=== PATIENT | female | born 1955 | race Caucasian/White ===

== ENCOUNTER 2018-07-05 10:00 | Emergency (ER) | payer BC ==
--- NOTE | 2018-07-05 11:31 | RAD REPORT ---
EXAM DESCRIPTION: RAD - Foot Left 3 View - 07/05/2018 10:57 am CLINICAL HISTORY: PAIN Swelling COMPARISON: No comparisons FINDINGS: Fracture involves the distal aspect of the proximal phalanx of the left great toe with adj acent soft tissue swelling. Large calcaneal spurs are present.
[2018-07-05 11:54] LABS: Absolute Lymphocytes (CBC) 0.7 K/uL (0.7-4.9); Absolute Monocytes 0.4 K/uL (0.1-1.3); Basophils % 1.1 % (0-1.3); Eosinophils % 2.8 % (0-4.4); Hematocrit 34.2 % (36.0-45.0); Lymphocytes % 8.8 % (15.3-44.8); MPV 7.5 fL (7.6-11.3); Monocytes % 4.9 % (3.3-12.3); RBC Red Blood Cell Count 3.78 M/uL (3.86-4.86)
[2018-07-05 12:09] LABS: Albumin 3.3 g/dL (3.4-5.0); Bilirubin Total 0.5 mg/dL (0.2-1.0); C-Reactive Protein 17.1 mg/L (<3.00); Potassium 4.7 mmol/L (3.5-5.1); Protein, Total 7.3 g/dL (6.4-8.2)
--- NOTE | 2018-07-05 13:12 | EDPHYS ---
Physician Documentation [facility] Name: Meseret Gallego Age: 63 yrs Sex: Female : 1955 Arrival Date: 07/05/2018 Time: 10:05 Bed 14 Private MD: out of town, doctor ED Physician Sukhi Uribe HPI: 07/05 10:50 This 63 yrs old Female presents to ER via Ambulatory with complaints of jmm DIABETIC TOE INFECTION. 10:50 The patient presents with pain, that is acute. Onset: The symptoms/episode jmm began/occurred gradually, 8 day(s) ago. Modifying factors: The symptoms are alleviated by nothing, the symptoms are aggravated by nothing. Associated signs and symptoms: Pertinent negatives: fever. This is a 63 year old female with a history of DM, HTN, hypothyroidism that presents to the ED with redness and swelling to the left great toe. Patient states she stubbed her left great toe 8 days ago with redness developing 2 days ago. Patient denies fever. . Historical: - Allergies: 10:28 Codeine; aj - Home Meds: 10:28 Insulin: Regular Sub-Q [Active]; Synthroid Oral [Active]; Unkown HTN medication aj [Active]; - PMHx: 10:28 Diabetes - IDDM; Hypertension; Hypothyroidism; aj - PSHx: 10:28 Thyroidectomy; neck fusion; ; back fusion; Knee surgery; Carpal Tunnel Repair; aj - Immunization history:: Adult Immunizations up to date. - Social history:: Smoking status: Patient/guardian denies using tobacco. - Ebola Screening: : Patient negative for fever greater than or equal to 101.5 degrees Fahrenheit, and additional compatible Ebola Virus Disease symptoms Patient denies exposure to infectious person Patient denies travel to an Ebola-affected area in the 21 days before illness onset No symptoms or risks identified at this time. ROS: 10:50 Constitutional: Negative for fever, chills, and weight loss, Eyes: Negative for injury, jmm pain, redness, and discharge, Cardiovascular: Negative for chest pain, palpitations, and edema, Respiratory: Negative for shortness of breath, cough, wheezing, and pleuritic chest pain. 10:50 MS/extremity: Positive for swelling. 10:50 Skin: Positive for erythema, swelling. 10:50 All other systems are negative. Exam: 10:50 Head/Face: atraumatic. Eyes: EOMI, no conjunctival erythema appreciated ENT: Moist [facility] Mucus Membranes Neck: Trachea midline, Supple Chest/axilla: Normal chest wall appearance and motion. Cardiovascular: Regular rate and rhythm. No edema appreciated Respiratory: Normal respirations, no respiratory distress appreciated Abdomen/GI: Non distended, soft 10:50 Constitutional: The patient appears in no acute distress, alert, awake. 10:50 Skin: cellulitis, that is moderate, on the plantar aspect of left first toe, left first toe and Left first toenail. 10:50 Neuro: Orientation: is normal, Mentation: is normal, Memory: is normal. 10:50 Psych: Behavior/mood is pleasant, cooperative. Vital Signs: 10:28 BP 156 / 69; Pulse 78; Resp 19; Temp 97.8; Pulse Ox 96% on R/A; Weight 115.67 kg; aj Height 5 ft. 6 in. (167.64 cm); 12:07 BP 147 / 76; Pulse 63; Resp 18; Pulse Ox 95% on R/A; ph 13:30 BP 144 / 78; Pulse 64; Resp 18; Temp 97.8; Pulse Ox 96% on R/A; ph 10:28 Body Mass Index 41.16 (115.67 kg, 167.64 cm) MDM: 10:50 Patient medically screened. [facility] 13:10 Data reviewed: vital signs, nurses notes. Counseling: I had a detailed discussion with [facility] the patient and/or guardian regarding: the historical points, exam findings, and any diagnostic results supporting the discharge/admit diagnosis, lab results, radiology results, the need for outpatient follow up, to return to the emergency department if symptoms worsen or persist or if there are any questions or concerns that arise at home. 13:10 ED course: Patient is alert and non toxic in appearance in the ED. CBC and sepsis [facility] markers wnl. Patient prescribed antibiotics with strict return precautions. patient understood and agrees with the plan of care. . 07/05 11:19 Order name: CBC with Diff; Complete Time: 12:04 [facility] 07/05 11:19 Order name: CMP; Complete Time: 12:16 [facility] 07/05 10:30 Order name: XRAY Foot LEFT 3 View; Complete Time: 11:40 07/05 11:19 Order name: Lactate; Complete Time: 12:16 [facility] 07/05 11:19 Order name: Procalcitonin; Complete Time: 12:32 [facility] 07/05 11:19 Order name: CRP; Complete Time: 12:16 [facility] 07/05 11:19 Order name: Saline Lock; Complete Time: 12:08 [facility] Administered Medications: No medications were administered Disposition: 07/05/18 13:11 Discharged to Home. Impression: Nondisplaced fracture of distal phalanx of left great toe, Cellulitis of the left great toe. - Condition is Stable. - Discharge Instructions: Cellulitis, Adult, Toe Fracture. - Prescriptions for Doxycycline Hyclate 100 mg Oral Tablet - take 1 tablet by ORAL route every 12 hours; 20 tablet. Bactrim DS 800- 160 mg Oral Tablet - take 1 tablet by ORAL route every 12 hours for 10 days; 20 tablet. - Medication Reconciliation Form, Thank You Letter, Antibiotic Education, Prescription Opioid Use form. - Follow up: Private Physician; When: 2 - 3 days; Reason: Recheck today's complaints, Continuance of care, Re-evaluation by your physician. Addendum: 07/09/2018 10:59 Co-signature as Attending Physician, Sukhi Uribe MD I agree with the assessment and c hermosillo plan of care. Signatures: Dispatcher [employer] Kiki Matias, RN Sukhi Brito MD MD cha Mickail, Joel, PA PA jmm Hall, Patricia, RN RN ph Corrections: (The following items were deleted from the chart) 07/05 13:31 13:11 07/05/2018 13:11 Discharged to Home. Impression: Nondisplaced fracture of distal ph phalanx of left great toe; Cellulitis of the left great toe. Condition is Stable. Forms are Medication Reconciliation Form, Thank You Letter, Antibiotic Education, Prescription Opioid Use. Follow up: Private Physician; When: 2 - 3 days; Reason: Recheck today's complaints, Continuance of care, Re-evaluation by your physician. [facility]
--- NOTE | 2018-07-05 13:12 | ER ---
Nurse's Notes [facility] Name: Meseret Gallego Age: 63 yrs Sex: Female : 1955 Arrival Date: 07/05/2018 Time: 10:05 Bed 14 Private MD: out of town, doctor Diagnosis: Nondisplaced fracture of distal phalanx of left great toe;Cellulitis of the left great toe Presentation: 07/05 10:25 Presenting complaint: Patient states: Report stubbing left great toe on floor 8 days aj ago. Report redness with clear serosanguinous drainage. Transition of care: patient was not received from another setting of care. Onset of symptoms was July 05, 2018. Risk Assessment: Do you want to hurt yourself or someone else? Patient reports no desire to harm self or others. Initial Sepsis Screen: Does the patient meet any 2 criteria? No. Patient's initial sepsis screen is negative. Does the patient have a suspected source of infection? Yes:. Care prior to arrival: None. 10:25 Method Of Arrival: Ambulatory aj 10:25 Acuity: CHRISTOPHER 3 aj Triage Assessment: 10:28 General: Appears in no apparent distress. comfortable, Behavior is calm, cooperative, aj appropriate for age. Pain: Complains of pain in plantar aspect of left first toe and Left first toenail. Neuro: Level of Consciousness is awake, alert, obeys commands, Oriented to person, place, time, situation, Appropriate for age. Respiratory: Airway is patent Respiratory effort is even, unlabored, Respiratory pattern is regular, symmetrical. Derm: Skin is intact, is healthy with good turgor, Skin is pink, warm \T\ dry. normal, Wound noted plantar aspect of left first toe and Left first toenail. Historical: - Allergies: 10: Codeine; aj - Home Meds: : Insulin: Regular Sub-Q [Active]; Synthroid Oral [Active]; Unkown HTN medication aj [Active]; - PMHx: 10:28 Diabetes - IDDM; Hypertension; Hypothyroidism; aj - PSHx: 10:28 Thyroidectomy; neck fusion; ; back fusion; Knee surgery; Carpal Tunnel Repair; aj - Immunization history:: Adult Immunizations up to date. - Social history:: Smoking status: Patient/guardian denies using tobacco. - Ebola Screening: : Patient negative for fever greater than or equal to 101.5 degrees Fahrenheit, and additional compatible Ebola Virus Disease symptoms Patient denies exposure to infectious person Patient denies travel to an Ebola-affected area in the 21 days before illness onset No symptoms or risks identified at this time. Screenin:06 Abuse screen: Denies threats or abuse. Denies injuries from another. Nutritional ph screening: No deficits noted. Tuberculosis screening: No symptoms or risk factors identified. Fall Risk None identified. Assessment: 11:00 General: Appears in no apparent distress. comfortable, well groomed, Behavior is calm, ph cooperative, appropriate for age, Denies fever, chills. Pain: Complains of pain in dorsum of left foot. Neuro: Level of Consciousness is awake, alert, obeys commands, Oriented to person, place, time, situation. Cardiovascular: Capillary refill < 3 seconds in bilateral fingers Patient's skin is warm and dry. Respiratory: Airway is patent Respiratory effort is even, unlabored. GI: Patient currently denies diarrhea, nausea, vomiting. Derm: Skin is healthy with good turgor, Skin is pink, warm \T\ dry. Musculoskeletal: Circulation, motion, and sensation intact. Range of motion: intact in all extremities, Swelling present in left first toe also noted to be reddened and warm to touch, pt reports small amount of serous drainage. 12:05 Reassessment: Patient appears in no apparent distress at this time. Patient and/or ph family updated on plan of care and expected duration. Pain level reassessed. Patient is alert, oriented x 3, equal unlabored respirations, skin warm/dry/pink. Pt resting comfortably, awaiting lab results, VSS. 13:29 Reassessment: Patient appears in no apparent distress at this time. Patient and/or ph family updated on plan of care and expected duration. Pain level reassessed. Patient is alert, oriented x 3, equal unlabored respirations, skin warm/dry/pink. Pt d/c home. Vital Signs: 10:28 BP 156 / 69; Pulse 78; Resp 19; Temp 97.8; Pulse Ox 96% on R/A; Weight 115.67 kg; aj Height 5 ft. 6 in. (167.64 cm); 12:07 BP 147 / 76; Pulse 63; Resp 18; Pulse Ox 95% on R/A; ph 13:30 BP 144 / 78; Pulse 64; Resp 18; Temp 97.8; Pulse Ox 96% on R/A; ph 10:28 Body Mass Index 41.16 (115.67 kg, 167.64 cm) aj ED Course: 10:05 Patient arrived in ED. sb2 10:05 out of town, doctor is Private Physician. sb2 10:26 Triage completed. aj 10:28 Arm band placed on left wrist. Patient placed in waiting room, Patient notified of wait aj time. 10:40 Inserted saline lock: 22 gauge in right antecubital area, using aseptic technique. ph 10:49 Esteban Ivy PA is PHCP. [facility] 10:49 Sukhi Uribe MD is Attending Physician. [facility] 10:57 X-ray completed. Portable x-ray completed in exam room. Patient tolerated procedure ls3 well. 10:58 XRAY Foot LEFT 3 View In Process Unspecified. EDMS 11:25 Sobeida Patel, RN is Primary Nurse. ph 12:06 Patient has correct armband on for positive identification. Bed in low position. Call ph light in reach. Side rails up X 1. Pulse ox on. NIBP on. 12:25 Initial lab(s) drawn, by fl, sent to lab. Inserted saline lock: 22 gauge antecubital mh5 area, using aseptic technique. Blood collected. 13:29 No provider procedures requiring assistance completed. IV discontinued, intact, ph bleeding controlled, No redness/swelling at site. Pressure dressing applied. 13:29 Dressings: non-adherent dressing x 1 left foot and left first toe. Ortho shoe applied mh5 to left foot. Administered Medications: No medications were administered Outcome: 13:11 Discharge ordered by . tiffany 13:30 Discharged to home ambulatory. ph 13:30 Condition: good 13:30 Discharge instructions given to patient, Instructed on discharge instructions, follow up and referral plans. medication usage, Demonstrated understanding of instructions, follow-up care, medications, Prescriptions given X 2. 13:31 Patient left the ED. ph Signatures: Dispatcher [employer] EDMS Kiki Chua RN RN aj Mickail, Joel, PA PA Sobeida Zuñiga RN RN ph Sybil Walls 5 Peyton Trujillo 2 Jasbir Orozco ls3
== END 2018-07-05 13:31 | disposition home or self-care (01) ==
LOC: ER 10:00
DX: S92.425A Nondisplaced fracture of distal phalanx of left great toe, initial encounter for closed fracture (principal); X58.XXXA Exposure to other specified factors, initial encounter; L03.032 Cellulitis of left toe; E11.9 Type 2 diabetes mellitus without complications; E03.9 Hypothyroidism, unspecified; I10 Essential (primary) hypertension; Z79.4 Long term (current) use of insulin; Z79.899 Other long term (current) drug therapy
CPT/HCPCS: 36415; 80053; 83605; 84145; 85025; 86140; 99284

== ENCOUNTER 2019-11-17 18:13 | Inpatient (IN) | payer BC, SELFPAY ==
[2019-11-17 19:56] LABS: Absolute Lymphocytes (CBC) 0.6 K/uL (0.7-4.9); Basophils % 1.5 % (0-1.3); Hematocrit 31.6 % (36.0-45.0); Lymphocytes % 7.2 % (15.3-44.8); MPV 7.8 fL (7.6-11.3); RBC Red Blood Cell Count 3.55 M/uL (3.86-4.86)
--- NOTE | 2019-11-17 19:58 | RAD REPORT ---
EXAM DESCRIPTION: Mitul Single View11/17/2019 7:51 pm CLINICAL HISTORY: sob COMPARISON: none FINDINGS: The lungs appear clear of acute infiltrate. The heart is borderline enlarged IMPRESSION: No acute abnormalities displayed
[2019-11-17 20:09] LABS: Protime INR 1.12
[2019-11-17 20:15] LABS: Potassium 6.9 mmol/L (3.5-5.1)
--- NOTE | 2019-11-17 20:50 | EDPHYS ---
Physician Documentation [facility] Name: Meseret Gallego Age: 64 yrs Sex: Female : 1955 Arrival Date: 11/17/2019 Time: 18:16 Bed 14 Private MD: Elizabet Flores ED Physician Marcel Sykes HPI: 11/16 19:14 This 64 yrs old Female presents to ER via Wheelchair with complaints of rn Abnormal Lab Results. 19:14 Reports sent in for elevated potassium, has been told needs dialysis in past but never rn initiated. + mild sob chronically without acute changes. + generalized weakness. . Onset: The symptoms/episode began/occurred at an unknown time. Severity of symptoms: At their worst the symptoms were mild in the emergency department the symptoms are unchanged. It is unknown whether or not the patient has had similar symptoms in the past. The patient has been recently seen by a physician:. Historical: - Allergies: 18:30 Codeine; ca1 18:30 Tape; ca1 - Home Meds: 18:30 Insulin: Regular Sub-Q [Active]; Synthroid Oral [Active]; Furosemide Oral [Active]; ca1 - PMHx: 18:30 Diabetes - IDDM; Hypertension; Hypothyroidism; ca1 - PSHx: 18:30 Thyroidectomy; neck fusion; ; back fusion; Knee surgery; Carpal Tunnel Repair; ca1 - Immunization history:: Adult Immunizations up to date, Pneumococcal vaccine is up to date, Flu vaccine is up to date. - Social history:: Smoking status: Patient denies any tobacco usage or history of. - Family history:: not pertinent. - Hospitalizations: : No recent hospitalization is reported. ROS: 19:14 Constitutional: Negative for fever, chills, and weight loss, Eyes: Negative for injury, rn pain, redness, and discharge, Neck: Negative for injury, pain, and swelling, Cardiovascular: Negative for chest pain, palpitations Respiratory: Negative for wheezing, and pleuritic chest pain, Abdomen/GI: Negative for abdominal pain, nausea, vomiting, diarrhea, and constipation, MS/Extremity: Negative for injury and deformity, Skin: Negative for injury, rash, and discoloration, Neuro: + generalized weakness Exam: 19:14 Constitutional: Well nourished patient who is awake, alert, and in no acute distress. rn Head/Face: Normocephalic, atraumatic. ENT: dry MM Neck: Supple, full range of motion without nuchal rigidity, or vertebral point tenderness. No Meningismus. Cardiovascular: Regular rate and rhythm. No pulse deficits. Respiratory: No increased work of breathing, no retractions or nasal flaring. Abdomen/GI: soft, non-tender MS/ Extremity: Pulses equal, no cyanosis. Neurovascular intact. Full, normal range of motion. Equal circumference. Neuro: Awake and alert, GCS 15 Vital Signs: 18:22 BP 106 / 58; Pulse 67; Resp 18 S; Temp 97(TE); Pulse Ox 100% on R/A; Weight 104.33 kg ca1 (R); Height 5 ft. 6 in. (167.64 cm) (R); Pain 0/10; 23:25 BP 104 / 51; Pulse 62; Resp 14; Temp 97.0(O); Pulse Ox 99% on R/A; Pain 0/10; ls4 18:22 Body Mass Index 37.12 (104.33 kg, 167.64 cm) ca1 MDM: 19:12 Patient medically screened. rn 20:47 Differential Diagnosis ESRD, hyperkalemia, volume overload. Data reviewed: vital signs, rn nurses notes, lab test result(s), EKG, radiologic studies, plain films, and as a result, I will admit patient. Test interpretation: by ED physician or midlevel provider: ECG, plain radiologic studies, CXR without acute abnormality. Counseling: I had a detailed discussion with the patient and/or guardian regarding: the historical points, exam findings, and any diagnostic results supporting the discharge/admit diagnosis, lab results, radiology results, the need for further work-up and treatment in the hospital. Admission orders: after a detailed discussion of the patient's condition and case, the admit orders are written by me. ED course: Consulted with Dr. Jason, requests 1 L NS bolus chased with lasix 40mg IV, lower potassium, then 1/2 amp bicarb in 1/2NS \T\ 75/hr. Will admit for tunneled catheter and likely initiation of dialysis. . 20:57 ED course: Consulted Dr. Longoria, regarding tunneled catheter, will do tomorrow. . rn 11/16 19:13 Order name: CBC with Diff; Complete Time: 20: rn 11/16 19:13 Order name: Basic Metabolic Panel; Complete Time: 20: rn 11/16 19:13 Order name: Protime (+inr); Complete Time: 20: rn 11/16 19:13 Order name: Ptt, Activated; Complete Time: 20: rn 11/16 19:23 Order name: N-Terminal Pro-brain Natriuretic Peptide; Complete Time: 20: rn 11/17 00:08 Order name: Potassium; Complete Time: 00:08 EDMS 11/16 18:43 Order name: EKG; Complete Time: 18:43 ca1 11/16 19:23 Order name: XRAY Chest (1 view); Complete Time: 20: rn 11/16 18:43 Order name: EKG - Nurse/Tech; Complete Time: 18:43 ca1 11/16 19:13 Order name: IV Start; Complete Time: 21:00 rn Administered Medications: 21:05 Drug: Insulin Regular Human 5 units {Co-Signature: rv (Braeden Grissom RN).} Route: ls4 IVP; Site: right antecubital; 21:05 Drug: D50W 50 ml Route: IVP; Site: right antecubital; ls4 21:10 Drug: Lasix 40 mg Route: IVP; Site: right antecubital; ls4 21:20 Drug: Kayexalate 30 grams Route: PO; ls4 21:20 Drug: NS 0.9% 1000 ml Route: IV; Rate: 1000 ml; Site: right antecubital; ls4 21:29 Drug: NS 0.45 % 1000 ml Route: IV; Rate: 75 ml/hr; Site: right antecubital; ls4 23:40 Follow up: IV Status: Infusion continued upon admission; IV Intake: 150ml ls4 Disposition: 11/17/19 20:49 Hospitalization ordered by Sudhakar Mendosa for Inpatient Admission. Preliminary diagnosis are Hyperkalemia, Volume overload, End stage renal disease. - Bed requested for Telemetry/MedSurg (Inpatient). - Status is Inpatient Admission. ls4 - Condition is Stable. - Problem is an ongoing problem. - Symptoms have improved. Critical care time excluding procedures: 20:49 Critical care time: Bedside Care: 25 minutes, Consultation: 5 minutes. Total time: 30 rn minutes Signatures: Dispatcher [employer] EDMS Marcel Sykes MD MD rn Stewart, Lisa, RN RN ls4 Rosa Lynne RN RN ca1 Braeden Grissom RN rv Corrections: (The following items were deleted from the chart) 21:47 20:49 Hospitalization Ordered by Sudhakar Mendosa for Inpatient Admission. Preliminary rn diagnosis is Hyperkalemia; Volume overload; End stage renal disease. Bed requested for Telemetry/MedSurg (Inpatient). Status is Inpatient Admission. Condition is Stable. Problem is an ongoing problem. Symptoms have improved. rn 11/17 00:16 11/16 21:47 11/17/2019 20:49 Hospitalization Ordered by Sudhakar Mendosa for Inpatient ls4 Admission. Preliminary diagnosis is Hyperkalemia; Volume overload; End stage renal disease. Bed requested for Telemetry/MedSurg (Inpatient). Status is Inpatient Admission. Condition is Stable. Problem is an ongoing problem. Symptoms have improved. rn
--- NOTE | 2019-11-17 20:50 | ER ---
Nurse's Notes [facility] Name: Meseret Gallego Age: 64 yrs Sex: Female : 1955 Arrival Date: 11/17/2019 Time: 18:16 Bed 14 Private MD: Elizabet Flores Diagnosis: Hyperkalemia;Volume overload;End stage renal disease Presentation: 11/16 18:22 Chief complaint: Patient states: Lab works done Sunday. PCP called this afternoon to ca1 come to the ER for high Potassium, they said it was over 7. Was supposed to start dialysis but hasn't done the second surgery for a dialysis fistula. Reports SOB x 1 year but has gotten worse since 3 months ago. Reports weakness and has fallen 5 times in a week this week. Today, N/V. Denies diarrhea. Denies chest pain. Coronavirus screen: Proceed with normal triage. Patient denies a cough. Patient reports shortness of breath or difficulty breathing. Patient denies measured and/or subjective temperature greater than 100.4F prior to today's visit. Patient denies travel on a cruise ship or to a country the [facility] currently lists as an affected area. Patient denies contact with known and/or suspected case of COVID-19. Ebola Screen: Patient negative for fever greater than or equal to 101.5 degrees Fahrenheit, and additional compatible Ebola Virus Disease symptoms Patient denies exposure to infectious person. Patient denies travel to an Ebola-affected area in the 21 days before illness onset. No symptoms or risks identified at this time. Initial Sepsis Screen: Does the patient meet any 2 criteria? No. Patient's initial sepsis screen is negative. Does the patient have a suspected source of infection? No. Patient's initial sepsis screen is negative. Risk Assessment: Do you want to hurt yourself or someone else? Patient reports no desire to harm self or others. Onset of symptoms was November 17, 2019. 18:22 Method Of Arrival: Wheelchair ca1 18:22 Acuity: CHRISTOPHER 3 ca1 Triage Assessment: 23:25 General: Appears in no apparent distress. uncomfortable, Behavior is calm, cooperative. ls4 Pain: Denies pain. Historical: - Allergies: 18:30 Codeine; ca1 18:30 Tape; ca1 - Home Meds: 18:30 Insulin: Regular Sub-Q [Active]; Synthroid Oral [Active]; Furosemide Oral [Active]; ca1 - PMHx: 18:30 Diabetes - IDDM; Hypertension; Hypothyroidism; ca1 - PSHx: 18:30 Thyroidectomy; neck fusion; ; back fusion; Knee surgery; Carpal Tunnel Repair; ca1 - Immunization history:: Adult Immunizations up to date, Pneumococcal vaccine is up to date, Flu vaccine is up to date. - Social history:: Smoking status: Patient denies any tobacco usage or history of. - Family history:: not pertinent. - Hospitalizations: : No recent hospitalization is reported. Screenin:34 Abuse screen: Denies threats or abuse. Denies injuries from another. Nutritional ls4 screening: No deficits noted. Tuberculosis screening: No symptoms or risk factors identified. Fall Risk None identified. Vital Signs: 18:22 BP 106 / 58; Pulse 67; Resp 18 S; Temp 97(TE); Pulse Ox 100% on R/A; Weight 104.33 kg ca1 (R); Height 5 ft. 6 in. (167.64 cm) (R); Pain 0/10; 23:25 BP 104 / 51; Pulse 62; Resp 14; Temp 97.0(O); Pulse Ox 99% on R/A; Pain 0/10; ls4 18:22 Body Mass Index 37.12 (104.33 kg, 167.64 cm) ca1 ED Course: 18:16 Patient arrived in ED. as 18:17 Elizabet Flores MD is Private Physician. as 18:28 Triage completed. ca1 18:30 Arm band placed on right wrist. ca1 18:43 EKG completed in triage. Results shown to MD. ca1 19:12 Marcel Sykes MD is Attending Physician. rn 19:15 Patient has correct armband on for positive identification. Bed in low position. Call ls4 light in reach. Side rails up X 1. 19:15 director information on. Pulse ox on. NIBP on. Warm blanket given. Verbal reassurance given. ls4 Diet:. 19:15 No provider procedures requiring assistance completed. Inserted saline lock: 20 gauge ls4 in right antecubital area, using aseptic technique. Blood collected. 19:51 XRAY Chest (1 view) In Process Unspecified. EDMS 20:49 Sudhakar Mendosa is Hospitalizing Provider. rn 20:59 Jodie Bell, RN is Primary Nurse. ls4 Administered Medications: 21:05 Drug: Insulin Regular Human 5 units {Co-Signature: isra (Braeden Grissom RN).} Route: ls4 IVP; Site: right antecubital; 21:05 Drug: D50W 50 ml Route: IVP; Site: right antecubital; ls4 21:10 Drug: Lasix 40 mg Route: IVP; Site: right antecubital; ls4 21:20 Drug: Kayexalate 30 grams Route: PO; ls4 21:20 Drug: NS 0.9% 1000 ml Route: IV; Rate: 1000 ml; Site: right antecubital; ls4 21:29 Drug: NS 0.45 % 1000 ml Route: IV; Rate: 75 ml/hr; Site: right antecubital; ls4 23:40 Follow up: IV Status: Infusion continued upon admission; IV Intake: 150ml ls4 Intake: 23:40 IV: 150ml; Total: 150ml. ls4 Outcome: 20:49 Decision to Hospitalize by Provider. rn 11/17 00:16 Patient left the ED. ls4 Signatures: Dispatcher [employer] Lilian Lazcano Roman, MD MD rn Stewart, Lisa, RN RN 4 Rosa Lynne RN RN ca1 Braeden dhaliwal
[2019-11-17] MEDS ORDERED: INSULIN -REGULAR HUMAN 50 UNIT/0.5 ML ML ONE (21:15)
[2019-11-17] MEDS ORDERED: D50W 25 GM/50 ML SYRINGE/VIAL IV ONE (21:15)
[2019-11-17] MEDS ORDERED: SOD POLYSTYREN SUL 15 GM/60 ML UCUP ONE (21:16)
[2019-11-17] MEDS ORDERED: FUROSEMIDE 40 MG/4 ML VIAL ONE (21:16)
[2019-11-17] MEDS ORDERED: NACHLORIDE 0.45% 1,000 ML IV ONE (21:17)
[2019-11-17] MEDS ORDERED: NA CHLORIDE 0.9% 1,000 ML ONE (21:17)
[2019-11-17] MEDS ORDERED: SODIUM BICARB 50 MEQ/50ML VIAL ONE (21:45)
--- NOTE | 2019-11-17 22:27 | P.HP ---
Certification for Inpatient Patient admitted to: Inpatient With expected LOS: >2 Midnights Practitioner: I am a practitioner with admitting privileges, knowledge of patient current condition, hospital course, and medical plan of care. Services: Services provided to patient in accordance with Admission requirements found in Title 42 Section 412.3 of the Code of Federal Regulations Patient History Date of Service: 11/17/19 Reason for admission: Abnormal labs History of Present Illness: 64-year-old woman with a history diabetes mellitus type 2, chronic kidney disease stage 4, hypothyroidism was directed to the emergency department due to hyperkalemia. Patient moved to the area from [place] 1 week ago and she is in the process of establishing care with Dr. Flores. She reports shortness of breath with exertion. Her potassium level in the ED is 6.9. EKG demonstrates sinus bradycardia with nonspecific T-wave flattening. Patient states she continues to make urine. Dr. Flores was contacted by the ED physician who recommended Kayexalate, D50, insulin, IV fluids, IV lasix and bicarb drip which were given in the ED. He also recommended admission for tunneled catheter placement to initiate dialysis. Patient is admitted for further management. - Past Medical/Surgical History Diabetic: Yes -: DM type 2 -: Hypertension -: Hypothyroidism -: Chronic kidney disease stage 4 - Family History Mother -: Cancer - Social History Smoking Status: Never smoker Alcohol use: No CD- Drugs: No Place of Residence: Home Review of Systems Other: Patient denies chest pain, denies diarrhea, denies fever. Except as documented, all other systems reviewed and negative. Physical Examination - Physical Exam General: Alert, In no apparent distress, Oriented x3 HEENT: Mucous membr. moist/pink, Sclerae nonicteric Neck: Supple, JVD not distended Respiratory: Clear to auscultation bilaterally, Normal air movement Cardiovascular: No edema, Regular rate/rhythm, Normal S1 S2, No murmurs Capillary refill: <2 Seconds Gastrointestinal: Normal bowel sounds, Soft and benign, Non-distended, No tenderness Musculoskeletal: No swelling, No erythema Integumentary: No rashes Neurological: Normal speech, Normal strength at 5/5 x4 extr - Studies Laboratory Data (last 24 hrs) 11/17/19 19:37: PT 13.2 H, INR 1.12, APTT 33.8 11/17/19 19:37: Sodium 137, Potassium 6.9 H*, BUN 146 H, Creatinine 5.27 H*, Glucose 82 11/17/19 19:37: WBC 7.9, Hgb 10.4 L, Hct 31.6 L, Plt Count 195 Assessment and Plan - Problems (Diagnosis) (1) Hyperkalemia Current Visit: Yes Status: Acute (2) Chronic kidney disease, stage 4 (severe) Current Visit: Yes Status: Acute (3) Diabetes mellitus Current Visit: Yes Status: Acute (4) Anemia in chronic kidney disease Current Visit: Yes Status: Acute - Plan Admit to telemetry. Patient has been given Kayexalate, IV Lasix, insulin and D50 and started on bicarb drip. Will check potassium level in 6 hr and repeat Kayexalate as needed. Continue IV bicarb drip per nephrology recommendation. Consulted Nephrology Consult general surgery for tunneled catheter placement. Insulin sliding scale for glucose management. Continue home dose Synthroid. Monitor renal function. - Advance Directives Does patient have a Living Will: No Does patient have a Durable POA for Healthcare: No
[2019-11-17] MEDS: NA BICARB IV SCH ×2 (23:00)
[2019-11-17] MEDS: NACHLORIDE IV SCH ×2 (23:00)
[2019-11-18 00:06] VITALS: BMI 38.2
[2019-11-18 02:59] LABS: Urine Appearance CLEAR; Urine Bilirubin NEGATIVE (NEG); Urine Blood TRACE (NEG); Urine Color YELLOW; Urine Glucose NEGATIVE (NEG); Urine Protein 1+ (NEG); Urine Urobilinogen 0.2 mg/dL (0.2-1.0)
[2019-11-18 03:00] LABS: Urine Microscopic Reflex ORDER UMIC
[2019-11-18 03:15] LABS: Urine Bacteria <20 /HPF (<20); Urine Culture Reflex Order REFLEXED; Urine RBC <5 /HPF (NONE SEEN)
[2019-11-18 06:00] LABS: Absolute Lymphocytes (CBC) 0.6 K/uL (0.7-4.9); Basophils % 1.1 % (0-1.3); Hematocrit 28.6 % (36.0-45.0); Lymphocytes % 7.7 % (15.3-44.8); MPV 7.6 fL (7.6-11.3)
[2019-11-18 06:01] LABS: Phosphorus 5.5 mg/dL (2.5-4.9); Potassium 5.7 mmol/L (3.5-5.1)
[2019-11-18] MEDS ORDERED: SOD POLYSTYREN SUL 15 GM/60 ML UCUP PO ONE (07:04)
--- NOTE | 2019-11-18 07:20 | EKG ---
Test Date: 2019-11-17 Test Time: 18:44:17 Litigation Associate: SHREYA MEASUREMENT RESULTS: Intervals: Rate: 59 NC: 200 QRSD: 76 QT: 406 QTc: 401 [place]: P: 116 NC: 200 QRS: 21 T: 92 INTERPRETIVE STATEMENTS: Sinus bradycardia Nonspecific ST and T wave abnormality Abnormal ECG No previous ECG available for comparison Electronically Signed On 11-18-19 07:19:44 CDT by William Uribe
[2019-11-18] MEDS: INSULIN -REGULAR HUMAN 50 UNIT/0.5 ML ML SQ SCH ×4 (07:30→21:17)
[2019-11-18] MEDS ORDERED: NS 0.9% VIAL 10 ML ONE (07:59)
[2019-11-18] MEDS ORDERED: NA CHLORIDE 0.9% 100 ML IV ONE (08:00)
[2019-11-18] MEDS ORDERED: HEPARIN 5000 UNIT/ML 1 ML VIAL ONE (08:00)
[2019-11-18] MEDS ORDERED: LIDOCAINE 1% 20 ML MDV ONE (08:00)
[2019-11-18] MEDS ORDERED: NA CHLORIDE 0.9% 1,000 ML ONE (08:18)
[2019-11-18] MEDS ORDERED: CEFAZOLIN/SWI 1gm 1 GM/10 ML SYR ONE (08:36)
[2019-11-18] MEDS ORDERED: FENTANYL CITR 100 MCG/2 ML ONE ×2 (08:37→09:22)
[2019-11-18] MEDS ORDERED: MIDAZOLAM HCL 2 MG/2 ML INJ ONE (08:37)
[2019-11-18] MEDS ORDERED: propofoL 200 MG/20 ML VIAL IV ONE (08:37)
[2019-11-18] MEDS ORDERED: LIDOCAINE 1% MPF 5 ML VIAL ONE (08:37)
[2019-11-18] MEDS: HEPARIN 5000 UNIT/ML 1 ML VIAL SQ SCH ×2 (09:00→21:18)
--- NOTE | 2019-11-18 09:30 | P.OP ---
Preoperative diagnosis: ARF, Hyperkalemia Postoperative diagnosis: same Primary procedure: RIWalter Segovia, Fluoroscopy Anesthesia: MAC Estimated blood loss: min Specimen: none Findings: Normal Anatomy Complications: None Transferred to: Recovery Room Condition: Good
--- NOTE | 2019-11-18 10:24 | PREOPCON ---
Date of Consultation: 11/17/2019 Reason For Consultation: Patient needs a tunneled dialysis catheter. History Of Present Illness: The patient is a 64-year-old female, who just recently moved here from [facility] with chronic renal disease. She did have a fistula in her left arm, which is not working and was supposed to initiate dialysis pretty soon. However, she saw Dr. Flores. Her potassium was sig nificantly elevated. She was advised to go to the emergency room. She was given Kayexalate, D50 ins ulin, fluids, Lasix, bicarb to medically manage her high potassium. She was admitted and I was consu lted for tunneled catheter placement. She denies any sore throat, runny nose, cough, headaches, or d izziness. No chest pain. No fever or chills. Review of Systems: Otherwise unremarkable. Past Medical History: Significant for hypertension, hypothyroidism, hypercholesterolemia, type 2 pearl betes, and chronic kidney disease. Past Surgical History: Knee replacement. Allergies: CODEINE AND ADHESIVE TAPE. Social History: She does not smoke or drink. Family History: Noncontributory. Physical Examination: Vital Signs: Stable. She is currently afebrile. General: She is awake, alert, oriented x3. Head and Neck: Cranial nerves 2 through 12 grossly within normal limits. No neck masses. No JVD. Throat clear. Neck is supple. Chest: Clear. Heart: S1, S2. Abdomen: Soft. Extremities: Neurovascularly intact. Neurologic: Nonfocal. Laboratory Data: White count is 7.9, slight left shift. INR is 1.12. Chemistry showed initial pota ssium of 6.9, currently down to 5.7; BUN and creatinine are 135 and 4.83 this morning and she is a li ttle acidotic. Assessment: Acute renal failure with hyperkalemia. Recommendations: We will go ahead and place a Tesio catheter. Patient understands the risks, benefi ts, and alternatives and agrees to procedure. /MODL Voice ID: [id number] Report ID: [id number]
--- NOTE | 2019-11-18 10:27 | OP ---
Date of Procedure: 11/18/2019 Surgeon: Basim Longoria MD Preoperative Diagnoses: Acute renal failure and hyperkalemia. Postoperative Diagnoses: Acute renal failure and hyperkalemia. Procedure: Placement of right IJ Tesio catheter, interpretation of intraoperative fluoroscopy. Estimated Blood Loss: Minimal. Specimens: None. Findings: Normal anatomy. Anesthesia: MAC. Complications: None. Disposition: Patient tolerated the procedure, in stable condition, taken to Recovery in good general condition. Procedure In Detail: Patient was brought to the OR, placed in supine position. MAC anesthesia was b egun. Patient was prepped and draped in the usual sterile fashion. Lidocaine 1% infiltrated locally . An 18-gauge needle was used to access the right IJ vein. Guidewire was passed. Position was conf irmed with fluoroscopy. Counterincision was made on the right anterior chest. A tunneling device wa s used to tunnel the dialysis catheter between the 2 wounds. Then, Seldinger technique was used and tip of the catheter was placed in the SVC under fluoroscopy. Catheter was flushed with heparin and p acked with heparin with good blood flow and then 3-0 chromic was used to approximate the subcutaneous tissue and close skin and 3-0 nylon used to secure the tube to the chest wall. Sterile dressing was applied. Patient was awakened and taken to Recovery in good general condition and a chest x-ray has been order ed. /MODL Voice ID: [id number] Report ID: [id number]
--- NOTE | 2019-11-18 10:40 | RAD REPORT ---
EXAM DESCRIPTION: RAD - Chest Single View - 11/18/2019 10:28 am CLINICAL HISTORY: S/P Tesio Chest pain. COMPARISON: Chest Single View dated 11/17/2019 FINDINGS: Portable technique limits examination quality. Right-sided venous catheter has been placed with its tip in the SVC. No postprocedure pneumothorax. I nterstitial pulmonary edema seen. The heart is moderately enlarged in size. IMPRESSION: No postprocedure pneumothorax seen.
--- NOTE | 2019-11-18 10:40 | RAD REPORT ---
EXAM DESCRIPTION: RAD - Fluoroscopy <1 Hour - 11/18/2019 9:30 am CLINICAL HISTORY: Venous catheter insertion. TESIO PLACEMENT IN OR 2 COMPARISON: No comparisons FINDINGS: Fluoroscopic imaging is submitted from placement of a venous catheter. Details of the pro cedure not available. Fluoroscopy time: 0.1 minutes
[2019-11-18] MEDS: NACHLORIDE IV SCH ×2 (12:40)
[2019-11-18] MEDS: NA BICARB IV SCH ×2 (12:40)
--- NOTE | 2019-11-18 16:49 | PN ---
Date of Progress Note: 11/18/2019 Subjective: The patient seen and examined, chart reviewed, and case discussed with RN and Dr. Longoria. Patient went for hemodialysis catheterization today to start dialysis. Medications: List reviewed. Physical Examination: Vital Signs: Temperature 97.2, heart rate 79, blood pressure 120/47, respirations 16, O2 of 100% on room air. General: Awake, alert, oriented x3. Elderly female, no acute distress. Obese, BMI 38. Cardiovascular: S1, S2. Regular rate and rhythm. Respiratory: Moving air well bilaterally. No wheezing or stridor. Gastrointestinal: Abdomen is soft, nontender, nondistended. Positive bowel sounds. Extremities: No clubbing, cyanosis. Minimal pedal edema. Neurologic: Nonfocal. Laboratory Data: Sodium 141, potassium 5.7, chloride 113, CO2 of 19, BUN 135, creatinine 4.83, gluco se 113, calcium 8.5, phosphorus 5.5. WBC 7.9, H and H 9.6 and 28.6, platelets 160. Assessment And Plan: A 64-year-old female with, 1.Hyperkalemia. Given Lasix, insulin, Kayexalate, D50, and bicarb. Improved but still elevated at 5.7. We will need dialysis. 2.Chronic kidney disease stage 4. Patient has been seen Nephrology in [place], has AV fistula that is not matured yet in the left arm. Received a temporary hemodialysis catheter today. Will go for h emodialysis. Appreciate Nephrology input. 3.Diabetes mellitus type 2, insulin requiring, with end-stage renal disease. We will continue with home dose of insulin. Monitor blood glucose levels. 4.Anemia of chronic disease. We will continue to monitor H and H. 5.Obesity, BMI 38. 6.Essential hypertension, stable. We will hold medications due to renal function at this time. 7.Hypothyroidism. Resume home medications as appropriate. 8.Deep vein thrombosis prophylaxis. Heparin, renally dosed. SA/MODL Voice ID: [id number] Report ID: [id number]
--- NOTE | 2019-11-18 18:46 | CON ---
Date of Consultation: 11/18/2019 Reason For Consultation: Elevated BUN and creatinine, hyperkalemia. History Of Present Illness: This is a pleasant 64-year-old female with significant past medical hist ory of diabetes complicated with neuropathy and retinopathy/nephropathy, hypertension, hyperlipidemia . The patient is known to have chronic kidney disease, stage IV progression, status post left AV critical access hospital. Patient came to the office and apparently she was under the impression that she needs to be started on dialysis. Reviewing the record from [place], patient had creatinine between 2.2-2 .5 up to August 2018. After that, the patient did not have any lab workup in the office. Patient did not have any uremia, no sign of over volume. For that reason, we sent the patient for stat labs. Patient's labs show hyperkalemia with acidosis and GFR of 7. For that reason, patient was directed to the ER. Over the night, patient had received the cocktail, started on bicarb drip, and in the mo rn, PermCath has been inserted and we took the patient for urgent dialysis. Patient denied taking any nonsteroidal, no IV contrast. Past Medical History: Includes: 1.Diabetes complicated with neuropathy, retinopathy, and nephropathy. 2.Hypertension. 3.Hyperlipidemia. 4.Chronic kidney disease, stage IV, progression to end-stage renal disease. Past Surgical History: AV fistula creation. Family History: Positive for hypertension and chronic kidney disease. Social History: Denies smoking. Denies drinking. Denies drugs abuse. Allergy: Positive for codeine and adhesive tape. Review of Systems: Head and Neck: No red eye. No ear pain. GI: No nausea. No vomiting. : No polyuria. No dysuria. No hematuria. 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 Respiratory: Has shortness of breath. Cardiovascular: Has leg swelling. Endocrine: No polydipsia. Skin: No rash. Neuro: Has neuropathy. Musculoskeletal: Generalized fatigue. Physical Examination: Vital Signs: When I saw the patient, blood pressure 129/50, pulse of 74, afebrile. Chest: Faint rales bilateral base. Heart: S1, S2. Systolic murmur. Abdomen: Soft. Nontender. Extremities: +1 edema. Neurologic: Alert. Nonfocal. Patient had decreased vision. Laboratory Data: WBC 7.9, H and H 9.6/28.6, and platelets 160. Chest x-ray, cardiomegaly with mild congestion. Sodium 141, potassium 5.7, bicarb 19, BUN 135, creatinine 4.8, calcium 8.5, phosphorus 5 .5. Urinalysis, specific gravity of 1.010, negative for infection. Current Medications: The patient is on bicarb drip, aspirin, atorvastatin, Zoloft, Tylenol, insulin. Assessment And Plan: 1.End-stage renal disease with a previous history of chronic kidney disease, advanced. The patient progressed to end-stage renal disease. We will initiate the patient on dialysis and we will do dialy sis today, tomorrow, and day after, and we will follow up the patient. Patient today going to be pearl lyzed on 250 for 2.5 hours and we will follow up. We will remove only 1 L. Tomorrow, we will increa se the pump speed to 300 for 3 hours and we will follow up. 2.Hypertension. Controlled. Optimal. Continue to hold all blood pressure medication. We will uti lize blood pressure for more ultrafiltration and to establish better volume control. 3.Hyperkalemia. Patient is going to be dialyzed on low-potassium bath. 4.Acidosis secondary to renal failure. Patient is going to be dialyzed on low-potassium bath. 5.Diabetes, as by Primary. 6.Anemia of chronic kidney disease. We will send for the workup and we will follow up. Thank you Dr. Rojo, for allowing us to participate in the care of your patient. CR Voice ID: [id number] Report ID: [id number]
[2019-11-18] MEDS: ONDANSETRON 4 MG/2 ML VIAL IV PRN (20:46)
[2019-11-18] MEDS: PANTOPRAZOLE 40MG TABLET PO SCH (21:16)
[2019-11-18] MEDS: ATORVASTATIN 40 MG TAB PO SCH (21:16)
[2019-11-18] MEDS: ASPIRIN EC 325 MG TABLET PO SCH (21:16)
[2019-11-18] MEDS: SERTRALINE HCL 100 MG TAB PO SCH (21:16)
[2019-11-18] MEDS: INSULIN GLARGINE 100 UNITS/ML SQ SCH (21:18)
[2019-11-19 04:20] LABS: Absolute Lymphocytes (CBC) 0.6 K/uL (0.7-4.9); Basophils % 1.2 % (0-1.3); Lymphocytes % 8.6 % (15.3-44.8); MPV 7.3 fL (7.6-11.3); RBC Red Blood Cell Count 3.28 M/uL (3.86-4.86)
[2019-11-19 04:57] LABS: Bilirubin Total 0.4 mg/dL (0.2-1.0); Ferritin 393.9 ng/mL (8-388); Folic Acid, (Folate) 6.4 ng/mL (3.1-17.5); Phosphorus 4.4 mg/dL (2.5-4.9); Potassium 4.6 mmol/L (3.5-5.1); Protein, Total 6.8 g/dL (6.4-8.2); Thyroid Stimulating Hormone 3.74 uIU/mL (0.360-3.740); Uric Acid 4.1 mg/dL (2.6-6.0)
[2019-11-19] MEDS: INSULIN -REGULAR HUMAN 50 UNIT/0.5 ML ML SQ SCH ×4 (07:30→21:43)
[2019-11-19] MEDS: ONDANSETRON 4 MG/2 ML VIAL IV PRN ×2 (08:51→18:35)
[2019-11-19] MEDS: PANTOPRAZOLE 40MG TABLET PO SCH (08:51)
[2019-11-19] MEDS: INSULIN GLARGINE 100 UNITS/ML SQ SCH ×2 (09:00→21:43)
[2019-11-19] MEDS: HEPARIN 5000 UNIT/ML 1 ML VIAL SQ SCH ×2 (13:49→21:44)
[2019-11-19] MEDS: BUPROPION HCL XL 150 MG TAB PO SCH (13:49)
[2019-11-19] MEDS: SERTRALINE HCL 100 MG TAB PO SCH ×2 (13:51→21:41)
--- NOTE | 2019-11-19 13:53 | PN ---
Date of Progress Note: 11/19/2019 Subjective: Patient seen and examined. Chart reviewed and case discussed with RN and Dr. Flores. Patient had dialysis yesterday and will be going again today. Feeling better. Medications: List reviewed. Physical Examination: Vital Signs: Temperature 99.1, heart rate 86, blood pressure 120/57, respirations 20, O2 of 94% on room air. General: Awake, alert, oriented x3, in some mild distress. CV: S1, S2. Regular rate and rhythm. Peripheral pulses present. Respiratory: Moving air well bilaterally. No wheezing or stridor. Gastrointestinal: Abdomen is soft, nontender, nondistended. Positive bowel sounds. Extremities: No clubbing, cyanosis. Mild pedal edema. Neurologic: Nonfocal. Laboratory Data: Sodium 138, potassium 4.6, chloride 107, CO2 of 27, BUN 70, creatinine 3.38, glucose 180. WBC 7.3, H and H 9.7 and 29, platelets 165. Urine culture growing out mixed fercho. Assessment: A 64-year-old female with: 1. Hyperkalemia, improved. We will continue dialysis. 2. End-stage renal disease. Patient apparently has had chronic kidney disease for several years. Has had AV fistula placed as well for an anticipation of starting dialysis, however, not yet matured. Recently moved from [place]. Appreciate Nephrology input. Patient will need to be set up with outpatient dialysis prior to discharge. 3. Diabetes mellitus type 2, insulin requiring, with end-stage renal disease. Continue sliding scale insulin. Monitor blood glucose levels. 4. Anemia of chronic disease. Anemia panel shows low iron. 5. Obesity, BMI 38. 6. Essential hypertension. We will hold SUJIT inhibitor and hydrochlorothiazide due to kidney dysfunction. 7. Hypothyroidism. Continue home medications. 8. Deep venous thrombosis prophylaxis with heparin, renally dosed. 9. Likely discharge in the next 24-48 hours once medically stable and dialysis set up. SA/MODL Voice ID: [id number] Report ID: [id number]
--- NOTE | 2019-11-19 18:59 | PN ---
Date of Progress Note: 11/19/2019 The patient was admitted with hyperkalemia, progression of kidney disease from stage 5 to end-stage r enal disease. Patient had PermCath placement, underwent dialysis yesterday, tolerated the dialysis v eboni well, but apparently after dialysis, patient started having nausea, vomiting, and headache. Marycruz ent had decrease in her BUN from 90 to 60. Patient still had some nausea and vomiting till the morni ng. Physical Examination: Vital Signs: When I saw the patient, blood pressure 120/57, pulse of 86, afebrile. Chest: Clear to auscultation. Heart: S1, S2. Regular. Abdomen: Soft, nontender. Extremities: Trace edema. Neuro: Alert. No tremor. No nystagmus. Laboratory Data: WBC 7.3, H and H 9.7/29. Sodium 138, potassium 4.6, bicarb 27, BUN 70, creatinine 3.3, calcium 9.2, phosphorus 4.4, iron saturation 11.4, ferritin 393. Serum protein electrophoresis is still pending. Vitamin D still pending. PTH 284. TSH 3.4. Current Medications: The patient on include: 1.Aspirin. 2.Heparin. 3.Atorvastatin. 4.Zoloft. 5.Tylenol. 6.Zofran. 7.Insulin. Assessment And Plan: 1.End-stage renal disease. Currently, patient had possible symptoms of disequilibrium. Again, post pone the dialysis of today. We will do the dialysis tomorrow. We will monitor the patient. I am go ing to start the patient on intravenous hydration and we will monitor the patient. 2.Disequilibrium, low suspicious. We will decrease the flow for the patient. We will skip dialysis today. 3.Hypertension, controlled optimal. Continue current medication. 4.Secondary hyperpara. Calcium and phosphorus on the goal. 5.Anemia of chronic kidney disease with iron-deficiency anemia. Start the patient on intravenous ir on. 6.Diabetes as by Primary. 7.Hyperkalemia status post dialysis, recovered, resolved. 8.Acidosis secondary to renal failure, resolved. Discontinue bicarb drip. MA/MODL Voice ID: [id number] Report ID: [id number]
[2019-11-19] MEDS: ASPIRIN EC 325 MG TABLET PO SCH (21:00)
[2019-11-19] MEDS: ATORVASTATIN 40 MG TAB PO SCH (21:42)
[2019-11-19] MEDS: ACETAMINOPHEN 500 MG TAB PO PRN (22:47)
[2019-11-20] MEDS: ONDANSETRON 4 MG/2 ML VIAL IV PRN (00:43)
[2019-11-20 04:50] LABS: Albumin 3.1 g/dL (3.4-5.0); Phosphorus 3.6 mg/dL (2.5-4.9); Potassium 4.2 mmol/L (3.5-5.1)
[2019-11-20] MEDS: INSULIN -REGULAR HUMAN 50 UNIT/0.5 ML ML SQ SCH ×4 (07:30→20:40)
[2019-11-20] MEDS: SERTRALINE HCL 100 MG TAB PO SCH ×2 (07:37→20:37)
[2019-11-20] MEDS: PANTOPRAZOLE 40MG TABLET PO SCH (07:37)
[2019-11-20] MEDS: BUPROPION HCL XL 150 MG TAB PO SCH (07:37)
[2019-11-20] MEDS: HEPARIN 5000 UNIT/ML 1 ML VIAL SQ SCH ×2 (07:37→20:41)
[2019-11-20] MEDS: INSULIN GLARGINE 100 UNITS/ML SQ SCH ×2 (07:37→20:40)
[2019-11-20] MEDS: SOD FERRIC GLUC COMPLX/SUCROSE 125 MG in NA CHLORIDE 0.9% 250 ML IV SCH (10:19)
[2019-11-20] MEDS: METOCLOPRAMIDE 10 MG/2mL INJ IV SCH ×3 (11:30→20:37)
--- NOTE | 2019-11-20 14:45 | PN ---
Date of Progress Note: 11/20/2019 Subjective: Patient was admitted for progression of her disease, end-stage renal disease. The patie nt initiated on dialysis on right-sided PermCath. Physical Examination: Vital Signs: When I saw the patient, blood pressure 114/57, pulse of 80, afebrile. Patient had good urine output of 600 yesterday. Chest: Clear to auscultation. Heart: S1, S2 regular. Abdomen: Soft, nontender. Extremity: Trace edema. Left AV fistula, radiocephalic. Laboratory Data: WBC 7.3, H and H 9.7/29, platelets 165. Sodium 141, potassium 4.2 bicarb 26, BUN 6 4, creatinine 3.4, GFR of 14, calcium 8.8. Phosphorus 3.6. Albumin 3.1. Current Medications: The patient includes: 1.Atorvastatin. 2.Zoloft. 3.Pantoprazole. 4.IV iron. Assessment And Plan: 1.End-stage renal disease. We will continue the patient on dialysis, TTS for the time being and we are waiting for chair time from the outpatient. 2.Hypertension, controlled optimal. Continue current treatment. 3.Anemia of chronic kidney disease/iron-deficiency anemia. Patient was started on IV iron. We will follow up the response. 4.Secondary hyperpara. We will start the patient on calcitriol and we will follow up. 5.Proteinuria with anemia. Serum protein electrophoresis has been sent, still pending. 6.Disequilibrium syndrome, symptoms has be resolved. We will follow up neuro check. 7.Gastroparesis. Patient was started on Zofran. I am going to start the patient on low-dose metocl opramide and we will follow up. JOSÉ MIGUEL/RENÉ Voice ID: [id number] Report ID: [id number]
--- NOTE | 2019-11-20 16:24 | PN ---
Date of Progress Note: 11/20/2019 History Of Present Illness: Patient seen and examined. Chart reviewed and case discussed with PERRI Flores. Patient will be going for dialysis today. Yesterday, it was skipped due to her symp toms and possible volume contraction. Patient is feeling better today. No nausea or vomiting. Medications: List reviewed. Physical Examination: Vital Signs: Temperature 97.6, heart rate 80, blood pressure 114/56, respirations 17, O2 sat 96% on room air. General: Awake, alert, oriented x3. Elderly female, not in any acute distress. Obese. CV: S1, S2. Regular rate and rhythm. Peripheral pulses present. Respiratory: Moving air well bilaterally. No wheezing or stridor. No use of accessory muscles. Gastrointestinal: Abdomen is soft, nontender, nondistended. Positive bowel sounds. Extremities: No clubbing, cyanosis, or edema. Neurologic: Nonfocal. Laboratory Data: Sodium 141, potassium 4.2, chloride 108, CO2 of 26, BUN 64, creatinine 3.4, glucose 87, calcium 8.8, phosphorus 2.6, albumin 3.1. WBC 7.3, H and H 9.7 and 29, platelets 165. Assessment: A 64-year-old female with: 1.Hyperkalemia, corrected. Continue with dialysis. 2.End-stage renal disease, now started on dialysis. AV fistula is not yet matured. Patient has pearl lysis catheter in place. Appreciate Nephrology input. Awaiting dialysis setup. 3.Diabetes mellitus type 2, insulin requiring with end-stage renal disease. Continue sliding scale insulin. Monitor blood glucose levels. 4.Anemia of chronic disease and iron deficiency. We will continue to monitor H and H, transfuse as needed. 5.Essential hypertension. Blood pressure is stable. 6.Obesity, BMI 38. 7.Hypothyroidism. Continue home medications. 8.Deep venous thrombosis prophylaxis with heparin renally dosed. Plan: Discharge once dialysis has been set up. SA/MODL Voice ID: [id number] Report ID: [id number]
[2019-11-20] MEDS: ATORVASTATIN 40 MG TAB PO SCH (20:36)
[2019-11-20] MEDS: ASPIRIN EC 325 MG TABLET PO SCH (20:37)
[2019-11-21] MEDS: ACETAMINOPHEN 500 MG TAB PO PRN (00:31)
[2019-11-21 06:07] LABS: Absolute Lymphocytes (CBC) 0.9 K/uL (0.7-4.9); Basophils % 1.8 % (0-1.3); Hematocrit 32.7 % (36.0-45.0); Lymphocytes % 10.9 % (15.3-44.8); MPV 7.2 fL (7.6-11.3); RBC Red Blood Cell Count 3.69 M/uL (3.86-4.86)
[2019-11-21 06:30] LABS: Albumin 3.2 g/dL (3.4-5.0); Phosphorus 3.6 mg/dL (2.5-4.9)
[2019-11-21] MEDS: INSULIN -REGULAR HUMAN 50 UNIT/0.5 ML ML SQ SCH ×4 (07:30→22:03)
[2019-11-21] MEDS ORDERED: METOPROLOL TARTRATE 5 MG/5 ML INJ IV STA (07:52)
[2019-11-21] MEDS: INSULIN GLARGINE 100 UNITS/ML SQ SCH ×2 (08:31→22:03)
[2019-11-21] MEDS: PANTOPRAZOLE 40MG TABLET PO SCH (08:32)
[2019-11-21] MEDS: BUPROPION HCL XL 150 MG TAB PO SCH (08:32)
[2019-11-21] MEDS: HEPARIN 5000 UNIT/ML 1 ML VIAL SQ SCH ×2 (08:32→22:03)
[2019-11-21] MEDS: SERTRALINE HCL 100 MG TAB PO SCH ×2 (08:32→22:02)
[2019-11-21] MEDS: METOCLOPRAMIDE 10 MG/2mL INJ IV SCH ×4 (08:33→22:03)
[2019-11-21] MEDS ORDERED: ENOXAPARIN 100 MG/ML SYR SQ SCH (09:19)
--- NOTE | 2019-11-21 11:12 | PN ---
Date of Progress Note: 11/21/2019 Patient seen and examined, chart reviewed and case discussed with RN and Dr. Uribe. Patient apparently had new onset of atrial fibrillation. She has no previous history, however, was asymptomatic occurred while she was walking around, heart rate was in the 130s. EKG was done. Patient otherwise is doing well. Medications: List reviewed. Physical Examination: Vital signs: Temperature 97.6, heart rate 153, blood pressure 133/60, respirations 18, O2 saturation 97% on room air. General: Awake, alert, oriented x3. Elderly female, not in any acute distress, obesity. CVS: S1, S2, irregularly irregular. Rapid rate. Peripheral pulses present. Respiratory: Moving air well bilaterally. No wheezing or stridor. Gastrointestinal: Abdomen is soft, nontender, nondistended. Positive bowel sounds. Extremities: No clubbing, cyanosis, or edema. Neurologic: Nonfocal. Laboratory Data: Sodium 140, potassium 4, chloride 106, CO2 of 27, BUN 40, creatinine 3.26, glucose 114, calcium 8.8, phosphorus 3.6. Troponin 0.04. Albumin 3.2. WBC 8.3, H and H 10.8 and 32.7, platelets 167, neutrophils 71%. Urine culture growing out mixed fercho. Assessment And Plan: A 64-year-old female with 1. New onset atrial fibrillation with rapid ventricular response. Patient given Lopressor 5 mg IV x1. We will start on beta blockers and full-dose anticoagulation likely secondary to her end-stage renal disease and multiple electrolyte abnormalities. EKG was done. Cardiology consultation obtained. We will obtain echocardiogram. 2. End-stage renal disease and dialysis has been initiated. Patient has an AV fistula that is not yet matured. We will continue dialysis as scheduled. Appreciate Nephrology input. 3. Hyperkalemia, corrected. 4. Diabetes mellitus type 2, insulin requiring with end-stage renal disease. We will continue sliding scale insulin and monitor blood glucose levels. 5. Anemia of chronic disease and iron deficiency. Monitor H and H, transfuse as needed. 6. Essential hypertension, stable. 7. Obesity, BMI 38. 8. Hypothyroidism, continue home medications. 9. Deep venous thrombosis, prophylaxis. Patient will be switched to full-dose Lovenox renally dosed. PLAN: Pending cardiology evaluation and echocardiogram. Patient can be discharged once dialysis has been set up. ADDENDUM 13:13: Spoke with telephone clerk patient is now back in sinus rhythm. Echocardiogram is normal. Normal ejection fraction. He does not recommend any full-dose anticoagulation. Will start on aspirin. /RENÉ Voice ID: [id number] Report ID: [id number] MTDD
--- NOTE | 2019-11-21 11:21 | EKG ---
Test Date: 2019-11-21 Test Time: 07:42:04 Roll Builder: TAYLOR MEASUREMENT RESULTS: Intervals: Rate: 127 RI: QRSD: 114 QT: 302 QTc: 438 Valdez: P: RI: QRS: -9 T: 16 INTERPRETIVE STATEMENTS: Atrial fibrillation with rapid ventricular response ST depression, consider subendocardial injury or digitalis effect Abnormal ECG Compared to ECG 11/17/2019 18:44:17 Sinus bradycardia no longer present ST (T wave) deviation still present Electronically Signed On 11-21-19 11:20:06 CDT by William Uribe
--- NOTE | 2019-11-21 11:59 | ECHO ---
HEIGHT: 5 ft 6 in WEIGHT: 227 lb 1.6 oz DATE OF STUDY: 11/21/[address]: Catracho Rojo MD 2-DIMENSIONAL: YES M.MODE: YES DOPPLER: YES COLOR FLOW: YES TDS: NO PORTABLE: NO DEFINITY: NO BUBBLE STUDY: NO DIAGNOSIS: ATRIAL FIBRILLATION/ CHEST PAIN CARDIAC HISTORY: CATHERIZATION: NO SURGERY: NO PROSTHETIC VALVE: NO PACEMAKER: NO MEASUREMENTS (cm) DIASTOLIC (NORMALS) SYSTOLIC (NORMALS) IVSd 1.3 (0.6-1.2) LA Diam 3.6 (1.9-4.0) LVEF 51-55% LVIDd 3.7 (3.5-5.7) LVIDs 3.0 (2.0-3.5) %FS 17% LVPWd 1.1 (0.6-1.2) Ao Diam 2.8 (2.0-3.7) 2 DIMENSIONAL ASSESSMENT: RIGHT ATRIUM: NORMAL LEFT ATRIUM: NORMAL RIGHT VENTRICLE: NORMAL LEFT VENTRICLE: NORMAL TRICUSPID VALVE: NORMAL MITRAL VALVE: MITRAL ANNULAR CALCIFICATION PULMONIC VALVE: NORMAL AORTIC VALVE: NORMAL PERICARDIAL EFFUSION: NONE AORTIC ROOT: NORMAL LEFT VENTRICULAR WALL MOTION: NORMAL. DOPPLER/COLOR FLOW: MILD TRICUSPID REGURGITATION. COMMENTS: ATRIAL FIBRILLATION WITH RAPID VENTRICULAR RESPONSE. MITRAL ANNULAR CALCIFICATION. MILD TRICUSPID REGURGITATION. NORMAL LEFT VENTRICULAR SIZE AND FUNCTION. NO THROMBUS. TECHNOLOGIST: ALICE ORTEGA
[2019-11-21] MEDS: DOCUSATE NA 100 MG CAP PO SCH ×2 (12:16→22:02)
[2019-11-21] MEDS ORDERED: METOPROLOL TARTRATE 5 MG/5 ML INJ IV PRN (14:00)
--- NOTE | 2019-11-21 14:08 | P.PN ---
Subjective Date of Service: 11/21/19 Chief Complaint: Abnormal labs Subjective Pt with eosening RFT , started on HD, had afib with rvr ] today was tachycardic this morning , now regular rhythem HD tomorrow pending op dialysis arrangement Physical Examination: General: AAOX3, , obeses neck: supple, no elevated JVD Heart: RRR, normal S1,2 no murmur or rub chest B/l rales Abdomen: soft , NT ext : no edema ESRD on HD Cont HD TTsat , renal dose meds Anemia of chronic disease Cont IV iron no need for epogne DM as per primary team HTN controlled new onset afib cardiology on board started on metoprolol total time spent 35min Physical Examination - Vital Signs Temperature: 98 F Blood Pressure: 103/58 Pulse: 96 Respirations: 20 Pulse Ox (%): 95
[2019-11-21] MEDS: METOPROLOL XL 50 MG TAB PO SCH (17:12)
[2019-11-21 19:24] LABS: HBsAG Nonreactive (Nonreactive)
[2019-11-21] MEDS: ASPIRIN EC 325 MG TABLET PO SCH (22:02)
[2019-11-21] MEDS: ATORVASTATIN 40 MG TAB PO SCH (22:03)
[2019-11-22] MEDS: METOPROLOL XL 50 MG TAB PO SCH ×2 (05:32→18:15)
[2019-11-22 06:25] LABS: Albumin 3.4 g/dL (3.4-5.0); Phosphorus 3.6 mg/dL (2.5-4.9); Potassium 4.2 mmol/L (3.5-5.1)
[2019-11-22] MEDS: METOCLOPRAMIDE 10 MG/2mL INJ IV SCH ×4 (07:30→21:41)
[2019-11-22] MEDS: INSULIN -REGULAR HUMAN 50 UNIT/0.5 ML ML SQ SCH ×4 (07:30→21:41)
[2019-11-22] MEDS: INSULIN GLARGINE 100 UNITS/ML SQ SCH ×2 (10:19→21:41)
[2019-11-22] MEDS: SERTRALINE HCL 100 MG TAB PO SCH ×2 (10:21→21:39)
[2019-11-22] MEDS: PANTOPRAZOLE 40MG TABLET PO SCH (10:21)
[2019-11-22] MEDS: BUPROPION HCL XL 150 MG TAB PO SCH (10:21)
[2019-11-22] MEDS: DOCUSATE NA 100 MG CAP PO SCH ×2 (10:21→21:40)
[2019-11-22] MEDS: HEPARIN 5000 UNIT/ML 1 ML VIAL SQ SCH ×2 (10:25→21:40)
--- NOTE | 2019-11-22 10:35 | PN ---
Date of Progress Note: 11/22/2019 Patient is seen and examined. Chart reviewed and case discussed with RN and Dr. Uribe. Patient no w back in sinus rhythm. No complaint. Going for dialysis again today. Medications: List reviewed. Physical Examination: Vital Signs: Temperature 97.1, heart rate 79, blood pressure 92/52, respirations 18, O2 94% on room air. General: Awake, alert, oriented x3. Elderly female, no acute distress. CV: S1 S2. Regular rate and rhythm. Respiratory: Moving air well bilaterally. No wheezing or stridor. Gastrointestinal: Abdomen is soft, nontender, nondistended. Positive bowel sounds. Extremities: No clubbing, cyanosis, or edema. Neurologic: Nonfocal. Laboratory Data: Hepatitis B antigen is nonreactive. Hepatitis core total antibody is nonreactive. Hepatitis C titers are pending. Sodium 139, potassium 4.2, chloride 104, CO2 of 25, BUN 55, creatin ine 4.14, glucose 108, calcium 8.9, phosphorus 3.6, albumin 3.4. WBC 8.3, H and H 10.8 and 32.7, eli telets 167, neutrophils 79%. Assessment And Plan: 64-year-old female with 1.New onset atrial fibrillation with rapid ventricular response now back in sinus rhythm. Appreciat e Dr. Uribe's input. She is on high-dose beta blockers. Echocardiogram is normal. Continue with aspirin for anticoagulation since she is back in sinus rhythm. 2.End-stage renal disease, now with dialysis being initiated, AV fistula not yet matured. Patient w ill be going again for dialysis today. Appreciate Nephrology input. Pending hepatitis panel, which is required for the chair time. 3.Hyperkalemia, corrected. 4.Diabetes mellitus type 2 insulin requiring with end-stage renal disease. We will continue sliding scale insulin. Monitor blood glucose levels. 5.Anemia of chronic disease and iron deficiency. We will monitor H and H, transfuse as needed. 6.Essential hypertension, stable. 7.Obesity, BMI 38. 8.Hypothyroidism. Continue home medications. 9.Deep venous thrombosis prophylaxis with heparin. PLAN: Discharge once dialysis has been set up currently pending part of the hepatitis panel, specifi sandy hepatitis C. SA/MODL Voice ID: [id number] Report ID: [id number]
[2019-11-22] MEDS: SOD FERRIC GLUC COMPLX/SUCROSE 125 MG in NA CHLORIDE 0.9% 250 ML IV SCH (10:50)
--- NOTE | 2019-11-22 13:43 | P.PN ---
Subjective Date of Service: 11/22/19 Chief Complaint: Abnormal labs Subjective: Improving Subjective Pt with eosening RFT , started on HD, had afib with rvr ] today seen and examined during HD no new complaints HR controlled pending OP dialysis placement Physical Examination: General: AAOX3, , obeses neck: supple, no elevated JVD Heart: RRR, normal S1,2 no murmur or rub chest B/l rales Abdomen: soft , NT ext : no edema ESRD on HD Cont HD TTsat , renal dose meds Anemia of chronic disease Cont IV iron no need for epogne DM as per primary team HTN controlled new onset afib cardiology on board started on metoprolol total time spent 35min Physical Examination - Vital Signs Temperature: 97.6 F Blood Pressure: 119/66 Pulse: 77 Respirations: 18 Pulse Ox (%): 96
--- NOTE | 2019-11-22 20:12 | CON ---
Patient was admitted initially on 11/17/2019. Reason For Admission: She was sent by Dr. Flores because of elevated potassium, mild shortness of breath, and generalized weakness. She was admitted through the emergency room for the above-mentione d problem. She had denied any chest pain, nausea, vomiting, diaphoresis, PND, orthopnea, pedal edema . She denied any palpitation or syncope. Denied any fever or chills. However, on 11/21/2019, which is the day the patient was seen, she went into atrial fibrillation with a rate of 82, still again wi thout any symptoms. She had gotten hemodialysis on 11/20/2019. Past Medical History: End-stage renal disease, on hemodialysis; diabetes; hypertension; hypothyroidi sm. Allergies: SHE IS ALLERGIC TO CODEINE. Review of Systems: Negative. Social History: Negative. Family History: Noncontributory. Medications At Home: Aspirin, Norvasc, Lipitor, bupropion, Coreg, insulin, Zoloft, allopurinol, hydr ochlorothiazide, and lisinopril. Physical Examination: General: When I saw her, she had a blood pressure of 100/54. She was in AFib at 82. HEENT: Negative. Neck: Supple with no bruit. Chest: Clear. Cardiac: Atrial fibrillation. Abdomen: Benign. Extremities: No clubbing, cyanosis, or edema. Diagnostic Data: She had a creatinine of 3.26. Her hemoglobin was 10.8. Her potassium was 4.0. He r glucose was 195. She had a negative troponin. EKG revealed atrial fibrillation. Chest x-ray was negative. Echocardiogram showed an ejection fraction of 51% to 55% with normal left atrial size, lilly ral annular calcification, and no thrombus. Impression And Plan: Atrial fibrillation, rate controlled, new onset in a patient who has multiple p ast medical problems including diabetes, hypertension, dyslipidemia, end-stage renal disease and hypo thyroidism. She has a very high CHADS score. Patient is on heparin subcu. I recommended starting m etoprolol 50 mg 1 p.o. b.i.d. We will see how she does with that. If that does not work, we may hav e to use different pharmacological intervention or even do a direct current cardioversion. Ms. Gallego is asymptomatic with her atrial fibrillation which means that she may be having this inter mittently. I think when she goes home, she should be on Eliquis 5 mg b.i.d. I will discuss the case further with her admitting physician as well as Dr. Flores. We will continue to follow her. Her other problems including diabetes, hypertension, dyslipidemia, hypothyroidism, and end-stage renal di sease are stable. When the patient goes home, I will be happy to see her in the office. It would no t be unreasonable to do a stress test on her down the road. ROHIT/RENÉ Voice ID: [id number] Report ID: [id number]
[2019-11-22] MEDS: ASPIRIN EC 325 MG TABLET PO SCH (21:40)
[2019-11-22] MEDS: ATORVASTATIN 40 MG TAB PO SCH (21:40)
[2019-11-22 22:22] LABS: Vitamin D 1,25-Dihydroxy Total 21 pg/mL (18-72); Vitamin D,1,25-OH2, D2 <8 pg/mL
[2019-11-23] MEDS: METOPROLOL XL 50 MG TAB PO SCH ×2 (05:32→17:32)
--- NOTE | 2019-11-23 06:04 | PN ---
Date of Progress Note: 11/22/2019 Subjective: Ms. Gallego has end-stage renal disease, diabetes, hypertension, dyslipidemia, and hypoth yroidism. I saw her because of atrial fibrillation that is asymptomatic. She is in sinus rhythm now on beta-blockers. I would continue her beta-blockers as is. I think considering she has a very hig h CHADS score and she is asymptomatic with her atrial fibrillation, she may be having more atrial fib rillation than we know and I suggest that we put her on Eliquis upon discharge. We will continue to follow her. I will discuss the case further with . I think it would be reasonable to have her do an outpatient stress test and follow up in the next 2-4 weeks. FERNANDO Voice ID: [id number] Report ID: [id number]
[2019-11-23 06:24] LABS: Albumin 3.3 g/dL (3.4-5.0); Phosphorus 3.1 mg/dL (2.5-4.9); Potassium 4.1 mmol/L (3.5-5.1)
[2019-11-23] MEDS: INSULIN -REGULAR HUMAN 50 UNIT/0.5 ML ML SQ SCH ×4 (07:30→21:56)
[2019-11-23] MEDS: INSULIN GLARGINE 100 UNITS/ML SQ SCH ×2 (08:18→21:56)
[2019-11-23] MEDS: SERTRALINE HCL 100 MG TAB PO SCH ×2 (08:19→21:55)
[2019-11-23] MEDS: DOCUSATE NA 100 MG CAP PO SCH ×2 (08:19→21:54)
[2019-11-23] MEDS: PANTOPRAZOLE 40MG TABLET PO SCH (08:20)
[2019-11-23] MEDS: HEPARIN 5000 UNIT/ML 1 ML VIAL SQ SCH (08:22)
[2019-11-23] MEDS: METOCLOPRAMIDE 10 MG/2mL INJ IV SCH ×4 (08:26→21:00)
[2019-11-23] MEDS: BUPROPION HCL XL 150 MG TAB PO SCH (08:26)
--- NOTE | 2019-11-23 13:18 | PN ---
Date of Progress Note: 11/23/2019 Ms. Gallego is a patient with end-stage renal disease, diabetes, hypertension, dyslipidemia, and hypot hyroidism. She had atrial fibrillation that was asymptomatic. She went into sinus rhythm on beta-bl ockers. She is asymptomatic, sinus rhythm today. No complaint. Her chest is clear. Cardiac exam i s normal. Echocardiogram was normal. I am comfortable with signing off Ms. Gallego, but I would sugg est when she goes home, she remains on beta-susan and I think she should be on Eliquis. She may be having more atrial fibrillation that we know. She is asymptomatic with it, but I think she has a hi gh risk profile for stroke from atrial fibrillation and I think Eliquis should be added upon discharg e. I will discuss the case further with Dr. Flores. ROHIT/RENÉ Voice ID: [id number] Report ID: [id number]
--- NOTE | 2019-11-23 13:37 | P.PN ---
Subjective Date of Service: 11/23/19 Chief Complaint: Abnormal labs Subjective: New changes Subjective Pt with eosening RFT , started on HD, had afib with rvr ] today no new complaints HR controlled , started on Eliquis pending OP dialysis placement Next HD on Sunday Physical Examination: General: AAOX3, , obeses neck: supple, no elevated JVD Heart: RRR, normal S1,2 no murmur or rub chest B/l rales Abdomen: soft , NT ext : no edema ESRD on HD Cont HD TTsat , renal dose meds Anemia of chronic disease Cont IV iron no need for epogne DM as per primary team HTN controlled new onset afib cardiology on board started on metoprolol and Eliquis total time spent 35min Physical Examination - Vital Signs Temperature: 97.4 F Blood Pressure: 132/60 Pulse: 77 Respirations: 18 Pulse Ox (%): 95
--- NOTE | 2019-11-23 13:39 | PN ---
Date of Progress Note: 11/23/2019 Subjective: Patient seen and examined. Chart reviewed and case discussed with RN. Patient had dial ysis yesterday, did well. No acute events overnight. Medications: List reviewed. Physical Examination: Vital Signs: Temperature 96.7, heart rate 74, blood pressure 129/65, respirations 14, O2 97% on room air. General: Awake, alert, oriented x3. No acute distress. Obese female. CV: S1, S2. Regular rate and rhythm. Peripheral pulses present. Respiratory: Moving air well bilaterally. No wheezing or stridor. Gastrointestinal: Abdomen is soft, nontender, nondistended. Positive bowel sounds. No guarding or rigidity. Extremities: No clubbing, cyanosis, or edema. Neurologic: Nonfocal. Laboratory Data: Sodium 138, potassium 4.1, chloride 104, CO2 of 27, BUN 37, creatinine 2.81, glucos e 92, calcium 8.8, phosphorus 3.1, albumin 3.3. Assessment: 64-year-old female with; 1.New onset atrial fibrillation with RVR, now back in sinus rhythm. Cardiology now recommending Julee marlon upon discharge. Patient is currently in sinus rhythm, on beta-blockers. 2.End-stage renal disease, now on hemodialysis. We will continue as scheduled. Patient tolerating dialysis well. Awaiting results from hepatitis panel, hepatitis C still pending. Once chair time is set up, can be discharged. Appreciate Nephrology input. 3.Hyperkalemia, corrected. 4.Diabetes mellitus type 2, insulin requiring with end-stage renal disease. We will continue slidin g scale insulin. We will monitor blood glucose levels. 5.Anemia of chronic disease and iron deficiency. Monitor H and H. We will transfuse as needed. 6.Essential hypertension, stable. 7.Obesity, BMI 38. 8.Hypothyroidism. Continue Synthroid. 9.Deep venous thrombosis prophylaxis with heparin, renally dosed. Plan: Discharge once dialysis chair time has been set up. /RENÉ Voice ID: [id number] Report ID: [id number]
[2019-11-23] MEDS: ATORVASTATIN 40 MG TAB PO SCH (21:54)
[2019-11-23] MEDS: APIXABAN 5 MG TABLET PO SCH (21:55)
[2019-11-23] MEDS: ASPIRIN EC 325 MG TABLET PO SCH (21:55)
[2019-11-24] MEDS: ACETAMINOPHEN 500 MG TAB PO PRN (02:47)
[2019-11-24 04:35] LABS: Albumin, (SPE) 3.4 g/dL (3.8-4.8); Alpha-1-Globulins 0.4 g/dL (0.2-0.3); Alpha-2-Globulins 0.7 g/dL (0.5-0.9); Gamma Globulins 0.8 g/dL (0.8-1.7); INTERPRETATION REPORT
[2019-11-24 04:50] LABS: Absolute Lymphocytes (CBC) 1.2 K/uL (0.7-4.9); Basophils % 2.1 % (0-1.3); Hematocrit 30.4 % (36.0-45.0); Lymphocytes % 13.6 % (15.3-44.8); MPV 7.3 fL (7.6-11.3)
[2019-11-24] MEDS: METOPROLOL XL 50 MG TAB PO SCH ×2 (05:59→17:06)
[2019-11-24] MEDS: INSULIN -REGULAR HUMAN 50 UNIT/0.5 ML ML SQ SCH ×4 (07:30→21:00)
[2019-11-24] MEDS: BUPROPION HCL XL 150 MG TAB PO SCH (08:37)
[2019-11-24] MEDS: PANTOPRAZOLE 40MG TABLET PO SCH (08:37)
[2019-11-24] MEDS: DOCUSATE NA 100 MG CAP PO SCH ×2 (08:38→21:17)
[2019-11-24] MEDS: APIXABAN 5 MG TABLET PO SCH ×2 (08:38→21:17)
[2019-11-24] MEDS: SERTRALINE HCL 100 MG TAB PO SCH ×2 (08:38→21:17)
[2019-11-24] MEDS: METOCLOPRAMIDE 10 MG/2mL INJ IV SCH ×4 (08:39→21:17)
[2019-11-24] MEDS: INSULIN GLARGINE 100 UNITS/ML SQ SCH ×2 (08:39→21:18)
--- NOTE | 2019-11-24 12:16 | P.PN ---
Subjective Date of Service: 11/24/19 Chief Complaint: Abnormal labs Subjective: No new changes, Tolerating diet, Doing well (Patient is doing well today. Denies any complaints.) <Simon Bolaños Last Filed: 11/24/19 12:17> Date of Service: 11/24/19 Subjective: Other (The patient seen examined with nurse practitioner.) <ShannensukiJose aleman - Last Filed: 11/24/19 16:38> Review of Systems Unremarkable <Simon Bolaños - Last Filed: 11/24/19 12:17> Physical Examination - Vital Signs Temperature: 98.1 F Blood Pressure: 116/64 Pulse: 64 Respirations: 17 Pulse Ox (%): 95 - Physical Exam General: Alert, In no apparent distress, Oriented x3 HEENT: Atraumatic, Normocephalic Neck: Supple Respiratory: Clear to auscultation bilaterally, Normal air movement Cardiovascular: No edema Capillary refill: <2 Seconds Gastrointestinal: Normal bowel sounds Musculoskeletal: No clubbing Integumentary: No rashes Neurological: Normal gait, Normal speech <Simon Bolaños Last Filed: 11/24/19 12:17> - Physical Exam Cardiovascular: Normal pulses, Regular rate/rhythm Neurological: Normal affect - Studies Medications List Reviewed: Yes <Jose Flores Last Filed: 11/24/19 16:38> Assessment & Plan Discharge Plan: Home Plan to discharge in: 24 Hours Physician Review Additional Text: Assessment New onset atrial fibrillation, now back in sinus rhythm End-stage renal disease now on hemodialysis Diabetes mellitus type 2 Anemia of chronic disease Essential hypertension Obesity Hypothyroidism Plan New onset atrial fibrillation, now back in sinus rhythm- cardiology recommends patient be placed on Eliquis upon discharge. Patient is currently on beta- blockers and in sinus rhythm. End-stage renal disease now on hemodialysis- will continue dialysis as scheduled, patient tolerating well. Hepatitis panel is back, attempting to arrange for dialysis chair. Awaiting to hear back from jil lombardo. Patient can be discharged once hemodialysis chair is arranged. Diabetes mellitus type 2- will continue with insulin therapy the patient takes at home. Will continue to monitor a.c. HS Accu-Cheks and provide sliding scale in addition to Lantus during patient's hospitalization. Anemia of chronic disease- will continue to monitor patient's H&H. Will provide transfusion as necessary. The patient is to continue oral iron supplement at home. Essential hypertension- will continue patient's home medications. Obesity- provide counseling on diet and exercise. Hypothyroidism- will continue patient's home medications. Time Spent Managing Pts Care (In Minutes): 55 <Simon Bolaños - Last Filed: 11/24/19 12:17> Discharge Plan: Home Plan to discharge in: 24 Hours Physician Review Additional Text: Patient seen and examined with nurse practitioner. Agree with exam, evaluation and plan of care. Patient currently stable this time. Awaiting approval by [email or web address]. Patient is unfunded and will require Medicaid pending to initiate dialysis. Will discuss further with nephrology. Anticipate discharge likely within the next 24-48 hr. <Jose Flores - Last Filed: 11/24/19 16:38>
[2019-11-24] MEDS: ASPIRIN EC 325 MG TABLET PO SCH (21:00)
[2019-11-24] MEDS: ATORVASTATIN 40 MG TAB PO SCH (21:17)
[2019-11-25 01:49] VITALS: O2SAT 96
--- NOTE | 2019-11-25 02:24 | PN ---
Date of Progress Note: 11/24/2019 Chief Complaint: Patient has multiple medical problems. She was started on dialysis for diabetes me llitus. She is undergoing dialysis on Sunday, , and Sunday. She has history of hypertension and diabetes and new onset of atrial fibrillation. Cardiology treate d patient will beta-susan and Eliquis. Review of Systems: Denies new complaints. Physical Examination: Lungs: Diminished breath sounds at bases. Heart: S1, S2. Abdomen: Soft, benign. Extremities: No edema. Laboratory Data: Blood work: Hemoglobin 9.9, WBC 8.5, platelet count is 150,000. Sodium 140, potas sium 4.0, chloride 105, CO2 of 27, BUN 48, creatinine 2.93, calcium 9.2. Impression And Plan: 1.End-stage renal disease. Next dialysis tomorrow. 2.Hypertension. Continue blood pressure medication. 3.Anemia. Hemoglobin level is fluctuating. Plan is to re-evaluate hemoglobin tomorrow and adjust m edication for anemia due to chronic kidney disease. 4.Diabetes mellitus. Continue insulin. Monitor hemoglobin A1c. EB/MODL Voice ID: [id number] Report ID: [id number]
[2019-11-25] MEDS: METOPROLOL XL 50 MG TAB PO SCH ×2 (05:31→17:06)
[2019-11-25] MEDS: INSULIN -REGULAR HUMAN 50 UNIT/0.5 ML ML SQ SCH ×3 (07:30→16:14)
[2019-11-25] MEDS: BUPROPION HCL XL 150 MG TAB PO SCH (09:11)
[2019-11-25] MEDS: PANTOPRAZOLE 40MG TABLET PO SCH (09:11)
[2019-11-25] MEDS: DOCUSATE NA 100 MG CAP PO SCH (09:11)
[2019-11-25] MEDS: METOCLOPRAMIDE 10 MG/2mL INJ IV SCH ×3 (09:12→16:15)
[2019-11-25] MEDS: SERTRALINE HCL 100 MG TAB PO SCH (09:12)
[2019-11-25] MEDS: APIXABAN 5 MG TABLET PO SCH (09:12)
[2019-11-25] MEDS: INSULIN GLARGINE 100 UNITS/ML SQ SCH (09:13)
[2019-11-25] MEDS ORDERED: LACTULOSE 20 GM/30 ML UCUP PO ONE (09:20)
--- NOTE | 2019-11-25 09:53 | P.PN ---
Subjective Date of Service: 11/25/19 Chief Complaint: Abnormal labs Subjective Pt with worsening RFT , started on HD, had afib with rvr ] Today constipated outpatient dialysis arrangement made can be discharged from nephrology point of view HD tomorrow as an OP Physical Examination: General: AAOX3, , obeses neck: supple, no elevated JVD Heart: RRR, normal S1,2 no murmur or rub chest B/l rales Abdomen: soft , NT ext : no edema ESRD on HD Cont HD TTsat , renal dose meds Anemia of chronic disease Cont IV iron no need for epogene DM as per primary team HTN controlled new onset afib cardiology on board started on metoprolol and Eliquis total time spent 35min Physical Examination - Vital Signs Temperature: 97.1 F Blood Pressure: 128/60 Pulse: 63 Respirations: 16 Pulse Ox (%): 96 - Studies Medications List Reviewed: Yes
[2019-11-25] MEDS: SOD FERRIC GLUC COMPLX/SUCROSE 125 MG in NA CHLORIDE 0.9% 250 ML IV SCH (10:46)
--- NOTE | 2019-11-25 13:26 | P.DS ---
Admission Date: 11/17/19 Discharge Date: 11/25/19 Primary Care Provider: unknown; Nephrology-Dr. Flores Disposition: ROUTINE DISCHARGE Discharge Condition: GOOD Reason for Admission: Abnormal labs Consultations: Nephrology-Dr. Flores Cardiology-Dr. Uribe Surgery-Dr. Longoria Procedures: ECHO: Ejection fraction 51% LEFT VENTRICULAR WALL MOTION: NORMAL. DOPPLER/COLOR FLOW: MILD TRICUSPID REGURGITATION. COMMENTS: ATRIAL FIBRILLATION WITH RAPID VENTRICULAR RESPONSE. MITRAL ANNULAR CALCIFICATION. MILD TRICUSPID REGURGITATION. NORMAL LEFT VENTRICULAR SIZE AND FUNCTION. NO THROMBUS. Surgery: Date of Procedure: 11/18/2019 Surgeon: Basim Longoria MD Preoperative Diagnoses: Acute renal failure and hyperkalemia. Postoperative Diagnoses: Acute renal failure and hyperkalemia. Procedure: Placement of right IJ Tesio catheter, interpretation of intraoperative fluoroscopy. Estimated Blood Loss: Minimal. Specimens: None. Findings: Normal anatomy. Medical Problem List: New onset atrial fibrillation, now back in sinus rhythm and with chronic anti coagulation therapy Hyperkalemia and worsening chronic renal disease now End-stage renal disease on hemodialysis Diabetes mellitus type 2 Anemia of chronic disease Essential hypertension Obesity GERD Depression with anxiety Brief History of Present Illness: 64-year-old female with history of diabetes, hypertension, hyperlipidemia, chronic renal disease. Patient presented with abnormal lab indicating worsening renal function. Patient also had hyperkalemia. Patient was sent to the ER for further evaluation and treatment. Hospital Course: Patient presented with worsening renal function and hyperkalemia. Patient previously with chronic renal disease. Nephrology was consulted to further evaluate. During the course of her stay patient required hemodialysis. Nephrology recommended to continue hemodialysis chronically. Surgery was consulted to place dialysis catheter. Patient now with end-stage renal disease on hemodialysis. Arrangements for hemodialysis at the dialysis center has been arranged. She will continue with hemodialysis every Sunday, and Sunday. At discharge she is without significant chest pain or shortness of breath. Recommend follow up with nephrology in 1-2 weeks to follow up this hospitalization. During the course of her stay patient also with underlying new onset atrial fibrillation. She was seen by Cardiology. Medications have been adjusted. She now takes Eliquis and is on beta-susan therapy. At discharge she is in normal sinus rhythm. At discharge she will continue with Eliquis 5 mg 1 pill twice daily and metoprolol 50 mg 1 pill twice daily. Recommend follow up with cardiology in 1-2 weeks to follow up this hospitalization. Patient with underlying hypertension. Medications have been adjusted. During the course of her stay. Blood pressure has remained stable only on metoprolol. At discharge Norvasc, carvedilol, hydrochlorothiazide and lisinopril have been discontinued. Patient will continue with metoprolol 50 mg 1 pill twice daily and aspirin 81 mg daily.. Recommend to maintain blood pressure less 150/80. Further adjustment can be done by her PCP, cardiology or nephrology. Patient with underlying diabetes type 2. This has remained stable. At discharge she will continue with Lantus 45 units subcu twice daily. Recommend to maintain blood sugar less than 140 fasting and less than 200 after meals. Further adjustment can be done by her PCP. Patient with hyperlipidemia. At discharge she will continue with Lipitor 40 mg daily. Patient with depression with anxiety. At discharge she will continue with Wellbutrin 150 mg daily and Zoloft 100 mg 1 pill twice daily. Patient with GERD. At discharge she will continue with Protonix 40 mg daily. Vital Signs/Physical Exam: Temp Pulse Resp BP Pulse Ox 97.1 F 64 16 128/70 97 11/25/19 09:53 11/25/19 12:00 11/25/19 12:00 11/25/19 12:00 11/25/19 12:00 General: Alert, In no apparent distress, Oriented x3, Cooperative HEENT: Atraumatic Neck: Supple Respiratory: Clear to auscultation bilaterally, Normal air movement Cardiovascular: Normal pulses, Regular rate/rhythm Gastrointestinal: Normal bowel sounds, Soft and benign, Non-distended, No masses, No rebound, No guarding Musculoskeletal: No erythema, No tenderness, No warmth Integumentary: No tenderness/swelling, No erythema, No warmth, No cyanosis Neurological: Normal speech, Normal strength at 5/5 x4 extr, Normal tone, Normal affect Laboratory Data at Discharge: WBC 8.5 K/uL (4.3-10.9) 11/24/19 04:16 Hgb 9.9 g/dL (12.0-15.0) L 11/24/19 04:16 Hct 30.4 % (36.0-45.0) L 11/24/19 04:16 Plt Count 150 K/uL (152-406) L 11/24/19 04:16 PT 13.2 SECONDS (9.5-12.5) H 11/17/19 19:37 INR 1.12 11/17/19 19:37 APTT 33.8 SECONDS (24.3-36.9) 11/17/19 19:37 Sodium 140 mmol/L (136-145) 11/24/19 04:19 Potassium 4.0 mmol/L (3.5-5.1) 11/24/19 04:19 BUN 48 mg/dL (7-18) H 11/24/19 04:19 Creatinine 2.93 mg/dL (0.55-1.3) H 11/24/19 04:19 Glucose 77 mg/dL (74-106) 11/24/19 04:19 Uric Acid 4.1 mg/dL (2.6-6.0) 11/19/19 04:00 Phosphorus 3.1 mg/dL (2.5-4.9) 11/23/19 05:31 Total Bilirubin 0.4 mg/dL (0.2-1.0) 11/19/19 04:00 AST 15 U/L (15-37) 11/19/19 04:00 ALT 16 U/L (12-78) 11/19/19 04:00 Alkaline Phosphatase 110 U/L (45-117) 11/19/19 04:00 Troponin I 0.04 ng/mL (0.0-0.045) 11/21/19 08:12 Home Medications: Aspirin [Aspirin EC 325 MG] 325 mg PO BEDTIME 11/17/19 Atorvastatin Calcium [Lipitor] 40 mg PO DAILY 11/17/19 Bupropion *Xl* [Wellbutrin XL*] 150 mg PO DAILY 11/17/19 Cholecalciferol (Vitamin D3) [Vitamin D3] 50 mcg PO DAILY 11/17/19 Insulin Glargine,Hum.rec.anlog [Lantus Solostar] 45 units SQ BID 11/17/19 Insulin Lispro [Humalog Kwikpen U-100] 30 units SQ TIDWM 11/17/19 Loperamide [Imodium*] 2 mg PO QIDP PRN 11/17/19 Sertraline [Zoloft*] 100 mg PO BID 11/17/19 allopurinoL [Allopurinol] 100 mg PO DAILY 11/17/19 Metoprolol Succinate [Toprol Xl*] 50 mg PO BID 6AM 6PM #60 tab 11/25/19 Pantoprazole [Protonix Tab*] 40 mg PO ACB #30 tab 11/25/19 New Medications: Pantoprazole [Protonix Tab*] 40 mg PO ACB #30 tab Metoprolol Succinate [Toprol Xl*] 50 mg PO BID 6AM 6PM #60 tab Patient Discharge Instructions: 1. Recommend follow up with PCP in 1 week to follow up this hospitalization. 2. Patient presented with worsening renal function and hyperkalemia. Patient previously with chronic renal disease. Nephrology was consulted to further evaluate. During the course of her stay patient required hemodialysis. Nephrology recommended to continue hemodialysis chronically. Surgery was consulted to place dialysis catheter. Patient now with end-stage renal disease on hemodialysis. Arrangements for hemodialysis at the dialysis center has been arranged. She will continue with hemodialysis every Sunday, and Sunday. At discharge she is without significant chest pain or shortness of breath. Recommend follow up with nephrology in 1-2 weeks to follow up this hospitalization. 3. During the course of her stay patient also with underlying new onset atrial fibrillation. She was seen by Cardiology. Medications have been adjusted. She now takes Eliquis and is on beta-susan therapy. At discharge she is in normal sinus rhythm. At discharge she will continue with Eliquis 5 mg 1 pill twice daily and metoprolol 50 mg 1 pill twice daily. Recommend follow up with cardiology in 1-2 weeks to follow up this hospitalization. 4. Patient with underlying hypertension. Medications have been adjusted. During the course of her stay. Blood pressure has remained stable only on metoprolol. At discharge Norvasc, carvedilol, hydrochlor othiazide and lisinopril have been discontinued. Patient will continue with metoprolol 50 mg 1 pill twice daily and aspirin 81 mg daily.. Recommend to maintain blood pressure less 150/80. Further adjustment can be done by her PCP, cardiology or nephrology. 5. Patient with underlying diabetes type 2. This has remained stable. At discharge she will continue with Lantus 45 units subcu twice daily. Recommend to maintain blood sugar less than 140 fasting and less than 200 after meals. Further adjustment can be done by her PCP. 6. Patient with hyperlipidemia. At discharge she will continue with Lipitor 40 mg daily. 7. Patient with depression with anxiety. At discharge she will continue with Wellbutrin 150 mg daily and Zoloft 100 mg 1 pill twice daily. 8. Patient with GERD. At discharge she will continue with Protonix 40 mg daily. Diet: ADA Activity: Ad is[place] Time spent managing pt's care (in minutes): 55
[2019-11-25 16:28] VITALS: BP 124/59; TEMP 98.2
[2019-11-27 18:55] LABS: Hepatitis C Virus RNA (PCR)log <1.18 log IU/mL
== END 2019-11-25 17:27 | disposition home or self-care (01) | DRG 640 ==
LOC: ER 18:13 → ERHOLD 22:43 → 2ND 23:28
PROVIDERS: ADMIT Internal Medicine; ATTEND Family Medicine
PROC: 02HV33Z Insertion of Infusion Device into Superior Vena Cava, Percutaneous Approach (ICD-10-PCS; 2019-11-18)
PROC: 5A1D70Z Performance of Urinary Filtration, Intermittent, Less than 6 Hours Per Day (ICD-10-PCS; 2019-11-18)
PROC: 0JH60XZ Insertion of Tunneled Vascular Access Device into Chest Subcutaneous Tissue and Fascia, Open Approach (ICD-10-PCS; principal; 2019-11-18 09:00)
DX: E87.5 Hyperkalemia (principal); N18.6 End stage renal disease; I12.0 Hypertensive chronic kidney disease with stage 5 chronic kidney disease or end stage renal disease; N17.9 Acute kidney failure, unspecified; E11.22 Type 2 diabetes mellitus with diabetic chronic kidney disease; E87.2 Acidosis; D63.1 Anemia in chronic kidney disease; E78.5 Hyperlipidemia, unspecified; K21.9 Gastro-esophageal reflux disease without esophagitis; F41.8 Other specified anxiety disorders; I48.91 Unspecified atrial fibrillation; E03.9 Hypothyroidism, unspecified; D50.9 Iron deficiency anemia, unspecified; E66.9 Obesity, unspecified; E11.40 Type 2 diabetes mellitus with diabetic neuropathy, unspecified; Z88.5 Allergy status to narcotic agent; Z91.048 Other nonmedicinal substance allergy status; Z79.4 Long term (current) use of insulin; Z79.52 Long term (current) use of systemic steroids; Z79.899 Other long term (current) drug therapy; Z68.38 Body mass index [BMI] 38.0-38.9, adult; Z79.82 Long term (current) use of aspirin
CPT/HCPCS: 36415; 71045; 76000; 80048; 80053; 80069; 81003; 81015; 82607; 82652; 82728; 82746; 82947; 83540; 83880; 83970; 84100; 84132; 84165; 84443; 84466; 84484; 84550; 85025; 85044; 85610; 85730; 86317; 86704; 86706; 87086; 87088; 87340; 87522; 90935; 93005; 93306; 94760; 96361; 96374; 96375; 99284; C1752; J0690; J1644; J1650; J1815; J1940; J2250; J2405; J2704; J2765; J2916; J3010; J7030

== ENCOUNTER 2020-06-18 08:17 | Emergency (ER) | payer OTHER ==
--- OUTSIDE RECORDS SUMMARY | 2020-06-18 08:26 | XMS REPORT | Continuity of Care Document ---
:1955 Author Organization [facility] t Address [address] [place] [address] Dr. Garibay[address] [place] [address] Care Team Providers Name Role Phone Anders Johnson MD Primary Care Physician Randa BURROUGHS, T. Attending Clinician Iain Leahy MD Attending Clinician Walter Ashley MD. Attending Clinician Licha DOWD Attending Clinician Collins Chavira MD Attending Clinician Fermin BO Attending Clinician Sly BURROUGHS Attending Clinician ARMOND Admitting Clinician Unavailable Collins Chavira MD Admitting Clinician RANDA Admitting Clinician Unavailable Payers Payer Name Policy Type Policy Effective Date Expiration Date Sour ce Number MEDICAREMEDICARE PART [id number] 2020 Keo basurtoterry Guy AND 00:00:00 Jain YtpevqxfSZ090/07/2019[place] [facility] Problems Condition Condition Condition Status Onset Resolution Last Treating Co mments Source Name Details Category Date Date Treatment Clinician Date ESRD (end ESRD (end Disease Active 2019-07 Oscar ston stage stage 1-05 [facility] renal renal 00:00: st disease) disease) 00 on on dialysis dialysis Allergies, Adverse Reactions, Alerts Allergy Allergy Status Severity Reaction(s) Onset Inactive Treating Comm ents Source Name Type Date Date Clinician Adhesive Propensi Active Hives, [place] Tape-Kendra ty to Itching, 5-12 Method i icones adverse Rash 00:00: st reaction 00 s to drug Codeine Propensi Active Hallucinatio Other [place] ty to ns 5-12 reaction( Methodi adverse 00:00: s): st reaction 00 Anaphylax s to is drug Family History Family Member Diagnosis Comments Start Date Stop Date Source Natural father Heart disease [place] Jain Natural father [facility] Natural father Thrombophlebitis [place] Natural mother Diabetes [facility] thodist Natural mother Hyperlipidemia [place] Natural mother Hypertension [place] Jain Natural mother Kidney disease [place] Social History Social Habit Start Date Stop Date Quantity Comments Source History of tobacco [facility] use Sex Assigned At [facility] ethodi Cigarettes smoked 2020-05-14 2020-05-14 [facility] current (pack per 00:00:00 00:00:00 day) - Reported Cigarette 2020-05-14 2020-05-14 [facility] ist pack-years 00:00:00 00:00:00 Tobacco use and 2020-05-14 2020-05-14 Never used [facility] ethodist exposure 00:00:00 00:00:00 Alcohol intake 2020-05-14 2020-05-14 Current drinker [place] Jain 00:00:00 00:00:00 of alcohol (finding) Alcohol Comment 2020-03-23 2020-03-23 [facility] Smoking Status Start Date Stop Date Source Former smoker 2020-05-14 00:00:00 2020-05-14 00:00:00 [facility] Medications Ordered Filled Start Stop Current Ordering Indication Dosage Frequency Signature Comments Components Source Medication Medication Date Date Medication? Clinician (SIG) Name Name buPROPion 2019-07 Yes 150mg Q.5D Take 150 Oscar ston SR 1-06 mg by Methodi (WELLBUTRIN 17:17: mouth 2 st SR) 150 MG 32 (two) 12 hr times a tablet day. aspirin 325 2019-07 Yes 325mg QD Take 325 [place] MG tablet 1-06 mg by Methodi 17:17: mouth st 32 every evening. cholecalcif 2019-07 Yes 2000U QD Take 2,000 Davila daryl, 1-06 Units by Methodi vitamin D3, 17:17: mouth st 50 mcg 32 daily. (2,000 unit) capsule capsule loratadine 2019-07 Yes 10mg QD Take 10 mg [place] (CLARITIN) 1-06 by mouth Metho di 10 mg 17:17: daily. st tablet 32 multivit-mi 2019-07 Yes Take by Oscar godinez n/iron/foli 1-06 mouth. Method i c/lutein 17:17: st (CENTRUM 32 SILVER WOMEN ORAL) docusate 2019-07 Yes 100mg Q.5D Take 100 [place] sodium 1-06 mg by Methodi (Stool 17:17: mouth 2 st Softener) 32 (two) 100 MG times a capsule day. atorvastati 2019-07 Yes 20mg QD Take 20 mg Davila n (LIPITOR) 1-06 by mouth Meth deonte 20 mg 17:17: daily. st tablet 32 Default OP ins folic 2019-07 Yes 1{tbl} QD Take 1 Davila acid/vit B 1-06 tablet by Meth deonte complex and 17:17: mouth st C 32 daily. (DIALYVITE ORAL) ciprofloxac 2019-07 Yes 500mg QD Take 500 [place] in HCl 1-06 mg by Methodi (CIPRO 17:17: mouth st ORAL) 32 daily. For 2 more days insulin 2019-07- No 30U [id number] Inject 30 Davila lispro 07-14 [id number] Units Metho di (HUMALOG 15:24: 00:[address] U-100 59 :00 skin 3 INSULIN (three) SUBQ) times a day before meals. insulin 2019-07 Yes 30U Q.[id number] Inject 30 Davila lispro 07-14 [id number] Units Method i (HumaLOG 00:00: 3D under the st U-100 00 skin 3 Insulin) (three) 100 unit/mL times a injection day before meals. HYDROcodone 2019-07 2020- No acute pain 1{tbl} Q8H Take 1 Davila -acetaminop 07-14 tablet by Me elías tabares ([place]) 00:00: 23:[address] 5-325 mg 00 :00 every 8 per tablet (eight) hours as needed for moderate pain for up to 3 days .acute pain. Max Daily Amount: 3 tablets HYDROcodone 2020-0 2020- No acute pain 1{tbl} Q6H Take 1 Davila -acetaminop 9-17 09-24 tablet by Me elías tabares (NORCO) 00:00: 23:[address] 5-325 mg 00 :00 every 6 per tablet (six) hours as needed for moderate pain for up to 30 doses .acute pain. Max Daily Amount: 4 tablets Lantus 2020-0 Yes 45U Q.5D Inject 45 Veena pedro Solostar 9-08 Units Methodi U-100 00:00: under the st Insulin 100 00 skin 2 unit/mL (two) injection times a (pen) day. metoprolol 2020-0 Yes 50mg Q.5D Take 50 mg [place] succinate 9-02 by mouth 2 Meth deonte XL 00:00: (two) st (TOPROL-XL) 00 times a 25 mg 24 hr day. tablet pantoprazol 2020-0 Yes 40mg QD Take 40 mg Davila e 8-12 by mouth Methodi (PROTONIX) 00:00: daily. st 40 MG EC 00 tablet levothyroxi 2020-0 Yes 150ug QD Take 150 [place] ne 8-12 mcg by Methodi (SYNTHROID) 00:00: mouth st 150 mcg 00 daily. tablet amLODIPine 2020-0 Yes 10mg QD Take 10 mg [place] (NORVASC) 8-03 by mouth Method i 10 mg 00:00: daily. st tablet 00 lisinopriL 2020-0 Yes 5mg QD Take 5 mg [place] (PRINIVIL) 7-15 by mouth Metho di 5 mg tablet 00:00: daily. st 00 furosemide 2020-0 Yes 160mg QD Take 160 [place] (LASIX) 80 7-01 mg by Methodi mg tablet 00:00: mouth st 00 every morning. Vital Signs Vital Name Observation Time Observation Value Comments Source Systolic blood 2020-05-14 12:55:00 108 mm[Hg] Veena Parrish pressure Diastolic blood 2020-05-14 12:55:00 58 mm[Hg] Sel[place] Parrish pressure Heart rate 2020-05-14 12:55:00 66 /min Giovanni Parrish Respiratory rate 2020-05-14 12:55:00 15 /min Marco A Parrish Body temperature 2020-05-14 12:50:00 36.44 Katharina [place] Jain Oxygen saturation in 2020-05-14 08:47:59 94 /min Giovanni Parrish Arterial blood by Pulse oximetry Body weight 2020-05-13 23:29:00 111.131 kg Giovanni Parrish BMI 2020-05-13 23:29:00 39.54 kg/m2 Giovanni Parrish Body height 2020-05-13 11:05:00 167.6 cm Giovanni Parrish Procedures Procedure Date / Time Performing Clinician Source Performed POC GLUCOSE 2020-05-14 13:43:00 ArmondSusan goldsmith [facility]od[facility] HEPATITIS B SURFACE 2020-05-14 09:20:00 PrestonElizabet velarde Jain ANTIGEN HEPATITIS B SURFACE 2020-05-14 09:20:00 SandraElizabet Jain ANTIBODY HEMODIALYSIS 2020-05-14 08:33:22 PrestonElizabet velarde Davila Meth odist POC GLUCOSE 2020-05-14 07:19:00 ArmondSusanwalter Davila [facility]odist POC GLUCOSE 2020-05-13 20:43:00 ArmondSusan goldsmith Davila [facility] POC GLUCOSE 2020-05-13 17:55:00 ArmondSusan goldsmith [facility] POC GLUCOSE 2020-05-13 14:05:00 ArmondSusan goldsmith [facility] POC GLUCOSE 2020-05-13 11:11:[address] [facility] [address] AN PERIPHERAL BLOCK 2020-05-13 08:50:13 Selma Ashley on Jain PROCEDURE FOR PAIN Bo Peter POC PANEL 2020-05-13 07:32:00 Fred Tolentino COMPREHENSIVE METABOLIC 2020-05-13 07:26:00 Fred Tolentino PANEL ESTIMATED GFR 2020-05-13 07:26:00 Fred Tolentino ECG PRE/POST OP 2020-05-11 14:54:11 Fred Tolentino COVID-19 QUALITATIVE PCR 2020-05-11 14:36:00 Fred Tolentino HC COMPLETE BLD COUNT 2020-05-11 14:36:00 Fred Tolentino W/AUTO DIFF TYPE AND SCREEN 2020-05-11 14:36:00 Fred Tolentino HEMOGLOBIN A1C 2020-05-11 14:36:00 Fred Tolentino PROTHROMBIN TIME WITH INR 2020-05-11 14:36:00 Fred Tolentino PARTIAL THROMBOPLASTIN 2020-05-11 14:36:00 Fred Tolentino TIME (PTT) POC GLUCOSE 2020-03-25 09:24:[address] AN PERIPHERAL BLOCK 2020-03-25 09:08:41 Selma Ashley PROCEDURE FOR PAIN Bo Peter POC PANEL 2020-03-25 07:29:00 Fred Tolentino COMPREHENSIVE METABOLIC 2020-03-25 07:26:00 Fred Tolentino PANEL ESTIMATED GFR 2020-03-25 07:26:00 Fred Tolentino XR CHEST 2 VW 2020-03-23 11:14:10 Giovanni Ashley ECG PRE/POST OP 2020-03-23 10:47:09 Giovanni Ashley COVID-19 QUALITATIVE PCR 2020-03-23 09:23:00 Oscar Ashley HC COMPLETE BLD COUNT 2020-03-23 09:23:00 Fred Tolentino W/AUTO DIFF TYPE AND SCREEN 2020-03-23 09:23:00 Fred Tolentino PARTIAL THROMBOPLASTIN 2020-03-23 09:23:00 Fred Tolentino TIME (PTT) PROTHROMBIN TIME WITH INR 2020-03-23 09:23:00 Fred Tolentino Plan of Care Planned Activity Planned Date Details Comments Source Future Scheduled 2006-02-15 BREAST CANCER Davila [facility] Test 00:00:00 SCREENING [code = BREAST CANCER SCREENING] Future Scheduled 2006-02-15 COLONOSCOPY SCREENING [place] Jain Test 00:00:00 [code = COLONOSCOPY SCREENING] Future Scheduled 2006-02-15 SHINGLES VACCINES [place] Test 00:00:00 (#1) [code = SHINGLES VACCINES (#1)] Future Scheduled 1977-02-15 Screening for [place] [facility]ist Test 00:00:00 malignant neoplasm of cervix (procedure) [code = 979018601] Future Scheduled 1966-02-15 DIABETES: RETINAL EYE [place] Jain Test 00:00:00 EXAM [code = DIABETES: RETINAL EYE EXAM] Future Scheduled 1966-02-15 DIABETIC FOOT EXAM [place] Jain Test 00:00:00 [code = DIABETIC FOOT EXAM] Encounters Start End Encounter Admission Attending Care Care Encounter Source Date/Time Date/Time Type Type Clinicians Facility Department ID 2020-05-13 2020-05-14 Outpatient SUSAN LEAHY [facility] 021 [id number] [place] 00:00:00 00:00:[address] 2020-05-11 2020-05-11 Outpatient [facility] [id number] [place] 00:00:00 00:00:00 IMRAN [address] 2020-04-01 2020-04-01 [facility] [id number] 06:36:00 10:10:00 Encounter Naveen Garza [id number] Collins Allison [id number] Surgical [id number] [place] 071 2020-04-01 2020-04-01 Anesthesia Demetrio Christensen [facility] [id number] 08:01:00 08:33:00 [facility] [id number] [place] [id number] Surgical [id number] [place] 020 2020-03-25 2020-03-25 Outpatient [facility] 021 [id number] [place] 00:00:00 00:00:00 IMRAN [address] 2020-03-23 2020-03-23 Outpatient [facility] [id number] [place] 00:00:00 00:00:00 IMRAN [address] 2020-03-23 2020-03-23 Outpatient WOJCDEBBIE [facility] [id number] [place] 00:00:00 00:00:00 Lydia BAUTISTA3 Method i BO st Results Test Description Test Time Test Comments Results Result Comments Source Hepatitis B surface Ab, quantitative 2020-05-16 09:21:15 Test Item Value Reference Range Interpretation Comme nts Hepatitis B surface Ab (test 17.00 IU/L The anti-HBs is greater than or equal to code = 5193-8) 10 IU/L. This patient has either had an antibody respon se to HBV vaccination, received a cole sfusion, or has recovered from HBV infect ion. This patient should be considered i mmune to hepatitis B.An anti-HBs result greater than or equal to 10 IU/L implies immunity. For post-vaccinatio n antibody testing guidelines for the general public refer to MMWR Decembe r 2004/Vol. 54(No. 16);07-31, and f or healthcare workers refer to MMWR D ec2012/Vol. 62(No. 10);- .Reference Interval: anti-HBs 9.99 I U/L or less ....... Ngdyuhnt47.00 I U/L or greater .... PositiveResults greater than 1,000.00 IU/L are report ed as greater than 1,000.00 IU/L. This assay should not be used for blood donor screening, associated re-e ntry protocols, or for screening Human Cell, Tissues and Cellular and Ti ssue-Based Products (HCT/P).Perform ed By: [employer] [place] [address] [id number] aboratory Director: MD Giovanni JuanHepatitis B surface [id number] 14:16:56 Test Item Value Reference Range Interpretation Comments Hepatitis B surface Ab (test code = Reactive Non-reactive A 87790-6) Lab Interpretation (test code = Abnormal 91260-4) [place] [facility] [id number] 13:44:18 Test Item Value Reference Range Interpretation Comments POC glucose (test code 173 mg/dL 65-99 H Opera tor Name: = 46104-9) Mao Morrow Device ID: [id number] able: RN Notified Lab Interpretation Abnormal (test code = 92900-1) Davila MethodistHepatitis B surface [id number] 10:16:56 Test Item Value Reference Range Interpretation Comments Hepatitis B surface Ag (test Non-reactive Non-reactive code = 5195-3) [place] MethodistPOC [id number] 13:05:15 Test Item Value Reference Range Interpretation Comments POC sodium (test code = 135 mmol/L 850-221 8690-0) POC potassium (test 4.2 mmol/L 3.5-5 code = 6298-4) POC glucose (test code 235 mg/dL 65-99 H Opera tor Name: = 2339-0) Hima Mcclellan ID : [id number] POC hemoglobin (test 11.6 g/dL 12-16 L code = 718-7) POC hematocrit (test 34 % 37-47 L code = 4544-3) Lab Interpretation Abnormal (test code = 09023-7) [place] MethodistPeripheral [id number] 08:50:13Bo Ashley MD 05/13/2020 8:54 AMPeripheral Block Date/Time: 05/13/2020 8:34 AMPerformed by: Bo Ashley MDAuthorized by: Bo Ashley MD Start Time:05/13/2020 8:20 AMEnd Time: 05/13/2020 8:45 AMReason for Block: at surgeon's request Staff: Anesthesiologist: Bo Ashley MD Resident/DATA LEAD/AA: James Toure CRNA Performed by: Resident/DATA LEAD/AAPreprocedure: patient identified, IV checked, site and side verified, risks and benefits discussed, procedure verified, surgical consent complete, patient position confirmed, monitors and equipment checked, pre-op evaluation complete, site marked and timeout performed prior to procedure Peripheral Nerve Block: Patient Position: Supine and sitting Prep: ChloraPrep Monitoring: Blood pressure monitoring, continuous pulse oximetry and heart rateBlock Type: InterscaleneLaterality: LeftInjection Technique: Single injectionProcedures: ultrasound guided and nerve stimulator Ultrasound documentation: Printed/placed in chartLocal Infiltration (See MAR for details): LidocaineLoss of Twitch: 0.5 mANeedle: Needle Type: Pajunk Needle Gauge: 21 G Needle Length: 10 cmAssessment: Injection Assessment: Visualized needle/local anesthetic surrounding nerve, visualized pertinent vascular structures and nerves, needle tip visualized at all times during injection of medication, intermittent aspiration during local anesthetic administration and no symptoms of intraneural/intravenous injection Paresthesia Pain: None Heart Rate Change: No Slow Fractionated Injection: Yes Block outcome: No apparent complications and patient comfortableNotes: 20 ML OF 0.5% Ro pivacaine and 5 ml of 2% lidocaine ISC injection around the brachial nerve bundle identified with anultrasound and the nerve stimulator. Musculocutaneous nerve block with 5 ml of 2% lidocaine and 5 mlof 0.5% ropivacaine.Medications AdministeredRopivacaine 0.5 % PF (mL), 20 mLLake [place] MethodistComprehensive metabolic [id number] 07:59:23 Test Item Value Reference Range Interpretation Comments Sodium (test code = 2951-2) 133 135- 148 mEq/L L Potassium (test code = 2823-3) 4.2 3.5- 5.0 mEq/L Chloride (test code = 2075-0) 97 98- 112 mEq/L L CO2 (test code = 2027-9) 23 24- 31 mEq/L L Anion gap (test code = 58429-9) 13@ANIO 7- 15 mEq/L BUN (test code = 3094-0) 36 mg/dL 8-23 H Creatinine (test code = 2160-0) 3.07 mg/dL 0.5-0.9 H Glucose (test code = 2345-7) 250 mg/dL 65-99 H Calcium (test code = 08930-3) 9.1 mg/dL 8.8-10.2 Protein (test code = 2885-2) 6.4 g/dL 6.3-8.3 Albumin (test code = 1751-7) 3.8 g/dL 3.5-5 A/G ratio (test code = 1759-0) 1.5 0.7-3.8 Alkaline phosphatase (test code = 116 U/L 35-104 H 6768-6) AST (test code = 1920-8) 21 U/L 10-35 ALT (test code = 1742-6) 13 U/L 5-50 Total bilirubin (test code = 0.3 mg/dL 0.2-1.2 1974-08) Lab Interpretation (test code = Abnormal 35387-0) Davila MethodistEstimated [id number] 07:59:23 Test Item Value Reference Range Interpretation Comments Estimated GFR (test 15 mL/min/1.73 m2 A Luis souza Units code = 5488) InterpretationG 1 >=90 Keiry l or highG2 60-89 Mildly decrease dG3a 45-59 Mil dly to moderately decr jdahwZ3s 30-44 Moderately to s everely decreasedG4 15-29 Severe ly decreasedG5 <15 Kidney davis lureThe eGFR was calcul ated using the [facility] Kidney Disease Epidemiology Collaboration ( CKD-EPI) equation. Interpretation is based on recommendati ons of the National [facility]-Kidn ey Disease Outcome s Quality Initiat hermes (NKF-KDOQI) pub lished in 2013. Lab Interpretation Abnormal (test code = 61657-7) Giovanni KitchenistCOVID-19 qualitative [id number] 01:15:52 Test Item Value Reference Range Interpretation Comments Interpretation (test Negative results do code = 2300871) not preclude 2019-nCoV infection and should not be used as the sole basis for treatment or other patient management decisions. Negative results must be combined with clinical observations, patient history, and epidemiological information. COVID-19 qualitative Not-Detected Not-Detected PCR result (test code = 10747-4) COVID-19 qualitative See link below for C ase Number: PCR (test code = PDF Lab Report [id number]) Davila MethodistType and [id number] 18:16:00 Test Item Value Reference Range Interpretation Comments ABO grouping (test code = 883-9) A Rh type (test code = 76430-0) POS Antibody screen (gel) (test code = NEG 890-4) Davila MethodistPartial thromboplastin time, [id number] 15:59:01 Test Item Value Reference Range Interpretation Comments PTT (test code = 28.1 23.0- 36.0 sec PTT thera peutic range for 3173-2) unfractionated heparin is61.0-112.0 se conds which corresponds to Anti-Xa0.3-0.7 U/ml. [place] MethodistHemoglobin [id number] 15:58:56 Test Item Value Reference Range Interpretation Comments Hemoglobin A1C (test 8.6 % 4-5.6 H HbA1c c utoffs for code = 84829-3) diagnosing diabetes:4.0% - 5.6% = normal5.7% - 6.4% = increased risk for diabetes (prediabetes)9> =6.5% = zjgcaqto7Xufa s for glycemic contro l (ADA 2016)< 7.0% Ta rget for non adults with pearl betes. More or less stringent targe ts may be appropriate for individual omaira ents. <7.5% Target for Children and adolescents wit h type 1 diabetes. Lab Interpretation (test Abnormal code = 28407-2) [place] MethodistProthrombin time with [id number] 15:58:18 Test Item Value Reference Range Interpretation Comments Prothrombin time (test 15.5 11.5- 14.5 sec H code = 5902-2) INR (test code = 1.2 [facility] 08757-0) Normalized Rati o (INR) is a therapeuti c monitoring tool for patients who ar e stable on oral anticoagulant t herapy. An INR of 2.0-3 .0 is suggested for d eep vein thrombosis/pulm onary embolism. Lab Interpretation Abnormal (test code = 01677-9) [place] MethodistCBC with platelet and [id number] 15:47:50 Test Item Value Reference Range Interpretation Comments WBC (test code = 49188-3) 11.7 4.5- 11.0 k/uL H RBC (test code = 47222-4) 3.46 m/uL 4.2-5.5 L HGB (test code = 718-7) 10.6 g/dL 12-16 L HCT (test code = 4544-3) 32.2 % 37-47 L MCV (test code = 787-2) 93.1 fL 82-100 MCH (test code = 785-6) 30.6 pg 27-34 MCHC (test code = 786-4) 32.9 g/dL 31-37 RDW - SD (test code = 51750-7) 46.5 fL 37-55 MPV (test code = 72575-6) 9.6 fL 6.9-11 Platelet count (test code = 239 K/uL 150-400 32334-1) Nucleated RBC (test code = 23655-3) 0.00 /100 WBC Neutrophils (test code = 39004-0) 76.1 % 39-69 H Lymphocytes (test code = 56927-1) 14.3 % 25-45 L Monocytes (test code = 60738-5) 6.6 % 0-10 Eosinophils (test code = 37978-9) 2.3 % 0-5 Basophils (test code = 03910-4) 0.3 % 0-1 Immature granulocytes (test code = 0.4 % 0-1 67827-3) Lab Interpretation (test code = Abnormal 44838-2) Giovanni MethodistECG Pre/Post [id number] 15:43:26 Test Item Value Reference Range Interpretation Comments Ventricular rate (test 70 code = 253) Atrial rate (test code 70 = 255) CT interval (test code 158 = 266) QRSD interval (test 92 code = 260) QT interval (test code 420 = 264) QTC interval (test code 453 = 265) P axis 1 (test code = 62 267) QRS axis 1 (test code = 3 268) T wave axis (test code 90 = 270) EKG impression (test Normal sinus code = 273) rhythm-Cannot rule out Anterior infarct , age undetermined-Abnormal ECG-In automated comparison with ECG of 23-MAR-2020 10:47,-No significant change was found- [place] MethodistPeripheral [id number] 09:08:41Bo Ashley MD 03/25/2020 9:13 AMPeripheral BlockDate/Time: 03/25/2020 7:36 AMPerformed by: Bo Ashley MDAuthorized by: Bo Ashley MD Patient Location: Pre-opStart Time: 03/25/2020 7:40 AMEnd Time: 03/25/2020 7:48 AMReason for Block: primary anesthetic Staff: Anesthesiologist: Bo Ashley MD Resident/DATA LEAD/AA: Brook Hernandez CRNA Performed by: AnesthesiologistPreprocedure: patient identified, IV checked, site and side verified, risks and benefits discussed, procedure verified, surgical consent complete, patient position confirmed, monitors and equipment checked, pre-op evaluation complete, site marked and timeout performed prior to procedure Peripheral Nerve Block: Patient Position: Supine and sitting Prep: ChloraPrep Monitoring: Blood pressure monitoring, continuous pulse oximetry and heart rateBlock Type: InterscaleneLaterality: LeftInjection Technique: Single injectionProcedures: ultrasound guided and nerve stimulator Ultrasound documentation: Printed/placed in chartLocal Infiltration (See MAR for details): LidocaineLoss of Twitch: 0.4 mANeedle: Needle Type: Pajunk Needle Gauge: 21 G NeedleLength: 10 cmAssessment: Injection Assessment: Visualized needle/local anesthetic surrounding nerve, visualized pertinent vascular structures and nerves, needle tip visualized at all times during in jection of medication, no symptoms of intraneural/intravenous injection and intermittent aspiration during local anesthetic administration Paresthesia Pain: None Heart Rate Change: No Slow Fractionated Injection: Yes Block outcome: No apparent complications and patient comfortableNotes: 5ml of 2% lidocaine mixed with 15 ml of 0.5% Ropivacaine, fractionated injections to the immediate area surrounding the left brachial plexus located with the ultrasound and the nerve stimulator.Medications AdministeredRopivacaine 0.5 % PF (mL), 15 mLLake Helen MethodistXR Chest 2 [id number] 11:36:18Hm Interface, Radiology Results 03/23/2020 11:39 AM CDTEXAMINATION: XR CHEST 2 VWCLINICAL HISTORY: Z01.818 Encounter for other preprocedural examination, Pre OP TestingCOMPARISON: No priorIMPRESSION:Lines: Right IJ dialysis catheter terminates at the right atrium.Lungs and pleura: Left lingular/basilar subsegmental atelectasis. No effusion or pneumothorax. Low lung volumes and mild vascular crowding.Heart and mediastinum: Mildly prominent appearance of cardiomediastinal silhouette. Bones: No suspicious osseous lesions. Osseous degenerative changes.[facility]-[id number] Jain
--- OUTSIDE RECORDS SUMMARY | 2020-06-18 08:26 | XMS REPORT | Clinical Summary ---
:1955 Author Organization [employer] Address [address] [place] [address] Care Team Providers Name Role Phone Anders Johnson MD Primary Care Provider Allergies Active Allergy Reactions Severity Noted Date Comments Adhesive Hives, Itching, Rash Low 11/18/2019 Tape-Silicones Codeine Hallucinations 11/18/2019 Other reactio n(s): Anaphylaxis Medications Medication Sig Dispensed Refills Start Date End Date Status amLODIPine Take 10 mg by 0 02/09/2020 Acti ve (NORVASC) 10 mg mouth daily. tablet furosemide (LASIX) Take 160 mg 0 01/07/2020 Active 80 mg tablet by mouth every morning. Lantus Solostar Inject 45 0 03/16/2020 Act hermes U-100 Insulin 100 Units under unit/mL injection the skin 2 (pen) (two) times a day. lisinopriL Take 5 mg by 0 01/21/2020 Activ e (PRINIVIL) 5 mg mouth daily. tablet metoprolol Take 50 mg by 0 03/10/2020 Acti ve succinate XL mouth 2 (two) (TOPROL-XL) 25 mg times a day. 24 hr tablet pantoprazole Take 40 mg by 0 02/18/2020 Ac tive (PROTONIX) 40 MG mouth daily. EC tablet levothyroxine Take 150 mcg 0 02/18/2020 Ac tive (SYNTHROID) 150 by mouth mcg tablet daily. buPROPion SR Take 150 mg 0 Activ e (WELLBUTRIN SR) by mouth 2 150 MG 12 hr (two) times a tablet day. aspirin 325 MG Take 325 mg 0 Act hermes tablet by mouth every evening. cholecalciferol, Take 2,000 0 Ac tive vitamin D3, 50 mcg Units by (2,000 unit) mouth daily. capsule capsule loratadine Take 10 mg by 0 Activ e (CLARITIN) 10 mg mouth daily. tablet multivit-min/iron/ Take by 0 A ctive folic/lutein mouth. (CENTRUM SILVER WOMEN ORAL) docusate sodium Take 100 mg 0 Ac tive (Stool Softener) by mouth 2 100 MG capsule (two) times a day. atorvastatin Take 20 mg by 0 Act hermes (LIPITOR) 20 mg mouth daily. tablet Default OP ins folic acid/vit B Take 1 tablet 0 Active complex and C by mouth (DIALYVITE ORAL) daily. ciprofloxacin HCl Take 500 mg 0 Active (CIPRO ORAL) by mouth daily. For 2 more days insulin lispro Inject 30 0 05/14/2020 Acti ve (HumaLOG U-100 Units under Insulin) 100 the skin 3 unit/mL injection (three) times a day before meals. insulin lispro Inject 30 0 Disco ntinued (HUMALOG U-100 Units under 0 (Er ror) INSULIN SUBQ) the skin 3 (three) times a day before meals. HYDROcodone-acetam Take 1 tablet 30 tablet 0 03/25/2020 inophen (NORCO) by mouth 0 5-325 mg per every 6 (six) tabletIndications: hours as acute pain needed for moderate pain for up to 30 doses .acute pain. Max Daily Amount: 4 tablets HYDROcodone-acetam Take 1 tablet 10 tablet 0 05/14/2020 inophen (Bailey) by mouth 0 5-325 mg per every 8 tabletIndications: (eight) hours acute pain as needed for moderate pain for up to 3 days .acute pain. Max Daily Amount: 3 tablets Active Problems Problem Noted Date ESRD (end stage renal disease) on dialysis 05/13/2020 Encounters Date Type Specialty Care Team Description 05/13/2020 Surgery General Surgery Fred Tolentino LEFT ARM SECOND STAGE TMD Shaji BASILIC VEIN TRASNPOSITION 05/13/2020 Anesthesia Event General Surgery Monty Ashley MD Cheema, Ivelisse, FNP 05/13/2020 - Hospital Encounter General Internal Fred Tolentino 05/14/2020 Medicine TMD Armond Girard Salman Siraj, MD 05/11/2020 Pre-Admission Pre-Admission Fred Tolentino Preop adri ting Testing Testing MD Melanie (Primary Dx) 05/10/2020 Travel 03/25/2020 Anesthesia Event General Surgery Monty Ashley MD Cheema, Ivelisse, NILE 03/25/2020 Surgery General Surgery Fred Tolentino Left 1st stage MD Melanie basilic vein transposition f istula 03/25/2020 Hospital Encounter General Surgery Fred Tolentino MD 03/23/2020 Hospital Encounter Radiology Gabi Preop t esting Monty Peter MD 03/23/2020 Pre-Admit Testing Pre-Admission Fred Tolentino Preop testing Appointment Testing MD Melanie (Primary Dx) 03/22/2020 Travel after 06/18/2019 Surgical History Surgery Date Site/Laterality Comments LUMBAR FUSION SECTION X1 CARPAL TUNNEL RELEASE Bilateral CERVICAL FUSION THYROID SURGERY PARTIAL THYROIDE CTOMY JOINT REPLACEMENT Bilateral KNEE REPLACEME NT AV FISTULA PLACEMENT Left ARM TUNNELED VENOUS PORT Right CHEST (FOR DIALYSIS) PLACEMENT CREATION, AV FISTULA, UPPER 03/25/2020 Arm Upper/Left Proc edure: Left 1st stage EXTREMITY, DISTAL basilic vein t ransposition fistula; Surgeo n: Fred Tolentino MD; L ocation: [facility] Main OR; Servic e: Vascular; Laterality: Left ; CREATION, AV FISTULA, UPPER 05/13/2020 Arm Upper/Left Proc edure: LEFT ARM SECOND EXTREMITY, DISTAL STAGE BASILIC VEIN TRASNPOSITION; Surgeon: Fred Tolentino MD; Location: [facility] OR; Service: Vascula r; Laterality: Left ; Medical History Medical History Date Comments Hypertension Hypercholesteremia Renal failure MWF RIGHT CHEST PORT ESRD on dialysis (HCC) GERD (gastroesophageal reflux disease) Hypothyroidism Type 2 diabetes mellitus (HCC) Depression History of transfusion 1987 Wears glasses Exercise tolerance finding WALKS WITH HE R CANE -- ABLE TO DO HER OWN CHORES IN HOUSE NO C HEST PAIN Family History Medical History Relation Name Comments Heart disease Father Hypertension Father Thrombophlebitis Father Diabetes Mother Hyperlipidemia Mother Hypertension Mother Kidney disease Mother Relation Name Status Comments Father Mother Alive Social History Tobacco Use Types Packs/Day Years Used Date Former Smoker 0.5 3 Quit: 1984 Smokeless Tobacco: Never Used Alcohol Use Drinks/Week oz/Week Comments Yes RARELY Sex Assigned at Date Recorded Not on file Last Filed Vital Signs Vital Sign Reading Time Taken Comments Blood Pressure 108/58 05/14/2020 12:55 PM COAL CONVEYOR OPERATOR Pulse 66 05/14/2020 12:55 PM COAL CONVEYOR OPERATOR Temperature 36.4 C (97.6 F) 05/14/2020 12:50 PM COAL CONVEYOR OPERATOR Respiratory Rate 15 05/14/2020 12:55 PM COAL CONVEYOR OPERATOR Oxygen Saturation 94% 05/14/2020 8:47 AM COAL CONVEYOR OPERATOR Inhaled Oxygen Concentration - - Weight 111 kg (245 lb) 05/13/2020 11:29 PM COAL CONVEYOR OPERATOR Height 167.6 cm (5' 6") 05/13/2020 11:05 AM COAL CONVEYOR OPERATOR Body Mass Index 39.54 05/13/2020 11:05 AM COAL CONVEYOR OPERATOR Plan of Treatment Health Maintenance Due Date Last Done Comments DIABETES: RETINAL EYE EXAM 02/15/1966 DIABETIC FOOT EXAM 02/15/1966 CERVICAL CANCER SCREENING 02/15/1977 BREAST CANCER SCREENING 02/15/2006 COLONOSCOPY SCREENING 02/15/2006 SHINGLES VACCINES (#1) 02/15/2006 INFLUENZA VACCINE Completed 05/05/2020 Procedures Procedure Name Priority Date/Time Associated Comments Diagnosis POC GLUCOSE Routine 05/14/2020 1:43 Results for this PM COAL CONVEYOR OPERATOR procedure are i n the results section. HEPATITIS B SURFACE Routine 05/14/2020 9:20 Resu lts for this ANTIBODY AM COAL CONVEYOR OPERATOR procedure are i n the results section. HEPATITIS B SURFACE AB, Routine 05/14/2020 9:20 Results for this QUANTITATIVE AM COAL CONVEYOR OPERATOR procedure are i n the results section. HEPATITIS B SURFACE Routine 05/14/2020 9:20 Resu lts for this ANTIGEN AM COAL CONVEYOR OPERATOR procedure are i n the results section. HEMODIALYSIS Routine 05/14/2020 8:33 AM COAL CONVEYOR OPERATOR POC GLUCOSE Routine 05/14/2020 7:19 Results for this AM COAL CONVEYOR OPERATOR procedure are i n the results section. POC GLUCOSE Routine 05/13/2020 8:43 Results for this PM COAL CONVEYOR OPERATOR procedure are i n the results section. POC GLUCOSE Routine 05/13/2020 5:55 Results for this PM COAL CONVEYOR OPERATOR procedure are i n the results section. POC GLUCOSE Routine 05/13/2020 2:05 Results for this PM COAL CONVEYOR OPERATOR procedure are i n the results section. POC GLUCOSE Routine 05/13/2020 11:11 Results for this AM COAL CONVEYOR OPERATOR procedure are i n the results section. MA AN PERIPHERAL BLOCK Routine 05/13/2020 8:50 R esults for this PROCEDURE FOR PAIN AM COAL CONVEYOR OPERATOR procedure are in the results section. POC PANEL Routine 05/13/2020 7:32 Results for this AM COAL CONVEYOR OPERATOR procedure are i n the results section. ESTIMATED GFR STAT 05/13/2020 7:26 Results fo r this AM COAL CONVEYOR OPERATOR procedure are i n the results section. COMPREHENSIVE METABOLIC STAT 05/13/2020 7:26 Results for this PANEL AM COAL CONVEYOR OPERATOR procedure are i n the results section. ECG PRE/POST OP Routine 05/11/2020 2:54 Preop testing Results for this PM COAL CONVEYOR OPERATOR procedure are i n the results section. PARTIAL THROMBOPLASTIN Routine 05/11/2020 2:36 Preop testing Results for this TIME (PTT) PM COAL CONVEYOR OPERATOR procedure are i n the results section. PROTHROMBIN TIME WITH Routine 05/11/2020 2:36 Preop testing R esults for this INR PM COAL CONVEYOR OPERATOR procedure are i n the results section. HEMOGLOBIN A1C Routine 05/11/2020 2:36 Preop testing Results for this PM COAL CONVEYOR OPERATOR procedure are i n the results section. TYPE AND SCREEN Routine 05/11/2020 2:36 Preop testing Results for this PM COAL CONVEYOR OPERATOR procedure are i n the results section. HC COMPLETE BLD COUNT Routine 05/11/2020 2:36 Preop testing R esults for this W/AUTO DIFF PM COAL CONVEYOR OPERATOR procedure are i n the results section. COVID-19 QUALITATIVE Routine 05/11/2020 2:36 Preop testing Re sults for this PCR PM COAL CONVEYOR OPERATOR procedure are i n the results section. POC GLUCOSE Routine 03/25/2020 9:24 Results for this AM CDT procedure are i n the results section. MA AN PERIPHERAL BLOCK Routine 03/25/2020 9:08 R esults for this PROCEDURE FOR PAIN AM CDT procedure are in the results section. POC PANEL Routine 03/25/2020 7:29 Results for this AM CDT procedure are i n the results section. ESTIMATED GFR STAT 03/25/2020 7:26 Results fo r this AM CDT procedure are i n the results section. COMPREHENSIVE METABOLIC STAT 03/25/2020 7:26 Results for this PANEL AM CDT procedure are i n the results section. XR CHEST 2 VW Routine 03/23/2020 11:14 Preop testing Results f or this AM CDT procedure are i n the results section. ECG PRE/POST OP Routine 03/23/2020 10:47 Preop testing Results for this AM CDT procedure are i n the results section. PROTHROMBIN TIME WITH Routine 03/23/2020 9:23 Preop testing R esults for this INR AM CDT procedure are i n the results section. PARTIAL THROMBOPLASTIN Routine 03/23/2020 9:23 Preop testing Results for this TIME (PTT) AM CDT procedure are i n the results section. TYPE AND SCREEN Routine 03/23/2020 9:23 Preop testing Results for this AM CDT procedure are i n the results section. HC COMPLETE BLD COUNT Routine 03/23/2020 9:23 Preop testing R esults for this W/AUTO DIFF AM CDT procedure are i n the results section. COVID-19 QUALITATIVE Routine 03/23/2020 9:23 Preop testing Re sults for this PCR AM CDT procedure are i n the results section. after 06/18/2019 Results POC glucose (05/14/2020 1:43 PM COAL CONVEYOR OPERATOR)Only the most recent of7 resultswithin the time period is included. Pathologist [facility] POC glucose 173 (H) 65 - 99 mg/dL [facility] Comment: [facility] Psychological Anthropologist Name: Mao Morrow Device ID: [id number] Chartable: RN Notified Specimen Blood Performing Organization Address City/State/ZIP Code Phon e Number [facility] DEPARTMENT OF PATHOLOGY [address] [facility] X [address] AND GENOMIC MEDICINE [facility] [address] [facility] [place] [address] [facility] Hepatitis B surface Ab, quantitative (05/14/2020 9:20 AM COAL CONVEYOR OPERATOR) Pathologist [facility] Hepatitis B 17.00 IU/L [facility] surface Ab Comment: The anti-HBs is greater than or equal to 10 IU/L. This patient has either had an antibody response to HBV vaccination, re ceived a transfusion, or has recovered from HBV infection. This patient should be considered immune to hepatitis B. An anti-HBs result greater than or equal to 10 IU/L im plies immunity. For post-vaccination antibody testing guidel farideh for the general public refer to MMWR June 30, 2005/Vol. 54 (No. 16);-, and for healthcare workers refer to MMWR Jun/Vol. 62(No. 10);-19. Reference Interval: anti-HBs 9.99 IU/L or less ....... Negative 10.00 IU/L or greater .... Positive Results greater than 1,000.00 IU/L are reported as gre ater than 1,000.00 IU/L. This assay should not be used for blood donor screenin g, associated re-entry protocols, or for screening Human Cell, Tissues and Cellular and Tissue-Based Products (HCT/P) . Performed By: [facility] [address] [place] [id number] Patrol Officer: Lori Wooten MD Specimen Serum Performing Organization Address City/[facility] Phon e Number [facility] [address] [place] [phone] [facility] [address] [place] [phone] Hepatitis B surface antibody (05/14/2020 9:20 AM COAL CONVEYOR OPERATOR) Pathologist Sig nature Hepatitis B surface Reactive (A) Non-reactive [facility] Specimen Blood Performing Organization Address City/[facility] Phon e Number [facility] DEPARTMENT OF PATHOLOGY AND [address] [place] [address] [address] [address] Hepatitis B surface antigen (05/14/2020 9:20 AM COAL CONVEYOR OPERATOR) Pathologist Sig nature Hepatitis B surface Non-reactive Non-reactive [facility] Specimen Blood Performing Organization Address City/[facility] Phon e Number [facility] DEPARTMENT OF PATHOLOGY [id number] [place] [id number] AND [facility] [id number] [place] [address] X [address] HOSPITAL Peripheral Block (05/13/2020 8:50 AM COAL CONVEYOR OPERATOR) Narrative Performed At Monty Ashley MD 05/13/2020 8:54 AM Peripheral Block Date/Time: 05/13/2020 8:34 AM Performed by: Monty Ashley MD Authorized by: Monty Ashley MD Start Time: 05/13/2020 8:20 AM End Time: 05/13/2020 8:45 AM Reason for Block: at surgeon's request Staff: Anesthesiologist: Essence Ashley MD Resident/DYE BECK REEL OPERATOR/AA: James Toure Ma, CRNA Performed by: Resident/DYE BECK REEL OPERATOR/AA Preprocedure: patient identified, IV vicki cked, site and side verified, risks and benefits discussed, procedure verified, surgical consent complete, patient position confirmed, mo nitors and equipment checked, pre-op evaluation complete, site marked and timeout performed prior to procedure Peripheral Nerve Block: Patient Position: Supine and sittin g Prep: ChloraPrep Monitoring: Blood pressure monitoring, continuous pulse oximetry and heart rate Block Type: Interscalene Laterality: Left Injection Technique: Single injection Procedures: ultrasound guided and nerve stimulator Ultrasound documentation: Printed/plac ed in chart Local Infiltration (See MAR for details) : Lidocaine Loss of Twitch: 0.5 mA Needle: Needle Type: Pajunk Needle Gauge: 21 G Needle Length: 10 cm Assessment: Injection Assessment: Visualized needle/local ane sthetic surrounding nerve, visualized pertinent vascular str uctures and nerves, needle tip visualized at all times during injection of medication, intermittent aspiration during local anesthetic admin istration and no symptoms of intraneural/intravenous injection Paresthesia Pain: None Heart Rate Change: No Slow Fractionated Injection: Yes Block outcome: No apparent complica tions and patient comfortable Notes: 20 ML OF 0.5% Ropivacaine and 5 ml of 2% lidocaine ISC injection around the brachial nerve bundle identified wit h an ultrasound and the nerve stimulator. Musculocutaneous nerve block with 5 ml of 2% lidocaine and 5 ml of 0.5% ropivacaine. Medications Administered Ropivacaine 0.5 % PF (mL), 20 mL POC panel (05/13/2020 7:32 AM COAL CONVEYOR OPERATOR)Only the most recent of2 resultswithin the time period is included. POC sodium 135 135 - 148 [facility] mmol/L [facility] POC potassium 4.2 3.5 - 5.0 [facility] mmol/L [facility] POC glucose 235 (H) 65 - 99 mg/dL [facility] Comment: [place] Psychological Anthropologist Name: [facility] Device ID: [id number] POC hemoglobin 11.6 (L) 12.0 - 16.0 [facility] g/dL [facility] POC hematocrit 34 (L) 37 - 47 % [facility] Specimen Blood Performing Organization Address City/State/[facility] Phon e Number [facility] DEPARTMENT OF PATHOLOGY [id number] [place] [address] Estimated GFR (05/13/2020 7:26 AM COAL CONVEYOR OPERATOR)Only the most recent of2 resultswithin the time period is included. Estimated GFR 15 (A) mL/min/1.73 [facility] Comment: m2 [place] Catergory Units Interpretation HOS PITAL G1 >=90 Normal or high G2 60-89 Mildly decreased G3a 45-59 Mildly to moderately decreas ed G3b 30-44 Moderately to severely decre ased G4 15-29 Severely decreased G5 <15 Kidney failure The eGFR was calculated using the Chronic Kidney Disea se Epidemiology Collaboration (CKD-EPI) equation. Interpretation is based on recommendations of the National Kidney Foundation-Kidney Disease Outcomes Julio lity Initiative (NKF-KDOQI) published in 2014. Specimen Plasma Performing Organization Address [facility] Phon e Number [facility] DEPARTMENT OF PATHOLOGY [id number] [place] [address] Comprehensive metabolic panel (05/13/2020 7:26 AM COAL CONVEYOR OPERATOR)Only the most recent of2 resultswithin the time period is included. Pathologist Sig nature Sodium 133 (L) 135 - 148 mEq/L [facility] Potassium 4.2 3.5 - 5.0 mEq/L [facility] Chloride 97 (L) 98 - 112 mEq/L [facility] CO2 23 (L) 24 - 31 mEq/L [facility] Anion gap 13@ANIO 7 - 15 mEq/L [facility] BUN 36 (H) 8 - 23 mg/dL [facility] Creatinine 3.07 (H) 0.50 - 0.90 [facility] mg/dL [facility] Glucose 250 (H) 65 - 99 mg/dL [facility] Calcium 9.1 8.8 - 10.2 [facility] mg/dL [facility] Protein 6.4 6.3 - 8.3 g/dL [facility] Albumin 3.8 3.5 - 5.0 g/dL [facility] A/G ratio 1.5 0.7 - 3.8 [facility] Alkaline phosphatase 116 (H) 35 - 104 U/L [facility] AST 21 10 - 35 U/L [facility] ALT 13 5 - 50 U/L [facility] Total bilirubin 0.3 0.2 - 1.2 mg/dL [facility] Specimen Plasma Performing Organization Address [facility] Phon e Number [facility] DEPARTMENT OF PATHOLOGY [address] [facility] [place] [address] AND GENOMIC MEDICINE [facility] [address] [facility] X [address] HOSPITAL ECG Pre/Post Op (05/11/2020 2:54 PM COAL CONVEYOR OPERATOR)Only the most recent of2 resultswithin the time period is included. Pathologist Sig nature Ventricular rate 70 [facility] Atrial rate 70 [facility] MA interval 158 [facility] QRSD interval 92 [facility] QT interval 420 [facility] QTC interval 453 [facility] P axis 1 62 [facility] QRS axis 1 3 [facility] T wave axis 90 [facility] EKG impression Normal sinus [facility] rhythm-Cannot rule out Anterior infarct , age undetermined-Abnormal ECG-In automated comparison with ECG of 23-MAR-2020 10:47,-No significant change was found- Specimen Narrative Performed At This result has an attachment that is no t available. Performing Organization Address [facility] Phon e Number [facility] MUSE [address] [place] [address] COVID-19 qualitative PCR (05/11/2020 2:36 PM COAL CONVEYOR OPERATOR)Only the most recent of2 resultswithin the time period is included. Interpretation Negative results do not prec lude 2019-nCoV infection and should not be used as the sole basis for treatment or other patient management decisions. Negative results must be combined with clinical observations, patient history, and epidemiological [facility] information. [facility] COVID-19 qualitative Not-Detected Not-Detecte [place] PCR result d [facility] COVID19 qualitative See link below for [place] PCR PDF Lab DRUZE ReportComment: Case HOSPITAL Number: [id number] Specimen Nasal swab Performing Organization Address City/[facility]/ZIP [facility] Phon e Number [facility] DEPARTMENT OF PATHOLOGY AND [address] [place], [place] [address] [facility] [address] [place] [address] [facility] Partial thromboplastin time, activated (05/11/2020 2:36 PM COAL CONVEYOR OPERATOR)Only the most recent of2 resultswithin the time period is included. PTT 28.1 23.0 - 36.0 [facility] Comment: [facility] PTT therapeutic range for unfractionated heparin is HOSPITAL 61.0-112.0 seconds which corresponds to Anti-Xa 0.3-0.7 U/ml. Specimen Blood Performing Organization Address [facility] Phon e Number [facility] DEPARTMENT OF PATHOLOGY [phone] [place] [address] Prothrombin time with INR (05/11/2020 2:36 PM COAL CONVEYOR OPERATOR)Only the most recent of2 resultswithin the time period is included. Pathologist [facility] Prothrombin time 15.5 (H) 11.5 - 14.5 [facility] INR 1.2 [place] Comment: [facility] International Normalized Ratio (INR) is a therapeu [facility] monitoring tool for patients who are stable on oral anticoagulant therapy. An INR of 2.0-3.0 is suggested for deep vein thrombosis/pulmonary embolism. Specimen Blood Performing Organization Address City/[facility] Phon e Number [facility] DEPARTMENT OF PATHOLOGY [phone] [place] [address] CBC with platelet and differential (05/11/2020 2:36 PM COAL CONVEYOR OPERATOR)Only the most recent of2 resultswithin the time period is included. WBC 11.7 (H) 4.5 - 11.0 k/uL [facility] RBC 3.46 (L) 4.20 - 5.50 [facility] m/uL [facility] HGB 10.6 (L) 12.0 - 16.0 [facility] g/dL [facility] HCT 32.2 (L) 37.0 - 47.0 % [facility] MCV 93.1 82.0 - 100.0 fL [facility] MCH 30.6 27.0 - 34.0 pg [facility] MCHC 32.9 31.0 - 37.0 [facility] g/dL [facility] RDW - SD 46.5 37.0 - 55.0 fL [facility] MPV 9.6 6.9 - 11.0 fL [facility] Platelet count 239 150 - 400 K/uL [facility] Nucleated RBC 0.00 /100 WBC [facility] Neutrophils 76.1 (H) 39.0 - 69.0 % [facility] Lymphocytes 14.3 (L) 25.0 - 45.0 % [facility] Monocytes 6.6 0.0 - 10.0 % [facility] Eosinophils 2.3 0.0 - 5.0 % [facility] Basophils 0.3 0.0 - 1.0 % [facility] Immature granulocytes 0.4 0.0 - 1.0 % [facility] Specimen Plasma Performing Organization Address City/[facility]/ZIP Code Phon e Number [facility] DEPARTMENT OF PATHOLOGY [id number] [place] [address] [address] [place] [address] HOSPITAL Type and screen (05/11/2020 2:36 PM COAL CONVEYOR OPERATOR)Only the most recent of2 resultswithin the time period is included. Pathologist Sig nature ABO grouping A [facility] Rh type POS [facility] Antibody screen (gel) NEG [facility] Specimen Plasma Performing Organization Address City/[facility]/ZIP [facility] Phon e Number [facility] DEPARTMENT OF PATHOLOGY [id number] [place] [id number] [address] GENOMIC [id number] [place] [address] Hemoglobin A1c (05/11/2020 2:36 PM COAL CONVEYOR OPERATOR) Hemoglobin A1C 8.6 (H) 4.0 - 5.6 % UMANZOR DRUZE Comment: AMARILLO HbA1c cutoffs for diagnosing diabetes: HO SPITAL 4.0% - 5.6% = normal 5.7% - 6.4% = increased risk for diabetes (prediabetes )9 >=6.5% = diabetes9 Goals for glycemic control (ADA 2016) < 7.0% Target for non adults with diabetes. More or less stringent targets may be appropriate for individual patients. <7.5% Target for Children and adolescents with type 1 diabetes. Specimen Blood Performing Organization Address City/State/ZIP Code Phon e Number [facility] DEPARTMENT OF PATHOLOGY [address] [facility] [employer] [place] [phone] AND GENOMIC MEDICINE [facility] [address] [facility] [employer] [place] [address] [facility] Peripheral Block (03/25/2020 9:08 AM CDT) Narrative Performed At Monty Ashley MD 03/09 9:13 AM Peripheral Block Date/Time: 03/25/2020 7:36 AM Performed by: Monty Ashley MD Authorized by: Monty Ashley MD Patient Location: Pre-op Start Time: 03/25/2020 7:40 AM End Time: 03/25/2020 7:48 AM Reason for Block: primary anesthetic Staff: Anesthesiologist: Essence Ashley MD Resident/DYE BECK REEL OPERATOR/AA: Brook Hernandez C RNA Performed by: Anesthesiologist Preprocedure: patient identified, IV vicki cked, site and side verified, risks and benefits discussed, procedure verified, surgical consent complete, patient position confirmed, mo nitors and equipment checked, pre-op evaluation complete, site marked and timeout performed prior to procedure Peripheral Nerve Block: Patient Position: Supine and sittin g Prep: ChloraPrep Monitoring: Blood pressure monitoring, continuous pulse oximetry and heart rate Block Type: Interscalene Laterality: Left Injection Technique: Single injection Procedures: ultrasound guided and nerve stimulator Ultrasound documentation: Printed/plac ed in chart Local Infiltration (See MAR for details) : Lidocaine Loss of Twitch: 0.4 mA Needle: Needle Type: Pajunk Needle Gauge: 21 G Needle Length: 10 cm Assessment: Injection Assessment: Visualized needle/local ane sthetic surrounding nerve, visualized pertinent vascular str uctures and nerves, needle tip visualized at all times during injection of medication, no symptoms of intraneural/intravenous injection and intermittent asp iration during local anesthetic administration Paresthesia Pain: None Heart Rate Change: No Slow Fractionated Injection: Yes Block outcome: No apparent complica tions and patient comfortable Notes: 5 ml of 2% lidocaine mixed with 15 ml of 0.5% Ropi vacaine, fractionated injections to the immediate area surroun ding the left brachial plexus located with the ultrasound and the nerv e stimulator. Medications Administered Ropivacaine 0.5 % PF (mL), 15 mL XR Chest 2 Vw (03/23/2020 11:14 AM CDT) Specimen Narrative Performed At EXAMINATION: XR CHEST 2 VW [facility] CLINICAL HISTORY: Z01.818 Encounter for other prepro cedural examination, Pre OP Testing COMPARISON: No prior IMPRESSION: Lines: Right IJ dialysis catheter termin ates at the right atrium. Lungs and pleura: Left lingular/basilar subsegmental a telectasis. No effusion or pneumothorax. Low lung volum es and mild vascular crowding. Heart and mediastinum: Mildly prominent appearance of cardiomediastinal silhouette. Bones: No suspicious osseous lesions. Os seous degenerative changes. [facility]-[id number] Procedure Note Hm Interface, Radiology Results Incoming - 03/23/2020 11:39 AM CDT EXAMINATION: XR CHEST 2 VW CLINICAL HISTORY: Z01.818 Encounter for other preprocedural examination, Pre OP Testing COMPARISON: No prior IMPRESSION: Lines: Right IJ dialysis catheter termin ates at the right atrium. Lungs and pleura: Left lingular/basilar subsegmental atelectasis. No effusion or pneumothorax. Low lung volumes and mild vascular crowding. Heart and mediastinum: Mildly prominent appearance of cardiomediastinal silhouette. Bones: No suspicious osseous lesions. Os seous degenerative changes. 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
[2020-06-18 08:54] LABS: Absolute Lymphocytes (CBC) 1.2 K/uL (0.7-4.9); Basophils % 1.2 % (0-1.3); Hematocrit 28.8 % (36.0-45.0); Lymphocytes % 12.1 % (15.3-44.8); MPV 7.7 fL (7.6-11.3); RBC Red Blood Cell Count 3.26 M/uL (3.86-4.86)
--- NOTE | 2020-06-18 09:20 | RAD REPORT ---
EXAM DESCRIPTION: CT - Head Brain Wo Cont - 06/18/2020 9:13 am CLINICAL HISTORY: Right arm spasms/numbness COMPARISON: None TECHNIQUE: Computed axial tomography of the head was obtained. IV contrast was not requested. All CT scans are performed using dose optimization technique as appropriate and may include automated exposure control or mA/KV adjustment according to patient size. FINDINGS: An intracranial bleed is not seen . The ventricles are normal in caliber. No extra-axial fluid collection is noted. Mild low-density areas within periventricular, deep and subcortical white matter likely represent isc hemic changes secondary to small vessel disease. Fluid within the sinuses/ mastoids is not seen. IMPRESSION: No acute intracranial abnormality is seen. If patient's symptoms persist MRI of the bra in would be recommended.
--- NOTE | 2020-06-18 10:28 | RAD REPORT ---
EXAM DESCRIPTION: MRI - Brain Wo Cont - 06/18/2020 10:18 am CLINICAL HISTORY: Right arm tremors/numbness COMPARISON: June 18, 2020 CT TECHNIQUE: Axial, sagittal, and coronal magnetic images of the brain were obtained. Contrast was not requested FINDINGS: No significant abnormal signal is present within the brain. Diffusion-weighted/ADC mapping does not reveal evidence of acute infarction. The ventricles are normal caliber. An extra-axial fluid collection is not present Fluid within the sinuses/mastoids is not noted IMPRESSION: No acute abnormality is displayed
--- NOTE | 2020-06-18 10:37 | EDPHYS ---
Physician Documentation [facility] Name: Meseret Gallego Age: 65 yrs Sex: Female : 1955 Arrival Date: 06/18/2020 Time: 08:22 Bed 26 Private MD: ED Physician Gasper Lazcano HPI: 06/18 18:22 This 65 yrs old Female presents to ER via EMS with complaints of Tremor. kdr 18:22 The patient was at dialysis this morning when she started to have intermittent tremors kdr and shakes of both right upper and lower extremity. This has not happened before. It was spasm like and intermittent fully resolving between tremors/twitches. She has not other focal or global deficits. At the time of my exam, her s/s had resolved. Onset: The symptoms/episode began/occurred suddenly, just prior to arrival, this morning. Severity of symptoms: At their worst the symptoms were mild moderate in the emergency department the symptoms are unchanged. The patient has not experienced similar symptoms in the past. The patient has not recently seen a physician. Historical: - Allergies: 08:26 Codeine; em 08: Tape; em - PMHx: 08: Diabetes - IDDM; Hypertension; Hypothyroidism; em - PSHx: 08:26 Thyroidectomy; neck fusion; back fusion; Carpal Tunnel Repair; ; Knee surgery; em - Immunization history:: Adult Immunizations up to date. - Social history:: Smoking status: Patient denies any tobacco usage or history of. ROS: 18:22 Constitutional: Negative for fever, chills, and weight loss, Eyes: Negative for injury, kdr pain, redness, and discharge, ENT: Negative for injury, pain, and discharge, Neck: Negative for injury, pain, and swelling, Cardiovascular: Negative for chest pain, palpitations, and edema, Respiratory: Negative for shortness of breath, cough, wheezing, and pleuritic chest pain, Abdomen/GI: Negative for abdominal pain, nausea, vomiting, diarrhea, and constipation, Back: Negative for injury and pain, : Negative for injury, bleeding, discharge, and swelling, MS/Extremity: Negative for injury and deformity, Skin: Negative for injury, rash, and discoloration, Psych: Negative for depression, anxiety, suicide ideation, homicidal ideation, and hallucinations, Allergy/Immunology: Negative for hives, rash, and allergies, Endocrine: Negative for neck swelling, polydipsia, polyuria, polyphagia, and marked weight changes, Hematologic/Lymphatic: Negative for swollen nodes, abnormal bleeding, and unusual bruising. 18:22 Neuro: Positive for tremor, of the right arm and right leg. Exam: 18:22 Constitutional: This is a well developed, well nourished patient who is awake, alert, kdr and in no acute distress. Head/Face: Normocephalic, atraumatic. Eyes: Pupils equal round and reactive to light, extra-ocular motions intact. Lids and lashes normal. Conjunctiva and sclera are non-icteric and not injected. Cornea within normal limits. Periorbital areas with no swelling, redness, or edema. Neck: Trachea midline, no thyromegaly or masses palpated, and no cervical lymphadenopathy. Supple, full range of motion without nuchal rigidity, or vertebral point tenderness. No Meningismus. Chest/axilla: Normal chest wall appearance (except for dialysis cath) and motion. Nontender with no deformity. No lesions are appreciated. Cardiovascular: Regular rate and rhythm with a normal S1 and S2. No gallops, murmurs, or rubs. Normal PMI, no JVD. No pulse deficits. Respiratory: Lungs have equal breath sounds bilaterally, clear to auscultation and percussion. No rales, rhonchi or wheezes noted. No increased work of breathing, no retractions or nasal flaring. Abdomen/GI: Soft, non-tender, with normal bowel sounds. No distension or tympany. No guarding or rebound. No evidence of tenderness throughout. Back: No spinal tenderness. No costovertebral tenderness. Full range of motion. Skin: Warm, dry with normal turgor. Normal color with no rashes, no lesions, and no evidence of cellulitis. MS/ Extremity: Pulses equal, no cyanosis. Neurovascular intact. Full, normal range of motion. Neuro: Awake and alert, GCS 15, oriented to person, place, time, and situation. Cranial nerves II-XII grossly intact. Motor strength 5/5 in all extremities. Sensory grossly intact. Cerebellar exam normal. Normal gait. Psych: Awake, alert, with orientation to person, place and time. Behavior, mood, and affect are within normal limits. Vital Signs: 08:22 BP 127 / 68; Pulse 72; Resp 18; Temp 97.8; Pulse Ox 100% on R/A; Weight 109.32 kg; em Height 5 ft. 6 in. (167.64 cm); Pain 6/10; 10:15 BP 130 / 63; Pulse 72; Resp 17; Pulse Ox 100% ; Pain 0/10; jl7 08:22 Body Mass Index 38.90 (109.32 kg, 167.64 cm) em MDM: 10:36 Patient medically screened. kdr 18:22 Data reviewed: vital signs, nurses notes, lab test result(s), radiologic studies. kdr Counseling: I had a detailed discussion with the patient and/or guardian regarding: the historical points, exam findings, and any diagnostic results supporting the discharge/admit diagnosis, lab results, radiology results, the need for outpatient follow up. 06/18 08:26 Order name: CBC with Diff; Complete Time: 10:34 kdr 06/18 08:26 Order name: Chem 7; Complete Time: 10:34 [facility] 06/18 08:26 Order name: CT Head Brain wo Cont; Complete Time: 10:34 kdr 06/18 09:26 Order name: CREATININE WHOLE BLOOD; Complete Time: 10:34 EDMS 06/18 09:42 Order name: Brain Wo Cont; Complete Time: 10:34 EDMS Administered Medications: No medications were administered Disposition: 06/18/20 10:36 Discharged to Home. Impression: right sided extremitiy spasms. - Condition is Stable. - Discharge Instructions: Peripheral Neuropathy, Muscle Cramps and Spasms, [id number]. - Medication Reconciliation Form, Thank You Letter form. - Follow up: Private Physician; When: 2 - 3 days; Reason: If symptoms return, Further diagnostic work-up, Recheck today's complaints, Continuance of care, Re-evaluation by your physician. - Problem is new. - Symptoms are resolved. Signatures: Dispatcher [employer] [facility] Gasper Lazcano MD MD kdr Yosef Connors, RN RN em Gale Thapa RN RN jl7 Corrections: (The following items were deleted from the chart) 09:42 08:26 Brain W/Wo Cont+MRI.RAD.BRZ ordered. [facility] 11:03 10:36 06/18/2020 10:36 Discharged to Home. Impression: right sided extremitiy spasms. jl7 Condition is Stable. Forms are Medication Reconciliation Form, Thank You Letter, Antibiotic Education, Prescription Opioid Use. Follow up: Private Physician; When: 2 - 3 days; Reason: If symptoms return, Further diagnostic work-up, Recheck today's complaints, Continuance of care, Re-evaluation by your physician. Problem is new. Symptoms are resolved. kdr
--- NOTE | 2020-06-18 10:37 | ER ---
Nurse's Notes [facility] Name: Meseret Galelgo Age: 65 yrs Sex: Female : 1955 Arrival Date: 06/18/2020 Time: 08: Bed 26 Private MD: Diagnosis: right sided extremitiy spasms Presentation: 06/18 08:22 Chief complaint: EMS states: was at dialysis this morning and started having right em sided tremors, woke up with jarrett. leg pain and took a tramadol, denies any other symptoms, completed 1 hour of dialysis. Coronavirus screen: Client denies travel out of the [place] in the last 14 days. Ebola Screen: Patient negative for fever greater than or equal to 101.5 degrees Fahrenheit, and additional compatible Ebola Virus Disease symptoms Patient denies exposure to infectious person. Patient denies travel to an Ebola-affected area in the 21 days before illness onset. No symptoms or risks identified at this time. Initial Sepsis Screen: Does the patient meet any 2 criteria? No. Patient's initial sepsis screen is negative. Does the patient have a suspected source of infection? No. Patient's initial sepsis screen is negative. Risk Assessment: Do you want to hurt yourself or someone else? Patient reports no desire to harm self or others. Onset of symptoms was June 18, 2020. 08:22 Method Of Arrival: EMS: [facility] em 08: Acuity: CHRISTOPHER 3 em Historical: - Allergies: 08:26 Codeine; em 08: Tape; em - PMHx: 08: Diabetes - IDDM; Hypertension; Hypothyroidism; em - PSHx: 08: Thyroidectomy; neck fusion; back fusion; Carpal Tunnel Repair; ; Knee surgery; em - Immunization history:: Adult Immunizations up to date. - Social history:: Smoking status: Patient denies any tobacco usage or history of. Screenin: Abuse screen: Denies threats or abuse. Nutritional screening: No deficits noted. em Tuberculosis screening: No symptoms or risk factors identified. Fall Risk None identified. Assessment: 08:22 General: Appears in no apparent distress. comfortable, Behavior is calm, cooperative, em appropriate for age. Pain: Complains of pain in right arm and right leg Pain currently is 6 out of 10 on a pain scale. Neuro: Level of Consciousness is awake, alert, obeys commands, Oriented to person, place, time, situation, Denies weakness dizziness. Cardiovascular: Capillary refill < 3 seconds Patient's skin is warm and dry. Dialysis shunt: in the anterior aspect of right upper chest. Respiratory: Airway is patent Respiratory effort is even, unlabored, Respiratory pattern is regular, symmetrical. GI: Patient currently denies nausea, vomiting. Derm: Skin is intact, is healthy with good turgor, Skin is pink, warm \T\ dry. Musculoskeletal: Capillary refill < 3 seconds, Range of motion: intact in all extremities. 10:22 Reassessment: Patient appears in no apparent distress at this time. Patient and/or jl7 family updated on plan of care and expected duration. Pain level reassessed. Patient is alert, oriented x 3, equal unlabored respirations, skin warm/dry/pink. Patient states symptoms have improved. 10:53 Reassessment: Dr. Lazcano at bedside discussing results and POC. [facility] Vital Signs: 08:22 BP 127 / 68; Pulse 72; Resp 18; Temp 97.8; Pulse Ox 100% on R/A; Weight 109.32 kg; em Height 5 ft. 6 in. (167.64 cm); Pain 6/10; 10:15 BP 130 / 63; Pulse 72; Resp 17; Pulse Ox 100% ; Pain 0/10; jl7 08:22 Body Mass Index 38.90 (109.32 kg, 167.64 cm) em ED Course: 08:22 Patient arrived in ED. em 08:24 Gasper Lazcano MD is Attending Physician. kdr 08:25 Triage completed. em 08:26 Arm band placed on. em 08:27 Yosef Connors, PERRI is Primary Nurse. em 08:51 Chem 7 Sent. mh5 08:51 CBC with Diff Sent. mh5 08:51 Initial lab(s) drawn, by ok, sent to lab. Inserted saline lock: 22 gauge in right 5 forearm, using aseptic technique. Blood collected. 08:52 Patient has correct armband on for positive identification. Bed in low position. Call [facility] light in reach. Side rails up X 1. Warm blanket given. Pulse ox on. NIBP on. 09:13 CT Head Brain wo Cont In Process Unspecified. EDMS 10:18 Brain Wo Cont In Process Unspecified. EDMS 11:02 No provider procedures requiring assistance completed. IV discontinued, intact, jl7 bleeding controlled, No redness/swelling at site. Pressure dressing applied. Administered Medications: No medications were administered Outcome: 10:36 Discharge ordered by . malick 11:02 Discharged to home ambulatory. jlKeely 11:02 Condition: stable 11:02 Discharge instructions given to patient, Instructed on discharge instructions, follow up and referral plans. Demonstrated understanding of instructions, follow-up care. 11:03 Patient left the ED. [email or web address] Signatures: Dispatcher [employer] EDDC Gasper Lazcano MD MD kdr Munoz, Edgar, RN RN Sybil Rawls [facility] Gale Thapa RN RN lucina
[2020-06-23 02:35] VITALS: TEMP 97.8; O2SAT 100
[2020-06-23 02:40] VITALS: BP 130/63
== END 2020-06-18 11:03 | disposition home or self-care (01) ==
LOC: ER 08:17
DX: M62.838 Other muscle spasm (principal); I10 Essential (primary) hypertension; Z99.2 Dependence on renal dialysis; Z88.5 Allergy status to narcotic agent; Z91.048 Other nonmedicinal substance allergy status
CPT/HCPCS: 36415; 70450; 70551; 80048; 82565; 85025; 99284

== ENCOUNTER 2020-06-25 06:49 | Observation (INO) | payer OTHER ==
--- OUTSIDE RECORDS SUMMARY | 2020-06-25 06:52 | XMS REPORT | Clinical Summary ---
:1955 Author Organization [facility] Address [address] [place] [address] Care Team Providers Name Role Phone Anders [...] 1 tablet 10 tablet 0 05/14/2020 inophen (Sandy) by mouth 0 5-325 mg per every [...] MD Melanie (Primary Dx) 03/22/2020 Travel after 06/25/2019 Surgical History Surgery Date Site/Laterality Comments LUMBAR [...] Surgeo n: Fred Tolentino MD; L ocation: [facility] Main OR; Servic e: Vascular; Laterality: Left ; CREATION, AV FISTULA, UPPER 05/13/2020 Arm Upper/Left Proc edure: LEFT ARM SECOND EXTREMITY, DISTAL STAGE BASILIC VEIN TRASNPOSITION; Surgeon: Fred Tolentino MD; Location: [facility] OR; Service: Vascula r; Laterality: Left [...] Comments Blood Pressure 108/58 05/14/2020 12:55 PM PROJECT HIRE Pulse 66 05/14/2020 12:55 PM PROJECT HIRE Temperature 36.4 C (97.6 F) 05/14/2020 12:50 PM PROJECT HIRE Respiratory Rate 15 05/14/2020 12:55 PM PROJECT HIRE Oxygen Saturation 94% 05/14/2020 8:47 AM PROJECT HIRE Inhaled Oxygen Concentration - - Weight 111 kg (245 lb) 05/13/2020 11:29 PM PROJECT HIRE Height 167.6 cm (5' 6") 05/13/2020 11:05 AM PROJECT HIRE Body Mass Index 39.54 05/13/2020 11:05 AM PROJECT HIRE Plan of Treatment Health Maintenance Due Date Last Done Comments DIABETES: RETINAL EYE EXAM 02/15/1966 DIABETIC FOOT EXAM 02/15/1966 COVID-19 VACCINE (#1) 1972 CERVICAL CANCER SCREENING 02/15/1977 BREAST CANCER SCREENING 02/15/2006 COLONOSCOPY SCREENING 02/15/2006 SHINGLES VACCINES (#1) 02/15/2006 INFLUENZA VACCINE Completed 05/05/2020 Procedures Procedure Name Priority Date/Time Associated Comments Diagnosis POC GLUCOSE Routine 05/14/2020 1:43 Results for this PM PROJECT HIRE procedure are i n the results section. HEPATITIS B SURFACE Routine 05/14/2020 9:20 Resu lts for this ANTIBODY AM PROJECT HIRE procedure are i n the results section. HEPATITIS B SURFACE AB, Routine 05/14/2020 9:20 Results for this QUANTITATIVE AM PROJECT HIRE procedure are i n the results section. HEPATITIS B SURFACE Routine 05/14/2020 9:20 Resu lts for this ANTIGEN AM PROJECT HIRE procedure are i n the results section. HEMODIALYSIS Routine 05/14/2020 8:33 AM PROJECT HIRE POC GLUCOSE Routine 05/14/2020 7:19 Results for this AM PROJECT HIRE procedure are i n the results section. POC GLUCOSE Routine 05/13/2020 8:43 Results for this PM PROJECT HIRE procedure are i n the results section. POC GLUCOSE Routine 05/13/2020 5:55 Results for this PM PROJECT HIRE procedure are i n the results section. POC GLUCOSE Routine 05/13/2020 2:05 Results for this PM PROJECT HIRE procedure are i n the results section. POC GLUCOSE Routine 05/13/2020 11:11 Results for this AM PROJECT HIRE procedure are i n the results section. KS AN PERIPHERAL BLOCK Routine 05/13/2020 8:50 R esults for this PROCEDURE FOR PAIN AM PROJECT HIRE procedure are in the results section. POC PANEL Routine 05/13/2020 7:32 Results for this AM PROJECT HIRE procedure are i n the results section. ESTIMATED GFR STAT 05/13/2020 7:26 Results fo r this AM PROJECT HIRE procedure are i n the results section. COMPREHENSIVE METABOLIC STAT 05/13/2020 7:26 Results for this PANEL AM PROJECT HIRE procedure are i n the results section. ECG PRE/POST OP Routine 05/11/2020 2:54 Preop testing Results for this PM PROJECT HIRE procedure are i n the results section. PARTIAL THROMBOPLASTIN Routine 05/11/2020 2:36 Preop testing Results for this TIME (PTT) PM PROJECT HIRE procedure are i n the results section. PROTHROMBIN TIME WITH Routine 05/11/2020 2:36 Preop testing R esults for this INR PM PROJECT HIRE procedure are i n the results section. HEMOGLOBIN A1C Routine 05/11/2020 2:36 Preop testing Results for this PM PROJECT HIRE procedure are i n the results section. TYPE AND SCREEN Routine 05/11/2020 2:36 Preop testing Results for this PM PROJECT HIRE procedure are i n the results section. HC COMPLETE BLD COUNT Routine 05/11/2020 2:36 Preop testing R esults for this W/AUTO DIFF PM PROJECT HIRE procedure are i n the results section. COVID-19 QUALITATIVE Routine 05/11/2020 2:36 Preop testing Re sults for this PCR PM PROJECT HIRE procedure are i n the results section. POC GLUCOSE Routine 03/25/2020 9:24 Results for this AM CDT procedure are i n the results section. KS AN PERIPHERAL BLOCK Routine 03/25/2020 9:08 R [...] are i n the results section. after 06/25/2019 Results POC glucose (05/14/2020 1:43 PM PROJECT HIRE)Only the most recent of7 resultswithin the time period is included. Pathologist Sig [facility] POC glucose 173 (H) 65 - 99 mg/dL [facility] Comment: [facility] Mental Health Aide Name: Mao Morrow Device ID: [id number] Chartable: RN Notified Specimen Blood Performing Organization Address City/State/ZIP Code Phon e Number [facility] DEPARTMENT OF PATHOLOGY [address] [facility] [place] [address] AND GENOMIC MEDICINE [facility] [address] [facility] [place] [address] [facility] Hepatitis B surface Ab, quantitative (05/14/2020 9:20 AM PROJECT HIRE) Hepatitis B 17.00 IU/L [facility] surface Ab Comment: The anti-HBs [...] to MMWR June 30, 2005/Vol. 54 (No. 16);1-, and for healthcare workers refer to MMWR Jun/Vol. 62(No. 10);1-19. Reference Interval: anti-HBs 9.99 IU/L or less ....... Negative 10.00 IU/L or greater .... Positive Results greater than 1,000.00 IU/L are reported as gre ater than 1,000.00 IU/L. This assay should not be used for blood donor screenin g, associated re-entry protocols, or for screening Human Cell, Tissues and Cellular and Tissue-Based Products (HCT/P) . Performed By: [facility] [address] [place] [address] Room Service Server: Lori Wooten MD Specimen Serum Performing Organization Address [facility] Phon e Number [facility] [address] [place] [address] [facility] [address] [place] [address] Hepatitis B surface antibody (05/14/2020 9:20 AM PROJECT HIRE) Pathologist Sig nature Hepatitis B surface Reactive (A) Non-reactive [facility] Specimen Blood Performing Organization Address City/[facility] Phon e Number [facility] DEPARTMENT OF PATHOLOGY AND [address] [place] [address] [address] [address] Hepatitis B surface antigen (05/14/2020 9:20 AM PROJECT HIRE) Pathologist Sig nature Hepatitis B surface Non-reactive Non-reactive [facility] Specimen Blood Performing Organization Address [facility] Phon e Number [facility] DEPARTMENT OF PATHOLOGY [id number] [place] [address], [place] [address] [facility] [id number] [place] [address], [place] [address] HOSPITAL Peripheral Block (05/13/2020 8:50 AM PROJECT HIRE) Narrative Performed At Monty Ashley MD 05/13/2020 8:54 AM Peripheral Block Date/Time: 05/13/2020 8:34 AM Performed by: Monty Ashley MD Authorized by: Monty Ashley MD Start Time: 05/13/2020 8:20 AM End Time: 05/13/2020 8:45 AM Reason for Block: at surgeon's request Staff: Anesthesiologist: Essence Ashley MD Resident/CUTTING TABLE OPERATOR FIRST/AA: James Toure Ma, CRNA Performed by: Resident/CUTTING TABLE OPERATOR FIRST/AA Preprocedure: patient identified, IV vicki cked, site [...] 20 mL POC panel (05/13/2020 7:32 AM PROJECT HIRE)Only the most recent of2 resultswithin the time period is included. POC sodium 135 135 - 148 [facility] mmol/L [facility] POC potassium 4.2 3.5 - 5.0 [facility] mmol/L [facility] POC glucose 235 (H) 65 - 99 mg/dL [facility] Comment: [place] Mental Health Aide Name: [facility] Device ID: [id number] POC hemoglobin 11.6 (L) 12.0 - 16.0 [place] [facility] g/dL [facility] POC hematocrit 34 (L) 37 - 47 % [facility] Specimen Blood Performing Organization Address [facility] Phon e Number [facility] DEPARTMENT OF PATHOLOGY [id number] [place] [address] Estimated GFR (05/13/2020 7:26 AM PROJECT HIRE)Only the most recent of2 resultswithin the time period is included. Estimated GFR 15 (A) mL/min/1.73 [facility] Comment: m2 [place] Catergory Units Interpretation HOS PITAL G1 >=90 [...] in 2014. Specimen Plasma Performing Organization Address [facility] Phon e Number [facility] DEPARTMENT OF PATHOLOGY [id number] [place] [address] [address] [address] Comprehensive metabolic panel (05/13/2020 7:26 AM PROJECT HIRE)Only the most recent of2 resultswithin the time period is included. Pathologist Sig nature Sodium 133 (L) 135 - 148 mEq/L [facility] Potassium 4.2 3.5 - 5.0 mEq/L [facility] Chloride 97 (L) 98 - 112 mEq/L [facility] CO2 23 (L) 24 - 31 mEq/L [facility] Anion gap 13@ANIO 7 - 15 mEq/L [facility] BUN 36 (H) 8 - 23 mg/dL [facility] Creatinine 3.07 (H) 0.50 - 0.90 [facility] mg/dL [facility] Glucose 250 (H) 65 - 99 mg/dL [facility] Calcium 9.1 8.8 - 10.2 [facility] mg/dL [facility] Protein 6.4 6.3 - 8.3 g/dL [facility] Albumin 3.8 3.5 - 5.0 g/dL [facility] A/G ratio 1.5 0.7 - 3.8 [facility] Alkaline phosphatase 116 (H) 35 - 104 U/L [facility] AST 21 10 - 35 U/L [facility] ALT 13 5 - 50 U/L [facility] Total bilirubin 0.3 0.2 - 1.2 mg/dL [facility] Specimen Plasma Performing Organization Address [facility] Phon e Number [facility] DEPARTMENT OF PATHOLOGY [address] [facility] [address] AND GENOMIC MEDIC[facility] [address] [facility] [place] [address] HOSPITAL ECG Pre/Post Op (05/11/2020 2:54 PM PROJECT HIRE)Only the most recent of2 resultswithin the time period is included. Pathologist Sig nature Ventricular rate 70 [facility]USE Atrial rate 70 [facility] [place] interval 158 [facility] QRSD interval 92 [...] is no t available. Performing Organization Address [facility] Phon e Number [facility] MUSE [address] [place] [address] COVID-19 qualitative PCR (05/11/2020 2:36 PM PROJECT HIRE)Only the most recent of2 resultswithin the time period is included. Interpretation Negative results do not prec lude 2019-nCoV infection and should not be used as the sole basis for treatment or other patient management decisions. Negative results must be combined with clinical observations, patient history, and epidemiological [place] information. [facility] COVID-19 qualitative Not-Detected Not-Detecte [place] PCR result d [facility] COVID-19 qualitative See link below for [place] PCR PDF Lab [facility] ReportComment: [facility] Number: [id number] Specimen Nasal swab Performing Organization Address City/[facility]/ZIP [facility] Phon e Number [facility] DEPARTMENT OF PATHOLOGY AND [address], [place] [address] [facility] [address] [place] [address] [facility] Partial thromboplastin time, activated (05/11/2020 2:36 PM PROJECT HIRE)Only the most recent of2 resultswithin the time period is included. PTT 28.1 23.0 - 36.0 [facility] Comment: [facility] PTT therapeutic range for unfractionated heparin is HOSPITAL 61.0-112.0 seconds which corresponds to Anti-Xa 0.3-0.7 U/ml. Specimen Blood Performing Organization Address [facility] Phon e Number [facility] DEPARTMENT OF PATHOLOGY [address] [place] [address] Prothrombin time with INR (05/11/2020 2:36 PM PROJECT HIRE)Only the most recent of2 resultswithin the time period is included. Prothrombin time 15.5 (H) 11.5 - 14.5 [facility] INR 1.2 [place] Comment: [facility] International Normalized Ratio (INR) is a therapeu [facility] monitoring tool for patients who are stable on oral anticoagulant therapy. An INR of 2.0-3.0 is suggested for deep vein thrombosis/pulmonary embolism. Specimen Blood Performing Organization Address City/[facility] Phon e Number [facility] DEPARTMENT OF PATHOLOGY [phone] [place] [address] CBC with platelet and differential (05/11/2020 2:36 PM PROJECT HIRE)Only the most recent of2 resultswithin the time period is included. WBC 11.7 (H) 4.5 - 11.0 k/uL [facility] RBC 3.46 (L) 4.20 - 5.50 [facility] m/uL [facility] HGB 10.6 (L) 12.0 - 16.0 [facility] g/dL [facility] HCT 32.2 (L) 37.0 - 47.0 % [facility] MCV 93.1 82.0 - 100.0 fL [facility] MCH 30.6 27.0 - 34.0 pg [facility] MCHC 32.9 31.0 - 37.0 [facility] g/dL [facility] RDW - SD 46.5 37.0 - 55.0 fL [facility] MPV 9.6 6.9 - 11.0 fL [facility] Platelet count 239 150 - 400 K/uL [facility] Nucleated RBC 0.00 /100 WBC [facility] Neutrophils 76.1 (H) 39.0 - 69.0 % [facility] Lymphocytes 14.3 (L) 25.0 - 45.0 % [facility] Monocytes 6.6 0.0 - 10.0 % [facility] Eosinophils 2.3 0.0 - 5.0 % [facility] Basophils 0.3 0.0 - 1.0 % [facility] Immature granulocytes 0.4 0.0 - 1.0 % [facility] Specimen Plasma Performing Organization Address City/[facility] Phon e Number [facility] DEPARTMENT OF PATHOLOGY [phone] [place] [address] AND [place] [address] HOSPITAL Type and screen (05/11/2020 2:36 PM PROJECT HIRE)Only the most recent of2 resultswithin the time period is included. Pathologist Sig nature ABO grouping A [facility] Rh type POS [facility] Antibody screen (gel) NEG [facility] Specimen Plasma Performing Organization Address City/[facility] Phon e Number [facility] DEPARTMENT OF PATHOLOGY [id number] [place] [address] AND GENOMIC MEDICINE [address] Hemoglobin A1c (05/11/2020 2:36 PM PROJECT HIRE) Hemoglobin A1C 8.6 (H) 4.0 - 5.6 % [facility] Comment: [place] HbA1c cutoffs for diagnosing diabetes: HO SPITAL [...] Organization Address City/State/ZIP Code Phon e Number [facility] DEPARTMENT OF PATHOLOGY [address] [facility] [place] [address] AND GENOMIC MEDIC[facility] [address] [facility] [address] HOSPITAL Peripheral Block (03/25/2020 9:08 AM CDT) Narrative Performed At Monty Ashley MD 03/09 9:13 AM Peripheral Block Date/Time: 03/25/2020 7:36 AM Performed by: Monty Ashley MD Authorized by: Monty Ashley MD Patient Location: Pre-op Start Time: 03/25/2020 7:40 AM End Time: 03/25/2020 7:48 AM Reason for Block: primary anesthetic Staff: Anesthesiologist: Essence Ashley MD Resident/CUTTING TABLE OPERATOR FIRST/AA: Brook Hernandez C RNA Performed by: Anesthesiologist [...] suspicious osseous lesions. Os seous degenerative changes. [id number] Procedure Note Interface, Radiology Results Incoming - 03/23/2020 11:39 [...] suspicious osseous lesions. Os seous degenerative changes. [id number] Performing Organization Address City/State/ZIP Code Phon e Number [facility] [address] [place] [address] after 06/25/2019 Insurance Payer Benefit Plan / Subscriber ID Effective Dates Phone Addre ss Type Group MEDICARE MEDICARE PART A [id number] 2020-Present [place], [place] Medicare AND B Advance Directives For more information, please contact: [phone] Type Date Recorded Patient Travel Clerk Explanati on Advance Directives, Living Will 03/23/2020 9:32 AM and Medical Power of Enrichment Assistant
--- OUTSIDE RECORDS SUMMARY | 2020-06-25 06:53 | XMS REPORT | Continuity of Care Document ---
:1955 Author Organization [facility] t Address [address] [place] [address] Dr. Castaneda [address] [place] [address] Care Team Providers Name Role Phone Anders [...] Expiration Date Sour ce Number MEDICAREMEDICARE PART [id number] 2020 Keo basurtoterry Guy AND 00:00:00 [facility] [id number] [place] [facility] Problems Condition Condition Condition Status Onset Resolution [...] Stop Date Source Natural father Heart disease [place] [facility] Natural [facility] Hy[facility] father Thrombophlebitis [place] [facility] Natural mother Diabetes [facility] thodist Natural mother Hyperlipidemia [place] [facility] Natural mother Hypertension [place] [facility] Natural mother Kidney disease [place] [facility] Social History Social Habit Start Date Stop Date Quantity Comments Source History of tobacco Current smoker [facility]ost. [facility] use Sex Assigned At [facility] ethodi Cigarettes smoked 2020-05-14 2020-05-14 [facility] current (pack per 00:00:00 00:00:00 day) - Reported Cigarette 2020-05-14 2020-05-14 [facility] ist pack-years 00:00:00 00:00:00 Tobacco use and 2020-05-14 2020-05-14 Never used [facility] ethodist exposure 00:00:00 00:00:00 Alcohol intake 2020-05-14 2020-05-14 Current drinker [place] [facility] 00:00:00 00:00:00 of alcohol (finding) Alcohol Comment 2020-03-23 2020-03-23 [facility] Smoking Status Start Date Stop Date Source Former smoker 2020-05-14 00:00:00 2020-05-14 00:00:00 [facility] Medications Ordered Filled Start Stop Current [...] 2 more days insulin 2019-07- No 30U [id number] Inject 30 Davila lispro 07-14 [id number] Units Metho di (HUMALOG 15:24: 00:[address] U-100 59 :00 skin 3 INSULIN (three) SUBQ) times a day before meals. insulin 2019-07 Yes 30U [id number] Inject 30 Davila lispro 07-14 [id number] Units Method i (HumaLOG 00:00: 3D under the st U-100 00 skin 3 Insulin) (three) 100 unit/mL times a injection day before meals. HYDROcodone 2019-07 2020- No acute pain 1{tbl} Q8H Take 1 Davila -acetaminop 07-14 tablet by Me elías tabares ([place]) 00:00: 23:[address] 5-325 mg 00 [...] temperature 2020-05-14 12:50:00 36.44 Katharina [place] [facility] Oxygen saturation in 2020-05-14 08:47:59 94 /min Giovanni Parirsh Arterial blood by Pulse oximetry Body weight 2020-05-13 23:29:00 111.131 kg Giovanni Parrish BMI 2020-05-13 23:29:00 39.54 kg/m2 Giovanni Parrish Body height 2020-05-13 11:05:00 167.6 cm Giovanni Parrish Procedures Procedure Date / Time Performing Clinician Source Performed POC GLUCOSE 2020-05-14 13:43:00 ArmondCatracho goldsmith [facility] HEPATITIS B SURFACE 2020-05-14 09:20:00 PrestonElizabet velarde [facility] ANTIGEN HEPATITIS B SURFACE 2020-05-14 09:20:00 SandraElizabet [facility] ANTIBODY HEMODIALYSIS 2020-05-14 08:33:22 PrestonElizabet velarde Davila Meth odist POC GLUCOSE 2020-05-14 07:19:00 ArmondCatrachowalter Davila [facility] POC GLUCOSE 2020-05-13 20:43:00 ArmondCatracho goldsmith Dav[facility] POC GLUCOSE 2020-05-13 17:55:00 ArmondCatracho g[facility]mith [facility] POC GLUCOSE 2020-05-13 14:05:00 ArmondCatracho g[facility]mith [facility] POC GLUCOSE 2020-05-13 11:11:00 ArmondCatracho Giovanni [facility] NM AN PERIPHERAL BLOCK 2020-05-13 08:50:13 [place] [facility] PROCEDURE FOR PAIN Bo Peter POC PANEL [...] (PTT) POC GLUCOSE 2020-03-25 09:24:00 Fred Tolentino NM AN PERIPHERAL BLOCK 2020-03-25 09:08:41 [place] Ashley [...] Future Scheduled 2006-02-15 COLONOSCOPY SCREENING [place] [facility] Test 00:00:00 [code = COLONOSCOPY SCREENING] Future Scheduled 2006-02-15 SHINGLES VACCINES [place] [facility] Test 00:00:00 (#1) [code = SHINGLES VACCINES (#1)] Future Scheduled 1977-02-15 Screening for [place] [facility] Test 00:00:00 malignant neoplasm of cervix (procedure) [code = 199320938] Future Scheduled 1972 COVID-19 VACCINE (#1) [place] [facility] Test 00:00:00 [code = COVID-19 VACCINE (#1)] Future Scheduled 1966-02-15 DIABETES: RETINAL EYE [place] [facility] Test 00:00:00 EXAM [code = DIABETES: RETINAL EYE EXAM] Future Scheduled 1966-02-15 DIABETIC FOOT EXAM [place] [facility] Test 00:00:00 [code = DIABETIC FOOT EXAM] Encounters Start End Encounter Admission Attending Care Care Encounter Source Date/Time Date/Time Type Type Clinicians Facility Department ID 2020-05-13 2020-05-14 [id number] [place] 00:00:00 00:00:00 361 Method i 2020-05-11 2020-05-11 [facility] [id number] [place] 00:00:00 00:00:00 IMRAN 611 Method i 2020-04-01 2020-04-01 [facility] [id number] 06:36:00 10:10:00 Encounter Naveen Garza [id number] Collins Allison [id number] Surgical [id number] [place] 071 2020-04-01 2020-04-01 Anesthesia Demetrio Christensen [facility] [id number] 08:01:00 08:33:00 [facility] [id number] [place] [id number] Surgical [id number] [place] 020 2020-03-25 2020-03-25 Outpatient RANDA, [facility] 021 [id number] [place] 00:00:00 00:00:00 IMRAN 879 Method i 2020-03-23 2020-03-23 [facility]patient [facility] [id number] [place] 00:00:00 00:00:00 IMRAN [address] 2020-03-23 2020-03-23 Outpatient [facility] [id number] [place] 00:00:00 00:00:00 MICHELE, [address] Results Test Description [...] refer to MMWR Decembe r 2004/Vol. 54(No. 16);1-23, and f or healthcare workers refer to MMWR D ecember 2012/Vol. 62(No. 10);1-19 .Reference Interval: anti-HBs 9.99 I U/L or less ....... Dclfydje59.00 I U/L or greater .... PositiveResults greater than 1,000.00 IU/L are report ed as greater than 1,000.00 IU/L. This assay should not be used for blood donor screening, associated re-e ntry protocols, or for screening Human Cell, Tissues and Cellular and Ti ssue-Based Products (HCT/P).Perform ed By: [address] [id number] aboratory Director: MD Giovanni JuanHepatitis B surface [id number] 14:16:56 Test Item Value Reference Range Interpretation Comments Hepatitis B surface Ab (test code = Reactive Non-reactive A 60533-7) Lab Interpretation (test code = Abnormal 23199-0) Giovanni ParrishPOC [id number] 13:44:18 Test Item Value Reference Range Interpretation Comments POC glucose (test code 173 mg/dL 65-99 H Opera tor Name: = 70204-7) Mao Morrow Device ID: [id number] able: RN Notified Lab Interpretation Abnormal (test code = 42976-5) Giovanni MethodistHepatitis B surface [id number] 10:16:56 Test Item Value Reference Range Interpretation Comments Hepatitis B surface Ag (test Non-reactive Non-reactive code = 5195-3) Davila MethodistPOC [id number] 13:05:15 Test Item Value Reference Range Interpretation Comments POC sodium (test code = 135 mmol/L 427-742 2940-0) POC potassium (test 4.2 mmol/L 3.5-5 code = 6298-4) POC glucose (test code 235 mg/dL 65-99 H Opera tor Name: = 2339-0) Rabago EdilmailiGavinice ID : [id number] POC hemoglobin (test 11.6 g/dL 12-16 L code = 718-7) POC hematocrit (test 34 % 37-47 L code = 4544-3) Lab Interpretation Abnormal (test code = 37311-0) Davila MethodistPeripheral [id number] 08:50:13Bo Ashley MD 05/13/2020 8:54 AMPeripheral Block Date/Time: 05/13/2020 8:34 AMPerformed by: Bo Ashley MDAuthorized by: Bo Ashley MD Start Time:05/13/2020 8:20 AMEnd Time: 05/13/2020 8:45 AMReason for Block: at surgeon's request Staff: Anesthesiologist: Bo Ashley MD Resident/MAGNET PLACER/AA: James Toure CRNA Performed by: Resident/MAGNET PLACER/AAPreprocedure: patient identified, IV checked, site and side [...] ropivacaine.Medications AdministeredRopivacaine 0.5 % PF (mL), [facility] MethodistComprehensive metabolic [id number] 07:59:23 Test Item Value Reference Range Interpretation Comments Sodium (test code = 2951-2) 133 135- 148 mEq/L L Potassium (test code = 2823-3) 4.2 3.5- 5.0 mEq/L Chloride (test code = 2075-0) 97 98- 112 mEq/L L CO2 (test code = 2027-9) 23 24- 31 mEq/L L Anion gap (test code = 26466-8) 13@ANIO 7- 15 mEq/L BUN (test code = 3094-0) 36 mg/dL 8-23 H Creatinine (test code = 2160-0) 3.07 mg/dL 0.5-0.9 H Glucose (test code = 2345-7) 250 mg/dL 65-99 H Calcium (test code = 12788-9) 9.1 mg/dL 8.8-10.2 Protein (test code = [...] 1974-08) Lab Interpretation (test code = Abnormal 11114-8) Giovanni MethodistEstimated [id number] 07:59:23 Test Item Value Reference Range Interpretation Comments Estimated GFR (test 15 mL/min/1.73 m2 A Caterg libby Units code = 5488) InterpretationG 1 >=90 Keiry l or highG2 60-89 Mildly decrease dG3a 45-59 Mil dly to moderately decr pezjfF0k 30-44 Moderately to s everely decreasedG4 15-29 Severe ly decreasedG5 <15 Kidney davis lureThe eGFR was calcul ated using the Chron Kidney Disease Epidemiology Collaboration ( CKD-EPI) equation. Interpretation is based on recommendati ons of the National [facility] ey Disease Outcome s Quality Initiat hermes (NKF-KDOQI) [facility] in 2013. Lab Interpretation Abnormal (test code = 78129-6) Giovanni KitchenistCOVID-19 qualitative [id number] 01:15:52 Test Item Value Reference Range Interpretation Comments Interpretation (test Negative results do code = 7582408) not preclude 2019-nCoV infection and should not be used as the sole basis for treatment or other patient management decisions. Negative results must be combined with clinical observations, patient history, and epidemiological information. COVID-19 qualitative Not-Detected Not-Detected PCR result (test code = 41086-4) COVID-19 qualitative See link below for C ase Number: PCR (test code = PDF Lab Report [id number]) Giovanni MethodistType and [id number] 18:16:00 Test Item Value Reference Range Interpretation Comments ABO grouping (test code = 883-9) A Rh type (test code = 71568-2) POS Antibody screen (gel) (test code = NEG 890-4) Giovanni MethodistPartial thromboplastin time, [id number] 15:59:01 Test Item Value Reference Range Interpretation Comments PTT (test code = 28.1 23.0- 36.0 sec PTT thera peutic range for 3173-2) unfractionated heparin is61.0-112.0 se conds which corresponds to Anti-Xa0.3-0.7 U/ml. Davila MethodistHemoglobin [id number] 15:58:56 Test Item Value Reference Range Interpretation Comments Hemoglobin A1C (test 8.6 % 4-5.6 H HbA1c c utoffs for code = 65744-1) diagnosing diabetes:4.0% - 5.6% = normal5.7% - 6.4% = increased risk for diabetes (prediabetes)9> =6.5% = suliuxhg3Qmwa s for glycemic contro l (ADA 2016)< 7.0% Ta rget for non adults with pearl betes. More or less stringent targe ts may be appropriate for individual omaira ents. <7.5% Target for Children and adolescents wit h type 1 diabetes. Lab Interpretation (test Abnormal code = 74753-1) Davila MethodistProthrombin time with [id number] 15:58:18 Test Item Value Reference Range Interpretation Comments Prothrombin time (test 15.5 11.5- 14.5 sec H code = 5902-2) INR (test code = 1.2 The Interna tional 35690-2) Normalized Rati o (INR) is a therapeuti c monitoring tool for patients who ar e stable on oral anticoagulant t herapy. An INR of 2.0-3 .0 is suggested for d eep vein thrombosis/pulm onary embolism. Lab Interpretation Abnormal (test code = 34831-3) Davila MethodistCBC with platelet and [id number] 15:47:50 Test Item Value Reference Range Interpretation Comments WBC (test code = 93262-9) 11.7 4.5- 11.0 k/uL H RBC (test code = 26384-3) 3.46 m/uL 4.2-5.5 L HGB (test code = 718-7) 10.6 g/dL 12-16 L HCT (test code = 4544-3) 32.2 % 37-47 L MCV (test code = 787-2) 93.1 fL 82-100 MCH (test code = 785-6) 30.6 pg 27-34 MCHC (test code = 786-4) 32.9 g/dL 31-37 RDW - SD (test code = 85742-4) 46.5 fL 37-55 MPV (test code = 32487-5) 9.6 fL 6.9-11 Platelet count (test code = 239 K/uL 150-400 19445-6) Nucleated RBC (test code = 31133-2) 0.00 /100 WBC Neutrophils (test code = 60294-0) 76.1 % 39-69 H Lymphocytes (test code = 09856-8) 14.3 % 25-45 L Monocytes (test code = 20676-1) 6.6 % 0-10 Eosinophils (test code = 43876-2) 2.3 % 0-5 Basophils (test code = 49585-9) 0.3 % 0-1 Immature granulocytes (test code = 0.4 % 0-1 19760-6) Lab Interpretation (test code = Abnormal 30399-0) Giovanni KitchenistECG Pre/Post [id number] 15:43:26 Test Item Value Reference Range Interpretation Comments Ventricular rate (test 70 code = 253) Atrial rate (test code 70 = 255) NM interval (test code 158 = 266) QRSD [...] of 23-MAR-2020 10:47,-No significant change was found- Giovanni MethodistPeripheral [id number] 09:08:41WBo tyler MD 03/25/2020 9:13 AMPeripheral BlockDate/Time: 03/25/2020 7:36 AMPerformed by: Bo Ashley MDAuthorized by: Bo Ashley MD Patient Location: Pre-opStart Time: 03/25/2020 7:40 AMEnd Time: 03/25/2020 7:48 AMReason for Block: primary anesthetic Staff: Anesthesiologist: Bo Ashley MD Resident/MAGNET PLACER/AA: Brook Hernandez,MAGNET PLACER Performed by: AnesthesiologistPreprocedure: patient identified, IV checked, [...] stimulator.Medications AdministeredRopivacaine 0.5 % PF (mL), 15 mLHouston MethodistXR Chest 2 [id number] 11:36:18Hm Interface, Radiology Results 03/23/2020 11:39 AM [...] Bones: No suspicious osseous lesions. Osseous degenerative changes.[facility]-[id number] [facility]
--- NOTE | 2020-06-25 08:56 | RAD REPORT ---
EXAM DESCRIPTION: RAD - Chest Pa And Lat (2 Views) - 06/25/2020 8:21 am CLINICAL HISTORY: epigastric pain COMPARISON: November 17 TECHNIQUE: Frontal and lateral views of the chest were obtained. FINDINGS: The lungs are underinflated. No peripheral mass or consolidations seen. Patient has chroni c interstitial opacification that is not clearly different from comparison. Trachea is midline. Double-lumen dialysis catheter in place. For catheter tips overlie the right at rium and distal most SVC. Line has probably been replaced since the November comparison. Heart size is normal and central vasculature is within normal limits. No pleural effusion or pneumot horax seen. No acute bony finding noted. No aortic abnormality. IMPRESSION: Mild chronic interstitial opacification similar to comparison. No peripheral mass or consolidation. No significant failure or volume overload.
[2020-06-25 08:58] LABS: Absolute Lymphocytes (CBC) 1.1 K/uL (0.7-4.9); Basophils % 1.1 % (0-1.3); Hematocrit 28.2 % (36.0-45.0); Lymphocytes % 11.1 % (15.3-44.8); MPV 7.4 fL (7.6-11.3); RBC Red Blood Cell Count 3.18 M/uL (3.86-4.86)
[2020-06-25 09:19] LABS: ALT/SGPT 18 U/L (12-78); AST/SGOT 13 U/L (15-37); Albumin 3.3 g/dL (3.4-5.0); Alkaline Phosphatase 121 U/L (45-117); BUN Blood Urea Nitrogen 74 mg/dL (7-18); Bicarbonate 24 mmol/L (21-32); Bilirubin Direct < 0.1 mg/dL (0-0.2); Bilirubin Total 0.7 mg/dL (0.2-1.0); Glucose Level 290 mg/dL (74-106); Lipase 237 U/L (73-393); Potassium 4.6 mmol/L (3.5-5.1); Protein, Total 7.5 g/dL (6.4-8.2); Sodium Level 137 mmol/L (136-145); Troponin (Emerg Dept Use Only) 0.07 ng/mL (0.0-0.045)
[2020-06-25] MEDS ORDERED: MAGNES/ALUMIN/SIMET 30ML UCUP ONE (09:20)
[2020-06-25] MEDS ORDERED: LIDOCAINE VISCOUS 2% SOLN 15 ML UDC ONE (09:20)
[2020-06-25] MEDS ORDERED: PROMETHAZINE INJ 25 MG/ML AMP ONE (09:20)
[2020-06-25] MEDS ORDERED: DIPHENHYDRAMINE 50 MG/ML VIAL ONE (09:45)
[2020-06-25] MEDS ORDERED: BENZTROPINE 2 MG/2 ML VIAL ONE ×2 (10:09→10:53)
[2020-06-25] MEDS ORDERED: LORazepam 2 MG/ML VIAL ONE (10:37)
--- NOTE | 2020-06-25 11:14 | RAD REPORT ---
EXAM DESCRIPTION: CT - Head Brain Wo Cont - 06/25/2020 10:49 am CLINICAL HISTORY: TWITCHING ADN SLURRED SPEACH, transient alteration of mental status COMPARISON: Head Brain Wo Cont dated 06/18/2020 TECHNIQUE: Axial 5 mm thick images of the head were obtained without IV contrast. All CT scans are performed using dose optimization technique as appropriate and may include automated exposure control or mA/KV adjustment according to patient size. FINDINGS: No intracranial hemorrhage, mass, edema or shift of mid-line structures. No acute cortical based infarction identified. There is slight motion degradation that limits detail. No cortical debra a or sulcal effacement suspected. Atrophy changes are mild. Ventricles are in proportion. No abnormal extra-axial fluid collections. Chronic ischemic changes suspected but difficult to evaluate. Mastoid air cells and visualized portions of the paranasal sinuses are clear. No acute bony findings. IMPRESSION: Motion degraded study shows no hemorrhage, mass or significant intracranial finding. Patient likely has mild atrophy and chronic ischemic change. Significant change from June 19 is n ot suspected.
--- NOTE | 2020-06-25 11:16 | RAD REPORT ---
EXAM DESCRIPTION: CT - Abdomen Pelvis Wo Contrast - 06/25/2020 10:51 am CLINICAL HISTORY: ABD PAIN COMPARISON: No comparisons TECHNIQUE: Axial [address] imaging of the abdomen and pelvis was performed without IV contrast. No IV contrast was given because of allergy, abnormal renal function, patient refusal or physician re quest. No oral contrast given. All CT scans are performed using dose optimization technique as appropriate and may include automated exposure control or mA/KV adjustment according to patient size. FINDINGS: Exam has substantial motion degradation artifact throughout. No acute lung base finding. The liver, spleen and pancreas show no suspicious findings on non-contrast imaging. No biliary tree d ilatation. Gallbladder is grossly normal. Gallstones can be occult on CT imaging. No hydronephrosis identified. Right kidney is incompletely rotated as a normal variant. Left kidney i s atrophic relative to the right. No gross abnormality seen. No significant adrenal finding. Isodens e renal masses and pyelonephritis cannot be excluded in the absence of IV contrast. Mostly contracted urinary bladder shows no suspicious finding. No uterine or ovarian gross abnormality seen. No dilated bowel loops identified. Stomach is decompressed. No obstruction pattern seen. The motion l imits assessment of enteritis with only gross abnormalities assessed on this study. No free air, jacklyn e fluid or inflammatory stranding. No hernia, mass or bulky lymphadenopathy. Abdominal wall assessmen t is very limited. Degenerative and postsurgical bony changes are present. No gross bone deformity seen. IMPRESSION: Significantly motion degraded study showing no acute or emergent finding. Full assessment is limited is the absence of IV contrast.
[2020-06-25] MEDS ORDERED: ACETAMINOPHEN 500 MG TAB PO PRN (12:00)
[2020-06-25] MEDS ORDERED: D5 0.45 NS 1,000 ML IV SCH (12:00)
[2020-06-25] MEDS ORDERED: ONDANSETRON 4 MG/2 ML VIAL IV PRN (12:00)
[2020-06-25] MEDS ORDERED: DIAZEPAM 10 MG/2 ML INJ SYRINGE ONE (12:13)
[2020-06-25 16:22] VITALS: BMI 38.9
--- NOTE | 2020-06-25 18:31 | CON ---
Reason For Consultation: Consultation called by Dr. Johnson because of extra upper lower extremity move ments following the patient receiving Phenergan. History Of Present Illness: Ms. Gallego is a 65-year-old patient with history of tremors, who had a r ecent emergency room visit to [facility] on June 18 with tremors. The patient reporte antonella woke up with pain in both arms, took tramadol, and started having right-sided tremors. The patie nt is a dialysis patient and was at dialysis when this occurred and this was on June 18. She w as discharged home after evaluation by head CT scan and the brain MRI showing no acute ischemic or he morrhagic changes. She did have mild diffuse atrophy and her blood work revealed chronic anemia, lik fern related to chronic kidney disease. Coagulation panel was unremarkable. She went back home and a pparently did well. She came back today, this is the , to the emergency room and received the Ph energan for report of the GI issues and within perhaps 15 or so minutes began to have extra arm and l eg movements, and was disoriented. She was treated with Valium, Cogentin, and Benadryl, but the extr a movements continued. At the time of my evaluation, the patient was resting in bed. She did follow my instructions after repeated encouragement. There were extra riding movements. Dyskinetic in upp er and lower extremities, and she did not have any increased tone, she did not have any tonic or clon ic activity, and did not have tongue biting. She had a head CT scan that showed no acute ischemic or hemorrhagic change. Abdomen and pelvis CT scan was motion degraded, but no significant abnormalitie s reported. Laboratory studies show creatinine 3.9, glucose of 234, and liver function studies showe d slightly elevated alkaline phosphate is 121. Past Medical History: Insulin-dependent diabetes mellitus, hypertension, chronic renal insufficiency on hemodialysis 3 times a week, hypothyroidism. Past Surgical History: Thyroidectomy, neck surgery for fusion, carpal tunnel surgery, , kne e surgery, dialysis access. Allergies: CODEINE AND TAPE. Family History: Noncontributory. Current Medications: She has Cogentin, Valium, Benadryl, and did receive Phenergan earlier. Review of Systems: Unable to get a full review of systems, however, she did not have any fevers or chills and no rash, n o focal weakness in the face, arm, or leg. Physical Examination: Vital Signs: Blood pressure 130/63, pulse 72, respiratory rate 16, temperature 97.8, oxygen saturati on 95%. General: Ms. Gallego is resting in bed. She does have extra riding movements in the arms and legs, b ut can express them briefly. HEENT: She is normocephalic, atraumatic. Sclerae anicteric. Oropharynx is moist and pink. Neck: Supple. Chest: Clear. Heart: Regular. Extremities: No edema or cyanosis. Neurological: She does follow simple commands with repeated instructions. In terms of her visual fi elds, she respond to threats equally well. Face is symmetric on smiling. On motor examination, unab le to fully assess strength, but she has normal tone in the upper and lower extremities. She moves u pper and lower extremities equally well. She appears to respond equally well to sensation in upper a nd lower extremities. Reflexes are symmetric and depressed. Assessment: Ms. Gallego is a 65-year-old patient with dyskinesia, possibly after Phenergan. She is a hemodialysis patients and likely will have continued affects until dialysis is completed later today . She has comorbid conditions as mentioned, which are monitored by primary team. She should be eval uated for the possibility of developing neuroleptic malignant syndrome that may be heralded by increa sed stiffness, high fever, tachycardia, and would require potential treatment with muscle relaxants i f that develops. At this point, not likely to develop, but it is a possibility. This was discussed with the patient's primary physician, Dr. Johnson, and again she will be overnight in the hospital after dialysis and should be able to recover from the effects of Phenergan. It should be noted that in family history, the emergency room physician mentioned that the patient's sister had a simila r reaction to Phenergan. LB/MODL Voice ID: [id number] Report ID: [id number]
[2020-06-25] MEDS ORDERED: DIPHENHYDRAMINE 25 MG TAB/CAP PO ONE (20:34)
[2020-06-25] MEDS ORDERED: LORazepam 2 MG/ML VIAL IV PRN (20:36)
[2020-06-25] MEDS ORDERED: D50W 25 GM/50 ML SYRINGE IV PRN (20:38)
[2020-06-25] MEDS ORDERED: GLUCAGON 1 MG/VIAL IM PRN (20:38)
[2020-06-25] MEDS ORDERED: ASPIRIN 325 MG TAB PO ONE (20:46)
[2020-06-25] MEDS: INSULIN -REGULAR HUMAN 50 UNIT/0.5 ML ML SQ SCH (20:56)
[2020-06-25] MEDS ORDERED: ASPIRIN EC 325 MG TABLET PO SCH (21:00)
[2020-06-25 21:03] VITALS: O2SAT 96
[2020-06-26 05:49] LABS: Absolute Lymphocytes (CBC) 1.4 K/uL (0.7-4.9); Basophils % 0.8 % (0-1.3); Hematocrit 26.8 % (36.0-45.0); Lymphocytes % 11.8 % (15.3-44.8); MPV 7.2 fL (7.6-11.3); RBC Red Blood Cell Count 3.01 M/uL (3.86-4.86)
[2020-06-26] MEDS ORDERED: METOPROLOL XL 50 MG TAB PO SCH (06:00)
[2020-06-26 06:01] LABS: Potassium 4.5 mmol/L (3.5-5.1)
[2020-06-26] MEDS ORDERED: PANTOPRAZOLE 40MG TABLET PO SCH (07:30)
[2020-06-26] MEDS: INSULIN -REGULAR HUMAN 50 UNIT/0.5 ML ML SQ SCH ×2 (07:30→11:30)
[2020-06-26] MEDS ORDERED: allopurinoL 100 MG TAB PO SCH (09:00)
[2020-06-26] MEDS ORDERED: BUPROPION HCL XL 150 MG TAB PO SCH (09:00)
[2020-06-26] MEDS: ALBUMIN HUMAN 25% 50 ML IV ONE ×2 (11:00→11:05)
--- NOTE | 2020-06-26 11:29 | HP ---
Date of Admission: 06/25/2020 Chief Complaint: Heartburn, indigestion, and shoulder pain. History Of Present Illness: This is a 65-year-old female patient, who came into emergency room about 1 week ago with right arm jerking and she was discharged from emergency room. Today, she comes into emergency room with heartburn, indigestion, some epigastric discomfort, and right shoulder pain. Af ter she was evaluated in the ER, she was given Phenergan for her nausea symptoms and she started to h ave tardive dyskinesia. She was given Benadryl and Cogentin in the emergency room that did not help and subsequently she was given Ativan and she was still having symptoms, so I was contacted and she w as admitted to the hospital. I saw her in the emergency room. Allergies: TO CODEINE AND ADHESIVE TAPE, AND SHE SHOULD BE LISTED ALLERGIC TO PHENERGAN WELL. Medications: List reviewed. Review of Systems: GI: As mentioned above. 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 All other systems reviewed and negative. Past Medical History: Significant for diabetes mellitus with diabetic neuropathy, diabetic retinopat hy, and diabetic nephropathy leading to end-stage renal disease, now on hemodialysis; hypertension; h yperlipidemia. Past Surgical History: AV fistula placement. Family History: Mother has hypertension, chronic kidney disease, hyperlipidemia. Social History: Negative for smoking and alcohol use. Physical Examination: Vital Signs: Temperature 97.5, pulse 79, respiratory rate 18, blood pressure 124/69, oxygen saturati on 95%, height 5 feet 6 inches, weight 241 pounds. General: Awake, alert, oriented, not in distress. HEENT: Head atraumatic, normocephalic. Conjunctivae nonerythematous. Sclerae white. Mouth, no thr ush or edema noted. Ears/Nose, no mass, lesion, discharge noted. Neck: Supple. No JVD, lymph nodes, bruit, thyromegaly noted. Lungs: Bilateral good equal air entry. Clear to auscultation. No rhonchi. No rales. Heart: Normal heart sounds, no murmur or gallop. Abdomen: Soft, bowel sounds normal. No guarding, rigidity, tenderness, mass, hepatosplenomegaly, di stention, or bruit noted. Extremities: No leg edema. No calf tenderness. Skin: No rash, ulcer, cellulitis. Lymphatics: No lymph node enlargement in neck, supraclavicular, infraclavicular region. Neuro: The patient was noted to have involuntary movements of all extremities. Chest: Unremarkable. External Genitalia: Deferred. Rectal: Deferred. Laboratory Data: Sodium 137, potassium 4.6, chloride 102, bicarb 24, BUN 74, creatinine 3.90, glucos e 290. Liver function tests unremarkable. Troponin 0.07. CAT scan of abdomen and pelvis, no acute changes noted. CAT scan of the head, no acute intracranial changes noted. Chest x-ray mild chronic interstitial opacifications, similar to comparison. White count 10.2, hemoglobin 9.8, platelets 203. Impression: 1.Tardive dyskinesia secondary to Phenergan. 2.End-stage renal disease, on hemodialysis. 3.Hypertension. 4.Hyperlipidemia. 5.Diabetes mellitus with diabetic retinopathy, diabetic neuropathy, and diabetic nephropathy. 6.Anemia due to chronic kidney disease. Plan: We will go ahead and admit the patient to hospital. The patient is appropriate for observatio n. The patient has received Benadryl, Cogentin, and Ativan in the emergency room and we will continu e this as needed. Consult Dr. Shook and details were discussed with him as well. We will consult software support technician for her dialysis support and I will see her tomorrow for followup. CATHI/MODL Voice ID: [id number]
[2020-06-26 13:52] VITALS: BP 106/54; TEMP 97.1
--- NOTE | 2020-06-26 14:01 | EKG ---
Test Date: 2020-06-25 Test Time: 07:37:58 Pre Press Manager: SWG MEASUREMENT RESULTS: Intervals: Rate: 80 OR: 170 QRSD: 96 QT: 364 QTc: 419 Murdock: P: 65 OR: 170 QRS: 43 T: 79 INTERPRETIVE STATEMENTS: Normal sinus rhythm Nonspecific ST abnormality Abnormal ECG Compared to ECG 11/21/2019 07:42:04 Atrial fibrillation no longer present ST (T wave) deviation still present Electronically Signed On 06-26-20 13:58:39 PERSONAL FINANCIAL REPRESENTATIVE by William Uribe
--- NOTE | 2020-06-27 14:11 | CON ---
Date of Consultation: 06/26/2020 Chief Complaint: End-stage renal disease, diabetic nephropathy, hypertensive heart and kidney diseas e, fluid overload, generalized weakness. History Of Present Illness: The patient is a 65-year-old woman, who has multiple medical problems in cluding history of hypertensive heart and kidney disease, diabetic kidney disease, end-stage renal di sease, hyperlipidemia, diabetic retinopathy. She came to the hospital because of chest pain, shoulde r pain, and tremors. She was hospitalized and during this admission, she was seen by neurologist for tardive dyskinesia and tremors. She was given Phenergan for nausea symptoms and then she started ta rdive dyskinesia symptoms. She was given subsequently Benadryl and Cogentin in the emergency room an d Ativan was used to alleviate symptoms of tardive dyskinesia. The patient was complaining primarily of shoulder pain and was having symptoms of heartburn and indigestion. Cardiac workup was initiated to rule out acute coronary syndrome. Dialysis was ordered to control volemia and prevent decompensa matthew congestive heart failure. Nephrology consultation was requested to adjust dialysis. The patient was hemodynamically stable. She denied shortness of breath, although she was complaining of generalized weakness and discomfort in the shoulder and in the abdomen and precordial area. The chest pain was intermittent and resolved. Review of Systems: General: Denies fever, chills. Eyes: Denies vision changes. Ears, Nose, Mouth, and Throat: Denies sore throat or earache. Respiratory: Denies PND or orthopnea. Cardiovascular: Denies chest pain at this time. Denies syncope. GI: Has symptoms of heartburn. : Denies dysuria or hematuria. Musculoskeletal: Denies muscle aches or joint swelling. She developed symptoms of tardive dyskinesi a which was controlled with medications. All other systems reviewed and all are negative. Past Medical History: Diabetes mellitus, diabetic kidney disease, diabetic neuropathy, neuropathy, r etinopathy, on hemodialysis 3 times per week, hypertension, hypertensive heart and kidney disease, ob esity, and hyperlipidemia. Past Surgical History: AV fistula placement. Family History: Mother had hypertension, chronic kidney disease, and hyperlipidemia. Social History: Denies tobacco, alcohol, or illicit drugs. Physical Examination: Vital Signs: Temperature 97.5, heart rate 79, respiratory rate 18, blood pressure 124/69, SpO2 95%. Weight 241 pounds and height 5 feet 6 inches. General: Awake, alert, follows commands. Eyes: Anicteric sclerae. EOMI. Ears, Nose, Mouth and Throat: Oral mucosa moist. No pallor. Neck: Supple. No bruits. Lungs: Diminished breath sounds at bases. Heart: S1, S2. No pericardial friction rub. A 2/6 systolic murmur in left lower sternal border. Abdomen: Obese, soft, nontender. No rebound. No guarding. Extremities: No edema. No clubbing. No cyanosis. No cellulitis. Chest: Normal respiratory effort. Neurologic: Cranial nerves intact. Currently, no tremors. Laboratory Data: Sodium 137, potassium 4.6, chloride 102, CO2 of 24, BUN 74, creatinine 3.9, glucose 298. Troponin 0.07. CT scan of the abdomen and pelvis, no acute changes. CT scan of the head, no acute intracranial changes. White count 10.2, hemoglobin 8, platelet count 203. Chest x-ray, chroni c interstitial opacification similar compared to x-ray. Impression: 1.End-stage renal disease, fluid overload, congestive heart failure with diastolic dysfunction, hype rtensive heart and kidney disease, dialysis was done to control volemia and prevent congestive heart failure exacerbation. 2.Hypertension. Blood pressure is currently in acceptable control. Continue low-sodium diet and cu rrent blood pressure medications. 3.Tardive dyskinesia. The patient was treated and symptoms subsiding. 4.Anemia. Hemoglobin is 9.8. Continue XENIA, monitor hemoglobin level, and adjust medications. 5.Renal osteodystrophy. Continue renal diet and binders. 6.During dialysis, the patient was hemodynamically stable, does not have tardive dyskinesia symptoms and tolerated ultrafiltration and goal to control congestive heart failure. EB/MODL Voice ID: [id number] Report ID: [id number]
--- NOTE | 2020-07-05 06:06 | DS ---
Date of Discharge: 06/26/2020 Disposition: Discharged to go home. Physical Examination: HEENT: Unremarkable. LUNGS: Clear to auscultation. HEART: Sounds normal. ABDOMEN: Soft. Bowel sounds normal. No guarding, rigidity, tenderness, distention. EXTREMITIES: No leg edema. Impression: Today white count 12, hemoglobin 9.2, platelets 200. Final Diagnoses: 1. Tardive dyskinesia secondary to Phenergan, resolved. 2. End-stage renal disease, on hemodialysis. 3. Diabetes mellitus with chronic kidney disease. 4. Diabetes mellitus with diabetic retinopathy. 5. Diabetes mellitus with neuropathy. 6. Hypertension. 7. Hyperlipidemia. Discharge Medications And Instructions: 1. Continue all prior home medications and take famotidine 40 mg p.o. at bedtime. 2. Follow up at my office on 06/30/2020 and call office on 06/28/2020 for appointment. Hospital Course: This is a 65-year-old very pleasant female patient, admitted to the hospital after she came into emergency room with heartburn, indigestion, some epigastric discomfort, and right shoulder pain. Please see dictated H and P for more information. The patient came into ER and she received Phenergan for nausea and she started to have tardive dyskinesia problem. Initially, she was given Benadryl that did not help, then Cogentin was given that did not help, subsequently Ativan was given and that did not help either and she was admitted to hospital. Neurology consultation was obtained. Nephrology consultation was requested for her dialysis support. The patient was kept in the hospital overnight and with treatment tardive dyskinesia resolved overnight and on the day of discharge she was back to her usual self and I have asked her that she should label herself as allergic to Phenergan and she should not use that medication in the future and she understands that. She takes pantoprazole 40 mg daily in the morning and still has lot of heartburn and indigestion complaints, so we will add famotidine at bedtime and see how she responds to that. Her CAT scan of abdomen did not show any acute changes, but we will consider doing abdominal ultrasound on outpatient basis. CATHI/MODL Voice ID: [id number] Report ID: [id number]
== END 2020-06-26 15:27 | disposition home or self-care (01) ==
LOC: ER 06:49 → ERHOLD 12:05 → 2ND 15:43
PROVIDERS: ADMIT Internal Medicine; ATTEND Internal Medicine
DX: G24.01 Drug induced subacute dyskinesia (principal); T42.6X5A Adverse effect of other antiepileptic and sedative-hypnotic drugs, initial encounter; I13.2 Hypertensive heart and chronic kidney disease with heart failure and with stage 5 chronic kidney disease, or end stage renal disease; I50.30 Unspecified diastolic (congestive) heart failure; E11.22 Type 2 diabetes mellitus with diabetic chronic kidney disease; N18.6 End stage renal disease; Z20.828 Contact with and (suspected) exposure to other viral communicable diseases; Z99.2 Dependence on renal dialysis; D63.1 Anemia in chronic kidney disease; E11.40 Type 2 diabetes mellitus with diabetic neuropathy, unspecified; E11.319 Type 2 diabetes mellitus with unspecified diabetic retinopathy without macular edema; E78.5 Hyperlipidemia, unspecified; E66.9 Obesity, unspecified; R94.31 Abnormal electrocardiogram [ECG] [EKG]; N25.0 Renal osteodystrophy
CPT/HCPCS: 93005; 85025 ×2; 80048 ×2; 36415; 82947 ×4; 80076; 84484; 83690; 70450; 74176; 71046; 90935; J2550; J0515 ×2; J1200; J3360; J1644; P9047; J7799; 96374; 96375; 99285; G0257; G0378

== ENCOUNTER 2020-08-03 08:59 | Emergency (ER) | payer MEDICARE, OTHER ==
--- OUTSIDE RECORDS SUMMARY | 2020-08-03 10:05 | XMS REPORT | Clinical Summary ---
:1955 Author Organization [facility] [employer] Address [address] [place] [address] Care Team Providers Name Role Phone Anders [...] 1 tablet 10 tablet 0 05/14/2020 inophen (Moran) by mouth 0 5-325 mg per every 8 tabletIndications: (eight) hours acute pain as needed for moderate pain for up to 3 days .acute pain. Max Daily Amount: 3 tablets Active Problems Problem Noted Date ESRD (end stage renal disease) on dialysis 05/13/2020 Encounters Date Type Specialty Care Team Description 05/13/2020 Surgery General Surgery Fred Tolentino LEFT ARM SECOND STAGE MD Melanie BASILIC VEIN TRASNPOSITION 05/13/2020 Anesthesia Event General Surgery Monty Ashley MD Cheema, Ivelisse, FNP 05/13/2020 - Hospital Encounter General Internal Fred Tolentino 05/14/2020 Medicine TMD Armond Girard Salman Siraj, MD 05/11/2020 Pre-Admission Pre-Admission Fred Tolentino Preop adri ting Testing Testing MD Mleanie (Primary Dx) 05/10/2020 Travel 03/25/2020 Anesthesia Event General Surgery Monty Ashley MD Cheema, IvelisseNILE 03/25/2020 Surgery General Surgery Fred Tolentino Left 1st stage MD Melanie basilic vein transposition f istula 03/25/2020 Hospital Encounter General Surgery Fred Tolentino MD 03/23/2020 Hospital Encounter Radiology Gabi, Preop t esting Monty Peter MD 03/23/2020 Pre-Admit Testing Pre-Admission Fred Tolentino Preop testing Appointment Testing MD Melanie (Primary Dx) 03/22/2020 Travel after 08/03/2019 Surgical History Surgery Date Site/Laterality Comments LUMBAR [...] Surgeo n: Fred Tolentino MD; L ocation: [facility] Main OR; Servic e: Vascular; Laterality: Left ; CREATION, AV FISTULA, UPPER 05/13/2020 Arm Upper/Left Proc edure: LEFT ARM SECOND EXTREMITY, DISTAL STAGE BASILIC VEIN TRASNPOSITION; Surgeon: Fred Tolentino MD; Location: [facility] OR; Service: Vascula r; Laterality: Left [...] Comments Blood Pressure 108/58 05/14/2020 12:55 PM SYSTEM TRAINER Pulse 66 05/14/2020 12:55 PM SYSTEM TRAINER Temperature 36.4 C (97.6 F) 05/14/2020 12:50 PM SYSTEM TRAINER Respiratory Rate 15 05/14/2020 12:55 PM SYSTEM TRAINER Oxygen Saturation 94% 05/14/2020 8:47 AM SYSTEM TRAINER Inhaled Oxygen Concentration - - Weight 111 kg (245 lb) 05/13/2020 11:29 PM SYSTEM TRAINER Height 167.6 cm (5' 6") 05/13/2020 11:05 AM SYSTEM TRAINER Body Mass Index 39.54 05/13/2020 11:05 AM SYSTEM TRAINER Plan of Treatment Health Maintenance Due Date Last Done Comments DIABETES: RETINAL EYE EXAM 02/15/1966 DIABETIC FOOT EXAM 02/15/1966 COVID-19 VACCINE (1 of 2) 1972 CERVICAL CANCER SCREENING 02/15/1977 BREAST CANCER SCREENING 02/15/2006 COLONOSCOPY SCREENING 02/15/2006 SHINGLES VACCINES (#1) 02/15/2006 INFLUENZA VACCINE Completed 05/05/2020 Procedures Procedure Name Priority Date/Time Associated Comments Diagnosis POC GLUCOSE Routine 05/14/2020 1:43 Results for this PM SYSTEM TRAINER procedure are i n the results section. HEPATITIS B SURFACE Routine 05/14/2020 9:20 Resu lts for this ANTIBODY AM SYSTEM TRAINER procedure are i n the results section. HEPATITIS B SURFACE AB, Routine 05/14/2020 9:20 Results for this QUANTITATIVE AM SYSTEM TRAINER procedure are i n the results section. HEPATITIS B SURFACE Routine 05/14/2020 9:20 Resu lts for this ANTIGEN AM SYSTEM TRAINER procedure are i n the results section. HEMODIALYSIS Routine 05/14/2020 8:33 AM SYSTEM TRAINER POC GLUCOSE Routine 05/14/2020 7:19 Results for this AM SYSTEM TRAINER procedure are i n the results section. POC GLUCOSE Routine 05/13/2020 8:43 Results for this PM SYSTEM TRAINER procedure are i n the results section. POC GLUCOSE Routine 05/13/2020 5:55 Results for this PM SYSTEM TRAINER procedure are i n the results section. POC GLUCOSE Routine 05/13/2020 2:05 Results for this PM SYSTEM TRAINER procedure are i n the results section. POC GLUCOSE Routine 05/13/2020 11:11 Results for this AM SYSTEM TRAINER procedure are i n the results section. OR AN PERIPHERAL BLOCK Routine 05/13/2020 8:50 R esults for this PROCEDURE FOR PAIN AM SYSTEM TRAINER procedure are in the results section. POC PANEL Routine 05/13/2020 7:32 Results for this AM SYSTEM TRAINER procedure are i n the results section. ESTIMATED GFR STAT 05/13/2020 7:26 Results fo r this AM SYSTEM TRAINER procedure are i n the results section. COMPREHENSIVE METABOLIC STAT 05/13/2020 7:26 Results for this PANEL AM SYSTEM TRAINER procedure are i n the results section. ECG PRE/POST OP Routine 05/11/2020 2:54 Preop testing Results for this PM SYSTEM TRAINER procedure are i n the results section. PARTIAL THROMBOPLASTIN Routine 05/11/2020 2:36 Preop testing Results for this TIME (PTT) PM SYSTEM TRAINER procedure are i n the results section. PROTHROMBIN TIME WITH Routine 05/11/2020 2:36 Preop testing R esults for this INR PM SYSTEM TRAINER procedure are i n the results section. HEMOGLOBIN A1C Routine 05/11/2020 2:36 Preop testing Results for this PM SYSTEM TRAINER procedure are i n the results section. TYPE AND SCREEN Routine 05/11/2020 2:36 Preop testing Results for this PM SYSTEM TRAINER procedure are i n the results section. HC COMPLETE BLD COUNT Routine 05/11/2020 2:36 Preop testing R esults for this W/AUTO DIFF PM SYSTEM TRAINER procedure are i n the results section. COVID-19 QUALITATIVE Routine 05/11/2020 2:36 Preop testing Re sults for this PCR PM SYSTEM TRAINER procedure are i n the results section. POC GLUCOSE Routine 03/25/2020 9:24 Results for this AM CDT procedure are i n the results section. OR AN PERIPHERAL BLOCK Routine 03/25/2020 9:08 R [...] are i n the results section. after 08/03/2019 Results POC glucose (05/14/2020 1:43 PM SYSTEM TRAINER)Only the most recent of7 resultswithin the time period is included. Pathologist Sig [facility] POC glucose 173 (H) 65 - 99 mg/dL [facility] Comment: [facility] Hair Specialist Name: Mao Morrow Device ID: [id number] Chartable: RN Notified Specimen Blood Performing Organization Address City/State/ZIP Code Phon e Number [facility] DEPARTMENT OF PATHOLOGY [address] [facility]. [place] [address] AND GENOMIC MEDICINE [facility] [address] [place] [address], [place] [address] [facility] Hepatitis B surface Ab, quantitative (05/14/2020 9:20 AM SYSTEM TRAINER) Hepatitis B 17.00 IU/L [facility] RE[facility] [...] to MMWR June 30, 2005/Vol. 54 (No. 16);1-23, and for healthcare workers refer to MMWR [...] and Tissue-Based Products (HCT/P) . Performed By: [facility] [address] [place] [address] [employer] Tender: Lori Wooten MD Specimen Serum Performing Organization Address [facility] Phon e Number [facility] [address] [place] [address] [facility] [address] [place] [address] Hepatitis B surface antibody (05/14/2020 9:20 AM SYSTEM TRAINER) Pathologist Sig nature Hepatitis B surface Reactive (A) Non-reactive [facility] Specimen Blood Performing Organization Address City/[facility] Phon e Number [facility] DEPARTMENT OF PATHOLOGY AND [address] [place] [address] [address] [address] Hepatitis B surface antigen (05/14/2020 9:20 AM SYSTEM TRAINER) Pathologist Sig nature Hepatitis B surface Non-reactive Non-reactive [facility] Specimen Blood Performing Organization Address City/[facility] Phon e Number [facility] DEPARTMENT OF PATHOLOGY [address] [place] [address], [place] [address] AND GENOMIC [facility] [address] [place] [address], [place] [address] HOSPITAL Peripheral Block (05/13/2020 8:50 AM SYSTEM TRAINER) Narrative Performed At Monty Ashley MD 05/13/2020 8:54 AM Peripheral Block Date/Time: 05/13/2020 8:34 AM Performed by: Monty Ashley MD Authorized by: Monty Ashley MD Start Time: 05/13/2020 8:20 AM End Time: 05/13/2020 8:45 AM Reason for Block: at surgeon's request Staff: Anesthesiologist: Essence Ashley MD Resident/CORRECTIONS OFFICER/AA: James Toure Ma, CRNA Performed by: Resident/CORRECTIONS OFFICER/AA Preprocedure: patient identified, IV vicki cked, site [...] 20 mL POC panel (05/13/2020 7:32 AM SYSTEM TRAINER)Only the most recent of2 resultswithin the time period is included. POC sodium 135 135 - 148 [facility] mmol/L [facility] POC potassium 4.2 3.5 - 5.0 [facility] mmol/L [facility] POC glucose 235 (H) 65 - 99 mg/dL NOÉ MORROW Comment: [place] Hair Specialist Name: [facility] Device ID: [id number] POC hemoglobin 11.6 (L) 12.0 - 16.0 [place] [facility] g/dL [facility] POC hematocrit 34 (L) 37 - 47 % [facility] Specimen Blood Performing Organization Address [facility] Phon e Number [facility] DEPARTMENT OF PATHOLOGY [address] [place] [address] [id number] [place] [address] Estimated GFR (05/13/2020 7:26 AM SYSTEM TRAINER)Only the most recent of2 resultswithin the time period is included. Estimated GFR 15 (A) mL/min/1.73 [facility] Comment: m2 [place] Catergory Units Interpretation HOS PITAL G1 >=90 [...] in 2014. Specimen Plasma Performing Organization Address [facility] Phon e Number [facility] DEPARTMENT OF PATHOLOGY [address] [place] [address] [address] Comprehensive metabolic panel (05/13/2020 7:26 AM SYSTEM TRAINER)Only the most recent of2 resultswithin the time period is included. Pathologist Sig nature Sodium 133 (L) 135 - 148 mEq/L [facility] Potassium 4.2 3.5 - 5.0 mEq/L [facility] Chloride 97 (L) 98 - 112 mEq/L [facility] CO2 23 (L) 24 - 31 mEq/L [facility] Anion gap 13@ANIO 7 - 15 mEq/L [facility] BUN 36 (H) 8 - 23 mg/dL [facility] Creatinine 3.07 (H) 0.50 - 0.90 [facility] mg/dL [facility] Glucose 250 (H) 65 - 99 mg/dL [facility] Calcium 9.1 8.8 - 10.2 [facility] mg/dL [facility] Protein 6.4 6.3 - 8.3 g/dL [facility] Albumin 3.8 3.5 - 5.0 g/dL [facility] A/G ratio 1.5 0.7 - 3.8 [facility] Alkaline phosphatase 116 (H) 35 - 104 U/L [facility] AST 21 10 - 35 U/L [facility] ALT 13 5 - 50 U/L [facility] Total bilirubin 0.3 0.2 - 1.2 mg/dL [facility] Specimen Plasma Performing Organization Address [facility] Phon e Number [facility] DEPARTMENT OF PATHOLOGY [address] [facility] [address] AND GENOMIC MEDICINE [facility] [address] [facility] [place] [address] HOSPITAL ECG Pre/Post Op (05/11/2020 2:54 PM SYSTEM TRAINER)Only the most recent of2 resultswithin the time period is included. Pathologist Sig nature Ventricular rate 70 [facility] MUSE Atrial rate 70 [facility] M[facility] OR interval 158 [facility] M[facility] QRSD interval 92 [...] is no t available. Performing Organization Address [facility] Phon e Number [facility] MUSE [address] [place] [address] COVID-19 qualitative PCR (05/11/2020 2:36 PM SYSTEM TRAINER)Only the most recent of2 resultswithin the time period is included. Interpretation Negative results do not prec lude 2019-nCoV infection and should not be used as the sole basis for treatment or other patient management decisions. Negative results must be combined with clinical observations, patient history, and epidemiological [place] information. [facility] COVID-19 qualitative Not-Detected Not-Detecte [facility] PCR result d [facility] COVID-19 qualitative See link below for [facility] PCR PDF Lab [facility] ReportComment: Case HOSPITAL Number: [id number] Specimen Nasal swab Performing Organization Address City/[facility]/ZIP [facility] Phon e Number [facility] DEPARTMENT OF PATHOLOGY AND [address] [place], [place] [address] [facility] [address] [place] [address] [facility] Partial thromboplastin time, activated (05/11/2020 2:36 PM SYSTEM TRAINER)Only the most recent of2 resultswithin the time period is included. PTT 28.1 23.0 - 36.0 [facility] Comment: [facility] PTT therapeutic range for unfractionated heparin is HOSPITAL 61.0-112.0 seconds which corresponds to Anti-Xa 0.3-0.7 U/ml. Specimen Blood Performing Organization Address [facility] Phon e Number [facility] DEPARTMENT OF PATHOLOGY [address] [place] [address] Prothrombin time with INR (05/11/2020 2:36 PM SYSTEM TRAINER)Only the most recent of2 resultswithin the time period is included. Prothrombin time 15.5 (H) 11.5 - 14.5 [facility] INR 1.2 [place] Comment: CRISTHIAN OSBORN [facility] International Normalized Ratio (INR) is a therapeu [facility] monitoring tool for patients who are stable on oral anticoagulant therapy. An INR of 2.0-3.0 is suggested for deep vein thrombosis/pulmonary embolism. Specimen Blood Performing Organization Address City/[facility] Phon e Number [facility] DEPARTMENT OF PATHOLOGY [address] [place] [address] CBC with platelet and differential (05/11/2020 2:36 PM SYSTEM TRAINER)Only the most recent of2 resultswithin the time period is included. WBC 11.7 (H) 4.5 - 11.0 k/uL [facility] RBC 3.46 (L) 4.20 - 5.50 [facility] m/uL [facility] HGB 10.6 (L) 12.0 - 16.0 [facility] g/dL [facility] HCT 32.2 (L) 37.0 - 47.0 % [facility] MCV 93.1 82.0 - 100.0 fL [facility] MCH 30.6 27.0 - 34.0 pg [facility] MCHC 32.9 31.0 - 37.0 [facility] g/dL [facility] RDW - SD 46.5 37.0 - 55.0 fL [facility] MPV 9.6 6.9 - 11.0 fL [facility] Platelet count 239 150 - 400 K/uL [facility] Nucleated RBC 0.00 /100 WBC [facility] Neutrophils 76.1 (H) 39.0 - 69.0 % [facility] Lymphocytes 14.3 (L) 25.0 - 45.0 % [facility] Monocytes 6.6 0.0 - 10.0 % [facility] Eosinophils 2.3 0.0 - 5.0 % [facility] Basophils 0.3 0.0 - 1.0 % [facility] Immature granulocytes 0.4 0.0 - 1.0 % [facility] Specimen Plasma Performing Organization Address City/[facility] Phon e Number [facility] DEPARTMENT OF PATHOLOGY [address] [place] [address] AND GENOMIC [place] [address] HOSPITAL Type and screen (05/11/2020 2:36 PM SYSTEM TRAINER)Only the most recent of2 resultswithin the time period is included. Pathologist Sig nature ABO grouping A [facility] Rh type POS [facility] Antibody screen (gel) [facility] Specimen Plasma Performing Organization Address City/[facility] Phon e Number [facility] DEPARTMENT OF PATHOLOGY [phone] [place] [address] AND GENOMIC MEDICINE [address] Hemoglobin A1c (05/11/2020 2:36 PM SYSTEM TRAINER) Hemoglobin A1C 8.6 (H) 4.0 - 5.6 % NOÉ MORROW Comment: [place] HbA1c cutoffs for diagnosing diabetes: HO SPITAL [...] Organization Address City/State/ZIP Code Phon e Number [facility] DEPARTMENT OF PATHOLOGY [address] [facility] [place] [address] AND GENOMIC MEDICINE [facility] [address] [facility] [address] HOSPITAL Peripheral Block (03/25/2020 9:08 AM CDT) Narrative Performed At Monty Ashley MD 03/09 9:13 AM Peripheral Block Date/Time: 03/25/2020 7:36 AM Performed by: Monty Ashley MD Authorized by: Monty Ashley MD Patient Location: Pre-op Start Time: 03/25/2020 7:40 AM End Time: 03/25/2020 7:48 AM Reason for Block: primary anesthetic Staff: Anesthesiologist: Essence Ashley MD Resident/CORRECTIONS OFFICER/AA: Brook Hernandez C RNA Performed by: Anesthesiologist [...] of Twitch: 0.4 mA Needle: Needle Type: Alexjunk Needle Gauge: 21 G Needle Length: 10 [...] suspicious osseous lesions. Os seous degenerative changes. [facility]-[id number] Procedure Note Interface, Radiology Results Incoming - [...] suspicious osseous lesions. Os seous degenerative changes. [facility]-[id number] Performing Organization Address City/State/ZIP Code Phon e Number [facility] [address] [place] [address] after 08/03/2019 Insurance Payer Benefit Plan / Subscriber ID Effective Dates Phone Addre ss Type Group MEDICARE MEDICARE PART A [id number] 2020-Present [place], [place] Medicare AND B Advance Directives For more information, please contact: [phone] Type Date Recorded Patient Information Services Consultant Explanati on Advance Directives, Living Will 03/23/2020 9:32 AM and Medical Power of Director Of Therapy Services
--- OUTSIDE RECORDS SUMMARY | 2020-08-03 10:05 | XMS REPORT | Continuity of Care Document ---
:1955 Author Organization [facility] t Address [address] Gar[place]. [address] [place] [id number] Care Team Providers Name Role Phone Anders Johnson MD Primary Care Physician Randa BURROUGHS, T. Attending Clinician Iain Leahy MD Attending Clinician Walter Ashley MD. Attending Clinician Licha SAFETY DEPOSIT CLERK Attending Clinician Collins Chavira MD Attending Clinician Fermin BO Attending Clinician Sly BURROUGHS Attending Clinician ARMOND Admitting Clinician Unavailable Collins Chavira MD Admitting Clinician RANDA Admitting Clinician Unavailable Payers Payer Name Policy Type Policy Effective Date Expiration Date Sour ce Number MEDICAREMEDICARE PART [id number] 2020 Keo basurtoterry Guy AND 00:00:00 Confucianist [id number] [place], [place] Problems Condition Condition Condition Status Onset [...] Stop Date Source Natural father Heart disease [place] [facility] Natural father Hypertension [place] [facility] Natural father Thrombophlebitis [place] Natural mother Diabetes [facility] thodist Natural mother Hyperlipidemia [place] Natural mother Hypertension [place] [facility] Natural mother Kidney disease [place] [facility] Social History Social Habit Start Date Stop Date Quantity Comments Source History of tobacco Current smoker [facility] Confucianist use Sex Assigned At [facility] ethodi Cigarettes smoked 2020-05-14 2020-05-14 [facility] current (pack per 00:00:00 00:00:00 day) - Reported Cigarette 2020-05-14 2020-05-14 [facility] ist pack-years 00:00:00 00:00:00 Tobacco use and 2020-05-14 2020-05-14 Never used [facility] ethodist exposure 00:00:00 00:00:00 Alcohol intake 2020-05-14 2020-05-14 Current drinker [place] [facility] 00:00:00 00:00:00 of alcohol (finding) Alcohol Comment 2020-03-23 2020-03-23 [facility] Smoking Status Start Date Stop Date Source Former smoker 2020-05-14 00:00:00 2020-05-14 00:00:00 [facility] Medications Ordered Filled Start Stop Current Ordering [...] 2 more days insulin 2019-07- No 30U [id number] Inject 30 Davila lispro 07-14 [id number] Units Metho di (HUMALOG 15:24: 00:[address] U-100 59 :00 skin 3 INSULIN (three) SUBQ) times a day before meals. insulin 2019-07 Yes 30U [id number] Inject 30 Davila lispro 07-14 [id number] Units Method i (HumaLOG 00:00: 3D under the st U-100 00 skin 3 Insulin) (three) 100 unit/mL times a injection day before meals. HYDROcodone 2019-07 2020- No acute pain 1{tbl} Q8H Take 1 Davila -acetaminop 07-14 tablet by Me elías tabares ([place]) 00:00: 23:[address] 5-325 mg 00 [...] temperature 2020-05-14 12:50:00 36.44 Katharina [place] Confucianist Oxygen saturation in 2020-05-14 08:47:59 94 /min Giovanni Parrish Arterial blood by Pulse oximetry Body weight 2020-05-13 23:29:00 111.131 kg Giovanni Parrish BMI 2020-05-13 23:29:00 39.54 kg/m2 Giovanni Parrish Body height 2020-05-13 11:05:00 167.6 cm Giovanni Parrish Procedures Procedure Date / Time Performing Clinician Source Performed POC GLUCOSE 2020-05-14 13:43:00 ArmondSusan goldsmith [facility]odist HEPATITIS B SURFACE 2020-05-14 09:20:00 PrestonElizabet velarde Confucianist ANTIGEN HEPATITIS B SURFACE 2020-05-14 09:20:00 PrestonElizabet velarde Confucianist ANTIBODY HEMODIALYSIS 2020-05-14 08:33:22 PrestonElizabet velarde Davila Meth odist POC GLUCOSE 2020-05-14 07:19:00 Ephraim Leahygaurav Avileswalter Davila [facility] POC GLUCOSE 2020-05-13 20:43:00 ArmondSusan Davila [facility]ist POC GLUCOSE 2020-05-13 17:55:00 ArmondSusan goldsmith Davila [facility]odist POC GLUCOSE 2020-05-13 14:05:00 ArmondSusan Davila [facility] POC GLUCOSE 2020-05-13 11:11:00 ArmondSusanwalter Davila [facility]ist PA AN PERIPHERAL BLOCK 2020-05-13 08:50:13 [place] on Confucianist PROCEDURE FOR PAIN Bo Peter POC PANEL [...] (PTT) POC GLUCOSE 2020-03-25 09:24:00 Fred Tolentino PA AN PERIPHERAL BLOCK 2020-03-25 09:08:41 [place] Ashley [...] Future Scheduled 2006-02-15 COLONOSCOPY SCREENING [place] [facility] Test 00:00:00 [code = COLONOSCOPY SCREENING] Future Scheduled 2006-02-15 SHINGLES VACCINES [place] [facility] Test 00:00:00 (#1) [code = SHINGLES VACCINES (#1)] Future Scheduled 1977-02-15 Screening for [place] [facility] Test 00:00:00 malignant neoplasm of cervix (procedure) [code = 707062613] Future Scheduled 1972 COVID-19 VACCINE (1 [place] [facility] Test 00:00:00 of 2) [code = COVID-19 VACCINE (1 of 2)] Future Scheduled 1966-02-15 DIABETES: RETINAL EYE [place] [facility] Test 00:00:00 EXAM [code = DIABETES: RETINAL EYE EXAM] Future Scheduled 1966-02-15 DIABETIC FOOT EXAM [place] [facility] Test 00:00:00 [code = DIABETIC FOOT EXAM] Encounters Start End Encounter Admission Attending Care Care Encounter Source Date/Time Date/Time Type Type Clinicians Facility Department ID 2020-05-13 2020-05-14 Outpatient SUSAN LEAHY [facility] [id number] [place] 00:00:00 00:00:[address] 2020-05-11 2020-05-11 Outpatient [facility] [id number] [place] 00:00:00 00:00:00 IMRAN [address] 2020-04-01 2020-04-01 Hospital [facility] [id number] 06:36:00 10:10:00 Encounter Naveen Garza [id number] Collins Allison [id number] Surgical [id number] [place] 071 2020-04-01 2020-04-01 Anesthesia Demetrio Christensen [facility] [id number] 08:01:00 08:33:00 [facility] [id number] [place] 4.2.7.2.686 Surgical [id number] [place] 020 2020-03-25 2020-03-25 Outpatient RANDA, [facility] 021 [id number] [place] 00:00:00 00:00:00 IMRAN [address] 2020-03-23 2020-03-23 Outpatient RANDA, [facility] [id number] [place] 00:00:00 00:00:00 IMRAN [address] 2020-03-23 2020-03-23 Outpatient MODESTA [facility] [id number] [place] 00:00:00 00:00:00 MICHELE, 993 Method i BO [...] anti-HBs 9.99 I U/L or less ....... Covhjdfh56.00 I U/L or greater .... PositiveResults greater than 1,000.00 IU/L are report ed as greater than 1,000.00 IU/L. This assay should not be used for blood donor screening, associated re-e ntry protocols, or for screening Human Cell, Tissues and Cellular and Ti ssue-Based Products (HCT/P).Perform ed By: [address] [id number] aboratory Director: MD Giovanni JuanHepatitis B surface [id number] 14:16:56 Test Item Value Reference Range Interpretation Comments Hepatitis B surface Ab (test code = Reactive Non-reactive A 80610-6) Lab Interpretation (test code = Abnormal 18143-7) Giovanni ParrishPOC [id number] 13:44:18 Test Item Value Reference Range Interpretation Comments POC glucose (test code 173 mg/dL 65-99 H Opera tor Name: = 97293-5) Mao Morrow Device ID: [id number] able: RN Notified Lab Interpretation Abnormal (test code = 81161-0) Givoanni MethodistHepatitis B surface [id number] 10:16:56 Test Item Value Reference Range Interpretation Comments Hepatitis B surface Ag (test Non-reactive Non-reactive code = 5195-3) Davila MethodistPOC [id number] 13:05:15 Test Item Value Reference Range Interpretation Comments POC sodium (test code = 135 mmol/L 519-911 3422-0) POC potassium (test 4.2 mmol/L 3.5-5 code = 6298-4) POC glucose (test code 235 mg/dL 65-99 H Opera tor Name: = 2339-0) Rabago EdilmailieDevice ID : [id number] POC hemoglobin (test 11.6 g/dL 12-16 L code = 718-7) POC hematocrit (test 34 % 37-47 L code = 4544-3) Lab Interpretation Abnormal (test code = 10006-9) Davila MethodistPeripheral [id number] 08:50:13Bo Ashley MD 05/13/2020 8:54 AMPeripheral Block Date/Time: 05/13/2020 8:34 AMPerformed by: Bo Ashley MDAuthorized by: Bo Ashley MD Start Time:05/13/2020 8:20 AMEnd Time: 05/13/2020 8:45 AMReason for Block: at surgeon's request Staff: Anesthesiologist: Bo Ashley MD Resident/TIME CYCLE OPERATOR/AA: James Toure CRNA Performed by: Resident/TIME CYCLE OPERATOR/AAPreprocedure: patient identified, IV checked, site and side [...] ropivacaine.Medications AdministeredRopivacaine 0.5 % PF (mL), 20 mLHouston MethodistComprehensive metabolic [id number] 07:59:23 Test Item Value Reference Range Interpretation Comments Sodium (test code = 2951-2) 133 135- 148 mEq/L L Potassium (test code = 2823-3) 4.2 3.5- 5.0 mEq/L Chloride (test code = 2075-0) 97 98- 112 mEq/L L CO2 (test code = 2027-9) 23 24- 31 mEq/L L Anion gap (test code = 17437-0) 13@ANIO 7- 15 mEq/L BUN (test code = 3094-0) 36 mg/dL 8-23 H Creatinine (test code = 2160-0) 3.07 mg/dL 0.5-0.9 H Glucose (test code = 2345-7) 250 mg/dL 65-99 H Calcium (test code = 85719-7) 9.1 mg/dL 8.8-10.2 Protein (test code = [...] 1974-08) Lab Interpretation (test code = Abnormal 80809-5) Giovanni MethodistEstimated [id number] 07:59:23 Test Item Value Reference Range Interpretation Comments Estimated GFR (test 15 mL/min/1.73 m2 A Luis souza Units code = 5488) InterpretationG 1 >=90 Keiry l or highG2 60-89 Mildly decrease dG3a 45-59 Mil dly to moderately decr cnvhcZ9h 30-44 Moderately to s everely decreasedG4 15-29 Severe ly decreasedG5 <15 Kidney davis lureThe eGFR was calcul ated using the Chron Kidney Disease Epidemiology Collaboration ( CKD-EPI) equation. Interpretation is based on recommendati ons of the [facility]-Kidn ey Disease Outcome s Quality Initiat hermes (NKF-KDOQI) pub [facility] in 2013. Lab Interpretation Abnormal (test code = 27366-5) Giovanni KitchenistCOVID-19 qualitative [id number] 01:15:52 Test Item Value Reference Range Interpretation Comments Interpretation (test Negative results do code = 2781014) not preclude 2019-nCoV infection and should not be used as the sole basis for treatment or other patient management decisions. Negative results must be combined with clinical observations, patient history, and epidemiological information. COVID-19 qualitative Not-Detected Not-Detected PCR result (test code = 07432-3) COVID-19 qualitative See link below for C ase Number: PCR (test code = PDF Lab Report [id number]) Giovanni MethodistType and [id number] 18:16:00 Test Item Value Reference Range Interpretation Comments ABO grouping (test code = 883-9) A Rh type (test code = 55414-4) POS Antibody screen (gel) (test code = NEG 890-4) Giovanni MethodistPartial thromboplastin time, [id number] 15:59:01 Test Item Value Reference Range Interpretation Comments PTT (test code = 28.1 23.0- 36.0 sec PTT thera peutic range for 3173-2) unfractionated heparin is61.0-112.0 se conds which corresponds to Anti-Xa0.3-0.7 U/ml. Davila MethodistHemoglobin [id number] 15:58:56 Test Item Value Reference Range Interpretation Comments Hemoglobin A1C (test 8.6 % 4-5.6 H HbA1c c utoffs for code = 14971-1) diagnosing diabetes:4.0% - 5.6% = normal5.7% - 6.4% = increased risk for diabetes (prediabetes)9> =6.5% = rfmndarl5Mkwv s for glycemic contro l (ADA 2016)< 7.0% Ta rget for non adults with pearl betes. More or less stringent targe ts may be appropriate for individual omaira ents. <7.5% Target for Children and adolescents wit h type 1 diabetes. Lab Interpretation (test Abnormal code = 78550-6) Davila MethodistProthrombin time with [id number] 15:58:18 Test Item Value Reference Range Interpretation Comments Prothrombin time (test 15.5 11.5- 14.5 sec H code = 5902-2) INR (test code = 1.2 The Interna tional 14424-8) Normalized Rati o (INR) is a therapeuti c monitoring tool for patients who ar e stable on oral anticoagulant t herapy. An INR of 2.0-3 .0 is suggested for d eep vein thrombosis/pulm onary embolism. Lab Interpretation Abnormal (test code = 97965-8) Davila MethodistCBC with platelet and [id number] 15:47:50 Test Item Value Reference Range Interpretation Comments WBC (test code = 02043-5) 11.7 4.5- 11.0 k/uL H RBC (test code = 50552-1) 3.46 m/uL 4.2-5.5 L HGB (test code = 718-7) 10.6 g/dL 12-16 L HCT (test code = 4544-3) 32.2 % 37-47 L MCV (test code = 787-2) 93.1 fL 82-100 MCH (test code = 785-6) 30.6 pg 27-34 MCHC (test code = 786-4) 32.9 g/dL 31-37 RDW - SD (test code = 52639-8) 46.5 fL 37-55 MPV (test code = 54091-0) 9.6 fL 6.9-11 Platelet count (test code = 239 K/uL 150-400 95707-3) Nucleated RBC (test code = 75414-6) 0.00 /100 WBC Neutrophils (test code = 02512-7) 76.1 % 39-69 H Lymphocytes (test code = 87875-0) 14.3 % 25-45 L Monocytes (test code = 03044-2) 6.6 % 0-10 Eosinophils (test code = 58623-3) 2.3 % 0-5 Basophils (test code = 51746-0) 0.3 % 0-1 Immature granulocytes (test code = 0.4 % 0-1 05812-5) Lab Interpretation (test code = Abnormal 07960-3) Giovanni MethodistECG Pre/Post [id number] 15:43:26 Test Item Value Reference Range Interpretation Comments Ventricular rate (test 70 code = 253) Atrial rate (test code 70 = 255) PA interval (test code 158 = 266) QRSD [...] 10:47,-No significant change was found- Giovanni MethodistPeripheral [id number] 09:08:41WBo tyler MD 03/25/2020 9:13 AMPeripheral BlockDate/Time: 03/25/2020 7:36 AMPerformed by: Bo Ashley MDAuthorized by: Bo Ashley MD Patient Location: Pre-opStart Time: 03/25/2020 7:40 AMEnd Time: 03/25/2020 7:48 AMReason for Block: primary anesthetic Staff: Anesthesiologist: Bo Ashley MD Resident/TIME CYCLE OPERATOR/AA: Brook Hernandez CRNA Performed by: AnesthesiologistPreprocedure: patient [...] PF (mL), 15 mLHouston MethodistXR Chest 2 [id number] 11:36:18Hm Interface, Radiology Results 03/23/2020 11:39 AM [...] Bones: No suspicious osseous lesions. Osseous degenerative changes.[facility]-[id number] Confucianist
[2020-08-03 12:35] LABS: Absolute Lymphocytes (CBC) 1.1 K/uL (0.7-4.9); Basophils % 0.9 % (0-1.3); Hematocrit 33.2 % (36.0-45.0); Lymphocytes % 10.2 % (15.3-44.8); MPV 7.3 fL (7.6-11.3); RBC Red Blood Cell Count 3.75 M/uL (3.86-4.86)
[2020-08-03 12:35] LABS: Urine Blood 1+ (NEG); Urine Glucose TRACE (NEG); Urine Protein 3+ (NEG)
[2020-08-03 12:42] LABS: Protime INR 1.01
[2020-08-03] MEDS ORDERED: CEFTRIAXONE/SWI 1gm 1 GM/10 ML SYR ONE (12:58)
[2020-08-03 13:00] LABS: ALT/SGPT 21 U/L (12-78); AST/SGOT 18 U/L (15-37); Albumin 3.8 g/dL (3.4-5.0); Alkaline Phosphatase 128 U/L (45-117); BUN Blood Urea Nitrogen 62 mg/dL (7-18); Bicarbonate 25 mmol/L (21-32); Bilirubin Direct < 0.1 mg/dL (0-0.2); Bilirubin Total 0.3 mg/dL (0.2-1.0); Glucose Level 152 mg/dL (74-106); Magnesium 2.1 mg/dL (1.8-2.4); NT PRO-BNP 4049 pg/mL (<125); Potassium 4.5 mmol/L (3.5-5.1); Protein, Total 8.3 g/dL (6.4-8.2); Sodium Level 136 mmol/L (136-145); Troponin (Emerg Dept Use Only) < 0.02 ng/mL (0.0-0.045)
--- NOTE | 2020-08-03 13:34 | RAD REPORT ---
EXAM DESCRIPTION: RAD - Chest Single View - 08/03/2020 1:09 pm CLINICAL HISTORY: COUGH COMPARISON: June 25, 2020 TECHNIQUE: AP portable chest image was obtained 08/03/2020 1:09 pm . FINDINGS: No new mass or consolidation of the lung parenchyma. No significant failure or volume over load findings. Heart, vasculature and lung markings are all accentuated by shallow inspiration, syl ble technique and body habitus. Double-lumen dialysis catheter on the right has not changed. Heart and vasculature are normal. No measurable pleural effusion and no pneumothorax. No acute bony abnormality seen. No acute aortic findings suspected. IMPRESSION: No acute cardiopulmonary process. No significant change from comparison.
--- NOTE | 2020-08-03 13:40 | ER ---
Nurse's Notes [facility] Name: Meseret Gallego Age: 65 yrs Sex: Female : 1955 Arrival Date: 08/03/2020 Time: 09:22 Bed 2 Private MD: Diagnosis: Urinary tract infection, site not specified;End stage renal disease-on hd;Weakness;Type 1 diabetes mellitus Presentation: 08/03 09:36 Chief complaint: Patient states: "I went to dialysis and I was shaking and they tried a ss few things and finally they just sent me over to get my electrolytes checked. I think on top of that I may have a UTI." Pt reports she was seen for the same thing a month ago and all her test looked ok. Coronavirus screen: Client denies travel out of the [place] in the last 14 days. Ebola Screen: Patient denies exposure to infectious person. Patient denies travel to an Ebola-affected area in the 21 days before illness onset. Initial Sepsis Screen: Does the patient meet any 2 criteria? No. Patient's initial sepsis screen is negative. Does the patient have a suspected source of infection? No. Patient's initial sepsis screen is negative. Risk Assessment: Do you want to hurt yourself or someone else? Patient reports no desire to harm self or others. Onset of symptoms was August 03, 2020. 09:36 Method Of Arrival: Ambulatory 09:36 Acuity: CHRISTOPHER 3 ss Historical: - Allergies: 09:38 Codeine; ss 09:38 Phenergan; ss 09:38 Tape; ss - PMHx: 09:38 Diabetes - IDDM; Hypertension; Hypothyroidism; Dialysis; ss - Immunization history:: Adult Immunizations up to date. - Social history:: Smoking status: Patient denies any tobacco usage or history of. Screenin:22 Abuse screen: Denies threats or abuse. Denies injuries from another. Nutritional sv screening: No deficits noted. Tuberculosis screening: No symptoms or risk factors identified. Fall Risk None identified. Assessment: 12:10 Reassessment: pt needing to give urine sample at this time, pt escorted to restroom via tw2 w/c at this time, urine specimen cup and wipes given. 12:15 General: Appears in no apparent distress. obese, well groomed, Behavior is calm, tw2 cooperative, appropriate for age. Pain: Denies pain. Neuro: Level of Consciousness is awake, alert, obeys commands, Oriented to person, place, time, situation. Neuro: Reports dizziness, "when i was at dialysis, but i havent eaten this morning but they wanted me to check out my electrolytes". Cardiovascular: Patient's skin is warm and dry. Cardiovascular: Dialysis shunt: in the anterior aspect of right upper chest. Respiratory: Airway is patent Respiratory effort is even, unlabored, Respiratory pattern is regular, symmetrical. GI: No signs and/or symptoms were reported involving the gastrointestinal system. Abdomen is round non-distended, obese. : No signs and/or symptoms were reported regarding the genitourinary system. EENT: No signs and/or symptoms were reported regarding the EENT system. Derm: No signs and/or symptoms reported regarding the dermatologic system. Musculoskeletal: Range of motion: intact in all extremities. 12:45 Reassessment: Patient appears in no apparent distress at this time. No changes from sv previously documented assessment. Patient and/or family updated on plan of care and expected duration. Pain level reassessed. Patient is alert, oriented x 3, equal unlabored respirations, skin warm/dry/pink. 13:55 Reassessment: Patient appears in no apparent distress at this time. No changes from sv previously documented assessment. Patient and/or family updated on plan of care and expected duration. Pain level reassessed. Patient is alert, oriented x 3, equal unlabored respirations, skin warm/dry/pink. Vital Signs: 09:36 BP 124 / 94; Pulse 75; Resp 20; Temp 97.2(TE); Pulse Ox 98% on R/A; Weight 112.49 kg; Height 5 ft. 6 in. (167.64 cm); Pain 0/10; 12:30 BP 162 / 60; Pulse 72; Resp 19; Pulse Ox 100% ; sv 13:00 Pulse 73; Resp 13; Pulse Ox 99% on R/A; sv 09:36 Body Mass Index 40.03 (112.49 kg, 167.64 cm) ED Course: 09:22 Patient arrived in ED. ds1 09:38 Triage completed. 09:38 Arm band placed on left wrist. 10:56 Sukhi Uribe MD is Attending Physician. [facility] 11:22 Kira Aguiar, RN is Primary Nurse. sv 11:22 Patient has correct armband on for positive identification. Bed in low position. Call sv light in reach. 11:23 Awaiting ED provider evaluation. sv 12:05 Inserted saline lock: 20 gauge in right antecubital area, using aseptic technique. tw2 Blood collected. 12:32 Lactate Sent. tw2 12:51 Blood Culture Adult (2) Sent. sv 12:51 Troponin (emerg Dept Use Only) Sent. sv 12:51 PT-INR Sent. sv 12:51 NT PRO-BNP Sent. sv 12:51 Magnesium Sent. sv 12:51 LFT's Sent. sv 12:51 CBC with Diff Sent. sv 12:51 Basic Metabolic Panel Sent. sv 13:09 XRAY Chest (1 view) In Process Unspecified. EDMS 13:39 Elizabet Flores MD is Referral Physician. beth 13:55 No provider procedures requiring assistance completed. IV discontinued, intact, sv bleeding controlled, No redness/swelling at site. Pressure dressing applied. Administered Medications: 12:45 Drug: Rocephin 1 grams Route: IV; Rate: per protocol; Site: right antecubital; tw2 12:47 Follow up: Response: No adverse reaction; IV Status: Completed infusion; IV Intake: 10mlsv 13:55 Drug: LevOfloxacin 500 mg Route: PO; sv 13:55 Follow up: Response: Medication administered at discharge. sv Intake: 12:47 IV: 10ml; Total: 10ml. sv Outcome: 13:40 Discharge ordered by MD. beth 13:55 Patient left the ED. sv 13:55 Discharged to home via wheelchair. sv 13:55 Condition: stable 13:55 Discharge instructions given to patient, Instructed on discharge instructions, follow up and referral plans. medication usage, Demonstrated understanding of instructions, follow-up care, medications, Prescriptions given X 1. Signatures: Dispatcher [employer] EDNY Kira Aguiar, Sukhi Simon RN, MD MD cha Sanford, Demi ds1 Violeta Nixon RN RN ss Wise, Tara, RN RN tw2
--- NOTE | 2020-08-03 13:40 | EDPHYS ---
Physician Documentation [facility] Name: Meseret Gallego Age: 65 yrs Sex: Female : 1955 Arrival Date: 08/03/2020 Time: 09:22 Bed 2 Private MD: ANT Physician Sukhi Uribe HPI: 08/03 11:55 This 65 yrs old Female presents to ER via Ambulatory with complaints of beth Shakes, Leg Weakness. 11:55 shaking at dialysis. Onset: The symptoms/episode began/occurred just prior to arrival. beth Severity of symptoms: At their worst the symptoms were mild in the emergency department the symptoms are unchanged. The patient has not experienced similar symptoms in the past. Historical: - Allergies: 09:38 Codeine; ss 09:38 Phenergan; ss 09:38 Tape; ss - PMHx: 09:38 Diabetes - IDDM; Hypertension; Hypothyroidism; Dialysis; ss - Immunization history:: Adult Immunizations up to date. - Social history:: Smoking status: Patient denies any tobacco usage or history of. ROS: 11:56 Constitutional: Negative for fever, chills, and weight loss, Eyes: Negative for injury, beth pain, redness, and discharge, ENT: Negative for injury, pain, and discharge, Neck: Negative for injury, pain, and swelling, Cardiovascular: Negative for chest pain, palpitations, and edema, Respiratory: Negative for shortness of breath, cough, wheezing, and pleuritic chest pain, Abdomen/GI: Negative for abdominal pain, nausea, vomiting, diarrhea, and constipation, Back: Negative for injury and pain, MS/Extremity: Negative for injury and deformity, Skin: Negative for injury, rash, and discoloration, Neuro: Negative for headache, weakness, numbness, tingling, and seizure, Psych: Negative for depression, anxiety, suicide ideation, homicidal ideation, and hallucinations, Allergy/Immunology: Negative for hives, rash, and allergies, Endocrine: Negative for neck swelling, polydipsia, polyuria, polyphagia, and marked weight changes, Hematologic/Lymphatic: Negative for swollen nodes, abnormal bleeding, and unusual bruising. 11:56 : Positive for urinary symptoms, urinary frequency, hematuria, burning with urination. Exam: 11:56 Constitutional: This is a well developed, well nourished patient who is awake, alert, beth and in no acute distress. Head/Face: Normocephalic, atraumatic. Eyes: Pupils equal round and reactive to light, extra-ocular motions intact. Lids and lashes normal. Conjunctiva and sclera are non-icteric and not injected. Cornea within normal limits. Periorbital areas with no swelling, redness, or edema. ENT: Nares patent. No nasal discharge, no septal abnormalities noted. Tympanic membranes are normal and external auditory canals are clear. Oropharynx with no redness, swelling, or masses, exudates, or evidence of obstruction, uvula midline. Mucous membranes moist. Neck: Trachea midline, no thyromegaly or masses palpated, and no cervical lymphadenopathy. Supple, full range of motion without nuchal rigidity, or vertebral point tenderness. No Meningismus. Chest/axilla: Normal chest wall appearance and motion. Nontender with no deformity. No lesions are appreciated. Cardiovascular: Regular rate and rhythm with a normal S1 and S2. No gallops, murmurs, or rubs. Normal PMI, no JVD. No pulse deficits. Respiratory: Lungs have equal breath sounds bilaterally, clear to auscultation and percussion. No rales, rhonchi or wheezes noted. No increased work of breathing, no retractions or nasal flaring. Abdomen/GI: Soft, non-tender, with normal bowel sounds. No distension or tympany. No guarding or rebound. No evidence of tenderness throughout. Back: No spinal tenderness. No costovertebral tenderness. Full range of motion. Skin: Warm, dry with normal turgor. Normal color with no rashes, no lesions, and no evidence of cellulitis. MS/ Extremity: Pulses equal, no cyanosis. Neurovascular intact. Full, normal range of motion. Neuro: Awake and alert, GCS 15, oriented to person, place, time, and situation. Cranial nerves II-XII grossly intact. Motor strength 5/5 in all extremities. Sensory grossly intact. Cerebellar exam normal. Normal gait. Psych: Awake, alert, with orientation to person, place and time. Behavior, mood, and affect are within normal limits. 13:41 ECG was reviewed by the Attending Physician. [facility] Vital Signs: 09:36 BP 124 / 94; Pulse 75; Resp 20; Temp 97.2(TE); Pulse Ox 98% on R/A; Weight 112.49 kg; ss Height 5 ft. 6 in. (167.64 cm); Pain 0/10; 12:30 BP 162 / 60; Pulse 72; Resp 19; Pulse Ox 100% ; sv 13:00 Pulse 73; Resp 13; Pulse Ox 99% on R/A; sv 09:36 Body Mass Index 40.03 (112.49 kg, 167.64 cm) ss MDM: 10:56 Patient medically screened. [facility] 11:57 Differential diagnosis: kidney stone, nonspecific abdominal pain, urinary tract beth infection. Differential Diagnosis sepsis. Data reviewed: vital signs, nurses notes, lab test result(s), EKG, radiologic studies, plain films. Data interpreted: monitoring specialist: rate is 75 beats/min, rhythm is regular. Test interpretation: by ED physician or midlevel provider: ECG, plain radiologic studies. Counseling: I had a detailed discussion with the patient and/or guardian regarding: the historical points, exam findings, and any diagnostic results supporting the discharge/admit diagnosis, lab results, radiology results, the need for outpatient follow up. 13:39 Physician consultation: Elizabet Flores MD and will see patient in dialysis on . [facility] 08/03 11:54 Order name: Basic Metabolic Panel [facility] 08/03 11:54 Order name: CBC with Diff [facility] 08/03 11:54 Order name: LFT's [facility] 08/03 11:54 Order name: Magnesium [facility] 08/03 11:54 Order name: NT PRO-BNP [facility] 08/03 11:54 Order name: PT-INR [facility] 08/03 11:54 Order name: Troponin (emerg Dept Use Only) [facility] 08/03 11:54 Order name: Blood Culture Adult (2) [facility] 08/03 11:54 Order name: Lactate [facility] 08/03 11:54 Order name: Urine Culture [facility] 08/03 11:54 Order name: Basic Metabolic Panel; Complete Time: 13:05 [facility] 08/03 11:54 Order name: CBC with Automated Diff; Complete Time: 12:52 [facility] 08/03 11:54 Order name: XRAY Chest (1 view); Complete Time: 13:36 [facility] 08/03 11:54 Order name: EKG; Complete Time: 11:55 [facility] 08/03 11:54 Order name: Cardiac monitoring; Complete Time: 12:32 [facility] 08/03 11:54 Order name: EKG - Nurse/Tech; Complete Time: 12:32 [facility] 08/03 11:54 Order name: IV Saline Lock; Complete Time: 12:32 [facility] 08/03 11:54 Order name: Labs collected and sent; Complete Time: 12:32 [facility] 08/03 11:54 Order name: Liver (Hepatic) Function; Complete Time: 13:05 [facility] 08/03 11:54 Order name: Magnesium; Complete Time: 13:05 [facility] 08/03 11:54 Order name: NT PRO-BNP; Complete Time: 13:05 [facility] 08/03 11:54 Order name: Protime (+INR); Complete Time: 13:05 [facility] 08/03 11:54 Order name: Troponin (Emerg Dept Use Only); Complete Time: 13:05 [facility] 08/03 11:54 Order name: Blood Culture [facility] 08/03 11:54 Order name: Lactate; Complete Time: 13:05 [facility] 08/03 12:32 Order name: Urine Dipstick--Ancillary (enter results); Complete Time: 12:52 08/03 11:54 Order name: O2 Per Protocol; Complete Time: 12:10 [facility] 08/03 11:54 Order name: O2 Sat Monitoring; Complete Time: 12:10 [facility] 08/03 11:54 Order name: Urine Dipstick-Ancillary (obtain specimen); Complete Time: 12:32 [facility] EC:41 Rate is 75 beats/min. Rhythm is regular. QRS [place] is Normal. [place] interval is normal. QRS beth interval is normal. QT interval is normal. No Q waves. T waves are Normal. No ST changes noted. Clinical impression: NSR w/ Non-specific ST/T Changes and No evidence of ischemia. Interpreted by me. Reviewed by me. Administered Medications: 12:45 Drug: Rocephin 1 grams Route: IV; Rate: per protocol; Site: right antecubital; tw2 12:47 Follow up: Response: No adverse reaction; IV Status: Completed infusion; IV Intake: 10mlsv 13:55 Drug: LevOfloxacin 500 mg Route: PO; sv 13:55 Follow up: Response: Medication administered at discharge. sv Disposition: 08/03/20 13:40 Discharged to Home. Impression: Urinary tract infection, site not specified, End stage renal disease - on hd, Weakness, Type 1 diabetes mellitus. - Condition is Stable. - Discharge Instructions: Bacteremia, Dysuria, Urinary Tract Infection, Adult, Weakness, Fatigue, Urinary Tract Infection, Adult, [id number], Dialysis, End-Stage Kidney Disease, Weakness, [id number], Type 1 Diabetes Mellitus, Self Care, Adult. - Prescriptions for Levaquin 250 mg Oral Tablet - take 1 tablet by ORAL route as directed for 10 days take 1 every other day, Q48 hours; 4 tablet. - Medication Reconciliation Form, Thank You Letter, Antibiotic Education, Prescription Opioid Use form. - Follow up: Private Physician; When: 1 - 2 days; Reason: Recheck today's complaints, Continuance of care, Re-evaluation by your physician. Follow up: Elizabet Flores; When: 1 - 2 days; Reason: Recheck today's complaints, Continuance of care, Re-evaluation by your physician. - Problem is new. - Symptoms have improved. Signatures: Dispatcher [employer] [facility] Kira Aguiar RN RN Sukhi Chaves MD MD cha Smirch, Shelby, RN RN ss Libertad Chavez RN RN tw2 Corrections: (The following items were deleted from the chart) 12:48 11:55 CORONAVIRUS+MR.LAB.BRZ ordered. [facility] 12:49 11:55 Influenza Screen (A \T\ B)+BA.LAB.BRZ ordered. [facility] 13:55 13:40 08/03/2020 13:40 Discharged to Home. Impression: Urinary tract infection, site sv not specified; End stage renal disease - on hd; Weakness; Type 1 diabetes mellitus. Condition is Stable. Discharge Instructions: Bacteremia, Dysuria, Urinary Tract Infection, Adult, Weakness, Fatigue, Urinary Tract Infection, Adult, [id number], Dialysis, End-Stage Kidney Disease, Weakness, [id number]. Prescriptions for Levaquin 250 mg Oral Tablet - take 1 tablet by ORAL route as directed for 10 days take 1 every other day, Q48 hours; 5 tablet. and Forms are Medication Reconciliation Form, Thank You Letter, Antibiotic Education, Prescription Opioid Use. Follow up: Private Physician; When: 1 - 2 days; Reason: Recheck today's complaints, Continuance of care, Re-evaluation by your physician. Follow up: Elizabet Flores; When: 1 - 2 days; Reason: Recheck today's complaints, Continuance of care, Re-evaluation by your physician. Problem is new. Symptoms have improved. beth
[2020-08-03] MEDS ORDERED: levoFLOXacin 500 MG TAB ONE (14:00)
[2020-08-03 14:05] VITALS: TEMP 97.2
[2020-08-03 14:06] VITALS: BP 162/60
[2020-08-03 14:07] VITALS: O2SAT 99
[2020-08-03 14:14] LABS: SARS-COV-2 RT PCR NEGATIVE (NEGATIVE)
--- NOTE | 2020-08-04 06:29 | EKG ---
Test Date: 2020-08-03 Test Time: 12:19:07 [employer] Marketing Coordinator: ISABEL MEASUREMENT RESULTS: Intervals: Rate: 75 ND: 156 QRSD: 96 QT: 386 QTc: 431 [place]: P: 65 ND: 156 QRS: 13 T: 111 INTERPRETIVE STATEMENTS: Normal sinus rhythm Nonspecific ST and T wave abnormality Abnormal ECG Compared to ECG 06/25/2020 07:37:58 No significant changes Electronically Signed On 08-04-20 06:27:13 [employer] IN[employer] by William Uribe
== END 2020-08-03 13:55 | disposition home or self-care (01) ==
LOC: ER 08:59
DX: N39.0 Urinary tract infection, site not specified (principal); E10.22 Type 1 diabetes mellitus with diabetic chronic kidney disease; I12.0 Hypertensive chronic kidney disease with stage 5 chronic kidney disease or end stage renal disease; N18.6 End stage renal disease; Z20.822 Contact with and (suspected) exposure to COVID-19; Z99.2 Dependence on renal dialysis; Z88.5 Allergy status to narcotic agent; Z88.8 Allergy status to other drugs, medicaments and biological substances; Z91.048 Other nonmedicinal substance allergy status
CPT/HCPCS: 87040 ×2; 87088; 85025; 87086; 80048; 36415; 83735; 85610; 80076; 83605; 81003; 84484; 83880; 0240U; 71045; J0696; 87205; 93005; 96374; 99284

== ENCOUNTER 2020-09-03 14:15 | Inpatient (IN) | payer MEDICARE ==
--- OUTSIDE RECORDS SUMMARY | 2020-09-03 14:19 | XMS REPORT | Continuity of Care Document ---
:1955 Author Organization [facility] t Address [address] [place]. [address] [place] [address] Care Team Providers Name Role Phone Anders Johnson MD Primary Care Physician Randa BURROUGHS, T. Attending Clinician Iain Leahy MD Attending Clinician Walter Ashley MD. Attending Clinician Licha CLERICAL ADJUSTER Attending Clinician Collins Chavira MD Attending Clinician Fermin BO Attending Clinician Sly BURROUGHS Attending Clinician ARMOND Admitting Clinician Unavailable Collins Chavira MD Admitting Clinician RANDA Admitting Clinician Unavailable Payers Payer Name Policy Type Policy Effective Date Expiration Date Sour ce Number MEDICAREMEDICARE PART [id number] 2020 Keo basurtoterry Guy AND 00:00:00 Alevism [id number] [address], [facility] Problems Condition Condition Condition Status Onset [...] Stop Date Source Natural father Heart disease [place] [facility] Natural father Hypertension [place] [facility] Natural father Thrombophlebitis [place] Natural mother Diabetes [facility] Natural mother Hyperlipidemia [place] Natural mother Hypertension [place] [facility] Natural mother Kidney disease [place] [facility] Social History Social Habit Start Date Stop Date Quantity Comments Source History of tobacco Current smoker [facility] use Sex Assigned At [facility] ethodi Cigarettes smoked 2020-05-14 2020-05-[address] [facility] current (pack per 00:00:00 00:00:00 day) - Reported Cigarette 2020-05-14 2020-05-14 [facility] ist pack-years 00:00:00 00:00:00 Tobacco use and 2020-05-14 2020-05-14 Never used [facility] ethodist exposure 00:00:00 00:00:00 Alcohol intake 2020-05-14 2020-05-14 Current drinker [place] [facility] 00:00:00 00:00:00 of alcohol (finding) Alcohol Comment 2020-03-23 2020-03-23 [facility] Smoking Status Start Date Stop Date Source Former smoker 2020-05-14 00:00:00 2020-05-14 00:00:[address] [facility] Medications Ordered Filled Start Stop Current [...] 2 more days insulin 2019-07- No 30U [id number] Inject 30 Davila lispro 07-14 [id number] Units Metho di (HUMALOG 15:24: 00:[address] U-100 59 :00 skin 3 INSULIN (three) SUBQ) times a day before meals. insulin 2019-07 Yes 30U Q.[id number] Inject 30 [place]ila lispro 07-14 [id number] Units Method i (HumaLOG 00:00: 3D under the st U-100 00 skin 3 Insulin) (three) 100 unit/mL times a injection day before meals. HYDROcodone 2019-07 2020- No acute pain 1{tbl} Q8H Take 1 Davila -acetaminop 07-14 tablet by Me elías tabares ([place]) 00:00: 23:[address] 5-325 mg 00 [...] 2020-0 Yes 45U Q.5D Inject 45 Veena pdero Solostar 9-08 Units Methodi U-100 00:00: under [...] Parrish Body temperature 2020-05-14 12:50:00 36.44 Katharina Marco A Parrish Oxygen saturation in 2020-05-14 08:47:59 94 /min Giovanni Parrish Arterial blood by Pulse oximetry Body weight 2020-05-13 23:29:00 111.131 kg Giovanni Parrish BMI 2020-05-13 23:29:00 39.54 kg/m2 Giovanni Parrish Body height 2020-05-13 11:05:00 167.6 cm Giovanni Parrish Procedures Procedure Date / Time Performing Clinician Source Performed POC GLUCOSE 2020-05-14 13:43:00 ArmondSusan goldsmith [facility] HEPATITIS B SURFACE 2020-05-14 09:20:00 SandraElizabet Giovanni Alevism ANTIGEN HEPATITIS B SURFACE AB, 2020-05-14 09:20:00 Sandra TaranGriggs terry Alevism QUANTITATIVE HEMODIALYSIS 2020-05-14 08:33:22 Sandra Elizabet Giovanni Meth odist POC GLUCOSE 2020-05-14 07:19:00 Susan Leahy jayesh [facility] POC GLUCOSE 2020-05-13 20:43:00 ArmondSusan goldsmith [facility] POC GLUCOSE 2020-05-13 17:55:00 ArmondSusan [facility]ila [facility] POC GLUCOSE 2020-05-13 14:05:00 ArmondSusan [facility] POC GLUCOSE 2020-05-13 11:11:00 Armond Susan jayesh [facility] [place] AN PERIPHERAL BLOCK 2020-05-13 08:50:13 [place] on [facility]vism PROCEDURE FOR PAIN Bo Peter POC PANEL 2020-05-13 07:32:00 Fred Tolentino COMPREHENSIVE METABOLIC 2020-05-13 07:26:00 Fred Tolentino PANEL ESTIMATED GFR 2020-05-13 07:26:00 Fred Tolentino ECG PRE/POST OP 2020-05-11 14:54:11 Fred Tolentino HC COMPLETE BLD COUNT 2020-05-11 14:36:00 Fred Tolentino W/AUTO DIFF TYPE AND SCREEN 2020-05-11 14:36:00 Fred Tolentino HEMOGLOBIN A1C 2020-05-11 14:36:00 Fred Tolentino PROTHROMBIN TIME WITH INR 2020-05-11 14:36:00 Fred Tolentino PARTIAL THROMBOPLASTIN 2020-05-11 14:36:00 Fred Tolentino TIME (PTT) COVID-19 QUALITATIVE PCR 2020-05-11 14:36:00 Fred Tolentino POC GLUCOSE 2020-03-25 09:24:00 Fred Tolentino NV AN PERIPHERAL BLOCK 2020-03-25 09:08:41 [place]ma Ashley PROCEDURE FOR PAIN Bo Peter POC PANEL 2020-03-25 07:29:00 Fred Tolentino COMPREHENSIVE METABOLIC 2020-03-25 07:26:00 Fred Tolentino PANEL ESTIMATED GFR 2020-03-25 07:26:00 Fred Tolentino XR CHEST 2 VW 2020-03-23 11:14:10 Giovanni Ashley ECG PRE/POST OP 2020-03-23 10:47:09 Giovanni Ashley PARTIAL THROMBOPLASTIN 2020-03-23 09:23:00 Fred Tolentino TIME (PTT) PROTHROMBIN TIME WITH INR 2020-03-23 09:23:00 Fred Tolentino COVID-19 QUALITATIVE PCR 2020-03-23 09:23:00 Oscar Ashley HC COMPLETE BLD COUNT 2020-03-23 09:23:00 Fred Tolentino W/AUTO DIFF TYPE AND SCREEN 2020-03-23 09:23:00 Fred Tolentino Plan of Care Planned Activity Planned Date Details Comments Source Future Scheduled 2006-02-15 BREAST CANCER [facility] Test 00:00:00 SCREENING [code = BREAST CANCER SCREENING] Future Scheduled 2006-02-15 COLONOSCOPY SCREENING [place] [facility] Test 00:00:00 [code = COLONOSCOPY SCREENING] Future Scheduled 2006-02-15 SHINGLES VACCINES [place] [facility] Test 00:00:00 (#1) [code = SHINGLES VACCINES (#1)] Future Scheduled 1977-02-15 Screening for [place] [facility] Test 00:00:00 malignant neoplasm of cervix (procedure) [code = 506460835] Future Scheduled 1974-02-15 Hepatitis C screening [place] [facility] Test 00:00:00 (procedure) [code = 813820567] Future Scheduled 1972 COVID-19 VACCINE (1 [place] [facility] Test 00:00:00 of 2) [code = COVID-19 VACCINE (1 of 2)] Future Scheduled 1966-02-15 DIABETES: RETINAL EYE [place] [facility] Test 00:00:00 EXAM [code = DIABETES: RETINAL EYE EXAM] Future Scheduled 1966-02-15 DIABETIC FOOT EXAM [place] [facility] Test 00:00:00 [code = DIABETIC FOOT EXAM] Encounters Start End Encounter Admission Attending Care Care Encounter Source Date/Time Date/Time Type Type Clinicians Facility Department ID 2020-05-13 2020-05-14 Outpatient SUSAN LEAHY [facility] [id number] [place] 00:00:00 00:00:[address] 2020-05-11 2020-05-11 Outpatient RANDA [facility] [id number] [place] 00:00:00 00:00:00 IMRAN [address] 2020-04-01 2020-04-01 [facility] [id number] 06:36:00 10:10:00 Encounter Naveen Garza [id number] Collins Allison [id number] Surgical [id number] [place] 071 2020-04-01 2020-04-01 Anesthesia Demetrio Christensen [facility] [id number] 08:01:00 08:33:00 [facility] [id number] [place] [id number] Surgical [id number] Center 020 2020-03-25 2020-03-25 Outpatient RANDA Kathie 021 [id number] [place] 00:00:00 00:00:00 IMRAN [address] 2020-03-23 2020-03-23 Outpatient RANDA [facility] [id number] [place] 00:00:00 00:00:00 IMRAN [address] 2020-03-23 2020-03-23 Outpatient WOJCIECHOWS [facility] [id number] [place] 00:00:00 00:00:00 KI, [address] Results Test [...] workers refer to MMWR D ec2012/Vol. 62(No. 10);1-19 .Reference Interval: anti-HBs 9.99 I U/L or less ....... Pqbolenz33.00 I U/L or greater .... PositiveResults greater than 1,000.00 IU/L are report ed as greater than 1,000.00 IU/L. This assay should not be used for blood donor screening, associated re-e ntry protocols, or for screening Human Cell, Tissues and Cellular and Ti ssue-Based Products (HCT/P).Perform ed By: [employer] [place] [id number] aboratory Director: Lori Wooten MD [place] MethodistHepatitis B surface [id number] 14:16:56 Test Item Value Reference Range Interpretation Comments Hepatitis B surface Ab (test code = Reactive Non-reactive A 80135-1) Lab Interpretation (test code = Abnormal 69657-0) [facility] [id number] 13:44:18 Test Item Value Reference Range Interpretation Comments POC glucose (test code 173 mg/dL 65-99 H Opera tor Name: = 09600-8) Mao Morrow Device ID: [id number] able: RN Notified Lab Interpretation Abnormal (test code = 40058-5) [facility] surface [id number] 10:16:56 Test Item Value Reference Range Interpretation Comments Hepatitis B surface Ag (test Non-reactive Non-reactive code = 5195-3) [facility] [id number] 13:05:15 Test Item Value Reference Range Interpretation Comments POC sodium (test code = 135 mmol/L 048-325 2301-0) POC potassium (test 4.2 mmol/L 3.5-5 code = 6298-4) POC glucose (test code 235 mg/dL 65-99 H Opera tor Name: = 2339-0) [facility]le[facility] ID : [id number] POC hemoglobin (test 11.6 g/dL 12-16 L code = 718-7) POC hematocrit (test 34 % 37-47 L code = 4544-3) Lab Interpretation Abnormal (test code = 13486-9) [facility] [id number] 08:50:13Bo Ashley MD 05/13/2020 8:54 AMPeripheral Block Date/Time: 05/13/2020 8:34 AMPerformed by: Bo Ashley MDAuthorized by: Bo Ashley MD Start Time:05/13/2020 8:20 AMEnd Time: 05/13/2020 8:45 AMReason for Block: at surgeon's request Staff: Anesthesiologist: Bo Ashley MD Resident/CNC SERVICE TECHNICIAN/AA: James Toure, CNC SERVICE TECHNICIAN Performed by: Resident/CNC SERVICE TECHNICIAN/AAPreprocedure: patient identified, IV checked, site and side [...] ropivacaine.Medications AdministeredRopivacaine 0.5 % PF (mL), 20 mLF[place]ville MethodistComprehensive metabolic [id number] 07:59:23 Test Item Value Reference Range Interpretation Comments Sodium (test code = 133 See_Comment L [Automa matthew message] 8779-2) The system Sensopia generated this result transmit matthew reference range : 135 - 148 mEq/L. Th e reference range was not used to interpret this result as normal/abnormal . Potassium (test code = 4.2 See_Comment [Aut omated message] 9014-3) The system [employer]ens[employer] generated this result transmit matthew reference range : 3.5 - 5.0 mEq/L. Th e reference range was not used to interpret this result as normal/abnormal . Chloride (test code = 97 See_Comment L [Auto mated message] 0) The system [employer] generated this result transmit matthew reference range : 98 - 112 mEq/L. Th e reference range was not used to interpret this result as normal/abnormal . CO2 (test code = 23 See_Comment L [Automated message] 2028-03) The system [employer]ensopia generated this result transmit matthew reference range : 24 - 31 mEq/L. The reference range was not used to interpret this result as normal/abnormal . Anion gap (test code = 13@MENDOZA See_Comment [Aut omated message] 61699-2) The system [employer]ensopia generated this result transmit matthew reference range : 7 - 15 mEq/L. The reference range was not used to interpret this result as normal/abnormal . BUN (test code = 36 mg/dL 8-23 H 3094-0) Creatinine (test code = 3.07 mg/dL 0.5-0.9 H 2160-0) Glucose (test code = 250 mg/dL 65-99 H 2345-7) Calcium (test code = 9.1 mg/dL 8.8-10.2 36207-4) Protein (test code = 6.4 g/dL 6.3-8.3 2885-2) Albumin (test code = 3.8 g/dL 3.5-5 1751-7) A/G ratio (test code = 1.5 0.7-3.8 1759-0) Alkaline phosphatase 116 U/L 35-104 H (test code = 6768-6) AST (test code = 21 U/L 10-35 1920-8) ALT (test code = 13 U/L 5-50 1742-6) Total bilirubin (test 0.3 mg/dL 0.2-1.2 code = 1974-) Lab Interpretation Abnormal (test code = 04526-2) [place] MethodistEstimated [id number] 07:59:23 Test Item Value Reference Range Interpretation Comments Estimated GFR (test 15 mL/min/1.73 m2 A Luis oragus Units code = 5488) InterpretationG 1 >=90 [place] l or highG2 60-89 Mildly decrease dG3a 45-59 Mil dly to moderately decr hqtzgX3t 30-44 Moderately to s everely decreasedG4 15-29 Severe ly decreasedG5 <15 Kidney davis lureThe eGFR was calcul ated using the Chron ic Kidney Disease Epidemiology Collaboration ( CKD-EPI) equation. Interpretation is based on recommendati ons of the National [facility] [employer]-Kidn ey Disease Outcome s Quality Initiat hermes (NKF-KDOQI) pub lished in 2013. Lab Interpretation Abnormal (test code = 18314-0) [place] MethodistCOVID-19 qualitative [id number] 01:15:52 Test Item Value Reference Range Interpretation Comments Interpretation (test Negative results do code = 8643587) not preclude 2019-nCoV infection and should not be used as the sole basis for treatment or other patient management decisions. Negative results must be combined with clinical observations, patient history, and epidemiological information. COVID-19 qualitative Not-Detected Not-Detected PCR result (test code = 75203-5) COVID-19 qualitative See link below for C ase Number: PCR (test code = PDF Lab Report [id number] [id number]) [place] MethodistType and [id number] 18:16:00 Test Item Value Reference Range Interpretation Comments ABO grouping (test code = 883-9) A Rh type (test code = 36606-8) POS Antibody screen (gel) (test code = NEG 890-4) [place] MethodistPartial thromboplastin time, [id number] 15:59:01 Test Item Value Reference Range Interpretation Comments PTT (test code = 28.1 See_Comment PTT therape utic range for 3173-2) unfractionated heparin is61.0-112.0 se conds which corresponds to Anti-Xa0.3-0.7 U/ml. [Automat ed message] The system Sensopia generated this result tra nsmitted reference range : 23.0 - 36.0 sec. The refere nce range was not used to int erpret this result as keiry l/abnormal. [place] MethodistHemoglobin [id number] 15:58:56 Test Item Value Reference Range Interpretation Comments Hemoglobin A1C (test 8.6 % 4-5.6 H HbA1c c utoffs for code = 26806-2) diagnosing diabetes:4.0% - 5.6% = normal5.7% - 6.4% = increased risk for diabetes (prediabetes)9> =6.5% = pbsnunln6Ecvn s for glycemic contro l (ADA 2016)< 7.0% Ta rget for non adults with pearl betes. More or less stringent targe ts may be appropriate for individual omaira ents. <7.5% Target for Children and adolescents wit h type 1 diabetes. Lab Interpretation (test Abnormal code = 01972-4) [place] MethodistProthrombin time with [id number] 15:58:18 Test Item Value Reference Range Interpretation Comments Prothrombin time (test 15.5 See_Comment H [Aut omated message] code = 5902-2) The system [employer] generated this result transmitted ref erence range: 11.5 - 1 4.5 sec. The refere nce range was not u sed to interpret this result as normal/abnor mal. INR (test code = 1.2 The [facility] 00519-4) Normalized Rati o (INR) is a therapeuti c monitoring tool for patients who ar e stable on oral anticoagulant t herapy. An INR of 2.0-3 .0 is suggested for d eep vein thrombosis/pulm onary embolism. Lab Interpretation Abnormal (test code = 79967-1) [place] MethodistCBC with platelet and [id number] 15:47:50 Test Item Value Reference Range Interpretation Comments WBC (test code = 11.7 See_Comment H [Automated message] 64888-6) The system Sensopia generated this result transmit matthew reference range : 4.5 - 11.0 k/uL. Th e reference range was not used to interpret this result as normal/abnormal . RBC (test code = 3.46 m/uL 4.2-5.5 L 69393-3) HGB (test code = 718-7) 10.6 g/dL 12-16 L HCT (test code = 4544-3) 32.2 % 37-47 L MCV (test code = 787-2) 93.1 fL 82-100 MCH (test code = 785-6) 30.6 pg 27-34 MCHC (test code = 786-4) 32.9 g/dL 31-37 RDW - SD (test code = 46.5 fL 37-55 01666-0) MPV (test code = 9.6 fL 6.9-11 48862-9) Platelet count (test 239 K/uL 150-400 code = 39669-8) Nucleated RBC (test code 0.00 See_Comment [A utomated message] = 82555-2) The system [employer]opia generated this result transmit matthew reference range : /100 WBC. The reference range was not used to interpret this result as normal/abnormal . Neutrophils (test code = 76.1 % 39-69 H 75172-8) Lymphocytes (test code = 14.3 % 25-45 L 77822-3) Monocytes (test code = 6.6 % 0-10 29372-9) Eosinophils (test code = 2.3 % 0-5 07194-5) Basophils (test code = 0.3 % 0-1 03223-3) Immature granulocytes 0.4 % 0-1 (test code = 92109-1) Lab Interpretation (test Abnormal code = 69647-4) [facility] MethodistECG Pre/Post [id number] 15:43:26 Test Item Value Reference Range Interpretation Comments Ventricular rate (test 70 code = 253) Atrial rate (test code 70 = 255) NV interval (test code 158 = 266) QRSD [...] of 23-MAR-2020 10:47,-No significant change was found- [place] MethodistPeripheral [id number] 09:08:41WBo tyler MD 03/25/2020 9:13 AMPeripheral BlockDate/Time: 03/25/2020 7:36 AMPerformed by: Bo Ashley MDAuthorized by: Bo Ashley MD Patient Location: Pre-opStart Time: 03/25/2020 7:40 AMEnd Time: 03/25/2020 7:48 AMReason for Block: primary anesthetic Staff: Anesthesiologist: Bo Ashley MD Resident/CNC SERVICE TECHNICIAN/AA: Brook Hernandez CRNA Performed by: AnesthesiologistPreprocedure: patient [...] stimulator.Medications AdministeredRopivacaine 0.5 % PF (mL), 15 mLHoupaul a. dever [facility] school MethodistXR Chest 2 [id number] 11:36:18Hm Interface, Radiology Results 03/23/2020 11:39 AM [...] Bones: No suspicious osseous lesions. Osseous degenerative changes.[facility]-[id number] Alevism
[2020-09-03 14:55] LABS: Absolute Lymphocytes (CBC) 1.1 K/uL (0.7-4.9); Basophils % 1.2 % (0-1.3); Hematocrit 30.8 % (36.0-45.0); MPV 7.4 fL (7.6-11.3); RBC Red Blood Cell Count 3.36 M/uL (3.86-4.86)
[2020-09-03 15:04] LABS: Protime INR 1.02
--- NOTE | 2020-09-03 15:11 | RAD REPORT ---
EXAM DESCRIPTION: RAD - Chest Single View - 09/03/2020 3:05 pm CLINICAL HISTORY: SOB Chest pain. COMPARISON: Chest Single View dated 08/03/2020; Chest Pa And Lat (2 Views) dated 06/25/2020; Chest Si ngle View dated 11/18/2019; Chest Single View dated 11/17/2019 FINDINGS: Portable technique limits examination quality. Mild interstitial pulmonary edema is seen. The heart is upper limit normal in size. Right-sided venou s catheter has tip in the right atrium.Cervical hardware plate present. IMPRESSION: Mild interstitial pulmonary edema.
[2020-09-03] MEDS ORDERED: NA CHLORIDE 0.9% 1,000 ML IV PRN (15:12)
[2020-09-03] MEDS ORDERED: MANNITOL 25% 12.5 GM/50 ML VIAL IV PRN (15:12)
--- NOTE | 2020-09-03 15:20 | P.CNS ---
Date of Consult: 09/03/20 Reason for Consult: ESRD management, suspected bacteremia Requesting Physician: Gasper Lazcano Chief Complaint: fever during dialysis History of Present Illness: 65 y o female pt with hx of ESRD on dial;ysis who was said to have had issues with feevr and chills during dialysis. she has been having these episodes during dialysis for a while and there was concerns about adverse events so she was sent to the Ed for evaluation.she did report feeling lethargic and sweaty but denied any episode of cough, n/v or burning urine. no reports of diarrhea or chest pain. She has a CVC dialysis catheter ansd there is concerns about bacteremia perhaps CLABSI. Allergies promethazine [From Phenergan] Allergy (Severe, Verified 06/25/20 18:46) restless codeine Allergy (Verified 11/18/19 00:55) Anaphylaxis adhesive tape Adverse Reaction (Verified 11/18/19 00:55) Itching/Hives/Rash Home Medications: Aspirin [Aspirin EC 325 MG] 325 mg PO BEDTIME 11/17/19 Atorvastatin Calcium [Lipitor] 40 mg PO BEDTIME 11/17/19 Bupropion *Xl* [Wellbutrin XL*] 150 mg PO DAILY 11/17/19 Cholecalciferol (Vitamin D3) [Vitamin D3] 50 mcg PO DAILY 11/17/19 Insulin Glargine,Hum.rec.anlog [Lantus Solostar] 45 units SQ BID 11/17/19 Insulin Lispro [Humalog Kwikpen U-100] 30 units SQ TIDWM 11/17/19 Loperamide [Imodium*] 2 mg PO QIDP PRN 11/17/19 Sertraline [Zoloft*] 100 mg PO BID 11/17/19 allopurinoL [Allopurinol] 100 mg PO DAILY 11/17/19 Metoprolol Succinate [Toprol Xl*] 50 mg PO BID 6AM 6PM #60 tab 11/25/19 Pantoprazole [Protonix Tab*] 40 mg PO ACB #30 tab 11/25/19 - Past Medical/Surgical History Diabetic: Yes -: IDDM -: Hypertension -: Hypothyroidism -: Chronic kidney disease stage 4 -: hyperlipidemia -: depression -: Back fusion -: bilateral total knee replacements -: bilateral carpal tunnel sx -: c section -: thyroidectomy -: neck fusion - Family History Mother Medical History: Heart disease, Hypertension, Lung disease, Cancer Notes: breast ca Father Medical History: Heart disease, Hypertension - Social History Alcohol use: Yes CD- Drugs: No Caffeine use: Yes Review of Systems General: Fever, Chills, Sweats Eyes: Unremarkable ENT: Unremarkable Cardiovascular: Unremarkable Gastrointestinal: Unremarkable Genitourinary: Unremarkable Musculoskeletal: Unremarkable Integumentary: Unremarkable Neurological: Unremarkable Physical Examination General: Alert, Oriented x3, Cooperative HEENT: Atraumatic, Normocephalic Neck: Supple Respiratory: Clear to auscultation bilaterally Cardiovascular: No edema, Regular rate/rhythm, Normal S1 S2 Gastrointestinal: Soft and benign Musculoskeletal: No swelling Neurological: Normal speech, Normal strength at 5/5 x4 extr, Cranial nerves 3-12 intact Laboratory Data (last 24 hrs) 09/03/20 14:43: PT 11.7, INR 1.02 09/03/20 14:43: WBC 10.10, Hgb 10.3 L, Hct 30.8 L, Plt Count 233 Conclusions/Impression: ESRD Bacteremia-suspected. Hypertension Diabetes type 2 Anemia of renal disease. Plan: we think she may have bacteremia. we will obtain blood cuiltures ansd start empiric antibiotic of vanc and cefepime pending further review. we will complete dialysis today and review labs in am. we will continue phosphate binders with meals and dose meds for eGFR.
[2020-09-03 15:30] LABS: ALT/SGPT 22 U/L (12-78); AST/SGOT 15 U/L (15-37); Albumin 3.1 g/dL (3.4-5.0); Alkaline Phosphatase 119 U/L (45-117); BUN Blood Urea Nitrogen 65 mg/dL (7-18); Bicarbonate 25 mmol/L (21-32); Bilirubin Direct < 0.1 mg/dL (0-0.2); Bilirubin Total 0.3 mg/dL (0.2-1.0); Glucose Level 389 mg/dL (74-106); NT PRO-BNP 2762 pg/mL (<125); Potassium 4.7 mmol/L (3.5-5.1); Protein, Total 6.8 g/dL (6.4-8.2); Sodium Level 135 mmol/L (136-145); Troponin (Emerg Dept Use Only) < 0.02 ng/mL (0.0-0.045)
[2020-09-03] MEDS ORDERED: CEFEPIME 1 GM/VIAL IV SCH (15:30)
--- NOTE | 2020-09-03 15:43 | EDPHYS ---
Physician Documentation [facility] Name: Meseret Gallego Age: 65 yrs Sex: Female : 1955 Arrival Date: 09/03/2020 Time: 14:20 Bed 24 Private MD: ED Physician Gasper Lazcano HPI: 09/03 17:56 This 65 yrs old Female presents to ER via Wheelchair with complaints of kdr Dialysis Catheter Problem. 17:57 The last two dialysis sessions have lasted only about 1.5 hrs due to the patient kdr begging to shake. No focal cause was found so the patient was sent tot the ED for admission by an outside Manager Customs for admission and dialysis. The patient feels that she is about 7 liters fluids overloaded due to the failure to complete her recent dialysis sessions. Severity of symptoms: At their worst the symptoms were mild in the emergency department the symptoms are unchanged have resolved. The patient has not experienced similar symptoms in the past. The patient has not recently seen a physician. Historical: - Allergies: 14:25 Codeine; ll1 14:25 Phenergan; ll1 14:25 Tape; ll1 - PMHx: 14:25 Diabetes - IDDM; Dialysis; Hypertension; Hypothyroidism; ll1 - Immunization history:: Flu vaccine is up to date. - Social history:: Smoking status: Patient denies any tobacco usage or history of. ROS: 17:57 Constitutional: Negative for fever, chills, and weight loss, Eyes: Negative for injury, kdr pain, redness, and discharge, ENT: Negative for injury, pain, and discharge, Neck: Negative for injury, pain, and swelling, Cardiovascular: Negative for chest pain, palpitations, and edema, Respiratory: Negative for shortness of breath, cough, wheezing, and pleuritic chest pain, Abdomen/GI: Negative for abdominal pain, nausea, vomiting, diarrhea, and constipation, Back: Negative for injury and pain, : Negative for injury, bleeding, discharge, and swelling, MS/Extremity: Negative for injury and deformity, Skin: Negative for injury, rash, and discoloration, Neuro: Negative for headache, weakness, numbness, tingling, and seizure activity. Psych: Negative for depression, anxiety, suicide ideation, homicidal ideation, and hallucinations, Allergy/Immunology: Negative for hives, rash, and allergies, Endocrine: Negative for neck swelling, polydipsia, polyuria, polyphagia, and marked weight changes, Hematologic/Lymphatic: Negative for swollen nodes, abnormal bleeding, and unusual bruising. 17:57 Respiratory: Positive for shortness of breath, on exertion. kdr Exam: 17:57 Constitutional: This is a well developed, well nourished patient who is awake, alert, kdr and in no acute distress. 17:57 Head/Face: Normocephalic, atraumatic. Eyes: Pupils equal round and reactive to light, kdr extra-ocular motions intact. Lids and lashes normal. Conjunctiva and sclera are non-icteric and not injected. Cornea within normal limits. Periorbital areas with no swelling, redness, or edema. Neck: Trachea midline, no thyromegaly or masses palpated, and no cervical lymphadenopathy. Supple, full range of motion without nuchal rigidity, or vertebral point tenderness. No Meningismus. Chest/axilla: Normal chest wall appearance and motion. Nontender with no deformity. No lesions are appreciated. Cardiovascular: Regular rate and rhythm with a normal S1 and S2. No gallops, murmurs, or rubs. Normal PMI, no JVD. No pulse deficits. Abdomen/GI: Soft, non-tender, with normal bowel sounds. No distension or tympany. No guarding or rebound. No evidence of tenderness throughout. Back: No spinal tenderness. No costovertebral tenderness. Full range of motion. Skin: Warm, dry with normal turgor. Normal color with no rashes, no lesions, and no evidence of cellulitis. 17:57 Respiratory: the patient does not display signs of respiratory distress, Respirations: normal, Breath sounds: rales. 18:55 ECG was reviewed by the Attending Physician. kdr Vital Signs: 14:22 BP 110 / 93; Pulse 77; Resp 18; Temp 98.1; Pulse Ox 100% ; Weight 109.77 kg; Height 5 ll1 ft. 6 in. (167.64 cm); Pain 0/10; 14:38 BP 138 / 60; Pulse 82; Resp 16 S; Pulse Ox 100% on R/A; Pain 0/10; ec1 17:00 BP 124 / 55; Pulse 80; Resp 20 S; Pulse Ox 100% on R/A; ec1 14:22 Body Mass Index 39.06 (109.77 kg, 167.64 cm) ll1 MDM: 15:42 Patient medically screened. kdr 17:57 Data reviewed: vital signs, nurses notes, lab test result(s), radiologic studies. kdr Counseling: I had a detailed discussion with the patient and/or guardian regarding: the historical points, exam findings, and any diagnostic results supporting the discharge/admit diagnosis, lab results, radiology results, the need for further work-up and treatment in the hospital. 09/03 14:27 Order name: Basic Metabolic Panel; Complete Time: 15:42 [facility] 09/03 14:27 Order name: CBC with Diff; Complete Time: 15:42 [facility] 09/03 14:27 Order name: LFT's; Complete Time: 15:42 [facility] 09/03 14:27 Order name: Magnesium; Complete Time: 15:42 [facility] 09/03 14:27 Order name: NT PRO-BNP; Complete Time: 15:42 [facility] 09/03 14:27 Order name: PT-INR; Complete Time: 15:42 [facility] 09/03 14:27 Order name: Troponin (emerg Dept Use Only); Complete Time: 15:42 [facility] 09/03 15:14 Order name: HCV w/reflex PCR [facility] 09/03 15:14 Order name: Hep B Core Ab, Tot/reflex IgM [facility] 09/03 15:14 Order name: Hep B Surface AG w/ Confirm [facility] 09/03 15:14 Order name: Hepatitis B Surface Antibody [facility] 09/03 15:24 Order name: Blood Culture [facility] 09/03 15:44 Order name: COVID-19 : Document "Date of Symptom Onset" if Symptomatic. 09/03 14:27 Order name: XRAY Chest (1 view); Complete Time: 15:42 [facility] 09/03 14:27 Order name: EKG; Complete Time: 14:28 [facility] 09/03 14:27 Order name: Cardiac monitoring; Complete Time: 14:45 [facility] 09/03 14:27 Order name: EKG - Nurse/Tech; Complete Time: 14:45 [facility] 09/03 14:27 Order name: IV Saline Lock; Complete Time: 14:45 [facility] 09/03 14:27 Order name: Labs collected and sent; Complete Time: 14:45 [facility] 09/03 14:27 Order name: O2 Per Protocol; Complete Time: 14:45 kdr 09/03 17:01 Order name: Basic Metabolic Panel [facility] 09/03 17:01 Order name: Basic Metabolic Panel [facility] 09/03 17:01 Order name: Magnesium [facility] 09/03 17:01 Order name: Magnesium [facility] 09/03 17:01 Order name: CONS Physician Consult [facility] 09/03 17:01 Order name: Consistent Carb (ADA) 1800 Hair [facility] 09/03 17:01 Order name: T4 Free [facility] 09/03 17:01 Order name: Thyroid Stimulating Hormone [facility] 09/03 17:32 Order name: SARS-COV-2 RT PCR [facility] 09/03 14:27 Order name: O2 Sat Monitoring; Complete Time: 14:45 kdr EC:55 Rate is 80 beats/min. Rhythm is regular, Sinus Rhythm with Unifocal PVCs, Occasional kdr PVCs. QRS [place] is Normal. [place] interval is normal. QRS interval is normal. QT interval is normal. Clinical impression: NSR w/ Non-specific ST/T Changes. Administered Medications: No medications were administered Disposition: 09/03/20 15:42 Hospitalization ordered by Malena Johnson for Observation. Preliminary diagnosis are Failed dialysis session, Shortness of breath, Fluid overload. - Bed requested for Telemetry/MedSurg (observation). - Status is Observation. sg - Condition is Fair. - Problem is an acute exacerbation. - Symptoms have improved. Signatures: Dispatcher [employer] [facility] Mary Loyd RN RN dw Gay, Steven, RN RN sg Gasper Lazcano MD MD kdr Smirch, Shelby, RN RN ss Deb Billy RN RN ll1 Corrections: (The following items were deleted from the chart) 16:47 15:45 CORONAVIRUS ordered. [facility] 17:19 15:42 Hospitalization Ordered by Sudhakar Mendosa for Observation. Preliminary diagnosis ss is Failed dialysis session; Shortness of breath; Fluid overload. Bed requested for Telemetry/MedSurg (observation). Status is Observation. Condition is Fair. Problem is an acute exacerbation. Symptoms have improved. kdr 17:56 17:19 09/03/2020 15:42 Hospitalization Ordered by Sudhakar Mendosa for Observation. kdr Preliminary diagnosis is Failed dialysis session; Shortness of breath; Fluid overload. Bed requested for [facility] ER HOLD. Status is Observation. Condition is Fair. Problem is an acute exacerbation. Symptoms have improved. ss 18:49 17:56 09/03/2020 15:42 Hospitalization Ordered by A Alex BURROUGHS for Observation. dw Preliminary diagnosis is Failed dialysis session; Shortness of breath; Fluid overload. Bed requested for [facility] ER HOLD. Status is Observation. Condition is Fair. Problem is an acute exacerbation. Symptoms have improved. kdr 20:32 18:49 09/03/2020 15:42 Hospitalization Ordered by A Alex BURROUGHS for Observation. sg Preliminary diagnosis is Failed dialysis session; Shortness of breath; Fluid overload. Bed requested for Telemetry/MedSurg (observation). Status is Observation. Condition is Fair. Problem is an acute exacerbation. Symptoms have improved. dw
--- NOTE | 2020-09-03 15:43 | ER ---
Nurse's Notes [facility] Name: Meseret Gallego Age: 65 yrs Sex: Female : 1955 Arrival Date: 09/03/2020 Time: 14:20 Bed 24 Private MD: Diagnosis: Failed dialysis session;Shortness of breath;Fluid overload Presentation: 09/03 14:22 Chief complaint: Patient states: Jerking/shaking with dialysis for the past two weeks. ll1 They can only do about 1.5 hours per dialysis visit. + SOB with any exertion. Sent by Dialysis doctor for eval. Coronavirus screen: Client denies travel out of the [place] in the last 14 days. At this time, the client does not indicate any symptoms associated with coronavirus-19. Ebola Screen: Patient denies travel to an Ebola-affected area in the 21 days before illness onset. Initial Sepsis Screen: Does the patient meet any 2 criteria? No. Patient's initial sepsis screen is negative. Does the patient have a suspected source of infection? Yes: Other: dialysis cath problem. Risk Assessment: Do you want to hurt yourself or someone else? Patient reports no desire to harm self or others. Onset of symptoms was August 20, 2020. 14:22 Method Of Arrival: Wheelchair ll1 14:22 Acuity: CHRISTOPHER 3 ll1 Historical: - Allergies: 14:25 Codeine; ll1 14:25 Phenergan; ll1 14:25 Tape; ll1 - PMHx: 14:25 Diabetes - IDDM; Dialysis; Hypertension; Hypothyroidism; ll1 - Immunization history:: Flu vaccine is up to date. - Social history:: Smoking status: Patient denies any tobacco usage or history of. Screenin:43 Abuse screen: Denies threats or abuse. Denies injuries from another. Nutritional ec1 screening: No deficits noted. Tuberculosis screening: No symptoms or risk factors identified. Fall Risk Fall in past 12 months (25 points). Secondary diagnosis (15 points) IV access (20 points). Ambulatory Aid- Crutches/Cane/Walker (15 pts). Gait- Weak (10 pts.). Mental Status- Oriented to own ability (0 pts). Assessment: 14:43 General: Appears in no apparent distress. comfortable. Pain: Denies pain. Neuro: Level ec1 of Consciousness is awake, alert, obeys commands, Oriented to person, place, time, situation. Cardiovascular: Rhythm is sinus rhythm. Respiratory: Airway is patent Respiratory effort is even, unlabored. GI: No signs and/or symptoms were reported involving the gastrointestinal system. : No signs and/or symptoms were reported regarding the genitourinary system. EENT: No signs and/or symptoms were reported regarding the EENT system. Derm: No signs and/or symptoms reported regarding the dermatologic system. Musculoskeletal: No signs and/or symptoms reported regarding the musculoskeletal system. Vital Signs: 14:22 BP 110 / 93; Pulse 77; Resp 18; Temp 98.1; Pulse Ox 100% ; Weight 109.77 kg; Height 5 ll1 ft. 6 in. (167.64 cm); Pain 0/10; 14:38 BP 138 / 60; Pulse 82; Resp 16 S; Pulse Ox 100% on R/A; Pain 0/10; ec1 17:00 BP 124 / 55; Pulse 80; Resp 20 S; Pulse Ox 100% on R/A; ec1 14:22 Body Mass Index 39.06 (109.77 kg, 167.64 cm) ll1 ED Course: 14:20 Patient arrived in ED. ds1 14:22 Arm band placed on Patient placed in an exam room, on a stretcher. ll1 14:24 Triage completed. ll1 14:26 Gasper Lazcano MD is Attending Physician. kdr 14:30 Elsa Pinzon, PERRI is Primary Nurse. ec1 14:42 Inserted saline lock: 20 gauge in right antecubital area, using aseptic technique. ec1 Blood collected. 14:43 Patient has correct armband on for positive identification. Bed in low position. Call ec1 light in reach. Side rails up X2. 14:45 Initial lab(s) drawn, by ED staff, sent to lab. EKG done, by ED staff, reviewed by jp3 Gasper Lazcano MD. 14:45 Patient maintains SpO2 saturation greater than 95% on room air. jp3 15:05 XRAY Chest (1 view) In Process Unspecified. EDMS 15:41 Sudhakar Mendosa is Hospitalizing Provider. kdr 15:50 First set of blood cultures drawn by me. jp3 16:00 Second set of blood cultures drawn by me. jp3 16:13 Diet: Patient given water. Tolerated well. quality assurance monitor body on. Pulse ox on. NIBP on. jp3 16:13 COVID-19 : Document "Date of Symptom Onset" if Symptomatic. Sent. jp3 16:13 Hep B Core Ab, Tot/reflex IgM Sent. jp3 16:13 Hep B Surface AG w/ Confirm Sent. jp3 16:13 Hepatitis B Surface Antibody Sent. jp3 16:13 COVID swab sent to lab. jp3 16:14 HCV w/reflex PCR Sent. jp3 17:22 Report given to Albert RAYO in dialysis unit. ec1 17:35 to dialysis via stretcher. ec1 17:56 Malena Johnson MD is Hospitalizing Provider. kdr 19:11 Report given to Kevon RAYO. ec1 Administered Medications: No medications were administered Outcome: 15:42 Decision to Hospitalize by Provider. kdr 20:32 Patient left the ED. sg Signatures: Dispatcher [employer] EDKevon Gusman, RN RN sg Gasper Lazcano MD MD [facility] Edel Coleman ds1 Lance Rojas jp3 Deb Billy, RN RN ll1 Elsa Pinzon, PERRI RN ec1
[2020-09-03] MEDS ORDERED: ALBUMIN HUMAN 25% 50 ML IV SCH (16:00)
[2020-09-03] MEDS ORDERED: VANCOMYCIN 1.5 GM in NA CHLORIDE 0.9% 250 ML IVPB ONE (17:00)
[2020-09-03 18:06] LABS: Thyroid Stimulating Hormone 4.67 uIU/mL (0.360-3.740)
[2020-09-03] MEDS: CEFEPIME/SWI 1gm 10 ML IV SCH (21:35)
[2020-09-03] MEDS: INSULIN -REGULAR HUMAN 50 UNIT/0.5 ML ML SQ SCH (21:44)
[2020-09-03] MEDS ORDERED: CEFEPIME/SWI 1gm 10 ML ONE (21:44)
[2020-09-03] MEDS: TRAMADOL HCL 50 MG TAB PO PRN (22:36)
[2020-09-04 00:11] VITALS: BMI 39.0
[2020-09-04 06:06] LABS: Absolute Lymphocytes (CBC) 1.4 K/uL (0.7-4.9); Basophils % 1.1 % (0-1.3); Lymphocytes % 13.4 % (15.3-44.8); RBC Red Blood Cell Count 3.16 M/uL (3.86-4.86)
[2020-09-04 06:13] LABS: Magnesium 1.9 mg/dL (1.8-2.4); Phosphorus 4.2 mg/dL (2.5-4.9); Potassium 4.2 mmol/L (3.5-5.1)
[2020-09-04] MEDS: TRAMADOL HCL 50 MG TAB PO PRN ×2 (06:52→12:03)
[2020-09-04] MEDS: INSULIN -REGULAR HUMAN 50 UNIT/0.5 ML ML SQ SCH ×4 (07:30→20:54)
--- NOTE | 2020-09-04 07:56 | EKG ---
Test Date: 2020-09-03 Test Time: 14:38:52 Machine Egg Washer: TOR MEASUREMENT RESULTS: Intervals: Rate: 80 MI: 160 QRSD: 92 QT: 382 QTc: 440 [place]: P: 77 MI: 160 QRS: 38 T: 87 INTERPRETIVE STATEMENTS: Sinus rhythm with occasional premature ventricular complexes Nonspecific T wave abnormality Abnormal ECG Compared to ECG 08/03/2020 12:19:07 Ventricular premature complex(es) now present T-wave abnormality now present ST (T wave) deviation no longer present Electronically Signed On 09-04-20 07:54:15 TERMINOLOGIST by William Uribe
[2020-09-04] MEDS: CEFEPIME/SWI 1gm 10 ML IV SCH (09:00)
[2020-09-04] MEDS ORDERED: POLYETHYL GLY 3350 17 GM/DOSE PO ONE (12:00)
[2020-09-04] MEDS ORDERED: HEPARIN 5000 UNIT/ML 1 ML VIAL SQ ONE (12:00)
[2020-09-04] MEDS: FUROSEMIDE 40 MG TABLET PO SCH (15:00)
[2020-09-04] MEDS: BUPROPION HCL XL 150 MG TAB PO SCH (15:54)
[2020-09-04] MEDS: LORATADINE 10 MG TAB PO SCH (15:54)
[2020-09-04] MEDS: CEFEPIME/SWI 1gm 10 ML IVP SCH (16:41)
[2020-09-04] MEDS: METOPROLOL XL 50 MG TAB PO SCH (18:57)
[2020-09-04] MEDS: MIDODRINE HCL 5 MG TABLET PO SCH (20:52)
[2020-09-04] MEDS: FAMOTIDINE 20 MG TAB PO SCH (20:52)
[2020-09-04] MEDS: ATORVASTATIN 20 MG TAB PO SCH (20:53)
[2020-09-04] MEDS: ASPIRIN EC 325 MG TABLET PO SCH (20:53)
[2020-09-04] MEDS: HEPARIN 5000 UNIT/ML 1 ML VIAL SQ SCH (20:53)
[2020-09-04] MEDS ORDERED: HOME MED 1 EA UNK (Famotidine [Famotidine] 40 MG Tablet) PO SCH (21:00)
[2020-09-04] MEDS ORDERED: HOME MED 1 EA UNK (Aspirin [Aspirin Ec 325 Mg] 325 MG Tablet.Dr) PO SCH (21:00)
[2020-09-05 00:25] VITALS: O2SAT 98
--- NOTE | 2020-09-05 01:36 | PN ---
Date of Progress Note: 09/04/2020 Chief Complaint: End-stage renal disease. History Of Present Illness: The patient was brought to the hospital because of fever and chills. Sh e denies chest pain, palpitation, syncope. She was complaining of some sweating and has episodes of cough. Denies nausea, vomiting, or dysuria. Today, she is complaining of constipation. Denies melena or hematemesis. The patient has complicate d history of hypertension, diabetes mellitus, chronic kidney disease. Apparently, the patient is pearl lysis dependent. The patient is scheduled to have dialysis today to control fluid overload. Dialysi s is scheduled today with ultrafiltration. Review of Systems: Denies PND or orthopnea. Physical Examination: Lungs: Diminished breath sounds at bases. Heart: S1, S2. Abdomen: Soft, benign. Extremities: Edema present. Impression And Plan: 1.End-stage renal disease. Dialysis is scheduled for today. The patient is undergoing workup for b acteremia and fever. 2.Hypertension. Continue blood pressure medication. 3.Diabetes mellitus. Continue insulin. 4.Anemia due to chronic kidney disease. Monitor hemoglobin level. Adjust XENIA. FREDDY/RENÉ Voice ID: [id number] Report ID: [id number]
[2020-09-05] MEDS: METOPROLOL XL 50 MG TAB PO SCH ×2 (06:17→17:09)
[2020-09-05] MEDS: FUROSEMIDE 40 MG TABLET PO SCH (08:26)
[2020-09-05] MEDS: INSULIN -REGULAR HUMAN 50 UNIT/0.5 ML ML SQ SCH ×4 (08:26→20:45)
[2020-09-05] MEDS: BUPROPION HCL XL 150 MG TAB PO SCH (08:27)
[2020-09-05] MEDS: HEPARIN 5000 UNIT/ML 1 ML VIAL SQ SCH ×2 (08:28→20:45)
[2020-09-05] MEDS: PANTOPRAZOLE 40MG TABLET PO SCH (08:28)
[2020-09-05] MEDS: MIDODRINE HCL 5 MG TABLET PO SCH (08:28)
[2020-09-05] MEDS: LORATADINE 10 MG TAB PO SCH ×2 (08:28→20:45)
[2020-09-05] MEDS: CEFEPIME/SWI 1gm 10 ML IVP SCH (08:29)
[2020-09-05] MEDS ORDERED: HOME MED 1 EA UNK (Furosemide [Furosemide] 80 MG Tablet) PO SCH (09:00)
--- NOTE | 2020-09-05 09:42 | PN ---
Date of Progress Note: 09/04/2020 Subjective: The patient was seen this morning for followup. She denies any complaints. She is sitt ing in the chair. She reports that during her yesterday's dialysis session, once again she started t o have those shaking and jerking movements and her dialysis was terminated after that. Objective: Vital Signs: Reviewed. HEENT: Unremarkable. Lungs: Clear to auscultation. Heart: Sounds normal. Abdomen: Soft. Bowel sounds normal. No guarding, rigidity, tenderness, or distention. Extremities: No leg edema. Laboratory Data: Today; sodium 139, potassium 4.2, chloride 106, bicarb 26, BUN 48, creatinine 2.98, glucose 149. White count 10.2, hemoglobin 9.6, platelets 212. Impression: 1.Rule out sepsis. 2.Myoclonic jerking. 3.End-stage renal disease, on hemodialysis. 4.Hypertension. 5.Diabetes mellitus with diabetic neuropathy, diabetic retinopathy, diabetic nephropathy. Plan: We will go ahead and continue current medications. Continue current empiric antibiotic. Cont inue to follow with landcare officer and we will see her tomorrow for followup. Continue insulin for diabetes management per order. CATHI/MODL Voice ID: [id number] Report ID: [id number]
--- NOTE | 2020-09-05 10:21 | HP ---
Date of Admission: 09/03/2020 Chief Complaint: Shaking. History Of Present Illness: This is a 65-year-old female patient, who has end- stage renal disease, on hemodialysis, came into emergency room with above- mentioned complaints. For the last 2 weeks or so, the patient has this problem with shaking of her body and that starts around 1 hour or so after she starts her dialysis, so in the beginning of the dialysis session, she does not have any such problem. At approximately about our into her dialysis session while she is still getting her dialysis, she starts to have some shaking, feels like chills type of feeling and then what she described as muscle jerking and this continues along with dialysis as continuing, so usually her dialysis is cut short in the last 2 weeks. Once dialysis is terminated, her symptoms goes away and she does not have any symptoms until the next dialysis session, once again in about an hour or so after the dialysis gets started. Her aquatic facility manager, Dr. Flores has made some changes in her dialysis treatment without improvement in her symptoms, so she came into the ER today. After she was evaluated, she was admitted to the hospital. When I saw her, she was getting her dialysis session and she had not gone long enough to have symptoms by the time I saw her. Denies any fever. She has dialysis graft placed in the left arm recently, which is not functioning, so she will have another surgery for revision of this graft. Allergies: TO CODEINE AND ADHESIVE TAPE AND ALLERGY TO PHENERGAN. Medications: List reviewed. Review of Systems: Neurology: As mentioned above. All other systems reviewed and negative. Past Medical History: Significant for diabetes mellitus with diabetic neuropathy, diabetic retinopathy, diabetic nephropathy leading to end-stage renal disease, on hemodialysis; hypertension; hyperlipidemia. Past Surgical History: AV fistula placement. Family History: Mother has hypertension, chronic kidney disease, hyperlipidemia. Social History: Negative for smoking, alcohol use. Physical Examination: Vital Signs: Temperature 98.1 when she came into the ER with pulse 77, respiratory rate 18, blood pressure 110/93, oxygen saturation 100%. Height 5 feet 6 inches, weight 242 pounds. General: Awake, alert, oriented, not in distress. HEENT: Head atraumatic, normocephalic. Conjunctivae nonerythematous. Sclerae white. Mouth, no thrush or edema noted. Ears/Nose, no mass, lesion, discharge noted. Neck: Supple. No JVD, lymph nodes, bruit, thyromegaly noted. Lungs: Bilateral good equal air entry. Clear to auscultation. No rhonchi. No rales. Heart: Normal heart sounds, no murmur or gallop. Abdomen: Soft, bowel sounds normal. No guarding, rigidity, tenderness, mass, hepatosplenomegaly, distention, or bruit noted. Extremities: No leg edema. No calf tenderness. Skin: No rash, ulcer, cellulitis. Lymphatics: No lymph node enlargement in neck, supraclavicular, infraclavicular region. Neuro: No focal neurological deficit. Chest: Unremarkable. External Genitalia: Deferred. Rectal: Deferred. Laboratory Data: White count 10.10, hemoglobin 10.3. Sodium 135, potassium 4.7, chloride 101, bicarb 25, BUN 65, creatinine 3.69, glucose 389. Liver function tests unremarkable. Troponin less than 0.02. TSH 4.67. COVID-19 test negative. Chest x-ray shows mild interstitial pulmonary edema. Impression: 1. Rule out sepsis. 2. Myoclonic jerking. 3. End-stage renal disease, on hemodialysis. 4. Diabetes mellitus with diabetic polyneuropathy. 5. Diabetes mellitus with diabetic retinopathy. 6. Diabetes mellitus with diabetic nephropathy. 7. Hypertension. 8. Hyperlipidemia. Plan: Admit the patient to hospital for further evaluation and management of this problem. We will consult her aquatic facility manager, Dr. Flores. I did call him and discussed details with him. The patient had outpatient echocardiogram done yesterday, we will follow up on results. Empiric antibiotics were started, we will continue that. Follow up on culture results. The patient is not acting like septic patient, but that is what is the consideration as Dr. Flores has, but I am not convinced about that, but we will definitely continue empiric antibiotics right now while aquatic facility manager is trying to look into this better. We may have to consider Neurology consultation if aquatic facility manager is not able to come up with any definite answer. Details and plan of treatment discussed with the patient. I will see her tomorrow for followup. CATHI/MODL Voice ID: [id number] [facility] HOSPITALNataly
--- NOTE | 2020-09-05 13:54 | PN ---
Date of Progress Note: 09/05/2020 Subjective: The patient was seen this morning for followup. She was sitting in the chair. Denied a ny complaints. Reported that she had dialysis yesterday and this dialysis session was scheduled for 2 hours and she did complete this 2-hour session. She usually starts to have her shaking problem wit hin about 2 hours or so after starting dialysis and yesterday she did have symptoms, but they were mu ch better than what she had in last 2 weeks. She is scheduled to have another dialysis tomorrow. No new complaints or problems reported. Objective: Vital Signs: Reviewed. HEENT: Unremarkable. Lungs: Clear to auscultation. Heart: Sounds normal. Abdomen: Soft. Bowel sounds normal. No guarding, rigidity, tenderness, or distention. Extremities: No leg edema. Impression: 1.Rule out sepsis. 2.End-stage renal disease, on hemodialysis. 3.Diabetes mellitus. Plan: We will go ahead and continue current medications. Continue current empiric antibiotics. Fol low with homicide squad commanding officer and tomorrow the patient will have dialysis session and depending on how she do es tomorrow, our plan is to possibly discharge her to go home with IV antibiotics to be administered with dialysis and that can be arranged with the help of Social Service. I will communicate with the homicide squad commanding officer. CATHI/MODL Voice ID: [id number] Report ID: [id number]
[2020-09-05] MEDS: FAMOTIDINE 20 MG TAB PO SCH (20:44)
[2020-09-05] MEDS: ATORVASTATIN 20 MG TAB PO SCH (20:44)
[2020-09-05] MEDS: ASPIRIN EC 325 MG TABLET PO SCH (20:45)
[2020-09-06] MEDS: TRAMADOL HCL 50 MG TAB PO PRN ×2 (05:19→13:33)
[2020-09-06] MEDS: METOPROLOL XL 50 MG TAB PO SCH ×2 (05:19→17:44)
[2020-09-06] MEDS: INSULIN -REGULAR HUMAN 50 UNIT/0.5 ML ML SQ SCH ×3 (07:30→16:30)
[2020-09-06] MEDS: PANTOPRAZOLE 40MG TABLET PO SCH (08:40)
[2020-09-06] MEDS: BUPROPION HCL XL 150 MG TAB PO SCH (08:40)
[2020-09-06] MEDS: HEPARIN 5000 UNIT/ML 1 ML VIAL SQ SCH (08:42)
[2020-09-06] MEDS: LORATADINE 10 MG TAB PO SCH (08:42)
[2020-09-06] MEDS: CEFEPIME/SWI 1gm 10 ML IVP SCH (09:00)
[2020-09-06] MEDS: FUROSEMIDE 40 MG TABLET PO SCH (09:00)
[2020-09-06 16:22] VITALS: BP 129/58; TEMP 97.3
[2020-09-06] MEDS ORDERED: VANCOMYCIN/NS 1 gm 1 GM/250 ML BAG IVPB STA (16:22)
--- NOTE | 2020-09-06 23:55 | PN ---
Date of Progress Note: 09/05/2020 Chief Complaint: End-stage renal disease. History Of Present Illness: The patient presented to the hospital because of fever and chills. She denies palpitation or syncope. Denies nausea or vomiting. The patient was complaining of constipati on and receives laxative. Review of Systems: Denies PND or orthopnea. Physical Examination: Lungs: Diminished breath sounds at bases. Heart: S1, S2. Extremities: Slight edema. Impression And Plan: 1.End-stage renal disease. Dialysis will be done on Sunday. Continue dialysis with ultrafiltration . 2.Hypertension. Continue blood pressure medication. 3.Possible sepsis bacteremia. Blood culture pending. 4.Diabetes mellitus. Continue insulin. EB/MODL Voice ID: [id number] Report ID: [id number]
--- NOTE | 2020-09-07 00:07 | PN ---
Date of Progress Note: 09/06/2020 Chief Complaint: End-stage renal disease. History Of Present Illness: The patient is scheduled to have dialysis today. The patient denies PND or orthopnea. The patient received laxatives for constipation. Bacteremia screening was done and b lood cultures are negative. The patient presented to the hospital because of fever and chills. She is on vancomycin. Review of Systems: Denies PND or orthopnea. Physical Examination: Lungs: Diminished breath sounds at bases. Heart: S1, S2. Abdomen: Soft, benign. Extremities: Slight edema. Impression And Plan: 1.End-stage renal disease. Dialysis will be done with ultrafiltration to control fluid overload. 2.Hypertension. Continue blood pressure medication. Hold blood pressure medication if systolic blo od pressure is below 110. 3.Anemia due to chronic kidney disease. Adjust XENIA according to hemoglobin level. FREDDY/RENÉ Voice ID: [id number] Report ID: [id number]
[2020-09-07 19:20] LABS: HBsAG Nonreactive (Nonreactive)
--- NOTE | 2020-09-21 12:52 | DS ---
Date of Discharge: 09/06/2020 Disposition: Discharged to go home. Physical Examination: HEENT: Unremarkable. Lungs: Clear to auscultation. Heart: Sounds normal. Abdomen: Soft. Bowel sounds normal. No guarding, rigidity, tenderness, distention. Extremities: No leg edema. Discharge Medications And Instructions: 1.Continue all prior home medications. 2.Dialysis Center to administer IV vancomycin after hemodialysis and duplicator punch operator to monitor this tr eatment and to decide about duration of treatment. 3.Follow up at my office in 1 week next. Laboratory Data: Upon admission on 09/03/2020; white count 10.10, hemoglobin 10.3, platelets 233. O n 09/04; white count 10.2, hemoglobin 9.6, platelets 212. Blood cultures remain negative. Upon admi ssion; sodium 135, potassium 4.7, chloride 101, bicarb 25, BUN 65, creatinine 3.69, glucose 389. Lidia er function tests unremarkable. Troponin less than 0.02. TSH 4.67. COVID-19 test negative. Hospital Course: This is a 65-year-old female patient who was admitted to the hospital with shaking problem. Please see dictated H and P for more information. The patient recently started to have thi s problem with shaking that starts usually within about an hour to hour and a half of beginning of di alysis and because of the shaking get so bad that her dialysis usually needed to be discontinued and this is going on for 2 weeks. She had some outpatient adjustment on the dialysis by her duplicator punch operator , which did not help. Echocardiogram was done as outpatient, which came back unremarkable, so she wa s sent to emergency room by duplicator punch operator for further evaluation and admission to the hospital and I s aw her in the emergency room. After she was admitted to the hospital, empiric antibiotics were start ed. Provider Network Manager, Dr. Flores was consulted and the patient received dialysis during this hospital stay and also received empiric antibiotics and her symptoms have improved now with use of empiric ant ibiotics, so plan is to discharge her to go home and continue this antibiotics on outpatient basis an d duplicator punch operator will manage these antibiotics through dialysis center. Final Diagnoses: 1.Rule out sepsis. 2.Myoclonic jerking. 3.End-stage renal disease, on hemodialysis. 4.Diabetes mellitus with diabetic polyneuropathy. 5.Diabetes mellitus with diabetic retinopathy. 6.Diabetes mellitus with diabetic nephropathy. 7.Hypertension. 8.Hyperlipidemia. CATHI/MODL Voice ID: [id number] Report ID: [id number]
== END 2020-09-06 19:15 | disposition home or self-care (01) | DRG 864 ==
LOC: ER 14:15 → ERHOLD 16:56 → 2ND 19:24 → OBSVTOIN 09-06 12:57
PROVIDERS: ADMIT Internal Medicine; ATTEND Internal Medicine
PROC: 5A1D70Z Performance of Urinary Filtration, Intermittent, Less than 6 Hours Per Day (ICD-10-PCS; principal; 2020-09-06)
DX: R50.9 Fever, unspecified (principal); N18.6 End stage renal disease; I12.0 Hypertensive chronic kidney disease with stage 5 chronic kidney disease or end stage renal disease; E11.22 Type 2 diabetes mellitus with diabetic chronic kidney disease; E11.319 Type 2 diabetes mellitus with unspecified diabetic retinopathy without macular edema; E11.42 Type 2 diabetes mellitus with diabetic polyneuropathy; D63.1 Anemia in chronic kidney disease; K59.00 Constipation, unspecified; G25.3 Myoclonus; E78.5 Hyperlipidemia, unspecified; Z88.5 Allergy status to narcotic agent; Z88.8 Allergy status to other drugs, medicaments and biological substances; Z91.048 Other nonmedicinal substance allergy status; Z79.82 Long term (current) use of aspirin; Z79.4 Long term (current) use of insulin; Z79.899 Other long term (current) drug therapy; Z96.653 Presence of artificial knee joint, bilateral; Z95.828 Presence of other vascular implants and grafts; Z99.2 Dependence on renal dialysis; Z20.822 Contact with and (suspected) exposure to COVID-19
CPT/HCPCS: 36415; 71045; 80048; 80076; 82947; 83735; 83880; 84100; 84439; 84443; 84484; 85025; 85610; 86704; 86706; 86803; 87040; 87340; 90935; 93005; 93307; 99285; G0378; J0692; J1644; J3370; J7050; P9047; U0003

== ENCOUNTER 2020-09-15 11:55 | Emergency (ER) | payer MEDICARE ==
--- OUTSIDE RECORDS SUMMARY | 2020-09-15 11:58 | XMS REPORT | Continuity of Care Document ---
:1955 Author Organization [facility] t Address [address] [place] [address] Care Team Providers Name Role Phone CINDY Attending Clinician Unavailable AMY Attending Clinician Unavailable Collins Chavira MD Attending Clinician Fermin BO Attending Clinician Sly BURROUGHS Attending Clinician RAUL Attending Clinician Unavailable CINDY Admitting Clinician Unavailable Collins Chavira MD Admitting Clinician AMY Admitting Clinician Unavailable Problems This patient has no known problems. Allergies, Adverse Reactions, Alerts This patient has no known allergies or adverse reactions. Medications This patient has no known medications. Procedures This patient has no known procedures. Encounters Start End Encounter Admission Attending Care Care Encounter Source Date/Time Date/Time Type Type Clinicians Facility Department ID 2020-05-13 2020-05-14 Outpatient S[facility]AN [facility] [id number] [place] 00:00:00 00:00:00 361 Fidelina olivarez 2020-05-11 2020-05-11 Outpatient AMY [facility] [id number] [place] 00:00:00 00:00:00 IMRAN [id number] 2020-04-01 2020-04-01 [facility] GARRY Chavira [id number] 06:36:00 10:10:00 Encounter Naveen Garza [id number] Collins Allison [id number] Surgical [id number] [place] [id number] 2020-04-01 2020-04-01 Anesthesia Demetrio Christensen [facility] [id number] 08:01:00 08:33:00 [facility] [id number] [place] [id number] Surgical [id number] [place] 020 2020-03-25 2020-03-25 Outpatient [facility] [id number] [place] 00:00:00 00:00:00 IMRAN [id number] 2020-03-23 2020-03-23 Outpatient AMY [facility] [id number] [place] 00:00:00 00:00:00 IMRAN [id number] 2020-03-23 2020-03-23 Outpatient MODESTA [facility] [id number] [place] 00:00:00 00:00:00 KI, [address] Results This patient has no known results.
--- NOTE | 2020-09-15 13:31 | ER ---
Nurse's Notes [facility] Name: Meseret Gallego Age: 65 yrs Sex: Female : 1955 Arrival Date: 09/15/2020 Time: 11:59 Bed 23 Private MD: Graham Johnson Diagnosis: Foreign body in left ear-removed Presentation: 09/15 13:01 Chief complaint: Patient states: i learned an important lesson, dont buy your q-tips at tw2 the [employer] store, i had an itchy ear about 3 am, and so i used a qtip and it came out without the cotton, i went ahead and went to dialysis anyways, but i need a little help getting it out, LEFT ear. Coronavirus screen: At this time, the client does not indicate any symptoms associated with coronavirus-19. Ebola Screen: Patient denies travel to an Ebola-affected area in the 21 days before illness onset. Initial Sepsis Screen: Does the patient meet any 2 criteria? No. Patient's initial sepsis screen is negative. Does the patient have a suspected source of infection? No. Patient's initial sepsis screen is negative. Risk Assessment: Do you want to hurt yourself or someone else? Patient reports no desire to harm self or others. Onset of symptoms was September 15, 2020. 13:01 Method Of Arrival: Wheelchair tw2 13:01 Acuity: CHRISTOPHER 4 tw2 Triage Assessment: 13:04 General: Appears in no apparent distress. obese, well groomed, Behavior is calm, tw2 cooperative, appropriate for age. Pain: Denies pain. EENT: Reports cotton still in LEFT ear. Historical: - Allergies: 13:04 Codeine; tw2 13:04 Phenergan; tw2 13:04 Tape; tw2 - Home Meds: 13:04 Synthroid Oral [Active]; Insulin: Regular Sub-Q [Active]; Furosemide Oral [Active]; tw2 - PMHx: 13:04 Diabetes - IDDM; Dialysis; Hypertension; Hypothyroidism; tw2 - Immunization history:: Adult Immunizations. - Social history:: Smoking status: . Vital Signs: 13:01 Pulse 73; Resp 17; Temp 97.8; Pulse Ox 100% on R/A; Pain 0/10; tw2 13:05 BP 104 / 60; Pulse 73; tw2 ED Course: 11:59 Patient arrived in ED. mr 11:59 Graham Johnson MD is Private Physician. mr 13:04 Triage completed. tw2 13:05 Arm band placed on. tw2 13:08 Emilee Childress FNP-C is [facility]. kb 13:08 Marcel Sykes MD is Attending Physician. kb Administered Medications: No medications were administered Outcome: 13:30 Discharge ordered by MD. kb 13:42 Patient left the ED. kb Signatures: Emilee Childress FNP-C FNP-Adrianne Costello mr ChavezLibertad, RN RN tw2
--- NOTE | 2020-09-15 13:31 | EDPHYS ---
Physician Documentation [facility] Name: Meseret Gallego Age: 65 yrs Sex: Female : 1955 Arrival Date: 09/15/2020 Time: 11:59 Bed 23 Private MD: Graham Johnson ED Physician Marcel Sykes HPI: 09/15 13:29 This 65 yrs old Female presents to ER via Wheelchair with complaints of kb Foreign Body In Ear. 13:29 The patient or guardian reports the patient has a suspected foreign body, of the ear, kb on the left. The reported likely foreign body is piece of cotton. Onset: The symptoms/episode began/occurred this morning, at 03:00. Current symptoms: foreign body sensation. Treatment Prior to Arrival: none. The patient has not experienced similar symptoms in the past. The patient has not recently seen a physician. Pt reports she used a Q-tip this morning and when she pulled it out of her ear the cotton wasn't on the stick.. Historical: - Allergies: 13:04 Codeine; tw2 13:04 Phenergan; tw2 13:04 Tape; tw2 - Home Meds: 13:04 Synthroid Oral [Active]; Insulin: Regular Sub-Q [Active]; Furosemide Oral [Active]; tw2 - PMHx: 13:04 Diabetes - IDDM; Dialysis; Hypertension; Hypothyroidism; tw2 - Immunization history:: Adult Immunizations. - Social history:: Smoking status: . ROS: 13:28 Constitutional: Negative for fever, chills, and weight loss, Skin: Negative for injury, kb rash, and discoloration, Neuro: Negative for headache, weakness, numbness, tingling, and seizure. 13:28 ENT: Positive for foreign body sensation. Exam: 13:28 Constitutional: This is a well developed, well nourished patient who is awake, alert, kb and in no acute distress. Head/Face: Normocephalic, atraumatic. MS/ Extremity: Pulses equal, no cyanosis. Neurovascular intact. Full, normal range of motion. Neuro: Awake and alert, GCS 15, oriented to person, place, time, and situation. Cranial nerves II-XII grossly intact. Moves all extremities. Sensory grossly intact. Cerebellar exam normal. Normal gait. 13:28 ENT: External ear(s): are unremarkable, Ear canal(s): foreign body, a piece of a Q-tip, in the left external ear canal, TM's: are normal. 13:28 Respiratory: the patient does not display signs of respiratory distress, Respirations: normal. Vital Signs: 13:01 Pulse 73; Resp 17; Temp 97.8; Pulse Ox 100% on R/A; Pain 0/10; tw2 13:05 BP 104 / 60; Pulse 73; tw2 Procedures: 13:28 Foreign Body Removal: cotton, from the left ear canal, by using alligator clamps, kb Dressing: none, The patient tolerated the removal well. MDM: 13:24 Patient medically screened. kb 13:27 Data reviewed: vital signs, nurses notes. Data interpreted: Pulse oximetry: on room air kb is 100 %. Interpretation: normal. Counseling: I had a detailed discussion with the patient and/or guardian regarding: the historical points, exam findings, and any diagnostic results supporting the discharge/admit diagnosis, the need for outpatient follow up, a family practitioner, to return to the emergency department if symptoms worsen or persist or if there are any questions or concerns that arise at home. Administered Medications: No medications were administered Disposition: 13:59 Co-signature as Attending Physician, Marcel Sykes MD. rn Disposition: 09/15/20 13:30 Discharged to Home. Impression: Foreign body in left ear - removed. - Condition is Stable. - Discharge Instructions: Ear Foreign Body, [id number]. - Medication Reconciliation Form, Thank You Letter, Antibiotic Education, Prescription Opioid Use form. - Follow up: Emergency Department; When: As needed; Reason: Worsening of condition. Follow up: Private Physician; When: 2 - 3 days; Reason: Recheck today's complaints, Continuance of care, Re-evaluation by your physician. Signatures: Emilee Childress, NILE-C PHARMACY AFFAIRS ASSISTANT-Marcel Shafer MD MD rn Wise, Tara, RN RN tw2 Corrections: (The following items were deleted from the chart) 13:42 13:30 09/15/2020 13:30 Discharged to Home. Impression: Foreign body in left ear - kb removed. Condition is Stable. Forms are Medication Reconciliation Form, Thank You Letter, Antibiotic Education, Prescription Opioid Use. Follow up: Emergency Department; When: As needed; Reason: Worsening of condition. Follow up: Private Physician; When: 2 - 3 days; Reason: Recheck today's complaints, Continuance of care, Re-evaluation by your physician. kb
[2020-09-15 21:38] VITALS: TEMP 97.8; O2SAT 100
[2020-09-15 21:53] VITALS: BP 104/60
== END 2020-09-15 13:42 | disposition home or self-care (01) ==
LOC: ER 11:55
PROC: 09C4XZZ Extirpation of Matter from Left External Auditory Canal, External Approach (ICD-10-PCS; principal; 2020-09-15)
DX: T16.2XXA Foreign body in left ear, initial encounter (principal); E11.9 Type 2 diabetes mellitus without complications; Z79.4 Long term (current) use of insulin; I10 Essential (primary) hypertension; E03.9 Hypothyroidism, unspecified
CPT/HCPCS: 99281

== ENCOUNTER 2020-12-27 01:32 | Emergency (ER) | payer MEDICARE ==
--- OUTSIDE RECORDS SUMMARY | 2020-12-27 01:34 | XMS REPORT | Continuity of Care Document ---
:1955 Author Organization [facility] t Address [address] Castaneda [address] [place] [id number] Care Team Providers Name Role Phone Anders Johnson MD Primary Care Physician Pob, Lab Main Attending Clinician Unavailable Only, Test Attending Clinician Unavailable Doctor Unassigned, Name Attending Clinician Unavailable Randa BURROUGHS, T. Attending Clinician Iain Leahy MD Attending Clinician aGbi BURROUGHS, J. Attending Clinician Licha DOWD Attending Clinician MD RANDA T. Attending Clinician Unavailable Collins Chavira MD Attending Clinician Fermin BO Attending Clinician Sly BURROUGHS Attending Clinician CINDY Admitting Clinician Unavailable MD RANDA T. Admitting Clinician Unavailable Collins Chavira MD Admitting Clinician RANDA Admitting Clinician Unavailable Payers Payer Name Policy Type Policy Effective Date Expiration Date Sour ce Number MEDICAREMEDICARE PART [id number] 2020 Keo Guy AND 00:00:00 Judaism [id number] 2019[place] Problems Condition Condition Condition Status [...] ents Source Name Type Date Date Clinician Vanessa Hernandezi Active Hives, [place] Tape-Kendra ty to Itching, 5-12 Method i icones adverse Rash 00:00: st reaction 00 s to drug Codeine Propensi Active Hallucinatio Other [place] to ns 5-12 reaction( Methodi adverse 00:00: s): st reaction 00 Anaphylax s to is drug Family History Family Member Diagnosis Comments Start Date Stop Date Source Natural father Heart disease [facility] [facility] Natural father Hypertension [facility] [facility] Natural father Thrombophlebitis [place] Natural mother Diabetes [facility] thodist Natural mother Hyperlipidemia [place] Natural mother Hypertension [place] [facility] Natural mother Kidney disease [place] [facility] Social History Social Habit Start Date Stop Date Quantity Comments Source History of tobacco Current smoker Ho jesse Parrish use Cigarettes smoked 2020-05-14 2020-05-14 Davila [facility] current (pack per 00:00:00 00:00:00 day) - Reported Cigarette 2020-05-14 2020-05-14 Davila Method ist pack-years 00:00:00 00:00:00 Tobacco use and 2020-05-14 2020-05-14 Never used Giovanni Conn ethodist exposure 00:00:00 00:00:00 Alcohol intake 2020-05-14 2020-05-14 Current drinker Marco Ajose Parrish 00:00:00 00:00:00 of alcohol (finding) Alcohol Comment 2020-03-23 2020-03-23 RARELY Giovanni Conn ethodist 00:00:00 00:00:00 Sex [birth year] Giovanni rizviodi 00:00:00 00:00:00 Smoking Status Start Date Stop Date Source Former smoker 2020-05-14 00:00:00 2020-05-14 00:00:00 Giovanni Parrish Medications Ordered Filled Start Stop Current Ordering [...] 32 daily. For 2 more days insulin 2019- 2020- No 30U [id number] Inject 30 Rison lispro 1-06 11-06 [id number] Units Metho di (HUMALOG 15:24: 00:[address] U-100 59 :00 skin 3 INSULIN (three) SUBQ) times a day before meals. insulin 2020- Yes 30U [id number] Inject 30 Rison lispro 1-06 [id number] Units Method i (HumaLOG 00:00: 3D under the st U-100 00 skin 3 Insulin) (three) 100 unit/mL times a injection day before meals. HYDROcodone 2020-1 2020- No acute pain 1{tbl} Q8H Take 1 Davila -acetaminop 1-06 11-09 tablet by Me elías tabares ([employer]) 00:00: 23:[address] 5-325 mg 00 :00 every 8 per tablet (eight) hours as needed for moderate pain for up to 3 days .acute pain. Max Daily Amount: 3 tablets HYDROcodone 2020-0 2020- No acute pain 1{tbl} Q6H Take 1 Davila -acetaminop 9-17 09-24 tablet by Me elías tabares ([employer]edo) 00:00: 23:[address] 5-325 mg 00 [...] 2020-0 Yes 150ug QD Take 150 [place] ne 8-12 mcg by Methodi (SYNTHROID) 00:00: mouth st 150 mcg 00 daily. tablet amLODIPine 2020-0 Yes 10mg QD Take 10 mg [place] (NORVASC) 8-03 by mouth Method i 10 [...] Source Systolic blood 2020-05-14 12:55:00 108 mm[Hg] [place] pressure Diastolic blood 2020-05-14 12:55:00 58 mm[Hg] [place] pressure Heart rate 2020-05-14 12:55:00 66 /min Giovanni Judaism Respiratory rate 2020-05-14 12:55:00 15 /min [place] Body temperature 2020-05-14 12:50:00 36.44 Katharina Marco A stewart [facility] Oxygen saturation in 2020-05-14 08:47:59 94 /min Giovanni Parrish Arterial blood by Pulse oximetry Body weight 2020-05-13 23:29:00 111.131 kg Giovanni Judaism BMI 2020-05-13 23:29:00 39.54 kg/m2 Giovanni Judaism Body height 2020-05-13 11:05:00 167.6 cm Giovanni Parrish Procedures Procedure Date / Time Performing Clinician Source Performed POC GLUCOSE 2020-05-14 13:43:00 Susan Leahy Me thodist HEPATITIS B SURFACE AB, 2020-05-14 09:20:00 Elizabet Flores Judaism QUANTITATIVE HEPATITIS B SURFACE 2020-05-14 09:20:00 Elizabet Flores Judaism ANTIGEN HEMODIALYSIS 2020-05-14 08:33:22 Elizabet Flores Meth odist POC GLUCOSE 2020-05-14 07:19:00 Susan Leahy Me thodist POC GLUCOSE 2020-05-13 20:43:00 Susan Leahy Me thodist POC GLUCOSE 2020-05-13 17:55:00 Susan Leahy Me thodist POC GLUCOSE 2020-05-13 14:05:00 Susan Leahy Me thodist POC GLUCOSE 2020-05-13 11:11:00 Susan Leahy Me thodist MN AN PERIPHERAL BLOCK 2020-05-13 08:50:13 Selma Ashley Judaism PROCEDURE FOR PAIN Bo MERCADO, AV FISTULA, 2020-05-13 08:50:00 Fred Tolentino UPPER EXTREMITY, DISTAL POC PANEL 2020-05-13 07:32:00 Fred Tolentino COMPREHENSIVE [...] (PTT) POC GLUCOSE 2020-03-25 09:24:00 Fred Tolentino MN AN PERIPHERAL BLOCK 2020-03-25 09:08:41 Selma Ashley PROCEDURE FOR PAIN Bo Peter CREATION, AV FISTULA, 2020-03-25 08:06:00 Fred Tolentino UPPER EXTREMITY, DISTAL POC PANEL 2020-03-25 07:29:00 Fred Tolentino COMPREHENSIVE METABOLIC 2020-03-25 07:26:00 Fred Tolentino PANEL ESTIMATED GFR 2020-03-25 07:26:00 Fred Tolentino XR CHEST 2 VW 2020-03-23 11:14:10 Giovanni Ashley ECG PRE/POST OP 2020-03-23 10:47:09 Giovanni Ashley COVID-19 QUALITATIVE PCR 2020-03-23 09:23:00 Oscar Ashley HC COMPLETE BLD COUNT 2020-03-23 09:23:00 Fred Tolentino Judaism W/AUTO DIFF TYPE AND SCREEN 2020-03-23 09:23:00 Fred Tolentino PARTIAL THROMBOPLASTIN 2020-03-23 09:23:00 Fred Tolentinoston Judaism TIME (PTT) PROTHROMBIN TIME WITH INR 2020-03-23 09:23:00 Fred Tolentino Plan of Care Planned Activity Planned Date Details Comments Source Future Scheduled 2021-02-06 INFLUENZA VACCINE [place] [facility] Test 00:00:00 [code = INFLUENZA VACCINE] Future Scheduled 2006-02-15 BREAST CANCER Rison [facility] Test 00:00:00 SCREENING [code = BREAST CANCER SCREENING] Future Scheduled 2006-02-15 COLONOSCOPY SCREENING [place] [facility] Test 00:00:00 [code = COLONOSCOPY SCREENING] Future Scheduled 2006-02-15 SHINGLES VACCINES [place] [facility] Test 00:00:00 (#1) [code = SHINGLES VACCINES (#1)] Future Scheduled 1977-02-15 Screening for [facility] thodist Test 00:00:00 malignant neoplasm of cervix (procedure) [code = 985901777] Future Scheduled 1974-02-15 Hepatitis C screening [place] [facility] Test 00:00:00 (procedure) [code = 059809856] Future Scheduled 1968 COVID-19 VACCINE (1) Oscar ston Judaism Test 00:00:00 [code = COVID-19 VACCINE (1)] Future Scheduled 1966-02-15 DIABETES: RETINAL EYE [place] [facility] Test 00:00:00 EXAM [code = DIABETES: RETINAL EYE EXAM] Future Scheduled 1966-02-15 DIABETIC FOOT EXAM [place] [facility] Test 00:00:00 [code = DIABETIC FOOT EXAM] Encounters Start End Encounter Admission Attending Care Care Encounter Source Date/Time Date/Time Type Type Clinicians Facility Department ID 2020-10-14 2020-10-14 Surgery [facility] [id number] 08:34:00 09:10:00 [place] [id number] Ke[place] 4.2.7.2.686 Surgical [id number] [place] 020 2020-10-122020-10-12 Break Up Worker Jyoti, [facility] [id number] 11:40:06 11:55:06 Visit Lab Main Greg [id number] [place] 4.2.7.2.686 [facility] [id number] [address] 2020-10-12 2020-10-12 Laboratory Only, [facility] [id number] 11:34:36 11:49:36 Only Test Greg [id number] Ke[place] 4.2.7.2.686 [place] [id number] [facility] 2020-10-12 2020-10-12 Orders Doctor ROSELIA [id number] 00:00:00 00:00:00 Only UnassignedCINDY 350.1.13.10 [place] [facility] 4.2.7.2.686 [id number] 2020-05-13 2020-05-14 Outpatient SUSAN LEAHY [facility] [id number] Rison 00:00:00 00:00:00 361 Method i 2020-05-11 2020-05-11 Outpatient [facility] [id number] Rison 00:00:00 00:00:00 IMRAN 611 Method i 2020-04-01 2020-04-01 [facility] [id number] 06:36:00 10:10:00 Encounter Naveen Garza [id number] Collins Allison 4.2.7.2.686 Surgical [id number] [place] 071 2020-04-01 2020-04-01 Anesthesia Demetrio Christensen [facility] [id number] 08:01:00 08:33:00 [facility] 350.1.13.10 [place] 4.2.7.2.686 Surgical [id number] [place] 020 2020-03-25 2020-03-25 Outpatient [facility] 021 [id number] Rison 00:00:00 00:00:00 IMRAN [address] 2020-03-23 2020-03-23 Outpatient [facility] [id number] Rison 00:00:00 00:00:00 FRED [address] 2020-03-23 2020-03-23 Outpatient MODESTA [facility] [id number] Rison 00:00:00 00:00:00 Lydia BAUTISTA3 Method i BO olivarez Results Test Test Test Results Result Source Description Time Comments Comments Peripheral Bo Ashley [place] Block 05 05/13/2020 8:54 Me thodist 08:50:13 AMPeripheral Block Date/Time: 05/13/2020 8:34 AMPerformed by: Bo Ashley MDAuthorized by: Bo Ashley MD Start Time: 05/13/2020 8:20 AMEnd Time: 05/13/2020 8:45 AMReason for Block: at surgeon's request Staff: Anesthesiologist: Bo Ashley MD Resident/TRIM CARPENTER/AA: James Toure CRNA Performed by: Resident/TRIM CARPENTER/AAPreprocedur e: patient identified, IV checked, site and side [...] and patient comfortableNotes: 20 ML OF 0.5% Ropivacaine and 5 ml of 2% lidocaine ISC injection around the brachial nerve bundle identified with an ultrasound and the nerve stimulator. Musculocutaneous nerve block with 5 ml of 2% lidocaine and 5 ml of 0.5% ropivacaine.Medications AdministeredRopivacaine 0.5 % PF (mL), 20 mL SARS-CoV-2 (COVID-19) RNA [Presence] in Respiratory sp ecimen by 2020-05-12 01:15:19 JUANY with probe detection Test Item Value Reference Range Interpretation Comme nts SARS-CoV-2 (COVID-19) RNA [Presence] in Respiratory Not detected No t-Detected specimen by JUANY with probe detection (test code = 41161-0) ECG Pre/Post [id number] 15:43:26 Test Item Value Reference Range Interpretation Comments Ventricular rate (test 70 code = 253) Atrial rate (test code 70 = 255) MN interval (test code 158 = 266) QRSD [...] of 23-MAR-2020 10:47,-No significant change was found- Rison MethodistPeripheral [id number] 09:08:41Bo Ashley MD 03/25/2020 9:13 AMPeripheral BlockDate/Time: 03/25/2020 7:36 AMPerformed by: Bo Ashley MDAuthorized by: Bo Ashley MD Patient Location: Pre-opStart Time: 03/25/2020 7:40 AMEnd Time: 03/25/2020 7:48 AMReason for Block: primary anesthetic Staff: Anesthesiologist: Bo Ashley MD Resident/TRIM CARPENTER/AA: Hernandez, Brook,TRIM CARPENTER Performed by: AnesthesiologistPreprocedure: patient identified, IV checked, [...] AdministeredRopivacaine 0.5 % PF (mL), 15 mLHouston TkvtldgblFSZR-AyW-5 (COVID-19) RNA [Presence] in Respiratory specimen by JUANY with probe [id number] 18:03:16 Test Item Value Reference Range Interpretation Comments SARS-CoV-2 (COVID-19) RNA Not detected Not-Detected [Presence] in Respiratory specimen by JUANY with probe detection (test code = 38014-2) XR Chest 2 [id number] 11:36:18Hm Interface, Radiology Results Incoming - 03/23/2020 11:39 AM CDT EXAMINATION: XR CHEST 2 VWCLINICAL HISTORY: Z01.818 Encounter for other preprocedural examination, Pre OP TestingCOMPARISON: No priorIMPRESSION:Lines: Right IJ dialysis catheter terminates at the right atrium.Lungs and pleura: Left lingular/basilar subsegmental atelectasis. No effusion or pneumothorax. Low lung volumes and mild vascular crowding.Heart and mediastinum: Mildly prominent appearance of cardiomediastinal silhouette. Bones: No suspicious osseous lesions. Osseous degenerative changes.[facility]-[id number] Rison Judaism
--- NOTE | 2020-12-27 03:49 | ER ---
Nurse's Notes [facility] Name: Meseret Gallego Age: 65 yrs Sex: Female : 1955 Arrival Date: 12/27/2020 Time: 01:38 Bed 17 Private MD: Diagnosis: Skin Avulsion, Left Index Finger Presentation: 12/27 01:55 Chief complaint: Patient states: was cutting some tape to tie her dialysis catheter em together, cut the tip of LEFT index finger, bleeding noted, wrapped with 4x4 and coban. Coronavirus screen: Client denies travel out of the [place] in the last 14 days. Ebola Screen: Patient negative for fever greater than or equal to 101.5 degrees Fahrenheit, and additional compatible Ebola Virus Disease symptoms Patient denies exposure to infectious person. Patient denies travel to an Ebola-affected area in the 21 days before illness onset. No symptoms or risks identified at this time. Initial Sepsis Screen: Does the patient meet any 2 criteria? No. Patient's initial sepsis screen is negative. Does the patient have a suspected source of infection? No. Patient's initial sepsis screen is negative. Risk Assessment: Do you want to hurt yourself or someone else? Patient reports no desire to harm self or others. Onset of symptoms was December 27, 2020. 01:55 Method Of Arrival: Wheelchair em 01:55 Acuity: CHRISTOPHER 4 em Historical: - Allergies: 01:58 Codeine; em 01:58 Phenergan; em 01:58 Tape; em - PMHx: 01:58 Diabetes - IDDM; Dialysis; Hypertension; Hypothyroidism; em - PSHx: 01:58 ; neck fusion; partial thyroid; em - Immunization history:: Adult Immunizations up to date. - Social history:: Smoking status: Patient denies any tobacco usage or history of. Screenin:58 Abuse screen: Denies threats or abuse. Nutritional screening: No deficits noted. em Tuberculosis screening: No symptoms or risk factors identified. Fall Risk None identified. Assessment: 01:59 General: Appears in no apparent distress. comfortable, Behavior is calm, cooperative, em appropriate for age. Pain: Complains of pain in left index finger Pain currently is 6 out of 10 on a pain scale. Neuro: Level of Consciousness is awake, alert, obeys commands, Oriented to person, place, time, situation. Cardiovascular: Capillary refill < 3 seconds Patient's skin is warm and dry. Respiratory: Airway is patent Respiratory effort is even, unlabored, Respiratory pattern is regular, symmetrical. Derm: Skin is intact, is fragile, is thin, Skin is pink, warm \T\ dry. Musculoskeletal: Capillary refill < 3 seconds, Range of motion: intact in all extremities. Injury Description: Avulsion sustained to left index finger. Vital Signs: 01:55 BP 136 / 77; Pulse 82; Resp 16; Temp 97.6; Pulse Ox 99% on R/A; Weight 132.9 kg; Height em 5 ft. 6 in. (167.64 cm); Pain 6/10; 01:55 Body Mass Index 47.29 (132.90 kg, 167.64 cm) em ED Course: 01:38 Patient arrived in ED. am4 01:55 Ventura Garcia MD is Attending Physician. [facility] 01:57 Triage completed. em 01:58 Arm band placed on. em 01:58 Patient has correct armband on for positive identification. Bed in low position. Call em light in reach. 01:58 Patient did not have IV access during this emergency room visit. em 02:02 Yosef Connors, PERRI is Primary Nurse. em 03:53 No provider procedures requiring assistance completed. em Administered Medications: No medications were administered Outcome: 03:48 Discharge ordered by . [facility] 03:53 Discharged to home ambulatory. em 03:53 Condition: good 03:53 Discharge instructions given to patient, Instructed on discharge instructions, follow up and referral plans. wound care, Demonstrated understanding of instructions, follow-up care, medications, wound care. 03:53 Patient left the ED. em Signatures: Yosef Connors, PERRI RN em Ventura Garcia MD MD 7 Steff Walls am4 Corrections: (The following items were deleted from the chart) 02:02 01:55 Chief complaint: Patient states: was cutting some tape to tie her dialysis em catheter together, cut the tip of index finger, bleeding noted, wrapped with 4x4 and coban em
--- NOTE | 2020-12-27 03:49 | EDPHYS ---
Physician Documentation [facility] Name: Meseret Gallego Age: 65 yrs Sex: Female : 1955 Arrival Date: 12/27/2020 Time: 01:38 Bed 17 Private MD: ANT Physician Ventura Garcia HPI: 12/27 03:32 This 65 yrs old Female presents to ER via Wheelchair with complaints of mh7 Finger Injury. 03:32 The patient or guardian reports injury. The complaints affect the left index finger. mh7 Context: The problem was sustained at home, resulted from a penetrating injury, by sharp metal. Onset: The symptoms/episode began/occurred today. Modifying factors: The symptoms are alleviated by nothing, the symptoms are aggravated by nothing. Associated signs and symptoms: Pertinent negatives: cyanosis distally, decreased sensation distally, fever, nausea, numbness distally, tingling distally, vomiting. Severity of symptoms: At their worst the symptoms were mild, earlier today, in the emergency department the symptoms are unchanged. States that she accidentally cut the tip of left index finger while cleaning a small metal piece on her dialysis catheter.. Historical: - Allergies: 01:58 Codeine; em 01:58 Phenergan; em 01:58 Tape; em - PMHx: 01:58 Diabetes - IDDM; Dialysis; Hypertension; Hypothyroidism; em - PSHx: 01:58 ; neck fusion; partial thyroid; em - Immunization history:: Adult Immunizations up to date. - Social history:: Smoking status: Patient denies any tobacco usage or history of. ROS: 03:32 Constitutional: Negative for fever, chills, and weight loss, Eyes: Negative for injury, mh7 pain, redness, and discharge, ENT: Negative for injury, pain, and discharge, Neck: Negative for injury, pain, and swelling, Cardiovascular: Negative for chest pain, palpitations, and edema, Respiratory: Negative for shortness of breath, cough, wheezing, and pleuritic chest pain, Abdomen/GI: Negative for abdominal pain, nausea, vomiting, diarrhea, and constipation, Back: Negative for injury and pain, : Negative for injury, bleeding, discharge, and swelling, Neuro: Negative for headache, weakness, numbness, tingling, and seizure, Psych: Negative for depression, anxiety, suicide ideation, homicidal ideation, and hallucinations, Allergy/Immunology: Negative for hives, rash, and allergies, Endocrine: Negative for neck swelling, polydipsia, polyuria, polyphagia, and marked weight changes, Hematologic/Lymphatic: Negative for swollen nodes, abnormal bleeding, and unusual bruising. Exam: 03:32 Constitutional: This is a well developed, well nourished patient who is awake, alert, mh7 and in no acute distress. Head/Face: Normocephalic, atraumatic. Cardiovascular: Regular rate and rhythm with a normal S1 and S2. No gallops, murmurs, or rubs. Normal PMI, no JVD. No pulse deficits. Respiratory: Lungs have equal breath sounds bilaterally, clear to auscultation and percussion. No rales, rhonchi or wheezes noted. No increased work of breathing, no retractions or nasal flaring. Abdomen/GI: Soft, non-tender, with normal bowel sounds. No distension or tympany. No guarding or rebound. No evidence of tenderness throughout. 03:32 Neuro: Awake and alert, GCS 15, oriented to person, place, time, and situation. Cranial nerves II-XII grossly intact. Motor strength 5/5 in all extremities. Sensory grossly intact. Cerebellar exam normal. Normal gait. Psych: Awake, alert, with orientation to person, place and time. Behavior, mood, and affect are within normal limits. 03:32 Musculoskeletal/extremity: Extremities: noted in the left index finger tip: small skin avulsion, active bleeding, ROM: intact in all extremities, Circulation is intact in all extremities. Sensation intact. Compartment Syndrome exam of affected extremity: is normal. no pain, no numbness, no tingling, no sensation deficit, no palor, no weak pulses, Joints: All joints appear normal with full range of motion. 03:32 Skin: injury, avulsion(s), a very small of the left index finger tip , superficial, bleeding. Vital Signs: 01:55 BP 136 / 77; Pulse 82; Resp 16; Temp 97.6; Pulse Ox 99% on R/A; Weight 132.9 kg; Height em 5 ft. 6 in. (167.64 cm); Pain 6/10; 01:55 Body Mass Index 47.29 (132.90 kg, 167.64 cm) em Procedures: 03:32 Performed Surgicel application for skin avulsion. Surgicel applied to left index finger mh7 tip after cleaning with saline. Vaseline gauze applied and finger dressing applied. No active bleeding after application, neurovascularly intact, patient tolerated well.. MDM: 03:46 Differential diagnosis: contusion, abrasion, skin avulsion. Differential diagnosis:. 7 Data reviewed: vital signs, nurses notes. Counseling: I had a detailed discussion with the patient and/or guardian regarding: the historical points, exam findings, and any diagnostic results supporting the discharge/admit diagnosis, the need for outpatient follow up, to return to the emergency department if symptoms worsen or persist or if there are any questions or concerns that arise at home. Response to treatment: the patient's symptoms have resolved after treatment, the patient's blood pressure is in an acceptable range, mental status has returned to baseline, the patient no longer shows bradycardia, the patient is not short of breath, the patient is not tachycardic, the patient's pain is gone, the patient's temperature has normalized. 03:48 Patient medically screened. [facility] Administered Medications: No medications were administered Disposition: 12/27/20 03:48 Discharged to Home. Impression: Skin Avulsion, Left Index Finger. - Condition is Stable. - Discharge Instructions: Deep Skin Avulsion. - Medication Reconciliation Form, Thank You Letter, Antibiotic Education, Prescription Opioid Use form. - Follow up: Private Physician; When: 1 - 2 days; Reason: Worsening of condition, Recheck today's complaints, Continuance of care, Re-evaluation by your physician. - Problem is new. - Symptoms have improved. Signatures: Yosef Connors RN RN em Ventura Garcia MD MD 7 Corrections: (The following items were deleted from the chart) 03:53 03:48 12/27/2020 03:48 Discharged to Home. Impression: Skin Avulsion, Left Index em Finger. Condition is Stable. Forms are Medication Reconciliation Form, Thank You Letter, Antibiotic Education, Prescription Opioid Use. Follow up: Private Physician; When: 1 - 2 days; Reason: Worsening of condition, Recheck today's complaints, Continuance of care, Re-evaluation by your physician. Problem is new. Symptoms have improved. [facility]
[2020-12-27 03:59] VITALS: BP 136/77; TEMP 97.6; O2SAT 99
== END 2020-12-27 03:53 | disposition home or self-care (01) ==
LOC: ER 01:32
DX: S61.211A Laceration without foreign body of left index finger without damage to nail, initial encounter (principal); W26.8XXA Contact with other sharp object(s), not elsewhere classified, initial encounter; I12.0 Hypertensive chronic kidney disease with stage 5 chronic kidney disease or end stage renal disease; E11.22 Type 2 diabetes mellitus with diabetic chronic kidney disease; N18.6 End stage renal disease; Z99.2 Dependence on renal dialysis; E03.9 Hypothyroidism, unspecified
CPT/HCPCS: 99281

== ENCOUNTER 2021-10-14 18:53 | Emergency (ER) | payer OTHER ==
--- OUTSIDE RECORDS SUMMARY | 2021-10-14 18:57 | XMS REPORT | Continuity of Care Document ---
:1955 Author Organization [facility] t Address [address] Castaneda [address] [place] [id number] Care Team Providers Name Role Phone [id number] Attending Clinician Unavailable COLLINS MORAES Attending Clinician Unavailable Collins Moraes MD Attending Clinician Pob, Lab Main Attending Clinician Unavailable Only, Test Attending Clinician Unavailable Doctor Unassigned, Name Attending Clinician Unavailable CINDY Attending Clinician Unavailable MD AMY T. Attending Clinician Unavailable AMY Attending Clinician Unavailable Fermin BO Attending Clinician Sly BURROUGHS Attending Clinician RAUL Attending Clinician Unavailable [id number] Admitting Clinician Unavailable COLLINS MORAES Admitting Clinician Unavailable CINDY Admitting Clinician Unavailable MD AMY T. Admitting Clinician Unavailable Collins Moraes MD Admitting Clinician AMY Admitting Clinician Unavailable Payers Payer Name Policy Type Policy Number Effective Date Expiration Date Juan DUKE LEILANI [id number] TANESHA/FRANKI RAHMAN [id number] 2020 ADV CHOICE PPO 00:00:00 MEDICARE PART A [id number] 2020 \T\ B 00:00:00 Problems Condition Condition Condition Status Onset Resolution Last Treating Co mments Source Name Details Category Date Date Treatment Clinician Date Obesity Obesity Disease Active Univers (BMI (BMI 4-08 ity of 30-39.9) 30-39.9) 00:00: [place] 00 Medical Branch Allergies, Adverse Reactions, Alerts Allergy Allergy Status Severity Reaction(s) Onset Inactive Treating Comm ents Source Name Type Date Date Clinician CODEINE DRUG Active Hallucinates Uni vers INGREDI 03-30 ity of 00:00: [place] 00 Medical Branch Codeine Propensi Active Hallucinatio U nivers ty to ns 03-30 ity of adverse 00:00: [place] reaction 00 Medical s Branch NO KNOWN Drug Active Univers ALLERGIE Class ity of S [facility] Social History Social Habit Start Date Stop Date Quantity Comments Source Exposure to Not sure [facility] SARS-CoV-2 (event) Medica l Branch Tobacco use and 2020-10-13 2020-10-13 Never used [facility] exposure 00:00:00 00:00:00 [facility] Sex [birth year] [facility] 00:00:00 00:00:00 [facility] Smoking Status Start Date Stop Date Source Unknown if ever smoked [facility] Never smoker [facility] Medications Ordered Filled Start Stop Current Ordering Indication Dosage Frequency Signature Comments Components Source Medication Medication Date Date Medication? Clinician (SIG) Name Name tetracaine Yes PRN, Univers (PONTOCAINE 08 Starting ity of ) 0.5 % 17:31: [place] ophthalmic 00 [place] 1231, Medic al drops Until Branch Discontinu ed, Routine, Intra-op water for Yes PRN, Univers irrigation 4-08 Starting ity o f irrigation 17:29: [place]14/[place] solution 00 at 1229, Medical Until [place] Discontinu ed, Routine, Intra-op NaCl 0.9% Yes PRN, Univers (NS) 4-08 Starting ity of injection 17:28: [place] 00 [place] 1228, Medical Until Branch Discontinu ed, Routine, Intra-op neomycin-po Yes PRN, Univer s lymyxin-dex 4-08 Starting ity of amethasone 17:28: [place] 10/14/20 [place] (MAXITROL) 00 at 1228, Medic al 3.5 Until Branch mg/g-10,000 Discontinu unit/g-0.1 ed, % Routine, ophthalmic Intra-op ointment gentamicin Yes PRN, Univers injection -08 Starting ity of 17:28: [place]le 10/14/20 [place] 00 at 1228, Medical Until Branch Discontinu ed, VIOLETTA, Intra-op eye block Yes PRN, Univers syringe 11 08 Starting ity o f mL 17:27: [place]le 10/14/20 [place] 00 at 1227, Medical Until Branch Discontinu ed, Intra-op EPINEPHrine Yes PRN, Univer s (PF) 4-08 Starting ity of 1:1,000 (1 17:26: [place] 10/14/20 [place] mg/mL) 00 at 1226, Medical (ADRENALIN Until Branch (PF)) Discontinu injection ed, Routine, Intra-op DUOVISC Yes PRN, Univers (DUOVISC 10-14 Starting ity of VISCO 17:26: [place]rystle 10/14/20 [place] ELASTIC) 3 00 at 1226, Medic al %-4 %(0.5 Until Branch mL) 1 % Discontinu (0.55 mL) ed, intraocular Routine, injection Intra-op dexamethaso Yes PRN, Univer s ne -08 Starting ity of (DECADRON 17:26: [place]/14/[place] PHOSPHATE) 00 at 1226, Medic al injection Until Branch Discontinu ed, Routine, Intra-op ceFAZolin Yes PRN, Univers (ANCEF) 4-08 Starting ity of injection 17:25: [place] 10/14/20 [place] 00 at 1225, Medical Until Branch Discontinu ed, VIOLETTA, Intra-op balanced Yes PRN, Univers salt soln 08 Starting ity of no.2 irrig. 17:25: [place]le 10/14/20 [place] (BSS) 00 at 1225, Medical ophthalmic Until Branch solution Discontinu ed, Routine, Intra-op insulin Yes 30U inject 30 Unive rs lispro 4-08 Units ity of (HUMALOG 14:34: under the [place] DEST[place] 02 skin 3 Medical KWIKPEN (three) Branch U-100) 100 times unit/mL daily. inph Insulin Yes 45U inject 45 Unive rs Glargine 4-08 Units ity of (LANTUS 14:34: under the [place] SOLOSTAR 02 skin 2 Medical U-100 (two) Branch INSULIN) times 100 unit/mL daily. (3 mL) injection amLODIPine Yes 10mg Take 10 mg U nivers 10 mg 4-08 by mouth ity of tablet 14:34: daily. [place] [facility] buPROPion Yes 150mg Take 150 Uni vers SR 150 mg 4-08 mg by ity of SR tablet 14:34: mouth [place] daily. Medical Branch furosemide Yes 160mg Take 160 Un hellen 80 mg 4-08 mg by ity of tablet 14:34: mouth [place] 02 daily. Medical Branch lisinopriL Yes 5mg Take 5 mg Un hellen 5 mg tablet 4-08 by mouth ity of 14:34: daily. [place] [facility] metoprolol Yes 50mg Take 50 mg U nivers succinate 4-08 by mouth 2 ity of XL 50 mg 24 14:34: (two) [place] hr tablet 02 times Medical daily. Branch pantoprazol Yes 40mg Take 40 mg Univers e 40 mg EC 4-08 by mouth ity o f tablet 14:34: daily. [place] [facility] Levothyroxi Yes 150ug Take 150 U nivers ne 100 mcg 4-08 mcg by ity of capsule 14:34: mouth [place] 02 daily. Medical Branch aspirin 325 Yes 325mg Take 325 U nivers mg tablet 4-08 mg by ity of 14:34: mouth daily. Medical Branch Cholecalcif Yes Take by Un hellen daryl, 4-08 mouth. ity of Vitamin D3, 14:34: [place] (VITAMIN [address] [place] [address] D3) 25 mcg Branch (1,000 unit) capsule folic Yes Take by Univers acid/multiv 4-08 mouth ity of it-min/lute 14:34: daily. [place] in (CENTRUM 02 Medical SILVER Branch ORAL) mydriatic No .5mL 0.5 mL, Univ ers #5 10-14 04-08 Right Eye, ity of ophthalmic 12:45: 12:48 ONCE, 1 [place] solution 00 :00 dose, Krystle Medica l 0.5 mL 10/14/20 at Branch syringe 0745, Routine, DSU Pre-op lactated 2020-0 202- No 1000mL at 42 Unive rs ringers IV 4-08 04-08 mL/hr, ity of infusion 12:45: 13:20 1,000 mL, [place] 1,000 mL 00 :00 IV Medical Infusion, Branch ONCE, 1 dose, Krystle 10/14/20 at 0745, Routine, DSU Pre-op insulin 2019-0 Yes 30U inject 30 Unive rs lispro 9-24 Units ity of (HUMALOG 16:37: under the [facility] DESTIN 58 skin 3 Medical KWIKPEN (three) Branch U-100) 100 times unit/mL daily. inph Insulin 2019-0 Yes 45U inject 45 Unive rs Glargine 9-24 Units ity of (LANTUS 16:37: under the [place] SOLOSTAR 58 skin 2 Medical U-100 (two) Branch INSULIN) times 100 unit/mL daily. (3 mL) injection amLODIPine 2019-0 Yes 10mg Take 10 mg U nivers 10 mg 9-24 by mouth ity of tablet 16:37: daily. [place] [address] Medical Branch buPROPion 2020-0 Yes 150mg Take 150 Uni vers SR 150 mg 9-24 mg by ity of SR tablet 16:37: mouth [place] 58 daily. Medical Branch furosemide 2020-0 Yes 160mg Take 160 Un hellen 80 mg 9-24 mg by ity of tablet 16:37: mouth [place] 58 daily. Medical Branch lisinopriL 2020-0 Yes 5mg Take 5 mg Un hellen 10 mg 9-24 by mouth ity of tablet 16:37: daily. [place] [address] Medical Branch metoprolol 2020-0 Yes 50mg Take 50 mg U nivers succinate 9-24 by mouth 2 ity of XL 50 mg 24 16:37: (two) [place] hr tablet 58 times Medical daily. Branch pantoprazol 2020-0 Yes 40mg Take 40 mg Univers e 40 mg EC 9-24 by mouth ity o f tablet 16:37: daily. [place] [address] Medical Branch Levothyroxi 2020-0 Yes 150ug Take 150 U nivers ne 100 mcg 9-24 mcg by ity of capsule 16:37: mouth [place] 58 daily. Medical Branch aspirin 325 2020-0 Yes 325mg Take 325 U nivers mg tablet 9-24 mg by ity of 16:37: mouth [place] 58 daily. Medical Branch Cholecalcif 2020-0 Yes Take by Un hellen daryl, 9-24 mouth. ity of Vitamin D3, 16:37: [place] (VITAMIN [address] [place] [address] D3) 25 mcg Branch (1,000 unit) capsule folic 2020-0 Yes Take by Univers acid/multiv 9-24 mouth ity of it-min/lute 16:37: daily. [facility] (CENTRUM 58 Medical SILVER Branch ORAL) insulin 2020-0 Yes 30U inject 30 Unive rs lispro 9-24 Units ity of (HUMALOG 16:37: under the [facility] s DESTIN 58 skin 3 Medical KWIKPEN (three) Branch U-100) 100 times unit/mL daily. inph Insulin 2020-0 Yes 45U inject 45 Unive rs Glargine 9-24 Units ity of (LANTUS 16:37: under the [place] SOLOSTAR 58 skin 2 Medical U-100 (two) Branch INSULIN) times 100 unit/mL daily. (3 mL) injection amLODIPine 2020-0 Yes 10mg Take 10 mg U nivers 10 mg 9-24 by mouth ity of tablet 16:37: daily. [place] [address] Medical Branch buPROPion 2020-0 Yes 150mg Take 150 Uni vers SR 150 mg 9-24 mg by ity of SR tablet 16:37: mouth [place] 58 daily. Medical Branch furosemide 2020-0 Yes 160mg Take 160 Un hellen 80 mg 9-24 mg by ity of tablet 16:37: mouth [place] 58 daily. Medical Branch lisinopriL 2020-0 Yes 5mg Take 5 mg Un hellen 10 mg 9-24 by mouth ity of tablet 16:37: daily. [place] [address] Medical Branch metoprolol 2020-0 Yes 50mg Take 50 mg U nivers succinate 9-24 by mouth 2 ity of XL 50 mg 24 16:37: (two) [place] hr tablet 58 times Medical daily. Branch pantoprazol 2020-0 Yes 40mg Take 40 mg Univers e 40 mg EC 9-24 by mouth ity o f tablet 16:37: daily. [place] [address] Medical Branch Levothyroxi 2020-0 Yes 150ug Take 150 U nivers ne 100 mcg 9-24 mcg by ity of capsule 16:37: mouth [place] 58 daily. Medical Branch aspirin 325 2020-0 Yes 325mg Take 325 U nivers mg tablet 9-24 mg by ity of 16:37: mouth [place] 58 daily. Medical Branch Cholecalcif 2020-0 Yes Take by Un hellen daryl, 9-24 mouth. ity of Vitamin D3, 16:37: [place] (VITAMIN [address] [place] [address] D3) 25 mcg Branch (1,000 unit) capsule folic 2020-0 Yes Take by Univers acid/multiv 9-24 mouth ity of it-min/lute 16:37: daily. [facility] in (CENTRUM 58 Medical SILVER Branch ORAL) insulin 2020-0 Yes 30U inject 30 Unive rs lispro 9-24 Units ity of (HUMALOG 16:37: under the [facility] s DESTIN 58 skin 3 Medical KWIKPEN (three) Branch U-100) 100 times unit/mL daily. inph Insulin 2020-0 Yes 45U inject 45 Unive rs Glargine 9-24 Units ity of (LANTUS 16:37: under the [place] SOLOSTAR 58 skin 2 Medical U-100 (two) Branch INSULIN) times 100 unit/mL daily. (3 mL) injection amLODIPine 2020-0 Yes 10mg Take 10 mg U nivers 10 mg 9-24 by mouth ity of tablet 16:37: daily. [place] [address] Medical Branch buPROPion 2020-0 Yes 150mg Take 150 Uni vers SR 150 mg 9-24 mg by ity of SR tablet 16:37: mouth [place] daily. Medical Branch furosemide 2020-0 Yes 160mg Take 160 Un hellen 80 mg 9-24 mg by ity of tablet 16:37: mouth [place] 58 daily. Medical Branch lisinopriL 2020-0 Yes 5mg Take 5 mg Un hellen 10 mg 9-24 by mouth ity of tablet 16:37: daily. [place] [address] Medical Branch metoprolol 2020-0 Yes 50mg Take 50 mg U nivers succinate 9-24 by mouth 2 ity of XL 50 mg 24 16:37: (two) [place] hr tablet 58 times Medical daily. Branch pantoprazol 2020-0 Yes 40mg Take 40 mg Univers e 40 mg EC 9-24 by mouth ity o f tablet 16:37: daily. [place] [address] Medical Branch Levothyroxi 2020-0 Yes 150ug Take 150 U nivers ne 100 mcg 9-24 mcg by ity of capsule 16:37: mouth [place] 58 daily. Medical Branch aspirin 325 2020-0 Yes 325mg Take 325 U nivers mg tablet 9-24 mg by ity of 16:37: mouth [place] 58 daily. Medical Branch Cholecalcif 2020-0 Yes Take by Un hellen daryl, 9-24 mouth. ity of Vitamin D3, 16:37: [place] (VITAMIN Medical D3) 25 mcg Branch (1,000 unit) capsule folic 2020-0 Yes Take by Univers acid/multiv 9-24 mouth ity of it-min/lute 16:37: daily. [facility] in (CENTRUM 58 Medical SILVER Branch ORAL) insulin 2020-0 Yes 30U inject 30 Unive rs lispro 9-24 Units ity of (HUMALOG 16:37: under the [facility] s DESTIN 58 skin 3 Medical KWIKPEN (three) Branch U-100) 100 times unit/mL daily. inph Insulin 2020-0 Yes 45U inject 45 Unive rs Glargine 9-24 Units ity of (LANTUS 16:37: under the [place] SOLOSTAR 58 skin 2 Medical U-100 (two) Branch INSULIN) times 100 unit/mL daily. (3 mL) injection amLODIPine 2020-0 Yes 10mg Take 10 mg U nivers 10 mg 9-24 by mouth ity of tablet 16:37: daily. [place] [address] Medical Branch buPROPion 2020-0 Yes 150mg Take 150 Uni vers SR 150 mg 9-24 mg by ity of SR tablet 16:37: mouth [place] 58 daily. Medical Branch furosemide 2020-0 Yes 160mg Take 160 Un hellen 80 mg 9-24 mg by ity of tablet 16:37: mouth [place] 58 daily. Medical Branch lisinopriL 2020-0 Yes 5mg Take 5 mg Un hellen 10 mg 9-24 by mouth ity of tablet 16:37: daily. [place] [address] Medical Branch metoprolol 2020-0 Yes 50mg Take 50 mg U nivers succinate 9-24 by mouth 2 ity of XL 50 mg 24 16:37: (two) [place] hr tablet 58 times Medical daily. Branch pantoprazol 2020-0 Yes 40mg Take 40 mg Univers e 40 mg EC 9-24 by mouth ity o f tablet 16:37: daily. [place] [address] Medical Branch Levothyroxi 2020-0 Yes 150ug Take 150 U nivers ne 100 mcg 9-24 mcg by ity of capsule 16:37: mouth [place] 58 daily. Medical Branch aspirin 325 2020-0 Yes 325mg Take 325 U nivers mg tablet 9-24 mg by ity of 16:37: mouth [place] 58 daily. Medical Branch Cholecalcif 2020-0 Yes Take by Un hellen daryl, 9-24 mouth. ity of Vitamin D3, 16:37: [place] (VITAMIN 58 [facility] D3) 25 mcg Branch (1,000 unit) capsule folic 2020-0 Yes Take by Univers acid/multiv 9-24 mouth ity of it-min/lute 16:37: daily. [place] in (CENTRUM 58 Medical SILVER Branch ORAL) insulin 2020-0 Yes 30U inject 30 Unive rs lispro 9-24 Units ity of (HUMALOG 13:50: under the [facility] DESTIN 18 skin 3 Medical KWIKPEN (three) Branch U-100) 100 times unit/mL daily. inph Insulin 2020-0 Yes 45U inject 45 Unive rs Glargine 9-24 Units ity of (LANTUS 13:50: under the [place] SOLOSTAR 18 skin 2 Medical U-100 (two) Branch INSULIN) times 100 unit/mL daily. (3 mL) injection amLODIPine 2020-0 Yes 10mg Take 10 mg U nivers 10 mg 9-24 by mouth ity of tablet 13:50: daily. [place] [address] Medical Branch buPROPion 2020-0 Yes 150mg Take 150 Uni vers SR 150 mg 9-24 mg by ity of SR tablet 13:50: mouth [place] 18 daily. Medical Branch furosemide 2020-0 Yes 160mg Take 160 Un hellen 80 mg 9-24 mg by ity of tablet 13:50: mouth [place] 18 daily. Medical Branch lisinopriL 2020-0 Yes 5mg Take 5 mg Un hellen 10 mg 9-24 by mouth ity of tablet 13:50: daily. [place] [address] Medical Branch metoprolol 2020-0 Yes 50mg Take 50 mg U nivers succinate 9-24 by mouth 2 ity of XL 50 mg 24 13:50: (two) [place] hr tablet 18 times Medical daily. Branch pantoprazol 2020-0 Yes 40mg Take 40 mg Univers e 40 mg EC 9-24 by mouth ity o f tablet 13:50: daily. [place] [address] Medical Branch Levothyroxi 2020-0 Yes 150ug Take 150 U nivers ne 100 mcg 9-24 mcg by ity of capsule 13:50: mouth [place] 18 daily. Medical Branch aspirin 325 2020-0 Yes 325mg Take 325 U nivers mg tablet 9-24 mg by ity of 13:50: mouth [place] 18 daily. Medical Branch Cholecalcif 2020-0 Yes Take by Un hellen daryl, 9-24 mouth. ity of Vitamin D3, 13:50: [place] (VITAMIN [address] [place] [address] D3) 25 mcg Branch (1,000 unit) capsule folic 2020-0 Yes Take by Univers acid/multiv 9-24 mouth ity of it-min/lute 13:50: daily. [place] in (CENTRUM 18 Medical SILVER Branch ORAL) insulin 2020-0 Yes 30U inject 30 Unive rs lispro 9-24 Units ity of (HUMALOG 13:50: under the [facility] DESTIN 18 skin 3 Medical KWIKPEN (three) Branch U-100) 100 times unit/mL daily. inph Insulin 2020-0 Yes 45U inject 45 Unive rs Glargine 9-24 Units ity of (LANTUS 13:50: under the [place] SOLOSTAR 18 skin 2 Medical U-100 (two) Branch INSULIN) times 100 unit/mL daily. (3 mL) injection amLODIPine 2020-0 Yes 10mg Take 10 mg U nivers 10 mg 9-24 by mouth ity of tablet 13:50: daily. [place] [address] Medical Branch buPROPion 2020-0 Yes 150mg Take 150 Uni vers SR 150 mg 9-24 mg by ity of SR tablet 13:50: mouth [place] 18 daily. Medical Branch furosemide 2020-0 Yes 160mg Take 160 Un hellen 80 mg 9-24 mg by ity of tablet 13:50: mouth [place] 18 daily. Medical Branch lisinopriL 2020-0 Yes 5mg Take 5 mg Un hellen 10 mg 9-24 by mouth ity of tablet 13:50: daily. [place] [address] Medical Branch metoprolol 2020-0 Yes 50mg Take 50 mg U nivers succinate 9-24 by mouth 2 ity of XL 50 mg 24 13:50: (two) [place] hr tablet 18 times Medical daily. Branch pantoprazol 2020-0 Yes 40mg Take 40 mg Univers e 40 mg EC 9-24 by mouth ity o f tablet 13:50: daily. [place] [address] Medical Branch Levothyroxi 2020-0 Yes 150ug Take 150 U nivers ne 100 mcg 9-24 mcg by ity of capsule 13:50: mouth [place] 18 daily. Medical Branch aspirin 325 2020-0 Yes 325mg Take 325 U nivers mg tablet 9-24 mg by ity of 13:50: mouth [place] 18 daily. Medical Branch Cholecalcif 2020-0 Yes Take by Un hellen daryl, 04-01 mouth. ity of Vitamin D3, 13:50: [place] (VITAMIN 18 Medical D3) 25 mcg Branch (1,000 unit) capsule folic 2020-0 Yes Take by Univers acid/multiv 04-01 mouth ity of it-min/lute 13:50: daily. [place] in (CENTRUM 18 Medical SILVER Branch ORAL) NaCl 0.9% 2020-0 Yes 1000mL at 75 Unive rs (NS) IV 9-24 mL/hr, IV ity of infusion 13:45: Infusion, [place] 1,000 mL 00 CONTINUOUS Medic al , Starting Branch [place] 04/01/20 at 0845, Until Discontinu ed, Routine, PACU propofoL IV 2020-0 2020- No Intravenou Univers infusion 04-01- s, ONCE ity of 13:04: 13:33 INTRA [place] 00 :17 PROCEDURE, Medical Starting Branch [place] 04/01/20 at 0804, Until [place] 04/01/20 at 0833, Routine, Intra-op propofoL IV 2020-0 2020- No Intravenou Univers infusion 04-01 s, ONCE ity of 13:04: 13:33 INTRA [place] 00 :17 PROCEDURE, Medical Starting Branch [place] 04/01/20 at 0804, Until [place] 04/01/20 at 0833, Routine, Intra-op lidocaine 2020-0 2020- No ONCE INTRA U nivers 1% 04-01 PROCEDURE, ity of (XYLOCAINE) 13:02: 13:33 Starting [place] 100 mg/10 00 :17 Kryslte Medical mL (1 %) 04/01/20 at [facility] h injection 0802, Until [place] 04/01/20 at 0833, Routine, Intra-op remifentani 2020-0 2020- No Intravenou Univers L (ULTIVA) 04-01 s, ONCE ity o f injection 13:02: 13:33 INTRA [place] 00 :17 PROCEDURE, Medical Starting Branch [place] 04/01/20 at 0802, Until [place] 04/01/20 at 0833, Routine, Intra-op lidocaine 2020-0 2020- No ONCE INTRA U nivers 1% 04-01 PROCEDURE, ity of (XYLOCAINE) 13:02: 13:33 Starting [place] 100 mg/10 00 :17 K[place]le Medical mL (1 %) 04/01/20 at [facility] h injection 0802, Until [place] 04/01/20 at 0833, Routine, Intra-op remifentani 2020-0 2020- No Intravenou Univers L (ULTIVA) 04-01 s, ONCE ity o f injection 13:02: 13:33 INTRA [place] 00 :17 PROCEDURE, Medical Starting Branch [facility] 04/01/20 at 0802, Until [place] 04/01/20 at 0833, Routine, Intra-op lactated 2020-0 2020- No IV Univers ringers IV 04-01 Infusion, ity of infusion 13:01: 13:33 CONTINUOUS [place] 00 :17 PRN, Medical Starting Branch [facility] 04/01/20 at 0801, Until [place] 04/01/20 at 0833, Routine, Intra-op lactated 2020-0 2020- No IV Univers ringers IV 04-01 Infusion, ity of infusion 13:01: 13:33 CONTINUOUS [place] 00 :17 PRN, Medical Starting Branch [facility] 04/01/20 at 0801, Until [place] 04/01/20 at 0833, Routine, Intra-op tetracaine 2020-0 Yes PRN, Univers (PONTOCAINE 04-01 Starting ity of ) 0.5 % 12:53: [place]le [place] ophthalmic 04/01/20 at Med ical drops 0753, Branch Until Discontinu ed, Routine, Intra-op water for 2020-0 Yes PRN, Univers irrigation 04-01 Starting ity o f irrigation 12:53: Krystle [place] solution 04/01/20 at Medic al 0753, Branch Until Discontinu ed, Routine, Intra-op NaCl 0.9% 2020-0 Yes PRN, Univers (NS) 04-01 Starting ity of injection 12:52: Krystle [place] 00 04/01/20 at Medical 0752, Branch Until Discontinu ed, Routine, Intra-op neomycin-po 2020-0 Yes PRN, Univer s lymyxin-dex 04-01 Starting ity of amethasone 12:52: Krystle [place] (MAXITROL) 04/01/20 at [facility] ical 3.5 0752, [place] mg/g-10,000 Until unit/g-0.1 Discontinu % ed, ophthalmic Routine, ointment Intra-op gentamicin 2020-0 Yes PRN, Univers injection 04-01 Starting ity of 12:52: Krystle [place] 04/01/20 at [place] [address], [place] Until Discontinu ed, VIOLETTA, Intra-op eye block 2020-0 Yes PRN, Univers syringe 11 04-01 Starting ity o f mL 12:51: Krystle [place] 04/01/20 at [place] [address], [place] Until Discontinu ed, Intra-op EPINEPHrine 2020-0 Yes PRN, Univer s (PF) 04-01 Starting ity of 1:1,000 (1 12:51: Krystle [place] mg/mL) 04/01/20 at [facility] (ADRENALIN 0751, [place] (PF)) Until injection Discontinu ed, Routine, Intra-op DUOVISC 2020-0 Yes PRN, Univers (DUOVISC 04-01 Starting ity of VISCO 12:51: Krystle [place] ELASTIC) 3 04/01/20 at [facility] ica %-4 %(0.5 0751, [place] mL) 1 % Until (0.55 mL) Discontinu intraocular ed, injection Routine, Intra-op dexamethaso 2020-0 Yes PRN, [facility] s ne 04-01 Starting ity of (DECADRON 12:50: Krystle [place] PHOSPHATE) 04/01/20 at [facility] ical injection [facility], [place] Until Discontinu ed, Routine, Intra-op ceFAZolin 2020-0 Yes PRN, Univers (ANCEF) 04-01 Starting ity of injection 12:50: Krystle [place] 04/01/20 at [place] [address], [place] Until Discontinu ed, VIOLETTA, Intra-op balanced 2020-0 Yes PRN, Univers salt soln 04-01 Starting ity of no.2 irrig. 12:49: Krystle [place] (BSS) 04/01/20 at [facility] ophthalmic 0749, [place] solution Until Discontinu ed, Routine, Intra-op lactated 2020-0 2020- No 1000mL at [address] [place] [address] rs ringers IV 04-0124 mL/hr, ity of infusion 12:00: 12:17 1,000 mL, [place] 1,000 mL 00 :00 IV Medical Infusion, Branch ONCE, 1 dose, [place] 04/01/20 at 0700, Routine, DSU Pre-op mydriatic 2019- 2020- No .5mL 0.5 mL, Univ ers #5 04-01 Left Eye, ity of ophthalmic 12:00: 12:16 ONCE, 1 [place] solution 00 :00 dose, Krystle Medica l 0.5 mL 04/01/20 at Branch syringe 0700, Routine Vital Signs Vital Name Observation Time Observation Value Comments Source Systolic blood 2020-10-14 14:10:00 120 mm[Hg] Univer sity of [email or web address] Diastolic blood 2020-10-14 14:10:00 65 mm[Hg] [facility] [place] [email or web address] Heart rate 2020-10-14 14:10:00 81 /min [facility] Body temperature 2020-10-14 14:10:00 36.06 Katharina [facility] Respiratory rate 2020-10-14 14:10:00 13 /min [facility] Oxygen saturation in 2020-10-14 14:10:00 99 /min [facility] blood by [facility] Pulse oximetry [place] Body height 2020-10-01 18:42:00 167.6 cm [facility] Body weight 2020-10-01 18:42:00 108.4 kg [facility] BMI 2020-10-01 18:42:00 38.59 kg/m2 [facility] Systolic blood 2020-10-14 14:10:00 120 mm[Hg] Univer sity of [facility] [[email or web address] Diastolic blood 2020-10-14 14:10:00 65 mm[Hg] [facility] [place] [facility] [[email or web address] Heart rate 2020-10-14 14:10:00 81 /min [facility] Body temperature 2020-10-14 14:10:00 36.06 [facility]arina [facility] 2020-10-14 14:10:00 13 /min Univ [facility] [place] [facility] Oxygen saturation in 2020-10-14 14:10:00 99 /min University of Arterial blood by [facility] Pulse oximetry Branch Body height 2020-10-01 18:42:00 167.6 cm [facility] [place] [facility] Body weight 2020-10-01 18:42:00 108.4 kg [facility] [place] [facility] BMI 2020-10-01 18:42:00 38.59 kg/m2 [facility] [place] [facility] Systolic blood 2020-04-01 13:55:00 113 mm[Hg] [facility] Diastolic blood 2020-04-01 13:55:00 56 mm[Hg] [facility] Heart rate 2020-04-01 13:55:00 63 /min [facility] Body temperature 2020-04-01 13:55:00 36.11 Katharina [facility] Oxygen saturation in 2020-04-01 13:50:00 100 /min University of Arterial blood by [facility] Pulse oximetry Branch Respiratory rate 2020-04-01 13:45:00 18 /min [facility] Body height 2020-03-30 17:15:00 167.6 cm [facility] Body weight 2020-03-30 17:15:00 108.41 kg [facility] BMI 2020-03-30 17:15:00 38.58 kg/m2 [facility] Systolic blood 2020-04-01 13:55:00 113 mm[Hg] [facility] Diastolic blood 2020-04-01 13:55:00 56 mm[Hg] [facility] Heart rate 2020-04-01 13:55:00 63 /min [facility] Body temperature 2020-04-01 13:55:00 36.11 Katharina [facility] Oxygen saturation in 2020-04-01 13:50:00 100 /min [facility] Arterial blood by [facility] Pulse oximetry Branch Respiratory rate 2020-04-01 13:45:00 18 /min [facility] Body height 2020-03-30 17:15:00 167.6 cm [facility] Body weight 2020-03-30 17:15:00 108.41 kg [facility] BMI 2020-03-30 17:15:00 38.58 kg/m2 [facility] Respiratory rate 2020-04-01 13:32:00 18 /min [facility] Respiratory rate 2020-04-01 13:32:00 18 /min [facility] Procedures Procedure Date / Time Performing Source Performed Clinician PHACOEMULSIFICATION OF 2020-10-14 Aleisha [facility] CATARACT WITH INTRAOCULAR 13:33:00 [place] [facility] LENS IMPLANT POCT GLUCOSE (AUTOMATED) 2020-10-14 Aleisha [facility] 12:38:00 [facility] POCT GLUCOSE(AGE >30DAYS) 2020-10-14 An[facility] 12:35:00 Medical Branch ASSIGNMENT OF BENEFITS 2020-10-12 Doctor Unassigned, [facility] 16:32:53 [facility] POCT GLUCOSE(AGE >30DAYS) 2020-04-01 [facility] 12:03:00 Medical Branch ASSIGNMENT OF BENEFITS 2020-03-30 Doctor Unassigned, [facility] 16:01:28 [facility] NOTICE OF BILLING PRACTICES 2020-03-23 Doctor Unassigned, [facility] FOR MEDICARE PATIENTS 20:49:43 [facility] anch [facility] PATIENT FINANCIAL POLICY 2020-03-23 Doctor Unassigned, [facility] 20:49:19 [facility] NO SHOW OR MISSED APPOINTMENT 2020-03-23 Doctor Unassigned, [facility] POLICY ACKNOWLEDGEMENT 20:48:59 [facility] NOTICE OF PRIVACY PRACTICES 2020-03-23 Doctor Unassigned, [facility] 20:48:48 [facility] CONSENT/REFUSAL FOR DIAGNOSIS 2020-03-23 Doctor Unassigned, [facility] AND TREATMENT 20:48:30 [facility] ASSIGNMENT OF BENEFITS 2020-03-23 Doctor Unassigned, [facility] 20:48:19 [facility] PHYSICIAN ORDERS 2020-03-23 Doctor Unassigned, [facility] 05:01:00 [facility] Encounters Start End Encounter Admission Attending Care Care Encounter Source Date/Time Date/Time Type Type Clinicians Facility Department ID 2021-08-04 Outpatient [id number] [facility] REF [id number] [facility] 13:44:15 [id number] 2021-08-04 Outpatient 3 [id number] [facility] REF [id number] [facility] 13:21:20 [id number] 2021-05-08 Outpatient Estevan MORAES NYEBENEZER OPH [id number] Univers 08:53:46 FAUSTO adam [facility] 2021-05-06 Outpatient R ALEISHA NYEBENEZER ECTOR [id number] Univers 18:47:42 FAUSTO adam [facility] 2020-10-14 2020-10-14 Surgery Aleisha [facility] 1.2.840.114 [id number] Univers 08:34:00 09:10:00 Fausto Garza 350.1.13.10 i ty of [place] [id number] [address] 2020-10-14 2020-10-14 Surgery [facility] 1.2.840.114 [id number] 08:34:00 09:10:00 Greg 350.1.13.10 [place] 4.2.7.2.686 Surgical [id number] [place] [address] 2020-10-12 2020-10-12 Slitter Scorer Jyoti, [facility] Lab Main [facility] 1.2.8 40.114 [id number] [facility] 11:40:06 11:55:06 Visit Fausto Moraes 350.1.1 3.10 ity [place] [id number] Ma dical [address] 2020-10-12 2020-10-12 Slitter Scorer Jyoti, [facility] 1.2.840.114 [id number] 11:40:06 11:55:06 Visit Lab Main Greg 350.1.13.10 [place] 4.2.7.2.686 Professio [id number] [address] 2020-10-12 2020-10-12 Laboratory Only, [facility] Test [facility] 1.2.840. 114 [id number] Univers 11:34:36 11:49:36 Only Fausto Moraes [place] 350.1.1 3.10 ity [place] [id number] [facility] 353 Branch 2020-10-12 2020-10-12 Laboratory Only, Juanpablo [facility] 1.2.840.114 [id number] 11:34:36 11:49:36 Only Test Greg 350.1.13.10 [place] 4.2.7.2.686 [place] [id number] 353 2020-10-12 2020-10-12 Outpatient R [facility] [id number] Univers 10:45:00 10:45:00 [id number] ity [facility] 2020-10-12 2020-10-12 Outpatient R ALEIHSA [facility] [id number] Univers 10:45:00 10:45:00 FAUSTO itagus [facility] 2020-10-12 2020-10-12 Orders Doctor VELOZ 1.2.840.114 [id number] Univers 00:00:00 00:00:00 Only Unassigned, CINDY 350.1.13.10 ity of [place] [facility] 4.2.7.2.686 [place] as [id number] [facility] 009 Branch 2020-10-12 2020-10-12 Orders Doctor VELOZ 1.2.840.114 [id number] 00:00:00 00:00:00 Only Unassigned, CINDY 350.1.13.10 [place] [facility] 4.2.7.2.686 [id number] 009 2020-05-13 2020-05-14 Outpatient SUSAN WHITE [facility] [id number] [place] 00:00:00 00:00:[address] 2020-05-11 2020-05-11 Outpatient AMY [facility] [id number] [place] 00:00:00 00:00:00 [address] 2020-04-01 2020-04-01 [facility] 1.2.840.114 [id number] Univers 06:36:00 10:10:00 Encounter Fausto Garza 350.1.13.10 ity [place] [id number] [facility] 071 Branch 2020-04-01 2020-04-01 [facility] 1.2.840.114 [id number] 06:36:00 10:10:00 Carlitos Garza 350.1.13.10 [place] 4.2.7.2.686 Surgical [id number] [place] 07 2020-04-01 2020-04-01 Anesthesia Demetrio Christensen [facility] 1.2.840.11 [id number] Univers 08:01:00 08:33:00 [facility] 350.1.13.10 ity [place] [id number] [facility] 020 [place] 2020-04-01 2020-04-01 Anesthesia Demetrio Christensen [facility] 1.2.840.11 [id number] 08:01:00 08:33:00 [facility] 350.1.13.10 [place] 4.2.7.2.686 Surgical [id number] [place] 020 2020-03-31 2020-03-31 Outpatient R ALEISHA, [facility] [id number] Univers 09:30:00 09:30:00 FAUSTO [id number] [facility] 2020-03-31 2020-03-31 Outpatient R ALEISHA [facility] [id number] Univers 09:30:00 09:30:00 FAUSTO [facility] 2020-03-30 2020-03-30 Outpatient R [facility] [id number] Univers 12:45:00 12:45:[id number] 2020-03-30 2020-03-30 Outpatient R [facility] [id number] Univers 12:45:00 12[facility]45[facility] 2020-03-30 2020-03-30 Laboratory Only, Adc Test [facility] 1.2.840. 114 [id number] Univers 11:17:56 11:32:56 Only Fausto Moraes 350.1.1 3.10 ity [place] [id number] [address] 2020-03-30 2020-03-30 Orders Doctor VELOZ 1.2.840.114 [id number] Univers 00:00:00 00:00:00 Only Unassigned, CINDY 350.1.13.[address] [facility] 4.2.7.2.686 [place] as [id number] [address] 2020-03-25 2020-03-25 Outpatient AMY [facility] 021 [id number] [place] 00:00:00 00:00:00 IMRAN 879 Method i 2020-03-23 2020-03-23 Slitter Scorer Jyoti, Juanpablo Lab Main [facility] 1.2.8 40.114 [id number] [facility] 15:51:10 16:06:10 Visit Fausto Moraes 350.1.1 3.10 ity [facility] 4.2.7.2.686 Jonelle Floresessio [id number] Ma dical [address] 2020-03-23 2020-03-23 Outpatient Estevan MORAES [facility] [id number] [facility] 16:00:00 16:00:00 FAUSTO adam [facility] 2020-03-23 2020-03-23 Outpatient AMY [facility] [id number] [place] 00:00:00 00:00:00 IMRAN [address] i 2020-03-23 2020-03-23 Outpatient WOJCIECHOWS [facility] [id number] [place] 00:00:00 00:00:00 KI, [address] Results Test Description Test Time Test Comments Results Result Comments Source POCT GLUCOSE (AUTOMATED) 2020-10-14 12:45:50 Test Item Value Reference Range Interpretation Comme nts POCT GLU (test code = 3925651260) 255 mg/dL 70-110 H Lab Interpretation (test code = 11583-5) [facility] [id number] 12:35:00 Test Item Value Reference Range Interpretation Comments POCT Glu (age>30days) (test code = 255 mg/dL 70-110 A 3342) Lab Interpretation (test code = Abnormal 97419-7) [facility] RNA [Presence] in Respiratory specimen by JUANY with probe [id number] 01:15:19 Test Item Value Reference Range Interpretation Comments SARS-CoV-2 (COVID-19) RNA Not detected Not-Detected [Presence] in Respiratory specimen by JUANY with probe detection (test code = 34908-6) POCT [id number] 12:03:00 Test Item Value Reference Range Interpretation Comments POCT Glu (age>30days) (test code = 142 mg/dL 70-110 A 3342) Lab Interpretation (test code = Abnormal 48185-7) [facility] (COVID-19) RNA [Presence] in Respiratory specimen by JUANY with probe [id number] 18:03:16 Test Item Value Reference Range Interpretation Comments SARS-CoV-2 (COVID-19) RNA Not detected Not-Detected [Presence] in Respiratory specimen by JUANY with probe detection (test code = 38638-9)
[2021-10-14] MEDS ORDERED: ACETAMINOPHEN 500 MG TAB ONE (20:10)
[2021-10-14] MEDS ORDERED: ONDANSETRON 4 MG (ODT) TAB ONE (20:10)
[2021-10-14 20:15] LABS: Hematocrit 30.1 % (36.0-45.0); Lymphocytes % 7.7 % (15.3-44.8); MPV 7.8 fL (7.6-11.3); RBC Red Blood Cell Count 3.17 M/uL (3.86-4.86)
[2021-10-14 20:26] LABS: Potassium 4.4 mmol/L (3.5-5.1)
--- NOTE | 2021-10-14 20:29 | RAD REPORT ---
EXAM DESCRIPTION: RAD - Chest Single View - 10/14/2021 8:16 pm CLINICAL HISTORY: Fall COMPARISON: Portable 09/03/2020 TECHNIQUE: AP portable chest image was obtained 10/14/2021 8:16 pm . FINDINGS: No pneumothorax or pulmonary contusion findings. Interstitial markings are prominent and s lightly increased from comparison. Central vasculature is also increased. Enlarged cardiac silhouette has not changed. No measurable pleural fluid collection. Left-sided dialysis catheter is in place. N o acute bony abnormality seen. No acute aortic findings suspected. IMPRESSION: No acute traumatic injury to the chest identifiable. Heart, vasculature and lung markings suggest a mild volume overload or failure pattern.
--- NOTE | 2021-10-14 20:30 | RAD REPORT ---
EXAM DESCRIPTION: RAD - Wrist Right 3 View - 10/14/2021 8:16 pm CLINICAL HISTORY: PAINfollowing fall COMPARISON: No comparisons FINDINGS: No fracture is identified. There is no dislocation or periosteal reaction noted. Degenerat hermes changes are present at the trapezium articulation with the scaphoid and first metacarpal. Arteria l calcifications are present. No foreign body or other soft tissue abnormality. IMPRESSION: Negative right wrist examination for fracture or acute finding.
--- NOTE | 2021-10-14 20:31 | RAD REPORT ---
EXAM DESCRIPTION: RAD - Wrist Left 3 View - 10/14/2021 8:16 pm CLINICAL HISTORY: PAINfollowing fall COMPARISON: No comparisons FINDINGS: No fracture is identified. There is no dislocation or periosteal reaction noted. Degenerat hermes changes are present at the trapezium articulation with the scaphoid bone and first metacarpal. Ar terial calcifications are present. Surgical clips are seen in the distal forearm soft tissues. IMPRESSION: Negative left wrist examination for fracture or acute finding.
--- NOTE | 2021-10-14 20:36 | RAD REPORT ---
EXAM DESCRIPTION: CT - CTHCSPWOC - 10/14/2021 8:21 pm CLINICAL HISTORY: Fall;Pain COMPARISON: No comparisons TECHNIQUE: Axial 5 mm thick images of the head were obtained. Axial 2 mm thick images of the cervic al spine were obtained with sagittal and coronal reconstruction images generated and reviewed. All CT scans are performed using dose optimization technique as appropriate and may include automated exposure control or mA/KV adjustment according to patient size. FINDINGS: No intracranial hemorrhage, mass, edema or acute intracranial finding. No suspicion for ac viejas infarction. No extra-axial fluid collections. Mastoid air cells and paranasal sinuses are clear. No globe or orbit abnormality seen. Small focus of fatty tissue near the calcified pineal gland is no t an acute or clinically significant finding atrophy changes are minimal. No measurable chronic ische july change. The patient does have dense arterial tree calcifications. No skull fracture is seen. Marycruz ent has a pronounced but normal variant hyperostosis frontalis interna. Cervical body height and alignment are normal. C4-C6 well-healed fusion changes are present. No fract ure of the anterior fixation hardware. C6-7 disc space is slightly narrowed with endplate spurring. N o fracture or acute bony abnormality. Central canal detail is inherently limited. No paraspinal mass or hematoma. Dense carotid calcifications are present. Partially imaged left jugul ar hemodialysis catheter noted. IMPRESSION: Negative CT head examination for acute or emergent finding. Negative CT cervical spine examination for acute or emergent finding.
[2021-10-14] MEDS ORDERED: TETRACAINE HCL 0.5% 4ML OPTH ONE (20:59)
[2021-10-14] MEDS ORDERED: FLUORESCEIN SODIUM 1 MG/WRAP ONE (20:59)
--- NOTE | 2021-10-14 21:08 | ER ---
Nurse's Notes [facility] Name: Meseret Gallego Age: 66 yrs Sex: Female : 1955 Arrival Date: 10/14/2021 Time: 19:04 Bed 25 Private MD: Diagnosis: Fall on same level from slipping, tripping and stumbling without subsequent striking against object;Injury of conjunctiva and corneal abrasion without foreign body, left eye;Facial contusion Presentation: 10/14 19:16 Chief complaint: Patient states: "Today I had dialysis and then I took a nap. I got up ab2 from my nap and was walking out to the living room and I fell face forwards and hit my head on the coffee table." Pt states she did hit her head. Pt denies LOC. Pt denies use of blood thinners. Pt c/o right shoulder pain and left wrist and ankle pain. Pt c/o headache. 19:16 Acuity: CHRISTOPHER 3 ab2 19:16 Method Of Arrival: Wheelchair ab2 19:19 Coronavirus screen: Vaccine status: Patient reports receiving the 2nd dose of the covid ab2 vaccine. Client denies travel out of the [place] in the last 14 days. At this time, the client does not indicate any symptoms associated with coronavirus-19. Ebola Screen: Patient negative for fever greater than or equal to 101.5 degrees Fahrenheit, and additional compatible Ebola Virus Disease symptoms Patient denies exposure to infectious person. Patient denies travel to an Ebola-affected area in the 21 days before illness onset. No symptoms or risks identified at this time. Initial Sepsis Screen: Does the patient meet any 2 criteria? No. Patient's initial sepsis screen is negative. Does the patient have a suspected source of infection? No. Patient's initial sepsis screen is negative. Risk Assessment: Do you want to hurt yourself or someone else? Patient reports no desire to harm self or others. Onset of symptoms is unknown. Triage Assessment: 19:19 General: Appears in no apparent distress. uncomfortable, Behavior is calm, cooperative, ab2 appropriate for age. Pain: Complains of pain in left hand, right arm and left leg. Neuro: Level of Consciousness is awake, alert, obeys commands, Oriented to person, place, time, situation, Appropriate for age [place] are equal bilaterally Moves all extremities. Gait is steady, Speech is normal, Facial symmetry appears normal. Cardiovascular: Denies chest pain, shortness of breath. Respiratory: Airway is patent Respiratory effort is even, unlabored, Respiratory pattern is regular, symmetrical. GI: No deficits noted. : No deficits noted. No signs and/or symptoms were reported regarding the genitourinary system. Derm: Skin is intact, is healthy with good turgor, Skin is pink, warm \\T\\ dry. Historical: - Allergies: 19:20 Codeine; ab2 19:20 Phenergan; ab2 19:20 Tape; ab2 - PMHx: 19:20 Diabetes - IDDM; Dialysis; Hypertension; Hypothyroidism; ab2 - Immunization history:: Adult Immunizations up to date. - Social history:: Smoking status: Patient denies any tobacco usage or history of. Screenin:35 Abuse screen: Denies threats or abuse. Nutritional screening: No deficits noted. jb4 Tuberculosis screening: No symptoms or risk factors identified. Fall Risk None identified. Assessment: 19:35 General: Appears in no apparent distress. comfortable, Behavior is calm, cooperative, jb4 appropriate for age. Pain: Complains of pain in forehead Pain does not radiate. Pain currently is 7 out of 10 on a pain scale. Neuro: Level of Consciousness is awake, alert, obeys commands, Oriented to person, place, time, situation. Cardiovascular: Patient's skin is warm and dry. Respiratory: Airway is patent Respiratory effort is even, unlabored, Respiratory pattern is regular, symmetrical. GI: No signs and/or symptoms were reported involving the gastrointestinal system. : No signs and/or symptoms were reported regarding the genitourinary system. EENT: No signs and/or symptoms were reported regarding the EENT system. Derm: Skin is intact, Skin is pink, warm \\T\\ dry. Musculoskeletal: Circulation, motion, and sensation intact. Range of motion:. Injury Description: Bruise sustained to forehead is purple. 20:50 Reassessment: Patient appears in no apparent distress at this time. Patient and/or jb4 family updated on plan of care and expected duration. Pain level reassessed. Patient is alert, oriented x 3, equal unlabored respirations, skin warm/dry/pink. 21:11 Reassessment: Patient appears in no apparent distress at this time. Patient and/or jb4 family updated on plan of care and expected duration. Pain level reassessed. Patient is alert, oriented x 3, equal unlabored respirations, skin warm/dry/pink. Vital Signs: 19:19 BP 158 / 95; Pulse 59; Resp 18; Temp 97.7(TE); Pulse Ox 99% ; Weight 108.86 kg; Height ab2 5 ft. 6 in. (167.64 cm); Pain 7/10; 20:45 BP 145 / 80; Pulse 58; Resp 16; Pulse Ox 100% on R/A; jb4 21:00 BP 160 / 71; Pulse 53; Resp 16; Pulse Ox 98% on R/A; jb4 19:19 Body Mass Index 38.74 (108.86 kg, 167.64 cm) ab2 ED Course: 19:04 Patient arrived in ED. mr 19:13 Derek Crespo DO is Attending Physician. ms3 19:19 Triage completed. ab2 19:21 Arm band placed on right wrist. ab2 19:23 Shelton Overton, RN is Primary Nurse. jb4 19:35 Patient has correct armband on for positive identification. Bed in low position. Call jb4 light in reach. Side rails up X 1. Pulse ox on. NIBP on. 20:18 XRAY Chest (1 view) In Process Unspecified. EDMS 20:18 Wrist Left (3 View) XRAY In Process Unspecified. EDMS 20:18 Wrist Right 3 View XRAY In Process Unspecified. EDMS 20:22 CT Head C Spine In Process Unspecified. EDMS Administered Medications: 20:13 Drug: Tylenol 1000 mg Route: PO; jb4 20:13 Drug: Ondansetron 4 mg Route: PO; jb4 Outcome: 21:07 Discharge ordered by . ms3 21:26 Patient left the ED. vc1 Signatures: Dispatcher [employer] Adrianne Grove mr Shelton Overton, RN RN jb4 Derek Crespo DO DO ms3 Dario Simons ab2 Marci Jackson RN RN vc1
--- NOTE | 2021-10-14 21:08 | EDPHYS ---
Physician Documentation [facility] Name: Mseeret Gallego Age: 66 yrs Sex: Female : 1955 Arrival Date: 10/14/2021 Time: 19:04 Bed 25 Private MD: ED Physician Derek Crespo HPI: 10/14 19:47 This 66 yrs old Female presents to ER via Wheelchair with complaints of Fall Injury, ms3 Head Injury-Adult. 19:47 Details of fall: The patient fell from an upright position, while standing. Onset: The ms3 symptoms/episode began/occurred acutely, today. Associated injuries: The patient sustained injury to the head, contusion. Severity of symptoms: At their worst the symptoms were severe, in the emergency department the symptoms are unchanged. 66-year-old female with past medical history of diabetes, hypertension, hypothyroidism, end-stage renal disease presents status post fall with striking her head on a television cabinet while falling. Patient states her pain is an 8/10 stinging. Patient denies alleviating or inciting factors. Patient endorses nausea. Patient denies loss of consciousness.. Historical: - Allergies: 19:20 Codeine; ab2 19:20 Phenergan; ab2 19:20 Tape; ab2 - PMHx: 19:20 Diabetes - IDDM; Dialysis; Hypertension; Hypothyroidism; ab2 - Immunization history:: Adult Immunizations up to date. - Social history:: Smoking status: Patient denies any tobacco usage or history of. ROS: 19:47 Constitutional: Negative for fever, and chills. Neck: Negative for injury, pain, and ms3 swelling, Cardiovascular: Negative for chest pain, and palpitations. Respiratory: Negative for shortness of breath, cough, wheezing, and pleuritic chest pain, Abdomen/GI: Negative for abdominal pain, nausea, vomiting, diarrhea, and constipation, MS/Extremity: Negative for injury and deformity, Skin: Negative for injury, rash, and discoloration. 19:47 MS/extremity: Positive for pain, of the bilateral wrist pain, head pain, back pain. 19:47 Neuro: Negative for headache. 19:47 All other systems are negative. Exam: 19:47 Constitutional: This is a well developed, well nourished patient who is awake, alert, ms3 and in no acute distress. Eyes: Pupils equal round and reactive to light, extra-ocular motions intact. Lids and lashes normal. Conjunctiva and sclera are non-icteric and not injected. Periorbital areas with no swelling, redness, or edema. Neck: Trachea midline, no cervical lymphadenopathy. Supple, full range of motion without nuchal rigidity, or vertebral point tenderness. No Meningismus. Chest/axilla: Normal chest wall appearance and motion. Nontender with no deformity. Cardiovascular: Regular rate and rhythm with a normal S1 and S2. No gallops, murmurs, or rubs. Normal PMI, no JVD. No pulse deficits. Respiratory: Lungs have equal breath sounds bilaterally, clear to auscultation and percussion. No rales, rhonchi or wheezes noted. No increased work of breathing, no retractions or nasal flaring. Abdomen/GI: Soft, non-tender, with normal bowel sounds. No distension or tympany. No guarding or rebound. No evidence of tenderness throughout. Neuro: Awake and alert, GCS 15, oriented to person, place, time, and situation. Cranial nerves II-XII grossly intact. Motor strength 5/5 in all extremities. Sensory grossly intact. Cerebellar exam normal. Normal gait. Psych: Awake, alert, with orientation to person, place and time. Behavior, mood, and affect are within normal limits. 19:47 Head/face: Noted is contusion, that is superficial, of the forehead. 19:58 ECG was reviewed by the Attending Physician. ms3 21:08 Eyes: Corneas: abrasion, that is moderate sized, on the left, at 2 o'clock. ms3 Vital Signs: 19:19 BP 158 / 95; Pulse 59; Resp 18; Temp 97.7(TE); Pulse Ox 99% ; Weight 108.86 kg; Height ab2 5 ft. 6 in. (167.64 cm); Pain 7/10; 20:45 BP 145 / 80; Pulse 58; Resp 16; Pulse Ox 100% on R/A; jb4 21:00 BP 160 / 71; Pulse 53; Resp 16; Pulse Ox 98% on R/A; jb4 19:19 Body Mass Index 38.74 (108.86 kg, 167.64 cm) ab2 MDM: 19:42 Patient medically screened. ms3 19:47 Differential diagnosis: closed head injury, contusion, fracture, sprain, strain. ms3 21:09 Data reviewed: vital signs, nurses notes, lab test result(s), EKG, radiologic studies, ms3 CT scan, plain films. Data interpreted: mercury washer: rate is 60 beats/min, rhythm is normal sinus rhythm, with no ectopy, Interpretation: normal rate, normal rhythm. 21:09 Counseling: I had a detailed discussion with the patient and/or guardian regarding: the ms3 historical points, exam findings, and any diagnostic results supporting the discharge/admit diagnosis, lab results, radiology results, the need for outpatient follow up, to return to the emergency department if symptoms worsen or persist or if there are any questions or concerns that arise at home. Special discussion:. ED course: Discussed labs, x-rays, CT scan, physical exam findings with patient. Patient to follow-up with her primary care physician in 2 to 3 days. Patient understands and agrees with plan. All questions were answered. Return precautions discussed include worsening symptoms, or any other concerns. On reevaluation patient is alert and oriented x4, no apparent distress, nontoxic. Patient received relief of stinging sensation in left eye after tetracaine drops for fluorescein exam.. 10/14 19:45 Order name: Basic Metabolic Panel; Complete Time: 20:49 ms3 10/14 19:45 Order name: CBC with Diff; Complete Time: 20:49 ms3 10/14 19:45 Order name: XRAY Chest (1 view); Complete Time: 20:49 ms3 10/14 19:45 Order name: CT Head C Spine; Complete Time: 20:49 ms3 10/14 19:46 Order name: Wrist Left (3 View) XRAY; Complete Time: 20:49 ms3 10/14 19:46 Order name: Wrist Right 3 View XRAY; Complete Time: 20:49 ms3 10/14 19:45 Order name: EKG; Complete Time: 19:45 ms3 10/14 19:45 Order name: EKG - Nurse/Tech; Complete Time: 20:02 ms3 10/14 19:45 Order name: IV Saline Lock; Complete Time: 20:02 ms3 10/14 19:45 Order name: Labs collected and sent; Complete Time: 20:02 ms3 10/14 19:45 Order name: O2 Per Protocol; Complete Time: 19:46 ms3 10/14 19:45 Order name: O2 Sat Monitoring; Complete Time: 19:46 ms3 EC:58 Rate is 60 beats/min. Rhythm is regular. QRS [place] is Normal. Clinical impression: NSR ms3 w/ Non-specific ST/T Changes. Interpreted by me. Administered Medications: 20:13 Drug: Tylenol 1000 mg Route: PO; jb4 20:13 Drug: Ondansetron 4 mg Route: PO; jb4 Disposition Summary: 10/14/21 21:07 Discharge Ordered Location: Home ms3 Problem: new ms3 Symptoms: are unchanged ms3 Condition: Stable ms3 Diagnosis - Fall on same level from slipping, tripping and stumbling without subsequent ms3 striking against object - Injury of conjunctiva and corneal abrasion without foreign body, left eye ms3 - Facial contusion ms3 Followup: ms3 - With: Private Physician - When: 2 - 3 days - Reason: Re-evaluation by your physician Discharge Instructions: - Discharge Summary Sheet ms3 - Corneal Abrasion ms3 - Contusion, [id number] ms3 Forms: - Medication Reconciliation Form ms3 - Thank You Letter ms3 - Antibiotic Education ms3 - Prescription Opioid Use ms3 Prescriptions: - Erythromycin 5 mg/gram (0.5 %) Ophthalmic Ointment - apply 1 centimeter by OPHTHALMIC route 2-3 times daily for 7 days; 1 tube; ms3 Refills: 0, Product Selection Permitted Signatures: Dispatcher [employer] Shelton Banks, RN RN jb4 Derek Crespo DO DO ms3 Dario Simons ab2 Corrections: (The following items were deleted from the chart) 20:02 19:45 Cardiac monitoring ordered. ms3 jb4
[2021-10-15 04:21] VITALS: TEMP 97.7
[2021-10-15 04:24] VITALS: BP 160/71; O2SAT 98
--- NOTE | 2021-10-17 09:43 | EKG ---
Test Date: 2021-10-14 Test Time: 19:58:07 [employer] Chocolate Dipper: MARIALUISA MEASUREMENT RESULTS: Intervals: Rate: 60 TX: 164 QRSD: 100 QT: 448 QTc: 448 [place]: P: 69 TX: 164 QRS: 17 T: 112 INTERPRETIVE STATEMENTS: Normal sinus rhythm Nonspecific T wave abnormality Abnormal ECG Compared to ECG 09/03/2020 14:38:52 Ventricular premature complex(es) no longer present T-wave abnormality still present Electronically Signed On 10-17-21 09:36:16 CDT by William Uribe
== END 2021-10-14 21:26 | disposition home or self-care (01) ==
LOC: ER 18:53
DX: S05.02XA Injury of conjunctiva and corneal abrasion without foreign body, left eye, initial encounter (principal); W01.198A Fall on same level from slipping, tripping and stumbling with subsequent striking against other object, initial encounter; M25.532 Pain in left wrist; M25.531 Pain in right wrist; E11.22 Type 2 diabetes mellitus with diabetic chronic kidney disease; I12.0 Hypertensive chronic kidney disease with stage 5 chronic kidney disease or end stage renal disease; N18.6 End stage renal disease; Z99.2 Dependence on renal dialysis; Z88.5 Allergy status to narcotic agent; Z88.8 Allergy status to other drugs, medicaments and biological substances; Z91.048 Other nonmedicinal substance allergy status
CPT/HCPCS: 36415; 70450; 71045; 72125; 80048; 85025; 93005; 99283

== ENCOUNTER 2021-10-15 15:08 | Inpatient (IN) | payer OTHER ==
--- OUTSIDE RECORDS SUMMARY | 2021-10-15 14:35 | XMS REPORT | Continuity of Care Document ---
:1955 Author Organization [facility] t Address [address] Castaneda [address] [place] [address] Care Team Providers Name Role Phone [phone] Attending Clinician Unavailable COLLINS MORAES Attending Clinician Unavailable Collins Moraes MD Attending Clinician Pob, Lab Main Attending Clinician Unavailable Only, Test Attending Clinician Unavailable Doctor Unassigned, Name Attending Clinician Unavailable CINDY Attending Clinician Unavailable MD AMY T. Attending Clinician Unavailable AMY Attending Clinician Unavailable Fermin BO Attending Clinician Sly BURROUGHS Attending Clinician RAUL Attending Clinician Unavailable [phone] Admitting Clinician Unavailable COLLINS MORAES Admitting Clinician Unavailable CINDY Admitting Clinician Unavailable MD AMY T. Admitting Clinician Unavailable Collins Moraes MD Admitting Clinician AMY Admitting Clinician Unavailable Payers Payer Name Policy Type Policy Number Effective Date Expiration Date Ash DUKE LEILANI [id number] TANESHA/FRANKI RAHMAN [id number] 2020 ADV CHOICE PPO 00:00:00 MEDICARE PART A [id number] 2020 \T\ B 00:00:00 Problems Condition Condition [...] Active Univers ALLERGIE Class ity of [facility] Social History Social Habit Start Date Stop Date Quantity Comments Source Exposure to Not sure [facility] SARS-CoV-2 (event) Medica l Branch Tobacco use and 2020-10-13 2020-10-13 Never used [facility] exposure 00:00:00 00:00:00 [facility] Sex [birth year] [facility] 00:00:00 00:00:00 [facility] Smoking Status Start Date Stop Date Source Unknown if ever smoked [facility] Never smoker [facility] Medications Ordered Filled Start Stop [...] [place] solution 00 at 1229, Medical Until [place] Discontinu ed, Routine, Intra-op NaCl 0.9% Yes PRN, Univers (NS) 4-08 Starting ity of injection 17:28: [place] 00 at 1228, Medical Until Branch Discontinu ed, Routine, Intra-op neomycin-po Yes PRN, Univer s lymyxin-dex 4-08 Starting ity of amethasone 17:28: [place] 10/14/20 [place] (MAXITROL) 00 at 1228, [...] Units ity of (LANTUS 14:34: under the [place] SOLOSTAR 02 skin 2 Medical U-100 (two) Branch INSULIN) times 100 unit/mL daily. (3 mL) injection amLODIPine Yes 10mg Take 10 mg U nivers 10 mg 4-08 by mouth ity of tablet 14:34: daily. [place] [facility] buPROPion Yes 150mg Take 150 [...] 4-08 by mouth ity of 14:34: daily. [place] [facility] metoprolol Yes 50mg Take 50 mg U nivers succinate 4-08 by mouth 2 ity of XL 50 mg 24 14:34: (two) [place] hr tablet 02 times Medical daily. Branch pantoprazol Yes 40mg Take 40 mg Univers e 40 mg EC 4-08 by mouth ity o f tablet 14:34: daily. [place] [facility] Levothyroxi Yes 150ug Take 150 U nivers ne 100 mcg 4-08 mcg by ity of capsule 14:34: mouth [place] 02 daily. Medical Branch aspirin 325 Yes 325mg Take 325 U nivers mg tablet 4-08 mg by ity of 14:34: mouth daily. Medical Branch Cholecalcif Yes Take by Un hellen daryl, 4-08 mouth. ity of Vitamin D3, 14:34: [place] (VITAMIN [address] [place] [address] D3) 25 mcg Branch (1,000 unit) capsule [...] Units ity of (HUMALOG 16:37: under the [facility] DESTIN 58 skin 3 Medical KWIKPEN (three) Branch U-100) 100 times unit/mL daily. inph Insulin 2019-0 Yes 45U inject 45 Unive rs Glargine 9-24 Units ity of (LANTUS 16:37: under the [place] SOLOSTAR 58 skin 2 Medical U-100 (two) Branch INSULIN) times 100 unit/mL daily. (3 mL) injection amLODIPine 2019-0 Yes 10mg Take 10 mg U nivers 10 mg 9-24 by mouth ity of tablet 16:37: daily. [place] [address] Medical Branch buPROPion 2020-0 Yes 150mg Take [...] by mouth ity of tablet 16:37: daily. [place] [address] Medical Branch metoprolol 2020-0 Yes 50mg Take 50 mg U nivers succinate 9-24 by mouth 2 ity of XL 50 mg 24 16:37: (two) [place] hr tablet 58 times Medical daily. Branch pantoprazol 2020-0 Yes 40mg Take 40 mg Univers e 40 mg EC 9-24 by mouth ity o f tablet 16:37: daily. [place] [address] Medical Branch Levothyroxi 2020-0 Yes 150ug Take [...] 9-24 mouth. ity of Vitamin D3, 16:37: [place] (VITAMIN [address] [place] [address] D3) 25 mcg Branch (1,000 unit) capsule folic 2020-0 Yes Take by Univers acid/multiv 9-24 mouth ity of it-min/lute 16:37: daily. [facility] s in (CENTRUM 58 Medical SILVER Branch ORAL) insulin 2020-0 Yes 30U inject 30 Unive rs lispro 9-24 Units ity of (HUMALOG 16:37: under the [facility] s DESTIN 58 skin 3 Medical KWIKPEN (three) Branch U-100) 100 times unit/mL daily. inph Insulin 2020-0 Yes 45U inject 45 Unive rs Glargine 9-24 Units ity of (LANTUS 16:37: under the [place] SOLOSTAR 58 skin 2 Medical U-100 (two) Branch INSULIN) times 100 unit/mL daily. (3 mL) injection amLODIPine 2020-0 Yes 10mg Take 10 mg U nivers 10 mg 9-24 by mouth ity of tablet 16:37: daily. [place] [address] Medical Branch buPROPion 2020-0 Yes 150mg Take [...] by mouth ity of tablet 16:37: daily. [place] [address] Medical Branch metoprolol 2020-0 Yes 50mg Take 50 mg U nivers succinate 9-24 by mouth 2 ity of XL 50 mg 24 16:37: (two) [place] hr tablet 58 times Medical daily. Branch pantoprazol 2020-0 Yes 40mg Take 40 mg Univers e 40 mg EC 9-24 by mouth ity o f tablet 16:37: daily. [place] [address] Medical Branch Levothyroxi 2020-0 Yes 150ug Take 150 U nivers ne 100 mcg 9-24 mcg by ity of capsule 16:37: mouth [place] 58 daily. Medical Branch aspirin 325 2020-0 Yes 325mg Take 325 U nivers mg tablet 9-24 mg by ity of 16:37: mouth [place] 58 daily. Medical Branch Cholecalcif 2020-0 Yes Take by Un hellen drayl, 9-24 mouth. ity of Vitamin D3, 16:37: [place] (VITAMIN [address] [place] [address] D3) 25 mcg Branch (1,000 unit) capsule folic 2020-0 Yes Take by Univers acid/multiv 9-24 mouth ity of it-min/lute 16:37: daily. [facility] s in (CENTRUM 58 Medical SILVER Branch ORAL) insulin 2020-0 Yes 30U inject 30 Unive rs lispro 9-24 Units ity of (HUMALOG 16:37: under the [facility] s DESTIN 58 skin 3 Medical KWIKPEN (three) Branch U-100) 100 times unit/mL daily. inph Insulin 2020-0 Yes 45U inject 45 Unive rs Glargine 9-24 Units ity of (LANTUS 16:37: under the [place] SOLOSTAR 58 skin 2 Medical U-100 (two) Branch INSULIN) times 100 unit/mL daily. (3 mL) injection amLODIPine 2020-0 Yes 10mg Take 10 mg U nivers 10 mg 9-24 by mouth ity of tablet 16:37: daily. [place] [address] Medical Branch buPROPion 2020-0 Yes 150mg Take [...] by mouth ity of tablet 16:37: daily. [place] [address] Medical Branch metoprolol 2020-0 Yes 50mg Take 50 mg U nivers succinate 9-24 by mouth 2 ity of XL 50 mg 24 16:37: (two) [place] hr tablet 58 times Medical daily. Branch pantoprazol 2020-0 Yes 40mg Take 40 mg Univers e 40 mg EC 9-24 by mouth ity o f tablet 16:37: daily. [place] [address] Medical Branch Levothyroxi 2020-0 Yes 150ug Take [...] 9-24 mouth. ity of Vitamin D3, 16:37: [place] (VITAMIN Medical D3) 25 mcg Branch (1,000 unit) capsule folic 2020-0 Yes Take by Univers acid/multiv 9-24 mouth ity of it-min/lute 16:37: daily. [facility] s in (CENTRUM 58 Medical SILVER Branch ORAL) insulin 2020-0 Yes 30U inject 30 Unive rs lispro 9-24 Units ity of (HUMALOG 16:37: under the [facility] s DESTIN 58 skin 3 Medical KWIKPEN (three) Branch U-100) 100 times unit/mL daily. inph Insulin 2020-0 Yes 45U inject 45 Unive rs Glargine 9-24 Units ity of (LANTUS 16:37: under the [place] SOLOSTAR 58 skin 2 Medical U-100 (two) Branch INSULIN) times 100 unit/mL daily. (3 mL) injection amLODIPine 2020-0 Yes 10mg Take 10 mg U nivers 10 mg 9-24 by mouth ity of tablet 16:37: daily. [place] [address] Medical Branch buPROPion 2020-0 Yes 150mg Take [...] by mouth ity of tablet 16:37: daily. [place] [address] Medical Branch metoprolol 2020-0 Yes 50mg Take 50 mg U nivers succinate 9-24 by mouth 2 ity of XL 50 mg 24 16:37: (two) [place] hr tablet 58 times Medical daily. Branch pantoprazol 2020-0 Yes 40mg Take 40 mg Univers e 40 mg EC 9-24 by mouth ity o f tablet 16:37: daily. [place] [address] Medical Branch Levothyroxi 2020-0 Yes 150ug Take [...] 9-24 mouth. ity of Vitamin D3, 16:37: [place] (VITAMIN 58 [facility] D3) 25 mcg Branch (1,000 unit) capsule folic 2020-0 Yes Take by Univers acid/multiv 9-24 mouth ity of it-min/lute 16:37: [place]. [place] in (CENTRUM 58 Medical SILVER Branch ORAL) insulin 2020-0 Yes 30U inject 30 Unive rs lispro 9-24 Units ity of (HUMALOG 13:50: under the [facility] DESTIN 18 skin 3 Medical KWIKPEN (three) Branch U-100) 100 times unit/mL daily. inph Insulin 2020-0 Yes 45U inject 45 Unive rs Glargine 9-24 Units ity of (LANTUS 13:50: under the [place] SOLOSTAR 18 skin 2 Medical U-100 (two) Branch INSULIN) times 100 unit/mL daily. (3 mL) injection amLODIPine 2020-0 Yes 10mg Take 10 mg U nivers 10 mg 9-24 by mouth ity of tablet 13:50: daily. [place] [address] Medical Branch buPROPion 2020-0 Yes 150mg Take [...] by mouth ity of tablet 13:50: daily. [place] [address] Medical Branch metoprolol 2020-0 Yes 50mg Take 50 mg U nivers succinate 9-24 by mouth 2 ity of XL 50 mg 24 13:50: (two) [place] hr tablet 18 times Medical daily. Branch pantoprazol 2020-0 Yes 40mg Take 40 mg Univers e 40 mg EC 9-24 by mouth ity o f tablet 13:50: daily. [place] [address] Medical Branch Levothyroxi 2020-0 Yes 150ug Take [...] 9-24 mouth. ity of Vitamin D3, 13:50: [place] (VITAMIN [address] [place] [address] D3) 25 mcg Branch (1,000 unit) capsule folic 2020-0 Yes Take by Univers acid/multiv 9-24 mouth ity of it-min/lute 13:50: [place]. [place] in (CENTRUM 18 Medical SILVER Branch ORAL) insulin 2020-0 Yes 30U inject 30 Unive rs lispro 9-24 Units ity of (HUMALOG 13:50: under the [facility] DESTIN 18 skin 3 Medical KWIKPEN (three) Branch U-100) 100 times unit/mL daily. inph Insulin 2020-0 Yes 45U inject 45 Unive rs Glargine 9-24 Units ity of (LANTUS 13:50: under the [place] SOLOSTAR 18 skin 2 Medical U-100 (two) Branch INSULIN) times 100 unit/mL daily. (3 mL) injection amLODIPine 2020-0 Yes 10mg Take 10 mg U nivers 10 mg 9-24 by mouth ity of tablet 13:50: daily. [place] [address] Medical Branch buPROPion 2020-0 Yes 150mg Take [...] by mouth ity of tablet 13:50: daily. [place] [address] Medical Branch metoprolol 2020-0 Yes 50mg Take 50 mg U nivers succinate 9-24 by mouth 2 ity of XL 50 mg 24 13:50: (two) [place] hr tablet 18 times Medical daily. Branch pantoprazol 2020-0 Yes 40mg Take 40 mg Univers e 40 mg EC 9-24 by mouth ity o f tablet 13:50: daily. [place] [address] Medical Branch Levothyroxi 2020-0 Yes 150ug Take [...] 04-01 mouth. ity of Vitamin D3, 13:50: [place] (VITAMIN 18 Medical D3) 25 mcg Branch [...] s, ONCE ity of 13:04: 13:33 INTRA [place] 00 :17 PROCEDURE, Medical Starting Branch K[place]le 04/01/20 at 0804, Until [place] 04/01/20 at 0833, Routine, Intra-op propofoL IV 2020-0 2020- No Intravenou Univers infusion 04-01 s, ONCE ity of 13:04: 13:33 INTRA [place] 00 :17 PROCEDURE, Medical Starting Branch [place] 04/01/20 at 0804, Until [place] 04/01/20 at 0833, Routine, Intra-op lidocaine 2020-0 2020- No ONCE INTRA U nivers 1% 04-01 PROCEDURE, ity of (XYLOCAINE) 13:02: 13:33 Starting [place] 100 mg/10 00 :17 Krystle Medical mL (1 %) 04/01/20 at [facility] h injection 0802, Until [place] 04/01/20 at 0833, Routine, Intra-op remifentani 2020-0 2020- No Intravenou Univers L (ULTIVA) 04-01 s, ONCE ity o f injection 13:02: 13:33 INTRA [place] 00 :17 PROCEDURE, Medical Starting Branch [place] 04/01/20 at 0802, Until [place] 04/01/20 at 0833, Routine, Intra-op lidocaine 2020-0 2020- No ONCE INTRA U nivers 1% 04-01 PROCEDURE, ity of (XYLOCAINE) 13:02: 13:33 Starting [place] 100 mg/10 00 :17 Krystle Medical mL (1 %) 04/01/20 at [facility] h injection 0802, Until [place] 04/01/20 at 0833, Routine, Intra-op remifentani 2020-0 2020- No Intravenou Univers L (ULTIVA) 04-01 s, ONCE ity o f injection 13:02: 13:33 INTRA [place] 00 :17 PROCEDURE, Medical Starting Branch [facility] 04/01/20 at 0802, Until [place] 04/01/20 at 0833, Routine, Intra-op lactated 2020-0 2020- No IV Univers ringers IV 04-01 Infusion, ity of infusion 13:01: 13:33 CONTINUOUS [place] 00 :17 PRN, Medical Starting Branch [facility] 04/01/20 at 0801, Until [place] 04/01/20 at 0833, Routine, Intra-op lactated 2020-0 2020- No IV Univers ringers IV 04-01 Infusion, ity of infusion 13:01: 13:33 CONTINUOUS [place] 00 :17 PRN, Medical Starting Branch [facility] 04/01/20 at 0801, Until [place] 04/01/20 at [...] amethasone 12:52: Krystle [place] (MAXITROL) 04/01/20 at [facility] ical 3.5 0752, [place] mg/g-10,000 Until unit/g-0.1 Discontinu % ed, ophthalmic Routine, ointment Intra-op gentamicin 2020-0 Yes PRN, Univers injection 04-01 Starting ity of 12:52: Krystle [place] 04/01/20 at [place] [address], [place] Until Discontinu ed, VIOLETTA, Intra-op eye block 2020-0 Yes PRN, Univers syringe 11 04-01 Starting ity o f mL 12:51: Krystle [place] 04/01/20 at [place] [address], [place] Until Discontinu ed, Intra-op EPINEPHrine 2020-0 Yes PRN, Univer s (PF) 04-01 Starting ity of 1:1,000 (1 12:51: Krystle [place] mg/mL) 04/01/20 at [facility] (ADRENALIN 0751, [place] (PF)) Until injection Discontinu ed, Routine, Intra-op DUOVISC 2020-0 Yes PRN, Univers (DUOVISC 04-01 Starting ity of VISCO 12:51: Krystle [place] ELASTIC) 3 04/01/20 at [facility] ica %-4 %(0.5 0751, [place] mL) 1 % Until (0.55 mL) Discontinu intraocular ed, injection Routine, Intra-op dexamethaso 2020-0 Yes PRN, [facility] s ne 04-01 Starting ity of (DECADRON 12:50: Krystle [place] PHOSPHATE) 04/01/20 at [facility] ical injection [facility]0, [place] Until Discontinu ed, Routine, Intra-op ceFAZolin 2020-0 Yes PRN, Univers (ANCEF) 04-01 Starting ity of injection 12:50: Krystle [place] 04/01/20 at [place] [address], [place] Until Discontinu ed, VIOLETTA, Intra-op balanced 2020-0 Yes PRN, Univers salt soln 04-01 Starting ity of no.2 irrig. 12:49: Krystle [place] (BSS) 04/01/20 at [facility] ophthalmic 0749, [place] solution Until Discontinu ed, Routine, Intra-op lactated 2020-0 2020- No 1000mL at [address] [place] [address] rs ringers IV 04-0124 mL/hr, ity of [...] 2020-10-14 14:10:00 120 mm[Hg] Univer sity of [facility] Diastolic blood 2020-10-14 14:10:00 65 mm[Hg] [facility] Heart rate 2020-10-14 14:10:00 81 /min [facility] Body temperature 2020-10-14 14:10:00 36.06 Katharina [facility] Respiratory rate 2020-10-14 14:10:00 13 /min [facility] Oxygen saturation in 2020-10-14 14:10:00 99 /min [facility] blood by [facility] Pulse oximetry [place] Body height 2020-10-01 18:42:00 167.6 cm [facility] Body weight 2020-10-01 18:42:00 108.4 kg [facility] BMI 2020-10-01 18:42:00 38.59 kg/m2 [facility] Systolic blood 2020-10-14 14:10:00 120 mm[Hg] Univer sity of [facility] Diastolic blood 2020-10-14 14:10:00 65 mm[Hg] [facility] Heart rate 2020-10-14 14:10:00 81 /min [facility] Body temperature 2020-10-14 14:10:00 36.06 Katharina [facility] 2020-10-14 14:10:00 13 /min Univ ersity of [place] [facility] Oxygen saturation in 2020-10-14 14:10:00 99 /min University of Arterial blood by [facility] Pulse oximetry Branch Body height 2020-10-01 18:42:00 167.6 cm Universi ty of [place] [facility] Body weight 2020-10-01 18:42:00 108.4 kg Universi ty of [place] [facility] BMI 2020-10-01 18:42:00 38.59 kg/m2 Universi ty of [place] [facility] Systolic blood 2020-04-01 13:55:00 113 mm[Hg] Univer sity of pressure [place] [facility] Diastolic blood 2020-04-01 13:55:00 56 mm[Hg] Unive rsity of pressure [place] [facility] Heart rate 2020-04-01 13:55:00 63 /min Universi ty of [place] [facility] Body temperature 2020-04-01 13:55:00 36.11 Katharina Univ ersity of [place] [facility] Oxygen saturation in 2020-04-01 13:50:00 100 /min University of Arterial blood by [facility] Pulse oximetry Branch Respiratory rate 2020-04-01 13:45:00 18 /min Univ ersity of [place] [facility] Body height 2020-03-30 17:15:00 167.6 cm Universi ty [facility] [place] [facility] Body weight 2020-03-30 17:15:00 108.41 kg Universi ty of [place] [facility] BMI 2020-03-30 17:15:00 38.58 kg/m2 Universi ty of [place] [facility] Systolic blood 2020-04-01 13:55:00 113 mm[Hg] Univer sity of pressure [place] [facility] Diastolic blood 2020-04-01 13:55:00 56 mm[Hg] Unive rsity of pressure [place] [facility] Heart rate 2020-04-01 13:55:00 63 /min Universi ty of [place] [facility] Body temperature 2020-04-01 13:55:00 36.11 Katharina Univ ersity of [place] [facility] Oxygen saturation in 2020-04-01 13:50:00 100 /min University of Arterial blood by [facility] Pulse oximetry Branch Respiratory rate 2020-04-01 13:45:00 18 /min Univ ersity of [place] [facility] Body height 2020-03-30 17:15:00 167.6 cm Universi ty [facility] [place] [facility] Body weight 2020-03-30 17:15:00 108.41 kg [facility] BMI 2020-03-30 17:15:00 38.58 kg/m2 [facility] Respiratory rate 2020-04-01 13:32:00 18 /min [facility] Respiratory rate 2020-04-01 13:32:00 18 /min [facility] Procedures Procedure Date / Time Performing Source Performed Clinician PHACOEMULSIFICATION OF 2020-10-14 Aleisha [facility] CATARACT WITH INTRAOCULAR 13:33:00 [place] [facility] LENS IMPLANT POCT GLUCOSE (AUTOMATED) 2020-10-14 Aleisha [facility] 12:38:00 [place] [facility] POCT GLUCOSE(AGE >30DAYS) 2020-10-14 Anita [facility] 12:35:00 Medical Branch ASSIGNMENT OF BENEFITS 2020-10-12 Doctor Unassigned, [facility] 16:32:53 [place] [facility] POCT GLUCOSE(AGE >30DAYS) 2020-04-01 [facility] 12:03:00 Medical Branch ASSIGNMENT OF BENEFITS 2020-03-30 Doctor Unassigned, [facility] 16:01:28 [place] [facility] NOTICE OF BILLING PRACTICES 2020-03-23 Doctor Unassigned, [facility] FOR MEDICARE PATIENTS 20:49:43 [place] [facility] anch [facility] PATIENT FINANCIAL POLICY 2020-03-23 Doctor Unassigned, [facility] 20:49:19 [place] [facility] NO SHOW OR MISSED APPOINTMENT 2020-03-23 Doctor Unassigned, [facility] POLICY ACKNOWLEDGEMENT 20:48:59 [place] [facility] B ranch NOTICE OF PRIVACY PRACTICES 2020-03-23 Doctor Unassigned, [facility] 20:48:48 [place] [facility] CONSENT/REFUSAL FOR DIAGNOSIS 2020-03-23 Doctor Unassigned, [facility] AND TREATMENT 20:48:30 [place] [facility] ASSIGNMENT OF BENEFITS 2020-03-23 Doctor Unassigned, [facility] 20:48:19 [place] [facility] PHYSICIAN ORDERS 2020-03-23 Doctor Unassigned, [facility] 05:01:00 [place] [facility] Encounters Start End Encounter Admission Attending Care Care Encounter Source Date/Time Date/Time Type Type Clinicians Facility Department ID 2021-08-04 Outpatient [id number] [facility] REF [id number] [facility] 13:44:15 0117 2021-08-04 Outpatient 3 [id number] [facility] REF [id number] [facility] 13:21:20 1122 2021-05-08 Outpatient Estevan MORAES TXEBENEZER OPH [id number] Univers 08:53:46 FAUSTO adam [facility] 2021-05-06 Outpatient R ALEISHA TXEBENEZER ECTOR [id number] Univers 18:47:42 FAUSTO adam [facility] 2020-10-14 2020-10-14 Surgery Aleisha [facility] [id number] Univers 08:34:00 09:10:00 Fausto Garza [id number] i ty of [place] 4[place].2.686 [place] [id number] [address] 2020-10-14 2020-10-14 Surgery [facility] [id number] 08:34:00 09:10:00 Greg [id number] [place] 4.2.7.2.686 Surgical [id number] [place] [address] 2020-10-12 2020-10-12 Warehouse Man Jyoti, [facility] Lab Main [facility] 1.2.8 40.114 [id number] [facility] 11:40:06 11:55:06 Visit Fausto Moraes 350.1.1 3.10 ity of [place].2.686 [place] Professio [id number] Mn dical [address] 2020-10-12 2020-10-12 Warehouse Man Jyoti, [facility] 1.2.840.114 [id number] 11:40:06 11:55:06 Visit Lab Main Greg [id number] [place] 4.2.7.2.686 Professio [id number] [address] 2020-10-12 2020-10-12 Laboratory Only, [facility] Test [facility] 1.2.840. 114 [id number] Univers 11:34:36 11:49:36 Only Fausto Moraes [place] 350.1.1 3.10 ity of [place] 4[place]2.7.2.686 [place] [facility] [id number] [facility] 353 Branch 2020-10-12 2020-10-12 Laboratory Only, Juanpablo [facility] 1.2.840.114 [id number] 11:34:36 11:49:36 Only Test Greg 350.1.13.10 [place] 4.2.7.2.686 [facility] [id number] 353 2020-10-12 2020-10-12 Outpatient R [facility] [id number] Univers 10:45:00 10:45:00 [id number] ity [facility] 2020-10-12 2020-10-[address] [facility] [id number] Univers 10:45:00 10:45:00 FAUSTO adam [facility] 2020-10-12 2020-10-12 Orders Doctor VELOZ 1.2.840.114 [id number] 00:00:00 00:00:00 Only Unassigned, CINDY [id number] [place] [facility] 4.2.7.2.686 [id number] 2020-10-12 2020-10-12 Orders Doctor VELOZ 1.2.840.114 [id number] Univers 00:00:00 00:00:00 Only Unassigned, CINDY 350.1.13.10 [facility] [place] [facility] 4.2.7.2.686 [place] as [id number] [facility] 009 Branch 2020-05-13 2020-05-14 Outpatient SUSAN WHITE [facility] [id number] [place] 00:00:00 00:00:[address] 2020-05-11 2020-05-11 Outpatient AMY [facility] [id number] [place] 00:00:00 00:00:00 IMRAN [address] 2020-04-01 2020-04-01 [facility] 1.2.840.114 [id number] 06:36:00 10:10:00 Encounter Fausto Garza [id number] [place] 4.2.7.2.686 Surgical [id number] [place] [address] 2020-04-01 2020-04-01 [facility] 1.2.840.114 [id number] Univers 06:36:00 10:10:00 Encounter Fausto Garza 350.1.13.10 ity of [place] 4[place]7.2.[place] [id number] [facility] 071 Branch 2020-04-01 2020-04-01 Anesthesia Demetrio Christensen [facility] 1.2.840.11 [id number] 08:01:00 08:33:00 Heart, Tracy Garza 350.1.13.10 [place] 4.2.7.2.686 Surgical [id number] [place] 020 2020-04-01 2020-04-01 Anesthesia Demetrio Christensen [facility] 1.2.840.11 [id number] Univers 08:01:00 08:33:00 Heart, Tracy Garza 350.1.13.10 ity of [place] 4[place]2.7.2.686 [place] [id number] [facility] 020 [place] 2020-03-31 2020-03-31 Outpatient R ALEISHA [facility] [id number] Univers 09:30:00 09:30:00 FAUSTO [id number] ity [facility] 2020-03-31 2020-03-31 Outpatient R ALEISHA [facility] [id number] Univers 09:30:00 09:30:00 FAUSTO ity [facility] 2020-03-30 2020-03-30 Outpatient R [facility] [id number] Univers 12:45:00 12:45:00 [id number] ity [facility] 2020-03-30 2020-03-30 Outpatient R [facility] [id number] Univers 12:45:00 12:45:00 ity [facility] 2020-03-30 2020-03-30 Laboratory Only, Adc Test [facility] [id number]. [id number] Univers 11:17:56 11:32:56 Only Fausto Moraes 350.1.1 3.10 ity of [place] 4[place]2.7.2.686 [place] [facility] [id number] [address] 2020-03-30 2020-03-30 Orders Doctor VELOZ [id number] Univers 00:00:00 00:00:00 Only Unassigned, CINDY 350.1.13.[address] [facility] 4.2.7.2.686 [place] as [id number] [address] 2020-03-25 2020-03-25 Outpatient AMY [facility] 021 [id number] [place] 00:00:00 00:00:00 IMRAN 879 Method i 2020-03-23 2020-03-23 Warehouse Man Jyoti, Juanpablo Lab Main [facility] 1.2.8 40.114 [id number] [facility] 15:51:10 16:06:10 Visit Fausto Moraes 350.1.1 3.10 ity [facility] 4.2.7.2.686 Jonelle Floresessio [phone] Mn dical [address] 2020-03-23 2020-03-23 Outpatient Estevan MORAES [facility] [id number] [facility] 16:00:00 16:00:00 FAUSTO adam [facility] 2020-03-23 2020-03-23 Outpatient AMY [facility] [id number] [place] 00:00:00 00:00:00 IMRAN 636 Method i 2020-03-23 2020-03-23 Outpatient WOJCIECHOWS [facility] [id number] [place] 00:00:00 00:00:00 KI, [address] Results Test Description Test Time Test Comments Results Result Comments Source POCT GLUCOSE (AUTOMATED) 2020-10-14 12:45:50 Test Item Value Reference Range Interpretation Comme nts POCT GLU (test code = 8327500736) 255 mg/dL 70-110 H Lab Interpretation (test code = 02449-9) [id number] 12:35:00 Test Item Value Reference Range Interpretation Comments POCT Glu (age>30days) (test code = 255 mg/dL 70-110 A 3342) Lab Interpretation (test code = Abnormal 36175-8) [facility] [Presence] in Respiratory specimen by JUANY with probe [id number] 01:15:19 Test Item Value Reference Range Interpretation Comments SARS-CoV-2 (COVID-19) RNA Not detected Not-Detected [Presence] in Respiratory specimen by JUANY with probe detection (test code = 30291-0) POCT [id number] 12:03:00 Test Item Value Reference Range Interpretation Comments POCT Glu (age>30days) (test code = 142 mg/dL 70-110 A 3342) Lab Interpretation (test code = Abnormal 17282-9) [facility] [Presence] in Respiratory specimen by JUANY with probe [id number] 18:03:16 Test Item Value Reference Range Interpretation Comments SARS-CoV-2 (COVID-19) RNA Not detected Not-Detected [Presence] in Respiratory specimen by JUANY with probe detection (test code = 59033-4)
[2021-10-15] MEDS ORDERED: MECLIZINE HCL 12.5 MG TAB ONE (15:47)
[2021-10-15 16:30] LABS: Urine Blood 1+ (Negative); Urine Glucose Trace (Negative); Urine Protein 3+ (Negative); Urine Specific Gravity 1.025 (1.005-1.030)
[2021-10-15 16:31] LABS: Hematocrit 27.8 % (36.0-45.0); Lymphocytes % 9.5 % (15.3-44.8); MPV 7.8 fL (7.6-11.3); RBC Red Blood Cell Count 2.96 M/uL (3.86-4.86)
--- NOTE | 2021-10-15 16:46 | RAD REPORT ---
EXAM DESCRIPTION: CT - Head Brain Wo Cont - 10/15/2021 4:28 pm CLINICAL HISTORY: Head injury status post fall COMPARISON: October TECHNIQUE: Computed axial tomography of the head was obtained. IV contrast was not requested. All CT scans are performed using dose optimization technique as appropriate and may include automated exposure control or mA/KV adjustment according to patient size. FINDINGS: An intracranial bleed is not seen . The ventricles are normal in caliber. No extra-axial fluid collection is noted. No significant hypodense area within the brain. Small araceli pineal lipoma unchanged. Vertebral artery calcifications Fluid within the sinuses/ mastoids is not seen. IMPRESSION: No acute intracranial abnormality is seen. If patient's symptoms persist MRI of the bra in would be recommended.
[2021-10-15 17:04] LABS: Potassium 4.6 mmol/L (3.5-5.1)
[2021-10-15 18:24] LABS: Urine Bacteria <20 /HPF (<20)
--- NOTE | 2021-10-15 19:43 | ER ---
Nurse's Notes [facility] Name: Meseret Gallego Age: 66 yrs Sex: Female : 1955 Arrival Date: 10/15/2021 Time: 15:17 Bed 16 Private MD: Diagnosis: Repeated falls;Visual hallucinations;Contusion of other part of head;End stage renal disease Presentation: 10/15 15:15 Chief complaint: Patient's son or daughter states: pr called ems for multiple falls and 6 dizziness. states that she was seen here yesterday and was told everything was ok but became dizzy again today. 15:15 Method Of Arrival: EMS: [facility] 15:15 Coronavirus screen: Vaccine status: Patient reports receiving the 2nd dose of the covid jh6 vaccine. Ebola Screen: Patient negative for fever greater than or equal to 101.5 degrees Fahrenheit, and additional compatible Ebola Virus Disease symptoms Patient denies exposure to infectious person. Patient denies travel to an Ebola-affected area in the 21 days before illness onset. Initial Sepsis Screen: Does the patient meet any 2 criteria? No. Patient's initial sepsis screen is negative. Does the patient have a suspected source of infection? No. Patient's initial sepsis screen is negative. Risk Assessment: Do you want to hurt yourself or someone else? Patient reports no desire to harm self or others. Onset of symptoms was October 14, 2021. 15:15 Acuity: CHRISTOPHER 3 jh6 Triage Assessment: 16:03 General: Appears in no apparent distress. Behavior is calm, cooperative. Pain: Denies [facility] pain. Neuro: No deficits noted. Reports dizziness, since yesterday. Historical: - Allergies: 16:02 Codeine; jh6 16:02 Phenergan; jh6 16:02 Tape; jh6 - PMHx: 16:02 Diabetes - IDDM; Dialysis; Hypertension; Hypothyroidism; jh6 - Immunization history:: Adult Immunizations up to date. - Social history:: Smoking status: Patient denies any tobacco usage or history of. Screenin:04 Abuse screen: Denies threats or abuse. Nutritional screening: No deficits noted. 6 Tuberculosis screening: No symptoms or risk factors identified. Fall Risk Fall in past 12 months (25 points). Secondary diagnosis (15 points) impaired mobility, IV access (20 points). Assessment: 16:03 General: Appears in no apparent distress. Behavior is calm, cooperative. Pain: Denies jh6 pain. Neuro: No deficits noted. Level of Consciousness is awake, alert, obeys commands, Reports dizziness. 17:30 Reassessment: Patient and/or family updated on plan of care and expected duration. Pain jh6 level reassessed. Patient is alert, oriented x 3, equal unlabored respirations, skin warm/dry/pink. states that she is no longer dizzy Patient states feeling better. 19:00 Reassessment: Patient and/or family updated on plan of care and expected duration. Pain ag7 level reassessed. Patient is alert, oriented x 3, equal unlabored respirations, skin warm/dry/pink. Patient denies pain at this time. Cardiovascular: Heart tones muffled Capillary refill < 3 seconds in bilateral fingers Patient's skin is warm and dry. Pulses are 1+ in right radial artery and left radial artery Edema is 1+ to left ankle, left foot, right ankle and right foot pitting to left ankle, left foot, right ankle and right foot. Respiratory: Airway is patent Trachea midline Respiratory effort is even, unlabored, Breath sounds are clear bilaterally. 20:21 Reassessment: Patient and/or family updated on plan of care and expected duration. Pain bb level reassessed. pt requesting food sandwich given with drink. Vital Signs: 15:31 BP 139 / 79; Pulse 60; Resp 18; Pulse Ox 99% ; mb7 15:44 Temp 98.1; Weight 122.47 kg; Height 5 ft. 7 in. (170.18 cm); mb7 17:45 BP 138 / 72; Pulse 57; Resp 18; Pulse Ox 97% ; Pain 0/10; jh6 19:01 BP 170 / 71; Pulse 55; Resp 17; Pulse Ox 99% ; Pain 0/10; jh6 20:22 BP 157 / 91; Pulse 66; Resp 18 S; Pulse Ox 100% on R/A; bb 15:44 Body Mass Index 42.29 (122.47 kg, 170.18 cm) mb7 ED Course: 15:17 Patient arrived in ED. eb 15:19 Abdiel Liz NP is PHCP. pm1 15:19 Sukhi Uribe MD is Attending Physician. pm1 15:41 Kristina Hunter, RN is Primary Nurse. jh6 15:45 EKG done, by ED staff, reviewed by Abdiel Liz ENAMEL BURNER. mb7 15:50 No provider procedures requiring assistance completed. Inserted saline lock: 22 gauge 6 in left forearm, using aseptic technique. Blood collected. 16:02 Triage completed. jh6 16:03 Arm band placed on right wrist. jh6 16:04 Bed in low position. Call light in reach. Side rails up X 1. jh6 16:[address] jh6 16:30 CT Head Brain wo Cont In Process Unspecified. EDMS 16:31 Patient moved back from CT. jh6 18:20 Urine Microscopic Only Sent. mb7 19:42 Stephanie Schumacher PA is Hospitalizing Provider. pm1 Administered Medications: 15:45 Drug: Meclizine 50 mg Route: PO; 6 Outcome: 19:43 Decision to Hospitalize by Provider. pm1 22:07 Admitted to Med/surg accompanied by nurse, via wheelchair, room 218, Report called to abner Boston RN 3622 22:08 Patient left the ED. [facility] Signatures: Dispatcher [employer] EDMS Megan Stark, RN Abdiel Gracia NP ENAMEL BURNER pm1 Angeles Mccallum Kristina Hunter, RN RN [facility] Adrianne Her 7 Nicolasa Gastelum RN RN [facility]
--- NOTE | 2021-10-15 19:43 | EDPHYS ---
Physician Documentation [facility] Name: Meseret Gallego Age: 66 yrs Sex: Female : 1955 Arrival Date: 10/15/2021 Time: 15:17 Bed 16 Private MD: ED Physician Sukhi Uribe HPI: 10/15 15:37 This 66 yrs old Female presents to ER via EMS with complaints of Repeated Falls. pm1 15:37 The patient's problem is reported as Repeated falls. Onset: The symptoms/episode pm1 began/occurred yesterday. Context: occurred at home, occurred while the patient was walking, Possible contributing factors include: Unknown. The symptoms are alleviated by nothing. The symptoms are aggravated by nothing. 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 Severity of symptoms: in the emergency department the symptoms are worse. The patient has not experienced similar symptoms in the past. The patient has been recently seen at the [facility] Emergency Department, yesterday, for similar complaints labs were performed, X-rays were performed, CT scan was performed. 17:51 Patient is reporting visual hallucinations onset this morning. pm1 Historical: - Allergies: 16:02 Codeine; jh6 16:02 Phenergan; jh6 16:02 Tape; jh6 - PMHx: 16:02 Diabetes - IDDM; Dialysis; Hypertension; Hypothyroidism; jh6 - Immunization history:: Adult Immunizations up to date. - Social history:: Smoking status: Patient denies any tobacco usage or history of. ROS: 15:37 Constitutional: Negative for fever, chills, and weight loss, Cardiovascular: Negative pm1 for chest pain, palpitations, and edema, Respiratory: Negative for shortness of breath, cough, wheezing, and pleuritic chest pain, Abdomen/GI: Negative for abdominal pain, nausea, vomiting, diarrhea, and constipation, MS/Extremity: Negative for injury and deformity, Skin: Negative for injury, rash, and discoloration. 15:37 Neuro: Positive for weakness, of the right leg and left leg, Negative for headache. 15:37 Psych: Positive for visual hallucinations. 15:37 All other systems are negative. Exam: 15:37 Constitutional: This is a well developed, well nourished patient who is awake, alert, pm1 and in no acute distress. 15:37 Back: No spinal tenderness. No costovertebral tenderness. Full range of motion. Skin: Warm, dry with normal turgor. Normal color with no rashes, no lesions, and no evidence of cellulitis. MS/ Extremity: Pulses equal, no cyanosis. Neurovascular intact. Full, normal range of motion. 15:37 Head/face: Noted is no obvious of injury or deformity except contusion, that is superficial, of the left eye. 15:37 Eyes: Exam is negative for acute changes, Extraocular movements: no acute changes, Conjunctiva: no acute changes, no injection. 15:37 ENT: Exam is negative for acute changes, Mouth: no acute changes, Lips: normal, moist, Oral mucosa: normal, pink and intact, moist. 15:37 Chest/axilla: Inspection: normal, Palpation: is normal, no crepitus, no tenderness, left sided amaury port. 15:37 Cardiovascular: Exam negative for acute changes, Rate: normal, Rhythm: regular, Pulses: no pulse deficits are appreciated, Heart sounds: normal, normal S1and S2. 15:37 Respiratory: Exam negative for acute changes, respiratory distress, shortness of breath, Breath sounds: are clear throughout. 15:37 Abdomen/GI: Inspection: abdomen appears normal, Palpation: abdomen is soft and non-tender, in all quadrants. 15:37 Neuro: Exam negative for acute changes, Orientation: is normal, Mentation: is normal, Motor: is normal, moves all fours, strength is 5/5 in all extremities. 19:51 Radiologist reports: CT brain: Negative for acute findings pm1 Vital Signs: 15:31 BP 139 / 79; Pulse 60; Resp 18; Pulse Ox 99% ; mb7 15:44 Temp 98.1; Weight 122.47 kg; Height 5 ft. 7 in. (170.18 cm); mb7 17:45 BP 138 / 72; Pulse 57; Resp 18; Pulse Ox 97% ; Pain 0/10; jh6 19:01 BP 170 / 71; Pulse 55; Resp 17; Pulse Ox 99% ; Pain 0/10; jh6 20:22 BP 157 / 91; Pulse 66; Resp 18 S; Pulse Ox 100% on R/A; bb 15:44 Body Mass Index 42.29 (122.47 kg, 170.18 cm) mb7 MDM: 15:21 Patient medically screened. pm1 17:51 Data reviewed: vital signs. Data interpreted: Pulse oximetry: on room air is 99 %. pm1 Interpretation: normal. 17:51 Differential diagnosis: CVA, TIA, Uremia, UTI, DKA, Vertigo. ED course: Patient reports pm1 that meclizine worked well for her vertigo. Patient reports that she was having some hallucinations this AM, she saw snow on her roof top. Informed patient that her work up is wnls except for her BUN and Cr which is elevated as expected. No changes from her work up from yesterday. Will get urine microscopy to evaluate further for the presence of UTI and possible source for hallucinations. 19:35 Counseling: I had a detailed discussion with the patient and/or guardian regarding: the pm1 historical points, exam findings, and any diagnostic results supporting the discharge/admit diagnosis, lab results, radiology results, the need for further work-up and treatment in the hospital. 19:54 Physician consultation: Stephanie OROZCO was contacted at 19:54, regarding admission, pm1 patient's condition, and will see patient in ED, shortly. 10/15 15:36 Order name: CBC with Diff; Complete Time: 16:53 pm1 10/15 15:36 Order name: BMP; Complete Time: 17:20 pm1 10/15 15:36 Order name: CT Head Brain wo Cont; Complete Time: 16:53 pm1 10/15 16:31 Order name: Urine Dipstick-Ancillary; Complete Time: 16:34 EDMS 10/15 17:51 Order name: Urine Microscopic Only; Complete Time: 18:27 pm1 10/15 20:09 Order name: COVID-19/FLU A+B (Document "Date of Onset" if Symptomatic); Complete Time: lp1 21:02 10/15 21:02 Interpretation: Within normal limits. ms3 10/15 15:36 Order name: EKG; Complete Time: 15:37 pm1 10/15 15:36 Order name: EKG - Nurse/Tech; Complete Time: 15:55 pm1 10/15 15:36 Order name: Urine Dipstick-Ancillary (obtain specimen); Complete Time: 16:31 pm1 Administered Medications: 15:45 Drug: Meclizine 50 mg Route: PO; jh6 Disposition Summary: 10/15/21 19:43 Hospitalization Ordered Hospitalization Status: Inpatient Admission pm1 Provider: Stephanie Schumacher pm1 Location: Telemetry/MedSur (Inpatient) pm1 Condition: Stable pm1 Problem: new pm1 Symptoms: have worsened pm1 Bed/Room Type: Standard pm1 Room Assignment: 218(10/15/21 21:03) mw Diagnosis - Repeated falls pm1 - Visual hallucinations pm1 - Contusion of other part of head pm1 - End stage renal disease pm1 Forms: - Medication Reconciliation Form pm1 - SBAR form pm1 Addendum: 10/20/2021 18:33 Co-signature as Attending Physician, Sukhi Uribe MD I agree with the assessment and c hermosillo plan of care. Signatures: Dispatcher [employer] EDMS Naheed Ibarra RN RN mw Anderson, Corey, MD MD cha Marinas, Patrick, FINANCIAL DATA ANALYST FINANCIAL DATA ANALYST pm1 Derek Crespo DO DO ms3 Kristina Hunter RN RN jh6 Corrections: (The following items were deleted from the chart) 10/15 21:03 19:43 pm1 mw
--- NOTE | 2021-10-15 20:19 | P.HP ---
Certification for Inpatient Patient admitted to: Inpatient With expected LOS: <2 Midnights Patient will require the following post-hospital care: None Practitioner: I am a practitioner with admitting privileges, knowledge of patient current condition, hospital course, and medical plan of care. Services: Services provided to patient in accordance with Admission requirements found in Title 42 Section 412.3 of the Code of Federal Regulations Patient History Date of Service: 10/15/21 Primary Care Provider: Berny Reason for admission: Recurrent Falls History of Present Illness: Patient is a 66-year-old female with past medical history of chronic kidney disease on dialysis Sunday, hypertension, hypothy roidism, type 2 diabetes insulin-dependent who presented to the ED with complaints of recurrent falls. She was in the ED yesterday after falling and hitting her head. CT was negative and she was discharged. She returned today because she had 5 more falls. She states when she is walking she feels like her legs just get weak and give out. Denies LOC. She reports occasional dizziness. She states that she also started experiencing visual hallucinations today. She thought she saw snow outside. She reports that she has never had symptoms like this before. Repeat head CT negative. Labs within normal limits except for kidney function, as expected. Vital signs stable, likely not orthostatic related. States she last had dialysis 2 days ago. Will admit patient for further evaluation management. Allergies codeine Allergy (Intermediate, Verified 09/03/20 22:00) Itching promethazine [From Phenergan] Allergy (Intermediate, Verified 09/03/20 22:00) Itching adhesive tape Adverse Reaction (Verified 09/03/20 22:00) Itching/Hives/Rash Home Medications: Aspirin [Aspirin EC 325 MG] 325 mg PO BEDTIME 11/17/19 Atorvastatin Calcium [Lipitor] 20 mg PO BEDTIME 11/17/19 Bupropion *Xl* [Wellbutrin XL*] 150 mg PO DAILY 11/17/19 Cholecalciferol (Vitamin D3) [Vitamin D3] 25 mcg PO DAILY 11/17/19 Insulin Glargine,Hum.rec.anlog [Lantus Solostar] 45 units SQ BID 11/17/19 Insulin Lispro [Humalog Kwikpen U-100] 30 units SQ TIDWM 11/17/19 Metoprolol Succinate [Toprol Xl*] 50 mg PO BID 6AM 6PM #60 tab 11/25/19 Pantoprazole [Protonix Tab*] 40 mg PO ACB #30 tab 11/25/19 Amlodipine Besylate 10 mg PO DAILY 09/03/20 Docusate Sodium [Stool Softener] 20 mg PO DAILY 09/03/20 Famotidine 40 mg PO BEDTIME 09/03/20 Furosemide 160 mg PO DAILY 09/03/20 Lisinopril [Zestril] 5 mg PO DAILY 09/03/20 Loratadine [Claritin] 10 mg PO BID 09/03/20 Multivitamin [Daily Miguelina] 1 each PO DAILY 09/03/20 Multivitamin/Iron/Folic Acid [Centrum Women Tablet] 1 each PO DAILY 09/03/20 Thyroxine 150 mg PO DAILY 09/03/20 - Past Medical/Surgical History Diabetic: Yes -: IDDM -: Hypertension -: Hypothyroidism -: Chronic kidney disease stage 4 -: hyperlipidemia -: depression -: Back fusion -: bilateral total knee replacements -: bilateral carpal tunnel sx -: c section -: thyroidectomy -: neck fusion Psychosocial/ Personal History: Patient lives at home with her - Family History Mother -: Heart disease, Hypertension, Lung disease, Cancer Notes: breast ca Father -: Heart disease, Hypertension - Social History Smoking Status: Never smoker Alcohol use: Yes CD- Drugs: Yes Caffeine use: Yes Place of Residence: Home Review of Systems Neurological: Other (dizziness, falls, hallucinations ) Physical Examination - Physical Exam General: Alert, In no apparent distress, Oriented x3 HEENT: Atraumatic, PERRLA, Mucous membr. moist/pink, EOMI, Sclerae nonicteric Neck: Supple, 2+ carotid pulse no bruit, No LAD, Without JVD or thyroid abnormality Respiratory: Clear to auscultation bilaterally, Normal air movement Cardiovascular: Regular rate/rhythm, Normal S1 S2 Gastrointestinal: Normal bowel sounds, No tenderness Musculoskeletal: No tenderness Integumentary: No rashes Neurological: Normal speech, Normal strength at 5/5 x4 extr, Normal tone, Normal affect - Studies Laboratory Data (last 24 hrs) 10/15/21 15:22: Sodium 137, Potassium 4.6, BUN 92 H, Creatinine 5.42 H*, Glucose 220 H 10/15/21 15:22: WBC 10.4 D, Hgb 9.7 L, Hct 27.8 L, Plt Count 240 Assessment and Plan - Problems (Diagnosis) (1) Recurrent falls Current Visit: Yes Status: Acute (2) Visual hallucinations Current Visit: Yes Status: Acute (3) Type 2 diabetes mellitus Current Visit: Yes Status: Acute Qualifiers: 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 ferry terminal agent use Diabetes mellitus complication status: without complication Qualified Code(s): E11.9 - Type 2 diabetes mellitus without complications; Z79.4 - medical terminologist (current) use of insulin (4) Anemia in chronic kidney disease Current Visit: Yes Status: Chronic Qualifiers: Chronic kidney disease stage: on chronic dialysis Qualified Code(s): N18.6 - End stage renal disease; D63.1 - Anemia in chronic kidney disease; Z99.2 - Dependence on renal dialysis - Plan -neurology consulted for further work-up recommendations. MRI if symptoms pe rsist? -Nephrology also consulted for ESRD and hemodialysis. Electrolytes stable at this time. Renal panel ordered -Patient's neurologic exam was benign. Denies history of stroke. Takes aspirin and atorvastatin every day. -Patient states that she has been having gallbladder pains for the past 3 months which has been affecting her sleep, could be contributing to her symptoms. -ACHS Accu-Cheks with mild sliding scale insulin -Heparin for DVT prophylaxis. Full code Discharge Plan: Home Plan to discharge in: 48 Hours - Advance Directives Does patient have a Living Will: No Does patient have a Durable POA for Healthcare: No - Code Status/Comfort Care Code Status Assessed: Yes (Full) Critical Care: No Time Spent Managing Pts Care (In Minutes): 70
[2021-10-15 20:59] LABS: SARS-COV-2 RT PCR NEGATIVE (NEGATIVE)
[2021-10-15] MEDS: INSULIN -REGULAR HUMAN 50 UNIT/0.5 ML ML SQ SCH (21:45)
[2021-10-15] MEDS ORDERED: MECLIZINE HCL 12.5 MG TAB PO PRN (21:45)
[2021-10-15 23:31] VITALS: BMI 38.7
[2021-10-15] MEDS: ZOLPIDEM TARTRATE 5 MG TABLET PO PRN (23:32)
[2021-10-16] MEDS: HEPARIN 5000 UNIT/ML 1 ML VIAL SQ SCH ×3 (01:38→16:35)
[2021-10-16] MEDS: DIAZEPAM 5 MG TABLET PO ONE ×2 (01:52→02:13)
[2021-10-16 05:25] LABS: Absolute Lymphocytes (CBC) 1.4 K/uL (0.7-4.9); Hematocrit 29.1 % (36.0-45.0); Lymphocytes % 11.6 % (15.3-44.8); MPV 7.8 fL (7.6-11.3); RBC Red Blood Cell Count 3.07 M/uL (3.86-4.86)
[2021-10-16] MEDS: ONDANSETRON 4 MG/2 ML VIAL IV PRN (05:38)
[2021-10-16 06:19] LABS: Albumin 2.9 g/dL (3.4-5.0); Bilirubin Total 0.7 mg/dL (0.2-1.0); Magnesium 2.6 mg/dL (1.8-2.4); Phosphorus 6.3 mg/dL (2.5-4.9); Potassium 4.3 mmol/L (3.5-5.1); Protein, Total 7.1 g/dL (6.4-8.2)
[2021-10-16 06:20] LABS: Thyroid Stimulating Hormone 5.7 uIU/mL (0.360-3.740)
[2021-10-16] MEDS: INSULIN -REGULAR HUMAN 50 UNIT/0.5 ML ML SQ SCH ×4 (07:30→21:00)
[2021-10-16] MEDS: ACETAMINOPHEN 500 MG TAB PO PRN (11:04)
--- NOTE | 2021-10-16 13:21 | P.PN ---
Subjective Date of Service: 10/16/21 Primary Care Provider: Berny Chief Complaint: Recurrent Falls Patient admitted for recurrent falls. She stated her legs just gives way. He denies any dizziness preceding the fall. Physical Examination - Vital Signs Temperature: 97.7 F Blood Pressure: 179/80 Pulse: 66 Respirations: 16 Pulse Ox (%): 94 - Physical Exam General: Alert, In no apparent distress, Oriented x3 HEENT: Mucous membr. moist/pink Neck: JVD not distended Respiratory: Clear to auscultation bilaterally, Normal air movement Cardiovascular: No edema, Regular rate/rhythm, Normal S1 S2, No murmurs Gastrointestinal: Normal bowel sounds, Soft and benign, Non-distended, No tenderness Musculoskeletal: No swelling, No tenderness Integumentary: No rashes, No cyanosis Neurological: Normal strength at 5/5 x4 extr, Cranial nerves 3-12 intact - Studies Laboratory Data (last 24 hrs) 10/15/21 15:22: Sodium 137, Potassium 4.6, BUN 92 H, Creatinine 5.42 H*, Glucose 220 H 10/15/21 15:22: WBC 10.4 D, Hgb 9.7 L, Hct 27.8 L, Plt Count 240 Assessment And Plan - Current Problems (Diagnosis) (1) Recurrent falls Current Visit: Yes Status: Acute (2) Type 2 diabetes mellitus Current Visit: Yes Status: Acute Qualifiers: Diabetes mellitus group home insulin use: with rat exterminator use Diabetes mellitus complication status: without complication Qualified Code(s): E11.9 - Type 2 diabetes mellitus without complications; Z79.4 - watermaster (current) use of insulin (3) Chronic kidney disease, stage 4 (severe) Current Visit: No Status: Acute - Plan Obtain MRI of the brain and spine to rule out incoordination from acute CVA. Neurology consult. Neurochecks Insulin sliding scale for glucose management Nephrology consult pending Monitor telemetry renal function.
[2021-10-16] MEDS ORDERED: EPOETIN 4,000 UNIT/ML VIAL IV SCH (13:45)
--- NOTE | 2021-10-16 13:49 | P.CNS ---
Date of Consult: 10/16/21 Reason for Consult: ESRD, fluid and electrolytes management Primary Care Provider: Berny Chief Complaint: Recurrent Falls History of Present Illness: Patient is a 66-year-old female with past medical history ESRD on dialysis Sunday via LT Ij catheter, failed AVF X3 , hypertension, hypothyroidism and type 2 diabetes insulin-dependent Pt presented to the ED with complaints of recurrent falls. Pt denied head trauma or LOC , chest pain or palpitation , no similar episodes in the past ROS General : denies fever, chills, WT change weakness, insomnia HEENT: visual hallucination Resp: denies SOB, cough or wheezes Cardiovascular: : denies chest pain, palpitation GI: denies abdominal pain, diarrhea or constipation : denies dysuria, urgency, foamy urine or blood tinged urine Muscloskeltal: have leg swelling denies muscle aches, joint pain Endo: denies polyuria and and polydipsia ROS Physical exam General: AAOx3, NAD, obese CHEST; CTAB, no wheezes or rales HEART : RRR. Normal S1,2 no murmur or rub Abd: soft, Nt Ext: pedal edema Skin : No rash A/p ESRD on HD MWF via Lt IJ catheter HD tomorrow renal dose medications renal diet Anemia of chronic disease will start epogen Metabolic bon disease will start Renvela falls head ct negative neurology consulted PT/OT Allergies codeine Allergy (Intermediate, Verified 09/03/20 22:00) Itching promethazine [From Phenergan] Allergy (Intermediate, Verified 09/03/20 22:00) Itching adhesive tape Adverse Reaction (Verified 09/03/20 22:00) Itching/Hives/Rash Home Medications: Aspirin [Aspirin EC 325 MG] 325 mg PO BEDTIME 11/17/19 Atorvastatin Calcium [Lipitor] 20 mg PO BEDTIME 11/17/19 Bupropion *Xl* [Wellbutrin XL*] 150 mg PO DAILY 11/17/19 Cholecalciferol (Vitamin D3) [Vitamin D3] 25 mcg PO DAILY 11/17/19 Insulin Glargine,Hum.rec.anlog [Lantus Solostar] 45 units SQ BID 11/17/19 Insulin Lispro [Humalog Kwikpen U-100] 30 units SQ TIDWM 11/17/19 Metoprolol Succinate [Toprol Xl*] 50 mg PO BID 6AM 6PM #60 tab 11/25/19 Pantoprazole [Protonix Tab*] 40 mg PO ACB #30 tab 11/25/19 Amlodipine Besylate 10 mg PO DAILY 09/03/20 Docusate Sodium [Stool Softener] 20 mg PO DAILY 09/03/20 Famotidine 40 mg PO BEDTIME 09/03/20 Furosemide 160 mg PO DAILY 09/03/20 Lisinopril [Zestril] 5 mg PO DAILY 09/03/20 Loratadine [Claritin] 10 mg PO BID 09/03/20 Multivitamin [Daily Miguelina] 1 each PO DAILY 09/03/20 Multivitamin/Iron/Folic Acid [Centrum Women Tablet] 1 each PO DAILY 09/03/20 Thyroxine 150 mg PO DAILY 09/03/20 - Past Medical/Surgical History Diabetic: Yes -: IDDM -: Hypertension -: Hypothyroidism -: Chronic kidney disease stage 4 -: hyperlipidemia -: depression -: Back fusion -: bilateral total knee replacements -: bilateral carpal tunnel sx -: c section -: thyroidectomy -: neck fusion Psychosocial/ Personal History: Patient lives at home with her - Family History Mother Medical History: Heart disease, Hypertension, Lung disease, Cancer Notes: breast ca Father Medical History: Heart disease, Hypertension - Social History Alcohol use: No CD- Drugs: No Caffeine use: Yes Place of Residence: Home Physical Examination Temp Pulse Resp BP Pulse Ox 97.7 F 66 16 179/80 H 94 10/16/21 13:26 10/16/21 13:26 10/16/21 13:26 10/16/21 13:26 10/16/21 13:26 Laboratory Data (last 24 hrs) 10/15/21 15:22: Sodium 137, Potassium 4.6, BUN 92 H, Creatinine 5.42 H*, Glucose 220 H 10/15/21 15:22: WBC 10.4 D, Hgb 9.7 L, Hct 27.8 L, Plt Count 240
[2021-10-16] MEDS: SEVELAMER CARBONATE 800 MG TABLET PO SCH (16:35)
[2021-10-16] MEDS: ALPRAZOLAM 0.5 MG TABLET PO PRN (22:58)
[2021-10-17] MEDS: ACETAMINOPHEN 500 MG TAB PO PRN (00:22)
[2021-10-17] MEDS: HEPARIN 5000 UNIT/ML 1 ML VIAL SQ SCH ×3 (00:23→17:39)
[2021-10-17 03:58] LABS: Absolute Lymphocytes (CBC) 1.5 K/uL (0.7-4.9); Hematocrit 28.3 % (36.0-45.0); Lymphocytes % 15.4 % (15.3-44.8); MPV 7.6 fL (7.6-11.3); RBC Red Blood Cell Count 3.05 M/uL (3.86-4.86)
[2021-10-17 04:41] LABS: Albumin 2.7 g/dL (3.4-5.0); Bilirubin Total 0.5 mg/dL (0.2-1.0); Magnesium 2.5 mg/dL (1.8-2.4); Phosphorus 6.1 mg/dL (2.5-4.9); Protein, Total 6.5 g/dL (6.4-8.2)
[2021-10-17] MEDS: INSULIN -REGULAR HUMAN 50 UNIT/0.5 ML ML SQ SCH ×4 (07:30→21:19)
--- NOTE | 2021-10-17 09:41 | EKG ---
Test Date: 2021-10-15 Test Time: 15:43:22 Seo Specialist: MB MEASUREMENT RESULTS: Intervals: Rate: 59 NJ: 168 QRSD: 92 QT: 430 QTc: 425 Citra: P: 78 NJ: 168 QRS: 75 T: -16 INTERPRETIVE STATEMENTS: Sinus bradycardia Low voltage QRS Cannot rule out Anterior infarct, age undetermined Abnormal ECG Compared to ECG 10/14/2021 19:58:07 Low QRS voltage now present Myocardial infarct finding now present Sinus rhythm no longer present T-wave abnormality no longer present Electronically Signed On 10-17-21 09:36:02 CDT by William Uribe
[2021-10-17] MEDS: SEVELAMER CARBONATE 800 MG TABLET PO SCH ×3 (10:27→17:39)
--- NOTE | 2021-10-17 12:54 | RAD REPORT ---
EXAM DESCRIPTION: MRI - Lumbar Spine Wo Con- 10/17/2021 12:37 pm CLINICAL HISTORY: back pain, b/l leg weakness Back pain, radiculopathy. COMPARISON: No comparisons FINDINGS: There is significant blooming artifact from orthopedic hardware at L4 and L5 levels. This makes assessment at these levels not possible. Disc extrusion is present at L2-3 with superior migration present. Disc extrusion of disc material is along the left paracentral location measuring 6 mm in thickness resulting in left lateral recess bola nosis. Mild narrowing of the left exit foramen is also seen at this level. Mild central disc protrusion is present as well as L5-S1 measuring 5 mm in interposed dimension. This does not significantly narrow the central canal and mildly attenuates the right lateral recess. No marrow replacing process seen. No compression fracture. IMPRESSION: There is a large amount of blooming artifact at L4 and L5 rendering assessment these lev els not possible. Large disc extrusion left paracentral location at L2-3 results in left lateral recess stenosis and mi ld left exit foraminal narrowing.
--- NOTE | 2021-10-17 13:06 | RAD REPORT ---
EXAM DESCRIPTION: MRI - Brain Wo Cont - 10/17/2021 12:37 pm CLINICAL HISTORY: Unsteady gait COMPARISON: Brain Wo Cont dated 06/18/2020; Head Brain Wo Cont dated 10/15/2021 TECHNIQUE: Sagittal T1-weighted images were obtained along with axial PD, heavily T2-weighted and T2 -FLAIR images. Axial DWI and ADC mapping sequences were also obtained along with coronal heavily T2-w eighted images. FINDINGS: Exam is degraded by motion requiring repetition of multiple sequences. No intracranial hemorrhage, mass or acute infarction. There is no edema or shift of midline structure s. No extra-axial fluid collections. Alexis-matter/white matter junction is preserved. Signal voids are seen as a normal finding in the major intracranial vessels. Volume loss is minimal. Ventricles are n ormal in size. Punctate focus of white matter signal abnormality in the left frontal lobe is not melchor rly seen in 2019. Significance is doubtful. This is probably a very minimal focus of chronic ischemic change. Thalamus, brainstem and basal ganglia tissues show no acute or suspicious signal abnormality . No globe or orbital content acute finding. No sella or supra sella abnormality. No acute mastoid air cell or paranasal sinus finding. IMPRESSION: No infarction, mass or other acute intracranial finding identifiable. Patient has minimal volume loss and absence or near complete absence of chronic ischemic change. The intracranial findings are not significantly different from 2019 comparison.
--- NOTE | 2021-10-17 13:35 | P.PN ---
Subjective Date of Service: 10/17/21 Primary Care Provider: Berny Chief Complaint: Recurrent Falls Patient admitted for recurrent falls. Patient denies any complaint today. No hallucinations. She denies any dizziness. She ambulated with physical therapy yesterday and was noted to have unsteady g ait. Physical Examination - Vital Signs Temperature: 97.1 F Blood Pressure: 189/72 Pulse: 63 Respirations: 16 Pulse Ox (%): 96 - Physical Exam General: Alert, In no apparent distress, Oriented x3 HEENT: Mucous membr. moist/pink, Sclerae nonicteric Neck: JVD not distended Respiratory: Clear to auscultation bilaterally, Normal air movement Cardiovascular: No edema, Regular rate/rhythm, Normal S1 S2 Gastrointestinal: Normal bowel sounds, Soft and benign, Non-distended, No tenderness Musculoskeletal: No swelling Integumentary: No rashes, No erythema Neurological: Normal speech, Normal strength at 5/5 x4 extr, Cranial nerves 3-12 intact Assessment And Plan - Current Problems (Diagnosis) (1) Recurrent falls Current Visit: Yes Status: Acute (2) Type 2 diabetes mellitus Current Visit: Yes Status: Acute Qualifiers: Diabetes mellitus care home insulin use: with sharepoint trainer use Diabetes mellitus complication status: without complication Qualified Code(s): E11.9 - Type 2 diabetes mellitus without complications; 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 MRI of the lumbar spine shows L2-L3 disc herniation Awaiting neurology input Patient is high risk for falls given history of recurrent falls and unsteady gait. Would recommend skilled rehab versus inpatient rehab at this time pending neurology evaluation Continue PT Insulin sliding scale for glucose management Hemodialysis per nephrology.
[2021-10-17] MEDS: ALPRAZOLAM 0.5 MG TABLET PO PRN (22:17)
[2021-10-18] MEDS: HEPARIN 5000 UNIT/ML 1 ML VIAL SQ SCH ×3 (00:25→17:00)
[2021-10-18] MEDS: ONDANSETRON 4 MG/2 ML VIAL IV PRN (00:56)
--- NOTE | 2021-10-18 01:57 | CON ---
Consultation called because of recurrent falls. History Of Present Illness: Ms. Gallego is a 66-year-old right-handed patient with diabetes mellitus; diabetic peripheral neuropathy; hypertension; chronic kidney disease, on hemodialysis , Sunday, Sunday; hypothyroidism, who has had multiple sudden unexplained falls occurring over s everal weeks. She said while walking, the legs would just give out without warning and she may hit t he deck. She denies passing out or loss of consciousness with these falls, but has had blows to the head and parts as she would fall. She denies chest pain or shortness of breath prior to the falls. No palpitations. She denies seizure-like activity. No tongue biting or loss of bowel or bladder con trol. Her head CT scan and brain MRI do not show any acute ischemic or hemorrhagic strokes. Minimal small-vessel ischemic disease identified. Her lumbar spine MRI full assessment was hampered because of a reported large amount of blooming artifact at L4-5 rendering those levels not possible to be ev aluated. At L2-3, there was a left lateral recess stenosis, mild left exit foraminal stenosis with a large disk extrusion at the L5-S1, a 5 mm central disk protrusion but not significantly narrowing th e canal and mildly attenuating the right lateral recess. As the patient's L4 level will be critical to determine if that is compromised, but I right L5 MRI. The question will go unanswered at this point. Past Medical History: As noted in addition to depression. Surgical History: She has had lumbar spinal fusion, possibly where L4-5 was identified. Also bilate ral knee replacement, bilateral carpal tunnel. She had , thyroidectomy, and cervical spinal fusion. Allergies: CODEINE, PROMETHAZINE, ADHESIVE TAPE. Medications: At home, aspirin 325 mg daily, Lipitor 20 mg at bedtime, Wellbutrin XL 150 mg daily, vi tamin D3 of 25 mcg daily, Lantus 25 units twice daily, Humalog 30 units 3 times daily with meals, Top rol-XL 50 mg twice daily, Protonix 40 mg daily, amlodipine 10 mg daily, docusate 100 mg daily, Pepcid 40 mg daily, furosemide 160 mg daily, Zestril 5 mg daily, Claritin 10 mg twice daily, multivitamin d aily, 150 mg daily. Family History: Heart disease, hypertension, lung disease, cancer in mother as well as breast cancer in mother. Father had heart disease, hypertension. Social History: She does drink alcohol but no tobacco use and no illegal drug use. She has strong c affeinated beverages. Review of Systems: She has had episodes of hallucinations, the sudden falls, and reports mild dizziness. Hallucinations are visual but nondisturbing and occurred in the hospital. Laboratory Studies: Show white blood cell count of 9.9, hemoglobin 9.9, and platelets 236. Creatini ne 5.29, glucose 149 up to 229. Sodium 134. Liver function studies are normal. Urinalysis, 5-10 wh ite blood cells, 5-10 epithelial cells. COVID-19 test was negative. Influenza A and B negative. Physical Examination: General: Ms. Gallego is resting in bed. She is actually sitting on the side of the bed. She is in n o acute distress. HEENT: She is normocephalic, atraumatic. Sclerae anicteric. Oropharynx is moist and pink. Neck: Supple. Chest: Clear. Heart: Regular. Extremities: Show no significant cyanosis, clubbing, or edema. Neurological: Alert, oriented to person, place, time, and situation. Follows commands appropriately . Cranial nerves 2 through 12 intact by exam. Motor: Upper extremities, no focal weakness. Lower e xtremities, no focal weakness. sensory exam, stocking-glove loss light touch, temperature b ilaterally. Reflexes absent in upper and lower extremities. Position sense is significantly decreas ed in the lower extremities that is for foot and toe, that is ankle position sense and toe position s ense. In terms of her gait, she was able to ambulate 30 feet 3 times with no assistive device with s tandby assistance to modified independence. She did not fall. Assessment: Ms. Gallego is a 66-year-old patient with possible lumbar 4-5 compromise but that cannot be fully assessed because of the MRI being hampered by blooming artifact. She does not have reflexes at L4 and S1. In addition, she has decreased position sense in the lower extremities, which may be due to peripheral neuropathy. She has no evidence of stroke in the brain, imaging both CT and MRI an d no focal deficits on exam. Most likely multifactorial reasons for her falling, including periphera l neuropathy and lumbar nerve root compromise. The patient is best served by using a walker at all t imes. Plan: She is told that she should ambulate with a walker at all times. Also in low light conditions , to be very careful about planning where she is going in the walker close by. She would likely bene fit from outpatient physical therapy her capacity to make pizarro decisions when ambulating. At this point, she has no evidence of stroke, but she is at risk for stroke given her risk factors a nd should be on aspirin, folic acid, and statin. Also, her comorbid conditions are addressed as appr opriate. After discharge, she may follow up in Dr. Shook's clinic 1 month later. CHRISTINE/RENÉ Voice ID: [id number] Report ID: [id number]
[2021-10-18 06:11] LABS: Hematocrit 29.6 % (36.0-45.0); MPV 7.4 fL (7.6-11.3)
[2021-10-18 06:21] LABS: Albumin 2.7 g/dL (3.4-5.0); Magnesium 2.4 mg/dL (1.8-2.4); Phosphorus 4.5 mg/dL (2.5-4.9); Potassium 3.8 mmol/L (3.5-5.1)
--- NOTE | 2021-10-18 06:58 | P.PN ---
Date of Service: 10/18/21 Subjective: Denies hallucinations since admission Physical activity improving, ambulating in room, took shower yesterday without issue Still with unsteady gait Last night with lots of belching and right upper quadrant and epigastric pain. Reports history of gallbladder issues ROS: 10 point ROS as noted above, otherwise negative Physical exam GEN: Alert, oriented, NAD HEENT: Normal conjunctiva, sclera anicteric CV: Regular rate and rhythm, no edema Pulm: Nonlabored respirations on room air ABD: Soft, nontender, nondistended Integumentary: L foot: dorsum with few superficial abrasions, surrounding erythema and slight edema, mild tenderness, no abscess/drainage Neuro: Normal speech, normal affect Problem List Recurrent falls Diabetes mellitus type 2, insulin-dependent Hypertension ESRD, on hemodialysis L2-L3 disc herniation after fall RUQ pain constipation Unclear exact etiology of why patient been having recurrent falls Neurology consulted, recommend outpatient physical therapy, patient improved physical therapy, recommends walker for now Patient states she has small apartment, and family can stay with her Son feels she needs inpatient/SNF, she would prefer home with physical therapy To be reevaluated by physical therapy later today MRI brain negative for stroke Nephrology following, continue with dialysis Left dorsum of foot, 2 3 mild superficial abrasions with surrounding erythema, start Bactrim, renally dose Patient reports history of gallbladder issues, as previously worked up for elective cholecystectomy; Dr. Walls consulted for further eval RUQ U/S ordered Last bowel movement 3 days ago, patient reports feeling constipated, did well with mag citrate in the past, requesting 1 dose Code: full Dispo: home with PT, 1-2 days pending further improvement, safe discharge; surgery eval Time Spent Managing Pts Care (In Minutes): 35
[2021-10-18] MEDS: INSULIN -REGULAR HUMAN 50 UNIT/0.5 ML ML SQ SCH ×4 (07:30→21:40)
[2021-10-18] MEDS: SEVELAMER CARBONATE 800 MG TABLET PO SCH ×3 (07:58→17:00)
[2021-10-18] MEDS ORDERED: MAGNESIUM CITRATE 300 ML BOT PO SCH (11:00)
[2021-10-18] MEDS ORDERED: SMZ./TMP. 800/160 MG TABLET PO SCH (14:00)
--- NOTE | 2021-10-18 15:30 | PN ---
Date of Progress Note: 10/18/2021 Subjective: The patient was admitted with recurrent falls, seen by Neurology. Has cervical stenosis and no stroke. Recommended for physical therapy and using a walker. The patient still complaining from abdominal pain, right upper quadrant, radiating to her back. The patient seen by Dr. Titi richardson, planned for cholecystectomy. Physical Examination: Vital Signs: Blood pressure 131/67, pulse of 67, afebrile. The patient had dialysis yesterday, tole rated very well. Chest: Clear to auscultation. Heart: S1, S2. Systolic murmur. Abdomen: Tenderness. No guarding or rebound on the right upper quadrant. Extremities: Trace edema. Neurologic: Alert. No focality. Has wobbly gait. Laboratory Data: WBC 10.8, H and H 10.4/29.6. Sodium 137, potassium 3.8, bicarb 24, BUN 61, creatin ine 4.1, calcium 8.4, phosphorus 4.5, magnesium 2.4, albumin 2.7. Corrected calcium is 9.5. Current Medications: The patient on include; 1.Bactrim. 2.Epogen. 3.Ambien. 4.Xanax. 5.Renvela 2 tablets with each meal. 6.Meclizine. 7.Zofran. Assessment And Plan: 1.End-stage renal disease. We will maintain the patient on her dialysis. The patient will be sched uled for dialysis tomorrow and we will follow up. 2.Hypertension, controlled, optimal. Continue current treatment. 3.Secondary hyperparathyroidism, stable. We will continue Renvela. 4.Anemia of chronic kidney disease. We will resume her XENIA, Retacrit. 5.Abdominal pain, diagnosis with cholelithiasis, resistant to medical treatment. We will consult Trinh salas. Hopefully, we can do the surgery as in-house. 6.Recurrent fall. Follow up with Neurology. 7.Diabetes as by primary. JOSÉ MIGUEL/RENÉ Voice ID: [id number] Report ID: [id number]
--- NOTE | 2021-10-18 18:59 | RAD REPORT ---
EXAM DESCRIPTION: US - Abdomen Exam Limited - 10/18/2021 6:48 pm CLINICAL HISTORY: RUQ, eval gallbladder/liver/CBD COMPARISON: Abdomen Pelvis Wo Contrast dated 06/25/2020 FINDINGS: No gallstones, sludge or other abnormalities within the gallbladder lumen. There is no wal l thickening or pericholecystic fluid. No common duct stone or biliary tree dilatation identified. Liver is prominent. Coarsened, increased echogenicity is seen. This is nonspecific but can be seen wi th fatty infiltration or hepatic parenchymal disease. Liver is 19 cm in maximum dimension. IMPRESSION: Normal gallbladder and biliary tree ultrasound. Liver parenchymal disease is present, probably fatty infiltration. No focal liver lesions seen on limited assessment.
[2021-10-19] MEDS: HEPARIN 5000 UNIT/ML 1 ML VIAL SQ SCH ×3 (00:55→16:33)
[2021-10-19 05:56] LABS: Hematocrit 30.1 % (36.0-45.0); MPV 7.1 fL (7.6-11.3); RBC Red Blood Cell Count 3.25 M/uL (3.86-4.86)
[2021-10-19 06:12] LABS: Albumin 2.8 g/dL (3.4-5.0); Magnesium 2.8 mg/dL (1.8-2.4); Phosphorus 4.4 mg/dL (2.5-4.9); Potassium 3.6 mmol/L (3.5-5.1)
[2021-10-19] MEDS: SEVELAMER CARBONATE 800 MG TABLET PO SCH ×3 (08:20→16:33)
[2021-10-19] MEDS: PANTOPRAZOLE 40MG TABLET PO SCH ×2 (08:20→16:33)
[2021-10-19] MEDS: INSULIN -REGULAR HUMAN 50 UNIT/0.5 ML ML SQ SCH ×4 (08:21→21:05)
[2021-10-19] MEDS: SMZ./TMP. 800/160 MG TABLET PO SCH (08:24)
[2021-10-19] MEDS: SUCRALFATE 1 GM TABLET PO SCH ×3 (14:07→20:41)
--- NOTE | 2021-10-19 14:36 | CON ---
Date of Consultation: 10/19/2021 Diagnosis: History of abdominal pain. History Of Present Illness: This is the case of a 66-year-old patient, admitted here for multiple me dical problems including history of falling, but at the same time, they found the patient to have noé e epigastric discomfort and reflux. She was seen in my office in the past, diagnosed with reflux, po ssible gallbladder disease, but she has not been able to do the workup for that. Apparently, she cam e here with the 5 episodes of falling and dizziness, but apparently medical issues have explained the reason for that. She does not remember eating anything or any traumatic event, so they only consult ed me for the history of abdominal pain. She stated the abdominal pain with nausea, sometimes of vom iting, epigastric and bilateral reflux. She is trying to control her diet, trying to lose some weigh t, but she has not been able to be successful to control the symptoms. She was advised in the past t o see her melter assistant and she may require workup for the reflux and that may include also an e ndoscopy. She has not been able to do that. At this moment, she feels better. She is tolerating di et. Past Medical History: Includes morbid obesity, diabetes, peripheral neuropathy, hypertension, chroni c kidney disease, hypothyroidism, and history of falls. Past Surgical History: Includes L4-L5 fusion, bilateral knee replacements, carpal tunnel, , hysterectomy, cervical spine fusion. Medications: Reviewed including Humalog. Family History: Includes hypertension, heart disease. Social History: She does not smoke. She does not drink alcohol. Review of Systems: Nausea, bloating occasionally. No dysuria, hematuria, hematochezia, melena. Mental status, right no w she feels good with no dizziness or no visual changes. Physical Examination: General: The patient is awake, alert. HEENT: Pupils are equal and reactive. Anicteric. Neck: Supple. Chest: Clear. Abdomen: Soft and depressible. No guarding or rebound. No peritoneal signs. No Farrell signs. Extremities: Good capillary refill. Breasts: Deferred. Rectal: Deferred. Pelvic: Deferred. Laboratory Data: WBC count 11.6, hemoglobin 10.6, potassium is 3.6 with glucose of 210 and total jarrett irubin of 0.5. Ultrasound of the gallbladder shows normal gallbladder. Biliary tree ultrasound, no focal liver lesions. Assessment: It is a 66-year-old patient, worked before due to the possibility of biliary colic and g astric reflux. We recommended the patient still be seen as an outpatient by a melter assistant. F rom our standpoint, she can also come to our office. We might have to do a HIDA scan to rule out jarrett iary dysfunction. We can advance diet. This can be done electively. I believe we have to concentra te for right now and trying to figure out the reasons of her fall. ELLIOT/RENÉ Voice ID: [id number] Report ID: [id number]
--- NOTE | 2021-10-19 15:51 | PN ---
Date of Progress Note: 10/19/2021 Subjective: The patient was admitted with fall, seen by Neurology. The patient is still complaining from right upper quadrant pain with bulging. Seen by Surgery, Dr. Walls, planned for HIDA scan a s outpatient. Physical Examination: Vital Signs: Blood pressure 124/56, pulse of 90, afebrile. Chest: Clear to auscultation. Heart: S1, S2. Systolic murmur. Abdomen: Soft, mild tenderness on the right upper quadrant. No guarding or rebound. Extremities: Trace edema. Neurologic: Alert. No focality. Laboratory Data: WBC 11.6, H and H 10.6/30.1. Sodium 137, potassium 3.6, bicarb 24, BUN 68, creatin ine 4.7, bicarb 24, calcium 8.8, phosphorus 4.4, magnesium 2.8, albumin 2.8. Current Medications: The patient on include; 1.Epogen. 2.Ambien. 3.Renvela. 4.Pantoprazole. Assessment And Plan: 1.End-stage renal disease. We will continue the patient on dialysis. 2.Hypokalemia. We will dialyze the patient on 3K bath. 3.Anemia of chronic kidney disease. We will resume XENIA. 4.Secondary hyperparathyroidism, stable. 5.Fall as by Neurology. 6.Cholelithiasis. Follow up with Surgery. CR Voice ID: [id number] Report ID: [id number]
--- NOTE | 2021-10-19 16:06 | P.PN ---
Date of Service: 10/19/21 Subjective: improving ambulating better continues with significant belching, abdominal discomfort ongoing for months, worsening ROS: 10 point ROS as noted above, otherwise negative Physical exam GEN: Alert, oriented, NAD HEENT: Normal conjunctiva, sclera anicteric CV: Regular rate and rhythm, no edema Pulm: Nonlabored respirations on room air ABD: Soft, moderate tenderness to palpation in epigastrium Integumentary: L foot: dorsum with few superficial abrasions, surrounding erythema, mild tenderness, no abscess/drainage Neuro: Normal speech, normal affect Problem List Recurrent falls Diabetes mellitus type 2, insulin-dependent Hypertension ESRD, on hemodialysis L2-L3 disc herniation after fall RUQ pain / Epigastric pain constipation Unclear exact etiology of why patient been having recurrent falls Neurology consulted, recommend outpatient physical therapy, patient improved physical therapy, recommends walker for now Patient states she has small apartment, and family can stay with her Son feels she needs inpatient/SNF, she would prefer home with physical therapy improving MRI brain negative Nephrology following, continue with dialysis Left dorsum of foot, 2 3 mild superficial abrasions with surrounding erythema, start Bactrim, renally dose on 10/18 Patient reports history of gallbladder issues, as previously worked up for elective cholecystectomy; Dr. Walls consulted, plan for outpatient HIDA RUQ U/S without stones / inflammation RUQ pain improved but more tender in epigastrium with significant belching. Last EGD was several years ago possibly reflux /ulcer. GI consulted, recommend r/o ischemic causes, CTA ordered. discussed with renal, plan for HD after CTA tomorrow add carafate Code: full Dispo: home with outpatient PT, tomorrow after CTA / dialysis tomorrow Time Spent Managing Pts Care (In Minutes): 35
[2021-10-19] MEDS: ACETAMINOPHEN 500 MG TAB PO PRN (20:40)
[2021-10-19] MEDS: ALPRAZOLAM 0.5 MG TABLET PO PRN (20:41)
[2021-10-19] MEDS: ZOLPIDEM TARTRATE 5 MG TABLET PO PRN (20:41)
[2021-10-20] MEDS ORDERED: MORPHINE 4 MG/ML SYR IV ONE (00:02)
[2021-10-20] MEDS ORDERED: MORPHINE 2 MG/ML SYR ONE (00:20)
[2021-10-20] MEDS: HEPARIN 5000 UNIT/ML 1 ML VIAL SQ SCH ×3 (01:51→17:00)
[2021-10-20 02:42] VITALS: O2SAT 96
[2021-10-20 03:48] LABS: Hematocrit 31.7 % (36.0-45.0); MPV 7.3 fL (7.6-11.3); RBC Red Blood Cell Count 3.32 M/uL (3.86-4.86)
[2021-10-20 04:05] LABS: Albumin 2.7 g/dL (3.4-5.0); Magnesium 2.6 mg/dL (1.8-2.4); Phosphorus 2.7 mg/dL (2.5-4.9); Potassium 3.6 mmol/L (3.5-5.1)
--- NOTE | 2021-10-20 06:26 | P.PN ---
Date of Service: 10/20/21 Subjective: ROS: 10 point ROS as noted above, otherwise negative Physical exam GEN: Alert, oriented, NAD HEENT: Normal conjunctiva, sclera anicteric CV: Regular rate and rhythm, no edema Pulm: Nonlabored respirations on room air ABD: Soft, moderate tenderness to palpation in epigastrium Integumentary: L foot: dorsum with few superficial abrasions, surrounding erythema, mild tenderness, no abscess/drainage Neuro: Normal speech, normal affect Problem List Recurrent falls Diabetes mellitus type 2, insulin-dependent Hypertension ESRD, on hemodialysis L2-L3 disc herniation after fall RUQ pain / Epigastric pain constipation Unclear exact etiology of why patient been having recurrent falls Neurology consulted, recommend outpatient physical therapy, patient improved physical therapy, recommends walker for now Patient states she has small apartment, and family can stay with her Son feels she needs inpatient/SNF, she would prefer home with physical therapy improving MRI brain negative Nephrology following, continue with dialysis Left dorsum of foot, 2 3 mild superficial abrasions with surrounding erythema, start Bactrim, renally dose on 10/18 Patient reports history of gallbladder issues, as previously worked up for elective cholecystectomy; Dr. Walls consulted, plan for outpatient HIDA RUQ U/S without stones / inflammation RUQ pain improved but more tender in epigastrium with significant belching. Last EGD was several years ago possibly reflux /ulcer. GI consulted, recommend r/o ischemic causes, CTA ordered. discussed with renal, plan for HD after CTA tomorrow add carafate Code: full Dispo: home with outpatient PT, tomorrow after CTA / dialysis tomorrow Time Spent Managing Pts Care (In Minutes): 35
[2021-10-20] MEDS: INSULIN -REGULAR HUMAN 50 UNIT/0.5 ML ML SQ SCH ×3 (07:30→16:30)
[2021-10-20] MEDS: SUCRALFATE 1 GM TABLET PO SCH ×3 (07:30→16:30)
[2021-10-20] MEDS: SEVELAMER CARBONATE 800 MG TABLET PO SCH ×3 (08:00→11:53)
--- NOTE | 2021-10-20 08:53 | RAD REPORT ---
EXAM DESCRIPTION: CT - Abdomen Pelvis W Contrast - 10/20/2021 8:18 am CLINICAL HISTORY: r/o ischemic cause of epigastric pain COMPARISON: No comparisonsAbdomen Exam Limited dated 10/18/2021 TECHNIQUE: Biphasic, helical CT imaging of the abdomen and pelvis was performed following 100 ml non -ionic IV contrast. Oral contrast was given. All CT scans are performed using dose optimization technique as appropriate and may include automated exposure control or mA/KV adjustment according to patient size. FINDINGS: No suspicious findings in the lung bases. The liver, spleen, and pancreas show no suspicious findings. Gallbladder and biliary tree are also wi thout suspicious finding. Gallstones can be occult on CT imaging. No gallstones seen on the October 18 ultrasound. Left kidney is much smaller than the right. Renal function is symmetric with no hydronephrosis or obs tructing calculus of either kidney. No nonobstructing calculi. No pyelonephritis or acute parenchymal process. No adrenal abnormalities. Partially filled urinary bladder shows no gross abnormality. No b ladder stones seen. Uterus and ovaries show no suspicious findings. No dilated bowel loops or bowel wall thickening. Moderate stool volume is present filling but not dis tending the right-side of the colon. Diverticulosis is mild with no acute diverticulitis findings. No appendicitis is present. No free air, free fluid or inflammatory stranding. No mass or bulky lymphadenopathy seen. A small f at only umbilical hernia is present. Vascular calcifications are present. No acute vascular findings. Disc and bone degenerative changes are present. Bone graft defect is seen in the left ilium. Fusion h ardware is present at L4-5. Significant degenerative disc disease present at L2-3 with disc space maximino rowing present at L5-S1. Acute bone process is not seen. IMPRESSION: Contrast CT abdomen and pelvis imaging shows no acute or emergent finding. Nonacute fin dings detailed in the body of the report.
[2021-10-20] MEDS: PANTOPRAZOLE 40MG TABLET PO SCH ×2 (10:30→16:30)
[2021-10-20] MEDS: SMZ./TMP. 800/160 MG TABLET PO SCH (10:30)
--- NOTE | 2021-10-20 15:20 | PN ---
Date of Progress Note: 10/20/2021 Subjective: The patient was admitted with recurrent fall. The patient had right upper quadrant pain , suspect of cholelithiasis. The patient seen by Surgery, seen by GI, recommended CT angio. CT was done. Physical Examination: Vital Signs: Blood pressure 129/61, pulse of 92, afebrile. Chest: Clear to auscultation. Heart: S1, S2. Regular. Abdomen: Soft, nontender. No guarding or rebound. Extremities: Trace edema. Neurologic: Alert, oriented x3. No focal. Laboratory Data: WBC 12.3, H and H 10.7/31.7. Sodium 136, potassium 3.6, bicarb 25, BUN 36, creatin ine 4, calcium 8.7, phosphorus 2.7, magnesium 2.6, albumin 2.7. Corrected calcium is 9.5. Current Medications: The patient on include Bactrim, Epogen, alprazolam, Ambien. Assessment And Plan: 1.End-stage renal disease. The patient had IV contrast. Still has good urine output. I am going t o arrange for dialysis today and we will follow up. 2.Hypokalemia. The patient was dialyzed on high potassium bath. We had no need for any supplement. 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 We will follow up with Neurology. 4.Abdominal pain. Follow up with GI and Surgery. CR Voice ID: [id number] Report ID: [id number]
[2021-10-20 20:46] VITALS: BP 138/67; TEMP 98
== END 2021-10-20 21:30 | disposition home or self-care (01) | DRG 551 ==
LOC: ER 15:08 → ERHOLD 20:06 → 2ND 21:54
PROVIDERS: ADMIT Internal Medicine; ATTEND Internal Medicine
PROC: 5A1D70Z Performance of Urinary Filtration, Intermittent, Less than 6 Hours Per Day (ICD-10-PCS; principal; 2021-10-17)
PROC: 5A1D70Z Performance of Urinary Filtration, Intermittent, Less than 6 Hours Per Day (ICD-10-PCS; 2021-10-19)
PROC: 5A1D70Z Performance of Urinary Filtration, Intermittent, Less than 6 Hours Per Day (ICD-10-PCS; 2021-10-20)
DX: M51.26 Other intervertebral disc displacement, lumbar region (principal); N18.6 End stage renal disease; I12.0 Hypertensive chronic kidney disease with stage 5 chronic kidney disease or end stage renal disease; N25.81 Secondary hyperparathyroidism of renal origin; S34.21XA Injury of nerve root of lumbar spine, initial encounter; E11.42 Type 2 diabetes mellitus with diabetic polyneuropathy; Z91.81 History of falling; E11.22 Type 2 diabetes mellitus with diabetic chronic kidney disease; K59.00 Constipation, unspecified; S90.812A Abrasion, left foot, initial encounter; X58.XXXA Exposure to other specified factors, initial encounter; E87.6 Hypokalemia; D63.8 Anemia in other chronic diseases classified elsewhere; K80.20 Calculus of gallbladder without cholecystitis without obstruction; E03.9 Hypothyroidism, unspecified; G58.8 Other specified mononeuropathies; R44.1 Visual hallucinations; W19.XXXA Unspecified fall, initial encounter; Y92.9 Unspecified place or not applicable; Z99.2 Dependence on renal dialysis; Z96.653 Presence of artificial knee joint, bilateral; Z20.822 Contact with and (suspected) exposure to COVID-19
CPT/HCPCS: 0240U; 36415; 70450; 70551; 71045; 72125; 72148; 74177; 76705; 80048; 80053; 80061; 80069; 81003; 81015; 82947; 83735; 84439; 84443; 85025; 85027; 90935; 93005; 97116; 97161; 97530; 99283; 99285; J1644; J1815; J2270; J2405; J8597; Q5105; Q9967

== ENCOUNTER 2022-06-11 01:17 | Inpatient (IN) | payer OTHER ==
--- OUTSIDE RECORDS SUMMARY | 2022-06-11 01:23 | XMS REPORT | Continuity of Care Document ---
:1955 Author Organization [facility] t Address [address] [place] [address] Care Team Providers Name Role Phone MAKENZIE HERNANDEZKathie Conn Primary Care Physician Unavailable Sabrina Hernandez Attending Clinician Unavailable Joaquín Myrick Attending Clinician Unavailable Alexandra Arrieta Attending Clinician Unavailable [id number] Attending Clinician Unavailable FAUSTO MORAES Attending Clinician Unavailable Jose Bo MD Attending Clinician eRji Waldrop MD Attending Clinician Ce Knutson NP Attending Clinician CARSON IVERSON Attending Clinician Unavailable Yvan BURROUGHS, Jory Nguyen Attending Clinician [phone] Corrina Cavanaugh NP Attending Clinician [phone] Doctor Unassigned, Elliott Attending Clinician Unavailable Funmi Allen MA Attending Clinician Unavailable Karen Calderón Attending Clinician Unavailable Angel Mas Attending Clinician Unavailable Farhan Michel Attending Clinician Maya Valdez MA Attending Clinician Unavailable Fausto Moraes MD Attending Clinician Pob, Adc Lab Main Attending Clinician Unavailable Only, Adc Test Attending Clinician Unavailable SUSAN WHITE Attending Clinician Unavailable MD TUSHAR REYES Attending Clinician Unavailable TUSHAR REYES Attending Clinician Unavailable Demetrio Christensen CRNA Attending Clinician Tracy Heart MD Attending Clinician BO CARTER Attending Clinician Unavailable [id number] Admitting Clinician Unavailable FAUSTO MORAES Admitting Clinician Unavailable JOSE BO Admitting Clinician Unavailable SUSAN WHITE Admitting Clinician Unavailable MD TUSHAR REYES Admitting Clinician Unavailable Fausto Moraes MD Admitting Clinician TUSHAR REYES Admitting Clinician Unavailable Payers Payer Name Policy Type Policy Number Effective Date Expiration Date Juan DUKE [id number] [employer] [id number] 2020 MCARE ADV 00:00:00 CHOICE PPO MEDICARE PART A [id number] 2020 \T\ B 00:00:00 [employer] MEDICARE 53 [id number] 2021 Common Sp rachelle 00:00:00 [facility] Problems Condition Condition Condition Status Onset Resolution Last Treating Co mments Source Name Details Category Date Date Treatment Clinician Date CKD CKD Disease Active Overview: Method i (chronic (chronic 5-10 Formattin kidney kidney 00:00: g of this Hospita disease), disease), 00 note l stage V stage V might be different from the original. Added automatic ally from request for surgery [id number] ESRD (end ESRD (end Disease Active 2019-07 Met hodi stage stage 1-05 renal renal 00:00: Hospita disease) disease) 00 l on on dialysis dialysis Carpal Carpal Problem Resolve 2021-08-25 Mem oria tunnel tunnel d 22:23:46 l syndrome syndrome Jacob n (disorder) (disorder) Resolved Problem 08/25/20211982 [facility] Problem Resolve 2021-08-25 Memoria delivery - delivery - d 22:23:46 l delivered delivered Herm joss (finding) (finding) Resolved Problem 08/25/20211984 [facility] Fistula of Fistula Problem Resolve 2021-08-25 Memoria joint of joint d 22:23:46 l (disorder) (disorder) He rmann Resolved Problem 08/25/20212018 [facility] Fistula of Fistula Problem Resolve 2021-08-25 Memoria knee joint of knee d 22:23:46 l (disorder) joint Jacob n (disorder) Resolved Problem 08/25/20212020 [facility] Septic Septic Problem Resolve 2021-08-25 Mem oria shock shock d 22:23:46 l (disorder) (disorder) He rmann Resolved Problem 08/25/2021 [facility] 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 Herm joss (disorder) (disorder) Active Problem 08/25/2021 [facility] Hyperlipid Hyperlipi Problem Active 2021-08-25 Memoria emia demia 22:23:46 l (disorder) (disorder) He rmann Active Problem 08/25/2021 [facility] Paresthesi Paresthes Problem Active 2021-08-25 Memoria a ia 22:23:46 l (finding) (finding) Herm joss Active Problem 08/25/2021 [facility] Paresthesi Paresthes Problem Active 2021-08-25 Memoria a of hand ia of hand 22:23:46 l (finding) (finding) Herm joss Active Problem 08/25/2021 [facility] Tremor Tremor Problem Active 2021-08-25 Jairo frida (finding) (finding) 22:23:46 l Active [place] Problem [facility]/20[facility] [id number] Unsteady Problem Commo n gait [facility] - [facility] Arrhythmia Arrhythmia Problem C ommon [facility] - [facility] [id number] Retinopath Problem Com mon y [facility] - [facility] [id number] Seasonal Problem Comm on allergies Spirit - [facility] [id number] PUD Problem Common (peptic Spirit ulcer - [facility] disease) [facility] [id number] Body mass Problem Com mon index Spirit [BMI] - [facility] 38.0-38.9, [facility] [id number] Diabetic Problem Comm on polyneurop Spirit athy - CHI associated St with type [facility] 2 diabetes Medica l mellitus [place] [id number] Morbid Problem Commo n 9104 (severe) Spirit obesity - [facility]I due to [facility] [id number] Type 2 Problem Common diabetes Spirit mellitus - [facility] with diabetic [facility] chronic Medical kidney Center disease Secondary Secondary Problem Com mon hyperparat hyperparat Sp rachelle hyroidism hyroidism, - C HI not [facility] classified Medica l [place] Allergic Non-season Problem Com mon rhinitis al Spirit allergic - CH[facility] rhinitis, St unspecifie [facility] d Medical chronicity Center , unspecifie d trigger Dependence Dialysis Problem Com mon on renal patient Spirit [facility] - [facility] Anxiety Anxiety Problem Common about about [facility] health health [facility] [id number] End stage Problem Comm on renal [facility] disease [facility] Hypothyroi Hypothyroi Problem C ommon dism dism [facility] Cholelithi Gall Problem Commo n asis bladder Spirit without stones - [facility] obstructio [facility] Hypertensi Hypertensi Problem C ommon on on [facility] Type II Uncontroll Problem Comm on diabetes ed type 2 Spiri t mellitus diabetes - CHI without mellitus St complicati with [facility] on insulin Medical therapy Center Mixed Mixed Problem Common hyperlipid hyperlipid Sp [facility] emia emia [facility] Gastroesop GERD Problem Commo n hageal (gastroeso Spirit reflux phageal - [facility] disease reflux St disease) [facility] Vitamin D Vitamin D Problem Com mon deficiency deficiency Sp rachelle - [facility] Allergies, Adverse Reactions, Alerts Allergy Allergy Status Severity Reaction(s) Onset Inactive Treating Comm ents Source Name Type Date Date Clinician Keerthi Cruz Active Other (See Cold Me thodi zine ty to Comments) 3-[address] adverse 00:00: and Hospita reaction 00 passing l s to out drug CODEINE DRUG Active Hallucinates Uni vers INGREDI 03-30 ity of 00:00: [place] 00 Medical Branch Codeine Propensi Active Hallucinatio 2019- U nivers ty to ns 03-30 ity of adverse 00:00: [place] reaction 00 Medical s Branch Adhesive Propensi Active Rash Method i Tape-Kendra ty to 5-12 st icones adverse 00:00: Hospita reaction 00 l s to drug Codeine Propensi Active Hallucinatio Other M ethodi ty to ns 5-12 reaction( st adverse 00:00: s): Hospita reaction 00 Anaphylax l s to is drug Opioids Propensi Active Rash 1981- Hallucina Meth deonte - ty to 6-17 tions ( st Morphine adverse 00:00: Aunts Hospita Analogue reaction 00 craw over l s s to body).Oth drug er reaction( s): Anaphylax ishalluci nations prometha prometha Active Unknown Commo n zine zine [facility] codeine codeine Active Unknown Common [facility] NO KNOWN Drug Active Univers ALLERGIE Class ity of S [facility] codeine codeine Active Memoria l [place] Phenerga Phenerga Active Memori a n n l [place] Tape Tape Active Memoria l [place] Family History Family Member Diagnosis Comments Start Date Stop Date Source Natural father Heart disease [facility] Natural father Hypertension [facility] Natural father [facility]bitis [facility]] Natural mother Diabetes [facility] Natural mother Hyperlipidemia Method [facility]3] Natural mother Hypertension [facility] mother Kidney disease Method [facility]3] Social History Social Habit Start Date Stop Date Quantity Comments Source Exposure to Not sure University of SARS-CoV-2 (event) [facility] History of Tobacco Common Spirit - Use [facility] Alcohol intake 2022-04-27 2022-04-27 Current drinker Metho dist 00:00:00 00:00:00 of [facility] (finding) Cigarettes smoked 2022-04-26 2022-04-26 [facility] per 00:00:00 00:00:00 Hospita l day) - Reported Cigarette 2022-04-26 2022-04-26 [facility] pack-years 00:00:00 00:00:00 Hospital Tobacco use and 2022-04-26 2022-04-26 Smokeless [facility] exposure 00:00:00 00:00:00 tobacco non-user Hospital Social History 2021-02-23 2021-02-23 [facility] 20:24:04 20:24:04 Alcohol Comment 2020-03-23 2020-03-23 RARELY [facility] 00:00:00 00:00:00 Hospital Sex [birth year] At [birth year] [facility] 00:00:00 00:00:00 Hospital Smoking Status Start Date Stop Date Source Unknown if ever smoked [facility] Former Smoker 2022-02-27 00:00:00 2022-02-27 00:00:00 Common S pirit - [facility] Never smoked tobacco [facility] Medications Ordered Filled Start Stop Current Ordering Indication Dosage Frequency Signature Comments Components Source Medication Medication Date Date Medication? Clinician (SIG) Name Name buPROPion 2021-07 Yes 150mg Q.5D Take 150 Met hodi SR 0-[address] (WELLBUTRIN 12:56: mouth 2 Hos tena SR) 150 MG 00 (two) l 12 hr times a tablet day. aspirin 325 2021-07 Yes 325mg QD Take 325 M ethodi MG tablet 0-[address] 12:56: mouth Hospita 00 every l evening. cholecalcif 2021-07 Yes 2000U QD Take 2,000 Methodi daryl, 0-[address] vitamin D3, 12:56: mouth Hospi ta 50 mcg 00 daily. l (2,000 unit) capsule capsule loratadine 2021-07 Yes 10mg QD Take 10 mg M ethodi (CLARITIN) 0-[address] 10 mg 12:56: daily. Hospita tablet 00 l multivit-mi 2021-07 Yes Take by Met hodi n/iron/foli 0-[address] c/lutein 12:56: Hospita (CENTRUM 00 l SILVER WOMEN ORAL) docusate 2021-07 Yes 100mg Q.5D Take 100 Meth deonte sodium 0-[address] (COLACE) 12:56: mouth 2 Hospit a 100 MG 00 (two) l capsule times a day. atorvastati 2021-07 Yes 20mg QD Take 20 mg Methodi n (LIPITOR) 0-[address] 20 mg 12:56: daily. Hospita tablet 00 Default OP l ins folic 2021-07 Yes 1{tbl} QD Take 1 Methodi acid/vit B 0-[address] complex and 12:56: mouth Hospi ta C 00 daily. l (DIALYVITE ORAL) famotidine 2021-07 40mg QD Take 40 mg Methodi (PEPCID) 10 0-19 10-[address] MG tablet 08:16: 00:00 nightly as H ospita 33 :00 needed for l heartburn. traMADoL 2021-07- [place] [id number] 50mg Q8H Take 1 Metho di (Ultram) 50 0-19 10-25 tablet (50 s t mg tablet 00:00: 04:59 mg total) Ho spita 00 :00 by mouth l every 8 (eight) hours as needed for moderate pain for up to 5 days .acute pain. famotidine 2021-07 Yes 40mg QD Take 1 Metho di (PEPCID) 40 0-02 tablet (40 st MG tablet 00:00: mg total) Hos tena 00 by mouth l nightly. lactulose Yes Q.5D Take by Metho di (CHRONULAC) 9-[address] 10 gram/15 00:00: (two) Hospit a mL solution 00 times a l day. ciprofloxac 2021- No TAKE 1 Met hodi in HCl 03-21-[address] (CIPRO) 250 00:00: 00:00 MOUTH Hosp sherman MG tablet 00 :00 TWICE l DAILY UNTIL ALL TAKEN. traMADoL 2021- No [id number] 50mg Q8H Take 1 Metho di (Ultram) 50 8-29 09-04 tablet (50 s t mg tablet 00:00: 04:59 mg total) Ho spita 00 :00 by mouth l every 8 (eight) hours as needed for moderate pain for up to 5 days .acute pain. ibuprofen Yes Methodi (ADVIL) 600 8-22 st MG tablet 00:00: Hospita 00 l amoxicillin 0 2021- No Metho di (AMOXIL) 8- 10-17 st 500 MG 00:00: 00:00 Hospita capsule 00 :00 l metOLazone Yes Methodi (ZAROXOLYN) 7-21 st 5 MG tablet 00:00: Hospit a 00 l ciprofloxac 2021- No 500mg QD Take 500 Methodi in HCl 6-06 06-[address] (CIPRO 15:13: 00:00 mouth Hospita ORAL) 12 :00 daily. For l 2 more days busPIRone Yes Methodi (BUSPAR) 5 5-20 st MG tablet 00:00: Hospita 00 l psyllium Yes 3.4g Take 3.4 g Met hodi (METAMUCIL) 3-[address] 3.4 gram 00:00: Hospita packet 00 l Adult Yes 325 mg = 1 Memori a Aspirin 325 8-18 tab, PO, l mg oral 21:06: Daily, 0 Jacob n tablet 00 Refill(s) Adult Yes 325 mg = 1 Memori a Aspirin 325 8-18 tab, PO, l mg oral 21:06: Daily, 0 Jacob n tablet 00 Refill(s) aspirin-ome No 1 tab, PO, Memoria prazole 325 8-18 Daily, 0 l mg-40 mg 20:29: Refill(s) Herm joss oral 00 delayed release tablet Centrum Yes PO, Daily, Jairo frida Silver 8-18 0 l Ultra 20:29: Refill(s) [place] Women's Claritin Yes 10 mg = 1 Jairo frida 8-18 tab, PO, l 20:29: Daily, PRN Lewis 00 Itching / rash / allergy symptoms, # 20 tab, 0 Refill(s) Stool Yes PO, Memoria Softener 8-18 Bedtime, 0 l with 20:29: Refill(s) [place] Laxative 00 aspirin-ome No 1 tab, PO, Memoria prazole 325 8-18 Daily, 0 l mg-40 mg 20:29: Refill(s) Herm joss oral 00 delayed release tablet Centrum Yes PO, Daily, Jairo frida Silver 8-18 0 l Ultra 20:29: Refill(s) [place] Women's Claritin Yes 10 mg = 1 Jairo frida 8-18 tab, PO, l 20:29: Daily, PRN [place] 00 Itching / rash / allergy symptoms, # 20 tab, 0 Refill(s) Stool Yes PO, Memoria Softener 8-18 Bedtime, 0 l with 20:29: Refill(s) [place] Laxative cephalexin Yes 500 mg = 1 M emoria 500 mg oral 8-18 cap, PO, l capsule 20:28: QID, # 20 Macey nn 00 cap, 0 Refill(s) furosemide Yes 80 mg = 1 Me moria 80 mg oral 8-18 tab, PO, l tablet 20:28: Daily, # Lewis 00 90 tab, 0 Refill(s) Insulin Yes 1 unit, Memoria Lispro 100 8-18 SUB-Q, 0 l UNT/ML 20:28: Refill(s) Jacob n Injectable 00 Solution [Humalog] cephalexin Yes 500 mg = 1 M emoria 500 mg oral 8-18 cap, PO, l capsule 20:28: QID, # 20 Macey nn 00 cap, 0 Refill(s) furosemide Yes 80 mg = 1 Me moria 80 mg oral 8-18 tab, PO, l tablet 20:28: Daily, # Lewis 00 90 tab, 0 Refill(s) Insulin Yes 1 unit, Memoria Lispro 100 8-18 SUB-Q, 0 l UNT/ML 20:28: Refill(s) Jacob n Injectable 00 Solution [Humalog] levothyroxi Yes 150 Memori a ne 150 mcg 8-18 microgram l (0.15 mg) 20:27: = 1 tab, Herm joss oral tablet 00 PO, Daily, # 30 tab, 0 Refill(s) lisinopril Yes 5 mg = 1 Mem oria 5 mg oral 8-18 tab, PO, l tablet 20:27: Daily, # Lewis 00 90 tab, 1 Refill(s) Metoprolol Yes 25 mg = 1 Me moria Succinate 8-18 tab, PO, l ER 25 mg 20:27: Daily, # Macey nn oral 00 90 tab, 0 tablet, Refill(s) extended release tramadol Yes 50 mg = 1 Jairo frida hydrochlori 8-18 tab, PO, l de 50 MG 20:27: BID, # 30 Herm joss Oral Tablet 00 tab, 0 Refill(s) levothyroxi Yes 150 Memori a ne 150 mcg 8-18 microgram l (0.15 mg) 20:27: = 1 tab, Herm joss oral tablet 00 PO, Daily, # 30 tab, 0 Refill(s) lisinopril Yes 5 mg = 1 Mem oria 5 mg oral 8-18 tab, PO, l tablet 20:27: Daily, # Lewis 00 90 tab, 1 Refill(s) Metoprolol Yes 25 mg = 1 Me moria Succinate 8-18 tab, PO, l ER 25 mg 20:27: Daily, # Macey nn oral 00 90 tab, 0 tablet, Refill(s) extended release tramadol Yes 50 mg = 1 Jairo frida hydrochlori 8-18 tab, PO, l de 50 MG 20:27: BID, # 30 Herm joss Oral Tablet 00 tab, 0 Refill(s) 3 ML Yes 10 unit, Memoria Insulin 8-18 SUB-Q, l Glargine 20:26: Daily, # 3 Her [place] 100 UNT/ML 00 mL, 0 Prefilled Refill(s) Syringe [Lantus] 3 ML Yes 10 unit, Memoria Insulin 8-18 SUB-Q, l Glargine 20:26: Daily, # 3 Her [place] 100 UNT/ML 00 mL, 0 Prefilled Refill(s) Syringe [Lantus] tetracaine Yes PRN, Univers (PONTOCAINE 10-14 Starting ity of ) 0.5 % 17:31: [place] ophthalmic 00 at 1231, Medic al drops Until Branch Discontinu ed, Routine, Intra-op water for Yes PRN, Univers irrigation 10-14 Starting ity o f irrigation 17:29: [place] 10[place]14/20 [place] solution 00 at 1229, Medical Until Branch Discontinu ed, Routine, Intra-op NaCl 0.9% Yes PRN, Univers (NS) 4 Starting ity of injection 17:28: [place] 00 [place] 1228, Medical Until Branch Discontinu ed, Routine, Intra-op neomycin-po Yes PRN, Univer s lymyxin-dex 10-14 Starting ity of amethasone 17:28: [place] 10/14/20 [place] (MAXITROL) 00 at 1228, Medic al 3.5 Until Branch mg/g-10,000 Discontinu unit/g-0.1 ed, % Routine, ophthalmic Intra-op ointment gentamicin Yes PRN, Univers injection 08 Starting ity of 17:28: [place] 10/14/20 [place] 00 at 1228, Medical Until Branch Discontinu ed, VIOLETTA, Intra-op eye block 0 Yes PRN, Univers syringe 11 10-14 Starting ity o f mL 17:27: K[place]le 10/14/20 [place] 00 at 1227, Medical Until Branch Discontinu ed, Intra-op EPINEPHrine Yes PRN, Univer s (PF) 10-14 Starting ity of 1:1,000 (1 17:26: Krystle [...] Intra-op dexamethaso Yes PRN, Univer s ne 08 Starting ity of (DECADRON 17:26: [place]14/[place] PHOSPHATE) 00 at 1226, Medic al injection Until Branch Discontinu ed, Routine, Intra-op ceFAZolin Yes PRN, Univers (ANCEF) 10-14 Starting ity of injection 17:25: [place] 10/14/[place] 00 at 1225, Medical Until Branch Discontinu ed, VIOLETTA, Intra-op balanced 0 Yes PRN, Univers salt soln 10-14 Starting ity of no.2 irrig. 17:25: [place] 10/14/20 [place] (BSS) 00 at 1225, Medical ophthalmic Until Branch solution Discontinu ed, Routine, Intra-op insulin 0 Yes 30U inject 30 Unive rs lispro 4-08 Units ity of (HUMALOG 14:34: [place] the [place] 02 skin 3 Medical KWIKPEN (three) Branch U-100) 100 times unit/mL daily. inph Insulin Yes 45U inject 45 Unive rs Glargine 4-08 Units ity of (LANTUS 14:34: under the [place] SOLOSTAR 02 skin 2 Medical U-100 (two) Branch INSULIN) times 100 unit/mL daily. (3 mL) injection amLODIPine Yes 10mg Take 10 mg U nivers 10 mg 4-08 by mouth ity of tablet 14:34: daily. [place] Medical Branch buPROPion Yes 150mg Take 150 Uni vers SR 150 mg 4-08 mg by ity of SR tablet 14:34: mouth [place] 02 daily. Medical Branch furosemide Yes 160mg Take 160 Un hellen 80 mg 4-08 mg by ity of tablet 14:34: mouth [place] 02 daily. Medical Branch lisinopriL Yes 5mg Take 5 mg Un hellen 5 mg tablet 4-08 by mouth ity of 14:34: daily. [place] Medical Branch metoprolol Yes 50mg Take 50 mg U nivers succinate 4-08 by mouth 2 ity of XL 50 mg 24 14:34: (two) [place] hr tablet 02 times Medical daily. Branch pantoprazol Yes 40mg Take 40 mg Univers e 40 mg EC 4-08 by mouth ity o f tablet 14:34: daily. [place] Medical Branch Levothyroxi Yes 150ug Take 150 U nivers ne 100 mcg 4-08 mcg by ity of capsule 14:34: mouth [place] 02 daily. Medical Branch aspirin 325 Yes 325mg Take 325 U nivers mg tablet 4-08 mg by ity of 14:34: mouth [place] 02 daily. Medical Branch Cholecalcif Yes Take by Uni vers daryl, 4-08 mouth. ity of Vitamin D3, 14:34: [place] (VITAMIN Medical D3) 25 mcg Branch (1,000 unit) capsule folic Yes Take by Univers acid/multiv 4-08 mouth ity of it-min/lute 14:34: daily. Jonelle aleman in (CENTRUM 02 Medical SILVER Branch ORAL) mydriatic 2020- No .5mL 0.5 mL, Univ ers #5 4-08 04-08 Right Eye, ity of ophthalmic 12:45: 12:48 ONCE, 1 [place] as solution 00 :00 dose, Krystle Medica l 0.5 mL 10/14/20 at Branch syringe 0745, Routine, DSU Pre-op lactated 2020- No 1000mL at 42 Unive rs ringers IV 10-14 04-08 mL/hr, ity of infusion 12:45: 13:20 1,000 mL, [place] as 1,000 mL 00 :00 IV Medical Infusion, Branch ONCE, 1 dose, Krystle 10/14/20 at 0745, Routine, DSU Pre-op insulin Yes 30U inject 30 Unive rs lispro 4-08 Units ity of (HUMALOG 09:34: under the [facility] [place] [place] DESTIN 02 skin 3 Medical KWIKPEN (three) Branch U-100) 100 times unit/mL daily. inph Insulin Yes 45U inject 45 Unive rs Glargine 4-08 Units ity of (LANTUS 09:34: under the [place] SOLOSTAR 02 skin 2 Medical U-100 (two) Branch INSULIN) times 100 unit/mL daily. (3 mL) injection amLODIPine Yes 10mg Take 10 mg U nivers 10 mg 4-08 by mouth ity of tablet 09:34: daily. [place] [address] Medical Branch buPROPion Yes 150mg Take 150 Uni vers SR 150 mg 4-08 mg by ity of SR tablet 09:34: mouth [place] 02 daily. Medical Branch furosemide Yes 160mg Take 160 Un hellen 80 mg 4-08 mg by ity of tablet 09:34: mouth [place] 02 daily. Medical Branch lisinopriL Yes 5mg Take 5 mg Un hellen 5 mg tablet 4-08 by mouth ity of 09:34: daily. [place] [address] Medical Branch metoprolol Yes 50mg Take 50 mg U nivers succinate 4-08 by mouth 2 ity of XL 50 mg 24 09:34: (two) [place] hr tablet 02 times Medical daily. Branch pantoprazol Yes 40mg Take 40 mg Univers e 40 mg EC 4-08 by mouth ity o f tablet 09:34: daily. [place] [address] Medical Branch Levothyroxi Yes 150ug Take 150 U nivers ne 100 mcg 4-08 mcg by ity of capsule 09:34: mouth [place] 02 daily. Medical Branch aspirin 325 Yes 325mg Take 325 U nivers mg tablet 4-08 mg by ity of 09:34: mouth [place] 02 daily. Medical Branch Cholecalcif Yes Take by Uni vers daryl, 4-08 mouth. ity of Vitamin D3, 09:34: [place] (VITAMIN 02 [facility] D3) 25 mcg Branch (1,000 unit) capsule folic Yes Take by Univers acid/multiv 4-08 mouth ity of it-min/lute 09:34: [place]. [place] in (CENTRUM 02 Medical SILVER Branch ORAL) insulin 2019- Yes 30U [id number] Inject 30 Methodi lispro 1-[id number] (HumaLOG 00:00: 3D under the Hosp sherman U-100 00 skin 3 l Insulin) (three) 100 unit/mL times a injection day before meals. insulin 2019-0 Yes 30U inject 30 Unive rs lispro 9-24 Units ity of (HUMALOG 16:37: under the [facility] s DESTIN 58 skin 3 Medical KWIKPEN (three) Branch U-100) 100 times unit/mL daily. inph Insulin 2019-0 Yes 45U inject 45 Unive rs Glargine 9-24 Units ity of (LANTUS 16:37: under the [place] SOLOSTAR 58 skin 2 Medical U-100 (two) Branch INSULIN) times 100 unit/mL daily. (3 mL) injection amLODIPine 2019-0 Yes 10mg Take 10 mg U nivers 10 mg 9-24 by mouth ity of tablet 16:37: daily. [address] Branch buPROPion 2019-0 Yes 150mg Take 150 Uni vers SR 150 mg 9-24 mg by ity of SR tablet 16:37: mouth [place] [address] daily. Medical Branch furosemide 2019-0 Yes 160mg Take 160 Un hellen 80 mg 9-24 mg by ity of tablet 16:37: mouth [place] 58 daily. Medical Branch lisinopriL 2019-0 Yes 5mg Take 5 mg Un hellen 10 mg 9-24 by mouth ity of tablet 16:37: daily. [address] Branch metoprolol 2019-0 Yes 50mg Take 50 mg U nivers succinate 9-24 by mouth 2 ity of XL 50 mg 24 16:37: (two) [place] hr tablet 58 times Medical daily. Branch pantoprazol 2020-0 Yes 40mg Take 40 mg Univers e 40 mg EC 9-24 by mouth ity o f tablet 16:37: daily. [place] [address] Medical Branch Levothyroxi 2020-0 Yes 150ug Take 150 U nivers ne 100 mcg 9-24 mcg by ity of capsule 16:37: mouth [place] 58 daily. Medical Branch aspirin 325 2020-0 Yes 325mg Take 325 U nivers mg tablet 9-24 mg by ity of 16:37: mouth [place] 58 daily. Medical Branch Cholecalcif 2020-0 Yes Take by Uni vers daryl, 9-24 mouth. ity of Vitamin D3, 16:37: [place] (VITAMIN [address] [place] [address] D3) 25 mcg [place] (1,000 unit) capsule folic 2020-0 Yes Take by Univers acid/multiv 9-24 mouth ity of it-min/lute 16:37: daily. [place] in (CENTRUM 58 Medical SILVER Branch ORAL) insulin 2020-0 Yes 30U inject 30 Unive rs lispro 9-24 Units ity of (HUMALOG 16:37: under the [facility] [place] DESTIN 58 skin 3 Medical KWIKPEN (three) Branch U-100) 100 times unit/mL daily. inph Insulin 2020-0 Yes 45U inject 45 Unive rs Glargine 9-24 Units ity of (LANTUS 16:37: under the [place] SOLOSTAR 58 skin 2 Medical U-100 (two) Branch INSULIN) times 100 unit/mL daily. (3 mL) injection amLODIPine 2020-0 Yes 10mg Take 10 mg U nivers 10 mg 9-24 by mouth ity of tablet 16:37: daily. [place] [address] Medical Branch buPROPion 2020-0 Yes 150mg Take [...] by mouth ity of tablet 16:37: daily. [place] [address] Medical Branch metoprolol 2020-0 Yes 50mg Take 50 mg U nivers succinate 9-24 by mouth 2 ity of XL 50 mg 24 16:37: (two) [place] hr tablet 58 times Medical daily. Branch pantoprazol 2020-0 Yes 40mg Take 40 mg Univers e 40 mg EC 9-24 by mouth ity o f tablet 16:37: daily. [place] [address] Medical Branch Levothyroxi 2020-0 Yes 150ug Take 150 U nivers ne 100 mcg 9-24 mcg by ity of capsule 16:37: mouth [place] 58 daily. Medical Branch aspirin 325 2020-0 Yes 325mg Take 325 U nivers mg tablet 9-24 mg by ity of 16:37: mouth [place] 58 daily. Medical Branch Cholecalcif 2020-0 Yes Take by Uni vers daryl, 9-24 mouth. ity of Vitamin D3, 16:37: [place] (VITAMIN [address] [place] [address] D3) 25 mcg Branch (1,000 unit) capsule folic 2020-0 Yes Take by Univers acid/multiv 9-24 mouth ity of it-min/lute 16:37: [place] (CENTRUM 58 Medical SILVER Branch ORAL) insulin 2020-0 Yes 30U inject 30 Unive rs lispro 9-24 Units ity of (HUMALOG 16:37: under the [facility] s DESTIN 58 skin 3 Medical KWIKPEN (three) Branch U-100) 100 times unit/mL daily. inph Insulin 2020-0 Yes 45U inject 45 Unive rs Glargine 9-24 Units ity of (LANTUS 16:37: under the [place] SOLOSTAR 58 skin 2 Medical U-100 (two) Branch INSULIN) times 100 unit/mL daily. (3 mL) injection amLODIPine 2020-0 Yes 10mg Take 10 mg U nivers 10 mg 9-24 by mouth ity of tablet 16:37: daily. [place] [address] Medical Branch buPROPion 2020-0 Yes 150mg Take [...] by mouth ity of tablet 16:37: daily. [place] [address] Medical Branch metoprolol 2020-0 Yes 50mg Take 50 mg U nivers succinate 9-24 by mouth 2 ity of XL 50 mg 24 16:37: (two) [place] hr tablet 58 times Medical daily. Branch pantoprazol 2020-0 Yes 40mg Take 40 mg Univers e 40 mg EC 9-24 by mouth ity o f tablet 16:37: daily. [place] [address] Medical Branch Levothyroxi 2020-0 Yes 150ug Take 150 U nivers ne 100 mcg 9-24 mcg by ity of capsule 16:37: mouth [place] 58 daily. Medical Branch aspirin 325 2020-0 Yes 325mg Take 325 U nivers mg tablet 9-24 mg by ity of 16:37: mouth [place] 58 daily. Medical Branch Cholecalcif 2020-0 Yes Take by Uni vers daryl, 9-24 mouth. ity of Vitamin D3, 16:37: [place] (VITAMIN [address] [place] [address] D3) 25 mcg Branch (1,000 unit) capsule folic 2020-0 Yes Take by Univers acid/multiv 9-24 mouth ity of it-min/lute 16:37: [place] (CENTRUM 58 Medical SILVER Branch ORAL) insulin 2020-0 Yes 30U inject 30 Unive rs lispro 9-24 Units ity of (HUMALOG 16:37: under the [facility] s DESTIN 58 skin 3 Medical KWIKPEN (three) Branch U-100) 100 times unit/mL daily. inph Insulin 2020-0 Yes 45U inject 45 Unive rs Glargine 9-24 Units ity of (LANTUS 16:37: under the [place] SOLOSTAR 58 skin 2 Medical U-100 (two) Branch INSULIN) times 100 unit/mL daily. (3 mL) injection amLODIPine 2020-0 Yes 10mg Take 10 mg U nivers 10 mg 9-24 by mouth ity of tablet 16:37: daily. [place] [address] Medical Branch buPROPion 2020-0 Yes 150mg Take [...] by mouth ity of tablet 16:37: daily. [place] [address] Medical Branch metoprolol 2020-0 Yes 50mg Take 50 mg U nivers succinate 9-24 by mouth 2 ity of XL 50 mg 24 16:37: (two) [place] hr tablet 58 times Medical daily. Branch pantoprazol 2020-0 Yes 40mg Take 40 mg Univers e 40 mg EC 9-24 by mouth ity o f tablet 16:37: daily. [place] [address] Medical Branch Levothyroxi 2020-0 Yes 150ug Take 150 U nivers ne 100 mcg 9-24 mcg by ity of capsule 16:37: mouth [place] 58 daily. Medical Branch aspirin 325 2020-0 Yes 325mg Take 325 U nivers mg tablet 9-24 mg by ity of 16:37: mouth [place] 58 daily. Medical Branch Cholecalcif 2020-0 Yes Take by Uni vers daryl, 9-24 mouth. ity of Vitamin D3, 16:37: [place] (VITAMIN [address] [place] [address] D3) 25 mcg Branch (1,000 unit) capsule folic 2020-0 Yes Take by Univers acid/multiv 9-24 mouth ity of it-min/lute 16:37: [place]. [place] (CENTRUM 58 Medical SILVER Branch ORAL) insulin 2020-0 Yes 30U inject 30 Unive rs lispro 9-24 Units ity of (HUMALOG 13:50: under the [facility] [place], [place] DESTIN 18 skin 3 Medical KWIKPEN (three) Branch U-100) 100 times unit/mL daily. inph Insulin 2020-0 Yes 45U inject 45 Unive rs Glargine 9-24 Units ity of (LANTUS 13:50: under the [place] SOLOSTAR 18 skin 2 Medical U-100 (two) Branch INSULIN) times 100 unit/mL daily. (3 mL) injection amLODIPine 2020-0 Yes 10mg Take 10 mg U nivers 10 mg 9-24 by mouth ity of tablet 13:50: daily. [place] [address] Medical Branch buPROPion 2020-0 Yes 150mg Take [...] by mouth ity of tablet 13:50: daily. [place] [address] Medical Branch metoprolol 2020-0 Yes 50mg Take 50 mg U nivers succinate 9-24 by mouth 2 ity of XL 50 mg 24 13:50: (two) [place] hr tablet 18 times Medical daily. Branch pantoprazol 2020-0 Yes 40mg Take 40 mg Univers e 40 mg EC 9-24 by mouth ity o f tablet 13:50: daily. [place] [address] Medical Branch Levothyroxi 2020-0 Yes 150ug Take 150 U nivers ne 100 mcg 9-24 mcg by ity of capsule 13:50: mouth [place] 18 daily. Medical Branch aspirin 325 2020-0 Yes 325mg Take 325 U nivers mg tablet 9-24 mg by ity of 13:50: mouth [place] 18 daily. Medical Branch Cholecalcif 2020-0 Yes Take by Uni vers daryl, 9-24 mouth. ity of Vitamin D3, 13:50: [place] (VITAMIN [address] [place] [address] D3) 25 mcg Branch (1,000 unit) capsule folic 2020-0 Yes Take by Univers acid/multiv 9-24 mouth ity of it-min/lute 13:50: [place]. [place] (CENTRUM 18 Medical SILVER Branch ORAL) insulin 2020-0 Yes 30U inject 30 Unive rs lispro 9-24 Units ity of (HUMALOG 13:50: under the [facility] [place] [place] DESTIN 18 skin 3 Medical KWIKPEN (three) Branch U-100) 100 times unit/mL daily. inph Insulin 2020-0 Yes 45U inject 45 Unive rs Glargine 9-24 Units ity of (LANTUS 13:50: under the [place] SOLOSTAR 18 skin 2 Medical U-100 (two) Branch INSULIN) times 100 unit/mL daily. (3 mL) injection amLODIPine 2020-0 Yes 10mg Take 10 mg U nivers 10 mg 9-24 by mouth ity of tablet 13:50: daily. [place] [address] Medical Branch buPROPion 2020-0 Yes 150mg Take [...] by mouth ity of tablet 13:50: daily. [place] [address] Medical Branch metoprolol 2020-0 Yes 50mg Take 50 mg U nivers succinate -24 by mouth 2 ity of XL 50 mg 24 13:50: (two) [place] hr tablet 18 times Medical daily. Branch pantoprazol 2020-0 Yes 40mg Take 40 mg Univers e 40 mg EC -24 by mouth ity o f tablet 13:50: daily. [place] [address] Medical Branch Levothyroxi 2020-0 Yes 150ug Take 150 U nivers ne 100 mcg 9-24 mcg by ity of capsule 13:50: mouth [place] 18 daily. Medical Branch aspirin 325 2020-0 Yes 325mg Take 325 U nivers mg tablet 9-24 mg by ity of 13:50: mouth [place] 18 daily. Medical Branch Cholecalcif 2020-0 Yes Take by Uni vers daryl, - mouth. ity of Vitamin D3, 13:50: [place] (VITAMIN [address] [place] [address] D3) 25 mcg [place] (1,000 unit) capsule folic 2020-0 Yes Take [...] IV 2020-0 2020- No Intravenou Univers infusion 04-01-24 s, ONCE ity of 13:04: 13:33 INTRA [place] 00 :17 PROCEDURE, Medical Starting Branch [place] 04/01/20 at 0804, Until [place] 04/01/20 at 0833, Routine, Intra-op propofoL IV 2020-0 2020- No Intravenou Univers infusion 04-01 09-24 s, ONCE ity of 13:04: 13:33 INTRA [place] 00 :17 PROCEDURE, Medical Starting Branch [place] 04/01/20 at 0804, Until [place] 04/01/20 at 0833, Routine, Intra-op lidocaine 2020-0 2020- No ONCE INTRA U nivers 1% 04-0124 PROCEDURE, ity of (XYLOCAINE) 13:02: 13:33 Starting [place] 100 mg/10 00 :17 [place] Medical mL (1 %) 04/01/20 at Branc h injection 0802, Until [place] 04/01/20 at 0833, Routine, Intra-op remifentani 2020-0 2020- No Intravenou Univers L (ULTIVA) 04-0124 s, ONCE ity o f injection 13:02: 13:33 INTRA [place] 00 :17 PROCEDURE, Medical Starting Branch [place] 04/01/20 at 0802, Until [place] 04/01/20 at 0833, Routine, Intra-op lidocaine 2020-0 2020- No ONCE INTRA U nivers 1% 04-01 PROCEDURE, ity of (XYLOCAINE) 13:02: 13:33 Starting [place] 100 mg/10 00 :17 [place] Medical mL (1 %) 04/01/20 at Branc h injection 0802, Until [place] 04/01/20 at 0833, Routine, Intra-op remifentani 2020-0 2020- No Intravenou Univers L (ULTIVA) 04-01 s, ONCE ity o f injection 13:02: 13:33 INTRA [place] 00 :17 PROCEDURE, Medical Starting Branch [facility] 04/01/20 at 0802, Until [place] 04/01/20 at 0833, Routine, Intra-op lactated 2020-0 2020- No IV Univers ringers IV 04-01 Infusion, ity of infusion 13:01: 13:33 CONTINUOUS [place] 00 :17 PRN, Medical Starting Branch [facility] 04/01/20 at 0801, Until [place] 04/01/20 at 0833, Routine, Intra-op lactated 2020-0 2020- No IV Univers ringers IV 04-01 Infusion, ity of infusion 13:01: 13:33 [place]UOUS [place] 00 :17 PRN, Medical Starting Branch [facility] 04/01/20 at 0801, Until [place] 04/01/20 at 0833, Routine, Intra-op tetracaine 2020-0 Yes PRN, Univers (PONTOCAINE 04-01 Starting ity of ) 0.5 % 12:53: [place] ophthalmic 00 04/01/20 at Med ical drops 0753, Branch Until Discontinu ed, Routine, Intra-op water for 2020-0 Yes PRN, Univers irrigation 04-01 Starting ity o f irrigation 12:53: [place] solution 04/01/20 at Medic al 0753, [place] Until Discontinu ed, Routine, Intra-op NaCl 0.9% 2020-0 Yes PRN, Univers (NS) 04-01 Starting ity of injection 12:52: [place] 04/01/[address] Until Discontinu ed, Routine, Intra-op neomycin-po 2020-0 Yes PRN, Univer s lymyxin-dex 04-01 Starting ity of amethasone 12:52: [place] (MAXITROL) 04/01/20 at [facility] ical 3.5 [facility], [place] mg/g-10,000 Until unit/g-0.1 Discontinu % ed, ophthalmic Routine, ointment Intra-op gentamicin 2020-0 Yes PRN, Univers injection 04-01 Starting ity of 12:52: [place] 04/01/[address] Until Discontinu ed, VIOLETTA, Intra-op eye block 2020-0 Yes PRN, Univers syringe 11 04-01 Starting ity o f mL 12:51: [place] 04/01/[address] Until Discontinu ed, Intra-op EPINEPHrine 2020-0 Yes PRN, Univer s (PF) 04-01 Starting ity of 1:1,000 (1 12:51: [place] mg/mL) 04/01/20 at [facility] (ADRENALIN 0751, [place] (PF)) Until injection Discontinu ed, Routine, Intra-op DUOVISC 2020-0 Yes PRN, Univers (DUOVISC 04-01 Starting ity of VISCO 12:51: [place] ELASTIC) 3 04/01/20 at [facility] ical %-4 %(0.5 0751, [place] mL) 1 % Until (0.55 mL) Discontinu intraocular ed, injection Routine, Intra-op dexamethaso 2020-0 Yes PRN, Univer s ne 04-01 Starting ity of (DECADRON 12:50: [place] PHOSPHATE) 04/01/20 at [facility] ical injection 0750, [place] Until Discontinu ed, Routine, Intra-op ceFAZolin 2020-0 Yes PRN, Univers (ANCEF) 04-01 Starting ity of injection 12:50: [place] 00 04/01/20 at [facility] 0750, [place] Until Discontinu ed, VIOLETTA, Intra-op balanced 2020-0 Yes PRN, [facility] 04-01 Starting ity of no.2 irrig. 12:49: [place] (BSS) 00 04/01/20 at [facility] ophthalmic 0749, [place] solution Until Discontinu ed, Routine, Intra-op lactated 2020-0 2020- No 1000mL at [facility] 04-01 mL/hr, ity of infusion 12:00: 12:17 1,000 mL, [place] 1,000 mL 00 :00 IV Medical Infusion, [place] ONCE, 1 dose, [place] 04/01/20 at 0700, Routine, DSU Pre-op mydriatic 2020-0 2020- No .5mL 0.5 mL, [facility] ers #5 04-01 Left Eye, ity of ophthalmic 12:00: 12:16 ONCE, 1 [place] solution 00 :00 dose, [place] Medica l 0.5 mL 04/01/20 at [place] syringe 0700, Routine Lantus 2020-0 Yes 45U Q.5D Inject 45 Method i Solostar 9-[address] U-100 00:00: under the Hospita Insulin 100 00 skin 2 l unit/mL (two) injection times a (pen) day. metoprolol 2020-0 Yes 50mg Q.5D Take 50 mg M ethodi succinate 03-[address] XL 00:00: (two) Hospita (TOPROL-XL) 00 times a l 25 mg 24 hr day. tablet pantoprazol 2020-0 Yes 40mg QD Take 40 mg Methodi e 8-[address] (PROTONIX) 00:00: daily. Hospi ta 40 MG EC 00 l tablet levothyroxi 2020-0 Yes 150ug QD Take 150 M ethodi ne 8-[address] (SYNTHROID) 00:00: mouth Hospi ta 150 mcg 00 daily. l tablet amLODIPine 2020-0 Yes 10mg QD Take 10 mg M ethodi (NORVASC) 8-[address] 10 mg 00:00: daily. Hospita tablet 00 l lisinopriL 2020-0 Yes 5mg QD Take 5 mg [facility] (PRINIVIL) 7-[address] 5 mg tablet 00:00: daily. [facility] 00 l furosemide 2020-0 Yes 160mg QD Take 160 [facility] (LASIX) 80 7-[address] mg tablet 00:00: mouth Hospita 00 every l morning. Metoprolol Metoprolol No 1{capsu QD Metoprolol Succinate Succinate le} Succinate 50 MG 50 MG 50 MG Atorvastati Atorvastati No 1{table QD Atorvastat n Calcium n Calcium t} in Calcium 40 MG 40 MG 40 MG Aspirin 325 Aspirin 325 No 1{table QD Aspirin MG MG t} 325 MG Furosemide Furosemide No 1{table QD Furosemide 80 MG 80 MG t} 80 MG Lisinopril Lisinopril No 1{table QD Lisinopril 5 MG 5 MG t} 5 MG Docusate Docusate No 1{capsu QD Docusate Sodium 50 Sodium 50 le_as_n Sodium 50 MG MG eeded} MG amLODIPine amLODIPine No 1{table QD amLODIPine Besylate 10 Besylate 10 t} Besylate MG MG 10 MG buPROPion buPROPion No 1{table QD buPROPion HCl ER (SR) HCl ER (SR) t_in_th HCl ER 150 MG 150 MG e_morni (SR) 150 ng} MG Centrum Centrum No [facility] Women Women Women Ondansetron Ondansetron No 1{table QD Ondansetro 4 MG 4 MG t_on_ n 4 MG e_tongu e_and_a llow_to _dissol ve} Bactrim Bactrim No 1{table QD Bactrim 400-80 MG 400-80 MG t} 400-80 MG Loratadine Loratadine No 1{table QD Loratadine 10 MG 10 MG t} 10 MG Insulin Insulin No Insulin Lispro 100 Lispro 100 Lispro 100 UNIT/ML UNIT/ML UNIT/ML Cholecalcif Cholecalcif No 1{capsu QD Cholecalci daryl 50 MCG daryl 50 MCG le} ferol 50 (1999 UT) (1999 UT) MCG (1999) Sucralfate Sucralfate No 1{table BID Sucralfate 1 GM 1 GM t_on_an 1 GM _empty_ stomach } Pantoprazol Pantoprazol No 1{table QD Pantoprazo e Sodium 40 e Sodium 40 t} le Sodium MG MG 40 MG Insulin Insulin No Insulin Glargine Glargine Glargine 100 UNIT/ML 100 UNIT/ML 100 UNIT/ML Metoprolol Metoprolol No 1{capsu QD Metoprolol Succinate Succinate le} Succinate 50 MG 50 MG 50 MG Atorvastati Atorvastati No 1{table QD Atorvastat n Calcium n Calcium t} in Calcium 40 MG 40 MG 40 MG Aspirin 325 Aspirin 325 No 1{table QD Aspirin MG MG t} 325 MG Furosemide Furosemide No 1{table QD Furosemide 80 MG 80 MG t} 80 MG Lisinopril Lisinopril No 1{table QD Lisinopril 5 MG 5 MG t} 5 MG Docusate Docusate No 1{capsu QD Docusate Sodium 50 Sodium 50 le_as_n Sodium 50 MG MG eeded} MG amLODIPine amLODIPine No 1{table QD amLODIPine Besylate 10 Besylate 10 t} Besylate MG MG 10 MG buPROPion buPROPion No 1{table QD buPROPion HCl ER (SR) HCl ER (SR) t_in_ HCl ER 150 MG 150 MG e_morni (SR) 150 ng} MG Centrum Centrum No Centrum Women Women Women Ondansetron Ondansetron No 1{table QD Ondansetro 4 MG 4 MG t_ n 4 MG e_tongu e_and_a llow_to _dissol ve} Bactrim Bactrim No 1{table QD Bactrim 400-80 MG 400-80 MG t} 400-80 MG Loratadine Loratadine No 1{table QD Loratadine 10 MG 10 MG t} 10 MG Insulin Insulin No Insulin Lispro 100 Lispro 100 Lispro 100 UNIT/ML UNIT/ML UNIT/ML Cholecalcif Cholecalcif No 1{capsu QD Cholecalci daryl 50 MCG daryl 50 MCG le} ferol 50 (1999) (1999) MCG (1999) Sucralfate Sucralfate No 1{table BID Sucralfate 1 GM 1 GM t_on_an 1 GM _empty_ stomach } Lisinopril Lisinopril No 1{table QD Lisinopril 5 MG 5 MG t} 5 MG Centrum Centrum No [facility]rum Women Women Women Sucralfate Sucralfate No 1{table BID Sucralfate 1 GM 1 GM t_on_an 1 GM _empty_ stomach } Aspirin 325 Aspirin 325 No 1{table QD Aspirin MG MG t} 325 MG Ondansetron Ondansetron No 1{table QD Ondansetro 4 MG 4 MG t_on_th n 4 MG e_tongu e_and_a llow_to _dissol ve} Docusate Docusate No 1{capsu QD Docusate Sodium 50 Sodium 50 le_as_n Sodium 50 MG MG eeded} MG Cholecalcif Cholecalcif No 1{capsu QD Cholecalci daryl 50 MCG daryl 50 MCG le} ferol 50 (1999) (1999) MCG (1999) Levothyroxi Levothyroxi No QD Levothyrox ne Sodium ne Sodium ine Sodium 150 MCG 150 MCG 150 MCG Pantoprazol Pantoprazol No 1{table QD Pantoprazo e Sodium 40 e Sodium 40 t} le Sodium MG MG 40 MG Metoprolol Metoprolol No 1{capsu QD Metoprolol Succinate Succinate le} Succinate 50 MG 50 MG 50 MG Insulin Insulin No Insulin Glargine Glargine Glargine 100 UNIT/ML 100 UNIT/ML 100 UNIT/ML Atorvastati Atorvastati No 1{table QD Atorvastat n Calcium n Calcium t} in Calcium 40 MG 40 MG 40 MG buPROPion buPROPion No 1{table QD buPROPion HCl ER (SR) HCl ER (SR) t_in_th HCl ER 150 MG 150 MG e_morni (SR) 150 ng} MG amLODIPine amLODIPine No 1{table QD amLODIPine Besylate 10 Besylate 10 t} Besylate MG MG 10 MG Loratadine Loratadine No 1{table QD Loratadine 10 MG 10 MG t} 10 MG Insulin Insulin No Insulin Lispro 100 Lispro 100 Lispro 100 UNIT/ML UNIT/ML UNIT/ML Bactrim Bactrim No 1{table QD Bactrim 400-80 MG 400-80 MG t} 400-80 MG Furosemide Furosemide No 1{table QD Furosemide 80 MG 80 MG t} 80 MG Lisinopril Lisinopril No 1{table QD Lisinopril 5 MG 5 MG t} 5 MG Centrum Centrum No [facility] Women Women Women Sucralfate Sucralfate No 1{table BID Sucralfate 1 GM 1 GM t_on_an 1 GM _empty_ stomach } Aspirin 325 Aspirin 325 No 1{table QD Aspirin MG MG t} 325 MG Ondansetron Ondansetron No 1{table QD Ondansetro 4 MG 4 MG t_on_th n 4 MG e_tongu e_and_a llow_to _dissol ve} Docusate Docusate No 1{capsu QD Docusate Sodium 50 Sodium 50 le_as_n Sodium 50 MG MG eeded} MG Cholecalcif Cholecalcif No 1{capsu QD Cholecalci daryl 50 MCG daryl 50 MCG le} ferol 50 (1999) (1999) MCG (1999) Levothyroxi Levothyroxi No QD Levothyrox ne Sodium ne Sodium ine Sodium 150 MCG 150 MCG 150 MCG Pantoprazol Pantoprazol No 1{table QD Pantoprazo e Sodium 40 e Sodium 40 t} le Sodium MG MG 40 MG Metoprolol Metoprolol No 1{capsu QD Metoprolol Succinate Succinate le} Succinate 50 MG 50 MG 50 MG Insulin Insulin No Insulin Glargine Glargine Glargine 100 UNIT/ML 100 UNIT/ML 100 UNIT/ML Atorvastati Atorvastati No 1{table QD Atorvastat n Calcium n Calcium t} in Calcium 40 MG 40 MG 40 MG buPROPion buPROPion No 1{table QD buPROPion HCl ER (SR) HCl ER (SR) t_in_th HCl ER 150 MG 150 MG e_morni (SR) 150 ng} MG amLODIPine amLODIPine No 1{table QD amLODIPine Besylate 10 Besylate 10 t} Besylate MG MG 10 MG Loratadine Loratadine No 1{table QD Loratadine 10 MG 10 MG t} 10 MG Insulin Insulin No Insulin Lispro 100 Lispro 100 Lispro 100 UNIT/ML UNIT/ML UNIT/ML Bactrim Bactrim No 1{table QD Bactrim 400-80 MG 400-80 MG t} 400-80 MG Furosemide Furosemide No 1{table QD Furosemide 80 MG 80 MG t} 80 MG Lisinopril Lisinopril No 1{table QD Lisinopril 5 MG 5 MG t} 5 MG Centrum Centrum No [facility] Women Women Women Sucralfate Sucralfate No 1{table BID Sucralfate 1 GM 1 GM t_on_an 1 GM _empty_ stomach } Aspirin 325 Aspirin 325 No 1{table QD Aspirin MG MG t} 325 MG Ondansetron Ondansetron No 1{table QD Ondansetro 4 MG 4 MG t_on_th n 4 MG e_tongu e_and_a llow_to _dissol ve} Docusate Docusate No 1{capsu QD Docusate Sodium 50 Sodium 50 le_as_n Sodium 50 MG MG eeded} MG Cholecalcif Cholecalcif No 1{capsu QD Cholecalci daryl 50 MCG daryl 50 MCG le} ferol 50 (1999) (1999) MCG (1999) Levothyroxi Levothyroxi No QD Levothyrox ne Sodium ne Sodium ine Sodium 150 MCG 150 MCG 150 MCG Pantoprazol Pantoprazol No 1{table QD Pantoprazo e Sodium 40 e Sodium 40 t} le Sodium MG MG 40 MG Metoprolol Metoprolol No 1{capsu QD Metoprolol Succinate Succinate le} Succinate 50 MG 50 MG 50 MG Insulin Insulin No Insulin Glargine Glargine Glargine 100 UNIT/ML 100 UNIT/ML 100 UNIT/ML Atorvastati Atorvastati No 1{table QD Atorvastat n Calcium n Calcium t} in Calcium 40 MG 40 MG 40 MG buPROPion buPROPion No 1{table QD buPROPion HCl ER (SR) HCl ER (SR) t_in_th HCl ER 150 MG 150 MG e_morni (SR) 150 ng} MG amLODIPine amLODIPine No 1{table QD amLODIPine Besylate 10 Besylate 10 t} Besylate MG MG 10 MG Loratadine Loratadine No 1{table QD Loratadine 10 MG 10 MG t} 10 MG Insulin Insulin No Insulin Lispro 100 Lispro 100 Lispro 100 UNIT/ML UNIT/ML UNIT/ML Bactrim Bactrim No 1{table QD Bactrim 400-80 MG 400-80 MG t} 400-80 MG Furosemide Furosemide No 1{table QD Furosemide 80 MG 80 MG t} 80 MG Lisinopril Lisinopril No 1{table QD Lisinopril 5 MG 5 MG t} 5 MG Centrum Centrum No [facility] Women Women Women Sucralfate Sucralfate No 1{table BID Sucralfate 1 GM 1 GM t_on_an 1 GM _empty_ stomach } Aspirin 325 Aspirin 325 No 1{table QD Aspirin MG MG t} 325 MG Ondansetron Ondansetron No 1{table QD Ondansetro 4 MG 4 MG t_on_th n 4 MG e_tongu e_and_a llow_to _dissol ve} Docusate Docusate No 1{capsu QD Docusate Sodium 50 Sodium 50 le_as_n Sodium 50 MG MG eeded} MG Cholecalcif Cholecalcif No 1{capsu QD Cholecalci daryl 50 MCG daryl 50 MCG le} ferol 50 (1999) (1999) MCG (1999) Levothyroxi Levothyroxi No QD Levothyrox ne Sodium ne Sodium ine Sodium 150 MCG 150 MCG 150 MCG Pantoprazol Pantoprazol No 1{table QD Pantoprazo e Sodium 40 e Sodium 40 t} le Sodium MG MG 40 MG Metoprolol Metoprolol No 1{capsu QD Metoprolol Succinate Succinate le} Succinate 50 MG 50 MG 50 MG Insulin Insulin No Insulin Glargine Glargine Glargine 100 UNIT/ML 100 UNIT/ML 100 UNIT/ML Atorvastati Atorvastati No 1{table QD Atorvastat n Calcium n Calcium t} in Calcium 40 MG 40 MG 40 MG buPROPion buPROPion No 1{table QD buPROPion HCl ER (SR) HCl ER (SR) t_in_th HCl ER 150 MG 150 MG e_morni (SR) 150 ng} MG amLODIPine amLODIPine No 1{table QD amLODIPine Besylate 10 Besylate 10 t} Besylate MG MG 10 MG Loratadine Loratadine No 1{table QD Loratadine 10 MG 10 MG t} 10 MG Insulin Insulin No Insulin Lispro 100 Lispro 100 Lispro 100 UNIT/ML UNIT/ML UNIT/ML Bactrim Bactrim No 1{table QD Bactrim 400-80 MG 400-80 MG t} 400-80 MG Furosemide Furosemide No 1{table QD Furosemide 80 MG 80 MG t} 80 MG Lisinopril Lisinopril No 1{table QD Lisinopril 5 MG 5 MG t} 5 MG Centrum Centrum No [facility] Women Women Sucralfate Sucralfate No 1{table BID Sucralfate 1 GM 1 GM t_on_an 1 GM _empty_ stomach } Aspirin 325 Aspirin 325 No 1{table QD Aspirin MG MG t} 325 MG Ondansetron Ondansetron No 1{table QD Ondansetro 4 MG 4 MG t_on_th n 4 MG e_tongu e_and_a llow_to _dissol ve} Docusate Docusate No 1{capsu QD Docusate Sodium 50 Sodium 50 le_as_n Sodium 50 MG MG eeded} MG Cholecalcif Cholecalcif No 1{capsu QD Cholecalci daryl 50 MCG daryl 50 MCG le} ferol 50 (1999) (1999) MCG (1999) Levothyroxi Levothyroxi No QD Levothyrox ne Sodium ne Sodium ine Sodium 150 MCG 150 MCG 150 MCG Pantoprazol Pantoprazol No 1{table QD Pantoprazo e Sodium 40 e Sodium 40 t} le Sodium MG MG 40 MG Metoprolol Metoprolol No 1{capsu QD Metoprolol Succinate Succinate le} Succinate 50 MG 50 MG 50 MG Insulin Insulin No Insulin Glargine Glargine Glargine 100 UNIT/ML 100 UNIT/ML 100 UNIT/ML Atorvastati Atorvastati No 1{table QD Atorvastat n Calcium n Calcium t} in Calcium 40 MG 40 MG 40 MG buPROPion buPROPion No 1{table QD buPROPion HCl ER (SR) HCl ER (SR) t_in_ HCl ER 150 MG 150 MG e_morni (SR) 150 ng} MG amLODIPine amLODIPine No 1{table QD amLODIPine Besylate 10 Besylate 10 t} Besylate MG MG 10 MG Loratadine Loratadine No 1{table QD Loratadine 10 MG 10 MG t} 10 MG Insulin Insulin No Insulin Lispro 100 Lispro 100 Lispro 100 UNIT/ML UNIT/ML UNIT/ML Bactrim Bactrim No 1{table QD Bactrim 400-80 MG 400-80 MG t} 400-80 MG Furosemide Furosemide No 1{table QD Furosemide 80 MG 80 MG t} 80 MG Lisinopril Lisinopril No 1{table QD Lisinopril 5 MG 5 MG t} 5 MG Centrum Centrum No Centrum Women Women Women Sucralfate Sucralfate No 1{table BID Sucralfate 1 GM 1 GM t_on_an 1 GM _empty_ stomach } Aspirin 325 Aspirin 325 No 1{table QD Aspirin MG MG t} 325 MG Ondansetron Ondansetron No 1{table QD Ondansetro 4 MG 4 MG t_on_ n 4 MG e_tongu e_and_a llow_to _dissol ve} Docusate Docusate No 1{capsu QD Docusate Sodium 50 Sodium 50 le_as_n Sodium 50 MG MG eeded} MG Cholecalcif Cholecalcif No 1{capsu QD Cholecalci daryl 50 MCG daryl 50 MCG le} ferol 50 (1999) (1999) MCG (1999) Levothyroxi Levothyroxi No QD Levothyrox ne Sodium ne Sodium ine Sodium 150 MCG 150 MCG 150 MCG Pantoprazol Pantoprazol No 1{table QD Pantoprazo e Sodium 40 e Sodium 40 t} le Sodium MG MG 40 MG Metoprolol Metoprolol No 1{capsu QD Metoprolol Succinate Succinate le} Succinate 50 MG 50 MG 50 MG Insulin Insulin No Insulin Glargine Glargine Glargine 100 UNIT/ML 100 UNIT/ML 100 UNIT/ML Atorvastati Atorvastati No 1{table QD Atorvastat n Calcium n Calcium t} in Calcium 40 MG 40 MG 40 MG buPROPion buPROPion No 1{table QD buPROPion HCl ER (SR) HCl ER (SR) t_in_ HCl ER 150 MG 150 MG e_morni (SR) 150 ng} MG amLODIPine amLODIPine No 1{table QD amLODIPine Besylate 10 Besylate 10 t} Besylate MG MG 10 MG Loratadine Loratadine No 1{table QD Loratadine 10 MG 10 MG t} 10 MG Insulin Insulin No Insulin Lispro 100 Lispro 100 Lispro 100 UNIT/ML UNIT/ML UNIT/ML Bactrim Bactrim No 1{table QD Bactrim 400-80 MG 400-80 MG t} 400-80 MG Furosemide Furosemide No 1{table QD Furosemide 80 MG 80 MG t} 80 MG [facility] No [facility] Women Women Women Furosemide Furosemide No 1{table QD Furosemide 80 MG 80 MG t} 80 MG Sucralfate Sucralfate No 1{table BID Sucralfate 1 GM 1 GM t_on_an 1 GM _empty_ stomach } amLODIPine amLODIPine No 1{table QD amLODIPine Besylate 10 Besylate 10 t} Besylate MG MG 10 MG Ondansetron Ondansetron No 1{table QD Ondansetro 4 MG 4 MG t_on_th n 4 MG e_tongu e_and_a llow_to _dissol ve} Pantoprazol Pantoprazol No 1{table QD Pantoprazo e Sodium 40 e Sodium 40 t} le Sodium MG MG 40 MG Insulin Insulin No Insulin Lispro 100 Lispro 100 Lispro 100 UNIT/ML UNIT/ML UNIT/ML Metoprolol Metoprolol No 1{capsu QD Metoprolol Succinate Succinate le} Succinate 50 MG 50 MG 50 MG Levothyroxi Levothyroxi No QD Levothyrox ne Sodium ne Sodium ine Sodium 150 MCG 150 MCG 150 MCG Insulin Insulin No Insulin Glargine Glargine Glargine 100 UNIT/ML 100 UNIT/ML 100 UNIT/ML Aspirin 325 Aspirin 325 No 1{table QD Aspirin MG MG t} 325 MG Cholecalcif Cholecalcif No 1{capsu QD Cholecalci daryl 50 MCG daryl 50 MCG le} ferol 50 (1999) (1999) MCG (1999) buPROPion buPROPion No 1{table QD buPROPion HCl ER (SR) HCl ER (SR) t_in_th HCl ER 150 MG 150 MG e_morni (SR) 150 ng} MG Bactrim Bactrim No 1{table QD Bactrim 400-80 MG 400-80 MG t} 400-80 MG Loratadine Loratadine No 1{table QD Loratadine 10 MG 10 MG t} 10 MG Lisinopril Lisinopril No 1{table QD Lisinopril 5 MG 5 MG t} 5 MG Docusate Docusate No 1{capsu QD Docusate Sodium 50 Sodium 50 le_as_n Sodium 50 MG MG eeded} MG Atorvastati Atorvastati No 1{table QD Atorvastat n Calcium n Calcium t} in Calcium 40 MG 40 MG 40 MG Atorvastati Atorvastati No 1{table QD Atorvastat n Calcium n Calcium t} in Calcium 40 MG 40 MG 40 MG Cholecalcif Cholecalcif No 1{capsu QD Cholecalci daryl 50 MCG daryl 50 MCG le} ferol 50 (1999) (1999) MCG (1999) Metoprolol Metoprolol No Metoprolol Succinate Succinate Succinate ER 50 MG ER 50 MG ER 50 MG Insulin Insulin No Insulin Lispro 100 Lispro 100 Lispro 100 UNIT/ML UNIT/ML UNIT/ML Metoprolol Metoprolol No 1{capsu QD Metoprolol Succinate Succinate le} Succinate 50 MG 50 MG 50 MG Ondansetron Ondansetron No 1{table QD Ondansetro 4 MG 4 MG t_on_ n 4 MG e_tongu e_and_a llow_to _dissol ve} Famotidine Famotidine No Famotidine 40 MG 40 MG 40 MG Loratadine Loratadine No 1{table QD Loratadine 10 MG 10 MG t} 10 MG Sucralfate Sucralfate No 1{table BID Sucralfate 1 GM 1 GM t_on_ 1 GM _empty_ stomach } buPROPion buPROPion No 1{table QD buPROPion HCl ER (SR) HCl ER (SR) t_in_ HCl ER 150 MG 150 MG e_morni (SR) 150 ng} MG Furosemide Furosemide No 1{table QD Furosemide 80 MG 80 MG t} 80 MG Aspirin 325 Aspirin 325 No 1{table QD Aspirin MG MG t} 325 MG [facility] No [facility] Women amLODIPine amLODIPine No 1{table QD amLODIPine Besylate 10 Besylate 10 t} Besylate MG MG 10 MG Docusate Docusate No 1{capsu QD Docusate Sodium 50 Sodium 50 le_as_n Sodium 50 MG MG eeded} MG Lisinopril Lisinopril No 1{table QD Lisinopril 5 MG 5 MG t} 5 MG Bactrim Bactrim No 1{table QD Bactrim 400-80 MG 400-80 MG t} 400-80 MG Pantoprazol Pantoprazol No 1{table QD Pantoprazo e Sodium 40 e Sodium 40 t} le Sodium MG MG 40 MG Insulin Insulin No Insulin Glargine Glargine Glargine 100 UNIT/ML 100 UNIT/ML 100 UNIT/ML Levothyroxi Levothyroxi No QD Levothyrox ne Sodium ne Sodium ine Sodium 150 MCG 150 MCG 150 MCG Atorvastati Atorvastati No 1{table QD Atorvastat n Calcium n Calcium t} in Calcium 40 MG 40 MG 40 MG Metoprolol Metoprolol No Metoprolol Succinate Succinate Succinate ER 50 MG ER 50 MG ER 50 MG amLODIPine amLODIPine No 1{table QD amLODIPine Besylate 10 Besylate 10 t} Besylate MG MG 10 MG Loratadine Loratadine No 1{table QD Loratadine 10 MG 10 MG t} 10 MG Famotidine Famotidine No Famotidine 40 MG 40 MG 40 MG Pantoprazol Pantoprazol No 1{table QD Pantoprazo e Sodium 40 e Sodium 40 t} le Sodium MG MG 40 MG Bactrim Bactrim No 1{table QD Bactrim 400-80 MG 400-80 MG t} 400-80 MG buPROPion buPROPion No 1{table QD buPROPion HCl ER (SR) HCl ER (SR) t_in_ HCl ER 150 MG 150 MG e_morni (SR) 150 ng} MG Centrum Centrum No [facility] Women Ondansetron Ondansetron No 1{table QD Ondansetro 4 MG 4 MG t_ n 4 MG e_tongu e_and_a llow_to _dissol ve} Insulin Insulin No Insulin Glargine Glargine Glargine 100 UNIT/ML 100 UNIT/ML 100 UNIT/ML Insulin Insulin No Insulin Lispro 100 Lispro 100 Lispro 100 UNIT/ML UNIT/ML UNIT/ML Docusate Docusate No 1{capsu QD Docusate Sodium 50 Sodium 50 le_as_n Sodium 50 MG MG eeded} MG Metoprolol Metoprolol No 1{capsu QD Metoprolol Succinate Succinate le} Succinate 50 MG 50 MG 50 MG Aspirin 325 Aspirin 325 No 1{table QD Aspirin MG MG t} 325 MG Furosemide Furosemide No 1{table QD Furosemide 80 MG 80 MG t} 80 MG Cholecalcif Cholecalcif No 1{capsu QD Cholecalci daryl 50 MCG daryl 50 MCG le} ferol 50 (1999) (1999) MCG (1999) Sucralfate Sucralfate No 1{table BID Sucralfate 1 GM 1 GM t_on_an 1 GM _empty_ stomach } Levothyroxi Levothyroxi No QD Levothyrox ne Sodium ne Sodium ine Sodium 150 MCG 150 MCG 150 MCG Lisinopril Lisinopril No 1{table QD Lisinopril 5 MG 5 MG t} 5 MG Atorvastati Atorvastati No 1{table QD Atorvastat n Calcium n Calcium t} in Calcium 40 MG 40 MG 40 MG Metoprolol Metoprolol No Metoprolol Succinate Succinate Succinate ER 50 MG ER 50 MG ER 50 MG amLODIPine amLODIPine No 1{table QD amLODIPine Besylate 10 Besylate 10 t} Besylate MG MG 10 MG Loratadine Loratadine No 1{table QD Loratadine 10 MG 10 MG t} 10 MG Famotidine Famotidine No Famotidine 40 MG 40 MG 40 MG Pantoprazol Pantoprazol No 1{table QD Pantoprazo e Sodium 40 e Sodium 40 t} le Sodium MG MG 40 MG Bactrim Bactrim No 1{table QD Bactrim 400-80 MG 400-80 MG t} 400-80 MG buPROPion buPROPion No 1{table QD buPROPion HCl ER (SR) HCl ER (SR) t_in_th HCl ER 150 MG 150 MG e_morni (SR) 150 ng} MG Centrum Cent[facility] No [facility] Women Ondansetron Ondansetron No 1{table QD Ondansetro 4 MG 4 MG t_on_th n 4 MG e_tongu e_and_a llow_to _dissol ve} Insulin Insulin No Insulin Glargine Glargine Glargine 100 UNIT/ML 100 UNIT/ML 100 UNIT/ML Insulin Insulin No Insulin Lispro 100 Lispro 100 Lispro 100 UNIT/ML UNIT/ML UNIT/ML Docusate Docusate No 1{capsu QD Docusate Sodium 50 Sodium 50 le_as_n Sodium 50 MG MG eeded} MG Metoprolol Metoprolol No 1{capsu QD Metoprolol Succinate Succinate le} Succinate 50 MG 50 MG 50 MG Aspirin 325 Aspirin 325 No 1{table QD Aspirin MG MG t} 325 MG Furosemide Furosemide No 1{table QD Furosemide 80 MG 80 MG t} 80 MG Cholecalcif Cholecalcif No 1{capsu QD Cholecalci daryl 50 MCG daryl 50 MCG le} ferol 50 (1999) (1999) MCG (1999) Sucralfate Sucralfate No 1{table BID Sucralfate 1 GM 1 GM t_on_an 1 GM _empty_ stomach } Levothyroxi Levothyroxi No QD Levothyrox ne Sodium ne Sodium ine Sodium 150 MCG 150 MCG 150 MCG Lisinopril Lisinopril No 1{table QD Lisinopril 5 MG 5 MG t} 5 MG Insulin Insulin No Insulin Glargine Glargine Glargine 100 UNIT/ML 100 UNIT/ML 100 UNIT/ML buPROPion buPROPion No 1{table QD buPROPion HCl ER (SR) HCl ER (SR) t_in_th HCl ER 150 MG 150 MG e_morni (SR) 150 ng} MG Cholecalcif Cholecalcif No 1{capsu QD Cholecalci daryl 50 MCG daryl 50 MCG le} ferol 50 (1999) (1999) MCG (1999) Pantoprazol Pantoprazol No 1{table QD Pantoprazo e Sodium 40 e Sodium 40 t} le Sodium MG MG 40 MG amLODIPine amLODIPine No 1{table QD amLODIPine Besylate 10 Besylate 10 t} Besylate MG MG 10 MG Atorvastati Atorvastati No 1{table QD Atorvastat n Calcium n Calcium t} in Calcium 40 MG 40 MG 40 MG Lisinopril Lisinopril No 1{table QD Lisinopril 5 MG 5 MG t} 5 MG Levothyroxi Levothyroxi No QD Levothyrox ne Sodium ne Sodium ine Sodium 150 MCG 150 MCG 150 MCG Insulin Insulin No Insulin Lispro 100 Lispro 100 Lispro 100 UNIT/ML UNIT/ML UNIT/ML Loratadine Loratadine No 1{table QD Loratadine 10 MG 10 MG t} 10 MG Furosemide Furosemide No 1{table QD Furosemide 80 MG 80 MG t} 80 MG Insulin Insulin No Insulin Glargine Glargine Glargine 100 UNIT/ML 100 UNIT/ML 100 UNIT/ML buPROPion buPROPion No 1{table QD buPROPion HCl ER (SR) HCl ER (SR) t_in_th HCl ER 150 MG 150 MG e_morni (SR) 150 ng} MG Cholecalcif Cholecalcif No 1{capsu QD Cholecalci daryl 50 MCG daryl 50 MCG le} ferol 50 (1999) (1999) MCG (1999) Pantoprazol Pantoprazol No 1{table QD Pantoprazo e Sodium 40 e Sodium 40 t} le Sodium MG MG 40 MG amLODIPine amLODIPine No 1{table QD amLODIPine Besylate 10 Besylate 10 t} Besylate MG MG 10 MG Atorvastati Atorvastati No 1{table QD Atorvastat n Calcium n Calcium t} in Calcium 40 MG 40 MG 40 MG Lisinopril Lisinopril No 1{table QD Lisinopril 5 MG 5 MG t} 5 MG Levothyroxi Levothyroxi No QD Levothyrox ne Sodium ne Sodium ine Sodium 150 MCG 150 MCG 150 MCG Insulin Insulin No Insulin Lispro 100 Lispro 100 Lispro 100 UNIT/ML UNIT/ML UNIT/ML Loratadine Loratadine No 1{table QD Loratadine 10 MG 10 MG t} 10 MG Furosemide Furosemide No 1{table QD Furosemide 80 MG 80 MG t} 80 MG Insulin Insulin No Insulin Glargine Glargine Glargine 100 UNIT/ML 100 UNIT/ML 100 UNIT/ML buPROPion buPROPion No 1{table QD buPROPion HCl ER (SR) HCl ER (SR) t_in_ HCl ER 150 MG 150 MG e_morni (SR) 150 ng} MG Cholecalcif Cholecalcif No 1{capsu QD Cholecalci daryl 50 MCG daryl 50 MCG le} ferol 50 (1999) (1999) MCG (1999) Pantoprazol Pantoprazol No 1{table QD Pantoprazo e Sodium 40 e Sodium 40 t} le Sodium MG MG 40 MG amLODIPine amLODIPine No 1{table QD amLODIPine Besylate 10 Besylate 10 t} Besylate MG MG 10 MG Atorvastati Atorvastati No 1{table QD Atorvastat n Calcium n Calcium t} in Calcium 40 MG 40 MG 40 MG Lisinopril Lisinopril No 1{table QD Lisinopril 5 MG 5 MG t} 5 MG Levothyroxi Levothyroxi No QD Levothyrox ne Sodium ne Sodium ine Sodium 150 MCG 150 MCG 150 MCG Insulin Insulin No Insulin Lispro 100 Lispro 100 Lispro 100 UNIT/ML UNIT/ML UNIT/ML Loratadine Loratadine No 1{table QD Loratadine 10 MG 10 MG t} 10 MG Furosemide Furosemide No 1{table QD Furosemide 80 MG 80 MG t} 80 MG Insulin Insulin No Insulin Glargine Glargine Glargine 100 UNIT/ML 100 UNIT/ML 100 UNIT/ML Levothyroxi Levothyroxi No Levothyrox ne Sodium ne Sodium ine Sodium 150 MCG 150 MCG 150 MCG Cholecalcif Cholecalcif No 1{capsu QD Cholecalci daryl 50 MCG daryl 50 MCG le} ferol 50 (1999) (1999) MCG (1999) Pantoprazol Pantoprazol No 1{table QD Pantoprazo e Sodium 40 e Sodium 40 t} le Sodium MG MG 40 MG Furosemide Furosemide No 1{table QD Furosemide 80 MG 80 MG t} 80 MG amLODIPine amLODIPine No 1{table QD amLODIPine Besylate 10 Besylate 10 t} Besylate MG MG 10 MG Atorvastati Atorvastati No Atorvastat n Calcium n Calcium in Calcium 40 MG 40 MG 40 MG Lisinopril Lisinopril No Lisinopril 5 MG 5 MG 5 MG Insulin Insulin No Insulin Lispro 100 Lispro 100 Lispro 100 UNIT/ML UNIT/ML UNIT/ML Loratadine Loratadine No 1{table QD Loratadine 10 MG 10 MG t} 10 MG buPROPion buPROPion No 1{table QD buPROPion HCl ER (SR) HCl ER (SR) t_in_ HCl ER 150 MG 150 MG e_morni (SR) 150 ng} MG Levothyroxi Levothyroxi No Levothyrox ne Sodium ne Sodium ine Sodium 150 MCG 150 MCG 150 MCG Famotidine Famotidine No Famotidine 40 MG 40 MG 40 MG Lisinopril Lisinopril No Lisinopril 5 MG 5 MG 5 MG Loratadine Loratadine No 1{table QD Loratadine 10 MG 10 MG t} 10 MG Insulin Insulin No Insulin Glargine Glargine Glargine 100 UNIT/ML 100 UNIT/ML 100 UNIT/ML Cholecalcif Cholecalcif No 1{capsu QD Cholecalci daryl 50 MCG daryl 50 MCG le} ferol 50 (1999) (1999) MCG (1999) Pantoprazol Pantoprazol No 1{table QD Pantoprazo e Sodium 40 e Sodium 40 t} le Sodium MG MG 40 MG amLODIPine amLODIPine No 1{table QD amLODIPine Besylate 10 Besylate 10 t} Besylate MG MG 10 MG Atorvastati Atorvastati No Atorvastat n Calcium n Calcium in Calcium 40 MG 40 MG 40 MG buPROPion buPROPion No 1{table QD buPROPion HCl ER (SR) HCl ER (SR) t_in_th HCl ER 150 MG 150 MG e_morni (SR) 150 ng} MG Metoprolol Metoprolol No Metoprolol Succinate Succinate Succinate ER 50 MG ER 50 MG ER 50 MG Insulin Insulin No Insulin Lispro 100 Lispro 100 Lispro 100 UNIT/ML UNIT/ML UNIT/ML Furosemide Furosemide No 1{table QD Furosemide 80 MG 80 MG t} 80 MG Levothyroxi Levothyroxi No Levothyrox ne Sodium ne Sodium ine Sodium 150 MCG 150 MCG 150 MCG Famotidine Famotidine No Famotidine 40 MG 40 MG 40 MG Lisinopril Lisinopril No Lisinopril 5 MG 5 MG 5 MG Loratadine Loratadine No 1{table QD Loratadine 10 MG 10 MG t} 10 MG Insulin Insulin No Insulin Glargine Glargine Glargine 100 UNIT/ML 100 UNIT/ML 100 UNIT/ML Cholecalcif Cholecalcif No 1{capsu QD Cholecalci daryl 50 MCG daryl 50 MCG le} ferol 50 (1999) (1999) MCG (1999) Pantoprazol Pantoprazol No 1{table QD Pantoprazo e Sodium 40 e Sodium 40 t} le Sodium MG MG 40 MG amLODIPine amLODIPine No 1{table QD amLODIPine Besylate 10 Besylate 10 t} Besylate MG MG 10 MG Atorvastati Atorvastati No Atorvastat n Calcium n Calcium in Calcium 40 MG 40 MG 40 MG buPROPion buPROPion No 1{table QD buPROPion HCl ER (SR) HCl ER (SR) t_in_th HCl ER 150 MG 150 MG e_morni (SR) 150 ng} MG Metoprolol Metoprolol No Metoprolol Succinate Succinate Succinate ER 50 MG ER 50 MG ER 50 MG Insulin Insulin No Insulin Lispro 100 Lispro 100 Lispro 100 UNIT/ML UNIT/ML UNIT/ML Furosemide Furosemide No 1{table QD Furosemide 80 MG 80 MG t} 80 MG Pantoprazol Pantoprazol No 1{table QD Pantoprazo e Sodium 40 e Sodium 40 t} le Sodium MG MG 40 MG Insulin Insulin No Insulin Glargine Glargine Glargine 100 UNIT/ML 100 UNIT/ML 100 UNIT/ML Metoprolol Metoprolol No 1{capsu QD Metoprolol Succinate Succinate le} Succinate 50 MG 50 MG 50 MG Atorvastati Atorvastati No 1{table QD Atorvastat n Calcium n Calcium t} in Calcium 40 MG 40 MG 40 MG Aspirin 325 Aspirin 325 No 1{table QD Aspirin MG MG t} 325 MG Furosemide Furosemide No 1{table QD Furosemide 80 MG 80 MG t} 80 MG Lisinopril Lisinopril No 1{table QD Lisinopril 5 MG 5 MG t} 5 MG Docusate Docusate No 1{capsu QD Docusate Sodium 50 Sodium 50 le_as_n Sodium 50 MG MG eeded} MG amLODIPine amLODIPine No 1{table QD amLODIPine Besylate 10 Besylate 10 t} Besylate MG MG 10 MG buPROPion buPROPion No 1{table QD buPROPion HCl ER (SR) HCl ER (SR) t_in_ HCl ER 150 MG 150 MG e_morni (SR) 150 ng} MG Centrum Centrum No [facility] Women Ondansetron Ondansetron No 1{table QD Ondansetro 4 MG 4 MG t_ n 4 MG e_tongu e_and_a llow_to _dissol ve} Bactrim Bactrim No 1{table QD Bactrim 400-80 MG 400-80 MG t} 400-80 MG Loratadine Loratadine No 1{table QD Loratadine 10 MG 10 MG t} 10 MG Insulin Insulin No Insulin Lispro 100 Lispro 100 Lispro 100 UNIT/ML UNIT/ML UNIT/ML Cholecalcif Cholecalcif No 1{capsu QD Cholecalci daryl 50 MCG daryl 50 MCG le} ferol 50 (1999) (1999) MCG (1999) Sucralfate Sucralfate No 1{table BID Sucralfate 1 GM 1 GM t_on_an 1 GM _empty_ stomach } Pantoprazol Pantoprazol No 1{table QD Pantoprazo e Sodium 40 e Sodium 40 t} le Sodium MG MG 40 MG Insulin Insulin No Insulin Glargine Glargine Glargine 100 UNIT/ML 100 UNIT/ML 100 UNIT/ML Metoprolol Metoprolol No 1{capsu QD Metoprolol Succinate Succinate le} Succinate 50 MG 50 MG 50 MG Atorvastati Atorvastati No 1{table QD Atorvastat n Calcium n Calcium t} in Calcium 40 MG 40 MG 40 MG Aspirin 325 Aspirin 325 No 1{table QD Aspirin MG MG t} 325 MG Furosemide Furosemide No 1{table QD Furosemide 80 MG 80 MG t} 80 MG Lisinopril Lisinopril No 1{table QD Lisinopril 5 MG 5 MG t} 5 MG Docusate Docusate No 1{capsu QD Docusate Sodium 50 Sodium 50 le_as_n Sodium 50 MG MG eeded} MG amLODIPine amLODIPine No 1{table QD amLODIPine Besylate 10 Besylate 10 t} Besylate MG MG 10 MG buPROPion buPROPion No 1{table QD buPROPion HCl ER (SR) HCl ER (SR) t_in_th HCl ER 150 MG 150 MG e_morni (SR) 150 ng} MG Centrum Centrum No [facility] Ondansetron Ondansetron No 1{table QD Ondansetro 4 MG 4 MG t_on_ n 4 MG e_tongu e_and_a llow_to _dissol ve} Bactrim Bactrim No 1{table QD Bactrim 400-80 MG 400-80 MG t} 400-80 MG Loratadine Loratadine No 1{table QD Loratadine 10 MG 10 MG t} 10 MG Insulin Insulin No Insulin Lispro 100 Lispro 100 Lispro 100 UNIT/ML UNIT/ML UNIT/ML Cholecalcif Cholecalcif No 1{capsu QD Cholecalci daryl 50 MCG daryl 50 MCG le} ferol 50 (1999 [facility]) (1999) MCG (1999) Sucralfate Sucralfate No 1{table BID Sucralfate 1 GM 1 GM t_on_an 1 GM _empty_ stomach } Pantoprazol Pantoprazol No 1{table QD Pantoprazo e Sodium 40 e Sodium 40 t} le Sodium MG MG 40 MG Insulin Insulin No Insulin Glargine Glargine Glargine 100 UNIT/ML 100 UNIT/ML 100 UNIT/ML Immunizations Ordered Immunization Filled Immunization Date Status Commen ts Source Name Name ARIADNE COVID-19 MRNA 2021-07-27 Completed [facility] VACCINATION 00:00:00 [facility] PFIZER COVID-19 MRNA 2021-02-25 Completed Meth odist VACCINATION 00:00:00 [facility] PFIZER COVID-19 MRNA 2021-01-06 Completed [facility] od[facility] VACCINATION 00:00:00 Hospital Vital Signs Vital Name Observation Time Observation Value Comments Source height 2022-02-27 11:20:00 66.0 [in_i] [facility] weight 2022-02-27 11:20:00 236.6 [lb_av] [facility] temperature 2022-02-27 11:20:00 97.2 [degF] [facility] 2022-02-27 11:20:00 38.18 kg/m2 [facility] oximetry 2022-02-27 11:20:00 94 % [facility] respiratory rate 2022-02-27 11:20:00 16 /min Comm on [facility] blood pressure 2022-02-27 11:20:00 138 mm[Hg] [facility] systolic [facility] blood pressure 2022-02-27 11:20:00 76 mm[Hg] [facility] diastolic [facility] height 2022-02-27 11:00:00 66.0 [in_i] [facility] weight 2022-02-27 11:00:00 236.6 [lb_av] [facility] temperature 2022-02-27 11:00:00 97.2 [degF] [facility] bmi 2022-02-27 11:00:00 38.18 kg/m2 [facility] oximetry 2022-02-27 11:00:00 93 % [facility] respiratory rate 2022-02-27 11:00:00 16 /min Comm on [facility] blood pressure 2022-02-27 11:00:00 138 mm[Hg] [facility] systolic [facility] blood pressure 2022-02-27 11:00:00 76 mm[Hg] [facility] - diastolic [facility] Systolic blood 2020-10-14 14:10:00 120 mm[Hg] [facility] Diastolic blood 2020-10-14 14:10:00 65 mm[Hg] [facility] Heart rate 2020-10-14 14:10:00 81 /min [facility] Body temperature 2020-10-14 14:10:00 36.06 Katharina [facility] Respiratory rate 2020-10-14 14:10:00 13 /min [facility] Oxygen saturation in 2020-10-14 14:10:00 99 /min [facility] by [place] [facility] Body height 2020-10-01 18:42:00 167.6 cm [facility] Body weight 2020-10-01 18:42:00 108.4 kg [facility] BMI 2020-10-01 18:42:00 38.59 kg/m2 [facility] Systolic blood 2020-10-14 14:10:00 120 mm[Hg] [facility] Diastolic blood 2020-10-14 14:10:00 65 mm[Hg] [facility] Heart rate 2020-10-14 14:10:00 81 /min [facility] Body temperature 2020-10-14 14:10:00 36.06 Katharina [facility] Respiratory rate 2020-10-14 14:10:00 13 /min [facility] Oxygen saturation in 2020-10-14 14:10:00 99 /min [facility] blood by [place] [facility] Body height 2020-10-01 18:42:00 167.6 cm [facility] Body weight 2020-10-01 18:42:00 108.4 kg [facility] BMI 2020-10-01 18:42:00 38.59 kg/m2 [facility] Systolic blood 2020-04-01 13:55:00 113 mm[Hg] [facility] Diastolic blood 2020-04-01 13:55:00 56 mm[Hg] [facility] Heart rate 2020-04-01 13:55:00 63 /min [facility] Body temperature 2020-04-01 13:55:00 36.11 Katharina [facility] Oxygen saturation in 2020-04-01 13:50:00 100 /min [facility] blood by [facility] Pulse oximetry Branch Respiratory rate 2020-04-01 13:45:00 18 /min [facility] Body height 2020-03-30 17:15:00 167.6 cm [facility] Body weight 2020-03-30 17:15:00 108.41 kg [facility] BMI 2020-03-30 17:15:00 38.58 kg/m2 [facility] Systolic blood 2020-04-01 13:55:00 113 mm[Hg] [facility] Diastolic blood 2020-04-01 13:55:00 56 mm[Hg] [facility] Heart rate 2020-04-01 13:55:00 63 /min [facility] Body temperature 2020-04-01 13:55:00 36.11 Katharina [facility] Oxygen saturation in 2020-04-01 13:50:00 100 /min [facility] blood by [facility] Pulse oximetry Branch Respiratory rate 2020-04-01 13:45:00 18 /min [facility] Body height 2020-03-30 17:15:00 167.6 cm [facility] Body weight 2020-03-30 17:15:00 108.41 kg [facility] BMI 2020-03-30 17:15:00 38.58 kg/m2 [facility] Respiratory rate 2020-04-01 13:32:00 18 /min [facility] Respiratory rate 2020-04-01 13:32:00 18 /min [facility] Oxygen saturation in 2022-04-26 17:30:00 93 /min [facility] blood by Pulse oximetry Heart rate 2022-04-26 17:30:00 76 /min [facility] Systolic blood 2022-04-26 17:20:00 139 mm[Hg] [facility] pressure Diastolic blood 2022-04-26 17:20:00 67 mm[Hg] [facility] pressure Respiratory rate 2022-04-26 17:20:00 16 /min [facility] Body temperature 2022-04-26 17:00:00 36.44 Katharina [facility] Body height 2022-04-24 17:06:00 167.6 cm [facility] Body weight 2022-04-24 17:06:00 110.224 kg [facility] BMI 2022-04-24 17:06:00 39.22 kg/m2 [facility] Systolic (mm Hg) 2021-02-23 20:05:00 [facility] Diastolic (mm Hg) 2021-02-23 20:05:00 [facility] Heart Rate 2021-02-23 20:05:00 [facility] Respitory Rate 2021-02-23 [facility] Height 2021-02-23 20:05:00 162.56 cm [facility] Weight 2021-02-23 20:05:00 [facility] BMI Calculated 2021-02-23 [facility]:05[facility] Procedures Procedure Date / Time Performing Source Performed Clinician POC GLUCOSE 2022-04-26 [facility] 16:04:00 E. AR AN ELECTIVE ENDOTRACHEAL 2022-04-26 Mariely De La Cruz [facility] AIRWAY 15:12:00 LAPAROSCOPIC REMOVAL OR 2022-04-26 Jose Bo [facility] REPOSITIONING OF PERITONEAL 14:56:00 E. DIALYSIS CATHETER ESTIMATED GFR 2022-04-26 [facility] 13:00:00 E. POC PANEL 2022-04-26 [facility] 13:00:00 E. POC GLUCOSE 2022-03-06 [facility] 16:[facility]:00 E. SURGICAL PATHOLOGY REQUEST 2022-03-06 Jose Bo [facility] 15:28:00 E. POC GLUCOSE 2022-03-06 [facility] 15:23:00 E. ANESTHESIA INTUBATION 2022-03-06 [facility] 12:57:00 CHOLECYSTECTOMY, LAPAROSCOPIC 2022-03-06 [facility] 12:44:00 E. INSERTION, CATHETER, 2022-03-06 [facility] DIALYSIS, PERITONEAL, 12:44:00 E. LAPAROSCOPIC ESTIMATED GFR 2022-03-06 [facility] 11:50:00 E. POC PANEL 2022-03-06 [facility] 11:50:00 E. BASIC METABOLIC PANEL 2022-03-06 [facility] 11:40:00 ESTIMATED GFR 2022-03-06 [facility] 11:40[facility]00 CBC WITH PLATELET AND 2022-03-01 [facility] DIFFERENTIAL 18:18:00 HEMOGLOBIN A1C 2022-03-01 [facility] 18:18:00 PARTIAL THROMBOPLASTIN TIME 2022-03-01 [facility] (PTT) 18:18:00 PROTHROMBIN TIME WITH INR 2022-03-01 [facility] 18:18:00 REFERRAL- REQUEST/RESPONSE 2022-02-07 Doctor Unassigned, Un [facility] [place] 05:01:00 [facility] ECG PRE/POST OP 2021-12-12 [facility] 20:54:02 CBC WITH PLATELET AND 2021-12-12 [facility] DIFFERENTIAL 20:25:00 HEMOGLOBIN A1C 2021-12-12 [facility] 20:25:00 TYPE AND SCREEN 2021-12-12 [facility] 20:25:00 PHACOEMULSIFICATION OF 2020-10-14 Aleisha [facility] CATARACT WITH INTRAOCULAR 13:33:00 [facility] LENS IMPLANT POCT GLUCOSE (AUTOMATED) 2020-10-14 Fausto Moraes [facility] 12:38:00 [facility] POCT GLUCOSE(AGE >30DAYS) 2020-10-14 AlexsandralolabayshruthiAnita [facility] 12:35:00 Medical Branch ASSIGNMENT OF BENEFITS 2020-10-12 Doctor Unassigned, [facility] 16:32:53 [facility] POCT GLUCOSE(AGE >30DAYS) 2020-04-01 Bora Skinner [facility] 12:03:00 Medical Branch ASSIGNMENT OF BENEFITS 2020-03-30 Doctor Unassigned, [facility] 16:01:28 [facility] NOTICE OF BILLING PRACTICES 2020-03-23 Doctor Unassigned, [facility] FOR MEDICARE PATIENTS 20:49:43 [facility] PATIENT FINANCIAL POLICY 2020-03-23 Doctor Unassigned, [facility] 20:49:19 [facility] NO SHOW OR MISSED APPOINTMENT 2020-03-23 Doctor Unassigned, [facility] POLICY ACKNOWLEDGEMENT 20:48:59 [facility] ranch NOTICE OF PRIVACY PRACTICES 2020-03-23 Doctor Unassigned, [facility] 20:48:48 [facility] CONSENT/REFUSAL FOR DIAGNOSIS 2020-03-23 Doctor Unassigned, [facility] AND TREATMENT 20:48:30 [facility] ASSIGNMENT OF BENEFITS 2020-03-23 Doctor Unassigned, [facility] 20:48:19 [facility] PHYSICIAN ORDERS 2020-03-23 Doctor Unassigned, [facility] 05:01:00 [facility] Knee replacement<sup>2</sup> [facility] orial Lewis Fusion<sup>1</sup> [facility] joss Back fusion [facility] Plan of Care Planned Activity Planned Date Details Comments Source Future Scheduled 2022-06-11 HEPATITIS B VACCINES Met [facility] Test 01:18:56 (1 of 3 - 3-dose series) [code = HEPATITIS B VACCINES (1 of 3 - 3-dose series)] Future Scheduled 2022-06-11 Hepatitis C screening [facility] Test 01:18:56 (procedure) [code = 193307626] Future Scheduled 2022-06-11 SHINGLES VACCINES (1 Met [facility] Test 01:18:56 of 2) [code = SHINGLES VACCINES (1 of 2)] Future Scheduled 2022-06-11 BREAST CANCER [facility] Test 01:18:56 SCREENING [code = BREAST CANCER SCREENING] Future Scheduled 2022-06-11 COLONOSCOPY SCREENING [facility] Test 01:18:56 [code = COLONOSCOPY SCREENING] Future Scheduled 2022-06-11 65+ PNEUMOCOCCAL Methodi [facility] Test 01:18:56 VACCINE (3 - PCV) [code = 65+ PNEUMOCOCCAL VACCINE (3 - PCV)] Future Scheduled 2022-06-11 INFLUENZA VACCINE Method [facility] Test 01:18:56 [code = INFLUENZA VACCINE] Encounters Start End Encounter Admission Attending Care Care Encounter Source Date/Time Date/Time Type Type Clinicians Facility Department ID 2022-05-25 Outpatient Hernandez, STLMLC STLC [id number] Common 11:25:01 [facility] 2022-02-27 Outpatient Hernandez, STLMLC STLC [id number] Common 10:42:02 [facility] 2022-02-03 Outpatient Myrick, STLMLC STLC [id number] Common 12:12:00 Avnee [facility] 2022-01-31 Outpatient Myrick, STLMLC STLC [id number] Common 12:38:00 Avnee [facility] 2021-12-02 Outpatient Myrick, STLMLC STLC [id number] Common 15:52:01 Avnee [facility] 2021-12-01 Outpatient Myrick, STLMLC STLC [id number] Common 10:24:03 Avnee [facility] 2021-11-21 Outpatient Myrick, STLMLC STLC [id number] Common 10:05:12 Avnee [facility] 2021-11-08 Outpatient Myrick, STLMLC STLC [id number] Common 08:37:01 Avnee [facility] 2021-11-04 Outpatient Myrick, STLMLC STLC [id number] Common 14:15:04 Avnee [facility] 2021-10-31 Outpatient Alexandra Arrieta STLMLC STLMLC [id number] Common 09:40:02 [facility] 2021-08-04 Outpatient 3 [id number] ENCPL REF [id number] [facility] 13:44:15 [facility] [place] 2021-08-04 Outpatient 3 [id number] ENCPL REF [id number] [facility] 13:21:20 [facility] [place] 2021-05-08 Outpatient Estevan MORAES [facility] O[facility] [id number] Univers 08:53:46 [facility] 2021-05-06 Outpatient Estevan MORAES [facility] ECTOR [id number] Univers 18:47:42 [facility] 2022-06-08 2022-06-08 (TEL) STLMLC STLMLC [id number] Co mmon 00:00:00 00:00:00 [facility] 2022-05-31 2022-05-31 (TEL) STLMLC STLMLC [id number] Co mmon 00:00:00 00:00:00 [facility] 2022-04-26 2022-04-26 [facility], 1.2.840.1 [id number] 21 [id number] Methodi 06:55:00 12:55:00 Encounter Jose Keller 18845.1.[address] 3.430.2.7 Hospit a .3.709850 l .8 2022-04-26 2022-04-26 Anesthesia Reji Waldrop 1.2.840.1 1 [id number] Methodi 09:56:00 11:03:00 Event Ce Knutson 95208.1.[address] 3.430.2.7 Hospit a .3.839523 l .8 2022-04-26 2022-04-26 Surgery [facility], 1.2.840.1 [id number] Methodi 09:15:00 10:45:00 Jose Keller 57575.1.1 677 s t 3.430.2.7 Hospit a .3.364320 l .8 2022-04-26 2022-04-26 Outpatient EUGENIO, [facility] 021 2099 [id number] [place] 00:00:00 00:00:00 JOSE [address] 2022-04-26 2022-04-26 Travel 1.2.840.1 1.2.041.689 4151 [id number] Methodi 00:00:00 00:00:[address] 3.430.2.7 0.2.7.3.698 Ho spita .3.216944 084.8 l .8 2022-04-24 2022-04-24 Travel 1.2.840.1 1.2.901.767 4393 826226 Methodi 00:00:00 00:00:[address] 3.430.2.7 0.2.7.3.698 Ho spita .3.502620 084.8 l .8 2022-04-21 2022-04-21 Prep for Eugenio, 1.2.840.1 [id number] 21 [id number] Methodi 00:00:00 00:00:00 Surgery Jose LuevanoShaji 22122.1.1 940 s t 3.430.2.7 Hospit a .3.387337 l .8 2022-04-21 2022-04-21 Orders [place], 1.2.840.1 [id number] 907 [id number] Methodi 00:00:00 00:00:00 Only Jose Luevano. 59695.1.1 613 s t 3.430.2.7 Hospit a .3.097383 l .8 2022-04-05 2022-04-05 Outpatient Estevan IVERSON [facility] [id number] Univers 15:00:00 15:00:00 CARSON adam [facility] 2022-03-21 2022-03-21 Office Eugenio, 1.2.840.1 [id number] Methodi 11:30:00 12:00:24 Visit Jose Keller 49609.1.1 407 s t 3.430.2.7 Hospit a .3.259450 l .8 2022-03-21 2022-03-21 Outpatient EUGENIO [facility] 2099 [id number] [place] 00:00:00 00:00:00 JOSE [address] 2022-03-21 2022-03-21 Travel 1.2.840.1 1.2.860.960 9303 [id number] Methodi 00:00:00 00:00:[address] 3.430.2.7 0.2.7.3.698 Ho spita .3.886039 084.8 l .8 2022-03-15 2022-03-15 Outpatient Estevan IVERSON [facility] [id number] Univers 10:00:00 10:00:00 CARSON adam [facility] 2022-03-14 2022-03-14 (TEL) [facility] [id number] Co mmon 00:00:00 00:00:00 [facility] 2022-03-06 2022-03-06 [facility] 1.2.840.1 [id number] 21 [id number] Methodi 05:46:00 12:05:00 Encounter Jose Keller 98305.1.[address] 3.430.2.7 Hospit a .3.228681 l .8 2022-03-06 2022-03-06 Anesthesia Jory Santoro [place] 1.2.840. 1 [id number] Methodi 07:44:00 09:46:00 Event Corrina Cavanaugh 34317.1.[address] 3.430.2.7 Hospit a .3.554973 l .8 2022-03-06 2022-03-06 Surgery [facility], 1.2.840.1 [id number] 860 [id number] Methodi 07:45:00 09:05:00 Jose LuevanoShaji 49688.1.1 269 s t 3.430.2.7 Hospit a .3.321186 l .8 2022-03-06 2022-03-06 Outpatient [facility] 2099 [id number] [place] 00:00:00 00:00:00 JOSE [address] 2022-03-01 2022-03-01 Pre-Admiss [place], 1.2.840.1 [id number] Methodi 13:00:00 14:00:00 ion Jose Keller 05153.1.1 998 s t Testing 3.430.2.7 Hospit a .3.602157 l .8 2022-03-01 2022-03-01 Outpatient [facility] 2099 [id number] [place] 00:00:00 00:00:00 JOSE [address] 2022-03-01 2022-03-01 Travel 1.2.840.1 1.2.566.560 1616 [id number] Methodi 00:00:00 00:00:[address] 3.430.2.7 0.2.7.3.698 Ho spita .3.199080 084.8 l .8 2022-02-27 2022-02-27 SUB ANNUAL [facility] [id number] Common 00:00:00 00:00:00 MCR Spirit WELLNESS - CHI VISIT [facility] 2022-02-27 2022-02-27 OFFICE [facility] [id number] Co mmon 00:00:00 00:00:00 VISIT Spirit ESTAB PT - CHI LEVEL 4 [facility] 2022-02-27 2022-02-27 (TEL) [facility] [id number] Co mmon 00:00:00 00:00:00 Spirit - CHI [facility] 2022-02-07 2022-02-07 Orders Doctor ROSELIA 1.2.840.[id number] [place] [address] 00:00:00 00:00:00 Only Unassigned, CINDY 350.1.13.10 ity of [place] [facility] 4.2.7.2.686 Negrito as [phone] [place] [address] Branch 2022-02-02 2022-02-02 (TEL) [facility] [id number] Co mmon 00:00:00 00:00:00 [facility] 2022-01-31 2022-01-31 Travel 1.2.840.1 1.2.492.607 4228 [id number] Methodi 00:00:00 00:00:[address] 3.430.2.7 0.2.7.3.698 Ho spita .3.759029 084.8 l .8 2022-01-27 2022-01-27 (TEL) STLMLC STLMLC [id number] Co mmon 00:00:00 00:00:00 [facility] 2021-12-30 2021-12-30 (TEL) STLMLC STLMLC [id number] Co mmon 00:00:00 00:00:00 [facility] 2021-12-19 2021-12-19 (TEL) STLMLC STLMLC [id number] Co mmon 00:00:00 00:00:00 [facility] 2021-12-13 2021-12-13 (TEL) STLMLC STLMLC [id number] Co mmon 00:00:00 00:00:00 [facility] 2021-12-12 2021-12-12 Pre-Admiss [facility], 1.2.840.1 [id number] Methodi 15:00:00 16:00:00 ion Jose Keller 74378.1.1 317 s t Testing 3.430.2.7 Hospit a .3.916492 l .8 2021-12-12 2021-12-12 [facility] 2100 [id number] [place] 00:00:00 00:00:00 JOSE [address] 2021-12-12 2021-12-12 Travel 1.2.840.1 1.2.206.188 7218 [id number] Methodi 00:00:00 00:00:[address] 3.430.2.7 0.2.7.3.698 Ho spita .3.143330 084.8 l .8 2021-12-08 2021-12-08 (TEL) STLMLC STLMLC [id number] Co mmon 00:00:00 00:00:00 [facility] 2021-12-01 2021-12-01 (TEL) STLMLC STLMLC [id number] Co mmon 00:00:00 00:00:00 [facility] 2021-11-30 2021-11-30 (TEL) STLMLC STLMLC [id number] Co mmon 00:00:00 00:00:00 [facility] 2021-11-25 2021-11-25 (TEL) STLMLC STLMLC [id number] Co mmon 00:00:00 00:00:00 [facility] 2021-11-21 2021-11-21 (TEL) STLMLC STLMLC [id number] Co mmon 00:00:00 00:00:00 [facility] 2021-11-18 2021-11-18 (TEL) STLMLC STLMLC [id number] Co mmon 00:00:00 00:00:00 [facility] 2021-11-15 2021-11-15 Office [place], 1.2.840.1 [id number] 886 [id number] Methodi 13:00:00 14:01:57 Visit Jose Keller 50059.1.1 465 s t 3.430.2.7 Hospit a .3.903261 l .8 2021-11-15 2021-11-15 (TEL) STLMLC STLMLC [id number] Co mmon 00:00:00 00:00:00 [facility] 2021-11-15 2021-11-15 Outpatient EUGENIO, [facility] 2100 [id number] [place] 00:00:00 00:00:00 JOSE [facility] [facility] 2021-11-15 2021-11-15 Prep for Allen, 1.2.840.1 [id number] 05418 Methodi 00:00:00 00:00:00 Surgery Funmi Sarabia 75262.1.[address] 3.430.2.7 Hospit a .3.817319 l .8 2021-11-15 2021-11-15 Travel 1.2.840.1 1.2.207.973 3000 [id number] Methodi 00:00:00 00:00:[address] 3.430.2.7 0.2.7.3.698 Ho spita .3.319659 084.8 l .8 2021-11-14 2021-11-14 (TEL) STLMLC STLMLC [id number] Co mmon 00:00:00 00:00:00 [facility] 2021-11-04 2021-11-04 (TEL) STLMLC STLMLC [id number] Co mmon 00:00:00 00:00:00 [facility] 2021-10-20 2021-10-20 Telephone Stephane, 1.2.840.1 [id number] [id number] Methodi 00:00:00 00:00:[address] 3.430.2.7 Hospit a .3.502972 l .8 2021-10-05 2021-10-05 Documentat Chace, 1.2.840.1 [id number] 21 [id number] Methodi 00:00:00 00:00:[address]iz [address]005.1.[address] 3.430.2.7 Hospit a .3.273029 l .8 2021-09-22 2021-09-22 Travel 1.2.840.1 1.2.702.189 1276 717886 Methodi 00:00:00 00:00:[address] 3.430.2.7 0.2.7.3.698 Ho spita .3.905779 084.8 l .8 2021-08-23 2021-08-23 Ambulatory nullFlavo MNA 37630 14467 Memoria 14:15:00 14:15:00 Pre-Reg r Neurology 06 l Browardrich Saucedo 2021-08-23 2021-08-23 Ambulatory nullFlavo MNA [id number] Memoria 14:15:00 14:15:00 Pre-Reg r Neurology 06 l Estelle Saucedo 2021-08-23 2021-08-23 Outpatient IE ELIANA [id number] Memoria 08:15:00 08:15:00 06 josy Saucedo 2021-08-23 2021-08-23 Outpatient Anand [facility] [id number] 08:15:00 08:15:00 Farhan Herminia Don 2021-07-12 2021-07-12 Ambulatory nullFlavo MNA [id number] Memoria 14:15:00 14:15:00 Pre-Reg r Neurology 05 l Estelle Saucedo 2021-07-12 2021-07-12 Ambulatory nullFlavo MNA [id number] Memoria 14:15:00 14:15:00 Pre-Reg r Neurology 05 l Estelle Saucedo 2021-07-12 2021-07-12 Outpatient Anand [facility] [id number] 08:15:00 08:15:00 Farhan Mela Don 2021-06-14 2021-06-14 Telephone Courtney, 1.2.840.1 [id number] Methodi 00:00:00 00:00:[address] 3.430.2.7 Hospit a .3.990663 l .8 2021-06-01 2021-06-01 Outpatient ELIANA ELIANA [id number] Memoria 09:00:00 09:00:00 05 josy Saucedo 2021-05-19 2021-05-19 Ambulatory nullFlavo MNA [id number] Memoria 14:15:00 14:15:00 Pre-Reg r Neurology 04 josy Saucedo 2021-05-19 2021-05-19 Ambulatory nullFlavo MNA [id number] Memoria 14:15:00 14:15:00 Pre-Reg r Neurology 04 josy Saucedo 2021-05-19 2021-05-19 Outpatient Anand [facility] [id number] 08:15:00 08:15:00 Farhan Mehdi Don 2021-05-10 2021-05-10 Outpatient MHIE IE [id number] Memoria 15:45:00 15:45:00 04 josy Saucedo 2021-03-31 2021-03-31 Ambulatory nullFlavo MNA [id number] Memoria 13:15:00 13:15:00 Pre-Reg r Neurology 03 l Estelle Saucedo 2021-03-31 2021-03-31 Ambulatory nullFlavo MNA [id number] [id number] Memoria 13:15:00 13:15:00 Pre-Reg r Neurology 03 l Estelle Saucedo 2021-03-31 2021-03-31 Outpatient MHIE MHIE [id number] Memoria 08:15:00 08:15:00 03 josy Saucedo 2021-03-31 2021-03-31 Outpatient ORLIN MichelSCHDARCI MISCHER [id number] 08:15:00 08:15:00 Farhan 03 Arian 2021-02-23 2021-02-24 Outpatient nullFlavo MNA [id number] Memoria 20:00:00 04:59:59 r Neurology 02 l Estelle Saucedo 2021-02-23 2021-02-24 Outpatient nullFlavo MNA [id number] Memoria 20:00:00 04:59:59 r Neurology 02 l Estelle Saucedo 2021-02-23 2021-02-23 Outpatient ORLIN MichelSCHDARCI MISCHER [id number] 15:00:00 23:59:59 Farhan 02 Arian 2021-02-23 2021-02-23 Outpatient MHIE IE [id number] Memoria 15:00:00 15:00:00 02 josy [place] 2020-10-14 2020-10-14 Surgery [facility], [facility] 1.2.840.114 [id number] Univers 08:34:00 09:10:00 Fausto Garza 350.1.13.10 i ty of [place].2.[place] [id number] [facility] 020 Branch 2020-10-14 2020-10-14 Surgery [facility] 1.2.840.114 [id number] 08:34:00 09:10:00 Greg 350.1.13.10 Keegan 4.2.7.2.686 Surgical [id number] [place] 020 2020-10-12 2020-10-12 Reheater Helper Jyoti, [facility] Lab Main [facility] 1.2.8 40.114 [id number] [facility] 11:40:06 11:55:06 Visit Fausto Moraes 350.1.1 3.10 ity of [place].2.686 [place] Profess[place] [id number] Mt dical [address] 2020-10-12 2020-10-12 [facility]heater [facility]per [facility] 1.2.840.114 [id number] 11:40:06 11:55:06 Visit Lab Main [place] 350.1.13.10 [place] 4.2.7.2.686 Professio [id number] [address] 2020-10-12 2020-10-12 Laboratory Only, [facility] Test [facility] 1.2.840. 114 [id number] [facility] 11:34:36 11:49:36 Only Fausto Moraes 350.1.1 3.10 ity of [place].2.686 [place] [id number] [address] 2020-10-12 2020-10-12 Laboratory Only, [facility] 1.2.840.114 [id number] 11:34:36 11:49:36 Only Test Greg 350.1.13.10 [place] 4.2.7.2.686 [place] [id number] [facility] 2020-10-12 2020-10-12 Outpatient R ALEISHA [facility] [id number] [facility] 10:45:00 10:45:00 FAUSTO ity of [facility] 2020-10-12 2020-10-12 Orders Doctor VELOZ 1.2.840.114 [id number] Univers 00:00:00 00:00:00 Only UnassignedCINDY 350.1.13.10 [facility] 4.2.7.2.686 Ne[place] as [id number] [address] 2020-10-12 2020-10-12 Orders Doctor VELOZ 1.2.840.114 [id number] 00:00:00 00:00:00 Only Unassigned, CINDY 350.1.13.10 [place] [facility] 4.2.7.2.686 [id number] 009 2020-05-13 2020-05-14 Outpatient SUSAN WHITE [facility] 021 [id number] [place] 00:00:00 00:00:[address] 2020-05-11 2020-05-11 Outpatient AMY [facility] [id number] [place] 00:00:00 00:00:00 IMRAN [address] 2020-04-01 2020-04-01 [facility] 1.2.840.114 [id number] [facility] 06:36:00 10:10:00 Encounter Fausto Garza 350.1.13.10 ity of [place].2.686 [place] [id number] [address] 2020-04-01 2020-04-01 [facility] 1.2.840.114 [id number] 06:36:00 10:10:00 Encounter Fausto Garza 350.1.13.10 [place] 4.2.7.2.686 Surgical [id number] [place] [address] 2020-04-01 2020-04-01 [facility] 1.2.840.11 4 [id number] Univers 08:01:00 08:33:00 Tracy [place] 350.1.13.10 ity zoraida [place] 4[place]2.7.2.686 [place] [id number] [address] 2020-04-01 2020-04-01 Anesthesia Demetrio Christensen [facility] 1.2.840.11 4 [id number] 08:01:00 08:33:00 Tracy [place] 350.1.13.10 Keegan 4.2.7.2.686 Surgical [id number] [place] [address] 2020-03-31 2020-03-31 [facility] [id number] Univers 09:30:00 09:30:00 FAUSTO adam [facility] 2020-03-30 2020-03-30 Outpatient R [facility] [id number] Univers 12:45:00 12:45:00 jair of [facility] 2020-03-30 2020-03-30 Laboratory Only, Adc Test [facility] 1.2.840. 114 [id number] Univers 11:17:56 11:32:56 Only Fausto Moraes Greg 350.1.1 3.10 ity of [place] 4.2.7.2.686 [place] [id number] [address] 2020-03-30 2020-03-30 Orders Doctor ROSELIA 1.2.840.114 [id number] Univers 00:00:00 00:00:00 Only Unassigned, CINDY 350.1.13.10 ity of [facility] 4.2.7.2.686 [place] as [id number] [address] 2020-03-25 2020-03-25 Outpatient AMY [facility] 021 [id number] [place] 00:00:00 00:00:00 IMRAN [address] 2020-03-23 2020-03-23 Reheater Helper Jyoti, Juanpablo Lab Main [facility] 1.2.8 40.114 [id number] Univers 15:51:10 16:06:10 Visit Fausto Moraes [place] Garza 350.1.1 3.10 ity of [place] 4.2.7.2.686 [place] [facility] [id number] [address] 2020-03-23 2020-03-23 Outpatient Estevan MORAES [facility] [id number] Univers 16:00:00 16:00:00 FAUSTO adam [facility] 2020-03-23 2020-03-23 Outpatient AMY [facility] [id number] [place] 00:00:00 00:00:00 IMRAN [address] 2020-03-23 2020-03-23 Outpatient MODESTA [facility] [id number] [place] 00:00:00 00:00:00 KI, [address] Results Test Description Test Time Test Comments Results Result Comments Source POC glucose 2022-04-26 16:16:00 Test Item Value Reference Range Interpretation Comme nts POC glucose (test code = 89 mg/dL 65-99 Ope rator Name: Rubin Alfaro ID: [id number]) [id number] able: RN Notified [facility] [id number] 13:03:01 Test Item Value Reference Range Interpretation Comments POC sodium (test code = 140 mmol/L 453-315 1747-0) POC potassium (test code 3.9 mmol/L 3.5-5.0 = 6298-4) POC glucose (test code = 78 mg/dL 65-99 2339-0) POC creatinine (test 4.6 mg/dl 0.5-0.9 H Operato r Name: code = 74812-6) Marko kyle ID: [id number] POC hemoglobin (test 8.5 g/dL 12.0-16.0 L code = 718-7) POC hematocrit (test 25 % 37-47 L code = 4544-3) Lab Interpretation (test Abnormal code = 70174-5) [id number] 13:03:00 Test Item Value Reference Range Interpretation Comments Estimated GFR (test mL/min/1.73 m2 A Luis souza Units code = 87293-1) Interpretati onG1 >=90 Normal or highG 2 60-89 Mildly decrease dG3a 45-59 Mildly to moderately decr tazocI9w 30-44 Moderatel y to severely decrea sedG4 15-29 Severely decreasedG5 <15 Kidney failureThe eGFR was calculated jannie g the Chronic Kidney Disease Epidemiology Collaboration ( CKD-EPI) equation. Interpretation is based on recommendati ons of the [facility]Kid[facility] ey Disease Outcome s Quality Initiat hermes (NKF-KDOQI) pub lished in 2013. Lab Interpretation Abnormal (test code = 79037-2) [facility] [id number] 19:03:18 Test Item Value Reference Range Interpretation Comments Case number (test code = [id number]) Surgical pathology See link below for report (test code = PDF Lab Report 2252) Result status (test code This is Final Report = [id number]) [id number] [facility] [id number] 10:49:53 Test Item Value Reference Range Interpretation Comments Ventricular rate (test code = 253) Atrial rate (test code = 255) AR interval (test code = 266) QRSD interval (test code = 260) QT interval (test code = 264) QTC interval (test code = 265) P axis 1 (test code = 267) QRS axis 1 (test code = 268) T wave axis (test code = 270) EKG impression (test Sinus code = 273) tachycardia-Possible Inferior infarct , age undetermined-Abnormal ECG-In automated comparison with ECG of 11-MAY-2020 14:54,-Borderline criteria for Inferior infarct are now present-T wave inversion now evident in Inferior leads- [facility] GLUCOSE (AUTOMATED)2020-10-14 12:45:50 Test Item Value Reference Range Interpretation Comments POCT GLU (test code = 4809558721) 255 mg/dL 70-110 H Lab Interpretation (test code = Abnormal 09536-2) [facility] [id number] 12:35:00 Test Item Value Reference Range Interpretation Comments POCT Glu (age>30days) (test code = 255 mg/dL 70-110 A 3342) Lab Interpretation (test code = Abnormal 97772-4) [facility]-CoV-2 (COVID-19) RNA [Presence] in Respiratory specimen by JUANY with probe [id number] 01:15:19 Test Item Value Reference Range Interpretation Comments SARS-CoV-2 (COVID-19) RNA Not detected Not-Detected [Presence] in Respiratory specimen by JUANY with probe detection (test code = 15880-9) [facility] [id number] 12:03:00 Test Item Value Reference Range Interpretation Comments POCT Glu (age>30days) (test code = 142 mg/dL 70-110 A 3342) Lab Interpretation (test code = Abnormal 29207-7) [facility]-CoV-2 (COVID-19) RNA [Presence] in Respiratory specimen by JUANY with probe [id number] 18:03:16 Test Item Value Reference Range Interpretation Comments SARS-CoV-2 (COVID-19) RNA Not detected Not-Detected [Presence] in Respiratory specimen by JUANY with probe detection (test code = 46552-3) [facility] [facility]
[2022-06-11 01:52] LABS: Hematocrit 24.3 % (36.0-45.0); Lymphocytes % 6.4 % (15.3-44.8); MCV 93.9 fL (80-100); MPV 7.7 fL (7.6-11.3); RBC Red Blood Cell Count 2.59 M/uL (3.86-4.86)
[2022-06-11 02:20] LABS: Magnesium 2.8 mg/dL (1.8-2.4); Potassium 3.7 mmol/L (3.5-5.1); Troponin High Sensitivity 57.6 pg/mL (<58.9)
[2022-06-11] MEDS ORDERED: ONDANSETRON 4 MG/2 ML VIAL ONE (02:37)
--- NOTE | 2022-06-11 03:05 | EDPHYS ---
[facility] Name: Meseret Gallego Age: 67 yrs Sex: Female : 1955 Arrival Date: 06/11/2022 Time: 01:26 Bed 2 Private MD: ED Physician Derek Crespo HPI: 06/11 01:39 This 67 yrs old Female presents to ER via EMS with complaints of shortness of breath. ms3 01:39 The patient has shortness of breath with light activity. Onset: The symptoms/episode ms3 began/occurred 1 week(s) ago. 01:45 Duration: The symptoms are continuous, and are steadily getting worse. The patient's ms3 shortness of breath is aggravated by exertion, is alleviated by nothing. Associated signs and symptoms: Pertinent positives: This patient does not have any pertinent positive signs or symptoms associated with shortness of breath. Severity of symptoms: At their worst the symptoms were moderate in the emergency department the symptoms are unchanged. Historical: - Allergies: :29 Codeine; as6 01:29 Phenergan; as6 01:29 Tape; as6 - Home Meds: 01:29 Lantus U-100 Insulin 100 unit/mL Sub-Q crtg [Active]; atorvastatin 40 mg oral tab 1 tab as6 once daily [Active]; metoprolol tartrate 50 mg Oral tab [Active]; Wellbutrin XL 150 mg Oral Tb24 1 tab once daily [Active]; amlodipine 10 mg tab 1 tab once daily [Active]; furosemide 80 mg oral tab 1 tab once daily [Active]; lisinopril 5 mg Oral tab 1 tab once daily [Active]; - PMHx: 01:29 Diabetes - IDDM; Dialysis; Hypertension; Hypothyroidism; Hypercholesterolemia; as6 - PSHx: 01:29 section; knee; back; neck; as6 - Immunization history:: Client reports receiving the 2nd dose of the Covid vaccine, pfizer Flu vaccine is up to date. - Social history:: Smoking status: Patient denies any tobacco usage or history of. ROS: 01:45 Constitutional: Negative for fever, and chills. Neck: Negative for injury, pain, and ms3 swelling, Cardiovascular: Negative for chest pain, and palpitations. 01:45 Abdomen/GI: Negative for abdominal pain, nausea, vomiting, diarrhea, and constipation, Skin: Negative for injury, rash, and discoloration, Neuro: Negative for headache, weakness, numbness, tingling. 01:45 Respiratory: Positive for shortness of breath. 01:45 All other systems are negative. Exam: 01:45 Constitutional: This is a well developed, well nourished patient who is awake, alert, ms3 and in no acute distress. Head/Face: Normocephalic, atraumatic. Neck: Trachea midline, no cervical lymphadenopathy. Supple, full range of motion without nuchal rigidity, or vertebral point tenderness. No Meningismus. Chest/axilla: Normal chest wall appearance and motion. Nontender with no deformity. Cardiovascular: Regular rate and rhythm with a normal S1 and S2. No gallops, murmurs, or rubs. Normal PMI, no JVD. No pulse deficits. 01:45 Abdomen/GI: Soft, non-tender, with normal bowel sounds. No distension or tympany. No guarding or rebound. No evidence of tenderness throughout. Skin: Warm, dry with normal turgor. Normal color with no rashes, no lesions, and no evidence of cellulitis. Neuro: Awake and alert, GCS 15, oriented to person, place, time, and situation. Cranial nerves II-XII grossly intact. Motor strength 5/5 in all extremities. Sensory grossly intact. Cerebellar exam normal. Normal gait. Psych: Awake, alert, with orientation to person, place and time. Behavior, mood, and affect are within normal limits. 01:45 Respiratory: the patient does not display signs of respiratory distress, Respirations: Breath sounds: rales, that are moderate, are located in both bases. 02:30 ECG was reviewed by the Attending Physician. ms3 Vital Signs: 01:26 BP 105 / 45; Pulse 77; Resp 19 S; Temp 97.9(O); Pulse Ox 100% on 4 lpm NC; Weight as6 108.86 kg (R); Height 5 ft. 6 in. (167.64 cm) (R); Pain 8/10; 01:51 BP 86 / 73; Pulse 62; Resp 13; Pulse Ox 100% on NC; ll3 03:26 BP 101 / 60; Pulse 68; Resp 16 S; Pulse Ox 100% on 4 lpm NC; as6 05:18 BP 105 / 66; Pulse 71; Resp 17 S; Pulse Ox 100% on 4 lpm NC; as6 01:26 Body Mass Index 38.74 (108.86 kg, 167.64 cm) as6 MDM: 01:26 Patient medically screened. ms3 03:15 Data reviewed: vital signs, nurses notes, lab test result(s), EKG, radiologic studies, ms3 and as a result, I will admit patient. Counseling: I had a detailed discussion with the patient and/or guardian regarding: the historical points, exam findings, and any diagnostic results supporting the discharge/admit diagnosis, lab results, radiology results, the need for further work-up and treatment in the hospital. ED course: Discussed case with PAM Menjivar, and she accepts patient on behalf of Dr Dhillon.. 06/11 01:27 Order name: Basic Metabolic Panel; Complete Time: 02:24 ms3 06/11 01:27 Order name: CBC with Diff; Complete Time: 02:24 ms3 06/11 01:27 Order name: Magnesium; Complete Time: 02:24 ms3 06/11 01:27 Order name: NT PRO-BNP; Complete Time: 02:24 ms3 06/11 01:27 Order name: Troponin HS; Complete Time: 02:24 ms3 04 02:56 Order name: SARS RAPID; Complete Time: 04:50 tw5 06/11 01:27 Order name: XRAY Chest (1 view) ms3 04 01:27 Order name: EKG; Complete Time: 01:28 ms3 06/11 01:27 Order name: Cardiac monitoring; Complete Time: 01:38 ms3 06/11 01:27 Order name: EKG - Nurse/Tech; Complete Time: 01:46 ms3 06/11 01:27 Order name: IV Saline Lock; Complete Time: 01:38 ms3 06/11 01:27 Order name: Labs collected and sent; Complete Time: 01:46 ms3 06/11 01:27 Order name: O2 Per Protocol; Complete Time: 01:38 ms3 06/11 01:27 Order name: O2 Sat Monitoring; Complete Time: 01:38 ms3 EC:30 Rate is 63 beats/min. Rhythm is regular. QRS Lester is Normal. MO interval is normal. QRS ms3 interval is normal. QT interval is normal. Clinical impression: Normal ECG. Interpreted by me. Reviewed by me. Administered Medications: 02:39 Drug: Zofran (Ondansetron) 4 mg Route: IVP; Site: left antecubital; ll3 03:27 Follow up: Response: No adverse reaction as6 Disposition Summary: 06/11/22 03:04 Hospitalization Ordered Hospitalization Status: Observation ms3 Provider: Jim Dhillon ms3 Location: Telemetry/MedSurg (observation) ms3 Condition: Stable ms3 Problem: new ms3 Symptoms: are unchanged ms3 Bed/Room Type: Standard ms3 Room Assignment: 213(06/11/22 05:19) mw Diagnosis - Nausea with vomiting, unspecified ms3 - Shortness of breath ms3 - Anemia, unspecified ms3 Forms: - Medication Reconciliation Form ms3 - SBAR form ms3 Signatures: Dispatcher [employer] EDMS Naheed Ibarra RN RN mw Derek Crespo, DO ms3 Josef De Leon RN RN as6 Rocio Mcclain RN RN ll3 Stephanie Schumacher, PA-C PA-C sb4 Corrections: (The following items were deleted from the chart) 05:19 03:04 ms3 mw
--- NOTE | 2022-06-11 03:05 | ER ---
Nurse's Notes [facility] Name: Meseret Gallego Age: 67 yrs Sex: Female : 1955 Arrival Date: 06/11/2022 Time: : Bed 2 Private MD: Diagnosis: Nausea with vomiting, unspecified;Shortness of breath;Anemia, unspecified Presentation: 06/11 01:26 Chief complaint: EMS states: called out for shortness of breath. pt was not able to get as6 proper dialysis this week due to port not working. Coronavirus screen: At this time, the client does not indicate any symptoms associated with coronavirus-19. Ebola Screen: No symptoms or risks identified at this time. Initial Sepsis Screen: Does the patient meet any 2 criteria? No. Patient's initial sepsis screen is negative. Does the patient have a suspected source of infection? No. Patient's initial sepsis screen is negative. Risk Assessment: Do you want to hurt yourself or someone else? Patient reports no desire to harm self or others. Onset of symptoms was June 11, 2022. : Method Of Arrival: EMS: [facility] : Acuity: CHRISTOPHER 3 Historical: - Allergies: Codeine; Phenergan; Tape; - Home Meds: Lantus U-100 Insulin 100 unit/mL Sub-Q crtg [Active]; atorvastatin 40 mg oral tab 1 tab as6 once daily [Active]; metoprolol tartrate 50 mg Oral tab [Active]; Wellbutrin XL 150 mg Oral Tb24 1 tab once daily [Active]; amlodipine 10 mg tab 1 tab once daily [Active]; furosemide 80 mg oral tab 1 tab once daily [Active]; lisinopril 5 mg Oral tab 1 tab once daily [Active]; - PMHx: Diabetes - IDDM; Dialysis; Hypertension; Hypothyroidism; Hypercholesterolemia; as6 - PSHx: :29 section; knee; back; neck; as6 - Immunization history:: Client reports receiving the 2nd dose of the Covid vaccine, pfizer Flu vaccine is up to date. - Social history:: Smoking status: Patient denies any tobacco usage or history of. Screenin:39 Abuse screen: Denies threats or abuse. Denies injuries from another. Nutritional as6 screening: No deficits noted. Tuberculosis screening: No symptoms or risk factors identified. Fall Risk None identified. Assessment: 01:30 General: Appears in no apparent distress. Behavior is calm, cooperative. Pain: as6 Complains of pain in anterior aspect of left upper chest. Neuro: Level of Consciousness is awake, alert, obeys commands, Oriented to person, place, time, situation. Cardiovascular: Capillary refill < 3 seconds Patient's skin is warm and dry. Respiratory: Respiratory effort is even, labored, Breath sounds with crackles. GI: Abdomen is round. Vital Signs: 01:26 BP 105 / 45; Pulse 77; Resp 19 S; Temp 97.9(O); Pulse Ox 100% on 4 lpm NC; Weight as6 108.86 kg (R); Height 5 ft. 6 in. (167.64 cm) (R); Pain 8/10; 01:51 BP 86 / 73; Pulse 62; Resp 13; Pulse Ox 100% on NC; ll3 03:26 BP 101 / 60; Pulse 68; Resp 16 S; Pulse Ox 100% on 4 lpm NC; as6 05:18 BP 105 / 66; Pulse 71; Resp 17 S; Pulse Ox 100% on 4 lpm NC; as6 01:26 Body Mass Index 38.74 (108.86 kg, 167.64 cm) as6 ED Course: 01:26 Patient arrived in ED. ms3 01:26 Josef De Leon, PERRI is Primary Nurse. as6 01:26 Derek Crespo DO is Attending Physician. ms3 01:29 Triage completed. as6 01:38 Arm band placed on. as6 01:38 Bed in low position. Call light in reach. Side rails up X2. as6 01:38 Maintain EMS IV. Dressing intact. Good blood return noted. Site clean \T\ dry. Gauge \T\ as 6 site: 20g LAC. 02:08 XRAY Chest (1 view) In Process Unspecified. EDMS 03:04 Sudhakar Mendosa is Hospitalizing Provider. ms3 03:04 Hospitalizing Provider role handed off by Sudhakar Mendosa ms3 03:04 Jim Dhillon MD is Hospitalizing Provider. ms3 03:26 No provider procedures requiring assistance completed. Patient admitted, IV remains in as6 place. Administered Medications: 02:39 Drug: Zofran (Ondansetron) 4 mg Route: IVP; Site: left antecubital; ll3 03:27 Follow up: Response: No adverse reaction as6 Medication: 01:39 VIS not applicable for this client. as6 Outcome: 03:04 Decision to Hospitalize by Provider. ms3 03:26 Admitted to ER Hold. Please see [facility] for further documentation. as6 03:26 Condition: stable 03:26 Instructed on the need for admit. 05:45 Patient left the ED. as6 Signatures: Dispatcher [employer] EDMS Derek Crespo DO DO ms3 Josef De Leon RN RN as6 Rocio Mcclain RN RN ll3
--- NOTE | 2022-06-11 03:29 | P.HP ---
Certification for Inpatient Patient admitted to: Observation With expected LOS: <2 Midnights Patient will require the following post-hospital care: None Practitioner: I am a practitioner with admitting privileges, knowledge of patient current condition, hospital course, and medical plan of care. Services: Services provided to patient in accordance with Admission requirements found in Title 42 Section 412.3 of the Code of Federal Regulations Patient History Date of Service: 06/11/22 Reason for admission: ESRD, Volume Overload History of Present Illness: Patient is a 67 year old female with past medical history of ESRD on HD TTHSa, insulin dependent type 2 diabetes, and hypothyroidism who presented to the ED via EMS with complaints of shortness of breath. patient reports that she was unable to get HD on because her port was malfunctioning but was able to get 1L off on sunday (much less than her usual). Patient requiring supplemental O2 at this time. Rales noted in the lung bases. Labs today are significant for cr 5.69, BUN 68, BNP 7724, WBC 15.8, hgb 8.1. She is still requiring 4L NC at this time, does not require home O2. Patient is admitted for further management. Allergies codeine Allergy (Intermediate, Verified 09/03/20 22:00) Itching promethazine [From Phenergan] Allergy (Intermediate, Verified 09/03/20 22:00) Itching adhesive tape Adverse Reaction (Verified 09/03/20 22:00) Itching/Hives/Rash Home medications list reviewed: Yes Home Medications: Aspirin [Aspirin EC 325 MG] 325 mg PO BEDTIME 11/17/19 Atorvastatin Calcium [Lipitor] 20 mg PO BEDTIME 11/17/19 Bupropion *Xl* [Wellbutrin XL*] 150 mg PO DAILY 11/17/19 Cholecalciferol (Vitamin D3) [Vitamin D3] 25 mcg PO DAILY 11/17/19 Insulin Glargine,Hum.rec.anlog [Lantus Solostar] 45 units SQ BID 11/17/19 Insulin Lispro [Humalog Kwikpen U-100] 30 units SQ TIDWM 11/17/19 Metoprolol Succinate [Toprol Xl*] 50 mg PO BID 6AM 6PM #60 tab 11/25/19 Amlodipine Besylate 10 mg PO DAILY 09/03/20 Docusate Sodium [Stool Softener] 20 mg PO DAILY 09/03/20 Furosemide 160 mg PO DAILY 09/03/20 Lisinopril [Zestril] 5 mg PO DAILY 09/03/20 Loratadine [Claritin*] 10 mg PO BID 09/03/20 Multivitamin [Daily Miguelina] 1 each PO DAILY 09/03/20 Multivitamin/Iron/Folic Acid [Centrum Women Tablet] 1 each PO DAILY 09/03/20 Thyroxine 150 mg PO DAILY 09/03/20 Ondansetron [Zofran] 4 mg PO Q6H PRN #20 tab 10/20/21 Pantoprazole [Protonix Tab*] 40 mg PO BIDAC 30 Days #60 tab 10/20/21 Sucralfate [Carafate*] 1 gm PO ACHS 30 Days #120 tab 10/20/21 Sulfamethoxazole/Trimethoprim [Bactrim 400-80 mg Tablet] 1 each PO DAILY 8 Days #8 tablet 10/20/21 - Past Medical/Surgical History Diabetic: Yes -: IDDM -: Hypertension -: Hypothyroidism -: ESRD -: hyperlipidemia -: depression -: Back fusion -: bilateral total knee replacements -: bilateral carpal tunnel sx -: c section -: thyroidectomy -: neck fusion Psychosocial/ Personal History: Patient lives at home with her - Family History Mother -: Heart disease, Hypertension, Lung disease, Cancer Notes: breast ca Father -: Heart disease, Hypertension - Social History Smoking Status: Never smoker Alcohol use: No CD- Drugs: No Caffeine use: Yes Place of Residence: Home Review of Systems Respiratory: Shortness of Breath Physical Examination - Physical Exam General: Alert, In no apparent distress HEENT: Atraumatic, PERRLA, EOMI, Sclerae nonicteric Neck: Supple, 2+ carotid pulse no bruit, No LAD, Without JVD or thyroid abnormality Respiratory: Crackles/rales (lower lobes) Cardiovascular: Regular rate/rhythm, Normal S1 S2 Gastrointestinal: Normal bowel sounds, No tenderness Musculoskeletal: No tenderness Integumentary: No rashes Neurological: Normal speech, Normal strength at 5/5 x4 extr, Normal tone, Normal affect - Studies Laboratory Data (last 24 hrs) 06/11/22 01:42: WBC 15.80 H, Hgb 8.1 L, Hct 24.3 L, Plt Count 151 L 06/11/22 01:42: Sodium 137, Potassium 3.7, BUN 68 H, Creatinine 5.69 H*, Glucose 144 H, Magnesium 2.8 H Assessment and Plan - Problems (Diagnosis) (1) ESRD (end stage renal disease) Current Visit: Yes Status: Chronic (2) Volume overload Current Visit: Yes Status: Acute Qualifiers: Hypervolemia type: other Qualified Code(s): E87.79 - Other fluid overload (3) Type 2 diabetes mellitus Current Visit: Yes Status: Chronic Qualifiers: Diabetes mellitus intermediate accountant insulin use: with halfway use Diabetes mellitus complication status: with hyperglycemia Qualified Code(s): E11.65 - Type 2 diabetes mellitus with hyperglycemia; Z79.4 - FDC (current) use of insulin (4) Hypothyroidism Current Visit: Yes Status: Chronic Qualifiers: Hypothyroidism type: acquired Qualified Code(s): E03.9 - Hypothyroidism, unspecified (5) Anemia Current Visit: Yes Status: Acute Qualifiers: Anemia type: due to chronic kidney disease Chronic kidney disease stage: on chronic dialysis Qualified Code(s): N18.6 - End stage renal disease; D63.1 - Anemia in chronic kidney disease; Z99.2 - Dependence on renal dialysis - Plan Patient is admitted for observation. Nephrology consulted for HD, she sees Dr. Flores. Titrate O2 as needed. Wean when tolerable. Hemoglobin appears slightly below baseline, though could be secondary to volume overload. ACHS accu checks with mild sliding scale and renal diet. BP has been borderline. Monitor closely. Monitor and replete electrolytes per protocol. Reconcile and continue home medications. DVT prophylaxis Full code. Discharge Plan: Home Plan to discharge in: 24 Hours - Advance Directives Does patient have a Living Will: Yes Does patient have a Durable POA for Healthcare: Yes - Code Status/Comfort Care Code Status Assessed: Yes Code Status: Full Code Physician Review: Patient Assessed, Agree with Above Assessment and Plan Critical Care: No Time Spent Managing Pts Care (In Minutes): 50
[2022-06-11 04:47] LABS: SARS-CoV-2 Antigen Rapid Res Negative (Negative)
[2022-06-11] MEDS: ACETAMINOPHEN 325 MG TABLET PO PRN ×2 (06:08→20:16)
[2022-06-11] MEDS: INSULIN -REGULAR HUMAN 50 UNIT/0.5 ML ML SQ SCH ×4 (07:30→20:24)
[2022-06-11] MEDS ORDERED: POTASSIUM CL SA 10 MEQ TAB PO ONE (09:00)
[2022-06-11] MEDS ORDERED: PNEUMOCOCCAL VACCINE 0.5 ML IMVAC ONE (10:00)
--- NOTE | 2022-06-11 11:56 | P.CNS ---
Date of Consult: 06/11/22 Reason for Consult: ESRd , fluid overload Chief Complaint: ESRD, Volume Overload History of Present Illness: A 67 year old female with past medical history of ESRD on HD TTHSa,non compliant with HD , DM , HTN and hypothyroidism Pt presented with SOB , pt is non compliant with HD , she skip her treatment and or shorten her treatment time on , catheter was malfunctioning ,cathetr exchanged At [facility] and Pt had HD yesterday as per her, still she continues to have labored breathing and came to ER in ER cr 5.69, BUN 68, BNP 7724, WBC 15.8, hgb 8.1. requiring 4L NC at this time ROS General : denies fever, chills, WT change weakness, insomnia HEENT: Denies dry, vision changes and headache Resp: SOB, denied cough or wheezes Cardiovascular: denied chest pain, palpitation GI: denies abdominal pain, diarrhea or constipation : denies dysuria, urgency, foamy urine or blood tinged urine Musculoskeletal: denies muscle aches, joint pain Endo: denies polyuria and and polydipsia Extre: denies pain numbness , have swelling Physical exam General: AAOx3, , obese HEENT PERRLA, moist mucose membrane neck: supple, no elevated JVD CHEST; basal rales HEART : RRR. Normal S1,2 no murmur or rub Abd: soft, Nt Ext: edema Skin : No rash A/P ESRD on HD TTSat Hd tomorrow Renal diet Monitor renal panel # Anemia of chronic disease Will start on epogen # Htn Cont Home med Low salt diet # Volume overload Hd tomorrow Will start on Lasix low salt diet Total time spent 65 minutes including documentation, reviewing labs , placing orders and discussing with medical team Allergies codeine Allergy (Intermediate, Verified 09/03/20 22:00) Itching promethazine [From Phenergan] Allergy (Intermediate, Verified 09/03/20 22:00) Itching adhesive tape Adverse Reaction (Verified 09/03/20 22:00) Itching/Hives/Rash Home Medications: Aspirin [Aspirin EC 325 MG] 325 mg PO BEDTIME 11/17/19 Atorvastatin Calcium [Lipitor] 20 mg PO BEDTIME 11/17/19 Insulin Glargine,Hum.rec.anlog [Lantus Solostar] 45 units SQ BID 11/17/19 Insulin Lispro [Humalog Kwikpen U-100] 30 units SQ TIDWM 11/17/19 Metoprolol Succinate [Toprol Xl*] 50 mg PO BID 6AM 6PM #60 tab 11/25/19 Amlodipine Besylate 10 mg PO DAILY 09/03/20 Docusate Sodium [Stool Softener] 50 mg PO DAILY 09/03/20 Furosemide 160 mg PO DAILY 09/03/20 Lisinopril [Zestril] 5 mg PO DAILY 09/03/20 Loratadine [Claritin*] 10 mg PO BID 09/03/20 Multivitamin [Daily Miguelina] 1 each PO DAILY 09/03/20 Multivitamin/Iron/Folic Acid [Centrum Women Tablet] 1 each PO DAILY 09/03/20 Ondansetron [Zofran] 4 mg PO Q6H PRN #20 tab 10/20/21 Pantoprazole [Protonix Tab*] 40 mg PO BIDAC 30 Days #60 tab 10/20/21 Sucralfate [Carafate*] 1 gm PO ACHS 30 Days #120 tab 10/20/21 Buspirone HCl [Buspar] 5 mg PO BID 06/11/22 Cephalexin [Keflex] 500 mg PO BID 06/11/22 Cholecalciferol (Vitamin D3) [Vitamin D3] 25 mcg PO DAILY 06/11/22 Famotidine [Pepcid] 40 mg PO BEDTIME 06/11/22 Levothyroxine Sodium 150 mcg PO DAILY 06/11/22 - Past Medical/Surgical History Diabetic: Yes -: IDDM -: Hypertension -: Hypothyroidism -: ESRD -: hyperlipidemia -: depression -: Paralyzed Stomach -: Neuropathy -: Back fusion -: bilateral total knee replacements -: bilateral carpal tunnel sx -: c section -: thyroidectomy -: neck fusion -: PD Cath then removed -: Cholecystectomy Psychosocial/ Personal History: Patient lives at home with her - Family History Mother Medical History: Heart disease, Hypertension, Lung disease, Cancer Notes: breast ca Father Medical History: Heart disease, Hypertension, Other (see notes) Notes: Alzheimer's - Social History Alcohol use: No CD- Drugs: No Caffeine use: Yes Place of Residence: Home Physical Examination Temp Pulse Resp BP Pulse Ox 97.1 F 63 14 91/55 L 96 12/04/22 07:40 06/11/22 07:40 06/11/22 07:40 06/11/22 07:40 06/11/22 07:40 Laboratory Data (last 24 hrs) 06/11/22 01:42: WBC 15.80 H, Hgb 8.1 L, Hct 24.3 L, Plt Count 151 L 06/11/22 01:42: Sodium 137, Potassium 3.7, BUN 68 H, Creatinine 5.69 H*, Glucose 144 H, Magnesium 2.8 H
[2022-06-11] MEDS ORDERED: EPOETIN 4,000 UNIT/ML VIAL IV SCH (12:00)
[2022-06-11] MEDS: FUROSEMIDE 40 MG/4 ML VIAL IV SCH ×2 (13:00→20:17)
[2022-06-11] MEDS ORDERED: FAMOTIDINE 20 MG TAB PO ONE (22:25)
[2022-06-11] MEDS: DIPHENHYDRAMINE 25 MG TAB/CAP PO PRN (22:32)
[2022-06-11] MEDS: METOCLOPRAMIDE 10 MG/2mL INJ IV SCH (23:48)
[2022-06-12] MEDS: ACETAMINOPHEN 325 MG TABLET PO PRN ×2 (02:03→20:46)
[2022-06-12 05:08] LABS: Potassium 4.5 mmol/L (3.5-5.1)
[2022-06-12] MEDS: METOPROLOL XL 50 MG TAB PO SCH ×2 (05:18→17:41)
[2022-06-12] MEDS ORDERED: AMLODIPINE 10 MG TAB PO SCH (09:00)
[2022-06-12] MEDS: lisinopriL 5 MG TAB PO SCH (09:00)
[2022-06-12] MEDS: INSULIN -REGULAR HUMAN 50 UNIT/0.5 ML ML SQ SCH ×4 (09:11→21:05)
[2022-06-12] MEDS: PANTOPRAZOLE 40MG TABLET PO SCH ×2 (09:11→16:49)
[2022-06-12] MEDS: FUROSEMIDE 40 MG/4 ML VIAL IV SCH ×2 (09:11→20:46)
[2022-06-12] MEDS: BUSPIRONE HCL 5 MG TABLET PO SCH ×2 (09:11→20:46)
--- NOTE | 2022-06-12 13:21 | P.DS ---
Discharge Date: 06/12/22 Disposition: ROUTINE DISCHARGE Discharge Condition: GOOD Reason for Admission: ESRD, Volume Overload Brief History of Present Illness: Patient is a 67 year old female with past medical history of ESRD on HD TTHSa, insulin dependent type 2 diabetes, and hypothyroidism who presented to the ED via EMS with complaints of shortness of breath. patient reports that she was unable to get HD on because her port was malfunctioning but was able to get 1L off on sunday (much less than her usual). Patient requiring supplemental O2 at this time. Rales noted in the lung bases. Labs today are significant for cr 5.69, BUN 68, BNP 7724, WBC 15.8, hgb 8.1. She is still requiring 4L NC at this time, does not require home O2. Patient is admitted for further management. Hospital Course: Doing well. We will arrange for home oxygen. Patient will be dialyzed once again today. After hemodialysis patient should be stable for discharge once we arrange for home oxygen. Vital Signs/Physical Exam: Temp Pulse Resp BP Pulse Ox 96.6 F L 87 18 118/75 94 06/12/22 08:00 06/12/22 09:11 06/12/22 08:00 06/12/22 09:11 06/12/22 08:00 General: Alert, In no apparent distress, Oriented x3 Laboratory Data at Discharge: WBC 15.80 K/uL (4.3-10.9) H 06/11/22 01:42 Hgb 8.1 g/dL (12.0-15.0) L 06/11/22 01:42 Hct 24.3 % (36.0-45.0) L 06/11/22 01:42 Plt Count 151 K/uL (152-406) L 06/11/22 01:42 Sodium 134 mmol/L (136-145) L 06/12/22 04:28 Potassium 4.5 mmol/L (3.5-5.1) D 06/12/22 04:28 BUN 85 mg/dL (7-18) H 06/12/22 04:28 Creatinine 7.16 mg/dL (0.55-1.3) H* 06/12/22 04:28 Glucose 149 mg/dL (74-106) H 06/12/22 04:28 Magnesium 2.8 mg/dL (1.8-2.4) H 06/11/22 01:42 Home Medications: Aspirin [Aspirin EC 325 MG] 325 mg PO BEDTIME 11/17/19 Atorvastatin Calcium [Lipitor] 20 mg PO BEDTIME 11/17/19 Insulin Glargine,Hum.rec.anlog [Lantus Solostar] 45 units SQ BID 11/17/19 Insulin Lispro [Humalog Kwikpen U-100] 30 units SQ TIDWM 11/17/19 Metoprolol Succinate [Toprol Xl*] 50 mg PO BID 6AM 6PM #60 tab 11/25/19 Amlodipine Besylate 10 mg PO DAILY 09/03/20 Docusate Sodium [Stool Softener] 50 mg PO DAILY 09/03/20 Furosemide 160 mg PO DAILY 09/03/20 Lisinopril [Zestril] 5 mg PO DAILY 09/03/20 Loratadine [Claritin*] 10 mg PO BID 09/03/20 Multivitamin [Daily Miguelina] 1 each PO DAILY 09/03/20 Multivitamin/Iron/Folic Acid [Centrum Women Tablet] 1 each PO DAILY 09/03/20 Ondansetron [Zofran (Odt)*] 4 mg PO Q6H PRN #20 tab 10/20/21 Pantoprazole [Protonix Tab*] 40 mg PO BIDAC 30 Days #60 tab 10/20/21 Sucralfate [Carafate*] 1 gm PO ACHS 30 Days #120 tab 10/20/21 Buspirone HCl [Buspar*] 5 mg PO BID 06/11/22 Cephalexin [Keflex*] 500 mg PO BID 06/11/22 Cholecalciferol (Vitamin D3) [Vitamin D3] 25 mcg PO DAILY 06/11/22 Famotidine [Pepcid] 40 mg PO BEDTIME 06/11/22 Levothyroxine Sodium 150 mcg PO DAILY 06/11/22 Physician Discharge Instructions: -DC IV and DC home -Follow-up with PCP in 1 to 2 weeks -Follow-up with Nephrology in 1 to 2 weeks -Please call Dr. Dhillon at [phone] if any questions regarding hospital stay -Please call nursing station at [phone] if any nursing or medication questions -Return to the emergency room if symptoms worsen Diet: Renal Activity: Fall precautions Followup: Unknown,U [Primary Care Provider] - Time spent managing pt's care (in minutes): 35
--- NOTE | 2022-06-12 13:49 | EKG ---
Test Date: 2022-06-11 Test Time: 01:50:39 Livestock Showman: DOMINIK MEASUREMENT RESULTS: Intervals: Rate: 63 NC: 160 QRSD: 98 QT: 428 QTc: 437 [place]: P: 55 NC: 160 QRS: 3 T: 36 INTERPRETIVE STATEMENTS: Normal sinus rhythm Normal ECG Compared to ECG 10/15/2021 15:43:22 Sinus bradycardia no longer present Myocardial infarct finding no longer present Electronically Signed On 06-12-22 13:47:00 LIBRARIAN HELPER by Imer Lantigua
--- NOTE | 2022-06-12 14:04 | RAD REPORT ---
EXAM DESCRIPTION: RAD - Chest Single View - 06/11/2022 2:06 am CLINICAL HISTORY: 7 years Female, DYSPNEA COMPARISON: Chest radiograph dated 10/14/2021 IMPRESSION: Left IJ hemodialysis catheter. Chronic lung changes. Bilateral interstitial opacities concerning for pneumonia. No pleural effusion. No pneumothorax. Cardiomediastinal silhouette is enlarged. No acute osseous abnormality. Electronically signed by: Jeffrey Saucedo DO 06/11/2022 2:37 AM SENIOR BUSINESS BROKER Due to temporary technical issues with the PACS/Fluency reporting system, reports are being signed by the in house radiologists without review as a courtesy to insure prompt reporting. The interpreting radiologist is fully responsible for the content of the report.
[2022-06-12] MEDS ORDERED: ATORVASTATIN 20 MG TAB PO SCH (21:00)
--- NOTE | 2022-06-12 21:36 | P.PN ---
Date of Service: 06/12/22 Subjective patient was found to be hypoxic. Even after hemodialysis she does drop her sats on ambulation. She is about 88% on room air at rest. Will arrange for home oxygen. Outpatient sleep study. She need to be compliant with her hemodialysis. Physical Examination - Physical Exam General: Alert, In no apparent distress HEENT: WNL; Respiratory: Diminished Cardiovascular: Regular rate/rhythm, Normal S1 S2 Gastrointestinal: Normal bowel sounds, No tenderness Neurological: No focal deficits Assessment and Plan - Problems (Diagnosis) (1) ESRD (end stage renal disease)/Volume overload Current Visit: Yes Status: Acute (2) Be obesity hypoventilation syndrome/ chronic respiratory failure with hypoxemia Current Visit: Yes Status: Acute (3) Type 2 diabetes mellitus Current Visit: Yes Status: Chronic Qualifiers: Diabetes mellitus terminal gauger supervisor insulin use: with assisted use Diabetes mellitus complication status: with hyperglycemia Qualified Code(s): E11.65 - Type 2 diabetes mellitus with hyperglycemia; Z79.4 - exterminator termite (current) use of insulin (4) Hypothyroidism Current Visit: Yes Status: Chronic Qualifiers: Hypothyroidism type: acquired Qualified Code(s): E03.9 - Hypothyroidism, unspecified (5) Anemia Current Visit: Yes Status: Acute Qualifiers: Anemia type: due to chronic kidney disease Chronic kidney disease stage: on chronic dialysis Qualified Code(s): N18.6 - End stage renal disease; D63.1 - Anemia in chronic kidney disease; Z99.2 - Dependence on renal dialysis - Plan 1. Check room air O2 sats. If less than 89% arrange for home oxygen 2. Patient needs outpatient sleep study 3. Hemodialysis per nephrology 3. Strict blood pressure and blood sugar control 5. Patient has been noncompliant with her dialysis and her blood pressure has been little on the low side so will adjust her blood pressure medications. She needs to try to become more compliant with her treatments going forward. 6. Outpatient Nephrology follow-up 7. Gi DVT prophylaxis
[2022-06-12] MEDS ORDERED: FAMOTIDINE 20 MG TAB PO ONE (22:07)
--- NOTE | 2022-06-12 22:33 | PN ---
Date of Progress Note: 06/12/2022 Chief Complaint: Congestive heart failure exacerbation, fluid overload, anasarca, and end-stage gera l disease. Subjective: Patient is a 67-year-old woman with history of end-stage renal disease on Sunday, , and Sunday. The patient has history of noncompliance with dialysis schedule. She missed estrella ral dialysis treatments and came to the hospital because of shortness of breath. The patient has res piratory failure and she received dialysis yesterday for severe fluid overload. Patient is scheduled to have dialysis today. Patient remains on O2 nasal cannula. BNP [place] 7724. The patient was found to have elevated white count up to 15.8. Review of Systems: Denies fever or chills. Physical Examination: Lungs: Clear to auscultation bilaterally. Heart: S1, S2. Abdomen: Soft. Extremities: Edema present in both legs. Impression And Plan: 1.End-stage disease. Continue dialysis. Patient will have extra dialysis today and subsequently pa nata will continue TTS schedule. Renal diet was recommended. Patient has history of fluid overload . Patient needs to continue low-sodium diet. 2.Anemia of chronic disease. Continue XENIA. Monitor hemoglobin level. 3.Volume overload. Patient was started on Lasix. Ultrafiltration will be advanced with dialysis as needed. 4.Hypertension. Continue blood pressure medication. FREDDY/RENÉ Voice ID: [id number] Report ID: [id number]
[2022-06-12] MEDS: METOCLOPRAMIDE 10 MG/2mL INJ IV SCH (23:02)
[2022-06-13] MEDS: ACETAMINOPHEN 325 MG TABLET PO PRN (01:45)
[2022-06-13] MEDS: METOPROLOL XL 25 MG TAB PO SCH ×2 (06:34→17:57)
[2022-06-13] MEDS: INSULIN -REGULAR HUMAN 50 UNIT/0.5 ML ML SQ SCH ×4 (07:30→20:28)
[2022-06-13 07:41] LABS: Potassium 4.4 mmol/L (3.5-5.1)
[2022-06-13] MEDS: lisinopriL 5 MG TAB PO SCH (09:00)
[2022-06-13] MEDS: FUROSEMIDE 40 MG/4 ML VIAL IV SCH (09:00)
[2022-06-13] MEDS: BUSPIRONE HCL 5 MG TABLET PO SCH ×2 (09:24→20:27)
[2022-06-13] MEDS: PANTOPRAZOLE 40MG TABLET PO SCH ×2 (09:24→16:30)
[2022-06-13] MEDS: CEFTRIAXONE 1,000 MG in NA CHLORIDE 0.9% 50 ML IVPB SCH (10:00)
[2022-06-13 10:13] LABS: Absolute Lymphocytes (CBC) 0.6 K/uL (0.7-4.9); Hematocrit 25.5 % (36.0-45.0); Lymphocytes % 4.3 % (15.3-44.8); MCV 95.9 fL (80-100); MPV 8.1 fL (7.6-11.3); RBC Red Blood Cell Count 2.66 M/uL (3.86-4.86)
--- NOTE | 2022-06-13 10:33 | RAD REPORT ---
EXAM DESCRIPTION: CT - Thorax Wo Con CLINICAL HISTORY: Chest pain Possible pneumonia COMPARISON: Chest Single View dated 06/11/2022 FINDINGS: Mild ground-glass opacities are present bilaterally. Mild linear opacities are present bot h lung bases, greater on the right, likely subsegmental atelectasis. There is a small right pleural e ffusion noted. Trace pericardial fluid. No pneumothorax. Mildly prominent lymph nodes in the mediastinum likely reactive in nature. No concerning bony finding. Liver size is prominent. A small amount of fluid is seen adjacent to the right lobe of the liver. All CT scans are performed using dose optimization technique as appropriate and may include automated exposure control or mA/KV adjustment according to patient size. IMPRESSION: Mild CHF versus volume overload pattern suspected.No infiltrate seen typical of pneumoni a. Small right pleural effusion.
[2022-06-13 10:45] LABS: Albumin 2.5 g/dL (3.4-5.0); Bilirubin Total 1.1 mg/dL (0.2-1.0); Potassium 4.8 mmol/L (3.5-5.1); Protein, Total 6.5 g/dL (6.4-8.2)
[2022-06-13] MEDS: AZITHROMYCIN IV 500 MG in NA CHLORIDE 0.9% 250 ML IVPB SCH (12:05)
[2022-06-13] MEDS ORDERED: Ringers Lactate 500 ML IV ONE (13:00)
[2022-06-13] MEDS ORDERED: Ringers Lactate 500 ML IV SCH (13:00)
[2022-06-13] MEDS: DOCUSATE NA 100 MG CAP PO SCH ×2 (13:24→20:28)
[2022-06-13] MEDS: ALBUMIN HUMAN 25% 100 ML IV ONE ×2 (16:00)
--- NOTE | 2022-06-13 16:25 | PN ---
Date of Progress Note: 06/13/2022 Subjective: The patient was admitted with malfunctioned hemodialysis catheter, over volume. The patient has been dialyzed on a daily basis. The patient still complaining from shortness of breath. The patient had dialysis yesterday, we managed to remove 2 L. The patient known for noncompliance and poor tolerance of dialysis. The patient was tried on peritoneal dialysis, but because of the difficulty in her hand movement, could not continue. Physical Examination: Vital Signs: When I saw the patient; blood pressure 102/56, pulse of 71, afebrile. Chest: Crackles bilateral. Heart S1, S2. Systolic murmur. Abdomen: Soft, nontender. Extremity: +1 edema. Neuro: Alert. Has faint resting tremor. Laboratory Data: CT showing over volume. Chest x-ray; cardiomegaly with congestion. Hemoglobin 8.3. Sodium 132, potassium 4.8, bicarb 24, BUN 64, creatinine 6.2, calcium 8.2, albumin of 2.5. Current Medications: The patient on include lisinopril 5 mg daily, metoprolol 25 b.i.d., Lasix 80 b.i.d., pantoprazole. Assessment And Plan: 1. End-stage renal disease with over volume and hyponatremia. I am going to continue on a daily dialysis for the patient. We will do session of today. This is her regular dialysis, then tomorrow we will do on other sequential to establish better volume control. 2. Hypertension. Blood pressure on the lower side. We will try to utilize blood pressure for more ultrafiltration. Discontinue lisinopril and we will follow up. I am going to change the Lasix to Bumex given the hypoalbuminemia. 3. Anemia of chronic kidney disease. Resume XENIA. 4. Secondary hyperparathyroidism. We will check on the phosphorus. 5. Congestive heart failure with exacerbation. We will try to establish better volume control with the patient with daily dialysis. 6. Malfunctioned hemodialysis catheter, status post placement. We will follow up. Time spent examining the patient [id number] placing order reviewing data lab and radiology discussing the case with the patient discussing the case with the team psychologist nursing staff and hospitalist more than 35-minute MA/MODL Voice ID: [id number] Report ID: [id number] MTDD
[2022-06-13] MEDS: EPOETIN ALFA 10,000 UNIT/ML VIAL IV SCH (18:00)
--- NOTE | 2022-06-13 19:06 | P.PN ---
Subjective Date of Service: 06/13/22 Chief Complaint: ESRD, Volume Overload No acute events overnight. She reports that her shortness of breath is persistent and appears to be worsening. She denies any chest pain or palpitations. Review of Systems 10-point ROS is otherwise unremarkable Respiratory: Cough, Dry, SOB with Excertion Physical Examination - Vital Signs Temperature: 98.0 F Blood Pressure: 104/51 Pulse: 70 Respirations: 16 Pulse Ox (%): 96 - Physical Exam General: Alert, In no apparent distress, Oriented x3 HEENT: Atraumatic, Mucous membr. moist/pink, EOMI, Sclerae nonicteric Neck: JVD not distended Respiratory: Clear to auscultation bilaterally, Normal air movement Cardiovascular: Normal pulses, Regular rate/rhythm, No gallops, No rubs, No murmurs Gastrointestinal: Normal bowel sounds, Soft and benign, Non-distended, No tenderness, No rebound, No guarding Musculoskeletal: No clubbing Integumentary: No rashes Neurological: Normal speech, Cranial nerves 3-12 intact, Normal affect Assessment And Plan - Plan # Concern for Sepsis secondary to Bilateral Community-Acquired Pneumonia She was discharged yesterday, but states that her breathing has worsened. Discharge has been cancelled. - Chest x-ray = "Left IJ hemodialysis catheter. Chronic lung changes. Bilateral interstitial opacities concerning for pneumonia. No pleural effusion. No pneumothorax. Cardiomediastinal silhouette is enlarged. No acute osseous abnormality." She meets sepsis criteria based on HR > 90 bpm, RR > 20 breaths/min, and WBC > 12,000, and the suspected source is pneumonia. - Sepsis order set was initiated - Initial Lactate was requested - Blood cultures drawn before antibiotics were given - Broad spectrum antibiotics started: Ceftriaxone + Azithromycin - In regards to fluids: - 30 mL/kg of IV fluids was not administered given SBP > 90, MAP > 65, and concern for volume overload from ESRD - Ordered CBC, CMP, CT chest # Hypervolemia in End-Stage Renal Disease on intermittent Hemodialysis # Anemia of Chronic Kidney Disease - Nephrology consulted - recommendations appreciated - Continue home bumetanide # Deconditioning - Consulted PT # Type II Diabetes Mellitus - Correction scale insulin # Hypothyroidism - Continue home levothyrxine Abran An M.D.
[2022-06-13] MEDS: BUMETANIDE 1 MG TABLET PO SCH (20:27)
--- NOTE | 2022-06-13 20:51 | RAD REPORT ---
EXAM DESCRIPTION: US - Liver Only - 06/13/2022 8:22 pm CLINICAL HISTORY: Elevated liver function test enzymes COMPARISON: None FINDINGS: The liver appears mildly enlarged. Echotexture is normal. No lesion is visualized. Biliary tree is normal caliber IMPRESSION: Mild hepatomegaly
[2022-06-13] MEDS ORDERED: LACTULOSE 20 GM/30 ML UCUP PO ONE (21:00)
[2022-06-13] MEDS: METOCLOPRAMIDE 10 MG/2mL INJ IV SCH (21:24)
[2022-06-14] MEDS ORDERED: LACTULOSE 20 GM/30 ML UCUP PO ONE (00:45)
[2022-06-14 03:56] LABS: Absolute Lymphocytes (CBC) 0.7 K/uL (0.7-4.9); Hematocrit 25.6 % (36.0-45.0); MCV 95.4 fL (80-100); MPV 7.9 fL (7.6-11.3); RBC Red Blood Cell Count 2.68 M/uL (3.86-4.86)
[2022-06-14 04:38] LABS: Albumin 2.7 g/dL (3.4-5.0); Bilirubin Total 1.4 mg/dL (0.2-1.0); Phosphorus 5.1 mg/dL (2.5-4.9); Potassium 4.5 mmol/L (3.5-5.1); Protein, Total 6.7 g/dL (6.4-8.2)
[2022-06-14] MEDS: METOPROLOL XL 25 MG TAB PO SCH ×2 (05:34→17:58)
[2022-06-14] MEDS: DOCUSATE NA 100 MG CAP PO SCH ×2 (08:38→20:25)
[2022-06-14] MEDS: LEVOTHYROXINE SOD 0.075 MG TAB PO SCH (08:38)
[2022-06-14] MEDS: BUSPIRONE HCL 5 MG TABLET PO SCH ×2 (08:38→20:25)
[2022-06-14] MEDS: BUMETANIDE 1 MG TABLET PO SCH ×2 (08:38→20:25)
[2022-06-14] MEDS: PANTOPRAZOLE 40MG TABLET PO SCH ×2 (08:38→17:00)
[2022-06-14] MEDS: INSULIN -REGULAR HUMAN 50 UNIT/0.5 ML ML SQ SCH ×5 (08:45→20:25)
[2022-06-14] MEDS: CEFTRIAXONE 1,000 MG in NA CHLORIDE 0.9% 50 ML IVPB SCH (08:47)
[2022-06-14] MEDS: AZITHROMYCIN IV 500 MG in NA CHLORIDE 0.9% 250 ML IVPB SCH (08:48)
[2022-06-14 10:41] LABS: Protime INR 1.48
[2022-06-14 10:59] LABS: Troponin High Sensitivity 32.6 pg/mL (<58.9)
[2022-06-14] MEDS: EPOETIN ALFA 10,000 UNIT/ML VIAL IV SCH (12:15)
--- NOTE | 2022-06-14 12:39 | RAD REPORT ---
EXAM DESCRIPTION: RAD - Chest Single View - 06/14/2022 12:24 pm CLINICAL HISTORY: COPD COMPARISON: Portable 06/11/2022, 10/14/2021 and 09/03/2020 TECHNIQUE: AP portable chest image was obtained 06/14/2022 12:24 pm . FINDINGS: Lung volumes are low. No peripheral mass or consolidation. Low lung volumes accentuate hea rt, vasculature and lung markings. The pace enhanced baseline prominent interstitial opacification. V asculature and lung markings appear slightly increased from comparison. Cardiac silhouette is enlarged partly due to shallow inspiration portable imaging. Trachea is midline . Left-sided hemodialysis catheter is in place. No measurable pleural effusion and no pneumothorax. N o acute bony abnormality seen. No acute aortic findings suspected. IMPRESSION: Mild CHF/volume overload pattern superimposed on COPD.
--- NOTE | 2022-06-14 14:19 | PN ---
Date of Progress Note: 06/14/2022 Subjective: The patient was admitted with malfunctioned hemodialysis catheter. The patient was because of poor compliance. Yesterday, we tried to do treatment. The patient shortened her treatment by half an hour. We managed to remove only 1 L. Physical Examination: Vital Signs: Blood pressure 131/69, pulse of 77, afebrile. Chest: Clear to auscultation. Heart: S1, S2. Systolic murmur. Abdomen: Soft, nontender. Extremity: No edema. Neurologic: Alert. No focality. No tremor. Laboratory Data: Hemoglobin 8.4. Sodium 134, potassium 4.5, bicarb 26, BUN 55, creatinine 5.4, GFR of 8, calcium 8.5, phosphorus 5.1, AST 624, ALT 443, alkaline phosphatase 617, albumin of 2.7. Corrected calcium is 9.7. Current Medications: The patient on include; 1. Azithromycin. 2. Ceftriaxone. 3. Epogen. 4. Metoprolol 25 b.i.d. 5. Phosphorus. 6. Tylenol. 7. Bumex. 8. Pantoprazole. 9. Levothyroxine. 10. Docusate. Assessment And Plan: 1. End-stage renal disease with over volume, being dialyzed on a daily basis, poor compliant. I am going to go ahead and get repeated chest x-ray today for better evaluation of the fluid status for the patient and depending on that, we will decide if the patient is going to need sequential today or not. 2. Hypertension, controlled, optimal. We will keep to utilize blood pressure for more ultrafiltration. 3. Anemia of chronic kidney disease. Continue XENIA. 4. Secondary hyperparathyroidism. Calcium and phosphorus on the goal. No need for binder. 5. Over volume secondary to renal failure. We will continue with dialysis as above. 6. Hyponatremia, dilutional, secondary to renal failure. Will be corrected with dialysis. Time spent examining the patient [id number] placing order reviewing data lab and radiology discussing the case with the patient discussing the case with the steam box tender nursing staff and hospitalist more than 35-minute CR Voice ID: [id number] Report ID: [id number] [facility] HEALTHNataly
--- NOTE | 2022-06-14 19:35 | P.PN ---
Subjective Date of Service: 06/14/22 Chief Complaint: ESRD, Volume Overload No acute events overnight. She reports that her shortness of breath is persistent, but is unchanged compared to yesterday. She denies any chest pain, abdominal pain, nausea, vomiting, or palpitations. Review of Systems 10-point ROS is otherwise unremarkable Respiratory: Shortness of Breath, SOB with Excertion Physical Examination - Vital Signs Temperature: 98.0 F Blood Pressure: 118/70 Pulse: 74 Respirations: 18 Pulse Ox (%): 96 Assessment And Plan - Plan - Physical Exam General: Alert, In no apparent distress, Oriented x3 HEENT: Atraumatic, Mucous membr. moist/pink, EOMI, Sclerae nonicteric Neck: JVD not distended Respiratory: Clear to auscultation bilaterally, Normal air movement Cardiovascular: Normal pulses, Regular rate/rhythm, No gallops, No rubs, No murmurs Gastrointestinal: Normal bowel sounds, Soft and benign, Non-distended, No tenderness, No rebound, No guarding Musculoskeletal: No clubbing Integumentary: No rashes Neurological: Normal speech, Cranial nerves 3-12 intact, Normal affect # Suspect Acute Decompensated Congestive Heart Failure with Unknown Ejection Fraction Chest x-ray initially suggestive of pneumonia; however, CT chest argues against pneumonia. Suspect chest x-ray findings represent pulmonary edema. - Chest x-ray = "Left IJ hemodialysis catheter. Chronic lung changes. Bilateral interstitial opacities concerning for pneumonia. No pleural effusion. No pneumothorax. Cardiomediastinal silhouette is enlarged. No acute osseous abnormality." - CT chest = "mild CHF versus volume overload pattern suspected.No infiltrate seen typical of pneumonia. Small right pleural effusion." - Volume will need to be removed via hemodialysis - plan for dialysis today - Discontinue ceftriaxone + azithromycin - Transthoracic echocardiogram ordered - Daily weights - Strict I/O - 1.5 L fluid restriction, 2 g Na restriction # Elevated LFTs - concern for Acute Hepatitis vs Acute Liver Injury - Consulted Gastroenterology and spoke with Dr. Peres - recommendations appreciated - Leading differential diagnoses at this time is congestive hepatopathy - Avoid hepatotoxic medications - Limit acetaminophen - Ordered acetaminophen level, and urine drug screen - Transthoracic echocardiogram ordered - Liver ultrasound = "mild hepatomegaly" - Ordered PT/INR - Ordered HAV IgM, HBsAg, HbsAb, HBcAb, and HCV serologies # Hypervolemia in End-Stage Renal Disease on intermittent Hemodialysis # Anemia of Chronic Kidney Disease - Nephrology consulted - recommendations appreciated - Continue home bumetanide # Deconditioning - Consulted PT # Type II Diabetes Mellitus - Correction scale insulin # Hypothyroidism - Continue home levothyrxine Abran An M.D.
[2022-06-14] MEDS: METOCLOPRAMIDE 10 MG/2mL INJ IV SCH (20:26)
[2022-06-14] MEDS ORDERED: MORPHINE 2 MG/ML SYR IV ONE (22:40)
[2022-06-15 03:53] LABS: Protime INR 1.58
[2022-06-15 04:22] LABS: Albumin 2.8 g/dL (3.4-5.0); Bilirubin Direct 0.9 mg/dL (0-0.2); Bilirubin Total 1.4 mg/dL (0.2-1.0); Phosphorus 6.4 mg/dL (2.5-4.9); Potassium 4.9 mmol/L (3.5-5.1); Protein, Total 6.9 g/dL (6.4-8.2)
[2022-06-15] MEDS: METOPROLOL XL 25 MG TAB PO SCH ×2 (05:28→17:30)
--- NOTE | 2022-06-15 05:45 | EKG ---
Test Date: 2022-06-14 Test Time: 10:44:13 Riddler Operator: TAYLOR MEASUREMENT RESULTS: Intervals: Rate: 74 ME: 150 QRSD: 98 QT: 452 QTc: 501 [place]: P: 62 ME: 150 QRS: 30 T: 6 INTERPRETIVE STATEMENTS: Normal sinus rhythm Low voltage QRS Nonspecific T wave abnormality Prolonged QT Abnormal ECG Compared to ECG 06/11/2022 01:50:39 Low QRS voltage now present T-wave abnormality now present Prolonged QT interval now present Electronically Signed On 06-15-22 05:44:35 SUPERVISOR FIREARMS by William Uribe
[2022-06-15] MEDS ORDERED: ACETYLCYST 6,000 MG/30 ML VIAL PO SCH ×2 (08:00→13:00)
[2022-06-15] MEDS: BUSPIRONE HCL 5 MG TABLET PO SCH ×2 (08:36→22:03)
[2022-06-15] MEDS: BUMETANIDE 1 MG TABLET PO SCH ×2 (08:37→22:02)
[2022-06-15] MEDS: DOCUSATE NA 100 MG CAP PO SCH ×2 (08:37→21:00)
[2022-06-15] MEDS: PANTOPRAZOLE 40MG TABLET PO SCH ×2 (08:37→17:29)
[2022-06-15] MEDS: LEVOTHYROXINE SOD 0.075 MG TAB PO SCH (08:37)
[2022-06-15] MEDS: INSULIN -REGULAR HUMAN 50 UNIT/0.5 ML ML SQ SCH ×4 (08:40→22:12)
[2022-06-15] MEDS ORDERED: ACETYLCYST 6,000 MG/30 ML VIAL PO ONE (09:00)
[2022-06-15 10:25] LABS: Barbiturates NEGATIVE (NEGATIVE); Benzodiazepines NEGATIVE (NEGATIVE); Cocaine NEGATIVE (NEGATIVE); METHAMPHETAM NEGATIVE (NEGATIVE); Methadone NEGATIVE (NEGATIVE); Opiates NEGATIVE (NEGATIVE); Phencyclidine NEGATIVE (NEGATIVE); THC Cannibis NEGATIVE (NEGATIVE)
[2022-06-15 10:35] LABS: Specific Gravity 1.022 (1.005-1.030); Transitional Epithelial <5 /HPF (None Seen); Urine Bacteria 20-50 /HPF (<20); Urine Bilirubin 1+ (Negative); Urine Blood 2+ (Negative); Urine Clarity Extremely Turbid (Clear); Urine Color Yellow (Yellow); Urine Glucose TRACE (Negative); Urine Protein 3+ (Negative); Urine RBC >50 /HPF (None Seen); Urine Urobilinogen Normal (Normal)
--- NOTE | 2022-06-15 10:57 | CON ---
Date of Consultation: 06/13/2022 Reason For Consultation: Elevated liver chemistries. History Of Present Illness: The patient is a 67-year-old white female with history of diabetes, hype rtension, hyperlipidemia, end-stage liver disease, gastroparesis diagnosed x1 month, and recent lapar oscopic cholecystectomy and hypothyroidism. The patient presented to the hospital on June 11 due to acute shortness of breath and found to be in volume overload. CTA chest at that time revealed mil d CHF, which is not present on prior imaging studies nor echocardiogram in . The patient s tates that over the past 9 months, she has had increasing shortness of breath, dyspnea on exertion at 20 feet. She states that since June 11 when she was admitted, she had dyspnea on exertion just g oing to the bathroom less than 10 feet wall. This worsened again possibly yesterday she reports. Ju st some short assisted wall to the bathroom, she was short of breath. Of note, Cardiology did a preop evaluation on her 4 months ago, which was negative. There was some EKG abnormality chart review seems like to be possible myocardial infarction with repeat EKG findings, which no longer rev ealed this possible myocardial infarction finding , but of note, the echocardiogram from Ma y 2019, revealed mild tricuspid regurgitation and atrial fibrillation with rapid ventricular resp onse. Subsequent echocardiogram earlier this year did not reveal this including no atrial fibrillati on at that time. Patient denies any recent infections, fevers, chills, night sweats, heat or cold in tolerance, muscle aches, joint aches, backaches. Negative COVID testing recently. No exposure to yo matthew children. Negative for RSV. No that she knows of. No trauma to the belly. No new m edicines or drugs that she knows of. No herbal medicines. Past Medical History: Significant for hypertension; diabetes; end-stage renal disease, on hemodialys is 3 days a week; hyperlipidemia, gastroparesis, diagnosed 1 month ago; ; bilateral knee rep lacement, 3 vertebrae with lumbar spinal fusion x3; carpal tunnel surgery bilaterally; thyroid resect ion due to benign mass and half the thyroid removed; bilateral cataract surgeries; laparoscopic abdoulaye cystectomy; mild tricuspid regurgitation, atrial fibrillation with rapid ventricular response on November 21, 2019, echocardiogram. She had depression and appears to be also a neck fusion as well. Allergies: TO CODEINE, PROMETHAZINE, AND TAPE ADHESIVE. Home Medications: Include aspirin, Lipitor, Wellbutrin, vitamin D3, Lantus insulin, Humalog insulin, metoprolol, amlodipine, stool softener, Lasix, lisinopril, Claritin, multivitamin, thyroxine, Zofran , Protonix, Carafate, Bactrim. Social History: She is . She has a 37-year-old son who works for the government in [place], [place]. She quit tobacco 37 years ago prior to the of her son. No alcohol. Lives alone. Family History: Father at 88 of Alzheimer disease. By chart review, also had hypertension and heart disease. Mother is alive with diabetes, congestive heart failure, atrial fibrillation at age o f 97. On chart review, she also has lung disease and some unknown type of cancer. Physical Examination: General: The patient is sitting in chair, in no acute distress currently. Vital Signs: 5 feet 6 inches, 244 pounds. BMI of 39 kg/m2. Temperature 99 degrees Fahrenheit, puls e 77, respirations 18, blood pressure 131/69, O2 saturation 97% on 3 L O2. HEENT: Normocephalic, atraumatic. Anicteric. Pupils equal, round, and reactive to light. Extraocu lar movements intact. Oropharynx is clear. Neck: Supple. No masses. Respirations: Decreased breath sounds bilaterally at the bases. Abdomen: Positive bowel sounds. Soft, nontender, nondistended. Possible hepatomegaly, but no pain. No peritoneal Farrell signs. No rebound. Was obese. Extremities: She had mild cyanosis in the feet, especially the toes with 1+ lower extremity edema in the feet, a little bit trace in the levin. No clubbing noted, but the patient keeps her finger and t oenails curl very closely. Neuro: Alert and oriented x3. Able to move all extremities well. Laboratory Data: The patient's white count was 13.6, down from 15.8 on admission; hemoglobin of 8.4; hematocrit 25.6; MCV of 95.4; platelet count of 214, polys of 86.5%, of 5%, monocytes 7%. Patient has a sodium of 134, potassium 4.5, chloride 99, bicarb 26, BUN of 55, creatinine of 5.43, glucose 216, calcium 8.5, phosphorus 5.1. Total bilirubin 1.4, AST of 624, ALT of 443, alkaline phos phatase 617, total protein 6.7, albumin 2.7. Triglycerides 86, cholesterol 113, LDL 70, HDL of 26. Of note, on the , the patient had an AST of 133, ALT of 101, alkaline phosphatase of 427 and then on the we did have a B-type natriuretic peptide of 7724, was elevated and troponin I with high se nsitivity is normal at 57.6. Toxicology, acetaminophen less than 2.5, negative. COVID-19 test negat hermes. Vital hepatitis panel including hepatitis A, B, and C is pending at this time. CT of chest susana ed June 13, 2022, yesterday revealed mild congestive heart failure with volume overload suspected. There is a small right pleural effusion. Impression: 1.Elevated liver chemistries/shock liver, probably associated with cardiopulmonary events with acute increase in shortness of breath, dyspnea on exertion. Of note, patient has had increasing shortness of breath and dyspnea on exertion over the past 9 months with an acute increase on June 11 that h as led to her admission and again yesterday, patient states that her dyspnea on exertion worsened onc e again which correlates with the increase in her liver function tests over the past 2 day s. Of note, patient had a cardiology evaluation 4 months ago due to abnormality on EKG which presuma judy was finding possibly consistent with myocardial infarction. However, repeat EKG testing showed t hat resolved with no longer there and Cardiology evaluation was negative as per patient report and th e patient went ahead to have surgery at that time. Of note, back on November 21, 2019, echocardiogram rev ealed mild tricuspid regurgitation with atrial fibrillation and rapid ventricular response. This was not present on subsequent echocardiogram performed earlier this year. Therefore, suspect possible s hock liver due to acute cardiopulmonary event. 2.History of diabetes, hypertension, hyperlipidemia, end-stage renal disease on hemodialysis, gastro paresis x1 month diagnosis, , bilateral knee replacements, lumbar spinal fusion surgery with 3 vertebrae involved, carpal tunnel surgery bilaterally, have thyroid resected due to a benign mass, bilateral cataract surgery, laparoscopic cholecystectomy. An echo again on November 21, 2019, revealing mild tricuspid regurgitation with atrial fibrillation and rapid ventricular response. Recommendations: 1.Check PT, INR and PTT. It appears that PT is elevated at 16.3, INR is elevated at 1.48, PTT is no rmal at . This is consistent with cardiogenic liver shock due to cardiopulmonary event pos sibly. 2.Recheck B type nitrate peptide and troponin I. 3.Check EKG now. 4.Await pending viral hepatitis panel and check LANIE. 5.Echocardiogram which primary care physician tells me this has been done already yesterday. We antoni l need to assess results and compare with prior echocardiogram. 6.Consider Cardiology consultation. 7.Mucomyst therapy. 8.Consider checking for flu and RSV as well. ERIN/RENÉ Voice ID: [id number] Report ID: [id number]
[2022-06-15] MEDS: ACETYLCYST 6,000 MG/30 ML VIAL PO SCH ×3 (12:40→22:04)
--- NOTE | 2022-06-15 13:30 | PN ---
Date of Progress Note: 06/15/2022 Subjective: The patient was admitted with over volume, malfunction of hemodialysis catheter. The patient found to have elevation in the liver enzymes. The patient has status post cholecystectomy. Physical Examination: Vital Signs: Blood pressure 132/77, pulse of 68, afebrile. Chest: Faint rales on the left base. Heart: S1, S2. Systolic murmur. Abdomen: Soft, nontender. Extremity: Trace edema. Neuro: Alert. No focality. Laboratory Data: WBC 13.6, H and H 8.4/25.6. Sodium 131, potassium 4.9, bicarb 23, BUN 74, creatinine 6.9, calcium 8.5, phosphorus 6.5. Chest x-ray; cardiomegaly with congestion. Current Medications: The patient on include; 1. Heparin. 2. Epogen. 3. Atorvastatin. 4. Metoprolol. 5. Bumex 2 mg b.i.d. 6. Lactulose. 7. Pantoprazole. 8. Levothyroxine. 9. Morphine. Assessment And Plan: 1. End-stage renal disease, over volume, currently back to normal volume. I am going to back the patient to TTS dialysis. The patient is scheduled for dialysis today. We will utilize blood pressure for more ultrafiltration. 2. Hypertension, controlled, optimal. Keep utilizing blood pressure for more ultrafiltration. 3. Over volume. The patient currently normal volume, back to be dialyzed TTS. 4. Hyponatremia secondary to dilutional. Will be corrected with dialysis. 5. Elevation in liver enzyme, status post cholecystectomy. We will follow up with hospitalist. Time spent examining the patient [id number] placing order reviewing data lab and radiology discussing the case with the patient discussing the case with the seafood team member nursing staff and hospitalist more than 35-minute JOSÉ MIGUEL/RENÉ Voice ID: [id number] Report ID: [id number] ASHOK
[2022-06-15] MEDS: EPOETIN ALFA 10,000 UNIT/ML VIAL IV SCH (13:45)
[2022-06-15] MEDS: ONDANSETRON 4 MG/2 ML VIAL IV PRN (15:14)
--- NOTE | 2022-06-15 19:00 | P.PN ---
Subjective Date of Service: 06/15/22 Chief Complaint: ESRD, Volume Overload Subjective: Worsening (Liver chemistries continue to climb since admission with elevated PT/INR and increasing BNP. Echocardiogram pending. Trp I trending down.) Review of Systems General: Weakness, Malaise Respiratory: Shortness of Breath, SOB with Excertion Gastrointestinal: Abdominal Pain Physical Examination - Vital Signs Temperature: 97.1 F Blood Pressure: 112/55 Pulse: 73 Respirations: 18 Pulse Ox (%): 100 Assessment And Plan - Current Problems (Diagnosis) (1) Shock liver Current Visit: Yes Status: Acute (2) Abnormal liver enzymes Current Visit: Yes Status: Acute (3) Tricuspid regurgitation Current Visit: Yes Status: Acute (4) Congestive heart failure (CHF) Current Visit: Yes Status: Acute (5) Obesity Current Visit: Yes Status: Acute (6) Volume overload Current Visit: Yes Status: Acute Qualifiers: Hypervolemia type: other Qualified Code(s): E87.79 - Other fluid overload (7) ESRD (end stage renal disease) Current Visit: Yes Status: Chronic - Plan REC: 1) start Mucomyst 2) await echocardiogram result 3) cardiology consult 4) maintain BP, possibly reduce Metoprolol (prior h/o transient A fib with RVR in 2020 on Echo then) Physician Review: Patient Assessed, Agree with Above Assessment and Plan
--- NOTE | 2022-06-15 20:35 | P.PN ---
Subjective Date of Service: 06/15/22 Chief Complaint: ESRD, Volume Overload No acute events overnight. She reports that her shortness of breath is improved. She denies any chest pain, abdominal pain, nausea, vomiting, or palpitations. LFTs continue to up-trend Review of Systems 10-point ROS is otherwise unremarkable Respiratory: Shortness of Breath Physical Examination - Vital Signs Temperature: 97.1 F Blood Pressure: 112/55 Pulse: 73 Respirations: 18 Pulse Ox (%): 100 Assessment And Plan - Plan - Physical Exam General: Alert, In no apparent distress, Oriented x3 HEENT: Atraumatic, Mucous membr. moist/pink, EOMI, Sclerae nonicteric Neck: JVD not distended Respiratory: Clear to auscultation bilaterally, Normal air movement Cardiovascular: Normal pulses, Regular rate/rhythm, No gallops, No rubs, No murmurs Gastrointestinal: Normal bowel sounds, Soft and benign, Non-distended, No tenderness, No rebound, No guarding Musculoskeletal: No clubbing Integumentary: No rashes Neurological: Normal speech, Cranial nerves 3-12 intact, Normal affect # Suspect Acute Decompensated Congestive Heart Failure with Unknown Ejection Fraction Chest x-ray initially suggestive of pneumonia; however, CT chest argues against pneumonia. Suspect chest x-ray findings represent pulmonary edema. - Cardiology consulted and spoke with Dr. Lantigua - recommendations appreciated - Chest x-ray = "Left IJ hemodialysis catheter. Chronic lung changes. Bilateral interstitial opacities concerning for pneumonia. No pleural effusion. No pneumothorax. Cardiomediastinal silhouette is enlarged. No acute osseous abnormality." - CT chest = "mild CHF versus volume overload pattern suspected.No infiltrate seen typical of pneumonia. Small right pleural effusion." - Volume will need to be removed via hemodialysis - plan for dialysis today - Discontinue ceftriaxone + azithromycin - Transthoracic echocardiogram ordered - Daily weights - Strict I/O - 1.5 L fluid restriction, 2 g Na restriction # Elevated LFTs - concern for Acute Hepatitis vs Acute Liver Injury - Consulted Gastroenterology and spoke with Dr. Peres - recommendations appreciated - Leading differential diagnoses at this time is congestive hepatopathy vs shock liver (due to relative hypotension during HD?) - Recommended giving acetylcysteine - Avoid hepatotoxic medications - Limit acetaminophen - Ordered acetaminophen level, and urine drug screen - Acetaminophen level < 2.5 - UDS negative - Transthoracic echocardiogram ordered - Liver ultrasound = "mild hepatomegaly" - Ordered HAV IgM, HBsAg, HbsAb, HBcAb, and HCV serologies # Hypervolemia in End-Stage Renal Disease on intermittent Hemodialysis # Anemia of Chronic Kidney Disease - Nephrology consulted - recommendations appreciated - Continue home bumetanide # Deconditioning - Consulted PT # Type II Diabetes Mellitus - Correction scale insulin # Hypothyroidism - Continue home levothyrxine Abran An M.D.
[2022-06-15] MEDS ORDERED: NA CHLORIDE 0.9% 250 ML IV ONE (23:36)
[2022-06-15] MEDS: MELATONIN 5 MG TABLET PO PRN (23:44)
[2022-06-16] MEDS: ACETYLCYST 6,000 MG/30 ML VIAL PO SCH ×6 (01:49→21:07)
[2022-06-16 02:00] VITALS: BMI 38.1
[2022-06-16 03:28] LABS: Absolute Lymphocytes (CBC) 1.5 K/uL (0.7-4.9); Hematocrit 28.2 % (36.0-45.0); Lymphocytes % 8.8 % (15.3-44.8); MCV 97.1 fL (80-100); MPV 8.1 fL (7.6-11.3); RBC Red Blood Cell Count 2.91 M/uL (3.86-4.86)
[2022-06-16 03:35] LABS: Protime INR 1.63
[2022-06-16 04:05] LABS: Albumin 2.5 g/dL (3.4-5.0); Bilirubin Direct 0.4 mg/dL (0-0.2); Bilirubin Total 0.9 mg/dL (0.2-1.0); Phosphorus 6.1 mg/dL (2.5-4.9); Potassium 4.3 mmol/L (3.5-5.1); Protein, Total 6.5 g/dL (6.4-8.2)
[2022-06-16] MEDS: METOPROLOL XL 25 MG TAB PO SCH (05:44)
--- NOTE | 2022-06-16 07:37 | ECHO ---
HEIGHT: 5 ft 6 in WEIGHT: 236 lb 7 oz DATE OF STUDY: 06/15/[address]: Abran An MD 2-DIMENSIONAL: YES M.MODE: YES DOPPLER: YES COLOR FLOW: YES TDS: PORTABLE: YES DEFINITY: BUBBLE STUDY: DIAGNOSIS: CONGESTIVE HEART FAILURE CARDIAC HISTORY: CATHERIZATION: NO SURGERY: NO PROSTHETIC VALVE: NO PACEMAKER: NO MEASUREMENTS (cm) DIASTOLIC (NORMALS) SYSTOLIC (NORMALS) IVSd 1.5 (0.6-1.2) LA Diam 3.0 (1.9-4.0) LVEF 50% LVIDd 4.0 (3.5-5.7) LVIDs 2.6 (2.0-3.5) %FS 34% LVPWd 1.5 (0.6-1.2) Ao Diam 2.9 (2.0-3.7) 2 DIMENSIONAL ASSESSMENT: RIGHT ATRIUM: NORMAL LEFT ATRIUM: NORMAL RIGHT VENTRICLE: NORMAL LEFT VENTRICLE: NORMAL TRICUSPID VALVE: NORMAL MITRAL VALVE: MITRAL ANNULAR CALFCIFICATION PULMONIC VALVE: NORMAL AORTIC VALVE: NORMAL PERICARDIAL EFFUSION: SMALL AORTIC ROOT: NORMAL LEFT VENTRICULAR WALL MOTION: UNABLE TO EVALUATE DOPPLER/COLOR FLOW: SEE BELOW COMMENTS: 1. POOR WINDOWS 2. MILDLY DEPRESSED LEFT VENTRICULAR EJECTION FRACTION 50% 3. DIASTOLIC DYSFUNCTION 4. SMALL PERICARDIAL EFFUSION TECHNOLOGIST: JORDAN GONZALEZ
[2022-06-16] MEDS: ONDANSETRON 4 MG/2 ML VIAL IV PRN (08:52)
[2022-06-16] MEDS: DOCUSATE NA 100 MG CAP PO SCH ×3 (09:00→21:00)
[2022-06-16] MEDS: BUMETANIDE 1 MG TABLET PO SCH ×2 (10:09→21:00)
[2022-06-16] MEDS: BUSPIRONE HCL 5 MG TABLET PO SCH ×2 (10:10→21:07)
[2022-06-16] MEDS: INSULIN -REGULAR HUMAN 50 UNIT/0.5 ML ML SQ SCH ×4 (10:10→21:07)
[2022-06-16] MEDS: LEVOTHYROXINE SOD 0.075 MG TAB PO SCH (10:10)
[2022-06-16] MEDS: PANTOPRAZOLE 40MG TABLET PO SCH ×2 (10:11→16:19)
--- NOTE | 2022-06-16 17:03 | P.PN ---
Subjective Date of Service: 06/16/22 Chief Complaint: ESRD, Volume Overload, shock liver Subjective: Improving (Liver numbers coming down with start of Mucomyst. She feels better and is sitting on side of bed laughing.) Review of Systems 10-point ROS is otherwise unremarkable General: Weakness (Improved.), Malaise (Improved.) Physical Examination - Vital Signs Temperature: 97.5 F Blood Pressure: 93/56 Pulse: 81 Respirations: 24 Pulse Ox (%): 98 - Physical Exam General: Alert, In no apparent distress, Oriented x3, Cooperative HEENT: Atraumatic, Normocephalic, PERRLA, EOMI Neck: Supple Respiratory: Diminished (in bases) Cardiovascular: Normal pulses Gastrointestinal: Soft and benign, No tenderness, No rebound, No guarding Neurological: Normal speech Assessment And Plan - Current Problems (Diagnosis) (1) Shock liver Current Visit: Yes Status: Acute Comment: Improved. (2) Abnormal liver enzymes Current Visit: Yes Status: Acute (3) Tricuspid regurgitation Current Visit: Yes Status: Acute (4) Congestive heart failure (CHF) Current Visit: Yes Status: Acute (5) Obesity Current Visit: Yes Status: Acute (6) Volume overload Current Visit: Yes Status: Acute Qualifiers: Hypervolemia type: other Qualified Code(s): E87.79 - Other fluid overload (7) ESRD (end stage renal disease) Current Visit: Yes Status: Chronic - Plan REC: 1) continue Mucomyst 2) await echocardiogram result 3) maintain BP, possibly reduce Metoprolol (prior h/o transient A fib with RVR in 2019 on Echo then) Physician Review: Patient Assessed, Agree with Above Assessment and Plan
--- NOTE | 2022-06-16 17:45 | P.PN ---
Subjective Date of Service: 06/16/22 Chief Complaint: ESRD, Volume Overload, shock liver No acute events overnight. She reports that she is starting to feel slightly better, but she continues to experience shortness of breath with exertion. She denies any chest pain, abdominal pain, nausea, vomiting, or palpitations. LFTs have stabilized. Review of Systems 10-point ROS is otherwise unremarkable General: Weakness Respiratory: SOB with Excertion Physical Examination - Vital Signs Temperature: 97.5 F Blood Pressure: 93/56 Pulse: 81 Respirations: 24 Pulse Ox (%): 98 Assessment And Plan - Plan - Physical Exam General: Alert, In no apparent distress, Oriented x3 HEENT: Atraumatic, Mucous membr. moist/pink, EOMI, Sclerae nonicteric Neck: JVD not distended Respiratory: Clear to auscultation bilaterally, Normal air movement Cardiovascular: Normal pulses, Regular rate/rhythm, No gallops, No rubs, No murmurs Gastrointestinal: Normal bowel sounds, Soft and benign, Non-distended, No tenderness, No rebound, No guarding Musculoskeletal: No clubbing Integumentary: No rashes Neurological: Normal speech, Cranial nerves 3-12 intact, Normal affect # Suspect Acute Decompensated Congestive Heart Failure with Preserved Ejection Fraction Chest x-ray initially suggestive of pneumonia; however, CT chest argues against pneumonia. Suspect chest x-ray findings represent pulmonary edema. - Cardiology consulted and spoke with Dr. Lantigua - recommendations appreciated - Chest x-ray = "Left IJ hemodialysis catheter. Chronic lung changes. Bilateral interstitial opacities concerning for pneumonia. No pleural effusion. No pneumothorax. Cardiomediastinal silhouette is enlarged. No acute osseous abnormality." - CT chest = "mild CHF versus volume overload pattern suspected.No infiltrate seen typical of pneumonia. Small right pleural effusion." - Volume will need to be removed via hemodialysis - Discontinue ceftriaxone + azithromycin - Transthoracic echocardiogram = "2. mildly depressed left ventricular ejection fraction 50% 3. diastolic dysfunction 4. small pericardial effusion." - Daily weights - Strict I/O - 1.5 L fluid restriction, 2 g Na restriction # Elevated LFTs - concern for Acute Hepatitis vs Acute Liver Injury - Consulted Gastroenterology and spoke with Dr. Peres - recommendations appreciated - Leading differential diagnoses at this time is congestive hepatopathy vs shock liver (due to relative hypotension during HD?) - Continue acetylcysteine - Avoid hepatotoxic medications - Limit acetaminophen - Ordered acetaminophen level, and urine drug screen - Acetaminophen level < 2.5 - UDS negative - Transthoracic echocardiogram = "2. mildly depressed left ventricular ejection fraction 50% 3. diastolic dysfunction 4. small pericardial effusion." - Liver ultrasound = "mild hepatomegaly" - Ordered HAV IgM, HBsAg, HbsAb, HBcAb, and HCV serologies # Hypervolemia in End-Stage Renal Disease on intermittent Hemodialysis # Anemia of Chronic Kidney Disease - Nephrology consulted - recommendations appreciated - Continue home bumetanide # Deconditioning - Consulted PT # Type II Diabetes Mellitus - Correction scale insulin # Hypothyroidism - Continue home levothyrxine Abran An M.D.
--- NOTE | 2022-06-16 19:15 | CON ---
Date of Consultation: 06/16/2022 Reason For Consultation: Congestive heart failure. History Of Present Illness: This is a 67-year-old female with past medical history of end-stage gera l disease on hemodialysis, compliant usually, but she had a period of time where she had significant diarrhea where she could not be compliant all the time. She has history of diabetes, and hypothyroid ism presented to the emergency room because of shortness of breath and lower extremity edema and orth opnea. During the hospital stay, her liver enzymes started to go up gradually and there was a concer n about possible liver congestion from the congestive heart failure. I saw her by bedside and patien t denies having any chest pain and denies having any resting shortness of breath; however, she has sh ortness of breath on exertion. As outlined above, patient missed dialysis in the recent past due to significant diarrhea as per her report. When she arrived to the hospital, her blood pressure dropped to mid 80s in the lowest and now her blood pressure is running around 100 systolic. Past Medical History: Hypertension, end-stage renal disease, diabetes, dyslipidemia, and gastropares is. Medications: Refer to reconciliation sheet for detailed list. Allergies: CODEINE, PROMETHAZINE, AND ADHESIVE TAPE. Family History: No premature coronary artery disease or cancer. Social History: She does not smoke, does not drink, or use any drugs. Review of Systems: All systems reviewed and are negative except as mentioned in HPI. Physical Examination: Vital Signs: Temperature is 97.5, pulse 81, breathing 24, blood pressure is 93/56, and saturating 98 %. General: This is a middle-aged female in no apparent distress. Head And Neck: Pupils are equal and reactive to light. Intact eye movements. No cervical lymphaden opathy. Neck: Supple. Thyroid is not enlarged. Lungs: Decreased breathing sounds with faint crackles in the bases. No accessory muscle use or musc le retraction. Heart: Irregular. No extra sounds. Abdomen: Soft, nontender. Bowel sounds positive. No organomegaly. No masses or hernia. No rigidi ty or rebound. Extremities: There is 2 to 3+ pitting edema. No clubbing or cyanosis. Intact pulses. Skin: No rash. Neurologic: Alert, awake, and oriented x3. No acute focal deficits appreciated. Investigations: Her AST is 812, ALT is 1081, BUN is 81, and creatinine is 6.82. The echo was limite d study due to poor windows; however, ejection fraction appears to be mildly depressed and could not get more hemodynamic information due to the poor windows. Assessment And Recommendations: 1.Shortness of breath with lower extremity edema and orthopnea suggestive of congestive heart failur e exacerbation. The patient is on hemodialysis for end-stage renal disease and Nephrology is on boar d for inhouse dialysis for fluid removal as the blood pressure allows. Her echo was very limited exa m. If this patient has very difficult windows and unable to obtain a good study, then I would recomm end doing transesophageal echocardiogram to get more information to be processed about the heart func tion and the structures of the heart and further recommendations will be made accordingly. In the in terim, fluid management via dialysis is recommended and strict low-sodium diet. 2.Elevated liver enzymes. This could be in part due to congestive heart failure and again the echo was very limited due to poor windows and I will plan on doing transesophageal echocardiogram on her e maria eugenia next week. LFTs are being monitored very closely by GI. 3.Systolic congestive heart failure. She needs ischemia workup, which we will arrange for once the liver issues settle and after evaluating the heart further with a GERALDINE. SR/MODL Voice ID: [id number] Report ID: [id number]
[2022-06-16] MEDS: MELATONIN 5 MG TABLET PO PRN (21:08)
[2022-06-16] MEDS ORDERED: LOPERAMIDE HCL 2 MG CAPSULE PO ONE (22:38)
[2022-06-17] MEDS: ACETYLCYST 6,000 MG/30 ML VIAL PO SCH ×6 (01:11→21:39)
--- NOTE | 2022-06-17 01:48 | PN ---
Date of Progress Note: 06/16/2022 Chief Complaint: Congestive heart failure, end-stage renal disease, fluid overload, and decompensate d congestive heart failure. Subjective: The patient has been dialyzed daily. She is feeling better. Today she is complaining o f some abdominal discomfort. She was seen by a apprentice embalmer. The patient is on beta susan f or congestive heart failure. Review of Systems: Denies fever or chills. Physical Examination: Lungs: Diminished breath sounds at bases. Heart: S1, S2. Abdomen: Soft. Extremities: Edema has improved. Impression And Plan: 1.End-stage renal disease. Next dialysis tomorrow. Monitor blood pressure closely and adjust ultra filtration for volume control. Patient has history of hypotensive episode during dialysis. Patient may need midodrine for intradialytic hypotension. 2.Hyponatremia secondary to dilutional effect of volume overload. Patient will have dialysis with u ltrafiltration. Continue p.o. fluid restriction. 3.Elevation in liver enzymes status post cholecystectomy. Follow up with GI. FREDDY/MICKEYL Voice ID: [id number] Report ID: [id number]
[2022-06-17 03:40] LABS: Albumin 2.7 g/dL (3.4-5.0); Bilirubin Total 0.8 mg/dL (0.2-1.0); Phosphorus 7.4 mg/dL (2.5-4.9); Potassium 4.6 mmol/L (3.5-5.1); Protein, Total 6.7 g/dL (6.4-8.2)
[2022-06-17] MEDS: DIPHENHYDRAMINE 25 MG TAB/CAP PO PRN (04:06)
[2022-06-17] MEDS: ONDANSETRON 4 MG/2 ML VIAL IV PRN ×2 (04:08→21:44)
[2022-06-17] MEDS ORDERED: NA CHLORIDE 0.9% 500 ML IV ONE ×2 (04:37→10:00)
[2022-06-17] MEDS ORDERED: METOPROLOL XL 25 MG TAB PO SCH (06:00)
[2022-06-17] MEDS: METOPROLOL XL 25 MG TAB PO SCH ×2 (06:00→17:16)
[2022-06-17 07:42] LABS: Absolute Lymphocytes (CBC) 0.9 K/uL (0.7-4.9); Hematocrit 29.8 % (36.0-45.0); Lymphocytes % 4.6 % (15.3-44.8); MCV 99.5 fL (80-100); MPV 7.8 fL (7.6-11.3)
[2022-06-17] MEDS ORDERED: Ringers Lactate 500 ML IV SCH (08:00)
[2022-06-17 08:21] LABS: Hepatitis C Virus RNA (PCR)log <1.18 log IU/mL
[2022-06-17] MEDS: INSULIN -REGULAR HUMAN 50 UNIT/0.5 ML ML SQ SCH ×4 (08:27→21:00)
[2022-06-17] MEDS: BUSPIRONE HCL 5 MG TABLET PO SCH ×2 (08:27→21:00)
[2022-06-17] MEDS: LEVOTHYROXINE SOD 0.075 MG TAB PO SCH (08:27)
[2022-06-17] MEDS: PANTOPRAZOLE 40MG TABLET PO SCH ×2 (08:27→17:16)
[2022-06-17] MEDS: DOCUSATE NA 100 MG CAP PO SCH ×2 (08:28→21:00)
[2022-06-17] MEDS: BUMETANIDE 1 MG TABLET PO SCH (08:28)
[2022-06-17] MEDS ORDERED: VANCOMYCIN 2 GM in NA CHLORIDE 0.9% 500 ML IV SCH (09:00)
[2022-06-17] MEDS ORDERED: VANCOMYCIN 1 GM in NA CHLORIDE 0.9% 250 ML IV SCH (09:00)
[2022-06-17] MEDS ORDERED: CEFEPIME 1 GM in NA CHLORIDE 0.9% 100 ML IV SCH (09:00)
[2022-06-17] MEDS ORDERED: MIDODRINE HCL 5 MG TABLET PO ONE (10:00)
[2022-06-17 10:12] LABS: Blood Morphology Comment NOTED (NOT SEEN); Macrocytosis SLIGHT; Platelet Estimate ADEQ; Poikilocytosis 1+; White Blood Cell Scan LEUKOCYTOSIS (OK)
[2022-06-17 10:13] LABS: Anisocytosis SLIGHT; Ovalocytes 1+
[2022-06-17] MEDS ORDERED: ALBUMIN HUMAN 25% 100 ML IV ONE (11:22)
--- NOTE | 2022-06-17 13:11 | PN ---
Date of Progress Note: 06/17/2022 Subjective: The patient was admitted with over volume, malfunction of Perm-A-Cath. The patient treated, recovered. The patient developed elevation in LFTs and leukocytosis today. Also, the patient complaining from low blood pressure, blood pressure down to the 70s without any chest pain, although shortness of breath. Physical Examination: Vital Signs: Blood pressure 85/51, pulse of 104, afebrile. Chest: Decreased entry bilateral base. Heart: S1, S2. Systolic murmur. Abdomen: Soft, nontender. Extremities: +1 edema. Neurologic: Alert. No focality. Laboratory Data: WBC 20.1, H and H 9.6/29.8. Sodium 135, potassium 4.6, bicarb 16, BUN 105, creatinine 7.7, calcium 8.2, phosphorus 7.4, albumin 2.7. Corrected calcium is 9.2. Current Medications: The patient on include; 1. Diphenhydramine. 2. Midodrine. 3. Epogen. 4. Atorvastatin. 5. Metoprolol 12.5 b.i.d. 6. Tylenol 7. Bumex 2 mg b.i.d. 8. Pantoprazole. 9. Zofran. 10. Levothyroxine. 11. Melatonin. Assessment And Plan: 1. End-stage renal disease, over volume with acidosis. The patient poor compliant, keep cutting her treatment. We will do dialysis today if blood pressure get stabilized. Repeated blood pressure currently up to 116. We will proceed with dialysis. The patient is going to be dialyzed on sodium module as to support the blood pressure and we will follow up the patient. 2. Acidosis, going to be corrected with dialysis. 3. Leukocytosis with low blood pressure. To rule out any septic shock, I agree with current antibiotic. We will follow up with GI. Time spent examining the patient [id number] placing order reviewing data lab and radiology discussing the case with the patient discussing the case with the steam pan sponger nursing staff and hospitalist more than 35-minute JOSÉ MIGUEL/RENÉ Voice ID: [id number] Report ID: [id number] ASHOK
[2022-06-17] MEDS ORDERED: ASPIRIN 81 MG CHEWABLE TABLET PO ONE (13:43)
--- NOTE | 2022-06-17 13:50 | P.PN ---
Subjective Date of Service: 06/17/22 Chief Complaint: ESRD, Volume Overload, shock liver No acute events overnight. She reports that her symptoms are unchanged. She states that her primary symptom is generalized weakness. LFTs have stabilized; however, she remains intermittently hypotensive. Review of Systems 10-point ROS is otherwise unremarkable General: Weakness (generalized) Physical Examination - Vital Signs Temperature: 97.3 F Blood Pressure: 119/65 Pulse: 86 Respirations: 20 Pulse Ox (%): 99 Assessment And Plan - Plan - Physical Exam General: Alert, In no apparent distress, Oriented x3 HEENT: Atraumatic, Mucous membr. moist/pink, EOMI, Sclerae nonicteric Neck: JVD not distended Respiratory: Clear to auscultation bilaterally, Normal air movement Cardiovascular: Normal pulses, Regular rate/rhythm, No gallops, No rubs, No murmurs Gastrointestinal: Normal bowel sounds, Soft and benign, Non-distended, No tenderness, No rebound, No guarding Musculoskeletal: No clubbing Integumentary: No rashes Neurological: Normal speech, Cranial nerves 3-12 intact, Normal affect # Elevated Troponin - concern for Acute Coronary Syndrome # Suspect Acute Decompensated Congestive Heart Failure with Preserved Ejection Fraction Chest x-ray initially suggestive of pneumonia; however, CT chest argues against pneumonia. Suspect chest x-ray findings represent pulmonary edema. - Cardiology consulted and spoke with Dr. Lantigua - recommendations appreciated - Troponin 57.6 -> 32.6 -> 3725.8 - Ordered aspirin 324 mg PO x 1 + heparin drip - Ordered STAT EKG - Dr. Lantigua to evaluate for possible LHC - Chest x-ray = "Left IJ hemodialysis catheter. Chronic lung changes. Bilateral interstitial opacities concerning for pneumonia. No pleural effusion. No pneumothorax. Cardiomediastinal silhouette is enlarged. No acute osseous abnormality." - CT chest = "mild CHF versus volume overload pattern suspected.No infiltrate seen typical of pneumonia. Small right pleural effusion." - Volume will need to be removed via hemodialysis - Discontinue ceftriaxone + azithromycin - Transthoracic echocardiogram = "2. mildly depressed left ventricular ejection fraction 50% 3. diastolic dysfunction 4. small pericardial effusion." - Daily weights - Strict I/O - 1.5 L fluid restriction, 2 g Na restriction # Elevated LFTs - concern for Acute Hepatitis vs Acute Liver Injury - Consulted Gastroenterology and spoke with Dr. Larisa - recommendations appreciated - Leading differential diagnoses at this time is shock liver (due to relative hypotension during HD?) - Continue acetylcysteine - Avoid hepatotoxic medications - Limit acetaminophen - Ordered acetaminophen level, and urine drug screen - Acetaminophen level < 2.5 - UDS negative - Transthoracic echocardiogram = "2. mildly depressed left ventricular ejection fraction 50% 3. diastolic dysfunction 4. small pericardial effusion." - Liver ultrasound = "mild hepatomegaly" - Ordered HAV IgM, HBsAg, HbsAb, HBcAb, and HCV serologies # Hypervolemia in End-Stage Renal Disease on intermittent Hemodialysis # Anemia of Chronic Kidney Disease - Nephrology consulted - recommendations appreciated - Hold home bumetanide # Leukocytosis - Unclear source of infection, infectious evaluation initiated - Empiric antibiotcs started - Vancomycin + Cefepime - Repeat urinalysis - Initial sample likely contaminated (20-50 squamous epithelia) # Deconditioning - Consulted PT # Type II Diabetes Mellitus - Correction scale insulin # Hypothyroidism - Continue home levothyrxine Abran An M.D.
[2022-06-17] MEDS: EPOETIN ALFA 10,000 UNIT/ML VIAL IV SCH (14:30)
[2022-06-17 15:25] LABS: Absolute Lymphocytes (CBC) 1.2 K/uL (0.7-4.9); Hematocrit 27.9 % (36.0-45.0); Lymphocytes % 7.1 % (15.3-44.8); MCV 96.5 fL (80-100); MPV 7.7 fL (7.6-11.3); RBC Red Blood Cell Count 2.89 M/uL (3.86-4.86)
[2022-06-17 15:33] LABS: Protime INR 1.47
[2022-06-17] MEDS: HEPARIN/D5W 25,000 UNIT/500 ML BAG IV PRN (15:40)
[2022-06-17 19:44] LABS: Specific Gravity 1.016 (1.005-1.030); Urine Bilirubin NEGATIVE (Negative); Urine Blood 2+ (Negative); Urine Clarity Extremely Turbid (Clear); Urine Color Yellow (Yellow); Urine Crystals Unidentified Few /HPF (None Seen); Urine Glucose TRACE (Negative); Urine Protein 3+ (Negative); Urine RBC >50 /HPF (None Seen); Urine Urobilinogen Normal (Normal); Urine WBC Clump Many /HPF (None Seen); Urine pH 5.5 (5.0-7.0)
[2022-06-17] MEDS ORDERED: HEPARIN 5000 UNIT/ML 1 ML VIAL ONE (21:31)
[2022-06-17] MEDS: MELATONIN 5 MG TABLET PO PRN (21:44)
--- NOTE | 2022-06-17 22:53 | PN ---
Date of Progress Note: 06/17/2022 Subjective: Seen at bedside. She is feeling tired after the dialysis. Denies having any chest pain . Troponin was checked earlier this morning and it was elevated at 3725. The patient denies having any cardiac history or any cardiac complaints. Physical Examination: Vital Signs: Reviewed. Head And Neck: Pupils are equal and reactive to light. No cervical lymphadenopathy. Mild JVD eleva tion. Heart: Regular rate and rhythm. No extra sounds. Abdomen: Soft, nontender. Bowel sounds positive. No organomegaly. No masses or hernia. No rigidi ty or rebound. Extremities: No clubbing or cyanosis. 2+ pedal edema. Neurologic: Alert, awake, and oriented x3. No acute focal deficits appreciated. Investigations: Troponin was 3725. ALT of 787 and AST was 320. Assessment/recommendation: Elevated troponin. No chest pain. This could be demand ischemia; neil r, the patient has multiple risk factors. I would recommend anticoagulation with IV heparin and baby aspirin. Plan for coronary angiogram over the next week. SR/MODL Voice ID: [id number] Report ID: [id number]
[2022-06-18] MEDS: ACETYLCYST 6,000 MG/30 ML VIAL PO SCH ×2 (01:44→04:29)
[2022-06-18] MEDS: METOPROLOL XL 25 MG TAB PO SCH ×2 (06:00→17:08)
[2022-06-18 06:37] LABS: Absolute Lymphocytes (CBC) 1.3 K/uL (0.7-4.9); Hematocrit 28.5 % (36.0-45.0); Lymphocytes % 8.2 % (15.3-44.8); MCV 98.6 fL (80-100); MPV 7.7 fL (7.6-11.3); RBC Red Blood Cell Count 2.89 M/uL (3.86-4.86)
[2022-06-18 07:03] LABS: Albumin 2.8 g/dL (3.4-5.0); Bilirubin Total 0.8 mg/dL (0.2-1.0); Phosphorus 6.3 mg/dL (2.5-4.9); Potassium 4.2 mmol/L (3.5-5.1); Protein, Total 6.5 g/dL (6.4-8.2)
[2022-06-18 07:10] LABS: Thyroid Stimulating Hormone 4.39 uIU/mL (0.358-3.740)
[2022-06-18] MEDS ORDERED: LOPERAMIDE HCL 2 MG CAPSULE PO PRN (07:48)
[2022-06-18] MEDS: INSULIN -REGULAR HUMAN 50 UNIT/0.5 ML ML SQ SCH ×4 (08:21→21:01)
[2022-06-18] MEDS: BUSPIRONE HCL 5 MG TABLET PO SCH ×2 (08:22→21:01)
[2022-06-18] MEDS: DOCUSATE NA 100 MG CAP PO SCH ×2 (08:22→21:00)
[2022-06-18] MEDS: PANTOPRAZOLE 40MG TABLET PO SCH ×2 (08:22→17:08)
[2022-06-18] MEDS: LEVOTHYROXINE SOD 0.075 MG TAB PO SCH (08:22)
[2022-06-18] MEDS: HEPARIN/D5W 25,000 UNIT/500 ML BAG IV PRN (11:34)
--- NOTE | 2022-06-18 15:22 | PN ---
Date of Progress Note: 06/18/2022 Subjective: Patient was admitted with malfunction Perm-A-Cath, over volume, poor compliant. Patient had episode of low blood pressure. Serial cardiac enzyme was elevated. The patient was started on heparin drip. Patient had dialysis yesterday, tolerated well. Managed to remove 2.5 L. Physical Examination: Vital Signs: Blood pressure 99/60, pulse of 89, afebrile. Chest: Clear to auscultation. Heart: S1, S2, regular. Abdomen: Soft, nontender. Extremities: Trace edema. Neurologic: Alert. No focality. Laboratory Data: WBC trend down 15.3, H and H 9.2/28.5. Sodium 135, potassium 4.2, bicarb 19, BUN 58, creatinine 5.9, calcium 8.3, phosphorus 6.3. Troponin 5600, trending plateau currently. TSH 4.3. Current Medications: The patient on include: 1. Heparin drip. 2. Aspirin. 3. Cefepime. 4. Midodrine. 5. Epogen. 6. Buspirone. 7. Bumex. 8. Loperamide. 9. Pantoprazole. 10. Docusate. Patient is seen by Cardiology yesterday. Assessment And Plan: 1. End-stage renal disease, over volume, currently started to be normal volume with the insult of cardiac, and I am going to back to her schedule as TTS. Patient is going to be scheduled for dialysis on Sunday. 2. Hypertension, currently hypotension. Off blood pressure medication except the diuresis with cardiogenic shock. We will hold blood pressure medications. We will follow up with Cardiology. 3. Cardiogenic shock, ron-[id number]-[id number] myocardial infarction. Patient seen by Cardiology. Continue heparin and aspirin. We will plan for cardiac cath next week. 4. Leukocytosis, trending down currently. Continue current antibiotic. We will follow up with the primary. 5. Chronic obstructive pulmonary disease with exacerbation. Continue current support. Time spent examining the patient [id number] placing order reviewing data lab and radiology discussing the case with the patient discussing the case with the steam cleaner nursing staff and hospitalist more than 35-minute JOSÉ MIGUEL/RENÉ Voice ID: [id number] Report ID: [id number] [facility] HOSPITALNataly
--- NOTE | 2022-06-18 17:13 | P.PN ---
Subjective Date of Service: 06/18/22 Chief Complaint: ESRD, Volume Overload, shock liver No acute events overnight. She reports that she continues to feel generalized weakness/malaise. Troponin had up-trended, but remained flat. Cardiology planning for possible LHC this week. Review of Systems 10-point ROS is otherwise unremarkable General: Weakness, Malaise Physical Examination - Vital Signs Temperature: 97.2 F Blood Pressure: 91/54 Pulse: 89 Respirations: 20 Pulse Ox (%): 98 Assessment And Plan - Plan - Physical Exam General: Alert, In no apparent distress, Oriented x3 HEENT: Atraumatic, Mucous membr. moist/pink, EOMI, Sclerae nonicteric Neck: JVD not distended Respiratory: Clear to auscultation bilaterally, Normal air movement Cardiovascular: Normal pulses, Regular rate/rhythm, No gallops, No rubs, No murmurs Gastrointestinal: Normal bowel sounds, Soft and benign, Non-distended, No tenderness, No rebound, No guarding Musculoskeletal: No clubbing Integumentary: No rashes Neurological: Normal speech, Cranial nerves 3-12 intact, Normal affect # Elevated Troponin - concern for Acute Coronary Syndrome # Suspect Acute Decompensated Congestive Heart Failure with Preserved Ejection Fraction Chest x-ray initially suggestive of pneumonia; however, CT chest argues against pneumonia. Suspect chest x-ray findings represent pulmonary edema. - Cardiology consulted and spoke with Dr. Lantigua - recommendations appreciated - Troponin 57.6 -> 32.6 -> 3725.8 -> 5657.6 -> 5312.6 - Ordered aspirin 324 mg PO x 1 + heparin drip - STAT EKG without STEMI criteria - Dr. Lantigua to evaluate for possible LHC - Chest x-ray = "Left IJ hemodialysis catheter. Chronic lung changes. Bilateral interstitial opacities concerning for pneumonia. No pleural effusion. No pneumothorax. Cardiomediastinal silhouette is enlarged. No acute osseous abnormality." - CT chest = "mild CHF versus volume overload pattern suspected.No infiltrate seen typical of pneumonia. Small right pleural effusion." - Volume will need to be removed via hemodialysis - Discontinue ceftriaxone + azithromycin - Transthoracic echocardiogram = "2. mildly depressed left ventricular ejection fraction 50% 3. diastolic dysfunction 4. small pericardial effusion." - Daily weights - Strict I/O - 1.5 L fluid restriction, 2 g Na restriction # Elevated LFTs - concern for Acute Hepatitis vs Acute Liver Injury - Consulted Gastroenterology and spoke with Dr. Peres - recommendations appreciated - Leading differential diagnoses at this time is shock liver (due to relative hypotension during HD?) - Continue acetylcysteine - Avoid hepatotoxic medications - Limit acetaminophen - Ordered acetaminophen level, and urine drug screen - Acetaminophen level < 2.5 - UDS negative - Transthoracic echocardiogram = "2. mildly depressed left ventricular ejection fraction 50% 3. diastolic dysfunction 4. small pericardial effusion." - Liver ultrasound = "mild hepatomegaly" - Ordered HAV IgM, HBsAg, HbsAb, HBcAb, and HCV serologies # Hypervolemia in End-Stage Renal Disease on intermittent Hemodialysis # Anemia of Chronic Kidney Disease - Nephrology consulted - recommendations appreciated - Hold home bumetanide # Leukocytosis - Unclear source of infection, infectious evaluation initiated - Empiric antibiotics started - Vancomycin + Cefepime - Repeat urinalysis - Initial sample likely contaminated (20-50 squamous epithelia) # Deconditioning - Consulted PT # Type II Diabetes Mellitus - Correction scale insulin # Hypothyroidism - Continue home levothyrxine Abran An M.D.
--- NOTE | 2022-06-18 17:40 | PN ---
Date of Progress Note: 06/18/2022 Subjective: Seen by bedside, doing well. No chest pain. Review of Systems: No chest pain. Has some shortness of breath on exertion. No nausea, vomiting, diarrhea. No abdomin al pain. No dysuria, polyuria, or urinary urgency. No skin rash, headache. All other systems revie wed are negative. Physical Examination: Vital Signs: Reviewed. Head and Neck: Pupils are equal, reactive to light. Intact eye movements. No JVD. No cervical lym phadenopathy. Neck is supple. Thyroid is not enlarged. Lungs: Clear to auscultation bilaterally. No rhonchi, wheezing, or crackles. No accessory muscle u se. Heart: Regular rate and rhythm. No extra sounds. Abdomen: Soft, nontender. Bowel sounds positive. No organomegaly. No masses or hernia. No rigidi ty or rebound. Extremities: Some mild edema with significant decreasing peripheral pulses and some ulcerations. Neurologic: Alert, awake, oriented x3. No acute focal deficits appreciated. Lymph Nodes: No cervical or axillary lymphadenopathy. Investigations: Labs reviewed. Assessment And Recommendations: 1.Non-ST elevation myocardial infarction. Troponin peaked at 5600 and it is trending down. We will plan for coronary angiogram tomorrow with percutaneous coronary intervention as indicated. 2.Unhealed ulcers in the lower extremities with decreased pulses, likely significant peripheral vasc ular disease. We will do a peripheral angiogram with runoff tomorrow. 3.Elevated liver enzymes. This is improving, likely due to the episode of hypotension and resolving nicely. SR/MODL Voice ID: [id number] Report ID: [id number]
--- NOTE | 2022-06-19 00:01 | P.PN ---
Subjective Date of Service: 06/17/22 Chief Complaint: ESRD, Volume Overload, shock liver Subjective: Improving (Liver enzymes now coming down with start of Mucomyst (1st decline since admission).) Physical Examination - Vital Signs Temperature: 97.4 F Blood Pressure: 104/71 Pulse: 88 Respirations: 18 Pulse Ox (%): 99 Assessment And Plan - Current Problems (Diagnosis) (1) Shock liver Current Visit: Yes Status: Acute Comment: Improved. (2) Abnormal liver enzymes Current Visit: Yes Status: Acute (3) Tricuspid regurgitation Current Visit: Yes Status: Acute (4) Congestive heart failure (CHF) Current Visit: Yes Status: Acute (5) Obesity Current Visit: Yes Status: Acute (6) Volume overload Current Visit: Yes Status: Acute Qualifiers: Hypervolemia type: other Qualified Code(s): E87.79 - Other fluid overload (7) ESRD (end stage renal disease) Current Visit: Yes Status: Chronic - Plan REC: 1) continue Mucomyst 2) await echocardiogram result 3) maintain BP, possibly reduce Metoprolol (prior h/o transient A fib with RVR in 2019 on Echo then) Physician Review: Patient Assessed, Agree with Above Assessment and Plan
--- NOTE | 2022-06-19 00:02 | P.PN ---
Subjective Date of Service: 06/18/22 Chief Complaint: ESRD, Volume Overload, shock liver Subjective: New changes (Liver enzymes continue to decline on Mucomyst, but NSTEMI diagnosed.) Physical Examination - Vital Signs Temperature: 97.4 F Blood Pressure: 104/71 Pulse: 88 Respirations: 18 Pulse Ox (%): 99 Assessment And Plan - Current Problems (Diagnosis) (1) Shock liver Current Visit: Yes Status: Acute Comment: Improved. (2) Abnormal liver enzymes Current Visit: Yes Status: Acute (3) Tricuspid regurgitation Current Visit: Yes Status: Acute (4) Congestive heart failure (CHF) Current Visit: Yes Status: Acute (5) Obesity Current Visit: Yes Status: Acute (6) Volume overload Current Visit: Yes Status: Acute Qualifiers: Hypervolemia type: other Qualified Code(s): E87.79 - Other fluid overload (7) ESRD (end stage renal disease) Current Visit: Yes Status: Chronic - Plan REC: 1) continue Mucomyst 2) await echocardiogram result 3) maintain BP, possibly reduce Metoprolol (prior h/o transient A fib with RVR in 2019 on Echo then) Physician Review: Patient Assessed, Agree with Above Assessment and Plan
[2022-06-19] MEDS: MELATONIN 5 MG TABLET PO PRN (00:31)
[2022-06-19] MEDS: HEPARIN/D5W 25,000 UNIT/500 ML BAG IV PRN ×2 (01:53→20:34)
[2022-06-19 04:39] LABS: Absolute Lymphocytes (CBC) 1.5 K/uL (0.7-4.9); Lymphocytes % 9.7 % (15.3-44.8); MCV 99.1 fL (80-100); MPV 7.5 fL (7.6-11.3); RBC Red Blood Cell Count 2.82 M/uL (3.86-4.86)
[2022-06-19 05:00] LABS: Bilirubin Total 0.7 mg/dL (0.2-1.0); Phosphorus 6.6 mg/dL (2.5-4.9); Potassium 4.1 mmol/L (3.5-5.1); Protein, Total 6.6 g/dL (6.4-8.2)
[2022-06-19] MEDS ORDERED: FAMOTIDINE 20 MG/2 ML VIAL IV ONE (05:20)
[2022-06-19] MEDS: METOPROLOL XL 25 MG TAB PO SCH ×2 (05:33→17:30)
[2022-06-19] MEDS ORDERED: LIDOCAINE 1% 20 ML MDV ONE (07:10)
[2022-06-19] MEDS ORDERED: HEPA 1000U/500MLS 1,000 UNIT/500 ML BAG IV ONE ×2 (07:10→09:30)
[2022-06-19] MEDS: PANTOPRAZOLE 40MG TABLET PO SCH ×2 (07:30→16:30)
[2022-06-19] MEDS: INSULIN -REGULAR HUMAN 50 UNIT/0.5 ML ML SQ SCH ×4 (07:30→21:54)
[2022-06-19] MEDS: DOCUSATE NA 100 MG CAP PO SCH ×2 (09:00→20:32)
[2022-06-19] MEDS ORDERED: VANCOMYCIN 1.5 GM in NA CHLORIDE 0.9% 500 ML IVPB ONE (09:00)
[2022-06-19] MEDS: BUSPIRONE HCL 5 MG TABLET PO SCH ×2 (09:00→20:32)
[2022-06-19] MEDS ORDERED: VANCOMYCIN 1 GM in NA CHLORIDE 0.9% 250 ML IV SCH (09:00)
[2022-06-19] MEDS: LEVOTHYROXINE SOD 0.075 MG TAB PO SCH (09:00)
[2022-06-19] MEDS ORDERED: FENTANYL CITR 100 MCG/2 ML ONE (09:30)
[2022-06-19] MEDS ORDERED: MIDAZOLAM HCL 2 MG/2 ML INJ ONE (09:31)
[2022-06-19] MEDS ORDERED: NA CHLORIDE 0.9% 0 ML IV ONE (09:31)
[2022-06-19] MEDS ORDERED: ATROPINE SULF 1 MG/10 ML SYR IV ONE (09:31)
[2022-06-19] MEDS ORDERED: NA CHLORIDE 0.9% 500 ML ONE (09:34)
--- NOTE | 2022-06-19 13:54 | P.PN ---
Date of Service: 06/19/22 Subjective Patient is scheduled for cardiac catheterization today. Liver function testing are improving. We will need to do some physical therapy and she may need intermediate facility placement. She had a prolonged hospitalization with numerous issues at have been discovered during hospital stay. Physical Examination - Physical Exam General: Alert, In no apparent distress HEENT: WNL; Respiratory: Diminished Cardiovascular: Regular rate/rhythm, Normal S1 S2 Gastrointestinal: Normal bowel sounds, No tenderness Neurological: No focal deficits Assessment and Plan - Problems (Diagnosis) (1) ESRD (end stage renal disease)/Volume overload Current Visit: Yes Status: Acute (2) Be obesity hypoventilation syndrome/ chronic respiratory failure with hypoxemia Current Visit: Yes Status: Acute (3) Type 2 diabetes mellitus Current Visit: Yes Status: Chronic Qualifiers: Diabetes mellitus tafe lecturer insulin use: with tafe lecturer use Diabetes mellitus complication status: with hyperglycemia Qualified Code(s): E11.65 - Type 2 diabetes mellitus with hyperglycemia; Z79.4 - ballistic technician (current) use of insulin (4) Hypothyroidism Current Visit: Yes Status: Chronic Qualifiers: Hypothyroidism type: acquired Qualified Code(s): E03.9 - Hypothyroidism, unspecified (5) Anemia Current Visit: Yes Status: Acute Qualifiers: Anemia type: due to chronic kidney disease Chronic kidney disease stage: on chronic dialysis Qualified Code(s): N18.6 - End stage renal disease; D63.1 - Anemia in chronic kidney disease; Z99.2 - Dependence on renal dialysis - Plan 1. Cardiac catheterization today 2. Monitor LFTs 3. Strict blood pressure and blood sugar control 4. Outpatient hemodialysis per nephrology 5. Physical therapy evaluation pending cath results 6. GI DVT prophylaxis
[2022-06-19] MEDS: MUPIROCIN 2% OINT 22GM TUBE TOP SCH (20:32)
--- NOTE | 2022-06-19 22:04 | PN ---
Date of Progress Note: 06/19/2022 Chief Complaint: End-stage renal disease, on hemodialysis. Subjective: Patient today underwent cardiac catheterization. During this admission patient was foun d to have elevated cardiac enzymes. She has history of noncompliance with diet and p.o. fluid restri ction. She developed severe fluid overload and troponin was severely elevated up to 5600. The patie nt denies chest pain, palpitations, or syncope. She has history of borderline hypotension. Metoprol ol dose was reduced due to borderline hypotension. Review of Systems: Denies fever or chills. Physical Examination: Lungs: Clear to auscultation bilaterally. Heart: S1, S2. Abdomen: Soft. Extremities. Slight edema. Impression And Plan: 1.End-stage renal disease. The patient will have dialysis after IV contrast exposure. Plan is to r e-evaluate potassium level after IV contrast exposure. Patient had cardiac catheterization and she i s to have a stent placement. 2.Hypertension, currently borderline hypotension. The patient will continue metoprolol. 3.Congestive heart failure and coronary artery disease. Current patient developed cardiogenic shock , non-ST elevation myocardial infarction. Further recommendation from Cardiology. 4.Leukocytosis. Continue current antibiotics and monitor blood culture and urine culture. 5.Chronic obstructive pulmonary disease with exacerbation. Continue treatment with antibiotics and inhaler. FREDDY/RENÉ Voice ID: [id number] Report ID: [id number]
[2022-06-20] MEDS: METOPROLOL XL 25 MG TAB PO SCH ×2 (04:56→17:26)
[2022-06-20 05:53] LABS: MPV 7.6 fL (7.6-11.3)
[2022-06-20 06:14] LABS: Potassium 4.9 mmol/L (3.5-5.1)
[2022-06-20] MEDS: INSULIN -REGULAR HUMAN 50 UNIT/0.5 ML ML SQ SCH ×4 (07:30→20:59)
[2022-06-20] MEDS: DOCUSATE NA 100 MG CAP PO SCH ×2 (08:10→20:39)
[2022-06-20] MEDS: LEVOTHYROXINE SOD 0.075 MG TAB PO SCH (08:10)
[2022-06-20] MEDS: MUPIROCIN 2% OINT 22GM TUBE TOP SCH ×2 (08:10→20:39)
[2022-06-20] MEDS: BUSPIRONE HCL 5 MG TABLET PO SCH ×2 (08:11→20:39)
[2022-06-20] MEDS: HEPARIN/D5W 25,000 UNIT/500 ML BAG IV PRN ×2 (08:11→20:40)
[2022-06-20] MEDS: PANTOPRAZOLE 40MG TABLET PO SCH ×2 (08:12→17:26)
[2022-06-20] MEDS ORDERED: VANCOMYCIN 1.5 GM in NA CHLORIDE 0.9% 500 ML IVPB ONE (09:00)
[2022-06-20] MEDS: ALBUMIN HUMAN 25% 100 ML IV ONE ×2 (11:23→12:10)
--- NOTE | 2022-06-20 12:15 | OP ---
Surgeon: William Uribe MD Guest Experience Captain: Ms. Geovanna Bansal. The patient had been admitted to the hospital on 06/11/2022, non-STEMI with a diagnosis. Echocardiog mitul showed an ejection fraction that was mildly depressed at 50% with a small pericardial effusion an d diastolic dysfunction. Procedure In Detail: She was brought to the floating labor gang supervisor today because of non-STEMI. She was brought in as an inpatient, prepped and draped in the routine sterile fashion. Given Versed and fentanyl for s edation. A 6-[place] sheath introduced in the right common femoral artery successfully using the Seld vanessa technique and 10 cc of Xylocaine. Angiography was done using the diagnostic Nancy catheter l eft and right respectively. She was found to have a normal left main. A 50% long LAD proximal. She had 80% to 90% mid LAD. She had about a 70% distal LAD with good distal runoff. She had PATRICIA 1, co mpletely occluded circumflex, OM lesion. She had about a 70% distal RCA stenosis. Common femoral ar beatriz angiogram was normal. [employer] was used to close the case. The patient tolerated the procedur e well. There were no complications. Blood Loss: 5 cc. Postoperative Diagnosis: Severe coronary artery disease. I will discuss the case further with Dr. Lantigua, review the film with him, and decide the patient is a better candidate for bypass surgery or high risk intervention. She may be a better candidate for b ypass surgery considering she is diabetic. Case was discussed with the family. We will see what Dr. Lantigua says after reviewing the pictures and we will go from there. ROHIT/RENÉ Voice ID: [id number] Report ID: [id number]
[2022-06-20] MEDS: EPOETIN ALFA 10,000 UNIT/ML VIAL IV SCH (15:00)
[2022-06-20] MEDS ORDERED: VANCOMYCIN 1 GM in NA CHLORIDE 0.9% 250 ML IV SCH (17:00)
--- NOTE | 2022-06-20 17:51 | PN ---
Date of Progress Note: 06/20/2022 Subjective: The patient seen on dialysis. The patient was admitted with malfunctioned PermCath. The patient had non-ST elevation SC during the hospitalization. Physical Examination: Vital Signs: Blood pressure 124/58, pulse of 69, afebrile. Chest: Clear to auscultation. Heart: S1, S2. Regular. Abdomen: Soft, nontender. Extremities: No edema. Neurologic: Alert. No focality. Laboratory Data: Hemoglobin 9. Sodium 132, potassium 4.9, bicarb 20, BUN 84, creatinine 7.9, calcium 9.1. Current Medications: The patient on include; 1. Cefepime. 2. Vancomycin. 3. Heparin. 4. Epogen. 5. Metoprolol 12.5. 6. Pepcid. 7. Insulin. Assessment And Plan: 1. End-stage renal disease, was over volume, currently normal volume. We will continue dialysis TTS. 2. Secondary hyperparathyroidism. Continue current treatment. 3. Anemia of chronic kidney disease, stable. Continue XENIA. 4. Over volume, currently normal volume, back to dialysis TTS. 5. Hyponatremia secondary to dilutional, secondary to renal failure. Will be corrected with dialysis. 6. Non-ST elevation myocardial infarction with severe stenosis 50% on the LAD and 90% on mid LAD. The patient needs bypass. Waiting for transfer with followup. Time spent examining the patient [id number] placing order reviewing data lab and radiology discussing the case with the patient discussing the case with the [place] nursing staff and hospitalist more than 35-minute JOSÉ MIGUEL/RENÉ Voice ID: [id number] Report ID: [id number] ASHOK
--- NOTE | 2022-06-20 18:45 | P.PN ---
Subjective Date of Service: 06/20/22 Chief Complaint: ESRD, Volume Overload, shock liver, NSTEMI 4V dz Subjective: New changes (NSTEMI diagnosed with cardiac cath revealing 4 vessel disease. To be transferred to [facility] for CAGB surgery. Shock liver improved. All liver numbers normalizing on Mucomyst therapy.) Review of Systems Unremarkable Physical Examination - Vital Signs Temperature: 97.4 F Blood Pressure: 126/91 Pulse: 81 Respirations: 16 Pulse Ox (%): 98 - Physical Exam General: Alert, In no apparent distress, Oriented x3, Cooperative HEENT: Atraumatic, Normocephalic, PERRLA, EOMI Neck: Supple Respiratory: Normal air movement Cardiovascular: Normal pulses Gastrointestinal: Soft and benign, No tenderness, No rebound, No guarding Neurological: Normal speech, Normal strength at 5/5 x4 extr Assessment And Plan - Current Problems (Diagnosis) (1) Shock liver Current Visit: Yes Status: Acute Comment: Improved. (2) Abnormal liver enzymes Current Visit: Yes Status: Acute (3) Tricuspid regurgitation Current Visit: Yes Status: Acute (4) Congestive heart failure (CHF) Current Visit: Yes Status: Acute (5) Obesity Current Visit: Yes Status: Acute (6) Volume overload Current Visit: Yes Status: Acute Qualifiers: Hypervolemia type: other Qualified Code(s): E87.79 - Other fluid overload (7) ESRD (end stage renal disease) Current Visit: Yes Status: Chronic (8) NSTEMI (non-ST elevated myocardial infarction) Current Visit: Yes Status: Acute - Plan REC: 1) monitor labs 2) GI clinic follow-up after CABG at [facility] Physician Review: Patient Assessed, Agree with Above Assessment and Plan
--- NOTE | 2022-06-20 20:22 | PN ---
Date of Progress Note: 06/19/2022 Subjective: Seen at bedside. No chest pain, status post coronary angiogram. She has severe multive ssel coronary artery disease. Review of Systems: No chest pain and no shortness of breath. No nausea, vomiting, diarrhea. No abdominal pain. No dys uria, polyuria, or urinary urgency. No skin rash, headache. All other systems reviewed, and they ar e negative. Physical Examination: Vital Signs: Reviewed. Head and Neck: Pupils are equal, reactive to light. Intact eye movements. No JVD. No cervical lym phadenopathy. Neck: Supple. Thyroid is not enlarged. Lungs: Clear to auscultation. No rhonchi, wheezing, or crackles. No accessory muscle use. Heart: Regular rate and rhythm. No extra sounds. Abdomen: Soft, nontender. Bowel sounds positive. No organomegaly. No masses or hernia. No rigidi ty or rebound. Extremities: Trace edema bilaterally and decreased pulses. Neurologic: Alert, awake, oriented x3. No acute focal deficits appreciated. Lymph Nodes: No cervical or axillary lymphadenopathy. Investigations: Labs reviewed. Assessment/recommendation: 1.Non-ST elevation myocardial infarction. Continue IV heparin drip. The culprit is the OM 1 branch , which has severe diffuse mid left anterior descending coronary artery disease and distal right reshma nary artery disease. I discussed the findings with the patient. Plan for transfer for coronary bryn ry bypass surgery. Meanwhile, continue IV heparin and baby aspirin. No Plavix. Please make sure th at she does not get Plavix. 2.Dyslipidemia. Continue statin. 3.End-stage renal disease, on hemodialysis. SR/MODL Voice ID: [id number] Report ID: [id number]
--- NOTE | 2022-06-20 20:34 | PN ---
Date of Progress Note: 06/20/2022 Subjective: Seen at the bedside, doing well. No further chest pain. Review of Systems: No chest pain, shortness of breath, orthopnea, cough, nausea, vomiting, diarrhea. All other systems reviewed and are negative. Physical Examination: Vital Signs: Reviewed. Head and Neck: Pupils are equal, reactive to light. Intact eye movements. No JVD. No cervical lymp hadenopathy. Neck: Supple. Thyroid is not enlarged. Lungs: Clear to auscultation bilaterally. No rhonchi, wheezing, or crackles. No accessory muscle u se. Heart: Regular rate and rhythm. No extra sounds. Abdomen: Soft, nontender. Bowel sounds positive. No organomegaly. No masses or hernia. No rigidi ty or rebound. Extremities: No clubbing, cyanosis. Intact pulses. Skin: No rash. Neurologic: Alert, awake. No acute focal deficits appreciated. Lymph Nodes: No cervical or axillary lymphoadenopathy. Investigations: Labs were reviewed. Assessment And Recommendation: 1.Non-ST elevation myocardial infarction, status post coronary angiogram yesterday. She has 3-vesse l coronary artery disease and awaiting a bed for transfer for CABG. Meanwhile, continue IV heparin d rip and baby aspirin only. 2.End-stage renal disease, on hemodialysis. 3.Peripheral vascular disease. She will have an angiogram done at a later time once her cardiac con dition stabilizes. SR/MODL Voice ID: [id number] Report ID: [id number]
--- NOTE | 2022-06-20 23:10 | P.PN ---
Date of Service: 06/20/22 Subjective Patient continues to improve. Clinically she is stable. Awaiting for transfer to [facility]. Spoke with Cardiology and they have already arranged for patient to be transferred to that facility. Physical Examination - Physical Exam General: Alert, In no apparent distress HEENT: WNL; Respiratory: Diminished Cardiovascular: Regular rate/rhythm, Normal S1 S2 Gastrointestinal: Normal bowel sounds, No tenderness Neurological: No focal deficits Assessment and Plan - Problems (Diagnosis) (1) ESRD (end stage renal disease)/Volume overload(resolved) Current Visit: Yes Status: Acute (2) Obesity hypoventilation syndrome/ chronic respiratory failure with hypoxemia Current Visit: Yes Status: Acute (3) Type 2 diabetes mellitus Current Visit: Yes Status: Chronic (4) Hypothyroidism Current Visit: Yes Status: Chronic (5) Shock Liver Current Visit: Yes Status: Acute (6) ACS Current Visit: Yes Status: Acute (7) Generalized weakness Current Visit: Yes Status: Chronic - Plan 1. Cardiac catheterization with multivessel disease-transfer to [facility] 2. Monitor LFTs; improved 3. Strict blood pressure and blood sugar control 4. Hemodialysis per nephrology 5. Physical therapy evaluation on hold pending CABG 6. GI DVT prophylaxis
[2022-06-21 04:58] LABS: MPV 7.8 fL (7.6-11.3)
[2022-06-21] MEDS: METOPROLOL XL 25 MG TAB PO SCH (05:51)
[2022-06-21] MEDS: LEVOTHYROXINE SOD 0.075 MG TAB PO SCH (08:32)
[2022-06-21] MEDS: BUSPIRONE HCL 5 MG TABLET PO SCH (08:32)
[2022-06-21] MEDS: PANTOPRAZOLE 40MG TABLET PO SCH (08:32)
[2022-06-21] MEDS: DOCUSATE NA 100 MG CAP PO SCH (08:32)
[2022-06-21] MEDS: MUPIROCIN 2% OINT 22GM TUBE TOP SCH (08:43)
[2022-06-21] MEDS: HEPARIN/D5W 25,000 UNIT/500 ML BAG IV PRN (08:44)
[2022-06-21] MEDS: INSULIN -REGULAR HUMAN 50 UNIT/0.5 ML ML SQ SCH ×2 (09:15→11:54)
[2022-06-21 10:26] VITALS: BP 112/70; TEMP 97.1; O2SAT 98
--- NOTE | 2022-06-21 12:53 | P.PN ---
Subjective Date of Service: 06/21/22 Chief Complaint: ESRD, Volume Overload, shock liver, NSTEMI 4V dz Subjective: No new changes (Still awaitin transfer to [facility] for CABG.) Review of Systems 10-point ROS is otherwise unremarkable General: Weakness (Improving ) Physical Examination - Vital Signs Temperature: 97.1 F Blood Pressure: 112/70 Pulse: 70 Respirations: 20 Pulse Ox (%): 98 - Physical Exam General: Alert, In no apparent distress, Oriented x3, Cooperative HEENT: Atraumatic, Normocephalic, PERRLA, EOMI Neck: Supple Respiratory: Normal air movement Cardiovascular: Normal pulses Gastrointestinal: Soft and benign, No tenderness, No rebound, No guarding, Other (obese) Neurological: Normal speech, Normal strength at 5/5 x4 extr Assessment And Plan - Current Problems (Diagnosis) (1) Shock liver Current Visit: Yes Status: Acute Comment: Improved. (2) Abnormal liver enzymes Current Visit: Yes Status: Acute (3) Tricuspid regurgitation Current Visit: Yes Status: Acute (4) Congestive heart failure (CHF) Current Visit: Yes Status: Acute (5) Obesity Current Visit: Yes Status: Acute (6) Volume overload Current Visit: Yes Status: Acute Qualifiers: Hypervolemia type: other Qualified Code(s): E87.79 - Other fluid overload (7) ESRD (end stage renal disease) Current Visit: Yes Status: Chronic (8) NSTEMI (non-ST elevated myocardial infarction) Current Visit: Yes Status: Acute - Plan REC: 1) monitor labs 2) GI clinic follow-up after CABG at [facility] Physician Review: Patient Assessed, Agree with Above Assessment and Plan
--- NOTE | 2022-06-21 13:25 | PN ---
Date of Progress Note: 06/21/2022 Subjective: The patient was admitted with abdominal pain, malfunction of Perm-A-Cath. The patient had leukocytosis and had UTI with Enterococcus. The patient was started on antibiotics, started responding. The patient had episode of low blood pressure. Workup showed non-ST elevation FL. The patient had cardiac cath, had severe stenosis more than 2 vessels. The patient planned for transfer for CABG. Physical Examination: Vital Signs: Blood pressure 112/70, pulse of 70, afebrile. Chest: Clear to auscultation. Heart: S1, S2. Regular. Abdomen: Soft, nontender. Extremity: No edema. Neurologic: Alert. No focality. Laboratory Data: Hemoglobin 9, WBC 15.9. Sodium 132, potassium 4, bicarb 22, BUN 56, creatinine 6, calcium 9.4. Current Medications: The patient on include; 1. Cefepime. 2. Vancomycin. 3. Epogen. 4. Metoprolol 12.5. 5. Atorvastatin. 6. Bumex 2 mg b.i.d. 7. Pantoprazole. 8. Docusate. 9. Melatonin. Assessment And Plan: 1. End-stage renal disease. Normal volume. We will continue the patient on hemodialysis TTS. 2. Over volume, currently back to normal volume. Continue dialysis TTS. 3. Hyponatremia dilutional. Will be corrected with dialysis. 4. Anemia of chronic kidney disease. Continue XENIA. 5. Non-ST elevation myocardial infarction. Continue heparin drip. The patient waiting for transfer for coronary artery bypass graft. We will follow up with Cardiology. Time spent examining the patient [id number] placing order reviewing data lab and radiology discussing the case with the patient discussing the case with the athletic team physician nursing staff and hospitalist more than 35-minute JOSÉ MIGUEL/RENÉ Voice ID: [id number] Report ID: [id number] ASHOK
[2022-06-21] MEDS ORDERED: AMOX/K CLAV 500 MG TAB PO SCH (18:00)
--- NOTE | 2022-06-22 08:10 | EKG ---
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
--- NOTE | 2022-06-22 08:10 | EKG ---
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
== END 2022-06-21 15:15 | disposition short-term general hospital (02) | DRG 640 ==
LOC: ER 01:17 → ERHOLD 03:23 → 2ND 05:21 → OBSVTOIN 06-12 21:29
PROVIDERS: ADMIT Hospitalist; ATTEND Hospitalist
PROC: B2011ZZ Plain Radiography of Multiple Coronary Arteries using Low Osmolar Contrast (ICD-10-PCS; principal; 2022-06-19)
DX: E87.70 Fluid overload, unspecified (principal); I21.4 Non-ST elevation (NSTEMI) myocardial infarction; I50.31 Acute diastolic (congestive) heart failure; N18.6 End stage renal disease; R57.0 Cardiogenic shock; K72.00 Acute and subacute hepatic failure without coma; J18.9 Pneumonia, unspecified organism; R65.11 Systemic inflammatory response syndrome (SIRS) of non-infectious origin with acute organ dysfunction; I13.2 Hypertensive heart and chronic kidney disease with heart failure and with stage 5 chronic kidney disease, or end stage renal disease; J96.10 Chronic respiratory failure, unspecified whether with hypoxia or hypercapnia; L97.819 Non-pressure chronic ulcer of other part of right lower leg with unspecified severity; L97.829 Non-pressure chronic ulcer of other part of left lower leg with unspecified severity; T82.41XA Breakdown (mechanical) of vascular dialysis catheter, initial encounter; E11.22 Type 2 diabetes mellitus with diabetic chronic kidney disease; Z99.2 Dependence on renal dialysis; Z91.15 Patient's noncompliance with renal dialysis; Z79.4 Long term (current) use of insulin; E11.40 Type 2 diabetes mellitus with diabetic neuropathy, unspecified; I25.10 Atherosclerotic heart disease of native coronary artery without angina pectoris; E66.9 Obesity, unspecified; Z68.30 Body mass index [BMI] 30.0-30.9, adult; E87.1 Hypo-osmolality and hyponatremia; E87.20 Acidosis, unspecified; D63.1 Anemia in chronic kidney disease; I83.018 Varicose veins of right lower extremity with ulcer other part of lower leg; I83.028 Varicose veins of left lower extremity with ulcer other part of lower leg; E11.65 Type 2 diabetes mellitus with hyperglycemia; E03.9 Hypothyroidism, unspecified; T40.2X5A Adverse effect of other opioids, initial encounter; T42.6X5A Adverse effect of other antiepileptic and sedative-hypnotic drugs, initial encounter
CPT/HCPCS: 36415; 71045; 71250; 76705; 80048; 80053; 80061; 80069; 80076; 80202; 80307; 80329; 81001; 82947; 83605; 83735; 83880; 84132; 84439; 84443; 84484; 85025; 85049; 85610; 85730; 86705; 86706; 86708; 86709; 87040; 87077; 87086; 87088; 87186; 87522; 87811; 90935; 93005; 93306; 93454; 96374; 97110; 97116; 97161; 97530; 99251; 99285; C1893; G0378; J0456; J0461; J0583; J1644; J1815; J1940; J2250; J2270; J2405; J2765; J3010; J3370; J7040; J7050; J7120; J7608; P9047; Q5105; Q9966

== ENCOUNTER 2022-08-08 10:30 | Day surgery (SDC) | payer OTHER ==
[2022-08-04 14:24] LABS: Absolute Lymphocytes (CBC) 0.8 K/uL (0.7-4.9); Lymphocytes % 6.6 % (15.3-44.8); MCV 89.9 fL (80-100); MPV 7.3 fL (7.6-11.3); RBC Red Blood Cell Count 2.78 M/uL (3.86-4.86)
[2022-08-04 14:25] LABS: Potassium 3.9 mmol/L (3.5-5.1)
[2022-08-04 14:26] LABS: Protime INR 1.23
[2022-08-08] MEDS ORDERED: NA CHLORIDE 0.9% 0 ML ONE (10:37)
[2022-08-08] MEDS ORDERED: LIDOCAINE 1% 20 ML MDV ONE (10:38)
[2022-08-08] MEDS ORDERED: HEPA 1000U/500MLS 0 UNIT/0 ML BAG IV ONE (10:38)
[2022-08-08] MEDS ORDERED: FENTANYL CITR 100 MCG/2 ML ONE (10:38)
[2022-08-08] MEDS ORDERED: MIDAZOLAM HCL 2 MG/2 ML INJ ONE (10:39)
[2022-08-08] MEDS ORDERED: HEPARIN 5000 UNIT/ML 1 ML VIAL ONE (10:39)
[2022-08-08] MEDS ORDERED: CLOPIDOGREL 75 MG TABLET ONE (10:39)
[2022-08-08] MEDS ORDERED: HEPARIN 10,000 UNIT/10 ML VIAL IV ONE (10:39)
[2022-08-08] MEDS ORDERED: VERAPAMIL HCL 10 MG/4 ML VIAL IV ONE (10:39)
[2022-08-08] MEDS ORDERED: NITROGLYCERIN 100 MCG/ML SYR (for cath lab use only) IV ONE (10:40)
[2022-08-08] MEDS ORDERED: TICAGRELOR 90 MG TABLET PO ONE (10:40)
[2022-08-08] MEDS ORDERED: ATROPINE SULF 1 MG/10 ML SYR IV ONE (10:40)
[2022-08-08] MEDS ORDERED: NITROGLYCERIN/D5W 0 MG/0 ML BTL IV ONE (10:40)
[2022-08-08 11:02] VITALS: BP 149/82; TEMP 98; O2SAT 98
[2022-08-08] MEDS ORDERED: DEXTROSE 10%-WATER 500 ML IV ONE (11:10)
--- NOTE | 2022-08-08 17:10 | EKG ---
Test Date: 2022-08-04 Test Time: 13:42:39 Senior Reservations Agent: MALVIN MEASUREMENT RESULTS: Intervals: Rate: 89 ME: 164 QRSD: 100 QT: 374 QTc: 455 [place]: P: 80 ME: 164 QRS: 37 T: 141 INTERPRETIVE STATEMENTS: Normal sinus rhythm Nonspecific T wave abnormality Abnormal ECG Compared to ECG 06/17/2022 14:09:35 T-wave abnormality now present Fusion complex(es) no longer present Myocardial infarct finding no longer present Electronically Signed On 08-08-22 17:00:37 E COMMERCE MERCHANT by Imer Lantigua
== END 2022-08-08 11:15 | disposition home or self-care (01) ==
LOC: CCL 10:30
PROVIDERS: ATTEND Internal Medicine
DX: I25.10 Atherosclerotic heart disease of native coronary artery without angina pectoris (principal); R06.02 Shortness of breath; Z53.8 Procedure and treatment not carried out for other reasons; I73.9 Peripheral vascular disease, unspecified; I10 Essential (primary) hypertension; I48.91 Unspecified atrial fibrillation; E11.9 Type 2 diabetes mellitus without complications; E78.5 Hyperlipidemia, unspecified; Z82.49 Family history of ischemic heart disease and other diseases of the circulatory system
CPT/HCPCS: 36415; 80048; 82947; 85025; 85610; 85730; 93005; J0461; J1644; J2001; J2250; J3010; J7040

== ENCOUNTER 2022-08-08 11:29 | Observation (INO) | payer OTHER ==
--- OUTSIDE RECORDS SUMMARY | 2022-08-08 11:40 | XMS REPORT | Continuity of Care Document ---
:1955 Author Organization [facility] t Address [facility] Castaneda [address] [place] [id number] Care Team Providers Name Role Phone SABRINA MORA Primary Care Physician Unavailable Sabrina Mora Attending Clinician Unavailable Forest Schmid Attending Clinician Unavailable Joaquín Myrick Attending Clinician Unavailable Alexandra Arrieta Attending Clinician Unavailable FAUSTO MORAES Attending Clinician Unavailable Adonis Gaytan Attending Clinician Unavailable Eugenio BURROUGHS, Jose Keller Attending Clinician Benjie BURROUGHS, Reji Baldwin Attending Clinician Ce Knutson NP Attending Clinician CARSON IVERSON Attending Clinician Unavailable Yvan BURROUGHS, Jory Nguyen Attending Clinician [phone] Mao ARIAS, Corrina To Attending Clinician [phone] Doctor Unassigned, Cache Attending Clinician Unavailable Funmi Allen MA Attending Clinician Unavailable Karen Calderón Attending Clinician Unavailable Angel Mas Attending Clinician Unavailable Farhan Michel Attending Clinician Maya Valdez MA Attending Clinician Unavailable Aleisha BURROUGHS, Fausto Guadalupe Attending Clinician Pob, Adc Lab Main Attending Clinician Unavailable Only, Adc Test Attending Clinician Unavailable SUSAN WHITE Attending Clinician Unavailable MD TUSHAR REYES Attending Clinician Unavailable TUSHAR REYES Attending Clinician Unavailable Demetrio Christensen CRNA Attending Clinician Tracy Heart MD Attending Clinician BO CARTER Attending Clinician Unavailable Forest Schmid Admitting Clinician Unavailable FAUSTO MORAES Admitting Clinician Unavailable Delmy Ashton Admitting Clinician Unavailable JOSE BECKER Admitting Clinician Unavailable SUSAN WHITE Admitting Clinician Unavailable MD TUSHAR REYES Admitting Clinician Unavailable Fausto Moraes MD Admitting Clinician TUSHAR REYES Admitting Clinician Unavailable Payers Payer Name Policy Type Policy Number Effective Date Expiration Date S tacos TANESHA/BEBETOP [id number] 2020 MCARE ADV 00:00:00 CHOICE PPO MEDICARE PART A [id number] 2020 \\T\\ B 00:00:00 HU[employer] MEDICARE 53 [id number] 2021 Common Sp rachelle 00:00:00 [facility] Medicine Problems Condition Condition Condition Status Onset Resolution Last Treating Co mments Source Name Details Category Date Date Treatment Clinician Date CKD CKD Disease Active Overview: Method i (chronic (chronic 5-10 Formattin kidney kidney 00:00: g of this Hospita disease), disease), 00 note l stage V stage V might be different from the original. Added automatic ally from request for surgery [id number] ESRD (end ESRD (end Disease Active 2019-07 Met hodi stage stage 1-05 st renal renal 00:00: Hospita disease) disease) 00 l on on dialysis dialysis [id number] Unsteady Problem Commo n gait [facility] Arrhythmia Arrhythmia Problem C ommon [facility] [id number] Retinopath Problem Com mon y [facility] [id number] Seasonal Problem Comm on allergies [facility] [id number] PUD Problem Common (peptic Spirit ulcer - [facility] disease) [facility] [id number] Body mass Problem Com mon index Spirit [BMI] - [facility] 38.0-38.9, [facility] [id number] Diabetic Problem Comm on polyneurop Spirit athy - CHI associated St with type [facility] 2 diabetes Medica l mellitus Center [id number] Morbid Problem Commo n 9104 (severe) Spirit obesity - [facility] due to [facility] [id number] Type 2 Problem Common diabetes Spirit mellitus - [facility] with diabetic [facility] chronic Medical kidney Center disease Secondary Secondary Problem Com mon hyperparat hyperparat Sp rachelle hyroidism hyroidism, - C HI not [facility] classified Medica l Center Allergic Non-season Problem Com mon rhinitis al Spirit allergic - [facility] rhinitis, unspecifie [facility] d Medical chronicity Center , unspecif d trigger Dependence Dialysis Problem Com mon on renal patient Spirit dialysis - [facility] Anxiety Anxiety Problem Common about about Spirit health health - [facility] [id number] End stage Problem Comm on renal Spirit disease - [facility] Hypothyroi Hypothyroi Problem C ommon dism dism [facility] Cholelithi Gall Problem Commo n asis bladder Spirit without stones - [facility] obstructio [facility] Hypertensi Hypertensi Problem C ommon on on Spirit [facility] Medicine Type II Uncontroll Problem Comm on diabetes ed type 2 Spiri t mellitus diabetes - [facility] without mellitus complicati with [facility] on insulin Medical therapy Center Mixed Mixed Problem Common hyperlipid hyperlipid Sp rachelle emia emia - [facility] Gastroesop GERD Problem Commo n hageal (gastroeso Spirit reflux phageal - CHI disease reflux St disease) [facility] Vitamin D Vitamin D Problem Com mon deficiency deficiency Sp rachelle - [facility] Carpal Carpal Problem Resolve 2021-08-25 Vt moria tunnel tunnel d 22:23:46 l syndrome syndrome Jacob n (disorder) (disorder) Resolved Problem 08/25/2021 1983 [facility] Problem Resolve 2021-08-25 Memoria delivery [...] 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: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 Latoya joss (disorder) (disorder) Active Problem 08/25/2021 [facility] Hyperlipid Hyperlipi Problem Active 2021-08-25 Memoria emia demia 22:23:46 l (disorder) (disorder) He rmann Active Problem 08/25/2021 [facility] Paresthesi Paresthes Problem Active 2021-08-25 Memoria a ia 22:23:46 l (finding) (finding) Latoya coreas Active Problem 08/25/2021 [facility] Paresthesi Paresthes Problem Active 2021-08-25 Memoria a of hand ia of hand 22:23:46 l (finding) (finding) Latoya joss Active Problem 08/25/2021 [facility] Tremor Tremor Problem Active 2021-08-25 Jairo frida (finding) (finding) 22:23:46 l Active [facility] Problem 08/25/2021 [facility] Allergies, Adverse Reactions, Alerts Allergy Allergy Status Severity Reaction(s) Onset Inactive Treating Comm ents Source Name Type Date Date Clinician Keerthi Cruz Active Other (See Cold Me thodi zine ty to Comments) 09-[address] adverse 00:00: and Hospita reaction 00 passing l s to out drug CODEINE DRUG Active Hallucinates Uni vers INGREDI 03-30 ity of 00:00: [address] Branch Codeine Propensi Active Hallucinatio 2020-0 U nivers ty to ns 9-22 ity of adverse 00:00: [place] reaction 00 Medical s Branch Adhesive Propensi Active Rash Method i Tape-Kendra ty to 5-12 st icones adverse 00:00: Hospita reaction 00 l s to drug Codeine Propensi Active Hallucinatio 2019-0 Other M ethodi ty to ns 5-12 reaction( st adverse 00:00: s): Hospita reaction 00 Anaphylax l s to is drug codeine DA Active U 2000-07 [facility] 08-06 Clear 00:00: [place] 00 [facility] CODEINE DA Active U HALLUCINATIO 2000-07 [facility] N 08-06 Clear 00:00: [place] 00 [facility] No Known DA Active U 2000-07 [facility] Contrast 08-06 Clear Allergie 00:00: Hernandez s 00 [facility] No Known DA Active U 2000-07 [facility] Food 08-06 Clear Allergie 00:00: Hernandez s 00 [facility] No Known DA Active U 2000-07 [facility] Other 08-06 Clear Allergie 00:00: Hernandez s 00 [facility] Opioids Propensi Active Rash Hallucina Meth deonte - ty to 6-17 tions ( st Morphine adverse 00:00: [facility]unts Hospita Analogue reaction 00 craw over l s s to body).Oth drug er reaction( s): Anaphylax ishalluci nations NO KNOWN Drug Active Univers ALLERGIE Class ity of S [facility] codeine codeine Active Memoria l [place] Phenerga Phenerga Active Memori a n n l [place] Tape Tape Active Memoria l [place] prometha prometha Active Unknown Commo n zine zine Spirit - [facility] codeine codeine Active Unknown Common [facility] Family History Family Member Diagnosis Comments Start Date Stop Date Source Natural father [facility] Natural father Hypertension [facility] Natural [facility] Natural mother Diabetes [facility] Natural mother Hyperlipidemia [facility] Natural mother Hypertension [facility] Natural mother Kidney disease [facility] Social History Social Habit Start Date Stop Date Quantity Comments Source History of Tobacco Common Spirit - Use [facility] Exposure to Not sure University of SARS-CoV-2 (event) [facility] Alcohol intake 2022-04-27 2022-04-27 Current drinker Metho dist 00:00:00 00:00:00 of alcohol Hospital (finding) Cigarettes smoked 2022-04-26 2022-04-[address] current (pack per 00:00:00 00:00:00 Hospita l day) - Reported Cigarette 2022-04-26 2022-04-26 [facility] pack-years 00:00:00 00:00:00 Hospital Tobacco use and 2022-04-26 2022-04-26 Smokeless [facility] exposure 00:00:00 00:00:00 tobacco non-user Hospital Social History 2021-02-23 2021-02-23 [facility] 20:24:04 20:24:04 Alcohol Comment 2020-03-23 2020-03-23 RARELY [facility] 00:00:00 00:00:00 Hospital Sex [birth year] At [birth year] [facility] 00:00:00 00:00:00 Hospital Smoking Status Start Date Stop Date Source Unknown if ever smoked [facility] Former Smoker 2022-07-26 00:00:00 2022-07-26 00:00:00 Common S pirit - [facility] Ce nter Never smoked tobacco [facility] Medications Ordered Filled Start Stop Current Ordering [...] 12:56: daily. Hospita tablet 00 l multivit-mi 2022-1 Yes Take by Met hodi n/iron/foli 0-19 [...] ta C 00 daily. l (DIALYVITE ORAL) buPROPion 2021-07 Yes 150mg Q.5D Take 150 [...] ospita 33 :00 needed for l heartburn. famotidine 2021-07 40mg QD Take 40 mg Methodi (PEPCID) 10 0-19 10-[address] MG tablet 08:16: 00:00 nightly as H ospita 33 :00 needed for l heartburn. traMADoL 2021-07 [id number] 50mg Q8H Take 1 Metho di (Ultram) 50 0-19 10-25 tablet (50 s t mg tablet 00:00: 04:59 mg total) Ho spita 00 :00 by mouth l every 8 (eight) hours as needed for moderate pain for up to 5 days .acute pain. traMADoL 2021-07 [id number] 50mg Q8H Take 1 Metho di (Ultram) [...] st MG tablet 00:00: mg total) Hos etna 00 by mouth l nightly. famotidine 2021-07 Yes 40mg QD Take 1 Metho di (PEPCID) 40 0-02 tablet (40 st MG tablet 00:00: mg total) Hos tena 00 by mouth l nightly. lactulose 2021-0 Yes Q.5D Take by Metho di (CHRONULAC) 9-[address] 10 gram/15 00:00: (two) Hospit a mL solution 00 times a l day. lactulose 2-0 Yes Q.5D Take by Metho di (CHRONULAC) 9-[address] 10 gram/15 00:00: (two) Hospit a mL solution 00 times a l day. ciprofloxac 2021- No TAKE 1 Met hodi in HCl 9-13 10-[address] (CIPRO) 250 00:00: 00:00 MOUTH [facility]osp [facility] MG tablet 00 :00 TWICE l DAILY UNTIL ALL TAKEN. ciprofloxac 2021- No TAKE 1 Met hodi in HCl 9-13 10-[address] (CIPRO) 250 00:00: 00:00 MOUTH [facility]osp [facility] MG tablet 00 :00 TWICE l DAILY UNTIL ALL TAKEN. traMADoL 2021- [place] [id number] 50mg Q8H Take 1 Metho di (Ultram) 50 03-06-04 tablet (50 s t mg tablet 00:00: 04:59 mg total) Ho spita 00 :00 by mouth l every 8 (eight) hours as needed for moderate pain for up to 5 days .acute pain. traMADoL [id number] 50mg Q8H Take 1 Metho di (Ultram) 50 03-06-04 tablet (50 s t mg tablet 00:00: 04:59 mg total) Ho spita 00 :00 by mouth l every 8 (eight) hours as needed for moderate pain for up to 5 days .acute pain. ibuprofen Yes Methodi (ADVIL) 600 8-22 st MG tablet 00:00: Hospita 00 l ibuprofen 2021-0 Yes Methodi (ADVIL) 600 8-22 st MG tablet 00:00: Hospita 00 l amoxicillin 0 2021- No Metho di (AMOXIL) 8- 10-17 st 500 MG 00:00: 00:00 Hospita capsule 00 :00 l amoxicillin 2021-0 2021- No Metho di (AMOXIL) 8- 10-17 st 500 MG 00:00: 00:00 Hospita capsule 00 :00 l metOLazone 2021-0 Yes Methodi (ZAROXOLYN) 7-21 st 5 MG tablet 00:00: Hospit a 00 l metOLazone 2021-0 Yes Methodi (ZAROXOLYN) 7-21 st 5 MG tablet 00:00: Hospit a 00 l ciprofloxac 2021- No 500mg QD Take 500 Methodi in HCl 6-06 06-[address] (CIPRO 15:13: 00:00 mouth Hospita ORAL) 12 :00 daily. For l 2 more days ciprofloxac 500mg QD Take 500 Methodi in HCl 606 06-[address] (CIPRO 15:13: 00:00 mouth Hospita ORAL) 12 :00 daily. For l 2 more days busPIRone Yes Methodi (BUSPAR) 5 5-20 st MG tablet 00:00: Hospita 00 l busPIRone Yes Methodi (BUSPAR) 5 5-20 st MG tablet 00:00: Hospita 00 l psyllium Yes 3.4g Take 3.4 g Met hodi (METAMUCIL) 3-[address] 3.4 gram 00:00: Hospita packet 00 l psyllium Yes 3.4g Take 3.4 [...] Silver 8-18 0 l Ultra 20:29: Refill(s) [facility] 00 Claritin Yes 10 mg = 1 Jairo frida 8-18 tab, PO, l 20:29: Daily, PRN [place] 00 Itching / rash / allergy symptoms, # 20 tab, 0 Refill(s) aspirin-ome No 1 tab, PO, Memoria prazole 325 8-18 Daily, 0 l mg-40 mg 20:29: Refill(s) Herm joss oral 00 delayed release tablet Centrum Yes PO, Daily, Jairo frida Silver 8-18 0 l Ultra 20:29: Refill(s) [place] Claritin Yes 10 mg = 1 Jairo frida 8-18 tab, PO, l 20:29: Daily, PRN [place] 00 Itching / rash / allergy symptoms, # 20 tab, 0 Refill(s) Stool Yes PO, Memoria Softener 8-18 Bedtime, 0 l with 20:29: Refill(s) [place] Laxative 00 Stool Yes PO, Memoria Softener 8-18 Bedtime, 0 l with 20:29: Refill(s) [place] Laxative aspirin-ome No 1 tab, PO, Memoria prazole 325 8-18 Daily, 0 l mg-40 mg 20:29: Refill(s) [facility] joss oral 00 delayed release tablet Centrum Yes PO, Daily, Jairo frida Silver 8-18 0 l Ultra 20:29: Refill(s) [place] Claritin Yes 10 mg = 1 Jairo frida 8-18 tab, PO, l 20:29: Daily, PRN [place] 00 Itching / rash / allergy symptoms, # 20 tab, 0 Refill(s) Stool Yes PO, Memoria Softener 8-18 Bedtime, 0 l with 20:29: Refill(s) [place] Laxative cephalexin Yes 500 mg = 1 M emoria 500 mg oral 8-18 cap, PO, l capsule 20:28: QID, # 20 Macey nn 00 cap, 0 Refill(s) furosemide Yes 80 mg = 1 Me moria 80 mg oral 8-18 tab, PO, l tablet 20:28: Daily, # [place] 00 90 tab, 0 Refill(s) Insulin Yes 1 unit, Memoria Lispro 100 8-18 SUB-Q, 0 l UNT/ML 20:28: Refill(s) Jacob pedro Injectable 00 Solution [Humalog] cephalexin Yes 500 mg = 1 M emoria 500 mg oral 8-18 cap, PO, l capsule 20:28: QID, # 20 Macey nn 00 cap, 0 Refill(s) furosemide Yes 80 mg = 1 Me moria 80 mg oral 8-18 tab, PO, l tablet 20:28: Daily, # [place] 00 90 tab, 0 Refill(s) Insulin Yes [...] tab, PO, l tablet 20:27: Daily, # [place] 00 90 tab, 1 Refill(s) Metoprolol Yes [...] Intra-op NaCl 0.9% Yes PRN, Univers (NS) 10-14 Starting ity of injection 17:28: [place] 00 [place] 1228, Medical Until Branch Discontinu ed, Routine, Intra-op neomycin-po Yes PRN, Univer s lymyxin-dex 10-14 Starting ity of amethasone 17:28: [place] 10/14/20 [place] (MAXITROL) 00 at 1228, Medic al 3.5 Until Branch mg/g-10,000 Discontinu unit/g-0.1 ed, % Routine, ophthalmic Intra-op ointment gentamicin Yes PRN, Univers injection 10-14 Starting ity of 17:28: [place] 10/14/20 [place] 00 at 1228, Medical Until Branch Discontinu ed, VIOLETTA, Intra-op eye block Yes PRN, Univers syringe 11 10-14 Starting [...] Intra-op dexamethaso Yes PRN, Univer s ne 4-08 Starting ity of (DECADRON 17:26: [place]14/[place] PHOSPHATE) 00 at 1226, Medic al injection Until Branch Discontinu ed, Routine, Intra-op ceFAZolin Yes PRN, Univers (ANCEF) 4-08 Starting ity of injection 17:25: [place]14/[place] 00 at 1225, Medical Until Branch Discontinu ed, VIOLETTA, Intra-op balanced Yes PRN, Univers salt soln 4-08 Starting ity of no.2 irrig. 17:25: [place] 10/14/20 [place] (BSS) 00 at 1225, Medical ophthalmic Until Branch solution Discontinu ed, Routine, Intra-op insulin Yes 30U inject 30 Unive rs lispro 4-08 Units ity of (HUMALOG 14:34: under the [facility] DESTIN 02 skin 3 Medical KWIKPEN (three) Branch U-100) 100 times unit/mL daily. inph Insulin Yes 45U inject 45 Unive rs Glargine 4-08 Units ity of (LANTUS 14:34: under the [place] SOLOSTAR 02 skin 2 Medical U-100 (two) Branch INSULIN) times 100 unit/mL daily. (3 mL) injection amLODIPine Yes 10mg Take 10 mg U nivers 10 mg 4-08 by mouth ity of tablet 14:34: daily. [place] [address] Medical Branch buPROPion Yes 150mg Take 150 Uni vers SR 150 mg 4-08 mg by ity of SR tablet 14:34: mouth daily. Medical Branch furosemide Yes 160mg Take 160 Un hellen 80 mg 4-08 mg by ity of tablet 14:34: mouth daily. Medical Branch lisinopriL Yes 5mg Take 5 mg Un hellen 5 mg tablet 4-08 by mouth ity of 14:34: daily. [place] [address] Medical Branch metoprolol Yes 50mg Take 50 mg U nivers succinate 4-08 by mouth 2 ity of XL 50 mg 24 14:34: (two) [place] hr tablet 02 times Medical daily. Branch pantoprazol Yes 40mg Take 40 mg Univers e 40 mg EC 4-08 by mouth ity o f tablet 14:34: daily. [place] [address] Medical Branch Levothyroxi Yes 150ug Take 150 U nivers ne 100 mcg 4-08 mcg by ity of capsule 14:34: mouth daily. Medical Branch aspirin 325 Yes 325mg Take 325 U nivers mg tablet 4-08 mg by ity of 14:34: mouth daily. Medical Branch Cholecalcif Yes Take by Uni vers daryl, 4-08 mouth. ity of Vitamin D3, 14:34: [place] (VITAMIN [facility] D3) 25 mcg [place] (1,000 unit) capsule folic Yes Take by Univers acid/multiv 4-08 mouth ity of it-min/lute 14:34: daily. [place] in (CENTRUM 02 Medical SILVER Branch ORAL) mydriatic 2020- No .5mL 0.5 mL, Univ ers #5 10-14 04-08 Right Eye, ity of ophthalmic 12:45: 12:48 ONCE, 1 [place] as solution 00 :00 dose, Krystle Medica l 0.5 mL 10/14/20 at [place] syringe 0745, Routine, DSU Pre-op lactated 2020- No 1000mL at 42 Unive rs ringers IV 10-14 04-08 mL/hr, ity of infusion 12:45: 13:20 1,000 mL, [place] as 1,000 mL 00 :00 IV Medical Infusion, [place] ONCE, 1 dose, Krystle 10/14/20 at 0745, Routine, DSU Pre-op insulin Yes 30U inject 30 Unive rs lispro 4-08 Units ity of (HUMALOG 09:34: under the [place] s DESTIN 02 skin 3 Medical KWIKPEN (three) Branch U-100) 100 times unit/mL daily. inph Insulin Yes 45U inject 45 Unive rs Glargine 4-08 Units ity of (LANTUS 09:34: under the [place] SOLOSTAR 02 skin 2 Medical U-100 (two) Branch INSULIN) times 100 unit/mL daily. (3 mL) injection amLODIPine Yes 10mg Take 10 mg U nivers 10 mg 4-08 by mouth ity of tablet 09:34: daily. [place] Medical Branch buPROPion Yes 150mg Take 150 Uni vers SR 150 mg 4-08 mg by ity of SR tablet 09:34: mouth [place] daily. Medical Branch furosemide Yes 160mg Take 160 Un hellen 80 mg 4-08 mg by ity of tablet 09:34: mouth [place] 02 daily. Medical Branch lisinopriL Yes 5mg Take 5 mg Un hellen 5 mg tablet 4-08 by mouth ity of 09:34: daily. [place] [address] Medical Branch metoprolol Yes 50mg Take 50 mg U nivers succinate 4-08 by mouth 2 ity of XL 50 mg 24 09:34: (two) [place] hr tablet 02 times Medical daily. Branch pantoprazol Yes 40mg Take 40 mg Univers e 40 mg EC 4-08 by mouth ity o f tablet 09:34: daily. [place] Medical Branch Levothyroxi Yes 150ug Take 150 U nivers ne 100 mcg 4-08 mcg by ity of capsule 09:34: mouth [place] daily. Medical Branch aspirin 325 Yes 325mg Take 325 U nivers mg tablet 4-08 mg by ity of 09:34: mouth [place] daily. Medical Branch Cholecalcif Yes Take by Uni vers daryl, 4-08 mouth. ity of Vitamin D3, 09:34: [place] (VITAMIN [address] [place] [address] D3) 25 mcg Branch (1,000 unit) capsule folic Yes Take by Univers acid/multiv 4-08 mouth ity of it-min/lute 09:34: [place]. [place] (CENTRUM 02 Medical SILVER Branch ORAL) insulin 2019-07 Yes 30U [id number] Inject 30 Methodi lispro 1-[id number] (HumaLOG 00:00: 3D under the [facility] U-100 00 skin 3 l Insulin) (three) 100 unit/mL times a injection day before meals. insulin 2019- Yes 30U [id number] Inject 30 Methodi lispro 1-[id number] (HumaLOG 00:00: 3D under the [facility] U-100 00 skin 3 l Insulin) (three) 100 unit/mL times a injection day before meals. insulin 2020-0 Yes 30U inject 30 Unive rs lispro 9-24 Units ity of (HUMALOG 16:37: under the [facility] s DESTIN 58 skin 3 Medical KWIKPEN (three) Branch U-100) 100 times unit/mL daily. inph Insulin 2020-0 Yes 45U inject 45 Unive rs Glargine 9-24 Units ity of (LANTUS 16:37: under the [place] SOLOSTAR 58 skin 2 Medical U-100 (two) Branch INSULIN) times 100 unit/mL daily. (3 mL) injection amLODIPine 2020-0 Yes 10mg Take 10 mg U nivers 10 mg 9-24 by mouth ity of tablet 16:37: daily. [place] [address] Medical Branch buPROPion 2020-0 Yes 150mg Take [...] by mouth ity of tablet 16:37: daily. [place] [address] Medical Branch metoprolol 2020-0 Yes 50mg Take 50 mg U nivers succinate 9-24 by mouth 2 ity of XL 50 mg 24 16:37: (two) [place] hr tablet 58 times Medical daily. Branch pantoprazol 2020-0 Yes 40mg Take 40 mg Univers e 40 mg EC 9-24 by mouth ity o f tablet 16:37: daily. [place] [address] Medical Branch Levothyroxi 2020-0 Yes 150ug Take [...] 9-24 mouth. ity of Vitamin D3, 16:37: [place] (VITAMIN 58 Medical D3) 25 mcg Branch (1,000 unit) capsule folic 2020-0 Yes Take by Univers acid/multiv 9-24 mouth ity of it-min/lute 16:37: [facility]. [place] [facility] 58 Medical SILVER Branch ORAL) insulin 2020-0 Yes 30U inject 30 Unive rs lispro 9-24 Units ity of (HUMALOG 16:37: under the [facility] s DESTIN 58 skin 3 Medical KWIKPEN (three) Branch U-100) 100 times unit/mL daily. inph Insulin 2020-0 Yes 45U inject 45 Unive rs Glargine 9-24 Units ity of (LANTUS 16:37: under the [place] SOLOSTAR 58 skin 2 Medical U-100 (two) Branch INSULIN) times 100 unit/mL daily. (3 mL) injection amLODIPine 2020-0 Yes 10mg Take 10 mg U nivers 10 mg 9-24 by mouth ity of tablet 16:37: daily. [place] [address] Medical Branch buPROPion 2020-0 Yes 150mg Take [...] by mouth ity of tablet 16:37: daily. [place] [address] Medical Branch metoprolol 2020-0 Yes 50mg Take 50 mg U nivers succinate 9-24 by mouth 2 ity of XL 50 mg 24 16:37: (two) [place] hr tablet 58 times Medical daily. Branch pantoprazol 2020-0 Yes 40mg Take 40 mg Univers e 40 mg EC 9-24 by mouth ity o f tablet 16:37: daily. [place] [address] Medical Branch Levothyroxi 2020-0 Yes 150ug Take [...] 9-24 mouth. ity of Vitamin D3, 16:37: [place] (VITAMIN 58 Medical D3) 25 mcg Branch (1,000 unit) capsule folic 2020-0 Yes Take by Univers acid/multiv 9-24 mouth ity of it-min/lute 16:37: daily. [place] in (CENTRUM 58 Medical SILVER Branch ORAL) insulin 2020-0 Yes 30U inject 30 Unive rs lispro 9-24 Units ity of (HUMALOG 16:37: under the [facility] s DESTIN 58 skin 3 Medical KWIKPEN (three) Branch U-100) 100 times unit/mL daily. inph Insulin 2020-0 Yes 45U inject 45 Unive rs Glargine 9-24 Units ity of (LANTUS 16:37: under the [place] SOLOSTAR 58 skin 2 Medical U-100 (two) Branch INSULIN) times 100 unit/mL daily. (3 mL) injection amLODIPine 2020-0 Yes 10mg Take 10 mg U nivers 10 mg 9-24 by mouth ity of tablet 16:37: daily. [place] [address] Medical Branch buPROPion 2020-0 Yes 150mg Take [...] by mouth ity of tablet 16:37: daily. [place] [address] Medical Branch metoprolol 2020-0 Yes 50mg Take 50 mg U nivers succinate 9-24 by mouth 2 ity of XL 50 mg 24 16:37: (two) [place] hr tablet 58 times Medical daily. Branch pantoprazol 2020-0 Yes 40mg Take 40 mg Univers e 40 mg EC 9-24 by mouth ity o f tablet 16:37: daily. [place] [address] Medical Branch Levothyroxi 2020-0 Yes 150ug Take [...] 9-24 mouth. ity of Vitamin D3, 16:37: [place] (VITAMIN [address] [place] [address] D3) 25 mcg Branch (1,000 unit) capsule folic 2020-0 Yes Take by Univers acid/multiv 9-24 mouth ity of it-min/lute 16:37: daily. [place] in (CENTRUM 58 Medical SILVER Branch ORAL) insulin 2020-0 Yes 30U inject 30 Unive rs lispro 9-24 Units ity of (HUMALOG 16:37: under the [facility] s DESTIN 58 skin 3 Medical KWIKPEN (three) Branch U-100) 100 times unit/mL daily. inph Insulin 2020-0 Yes 45U inject 45 Unive rs Glargine 9-24 Units ity of (LANTUS 16:37: under the [place] SOLOSTAR 58 skin 2 Medical U-100 (two) Branch INSULIN) times 100 unit/mL daily. (3 mL) injection amLODIPine 2020-0 Yes 10mg Take 10 mg U nivers 10 mg 9-24 by mouth ity of tablet 16:37: daily. [place] [address] [facility] Branch buPROPion 2020-0 Yes 150mg Take [...] by mouth ity of tablet 16:37: daily. [place] [address] [facility] Branch metoprolol 2020-0 Yes 50mg Take 50 mg U nivers succinate 9-24 by mouth 2 ity of XL 50 mg 24 16:37: (two) [place] hr tablet 58 times Medical daily. Branch pantoprazol 2020-0 Yes 40mg Take 40 mg Univers e 40 mg EC 9-24 by mouth ity o f tablet 16:37: daily. [place] [address] [facility] Branch Levothyroxi 2020-0 Yes 150ug Take [...] 9-24 mouth. ity of Vitamin D3, 16:37: [place] (VITAMIN 58 Medical D3) 25 mcg Branch (1,000 unit) capsule folic 2020-0 Yes Take by Univers acid/multiv 9-24 mouth ity of it-min/lute 16:37: [facility]. [place] [facility] (CEN[facility]UM 58 Medical SILVER Branch ORAL) insulin 2020-0 Yes 30U inject 30 Unive rs lispro 9-24 Units ity of (HUMALOG 13:50: under the [facility] s DESTIN 18 skin 3 Medical KWIKPEN (three) Branch U-100) 100 times unit/mL daily. inph Insulin 2020-0 Yes 45U inject 45 Unive rs Glargine 9-24 Units ity of (LANTUS 13:50: under the [place] SOLOSTAR 18 skin 2 Medical U-100 (two) Branch INSULIN) times 100 unit/mL daily. (3 mL) injection amLODIPine 2020-0 Yes 10mg Take 10 mg U nivers 10 mg 9-24 by mouth ity of tablet 13:50: daily. [place] [address] Medical Branch buPROPion 2020-0 Yes 150mg Take [...] by mouth ity of tablet 13:50: daily. [place] [address] Medical Branch metoprolol 2020-0 Yes 50mg Take 50 mg U nivers succinate 9-24 by mouth 2 ity of XL 50 mg 24 13:50: (two) [place] hr tablet 18 times Medical daily. Branch pantoprazol 2020-0 Yes 40mg Take 40 mg Univers e 40 mg EC 9-24 by mouth ity o f tablet 13:50: daily. [place] [address] Medical Branch Levothyroxi 2020-0 Yes 150ug Take [...] 9-24 mouth. ity of Vitamin D3, 13:50: [place] (VITAMIN 18 Medical D3) 25 mcg Branch (1,000 unit) capsule folic 2020-0 Yes Take by Univers acid/multiv 9-24 mouth ity of it-min/lute 13:50: [place]. [place] (CENTRUM 18 Medical SILVER Branch ORAL) insulin 2020-0 Yes 30U inject 30 Unive rs lispro 9-24 Units ity of (HUMALOG 13:50: under the [facility] s DESTIN 18 skin 3 Medical KWIKPEN (three) Branch U-100) 100 times unit/mL daily. inph Insulin 2020-0 Yes 45U inject 45 Unive rs Glargine 9-24 Units ity of (LANTUS 13:50: under the [place] SOLOSTAR 18 skin 2 Medical U-100 (two) Branch INSULIN) times 100 unit/mL daily. (3 mL) injection amLODIPine 2020-0 Yes 10mg Take 10 mg U nivers 10 mg 9-24 by mouth ity of tablet 13:50: daily. [place] [address] Medical Branch buPROPion 2020-0 Yes 150mg Take [...] by mouth ity of tablet 13:50: daily. [place] [address] Medical Branch metoprolol 2020-0 Yes 50mg Take 50 mg U nivers succinate 9-24 by mouth 2 ity of XL 50 mg 24 13:50: (two) [place] hr tablet 18 times Medical daily. Branch pantoprazol 2020-0 Yes 40mg Take 40 mg Univers e 40 mg EC 9-24 by mouth ity o f tablet 13:50: daily. [place] [address] Medical Branch Levothyroxi 2020-0 Yes 150ug Take 150 U nivers ne 100 mcg 9-24 mcg by ity of capsule 13:50: mouth [place] 18 daily. Medical Branch aspirin 325 2020-0 Yes 325mg Take 325 U nivers mg tablet 9-24 mg by ity of 13:50: mouth [place] 18 daily. Medical Branch Cholecalcif 2020-0 Yes Take by Uni vers daryl, 04-01 mouth. ity of Vitamin D3, 13:50: [place] (VITAMIN 18 Medical D3) 25 mcg Branch [...] s, ONCE ity of 13:04: 13:33 INTRA [place] 00 :17 PROCEDURE, Medical Starting Branch [facility] 04/01/20 at 0804, Until K[place] 04/01/20 at 0833, Routine, Intra-op propofoL IV 2020-0 2020- No Intravenou Univers infusion 04-01 s, ONCE ity of 13:04: 13:33 INTRA [place] 00 :17 PROCEDURE, Medical Starting Branch K[place]le 04/01/20 at 0804, Until [place] 04/01/20 at 0833, Routine, Intra-op lidocaine 2020-0 2020- No ONCE INTRA U nivers 1% 04-01 PROCEDURE, ity of (XYLOCAINE) 13:02: 13:33 Starting [place] 100 mg/10 00 :17 Krystle Medical mL (1 %) 04/01/20 at [facility] h injection 0802, Until Krystle 04/01/20 at 0833, Routine, Intra-op remifentani 2020-0 2020- No Intravenou Univers L (ULTIVA) 04-01 s, ONCE ity o f injection 13:02: 13:33 INTRA [place] 00 :17 PROCEDURE, Medical Starting Branch K[place]le 04/01/20 at 0802, Until [place] 04/01/20 at 0833, Routine, Intra-op lidocaine 2020-0 2020- No ONCE INTRA U nivers 1% 04-01 PROCEDURE, ity of (XYLOCAINE) 13:02: 13:33 Starting [place] 100 mg/10 00 :17 K[place] Medical mL (1 %) 04/01/20 at [facility] h injection 0802, Until K[place]le 04/01/20 at 0833, Routine, Intra-op remifentani 2020-0 2020- No Intravenou Univers L (ULTIVA) 04-0124 s, ONCE ity o f injection 13:02: 13:33 INTRA [place] 00 :17 PROCEDURE, Medical Starting [facility] 04/01/20 at 0802, Until Krystle 04/01/20 at 0833, Routine, Intra-op lactated 2020-0 2020- No IV Univers ringers IV 04-01 Infusion, ity of infusion 13:01: 13:33 [place]UOUS [place] 00 :17 PRN, [facility] Starting [facility] 04/01/20 at 0801, Until [place] 04/01/20 at 0833, Routine, Intra-op lactated 2020-0 2020- No IV Univers ringers IV 04-01 Infusion, ity of infusion 13:01: 13:33 [place] 00 :17 PRN, Medical Starting [facility] 04/01/20 at 0801, Until [place] 04/01/20 at 0833, Routine, Intra-op tetracaine 2020-0 Yes PRN, Univers (PONTOCAINE 04-01 Starting ity of ) 0.5 % 12:53: [place] ophthalmic 04/01/20 at [facility] ical drops [address] [place] [address] Until Discontinu ed, Routine, Intra-op water for 2020-0 Yes PRN, Univers irrigation 04-01 Starting ity o f irrigation 12:53: Krystle [place] solution 04/01/20 at Medic al [address] [place] [address] Until Discontinu ed, Routine, Intra-op NaCl 0.9% 2020-0 Yes PRN, Univers (NS) 04-01 Starting ity of injection 12:52: Krystle [place] 04/01/[address] Until Discontinu ed, Routine, Intra-op neomycin-po 2020-0 Yes PRN, Univer s lymyxin-dex 04-01 Starting ity of amethasone 12:52: [place] (MAXITROL) 00 04/01/20 at [facility] ical [address] [place] [address] mg/g-10,000 Until unit/g-0.1 Discontinu % ed, ophthalmic Routine, ointment Intra-op gentamicin 2020-0 Yes PRN, Univers injection 04-01 Starting ity of 12:52: [place]ryst[place] 04/01/[address] Until Discontinu ed, VIOLETTA, Intra-op eye block 2020-0 Yes PRN, Univers syringe 11 04-01 Starting ity o f mL 12:51: Krystle [place] 04/01/20 at [place] [address], [place] Until Discontinu ed, Intra-op EPINEPHrine 2020-0 Yes PRN, Univer s (PF) 04-01 Starting ity of 1:1,000 (1 12:51: Krystle [place] mg/mL) 04/01/20 at [facility] (ADRENALIN [address] [place] [address] (PF)) Until injection Discontinu ed, Routine, Intra-op DUOVISC 2020-0 Yes PRN, Univers (DUOVISC 04-01 Starting ity of VISCO 12:51: Krystle [place] ELASTIC) 3 04/01/20 at [facility] ical %-4 %(0.[address] [facility], [place] mL) 1 % Until (0.55 mL) Discontinu intraocular ed, injection Routine, Intra-op dexamethaso 2020-0 Yes PRN, Univer s ne 04-01 Starting ity of (DECADRON 12:50: [place] PHOSPHATE) 04/01/20 at [facility] ical injection [address] [place] [address] Until Discontinu ed, Routine, Intra-op ceFAZolin 2020-0 Yes PRN, Univers (ANCEF) 04-01 Starting ity of injection 12:50: [place] 04/01/[address] Until Discontinu ed, VIOLETTA, Intra-op balanced 2020-0 Yes PRN, Univers salt soln 04-01 Starting ity of no.2 irrig. 12:49: [place] (BSS) 04/01/20 at [facility] ophthalmic 07, [place] solution Until Discontinu ed, Routine, Intra-op lactated 2020-0 2020- No 1000mL at [address] [place] [address] rs ringers IV 04-01 09-24 mL/hr, ity of infusion 12:00: 12:17 1,000 mL, [place] as 1,000 mL 00 :00 IV Medical Infusion, [place] ONCE, 1 dose, K[place] 04/01/20 at 0700, Routine, DSU Pre-op mydriatic 2020-0 2020- No .5mL 0.5 mL, Univ ers #5 04-01 Left Eye, ity of ophthalmic 12:00: 12:16 ONCE, 1 [place] solution 00 :00 dose, Krystle Medica l 0.5 mL 04/01/20 at Branch syringe 0700, Routine Lantus 2020-0 Yes 45U Q.5D Inject 45 Method i Solostar 9-[address] U-100 00:00: under the Hospita Insulin 100 00 skin 2 l unit/mL (two) injection times a (pen) day. Lantus 2020-0 Yes 45U Q.5D Inject 45 Method i Solostar 9-[address] U-100 00:00: under the Hospita Insulin 100 00 skin 2 l unit/mL (two) injection times a (pen) day. metoprolol 2020-0 Yes 50mg Q.5D Take 50 mg M ethodi succinate 03-[address] XL 00:00: (two) Hospita (TOPROL-XL) 00 times a l 25 mg 24 hr day. tablet metoprolol 2020-0 Yes 50mg Q.5D Take 50 [...] ta 150 mcg 00 daily. l tablet pantoprazol 2020-0 Yes 40mg QD Take [...] mg 00:00: daily. [facility]ospita tablet 00 l amLODIPine 2020-0 Yes 10mg QD Take 10 mg M ethodi (NORVASC) 8-[address] 10 mg 00:00: daily. Hospita tablet 00 l lisinopriL 2020-0 Yes 5mg QD Take 5 mg [facility] (PRINIVIL) 7-[address] 5 mg tablet 00:00: daily. [facility] 00 l lisinopriL 2020-0 Yes 5mg QD Take 5 mg [facility] (PRINIVIL) 7-[address] 5 mg tablet 00:00: daily. [facility] 00 l furosemide 2020-0 Yes 160mg QD Take 160 [facility] (LASIX) 80 7-[address] mg tablet 00:00: mouth [facility]ospita 00 every l morning. furosemide 2020-0 Yes 160mg QD Take 160 [facility] (LASIX) 80 7-[address] mg tablet 00:00: mouth [facility]osp[facility] 00 every l morning. Insulin Insulin No Insulin Lispro 100 Lispro [...] 1{table QD Ondansetro 4 MG 4 MG t_on n 4 MG e_tongu e_and_a llow_to _dissol [...] 1{table QD Ondansetro 4 MG 4 MG t_on n 4 MG e_tongu e_and_a llow_to _dissol [...] GM t_on_ 1 GM _empty_ stomach } Aspirin 325 [...] 1{table QD Ondansetro 4 MG 4 MG t__ n 4 MG e_tongu e_and_a llow_to _dissol [...] GM t_on_ 1 GM _empty_ stomach } Aspirin 325 [...] GM t_on_ 1 GM _empty_ stomach } amLODIPine amLODIPine [...] GM t_on_an 1 GM _empty_ stomach } buPROPion buPROPion [...] 1{table QD Ondansetro 4 MG 4 MG t_on n 4 MG e_tongu e_and_a llow_to _dissol [...] 80 MG 80 MG t} 80 MG busPIRone busPIRone No 1{table BID busPIRone HCl 5 MG HCl 5 MG t} HCl 5 MG buPROPion buPROPion No 1{table QD buPROPion HCl ER (SR) HCl ER (SR) t_in_th HCl ER 150 MG 150 MG e_morni (SR) 150 ng} MG Cholecalcif Cholecalcif No 1{capsu QD Cholecalci daryl 50 MCG daryl 50 MCG le} ferol 50 (1999) (1999) MCG (1999) Calcitriol Calcitriol No 1{capsu QD Calcitriol 0.25 MCG 0.25 MCG le} 0.25 MCG amLODIPine amLODIPine No 1{table QD amLODIPine Besylate 10 Besylate 10 t} Besylate MG MG 10 MG Lisinopril Lisinopril No Lisinopril 5 MG 5 MG 5 MG Insulin Insulin No Insulin Lispro 100 Lispro 100 Lispro 100 UNIT/ML UNIT/ML UNIT/ML Levothyroxi Levothyroxi No QD Levothyrox ne Sodium ne Sodium ine Sodium 150 MCG 150 MCG 150 MCG Sevelamer Sevelamer No 1{table TID Sevelamer Carbonate Carbonate t_with_ Carbonate 800 MG 800 MG meals} 800 MG Famotidine Famotidine No Famotidine 40 MG 40 MG 40 MG Mupirocin 2 Mupirocin 2 No 1{appli BID Mupirocin % % cation} 2 % Atorvastati Atorvastati No Atorvastat n Calcium n Calcium in Calcium 40 MG 40 MG 40 MG Aspirin 81 Aspirin 81 No 1{table QD Aspirin 81 81 MG 81 MG t} 81 MG Metoprolol Metoprolol No Metoprolol Tartrate 25 Tartrate 25 Tartrate MG MG 25 MG Furosemide Furosemide No 1{table QD Furosemide 80 MG 80 MG t} 80 MG Loratadine Loratadine No 1{table QD Loratadine 10 MG 10 MG t} 10 MG Pantoprazol Pantoprazol No 1{table QD Pantoprazo e Sodium 40 e Sodium 40 t} le Sodium MG MG 40 MG Metoprolol Metoprolol No Metoprolol Succinate Succinate Succinate ER 50 MG ER 50 MG ER 50 MG Insulin Insulin No Insulin Glargine Glargine Glargine 100 UNIT/ML 100 UNIT/ML 100 UNIT/ML Midodrine Midodrine No 1{table BID Midodrine HCl 5 MG HCl 5 MG t} HCl 5 MG Ticagrelor Ticagrelor No 1{table BID Ticagrelor 90 MG 90 MG t} 90 MG busPIRone busPIRone No 1{table BID busPIRone HCl 5 MG HCl 5 MG t} HCl 5 MG buPROPion buPROPion No 1{table QD buPROPion HCl ER (SR) HCl ER (SR) t_in_ HCl ER 150 MG 150 MG e_morni (SR) 150 ng} MG Cholecalcif Cholecalcif No 1{capsu QD Cholecalci daryl 50 MCG daryl 50 MCG le} ferol 50 (1999 [place]) (1999) MCG (1999) Calcitriol Calcitriol No 1{capsu QD Calcitriol 0.25 MCG 0.25 MCG le} 0.25 MCG amLODIPine amLODIPine No 1{table QD amLODIPine Besylate 10 Besylate 10 t} Besylate MG MG 10 MG Lisinopril Lisinopril No Lisinopril 5 MG 5 MG 5 MG Insulin Insulin No Insulin Lispro 100 Lispro 100 Lispro 100 UNIT/ML UNIT/ML UNIT/ML Levothyroxi Levothyroxi No QD Levothyrox ne Sodium ne Sodium ine Sodium 150 MCG 150 MCG 150 MCG Sevelamer Sevelamer No 1{table TID Sevelamer Carbonate Carbonate t_with_ Carbonate 800 MG 800 MG meals} 800 MG Famotidine Famotidine No Famotidine 40 MG 40 MG 40 MG Mupirocin 2 Mupirocin 2 No 1{appli BID Mupirocin % % cation} 2 % Atorvastati Atorvastati No Atorvastat n Calcium n Calcium in Calcium 40 MG 40 MG 40 MG Aspirin 81 Aspirin 81 No 1{table QD Aspirin 81 81 MG 81 MG t} 81 MG Metoprolol Metoprolol No Metoprolol Tartrate 25 Tartrate 25 Tartrate MG MG 25 MG Furosemide Furosemide No 1{table QD Furosemide 80 MG 80 MG t} 80 MG Loratadine Loratadine No 1{table QD Loratadine 10 MG 10 MG t} 10 MG Pantoprazol Pantoprazol No 1{table QD Pantoprazo e Sodium 40 e Sodium 40 t} le Sodium MG MG 40 MG Metoprolol Metoprolol No Metoprolol Succinate Succinate Succinate ER 50 MG ER 50 MG ER 50 MG Insulin Insulin No Insulin Glargine Glargine Glargine 100 UNIT/ML 100 UNIT/ML 100 UNIT/ML Midodrine Midodrine No 1{table BID Midodrine HCl 5 MG HCl 5 MG t} HCl 5 MG Ticagrelor Ticagrelor No 1{table BID Ticagrelor 90 MG 90 MG t} 90 MG Pantoprazol Pantoprazol No 1{table QD Pantoprazo [...] 10 MG 10 MG t} 10 MG Immunizations Ordered Immunization Filled Immunization Date Status Commen ts Source Name Name [employer] COVID-19 [facility] 2021-07-27 Completed Meth odist VACCINATION 00:00:00 [facility] PFIZER COVID-19 MRNA 2021-07-27 Completed Meth odist VACCINATION 00:00:00 [facility] PFIZER COVID-19 MRNA 2021-02-25 Completed Meth odist VACCINATION 00:00:[address] [facility] COVID-19 MRNA 2021-02-25 Completed Meth odist VACCINATION 00:00:00 [facility] PFIZER COVID-19 MRNA 2021-01-06 Completed Meth odist VACCINATION 00:00:00 [facility] PFIZER COVID-19 [facility] 2021-01-06 Completed Meth odist VACCINATION 00:00:00 Hospital Vital Signs Vital Name Observation Time Observation Value Comments Source height 2022-02-27 11:20:00 66.0 [in_i] Common S pirit [facility] weight 2022-02-27 11:20:00 236.6 [lb_av] [facility] temperature 2022-02-27 11:20:00 97.2 [degF] [facility] bmi 2022-02-27 11:20:00 38.18 kg/m2 [facility] oximetry 2022-02-27 11:20:00 94 % [facility] respiratory rate 2022-02-27 11:20:00 16 /min Comm on [facility] blood pressure 2022-02-27 11:20:00 138 mm[Hg] Common [facility] - systolic [facility] blood pressure 2022-02-27 11:20:00 76 mm[Hg] [facility] - diastolic [facility] height 2022-02-27 11:00:00 66.0 [in_i] [facility] weight 2022-02-27 11:00:00 236.6 [lb_av] [facility] temperature 2022-02-27 11:00:00 97.2 [degF] [facility] bmi 2022-02-27 11:00:00 38.18 kg/m2 [facility] oximetry 2022-02-27 11:00:00 93 % [facility] respiratory rate 2022-02-27 11:00:00 16 /min Comm on [facility] blood pressure 2022-02-27 11:00:00 138 mm[Hg] [facility] systolic [facility] blood pressure 2022-02-27 11:00:00 76 mm[Hg] [facility] diastolic [facility] Systolic blood 2020-10-14 14:10:00 120 mm[Hg] Univer sity of pressure [facility] Diastolic blood 2020-10-14 14:10:00 65 mm[Hg] Unive rsity of pressure [facility] Heart rate 2020-10-14 14:10:00 81 /min [facility] Body temperature 2020-10-14 14:10:00 36.06 [facility] 2020-10-14 14:10:00 13 /min [facility] O[facility] saturation in 2020-10-14 14:10:00 99 /min [facility] blood by [facility] Pulse oximetry Branch Body height 2020-10-01 18:42:00 167.6 cm [facility] Body weight 2020-10-01 18:42:00 108.4 kg [facility] [place] [facility] BMI 2020-10-01 18:42:00 38.59 kg/m2 [facility] [place] [facility] Systolic blood 2020-10-14 14:10:00 120 mm[Hg] Univer sity of pressure [place] [facility] Diastolic blood 2020-10-14 14:10:00 65 mm[Hg] Unive rsity of pressure [place] [facility] Heart rate 2020-10-14 14:10:00 81 /min [facility] [place] [facility] Body temperature 2020-10-14 14:10:00 36.06 Katharina Univ ers[facility] [place] [facility] Respiratory rate 2020-10-14 14:10:00 13 /min Univ [facility] [place] [facility] Oxygen saturation in 2020-10-14 14:10:00 99 /min [facility] of Arterial blood by [place] [facility] Pulse oximetry Branch Body height 2020-10-01 18:42:00 167.6 cm [facility] [place] [facility] Body weight 2020-10-01 18:42:00 108.4 kg [facility] [place] [facility] BMI 2020-10-01 18:42:00 38.59 kg/m2 [facility] [place] [facility] Systolic blood 2020-04-01 13:55:00 113 mm[Hg] Univer sity of pressure [place] [facility] Diastolic blood 2020-04-01 13:55:00 56 mm[Hg] Unive rsity of pressure [place] [facility] Heart rate 2020-04-01 13:55:00 63 /min [facility] [place] [facility] Body temperature 2020-04-01 13:55:00 36.11 Katharina Univ [facility] [place] [facility] Oxygen saturation in 2020-04-01 13:50:00 100 /min University of Arterial blood by [place] [facility] jose Pulse oximetry Branch Respiratory rate 2020-04-01 13:45:00 18 /min Univ [facility] [place] [facility] Body height 2020-03-30 17:15:00 167.6 cm [facility] [place] [facility] Body weight 2020-03-30 17:15:00 108.41 kg [facility] [place] [facility] BMI 2020-03-30 17:15:00 38.58 kg/m2 [facility] [place] [facility] Systolic blood 2020-04-01 13:55:00 113 mm[Hg] Univer sity of pressure [facility] Diastolic blood 2020-04-01 13:55:00 56 mm[Hg] Unive rsity of pressure [facility] Heart rate 2020-04-01 13:55:00 63 /min [facility] Body temperature 2020-04-01 13:55:00 36.11 Katharina [facility] in 2020-04-01 13:50:00 100 /min [facility] Arterial blood by [facility] Pulse oximetry Branch Respiratory rate 2020-04-01 13:45:00 18 /min [facility] Body height 2020-03-30 17:15:00 167.6 cm [facility] Body weight 2020-03-30 17:15:00 108.41 kg [facility] BMI 2020-03-30 17:15:00 38.58 kg/m2 [facility] Respiratory rate 2020-04-01 13:32:00 18 /min [facility] Respiratory rate 2020-04-01 13:32:00 18 /min [facility] Heart rate 2022-04-26 17:30:00 76 /min [facility] [place] [facility] Oxygen saturation in 2022-04-26 17:30:00 93 /min [facility] Arterial blood by Pulse oximetry Systolic blood 2022-04-26 17:20:00 139 mm[Hg] Method [facility] pressure Diastolic blood 2022-04-26 17:20:00 67 mm[Hg] [facility] pressure Respiratory rate 2022-04-26 17:20:00 16 /min [facility] Body temperature 2022-04-26 17:00:00 36.44 Katharina [facility] Body height 2022-04-24 17:06:00 167.6 cm [facility] [place] [facility] Body weight 2022-04-24 17:06:00 110.224 kg [facility] [place] [facility] BMI 2022-04-24 17:06:00 39.22 kg/m2 [facility] [place] [facility] Systolic (mm Hg) 2021-02-23 20:05:00 Jairo rial [place] Diastolic (mm Hg) 2021-02-23 20:05:00 Mem orial [facility] Heart Rate 2021-02-23 20:05:00 Yakov Saucedo Respitory Rate 2021-02-23 20:05:00 Anitajessica kaushal Saucedo Height 2021-02-23 20:05:00 162.56 cm [facility] Weight 2021-02-23 20:05:00 [facility] BMI Calculated 2021-02-23 20:05:00 Sriram Larkin Procedures Procedure Date / Time Performing Source Performed Clinician [id number] 2022-07-06 [facility] 00:00:00 [facility] [id number] 2022-07-04 [facility] 00:00:00 [facility] [id number] 2022-07-01 [facility] 00[facility]00:00 [facility] [id number] 2022-06-29 [facility] 00:00:00 [facility] [id number] 2022-06-28 [facility] 00:00:00 [facility] [id number] 2022-06-27 [facility] 00:00:00 [facility] [id number] 2022-06-27 [facility] 00:00:00 [facility] [id number] 2022-06-27 [facility] 00:00:00 [facility] [id number] 2022-06-27 [facility] 00:00:00 [facility] [id number] 2022-06-26 [facility] 00:00:00 [facility] [id number] 2022-06-26 [facility] 00:00:00 [facility] [id number] 2022-06-26 [facility] 00:00:00 [facility] [id number] 2022-06-26 [facility] 00:00:00 [facility] [id number] 2022-06-26 [facility] 00:00:00 [facility] [id number] 2022-06-24 [facility] 00:00:00 [facility] [id number] 2022-06-23 [facility] 00:00:00 [facility] [id number] 2022-06-22 [facility] 00:00:00 [facility] POC GLUCOSE 2022-04-26 [facility] 16:04:00 E. PA AN ELECTIVE ENDOTRACHEAL 2022-04-26 [place], Mariely M [facility] AIRWAY 15:12:00 LAPAROSCOPIC REMOVAL OR 2022-04-26 [facility] REPOSITIONING OF PERITONEAL 14:56:00 E. DIALYSIS CATHETER ESTIMATED GFR 2022-04-26 [facility] pital 13:00:00 E. POC PANEL 2022-04-26 [facility] pital 13:00:00 E. POC GLUCOSE 2022-03-06 [facility] pital 16:00:00 E. SURGICAL PATHOLOGY REQUEST 2022-03-06 [facility] 15:28:00 E. POC GLUCOSE 2022-03-06 [facility] pital 15:23:00 E. ANESTHESIA INTUBATION 2022-03-06 [facility] 12:57:00 CHOLECYSTECTOMY, LAPAROSCOPIC 2022-03-06 [facility] 12:44:00 E. INSERTION, CATHETER, 2022-03-06 [facility] DIALYSIS, PERITONEAL, 12:44:00 E. LAPAROSCOPIC ESTIMATED GFR [facility] E. POC PANEL [facility]22[facility]03-06 [facility] 11:50:00 E. BASIC METABOLIC PANEL 2022-03-06 [facility] 11:40:00 ESTIMATED GFR 2022-03-06 [facility] 11:40:00 CBC WITH PLATELET AND 2022-03-01 [facility] DIFFERENTIAL 18:18:00 HEMOGLOBIN A1C 2022-03-01 [facility] 18:18:00 PARTIAL THROMBOPLASTIN TIME 2022-03-01 [facility] (PTT) 18:18:00 PROTHROMBIN TIME WITH INR 2022-03-01 [facility] 18:18:00 REFERRAL- REQUEST/RESPONSE 2022-02-07 Doctor [facility] [place] 05:01:00 [facility] ECG PRE/POST OP 2021-12-12 Ernestina [facility] 20:54:02 CBC WITH PLATELET AND 2021-12-12 LichaJoseErnestinaregan Parrish [facility] DIFFERENTIAL 20:25:00 HEMOGLOBIN A1C 2021-12-12 LichaErnestina balderas [facility] 20:25:00 TYPE AND SCREEN 2021-12-12 [facility] 20:25:00 PHACOEMULSIFICATION OF 2020-10-[facility] 13:33:00 [facility] LENS IMPLANT POCT GLUCOSE (AUTOMATED) 2020-10-14 [facility] 12[facility]38:00 [facility] POCT GLUCOSE(AGE >30DAYS) 2020-10-14 Anita Edwards [facility] 12:35:00 Medical Branch ASSIGNMENT OF BENEFITS 2020-10-12 Doctor Unassigned, [facility] 16:32:53 [facility] POCT GLUCOSE(AGE >30DAYS) 2020-04-01 Bora Skinner [facility] 12:03:00 Medical Branch ASSIGNMENT OF BENEFITS 2020-03-30 Doctor Unassigned, [facility] 16:01:28 [facility] NOTICE OF BILLING PRACTICES 2020-03-23 Doctor Unassigned, [facility] FOR MEDICARE PATIENTS 20:49:43 [facility] PATIENT FINANCIAL POLICY 2020-03-23 Doctor Unassigned, [facility] 20:49:19 [facility] NO SHOW OR MISSED APPOINTMENT 2020-03-23 Doctor Unassigned, [facility] POLICY ACKNOWLEDGEMENT 20:48:59 [facility] NOTICE OF PRIVACY PRACTICES 2020-03-23 Doctor Unassyossi, [facility] 20:48:48 [facility] CONSENT/REFUSAL FOR DIAGNOSIS 2020-03-23 Doctor Unassigned, [facility] AND TREATMENT 20:48:30 [facility] ASSIGNMENT OF BENEFITS 2020-03-23 Doctor Unassigned, [facility] 20:48:19 [facility] PHYSICIAN ORDERS 2020-03-23 Doctor Unassigned, [employer] [facility] 05:01:00 [facility] Knee replacement<sup>2</sup> Mem orial Lewis Fusion<sup>1</sup> [facility] fusion [facility] Plan of Care Planned Activity Planned Date Details Comments Source Future Scheduled 2022-07-[address] [facility] Test 00:00:00 (12+) [code = Medical Center DEPRESSION SCREENING (12+)] Future Scheduled 2022-07-09 FALLS RISK SCREENING [facility] Test 00:00:00 [code = FALLS RISK Medical C enter SCREENING] Future Scheduled 2022-06-22 Hepatitis C screening [facility] Test 00:46:40 (procedure) [code = 990637453] Future Scheduled 2022-06-22 SHINGLES VACCINES (1 Met [facility] Test 00:46:40 of 2) [code = SHINGLES VACCINES (1 of 2)] Future Scheduled 2022-06-22 BREAST CANCER [facility] Test 00:46:40 SCREENING [code = BREAST CANCER SCREENING] Future Scheduled 2022-06-22 COLONOSCOPY SCREENING [facility] Test 00:46:40 [code = COLONOSCOPY SCREENING] Future Scheduled 2022-06-22 65+ [facility]AL [facility] 00:46:40 VACCINE (3 - PCV) [code = 65+ PNEUMOCOCCAL VACCINE (3 - PCV)] Future Scheduled 2022-06-22 INFLUENZA VACCINE Method [facility] Test 00:46:40 [code = INFLUENZA VACCINE] Future Scheduled 2022-06-11 HEPATITIS B VACCINES Met [facility] Test 01:18:56 (1 of 3 - 3-dose series) [code = HEPATITIS B VACCINES (1 of 3 - 3-dose series)] Future Scheduled 2022-06-11 Hepatitis C screening [facility] Test 01:18:56 (procedure) [code = 410735589] Future Scheduled 2022-06-11 SHINGLES VACCINES (1 Met [facility] Test 01:18:56 of 2) [code = SHINGLES VACCINES (1 of 2)] Future Scheduled 2022-06-11 BREAST CANCER [facility] Test 01:18:56 SCREENING [code = BREAST CANCER SCREENING] Future Scheduled 2022-06-11 COLONOSCOPY SCREENING [facility] Test 01:18:56 [code = COLONOSCOPY SCREENING] Future Scheduled 2022-06-11 65[facility] 01:18:56 VACCINE (3 - PCV) [code = 65+ PNEUMOCOCCAL VACCINE (3 - PCV)] Future Scheduled 2022-06-11 INFLUENZA VACCINE [facility] Test 01:18:56 [code = INFLUENZA VACCINE] Future Scheduled 2022-04-[address] [facility] 00:00:00 WELLNESS (YEAR 2 or Medical Center FIRST YEAR if no IPPE) [code = MEDICARE ANNUAL WELLNESS (YEAR 2 or FIRST YEAR if no IPPE)] Future Scheduled 2022-03-09 INFLUENZA VACCINE (#1) [facility] 00:00[facility]00 [code = INFLUENZA Medical Ce nter VACCINE (#1)] Future Scheduled 2021-02-15 PNEUMOCOCCAL 65+ YRS [facility] Test 00:00:00 (1 - PCV) [code = Medical Ce nter PNEUMOCOCCAL 65+ YRS (1 - PCV)] Future Scheduled 2006-02-15 SHINGLES VACCINES ([address] [facility] Test 00:00:00 of 2) [code = SHINGLES Medic al Center VACCINES (1 of 2)] Future Scheduled 1975-02-15 DTAP/TDAP/TD [facility]ACCINES [facility] 00:00:00 (1 - Tdap) [code = Medical C enter DTAP/TDAP/TD VACCINES (1 - Tdap)] Future Scheduled 1974-02-15 HEPATITIS C SCREENING [facility] 00:00:00 [code = HEPATITIS C Medical Center SCREENING] Future Scheduled [address] [facility] Test 00:00:00 Counseling and Medical Cente r Screening (12+) [code = Tobacco Cessation Counseling and Screening (12+)] Future Scheduled 1956 COVID-19 VACCINE (#1) [facility] 00:00:00 [code = COVID-[address] VACCINE (#1)] Future Scheduled [address] [facility] 00:[facility]:00 malignant neoplasm of Medica l Center colon (procedure) [code = 134653455] Future Scheduled 1956 Sigmoidoscopy [code = [facility] 00:00[facility] Sigmoidoscopy] Medical Cente r Future Scheduled [address] [facility] 00:00:00 malignant neoplasm of [facility]ica l Center breast (procedure) [code = 941704598] Future Scheduled [address] [facility] 00:00:00 (combo) [code = CT Medical C enter Colonography (combo)] Future Scheduled [address] [facility] Test 00:00:00 malignant neoplasm of [facility] colon (procedure) [code = 771233129] Future Scheduled [address] [facility] Test 00:00:00 malignant neoplasm of [facility] colon (procedure) [code = 438226101] Future Scheduled 1956 DXA SCAN [code = DXA [facility] Test 00:00:00 SCAN] [facility] Future Scheduled [address] [facility] Test 00:00:00 malignant neoplasm of [facility] colon (procedure) [code = 230827911] Encounters Start End Encounter Admission Attending Care Care Encounter Source Date/Time Date/Time Type Type Clinicians Facility Department ID 2022-08-04 Outpatient Mora, STLMLC STLC [id number] Common 13:26:01 [facility] [address] [facility] 2022-08-03 Outpatient Mora, STLMLC STLMLC [id number] Common 14:53:01 [place] [id number] [facility] 2022-07-25 Outpatient Mora, STLMLC STLMLC [id number] Common 15:59:02 [place] [id number] [facility] 2022-07-24 Outpatient Mora, STLMLC STLMLC [id number] Common 07:39:00 [place] [id number] [facility] 2022-07-19 Outpatient Mora, STLMLC STLMLC [id number] Common 08:46:01 [place] [id number] [facility] 2022-07-15 Inpatient AR Schmid, JUSTINECL ADMI [id number] [facility] 11:05:[address] 2022-06-20 [facility] [id number] [facility] 00:00:00 [facility] 2022-06-15 Outpatient Mora, STLMLC STLMLC [id number] Common 08:26:02 [facility] [address] [facility] 2022-05-25 Outpatient Mora, STLMLC STLMLC [id number] Common 11:25:01 [facility] 2022-02-27 Outpatient Mora, STLMLC STLMLC [id number] Common 10:42:02 [facility] 2022-02-03 Outpatient Myrick, STLMLC STLMLC [id number] Common 12:12:00 Avnee [facility] 2022-01-31 Outpatient Myrick, STLMLC STLMLC [id number] Common 12:38:00 Avnee [facility] 2021-12-02 Outpatient Myrick, STLMLC STLMLC [id number] Common 15:52:01 Avnee [facility] 2021-12-01 Outpatient Myrick, STLMLC STLMLC [id number] Common 10:24:03 Avnee [facility] 2021-11-21 Outpatient Myrick, STLMLC STLMLC [id number] Common 10:05:12 Avnee [facility] 2021-11-08 Outpatient Myrick, STLMLC STLMLC [id number] Common 08:37:01 Avnee [facility] 2021-11-04 Outpatient Myrick, STLMLC STLMLC [id number] Common 14:15:04 Avnee [facility] 2021-10-31 Outpatient Arrieta, Na STLMLC STLMLC [id number] Common 09:40:02 [facility] 2021-05-08 Outpatient Estevan MORAES AKEBENEZER OPH [id number] Univers 08:53:46 FAUSTO adam [facility] 2021-05-06 Outpatient Estevan MORAES [facility] [id number] Univers 18:47:42 FAUSTO agus [facility] 2022-07-26 2022-07-26 (TEL) STLMLC STLMLC [id number] Co mmon 00:00:00 00:00:00 [facility] 2022-07-13 2022-07-13 (TEL) STLMLC STLMLC [id number] Co mmon 00:00:00 00:00:00 [facility] 2022-06-22 2022-07-07 Inpatient UR Adonis Gaytan [facility].01 G001 [id number] [facility] 09:01:00 17:11:00 00 [facility] 2022-06-08 2022-06-08 (TEL) STLMLC STLMLC [id number] Co mmon 00:00:00 00:00:00 [facility] 2022-05-31 2022-05-31 (TEL) STLMLC STLMLC [id number] Co mmon 00:00:00 00:00:00 [facility] 2022-04-26 2022-04-26 [facility], 1.2.840.1 [id number] 21 [id number] Methodi 06:55:00 12:55:00 Encounter Jose Keller 81963.1.[address] 3.430.2.7 Hospit a .3.498169 l .8 2022-04-26 2022-04-26 [facility] 1.2.840.1 [id number] 21 [id number] Methodi 06:55:00 12:55:00 Encounter Jose Keller 50048.1.[address] 3.430.2.7 Hospit a .3.895581 l .8 2022-04-26 2022-04-26 Anesthesia Reji Waldrop 1.2.840.1 1 [id number] Methodi 09:56:00 11:03:00 Event Ce Knutson 16358.1.[address] 3.430.2.7 Hospit a .3.640049 l .8 2022-04-26 2022-04-26 Anesthesia Reji Waldrop 1.2.840.1 1 [id number] Methodi 09:56:00 11:03:00 Event Ce Knutson 94434.1.[address] 3.430.2.7 Hospit a .3.910717 l .8 2022-04-26 2022-04-26 Surgery Oppermann, 1.2.840.1 [id number] 882 [id number] Methodi 09:15:00 10:45:00 Jose E. 99645.1.1 677 s t 3.430.2.7 Hospit a .3.753257 l .8 2022-04-26 2022-04-26 Surgery Oppermann, 1.2.840.1 [id number] 020 [id number] Methodi 09:15:00 10:45:00 Jose E. 38325.1.1 677 s t 3.430.2.7 Hospit a .3.762770 l .8 2022-04-26 2022-04-26 Travel 1.2.840.1 1.2.510.219 7531 097556 Methodi 00:00:00 00:00:[address] 3.430.2.7 0.2.7.3.698 Ho spita .3.074616 084.8 l .8 2022-04-26 2022-04-26 Travel 1.2.840.1 1.2.469.361 5663 773244 Methodi 00:00:00 00:00:[address] 3.430.2.7 0.2.7.3.698 Ho spita .3.167556 084.8 l .8 2022-04-24 2022-04-24 Travel 1.2.840.1 1.2.105.368 0691 840103 Methodi 00:00:00 00:00:[address] 3.430.2.7 0.2.7.3.698 Ho spita .3.765852 084.8 l .8 2022-04-24 2022-04-24 Travel 1.2.840.1 1.2.501.327 6804 787079 Methodi 00:00:00 00:00:[address] 3.430.2.7 0.2.7.3.698 Ho spita .3.372020 084.8 l .8 2022-04-21 2022-04-21 Prep for Oppermann, 1.2.840.1 [id number] 21 [id number] Methodi 00:00:00 00:00:00 Surgery Jose E. 35526.1.1 940 s t 3.430.2.7 Hospit a .3.382817 l .8 2022-04-21 2022-04-21 Orders Oppermann, 1.2.840.1 [id number] 072 [id number] Methodi 00:00:00 00:00:00 Only Jose E. 38971.1.1 613 s t 3.430.2.7 Hospit a .3.541137 l .8 2022-04-21 2022-04-21 Prep for Oppermann, 1.2.840.1 [id number] 21 [id number] Methodi 00:00:00 00:00:00 Surgery Jose E. 93809.1.1 940 s t 3.430.2.7 Hospit a .3.994789 l .8 2022-04-21 2022-04-21 Orders Oppermann, 1.2.840.1 [id number] 734 [id number] Methodi 00:00:00 00:00:00 Only Jose E. 95906.1.1 613 s t 3.430.2.7 Hospit a .3.542163 l .8 2022-04-05 2022-04-05 Outpatient R ZAYRA, [facility] [id number] Univers 15:00:00 15:00:00 CARSON adam [facility] 2022-03-21 2022-03-21 Office Oppermann, 1.2.840.1 [id number] 058 [id number] Methodi 11:30:00 12:00:24 Visit Jose E. 82858.1.1 407 s t 3.430.2.7 Hospit a .3.080773 l .8 2022-03-21 2022-03-21 [facility] 1.2.840.1 [id number] 678 [id number] Methodi 11:30:00 12:00:24 Visit Jose Keller 41355.1.1 407 s t 3.430.2.7 Hospit a .3.589260 l .8 2022-03-21 2022-03-21 Travel 1.2.840.1 1.2.670.925 2302 200970 Methodi 00:00:00 00:00:[address] 3.430.2.7 0.2.7.3.698 Ho spita .3.002969 084.8 l .8 2022-03-21 2022-03-21 Travel 1.2.840.1 1.2.901.455 3312 [id number] Methodi 00:00:00 00:00:[address] 3.430.2.7 0.2.7.3.698 Ho spita .3.215572 084.8 l .8 2022-03-15 2022-03-15 Outpatient Estevan IVERSON [facility] [id number] Univers 10:00:00 10:00:00 CARSON adam [facility] 2022-03-14 2022-03-14 [facility]TEL[facility] [id number] Co mmon 00:00:00 00:00:00 [facility] 2022-03-06 2022-03-06 [facility], 1.2.840.1 [id number] 21 [id number] Methodi 05:46:00 12:05:00 Encounter Jose Keller 62565.1.[address] 3.430.2.7 Hospit a .3.477604 l .8 2022-03-06 2022-03-06 [facility], 1.2.840.1 [id number] 21 [id number] Methodi 05:46:00 12:05:00 Encounter Jose LuevanoShaji 45546.1.[address] 3.430.2.7 Hospit a .3.098120 l .8 2022-03-06 2022-03-06 Anesthesia Jory Santoro 1.2.840. 1 [id number] Methodi 07:44:00 09:46:00 Event Corrina Cavanaugh 55446.1.[address] 3.430.2.7 Hospit a .3.964478 l .8 2022-03-06 2022-03-06 Anesthesia Jory Santoro 1.2.840. 1 [id number] Methodi 07:44:00 09:46:00 Event Corrina Cavanaugh 49167.1.[address] 3.430.2.7 Hospit a .3.050587 l .8 2022-03-06 2022-03-06 Surgery Oppermann, 1.2.840.1 [id number] 821 [id number] Methodi 07:45:00 09:05:00 Jose E. 01315.1.1 269 s t 3.430.2.7 Hospit a .3.592919 l .8 2022-03-06 2022-03-06 Surgery Oppermann, 1.2.840.1 [id number] 287 [id number] Methodi 07:45:00 09:05:00 Jose E. 57938.1.1 269 s t 3.430.2.7 Hospit a .3.514177 l .8 2022-03-01 2022-03-01 Pre-Admiss Oppermann, 1.2.840.1 [id number] Methodi 13:00:00 14:00:00 ion Jose E. 57001.1.1 998 s t Testing 3.430.2.7 Hospit a .3.095797 l .8 2022-03-01 2022-03-01 Pre-Admiss Oppermann, 1.2.840.1 [id number] Methodi 13:00:00 14:00:00 ion Jose E. 88235.1.1 998 s t Testing 3.430.2.7 Hospit a .3.553461 l .8 2022-03-01 2022-03-01 Travel 1.2.840.1 1.2.092.541 3732 147500 Methodi 00:00:00 00:00:[address] 3.430.2.7 0.2.7.3.698 Ho spita .3.292714 084.8 l .8 2022-03-01 2022-03-01 Travel 1.2.840.1 1.2.259.144 7382 154288 Methodi 00:00:00 00:00:[address] 3.430.2.7 0.2.7.3.698 Ho spita .3.337870 084.8 l .8 2022-02-27 2022-02-[address] [facility] [facility] [id number] Common 00:00:00 00:00:00 MCR Spirit WELLNESS - CHI VISIT [facility] 2022-02-27 2022-02-[address] [facility] [id number] Co mmon 00:00:00 00:00:00 VISIT Spirit ESTAB PT - CHI LEVEL 4 [facility] 2022-02-27 2022-02-27 [facility]TEL[facility] [id number] Co mmon 00:00:00 00:00:00 Spirit - CHI [facility] 2022-02-07 2022-02-07 Orders Doctor ROSELIA 1.2.840.114 [id number] Univers 00:00:00 00:00:00 Only Unassigned, CINDY 350.1.13.10 ity of [place] [facility] 4.2.7.2.686 Negrito as [id number] [place] [address] Branch 2022-02-02 2022-02-02 (TEL) [facility] [id number] Co mmon 00:00:00 00:00:00 Spirit - CHI [facility] 2022-01-31 2022-01-31 Travel 1.2.840.1 1.2.673.452 7011 [id number] Methodi 00:00:00 00:00:[address] 3.430.2.7 0.2.7.3.698 Ho spita .3.207114 084.8 l .8 2022-01-31 2022-01-31 Travel 1.2.840.1 1.2.399.185 7849 529044 Methodi 00:00:00 00:00:[address] 3.430.2.7 0.2.7.3.698 Ho spita .3.567070 084.8 l .8 2022-01-27 2022-01-27 (TEL) STLMLC STLMLC [id number] Co mmon 00:00:00 00:00:00 [facility] 2021-12-30 2021-12-30 (TEL) STLMLC STLMLC [id number] Co mmon 00:00:00 00:00:00 [facility] 2021-12-19 2021-12-19 (TEL) STLMLC STLMLC [id number] Co mmon 00:00:00 00:00:00 [facility] 2021-12-13 2021-12-13 (TEL) STLMLC STLMLC [id number] Co mmon 00:00:00 00:00:00 [facility] 2021-12-12 2021-12-12 Pre-Admiss Eugenio, 1.2.840.1 [id number] Methodi 15:00:00 16:00:00 ion Jose E. 63924.1.1 317 s t Testing 3.430.2.7 Hospit a .3.892864 l .8 2021-12-12 2021-12-12 Pre-Admiss Oppermann, 1.2.840.1 [id number] Methodi 15:00:00 16:00:00 ion Jose E. 75699.1.1 317 s t Testing 3.430.2.7 Hospit a .3.604792 l .8 2021-12-12 2021-12-12 Travel 1.2.840.1 1.2.494.060 2956 330042 Methodi 00:00:00 00:00:[address] 3.430.2.7 0.2.7.3.698 Ho spita .3.612336 084.8 l .8 2021-12-12 2021-12-12 Travel 1.2.840.1 1.2.759.042 3107 842128 Methodi 00:00:00 00:00:[address] 3.430.2.7 0.2.7.3.698 Ho spita .3.368609 084.8 l .8 2021-12-08 2021-12-08 (TEL) STLMLC STLMLC [id number] Co mmon 00:00:00 00:00:00 [facility] 2021-12-01 2021-12-01 (TEL) STLMLC STLMLC [id number] Co mmon 00:00:00 00:00:00 [facility] 2021-11-30 2021-11-30 (TEL) STLMLC STLMLC [id number] Co mmon 00:00:00 00:00:00 [facility] 2021-11-25 2021-11-25 (TEL) STLMLC STLMLC [id number] Co mmon 00:00:00 00:00:00 [facility] 2021-11-21 2021-11-21 (TEL) STLMLC STLMLC [id number] Co mmon 00:00:00 00:00:00 [facility] 2021-11-18 2021-11-18 (TEL) STLMLC STLMLC [id number] Co mmon 00:00:00 00:00:00 [facility] 2021-11-15 2021-11-15 Office Eugenio, 1.2.840.1 [id number] Methodi 13:00:00 14:01:57 Visit Jose Keller 18219.1.1 465 s t 3.430.2.7 Hospit a .3.699211 l .8 2021-11-15 2021-11-15 Office Oppermann, 1.2.840.1 [id number] 586 [id number] Methodi 13:00:00 14:01:57 Visit Jose Keller 15656.1.1 465 s t 3.430.2.7 Hospit a .3.124935 l .8 2021-11-15 2021-11-15 Prep for Allen, 1.2.840.1 [id number] 01683 27847 Methodi 00:00:00 00:00:00 Surgery Funmi P 01012.1.[address] 3.430.2.7 Hospit a .3.982370 l .8 2021-11-15 2021-11-15 Travel 1.2.840.1 1.2.722.066 5759 007716 Methodi 00:00:00 00:00:[address] 3.430.2.7 0.2.7.3.698 Ho spita .3.604612 084.8 l .8 2021-11-15 2021-11-15 Prep for Allen, 1.2.840.1 [id number] 87858 74175 Methodi 00:00:00 00:00:00 Surgery Funmi P [address]3717.1.[address] 3.430.2.7 Hospit a .3.942471 l .8 2021-11-15 2021-11-15 Travel 1.2.840.1 1.2.266.792 7964 349899 Methodi 00:00:00 00:00:[address] 3.430.2.7 0.2.7.3.698 Ho spita .3.490218 084.8 l .8 2021-11-15 2021-11-15 [facility] [id number] Co mmon 00:00:00 00:00:00 [facility] 2021-11-14 2021-11-14 (TEL) STLC STLMLC [id number] Co mmon 00:00:00 00:00:00 [facility] 2021-11-04 2021-11-04 (TEL) STLMLC STLMLC [id number] Co mmon 00:00:00 00:00:00 [facility] 2021-10-20 2021-10-20 Telephone Stephane, 1.2.840.1 [id number] 2099 [id number] Methodi 00:00:00 00:00:[address] 3.430.2.7 Hospit a .3.530440 l .8 2021-10-20 2021-10-20 Telephone Stephane, 1.2.840.1 [id number] 2099 [id number] Methodi 00:00:00 00:00:[address] 3.430.2.7 Hospit a .3.088582 l .8 2021-10-05 2021-10-05 Documentat Mas, 1.2.840.1 [id number] 21 [id number] Methodi 00:00:00 00:00:00 ion Angel 44183.1.[address] 3.430.2.7 Hospit a .3.375030 l .8 2021-10-05 2021-10-05 Documentat Mas, 1.2.840.1 [id number] Methodi 00:00:00 00:00:00 ion Angel 80624.1.[address] 3.430.2.7 Hospit a .3.161778 l .8 2021-09-22 2021-09-22 Travel 1.2.840.1 1.2.584.362 0392 739863 Methodi 00:00:00 00:00:[address] 3.430.2.7 0.2.7.3.698 Ho spita .3.625029 084.8 l .8 2021-09-22 2021-09-22 Travel 1.2.840.1 1.2.516.539 3943 617956 Methodi 00:00:00 00:00:[address] 3.430.2.7 0.2.7.3.698 spita .3.860901 084.8 l .8 2021-08-23 2021-08-23 Ambulatory nullFlavo MNA [id number] 05286 Memoria 14:15:00 14:15:00 Pre-Reg r Neurology 06 l Estelle Winona 2021-08-23 2021-08-23 Ambulatory nullFlavo MNA [id number] Memoria 14:15:00 14:15:00 Pre-Reg r Neurology 06 l Estelle Winona 2021-08-23 2021-08-23 Outpatient MHIE ELIANA [id number] Memoria 08:15:00 08:15:00 06 josy Saucedo 2021-08-23 2021-08-23 [id number] 08:15:00 08:15:00 Farhan Herminia Don 2021-07-12 2021-07-12 Ambulatory nullFlavo MNA [id number] Memoria 14:15:00 14:15:00 Pre-Reg r Neurology 05 l Estelle Winona 2021-07-12 2021-07-12 Ambulatory nullFlavo MNA [id number] Memoria 14:15:00 14:15:00 Pre-Reg r Neurology 05 l Estelle Winona 2021-07-12 2021-07-12 [id number] 08:15:00 08:15:00 Farhan Mela Don 2021-06-14 2021-06-14 Telephone Courtney 1.2.840.1 [id number] Methodi 00:00:00 00:00:[address] 3.430.2.7 Hospit a .3.320077 l .8 2021-06-01 2021-06-01 Outpatient MHIE ELIANA [id number] 465 Memoria 09:00:00 09:00:00 05 josy Saucedo 2021-05-19 2021-05-19 Ambulatory nullFlavo MNA [id number] Memoria 14:15:00 14:15:00 Pre-Reg r Neurology 04 l Estelle Saucedo 2021-05-19 2021-05-19 Ambulatory nullFlavo MNA [id number] Memoria 14:15:00 14:15:00 Pre-Reg r Neurology 04 l Estelle Saucedo 2021-05-19 2021-05-19 Outpatient CORWIN Michel KADESCHER [id number] 08:15:00 08:15:00 Farhan 04 Arian 2021-05-10 2021-05-10 Outpatient MHIE MHIE [id number] Memoria 15:45:00 15:45:00 04 josy Saucedo 2021-03-31 2021-03-31 Ambulatory nullFlavo MNA [id number] Memoria 13:15:00 13:15:00 Pre-Reg r Neurology 03 josy Saucedo 2021-03-31 2021-03-31 Ambulatory nullFlavo MNA [id number] Memoria 13:15:00 13:15:00 Pre-Reg r Neurology 03 josy Saucedo 2021-03-31 2021-03-31 Outpatient MHIE MHIE [id number] Memoria 08:15:00 08:15:00 03 josy Saucedo 2021-03-31 2021-03-31 [id number] 08:15:00 08:15:00 Farhan Mary Anne Don 2021-02-23 2021-02-24 Outpatient nullFlavo MNA [id number] Memoria 20:00:00 04:59:59 r Neurology 02 josy Saucedo 2021-02-23 2021-02-24 Outpatient nullFlavo MNA [id number] Memoria 20:00:00 04:59:59 r Neurology 02 josy Saucedo 2021-02-23 2021-02-23 Outpatient [facility] [id number] 15:00:00 23:59:59 Farhan Laurie Don 2021-02-23 2021-02-23 Outpatient MHIE MHIE [id number] Memoria 15:00:00 15:00:00 02 josy Saucedo 2020-10-14 2020-10-14 Surgery [facility] 1.2.840.114 [id number] Univers 08:34:00 09:10:00 Fausto Garza 350.1.13.10 i [place] [id number] [facility] 020 [place] 2020-10-14 2020-10-14 [place] 1.2.840.114 [id number] 08:34:00 09:10:00 [place] 350.1.13.10 [place] 4.2.7.2.686 Surgical [id number] [place] [address] 2020-10-12 2020-10-12 [employer] Jyoti, [facility] Lab Main [facility] 1.2.8 40.114 [id number] [facility] 11:40:06 11:55:06 Visit Fausto Moraes 350.1.1 3.10 ity [place] [id number] Vt dical [address] 2020-10-12 2020-10-12 [employer] Jyoti, [facility] 1.2.840.114 [id number] 11:40:06 11:55:06 Visit Lab Main [place] 350.1.13.10 [place] 4.2.7.2.686 Professio [id number] [address] 2020-10-12 2020-10-12 Laboratory Only, [facility] Test [facility] 1.2.840. 114 [id number] [facility] 11:34:36 11:49:36 Only Fausto Moraes 350.1.1 3.10 ity of [place] 4[place].7.2.[place] [phone] [address] 2020-10-12 2020-10-12 Laboratory Only, [facility] 1.2.840.114 [id number] 11:34:36 11:49:36 Only Test [place] 350.1.13.10 [place] 4.2.7.2.686 [place] [id number] [facility] 2020-10-12 2020-10-12 Outpatient R ALEISHA, [facility] [id number] [facility] 10:45:00 10:45:00 FAUSTO adam of [facility] 2020-10-12 2020-10-12 Orders Doctor ROSELIA 1.2.840.114 [id number] Univers 00:00:00 00:00:00 Only Unassigned, CINDY 350.1.13.10 ity of [place] [facility] 4.2.7.2.686 [place] [phone] [address] 2020-10-12 2020-10-12 Orders Doctor ROSELIA 1.2.840.114 [id number] 00:00:00 00:00:00 Only Unassigned, CINDY 350.1.13.10 [place] [facility] 4.2.7.2.[id number] [facility] 2020-05-13 2020-05-14 Outpatient SUSAN WHITE [facility] [id number] [place] 00:00:00 00:00:00 361 Method i 2020-05-11 2020-05-11 Outpatient [facility] [id number] [place] 00:00:00 00:00:00 IMRAN 611 Method i 2020-04-01 2020-04-01 [facility] 1.2.840.114 [id number] [facility] 06:36:00 10:10:00 Encounter Fausto Garza 350.1.13.10 [place] [id number] [facility] [address] [place] [address] 2020-04-01 2020-04-01 [facility] 1.2.840.114 [id number] 06:36:00 10:10:00 Encounter Fausto Garza 350.1.13.10 [place] 4.2.7.2.686 Surgical [id number] [place] [address] 2020-04-01 2020-04-01 [facility]11 4 [id number] [facility] 08:01:00 08:33:00 [facility] 350.1.13.10 [place] [id number] [facility] 020 [place] 2020-04-01 2020-04-01 Anesthesia Demetrio Christensen [facility] 1.2.840.11 4 [id number] 08:01:00 08:33:00 [facility] 350.1.13.10 [place] 4.2.7.2.686 Surgical [id number] [place] 020 2020-03-31 2020-03-31 Outpatient R ALEISHA [facility] [id number] Univers 09:30:00 09:30:00 FAUSTO itagus [facility] 2020-03-30 2020-03-30 Outpatient R [facility] [id number] Univers 12:45:00 12:45:00 ity [facility] 2020-03-30 2020-03-30 Laboratory Only, Adc Test [facility] 1.2.840. 114 [id number] Univers 11:17:56 11:32:56 Only Fausto Moraes 350.1.1 3.10 it[place] [id number] [place] 353 [place] 2020-03-30 2020-03-30 Orders Doctor ROSELIA 1.2.840.114 [id number] Univers 00:00:00 00:00:00 Only Unassigned, CINDY 350.1.13.[address] [facility] 4.2.7.2.686 [place] [id number] [place] [address] [place] 2020-03-25 2020-03-25 [facility] 2100 [id number] [place] 00:00:00 00:00:00 IMRAN [address] 2020-03-23 2020-03-23 [employer] Jyoti, Adc Lab Main [facility] 1.2.8 40.114 [id number] Univers 15:51:10 16:06:10 Visit Fausto Moraes 350.1.1 3.10 ity of [place] [facility] [id number] Vt dical [address] 2020-03-23 2020-03-23 Outpatient R ALEISHA [facility] [id number] Univers 16:00:00 16:00:00 FAUSTO adam [facility] 2020-03-23 2020-03-23 Outpatient [facility] 2100 [id number] [place] 00:00:00 00:00:00 IMRAN [address] 2020-03-23 2020-03-23 Outpatient [facility] 139 [id number] [place] 00:00:00 00:00:00 KI, [address] Results Test Description Test Time Test Comments Results Result Comments Source GLUCOSE BEDSIDE 2022-07-07 15:54:00 Test Item Value Reference Range Interpretation Comme nts GLUCOSE BEDSIDE (test code = 122 MG/DL 70-110 H Performed by certified 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[facility] GLUCOSE [id number] 12:13:00 Test Item Value Reference Range Interpretation Comments GLUCOSE BEDSIDE (test 156 MG/DL 70-110 H Perfor med by certified code = GLUBED) 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[facility] GLUCOSE [id number] 10:42:00 Test Item Value Reference Range Interpretation Comments GLUCOSE BEDSIDE (test 181 MG/DL 70-110 H Perfor med by certified code = GLUBED) 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[facility] GLUCOSE [id number] 20:05:00 Test Item Value Reference Range Interpretation Comments GLUCOSE BEDSIDE (test 90 MG/DL 70-110 N Perfor med by certified code = GLUBED) 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[facility] GLUCOSE [id number] 15:46:00 Test Item Value Reference Range Interpretation Comments GLUCOSE BEDSIDE (test 212 MG/DL 70-110 H Perfor med by certified code = GLUBED) 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[facility] GLUCOSE [id number] 12:44:00 Test Item Value Reference Range Interpretation Comments GLUCOSE BEDSIDE (test 120 MG/DL 70-110 H Perfor med by certified code = GLUBED) 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[facility] BASIC METABOLIC [id number] 08:34:00 Test Item Value Reference Range Interpretation Comments SODIUM (test code = 140 mEq/L 134-147 N NA) POTASSIUM (test code 4.4 mEq/L 3.4-5.0 N = K) CHLORIDE (test code 101 mEq/L 100-108 N = CL) CARBON DIOXIDE (test 30 mEq/l 21-33 N code = CO2) ANION GAP (test code 14 0-20 N = GAP) GLUCOSE (test code = 167 mg/dL 70-110 H GLU) BLOOD UREA NITROGEN 31 mg/dL 7-18 H (test code = BUN) GLOMERULAR 10.5 80-90 L The Glomerular FILTRATION RATE Filtration R ate is a (test code = GFR) calculated parameterbased on serum Creatinine, pat ient age and sex. GFR va luesless than 60 mL/min/ 1.73 square meters a re indicative ofCh ronic Kidney Disease. Values less than 15 mL/min/1.73squa re meters indicate Kidney failure. The calculation forGFR is based on the CKD-EPI (2020) calculat ion. This formulais race indifferent and is the recommended for bhumika for GFRby the Natio nal Kidney Foundati on for Adults.The GFR will not calculate if th e sex is unknown or if thepatient's ag e is <18 years. CREATININE (test 4.4 mg/dL 0.6-1.3 H code = CREAT) CALCIUM (test code = 9.5 mg/dL 8.0-10.5 N CA) [id number] 08:34:00 Test Item Value Reference Range Interpretation Comments PHOSPHOROUS (test code = PHOS) 2.3 MG/DL 2.5-4.9 L [id number] 08:34:00 Test Item Value Reference Range Interpretation Comments MAGNESIUM (test code = MAG) 2.18 mg/dL 1.80-2.40 N [id number] 08:29:00 Test Item Value Reference Range Interpretation Comments VANCOMYCIN (test code = VANCO) 20.2 mcg/mL CBC W/AUTO [id number] 08:27:00 Test Item Value Reference Range Interpretation Comments WHITE BLOOD CELL (test code = 7.7 x10 3/uL 4.5-11.0 N WBC) RED BLOOD CELL (test code = 2.92 x10 6/uL 3.54-5.02 L RBC) HEMOGLOBIN (test code = HGB) 8.8 g/dL 11.0-15.0 L HEMATOCRIT (test code = HCT) 29.4 % 33.0-45.0 L MEAN CELL VOLUME (test code = 100.7 fL 81.0-99.0 H MCV) MEAN CELL HGB (test code = MCH) 30.1 pg 27.0-33.0 N MEAN CELL HGB CONCETRATION 29.9 g/dL 33.0-37.0 L (test code = MCHC) RED CELL DISTRIBUTION WIDTH CV 15.1 % 11.5-14.5 H (test code = RDW) RED CELL DISTRIBUTION WIDTH SD 54.8 fL 37.0-54.0 H (test code = RDW-SD) PLATELET COUNT (test code = 160 x10 3/uL 150-400 N PLT) MEAN PLATELET VOLUME (test code 9.5 fL 7.0-9.0 H = MPV) NEUTROPHIL % (test code = NT%) 79.5 % 56.0-77.0 H IMMATURE GRANULOCYTE % (test 0.5 % 0.0-2.0 N code = IG%) LYMPHOCYTE % (test code = LY%) 7.7 % 14.0-32.0 L MONOCYTE % (test code = MO%) 9.5 % 4.8-9.0 H EOSINOPHIL % (test code = EO%) 2.7 % 0.3-3.7 N BASOPHIL % (test code = BA%) 0.1 % 0.0-2.0 N NUCLEATED RBC % (test code = 0.0 % 0-0 N NRBC%) NEUTROPHIL # (test code = NT#) 6.08 x10 3/uL 2.0-7.6 N IMMATURE GRANULOCYTE # (test 0.04 x10 3/uL 0.00-0.03 H code = IG#) LYMPHOCYTE # (test code = LY#) 0.59 x10 3/uL 1.0-3.8 L MONOCYTE # (test code = MO#) 0.73 x10 3/uL 0.1-0.8 N EOSINOPHIL # (test code = EO#) 0.21 x10 3/uL 0.0-0.2 H BASOPHIL # (test code = BA#) 0.01 x10 3/uL 0.0-0.2 N NUCLEATED RBC # (test code = 0.00 x10 3/uL 0.0-0.1 N NRBC#) MANUAL DIFF REQUIRED (test code NO = MDIFF) CALCIUM [id number] 08:20:00 Test Item Value Reference Range Interpretation Comments CALCIUM IONIZED (test code = AMILCAR) 1.21 MMOL/L 1.09-1.30 N GLUCOSE [id number] 05:39:00 Test Item Value Reference Range Interpretation Comments GLUCOSE BEDSIDE (test 175 MG/DL 70-110 H Perfor med by certified code = GLUBED) 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[facility] GLUCOSE [id number] 20:49:00 Test Item Value Reference Range Interpretation Comments GLUCOSE BEDSIDE (test 167 MG/DL 70-110 H Perfor med by certified code = GLUBED) 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[facility] GLUCOSE [id number] 17:03:00 Test Item Value Reference Range Interpretation Comments GLUCOSE BEDSIDE (test 127 MG/DL 70-110 H Perfor med by certified code = GLUBED) 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[facility] GLUCOSE [id number] 11:54:00 Test Item Value Reference Range Interpretation Comments GLUCOSE BEDSIDE (test 177 MG/DL 70-110 H Perfor med by certified code = GLUBED) 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[facility] GLUCOSE [id number] 06:39:00 Test Item Value Reference Range Interpretation Comments GLUCOSE BEDSIDE (test 153 MG/DL 70-110 H Perfor med by certified code = GLUBED) 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[facility] GLUCOSE [id number] 19:51:00 Test Item Value Reference Range Interpretation Comments GLUCOSE BEDSIDE (test 165 MG/DL 70-110 H Perfor med by certified code = GLUBED) 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[facility] GLUCOSE [id number] 17:15:00 Test Item Value Reference Range Interpretation Comments GLUCOSE BEDSIDE (test 188 MG/DL 70-110 H Perfor med by certified code = GLUBED) 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[facility] GLUCOSE [id number] 12:16:00 Test Item Value Reference Range Interpretation Comments GLUCOSE BEDSIDE (test 132 MG/DL 70-110 H Perfor med by certified code = GLUBED) 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[facility] GLUCOSE [id number] 10:20:00 Test Item Value Reference Range Interpretation Comments GLUCOSE BEDSIDE (test 131 MG/DL 70-110 H Perfor med by certified code = GLUBED) 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[facility] CBC W/AUTO [id number] 08:33:00 Test Item Value Reference Range Interpretation Comments WHITE BLOOD CELL (test code = 7.8 x10 3/uL 4.5-11.0 N WBC) RED BLOOD CELL (test code = 3.00 x10 6/uL 3.54-5.02 L RBC) HEMOGLOBIN (test code = HGB) 9.0 g/dL 11.0-15.0 L HEMATOCRIT (test code = HCT) 30.4 % 33.0-45.0 L MEAN CELL VOLUME (test code = 101.3 fL 81.0-99.0 H MCV) MEAN CELL HGB (test code = MCH) 30.0 pg 27.0-33.0 N MEAN CELL HGB CONCETRATION 29.6 g/dL 33.0-37.0 L (test code = MCHC) RED CELL DISTRIBUTION WIDTH CV 15.0 % 11.5-14.5 H (test code = RDW) RED CELL DISTRIBUTION WIDTH SD 55.3 fL 37.0-54.0 H (test code = RDW-SD) PLATELET COUNT (test code = 190 x10 3/uL 150-400 N PLT) MEAN PLATELET VOLUME (test code 9.5 fL 7.0-9.0 H = MPV) NEUTROPHIL % (test code = NT%) 75.9 % 56.0-77.0 N IMMATURE GRANULOCYTE % (test 0.4 % 0.0-2.0 N code = IG%) LYMPHOCYTE % (test code = LY%) 9.6 % 14.0-32.0 L MONOCYTE % (test code = MO%) 9.8 % 4.8-9.0 H EOSINOPHIL % (test code = EO%) 4.2 % 0.3-3.7 H BASOPHIL % (test code = BA%) 0.1 % 0.0-2.0 N NUCLEATED RBC % (test code = 0.0 % 0-0 N NRBC%) NEUTROPHIL # (test code = NT#) 5.91 x10 3/uL 2.0-7.6 N IMMATURE GRANULOCYTE # (test 0.03 x10 3/uL 0.00-0.03 N code = IG#) LYMPHOCYTE # (test code = LY#) 0.75 x10 3/uL 1.0-3.8 L MONOCYTE # (test code = MO#) 0.76 x10 3/uL 0.1-0.8 N EOSINOPHIL # (test code = EO#) 0.33 x10 3/uL 0.0-0.2 H BASOPHIL # (test code = BA#) 0.01 x10 3/uL 0.0-0.2 N NUCLEATED RBC # (test code = 0.00 x10 3/uL 0.0-0.1 N NRBC#) MANUAL DIFF REQUIRED (test code NO = MDIFF) BASIC METABOLIC [id number] 07:37:00 Test Item Value Reference Range Interpretation Comments SODIUM (test code = 140 mEq/L 134-147 N NA) POTASSIUM (test code 4.2 mEq/L 3.4-5.0 N = K) CHLORIDE (test code 100 mEq/L 100-108 N = CL) CARBON DIOXIDE (test 28 mEq/l 21-33 N code = CO2) ANION GAP (test code 17 0-20 N = GAP) GLUCOSE (test code = 179 mg/dL 70-110 H GLU) BLOOD UREA NITROGEN 35 mg/dL 7-18 H (test code = BUN) GLOMERULAR 8.8 80-90 L The Glomerular FILTRATION RATE Filtration R ate is a (test code = GFR) calculated parameterbased on serum Creatinine, pat ient age and sex. GFR va luesless than 60 mL/min/ 1.73 square meters a re indicative ofCh ronic Kidney Disease. Values less than 15 mL/min/1.73squa re meters indicate Kidney failure. The calculation for GFR is based on the CK D-EPI (2020) calculat ion. This formulais race indifferent and is the recommended for bhumika for GFRby the Natio nal Kidney Foundati on for Adults.The GFR will not calculate if th e sex is unknown or if thepatient's ag e is <18 years. CREATININE (test 5.1 mg/dL 0.6-1.3 H code = CREAT) CALCIUM (test code = 10.1 mg/dL 8.0-10.5 N CA) [id number] 07:37:00 Test Item Value Reference Range Interpretation Comments PHOSPHOROUS (test code = PHOS) 3.4 MG/DL 2.5-4.9 N [id number] 07:37:00 Test Item Value Reference Range Interpretation Comments MAGNESIUM (test code = MAG) 2.31 mg/dL 1.80-2.40 [id number] 06:49:00 Test Item Value Reference Range Interpretation Comments VANCOMYCIN (test code = VANCO) 19.9 mcg/mL GLUCOSE [id number] 06:17:00 Test Item Value Reference Range Interpretation Comments GLUCOSE BEDSIDE (test 173 MG/DL 70-110 H Perfor med by certified code = GLUBED) 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[facility] - NM BONE 3 [id number] 00:00:00 [facility] 1955 Sex: F FAX: Delmy Howell [phone] [place]: St: ADM FAX: Kasey Ochoa MD [phone] FAX: Jim Mazariegos MD [phone] FAX: Adonis Canchola MD [phone] Name: JENN MOTTA [facility] : 1955 Age/S: 67/F [address] [place] [address] Unit #: [id number] Loc: G.[address] [place] [address] Phys: Kasey Mendez MD Acct: [id number] Dis Date: Status: ADM IN PHONE #: [phone] Exam Date: 022 1506 FAX #: [phone] Reason: left foot ulcers EXAMS: CPT CODE: [id number] NM BONE 3 PHASE [id number] PROCEDURE INFORMATION: Exam: NM Bone and/or Joint, 3 Phase Exam date and time: 07/04/2022 3:05 PM Age: 67 years old Clinical indication: Other: Left foot ulcers TECHNIQUE: Imaging protocol: Three phase bone scan of the feet is performed using 25 mCi of technetium 99m-MDP, which is administered intravenously. Radiopharmaceutical: 25 mCi Tc-99m HDP (Oxidronate), IV. Other technique: IV Site: Righthand; IV Site: Angiographic imaging was performed in the frontal plane immediately after radiotracer administration at 5 seconds/frame for 60 seconds. IV Site: Small field of view static imaging of thefeet were then performed for blood pool imaging in the anterior and posterior projections. IV Site: 2 hour delayed small field of view static imaging of the feet were then performed for delayed imagingin the multiple projections. COMPARISON: No relevant prior studies available. FINDINGS: Angiographic images: The radionuclide angiographic images show no abnormal areas of uptake. Blood pool images: The blood pool images show no abnormal areas of uptake. Delayed imaging: The delayed images show no abnormal areas of uptake. Bones/joints: The flow study demonstrates slight increased flow to the left foot compared to the right. The only plain radiographs of the foot of the left foot performed 2021. These demonstrate Kathya deformity and a plantar calcaneal spur. No bone destruction or periosteal reaction is seen in the area of scintigraphic abnormality in the posterior calcaneus. Soft t issues: The blood pool images demonstrates no area of soft tissue localization in either foot. The delayed static images were taken 2 hours post injection with significant soft tissue background. Increased uptake is seen in the inferior and posterior calcaneus and likely represents degenerative change. IMPRESSION: 1. No evidence of cellulitis or osteomyelitis. 2. Active osseous abnormality in the inferior and posterior calcaneus bilaterally likely representing degenerative change as PAGE 1 Signed Report (CONTINUED) FAX: Delmy Howell [phone] [place]: St: [facility] FAX: Kasey Ochoa Nataly [phone] FAX: Jim Mazariegos MD [phone] FAX: Adonis Canchola MD [phone] Name: JENN MOTTA [facility] : 1955 Age/S: 67/F [address] [place] [address] Blvd Unit #: [id number] Loc: G.4[address] [place] [address] Phys: Kasey Mendez MD Acct: [id number] Dis Date: Status: ADM IN PHONE #: [phone] Date: 07/04/2022 1506 FAX #: [phone] Reason: left foot ulcers EXAMS: CPT CODE: [id number] NM BONE 3 PHASE 11665 (Continued) noted on the left foot plain radiographs. at 0 Reported and signed by: Gus Moura M.D. CC: Delmy Ashton MD; Kasey Mendez MD; Jim Dhillon MD; Adonis Gaytan MD Technologist: NITA Daniel (N)(CT); ... Trnscrd Date/Time/By: 07/04/2022 (1849) : By: [email or web address] [facility] D/T: S: 07/04/2022 (1849) PAGE 2 Signed ReportGLUCOSE [id number] 20:34:00 Test Item Value Reference Range Interpretation Comments GLUCOSE BEDSIDE (test 167 MG/DL 70-110 H Perfor med by certified code = GLUBED) 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[facility] GLUCOSE [id number] 15:58:00 Test Item Value Reference Range Interpretation Comments GLUCOSE BEDSIDE (test 131 MG/DL 70-110 H Perfor med by certified code = GLUBED) 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[facility] GLUCOSE [id number] 11:38:00 Test Item Value Reference Range Interpretation Comments GLUCOSE BEDSIDE (test 202 MG/DL 70-110 H Perfor med by certified code = GLUBED) 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[facility] BASIC METABOLIC [id number] 08:17:00 Test Item Value Reference Range Interpretation Comments SODIUM (test code = 142 mEq/L 134-147 N NA) POTASSIUM (test code 4.0 mEq/L 3.4-5.0 N = K) CHLORIDE (test code 103 mEq/L 100-108 N = CL) CARBON DIOXIDE (test 26 mEq/l 21-33 N code = CO2) ANION GAP (test code 17 0-20 N = GAP) GLUCOSE (test code = 177 mg/dL 70-110 H GLU) BLOOD UREA NITROGEN 24 mg/dL 7-18 H (test code = BUN) GLOMERULAR 10.2 80-90 L The Glomerular FILTRATION RATE Filtration R ate is a (test code = GFR) calculated parameterbased on serum Creatinine, pat ient age and sex. GFR va luesless than 60 mL/min/ 1.73 square meters a re indicative ofCh ronic Kidney Disease. Values less than 15 mL/min/1.73squa re meters indicate Kidney failure. The calculation forGFR is based on the CKD-EPI (2020) calculat ion. This formulais race indifferent and is the recommended for bhumika for GFRby the Natio nal Kidney Foundati on for Adults.The GFR will not calculate if th e sex is unknown or if thepatient's ag e is <18 years. CREATININE (test 4.5 mg/dL 0.6-1.3 H code = CREAT) CALCIUM (test code = 9.2 mg/dL 8.0-10.5 N CA) CBC W/AUTO [id number] 07:54:00 Test Item Value Reference Range Interpretation Comments WHITE BLOOD CELL (test code = 8.8 x10 3/uL 4.5-11.0 N WBC) RED BLOOD CELL (test code = 2.88 x10 6/uL 3.54-5.02 L RBC) HEMOGLOBIN (test code = HGB) 8.7 g/dL 11.0-15.0 L HEMATOCRIT (test code = HCT) 29.1 % 33.0-45.0 L MEAN CELL VOLUME (test code = 101.0 fL 81.0-99.0 H MCV) MEAN CELL HGB (test code = MCH) 30.2 pg 27.0-33.0 N MEAN CELL HGB CONCETRATION 29.9 g/dL 33.0-37.0 L (test code = MCHC) RED CELL DISTRIBUTION WIDTH CV 14.9 % 11.5-14.5 H (test code = RDW) RED CELL DISTRIBUTION WIDTH SD 55.0 fL 37.0-54.0 H (test code = RDW-SD) PLATELET COUNT (test code = 203 x10 3/uL 150-400 N PLT) MEAN PLATELET VOLUME (test code 9.5 fL 7.0-9.0 H = MPV) NEUTROPHIL % (test code = NT%) 82.1 % 56.0-77.0 H IMMATURE GRANULOCYTE % (test 0.2 % 0.0-2.0 N code = IG%) LYMPHOCYTE % (test code = LY%) 6.2 % 14.0-32.0 L MONOCYTE % (test code = MO%) 8.5 % 4.8-9.0 N EOSINOPHIL % (test code = EO%) 2.9 % 0.3-3.7 N BASOPHIL % (test code = BA%) 0.1 % 0.0-2.0 N NUCLEATED RBC % (test code = 0.0 % 0-0 N NRBC%) NEUTROPHIL # (test code = NT#) 7.24 x10 3/uL 2.0-7.6 N IMMATURE GRANULOCYTE # (test 0.02 x10 3/uL 0.00-0.03 N code = IG#) LYMPHOCYTE # (test code = LY#) 0.55 x10 3/uL 1.0-3.8 L MONOCYTE # (test code = MO#) 0.75 x10 3/uL 0.1-0.8 N EOSINOPHIL # (test code = EO#) 0.26 x10 3/uL 0.0-0.2 H BASOPHIL # (test code = BA#) 0.01 x10 3/uL 0.0-0.2 N NUCLEATED RBC # (test code = 0.00 x10 3/uL 0.0-0.1 N NRBC#) MANUAL DIFF REQUIRED (test code NO = MDIFF) GLUCOSE [id number] 05:40:00 Test Item Value Reference Range Interpretation Comments GLUCOSE BEDSIDE (test 170 MG/DL 70-110 H Perfor med by certified code = GLUBED) 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[facility] GLUCOSE [id number] 19:15:00 Test Item Value Reference Range Interpretation Comments GLUCOSE BEDSIDE (test 154 MG/DL 70-110 H Perfor med by certified code = GLUBED) 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[facility] GLUCOSE [id number] 17:40:00 Test Item Value Reference Range Interpretation Comments GLUCOSE BEDSIDE (test 134 MG/DL 70-110 H Perfor med by certified code = GLUBED) 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[facility] GLUCOSE [id number] 11:39:00 Test Item Value Reference Range Interpretation Comments GLUCOSE BEDSIDE (test 156 MG/DL 70-110 H Perfor med by certified code = GLUBED) 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[facility] GLUCOSE [id number] 08:37:00 Test Item Value Reference Range Interpretation Comments GLUCOSE BEDSIDE (test 222 MG/DL 70-110 H Perfor med by certified code = GLUBED) 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[facility] BASIC METABOLIC [id number] 06:58:00 Test Item Value Reference Range Interpretation Comments SODIUM (test code = 141 mEq/L 134-147 N NA) POTASSIUM (test code 4.0 mEq/L 3.4-5.0 N = K) CHLORIDE (test code 102 mEq/L 100-108 N = CL) CARBON DIOXIDE (test 28 mEq/l 21-33 N code = CO2) ANION GAP (test code 15 0-20 N = GAP) GLUCOSE (test code = 162 mg/dL 70-110 H GLU) BLOOD UREA NITROGEN 17 mg/dL 7-18 (test code = BUN) GLOMERULAR 14.3 80-90 L The Glomerular FILTRATION RATE Filtration R ate is a (test code = GFR) calculated parameterbased on serum Creatinine, pat ient age and sex. GFR va luesless than 60 mL/min/ 1.73 square meters a re indicative ofCh ronic Kidney Disease. Values less than 15 mL/min/1.73squa re meters indicate Kidney failure. The calculation forGFR is based on the CKD-EPI (2020) calculat ion. This formulais race indifferent and is the recommended for bhumika for GFRby the [facility] Kidney Foundati on for Adults.The GFR will not calculate if th e sex is unknown or if thepatient's ag e is <18 years. CREATININE (test 3.4 mg/dL 0.6-1.3 H code = CREAT) CALCIUM (test code = 9.0 mg/dL 8.0-10.5 N CA) [id number] 06:58:00 Test Item Value Reference Range Interpretation Comments PHOSPHOROUS (test code = PHOS) 3.0 MG/DL 2.5-4.9 [id number] 06:58:00 Test Item Value Reference Range Interpretation Comments MAGNESIUM (test code = MAG) 1.89 mg/dL 1.80-2.40 N CALCIUM [id number] 06:58:00 Test Item Value Reference Range Interpretation Comments CALCIUM IONIZED (test code = AMILCAR) 1.11 MMOL/L 1.09-1.30 N CBC W/AUTO [id number] 06:47:00 Test Item Value Reference Range Interpretation Comments WHITE BLOOD CELL (test code = 8.6 x10 3/uL 4.5-11.0 N WBC) RED BLOOD CELL (test code = 3.00 x10 6/uL 3.54-5.02 L RBC) HEMOGLOBIN (test code = HGB) 9.0 g/dL 11.0-15.0 L HEMATOCRIT (test code = HCT) 30.9 % 33.0-45.0 L MEAN CELL VOLUME (test code = 103.0 fL 81.0-99.0 H MCV) MEAN CELL HGB (test code = MCH) 30.0 pg 27.0-33.0 N MEAN CELL HGB CONCETRATION 29.1 g/dL 33.0-37.0 L (test code = MCHC) RED CELL DISTRIBUTION WIDTH CV 15.0 % 11.5-14.5 H (test code = RDW) RED CELL DISTRIBUTION WIDTH SD 56.6 fL 37.0-54.0 H (test code = RDW-SD) PLATELET COUNT (test code = 187 x10 3/uL 150-400 N PLT) MEAN PLATELET VOLUME (test code 9.4 fL 7.0-9.0 H = MPV) NEUTROPHIL % (test code = NT%) 80.9 % 56.0-77.0 H IMMATURE GRANULOCYTE % (test 0.4 % 0.0-2.0 N code = IG%) LYMPHOCYTE % (test code = LY%) 7.5 % 14.0-32.0 L MONOCYTE % (test code = MO%) 8.4 % 4.8-9.0 N EOSINOPHIL % (test code = EO%) 2.7 % 0.3-3.7 N BASOPHIL % (test code = BA%) 0.1 % 0.0-2.0 N NUCLEATED RBC % (test code = 0.0 % 0-0 N NRBC%) NEUTROPHIL # (test code = NT#) 6.93 x10 3/uL 2.0-7.6 N IMMATURE GRANULOCYTE # (test 0.03 x10 3/uL 0.00-0.03 N code = IG#) LYMPHOCYTE # (test code = LY#) 0.64 x10 3/uL 1.0-3.8 L MONOCYTE # (test code = MO#) 0.72 x10 3/uL 0.1-0.8 N EOSINOPHIL # (test code = EO#) 0.23 x10 3/uL 0.0-0.2 H BASOPHIL # (test code = BA#) 0.01 x10 3/uL 0.0-0.2 N NUCLEATED RBC # (test code = 0.00 x10 3/uL 0.0-0.1 N NRBC#) MANUAL DIFF REQUIRED (test code NO = MDIFF) GLUCOSE [id number] 21:27:00 Test Item Value Reference Range Interpretation Comments GLUCOSE BEDSIDE (test 224 MG/DL 70-110 H Perfor med by certified code = GLUBED) 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[facility] GLUCOSE [id number] 16:50:00 Test Item Value Reference Range Interpretation Comments GLUCOSE BEDSIDE (test 174 MG/DL 70-110 H Perfor med by certified code = GLUBED) 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[facility] BASIC METABOLIC [id number] 15:03:00 Test Item Value Reference Range Interpretation Comments SODIUM (test code = 140 mEq/L 134-147 N NA) POTASSIUM (test code 4.4 mEq/L 3.4-5.0 N = K) CHLORIDE (test code 104 mEq/L 100-108 N = CL) CARBON DIOXIDE (test 26 mEq/l 21-33 N code = CO2) ANION GAP (test code 14 0-20 N = GAP) GLUCOSE (test code = 191 mg/dL 70-110 H GLU) BLOOD UREA NITROGEN 31 mg/dL 7-18 H (test code = BUN) GLOMERULAR 9.0 80-90 L The Glomerular FILTRATION RATE Filtration R ate is a (test code = GFR) calculated parameterbased on serum Creatinine, pat ient age and sex. GFR va luesless than 60 mL/min/ 1.73 square meters a re indicative ofCh ronic Kidney Disease. Values less than 15 mL/min/1.73squa re meters indicate Kidney failure. The calculation forGFR is based on the CKD-EPI (2020) calculat ion. This formulais race indifferent and is the recommended for bhumika for GFRby the [facility] for Adults.The GFR will not calculate if th e sex is unknown or if thepatient's ag e is <18 years. CREATININE (test 5.0 mg/dL 0.6-1.3 H code = CREAT) CALCIUM (test code = 9.1 mg/dL 8.0-10.5 N CA) POC ARTERIAL BLOOD [id number] 14:28:00 Test Item Value Reference Range Interpretation Comments POC ARTERIAL BLOOD GAS PH (test 7.343 7.35-7.45 L code = POCPHA) POC ARTERIAL BLOOD GAS PCO2 (test 47.7 mmHg 35.0-45 H code = [id number]) POC TCO2 ARTERIAL (test code = 27.4 POCTCO2) POC ARTERIAL BLOOD GAS PO2 (test 105.9 mmHg 80-100.0 H code = WYDHI1J) POC HCO3 ARTERIAL (test code = 25.9 MMOL/L 22.0-26.0 N [id number]) POC BASE EXCESS (test code = 0.2 MMOL/L -4.0-4.0 N POCBEA) POC O2 SATURATION (test code = 97.7 % 90-100 N POCO2S) BASIC METABOLIC [id number] 14:28:00 Test Item Value Reference Range Interpretation Comments SODIUM (test code = NA/ABG) 139 mmol/L 134-147 N POTASSIUM (test code = K/ABG) 4.3 mmol/L 3.4-5.0 N CHLORIDE (test code = CL/ABG) 102 mmol/L 100-108 N CREATININE ABG (test code = 5.3 mg/dL 0.6-1.0 H CREAABG) POC IONIZED CALCIUM (test code = 1.24 MMOL/L 1.12-1.32 N POCCA) POC GLUCOSE (test code = POCGLU) 188 MG/DL 70-110 H HEMOGLOBIN [id number] 14:28:00 Test Item Value Reference Range Interpretation Comments HEMOGLOBIN ABG (test code = 10.0 G/DL 11.0-15.0 L HGB/ABG) [id number] 14:28:00 Test Item Value Reference Range Interpretation Comments HEMATOCRIT (test code = HCT/ABG) 29 % 33.0-45.0 L POC LACTIC [id number] 14:28:00 Test Item Value Reference Range Interpretation Comments POC LACTIC ACID (test code = 1.3 mmol/l 0.9-1.7 N POCLAC) GLUCOSE [id number] 14:10:00 Test Item Value Reference Range Interpretation Comments GLUCOSE BEDSIDE (test 182 MG/DL 70-110 H Perfor med by certified code = GLUBED) 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[facility] GLUCOSE [id number] 10:38:00 Test Item Value Reference Range Interpretation Comments GLUCOSE BEDSIDE (test 251 MG/DL 70-110 H Perfor med by certified code = GLUBED) 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[facility] [id number] 08:07:00 Test Item Value Reference Range Interpretation Comments VANCOMYCIN (test code = VANCO) 22.4 mcg/mL COMMENTS: yarn weight and strength tester: draw vanc level before dialysis on Sunday 07/01BASIC METABOLIC [id number] 07:58:00 Test Item Value Reference Range Interpretation Comments SODIUM (test code = 140 mEq/L 134-147 N NA) POTASSIUM (test code 4.6 mEq/L 3.4-5.0 N = K) CHLORIDE (test code 102 mEq/L 100-108 N = CL) CARBON DIOXIDE (test 27 mEq/l 21-33 N code = CO2) ANION GAP (test code 16 0-20 N = GAP) GLUCOSE (test code = 142 mg/dL 70-110 H GLU) BLOOD UREA NITROGEN 29 mg/dL 7-18 H (test code = BUN) GLOMERULAR 9.7 80-90 L The Glomerular FILTRATION RATE Filtration R ate is a (test code = GFR) calculated parameterbased on serum Creatinine, pat ient age and sex. GFR va luesless than 60 mL/min/ 1.73 square meters a re indicative ofCh ronic Kidney Disease. Values less than 15 mL/min/1.73squa re meters indicate Kidney failure. The calculation forGFR is based on the CKD-EPI (2020) calculat ion. This formulais race indifferent and is the recommended for bhumika for GFRby the [facility].The GFR will not calculate if th e sex is unknown or if thepatient's ag e is <18 years. CREATININE (test 4.7 mg/dL 0.6-1.3 H code = CREAT) CALCIUM (test code = 9.7 mg/dL 8.0-10.5 N CA) [id number] 07:58:00 Test Item Value Reference Range Interpretation Comments PHOSPHOROUS (test code = PHOS) 4.6 MG/DL 2.5-4.9 N [id number] 07:58:00 Test Item Value Reference Range Interpretation Comments MAGNESIUM (test code = MAG) 2.20 mg/dL 1.80-2.40 N CBC W/AUTO [id number] 07:39:00 Test Item Value Reference Range Interpretation Comments WHITE BLOOD CELL (test code = 9.9 x10 3/uL 4.5-11.0 N WBC) RED BLOOD CELL (test code = 2.96 x10 6/uL 3.54-5.02 L RBC) HEMOGLOBIN (test code = HGB) 9.2 g/dL 11.0-15.0 L HEMATOCRIT (test code = HCT) 30.6 % 33.0-45.0 L MEAN CELL VOLUME (test code = 103.4 fL 81.0-99.0 H MCV) MEAN CELL HGB (test code = MCH) 31.1 pg 27.0-33.0 N MEAN CELL HGB CONCETRATION 30.1 g/dL 33.0-37.0 L (test code = MCHC) RED CELL DISTRIBUTION WIDTH CV 15.3 % 11.5-14.5 H (test code = RDW) RED CELL DISTRIBUTION WIDTH SD 56.6 fL 37.0-54.0 H (test code = RDW-SD) PLATELET COUNT (test code = 200 x10 3/uL 150-400 N PLT) MEAN PLATELET VOLUME (test code 9.7 fL 7.0-9.0 H = MPV) NEUTROPHIL % (test code = NT%) 80.7 % 56.0-77.0 H IMMATURE GRANULOCYTE % (test 0.4 % 0.0-2.0 N code = IG%) LYMPHOCYTE % (test code = LY%) 7.7 % 14.0-32.0 L MONOCYTE % (test code = MO%) 8.2 % 4.8-9.0 N EOSINOPHIL % (test code = EO%) 2.8 % 0.3-3.7 N BASOPHIL % (test code = BA%) 0.2 % 0.0-2.0 N NUCLEATED RBC % (test code = 0.0 % 0-0 N NRBC%) NEUTROPHIL # (test code = NT#) 7.99 x10 3/uL 2.0-7.6 H IMMATURE GRANULOCYTE # (test 0.04 x10 3/uL 0.00-0.03 H code = IG#) LYMPHOCYTE # (test code = LY#) 0.76 x10 3/uL 1.0-3.8 L MONOCYTE # (test code = MO#) 0.81 x10 3/uL 0.1-0.8 H EOSINOPHIL # (test code = EO#) 0.28 x10 3/uL 0.0-0.2 H BASOPHIL # (test code = BA#) 0.02 x10 3/uL 0.0-0.2 N NUCLEATED RBC # (test code = 0.00 x10 3/uL 0.0-0.1 N NRBC#) MANUAL DIFF REQUIRED (test code NO = MDIFF) GLUCOSE [id number] 05:20:00 Test Item Value Reference Range Interpretation Comments GLUCOSE BEDSIDE (test 148 MG/DL 70-110 H Perfor med by certified code = GLUBED) 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[facility] - XR CHEST 1 [id number] 00:00:00 [facility] 1955 Sex: F FAX: Delmy Howell [phone] [place]: St: ADM FAX: Serge Shetty MD FAX: Jim Mazariegos MD [phone] FAX: Adonis Canchola MD [phone] Name: JENN MOTTA [facility] : 1955 Age/S: 67/F [address] [place] [address] Blvd Unit #: [id number] Loc: G.3307 [place] [address] Phys: Serge Shetty MD Acct: [id number] Dis Date: Status: ADM IN PHONE #: [phone] Exam Date: 07/01/2022 1537 FAX #: [phone] Reason: hypoxia EXAMS: CPT CODE: [id number] XR CHEST 1 V 22470 PROCEDURE INFORMATION: Exam: XR Chest Exam date and time: 07/01/2022 3:05 PM Age: 67 years old Clinical indication: Other: Hypoxia TECHNIQUE: Imaging protocol: Radiologic exam of the chest. Views: 1 view. COMPARISON: CT CHEST W/OCONTRAST 06/22/2022 9:53 AM FINDINGS: Tubes, catheters and devices: Left chest dialysis catheter with the tip in the right atrium. Lungs: Hazy airspace and interstitial opacities within both lungs, which may represent pulmonary edema, pneumonitis and/or atelectasis. Pleural spaces: Moderate right pleural effusion. Left costophrenic angle sharp. No definite pneumothorax. Heart/Mediastinum: Cardiac silhouette moderately enlarged. Vasculature: Tortuous aorta with calcifications at the arch. Bones/joints: Cervical spine fusion hardware. Degenerative changes within the spine. IMPRESSION: 1. Cardiac silhouette moderately enlarged. 2. Moderate right pleural effusion. 3. Hazy airspace and interstitial opacities within both lungs, which may represent pulmonary edema, pneumonitis and/or atelectasis. Anne ctronically Signed by Amador Mora on 07/01/2022 at 1741 Reported and signed by: Sha Mora M.D. CC: Delmy Ashton MD; Serge Shetty MD; Jim Dhillon MD; Adonis Gaytan MD Technologist: Susanna Schroeder, RT(R) Trnscrd Date/Time/By: 07/01/2022 (1740) : By: [email or web address] Orig Print D/T: S: 07/01/2022 (1740) PAGE 1 Signed Report- US PELVIS [id number] 00:00:00 [facility] 1955 Sex: F Name: JENN MOTTA [facility] : 1955 Age/S: 67 / F [address] [place] [address] Unit #: [id number] Loc: [place] [address] Phys: Adonis Gatyan MD Acct: [id number] Dis Date: Status: ADM IN PHONE #: [phone] Exam Date: 07/01/2022 1406 FAX #: [phone] Reason: DUB...2 weeks of bleedingafter 15 years of men EXAMS: CPT CODE: [id number] US PELVIS COMPLETE [id number] PROCEDURE INFORMATION: Exam: US Pelvis Complete, Transabdominal and US Pelvis, Transvaginal Exam date and time: 07/01/2022 1:27 PM Age: 67 years old Clinical indication: Other: Post menopausal bleeding; Additional info: Dub. .() TECHNIQUE: Imaging protocol: Real-time complete transabdominal and transvaginal pelvic ultrasoundwith image documentation. Transvaginal imaging was used for better evaluation of the endometrium, adnexa, and/or cervix. COMPARISON: US DUP VEIN YEIMI 06/22/2022 10:54 AM FINDINGS: Limited exam Uterus: Uterus measures 8.8 cm length. Endometrial stripe is suboptimally visualized measuring 0.54 cm thickness. Ill-defined 1.0 cm fibroid lower uterine segment; there may be additional fibroids including calcified fibroids that are not well visualized. Cervix: Fluid in the endocervical canal. Nabothian cysts. Right ovary/adnexa: Right ovary not visualized due to overlying bowel gas. Left ovary/adnexa: Left ovary not visualized due to overlying bowel gas. Intraperitoneal space: No free fluid is seen. Urinary bladder: The bladder is not imaged. IMPRESSION: Limited exam 1. Probable uterine fibroids. If further delineation is desired, an MRI pelvis without and with IV contrast can be obtained. 2. Fluid in the endocervical canal of uncertain etiology, may be related to history of bleeding. 3. Ovaries not visualized. at 1433 Reported and signed by:Vladimir Moran M.D. CC: Delmy Ashton MD; Jim Dhillon MD; Adonis Gaytan MD Technologist: Karol Quinn RDMS(AB)(OB) Trnscb Date/Time: 07/01/2022 (1433) [email or web address] Orig Print D/T: S: 07/01/2022 (2454) Probe: PAGE 1 Signed Report- US TRANSVAGINAL NON [id number] 00:00:00[facility] SHOSHANA ARCADIAName: JENN MOTTA : 1955 Sex: F Name: GRAEME MOTTAECCA [facility] : 1955 Age/S: 67 / F [address] [place] [address] Unit #: [id number] Loc: [place] [address] Phys: Adonis Gaytan MD Acct: [id number] Dis Date: Status: ADM IN PHONE #: [phone] Exam Date: 07/01/2022 1407 FAX #: [phone] Reason: see US Pelvic Non OB Complete EXAMS: CPT CODE: [id number] [place] [id number] PROCEDURE INFORMATION: Exam: US Pelvis Complete, Transabdominal and US Pelvis, Transvaginal Exam date and time: 07/01/2022 1:27 PM Age: 67 years old Clinical indication: Other: Post menopausal bleeding; Additional info: Dub. . () TECHNIQUE:Imaging protocol: Real-time complete transabdominal and transvaginal pelvic ultrasound with image documentation. Transvaginal imaging was used for better evaluation of the endometrium, adnexa, and/or cervix. COMPARISON: US DUP VEIN YEIMI 06/22/2022 10:54 AM FINDINGS: Limited exam Uterus: Uterus measures8.8 cm length. Endometrial stripe is suboptimally visualized measuring 0.54 cm thickness. Ill-defined 1.0 cm fibroid lower uterine segment; there may be additional fibroids including calcified fibroidsthat are not well visualized. Cervix: Fluid in the endocervical canal. Nabothian cysts. Right ovary/adnexa: Right ovary not visualized due to overlying bowel gas. Left ovary/adnexa: Left ovary not visu alized due to overlying bowel gas. Intraperitoneal space: No free fluid is seen. Urinary bladder: The bladder is not imaged. IMPRESSION: Limited exam 1. Probable uterine fibroids. If further delineation is desired, an MRI pelvis without and with IV contrast can be obtained. 2. Fluid in the endocervical canal of uncertain etiology, may be related to history of bleeding. 3. Ovaries not visualized. at 1433 Reported and signed by: Vladimir Moran M.D. CC: Delmy Ashton MD; Jim Dhillon MD; Adonis Gaytan MD Technologist: Karol Quinn RDMS(AB)(OB) Trnscb Date/Time: 07/01/2022 (1433) [email or web address] Orig Print D/T: S: 07/01/2022 (2904) Probe: [id number] PAGE 1 Signed ReportGLUCOSE [id number] 19:48:00 Test Item Value Reference Range Interpretation Comments GLUCOSE BEDSIDE (test 143 MG/DL 70-110 H Perfor med by certified code = GLUBED) 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[facility] GLUCOSE [id number] 18:11:00 Test Item Value Reference Range Interpretation Comments GLUCOSE BEDSIDE (test 152 MG/DL 70-110 H Perfor med by certified code = GLUBED) 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[facility] GLUCOSE [id number] 13:24:00 Test Item Value Reference Range Interpretation Comments GLUCOSE BEDSIDE (test 120 MG/DL 70-110 H Perfor med by certified code = GLUBED) 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[facility] BASIC METABOLIC [id number] 09:03:00 Test Item Value Reference Range Interpretation Comments SODIUM (test code = 138 mEq/L 134-147 N NA) POTASSIUM (test code 4.2 mEq/L 3.4-5.0 N = K) CHLORIDE (test code 100 mEq/L 100-108 N = CL) CARBON DIOXIDE (test 24 mEq/l 21-33 N code = CO2) ANION GAP (test code 19 0-20 N = GAP) GLUCOSE (test code = 220 mg/dL 70-110 H GLU) BLOOD UREA NITROGEN 22 mg/dL 7-18 H (test code = BUN) GLOMERULAR 11.4 80-90 L The Glomerular FILTRATION RATE Filtration R ate is a (test code = GFR) calculated parameterbased on serum Creatinine, pat ient age and sex. GFR va luesless than 60 mL/min/ 1.73 square meters a re indicative ofCh ronic Kidney Disease. Values less than 15 mL/min/1.73squa re meters indicate Kidney failure. The calculation forGFR is based on the CKD-EPI (2020) calculat ion. This formulais race indifferent and is the recommended for bhumika for GFRby the [facility] for Adults.The GFR will not calculate if th e sex is unknown or if thepatient's ag e is <18 years. CREATININE (test 4.1 mg/dL 0.6-1.3 H code = CREAT) CALCIUM (test code = 9.6 mg/dL 8.0-10.5 N CA) CBC W/AUTO [id number] 07:48:00 Test Item Value Reference Range Interpretation Comments WHITE BLOOD CELL (test code = 12.0 x10 3/uL 4.5-11.0 H WBC) RED BLOOD CELL (test code = 3.06 x10 6/uL 3.54-5.02 L RBC) HEMOGLOBIN (test code = HGB) 9.2 g/dL 11.0-15.0 L HEMATOCRIT (test code = HCT) 31.2 % 33.0-45.0 L MEAN CELL VOLUME (test code = 102.0 fL 81.0-99.0 H MCV) MEAN CELL HGB (test code = 30.1 pg 27.0-33.0 N MCH) MEAN CELL HGB CONCETRATION 29.5 g/dL 33.0-37.0 L (test code = MCHC) RED CELL DISTRIBUTION WIDTH CV 14.9 % 11.5-14.5 H (test code = RDW) RED CELL DISTRIBUTION WIDTH SD 54.9 fL 37.0-54.0 H (test code = RDW-SD) PLATELET COUNT (test code = 195 x10 3/uL 150-400 N PLT) MEAN PLATELET VOLUME (test 9.1 fL 7.0-9.0 H code = MPV) NEUTROPHIL % (test code = NT%) 90.8 % 56.0-77.0 H IMMATURE GRANULOCYTE % (test 0.6 % 0.0-2.0 N code = IG%) LYMPHOCYTE % (test code = LY%) 3.1 % 14.0-32.0 L MONOCYTE % (test code = MO%) 4.9 % 4.8-9.0 N EOSINOPHIL % (test code = EO%) 0.5 % 0.3-3.7 N BASOPHIL % (test code = BA%) 0.1 % 0.0-2.0 N NUCLEATED RBC % (test code = 0.0 % 0-0 N NRBC%) NEUTROPHIL # (test code = NT#) 10.86 x10 3/uL 2.0-7.6 H IMMATURE GRANULOCYTE # (test 0.07 x10 3/uL 0.00-0.03 H code = IG#) LYMPHOCYTE # (test code = LY#) 0.37 x10 3/uL 1.0-3.8 L MONOCYTE # (test code = MO#) 0.59 x10 3/uL 0.1-0.8 N EOSINOPHIL # (test code = EO#) 0.06 x10 3/uL 0.0-0.2 N BASOPHIL # (test code = BA#) 0.01 x10 3/uL 0.0-0.2 N NUCLEATED RBC # (test code = 0.00 x10 3/uL 0.0-0.1 N NRBC#) MANUAL DIFF REQUIRED (test NO code = MDIFF) GLUCOSE [id number] 20:09:00 Test Item Value Reference Range Interpretation Comments GLUCOSE BEDSIDE (test 172 MG/DL 70-110 H Perfor med by certified code = GLUBED) 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[facility] GLUCOSE [id number] 15:48:00 Test Item Value Reference Range Interpretation Comments GLUCOSE BEDSIDE (test 108 MG/DL 70-110 N Perfor med by certified code = GLUBED) 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[facility] GLUCOSE [id number] 11:35:00 Test Item Value Reference Range Interpretation Comments GLUCOSE BEDSIDE (test 172 MG/DL 70-110 H Perfor med by certified code = GLUBED) 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[facility] GLUCOSE [id number] 08:25:00 Test Item Value Reference Range Interpretation Comments GLUCOSE BEDSIDE (test 186 MG/DL 70-110 H Perfor med by certified code = GLUBED) 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[facility] BASIC METABOLIC [id number] 07:50:00 Test Item Value Reference Range Interpretation Comments SODIUM (test code = 137 mEq/L 134-147 N NA) POTASSIUM (test code 4.3 mEq/L 3.4-5.0 N = K) CHLORIDE (test code 102 mEq/L 100-108 N = CL) CARBON DIOXIDE (test 24 mEq/l 21-33 N code = CO2) ANION GAP (test code 15 0-20 N = GAP) GLUCOSE (test code = 197 mg/dL 70-110 H GLU) BLOOD UREA NITROGEN 28 mg/dL 7-18 H (test code = BUN) GLOMERULAR 9.5 80-90 L The Glomerular FILTRATION RATE Filtration R ate is a (test code = GFR) calculated parameterbased on serum Creatinine, pat ient age and sex. GFR va luesless than 60 mL/min/ 1.73 square meters a re indicative ofCh ronic Kidney Disease. Values less than 15 mL/min/1.73squa re meters indicate Kidney failure. The calculation forGFR is based on the CKD-EPI (2020) calculat ion. This formulais race indifferent and is the recommended for bhumika for GFRby the [facility] for Adults.The GFR will not calculate if th e sex is unknown or if thepatient's ag e is <18 years. CREATININE (test 4.8 mg/dL 0.6-1.3 H code = CREAT) CALCIUM (test code = 9.3 mg/dL 8.0-10.5 N CA) [id number] 07:50:00 Test Item Value Reference Range Interpretation Comments PHOSPHOROUS (test code = PHOS) 5.5 MG/DL 2.5-4.9 H [id number] 07:50:00 Test Item Value Reference Range Interpretation Comments MAGNESIUM (test code = MAG) 2.32 mg/dL 1.80-2.40 N CBC W/AUTO [id number] 07:28:00 Test Item Value Reference Range Interpretation Comments WHITE BLOOD CELL (test code = 10.0 x10 3/uL 4.5-11.0 N WBC) RED BLOOD CELL (test code = 2.96 x10 6/uL 3.54-5.02 L RBC) HEMOGLOBIN (test code = HGB) 9.0 g/dL 11.0-15.0 L HEMATOCRIT (test code = HCT) 30.7 % 33.0-45.0 L MEAN CELL VOLUME (test code = 103.7 fL 81.0-99.0 H MCV) MEAN CELL HGB (test code = MCH) 30.4 pg 27.0-33.0 N MEAN CELL HGB CONCETRATION 29.3 g/dL 33.0-37.0 L (test code = MCHC) RED CELL DISTRIBUTION WIDTH CV 15.3 % 11.5-14.5 H (test code = RDW) RED CELL DISTRIBUTION WIDTH SD 58.1 fL 37.0-54.0 H (test code = RDW-SD) PLATELET COUNT (test code = 170 x10 3/uL 150-400 N PLT) MEAN PLATELET VOLUME (test code 9.7 fL 7.0-9.0 H = MPV) NEUTROPHIL % (test code = NT%) 86.3 % 56.0-77.0 H IMMATURE GRANULOCYTE % (test 0.3 % 0.0-2.0 N code = IG%) LYMPHOCYTE % (test code = LY%) 3.8 % 14.0-32.0 L MONOCYTE % (test code = MO%) 7.3 % 4.8-9.0 N EOSINOPHIL % (test code = EO%) 2.2 % 0.3-3.7 N BASOPHIL % (test code = BA%) 0.1 % 0.0-2.0 N NUCLEATED RBC % (test code = 0.0 % 0-0 N NRBC%) NEUTROPHIL # (test code = NT#) 8.61 x10 3/uL 2.0-7.6 H IMMATURE GRANULOCYTE # (test 0.03 x10 3/uL 0.00-0.03 N code = IG#) LYMPHOCYTE # (test code = LY#) 0.38 x10 3/uL 1.0-3.8 L MONOCYTE # (test code = MO#) 0.73 x10 3/uL 0.1-0.8 N EOSINOPHIL # (test code = EO#) 0.22 x10 3/uL 0.0-0.2 H BASOPHIL # (test code = BA#) 0.01 x10 3/uL 0.0-0.2 N NUCLEATED RBC # (test code = 0.00 x10 3/uL 0.0-0.1 N NRBC#) MANUAL DIFF REQUIRED (test code NO = MDIFF) GLUCOSE [id number] 19:59:00 Test Item Value Reference Range Interpretation Comments GLUCOSE BEDSIDE (test 141 MG/DL 70-110 H Perfor med by certified code = GLUBED) 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[facility] GLUCOSE [id number] 18:58:00 Test Item Value Reference Range Interpretation Comments GLUCOSE BEDSIDE (test 156 MG/DL 70-110 H Perfor med by certified code = GLUBED) 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[facility] GLUCOSE [id number] 11:35:00 Test Item Value Reference Range Interpretation Comments GLUCOSE BEDSIDE (test 112 MG/DL 70-110 H Perfor med by certified code = GLUBED) 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[facility] GLUCOSE [id number] 09:19:00 Test Item Value Reference Range Interpretation Comments GLUCOSE BEDSIDE (test 167 MG/DL 70-110 H [facility] med by certified code = GLUBED) 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[facility] BASIC METABOLIC [id number] 08:14:00 Test Item Value Reference Range Interpretation Comments SODIUM (test code = 138 mEq/L 134-147 N NA) POTASSIUM (test code 4.3 mEq/L 3.4-5.0 N = K) CHLORIDE (test code 101 mEq/L 100-108 N = CL) CARBON DIOXIDE (test 25 mEq/l 21-33 N code = CO2) ANION GAP (test code 17 0-20 N = GAP) GLUCOSE (test code = 165 mg/dL 70-110 H GLU) BLOOD UREA NITROGEN 25 mg/dL 7-18 H (test code = BUN) GLOMERULAR 12.1 80-90 L The Glomerular FILTRATION RATE Filtration R ate is a (test code = GFR) calculated parameterbased on serum Creatinine, pat ient age and sex. GFR va luesless than 60 mL/min/ 1.73 square meters a re indicative ofCh ronic Kidney Disease. Values less than 15 mL/min/1.73squa re meters indicate Kidney failure. The calculation forGFR is based on the CKD-EPI (2020) calculat ion. This formulais race indifferent and is the recommended for bhumika for GFRby the [facility] on for Adults.The GFR will not calculate if th e sex is unknown or if thepatient's ag e is <18 years. CREATININE (test 3.9 mg/dL 0.6-1.3 H code = CREAT) CALCIUM (test code = 9.1 mg/dL 8.0-10.5 N CA) BASIC METABOLIC [id number] 06:43:00 Test Item Value Reference Range Interpretation Comments SODIUM (test code = 136 mEq/L 134-147 N NA) POTASSIUM (test code 4.2 mEq/L 3.4-5.0 N = K) CHLORIDE (test code 100 mEq/L 100-108 N = CL) CARBON DIOXIDE (test 22 mEq/l 21-33 N code = CO2) ANION GAP (test code 18 0-20 N = GAP) GLUCOSE (test code = 163 mg/dL 70-110 H GLU) BLOOD UREA NITROGEN 22 mg/dL 7-18 H (test code = BUN) GLOMERULAR 12.1 80-90 L The Glomerular FILTRATION RATE Filtration R ate is a (test code = GFR) calculated parameterbased on serum Creatinine, pat ient age and sex. GFR va luesless than 60 mL/min/ 1.73 square meters a re indicative ofCh ronic Kidney Disease. Values less than 15 mL/min/1.73squa re meters indicate Kidney failure. The calculation forGFR is based on the CKD-EPI (2020) calculat ion. This formulais race indifferent and is the recommended for bhumika for GFRby the [facility] n[facility] Kidney Found[facility] on for Adults.The GFR will not calculate if th e sex is unknown or if thepatient's ag e is <18 years. CREATININE (test 3.9 mg/dL 0.6-1.3 H code = CREAT) CALCIUM (test code = 9.3 mg/dL 8.0-10.5 N CA) COMMENTS: To be done morning of Heart CathCBC W/AUTO [id number] 06:23:00 Test Item Value Reference Range Interpretation Comments WHITE BLOOD CELL (test code = 10.8 x10 3/uL 4.5-11.0 N WBC) RED BLOOD CELL (test code = 2.89 x10 6/uL 3.54-5.02 L RBC) HEMOGLOBIN (test code = HGB) 8.9 g/dL 11.0-15.0 L HEMATOCRIT (test code = HCT) 30.0 % 33.0-45.0 L MEAN CELL VOLUME (test code = 103.8 fL 81.0-99.0 H MCV) MEAN CELL HGB (test code = MCH) 30.8 pg 27.0-33.0 N MEAN CELL HGB CONCETRATION 29.7 g/dL 33.0-37.0 L (test code = MCHC) RED CELL DISTRIBUTION WIDTH CV 15.6 % 11.5-14.5 H (test code = RDW) RED CELL DISTRIBUTION WIDTH SD 58.3 fL 37.0-54.0 H (test code = RDW-SD) PLATELET COUNT (test code = 149 x10 3/uL 150-400 L PLT) MEAN PLATELET VOLUME (test code 9.7 fL 7.0-9.0 H = MPV) NEUTROPHIL % (test code = NT%) 90.4 % 56.0-77.0 H IMMATURE GRANULOCYTE % (test 0.5 % 0.0-2.0 N code = IG%) LYMPHOCYTE % (test code = LY%) 2.7 % 14.0-32.0 L MONOCYTE % (test code = MO%) 4.9 % 4.8-9.0 N EOSINOPHIL % (test code = EO%) 1.4 % 0.3-3.7 N BASOPHIL % (test code = BA%) 0.1 % 0.0-2.0 N NUCLEATED RBC % (test code = 0.0 % 0-0 N NRBC%) NEUTROPHIL # (test code = NT#) 9.74 x10 3/uL 2.0-7.6 H IMMATURE GRANULOCYTE # (test 0.05 x10 3/uL 0.00-0.03 H code = IG#) LYMPHOCYTE # (test code = LY#) 0.29 x10 3/uL 1.0-3.8 L MONOCYTE # (test code = MO#) 0.53 x10 3/uL 0.1-0.8 N EOSINOPHIL # (test code = EO#) 0.15 x10 3/uL 0.0-0.2 N BASOPHIL # (test code = BA#) 0.01 x10 3/uL 0.0-0.2 N NUCLEATED RBC # (test code = 0.00 x10 3/uL 0.0-0.1 N NRBC#) MANUAL DIFF REQUIRED (test code NO = MDIFF) COMMENTS: To be done morning of Heart CathGLUCOSE [id number] 21:04:00 Test Item Value Reference Range Interpretation Comments GLUCOSE BEDSIDE (test 99 MG/DL 70-110 N Perfor med by certified code = GLUBED) 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[facility] GLUCOSE [id number] 16:53:00 Test Item Value Reference Range Interpretation Comments GLUCOSE BEDSIDE (test 147 MG/DL 70-110 H Perfor med by certified code = GLUBED) 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[facility] GLUCOSE [id number] 15:43:00 Test Item Value Reference Range Interpretation Comments GLUCOSE BEDSIDE (test 154 MG/DL 70-110 H Perfor med by certified code = GLUBED) 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[facility] [id number] 14:34:00 Test Item Value Reference Range Interpretation Comments ACT-ISTAT (test code 281 SEC 74-137 H Perform ed by certified = ACTI) 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[facility] [id number] 08:42:00 Test Item Value Reference Range Interpretation Comments HGBA1C% (test code = HGBA1C%) 5.8 %A1C 4.8-6.0 N GLUCOSE [id number] 08:37:00 Test Item Value Reference Range Interpretation Comments GLUCOSE BEDSIDE (test 171 MG/DL 70-110 H Perfor med by certified code = GLUBED) 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[facility] CBC W/AUTO [id number] 08:24:00 Test Item Value Reference Range Interpretation Comments WHITE BLOOD CELL (test code = 9.4 x10 3/uL 4.5-11.0 N WBC) RED BLOOD CELL (test code = 2.83 x10 6/uL 3.54-5.02 L RBC) HEMOGLOBIN (test code = HGB) 8.6 g/dL 11.0-15.0 L HEMATOCRIT (test code = HCT) 29.2 % 33.0-45.0 L MEAN CELL VOLUME (test code = 103.2 fL 81.0-99.0 H MCV) MEAN CELL HGB (test code = MCH) 30.4 pg 27.0-33.0 N MEAN CELL HGB CONCETRATION 29.5 g/dL 33.0-37.0 L (test code = MCHC) RED CELL DISTRIBUTION WIDTH CV 15.5 % 11.5-14.5 H (test code = RDW) RED CELL DISTRIBUTION WIDTH SD 58.4 fL 37.0-54.0 H (test code = RDW-SD) PLATELET COUNT (test code = 139 x10 3/uL 150-400 L PLT) MEAN PLATELET VOLUME (test code 9.7 fL 7.0-9.0 H = MPV) NEUTROPHIL % (test code = NT%) 82.6 % 56.0-77.0 H IMMATURE GRANULOCYTE % (test 0.6 % 0.0-2.0 N code = IG%) LYMPHOCYTE % (test code = LY%) 6.4 % 14.0-32.0 L MONOCYTE % (test code = MO%) 8.8 % 4.8-9.0 N EOSINOPHIL % (test code = EO%) 1.5 % 0.3-3.7 N BASOPHIL % (test code = BA%) 0.1 % 0.0-2.0 N NUCLEATED RBC % (test code = 0.0 % 0-0 N NRBC%) NEUTROPHIL # (test code = NT#) 7.78 x10 3/uL 2.0-7.6 H IMMATURE GRANULOCYTE # (test 0.06 x10 3/uL 0.00-0.03 H code = IG#) LYMPHOCYTE # (test code = LY#) 0.60 x10 3/uL 1.0-3.8 L MONOCYTE # (test code = MO#) 0.83 x10 3/uL 0.1-0.8 H EOSINOPHIL # (test code = EO#) 0.14 x10 3/uL 0.0-0.2 N BASOPHIL # (test code = BA#) 0.01 x10 3/uL 0.0-0.2 N NUCLEATED RBC # (test code = 0.00 x10 3/uL 0.0-0.1 N NRBC#) MANUAL DIFF REQUIRED (test code NO = MDIFF) BASIC METABOLIC [id number] 07:56:00 Test Item Value Reference Range Interpretation Comments SODIUM (test code = 136 mEq/L 134-147 N NA) POTASSIUM (test code 4.5 mEq/L 3.4-5.0 N = K) CHLORIDE (test code 98 mEq/L 100-108 L = CL) CARBON DIOXIDE (test 25 mEq/l 21-33 N code = CO2) ANION GAP (test code 18 0-20 N = GAP) GLUCOSE (test code = 169 mg/dL 70-110 H GLU) BLOOD UREA NITROGEN 34 mg/dL 7-18 H (test code = BUN) GLOMERULAR 9.2 80-90 L The Glomerular FILTRATION RATE Filtration R ate is a (test code = GFR) calculated parameterbased on serum Creatinine, pat ient age and sex. GFR va luesless than 60 mL/min/ 1.73 square meters a re indicative ofCh ronic Kidney Disease. Values less than 15 mL/min/1.73squa re meters indicate Kidney failure. The calculation forGFR is based on the CKD-EPI (2020) calculat ion. This formulais race indifferent and is the recommended for bhumika for GFRby the [facility] on for Adults.The GFR will not calculate if th e sex is unknown or if thepatient's ag e is <18 years. CREATININE (test 4.9 mg/dL 0.6-1.3 H code = CREAT) CALCIUM (test code = 9.4 mg/dL 8.0-10.5 N CA) COAGULATION TIME [id number] 07:05:00 Test Item Value Reference Range Interpretation Comments COAGULATION TIME 245 SECONDS Performed b y ACTIVATED (test code = certi fied counter control operator ACT) at [facility] COAGULATION TIME [id number] 07:05:00 Test Item Value Reference Range Interpretation Comments COAGULATION TIME 234 SECONDS Performed b y ACTIVATED (test code = certi fied counter control operator ACT) at [facility] GLUCOSE [id number] 06:07:00 Test Item Value Reference Range Interpretation Comments GLUCOSE BEDSIDE (test 170 MG/DL 70-110 H Perfor med by certified code = GLUBED) 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[facility] GLUCOSE [id number] 19:40:00 Test Item Value Reference Range Interpretation Comments GLUCOSE BEDSIDE (test 143 MG/DL 70-110 H Perfor med by certified code = GLUBED) 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[facility] [id number] 17:22:00 Test Item Value Reference Range Interpretation Comments ACT-ISTAT (test code 275 SEC 74-137 H Perform ed by certified = ACTI) 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[facility] [id number] 16:11:00 Test Item Value Reference Range Interpretation Comments ACT-ISTAT (test code 251 SEC 74-137 H Perform ed by certified = ACTI) 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[facility] GLUCOSE [id number] 14:10:00 Test Item Value Reference Range Interpretation Comments GLUCOSE BEDSIDE (test 192 MG/DL 70-110 H Perfor med by certified code = GLUBED) 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[facility] GLUCOSE [id number] 11:52:00 Test Item Value Reference Range Interpretation Comments GLUCOSE BEDSIDE (test 215 MG/DL 70-110 H Perfor med by certified code = GLUBED) 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[facility] COVID 19 Asymptomatic IH [id number] 10:33:00 Test Item Value Reference Range Interpretation Comments COVID 19 Asymptomatic Negative Negative A nega tive result is IH AG (test code = presumpti ve and should COVNONPUIAG) be confirmedwit h an FDA authorized mole cular assay, if neces lisa forpatient asmita gordon.A positive result does not rule out co-inf ections withother patho gens.This test detects kevin th viable (live) and non-viable,SARS -CoV, and SARS-CoV-2. Adri t performance dep ends on theamount of vi marli (antigen) in th e sample.This adri t has not been FDA cleare d or approved; the t est hasbeen authori zed by FDA under an Em ergency Use Authorizati on(EUA) for use by labo ratories certified under the CLIA thatmeet the requirements to perform moderate, high or waivedcomplexit y tests. GLUCOSE [id number] 08:19:00 Test Item Value Reference Range Interpretation Comments GLUCOSE BEDSIDE (test 220 MG/DL 70-110 H Perfor med by certified code = GLUBED) 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[facility] COMPREHENSIVE METABOLIC [id number] 07:53:00 Test Item Value Reference Range Interpretation Comments SODIUM (test code = 137 mEq/L 134-147 N NA) POTASSIUM (test code 4.4 mEq/L 3.4-5.0 N = K) CHLORIDE (test code 98 mEq/L 100-108 L = CL) CARBON DIOXIDE (test 22 mEq/l 21-33 N code = CO2) ANION GAP (test code 21 0-20 H = GAP) GLUCOSE (test code = 201 mg/dL 70-110 H GLU) BLOOD UREA NITROGEN 39 mg/dL 7-18 H (test code = BUN) GLOMERULAR 8.2 80-90 L The Glomerular FILTRATION RATE Filtration R ate is a (test code = GFR) calculated parameterbased on serum Creatinin e, patient age and sex. GFR valuesless than 60 mL/min/1.73 squ are meters are saeid cative ofChronic Kidne y Disease. Values less than 15 mL/min/1.73squa re meters indicate Kidney failure. The calculation for GFR is based on the CK D-EPI (2020) calculat ion. This formulais race indifferent and is the recommended for bhumika for GFRby the [facility] Kidney Foundati on for Adults.The GFR will not calculate i f the sex is unknown or if thepatient's ag e is <18 years. CREATININE (test 5.4 mg/dL 0.6-1.3 H code = CREAT) TOTAL PROTEIN (test 6.7 g/dL 6.4-8.2 N code = PROT) ALBUMIN (test code = 3.50 g/dL 3.4-5.0 N ALB) CALCIUM (test code = 9.9 mg/dL 8.0-10.5 N CA) BILIRUBIN TOTAL 0.50 mg/dL 0.0-1.0 N (test code = BILT) SGOT/AST (test code 18 IUnit/L 15-37 N = AST) SGPT/ALT (test code 66 IUnit/L 30-65 H = ALT) ALKALINE PHOSPHATASE 241 IUnit/L 20-125 H TOTAL (test code = ALKP) [id number] 07:53:00 Test Item Value Reference Range Interpretation Comments PHOSPHOROUS (test code = PHOS) 6.8 MG/DL 2.5-4.9 H [id number] 07:53:00 Test Item Value Reference Range Interpretation Comments MAGNESIUM (test code = MAG) 2.24 mg/dL 1.80-2.40 GLUCOSE [id number] 06:28:00 Test Item Value Reference Range Interpretation Comments GLUCOSE BEDSIDE (test 214 MG/DL 70-110 H Perfor med by certified code = GLUBED) 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[facility] CBC W/AUTO [id number] 05:40:00 Test Item Value Reference Range Interpretation Comments WHITE BLOOD CELL (test code = 14.0 x10 3/uL 4.5-11.0 H WBC) RED BLOOD CELL (test code = 3.18 x10 6/uL 3.54-5.02 L RBC) HEMOGLOBIN (test code = HGB) 9.8 g/dL 11.0-15.0 L HEMATOCRIT (test code = HCT) 33.6 % 33.0-45.0 N MEAN CELL VOLUME (test code = 105.7 fL 81.0-99.0 H MCV) MEAN CELL HGB (test code = 30.8 pg 27.0-33.0 N MCH) MEAN CELL HGB CONCETRATION 29.2 g/dL 33.0-37.0 L (test code = MCHC) RED CELL DISTRIBUTION WIDTH CV 15.8 % 11.5-14.5 H (test code = RDW) RED CELL DISTRIBUTION WIDTH SD 59.8 fL 37.0-54.0 H (test code = RDW-SD) PLATELET COUNT (test code = 145 x10 3/uL 150-400 L PLT) MEAN PLATELET VOLUME (test 9.9 fL 7.0-9.0 H code = MPV) NEUTROPHIL % (test code = NT%) 81.7 % 56.0-77.0 H IMMATURE GRANULOCYTE % (test 0.4 % 0.0-2.0 N code = IG%) LYMPHOCYTE % (test code = LY%) 6.2 % 14.0-32.0 L MONOCYTE % (test code = MO%) 10.3 % 4.8-9.0 H EOSINOPHIL % (test code = EO%) 1.3 % 0.3-3.7 N BASOPHIL % (test code = BA%) 0.1 % 0.0-2.0 N NUCLEATED RBC % (test code = 0.0 % 0-0 N NRBC%) NEUTROPHIL # (test code = NT#) 11.42 x10 3/uL 2.0-7.6 H IMMATURE GRANULOCYTE # (test 0.06 x10 3/uL 0.00-0.03 H code = IG#) LYMPHOCYTE # (test code = LY#) 0.87 x10 3/uL 1.0-3.8 L MONOCYTE # (test code = MO#) 1.44 x10 3/uL 0.1-0.8 H EOSINOPHIL # (test code = EO#) 0.18 x10 3/uL 0.0-0.2 N BASOPHIL # (test code = BA#) 0.02 x10 3/uL 0.0-0.2 N NUCLEATED RBC # (test code = 0.00 x10 3/uL 0.0-0.1 N NRBC#) MANUAL DIFF REQUIRED (test NO code = MDIFF) COMMENTS: To be done morning of Heart CathRBC [id number] 05:40:00 Test Item Value Reference Range Interpretation Comments ANISOCYTOSIS (test code = ANISO) SLIGHT MACROCYTOSIS (test code = MACR) FEW COMMENTS: To be done morning of Heart Cath- XR FOOT 3 + V [id number] 00:00:00 [facility] 1955 Sex: F FAX: Delmy Howell [phone] [place]: St: ADM FAX: Sybil Marques MD [phone] FAX:Jim Mazariegos MD [phone] Name: PATKathieJENN [facility] : 1955 Age/S: 67/F [address] [place] [address] Unit #: [id number] Loc: [id number] [place] [address] Phys: Sybil Byers MD Acct: [id number] Dis Date: Status: ADM IN PHONE #: [phone] Exam Date: 06/25/2022 1610 FAX #: [phone] Reason: L foot ulcers EXAMS: CPT CODE: [id number] XR FOOT 3 + [place] 11868 PROCEDURE INFORMATION: Exam: XR Left Foot Exam date and time: 06/25/2022 3:37 PM Age: 67 years old Clinical indication: Other: L foot ulcers TECHNIQUE: Imaging protocol: Radiologic exam of the Left foot. Views: 3 or more views. AP Oblique Lateral COMPARISON: US DUP VEIN YEIMI 06/22/2022 10:54 AM FINDINGS: Bones/joints: See "Soft tissues" finding. Soft tissues: Soft tissue swelling is seen about the left foot and ankle. Moderate calcaneal spurring at the Achilles tendon and plantar fascia tendon insertion sites. There appears to be prior deformity of the mid shaft to head of the left 1st proximal phalanx. Mild degenerative changes about the left 1st interphalangeal joint and slight degenerative changes about the left 1st metatarsophalangealjoint. No acute fracture or dislocation. Vascular calcifications seen about the left foot and ankle.No plain film evidence of osteomyelitis. Notes: If there is further concern, recommend follow-up radi ographs or MRI for complete assessment. IMPRESSION: Soft tissue swelling is seen about the left footand ankle. Moderate calcaneal spurring at the Achilles tendon and plantar fascia tendon insertion sites. There appears to be prior deformity of the mid shaft to head of the left 1st proximal phalanx. Mild degenerative changes about the left 1st interphalangeal joint and slight degenerative changes about the left 1st metatarsophalangeal joint. No acute fracture or dislocation. No plain film evidence of osteomyelitis. at 0842 Reported and signed by: Jett Mosher M.D. CC: Delmy Ashton MD; Sybil Byers MD; Jim Dhillon MD Technologist: RT Gabbi(R) Trnscrd Date/Time/By: 06/26/2022 (0842) : By: [email or web address] Orig Print D/T: S: 06/26/2022 (841) PAGE 1 Signed Report GLUCOSE [id number] 19:44:00 Test Item Value Reference Range Interpretation Comments GLUCOSE BEDSIDE (test 198 MG/DL 70-110 H Perfor med by certified code = GLUBED) 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[facility] GLUCOSE [id number] 16:13:00 Test Item Value Reference Range Interpretation Comments GLUCOSE BEDSIDE (test 189 MG/DL 70-110 H Perfor med by certified code = GLUBED) 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[facility] GLUCOSE [id number] 11:12:00 Test Item Value Reference Range Interpretation Comments GLUCOSE BEDSIDE (test 186 MG/DL 70-110 H Perfor med by certified code = GLUBED) 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[facility] CBC W/AUTO [id number] 10:49:00 Test Item Value Reference Range Interpretation Comments WHITE BLOOD CELL (test code = 12.8 x10 3/uL 4.5-11.0 H WBC) RED BLOOD CELL (test code = 2.93 x10 6/uL 3.54-5.02 L RBC) HEMOGLOBIN (test code = HGB) 9.2 g/dL 11.0-15.0 L HEMATOCRIT (test code = HCT) 30.5 % 33.0-45.0 L MEAN CELL VOLUME (test code = 104.1 fL 81.0-99.0 H MCV) MEAN CELL HGB (test code = 31.4 pg 27.0-33.0 N MCH) MEAN CELL HGB CONCETRATION 30.2 g/dL 33.0-37.0 L (test code = MCHC) RED CELL DISTRIBUTION WIDTH CV 15.9 % 11.5-14.5 H (test code = RDW) RED CELL DISTRIBUTION WIDTH SD 59.7 fL 37.0-54.0 H (test code = RDW-SD) PLATELET COUNT (test code = 134 x10 3/uL 150-400 L PLT) MEAN PLATELET VOLUME (test 9.7 fL 7.0-9.0 H code = MPV) NEUTROPHIL % (test code = NT%) 84.6 % 56.0-77.0 H IMMATURE GRANULOCYTE % (test 0.4 % 0.0-2.0 N code = IG%) LYMPHOCYTE % (test code = LY%) 5.1 % 14.0-32.0 L MONOCYTE % (test code = MO%) 8.3 % 4.8-9.0 N EOSINOPHIL % (test code = EO%) 1.5 % 0.3-3.7 N BASOPHIL % (test code = BA%) 0.1 % 0.0-2.0 N NUCLEATED RBC % (test code = 0.0 % 0-0 N NRBC%) NEUTROPHIL # (test code = NT#) 10.84 x10 3/uL 2.0-7.6 H IMMATURE GRANULOCYTE # (test 0.05 x10 3/uL 0.00-0.03 H code = IG#) LYMPHOCYTE # (test code = LY#) 0.65 x10 3/uL 1.0-3.8 L MONOCYTE # (test code = MO#) 1.06 x10 3/uL 0.1-0.8 H EOSINOPHIL # (test code = EO#) 0.19 x10 3/uL 0.0-0.2 N BASOPHIL # (test code = BA#) 0.01 x10 3/uL 0.0-0.2 N NUCLEATED RBC # (test code = 0.00 x10 3/uL 0.0-0.1 N NRBC#) MANUAL DIFF REQUIRED (test NO code = MDIFF) COMMENTS: Daily while on HeparinCOMPREHENSIVE METABOLIC [id number] 07:37:00 Test Item Value Reference Range Interpretation Comments SODIUM (test code = 137 mEq/L 134-147 N NA) POTASSIUM (test code 4.3 mEq/L 3.4-5.0 N = K) CHLORIDE (test code 97 mEq/L 100-108 L = CL) CARBON DIOXIDE (test 25 mEq/l 21-33 N code = CO2) ANION GAP (test code 19 0-20 N = GAP) GLUCOSE (test code = 169 mg/dL 70-110 H GLU) BLOOD UREA NITROGEN 31 mg/dL 7-18 H (test code = BUN) GLOMERULAR 10.2 80-90 L The Glomerular FILTRATION RATE Filtration R ate is a (test code = GFR) calculated parameterbased on serum Creatinin e, patient age and sex. GFR valuesless than 60 mL/min/1.73 squ are meters are saeid cative ofChronic Kidne y Disease. Values less than 15 mL/min/1.73squa re meters indicate Kidney failure. The calculation for GFR is based on the CK D-EPI (2020) calculat ion. This formulais race indifferent and is the recommended for bhumika for GFRby the [facility] Kidney Foundati on for Adults.The GFR will not calculate i f the sex is unknown or if thepatient's ag e is <18 years. CREATININE (test 4.5 mg/dL 0.6-1.3 H code = CREAT) TOTAL PROTEIN (test 6.5 g/dL 6.4-8.2 N code = PROT) ALBUMIN (test code = 3.30 g/dL 3.4-5.0 L ALB) CALCIUM (test code = 9.5 mg/dL 8.0-10.5 N CA) BILIRUBIN TOTAL 0.50 mg/dL 0.0-1.0 N (test code = BILT) SGOT/AST (test code 22 IUnit/L 15-37 N = AST) SGPT/ALT (test code 79 IUnit/L 30-65 H = ALT) ALKALINE PHOSPHATASE 272 IUnit/L 20-125 H TOTAL (test code = ALKP) GLUCOSE [id number] 05:53:00 Test Item Value Reference Range Interpretation Comments GLUCOSE BEDSIDE (test 159 MG/DL 70-110 H Perfor med by certified code = GLUBED) 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[facility] GLUCOSE [id number] 19:09:00 Test Item Value Reference Range Interpretation Comments GLUCOSE BEDSIDE (test 171 MG/DL 70-110 H Perfor med by certified code = GLUBED) 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[facility] GLUCOSE [id number] 15:56:00 Test Item Value Reference Range Interpretation Comments GLUCOSE BEDSIDE (test 159 MG/DL 70-110 H Perfor med by certified code = GLUBED) 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[facility] GLUCOSE [id number] 12:56:00 Test Item Value Reference Range Interpretation Comments GLUCOSE BEDSIDE (test 110 MG/DL 70-110 N Perfor med by certified code = GLUBED) 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[facility] ACUTE HEPATITIS [id number] 12:08:00 Test Item Value Reference Range Interpretation Comments AB HEPATITIS A IGM (test NON REACTIVE INDEX NON REACT. code = HAVMAB) AG HEPATITIS B SURFACE NON REACTIVE INDEX NonReactive (test code = HBSAG) AB HEPATITIS B CORE IGM NON REACTIVE INDEX NON REACT. (test code = HBCMAB) AB HEPATITIS C (test code NON REACTIVE INDEX NON REACT. = HCVAB) AB HEPATITIS B [id number] 12:08:00 Test Item Value Reference Range Interpretation Comments AB HEPATITIS B 11.7 mIU/mL See_Comment Verified by repeat SURFACE (test code = analysi s Status of HBSAB) Immunity Anti-H Bs Level --- I nconsis tent with Immun ity 0.0 - 9.9Consistent with Immunity >9.9Pe rformed At: [facility] [address] [place], [place] [id number] Kyle L MD Ph:[phone] [Automated mess age] The system [employer] generated this result transmitted ref erence range: Immunity >9.9. The reference r chikis was not used to interpret this result as normal/abnor mal. BASIC METABOLIC [id number] 08:08:00 Test Item Value Reference Range Interpretation Comments SODIUM (test code = 136 mEq/L 134-147 N NA) POTASSIUM (test code 4.9 mEq/L 3.4-5.0 N = K) CHLORIDE (test code 96 mEq/L 100-108 L = CL) CARBON DIOXIDE (test 23 mEq/l 21-33 N code = CO2) ANION GAP (test code 22 0-20 H = GAP) GLUCOSE (test code = 218 mg/dL 70-110 H GLU) BLOOD UREA NITROGEN 50 mg/dL 7-18 H (test code = BUN) GLOMERULAR 7.5 80-90 L The Glomerular FILTRATION RATE Filtration R ate is a (test code = GFR) calculated parameterbased on serum Creatinine, pat ient age and sex. GFR va luesless than 60 mL/min/ 1.73 square meters a re indicative ofCh ronic Kidney Disease. Values less than 15 mL/min/1.73squa re meters indicate Kidney failure. The calculation forGFR is based on the CKD-EPI (2020) calculat ion. This formulais race indifferent and is the recommended for bhumika for GFRby the [facility] Kidney Foundati on for Adults.The GFR will not calculate if th e sex is unknown or if thepatient's ag e is <18 years. CREATININE (test 5.8 mg/dL 0.6-1.3 H code = CREAT) CALCIUM (test code = 9.9 mg/dL 8.0-10.5 N CA) [id number] 08:08:00 Test Item Value Reference Range Interpretation Comments PHOSPHOROUS (test code = PHOS) 7.1 MG/DL 2.5-4.9 H [id number] 08:08:00 Test Item Value Reference Range Interpretation Comments MAGNESIUM (test code = MAG) 2.64 mg/dL 1.80-2.40 H CBC W/AUTO [id number] 07:09:00 Test Item Value Reference Range Interpretation Comments WHITE BLOOD CELL (test code = 13.3 x10 3/uL 4.5-11.0 H WBC) RED BLOOD CELL (test code = 3.02 x10 6/uL 3.54-5.02 L RBC) HEMOGLOBIN (test code = HGB) 9.3 g/dL 11.0-15.0 L HEMATOCRIT (test code = HCT) 30.9 % 33.0-45.0 L MEAN CELL VOLUME (test code = 102.3 fL 81.0-99.0 H MCV) MEAN CELL HGB (test code = 30.8 pg 27.0-33.0 N MCH) MEAN CELL HGB CONCETRATION 30.1 g/dL 33.0-37.0 L (test code = MCHC) RED CELL DISTRIBUTION WIDTH CV 16.5 % 11.5-14.5 H (test code = RDW) RED CELL DISTRIBUTION WIDTH SD 61.1 fL 37.0-54.0 H (test code = RDW-SD) PLATELET COUNT (test code = 152 x10 3/uL 150-400 N PLT) MEAN PLATELET VOLUME (test 9.7 fL 7.0-9.0 H code = MPV) NEUTROPHIL % (test code = NT%) 83.8 % 56.0-77.0 H IMMATURE GRANULOCYTE % (test 0.5 % 0.0-2.0 N code = IG%) LYMPHOCYTE % (test code = LY%) 5.3 % 14.0-32.0 L MONOCYTE % (test code = MO%) 8.3 % 4.8-9.0 N EOSINOPHIL % (test code = EO%) 1.9 % 0.3-3.7 N BASOPHIL % (test code = BA%) 0.2 % 0.0-2.0 N NUCLEATED RBC % (test code = 0.0 % 0-0 N NRBC%) NEUTROPHIL # (test code = NT#) 11.18 x10 3/uL 2.0-7.6 H IMMATURE GRANULOCYTE # (test 0.07 x10 3/uL 0.00-0.03 H code = IG#) LYMPHOCYTE # (test code = LY#) 0.70 x10 3/uL 1.0-3.8 L MONOCYTE # (test code = MO#) 1.10 x10 3/uL 0.1-0.8 H EOSINOPHIL # (test code = EO#) 0.25 x10 3/uL 0.0-0.2 H BASOPHIL # (test code = BA#) 0.03 x10 3/uL 0.0-0.2 N NUCLEATED RBC # (test code = 0.00 x10 3/uL 0.0-0.1 N NRBC#) MANUAL DIFF REQUIRED (test NO code = MDIFF) COMMENTS: Daily while on HeparinGLUCOSE [id number] 05:45:00 Test Item Value Reference Range Interpretation Comments GLUCOSE BEDSIDE (test 190 MG/DL 70-110 H Perfor med by certified code = GLUBED) 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[facility] GLUCOSE [id number] 19:34:00 Test Item Value Reference Range Interpretation Comments GLUCOSE BEDSIDE (test 159 MG/DL 70-110 H Perfor med by certified code = GLUBED) 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[facility] GLUCOSE [id number] 17:04:00 Test Item Value Reference Range Interpretation Comments GLUCOSE BEDSIDE (test 167 MG/DL 70-110 H Perfor med by certified code = GLUBED) 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[facility] UA RFLX MICR CULT IF [id number] 16:38:00 Test Item Value Reference Range Interpretation Comments UA COLOR (test code = COLU) MARIAH YEL/STRAW A UA APPEARANCE (test code = CLOUDY CLEAR A APPU) UA GLUCOSE DIPSTICK (test code 1+ NEGATIVE A = DGLUU) UA BILIRUBIN DIPSTICK (test NEGATIVE NEGATIVE code = BILU) UA KETONE DIPSTICK (test code = TRACE NEGATIVE A KETU) UA SPECIFIC GRAVITY (test code 1.028 1.005-1.030 N = SGU) UA BLOOD DIPSTICK (test code = 2+ NEGATIVE A REY) UA PH DIPSTICK (test code = 5.0 5.0-7.0 N JANINE) UA PROTEIN DIPSTICK (test code 3+ NEGATIVE A = PROU) UA UROBILINIOGEN DIPSTICK (test 0.2 mg/dL 0.2-1.0 code = URO) UA NITRITE DIPSTICK (test code NEGATIVE NEGATIVE = KELLIE) UA LEUKOCYTE ESTERASE DIPSTICK 3+ NEGATIVE A (test code = LEUU) UA WBC (test code = WBCU) >50 WBC/HPF 0-3 A UA RBC (test code = RBCU) 21-50 RBC/HPF 0-3 UA WBC NO REFLEX (test code = >50 WBC/HPF 0-3 A WBCUCL) UA BACTERIA (test code = BACU) 1+ /HPF NONE SEEN A UA SQUAMOUS CELLS (test code = 36-50 /HPF NONE SEEN A SQU) UA MUCUS (test code = MUCU) TRACE /LPF NONE SEEN Indication for culture: Gross HematuriaSpecimen Description: CLEAN CATCHGLUCOSE [id number] 12:14:00 Test Item Value Reference Range Interpretation Comments GLUCOSE BEDSIDE (test 147 MG/DL 70-110 H Perfor med by certified code = GLUBED) 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[facility] THROMBOPLASTIN TIME [id number] 11:46:00 Test Item Value Reference Range Interpretation Comments THROMBOPLASTIN TIME 72.0 Seconds 25.0-39.5 H Therape utic Range: PARTIAL (test code = 50.4 - 88.3 Seconds PTT) Effective 10/22/2018 GLUCOSE [id number] 06:01:00 Test Item Value Reference Range Interpretation Comments GLUCOSE BEDSIDE (test 246 MG/DL 70-110 H Perfor med by certified code = GLUBED) 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[facility] THROMBOPLASTIN TIME [id number] 05:17:00 Test Item Value Reference Range Interpretation Comments THROMBOPLASTIN TIME 53.5 Seconds 25.0-39.5 H Therape utic Range: PARTIAL (test code = 50.4 - 88.3 Seconds PTT) Effective 10/22/2018 CBC W/AUTO [id number] 04:16:00 Test Item Value Reference Range Interpretation Comments WHITE BLOOD CELL (test code = 12.1 x10 3/uL 4.5-11.0 H WBC) RED BLOOD CELL (test code = 2.85 x10 6/uL 3.54-5.02 L RBC) HEMOGLOBIN (test code = HGB) 9.1 g/dL 11.0-15.0 L HEMATOCRIT (test code = HCT) 29.0 % 33.0-45.0 L MEAN CELL VOLUME (test code = 101.8 fL 81.0-99.0 H MCV) MEAN CELL HGB (test code = 31.9 pg 27.0-33.0 N MCH) MEAN CELL HGB CONCETRATION 31.4 g/dL 33.0-37.0 L (test code = MCHC) RED CELL DISTRIBUTION WIDTH CV 17.0 % 11.5-14.5 H (test code = RDW) RED CELL DISTRIBUTION WIDTH SD 61.1 fL 37.0-54.0 H (test code = RDW-SD) PLATELET COUNT (test code = 136 x10 3/uL 150-400 L PLT) MEAN PLATELET VOLUME (test 9.5 fL 7.0-9.0 H code = MPV) NEUTROPHIL % (test code = NT%) 83.6 % 56.0-77.0 H IMMATURE GRANULOCYTE % (test 0.4 % 0.0-2.0 N code = IG%) LYMPHOCYTE % (test code = LY%) 5.3 % 14.0-32.0 L MONOCYTE % (test code = MO%) 8.4 % 4.8-9.0 N EOSINOPHIL % (test code = EO%) 2.1 % 0.3-3.7 N BASOPHIL % (test code = BA%) 0.2 % 0.0-2.0 N NUCLEATED RBC % (test code = 0.0 % 0-0 N NRBC%) NEUTROPHIL # (test code = NT#) 10.10 x10 3/uL 2.0-7.6 H IMMATURE GRANULOCYTE # (test 0.05 x10 3/uL 0.00-0.03 H code = IG#) LYMPHOCYTE # (test code = LY#) 0.64 x10 3/uL 1.0-3.8 L MONOCYTE # (test code = MO#) 1.02 x10 3/uL 0.1-0.8 H EOSINOPHIL # (test code = EO#) 0.25 x10 3/uL 0.0-0.2 H BASOPHIL # (test code = BA#) 0.02 x10 3/uL 0.0-0.2 N NUCLEATED RBC # (test code = 0.00 x10 3/uL 0.0-0.1 N NRBC#) MANUAL DIFF REQUIRED (test NO code = MDIFF) COMMENTS: Daily while on Heparin- CT CHEST W/O [id number] 00:00:00 [facility] SHOSHANA HERNANDEZName: JENN MOTTA : 1955 Sex: F Name: JENN MOTTA [facility] [place] : 1955 Age/S: 67 / F [address] [place] [address] Blvd Unit #: [id number] Loc: [place] [address] Phys: Aleja Funk Acct: [id number] Dis Date: Status: ADM IN PHONE #: [phone] Exam Date: 06/22/2022954 FAX #: [phone] Reason: Dyspnea, CAD EXAMS: CPT CODE: [id number] CT CHEST W/O CONTRAST 09477 PROCEDURE INFORMATION: Exam: CT Chest Without Contrast;Diagnostic Exam date and time: 06/22/2022 9:53 AM Age: 67 years old Clinical indication: Other: Dyspnea, cad TECHNIQUE: Imaging protocol: Diagnostic computed tomography of the chest without contrast. Radiation optimization: All CT scans at this facility use at least one of these dose optimization techniques: automated exposure control; mA and/or kV adjustment per patient size (includes targeted examswhere dose is matched to clinical indication); or iterative reconstruction. COMPARISON: CT CHEST W/OCONTRAST 06/13/2022 10:08 AM FINDINGS: Tubes, catheters and devices: A left internal jugular dialysis catheter is in place. Lungs: There are patchy ground-glass opacities throughout the lungs, not significantly changed compared to prior study. The lung bases are atelectatic. Pleural spaces: There is anew small left pleural effusion. The small right pleural effusion is unchanged. Heart: There is a small pericardial effusion, slightly increased in size compared to prior study. Coronary arteries: Coronary artery calcifications. Lymph nodes: Unremarkable. No enlarged lymph nodes. Vasculature: Diffuse vascular calcifications. Gallbladder and bile ducts: There has been a cholecystectomy. Kidneys and ureters: The left kidney is atrophic. Intraperitoneal space: There is a small amount of ascites in the visualized abdomen. Bones/joints: The patient is status post lower lumbar spinal fusion. The spine demonstrates moderate degenerative changes at multiple levels. There are diffuse enthesopathic changesconsistent with benign diffuse idiopathic skeletal hyperostosis (DISH). Soft tissues: There is diffuse body wall edema. IMPRESSION: 1. There is a new small left pleural effusion. The small right pleural effusion is unchanged. 2. There are patchy ground-glass opacities throughout the lungs, not significantly changed compared to prior study. This is a nonspecific finding and may represent pulmonary edema versus an infectious or inflammatory process. 3. There is diffuse body wall edema. PAGE 1 Signed Report (CONTINUED) Name: JENN MOTTA [facility] : 1955 Age/S: 67 / F [address] [facility] Unit #: [id number] Loc: [place] [address] Phys: Aleja Funk Acct: [id number] Dis Date: Status: ADM IN PHONE #: [phone] Exam Date: 06/22/2022954 FAX #: [phone] Reason: Dyspnea, CAD EXAMS: CPT CODE: [id number] CT CHEST W/O CONTRAST 30151 (Continued) 4. There is a small peric ardial effusion, slightly increased in size compared to prior study. 5. There is a small amount of ascites in the visualized abdomen. at 0904 Reported and signed by: Jim Uriostegui M.D. CC: Delmy Ashton MD; Jim Dhillon MD; Aleja OROZCO Technologist:RT Hailey(R)(CT) CTDI: DLP: Trnscb Date/Time: 06/23/2022 (903) [email or web address] Orig Print D/T: S: 06/23/2022 (903) PAGE 2 Signed ReportGLUCOSE [id number] 22:01:00 Test Item Value Reference Range Interpretation Comments GLUCOSE BEDSIDE (test 186 MG/DL 70-110 H Perfor med by certified code = GLUBED) 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[facility] THROMBOPLASTIN TIME [id number] 21:11:00 Test Item Value Reference Range Interpretation Comments THROMBOPLASTIN TIME 51.2 Seconds 25.0-39.5 H Therape utic Range: PARTIAL (test code = 50.4 - 88.3 Seconds PTT) Effective 10/22/2018 GLUCOSE [id number] 18:42:00 Test Item Value Reference Range Interpretation Comments GLUCOSE BEDSIDE (test 125 MG/DL 70-110 H Perfor med by certified code = GLUBED) 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[facility] THROMBOPLASTIN TIME [id number] 13:02:00 Test Item Value Reference Range Interpretation Comments THROMBOPLASTIN TIME 40.0 Seconds 25.0-39.5 H Therape utic Range: PARTIAL (test code = 50.4 - 88.3 Seconds PTT) Effective 10/22/2018 PTH INTACT [id number] 12:41:00 Test Item Value Reference Range Interpretation Comments PARATHYROID HORMONE INTACT (test 661.2 pg/mL 14.0-72.0 H code = PARAI) B-TYPE NATRIURETIC [id number] 12:23:00 Test Item Value Reference Range Interpretation Comments B-TYPE NATRIURETIC PEPTIDE (test 557.0 PG/ML 0-100 H code = BNP) PROTHROMBIN [id number] 12:06:00 Test Item Value Reference Range Interpretation Comments PROTHROMBIN TIME 14.9 SECONDS 9.3-12.9 H PATIENT (test code = PTP) INTERNATIONAL NORMAL 1.3 0.8-1.2 H TARGET INR BY RATIO (test code = INDICATIO N Indication INR) INR1. Prophylax is of venous thrombos is 2.0 - 3.0 (orthoped ic surgery), Proph ylaxis of venous throm bosis (other than hig h-risk surgery), Treat ment of Deep Vein Thrombosis/Pulm onary Embolism, Preve ntion of systemic emb olism - Tissue heart va lves, Acute Myocardia l Infarction (to prevent systemic emboli sm), Valvular heart disease, Atrial Fibrillation, Bileaflet mecha nical valve in aortic position.2. Mec hanical prosthetic valv es (high risk), 2. 5 - 3.5 Presence of Lup us Anticoagulant o r Antiphospholipi d Antibodies, Pre vention of systemic emb olism - Acute Myocardia l Infarction (to prevent recurrent infar ct). BASIC METABOLIC [id number] 12:04:00 Test Item Value Reference Range Interpretation Comments SODIUM (test code = 132 mEq/L 134-147 L NA) POTASSIUM (test code 4.6 mEq/L 3.4-5.0 N = K) CHLORIDE (test code 91 mEq/L 100-108 L = CL) CARBON DIOXIDE (test 20 mEq/l 21-33 L code = CO2) ANION GAP (test code 26 0-20 H = GAP) GLUCOSE (test code = 270 mg/dL 70-110 H GLU) BLOOD UREA NITROGEN 67 mg/dL 7-18 H (test code = BUN) GLOMERULAR 6.0 80-90 L The Glomerular FILTRATION RATE Filtration R ate is a (test code = GFR) calculated parameterbased on serum Creatinine, pat ient age and sex. GFR va luesless than 60 mL/min/ 1.73 square meters a re indicative ofCh ronic Kidney Disease. Values less than 15 mL/min/1.73squa re meters indicate Kidney failure. The calculation forGFR is based on the CKD-EPI (2020) calculat ion. This formulais race indifferent and is the recommended for bhumika for GFRby the Natio nal Kidney Foundati on for Adults.The GFR will not calculate if th e sex is unknown or if thepatient's ag e is <18 years. CREATININE (test 7.0 mg/dL 0.6-1.3 H code = CREAT) CALCIUM (test code = 9.4 mg/dL 8.0-10.5 N CA) CBC W/AUTO [id number] 11:56:00 Test Item Value Reference Range Interpretation Comments WHITE BLOOD CELL (test code = 13.3 x10 3/uL 4.5-11.0 H WBC) RED BLOOD CELL (test code = 2.99 x10 6/uL 3.54-5.02 L RBC) HEMOGLOBIN (test code = HGB) 9.5 g/dL 11.0-15.0 L HEMATOCRIT (test code = HCT) 30.0 % 33.0-45.0 L MEAN CELL VOLUME (test code = 100.3 fL 81.0-99.0 H MCV) MEAN CELL HGB (test code = 31.8 pg 27.0-33.0 N MCH) MEAN CELL HGB CONCETRATION 31.7 g/dL 33.0-37.0 L (test code = MCHC) RED CELL DISTRIBUTION WIDTH CV 16.8 % 11.5-14.5 H (test code = RDW) RED CELL DISTRIBUTION WIDTH SD 59.7 fL 37.0-54.0 H (test code = RDW-SD) PLATELET COUNT (test code = 159 x10 3/uL 150-400 N PLT) MEAN PLATELET VOLUME (test 9.7 fL 7.0-9.0 H code = MPV) NEUTROPHIL % (test code = NT%) 86.4 % 56.0-77.0 H IMMATURE GRANULOCYTE % (test 0.5 % 0.0-2.0 N code = IG%) LYMPHOCYTE % (test code = LY%) 4.4 % 14.0-32.0 L MONOCYTE % (test code = MO%) 6.8 % 4.8-9.0 N EOSINOPHIL % (test code = EO%) 1.7 % 0.3-3.7 N BASOPHIL % (test code = BA%) 0.2 % 0.0-2.0 N NUCLEATED RBC % (test code = 0.0 % 0-0 N NRBC%) NEUTROPHIL # (test code = NT#) 11.50 x10 3/uL 2.0-7.6 H IMMATURE GRANULOCYTE # (test 0.07 x10 3/uL 0.00-0.03 H code = IG#) LYMPHOCYTE # (test code = LY#) 0.58 x10 3/uL 1.0-3.8 L MONOCYTE # (test code = MO#) 0.90 x10 3/uL 0.1-0.8 H EOSINOPHIL # (test code = EO#) 0.22 x10 3/uL 0.0-0.2 H BASOPHIL # (test code = BA#) 0.02 x10 3/uL 0.0-0.2 N NUCLEATED RBC # (test code = 0.00 x10 3/uL 0.0-0.1 N NRBC#) MANUAL DIFF REQUIRED (test NO code = MDIFF) GLUCOSE [id number] 05:45:00 Test Item Value Reference Range Interpretation Comments GLUCOSE BEDSIDE (test 214 MG/DL 70-110 H Perfor med by certified code = GLUBED) 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[facility] THROMBOPLASTIN TIME [id number] 01:28:00 Test Item Value Reference Range Interpretation Comments THROMBOPLASTIN TIME 30.3 Seconds 25.0-39.5 N Therape utic Range: PARTIAL (test code = 50.4 - 88.3 Seconds PTT) Effective 10/22/2018 COMMENTS: DRAW PTT 6 HOURS AFTER INITIATION OF HEPARIN- DUP VEIN [id number] 00:[facility] 1955 Sex: F Name: JENN MOTTA [facility] : 1955 Age/S: 67 / F [address] [place] [address] Blvd Unit #: [id number] Loc: [place] [address] Phys: Aleja Funk Acct: [id number] Dis Date: Status: ADM IN PHONE #: [phone] Exam Date: 06/22/2022 1510 FAX #: [phone] Reason: Vein mapping for CABGEXAMS: CPT CODE: [id number] [facility] VEIN YEIMI [address] PROCEDURE INFORMATION: Exam: US Duplex Lower Extremity Veins; Vein mapping Exam date and time: 06/22/2022 10:54 AM Age: 67 years old Clinical indication: Screening exam; Pre op; Additional info: Vein mapping for cabg TECHNIQUE: Imaging protocol: Real-timeduplex ultrasound of the Lower Extremities with 2-D solis scale, color Doppler flow and spectral waveform analysis with image documentation. Complete exam focused on the bilateral lower extremity veins for vein mapping. COMPARISON: US DOP ART SGL LEVEL YEIMI 06/22/2022 10:42 AM FINDINGS: Right superficial veins: Normal Doppler waveforms. Normal compressibility. Greater saphenous vein is patent. Right greater saphenous vein-upper thigh: 4.9 mm Right greater saphenous vein-mid thigh: 6.7 mm Right greatersaphenous vein-lower thigh: 5.6 mm Right greater saphenous vein- upper le.9 mm Right greater saphenous vein-mid le.4 mm Right greater saphenous vein-lower le mm Left superficial veins: Normal Doppler waveforms. Normal compressibility. Greater saphenous vein is patent. Left greater saphenous vein-upper thigh: 5.2 mm Left greater saphenous vein-mid thigh: 3.9 mm Left greater saphenous vein-lower thigh: 4.1 mm Left greater saphenous vein-upper le mm Left greater saphenous vein-mid le.5 mm Left greater saphenous vein-lower le.8 mm Soft tissues: Unremarkable. IMPRESSION: Greater saphenous vein is patent. Vein mapping as described. at 1730 Reported and signed by: Glenn Obando M.D. CC: Delmy Ashton MD; Jim Dhillon MD; Aleja OROZCO Technologist: Monty Thomas Trnscb Date/Time: 06/22/2022 (1729) [email or web address] Orig Print D/T: S: 06/22/2022 (1729) Probe: PAGE 1 Signed Report- DOP ART [facility] LEVEL [id number] 00:00:00 [facility] SHOSHANA HERNANDEZName: HUBERT MOTTACA [place] : 1955 Sex: F Name: GRAEME MOTTAECCA Walter [facility] [place] : 1955 Age/S: 67 / F [address] [place], [place] [address]vd Unit #: [id number] Loc: [place] [address] Phys: Aleja Funk Acct: [id number] Dis Date: Status: ADM IN PHONE #: [phone] Exam Date: 06/22/2022 150 FAX #: [phone] Reason: PVD EXAMS: CPT CODE: [id number] DOP ART SGL LEVEL YEIMI 24882 PROCEDURE INFORMATION: Exam: US Duplex Lower Extremity Arteries Exam date and time: 06/22/2022 10:42 AM Age: 67 years old Clinical indication: Condition or disease; Peripheral vascular disease; Additional info: Pvd TECHNIQUE: Imaging protocol: Real-time ultrasound scan of the arteries of the bilateral lower extremities with 2-D solis scale, color Doppler flow and spe ctral waveform analysis. Images documented and saved. COMPARISON: No relevant prior studies available. FINDINGS: Right common femoral artery: No occlusion or significant stenosis. Normal waveform. Right superficial femoral artery: No occlusion or significant stenosis. Normal waveform. Right popliteal artery: No occlusion or significant stenosis. Normal waveform. Right calf/foot arteries: The right posterior tibialis artery demonstrates areas of occlusion versus significant stenosis. The dorsalis pedis arteries patent. Left common femoral artery: No occlusion or significant stenosis. Normal waveform. Left superficial femoral artery: No occlusion or significant stenosis. Normal waveform. Left popliteal artery: No occlusion or significant stenosis. Normal waveform. Left calf/foot arteries: Monophasic waveforms in the tibial arteries. IMPRESSION: 1. The ankle brachial indices cannot be calculated. 2. Severe peripheral arterial disease in the right lower extremity with occlusion versus significant stenosis of the right posterior tibialis artery. 3. Severe peripheral arterial disease in the left lower extremity with monophasic waveforms in the tibial arteries. at 1655 Reported and signed by: Jim Uriostegui M.D. PAGE 1 Signed Report (CONTINUED) Name: JENN MOTTA [facility] : 1955 Age/S: 67 / F [address] [place], [place] [address]vd Unit #: [id number] Loc: [place] [address] Phys: Aleja Funk Acct: [id number] Date: Status: ADM IN PHONE #: [phone] Exam Date: 06/22/2022 1509 FAX #: [phone] Reason: PVD EXAMS: CPT CODE: [id number] DOP ART SGL LEVEL YEIMI 15389 (Continued) CC: Delmy Ashton MD; Jim Dhillon MD; Aleja OROZCO Technologist: Monty Thomas Trnnjb Date/Time: 06/22/2022 (1654) [email or web address] Orig Print D/T: S: 06/22/2022 (1654) Probe: PAGE 2 Signed Report- DUP EXTRACRANIAL [id number] 00:00:00 [facility] 1955 Sex: F Name: JENN MOTTA [facility] : 1955 Age/S: 67 / F [address] [place] [address] Unit #: [id number] Loc: [place] [address] Phys: Aleja Funk Acct: [id number] Dis Date: Status: ADM IN PHONE #: [phone] Exam Date: 06/22/2022 1509 FAX #: [phone] Reason: CABG workup EXAMS: CPTCODE: [id number] DUP EXTRACRANIAL YEIMI 01752 PROCEDURE INFORMATION: Exam: US Duplex Bilateral Extracranial Arteries, Carotid Arteries Exam date and time: 06/22/2022 10:32 AM Age: 67 years old Clinical indication: Screening exam; Patient HX: Pre op; Additional info: Cabg workup TECHNIQUE: Imaging protocol: Real-time Duplex ultrasound scan of the bilateral carotid and vertebral arteries combining solis scale, color Doppler and spectral waveform analysis. Bilateral exam. Exam focused on the carotid arteries. COMPARISON: CT CHEST W/O CONTRAST 06/22/2022 9:53 AM FINDINGS: Right common carotid artery: Plaque formation. No occlusion or stenosis. Waveforms are normal. Right internal carotid artery: Plaque formation. No occlusion or stenosis. Waveforms are normal. Right ICA/CCA ratio: Within normal limits. Right external carotid artery: No stenosis in the origin. Right vertebral artery: Unremarkable. Antegrade flow. Left common carotid artery: Plaque formation. No occlusion or stenosis. Waveforms are normal. Left internal carotid artery: Plaque formation. No occlusion or stenosis. Waveforms are normal. Left ICA/CCA ratio: Within normal limits. Left external carotid artery: No stenosis in the origin. Leftvertebral artery: Unremarkable. Antegrade flow. IMPRESSION: No carotid arterial stenosis. REFERENCES: SRU CRITERIA. The degree of internal carotid artery stenosis is based on criteria defined by the Society of Radiologists in Ultrasound (SRU). Normal is no stenosis. Mild is less than 50% stenosis. Moderate is 50-69% stenosis. Severe is greater than 69% stenosis to near occlusion. Near occlusion is a markedly narrowed lumen. Total occlusion is no detectable patent lumen. at 1807 Reported and signed by: Paramjit Villar M.D. PAGE 1 Signed Report (CONTINUED) Name: JENN MOTTA [facility] : 1955 Age/S: 67 / F [address] [place] [address] Unit #: [id number] Loc: [place] [address] Phys: Aleja Funk Acct: [id number] Dis Date: Status: ADM IN PHONE #: [phone] Exam Date: 06/22/2022 8078 FAX #: [phone] Reason: CABG workup EXAMS: CPT CODE: [id number] DUP EXTRACRANIAL YEIMI 19354 (Continued) CC: Delmy Ashton MD; Jim Dhillon MD; Aleja OROZCO Technologist: Monty Thomas Trnnjb Date/Time: 06/22/2022 (7208) [email or web address] Orig Print D/T: S: 06/22/2022 (1254) Probe: PAGE 2 Signed ReportGLUCOSE BEDSIDE 2022-06-21 20:43:00 Test Item Value Reference Range Interpretation Comments GLUCOSE BEDSIDE (test 226 MG/DL 70-110 H Perfor med by certified code = GLUBED) 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[facility] CBC W/AUTO [id number] 20:20:00 Test Item Value Reference Range Interpretation Comments WHITE BLOOD CELL (test code = 13.0 x10 3/uL 4.5-11.0 H WBC) RED BLOOD CELL (test code = 3.15 x10 6/uL 3.54-5.02 L RBC) HEMOGLOBIN (test code = HGB) 9.8 g/dL 11.0-15.0 L HEMATOCRIT (test code = HCT) 31.4 % 33.0-45.0 L MEAN CELL VOLUME (test code = 99.7 fL 81.0-99.0 H MCV) MEAN CELL HGB (test code = 31.1 pg 27.0-33.0 N MCH) MEAN CELL HGB CONCETRATION 31.2 g/dL 33.0-37.0 L (test code = MCHC) RED CELL DISTRIBUTION WIDTH CV 17.2 % 11.5-14.5 H (test code = RDW) RED CELL DISTRIBUTION WIDTH SD 59.9 fL 37.0-54.0 H (test code = RDW-SD) PLATELET COUNT (test code = 173 x10 3/uL 150-400 N PLT) MEAN PLATELET VOLUME (test 9.8 fL 7.0-9.0 H code = MPV) NEUTROPHIL % (test code = NT%) 81.2 % 56.0-77.0 H IMMATURE GRANULOCYTE % (test 0.3 % 0.0-2.0 N code = IG%) LYMPHOCYTE % (test code = LY%) 7.8 % 14.0-32.0 L MONOCYTE % (test code = MO%) 9.0 % 4.8-9.0 N EOSINOPHIL % (test code = EO%) 1.5 % 0.3-3.7 N BASOPHIL % (test code = BA%) 0.2 % 0.0-2.0 N NUCLEATED RBC % (test code = 0.0 % 0-0 N NRBC%) NEUTROPHIL # (test code = NT#) 10.58 x10 3/uL 2.0-7.6 H IMMATURE GRANULOCYTE # (test 0.04 x10 3/uL 0.00-0.03 H code = IG#) LYMPHOCYTE # (test code = LY#) 1.02 x10 3/uL 1.0-3.8 N MONOCYTE # (test code = MO#) 1.17 x10 3/uL 0.1-0.8 H EOSINOPHIL # (test code = EO#) 0.19 x10 3/uL 0.0-0.2 N BASOPHIL # (test code = BA#) 0.03 x10 3/uL 0.0-0.2 N NUCLEATED RBC # (test code = 0.00 x10 3/uL 0.0-0.1 N NRBC#) MANUAL DIFF REQUIRED (test NO code = MDIFF) COMMENTS: IF NOT ALREADY DONE WITHIN LAST 24 HOURSGLUCOSE [id number] 18:45:00 Test Item Value Reference Range Interpretation Comments GLUCOSE BEDSIDE (test 168 MG/DL 70-110 H Perfor med by certified code = GLUBED) 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 Prophylax is of venous thrombos is 2.0 - 3.0 (orthoped ic surgery), Proph ylaxis of venous throm bosis (other than hig h-risk surgery), Treat ment of Deep Vein Thrombosis/Pulm onary Embolism, Preve ntion of systemic emb olism - Tissue heart va lves, Acute Myocardia l Infarction (to prevent systemic emboli sm), Valvular heart disease, Atrial Fibrillation, Bileaflet mecha nical valve in aortic position.2. Mec hanical prosthetic valv es (high risk), 2. 5 - 3.5 Presence of Lup us Anticoagulant o r Antiphospholipi d Antibodies, Pre vention of systemic emb olism - Acute Myocardia l Infarction (to prevent recurrent infar ct). COMMENTS: IF NOT ALREADY DONE WITHIN LAST 24 HOURSTHROMBOPLASTIN TIME PARTIAL 2022-06-21 18:42:00 Test Item Value Reference Range Interpretation Comments THROMBOPLASTIN TIME 32.1 Seconds 25.0-39.5 N Therape utic Range: PARTIAL (test code = 50.4 - 88.3 Seconds PTT) Effective 10/22/2018 COMMENTS: IF NOT ALREADY DONE WITHIN LAST 24 HOURSCOMPREHENSIVE METABOLIC PANEL 2022-06-21 18:41:00 Test Item Value Reference Range Interpretation Comments SODIUM (test code = 133 mEq/L 134-147 L NA) POTASSIUM (test code 4.3 mEq/L 3.4-5.0 N = K) CHLORIDE (test code 90 mEq/L 100-108 L = CL) CARBON DIOXIDE (test 21 mEq/l 21-33 N code = CO2) ANION GAP (test code 26 0-20 H = GAP) GLUCOSE (test code = 181 mg/dL 70-110 H GLU) BLOOD UREA NITROGEN 55 mg/dL 7-18 H (test code = BUN) GLOMERULAR 6.8 80-90 L The Glomerular FILTRATION RATE Filtration R ate is a (test code = GFR) calculated parameterbased on serum Creatinin e, patient age and sex. GFR valuesless than 60 mL/min/1.73 squ are meters are saeid cative ofChronic Kidne y Disease. Values less than 15 mL/min/1.73squa re meters indicate Kidney failure. The calculation for GFR is based on the CK D-EPI (2020) calculat ion. This formulais race indifferent and is the recommended for bhumika for GFRby the N [facility] on for Adults.The GFR will not calculate i f the sex is unknown or if thepatient's ag e is <18 years. CREATININE (test 6.3 mg/dL 0.6-1.3 H code = CREAT) TOTAL PROTEIN (test 6.8 g/dL 6.4-8.2 N code = PROT) ALBUMIN (test code = 3.60 g/dL 3.4-5.0 N ALB) CALCIUM (test code = 9.9 mg/dL 8.0-10.5 N CA) BILIRUBIN TOTAL 0.70 mg/dL 0.0-1.0 N (test code = BILT) SGOT/AST (test code 43 IUnit/L 15-37 H = AST) SGPT/ALT (test code 214 IUnit/L 30-65 H = ALT) ALKALINE PHOSPHATASE 448 IUnit/L 20-125 H TOTAL (test code = ALKP) COMMENTS: [id number] 16:16:00 Test Item Value Reference Range Interpretation Comments POC glucose (test 89 mg/dL 65-99 Computed Tomography Technologist N desire: Rubin code = 55183-6) [employer] I D: [id number] able: RN Notified [facility]2022-10-19 16:16:00 Test Item Value Reference Range Interpretation Comments POC glucose (test 89 mg/dL 65-99 Computed Tomography Technologist N desire: Rubin code = 72887-2) [employer] I D: [id number] able: RN Notified [facility]2022-10-19 13:03:01 Test Item Value Reference Range Interpretation Comments POC sodium (test code = 140 mmol/L 815-270 0004-0) POC potassium (test code 3.9 mmol/L 3.5-5.0 = 6298-4) POC glucose (test code = 78 mg/dL 65-99 2339-0) POC creatinine (test 4.6 mg/dl 0.5-0.9 H Operato r Name: code = 94965-5) Marko kyle ID: [id number] POC hemoglobin (test 8.5 g/dL 12.0-16.0 L code = 718-7) POC hematocrit (test 25 % 37-47 L code = 4544-3) Lab Interpretation (test Abnormal code = 20589-0) [facility]2022-10-19 13:03:01 Test Item Value Reference Range Interpretation Comments POC sodium (test code = 140 mmol/L 734-834 8938-0) POC potassium (test code 3.9 mmol/L 3.5-5.0 = 6298-4) POC glucose (test code = 78 mg/dL 65-99 2339-0) POC creatinine (test 4.6 mg/dl 0.5-0.9 H Operato r Name: code = 59955-4) Marko kyle ID: [id number] POC hemoglobin (test 8.5 g/dL 12.0-16.0 L code = 718-7) POC hematocrit (test 25 % 37-47 L code = 4544-3) Lab Interpretation (test Abnormal code = 69295-9) [facility] [id number] 13:03:00 Test Item Value Reference Range Interpretation Comments Estimated GFR (test 9 mL/min/1.73 m2 A Caterg ory Units code = 61618-1) Interpretati onG1 >=90 Normal or highG 2 60-89 Mildly decrease dG3a 45-59 Mildly to moderately decr [id number] 30-44 Moderatel y to severely decrea sedG4 15-29 Severely decreasedG5 <15 Kidney failureThe eGFR was calculated usin g the Chronic Kidney Disease Epidemiology Collaboration ( CKD-EPI) equation. Interpretation is based on recommendati ons of the [facility] Disease Outcome s Quality Initiat hermes ([facility]-KDOQI) pub lished in 2013. Lab Interpretation Abnormal (test code = 37066-9) [facility] [id number] 13:03:00 Test Item Value Reference Range Interpretation Comments Estimated GFR (test mL/min/1.73 m2 A Caterg ory Units code = 38265-7) Interpretati onG1 >=90 Normal or highG 2 60-89 Mildly decrease dG3a 45-59 Mildly to moderately decr gunclV3k 30-44 Moderatel y to severely decrea sedG4 15-29 Severely decreasedG5 <15 Kidney failureThe eGFR was calculated usin g the Chronic Kidney Disease Epidemiology Collaboration ( CKD-EPI) equation. Interpretation is based on recommendati ons of the [facility] Disease Outcome s Quality Initiat hermes ([facility]-KDOQI) pub lished in 2013. Lab Interpretation Abnormal (test code = 58487-0) [facility] [id number] 19:03:18 Test Item Value Reference Range Interpretation Comments Case number (test code = [id number]) Surgical pathology See link below for report (test code = PDF Lab Report 2255) Result status (test code This is Final Report = [id number]) for [id number] [facility] [id number] 19:03:18 Test Item Value Reference Range Interpretation Comments Case number (test code = [id number]) Surgical pathology See link below for report (test code = PDF Lab Report 2259) Result status (test code This is Final Report = [id number]) for [id number] [facility] Pre/Post [id number] 10:49:53 Test Item Value Reference Range Interpretation Comments Ventricular rate (test 101 code = 253) Atrial rate (test code 101 = 255) PA interval (test code 160 = 266) QRSD interval (test 100 code = 260) QT interval (test code 372 = 264) QTC interval (test code 482 = 265) P axis 1 (test code = -10 267) QRS axis 1 (test code = 56 268) T wave axis (test code -60 = 270) EKG impression (test Sinus code = 273) tachycardia-Possible Inferior infarct , age undetermined-Abnormal ECG-In automated comparison with ECG of 11-MAY-2020 14:54,-Borderline criteria for Inferior infarct are now present-T wave inversion now evident in Inferior leads- [facility] Pre/Post [id number] 10:49:53 Test Item Value Reference Range Interpretation Comments Ventricular rate (test code = 253) Atrial rate (test code = 255) PA interval (test code = 266) QRSD interval [...] wave inversion now evident in Inferior leads- [facility] GLUCOSE (AUTOMATED)2020-10-14 12:45:50 Test Item Value Reference Range Interpretation Comments POCT GLU (test code = 1091640052) 255 mg/dL 70-110 H Lab Interpretation (test code = Abnormal 27135-7) [facility] [id number] 12:35:00 Test Item Value Reference Range Interpretation Comments POCT Glu (age>30days) (test code = 255 mg/dL 70-110 A 3342) Lab Interpretation (test code = Abnormal 93265-1) [facility] [Presence] in Respiratory specimen by JUANY with probe [id number] 01:15:19 Test Item Value Reference Range Interpretation Comments SARS-CoV-2 (COVID-19) RNA Not detected Not-Detected [Presence] in Respiratory specimen by JUANY with probe detection (test code = 87027-4) [facility] [id number] 12:03:00 Test Item Value Reference Range Interpretation Comments POCT Glu (age>30days) (test code = 142 mg/dL 70-110 A 3342) Lab Interpretation (test code = Abnormal 69227-3) [facility] RNA [Presence] in Respiratory specimen by JUANY with probe [id number] 18:03:16 Test Item Value Reference Range Interpretation Comments SARS-CoV-2 (COVID-19) RNA Not detected Not-Detected [Presence] in Respiratory specimen by JUANY with probe detection (test code = 58860-0) [facility]
[2022-08-08] MEDS ORDERED: FUROSEMIDE 100 MG/10 ML VIAL IV ONE (12:06)
[2022-08-08 12:09] LABS: Absolute Lymphocytes (CBC) 0.6 K/uL (0.7-4.9); Hematocrit 25.5 % (36.0-45.0); MCV 91.2 fL (80-100); RBC Red Blood Cell Count 2.79 M/uL (3.86-4.86)
[2022-08-08 12:12] LABS: Protime INR 1.2
[2022-08-08 12:24] LABS: Albumin 2.8 g/dL (3.4-5.0); Bilirubin Direct 0.2 mg/dL (0-0.2); Bilirubin Total 0.5 mg/dL (0.2-1.0); Potassium 4.1 mmol/L (3.5-5.1); Protein, Total 7.1 g/dL (6.4-8.2); Troponin High Sensitivity 41.8 pg/mL (<58.9)
--- NOTE | 2022-08-08 12:41 | RAD REPORT ---
EXAM DESCRIPTION: RAD - Chest Single View - 08/08/2022 12:17 pm CLINICAL HISTORY: DYSPNEA COMPARISON: Portable 06/14/2022 TECHNIQUE: AP portable chest image was obtained 08/08/2022 12:17 pm . FINDINGS: Lung volumes are low. Interstitial markings are prominent with additional minimal patchy a lveolar opacities in the left lung field. No one focal area of mass or consolidations seen. Heart siz e is upper normal. Central vasculature is prominent. Double-lumen dialysis catheter is in place on th e left. No pneumothorax is present. No large pleural effusion is present. No acute bony abnormality seen. No acute aortic findings suspected. IMPRESSION: Mild CHF/volume overload pattern.
[2022-08-08 12:45] LABS: SARS-COV-2 RT PCR NEGATIVE (NEGATIVE)
--- NOTE | 2022-08-08 12:53 | ER ---
Nurse's Notes [facility] Name: Meseret Gallego Age: 67 yrs Sex: Female : 1955 Arrival Date: 08/08/2022 Time: 11:34 Bed 24 Private MD: Diagnosis: Acute pulmonary edema;Hypoglycemia, unspecified;End stage renal disease Presentation: 08/08 11:34 Chief complaint: Marylou, RN reports pt was here for left heart cath, missed dialysis jl7 yesterday, bgl 44 and short of breath on arrival to skill [employer], on arrival to ED Dr. Sykes gave VO to Marylou to administer oral glucose. Coronavirus screen: At this time, the client does not indicate any symptoms associated with coronavirus-19. Ebola Screen: No symptoms or risks identified at this time. Risk Assessment: Do you want to hurt yourself or someone else? Patient reports no desire to harm self or others. Onset of symptoms was August 08, 2022. 11:34 Method Of Arrival: Other [facility] 11:34 Acuity: CHRISTOPHER 2 jl7 12:00 Initial Sepsis Screen: Does the patient meet any 2 criteria? RR > 20 per min. No. jl7 Patient's initial sepsis screen is negative. Does the patient have a suspected source of infection? No. Patient's initial sepsis screen is negative. Triage Assessment: 12:53 General: Appears distressed, uncomfortable, Behavior is cooperative, appropriate for jl7 age, anxious, restless. Pain: Denies pain. Neuro: Varela Agitation-Sedation Scale (RASS): +1 Restless Level of Consciousness is awake, alert, obeys commands, Oriented to person, place, time, situation. Cardiovascular: Patient's skin is warm and dry. Respiratory: Reports shortness of breath Airway is patent Respiratory effort is even, labored, using tripod position, Respiratory pattern is symmetrical, tachypnea Breath sounds are diminished bilaterally. Onset: The symptoms/episode began/occurred this morning, the patient has severe shortness of breath. Derm: Skin is pink, warm \T\ dry. Historical: - Allergies: 11:37 Codeine; jl7 11:37 Phenergan; jl7 11:37 Tape; jl7 - Home Meds: 11:59 Humalog U-100 Insulin 100 unit/mL Sub-Q crtg 50 unit twice a day [Active]; aspirin 325 iw mg Oral TbEC 1 tab once daily [Active]; atorvastatin 40 mg Oral tab 1 tab once daily [Active]; Brilinta 90 mg oral tab 1 tab 2 times per day [Active]; Vitamin D Oral daily [Active]; furosemide 80 mg Oral tab 1 tab once daily [Active]; metoprolol tartrate 12.5 mg Oral tab 2 times per day [Active]; midodrine 10 mg oral tab 1 tab 3 times per day [Active]; Protonix 40 mg Oral TbEC 1 tab once daily [Active]; sucralfate 1 gram Oral tab 1 tab 2 times per day [Active]; Wellbutrin XL 150 mg Oral Tb24 1 tab once daily [Active]; - PMHx: 11:37 Diabetes - IDDM; Dialysis; Hypercholesterolemia; Hypertension; Hypothyroidism; jl7 - Immunization history:: Adult Immunizations unknown. - Social history:: Smoking status: unknown. - Family history:: not pertinent. - Hospitalizations: : Patient was recently seen at. Screenin:36 [facility] ED Fall Risk Assessment (Adult) History of falling in the last 3 months, jl7 including since admission No falls in past 3 months (0 pts) Confusion or Disorientation No (0 pts) Intoxicated or Sedated No (0 pts) Impaired Gait No (0 pts) Mobility Assist Device Used No (0 pt) Altered Elimination No (0 pt) Score/Fall Risk Level 0 - 2 = Low Risk Oriented to surroundings, Maintained a safe environment. Abuse screen: Denies threats or abuse. Denies injuries from another. Nutritional screening: No deficits noted. Tuberculosis screening: No symptoms or risk factors identified. Assessment: 12:00 Reassessment: BGL 58, Dr. Sykes notified, VO for 200 mL D10 in water at bolus rate, pt jl7 medicated as ordered. 13:25 Reassessment: BGL 69, Dr. Sykes notified, VO to administer 100 mL dextrose in water IV jl7 and provide pt with food. Pt medicated as ordered and provided with applesauce and peanut butter. Will check BGL at 1400. 13:37 Reassessment: Pt provided with renal diet tray from cafeteria. jl7 15:00 Reassessment: Patient appears in no apparent distress at this time. Patient and/or jl7 family updated on plan of care and expected duration. Pain level reassessed. Patient is alert, oriented x 3, equal unlabored respirations, skin warm/dry/pink. Pain: Denies pain. Cardiovascular: Rhythm is regular. Respiratory: Airway is patent Respiratory effort is even, labored, using tripod position, Respiratory pattern is symmetrical, tachypnea Breath sounds are diminished bilaterally. 16:00 Reassessment: Patient appears in no apparent distress at this time. Patient and/or jl7 family updated on plan of care and expected duration. Pain level reassessed. Patient is alert, oriented x 3, equal unlabored respirations, skin warm/dry/pink. Patient states feeling better. Patient states symptoms have improved. Vital Signs: 12:06 BP 150 / 85; Pulse 86; Resp 28 S; Temp 97.9(O); Pulse Ox 97% on R/A; Pain 0/10; jl7 12:45 BP 125 / 78; Pulse 82; Resp 15; Pulse Ox 100% ; jl7 13:36 BP 146 / 68; Pulse 88; Resp 15; Pulse Ox 100% on 2 lpm NC; jl7 ED Course: 11:34 Patient arrived in ED. jl7 11:34 Marcel Sykes MD is Attending Physician. rn 11:37 Triage completed. jl7 11:37 Arm band placed on right wrist. jl7 11:37 Patient has correct armband on for positive identification. Placed in gown. Bed in low jl7 position. Call light in reach. Side rails up X2. Client placed on continuous cardiac and pulse oximetry monitoring. NIBP monitoring applied. 11:37 Warm blanket given. jl7 11:38 Gale Thapa RN is Primary Nurse. jl7 12:07 Initial lab(s) drawn, by ga, sent to lab. EKG done, by ED staff, reviewed by Marcel Sykes MD COVID swab sent to lab. IV is patent, is intact, with good blood return, Arrived to ED from laboratory phlebotomist with 22 G to right FA. 12:19 XRAY CXR (1 view) In Process Unspecified. EDMS 12:52 Michael Sykes MD is Hospitalizing Provider. rn 18:00 No provider procedures requiring assistance completed. Patient admitted, IV remains in jl7 place. intact, No redness/swelling at site. 19:22 Primary Nurse role handed off by Gale Thapa RN mw2 Administered Medications: 11:45 Drug: Dextrose 10 % in Water 200 ml Route: IV; Rate: bolus; Site: right forearm; jl7 13:10 Follow up: Response: No adverse reaction; IV Status: Completed infusion; IV Intake: jl7 200ml 12:06 Drug: Lasix (furosemide) 60 mg Route: IVP; Site: right forearm; jl7 13:26 Follow up: Response: No adverse reaction jl7 13:20 Drug: Dextrose 10 % in Water 100 ml Route: IV; Rate: bolus; Site: right forearm; jl7 13:36 Follow up: Response: No adverse reaction; IV Status: Completed infusion; IV Intake: jl7 100ml Medication: 12:00 VIS not applicable for this client. jl7 Intake: 13:10 IV: 200ml; Total: 200ml. jl7 13:36 IV: 100ml; Total: 300ml. jl7 Outcome: 12:53 Decision to Hospitalize by Provider. rn 18:00 Admitted to ER Hold. Please see [facility] for further documentation. jl7 18:00 Condition: stable 18:00 Discharge instructions given to patient, Instructed on the need for admit, Demonstrated understanding of instructions. 02 08:20 Patient left the ED. kl Signatures: Dispatcher [employer] EDMS Kim Billy RN RN kl Williams, Irene, RN RN iw Nieto, Roman, MD MD rn Leal, Jahala, RN RN jl7 Gatti, MyKena mw2 Corrections: (The following items were deleted from the chart) 08/08 12:16 12:02 BP 154 / 83; Pulse 84bpm; Resp 18bpm; Spontaneous; alix thomson
--- NOTE | 2022-08-08 12:53 | EDPHYS ---
Physician Documentation [facility] Name: Meseret Gallego Age: 67 yrs Sex: Female : 1955 Arrival Date: 08/08/2022 Time: 11:34 Bed 24 Private MD: ED Physician Marcel Sykes HPI: 08/08 11:38 This 67 yrs old Female presents to ER via Other with complaints of Shortness Of Breath. rn 11:38 This 67 yrs old Female presents to ER via Other with complaints of sob, low blood sugar.rn 11:38 The patient has shortness of breath at rest. Onset: The symptoms/episode began/occurred rn yesterday. Duration: The symptoms are continuous. The patient's shortness of breath is aggravated by exertion, light activity, supine position, talking, walking, is alleviated by nothing. Associated signs and symptoms: Pertinent negatives: chest pain, non-productive cough, productive cough, diaphoresis, dizziness, fever, hemoptysis, loss of consciousness, vomiting. Severity of symptoms: At their worst the symptoms were moderate in the emergency department the symptoms are unchanged. The patient has experienced similar episodes in the past. The patient has been recently seen by a physician:. Pt was in [employer] about to get left heart cath for recent MO, was noted to have low blood sugar in 40s, no glucose given, and was noted to be in respiratory distress so brought to ER without intervention. Pt states missed last dialysis, last dialysis Sunday, and reports sob worse with exertion. For glucose, patient took insulin last night and was NPO since then. NO seizure activity. No chest pain. No fever. . Historical: - Allergies: 11:37 Codeine; jl7 11:37 Phenergan; jl7 11:37 Tape; jl7 - Home Meds: 11:59 Humalog U-100 Insulin 100 unit/mL Sub-Q crtg 50 unit twice a day [Active]; aspirin 325 iw mg Oral TbEC 1 tab once daily [Active]; atorvastatin 40 mg Oral tab 1 tab once daily [Active]; Brilinta 90 mg oral tab 1 tab 2 times per day [Active]; Vitamin D Oral daily [Active]; furosemide 80 mg Oral tab 1 tab once daily [Active]; metoprolol tartrate 12.5 mg Oral tab 2 times per day [Active]; midodrine 10 mg oral tab 1 tab 3 times per day [Active]; Protonix 40 mg Oral TbEC 1 tab once daily [Active]; sucralfate 1 gram Oral tab 1 tab 2 times per day [Active]; Wellbutrin XL 150 mg Oral Tb24 1 tab once daily [Active]; - PMHx: 11:37 Diabetes - IDDM; Dialysis; Hypercholesterolemia; Hypertension; Hypothyroidism; jl7 - Immunization history:: Adult Immunizations unknown. - Social history:: Smoking status: unknown. - Family history:: not pertinent. - Hospitalizations: : Patient was recently seen at. ROS: 11:38 Constitutional: Negative for fever, chills, and weight loss, Eyes: Negative for injury, rn pain, redness, and discharge, Neck: Negative for injury, pain, and swelling, Cardiovascular: + edema Respiratory: + sob Abdomen/GI: Negative for abdominal pain, nausea, vomiting, diarrhea, and constipation, MS/Extremity: Negative for injury and deformity, Skin: Negative for injury, rash, and discoloration, Neuro: Negative for headache, weakness, numbness, tingling, and seizure. Exam: 11:38 Constitutional: + moderate respiratory distress, awake and alert. Head/Face: rn Normocephalic, atraumatic. Cardiovascular: Regular rate and rhythm. No pulse deficits. Respiratory: + moderate tachypnea, no retractions, + coarse bilateral crackles with wheezing, no stridor. Abdomen/GI: Soft, non-tender Skin: Warm, dry MS/ Extremity: Pulses equal, no cyanosis. + lower ext pitting edema Neuro: Awake and alert, GCS 15, oriented to person, place, time, and situation. 14:33 ECG was reviewed by the Attending Physician. rn Vital Signs: 12:06 BP 150 / 85; Pulse 86; Resp 28 S; Temp 97.9(O); Pulse Ox 97% on R/A; Pain 0/10; jl7 12:45 BP 125 / 78; Pulse 82; Resp 15; Pulse Ox 100% ; jl7 13:36 BP 146 / 68; Pulse 88; Resp 15; Pulse Ox 100% on 2 lpm NC; jl7 MDM: 11:34 Patient medically screened. rn 12:51 Differential diagnosis: Anxiety Reaction CHF exacerbation, pneumonia, Pneumothorax rn pulmonary edema, hypoglycemia. Data reviewed: vital signs, nurses notes, lab test result(s), EKG, radiologic studies, plain films, and as a result, I will admit patient. Consideration of Admission/Observation Escalation of care including admission/observation considered. Management of patient was discussed with the following: Hospitalist: Discussed management with Dr. Sykes on hospitalist end and will admit for further care. . Independent interpretation of the following test(s) in the Emergency Department EKG: See my EKG interpretation above X-Ray: My interpretation is CXR shows pulmonary edema. Historians other than the Patient: lab[employer] staff gave events leading up to ER presentation. Care significantly affected by the following chronic conditions: Chronic Kidney Disease. Care significantly affected by the following chronic conditions: Diabetes. Counseling: I had a detailed discussion with the patient and/or guardian regarding: the historical points, exam findings, and any diagnostic results supporting the discharge/admit diagnosis, lab results. Counseling: I had a detailed discussion with the patient and/or guardian regarding: radiology results, the need for further work-up and treatment in the hospital. Response to treatment: the patient's symptoms have mildly improved after treatment, and as a result, I will admit patient. 08/08 11:35 Order name: BMP; Complete Time: 12:45 rn 08/08 11:35 Order name: CBC with Diff; Complete Time: 12:45 rn 08/08 11:35 Order name: Hepatic Function; Complete Time: 12:45 rn 08/08 11:35 Order name: NT PRO-BNP; Complete Time: 12:45 rn 08/08 11:35 Order name: PT-INR; Complete Time: 12:45 rn 08/08 11:35 Order name: Ptt, Activated; Complete Time: 12:45 rn 08/08 11:35 Order name: Troponin HS; Complete Time: 12:45 rn 08/08 11:35 Order name: COVID-19/FLU A+B rn 08/08 12:04 Order name: Glucose, Ancillary Testing; Complete Time: 12:45 EDSC 08/08 12:28 Order name: Glucose, Ancillary Testing; Complete Time: 12:45 EDSC 08/08 13:25 Order name: Glucose, Ancillary Testing EDSC 08/08 13:27 Order name: Glucose, Ancillary Testing EDSC 08/08 16:24 Order name: Glucose, Ancillary Testing EDSC 08/08 16:51 Order name: Phosphorus EDMS 08/08 11:35 Order name: XRAY CXR (1 view); Complete Time: 12:45 rn 08/08 11:35 Order name: EKG; Complete Time: 11:36 rn 08/08 11:35 Order name: Cardiac monitoring; Complete Time: 12:06 rn 08/08 11:35 Order name: EKG - Nurse/Tech; Complete Time: 12:06 rn 08/08 11:35 Order name: IV Saline Lock; Complete Time: 12:06 rn 08/08 11:35 Order name: Labs collected and sent; Complete Time: 12:06 rn 08/08 11:35 Order name: O2 Per Protocol; Complete Time: 12:06 rn 08/08 13:13 Order name: Diet Heart Healthy; Complete Time: 13:14 bd 08/08 16:51 Order name: Magnesium EDMS 08/08 21:47 Order name: Glucose, Ancillary Testing EDMS 08/09 02:38 Order name: CBC with Automated Diff EDMS 08/09 02:46 Order name: Basic Metabolic Panel EDMS 08/09 02:46 Order name: NT PRO-BNP EDMS 08/08 11:35 Order name: O2 Sat Monitoring; Complete Time: 12:06 rn EC:33 Rate is 83 beats/min. Rhythm is regular. QRS [place] is Normal. NE interval is normal. QRS rn interval is normal. QT interval is normal. No Q waves. T waves are Normal. No ST changes noted. Clinical impression: NSR w/ Non-specific ST/T Changes. Interpreted by me. Reviewed by me. Administered Medications: 11:45 Drug: Dextrose 10 % in Water 200 ml Route: IV; Rate: bolus; Site: right forearm; jl7 13:10 Follow up: Response: No adverse reaction; IV Status: Completed infusion; IV Intake: jl7 200ml 12:06 Drug: Lasix (furosemide) 60 mg Route: IVP; Site: right forearm; jl7 13:26 Follow up: Response: No adverse reaction jl7 13:20 Drug: Dextrose 10 % in Water 100 ml Route: IV; Rate: bolus; Site: right forearm; jl7 13:36 Follow up: Response: No adverse reaction; IV Status: Completed infusion; IV Intake: jl7 100ml Disposition Summary: 08/08/22 12:53 Hospitalization Ordered Hospitalization Status: Observation rn Provider: Michael Sykes rn Condition: Stable rn Problem: new rn Symptoms: have improved rn Bed/Room Type: Standard rn Location: Telemetry/MedSurg (observation)(08/09/22 06:14) Room Assignment: 424(08/09/22 06:14) Diagnosis - Acute pulmonary edema rn - Hypoglycemia, unspecified rn - End stage renal disease rn Forms: - Medication Reconciliation Form rn - SBAR form rn Signatures: Dispatcher [employer] EDMS Naheed Ibarra RN RN mw Williams, Irene RN PERRI Marcel Sykes MD MD rn Leal, Jahala, RN RN jl7 Corrections: (The following items were deleted from the chart) 17:11 12:53 Telemetry/MedSurg (observation) rn jl7 17:11 12:53 rn lucina 08/09 06:14 08/08 17:11 [facility] ER HOLD jl7 08/09 06:14 08/08 17:11 ERHOLD- jlKeely
[2022-08-08] MEDS ORDERED: DIPHENHYDRAMINE 25 MG TAB/CAP PO PRN (15:33)
[2022-08-08] MEDS ORDERED: ACETAMINOPHEN 325 MG TABLET PO PRN (15:34)
[2022-08-08] MEDS ORDERED: GLUCAGON 1 MG/VIAL IM PRN (15:45)
--- NOTE | 2022-08-08 15:49 | P.HP ---
Certification for Inpatient Patient admitted to: Observation With expected LOS: <2 Midnights Patient will require the following post-hospital care: None Practitioner: I am a practitioner with admitting privileges, knowledge of patient current condition, hospital course, and medical plan of care. Services: Services provided to patient in accordance with Admission requirements found in Title 42 Section 412.3 of the Code of Federal Regulations Patient History Date of Service: 08/08/22 Reason for admission: Shortness of breath and hypoglycemia. History of Present Illness: Patient is a 67-year-old female with a past medical history significant for ESRD, DM 2, HLD, hypertension, hypothyroidism, morbid obesity who presents with complaint of shortness of breath and hypoglycemia. Patient reported that she could not go to dialysis yesterday due to diarrhea. She reported that she took Imodium and has not had any episode of diarrhea since yesterday. Patient was scheduled for a stent placement with her monotype machinist today and on getting to the Oil Well Logging Engineer patient became short of breath and her blood sugar was noted to be 44 Mg per DL. Patient was n.p.o. overnight and patient took her insulin regimen yesterday. Procedure was canceled and patient was sent to the ER. Patient reported associated signs and symptoms of bilateral lower extremity edema. Patient denies any other signs or symptoms. Symptoms are aggravated or relieved by nothing. Patient currently resting in bed at time of assessment. Allergies codeine Allergy (Intermediate, Verified 08/04/22 13:31) Itching promethazine [From Phenergan] Allergy (Intermediate, Verified 08/04/22 13:31) Itching adhesive tape Adverse Reaction (Verified 08/04/22 13:31) Itching/Hives/Rash Home Medications: Aspirin [Aspirin EC 325 MG] 325 mg PO BEDTIME 11/17/19 Atorvastatin Calcium [Lipitor] 20 mg PO BEDTIME 11/17/19 Insulin Glargine,Hum.rec.anlog [Lantus Solostar] 45 units SQ BID 11/17/19 Insulin Lispro [Humalog Kwikpen U-100] 30 units SQ TIDWM 11/17/19 Docusate Sodium [Stool Softener] 50 mg PO DAILY 09/03/20 Furosemide 160 mg PO DAILY 09/03/20 Lisinopril [Zestril] 5 mg PO DAILY 09/03/20 Loratadine [Claritin*] 10 mg PO BID 09/03/20 Ondansetron [Zofran (Odt)*] 4 mg PO Q6H PRN #20 tab 10/20/21 Pantoprazole [Protonix Tab*] 40 mg PO BIDAC 30 Days #60 tab 10/20/21 Sucralfate [Carafate*] 1 gm PO ACHS 30 Days #120 tab 10/20/21 Buspirone HCl [Buspar*] 5 mg PO BID 06/11/22 Cholecalciferol (Vitamin D3) [Vitamin D3] 25 mcg PO DAILY 06/11/22 Famotidine [Pepcid] 40 mg PO BEDTIME 06/11/22 Levothyroxine Sodium 150 mcg PO DAILY 06/11/22 Bumetanide [Bumex*] 2 mg PO BID tab 06/21/22 Diphenhydramine [Benadryl*] 25 mg PO BEDTIME PRN tab 06/21/22 Docusate [Colace Cap*] 100 mg PO BID cap 06/21/22 Melatonin 5 mg PO BEDTIME PRN PRN #0 06/21/22 Metoprolol Succinate [Toprol Xl*] 12.5 mg PO BID 6AM 6PM tab 06/21/22 Mupirocin Oint [Bactroban 2% Ointment*] 1 appl TOP BID tube 06/21/22 - Past Medical/Surgical History Diabetic: Yes -: IDDM -: Hypertension -: Hypothyroidism -: ESRD -: hyperlipidemia -: depression -: Paralyzed Stomach -: Neuropathy -: Back fusion -: bilateral total knee replacements -: bilateral carpal tunnel sx -: c section -: thyroidectomy -: neck fusion -: PD Cath then removed -: Cholecystectomy Psychosocial/ Personal History: Patient lives at home with her - Family History Mother -: Heart disease, Hypertension, Lung disease, Cancer Notes: breast ca Father -: Heart disease, Hypertension, Other (see notes) Notes: Alzheimer's - Social History Smoking Status: Never smoker Alcohol use: No CD- Drugs: No Caffeine use: Yes Place of Residence: Home Review of Systems General: Unremarkable Eyes: Unremarkable ENT: Unremarkable Respiratory: Shortness of Breath Cardiovascular: Unremarkable Gastrointestinal: Unremarkable Musculoskeletal: Pedal edema, Other (BLE edema) Integumentary: Unremarkable Neurological: Unremarkable Lymphatics: Unremarkable Physical Examination - Physical Exam General: Alert, In no apparent distress, Oriented x3, Cooperative HEENT: Atraumatic, PERRLA, Mucous membr. moist/pink, EOMI, Sclerae nonicteric Neck: Supple, 2+ carotid pulse no bruit, No LAD, Without JVD or thyroid abnormality Respiratory: Diminished Cardiovascular: Regular rate/rhythm, Normal S1 S2, Edema Capillary refill: <2 Seconds Gastrointestinal: Normal bowel sounds, Non-distended, No tenderness Musculoskeletal: No clubbing, No contractures, No tenderness Integumentary: No rashes, No significant lesion Neurological: Normal speech, Normal tone, Normal affect Lymphatics: No axilla or inguinal lymphadenopathy - Studies Laboratory Data (last 24 hrs) 08/08/22 11:58: PT 13.2 H, INR 1.20, APTT 30.2 08/08/22 11:58: WBC 11.70 H, Hgb 8.2 L, Hct 25.5 L, Plt Count 185 08/08/22 11:58: Sodium 141, Potassium 4.1, BUN 70 H, Creatinine 5.00 H, Glucose 63 L, Total Bilirubin 0.5, AST 16, ALT 16, Alkaline Phosphatase 169 H Assessment and Plan - Plan -- Volume overload. Secondary to missed dialysis. Nephrology consulted. Continue home diuretics. Will await further recommendation from sound ranging crewmember. --Acute on chronic diastolic CHF exacerbation. Secondary to missed dialysis. Head Bookkeeper on board. Dialysis schedule per sound ranging crewmember. Daily weight and strict I/O. --DM2. BS monitor with sliding scale insulin. Hypoglycemic protocol. --Leukocytosis. Likely reactive. Will reassess levels in a.m. --Anemia of chronic disease. H&H stable. We will continue to monitor hemoglobin and transfuse if less than 7.0. .--HLD. Continue statin --Hypertension. Poorly controlled. Continue home medications and hydralazine as needed. --Class III obesity. Likely secondary to excess calories intake. Patient counseled on weight reduction, diet and exercise therapy. --GERD. Continue Protonix. --Hypothyroidism. Continue Synthroid. --DVT prophylaxis with heparin subQ. -- Discharge Plan: Home Plan to discharge in: 48 Hours - Advance Directives Does patient have a Living Will: No Does patient have a Durable POA for Healthcare: Yes - Code Status/Comfort Care Code Status Assessed: Yes Physician Review: Patient Assessed, Agree with Above Assessment and Plan Critical Care: No
[2022-08-08] MEDS ORDERED: D10W 250 ML BAG IV PRN (15:57)
[2022-08-08] MEDS: INSULIN -REGULAR HUMAN 50 UNIT/0.5 ML ML SQ SCH ×2 (16:30→21:00)
[2022-08-08 16:51] LABS: Magnesium 2.4 mg/dL (1.6-2.4); Phosphorus 6.4 mg/dL (2.5-4.9)
[2022-08-08] MEDS ORDERED: FUROSEMIDE 40 MG/4 ML VIAL IV ONE (17:01)
[2022-08-08] MEDS ORDERED: PANTOPRAZOLE 40MG TABLET PO ONE (17:23)
[2022-08-08] MEDS ORDERED: SUCRALFATE 1 GM TABLET ONE ×2 (17:23→21:02)
[2022-08-08] MEDS: SUCRALFATE 1 GM TABLET PO SCH ×2 (17:30→21:00)
[2022-08-08] MEDS: PANTOPRAZOLE 40MG TABLET PO SCH (17:30)
[2022-08-08] MEDS: METOPROLOL XL 25 MG TAB PO SCH (18:00)
[2022-08-08] MEDS ORDERED: HYDRALAZINE HCL 20 MG/ML VIAL IV PRN (19:05)
[2022-08-08] MEDS: LORATADINE 10 MG TAB PO SCH (21:00)
[2022-08-08] MEDS: BUMETANIDE 1 MG TABLET PO SCH (21:00)
[2022-08-08] MEDS ORDERED: HOME MED 1 EA UNK (Aspirin [Aspirin Ec 325 Mg] 325 MG Tablet.Dr) PO SCH (21:00)
[2022-08-08] MEDS ORDERED: FAMOTIDINE 20 MG TAB PO SCH (21:00)
[2022-08-08] MEDS: ATORVASTATIN 20 MG TAB PO SCH (21:00)
[2022-08-08] MEDS: HEPARIN 5000 UNIT/ML 1 ML VIAL SQ SCH (21:00)
[2022-08-08] MEDS: BUSPIRONE HCL 5 MG TABLET PO SCH (21:00)
[2022-08-08] MEDS: DOCUSATE NA 100 MG CAP PO SCH (21:00)
[2022-08-08] MEDS: MUPIROCIN 2% TOP SCH (21:00)
[2022-08-08] MEDS ORDERED: HOME MED 1 EA UNK (Famotidine [Pepcid] 40 MG Tablet) PO SCH (21:00)
[2022-08-08] MEDS ORDERED: ATORVASTATIN 20 MG TAB ONE (21:02)
[2022-08-08] MEDS ORDERED: HEPARIN 5000 UNIT/ML 1 ML VIAL ONE (21:02)
[2022-08-08] MEDS ORDERED: DOCUSATE NA 100 MG CAP PO ONE (21:07)
[2022-08-08] MEDS ORDERED: ONDANSETRON 4 MG/2 ML VIAL ONE (23:33)
[2022-08-08] MEDS: ONDANSETRON 4 MG/2 ML VIAL IV PRN (23:41)
[2022-08-09 02:36] LABS: Absolute Lymphocytes (CBC) 0.8 K/uL (0.7-4.9); Hematocrit 24.4 % (36.0-45.0); Lymphocytes % 7.7 % (15.3-44.8); MCV 91.9 fL (80-100); MPV 7.1 fL (7.6-11.3); RBC Red Blood Cell Count 2.66 M/uL (3.86-4.86)
[2022-08-09 02:46] LABS: Potassium 4.1 mmol/L (3.5-5.1)
[2022-08-09] MEDS ORDERED: HYDROCODONE/APAP 5/325 MG TAB ONE (03:25)
[2022-08-09] MEDS: HYDROCODONE/APAP 5/325 MG TAB PO PRN (03:27)
[2022-08-09] MEDS: METOPROLOL XL 25 MG TAB PO SCH ×2 (06:00→17:05)
[2022-08-09] MEDS ORDERED: LEVOTHYROXINE SOD 0.075 MG TAB PO SCH (06:30)
[2022-08-09] MEDS: INSULIN -REGULAR HUMAN 50 UNIT/0.5 ML ML SQ SCH ×4 (07:28→20:26)
[2022-08-09] MEDS ORDERED: HOME MED 1 EA UNK (Furosemide [Furosemide] 80 MG Tablet) PO SCH (09:00)
[2022-08-09] MEDS ORDERED: HOME MED 1 EA UNK (Cholecalciferol (Vitamin D3) [Vitamin D3] 25 MCG Capsule) PO SCH (09:00)
[2022-08-09] MEDS: MUPIROCIN 2% TOP SCH ×2 (09:00→20:25)
[2022-08-09] MEDS ORDERED: ASPIRIN EC 325 MG TABLET PO SCH (09:00)
[2022-08-09] MEDS ORDERED: HOME MED 1 EA UNK (Levothyroxine Sodium [Levothyroxine Sodium] 150 MCG Tablet) PO SCH (09:00)
[2022-08-09] MEDS ORDERED: VITAMIN D 1000 UNIT TAB PO SCH (09:00)
[2022-08-09] MEDS: SEVELAMER CARBONATE 800 MG TABLET PO SCH ×3 (09:26→16:25)
[2022-08-09] MEDS: HEPARIN 5000 UNIT/ML 1 ML VIAL SQ SCH ×2 (09:26→20:26)
[2022-08-09] MEDS: PANTOPRAZOLE 40MG TABLET PO SCH ×2 (09:27→16:26)
[2022-08-09] MEDS: BUMETANIDE 1 MG TABLET PO SCH ×2 (09:27→20:23)
[2022-08-09] MEDS: FOLIC ACID 1 MG TABLET PO SCH (09:27)
[2022-08-09] MEDS: LORATADINE 10 MG TAB PO SCH ×2 (09:27→20:25)
[2022-08-09] MEDS: DOCUSATE NA 100 MG CAP PO SCH ×2 (09:27→20:25)
[2022-08-09] MEDS: BUSPIRONE HCL 5 MG TABLET PO SCH ×2 (09:28→20:25)
[2022-08-09] MEDS: SUCRALFATE 1 GM TABLET PO SCH ×4 (09:28→20:25)
[2022-08-09] MEDS: FUROSEMIDE 40 MG TABLET PO SCH (09:28)
[2022-08-09] MEDS: EPOETIN ALFA 10,000 UNIT/ML VIAL IV SCH (11:30)
--- NOTE | 2022-08-09 16:44 | CON ---
Reason For Consultation: Overvolume. History Of Present Illness: This is a 67-year-old female well known to me from dialysis with signifi cant past medical history of diabetes; hyperlipidemia; hypertension; CAD, status post PTCA recently; and end-stage renal disease, poorly compliant on dialysis, but not . Patient [facility] to do her cardiac cath, found to be hypoglycemic and overvolume. For that reason, patient wa s admitted. Patient received dialysis today, feeling better. Allergies: CODEINE, PROMETHAZINE, ADHESIVE. Home Medications: Include aspirin, pantoprazole, buspirone, cholecalciferol, levothyroxine, Bumex, d ocusate, melatonin. Past Medical History: Include: 1.Diabetes. 2.CAD. 3.End-stage renal disease. 4.Depression. Past Surgical History: Include: 1.PD catheter placement. 2.. 3.PermCath placement and removal. 4.Bilateral knee replacement. 5.Carpal tunnel surgery. Family History: Positive for diabetes, hypertension, and end-stage renal disease. Social History: Denied smoking. Denies drinking. Denies drugs abuse. Review of Systems: Head and Neck: No red eye. No ear pain. GI: No nausea, no vomiting. : No polyuria, no dysuria, no hematuria. 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 Respiratory: Has shortness of breath. Cardiovascular: Has chest pain. Endocrine: No polydipsia. Skin: No rash. Neuro: Has neuropathy. Musculoskeletal: Generalized body ache and fatigue. Physical Examination: Vital Signs: Blood pressure 118/58, pulse of 79, afebrile. Chest: Crackles bilateral. Heart: S1, S2. Systolic murmur. Abdomen: Soft, nontender. Extremities: Plus edema. Neurologic: Alert. No focality. Laboratory Data: For the patient, hemoglobin 8. Sodium 140, potassium 4.1, bicarb 22, BUN 77, creat inine 4.9, calcium 8.6. Chest x-ray: Cardiomegaly with congestion. Current Medications: The patient is on include: 1.Heparin. 2.Epogen. 3.Atorvastatin. 4.Metoprolol. 5.Buspirone. 6.Lasix 160 daily. 7.Folic acid. 8.Pantoprazole. Assessment And Plan: 1.End-stage renal disease, overvolume. I am going to go ahead and arrange for another session of di alysis tomorrow for 2 hours. We will monitor the patient. 2.Hypertension. We will keep utilizing blood pressure for more ultrafiltration. 3.Congestive heart failure with exacerbation. We will try to optimize fluid status for the patient. 4.Coronary artery disease, non-ST elevation myocardial infarction as by Cardiology. We will follow up if she going to get the other stent. JOSÉ MIGUEL/RENÉ Voice ID: [id number] Report ID: [id number]
[2022-08-09] MEDS: ATORVASTATIN 20 MG TAB PO SCH (20:25)
--- NOTE | 2022-08-09 21:05 | P.PN ---
Date of Service: 08/09/22 Subjective: no significant change scheduled for HD today ROS: A complete review of systems was performed and is negative except as mentioned above Physical Exam: Gen: NAD, AOx3 HEENT: normal conjunctiva, sclera anicteric CV: regular rate & rhythm, 1+ b/l lower extremity edema Pulm: non-labored respirations on 2L NC Abd: soft, non-tender, non-distended Neuro: normal speech, normal affect, moves all extremities vitals reviewed Problem List volume overload acute on chronic diastolic CHF exacerbation (HFpEF) ESRD on HD CAD needing PCI anemia of chronic disease IDDM2 HTN Hypothyroidism patient scheduled for cardiac cath 08/08, however unable to be completed secondary to respiratory distress / volume overload /hypoglycemia ~1-2 weeks of unable to tolerate full dialysis secondary to hypotension / not feeling well feels she has been retaining more fluid as a result and dyspneic, with orthopnea contributed to inability to get cardiac cath done as outpatient Nephrology consulted for HD cardiology consulted patient unable to be optimized for outpatient cath will need improvement of volume status and suspect will need cath prior to discharge continue home meds - aspirin, statin, plavix, bumex VTE: heparin sq Code: full Dispo: home, after cath
[2022-08-09 23:19] LABS: Renal Epithelial <5 /HPF (None Seen); Specific Gravity 1.016 (1.005-1.030); Urine Bacteria <20 /HPF (<20); Urine Bilirubin NEGATIVE (Negative); Urine Blood Trace (Negative); Urine Clarity Clear (Clear); Urine Color Light-Yellow (Yellow); Urine Glucose 3+ (Negative); Urine Mucus Slight /HPF (None Seen); Urine Protein 3+ (Negative); Urine RBC <5 /HPF (None Seen); Urine Urobilinogen Normal (Normal)
[2022-08-10] MEDS: MELATONIN 5 MG TABLET PO PRN (01:10)
[2022-08-10 03:26] LABS: Absolute Lymphocytes (CBC) 0.9 K/uL (0.7-4.9); Hematocrit 23.7 % (36.0-45.0); Lymphocytes % 8.1 % (15.3-44.8); MCV 91.5 fL (80-100); MPV 7.2 fL (7.6-11.3); RBC Red Blood Cell Count 2.59 M/uL (3.86-4.86)
[2022-08-10 03:32] LABS: Magnesium 2.1 mg/dL (1.6-2.4); Potassium 3.7 mmol/L (3.5-5.1)
[2022-08-10] MEDS: HYDROCODONE/APAP 5/325 MG TAB PO PRN (03:54)
[2022-08-10] MEDS: ONDANSETRON 4 MG/2 ML VIAL IV PRN ×2 (03:55→23:11)
[2022-08-10] MEDS ORDERED: KCL 20 MEQ/100 mL IVPB 20 MEQ/100 ML BAG IV SCH (06:00)
[2022-08-10] MEDS: METOPROLOL XL 25 MG TAB PO SCH ×2 (06:00→17:04)
[2022-08-10] MEDS ORDERED: NA CHLORIDE 0.9% 250 ML ONE ×2 (06:50→09:08)
[2022-08-10] MEDS: PANTOPRAZOLE 40MG TABLET PO SCH ×2 (07:30→16:14)
[2022-08-10] MEDS: SUCRALFATE 1 GM TABLET PO SCH ×4 (07:30→20:23)
[2022-08-10] MEDS: INSULIN -REGULAR HUMAN 50 UNIT/0.5 ML ML SQ SCH ×4 (07:30→20:25)
--- NOTE | 2022-08-10 07:37 | P.PN ---
Date of Service: 08/10/22 Subjective: feeling better still dyspneic / +orthopnea tolerated HD yesterday better than as outpatient ROS: A complete review of systems was performed and is negative except as mentioned above Physical Exam: Gen: NAD, AOx3 HEENT: normal conjunctiva, sclera anicteric CV: regular rate & rhythm, 1+ b/l lower extremity edema Pulm: non-labored respirations on 2L NC, crackles bilaterally at bases Abd: soft, non-tender, non-distended Neuro: normal speech, normal affect, moves all extremities vitals reviewed Problem List volume overload acute on chronic diastolic CHF exacerbation (HFpEF) ESRD on HD CAD needing PCI anemia of chronic disease IDDM2 with hypoglycemia HTN Hypothyroidism patient scheduled for cardiac cath 08/08, however unable to be completed secondary to respiratory distress / volume overload /hypoglycemia unable to lay flat for procedure secondary to volume overload ~1-2 weeks of unable to tolerate full dialysis secondary to hypotension / not feeling well during dialysis feels she has been retaining more fluid as a result and dyspneic, with orthopnea contributed to inability to get cardiac cath done as outpatient Nephrology consulted for HD cardiology consulted patient unable to be optimized for cath as outpatient requiring more frequent/aggressive fluid removal in hospital and cardiac cath/ PCI prior to discharge unable to be done as outpatient continue home meds - aspirin, statin, plavix, bumex VTE: heparin sq Code: full Dispo: home, after cath
[2022-08-10] MEDS: SEVELAMER CARBONATE 800 MG TABLET PO SCH ×3 (08:00→16:14)
[2022-08-10] MEDS: LORATADINE 10 MG TAB PO SCH ×2 (08:34→20:23)
[2022-08-10] MEDS: BUSPIRONE HCL 5 MG TABLET PO SCH ×2 (08:34→20:23)
[2022-08-10] MEDS: BUMETANIDE 1 MG TABLET PO SCH ×2 (08:34→20:23)
[2022-08-10] MEDS: HEPARIN 5000 UNIT/ML 1 ML VIAL SQ SCH ×2 (08:35→20:24)
[2022-08-10] MEDS: FUROSEMIDE 40 MG TABLET PO SCH (08:35)
[2022-08-10] MEDS: FOLIC ACID 1 MG TABLET PO SCH (08:35)
[2022-08-10] MEDS: DOCUSATE NA 100 MG CAP PO SCH ×2 (08:35→20:24)
[2022-08-10] MEDS: MUPIROCIN 2% TOP SCH ×2 (08:35→20:24)
--- NOTE | 2022-08-10 12:19 | PN ---
Date of Progress Note: 08/10/2022 Subjective: The patient was admitted with chest pain, missing dialysis, over volume. The patient wa s dialyzed yesterday and day before. The patient feeling better. Physical Examination: Vital Signs: Blood pressure 113/53, pulse of 82, afebrile. The patient had good urine output. Chest: Crackles bilateral base. Heart: S1, S2. Regular. Systolic murmur. Abdomen: Soft, nontender. Extremities: Trace edema. Neurologic: Alert. No focality. Laboratory Data: Hemoglobin 7.9. Sodium 140, potassium 3.7, bicarb 25, BUN 47, creatinine 3.8, calc ium 8.4, phosphorus 6.4. Current Medications: The patient on include; 1.Loratadine. 2.Heparin. 3.Epogen. 4.Atorvastatin. 5.Metoprolol 12.5. 6.Bumex 2 mg b.i.d. 7.Renvela 2400 with each meal. 8.Folic acid. 9.Carafate. 10.Pantoprazole. Assessment And Plan: 1.End-stage renal disease with over volume. The patient currently normal volume. We will back the patient to her regular dialysis schedule. I am going to arrange for dialysis tomorrow and we will fo llow up the patient. 2.Hypokalemia. The patient is going to be dialyzed on high potassium bath. 3.Anemia of chronic kidney disease. Continue XENIA. 4.Secondary hyperparathyroidism. Continue Renvela. 5.Non-ST elevation myocardial infarction, congestive heart failure. We will continue diuresis. We will try to establish better volume control with dialysis and ultrafiltration. We will follow up wit h Cardiology regarding the catheterization with percutaneous transluminal coronary angioplasty. JOSÉ MIGUEL/RENÉ Voice ID: [id number] Report ID: [id number]
--- NOTE | 2022-08-10 19:55 | CON ---
Date of Consultation: 08/10/2022 Reason For Consultation: Congestive heart failure and chest pain. History Of Present Illness: This 67-year-old female known to have significant coronary artery diseas e, history of end-stage renal disease on hemodialysis, diabetes, hypertension, and hypothyroidism who presented with shortness of breath and lower extremity edema. She missed dialysis due to having pearl rrhea. She was significantly fluid overloaded. Initially, she was scheduled to have coronary artery intervention; however, she could not lie flat so she was sent into the emergency room. We are doing dialysis on daily basis with slow fluid removal. She appears to be doing better, but still has shor tness of breath and orthopnea. Past Medical History: As outlined above in HPI. Medications: Refer to reconciliation sheet for detailed list. Allergies: CODEINE AND PROMETHAZINE. Family History: No premature coronary artery disease or cancer. Social History: She does not smoke or drink. Does not use any drugs. Review of Systems: All systems reviewed and they were negative except for mentioned in HPI. Physical Examination: Vital Signs: Temperature is 97.5, pulse is 90, breathing at 18, blood pressure is 126/56, and satura ting 97%. General: A pleasant middle-aged female, in no apparent distress. Head And Neck: Pupils are equal and reactive to light. Intact eye movements. No JVD. No cervical lymphadenopathy. Neck is supple. Thyroid is not enlarged. Lungs: Clear to auscultation bilaterally. No rhonchi, wheezing, or crackles. No accessory muscle u se. Heart: Irregular. No extra sounds. Abdomen: Soft, nontender. Bowel sounds positive. No organomegaly. No masses or hernia. No rigidi ty or rebound. Extremities: No edema, clubbing, or cyanosis. Intact pulses. Skin: No rash noted. Neurologic: Alert, awake, oriented x3. No acute focal deficits appreciated. Investigations: BUN 47, creatinine 3.8. Hemoglobin is 7.9. Assessment/recommendation: 1.Coronary artery disease. She will need coronary intervention and percutaneous coronary interventi on. Once her fluid status is balanced, we will plan reassessment in the morning. If she can lie fla t then we will plan for a coronary angiogram tomorrow afternoon. 2.End-stage renal disease, on hemodialysis. Continue current management. 3.Vghrd-th-xoavcxj diastolic heart failure exacerbation. The patient needs more aggressive fluid re moval via dialysis. SR/MODL Voice ID: [id number] Report ID: [id number]
[2022-08-10] MEDS: ATORVASTATIN 20 MG TAB PO SCH (20:24)
[2022-08-11] MEDS: MELATONIN 5 MG TABLET PO PRN (00:46)
[2022-08-11] MEDS ORDERED: ONDANSETRON 4 MG/2 ML VIAL IV ONE (02:08)
[2022-08-11 03:39] LABS: Hematocrit 21.5 % (36.0-45.0); RBC Red Blood Cell Count 2.34 M/uL (3.86-4.86)
[2022-08-11 03:55] LABS: Albumin 2.5 g/dL (3.4-5.0); Phosphorus 4.6 mg/dL (2.5-4.9)
[2022-08-11] MEDS: ONDANSETRON 4 MG/2 ML VIAL IV PRN (05:46)
[2022-08-11] MEDS: METOPROLOL XL 25 MG TAB PO SCH ×2 (05:52→18:23)
[2022-08-11] MEDS: SUCRALFATE 1 GM TABLET PO SCH ×4 (07:30→20:20)
[2022-08-11] MEDS: PANTOPRAZOLE 40MG TABLET PO SCH ×2 (07:30→16:30)
[2022-08-11] MEDS: SEVELAMER CARBONATE 800 MG TABLET PO SCH ×3 (08:00→17:00)
[2022-08-11] MEDS: FOLIC ACID 1 MG TABLET PO SCH (08:31)
[2022-08-11] MEDS: HEPARIN 5000 UNIT/ML 1 ML VIAL SQ SCH (08:31)
[2022-08-11] MEDS: BUSPIRONE HCL 5 MG TABLET PO SCH ×2 (08:31→20:21)
[2022-08-11] MEDS: MUPIROCIN 2% TOP SCH ×2 (08:31→21:00)
[2022-08-11] MEDS: DOCUSATE NA 100 MG CAP PO SCH ×2 (08:31→20:21)
[2022-08-11] MEDS: LORATADINE 10 MG TAB PO SCH ×2 (08:31→20:21)
[2022-08-11] MEDS: BUMETANIDE 1 MG TABLET PO SCH ×2 (08:31→20:20)
[2022-08-11] MEDS: INSULIN -REGULAR HUMAN 50 UNIT/0.5 ML ML SQ SCH ×4 (08:37→20:21)
--- NOTE | 2022-08-11 08:39 | RAD REPORT ---
EXAM DESCRIPTION: RAD - Chest Single View - 08/11/2022 6:38 am CLINICAL HISTORY: f/u chf Chest pain. COMPARISON: Chest Single View dated 08/08/2022; Chest Single View dated 06/14/2022; Chest Single View dated 06/11/2022; Chest Single View dated 10/14/2021 FINDINGS: Portable technique limits examination quality. Moderate bilateral opacities appear unchanged. The heart is mildly prominent in size. Left-sided venous catheter is in stable position. IMPRESSION: Stable chest since 08/08/2022.
--- NOTE | 2022-08-11 12:36 | P.PN ---
Subjective Date of Service: 08/11/22 Chief Complaint: Shortness of breath and hypoglycemia. Subjective: Other (Had [facility] today.) Physical Examination - Vital Signs Temperature: 97.7 F Blood Pressure: 131/65 Pulse: 87 Respirations: 19 Pulse Ox (%): 93 - Physical Exam General: Other (appears as her stated age) HEENT: Atraumatic, Normocephalic Respiratory: Other (symmetric chest expansion) Cardiovascular: No rubs, No murmurs Gastrointestinal: Soft and benign, No guarding Musculoskeletal: No clubbing Integumentary: No warmth Neurological: Normal speech, Normal tone Urinary: Other (no bladder distention) External genitalia: Deferred Rectal: Deferred Assessment And Plan - Plan 1. End-stage renal disease with volume overload. HD unable to due to the due to scheduling. Will do HD tomorrow Sat. 2. Hypokalemia. improved. Correction via HD. 3. Anemia of chronic kidney disease. Continue XENIA. 4. Secondary hyperparathyroidism. Continue Renvela. 5. Non-ST elevation myocardial infarction, congestive heart failure. Diuresis via HD. S/p PCI on 08/12/22. Per Cardiology. Physician Review: Patient Assessed, Agree with Above Assessment and Plan
[2022-08-11] MEDS ORDERED: NA CHLORIDE 0.9% 500 ML ONE (13:02)
[2022-08-11] MEDS ORDERED: HEPA 1000U/500MLS 2,000 UNIT/1,000 ML BAG IV ONE (13:33)
[2022-08-11] MEDS ORDERED: LIDOCAINE 1% 20 ML MDV ONE (13:33)
[2022-08-11] MEDS ORDERED: MIDAZOLAM HCL 2 MG/2 ML INJ ONE (13:34)
[2022-08-11] MEDS ORDERED: VERAPAMIL HCL 10 MG/4 ML VIAL IV ONE (13:34)
[2022-08-11] MEDS ORDERED: FENTANYL CITR 100 MCG/2 ML ONE (13:34)
[2022-08-11] MEDS ORDERED: HEPARIN 5000 UNIT/ML 1 ML VIAL ONE (13:34)
[2022-08-11] MEDS ORDERED: ATROPINE SULF 1 MG/10 ML SYR IV ONE (13:34)
[2022-08-11] MEDS ORDERED: HEPARIN 10,000 UNIT/10 ML VIAL IV ONE (13:35)
[2022-08-11] MEDS ORDERED: CLOPIDOGREL 75 MG TABLET ONE (14:46)
[2022-08-11] MEDS ORDERED: ASPIRIN 325 MG TAB ONE (14:46)
[2022-08-11] MEDS ORDERED: ONDANSETRON 4 MG/2 ML VIAL ONE ×2 (15:08→15:09)
[2022-08-11] MEDS ORDERED: METOCLOPRAMIDE 10 MG/2mL INJ ONE (15:28)
[2022-08-11] MEDS ORDERED: PANTOPRAZOLE 40 MG INJ IVP ONE (15:44)
[2022-08-11] MEDS ORDERED: SODIUM CHLORIDE 0.9% 10ML INJ IV PRN (15:44)
--- NOTE | 2022-08-11 19:35 | PN ---
Date of Progress Note: 08/11/2022 Subjective: Seen by bedside, doing clinically well. No significant shortness of breath. Review of Systems: No shortness of breath, chest pain. No nausea, vomiting, or diarrhea. No abdominal pain. No dysuri a, polyuria, or urinary urgency. All other systems reviewed are negative. Physical Examination: Vital Signs: Temperature is 97.7, pulse 87, breathing in 19, blood pressure 131/65, saturating 93%. General: Pleasant middle-aged female, in no apparent distress. Head and Neck: Pupils are equal, reactive to light. Intact eye movements. No JVD. No cervical lym phadenopathy. Neck is supple. Thyroid is not enlarged. Lungs: Clear to auscultation bilaterally. No rhonchi, wheezing, or crackles. No accessory muscle u se. Heart: Regular rate and rhythm. No extra sounds. Abdomen: Soft, nontender. Bowel sounds positive. No organomegaly. No masses or hernia. No rigidi ty or rebound. Extremities: No clubbing or cyanosis. Intact pulses. Skin: No rash or nodules. Neurologic: Alert, awake, oriented x3. No acute focal deficits appreciated. Investigations: Labs were reviewed. Assessment/recommendations: 1.Severe coronary artery disease, status post PCI to the circ about a month ago. We will take her t jessika to do a PCI of the RCA and then at a later time to the LAD. 2.Congestive heart failure exacerbation and fluid retention. Did well with dialysis and she is on B umex, still making urine. She appears to be euvolemic. Continue current management. 3.Dyslipidemia, started on Lipitor 40 mg at bedtime. SR/MODL Voice ID: [id number] Report ID: [id number]
[2022-08-11] MEDS ORDERED: HEPARIN/D5W 25,000 UNIT/500 ML BAG IV PRN (20:00)
[2022-08-11] MEDS ORDERED: ATORVASTATIN 40 MG TAB PO SCH (21:00)
--- NOTE | 2022-08-11 21:04 | P.PN ---
Date of Service: 08/11/22 Subjective: feeling better breathing improved npo for cath ROS: A complete review of systems was performed and is negative except as mentioned above Physical Exam: Gen: NAD, AOx3 HEENT: normal conjunctiva, sclera anicteric CV: regular rate & rhythm, 1+ b/l lower extremity edema Pulm: non-labored respirations on 2L NC, diminished breath sounds, crackles bilaterally at bases Abd: soft, non-tender, non-distended Neuro: normal speech, normal affect, moves all extremities vitals reviewed Problem List volume overload acute on chronic diastolic CHF exacerbation (HFpEF) ESRD on HD CAD needing PCI anemia of chronic disease IDDM2 with hypoglycemia HTN Hypothyroidism patient scheduled for cardiac cath 08/08, however unable to be completed secondary to respiratory distress / volume overload /hypoglycemia unable to lay flat for procedure secondary to volume overload ~1-2 weeks of unable to tolerate full dialysis secondary to hypotension / not feeling well during dialysis feels she has been retaining more fluid as a result and dyspneic, with orthopnea contributed to inability to get cardiac cath done as outpatient Nephrology consulted for HD cardiology consulted patient unable to be optimized for cath as outpatient requiring more frequent/aggressive fluid removal in hospital and cardiac cath/ PCI prior to discharge unable to be done as outpatient plan for cardiac cath today HD afterwards continue home meds - aspirin, statin, plavix, bumex VTE: heparin sq Code: full Dispo: home, anticipate tomorrow
[2022-08-12] MEDS: ONDANSETRON 4 MG/2 ML VIAL IV PRN ×2 (00:07→05:35)
[2022-08-12] MEDS: MELATONIN 5 MG TABLET PO PRN (00:10)
--- NOTE | 2022-08-12 02:59 | OP ---
Date of Procedure: 08/11/2022 Surgeon: PATRICIA SLOAN Procedures Performed: 1.Selective coronary angiogram. 2.PCI of severe distal RCA stenosis, used 3.0 x 24 mm Synergy drug-eluting stent post dilated mid an d proximal portion using 3.5 x 8 mm NC balloon. Indication: Known severe coronary artery disease with congestive heart failure. Access: Right radial artery 6-[place], closed with TR band. Complications: None. Bleeding: Less than 20 mL. Anesthesia: Total sedation time was 50 minutes, used fentanyl and Versed. Description Of Procedure: After risks, benefits, and alternatives were explained, patient agreed to the procedure and signed informed consent. The patient was brought into the cardiac catheterization laboratory, prepped and draped in usual sterile fashion. Then, I accessed right radial artery using pediatric micropuncture kit and placed a 6-[place] Slender sheath. Took 5-[place] 4.0 catheter i nto the aortic root over a J-wire and engaged left main and then right coronary artery, took standard views and gave systemic heparin to assure ACT level above 250 and loaded with 600 mg of Plavix and 3 25 mg of aspirin. I took a 6-[place] JR4 guide into the aortic root, engaged the RCA and took a short run-through wire into the distal RCA, placed in the PDA and another run-through wire into the PLB an d the lesion was pre-dilated using a 3.5 x 12 mm balloon. Lesion expanded very well and then placed a 3.0 x 24 mm Synergy drug-eluting stent from distal RCA through the PDA and postdilated the proximal and the midportion using a 3.5 x 8 mm NC balloon. Excellent angiographic results. We removed the w ires and the guide and the sheath placed TR band with good hemostasis. Findings: 1.Left main; large and normal. 2.LAD; large vessel proximal diffuse 40% to 50% stenosis. Diagonal branch is small, diffusely disea sed, and then the mid segment, there are 3 tandem lesions ranging between 80% and 90% stenosis and it is a large vessel. 3.Left circumflex is codominant with proximal to mid patent stent and then after the OM1 takeoff, th ere is about 40% focal stenosis. 4.RCA; very large and dominant, very large PDA, it is a 3-0 vessel, has an 80% stenosis distally serenity t extends to the PDA, status post successful PCI. The PLB was jailed slightly; however, there was st ill PATRICIA-2 flow in it that was left alone and it is a very small vessel. Conclusion: 1.Severe distal RCA stenosis, status post successful PCI as above. 2.Severe LAD disease. We will plan for staged PCI at a later time. 3.Patent left circumflex stent with moderate disease after the stent. Plan: 1.Aspirin and Plavix, high-dose statin. 2.Staged PCI of the LAD, which will be done in [place] in about 4 weeks. SR/MODL Voice ID: [id number] Report ID: [id number]
[2022-08-12] MEDS ORDERED: CALCIUM CARBONATE CHEW 500MG TAB PO PRN (04:13)
[2022-08-12] MEDS: METOPROLOL XL 25 MG TAB PO SCH (05:35)
[2022-08-12 07:10] LABS: Albumin 2.6 g/dL (3.4-5.0); Magnesium 2.3 mg/dL (1.6-2.4); Phosphorus 5.4 mg/dL (2.5-4.9); Potassium 4.1 mmol/L (3.5-5.1)
[2022-08-12] MEDS: PANTOPRAZOLE 40MG TABLET PO SCH (09:00)
[2022-08-12] MEDS: MUPIROCIN 2% TOP SCH (09:00)
[2022-08-12] MEDS ORDERED: CLOPIDOGREL 75 MG TABLET PO SCH (09:00)
[2022-08-12] MEDS ORDERED: ASPIRIN EC 81 MG TAB PO SCH (09:00)
[2022-08-12] MEDS: BUMETANIDE 1 MG TABLET PO SCH (09:00)
[2022-08-12] MEDS: LORATADINE 10 MG TAB PO SCH (09:01)
[2022-08-12] MEDS: BUSPIRONE HCL 5 MG TABLET PO SCH (09:01)
[2022-08-12] MEDS: SUCRALFATE 1 GM TABLET PO SCH ×2 (09:01→11:30)
[2022-08-12] MEDS: DOCUSATE NA 100 MG CAP PO SCH (09:01)
[2022-08-12] MEDS: SEVELAMER CARBONATE 800 MG TABLET PO SCH ×2 (09:01→12:00)
[2022-08-12] MEDS: FOLIC ACID 1 MG TABLET PO SCH (09:01)
[2022-08-12] MEDS: INSULIN -REGULAR HUMAN 50 UNIT/0.5 ML ML SQ SCH ×2 (09:02→11:30)
[2022-08-12 12:22] VITALS: BP 122/56; TEMP 97.2
[2022-08-12] MEDS: EPOETIN ALFA 10,000 UNIT/ML VIAL IV SCH (13:45)
--- NOTE | 2022-08-12 13:50 | PN ---
Date of Progress Note: 08/12/2022 Subjective: The patient was admitted with over volume. The patient was dialyzed on daily basis, the n back to her scheduled TTS, scheduled for dialysis today. The patient is status post PTCA yesterday by Dr. Lantigua. Physical Examination: Vital Signs: Blood pressure 131/65, pulse of 87, afebrile. Chest: Clear to auscultation. Heart: S1, S2. Systolic murmur. Abdomen: Soft, nontender. Extremities: Trace edema. Neurologic: Alert. No focality. Laboratory Data: Hemoglobin 7.1. Sodium 136, potassium 4.1, bicarb 23, BUN 60, creatinine 4.8, calc ium 8.8, phosphorus 5.4. Current Medications: The patient on include; 1.Heparin. 2.Epogen. 3.Calcium carbonate. 4.Metoprolol. 5.Atorvastatin. 6.Buspirone. 7.Tylenol. 8.Bumex 2 mg b.i.d. 9.Renvela. 10.Pantoprazole. 11.Carafate. 12.Zofran. 13.Docusate. Assessment And Plan: 1.End-stage renal disease, over volume, currently normal volume. Continue dialysis TTS. 2.Hypertension, controlled, optimal. Continue current treatment. 3.Coronary artery disease, non-ST elevation myocardial infarction, status post percutaneous translum inal coronary angioplasty. We will follow up with Cardiology. 4.Diabetes as by primary. 5.Secondary hyperparathyroidism. Continue Renvela. 6.Anemia of chronic kidney disease. Continue XENIA. JOSÉ MIGUEL/RENÉ Voice ID: [id number] Report ID: [id number]
[2022-08-12 14:29] VITALS: O2SAT 94
[2022-08-12] MEDS: HYDROCODONE/APAP 5/325 MG TAB PO PRN (14:45)
[2022-08-12 16:34] VITALS: BMI 38.1
--- NOTE | 2022-08-21 10:16 | P.DS ---
Admission Date: 08/08/22 Discharge Date: 08/12/22 Disposition: ROUTINE DISCHARGE Discharge Condition: GOOD Reason for Admission: Shortness of breath and hypoglycemia. Consultations: Cardiology - Dr. Lantigua Nephrology - Dr. Flores Brief History of Present Illness: 89yo F, PMH: ESRD, DM2, HLD, HTN, hypothyroidism, morbid obesity. Presented to ED due to shortness of breath and hypoglycemia. She has been unable to tolerated dialysis as outpatient. She was scheduled for stent placement and was noted to be in respiratory distress when attempting to lay flat / prep for the procedure today. Cath was canceled and patient was brought to the ED. She was NPO overnight and reports taking her insulin yesterday. Hospital Course: Problem List volume overload acute on chronic diastolic CHF exacerbation (HFpEF) ESRD on HD CAD needing PCI anemia of chronic disease IDDM2 with hypoglycemia HTN Hypothyroidism Presented to hospital due to shortness of breath / respiratory distress and hypoglycemia. Patient was unable to tolerated laying flat for cardiac catheterization. She was found to be volume overloaded. Over the last `1-2 weeks, she has been unable to fully tolerate her HD sessions and has been accumulating fluid. Nephrology was consulted and patient underwent dialysis while hospitalized. Her fluid status was optimized as possible and she underwent cardiac catheterization with stent placement. She was monitored and received HD after catheterization. She was deemed stable for discharge home. To continue home medications as previously prescribed with exception of changing brilinta lto plavix. stop brilinta. Continue on new prescription: plavix (if any difficulty or inability to obtain plavix, take brilinta instead), do not take both Follow up: Cardiology as scheduled. Vital Signs/Physical Exam: Temp Pulse Resp BP Pulse Ox 97.2 F 79 18 122/56 L 98 08/12/22 12:00 08/12/22 12:00 08/12/22 12:00 08/12/22 12:08/12/22 12:00 Physical Exam: Gen: NAD, AOx3 HEENT: normal conjunctiva, sclera anicteric CV: regular rate & rhythm, trace b/l pedal edema Pulm: non-labored respirations on room air Abd: soft, non-tender, non-distended Neuro: normal speech, normal affect, moves all extremities Laboratory Data at Discharge: WBC 10.00 K/uL (4.3-10.9) 08/11/22 03:14 Hgb 7.1 g/dL (12.0-15.0) L D 08/11/22 03:14 Hct 21.5 % (36.0-45.0) L 08/11/22 03:14 Plt Count 148 K/uL (152-406) L 08/11/22 03:14 PT 13.2 SECONDS (9.5-12.5) H 08/08/22 11:58 INR 1.20 08/08/22 11:58 APTT Cancelled 08/12/22 15:50 Sodium 136 mmol/L (136-145) 08/12/22 06:29 Potassium 4.1 mmol/L (3.5-5.1) 08/12/22 06:29 BUN 60 mg/dL (7-18) H 08/12/22 06:29 Creatinine 4.85 mg/dL (0.55-1.02) H 08/12/22 06:29 Glucose 284 mg/dL (74-106) H 08/12/22 06:29 Phosphorus 5.4 mg/dL (2.5-4.9) H 08/12/22 06:29 Magnesium 2.3 mg/dL (1.6-2.4) 08/12/22 06:29 Total Bilirubin 0.5 mg/dL (0.2-1.0) 08/08/22 11:58 AST 16 U/L (15-37) 08/08/22 11:58 ALT 16 U/L (13-56) 08/08/22 11:58 Alkaline Phosphatase 169 U/L (45-117) H 08/08/22 11:58 Home Medications: Atorvastatin Calcium [Lipitor] 20 mg PO BEDTIME 11/17/19 Docusate Sodium [Stool Softener] 50 mg PO BID 6AM 6PM 09/03/20 Furosemide 160 mg PO DAILY 09/03/20 Lisinopril [Zestril] 5 mg PO DAILY 09/03/20 Loratadine [Claritin*] 10 mg PO BID 09/03/20 Ondansetron [Zofran (Odt)*] 4 mg PO Q6H PRN #20 tab 10/20/21 Pantoprazole [Protonix Tab*] 40 mg PO BIDAC 30 Days #60 tab 10/20/21 Sucralfate [Carafate*] 1 gm PO ACHS 30 Days #120 tab 10/20/21 Buspirone HCl [Buspar*] 5 mg PO BID 06/11/22 Famotidine [Pepcid] 40 mg PO PRN 06/11/22 Levothyroxine Sodium 150 mcg PO DAILY 06/11/22 Bumetanide [Bumex*] 2 mg PO BID tab 06/21/22 Diphenhydramine [Benadryl*] 25 mg PO BEDTIME PRN tab 06/21/22 Metoprolol Succinate [Toprol Xl*] 12.5 mg PO BID 6AM 6PM tab 06/21/22 Aspirin [Aspirin EC 81 MG] 1 tab PO DAILY 08/12/22 Cholecalciferol (Vitamin D3) [Vitamin D 1000 Iu Tab*] 1 cap PO DAILY 08/12/22 Clopidogrel Bisulfate [Plavix*] 75 mg PO DAILY 30 Days #30 tab 08/12/22 Insulin Glargine,Hum.rec.anlog [Lantus] 50 units SQ BID 08/12/22 New Medications: Clopidogrel Bisulfate [Plavix*] 75 mg PO DAILY 30 Days #30 tab Physician Discharge Instructions: Presented to hospital due to shortness of breath / respiratory distress and hypoglycemia. Patient was unable to tolerated laying flat for cardiac catheterization. She was found to be volume overloaded. Over the last `1-2 weeks, she has been unable to fully tolerate her HD sessions and has been accumulating fluid. Nephrology was consulted and patient underwent dialysis while hospitalized. Her fluid status was optimized as possible and she underwent cardiac catheterization with stent placement. She was monitored and received HD after catheterization. She was deemed stable for discharge home. To continue home medications as previously prescribed with exception of changing brilinta lto plavix. stop brilinta. Continue on new prescription: plavix (if any difficulty or inability to obtain plavix, take brilinta instead), do not take both Follow up: Cardiology as scheduled. Followup: NONE,NONE [Primary Care Provider] - Time spent managing pt's care (in minutes): 45
--- NOTE | 2022-08-22 18:05 | EKG ---
Test Date: 2022-08-08 Test Time: 11:52:57 [place] Up: [place] MEASUREMENT RESULTS: Intervals: Rate: 83 CA: 158 QRSD: 98 QT: 396 QTc: 465 [place]: P: 53 CA: 158 QRS: 9 T: 171 INTERPRETIVE STATEMENTS: Normal sinus rhythm Nonspecific T wave abnormality Abnormal ECG Compared to ECG 08/04/2022 13:42:39 No significant changes Electronically Signed On 08-22-22 17:35:58 [employer] by Imer Lantigua
== END 2022-08-12 17:02 | disposition home or self-care (01) ==
LOC: ER 11:29 → ERHOLD 15:30 → 4TH 08-09 07:46
PROVIDERS: ADMIT Hospitalist; ATTEND Hospitalist
DX: E87.79 Other fluid overload (principal); I13.2 Hypertensive heart and chronic kidney disease with heart failure and with stage 5 chronic kidney disease, or end stage renal disease; E11.22 Type 2 diabetes mellitus with diabetic chronic kidney disease; E11.649 Type 2 diabetes mellitus with hypoglycemia without coma; I50.33 Acute on chronic diastolic (congestive) heart failure; N18.6 End stage renal disease; Z91.15 Patient's noncompliance with renal dialysis; I25.10 Atherosclerotic heart disease of native coronary artery without angina pectoris; E78.5 Hyperlipidemia, unspecified; K21.9 Gastro-esophageal reflux disease without esophagitis; E89.0 Postprocedural hypothyroidism; E11.43 Type 2 diabetes mellitus with diabetic autonomic (poly)neuropathy; D63.1 Anemia in chronic kidney disease; E87.6 Hypokalemia; R01.1 Cardiac murmur, unspecified; I95.9 Hypotension, unspecified; N25.81 Secondary hyperparathyroidism of renal origin; K31.84 Gastroparesis; F32.A Depression, unspecified; Z99.2 Dependence on renal dialysis; E66.01 Morbid (severe) obesity due to excess calories; Z68.38 Body mass index [BMI] 38.0-38.9, adult; Z71.3 Dietary counseling and surveillance; Z71.82 Exercise counseling; Z95.5 Presence of coronary angioplasty implant and graft; Z20.822 Contact with and (suspected) exposure to COVID-19; Z79.82 Long term (current) use of aspirin; Z79.4 Long term (current) use of insulin; Z79.899 Other long term (current) drug therapy; Z88.5 Allergy status to narcotic agent; Z88.8 Allergy status to other drugs, medicaments and biological substances; Z91.09 Other allergy status, other than to drugs and biological substances; Z90.49 Acquired absence of other specified parts of digestive tract; Z96.653 Presence of artificial knee joint, bilateral; Z82.49 Family history of ischemic heart disease and other diseases of the circulatory system; Z83.3 Family history of diabetes mellitus; Z80.3 Family history of malignant neoplasm of breast; Z83.6 Family history of other diseases of the respiratory system; Z84.1 Family history of disorders of kidney and ureter
CPT/HCPCS: 96365; 93005; 85025 ×3; 81001; 80048 ×3; 36415 ×3; 83735 ×3; 84100; 85610; 82947 ×19; 80076; 85347 ×2; 85730 ×4; 80069 ×2; 85027; 84484; 83880 ×2; 0240U; 71045 ×2; 90935 ×3; 93458; 76937; 96375; 99285; 96366; C1893; Q9967; C1725; C9600; J2001; J2765; J1815 ×4; J1644 ×11; C9113; J3480; J2250 ×3; J3010; A4216; G0378 ×8; J7050 ×2; J7040; J2405 ×9; J0461

== ENCOUNTER 2022-08-26 18:41 | Inpatient (IN) | payer OTHER ==
--- OUTSIDE RECORDS SUMMARY | 2022-08-26 18:52 | XMS REPORT | Continuity of Care Document ---
:1955 Author Organization [facility] t Address [facility] [place] [address] Care Team Providers Name Role Phone Alex BURROUGHS, Graham Mcnamara Primary Care Physician Dann Hernandez Attending Clinician Unavailable Forest Schmid Attending Clinician Unavailable Joaquín Myrick Attending Clinician Unavailable Alexandra Arrieta Attending Clinician Unavailable FAUSTO MORAES Attending Clinician Unavailable Adonis Gaytan Attending Clinician Unavailable Eugenio BURRUOGHS, Jose Keller Attending Clinician Benjie BURROUGHS, Reji Baldwin Attending Clinician Ce Knutson NP Attending Clinician CARSON IVERSON Attending Clinician Unavailable Yvan BURROUGHS, Jory Nguyen Attending Clinician [phone] Mao ARIAS, Corrina To Attending Clinician [phone] Doctor Unassigned, [place] Attending Clinician Unavailable Funmi Allen MA Attending [...] Number Effective Date Expiration Date S tacos TANESHA/FRANKI [id number] 2020 MCARE ADV 00:00:00 CHOICE PPO MEDICARE PART A [id number] 2020 \\T\\ B 00:00:00 [employer] MEDICARE 53 [id number] 2021 Common Sp rachelle 00:00:00 [facility] Problems Condition Condition Condition Status Onset Resolution Last Treating Co mments Source Name Details Category Date Date Treatment Clinician Date CKD CKD Disease Active Overview: Method i (chronic (chronic 5-10 Formattin kidney kidney 00:00: g of this Hospita disease), disease), 00 note l stage V stage V might be different from the original. Added automatic ally from request for surgery [id number] ESRD (end ESRD (end Disease Active 2019-07 Met hodi stage stage 1-05 st renal renal 00:00: Hospita disease) disease) 00 l on on dialysis dialysis [id number] Unsteady Problem Commo n gait [facility] - [facility] Arrhythmia Arrhythmia Problem C ommon [facility] [id number] Retinopath Problem Com mon y [facility] [id number] Seasonal Problem Comm on allergies Spirit - [facility] [id number] PUD Problem Common (peptic Spirit ulcer - CHI disease) [facility] [id number] Body mass Problem Com mon index Spirit [BMI] - [facility] 38.0-38.9, [facility] [id number] Diabetic Problem Comm on polyneurop Spirit athy - CHI associated St with type [facility] 2 diabetes Medica l mellitus Center [id number] Morbid Problem Commo n 9104 (severe) Spirit obesity - CHI due to [facility] [id number] Type 2 Problem Common diabetes Spirit mellitus - [facility]I with diabetic [facility] chronic Medical kidney Center disease Secondary Secondary Problem Com mon hyperparat hyperparat Sp rachelle hyroidism hyroidism, - C HI not St elsewhere [facility] Medica l [place] Athscl Athscl Problem Common [place] Spirit arteries arteries - [facility] Medical ulceration ulceration Ce nter Non-pressu Non-pressu Problem C ommon re chronic re chronic Sp rachelle ulcer of ulcer of - CHI other part other part St of right of right [facility] foot with foot with Medi jose unspecifie unspecifie Ce nter d severity d severity Chronic Chronic Problem Common congestive diastolic Spi rit heart CHF - CHI failure (congestiv [email or web address] heart [facility] failure) [facility] [id number] Stented Problem Commo n coronary Spirit artery - [facility] [id number] PAD Problem Common (periphera Spirit l artery - CHI disease) [facility] [id number] Coronary Problem Commo n artery Spirit disease - CHI involving [facility] coronary Medical artery of Center cabazon heart, unspecifie d whether angina present [id number] Oxygen Problem Commo n 07 dependent Spirit - [facility] [id number] Anemia in Problem Com mon chronic Spirit illness - [facility] Allergic Non-season Problem Com mon rhinitis al Spirit allergic - CHI rhinitis, unspecifie [facility] d Medical chronicity Center , unspecifie d trigger Dependence Dialysis Problem Com mon on renal patient Spirit dialysis - [facility] Anxiety Anxiety Problem Common about about Spirit health health - [facility] [id number] End stage Problem Comm on renal Spirit disease - [facility] Hypothyroi Hypothyroi Problem C ommon dism dism [facility] Cholelithi Gall Problem Commo n asis bladder Spirit without stones - [facility] obstructio [facility] Hypertensi Hypertensi Problem C ommon on on [facility] Type II Uncontroll Problem Comm on diabetes ed type 2 Spiri t mellitus diabetes - [facility] without mellitus St complicati with [facility] on insulin Medical therapy Center Mixed Mixed Problem Common hyperlipid hyperlipid Sp rachelle emia emia - [facility] Gastroesop GERD Problem Commo n hageal (gastroeso Spirit reflux phageal - [facility] disease reflux St disease) [facility] Vitamin D Vitamin D Problem Com mon deficiency deficiency Sp rachelle [facility] Carpal Carpal Problem Resolve 2021-08-25 Mem oria tunnel tunnel d 22:23:46 l syndrome syndrome Jacob n (disorder) (disorder) Resolved Problem 08/25/2021 1983 [facility] Problem Resolve 2021-08-25 Memoria delivery - delivery - d 22:23:46 l delivered delivered Herm joss (finding) (finding) Resolved Problem 08/25/2021 1985 [facility] Fistula of Fistula Problem Resolve [...] a ia 22:23:46 l (finding) (finding) Latoya joss Active Problem 08/25/2021 [facility] Paresthesi Paresthes Problem Active 2021-08-25 Memoria a of hand ia of hand 22:23:46 l (finding) (finding) Latoya joss Active Problem 08/25/2021 [facility] Tremor Tremor Problem Active 2021-08-25 Jairo frida (finding) (finding) 22:23:46 l Active [place] Problem 08/25/2021 [facility] Allergies, Adverse Reactions, Alerts Allergy Allergy Status Severity Reaction(s) Onset Inactive Treating Comm ents Source Name Type Date Date Clinician Keerthi Cruz Active Other (See Cold Me thodi zine ty to Comments) [address] adverse 00:00: and Hospita reaction 00 passing l s to out drug CODEINE DRUG Active Hallucinates 2019-0 Uni vers INGREDI 03-30 ity of 00:00: [place] 00 Medical Branch Codeine Propensi Active Hallucinatio 2019-0 U nivers ty to ns 03-30 ity of adverse 00:00: [place] reaction 00 Medical s Branch Adhesive Propensi Active Rash 2019-0 Method i Tape-Kendra ty to 5-12 st icones adverse 00:00: Hospita reaction 00 l s to drug Codeine Propensi Active Hallucinatio 2019-0 Other M ethodi ty to ns 5-12 reaction( st adverse 00:00: s): Hospita reaction 00 Anaphylax l s to is drug codeine DA Active U 2000-07 [facility] 08-06 Clear 00:00: Hernandez [facility] CODEINE DA Active U HALLUCINATIO 2000-07 [facility] N 08-06 Clear 00:00: Hernandez [facility] No Known DA Active U 2000-07 [facility] Contrast 08-06 Clear Allergie 00:00: Hernandez s [facility] No Known DA Active U 2000-07 [facility] Food 08-06 Clear Allergie 00:00: Hernandez s 00 [facility] No Known DA Active U 2000-07 [facility] Other 08-06 Clear Allergie 00:00: Hernandez s [facility] Opioids Propensi Active Rash Hallucina Meth deonte - ty to 6-17 tions ( st Morphine adverse 00:00: Aunts Hospita Analogue reaction 00 craw over l s s to body).Oth drug er reaction( s): Anaphylax ishalluci nations codeine codeine Active Memoria l [facility] Phenerga Phenerga Active Memori a n n l Lewis Tape Tape Active Memoria l Lewis NO KNOWN Drug Active Univers ALLERGIE Class ity of S [facility] prometha prometha Active Unknown Commo n zine zine [facility] codeine codeine Active Unknown Common [facility] Family History Family Member Diagnosis Comments Start Date Stop Date Source Natural father Heart disease [facility] Natural father Hypertension [facility] Natural father Th[facility] Natural mother [facility] Natural mother Hyperlipidemia [facility] Natural mother Hypertension [facility] Natural mother Kidney disease [facility] Social History Social Habit Start Date Stop Date Quantity Comments Source History of Tobacco Common Spirit - Use [facility] Exposure to Not sure [place] of SARS-CoV-2 (event) [facility] Alcohol intake 2022-04-27 2022-04-27 Current drinker Metho dist 00:00:00 00:00:00 of [facility] (finding) Cigarettes smoked 2022-04-26 2022-04-[address] current (pack per 00:00:00 00:00:00 Hospita l day) - Reported Cigarette 2022-04-26 2022-04-26 [facility] pack-[facility] 00:[facility]:00:00 Hospital Tobacco use and 2022-04-26 2022-04-26 Smokeless [facility] exposure 00:00:00 00:00:00 tobacco non-user Hospital Social History 2021-02-23 2021-02-23 [facility] ermann 20:24:04 20:24:04 Alcohol Comment 2020-03-23 2020-03-23 RARELY [facility] 00:00:00 00:00:00 Hospital Sex Assigned At [birth year] [facility] 00:00:00 00:[facility]:00 Hospital Smoking Status Start Date Stop Date Source Unknown if ever smoked Universit y [facility] Former Smoker 2022-08-11 00:00:00 2022-08-11 00:00:00 Common S pirit - [facility] Ce nter Never smoked tobacco [facility] Medications Ordered Filled Start Stop [...] :00 needed for l heartburn. famotidine 2021-07 No 40mg QD Take 40 mg Methodi (PEPCID) 10 0-19 10-[address] MG tablet 08:16: 00:00 nightly as H ospita 33 :00 needed for l heartburn. traMADoL 2021-07 No [id number] 50mg Q8H Take 1 Metho di (Ultram) 50 0-19 10-25 tablet (50 s t mg tablet 00:00: 04:59 mg total) Ho spita 00 :00 by mouth l every 8 (eight) hours as needed for moderate pain for up to 5 days .acute pain. traMADoL 2021-07- [place] [id number] 50mg Q8H Take 1 Metho di (Ultram) 50 0-19 10-25 tablet (50 s t mg tablet 00:00: 04:59 mg total) Ho spita 00 :00 by mouth l every 8 (eight) hours as needed for moderate pain for up to 5 days .acute pain. traMADoL 2021-07- [place] [id number] 50mg Q8H Take 1 Metho di (Ultram) [...] Hos tena 00 by mouth l nightly. famotidine 2021-07 Yes 40mg QD Take 1 Metho di (PEPCID) 40 0-02 tablet (40 st MG tablet 00:00: mg total) Hos tena 00 by mouth l nightly. famotidine 2021-07 [...] solution 00 times a l day. lactulose 2022-0 Yes Q.5D Take by Metho di (CHRONULAC) 9-[address] 10 gram/15 00:00: (two) Hospit a mL solution 00 times a l day. ciprofloxac 2021- No TAKE 1 Met hodi in HCl 9-13 10-[address] (CIPRO) 250 00:00: 00:00 MOUTH [facility] MG tablet 00 :00 TWICE l DAILY UNTIL ALL TAKEN. ciprofloxac 2021-0 2021- No TAKE 1 Met hodi in HCl 9-13 10-[address] (CIPRO) 250 00:00: 00:00 MOUTH [facility] MG tablet 00 :00 TWICE l DAILY UNTIL ALL TAKEN. ciprofloxac 2021-2021- No TAKE 1 Met hodi in HCl 9-13 10-[address] (CIPRO) 250 00:00: 00:00 MOUTH [facility] MG tablet 00 :00 TWICE l DAILY UNTIL ALL TAKEN. traMADoL 2021- [place] [id number] 50mg Q8H Take 1 Metho di (Ultram) 50 03-06-04 tablet (50 s t mg tablet 00:00: 04:59 mg total) Ho spita 00 :00 by mouth l every 8 (eight) hours as needed for moderate pain for up to 5 days .acute pain. traMADoL 2021- No [id number] 50mg Q8H Take 1 Metho di (Ultram) 50 03-06- tablet (50 s t mg tablet 00:00: 04:59 mg total) Ho spita 00 :00 by mouth l every 8 (eight) hours as needed for moderate pain for up to 5 days .acute pain. traMADoL 2021- No [id number] 50mg Q8H Take 1 Metho di (Ultram) 50 03-06 tablet (50 s t mg tablet 00:00: 04:59 mg total) Ho spita 00 :00 by mouth l every 8 (eight) hours as needed for moderate pain for up to 5 days .acute pain. ibuprofen 2021-0 Yes Methodi (ADVIL) 600 8-22 st MG tablet 00:00: Hospita 00 l ibuprofen 2-0 Yes Methodi (ADVIL) 600 8-22 st MG tablet 00:00: Hospita 00 l ibuprofen 2-0 Yes Methodi (ADVIL) 600 8-22 st MG tablet 00:00: Hospita 00 l amoxicillin 2021-0 2- No Metho di (AMOXIL) 8- 10-17 st 500 MG 00:00: 00:00 Hospita capsule 00 :00 l amoxicillin 2022-0 2022- No Metho di (AMOXIL) 8-22 10-17 st 500 MG 00:00: 00:00 Hospita capsule 00 :00 l amoxicillin 2-0 2022- No Metho di (AMOXIL) 8- 10-17 st 500 MG 00:00: 00:00 Hospita capsule 00 :00 l metOLazone 2-0 Yes Methodi (ZAROXOLYN) 7-21 st 5 MG tablet 00:00: Hospit a 00 l metOLazone 2-0 Yes Methodi (ZAROXOLYN) 7-21 st 5 MG tablet 00:00: Hospit a 00 l metOLazone 0 Yes Methodi (ZAROXOLYN) 7-21 st 5 MG tablet 00:00: Hospit a 00 l ciprofloxac 2021-0 2022- No 500mg QD Take 500 Methodi in HCl 6-06 06-[address] (CIPRO 15:13: 00:00 mouth Hospita ORAL) 12 :00 daily. For l 2 more days ciprofloxac 2021-0 2021- No 500mg QD Take 500 Methodi in HCl 6-06 06-[address] (CIPRO 15:13: 00:00 mouth Hospita ORAL) 12 :00 daily. For l 2 more days ciprofloxac 2021- No 500mg QD Take 500 Methodi in HCl 6-06 06-[address] (CIPRO 15:13: 00:00 mouth Hospita ORAL) 12 :00 daily. For l 2 more days busPIRone 2021-0 Yes Methodi (BUSPAR) 5 5-20 st MG tablet 00:00: Hospita 00 l busPIRone 2021-0 Yes Methodi (BUSPAR) 5 5-20 st MG tablet 00:00: Hospita 00 l busPIRone 2021-0 Yes Methodi (BUSPAR) 5 5-20 st MG tablet 00:00: Hospita 00 l psyllium 2021-0 Yes 3.4g Take 3.4 g Met hodi (METAMUCIL) 3-[address] 3.4 gram 00:00: Hospita packet 00 l psyllium 2021-0 Yes 3.4g Take 3.4 g Met hodi (METAMUCIL) 3-[address] 3.4 gram 00:00: Hospita packet 00 l psyllium 2021-0 Yes 3.4g Take 3.4 g Met hodi (METAMUCIL) 3-[address] 3.4 gram 00:00: Hospita packet 00 l Adult 2020-0 Yes 325 mg = 1 Memori a Aspirin 325 8-18 tab, PO, l mg oral 21:06: Daily, 0 Jacob n tablet 00 Refill(s) Adult 0 Yes 325 mg = 1 Memori a [...] Silver 8-18 0 l Ultra 20:29: Refill(s) [place] Claritin Yes 10 mg = 1 Jairo frida 8-18 tab, PO, l 20:29: Daily, PRN Lewis 00 Itching / rash / allergy symptoms, # 20 tab, 0 Refill(s) Stool Yes PO, Memoria Softener 8-18 Bedtime, 0 l with 20:29: Refill(s) [place] Laxative aspirin-ome No 1 tab, PO, Memoria prazole 325 8-18 Daily, 0 l mg-40 mg 20:29: Refill(s) Herm joss oral 00 delayed release tablet Centrum Yes PO, Daily, Jairo frida Silver 8-18 0 l Ultra 20:29: Refill(s) [place] Claritin Yes 10 mg = 1 Jairo frida 8-18 tab, PO, l 20:29: Daily, PRN [place] 00 Itching / rash / allergy symptoms, # 20 tab, 0 Refill(s) Stool Yes PO, Memoria Softener 8-18 Bedtime, 0 l with 20:29: Refill(s) [place] Laxative aspirin-ome No 1 tab, PO, Memoria prazole 325 8-18 Daily, 0 l mg-40 mg 20:29: Refill(s) Herm joss oral 00 delayed release tablet Centrum Yes PO, Daily, Jairo frida Silver 8-18 0 l Ultra 20:29: Refill(s) Claritin Yes 10 mg = 1 Jairo frida 8-18 tab, PO, l 20:29: Daily, PRN [place] 00 Itching / rash / allergy symptoms, [...] 8-18 0 l Ultra 20:29: Refill(s) [place] Claritin Yes 10 mg = 1 Jairo frida 8-18 tab, PO, l 20:29: Daily, PRN [place] 00 Itching / rash / allergy symptoms, # 20 tab, 0 Refill(s) Stool Yes PO, Memoria Softener 8-18 Bedtime, 0 l with 20:29: Refill(s) [place] Laxative cephalexin Yes 500 mg = 1 [...] tab, PO, l tablet 20:28: Daily, # [place] 00 90 tab, 0 Refill(s) Insulin Yes [...] tab, PO, l tablet 20:28: Daily, # [place] 00 90 tab, 0 Refill(s) Insulin Yes [...] tab, PO, l tablet 20:27: Daily, # [place] 00 90 tab, 1 Refill(s) Metoprolol Yes [...] Oral Tablet 00 tab, 0 Refill(s) levothyroxi 0 Yes 150 Memori a ne 150 mcg 8-18 microgram l (0.15 mg) 20:27: = 1 tab, Herm joss oral tablet 00 PO, Daily, # 30 tab, 0 Refill(s) lisinopril 2020-0 Yes 5 mg = 1 Mem oria 5 mg oral 8-18 tab, PO, l tablet 20:27: Daily, # Lewis 00 90 tab, 1 Refill(s) Metoprolol 0 Yes 25 mg = 1 Me moria Succinate 8-18 tab, PO, l ER 25 mg 20:27: Daily, # Macey nn oral 00 90 tab, 0 tablet, Refill(s) extended release tramadol 0 Yes 50 mg = 1 Jairo frida hydrochlori 8-18 tab, PO, l de 50 MG 20:27: BID, # 30 Herm joss Oral Tablet 00 tab, 0 Refill(s) levothyroxi 0 Yes 150 Memori a ne 150 mcg 8-18 microgram l (0.15 mg) 20:27: = 1 tab, Herm joss oral tablet 00 PO, Daily, # 30 tab, 0 Refill(s) lisinopril 2020-0 Yes 5 mg = 1 Mem oria 5 mg oral 8-18 tab, PO, l tablet 20:27: Daily, # [place] 00 90 tab, 1 Refill(s) Metoprolol 2020-0 Yes 25 mg = 1 Me moria Succinate 8-18 tab, PO, l ER 25 mg 20:27: Daily, # Macey nn oral 00 90 tab, 0 tablet, Refill(s) extended release tramadol 0 Yes 50 mg = 1 Jairo frida hydrochlori 8-18 tab, PO, l de 50 MG 20:27: BID, # 30 Herm joss Oral Tablet 00 tab, 0 Refill(s) levothyroxi 0 Yes 150 Memori a ne 150 mcg 8-18 microgram l (0.15 mg) 20:27: = 1 tab, Herm joss oral tablet 00 PO, Daily, # 30 tab, 0 Refill(s) lisinopril 2020-0 Yes 5 mg = 1 Mem oria [...] Until Branch Discontinu ed, Routine, Intra-op neomycin-po 0 Yes PRN, Univer s lymyxin-dex 10-14 Starting [...] Intra-op dexamethaso Yes PRN, Univer s ne 10-14 Starting ity of (DECADRON 17:26: [place] PHOSPHATE[place] 00 at 1226, Medic al injection Until Branch Discontinu ed, Routine, Intra-op ceFAZolin Yes PRN, Univers (ANCEF) 10-14 Starting ity of injection 17:25: [place] 00 [place] 1225, Medical Until Branch Discontinu ed, VIOLETTA, Intra-op balanced 0 Yes PRN, Univers salt soln 10-14 Starting ity of no.2 irrig. 17:25: [place] 10/14/20 [place] (BSS) 00 at 1225, Medical ophthalmic Until Branch solution Discontinu ed, Routine, Intra-op insulin Yes 30U inject 30 Unive rs lispro 4-08 Units ity of (HUMALOG 14:34: under the [facility] s DESTIN 02 skin 3 Medical KWIKPEN (three) Branch U-100) 100 times unit/mL daily. inph Insulin Yes 45U inject 45 Unive rs Glargine 4-08 Units ity of (LANTUS 14:34: under the [place] SOLOSTAR 02 skin 2 Medical U-100 (two) Branch INSULIN) times 100 unit/mL daily. (3 mL) injection amLODIPine Yes 10mg Take 10 mg U nivers 10 mg 4-08 by mouth ity of tablet 14:34: daily. [place] [facility] buPROPion Yes 150mg Take 150 [...] 4-08 by mouth ity of 14:34: daily. [place] [facility] metoprolol Yes 50mg Take 50 mg U nivers succinate 4-08 by mouth 2 ity of XL 50 mg 24 14:34: (two) [place] hr tablet 02 times Medical daily. Branch pantoprazol Yes 40mg Take 40 mg Univers e 40 mg EC 4-08 by mouth ity o f tablet 14:34: daily. [place] [facility] Levothyroxi Yes 150ug Take 150 U nivers ne 100 mcg 4-08 mcg by ity of capsule 14:34: mouth [place] 02 daily. Medical Branch aspirin 325 Yes 325mg Take 325 U nivers mg tablet 4-08 mg by ity of 14:34: mouth [place] 02 daily. Medical Branch Cholecalcif Yes Take by Uni vers daryl, 4-08 mouth. ity of Vitamin D3, 14:34: [place] (VITAMIN 02 Medical D3) 25 mcg Branch (1,000 unit) [...] Units ity of (HUMALOG 09:34: [place] the [place] DESTIN 02 skin 3 Medical KWIKPEN (three) Branch U-100) 100 times unit/mL daily. inph Insulin Yes 45U inject 45 Unive rs Glargine 4-08 Units ity of (LANTUS 09:34: under the [place] SOLOSTAR 02 skin 2 Medical U-100 (two) Branch INSULIN) times 100 unit/mL daily. (3 mL) injection amLODIPine Yes 10mg Take 10 mg U nivers 10 mg 4-08 by mouth ity of tablet 09:34: daily. [address] Branch buPROPion Yes 150mg Take 150 Uni vers SR 150 mg 4-08 mg by ity of SR tablet 09:34: mouth daily. Medical Branch furosemide Yes 160mg Take 160 Un hellen 80 mg 4-08 mg by ity of tablet 09:34: mouth daily. [facility] Branch lisinopriL Yes 5mg Take 5 mg Un hellen 5 mg tablet 4-08 by mouth ity of 09:34: daily. [address] Branch metoprolol Yes 50mg Take 50 mg U nivers succinate 4-08 by mouth 2 ity of XL 50 mg 24 09:34: (two) [place] hr tablet 02 times Medical daily. Branch pantoprazol Yes 40mg Take 40 mg Univers e 40 mg EC 4-08 by mouth ity o f tablet 09:34: daily. [place] 02 Medical Branch Levothyroxi Yes 150ug Take 150 U nivers ne 100 mcg 4-08 mcg by ity of capsule 09:34: mouth [place] daily. Medical Branch aspirin 325 Yes 325mg Take 325 U nivers mg tablet 4-08 mg by ity of 09:34: mouth [place] daily. Medical Branch Cholecalcif Yes Take by Uni vers daryl, 4-08 mouth. ity of Vitamin D3, 09:34: [place] (VITAMIN [facility] D3) 25 mcg Branch (1,000 unit) capsule folic Yes Take by Univers acid/multiv 4-08 mouth ity of it-min/lute 09:34: [place]. [place] (CENTRUM 02 [facility] SILVER Branch ORAL) insulin 2020- Yes 30U [id number] Inject 30 Methodi lispro 1-[id number] (HumaLOG 00:00: 3D under the [facility]osp [facility] U-100 00 skin 3 l Insulin) (three) 100 unit/mL times a injection day before meals. insulin 2020-1 Yes 30U [id number] Inject 30 Methodi lispro 1-[id number] (HumaLOG 00:00: 3D under the [facility] U-100 00 skin 3 l Insulin) (three) 100 unit/mL times a injection day before meals. insulin 2020-1 Yes 30U [id number] Inject 30 Methodi lispro 1-[id number] (HumaLOG 00:00: 3D under the [facility] U-100 00 skin 3 l Insulin) (three) 100 unit/mL times a injection day before meals. insulin 2020-0 Yes 30U inject 30 Unive rs lispro 9-24 Units ity of (HUMALOG 16:37: under the [place] DESTIN 58 skin 3 Medical KWIKPEN (three) Branch U-100) 100 times unit/mL daily. inph Insulin 2019-0 Yes 45U inject 45 Unive rs Glargine 9-24 Units ity of (LANTUS 16:37: under the [place] SOLOSTAR 58 skin 2 Medical U-100 (two) Branch INSULIN) times 100 unit/mL daily. (3 mL) injection amLODIPine 2020-0 Yes 10mg Take 10 mg U nivers 10 mg 9-24 by mouth ity of tablet 16:37: daily. [place] [address] Medical Branch buPROPion 2020-0 Yes 150mg Take [...] by mouth ity of tablet 16:37: daily. [place] [address] Medical Branch metoprolol 2020-0 Yes 50mg Take 50 mg U nivers succinate 9-24 by mouth 2 ity of XL 50 mg 24 16:37: (two) [place] hr tablet 58 times Medical daily. Branch pantoprazol 2020-0 Yes 40mg Take 40 mg Univers e 40 mg EC 9-24 by mouth ity o f tablet 16:37: daily. [place] [address] Medical Branch Levothyroxi 2020-0 Yes 150ug Take [...] 9-24 mouth. ity of Vitamin D3, 16:37: [place] (VITAMIN [address] [place] [address] D3) 25 mcg Branch (1,000 unit) capsule folic 2020-0 Yes Take by Univers acid/multiv 9-24 mouth ity of it-min/lute 16:37: [place]. [place] (CENTRUM 58 Medical SILVER Branch ORAL) insulin 2020-0 Yes 30U inject 30 Unive rs lispro 9-24 Units ity of (HUMALOG 16:37: [facility] DE[facility] skin 3 Medical KWIKPEN (three) Branch U-100) 100 times unit/mL daily. inph Insulin 2020-0 Yes 45U inject 45 Unive rs Glargine 9-24 Units ity of (LANTUS 16:37: under the [place] SOLOSTAR 58 skin 2 Medical U-100 (two) Branch INSULIN) times 100 unit/mL daily. (3 mL) injection amLODIPine 2020-0 Yes 10mg Take 10 mg U nivers 10 mg 9-24 by mouth ity of tablet 16:37: daily. [place] [address] Medical Branch buPROPion 2020-0 Yes 150mg Take [...] by mouth ity of tablet 16:37: daily. [place] [address] Medical Branch metoprolol 2020-0 Yes 50mg Take 50 mg U nivers succinate 9-24 by mouth 2 ity of XL 50 mg 24 16:37: (two) [place] hr tablet 58 times Medical daily. Branch pantoprazol 2020-0 Yes 40mg Take 40 mg Univers e 40 mg EC 9-24 by mouth ity o f tablet 16:37: daily. [place] [address] Medical Branch Levothyroxi 2020-0 Yes 150ug Take [...] 9-24 mouth. ity of Vitamin D3, 16:37: [place] (VITAMIN [address] [place] [address] D3) 25 mcg Branch (1,000 unit) capsule folic 2020-0 Yes Take by Univers acid/multiv 9-24 mouth ity of it-min/lute 16:37: [place]. [place] (CENTRUM 58 Medical SILVER Branch ORAL) insulin 2020-0 Yes 30U inject 30 Unive rs lispro 9-24 Units ity of (HUMALOG 16:37: [facility] DE[facility] skin 3 Medical KWIKPEN (three) Branch U-100) 100 times unit/mL daily. inph Insulin 2020-0 Yes 45U inject 45 Unive rs Glargine 9-24 Units ity of (LANTUS 16:37: under the [place] SOLOSTAR 58 skin 2 Medical U-100 (two) Branch INSULIN) times 100 unit/mL daily. (3 mL) injection amLODIPine 2020-0 Yes 10mg Take 10 mg U nivers 10 mg 9-24 by mouth ity of tablet 16:37: daily. [place] [address] [facility] buPROPion 2020-0 Yes 150mg Take [...] by mouth ity of tablet 16:37: daily. [place] [address] [facility] metoprolol 2020-0 Yes 50mg Take 50 mg U nivers succinate 9-24 by mouth 2 ity of XL 50 mg 24 16:37: (two) [place] hr tablet 58 times Medical daily. Branch pantoprazol 2020-0 Yes 40mg Take 40 mg Univers e 40 mg EC 9-24 by mouth ity o f tablet 16:37: daily. [place] [address] [facility] Levothyroxi 2020-0 Yes 150ug Take [...] 9-24 mouth. ity of Vitamin D3, 16:37: [place] (VITAMIN [address] [place] [address] D3) 25 mcg Branch (1,000 unit) capsule folic 2020-0 Yes Take by Univers acid/multiv 9-24 mouth ity of it-min/lute 16:37: [place] (CENTRUM 58 Medical SILVER Branch ORAL) insulin 2020-0 Yes 30U inject 30 Unive rs lispro 9-24 Units ity of (HUMALOG 16:37: [place] DESTIN 58 skin 3 Medical KWIKPEN (three) Branch U-100) 100 times unit/mL daily. inph Insulin 2020-0 Yes 45U inject 45 Unive rs Glargine 9-24 Units ity of (LANTUS 16:37: under the [place] SOLOSTAR 58 skin 2 Medical U-100 (two) Branch INSULIN) times 100 unit/mL daily. (3 mL) injection amLODIPine 2020-0 Yes 10mg Take 10 mg U nivers 10 mg 9-24 by mouth ity of tablet 16:37: daily. [place] [address] [facility] buPROPion 2020-0 Yes 150mg Take [...] by mouth ity of tablet 16:37: daily. [place] [address] [facility] metoprolol 2020-0 Yes 50mg Take 50 mg U nivers succinate 9-24 by mouth 2 ity of XL 50 mg 24 16:37: (two) [place] hr tablet 58 times Medical daily. Branch pantoprazol 2020-0 Yes 40mg Take 40 mg Univers e 40 mg EC 9-24 by mouth ity o f tablet 16:37: daily. [place] [address] [facility] Levothyroxi 2020-0 Yes 150ug Take [...] 9-24 mouth. ity of Vitamin D3, 16:37: [place] (VITAMIN [address] [place] [address] D3) 25 mcg Branch (1,000 unit) capsule folic 2020-0 Yes Take by Univers acid/multiv 9-24 mouth ity of it-min/lute 16:37: [place]. [place] (CENTRUM 58 Medical SILVER Branch ORAL) insulin 2020-0 Yes 30U inject 30 Unive rs lispro 9-24 Units ity of (HUMALOG 13:50: [place] DESTIN 18 skin 3 Medical KWIKPEN (three) Branch U-100) 100 times unit/mL daily. inph Insulin 2020-0 Yes 45U inject 45 Unive rs Glargine 9-24 Units ity of (LANTUS 13:50: under the [place] SOLOSTAR 18 skin 2 Medical U-100 (two) Branch INSULIN) times 100 unit/mL daily. (3 mL) injection amLODIPine 2020-0 Yes 10mg Take 10 mg U nivers 10 mg 9-24 by mouth ity of tablet 13:50: daily. [place] [address] [facility] Branch buPROPion 2020-0 Yes 150mg Take [...] by mouth ity of tablet 13:50: daily. [place] [address] [facility] Branch metoprolol 2020-0 Yes 50mg Take 50 mg U nivers succinate 9-24 by mouth 2 ity of XL 50 mg 24 13:50: (two) [place] hr tablet 18 times Medical daily. Branch pantoprazol 2020-0 Yes 40mg Take 40 mg Univers e 40 mg EC 9-24 by mouth ity o f tablet 13:50: daily. [place] [address] [facility] Branch Levothyroxi 2020-0 Yes 150ug Take [...] 9-24 mouth. ity of Vitamin D3, 13:50: [place] (VITAMIN [address] [place] [address] D3) 25 mcg Branch (1,000 unit) capsule folic 2020-0 Yes Take by Univers acid/multiv 9-24 mouth ity of it-min/lute 13:50: [place]. [place] (CENTRUM 18 Medical SILVER Branch ORAL) insulin 2020-0 Yes 30U inject 30 Unive rs lispro 9-24 Units ity of (HUMALOG 13:50: [place] DESTIN 18 skin 3 Medical KWIKPEN (three) Branch U-100) 100 times unit/mL daily. inph Insulin 2020-0 Yes 45U inject 45 Unive rs Glargine 9-24 Units ity of (LANTUS 13:50: under the [place] SOLOSTAR 18 skin 2 Medical U-100 (two) Branch INSULIN) times 100 unit/mL daily. (3 mL) injection amLODIPine 2020-0 Yes 10mg Take 10 mg U nivers 10 mg 9-24 by mouth ity of tablet 13:50: daily. [place] [address] [facility] buPROPion 2020-0 Yes 150mg Take [...] by mouth ity of tablet 13:50: daily. [place] [address] [facility] Branch metoprolol 2020-0 Yes 50mg Take 50 mg U nivers succinate 9-24 by mouth 2 ity of XL 50 mg 24 13:50: (two) [place] hr tablet 18 times Medical daily. Branch pantoprazol 2020-0 Yes 40mg Take 40 mg Univers e 40 mg EC 9-24 by mouth ity o f tablet 13:50: daily. [place] [address] [facility] Branch Levothyroxi 2020-0 Yes 150ug Take [...] 9-24 mouth. ity of Vitamin D3, 13:50: [place] (VITAMIN [address] [place] [address] D3) 25 mcg Branch (1,000 unit) capsule [...] [place] 00 :17 PROCEDURE, Medical Starting Branch [facility] 04/01/20 at 0804, Until [place] 04/01/20 at 0833, Routine, Intra-op propofoL IV 2020-0 2020- No Intravenou Univers infusion 04-01 s, ONCE ity of 13:04: 13:33 INTRA [place] 00 :17 PROCEDURE, Medical Starting Branch [facility] 04/01/20 at 0804, Until [place] 04/01/20 at 0833, Routine, Intra-op lidocaine 2020-0 2020- No ONCE INTRA U nivers 1% 04-01 PROCEDURE, ity of (XYLOCAINE) 13:02: 13:33 Starting [place] 100 mg/10 00 :17 [place] Medical mL (1 %) 04/01/20 at Bran h injection 0802, Until [place] 04/01/20 at 0833, Routine, Intra-op remifentani 2020-0 2020- No Intravenou Univers L (ULTIVA) 04-01 s, ONCE ity o f injection 13:02: 13:33 INTRA [place] 00 :17 PROCEDURE, Medical Starting Branch [facility] 04/01/20 at 0802, Until Krystle [...] [place] 00 :17 PROCEDURE, Medical Starting Branch [facility] 04/01/20 at 0802, Until [place] 04/01/20 at 0833, Routine, Intra-op lactated 2020-0 2020- No IV Univers ringers IV 04-01 Infusion, ity of infusion 13:01: 13:33 [place]OUS [place] :[place] PRN, Medical Starting [facility] 04/01/20 at 0801, Until [facility] 04/01/20 at 0833, Routine, Intra-op lactated 2020-0 2020- No IV Univers ringers IV 04-01 Infusion, ity of infusion 13:01: 13:33 [place]OUS [place] :[place] PRN, Medical Starting Branch [facility] 04/01/20 at 0801, Until [place] 04/01/20 at 0833, Routine, Intra-op tetracaine 2020-0 Yes PRN, Univers (PONTOCAINE 04-01 Starting ity of ) 0.5 % 12:53: [place] ophthalmic 04/01/20 at [facility] ica drops [address] [place] [address] Until Discontinu ed, Routine, Intra-op water for 2020-0 Yes PRN, Univers irrigation 04-01 Starting ity o f irrigation 12:53: [place] solution 04/01/[address] Until Discontinu ed, Routine, Intra-op NaCl 0.9% 2020-0 Yes PRN, Univers (NS) 04-01 Starting ity of injection 12:52: [facility] 04/01/[address] Until Discontinu ed, Routine, Intra-op neomycin-po 2020-0 Yes PRN, Univer s lymyxin-dex 04-01 Starting ity of amethasone 12:52: [place] (MAXITROL) 04/01/[address] [facility] [address] [place] [address] mg/g-10,000 Until unit/g-0.1 Discontinu % ed, ophthalmic Routine, ointment Intra-op gentamicin 2020-0 Yes PRN, Univers injection 04-01 Starting ity of 12:52: [facility] 04/01/[address] Until Discontinu ed, VIOLETTA, Intra-op eye block 2020-0 Yes PRN, Univers syringe 11 04-01 Starting ity o f mL 12:51: [facility] 04/01/[address] Until Discontinu ed, Intra-op EPINEPHrine 2020-0 Yes PRN, Univer s (PF) 04-01 Starting ity of 1:1,000 (1 12:51: [place] mg/mL) 00 04/01/20 at [facility] (ADRENALIN 0751, [place] (PF)) Until injection Discontinu ed, Routine, Intra-op DUOVISC 2020-0 Yes PRN, Univers (DUOVISC 04-01 Starting ity of VISCO 12:51: [place] ELASTIC) 3 00 04/01/20 at [facility] ical %-4 %(0.5 0751, [place] mL) 1 % Until (0.55 mL) Discontinu intraocular ed, injection Routine, Intra-op dexamethaso 2020-0 Yes PRN, Univer s ne 04-01 Starting ity of (DECADRON 12:50: [place] PHOSPHATE) 00 04/01/20 at [facility] ical injection 0750, [place] Until Discontinu ed, Routine, Intra-op ceFAZolin 2020-0 Yes PRN, Univers (ANCEF) 04-01 Starting ity of injection 12:50: [place] 00 04/01/20 at [facility] 0750, [place] Until Discontinu ed, VIOLETTA, Intra-op balanced 2020-0 Yes PRN, Univers salt soln 04-01 Starting ity of no.2 irrig. 12:49: [place] (BSS) 00 04/01/20 at [facility] ophthalmic 0749, [place] solution Until Discontinu ed, Routine, Intra-op lactated 2020-0 2020- No 1000mL at 20 [facility] rs ringers IV 04-01 mL/hr, ity of infusion 12:00: 12:17 1,000 mL, [place] 1,000 mL 00 :00 IV Medical Infusion, [place] ONCE, 1 dose, [place] 04/01/20 at 0700, Routine, DSU Pre-op mydriatic 2020-0 2020- No .5mL 0.5 mL, [facility] ers #5 04-01 Left Eye, ity of ophthalmic 12:00: 12:16 ONCE, 1 [place] solution 00 :00 dose, [place] Medica l 0.5 mL 04/01/20 at [place] syringe 0700, Routine Lantus 2020-0 Yes 45U [...] Q.5D Take 50 mg M ethodi succinate 9-[address] XL 00:00: (two) [facility]osp[facility] (TOPROL-XL) 00 times a l 25 mg 24 hr day. tablet metoprolol 2020-0 Yes 50mg Q.5D Take 50 mg M ethodi succinate 9-[address] XL 00:00: (two) [facility]ospita (TOPROL-XL) 00 times a l 25 mg 24 hr day. tablet metoprolol 2020-0 Yes 50mg Q.5D Take 50 mg M ethodi succinate 9-[address] XL 00:00: (two) [...] every l morning. Insulin Insulin No Insulin Glargine Glargine Glargine 100 UNIT/ML 100 UNIT/ML 100 UNIT/ML buPROPion buPROPion No 1{table QD buPROPion HCl ER (SR) HCl ER (SR) t_in_th HCl ER 150 MG 150 MG e_morni (SR) 150 ng} MG Cholecalcif Cholecalcif No 1{capsu QD Cholecalci daryl 50 MCG darly 50 MCG le} ferol 50 (1999) (1999) [...] 90 MG 90 MG t} 90 MG Atorvastati Atorvastati No Atorvastat n Calcium n Calcium in Calcium 40 MG 40 MG 40 MG Pantoprazol Pantoprazol No 1{table QD Pantoprazo e Sodium 40 e Sodium 40 t} le Sodium MG MG 40 MG Loratadine Loratadine No 1{table QD Loratadine 10 MG 10 MG t} 10 MG Midodrine Midodrine No BID Midodrine HCl 5 MG HCl 5 MG HCl 5 MG busPIRone busPIRone No 1{table BID busPIRone HCl 5 MG HCl 5 MG t} HCl 5 MG Calcitriol Calcitriol No 1{capsu QD Calcitriol 0.25 MCG 0.25 MCG le} 0.25 MCG Clopidogrel Clopidogrel No 1{table QD Clopidogre Bisulfate Bisulfate t} l 75 MG 75 MG Bisulfate 75 MG Insulin Insulin No Insulin Glargine Glargine Glargine 100 UNIT/ML 100 UNIT/ML 100 UNIT/ML Insulin Insulin No Insulin Lispro 100 Lispro 100 Lispro 100 UNIT/ML UNIT/ML UNIT/ML Aspirin 81 Aspirin 81 No 1{table QD Aspirin 81 81 MG 81 MG t} 81 MG Atorvastati Atorvastati No 1{table QD Atorvastat n Calcium n Calcium t} in Calcium 40 MG 40 MG 40 MG Levothyroxi Levothyroxi No QD Levothyrox ne Sodium ne Sodium ine Sodium 150 MCG 150 MCG 150 MCG Cholecalcif Cholecalcif No 1{capsu QD Cholecalci daryl 50 MCG daryl 50 MCG le} ferol 50 (1999) (1999) MCG (1999) Metoprolol Metoprolol No Metoprolol Tartrate 25 Tartrate 25 Tartrate MG MG 25 MG Sevelamer Sevelamer No 1{table TID Sevelamer Carbonate Carbonate t_with_ Carbonate 800 MG 800 MG meals} 800 MG buPROPion buPROPion No 1{table QD buPROPion HCl ER (SR) HCl ER (SR) t_in_th HCl ER 150 MG 150 MG e_morni (SR) 150 ng} MG Pantoprazol Pantoprazol No 1{table QD Pantoprazo [...] buPROPion HCl ER (SR) HCl ER (SR) t_in HCl ER 150 MG 150 MG e_morni [...] GM t_on_ 1 GM _empty_ stomach } Levothyroxi Levothyroxi [...] 80 MG 80 MG t} 80 MG Immunizations Ordered Immunization Filled Immunization Date Status Commen ts Source Name Name ARIADNE DONALDSON-Janay [facility] 2021-07-27 Completed Meth odist VACCINATION 00:00:00 [facility] ARIADNE COVID-19 MRNA 2021-07-27 Completed Meth odist VACCINATION 00:00:00 [facility] ARIADNE COVID-Janay MRNA 2021-07-27 Completed Meth odist VACCINATION 00:00:00 [facility] ARIADNE MARTID-19 MRNA 2021-02-25 Completed Meth odist VACCINATION 00:00:00 [facility] ARIADNE MARTID-19 MRNA 2021-02-25 Completed Meth odist VACCINATION 00:00:00 [facility] BARRONID-Janay MRNA 2021-02-25 Completed Meth odist VACCINATION 00:00:00 [facility] ARIADNE MARTID-Janay [facility] 2021-01-06 Completed Meth odist VACCINATION 00:00:00 [facility] PFIZER COVID-19 MRNA 2021-01-06 Completed Meth odist VACCINATION 00:00:00 [facility] PFIZER COVID-19 MRNA 2021-01-06 Completed Meth odist VACCINATION 00:00:00 Hospital Vital Signs Vital Name Observation Time Observation Value Comments Source height 2022-08-15 10:20:00 66.0 [in_i] Common [facility] weight 2022-08-15 10:20:00 224.4 [lb_av] [facility] temperature 2022-08-15 10:20:00 97.0 [degF] [facility] bmi 2022-08-15 10:20:00 36.22 kg/m2 [facility] oximetry 2022-08-15 10:20:00 96 % [facility] respiratory rate 2022-08-15 10:20:00 17 /min Comm [facility] blood pressure 2022-08-15 10:20:00 131 mm[Hg] Common [facility] - systolic [facility] blood pressure 2022-08-15 10:20:00 72 mm[Hg] Common [facility] - diastolic [facility] height 2022-02-27 11:20:00 66.0 [in_i] [facility] weight 2022-02-27 11:20:00 236.6 [lb_av] [facility] temperature 2022-02-27 11:20:00 97.2 [degF] [facility] bmi 2022-02-27 11:20:00 38.18 kg/m2 [facility] oximetry 2022-02-27 11:20:00 94 % [facility] respiratory rate 2022-02-27 11:20:00 16 /min Comm on [facility] blood pressure 2022-02-27 11:20:00 138 mm[Hg] Common [facility] - systolic [facility] blood pressure 2022-02-27 11:20:00 76 mm[Hg] Common [facility] - diastolic [facility] height 2022-02-27 11:00:00 66.0 [in_i] [facility] weight 2022-02-27 11:00:00 236.6 [lb_av] [facility] temperature 2022-02-27 11:00:00 97.2 [degF] Common [facility] bmi 2022-02-27 11:00:00 38.18 kg/m2 [facility] oximetry 2022-02-27 11:00:00 93 % [facility] respiratory rate 2022-02-27 11:00:00 16 /min Comm [facility] blood pressure 2022-02-27 11:00:00 138 mm[Hg] Common [facility] - systolic [facility] blood pressure 2022-02-27 11:00:00 76 mm[Hg] [facility] diastolic [facility] Systolic blood 2020-10-14 14:10:00 120 mm[Hg] Univer sity of pressure [facility] Diastolic blood 2020-10-14 14:10:00 65 mm[Hg] Unive rsity of [facility] Heart rate 2020-10-14 14:10:00 81 /min [facility] Body temperature 2020-10-14 14:10:00 36.06 Katharina [facility] 2020-10-14 14:10:00 13 /min [facility] Oxygen saturation in 2020-10-14 14:10:00 99 /min [facility] Arterial blood by [facility] Pulse oximetry Branch Body height 2020-10-01 18:42:00 167.6 cm [facility] Body weight 2020-10-01 18:42:00 108.4 kg [facility] BMI 2020-10-01 18:42:00 38.59 kg/m2 [facility] Systolic blood 2020-10-14 14:10:00 120 mm[Hg] Univer sity of [facility] Diastolic blood 2020-10-14 14:10:00 65 mm[Hg] Unive rsity of pressure [place] [facility] Heart rate 2020-10-14 14:10:00 81 /min [facility] [place] [facility] Body temperature 2020-10-14 14:10:00 36.06 Katharina Univ ersity [facility] [place] [facility] Respiratory rate 2020-10-14 14:10:00 13 /min Univ ers[facility] [place] [facility] Oxygen saturation in 2020-10-14 14:10:00 99 /min University of Arterial blood by [facility] jose Pulse oximetry Branch Body height 2020-10-01 18:42:00 167.6 cm [facility] [place] [facility] Body weight 2020-10-01 18:42:00 108.4 kg [facility] [place] [facility] BMI 2020-10-01 18:42:00 38.59 kg/m2 [facility] [place] [facility] Systolic blood 2020-04-01 13:55:00 113 mm[Hg] Univer sity of pressure [place] [facility] Diastolic blood 2020-04-01 13:55:00 56 mm[Hg] Unive rsity of pressure [place] [facility] Heart rate 2020-04-01 13:55:00 63 /min [facility] [place] [facility] Body temperature 2020-04-01 13:55:00 36.11 Katharina Univ ersity [facility] [place] [facility] Oxygen saturation in 2020-04-01 13:50:00 100 /min University of Arterial blood by [facility] Pulse oximetry Branch Respiratory rate 2020-04-01 13:45:00 18 /min Univ ers[facility] [place] [facility] Body height 2020-03-30 17:15:00 167.6 cm [facility] [place] [facility] Body weight 2020-03-30 17:15:00 108.41 kg [facility] [place] [facility] BMI 2020-03-30 17:15:00 38.58 kg/m2 [facility] [place] [facility] Systolic blood 2020-04-01 13:55:00 113 mm[Hg] Univer sity of pressure [place] [facility] Diastolic blood 2020-04-01 13:55:00 56 mm[Hg] Unive rsity of pressure [place] [facility] Heart rate 2020-04-01 13:55:00 63 /min [facility] [place] [facility] Body temperature 2020-04-01 13:55:00 36.11 Katharina [facility] Oxygen saturation in 2020-04-01 13:50:00 100 /min [facility] Arterial blood by [facility] Pulse oximetry [place] Respiratory rate 2020-04-01 13:45:00 18 /min [facility] Body height 2020-03-30 17:15:00 167.6 cm [facility] Body weight 2020-03-30 17:15:00 108.41 kg [facility] BMI 2020-03-30 17:15:00 38.58 kg/m2 [facility] Respiratory rate 2020-04-01 13:32:00 18 /min [facility] Respiratory rate 2020-04-01 13:32:00 18 /min [facility] Heart rate 2022-04-26 17:30:00 76 /min [facility] Oxygen saturation in 2022-04-26 17:30:00 93 /min [facility] Arterial blood by Pulse oximetry Systolic blood 2022-04-26 17:20:00 139 mm[Hg] Method ist [facility] pressure Diastolic blood 2022-04-26 17:20:00 67 mm[Hg] [facility] pressure Respiratory rate 2022-04-26 17:20:00 16 /min [facility] Body temperature 2022-04-26 17:00:00 36.44 Katharina [facility] Body height 2022-04-24 17:06:00 167.6 cm [facility] Body weight 2022-04-24 17:06:00 110.224 kg [facility] BMI 2022-04-24 17:06:00 39.22 kg/m2 [facility] Systolic (mm Hg) 2021-02-23 20:05:00 Jairo marko [place] Diastolic (mm Hg) 2021-02-23 20:05:00 Anita ma [place] Heart Rate 2021-02-23 20:05:00 [facility] Respitory Rate 2021-02-23 20:05:00 Sriram Larkin Height 2021-02-23 20:05:00 162.56 cm [facility] Weight 2021-02-23 20:05:00 [facility] BMI Calculated 2021-02-23 20:05:00 Sriram Larkin Procedures Procedure Date / Time Performing Source Performed Clinician [id number] 2022-07-06 [facility] 00:00:00 [facility] [id number] 2022-07-04 [facility] 00:00:00 [facility] [id number] 2022-07-01 [facility] 00:00:00 [facility] [id number] 2022-06-29 [facility] 00:00:00 [facility] [id number] 2022-06-28 [facility] 00:00:00 [facility] [id number] 2022-06-27 [facility] 00:00:00 [facility] [id number] 2022-06-27 [facility] 00:00:00 [facility] [id number] 2022-06-27 [facility] 00:00:00 [facility] [id number] 2022-06-27 [facility] 00:00:00 [facility] [id number] 2022-06-26 [facility] 00:00:00 [facility] [id number] 2022-06-26 [facility] 00:00:00 [facility] [id number] 2022-06-26 [facility] 00:00:00 [facility] [id number] 2022-06-26 [facility] 00:00:00 [facility] [id number] 2022-06-26 [facility] 00:00:00 [facility] [id number] 2022-06-24 [facility] 00:00:00 [facility] [id number] 2022-06-23 [facility] 00:00:00 [facility] [id number] 2022-06-22 [facility] 00:00:00 [facility] POC GLUCOSE 2022-04-26 Jose Becker 16:04:00 E. GA AN ELECTIVE ENDOTRACHEAL 2022-04-26 [facility] Mariely [facility] AIRWAY 15:12:00 LAPAROSCOPIC REMOVAL OR 2022-04-26 Jose Becker [facility] REPOSITIONING OF PERITONEAL 14:56:00 E. DIALYSIS CATHETER ESTIMATED GFR 2022-04-26 Jose Becker pital 13:00:00 E. POC PANEL 2022-04-26 [facility] pital 13:00:00 E. POC GLUCOSE 2022-03-06 [facility] pital 16:00:00 E. SURGICAL PATHOLOGY REQUEST 2022-03-06 [facility] 15:28:00 E. POC GLUCOSE 2022-03-06 [facility] 15:23:00 E. ANESTHESIA INTUBATION 2022-03-06 [facility] 12:57:00 CHOLECYSTECTOMY, LAPAROSCOPIC 2022-03-06 [facility] 12:44:00 E. INSERTION, CATHETER, 2022-03-06 [facility] DIALYSIS, PERITONEAL, 12:44:00 E. LAPAROSCOPIC ESTIMATED GFR 2022-03-06 [facility] 11:50:00 E. POC PANEL 2022-03-06 [facility] 11:50:00 E. BASIC METABOLIC PANEL 2022-03-06 [facility] 11:40:00 ESTIMATED GFR 2022-03-06 [facility] 11:40:00 CBC WITH PLATELET AND 2022-03-01 [facility] DIFFERENTIAL 18:18:00 HEMOGLOBIN A1C 2022-03-01 [facility] 18:18:00 PARTIAL THROMBOPLASTIN TIME 2022-03-01 [facility] (PTT) 18:18:00 PROTHROMBIN TIME WITH INR 2022-03-01 [facility] 18:18:00 REFERRAL- REQUEST/RESPONSE 2022-02-07 Doctor Unassigned, [facility] [place] 05:01:00 [facility] ECG PRE/POST OP 2021-12-12 [facility] 20:54:02 CBC WITH PLATELET AND 2021-12-12 [facility] DIFFERENTIAL 20:25:00 HEMOGLOBIN A1C 2021-12-12 [facility]ich[facility] 20:25:00 TYPE AND SCREEN 2021-12-12 [facility] 20:25:00 PHACOEMULSIFICATION OF 2020-10-14 Fausto Moraes [facility] CATARACT WITH INTRAOCULAR 13:33:00 [facility] LENS IMPLANT POCT GLUCOSE (AUTOMATED) 2020-10-14 [facility] 12:38:00 [facility] POCT GLUCOSE(AGE >30DAYS) 2020-10-14 Anita Edwards [facility] 12:35:00 Medical Branch ASSIGNMENT OF BENEFITS 2020-10-12 Doctor Unassigned, [facility] 16:32:53 [facility] POCT GLUCOSE(AGE >30DAYS) 2020-04-01 Bora Skinner [facility] 12:03:00 Medical Branch ASSIGNMENT OF BENEFITS 2020-03-30 Doctor Unassigned, [facility] 16:01:28 [facility] NOTICE OF BILLING PRACTICES 2020-03-23 Doctor Unassigned, [facility] FOR MEDICARE PATIENTS 20:49:43 [place] [facility] PATIENT FINANCIAL POLICY 2020-03-23 Doctor Unassigned, [facility] 20:49:19 [facility] NO SHOW OR MISSED APPOINTMENT 2020-03-23 Doctor Unassigned, [facility] POLICY ACKNOWLEDGEMENT 20:48:59 [place] [facility] NOTICE OF PRIVACY PRACTICES 2020-03-23 Doctor Unassigned, [facility] 20:48:48 [facility] CONSENT/REFUSAL FOR DIAGNOSIS 2020-03-23 Doctor Unassigned, [facility] AND TREATMENT 20:48:30 [facility] ASSIGNMENT OF BENEFITS 2020-03-23 Doctor Unassigned, [facility] 20:48:19 [facility] PHYSICIAN ORDERS 2020-03-23 Doctor Unassigned, [facility] 05:01:00 [facility] Knee replacement<sup>2</sup> Mem orial [place] Fusion<sup>1</sup> [facility] [facility] Plan of Care Planned Activity Planned Date Details Comments Source Future Scheduled 2022-07-[address] [facility] Test 00:00:00 (12+) [code = Medical Center DEPRESSION SCREENING (12+)] Future Scheduled 2022-07-09 FALLS RISK SCREENING [facility] Test 00:00:00 [code = FALLS RISK Medical C enter SCREENING] Future Scheduled 2022-07-[address] [facility] Test 00:00:00 (12+) [code = Medical Center DEPRESSION SCREENING (12+)] Future Scheduled 2022-07-09 FALLS RISK SCREENING [facility] Test 00:00:00 [code = FALLS RISK Medical C enter SCREENING] Future Scheduled 2022-06-22 Hepatitis C screening Me [facility] Test 00:46:40 (procedure) [code = 511065261] Future Scheduled 2022-06-22 SHINGLES VACCINES (1 Met [facility] Test 00:46:40 of 2) [code = SHINGLES VACCINES (1 of 2)] Future Scheduled 2022-06-22 BREAST CANCER [facility] Test 00:46:40 SCREENING [code = BREAST CANCER SCREENING] Future Scheduled 2022-06-22 COLONOSCOPY SCREENING Me [facility] Test 00:46:40 [code = COLONOSCOPY SCREENING] Future Scheduled 2022-06-22 65+ [facility]OCOCCAL [facility] 00:46:40 VACCINE (3 - PCV) [code = 65+ PNEUMOCOCCAL VACCINE (3 - PCV)] Future Scheduled 2022-06-22 INFLUENZA VACCINE [facility] Test 00:46:40 [code = INFLUENZA VACCINE] Future Scheduled 2022-06-22 Hepatitis C screening [facility] Test 00:46:40 (procedure) [code = 787448805] Future Scheduled 2022-06-22 SHINGLES VACCINES (1 Met [facility] Test 00:46:40 of 2) [code = SHINGLES VACCINES (1 of 2)] Future Scheduled 2022-06-22 BREAST CANCER [facility] Test 00:46:40 SCREENING [code = BREAST CANCER SCREENING] Future Scheduled 2022-06-22 COLONOSCOPY SCREENING Me [facility] Test 00:46:40 [code = COLONOSCOPY SCREENING] Future Scheduled 2022-06-22 65+ [facility] 00:46:40 VACCINE (3 - PCV) [code = 65+ PNEUMOCOCCAL VACCINE (3 - PCV)] Future Scheduled 2022-06-22 INFLUENZA VACCINE [facility] Test 00:46:40 [code = INFLUENZA VACCINE] Future Scheduled 2022-06-11 HEPATITIS B VACCINES Met [facility] Test 01:18:56 (1 of 3 - 3-dose series) [code = HEPATITIS B VACCINES (1 of 3 - 3-dose series)] Future Scheduled 2022-06-11 Hepatitis C screening [facility] Test 01:18:56 (procedure) [code = [id number]] Future Scheduled 2022-06-11 SHINGLES VACCINES (1 Met [facility] Test 01:18:56 of 2) [code = SHINGLES VACCINES (1 of 2)] Future Scheduled 2022-06-11 BREAST CANCER [facility] Test 01:18:56 SCREENING [code = BREAST CANCER SCREENING] Future Scheduled 2022-06-11 COLONOSCOPY SCREENING [facility] Test 01:18:56 [code = COLONOSCOPY SCREENING] Future Scheduled 2022-06-11 65+ [facility] 01:18:56 VACCINE (3 - PCV) [code = 65+ PNEUMOCOCCAL VACCINE (3 - PCV)] Future Scheduled 2022-06-11 INFLUENZA VACCINE Method [facility] Test 01:18:56 [code = INFLUENZA VACCINE] Future Scheduled 2022-04-[address] [facility] Test 00:00:00 WELLNESS (YEAR 2 or Medical Center FIRST YEAR if no IPPE) [code = MEDICARE ANNUAL WELLNESS (YEAR 2 or FIRST YEAR if no IPPE)] Future Scheduled 2022-04-[address] [facility] 00:00:00 WELLNESS (YEAR 2 or Medical Center FIRST YEAR if no IPPE) [code = MEDICARE ANNUAL WELLNESS (YEAR 2 or FIRST YEAR if no IPPE)] Future Scheduled 2022-03-09 INFLUENZA VACCINE (#1) [facility]00 [code = INFLUENZA Medical Ce nter VACCINE (#1)] Future Scheduled 2022-03-09 INFLUENZA VACCINE (#1) [facility] 00:00:00 [code = INFLUENZA Medical Ce nter VACCINE (#1)] Future Scheduled 2021-02-15 PNEUMOCOCCAL 65+ YRS [facility] Test 00:00:00 (1 - PCV) [code = Medical Ce nter PNEUMOCOCCAL 65+ YRS (1 - PCV)] Future Scheduled 2021-02-15 PNEUMOCOCCAL 65+ Y[facility] Test 00:00:00 (1 - PCV) [code = Medical Ce nter PNEUMOCOCCAL 65+ YRS (1 - PCV)] Future Scheduled 2006-02-15 SHINGLES VACCINES ([address] [facility] Test 00:00:00 of 2) [code = SHINGLES Medic al Center VACCINES (1 of 2)] Future Scheduled 2006-02-15 SHINGLES VACCINES ([address] [facility] Test 00:00:00 of 2) [code = SHINGLES Medic al Center VACCINES (1 of 2)] Future Scheduled 1975-02-15 DTAP/TDAP/TD [facility]ACCINES [facility] 00:00:00 (1 - Tdap) [code = Medical C enter DTAP/TDAP/TD VACCINES (1 - Tdap)] Future Scheduled 1975-02-15 DTAP/TDAP/TD [facility]ACCINES [facility] 00:00:00 (1 - Tdap) [code = Medical C enter DTAP/TDAP/TD VACCINES (1 - Tdap)] Future Scheduled 1974-02-15 HEPATITIS C [facility]CRE[facility]ING [facility] 00:00:00 [code = HEPATITIS C Medical Center SCREENING] Future Scheduled 1974-02-15 HEPATITIS C [facility]CRE[facility]ING [facility] 00:00:00 [code = HEPATITIS C Medical Center SCREENING] Future Scheduled [address] [facility] Test 00:00:00 Counseling and Medical Cente r Screening (12+) [code = Tobacco Cessation Counseling and Screening (12+)] Future Scheduled [address] [facility] Test 00:00:00 Counseling and Medical Cente r Screening (12+) [code = Tobacco Cessation Counseling and Screening (12+)] Future Scheduled 1956 COVID-19 VACCINE (#1) [facility] 00:00:00 [code = COVID-[address] VACCINE (#1)] Future Scheduled 1956 COVID-19 VACCINE (#1) [facility] 00:00:00 [code = COVID-[address] VACCINE (#1)] Future Scheduled [address] [facility] 00:[facility]:00 malignant neoplasm of [facility] colon (procedure) [code = 291019785] Future Scheduled 1956 Sigmoidoscopy [code = [facility] S[facility]oscopy] Medical Cente r Future Scheduled [address] [facility] 00:00:00 malignant neoplasm of Medica l Center breast (procedure) [code = 024218586] Future Scheduled [address] [facility] 00:00:00 malignant neoplasm of [facility] Center colon (procedure) [code = 447338943] Future Scheduled 1956 Sigmoidoscopy [facility]code [facility]] [facility] Future Scheduled [address] [facility] 00:00:00 malignant neoplasm of [facility]ica [facility] Center breast (procedure) [code = 175441814] Future Scheduled [address] [facility] 00:00:00 (combo) [code = CT Medical C enter Colonography (combo)] Future Scheduled [address] [facility] 00:00:00 malignant neoplasm of [facility] Center colon (procedure) [code = 490601286] Future Scheduled [address] [facility] 00:00:00 malignant neoplasm of [facility] Center colon (procedure) [code = 826771395] Future Scheduled 1956 DXA SCAN [code = DXA [facility] Test 00:00:00 SCAN] [facility] Future Scheduled [address] [facility] Test 00:00:00 malignant neoplasm of [facility] Center colon (procedure) [code = 871675700] Future Scheduled [address] [facility] 00:00:00 (combo) [code = CT Medical C enter Colonography (combo)] Future Scheduled [address] [facility] 00:00:00 malignant neoplasm of [facility] Center colon (procedure) [code = 669806316] Future Scheduled [address] [facility] 00:00:00 malignant neoplasm of [facility] Center colon (procedure) [code = 339042482] Future Scheduled 1956 DXA SCAN [code = DXA [facility] Test 00:00:00 SCAN] [facility] Future Scheduled [address] [facility] Test 00:00:00 malignant neoplasm of [facility] colon (procedure) [code = 064461128] Encounters Start End Encounter Admission Attending Care Care Encounter Source Date/Time Date/Time Type Type Clinicians Facility Department ID 2022-08-14 Outpatient Hernandez, STLMLC STLMLC [id number] Common 07:43:[address] [facility] [address] [facility] 2022-08-04 Outpatient Hernandez, STLMLC STLMLC [id number] Common 13:26:[address] [facility] 2022-08-03 Outpatient Hernandez, STLMLC STLMLC [id number] Common 14:53:[address] [facility] 2022-07-25 Outpatient Hernandez, STLMLC STLMLC [id number] Common 15:59:[address] [facility] 2022-07-24 Outpatient Hernandez, STLMLC STLMLC [id number] Common 07:39:[address] [facility] 2022-07-19 Outpatient Hernandez, STLMLC STLMLC [id number] Common 08:46:[address] [facility] 2022-07-15 Inpatient JUSTINE MesaCL ADMI [id number] [facility] 11:05:[address] [place] [address] 2022-06-20 [facility] [id number] [facility] 00:00:00 Encounter [facility] 2022-06-20 [facility] [id number] [facility] 00:00:00 Encounter [facility] 2022-06-15 Outpatient Hernandez, STLMLC STLMLC [id number] Common 08:26:[address] [facility] 2022-05-25 Outpatient Hernandez, STLMLC STLMLC [id number] Common 11:25:[address] [facility] 2022-02-27 Outpatient Hernandez, STLMLC STLMLC [id number] Common 10:42:[address] [facility] 2022-02-03 Outpatient Myrick, STLMLC STLMLC [id number] Common 12:12:[address] [facility] 2022-01-31 Outpatient Myrick, STLMLC STLMLC [id number] Common 12:38:[address] [facility] 2021-12-02 Outpatient Myrick, STLMLC STLMLC [id number] Common 15:52:[address] [facility] 2021-12-01 Outpatient Myrick, STLMLC STLMLC [id number] Common 10:24:[address] [facility] 2021-11-21 Outpatient Myrick, STLMLC STLMLC [id number] Common 10:05:[address] [facility] 2021-11-08 Outpatient Myrick, STLMLC STLMLC [id number] Common 08:37:[address] [facility] 2021-11-04 Outpatient Myrick, STLMLC STLMLC [id number] Common 14:15:[address] [facility] 2021-10-31 Outpatient Arrieta, Na STLMLC STLMLC [id number] Common 09:40:02 [facility] 2021-05-08 Outpatient Estevan MORAES NEEBENEZER OPH [id number] Univers 08:53:46 [facility] 2021-05-06 Outpatient Estevan MORAES [facility] ECTOR [id number] Univers 18:47:42 [facility] 2022-08-15 2022-08-15 OFFICE STLMLC STLMLC [id number] Co mmon 00:00:00 00:00:00 VISIT [facility] LEVEL 4 [facility] 2022-07-26 2022-07-26 (TEL) STLMLC STLMLC [id number] Co mmon 00:00:00 00:00:00 [facility] 2022-07-13 2022-07-13 (TEL) STLMLC STLMLC [id number] Co mmon 00:00:00 00:00:00 [facility] 2022-06-22 2022-07-07 Inpatient Adonis Wilkins [facility].01 G001 [id number] [facility] 09:01:00 17:11:00 00 [facility] 2022-06-08 2022-06-08 (TEL) STLMLC STLMLC [id number] Co mmon 00:00:00 00:00:00 [facility] 2022-05-31 2022-05-31 (TEL) STLMLC STLMLC [id number] Co mmon 00:00:00 00:00:00 [facility] 2022-04-26 2022-04-26 [facility], 1.2.840.1 [id number] 21 [id number] Methodi 06:55:00 12:55:00 Encounter Jose Keller 25351.1.[address] 3.430.2.7 Hospit a .3.414645 l .8 2022-04-26 2022-04-26 [facility], 1.2.840.1 [id number] 21 [id number] Methodi 06:55:00 12:55:00 Encounter Jose Keller 84075.1.[address] 3.430.2.7 Hospit a .3.850003 l .8 2022-04-26 2022-04-26 Anesthesia Reji Waldrop 1.2.840.1 1 [id number] Methodi 09:56:00 11:03:00 Event Ce Knutson 52295.1.[address] 3.430.2.7 Hospit a .3.759140 l .8 2022-04-26 2022-04-26 Anesthesia Reji Waldrop 1.2.840.1 1 [id number] Methodi 09:56:00 11:03:00 Event Ce Knutson 00476.1.[address] 3.430.2.7 Hospit a .3.748500 l .8 2022-04-26 2022-04-26 Surgery Oppermann, 1.2.840.1 [id number] 100 [id number] Methodi 09:15:00 10:45:00 Jose E. 23687.1.1 677 s t 3.430.2.7 Hospit a .3.063765 l .8 2022-04-26 2022-04-26 [facility] 1.2.840.1 [id number] 329 [id number] Methodi 09:15:00 10:45:00 Jose E. 46339.1.1 677 s t 3.430.2.7 Hospit a .3.385290 l .8 2022-04-26 2022-04-26 Travel 1.2.840.1 1.2.339.205 9906 321480 Methodi 00:00:00 00:00:[address] 3.430.2.7 0.2.7.3.698 Ho spita .3.303939 084.8 l .8 2022-04-26 2022-04-26 Travel 1.2.840.1 1.2.126.330 6235 875415 Methodi 00:00:00 00:00:[address] 3.430.2.7 0.2.7.3.698 Ho spita .3.968173 084.8 l .8 2022-04-24 2022-04-24 Travel 1.2.840.1 1.2.663.007 6520 757982 Methodi 00:00:00 00:00:[address] 3.430.2.7 0.2.7.3.698 Ho spita .3.108664 084.8 l .8 2022-04-24 2022-04-24 Travel 1.2.840.1 1.2.973.333 8867 288325 Methodi 00:00:00 00:00:[address] 3.430.2.7 0.2.7.3.698 Ho spita .3.019412 084.8 l .8 2022-04-21 2022-04-21 Prep for Oppermann, 1.2.840.1 [id number] 21 [id number] Methodi 00:00:00 00:00:00 Surgery Jose E. 16016.1.1 940 s t 3.430.2.7 Hospit a .3.440681 l .8 2022-04-21 2022-04-21 Orders Oppermann, 1.2.840.1 [id number] 169 [id number] Methodi 00:00:00 00:00:00 Only Jose E. 98960.1.1 613 s t 3.430.2.7 Hospit a .3.250624 l .8 2022-04-21 2022-04-21 Prep for Oppermann, 1.2.840.1 [id number] 21 [id number] Methodi 00:00:00 00:00:00 Surgery Jose E. 17080.1.1 940 s t 3.430.2.7 Hospit a .3.811503 l .8 2022-04-21 2022-04-21 Orders Oppermann, 1.2.840.1 [id number] 488 [id number] Methodi 00:00:00 00:00:00 Only Jose E. 29730.1.1 613 s t 3.430.2.7 Hospit a .3.927407 l .8 2022-04-05 2022-04-05 Outpatient Estevan [facility] [id number] Univers 15:00:00 15:00:00 CARSON adam [facility] 2022-03-21 2022-03-21 Office Oppermann, 1.2.840.1 [id number] 025 [id number] Methodi 11:30:00 12:00:24 Visit Jose E. 78443.1.1 407 s t 3.430.2.7 Hospit a .3.310573 l .8 2022-03-21 2022-03-21 Office Oppermann, 1.2.840.1 [id number] 573 [id number] Methodi 11:30:00 12:00:24 Visit Jose E. 78785.1.1 407 s t 3.430.2.7 Hospit a .3.612597 l .8 2022-03-21 2022-03-21 Travel 1.2.840.1 1.2.960.142 1631 266518 Methodi 00:00:00 00:00:[address] 3.430.2.7 0.2.7.3.698 Ho spita .3.302728 084.8 l .8 2022-03-21 2022-03-21 Travel 1.2.840.1 1.2.474.383 3398 500800 Methodi 00:00:00 00:00:[address] 3.430.2.7 0.2.7.3.698 Ho spita .3.803241 084.8 l .8 2022-03-15 2022-03-15 Outpatient Estevan [facility] [id number] Univers 10:00:00 10:00:00 [facility] 2022-03-14 2022-03-14 (TEL) STLMLC STLMLC [id number] Co mmon 00:00:00 00:00:00 [facility] 2022-03-06 2022-03-06 [facility], 1.2.840.1 [id number] Methodi 05:46:00 12:05:00 Encounter Jose Keller 44943.1.[address] 3.430.2.7 Hospit a .3.449539 l .8 2022-03-06 2022-03-06 [facility], 1.2.840.1 [id number] Methodi 05:46:00 12:05:00 Encounter Jose Keller 93337.1.[address] 3.430.2.7 Hospit a .3.566608 l .8 2022-03-06 2022-03-06 Anesthesia Jory Santoroon 1.2.840. 1 [id number] Methodi 07:44:00 09:46:00 Event Corrina Cavanaugh 61032.1.[address] 3.430.2.7 Hospit a .3.049377 l .8 2022-03-06 2022-03-06 Anesthesia Jory Santoro 1.2.840. 1 [id number] Methodi 07:44:00 09:46:00 Event Corrina Cavanaugh 18937.1.[address] 3.430.2.7 Hospit a .3.163827 l .8 2022-03-06 2022-03-06 Surgery Oppermann, 1.2.840.1 [id number] 867 [id number] Methodi 07:45:00 09:05:00 Jose E. 77188.1.1 269 s t 3.430.2.7 Hospit a .3.800571 l .8 2022-03-06 2022-03-06 Surgery Oppermann, 1.2.840.1 [id number] 800 [id number] Methodi 07:45:00 09:05:00 Jose E. 12635.1.1 269 s t 3.430.2.7 Hospit a .3.984575 l .8 2022-03-01 2022-03-01 Pre-Admiss Oppermann, 1.2.840.1 [id number] Methodi 13:00:00 14:00:00 ion Jose E. 70609.1.1 998 s t Testing 3.430.2.7 Hospit a .3.637784 l .8 2022-03-01 2022-03-01 Pre-Admiss Oppermann, 1.2.840.1 [id number] Methodi 13:00:00 14:00:00 ion Jose E. 67850.1.1 998 s t Testing 3.430.2.7 Hospit a .3.559102 l .8 2022-03-01 2022-03-01 Travel 1.2.840.1 1.2.121.898 2044 579484 Methodi 00:00:00 00:00:[address] 3.430.2.7 0.2.7.3.698 Ho spita .3.328769 084.8 l .8 2022-03-01 2022-03-01 Travel 1.2.840.1 1.2.920.877 3703 431790 Methodi 00:00:00 00:00:[address] 3.430.2.7 0.2.7.3.698 Ho spita .3.404551 084.8 l .8 2022-02-27 2022-02-27 SUB ANNUAL [facility] [id number] Common 00:00:00 00:00:00 MCR Spirit WELLNESS - [facility] VISIT [facility] 2022-02-27 2022-02-27 OFFICE [facility] [id number] Co mmon 00:00:00 00:00:00 VISIT Spirit ESTAB PT - CHI LEVEL 4 [facility] 2022-02-27 2022-02-27 (TEL) [facility] [id number] Co mmon 00:00:00 00:00:00 Spirit - [facility] 2022-02-07 2022-02-07 Orders Doctor ROSELIA 1.2.840.114 [id number] Univers 00:00:00 00:00:00 Only Unassigned, CINDY 350.1.13.10 it[place] [facility] 4.2.7.2.686 Negrito as [phone] [place] [address] [place] 2022-02-02 2022-02-02 (TEL) [facility] [id number] Co mmon 00:00:00 00:00:00 Spirit - [facility] 2022-01-31 2022-01-31 Travel 1.2.840.1 1.2.023.788 6036 520493 Methodi 00:00:00 00:00:[address] 3.430.2.7 0.2.7.3.698 Ho spita .3.219078 084.8 l .8 2022-01-31 2022-01-31 Travel 1.2.840.1 1.2.842.705 1742 917266 Methodi 00:00:00 00:00:[address] 3.430.2.7 0.2.7.3.698 Ho spita .3.948574 084.8 l .8 2022-01-27 2022-01-27 (TEL) STLMLC STLMLC [id number] Co mmon 00:00:00 00:00:00 [facility] 2021-12-30 2021-12-30 (TEL) STLMLC STLMLC [id number] Co mmon 00:00:00 00:00:00 [facility] 2021-12-19 2021-12-19 (TEL) STLMLC STLMLC [id number] Co mmon 00:00:00 00:00:00 [facility] 2021-12-13 2021-12-13 (TEL) STLMLC STLMLC [id number] Co mmon 00:00:00 00:00:00 [facility] 2021-12-12 2021-12-12 Pre-Admiss Oppermann, 1.2.840.1 [id number] Methodi 15:00:00 16:00:00 ion Jose E. 98155.1.1 317 s t Testing 3.430.2.7 Hospit a .3.316341 l .8 2021-12-12 2021-12-12 Pre-Admiss Oppermann, 1.2.840.1 [id number] Methodi 15:00:00 16:00:00 ion Jose E. 34532.1.1 317 s t Testing 3.430.2.7 Hospit a .3.223158 l .8 2021-12-12 2021-12-12 Travel 1.2.840.1 1.2.965.452 6478 685697 Methodi 00:00:00 00:00:[address] 3.430.2.7 0.2.7.3.698 Ho spita .3.928804 084.8 l .8 2021-12-12 2021-12-12 Travel 1.2.840.1 1.2.199.292 6743 207569 Methodi 00:00:00 00:00:[address] 3.430.2.7 0.2.7.3.698 Ho spita .3.693303 084.8 l .8 2021-12-08 2021-12-08 (TEL) STLMLC STLMLC [id number] Co mmon 00:00:00 00:00:00 [facility] 2021-12-01 2021-12-01 (TEL) STLMLC STLMLC [id number] Co mmon 00:00:00 00:00:00 [facility] 2021-11-30 2021-11-30 (TEL) STLMLC STLMLC [id number] Co mmon 00:00:00 00:00:00 [facility] 2021-11-25 2021-11-25 (TEL) STLMLC STLMLC [id number] Co mmon 00:00:00 00:00:00 [facility] 2021-11-21 2021-11-21 (TEL) STLMLC STLMLC [id number] Co mmon 00:00:00 00:00:00 [facility] 2021-11-18 2021-11-18 (TEL) STLMLC STLMLC [id number] Co mmon 00:00:00 00:00:00 [facility] 2021-11-15 2021-11-15 Office Oppermann, 1.2.840.1 [id number] 806 [id number] Methodi 13:00:00 14:01:57 Visit Jose Keller 95245.1.1 465 s t 3.430.2.7 Hospit a .3.551695 l .8 2021-11-15 2021-11-15 Office Opperjuany, 1.2.840.1 [id number] 366 [id number] Methodi 13:00:00 14:01:57 Visit Jose Saavedra50.1.1 465 s t 3.430.2.7 Hospit a .3.346486 l .8 2021-11-15 2021-11-15 Prep for Allen, 1.2.840.1 [id number] 21864 27076 Methodi 00:00:00 00:00:00 Surgery Fun[place] P 46838.1.[address] 3.430.2.7 Hospit a .3.468672 l .8 2021-11-15 2021-11-15 Travel 1.2.840.1 1.2.140.519 6487 080553 Methodi 00:00:00 00:00:[address] 3.430.2.7 0.2.7.3.698 Ho spita .3.457162 084.8 l .8 2021-11-15 2021-11-15 Prep for Allen, 1.2.840.1 [id number] 15717 37356 Methodi 00:00:00 00:00:00 Surgery Funmi P 70760.1.[address] 3.430.2.7 Hospit a .3.085919 l .8 2021-11-15 2021-11-15 Travel 1.2.840.1 1.2.198.057 6815 819401 Methodi 00:00:00 00:00:[address] 3.430.2.7 0.2.7.3.698 Ho spita .3.924790 084.8 l .8 2021-11-15 2021-11-15 (TEL) STLMLC STLMLC [id number] Co mmon 00:00:00 00:00:00 [facility] 2021-11-14 2021-11-14 (TEL) STLMLC STLMLC [id number] Co mmon 00:00:00 00:00:00 [facility] 2021-11-04 2021-11-04 (TEL) STLMLC STLMLC [id number] Co mmon 00:00:00 00:00:00 [facility] 2021-10-20 2021-10-20 Telephone Stephane, 1.2.840.1 [id number] Methodi 00:00:00 00:00:[address] 3.430.2.7 Hospit a .3.178082 l .8 2021-10-20 2021-10-20 Telephone Stephane, 1.2.840.1 [id number] 2099 [id number] Methodi 00:00:00 00:00:[address] 3.430.2.7 Hospit a .3.362515 l .8 2021-10-05 2021-10-05 Documentat Mas, 1.2.840.1 [id number] Methodi 00:00:00 00:00:00 ion Angel 25099.1.[address] 3.430.2.7 Hospit a .3.729946 l .8 2021-10-05 2021-10-05 Documentat Mas, 1.2.840.1 [id number] Methodi 00:00:00 00:00:00 ion Angel 42338.1.[address] 3.430.2.7 Hospit a .3.978383 l .8 2021-09-22 2021-09-22 Travel 1.2.840.1 1.2.292.751 8190 [id number] Methodi 00:00:00 00:00:[address] 3.430.2.7 0.2.7.3.698 Ho spita .3.723501 084.8 l .8 2021-09-22 2021-09-22 Travel 1.2.840.1 1.2.920.901 8075 023295 Methodi 00:00:00 00:00:[address] 3.430.2.7 0.2.7.3.698 Ho spita .3.954755 084.8 l .8 2021-08-23 2021-08-23 Ambulatory nullFlavo MNA [id number] Memoria 14:15:00 14:15:00 Pre-Reg r Neurology 06 l Estelle Saucedo 2021-08-23 2021-08-23 Ambulatory nullFlavo MNA [id number] Memoria 14:15:00 14:15:00 Pre-Reg r Neurology 06 l Estelle Saucedo 2021-08-23 2021-08-23 Outpatient MHIE IE [id number] Memoria 08:15:00 08:15:00 06 josy Saucedo 2021-08-23 2021-08-23 [id number] 08:15:00 08:15:00 Farhan Herminia Don 2021-07-12 2021-07-12 Ambulatory nullFlavo MNA [id number] Memoria 14:15:00 14:15:00 Pre-Reg r Neurology 05 l Estelle Saucedo 2021-07-12 2021-07-12 Ambulatory nullFlavo MNA [id number] Memoria 14:15:00 14:15:00 Pre-Reg r Neurology 05 l Estelle Saucedo 2021-07-12 2021-07-12 [id number] 08:15:00 08:15:00 Farhan Mela Don 2021-06-14 2021-06-14 Telephone Courtney, 1.2.840.1 [id number] Methodi 00:00:00 00:00:[address] 3.430.2.7 Hospit a .3.520742 l .8 2021-06-01 2021-06-01 Outpatient IE ELIANA [id number] Memoria 09:00:00 09:00:00 05 josy Saucedo 2021-05-19 2021-05-19 Ambulatory nullFlavo MNA [id number] Memoria 14:15:00 14:15:00 Pre-Reg r Neurology 04 l Estelle Saucedo 2021-05-19 2021-05-19 Ambulatory nullFlavo MNA [id number] Memoria 14:15:00 14:15:00 Pre-Reg r Neurology 04 l Estelle Saucedo 2021-05-192021-05-19 [id number] 08:15:00 08:15:00 Farhan 04 Arian 2021-05-10 2021-05-10 Outpatient MHIE MHIE [id number] Memoria 15:45:00 15:45:00 04 josy Saucedo 2021-03-31 2021-03-31 Ambulatory nullFlavo MNA [id number] Memoria 13:15:00 13:15:00 Pre-Reg r Neurology 03 l Estelle Saucedo 2021-03-31 2021-03-31 Ambulatory nullFlavo MNA [id number] Memoria 13:15:00 13:15:00 Pre-Reg r Neurology 03 l Estelle Saucedo 2021-03-31 2021-03-31 Outpatient MHIE MHIE [id number] Memoria 08:15:00 08:15:00 03 josy Saucedo 2021-03-31 2021-03-31 [facility]NI [facility] [id number] 08:15:00 08:15:00 Farhan 03 Arian 2021-02-23 2021-02-24 Outpatient nullFlavo MNA [id number] Memoria 20:00:00 04:59:59 r Neurology 02 josy Saucedo 2021-02-23 2021-02-24 Outpatient nullFlavo MNA [id number] Memoria 20:00:00 04:59:59 r Neurology 02 josy Kleinann 2021-02-23 2021-02-23 [facility] [id number] 15:00:00 23:59:59 Farhan 02 Arian 2021-02-23 2021-02-23 Outpatient MHIE MHIE [id number] Memoria 15:00:00 15:00:00 02 josy Saucedo 2020-10-14 2020-10-14 Surgery [facility] 1.2.840.114 [id number] 08:34:00 09:10:00 Fausto Garza 350.1.13.10 [facility] [place] 4[place]7.2.686 [place] [facility] [id number] [facility] System [facility] 020 Branch 2020-10-14 2020-10-14 Surgery [place] 1.2.840.114 [id number] 08:34:00 09:10:00 [place] 350.1.13.10 [place] 4.2.7.2.686 Surgical [id number] [place] 020 2020-10-12 2020-10-12 Wire Coiler Jyoti, [facility] Lab Main [facility] 1.2.8 40.114 [id number] Univers 11:40:06 11:55:06 Visit Fausto Moraes 350.1.1 3.10 ity of [place]2.[place]2.[place] Profess[place] [id number] [place] dical [address] 2020-10-12 2020-10-12 Wire Coiler Jyoti, [facility] 1.2.840.114 [id number] 11:40:06 11:55:06 Visit Lab Main Greg 350.1.13.10 [place] 4.2.7.2.686 Professio [id number] [address] 2020-10-12 2020-10-12 Laboratory Only, [facility] Test [facility] 1.2.840. 114 [id number] [facility] 11:34:36 11:49:36 Only Fausto Moraes 350.1.1 3.10 ity of [place] [id number] [address] 2020-10-12 2020-10-12 Laboratory Only, [facility] 1.2.840.114 8 [id number] 11:34:36 11:49:36 Only Test [place] 350.1.13.10 [place] 4.2.7.2.686 [place] [id number] [facility] 2020-10-12 2020-10-12 Outpatient R ALEISHA [facility] [id number] Univers 10:45:00 10:45:00 FAUSTO adam of [facility] 2020-10-12 2020-10-12 Orders Doctor VELOZ 1.2.840.114 [id number] Univers 00:00:00 00:00:00 Only Unassigned, CINDY 350.1.13.10 ity of [place] [facility] 4.2.7.2.686 [place] [id number] [place] [address] Branch 2020-10-12 2020-10-12 Orders Doctor ROSELIA 1.2.840.114 [id number] 00:00:00 00:00:00 Only Unassigned, CINDY 350.1.13.10 [place] [facility] 4.2.7.2.686 [id number] 009 2020-05-13 2020-05-14 Outpatient SUSAN WHITE [facility] 021 623 [id number] [place] 00:00:00 00:00:[address] 2020-05-11 2020-05-11 Outpatient AMY [facility] 2100 [id number] [place] 00:00:00 00:00:00 IMRAN [address] 2020-04-01 2020-04-01 [facility] 1.2.840.114 [id number] [facility] 06:36:00 10:10:00 Encounter Fausto Garza 350.1.13.10 ity of [place] Surgical [id number] [facility] 1 [place] 2020-04-01 2020-04-01 [facility] 1.2.840.114 [id number] 06:36:00 10:10:00 Encounter Fausto Garza 350.1.13.10 [place] 4.2.7.2.686 Surgical [id number] [place] [address] 2020-04-01 2020-04-01 [facility]est[facility] 1.2.840.11 4 [id number] Univers 08:01:00 08:33:00 [facility] 350.1.13.10 ity of [place].2.[place] Surgical [id number] [facility] 020 Branch 2020-04-01 2020-04-01 Anesthesia Demetrio Christensen [facility] 1.2.840.11 4 [id number] 08:01:00 08:33:00 [facility] 350.1.13.10 [place] 4.2.7.2.686 Surgical [id number] [place] [address] 2020-03-31 2020-03-31 [facility] [id number] Univers 09:30:00 09:30:00 FAUSTO itagus [facility] 2020-03-30 2020-03-30 Outpatient R [facility] [id number] Univers 12:45:00 12:45:00 ity [facility] 2020-03-30 2020-03-30 Laboratory Only, Adc Test [facility] 1.2.840. 114 [id number] Univers 11:17:56 11:32:56 Only Fausto Moraes 350.1.1 3.10 ity of [place]2.[place] [id number] [address] 2020-03-30 2020-03-30 Orders Doctor ROSELIA 1.2.840.114 [id number] Univers 00:00:00 00:00:00 Only Unassigned, CINDY 350.1.13.10 ity of [place] [facility] 4.2.7.2.686 [place] as [id number] [address] 2020-03-25 2020-03-25 [place]patient [place] [address] 2100 [id number] [place] 00:00:00 00:00:00 IMRAN [address] 2020-03-23 2020-03-23 Wire Coiler Jyoti, Juanpablo Lab Main [facility] 1.2.8 40.114 [id number] Univers 15:51:10 16:06:10 Visit Fausto Moraes 350.1.1 3.10 ity of [place] 4[place]2.7.2.686 [place] [facility] [id number] [address] 2020-03-23 2020-03-23 Outpatient R [facility] [id number] Univers 16:00:00 16:00:00 FAUSTO adam [facility] 2020-03-23 2020-03-23 Outpatient AMY [facility] 2100 [id number] [place] 00:00:00 00:00:00 IMRAN [address] 2020-03-23 2020-03-23 Outpatient MODESTA [facility] 306 [id number] [place] 00:00:00 00:00:00 KI, [address] Results Test Description Test Time Test Comments Results Result Comments Source GLUCOSE BEDSIDE 2022-07-07 15:54:00 Test Item Value Reference Range Interpretation Comme nts GLUCOSE BEDSIDE (test code = 122 MG/DL 70-110 H Performed by certified 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 press operator at GLUBED) [facility] GLUCOSE [id number] 12:13:00 Test Item Value Reference Range Interpretation Comments GLUCOSE BEDSIDE (test 156 MG/DL 70-110 H Perfor med by certified code = GLUBED) 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 press operator at [facility] GLUCOSE [id number] 10:42:00 Test Item Value Reference Range Interpretation Comments GLUCOSE BEDSIDE (test 181 MG/DL 70-110 H Perfor med by certified code = GLUBED) 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 press operator at [facility] GLUCOSE [id number] 20:05:00 Test Item Value Reference Range Interpretation Comments GLUCOSE BEDSIDE (test 90 MG/DL 70-110 N Perfor med by certified code = GLUBED) 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 press operator at [facility] GLUCOSE [id number] 15:46:00 Test Item Value Reference Range Interpretation Comments GLUCOSE BEDSIDE (test 212 MG/DL 70-110 H Perfor med by certified code = GLUBED) 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 press operator at [facility] GLUCOSE [id number] 12:44:00 Test Item Value Reference Range Interpretation Comments GLUCOSE BEDSIDE (test 120 MG/DL 70-110 H Perfor med by certified code = GLUBED) 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 press operator at [facility] BASIC METABOLIC [id number] 08:34:00 Test Item Value Reference Range Interpretation [...] the recommended for bhumika for GFRby the [facility] on for Adults.The GFR will not calculate if th e sex is unknown or if thepatient's ag e is <18 years. CREATININE (test 4.4 mg/dL 0.6-1.3 H code = CREAT) CALCIUM (test code = 9.5 mg/dL 8.0-10.5 N CA) [id number] 08:34:00 Test Item Value Reference Range Interpretation Comments PHOSPHOROUS (test code = PHOS) 2.3 MG/DL 2.5-4.9 L [id number] 08:34:00 Test Item Value Reference Range Interpretation Comments MAGNESIUM (test code = MAG) 2.18 mg/dL 1.80-2.40 N [id number] 08:29:00 Test Item Value Reference Range Interpretation Comments VANCOMYCIN (test code = VANCO) 20.2 mcg/mL CBC W/AUTO [id number] 08:27:00 Test Item Value Reference Range Interpretation [...] REQUIRED (test code NO = MDIFF) CALCIUM [id number] 08:20:00 Test Item Value Reference Range Interpretation Comments CALCIUM IONIZED (test code = AMILCAR) 1.21 MMOL/L 1.09-1.30 N GLUCOSE [id number] 05:39:00 Test Item Value Reference Range Interpretation Comments GLUCOSE BEDSIDE (test 175 MG/DL 70-110 H Perfor med by certified code = GLUBED) 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 press operator at [facility] GLUCOSE [id number] 20:49:00 Test Item Value Reference Range Interpretation Comments GLUCOSE BEDSIDE (test 167 MG/DL 70-110 H Perfor med by certified code = GLUBED) 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 press operator at [facility] GLUCOSE [id number] 17:03:00 Test Item Value Reference Range Interpretation Comments GLUCOSE BEDSIDE (test 127 MG/DL 70-110 H Perfor med by certified code = GLUBED) 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 press operator at [facility] GLUCOSE [id number] 11:54:00 Test Item Value Reference Range Interpretation Comments GLUCOSE BEDSIDE (test 177 MG/DL 70-110 H Perfor med by certified code = GLUBED) 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 press operator at [facility] GLUCOSE [id number] 06:39:00 Test Item Value Reference Range Interpretation Comments GLUCOSE BEDSIDE (test 153 MG/DL 70-110 H Perfor med by certified code = GLUBED) 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 press operator at [facility] GLUCOSE [id number] 19:51:00 Test Item Value Reference Range Interpretation Comments GLUCOSE BEDSIDE (test 165 MG/DL 70-110 H Perfor med by certified code = GLUBED) 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 press operator at [facility] GLUCOSE [id number] 17:15:00 Test Item Value Reference Range Interpretation Comments GLUCOSE BEDSIDE (test 188 MG/DL 70-110 H Perfor med by certified code = GLUBED) 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 press operator at [facility] GLUCOSE [id number] 12:16:00 Test Item Value Reference Range Interpretation Comments GLUCOSE BEDSIDE (test 132 MG/DL 70-110 H Perfor med by certified code = GLUBED) 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 press operator at [facility] GLUCOSE [id number] 10:20:00 Test Item Value Reference Range Interpretation Comments GLUCOSE BEDSIDE (test 131 MG/DL 70-110 H Perfor med by certified code = GLUBED) 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 press operator at [facility] CBC W/AUTO [id number] 08:33:00 Test Item Value Reference Range Interpretation [...] (test code NO = MDIFF) BASIC METABOLIC [id number] 07:37:00 Test Item Value Reference Range Interpretation [...] code = 10.1 mg/dL 8.0-10.5 N CA) [id number] 07:37:00 Test Item Value Reference Range Interpretation Comments PHOSPHOROUS (test code = PHOS) 3.4 MG/DL 2.5-4.9 N [id number] 07:37:00 Test Item Value Reference Range Interpretation Comments MAGNESIUM (test code = MAG) 2.31 mg/dL 1.80-2.40 [id number] 06:49:00 Test Item Value Reference Range Interpretation Comments VANCOMYCIN (test code = VANCO) 19.9 mcg/mL GLUCOSE [id number] 06:17:00 Test Item Value Reference Range Interpretation Comments GLUCOSE BEDSIDE (test 173 MG/DL 70-110 H Perfor med by certified code = GLUBED) 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 press operator at [facility] - [place] BONE 3 [id number] 00:00:00 [facility] 1955 Sex: F FAX: Delmy Howell [phone] [place]: St: [facility] FAX: Kasey Ochoa MD [phone] FAX: Jim Mazariegos MD [phone] FAX: Adonis Canchola MD [phone] Name: JENN MOTTA [facility] : 1955 Age/S: 67/F [address] [place] [address] Unit #: [id number] Loc: G.[address] [place] [address] Phys: Kasey Mendez MD Acct: [id number] Dis Date: Status: ADM IN PHONE #: [phone] Exam Date: 022 1506 FAX #: [phone] Reason: left foot ulcers EXAMS: CPT CODE: [id number] NM BONE 3 PHASE 86332 PROCEDURE INFORMATION: Exam: NM Bone and/or Joint, 3 Phase Exam date and time: 07/04/2022 3:05 PMAge: 67 years old Clinical indication: Other: Left foot ulcers TECHNIQUE: Imaging protocol: Three phase bone scan of the feet is performed using 25 mCi of technetium 99m-MDP, which is administered intravenously. Radiopharmaceutical: 25 mCi Tc-99m HDP (Oxidronate), IV. Other technique: IV Site: Right hand; IV Site: Angiographic imaging was performed in the frontal plane immediately after radiotracer administration at 5 seconds/frame for 60 seconds. IV Site: Small field of view static imaging of the feet were then performed for blood pool imaging in the anterior and posterior projections. IV Site: 2hour delayed small field of view static imaging of the feet were then performed for delayed imaging in the multiple projections. COMPARISON: No relevant prior studies available. FINDINGS: Angiographic images: The radionuclide angiographic images show no abnormal areas of uptake. Blood pool images: Theblood pool images show no abnormal areas of uptake. Delayed imaging: The delayed images show no abnormal areas of uptake. Bones/joints: The flow study demonstrates slight increased flow to the left foot compared to the right. The only plain radiographs of the foot of the left foot performed June 25, 2022. These demonstrate Kathya deformity and a plantar calcaneal spur. No bone destruction or periosteal reaction is seen in the area of scintigraphic abnormality in the posterior calcaneus. Soft tissues: The blood pool images demonstrates no area [...] 1 Signed Report (CONTINUED) FAX: Delmy Howell [phone] [place]: St: [facility] FAX: Kasey Ochoa MD [phone] FAX: Jim Mazariegos MD [phone] FAX: Adonis Canchola MD [phone] Name: JENN MOTTA [facility] : 1955 Age/S: 67/F [address] [place] [address] Unit #: [id number] Loc: G.4[address] [facility] [id number] Phys: Kasey Mendez MD Acct: [id number] Dis Date: Status: ADM IN PHONE #: [phone] Exam Date: 07/04/2022 1506 FAX #: [phone] Reason: left foot ulcers EXAMS: CPT CODE: [id number] NMBONE 3 PHASE 24549 (Continued) noted on the left foot plain radiographs. at 0 Reported and signed by: Gus Moura M.D. CC: Delmy Ashton MD; Kasey Mendez MD; Jim Dhillon MD; Adonis Gaytan MD Technologist: NITA Daniel (N)(CT); ... Trnscrd Date/Time/By: 07/04/2022 (1849) : By: [email or web address] Orig Print D/T: S: 07/04/2022 (1849) PAGE 2 Signed ReportGLUCOSE [id number] 20:34:00 Test Item Value Reference Range Interpretation Comments GLUCOSE BEDSIDE (test 167 MG/DL 70-110 H Perfor med by certified code = GLUBED) 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 press operator at [facility] GLUCOSE [id number] 15:58:00 Test Item Value Reference Range Interpretation Comments GLUCOSE BEDSIDE (test 131 MG/DL 70-110 H Perfor med by certified code = GLUBED) 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 press operator at [facility] GLUCOSE [id number] 11:38:00 Test Item Value Reference Range Interpretation Comments GLUCOSE BEDSIDE (test 202 MG/DL 70-110 H Perfor med by certified code = GLUBED) 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 press operator at [facility] BASIC METABOLIC [id number] 08:17:00 Test Item Value Reference Range Interpretation [...] 9.2 mg/dL 8.0-10.5 N CA) CBC W/AUTO [id number] 07:54:00 Test Item Value Reference Range Interpretation [...] REQUIRED (test code NO = MDIFF) GLUCOSE [id number] 05:40:00 Test Item Value Reference Range Interpretation Comments GLUCOSE BEDSIDE (test 170 MG/DL 70-110 H Perfor med by certified code = GLUBED) 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 press operator at [facility] GLUCOSE [id number] 19:15:00 Test Item Value Reference Range Interpretation Comments GLUCOSE BEDSIDE (test 154 MG/DL 70-110 H Perfor med by certified code = GLUBED) 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 press operator at [facility] GLUCOSE [id number] 17:40:00 Test Item Value Reference Range Interpretation Comments GLUCOSE BEDSIDE (test 134 MG/DL 70-110 H Perfor med by certified code = GLUBED) 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 press operator at [facility] GLUCOSE [id number] 11:39:00 Test Item Value Reference Range Interpretation Comments GLUCOSE BEDSIDE (test 156 MG/DL 70-110 H Perfor med by certified code = GLUBED) 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 press operator at [facility] GLUCOSE [id number] 08:37:00 Test Item Value Reference Range Interpretation Comments GLUCOSE BEDSIDE (test 222 MG/DL 70-110 H [facility] by certified code = GLUBED) 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 press operator at [facility] BASIC METABOLIC [id number] 06:58:00 Test Item Value Reference Range Interpretation [...] the recommended for bhumika for GFRby the [facility] on for Adults.The GFR will not calculate if th e sex is unknown or if thepatient's ag e is <18 years. CREATININE (test 3.4 mg/dL 0.6-1.3 H code = CREAT) CALCIUM (test code = 9.0 mg/dL 8.0-10.5 N CA) [id number] 06:58:00 Test Item Value Reference Range Interpretation Comments PHOSPHOROUS (test code = PHOS) 3.0 MG/DL 2.5-4.9 [id number] 06:58:00 Test Item Value Reference Range Interpretation Comments MAGNESIUM (test code = MAG) 1.89 mg/dL 1.80-2.40 N CALCIUM [id number] 06:58:00 Test Item Value Reference Range Interpretation Comments CALCIUM IONIZED (test code = AMILCAR) 1.11 MMOL/L 1.09-1.30 N CBC W/AUTO [id number] 06:47:00 Test Item Value Reference Range Interpretation [...] REQUIRED (test code NO = MDIFF) GLUCOSE [id number] 21:27:00 Test Item Value Reference Range Interpretation Comments GLUCOSE BEDSIDE (test 224 MG/DL 70-110 H Perfor med by certified code = GLUBED) 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 press operator at [facility] GLUCOSE [id number] 16:50:00 Test Item Value Reference Range Interpretation Comments GLUCOSE BEDSIDE (test 174 MG/DL 70-110 H Perfor med by certified code = GLUBED) 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 press operator at [facility] BASIC METABOLIC [id number] 15:03:00 Test Item Value Reference Range Interpretation [...] mg/dL 8.0-10.5 N CA) POC ARTERIAL BLOOD [id number] 14:28:00 Test Item Value Reference Range Interpretation Comments POC ARTERIAL BLOOD GAS PH (test 7.343 7.35-7.45 L code = POCPHA) POC ARTERIAL BLOOD GAS PCO2 (test 47.7 mmHg 35.0-45 H code = JOBMEP5P) POC TCO2 ARTERIAL (test code = 27.4 POCTCO2) POC ARTERIAL BLOOD GAS PO2 (test 105.9 mmHg 80-100.0 H code = OLCTI9Z) POC HCO3 ARTERIAL (test code = 25.9 MMOL/L 22.0-26.0 N IWDRLK4S) POC BASE EXCESS (test code = 0.2 MMOL/L -4.0-4.0 N POCBEA) POC O2 SATURATION (test code = 97.7 % 90-100 N POCO2S) BASIC METABOLIC [id number] 14:28:00 Test Item Value Reference Range Interpretation [...] = POCGLU) 188 MG/DL 70-110 H HEMOGLOBIN [id number] 14:28:00 Test Item Value Reference Range Interpretation Comments HEMOGLOBIN ABG (test code = 10.0 G/DL 11.0-15.0 L HGB/ABG) [id number] 14:28:00 Test Item Value Reference Range Interpretation Comments HEMATOCRIT (test code = HCT/ABG) 29 % 33.0-45.0 L POC LACTIC [id number] 14:28:00 Test Item Value Reference Range Interpretation Comments POC LACTIC ACID (test code = 1.3 mmol/l 0.9-1.7 N POCLAC) GLUCOSE [id number] 14:10:00 Test Item Value Reference Range Interpretation Comments GLUCOSE BEDSIDE (test 182 MG/DL 70-110 H Perfor med by certified code = GLUBED) 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 press operator at [facility] GLUCOSE [id number] 10:38:00 Test Item Value Reference Range Interpretation Comments GLUCOSE BEDSIDE (test 251 MG/DL 70-110 H Perfor med by certified code = GLUBED) 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 press operator at [facility] [id number] 08:07:00 Test Item Value Reference Range Interpretation Comments VANCOMYCIN (test code = VANCO) 22.4 mcg/mL COMMENTS: 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 CREATININE (test 4.7 mg/dL 0.6-1.3 H code = CREAT) CALCIUM (test code = 9.7 mg/dL 8.0-10.5 N CA) [id number] 07:58:00 Test Item Value Reference Range Interpretation Comments PHOSPHOROUS (test code = PHOS) 4.6 MG/DL 2.5-4.9 N [id number] 07:58:00 Test Item Value Reference Range Interpretation Comments MAGNESIUM (test code = MAG) 2.20 mg/dL 1.80-2.40 N CBC W/AUTO [id number] 07:39:00 Test Item Value Reference Range Interpretation [...] REQUIRED (test code NO = MDIFF) GLUCOSE [id number] 05:20:00 Test Item Value Reference Range Interpretation Comments GLUCOSE BEDSIDE (test 148 MG/DL 70-110 H Perfor med by certified code = GLUBED) 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 press operator at [facility] - XR CHEST 1 [id number] 00:00:00 [facility] 1955 Sex: F FAX: Delmy Howell [phone] [place]: St: ADM FAX: Serge Shetty MD FAX: Jim Mazariegos MD [phone] FAX: Adonis Canchola MD [phone] Name: JENN MOTTA [facility] [place] : 1955 Age/S: 67/F [address] [place] [address] Blvd Unit #: [id number] Loc: [place] [address] Phys: Serge Shetty MD Acct: [id number] Dis Date: Status: ADM IN PHONE #: [phone] Exam Date: 07/01/2022 1532 FAX #: [phone] Reason: hypoxia EXAMS: CPT CODE: [id number] XR CHEST 1 V 11258 PROCEDURE INFORMATION: Exam: XR Chest Exam date and time: 07/01/2022 3:05 PM Age: 67 years old Clinical indication: Other: Hypoxia TECHNIQUE: Imaging protocol: Radiologic exam of the chest. Views: 1 view. COMPARISON: CT CHEST W/O CONTRAST 06/22/2022 9:53 AM FINDINGS: Tubes, catheters and devices: Left chest dialysis catheter with the tip in the right atrium. Lungs: Hazy airspace and interstitial opacities within both lungs, which may represent pulmonary edema, pneumonitis and/or atelectasis. Pleural spaces: Moderate right pleural effusion. Left costophrenic angle sharp. No definite pneumothorax. Heart/Mediastinum: Cardiac silhouette moderately enlarged. Vasculature: Tortuous aorta with calcifications at the arch. Bones/mesha ints: Cervical spine fusion hardware. Degenerative changes within the spine. IMPRESSION: 1. Cardiac silhouette moderately enlarged. 2. Moderate right pleural effusion. 3. Hazy airspace and interstitialopacities within both lungs, which may represent pulmonary edema, pneumonitis and/or atelectasis. at 1741 Reported and signed by: Sha Hernandez M.D. CC: Delmy Ashton MD; Serge Shetty MD; Jim Dhillon MD; Adonis Gaytan MD Technologist: RT Max(R) Trnscrd Date/Time/By: 07/01/2022 (1741) : By: [email or web address] Orig Print D/T: S: 07/01/2022 (5229) PAGE 1 Signed Report- US PELVIS [id number] 00:00:00 [facility]NA DEADWOODName: JENN MOTTA : 1955 Sex: F Name: JENN MOTTA [facility] [place] : 1955 Age/S: 67 / F [address] [place] [address] Unit #: [id number] Loc: [place] [address] Phys: Adonis Gaytan MD Acct: [id number] Dis Date: Status: ADM IN PHONE #: [phone] Exam Date: 07/01/2022 1406 FAX #: [phone] Reason: DUB...2 weeks of bleeding after 15 years of men EXAMS: CPT CODE: [id number] US PELVIS COMPLETE 76774 PROCEDURE INFORMATION: Exam: US Pelvis Complete, Transabdominal [...] Technologist: Karol Quinn RDMS(AB)(OB) Trnscb Date/Time: 07/01/2022 (1733) [email or web address] Orig Print D/T: S: 07/01/2022 (7044) Probe: PAGE 1 Signed Report- US TRANSVAGINAL NON [id number] 00:[facility] : 1955 Sex: F Name: JENN MOTTA [facility] : 1955 Age/S: 67 / F [address] [place] [address] Unit #: [id number] Loc: [place] [address] Phys: Adonis Gaytan MD Acct: [id number] Dis Date: Status: ADM IN PHONE #: [phone] Exam Date: 07/01/2022 1407 FAX #: [phone] Reason: see US Pelvic Non OB Complete EXAMS: CPT CODE: [id number] [place] [address] PROCEDURE INFORMATION: Exam: US Pelvis Complete, Transabdominal and US Pelvis, Transvaginal Exam date and time: 07/01/2022 1:27 PM Age: 67 years old Clinical indication: Other: Post menopausal bleeding; Additional info: Dub. . () TECHNIQUE: Imaging protocol: Real-time complete transabdominal and transvaginal pelvic ultrasound with image documentation. Transvaginal imaging was used for better evaluation of the endometrium, adnexa, and/or cervix. COMPARISON: US DUP VEIN YEIMI 06/22/2022 10:54 AM FINDINGS: Limited exam Uterus: Uterus measures 8.8 cm length. Endometrial stripe is suboptimally visualized measuring 0.54 cm thickness. Ill-defined1.0 cm fibroid lower uterine segment; there may be additional fibroids including calcified fibroids that are not well visualized. Cervix: Fluid in the endocervical canal. Nabothian cysts. Right ovary/adnexa: Right ovary not visualized due to overlying bowel gas. Left ovary/adnexa: Left ovary not visual ized due to overlying bowel gas. Intraperitoneal space: [...] Karol Quinn RDMS(AB)(OB) Trnscb Date/Time: 07/01/2022 (1433) Donna Orig Print D/T: S: 07/01/2022 (1434) Probe: [id number] PAGE 1 Signed ReportGLUCOSE [id number] 19:48:00 Test Item Value Reference Range Interpretation Comments GLUCOSE BEDSIDE (test 143 MG/DL 70-110 H Perfor med by certified code = GLUBED) 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 press operator at [facility] GLUCOSE [id number] 18:11:00 Test Item Value Reference Range Interpretation Comments GLUCOSE BEDSIDE (test 152 MG/DL 70-110 H Perfor med by certified code = GLUBED) 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 press operator at [facility] GLUCOSE [id number] 13:24:00 Test Item Value Reference Range Interpretation Comments GLUCOSE BEDSIDE (test 120 MG/DL 70-110 H Perfor med by certified code = GLUBED) 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 press operator at [facility] BASIC METABOLIC [id number] 09:03:00 Test Item Value Reference Range Interpretation [...] the recommended for bhumika for GFRby the [facility] for Adults.The GFR will not calculate if th e sex is unknown or if thepatient's ag e is <18 years. CREATININE (test 4.1 mg/dL 0.6-1.3 H code = CREAT) CALCIUM (test code = 9.6 mg/dL 8.0-10.5 N CA) CBC W/AUTO [id number] 07:48:00 Test Item Value Reference Range Interpretation [...] REQUIRED (test NO code = MDIFF) GLUCOSE [id number] 20:09:00 Test Item Value Reference Range Interpretation Comments GLUCOSE BEDSIDE (test 172 MG/DL 70-110 H Perfor med by certified code = GLUBED) 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 press operator at [facility] GLUCOSE [id number] 15:48:00 Test Item Value Reference Range Interpretation Comments GLUCOSE BEDSIDE (test 108 MG/DL 70-110 N Perfor med by certified code = GLUBED) 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 press operator at [facility] GLUCOSE [id number] 11:35:00 Test Item Value Reference Range Interpretation Comments GLUCOSE BEDSIDE (test 172 MG/DL 70-110 H Perfor med by certified code = GLUBED) 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 press operator at [facility] GLUCOSE [id number] 08:25:00 Test Item Value Reference Range Interpretation Comments GLUCOSE BEDSIDE (test 186 MG/DL 70-110 H Perfor med by certified code = GLUBED) 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 press operator at [facility] BASIC METABOLIC [id number] 07:50:00 Test Item Value Reference Range Interpretation [...] race indifferent and is the recommended for [facility] for GFRby the [facility] for Adults.The GFR will not calculate if th e sex is unknown or if thepatient's ag e is <18 years. CREATININE (test 4.8 mg/dL 0.6-1.3 H code = CREAT) CALCIUM (test code = 9.3 mg/dL 8.0-10.5 N CA) [id number] 07:50:00 Test Item Value Reference Range Interpretation Comments PHOSPHOROUS (test code = PHOS) 5.5 MG/DL 2.5-4.9 H [id number] 07:50:00 Test Item Value Reference Range Interpretation Comments MAGNESIUM (test code = MAG) 2.32 mg/dL 1.80-2.40 N CBC W/AUTO [id number] 07:28:00 Test Item Value Reference Range Interpretation [...] REQUIRED (test code NO = MDIFF) GLUCOSE [id number] 19:59:00 Test Item Value Reference Range Interpretation Comments GLUCOSE BEDSIDE (test 141 MG/DL 70-110 H Perfor med by certified code = GLUBED) 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 press operator at [facility] GLUCOSE [id number] 18:58:00 Test Item Value Reference Range Interpretation Comments GLUCOSE BEDSIDE (test 156 MG/DL 70-110 H Perfor med by certified code = GLUBED) 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 press operator at [facility] GLUCOSE [id number] 11:35:00 Test Item Value Reference Range Interpretation Comments GLUCOSE BEDSIDE (test 112 MG/DL 70-110 H Perfor med by certified code = GLUBED) 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 press operator at [facility] GLUCOSE [id number] 09:19:00 Test Item Value Reference Range Interpretation Comments GLUCOSE BEDSIDE (test 167 MG/DL 70-110 H Perfor med by certified code = GLUBED) 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 press operator at [facility] BASIC METABOLIC [id number] 08:14:00 Test Item Value Reference Range Interpretation [...] 9.1 mg/dL 8.0-10.5 N CA) BASIC METABOLIC [id number] 06:43:00 Test Item Value Reference Range Interpretation [...] the recommended for bhumika for GFRby the [facility] for Adults.The GFR will not calculate if th e sex is unknown or if thepatient's ag e is <18 years. CREATININE (test 3.9 mg/dL 0.6-1.3 H code = CREAT) CALCIUM (test code = 9.3 mg/dL 8.0-10.5 N CA) COMMENTS: To be done morning of Heart CathCBC W/AUTO [id number] 06:23:00 Test Item Value Reference Range Interpretation [...] To be done morning of Heart CathGLUCOSE [id number] 21:04:00 Test Item Value Reference Range Interpretation Comments GLUCOSE BEDSIDE (test 99 MG/DL 70-110 N Perfor med by certified code = GLUBED) 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 press operator at [facility] GLUCOSE [id number] 16:53:00 Test Item Value Reference Range Interpretation Comments GLUCOSE BEDSIDE (test 147 MG/DL 70-110 H Perfor med by certified code = GLUBED) 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 press operator at [facility] GLUCOSE [id number] 15:43:00 Test Item Value Reference Range Interpretation Comments GLUCOSE BEDSIDE (test 154 MG/DL 70-110 H Perfor med by certified code = GLUBED) 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 press operator at [facility] [id number] 14:34:00 Test Item Value Reference Range Interpretation Comments ACT-ISTAT (test code 281 SEC 74-137 H Perform ed by certified = ACTI) 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 press operator at [facility] [id number] 08:42:00 Test Item Value Reference Range Interpretation Comments HGBA1C% (test code = HGBA1C%) 5.8 %A1C 4.8-6.0 N GLUCOSE [id number] 08:37:00 Test Item Value Reference Range Interpretation Comments GLUCOSE BEDSIDE (test 171 MG/DL 70-110 H Perfor med by certified code = GLUBED) 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 press operator at [facility] CBC W/AUTO [id number] 08:24:00 Test Item Value Reference Range Interpretation [...] (test code NO = MDIFF) BASIC METABOLIC [id number] 07:56:00 Test Item Value Reference Range Interpretation [...] 9.4 mg/dL 8.0-10.5 N CA) COAGULATION TIME [id number] 07:05:00 Test Item Value Reference Range Interpretation Comments COAGULATION TIME 245 SECONDS Performed b y ACTIVATED (test code = certi fied 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 press operator ACT) at [facility] COAGULATION TIME [id number] 07:05:00 Test Item Value Reference Range Interpretation Comments COAGULATION TIME 234 SECONDS Performed b y ACTIVATED (test code = certi fied 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 press operator ACT) at [facility] GLUCOSE [id number] 06:07:00 Test Item Value Reference Range Interpretation Comments GLUCOSE BEDSIDE (test 170 MG/DL 70-110 H Perfor med by certified code = GLUBED) 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 press operator at [facility] GLUCOSE [id number] 19:40:00 Test Item Value Reference Range Interpretation Comments GLUCOSE BEDSIDE (test 143 MG/DL 70-110 H Perfor med by certified code = GLUBED) 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 press operator at [facility] [id number] 17:22:00 Test Item Value Reference Range Interpretation Comments ACT-ISTAT (test code 275 SEC 74-137 H Perform ed by certified = ACTI) 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 press operator at [facility] [id number] 16:11:00 Test Item Value Reference Range Interpretation Comments ACT-ISTAT (test code 251 SEC 74-137 H Perform ed by certified = ACTI) 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 press operator at [facility] GLUCOSE [id number] 14:10:00 Test Item Value Reference Range Interpretation Comments GLUCOSE BEDSIDE (test 192 MG/DL 70-110 H Perfor med by certified code = GLUBED) 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 press operator at [facility] GLUCOSE [id number] 11:52:00 Test Item Value Reference Range Interpretation Comments GLUCOSE BEDSIDE (test 215 MG/DL 70-110 H Perfor med by certified code = GLUBED) 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 press operator at [facility] COVID 19 Asymptomatic IH [id number] 10:33:00 Test Item Value Reference Range Interpretation Comments COVID 19 Asymptomatic Negative Negative A nega tive result is IH AG (test code = presumpti ve and should COVNONPUIAG) be confirmedwit h an FDA authorized mole cular assay, if neces lisa forpatient asmita gement.A positive result does not rule out co-inf [...] moderate, high or waivedcomplexit y tests. GLUCOSE [id number] 08:19:00 Test Item Value Reference Range Interpretation Comments GLUCOSE BEDSIDE (test 220 MG/DL 70-110 H Perfor med by certified code = GLUBED) 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 press operator at [facility] COMPREHENSIVE METABOLIC [id number] 07:53:00 Test Item Value Reference Range Interpretation [...] recommended for bhumika for GFRby the [facility] for Ad[facility].The GFR will [...] 20-125 H TOTAL (test code = ALKP) [id number] 07:53:00 Test Item Value Reference Range Interpretation Comments PHOSPHOROUS (test code = PHOS) 6.8 MG/DL 2.5-4.9 H [id number] 07:53:00 Test Item Value Reference Range Interpretation Comments MAGNESIUM (test code = MAG) 2.24 mg/dL 1.80-2.40 GLUCOSE [id number] 06:28:00 Test Item Value Reference Range Interpretation Comments GLUCOSE BEDSIDE (test 214 MG/DL 70-110 H Perfor med by certified code = GLUBED) 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 press operator at [facility] CBC W/AUTO [id number] 05:40:00 Test Item Value Reference Range Interpretation [...] To be done morning of Heart CathRBC [id number] 05:40:00 Test Item Value Reference Range Interpretation Comments ANISOCYTOSIS (test code = ANISO) SLIGHT MACROCYTOSIS (test code = MACR) FEW COMMENTS: To be done morning of Heart Cath- XR FOOT 3 + V [id number] 00:00:00 [facility] Watson : 1955 Sex: F FAX: Agus JonVerónica becker Radha [phone] [place]: St: ADM FAX: Sybil Marques MD [phone] FAX:Jim Mazariegos MD [phone] Name: JENN MOTTA [facility] : 1955 Age/S: 67/F [address] [place] [address] Unit #: [id number] Loc: G.4421 [place] [address] Phys: Sybil Byers MD Acct: [id number] Dis Date: Status: ADM IN PHONE #: [phone] Exam Date: 06/25/2022 1610 FAX #: [phone] Reason: L foot ulcers EXAMS: CPT CODE: [id number] XR FOOT 3 + V LT 03182 PROCEDURE INFORMATION: Exam: XR Left Foot Exam [...] calcifications seen about the left foot and ankle. No plain film evidence of osteomyelitis. Notes: If there is further concern, recommend follow-up rad iographs or MRI for complete assessment. IMPRESSION: Soft [...] By: [email or web address] Orig Print D/T: S: 06/26/2022 (0842) PAGE 1 Signed ReportGLUCOSE [id number] 19:44:00 Test Item Value Reference Range Interpretation Comments GLUCOSE BEDSIDE (test 198 MG/DL 70-110 H Perfor med by certified code = GLUBED) 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 press operator at [facility] GLUCOSE [id number] 16:13:00 Test Item Value Reference Range Interpretation Comments GLUCOSE BEDSIDE (test 189 MG/DL 70-110 H Perfor med by certified code = GLUBED) 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 press operator at [facility] GLUCOSE [id number] 11:12:00 Test Item Value Reference Range Interpretation Comments GLUCOSE BEDSIDE (test 186 MG/DL 70-110 H Perfor med by certified code = GLUBED) 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 press operator at [facility] CBC W/AUTO [id number] 10:49:00 Test Item Value Reference Range Interpretation [...] MDIFF) COMMENTS: Daily while on HeparinCOMPREHENSIVE METABOLIC [id number] 07:37:00 Test Item Value Reference Range Interpretation [...] the recommended for bhumika for GFRby the [facility] on for Adults.The GFR [...] H TOTAL (test code = ALKP) GLUCOSE [id number] 05:53:00 Test Item Value Reference Range Interpretation Comments GLUCOSE BEDSIDE (test 159 MG/DL 70-110 H Perfor med by certified code = GLUBED) 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 press operator at [facility] GLUCOSE [id number] 19:09:00 Test Item Value Reference Range Interpretation Comments GLUCOSE BEDSIDE (test 171 MG/DL 70-110 H Perfor med by certified code = GLUBED) 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 press operator at [facility] GLUCOSE [id number] 15:56:00 Test Item Value Reference Range Interpretation Comments GLUCOSE BEDSIDE (test 159 MG/DL 70-110 H Perfor med by certified code = GLUBED) 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 press operator at [facility] GLUCOSE [id number] 12:56:00 Test Item Value Reference Range Interpretation Comments GLUCOSE BEDSIDE (test 110 MG/DL 70-110 N Perfor med by certified code = GLUBED) 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 press operator at [facility] ACUTE HEPATITIS [id number] 12:08:00 Test Item Value Reference Range Interpretation Comments AB HEPATITIS A IGM (test NON REACTIVE INDEX NON REACT. code = HAVMAB) AG HEPATITIS B SURFACE NON REACTIVE INDEX NonReactive (test code = HBSAG) AB HEPATITIS B CORE IGM NON REACTIVE INDEX NON REACT. (test code = HBCMAB) AB HEPATITIS C (test code NON REACTIVE INDEX NON REACT. = HCVAB) AB HEPATITIS B [id number] 12:08:00 Test Item Value Reference Range Interpretation Comments AB HEPATITIS B 11.7 mIU/mL See_Comment Verified by repeat SURFACE (test code = analysi s Status of HBSAB) Immunity Anti-H Bs Level --- I nconsis tent with Immun ity 0.0 - 9.9Consistent with Immunity >9.9Pe rformed At: [facility] [id number] [place], [place] [id number] Kyle L MD Ph:[phone] [Automated mess age] The system [employer] generated this result transmitted ref erence range: Immunity >9.9. The reference r chikis was not used to interpret this result as normal/abnor mal. BASIC METABOLIC [id number] 08:08:00 Test Item Value Reference Range Interpretation [...] code = 9.9 mg/dL 8.0-10.5 N CA) [id number] 08:08:00 Test Item Value Reference Range Interpretation Comments PHOSPHOROUS (test code = PHOS) 7.1 MG/DL 2.5-4.9 H [id number] 08:08:00 Test Item Value Reference Range Interpretation Comments MAGNESIUM (test code = MAG) 2.64 mg/dL 1.80-2.40 H CBC W/AUTO [id number] 07:09:00 Test Item Value Reference Range Interpretation [...] = MDIFF) COMMENTS: Daily while on HeparinGLUCOSE [id number] 05:45:00 Test Item Value Reference Range Interpretation Comments GLUCOSE BEDSIDE (test 190 MG/DL 70-110 H Perfor med by certified code = GLUBED) 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 press operator at [facility] GLUCOSE [id number] 19:34:00 Test Item Value Reference Range Interpretation Comments GLUCOSE BEDSIDE (test 159 MG/DL 70-110 H Perfor med by certified code = GLUBED) 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 press operator at [facility] GLUCOSE [id number] 17:04:00 Test Item Value Reference Range Interpretation Comments GLUCOSE BEDSIDE (test 167 MG/DL 70-110 H Perfor med by certified code = GLUBED) 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 press operator at [facility] UA RFLX MICR CULT IF [id number] 16:38:00 Test Item Value Reference Range Interpretation [...] for culture: Gross HematuriaSpecimen Description: CLEAN CATCHGLUCOSE [id number] 12:14:00 Test Item Value Reference Range Interpretation Comments GLUCOSE BEDSIDE (test 147 MG/DL 70-110 H Perfor med by certified code = GLUBED) 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 press operator at [facility] THROMBOPLASTIN TIME [id number] 11:46:00 Test Item Value Reference Range Interpretation Comments THROMBOPLASTIN TIME 72.0 Seconds 25.0-39.5 H Therape utic Range: PARTIAL (test code = 50.4 - 88.3 Seconds PTT) Effective 10/22/2018 GLUCOSE [id number] 06:01:00 Test Item Value Reference Range Interpretation Comments GLUCOSE BEDSIDE (test 246 MG/DL 70-110 H Perfor med by certified code = GLUBED) 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 press operator at [facility] THROMBOPLASTIN TIME [id number] 05:17:00 Test Item Value Reference Range Interpretation Comments THROMBOPLASTIN TIME 53.5 Seconds 25.0-39.5 H Therape utic Range: PARTIAL (test code = 50.4 - 88.3 Seconds PTT) Effective 10/22/2018 CBC W/AUTO [id number] 04:16:00 Test Item Value Reference Range Interpretation [...] Daily while on Heparin- CT CHEST W/O [id number] 00:00:00 [facility] : 1955 Sex: F Name: JENN MOTTA [facility] [place] : 1955 Age/S: 67 / F [address] [place] [address] Bl Unit #: [id number] Loc: [place] [address] Phys: Funk,Alejapaula OROZCO Acct: [id number] Dis Date: Status: ADM IN PHONE #: [phone] Exam Date: 06/22/2022 0955 FAX #: [phone] Reason: Dyspnea, CAD EXAMS: CPT CODE: [id number] CT CHEST W/O CONTRAST 16119 PROCEDURE INFORMATION: Exam: CT Chest Without Contrast; Diagnostic Exam date and time: 06/22/2022 9:53 AM Age: 67 years old Clinical indication: Other: Dyspnea, cad TECHNIQUE: Imaging protocol: Diagnostic computed tomography of the chest without contrast. Radiation optimization: All CT scans at this facility use at least one of these dose optimization techniques: automated exposure control; mA and/or kV adjustment per patient size (includes targeted exams where dose is matched to clinical indication); or iterative reconstruction. COMPARISON: CT CHEST W/O CONTRAST 06/13/2022 10:08 AM FINDINGS: Tubes, catheters and [...] is a small amount of ascites in thevisualized abdomen. Bones/joints: The patient is status post lower lumbar spinal fusion. The spine demonstrates moderate degenerative changes at multiple levels. There are diffuse enthesopathic changes consistent with benign diffuse idiopathic skeletal hyperostosis (DISH). [...] 1 Signed Report (CONTINUED) Name: JENN MOTTA [facility] : 1955 Age/S: 67 / F [address] [place] [address] Blvd Unit #: [id number] Loc: [place] [address] Phys: Aleja Fukn Acct: [id number] Dis Date: Status: ADM IN PHONE #: [phone] Exam Date: 06/22/2022954 FAX #: [phone] Reason: Dyspnea, CAD EXAMS: CPT CODE: [id number] CT CHEST W/O CONTRAST 11987 (Continued) 4. There is a small pericardial effusion, slightly increased in size compared to prior study. 5. There is a small amount of ascites in the visualized abdomen. at 0904 Reported and signed by: Jim Uriostegui M.D. CC: Delmy Ashton MD; Jim Dhillon MD; Aleja OROZCO Technologist:RT Hailey(R)(CT) CTDI: DLP: Trnscb Date/Time: 06/23/2022 (903) [email or web address] Orig Print D/T: S: 06/23/2022 (903) PAGE 2 Signed Report GLUCOSE [id number] 22:01:00 Test Item Value Reference Range Interpretation Comments GLUCOSE BEDSIDE (test 186 MG/DL 70-110 H Perfor med by certified code = GLUBED) 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 press operator at [facility] THROMBOPLASTIN TIME [id number] 21:11:00 Test Item Value Reference Range Interpretation Comments THROMBOPLASTIN TIME 51.2 Seconds 25.0-39.5 H Therape utic Range: PARTIAL (test code = 50.4 - 88.3 Seconds PTT) Effective 10/22/2018 GLUCOSE [id number] 18:42:00 Test Item Value Reference Range Interpretation Comments GLUCOSE BEDSIDE (test 125 MG/DL 70-110 H Perfor med by certified code = GLUBED) 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 press operator at [facility] THROMBOPLASTIN TIME [id number] 13:02:00 Test Item Value Reference Range Interpretation Comments THROMBOPLASTIN TIME 40.0 Seconds 25.0-39.5 H Therape utic Range: PARTIAL (test code = 50.4 - 88.3 Seconds PTT) Effective 10/22/2018 PTH INTACT [id number] 12:41:00 Test Item Value Reference Range Interpretation Comments PARATHYROID HORMONE INTACT (test 661.2 pg/mL 14.0-72.0 H code = PARAI) B-TYPE NATRIURETIC [id number] 12:23:00 Test Item Value Reference Range Interpretation Comments B-TYPE NATRIURETIC PEPTIDE (test 557.0 PG/ML 0-100 H code = BNP) PROTHROMBIN [id number] 12:06:00 Test Item Value Reference Range Interpretation [...] (to prevent recurrent infar ct). BASIC METABOLIC [id number] 12:04:00 Test Item Value Reference Range Interpretation [...] the recommended for bhumika for GFRby the [facility] on for Adults.The GFR will not calculate if th e sex is unknown or if thepatient's ag e is <18 years. CREATININE (test 7.0 mg/dL 0.6-1.3 H code = CREAT) CALCIUM (test code = 9.4 mg/dL 8.0-10.5 N CA) CBC W/AUTO [id number] 11:56:00 Test Item Value Reference Range Interpretation [...] REQUIRED (test NO code = MDIFF) GLUCOSE [id number] 05:45:00 Test Item Value Reference Range Interpretation Comments GLUCOSE BEDSIDE (test 214 MG/DL 70-110 H Perfor med by certified code = GLUBED) 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 press operator at [facility] THROMBOPLASTIN TIME [id number] 01:28:00 Test Item Value Reference Range Interpretation Comments THROMBOPLASTIN TIME 30.3 Seconds 25.0-39.5 N Therape utic Range: PARTIAL (test code = 50.4 - 88.3 Seconds PTT) Effective 10/22/2018 COMMENTS: DRAW PTT 6 HOURS AFTER INITIATION OF HEPARIN- DUP VEIN [id number] 00:00:00[facility]OD[facility]: JENN MOTTA : 1955 Sex: F Name: JENN MOTTA [facility] [place] : 1955 Age/S: 67 / F [address] [place] [address] Unit #: [id number] Loc: [place] [address] Phys: Aleja Funk Acct: [id number] Dis Date: Status: ADM IN PHONE #: [phone] Exam Date: 06/22/2022 1510 FAX #: [phone] Reason: Vein mapping for CABG EXAMS: CPT CODE: [id number] [facility] VEIN [facility] [address] PROCEDURE INFORMATION: Exam: US Duplex Lower Extremity Veins; Vein mapping Exam date and time: 06/22/2022 10:54 AM Age: 67 years old Clinical indication: Screening exam; Pre op; Additional info: Vein mapping for cabg TECHNIQUE: Imaging protocol: Real-time duplex ultrasound of the Lower Extremities with 2-D solis scale, color Doppler flow and spectral waveform analysis with image documentation. Complete exam focused on the bilateral lower extremity veins for vein mapping. COMPARISON: US DOP ART SGL LEVEL YEIMI 06/22/2022 10:42 AM FINDINGS: Right superficialveins: Normal Doppler waveforms. Normal compressibility. Greater saphenous [...] vein-lower thigh: 4.1 mm Left greater saphenous vein- upper le mm Left greater saphenous vein-mid le.5 mm Left greater saphenous vein-lower le.8 mm Soft tissues: Unremarkable. IMPRESSION: Greater saphenous vein is patent. Vein mapping as described. Electronically Signed by Amador Obando on06/22/2022 at 1730 Reported and signed by: Glenn Obando M.D. CC: Delmy Ashton MD; Jim Dhillon MD; Aleja OROZCO Technologist: Monty Thomas Trnscb Date/Time: 06/22/2022 (1729) [email or web address] Orig Print D/T: S: 06/22/2022 (1729) Probe: PAGE 1 Signed Report- DOP ART SGL LEVEL [id number] 00:00[facility] 1955 Sex: F Name: JENN MOTTA [facility] : 1955 Age/S: 67 / F [address] [facility] Unit #: [id number] Loc: [place] [address] Phys: Aleja Funk Acct: [id number] Dis Date: Status: ADM INPHONE #: [phone] Exam Date: 06/22/2022 1509 FAX #: [phone] Reason: PVD EXAMS: CPT CODE: [id number] DOP ART SGL LEVEL YEIMI [address]0613 PROCEDURE INFORMATION: Exam: US Duplex Lower Extremity [...] 1 Signed Report (CONTINUED) Name: JENN MOTTA [facility] : 1955 Age/S: 67 / F [address] [facility] [address] Unit #: [id number] Loc: [place] [address] Phys: Aleja Funk Acct: [id number] Dis Date: Status: ADM IN PHONE #: [phone] Exam Date: 06/22/2022 1509 FAX #: [phone] Reason: PVD EXAMS: CPT CODE: [id number] DOP ART SGL LEVEL YEIMI 23164 (Continued) CC: Delmy Werner; Jim Dhillon MD; Aleja OROZCO Technologist: Monty Thomas Trnscb Date/Time: 06/22/2022 (1654) [id number] Orig Print D/T: S: 06/22/2022 (1654) Probe: PAGE 2 Signed Report- DUP EXTRACRANIAL [id number] 00:00:00 [facility] 1955 Sex: F Name: JENN MOTTA [facility] : 1955 Age/S: 67 / F [address] [place] [address] Blvd Unit #: [id number] Loc: [place] [address] Phys: Aleja Funk Acct: [id number] Dis Date: Status: ADM IN PHONE #: [phone] Exam Date: 06/22/2022 1509 FAX #: [phone] Reason: CABG workup EXAMS: CPT CODE: [id number] [facility] EXTRACRANIAL YEIMI [address] PROCEDURE INFORMATION: Exam: US Duplex Bilateral Extracranial Arteries, Carotid Arteries Exam date and time: 06/22/2022 10:32 AM Age: 67 years old Clinical indication: Screening exam; Patient HX: Pre op; Additional info: Cabg workup TECHNIQUE: Imaging protocol: Real-time Duplex ultrasound scan of the bilateral carotid and vertebral arteries combining solis s [place], color Doppler and spectral waveform analysis. Bilateral exam. Exam focused on the carotid arteries. COMPARISON: CT CHEST W/O CONTRAST 06/22/2022 9:53 AM FINDINGS: Right common carotid artery: Plaque formation. No occlusion or stenosis. Waveforms are normal. Right internal carotid artery: Plaque formation. No occlusion or stenosis. Waveforms are normal. Right ICA/CCA ratio: Within normal limits.Right external carotid artery: No stenosis in the origin. Right vertebral artery: Unremarkable. Antegrade flow. Left common carotid artery: Plaque formation. No occlusion or stenosis. Waveforms are normal. Left internal carotid artery: Plaque formation. No occlusion or stenosis. Waveforms are normal. Left ICA/CCA ratio: Within normal limits. Left external carotid artery: No stenosis in the origin. Left vertebral artery: Unremarkable. Antegrade flow. IMPRESSION: No carotid [...] 1 Signed Report (CONTINUED) Name: JENN MOTTA [facility] : 1955 Age/S: 67 /F [address] [place] [address] Unit #: [id number] Loc: [place] [address] Phys: Aleja Funk Acct: [id number] Dis Date: Status: ADM IN PHONE #: [phone] Exam Date: 06/22/2022 1504 FAX #: [phone] Reason: CABG workup EXAMS: CPT CODE: [id number] DUP EXTRACRANIAL YEIMI [id number] (Continued) CC: Kerry Ashton MD; Jim Dhillon MD; Aleja OROZCO Technologist: Monty Thomas Trnndb Date/Time: 06/22/2022 (1806) Afua Orig Print D/T: S: 06/22/2022 (1807) Probe: PAGE 2 Signed Report GLUCOSE [id number] 20:43:00 Test Item Value Reference Range Interpretation Comments GLUCOSE BEDSIDE (test 226 MG/DL 70-110 H Perfor med by certified code = GLUBED) 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 press operator at [facility] CBC W/AUTO [id number] 20:20:00 Test Item Value Reference Range Interpretation [...] NOT ALREADY DONE WITHIN LAST 24 HOURSGLUCOSE [id number] 18:45:00 Test Item Value Reference Range Interpretation Comments GLUCOSE BEDSIDE (test 168 MG/DL 70-110 H Perfor med by certified code = GLUBED) 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 press operator at [facility] PROTHROMBIN [id number] 18:42:00 Test Item Value Reference Range Interpretation [...] ALKP) COMMENTS: If not already done in ERPOC [id number] 16:16:00 Test Item Value Reference Range Interpretation Comments POC glucose (test 89 mg/dL 65-99 [employer] Offbearer N desire: Rubin code = 07872-9) [employer] I D: [id number] able: RN Notified [facility] [id number] 16:16:00 Test Item Value Reference Range Interpretation Comments POC glucose (test 89 mg/dL 65-99 [employer] Offbearer N desire: Rubin code = 83490-2) [employer] I D: [id number] able: RN Notified [facility] [id number] 16:16:00 Test Item Value Reference Range Interpretation Comments POC glucose (test 89 mg/dL 65-99 [employer] Offbearer N desire: Rubin code = 86178-9) [employer] I D: [id number] able: RN Notified [facility] [id number] 13:03:01 Test Item Value Reference Range Interpretation Comments POC sodium (test code = 140 mmol/L 597-418 5637-0) POC potassium (test code 3.9 mmol/L 3.5-5.0 = 6298-4) POC glucose (test code = 78 mg/dL 65-99 2339-0) POC creatinine (test 4.6 mg/dl 0.5-0.9 H Operato r Name: code = 84707-5) Marko kyle ID: [id number] POC hemoglobin (test 8.5 g/dL 12.0-16.0 L code = 718-7) POC hematocrit (test 25 % 37-47 L code = 4544-3) Lab Interpretation (test Abnormal code = 86309-0) [facility] [id number] 13:03:01 Test Item Value Reference Range Interpretation Comments POC sodium (test code = 140 mmol/L 631-495 0022-0) POC potassium (test code 3.9 mmol/L 3.5-5.0 = 6298-4) POC glucose (test code = 78 mg/dL 65-99 2339-0) POC creatinine (test 4.6 mg/dl 0.5-0.9 H Operato r Name: code = 59812-4) Marko kyle ID: [id number] POC hemoglobin (test 8.5 g/dL 12.0-16.0 L code = 718-7) POC hematocrit (test 25 % 37-47 L code = 4544-3) Lab Interpretation (test Abnormal code = 77281-9) [facility] [id number] 13:03:01 Test Item Value Reference Range Interpretation Comments POC sodium (test code = 140 mmol/L 675-089 7875-0) POC potassium (test code 3.9 mmol/L 3.5-5.0 = 6298-4) POC glucose (test code = 78 mg/dL 65-99 2339-0) POC creatinine (test 4.6 mg/dl 0.5-0.9 H Operato r Name: code = 34669-5) Marko kyle ID: [id number] POC hemoglobin (test 8.5 g/dL 12.0-16.0 L code = 718-7) POC hematocrit (test 25 % 37-47 L code = 4544-3) Lab Interpretation (test Abnormal code = 79661-8) [facility] [id number] 13:03:00 Test Item Value Reference Range Interpretation Comments Estimated GFR (test 9 mL/min/1.73 m2 A Caterg ory Units code = 89337-7) Interpretati onG1 >=90 Normal or highG 2 60-89 Mildly decrease dG3a 45-59 Mildly to moderately decr hsufqX2q 30-44 Moderatel y to severely decrea sedG4 15-29 Severely decreasedG5 <15 Kidney failureThe eGFR was calculated usin g the Chronic Kidney Disease Epidemiology Collaboration ( CKD-EPI) equation. Interpretation is based on recommendati ons of the National [facility]-Kidn ey Disease Outcome s Quality Initiat hermes (NKF-KDOQI) pub [facility] in 2013. Lab Interpretation Abnormal (test code = 48371-6) [facility] [id number] 13:03:00 Test Item Value Reference Range Interpretation Comments Estimated GFR (test mL/min/1.73 m2 A Caterg ory Units code = 76306-2) Interpretati onG1 >=90 Normal or highG 2 60-89 Mildly decrease dG3a 45-59 Mildly to moderately decr ovnzvQ7u 30-44 Moderate ly to severely decrea sedG4 15-29 Severely decreasedG5 <15 Kidney failureThe eGFR was calculated usin g the Chronic Kidney Disease Epidemiology Collaboration ( CKD-EPI) equation. Interpretation is based on recommendati ons of the [facility] Disease Outcome s Quality Initiat hermes (NKF-KDOQI) pub lished in 2013. Lab Interpretation Abnormal (test code = 90049-9) [facility] [id number] 13:03:00 Test Item Value Reference Range Interpretation Comments Estimated GFR (test 9 mL/min/1.73 m2 Malena Luis souza Units code = 90811-8) Interpretati onG1 >=90 Normal or highG 2 60-89 Mildly decrease dG3a 45-59 Mildly to moderately decr twlxbL0n 30-44 Moderatel y to severely decrea sedG4 15-29 Severely decreasedG5 <15 Kidney failureThe eGFR was calculated usin g the Chronic Kidney Disease Epidemiology Collaboration ( CKD-EPI) equation. Interpretation is based on recommendati ons of the [facility] Disease Outcome s Quality Initiat hermes (NKF-KDOQI) pub lished in 2013. Lab Interpretation Abnormal (test code = 84462-6) [facility] [id number] 19:03:18 Test Item Value Reference Range Interpretation Comments Case number (test code = [id number]) Surgical pathology See link below for report (test code = PDF Lab Report 2255) Result status (test code This is Final Report = [id number]) for [id number] [facility] [id number] 19:03:18 Test Item Value Reference Range Interpretation Comments Case number (test code = [id number]) Surgical pathology See link below for report (test code = PDF Lab Report 2255) Result status (test code This is Final Report = [id number]) for [id number] [facility] [id number] 19:03:18 Test Item Value Reference Range Interpretation Comments Case number (test code = [id number]) Surgical pathology See link below for report (test code = PDF Lab Report 2255) Result status (test code This is Final Report = [id number]) for [id number] [facility]Post [id number] 10:49:53 Test Item Value Reference Range Interpretation Comments Ventricular rate (test 101 code = 253) Atrial rate (test code 101 = 255) GA interval (test code 160 = 266) QRSD [...] wave inversion now evident in Inferior leads- [facility] Pre/Post [id number] 10:49:53 Test Item Value Reference Range Interpretation Comments Ventricular rate (test code = 253) Atrial rate (test code = 255) GA interval (test code = 266) QRSD interval [...] wave inversion now evident in Inferior leads- [facility] Pre/Post [id number] 10:49:53 Test Item Value Reference Range Interpretation Comments Ventricular rate (test 101 code = 253) Atrial rate (test code 101 = 255) GA interval (test code 160 = 266) QRSD [...] wave inversion now evident in Inferior leads- [facility] GLUCOSE (AUTOMATED)2020-10-14 12:45:50 Test Item Value Reference Range Interpretation Comments POCT GLU (test code = 7222834287) 255 mg/dL 70-110 H Lab Interpretation (test code = Abnormal 92648-1) [facility] [id number] 12:35:00 Test Item Value Reference Range Interpretation Comments POCT Glu (age>30days) (test code = 255 mg/dL 70-110 A 3342) Lab Interpretation (test code = Abnormal 65251-4) [facility]-CoV-2 (COVID-19) RNA [Presence] in Respiratory specimen by JUANY with probe [id number] 01:15:19 Test Item Value Reference Range Interpretation Comments SARS-CoV-2 (COVID-19) RNA Not detected Not-Detected [Presence] in Respiratory specimen by JUANY with probe detection (test code = 54017-8) [facility] [id number] 12:03:00 Test Item Value Reference Range Interpretation Comments POCT Glu (age>30days) (test code = 142 mg/dL 70-110 A 3342) Lab Interpretation (test code = Abnormal 75189-4) [facility]-CoV-2 (COVID-19) RNA [Presence] in Respiratory specimen by JUANY with probe [id number] 18:03:16 Test Item Value Reference Range Interpretation Comments SARS-CoV-2 (COVID-19) RNA Not detected Not-Detected [Presence] in Respiratory specimen by JUANY with probe detection (test code = 02100-6) [facility]
[2022-08-26 19:21] LABS: Absolute Lymphocytes (CBC) 0.3 K/uL (0.7-4.9); Hematocrit 27.3 % (36.0-45.0); Lymphocytes % 1.6 % (15.3-44.8); MCV 91.2 fL (80-100); MPV 6.7 fL (7.6-11.3); RBC Red Blood Cell Count 2.99 M/uL (3.86-4.86)
[2022-08-26 19:25] LABS: Protime INR 1.37
[2022-08-26 19:35] LABS: Albumin 2.5 g/dL (3.4-5.0); Bilirubin Total 0.7 mg/dL (0.2-1.0); Magnesium 2.4 mg/dL (1.6-2.4); Protein, Total 7.6 g/dL (6.4-8.2)
[2022-08-26 19:36] LABS: Potassium 5.9 mmol/L (3.5-5.1)
[2022-08-26 19:37] LABS: Troponin High Sensitivity 535.8 pg/mL (<58.9)
[2022-08-26 19:45] LABS: SARS-COV-2 RT PCR NEGATIVE (NEGATIVE)
[2022-08-26 20:50] LABS: Urine Blood 1+ (Negative); Urine Glucose Trace (Negative); Urine Protein 3+ (Negative); Urine Specific Gravity 1.025 (1.005-1.030)
[2022-08-26] MEDS ORDERED: INSULIN -REGULAR HUMAN 50 UNIT/0.5 ML ML ONE (20:53)
--- NOTE | 2022-08-26 20:54 | RAD REPORT ---
EXAM DESCRIPTION: RAD - Chest Single View - 08/26/2022 8:35 pm CLINICAL HISTORY: FEVER COMPARISON: Chest Single View dated 08/11/2022; Chest Single View dated 08/08/2022; Chest Single View d ated 06/14/2022; Chest Single View dated 06/11/2022; Thorax Wo Con dated 06/13/2022 FINDINGS: Lines: Left IJ approach dialysis catheter with tip overlying the right atrium. Lungs: Possible mild airspace disease at the right lung base. Pleural: No significant pleural effusions or pneumothorax. Cardiac: The heart size is within normal limits. Mediastinum: Within normal limits. Bones: No acute fractures. ACDF surgical but Other: None IMPRESSION: Mild right basilar opacities could reflect a mild developing pneumonia.
[2022-08-26] MEDS ORDERED: ALBUTEROL 2.5 MG/3 ML NEB SOL ONE (20:56)
[2022-08-26] MEDS ORDERED: FUROSEMIDE 100 MG/10 ML VIAL IV ONE (20:56)
[2022-08-26] MEDS ORDERED: CEFEPIME 2 GM VIAL ONE (20:56)
[2022-08-26] MEDS ORDERED: ACETAMINOPHEN 500 MG TAB ONE (20:56)
[2022-08-26] MEDS ORDERED: SOD POLYSTYREN SUL 15 GM/60 ML UCUP ONE (20:57)
[2022-08-26] MEDS ORDERED: NA CHLORIDE 0.9% 100 ML ONE (20:57)
[2022-08-26] MEDS ORDERED: NA CHLORIDE 0.9% 250 ML ONE ×4 (20:57→23:17)
[2022-08-26] MEDS ORDERED: SODIUM BICARB 50 MEQ/50ML VIAL ONE (21:02)
[2022-08-26] MEDS ORDERED: D50W 25 GM/50 ML SYRINGE IV ONE (21:02)
--- NOTE | 2022-08-26 21:02 | EDPHYS ---
Physician Documentation [facility] Name: Meseret Gallego Age: 67 yrs Sex: Female : 1955 Arrival Date: 08/26/2022 Time: 18:43 Bed 8 Private MD: ED Physician Kira Ashby HPI: 08/26 19:33 This 67 yrs old Female presents to ER via EMS with complaints of SOB. sd2 19:33 67-year-old female with a history of dialysis presents via EMS with chief complaint of sd2 shortness of breath. Patient reports she has been sick since this past Sunday. She has been having cold and flulike symptoms with no fevers but productive cough and difficulty breathing. She denies any known sick contacts. She reports because she was sick, she has not made it to dialysis since Sunday. She reports significant edema to her extremities but denies any vomiting or diarrhea. She also endorses associated belching episodes which normally occur with her gastroparesis when she has not been eating well.. Historical: - Allergies: 18:43 Codeine; ll1 18:43 Phenergan; ll1 18:43 Tape; ll1 - PMHx: 18:43 Dialysis; Hypothyroidism; Hypercholesterolemia; Hypertension; Diabetes - IDDM; ll1 Myocardial infarction; - PSHx: 18:43 section; knee; back; neck; 2 heart stents; ll1 - Immunization history:: Client reports receiving the 2nd dose of the Covid vaccine. - Social history:: Smoking status: Patient denies any tobacco usage or history of. ROS: 19:33 Constitutional: Negative for fever, chills, and weight loss, Eyes: Negative for injury, sd2 pain, redness, and discharge. 19:33 MS/Extremity: Negative for injury and deformity, Skin: Negative for injury, rash, and discoloration, Neuro: Negative for headache, numbness and tingling. 19:33 Cardiovascular: Positive for edema, Negative for chest pain, palpitations. 19:33 Respiratory: Positive for cough, dyspnea on exertion, shortness of breath, Negative for wheezing. 19:33 Abdomen/GI: Positive for abdominal pain, Negative for nausea, vomiting, and diarrhea. Exam: 19:33 Constitutional: This is a well developed, well nourished patient who is awake, alert, sd2 and in no acute distress. Head/Face: Normocephalic, atraumatic. Eyes: EOMI, normal conjunctiva bilaterally ENT: Dry mucous membranes Chest/axilla: Normal chest wall appearance and motion. Nontender with no deformity. Hemodialysis catheter noted to the left upper anterior chest wall Cardiovascular: Tachycardic rate and regular rhythm with a normal S1 and S2. No gallops, murmurs, or rubs. 2+ distal pulses. Respiratory: Lungs have equal breath sounds bilaterally, clear to auscultation and percussion. No rales, rhonchi or wheezes noted. Tachypnea present with subcostal retractions Abdomen/GI: Soft, non-tender, with normal bowel sounds. No guarding or rebound. No evidence of tenderness throughout. Skin: Various chronic wounds noted to patient's bilateral feet and hands. MS/ Extremity: Pulses equal, no cyanosis. Neurovascular intact. Full, normal range of motion. Psych: Awake, alert, with orientation to person, place and time. Behavior, mood, and affect are within normal limits. 19:33 ECG was reviewed by the Attending Physician. Sinus tachycardia, rate 125, fusion sd2 complexes present, no STEMI criteria Vital Signs: 18:44 BP 132 / 81; Pulse 126; Resp 33; Temp 100.4(TE); Pulse Ox 97% on 2 lpm NC; ll1 18:57 BP 158 / 116; Pulse 123; Resp 32; Pulse Ox 95% on 2 lpm NC; ll1 19:15 BP 132 / 69; Pulse 118; Resp 30; Pulse Ox 100% on 2 lpm NC; mb9 20:20 BP 129 / 82; Pulse 125; Resp 28; Pulse Ox 98% on 2 lpm NC; mb9 20:43 Weight 99.79 kg (M); mb9 21:28 BP 145 / 49; Pulse 116; Resp 32; Pulse Ox 100% on 2 lpm NC; mb9 22:30 BP 104 / 53; Pulse 99; Resp 28; Pulse Ox 95% on 3 lpm NC; mb9 22:40 BP 93 / 47; Pulse 95; Resp 32; Pulse Ox 95% on 3 lpm NC; mb9 23:19 BP 88 / 46; Pulse 92; Resp 22; Temp 99.9(O); Pulse Ox 100% on 2 lpm NC; mb9 23:35 BP 86 / 45; Pulse 90; Resp 21; Pulse Ox 100% on 2 lpm NC; mb9 23:54 BP 95 / 48; Pulse 88; Resp 19; Pulse Ox 100% on 2 lpm NC; mb9 MDM: 19:10 Patient medically screened. sd2 19:33 Differential Diagnosis Dehydration, electrolyte abnormality, UTI, PNA, anemia among sd2 others. Data reviewed: vital signs, nurses notes, EMS record. Consideration of Admission/Observation Patient was admitted/placed on observation. I considered the following discharge prescriptions or medication management in the emergency department Medications were administered in the Emergency Department. See MAR. Historians other than the Patient: EMS: . Spouse/Significant Other: Provides HPI. Care significantly affected by the following chronic conditions: Diabetes, Hypertension. 20:47 Management of patient was discussed with the following: Body Press Operator: Nephrology, Dr. nora Khalil, aware and will arrange for dialysis in the morning. . 20:59 Management of patient was discussed with the following: Hospitalist: . Independent nora interpretation of the following test(s) in the Emergency Department EKG: See my EKG interpretation above X-Ray: My interpretation is L basilar opacity consistent with PNA. 08/26 18:51 Order name: Blood Culture Adult (2) ll1 08/26 18:51 Order name: CBC with Diff ll1 08/26 18:51 Order name: CMP ll1 08/26 18:51 Order name: Lactate w/ 2H reflex if indic. ll1 08/26 18:51 Order name: Protime (+inr) ll1 08/26 18:51 Order name: Ptt, Activated ll1 08/26 18:51 Order name: CBC with Diff rt 08/26 18:51 Order name: CMP rt 08/26 18:51 Order name: Lactate w/ 2H reflex if indic. rt 02 18:51 Order name: Blood Culture Adult (2) rt 08/26 18:51 Order name: Troponin High Sensitivity rt 08/26 18:51 Order name: Urine Microscopic Only rt 08/26 18:51 Order name: Lipase rt 08/26 18:51 Order name: Magnesium rt 08/26 18:51 Order name: COVID-19/FLU A+B rt 08/26 18:57 Order name: Procalcitonin la1 08/26 19:26 Order name: Protime (+INR); Complete Time: 19:28 EDMS 08/26 19:26 Order name: PTT, Activated Partial Thromb; Complete Time: 19:28 EDMS 08/26 19:29 Order name: BNP sd2 08/26 19:30 Order name: CBC with Automated Diff; Complete Time: 20:25 EDMS 08/26 19:37 Order name: Comprehensive Metabolic Panel; Complete Time: 20:25 EDMS 08/26 19:37 Order name: Troponin High Sensitivity; Complete Time: 20:25 EDMS 08/26 19:37 Order name: Magnesium; Complete Time: 20:25 EDMS 08/26 19:37 Order name: Lipase; Complete Time: 20:25 EDMS 08/26 19:45 Order name: COVID-19/FLU A+B; Complete Time: 20:25 EDMS 08/26 19:49 Order name: Procalcitonin; Complete Time: 20:25 EDMS 08/26 20:05 Order name: NT PRO-BNP; Complete Time: 20:25 EDMS 08/26 20:06 Order name: Lactate w/ 2H reflex if indic.; Complete Time: 20:25 EDMS 08/26 20:50 Order name: Urine Dipstick-Ancillary; Complete Time: 20:59 EDMS 08/26 21:14 Order name: Urine Microscopic Only; Complete Time: 21:33 EDMS 08/26 22:04 Order name: Lactate w/ 2H reflex if indic. ds4 08/26 22:34 Order name: Lactate Sepsis 2 HR Follow-up; Complete Time: 22:34 EDMS 08/26 22:35 Order name: ABG la1 08/26 23:15 Order name: Wound Culture mb9 08/26 23:15 Order name: Wound Culture mb9 08/26 23:58 Order name: ABG Arterial Blood Gas EDMS 08/27 01:54 Order name: Basic Metabolic Panel EDMS 08/27 01:54 Order name: Troponin High Sensitivity EDMS 08/27 04:44 Order name: CBC with Automated Diff EDMS 08/27 05:08 Order name: Comprehensive Metabolic Panel EDMS 08/27 05:08 Order name: Troponin High Sensitivity EDMS 08/27 05:08 Order name: Lipid Profile EDMS 08/27 05:08 Order name: T4 Free EDMS 08/27 05:08 Order name: Thyroid Stimulating Hormone EDMS 08/27 06:14 Order name: Wound Culture EDAZ 08/27 06:15 Order name: Wound Culture EDAZ 08/27 07:19 Order name: Blood Culture EDAZ 08/27 07:19 Order name: Gram Stain--Aerobic Bottle EDAZ 08/27 08:12 Order name: Gram Stain--Aerobic Bottle EDAZ 08/27 08:14 Order name: Glucose, Ancillary Testing EDAZ 08/27 09:30 Order name: Gram Stain--Anaerobic Bottle EDAZ 08/27 09:31 Order name: Gram Stain--Anaerobic Bottle EDAZ 08/27 16:31 Order name: Glucose, Ancillary Testing EDAZ 08/27 20:37 Order name: Glucose, Ancillary Testing EDAZ 08/27 22:47 Order name: Hemoglobin A1c [facility] 08/28 04:04 Order name: Blood Culture EDAZ 08/28 04:04 Order name: Gram Stain--Aerobic Bottle EDAZ 08/28 04:04 Order name: Gram Stain--Anaerobic Bottle EDAZ 08/28 04:05 Order name: Blood Culture [facility] 08/28 04:05 Order name: Gram Stain--Aerobic Bottle EDAZ 08/28 04:05 Order name: Gram Stain--Anaerobic Bottle EDAZ 08/26 18:51 Order name: EKG; Complete Time: 18:52 ll08/26 18:51 Order name: Accucheck; Complete Time: 18:52 ll08/26 18:51 Order name: Cardiac monitoring; Complete Time: 18:54 ll1 08/26 18:51 Order name: EKG - Nurse/Tech; Complete Time: 18:54 ll08/26 18:51 Order name: IV Saline Lock - Large Bore; Complete Time: 18:52 ll08/26 18:51 Order name: Labs collected and sent; Complete Time: 20:09 ll08/26 18:51 Order name: O2 Per Protocol; Complete Time: 18:51 ll08/26 18:51 Order name: O2 Sat Monitoring; Complete Time: 18:51 ll08/26 18:51 Order name: Vital Signs; Complete Time: 18:51 ll1 08/26 18:51 Order name: EKG; Complete Time: 18:52 rt 08/26 18:51 Order name: EKG - Nurse/Tech; Complete Time: 18:54 rt 08/26 18:51 Order name: Chest Single View XRAY rt 08/26 18:51 Order name: Urine Dipstick-Ancillary (obtain specimen); Complete Time: 21:23 rt 08/26 20:55 Order name: RAD; Complete Time: 20:59 EDMS 08/26 20:59 Order name: CT Chest, Abdomen, Pelvis - W/Contrast sd2 08/26 21:53 Order name: CT; Complete Time: 21:59 EDMS 08/26 22:35 Order name: Foot Left 3 View XRAY la1 08/26 22:35 Order name: Foot Right 3 View XRAY la1 08/28 04:42 Order name: CBC with Automated Diff EDMS 08/28 04:56 Order name: Comprehensive Metabolic Panel EDMS 08/28 04:56 Order name: Vancomycin Level Trough EDMS 08/28 08:16 Order name: Glucose, Ancillary Testing EDMS 08/28 12:33 Order name: MRI EDMS 08/28 12:34 Order name: MRI EDMS 08/28 13:48 Order name: RAD EDMS 08/28 13:53 Order name: RAD EDMS 08/28 17:02 Order name: Glucose, Ancillary Testing EDMS 08/28 23:39 Order name: Glucose, Ancillary Testing EDMS 08/29 02:41 Order name: CBC with Automated Diff EDMS 08/29 02:58 Order name: Comprehensive Metabolic Panel EDMS Administered Medications: 21:00 Drug: Albuterol 5 mg Route: Inhalation; mb9 21:00 Drug: Kayexalate (polystyrene) 30 grams Route: PO; mb9 23:34 Follow up: Response: No adverse reaction mb9 21:02 Drug: Tylenol 1000 mg Route: PO; mb9 23:53 Follow up: Response: No adverse reaction mb9 21:03 Drug: NS 0.9% 250 ml Route: IV; Rate: bolus; Site: left antecubital; mb9 21:30 Follow up: Response: No adverse reaction; IV Status: Completed infusion mb9 21:05 Drug: D50W 50 ml Route: IVP; Site: left antecubital; mb9 23:34 Follow up: Response: No adverse reaction mb9 21:07 Drug: Insulin Regular Human 10 units {Co-Signature: tw5 (Lidia Chappell.} Route: IVP; mb9 Site: left antecubital; 23:35 Follow up: Response: No adverse reaction mb9 21:15 Drug: Cefepime 2 grams Route: IVPB; Rate: 200 ml/hr; Infused Over: 30 mins; Site: left mb9 forearm; 21:40 Follow up: Response: No adverse reaction; IV Status: Completed infusion mb9 21:15 Drug: Lasix (furosemide) 100 mg Route: IVP; Site: left antecubital; mb9 23:34 Follow up: Response: No adverse reaction mb9 21:20 Drug: Sodium Bicarbonate 50 mEq Route: IVP; Site: left antecubital; mb9 23:52 Follow up: Response: No adverse reaction mb9 22:40 CANCELLED (Other Intervention Used): morphine 2 mg IVP once over 4 mins la1 22:41 Drug: vancoMYCIN 15 mg/kg Route: IVPB; Site: right forearm; mb9 22:45 Drug: NS 0.9% 250 ml Route: IV; Rate: bolus; Site: left antecubital; mb9 23:15 Follow up: Response: No adverse reaction; IV Status: Completed infusion mb9 23:15 Drug: NS 0.9% 250 ml Route: IV; Rate: bolus; Site: left antecubital; mb9 23:52 Follow up: Response: No adverse reaction; IV Status: Completed infusion mb9 23:38 Drug: NS 0.9% 250 ml Route: IV; Rate: bolus; Site: left antecubital; mb9 08/27 00:02 Follow up: Response: No adverse reaction; IV Status: Completed infusion; IV Intake: as6 250ml 08/26 23:50 Drug: Aspirin 162 mg Route: PO; mb9 08/27 00:03 Follow up: Response: No adverse reaction as6 Disposition Summary: 08/26/22 21:02 Hospitalization Ordered Hospitalization Status: Inpatient Admission sd2 Provider: Abran An sdBerny Condition: Stable sd2 Problem: new sd2 Symptoms: have improved sd2 Bed/Room Type: Standard sd2 Location: Telemetry/MedSurg (Inpatient)(08/29/22 02:04) cg Room Assignment: [facility](08/29/22 02:04) cg Diagnosis - Severe sepsis without septic shock sd2 - Community Acquired Pneumonia sd2 - ESRD needing dialysis sd2 - Hyperkalemia sd2 - Fluid overload sd2 Forms: - Medication Reconciliation Form sd2 - SBAR form sd2 Critical care time excluding procedures: 08/26 20:59 Critical care time: Bedside Care: 25 minutes, Consultation: 10 minutes, Family sd2 Intervention: 5 minutes. Total time: 40 minutes Signatures: Dispatcher [employer] EDSimon Reyna, NILE-C TRACER POWDER BLENDER-Cla1 Padmini Bansal, RN RN cg Deb Billy RN RN ll1 Kira Ashby MD MD sd2 Adrianne Her RN RN mb9 Humza Burciaga MD MD rt Josef De Leon RN as6 Lidia Ritchie tw5 Corrections: (The following items were deleted from the chart) 22:40 22:36 morphine 2 mg IVP once over 4 mins ordered. la1 la1 08/27 00:06 08/26 21:02 Telemetry/MedSurg (Inpatient) sd2 cg 08/27 00:06 08/26 21:02 sd2 cg 08/29 02:04 08/27 00:[address] [facility] ER HOLD cg cg 08/29 02:04 08/27 00:06 ERHOLD- cg cg
--- NOTE | 2022-08-26 21:02 | ER ---
Nurse's Notes [facility] Name: Meseret Gallego Age: 67 yrs Sex: Female : 1955 Arrival Date: 08/26/2022 Time: 18:43 Bed 8 Private MD: Diagnosis: Severe sepsis without septic shock;Community Acquired Pneumonia;ESRD needing dialysis;Hyperkalemia;Fluid overload Presentation: 08/26 18:44 Chief complaint: Patient states: Abd pain for 2 days. SOB for 1 day. R hand 3rd digit ll1 noted with pain, swelling, and drainage. Coronavirus screen: Vaccine status: Patient reports receiving the 2nd dose of the covid vaccine. Client denies travel out of the [place] in the last 14 days. difficulty breathing, fatigue, fever, shortness of breath, Client presents with at least one sign or symptom that may indicate coronavirus-19. Standard/surgical mask placed on the client. Ebola Screen: Patient denies travel to an Ebola-affected area in the 21 days before illness onset. Initial Sepsis Screen: Does the patient meet any 2 criteria? RR > 20 per min. Altered Mental Status. HR > 90 bpm. Yes Does the patient have a suspected source of infection? Yes: Skin breakdown/wound Acute abdominal pain. Risk Assessment: Do you want to hurt yourself or someone else? Patient reports no desire to harm self or others. Onset of symptoms was August 25, 2022. 18:44 Method Of Arrival: EMS ll1 18:44 Acuity: CHRISTOPHER 2 ll1 18:48 Chief complaint: EMS states: FS 203, 20 G L AC. Oxygen 2 L NC. BP WNL, HR 120's. Last ll1 dialysis was Sunday. Has had congestion for a few days. Home covid test was negative. Triage Assessment: 18:47 General: Appears uncomfortable, ill, Behavior is cooperative, appropriate for age, ll1 anxious, restless. Pain: Complains of pain in abdomen Pain Quality of pain is described as aching, crampy. Respiratory: Reports shortness of breath. GI: Reports lower abdominal pain, upper abdominal pain, cramping. Musculoskeletal: Reports pain in right hand. 18:55 Derm: Decubitus located on heel(s) approximately 7.6 cm to 20 cm is stage III bed has ll1 eschar present. Historical: - Allergies: 18:43 Codeine; ll1 18:43 Phenergan; ll1 18:43 Tape; ll1 - PMHx: 18:43 Dialysis; Hypothyroidism; Hypercholesterolemia; Hypertension; Diabetes - IDDM; ll1 Myocardial infarction; - PSHx: 18:43 section; knee; back; neck; 2 heart stents; ll1 - Immunization history:: Client reports receiving the 2nd dose of the Covid vaccine. - Social history:: Smoking status: Patient denies any tobacco usage or history of. Screenin:48 [facility] ED Fall Risk Assessment (Adult) Confusion or Disorientation Yes (5 pts) ll1 Impaired Gait Yes (1 pt) Score/Fall Risk Level 3 or more points = High Risk Oriented to surroundings, Maintained a safe environment, Educated pt \T\ family on fall prevention, incl call for assistance when getting out of bed, Assessed \T\ reinforced patient's understanding of fall precautions, Implemented a Fall Risk Plan of Care, Offered frequent toileting (1:1 observation), Utilized family, sitter, or virtual platform loader as indicated. Abuse screen: Denies threats or abuse. Nutritional screening: No deficits noted. Tuberculosis screening: No symptoms or risk factors identified. Assessment: 18:56 Reassessment: see triage assessment. mb9 19:07 Reassessment: first set of blood cultures sent. mb9 19:48 General: Appears ill, Behavior is cooperative. Pain: Complains of pain in right hand mb9 and abdomen Pain currently is 10 out of 10 on a pain scale. Quality of pain is described as throbbing, Pain began 1 day ago. Is continuous, Noted to be grimacing, moaning. Neuro: Varela Agitation-Sedation Scale (RASS): 0 - Alert and Calm Level of Consciousness is awake, alert, obeys commands, Oriented to person, place, time, situation, Appropriate for age. Cardiovascular: Heart tones S1 S2 present Patient's skin is warm and dry. Respiratory: Airway is patent Respiratory effort is even, labored, Respiratory pattern is tachypnea. GI: Abdomen is round non-distended, Bowel sounds present X 4 quads. Abd is soft Abdomen is tender to palpation in right lower quadrant and left lower quadrant. Derm: Skin is thin, with poor turgor Skin is dry, Skin is pale, Skin temperature is cool. 21:00 Reassessment: No changes from previously documented assessment. Patient and/or family mb9 updated on plan of care and expected duration. Pain level reassessed. Cardiovascular: Rhythm is regular. Respiratory: Airway is patent Respiratory effort is even, labored, Respiratory pattern is tachypnea. Derm: Skin is dry, Skin is pale, Skin temperature is cool. 21:28 Reassessment: pt taken to CT via stretcher. mb9 22:10 Reassessment: No changes from previously documented assessment. Patient and/or family mb9 updated on plan of care and expected duration. Pain level reassessed. Derm: Skin Skin is clammy, Skin temperature is warm. 22:40 Reassessment: Notified hospitalist about low BP 93/47, New orders at this time. mb9 23:30 General: Appears uncomfortable, ill, Behavior is cooperative. Neuro: Level of mb9 Consciousness is awake, alert, obeys commands, Oriented to person, place, time, situation, Appropriate for age. Cardiovascular: Rhythm is regular. Respiratory: Airway is patent Respiratory effort is even, labored, Respiratory pattern is tachypnea. Musculoskeletal: Range of motion: limited in bilateral lower extremities Swelling present in right hand. 08/27 00:01 Reassessment: Gave report to PERRI Bahena. mb9 Vital Signs: 08/26 18:44 BP 132 / 81; Pulse 126; Resp 33; Temp 100.4(TE); Pulse Ox 97% on 2 lpm NC; ll1 18:57 BP 158 / 116; Pulse 123; Resp 32; Pulse Ox 95% on 2 lpm NC; ll1 19:15 BP 132 / 69; Pulse 118; Resp 30; Pulse Ox 100% on 2 lpm NC; mb9 20:20 BP 129 / 82; Pulse 125; Resp 28; Pulse Ox 98% on 2 lpm NC; mb9 20:43 Weight 99.79 kg (M); mb9 21:28 BP 145 / 49; Pulse 116; Resp 32; Pulse Ox 100% on 2 lpm NC; mb9 22:30 BP 104 / 53; Pulse 99; Resp 28; Pulse Ox 95% on 3 lpm NC; mb9 22:40 BP 93 / 47; Pulse 95; Resp 32; Pulse Ox 95% on 3 lpm NC; mb9 23:19 BP 88 / 46; Pulse 92; Resp 22; Temp 99.9(O); Pulse Ox 100% on 2 lpm NC; mb9 23:35 BP 86 / 45; Pulse 90; Resp 21; Pulse Ox 100% on 2 lpm NC; mb9 23:54 BP 95 / 48; Pulse 88; Resp 19; Pulse Ox 100% on 2 lpm NC; mb9 ED Course: 18:43 Patient arrived in ED. ds4 18:43 Deb Billy, RN is Primary Nurse. ll1 18:43 Arm band placed on Patient placed in an exam room, on a stretcher. ll1 18:46 Triage completed. ll1 18:50 Patient has correct armband on for positive identification. Bed in low position. Call ll1 light in reach. Side rails up X2. Client placed on continuous cardiac and pulse oximetry monitoring. NIBP monitoring applied. apprentice cook on. 18:50 Maintain EMS IV. Dressing intact. Good blood return noted. Site clean \T\ dry. Gauge \T\ ll 1 site: 18 L AC. Oxygen administration via nasal cannula \T\ 2L/min. 18:55 EKG done, by ED staff. vg1 19:05 Inserted saline lock: 20 gauge in left forearm, using aseptic technique. mb9 19:10 Kira Ashby MD is Attending Physician. sd2 19:35 Notified ED physician of a critical lab result(s). 5.9 pot creat 6.05 trop 535.8. iw 19:41 Blood Culture Adult (2) Sent. as7 19:41 Lactate w/ 2H reflex if indic. Sent. as7 19:41 CMP Sent. as7 19:41 CBC with Diff Sent. as7 21:01 Abran An MD is Hospitalizing Provider. sd2 21:23 Urine Microscopic Only Sent. mb9 22:45 Lactate w/ 2H reflex if indic. Sent. mb9 23:30 Wound Culture Sent. mb9 23:30 Wound Culture Sent. mb9 08/27 00:16 No provider procedures requiring assistance completed. Patient admitted, IV remains in as6 place. 13:39 Denise Obando, RN is Primary Nurse. ll1 08/28 07:16 Primary Nurse role handed off by Denise Obando, RN bp 07:16 Demetrio Rubi, PERRI is Primary Nurse. bp Administered Medications: 08/26 21:00 Drug: Albuterol 5 mg Route: Inhalation; mb9 21:00 Drug: Kayexalate (polystyrene) 30 grams Route: PO; mb9 23:34 Follow up: Response: No adverse reaction mb9 21:02 Drug: Tylenol 1000 mg Route: PO; mb9 23:53 Follow up: Response: No adverse reaction mb9 21:03 Drug: NS 0.9% 250 ml Route: IV; Rate: bolus; Site: left antecubital; mb9 21:30 Follow up: Response: No adverse reaction; IV Status: Completed infusion mb9 21:05 Drug: D50W 50 ml Route: IVP; Site: left antecubital; mb9 23:34 Follow up: Response: No adverse reaction mb9 21:07 Drug: Insulin Regular Human 10 units {Co-Signature: tw5 (Lidia Ritchie).} Route: IVP; mb9 Site: left antecubital; 23:35 Follow up: Response: No adverse reaction mb9 21:15 Drug: Cefepime 2 grams Route: IVPB; Rate: 200 ml/hr; Infused Over: 30 mins; Site: left mb9 forearm; 21:40 Follow up: Response: No adverse reaction; IV Status: Completed infusion mb9 21:15 Drug: Lasix (furosemide) 100 mg Route: IVP; Site: left antecubital; mb9 23:34 Follow up: Response: No adverse reaction mb9 21:20 Drug: Sodium Bicarbonate 50 mEq Route: IVP; Site: left antecubital; mb9 23:52 Follow up: Response: No adverse reaction mb9 22:40 CANCELLED (Other Intervention Used): morphine 2 mg IVP once over 4 mins la1 22:41 Drug: vancoMYCIN 15 mg/kg Route: IVPB; Site: right forearm; mb9 22:45 Drug: NS 0.9% 250 ml Route: IV; Rate: bolus; Site: left antecubital; mb9 23:15 Follow up: Response: No adverse reaction; IV Status: Completed infusion mb9 23:15 Drug: NS 0.9% 250 ml Route: IV; Rate: bolus; Site: left antecubital; mb9 23:52 Follow up: Response: No adverse reaction; IV Status: Completed infusion mb9 23:38 Drug: NS 0.9% 250 ml Route: IV; Rate: bolus; Site: left antecubital; mb9 08/27 00:02 Follow up: Response: No adverse reaction; IV Status: Completed infusion; IV Intake: as6 250ml 08/26 23:50 Drug: Aspirin 162 mg Route: PO; mb9 08/27 00:03 Follow up: Response: No adverse reaction as6 Medication: 08/26 21:29 VIS not applicable for this client. mb9 Intake: 08/27 00:02 IV: 250ml; Total: 250ml. as6 Outcome: 08/26 21:02 Decision to Hospitalize by Provider. sd2 08/27 00:17 Admitted to ER Hold. Please see [facility] for further documentation. as6 Condition: stable Instructed on the need for admit. 08/29 03:27 Patient left the ED. as6 Signatures: Helga Schroeder, RN RN iw Wallace Sagastume ds4 Demetrio Rubi RN RN Josefina Dyer RN RN vg1 Deb Billy RN RN ll1 Josef De Leon RN RN as6 Kira Ashby MD MD sd2 Adrianne Her RN RN mb9 Monica Whitfield as7 Simon Bolaños DESK PENS ASSEMBLER-Cla1 Lidia Ritchie tw5 Corrections: (The following items were deleted from the chart) 08/26 18:55 18:47 Musculoskeletal: Reports pain in right hand ll1 ll1 19:00 18:57 BP 158 / 116; Pulse 234bpm; Resp 32bpm; Pulse Ox 95% 2 lpm Nasal Cannula; mb9 ll1 23:31 19:48 Musculoskeletal: Range of motion: intact in all extremities, mb9 mb9
[2022-08-26 21:14] LABS: Urine Bacteria None Seen /HPF (<20)
--- NOTE | 2022-08-26 21:52 | RAD REPORT ---
EXAM DESCRIPTION: CTChest Abdomen Pelvis W Cont - 08/26/2022 9:39 pm CLINICAL HISTORY: SOB COMPARISON: Chest Single View dated 08/26/2022 TECHNIQUE: CT of the chest, abdomen, and pelvis was performed. 85 mL of Isovue-[address] scans are performed using dose optimization technique as appropriate and may include automated exposure control or mA/KV adjustment according to patient size. FINDINGS: Thorax: Chest Wall: Left IJ approach dialysis catheter. Mild axillary lymphadenopathy which is favored reacti ve. Lungs: Mosaic lung attenuation noted. Pleura: No effusions or pneumothorax. Antoinette/Mediastinum: Mild mediastinal adenopathy. This is favored reactive. Aorta/Pulmonary Arteries: Unremarkable Heart: Normal size. Multi-vessel coronary artery disease. Abdomen/Pelvis: Liver: No acute abnormality or suspicious lesions. Biliary: Cholecystectomy. Stomach: No significant focal abnormality. Duodenum: No significant focal abnormality. Pancreas: No significant abnormality. Spleen: No significant abnormality. Adrenal: No suspicious lesions. Kidney/ureter: No hydronephrosis. Atrophic left kidney. Retroperitoneum: No retroperitoneal adenopathy. Vascular: Atherosclerosis. Bowel: No significant focal abnormality. Peritoneum: No ascites or free air. Small fat containing umbilical hernia. Bladder: Grossly unremarkable. Reproductive: No adnexal masses. Bones: No acute fracture. Bone graft harvest site in the left iliac bone. Fusion hardware in the lowe r spine. Other: n/a IMPRESSION: 1. Mosaic lung attenuation which could indicate small airways disease or hypoventilation . No evidence of pneumonia. 2. No acute intra-abdominal abnormality.
[2022-08-26] MEDS ORDERED: VANCOMYCIN 500 MG/VIAL ONE (22:35)
[2022-08-26] MEDS ORDERED: VANCOMYCIN 1 GM/VIAL ONE (22:35)
[2022-08-26 22:58] LABS: Arterial Blood Carboxyhemoglob 1.9 % (0-1.5); Blood Gas Oxyhemoglobin 94.9 % (94-97); Blood O2 Saturation 97.8 % (92-98.5)
[2022-08-26] MEDS ORDERED: NA CHLORIDE 0.9% 500 ML ONE (23:42)
[2022-08-26] MEDS ORDERED: ASPIRIN 81 MG CHEWABLE TABLET ONE (23:53)
--- NOTE | 2022-08-26 23:56 | P.HP ---
Certification for Inpatient Patient admitted to: Inpatient With expected LOS: >2 Midnights Patient will require the following post-hospital care: None Practitioner: I am a practitioner with admitting privileges, knowledge of patient current condition, hospital course, and medical plan of care. Services: Services provided to patient in accordance with Admission requirements found in Title 42 Section 412.3 of the Code of Federal Regulations Patient History Date of Service: 08/26/22 Reason for admission: Septic shock, hyperkalemia, ESRD History of Present Illness: 67-year-old female with history of ESRD on HD MWF, CAD with recent PCI, anemia chronic disease, insulin-dependent diabetes, hypertension, hypothyroidism presents to the emergency department for shortness of breath, fever. She reports she was last able to go to dialysis on Sunday missing Sunday and Sunday, started running fever yesterday patient reports Tmax 101. Patient was evaluated in the emergency department labs were significant for leukocytosis white blood cell count 19.5 hemoglobin 8.8 hematocrit 27.3 potassium 5.9 creatinine 6.05 BUN 79 lactic acid 3.6 troponin high-sensitivity 535.8 BNP 96,991 procalcitonin 8.72 urine negative for signs of infection chest x-ray initially showed questionable early right pneumonia but follow-up CT chest abdomen pelvis without contrast showed mosaic lung attenuation which could indicate small airway disease or hypoventilation no evidence of pneumonia. No acute intra-abdominal abnormality. Patient was noted to have wounds to jarrett ateral heels with surrounding cellulitis which I believe is the source of her current infection. She was treated for the hyperkalemia in the ED with 100 mg IV Lasix, insulin, dextrose, Kayexalate, albuterol. She is given antibiotics with vancomycin/cefepime. Her blood pressure did drop later during her ED stay unsure if this is related to septic shock or IV Lasix, she had 2 systolic blood pressures less than 90 meeting criteria for septic shock. Given her ESRD with multiple missed dialysis sessions and generalized edema 30 cc/kg IV fluid bolus was not given although we are giving small boluses of 250 cc repeated as necessary to ensure she does not become grossly overloaded. Clinic to admit to ICU for further management. Allergies codeine Allergy (Intermediate, Verified 08/04/22 13:31) Itching promethazine [From Phenergan] Allergy (Intermediate, Verified 08/04/22 13:31) Itching adhesive tape Adverse Reaction (Verified 08/04/22 13:31) Itching/Hives/Rash Home Medications: Atorvastatin Calcium [Lipitor] 20 mg PO BEDTIME 11/17/19 Docusate Sodium [Stool Softener] 50 mg PO BID 6AM 6PM 09/03/20 Furosemide 160 mg PO DAILY 09/03/20 Lisinopril [Zestril] 5 mg PO DAILY 09/03/20 Loratadine [Claritin*] 10 mg PO BID 09/03/20 Ondansetron [Zofran (Odt)*] 4 mg PO Q6H PRN #20 tab 10/20/21 Pantoprazole [Protonix Tab*] 40 mg PO BIDAC 30 Days #60 tab 10/20/21 Sucralfate [Carafate*] 1 gm PO ACHS 30 Days #120 tab 10/20/21 Buspirone HCl [Buspar*] 5 mg PO BID 06/11/22 Famotidine [Pepcid] 40 mg PO PRN 06/11/22 Levothyroxine Sodium 150 mcg PO DAILY 06/11/22 Bumetanide [Bumex*] 2 mg PO BID tab 06/21/22 Diphenhydramine [Benadryl*] 25 mg PO BEDTIME PRN tab 06/21/22 Metoprolol Succinate [Toprol Xl*] 12.5 mg PO BID 6AM 6PM tab 06/21/22 Aspirin [Aspirin EC 81 MG] 1 tab PO DAILY 08/12/22 Cholecalciferol (Vitamin D3) [Vitamin D 1000 Iu Tab*] 1 cap PO DAILY 08/12/22 Clopidogrel Bisulfate [Plavix*] 75 mg PO DAILY 30 Days #30 tab 08/12/22 Insulin Glargine,Hum.rec.anlog [Lantus] 50 units SQ BID 08/12/22 - Past Medical/Surgical History Diabetic: Yes -: IDDM -: Hypertension -: Hypothyroidism -: ESRD HD MWF -: hyperlipidemia -: depression -: Paralyzed Stomach -: Neuropathy -: CAD -: Back fusion -: bilateral total knee replacements -: bilateral carpal tunnel sx -: c section -: thyroidectomy -: neck fusion -: PD Cath then removed -: Cholecystectomy Psychosocial/ Personal History: Patient lives at home with her - Family History Mother -: Heart disease, Hypertension, Lung disease, Cancer Notes: breast ca Father -: Heart disease, Hypertension, Other (see notes) Notes: Alzheimer's - Social History Smoking Status: Never smoker Alcohol use: No CD- Drugs: No Caffeine use: Yes Place of Residence: Home Review of Systems 10-point ROS is otherwise unremarkable General: Fever, Chills, Weakness, Malaise Respiratory: Cough, Shortness of Breath Integumentary: Other (Wound to bilateral heels) Physical Examination - Physical Exam General: Alert, In no apparent distress, Oriented x3, Obese HEENT: Atraumatic, PERRLA, Mucous membr. moist/pink, EOMI, Sclerae nonicteric Neck: Supple, 2+ carotid pulse no bruit, No LAD, Without JVD or thyroid abnormality Respiratory: Clear to auscultation bilaterally, Normal air movement Cardiovascular: Regular rate/rhythm, Normal S1 S2, Edema Capillary refill: <2 Seconds Gastrointestinal: Normal bowel sounds, No tenderness Musculoskeletal: No tenderness Integumentary: Diabetic ulcer (Ulcerations to bilateral heels with skin breakdown, surrounding erythema/cellulitis.), Pressure ulcer Neurological: Normal speech, Normal strength at 5/5 x4 extr, Normal tone, Normal affect - Studies Laboratory Data (last 24 hrs) 08/26/22 18:53: PT 15.1 H, INR 1.37, APTT 29.9 08/26/22 18:53: Sodium 140, Potassium 5.9 H*, BUN 79 H, Creatinine 6.05 H*, Glucose 191 H, Magnesium 2.4, Total Bilirubin 0.7, AST 50 H, ALT 23, Alkaline Phosphatase 151 H, Lipase 78 08/26/22 18:53: WBC 19.50 H, Hgb 8.8 L, Hct 27.3 L, Plt Count 229 Assessment and Plan - Plan Assessment: Septic shock secondary to diabetic/pressure ulcerations bilateral heels NSTEMI with underlying CAD/recent heart cath with PCI ESRD on HD MWF with noncompliance/hyperkalemia Diabetes mellitus type 2insulin-dependent Chronic diastolic congestive heart failure Anemia of chronic disease Hypertension Hypothyroidism Plan: Septic shock secondary to diabetic/pressure ulcerations bilateral heels SIRS criteria present including leukocytosis, tachycardia, tachypnea. Source of infection noted with wounds to bilateral heels surrounding erythema/cellulitis. Initially met criteria for severe sepsis with lactate greater than 2 but has since had multiple blood pressures with systolic less than 90 not meeting criteria for septic shock. 30 cc/kg IV fluid bolus deferred as patient has underlying ESRD on HD/CHF and has missed multiple dialysis sessions. Currently giving small boluses of 250 cc NS and repeating as necessary in an attempt to avoid significant overload. If there is not significant improvement in BP may require vasopressor therapy. Continue ICU level of care. General surgery consulted for evaluation of wounds as well as infectious disease. X-rays ordere d to evaluate for possible osteomyelitis. Blood and wound cultures obtained. NSTEMI with underlying CAD/recent heart cath with PCI Patient had heart catheterization 08/11/2022 here with cardiology with PCI performed of the distal RCA, patient also noted to have severe LAD disease with plan for staged PCI. She is on aspirin, Plavix and high-dose statin at home which will be continued. Initial high-sensitivity troponin 535.8, this is possibly related to demand ischemia as patient is not currently having any chest pain or EKG changes suggesting STEMI although she does have known CAD. If there is marked elevation in the troponin levels we will initiate heparin drip. She was given aspirin in the emergency department. Cardiology to be consulted we will monitor on telemetry and trend troponins. ESRD on HD MWF with noncompliance/hyperkalemia Nephrology consulted, given medications for hyperkalemia in ED. Diabetes mellitus type 2insulin-dependent SSI, A1c. Chronic diastolic congestive heart failure Volume management with dialysis, cardiology consulted. Anemia of chronic disease Hypertension Hold antihypertensives in setting of septic shock, hypotension. Continue when appropriate. Hypothyroidism Continue home medication. DVT PPX: Heparin Code status: Full Discharge Plan: Home Plan to discharge in: Greater than 2 days - Advance Directives Does patient have a Living Will: No Does patient have a Durable POA for Healthcare: Yes - Code Status/Comfort Care Code Status Assessed: Yes (Full code) Critical Care: No Time Spent Managing Pts Care (In Minutes): 70
[2022-08-27] MEDS ORDERED: ALBUTEROL 2.5 MG/3 ML NEB SOL NEB PRN (00:07)
[2022-08-27] MEDS ORDERED: NA CHLORIDE 0.9% 250 ML ONE ×2 (01:51→02:38)
[2022-08-27] MEDS ORDERED: NA CHLORIDE 0.9% 250 ML IV ONE ×2 (01:52→02:36)
[2022-08-27 01:54] LABS: Potassium 4.3 mmol/L (3.5-5.1); Troponin High Sensitivity 519.5 pg/mL (<58.9)
[2022-08-27] MEDS ORDERED: ACETAMINOPHEN 500 MG TAB ONE ×2 (04:03→16:08)
[2022-08-27] MEDS: ACETAMINOPHEN 500 MG TAB PO PRN ×2 (04:05→16:11)
[2022-08-27 04:44] LABS: Absolute Lymphocytes (CBC) 0.3 K/uL (0.7-4.9); Hematocrit 23.7 % (36.0-45.0); MCV 90.9 fL (80-100); RBC Red Blood Cell Count 2.61 M/uL (3.86-4.86)
[2022-08-27 05:07] LABS: Albumin 2.3 g/dL (3.4-5.0); Bilirubin Total 0.7 mg/dL (0.2-1.0); Potassium 4.6 mmol/L (3.5-5.1); Protein, Total 6.8 g/dL (6.4-8.2); Thyroid Stimulating Hormone 2.34 uIU/mL (0.358-3.740)
[2022-08-27 05:08] LABS: Troponin High Sensitivity 543.3 pg/mL (<58.9)
--- NOTE | 2022-08-27 05:54 | P.CNS ---
Date of Consult: 08/27/22 Reason for Consult: ESRD Requesting Physician: Abran An Chief Complaint: Septic shock, hyperkalemia, ESRD History of Present Illness: 67F w/ PMHx of ESRD on HD MWF, CAD with recent PCI, anemia chronic disease, DM2, hypertension, & hypothyroidism who p/w SOB, & fever, has hypotension, hyperkalemia w/ serum potassium 5.9. She was noted to have wounds to bilateral heels with surrounding cellulitis. BP improved w/ IV fluids. She is started on abx. She received HD today. Allergies codeine Allergy (Intermediate, Verified 08/04/22 13:31) Itching promethazine [From Phenergan] Allergy (Intermediate, Verified 08/04/22 13:31) Itching adhesive tape Adverse Reaction (Verified 08/04/22 13:31) Itching/Hives/Rash Home Medications: Atorvastatin Calcium [Lipitor] 40 mg PO BEDTIME 11/17/19 Furosemide 80 mg PO DAILY 09/03/20 Lisinopril [Zestril] 5 mg PO DAILY 09/03/20 Loratadine [Claritin*] 10 mg PO DAILY 09/03/20 Pantoprazole [Protonix Tab*] 40 mg PO BIDAC 30 Days #60 tab 10/20/21 Buspirone HCl [Buspar*] 5 mg PO BID 06/11/22 Levothyroxine Sodium 150 mcg PO DAILY 06/11/22 Metoprolol Succinate [Toprol Xl*] 12.5 mg PO BID 6AM 6PM tab 06/21/22 Aspirin [Aspirin EC 81 MG] 1 tab PO DAILY 08/12/22 Cholecalciferol (Vitamin D3) [Vitamin D 1000 Iu Tab*] 1 cap PO DAILY 08/12/22 Clopidogrel Bisulfate [Plavix*] 75 mg PO DAILY 30 Days #30 tab 08/12/22 Insulin Glargine,Hum.rec.anlog [Lantus] 50 units SQ BID 08/12/22 Amlodipine Besylate 10 mg PO DAILY 08/27/22 Insulin Lispro [Humalog Tee Kwikpen] 100 units SQ DIRECTED 08/27/22 Midodrine HCl 5 mg PO PRN 08/27/22 Sevelamer Carbonate 800 mg PO TID 08/27/22 buPROPion HCL [Bupropion HCl Sr] 150 mg PO DAILY 08/27/22 calcitrioL [Rocaltrol] 0.25 mcg PO DAILY 08/27/22 - Past Medical/Surgical History Diabetic: Yes -: IDDM -: Hypertension -: Hypothyroidism -: ESRD HD MWF -: hyperlipidemia -: depression -: Paralyzed Stomach -: Neuropathy -: CAD -: Back fusion -: bilateral total knee replacements -: bilateral carpal tunnel sx -: c section -: thyroidectomy -: neck fusion -: PD Cath then removed -: Cholecystectomy Psychosocial/ Personal History: Patient lives at home with her - Family History Mother Medical History: Heart disease, Hypertension, Lung disease, Cancer Notes: breast ca Father Medical History: Heart disease, Hypertension, Other (see notes) Notes: Alzheimer's - Social History Smoking Status: Unknown if ever smoked Alcohol use: No CD- Drugs: No Caffeine use: Yes Place of Residence: Home Review of Systems is unable to be obtained (ams) Physical Examination Temp Pulse Resp BP Pulse Ox 97.8 F 94 H 21 H 103/60 100 08/27/22 04:00 08/27/22 04:00 08/27/22 04:00 08/27/22 04:00 08/27/22 04:00 General: Other (appears acutely ill) HEENT: Atraumatic, Normocephalic Neck: Supple Respiratory: Other (symmetric chest expansion) Cardiovascular: No rubs, No murmurs Gastrointestinal: Soft and benign, No guarding Musculoskeletal: No clubbing Integumentary: Warmth Neurological: Other (+AMS) Urinary: Other (no bladder distention) External genitalia: Deferred Rectal: Deferred Laboratory Data (last 24 hrs) 08/26/22 18:53: PT 15.1 H, INR 1.37, APTT 29.9 08/26/22 18:53: Sodium 140, Potassium 5.9 H*, BUN 79 H, Creatinine 6.05 H*, Glucose 191 H, Magnesium 2.4, Total Bilirubin 0.7, AST 50 H, ALT 23, Alkaline Phosphatase 151 H, Lipase 78 08/26/22 18:53: WBC 19.50 H, Hgb 8.8 L, Hct 27.3 L, Plt Count 229 Conclusions/Impression: # ESRD on outpt HD MWF at [facility] HD received today for hyperK & volume overload HD access: L TDC EDW: 101 kg # Hyperkalemia HD as above # Severe sepsis likely secondary to infected bilateral diabetic heel pressure ulcers with gram-positive bacteremia On empiric antibiotics Per other services # Acute on chronic diastolic heart failure HD as above # Anemia Monitor H/H # Renal osteodystrophy Monitor Ca & phos # DM2 Mngt per primary team # Hypothyroidism Levothyroxine
[2022-08-27] MEDS: INSULIN -REGULAR HUMAN 50 UNIT/0.5 ML ML SQ SCH ×4 (07:30→20:42)
[2022-08-27] MEDS ORDERED: INSULIN -REGULAR HUMAN 50 UNIT/0.5 ML ML ONE (08:20)
[2022-08-27] MEDS ORDERED: NA CHLORIDE 0.9% 100 ML ONE (08:21)
[2022-08-27] MEDS ORDERED: ASPIRIN EC 81 MG TAB PO ONE (08:21)
[2022-08-27] MEDS ORDERED: HEPARIN 5000 UNIT/ML 1 ML VIAL ONE ×2 (08:21→23:15)
[2022-08-27] MEDS ORDERED: CLOPIDOGREL 75 MG TABLET ONE (08:21)
[2022-08-27] MEDS ORDERED: CEFEPIME 1 GM/VIAL ONE (08:22)
[2022-08-27] MEDS: HEPARIN 5000 UNIT/ML 1 ML VIAL SQ SCH ×2 (08:27→21:00)
[2022-08-27] MEDS: CLOPIDOGREL 75 MG TABLET PO SCH (08:27)
[2022-08-27] MEDS: ASPIRIN EC 81 MG TAB PO SCH (08:27)
[2022-08-27] MEDS: CEFEPIME 1 GM in NA CHLORIDE 0.9% 100 ML IV SCH (08:27)
[2022-08-27] MEDS ORDERED: CEFEPIME 1 GM in NA CHLORIDE 0.9% 100 ML IV SCH (09:00)
--- NOTE | 2022-08-27 10:07 | P.PN ---
Subjective Date of Service: 08/27/22 Chief Complaint: Septic shock, hyperkalemia, ESRD No acute events overnight. She reports continued shortness of breath. No fever documented here thus far. She is tremulous, concerning for uremia due to missed dialysis sessions. She states that her last dialysis was on 08/23/2022. Review of Systems 10-point ROS is otherwise unremarkable General: Fever Respiratory: Shortness of Breath Physical Examination - Vital Signs Temperature: 97.8 F Blood Pressure: 124/59 Pulse: 95 Respirations: 18 Pulse Ox (%): 99 - Physical Exam General: Alert, Oriented x3, Mild distress HEENT: Atraumatic, EOMI, Sclerae nonicteric Neck: JVD distended Respiratory: Crackles/rales (bibasilar) Cardiovascular: Regular rate/rhythm, Normal S1 S2, No gallops, No rubs, No murmurs, Edema (2+ BLE) Gastrointestinal: Normal bowel sounds, Soft and benign, Non-distended, No tenderness, No rebound, No guarding Musculoskeletal: No clubbing Integumentary: No rashes, Pressure ulcer (bilateral heels) Neurological: Normal speech, Normal affect, Other (mild hand tremors noted) - Studies Laboratory Data (last 24 hrs) 08/26/22 18:53: PT 15.1 H, INR 1.37, APTT 29.9 08/26/22 18:53: Sodium 140, Potassium 5.9 H*, BUN 79 H, Creatinine 6.05 H*, Glucose 191 H, Magnesium 2.4, Total Bilirubin 0.7, AST 50 H, ALT 23, Alkaline Phosphatase 151 H, Lipase 78 08/26/22 18:53: WBC 19.50 H, Hgb 8.8 L, Hct 27.3 L, Plt Count 229 Microbiology Data (last 24 hrs): 08/26/22 19:36 Blood - Blood Blood Culture Gram Stain - Final 08/26/22 19:36 Blood - Blood Gram Stain - Final 08/26/22 19:07 Blood - Blood Blood Culture Gram Stain - Final 08/26/22 19:07 Blood - Blood Gram Stain - Final 08/26/22 23:27 Wound - Left Heel Gram Stain - Final 08/26/22 23:26 Wound - Right Heel Gram Stain - Final Assessment And Plan - Plan # Septic Shock likely secondary to Infected Bilateral Diabetic/Pressure Heel Ulcers with Gram-Positive Bacteremia She met sepsis criteria based on HR > 90 bpm, RR > 20 breaths/min, and WBC > 12,000 and the suspected source is soft tissue/skin infection with bacteremia. Severe sepsis is suspected due to concern for tissue hypoperfusion/organ dysfunction based on hypotension (SBP < 90), and lactic acid > 2 mmol/L. Septic shock is suspected due to 2 or more readings of SBP < 90 mmHg. - Infectious Diseases consulted - recommendations appreciated - General Surgery consulted - recommendations appreciated - Ordered transthoracic echocardiogram to evaluate for cardiac vegetations - may require transesophageal echocardiogram - Sepsis order set was initiated - Lactate trend: 3.6 -> 3.2 - Procalcitonin: 8.72 - Blood cultures drawn before antibiotics were given - 4/4 positive for gram- positive cocci in clusters - Repeat blood cultures requested - Broad spectrum antibiotics started: Vancomycin + Cefepime - In regards to fluids: - 30 mL/kg of IV fluids was not administered due to response to lesser volume and concern for volume overload in ESRD - Chest x-ray = "mild right basilar opacities could reflect a mild developing pneumonia." - CT chest/abdomen/pelvis = "1. Mosaic lung attenuation which could indicate small airways disease or hypoventilation. No evidence of pneumonia. 2. No acute intra-abdominal abnormality." - Bilateral feet x-rays = "1. Suspected soft tissue defects overlying the plantar aspects of the bilateral calcanel with no acute osseous findings in the bilateral feet. 2. relative osteopenic appearance of the bones. Consider DEXA scan if not recently performed to evaluate and potentially treat osteoporosis/osteopenia." # Non-ST Segment Elevation Myocardial Infarction # Coronary Artery Disease s/p PCI (08/11/2022) # Hypertension # Hyperlipidemia Recently underwent PCI to RCA on 08/11/2022. Plan was for staged PCI given advanced LAD disease. - Evaluation thus far: - EKG: without STEMI, trend - Serial troponin: 535.8 -> 519.5 -> 543.3 - Ordered transthoracic echocardiogram - Management plan: - Consult Cardiology - recommendations appreciated - Continue home aspirin, clopidogrel, atorvastatin - Hold any beta-susan, SUJIT-inhibitor/ARB given concern for septic shock # Suspect Acute on Chronic Decompensated Congestive Heart Failure with Preserved Ejection Fraction due to Missed Dialysis sessions # Hypervolemia in End-Stage Renal Disease on intermittent Hemodialysis # Anemia of Chronic Kidney Disease Chest x-ray initially suggestive of pneumonia; however, CT chest argues against pneumonia. Suspect chest x-ray findings represent pulmonary edema. - Nephrology and Cardiology consulted - recommendations appreciated - Volume removal via hemodialysis - Daily weights - Strict I/O - 1.5 L fluid restriction, 2 g Na restriction # Type II Diabetes Mellitus - Hgb A1c pending - Correction scale insulin # Hypothyroidism - Continue home levothyroxine # Microscopic Hematuria - Noted on UA - Follow-up with PCP Abran An M.D.
[2022-08-27] MEDS: ALBUMIN HUMAN 25% 100 ML IV ONE ×2 (13:00→13:37)
[2022-08-27] MEDS ORDERED: ONDANSETRON 4 MG/2 ML VIAL ONE (16:08)
[2022-08-27] MEDS: ONDANSETRON 4 MG/2 ML VIAL IV PRN (16:11)
[2022-08-27] MEDS ORDERED: KETOROLAC 30 MG/ML INJ ONE (18:27)
[2022-08-27] MEDS ORDERED: KETOROLAC 30 MG/ML INJ IV ONE (18:27)
--- NOTE | 2022-08-27 19:41 | P.PN ---
Date of Service: 08/27/22 Sepsis reassessment complete, septic shock present, BP responding to small ivf bolus repeated PRN given hx of esrd with multiple missed dialysis sessions.
[2022-08-27] MEDS: ATORVASTATIN 40 MG TAB PO SCH (21:00)
[2022-08-27] MEDS ORDERED: lisinopriL 20 MG TAB ONE (23:15)
[2022-08-28] MEDS: ACETAMINOPHEN 500 MG TAB PO PRN ×2 (02:02→06:08)
[2022-08-28] MEDS ORDERED: ACETAMINOPHEN 500 MG TAB ONE ×2 (02:03→06:05)
[2022-08-28 02:11] VITALS: BMI 37.5
[2022-08-28] MEDS: ONDANSETRON 4 MG/2 ML VIAL IV PRN (04:35)
[2022-08-28 04:36] LABS: Absolute Lymphocytes (CBC) 0.6 K/uL (0.7-4.9); MCV 90.3 fL (80-100); MPV 7.3 fL (7.6-11.3); RBC Red Blood Cell Count 2.44 M/uL (3.86-4.86)
[2022-08-28] MEDS ORDERED: ONDANSETRON 4 MG/2 ML VIAL ONE (04:38)
[2022-08-28 04:55] LABS: Albumin 2.2 g/dL (3.4-5.0); Bilirubin Total 0.7 mg/dL (0.2-1.0); Potassium 3.4 mmol/L (3.5-5.1); Protein, Total 6.3 g/dL (6.4-8.2)
[2022-08-28] MEDS: LEVOTHYROXINE SOD 0.075 MG TAB PO SCH (06:07)
[2022-08-28] MEDS: INSULIN -REGULAR HUMAN 50 UNIT/0.5 ML ML SQ SCH ×4 (07:30→23:49)
[2022-08-28] MEDS ORDERED: LORazepam 2 MG/ML VIAL ONE (07:59)
[2022-08-28] MEDS: HEPARIN 5000 UNIT/ML 1 ML VIAL SQ SCH ×2 (09:00→23:13)
[2022-08-28] MEDS: CLOPIDOGREL 75 MG TABLET PO SCH (09:00)
[2022-08-28] MEDS: ASPIRIN EC 81 MG TAB PO SCH (09:00)
[2022-08-28] MEDS: CEFEPIME 1 GM in NA CHLORIDE 0.9% 100 ML IV SCH (09:00)
[2022-08-28] MEDS ORDERED: ASPIRIN EC 81 MG TAB PO ONE (10:10)
[2022-08-28] MEDS ORDERED: CLOPIDOGREL 75 MG TABLET ONE (10:11)
[2022-08-28] MEDS ORDERED: NA CHLORIDE 0.9% 100 ML ONE (10:11)
[2022-08-28] MEDS ORDERED: CEFEPIME 1 GM/VIAL ONE (10:11)
[2022-08-28] MEDS: LORazepam 2 MG/ML VIAL IV PRN ×2 (10:45→11:00)
[2022-08-28] MEDS ORDERED: FENTANYL CITR 100 MCG/2 ML ONE (11:08)
[2022-08-28] MEDS ORDERED: FENTANYL CITR 100 MCG/2 ML IV ONE (11:29)
[2022-08-28] MEDS ORDERED: ALBUTEROL 2.5 MG/3 ML NEB SOL NEB PRN (12:00)
--- NOTE | 2022-08-28 12:33 | RAD REPORT ---
EXAM DESCRIPTION: MRI - Foot Left Wo Cont - 08/28/2022 12:20 pm CLINICAL HISTORY: Left foot pain and swelling COMPARISON: August 26, 2022 x-ray TECHNIQUE: Axial, sagittal and coronal magnetic resonance imaging left foot FINDINGS: Images are somewhat degraded by patient motion artifact. Calcaneus demonstrates normal signal. Remainder of the hindfoot, midfoot and proximal forefoot demonstrate normal signal. No fracture or dislocation seen. IMPRESSION: No evidence of osteomyelitis
--- NOTE | 2022-08-28 12:33 | RAD REPORT ---
EXAM DESCRIPTION: MRIFoot Right Wo Cont08/28/2022 11:54 am CLINICAL HISTORY: Right foot pain and swelling COMPARISON: August 26 2022 x-ray TECHNIQUE: Axial, sagittal and coronal magnetic resonance imaging of the right foot was obtained. FINDINGS: The calcaneus demonstrates normal signal. Remainder of the hindfoot, midfoot and proximal forefoot demonstrate normal signal. No fracture or dislocation. No large joint effusion. IMPRESSION: No evidence of osteomyelitis
--- NOTE | 2022-08-28 12:40 | EKG ---
Test Date: 2022-08-26 Test Time: 18:51:44 Irrigation Foreman: MB MEASUREMENT RESULTS: Intervals: Rate: 125 ME: 146 QRSD: 106 QT: 314 QTc: 453 [place]: P: 75 ME: 146 QRS: -24 T: 123 INTERPRETIVE STATEMENTS: Sinus tachycardia with fusion complexes ST & T wave abnormality, consider lateral ischemia Abnormal ECG Compared to ECG 08/26/2022 18:51:16 Fusion complex(es) now present Left-axis deviation no longer present ST (T wave) deviation still present Possible ischemia still present Electronically Signed On 08-28-22 12:36:27 EMBOSSING PRESS OPERATOR MOLDED GOODS by Imer Lantigua
--- NOTE | 2022-08-28 12:40 | EKG ---
Test Date: 2022-08-26 Test Time: 18:51:16 Emergency Registrar: MB MEASUREMENT RESULTS: Intervals: Rate: 125 DE: 148 QRSD: 108 QT: 320 QTc: 461 [place]: P: 78 DE: 148 QRS: -32 T: 116 INTERPRETIVE STATEMENTS: Sinus tachycardia Left axis deviation ST & T wave abnormality, consider lateral ischemia Abnormal ECG Compared to ECG 08/08/2022 11:52:57 Left-axis deviation now present ST (T wave) deviation now present Possible ischemia now present Sinus rhythm no longer present T-wave abnormality no longer present Electronically Signed On 08-28-22 12:36:33 SIDE BOSS by Imer Lantigua
--- NOTE | 2022-08-28 13:47 | RAD REPORT ---
EXAM DESCRIPTION: RAD - Foot Left 3 View - 08/26/2022 10:59 pm CLINICAL HISTORY: The patient is 67 years old and is Female; wound eval for osteo [facility] MAIN TECHNIQUE: Frontal, lateral and oblique views of the bilateral feet. COMPARISON: No relevant prior studies available. FINDINGS: BONES/JOINTS: Relative osteopenic appearance of the bones. Small left and right dorsal and plantar calcaneal spurs. No acute fracture. No suspicious cortical erosion. No dislocation. SOFT TISSUES: Suspected soft tissue defect overlying the plantar aspects of the left and right jose caneus with no obvious subcutaneous tract, some disease emphysema, collection, or underlying acute os seous abnormality. No radiopaque foreign body. No other areas of obvious soft tissue or injury are appreciated. VASCULATURE: Vascular calcifications. IMPRESSION: 1. Suspected soft tissue defects overlying the plantar aspects of the bilateral calcan ei with no acute osseous findings in the bilateral feet. 2. Relative osteopenic appearance of the bones. Consider DEXA scan if not recently performed to nataly luate and potentially treat osteoporosis/osteopenia. Of note, MRI is the most sensitive imaging evaluation for osteomyelitis and for evaluation of fractur es in osteopenic patients. Consider further evaluation by MRI if there is clinical suspicion for oste omyelitis or acute osseous injury of the left foot. Electronically signed by: Ramon An MD 08/26/2022 11:56 PM ADDING MACHINE OPERATOR Due to temporary technical issues with the PACS/Fluency reporting system, reports are being signed by the in house radiologists without review as a courtesy to insure prompt reporting. The interpreting radiologist is fully responsible for the content of the report.
--- NOTE | 2022-08-28 13:52 | RAD REPORT ---
EXAM DESCRIPTION: RAD - Foot Right 3 View CLINICAL HISTORY: The patient is 67 years old and is Female; wound eval for osteo [facility] MAIN TECHNIQUE: Frontal, lateral and oblique views of the bilateral feet. COMPARISON: No relevant prior studies available. FINDINGS: BONES/JOINTS: Relative osteopenic appearance of the bones. Small left and right dorsal and plantar calcaneal spurs. No acute fracture. No suspicious cortical erosion. No dislocation. SOFT TISSUES: Suspected soft tissue defect overlying the plantar aspects of the left and right jose caneus with no obvious subcutaneous tract, some disease emphysema, collection, or underlying acute os seous abnormality. No radiopaque foreign body. No other areas of obvious soft tissue or injury are appreciated. VASCULATURE: Vascular calcifications. IMPRESSION: 1. Suspected soft tissue defects overlying the plantar aspects of the bilateral calcan ei with no acute osseous findings in the bilateral feet. 2. Relative osteopenic appearance of the bones. Consider DEXA scan if not recently performed to nataly luate and potentially treat osteoporosis/osteopenia. Of note, MRI is the most sensitive imaging evaluation for osteomyelitis and for evaluation of fractur es in osteopenic patients. Consider further evaluation by MRI if there is clinical suspicion for oste omyelitis or acute osseous injury of the left foot. Electronically signed by: Ramon An MD 08/26/2022 11:56 PM TECHNICAL PROPOSAL WRITER Due to temporary technical issues with the PACS/Fluency reporting system, reports are being signed by the in house radiologists without review as a courtesy to insure prompt reporting. The interpreting radiologist is fully responsible for the content of the report.
--- NOTE | 2022-08-28 14:23 | ECHO ---
HEIGHT: 5 ft 6 in WEIGHT: 233 lb 0 oz DATE OF STUDY: 08/28/[address]: Abran An MD 2-DIMENSIONAL: YES M.MODE: YES DOPPLER: YES COLOR FLOW: YES TDS: PORTABLE: YES DEFINITY: BUBBLE STUDY: DIAGNOSIS: GRAM-POSITIVE BACTEREMIA, EVALUATE FOR VEGETATIONS CARDIAC HISTORY: CATHERIZATION: YES SURGERY: NO PROSTHETIC VALVE: NO PACEMAKER: NO MEASUREMENTS (cm) DIASTOLIC (NORMALS) SYSTOLIC (NORMALS) IVSd 1.0 (0.6-1.2) LA Diam 3.0 (1.9-4.0) LVEF 51% LVIDd 5.5 (3.5-5.7) LVIDs 4.1 (2.0-3.5) %FS 26% LVPWd 1.1 (0.6-1.2) Ao Diam 3.0 (2.0-3.7) 2 DIMENSIONAL ASSESSMENT: RIGHT ATRIUM: NORMAL LEFT ATRIUM: NORMAL RIGHT VENTRICLE: NORMAL LEFT VENTRICLE: NORMAL TRICUSPID VALVE: MILD TRICUSPID REGURGITATION MITRAL VALVE: CALCIFIED MITRAL VALVE WITH MILD MITRAL REGURGITATION PULMONIC VALVE: NORMAL AORTIC VALVE: CALCIFIED AORTIC VALVE, NO AORTIC STENOSIS PERICARDIAL EFFUSION: NONE AORTIC ROOT: NORMAL LEFT VENTRICULAR WALL MOTION: NORMAL DOPPLER/COLOR FLOW: SEE BELOW COMMENTS: 1. NORMAL LEFT VENTRICULAR EJECTION FRACTION 50-55% 2. MILD MITRAL REGURGITATION 3. MILD TRICUSPID REGURGITATION 4. MODERATE DIASTOLIC DYSFUNCTION 5. RIGHT VENTRICULAR SYSTOLIC PRESSURE IS ELEVATED 60-65 mmHg TECHNOLOGIST: JORDAN GONZALEZ
--- NOTE | 2022-08-28 20:41 | CON ---
Date of Consultation: 08/28/2022 Reason For Consultation: Shortness of breath and lower extremity edema. History Of Present Illness: This is a 67-year-old female, past medical history of coronary artery di sease; end-stage renal disease, on hemodialysis; diabetes; hypertension; hyperlipidemia, presented wi th shortness of breath, fever, lower extremity edema. She had the cellulitis of both lower extremity and which was felt to be a source of infection, but the patient missed two dialysis sessions and not being feeling well. She denies having any chest pain. Her troponins were slightly elevated on arri nahum, but there is no active chest pain. Assessment And Recommendation: 1.Elevated troponin. No chest pain. We know this patient has significant coronary artery disease, status post successful intervention on the left circumflex and right coronary artery. She needs the left anterior descending to be worked on, which is scheduled to be done in [place], as it is a comple x percutaneous coronary intervention. Patient has no chest pain. Continue to monitor. Ejection fra ction on an echo was normal. 2.End-stage renal disease with significant fluid overload. Recommend daily dialysis until this impr oves. 3.Lower extremity edema with the fluid overload. Retention should improve with dialysis. Strict lo w-salt diet is encouraged. 4.Ulcerations bilaterally of lower extremities. Patient will require an angiogram to be done, which we will plan for it as an outpatient and she is currently on antibiotics. Cardiology will sign off on the case. I will follow her up on an outpatient basis in the office. /RENÉ Voice ID: [id number] Report ID: [id number]
--- NOTE | 2022-08-28 22:31 | P.PN ---
Subjective Date of Service: 08/28/22 Pt c/o of pain. Patient's clinical symptoms are improving. Review of Systems 10-point ROS is otherwise unremarkable Physical Examination - Vital Signs Temperature: 97.6 F Blood Pressure: 113/61 Pulse: 80 Respirations: 15 Pulse Ox (%): 95 - Physical Exam General: Alert, In no apparent distress, Oriented x3 Respiratory: Clear to auscultation bilaterally, Normal air movement Cardiovascular: Regular rate/rhythm, Normal S1 S2, Systolic murmur Gastrointestinal: Normal bowel sounds, Hypoactive, Soft and benign, Non- distended Musculoskeletal: No clubbing, No swelling Neurological: Sensation intact, Cranial nerves 3-12 intact, Abnormal strength - Studies Microbiology Data (last 24 hrs): 08/26/22 23:27 Wound - Left Heel Gram Stain - Final 08/26/22 23:26 Wound - Right Heel Gram Stain - Final 08/26/22 19:36 Blood - Blood Blood Culture Gram Stain - Final 08/26/22 19:36 Blood - Blood Gram Stain - Final 08/26/22 19:07 Blood - Blood Blood Culture Gram Stain - Final 08/26/22 19:07 Blood - Blood Gram Stain - Final Assessment & Plan - Problems (Diagnosis) (1) ESRD (end stage renal disease) Current Visit: Yes Status: Acute (2) Diabetes mellitus Current Visit: No Status: Acute (3) Hyperkalemia Current Visit: No Status: Acute (4) NSTEMI (non-ST elevated myocardial infarction) Current Visit: No Status: Acute (5) Hypothyroidism Current Visit: No Status: Chronic Qualifiers: Hypothyroidism type: acquired Qualified Code(s): E03.9 - Hypothyroidism, unspecified (6) Type 2 diabetes mellitus Current Visit: No Status: Chronic Qualifiers: Diabetes mellitus [facility] insulin use: with long distance operator use Diabetes mellitus complication status: with hyperglycemia Qualified Code(s): E11.65 - Type 2 diabetes mellitus with hyperglycemia; Z79.4 - custodial (current) use of insulin (7) Anemia Current Visit: No Status: Acute Qualifiers: Anemia type: due to chronic kidney disease Chronic kidney disease stage: on chronic dialysis Qualified Code(s): N18.6 - End stage renal disease; D63.1 - Anemia in chronic kidney disease; Z99.2 - Dependence on renal dialysis (8) Congestive heart failure (CHF) Current Visit: No Status: Acute (9) Obesity Current Visit: No Status: Acute - Plan PLAN: 1. Continue with antibiotics 2. ESRD; Nephrology for HD 3. Continue with debridement per surgery 4. Aspirin/lipitor 5. BP and BS are stable 6. Cardiology consults-angiogram as an outpt 7. Monitor H&H 8. GI/DVT prophylaxis Discharge Plan: Home Plan to discharge in: Greater than 2 days - Advance Directives Does patient have a Living Will: No Does patient have a Durable POA for Healthcare: No - Code Status/Comfort Care Code Status Assessed: Yes Code Status: Full Code Critical Care: No Time Spent Managing PTS Care (In Minutes): 35
[2022-08-28] MEDS ORDERED: HEPARIN 5000 UNIT/ML 1 ML VIAL ONE (23:09)
[2022-08-28] MEDS ORDERED: ATORVASTATIN 20 MG TAB ONE (23:10)
[2022-08-28] MEDS: ATORVASTATIN 40 MG TAB PO SCH (23:13)
[2022-08-28] MEDS: HYDROCODONE/APAP 7.5/325 MG TAB PO PRN (23:13)
[2022-08-29] MEDS ORDERED: ALBUMIN HUMAN 25% 100 ML IV ONE ×2 (02:24→02:37)
[2022-08-29 02:27] LABS: Absolute Lymphocytes (CBC) 0.7 K/uL (0.7-4.9); Hematocrit 21.5 % (36.0-45.0); Lymphocytes % 5.8 % (15.3-44.8); MCV 89.4 fL (80-100); MPV 7.4 fL (7.6-11.3)
[2022-08-29 02:55] LABS: Albumin 2.1 g/dL (3.4-5.0); Bilirubin Total 0.6 mg/dL (0.2-1.0); Potassium 3.5 mmol/L (3.5-5.1); Protein, Total 6.1 g/dL (6.4-8.2)
[2022-08-29] MEDS ORDERED: NA CHLORIDE 0.9% 250 ML IV SCH (03:00)
--- NOTE | 2022-08-29 04:01 | PN ---
Date of Progress Note: 08/28/2022 Chief Complaint: End-stage renal disease, on hemodialysis 3 times per week, coronary artery disease, recent PCI, anemia of chronic kidney disease, diabetes mellitus with renal manifestation, hypertensi on, hypothyroidism. Subjective: The patient presented with fever, hypotension, complaint of shortness of breath, was fou nd to have hyperkalemia and fluid overload. The patient developed hypotension, which was treated wit h IV fluid. Blood pressure improved after antibiotic was started and IV fluids were completed. The patient received dialysis yesterday to control severe fluid overload and provide metabolic clearance to control hyperkalemia. Review of Systems: The patient denies fever, chills. Physical Examination: Lungs: Clear to auscultation bilaterally. Heart: S1, S2. Abdomen: Soft. Extremity: Edema has improved. Impression And Plan: 1.End-stage renal disease. Dialysis will be done tomorrow. 2.Hyperkalemia. Monitor potassium level. The patient received dialysis and today potassium is with in normal limits. 3.Severe sepsis likely secondary to infected bilateral diabetic heel pressure ulcers with gram-posit hermes bacteremia. Continue empiric antibiotics. 4.Acute on chronic diastolic congestive heart failure. Dialysis was done to control volemia. 5.Hyperkalemia. Potassium level after dialysis is within normal limits. Monitor potassium level. 6.End-stage renal disease. Continue dialysis 3 times per week. 7.Hypothyroidism. Check TSH. Continue levothyroxine. 8.Renal osteodystrophy. Monitor calcium and phosphorus. EB/MODL Voice ID: [id number] Report ID: [id number]
[2022-08-29] MEDS: LEVOTHYROXINE SOD 0.075 MG TAB PO SCH (06:30)
[2022-08-29] MEDS: INSULIN -REGULAR HUMAN 50 UNIT/0.5 ML ML SQ SCH ×4 (07:30→21:00)
[2022-08-29] MEDS: CLOPIDOGREL 75 MG TABLET PO SCH (09:00)
[2022-08-29] MEDS: HEPARIN 5000 UNIT/ML 1 ML VIAL SQ SCH (09:00)
[2022-08-29] MEDS: HYDROCODONE/APAP 7.5/325 MG TAB PO PRN ×3 (10:10→19:01)
[2022-08-29] MEDS: ASPIRIN EC 81 MG TAB PO SCH (10:11)
[2022-08-29] MEDS: CEFEPIME 1 GM in NA CHLORIDE 0.9% 100 ML IV SCH (10:15)
[2022-08-29] MEDS ORDERED: MORPHINE 2 MG/ML SYR IV ONE ×2 (15:06→20:42)
--- NOTE | 2022-08-29 15:10 | P.PN ---
Date of Service: 08/29/22 Subjective Pt doing ok with no new complaints; patient will need outpt arteriogram. Patient's blood cultures have been positive. Repeat blood cultures pending. Discussed with cardiology. Transfuse 2u PRBC Physical Examination - Vital Signs reviewed - Physical Exam General: Alert, In no apparent distress, Oriented x3 Respiratory: Clear to auscultation bilaterally, Normal air movement Cardiovascular: Regular rate/rhythm, Normal S1 S2, Systolic murmur Gastrointestinal: Normal bowel sounds, Hypoactive, Soft and benign, Non- distended Musculoskeletal: No clubbing, No swelling Neurological: No focal deficits Skin: Bilateral heel wound and right hand/finger wound Assessment & Plan - Problems (Diagnosis) (1) ESRD (end stage renal disease) Current Visit: Yes Status: Acute (2) Diabetes mellitus Current Visit: No Status: Acute (3) Hyperkalemia Current Visit: No Status: Acute (4) NSTEMI (non-ST elevated myocardial infarction) Current Visit: No Status: Acute (5) Hypothyroidism Current Visit: No Status: Chronic Qualifiers: Hypothyroidism type: acquired Qualified Code(s): E03.9 - Hypothyroidism, unspecified (6) Type 2 diabetes mellitus Current Visit: No Status: Chronic Qualifiers: Diabetes mellitus [facility] insulin use: with long distance billing operator use Diabetes mellitus complication status: with hyperglycemia Qualified Code(s): E11.65 - Type 2 diabetes mellitus with hyperglycemia; Z79.4 - shelter (current) use of insulin (7) Anemia Current Visit: No Status: Acute Qualifiers: Anemia type: due to chronic kidney disease Chronic kidney disease stage: on chronic dialysis Qualified Code(s): N18.6 - End stage renal disease; D63.1 - Anemia in chronic kidney disease; Z99.2 - Dependence on renal dialysis (8) Congestive heart failure (CHF) Current Visit: No Status: Acute (9) Obesity Current Visit: No Status: Acute - Plan Continue with POC as mentioned below: 1. Continue with antibiotics; arrange for outpt antibiotics 2. ESRD; Nephrology for HD 3. Continue with debridement per surgery 4. Aspirin/lipitor; statin therapy and antiplatelet therapy fort PAD/CAD 5. BP and BS are stable 6. Cardiology consults-angiogram as an outpt; repeat blood cultures; Echo pending 7. Transfused 2u PRBC; monitor H&H 8. GI/DVT prophylaxis
--- NOTE | 2022-08-29 15:28 | P.PN ---
Subjective Date of Service: 08/29/22 Chief Complaint: Septic shock, hyperkalemia, ESRD Subjective Pt with ESRD , DM , admitted with fluid overload and non healing heel ulcer Today seen and examined during HD plan for 2 PRBC plan for Angiogram as an OP Physical exam General: drwosy, obese HEENT: Atraumatic, Normocephalic Neck: Supple, no elevated JVD Respiratory: rt basal rales Cardiovascular: No rubs, No murmurs Gastrointestinal: Soft and benign, Non-distended leg; trace edmea, heel ulcer # ESRD on outpt HD MWF at [facility] HD today # Heel ulcer cont ABx and wound care plan for angiogrm as an OP # Acute on chronic diastolic heart failure HD as above # Anemia Monitor H/H # Renal osteodystrophy Monitor Ca & phos # DM2 Mngt per primary team # Hypothyroidism Levothyroxine Physical Examination - Vital Signs Temperature: 97.6 F Blood Pressure: 113/61 Pulse: 80 Respirations: 20 Pulse Ox (%): 95 - Studies Microbiology Data (last 24 hrs): 08/26/22 23:27 Wound - Left Heel Gram Stain - Final 08/26/22 23:26 Wound - Right Heel Gram Stain - Final 08/26/22 23:26 Wound - Right Heel Culture & Sensitivity - Final Pseudomonas Aeruginosa Staph Aureus 08/26/22 19:07 Blood - Blood Aerobic Blood Culture - Final Staph Aureus 08/26/22 19:07 Blood - Blood Blood Culture Gram Stain - Final 08/26/22 19:07 Blood - Blood Anaerobic Blood Culture - Final Staph Aureus 08/26/22 19:07 Blood - Blood Gram Stain - Final 08/26/22 19:36 Blood - Blood Aerobic Blood Culture - Final Staph Aureus 08/26/22 19:36 Blood - Blood Blood Culture Gram Stain - Final 08/26/22 19:36 Blood - Blood Anaerobic Blood Culture - Final Staph Aureus 08/26/22 19:36 Blood - Blood Gram Stain - Final
--- NOTE | 2022-08-29 20:21 | RAD REPORT ---
EXAM DESCRIPTION: US - Extrem Venous W Compress Greg - 08/29/2022 7:56 pm CLINICAL HISTORY: Swelling COMPARISON: None. TECHNIQUE: Real-time sonographic evaluation of the bilateral lower extremity deep venous systems was performed. FINDINGS: Exam is technically limited given patient's pain, limiting ability to compress the deep ve nous structures in some regions. Normal compressibility, flow augmentation, phasic flow and spontaneous flow is identified within the evaluated left and right lower extremity deep venous systems. No intraluminal filling defects seen. IMPRESSION: No DVT in either lower extremity.
--- NOTE | 2022-08-29 20:26 | RAD REPORT ---
EXAM DESCRIPTION: US - Lower Extremity Arterial Bilat - 08/29/2022 7:54 pm CLINICAL HISTORY: wounds on lower legs. possible surg in am COMPARISON: Lower Extremity Arterial Bilat dated 06/06/2021 TECHNIQUE: Bilateral lower extremity arterial Doppler examination was performed with reji madsen FINDINGS: The right common femoral, superficial femoral, and popliteal arteries are monophasic. The right posterior tibial artery is monophasic with blunted upstroke. The right dorsalis pedis artery is monophasic. The left common femoral, superficial femoral, and popliteal arteries are monophasic. The left posteri or tibial and dorsalis pedis arteries are monophasic with blunted upstroke. The findings have progressed since 2020. IMPRESSION: Moderate to advanced bilateral distal vertebral vascular disease, as above. Findings hav e progressed since 2020.
[2022-08-29] MEDS: AMINO ACIDS/PROTEIN HYDROLYS 30 ML LIQUID.PKT PO SCH (21:00)
[2022-08-29] MEDS: ATORVASTATIN 40 MG TAB PO SCH (21:53)
[2022-08-30 03:53] LABS: Absolute Lymphocytes (CBC) 0.7 K/uL (0.7-4.9); Hematocrit 25.1 % (36.0-45.0); Lymphocytes % 4.4 % (15.3-44.8); MCV 86.3 fL (80-100); MPV 7.4 fL (7.6-11.3)
[2022-08-30 04:27] LABS: Albumin 2.1 g/dL (3.4-5.0); Bilirubin Total 0.9 mg/dL (0.2-1.0); Potassium 3.6 mmol/L (3.5-5.1); Protein, Total 6.5 g/dL (6.4-8.2)
[2022-08-30] MEDS: LEVOTHYROXINE SOD 0.075 MG TAB PO SCH (04:41)
[2022-08-30 04:47] LABS: Anisocytosis 1+; Blood Morphology Comment NOTED (NOT SEEN); Platelet Estimate ADEQ
[2022-08-30] MEDS: INSULIN -REGULAR HUMAN 50 UNIT/0.5 ML ML SQ SCH ×4 (07:30→21:00)
[2022-08-30] MEDS: ASPIRIN EC 81 MG TAB PO SCH (09:00)
[2022-08-30] MEDS: AMINO ACIDS/PROTEIN HYDROLYS 30 ML LIQUID.PKT PO SCH ×2 (09:00→21:00)
[2022-08-30] MEDS: CEFEPIME 1 GM in NA CHLORIDE 0.9% 100 ML IV SCH (09:39)
[2022-08-30] MEDS ORDERED: NA CHLORIDE 0.9% 500 ML ONE (10:09)
[2022-08-30] MEDS ORDERED: LIDOCAINE 2% MPF 5 ML VIAL ONE (10:59)
[2022-08-30] MEDS ORDERED: propofoL 200 MG/20 ML VIAL IV ONE (10:59)
[2022-08-30] MEDS ORDERED: ONDANSETRON 4 MG/2 ML VIAL ONE (10:59)
[2022-08-30] MEDS ORDERED: FENTANYL CITR 100 MCG/2 ML ONE (10:59)
[2022-08-30] MEDS ORDERED: BUPIVACAINE 0.25% PF 10 ML VIAL ONE (11:05)
[2022-08-30] MEDS ORDERED: BUPIVACAINE 0.5% PF 10 ML VIAL ONE (11:06)
[2022-08-30] MEDS ORDERED: NS 0.9% VIAL 10 ML ONE (11:49)
--- NOTE | 2022-08-30 11:57 | P.OP ---
Preoperative diagnosis: RIGHT Heel Ulcer Postoperative diagnosis: RIGHT Heel Ulcer Primary procedure: Excisional Debridement of RIGHT heel ulcer Anesthesia: MAC + Local Estimated blood loss: <5cc Specimen: debridement tissue Findings: pressure necrosis to RIGHT heel, ~ 3cm round wound to plantar fascia Complications: None Transferred to: Recovery Room Condition: Good
[2022-08-30] MEDS: VANCOMYCIN 1 GM in NA CHLORIDE 0.9% 250 ML IVPB SCH (14:43)
[2022-08-30] MEDS: HYDROCODONE/APAP 7.5/325 MG TAB PO PRN ×2 (17:35→21:49)
--- NOTE | 2022-08-30 18:35 | OP ---
Date of Procedure: 08/30/2022 Surgeon: Avtar Peterson MD, Preoperative Diagnosis: Right heel ulcer. Postoperative Diagnosis: Right heel ulcer. Procedure Performed: Excisional debridement of right heel ulcer. Anesthesia: MAC plus local with 0.25% Marcaine. Estimated Blood Loss: Less than 5 cc. Specimen: Debridement tissue. Findings: Pressure necrosis of the right heel approximately 3 cm round into the plantar fascia, but not involving tendons or ligaments. Complications: None. Disposition: The patient was transferred to the recovery room in good condition. Procedure In Detail: After informed consent was obtained, the patient was brought into the operating room, prepped and draped in the usual sterile fashion after adequate anesthesia was achieved. I dem arcated the area of the right heel where black necrosis was evident. I circumferentially dissected t his area out with a 15 blade down to subcutaneous tissues. I then removed this ellipse of abnormal t issue, which appeared to have pressure necrosis and sent off for pathologic examination. The area wa s approximately 3 cm in size, round. Then, I achieved hemostasis easily with electrocautery and the area of bleeding was not brisk throughout this area and as such I packed the wound with Vashe-soaked Kerlix and a sterile dressing placed over top. The patient tolerated the procedure well without evid ence of complication and transferred to PACU in good condition. All counts were correct at the end of the ca se. TK/MODL Voice ID: [id number] Report ID: [id number]
[2022-08-30] MEDS: ONDANSETRON 4 MG/2 ML VIAL IV PRN (21:49)
[2022-08-30] MEDS: ATORVASTATIN 40 MG TAB PO SCH (21:49)
[2022-08-30] MEDS: HEPARIN 5000 UNIT/ML 1 ML VIAL SQ SCH (21:50)
[2022-08-31] MEDS: LEVOTHYROXINE SOD 0.075 MG TAB PO SCH (05:27)
[2022-08-31] MEDS: HEPARIN 5000 UNIT/ML 1 ML VIAL SQ SCH ×2 (06:42→20:30)
[2022-08-31] MEDS: INSULIN -REGULAR HUMAN 50 UNIT/0.5 ML ML SQ SCH ×4 (07:30→21:00)
[2022-08-31] MEDS: CLOPIDOGREL 75 MG TABLET PO SCH (09:00)
[2022-08-31] MEDS: ASPIRIN EC 81 MG TAB PO SCH (09:00)
[2022-08-31] MEDS: AMINO ACIDS/PROTEIN HYDROLYS 30 ML LIQUID.PKT PO SCH ×2 (09:00→21:00)
[2022-08-31] MEDS: CEFEPIME 1 GM in NA CHLORIDE 0.9% 100 ML IV SCH (09:46)
[2022-08-31] MEDS ORDERED: LIDOCAINE 1% 20 ML MDV ONE (11:39)
[2022-08-31] MEDS ORDERED: HEPA 1000U/500MLS 3,000 UNIT/1,500 ML BAG IV ONE (11:39)
[2022-08-31] MEDS ORDERED: ATROPINE SULF 1 MG/10 ML SYR IV ONE (11:59)
[2022-08-31] MEDS ORDERED: NA CHLORIDE 0.9% 500 ML ONE (11:59)
[2022-08-31] MEDS ORDERED: FENTANYL CITR 100 MCG/2 ML ONE (12:08)
[2022-08-31] MEDS ORDERED: MIDAZOLAM HCL 5 ML ONE (12:09)
[2022-08-31] MEDS ORDERED: FLUMAZENIL 0.1 MG/ML (5 mL VIAL) IV ONE (12:09)
[2022-08-31] MEDS ORDERED: NALOXONE 0.4 MG/ML VIAL ONE (12:09)
[2022-08-31] MEDS ORDERED: MIDAZOLAM HCL 2 MG/2 ML INJ ONE (12:09)
[2022-08-31] MEDS ORDERED: NITROGLYCERIN 100 MCG/ML SYR (for cath lab use only) IV ONE (12:10)
[2022-08-31] MEDS ORDERED: VERAPAMIL HCL 10 MG/4 ML VIAL IV ONE (12:10)
[2022-08-31] MEDS ORDERED: HEPARIN 5000 UNIT/ML 1 ML VIAL ONE (12:10)
[2022-08-31] MEDS ORDERED: ONDANSETRON 4 MG/2 ML VIAL ONE (12:11)
[2022-08-31] MEDS: HYDROCODONE/APAP 7.5/325 MG TAB PO PRN ×2 (14:52→20:27)
--- NOTE | 2022-08-31 15:25 | OP ---
Date of Procedure: 08/31/2022 Surgeon: PATRICIA SLOAN Procedures Performed: 1.Bilateral selective peripheral angiogram. 2.Transesophageal echocardiogram. Indication: 1.Severe peripheral vascular disease. 2.Questionable endocarditis. Access: Right radial artery 6-Macanese closed with TR band. Complications: None. Bleeding: Less than 10 mL. Anesthesia: Total sedation time was 15 minutes. Used fentanyl and Versed. Description Of Procedure: After risks, benefits, and alternatives were explained, the patient agreed to the procedure and signed informed consent. The patient was brought into cardiac catheterization laboratory, prepped and draped in the usual sterile fashion. Then, I accessed right radial artery us ing a pediatric micropuncture kit, placed a 6-Macanese Slender sheath, and then took a 4-Macanese long mu ltipurpose catheter with side holes all the way into the common femoral artery and performed a select hermes angiogram of the right side and the same catheter was used for the left side as well. I placed w ithin the left common femoral artery on the left side as well and performed a peripheral angiogram wi th runoff. Then, advanced the catheter into the SFA on both sides and did DSA images of below the kn ee vessels. Then, the catheter was also placed in distal aorta and performed an angiogram of the inf low vessels and then removed the catheter and sheath, placed above with good hemostasis. Findings: 1.Distal aorta is widely patent. 2.Right common iliac, right internal iliac, and right common femoral artery are all patent without s ignificant disease. Right profunda is patent, the right SFA has a long stent with 20% iSR diffusely and distal to the stent, there is a focal 40% stenosis, below the knee arteries, the anterior tibial is heavily diseased about 60% to 70% and then become CONSTRUCTION PROJECT ADMINISTRATOR. The peroneal artery is only artery that is going all the way down to the toes and it does not have any major disease. The posterior tibial art eboni also has significant disease and becomes CONSTRUCTION PROJECT ADMINISTRATOR shortly below the knee. 3.The left common iliac, internal iliac, and left common femoral artery are clear of disease. Left profunda is widely patent and then the left SFA has a long stent with diffuse 10% to 20% iSR and then there was a focal 70% stenosis distal to the stent, below the knee vessels, the anterior tibial star ts with diffuse 20% to 30% and then becomes CONSTRUCTION PROJECT ADMINISTRATOR. The posterior tibial is diffusely diseased, then be comes CONSTRUCTION PROJECT ADMINISTRATOR shortly after below the knee level and then the peroneal artery is only 1 that goes all the way to the toes and also gives collaterals back to the posterior tip of the anterior tibial. Transesophageal Echocardiogram Procedure: After numbing the back of the throat and giving her Versed , the GERALDINE probe was advanced without difficulty. GERALDINE was performed and removed the probe without dif ficulties. Conclusion: Severe peripheral vascular disease below the knee. Plan: Staged intervention. /RENÉ Voice ID: [id number] Report ID: [id number]
--- NOTE | 2022-08-31 17:29 | P.PN ---
Date of Service: 08/30/22 Subjective Echocardiogram was negative for vegetations. Discussed with cardiology and patient will get an aortogram and a GERALDINE in the morning. Continue with antibiotic therapy as repeat blood cultures have grown out MRSA as well. Physical Examination - Vital Signs reviewed - Physical Exam General: Alert, In no apparent distress, Oriented x3 Respiratory: Clear to auscultation bilaterally Cardiovascular: RRR w/out murmur Gastrointestinal: Soft NT/ND BS positive Musculoskeletal: No C/C/E Neurological: No focal deficits Skin: Bilateral heel wound and right hand/finger wound Assessment & Plan - Problems (Diagnosis) (1) ESRD (end stage renal disease) Current Visit: Yes Status: Acute (2) Diabetes mellitus Current Visit: No Status: Acute (3) Hyperkalemia Current Visit: No Status: Acute (4) NSTEMI (non-ST elevated myocardial infarction) Current Visit: No Status: Acute (5) Hypothyroidism Current Visit: No Status: Chronic Qualifiers: Hypothyroidism type: acquired Qualified Code(s): E03.9 - Hypothyroidism, unspecified (6) Type 2 diabetes mellitus Current Visit: No Status: Chronic Qualifiers: Diabetes mellitus intermediate accountant insulin use: with intermediate accountant use Diabetes mellitus complication status: with hyperglycemia Qualified Code(s): E11.65 - Type 2 diabetes mellitus with hyperglycemia; Z79.4 - adjunct faculty for medical terminology (current) use of insulin (7) Anemia Current Visit: No Status: Acute Qualifiers: Anemia type: due to chronic kidney disease Chronic kidney disease stage: on chronic dialysis Qualified Code(s): N18.6 - End stage renal disease; D63.1 - Anemia in chronic kidney disease; Z99.2 - Dependence on renal dialysis (8) Congestive heart failure (CHF) Current Visit: No Status: Acute (9) Obesity Current Visit: No Status: Acute - Plan Continue with POC as mentioned below: 1. Continue with antibiotics; arrange for outpt antibiotics; IV vancomycin after HD 2. ESRD; Nephrology for HD 3. Continue with debridement per surgery 4. Aspirin/lipitor; statin therapy and antiplatelet therapy fort PAD/CAD; Aortogram and GERALDINE in the morning 5. BP and BS are stable 6. PT eval 7. Monitor H&H 8. GI/DVT prophylaxis
--- NOTE | 2022-08-31 17:32 | P.PN ---
Date of Service: 08/31/22 Subjective GERALDINE and aortogram were done today. Will discuss with cardiology regarding results. Blood cultures once again. Arrange for outpatient IV vancomycin x4 weeks. Physical Examination - Vital Signs reviewed - Physical Exam General: Alert, In no apparent distress, Oriented x3 Respiratory: Clear to auscultation bilaterally Cardiovascular: RRR w/out murmur Gastrointestinal: Soft NT/ND BS positive Musculoskeletal: No C/C/E Neurological: No focal deficits Skin: Bilateral heel wound and right hand/finger wound Assessment & Plan - Problems (Diagnosis) (1) ESRD (end stage renal disease) Current Visit: Yes Status: Acute (2) Diabetes mellitus Current Visit: No Status: Acute (3) Hyperkalemia Current Visit: No Status: Acute (4) NSTEMI (non-ST elevated myocardial infarction) Current Visit: No Status: Acute (5) Hypothyroidism Current Visit: No Status: Chronic Qualifiers: Hypothyroidism type: acquired Qualified Code(s): E03.9 - Hypothyroidism, unspecified (6) Type 2 diabetes mellitus Current Visit: No Status: Chronic Qualifiers: Diabetes mellitus long distance operator insulin use: with long distance operator use Diabetes mellitus complication status: with hyperglycemia Qualified Code(s): E11.65 - Type 2 diabetes mellitus with hyperglycemia; Z79.4 - terminal operator (current) use of insulin (7) Anemia Current Visit: No Status: Acute Qualifiers: Anemia type: due to chronic kidney disease Chronic kidney disease stage: on chronic dialysis Qualified Code(s): N18.6 - End stage renal disease; D63.1 - Anemia in chronic kidney disease; Z99.2 - Dependence on renal dialysis (8) Congestive heart failure (CHF) Current Visit: No Status: Acute (9) Obesity Current Visit: No Status: Acute - Plan Continue with POC as mentioned below: 1. Continue with antibiotics; arrange for outpt antibiotics; IV vancomycin after HD 2. ESRD; Nephrology for HD 3. Continue with debridement per surgery 4. Aspirin/lipitor; statin therapy and antiplatelet therapy fort PAD/CAD; Aortogram and GERALDINE in the morning 5. BP and BS are stable 6. PT eval pending 7. Monitor H&H 8. GI/DVT prophylaxis
--- NOTE | 2022-08-31 20:01 | PN ---
Date of Progress Note: 08/31/2022 Subjective: Seen by bedside. She is doing clinically better, does not have any chest pain or shortn ess of breath. Her breathing has improved significantly. Review of Systems: No chest pain, shortness of breath, orthopnea, or cough. No nausea, vomiting, or diarrhea. All othe r systems reviewed and they are negative. Physical Examination: Vital Signs: Reviewed. Head and Neck: Pupils are equal, reactive to light. Intact eye movements. No JVD. No cervical lym phadenopathy. Neck is supple. Thyroid is not enlarged. Lungs: Clear to auscultation bilaterally. No rhonchi, wheezing, or crackles. No accessory muscle u se. Heart: Regular rate and rhythm. No extra sounds. Abdomen: Soft, nontender. Bowel sounds positive. No organomegaly. No masses or hernia. No rigidi ty or rebound. Extremities: No clubbing, cyanosis. Positive edema. Neurologic: Alert, awake, oriented x3. No acute focal deficits appreciated. Investigations: Labs were reviewed. Assessment/recommendation: 1.Peripheral vascular disease. We will obtain peripheral angiogram and further recommendations acco rdingly. 2.End-stage renal disease, on hemodialysis. Continue. 3.Fluid overload due to missing dialysis twice and this is improved with in-house dialysis. 4.Elevated troponin. Coronary status is known. She needs she had PCI of the RCA and the left circu mflex and needs a staged PCI of the LAD, which will be done as an outpatient in [place] as she will n eed atherectomy. 5.Questionable endocarditis, to plan for GERALDINE today after the left heart catheterization. SR/MODL Voice ID: [id number] Report ID: [id number]
[2022-08-31] MEDS: ATORVASTATIN 40 MG TAB PO SCH (20:28)
[2022-08-31 22:12] LABS: Potassium 3.2 mmol/L (3.5-5.1)
--- NOTE | 2022-08-31 22:23 | CON ---
Date of Consultation: 08/30/2022 Reason For Consultation: Elevated BUN and creatinine. History Of Present Illness: This is a pleasant 67-year-old female, well known to me from the dialysis with significant past medical history of hypertension, hyperlipidemia, gastroparesis, diabetes complicated with neuropathy and gastroparesis, and nephropathy, end-stage renal disease, on hemodialysis. Used to be on PD, failed. CAD, status post PTCA, patient came to the hospital with low blood pressure, found to have multiple ulcers on the feet. Patient was taken for debridement. Patient was started on IV antibiotic. Past Medical History: Include: 1. Diabetes complicated with neuropathy and nephropathy. 2. Hypertension. 3. Hyperlipidemia. 4. End-stage renal disease, on hemodialysis currently, used to be on PD. 5. CAD, status post PTCA. Allergies: NO KNOWN DRUG ALLERGIES. Past Surgical History: Includes PermCath placement, PD catheter placement and removal, PTCA, EGD. Family History: Positive for hypertension and end-stage renal disease. Social History: Lives with family. Denied smoking. Denied drinking. Denied drugs abuse. Review of Systems: Head and Neck: No red eye. No ear pain. GI: Has nausea. No vomiting. : No polyuria, no dysuria, no hematuria. Denial Management Representative: No vaginal discharge. Respiratory: No shortness of breath. Cardiovascular: No chest pain. Endocrine: No polydipsia. Skin: No rash. Neuro: Has neuropathy. Musculoskeletal: Foot pain. Physical Examination: Vital Signs: Blood pressure 110/78, pulse of 88. Chest: Clear to auscultation. Heart: S1, S2. Systolic murmur. Abdomen: Soft, nontender. Extremities: Dressing on the right foot ulcer on the left side with eschar, dry, clean. Neurological: Alert, oriented x3. Nonfocal. Laboratory Data: WBC 7.6, hemoglobin 9.6, sodium 138, potassium 5.6, bicarb 23, creatinine 6.8, calcium 8.9. Current Medications: Include: 1. Vancomycin. 2. Tylenol. 3. Heparin. 4. Renvela. Assessment And Plan: 1. End-stage renal disease, on hemodialysis. We will resume hemodialysis 3 times a week. 2. Hypertension, controlled, optimal. Continue current medication. Currently, blood pressure on the lower side. We will use sodium module. 3. Anemia of chronic kidney disease. We will follow up with protocol. 4. Secondary hyperparathyroidism. Continue Renvela. 5. Peripheral arterial disease with the ulcer in the foot, status post debridement. Continue antibiotic. We will follow up with the Primary and the Surgery. Continue aspirin. 6. Coronary artery disease, stable. Follow up with the Primary and Cardiology. time spend exam the patient face to face reviewing data lab and radiology , placing order , discussing with the patient and nursing staff , discussing with hospitalist >65 min CR Voice ID: [id number] Report ID: [id number] MTDD
[2022-08-31] MEDS: VANCOMYCIN 1 GM in NA CHLORIDE 0.9% 250 ML IVPB SCH (22:40)
--- NOTE | 2022-09-01 00:08 | PN ---
Date of Progress Note: 08/31/2022 Chief Complaint: End-stage renal disease, diabetes mellitus, diabetic foot infection, and heel ulcer . The patient has peripheral vascular disease. She underwent angiogram today. Review of Systems: The patient denies fever. Physical Examination: Lungs: Clear to auscultation bilaterally. Heart: S1, S2. Abdomen: Soft. Extremities: Dressing in place. Impression And Plan: 1.End-stage renal disease. Dialysis will be scheduled with ultrafiltration. 2.Heel ulcer. Antibiotic and wound care. Angiogram was done today and further recommendation from Cardiology. 3.[id number] diastolic congestive heart failure. Continue dialysis with ultrafiltration to tr eat fluid overload. 4.Anemia due to chronic kidney disease. Continue XENIA. Monitor H and H. 5.Renal osteodystrophy. Monitor phosphorus and calcium. Adjust binders. EB/MODL Voice ID: [id number] Report ID: [id number]
[2022-09-01] MEDS: HYDROCODONE/APAP 7.5/325 MG TAB PO PRN ×5 (00:39→20:57)
[2022-09-01] MEDS: LEVOTHYROXINE SOD 0.075 MG TAB PO SCH (05:56)
[2022-09-01 06:45] LABS: Absolute Lymphocytes (CBC) 0.7 K/uL (0.7-4.9); Hematocrit 24.7 % (36.0-45.0); Lymphocytes % 6.7 % (15.3-44.8); MPV 7.1 fL (7.6-11.3); RBC Red Blood Cell Count 2.87 M/uL (3.86-4.86)
[2022-09-01] MEDS: INSULIN -REGULAR HUMAN 50 UNIT/0.5 ML ML SQ SCH ×4 (07:30→21:00)
[2022-09-01 07:34] LABS: Bilirubin Total 0.7 mg/dL (0.2-1.0); Magnesium 2.3 mg/dL (1.6-2.4); Potassium 3.5 mmol/L (3.5-5.1); Protein, Total 6.8 g/dL (6.4-8.2)
--- NOTE | 2022-09-01 08:59 | TEE ---
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 NO VALVULAR VEGETATION IS SEEN 2. NORMAL LEFT VENTRICULAR EJECTION FRACTION 55-60% 3. MILD MITRAL REGURGITATION 4. MILD TRICUSPID REGURGITATION 5. MILD DIFFUSE AORTIC ATHEROSCLEROSIS TECHNOLOGIST: JORDAN GONZALEZ
[2022-09-01] MEDS: AMINO ACIDS/PROTEIN HYDROLYS 30 ML LIQUID.PKT PO SCH ×2 (09:00→20:58)
[2022-09-01] MEDS: HEPARIN 5000 UNIT/ML 1 ML VIAL SQ SCH ×2 (09:58→20:58)
[2022-09-01] MEDS: ASPIRIN EC 81 MG TAB PO SCH (09:58)
[2022-09-01] MEDS: CLOPIDOGREL 75 MG TABLET PO SCH (10:02)
[2022-09-01] MEDS ORDERED: NA CHLORIDE 0.9% 0 ML ONE (10:13)
[2022-09-01] MEDS: CEFEPIME 1 GM in NA CHLORIDE 0.9% 100 ML IV SCH (11:10)
--- NOTE | 2022-09-01 11:36 | P.PN ---
Subjective Date of Service: 09/01/22 Chief Complaint: Septic shock, hyperkalemia, ESRD Subjective: No new changes Physical Examination - Vital Signs Temperature: 96.8 F Blood Pressure: 133/71 Pulse: 98 Respirations: 18 Pulse Ox (%): 99 - Physical Exam General: In no apparent distress HEENT: Atraumatic, Normocephalic Neck: Supple, JVD not distended Respiratory: Other (symmetric chest expansion) Cardiovascular: No rubs, No murmurs Gastrointestinal: Soft and benign, No guarding Musculoskeletal: No clubbing Integumentary: No warmth Neurological: Normal tone Lymphatics: No axilla or inguinal lymphadenopathy Urinary: Other (no bladder distention) External genitalia: Deferred Rectal: Deferred - Studies Microbiology Data (last 24 hrs): 08/26/22 23:27 Wound - Left Heel Gram Stain - Final 08/26/22 23:27 Wound - Left Heel Culture & Sensitivity - Final Pseudomonas Aeruginosa Staph Aureus Assessment And Plan - Plan # ESRD on outpt HD MWF at [facility] HD received yesteday. Next HD tomorrow. HD access: L TDC EDW: 101 kg # Hyperkalemia Resolved HD as above # Severe sepsis likely secondary to infected bilateral diabetic heel pressure ulcers with gram-positive bacteremia Per other services # Acute on chronic diastolic heart failure HD as above # Anemia H/H below goal Retacrit SQ TTS # Renal osteodystrophy Monitor Ca & phos # DM2 Mngt per primary team # Hypothyroidism Levothyroxine
--- NOTE | 2022-09-01 13:35 | CON ---
History Of Present Illness: The patient has been consulted for multiple blood cultures being positiv e for Staph aureus, left heel wound, and right heel wound, is also growing Staph aureus and Pseudomon as aeruginosa. The patient is currently being treated with cefepime and vancomycin. The patient was initially admitted on 08/26 with significant past medical history of end-stage renal diseas e, coronary artery disease, anemia of chronic disease, diabetes mellitus, hypertension, hypothyroidis m, coming in with shortness of breath. Past Medical History: As per HPI. Social History: Nonsmoker, nondrinker. Family History: Noncontributory. Medications: Vancomycin and cefepime. Allergies: CODEINE, PROMETHAZINE, AND ADHESIVE TAPE. Review of Systems: A 10-point review was performed. Physical Examination: General: This is a 67-year-old female, lying in bed, not in any acute cardiopulmonary distress. Vital Signs: Temperature 96.8, pulse 98, respiration 18, blood pressure 133/71, currently on 3 L jackie al cannula. HEENT: Unremarkable. Neck: Supple. Lungs: Basal crackles. Heart: S1, S2. Regular. Abdomen: Soft, nontender. Bowel sounds present. Extremity: Multiple wounds noted. Laboratory Data: Shows WBC 10.2, hemoglobin 8.1, platelets are 144. Chemistry shows BUN of 40, crea tinine 4.3. Micro data showing Staph aureus. Blood culture being positive. No negative blood cultu res present at this time. Assessment And Plan: Staphylococcus aureus bacteremia, rule out endocarditis and possible tunneled c atheter infection on the left chest wall. Recommend to get GERALDINE and possible tunnel catheter placemen t. If blood cultures remain positive, we will recommend to repeat blood cultures. End-stage renal d isease, anemia of chronic disease, thrombocytopenia, leukocytosis improving. Currently on cefepime a nd vancomycin. Bacteremia secondary to Staphylococcus aureus. Repeat blood cultures, rule out endoc arditis and tunnel catheter infection. Diabetic foot ulcer and diabetic neuropathy and diabetes [place] itus, anemia of chronic disease. Continue current treatment. We will follow the patient closely. Thank you, Dr. Dhillon for consult. NF/MODL Voice ID: [id number] Report ID: [id number]
--- NOTE | 2022-09-01 18:26 | PN ---
Date of Progress Note: 09/01/2022 Subjective: Seen by bedside. She is doing well. No chest pain. Her breathing is much better. Review of Systems: No chest pain, shortness of breath, orthopnea, cough, nausea, vomiting, or diarrhea. All other syste ms reviewed and they were negative. Physical Examination: Vital Signs: Reviewed. Head and Neck: Pupils are equal and reactive to light. Intact eye movements. No JVD. No cervical lymphadenopathy. Neck is supple. Thyroid is not enlarged. Lungs: Clear to auscultation bilaterally. No rhonchi, wheezing, or crackles. No accessory muscle u se. Heart: Regular rate and rhythm. No extra sounds. Abdomen: Soft, nontender. Bowel sounds positive. No organomegaly. No masses or hernia. No rigidi ty or rebound. Extremities: No edema, clubbing, or cyanosis. Intact pulses. Skin: No rashes. Neurologic: Alert, awake, and oriented x3. No acute focal deficits appreciated. Investigations: BUN 40, creatinine 4.3. Hemoglobin is 8.1, white blood count is 10.2. Assessment/recommendation: 1.Peripheral vascular disease. She has severe peripheral vascular disease below the knee and her ve ssels are extremely small with chronic total occlusion and diffuse disease prior to that. I recommen d aggressive medical management for this patient. 2.Coronary artery disease. Elevated troponins, no chest pain, and status post percutaneous coronary intervention of right coronary artery and left circumflex. Percutaneous coronary intervention of the left anterior descending will be planned to be done as an outpatient in [place] when she is clini sandy stable. SR/MODL Voice ID: [id number] Report ID: [id number]
[2022-09-01] MEDS: ATORVASTATIN 40 MG TAB PO SCH (20:57)
[2022-09-02] MEDS: HYDROCODONE/APAP 7.5/325 MG TAB PO PRN ×4 (06:05→20:59)
[2022-09-02] MEDS: LEVOTHYROXINE SOD 0.075 MG TAB PO SCH (06:05)
[2022-09-02] MEDS: INSULIN -REGULAR HUMAN 50 UNIT/0.5 ML ML SQ SCH ×4 (07:30→21:00)
[2022-09-02] MEDS: HEPARIN 5000 UNIT/ML 1 ML VIAL SQ SCH ×2 (08:52→20:59)
[2022-09-02] MEDS: ASPIRIN EC 81 MG TAB PO SCH (08:52)
[2022-09-02] MEDS: CEFEPIME 1 GM in NA CHLORIDE 0.9% 100 ML IV SCH (08:53)
[2022-09-02] MEDS: AMINO ACIDS/PROTEIN HYDROLYS 30 ML LIQUID.PKT PO SCH ×2 (08:53→21:00)
[2022-09-02] MEDS: CLOPIDOGREL 75 MG TABLET PO SCH (08:53)
--- NOTE | 2022-09-02 10:14 | P.PN ---
Subjective Date of Service: 09/02/22 Chief Complaint: Septic shock, hyperkalemia, ESRD Subjective: Improving (no acute events) Physical Examination - Vital Signs Temperature: 96.8 F Blood Pressure: 133/71 Pulse: 98 Respirations: 18 Pulse Ox (%): 99 - Physical Exam General: Alert, In no apparent distress, Cooperative Integumentary: Other (RIGHT heel wound is stable, no acute changes.) Assessment And Plan - Plan - Severe PAD - continue wound care - follow up in clinic in 1-2 weeks
--- NOTE | 2022-09-02 14:53 | P.PN ---
Date of Service: 09/01/22 Subjective Long discussion with infectious disease today. They are feeling patient may benefit from different antibiotic coverage like daptomycin. Patient has end- stage renal disease and patient's cultures appear to be sensitive to vancomycin which patient could get after antibiotic therapy. However, she is very weak and debilitated she is not really able to care for her wound. Her right foot is hurting from where the surgery surgical debridement occurred. Patient had removal of the necrotic tissue of the right heel. Wound care is continuing, and we are going to try to make arrangements for LTAC placement. Patient will also need arrangements for outpatient dialysis. Patient is very weak and debilitated so she will need aggressive physical therapy as well as wound care along with IV antibiotic therapy. Physical Examination - Vital Signs reviewed - Physical Exam General: Alert, In no apparent distress, Oriented x3 Respiratory: Clear to auscultation bilaterally Cardiovascular: RRR w/out murmur Gastrointestinal: Soft NT/ND BS positive Musculoskeletal: No C/C/E Neurological: No focal deficits Skin: Bilateral heel wound and right hand/finger wound; dressing is clean/dry/intact Assessment & Plan - Problems (Diagnosis) (1) ESRD (end stage renal disease) Current Visit: Yes Status: Acute (2) Diabetes mellitus Current Visit: No Status: Acute (3) Hyperkalemia Current Visit: No Status: Acute (4) NSTEMI (non-ST elevated myocardial infarction) Current Visit: No Status: Acute (5) Hypothyroidism Current Visit: No Status: Chronic Qualifiers: Hypothyroidism type: acquired Qualified Code(s): E03.9 - Hypothyroidism, unspecified (6) Type 2 diabetes mellitus Current Visit: No Status: Chronic Qualifiers: 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 Diabetes mellitus complication status: with hyperglycemia Qualified Code(s): E11.65 - Type 2 diabetes mellitus with hyperglycemia; Z79.4 - adjunct faculty for medical terminology (current) use of insulin (7) Anemia Current Visit: No Status: Acute Qualifiers: Anemia type: due to chronic kidney disease Chronic kidney disease stage: on chronic dialysis Qualified Code(s): N18.6 - End stage renal disease; D63.1 - Anemia in chronic kidney disease; Z99.2 - Dependence on renal dialysis (8) Congestive heart failure (CHF) Current Visit: No Status: Acute (9) Obesity Current Visit: No Status: Acute - Plan Continue with POC as mentioned below: 1. Continue with antibiotics; arrange for outpt antibiotics; IV vancomycin after HD 2. ESRD; Nephrology for HD 3. Continue with debridement per surgery 4. Aspirin/lipitor; statin therapy and antiplatelet therapy fort PAD/CAD; Aortogram and GERALDINE in the morning 5. BP and BS are stable 6. PT eval pending 7. Monitor H&H 8. GI/DVT prophylaxis
[2022-09-02] MEDS: ONDANSETRON 4 MG/2 ML VIAL IV PRN (14:54)
--- NOTE | 2022-09-02 15:02 | P.PN ---
Date of Service: 09/02/22 Subjective Patient continues to remain stable. Patient denies any new complaints. Discussed with infectious disease yesterday and they were contemplating LTAC placement. Patient has end-stage renal disease and patient's cultures appear to be sensitive to vancomycin which patient could get after antibiotic therapy. However, she is very weak and debilitated she is not really able to care for her wound. Her right foot is hurting from where the surgery surgical debridement occurred. Patient had removal of the necrotic tissue of the right heel. Wound care is continuing, and we are going to try to make arrangements for LTAC placement. Patient will also need arrangements for outpatient dialysis. Patient is very weak and debilitated so she will need aggressive physical therapy as well as wound care along with IV antibiotic therapy. Physical Examination - Vital Signs reviewed - Physical Exam General: Alert, In no apparent distress, Oriented x3 Respiratory: Clear to auscultation bilaterally Cardiovascular: RRR w/out murmur Gastrointestinal: Soft NT/ND BS positive Musculoskeletal: No C/C/E Neurological: No focal deficits Skin: Bilateral heel wound and right hand/finger wound; dressing is clean/dry/intact Assessment & Plan - Problems (Diagnosis) (1) ESRD (end stage renal disease) Current Visit: Yes Status: Acute (2) Diabetes mellitus Current Visit: No Status: Acute (3) Hyperkalemia Current Visit: No Status: Acute (4) NSTEMI (non-ST elevated myocardial infarction) Current Visit: No Status: Acute (5) Hypothyroidism Current Visit: No Status: Chronic Qualifiers: Hypothyroidism type: acquired Qualified Code(s): E03.9 - Hypothyroidism, unspecified (6) Type 2 diabetes mellitus Current Visit: No Status: Chronic Qualifiers: 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 use Diabetes mellitus complication status: with hyperglycemia Qualified Code(s): E11.65 - Type 2 diabetes mellitus with hyperglycemia; Z79.4 - FPC (current) use of insulin (7) Anemia Current Visit: No Status: Acute Qualifiers: Anemia type: due to chronic kidney disease Chronic kidney disease stage: on chronic dialysis Qualified Code(s): N18.6 - End stage renal disease; D63.1 - Anemia in chronic kidney disease; Z99.2 - Dependence on renal dialysis (8) Congestive heart failure (CHF) Current Visit: No Status: Acute (9) Obesity Current Visit: No Status: Acute - Plan Continue with POC as mentioned below: 1. Continue with antibiotics; arrange for outpt antibiotics; IV vancomycin after HD 2. ESRD; Nephrology for HD 3. Continue with wound care per surgery 4. Aspirin/lipitor; statin therapy and antiplatelet therapy for PAD/CAD; Aortogram and GERALDINE completed-no obvious vegetations 5. BP and BS are stable; Continue with strict control 6. PT eval appreciated 7. Monitor H&H 8. Blood culture repeat are pending 9. GI/DVT prophylaxis
[2022-09-02] MEDS ORDERED: Levofloxacin500mg IV 500 MG/100 ML BAG IV ONE (16:00)
[2022-09-02] MEDS ORDERED: EPOETIN ALFA-EPBX 10,000 UNIT/ML VIAL SQ ONE (16:00)
[2022-09-02] MEDS: ATORVASTATIN 40 MG TAB PO SCH (20:59)
[2022-09-02] MEDS: ACETAMINOPHEN 500 MG TAB PO PRN (23:19)
--- NOTE | 2022-09-02 23:29 | PN ---
Date of Progress Note: 09/02/2022 Chief Complaint: End-stage renal disease, severe peripheral vascular disease, status post lower extr emity angiogram. Review of Systems: Patient denies fever or chills. Pain is controlled. Physical Examination: Lungs: Clear to auscultation bilaterally. Heart: S1, S2. Abdomen: Soft. Extremities: Dressing in place. Impression And Plan: 1.End-stage renal disease. Dialysis was done yesterday. Procedure was well tolerated. 2.Heel ulcer. Antibiotics and wound care according to culture results. 3.Acute on chronic diastolic congestive heart failure. Continue dialysis ultrafiltration to prevent fluid overload, to provide metabolic clearance. 4.Anemia due to chronic kidney disease. Continue XENIA. Monitor hemoglobin level. EB/MODL Voice ID: [id number] Report ID: [id number]
[2022-09-03] MEDS: HYDROCODONE/APAP 7.5/325 MG TAB PO PRN ×4 (02:30→18:20)
[2022-09-03] MEDS: LEVOTHYROXINE SOD 0.075 MG TAB PO SCH (06:06)
[2022-09-03 06:19] LABS: Absolute Lymphocytes (CBC) 0.7 K/uL (0.7-4.9); Hematocrit 24.9 % (36.0-45.0); Lymphocytes % 7.2 % (15.3-44.8); MCV 85.3 fL (80-100); MPV 6.7 fL (7.6-11.3); RBC Red Blood Cell Count 2.91 M/uL (3.86-4.86)
[2022-09-03 06:40] LABS: Albumin 1.8 g/dL (3.4-5.0); Bilirubin Total 0.6 mg/dL (0.2-1.0); Magnesium 2.2 mg/dL (1.6-2.4); Potassium 3.4 mmol/L (3.5-5.1); Protein, Total 6.8 g/dL (6.4-8.2)
[2022-09-03] MEDS: INSULIN -REGULAR HUMAN 50 UNIT/0.5 ML ML SQ SCH ×4 (07:30→21:00)
--- NOTE | 2022-09-03 08:13 | RAD REPORT ---
[facility] 6[facility]57 [facility] CLINICAL HISTORY: pneumonia COMPARISON: Chest Single View dated 09/01/2022; Chest Single View dated 08/31/2022; Chest Single View dated 08/30/2022; Chest Single View dated 08/30/2022hest Single View dated 08/26/2022; Chest Single Vie w dated 08/11/2022; Chest Single View dated 08/08/2022; Chest Single View dated 06/14/2022 TECHNIQUE: Portable AP view of the chest. FINDINGS: Left IJ dialysis catheter in place. The lungs are clear, apart from mild bibasilar atelect asis. Decreased inspiration limits evaluation. Trace right effusion along the minor fissure. No pneum othorax or effusion. The cardiomediastinal contours are unremarkable. IMPRESSION: Bibasilar atelectatic changes without evidence of focal consolidation.
[2022-09-03] MEDS: HEPARIN 5000 UNIT/ML 1 ML VIAL SQ SCH ×2 (08:57→21:36)
[2022-09-03] MEDS: ASPIRIN EC 81 MG TAB PO SCH (08:57)
[2022-09-03] MEDS: CLOPIDOGREL 75 MG TABLET PO SCH (08:57)
[2022-09-03] MEDS: AMINO ACIDS/PROTEIN HYDROLYS 30 ML LIQUID.PKT PO SCH ×2 (08:58→21:00)
[2022-09-03] MEDS: ONDANSETRON 4 MG/2 ML VIAL IV PRN ×2 (14:17→20:34)
[2022-09-03] MEDS: COLLAGENASE 30 GM OINTMENT TOP SCH (21:35)
[2022-09-03] MEDS: CALCIUM CARBONATE 500 MG TAB PO SCH (21:36)
[2022-09-03] MEDS: ATORVASTATIN 40 MG TAB PO SCH (21:36)
--- NOTE | 2022-09-04 02:32 | PN ---
Date of Progress Note: 09/03/2022 Chief Complaint: End-stage renal disease, severe peripheral vascular disease, status post lower extr emity angiogram. Review of Systems: Patient is feeling better. Pain is controlled. Patient denies chest pain, palpitation, syncope. Physical Examination: Lungs: Clear to auscultation bilaterally. Heart: S1-S2. Abdomen: Soft, benign. Extremities: Dressing in place. Impression And Plan: 1.End-stage renal disease. Dialysis will be done tomorrow. Continue ultrafiltration. Monitor elec trolytes. Adjust dialysis and dialysis procedure parameters. 2.Heel ulcer, antibiotics and wound care according to culture results. 3.Acute on chronic diastolic congestive heart failure. Continue p.o. fluid restriction. Monitor bl ood pressure. Continue dialysis with ultrafiltration. 4.Anemia due to chronic kidney disease. Continue XENIA. FREDDY/RENÉ Voice ID: [id number] Report ID: [id number]
[2022-09-04] MEDS: INSULIN -REGULAR HUMAN 50 UNIT/0.5 ML ML SQ SCH ×4 (07:30→20:34)
[2022-09-04] MEDS: AMINO ACIDS/PROTEIN HYDROLYS 30 ML LIQUID.PKT PO SCH ×2 (09:00→20:35)
[2022-09-04] MEDS: CLOPIDOGREL 75 MG TABLET PO SCH (09:53)
[2022-09-04] MEDS: ASPIRIN EC 81 MG TAB PO SCH (09:53)
[2022-09-04] MEDS: CALCIUM CARBONATE 500 MG TAB PO SCH ×2 (09:53→20:30)
[2022-09-04] MEDS: HEPARIN 5000 UNIT/ML 1 ML VIAL SQ SCH ×2 (09:54→20:30)
--- NOTE | 2022-09-04 09:54 | P.PN ---
Subjective Date of Service: 09/04/22 Chief Complaint: Septic shock, hyperkalemia, ESRD Patient lying in bed, with legs elevated, with no cardiopulmonary distress. Reported feeling better and was able to eat Physical Examination - Vital Signs Temperature: 96.8 F Blood Pressure: 121/62 Pulse: 101 Respirations: 17 Pulse Ox (%): 97 - Physical Exam General: Alert, In no apparent distress, Oriented x3 Neck: Supple Respiratory: Clear to auscultation bilaterally, Other (2 L NC) Cardiovascular: No edema, Normal S1 S2 Gastrointestinal: Normal bowel sounds Musculoskeletal: No clubbing, No swelling, Other (b/l heel diabetic ulcers and right thumb and 3rd finger eschar/necrosis) Integumentary: Skin lesion (multiple dried lesion in fingers and toes), Diabetic ulcer Neurological: Normal speech, Normal tone, Sensation intact, Normal affect - Studies current medications Acetaminophen (Acetaminophen 500 Mg Tab) 500 mg PO Q4HP PRN PRN Reason: TEMP > 100' F Last Admin: 09/02/22 23:19 Dose: 500 mg Hydrocodone Bitart/Acetaminophen (Hydrocodone/Apap 7.5/325 Mg Tab) 1 tab PO Q4H PRN PRN Reason: Pain scale 8-10 (Severe) Last Admin: 09/03/22 18:20 Dose: 1 tab Albuterol Sulfate (Albuterol 2.5 Mg/3 Ml Neb Sonia) 2.5 mg NEB [id number] PRN PRN Reason: SHORTNESS OF BREATH Amino Acids (Amino Acids/Protein Hydrolys 30 Ml Liquid.Pkt) 30 ml PO BID [facility] Last Admin: 09/03/22 21:00 Dose: Not Given Aspirin (Aspirin Ec 81 Mg Tab) 81 mg PO DAILY [facility] Last Admin: 09/03/22 08:57 Dose: 81 mg Atorvastatin Calcium (Atorvastatin 40 Mg Tab) 40 mg PO BEDTIME [facility] Last Admin: 09/03/22 21:36 Dose: 40 mg Calcium Carbonate/Glycine (Calcium Carbonate 500 Mg Tab) 1,000 mg PO BID [facility] Last Admin: 09/03/22 21:36 Dose: 1,000 mg Clopidogrel Bisulfate (Clopidogrel 75 Mg Tablet) 75 mg PO DAILY [facility] Last Admin: 09/03/22 08:57 Dose: 75 mg Collagenase (Collagenase 30 Gm Ointment) 1 appl TOP DAILY [facility] Last Admin: 09/03/22 21:35 Dose: 1 appl Heparin Sodium (Porcine) (Heparin 5000 Unit/Ml 1 Ml Vial) 5,000 unit SQ Q12HR [facility] Last Admin: 09/03/22 21:36 Dose: 5,000 unit Heparin Sodium (Porcine) (Heparin 1,000 Unit/Ml Vial) 6,000 unit IV EVERY HD PRN PRN Reason: FOR DIALYSIS CATHETER CARE Last Admin: 09/02/22 14:32 Dose: 6,000 unit Heparin Sodium (Porcine) (Heparin 1,000 Unit/Ml Vial) 3,000 unit IV EVERY HD PRN PRN Reason: Prevent Lines Clotting Last Admin: 09/02/22 11:27 Dose: 3,000 unit Vancomycin HCl 1 gm/ Sodium (Chloride) 250 mls @ 250 mls/hr IVPB AFTER EACH DIALYSIS [facility]; Protocol Last Admin: 08/31/22 22:40 Dose: 250 mls Sodium Chloride (Sodium Chloride) 250 mls @ 0 mls/hr IV .Q0M [facility] Levofloxacin/Dextrose (Levaquin 250mg/50 Ml Ivpb) 250 mg in 50 mls @ 50 mls/hr IV Q48H [facility] Insulin Human Regular (Insulin -Regular Human 50 Unit/0.5 Ml Ml) 0 unit SQ ACHS [facility]; Protocol Last Admin: 09/03/22 21:00 Dose: Not Given Levothyroxine Sodium (Levothyroxine Sod 0.075 Mg Tab) 0.15 mg PO DAILYAC [facility] Last Admin: 09/03/22 06:06 Dose: 0.15 mg Ondansetron HCl (Ondansetron 4 Mg/2 Ml Vial) 4 mg IV Q6HP PRN PRN Reason: NAUSEA / VOMITING Last Admin: 09/03/22 20:34 Dose: 4 mg Sodium Chloride (Flush Normal Saline 10 Ml) 10 ml IV BID [facility] Last Admin: 09/03/22 20:34 Dose: 10 ml Microbiology Data (last 24 hrs): Microbiology 08/26/22 23:27 Wound - Left Heel Gram Stain - Final 08/26/22 23:27 Wound - Left Heel Culture & Sensitivity - Final Pseudomonas Aeruginosa Staph Aureus 08/26/22 23:26 Wound - Right Heel Gram Stain - Final 08/26/22 23:26 Wound - Right Heel Culture & Sensitivity - Final Pseudomonas Aeruginosa Staph Aureus 08/26/22 19:07 Blood - Blood Aerobic Blood Culture - Final Staph Aureus 08/26/22 19:07 Blood - Blood Blood Culture Gram Stain - Final 08/26/22 19:07 Blood - Blood Anaerobic Blood Culture - Final Staph Aureus 08/26/22 19:07 Blood - Blood Gram Stain - Final 08/26/22 19:36 Blood - Blood Aerobic Blood Culture - Final Staph Aureus 08/26/22 19:36 Blood - Blood Blood Culture Gram Stain - Final 08/26/22 19:36 Blood - Blood Anaerobic Blood Culture - Final Staph Aureus 08/26/22 19:36 Blood - Blood Gram Stain - Final Assessment And Plan - Current Problems (Diagnosis) (1) Bacteremia Plan: Cultures: - 09/01 and 09/03 BC: Negative - 08/27 BC: Staph aureus, susceptible to Vancomycin and Levofloxacin - 08/26 BC: Staph aureus, susceptible to Vancomycin and Levofloxacin Antibiotics: - Current on IV Vancomycin for HD and Levaquin (09/04- ) Recommendations: - Continue IV Levaquin Q48H for total of 4 weeks duration from 09/01 (repeated BC negative) (2) Diabetic foot ulcers Plan: Cultures: - 08/26 Right heel: Staph aureus and Pseudomonas aeruginosa, susceptible to Vancomycin and Levofloxacin - 08/26 Left heel: Staph aureus and Pseudomonas aeruginosa, susceptible to Vancomycin and Levofloxacin Antibiotics: - Current on IV Vancomycin for HD and Levaquin (09/04- ) Recommendations: - Continue IV Levaquin Q48H for total of 4 weeks duration 08/30: Dr. Peterson had excisional debridement of right heel ulcer - Plan - Septic shock secondary to diabetic/pressure ulcerations bilateral heels: Continue antibiotics for total of 4 weeks - NSTEMI with underlying CAD/recent heart cath with PCI - ESRD on HD MWF with noncompliance/hyperkalemia - Diabetes mellitus type 2insulin-dependent - Chronic diastolic congestive heart failure - Severe protein calorie malnutrition - Anemia of chronic disease - Hypertension - Hypothyroidism with thyroidectomy - hyperlipidemia - Depression - Paralyzed Stomach - Neuropathy - CAD - Back fusion - Bilateral total knee replacements - Cholecystectomy ID will monitor the patient closely for signs of infection with fever and WBC trends Case has been discussed with Dr. Leblanc, N
[2022-09-04] MEDS: LEVOTHYROXINE SOD 0.075 MG TAB PO SCH (09:58)
[2022-09-04] MEDS: HYDROCODONE/APAP 7.5/325 MG TAB PO PRN ×2 (15:00→20:33)
--- NOTE | 2022-09-04 17:03 | P.PN ---
Subjective Date of Service: 09/04/22 Chief Complaint: Septic shock, hyperkalemia, ESRD No acute events overnight. She reports that she is doing well this morning. Her pain is well-controlled. She is pending placement. Appreciate CM assistance. Review of Systems 10-point ROS is otherwise unremarkable Musculoskeletal: Other (bilateral heel wounds) Physical Examination - Vital Signs Temperature: 96.8 F Blood Pressure: 121/62 Pulse: 101 Respirations: 17 Pulse Ox (%): 97 Assessment And Plan - Plan - Physical Exam General: Alert, Oriented x3, No distress HEENT: Atraumatic, EOMI, Sclerae nonicteric Neck: JVD distended Respiratory: Diminished, but clear to auscultation bilaterally, without wheezes, rhonchi, or rales Cardiovascular: Regular rate/rhythm, Normal S1 S2, No gallops, No rubs, No murmurs, Edema (1+ BLE) Gastrointestinal: Normal bowel sounds, Soft and benign, Non-distended, No tenderness, No rebound, No guarding Musculoskeletal: No clubbing Integumentary: No rashes, Pressure ulcer (bilateral heels) Neurological: Normal speech, Normal affect # Septic Shock likely secondary to Methicillin-Sensitive Staphyloccoccus Aureus and Pseudomonas Aeruginosa bilateral Diabetic/Pressure Heel Ulcers with Methicillin-Sensitive Staphyloccoccus Aureus Bacteremia She met sepsis criteria based on HR > 90 bpm, RR > 20 breaths/min, and WBC > 12,000 and the suspected source is soft tissue/skin infection with bacteremia. Severe sepsis is suspected due to concern for tissue hypoperfusion/organ dysfunction based on hypotension (SBP < 90), and lactic acid > 2 mmol/L. Septic shock is suspected due to 2 or more readings of SBP < 90 mmHg. - Infectious Diseases consulted and spoke with Dr. Leblanc - recommendations appreciated - Recommends LTAC with 4 weeks of vancomycin + levofloxacin - General Surgery consulted - recommendations appreciated - S/P Excisional Debridement of right heel ulcer with Dr. Peterson Transthoracic echocardiogram = "1. normal left ventricular ejection fraction 50-55% 2. mild mitral regurgitation 3. mild tricuspid regurgitation 4. moderate diastolic dysfunction 5. right ventricular systolic pressure is elevated 60-65 mmHg" - Transesophageal echocardiogram = "1. no valvular vegetation is seen 2. normal left ventricular ejection fraction 55-60% 3. mild mitral regurgitation 4. mild tricuspid regurgitation 5. mild diffuse aortic atherosclerosis" - Sepsis order set was initiated - Lactate trend: 3.6 -> 3.2 - Procalcitonin: 8.72 - Blood cultures drawn before antibiotics were given - 4/4 positive for MSSA - Wound cultures positive for MSSA and Pseudomonas Aeruginosa - Broad spectrum antibiotics started: Vancomycin + Levofloxacin - In regards to fluids: - 30 mL/kg of IV fluids was not administered due to response to lesser volume and concern for volume overload in ESRD - Chest x-ray = "mild right basilar opacities could reflect a mild developing pneumonia." - CT chest/abdomen/pelvis = "1. Mosaic lung attenuation which could indicate small airways disease or hypoventilation. No evidence of pneumonia. 2. No acute intra-abdominal abnormality." - Bilateral feet x-rays = "1. Suspected soft tissue defects overlying the plantar aspects of the bilateral calcanel with no acute osseous findings in the bilateral feet. 2. relative osteopenic appearance of the bones. Consider DEXA scan if not recently performed to evaluate and potentially treat osteoporosis/osteopenia." - Sepsis reassessment completed by Simon Bolaños NP on 08/27/2022 @ 01:00 AM # Non-ST Segment Elevation Myocardial Infarction # Coronary Artery Disease s/p PCI (08/11/2022) # Hypertension # Hyperlipidemia Recently underwent PCI to RCA on 08/11/2022. Plan was for staged PCI given advanced LAD disease. - Evaluation thus far: - EKG: without STEMI, trend - Serial troponin: 535.8 -> 519.5 -> 543.3 - Transthoracic echocardiogram = "1. normal left ventricular ejection fraction 50-55% 2. mild mitral regurgitation 3. mild tricuspid regurgitation 4. moderate diastolic dysfunction 5. right ventricular systolic pressure is elevated 60-65 mmHg" - Transesophageal echocardiogram = "1. no valvular vegetation is seen 2. normal left ventricular ejection fraction 55-60% 3. mild mitral regurgitation 4. mild tricuspid regurgitation 5. mild diffuse aortic atherosclerosis" - Management plan: - Consult Cardiology - recommendations appreciated - Continue home aspirin, clopidogrel, atorvastatin # Suspect Acute on Chronic Decompensated Congestive Heart Failure with Preserved Ejection Fraction due to Missed Dialysis sessions # Hypervolemia in End-Stage Renal Disease on intermittent Hemodialysis # Anemia of Chronic Kidney Disease Chest x-ray initially suggestive of pneumonia; however, CT chest argues against pneumonia. Suspect chest x-ray findings represent pulmonary edema. - Nephrology and Cardiology consulted - recommendations appreciated - Volume removal via hemodialysis - Daily weights - Strict I/O - 1.5 L fluid restriction, 2 g Na restriction # Type II Diabetes Mellitus - Hgb A1c 5.2 % - difficult to interpret given anemia - Correction scale insulin # Hypothyroidism - Continue home levothyroxine # Microscopic Hematuria - Noted on UA - Follow-up with PCP Abran An M.D.
[2022-09-04] MEDS: Levofloxacin 250mg IV 250 MG/50 ML BAG IV SCH (17:28)
[2022-09-04] MEDS: ATORVASTATIN 40 MG TAB PO SCH (20:30)
[2022-09-04] MEDS: COLLAGENASE 30 GM OINTMENT TOP SCH (20:34)
[2022-09-05] MEDS: HYDROCODONE/APAP 7.5/325 MG TAB PO PRN ×3 (02:28→20:14)
--- NOTE | 2022-09-05 04:41 | PN ---
Date of Progress Note: 09/04/2022 Chief Complaint: End-stage renal disease, severe peripheral vascular disease, history of congestive heart failure, coronary artery disease. The patient underwent lower extremity angiogram. Review of Systems: The patient is feeling better. Pain is controlled. Physical Examination: Lungs: Clear to auscultation bilaterally. Heart: S1, S2. Abdomen: Soft. Extremities: Dressing in place. Impression And Plan: 1.End-stage renal disease. Dialysis today. Continue ultrafiltration to prevent fluid overload and provide management for congestive heart failure. The patient appears to be euvolemic, has slight vick ma. Continue maintenance ultrafiltration for volume control. 2.Heel ulcer, antibiotics and wound care per primary team and Infectious Disease. 3.Acute on chronic diastolic congestive heart failure. Continue p.o. fluid restriction. Monitor bl ood pressure. Continue dialysis and ultrafiltration. 4.Anemia due to chronic kidney disease. Continue XENIA. 5.Renal osteodystrophy. Monitor phosphorus level. Continue binders. EB/MODL Voice ID: [id number] Report ID: [id number]
[2022-09-05] MEDS: LEVOTHYROXINE SOD 0.075 MG TAB PO SCH (06:08)
[2022-09-05 06:10] LABS: Potassium 3.7 mmol/L (3.5-5.1)
[2022-09-05] MEDS: INSULIN -REGULAR HUMAN 50 UNIT/0.5 ML ML SQ SCH ×4 (07:30→20:32)
[2022-09-05] MEDS: SEVELAMER CARBONATE 800 MG TABLET PO SCH ×3 (08:00→16:47)
[2022-09-05] MEDS: FOLIC ACID 1 MG TABLET PO SCH (08:26)
[2022-09-05] MEDS: ASPIRIN EC 81 MG TAB PO SCH (08:26)
[2022-09-05] MEDS ORDERED: NA CHLORIDE 0.9% 500 ML ONE (08:26)
[2022-09-05] MEDS: HEPARIN 5000 UNIT/ML 1 ML VIAL SQ SCH ×2 (08:26→20:15)
[2022-09-05] MEDS: COLLAGENASE 30 GM OINTMENT TOP SCH (08:27)
[2022-09-05] MEDS: AMINO ACIDS/PROTEIN HYDROLYS 30 ML LIQUID.PKT PO SCH ×2 (08:27→20:15)
[2022-09-05] MEDS: CLOPIDOGREL 75 MG TABLET PO SCH (08:27)
[2022-09-05] MEDS ORDERED: propofoL 200 MG/20 ML VIAL IV ONE (08:32)
[2022-09-05] MEDS ORDERED: MIDAZOLAM HCL 2 MG/2 ML INJ ONE (08:32)
[2022-09-05] MEDS ORDERED: LIDOCAINE 2% MPF 5 ML VIAL ONE (08:33)
[2022-09-05] MEDS ORDERED: FENTANYL CITR 100 MCG/2 ML ONE (08:33)
[2022-09-05] MEDS ORDERED: ONDANSETRON 4 MG/2 ML VIAL ONE (08:35)
[2022-09-05] MEDS ORDERED: LIDOCAINE 1% W/EPI 1:100,000 10 ML VIAL ONE (09:25)
[2022-09-05] MEDS ORDERED: HYDROMORPHONE HCL 1 MG/ML INJ ONE (10:25)
--- NOTE | 2022-09-05 10:56 | OP ---
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 Procedure Performed: Amputation of the right middle finger at the middle phalanx level with flap ander sure. Anesthesia: Digital block and sedation of 1% Xylocaine with epinephrine was used to infiltrate the r ight middle finger digital block. Description Of Procedure: The right hand prepped with Betadine scrub and Betadine paint. Dry steril e drapes applied in the usual manner. 6 glove was used as a digital tourniquet. The incision was ma de in the axial and the finger was cut off at the level of the DIP joint. Then the bone was then amp utated at the level of the distal third of the middle phalanx. The flexor sheath was excised with te notomy scissors. The wound was cultured and jet lavaged, irrigated with 3 L of Betadine solution. T ourniquet released. Electrocautery used for hemostasis. There was minimal bleeding and the wound cl osed. The flaps were closed with 4-0 Prolene with vertical mattress simple sutures. Dressed with Xe roform, 2 inch Celia. Patient tolerated procedure well and returned to recovery room. GABRIEL/RENÉ Voice ID: [id number] Report ID: [id number]
--- NOTE | 2022-09-05 11:11 | CON ---
History Of Present Illness: Patient is a 67-year-old white female, who is right-hand dominant, who one month ago developed right middle finger gangrene of her tip. She has severe peripheral vascular disease, on dialysis, renal failure, increased cholesterol, diabetes. She has had knee surgery x2, carpal tunnel of right and left hands. Does not smoke. Does not drink. Allergies: SHE IS ALLERGIC TO CODEINE, PHENERGAN, CYMBALTA. Medications: Including insulin, see her list. Physical Examination: Vital Signs: She is 5 feet 6 inches, 230 pounds. Extremities: Examination of the right middle finger has dry gangrene of the tip. Assessment: Dry gangrene. Plan: Amputation of tip of the right middle finger. GABIREL/MODL Voice ID: [id number] Report ID: [id number] MTDD
--- NOTE | 2022-09-05 13:41 | PN ---
Subjective: The patient lying in bed. Had amputation of her distal middle finger on the right side for gangrenous changes. Denies any headache, nausea, vomiting, chest pain, abdominal pain, constipat ion, or diarrhea. Objective: Vital Signs: Reviewed. Lungs: Basal crackles. Heart: S1, S2. Regular. Abdomen: Soft, nontender. Bowel sounds present. Extremity: No edema. Laboratory Data: WBC 9.4, hemoglobin 8.3, platelets are 178. Chemistry shows BUN of 38, creatinine 4.3. Blood cultures done on are negative to date. Cultures from the right middle finger are pend ing. The patient is currently on Vanco and Levaquin for bacteremia secondary to Staph and pseudomona l right heel infection. Assessment And Plan: Bacteremia secondary to methicillin-susceptible Staphylococcus aureus, end-stag e renal disease, pseudomonal right heel infection. Currently on Levaquin. Diabetes mellitus, anemia of chronic disease, severe protein-calorie malnourishment. We will follow the patient as needed. NF/MODL Voice ID: [id number] Report ID: [id number]
--- NOTE | 2022-09-05 16:33 | PN ---
Date of Progress Note: 09/05/2022 Subjective: The patient was admitted for foot infection, toe finger infection, status post amputation of the middle toe on the right hand. Physical Examination: Vital Signs: Blood pressure 101/56, pulse of 98. Chest: Clear to auscultation. Heart: S1, S2. Regular. Abdomen: Soft, nontender. Extremity: Dressing on the foot, right middle toe, and middle finger amputation with dressing. Laboratory Data: Hemoglobin 8.3. Sodium 131, potassium 3.7, bicarb 27, BUN 38, creatinine 4.3, calcium 9.2. Current Medications: The patient on include; 1. Albuterol. 2. Levaquin. 3. Vancomycin. 4. Plavix. 5. Epogen. 6. Renvela. 7. Tylenol. 8. Folic acid. Assessment And Plan: 1. End-stage renal disease. We will continue the patient on dialysis Sunday, Sunday, Sunday. We will arrange for the dialysis tomorrow and we will follow up outpatient. 2. Hyponatremia, will be corrected with dialysis. 3. Over volume. We will challenge the patient. 4. Hypertension, currently hypotension. We will dialyze the patient on low temperature and sodium module to maintain the blood pressure. Hold all blood pressure medications. 5. Secondary hyperparathyroidism. Continue binder. 6. Finger infection and foot infection, status post amputation and debridement of the foot. We will follow up with Surgery and ID. time spend exam the patient face to face reviewing data lab and radiology , placing order , discussing with the patient and nursing staff , discussing with hospitalist >35 min CR Voice ID: [id number] Report ID: [id number] ASHOK
--- NOTE | 2022-09-05 18:29 | P.PN ---
Subjective Date of Service: 09/05/22 Chief Complaint: Septic shock, hyperkalemia, ESRD No acute events overnight. She underwent right middle finger amputation this morning. She states that her pain is well-controlled. Per Dr. Hayes, she is cleared to be discharged to SNF once accepted. Appreciate CM assistance. Review of Systems 10-point ROS is otherwise unremarkable Musculoskeletal: Hand Pain (right middle finger pain, controlled) Physical Examination - Vital Signs Temperature: 97.0 F Blood Pressure: 116/67 Pulse: 103 Respirations: 16 Pulse Ox (%): 97 Assessment And Plan - Plan - Physical Exam General: Alert, Oriented x3, No distress HEENT: Atraumatic, Sclerae nonicteric Neck: JVD distended Respiratory: Diminished, but clear to auscultation bilaterally, without wheezes, rhonchi, or rales Cardiovascular: Regular rate/rhythm, No murmurs, Edema (1+ BLE) Gastrointestinal: Normal bowel sounds, Soft, No tenderness Musculoskeletal: No clubbing Integumentary: No rashes, Pressure ulcer (bilateral heels), right middle finger covered in surgical dressing Neurological: Normal speech, Normal affect # Septic Shock likely secondary to Methicillin-Sensitive Staphyloccoccus Aureus and Pseudomonas Aeruginosa bilateral Diabetic/Pressure Heel Ulcers with Methicillin-Sensitive Staphyloccoccus Aureus Bacteremia She met sepsis criteria based on HR > 90 bpm, RR > 20 breaths/min, and WBC > 12,000 and the suspected source is soft tissue/skin infection with bacteremia. Severe sepsis is suspected due to concern for tissue hypoperfusion/organ dysfunction based on hypotension (SBP < 90), and lactic acid > 2 mmol/L. Septic shock is suspected due to 2 or more readings of SBP < 90 mmHg. - Infectious Diseases consulted and spoke with Dr. Leblanc - recommendations appreciated - Recommends LTAC with 4 weeks of vancomycin + levofloxacin - General Surgery consulted - recommendations appreciated - S/P Excisional Debridement of right heel ulcer with Dr. Peterson Transthoracic echocardiogram = "1. normal left ventricular ejection fraction 50-55% 2. mild mitral regurgitation 3. mild tricuspid regurgitation 4. moderate diastolic dysfunction 5. right ventricular systolic pressure is elevated 60-65 mmHg" - Transesophageal echocardiogram = "1. no valvular vegetation is seen 2. normal left ventricular ejection fraction 55-60% 3. mild mitral regurgitation 4. mild tricuspid regurgitation 5. mild diffuse aortic atherosclerosis" - Sepsis order set was initiated - Lactate trend: 3.6 -> 3.2 - Procalcitonin: 8.72 - Blood cultures drawn before antibiotics were given - 4/4 positive for MSSA - Wound cultures positive for MSSA and Pseudomonas Aeruginosa - Broad spectrum antibiotics started: Vancomycin + Levofloxacin - In regards to fluids: - 30 mL/kg of IV fluids was not administered due to response to lesser volume and concern for volume overload in ESRD - Chest x-ray = "mild right basilar opacities could reflect a mild developing pneumonia." - CT chest/abdomen/pelvis = "1. Mosaic lung attenuation which could indicate small airways disease or hypoventilation. No evidence of pneumonia. 2. No acute intra-abdominal abnormality." - Bilateral feet x-rays = "1. Suspected soft tissue defects overlying the plantar aspects of the bilateral calcanel with no acute osseous findings in the bilateral feet. 2. relative osteopenic appearance of the bones. Consider DEXA scan if not recently performed to evaluate and potentially treat osteoporosis/osteopenia." - Sepsis reassessment completed by Simon Bolaños NP on 08/27/2022 @ 01:00 AM # Non-ST Segment Elevation Myocardial Infarction # Coronary Artery Disease s/p PCI (08/11/2022) # Hypertension # Hyperlipidemia Recently underwent PCI to RCA on 08/11/2022. Plan was for staged PCI given advanced LAD disease. - Evaluation thus far: - EKG: without STEMI, trend - Serial troponin: 535.8 -> 519.5 -> 543.3 - Transthoracic echocardiogram = "1. normal left ventricular ejection fraction 50-55% 2. mild mitral regurgitation 3. mild tricuspid regurgitation 4. moderate diastolic dysfunction 5. right ventricular systolic pressure is elevated 60-65 mmHg" - Transesophageal echocardiogram = "1. no valvular vegetation is seen 2. normal left ventricular ejection fraction 55-60% 3. mild mitral regurgitation 4. mild tricuspid regurgitation 5. mild diffuse aortic atherosclerosis" - Management plan: - Consult Cardiology - recommendations appreciated - Continue home aspirin, clopidogrel, atorvastatin # Suspect Acute on Chronic Decompensated Congestive Heart Failure with Preserved Ejection Fraction due to Missed Dialysis sessions # Hypervolemia in End-Stage Renal Disease on intermittent Hemodialysis # Anemia of Chronic Kidney Disease Chest x-ray initially suggestive of pneumonia; however, CT chest argues against pneumonia. Suspect chest x-ray findings represent pulmonary edema. 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 Hayes - recommendations appreciated - S/P amputation of right middle finger this morning # Type II Diabetes Mellitus - Hgb A1c 5.2 % - difficult to interpret given anemia - Correction scale insulin # Hypothyroidism - Continue home levothyroxine # Microscopic Hematuria - Noted on UA - Follow-up with PCP Abran An M.D.
[2022-09-05] MEDS: ONDANSETRON 4 MG/2 ML VIAL IV PRN (18:34)
[2022-09-05] MEDS: ATORVASTATIN 40 MG TAB PO SCH (20:14)
[2022-09-05] MEDS ORDERED: FAMOTIDINE 20 MG/2 ML VIAL IV ONE (20:24)
[2022-09-05] MEDS ORDERED: ONDANSETRON 4 MG/2 ML VIAL IV ONE (21:55)
[2022-09-06] MEDS: HYDROCODONE/APAP 7.5/325 MG TAB PO PRN ×4 (02:21→20:01)
[2022-09-06] MEDS: LEVOTHYROXINE SOD 0.075 MG TAB PO SCH (06:08)
[2022-09-06] MEDS: INSULIN -REGULAR HUMAN 50 UNIT/0.5 ML ML SQ SCH ×4 (07:30→20:22)
[2022-09-06] MEDS: FOLIC ACID 1 MG TABLET PO SCH (08:10)
[2022-09-06] MEDS: SEVELAMER CARBONATE 800 MG TABLET PO SCH ×3 (08:10→15:36)
[2022-09-06] MEDS: CLOPIDOGREL 75 MG TABLET PO SCH (08:11)
[2022-09-06] MEDS: ASPIRIN EC 81 MG TAB PO SCH (08:11)
[2022-09-06] MEDS: HEPARIN 5000 UNIT/ML 1 ML VIAL SQ SCH ×2 (08:12→20:02)
[2022-09-06] MEDS: AMINO ACIDS/PROTEIN HYDROLYS 30 ML LIQUID.PKT PO SCH ×2 (08:13→21:00)
[2022-09-06] MEDS: ONDANSETRON 4 MG/2 ML VIAL IV PRN (09:11)
--- NOTE | 2022-09-06 09:21 | P.PN ---
Subjective Date of Service: 09/06/22 Chief Complaint: Septic shock, hyperkalemia, ESRD Patient lying in bed, with legs elevated, with no cardiopulmonary distress. Reported still has mild nausea feeling and sleepy (not getting enough sleep last night) Physical Examination - Vital Signs Temperature: 97 F Blood Pressure: 97/50 Pulse: 92 Respirations: 16 Pulse Ox (%): 92 - Physical Exam General: Alert, In no apparent distress, Oriented x3 Respiratory: Clear to auscultation bilaterally Cardiovascular: No edema, Normal S1 S2 Gastrointestinal: Normal bowel sounds Musculoskeletal: No swelling, No erythema, Other (b/l heel diabetic ulcers and s/p right 3rd finger amputation) Integumentary: Skin lesion (multiple dried lesions in fingers and toes), Tenderness/swelling (s/p right 3rd finger amputation), Diabetic ulcer Neurological: Normal speech, Normal tone, Sensation intact, Normal affect - Studies active medications Acetaminophen (Acetaminophen 500 Mg Tab) 500 mg PO Q4HP PRN PRN Reason: TEMP > 100' F Last Admin: 09/02/22 23:19 Dose: 500 mg Hydrocodone Bitart/Acetaminophen (Hydrocodone/Apap 7.5/325 Mg Tab) 1 tab PO Q4H PRN PRN Reason: Pain scale 8-10 (Severe) Last Admin: 09/06/22 02:21 Dose: 1 tab Albuterol Sulfate (Albuterol 2.5 Mg/3 Ml Neb Sonia) 2.5 mg NEB [id number] PRN PRN Reason: SHORTNESS OF BREATH Amino Acids (Amino Acids/Protein Hydrolys 30 Ml Liquid.Pkt) 30 ml PO BID [facility] Last Admin: 09/06/22 08:13 Dose: 30 ml Aspirin (Aspirin Ec 81 Mg Tab) 81 mg PO DAILY [facility] Last Admin: 09/06/22 08:11 Dose: 81 mg Atorvastatin Calcium (Atorvastatin 40 Mg Tab) 40 mg PO BEDTIME [facility] Last Admin: 09/05/22 20:14 Dose: 40 mg Clopidogrel Bisulfate (Clopidogrel 75 Mg Tablet) 75 mg PO DAILY [facility] Last Admin: 09/06/22 08:11 Dose: 75 mg Collagenase (Collagenase 30 Gm Ointment) 1 appl TOP DAILY [facility] Last Admin: 09/05/22 08:27 Dose: Not Given Epoetin Derrick (Epoetin Derrick 10,000 Unit/Ml Vial) 10,000 unit IV EVERY HD [facility] Folic Acid (Folic Acid 1 Mg Tablet) 1 mg PO DAILY [facility] Last Admin: 09/06/22 08:10 Dose: 1 mg Heparin Sodium (Porcine) (Heparin 5000 Unit/Ml 1 Ml Vial) 5,000 unit SQ Q12HR [facility] Last Admin: 09/06/22 08:12 Dose: 5,000 unit Heparin Sodium (Porcine) (Heparin 1,000 Unit/Ml Vial) 3,000 unit IV EVERY HD PRN PRN Reason: Prevent Lines Clotting Last Admin: 09/04/22 13:42 Dose: 3,000 unit Vancomycin HCl 1 gm/ Sodium (Chloride) 250 mls @ 250 mls/hr IVPB AFTER EACH DIALYSIS [facility]; Protocol Last Admin: 08/31/22 22:40 Dose: 250 mls Sodium Chloride (Sodium Chloride) 250 mls @ 0 mls/hr IV .Q0M [facility] Levofloxacin/Dextrose (Levaquin 250mg/50 Ml Ivpb) 250 mg in 50 mls @ 50 mls/hr IV Q48H [facility] Last Admin: 09/04/22 17:28 Dose: 50 mls Insulin Human Regular (Insulin -Regular Human 50 Unit/0.5 Ml Ml) 0 unit SQ ACHS [facility]; Protocol Last Admin: 09/06/22 07:30 Dose: Not Given Levothyroxine Sodium (Levothyroxine Sod 0.075 Mg Tab) 0.15 mg PO DAILYAC [facility] Last Admin: 09/06/22 06:08 Dose: 0.15 mg Ondansetron HCl (Ondansetron 4 Mg/2 Ml Vial) 4 mg IV Q6HP PRN PRN Reason: NAUSEA / VOMITING Last Admin: 09/06/22 09:11 Dose: 4 mg Sevelamer Carbonate (Sevelamer Carbonate 800 Mg Tablet) 2,400 mg PO TIDWM [facility] Last Admin: 09/06/22 08:10 Dose: 2,400 mg Sodium Chloride (Flush Normal Saline 10 Ml) 10 ml IV BID [facility] Last Admin: 09/06/22 08:12 Dose: 10 ml Microbiology Data (last 24 hrs): Microbiology 08/26/22 23:27 Wound - Left Heel Gram Stain - Final 08/26/22 23:27 Wound - Left Heel Culture & Sensitivity - Final Pseudomonas Aeruginosa Staph Aureus 08/26/22 23:26 Wound - Right Heel Gram Stain - Final 08/26/22 23:26 Wound - Right Heel Culture & Sensitivity - Final Pseudomonas Aeruginosa Staph Aureus 08/26/22 19:07 Blood - Blood Aerobic Blood Culture - Final Staph Aureus 08/26/22 19:07 Blood - Blood Blood Culture Gram Stain - Final 08/26/22 19:07 Blood - Blood Anaerobic Blood Culture - Final Staph Aureus 08/26/22 19:07 Blood - Blood Gram Stain - Final 08/26/22 19:36 Blood - Blood Aerobic Blood Culture - Final Staph Aureus 08/26/22 19:36 Blood - Blood Blood Culture Gram Stain - Final 08/26/22 19:36 Blood - Blood Anaerobic Blood Culture - Final Staph Aureus 08/26/22 19:36 Blood - Blood Gram Stain - Final Assessment And Plan - Current Problems (Diagnosis) (1) Bacteremia Plan: Cultures: - 09/01 and 09/03 BC: Negative - 08/27 BC: Staph aureus, susceptible to Vancomycin and Levofloxacin - 08/26 BC: Staph aureus, susceptible to Vancomycin and Levofloxacin Antibiotics: - Current on IV Vancomycin for HD and Levaquin (09/04- ) Recommendations: - Continue IV Levaquin Q48H for total of 4 weeks duration from 09/01 (repeated BC negative) (2) Diabetic foot ulcers Plan: Cultures: - 08/26 Right heel: Staph aureus and Pseudomonas aeruginosa, susceptible to Vancomycin and Levofloxacin - 08/26 Left heel: Staph aureus and Pseudomonas aeruginosa, susceptible to Vancomycin and Levofloxacin Antibiotics: - Current on IV Vancomycin for HD and Levaquin (09/04- ) Recommendations: - Continue IV Levaquin Q48H for total of 4 weeks duration 08/30: Dr. Peterson had excisional debridement of right heel ulcer (3) Dry gangrene for RT 3rd finger Plan: Cultures: - 09/05 Right finger wound: Pending Antibiotics: - Current on IV Vancomycin for HD and Levaquin (09/04- ) Recommendations: - Continue IV Levaquin Q48H for total of 4 weeks duration 09/05: Dr. Hayes performed amputation of the right middle finger at the middle phalanx level with flap closure - Plan - Septic shock secondary to diabetic/pressure ulcerations bilateral heels: Continue antibiotics for total of 4 weeks - Dry gangrene of right middle finger s/p amputation (09/05) - NSTEMI with underlying CAD/recent heart cath with PCI - ESRD on HD MWF with noncompliance/hyperkalemia - Diabetes mellitus type 2insulin-dependent - Chronic diastolic congestive heart failure - Severe protein calorie malnutrition - Anemia of chronic disease - Hypertension - Hypothyroidism with thyroidectomy - hyperlipidemia - Depression - Paralyzed Stomach - Neuropathy - CAD - Back fusion - Bilateral total knee replacements - Cholecystectomy ID will monitor the patient closely for signs of infection with fever and WBC trends Case has been discussed with Dr. Leblanc N
[2022-09-06] MEDS: COLLAGENASE 30 GM OINTMENT TOP SCH (10:29)
--- NOTE | 2022-09-06 13:07 | PN ---
Date of Progress Note: 09/06/2022 Subjective: The patient was admitted with gangrenous finger, gastroparesis. The patient was started on antibiotics. The patient is status post finger amputation, tolerated. Physical Examination: Vital Signs: Blood pressure 97/50, pulse of 92. Chest: Clear to auscultation. Heart: S1, S2. Regular. Abdomen: Soft, nontender. No guarding. Extremities: Dressing on the foot, ulcer on the left foot also, and dressing on the mid right finger . Laboratory Data: Hemoglobin 8.3. Sodium 131, potassium 4, bicarb 27, BUN 48, creatinine 5.4, calciu m 9.1. Current Medications: The patient on include; 1.Levaquin. 2.Vancomycin. 3.Albuterol. 4.Atorvastatin. 5.Renvela. 6.Pepcid. 7.Levothyroxine. Assessment And Plan: 1.End-stage renal disease. We will continue the patient on dialysis. The patient due for dialysis today. 2.Anemia of chronic kidney disease. Continue XENIA. 3.Secondary hyperparathyroidism, stable. 4.Hyponatremia secondary to dilutional secondary to renal failure. Will be corrected with dialysis. 5.Over volume, will be corrected with dialysis today. 6.Gastroparesis. Continue symptomatic treatment. JOSÉ MIGUEL/RENÉ Voice ID: [id number] Report ID: [id number]
[2022-09-06] MEDS: EPOETIN ALFA 10,000 UNIT/ML VIAL IV SCH (13:15)
[2022-09-06] MEDS: Levofloxacin 250mg IV 250 MG/50 ML BAG IV SCH (15:36)
--- NOTE | 2022-09-06 19:51 | P.PN ---
Subjective Date of Service: 09/06/22 Chief Complaint: Septic shock, hyperkalemia, ESRD No acute events overnight. She underwent right middle finger amputation yesterday, and is doing well. She states that her pain is well-controlled. Pending placement into [place]. Appreciate CM assistance. Review of Systems 10-point ROS is otherwise unremarkable Physical Examination - Vital Signs Temperature: 97.0 F Blood Pressure: 104/51 Pulse: 98 Respirations: 18 Pulse Ox (%): 93 Assessment And Plan - Plan - Physical Exam General: Alert, Oriented x3, No distress HEENT: Atraumatic, Sclerae nonicteric Neck: JVD distended Respiratory: Diminished, but clear to auscultation bilaterally, without wheezes, rhonchi, or rales Cardiovascular: Regular rate/rhythm, No murmurs, Edema (1+ BLE) Gastrointestinal: Normal bowel sounds, Soft, No tenderness Musculoskeletal: No clubbing Integumentary: No rashes, Pressure ulcer (bilateral heels), right middle finger covered in surgical dressing Neurological: Normal speech, Normal affect # Septic Shock likely secondary to Methicillin-Sensitive Staphyloccoccus Aureus and Pseudomonas Aeruginosa bilateral Diabetic/Pressure Heel Ulcers with Methicillin-Sensitive Staphyloccoccus Aureus Bacteremia She met sepsis criteria based on HR > 90 bpm, RR > 20 breaths/min, and WBC > 12,000 and the suspected source is soft tissue/skin infection with bacteremia. Severe sepsis is suspected due to concern for tissue hypoperfusion/organ dysfunction based on hypotension (SBP < 90), and lactic acid > 2 mmol/L. Septic shock is suspected due to 2 or more readings of SBP < 90 mmHg. - Infectious Diseases consulted and spoke with Dr. Leblanc - recommendations appreciated - Recommends LTAC with 4 weeks of vancomycin + levofloxacin - She stated that she would [facility] go to [facility] - appreciated CM assistance - General Surgery consulted - recommendations appreciated - S/P Excisional Debridement of right heel ulcer with Dr. Peterson - Transthoracic echocardiogram = "1. normal left ventricular ejection fraction 50-55% 2. mild mitral regurgitation 3. mild tricuspid regurgitation 4. moderate diastolic dysfunction 5. right ventricular systolic pressure is elevated 60-65 mmHg" - Transesophageal echocardiogram = "1. no valvular vegetation is seen 2. normal left ventricular ejection fraction 55-60% 3. mild mitral regurgitation 4. mild tricuspid regurgitation 5. mild diffuse aortic atherosclerosis" - Sepsis order set was initiated - Lactate trend: 3.6 -> 3.2 - Procalcitonin: 8.72 - Blood cultures drawn before antibiotics were given - 4/4 positive for MSSA - Wound cultures positive for MSSA and Pseudomonas Aeruginosa - Broad spectrum antibiotics started: Vancomycin + Levofloxacin - In regards to fluids: - 30 mL/kg of IV fluids was not administered due to response to lesser volume and concern for volume overload in ESRD - Chest x-ray = "mild right basilar opacities could reflect a mild developing pneumonia." - CT chest/abdomen/pelvis = "1. Mosaic lung attenuation which could indicate small airways disease or hypoventilation. No evidence of pneumonia. 2. No acute intra-abdominal abnormality." - Bilateral feet x-rays = "1. Suspected soft tissue defects overlying the plantar aspects of the bilateral calcanel with no acute osseous findings in the bilateral feet. 2. relative osteopenic appearance of the bones. Consider DEXA scan if not recently performed to evaluate and potentially treat osteoporosis/osteopenia." - Sepsis reassessment completed by Simon Bolaños NP on 08/27/2022 @ 01:00 AM # Non-ST Segment Elevation Myocardial Infarction # Coronary Artery Disease s/p PCI (08/11/2022) # Hypertension # Hyperlipidemia Recently underwent PCI to RCA on 08/11/2022. Plan was for staged PCI given advanced LAD disease. - Evaluation thus far: - EKG: without STEMI, trend - Serial troponin: 535.8 -> 519.5 -> 543.3 - Transthoracic echocardiogram = "1. normal left ventricular ejection fraction 50-55% 2. mild mitral regurgitation 3. mild tricuspid regurgitation 4. moderate diastolic dysfunction 5. right ventricular systolic pressure is elevated 60-65 mmHg" - Transesophageal echocardiogram = "1. no valvular vegetation is seen 2. normal left ventricular ejection fraction 55-60% 3. mild mitral regurgitation 4. mild tricuspid regurgitation 5. mild diffuse aortic atherosclerosis" - Management plan: - Consult Cardiology - recommendations appreciated - Continue home aspirin, clopidogrel, atorvastatin # Suspect Acute on Chronic Decompensated Congestive Heart Failure with Preserved Ejection Fraction due to Missed Dialysis sessions # Hypervolemia in End-Stage Renal Disease on intermittent Hemodialysis # Anemia of Chronic Kidney Disease Chest x-ray initially suggestive of pneumonia; however, CT chest argues against pneumonia. Suspect chest x-ray findings represent pulmonary edema. 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 Hayes - recommendations appreciated - S/P amputation of right middle finger this morning # Type II Diabetes Mellitus - Hgb A1c 5.2 % - difficult to interpret given anemia - Correction scale insulin # Hypothyroidism - Continue home levothyroxine # Microscopic Hematuria - Noted on UA - Follow-up with PCP No new changes today. Pending placement into [facility]. Abran An M.D.
[2022-09-06] MEDS: ATORVASTATIN 40 MG TAB PO SCH (20:01)
[2022-09-07] MEDS: HYDROCODONE/APAP 7.5/325 MG TAB PO PRN ×6 (00:01→23:58)
[2022-09-07] MEDS: LEVOTHYROXINE SOD 0.075 MG TAB PO SCH (06:01)
[2022-09-07] MEDS: INSULIN -REGULAR HUMAN 50 UNIT/0.5 ML ML SQ SCH ×4 (07:30→20:19)
[2022-09-07] MEDS: PROCHLORPERAZINE 5 MG TAB PO PRN (08:41)
[2022-09-07] MEDS: HEPARIN 5000 UNIT/ML 1 ML VIAL SQ SCH ×2 (08:42→20:19)
[2022-09-07] MEDS: AMINO ACIDS/PROTEIN HYDROLYS 30 ML LIQUID.PKT PO SCH ×2 (09:00→20:32)
--- NOTE | 2022-09-07 09:35 | DS ---
The patient's dressing was change. The amputation site healing well without infection, erythema, or tenderness. Bandage dressing applied. The patient discharged to long-term care facility for multipl e risk factors. GABRIEL/RENÉ Voice ID: [id number] Report ID: [id number]
[2022-09-07] MEDS: SEVELAMER CARBONATE 800 MG TABLET PO SCH ×3 (09:51→17:55)
[2022-09-07] MEDS: FOLIC ACID 1 MG TABLET PO SCH (09:51)
[2022-09-07] MEDS: CLOPIDOGREL 75 MG TABLET PO SCH (09:51)
[2022-09-07] MEDS: ASPIRIN EC 81 MG TAB PO SCH (09:51)
[2022-09-07] MEDS: COLLAGENASE 30 GM OINTMENT TOP SCH (09:52)
[2022-09-07] MEDS: VANCOMYCIN 1 GM in NA CHLORIDE 0.9% 250 ML IVPB SCH (10:30)
--- NOTE | 2022-09-07 10:44 | P.PN ---
Subjective Date of Service: 09/07/22 Chief Complaint: Septic shock, hyperkalemia, ESRD Patient lying in bed, with legs elevated, with no cardiopulmonary distress. Reported still has mild nausea feeling Physical Examination - Vital Signs Temperature: 97.5 F Blood Pressure: 108/59 Pulse: 100 Respirations: 19 Pulse Ox (%): 94 - Physical Exam General: Alert, In no apparent distress, Oriented x3 Respiratory: Clear to auscultation bilaterally Cardiovascular: No edema, Normal S1 S2 Gastrointestinal: Normal bowel sounds Musculoskeletal: Other (b/l heel diabetic ulcers and s/p right 3rd finger amputation) Integumentary: Skin lesion (multiple dried lesions in fingers and toes), Diabetic ulcer (b/l heel diabetic ulcers and s/p right 3rd finger amputation) Neurological: Normal speech, Normal tone, Normal affect, Other (neuropathy of all extremities) - Studies current medications Acetaminophen (Acetaminophen 500 Mg Tab) 500 mg PO Q4HP PRN PRN Reason: TEMP > 100' F Last Admin: 09/02/22 23:19 Dose: 500 mg Hydrocodone Bitart/Acetaminophen (Hydrocodone/Apap 7.5/325 Mg Tab) 1 tab PO Q4H PRN PRN Reason: Pain scale 8-10 (Severe) Last Admin: 09/07/22 05:08 Dose: 1 tab Albuterol Sulfate (Albuterol 2.5 Mg/3 Ml Neb Sonia) 2.5 mg NEB [id number] PRN PRN Reason: SHORTNESS OF BREATH Amino Acids (Amino Acids/Protein Hydrolys 30 Ml Liquid.Pkt) 30 ml PO BID [facility] Last Admin: 09/07/22 09:00 Dose: Not Given Aspirin (Aspirin Ec 81 Mg Tab) 81 mg PO DAILY [facility] Last Admin: 09/07/22 09:51 Dose: 81 mg Atorvastatin Calcium (Atorvastatin 40 Mg Tab) 40 mg PO BEDTIME [facility] Last Admin: 09/06/22 20:01 Dose: 40 mg Clopidogrel Bisulfate (Clopidogrel 75 Mg Tablet) 75 mg PO DAILY [facility] Last Admin: 09/07/22 09:51 Dose: 75 mg Collagenase (Collagenase 30 Gm Ointment) 1 appl TOP DAILY [facility] Last Admin: 09/07/22 09:52 Dose: 1 appl Epoetin Derrick (Epoetin Derrick 10,000 Unit/Ml Vial) 10,000 unit IV EVERY HD [facility] Last Admin: 09/06/22 13:15 Dose: 10,000 unit Folic Acid (Folic Acid 1 Mg Tablet) 1 mg PO DAILY [facility] Last Admin: 09/07/22 09:51 Dose: 1 mg Heparin Sodium (Porcine) (Heparin 5000 Unit/Ml 1 Ml Vial) 5,000 unit SQ Q12HR [facility] Last Admin: 09/07/22 08:42 Dose: 5,000 unit Heparin Sodium (Porcine) (Heparin 1,000 Unit/Ml Vial) 3,000 unit IV EVERY HD PRN PRN Reason: Prevent Lines Clotting Last Admin: 09/06/22 10:57 Dose: 3,000 unit Heparin Sodium (Porcine) (Heparin 1,000 Unit/Ml Vial) 6,000 unit IV EVERY HD PRN PRN Reason: FOR DIALYSIS [facility]HE[facility] CARE Last Admin: 09/06/22 14:02 Dose: 6,000 unit Vancomycin HCl 1 gm/ Sodium (Chloride) 250 mls @ 250 mls/hr IVPB AFTER EACH DIALYSIS [facility]; Protocol Last Admin: 09/07/22 10:30 Dose: 250 mls Sodium Chloride (Sodium Chloride) 250 mls @ 0 mls/hr IV .Q0M [facility] Levofloxacin/Dextrose (Levaquin 250mg/50 Ml Ivpb) 250 mg in 50 mls @ 50 mls/hr IV Q48H [facility] Stop: 09/29/22 17:01 Last Admin: 09/06/22 15:36 Dose: 50 mls Insulin Human Regular (Insulin -Regular Human 50 Unit/0.5 Ml Ml) 0 unit SQ ACHS [facility]; Protocol Last Admin: 09/07/22 07:30 Dose: Not Given Levothyroxine Sodium (Levothyroxine Sod 0.075 Mg Tab) 0.15 mg PO DAILYAC [facility] Last Admin: 09/07/22 06:01 Dose: 0.15 mg Ondansetron HCl (Ondansetron 4 Mg/2 Ml Vial) 4 mg IV Q6HP PRN PRN Reason: NAUSEA / VOMITING Last Admin: 09/06/22 09:11 Dose: 4 mg Prochlorperazine (Prochlorperazine 5 Mg Tab) 5 mg PO Q6H PRN PRN Reason: NAUSEA / VOMITING Last Admin: 09/07/22 08:41 Dose: 5 mg Sevelamer Carbonate (Sevelamer Carbonate 800 Mg Tablet) 2,400 mg PO TIDWM [facility] Last Admin: 09/07/22 09:51 Dose: 2,400 mg Sodium Chloride (Flush Normal Saline 10 Ml) 10 ml IV BID [facility] Last Admin: 09/07/22 09:51 Dose: 10 ml Microbiology Data (last 24 hrs): Microbiology 08/26/22 23:27 Wound - Left Heel Gram Stain - Final 08/26/22 23:27 Wound - Left Heel Culture & Sensitivity - Final Pseudomonas Aeruginosa Staph Aureus 08/26/22 23:26 Wound - Right Heel Gram Stain - Final 08/26/22 23:26 Wound - Right Heel Culture & Sensitivity - Final Pseudomonas Aeruginosa Staph Aureus 08/26/22 19:07 Blood - Blood Aerobic Blood Culture - Final Staph Aureus 08/26/22 19:07 Blood - Blood Blood Culture Gram Stain - Final 08/26/22 19:07 Blood - Blood Anaerobic Blood Culture - Final Staph Aureus 08/26/22 19:07 Blood - Blood Gram Stain - Final 08/26/22 19:36 Blood - Blood Aerobic Blood Culture - Final Staph Aureus 08/26/22 19:36 Blood - Blood Blood Culture Gram Stain - Final 08/26/22 19:36 Blood - Blood Anaerobic Blood Culture - Final Staph Aureus 08/26/22 19:36 Blood - Blood Gram Stain - Final Assessment And Plan - Current Problems (Diagnosis) (1) Bacteremia Plan: Cultures: - 09/01 and 09/03 BC: Negative - 08/27 BC: Staph aureus, susceptible to Vancomycin and Levofloxacin - 08/26 BC: Staph aureus, susceptible to Vancomycin and Levofloxacin Antibiotics: - Current on IV Vancomycin for HD and Levaquin (09/04- ) Recommendations: - Continue IV Levaquin Q48H for total of 4 weeks duration from 09/01 (repeated BC negative) (2) Diabetic foot ulcers Plan: Cultures: - 08/26 Right heel: Staph aureus and Pseudomonas aeruginosa, susceptible to Vancomycin and Levofloxacin - 08/26 Left heel: Staph aureus and Pseudomonas aeruginosa, susceptible to Vancomycin and Levofloxacin Antibiotics: - Current on IV Vancomycin for HD and Levaquin (09/04- ) Recommendations: - Continue IV Levaquin Q48H for total of 4 weeks duration - Hyperbaric oxygen therapy of heels and fingers - LTAC placement for aggressive antibiotics management 08/30: Dr. Peterson had excisional debridement of right heel ulcer (3) Dry gangrene for RT 3rd finger Plan: Cultures: - 09/05 Right finger wound: No growth Antibiotics: - Current on IV Vancomycin for HD and Levaquin (09/04- ) Recommendations: - Continue IV Levaquin Q48H for total of 4 weeks duration - Hyperbaric oxygen therapy of heels and fingers - LTAC placement for aggressive antibiotics management 09/05: Dr. Hayes performed amputation of the right middle finger at the middle phalanx level with flap closure - Plan - Septic shock secondary to diabetic/pressure ulcerations bilateral heels: Continue antibiotics for total of 4 weeks - Dry gangrene of right middle finger s/p amputation (09/05) - NSTEMI with underlying CAD/recent heart cath with PCI - ESRD on HD MWF with noncompliance/hyperkalemia - Diabetes mellitus type 2insulin-dependent - Chronic diastolic congestive heart failure - Severe protein calorie malnutrition - Anemia of chronic disease - Hypertension - Hypothyroidism with thyroidectomy - hyperlipidemia - Depression - Paralyzed Stomach - Neuropathy - CAD - Back fusion - Bilateral total knee replacements - Cholecystectomy ID will monitor the patient closely for signs of infection with fever and WBC trends Case has been discussed with Dr. Leblanc, N
[2022-09-07] MEDS ORDERED: ALBUTEROL 2.5 MG/3 ML NEB SOL NEB PRN (12:02)
--- NOTE | 2022-09-07 13:47 | PN ---
Date of Progress Note: 09/07/2022 Subjective: The patient was admitted with over volume and gangrenous finger. The patient is status post mid right finger amputation. Physical Examination: Vital Signs: Blood pressure 108/59, pulse of 100, afebrile. Chest: Clear to auscultation. Heart: S1, S2. Systolic murmur. Abdomen: Soft, nontender. Extremity: Dressing both feet and dressing on the right hand with mid finger amputation. Neurological: Alert, oriented x3. No focal. Laboratory Data: Hemoglobin 8.3. Sodium 131, potassium 4, bicarb 27, BUN 48, creatinine 5, calcium 9.1. Current Medications: The patient on; 1.Levaquin. 2.Vancomycin. 3.Plavix. 4.Epogen. 5.Atorvastatin. 6.Renvela. 7.Folic acid. Assessment And Plan: 1.End-stage renal disease. We will continue the patient on dialysis Sunday, Sunday, Sunday. 2.Secondary hyperparathyroidism, stable. Continue Renvela. 3.Over volume, currently normal volume, back to dialysis 3 times a week. 4.Hyponatremia, will be corrected with dialysis. 5.Anemia of chronic kidney disease. We will continue XENIA. CR Voice ID: [id number] Report ID: [id number]
--- NOTE | 2022-09-07 17:34 | P.PN ---
Subjective Date of Service: 09/07/22 Chief Complaint: Septic shock, hyperkalemia, ESRD No acute events overnight. She is doing well, and reports that her pain is well- controlled. Appreciate CM assistance with placement. Review of Systems 10-point ROS is otherwise unremarkable Musculoskeletal: Foot Pain (minimal, right heel) Physical Examination - Vital Signs Temperature: 97.2 F Blood Pressure: 146/70 Pulse: 99 Respirations: 19 Pulse Ox (%): 95 Assessment And Plan - Plan - Physical Exam General: Alert, Oriented x3, No distress HEENT: Atraumatic, Sclerae nonicteric Neck: JVD distended Respiratory: Diminished, but clear to auscultation bilaterally, without wheezes, rhonchi, or rales Cardiovascular: Regular rate/rhythm, No murmurs, Edema (1+ BLE) Gastrointestinal: Normal bowel sounds, Soft, No tenderness Musculoskeletal: No clubbing Integumentary: No rashes, Pressure ulcer (bilateral heels), right middle finger covered in surgical dressing Neurological: Normal speech, Normal affect # Septic Shock likely secondary to Methicillin-Sensitive Staphyloccoccus Aureus and Pseudomonas Aeruginosa bilateral Diabetic/Pressure Heel Ulcers with Methicillin-Sensitive Staphyloccoccus Aureus Bacteremia She met sepsis criteria based on HR > 90 bpm, RR > 20 breaths/min, and WBC > 12,000 and the suspected source is soft tissue/skin infection with bacteremia. Severe sepsis is suspected due to concern for tissue hypoperfusion/organ dysfunction based on hypotension (SBP < 90), and lactic acid > 2 mmol/L. Septic shock is suspected due to 2 or more readings of SBP < 90 mmHg. - Infectious Diseases consulted and spoke with Dr. Leblanc - recommendations appreciated - Recommends LTAC with 4 weeks of vancomycin + levofloxacin - She stated that she would rather go to [facility] - appreciated CM assistance - General Surgery consulted - recommendations appreciated - S/P Excisional Debridement of right heel ulcer with Dr. Peterson - Transthoracic echocardiogram = "1. normal left ventricular ejection fraction 50-55% 2. mild mitral regurgitation 3. mild tricuspid regurgitation 4. moderate diastolic dysfunction 5. right ventricular systolic pressure is elevated 60-65 mmHg" - Transesophageal echocardiogram = "1. no valvular vegetation is seen 2. normal left ventricular ejection fraction 55-60% 3. mild mitral regurgitation 4. mild tricuspid regurgitation 5. mild diffuse aortic atherosclerosis" - Sepsis order set was initiated - Lactate trend: 3.6 -> 3.2 - Procalcitonin: 8.72 - Blood cultures drawn before antibiotics were given - 4/4 positive for MSSA - Wound cultures positive for MSSA and Pseudomonas Aeruginosa - Broad spectrum antibiotics started: Vancomycin + Levofloxacin - In regards to fluids: - 30 mL/kg of IV fluids was not administered due to response to lesser volume and concern for volume overload in ESRD - Chest x-ray = "mild right basilar opacities could reflect a mild developing pneumonia." - CT chest/abdomen/pelvis = "1. Mosaic lung attenuation which could indicate small airways disease or hypoventilation. No evidence of pneumonia. 2. No acute intra-abdominal abnormality." - Bilateral feet x-rays = "1. Suspected soft tissue defects overlying the plantar aspects of the bilateral calcanel with no acute osseous findings in the bilateral feet. 2. relative osteopenic appearance of the bones. Consider DEXA scan if not recently performed to evaluate and potentially treat osteoporosis/osteopenia." - Sepsis reassessment completed by Simon Bolaños NP on 08/27/2022 @ 01:00 AM # Non-ST Segment Elevation Myocardial Infarction # Coronary Artery Disease s/p PCI (08/11/2022) # Hypertension # Hyperlipidemia Recently underwent PCI to RCA on 08/11/2022. Plan was for staged PCI given advanced LAD disease. - Evaluation thus far: - EKG: without STEMI, trend - Serial troponin: 535.8 -> 519.5 -> 543.3 - Transthoracic echocardiogram = "1. normal left ventricular ejection fraction 50-55% 2. mild mitral regurgitation 3. mild tricuspid regurgitation 4. moderate diastolic dysfunction 5. right ventricular systolic pressure is elevated 60-65 mmHg" - Transesophageal echocardiogram = "1. no valvular vegetation is seen 2. normal left ventricular ejection fraction 55-60% 3. mild mitral regurgitation 4. mild tricuspid regurgitation 5. mild diffuse aortic atherosclerosis" - Management plan: - Consult Cardiology - recommendations appreciated - Continue home aspirin, clopidogrel, atorvastatin # Suspect Acute on Chronic Decompensated Congestive Heart Failure with Preserved Ejection Fraction due to Missed Dialysis sessions # Hypervolemia in End-Stage Renal Disease on intermittent Hemodialysis # Anemia of Chronic Kidney Disease Chest x-ray initially suggestive of pneumonia; however, CT chest argues against pneumonia. Suspect chest x-ray findings represent pulmonary edema. 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 Hayes - recommendations appreciated - S/P amputation of right middle finger this morning # Type II Diabetes Mellitus - Hgb A1c 5.2 % - difficult to interpret given anemia - Correction scale insulin # Hypothyroidism - Continue home levothyroxine # Microscopic Hematuria - Noted on UA - Follow-up with PCP At 14:22, I completed [id number] with Dr. Alcantara, who declined her for SNF. She recommended that she be admitted to LTAC. At 15:31, I completed [id number] with Dr. Mckee, who declined her for LTAC. He recommended that she be admitted to SNF. At 15:54, I spoke with Sara BARRIOS), who will re-apply for SNF. Abran An M.D.
[2022-09-07] MEDS: ATORVASTATIN 40 MG TAB PO SCH (20:18)
[2022-09-08] MEDS: HYDROCODONE/APAP 7.5/325 MG TAB PO PRN ×4 (04:31→21:46)
[2022-09-08] MEDS: LEVOTHYROXINE SOD 0.075 MG TAB PO SCH (06:15)
[2022-09-08 06:40] LABS: Absolute Lymphocytes (CBC) 0.6 K/uL (0.7-4.9); Hematocrit 26.7 % (36.0-45.0); Lymphocytes % 5.2 % (15.3-44.8); MCV 86.5 fL (80-100); MPV 6.6 fL (7.6-11.3); RBC Red Blood Cell Count 3.09 M/uL (3.86-4.86)
[2022-09-08 06:57] LABS: Potassium 4.1 mmol/L (3.5-5.1)
[2022-09-08] MEDS: INSULIN -REGULAR HUMAN 50 UNIT/0.5 ML ML SQ SCH ×4 (07:30→21:00)
[2022-09-08] MEDS: AMINO ACIDS/PROTEIN HYDROLYS 30 ML LIQUID.PKT PO SCH (08:27)
[2022-09-08] MEDS: HEPARIN 5000 UNIT/ML 1 ML VIAL SQ SCH (08:28)
[2022-09-08] MEDS: FOLIC ACID 1 MG TABLET PO SCH (08:28)
[2022-09-08] MEDS: SEVELAMER CARBONATE 800 MG TABLET PO SCH ×3 (08:28→17:46)
[2022-09-08] MEDS: ASPIRIN EC 81 MG TAB PO SCH (08:28)
[2022-09-08] MEDS: COLLAGENASE 30 GM OINTMENT TOP SCH (08:29)
[2022-09-08] MEDS: CLOPIDOGREL 75 MG TABLET PO SCH (08:29)
--- NOTE | 2022-09-08 19:13 | P.PN ---
Subjective Date of Service: 09/08/22 Chief Complaint: Septic shock, hyperkalemia, ESRD No acute events overnight. She is doing well, and reports that her pain is well- controlled. No new changes today. Waiting for insurance approval for placement. Review of Systems 10-point ROS is otherwise unremarkable Physical Examination - Vital Signs Temperature: 97 F Blood Pressure: 116/58 Pulse: 98 Respirations: 19 Pulse Ox (%): 100 Assessment And Plan - Plan - Physical Exam General: Alert, Oriented x3, No distress HEENT: Atraumatic, Sclerae nonicteric Neck: JVD distended Respiratory: Diminished, but clear to auscultation bilaterally, without wheezes, rhonchi, or rales Cardiovascular: Regular rate/rhythm, No murmurs, Edema (1+ BLE) Gastrointestinal: Normal bowel sounds, Soft, No tenderness Musculoskeletal: No clubbing Integumentary: No rashes, Pressure ulcer (bilateral heels), right middle finger covered in surgical dressing Neurological: Normal speech, Normal affect # Septic Shock likely secondary to Methicillin-Sensitive Staphyloccoccus Aureus and Pseudomonas Aeruginosa bilateral Diabetic/Pressure Heel Ulcers with Methicillin-Sensitive Staphyloccoccus Aureus Bacteremia She met sepsis criteria based on HR > 90 bpm, RR > 20 breaths/min, and WBC > 12,000 and the suspected source is soft tissue/skin infection with bacteremia. Severe sepsis is suspected due to concern for tissue hypoperfusion/organ dysfunction based on hypotension (SBP < 90), and lactic acid > 2 mmol/L. Septic shock is suspected due to 2 or more readings of SBP < 90 mmHg. - Infectious Diseases consulted and spoke with Dr. Leblanc - recommendations appreciated - Recommends LTAC with 4 weeks of vancomycin + levofloxacin - She stated that she would rather go to [facility] - appreciated assistance - General Surgery consulted - recommendations appreciated - S/P Excisional Debridement of right heel ulcer with Dr. Peterson - Transthoracic echocardiogram = "1. normal left ventricular ejection fraction 50-55% 2. mild mitral regurgitation 3. mild tricuspid regurgitation 4. moderate diastolic dysfunction 5. right ventricular systolic pressure is elevated 60-65 mmHg" - Transesophageal echocardiogram = "1. no valvular vegetation is seen 2. normal left ventricular ejection fraction 55-60% 3. mild mitral regurgitation 4. mild tricuspid regurgitation 5. mild diffuse aortic atherosclerosis" - Sepsis order set was initiated - Lactate trend: 3.6 -> 3.2 - Procalcitonin: 8.72 - Blood cultures drawn before antibiotics were given - 4/4 positive for MSSA - Wound cultures positive for MSSA and Pseudomonas Aeruginosa - Broad spectrum antibiotics started: Vancomycin + Levofloxacin - In regards to fluids: - 30 mL/kg of IV fluids was not administered due to response to lesser volume and concern for volume overload in ESRD - Chest x-ray = "mild right basilar opacities could reflect a mild developing pneumonia." - CT chest/abdomen/pelvis = "1. Mosaic lung attenuation which could indicate small airways disease or hypoventilation. No evidence of pneumonia. 2. No acute intra-abdominal abnormality." - Bilateral feet x-rays = "1. Suspected soft tissue defects overlying the plantar aspects of the bilateral calcanel with no acute osseous findings in the bilateral feet. 2. relative osteopenic appearance of the bones. Consider DEXA scan if not recently performed to evaluate and potentially treat osteoporosis/osteopenia." - Sepsis reassessment completed by Simon Bolaños NP on 08/27/2022 @ 01:00 AM # Non-ST Segment Elevation Myocardial Infarction # Coronary Artery Disease s/p PCI (08/11/2022) # Hypertension # Hyperlipidemia Recently underwent PCI to RCA on 08/11/2022. Plan was for staged PCI given ad vanced LAD disease. - Evaluation thus far: - EKG: without STEMI, trend - Serial troponin: 535.8 -> 519.5 -> 543.3 - Transthoracic echocardiogram = "1. normal left ventricular ejection fraction 50-55% 2. mild mitral regurgitation 3. mild tricuspid regurgitation 4. moderate diastolic dysfunction 5. right ventricular systolic pressure is elevated 60-65 mmHg" - Transesophageal echocardiogram = "1. no valvular vegetation is seen 2. normal left ventricular ejection fraction 55-60% 3. mild mitral regurgitation 4. mild tricuspid regurgitation 5. mild diffuse aortic atherosclerosis" - Management plan: - Consult Cardiology - recommendations appreciated - Continue home aspirin, clopidogrel, atorvastatin # Suspect Acute on Chronic Decompensated Congestive Heart Failure with Preserved Ejection Fraction due to Missed Dialysis sessions # Hypervolemia in End-Stage Renal Disease on intermittent Hemodialysis # Anemia of Chronic Kidney Disease Chest x-ray initially suggestive of pneumonia; however, CT chest argues against pneumonia. Suspect chest x-ray findings represent pulmonary edema. 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 Hayes - recommendations appreciated - S/P amputation of right middle finger this morning # Type II Diabetes Mellitus - Hgb A1c 5.2 % - difficult to interpret given anemia - Correction scale insulin # Hypothyroidism - Continue home levothyroxine # Microscopic Hematuria - Noted on UA - Follow-up with PCP 09/07/2022 At 14:22, I completed [id number] with Dr. Alcantara, who declined her for SNF. She recommended that she be admitted to LTAC. At 15:31, I completed [id number] with Dr. Mckee, who declined her for LTAC. He recommended that she be admitted to SNF. At 15:54, I spoke with Sara BARRIOS), who will re-apply for SNF. 09/08/2022 No new changes today. Waiting for decision from insurance. Abran An M.D.
[2022-09-08] MEDS: EPOETIN ALFA 10,000 UNIT/ML VIAL IV SCH (20:45)
[2022-09-08] MEDS: ENSURE MAX PROTEIN 330 ML LIQUID PO SCH (21:00)
[2022-09-08] MEDS: ATORVASTATIN 40 MG TAB PO SCH (21:46)
[2022-09-08] MEDS: ONDANSETRON 4 MG/2 ML VIAL IV PRN (21:47)
[2022-09-08] MEDS: Levofloxacin 250mg IV 250 MG/50 ML BAG IV SCH (21:47)
--- NOTE | 2022-09-08 22:17 | PN ---
Date of Progress Note: 09/08/2022 Chief Complaint: End-stage renal disease, on hemodialysis. Subjective: The patient has history of congestive heart failure with diastolic dysfunction and anasa rca. The patient was scheduled to have dialysis today. Ultrafiltration will be obtained to prevent fluid overload. Secondary hyperparathyroidism. Continue Renvela. Hyponatremia will be corrected with dialysis. Teodora downing electrolytes closely. EB/MODL Voice ID: [id number] Report ID: [id number]
[2022-09-09] MEDS: HYDROCODONE/APAP 7.5/325 MG TAB PO PRN ×4 (01:56→19:36)
[2022-09-09] MEDS: LEVOTHYROXINE SOD 0.075 MG TAB PO SCH (06:39)
[2022-09-09] MEDS: INSULIN -REGULAR HUMAN 50 UNIT/0.5 ML ML SQ SCH ×4 (07:30→21:00)
[2022-09-09] MEDS: ENSURE MAX PROTEIN 330 ML LIQUID PO SCH ×2 (09:00→21:00)
[2022-09-09] MEDS: CLOPIDOGREL 75 MG TABLET PO SCH (10:00)
[2022-09-09] MEDS: ASPIRIN EC 81 MG TAB PO SCH (10:00)
[2022-09-09] MEDS: SEVELAMER CARBONATE 800 MG TABLET PO SCH ×3 (10:01→16:45)
[2022-09-09] MEDS: FOLIC ACID 1 MG TABLET PO SCH (10:01)
[2022-09-09] MEDS: COLLAGENASE 30 GM OINTMENT TOP SCH (10:03)
--- NOTE | 2022-09-09 10:55 | PN ---
Date of Progress Note: 09/09/2022 Subjective: The patient has been admitted with over volume gangrenous on the finger status post amputation and foot infection status post debridement. The patient doing better. Physical Examination: Vital Signs: Blood pressure 105/56, pulse of 100, afebrile. General: The patient is status post dialysis yesterday. Chest: Clear to auscultation. Heart: S1, S2. Regular. Systolic murmur. Abdomen: Soft, nontender. Extremities: Dressing on both legs. Dressing on the right hand with middle toe amputation. Neurologic: Alert. No focality. Laboratory Data: Hemoglobin 8.7. Sodium 133, potassium 4.1, bicarb 25, BUN 45, creatinine 5.9, calcium 9.3. Current Medications: The patient on include Levaquin 250 every 48 hours, aspirin, vancomycin, Plavix, Epogen, Tylenol, atorvastatin, Renvela 2400 with each meal, lactulose, Zofran. Assessment And Plan: 1. End-stage renal disease. We will continue the patient on dialysis Sunday, Sunday, Sunday. 2. Hypertension, controlled, optimum. 3. Over volume status post dialysis and challenge, currently normal volume, back to dialysis 3 times a week. 4. Hyponatremia, corrected with dialysis. 5. Finger infection status post amputation and foot infection status post debridement. Continue current antibiotic. We will follow up with primary. 6. Diabetes, as by primary. 7. Gastroparesis. Continue symptomatic treatment. 8. Deconditioning. Continue physical therapy and occupational therapy. time spend exam the patient face to face reviewing data lab and radiology , placing order , discussing with the patient and nursing staff , discussing with hospitalist >35 min CR Voice ID: [id number] Report ID: [id number] ASHOK
--- NOTE | 2022-09-09 11:02 | P.PN ---
Subjective Date of Service: 09/09/22 Chief Complaint: Septic shock, hyperkalemia, ESRD No acute events overnight. She is doing well, she reports no concerns this morning. Waiting for insurance approval for placement. Review of Systems 10-point ROS is otherwise unremarkable Physical Examination - Vital Signs Temperature: 97.0 F Blood Pressure: 105/56 Pulse: 100 Respirations: 16 Pulse Ox (%): 97 Assessment And Plan - Plan - Physical Exam General: Alert, Oriented x3, No distress HEENT: Atraumatic, Sclerae nonicteric Neck: JVD distended Respiratory: Diminished, but clear to auscultation bilaterally, without wheezes, rhonchi, or rales Cardiovascular: Regular rate/rhythm, No murmurs, Edema (trace BLE) Gastrointestinal: Normal bowel sounds, Soft, No tenderness Musculoskeletal: No clubbing Integumentary: No rashes, Pressure ulcer (bilateral heels), right middle finger covered in surgical dressing Neurological: Normal speech, Normal affect # Septic Shock likely secondary to Methicillin-Sensitive Staphyloccoccus Aureus and Pseudomonas Aeruginosa bilateral Diabetic/Pressure Heel Ulcers with Methicillin-Sensitive Staphyloccoccus Aureus Bacteremia She met sepsis criteria based on HR > 90 bpm, RR > 20 breaths/min, and WBC > 12,000 and the suspected source is soft tissue/skin infection with bacteremia. Severe sepsis is suspected due to concern for tissue hypoperfusion/organ dysfunction based on hypotension (SBP < 90), and lactic acid > 2 mmol/L. Septic shock is suspected due to 2 or more readings of SBP < 90 mmHg. - Infectious Diseases consulted and spoke with Dr. Leblanc - recommendations appreciated - Recommends LTAC with 4 weeks of vancomycin + levofloxacin (end date: 09/29/2022) - She stated that she would rather go to [facility] - appreciated CM assistance - General Surgery consulted - recommendations appreciated - S/P Excisional Debridement of right heel ulcer with Dr. Peterson - Transthoracic echocardiogram = "1. normal left ventricular ejection fraction 50-55% 2. mild mitral regurgitation 3. mild tricuspid regurgitation 4. moderate diastolic dysfunction 5. right ventricular systolic pressure is elevated 60-65 mmHg" - Transesophageal echocardiogram = "1. no valvular vegetation is seen 2. normal left ventricular ejection fraction 55-60% 3. mild mitral regurgitation 4. mild tricuspid regurgitation 5. mild diffuse aortic atherosclerosis" - Sepsis order set was initiated - Lactate trend: 3.6 -> 3.2 - Procalcitonin: 8.72 - Blood cultures drawn before antibiotics were given - 4/4 positive for MSSA - Wound cultures positive for MSSA and Pseudomonas Aeruginosa - Broad spectrum antibiotics started: Vancomycin + Levofloxacin - In regards to fluids: - 30 mL/kg of IV fluids was not administered due to response to lesser volume and concern for volume overload in ESRD - Chest x-ray = "mild right basilar opacities could reflect a mild developing pneumonia." - CT chest/abdomen/pelvis = "1. Mosaic lung attenuation which could indicate small airways disease or hypoventilation. No evidence of pneumonia. 2. No acute intra-abdominal abnormality." - Bilateral feet x-rays = "1. Suspected soft tissue defects overlying the plantar aspects of the bilateral calcanel with no acute osseous findings in the bilateral feet. 2. relative osteopenic appearance of the bones. Consider DEXA scan if not recently performed to evaluate and potentially treat osteoporosis/osteopenia." - Sepsis reassessment completed by Simon Bolaños NP on 08/27/2022 @ 01:00 AM # Non-ST Segment Elevation Myocardial Infarction # Coronary Artery Disease s/p PCI (08/11/2022) # Hypertension # Hyperlipidemia Recently underwent PCI to RCA on 08/11/2022. Plan was for staged PCI given adva nced LAD disease. - Evaluation thus far: - EKG: without STEMI, trend - Serial troponin: 535.8 -> 519.5 -> 543.3 - Transthoracic echocardiogram = "1. normal left ventricular ejection fraction 50-55% 2. mild mitral regurgitation 3. mild tricuspid regurgitation 4. moderate diastolic dysfunction 5. right ventricular systolic pressure is elevated 60-65 mmHg" - Transesophageal echocardiogram = "1. no valvular vegetation is seen 2. normal left ventricular ejection fraction 55-60% 3. mild mitral regurgitation 4. mild tricuspid regurgitation 5. mild diffuse aortic atherosclerosis" - Management plan: - Consult Cardiology - recommendations appreciated - Continue home aspirin, clopidogrel, atorvastatin # Suspect Acute on Chronic Decompensated Congestive Heart Failure with Preserved Ejection Fraction due to Missed Dialysis sessions # Hypervolemia in End-Stage Renal Disease on intermittent Hemodialysis # Anemia of Chronic Kidney Disease Chest x-ray initially suggestive of pneumonia; however, CT chest argues against pneumonia. Suspect chest x-ray findings represent pulmonary edema. 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 Hayes - recommendations appreciated - S/P amputation of right middle finger on 09/05/2022 # Type II Diabetes Mellitus - Hgb A1c 5.2 % - difficult to interpret given anemia - Correction scale insulin # Hypothyroidism - Continue home levothyroxine # Microscopic Hematuria - Noted on UA - Follow-up with PCP 09/07/2022 At 14:22, I completed [id number] with Dr. Alcantara, who declined her for SNF. She recommended that she be admitted to LTAC. At 15:31, I completed [id number] with Dr. Mckee, who declined her for LTAC. He recommended that she be admitted to SNF. At 15:54, I spoke with Sara BARRIOS), who will re-apply for SNF. 09/08/2022 No new changes today. Waiting for decision from insurance. 09/09/2022 No new changes today. Waiting for decision from insurance. Unlikely to occur over the weekend. Abran An M.D.
[2022-09-09] MEDS: ONDANSETRON 4 MG/2 ML VIAL IV PRN ×2 (13:12→21:56)
[2022-09-09] MEDS ORDERED: POLYETHYL GLY 3350 17 GM/DOSE PO ONE (20:41)
[2022-09-09] MEDS: ATORVASTATIN 40 MG TAB PO SCH (21:47)
[2022-09-10] MEDS: HYDROCODONE/APAP 7.5/325 MG TAB PO PRN ×5 (00:31→21:06)
[2022-09-10 03:44] LABS: Absolute Lymphocytes (CBC) 0.9 K/uL (0.7-4.9); Hematocrit 29.6 % (36.0-45.0); Lymphocytes % 7.3 % (15.3-44.8); MCV 87.7 fL (80-100); MPV 6.9 fL (7.6-11.3); RBC Red Blood Cell Count 3.38 M/uL (3.86-4.86)
[2022-09-10 04:03] LABS: Potassium 4.3 mmol/L (3.5-5.1)
[2022-09-10] MEDS: LEVOTHYROXINE SOD 0.075 MG TAB PO SCH (06:30)
[2022-09-10] MEDS: INSULIN -REGULAR HUMAN 50 UNIT/0.5 ML ML SQ SCH ×4 (07:30→21:00)
[2022-09-10] MEDS: ENSURE MAX PROTEIN 330 ML LIQUID PO SCH ×2 (09:00→21:00)
[2022-09-10] MEDS: SEVELAMER CARBONATE 800 MG TABLET PO SCH ×3 (09:59→16:06)
[2022-09-10] MEDS: ASPIRIN EC 81 MG TAB PO SCH (10:00)
[2022-09-10] MEDS: FOLIC ACID 1 MG TABLET PO SCH (10:00)
[2022-09-10] MEDS: CLOPIDOGREL 75 MG TABLET PO SCH (10:00)
[2022-09-10] MEDS: COLLAGENASE 30 GM OINTMENT TOP SCH (10:01)
--- NOTE | 2022-09-10 11:58 | P.PN ---
Subjective Date of Service: 09/10/22 Chief Complaint: Septic shock, hyperkalemia, ESRD No acute events overnight. She denies any concerns this morning. Her pain is well-controlled. Waiting for insurance approval for placement. Review of Systems 10-point ROS is otherwise unremarkable General: Weakness (generalized) Physical Examination - Vital Signs Temperature: 96.9 F Blood Pressure: 135/67 Pulse: 96 Respirations: 16 Pulse Ox (%): 98 Assessment And Plan - Plan - Physical Exam General: Alert, Oriented x3, No distress HEENT: Atraumatic, Sclerae nonicteric Neck: JVD distended Respiratory: Diminished, but clear to auscultation bilaterally, without wheezes, rhonchi, or rales Cardiovascular: Regular rate/rhythm, No murmurs, Edema (trace BLE) Gastrointestinal: Normal bowel sounds, Soft, No tenderness Musculoskeletal: No clubbing Integumentary: No rashes, Pressure ulcer (bilateral heels), right middle finger covered in surgical dressing Neurological: Normal speech, Normal affect # Septic Shock likely secondary to Methicillin-Sensitive Staphyloccoccus Aureus and Pseudomonas Aeruginosa bilateral Diabetic/Pressure Heel Ulcers with Methicillin-Sensitive Staphyloccoccus Aureus Bacteremia She met sepsis criteria based on HR > 90 bpm, RR > 20 breaths/min, and WBC > 12,000 and the suspected source is soft tissue/skin infection with bacteremia. Severe sepsis is suspected due to concern for tissue hypoperfusion/organ dysfunction based on hypotension (SBP < 90), and lactic acid > 2 mmol/L. Septic shock is suspected due to 2 or more readings of SBP < 90 mmHg. - Infectious Diseases consulted and spoke with Dr. Leblanc - recommendations appreciated - Recommends LTAC with 4 weeks of vancomycin + levofloxacin (end date: ) - She stated that [place] [facility] [place] - appreciated CM assistance - General Surgery consulted - recommendations appreciated - S/P Excisional Debridement of right heel ulcer with Dr. Peterson - Transthoracic echocardiogram = "1. normal left ventricular ejection fraction 50-55% 2. mild mitral regurgitation 3. mild tricuspid regurgitation 4. moderate diastolic dysfunction 5. right ventricular systolic pressure is elevated 60-65 mmHg" - Transesophageal echocardiogram = "1. no valvular vegetation is seen 2. normal left ventricular ejection fraction 55-60% 3. mild mitral regurgitation 4. mild tricuspid regurgitation 5. mild diffuse aortic atherosclerosis" - Sepsis order set was initiated - Lactate trend: 3.6 -> 3.2 - Procalcitonin: 8.72 - Blood cultures drawn before antibiotics were given - 4/4 positive for MSSA - Wound cultures positive for MSSA and Pseudomonas Aeruginosa - Broad spectrum antibiotics started: Vancomycin + Levofloxacin - In regards to fluids: - 30 mL/kg of IV fluids was not administered due to response to lesser volume and concern for volume overload in ESRD - Chest x-ray = "mild right basilar opacities could reflect a mild developing pneumonia." - CT chest/abdomen/pelvis = "1. Mosaic lung attenuation which could indicate small airways disease or hypoventilation. No evidence of pneumonia. 2. No acute intra-abdominal abnormality." - Bilateral feet x-rays = "1. Suspected soft tissue defects overlying the plantar aspects of the bilateral calcanel with no acute osseous findings in the bilateral feet. 2. relative osteopenic appearance of the bones. Consider DEXA scan if not recently performed to evaluate and potentially treat osteoporosis/osteopenia." - Sepsis reassessment completed by Simon Bolaños NP on 08/27/2022 @ 01:00 AM # Non-ST Segment Elevation Myocardial Infarction # Coronary Artery Disease s/p PCI (08/11/2022) # Hypertension # Hyperlipidemia Recently underwent PCI to RCA on 08/11/2022. Plan was for staged PCI given advanced LAD disease. - Evaluation thus far: - EKG: without STEMI, trend - Serial troponin: 535.8 -> 519.5 -> 543.3 - Transthoracic echocardiogram = "1. normal left ventricular ejection fraction 50-55% 2. mild mitral regurgitation 3. mild tricuspid regurgitation 4. moderate diastolic dysfunction 5. right ventricular systolic pressure is elevated 60-65 mmHg" - Transesophageal echocardiogram = "1. no valvular vegetation is seen 2. normal left ventricular ejection fraction 55-60% 3. mild mitral regurgitation 4. mild tricuspid regurgitation 5. mild diffuse aortic atherosclerosis" - Management plan: - Consult Cardiology - recommendations appreciated - Continue home aspirin, clopidogrel, atorvastatin # Suspect Acute on Chronic Decompensated Congestive Heart Failure with Preserved Ejection Fraction due to Missed Dialysis sessions # Hypervolemia in End-Stage Renal Disease on intermittent Hemodialysis # Anemia of Chronic Kidney Disease Chest x-ray initially suggestive of pneumonia; however, CT chest argues against pneumonia. Suspect chest x-ray findings represent pulmonary edema. 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 Hayes - recommendations appreciated - S/P amputation of right middle finger on 09/05/2022 # Type II Diabetes Mellitus - Hgb A1c 5.2 % - difficult to interpret given anemia - Correction scale insulin # Hypothyroidism - Continue home levothyroxine # Microscopic Hematuria - Noted on UA - Follow-up with PCP 09/07/2022 At 14:22, I completed [id number] with Dr. Alcantara, who declined her for SNF. She recommended that she be admitted to LTAC. At 15:31, I completed [id number] with Dr. Mckee, who declined her for LTAC. He recommended that she be admitted to SNF. At 15:54, I spoke with Sara BARRIOS), who will re-apply for SNF. 09/08/2022 No new changes today. Waiting for decision from insurance. 09/09/2022 No new changes today. Waiting for decision from insurance. Unlikely to occur over the weekend. 09/10/2022 No new changes today. Waiting for decision from insurance. Unlikely to occur over the weekend. Abran An M.D.
--- NOTE | 2022-09-10 12:44 | PN ---
Date of Progress Note: 09/10/2022 Subjective: The patient was admitted with gangrenous finger, status post amputation. The patient hermosillo s gastroparesis, today tolerated her diet, tolerated her breakfast without any nausea, any vomiting. Physical Examination: Vital Signs: Blood pressure 135/67, pulse of 96, afebrile. Chest: Clear to auscultation. Heart: S1, S2. Regular. Systolic murmur. Abdomen: Soft, nontender. Extremities: Dressing on both feet and dressing on the right hand with middle finger amputation. Neurologic: Alert. No focality. Laboratory Data: Hemoglobin 9.5. Sodium 132, potassium 4.3, bicarb 22, BUN 40, creatinine 5.6, calc ium 9.1. Current Medications: The patient on include aspirin, vancomycin, Levaquin, albuterol, heparin, Epoge n, Plavix, atorvastatin, Tylenol, Zofran, folic acid. Assessment And Plan: 1.End-stage renal disease. I am going to continue the patient on dialysis Sunday, Sunday, Sunday as the patient is currently normal volume. 2.Hypertension, controlled, optimal. Continue current treatment. 3.Over volume, status post challenge, currently normal volume, back to dialysis 3 times a week. 4.Gastroparesis as by primary. 5.Gangrenous finger, status post amputation. Continue current antibiotic. We will follow up with vannessa garza. 6.Foot infection. Continue antibiotics. Status post debridement. Follow up with Surgery. 7.Diabetes as by primary. JOSÉ MIGUEL/RENÉ Voice ID: [id number] Report ID: [id number]
[2022-09-10] MEDS: Levofloxacin 250mg IV 250 MG/50 ML BAG IV SCH (16:06)
[2022-09-10] MEDS: ATORVASTATIN 40 MG TAB PO SCH (21:06)
[2022-09-10] MEDS: PROCHLORPERAZINE 5 MG TAB PO PRN (21:07)
[2022-09-11] MEDS: HYDROCODONE/APAP 7.5/325 MG TAB PO PRN ×5 (00:38→21:05)
[2022-09-11] MEDS: LEVOTHYROXINE SOD 0.075 MG TAB PO SCH (05:13)
[2022-09-11] MEDS: INSULIN -REGULAR HUMAN 50 UNIT/0.5 ML ML SQ SCH ×4 (07:30→21:00)
[2022-09-11] MEDS: ENSURE MAX PROTEIN 330 ML LIQUID PO SCH ×2 (09:00→21:00)
[2022-09-11] MEDS: SEVELAMER CARBONATE 800 MG TABLET PO SCH ×3 (09:09→17:00)
[2022-09-11] MEDS: ASPIRIN EC 81 MG TAB PO SCH (09:10)
[2022-09-11] MEDS: ONDANSETRON 4 MG/2 ML VIAL IV PRN (09:11)
[2022-09-11] MEDS: FOLIC ACID 1 MG TABLET PO SCH (09:11)
[2022-09-11] MEDS: CLOPIDOGREL 75 MG TABLET PO SCH (09:11)
[2022-09-11] MEDS: COLLAGENASE 30 GM OINTMENT TOP SCH (09:13)
--- NOTE | 2022-09-11 09:52 | P.PN ---
Subjective Date of Service: 09/11/22 Chief Complaint: Septic shock, hyperkalemia, ESRD Patient lying in bed, with legs elevated, with no cardiopulmonary distress. Reported still has mild nausea feeling, but better Physical Examination - Vital Signs Temperature: 97.6 F Blood Pressure: 118/56 Pulse: 88 Respirations: 14 Pulse Ox (%): 95 - Physical Exam General: Alert, In no apparent distress, Oriented x3 Respiratory: Clear to auscultation bilaterally Cardiovascular: No edema, Normal S1 S2 Gastrointestinal: Normal bowel sounds Musculoskeletal: Other (b/l heel diabetic ulcers and s/p right 3rd finger amputation) Integumentary: Skin lesion (multiple dried lesions in fingers and toes), Diabetic ulcer (b/l heel diabetic ulcers and s/p right 3rd finger amputation) Neurological: Normal speech, Normal tone, Normal affect, Abnormal sensation (neuropathy of all extremities) - Studies current medications Acetaminophen (Acetaminophen 500 Mg Tab) 500 mg PO Q4HP PRN PRN Reason: TEMP > 100' F Last Admin: 09/02/22 23:19 Dose: 500 mg Hydrocodone Bitart/Acetaminophen (Hydrocodone/Apap 7.5/325 Mg Tab) 1 tab PO Q4H PRN PRN Reason: Pain scale 8-10 (Severe) Last Admin: 09/11/22 09:10 Dose: 1 tab Albuterol Sulfate (Albuterol 2.5 Mg/3 Ml Neb Sonia) 2.5 mg NEB Q6HP PRN PRN Reason: SHORTNESS OF BREATH Aspirin (Aspirin Ec 81 Mg Tab) 81 mg PO DAILY [facility] Last Admin: 09/11/22 09:10 Dose: 81 mg Atorvastatin Calcium (Atorvastatin 40 Mg Tab) 40 mg PO BEDTIME [facility] Last Admin: 09/10/22 21:06 Dose: 40 mg Clopidogrel Bisulfate (Clopidogrel 75 Mg Tablet) 75 mg PO DAILY [facility] Last Admin: 09/11/22 09:11 Dose: 75 mg Collagenase (Collagenase 30 Gm Ointment) 1 appl TOP DAILY [facility] Last Admin: 09/11/22 09:13 Dose: 1 appl Epoetin Derrick (Epoetin Derrick 10,000 Unit/Ml Vial) 10,000 unit IV EVERY HD [facility] Last Admin: 09/08/22 20:45 Dose: 10,000 unit Folic Acid (Folic Acid 1 Mg Tablet) 1 mg PO DAILY [facility] Last Admin: 09/11/22 09:11 Dose: 1 mg Heparin Sodium (Porcine) (Heparin 1,000 Unit/Ml Vial) 6,000 unit IV EVERY HD PRN PRN Reason: FOR DIALYSIS CATHETER CARE Last Admin: 09/08/22 21:02 Dose: 6,000 unit Vancomycin HCl 1 gm/ Sodium (Chloride) 250 mls @ 250 mls/hr IVPB AFTER EACH DIALYSIS [facility]; Protocol Last Admin: 09/07/22 10:30 Dose: 250 mls Sodium Chloride (Sodium Chloride) 250 mls @ 0 mls/hr IV .Q0M OLIVA Levofloxacin/Dextrose (Levaquin 250mg/50 Ml Ivpb) 250 mg in 50 mls @ 50 mls/hr IV Q48H [facility] Stop: 09/29/22 17:01 Last Admin: 09/10/22 16:06 Dose: 50 mls Insulin Human Regular (Insulin -Regular Human 50 Unit/0.5 Ml Ml) 0 unit SQ ACHS [facility]; Protocol Last Admin: 09/11/22 07:30 Dose: Not Given Levothyroxine Sodium (Levothyroxine Sod 0.075 Mg Tab) 0.15 mg PO DAILYAC [facility] Last Admin: 09/11/22 05:13 Dose: 0.15 mg Ondansetron HCl (Ondansetron 4 Mg/2 Ml Vial) 4 mg IV Q6HP PRN PRN Reason: NAUSEA / VOMITING Last Admin: 09/11/22 09:11 Dose: 4 mg Prochlorperazine (Prochlorperazine 5 Mg Tab) 5 mg PO Q6H PRN PRN Reason: NAUSEA / VOMITING Last Admin: 09/10/22 21:07 Dose: 5 mg Sevelamer Carbonate (Sevelamer Carbonate 800 Mg Tablet) 2,400 mg PO TIDWM [facility] Last Admin: 09/11/22 09:09 Dose: 2,400 mg Sodium Chloride (Flush Normal Saline 10 Ml) 10 ml IV BID [facility] Last Admin: 09/11/22 09:00 Dose: 10 ml Microbiology Data (last 24 hrs): Microbiology 08/26/22 23:27 Wound - Left Heel Gram Stain - Final 08/26/22 23:27 Wound - Left Heel Culture & Sensitivity - Final Pseudomonas Aeruginosa Staph Aureus 08/26/22 23:26 Wound - Right Heel Gram Stain - Final 08/26/22 23:26 Wound - Right Heel Culture & Sensitivity - Final Pseudomonas Aeruginosa Staph Aureus 02/18/23 19:07 Blood - Blood Aerobic Blood Culture - Final Staph Aureus 08/26/22 19:07 Blood - Blood Blood Culture Gram Stain - Final 08/26/22 19:07 Blood - Blood Anaerobic Blood Culture - Final Staph Aureus 08/26/22 19:07 Blood - Blood Gram Stain - Final 08/26/22 19:36 Blood - Blood Aerobic Blood Culture - Final Staph Aureus 08/26/22 19:36 Blood - Blood Blood Culture Gram Stain - Final 08/26/22 19:36 Blood - Blood Anaerobic Blood Culture - Final Staph Aureus 08/26/22 19:36 Blood - Blood Gram Stain - Final Assessment And Plan - Current Problems (Diagnosis) (1) Bacteremia Plan: Cultures: - 09/01 and 09/03 BC: Negative - 08/27 BC: Staph aureus, susceptible to Vancomycin and Levofloxacin - 08/26 BC: Staph aureus, susceptible to Vancomycin and Levofloxacin Antibiotics: - Current on IV Vancomycin for HD and Levaquin (09/04- ) Recommendations: - Continue IV Levaquin Q48H for total of 4 weeks duration from 09/01 (repeated BC negative) (2) Diabetic foot ulcers Plan: Cultures: - 08/26 Right heel: Staph aureus and Pseudomonas aeruginosa, susceptible to Vancomycin and Levofloxacin - 08/26 Left heel: Staph aureus and Pseudomonas aeruginosa, susceptible to Vancomycin and Levofloxacin Antibiotics: - Current on IV Vancomycin for HD and Levaquin (09/04- ) Recommendations: - Continue IV Levaquin Q48H for total of 4 weeks duration - Hyperbaric oxygen therapy of heels and fingers - LTAC placement for aggressive antibiotics management 08/30: Dr. Peetrson had excisional debridement of right heel ulcer (3) Dry gangrene for RT 3rd finger Plan: Cultures: - 09/05 Right finger wound: No growth Antibiotics: - Current on IV Vancomycin for HD and Levaquin (09/04- ) Recommendations: - Continue IV Levaquin Q48H for total of 4 weeks duration - Hyperbaric oxygen therapy of heels and fingers - LTAC placement for aggressive antibiotics management 09/05: Dr. Hayes performed amputation of the right middle finger at the middle phalanx level with flap closure - Plan - Septic shock secondary to diabetic/pressure ulcerations bilateral heels: Continue antibiotics for total of 4 weeks - Dry gangrene of right middle finger s/p amputation (09/05) - NSTEMI with underlying CAD/recent heart cath with PCI - ESRD on HD MWF with noncompliance/hyperkalemia - Diabetes mellitus type 2insulin-dependent - Chronic diastolic congestive heart failure - Severe protein calorie malnutrition - Anemia of chronic disease - Hypertension - Hypothyroidism with thyroidectomy - hyperlipidemia - Depression - Paralyzed Stomach - Neuropathy - CAD - Back fusion - Bilateral total knee replacements - Cholecystectomy ID will monitor the patient closely for signs of infection with fever and WBC trends Case has been discussed with Dr. Leblanc, N
[2022-09-11] MEDS: EPOETIN ALFA 10,000 UNIT/ML VIAL IV SCH (13:00)
[2022-09-11] MEDS ORDERED: ALBUTEROL 2.5 MG/3 ML NEB SOL NEB PRN (15:00)
[2022-09-11] MEDS: VANCOMYCIN 1 GM in NA CHLORIDE 0.9% 250 ML IVPB SCH (15:48)
[2022-09-11] MEDS: ATORVASTATIN 40 MG TAB PO SCH (21:05)
--- NOTE | 2022-09-12 01:45 | PN ---
Date of Progress Note: 09/11/2022 Chief Complaint: End-stage renal disease, peripheral vascular disease, foot infection. The patient underwent debridement. The patient has diabetic foot infection. She is on multiple antibiotics. Charley spears developed some nausea, vomiting due to gastroparesis. Today, she is feeling better. Review of Systems: Denies PND, orthopnea. Physical Examination: Lungs: Clear to auscultation bilaterally. Heart: S1, S2. Abdomen: Soft, benign. Extremities: Dressing in place. Impression And Plan: 1.End-stage renal disease. Dialysis will be done today with ultrafiltration. 2.Hypervolemia, anasarca improving. The patient is tolerating ultrafiltration, monitor blood pressu re closely. 3.Gastroparesis, per primary team. 4.Diabetic foot infection. Continue treatment with antibiotics and wound care. 5.Diabetes mellitus on insulin per primary team. 6.Anemia of chronic kidney disease, continue XENIA. Hemoglobin level 9.5. Continue current treatment . FREDDY/RENÉ Voice ID: [id number] Report ID: [id number]
[2022-09-12] MEDS: HYDROCODONE/APAP 7.5/325 MG TAB PO PRN ×5 (02:09→21:10)
[2022-09-12] MEDS: LEVOTHYROXINE SOD 0.075 MG TAB PO SCH (06:38)
[2022-09-12] MEDS: INSULIN -REGULAR HUMAN 50 UNIT/0.5 ML ML SQ SCH ×4 (07:30→21:00)
[2022-09-12 07:45] LABS: Absolute Lymphocytes (CBC) 0.7 K/uL (0.7-4.9); Hematocrit 28.6 % (36.0-45.0); Lymphocytes % 9.1 % (15.3-44.8); MCV 86.8 fL (80-100); MPV 6.4 fL (7.6-11.3)
[2022-09-12 08:20] LABS: Albumin 2.2 g/dL (3.4-5.0); Bilirubin Total 0.6 mg/dL (0.2-1.0); Potassium 4.1 mmol/L (3.5-5.1); Protein, Total 7.4 g/dL (6.4-8.2)
[2022-09-12] MEDS: FOLIC ACID 1 MG TABLET PO SCH (08:52)
[2022-09-12] MEDS: SEVELAMER CARBONATE 800 MG TABLET PO SCH ×3 (08:52→16:15)
[2022-09-12] MEDS: CLOPIDOGREL 75 MG TABLET PO SCH (08:52)
[2022-09-12] MEDS: ASPIRIN EC 81 MG TAB PO SCH (08:52)
[2022-09-12] MEDS: ENSURE MAX PROTEIN 330 ML LIQUID PO SCH ×2 (08:52→21:00)
--- NOTE | 2022-09-12 08:52 | P.PN ---
Subjective Date of Service: 09/12/22 Chief Complaint: Septic shock, hyperkalemia, ESRD Patient lying in bed, with legs elevated, with no cardiopulmonary distress Physical Examination - Vital Signs Temperature: 96.9 F Blood Pressure: 112/59 Pulse: 94 Respirations: 18 Pulse Ox (%): 97 - Physical Exam General: Alert, In no apparent distress, Oriented x3 Respiratory: Normal air movement Cardiovascular: No edema, Normal S1 S2 Gastrointestinal: Normal bowel sounds Musculoskeletal: Other (b/l heel diabetic ulcers and s/p right 3rd finger amputation) Integumentary: Skin lesion (multiple dried lesions in fingers and toes), Diabetic ulcer (b/l heel diabetic ulcers and s/p right 3rd finger amputation) Neurological: Normal speech, Normal tone, Normal affect, Abnormal sensation (neuropathy of all extremities) - Studies active medications Acetaminophen (Acetaminophen 500 Mg Tab) 500 mg PO Q4HP PRN PRN Reason: TEMP > 100' F Last Admin: 09/02/22 23:19 Dose: 500 mg Hydrocodone Bitart/Acetaminophen (Hydrocodone/Apap 7.5/325 Mg Tab) 1 tab PO Q4H PRN PRN Reason: Pain scale 8-10 (Severe) Last Admin: 09/12/22 06:40 Dose: 1 tab Albuterol Sulfate (Albuterol 2.5 Mg/3 Ml Neb Sonia) 2.5 mg NEB [id number] PRN PRN Reason: SHORTNESS OF BREATH Aspirin (Aspirin Ec 81 Mg Tab) 81 mg PO DAILY [facility] Last Admin: 09/11/22 09:10 Dose: 81 mg Atorvastatin Calcium (Atorvastatin 40 Mg Tab) 40 mg PO BEDTIME [facility] Last Admin: 09/11/22 21:05 Dose: 40 mg Clopidogrel Bisulfate (Clopidogrel 75 Mg Tablet) 75 mg PO DAILY [facility] Last Admin: 09/11/22 09:11 Dose: 75 mg Collagenase (Collagenase 30 Gm Ointment) 1 appl TOP DAILY [facility] Last Admin: 09/11/22 09:13 Dose: 1 appl Epoetin Derrick (Epoetin Derrick 10,000 Unit/Ml Vial) 10,000 unit IV EVERY HD [facility] Last Admin: 09/11/22 13:00 Dose: 10,000 unit Folic Acid (Folic Acid 1 Mg Tablet) 1 mg PO DAILY [facility] Last Admin: 09/11/22 09:11 Dose: 1 mg Heparin Sodium (Porcine) (Heparin 1,000 Unit/Ml Vial) 6,000 unit IV EVERY HD PRN PRN Reason: FOR DIALYSIS CATHETER CARE Last Admin: 09/11/22 14:02 Dose: 6,000 unit Heparin Sodium (Porcine) (Heparin 1,000 Unit/Ml Vial) 3,000 unit IV EVERY HD PRN PRN Reason: Prevent Lines Clotting Last Admin: 09/11/22 10:57 Dose: 3,000 unit Vancomycin HCl 1 gm/ Sodium (Chloride) 250 mls @ 250 mls/hr IVPB AFTER EACH DIALYSIS [facility]; Protocol Last Admin: 09/11/22 15:48 Dose: 250 mls Sodium Chloride (Sodium Chloride) 250 mls @ 0 mls/hr IV .Q0M [facility] Levofloxacin/Dextrose (Levaquin 250mg/50 Ml Ivpb) 250 mg in 50 mls @ 50 mls/hr IV Q48H [facility] Stop: 09/29/22 17:01 Last Admin: 09/10/22 16:06 Dose: 50 mls Insulin Human Regular (Insulin -Regular Human 50 Unit/0.5 Ml Ml) 0 unit SQ ACHS [facility]; Protocol Last Admin: 09/11/22 21:00 Dose: Not Given Levothyroxine Sodium (Levothyroxine Sod 0.075 Mg Tab) 0.15 mg PO DAILYAC [facility] Last Admin: 09/12/22 06:38 Dose: 0.15 mg Ondansetron HCl (Ondansetron 4 Mg/2 Ml Vial) 4 mg IV Q6HP PRN PRN Reason: NAUSEA / VOMITING Last Admin: 09/11/22 09:11 Dose: 4 mg Prochlorperazine (Prochlorperazine 5 Mg Tab) 5 mg PO Q6H PRN PRN Reason: NAUSEA / VOMITING Last Admin: 09/10/22 21:07 Dose: 5 mg Sevelamer Carbonate (Sevelamer Carbonate 800 Mg Tablet) 2,400 mg PO TIDWM [facility] Last Admin: 09/11/22 17:00 Dose: Not Given Sodium Chloride (Flush Normal Saline 10 Ml) 10 ml IV BID [facility] Last Admin: 09/11/22 21:06 Dose: 10 ml Microbiology Data (last 24 hrs): Microbiology 08/26/22 23:27 Wound - Left Heel Gram Stain - Final 08/26/22 23:27 Wound - Left Heel Culture & Sensitivity - Final Pseudomonas Aeruginosa Staph Aureus 08/26/22 23:26 Wound - Right Heel Gram Stain - Final 08/26/22 23:26 Wound - Right Heel Culture & Sensitivity - Final Pseudomonas Aeruginosa Staph Aureus 08/26/22 19:07 Blood - Blood Aerobic Blood Culture - Final Staph Aureus 08/26/22 19:07 Blood - Blood Blood Culture Gram Stain - Final 08/26/22 19:07 Blood - Blood Anaerobic Blood Culture - Final Staph Aureus 08/26/22 19:07 Blood - Blood Gram Stain - Final 08/26/22 19:36 Blood - Blood Aerobic Blood Culture - Final Staph Aureus 08/26/22 19:36 Blood - Blood Blood Culture Gram Stain - Final 08/26/22 19:36 Blood - Blood Anaerobic Blood Culture - Final Staph Aureus 08/26/22 19:36 Blood - Blood Gram Stain - Final Assessment And Plan - Current Problems (Diagnosis) (1) Bacteremia Plan: Cultures: - 09/01 and 09/03 BC: Negative - 08/27 BC: Staph aureus, susceptible to Vancomycin and Levofloxacin - 08/26 BC: Staph aureus, susceptible to Vancomycin and Levofloxacin Antibiotics: - Current on IV Vancomycin for HD and Levaquin (09/04- ) Recommendations: - Continue IV Levaquin Q48H for total of 4 weeks duration from 09/01 (repeated BC negative) (2) Diabetic foot ulcers Plan: Cultures: - 08/26 Right heel: Staph aureus and Pseudomonas aeruginosa, susceptible to Vancomycin and Levofloxacin - 08/26 Left heel: Staph aureus and Pseudomonas aeruginosa, susceptible to Vancomycin and Levofloxacin Antibiotics: - Current on IV Vancomycin for HD and Levaquin (09/04- ) Recommendations: - Continue IV Levaquin Q48H for total of 4 weeks duration - Hyperbaric oxygen therapy of heels and fingers - LTAC placement for aggressive antibiotics management 08/30: Dr. Peterson had excisional debridement of right heel ulcer (3) Dry gangrene for RT 3rd finger Plan: Cultures: - 09/05 Right finger wound: No growth Antibiotics: - Current on IV Vancomycin for HD and Levaquin (09/04- ) Recommendations: - Continue IV Levaquin Q48H for total of 4 weeks duration - Hyperbaric oxygen therapy of heels and fingers - LTAC placement for aggressive antibiotics management 09/05: Dr. Hayes performed amputation of the right middle finger at the middle phalanx level with flap closure - Plan - Septic shock secondary to diabetic/pressure ulcerations bilateral heels: Continue antibiotics for total of 4 weeks - Dry gangrene of right middle finger s/p amputation (09/05) - NSTEMI with underlying CAD/recent heart cath with PCI - ESRD on HD MWF with noncompliance/hyperkalemia - Diabetes mellitus type 2insulin-dependent - Chronic diastolic congestive heart failure - Severe protein calorie malnutrition - Anemia of chronic disease - Hypertension - Hypothyroidism with thyroidectomy - hyperlipidemia - Depression - Paralyzed Stomach - Neuropathy - CAD - Back fusion - Bilateral total knee replacements - Cholecystectomy ID will monitor the patient closely for signs of infection with fever and WBC trends Case has been discussed with Dr. Leblanc, N
[2022-09-12] MEDS: COLLAGENASE 30 GM OINTMENT TOP SCH (08:53)
[2022-09-12] MEDS: ONDANSETRON 4 MG/2 ML VIAL IV PRN ×2 (09:56→21:11)
--- NOTE | 2022-09-12 10:32 | PN ---
Patient lying in bed. No new acute event. Chart reviewed. Denies any headache, nausea, vomiting, c hest pain, abdominal pain, constipation, or diarrhea. Objective: Vital Signs: Temperature 97, pulse 99, respirations 18, blood pressure 111/57. Lungs: Basal crackles. Heart: S1, S2. Regular. Abdomen: Soft, nontender. Bowel sounds present. Extremity: Wounds noted. Laboratory Data: Reviewed. Assessment And Plan: Bilateral heel wounds, status post amputation of the middle finger secondary to gangrenous changes. End-stage renal disease. Consider long-term acute care for hyperbaric treatmen t and more aggressive wound care. Continue antibiotic for 6 weeks. Levaquin and vancomycin. We antoni l follow the patient as needed. NF/MODL Voice ID: [id number] Report ID: [id number]
[2022-09-12] MEDS: Levofloxacin 250mg IV 250 MG/50 ML BAG IV SCH (16:15)
[2022-09-12] MEDS: ATORVASTATIN 40 MG TAB PO SCH (21:09)
[2022-09-12] MEDS: LORATADINE 10 MG TAB PO PRN (22:41)
--- NOTE | 2022-09-13 01:46 | PN ---
Date of Progress Note: 09/12/2022 Chief Complaint: End-stage renal disease, on hemodialysis 3 times per week. Subjective: Patient received dialysis yesterday. Patient is undergoing dialysis with ultrafiltratio n to control anasarca. Fluid overload is gradually resolving. Patient denies PND or orthopnea. Physical Examination: Lungs: Clear to auscultation bilaterally. Heart: S1, S2. Abdomen: Soft. Extremities: Dressing in place. Impression And Plan: 1.End-stage renal disease. Dialysis will be done tomorrow with ultrafiltration. Continue to monito r electrolytes closely. 2.Hypervolemia, anasarca, improving. The fluid overload is resolving. Continue low-sodium diet p.o ., fluid restriction, and advanced dialysis with ultrafiltration. 3.Diabetic foot infection. Continue antibiotics. Wound care. 4.Diabetes mellitus, on insulin. 5.Anemia of chronic kidney disease. Continue XENIA. EB/MODL Voice ID: [id number] Report ID: [id number]
[2022-09-13] MEDS: HYDROCODONE/APAP 7.5/325 MG TAB PO PRN ×3 (04:02→18:46)
[2022-09-13] MEDS: LEVOTHYROXINE SOD 0.075 MG TAB PO SCH (04:03)
[2022-09-13 06:13] LABS: Absolute Lymphocytes (CBC) 0.6 K/uL (0.7-4.9); Hematocrit 26.2 % (36.0-45.0); Lymphocytes % 6.9 % (15.3-44.8); MCV 86.5 fL (80-100); MPV 6.4 fL (7.6-11.3); RBC Red Blood Cell Count 3.03 M/uL (3.86-4.86)
[2022-09-13 06:43] LABS: Magnesium 2.4 mg/dL (1.6-2.4); Phosphorus 4.6 mg/dL (2.5-4.9); Potassium 4.4 mmol/L (3.5-5.1)
[2022-09-13] MEDS: INSULIN -REGULAR HUMAN 50 UNIT/0.5 ML ML SQ SCH ×4 (07:30→21:00)
[2022-09-13] MEDS: CLOPIDOGREL 75 MG TABLET PO SCH (07:37)
[2022-09-13] MEDS: SEVELAMER CARBONATE 800 MG TABLET PO SCH ×3 (07:37→17:00)
[2022-09-13] MEDS: ENSURE MAX PROTEIN 330 ML LIQUID PO SCH ×2 (07:37→21:00)
[2022-09-13] MEDS: ASPIRIN EC 81 MG TAB PO SCH (07:37)
[2022-09-13] MEDS: FOLIC ACID 1 MG TABLET PO SCH (07:37)
[2022-09-13 08:12] LABS: Anisocytosis SLIGHT; Basophilic Stippling 1+; Blood Morphology Comment NOTED (NOT SEEN); Platelet Estimate ADEQ
--- NOTE | 2022-09-13 08:40 | P.PN ---
Subjective Date of Service: 09/13/22 Chief Complaint: Septic shock, hyperkalemia, ESRD Patient lying in bed with sister at the bedside. No major event upon examination Physical Examination - Vital Signs Temperature: 97.8 F Blood Pressure: 125/62 Pulse: 92 Respirations: 18 Pulse Ox (%): 95 - Physical Exam General: Alert, In no apparent distress, Oriented x3 Respiratory: Normal air movement Cardiovascular: No edema, Normal S1 S2 Gastrointestinal: Normal bowel sounds Musculoskeletal: Other (b/l heel diabetic ulcers and s/p right 3rd finger amputation) Integumentary: Skin lesion (multiple dried lesions in fingers and toes), Diabetic ulcer (b/l heel diabetic ulcers and s/p right 3rd finger amputation) Neurological: Normal speech, Normal tone, Normal affect, Abnormal sensation (neuropathy of all extremities) - Studies active medications Acetaminophen (Acetaminophen 500 Mg Tab) 500 mg PO Q4HP PRN PRN Reason: TEMP > 100' F Last Admin: 09/02/22 23:19 Dose: 500 mg Hydrocodone Bitart/Acetaminophen (Hydrocodone/Apap 7.5/325 Mg Tab) 1 tab PO Q4H PRN PRN Reason: Pain scale 8-10 (Severe) Last Admin: 09/13/22 04:02 Dose: 1 tab Albuterol Sulfate (Albuterol 2.5 Mg/3 Ml Neb Sonia) 2.5 mg NEB [id number] PRN PRN Reason: SHORTNESS OF BREATH Aspirin (Aspirin Ec 81 Mg Tab) 81 mg PO DAILY [facility] Last Admin: 09/13/22 07:37 Dose: Not Given Atorvastatin Calcium (Atorvastatin 40 Mg Tab) 40 mg PO BEDTIME [facility] Last Admin: 09/12/22 21:09 Dose: 40 mg Clopidogrel Bisulfate (Clopidogrel 75 Mg Tablet) 75 mg PO DAILY [facility] Last Admin: 09/13/22 07:37 Dose: Not Given Collagenase (Collagenase 30 Gm Ointment) 1 appl TOP DAILY [facility] Last Admin: 09/12/22 08:53 Dose: 1 appl Epoetin Derrick (Epoetin Derrick 10,000 Unit/Ml Vial) 10,000 unit IV EVERY HD [facility] Last Admin: 09/11/22 13:00 Dose: 10,000 unit Folic Acid (Folic Acid 1 Mg Tablet) 1 mg PO DAILY [facility] Last Admin: 09/13/22 07:37 Dose: Not Given Heparin Sodium (Porcine) (Heparin 1,000 Unit/Ml Vial) 6,000 unit IV EVERY HD PRN PRN Reason: FOR DIALYSIS CATHETER CARE Last Admin: 09/11/22 14:02 Dose: 6,000 unit Heparin Sodium (Porcine) (Heparin 1,000 Unit/Ml Vial) 3,000 unit IV EVERY HD PRN PRN Reason: Prevent Lines Clotting Last Admin: 09/11/22 10:57 Dose: 3,000 unit Vancomycin HCl 1 gm/ Sodium (Chloride) 250 mls @ 250 mls/hr IVPB AFTER EACH DIALYSIS [facility]; Protocol Last Admin: 09/11/22 15:48 Dose: 250 mls Sodium Chloride (Sodium Chloride) 250 mls @ 0 mls/hr IV .Q0M [facility] Levofloxacin/Dextrose (Levaquin 250mg/50 Ml Ivpb) 250 mg in 50 mls @ 50 mls/hr IV Q48H [facility] Stop: 09/29/22 17:01 Last Admin: 09/12/22 16:15 Dose: 50 mls Insulin Human Regular (Insulin -Regular Human 50 Unit/0.5 Ml Ml) 0 unit SQ ACHS [facility]; Protocol Last Admin: 09/12/22 21:00 Dose: Not Given Levothyroxine Sodium (Levothyroxine Sod 0.075 Mg Tab) 0.15 mg PO DAILYAC [facility] Last Admin: 09/13/22 04:03 Dose: 0.15 mg Loratadine (Loratadine 10 Mg Tab) 10 mg PO DAILY PRN PRN Reason: ALLERGIES Last Admin: 09/12/22 22:41 Dose: 10 mg Ondansetron HCl (Ondansetron 4 Mg/2 Ml Vial) 4 mg IV Q6HP PRN PRN Reason: NAUSEA / VOMITING Last Admin: 09/12/22 21:11 Dose: 4 mg Prochlorperazine (Prochlorperazine 5 Mg Tab) 5 mg PO Q6H PRN PRN Reason: NAUSEA / VOMITING Last Admin: 09/10/22 21:07 Dose: 5 mg Sevelamer Carbonate (Sevelamer Carbonate 800 Mg Tablet) 2,400 mg PO TIDWM [facility] Last Admin: 09/13/22 07:37 Dose: Not Given Sodium Chloride (Flush Normal Saline 10 Ml) 10 ml IV BID [facility] Last Admin: 09/12/22 21:10 Dose: 10 ml Microbiology Data (last 24 hrs): Microbiology 08/26/22 23:27 Wound - Left Heel Gram Stain - Final 08/26/22 23:27 Wound - Left Heel Culture & Sensitivity - Final Pseudomonas Aeruginosa Staph Aureus 08/26/22 23:26 Wound - Right Heel Gram Stain - Final 08/26/22 23:26 Wound - Right Heel Culture & Sensitivity - Final Pseudomonas Aeruginosa Staph Aureus 08/26/22 19:07 Blood - Blood Aerobic Blood Culture - Final Staph Aureus 08/26/22 19:07 Blood - Blood Blood Culture Gram Stain - Final 08/26/22 19:07 Blood - Blood Anaerobic Blood Culture - Final Staph Aureus 08/26/22 19:07 Blood - Blood Gram Stain - Final 08/26/22 19:36 Blood - Blood Aerobic Blood Culture - Final Staph Aureus 08/26/22 19:36 Blood - Blood Blood Culture Gram Stain - Final 08/26/22 19:36 Blood - Blood Anaerobic Blood Culture - Final Staph Aureus 08/26/22 19:36 Blood - Blood Gram Stain - Final Assessment And Plan - Current Problems (Diagnosis) (1) Bacteremia Plan: Cultures: - 09/01 and 09/03 BC: Negative - 08/27 BC: Staph aureus, susceptible to Vancomycin and Levofloxacin - 08/26 BC: Staph aureus, susceptible to Vancomycin and Levofloxacin Antibiotics: - Current on IV Vancomycin for HD and Levaquin (09/04- ) Recommendations: - Continue IV Levaquin Q48H for total of 4 weeks duration from 09/01 (repeated BC negative) (2) Diabetic foot ulcers Plan: Cultures: - 08/26 Right heel: Staph aureus and Pseudomonas aeruginosa, susceptible to Vancomycin and Levofloxacin - 08/26 Left heel: Staph aureus and Pseudomonas aeruginosa, susceptible to Vancomycin and Levofloxacin Antibiotics: - Current on IV Vancomycin for HD and Levaquin (09/04- ) Recommendations: - Continue IV Levaquin Q48H for total of 4 weeks duration - Hyperbaric oxygen therapy of heels and fingers - LTAC placement for aggressive antibiotics management 08/30: Dr. Peterson had excisional debridement of right heel ulcer (3) Dry gangrene for RT 3rd finger Plan: Cultures: - 09/05 Right finger wound: No growth Antibiotics: - Current on IV Vancomycin for HD and Levaquin (09/04- ) Recommendations: - Continue IV Levaquin Q48H for total of 4 weeks duration - Hyperbaric oxygen therapy of heels and fingers - LTAC placement for aggressive antibiotics management 09/05: Dr. Hayes performed amputation of the right middle finger at the middl e phalanx level with flap closure - Plan - Septic shock secondary to diabetic/pressure ulcerations bilateral heels: Continue antibiotics for total of 4 weeks - Dry gangrene of right middle finger s/p amputation (09/05) - NSTEMI with underlying CAD/recent heart cath with PCI - ESRD on HD MWF with noncompliance/hyperkalemia - Diabetes mellitus type 2insulin-dependent - Chronic diastolic congestive heart failure - Severe protein calorie malnutrition - Anemia of chronic disease - Hypertension - Hypothyroidism with thyroidectomy - hyperlipidemia - Depression - Paralyzed Stomach - Neuropathy - CAD - Back fusion - Bilateral total knee replacements - Cholecystectomy ID will monitor the patient closely for signs of infection with fever and WBC trends Case has been discussed with Dr. Leblanc, N
[2022-09-13] MEDS: COLLAGENASE 30 GM OINTMENT TOP SCH (09:13)
[2022-09-13] MEDS ORDERED: NA CHLORIDE 0.9% 500 ML ONE (11:23)
[2022-09-13] MEDS ORDERED: propofoL 200 MG/20 ML VIAL IV ONE ×2 (11:37→12:28)
[2022-09-13] MEDS ORDERED: FENTANYL CITR 100 MCG/2 ML ONE (11:37)
[2022-09-13] MEDS ORDERED: MIDAZOLAM HCL 2 MG/2 ML INJ ONE (11:38)
[2022-09-13] MEDS ORDERED: dexAMETHasone 10 MG/ML VIAL ONE (11:38)
[2022-09-13] MEDS ORDERED: KETOROLAC 30 MG/ML INJ ONE (11:38)
[2022-09-13] MEDS ORDERED: ONDANSETRON 4 MG/2 ML VIAL ONE (11:39)
[2022-09-13] MEDS ORDERED: LIDOCAINE 2% MPF 5 ML VIAL ONE (11:39)
[2022-09-13] MEDS ORDERED: BUPIVACAINE 0.25% PF 10 ML VIAL ONE (11:44)
[2022-09-13] MEDS ORDERED: HYDROCODONE/APAP 7.5/325 MG TAB ONE (11:47)
[2022-09-13] MEDS ORDERED: CEFAZOLIN SODIUM 2 GM/VIAL ONE (11:52)
--- NOTE | 2022-09-13 12:35 | P.OP ---
Preoperative diagnosis: Right heel pressure ulcer Postoperative diagnosis: right heel pressure ulcer Primary procedure: Excisional Debridement of RIGHT heel ulcer Anesthesia: MAC + Local Estimated blood loss: <5cc Findings: pressure necrosis to RIGHT heel, ~ 6cm round wound to fascia overlying bone Complications: None Transferred to: Recovery Room Condition: Good
[2022-09-13] MEDS ORDERED: HYDROMORPHONE HCL 1 MG/ML INJ ONE (13:14)
--- NOTE | 2022-09-13 13:41 | OP ---
Date of Procedure: 09/13/2022 Surgeon: Avtar Peterson MD, Preoperative Diagnosis: Right heel pressure ulcer. Postoperative Diagnosis: Right heel pressure ulcer. Procedure Performed: Excisional debridement of the right heel pressure ulcer. Anesthesia: MAC plus local with 0.25% Marcaine. Estimated Blood Loss: Less than 5 cc. Specimen: Pressure necrosis to the right heel with a 6 cm round wound to the fascia overlying the kevin ne. Complications: None. Disposition: The patient was transferred to the recovery room in good condition. Procedure In Detail: After informed consent was obtained, the patient was brought to the operating r oom, prepped and draped in the usual sterile fashion after adequate anesthesia was achieved. I made a curvilinear incision following the demarcation area of obvious gangrenous dry pressure ulcer to the right heel down through subcutaneous tissues using electrocautery to dissect through the plantar fas gail and ultimately extending to the tendinous conductions over the bone of the calcaneus. Ultimately , all necrotic tissues were removed. The area was copiously irrigated. Hemostasis was achieved with electrocautery and the wound was then dressed and packed with Vashe-soaked Kerlix and a wrap was eli peggy with fluffy pressure reduction dressings on the area. The patient tolerated the procedure well without evidence of complication and transferred to PACU in good condition. All counts were cor rect at the end of the case. SOCRATES/RENÉ Voice ID: [id number] Report ID: [id number]
--- NOTE | 2022-09-13 14:41 | PN ---
Date of Progress Note: 09/13/2022 Subjective: The patient was admitted with gangrenous finger, status post amputation. Patient underg oing debridement for her foot also. Physical Examination: Vital Signs: Blood pressure is 125/62, pulse of 92, afebrile. Chest: Clear to auscultation. Heart: S1, S2. Systolic murmur. Abdomen: Soft, nontender. Extremities: Dressing on both feet, dressing on the right hand with amputation of middle finger. Laboratory Data: Hemoglobin 8.7. Sodium 133, potassium 4.4, bicarb 28, BUN 45, creatinine 6.1, calc ium 9.4, phosphorus 4.6. Current Medications: The patient on include; 1.Aspirin. 2.Levaquin. 3.Vancomycin. 4.Claritin. 5.Atorvastatin. 6.Renvela. 7.Folic acid. Assessment And Plan: 1.End-stage renal disease. We will continue the patient on dialysis Sunday, Sunday, Sunday. Enedina eduled for dialysis today. 2.Secondary hyperparathyroidism, stable. Continue current Renvela. 3.Anemia of chronic kidney disease. Continue XENIA. 4.Gangrenous finger, status post amputation with foot ulcer. Continue treatment. Follow up with Joce walton. JOSÉ MIGUEL/RENÉ Voice ID: [id number] Report ID: [id number]
[2022-09-13] MEDS: EPOETIN ALFA 10,000 UNIT/ML VIAL IV SCH (17:00)
[2022-09-13] MEDS: ATORVASTATIN 40 MG TAB PO SCH (21:32)
[2022-09-14] MEDS: HYDROCODONE/APAP 7.5/325 MG TAB PO PRN ×5 (01:19→23:24)
[2022-09-14] MEDS: LEVOTHYROXINE SOD 0.075 MG TAB PO SCH (06:30)
[2022-09-14] MEDS: INSULIN -REGULAR HUMAN 50 UNIT/0.5 ML ML SQ SCH ×4 (07:30→21:00)
[2022-09-14] MEDS: FOLIC ACID 1 MG TABLET PO SCH (08:43)
[2022-09-14] MEDS: SEVELAMER CARBONATE 800 MG TABLET PO SCH ×3 (08:43→16:46)
[2022-09-14] MEDS: ASPIRIN EC 81 MG TAB PO SCH (08:43)
[2022-09-14] MEDS: CLOPIDOGREL 75 MG TABLET PO SCH (08:43)
[2022-09-14] MEDS: ENSURE MAX PROTEIN 330 ML LIQUID PO SCH ×2 (08:46→21:00)
[2022-09-14] MEDS: COLLAGENASE 30 GM OINTMENT TOP SCH (08:46)
--- NOTE | 2022-09-14 09:06 | P.PN ---
Subjective Date of Service: 09/14/22 Chief Complaint: Septic shock, hyperkalemia, ESRD Patient lying in bed comfortable with no major event upon examination. In good spirit and pleasant Physical Examination - Vital Signs Temperature: 97.6 F Blood Pressure: 123/62 Pulse: 89 Respirations: 16 Pulse Ox (%): 100 - Physical Exam General: Alert, In no apparent distress, Oriented x3 Neck: Supple Respiratory: Clear to auscultation bilaterally, Normal air movement Cardiovascular: Normal pulses, Normal S1 S2 Gastrointestinal: Normal bowel sounds Musculoskeletal: Other (b/l heel diabetic ulcers and s/p right 3rd finger amputation) Integumentary: Skin lesion (multiple dried lesions in fingers and toes), Diabetic ulcer (b/l heel diabetic ulcers and s/p right 3rd finger amputation) Neurological: Normal speech, Normal tone, Normal affect, Abnormal sensation (neuropathy of all extremities) - Studies active medications Acetaminophen (Acetaminophen 500 Mg Tab) 500 mg PO Q4HP PRN PRN Reason: TEMP > 100' F Last Admin: 09/02/22 23:19 Dose: 500 mg Hydrocodone Bitart/Acetaminophen (Hydrocodone/Apap 7.5/325 Mg Tab) 1 tab PO Q4H PRN PRN Reason: Pain scale 8-10 (Severe) Last Admin: 09/14/22 06:32 Dose: 1 tab Albuterol Sulfate (Albuterol 2.5 Mg/3 Ml Neb Sonia) 2.5 mg NEB [id number] PRN PRN Reason: SHORTNESS OF BREATH Aspirin (Aspirin Ec 81 Mg Tab) 81 mg PO DAILY [facility] Last Admin: 09/14/22 08:43 Dose: 81 mg Atorvastatin Calcium (Atorvastatin 40 Mg Tab) 40 mg PO BEDTIME [facility] Last Admin: 09/13/22 21:32 Dose: 40 mg Clopidogrel Bisulfate (Clopidogrel 75 Mg Tablet) 75 mg PO DAILY [facility] Last Admin: 09/14/22 08:43 Dose: 75 mg Collagenase (Collagenase 30 Gm Ointment) 1 appl TOP DAILY [facility] Last Admin: 09/14/22 08:46 Dose: 1 appl Epoetin Derrick (Epoetin Derrick 10,000 Unit/Ml Vial) 10,000 unit IV EVERY HD [facility] Last Admin: 09/13/22 17:00 Dose: 10,000 unit Folic Acid (Folic Acid 1 Mg Tablet) 1 mg PO DAILY [facility] Last Admin: 09/14/22 08:43 Dose: 1 mg Heparin Sodium (Porcine) (Heparin 1,000 Unit/Ml Vial) 6,000 unit IV EVERY HD PRN PRN Reason: FOR DIALYSIS CATHETER CARE Last Admin: 09/13/22 18:02 Dose: 6,000 unit Heparin Sodium (Porcine) (Heparin 1,000 Unit/Ml Vial) 3,000 unit IV EVERY HD PRN PRN Reason: Prevent Lines Clotting Last Admin: 09/13/22 15:00 Dose: 3,000 unit Sodium Chloride (Sodium Chloride) 250 mls @ 0 mls/hr IV .Q0M [facility] Levofloxacin/Dextrose (Levaquin 250mg/50 Ml Ivpb) 250 mg in 50 mls @ 50 mls/hr IV Q48H [facility] Stop: 09/29/22 17:01 Last Admin: 09/12/22 16:15 Dose: 50 mls Insulin Human Regular (Insulin -Regular Human 50 Unit/0.5 Ml Ml) 0 unit SQ ACHS [facility]; Protocol Last Admin: 09/14/22 07:30 Dose: Not Given Levothyroxine Sodium (Levothyroxine Sod 0.075 Mg Tab) 0.15 mg PO DAILYAC [facility] Last Admin: 09/14/22 06:30 Dose: 0.15 mg Loratadine (Loratadine 10 Mg Tab) 10 mg PO DAILY PRN PRN Reason: ALLERGIES Last Admin: 09/12/22 22:41 Dose: 10 mg Ondansetron HCl (Ondansetron 4 Mg/2 Ml Vial) 4 mg IV Q6HP PRN PRN Reason: NAUSEA / VOMITING Last Admin: 09/12/22 21:11 Dose: 4 mg Prochlorperazine (Prochlorperazine 5 Mg Tab) 5 mg PO Q6H PRN PRN Reason: NAUSEA / VOMITING Last Admin: 09/10/22 21:07 Dose: 5 mg Sevelamer Carbonate (Sevelamer Carbonate 800 Mg Tablet) 2,400 mg PO TIDWM [facility] Last Admin: 09/14/22 08:43 Dose: 2,400 mg Sodium Chloride (Flush Normal Saline 10 Ml) 10 ml IV BID [facility] Last Admin: 09/14/22 08:46 Dose: 10 ml Microbiology Data (last 24 hrs): Microbiology 08/26/22 23:27 Wound - Left Heel Gram Stain - Final 08/26/22 23:27 Wound - Left Heel Culture & Sensitivity - Final Pseudomonas Aeruginosa Staph Aureus 08/26/22 23:26 Wound - Right Heel Gram Stain - Final 08/26/22 23:26 Wound - Right Heel Culture & Sensitivity - Final Pseudomonas Aeruginosa Staph Aureus 08/26/22 19:07 Blood - Blood Aerobic Blood Culture - Final Staph Aureus 08/26/22 19:07 Blood - Blood Blood Culture Gram Stain - Final 08/26/22 19:07 Blood - Blood Anaerobic Blood Culture - Final Staph Aureus 08/26/22 19:07 Blood - Blood Gram Stain - Final 08/26/22 19:36 Blood - Blood Aerobic Blood Culture - Final Staph Aureus 08/26/22 19:36 Blood - Blood Blood Culture Gram Stain - Final 08/26/22 19:36 Blood - Blood Anaerobic Blood Culture - Final Staph Aureus 08/26/22 19:36 Blood - Blood Gram Stain - Final Assessment And Plan - Current Problems (Diagnosis) (1) Bacteremia Plan: Cultures: - 09/01 and 09/03 BC: Negative - 08/27 BC: Staph aureus, susceptible to Vancomycin and Levofloxacin - 08/26 BC: Staph aureus, susceptible to Vancomycin and Levofloxacin Antibiotics: - Current on IV Vancomycin for HD and Levaquin (09/04- ) Recommendations: - Continue IV Levaquin Q48H for total of 4 weeks duration from 09/01 (repeated BC negative) (2) Diabetic foot ulcers Plan: Cultures: - 08/26 Right heel: Staph aureus and Pseudomonas aeruginosa, susceptible to Vancomycin and Levofloxacin - 08/26 Left heel: Staph aureus and Pseudomonas aeruginosa, susceptible to Vancomycin and Levofloxacin Antibiotics: - Current on IV Vancomycin for HD and Levaquin (09/04- ) Recommendations: - Continue IV Levaquin Q48H for total of 4 weeks duration - Hyperbaric oxygen therapy of heels and fingers - LTAC placement for aggressive antibiotics management 08/30: Dr. Peterson had excisional debridement of right heel ulcer 09/13 Dr. 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 Hayes performed amputation of the right middle finger at the middle phalanx level with flap closure - Plan - Septic shock secondary to diabetic/pressure ulcerations bilateral heels: Continue antibiotics for total of 4 weeks - Dry gangrene of right middle finger s/p amputation (09/05) - NSTEMI with underlying CAD/recent heart cath with PCI - ESRD on HD MWF with noncompliance/hyperkalemia - Diabetes mellitus type 2insulin-dependent - Chronic diastolic congestive heart failure - Severe protein calorie malnutrition - Anemia of chronic disease - Hypertension - Hypothyroidism with thyroidectomy - hyperlipidemia - Depression - Paralyzed Stomach - Neuropathy - CAD - Back fusion - Bilateral total knee replacements - Cholecystectomy ID will monitor the patient closely for signs of infection with fever and WBC trends Case has been discussed with Dr. Leblanc N
--- NOTE | 2022-09-14 15:47 | PN ---
Date of Progress Note: 09/14/2022 Subjective: Patient was admitted with gangrenous finger, status post middle finger amputation. Marycruz ent had also bilateral foot infection status post debridement. Last session of debridement was yeste rday. Patient tolerated the procedure. Physical Examination: Vital Signs: Blood pressure 123/62, pulse of 87, afebrile. Chest: Clear to auscultation. Heart: S1, S2. Systolic murmur. Abdomen: Soft, nontender. No guarding or rebound. Extremities: Dressing on both feet. Dressing on the right hand with middle finger amputation. Neurologic: Alert. No focality. Laboratory Data: Hemoglobin 8.7. Sodium of 133, potassium 4.4, bicarb 28, BUN 45, creatinine 6.1, c alcium 9.4. Phosphorus 4.6, magnesium 2.4. Current Medications: The patient on include: 1.Albuterol. 2.Heparin. 3.Epogen. 4.Renvela 2400 with each meal. 5.Folic acid. Assessment And Plan: 1.End-stage renal disease. I am going to continue the patient on the dialysis Sunday, Sunday, F . Patient is going to be scheduled for dialysis tomorrow. 2.Secondary hyper thyroid continue current binder dose and we will follow up. 3.Anemia of chronic kidney disease. Continue XENIA. 4.Hypertension, controlled, optimal. 5.Finger infection, status post amputation. 6.Foot infection, diabetic foot status post debridement. Continue current treatment. Follow up wit h the wound team. 7.Gastroparesis secondary to diabetes. Continue symptomatic treatment. 8.Hyponatremia secondary to dilutional, secondary to renal failure. No need for treatment, going to be corrected with dialysis. 9.Overload, currently normal volume back to her dialysis schedule as 3 times a week and we will foll ow up. JOSÉ MIGUEL/RENÉ Voice ID: [id number] Report ID: [id number]
[2022-09-14] MEDS: Levofloxacin 250mg IV 250 MG/50 ML BAG IV SCH (16:46)
[2022-09-14] MEDS: ONDANSETRON 4 MG/2 ML VIAL IV PRN (18:22)
[2022-09-14] MEDS: ATORVASTATIN 40 MG TAB PO SCH (20:59)
[2022-09-15] MEDS: LEVOTHYROXINE SOD 0.075 MG TAB PO SCH (06:14)
[2022-09-15] MEDS: INSULIN -REGULAR HUMAN 50 UNIT/0.5 ML ML SQ SCH ×4 (07:30→21:00)
[2022-09-15] MEDS: SEVELAMER CARBONATE 800 MG TABLET PO SCH ×3 (08:00→17:19)
[2022-09-15] MEDS: ENSURE MAX PROTEIN 330 ML LIQUID PO SCH ×2 (09:00→20:57)
[2022-09-15] MEDS: ASPIRIN EC 81 MG TAB PO SCH (09:38)
[2022-09-15] MEDS: FOLIC ACID 1 MG TABLET PO SCH (09:38)
[2022-09-15] MEDS: HYDROCODONE/APAP 7.5/325 MG TAB PO PRN ×4 (09:38→20:57)
[2022-09-15] MEDS: COLLAGENASE 30 GM OINTMENT TOP SCH (09:39)
[2022-09-15] MEDS: CLOPIDOGREL 75 MG TABLET PO SCH (09:39)
[2022-09-15] MEDS: ONDANSETRON 4 MG/2 ML VIAL IV PRN (13:07)
--- NOTE | 2022-09-15 14:29 | P.PN ---
Subjective Date of Service: 09/15/22 Chief Complaint: Septic shock, hyperkalemia, ESRD Subjective: Other (Received HD today.) Physical Examination - Vital Signs Temperature: 97.2 F Blood Pressure: 141/69 Pulse: 93 Respirations: 16 Pulse Ox (%): 99 - Physical Exam General: Other (Chronically ill appearing) HEENT: Atraumatic, Normocephalic Neck: Supple Respiratory: Other (Symmetric chest expansion) Cardiovascular: No rubs, No murmurs Gastrointestinal: Soft and benign Musculoskeletal: No clubbing Integumentary: No warmth Neurological: Normal tone Urinary: Other (No bladder distention) External genitalia: Deferred Rectal: Deferred Assessment And Plan - Plan # ESRD on outpt HD MWF at [facility] HD received today HD access: L TDC EDW: 101 kg # Hyperkalemia Resolved HD as above # Severe sepsis secondary to infected bilateral diabetic heel pressure ulcers S/p debridement Per other services # Acute on chronic diastolic heart failure HD as above # Anemia H/H below goal Retacrit SQ MWF # Renal osteodystrophy Monitor Ca & phos # DM2 Mngt per primary team # Hypothyroidism Levothyroxine
[2022-09-15] MEDS: ATORVASTATIN 40 MG TAB PO SCH (20:57)
[2022-09-15] MEDS: DOCUSATE NA 100 MG CAP PO SCH (20:57)
[2022-09-16] MEDS: HYDROCODONE/APAP 7.5/325 MG TAB PO PRN ×4 (02:54→21:10)
[2022-09-16] MEDS: LEVOTHYROXINE SOD 0.075 MG TAB PO SCH (06:03)
[2022-09-16] MEDS: INSULIN -REGULAR HUMAN 50 UNIT/0.5 ML ML SQ SCH ×4 (07:30→20:02)
[2022-09-16] MEDS: ENSURE MAX PROTEIN 330 ML LIQUID PO SCH ×2 (09:00→21:00)
[2022-09-16] MEDS: DOCUSATE NA 100 MG CAP PO SCH ×2 (09:01→20:15)
[2022-09-16] MEDS: SEVELAMER CARBONATE 800 MG TABLET PO SCH ×3 (09:01→16:59)
[2022-09-16] MEDS: ASPIRIN EC 81 MG TAB PO SCH (09:01)
[2022-09-16] MEDS: FOLIC ACID 1 MG TABLET PO SCH (09:01)
[2022-09-16] MEDS: CLOPIDOGREL 75 MG TABLET PO SCH (09:01)
[2022-09-16] MEDS: COLLAGENASE 30 GM OINTMENT TOP SCH (09:03)
[2022-09-16] MEDS ORDERED: CYCLOBENZAPRINE 10 MG TAB PO ONE (14:22)
[2022-09-16] MEDS: ONDANSETRON 4 MG/2 ML VIAL IV PRN ×2 (15:39→21:10)
[2022-09-16] MEDS: Levofloxacin 250mg IV 250 MG/50 ML BAG IV SCH (17:27)
[2022-09-16] MEDS: ATORVASTATIN 40 MG TAB PO SCH (20:15)
--- NOTE | 2022-09-16 23:20 | P.PN ---
Date of Service: 09/11/22 Subjective Patient continues to remain stable. Patient denies any new complaints. Physical Examination - Vital Signs reviewed - Physical Exam General: Alert, In no apparent distress, Oriented x3 Respiratory: Clear to auscultation bilaterally Cardiovascular: RRR w/out murmur Gastrointestinal: Soft NT/ND BS positive Musculoskeletal: No C/C/E Neurological: No focal deficits Skin: Bilateral heel wound and right hand/finger wound; dressing is melchor n/dry/intact Assessment & Plan - Problems (Diagnosis) (1) ESRD (end stage renal disease) Current Visit: Yes Status: Acute (2) Diabetes mellitus Current Visit: No Status: Acute (3) Hyperkalemia Current Visit: No Status: Acute (4) NSTEMI (non-ST elevated myocardial infarction) Current Visit: No Status: Acute (5) Hypothyroidism Current Visit: No Status: Chronic Qualifiers: Hypothyroidism type: acquired Qualified Code(s): E03.9 - Hypothyroidism, unspecified (6) Type 2 diabetes mellitus Current Visit: No Status: Chronic Qualifiers: Diabetes mellitus custodial insulin use: with custodial use Diabetes mellitus complication status: with hyperglycemia Qualified Code(s): E11.65 - Type 2 diabetes mellitus with hyperglycemia; Z79.4 - nursing home (current) use of insulin (7) Anemia Current Visit: No Status: Acute Qualifiers: Anemia type: due to chronic kidney disease Chronic kidney disease stage: on chronic dialysis Qualified Code(s): N18.6 - End stage renal disease; D63.1 - Anemia in chronic kidney disease; Z99.2 - Dependence on renal dialysis (8) Congestive heart failure (CHF) Current Visit: No Status: Acute (9) Obesity Current Visit: No Status: Acute - Plan Continue with POC as mentioned below: 1. Arrange for outpt IV vancomycin after HD; placement pending 2. ESRD; Nephrology for HD 3. Continue with wound care per surgery 4. Aspirin/lipitor; statin therapy and antiplatelet therapy for PAD/CAD; Aortogram and GERALDINE completed-no obvious vegetations 5. BP and BS are stable; Continue with strict control 6. PT eval appreciated 7. Monitor H&H 8. Blood culture repeat are negative 9. GI/DVT prophylaxis
--- NOTE | 2022-09-16 23:21 | P.PN ---
Date of Service: 09/12/22 Subjective Patient denies any new complaints. Physical Examination - Vital Signs reviewed - Physical Exam General: Alert, In no apparent distress, Oriented x3 Cardiovascular: RRR w/out murmur Gastrointestinal: Soft NT/ND BS positive Musculoskeletal: No C/C/E Skin: Bilateral heel wound and right hand/finger wound; dressing is clean/dry/intact Assessment & Plan - Problems (Diagnosis) (1) ESRD (end stage renal disease) Current Visit: Yes Status: Acute (2) Diabetes mellitus Current Visit: No Status: Acute (3) Hyperkalemia Current Visit: No Status: Acute (4) NSTEMI (non-ST elevated myocardial infarction) Current Visit: No Status: Acute (5) Hypothyroidism Current Visit: No Status: Chronic Qualifiers: Hypothyroidism type: acquired Qualified Code(s): E03.9 - Hypothyroidism, unspecified (6) Type 2 diabetes mellitus Current Visit: No Status: Chronic Qualifiers: Diabetes mellitus intermodal customer service insulin use: with intermodal customer service use Diabetes manohar guerrero complication status: with hyperglycemia Qualified Code(s): E11.65 - Type 2 diabetes mellitus with hyperglycemia; Z79.4 - intermodal customer service (current) use of insulin (7) Anemia Current Visit: No Status: Acute Qualifiers: Anemia type: due to chronic kidney disease Chronic kidney disease stage: on chronic dialysis Qualified Code(s): N18.6 - End stage renal disease; D63.1 - Anemia in chronic kidney disease; Z99.2 - Dependence on renal dialysis (8) Congestive heart failure (CHF) Current Visit: No Status: Acute (9) Obesity Current Visit: No Status: Acute - Plan Continue with POC as mentioned below: 1. Outpt IV vancomycin after HD; placement pending 2. ESRD; Nephrology for HD 3. Continue with wound care per surgery 4. Aspirin/lipitor; statin therapy and antiplatelet therapy for PAD/CAD; Aortogram and GERALDINE completed-no obvious vegetations 5. BP and BS are stable; Continue with strict control 6. PT eval appreciated 7. Monitor H&H 8. Blood culture repeat are negative 9. GI/DVT prophylaxis
--- NOTE | 2022-09-16 23:22 | P.PN ---
Date of Service: 09/13/22 Subjective Doing well Physical Examination - Vital Signs reviewed - Physical Exam General: Alert, In no apparent distress, Oriented x3 Cardiovascular: RRR w/out murmur Gastrointestinal: Soft NT/ND BS positive Musculoskeletal: No C/C/E Skin: Bilateral heel wound and right hand/finger wound; dressing is clean/dry/intact Assessment & Plan - Problems (Diagnosis) (1) ESRD (end stage renal disease) Current Visit: Yes Status: Acute (2) Diabetes mellitus Current Visit: No Status: Acute (3) Hyperkalemia Current Visit: No Status: Acute (4) NSTEMI (non-ST elevated myocardial infarction) Current Visit: No Status: Acute (5) Hypothyroidism Current Visit: No Status: Chronic Qualifiers: Hypothyroidism type: acquired Qualified Code(s): E03.9 - Hypothyroidism, unspecified (6) Type 2 diabetes mellitus Current Visit: No Status: Chronic Qualifiers: Diabetes mellitus alf insulin use: with moth exterminator use Diabetes mellitus complication status: with hyperglycemia Qualified Code(s): E11.65 - Type 2 diabetes mellitus with hyperglycemia; Z79.4 - moth exterminator (current) use of insulin (7) Anemia Current Visit: No Status: Acute Qualifiers: Anemia type: due to chronic kidney disease Chronic kidney disease stage: on chronic dialysis Qualified Code(s): N18.6 - End stage renal disease; D63.1 - Anemia in chronic kidney disease; Z99.2 - Dependence on renal dialysis (8) Congestive heart failure (CHF) Current Visit: No Status: Acute (9) Obesity Current Visit: No Status: Acute - Plan POC as below: no changes noted; HD is MWF 1. Outpt IV vancomycin after HD; placement pending 2. ESRD; Nephrology for HD 3. Continue with wound care per surgery 4. Aspirin/lipitor; statin therapy and antiplatelet therapy for PAD/CAD; Aortogram and GERALDINE completed-no obvious vegetations 5. BP and BS are stable; Continue with strict control 6. PT eval appreciated 7. Monitor H&H 8. Blood culture repeat are negative 9. GI/DVT prophylaxis
--- NOTE | 2022-09-16 23:23 | P.PN ---
Date of Service: 09/14/22 Subjective Pt is stable and doing well; appeal pending; spoke with CM-and they have filed; 72hrs to hear back Physical Examination - Vital Signs reviewed - Physical Exam General: Alert, In no apparent distress, Oriented x3 Cardiovascular: RRR w/out murmur Gastrointestinal: Soft NT/ND BS positive Musculoskeletal: No C/C/E Skin: Bilateral heel wound and right hand/finger wound; dressing is clean/dry/intact Assessment & Plan - Problems (Diagnosis) (1) ESRD (end stage renal disease) Current Visit: Yes Status: Acute (2) Diabetes mellitus Current Visit: No Status: Acute (3) Hyperkalemia Current Visit: No Status: Acute (4) NSTEMI (non-ST elevated myocardial infarction) Current Visit: No Status: Acute (5) Hypothyroidism Current Visit: No Status: Chronic Qualifiers: Hypothyroidism type: acquired Qualified Code(s): E03.9 - Hypothyroidism, unspecified (6) Type 2 diabetes mellitus Current Visit: No Status: Chronic Qualifiers: 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 truck 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 manager use Diabetes mellitus complication status: with hyperglycemia Qualified Code(s): E11.65 - Type 2 diabetes mellitus with hyperglycemia; Z79.4 - [facility] (current) use of insulin (7) Anemia Current Visit: No Status: Acute Qualifiers: Anemia type: due to chronic kidney disease Chronic kidney disease stage: on chronic dialysis Qualified Code(s): N18.6 - End stage renal disease; D63.1 - Anemia in chronic kidney disease; Z99.2 - Dependence on renal dialysis (8) Congestive heart failure (CHF) Current Visit: No Status: Acute (9) Obesity Current Visit: No Status: Acute - Plan POC as below: no changes noted; HD is MWF 1. Outpt IV vancomycin after HD; placement pending 2. ESRD; Nephrology for HD 3. Continue with wound care per surgery 4. Aspirin/lipitor; statin therapy and antiplatelet therapy for PAD/CAD; Aortogram and GERALDINE completed-no obvious vegetations 5. BP and BS are stable; Continue with strict control 6. PT eval appreciated 7. Monitor H&H 8. Blood culture repeat are negative 9. GI/DVT prophylaxis
--- NOTE | 2022-09-16 23:24 | P.PN ---
Date of Service: 09/15/22 Subjective Still awaiting appeal decison; spoke with CM-and they have filed; 48hrs left to hear back Physical Examination - Vital Signs reviewed - Physical Exam General: Alert, In no apparent distress, Oriented x3 Cardiovascular: RRR w/out murmur Gastrointestinal: Soft NT/ND BS positive Musculoskeletal: No C/C/E Skin: Bilateral heel wound and right hand/finger wound; dressing is clean/dry/intact Assessment & Plan - Problems (Diagnosis) (1) ESRD (end stage renal disease) Current Visit: Yes Status: Acute (2) Diabetes mellitus Current Visit: No Status: Acute (3) Hyperkalemia Current Visit: No Status: Acute (4) NSTEMI (non-ST elevated myocardial infarction) Current Visit: No Status: Acute (5) Hypothyroidism Current Visit: No Status: Chronic Qualifiers: Hypothyroidism type: acquired Qualified Code(s): E03.9 - Hypothyroidism, unspecified (6) Type 2 diabetes mellitus Current Visit: No Status: Chronic Qualifiers: 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: with custodial use Diabetes mellitus complication status: with hyperglycemia Qualified Code(s): E11.65 - Type 2 diabetes mellitus with hyperglycemia; Z79.4 - intermediate (current) use of insulin (7) Anemia Current Visit: No Status: Acute Qualifiers: Anemia type: due to chronic kidney disease Chronic kidney disease stage: on chronic dialysis Qualified Code(s): N18.6 - End stage renal disease; D63.1 - Anemia in chronic kidney disease; Z99.2 - Dependence on renal dialysis (8) Congestive heart failure (CHF) Current Visit: No Status: Acute (9) Obesity Current Visit: No Status: Acute - Plan POC as below: no changes noted; HD is MWF; appeal to be finalized in 48hrs 1. Outpt IV vancomycin after HD; placement pending 2. ESRD; Nephrology for HD 3. Continue with wound care per surgery 4. Aspirin/lipitor; statin therapy and antiplatelet therapy for PAD/CAD; Aortogram and GERALDINE completed-no obvious vegetations 5. BP and BS are stable; Continue with strict control 6. PT eval appreciated 7. Monitor H&H 8. Blood culture repeat are negative 9. GI/DVT prophylaxis
--- NOTE | 2022-09-16 23:25 | P.PN ---
Date of Service: 09/16/22 Subjective Accepted; however, NH doesn't want to take until Sunday. Not sure as to why? Physical Examination - Vital Signs reviewed - Physical Exam General: Alert, In no apparent distress, Oriented x3 Cardiovascular: RRR w/out murmur Gastrointestinal: Soft NT/ND BS positive Musculoskeletal: No C/C/E Skin: Bilateral heel wound and right hand/finger wound; dressing is clean/dry/intact Assessment & Plan - Problems (Diagnosis) (1) ESRD (end stage renal disease) Current Visit: Yes Status: Acute (2) Diabetes mellitus Current Visit: No Status: Acute (3) Hyperkalemia Current Visit: No Status: Acute (4) NSTEMI (non-ST elevated myocardial infarction) Current Visit: No Status: Acute (5) Hypothyroidism Current Visit: No Status: Chronic Qualifiers: Hypothyroidism type: acquired Qualified Code(s): E03.9 - Hypothyroidism, unspecified (6) Type 2 diabetes mellitus Current Visit: No Status: Chronic Qualifiers: Diabetes mellitus vermin exterminator insulin use: with nursing home use Diabetes mellitus complication status: with hyperglycemia Qualified Code(s): E11.65 - Type 2 diabetes mellitus with hyperglycemia; Z79.4 - care home (current) use of insulin (7) Anemia Current Visit: No Status: Acute Qualifiers: Anemia type: due to chronic kidney disease Chronic kidney disease stage: on chronic dialysis Qualified Code(s): N18.6 - End stage renal disease; D63.1 - Anemia in chronic kidney disease; Z99.2 - Dependence on renal dialysis (8) Congestive heart failure (CHF) Current Visit: No Status: Acute (9) Obesity Current Visit: No Status: Acute - Plan POC as below: no changes noted; HD is MWF; appeal completed but NH will not take until Sunday. Unsure as to why 1. Outpt IV vancomycin after HD; placement pending 2. ESRD; Nephrology for HD 3. Continue with wound care per surgery 4. Aspirin/lipitor; statin therapy and antiplatelet therapy for PAD/CAD; Aortogram and GERALDINE completed-no obvious vegetations 5. BP and BS are stable; Continue with strict control 6. PT eval appreciated 7. Monitor H&H 8. Blood culture repeat are negative 9. GI/DVT prophylaxis
[2022-09-17] MEDS: HYDROCODONE/APAP 7.5/325 MG TAB PO PRN ×4 (03:20→20:20)
[2022-09-17] MEDS: LEVOTHYROXINE SOD 0.075 MG TAB PO SCH (05:13)
[2022-09-17] MEDS: INSULIN -REGULAR HUMAN 50 UNIT/0.5 ML ML SQ SCH ×4 (07:30→20:20)
[2022-09-17] MEDS: CLOPIDOGREL 75 MG TABLET PO SCH (08:08)
[2022-09-17] MEDS: DOCUSATE NA 100 MG CAP PO SCH ×2 (08:09→20:20)
[2022-09-17] MEDS: FOLIC ACID 1 MG TABLET PO SCH (08:09)
[2022-09-17] MEDS: SEVELAMER CARBONATE 800 MG TABLET PO SCH ×3 (08:09→17:00)
[2022-09-17] MEDS: ASPIRIN EC 81 MG TAB PO SCH (08:09)
[2022-09-17] MEDS: ENSURE MAX PROTEIN 330 ML LIQUID PO SCH ×2 (08:10→20:16)
[2022-09-17] MEDS: COLLAGENASE 30 GM OINTMENT TOP SCH (08:10)
--- NOTE | 2022-09-17 14:48 | P.PN ---
Subjective Date of Service: 09/17/22 Chief Complaint: Septic shock, hyperkalemia, ESRD Subjective Pt with ESRD , DM , admitted with fluid overload and non healing heel ulcer Today No overnight events HD tomorrow plan to discharge to SNF tomorrow Physical exam General: AAoX3 , NAD , obese HEENT: Atraumatic, Normocephalic Neck: Supple, no elevated JVD Respiratory: rt basal rales Cardiovascular: No rubs, No murmurs Gastrointestinal: Soft and benign, Non-distended leg; trace edmea, heel ulcer # ESRD on outpt HD MWF at [facility] HD today enal diet renal dose meds monitor Vancomycin level # Heel ulcer cont ABx and wound care S/p debridement Per other services # Acute on chronic diastolic heart failure HD as above # Anemia Monitor H/H # Renal osteodystrophy Monitor Ca & phos # DM2 Mngt per primary team # Hypothyroidism Levothyroxine Physical Examination - Vital Signs Temperature: 97.2 F Blood Pressure: 130/65 Pulse: 83 Respirations: 18 Pulse Ox (%): 100
[2022-09-17] MEDS: ATORVASTATIN 40 MG TAB PO SCH (20:17)
[2022-09-17] MEDS: LORATADINE 10 MG TAB PO PRN (22:07)
[2022-09-18] MEDS: HYDROCODONE/APAP 7.5/325 MG TAB PO PRN ×4 (00:13→14:07)
[2022-09-18] MEDS: LEVOTHYROXINE SOD 0.075 MG TAB PO SCH (05:12)
--- NOTE | 2022-09-18 06:10 | P.PN ---
Date of Service: 09/17/22 Subjective Patient doing well and okay to discharge to skilled nursing. Will hemodialyze tomorrow and then DC to [facility]. Physical Examination - Vital Signs reviewed - Physical Exam General: Alert, In no apparent distress, Oriented x3 Cardiovascular: RRR w/out murmur Gastrointestinal: Soft NT/ND BS positive Musculoskeletal: No C/C/E Skin: Bilateral heel wound and right hand/finger wound; dressing is clean/dry/intact Assessment & Plan - Problems (Diagnosis) (1) ESRD (end stage renal disease) Current Visit: Yes Status: Acute (2) Diabetes mellitus Current Visit: No Status: Acute (3) Hyperkalemia Current Visit: No Status: Acute (4) NSTEMI (non-ST elevated myocardial infarction) Current Visit: No Status: Acute (5) Hypothyroidism Current Visit: No Status: Chronic Qualifiers: Hypothyroidism type: acquired Qualified Code(s): E03.9 - Hypothyroidism, unspecified (6) Type 2 diabetes mellitus Current Visit: No Status: Chronic Qualifiers: 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 ferry terminal agent use Diabetes mellitus complication status: with hyperglycemia Qualified Code(s): E11.65 - Type 2 diabetes mellitus with hyperglycemia; Z79.4 - alf (current) use of insulin (7) Anemia Current Visit: No Status: Acute Qualifiers: Anemia type: due to chronic kidney disease Chronic kidney disease stage: on chronic dialysis Qualified Code(s): N18.6 - End stage renal disease; D63.1 - Anemia in chronic kidney disease; Z99.2 - Dependence on renal dialysis (8) Congestive heart failure (CHF) Current Visit: No Status: Acute (9) Obesity Current Visit: No Status: Acute - Plan POC as below: no changes noted; HD is MWF; appeal completed but NH will not take until Sunday. Unsure as to why 1. Outpt IV levaquin after HD; placement pending 2. ESRD; Nephrology for HD 3. Continue with wound care per surgery 4. Aspirin/lipitor; statin therapy and antiplatelet therapy for PAD/CAD; Aortogram and GERALDINE completed-no obvious vegetations 5. BP and BS are stable; Continue with strict control 6. PT eval appreciated 7. Monitor H&H 8. Blood culture repeat are negative 9. GI/DVT prophylaxis
[2022-09-18] MEDS ORDERED: Levofloxacin 250mg IV 250 MG/50 ML BAG IV SCH (07:00)
[2022-09-18] MEDS: INSULIN -REGULAR HUMAN 50 UNIT/0.5 ML ML SQ SCH ×2 (07:30→11:30)
[2022-09-18 08:08] VITALS: TEMP 97.2
[2022-09-18] MEDS: SEVELAMER CARBONATE 800 MG TABLET PO SCH ×2 (08:33→12:00)
[2022-09-18] MEDS: DOCUSATE NA 100 MG CAP PO SCH (08:34)
[2022-09-18] MEDS: ENSURE MAX PROTEIN 330 ML LIQUID PO SCH (08:34)
[2022-09-18] MEDS: FOLIC ACID 1 MG TABLET PO SCH (08:34)
[2022-09-18] MEDS: ASPIRIN EC 81 MG TAB PO SCH (08:34)
[2022-09-18] MEDS: COLLAGENASE 30 GM OINTMENT TOP SCH (08:35)
[2022-09-18] MEDS: CLOPIDOGREL 75 MG TABLET PO SCH (08:35)
[2022-09-18] MEDS: ONDANSETRON 4 MG/2 ML VIAL IV PRN (08:44)
--- NOTE | 2022-09-18 08:50 | P.PN ---
Subjective Date of Service: 09/18/22 Chief Complaint: Septic shock, hyperkalemia, ESRD Patient lying in bed comfortable with no major event upon examination. Plan to d/c to [facility] today Physical Examination - Vital Signs Temperature: 97.2 F Blood Pressure: 119/65 Pulse: 74 Respirations: 18 Pulse Ox (%): 99 - Physical Exam General: Alert, In no apparent distress, Oriented x3 Respiratory: Clear to auscultation bilaterally, Normal air movement Cardiovascular: Normal S1 S2 Gastrointestinal: Normal bowel sounds Musculoskeletal: Other (b/l heel diabetic ulcers and s/p right 3rd finger amputation) Integumentary: Skin lesion (multiple dried lesions in fingers and toes), Diabetic ulcer (b/l heel diabetic ulcers and s/p right 3rd finger amputation) Neurological: Other (neuropathy of all extremities) - Studies active medications Acetaminophen (Acetaminophen 500 Mg Tab) 500 mg PO Q4HP PRN PRN Reason: TEMP > 100' F Last Admin: 09/02/22 23:19 Dose: 500 mg Hydrocodone Bitart/Acetaminophen (Hydrocodone/Apap 7.5/325 Mg Tab) 1 tab PO Q4H PRN PRN Reason: Pain scale 8-10 (Severe) Last Admin: 09/18/22 08:34 Dose: 1 tab Albuterol Sulfate (Albuterol 2.5 Mg/3 Ml Neb Sonia) 2.5 mg NEB [id number] PRN PRN Reason: SHORTNESS OF BREATH Aspirin (Aspirin Ec 81 Mg Tab) 81 mg PO DAILY [facility] Last Admin: 09/18/22 08:34 Dose: 81 mg Atorvastatin Calcium (Atorvastatin 40 Mg Tab) 40 mg PO BEDTIME [facility] Last Admin: 09/17/22 20:17 Dose: 40 mg Clopidogrel Bisulfate (Clopidogrel 75 Mg Tablet) 75 mg PO DAILY [facility] Last Admin: 09/18/22 08:35 Dose: 75 mg Collagenase (Collagenase 30 Gm Ointment) 1 appl TOP DAILY [facility] Last Admin: 09/18/22 08:35 Dose: 1 appl Docusate Sodium (Docusate Na 100 Mg Cap) 100 mg PO BID [facility] Last Admin: 09/18/22 08:34 Dose: 100 mg Epoetin Derrick (Epoetin Derrick 10,000 Unit/Ml Vial) 10,000 unit IV EVERY HD [facility] Last Admin: 09/13/22 17:00 Dose: 10,000 unit Folic Acid (Folic Acid 1 Mg Tablet) 1 mg PO DAILY [facility] Last Admin: 09/18/22 08:34 Dose: 1 mg Sodium Chloride (Sodium Chloride) 250 mls @ 0 mls/hr IV .Q0M [facility] Levofloxacin/Dextrose (Levaquin 250mg/50 Ml Ivpb) 250 mg in 50 mls @ 50 mls/hr IV Q24H [facility]; Protocol Last Admin: 09/18/22 07:33 Dose: 50 mls Insulin Human Regular (Insulin -Regular Human 50 Unit/0.5 Ml Ml) 0 unit SQ ACHS [facility]; Protocol Last Admin: 09/18/22 07:30 Dose: Not Given Levothyroxine Sodium (Levothyroxine Sod 0.075 Mg Tab) 0.15 mg PO DAILYAC [facility] Last Admin: 09/18/22 05:12 Dose: 0.15 mg Loratadine (Loratadine 10 Mg Tab) 10 mg PO DAILY PRN PRN Reason: ALLERGIES Last Admin: 09/17/22 22:07 Dose: 10 mg Ondansetron HCl (Ondansetron 4 Mg/2 Ml Vial) 4 mg IV Q6HP PRN PRN Reason: NAUSEA / VOMITING Last Admin: 09/18/22 08:44 Dose: 4 mg Prochlorperazine (Prochlorperazine 5 Mg Tab) 5 mg PO Q6H PRN PRN Reason: NAUSEA / VOMITING Last Admin: 09/10/22 21:07 Dose: 5 mg Sevelamer Carbonate (Sevelamer Carbonate 800 Mg Tablet) 2,400 mg PO TIDWM [facility] Last Admin: 09/18/22 08:33 Dose: 2,400 mg Sodium Chloride (Flush Normal Saline 10 Ml) 10 ml IV BID [facility] Last Admin: 09/18/22 08:34 Dose: 10 ml Microbiology Data (last 24 hrs): Microbiology 08/26/22 23:27 Wound - Left Heel Gram Stain - Final 08/26/22 23:27 Wound - Left Heel Culture & Sensitivity - Final Pseudomonas Aeruginosa Staph Aureus 08/26/22 23:26 Wound - Right Heel Gram Stain - Final 08/26/22 23:26 Wound - Right Heel Culture & Sensitivity - Final Pseudomonas Aeruginosa Staph Aureus 08/26/22 19:07 Blood - Blood Aerobic Blood Culture - Final Staph Aureus 08/26/22 19:07 Blood - Blood Blood Culture Gram Stain - Final 08/26/22 19:07 Blood - Blood Anaerobic Blood Culture - Final Staph Aureus 08/26/22 19:07 Blood - Blood Gram Stain - Final 08/26/22 19:36 Blood - Blood Aerobic Blood Culture - Final Staph Aureus 08/26/22 19:36 Blood - Blood Blood Culture Gram Stain - Final 08/26/22 19:36 Blood - Blood Anaerobic Blood Culture - Final Staph Aureus 08/26/22 19:36 Blood - Blood Gram Stain - Final Assessment And Plan - Current Problems (Diagnosis) (1) Bacteremia Plan: Cultures: - 09/01 and 09/03 BC: Negative - 08/27 BC: Staph aureus, susceptible to Vancomycin and Levofloxacin - 08/26 BC: Staph aureus, susceptible to Vancomycin and Levofloxacin Antibiotics: - Current on IV Vancomycin for HD and Levaquin (09/04- ) Recommendations: - Continue IV Levaquin Q48H for total of 4 weeks duration from 09/01 (repeated BC negative) (2) Diabetic foot ulcers Plan: Cultures: - 08/26 Right heel: Staph aureus and Pseudomonas aeruginosa, susceptible to Vancomycin and Levofloxacin - 08/26 Left heel: Staph aureus and Pseudomonas aeruginosa, susceptible to Vancomycin and Levofloxacin Antibiotics: - Current on IV Vancomycin for HD and Levaquin (09/04- ) Recommendations: - Continue IV Levaquin Q48H for total of 4 weeks duration - Hyperbaric oxygen therapy of heels and fingers - LTAC placement for aggressive antibiotics management 08/30: Dr. Peterson had excisional debridement of right heel ulcer 09/13 Dr. 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 Hayes performed amputation of the right middle finger at the middle phalanx level with flap closure - Plan - Septic shock secondary to diabetic/pressure ulcerations bilateral heels: Continue antibiotics for total of 4 weeks - Dry gangrene of right middle finger s/p amputation (09/05) - NSTEMI with underlying CAD/recent heart cath with PCI - ESRD on HD MWF with noncompliance/hyperkalemia - Diabetes mellitus type 2insulin-dependent - Chronic diastolic congestive heart failure - Severe protein calorie malnutrition - Anemia of chronic disease - Hypertension - Hypothyroidism with thyroidectomy - hyperlipidemia - Depression - Paralyzed Stomach - Neuropathy - CAD - Back fusion - Bilateral total knee replacements - Cholecystectomy ID will monitor the patient closely for signs of infection with fever and WBC trends Case has been discussed with Dr. Leblanc N
--- NOTE | 2022-09-18 09:32 | P.DS ---
Discharge Date: 09/18/22 Disposition: TRANSFER TO [facility] Discharge Condition: GOOD Reason for Admission: Septic shock, hyperkalemia, ESRD - Problems (1) ESRD (end stage renal disease) Current Visit: Yes Status: Acute (2) Diabetes mellitus Current Visit: No Status: Acute (3) Hyperkalemia Current Visit: No Status: Acute (4) NSTEMI (non-ST elevated myocardial infarction) Current Visit: No Status: Acute (5) Hypothyroidism Current Visit: No Status: Chronic Qualifiers: Hypothyroidism type: acquired Qualified Code(s): E03.9 - Hypothyroidism, unspecified (6) Type 2 diabetes mellitus Current Visit: No Status: Chronic Qualifiers: Diabetes mellitus longterm insulin use: with bed bug exterminator use Diabetes mellitus complication status: with hyperglycemia Qualified Code(s): E11.65 - Type 2 diabetes mellitus with hyperglycemia; Z79.4 - half-way (current) use of insulin (7) Anemia Current Visit: No Status: Acute Qualifiers: Anemia type: due to chronic kidney disease Chronic kidney disease stage: on chronic dialysis Qualified Code(s): N18.6 - End stage renal disease; D63.1 - Anemia in chronic kidney disease; Z99.2 - Dependence on renal dialysis (8) Congestive heart failure (CHF) Current Visit: No Status: Acute (9) Obesity Current Visit: No Status: Acute Brief History of Present Illness: Pt is a 67-year-old female with history of ESRD on HD MWF, CAD with recent PCI, anemia chronic disease, insulin-dependent diabetes, hypertension, hypothyroidism presents to the emergency department for shortness of breath, fever. She reports she was last able to go to dialysis on Sunday missing Sunday and Sunday, started running fever yesterday patient reports Tmax 101. Patient was evaluated in the emergency department labs were significant for leukocytosis white blood cell count 19.5 hemoglobin 8.8 hematocrit 27.3 potassium 5.9 creatinine 6.05 BUN 79 lactic acid 3.6 troponin high-sensitivity 535.8 BNP 96,991 procalcitonin 8.72 urine negative for signs of infection chest x-ray initially showed questionable early right pneumonia but follow-up CT chest abdomen pelvis without contrast showed mosaic lung attenuation which could indicate small airway disease or hypoventilation no evidence of pneumonia. No acute intra-abdominal abnormality. Patient was noted to have wounds to bilateral heels with surrounding cellulitis which I believe is the source of her current infection. She was treated for the hyperkalemia in the ED with 100 mg IV Lasix, insulin, dextrose, Kayexalate, albuterol. She is given antibiotics with vancomycin/cefepime. Her blood pressure did drop later during her ED stay unsure if this is related to septic shock or IV Lasix, she had 2 systolic blood pressures less than 90 meeting criteria for septic shock. Given her ESRD with multiple missed dialysis sessions and generalized edema 30 cc/kg IV fluid bolus was not given although we are giving small boluses of 250 cc repeated as necessary to ensure she does not become grossly overloaded. Clinic to admit to ICU for further management. Vital Signs/Physical Exam: Temp Pulse Resp BP Pulse Ox 97.2 F 74 18 119/65 99 09/18/22 08:50 09/18/22 08:50 09/18/22 08:50 09/18/22 08:50 09/18/22 08:50 General: Alert, In no apparent distress, Oriented x3 Laboratory Data at Discharge: WBC 9.40 K/uL (4.3-10.9) 09/13/22 05:43 Hgb 8.7 g/dL (12.0-15.0) L 09/13/22 05:43 Hct 26.2 % (36.0-45.0) L 09/13/22 05:43 Plt Count 210 K/uL (152-406) 09/13/22 05:43 PT 15.1 SECONDS (9.5-12.5) H 08/26/22 18:53 INR 1.37 08/26/22 18:53 APTT 29.9 SECONDS (24.3-36.9) 08/26/22 18:53 Sodium 133 mmol/L (136-145) L 09/13/22 05:43 Potassium 4.4 mmol/L (3.5-5.1) 09/13/22 05:43 BUN 45 mg/dL (7-18) H 09/13/22 05:43 Creatinine 6.19 mg/dL (0.55-1.02) H* 09/13/22 05:43 Glucose 139 mg/dL (74-106) H 09/13/22 05:43 Phosphorus 4.6 mg/dL (2.5-4.9) 09/13/22 05:43 Magnesium 2.4 mg/dL (1.6-2.4) 09/13/22 05:43 Total Bilirubin 0.6 mg/dL (0.2-1.0) 09/12/22 07:03 AST 12 U/L (15-37) L 09/12/22 07:03 ALT 13 U/L (13-56) 09/12/22 07:03 Alkaline Phosphatase 207 U/L (45-117) H 09/12/22 07:03 Triglycerides 151 mg/dL (<150) H 08/27/22 04:31 Cholesterol 96 mg/dL (<200) 08/27/22 04:31 HDL Cholesterol 21 mg/dL (40-60) L 08/27/22 04:31 Cholesterol/HDL Ratio 4.57 08/27/22 04:31 Lipase 78 U/L (73-393) 08/26/22 18:53 Home Medications: Atorvastatin Calcium [Lipitor] 40 mg PO BEDTIME 11/17/19 Furosemide 80 mg PO DAILY 09/03/20 Lisinopril [Zestril] 5 mg PO DAILY 09/03/20 Loratadine [Claritin*] 10 mg PO DAILY 09/03/20 Pantoprazole [Protonix Tab*] 40 mg PO BIDAC 30 Days #60 tab 10/20/21 Buspirone HCl [Buspar*] 5 mg PO BID 06/11/22 Levothyroxine Sodium 150 mcg PO DAILY 06/11/22 Metoprolol Succinate [Toprol Xl*] 12.5 mg PO BID 6AM 6PM tab 06/21/22 Aspirin [Aspirin EC 81 MG] 1 tab PO DAILY 08/12/22 Cholecalciferol (Vitamin D3) [Vitamin D 1000 Iu Tab*] 1 cap PO DAILY 08/12/22 Clopidogrel Bisulfate [Plavix*] 75 mg PO DAILY 30 Days #30 tab 08/12/22 Insulin Glargine,Hum.rec.anlog [Lantus] 50 units SQ BID 08/12/22 Amlodipine Besylate 10 mg PO DAILY 08/27/22 Insulin Lispro [Humalog Tee Kwikpen] 100 units SQ DIRECTED 08/27/22 Midodrine HCl 5 mg PO PRN 08/27/22 Sevelamer Carbonate 800 mg PO TID 08/27/22 buPROPion HCL [Bupropion HCl Sr] 150 mg PO DAILY 08/27/22 calcitrioL [Rocaltrol] 0.25 mcg PO DAILY 08/27/22 Clopidogrel Bisulfate [Plavix*] 75 mg PO DAILY #30 tab 09/16/22 Collagenase [Santyl Ointment*] 1 appl TOP DAILY #1 tube 09/16/22 Cyclobenzaprine [Flexeril] 10 mg PO TID PRN #30 tab 09/16/22 Docusate [Colace Cap*] 100 mg PO BID #60 cap 09/16/22 Ensure Max Protein 330 ml PO BID #60 can 09/16/22 Hydrocodone 7.5/APAP 325 [[place] 7.5/325 mg*] 1 tab PO Q6HP PRN #30 tab 09/16/22 New Medications: Docusate [Colace Cap*] 100 mg PO BID #60 cap Ensure Max Protein 330 ml PO BID #60 can Cyclobenzaprine [Flexeril] 10 mg PO TID PRN #30 tab PRN Reason: Muscle Spasms Hydrocodone 7.5/APAP 325 [[place] 7.5/325 mg*] 1 tab PO Q6HP PRN #30 tab PRN Reason: Pain Scale 8-10 (Severe) Clopidogrel Bisulfate [Plavix*] 75 mg PO DAILY #30 tab Collagenase [Santyl Ointment*] 1 appl TOP DAILY #1 tube Diet: Renal Activity: Non-weight bearing (to surgical site) Followup: Avtar Peterson MD [ACTIVE - CAN ADMIT] - Dann Hernandez DO [Primary Care Provider] -
[2022-09-18 10:22] VITALS: O2SAT 99
[2022-09-18 12:38] VITALS: BP 119/65
[2022-09-18] MEDS: EPOETIN ALFA 10,000 UNIT/ML VIAL IV SCH (12:45)
[2022-09-18] MEDS: LORATADINE 10 MG TAB PO PRN (14:08)
--- NOTE | 2022-09-19 00:19 | PN ---
Date of Progress Note: 09/18/2022 Chief Complaint: End-stage renal disease, the patient is on dialysis. Subjective.: She is dialyzing today and she has history of congestive heart failure, fluid overload. Although she responded to ultrafiltration and peripheral edema is improving, she was primarily admi tted for fluid overload and nonhealing heel ulcer. Review of Systems: Denies fever or chills. Physical Examination: Lungs: Clear to auscultation bilaterally. Heart: S1, S2. Abdomen: Soft. Extremities: No edema. Dressing in place. Impression And Plan: 1.End-stage renal disease. Continue dialysis on Sunday, Sunday, and Sunday. Continue low-sodium diet and p.o. fluid restriction to prevent fluid overload. 2.Heel ulcer on antibiotics, status post debridement. 3.Hyiyc-ti-plguhcd diastolic congestive heart failure. Dialysis will be done with ultrafiltration 3 times per week for volume control. Monitor daily weight. 4.Renal osteodystrophy. Monitor calcium and phosphorus and continue binders. 5.Diabetes mellitus. Continue insulin management per primary team. EB/MODL Voice ID: [id number] Report ID: [id number]
[2022-09-19] MEDS ORDERED: levoFLOXacin 250 MG TAB PO SCH (09:00)
== END 2022-09-18 18:41 | DRG 853 ==
LOC: ER 18:41 → ERHOLD 23:37 → 4TH 08-29 02:13
PROVIDERS: ADMIT Internal Medicine; ATTEND Hospitalist
PROC: 5A1D70Z Performance of Urinary Filtration, Intermittent, Less than 6 Hours Per Day (ICD-10-PCS; 2022-08-27)
PROC: 30233N1 Transfusion of Nonautologous Red Blood Cells into Peripheral Vein, Percutaneous Approach (ICD-10-PCS; 2022-08-29)
PROC: 0JBQ0ZZ Excision of Right Foot Subcutaneous Tissue and Fascia, Open Approach (ICD-10-PCS; principal; 2022-08-30 11:00)
PROC: B24BZZ4 Ultrasonography of Heart with Aorta, Transesophageal (ICD-10-PCS; 2022-08-31)
PROC: B41G1ZZ Fluoroscopy of Left Lower Extremity Arteries using Low Osmolar Contrast (ICD-10-PCS; 2022-08-31)
PROC: 0X6Q0Z2 Detachment at Right Middle Finger, Mid, Open Approach (ICD-10-PCS; 2022-09-05)
PROC: 0JBQ0ZZ Excision of Right Foot Subcutaneous Tissue and Fascia, Open Approach (ICD-10-PCS; 2022-09-13)
DX: A41.01 Sepsis due to Methicillin susceptible Staphylococcus aureus (principal); E43 Unspecified severe protein-calorie malnutrition; I21.4 Non-ST elevation (NSTEMI) myocardial infarction; N18.6 End stage renal disease; R65.21 Severe sepsis with septic shock; I50.33 Acute on chronic diastolic (congestive) heart failure; L03.116 Cellulitis of left lower limb; L03.115 Cellulitis of right lower limb; Z68.41 Body mass index [BMI] 40.0-44.9, adult; I13.2 Hypertensive heart and chronic kidney disease with heart failure and with stage 5 chronic kidney disease, or end stage renal disease; E11.52 Type 2 diabetes mellitus with diabetic peripheral angiopathy with gangrene; E87.1 Hypo-osmolality and hyponatremia; N25.81 Secondary hyperparathyroidism of renal origin; A41.52 Sepsis due to Pseudomonas; E66.9 Obesity, unspecified; E11.22 Type 2 diabetes mellitus with diabetic chronic kidney disease; E11.621 Type 2 diabetes mellitus with foot ulcer; L97.521 Non-pressure chronic ulcer of other part of left foot limited to breakdown of skin; L97.511 Non-pressure chronic ulcer of other part of right foot limited to breakdown of skin; D63.1 Anemia in chronic kidney disease; E11.65 Type 2 diabetes mellitus with hyperglycemia; K31.84 Gastroparesis; N25.0 Renal osteodystrophy; E11.43 Type 2 diabetes mellitus with diabetic autonomic (poly)neuropathy; E03.9 Hypothyroidism, unspecified; E78.5 Hyperlipidemia, unspecified; F32.A Depression, unspecified; E87.70 Fluid overload, unspecified; E87.5 Hyperkalemia; L89.629 Pressure ulcer of left heel, unspecified stage; L89.619 Pressure ulcer of right heel, unspecified stage; I25.10 Atherosclerotic heart disease of native coronary artery without angina pectoris; I25.2 Old myocardial infarction; R77.8 Other specified abnormalities of plasma proteins; R31.29 Other microscopic hematuria; Z95.5 Presence of coronary angioplasty implant and graft; Z79.4 Long term (current) use of insulin; Z88.8 Allergy status to other drugs, medicaments and biological substances; Z99.2 Dependence on renal dialysis; Z88.5 Allergy status to narcotic agent; Z91.15 Patient's noncompliance with renal dialysis; Z79.02 Long term (current) use of antithrombotics/antiplatelets; Z90.49 Acquired absence of other specified parts of digestive tract; Z98.61 Coronary angioplasty status; Z79.82 Long term (current) use of aspirin; Z91.048 Other nonmedicinal substance allergy status; Z79.890 Hormone replacement therapy; Z79.899 Other long term (current) drug therapy; Z96.653 Presence of artificial knee joint, bilateral; Z20.822 Contact with and (suspected) exposure to COVID-19
CPT/HCPCS: 0240U; 36200; 36415; 71045; 71260; 74177; 75710; 80048; 80053; 80061; 80202; 81003; 81015; 82805; 82947; 83036; 83605; 83690; 83735; 83880; 83970; 84100; 84145; 84439; 84443; 84484; 85025; 85610; 85730; 86140; 86850; 86900; 86901; 87040; 87070; 87075; 87077; 87186; 87205; 88304; 88305; 90935; 93005; 93306; 93312; 93925; 93970; 97110; 97161; 99285; A4216; C1893; J0461; J0692; J1100; J1170; J1644; J1815; J2001; J2250; J2270; J2310; J2405; J2704; J3010; J3370; J3590; J7040; J7050; J7613; P9016; P9047; Q0164; Q5106; Q9967; U0003

== ENCOUNTER 2022-09-28 08:08 | Emergency (ER) | payer OTHER ==
--- OUTSIDE RECORDS SUMMARY | 2022-09-28 08:22 | XMS REPORT | Continuity of Care Document ---
:1955 Author Organization [facility] t Address [address] [facility] [address] [place] [id number] Care Team Providers Name Role Phone SABRINA [...] Unavailable Yvan BURROUGHS, Jory Nguyen Attending Clinician [phone] Mao ARIAS, Corrina To Attending Clinician [phone] Doctor Unassigned, [place] Attending Clinician Unavailable Funmi Allen MA Attending [...] Effective Date Expiration Date S tacos TANESHA/FRANKI [id number] 2020 MCARE ADV 00:00:00 CHOICE PPO MEDICARE PART A [id number] 2020 \\T\\ B 00:00:00 [employer] MEDICARE 53 [id number] 2021 Common Sp rachelle 00:00:00 [facility] Problems Condition Condition Condition Status Onset Resolution Last Treating Co mments Source Name Details Category Date Date Treatment Clinician Date CKD CKD Disease Active Overview: Method i (chronic (chronic 5-10 Formattin kidney kidney 00:00: g of this Hospita disease), disease), 00 note l stage V stage V might be different from the original. Added automatic ally from request for surgery [id number] ESRD (end ESRD (end Disease Active 2019-07 Met hodi stage stage 1-05 st renal renal 00:00: Hospita disease) disease) 00 l on on dialysis dialysis [id number] Unsteady Problem Commo n gait [facility] Arrhythmia Arrhythmia Problem C ommon [facility] [id number] Retinopath Problem Com mon y [facility] [id number] Seasonal Problem Comm on allergies [facility] [id number] PUD Problem Common (peptic Spirit ulcer - CHI disease) [facility] [id number] Body mass Problem Com mon index Spirit [BMI] - CHI 38.0-38.9, [facility] [id number] Diabetic Problem Comm on polyneurop Spirit athy - CHI associated St with type [facility] 2 diabetes Medica l mellitus Center [id number] Morbid Problem Commo n 9104 (severe) Spirit obesity - CHI due to [facility] [id number] Type 2 Problem Common diabetes Spirit mellitus - CHI with diabetic [facility] chronic Medical kidney Center disease Secondary Secondary Problem Com mon hyperparat hyperparat Sp rachelle hyroidism hyroidism, - C HI not St elsewhere [facility] classified Medica l Center Athscl Athscl Problem Common [place] Spirit arteries arteries - [facility] of [facility] w s w Medical ulceration ulceration Ce nter Non-pressu Non-pressu Problem C ommon re chronic re chronic Sp rachelle ulcer of ulcer of - CHI other part other part St of right of right [facility] foot with foot with Medi jose unspecifie unspecifie Ce nter d severity d severity Chronic Chronic Problem Common congestive diastolic Spi rit heart CHF - CHI failure (congestiv [facility] heart [facility] failure) Medical [facility] [id number] Stented Problem Commo n coronary Spirit artery - [facility] [id number] PAD Problem Common (periphera Spirit l artery - CHI disease) [facility] [id number] Coronary Problem Commo n artery Spirit disease - CHI involving [facility] coronary Medical artery of Center [place] heart, unspecifie d whether angina present [id number] Oxygen Problem Commo n 07 dependent [facility] - [facility] [id number] Anemia in Problem Com mon chronic Spirit illness - [facility] Allergic Non-season Problem Com mon rhinitis al Spirit allergic - CHI rhinitis, unspecifie [facility] d Medical chronicity Center , unspecifie d trigger Dependence Dialysis Problem Com mon on renal patient Spirit dialysis - [facility] Anxiety Anxiety Problem Common about about Spirit health health - [facility] [id number] End stage Problem Comm on renal Spirit disease - [facility] Hypothyroi Hypothyroi Problem C ommon dism dism Spirit - [facility] Cholelithi Gall Problem Commo n asis bladder Spirit without stones - [facility] obstructio [facility] Hypertensi Hypertensi Problem C ommon on on [facility] Type II Uncontroll Problem Comm on diabetes ed type 2 Spiri t mellitus diabetes - [facility] without mellitus St complicati with [facility] insulin Medical therapy Center Mixed Mixed Problem Common hyperlipid hyperlipid Sp rachelle emia emia - [facility] Gastroesop GERD Problem Commo n hageal (gastroeso Spirit reflux phageal - [facility] disease reflux St disease) [facility] Vitamin D Vitamin D Problem Com mon deficiency deficiency Sp rachelle [facility] Carpal Carpal Problem Resolve 2021-08-25 Mem oria [...] ents Source Name Type Date Date Clinician Prometha Propensi Active Other (See Cold Me thodi zine [...] U 2000-07 [facility] 08-06 Clear 00:00: [facility] CODEINE DA Active U HALLUCINATIO 2000-07 [facility] N 08-06 Clear 00:00: [facility] No Known DA Active U 2000-07 [facility] Contrast 08-06 Clear Allergie 00:00: Hernandez s [facility] No Known DA Active U 2000-07 [facility] Food 08-06 Clear Allergie 00:00: Hernandez s [facility] No Known DA Active U 2000-07 [facility] Other 08-06 Clear Allergie 00:00: Hernandez s [facility] Opioids Propensi Active Rash Hallucina Meth deonte - ty to 6-17 tions ( st Morphine adverse 00:00: [facility] Analogue reaction 00 craw over l s s to body).Oth drug er reaction( s): Anaphylax ishalluci nations codeine codeine Active [facility]oria l [facility] Phenerga Phenerga Active Memori a n n l [facility] Tape Tape Active Memoria l [facility] NO KNOWN Drug Active Univers ALLERGIE Class ity of S [facility] prometha prometha Active Unknown Commo n zine zine [facility] codeine codeine Active Unknown Common [facility] Family History Family Member Diagnosis Comments Start Date Stop Date Source Natural father Heart disease [facility] Natural father Hypertension [facility] Natural father [facility] Natural mother Diabetes [facility] Natural mother Hyperlipidemia [facility] Natural mother Hypertension [facility] Natural mother Kidney disease [facility] Social History Social Habit Start Date Stop Date Quantity Comments Source History of Tobacco Common Spirit - Use [facility] Exposure to Not sure University of SARS-CoV-2 (event) [facility] Alcohol intake 2022-04-27 2022-04-27 Current drinker Metho dist 00:00:00 00:00:00 of [facility] (finding) Tobacco use and 2022-04-26 2022-04-26 Smokeless [facility] exposure 00:00:00 00:00:00 tobacco non-user [facility] Cigarettes smoked 2022-04-26 2022-04-[address] current (pack per 00:00:00 00:00:00 Hospita l day) - Reported Cigarette 2022-04-26 2022-04-26 [facility] pack-years 00:00:00 00:00:00 Hospital Social History 2021-02-23 2021-02-23 [facility] 20:24:04 20:24:04 Alcohol Comment 2020-03-23 2020-03-23 RARELY [facility] 00:00:00 00:00:00 Hospital Sex Ass[birth year] At [birth year] [facility] 00:00:00 00:00:00 Hospital Smoking Status Start Date Stop Date Source Unknown if ever smoked [facility] Former Smoker 2022-08-11 00:00:00 2022-08-11 00:00:00 Common S pirit - [facility] Never smoked tobacco [facility] Medications Ordered Filled Start Stop Current Ordering [...] 00 daily. l (DIALYVITE ORAL) famotidine 2021-07 No 40mg QD Take 40 mg Methodi (PEPCID) 10 0-19 10-[address] MG tablet 08:16: 00:00 nightly as H ospita 33 :00 needed for l heartburn. famotidine 2021-07 No 40mg QD Take 40 mg [facility] (PEPCID) 10 0-19 10-[address] MG tablet 08:16: 00:00 nightly as H ospita 33 :00 needed for l heartburn. famotidine 2021-07- No 40mg QD Take 40 mg Methodi [...] :00 needed for l heartburn. traMADoL 2021-07 [id number] 50mg Q8H Take 1 Metho di (Ultram) 50 0-19 10-25 tablet (50 s t mg tablet 00:00: 04:59 mg total) Ho spita 00 :00 by mouth l every 8 (eight) hours as needed for moderate pain for up to 5 days .acute pain. traMADoL 2021-07 [id number] 50mg Q8H Take 1 Metho di (Ultram) 50 0-19 10-25 tablet (50 s t mg tablet 00:00: 04:59 mg total) Ho spita 00 :00 by mouth l every 8 (eight) hours as needed for moderate pain for up to 5 days .acute pain. traMADoL 2021-07 [id number] 50mg Q8H Take 1 Metho di (Ultram) 50 0-19 10-25 tablet (50 s t mg tablet 00:00: 04:59 mg total) Ho spita 00 :00 by mouth l every 8 (eight) hours as needed for moderate pain for up to 5 days .acute pain. traMADoL 2021-07 [id number] 50mg Q8H Take 1 Metho di (Ultram) 50 0-19 10-25 tablet (50 s t mg tablet 00:00: 04:59 mg total) Ho spita 00 :00 by mouth l every 8 (eight) hours as needed for moderate pain for up to 5 days .acute pain. traMADoL 2021-07 No [id number] 50mg Q8H Take 1 Metho di (Ultram) 50 0-19 10-25 tablet (50 s t mg tablet 00:00: 04:59 mg total) Ho spita 00 :00 by mouth l every 8 (eight) hours as needed for moderate pain for up to 5 days .acute pain. famotidine 2021- Yes 40mg QD Take 1 Metho di (PEPCID) 40 0-02 tablet (40 st MG tablet 00:00: mg total) Hos tena 00 by mouth l nightly. famotidine 2021- Yes 40mg QD Take 1 Metho di (PEPCID) 40 0-02 tablet (40 st MG tablet 00:00: mg total) Hos tena 00 by mouth l nightly. famotidine 2021- Yes 40mg QD Take 1 Metho di (PEPCID) 40 0-02 tablet (40 st MG tablet 00:00: mg total) Hos tena 00 by mouth l nightly. famotidine 2021- Yes 40mg QD Take 1 Metho di (PEPCID) 40 0-02 tablet (40 st MG tablet 00:00: mg total) Hos tena 00 by mouth l nightly. famotidine 2021-07 Yes 40mg QD Take 1 Metho di (PEPCID) 40 0-02 tablet (40 st MG tablet 00:00: mg total) Hos tena 00 by mouth l nightly. lactulose 2-0 Yes Q.5D Take by Metho di (CHRONULAC) [address] 10 gram/15 00:00: (two) Hospit a mL solution 00 times a l day. lactulose 2022-0 Yes Q.5D Take by Metho di (CHRONULAC) [address] 10 gram/15 00:00: (two) Hospit a mL solution 00 times a l day. lactulose 2022-0 Yes Q.5D Take by Metho di (CHRONULAC) 9-[address] 10 gram/15 00:00: (two) Hospit a mL solution 00 times a l day. lactulose 2022-0 Yes Q.5D Take by Metho di (CHRONULAC) [address] 10 gram/15 00:00: (two) Hospit a mL solution 00 times a l day. lactulose 2022-0 Yes Q.5D Take by Metho di (CHRONULAC) 03-[address] 10 gram/15 00:00: (two) Hospit a mL solution 00 times a l day. ciprofloxac 2021- No TAKE 1 Met hodi in HCl 9-13 10-[address] (CIPRO) 250 00:00: 00:00 MOUTH [facility] MG tablet 00 :00 TWICE l DAILY UNTIL ALL TAKEN. ciprofloxac 2021- No TAKE 1 Met hodi in HCl 9- 10-[address] (CIPRO) 250 00:00: 00:00 MOUTH [facility] MG tablet 00 :00 TWICE l DAILY UNTIL ALL TAKEN. ciprofloxac No TAKE 1 Met hodi in HCl 9-[address] (CIPRO) 250 00:00: 00:00 MOUTH [facility] MG tablet 00 :00 TWICE l DAILY UNTIL ALL TAKEN. ciprofloxac No TAKE 1 Met hodi in HCl -04-[address] (CIPRO) 250 00:00: 00:00 MOUTH [facility] MG tablet 00 :00 TWICE l DAILY UNTIL ALL TAKEN. ciprofloxac No TAKE 1 Met hodi in HCl 9- 10-[address] (CIPRO) 250 00:00: 00:00 MOUTH [facility] MG tablet 00 :00 TWICE l DAILY UNTIL ALL TAKEN. traMADoL [id number] 50mg Q8H Take 1 Metho di (Ultram) 50 03-06 tablet (50 s t mg tablet 00:00: 04:59 mg total) Ho spita 00 :00 by mouth l every 8 (eight) hours as needed for moderate pain for up to 5 days .acute pain. traMADoL 2021- No [id number] 50mg Q8H Take 1 Metho di (Ultram) 50 03-06-04 tablet (50 s t mg tablet 00:00: 04:59 mg total) Ho spita 00 :00 by mouth l every 8 (eight) hours as needed for moderate pain for up to 5 days .acute pain. traMADoL 2021- No [id number] 50mg Q8H Take 1 Metho di (Ultram) 50 03-06-04 tablet (50 s t mg tablet 00:00: 04:59 mg total) Ho spita 00 :00 by mouth l every 8 (eight) hours as needed for moderate pain for up to 5 days .acute pain. traMADoL 2021-0 2021- No [id number] 50mg Q8H Take 1 Metho di (Ultram) 50 03-06-04 tablet (50 s t mg tablet 00:00: 04:59 mg total) Ho spita 00 :00 by mouth l every 8 (eight) hours as needed for moderate pain for up to 5 days .acute pain. traMADoL 2021-0 2021- No [id number] 50mg Q8H Take 1 Metho di (Ultram) 50 03-06- tablet (50 s t mg tablet 00:00: 04:59 mg total) Ho spita 00 :00 by mouth l every 8 (eight) hours as needed for moderate pain for up to 5 days .acute pain. ibuprofen 2022-0 Yes Methodi (ADVIL) 600 8-22 st MG tablet 00:00: Hospita 00 l ibuprofen 2022-0 Yes [facility] (ADVIL) 600 8-22 st MG tablet 00:00: Hospita 00 l ibuprofen 2022-0 Yes [facility] (ADVIL) 600 8-22 st MG tablet 00:00: Hospita 00 l ibuprofen 2022-0 Yes [facility]i (ADVIL) 600 8-22 st MG tablet 00:00: Hospita 00 l ibuprofen 2022-0 Yes [facility]i (ADVIL) 600 8-22 st MG tablet 00:00: Hospita 00 l amoxicillin 2022-0 2022- No Metho di [...] Hospita capsule 00 :00 l amoxicillin 2022-0 2021- No Metho di (AMOXIL) 8-22 10-17 st [...] 00:00: Hospit a 00 l ciprofloxac 2021-0 2021- No 500mg QD Take 500 [facility] in HCl 6-06 06-[address] (CIPRO 15:13: 00:00 mouth Hospita ORAL) 12 :00 daily. For l 2 more days ciprofloxac 2021-0 2022- No 500mg QD Take 500 [facility] in HCl 6-06 06-[address] (CIPRO 15:13: 00:00 mouth Hospita ORAL) 12 :00 daily. For l 2 more days ciprofloxac 2021-0 2022- No 500mg QD Take 500 [facility]i in HCl 6-06 06-[address] (CIPRO 15:13: 00:00 mouth Hospita ORAL) 12 :00 daily. For l 2 more days ciprofloxac 2021-0 2022- No 500mg QD Take 500 Methodi in HCl 6-06 06-[address] (CIPRO 15:13: 00:00 mouth Hospita ORAL) 12 :00 daily. For l 2 more days ciprofloxac 2021-0 2022- No 500mg QD Take [...] gram 00:00: Hospita packet 00 l Adult 2020- Yes 325 mg = 1 Memori a [...] Silver 8-18 0 l Ultra 20:29: Refill(s) [facility] Claritin Yes 10 mg = 1 Jairo [...] Silver 8-18 0 l Ultra 20:29: Refill(s) [facility] Claritin Yes 10 mg = 1 Jairo [...] Silver 8-18 0 l Ultra 20:29: Refill(s) [facility] Claritin Yes 10 mg = 1 Jairo frida 8-18 tab, PO, l 20:29: Daily, PRN Lewis 00 Itching / rash / allergy symptoms, # 20 tab, 0 Refill(s) Stool Yes PO, Memoria Softener 8-18 Bedtime, 0 l with 20:29: Refill(s) [facility] Laxative aspirin-ome No 1 tab, PO, Memoria prazole 325 8-18 Daily, 0 l mg-40 mg 20:29: Refill(s) Herm joss oral 00 delayed release tablet Centrum Yes PO, Daily, Jairo frida Silver 8-18 0 l Ultra 20:29: Refill(s) [facility] Claritin Yes 10 mg = 1 Jairo [...] Silver 8-18 0 l Ultra 20:29: Refill(s) [facility] Claritin Yes 10 mg = 1 Jairo frida 8-18 tab, PO, l 20:29: Daily, PRN Lewis 00 Itching / rash / allergy symptoms, # 20 tab, 0 Refill(s) Stool Yes PO, Memoria Softener 8-18 Bedtime, 0 l with 20:29: Refill(s) [facility] Laxative aspirin-ome No 1 tab, PO, Memoria prazole 325 8-18 Daily, 0 l mg-40 mg 20:29: Refill(s) Herm joss oral 00 delayed release tablet Centrum Yes PO, Daily, Jairo frida Silver 8-18 0 l Ultra 20:29: Refill(s) [facility] Women[facility] 00 Claritin Yes 10 mg = 1 Jairo frida 8-18 tab, PO, l 20:29: Daily, PRN Lewis 00 Itching / rash / allergy symptoms, # 20 tab, 0 Refill(s) Stool 0 Yes PO, Memoria Softener 8-18 Bedtime, 0 l with 20:29: Refill(s) [facility] Laxative 00 cephalexin Yes 500 mg = 1 M emoria 500 mg oral 8-18 cap, PO, l capsule 20:28: QID, # 20 Macey nn 00 cap, 0 Refill(s) furosemide Yes 80 mg = 1 Me moria 80 mg oral 8-18 tab, PO, l tablet 20:28: Daily, # [facility] 00 90 tab, 0 Refill(s) Insulin Yes [...] tab, PO, l tablet 20:28: Daily, # [facility] 00 90 tab, 0 Refill(s) Insulin Yes [...] tab, PO, l tablet 20:28: Daily, # [facility] 00 90 tab, 0 Refill(s) Insulin Yes [...] tab, PO, l tablet 20:28: Daily, # [facility] 00 90 tab, 0 Refill(s) Insulin Yes [...] Daily, # 30 tab, 0 Refill(s) lisinopril 0 Yes 5 mg = 1 Mem oria 5 mg oral 8-18 tab, PO, l tablet 20:27: Daily, # Lewis 90 tab, 1 Refill(s) Metoprolol 0 Yes [...] Daily, # 30 tab, 0 Refill(s) lisinopril 0 Yes 5 mg = 1 Mem oria [...] Daily, # 30 tab, 0 Refill(s) lisinopril 0 Yes 5 mg = 1 Mem oria 5 mg oral 8-18 tab, PO, l tablet 20:27: Daily, # [facility] 00 90 tab, 1 Refill(s) Metoprolol 0 [...] tab, PO, l tablet 20:27: Daily, # [facility] 00 90 tab, 1 Refill(s) Metoprolol 0 [...] Daily, # 30 tab, 0 Refill(s) lisinopril 0 Yes 5 mg = 1 Mem oria [...] Syringe [Lantus] tetracaine Yes PRN, Univers (PONTOCAINE 4-08 Starting ity of ) 0.5 % 17:31: [...] Until Branch Discontinu ed, Routine, Intra-op ceFAZolin 0 Yes PRN, Univers (ANCEF) 4-08 Starting ity of injection 17:25: [place]/14/20 [place] 00 at 1225, Medical Until Branch Discontinu ed, VIOLETTA, Intra-op balanced 0 Yes PRN, Univers salt soln 4-08 Starting ity of no.2 irrig. 17:25: Krystle 10/14/20 [place] (BSS) 00 at 1225, Medical ophthalmic Until Branch solution Discontinu ed, Routine, Intra-op insulin Yes 30U inject 30 Unive rs lispro 4-08 Units ity of (HUMALOG 14:34: under the [facility] DESTIN 02 skin 3 Medical KWIKPEN (three) Branch U-100) 100 times unit/mL daily. inph Insulin Yes 45U inject 45 Unive rs Glargine 4-08 Units ity of (LANTUS 14:34: under the [facility] 02 skin 2 Medical U-100 (two) Branch INSULIN) times 100 unit/mL daily. (3 mL) injection amLODIPine Yes 10mg Take 10 mg U nivers 10 mg 4-08 by mouth ity of tablet 14:34: daily. [place] [facility] buPROPion Yes 150mg Take 150 [...] 4-08 by mouth ity of 14:34: daily. [place] [facility] metoprolol Yes 50mg Take 50 mg U nivers succinate 4-08 by mouth 2 ity of XL 50 mg 24 14:34: (two) [place] hr tablet 02 times Medical daily. Branch pantoprazol Yes 40mg Take 40 mg Univers e 40 mg EC 4-08 by mouth ity o f tablet 14:34: daily. [address] Levothyroxi Yes 150ug Take 150 U nivers ne 100 mcg 4-08 mcg by ity of capsule 14:34: mouth daily. [facility] Branch aspirin 325 Yes 325mg Take 325 U nivers mg tablet 4-08 mg by ity of 14:34: mouth daily. [facility] Branch Cholecalcif Yes Take by Uni vers daryl, 4-08 mouth. ity of Vitamin D3, 14:34: [place] (VITAMIN [address] [place] [address] D3) 25 mcg [place] (1,000 unit) capsule folic Yes Take by Univers acid/multiv 4-08 mouth ity of it-min/lute 14:34: [place]. [place] (CENTRUM [address] [place] [address] ORAL) mydriatic No .5mL 0.5 mL, Univ [...] 1,000 mL 00 :00 IV Medical Infusion, [place] ONCE, 1 dose, Krystle 10/14/20 at 0745, Routine, DSU Pre-op insulin Yes 30U inject 30 Unive rs lispro 4-08 Units ity of (HUMALOG 09:34: under the [place] DESTIN 02 skin 3 Medical KWIKPEN (three) Branch U-100) 100 times unit/mL daily. inph Insulin Yes 45U inject 45 Unive rs Glargine 4-08 Units ity of (LANTUS 09:34: under the [place] SOLOSTAR 02 skin 2 Medical U-100 (two) Branch INSULIN) times 100 unit/mL daily. (3 mL) injection amLODIPine Yes 10mg Take 10 mg U nivers 10 mg 4-08 by mouth ity of tablet 09:34: daily. [address] buPROPion Yes 150mg Take 150 Uni vers [...] 4-08 by mouth ity of 09:34: daily. [place] [facility] metoprolol Yes 50mg Take 50 mg U nivers succinate 4-08 by mouth 2 ity of XL 50 mg 24 09:34: (two) [place] hr tablet 02 times Medical daily. Branch pantoprazol Yes 40mg Take 40 mg Univers e 40 mg EC 4-08 by mouth ity o f tablet 09:34: daily. [place] [facility] Levothyroxi Yes 150ug Take 150 U nivers ne 100 mcg 4-08 mcg by ity of capsule 09:34: mouth [place] 02 daily. Medical Branch aspirin 325 Yes 325mg Take 325 U nivers mg tablet 4-08 mg by ity of 09:34: mouth [place] 02 daily. Medical Branch Cholecalcif Yes Take by Uni vers daryl, 4-08 mouth. ity of Vitamin D3, 09:34: [place] (VITAMIN [facility] D3) 25 mcg Branch (1,000 unit) capsule folic Yes Take by Univers acid/multiv 4-08 mouth ity of it-min/lute 09:34: daily. Jonelle aleman in (CENTRUM 02 [facility] Branch ORAL) insulin 2019-07 Yes 30U [id number] Inject 30 Methodi lispro -[id number] (HumaLOG 00:00: 3D under the [facility] U-100 00 skin 3 l Insulin) (three) 100 unit/mL times a injection day before meals. insulin 2019-07 Yes 30U [id number] Inject 30 [facility]i lispro 1-[id number] (HumaLOG 00:00: 3D under the [facility] U-100 00 skin 3 l Insulin) (three) 100 unit/mL times a injection day before meals. insulin 2019-07 Yes 30U [id number] Inject 30 [facility]i lispro - [id number] Units st (HumaLOG 00:00: 3D under the [facility] U-100 00 skin 3 l Insulin) (three) 100 unit/mL times a injection day before meals. insulin 2020-1 Yes 30U [id number] Inject 30 [facility] lispro 1-[id number] (HumaLOG 00:00: 3D under the [facility] U-100 00 skin 3 l Insulin) (three) 100 unit/mL times a injection day before meals. insulin 2020-1 Yes 30U [id number] Inject 30 [facility] lispro 1-[id number] (HumaLOG 00:00: 3D under the [facility] U-100 00 skin 3 l Insulin) (three) 100 unit/mL times a injection day before meals. insulin 2020-0 Yes 30U inject 30 Unive rs lispro 9-24 Units ity of (HUMALOG 16:37: under the [facility] 58 skin 3 Medical KWIKPEN (three) Branch U-100) 100 times unit/mL daily. inph Insulin 2020-0 Yes 45U inject 45 Unive rs Glargine 9-24 Units ity of (LANTUS 16:37: under the [place] SOLOSTAR 58 skin 2 Medical U-100 (two) Branch INSULIN) times 100 unit/mL daily. (3 mL) injection amLODIPine 2020-0 Yes 10mg Take 10 mg U nivers 10 mg 9-24 by mouth ity of tablet 16:37: daily. [place] [address] Medical Branch buPROPion 2020-0 Yes 150mg Take [...] by mouth ity of tablet 16:37: daily. [place] [address] Medical Branch metoprolol 2020-0 Yes 50mg Take 50 mg U nivers succinate 9-24 by mouth 2 ity of XL 50 mg 24 16:37: (two) [place] hr tablet 58 times Medical daily. Branch pantoprazol 2020-0 Yes 40mg Take 40 mg Univers e 40 mg EC 9-24 by mouth ity o f tablet 16:37: daily. [place] [address] Medical Branch Levothyroxi 2020-0 Yes 150ug Take [...] 9-24 mouth. ity of Vitamin D3, 16:37: [place] (VITAMIN Medical D3) 25 mcg Branch (1,000 unit) capsule folic 2020-0 Yes Take by Univers acid/multiv 9-24 mouth ity of it-min/lute 16:37: [facility]. [facility] 58 Medical SILVER Branch ORAL) insulin 2020-0 Yes 30U inject 30 Unive rs lispro 9-24 Units ity of (HUMALOG 16:37: under the [place] s DESTIN 58 skin 3 Medical KWIKPEN (three) Branch U-100) 100 times unit/mL daily. inph Insulin 2020-0 Yes 45U inject 45 Unive rs Glargine 9-24 Units ity of (LANTUS 16:37: under the [place] SOLOSTAR 58 skin 2 Medical U-100 (two) Branch INSULIN) times 100 unit/mL daily. (3 mL) injection amLODIPine 2020-0 Yes 10mg Take 10 mg U nivers 10 mg 9-24 by mouth ity of tablet 16:37: daily. [place] [address] Medical Branch buPROPion 2020-0 Yes 150mg Take [...] by mouth ity of tablet 16:37: daily. [place] [address] Medical Branch metoprolol 2020-0 Yes 50mg Take 50 mg U nivers succinate 9-24 by mouth 2 ity of XL 50 mg 24 16:37: (two) [place] hr tablet 58 times Medical daily. Branch pantoprazol 2020-0 Yes 40mg Take 40 mg Univers e 40 mg EC 9-24 by mouth ity o f tablet 16:37: daily. [place] [address] Medical Branch Levothyroxi 2020-0 Yes 150ug Take [...] 9-24 mouth. ity of Vitamin D3, 16:37: [place] (VITAMIN [address] [place] [address] D3) 25 mcg Branch (1,000 unit) capsule folic 2020-0 Yes Take by Univers acid/multiv 9-24 mouth ity of it-min/lute 16:37: [place]. [place] (CENTRUM 58 Medical SILVER Branch ORAL) insulin 2020-0 Yes 30U inject 30 Unive rs lispro 9-24 Units ity of (HUMALOG 16:37: under the [facility] DESTIN 58 skin 3 Medical KWIKPEN (three) Branch U-100) 100 times unit/mL daily. inph Insulin 2020-0 Yes 45U inject 45 Unive rs Glargine 9-24 Units ity of (LANTUS 16:37: under the [place] SOLOSTAR 58 skin 2 Medical U-100 (two) Branch INSULIN) times 100 unit/mL daily. (3 mL) injection amLODIPine 2020-0 Yes 10mg Take 10 mg U nivers 10 mg 9-24 by mouth ity of tablet 16:37: daily. [place] [address] Medical Branch buPROPion 2020-0 Yes 150mg Take [...] by mouth ity of tablet 16:37: daily. [place] [address] Medical Branch metoprolol 2020-0 Yes 50mg Take 50 mg U nivers succinate 9-24 by mouth 2 ity of XL 50 mg 24 16:37: (two) [place] hr tablet 58 times Medical daily. Branch pantoprazol 2020-0 Yes 40mg Take 40 mg Univers e 40 mg EC 9-24 by mouth ity o f tablet 16:37: daily. [place] [address] Medical Branch Levothyroxi 2020-0 Yes 150ug Take [...] 9-24 mouth. ity of Vitamin D3, 16:37: [place] (VITAMIN [address] [place] [address] D3) 25 mcg Branch (1,000 unit) capsule folic 2020-0 Yes Take by Univers acid/multiv 9-24 mouth ity of it-min/lute 16:37: [place] (CENTRUM 58 Medical SILVER Branch ORAL) insulin 2019-0 Yes 30U inject 30 Unive rs lispro 9-24 Units ity of (HUMALOG 16:37: under the [facility] DESTIN 58 skin 3 Medical KWIKPEN (three) Branch U-100) 100 times unit/mL daily. inph Insulin 2019-0 Yes 45U inject 45 Unive rs Glargine 9-24 Units ity of (LANTUS 16:37: under the [place] SOLOSTAR 58 skin 2 Medical U-100 (two) Branch INSULIN) times 100 unit/mL daily. (3 mL) injection amLODIPine 2019-0 Yes 10mg Take 10 mg U nivers 10 mg 9-24 by mouth ity of tablet 16:37: daily. [place] [address] Medical Branch buPROPion 2020-0 Yes 150mg Take [...] by mouth ity of tablet 16:37: daily. [place] [address] Medical Branch metoprolol 2020-0 Yes 50mg Take 50 mg U nivers succinate 9-24 by mouth 2 ity of XL 50 mg 24 16:37: (two) [place] hr tablet 58 times Medical daily. Branch pantoprazol 2020-0 Yes 40mg Take 40 mg Univers e 40 mg EC 9-24 by mouth ity o f tablet 16:37: daily. [place] [address] Medical Branch Levothyroxi 2020-0 Yes 150ug Take [...] 9-24 mouth. ity of Vitamin D3, 16:37: [place] (VITAMIN [address] [place] [address] D3) 25 mcg Branch (1,000 unit) capsule folic 2020-0 Yes Take by Univers acid/multiv 9-24 mouth ity of it-min/lute 16:37: [place] (CENTRUM 58 Medical SILVER Branch ORAL) insulin 2020-0 Yes 30U inject 30 Unive rs lispro 9-24 Units ity of (HUMALOG 13:50: under the [facility] DESTIN 18 skin 3 Medical KWIKPEN (three) Branch U-100) 100 times unit/mL daily. inph Insulin 2020-0 Yes 45U inject 45 Unive rs Glargine 9-24 Units ity of (LANTUS 13:50: under the [place] SOLOSTAR 18 skin 2 Medical U-100 (two) Branch INSULIN) times 100 unit/mL daily. (3 mL) injection amLODIPine 2020-0 Yes 10mg Take 10 mg U nivers 10 mg 9-24 by mouth ity of tablet 13:50: daily. [place] 18 Medical Branch buPROPion 2020-0 Yes 150mg Take [...] by mouth ity of tablet 13:50: daily. [place] 18 Medical Branch metoprolol 2020-0 Yes 50mg Take 50 mg U nivers succinate 9-24 by mouth 2 ity of XL 50 mg 24 13:50: (two) [place] hr tablet 18 times Medical daily. Branch pantoprazol 2020-0 Yes 40mg Take 40 mg Univers e 40 mg EC 9-24 by mouth ity o f tablet 13:50: daily. [place] [address] Medical Branch Levothyroxi 2020-0 Yes 150ug Take [...] 9-24 mouth. ity of Vitamin D3, 13:50: [place] (VITAMIN [address] [place] [address] D3) 25 mcg [place] (1,000 unit) capsule folic 2020-0 Yes Take by Univers acid/multiv 9-24 mouth ity of it-min/lute 13:50: [place]. [place] (CENTRUM 18 Medical SILVER Branch ORAL) insulin 2020-0 Yes 30U inject 30 Unive rs lispro 9-24 Units ity of (HUMALOG 13:50: under the [place] s DESTIN 18 skin 3 Medical KWIKPEN (three) Branch U-100) 100 times unit/mL daily. inph Insulin 2020-0 Yes 45U inject 45 Unive rs Glargine 9-24 Units ity of (LANTUS 13:50: under the [place] SOLOSTAR 18 skin 2 Medical U-100 (two) Branch INSULIN) times 100 unit/mL daily. (3 mL) injection amLODIPine 2020-0 Yes 10mg Take 10 mg U nivers 10 mg 9-24 by mouth ity of tablet 13:50: daily. [address] Branch buPROPion 2020-0 Yes 150mg Take 150 [...] by mouth ity of tablet 13:50: daily. [address] Branch metoprolol 2020-0 Yes 50mg Take 50 mg U nivers succinate 9-24 by mouth 2 ity of XL 50 mg 24 13:50: (two) [place] hr tablet 18 times Medical daily. Branch pantoprazol 2020-0 Yes 40mg Take 40 mg Univers e 40 mg EC 04-01 by mouth ity o f tablet 13:50: daily. [place] [address] Medical Branch Levothyroxi 2020-0 Yes 150ug Take [...] 04-01 mouth. ity of Vitamin D3, 13:50: [place] (VITAMIN 18 [facility] D3) 25 mcg Branch (1,000 unit) [...] [place] Medical mL (1 %) 04/01/20 at [facility] h injection 0802, Until [place] 9/24/20 at 0833, Routine, Intra-op remifentani 2020-0 2020- No Intravenou Univers L (ULTIVA) 04-0124 s, ONCE ity o f injection 13:02: 13:33 INTRA [place] 00 :17 PROCEDURE, Medical Starting Branch [facility] 04/01/20 at 0802, Until [place] 04/01/20 at 0833, Routine, Intra-op lidocaine 2020-0 2020- No ONCE INTRA U nivers 1% 04-01 PROCEDURE, ity of (XYLOCAINE) 13:02: 13:33 Starting [place] 100 mg/10 00 :17 [facility] Medical mL (1 %) 04/01/20 at [facility] h injection 0802, Until [place]le 04/01/20 at 0833, Routine, Intra-op remifentani 2020-0 2020- No Intravenou Univers L (ULTIVA) 04-01 s, ONCE ity o f injection 13:02: 13:33 INTRA [place] 00 :17 PROCEDURE, [facility] Starting [facility] 04/01/20 at 0802, Until [place] 04/01/20 at 0833, Routine, Intra-op lactated 2020-0 2020- No IV Univers ringers IV 04-01 Infusion, ity of infusion 13:01: 13:33 [place]OUS [place] 00 :17 PRN, [facility] Starting [facility] 04/01/20 at 0801, Until [place] 04/01/20 at 0833, Routine, Intra-op lactated 2020-0 2020- No IV Univers ringers IV 04-01 Infusion, ity of infusion 13:01: 13:33 [place] 00 :[place] PRN, Medical Starting [facility] 04/01/20 at 0801, Until [place] 04/01/20 at 0833, Routine, Intra-op tetracaine 2020-0 Yes PRN, Univers (PONTOCAINE 04-01 Starting ity of ) 0.5 % 12:53: [place] ophthalmic 04/01/20 at Med ical drops 0753, Branch Until Discontinu ed, Routine, Intra-op water for 2020-0 Yes PRN, Univers irrigation 04-01 Starting ity o f irrigation 12:53: K[place]le [place] solution 00 04/01/20 at Medic al 0753, Branch Until Discontinu ed, Routine, Intra-op NaCl 0.9% 2020-0 Yes PRN, Univers (NS) 04-01 Starting ity of injection 12:52: [facility] [place] 04/01/[address] Until Discontinu ed, Routine, Intra-op neomycin-po 2020-0 Yes PRN, Univer s lymyxin-dex 04-01 Starting ity of amethasone 12:52: [place] (MAXITROL) 04/01/20 at [facility] [address] [place] [address] mg/g-10,000 Until unit/g-0.1 Discontinu % ed, ophthalmic Routine, ointment Intra-op gentamicin 2020-0 Yes PRN, Univers injection 04-01 Starting ity of 12:52: [facility] [place] 04/01/[address] Until Discontinu ed, VIOLETTA, Intra-op eye block 2020-0 Yes PRN, Univers syringe 11 04-01 Starting ity o f mL 12:51: [facility]le [place] 04/01/[address] Until Discontinu ed, Intra-op EPINEPHrine 2020-0 Yes PRN, Univer s (PF) 04-01 Starting ity of 1:1,000 (1 12:51: [place] mg/mL) 04/01/20 at [facility] (ADRENALIN [facility] [place] (PF)) Until injection Discontinu ed, Routine, Intra-op DUOVISC 2020-0 Yes PRN, Univers (DUOVISC 04-01 Starting ity of VISCO 12:51: [place] ELASTIC) 3 04/01/20 at [facility] %-4 %(0.[address] [facility] [place] mL) 1 % Until (0.55 mL) Discontinu intraocular ed, injection Routine, Intra-op dexamethaso 2020-0 Yes PRN, Univer s ne 04-01 Starting ity of (DECADRON 12:50: [place] PHOSPHATE) 04/01/20 at [facility] injection [address] [place] [address] Until Discontinu ed, Routine, Intra-op ceFAZolin 2020-0 Yes PRN, Univers (ANCEF) 04-01 Starting ity of injection 12:50: [facility] [place] 04/01/20 at [place] [address], [place] Until Discontinu ed, VIOLETTA, Intra-op balanced 2020-0 Yes [facility], [facility] 04[facility] Starting ity of no.2 irrig. 12:49: [place] (BSS) 00 04/01/20 at Medical ophthalmic 0749, Branch solution Until Discontinu ed, Routine, Intra-op lactated 2020-0 2020- No 1000mL at 20 Univ rs ringers IV 04-01 mL/hr, ity of infusion 12:00: 12:17 1,000 mL, [place] 1,000 mL 00 :00 IV Medical Infusion, [place] ONCE, 1 dose, [place] 04/01/20 at 0700, Routine, DSU Pre-op mydriatic 2019-0 2020- No .5mL 0.5 mL, [facility] ers #5 04-01 Left Eye, ity of ophthalmic 12:00: 12:16 ONCE, 1 [place] solution 00 :00 dose, [place] Medica l 0.5 mL 04/01/20 at [place] syringe 0700, Routine Lantus 2020-0 Yes 45U [...] Q.5D Take 50 mg M ethodi succinate - by mouth 2 st XL 00:00: (two) Hospita (TOPROL-XL) 00 times a l 25 mg 24 hr day. tablet metoprolol 2020-0 Yes 50mg Q.5D Take 50 mg M ethodi succinate 03-[address] XL 00:00: (two) Hospita (TOPROL-XL) 00 times a l 25 mg 24 hr day. tablet metoprolol 2020-0 Yes 50mg Q.5D Take 50 mg M ethodi succinate - by mouth 2 st XL 00:00: (two) [...] st 5 mg tablet 00:00: daily. [facility]osp [facility] 00 l lisinopriL 2020-0 Yes 5mg QD [...] 00:00: mouth [facility]osp[facility] 00 every l morning. Pantoprazol Pantoprazol No 1{table QD Pantoprazo e [...] 50 (1999 [place]) (1999 [place]) MCG (1999) Metoprolol Metoprolol No Metoprolol Tartrate [...] Sodium 150 MCG 150 MCG 150 MCG Immunizations Ordered Immunization Filled Immunization Date Status Commen ts Source Name Name ARIADNE COVID-19 MRNA 2021-07-27 Completed Meth odist VACCINATION 00:00:00 [facility] PFIZER COVID-19 MRNA 2021-07-27 Completed Meth odist VACCINATION 00:00:00 [facility] PFIZER COVID-19 MRNA 2021-07-27 Completed Meth odist VACCINATION 00:00:00 [facility] PFIZER COVID-19 MRNA 2021-07-27 Completed Meth odist VACCINATION 00:00:00 [facility] PFIZER COVID-19 MRNA 2021-07-27 Completed Meth odist VACCINATION 00:00:00 [facility] PFIZER COVID-19 MRNA 2021-02-25 Completed Meth odist VACCINATION 00:00:00 [facility] PFIZER COVID-19 MRNA 2021-02-25 Completed Meth odist VACCINATION 00:00:00 [facility] PFIZER COVID-19 MRNA 2021-02-25 Completed Meth odist VACCINATION 00:00:00 [facility] PFIZER COVID-19 MRNA 2021-02-25 Completed Meth odist VACCINATION 00:00:00 [facility] PFIZER COVID-19 MRNA 2021-02-25 Completed Meth odist VACCINATION 00:00:00 [facility] PFIZER COVID-19 MRNA 2021-01-06 Completed Meth odist VACCINATION 00:00:00 [facility] PFIZER COVID-19 MRNA 2021-01-06 Completed Meth odist VACCINATION 00:00:00 [facility] PFIZER COVID-19 MRNA 2021-01-06 Completed Meth odist VACCINATION 00:00:00 [facility] PFIZER COVID-19 MRNA 2021-01-06 Completed Meth odist VACCINATION 00:00:00 [facility] PFIZER COVID-19 MRNA 2021-01-06 Completed Meth odist VACCINATION 00:00:00 Hospital Vital Signs Vital Name Observation Time Observation Value Comments Source height 2022-08-15 10:20:00 66.0 [in_i] [facility] weight 2022-08-15 10:20:00 224.4 [lb_av] [facility] temperature 2022-08-15 10:20:00 97.0 [degF] [facility] bmi 2022-08-15 10:20:00 36.22 kg/m2 [facility] oximetry 2022-08-15 10:20:00 96 % [facility] respiratory rate 2022-08-15 10:20:00 17 /min Comm on [facility] blood pressure 2022-08-15 10:20:00 131 mm[Hg] [facility] systolic [facility] blood pressure 2022-08-15 10:20:00 72 mm[Hg] Common [facility] diastolic [facility] height 2022-02-27 11:20:00 66.0 [in_i] [facility] weight 2022-02-27 11:20:00 236.6 [lb_av] [facility] temperature 2022-02-27 11:20:00 97.2 [degF] [facility] bmi 2022-02-27 11:20:00 38.18 kg/m2 [facility] oximetry 2022-02-27 11:20:00 94 % [facility] respiratory rate 2022-02-27 11:20:00 16 /min Comm on [facility] blood pressure 2022-02-27 11:20:00 138 mm[Hg] [facility] - systolic [facility] blood pressure 2022-02-27 11:20:00 76 mm[Hg] [facility] - diastolic [facility] height 2022-02-27 11:00:00 66.0 [in_i] [facility] weight 2022-02-27 11:00:00 236.6 [lb_av] [facility] temperature 2022-02-27 11:00:00 97.2 [degF] [facility] bmi 2022-02-27 11:00:00 38.18 kg/m2 [facility] oximetry 2022-02-27 11:00:00 93 % [facility] respiratory rate 2022-02-27 11:00:00 16 /min Comm on [facility] blood pressure 2022-02-27 11:00:00 138 mm[Hg] [facility] - systolic [facility] blood pressure 2022-02-27 11:00:00 76 mm[Hg] [facility] diastolic [facility] Systolic blood 2020-10-14 14:10:00 120 mm[Hg] Univer sity [facility] Diastolic blood 2020-10-14 14:10:00 65 mm[Hg] Unive rsity [facility] Heart rate 2020-10-14 14:10:00 81 /min [facility] Body temperature 2020-10-14 14:10:00 36.06 Katharina [facility] Res[facility] rate 2020-10-14 14:10:00 13 /min [facility] Oxygen saturation in 2020-10-14 14:10:00 99 /min [facility] Arterial blood by [facility] Pulse oximetry Branch Body height 2020-10-01 18:42:00 167.6 cm [facility] Body weight 2020-10-01 18:42:00 108.4 kg [facility] BMI 2020-10-01 18:42:00 38.59 kg/m2 [facility] Systolic blood 2020-10-14 14:10:00 120 mm[Hg] Univer sity of pressure [place] [facility] Diastolic blood 2020-10-14 14:10:00 65 mm[Hg] Unive rsity of pressure [place] [facility] Heart rate 2020-10-14 14:10:00 81 /min Universi ty of [place] [facility] Body temperature 2020-10-14 14:10:00 36.06 Katharina Univ ersity of [place] [facility] Respiratory rate 2020-10-14 14:10:00 13 /min Univ ersity of [place] [facility] Oxygen saturation in 2020-10-14 14:10:00 99 /min University of Arterial blood by [facility] jose Pulse oximetry Branch Body height 2020-10-01 18:42:00 167.6 cm Universi ty of [place] [facility] Body weight 2020-10-01 18:42:00 108.4 kg Universi ty of [place] [facility] BMI 2020-10-01 18:42:00 38.59 kg/m2 Universi ty of [place] [facility] Systolic blood 2020-04-01 13:55:00 113 mm[Hg] Univer sity of pressure [place] [facility] Diastolic blood 2020-04-01 13:55:00 56 mm[Hg] Unive rsity of pressure [place] [facility] Heart rate 2020-04-01 13:55:00 63 /min Universi ty of [place] [facility] Body temperature 2020-04-01 13:55:00 36.11 Katharina Univ ersity of [place] [facility] Oxygen saturation in 2020-04-01 13:50:00 100 /min University of Arterial blood by [facility] Pulse oximetry Branch Respiratory rate 2020-04-01 13:45:00 18 /min Univ ersity of [place] [facility] Body height 2020-03-30 17:15:00 167.6 cm Universi ty of [place] [facility] Body weight 2020-03-30 17:15:00 108.41 kg Universi ty of [place] [facility] BMI 2020-03-30 17:15:00 38.58 kg/m2 Universi ty [facility] [place] [facility] Systolic blood 2020-04-01 13:55:00 113 mm[Hg] Univer sity of pressure [place] [facility] Diastolic blood 2020-04-01 13:55:00 56 mm[Hg] Unive rsity of pressure [place] [facility] Heart rate 2020-04-01 13:55:00 63 /min Universi ty of [place] [facility] Body temperature 2020-04-01 13:55:00 36.11 Katharina [facility] Oxygen saturation in 2020-04-01 13:50:00 100 /min [facility] Arterial blood by [facility] Pulse oximetry Branch Respiratory rate 2020-04-01 13:45:00 18 /min [facility] Body height 2020-03-30 17:15:00 167.6 cm [facility] Body weight 2020-03-30 17:15:00 108.41 kg [facility] BMI 2020-03-30 17:15:00 38.58 kg/m2 [facility] Respiratory rate 2020-04-01 13:32:00 18 /min [facility] Respiratory rate 2020-04-01 13:32:00 18 /min [facility] Heart rate 2022-04-26 17:30:00 76 /min [facility] Oxygen saturation in 2022-04-26 17:30:00 93 /min [facility] Arterial blood by Pulse oximetry Systolic blood 2022-04-26 17:20:00 139 mm[Hg] [facility] pressure Diastolic blood 2022-04-26 17:20:00 67 mm[Hg] [facility] pressure Respiratory rate 2022-04-26 17:20:00 16 /min [facility] Body temperature 2022-04-26 17:00:00 36.44 Katharina [facility] Body height 2022-04-24 17:06:00 167.6 cm [facility] Body weight 2022-04-24 17:06:00 110.224 kg [facility] BMI 2022-04-24 17:06:00 39.22 kg/m2 [facility] Systolic (mm Hg) 2021-02-23 20:05:00 Jairo rial [place] Diastolic (mm Hg) 2021-02-23 20:05:00 Mem orial [place] Heart Rate 2021-02-23 20:05:00 [facility] Respitory Rate 2021-02-23 20:05:00 Anitaori al [facility] Height 2021-02-23 20:05:00 162.56 cm [facility] Weight 2021-02-23 20:05:00 [facility] BMI Calculated 2021-02-23 20:05:00 Sriram Larkin Procedures Procedure Date / Time Performing Source Performed Clinician [id number] 2022-07-06 [facility] 00:00:00 [facility] [id number] 2022-07-04 [facility] 00:00:00 [facility] [id number] 2022-07-01 [facility] 00:00:00 [facility] [id number] 2022-06-29 [facility] 00:00:00 [facility] [id number] 2022-06-28 [facility] 00:00:00 [facility] [id number] 2022-06-27 AL[facility]MO [facility] 00:00:00 [facility] [id number] 2022-06-27 [facility] 00:00:00 [facility] [id number] 2022-06-27 [facility] 00:00:00 [facility] [id number] 2022-06-27 [facility] 00:00:00 [facility] [id number] 2022-06-26 [facility] 00:00:00 [facility] [id number] 2022-06-26 [facility] 00:00:00 [facility] [id number] 2022-06-26 [facility] 00:00:00 [facility] [id number] 2022-06-26 [facility] 00:00:00 [facility] [id number] 2022-06-26 [facility] 00:00:00 [facility] [id number] 2022-06-24 [facility] 00:00:00 [facility] [id number] 2022-06-23 [facility] 00:00:00 [facility] [id number] 2022-06-22 [facility] 00:00:00 [facility] POC GLUCOSE 2022-04-26 Jose Becker [facility] 16:04:00 E. [place] AN ELECTIVE ENDOTRACHEAL 2022-04-26 Mariely De La Cruz [facility] AIRWAY 15:12:00 LAPAROSCOPIC REMOVAL OR 2022-04-26 Jose Becker [facility] REPOSITIONING OF PERITONEAL 14:56:00 E. DIALYSIS CATHETER ESTIMATED GFR 2022-04-26 [facility] pital 13:00:00 E. POC PANEL 2022-04-26 [facility] pital 13:00:00 E. POC GLUCOSE 2022-03-06 [facility] pital 16:00:00 E. SURGICAL PATHOLOGY REQUEST 2022-03-06 [facility] 15:28:00 E. POC GLUCOSE 2022-03-06 [facility] pital 15:23:00 E. ANESTHESIA INTUBATION 2022-03-06 [facility] 12:57:00 CHOLECYSTECTOMY, LAPAROSCOPIC 2022-03-06 [facility] 12:44:00 E. INSERTION, CATHETER, 2022-03-06 [facility] DIALYSIS, PERITONEAL, 12:44:00 E. LAPAROSCOPIC ESTIMATED GFR 2022-03-06 [facility] pital 11:50:00 E. [facility] E. BASIC METABOLIC PANEL 2022-03-06 [facility] 11:40:00 ESTIMATED GFR 2022-03-06 [facility] verónica 11:40:00 CBC WITH PLATELET AND 2022-03-01 [facility] DIFFERENTIAL 18:18:00 HEMOGLOBIN A1C 2022-03-01 [facility] ver[facility]ica 18:18:00 PARTIAL THROMBOPLASTIN TIME 2022-03-01 [facility] (PTT) 18:18:00 PROTHROMBIN TIME WITH INR 2022-03-01 [facility] 18:18:00 REFERRAL- REQUEST/RESPONSE 2022-02-07 [facility] ECG PRE/POST OP 2021-12-12 [facility] verónica 20:54:02 CBC WITH PLATELET AND 2021-12-12 [facility] DIFFERENTIAL 20:25:00 HEMOGLOBIN A1C 2021-12-12 [facility] 20:25:00 TYPE AND SCREEN 2021-12-12 [facility] 20:25:00 PHACOEMULSIFICATION OF 2020-10-14 Aleisha [facility] CATARACT WITH INTRAOCULAR 13:33:00 [place] [facility] LENS IMPLANT POCT GLUCOSE (AUTOMATED) 2020-10-14 [facility] 12:38:00 [facility] POCT GLUCOSE(AGE >30DAYS) 2020-10-14 Anita [facility] 12:35:00 Medical Branch ASSIGNMENT OF BENEFITS 2020-10-12 Doctor Unassigned, [facility] 16:32:53 [facility] POCT GLUCOSE(AGE >30DAYS) 2020-04-01 Bora Skinner [facility] 12:03:00 Medical Branch ASSIGNMENT OF BENEFITS 2020-03-30 Doctor Unassigned, [facility] 16:01:28 [facility] NOTICE OF BILLING PRACTICES 2020-03-23 Doctor Unassigned, [facility] FOR MEDICARE PATIENTS 20:49:43 [place] [facility] PATIENT FINANCIAL POLICY 2020-03-23 Doctor Unassigned, [facility] 20:49:19 [facility] NO SHOW OR MISSED APPOINTMENT 2020-03-23 Doctor Unassigned, [facility] POLICY ACKNOWLEDGEMENT 20:48:59 [place] [facility] ranch NOTICE OF PRIVACY PRACTICES 2020-03-23 Doctor Unassigned, [facility] 20:48:48 [facility] CONSENT/REFUSAL FOR DIAGNOSIS 2020-03-23 Doctor Unassigned, [facility] AND TREATMENT 20:48:30 [facility] ASSIGNMENT OF BENEFITS 2020-03-23 Doctor Unassigned, [facility] 20:48:19 [facility] PHYSICIAN ORDERS 2020-03-23 Doctor Unassigned, [facility] 05:01:00 [facility] Knee replacement<sup>2</sup> Mem orial [facility] Fusion<sup>1</sup> [facility] joss Back fusion [facility] Plan of Care Planned Activity Planned Date Details Comments Source Future Scheduled 2022-09-25 [facility] 16:30:22 (procedure) [code = [id number]] Future Scheduled 2022-09-25 SHINGLES VACCINES (1 Met [facility] Test 16:30:22 of 2) [code = SHINGLES VACCINES (1 of 2)] Future Scheduled 2022-09-25 BREAST CANCER [facility] Test 16:30:22 SCREENING [code = BREAST CANCER SCREENING] Future Scheduled 2022-09-[address] [facility] Test 16:30:22 [code = COLONOSCOPY SCREENING] Future Scheduled 2022-09-25 65+ [facility] 16:30:22 VACCINE (3 - PCV) [code = 65+ PNEUMOCOCCAL VACCINE (3 - PCV)] Future Scheduled 2022-09-25 INFLUENZA VACCINE [facility] Test 16:30:22 [code = INFLUENZA VACCINE] Future Scheduled 2022-07-[address] [...] SCREENING] Future Scheduled 2022-06-22 Hepatitis C screening [facility] Test 00:46:40 (procedure) [code = 347732736] Future Scheduled 2022-06-22 SHINGLES VACCINES (1 [facility] Test 00:46:40 of 2) [code = SHINGLES VACCINES (1 of 2)] Future Scheduled 2022-06-22 BREAST CANCER [facility] Test 00:46:40 SCREENING [code = BREAST CANCER SCREENING] Future Scheduled 2022-06-22 COLONOSCOPY SCREENING Me [facility] Test 00:46:40 [code = COLONOSCOPY SCREENING] Future Scheduled 2022-06-22 65+ [facility] 00:46:40 VACCINE (3 - PCV) [code = 65+ PNEUMOCOCCAL VACCINE (3 - PCV)] Future Scheduled 2022-06-22 [facility]ACCINE [facility] 00:46:40 [code = INFLUENZA VACCINE] Future Scheduled 2022-06-22 Hepatitis C screening [facility] Test 00:46:40 (procedure) [code = 458355007] Future Scheduled 2022-06-22 SHINGLES VACCINES (1 Met [facility] Test 00:46:40 of 2) [code = SHINGLES VACCINES (1 of 2)] Future Scheduled 2022-06-22 BREAST CANCER [facility] Test 00:46:40 SCREENING [code = BREAST CANCER SCREENING] Future Scheduled 2022-06-22 COLONOSCOPY SCREENING [facility] Test 00:46:40 [code = COLONOSCOPY SCREENING] Future Scheduled 2022-06-22 65+ [facility]OCCAL [facility] 00:46:40 VACCINE (3 - PCV) [code = 65+ PNEUMOCOCCAL VACCINE (3 - PCV)] Future Scheduled 2022-06-22 INFLUENZA VACCINE [facility] 00:46:40 [code = INFLUENZA VACCINE] Future Scheduled 2022-06-22 Hepatitis C screening [facility] Test 00:46:40 (procedure) [code = 297168562] Future Scheduled 2022-06-22 SHINGLES VACCINES (1 Met [facility] Test 00:46:40 of 2) [code = SHINGLES VACCINES (1 of 2)] Future Scheduled 2022-06-22 BREAST CANCER [facility] Test 00:46:40 SCREENING [code = BREAST CANCER SCREENING] Future Scheduled 2022-06-22 COLONOSCOPY SCREENING Me [facility] Test 00:46:40 [code = COLONOSCOPY SCREENING] Future Scheduled 2022-06-22 65+ [facility] 00:46:40 VACCINE (3 - PCV) [code = 65+ PNEUMOCOCCAL VACCINE (3 - PCV)] Future Scheduled 2022-06-22 [facility]ZA [facility]ACCINE [facility] 00:46:40 [code = INFLUENZA VACCINE] Future Scheduled 2022-06-11 HEPATITIS B VACCINES Met [facility] Test 01:18:56 (1 of 3 - 3-dose series) [code = HEPATITIS B VACCINES (1 of 3 - 3-dose series)] Future Scheduled 2022-06-[address] [facility] Test 01:18:56 (procedure) [code = 733001852] Future Scheduled 2022-06-11 SHINGLES VACCINES (1 Met [facility] Test 01:18:56 of 2) [code = SHINGLES VACCINES (1 of 2)] Future Scheduled 2022-06-11 BREAST CANCER [facility] Test 01:18:56 SCREENING [code = BREAST CANCER SCREENING] Future Scheduled 2022-06-[address] [facility] Test 01:18:56 [code = COLONOSCOPY SCREENING] Future Scheduled 2022-06-11 65+ [facility]CCAL [facility] Test 01:18:56 VACCINE (3 - PCV) [code = 65+ PNEUMOCOCCAL VACCINE (3 - PCV)] Future Scheduled 2022-06-11 INFLUENZA VACCINE [facility] Test 01:18:56 [code = INFLUENZA [...] [facility] colon (procedure) [code = 310164015] Future Scheduled 1956 Sigmoid[facility]code [facility] Future Scheduled [address] [facility] ne[facility] breast (procedure) [code = 239793702] Future Scheduled [address] [facility] Test 00:00:00 (combo) [code = CT Medical C enter Colonography (combo)] Future Scheduled [address] [facility] Test 00:00:00 [facility] colon (procedure) [code = 155974244] Future Scheduled [address] [facility] 00:00:00 [facility] colon (procedure) [code = 806511722] Future Scheduled 1956 DXA SCAN [code = DXA [facility] Test 00:00:00 SCAN] [facility] Future Scheduled [address] [facility] Test 00:00:00 [facility] colon (procedure) [code = 135594306] Future Scheduled [address] [facility] 00:00:00 [facility] colon (procedure) [code = 897129776] Future Scheduled 1956 [facility]oidoscopy [facility]] [facility] Future Scheduled [address] [facility] Test 00:00:00 [facility] breast (procedure) [code = 131584530] Future Scheduled [address] [facility] 00:00:00 (combo) [code = CT Medical C enter Colonography (combo)] Future Scheduled [address] [facility] Test 00:00:00 [facility] colon (procedure) [code = 449663726] Future Scheduled [address] [facility] 00:00:00 [facility] colon (procedure) [code = 704138894] Future Scheduled 1956 DXA SCAN [code = DXA [facility] Test 00:00:00 SCAN] [facility] Future Scheduled [address] [facility] 00:00:00 [facility] colon (procedure) [code = 470487856] Future Scheduled [address] [facility] 00:00:00 malignant [facility] colon (procedure) [code = 849778212] Future Scheduled 1956 Sigmoidoscopy [facility]code [facility]] [facility] Future Scheduled [address] [facility] 00:00:00 [facility] breast (procedure) [code = 709519879] Future Scheduled [address] [facility] 00:00:00 [facility] breast (procedure) [code = 348933051] Future Scheduled [address] [facility] 00:00:00 (combo) [code = CT Medical C enter Colonography (combo)] Future Scheduled [address] [facility] 00:00:00 [facility] colon (procedure) [code = 348952698] Future Scheduled [address] [facility] 00:00:00 malignant ne[facility] colon (procedure) [code = 060383093] Future Scheduled 1956 DXA SCAN [code = DXA [facility] Test 00:00:00 SCAN] [facility] Future Scheduled [address] [facility] 00:00:00 malignant [facility] colon (procedure) [code = 827984807] Future Scheduled [address] [facility] 00:00:00 malignant [facility] colon (procedure) [code = 004408708] Future Scheduled 1956 Sigmoidoscopy [facility]code = [facility] 00:[facility] Sigmoidoscopy] [facility] Future Scheduled [address] [facility] 00:00:00 (combo) [code = CT Medical C enter Colonography (combo)] Future Scheduled [address] [facility] 00:00:00 [facility] colon (procedure) [code = 235781128] Future Scheduled [address] [facility] Test 00:00:00 [facility] colon (procedure) [code = 181689459] Future Scheduled 1956 DXA SCAN [code = DXA [facility] Test 00:00:00 SCAN] [facility] Future Scheduled [address] [facility] Test 00:00:00 [facility] colon (procedure) [code = 127069598] Encounters Start End Encounter Admission Attending Care Care Encounter Source Date/Time Date/Time Type Type Clinicians Facility Department ID 2022-08-14 Outpatient Mora, STLMLC STLMLC [id number] Common 07:43:01 [facility] [address] [facility] 2022-08-04 Outpatient Mora, STLMLC STLMLC [id number] Common 13:26:01 [facility] [address] [facility] 2022-08-03 Outpatient Mora, STLMLC STLMLC [id number] Common 14:53:01 [facility] [address] [facility] 2022-07-25 Outpatient Mora, STLMLC STLMLC [id number] Common 15:59:02 Sabrina 422[address] [facility] 2022-07-24 Outpatient Mora, STLMLC STLMLC [id number] Common 07:39:00 Sabrina [address]8460 [facility] 2022-07-19 Outpatient Mora, STLMLC STLMLC [id number] Common 08:46:01 Sabrina 26471 [facility] 2022-07-15 Inpatient AR Schmid, HCACL ADMI [id number] [facility] 11:05:[address] 2022-06-20 [facility] [id number] [facility] 00[facility]:00 [facility] 2022-06-20 [facility] [id number] [facility] 00:00:00 [facility] 2022-06-15 Outpatient Mora, STLMLC STLMLC [id number] Common 08:26:02 Sabrina 25549 [facility] 2022-05-25 Outpatient Mora, STLMLC STLMLC [id number] Common 11:25:01 Sabrina 95[address] [facility] 2022-02-27 Outpatient Mora, STLMLC STLMLC [id number] Common 10:42:02 Sabrina [facility] 2022-02-03 Outpatient Myrick, STLMLC STLMLC [id number] Common 12:12:00 Avnee [facility] 2022-01-31 Outpatient Myrick, STLMLC STLMLC [id number] Common 12:38:00 Avnee [facility] 2021-12-02 Outpatient Myrick, STLMLC STLMLC [id number] Common 15:52:01 Avnee [facility] 2021-12-01 Outpatient Myrick, STLMLC STLMLC [id number] Common 10:24:03 Avnee [facility] 2021-11-21 Outpatient Myrick, STLMLC STLMLC [id number] Common 10:05:12 Avnee [facility] 2021-11-08 Outpatient Myrick, STLMLC STLMLC [id number] Common 08:37:01 Avnee [facility] 2021-11-04 Outpatient Myrick, STLMLC STLMLC [id number] Common 14:15:04 Avnee [facility] 2021-10-31 Outpatient Alexandra Arrieta STLMLC STLMLC [id number] Common 09:40:02 [facility] 2021-05-08 Outpatient Estevan MORAES [facility] OPH [id number] Univers 08:53:46 FAUSTO [facility] 2021-05-06 Outpatient Estevan MORAES [facility] ECTOR [id number] Univers 18:47:42 [facility] 2022-08-15 2022-08-15 OFFICE STLMLC STLMLC [id number] Co mmon 00:00:00 00:00:00 VISIT [facility] LEVEL 4 [facility] 2022-07-26 2022-07-26 (TEL) STLMLC STLMLC [id number] Co mmon 00:00:00 00:00:00 [facility] 2022-07-13 2022-07-13 (TEL) STLMLC STLMLC [id number] Co mmon 00:00:00 00:00:00 [facility] 2022-06-22 2022-07-07 Inpatient Adonis Wilkins [facility].01 [id number] [id number] [facility] 09:01:00 17:11:00 00 [facility] 2022-06-08 2022-06-08 (TEL) STLMLC STLMLC [id number] Co mmon 00:00:00 00:00:00 [facility] 2022-05-31 2022-05-31 (TEL) STLMLC STLMLC [id number] Co mmon 00:00:00 00:00:00 [facility] 2022-04-26 2022-04-26 [facility] Nahedbanner, 1.2.840.1 [id number] 21 [id number] Methodi 06:55:00 12:55:00 Encounter Jose E. 31374.1.[address] 3.430.2.7 Hospit a .3.419892 l .8 2022-04-26 2022-04-26 [facility], 1.2.840.1 [id number] 21 [id number] Methodi 06:55:00 12:55:00 Encounter Jose E. 63524.1.[address] 3.430.2.7 Hospit a .3.504219 l .8 2022-04-26 2022-04-26 Anesthesia Reji Waldrop 1.2.840.1 1 [id number] Methodi 09:56:00 11:03:00 Event Ce Knutson 59304.1.[address] 3.430.2.7 Hospit a .3.707794 l .8 2022-04-26 2022-04-26 Anesthesia Reji Waldrop 1.2.840.1 1 [id number] Methodi 09:56:00 11:03:00 Event Ce Knutson 51641.1.[address] 3.430.2.7 Hospit a .3.001299 l .8 2022-04-26 2022-04-26 Surgery [facility], 1.2.840.1 [id number] 671 [id number] Methodi 09:15:00 10:45:00 Jose E. 94039.1.1 677 s t 3.430.2.7 Hospit a .3.291487 l .8 2022-04-26 2022-04-26 Surgery [facility], 1.2.840.1 [id number] 860 [id number] Methodi 09:15:00 10:45:00 Jose E. 89570.1.1 677 s t 3.430.2.7 Hospit a .3.458692 l .8 2022-04-26 2022-04-26 Travel 1.2.840.1 1.2.065.104 6263 [id number] Methodi 00:00:00 00:00:[address] 3.430.2.7 0.2.7.3.698 Ho spita .3.108533 084.8 l .8 2022-04-26 2022-04-26 Travel 1.2.840.1 1.2.886.871 0733 526519 Methodi 00:00:00 00:00:[address] 3.430.2.7 0.2.7.3.698 Ho spita .3.816314 084.8 l .8 2022-04-24 2022-04-24 Travel 1.2.840.1 1.2.680.436 2765 974821 Methodi 00:00:00 00:00:[address] 3.430.2.7 0.2.7.3.698 Ho spita .3.358191 084.8 l .8 2022-04-24 2022-04-24 Travel 1.2.840.1 1.2.903.152 6253 568722 Methodi 00:00:00 00:00:[address] 3.430.2.7 0.2.7.3.698 Ho spita .3.407864 084.8 l .8 2022-04-21 2022-04-21 Prep for Oppermann, 1.2.840.1 [id number] 21 [id number] Methodi 00:00:00 00:00:00 Surgery Jose E. 02197.1.1 940 s t 3.430.2.7 Hospit a .3.426496 l .8 2022-04-21 2022-04-21 Orders Oppermann, 1.2.840.1 [id number] 397 [id number] Methodi 00:00:00 00:00:00 Only Jose E. 12946.1.1 613 s t 3.430.2.7 Hospit a .3.343153 l .8 2022-04-21 2022-04-21 Prep for Oppermann, 1.2.840.1 [id number] 21 [id number] Methodi 00:00:00 00:00:00 Surgery Jose Keller 75037.1.1 940 s t 3.430.2.7 Hospit a .3.410305 l .8 2022-04-21 2022-04-21 Orders Oppermann, 1.2.840.1 [id number] 937 [id number] Methodi 00:00:00 00:00:00 Only Jose Luevano. 19153.1.1 613 s t 3.430.2.7 Hospit a .3.124166 l .8 2022-04-05 2022-04-05 Outpatient Estevan IVERSON [facility] [id number] Univers 15:00:00 15:00:00 CARSON adam [facility] 2022-03-21 2022-03-21 Office Oppermann, 1.2.840.1 [id number] 302 [id number] Methodi 11:30:00 12:00:24 Visit Jose Keller 66017.1.1 407 s t 3.430.2.7 Hospit a .3.141928 l .8 2022-03-21 2022-03-21 Office Oppermann, 1.2.840.1 [id number] 889 [id number] Methodi 11:30:00 12:00:24 Visit Jose Keller 55079.1.1 407 s t 3.430.2.7 Hospit a .3.145381 l .8 2022-03-21 2022-03-21 Travel 1.2.840.1 1.2.418.911 4617 997158 Methodi 00:00:00 00:00:[address] 3.430.2.7 0.2.7.3.698 Ho spita .3.882343 084.8 l .8 2022-03-21 2022-03-21 Travel 1.2.840.1 1.2.797.098 1287 211901 Methodi 00:00:00 00:00:[address] 3.430.2.7 0.2.7.3.698 Ho spita .3.567244 084.8 l .8 2022-03-15 2022-03-15 Outpatient Estevan IVERSON [facility] [id number] Univers 10:00:00 10:00:00 CARSON adam [facility] 2022-03-14 2022-03-14 (TEL) STLMLC STLMLC [id number] Co mmon 00:00:00 00:00:00 [facility] 2022-03-06 2022-03-06 [facility], 1.2.840.1 [id number] Methodi 05:46:00 12:05:00 Encounter Jose Keller 64965.1.[address] 3.430.2.7 Hospit a .3.231815 l .8 2022-03-06 2022-03-06 [facility], 1.2.840.1 [id number] 21 [id number] Methodi 05:46:00 12:05:00 Encounter Jose Keller 98096.1.[address] 3.430.2.7 Hospit a .3.682985 l .8 2022-03-06 2022-03-06 Anesthesia Yvan Jory Patrick 1.2.840. 1 [id number] Methodi 07:44:00 09:46:00 Event Corrina Cavanaugh 15493.1.[address] 3.430.2.7 Hospit a .3.430261 l .8 2022-03-06 2022-03-06 Anesthesia Yvan Jory Hereford 1.2.840. 1 [id number] Methodi 07:44:00 09:46:00 Event Corrina Cavanaugh 51781.1.[address] 3.430.2.7 Hospit a .3.666486 l .8 2022-03-06 2022-03-06 Surgery [facility], 1.2.840.1 [id number] 929 [id number] Methodi 07:45:00 09:05:00 Jose Keller 14966.1.1 269 s t 3.430.2.7 Hospit a .3.664712 l .8 2022-03-06 2022-03-06 Surgery Oppermann, 1.2.840.1 [id number] 486 [id number] Methodi 07:45:00 09:05:00 Jose Luevano. 60135.1.1 269 s t 3.430.2.7 Hospit a .3.734807 l .8 2022-03-01 2022-03-01 Pre-Admiss Oppermann, 1.2.840.1 [id number] Methodi 13:00:00 14:00:00 ion Jose E. 37986.1.1 998 s t Testing 3.430.2.7 Hospit a .3.084129 l .8 2022-03-01 2022-03-01 Pre-Admiss Oppermann, 1.2.840.1 [id number] Methodi 13:00:00 14:00:00 ion Jose E. 54074.1.1 998 s t Testing 3.430.2.7 Hospit a .3.434625 l .8 2022-03-01 2022-03-01 Travel 1.2.840.1 1.2.576.164 2689 562832 Methodi 00:00:00 00:00:[address] 3.430.2.7 0.2.7.3.698 Ho spita .3.943527 084.8 l .8 2022-03-01 2022-03-01 Travel 1.2.840.1 1.2.758.253 1957 223440 Methodi 00:00:00 00:00:[address] 3.430.2.7 0.2.7.3.698 Ho spita .3.775455 084.8 l .8 2022-02-27 2022-02-27 SUB ANNUAL STLMLC STLMLC [id number] Common 00:00:00 00:00:00 [facility] - [facility] VISIT [facility] 2022-02-27 2022-02-27 [facility]ICE [facility] [id number] Co mmon 00:00:00 00:00:00 VISIT [facility] LEVEL 4 [facility] 2022-02-27 2022-02-27 (TEL) STLC STLC [id number] Co mmon 00:00:00 00:00:00 [facility] 2022-02-07 2022-02-07 Orders Doctor ROSELIA 1.2.840.114 [id number] Univers 00:00:00 00:00:00 Only Unassigned, CINDY 350.1.13.10 ity of [place] [facility] 4.2.7.2.686 [place] as [id number] [place] [address] [place] 2022-02-02 2022-02-02 (TEL) [facility] ST[facility] [id number] Co mmon 00:00:00 00:00:00 [facility] 2022-01-31 2022-01-31 Travel 1.2.840.1 1.2.076.203 7598 776155 Methodi 00:00:00 00:00:[address] 3.430.2.7 0.2.7.3.698 Ho spita .3.756360 084.8 l .8 2022-01-31 2022-01-31 Travel 1.2.840.1 1.2.643.638 0551 480322 Methodi 00:00:00 00:00:[address] 3.430.2.7 0.2.7.3.698 Ho spita .3.497270 084.8 l .8 2022-01-27 2022-01-27 (TEL) STLC STLC [id number] Co mmon 00:00:00 00:00:00 [facility] 2021-12-30 2021-12-30 (TEL) STLC STLC [id number] Co mmon 00:00:00 00:00:00 [facility] 2021-12-19 2021-12-19 (TEL) STLMLC STLMLC [id number] Co mmon 00:00:00 00:00:00 [facility] 2021-12-13 2021-12-13 (TEL) STLMLC STLMLC [id number] Co mmon 00:00:00 00:00:00 [facility] 2021-12-12 2021-12-12 Pre-Admiss Oppermann, 1.2.840.1 [id number] Methodi 15:00:00 16:00:00 ion Jose E. 97808.1.1 317 s t Testing 3.430.2.7 Hospit a .3.605454 l .8 2021-12-12 2021-12-12 Pre-Admiss Oppermann, 1.2.840.1 [id number] Methodi 15:00:00 16:00:00 ion Jose E. 20920.1.1 317 s t Testing 3.430.2.7 Hospit a .3.018451 l .8 2021-12-12 2021-12-12 Travel 1.2.840.1 1.2.966.342 5631 879254 Methodi 00:00:00 00:00:[address] 3.430.2.7 0.2.7.3.698 Ho spita .3.862593 084.8 l .8 2021-12-12 2021-12-12 Travel 1.2.840.1 1.2.680.014 9801 757078 Methodi 00:00:00 00:00:[address] 3.430.2.7 0.2.7.3.698 Ho spita .3.961960 084.8 l .8 2021-12-08 2021-12-08 (TEL) STLMLC STLMLC [id number] Co mmon 00:00:00 00:00:00 [facility] 2021-12-01 2021-12-01 (TEL) STLMLC STLMLC [id number] Co mmon 00:00:00 00:00:00 [facility] 2021-11-30 2021-11-30 (TEL) STLMLC STLMLC [id number] Co mmon 00:00:00 00:00:00 [facility] 2021-11-25 2021-11-25 (TEL) STLMLC STLMLC [id number] Co mmon 00:00:00 00:00:00 [facility] 2021-11-21 2021-11-21 (TEL) STLMLC STLMLC [id number] Co mmon 00:00:00 00:00:00 [facility] 2021-11-18 2021-11-18 (TEL) STLMLC STLMLC [id number] Co mmon 00:00:00 00:00:00 [facility] 2021-11-15 2021-11-15 Office Oppermann, 1.2.840.1 [id number] 404 [id number] Methodi 13:00:00 14:01:57 Visit Jose Keller 52980.1.1 465 s t 3.430.2.7 Hospit a .3.864560 l .8 2021-11-15 2021-11-15 Office [facility], 1.2.840.1 [id number] 253 [id number] Methodi 13:00:00 14:01:57 Visit Jose Keller 56707.1.1 465 s t 3.430.2.7 Hospit a .3.122073 l .8 2021-11-15 2021-11-15 Prep for [place], 1.2.840.1 [id number] 77365 61069 Methodi 00:00:00 00:00:00 Surgery [place] P [address]18.1.[address] 3.430.2.7 Hospit a .3.513649 l .8 2021-11-15 2021-11-15 Travel 1.2.840.1 1.2.353.659 2179 882661 Methodi 00:00:00 00:00:[address] 3.430.2.7 0.2.7.3.698 Ho spita .3.821433 084.8 l .8 2021-11-15 2021-11-15 Prep for [place], 1.2.840.1 [id number] 27148 78506 Methodi 00:00:00 00:00:00 Surgery [place] P [address]16.1.[address] 3.430.2.7 Hospit a .3.296029 l .8 2021-11-15 2021-11-15 Travel 1.2.840.1 1.2.735.638 4699 196918 Methodi 00:00:00 00:00:[address] 3.430.2.7 0.2.7.3.698 Ho spita .3.817224 084.8 l .8 2021-11-15 2021-11-15 (TEL) STLMLC STLMLC [id number] Co mmon 00:00:00 00:00:00 [facility] 2021-11-14 2021-11-14 (TEL) STLMLC STLMLC [id number] Co mmon 00:00:00 00:00:00 [facility] 2021-11-04 2021-11-04 (TEL) STLMLC STLMLC [id number] Co mmon 00:00:00 00:00:00 [facility] 2021-10-20 2021-10-20 Telephone Stephane, 1.2.840.1 [id number] 2099 [id number] Methodi 00:00:00 00:00:[address] 3.430.2.7 Hospit a .3.110618 l .8 2021-10-20 2021-10-20 Telephone Stephane, 1.2.840.1 [id number] 2099 [id number] Methodi 00:00:00 00:00:[address] 3.430.2.7 Hospit a .3.329719 l .8 2021-10-05 2021-10-05 Documentat Chace, 1.2.840.1 [id number] 21 [id number] Methodi 00:00:00 00:00:00 isabelle Ortiz 84101.1.[address] 3.430.2.7 Hospit a .3.555707 l .8 2021-10-05 2021-10-05 Documentat Chace, 1.2.840.1 [id number] 21 [id number] Methodi 00:00:00 00:00:[address]iz [address].1.[address] 3.430.2.7 Hospit a .3.546244 l .8 2021-09-22 2021-09-22 Travel 1.2.840.1 1.2.712.047 0159 518501 Methodi 00:00:00 00:00:[address] 3.430.2.7 0.2.7.3.698 Ho spita .3.672414 084.8 l .8 2021-08-23 2021-08-23 Ambulatory nullFlavo MNA [id number] Memoria 14:15:00 14:15:00 Pre-Reg r Neurology 06 l Estelle Kleinann 2021-08-23 2021-08-23 Ambulatory nullFlavo MNA [id number] Memoria 14:15:00 14:15:00 Pre-Reg r Neurology 06 l Estelle Kleinann 2021-08-23 2021-08-23 Outpatient STEFANI KO [id number] Memoria 08:15:00 08:15:00 Herminia ferris Lewis 2021-08-23 2021-08-23 [id number] 08:15:00 08:15:00 Farhan Herminia Don 2021-07-12 2021-07-12 Ambulatory nullFlavo MNA [id number] Memoria 14:15:00 14:15:00 Pre-Reg r Neurology 05 josy Mccabe Lewis 2021-07-12 2021-07-12 Ambulatory nullFlavo MNA [id number] Memoria 14:15:00 14:15:00 Pre-Reg r Neurology 05 l Cantwell Lewis 2021-07-12 2021-07-12 Outpatient CORWIN Michel [facility] [id number] 08:15:00 08:15:00 Farhan 05 Arian 2021-06-14 2021-06-14 Telephone Kiko Valdez2.840.1 [id number] Methodi 00:00:00 00:00:[address] 3.430.2.7 Hospit a .3.880102 l .8 2021-06-01 2021-06-01 Outpatient MHIE ELIANA [id number] Memoria 09:00:00 09:00:00 05 josy Saucedo 2021-05-19 2021-05-19 Ambulatory nullFlavo MNA [id number] Memoria 14:15:00 14:15:00 Pre-Reg r Neurology 04 l Estelle Saucedo 2021-05-19 2021-05-19 Ambulatory nullFlavo MNA [id number] Memoria 14:15:00 14:15:00 Pre-Reg r Neurology 04 l Estelle Saucedo 2021-05-19 2021-05-19 [facility] [id number] 08:15:00 08:15:00 Farhan 04 Arian 2021-05-10 2021-05-10 Outpatient MHIE ELIANA [id number] Memoria 15:45:00 15:45:00 04 josy Saucedo 2021-03-31 2021-03-31 Ambulatory nullFlavo MNA [id number] Memoria 13:15:00 13:15:00 Pre-Reg r Neurology 03 l Estelle Kleinann 2021-03-31 2021-03-31 Ambulatory nullFlavo MNA [id number] Memoria 13:15:00 13:15:00 Pre-Reg r Neurology 03 l Estelle Kleinann 2021-03-31 2021-03-31 Outpatient MHIE ELIANA [id number] Memoria 08:15:00 08:15:00 03 josy Fitzhugh 2021-03-31 2021-03-31 [facility] [id number] 08:15:00 08:15:00 Farhan 03 Arian 2021-02-23 2021-02-24 Outpatient nullFlavo MNA [id number] Memoria 20:00:00 04:59:59 r Neurology 02 l Estelle Saucedo 2021-02-23 2021-02-24 Outpatient nullFlavo MNA [id number] Memoria 20:00:00 04:59:59 r Neurology 02 l Estelle Saucedo 2021-02-23 2021-02-23 Outpatient [facility] [id number] 15:00:00 23:59:59 Farhan Laurie Arian 2021-02-23 2021-02-23 Outpatient MHIE IE [id number] Memoria 15:00:00 15:00:00 02 josy Saucedo 2020-10-14 2020-10-14 Surgery [facility] 1.2.840.114 [id number] 08:34:00 09:10:00 Greg 350.1.13.10 Keegan 4.2.7.2.686 Surgical [id number] [place] [id number] 2020-10-14 2020-10-14 Surgery Aleisha [facility] 1.2.840.[id number] [place] [address] 08:34:00 09:10:00 Fausto Garza 350.1.13.10 i [facility] [place] [place] 4[place]2.7.2.686 [place] [id number] [address] 2020-10-12 2020-10-12 Manager Latin Jyoti, [facility] 1.2.840.114 [id number] 11:40:06 11:55:06 Visit Lab Main Greg 350.1.13.10 [place] 4.2.7.2.686 Profess[place] [id number] [address] 2020-10-12 2020-10-12 Manager Latin Jyoti, [facility] Lab Main [facility] 1.2.8 40.114 [id number] [facility] 11:40:06 11:55:06 Visit Fausto Moraes 350.1.1 3.10 [place] of [place] [id number] Md dical [address] 2020-10-12 2020-10-12 Laboratory Only, [facility] 1.2.840.114 [id number] 11:34:36 11:49:36 Only Test [place] 350.1.13.10 [place] 4.2.7.2.686 [place] [id number] 353 2020-10-12 2020-10-12 Laboratory Only, Adc Test [facility] 1.2.840. 114 [id number] Univers 11:34:36 11:49:36 Only Fausto Moraes 350.1.1 3.10 ity of [place]2.7.2.686 [place] [id number] [place] [address] [place] 2020-10-12 2020-10-12 [facility] [id number] 497 [facility] 10:45:00 10:45:00 FAUSTO adam [facility] 2020-10-12 2020-10-12 Orders Doctor VELOZ 1.2.840.114 [id number] 00:00:00 00:00:00 Only Unassigned, CINDY 350.1.13.10 [place] [facility] 4.2.7.2.686 [id number] 009 2020-10-12 2020-10-12 Orders Doctor VELOZ 1.2.840.114 [id number] Univers 00:00:00 00:00:00 Only Unassigned, CINDY 350.1.13.10 ity of [place] [facility] 4.2.7.2.686 [place] [phone] [place] [address] [place] 2020-05-13 2020-05-14 Outpatient CINDY ANGELLAAUSTIN [facility] 021 [id number] [place] 00:00:00 00:00:[address] 2020-05-11 2020-05-11 Outpatient AMY [facility] 2100 [id number] [place] 00:00:00 00:00:00 IMRAN [address] 2020-04-01 2020-04-01 [facility] 1.2.840.114 [id number] 06:36:00 10:10:00 Encounter Fausto Garza 350.1.13.10 [place] 4.2.7.2.686 Surgical [id number] [place] 071 2020-04-01 2020-04-01 [facility] 1.2.840.114 [id number] [facility] 06:36:00 10:10:00 Encounter Fausto Garza 350.1.13.10 [place] of [place]7.2.686 [place] [id number] [facility] 071 [place] 2020-04-01 2020-04-01 Anesthesia Demetrio Christensen [facility] 1.2.840.11 4 [id number] 08:01:00 08:33:00 [place] [facility] [place] 350.1.13.10 [place] 4.2.7.2.686 Surgical [id number] [place] 020 2020-04-01 2020-04-01 Anesthesia Demetrio Christensen [facility] 1.2.840.11 4 [id number] Univers 08:01:00 08:33:00 [facility] Greg 350.1.13.10 ity of [place]2.[place] [id number] [facility] 020 [place] 2020-03-31 2020-03-31 Outpatient R ALEISHA [facility] [id number] Univers 09:30:00 09:30:00 FAUSTO ity of [facility] 2020-03-30 2020-03-30 Outpatient R [facility] [id number] Univers 12:45:00 12:45:00 ity [facility] 2020-03-30 2020-03-30 Laboratory Only, Adc Test [facility] 1.2.840. 114 [id number] Univers 11:17:56 11:32:56 Only Fausto Moraes 350.1.1 3.10 [place]2.7.2.[place] [id number] [facility] [address] [place] 2020-03-30 2020-03-30 Orders Doctor ROSELIA 1.2.840.114 [id number] Univers 00:00:00 00:00:00 Only Unassigned, CINDY 350.1.13.10 ity of [place] [facility] 4.2.7.2.686 [place] [id number] [facility] 009 [place] 2020-03-25 2020-03-25 Outpatient AMY, [facility] 021 2100 [id number] [place] 00:00:00 00:00:00 TUSHAR 879 Method i 2020-03-23 2020-03-23 Manager Latin Jyoti, Adc Lab Main [facility] 1.2.8 40.114 [id number] [facility] 15:51:10 16:06:10 Visit Fausto Moraes 350.1.1 3.10 jair [place] 4.2.7.2.686 Jonelle Milner [id number] Md dical [address] 2020-03-23 2020-03-23 Outpatient R ALEISHA [facility] [id number] [facility] 16:00:00 16:00:00 FAUSTO adam [facility] 2020-03-23 2020-03-23 Outpatient AMY, [facility] 2100 [id number] [place] 00:00:00 00:00:00 IMRAN [address] 2020-03-23 2020-03-23 Outpatient WOTJELIANAMARÍA ELENA [facility] 021 [id number] [place] 00:00:00 00:00:00 KI, [address] Results Test Description Test Time Test Comments Results Result Comments Source GLUCOSE BEDSIDE 2022-07-07 15:54:00 Test Item Value Reference Range Interpretation Comme nts GLUCOSE BEDSIDE (test code = 122 MG/DL 70-110 H Performed by certified 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 [facility] GLUCOSE [id number] 12:13:00 Test Item Value Reference Range Interpretation Comments GLUCOSE BEDSIDE (test 156 MG/DL 70-110 H Perfor med by certified code = GLUBED) 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 [facility] GLUCOSE [id number] 10:42:00 Test Item Value Reference Range Interpretation Comments GLUCOSE BEDSIDE (test 181 MG/DL 70-110 H Perfor med by certified code = GLUBED) 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 [facility] GLUCOSE [id number] 20:05:00 Test Item Value Reference Range Interpretation Comments GLUCOSE BEDSIDE (test 90 MG/DL 70-110 N Perfor med by certified code = GLUBED) 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 [facility] GLUCOSE [id number] 15:46:00 Test Item Value Reference Range Interpretation Comments GLUCOSE BEDSIDE (test 212 MG/DL 70-110 H Perfor med by certified code = GLUBED) 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 [facility] GLUCOSE [id number] 12:44:00 Test Item Value Reference Range Interpretation Comments GLUCOSE BEDSIDE (test 120 MG/DL 70-110 H Perfor med by certified code = GLUBED) 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 [facility] BASIC METABOLIC [id number] 08:34:00 Test Item Value Reference Range Interpretation [...] code = 9.5 mg/dL 8.0-10.5 N CA) [id number] 08:34:00 Test Item Value Reference Range Interpretation Comments PHOSPHOROUS (test code = PHOS) 2.3 MG/DL 2.5-4.9 L [id number] 08:34:00 Test Item Value Reference Range Interpretation Comments MAGNESIUM (test code = MAG) 2.18 mg/dL 1.80-2.40 N [id number] 08:29:00 Test Item Value Reference Range Interpretation Comments VANCOMYCIN (test code = VANCO) 20.2 mcg/mL CBC W/AUTO [id number] 08:27:00 Test Item Value Reference Range Interpretation [...] REQUIRED (test code NO = MDIFF) CALCIUM [id number] 08:20:00 Test Item Value Reference Range Interpretation Comments CALCIUM IONIZED (test code = AMILCAR) 1.21 MMOL/L 1.09-1.30 N GLUCOSE [id number] 05:39:00 Test Item Value Reference Range Interpretation Comments GLUCOSE BEDSIDE (test 175 MG/DL 70-110 H Perfor med by certified code = GLUBED) 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 [facility] GLUCOSE [id number] 20:49:00 Test Item Value Reference Range Interpretation Comments GLUCOSE BEDSIDE (test 167 MG/DL 70-110 H Perfor med by certified code = GLUBED) 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 [facility] GLUCOSE [id number] 17:03:00 Test Item Value Reference Range Interpretation Comments GLUCOSE BEDSIDE (test 127 MG/DL 70-110 H Perfor med by certified code = GLUBED) 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 [facility] GLUCOSE [id number] 11:54:00 Test Item Value Reference Range Interpretation Comments GLUCOSE BEDSIDE (test 177 MG/DL 70-110 H Perfor med by certified code = GLUBED) 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 [facility] GLUCOSE [id number] 06:39:00 Test Item Value Reference Range Interpretation Comments GLUCOSE BEDSIDE (test 153 MG/DL 70-110 H Perfor med by certified code = GLUBED) 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 [facility] GLUCOSE [id number] 19:51:00 Test Item Value Reference Range Interpretation Comments GLUCOSE BEDSIDE (test 165 MG/DL 70-110 H Perfor med by certified code = GLUBED) 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 [facility] GLUCOSE [id number] 17:15:00 Test Item Value Reference Range Interpretation Comments GLUCOSE BEDSIDE (test 188 MG/DL 70-110 H Perfor med by certified code = GLUBED) 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 [facility] GLUCOSE [id number] 12:16:00 Test Item Value Reference Range Interpretation Comments GLUCOSE BEDSIDE (test 132 MG/DL 70-110 H Perfor med by certified code = GLUBED) 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 [facility] GLUCOSE [id number] 10:20:00 Test Item Value Reference Range Interpretation Comments GLUCOSE BEDSIDE (test 131 MG/DL 70-110 H Perfor med by certified code = GLUBED) 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 [facility] CBC W/AUTO [id number] 08:33:00 Test Item Value Reference Range Interpretation [...] (test code NO = MDIFF) BASIC METABOLIC [id number] 07:37:00 Test Item Value Reference Range Interpretation [...] code = 10.1 mg/dL 8.0-10.5 N CA) [id number] 07:37:00 Test Item Value Reference Range Interpretation Comments PHOSPHOROUS (test code = PHOS) 3.4 MG/DL 2.5-4.9 N [id number] 07:37:00 Test Item Value Reference Range Interpretation Comments MAGNESIUM (test code = MAG) 2.31 mg/dL 1.80-2.40 [id number] 06:49:00 Test Item Value Reference Range Interpretation Comments VANCOMYCIN (test code = VANCO) 19.9 mcg/mL GLUCOSE [id number] 06:17:00 Test Item Value Reference Range Interpretation Comments GLUCOSE BEDSIDE (test 173 MG/DL 70-110 H Perfor med by certified code = GLUBED) 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 Reason: left foot ulcers EXAMS: CPT CODE: [id number] NM BONE 3 PHASE 85419 PROCEDURE INFORMATION: Exam: NM Bone and/or Joint, [...] feet were then performed for delayed imaging inthe multiple projections. COMPARISON: No relevant prior studies [...] the foot of the left foot performed June. These demonstrate Kathya deformity and a plantar [...] 1 Signed Report (CONTINUED) FAX: Delmy [place] [phone] [place]: St: ADM FAX: Kasey Ochoa [phone] FAX: Jim Mazariegos MD [phone] FAX: Adonis Canchola MD [phone] Name: ÁNGELAJENN J [facility] : 1955 Age/S: 67/F [address] [place] [address] Unit #: [id number] Loc: [address] [address] Phys: Kasey Mendez MD Acct: [id number] Dis Date: Status: ADM IN PHONE #: [phone] Exam Date: 07/04/2022 1506 FAX #: [phone] Reason: left foot ulcers EXAMS: CPT CODE: [id number] NM BONE 3 PHASE 64732 (Continued) noted on the left foot plain radiographs. at 1850 Reported and signed by: Gus Moura M.D. CC: Delmy Ashton MD; Kasey Mendez MD; Jim Dhillon MD; Adonis Gaytan MD Technologist: NITA Daniel (N)(CT); ... Trnscrd Date/Time/By: 07/04/2022 (1849) : By: [email or web address] Orig Print D/T: S: 07/04/2022 (1849) PAGE 2 Signed ReportGLUCOSE [id number] 20:34:00 Test Item Value Reference Range Interpretation Comments GLUCOSE BEDSIDE (test 167 MG/DL 70-110 H Perfor med by certified code = GLUBED) 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 [facility] GLUCOSE [id number] 15:58:00 Test Item Value Reference Range Interpretation Comments GLUCOSE BEDSIDE (test 131 MG/DL 70-110 H Perfor med by certified code = GLUBED) 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 [facility] GLUCOSE [id number] 11:38:00 Test Item Value Reference Range Interpretation Comments GLUCOSE BEDSIDE (test 202 MG/DL 70-110 H Perfor med by certified code = GLUBED) 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 [facility] BASIC METABOLIC [id number] 08:17:00 Test Item Value Reference Range Interpretation [...] race indifferent and is the recommended for [facility] for GFRby the [facility] for Adults.The GFR will not calculate if th e sex is unknown or if thepatient's ag e is <18 years. CREATININE (test 4.5 mg/dL 0.6-1.3 H code = CREAT) CALCIUM (test code = 9.2 mg/dL 8.0-10.5 N CA) CBC W/AUTO [id number] 07:54:00 Test Item Value Reference Range Interpretation [...] REQUIRED (test code NO = MDIFF) GLUCOSE [id number] 05:40:00 Test Item Value Reference Range Interpretation Comments GLUCOSE BEDSIDE (test 170 MG/DL 70-110 H Perfor med by certified code = GLUBED) 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 [facility] GLUCOSE [id number] 19:15:00 Test Item Value Reference Range Interpretation Comments GLUCOSE BEDSIDE (test 154 MG/DL 70-110 H Perfor med by certified code = GLUBED) 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 [facility] GLUCOSE [id number] 17:40:00 Test Item Value Reference Range Interpretation Comments GLUCOSE BEDSIDE (test 134 MG/DL 70-110 H Perfor med by certified code = GLUBED) 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 [facility] GLUCOSE [id number] 11:39:00 Test Item Value Reference Range Interpretation Comments GLUCOSE BEDSIDE (test 156 MG/DL 70-110 H Perfor med by certified code = GLUBED) 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 [facility] GLUCOSE [id number] 08:37:00 Test Item Value Reference Range Interpretation Comments GLUCOSE BEDSIDE (test 222 MG/DL 70-110 H Perfor med by certified code = GLUBED) 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 [facility] BASIC METABOLIC [id number] 06:58:00 Test Item Value Reference Range Interpretation [...] the recommended for bhumika for GFRby the [facility] for Adults.The GFR will not calculate if th e sex is unknown or if thepatient's ag e is <18 years. CREATININE (test 3.4 mg/dL 0.6-1.3 H code = CREAT) CALCIUM (test code = 9.0 mg/dL 8.0-10.5 N CA) [id number] 06:58:00 Test Item Value Reference Range Interpretation Comments PHOSPHOROUS (test code = PHOS) 3.0 MG/DL 2.5-4.9 [id number] 06:58:00 Test Item Value Reference Range Interpretation Comments MAGNESIUM (test code = MAG) 1.89 mg/dL 1.80-2.40 N CALCIUM [id number] 06:58:00 Test Item Value Reference Range Interpretation Comments CALCIUM IONIZED (test code = AMILCAR) 1.11 MMOL/L 1.09-1.30 N CBC W/AUTO [id number] 06:47:00 Test Item Value Reference Range Interpretation [...] REQUIRED (test code NO = MDIFF) GLUCOSE [id number] 21:27:00 Test Item Value Reference Range Interpretation Comments GLUCOSE BEDSIDE (test 224 MG/DL 70-110 H Perfor med by certified code = GLUBED) 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 [facility] GLUCOSE [id number] 16:50:00 Test Item Value Reference Range Interpretation Comments GLUCOSE BEDSIDE (test 174 MG/DL 70-110 H Perfor med by certified code = GLUBED) 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 [facility] BASIC METABOLIC [id number] 15:03:00 Test Item Value Reference Range Interpretation [...] the recommended for bhumika for GFRby the [facility] for Adults.The GFR will not calculate if th e sex is unknown or if thepatient's ag e is <18 years. CREATININE (test 5.0 mg/dL 0.6-1.3 H code = CREAT) CALCIUM (test code = 9.1 mg/dL 8.0-10.5 N CA) POC ARTERIAL BLOOD [id number] 14:28:00 Test Item Value Reference Range Interpretation Comments POC ARTERIAL BLOOD GAS PH (test 7.343 7.35-7.45 L code = POCPHA) POC ARTERIAL BLOOD GAS PCO2 (test 47.7 mmHg 35.0-45 H code = YYIVQR5J) POC TCO2 ARTERIAL (test code = 27.4 POCTCO2) POC ARTERIAL BLOOD GAS PO2 (test 105.9 mmHg 80-100.0 H code = NTFVK3U) POC HCO3 ARTERIAL (test code = 25.9 MMOL/L 22.0-26.0 N [id number]) POC BASE EXCESS (test code = 0.2 MMOL/L -4.0-4.0 N POCBEA) POC O2 SATURATION (test code = 97.7 % 90-100 N POCO2S) BASIC METABOLIC [id number] 14:28:00 Test Item Value Reference Range Interpretation [...] = POCGLU) 188 MG/DL 70-110 H HEMOGLOBIN [id number] 14:28:00 Test Item Value Reference Range Interpretation Comments HEMOGLOBIN ABG (test code = 10.0 G/DL 11.0-15.0 L HGB/ABG) [id number] 14:28:00 Test Item Value Reference Range Interpretation Comments HEMATOCRIT (test code = HCT/ABG) 29 % 33.0-45.0 L POC LACTIC [id number] 14:28:00 Test Item Value Reference Range Interpretation Comments POC LACTIC ACID (test code = 1.3 mmol/l 0.9-1.7 N POCLAC) GLUCOSE [id number] 14:10:00 Test Item Value Reference Range Interpretation Comments GLUCOSE BEDSIDE (test 182 MG/DL 70-110 H Perfor med by certified code = GLUBED) 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 [facility] GLUCOSE [id number] 10:38:00 Test Item Value Reference Range Interpretation Comments GLUCOSE BEDSIDE (test 251 MG/DL 70-110 H Perfor med by certified code = GLUBED) 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 [facility] [id number] 08:07:00 Test Item Value Reference Range Interpretation Comments VANCOMYCIN (test code = VANCO) 22.4 mcg/mL COMMENTS: [facility] executive director: draw vanc level before dialysis on Sunday 07/01BASIC METABOLIC [id number] 07:58:00 Test Item Value Reference Range Interpretation [...] code = 9.7 mg/dL 8.0-10.5 N CA) [id number] 07:58:00 Test Item Value Reference Range Interpretation Comments PHOSPHOROUS (test code = PHOS) 4.6 MG/DL 2.5-4.9 N [id number] 07:58:00 Test Item Value Reference Range Interpretation Comments MAGNESIUM (test code = MAG) 2.20 mg/dL 1.80-2.40 N CBC W/AUTO [id number] 07:39:00 Test Item Value Reference Range Interpretation [...] REQUIRED (test code NO = MDIFF) GLUCOSE [id number] 05:20:00 Test Item Value Reference Range Interpretation Comments GLUCOSE BEDSIDE (test 148 MG/DL 70-110 H Perfor med by certified code = GLUBED) 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 [email or web address] [facility] - XR CHEST 1 [id number] 00:00:00 [facility] 1955 Sex: F FAX: Delmy [place] [phone] [place]: St: ADM FAX: Serge Shetty MD FAX: Jim Mazariegos MD [phone] FAX: Adonis Canchola MD [phone] Name: PATKathieJENN Walter [facility] : 1955 Age/S: 67/F [address] [place] [address] Unit #: [id number] Loc: G.3307 [place] [address] Phys: Serge Shetty MDAcct: [id number] Dis Date: Status: ADM IN PHONE #: [phone] Exam Date: 07/01/2022 153 FAX #: [phone] Reason: hypoxia EXAMS: CPT CODE: [id number] XR CHEST 1 V 28282 PROCEDURE INFORMATION: Exam: XR Chest Exam date [...] may represent pulmonary edema, pneumonitis and/or atelectasis. El ectronically Signed by Amador Mora on 07/01/2022 at 1741 Reported and signed by: Sha Mora M.D. CC: Delmy Ashton MD; Serge Shetty MD; Jim Dhillon MD; Adonis Gaytan MD Technologist: RT Max(R) Trnscrd Date/Time/By: 07/01/2022 (1740) : By: [email or web address] Orig Print D/T: S: 07/01/2022 (1740) PAGE 1 Signed Report- US PELVIS [id number] 00:00:00 [facility] : 1955 Sex: F Name: JENN MOTTA [facility] : 1955 Age/S: 67 / F [address] [place], [place] [address]vd Unit #: [id number] Loc: [place] [address] Phys: Adonis Gaytan MD Acct: [id number] Dis Date: Status: ADM IN PHONE #: [phone] Exam Date: 07/01/2022 1406 FAX #: [phone] Reason: DUB...2 weeks of bleedingafter 15 years of men EXAMS: CPT CODE: [id number] US PELVIS COMPLETE 61445 PROCEDURE INFORMATION: Exam: US Pelvis Complete, Transabdominal and US Pelvis, Transvaginal Exam date and time: 07/01/2022 1:27PM Age: 67 years old Clinical indication: Other: [...] Cervix: Fluid in the endocervical canal. Nabothian cysts.Right ovary/adnexa: Right ovary not visualized due to overlying bowel gas. Left ovary/adnexa: Left ovary not visualized due to overlying bowel gas. Intraperitoneal space: No free fluid is seen. Urinarybladder: The bladder is not imaged. IMPRESSION: Limited exam 1. Probable uterine fibroids. If further delineation is desired, an MRI pelvis without and with IV contrast can be obtained. 2. Fluid in theendocervical canal of uncertain etiology, may be related to history of bleeding. 3. Ovaries not visualized. at 1433 Reported and signed by: Vladimir Moran M.D. CC: Delmy Ashton MD; Jim Dhillon MD; Adonis Gaytan MD Technologist: Karol Quinn RDMS(AB)(OB) Trnscb Date/Time: 07/01/2022 (1433) Donna Orig Print D/T: S: 07/01/2022 (5214) Pro be: PAGE 1 Signed Report- US TRANSVAGINAL NON [id number] 00:00:00 [facility] SHOSHANA HERNANDEZName: JENN MOTTA : 1955 Sex: F Name: JENN MOTTA [facility] Shoshana Hernandez : 1955 Age/S: 67 / F [address] [place] [address] Bl Unit #: [id number] Loc: [place] [address] Phys: Adonis Gaytan MD Acct: [id number] Dis Date: Status: ADM IN PHONE #: [phone] Exam Date: 07/01/2022 1407 FAX #: [phone] Reason: see US Pelvic Non OB Complete EXAMS: CPT CODE: [id number] [place] [address] PROCEDURE INFORMATION: Exam: US Pelvis Complete, Transabdominal and US Pelvis, Transvaginal Exam date and time: 07/01/2022 1:27 PM Age: 67 years old Clinical indication: Other: Post menopausal bleeding; Additional info: Dub. . () TECHNIQUE: Imaging protocol: Real-time complete transabdominal and transvaginal pelvic ultrasound with image docume ntation. Transvaginal imaging was used for better evaluation [...] 1. Probable uterine fibroids. If further delineation isdesired, an MRI pelvis without and with IV contrast can be obtained. 2. Fluid in the endocervical canal of uncertain etiology, may be related to history of bleeding. 3. Ovaries not visualized. at 1433 Reported and signed by: Vladimir Moran M.D. CC: Delmy Ashton MD; Jim Dhillon MD; Adonis Gaytan MD Technologist: Karol Quinn RDMS(AB)(OB)Trnscb Date/Time: 07/01/2022 (1433) [email or web address] Orig Print D/T: S: 07/01/2022 (1434) Probe: [id number] PAGE 1 Signed ReportGLUCOSE [id number] 19:48:00 Test Item Value Reference Range Interpretation Comments GLUCOSE BEDSIDE (test 143 MG/DL 70-110 H Perfor med by certified code = GLUBED) 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 [facility] GLUCOSE [id number] 18:11:00 Test Item Value Reference Range Interpretation Comments GLUCOSE BEDSIDE (test 152 MG/DL 70-110 H Perfor med by certified code = GLUBED) 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 [facility] GLUCOSE [id number] 13:24:00 Test Item Value Reference Range Interpretation Comments GLUCOSE BEDSIDE (test 120 MG/DL 70-110 H Perfor med by certified code = GLUBED) 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 [facility] BASIC METABOLIC [id number] 09:03:00 Test Item Value Reference Range Interpretation [...] 9.6 mg/dL 8.0-10.5 N CA) CBC W/AUTO [id number] 07:48:00 Test Item Value Reference Range Interpretation [...] REQUIRED (test NO code = MDIFF) GLUCOSE [id number] 20:09:00 Test Item Value Reference Range Interpretation Comments GLUCOSE BEDSIDE (test 172 MG/DL 70-110 H Perfor med by certified code = GLUBED) 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 [facility] GLUCOSE [id number] 15:48:00 Test Item Value Reference Range Interpretation Comments GLUCOSE BEDSIDE (test 108 MG/DL 70-110 N Perfor med by certified code = GLUBED) 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 [facility] GLUCOSE [id number] 11:35:00 Test Item Value Reference Range Interpretation Comments GLUCOSE BEDSIDE (test 172 MG/DL 70-110 H Perfor med by certified code = GLUBED) 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 [facility] GLUCOSE [id number] 08:25:00 Test Item Value Reference Range Interpretation Comments GLUCOSE BEDSIDE (test 186 MG/DL 70-110 H Perfor med by certified code = GLUBED) 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 [facility] BASIC METABOLIC [id number] 07:50:00 Test Item Value Reference Range Interpretation [...] code = 9.3 mg/dL 8.0-10.5 N CA) [id number] 07:50:00 Test Item Value Reference Range Interpretation Comments PHOSPHOROUS (test code = PHOS) 5.5 MG/DL 2.5-4.9 H [id number] 07:50:00 Test Item Value Reference Range Interpretation Comments MAGNESIUM (test code = MAG) 2.32 mg/dL 1.80-2.40 N CBC W/AUTO [id number] 07:28:00 Test Item Value Reference Range Interpretation [...] REQUIRED (test code NO = MDIFF) GLUCOSE [id number] 19:59:00 Test Item Value Reference Range Interpretation Comments GLUCOSE BEDSIDE (test 141 MG/DL 70-110 H Perfor med by certified code = GLUBED) 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 [facility] GLUCOSE [id number] 18:58:00 Test Item Value Reference Range Interpretation Comments GLUCOSE BEDSIDE (test 156 MG/DL 70-110 H Perfor med by certified code = GLUBED) 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 [facility] GLUCOSE [id number] 11:35:00 Test Item Value Reference Range Interpretation Comments GLUCOSE BEDSIDE (test 112 MG/DL 70-110 H Perfor med by certified code = GLUBED) 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 [facility] GLUCOSE [id number] 09:19:00 Test Item Value Reference Range Interpretation Comments GLUCOSE BEDSIDE (test 167 MG/DL 70-110 H Perfor med by certified code = GLUBED) 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 [facility] BASIC METABOLIC [id number] 08:14:00 Test Item Value Reference Range Interpretation [...] the recommended for bhumika for GFRby the [facility].The GFR will not calculate if th e sex is unknown or if thepatient's ag e is <18 years. CREATININE (test 3.9 mg/dL 0.6-1.3 H code = CREAT) CALCIUM (test code = 9.1 mg/dL 8.0-10.5 N CA) BASIC METABOLIC [id number] 06:43:00 Test Item Value Reference Range Interpretation [...] the recommended for bhumika for GFRby the [facility] Ad[facility].The GFR will not calculate if th e sex is unknown or if thepatient's ag e is <18 years. CREATININE (test 3.9 mg/dL 0.6-1.3 H code = CREAT) CALCIUM (test code = 9.3 mg/dL 8.0-10.5 N CA) COMMENTS: To be done morning of Heart CathCBC W/AUTO [id number] 06:23:00 Test Item Value Reference Range Interpretation [...] To be done morning of Heart CathGLUCOSE [id number] 21:04:00 Test Item Value Reference Range Interpretation Comments GLUCOSE BEDSIDE (test 99 MG/DL 70-110 N Perfor med by certified code = GLUBED) 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 [facility] GLUCOSE [id number] 16:53:00 Test Item Value Reference Range Interpretation Comments GLUCOSE BEDSIDE (test 147 MG/DL 70-110 H Perfor med by certified code = GLUBED) 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 [facility] GLUCOSE [id number] 15:43:00 Test Item Value Reference Range Interpretation Comments GLUCOSE BEDSIDE (test 154 MG/DL 70-110 H Perfor med by certified code = GLUBED) 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 [facility] [id number] 14:34:00 Test Item Value Reference Range Interpretation Comments ACT-ISTAT (test code 281 SEC 74-137 H Perform ed by certified = ACTI) 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 [facility] [id number] 08:42:00 Test Item Value Reference Range Interpretation Comments HGBA1C% (test code = HGBA1C%) 5.8 %A1C 4.8-6.0 N GLUCOSE [id number] 08:37:00 Test Item Value Reference Range Interpretation Comments GLUCOSE BEDSIDE (test 171 MG/DL 70-110 H Perfor med by certified code = GLUBED) 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 [facility] CBC W/AUTO [id number] 08:24:00 Test Item Value Reference Range Interpretation [...] (test code NO = MDIFF) BASIC METABOLIC [id number] 07:56:00 Test Item Value Reference Range Interpretation [...] 9.4 mg/dL 8.0-10.5 N CA) COAGULATION TIME [id number] 07:05:00 Test Item Value Reference Range Interpretation Comments COAGULATION TIME 245 SECONDS Performed b y ACTIVATED (test code = certi fied wire coating operator metal ACT) at [facility] COAGULATION TIME [id number] 07:05:00 Test Item Value Reference Range Interpretation Comments COAGULATION TIME 234 SECONDS Performed b y ACTIVATED (test code = certi fied wire coating operator metal ACT) at [facility] GLUCOSE [id number] 06:07:00 Test Item Value Reference Range Interpretation Comments GLUCOSE BEDSIDE (test 170 MG/DL 70-110 H Perfor med by certified code = GLUBED) 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 [facility] GLUCOSE [id number] 19:40:00 Test Item Value Reference Range Interpretation Comments GLUCOSE BEDSIDE (test 143 MG/DL 70-110 H Perfor med by certified code = GLUBED) 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 [facility] [id number] 17:22:00 Test Item Value Reference Range Interpretation Comments ACT-ISTAT (test code 275 SEC 74-137 H Perform ed by certified = ACTI) 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 [facility] [id number] 16:11:00 Test Item Value Reference Range Interpretation Comments ACT-ISTAT (test code 251 SEC 74-137 H Perform ed by certified = ACTI) 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 [facility] GLUCOSE [id number] 14:10:00 Test Item Value Reference Range Interpretation Comments GLUCOSE BEDSIDE (test 192 MG/DL 70-110 H Perfor med by certified code = GLUBED) 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 [facility] GLUCOSE [id number] 11:52:00 Test Item Value Reference Range Interpretation Comments GLUCOSE BEDSIDE (test 215 MG/DL 70-110 H Perfor med by certified code = GLUBED) 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 [facility] COVID 19 Asymptomatic IH [id number] 10:33:00 Test Item Value Reference Range Interpretation [...] moderate, high or waivedcomplexit y tests. GLUCOSE [id number] 08:19:00 Test Item Value Reference Range Interpretation Comments GLUCOSE BEDSIDE (test 220 MG/DL 70-110 H Perfor med by certified code = GLUBED) 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 [facility] COMPREHENSIVE METABOLIC [id number] 07:53:00 Test Item Value Reference Range Interpretation [...] bhumika for GFRby the [facility].The GFR will [...] 20-125 H TOTAL (test code = ALKP) [id number] 07:53:00 Test Item Value Reference Range Interpretation Comments PHOSPHOROUS (test code = PHOS) 6.8 MG/DL 2.5-4.9 H [id number] 07:53:00 Test Item Value Reference Range Interpretation Comments MAGNESIUM (test code = MAG) 2.24 mg/dL 1.80-2.40 GLUCOSE [id number] 06:28:00 Test Item Value Reference Range Interpretation Comments GLUCOSE BEDSIDE (test 214 MG/DL 70-110 H Perfor med by certified code = GLUBED) 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 [facility] CBC W/AUTO [id number] 05:40:00 Test Item Value Reference Range Interpretation [...] To be done morning of Heart CathRBC [id number] 05:40:00 Test Item Value Reference Range Interpretation Comments ANISOCYTOSIS (test code = ANISO) SLIGHT MACROCYTOSIS (test code = MACR) FEW COMMENTS: To be done morning of Heart Cath- XR FOOT 3 + V [id number] 00:00:00 [facility] 1955 Sex: F FAX: Delmy Howell [phone] [place]: St: [facility] FAX: Sybil Marques MD [phone] FAX:Jim Mazariegos MD [phone] Name: JENN MOTTA [facility] : 1955 Age/S: 67/F [address] [place] [address] Blvd Unit #: [id number] Loc: [address] [place] [address] Phys: Sybil Byers MD Acct: [id number] Dis Date: Status: ADM IN PHONE #: [phone] Exam Date: 06/25/2022 1610 FAX #: [phone] Reason: L foot ulcers EXAMS: CPT CODE: [id number] XR FOOT 3 + [place] [address] PROCEDURE INFORMATION: Exam: XR Left Foot Exam date and time: 06/25/2022 3:37 PM Age: 67 years old Clinical indication: Other: L foot ulcersTECHNIQUE: Imaging protocol: Radiologic exam of the Left [...] metatarsophalangeal joint. No acute fracture or dislocation. Vascular calcifications seen about the left foot and ankle. No plain film evidence of osteomyelitis. Notes: If there is further concern, recommend follow-up ra diographs or MRI for complete assessment. IMPRESSION: Soft tissue swelling is seen about the left foot and ankle. Moderate calcaneal spurring at the Achilles tendon and plantar fascia tendon insertion sites. There appears to be prior deformity of the mid shaft to head of the left 1st proximal phalanx.Mild degenerative changes about the left 1st interphalangeal joint and slight degenerative changes about the left 1st metatarsophalangeal joint. No acute fracture or dislocation. No plain film evidenceof osteomyelitis. at 0842 Reported and signed by: Jett Mosher M.D. CC: Delmy Ashton MD; Sybil Byers MD; Jim Dhillon MD Technologist: Sharmaine Lowry RT(R) Trnscrd Date/Time/By: 06/26/2022 (0842) : By: [email or web address] Orig Print D/T: S: 06/26/2022 (0842) PAGE 1 Signed ReportGLUCOSE [id number] 19:44:00 Test Item Value Reference Range Interpretation Comments GLUCOSE BEDSIDE (test 198 MG/DL 70-110 H Perfor med by certified code = GLUBED) 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 [facility] GLUCOSE [id number] 16:13:00 Test Item Value Reference Range Interpretation Comments GLUCOSE BEDSIDE (test 189 MG/DL 70-110 H Perfor med by certified code = GLUBED) 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 [facility] GLUCOSE [id number] 11:12:00 Test Item Value Reference Range Interpretation Comments GLUCOSE BEDSIDE (test 186 MG/DL 70-110 H Perfor med by certified code = GLUBED) 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 [facility] CBC W/AUTO [id number] 10:49:00 Test Item Value Reference Range Interpretation [...] MDIFF) COMMENTS: Daily while on HeparinCOMPREHENSIVE METABOLIC [id number] 07:37:00 Test Item Value Reference Range Interpretation [...] bhumika for GFRby the N [facility].The GFR will [...] H TOTAL (test code = ALKP) GLUCOSE [id number] 05:53:00 Test Item Value Reference Range Interpretation Comments GLUCOSE BEDSIDE (test 159 MG/DL 70-110 H Perfor med by certified code = GLUBED) 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 [facility] GLUCOSE [id number] 19:09:00 Test Item Value Reference Range Interpretation Comments GLUCOSE BEDSIDE (test 171 MG/DL 70-110 H Perfor med by certified code = GLUBED) 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 [facility] GLUCOSE [id number] 15:56:00 Test Item Value Reference Range Interpretation Comments GLUCOSE BEDSIDE (test 159 MG/DL 70-110 H Perfor med by certified code = GLUBED) 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 [facility] GLUCOSE [id number] 12:56:00 Test Item Value Reference Range Interpretation Comments GLUCOSE BEDSIDE (test 110 MG/DL 70-110 N Perfor med by certified code = GLUBED) 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 [facility] ACUTE HEPATITIS [id number] 12:08:00 Test Item Value Reference Range Interpretation Comments AB HEPATITIS A IGM (test NON REACTIVE INDEX NON REACT. code = HAVMAB) AG HEPATITIS B SURFACE NON REACTIVE INDEX NonReactive (test code = HBSAG) AB HEPATITIS B CORE IGM NON REACTIVE INDEX NON REACT. (test code = HBCMAB) AB HEPATITIS C (test code NON REACTIVE INDEX NON REACT. = HCVAB) AB HEPATITIS B [id number] 12:08:00 Test Item Value Reference Range Interpretation Comments AB HEPATITIS B 11.7 mIU/mL See_Comment Verified by repeat SURFACE (test code = analysi s Status of HBSAB) Immunity Anti-H Bs Level --- I nconsis tent with Immun ity 0.0 - 9.9Consistent with Immunity >9.9Pe rformed At: [facility] [address] [place], [place] [id number] Kota Ferris MD Ph:[phone] [Automated mess age] The system [email or web address] generated this result transmitted ref erence range: Immunity >9.9. The reference r chikis was not used to interpret this result as normal/abnor mal. BASIC METABOLIC [id number] 08:08:00 Test Item Value Reference Range Interpretation [...] code = 9.9 mg/dL 8.0-10.5 N CA) [id number] 08:08:00 Test Item Value Reference Range Interpretation Comments PHOSPHOROUS (test code = PHOS) 7.1 MG/DL 2.5-4.9 H [id number] 08:08:00 Test Item Value Reference Range Interpretation Comments MAGNESIUM (test code = MAG) 2.64 mg/dL 1.80-2.40 H CBC W/AUTO [id number] 07:09:00 Test Item Value Reference Range Interpretation [...] = MDIFF) COMMENTS: Daily while on HeparinGLUCOSE [id number] 05:45:00 Test Item Value Reference Range Interpretation Comments GLUCOSE BEDSIDE (test 190 MG/DL 70-110 H Perfor med by certified code = GLUBED) 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 [facility] GLUCOSE [id number] 19:34:00 Test Item Value Reference Range Interpretation Comments GLUCOSE BEDSIDE (test 159 MG/DL 70-110 H Perfor med by certified code = GLUBED) 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 [facility] GLUCOSE [id number] 17:04:00 Test Item Value Reference Range Interpretation Comments GLUCOSE BEDSIDE (test 167 MG/DL 70-110 H Perfor med by certified code = GLUBED) 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 [facility] UA RFLX MICR CULT IF [id number] 16:38:00 Test Item Value Reference Range Interpretation [...] for culture: Gross HematuriaSpecimen Description: CLEAN CATCHGLUCOSE [id number] 12:14:00 Test Item Value Reference Range Interpretation Comments GLUCOSE BEDSIDE (test 147 MG/DL 70-110 H Perfor med by certified code = GLUBED) 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 [facility] THROMBOPLASTIN TIME [id number] 11:46:00 Test Item Value Reference Range Interpretation Comments THROMBOPLASTIN TIME 72.0 Seconds 25.0-39.5 H Therape utic Range: PARTIAL (test code = 50.4 - 88.3 Seconds PTT) Effective 10/22/2018 GLUCOSE [id number] 06:01:00 Test Item Value Reference Range Interpretation Comments GLUCOSE BEDSIDE (test 246 MG/DL 70-110 H Perfor med by certified code = GLUBED) 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 [facility] THROMBOPLASTIN TIME [id number] 05:17:00 Test Item Value Reference Range Interpretation Comments THROMBOPLASTIN TIME 53.5 Seconds 25.0-39.5 H Therape utic Range: PARTIAL (test code = 50.4 - 88.3 Seconds PTT) Effective 10/22/2018 CBC W/AUTO [id number] 04:16:00 Test Item Value Reference Range Interpretation [...] Daily while on Heparin- CT CHEST W/O [id number] 00:00:00 [facility] 1955 Sex: F Name: JENN MOTTA [facility] : 1955 Age/S: 67 / F [address] [place] [address] Unit #: [id number] Loc: [place] [address] Phys: Aleja Funk Acct: [id number] Dis Date: Status: ADM INPHONE #: [phone] Exam Date: 06/22/2022 0955 FAX #: [phone] Reason: Dyspnea, CAD EXAMS: CPTCODE: [id number] CT CHEST W/O CONTRAST 08069 PROCEDURE INFORMATION: Exam: CT Chest Without Contrast; [...] bases are atelectatic. Pleural spaces: There is a new small left pleural [...] Report (CONTINUED) Name: JENN MOTTA [facility] : 1955 Age/S: 67 / F [address] [facility] Unit #: [id number] Loc: [place] [address] Phys: Aleja Funk Acct: [id number] Dis Date: Status: ADM IN PHONE #: [phone] Exam Date: 06/22/2022 0955 FAX #: [phone] Reason: Dyspnea, CAD EXAMS: CPT CODE: [id number] CT CHEST W/O CONTRAST 79967 (Continued) 4. There is a small peric ardial effusion, slightly increased in size compared to prior study. 5. There is a small amount of ascites in the visualized abdomen. at 0904 Reported and signed by: Jim Uriostegui M.D. 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 [facility] THROMBOPLASTIN TIME [id number] 21:11:00 Test Item Value Reference Range Interpretation Comments THROMBOPLASTIN TIME 51.2 Seconds 25.0-39.5 H Therape utic Range: PARTIAL (test code = 50.4 - 88.3 Seconds PTT) Effective 10/22/2018 GLUCOSE [id number] 18:42:00 Test Item Value Reference Range Interpretation Comments GLUCOSE BEDSIDE (test 125 MG/DL 70-110 H Perfor med by certified code = GLUBED) 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 [facility] THROMBOPLASTIN TIME [id number] 13:02:00 Test Item Value Reference Range Interpretation Comments THROMBOPLASTIN TIME 40.0 Seconds 25.0-39.5 H Therape utic Range: PARTIAL (test code = 50.4 - 88.3 Seconds PTT) Effective 10/22/2018 PTH INTACT [id number] 12:41:00 Test Item Value Reference Range Interpretation Comments PARATHYROID HORMONE INTACT (test 661.2 pg/mL 14.0-72.0 H code = PARAI) B-TYPE NATRIURETIC [id number] 12:23:00 Test Item Value Reference Range Interpretation Comments B-TYPE NATRIURETIC PEPTIDE (test 557.0 PG/ML 0-100 H code = BNP) PROTHROMBIN [id number] 12:06:00 Test Item Value Reference Range Interpretation [...] (to prevent recurrent infar ct). 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 [facility] THROMBOPLASTIN TIME [id number] 01:28:00 Test Item Value Reference Range Interpretation Comments THROMBOPLASTIN TIME 30.3 Seconds 25.0-39.5 N Therape utic Range: PARTIAL (test code = 50.4 - 88.3 Seconds PTT) Effective 10/22/2018 COMMENTS: DRAW PTT 6 HOURS AFTER INITIATION OF HEPARIN- DUP VEIN [id number] 00:00:00[facility] 1955 Sex: F Name: JENN MOTTA [facility] : 1955 Age/S: 67 / F [address] Unit #: [id number] Loc: [place] [address] Phys: Aleja Funk Acct: [id number] Dis Date: Status: ADM INPHONE #: [phone] Exam Date: 06/22/2022 1510 FAX #: [phone] Reason: Vein mapping for CABG EXAMS: CPT CODE: [id number] DUP VEIN YEIMI 45434 PROCEDURE INFORMATION: Exam: US Duplex Lower Extremity [...] focused on the bilateral lower extremity veins forvein mapping. COMPARISON: US DOP ART SGL LEVEL YEIMI 06/22/2022 10:42 AM FINDINGS: Right superficial veins: Normal Doppler waveforms. Normal compressibility. Greater saphenous vein is patent. Right greater saphenous vein- upper thigh: 4.9 mm Right greater saphenous vein-mid thigh: 6.7 mm Right greater saphenous vein-lower thigh: 5.6 mm Right greater saphenous vein-upper le.9 mm Right greater saphenous vein-mid le.4 mm Right greater saphenous vein- lower le mm Left superficial veins: Normal Doppler waveforms. Normal compressibility. Greater saphenous vein is patent. Left greater saphenous vein- upper thigh: 5.2 mm Left greater saphenous vein-mid thigh: 3.9 mm Left greater saphenous vein-lower thigh: 4.1 mm Left greater saphenous vein-upper le mm Left greater saphenous vein-mid le.5 mm Left greater saphenous vein-lower le.8 mm Soft tissues: Unremarkable. IMPRESSION: Greater saphenous vein is patent. Vein mapping as described. at 1730 Reported and signed by: Glenn Obando M.D. CC: Delmy Ashton MD; Jim Girard MD; Aleja OROZCO Technologist: Monty Thomas Trnscb Date/Time: 06/22/2022 (1729) [id number] Orig Print D/T: S: 06/22/2022 (173) Probe: PAGE 1 Signed Report- DOP ART SGL LEVEL [id number] 00:00:00[facility] JENN [facility] : 1955 Sex: F Name: JENN MOTTA [facility] [place] : 1955 Age/S: 67 / F [address] Unit #: [id number] Loc: [place] [address] Phys: Aleja Funk Acct: [id number] Dis Date: Status: ADM INPHONE #: [phone] Exam Date: 06/22/2022 1509 FAX #: [phone] Reason: PVD EXAMS: CPT CODE: [id number] DOP ART SGL LEVEL YEIMI 42871 PROCEDURE INFORMATION: Exam: US Duplex Lower Extremity [...] 1 Signed Report (CONTINUED) Name: JENN MOTTA [facility] [place] : 1955 Age/S: 67 / F [address] [place] [address] Blvd Unit #: [id number] Loc: [place] [address] Phys: Aleja Funk Acct: [id number] Dis Date: Status: ADM IN PHONE #: [phone] Exam Date: 06/22/2022 1509 FAX #: [phone] Reason: PVD EXAMS: CPT CODE: [id number] DOP ART SGL LEVEL YEIMI 42295 (Continued) CC: Delmy Ashton MD; Jim Dhillon MD; Aleja OROZCO Technologist: Monty Thomas Trnutb Date/Time: 06/22/2022(1654) [email or web address] Orig Print D/T: S: 06/22/2022 (1654) Probe: PAGE 2 Signed Report- DUP EXTRACRANIAL [id number] 00:00:00 [facility]: JENN [facility] : 1955 Sex: F Name: JENN MOTTA [facility] [place] : 1955 Age/S: 67 / F [address] [place] [address] Blvd Unit #: [id number] Loc: [place] [address] Phys: Aleja Funk Acct: [id number] Dis Date: Status: ADM IN PHONE #: [phone] Exam Date: 06/22/2022 1509 FAX #: [phone] Reason: CABG workup EXAMS: CPTCODE: [id number] DUP EXTRACRANIAL YEIMI 80789 PROCEDURE INFORMATION: Exam: US Duplex Bilateral Extracranial [...] stenosis to near occlusion. Near occlusion is amarkedly narrowed lumen. Total occlusion is no detectable patent lumen. at 1807 Reported and signed by: Parmajit Villar M.D. [facility] 1 Signed Report (CONTINUED) Name: JENN MOTTA [facility] : 1955 Age/S: 67 / F[address] Unit #: [id number] Loc: [place] [address] Phys: Aelja Funk Acct: [id number] Dis Date: Status: ADM IN PHONE #: [phone] Exam Date: 06/22/2022 1509 FAX #: [phone] Reason: CABG workup EXAMS: CPT CODE: [id number] DUP EXTRACRANIAL YEIMI 80261 (Continued) CC: Delmy Ashton MD; Jim Dhillon MD; Aleja OROZCO Technologist: Monty Thomas Trnscb Date/Time: 06/22/2022 (1806) t.SDR.[email or web address] Orig Print D/T: S: 06/22/2022 (1807) Probe: PAGE 2 Signed ReportGLUCOSE BEDSIDE 2022-06-21 20:43:00 Test Item Value Reference Range Interpretation Comments GLUCOSE BEDSIDE (test 226 MG/DL 70-110 H [facility] med by certified code = GLUBED) 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 [facility] CBC W/AUTO [id number] 20:20:00 Test Item Value Reference Range Interpretation [...] NOT ALREADY DONE WITHIN LAST 24 HOURSGLUCOSE [id number] 18:45:00 Test Item Value Reference Range Interpretation Comments GLUCOSE BEDSIDE (test 168 MG/DL 70-110 H Perfor med by certified code = GLUBED) 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 [facility] PROTHROMBIN [id number] 18:42:00 Test Item Value Reference Range Interpretation [...] Comments THROMBOPLASTIN TIME 32.1 Seconds 25.0-39.5 N Therap eutic PARTIAL (test code = Range: 50.4 - 88.3 PTT) Seconds Effective 10/22/2018 COMMENTS: IF NOT ALREADY DONE [...] ALKP) COMMENTS: [facility] 16:16:00 Test Item Value Reference Range Interpretation Comments POC glucose (test 89 mg/dL 65-99 Patient Access N desire: Rubni code = 77594-2) EricDevice I D: [id number] able: RN Notified [facility]2022-10-19 16:16:00 Test Item Value Reference Range Interpretation Comments POC glucose (test 89 mg/dL 65-99 Patient Access N desire: Rubin code = 80589-8) EricDevice I D: [id number] able: RN Notified [facility]2022-10-19 16:16:00 Test Item Value Reference Range Interpretation Comments POC glucose (test 89 mg/dL 65-99 Patient Access N desire: Rubin code = 21933-3) EricDevice I D: [id number] able: RN Notified [facility]2022-10-19 16:16:00 Test Item Value Reference Range Interpretation Comments POC glucose (test 89 mg/dL 65-99 Patient Access N desire: Rubin code = 16179-6) EricDevice I D: [id number] able: RN Notified [facility]2022-10-19 16:16:00 Test Item Value Reference Range Interpretation Comments POC glucose (test 89 mg/dL 65-99 Patient Access N desire: Rubin code = 78009-2) Angelina Ingram: [id number] able: RN Notified [facility]2022-10-19 13:03:01 Test Item Value Reference Range Interpretation Comments POC sodium (test code = 140 mmol/L 863-274 7731-0) POC potassium (test code 3.9 mmol/L 3.5-5.0 = 6298-4) POC glucose (test code = 78 mg/dL 65-99 2339-0) POC creatinine (test 4.6 mg/dl 0.5-0.9 H Operato r Name: code = 80426-0) Marko kyle ID: [id number] POC hemoglobin (test 8.5 g/dL 12.0-16.0 L code = 718-7) POC hematocrit (test 25 % 37-47 L code = 4544-3) Lab Interpretation (test Abnormal code = 35119-5) [facility]2022-10-19 13:03:01 Test Item Value Reference Range Interpretation Comments POC sodium (test code = 140 mmol/L 651-851 6729-0) POC potassium (test code 3.9 mmol/L 3.5-5.0 = 6298-4) POC glucose (test code = 78 mg/dL 65-99 2339-0) POC creatinine (test 4.6 mg/dl 0.5-0.9 H Operato r Name: code = 28278-4) Marko kyle ID: [id number] POC hemoglobin (test 8.5 g/dL 12.0-16.0 L code = 718-7) POC hematocrit (test 25 % 37-47 L code = 4544-3) Lab Interpretation (test Abnormal code = 51987-8) [facility]2022-10-19 13:03:01 Test Item Value Reference Range Interpretation Comments POC sodium (test code = 140 mmol/L 380-199 5543-0) POC potassium (test code 3.9 mmol/L 3.5-5.0 = 6298-4) POC glucose (test code = 78 mg/dL 65-99 2339-0) POC creatinine (test 4.6 mg/dl 0.5-0.9 H Operato r Name: code = 61872-5) Marko kyle ID: [id number] POC hemoglobin (test 8.5 g/dL 12.0-16.0 L code = 718-7) POC hematocrit (test 25 % 37-47 L code = 4544-3) Lab Interpretation (test Abnormal code = 88690-1) [facility] [id number] 13:03:01 Test Item Value Reference Range Interpretation Comments POC sodium (test code = 140 mmol/L 914-463 2157-0) POC potassium (test code 3.9 mmol/L 3.5-5.0 = 6298-4) POC glucose (test code = 78 mg/dL 65-99 2339-0) POC creatinine (test 4.6 mg/dl 0.5-0.9 H Operato r Name: code = 48109-6) Marko kyle ID: [id number] POC hemoglobin (test 8.5 g/dL 12.0-16.0 L code = 718-7) POC hematocrit (test 25 % 37-47 L code = 4544-3) Lab Interpretation (test Abnormal code = 47880-7) [facility]2022-10-19 13:03:01 Test Item Value Reference Range Interpretation Comments POC sodium (test code = 140 mmol/L 820-168 6222-0) POC potassium (test code 3.9 mmol/L 3.5-5.0 = 6298-4) POC glucose (test code = 78 mg/dL 65-99 2339-0) POC creatinine (test 4.6 mg/dl 0.5-0.9 H Operato r Name: code = 92217-8) Marko kyle ID: [id number] POC hemoglobin (test 8.5 g/dL 12.0-16.0 L code = 718-7) POC hematocrit (test 25 % 37-47 L code = 4544-3) Lab Interpretation (test Abnormal code = 55327-9) [facility] [id number] 13:03:00 Test Item Value Reference Range Interpretation Comments Estimated GFR (test mL/min/1.73 m2 A Caterg ory Units code = 79235-8) Interpretati onG1 >=90 Normal or highG 2 60-89 Mildly decrease dG3a 45-59 Mildly to moderately decr fydlcR8f 30-44 Moderatel y to severely decrea sedG4 15-29 Severely decreasedG5 <15 Kidney failureThe eGFR was calculated usin g the Chronic Kidney Disease Epidemiology Collaboration ( CKD-EPI) equation. Interpretation is based on recommendati ons of the [facility] Disease Outcome s Quality Initiat hermes ([facility]) pub lished in 2013. Lab Interpretation Abnormal (test code = 80297-8) [facility] [id number] 13:03:00 Test Item Value Reference Range Interpretation Comments Estimated GFR (test 9 mL/min/1.73 m2 A Caterg ory Units code = 86411-8) Interpretati onG1 >=90 Normal or highG 2 60-89 Mildly decrease dG3a 45-59 Mildly to moderately decr cgemzY6i 30-44 Moderatel y to severely decrea sedG4 15-29 Severely decreasedG5 <15 Kidney failureThe eGFR was calculated usin g the Chronic Kidney Disease Epidemiology Collaboration ( CKD-EPI) equation. Interpretation is based on recommendati ons of the [facility] Disease Outcome s Quality Initiat hermes ([facility]) pub lished in 2013. Lab Interpretation Abnormal (test code = 05933-3) [facility] [id number] 13:03:00 Test Item Value Reference Range Interpretation Comments Estimated GFR (test 9 mL/min/1.73 m2 A Caterg ory Units code = 02791-2) Interpretati onG1 >=90 Normal or highG 2 60-89 Mildly decrease dG3a 45-59 Mildly to moderately decr zuiszA8u 30-44 Moderatel y to severely decrea sedG4 15-29 Severely decreasedG5 <15 Kidney failureThe eGFR was calculated usin g the Chronic Kidney Disease Epidemiology Collaboration ( CKD-EPI) equation. Interpretation is based on recommendati ons of the [facility] Disease Outcome s Quality Initiat hermes ([facility]) pub lished in 2013. Lab Interpretation Abnormal (test code = 91760-3) [facility] [id number] 13:03:00 Test Item Value Reference Range Interpretation Comments Estimated GFR (test 9 mL/min/1.73 m2 A Caterg ory Units code = 24647-5) Interpretati onG1 >=90 Normal or highG 2 60-89 Mildly decrease dG3a 45-59 Mildly to moderately decr occfwG1v 30-44 Moderatel y to severely decrea sedG4 15-29 Severely decreasedG5 <15 Kidney failureThe eGFR was calculated usin g the Chronic Kidney Disease Epidemiology Collaboration ( CKD-EPI) equation. Interpretation is based on recommendati ons of the [facility] Disease Outcome s Quality Initiat hermes ([facility]-KDOQI) pub lished in 2013. Lab Interpretation Abnormal (test code = 82995-4) [facility] [id number] 13:03:00 Test Item Value Reference Range Interpretation Comments Estimated GFR (test 9 mL/min/1.73 m2 A Caterg ory Units code = 09830-6) Interpretati onG1 >=90 Normal or highG 2 60-89 Mildly decrease dG3a 45-59 Mildly to moderately decr lblrvS3o 30-44 Moderatel y to severely decrea sedG4 15-29 Severely decreasedG5 <15 Kidney failureThe eGFR was calculated usin g the Chronic Kidney Disease Epidemiology Collaboration ( CKD-EPI) equation. Interpretation is based on recommendati ons of the [facility] Disease Outcome s Quality Initiat hermes ([facility]-KDOQI) pub lished in 2013. Lab Interpretation Abnormal (test code = 92615-5) [facility] [id number] 19:03:18 Test Item Value Reference Range Interpretation Comments Case number (test code = [id number]) Surgical pathology See link below for report (test code = PDF Lab Report 2255) Result status (test code This is Final Report = [id number]) for [id number] [facility] [id number] 19:03:18 Test Item Value Reference Range Interpretation Comments Case number (test code = [id number]) Surgical pathology See link below for report (test code = PDF Lab Report 2255) Result status (test code This is Final Report = [id number]) for [id number] [facility] [id number] 19:03:18 Test Item Value Reference Range Interpretation Comments Case number (test code = [id number]) Surgical pathology See link below for report (test code = PDF Lab Report 2255) Result status (test code This is Final Report = [id number]) for [id number] [facility] pathology [id number] 19:03:18 Test Item Value Reference Range Interpretation Comments Case number (test code = [id number]) Surgical pathology See link below for report (test code = PDF Lab Report 2255) Result status (test code This is Final Report = [id number]) for [id number] [facility] pathology [id number] 19:03:18 Test Item Value Reference Range Interpretation Comments Case number (test code = [id number]) Surgical pathology See link below for report (test code = PDF Lab Report 2255) Result status (test code This is Final Report = [id number]) for [id number] [facility] Pre/Post [id number] 10:49:53 Test Item Value Reference Range Interpretation Comments Ventricular rate (test code = 253) Atrial rate (test code = 255) [place] interval (test code = 266) QRSD interval [...] wave inversion now evident in Inferior leads- [facility] Pre/Post [id number] 10:49:53 Test Item Value Reference Range Interpretation Comments Ventricular rate (test 101 code = 253) Atrial rate (test code 101 = 255) [place] interval (test code 160 = 266) QRSD [...] wave inversion now evident in Inferior leads- [facility] Pre/Post [id number] 10:49:53 Test Item Value Reference Range Interpretation Comments Ventricular rate (test 101 code = 253) Atrial rate (test code 101 = 255) [place] interval (test code 160 = 266) QRSD [...] wave inversion now evident in Inferior leads- [facility] Pre/Post [id number] 10:49:53 Test Item Value Reference Range Interpretation Comments Ventricular rate (test 101 code = 253) Atrial rate (test code 101 = 255) [place] interval (test code 160 = 266) QRSD [...] wave inversion now evident in Inferior leads- [facility] Pre/Post [id number] 10:49:53 Test Item Value Reference Range Interpretation Comments Ventricular rate (test 101 code = 253) Atrial rate (test code 101 = 255) [place] interval (test code 160 = 266) QRSD [...] wave inversion now evident in Inferior leads- [facility] GLUCOSE (AUTOMATED)2020-10-14 12:45:50 Test Item Value Reference Range Interpretation Comments POCT GLU (test code = 9459891775) 255 mg/dL 70-110 H Lab Interpretation (test code = Abnormal 81512-0) [facility] [id number] 12:35:00 Test Item Value Reference Range Interpretation Comments POCT Glu (age>30days) (test code = 255 mg/dL 70-110 A 3342) Lab Interpretation (test code = Abnormal 53356-2) [facility]-CoV-2 (COVID-19) RNA [Presence] in Respiratory specimen by JUANY with probe [id number] 01:15:19 Test Item Value Reference Range Interpretation Comments SARS-CoV-2 (COVID-19) RNA Not detected Not-Detected [Presence] in Respiratory specimen by JUANY with probe detection (test code = 37994-7) [facility] [id number] 12:03:00 Test Item Value Reference Range Interpretation Comments POCT Glu (age>30days) (test code = 142 mg/dL 70-110 A 3342) Lab Interpretation (test code = Abnormal 07767-0) [facility]-CoV-2 (COVID-19) RNA [Presence] in Respiratory specimen by JUANY with probe [id number] 18:03:16 Test Item Value Reference Range Interpretation Comments SARS-CoV-2 (COVID-19) RNA Not detected Not-Detected [Presence] in Respiratory specimen by JUANY with probe detection (test code = 75502-5) [facility]
[2022-09-28 09:10] LABS: Absolute Lymphocytes (CBC) 0.7 K/uL (0.7-4.9); Hematocrit 26.4 % (36.0-45.0); Lymphocytes % 9.2 % (15.3-44.8); MCV 86.9 fL (80-100); MPV 6.3 fL (7.6-11.3); RBC Red Blood Cell Count 3.03 M/uL (3.86-4.86)
[2022-09-28 09:14] LABS: Protime INR 1.09
[2022-09-28] MEDS ORDERED: FENTANYL CITR 100 MCG/2 ML ONE (09:31)
--- NOTE | 2022-09-28 09:31 | RAD REPORT ---
EXAM DESCRIPTION: CT - Head C Spine Cap Wo Con - 09/28/2022 8:44 am CLINICAL HISTORY: TRAUMA Unwitnessed fall. On blood thinners. COMPARISON: No comparisons TECHNIQUE: Head and cervical spine CT images were obtained without IV contrast. Chest, abdomen, and pelvis CT images were obtained also without IV contrast. Multiplanar reformats were generated and rev iewed. All CT scans are performed using dose optimization technique as appropriate and may include automated exposure control or mA/KV adjustment according to patient size. FINDINGS: CT HEAD: No intracranial hemorrhage, mass effect, or edema. No evidence of acute territorial infarct. No midli ne shift or abnormal fluid collection. The ventricles are normal in caliber and configuration for age . Basal cisterns are patent. Mastoid aircells and paranasal sinuses are clear. No acute skull fractur e. High-riding right jugular bulb. CT CERVICAL SPINE: No acute cervical spine fracture or subluxation. Vertebral body heights are well maintained. Facet mesha ints are normal in alignment. No hyperattenuating canal hematoma. Prevertebral and paraspinous soft t issues are unremarkable. CT CHEST: Slightly bulky left thyroid lobe without discrete nodules. Status post left anicteric activity. Left IJ dialysis catheter in place. No pneumothorax, pulmonary contusion or pleural fluid collection. No m ediastinal hematoma and the aorta and pulmonary arteries are unremarkable. No chest will mass or abno rmal axillary finding. No displaced rib fracture or other significant bony finding. CT ABDOMEN/ PELVIS: No evidence of traumatic injury to solid abdominal viscera. Gallbladder and biliary tree are unremark able. No bowel injury or significant finding. No free air, free fluid or abnormal fat stranding. No u rinary bladder abnormality. Status post cholecystectomy. Incidental findings including calcifications along the aorta and major vessels. Medial calcifications along the medium-sized arteries. Small fat containing umbilical hernia. Colonic diverticulosis. No significant bony finding. Sequelae of prior anterior fusion C4-C6, and transpedicular fusion at L 4-5 with bone graft. IMPRESSION: No acute traumatic findings of the brain, cervical spine, chest, abdomen, or pelvis. Incidental findings as above.
[2022-09-28 09:34] LABS: ALT/SGPT < 10 U/L (13-56); AST/SGOT 19 U/L (15-37); Albumin 2.6 g/dL (3.4-5.0); Alkaline Phosphatase 144 U/L (45-117); BUN Blood Urea Nitrogen 14 mg/dL (7-18); Bicarbonate 27 mEq/L (21-32); Bilirubin Direct 0.2 mg/dL (0-0.2); Bilirubin Total 0.5 mg/dL (0.2-1.0); Glomerular Filtration Rate 19 ml/min (=/>90); Glucose Level 73 mg/dL (74-106); Lipase 19 U/L (13-75); Potassium 2.8 mEq/L (3.5-5.1); Sodium Level 137 mEq/L (136-145)
--- NOTE | 2022-09-28 09:43 | ER ---
Nurse's Notes [facility] Name: Meseret Gallego Age: 67 yrs Sex: Female : 1955 Arrival Date: 09/28/2022 Time: 08:17 Bed 18 Private MD: Diagnosis: Fall on same level from slipping, tripping and stumbling without subsequent striking against object;Unspecified injury of head, initial encounter;Concussion with loss of consciousness of 30 minutes or less;Hypokalemia;Manic episode without psychotic symptoms, mild Presentation: 09/28 08:18 Chief complaint: EMS states: patient had an unwitnessed fall at the senior care this kc6 morning. pt reports positive LOC and being on Plavix. BGL en route 68. Care prior to arrival: None. Mechanism of Injury: Fall out of bed approximately 2 feet. Trauma event details: Injury occurred in the [facility]. 08:18 Acuity: CHRISTOPHER 3 kc6 08:18 Method Of Arrival: EMS: [facility] 08:22 Coronavirus screen: Vaccine status: Patient reports receiving the 2nd dose of the covid kc6 vaccine. At this time, the client does not indicate any symptoms associated with coronavirus-19. Ebola Screen: No symptoms or risks identified at this time. Initial Sepsis Screen: Does the patient meet any 2 criteria? No. Patient's initial sepsis screen is negative. Does the patient have a suspected source of infection? No. Patient's initial sepsis screen is negative. Risk Assessment: Do you want to hurt yourself or someone else? Patient reports no desire to harm self or others. Onset of symptoms was September 28, 2022. Trauma Activation: Alert Physician: ED Physician; Name: ; Notified At: ; Arrived At: Physician: General Surgeon; Name: ; Notified At: ; Arrived At: Physician: Radiology; Name: ; Notified At: ; Arrived At: Physician: Respiratory; Name: ; Notified At: ; Arrived At: Physician: Lab; Name: ; Notified At: ; Arrived At: Historical: - Allergies: 08:21 Codeine; kc6 08:21 Phenergan; kc6 08:21 Tape; kc6 - PMHx: 08:21 Diabetes - IDDM; Dialysis; Hypercholesterolemia; Hypertension; Hypothyroidism; kc6 Myocardial infarction; - PSHx: 08:21 2 heart stents; back; section; knee; neck; kc6 - Immunization history: Last tetanus immunization: unknown. - Social history:: Smoking status: Patient denies any tobacco usage or history of. Screenin:18 Abuse screen: Denies threats or abuse. Denies injuries from another. Tuberculosis kc6 screening: No symptoms or risk factors identified. 08:21 [facility] ED Fall Risk Assessment (Adult) History of falling in the last 3 months, kc6 including since admission Yes- physiologic fall (2 pts) Confusion or Disorientation Yes (5 pts) Intoxicated or Sedated No (0 pts) Impaired Gait No (0 pts) Mobility Assist Device Used No (0 pt) Altered Elimination No (0 pt) Score/Fall Risk Level 3 or more points = High Risk Oriented to surroundings, Maintained a safe environment, Educated pt \T\ family on fall prevention, incl call for assistance when getting out of bed, Assessed \T\ reinforced patient's understanding of fall precautions, Hourly rounding (assess needs \T\ fall precautionary measures) done. Nutritional screening: No deficits noted. Primary Survey: 08:18 NO uncontrolled hemorrhage observed. A: The client is awake and alert. The airway is kc6 patent. Breathing/Chest: Spontaneous respiratory effort, equal unlabored respirations, breath sounds clear bilaterally, regular pattern, symmetrical chest rise and fall. Circulation: No external hemorrhage present. Regular and strong central pulse, skin warm/dry/normal color. Disability Pupils are equal, round, reactive to light and accommodation. Exposure/Environment: There is no evidence of uncontrolled external bleeding. No obvious injuries are noted at this time. A warming method has been applied: A warm blanket has been provided to the patient. 08:22 Reassessment Breathing:. kc6 Secondary Survey: 08:18 HEENT: No deficits noted. Gastrointestinal: No deficits noted. : No signs and/or kc6 symptoms were reported regarding the genitourinary system. Musculoskeletal: No signs and/or symptoms reported regarding the musculoskeletal system. Assessment: 08:18 General: Appears in no apparent distress. comfortable, Behavior is calm, cooperative, kc6 appropriate for age. Pain: Complains of pain in right hip, YEIMI knees, and neck. 08:18 Neuro: [place] Agitation-Sedation Scale (RASS): 0 - Alert and Calm Level of kc6 Consciousness is awake, alert, obeys commands, Oriented to person, place, time, situation, Appropriate for age. Cardiovascular: Capillary refill < 3 seconds. Respiratory: Airway is patent Trachea midline Respiratory effort is even, unlabored, Respiratory pattern is regular, symmetrical, Breath sounds are clear bilaterally. GI: No signs and/or symptoms were reported involving the gastrointestinal system. : No signs and/or symptoms were reported regarding the genitourinary system. EENT: No signs and/or symptoms were reported regarding the EENT system. Derm: No signs and/or symptoms reported regarding the dermatologic system. Skin is intact, Skin is pink, warm \T\ dry. MRSA to the right bottom foot. Musculoskeletal: No signs and/or symptoms reported regarding the musculoskeletal system. Circulation, motion, and sensation intact. Capillary refill < 3 seconds, Range of motion: intact in all extremities. 09:18 Reassessment: Patient appears in no apparent distress at this time. No changes from [facility] previously documented assessment. Patient and/or family updated on plan of care and expected duration. Pain level reassessed. Patient is alert, oriented x 3, equal unlabored respirations, skin warm/dry/pink. 09:42 Reassessment: discharge pending transport back to [facility]. kc6 10:18 Reassessment: Patient appears in no apparent distress at this time. No changes from kc6 previously documented assessment. Patient and/or family updated on plan of care and expected duration. Pain level reassessed. Patient is alert, oriented x 3, equal unlabored respirations, skin warm/dry/pink. 11:05 Reassessment: attempted to call report to [facility]. on hold for 5min with [facility] no answer. 11:21 Reassessment: attempted to call report to [facility]. was transferred to her [facility] nurse with no answer. 11:29 Reassessment: Attempting to call [facility] again at this time, phone call ss transferred to [facility]. No answer. not set up. 11:36 Reassessment: spoke with PERRI Tinoco from [facility]. stated she will work kc on transport back to the facility. ETA 12pm. 12:57 Reassessment: spoke with PERRI Tinoco from [place]. stated transportation is on their kc way. Vital Signs: 08:18 BP 98 / 83; Pulse 109; Resp 18 S; Temp 98(O); Pulse Ox 100% on R/A; Weight 84.82 kg kc6 (R); Height 5 ft. 6 in. (R); Pain 9/10; 09:19 BP 109 / 77; Pulse 106; Resp 17 S; Pulse Ox 100% on R/A; kc6 11:06 BP 93 / 56; Pulse 103; Resp 14 S; Pulse Ox 100% on R/A; kc6 08:18 Body Mass Index 30.18 (84.82 kg, 167.64 cm) kc6 08:18 Pain Scale: Adult kc6 [place] Coma Score: 08:18 Eye Response: spontaneous(4). Motor Response: obeys commands(6). Verbal Response: kc6 oriented(5). Total: 15. Trauma Score (Adult): 08:18 Eye Response: spontaneous(1); Verbal Response: oriented(1); Motor Response: obeys kc6 commands(2); Systolic BP: > 89 mm Hg(4); Respiratory Rate: 10 to 29 per min(4); [place] Score: 15; Trauma Score: 12 ED Course: 08:17 Patient arrived in ED. am2 08:18 Shauna Cavanaugh, RN is Primary Nurse. kc6 08:18 Patient has correct armband on for positive identification. Placed in gown. Bed in low kc6 position. Call light in reach. Side rails up X2. 08:18 Patient maintains SpO2 saturation greater than 95% on room air. kc6 08:19 Triage completed. kc6 08:21 Arm band placed on. kc6 08:22 [facility] sn[facility] 08:22 Chris Gu MD is Attending Physician. snw 08:22 Thermoregulation: warm blanket given to patient. kc6 08:57 Inserted saline lock: 20 gauge in right forearm, using aseptic technique. Blood kc6 collected. 09:27 CT Traumagram (Head C Spine CAP wo con) In Process Unspecified. EDMS 12:25 No provider procedures requiring assistance completed. IV discontinued, intact, kc6 bleeding controlled, No redness/swelling at site. Pressure dressing applied. Administered Medications: 09:53 Drug: fentaNYL (PF) IVP 25 mcg Route: IVP; Site: right forearm; kc6 11:07 Follow up: Response: No adverse reaction; Pain is decreased; RASS: Alert and Calm (0) kc6 09:53 Drug: Potassium PO Effervescent Tablet 50 mEq Route: PO; kc6 11:07 Follow up: Response: No adverse reaction kc6 09:53 Drug: Potassium Chloride PO 20 mEq Route: PO; kc6 11:07 Follow up: Response: No adverse reaction kc6 09:54 Drug: midodrine 5 mg Route: PO; kc6 11:07 Follow up: Response: No adverse reaction kc6 Medication: 12:25 VIS not applicable for this client. kc6 Intake: 12:25 PO: 240ml (Water); Total: 240ml. kc6 Outcome: 09:42 Discharge ordered by . eliceo 12:25 Patient's length of stay was not longer than 2 hours. kc6 13:16 Patient left the ED. jl7 Signatures: Dispatcher [employer] EDMS Robyn Silva FNP-C PRINT AND PATTERN DESIGNER-CsnVioleta Espinosa RN RN ss Gale Thapa RN RN jl7 Kiki Ruiz Kaitlyn, RN RN kc6
--- NOTE | 2022-09-28 09:43 | EDPHYS ---
Physician Documentation [facility] Name: Meseret Gallego Age: 67 yrs Sex: Female : 1955 Arrival Date: 09/28/2022 Time: 08:17 Bed 18 Private MD: ED Physician Chris Gu HPI: 09/28 09:36 This 67 yrs old Female presents to ER via EMS with complaints of Fall Injury. snw 09:36 Details of fall: The patient fell from an upright position. Onset: The symptoms/episode snw began/occurred suddenly, just prior to arrival. Associated injuries: The patient sustained injury to the head. Severity of symptoms: At their worst the symptoms were moderate. It is unknown whether or not the patient has had similar symptoms in the past. The patient has been recently seen by a physician: with different complaint(s), and apparently was diagnosed with MRSA, multiple skin lesions. Historical: - Allergies: 08:21 Codeine; kc6 08:21 Phenergan; kc6 08:21 Tape; kc6 - PMHx: 08:21 Diabetes - IDDM; Dialysis; Hypercholesterolemia; Hypertension; Hypothyroidism; kc6 Myocardial infarction; - PSHx: 08:21 2 heart stents; back; section; knee; neck; kc6 - Immunization history: Last tetanus immunization: unknown. - Social history:: Smoking status: Patient denies any tobacco usage or history of. ROS: 09:21 Eyes: Negative for injury, pain, redness, and discharge, ENT: Negative for injury, snw pain, and discharge, Neck: Negative for injury, pain, and swelling, Cardiovascular: Negative for chest pain, palpitations, and edema, Respiratory: Negative for shortness of breath, cough, wheezing, and pleuritic chest pain, Abdomen/GI: Negative for abdominal pain, nausea, vomiting, diarrhea, and constipation, Back: Negative for injury and pain, : Negative for injury, bleeding, discharge, and swelling. 09:21 Neuro: Negative for headache, weakness, numbness, tingling, and seizure. 09:21 Constitutional: Positive for body aches. 09:21 MS/extremity: Positive for injury or acute deformity, of the bilateral knees, left foot. 09:21 Skin: Positive for abrasion(s), cellulitis, erythema. Exam: 09:16 Head/Face: Normocephalic, atraumatic. Eyes: Pupils equal round and reactive to light, snw extra-ocular motions intact. Lids and lashes normal. Conjunctiva and sclera are non-icteric and not injected. Cornea within normal limits. Periorbital areas with no swelling, redness, or edema. ENT: Nares patent. No nasal discharge, no septal abnormalities noted. Tympanic membranes are normal and external auditory canals are clear. Oropharynx with no redness, swelling, or masses, exudates, or evidence of obstruction, uvula midline. Mucous membranes moist. Neck: Trachea midline, no thyromegaly or masses palpated, and no cervical lymphadenopathy. Supple, full range of motion without nuchal rigidity, or vertebral point tenderness. No Meningismus. 09:16 Cardiovascular: Regular rate and rhythm with a normal S1 and S2. No gallops, murmurs, or rubs. Normal PMI, no JVD. No pulse deficits. Respiratory: Lungs have equal breath sounds bilaterally, clear to auscultation and percussion. No rales, rhonchi or wheezes noted. No increased work of breathing, no retractions or nasal flaring. Abdomen/GI: Soft, non-tender, with normal bowel sounds. No distension or tympany. No guarding or rebound. No evidence of tenderness throughout. Back: No spinal tenderness. No costovertebral tenderness. Full range of motion. MS/ Extremity: Pulses equal, no cyanosis. Neurovascular intact. Full, normal range of motion. Neuro: Awake and alert, GCS 15, oriented to person, place, time, and situation. Cranial nerves II-XII grossly intact. Motor strength 5/5 in all extremities. Sensory grossly intact. Cerebellar exam normal. Normal gait. 09:16 Constitutional: The patient appears alert, obese, psychotic, paranoid, talking about the [employer] kidnapping and questioning her. NH states she fell. 09:16 Chest/axilla: Inspection: dialysis catheter to left chest wall. 09:16 Skin: Appearance: normal except for affected area, lesion(s), noted, and can be described as bleeding, erythematous, ulcerated, skin picking. 09:16 Psych: Behavior/mood is pleasant, Affect is animated, Oriented to person, time, Judgement / Insight is impaired. Delusions/hallucinations paranoia, conspiratorial, psychotic. Vital Signs: 08:18 BP 98 / 83; Pulse 109; Resp 18 S; Temp 98(O); Pulse Ox 100% on R/A; Weight 84.82 kg kc6 (R); Height 5 ft. 6 in. (R); Pain 9/10; 09:19 BP 109 / 77; Pulse 106; Resp 17 S; Pulse Ox 100% on R/A; kc6 11:06 BP 93 / 56; Pulse 103; Resp 14 S; Pulse Ox 100% on R/A; kc6 08:18 Body Mass Index 30.18 (84.82 kg, 167.64 cm) kc6 08:18 Pain Scale: Adult kc6 [place] Coma Score: 08:18 Eye Response: spontaneous(4). Motor Response: obeys commands(6). Verbal Response: kc6 oriented(5). Total: 15. Trauma Score (Adult): 08:18 Eye Response: spontaneous(1); Verbal Response: oriented(1); Motor Response: obeys kc6 commands(2); Systolic BP: > 89 mm Hg(4); Respiratory Rate: 10 to 29 per min(4); Stephany Score: 15; Trauma Score: 12 MDM: 08:22 Patient medically screened. snw 09:22 Differential diagnosis: closed head injury, fracture, multiple trauma. Data reviewed: snw vital signs, nurses notes, EMS record. Historians other than the Patient: EMS: [place]. Care significantly affected by the following chronic conditions: Diabetes, Hypertension, Obesity, Chronic Kidney Disease. Care significantly affected by the following Social Determinants of Health: recent admission to [facility] for MRSA infection.. ED course: Pt arrives clearly psychotic with antagonistic paranoia. Pt apparently had a fall in the [place] today. history of loss of consciousness, unclear by history if the fall was witnessed and difficult to get a history of events from patient. 09:40 Counseling: I had a detailed discussion with the patient and/or guardian regarding: the snw historical points, exam findings, and any diagnostic results supporting the discharge/admit diagnosis, lab results, radiology results, the need for outpatient follow up, for definitive care. Special discussion: Based on the patient's history, exam and DX evaluation, there is no indication for emergent intervention or inpatient TX. It is understood by the patient/guardian that if the SXs persist or worsen they need to return immediately for re-evaluation. 09/28 08:24 Order name: Blood Culture Adult (2) snw 09/28 08:24 Order name: CBC with Diff snw 09/28 08:24 Order name: CMP; Complete Time: 09:37 snw 09/28 08:24 Order name: Lactate w/ 2H reflex if indic. snw 09/28 08:24 Order name: Protime (+inr) snw 09/28 08:24 Order name: Ptt, Activated snw 09/28 08:24 Order name: Basic Metabolic Panel snw 09/28 08:24 Order name: ETOH Level; Complete Time: 09:37 snw 09/28 08:24 Order name: Hepatic Function; Complete Time: 09:37 snw 09/28 08:24 Order name: Lipase; Complete Time: 09:37 snw 09/28 08:24 Order name: Type And Screen w 09/28 08:53 Order name: Glucose, Ancillary Testing; Complete Time: 08:55 EDMS 09/28 09:15 Order name: Protime (+INR); Complete Time: 09:16 EDMS 09/28 09:15 Order name: PTT, Activated Partial Thromb; Complete Time: 09:16 EDMS 09/28 09:25 Order name: Lactate w/ 2H reflex if indic. EDMS 09/28 08:24 Order name: CT Traumagram (Head C Spine CAP wo con); Complete Time: 09:37 snw 09/28 08:24 Order name: EKG; Complete Time: 08:31 snw 09/28 08:24 Order name: Accucheck; Complete Time: 08:57 snw 09/28 08:24 Order name: Cardiac monitoring; Complete Time: 08:24 snw 09/28 08:24 Order name: EKG - Nurse/Tech; Complete Time: 08:37 snw 09/28 08:24 Order name: IV Saline Lock - Large Bore; Complete Time: 08:57 snw 09/28 08:24 Order name: Labs collected and sent; Complete Time: 08:57 snw 09/28 08:24 Order name: O2 Per Protocol; Complete Time: 08:24 snw 09/28 08:24 Order name: O2 Sat Monitoring; Complete Time: 08:24 snw 09/28 08:24 Order name: Vital Signs; Complete Time: 08:24 snw 09/28 08:24 Order name: IV Saline Lock; Complete Time: 08:57 snw 09/28 08:24 Order name: NPO; Complete Time: 08:24 snw 09/28 09:39 Order name: PO challenge; Complete Time: 09:53 snw EC:30 Rate is 106 beats/min. Rhythm is regular. QRS Melba is Normal. ME interval is normal. snw QRS interval is prolonged. ST Segment is depressed in leads V2, V3, V4, V5. Clinical impression: NSR w/ Non-specific ST/T Changes. Administered Medications: :53 Drug: fentaNYL (PF) IVP 25 mcg Route: IVP; Site: right forearm; 6 11:07 Follow up: Response: No adverse reaction; Pain is decreased; RASS: Alert and Calm (0) 6 09:53 Drug: Potassium PO Effervescent Tablet 50 mEq Route: PO; kc6 11:07 Follow up: Response: No adverse reaction kc6 09:53 Drug: Potassium Chloride PO 20 mEq Route: PO; kc6 11:07 Follow up: Response: No adverse reaction kc6 09:54 Drug: midodrine 5 mg Route: PO; kc6 11:07 Follow up: Response: No adverse reaction 6 Disposition: 14:33 I reviewed the patient's care provided by the Advanced Practice Provider and agree with jr11 the diagnosis and treatment plan. Disposition Summary: 09/28/22 09:42 Discharge Ordered Location: Home snw Condition: Stable snw Diagnosis - Fall on same level from slipping, tripping and stumbling without subsequent snw striking against object - Unspecified injury of head, initial encounter snw - Concussion with loss of consciousness of 30 minutes or less snw - Hypokalemia snw - Manic episode without psychotic symptoms, mild snw Followup: snw - With: Private Physician - When: Tomorrow - Reason: Recheck today's complaints, Continuance of care, Re-evaluation by your physician Followup: snw - With: Emergency Department - When: As needed - Reason: Worsening of condition Discharge Instructions: - Discharge Summary Sheet snw - Potassium Content of Foods snw - Head Injury, Adult snw - Hypokalemia snw - Britt snw Forms: - Medication Reconciliation Form snw - Thank You Letter snw - Antibiotic Education snw - Prescription Opioid Use snw Signatures: Dispatcher [employer] EDMS Robyn Silva, TOP CUTTER-C TOP CUTTER-Csnw Chris Gu MD MD [email or web address] Shauna Cavanaugh RN RN kc6
[2022-09-28] MEDS ORDERED: MIDODRINE HCL 5 MG TABLET PO ONE (09:45)
[2022-09-28] MEDS ORDERED: POTASSIUM CL SA 10 MEQ TAB PO ONE (09:49)
[2022-09-28] MEDS ORDERED: POTASSIUM 25 MEQ EFFERV TAB ONE (09:49)
--- NOTE | 2022-09-28 15:48 | EKG ---
Test Date: 2022-09-28 Test Time: 08:34:34 Packaging Clerk: SAL MEASUREMENT RESULTS: Intervals: Rate: 106 HI: 148 QRSD: 164 QT: 386 QTc: 512 [place]: P: 12 HI: 148 QRS: 66 T: 1 INTERPRETIVE STATEMENTS: Sinus tachycardia with fusion complexes Right bundle branch block Inferior infarct, age undetermined Compared to ECG 09/18/2022 22:39:32 Fusion complex(es) now present Right bundle-branch block now present Myocardial infarct finding now present Sinus rhythm no longer present Electronically Signed On 09-28-22 15:47:45 CDT by Imer Lantigua
[2022-09-28 16:04] VITALS: TEMP 98; O2SAT 100
[2022-09-28 16:06] VITALS: BP 93/56
== END 2022-09-28 13:16 | disposition home or self-care (01) ==
LOC: ER 08:08
DX: S06.0X1A Concussion with loss of consciousness of 30 minutes or less, initial encounter (principal); W01.10XA Fall on same level from slipping, tripping and stumbling with subsequent striking against unspecified object, initial encounter; Y93.9 Activity, unspecified; Y92.129 Unspecified place in nursing home as the place of occurrence of the external cause; F23 Brief psychotic disorder; F30.2 Manic episode, severe with psychotic symptoms; E11.9 Type 2 diabetes mellitus without complications; E11.8 Type 2 diabetes mellitus with unspecified complications; Z79.4 Long term (current) use of insulin; E78.00 Pure hypercholesterolemia, unspecified; I10 Essential (primary) hypertension; E03.9 Hypothyroidism, unspecified; I25.2 Old myocardial infarction; Z99.2 Dependence on renal dialysis; E87.6 Hypokalemia; Z88.6 Allergy status to analgesic agent
CPT/HCPCS: 93005; 87040 ×2; 85025; 36415; 86900; 86850; 85610; 86901; 82947; 83605; 85730; 82248; 83690; 80053; 70450; 71250; 72125; J3010; G0480

== ENCOUNTER 2022-10-12 19:34 | Inpatient (IN) | payer OTHER ==
--- OUTSIDE RECORDS SUMMARY | 2022-10-12 19:47 | XMS REPORT | Continuity of Care Document ---
:1955 Author Organization [facility] t Address [address] [facility] [address] [place] [id number] Care Team Providers Name Role Phone SABRINA [...] Unavailable Yvan BURROUGHS, Jory Nguyen Attending Clinician [phone] Mao ARIAS, Corrina To Attending Clinician [phone] Doctor Unassigned, [place] Attending Clinician Unavailable Funmi Allen MA Attending [...] Effective Date Expiration Date S tacos TANESHA/FRANKI [id number] 2020 MCARE ADV 00:00:00 CHOICE PPO MEDICARE PART A [id number] 2020 \\T\\ B 00:00:00 [employer] MEDICARE 53 [id number] 2021 Common Sp rachelle 00:00:00 [facility] Problems Condition Condition Condition Status Onset Resolution Last Treating Co mments Source Name Details Category Date Date Treatment Clinician Date CKD CKD Disease Active Overview: Method i (chronic (chronic 5-10 Formattin kidney kidney 00:00: g of this Hospita disease), disease), 00 note l stage V stage V might be different from the original. Added automatic ally from request for surgery [id number] ESRD (end ESRD (end Disease Active 2019-07 Met hodi stage stage 1-05 st renal renal 00:00: Hospita disease) disease) 00 l on on dialysis dialysis [id number] Unsteady Problem Commo n gait [facility] Arrhythmia Arrhythmia Problem C ommon [facility] [id number] Retinopath Problem Com mon y Spirit - [facility] [id number] Seasonal Problem Comm on allergies Spirit - [facility] [id number] PUD Problem Common (peptic Spirit ulcer - CHI disease) [facility] [id number] Body mass Problem Com mon index Spirit [BMI] - CHI 38.0-38.9, [facility] [id number] Diabetic Problem Comm on polyneurop Spirit athy - CHI associated St with type [facility] 2 diabetes Medica l mellitus Center [id number] Morbid Problem Commo n 9104 (severe) Spirit obesity - CHI due to [facility] [id number] Type 2 Problem Common diabetes Spirit mellitus - CHI with diabetic [facility] chronic Medical kidney Center disease Secondary Secondary Problem Com mon hyperparat hyperparat Sp rachelle hyroidism hyroidism, - C HI not St elsewhere [facility] classified Medica l Center Athscl Athscl Problem Common [place] Spirit arteries arteries - CHI of [facility] Ely kes s w s w Medical ulceration ulceration Ce nter Non-pressu Non-pressu Problem C ommon re chronic re chronic Sp rachelle ulcer of ulcer of - CHI other part other part St of right of right [facility] foot with foot with Medi jose unspecifie unspecifie Ce nter d severity d severity Chronic Chronic Problem Common congestive diastolic Spi rit heart CHF - CHI failure (congestiv [facility] heart [facility] failure) Medical [place] [id number] Stented Problem Commo n coronary Spirit artery - CHI [facility] [id number] PAD Problem Common (periphera Spirit l artery - CHI disease) [facility] [id number] Coronary Problem Commo n artery Spirit disease - CHI involving [facility] coronary Medical artery of Center navajo heart, unspecifie d whether angina present [id number] Oxygen Problem Commo n 07 dependent Spirit - [facility] [id number] Anemia in Problem Com mon chronic Spirit illness - CHI [facility] Allergic Non-season Problem Com mon rhinitis al Spirit allergic - CHI rhinitis, unspecifie [facility] d Medical chronicity Center , unspecifie d trigger Dependence Dialysis Problem Com mon on renal patient Spirit dialysis - CHI [facility] Anxiety Anxiety Problem Common about about Spirit health health - [facility] [id number] End stage Problem Comm on renal Spirit disease - [facility] Hypothyroi Hypothyroi Problem C ommon dism dism Spirit - [facility] Cholelithi Gall Problem Commo n asis bladder Spirit without stones - CHI [facility] obstructio [facility] Hypertensi Hypertensi Problem C ommon on on [facility] Type II Uncontroll Problem Comm on diabetes ed type 2 Spiri t mellitus diabetes - CHI [facility] without mellitus St complicati with [facility] Medical therapy Center Mixed Mixed Problem Common hyperlipid hyperlipid Sp rachelle emia emia - [facility] Gastroesop GERD Problem Commo n hageal (gastroeso Spirit reflux phageal - [facility]I [facility] disease reflux St disease) [facility] Vitamin D Vitamin D Problem Com mon deficiency deficiency Sp rachelle [facility] Carpal Carpal Problem Resolve 2021-08-25 Mem [...] U 2000-07 [facility] 08-06 Clear 00:00: [facility] CODEINE DA Active U HALLUCINATIO 2000-07 [facility] N 08-06 Clear 00:00: [facility] No Known DA Active U 2000-07 [facility] Contrast 08-06 Clear Allergie 00:00: Hernandez s [facility] No Known DA Active U 2000-07 [facility] Food 08-06 Clear Allergie 00:00: Hernandez s 00 [facility] No Known DA Active U 2000-07 [facility] Other 08-06 Clear Allergie 00:00: Hernandez s [facility] Opioids Propensi Active Rash Hallucina Meth deonte - ty to 6-17 tions ( st Morphine adverse 00:00: [facility]ospita Analogue reaction 00 craw over l s s to body).Oth drug er reaction( s): Anaphylax ishalluci nations codeine codeine Active Memoria l [place] Phenerga Phenerga Active Memori a n n l [place] Tape Tape Active Memoria l [place] prometha prometha Active Unknown Commo n zine zine [facility] codeine codeine Active Unknown Common [facility] NO KNOWN Drug Active Univers ALLERGIE Class ity of S [facility] Family History Family Member Diagnosis Comments Start Date Stop Date Source Natural father Heart disease [facility] Natural father Hypertension [facility] Natural [facility] Natural mother Diabetes [facility] Natural mother Hyperlipidemia [facility] Natural mother Hypertension [facility] Natural mother Kidney disease [facility] Social History Social Habit Start Date Stop Date Quantity Comments Source Exposure to Not sure University of SARS-CoV-2 (event) [facility] History of Tobacco Common Spirit - Use [facility] Alcohol intake 2022-04-27 2022-04-27 Current drinker Metho dist 00:00:00 00:00:00 of [facility] (finding) Tobacco use and 2022-04-26 2022-04-26 Smokeless Spiritism exposure 00:00:00 00:00:00 tobacco non-user [facility] Cigarettes smoked 2022-04-26 2022-04-[address] current (pack per 00:00:00 00:00:00 Hospita l day) - Reported Cigarette 2022-04-26 2022-04-26 Spiritism pack-years 00:00:00 00:00:00 Hospital Social History 2021-02-23 2021-02-23 [facility] 20:24:04 20:24:04 Alcohol Comment 2020-03-23 2020-03-23 RARELY Spiritism 00:00:00 00:00:00 Hospital Sex [birth year] At [birth year] Spiritism 00:00:00 00:00:00 Hospital Smoking Status Start Date Stop Date Source Unknown if ever smoked [facility] Former Smoker 2022-08-11 00:00:00 2022-08-11 00:00:00 Common S pirit - [facility] Ce nter Never smoked tobacco [facility] Medications Ordered Filled Start Stop Current Ordering [...] :00 needed for l heartburn. traMADoL 2021-07 [id number] 50mg Q8H Take 1 Metho di (Ultram) 50 0-19 10-25 tablet (50 s t mg tablet 00:00: 04:59 mg total) Ho spita 00 :00 by mouth l every 8 (eight) hours as needed for moderate pain for up to 5 days .acute pain. traMADoL 2021-0728 50mg Q8H Take 1 Metho di (Ultram) 50 0-19 10-25 tablet (50 s t mg tablet 00:00: 04:59 mg total) Ho spita 00 :00 by mouth l every 8 (eight) hours as needed for moderate pain for up to 5 days .acute pain. traMADoL 2021-07 [id number] 50mg Q8H Take 1 Metho di (Ultram) 50 0-19 10-25 tablet (50 s t mg tablet 00:00: 04:59 mg total) Ho spita 00 :00 by mouth l every 8 (eight) hours as needed for moderate pain for up to 5 days .acute pain. traMADoL 2021-0728 50mg Q8H Take 1 Metho di (Ultram) 50 0-19 10-25 tablet (50 s t mg tablet 00:00: 04:59 mg total) Ho spita 00 :00 by mouth l every 8 (eight) hours as needed for moderate pain for up to 5 days .acute pain. traMADoL 2021-0728 50mg Q8H Take 1 Metho di (Ultram) 50 0-19 10-25 tablet (50 s t mg tablet 00:00: 04:59 mg total) Ho spita 00 :00 by mouth l every 8 (eight) hours as needed for moderate pain for up to 5 days .acute pain. traMADoL 2021-0728 50mg Q8H Take 1 Metho di (Ultram) 50 0-19 10-25 tablet (50 s t mg tablet 00:00: 04:59 mg total) Ho spita 00 :00 by mouth l every 8 (eight) hours as needed for moderate pain for up to 5 days .acute pain. traMADoL 2021-0728 50mg Q8H Take 1 Metho di (Ultram) 50 0-19 10-25 tablet (50 s t mg tablet 00:00: 04:59 mg total) Ho spita 00 :00 by mouth l every 8 (eight) hours as needed for moderate pain for up to 5 days .acute pain. traMADoL 2021-0728 50mg Q8H Take 1 Metho di (Ultram) [...] solution 00 times a l day. lactulose Yes Q.5D Take by Metho di [...] solution 00 times a l day. ciprofloxac 2021-2021- No TAKE 1 Met hodi [...] TWICE l DAILY UNTIL ALL TAKEN. traMADoL 28 50mg Q8H Take 1 Metho di (Ultram) 50 03-06- tablet (50 s t mg tablet 00:00: 04:59 mg total) Ho spita 00 :00 by mouth l every 8 (eight) hours as needed for moderate pain for up to 5 days .acute pain. traMADoL 28 50mg Q8H Take 1 Metho di (Ultram) 50 03-06 09-04 tablet (50 s t mg tablet 00:00: 04:59 mg total) Ho spita 00 :00 by mouth l every 8 (eight) hours as needed for moderate pain for up to 5 days .acute pain. traMADoL 28 50mg Q8H Take 1 Metho di (Ultram) 50 03-06-04 tablet (50 s t mg tablet 00:00: 04:59 mg total) Ho spita 00 :00 by mouth l every 8 (eight) hours as needed for moderate pain for up to 5 days .acute pain. traMADoL 2021- No [id number] 50mg Q8H Take 1 Metho di (Ultram) 50 03-06-04 tablet (50 s t mg tablet 00:00: 04:59 mg total) Ho spita 00 :00 by mouth l every 8 (eight) hours as needed for moderate pain for up to 5 days .acute pain. traMADoL 2021- No [id number] 50mg Q8H Take 1 Metho di (Ultram) 50 03-06-04 tablet (50 s t mg tablet 00:00: 04:59 mg total) Ho spita 00 :00 by mouth l every 8 (eight) hours as needed for moderate pain for up to 5 days .acute pain. traMADoL 2021- [place] [id number] 50mg Q8H Take 1 Metho di (Ultram) 50 03-06- tablet (50 s t mg tablet 00:00: 04:59 mg total) Ho spita 00 :00 by mouth l every 8 (eight) hours as needed for moderate pain for up to 5 days .acute pain. traMADoL 2021- No [id number] 50mg Q8H Take 1 Metho di (Ultram) 50 03-06-04 tablet (50 s t mg tablet 00:00: 04:59 mg total) Ho spita 00 :00 by mouth l every 8 (eight) hours as needed for moderate pain for up to 5 days .acute pain. traMADoL 2021- No [id number] 50mg Q8H Take 1 Metho di (Ultram) 50 03-06-04 tablet (50 s t mg tablet 00:00: 04:59 mg total) Ho spita 00 :00 by mouth l every 8 (eight) hours as needed for moderate pain for up to 5 days .acute pain. ibuprofen 0 Yes [facility] (ADVIL) 600 8-22 st MG [...] 00:00 Hospita capsule 00 :00 l metOLazone 2022-0 Yes [facility] (ZAROXOLYN) 7-21 st 5 MG tablet 00:00: Hospit a 00 l metOLazone 2022-0 Yes [facility] (ZAROXOLYN) 7-21 st 5 MG [...] 00:00: Hospit a 00 l ciprofloxac 2021-0 2- No 500mg QD Take 500 [facility] in HCl 6-06 06-[address] (CIPRO 15:13: 00:00 mouth Hospita ORAL) 12 :00 daily. For l 2 more days ciprofloxac 2021-0 2022- No 500mg QD Take 500 [facility] in HCl 6-06 06-[address] (CIPRO 15:13: 00:00 mouth Hospita ORAL) 12 :00 daily. For l 2 more days ciprofloxac 2-0 2022- No 500mg QD Take 500 [facility] in HCl 6-06 06-[address] (CIPRO 15:13: 00:00 mouth Hospita ORAL) 12 :00 daily. For l 2 more days ciprofloxac 2-0 2022- No 500mg QD Take 500 [facility] in HCl 6-06 06-[address] (CIPRO 15:13: 00:00 mouth Hospita ORAL) 12 :00 daily. For l 2 more days ciprofloxac 2022-0 2022- No 500mg QD Take 500 [facility] in HCl 6-06 06-[address] (CIPRO 15:13: 00:00 mouth Hospita ORAL) 12 :00 daily. For l 2 more days ciprofloxac 2022-0 2022- No 500mg QD Take 500 [facility] in HCl 6-06 06-[address] (CIPRO 15:13: 00:00 mouth Hospita ORAL) 12 :00 daily. For l 2 more days ciprofloxac 2021-0 2021- No 500mg QD Take 500 [facility] in HCl 6-06 06-[address] (CIPRO 15:13: 00:00 mouth Hospita ORAL) 12 :00 daily. For l 2 more days ciprofloxac 0 2- No 500mg QD Take 500 [facility] in [...] MG tablet 00:00: Hospita 00 l busPIRone 2-0 Yes [facility] (BUSPAR) 5 5-20 st MG tablet 00:00: Hospita 00 l busPIRone 2-0 Yes [facility] (BUSPAR) 5 5-20 st MG tablet 00:00: Hospita 00 l busPIRone 2-0 Yes [facility] (BUSPAR) 5 5-20 st MG tablet 00:00: Hospita 00 l busPIRone 2-0 Yes [facility] (BUSPAR) 5 5-20 st MG tablet 00:00: Hospita 00 l busPIRone 2-0 Yes [facility] (BUSPAR) 5 5-20 st MG tablet 00:00: Hospita 00 l psyllium 2-0 Yes 3.4g Take 3.4 g Met hodi (METAMUCIL) 3-[address] 3.4 gram 00:00: Hospita packet 00 l psyllium 2-0 Yes 3.4g Take 3.4 g Met hodi (METAMUCIL) 3-[address] 3.4 gram 00:00: Hospita packet 00 l psyllium 2-0 Yes 3.4g Take 3.4 g Met hodi [...] 0 Jacob n tablet 00 Refill(s) Adult 2020- Yes 325 mg = 1 Memori a Aspirin 325 8-18 tab, PO, l mg oral 21:06: Daily, 0 Jacob n tablet 00 Refill(s) Adult 2020- Yes 325 mg = 1 Memori a Aspirin 325 8-18 tab, PO, l mg oral 21:06: Daily, 0 Jacob n tablet 00 Refill(s) Adult 2020- Yes 325 mg = 1 Memori a Aspirin 325 8-18 tab, PO, l mg oral 21:06: Daily, 0 Jacob n tablet 00 Refill(s) Adult 2020- Yes 325 mg = 1 [...] Daily, 0 Jacob n tablet 00 Refill(s) Centrum Yes PO, Daily, Jairo frida Silver 8-18 0 l Ultra 20:29: Refill(s) [place] Claritin Yes 10 mg = 1 Jairo frida 8-18 tab, PO, l 20:29: Daily, PRN Lewis 00 Itching / rash / allergy symptoms, # 20 tab, 0 Refill(s) Stool Yes PO, Memoria Softener 8-18 Bedtime, 0 l with 20:29: Refill(s) [place] Laxative aspirin-ome No 1 tab, PO, Memoria prazole 325 8-18 Daily, 0 l mg-40 mg 20:29: Refill(s) Herm joss oral 00 delayed release tablet Centrum Yes PO, Daily, Jairo frida Silver 8-18 0 l Ultra 20:29: Refill(s) [place] Claritin Yes 10 mg = 1 Jairo frida 8-18 tab, PO, l 20:29: Daily, PRN [place] 00 Itching / rash / allergy symptoms, # 20 tab, 0 Refill(s) Stool Yes PO, Memoria Softener 8-18 Bedtime, 0 l with 20:29: Refill(s) [place] Laxative aspirin-ome No 1 tab, PO, Memoria prazole 325 8-18 Daily, 0 l mg-40 mg 20:29: Refill(s) Herm joss oral 00 delayed release tablet Centrum Yes PO, Daily, Jairo frida Silver 8-18 0 l Ultra 20:29: Refill(s) [place] Claritin Yes 10 mg = 1 Jairo [...] Silver 8-18 0 l Ultra 20:29: Refill(s) [place] Claritin Yes 10 mg = 1 Jairo frida 8-18 tab, PO, l 20:29: Daily, PRN [place] 00 Itching / rash / allergy symptoms, # 20 tab, 0 Refill(s) Stool Yes PO, Memoria Softener 8-18 Bedtime, 0 l with 20:29: Refill(s) [place] Laxative aspirin-ome No 1 tab, PO, Memoria prazole 325 8-18 Daily, 0 l mg-40 mg 20:29: Refill(s) Herm joss oral 00 delayed release tablet Centrum Yes PO, Daily, Jairo frida Silver 8-18 0 l Ultra 20:29: Refill(s) [place] Claritin Yes 10 mg = 1 Jairo frida 8-18 tab, PO, l 20:29: Daily, PRN [place] 00 Itching / rash / allergy symptoms, # 20 tab, 0 Refill(s) Stool Yes PO, Memoria Softener 8-18 Bedtime, 0 l with 20:29: Refill(s) [place] Laxative aspirin-ome No 1 tab, PO, Memoria prazole 325 8-18 Daily, 0 l mg-40 mg 20:29: Refill(s) Herm joss oral 00 delayed release tablet Centrum Yes PO, Daily, Jairo frida Silver 8-18 0 l Ultra 20:29: Refill(s) [place] Claritin Yes 10 mg = 1 Jairo frida 8-18 tab, PO, l 20:29: Daily, PRN [place] 00 Itching / rash / allergy symptoms, # 20 tab, 0 Refill(s) Stool 0 Yes PO, Memoria Softener 8-18 Bedtime, 0 l with 20:29: Refill(s) [place] Laxative aspirin-ome No 1 tab, PO, Memoria prazole 325 8-18 Daily, 0 l mg-40 mg 20:29: Refill(s) Herm joss oral 00 delayed release tablet Centrum Yes PO, Daily, Jairo frida Silver 8-18 0 l Ultra 20:29: Refill(s) [place] Claritin Yes 10 mg = 1 Jairo [...] Silver 8-18 0 l Ultra 20:29: Refill(s) [place] Claritin Yes 10 mg = 1 Jairo [...] Silver 8-18 0 l Ultra 20:29: Refill(s) [place] Claritin Yes 10 mg = 1 Jairo frida 8-18 tab, PO, l 20:29: Daily, PRN [place] 00 Itching / rash / allergy symptoms, # 20 tab, 0 Refill(s) Stool Yes PO, Memoria Softener 8-18 Bedtime, 0 l with 20:29: Refill(s) [place] Laxative 00 aspirin-ome No 1 tab, PO, Memoria prazole 325 8-18 Daily, 0 l mg-40 mg 20:29: Refill(s) Herm joss oral 00 delayed release tablet cephalexin Yes 500 mg = 1 M [...] Lewis 00 90 tab, 0 Refill(s) Insulin 2021-0 Yes 1 unit, Memoria Lispro 100 8-18 [...] tab, PO, l tablet 20:28: Daily, # [place] 00 90 tab, 0 Refill(s) Insulin Yes [...] tab, PO, l tablet 20:28: Daily, # [place] 00 90 tab, 0 Refill(s) Insulin Yes [...] tab, PO, l tablet 20:27: Daily, # [place] 00 90 tab, 1 Refill(s) Metoprolol Yes [...] tab, PO, l tablet 20:27: Daily, # [place] 00 90 tab, 1 Refill(s) Metoprolol 0 [...] tab, PO, l tablet 20:27: Daily, # [place] 00 90 tab, 1 Refill(s) Metoprolol 0 [...] 50 MG 20:27: BID, # 30 Herm jsos Oral Tablet 00 tab, 0 Refill(s) levothyroxi 0 Yes 150 Memori a ne 150 mcg 8-18 microgram l (0.15 mg) 20:27: = 1 tab, Herm joss oral tablet 00 PO, Daily, # 30 tab, 0 Refill(s) lisinopril 2020-0 Yes 5 mg = 1 Mem oria 5 mg oral 8-18 tab, PO, l tablet 20:27: Daily, # [place] 00 90 tab, 1 Refill(s) Metoprolol 0 [...] tab, PO, l tablet 20:27: Daily, # [place] 00 90 tab, 1 Refill(s) Metoprolol 0 [...] Lewis 00 90 tab, 1 Refill(s) Metoprolol 2020-0 [...] tab, PO, l tablet 20:27: Daily, # [place] 00 90 tab, 1 Refill(s) Metoprolol Yes [...] Routine, Intra-op DUOVISC Yes PRN, Univers (DUOVISC 08 Starting ity of VISCO 17:26: Krystle 10/14/20 [...] Units ity of (HUMALOG 14:34: under the [facility] s DESTIN 02 skin 3 Medical KWIKPEN (three) Branch U-100) 100 times unit/mL daily. inph Insulin Yes 45U inject 45 Unive rs Glargine 4-08 Units ity of (LANTUS 14:34: under the [place] SOLOSTAR 02 skin 2 Medical U-100 (two) Branch INSULIN) times 100 unit/mL daily. (3 mL) injection amLODIPine Yes 10mg Take 10 mg U nivers 10 mg 08 by mouth ity of tablet 14:34: daily. [place] [address] Medical Branch buPROPion Yes 150mg Take 150 [...] mouth ity o f tablet 14:34: daily. [address] Branch Levothyroxi Yes 150ug Take 150 U nivers ne 100 mcg 4-08 mcg by ity of capsule 14:34: mouth [place] 02 daily. Medical Branch aspirin 325 Yes 325mg Take 325 U nivers mg tablet 4-08 mg by ity of 14:34: mouth [place] 02 daily. Medical Branch Cholecalcif Yes Take by Uni vers daryl, 4-08 mouth. ity of Vitamin D3, 14:34: [place] (VITAMIN [address] [place] [address] D3) 25 mcg [place] (1,000 unit) capsule folic Yes Take by Univers acid/multiv 4-08 mouth ity of it-min/lute 14:34: daily. [place] in (CENTRUM 02 [facility] ORAL) mydriatic 2020- No .5mL 0.5 mL, Univ ers #5 10-14-08 Right Eye, ity of ophthalmic 12:45: 12:48 [...] Units ity of (HUMALOG 09:34: under the [facility] s DESTIN 02 skin 3 Medical KWIKPEN [...] by mouth ity of tablet 09:34: daily. [place] Medical Branch buPROPion Yes [...] 4-08 mouth. ity of Vitamin D3, 09:34: [place] (VITAMIN 02 Medical D3) 25 mcg Branch (1,000 unit) capsule folic Yes Take by Univers acid/multiv 4-08 mouth ity of it-min/lute 09:34: daily. Jonelle aleman in (CENTRUM 02 Medical SILVER Branch ORAL) insulin 2019- Yes 30U [id number] Inject 30 [facility] lispro 1-[id number] (HumaLOG 00:00: 3D under the Hosp [facility] U-100 00 skin 3 l Insulin) (three) 100 unit/mL times a injection day before meals. insulin 2020- Yes 30U [id number] Inject 30 [facility] lispro 1-[id number] (HumaLOG 00:00: 3D under the [facility] U-100 00 skin 3 l Insulin) (three) 100 unit/mL times a injection day before meals. insulin 2020- Yes 30U [id number] Inject 30 [facility] lispro 1-[id number] (HumaLOG 00:00: 3D under the [facility]osp [facility] U-100 00 skin 3 l Insulin) (three) 100 unit/mL times a injection day before meals. insulin 2020- Yes 30U [id number] Inject 30 [facility] lispro 1-[id number] (HumaLOG 00:00: 3D under the [facility]osp [facility] U-100 00 skin 3 l Insulin) (three) 100 unit/mL times a injection day before meals. insulin 2019-07 Yes 30U [id number] Inject 30 [facility] lispro 1-[id number] (HumaLOG 00:00: 3D under the [facility]osp [facility] U-100 00 skin 3 l Insulin) (three) 100 unit/mL times a injection day before meals. insulin 2020- Yes 30U [id number] Inject 30 [facility] lispro 1-[id number] (HumaLOG 00:00: 3D under the [facility] U-100 00 skin 3 l Insulin) (three) 100 unit/mL times a injection day before meals. insulin 2020- Yes 30U [id number] Inject 30 [facility] lispro 1-[id number] (HumaLOG 00:00: 3D under the [facility] U-100 00 skin 3 l Insulin) (three) 100 unit/mL times a injection day before meals. insulin 2020-1 Yes 30U [id number] Inject 30 [facility] lispro 1-[id number] (HumaLOG 00:00: 3D under the [facility]osp [facility] U-100 00 skin 3 l Insulin) (three) 100 unit/mL times a injection day before meals. insulin 2020-0 Yes 30U inject 30 Unive rs lispro 9-24 Units ity of (HUMALOG 16:37: under the [facility] s DESTIN 58 skin 3 Medical KWIKPEN [...] by mouth ity of tablet 16:37: daily. [place] [address] Medical Branch buPROPion 2020-0 Yes 150mg Take [...] by mouth ity of tablet 16:37: daily. [place] [address] Medical Branch metoprolol 2020-0 Yes 50mg Take 50 mg U nivers succinate 9-24 by mouth 2 ity of XL 50 mg 24 16:37: (two) [place] hr tablet 58 times Medical daily. Branch pantoprazol 2020-0 Yes 40mg Take 40 mg Univers e 40 mg EC 9-24 by mouth ity o f tablet 16:37: daily. [place] [address] Medical Branch Levothyroxi 2020-0 Yes 150ug Take 150 U nivers ne 100 mcg 9-24 mcg by ity of capsule 16:37: mouth [place] 58 daily. Medical Branch aspirin 325 2020-0 Yes 325mg Take 325 U nivers mg tablet 9-24 mg by ity of 16:37: mouth [place] 58 daily. Medical Branch Cholecalcif 2020-0 Yes Take by Uni vers drayl, 9-24 mouth. ity of Vitamin D3, 16:37: [place] (VITAMIN [address] [place] [address] D3) 25 mcg Branch (1,000 unit) capsule folic 2020-0 Yes Take by Univers acid/multiv 9-24 mouth ity of it-min/lute 16:37: daily. [facility] s in (CENTRUM 58 Medical SILVER Branch ORAL) insulin 2020-0 Yes 30U inject 30 Unive rs lispro 9-24 Units ity of (HUMALOG 16:37: under the [facility] s DESTIN 58 skin 3 Medical KWIKPEN [...] by mouth ity of tablet 16:37: daily. [place] [address] Medical Branch buPROPion 2020-0 Yes 150mg Take [...] by mouth ity of tablet 16:37: daily. [place] [address] Medical Branch metoprolol 2020-0 Yes 50mg Take 50 mg U nivers succinate 9-24 by mouth 2 ity of XL 50 mg 24 16:37: (two) [place] hr tablet 58 times Medical daily. Branch pantoprazol 2020-0 Yes 40mg Take 40 mg Univers e 40 mg EC 9-24 by mouth ity o f tablet 16:37: daily. [place] [address] Medical Branch Levothyroxi 2020-0 Yes 150ug Take [...] of Vitamin D3, 16:37: [place] (VITAMIN [address] [place] [address] D3) 25 mcg Branch (1,000 unit) capsule folic 2020-0 Yes Take by Univers acid/multiv 9-24 mouth ity of it-min/lute 16:37: daily. [facility] s in (CENTRUM 58 Medical SILVER Branch ORAL) insulin 2020-0 Yes 30U inject 30 Unive rs lispro 9-24 Units ity of (HUMALOG 16:37: under the [facility] s DESTIN 58 skin 3 Medical KWIKPEN [...] by mouth ity of tablet 16:37: daily. [place] [address] Medical Branch buPROPion 2020-0 Yes 150mg Take [...] by mouth ity of tablet 16:37: daily. [place] [address] Medical Branch metoprolol 2020-0 Yes 50mg Take 50 mg U nivers succinate 9-24 by mouth 2 ity of XL 50 mg 24 16:37: (two) [place] hr tablet 58 times Medical daily. Branch pantoprazol 2020-0 Yes 40mg Take 40 mg Univers e 40 mg EC 9-24 by mouth ity o f tablet 16:37: daily. [place] [address] Medical Branch Levothyroxi 2020-0 Yes 150ug Take [...] of Vitamin D3, 16:37: [place] (VITAMIN [address] [place] [address] D3) 25 mcg Branch (1,000 unit) capsule folic 2020-0 Yes Take by Univers acid/multiv 9-24 mouth ity of it-min/lute 16:37: [place] (CENTRUM 58 Medical SILVER Branch ORAL) insulin 2020-0 Yes 30U inject 30 Unive rs lispro 9-24 Units ity of (HUMALOG 16:37: under the [facility] s DESTIN 58 skin 3 Medical KWIKPEN [...] by mouth ity of tablet 16:37: daily. [place] [address] Medical Branch buPROPion 2020-0 Yes 150mg Take [...] by mouth ity of tablet 16:37: daily. [place] [address] Medical Branch metoprolol 2020-0 Yes 50mg Take 50 mg U nivers succinate 9-24 by mouth 2 ity of XL 50 mg 24 16:37: (two) [place] hr tablet 58 times Medical daily. Branch pantoprazol 2020-0 Yes 40mg Take 40 mg Univers e 40 mg EC 9-24 by mouth ity o f tablet 16:37: daily. [place] [address] Medical Branch Levothyroxi 2020-0 Yes 150ug Take [...] of Vitamin D3, 16:37: [place] (VITAMIN 58 Medical D3) 25 mcg Branch (1,000 unit) capsule folic 2020-0 Yes Take by Univers acid/multiv 9-24 mouth ity of it-min/l[place] 16:37: [place] (CENTRUM 58 Medical SILVER Branch ORAL) insulin 2020-0 Yes 30U inject 30 Unive rs lispro 9-24 Units ity of (HUMALOG 13:50: under the [facility] s DESTIN 18 skin 3 Medical KWIKPEN [...] by mouth ity of tablet 13:50: daily. [place] [address] Medical Branch buPROPion 2020-0 Yes 150mg Take [...] by mouth ity of tablet 13:50: daily. [place] [address] Medical Branch metoprolol 2020-0 Yes 50mg Take 50 mg U nivers succinate 9-24 by mouth 2 ity of XL 50 mg 24 13:50: (two) [place] hr tablet 18 times Medical daily. Branch pantoprazol 2020-0 Yes 40mg Take 40 mg Univers e 40 mg EC 9-24 by mouth ity o f tablet 13:50: daily. [place] [address] Medical Branch Levothyroxi 2020-0 Yes 150ug Take [...] Vitamin D3, 13:50: [place] (VITAMIN 18 [facility] D3) 25 mcg Branch (1,000 unit) capsule folic 2020-0 Yes Take by Univers acid/multiv 9-24 mouth ity of it-min/lute 13:50: daily. [facility] s in (CENTRUM 18 Medical SILVER Branch ORAL) insulin 2020-0 Yes 30U inject 30 Unive rs lispro 9-24 Units ity of (HUMALOG 13:50: under the [facility] s DESTIN 18 skin 3 Medical KWIKPEN [...] by mouth ity of tablet 13:50: daily. [place] [address] Medical Branch buPROPion 2020-0 Yes 150mg Take [...] by mouth ity of tablet 13:50: daily. [place] [address] Medical Branch metoprolol 2020-0 Yes 50mg Take 50 mg U nivers succinate 9-24 by mouth 2 ity of XL 50 mg 24 13:50: (two) [place] hr tablet 18 times Medical daily. Branch pantoprazol 2020-0 Yes 40mg Take 40 mg Univers e 40 mg EC 9-24 by mouth ity o f tablet 13:50: daily. [place] [address] Medical Branch Levothyroxi 2020-0 Yes 150ug Take [...] Vitamin D3, 13:50: [place] (VITAMIN 18 Medical D3) 25 mcg Branch [...] s, ONCE ity of 13:04: 13:33 INTRA [place] 00 :17 PROCEDURE, Medical Starting Branch [facility] 04/01/20 at 0804, Until [place] 04/01/20 at 0833, Routine, Intra-op lidocaine 2020-0 2020- No ONCE INTRA U nivers 1% 04-01 PROCEDURE, ity of (XYLOCAINE) 13:02: 13:33 Starting [place] 100 mg/10 00 :17 [place] Medical mL (1 %) 04/01/20 at [facility] h injection 0802, Until [place] 04/01/20 at [...] [place] Medical mL (1 %) 04/01/20 at [facility] h injection 0802, Until [place] 04/01/20 at 0833, Routine, Intra-op remifentani 2020-0 2020- No Intravenou Univers L (ULTIVA) 04-0124 s, ONCE ity o f injection 13:02: 13:33 INTRA [place] 00 :17 PROCEDURE, [facility] Starting Branch [facility] 04/01/20 at 0802, Until [place] 04/01/20 at 0833, Routine, Intra-op lactated 2020-0 2020- No IV Univers ringers IV 04-01 Infusion, ity of infusion 13:01: 13:33 [place]UOUS [place] 00 :17 PRN, [facility] Starting [facility], [facility] 04/01/20 at 0801, Until [place] 04/01/20 at 0833, Routine, Intra-op lactated 2020-0 2020- No IV Univers ringers IV 04-01 Infusion, ity of infusion 13:01: 13:33 [place] 00 :17 PRN, [facility] Starting [facility], [facility] 04/01/20 at 0801, Until [place] 04/01/20 at 0833, Routine, Intra-op tetracaine 2020-0 Yes PRN, Univers (PONTOCAINE 04-01 Starting ity of ) 0.5 % 12:53: [place] ophthalmic 00 04/01/20 at [facility] ica drops 0753, Branch Until Discontinu ed, Routine, Intra-op water for 2020-0 Yes PRN, Univers irrigation 04-01 Starting ity o f irrigation 12:53: [place] solution 04/01/20 at Medic al 0753, Branch Until Discontinu ed, Routine, Intra-op NaCl 0.9% 2020-0 Yes PRN, Univers (NS) 04-01 Starting ity of injection 12:52: [place] 04/01/20 at [facility] 0752, [place] Until Discontinu ed, Routine, Intra-op neomycin-po 2020-0 Yes PRN, Univer s lymyxin-dex 04-01 Starting ity of amethasone 12:52: [place] (MAXITROL) 00 04/01/20 at [facility] ical 3.5 0752, [place] mg/g-10,000 Until unit/g-0.1 Discontinu % ed, ophthalmic Routine, ointment Intra-op gentamicin 2020-0 Yes PRN, Univers injection 04-01 Starting ity of 12:52: [place] 04/01/[address] Until Discontinu ed, VIOLETTA, Intra-op eye block 2020-0 Yes PRN, Univers syringe 11 04-01 Starting ity o f mL 12:51: [place] 04/01/[address] Until Discontinu ed, Intra-op EPINEPHrine 2020-0 Yes PRN, Univer s (PF) 04-01 Starting ity of 1:1,000 (1 12:51: [place] mg/mL) 04/01/20 at [facility] (ADRENALIN [address] [place] [address] (PF)) Until injection Discontinu ed, Routine, Intra-op DUOVISC 2020-0 Yes PRN, Univers (DUOVISC 04-01 Starting ity of VISCO 12:51: [place] ELASTIC) 3 04/01/20 at [facility] ica %-4 %(0.5 075, [place] mL) 1 % Until (0.55 mL) Discontinu intraocular ed, injection Routine, Intra-op dexamethaso 2020-0 Yes PRN, Univer s ne 04-01 Starting ity of (DECADRON 12:50: [place] PHOSPHATE) 04/01/20 at [facility] ical injection [address] [place] [address] Until Discontinu ed, Routine, Intra-op ceFAZolin 2020-0 Yes PRN, Univers (ANCEF) 04-01 Starting ity of injection 12:50: [place] 04/01/[address] Until Discontinu ed, VIOLETTA, Intra-op balanced 2020-0 Yes PRN, Univers salt soln 04-01 Starting ity of no.2 irrig. 12:49: [place] (BSS) 04/01/20 at [facility] ophthalmic [address] [place] [address] solution Until Discontinu ed, Routine, Intra-op lactated 2020-0 2020- No 1000mL at [address] [place] [id number] rs ringers IV 04-01 09-24 mL/hr, ity [...] 00 every l morning. Metoprolol Metoprolol No Metoprolol Succinate Succinate Succinate [...] Calcium 40 MG 40 MG 40 MG Immunizations Ordered Immunization Filled Immunization Date Status Commen ts Source Name Name PFIZER COVID-19 MRNA 2021-07-27 Completed Meth odist VACCINATION 00:00:00 [facility] PFIZER COVID-19 MRNA 2021-07-27 Completed Meth odist VACCINATION 00:00:00 [facility] PFIZER COVID-19 MRNA 2021-07-27 Completed Meth odist VACCINATION 00:00:00 [facility] PFIZER COVID-19 MRNA 2021-07-27 Completed Meth odist VACCINATION 00:00:00 [facility] PFIZER COVID-19 MRNA 2021-07-27 Completed Meth odist VACCINATION 00:00:00 [facility] PFIZER COVID-19 MRNA 2021-07-27 Completed Meth odist VACCINATION 00:00:00 [facility] PFIZER COVID-19 MRNA 2021-07-27 Completed Meth odist VACCINATION 00:00:00 [facility] PFIZER COVID-19 MRNA 2021-07-27 Completed Meth odist VACCINATION 00:00:00 [facility] PFIZER COVID-19 MRNA 2021-02-25 Completed Meth odist VACCINATION 00:00:00 [facility] PFIZER COVID-19 MRNA 2021-02-25 Completed Meth odist VACCINATION 00:00:00 [facility] PFIZER COVID-19 MRNA 2021-02-25 Completed Meth odist VACCINATION 00:00:00 [facility] PFIZER COVID-19 MRNA 2021-02-25 Completed Meth odist VACCINATION 00:00:00 [facility] PFIZER COVID-19 MRNA 2021-02-25 Completed Meth odist VACCINATION 00:00:00 [facility] PFIZER COVID-19 MRNA 2021-02-25 Completed Meth odist VACCINATION 00:00:00 [facility] PFIZER COVID-19 MRNA 2021-02-25 Completed Meth odist VACCINATION 00:00:00 [facility] PFIZER COVID-19 MRNA 2021-02-25 Completed Meth [...] Comments Source height 2022-08-15 10:20:00 66.0 [in_i] [facility] weight 2022-08-15 10:20:00 224.4 [lb_av] [facility] temperature 2022-08-15 10:20:00 97.0 [degF] [facility] 2022-08-15 10:20:00 36.22 kg/m2 [facility] oximetry 2022-08-15 10:20:00 96 % [facility] respiratory rate 2022-08-15 10:20:00 17 /min [facility] blood pressure 2022-08-15 10:20:00 131 mm[Hg] [facility] systolic [facility] blood pressure 2022-08-15 10:20:00 72 mm[Hg] [facility] diastolic [facility] height 2022-02-27 11:20:00 66.0 [in_i] [facility] weight 2022-02-27 11:20:00 236.6 [lb_av] [facility] temperature 2022-02-27 11:20:00 97.2 [degF] [facility] bmi 2022-02-27 11:20:00 38.18 kg/m2 [facility] oximetry 2022-02-27 11:20:00 94 % [facility] respiratory rate 2022-02-27 11:20:00 16 /min Comm on [facility] blood pressure 2022-02-27 11:20:00 138 mm[Hg] [facility] - systolic [facility] blood pressure 2022-02-27 11:20:00 76 mm[Hg] Common [facility] - diastolic [facility] height 2022-02-27 11:00:00 66.0 [in_i] [facility] weight 2022-02-27 11:00:00 236.6 [lb_av] Common [facility] temperature 2022-02-27 11:00:00 97.2 [degF] Common [facility] bmi 2022-02-27 11:00:00 38.18 kg/m2 [facility] oximetry 2022-02-27 11:00:00 93 % [facility] respiratory rate 2022-02-27 11:00:00 16 /min Comm on [facility] - [facility] blood pressure 2022-02-27 11:00:00 138 mm[Hg] Common [facility] - systolic [facility] blood pressure 2022-02-27 11:00:00 76 mm[Hg] Common [facility] - diastolic [facility] Systolic blood 2020-10-14 14:10:00 120 mm[Hg] Univer sity of [facility] Diastolic blood 2020-10-14 14:10:00 65 mm[Hg] Unive rsity of [facility] Heart rate 2020-10-14 14:10:00 81 /min [facility] Body temperature 2020-10-14 14:10:00 36.06 [facility] 2020-10-14 14:10:00 13 /min [facility] Oxygen saturation in 2020-10-14 14:10:00 99 /min [facility] Arterial blood by [facility] Pulse oximetry Branch Body height 2020-10-01 18:42:00 167.6 cm [facility] Body weight 2020-10-01 18:42:00 108.4 kg [facility] BMI 2020-10-01 18:42:00 38.59 kg/m2 [facility]i ty [facility] [place] [facility] Systolic blood 2020-10-14 14:10:00 120 mm[Hg] Univer sity of pressure [place] [facility] Diastolic blood 2020-10-14 14:10:00 65 [...] 99 /min University of Arterial blood by [place] [employer] Pulse oximetry Branch Body height 2020-10-01 18:42:00 [...] 100 /min University of Arterial blood by [place] [employer] jose Pulse oximetry Branch Respiratory rate 2020-04-01 13:45:00 18 /min Univ ersity [facility] [place] [facility] Body height 2020-03-30 17:15:00 167.6 cm [facility]i [facility] [place] [facility] Body weight 2020-03-30 17:15:00 108.41 kg [facility] [place] [facility] BMI 2020-03-30 17:15:00 38.58 kg/m2 [facility] [place] [facility] Systolic blood 2020-04-01 13:55:00 113 mm[Hg] Univer sity of pressure [place] [facility] Diastolic blood 2020-04-01 13:55:00 56 mm[Hg] Unive rsity of pressure [facility] Heart rate 2020-04-01 13:55:00 63 /min Universi ty [facility] Body temperature 2020-04-01 13:55:00 36.11 Katharina [facility] Oxygen saturation in 2020-04-01 13:50:00 100 /min University Arterial blood by [facility] Pulse oximetry Branch Respiratory rate 2020-04-01 13:45:00 18 /min [facility] Body height 2020-03-30 17:15:00 167.6 [facility] Body weight 2020-03-30 17:15:00 108.41 kg [facility] BMI 2020-03-30 17:15:00 38.58 kg/m2 [facility] Respiratory rate 2020-04-01 13:32:00 18 /min [facility] Respiratory rate 2020-04-01 13:32:00 18 /min [facility] Heart rate 2022-04-26 17:30:00 76 /min [facility] Oxygen saturation in 2022-04-26 17:30:00 93 /min [facility] Arterial blood by Pulse oximetry Systolic blood 2022-04-26 17:20:00 139 mm[Hg] [facility] pressure Diastolic blood 2022-04-26 17:20:00 67 mm[Hg] [facility] pressure Respiratory rate 2022-04-26 17:20:00 16 /min [facility] Body temperature 2022-04-26 17:00:00 36.44 Katharina [facility] Body height 2022-04-24 17:06:00 167.6 cm [facility] Body weight 2022-04-24 17:06:00 110.224 kg [facility] [place] [facility] BMI 2022-04-24 17:06:00 39.22 kg/m2 [facility] [place] [facility] Systolic (mm Hg) 2021-02-23 20:05:00 [place] Diastolic (mm Hg) 2021-02-23 20:05:00 Mem orial [place] Heart Rate 2021-02-23 20:05:00 [facility] Respitory Rate 2021-02-23 20:05:00 Memori al [place] Height 2021-02-23 20:05:00 162.56 cm [facility] Weight 2021-02-23 20:05:00 [facility] BMI Calculated 2021-02-23 20:05:00 Sriram Larkin Procedures Procedure Date / Time Performing Source Performed Clinician [id number] 2022-07-06 [facility] 00:00:00 [facility] [id number] 2022-07-04 [facility] 00:00:00 [facility] [id number] 2022-07-01 [facility] 00:00:00 [facility] [id number] 2022-06-29 [facility] 00:00:00 [facility] [id number] 2022-06-28 [facility] 00:00:00 [facility] [id number] 2022-06-27 [facility] 00:00:00 [facility] [id number] 2022-06-27 [facility] 00:00:00 [facility] [id number] 2022-06-27 [facility] 00:00:00 [facility] [id number] 2022-06-27 [facility] 00:00:00 [facility] [id number] 2022-06-26 [facility] 00:00:00 [facility] [id number] 2022-06-26 [facility] 00:00:00 [facility] [id number] 2022-06-26 [facility] 00:00:00 [facility] [id number] 2022-06-26 [facility] 00:00:00 [facility] [id number] 2022-06-26 [facility] 00:00:00 [facility] [id number] 2022-06-24 [facility] 00:00:00 [facility] [id number] 2022-06-23 [facility] 00:00:00 [facility] [id number] 2022-06-22 [facility] 00:00:00 [facility] POC GLUCOSE 2022-04-26 Jose Becker pital 16:04:00 E. MO AN ELECTIVE ENDOTRACHEAL 2022-04-26 Mariely De La Cruz [facility] AIRWAY 15:12:00 LAPAROSCOPIC REMOVAL OR 2022-04-26 [facility] REPOSITIONING OF PERITONEAL 14:56:00 E. DIALYSIS CATHETER ESTIMATED GFR 2022-04-26 [facility] pital 13:00:00 E. POC PANEL 2022-04-26 [facility] pital 13:00:00 E. POC GLUCOSE 2022-03-06 [facility] pital 16:00:00 E. SURGICAL PATHOLOGY REQUEST 2022-03-06 [facility] 15:28:00 E. POC GLUCOSE 2022-03-06 [facility] pital 15:23:00 E. ANESTHESIA INTUBATION 2022-03-06 [facility] 12:57:00 CHOLECYSTECTOMY, LAPAROSCOPIC 2022-03-06 [facility] 12:44:00 E. INSERTION, CATHETER, 2022-03-06 [facility] DIALYSIS, PERITONEAL, 12:44:00 E. LAPAROSCOPIC ESTIMATED GFR 2022-03-06 [facility] pital 11:50:00 E. POC PANEL 2022-03-06 [facility] pital 11:50:00 E. BASIC METABOLIC PANEL 2022-03-06 [facility] 11:40:00 ESTIMATED GFR 2022-03-06 [facility] 11:40:00 CBC WITH PLATELET AND 2022-03-01 [facility] DIFFERENTIAL 18:18:00 HEMOGLOBIN A1C 2022-03-01 [facility] 18:18:00 PARTIAL THROMBOPLASTIN TIME 2022-03-01 [facility] (PTT) 18:18:00 PROTHROMBIN TIME WITH INR 2022-03-01 [facility] 18:18:00 REFERRAL- REQUEST/RESPONSE 2022-02-07 Doctor Unassigned, Un [facility] 05:01:00 [facility] ECG PRE/POST OP 2021-12-12 [facility] 20:54:02 CBC WITH PLATELET AND 2021-12-12 Licha Ernestina [facility] DIFFERENTIAL 20:25:00 HEMOGLOBIN A1C 2021-12-12 [facility] 20:25:00 TYPE AND SCREEN 2021-12-12 [facility] Ernestina [facility] 20:25:00 PHACOEMULSIFICATION OF 2020-10-14 [facility] CATARACT WITH INTRAOCULAR 13:33:00 [facility] LENS IMPLANT POCT GLUCOSE (AUTOMATED) 2020[facility]10-14 [facility] 12:38:00 [facility] POCT GLUCOSE(AGE >30DAYS) 2020-10-14 Anita Edwards [facility] 12:35:00 Medical Branch ASSIGNMENT OF BENEFITS 2020-10-12 Doctor Unassigned, [facility] 16:32:53 [facility] POCT GLUCOSE(AGE >30DAYS) 2020-04-01 Bora Skinner [facility] 12:03:00 Medical Branch ASSIGNMENT OF BENEFITS 2020-03-30 Doctor Unassigned, [facility] 16:01:28 [facility] NOTICE OF BILLING PRACTICES 2020-03-23 [facility] FOR [facility] PATIENTS 20:49:43 [facility] PATIENT FINANCIAL POLICY 2020-03-23 Doctor Unassigned, [facility] 20:49:19 [facility] NO SHOW OR MISSED APPOINTMENT 2020-03-23 Doctor Unassigned, [facility] POLICY ACKNOWLEDGEMENT 20:48:59 [facility] NOTICE OF PRIVACY PRACTICES 2020-03-23 [facility] 20:48:48 [facility] CONSENT/REFUSAL FOR DIAGNOSIS 2020-03-23 Doctor Unassigned, [facility] AND TREATMENT 20:48:30 [facility] ASSIGNMENT OF BENEFITS 2020-03-23 Doctor Unassigned, [facility] 20:48:19 [facility] PHYSICIAN ORDERS 2020-03-23 Doctor Unassigned, [facility] 05:01:00 [facility] Knee replacement<sup>2</sup> Mem orial [place] Fusion<sup>1</sup> [facility] Plan of Care Planned Activity Planned Date Details Comments Source Future Scheduled 2023-03-[address] [facility] Test 00:00:00 (Season Ended) [code = Medic al Center INFLUENZA VACCINE (Season Ended)] Future Scheduled 2022-10-09 Hepatitis C screening [facility] Test 14:08:24 (procedure) [code = 789567904] Future Scheduled 2022-10-09 SHINGLES VACCINES (1 Met [facility] [place] [facility] Test 14:08:24 of 2) [code = SHINGLES VACCINES (1 of 2)] Future Scheduled 2022-10-09 BREAST CANCER [facility] Test 14:08:24 SCREENING [code = BREAST CANCER SCREENING] Future Scheduled 2022-10-09 COLONOSCOPY SCREENING [facility] Test 14:08:24 [code = COLONOSCOPY SCREENING] Future Scheduled 2022-10-09 65+ [facility]AL [facility] 14:08:24 VACCINE (3 - PCV) [code = 65+ PNEUMOCOCCAL VACCINE (3 - PCV)] Future Scheduled 2022-10-09 INFLUENZA VACCINE Method [facility] Test 14:08:24 [code = INFLUENZA VACCINE] Future Scheduled 2022-10-09 Hepatitis C screening [facility] Test 14:08:24 (procedure) [code = [id number]] Future Scheduled 2022-10-09 SHINGLES VACCINES (1 Met [facility] [place] [facility] Test 14:08:24 of 2) [code = SHINGLES VACCINES (1 of 2)] Future Scheduled 2022-10-09 BREAST CANCER [facility] Test 14:08:24 SCREENING [code = BREAST CANCER SCREENING] Future Scheduled 2022-10-09 COLONOSCOPY SCREENING [facility] Test 14:08:24 [code = COLONOSCOPY SCREENING] Future Scheduled 2022-10-09 65+ PNEUMOCOCCAL [facility] Test 14:08:24 VACCINE (3 - PCV) [code = 65+ PNEUMOCOCCAL VACCINE (3 - PCV)] Future Scheduled 2022-10-09 INFLUENZA VACCINE [facility] Test 14:08:24 [code = INFLUENZA VACCINE] Future Scheduled 2022-10-09 Hepatitis C screening [facility] Test 14:08:24 (procedure) [code = [id number]] Future Scheduled 2022-10-09 SHINGLES VACCINES (1 Met [facility] [place] [facility] Test 14:08:24 of 2) [code = SHINGLES VACCINES (1 of 2)] Future Scheduled 2022-10-09 BREAST CANCER [facility] Test 14:08:24 SCREENING [code = BREAST CANCER SCREENING] Future Scheduled 2022-10-09 COLONOSCOPY SCREENING [facility] Test 14:08:24 [code = COLONOSCOPY SCREENING] Future Scheduled 2022-10-09 65+ PNEUMOCOCCAL [facility] Test 14:08:24 VACCINE (3 - PCV) [code = 65+ PNEUMOCOCCAL VACCINE (3 - PCV)] Future Scheduled 2022-10-09 INFLUENZA VACCINE [facility] Test 14:08:24 [code = INFLUENZA VACCINE] Future Scheduled 2022-09-25 Hepatitis C screening [facility] Test 16:30:22 (procedure) [code = [id number]] Future Scheduled 2022-09-25 SHINGLES VACCINES (1 Met [facility] Test 16:30:22 of 2) [code = SHINGLES VACCINES (1 of 2)] Future Scheduled 2022-09-25 BREAST CANCER [facility] Test 16:30:22 SCREENING [code = BREAST CANCER SCREENING] Future Scheduled 2022-09-25 COLONOSCOPY SCREENING [facility] Test 16:30:22 [code = COLONOSCOPY SCREENING] Future Scheduled 2022-09-25 65+ PNEUMOCOCCAL [facility] Test 16:30:22 VACCINE (3 - PCV) [code = 65+ PNEUMOCOCCAL VACCINE (3 - PCV)] Future Scheduled 2022-09-25 INFLUENZA VACCINE [facility] Test 16:30:22 [code = INFLUENZA VACCINE] Future Scheduled 2022-07-09 [place] [facility]ING [facility] DEPRESSION SCREENING (12+)] Future Scheduled 2022-06-22 Hepatitis C screening [facility] Test 00:46:40 (procedure) [code = [id number]] Future Scheduled 2022-06-22 SHINGLES VACCINES ([facility] 00:46:40 of 2) [code = SHINGLES VACCINES (1 of 2)] Future Scheduled 2022-06-22 BREAST CANCER [facility] Test 00:46:40 SCREENING [code = BREAST CANCER SCREENING] Future Scheduled 2022-06-22 COLONOSCOPY SCREENING [facility] Test 00:46:40 [code = COLONOSCOPY SCREENING] Future Scheduled 2022-06-22 65+ [facility]OCOCCAL [facility] Test 00:46:40 VACCINE (3 - PCV) [code = 65+ PNEUMOCOCCAL VACCINE (3 - PCV)] Future Scheduled 2022-06-22 INFLUENZA VACCINE [facility] Test 00:46:40 [code = INFLUENZA VACCINE] Future Scheduled 2022-06-22 Hepatitis C screening [facility] Test 00:46:40 (procedure) [code = [id number]] Future Scheduled 2022-06-22 SHINGLES VACCINES (1 Met [facility] Test 00:46:40 of 2) [code = SHINGLES VACCINES (1 of 2)] Future Scheduled 2022-06-22 BREAST CANCER [facility] Test 00:46:40 SCREENING [code = BREAST CANCER SCREENING] Future Scheduled 2022-06-22 COLONOSCOPY SCREENING [facility] Test 00:46:40 [code = COLONOSCOPY SCREENING] Future Scheduled 2022-06-22 65+ PNEUMOCOCCAL [facility] Test 00:46:40 VACCINE (3 - PCV) [code = 65+ PNEUMOCOCCAL VACCINE (3 - PCV)] Future Scheduled 2022-06-22 INFLUENZA VACCINE [facility] [facility]:46:40 [code = INFLUENZA VACCINE] Future Scheduled 2022-06-22 Hepatitis C screening [facility] Test 00:46:40 (procedure) [code = 278984985] Future Scheduled 2022-06-22 SHINGLES VACCINES (1 Met [facility] Test 00:46:40 of 2) [code = SHINGLES VACCINES (1 of 2)] Future Scheduled 2022-06-22 BREAST CANCER [facility] Test 00:46:40 SCREENING [code = BREAST CANCER SCREENING] Future Scheduled 2022-06-22 COLONOSCOPY SCREENING [facility] Test 00:46:40 [code = COLONOSCOPY SCREENING] Future Scheduled 2022-06-22 65+ [facility] VACCINE (3 - PCV) [code = 65+ PNEUMOCOCCAL VACCINE (3 - PCV)] Future Scheduled 2022-06-22 INFLUENZA VACCINE [facility] Test 00:46:40 [code = INFLUENZA VACCINE] Future Scheduled 2022-06-11 HEPATITIS B VACCINES Met [facility] Test 01:18:56 (1 of 3 - 3-dose series) [code = HEPATITIS B VACCINES (1 of 3 - 3-dose series)] Future Scheduled 2022-06-11 Hepatitis C screening [facility] Test 01:18:56 (procedure) [code = 290348155] Future Scheduled 2022-06-11 SHINGLES VACCINES (1 Met [facility] Test 01:18:56 of 2) [code = SHINGLES VACCINES (1 of 2)] Future Scheduled 2022-06-11 BREAST CANCER [facility] Test 01:18:56 SCREENING [code = BREAST CANCER SCREENING] Future Scheduled 2022-06-11 COLONOSCOPY SCREENING [facility] Test 01:18:56 [code = COLONOSCOPY SCREENING] Future Scheduled 2022-06-11 65+ [facility] 01:18:56 VACCINE (3 - PCV) [code = 65+ PNEUMOCOCCAL VACCINE (3 - PCV)] Future Scheduled 2022-06-11 INFLUENZA VACCINE [facility] Test 01:18:56 [code = INFLUENZA [...] [facility] colon (procedure) [code = 391750529] Future Scheduled [address] [facility] 00:[facility] colon (procedure) [code = 689145406] Future Scheduled 1956 [facility] Future Scheduled 1956 [facility]oidoscopy [facility] Future Scheduled [address] [facility] Test 00:00:00 malignant ne[facility] breast (procedure) [code = 342434394] Future Scheduled [address] [facility] Test 00:00:00 (combo) [code = CT Medical C enter Colonography (combo)] Future Scheduled [address] [facility] Test 00:00:00 [facility] colon (procedure) [code = 037960843] Future Scheduled [address] [facility] Test 00:00:00 [facility] colon (procedure) [code = 660816215] Future Scheduled 1956 DXA SCAN [code = DXA [facility] Test 00:00:00 SCAN] [facility] Future Scheduled [address] [facility] Test 00:00:00 [facility] colon (procedure) [code = 277924653] Future Scheduled [address] [facility] Test 00:00:00 [facility] colon (procedure) [code = 029809950] Future Scheduled 1956 [facility] Future Scheduled [address] [facility] Test 00:00:00 malignant [facility] breast (procedure) [code = 524393891] Future Scheduled [address] [facility] Test 00:00:00 [facility] breast (procedure) [code = 808177396] Future Scheduled [address] [facility] Test 00:00:00 (combo) [code = CT Medical C enter Colonography (combo)] Future Scheduled [address] [facility] Test 00:00:00 [facility] colon (procedure) [code = 774760055] Future Scheduled [address] [facility] Test 00:00:00 [facility] colon (procedure) [code = 389772727] Future Scheduled 1956 DXA SCAN [code = DXA [facility] Test 00:00:00 SCAN] [facility] Future Scheduled [address] [facility] Test 00:00:00 malignant [facility] colon (procedure) [code = 598866247] Future Scheduled [address] [facility] Test 00:00:00 [facility] colon (procedure) [code = 895250088] Future Scheduled 1956 [facility] [address] [facility] Test 00:00:00 (combo) [code = CT Medical C enter Colonography (combo)] Future Scheduled [address] [facility] Test 00:00:00 malignant [facility] breast (procedure) [code = 785450431] Future Scheduled [address] [facility] Test 00:00:00 (combo) [code = CT Medical C enter Colonography (combo)] Future Scheduled [address] [facility] Test 00:00:00 malignant [facility] colon (procedure) [code = 448739036] Future Scheduled [address] [facility] Test 00:00:00 malignant [facility] colon (procedure) [code = 255068725] Future Scheduled [address] [facility] Test 00:00:00 malignant [facility]oplasm [facility] colon (procedure) [code = 997600774] Future Scheduled 1956 DXA SCAN [code = DXA [facility] Test 00:00:00 SCAN] [facility] Future Scheduled [address] [facility] Test 00:00:00 [facility] colon (procedure) [code = 193186480] Future Scheduled [address] [facility] Test 00:00:00 malignant [facility] colon (procedure) [code = 020456739] Future Scheduled 1956 [facility]oid[facility]] [facility] Future Scheduled [address] [facility] Test 00:00:00 malignant neoplasm [facility] colon (procedure) [code = 855316124] Future Scheduled [address] [facility] Test 00:00:00 malignant [facility] breast (procedure) [code = 456134633] Future Scheduled [address] [facility] Test 00:00:00 (combo) [code = CT Medical C enter Colonography (combo)] Future Scheduled [address] [facility] Test 00:00:00 malignant [facility] colon (procedure) [code = 437880175] Future Scheduled [address] [facility] Test 00:00:00 malignant [facility] colon (procedure) [code = 581443021] Future Scheduled 1956 DXA SCAN [code = DXA [facility] Test 00:00:00 SCAN] [facility] Future Scheduled 1956 DXA SCAN [code = DXA [facility] Test 00:00:00 SCAN] [facility] Future Scheduled [address] [facility] Test 00:00:00 malignant [facility]oplasm [facility] colon (procedure) [code = 437096509] Future Scheduled [address] [facility] Test 00:00:00 malignant neoplasm [facility] colon (procedure) [code = 909810839] Future Scheduled 1956 [facility]igmoidoscopy [facility]code [facility]] [facility] Future Scheduled [address] [facility] Test 00:00:00 malignant neoplasm of [facility] colon (procedure) [code = 342853913] Future Scheduled [address] [facility] Test 00:00:00 malignant neoplasm of [facility] breast (procedure) [code = 498671604] Future Scheduled [address] [facility] Test 00:00:00 (combo) [code = CT Medical C enter Colonography (combo)] Future Scheduled [address] [facility] Test 00:00:00 malignant neoplasm of [facility] colon (procedure) [code = 664070102] Future Scheduled 1956 [facility]oidoscopy [facility]code [facility] 00:[facility]] [facility] Future Scheduled [address] [facility] Test 00:00:00 malignant neoplasm of [facility] breast (procedure) [code = 300920341] Future Scheduled [address] [facility] Test 00:00:00 (combo) [code = CT Medical C enter Colonography (combo)] Future Scheduled [address] [facility] Test 00:00:00 malignant neoplasm of [facility] colon (procedure) [code = 601363548] Future Scheduled [address] [facility] Test 00:00:00 malignant [facility]oplasm [facility] colon (procedure) [code = 472535234] Future Scheduled [address] [facility] Test 00:00:00 malignant neoplasm of [facility] colon (procedure) [code = 297231179] Future Scheduled 1956 DXA SCAN [code = DXA [facility] Test 00:00:00 SCAN] [facility] Future Scheduled [address] [facility] Test 00:00:00 malignant neoplasm of [facility] Center colon (procedure) [code = 008969359] Future Scheduled [address] [facility] Test 00:00:00 malignant neoplasm of [facility] colon (procedure) [code = 321930314] Future Scheduled 1956 DXA SCAN [code = DXA [facility] Test 00:00:00 SCAN] [facility] Future Scheduled [address] [facility] Test 00:00:00 malignant neoplasm of [facility] colon (procedure) [code = 871409155] Encounters Start End Encounter Admission Attending Care Care Encounter Source Date/Time Date/Time Type Type Clinicians Facility Department ID 2022-08-14 Outpatient Mora, STLMLC STLMLC [id number] Common 07:43:01 [facility] [address] [facility] 2022-08-04 Outpatient Mora, STLMLC STLMLC [id number] Common 13:26:01 [facility] [address] [facility] 2022-08-03 Outpatient Mora, STLMLC STLMLC [id number] Common 14:53:01 [facility] [address] [facility] 2022-07-25 Outpatient Mora, STLMLC STLMLC [id number] Common 15:59:02 [facility] [address] [facility] 2022-07-24 Outpatient Mora, STLMLC STLMLC [id number] Common 07:39:00 [facility] [address] [facility] 2022-07-19 Outpatient Mora, STLMLC STLMLC [id number] Common 08:46:01 [facility] [address] [facility] 2022-07-15 Inpatient AR Schmid, JUSTINECL ADMI [id number] [facility] 11:05:[address] 2022-06-20 [facility] [id number] [facility] 00:[facility]:00 Encounter [facility] 2022-06-20 [facility] [id number] [facility] 00:00:00 Encounter [facility] 2022-06-15 Outpatient Mora, STLMLC STLMLC [id number] Common 08:26:02 [facility] [address] [facility] 2022-05-25 Outpatient Mora, STLMLC STLMLC [id number] Common 11:25:01 [facility] [address] [facility] 2022-02-27 Outpatient Mora, STLMLC STLMLC [id number] Common 10:42:02 [facility] 2022-02-03 Outpatient Myrick, STLMLC STLMLC [id number] Common 12:12:00 [facility] 2022-01-31 Outpatient Myrick, STLMLC STLMLC [id number] Common 12:38:00 [facility] 2021-12-02 Outpatient Myrick, STLMLC STLMLC [id number] Common 15:52:01 [facility] 2021-12-01 Outpatient Myrick, STLMLC STLMLC [id number] Common 10:24:03 [facility] 2021-11-21 Outpatient Myrick, STLMLC STLMLC [id number] Common 10:05:12 [facility] 2021-11-08 Outpatient Myrick, STLMLC STLMLC [id number] Common 08:37:01 [facility] 2021-11-04 Outpatient Myrick, STLMLC STLMLC [id number] Common 14:15:04 [facility] 2021-10-31 Outpatient Arrieta, Na STLMLC STLMLC [id number] Common 09:40:02 [facility] 2021-05-08 Outpatient Estevan MORASE NEEBENEZER OPH [id number] Univers 08:53:46 [facility] 2021-05-06 Outpatient R ALEISHA NEEBENEZER ECTOR [id number] Univers 18:47:42 [facility] 2022-08-15 2022-08-15 OFFICE STLMLC STLC [id number] Co mmon 00:00:00 00:00:00 VISIT [facility] 4 [facility] 2022-07-26 2022-07-26 (TEL) STLMLC STLMLC [id number] Co mmon 00:00:00 00:00:00 [facility] 2022-07-13 2022-07-13 (TEL) STLMLC STLMLC [id number] Co mmon 00:00:00 00:00:00 [facility] 2022-06-22 2022-07-07 Inpatient UR Adonis Gaytan [facility].01 G001 [id number] [facility] 09:01:00 17:11:00 00 [facility] 2022-06-08 2022-06-08 (TEL) STLMLC STLMLC [id number] Co mmon 00:00:00 00:00:00 [facility] 2022-05-31 2022-05-31 (TEL) STLMLC STLMLC [id number] Co mmon 00:00:00 00:00:00 [facility] 2022-04-26 2022-04-26 [facility], 1.2.840.1 [id number] 21 [id number] Methodi 06:55:00 12:55:00 Encounter Jose E. 29809.1.[address] 3.430.2.7 Hospit a .3.819814 l .8 2022-04-26 2022-04-26 [facility], 1.2.840.1 [id number] 21 [id number] Methodi 06:55:00 12:55:00 Encounter Jose E. 31475.1.[address] 3.430.2.7 Hospit a .3.689533 l .8 2022-04-26 2022-04-26 Anesthesia Reji Waldrop 1.2.840.1 1 [id number] Methodi 09:56:00 11:03:00 Event Ce Knutson 89515.1.[address] 3.430.2.7 Hospit a .3.308782 l .8 2022-04-26 2022-04-26 Anesthesia Reji Waldrop 1.2.840.1 1 [id number] Methodi 09:56:00 11:03:00 Event Ce Knutson 20127.1.[address] 3.430.2.7 Hospit a .3.934700 l .8 2022-04-26 2022-04-26 Surgery Oppermann, 1.2.840.1 [id number] Methodi 09:15:00 10:45:00 Jose E. 51613.1.1 677 s t 3.430.2.7 Hospit a .3.052332 l .8 2022-04-26 2022-04-26 Surgery Oppermann, 1.2.840.1 [id number] 585 [id number] Methodi 09:15:00 10:45:00 Jose E. 21362.1.1 677 s t 3.430.2.7 Hospit a .3.705835 l .8 2022-04-26 2022-04-26 Travel 1.2.840.1 1.2.741.518 1160 745544 Methodi 00:00:00 00:00:[address] 3.430.2.7 0.2.7.3.698 Ho spita .3.878720 084.8 l .8 2022-04-26 2022-04-26 Travel 1.2.840.1 1.2.781.266 4846 480678 Methodi 00:00:00 00:00:[address] 3.430.2.7 0.2.7.3.698 Ho spita .3.023691 084.8 l .8 2022-04-24 2022-04-24 Travel 1.2.840.1 1.2.873.724 0715 008612 Methodi 00:00:00 00:00:[address] 3.430.2.7 0.2.7.3.698 Ho spita .3.675390 084.8 l .8 2022-04-24 2022-04-24 Travel 1.2.840.1 1.2.212.459 8967 523855 Methodi 00:00:00 00:00:[address] 3.430.2.7 0.2.7.3.698 Ho spita .3.841210 084.8 l .8 2022-04-21 2022-04-21 Prep for Oppermann, 1.2.840.1 [id number] 21 [id number] Methodi 00:00:00 00:00:00 Surgery Jose E. 11506.1.1 940 s t 3.430.2.7 Hospit a .3.906603 l .8 2022-04-21 2022-04-21 Orders Oppermann, 1.2.840.1 [id number] 147 [id number] Methodi 00:00:00 00:00:00 Only Jose E. 65367.1.1 613 s t 3.430.2.7 Hospit a .3.252842 l .8 2022-04-21 2022-04-21 Prep for Oppermann, 1.2.840.1 [id number] 21 [id number] Methodi 00:00:00 00:00:00 Surgery Jose E. 14750.1.1 940 s t 3.430.2.7 Hospit a .3.879616 l .8 2022-04-21 2022-04-21 Orders Oppermann, 1.2.840.1 [id number] 640 [id number] Methodi 00:00:00 00:00:00 Only Jose E. 61081.1.1 613 s t 3.430.2.7 Hospit a .3.588327 l .8 2022-04-05 2022-04-05 Outpatient Estevan [facility] [id number] Univers 15:00:00 15:00:00 CARSON adam [facility] 2022-03-21 2022-03-21 Office Oppermann, 1.2.840.1 [id number] 350 [id number] Methodi 11:30:00 12:00:24 Visit Jose E. 96101.1.1 407 s t 3.430.2.7 Hospit a .3.294120 l .8 2022-03-21 2022-03-21 [facility] 1.2.840.1 [id number] 389 [id number] Methodi 11:30:00 12:00:24 Visit Jose LuevanoShaji 14327.1.1 407 s t 3.430.2.7 Hospit a .3.955000 l .8 2022-03-21 2022-03-21 Travel 1.2.840.1 1.2.104.434 6622 890011 Methodi 00:00:00 00:00:[address] 3.430.2.7 0.2.7.3.698 Ho spita .3.187482 084.8 l .8 2022-03-21 2022-03-21 Travel 1.2.840.1 1.2.533.338 5700 043341 Methodi 00:00:00 00:00:[address] 3.430.2.7 0.2.7.3.698 Ho spita .3.019045 084.8 l .8 2022-03-15 2022-03-15 Outpatient Estevan [facility] [id number] Univers 10:00:00 10:00:00 CARSON adam [facility] 2022-03-14 2022-03-14 (TEL) STLC STLC [id number] Co mmon 00:00:00 00:00:00 [facility] 2022-03-06 2022-03-06 [facility], 1.2.840.1 [id number] 21 [id number] Methodi 05:46:00 12:05:00 Encounter Jose LuevanoShaji 97791.1.[address] 3.430.2.7 Hospit a .3.371975 l .8 2022-03-06 2022-03-06 [facility], 1.2.840.1 [id number] 21 [id number] Methodi 05:46:00 12:05:00 Encounter Jose LuevanoShaji 72484.1.[address] 3.430.2.7 Hospit a .3.188636 l .8 2022-03-06 2022-03-06 Anesthesia Jory Santoro 1.2.840. 1 [id number] Methodi 07:44:00 09:46:00 Event Corrina Cavanaugh 43384.1.[address] 3.430.2.7 Hospit a .3.202089 l .8 2022-03-06 2022-03-06 Anesthesia Jory Santoro 1.2.840. 1 [id number] Methodi 07:44:00 09:46:00 Event Corrina Cavanaugh 43511.1.[address] 3.430.2.7 Hospit a .3.593509 l .8 2022-03-06 2022-03-06 Surgery Oppermann, 1.2.840.1 [id number] 531 [id number] Methodi 07:45:00 09:05:00 Jose E. 27582.1.1 269 s t 3.430.2.7 Hospit a .3.692245 l .8 2022-03-06 2022-03-06 Surgery Oppermann, 1.2.840.1 [id number] 811 [id number] Methodi 07:45:00 09:05:00 Jose E. 70726.1.1 269 s t 3.430.2.7 Hospit a .3.050270 l .8 2022-03-01 2022-03-01 Pre-Admiss Oppermann, 1.2.840.1 [id number] Methodi 13:00:00 14:00:00 ion Jose E. 13105.1.1 998 s t Testing 3.430.2.7 Hospit a .3.196512 l .8 2022-03-01 2022-03-01 Pre-Admiss Oppermann, 1.2.840.1 [id number] Methodi 13:00:00 14:00:00 ion Jose E. 49697.1.1 998 s t Testing 3.430.2.7 Hospit a .3.923037 l .8 2022-03-01 2022-03-01 Travel 1.2.840.1 1.2.115.167 1112 191700 Methodi 00:00:00 00:00:[address] 3.430.2.7 0.2.7.3.698 Ho spita .3.673609 084.8 l .8 2022-03-01 2022-03-01 Travel 1.2.840.1 1.2.317.808 7771 300963 Methodi 00:00:00 00:00:[address] 3.430.2.7 0.2.7.3.698 Ho spita .3.287096 084.8 l .8 2022-02-27 2022-02-27 [facility] [id number] Common 00:00:00 00:00:00 [facility] Spirit WELLNESS - CHI VISIT [facility] 2022-02-27 2022-02-27 [facility] [id number] Co mmon 00:00:00 00:00:00 VISIT Spirit ESTAB PT - CHI LEVEL 4 [facility] 2022-02-27 2022-02-27 (TEL) [facility] [id number] Co mmon 00:00:00 00:00:00 Spirit - CHI [facility] 2022-02-07 2022-02-07 Orders Doctor ROSELIA 1.2.840.114 [id number] Univers 00:00:00 00:00:00 Only Unassigned, CINDY 350.1.13.10 [place] [facility] 4.2.7.2.686 [place] as [id number] [place] [address] [place] 2022-02-02 2022-02-02 (TEL) [facility] [id number] Co mmon 00:00:00 00:00:00 Spirit - [facility] 2022-01-31 2022-01-31 Travel 1.2.840.1 1.2.013.775 5948 267531 Methodi 00:00:00 00:00:[address] 3.430.2.7 0.2.7.3.698 Ho spita .3.601291 084.8 l .8 2022-01-31 2022-01-31 Travel 1.2.840.1 1.2.434.709 9376 664780 Methodi 00:00:00 00:00:[address] 3.430.2.7 0.2.7.3.698 Ho spita .3.434118 084.8 l .8 2022-01-27 2022-01-27 (TEL) STLMLC STLMLC [id number] Co mmon 00:00:00 00:00:00 [facility] 2021-12-30 2021-12-30 (TEL) STLMLC STLMLC [id number] Co mmon 00:00:00 00:00:00 [facility] 2021-12-19 2021-12-19 (TEL) STLMLC STLMLC [id number] Co mmon 00:00:00 00:00:00 [facility] 2021-12-13 2021-12-13 (TEL) STLMLC STLMLC [id number] Co mmon 00:00:00 00:00:00 [facility] 2021-12-12 2021-12-12 Pre-Admiss Optremaynemann, 1.2.840.1 [id number] Methodi 15:00:00 16:00:00 ion Jose E. 29164.1.1 317 s t Testing 3.430.2.7 Hospit a .3.926118 l .8 2021-12-12 2021-12-12 Pre-Admiss Oppermann, 1.2.840.1 [id number] Methodi 15:00:00 16:00:00 ion Jose E. 04462.1.1 317 s t Testing 3.430.2.7 Hospit a .3.339796 l .8 2021-12-12 2021-12-12 Travel 1.2.840.1 1.2.760.322 0777 573172 Methodi 00:00:00 00:00:[address] 3.430.2.7 0.2.7.3.698 Ho spita .3.228483 084.8 l .8 2021-12-12 2021-12-12 Travel 1.2.840.1 1.2.888.044 3526 028790 Methodi 00:00:00 00:00:[address] 3.430.2.7 0.2.7.3.698 Ho spita .3.026369 084.8 l .8 2021-12-08 2021-12-08 (TEL) STLMLC STLMLC [id number] Co mmon 00:00:00 00:00:00 [facility] 2021-12-01 2021-12-01 (TEL) STLMLC STLMLC [id number] Co mmon 00:00:00 00:00:00 [facility] 2021-11-30 2021-11-30 (TEL) STLMLC STLMLC [id number] Co mmon 00:00:00 00:00:00 [facility] 2021-11-25 2021-11-25 (TEL) STLMLC STLMLC [id number] Co mmon 00:00:00 00:00:00 [facility] 2021-11-21 2021-11-21 (TEL) STLMLC STLMLC [id number] Co mmon 00:00:00 00:00:00 [facility] 2021-11-18 2021-11-18 (TEL) STLMLC STLMLC [id number] Co mmon 00:00:00 00:00:00 [facility] 2021-11-15 2021-11-15 Office Eugenio, 1.2.840.1 [id number] 632 [id number] Methodi 13:00:00 14:01:57 Visit Jose Keller 04792.1.1 465 s t 3.430.2.7 Hospit a .3.914586 l .8 2021-11-15 2021-11-15 Office Baraksaul, 1.2.840.1 [id number] 719 [id number] Methodi 13:00:00 14:01:57 Visit Jose Keller 57522.1.1 465 s t 3.430.2.7 Hospit a .3.347130 l .8 2021-11-15 2021-11-15 Prep for Allen, 1.2.840.1 [id number] 02901 38736 Methodi 00:00:00 00:00:00 Surgery [place] P [address]56.1.[address] 3.430.2.7 Hospit a .3.587523 l .8 2021-11-15 2021-11-15 Travel 1.2.840.1 1.2.375.876 2079 344301 Methodi 00:00:00 00:00:[address] 3.430.2.7 0.2.7.3.698 Ho spita .3.927042 084.8 l .8 2021-11-15 2021-11-15 [id number] 00:00:00 00:00:00 [facility] 2021-11-15 2021-11-15 Prep for Allen, 1.2.840.1 [id number] 70554 60632 Methodi 00:00:00 00:00:00 Surgery [place] P [address]49.1.[address] 3.430.2.7 Hospit a .3.932203 l .8 2021-11-15 2021-11-15 Travel 1.2.840.1 1.2.057.146 6850 [id number] Methodi 00:00:00 00:00:[address] 3.430.2.7 0.2.7.3.698 Ho spita .3.919704 084.8 l .8 2021-11-14 2021-11-14 (TEL) [facility] [id number] Co mmon 00:00:00 00:00:00 [facility] 2021-11-04 2021-11-04 (TEL) STLMLC STLMLC [id number] Co mmon 00:00:00 00:00:00 [facility] 2021-10-20 2021-10-20 Telephone Stephane, 1.2.840.1 [id number] 2100 [id number] Methodi 00:00:00 00:00:[address] 3.430.2.7 Hospit a .3.314590 l .8 2021-10-20 2021-10-20 Telephone Stephane, 1.2.840.1 [id number] 2100 220836 Methodi 00:00:00 00:00:[address] 3.430.2.7 Hospit a .3.139082 l .8 2021-10-05 2021-10-05 Documentat Chace, 1.2.840.1 [id number] 21 [id number] Methodi 00:00:00 00:00:00 isabel[address] Ortiz [address]19.1.[address] 3.430.2.7 Hospit a .3.990999 l .8 2021-09-22 2021-09-22 Travel 1.2.840.1 1.2.138.483 8482 343190 Methodi 00:00:00 00:00:[address] 3.430.2.7 0.2.7.3.698 Ho spita .3.355703 084.8 l .8 2021-08-23 2021-08-23 Ambulatory nullFlavo MNA [id number] Memoria 14:15:00 14:15:00 Pre-Reg r Neurology 06 l Estelle Saucedo 2021-08-23 2021-08-23 Ambulatory nullFlavo MNA [id number] Memoria 14:15:00 14:15:00 Pre-Reg r Neurology 06 l Estelle Saucedo 2021-08-23 2021-08-23 Outpatient MHIE IE [id number] Memoria 08:15:00 08:15:00 06 josy Saucedo 2021-08-23 2021-08-23 Outpatient CORWIN Michel [facility] [id number] 08:15:00 08:15:00 Farhan 06 Arian 2021-07-12 2021-07-12 Ambulatory nullFlavo MNA [id number] Memoria 14:15:00 14:15:00 Pre-Reg r Neurology 05 josy Saucedo 2021-07-12 2021-07-12 Ambulatory nullFlavo MNA [id number] Memoria 14:15:00 14:15:00 Pre-Reg r Neurology 05 josy Saucedo 2021-07-12 2021-07-12 [id number] 08:15:00 08:15:00 Farhan Mela Don 2021-06-14 2021-06-14 Telephone Courtney, 1.2.840.1 [id number] 623 [id number] Methodi 00:00:00 00:00:[address] 3.430.2.7 Hospit a .3.456582 l .8 2021-06-01 2021-06-01 Outpatient MHIE MHIE [id number] Memoria 09:00:00 09:00:00 05 josy Saucedo 2021-05-19 2021-05-19 Ambulatory nullFlavo MNA [id number] Memoria 14:15:00 14:15:00 Pre-Reg r Neurology 04 josy Saucedo 2021-05-19 2021-05-19 Ambulatory nullFlavo MNA [id number] Memoria 14:15:00 14:15:00 Pre-Reg r Neurology 04 josy Saucedo 2021-05-19 2021-05-19 Outpatient CORWIN Michel [facility] [id number] 08:15:00 08:15:00 Farhan Mehdi Don 2021-05-10 2021-05-10 Outpatient MHIE MHIE [id number] Memoria 15:45:00 15:45:00 04 josy Saucedo 2021-03-31 2021-03-31 Ambulatory nullFlavo MNA [id number] Memoria 13:15:00 13:15:00 Pre-Reg r Neurology 03 l Estelle Saucedo 2021-03-31 2021-03-31 Ambulatory nullFlavo MNA [id number] Memoria 13:15:00 13:15:00 Pre-Reg r Neurology 03 l Estelle Saucedo 2021-03-31 2021-03-31 Outpatient MHIE MHIE [id number] Memoria 08:15:00 08:15:00 03 josy Saucedo 2021-03-31 2021-03-31 [facility] [id number] 08:15:00 08:15:00 Farhan 03 Arian 2021-02-23 2021-02-24 Outpatient nullFlavo MNA [id number] Memoria 20:00:00 04:59:59 r Neurology 02 l Estelle Saucedo 2021-02-23 2021-02-24 Outpatient nullFlavo MNA [id number] Memoria 20:00:00 04:59:59 r Neurology 02 l Estelle Saucedo 2021-02-23 2021-02-23 Outpatient [facility] [id number] 15:00:00 23:59:59 Farhan 02 Arian 2021-02-23 2021-02-23 Outpatient MHIE MHIE [id number] Memoria 15:00:00 15:00:00 02 josy Saucedo 2020-10-14 2020-10-14 Surgery Aleisha [facility] 1.2.840.114 [id number] Univers 08:34:00 09:10:00 Fausto Garza 350.1.13.10 i [place] [id number] [facility] Center 020 Branch 2020-10-14 2020-10-14 Surgery [place] 1.2.840.114 [id number] 08:34:00 09:10:00 Greg 350.1.13.10 [place] 4.2.7.2.686 Surgical [id number] Center 020 2020-10-12 2020-10-12 Paint Mixer Hand Jyoti, Adc Lab Main [facility] 1.2.8 40.114 [id number] Univers 11:40:06 11:55:06 Visit Fausto Moraes Greg 350.1.1 3.10 ity of [place] Profess[place] [id number] Nm dical [address] 2020-10-12 2020-10-12 Paint Mixer Hand Jyoti, [facility] 1.2.840.114 [id number] 11:40:06 11:55:06 Visit Lab Main Greg 350.1.13.10 [place] 4.2.7.2.686 Professio [id number] [address] 2020-10-12 2020-10-12 Laboratory Only, [facility] Test [facility] 1.2.840. 114 [id number] [facility] 11:34:36 11:49:36 Only Fausto Moraes 350.1.1 3.10 [place] [id number] [address] 2020-10-12 2020-10-12 Laboratory Only, [facility] 1.2.840.114 8 [id number] 11:34:36 11:49:36 Only Test Greg 350.1.13.10 [place] 4.2.7.2.686 [place] [id number] [facility] 2020-10-12 2020-10-12 Outpatient R ALEISHA [facility] [id number] [facility] 10:45:00 10:45:00 FAUSTO adam [facility] 2020-10-12 2020-10-12 Orders Doctor VELOZ 1.2.840.114 [id number] Univers 00:00:00 00:00:00 Only Unassigned, CINDY 350.1.13.10 ity of [place] [facility] 4.2.7.2.686 [place] as [id number] [facility] 009 Branch 2020-10-12 2020-10-12 Orders Doctor VELOZ 1.2.840.114 [id number] 00:00:00 00:00:00 Only Unassigned, CINDY 350.1.13.10 [place] [facility] 4.2.7.2.686 [id number] 009 2020-05-13 2020-05-14 Outpatient SUSAN WHITE [facility] 021 [id number] [place] 00:00:00 00:00:00 361 Method i 2020-05-11 2020-05-11 Outpatient AMY [facility] [id number] [place] 00:00:00 00:00:00 TUSHAR 611 Method i 2020-04-01 2020-04-01 [facility] 1.2.840.114 [id number] [facility] 06:36:00 10:10:00 Encounter Fausto Garza 350.1.13.10 [place] [id number] [address] 2020-04-01 2020-04-01 [facility] 1.2.840.114 [id number] 06:36:00 10:10:00 Encounter Fausto Garza 350.1.13.10 [place] 4.2.7.2.686 Surgical [id number] [place] 07 2020-04-01 2020-04-01 Anesthesia Demetrio Christensen [facility] 1.2.840.11 4 [id number] 08:01:00 08:33:00 [place] [facility] 350.1.13.10 [place] 4.2.7.2.686 Surgical [id number] [place] 020 2020-04-01 2020-04-01 Anesthesia Demetrio Christensen [facility] 1.2.840.11 4 [id number] [facility] 08:01:00 08:33:00 [place] [facility] 350.1.13.10 ity [place] [id number] [facility] 0[address] [place] 2020-03-31 2020-03-31 [facility] [id number] Univers 09:30:00 09:30:00 FAUSTO adam [facility] 2020-03-30 2020-03-30 Outpatient R [facility] [id number] Univers 12:45:00 12:45:00 [facility] 2020-03-30 2020-03-30 Laboratory Only, Adc Test [facility] 1.2.840. 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 Hand Jyoti, Juanpablo Lab Main [facility] 1.2.8 40.114 [id number] [facility] 15:51:10 16:06:10 Visit Fausto Moraes 350.1.1 3.10 ity of [place] 4[place]2.7.2.[place] [facility] [id number] Nm dical [address] 2020-03-23 2020-03-23 Outpatient R ALEISHA, [facility] [id number] [facility] 16:00:00 16:00:00 FAUSTO adam [facility] 2020-03-23 2020-03-23 Outpatient AMY [facility] [id number] [place] 00:00:00 00:00:00 TUSHAR 636 Method i 2020-03-23 2020-03-23 Outpatient MODESTA [facility] [id number] [place] 00:00:00 00:00:00 KI, [address] Results Test Description Test Time Test Comments Results Result Comments Source GLUCOSE BEDSIDE 2022-07-07 15:54:00 Test Item Value Reference Range Interpretation Comme nts GLUCOSE BEDSIDE (test code = 122 MG/DL 70-110 H Performed by certified 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 [facility]) [facility] GLUCOSE [id number] 12:13:00 Test Item Value Reference Range Interpretation Comments GLUCOSE BEDSIDE (test 156 MG/DL 70-110 H Perfor med by certified code = GLUBED) 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 [facility] GLUCOSE [id number] 10:42:00 Test Item Value Reference Range Interpretation Comments GLUCOSE BEDSIDE (test 181 MG/DL 70-110 H Perfor med by certified code = GLUBED) 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 [facility] GLUCOSE [id number] 20:05:00 Test Item Value Reference Range Interpretation Comments GLUCOSE BEDSIDE (test 90 MG/DL 70-110 N Perfor med by certified code = GLUBED) 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 [facility] GLUCOSE [id number] 15:46:00 Test Item Value Reference Range Interpretation Comments GLUCOSE BEDSIDE (test 212 MG/DL 70-110 H Perfor med by certified code = GLUBED) 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 [facility] GLUCOSE [id number] 12:44:00 Test Item Value Reference Range Interpretation Comments GLUCOSE BEDSIDE (test 120 MG/DL 70-110 H Perfor med by certified code = GLUBED) 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 [facility] BASIC METABOLIC [id number] 08:34:00 Test Item Value Reference Range Interpretation [...] code = 9.5 mg/dL 8.0-10.5 N CA) [id number] 08:34:00 Test Item Value Reference Range Interpretation Comments PHOSPHOROUS (test code = PHOS) 2.3 MG/DL 2.5-4.9 L [id number] 08:34:00 Test Item Value Reference Range Interpretation Comments MAGNESIUM (test code = MAG) 2.18 mg/dL 1.80-2.40 N [id number] 08:29:00 Test Item Value Reference Range Interpretation Comments VANCOMYCIN (test code = VANCO) 20.2 mcg/mL CBC W/AUTO [id number] 08:27:00 Test Item Value Reference Range Interpretation [...] REQUIRED (test code NO = MDIFF) CALCIUM [id number] 08:20:00 Test Item Value Reference Range Interpretation Comments CALCIUM IONIZED (test code = AMILCAR) 1.21 MMOL/L 1.09-1.30 N GLUCOSE [id number] 05:39:00 Test Item Value Reference Range Interpretation Comments GLUCOSE BEDSIDE (test 175 MG/DL 70-110 H Perfor med by certified code = GLUBED) 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 [facility] GLUCOSE [id number] 20:49:00 Test Item Value Reference Range Interpretation Comments GLUCOSE BEDSIDE (test 167 MG/DL 70-110 H Perfor med by certified code = GLUBED) 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 [facility] GLUCOSE [id number] 17:03:00 Test Item Value Reference Range Interpretation Comments GLUCOSE BEDSIDE (test 127 MG/DL 70-110 H Perfor med by certified code = GLUBED) 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 [facility] GLUCOSE [id number] 11:54:00 Test Item Value Reference Range Interpretation Comments GLUCOSE BEDSIDE (test 177 MG/DL 70-110 H Perfor med by certified code = GLUBED) 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 [facility] GLUCOSE [id number] 06:39:00 Test Item Value Reference Range Interpretation Comments GLUCOSE BEDSIDE (test 153 MG/DL 70-110 H Perfor med by certified code = GLUBED) 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 [facility] GLUCOSE [id number] 19:51:00 Test Item Value Reference Range Interpretation Comments GLUCOSE BEDSIDE (test 165 MG/DL 70-110 H Perfor med by certified code = GLUBED) 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 [facility] GLUCOSE [id number] 17:15:00 Test Item Value Reference Range Interpretation Comments GLUCOSE BEDSIDE (test 188 MG/DL 70-110 H Perfor med by certified code = GLUBED) 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 [facility] GLUCOSE [id number] 12:16:00 Test Item Value Reference Range Interpretation Comments GLUCOSE BEDSIDE (test 132 MG/DL 70-110 H Perfor med by certified code = GLUBED) 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 [facility] GLUCOSE [id number] 10:20:00 Test Item Value Reference Range Interpretation Comments GLUCOSE BEDSIDE (test 131 MG/DL 70-110 H Perfor med by certified code = GLUBED) 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 [facility] CBC W/AUTO [id number] 08:33:00 Test Item Value Reference Range Interpretation [...] (test code NO = MDIFF) BASIC METABOLIC [id number] 07:37:00 Test Item Value Reference Range Interpretation [...] code = 10.1 mg/dL 8.0-10.5 N [place]) [id number] 07:37:00 Test Item Value Reference Range Interpretation Comments PHOSPHOROUS (test code = PHOS) 3.4 MG/DL 2.5-4.9 N [id number] 07:37:00 Test Item Value Reference Range Interpretation Comments MAGNESIUM (test code = MAG) 2.31 mg/dL 1.80-2.40 [id number] 06:49:00 Test Item Value Reference Range Interpretation Comments VANCOMYCIN (test code = VANCO) 19.9 mcg/mL GLUCOSE [id number] 06:17:00 Test Item Value Reference Range Interpretation Comments GLUCOSE BEDSIDE (test 173 MG/DL 70-110 H Perfor med by certified code = GLUBED) 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 : 1955 Age/S: 67/F [address] [place] [address] Unit #: [id number] Loc: G.4404 [place] [address] Phys: Kasey Mendez MD Acct: [id number] Dis Date: Status: ADM IN PHONE #: [phone] Exam Date: 2021 1506 FAX #: [phone] Reason: left foot ulcers EXAMS: CPT CODE: [id number] NM BONE 3 PHASE 89209 PROCEDURE INFORMATION: Exam: NM Bone and/or Joint, [...] in the anterior and posterior projections. IV Site:2 hour delayed small field of view static [...] of scintigraphic abnormality in the posterior calcaneus. Softtissues: The blood pool images demonstrates no area [...] 1 Signed Report (CONTINUED) FAX: Delmy Howell [phone] [place]: St: ADM FAX: Kasey Ochoa MD [phone] FAX: Jim Mazariegos MD [phone] FAX: Adonis Canchola MD [phone] --------- Name: JENN MOTTA [facility] : 1955 Age/S: 67/F [address] [place] [address] Unit #: [id number] Loc: G.4404 [place] [address] Phys: Kasey Mendez MD Acct: [id number] Dis Date: Status: ADM IN PHONE #: [phone] Exam Date: 07/04/2022 1506 FAX #: [phone] Reason: left foot ulcers EXAMS: CPT CODE: [id number] BONE 3 PHASE 25381 (Continued) noted on the left foot plain radiographs. Electronically Signedby Amador Moura on 07/04/2022 at 1850 Reported and signed by: Gus Moura M.D. CC: Delmy Ashton MD; Kasey Mendez MD; Jim Dhillon MD; Adonis Gaytan MD Technologist: NITA Daniel (N)(CT); ... 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 [facility] GLUCOSE [id number] 15:58:00 Test Item Value Reference Range Interpretation Comments GLUCOSE BEDSIDE (test 131 MG/DL 70-110 H Perfor med by certified code = GLUBED) 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 [facility] GLUCOSE [id number] 11:38:00 Test Item Value Reference Range Interpretation Comments GLUCOSE BEDSIDE (test 202 MG/DL 70-110 H Perfor med by certified code = GLUBED) 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 [facility] BASIC METABOLIC [id number] 08:17:00 Test Item Value Reference Range Interpretation [...] the recommended for bhumika for GFRby the [facility] Foundati on for Adults.The GFR will not calculate if th e sex is unknown or if thepatient's ag e is <18 years. 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 [facility] GLUCOSE [id number] 19:15:00 Test Item Value Reference Range Interpretation Comments GLUCOSE BEDSIDE (test 154 MG/DL 70-110 H Perfor med by certified code = GLUBED) 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 [facility] GLUCOSE [id number] 17:40:00 Test Item Value Reference Range Interpretation Comments GLUCOSE BEDSIDE (test 134 MG/DL 70-110 H Perfor med by certified code = GLUBED) 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 [facility] GLUCOSE [id number] 11:39:00 Test Item Value Reference Range Interpretation Comments GLUCOSE BEDSIDE (test 156 MG/DL 70-110 H Perfor med by certified code = GLUBED) 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 [facility] GLUCOSE [id number] 08:37:00 Test Item Value Reference Range Interpretation Comments GLUCOSE BEDSIDE (test 222 MG/DL 70-110 H Perfor med by certified code = GLUBED) 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 [facility] BASIC METABOLIC [id number] 06:58:00 Test Item Value Reference Range Interpretation [...] code = 9.0 mg/dL 8.0-10.5 N [place]) [id number] 06:58:00 Test Item Value Reference Range Interpretation Comments PHOSPHOROUS (test code = PHOS) 3.0 MG/DL 2.5-4.9 [id number] 06:58:00 Test Item Value Reference Range Interpretation Comments MAGNESIUM (test code = MAG) 1.89 mg/dL 1.80-2.40 N CALCIUM [id number] 06:58:00 Test Item Value Reference Range Interpretation Comments CALCIUM IONIZED (test code = AMILCAR) 1.11 MMOL/L 1.09-1.30 N CBC W/AUTO [id number] 06:47:00 Test Item Value Reference Range Interpretation [...] REQUIRED (test code NO = MDIFF) GLUCOSE [id number] 21:27:00 Test Item Value Reference Range Interpretation Comments GLUCOSE BEDSIDE (test 224 MG/DL 70-110 H Perfor med by certified code = GLUBED) 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 [facility] GLUCOSE [id number] 16:50:00 Test Item Value Reference Range Interpretation Comments GLUCOSE BEDSIDE (test 174 MG/DL 70-110 H Perfor med by certified code = GLUBED) 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 [facility] BASIC METABOLIC [id number] 15:03:00 Test Item Value Reference Range Interpretation [...] the recommended for bhumika for [facility]by the [facility] for Ad[facility].The GFR will not calculate if th e sex is unknown or if thepatient's ag e is <18 years. CREATININE (test 5.0 mg/dL 0.6-1.3 H code = CREAT) CALCIUM (test code = 9.1 mg/dL 8.0-10.5 N CA) POC ARTERIAL BLOOD [id number] 14:28:00 Test Item Value Reference Range Interpretation Comments POC ARTERIAL BLOOD GAS PH (test 7.343 7.35-7.45 L code = POCPHA) POC ARTERIAL BLOOD GAS PCO2 (test 47.7 mmHg 35.0-45 H code = UFVQIS8F) POC TCO2 ARTERIAL (test code = 27.4 POCTCO2) POC ARTERIAL BLOOD GAS PO2 (test 105.9 mmHg 80-100.0 H code = ZQMCC9U) POC HCO3 ARTERIAL (test code = 25.9 MMOL/L 22.0-26.0 N [id number]) POC BASE EXCESS (test code = 0.2 MMOL/L -4.0-4.0 N POCBEA) POC O2 SATURATION (test code = 97.7 % 90-100 N POCO2S) BASIC METABOLIC [id number] 14:28:00 Test Item Value Reference Range Interpretation [...] = POCGLU) 188 MG/DL 70-110 H HEMOGLOBIN [id number] 14:28:00 Test Item Value Reference Range Interpretation Comments HEMOGLOBIN ABG (test code = 10.0 G/DL 11.0-15.0 L HGB/ABG) [id number] 14:28:00 Test Item Value Reference Range Interpretation Comments HEMATOCRIT (test code = HCT/ABG) 29 % 33.0-45.0 L POC LACTIC [id number] 14:28:00 Test Item Value Reference Range Interpretation Comments POC LACTIC ACID (test code = 1.3 mmol/l 0.9-1.7 N POCLAC) GLUCOSE [id number] 14:10:00 Test Item Value Reference Range Interpretation Comments GLUCOSE BEDSIDE (test 182 MG/DL 70-110 H Perfor med by certified code = GLUBED) 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 [facility] GLUCOSE [id number] 10:38:00 Test Item Value Reference Range Interpretation Comments GLUCOSE BEDSIDE (test 251 MG/DL 70-110 H Perfor med by certified code = GLUBED) 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 [facility] [id number] 08:07:00 Test Item Value Reference Range Interpretation Comments VANCOMYCIN (test code = VANCO) 22.4 mcg/mL COMMENTS: 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 CREATININE (test 4.7 mg/dL 0.6-1.3 H code = CREAT) CALCIUM (test code = 9.7 mg/dL 8.0-10.5 N CA) [id number] 07:58:00 Test Item Value Reference Range Interpretation Comments PHOSPHOROUS (test code = PHOS) 4.6 MG/DL 2.5-4.9 N [id number] 07:58:00 Test Item Value Reference Range Interpretation Comments MAGNESIUM (test code = MAG) 2.20 mg/dL 1.80-2.40 N CBC W/AUTO [id number] 07:39:00 Test Item Value Reference Range Interpretation [...] REQUIRED (test code NO = MDIFF) GLUCOSE [id number] 05:20:00 Test Item Value Reference Range Interpretation Comments GLUCOSE BEDSIDE (test 148 MG/DL 70-110 H Perfor med by certified code = GLUBED) 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 : 1955 Age/S: 67/F [address] [place] [address] Bl Unit #: [id number] Loc: [address] [place] [address] Phys: Serge Shetty MD Acct: [id number] Dis Date: Status: ADM IN PHONE #: [phone] Exam Date: 07/01/2022 1535 FAX #: [phone] Reason: hypoxia EXAMS: CPT CODE: [id number] XR CHEST 1 V 54703 PROCEDURE INFORMATION: Exam: XR Chest Exam date [...] Dhillon MD; Adonis Gaytan MD Technologist: RT Max(Estevan) Trnscrd Date/Time/By: 07/01/2022 (1740) : By: [email or web address] Orig Print D/T: S: 07/01/2022 (1740) PAGE 1 Signed Report- US PELVIS [id number] 00:00:00 [facility] : 1955 Sex: F Name: JENN MOTTA [facility] Shoshana Hernandez : 1955 Age/S: 67 / F [address] [place] [address] Blvd Unit #: [id number] Loc: [place] [address] Phys: Adonis Gaytan MD Acct: [id number] Dis Date: Status: ADM IN PHONE #: [phone] Exam Date: 07/01/2022 1406 FAX #: [phone] Reason: DUB...2 weeks of bleeding after 15 years of men EXAMS: CPT CODE: [id number] US PELVIS COMPLETE 51553 PROCEDURE INFORMATION: Exam: US Pelvis Complete, Transabdominal [...] IV contrast can be obtained. 2. Fluid inthe endocervical canal of uncertain etiology, may be related to history of bleeding. 3. Ovaries not visualized. at 1433 Reported and signed by: Vladimir Moran M.D. CC: Delmy Ashton MD; Jim Dhillon MD; Adonis Gaytan MD Technologist: NATALIE Mueller(AB)(OB) Trnctb Date/Time: 07/01/2022 (1433) tANTOINEV Orig Print D/T: S: 07/01/2022 (8574) Probe: PAGE 1 Signed Report- US TRANSVAGINAL NON [id number] 00:00:00[facility] : 1955 Sex: F Name: JENN MOTTA [facility] : 1955 Age/S: 67 / F [address] [place] [address] Unit #: [id number] Loc: [place] [address] Phys: Adonis Gaytan MD Acct: [id number] Dis Date: Status: ADM IN PHONE #: [phone] Exam Date: 07/01/2022 1407 FAX #: [phone] Reason: see US Pelvic Non OB Complete EXAMS: CPT CODE: [id number] [place] [address] PROCEDURE INFORMATION: Exam: US Pelvis Complete, Transabdominal [...] bowel gas. Left ovary/adnexa: Left ovary not visua lized due to overlying bowel gas. Intraperitoneal space: No free fluid is seen. Urinary bladder: Thebladder is not imaged. IMPRESSION: Limited exam 1. Probable uterine fibroids. If further delineationis desired, an MRI pelvis without and with IV contrast can be obtained. 2. Fluid in the endocervical canal of uncertain etiology, may be related to history of bleeding. 3. Ovaries not visualized. 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 [facility] GLUCOSE [id number] 18:11:00 Test Item Value Reference Range Interpretation Comments GLUCOSE BEDSIDE (test 152 MG/DL 70-110 H Perfor med by certified code = GLUBED) 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 [facility] GLUCOSE [id number] 13:24:00 Test Item Value Reference Range Interpretation Comments GLUCOSE BEDSIDE (test 120 MG/DL 70-110 H Perfor med by certified code = GLUBED) 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 [facility] BASIC METABOLIC [id number] 09:03:00 Test Item Value Reference Range Interpretation [...] the recommended for bhumika for [facility]FRby the [facility] for Ad[facility].The GFR will not calculate if th e sex is unknown or if thepatient's ag e is <18 years. 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 [facility] GLUCOSE [id number] 15:48:00 Test Item Value Reference Range Interpretation Comments GLUCOSE BEDSIDE (test 108 MG/DL 70-110 N Perfor med by certified code = GLUBED) 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 [facility] GLUCOSE [id number] 11:35:00 Test Item Value Reference Range Interpretation Comments GLUCOSE BEDSIDE (test 172 MG/DL 70-110 H Perfor med by certified code = GLUBED) 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 [facility] GLUCOSE [id number] 08:25:00 Test Item Value Reference Range Interpretation Comments GLUCOSE BEDSIDE (test 186 MG/DL 70-110 H Perfor med by certified code = GLUBED) 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 [facility] BASIC METABOLIC [id number] 07:50:00 Test Item Value Reference Range Interpretation [...] the recommended for bhumika for GFRby the [facility] Foundati on for Adults.The GFR will not calculate if th e sex is unknown or if thepatient's ag e is <18 years. CREATININE (test 4.8 mg/dL 0.6-1.3 H code = CREAT) CALCIUM (test code = 9.3 mg/dL 8.0-10.5 N CA) [id number] 07:50:00 Test Item Value Reference Range Interpretation Comments PHOSPHOROUS (test code = PHOS) 5.5 MG/DL 2.5-4.9 H [id number] 07:50:00 Test Item Value Reference Range Interpretation Comments MAGNESIUM (test code = MAG) 2.32 mg/dL 1.80-2.40 N CBC W/AUTO [id number] 07:28:00 Test Item Value Reference Range Interpretation [...] REQUIRED (test code NO = MDIFF) GLUCOSE [id number] 19:59:00 Test Item Value Reference Range Interpretation Comments GLUCOSE BEDSIDE (test 141 MG/DL 70-110 H Perfor med by certified code = GLUBED) 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 [facility] GLUCOSE [id number] 18:58:00 Test Item Value Reference Range Interpretation Comments GLUCOSE BEDSIDE (test 156 MG/DL 70-110 H Perfor med by certified code = GLUBED) 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 [facility] GLUCOSE [id number] 11:35:00 Test Item Value Reference Range Interpretation Comments GLUCOSE BEDSIDE (test 112 MG/DL 70-110 H Perfor med by certified code = GLUBED) 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 [facility] GLUCOSE [id number] 09:19:00 Test Item Value Reference Range Interpretation Comments GLUCOSE BEDSIDE (test 167 MG/DL 70-110 H Perfor med by certified code = GLUBED) 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 [facility] BASIC METABOLIC [id number] 08:14:00 Test Item Value Reference Range Interpretation [...] 9.1 mg/dL 8.0-10.5 N CA) BASIC METABOLIC [id number] 06:43:00 Test Item Value Reference Range Interpretation [...] be done morning of Heart CathCBC W/AUTO [id number] 06:23:00 Test Item Value Reference Range Interpretation [...] To be done morning of Heart CathGLUCOSE [id number] 21:04:00 Test Item Value Reference Range Interpretation Comments GLUCOSE BEDSIDE (test 99 MG/DL 70-110 N Perfor med by certified code = GLUBED) 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 [facility] GLUCOSE [id number] 16:53:00 Test Item Value Reference Range Interpretation Comments GLUCOSE BEDSIDE (test 147 MG/DL 70-110 H Perfor med by certified code = GLUBED) 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 [facility] GLUCOSE [id number] 15:43:00 Test Item Value Reference Range Interpretation Comments GLUCOSE BEDSIDE (test 154 MG/DL 70-110 H Perfor med by certified code = GLUBED) 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 [facility] [id number] 14:34:00 Test Item Value Reference Range Interpretation Comments ACT-ISTAT (test code 281 SEC 74-137 H Perform ed by certified = ACTI) 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 [facility] [id number] 08:42:00 Test Item Value Reference Range Interpretation Comments HGBA1C% (test code = HGBA1C%) 5.8 %A1C 4.8-6.0 N GLUCOSE [id number] 08:37:00 Test Item Value Reference Range Interpretation Comments GLUCOSE BEDSIDE (test 171 MG/DL 70-110 H Perfor med by certified code = GLUBED) 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 [facility] CBC W/AUTO [id number] 08:24:00 Test Item Value Reference Range Interpretation [...] (test code NO = MDIFF) BASIC METABOLIC [id number] 07:56:00 Test Item Value Reference Range Interpretation [...] the recommended for bhumika for GFRby the [facility] Foundati on for Adults.The GFR will not calculate if th e sex is unknown or if thepatient's ag e is <18 years. CREATININE (test 4.9 mg/dL 0.6-1.3 H code = CREAT) CALCIUM (test code = 9.4 mg/dL 8.0-10.5 N CA) COAGULATION TIME [id number] 07:05:00 Test Item Value Reference Range Interpretation Comments COAGULATION TIME 245 SECONDS Performed b y ACTIVATED (test code = certi fied 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 operator ACT) at [facility] COAGULATION TIME [id number] 07:05:00 Test Item Value Reference Range Interpretation Comments COAGULATION TIME 234 SECONDS Performed b y ACTIVATED (test code = certi fied 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 operator ACT) at [facility] GLUCOSE [id number] 06:07:00 Test Item Value Reference Range Interpretation Comments GLUCOSE BEDSIDE (test 170 MG/DL 70-110 H Perfor med by certified code = GLUBED) 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 [facility] GLUCOSE [id number] 19:40:00 Test Item Value Reference Range Interpretation Comments GLUCOSE BEDSIDE (test 143 MG/DL 70-110 H Perfor med by certified code = GLUBED) 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 [facility] [id number] 17:22:00 Test Item Value Reference Range Interpretation Comments ACT-ISTAT (test code 275 SEC 74-137 H Perform ed by certified = ACTI) 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 [facility] [id number] 16:11:00 Test Item Value Reference Range Interpretation Comments ACT-ISTAT (test code 251 SEC 74-137 H Perform ed by certified = ACTI) 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 [facility] GLUCOSE [id number] 14:10:00 Test Item Value Reference Range Interpretation Comments GLUCOSE BEDSIDE (test 192 MG/DL 70-110 H Perfor med by certified code = GLUBED) 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 [facility] GLUCOSE [id number] 11:52:00 Test Item Value Reference Range Interpretation Comments GLUCOSE BEDSIDE (test 215 MG/DL 70-110 H Perfor med by certified code = GLUBED) 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 [facility] COVID 19 Asymptomatic IH [id number] 10:33:00 Test Item Value Reference Range Interpretation [...] moderate, high or waivedcomplexit y tests. GLUCOSE [id number] 08:19:00 Test Item Value Reference Range Interpretation Comments GLUCOSE BEDSIDE (test 220 MG/DL 70-110 H [facility] med by certified code = GLUBED) 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 [facility] COMPREHENSIVE METABOLIC [id number] 07:53:00 Test Item Value Reference Range Interpretation [...] the recommended for bhumika for GFRby the [facility] Kidney Foundati on for Adults.The GFR [...] 20-125 H TOTAL (test code = ALKP) [id number] 07:53:00 Test Item Value Reference Range Interpretation Comments PHOSPHOROUS (test code = PHOS) 6.8 MG/DL 2.5-4.9 H [id number] 07:53:00 Test Item Value Reference Range Interpretation Comments MAGNESIUM (test code = MAG) 2.24 mg/dL 1.80-2.40 GLUCOSE [id number] 06:28:00 Test Item Value Reference Range Interpretation Comments GLUCOSE BEDSIDE (test 214 MG/DL 70-110 H [facility] med by certified code = GLUBED) 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 [facility] CBC W/AUTO [id number] 05:40:00 Test Item Value Reference Range Interpretation [...] To be done morning of Heart CathRBC [id number] 05:40:00 Test Item Value Reference Range Interpretation Comments ANISOCYTOSIS (test code = ANISO) SLIGHT MACROCYTOSIS (test code = MACR) FEW COMMENTS: To be done morning of Heart Cath- XR FOOT 3 + V [id number] 00:00:00 [facility] : 1955 Sex: F FAX: Delmy Howell [phone] [place]: St: ADM FAX: Sybil Marques MD [phone] FAX:Jim Mazariegos MD [phone] Name: JENN MOTTA [facility] : 1955 Age/S: 67/F [address] [place] [address] Unit #: [id number] Loc: G.4421 [place] [address] Phys: Sybil Byers MD Acct: [id number] Dis Date: Status: ADM IN PHONE #: [phone] Exam Date: 06/25/2022 1610 FAX #: [phone] Reason: L foot ulcers EXAMS: CPT CODE: [id number] XR FOOT 3 + [place] [address] PROCEDURE INFORMATION: Exam: XR Left Foot Exam [...] MD Technologist: RT Gabbi(R) Trnscrd Date/Time/By: 06/26/2022 (841) : By: [email or web address] Orig Print D/T: S: 06/26/2022 (841) PAGE 1 Signed Report GLUCOSE [id number] 19:44:00 Test Item Value Reference Range Interpretation Comments GLUCOSE BEDSIDE (test 198 MG/DL 70-110 H Perfor med by certified code = GLUBED) 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 [facility] GLUCOSE [id number] 16:13:00 Test Item Value Reference Range Interpretation Comments GLUCOSE BEDSIDE (test 189 MG/DL 70-110 H Perfor med by certified code = GLUBED) 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 [facility] GLUCOSE [id number] 11:12:00 Test Item Value Reference Range Interpretation Comments GLUCOSE BEDSIDE (test 186 MG/DL 70-110 H Perfor med by certified code = GLUBED) 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 [facility] CBC W/AUTO [id number] 10:49:00 Test Item Value Reference Range Interpretation [...] MDIFF) COMMENTS: Daily while on HeparinCOMPREHENSIVE METABOLIC [id number] 07:37:00 Test Item Value Reference Range Interpretation [...] the recommended for bhumika for GFRby the [facility] Kidney Foundati on for Adults.The GFR [...] H TOTAL (test code = ALKP) GLUCOSE [id number] 05:53:00 Test Item Value Reference Range Interpretation Comments GLUCOSE BEDSIDE (test 159 MG/DL 70-110 H Perfor med by certified code = GLUBED) 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 [facility] GLUCOSE [id number] 19:09:00 Test Item Value Reference Range Interpretation Comments GLUCOSE BEDSIDE (test 171 MG/DL 70-110 H Perfor med by certified code = GLUBED) 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 [facility] GLUCOSE [id number] 15:56:00 Test Item Value Reference Range Interpretation Comments GLUCOSE BEDSIDE (test 159 MG/DL 70-110 H Perfor med by certified code = GLUBED) 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 [facility] GLUCOSE [id number] 12:56:00 Test Item Value Reference Range Interpretation Comments GLUCOSE BEDSIDE (test 110 MG/DL 70-110 N Perfor med by certified code = GLUBED) 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 [facility] ACUTE HEPATITIS [id number] 12:08:00 Test Item Value Reference Range Interpretation Comments AB HEPATITIS A IGM (test NON REACTIVE INDEX NON REACT. code = HAVMAB) AG HEPATITIS B SURFACE NON REACTIVE INDEX NonReactive (test code = HBSAG) AB HEPATITIS B CORE IGM NON REACTIVE INDEX NON REACT. (test code = HBCMAB) AB HEPATITIS C (test code NON REACTIVE INDEX NON REACT. = HCVAB) AB HEPATITIS B [id number] 12:08:00 Test Item Value Reference Range Interpretation Comments AB HEPATITIS B 11.7 mIU/mL See_Comment Verified by repeat SURFACE (test code = analysi s Status of HBSAB) Immunity Anti-H Bs Level --- I nconsis tent with Immun ity 0.0 - 9.9Consistent with Immunity >9.9Pe rformed At: [facility] [id number] [place], [place] [id number] Kota Loera MD Ph:[phone] [Automated mess age] The system [employer] generated this result transmitted ref erence range: Immunity >9.9. The reference r chikis was not used to interpret this result as normal/abnor mal. BASIC METABOLIC [id number] 08:08:00 Test Item Value Reference Range Interpretation [...] code = 9.9 mg/dL 8.0-10.5 N CA) [id number] 08:08:00 Test Item Value Reference Range Interpretation Comments PHOSPHOROUS (test code = PHOS) 7.1 MG/DL 2.5-4.9 H [id number] 08:08:00 Test Item Value Reference Range Interpretation Comments MAGNESIUM (test code = MAG) 2.64 mg/dL 1.80-2.40 H CBC W/AUTO [id number] 07:09:00 Test Item Value Reference Range Interpretation [...] = MDIFF) COMMENTS: Daily while on HeparinGLUCOSE [id number] 05:45:00 Test Item Value Reference Range Interpretation Comments GLUCOSE BEDSIDE (test 190 MG/DL 70-110 H Perfor med by certified code = GLUBED) 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 [facility] GLUCOSE [id number] 19:34:00 Test Item Value Reference Range Interpretation Comments GLUCOSE BEDSIDE (test 159 MG/DL 70-110 H Perfor med by certified code = GLUBED) 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 [facility] GLUCOSE [id number] 17:04:00 Test Item Value Reference Range Interpretation Comments GLUCOSE BEDSIDE (test 167 MG/DL 70-110 H Perfor med by certified code = GLUBED) 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 [facility] UA RFLX MICR CULT IF [id number] 16:38:00 Test Item Value Reference Range Interpretation [...] for culture: Gross HematuriaSpecimen Description: CLEAN CATCHGLUCOSE [id number] 12:14:00 Test Item Value Reference Range Interpretation Comments GLUCOSE BEDSIDE (test 147 MG/DL 70-110 H Perfor med by certified code = GLUBED) 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 [facility] THROMBOPLASTIN TIME [id number] 11:46:00 Test Item Value Reference Range Interpretation Comments THROMBOPLASTIN TIME 72.0 Seconds 25.0-39.5 H Therape utic Range: PARTIAL (test code = 50.4 - 88.3 Seconds PTT) Effective 10/22/2018 GLUCOSE [id number] 06:01:00 Test Item Value Reference Range Interpretation Comments GLUCOSE BEDSIDE (test 246 MG/DL 70-110 H Perfor med by certified code = GLUBED) 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 [facility] THROMBOPLASTIN TIME [id number] 05:17:00 Test Item Value Reference Range Interpretation Comments THROMBOPLASTIN TIME 53.5 Seconds 25.0-39.5 H Therape utic Range: PARTIAL (test code = 50.4 - 88.3 Seconds PTT) Effective 10/22/2018 CBC W/AUTO [id number] 04:16:00 Test Item Value Reference Range Interpretation [...] Daily while on Heparin- CT CHEST W/O [id number] 00:00:00 [facility] 1955 Sex: F Name: JENN MOTTA [facility] [place] : 1955 Age/S: 67 / F [address] [place], [place] [address] Unit #: [id number] Loc: [place] [address] Phys: Aleja Funk Acct: [id number] Dis Date: Status: ADM IN PHONE #: [phone] Exam Date: 06/22/2022 0955 FAX #: [phone] Reason: Dyspnea, CAD EXAMS: CPT CODE: [id number] CT CHEST W/O CONTRAST 79789 PROCEDURE INFORMATION: Exam: CT Chest Without Contrast; [...] nodes: Unremarkable. No enlarged lymph nodes. Vasculature: Diffusevascular calcifications. Gallbladder and bile ducts: There has [...] 1 Signed Report (CONTINUED) Name: JENN MOTTA [facility] : 1955 Age/S: 67 / F [address] [place] [address] Unit #: [id number] Loc: [place] [address] Phys: Aleja Funk Acct: [id number] Dis Date: Status: ADM IN PHONE #: [phone] Exam Date: 06/22/2022954 FAX #: [phone] Reason: Dyspnea, CAD EXAMS: CPT CODE: [id number] CT CHEST W/O CONTRAST 73124 (Continued) 4. There is a small pericardial effusion, slightly increased in size compared to prior study. 5. There is a small amount ofascites in the visualized abdomen. at 0904 Reported and signed by: Jim Uriostegui M.D. 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 [facility] THROMBOPLASTIN TIME [id number] 21:11:00 Test Item Value Reference Range Interpretation Comments THROMBOPLASTIN TIME 51.2 Seconds 25.0-39.5 H Therape utic Range: PARTIAL (test code = 50.4 - 88.3 Seconds PTT) Effective 10/22/2018 GLUCOSE [id number] 18:42:00 Test Item Value Reference Range Interpretation Comments GLUCOSE BEDSIDE (test 125 MG/DL 70-110 H Perfor med by certified code = GLUBED) 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 [facility] THROMBOPLASTIN TIME [id number] 13:02:00 Test Item Value Reference Range Interpretation Comments THROMBOPLASTIN TIME 40.0 Seconds 25.0-39.5 H Therape utic Range: PARTIAL (test code = 50.4 - 88.3 Seconds PTT) Effective 10/22/2018 PTH INTACT [id number] 12:41:00 Test Item Value Reference Range Interpretation Comments PARATHYROID HORMONE INTACT (test 661.2 pg/mL 14.0-72.0 H code = PARAI) B-TYPE NATRIURETIC [id number] 12:23:00 Test Item Value Reference Range Interpretation Comments B-TYPE NATRIURETIC PEPTIDE (test 557.0 PG/ML 0-100 H code = BNP) PROTHROMBIN [id number] 12:06:00 Test Item Value Reference Range Interpretation [...] (to prevent recurrent infar ct). BASIC METABOLIC [id number] 12:04:00 Test Item Value Reference Range Interpretation [...] the recommended for bhumika for [facility]by the [facility] for Adults.The GFR will not calculate if th e sex is unknown or if thepatient's ag e is <18 years. 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 [facility] THROMBOPLASTIN TIME [id number] 01:28:00 Test Item Value Reference Range Interpretation Comments THROMBOPLASTIN TIME 30.3 Seconds 25.0-39.5 N Therape utic Range: PARTIAL (test code = 50.4 - 88.3 Seconds PTT) Effective 10/22/2018 COMMENTS: DRAW PTT 6 HOURS AFTER INITIATION OF HEPARIN- DUP VEIN [id number] 00:00[facility]00[facility] : 1955 Sex: F Name: JENN MOTTA [facility] Shoshana Hernandez : 1955 Age/S: 67 / F [address] [place] [address] Unit #: [id number] Loc: [place] [address] Phys: Aleja Funk Acct: [id number] Dis Date: Status: ADM IN PHONE #: [phone] Exam Date: 06/22/2022 1510 FAX #: [phone] Reason: Vein mapping for CABGEXAMS: CPT CODE: [id number] DUP VEIN YEIMI 49893 PROCEDURE INFORMATION: Exam: US Duplex Lower Extremity [...] Dhillon MD; Aleja OROZCO Technologist: Monty Thomas Trnctb Date/Time: 06/22/2022 (1729) DanieAB53 Orig Print D/T: S: 06/22/2022 (1729) Probe: PAGE 1 Signed Report- DOP ART SGL LEVEL [id number] 00:00:00 [facility] : 1955 Sex: F Name: JENN MOTTA [facility] : 1955 Age/S: 67 / F [address] [place] [address] Unit #: [id number] Loc: [place] [address] Phys: Aleja Funk Acct: [id number] Dis Date: Status: ADM IN PHONE #: [phone] Exam Date: 06/22/2022 1502 FAX #: [phone] Reason: PVD EXAMS: CPT CODE: [id number] DOP ART SGL LEVEL YEIMI 46533 PROCEDURE INFORMATION: Exam: US Duplex Lower Extremity [...] 1 Signed Report (CONTINUED) Name: JENN MOTTA [facility] : 1955 Age/S: 67 / F [address] [place] [address] Unit #: [id number] Loc: [place] [address] Phys: Aleja Funk Acct: [id number] Date: Status: ADM IN PHONE #: [phone] Exam Date: 06/22/2022 1501 FAX #: [phone] Reason: PVD EXAMS: CPT CODE: [id number] DOP ART SGL LEVEL YEIMI 87395 (Continued) CC: Delmy Ashton MD; Jim Dhillon MD; Aleja OROZCO Technologist: Monty Thomas Trnctb Date/Time: 06/22/2022 (1654) DanieMR72 Orig Print D/T: S: 06/22/2022 (1654) Probe: PAGE 2 Signed Report- DUP EXTRACRANIAL [id number] 00:00:00 [facility] SHOSHA[facility] HERNANDEZName: JENN MOTTA : 1955 Sex: F Name: JENN MOTTA [facility] Shoshana Hernandez : 1955 Age/S: 67 / F [address] Unit #: [id number] Loc: [place] [address] Phys: Aleja Funk Acct: [id number] Dis Date: Status: ADM IN PHONE #: [phone] Exam Date: 06/22/2022 1509 FAX #: [phone] Reason: CABG workup EXAMS: CPTCODE: [id number] DUP EXTRACRANIAL YEIMI 03541 PROCEDURE INFORMATION: Exam: US Duplex Bilateral Extracranial [...] Reported and signed by: Paramjit Villar M.D. P AGE 2 Signed Report (CONTINUED) Name: JENN MOTTA [facility] : 1955 Age/S: 67 / F[address] Unit #: [id number] Loc: [place] [address] Phys: Aleja Funk Acct: [id number] Dis Date: Status: ADM IN PHONE #: [phone] Exam Date: 06/22/2022 1509 FAX #: [phone] Reason: CABG workup EXAMS: CPT CODE: [id number] DUP EXTRACRANIAL YEIMI 50830 (Continued) CC: Delmy Ashton MD; Jim Dhillon MD; Aleja OROZCO Technologist: Monty Thomas Trnscb Date/Time: 06/22/2022 (1806) t.SDR.TDO Orig Print D/T: S: 06/22/2022 (1807) Probe: PAGE 2 Signed ReportGLUCOSE BEDSIDE 2022-06-21 20:43:00 Test Item Value Reference Range Interpretation Comments GLUCOSE BEDSIDE (test 226 MG/DL 70-110 H Perfor med by certified code = GLUBED) 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 Kidney Foundati on for Adults.The GFR [...] ALKP) COMMENTS: If not already done in ERP [id number] 16:16:00 Test Item Value Reference Range Interpretation Comments POC glucose (test 89 mg/dL 65-99 Religious Ritual Slaughterer N desire: Rubin code = 80713-5) [employer] I D: [id number] able: RN Notified [facility] [id number] 16:16:00 Test Item Value Reference Range Interpretation Comments POC glucose (test 89 mg/dL 65-99 Religious Ritual Slaughterer N desire: Rubin code = 18759-3) [employer] I D: [id number] able: RN Notified [facility] [id number] 16:16:00 Test Item Value Reference Range Interpretation Comments POC glucose (test 89 mg/dL 65-99 Religious Ritual Slaughterer N desire: Rubin code = 36001-0) [employer] I D: [id number] able: RN Notified [facility] [id number] 16:16:00 Test Item Value Reference Range Interpretation Comments POC glucose (test 89 mg/dL 65-99 Religious Ritual Slaughterer N desire: Rubin code = 37815-0) [employer] I D: [id number] able: RN Notified [facility] [id number] 16:16:00 Test Item Value Reference Range Interpretation Comments POC glucose (test 89 mg/dL 65-99 Religious Ritual Slaughterer N desire: Rubin code = 54932-9) [employer] I D: [id number] able: RN Notified [facility]2022-10-19 16:16:00 Test Item Value Reference Range Interpretation Comments POC glucose (test 89 mg/dL 65-99 Religious Ritual Slaughterer N desire: Rubin code = 93223-1) [employer] I D: [id number] able: RN Notified [facility] [id number] 16:16:00 Test Item Value Reference Range Interpretation Comments POC glucose (test 89 mg/dL 65-99 Religious Ritual Slaughterer N desire: Rubin code = 09869-4) EricDevice I D: [id number] able: RN Notified [facility] [id number] 16:16:00 Test Item Value Reference Range Interpretation Comments POC glucose (test 89 mg/dL 65-99 [employer] N desire: Rubin code = 66097-0) EricDevice I D: [id number] able: RN Notified [facility] [id number] 13:03:01 Test Item Value Reference Range Interpretation Comments POC sodium (test code = 140 mmol/L 580-263 9197-0) POC potassium (test code 3.9 mmol/L 3.5-5.0 = 6298-4) POC glucose (test code = 78 mg/dL 65-99 2339-0) POC creatinine (test 4.6 mg/dl 0.5-0.9 H Operato r Name: code = 38851-8) Marko kyle ID: [id number] POC hemoglobin (test 8.5 g/dL 12.0-16.0 L code = 718-7) POC hematocrit (test 25 % 37-47 L code = 4544-3) Lab Interpretation (test Abnormal code = 31128-5) [facility]2022-10-19 13:03:01 Test Item Value Reference Range Interpretation Comments POC sodium (test code = 140 mmol/L 395-075 0087-0) POC potassium (test code 3.9 mmol/L 3.5-5.0 = 6298-4) POC glucose (test code = 78 mg/dL 65-99 2339-0) POC creatinine (test 4.6 mg/dl 0.5-0.9 H Operato r Name: code = 84791-3) Marko kyle ID: [id number] POC hemoglobin (test 8.5 g/dL 12.0-16.0 L code = 718-7) POC hematocrit (test 25 % 37-47 L code = 4544-3) Lab Interpretation (test Abnormal code = 29677-7) [facility]2022-10-19 13:03:01 Test Item Value Reference Range Interpretation Comments POC sodium (test code = 140 mmol/L 337-628 8813-0) POC potassium (test code 3.9 mmol/L 3.5-5.0 = 6298-4) POC glucose (test code = 78 mg/dL 65-99 2339-0) POC creatinine (test 4.6 mg/dl 0.5-0.9 H Operato r Name: code = 43354-3) Marko kyle ID: [id number] POC hemoglobin (test 8.5 g/dL 12.0-16.0 L code = 718-7) POC hematocrit (test 25 % 37-47 L code = 4544-3) Lab Interpretation (test Abnormal code = 70873-0) [facility]2022-10-19 13:03:01 Test Item Value Reference Range Interpretation Comments POC sodium (test code = 140 mmol/L 206-304 6313-0) POC potassium (test code 3.9 mmol/L 3.5-5.0 = 6298-4) POC glucose (test code = 78 mg/dL 65-99 2339-0) POC creatinine (test 4.6 mg/dl 0.5-0.9 H Operato r Name: code = 77259-9) Marko kyle ID: [id number] POC hemoglobin (test 8.5 g/dL 12.0-16.0 L code = 718-7) POC hematocrit (test 25 % 37-47 L code = 4544-3) Lab Interpretation (test Abnormal code = 98944-8) [facility]2022-10-19 13:03:01 Test Item Value Reference Range Interpretation Comments POC sodium (test code = 140 mmol/L 048-171 0762-0) POC potassium (test code 3.9 mmol/L 3.5-5.0 = 6298-4) POC glucose (test code = 78 mg/dL 65-99 2339-0) POC creatinine (test 4.6 mg/dl 0.5-0.9 H Operato r Name: code = 92416-2) Marko kyle ID: [id number] POC hemoglobin (test 8.5 g/dL 12.0-16.0 L code = 718-7) POC hematocrit (test 25 % 37-47 L code = 4544-3) Lab Interpretation (test Abnormal code = 01539-5) [facility]2022-10-19 13:03:01 Test Item Value Reference Range Interpretation Comments POC sodium (test code = 140 mmol/L 825-330 8963-0) POC potassium (test code 3.9 mmol/L 3.5-5.0 = 6298-4) POC glucose (test code = 78 mg/dL 65-99 2339-0) POC creatinine (test 4.6 mg/dl 0.5-0.9 H Operato r Name: code = 11676-8) Marko kyle ID: [id number] POC hemoglobin (test 8.5 g/dL 12.0-16.0 L code = 718-7) POC hematocrit (test 25 % 37-47 L code = 4544-3) Lab Interpretation (test Abnormal code = 73727-5) [facility] [id number] 13:03:01 Test Item Value Reference Range Interpretation Comments POC sodium (test code = 140 mmol/L 126-775 2765-0) POC potassium (test code 3.9 mmol/L 3.5-5.0 = 6298-4) POC glucose (test code = 78 mg/dL 65-99 2339-0) POC creatinine (test 4.6 mg/dl 0.5-0.9 H Operato r Name: code = 63568-3) Marko kyle ID: [id number] POC hemoglobin (test 8.5 g/dL 12.0-16.0 L code = 718-7) POC hematocrit (test 25 % 37-47 L code = 4544-3) Lab Interpretation (test Abnormal code = 26417-7) [facility] [id number] 13:03:01 Test Item Value Reference Range Interpretation Comments POC sodium (test code = 140 mmol/L 112-689 1835-0) POC potassium (test code 3.9 mmol/L 3.5-5.0 = 6298-4) POC glucose (test code = 78 mg/dL 65-99 2339-0) POC creatinine (test 4.6 mg/dl 0.5-0.9 H Operato r Name: code = 82444-4) Marko kyle ID: [id number] POC hemoglobin (test 8.5 g/dL 12.0-16.0 L code = 718-7) POC hematocrit (test 25 % 37-47 L code = 4544-3) Lab Interpretation (test Abnormal code = 58625-9) [facility] [id number] 13:03:00 Test Item Value Reference Range Interpretation Comments Estimated GFR (test 9 mL/min/1.73 m2 A Caterg ory Units code = 13140-2) Interpretati onG1 >=90 Normal or highG 2 60-89 Mildly decrease dG3a 45-59 Mildly to moderately decr ieprvX2d 30-44 Moderatel y to severely decrea sedG4 15-29 Severely decreasedG5 <15 Kidney failureThe eGFR was calculated usin g the Chronic Kidney Disease Epidemiology Collaboration ( CKD-EPI) equation. Interpretation is based on recommendati ons of the [facility] Disease Outcome s Quality Initiat hermes (NK-KDOQI) pub lished in 2013. Lab Interpretation Abnormal (test code = 94295-8) [facility] [id number] 13:03:00 Test Item Value Reference Range Interpretation Comments Estimated GFR (test mL/min/1.73 m2 A Caterg ory Units code = 41397-3) Interpretati onG1 >=90 Normal or highG 2 60-89 Mildly decrease dG3a 45-59 Mildly to moderately decr bjfpgU9b 30-44 Moderatel y to severely decrea sedG4 15-29 Severely decreasedG5 <15 Kidney failureThe eGFR was calculated usin g the Chronic Kidney Disease Epidemiology Collaboration ( CKD-EPI) equation. Interpretation is based on recommendati ons of the [facility] Disease Outcome s Quality Initiat hermes ([facility]-KDOQI) pub lished in 2013. Lab Interpretation Abnormal (test code = 01608-3) [facility] [id number] 13:03:00 Test Item Value Reference Range Interpretation Comments Estimated GFR (test 9 mL/min/1.73 m2 A Caterg ory Units code = 02909-0) Interpretati onG1 >=90 Normal or highG 2 60-89 Mildly decrease dG3a 45-59 Mildly to moderately decr pgutyC9n 30-44 Moderatel y to severely decrea sedG4 15-29 Severely decreasedG5 <15 Kidney failureThe eGFR was calculated usin g the Chronic Kidney Disease Epidemiology Collaboration ( CKD-EPI) equation. Interpretation is based on recommendati ons of the [facility] Disease Outcome s Quality Initiat hermes ([facility]-KDOQI) pub lished in 2013. Lab Interpretation Abnormal (test code = 74738-9) [facility] [id number] 13:03:00 Test Item Value Reference Range Interpretation Comments Estimated GFR (test 9 mL/min/1.73 m2 A Caterg ory Units code = 30557-5) Interpretati onG1 >=90 Normal or highG 2 60-89 Mildly decrease dG3a 45-59 Mildly to moderately decr xpkvbG8r 30-44 Moderatel y to severely decrea sedG4 15-29 Severely decreasedG5 <15 Kidney failureThe eGFR was calculated usin g the Chronic Kidney Disease Epidemiology Collaboration ( CKD-EPI) equation. Interpretation is based on recommendati ons of the [facility] Disease Outcome s Quality Initiat hermes (NK-KDOQI) pub lished in 2013. Lab Interpretation Abnormal (test code = 95552-7) [facility] [id number] 13:03:00 Test Item Value Reference Range Interpretation Comments Estimated GFR (test 9 mL/min/1.73 m2 A Caterg ory Units code = 74789-2) Interpretati onG1 >=90 Normal or highG 2 60-89 Mildly decrease dG3a 45-59 Mildly to moderately decr wjoqzF5d 30-44 Moderatel y to severely decrea sedG4 15-29 Severely decreasedG5 <15 Kidney failureThe eGFR was calculated usin g the Chronic Kidney Disease Epidemiology Collaboration ( CKD-EPI) equation. Interpretation is based on recommendati ons of the [facility] Disease Outcome s Quality Initiat hermes ([facility]-KDOQI) pub lished in 2013. Lab Interpretation Abnormal (test code = 34198-6) [facility] [id number] 13:03:00 Test Item Value Reference Range Interpretation Comments Estimated GFR (test 9 mL/min/1.73 m2 A Caterg ory Units code = 41389-6) Interpretati onG1 >=90 Normal or highG 2 60-89 Mildly decrease dG3a 45-59 Mildly to moderately decr eddhvW6d 30-44 Moderatel y to severely decrea sedG4 15-29 Severely decreasedG5 <15 Kidney failureThe eGFR was calculated usin g the Chronic Kidney Disease Epidemiology Collaboration ( CKD-EPI) equation. Interpretation is based on recommendati ons of the [facility] Disease Outcome s Quality Initiat hermes (NK-KDOQI) pub lished in 2013. Lab Interpretation Abnormal (test code = 99588-7) [facility] [id number] 13:03:00 Test Item Value Reference Range Interpretation Comments Estimated GFR (test 9 mL/min/1.73 m2 A Caterg ory Units code = 07895-6) Interpretati onG1 >=90 Normal or highG 2 60-89 Mildly decrease dG3a 45-59 Mildly to moderately decr xcmcgR9n 30-44 Moderatel y to severely decrea sedG4 15-29 Severely decreasedG5 <15 Kidney failureThe eGFR was calculated usin g the Chronic Kidney Disease Epidemiology Collaboration ( CKD-EPI) equation. Interpretation is based on recommendati ons of the [facility] Disease Outcome s Quality Initiat hermes (NK-KDOQI) pub lished in 2013. Lab Interpretation Abnormal (test code = 85303-2) [facility] [id number] 13:03:00 Test Item Value Reference Range Interpretation Comments Estimated GFR (test 9 mL/min/1.73 m2 A [facility] Units code = 28168-3) Interpretati onG1 >=90 Normal or highG 2 60-89 Mildly decrease dG3a 45-59 Mildly to moderately decr mbinfU6y 30-44 Moderatel y to severely decrea sedG4 15-29 Severely decreasedG5 <15 Kidney failureThe eGFR was calculated usin g the Chronic Kidney Disease Epidemiology Collaboration ( CKD-EPI) equation. Interpretation is based on recommendati ons of the [facility] Disease Outcome s Quality Initiat hermes (NK-KDOQI) pub lished in 2013. Lab Interpretation Abnormal (test code = 78004-7) [facility] [id number] 19:03:18 Test Item Value Reference Range Interpretation Comments Case number (test code = [id number]) Surgical pathology See link below for report (test code = PDF Lab Report 2255) Result status (test code This is Final Report = [id number]) for [id number] [facility] [id number] 19:03:18 Test Item Value Reference Range Interpretation Comments Case number (test code = [id number]) Surgical pathology See link below for report (test code = PDF Lab Report 2255) Result status (test code This is Final Report = [id number]) [facility] [id number] [facility] [id number] 19:03:18 Test Item Value Reference Range Interpretation Comments Case number (test code = [id number]) Surgical pathology See link below for report (test code = PDF Lab Report 2255) Result status (test code This is Final Report = 5343682) for [id number] [facility] pathology [id number] 19:03:18 Test Item Value Reference Range Interpretation Comments Case number (test code = [id number]) Surgical pathology See link below for report (test code = PDF Lab Report 2255) Result status (test code This is Final Report = [id number]) for [id number] [facility] pathology [id number] 19:03:18 Test Item Value Reference Range Interpretation Comments Case number (test code = [id number]) Surgical pathology See link below for report (test code = PDF Lab Report 2255) Result status (test code This is Final Report = [id number]) for [id number] [facility] pathology [id number] 19:03:18 Test Item Value Reference Range Interpretation Comments Case number (test code = [id number]) Surgical pathology See link below for report (test code = PDF Lab Report 2255) Result status (test code This is Final Report = [id number]) for [id number] [facility] pathology [id number] 19:03:18 Test Item Value Reference Range Interpretation Comments Case number (test code = [id number]) Surgical pathology See link below for report (test code = PDF Lab Report 2255) Result status (test code This is Final Report = 5870290) for [id number] [facility] pathology [id number] 19:03:18 Test Item Value Reference Range Interpretation Comments Case number (test code = [id number]) Surgical pathology See link below for report (test code = PDF Lab Report 2255) Result status (test code This is Final Report = [id number]) [facility] [id number] [facility] [id number] 10:49:53 Test Item Value Reference Range Interpretation Comments Ventricular rate (test code = 253) Atrial rate (test code = 255) MO interval (test code = 266) QRSD interval [...] inversion now evident in Inferior leads- [facility] Pre/Post [id number] 10:49:53 Test Item Value Reference Range Interpretation Comments Ventricular rate (test 101 code = 253) Atrial rate (test code 101 = 255) MO interval (test code 160 = 266) QRSD [...] inversion now evident in Inferior leads- [facility] Pre/Post [id number] 10:49:53 Test Item Value Reference Range Interpretation Comments Ventricular rate (test 101 code = 253) Atrial rate (test code 101 = 255) MO interval (test code 160 = 266) QRSD [...] inversion now evident in Inferior leads- [facility] Pre/Post [id number] 10:49:53 Test Item Value Reference Range Interpretation Comments Ventricular rate (test 101 code = 253) Atrial rate (test code 101 = 255) MO interval (test code 160 = 266) QRSD [...] inversion now evident in Inferior leads- [facility] Pre/Post [id number] 10:49:53 Test Item Value Reference Range Interpretation Comments Ventricular rate (test 101 code = 253) Atrial rate (test code 101 = 255) MO interval (test code 160 = 266) QRSD [...] inversion now evident in Inferior leads- [facility] Pre/Post [id number] 10:49:53 Test Item Value Reference Range Interpretation Comments Ventricular rate (test 101 code = 253) Atrial rate (test code 101 = 255) MO interval (test code 160 = 266) QRSD [...] inversion now evident in Inferior leads- [facility] Pre/Post [id number] 10:49:53 Test Item Value Reference Range Interpretation Comments Ventricular rate (test 101 code = 253) Atrial rate (test code 101 = 255) MO interval (test code 160 = 266) QRSD [...] inversion now evident in Inferior leads- [facility] Pre/Post [id number] 10:49:53 Test Item Value Reference Range Interpretation Comments Ventricular rate (test 101 code = 253) Atrial rate (test code 101 = 255) MO interval (test code 160 = 266) QRSD [...] wave inversion now evident in Inferior leads- [facility] GLUCOSE (AUTOMATED)2020-10-14 12:45:50 Test Item Value Reference Range Interpretation Comments POCT GLU (test code = 8229478390) 255 mg/dL 70-110 H Lab Interpretation (test code = Abnormal 44567-6) [facility] [id number] 12:35:00 Test Item Value Reference Range Interpretation Comments POCT Glu (age>30days) (test code = 255 mg/dL 70-110 A 3342) Lab Interpretation (test code = Abnormal 41780-0) [facility]-CoV-2 (COVID-19) RNA [Presence] in Respiratory specimen by JUANY with probe [id number] 01:15:19 Test Item Value Reference Range Interpretation Comments SARS-CoV-2 (COVID-19) RNA Not detected Not-Detected [Presence] in Respiratory specimen by JUANY with probe detection (test code = 84892-5) [facility] [id number] 12:03:00 Test Item Value Reference Range Interpretation Comments POCT Glu (age>30days) (test code = 142 mg/dL 70-110 A 3342) Lab Interpretation (test code = Abnormal 38289-5) [facility]-CoV-[facility] (COVID-19) RNA [Presence] in Respiratory specimen by JUANY with probe [id number] 18:03:16 Test Item Value Reference Range Interpretation Comments SARS-CoV-2 (COVID-19) RNA Not detected Not-Detected [Presence] in Respiratory specimen by JUANY with probe detection (test code = 89723-8) [facility]
[2022-10-12 20:15] LABS: Absolute Lymphocytes (CBC) 0.6 K/uL (0.7-4.9); Hematocrit 27.4 % (36.0-45.0); MCV 86.9 fL (80-100); MPV 6.3 fL (7.6-11.3); RBC Red Blood Cell Count 3.15 M/uL (3.86-4.86)
[2022-10-12 20:33] LABS: AST/SGOT 16 U/L (15-37); Albumin 2.3 g/dL (3.4-5.0); Alkaline Phosphatase 144 U/L (45-117); BUN Blood Urea Nitrogen 18 mg/dL (7-18); Bicarbonate 27 mEq/L (21-32); Bilirubin Total 0.4 mg/dL (0.2-1.0); Glomerular Filtration Rate 18 ml/min (=/>90); Glucose Level 62 mg/dL (74-106); Protein, Total 6.5 g/dL (6.4-8.2); Sodium Level 137 mEq/L (136-145)
[2022-10-12 20:47] LABS: ALT/SGPT < 10 U/L (13-56)
[2022-10-12 20:48] LABS: Potassium 2.6 mEq/L (3.5-5.1)
[2022-10-12 20:50] LABS: Blood Morphology Comment NOTED (NOT SEEN); Platelet Estimate ADEQ
[2022-10-12] MEDS ORDERED: POTASSIUM CL SA 10 MEQ TAB PO ONE (21:21)
--- NOTE | 2022-10-12 22:20 | RAD REPORT ---
EXAM DESCRIPTION: CT - Head Brain Wo Cont - 10/12/2022 10:09 pm CLINICAL HISTORY: Alteration of awareness/confusion COMPARISON: September 28, 2022 TECHNIQUE: Computed axial tomography of the head was obtained. IV contrast was not requested. All CT scans are performed using dose optimization technique as appropriate and may include automated exposure control or mA/KV adjustment according to patient size. FINDINGS: An intracranial bleed is not seen The ventricles are normal in caliber No extra-axial fluid collection is noted. No significant hyperdensity within the brain. 4 millimeter calcification fourth ventricle unchanged Fluid within the sinuses/ mastoids is not seen. IMPRESSION: No acute intracranial abnormality is seen If patient's symptoms persist MRI of the brain would be recommended
--- NOTE | 2022-10-12 22:36 | RAD REPORT ---
EXAM DESCRIPTION: Mitul Single View10/12/2022 10:22 pm CLINICAL HISTORY: Hypertension/alteration consciousness COMPARISON: August 2022 FINDINGS: The lungs appear clear of acute infiltrate. The heart is mildly enlarged. Central venous catheter with its limbs in the right atrium. Chronic elevation right hemidiaphragm IMPRESSION: No acute abnormalities displayed
--- NOTE | 2022-10-12 23:38 | EDPHYS ---
Physician Documentation [facility] Name: Meseret Gallego Age: 67 yrs Sex: Female : 1955 Arrival Date: 10/12/2022 Time: 19:36 Bed 7 Private MD: ED Physician Humza Burciaga HPI: 10/12 23:32 This 67 yrs old Female presents to ER via EMS with complaints of Altered mental status, rt hyperglycemia, hypokalemia. 23:32 Initially, the patient was brought to the ED for suppose it hypokalemia, to 2.6 on labs rt today. The patient's sister states that the patient is confused, altered off of baseline, hallucinating with visual hallucinations that is not typical for her. States that she has been slurring her speech. Denies other acute complaints at this time. Symptoms are moderate severity, no other aggravating or alleviating factors.. Historical: - Allergies: 19:38 Codeine; jb4 19:38 Phenergan; jb4 19:38 Tape; jb4 - Home Meds: 19:38 Vitamin D Oral daily [Active]; clopidogrel 75 mg Oral tablet daily [Active]; BRILINTA jb4 90 mg Oral tab 1 tab 2 times per day [Active]; amlodipine 10 mg tab 1 tab once daily [Active]; atorvastatin 40 mg Oral tab 1 tab every day at bedtime [Active]; bupropion HCl 75 mg Oral tablet 2 times per day [Active]; Humalog U-100 Insulin 100 unit/mL Sub-Q crtg 50 unit twice a day [Active]; furosemide 80 mg Oral tab 1 tab once daily [Active]; lisinopril 5 mg Oral tab 1 tab once daily [Active]; Lantus U-100 Insulin 100 unit/mL Sub-Q crtg [Active]; midodrine 10 mg Oral tab 1 tab 3 times per day [Active]; metoprolol tartrate 12.5 mg Oral tab 2 times per day [Active]; Protonix 40 mg Oral TbEC 1 tab once daily [Active]; Insulin: Regular Sub-Q [Active]; Wellbutrin XL 150 mg Oral Tb24 1 tab once daily [Active]; sucralfate 1 gram Oral tab 1 tab 2 times per day [Active]; aspirin 81 mg Oral capsule daily [Active]; Synthroid 150 mcg Oral tablet 1 tab daily [Active]; - PMHx: 19:38 Diabetes - IDDM; Dialysis; Hypercholesterolemia; Hypertension; Hypothyroidism; jb4 Myocardial infarction; - PSHx: 19:38 2 heart stents; back; section; knee; neck; jb4 - Immunization history:: Adult Immunizations up to date. - Social history:: Smoking status: Patient denies any tobacco usage or history of. - Family history:: not pertinent. ROS: 23:32 Constitutional: Negative for fever, chills, and weight loss, Neck: Negative for injury, rt pain, and swelling, Cardiovascular: Negative for chest pain, palpitations, and edema, Respiratory: Negative for shortness of breath, cough, wheezing, and pleuritic chest pain, Abdomen/GI: Negative for abdominal pain, nausea, vomiting, diarrhea, and constipation, MS/Extremity: Negative for injury and deformity, Skin: Negative for injury, rash, and discoloration. 23:32 Neuro: Positive for altered mental status, Negative for dizziness. 23:32 Psych: Positive for auditory hallucinations, visual hallucinations. Exam: 23:32 Constitutional: This is a well developed, well nourished patient who is awake, alert, rt and in no acute distress. Head/Face: Normocephalic, atraumatic. Chest/axilla: Normal chest wall appearance and motion. Nontender with no deformity. No lesions are appreciated. Cardiovascular: Regular rate and rhythm with a normal S1 and S2. No gallops, murmurs, or rubs. Normal PMI, no JVD. No pulse deficits. Respiratory: Lungs have equal breath sounds bilaterally, clear to auscultation and percussion. No rales, rhonchi or wheezes noted. No increased work of breathing, no retractions or nasal flaring. Abdomen/GI: Soft, non-tender, with normal bowel sounds. No distension or tympany. No guarding or rebound. No evidence of tenderness throughout. MS/ Extremity: Pulses equal, no cyanosis. Neurovascular intact. Full, normal range of motion. 23:32 Neuro: Confused, speech intermittently does not make sense, moves all 4 extremities equally, no cranial nerve deficits. 23:32 ECG was reviewed by the Attending Physician. rt Vital Signs: 19:37 BP 124 / 70; Pulse 86; Resp 16; Temp 98.7(O); Pulse Ox 98% on R/A; Weight 64 kg (M); jb4 Pain 8/10; 21:14 BP 132 / 70; Pulse 87; Resp 17 S; Pulse Ox 98% on R/A; lg3 10/13 00:01 BP 142 / 73; Pulse 73; Resp 17 S; Pulse Ox 100% on R/A; lg3 10/12 19:37 Pain Scale: Adult jb4 MDM: 10/12 19:39 Patient medically screened. rt 23:32 Differential Diagnosis Sepsis, CVA, altered mental status, drug disturbances, ACS. Data rt reviewed: vital signs, nurses notes, lab test result(s), EKG, radiologic studies. Consideration of Admission/Observation Patient was admitted/placed on observation. Management of patient was discussed with the following: Hospitalist: Agrees to admit. I considered the following discharge prescriptions or medication management in the emergency department Medications were administered in the Emergency Department. See MAR. Historians other than the Patient: Family Member: Sister. Care significantly affected by the following chronic conditions: Diabetes, Chronic Kidney Disease. Counseling: I had a detailed discussion with the patient and/or guardian regarding: the historical points, exam findings, and any diagnostic results supporting the discharge/admit diagnosis, lab results, radiology results, the need for further work-up and treatment in the hospital. Response to treatment: There is no appreciated change of the patient's symptoms at this time. 10/12 19:40 Order name: CBC with Diff; Complete Time: 20:51 rt 10/12 19:40 Order name: CMP; Complete Time: 20:51 rt 10/12 19:40 Order name: Magnesium; Complete Time: 20:51 rt 10/12 19:54 Order name: Glucose, Ancillary Testing; Complete Time: 20:51 EDMS 10/12 20:18 Order name: Manual Differential; Complete Time: 20:51 EDMS 10/12 21:25 Order name: AMMONIA; Complete Time: 22:32 rt 10/12 21:25 Order name: Troponin High Sensitivity; Complete Time: 22:32 rt 10/12 23:24 Order name: COVID-19/FLU A+B sb4 10/13 00:24 Order name: Glucose, Ancillary Testing; Complete Time: 05:42 EDMS 10/13 04:41 Order name: Glucose, Ancillary Testing; Complete Time: 05:42 EDMS 10/13 05:12 Order name: CBC with Automated Diff; Complete Time: 05:42 EDMS 10/13 05:23 Order name: Basic Metabolic Panel; Complete Time: 05:42 EDMS 10/13 05:23 Order name: Phosphorus; Complete Time: 05:42 EDMS 10/13 05:23 Order name: Troponin High Sensitivity; Complete Time: 05:42 EDMS 10/13 05:23 Order name: Magnesium; Complete Time: 05:42 EDMS 10/13 08:15 Order name: Glucose, Ancillary Testing EDMS 10/13 12:47 Order name: Glucose, Ancillary Testing EDMS 10/12 21:25 Order name: CT Head Brain wo Cont; Complete Time: 22:32 rt 10/12 21:25 Order name: Chest Single View XRAY; Complete Time: 22:44 rt 10/12 19:40 Order name: EKG; Complete Time: 19:40 rt 10/12 19:40 Order name: EKG - Nurse/Tech; Complete Time: 19:43 rt EC:32 Rate is 87 beats/min. Rhythm is regular, Normal Sinus Rhythm with No ectopy, Right rt bundle branch block. UT interval is normal. QRS interval is normal at 524 msec. QT interval is prolonged at 524 msec. No Q waves. Interpreted by me. Administered Medications: 21:19 Drug: Potassium Chloride PO Liquid 40 mEq Route: PO; lg3 10/13 00:01 Follow up: Response: No adverse reaction lg3 00:31 Drug: Haloperidol IVP 5 mg Route: IVP; Site: right antecubital; lg3 01:40 Follow up: Response: No change in condition lg3 01:39 Drug: Geodon IM 10 mg Route: IM; Site: right deltoid; lg3 05:29 Follow up: Response: No adverse reaction; RASS: Drowsy (-1) lg3 01:53 Drug: D10 in Water IVP 250 ml Route: IVP; Site: right antecubital; lg3 05:29 Follow up: Response: No adverse reaction; No change in condition lg3 Point of Care Testing: Blood Glucose: 10/12 19:43 Blood Glucose: 65 mg/dL; jb4 Ranges: Critical Glucose Levels:Adult <50 mg/dl or >400 mg/dl <40 mg/dl or >180 mg/dl Disposition Summary: 10/12/22 23:37 Hospitalization Ordered Hospitalization Status: Observation rt Provider: Jim Dhillon rt Condition: Fair rt Problem: new rt Symptoms: are unchanged rt Bed/Room Type: Standard rt Location: Intensive Care Unit(10/13/22 13:18) dw Room Assignment: 2-(10/13/22 13:18) dw Diagnosis - Altered mental status, unspecified rt - Hypokalemia rt Forms: - Medication Reconciliation Form rt - SBAR form rt Signatures: Dispatcher [employer] EDMS Jennifer Tabares bd Naheed Ibarra RN RN Mary Lindquist RN RN dw Shelton Overton, RN RN jb4 Imelda Montemayor, RN RN [email or web address] Stephanie Schumacher PA-C PASanthosh [email or web address] Humza Burciaga MD MD rt Corrections: (The following items were deleted from the chart) 23:59 23:37 rt mw 10/13 00:32 10/12 23:37 Telemetry/MedSurg (observation) rt mw 10/13 00:32 10/12 23:59 427 mw mw 10/13 13:18 00:32 [facility] ER HOLD mw bd 13:18 00:32 ERHOLD- mw bd 13:18 13:18 Intensive Care Unit bd dw 13:18 13:18 2- bd dw
--- NOTE | 2022-10-12 23:38 | ER ---
Nurse's Notes [facility] Name: Meseret Gallego Age: 67 yrs Sex: Female : 1955 Arrival Date: 10/12/2022 Time: 19:36 Bed 7 Private MD: Diagnosis: Altered mental status, unspecified;Hypokalemia Presentation: 10/12 19:37 Chief complaint: EMS states: EMS was initially called for the pt having a potassium of jb4 2.6 and pt being A\T\Ox0. upon EMS arrival, pt was A\T\Ox4 with a bgl of 46. Gave 15g of oral glucose, pt bgl increased to 63. Coronavirus screen: At this time, the client does not indicate any symptoms associated with coronavirus-19. Ebola Screen: No symptoms or risks identified at this time. Risk Assessment: Do you want to hurt yourself or someone else? Patient reports no desire to harm self or others. Onset of symptoms was October 12, 2022. Transition of care: patient was received from another setting of care (long-term care facility), [facility]. 19:37 Method Of Arrival: EMS: [facility] jb4 19:37 Acuity: CHRISTOPHER 3 jb4 19:43 Initial Sepsis Screen: Does the patient meet any 2 criteria? No. Patient's initial jb4 sepsis screen is negative. Does the patient have a suspected source of infection? No. Patient's initial sepsis screen is negative. Historical: - Allergies: 19:38 Codeine; jb4 19:38 Phenergan; jb4 19:38 Tape; jb4 - Home Meds: 19:38 Vitamin D Oral daily [Active]; clopidogrel 75 mg Oral tablet daily [Active]; BRILINTA jb4 90 mg Oral tab 1 tab 2 times per day [Active]; amlodipine 10 mg tab 1 tab once daily [Active]; atorvastatin 40 mg Oral tab 1 tab every day at bedtime [Active]; bupropion HCl 75 mg Oral tablet 2 times per day [Active]; Humalog U-100 Insulin 100 unit/mL Sub-Q crtg 50 unit twice a day [Active]; furosemide 80 mg Oral tab 1 tab once daily [Active]; lisinopril 5 mg Oral tab 1 tab once daily [Active]; Lantus U-100 Insulin 100 unit/mL Sub-Q crtg [Active]; midodrine 10 mg Oral tab 1 tab 3 times per day [Active]; metoprolol tartrate 12.5 mg Oral tab 2 times per day [Active]; Protonix 40 mg Oral TbEC 1 tab once daily [Active]; Insulin: Regular Sub-Q [Active]; Wellbutrin XL 150 mg Oral Tb24 1 tab once daily [Active]; sucralfate 1 gram Oral tab 1 tab 2 times per day [Active]; aspirin 81 mg Oral capsule daily [Active]; Synthroid 150 mcg Oral tablet 1 tab daily [Active]; - PMHx: 19:38 Diabetes - IDDM; Dialysis; Hypercholesterolemia; Hypertension; Hypothyroidism; jb4 Myocardial infarction; - PSHx: 19:38 2 heart stents; back; section; knee; neck; jb4 - Immunization history:: Adult Immunizations up to date. - Social history:: Smoking status: Patient denies any tobacco usage or history of. - Family history:: not pertinent. Screenin:50 [facility] ED Fall Risk Assessment (Adult) History of falling in the last 3 months, lg3 including since admission No falls in past 3 months (0 pts). Abuse screen: Denies threats or abuse. Denies injuries from another. Nutritional screening: No deficits noted. Tuberculosis screening: No symptoms or risk factors identified. Assessment: 19:50 General: Appears in no apparent distress. comfortable, Behavior is calm, cooperative. lg3 Pain: Complains of pain in back Pain began years ago. Neuro: No deficits noted. Varela Agitation-Sedation Scale (RASS): 0 - Alert and Calm Level of Consciousness is awake, alert, obeys commands, Oriented to person, place, time, situation. Cardiovascular: No deficits noted. Denies chest pain, shortness of breath, Capillary refill < 3 seconds Clubbing of nail beds is absent Patient's skin is warm and dry. Respiratory: No deficits noted. Airway is patent Respiratory effort is even, unlabored, Respiratory pattern is regular, symmetrical. GI: No deficits noted. No signs and/or symptoms were reported involving the gastrointestinal system. Abdomen is round non-distended. : No deficits noted. No signs and/or symptoms were reported regarding the genitourinary system. EENT: No deficits noted. No signs and/or symptoms were reported regarding the EENT system. Derm: No deficits noted. No signs and/or symptoms reported regarding the dermatologic system. Skin is intact, is healthy with good turgor, Skin is dry, Skin is normal. Musculoskeletal: No deficits noted. No signs and/or symptoms reported regarding the musculoskeletal system. Circulation, motion, and sensation intact. Range of motion: intact in all extremities, Reports chronic back pain. 21:26 Reassessment: Patient appears in no apparent distress at this time. No changes from lg3 previously documented assessment. Patient and/or family updated on plan of care and expected duration. Pain level reassessed. Patient is alert, oriented x 3, equal unlabored respirations, skin warm/dry/pink. Patient denies pain at this time. 22:44 Reassessment: Patient appears in no apparent distress at this time. No changes from lg3 previously documented assessment. Patient and/or family updated on plan of care and expected duration. Pain level reassessed. Patient is alert, oriented x 3, equal unlabored respirations, skin warm/dry/pink. 10/13 00:02 Reassessment: Patient appears in no apparent distress at this time. No changes from lg3 previously documented assessment. Patient and/or family updated on plan of care and expected duration. Pain level reassessed. 00:11 General: pt refusing all interventions at this time. provider notified. . lg3 00:32 Neuro: Varela Agitation-Sedation Scale (RASS): +2 Agitated Oriented to person. lg3 01:40 General: Appears in no apparent distress. Behavior is anxious, uncooperative. Pain: lg3 Denies pain. Neuro: Varela Agitation-Sedation Scale (RASS): +3 Very Agitated Level of Consciousness is awake, confused, Oriented to person, place. Respiratory: No deficits noted. Airway is patent Respiratory effort is even, unlabored, Respiratory pattern is regular, symmetrical. Vital Signs: 10/12 19:37 BP 124 / 70; Pulse 86; Resp 16; Temp 98.7(O); Pulse Ox 98% on R/A; Weight 64 kg (M); jb4 Pain 8/10; 21:14 BP 132 / 70; Pulse 87; Resp 17 S; Pulse Ox 98% on R/A; lg3 10/13 00:01 BP 142 / 73; Pulse 73; Resp 17 S; Pulse Ox 100% on R/A; lg3 04/06 19:37 Pain Scale: Adult jb4 ED Course: 10/12 19:36 Patient arrived in ED. jb4 19:38 Triage completed. jb4 19:38 Arm band placed on left wrist. jb4 19:39 Humza Burciaga MD is Attending Physician. rt 19:50 Patient has correct armband on for positive identification. Placed in gown. Bed in low lg3 position. Call light in reach. Side rails up X 1. Client placed on continuous cardiac and pulse oximetry monitoring. NIBP monitoring applied. color television console monitor on. Door closed. Noise minimized. Warm blanket given. 20:48 Notified ED physician of a critical lab result(s). potassium 2.6. kl 22:10 CT Head Brain wo Cont In Process Unspecified. EDMS 22:24 Chest Single View XRAY In Process Unspecified. EDMS 23:20 Inserted saline lock: 22 gauge in right antecubital area, using aseptic technique. jb4 Blood collected. 23:37 Jim Dhillon MD is Hospitalizing Provider. rt 10/13 01:41 Imelda Montemayor, PERRI is Primary Nurse. lg3 05:29 No provider procedures requiring assistance completed. Patient admitted, IV remains in lg3 place. 07:15 Placed in gown. Bed in low position. Call light in reach. Side rails up X2. Warm wm blanket given. Cleaned of incontinence. Linen changed. Administered Medications: 10/12 21:19 Drug: Potassium Chloride PO Liquid 40 mEq Route: PO; lg3 10/13 00:01 Follow up: Response: No adverse reaction lg3 00:31 Drug: Haloperidol IVP 5 mg Route: IVP; Site: right antecubital; lg3 01:40 Follow up: Response: No change in condition lg3 01:39 Drug: Geodon IM 10 mg Route: IM; Site: right deltoid; lg3 05:29 Follow up: Response: No adverse reaction; RASS: Drowsy (-1) lg3 01:53 Drug: D10 in Water IVP 250 ml Route: IVP; Site: right antecubital; lg3 05:29 Follow up: Response: No adverse reaction; No change in condition lg3 Medication: 05:29 VIS not applicable for this client. lg3 Point of Care Testing: Blood Glucose: 10/12 19:43 Blood Glucose: 65 mg/dL; jb4 Ranges: Outcome: 23:37 Decision to Hospitalize by Provider. rt 10/13 05:29 Admitted to ER Hold. Please see [facility] for further documentation. lg3 Condition: stable Instructed on the need for admit. 15:42 Patient left the ED. hb Signatures: Dispatcher [employer] EDMS Kim Billy RN RN Denise Obando RN RN Shelton Overton RN RN jb4 Gibson, Lacie, RN RN lg3 Jigna Eddy Ryan, MD MD rt Corrections: (The following items were deleted from the chart) 10/12 19:42 19:37 64 kg Measured; jb4 jb4 10/13 00:32 00:02 Reassessment: Patient appears in no apparent distress at this time. No changes lg3 from previously documented assessment. Patient and/or family updated on plan of care and expected duration. Pain level reassessed. Patient is alert, oriented x 3, equal unlabored respirations, skin warm/dry/pink. lg3 00:33 00:02 Reassessment: Patient appears in no apparent distress at this time. No changes lg3 from previously documented assessment. Patient and/or family updated on plan of care and expected duration. Pain level reassessed. lg3
--- NOTE | 2022-10-12 23:51 | P.HP ---
Certification for Inpatient Patient admitted to: Observation With expected LOS: <2 Midnights Patient will require the following post-hospital care: None Practitioner: I am a practitioner with admitting privileges, knowledge of patient current condition, hospital course, and medical plan of care. Services: Services provided to patient in accordance with Admission requirements found in Title 42 Section 412.3 of the Code of Federal Regulations Patient History Date of Service: 10/13/22 Primary Care Provider: Marshall Reason for admission: AMS, Hypoglycemia, Elevated Trop History of Present Illness: Patient is a 67-year-old female with past medical history of ESRD on HD MWF, CAD with recent PCI, anemia of chronic disease, insulin-dependent diabetes, hypertension, and hypothyroidism who presented to the emergency department via EMS from long term with concerns of hypoglycemia, hypokalemia, and altered mental status. EMS administered glucose so she was alert and oriented x 4 upon arrival. Labs significant for hgb 9.3, hct 27.4, potassium 2.6, creatinine 2.87, glucose 62, trop 68.7. Head CT negative. Patient is intermittently confused and hallucinating. ED provider wishes to admit patient for further management. Allergies codeine Allergy (Intermediate, Verified 08/04/22 13:31) Itching promethazine [From Phenergan] Allergy (Intermediate, Verified 08/04/22 13:31) Itching adhesive tape Adverse Reaction (Verified 08/04/22 13:31) Itching/Hives/Rash Home medications list reviewed: Yes Home Medications: Atorvastatin Calcium [Lipitor] 40 mg PO BEDTIME 11/17/19 Furosemide 80 mg PO DAILY 09/03/20 Lisinopril [Zestril] 5 mg PO DAILY 09/03/20 Loratadine [Claritin*] 10 mg PO DAILY 09/03/20 Pantoprazole [Protonix Tab*] 40 mg PO BIDAC 30 Days #60 tab 10/20/21 Buspirone HCl [Buspar*] 5 mg PO BID 06/11/22 Levothyroxine Sodium 150 mcg PO DAILY 06/11/22 Metoprolol Succinate [Toprol Xl*] 12.5 mg PO BID 6AM 6PM tab 06/21/22 Aspirin [Aspirin EC 81 MG] 1 tab PO DAILY 08/12/22 Cholecalciferol (Vitamin D3) [Vitamin D 1000 Iu Tab*] 1 cap PO DAILY 08/12/22 Clopidogrel Bisulfate [Plavix*] 75 mg PO DAILY 30 Days #30 tab 08/12/22 Insulin Glargine,Hum.rec.anlog [Lantus] 50 units SQ BID 08/12/22 Amlodipine Besylate 10 mg PO DAILY 08/27/22 Insulin Lispro [Humalog Tee Kwikpen] 100 units SQ DIRECTED 08/27/22 Midodrine HCl 5 mg PO PRN 08/27/22 Sevelamer Carbonate 800 mg PO TID 08/27/22 buPROPion HCL [Bupropion HCl Sr] 150 mg PO DAILY 08/27/22 calcitrioL [Rocaltrol] 0.25 mcg PO DAILY 08/27/22 Clopidogrel Bisulfate [Plavix*] 75 mg PO DAILY #30 tab 09/16/22 Collagenase [Santyl Ointment*] 1 appl TOP DAILY #1 tube 09/16/22 Cyclobenzaprine [Flexeril] 10 mg PO TID PRN #30 tab 09/16/22 Docusate [Colace Cap*] 100 mg PO BID #60 cap 09/16/22 Ensure Max Protein 330 ml PO BID #60 can 09/16/22 Hydrocodone 7.5/APAP 325 [[place] 7.5/325 mg*] 1 tab PO Q6HP PRN #30 tab 09/16/22 Vancomycin/0.9 % Sod Chloride [Vancomycin HCl 1G/200 ml Bag] 1 gm IV AFTER EACH DIALYSIS 28 Days 09/18/22 levoFLOXacin [Levaquin] 250 mg PO DAILY 28 Days #28 tab 09/18/22 - Past Medical/Surgical History Diabetic: Yes -: IDDM -: Hypertension -: Hypothyroidism -: ESRD HD MWF -: hyperlipidemia -: depression -: Paralyzed Stomach -: Neuropathy -: CAD -: Back fusion -: bilateral total knee replacements -: bilateral carpal tunnel sx -: c section -: thyroidectomy -: neck fusion -: PD Cath then removed -: Cholecystectomy Psychosocial/ Personal History: Patient lives at [facility]. - Family History Mother -: Heart disease, Hypertension, Lung disease, Cancer Notes: breast ca Father -: Heart disease, Hypertension, Other (see notes) Notes: Alzheimer's - Social History Smoking Status: Never smoker Alcohol use: No CD- Drugs: No Caffeine use: No Place of Residence: Home Review of Systems Neurological: Confusion, Other (Hallucinations) Physical Examination - Vital Signs Temperature: 98.7 F Blood Pressure: 132/70 Pulse: 87 Respirations: 17 Pulse Ox (%): 98 - Physical Exam General: Alert, In no apparent distress, Confused (Intermittently), Obese HEENT: Atraumatic, EOMI, Sclerae nonicteric Neck: Supple, 2+ carotid pulse no bruit Respiratory: Clear to auscultation bilaterally, Normal air movement Cardiovascular: Regular rate/rhythm, Normal S1 S2 Gastrointestinal: Normal bowel sounds, No tenderness Musculoskeletal: No tenderness Integumentary: No rashes Neurological: Normal speech, Abnormal affect - Studies Laboratory Data (last 24 hrs) 10/12/22 19:58: Sodium 137, Potassium 2.6 L*, BUN 18, Creatinine 2.87 H, Glucose 62 L, Magnesium 2.0, Total Bilirubin 0.4, AST 16, ALT < 10 L, Alkaline Phosphatase 144 H 10/12/22 19:58: WBC 10.80, Hgb 9.3 L, Hct 27.4 L, Plt Count 181 Assessment and Plan - Problems (Diagnosis) (1) Encephalopathy Current Visit: Yes Status: Acute (2) Anemia Current Visit: Yes Status: Chronic Qualifiers: Anemia type: due to chronic kidney disease Chronic kidney disease stage: on chronic dialysis Qualified Code(s): N18.6 - End stage renal disease; D63.1 - Anemia in chronic kidney disease; Z99.2 - Dependence on renal dialysis (3) Diabetes mellitus Current Visit: Yes Status: Chronic Qualifiers: Diabetes mellitus type: type 2 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 supervisor use Diabetes mellitus complication status: with hypoglycemia Diabetes mellitus complication detail: without coma Qualified Code(s): E11.649 - Type 2 diabetes mellitus with hypoglycemia without coma; 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 (4) ESRD (end stage renal disease) Current Visit: Yes Status: Chronic (5) Obesity Current Visit: Yes Status: Chronic Qualifiers: Obesity type: due to excess calories Obesity classification: adult class 3 (BMI >= 40) Serious obesity comorbidity presence: with serious comorbidity Body mass index: unspecified BMI Qualified Code(s): E66.01 - Morbid (severe) obesity due to excess calories (6) Visual hallucinations Current Visit: Yes Status: Acute (7) Coronary artery disease Current Visit: Yes Status: Acute Qualifiers: Coronary Disease-Associated Artery/Lesion type: [place] artery [place] vs. transplanted heart: [place] heart Associated angina: without angina Qualified Code(s): I25.10 - Atherosclerotic heart disease of [place] coronary artery without angina pectoris (8) Elevated troponin Current Visit: Yes Status: Acute - Plan Patient is admitted for further management of acute encephalopathy, elevated troponin. Encephalopathy likely multifactorial secondary to hypoglycemia, sundowning, and possible underlying psychiatric disorder. Trend troponin. Consult nephrology for HD. D50W PRN for hypoglycemia. Patient currently refusing to eat. Obtain urine to check for UTI. Patient still makes a small amount of urine. Patient refused covid/flu swab. Discharge Plan: [facility] Plan to discharge in: 24 Hours - Advance Directives Does patient have a Living Will: No Does patient have a Durable POA for Healthcare: No - Code Status/Comfort Care Code Status Assessed: Yes Code Status: Full Code Physician Review: Patient Assessed, Agree with Above Assessment and Plan Critical Care: No Time Spent Managing Pts Care (In Minutes): 50
[2022-10-13] MEDS ORDERED: HALOPERIDOL LACT 5 MG/ML INJ ONE (00:32)
[2022-10-13] MEDS ORDERED: ZIPRASIDONE MESYLA 20 MG/VIAL IM ONE (01:29)
[2022-10-13] MEDS ORDERED: WATER FOR INJ,STERILE 10 ML ONE (01:32)
[2022-10-13] MEDS ORDERED: D10W 250 ML IV ONE ×2 (01:52→04:48)
[2022-10-13 04:56] LABS: Absolute Lymphocytes (CBC) 0.7 K/uL (0.7-4.9); Hematocrit 28.2 % (36.0-45.0); Lymphocytes % 7.2 % (15.3-44.8); MCV 87.5 fL (80-100); MPV 6.8 fL (7.6-11.3); RBC Red Blood Cell Count 3.22 M/uL (3.86-4.86)
[2022-10-13] MEDS: D10W 250 ML IV SCH (04:59)
[2022-10-13 05:18] LABS: Phosphorus 2.9 mg/dL (2.5-4.9); Potassium 2.9 mEq/L (3.5-5.1)
[2022-10-13 05:23] LABS: Troponin High Sensitivity 64.6 pg/mL (<58.9)
[2022-10-13] MEDS: KCL 20 MEQ/100 mL IVPB 20 MEQ/100 ML BAG IV SCH ×3 (08:10→12:00)
[2022-10-13] MEDS ORDERED: KCL 20 MEQ/100 mL IVPB 300 ML IV ONE (08:13)
[2022-10-13] MEDS ORDERED: LORazepam 2 MG/ML VIAL ONE ×3 (08:30→13:26)
[2022-10-13] MEDS: LORazepam 2 MG/ML VIAL IV PRN ×5 (08:32→23:13)
--- NOTE | 2022-10-13 10:07 | P.PN ---
Subjective Date of Service: 10/13/22 Primary Care Provider: Marshall Chief Complaint: AMS, Hypoglycemia, Elevated Trop Patient is 67 years of age with end-stage renal disease presented to the hospital with altered mental status he is currently alert and oriented x3 complaining of some pain in her left arm little fidgety Review of Systems 10-point ROS is otherwise unremarkable General: Weakness Physical Examination - Vital Signs Temperature: 98.1 F Blood Pressure: 125/74 Pulse: 91 Respirations: 17 Pulse Ox (%): 99 - Physical Exam General: Alert, Oriented x3 Respiratory: Clear to auscultation bilaterally Cardiovascular: No edema, Regular rate/rhythm, Normal S1 S2 Gastrointestinal: Normal bowel sounds, Soft and benign - Studies Laboratory Data (last 24 hrs) 10/12/22 19:58: Sodium 137, Potassium 2.6 L*, BUN 18, Creatinine 2.87 H, Glucose 62 L, Magnesium 2.0, Total Bilirubin 0.4, AST 16, ALT < 10 L, Alkaline Phosphat ase 144 H 10/12/22 19:58: WBC 10.80, Hgb 9.3 L, Hct 27.4 L, Plt Count 181 Assessment And Plan - Current Problems (Diagnosis) (1) Altered mental status Current Visit: Yes Status: Acute Plan: Patient is 67 years of age [facility] resident admitted with altered mental status Per kalemia she is end-stage renal disease on hemodialysis Labs reviewed troponin is mildly elevated probably due to underlying renal disease patient's thyroid function test is normal blood cultures ordered 1 dose of vancomycin and Rocephin (2) Hypoglycemia Current Visit: Yes Status: Acute Physician Review: Patient Assessed, Agree with Above Assessment and Plan
[2022-10-13] MEDS ORDERED: CEFTRIAXONE 1,000 MG in NA CHLORIDE 0.9% 50 ML IVPB ONE (11:00)
[2022-10-13] MEDS ORDERED: VANCOMYCIN 1.5 GM in NA CHLORIDE 0.9% 500 ML IVPB ONE (11:00)
[2022-10-13] MEDS ORDERED: NA CHLORIDE 0.9% 500 ML ONE (11:19)
[2022-10-13] MEDS ORDERED: CEFTRIAXONE 1000 MG/VIAL ONE (12:37)
[2022-10-13] MEDS: D5W 1,000 ML IV SCH (14:00)
[2022-10-13] MEDS ORDERED: D5W 1,000 ML IV ONE (14:20)
--- NOTE | 2022-10-13 15:25 | P.CNS ---
Date of Consult: 10/13/22 Reason for Consult: ESRD Requesting Physician: Jordan Recinos Primary Care Provider: Marshall Chief Complaint: AMS, Hypoglycemia, Elevated Trop History of Present Illness: 67F SNF resident w/ PMHx of ESRD on outpt HD Sunday & Sunday at [facility], CAD with recent PCI, anemia of chronic disease, DM2, Htn, obesity, and hypothyroidism who p/w AMS, hypokalemia, hypoglycemia, & elevated troponin, adm itted for further eval & mngt. Has had episodes of hallucinations today. VS stable. Allergies codeine Allergy (Intermediate, Verified 08/04/22 13:31) Itching promethazine [From Phenergan] Allergy (Intermediate, Verified 08/04/22 13:31) Itching adhesive tape Adverse Reaction (Verified 08/04/22 13:31) Itching/Hives/Rash Home Medications: Atorvastatin Calcium [Lipitor] 40 mg PO BEDTIME 11/17/19 Furosemide 80 mg PO DAILY 09/03/20 Lisinopril [Zestril] 5 mg PO DAILY 09/03/20 Loratadine [Claritin*] 10 mg PO DAILY 09/03/20 Pantoprazole [Protonix Tab*] 40 mg PO BIDAC 30 Days #60 tab 10/20/21 Buspirone HCl [Buspar*] 5 mg PO BID 06/11/22 Levothyroxine Sodium 150 mcg PO DAILY 06/11/22 Metoprolol Succinate [Toprol Xl*] 12.5 mg PO BID 6AM 6PM tab 06/21/22 Aspirin [Aspirin EC 81 MG] 1 tab PO DAILY 08/12/22 Cholecalciferol (Vitamin D3) [Vitamin D 1000 Iu Tab*] 1 cap PO DAILY 08/12/22 Insulin Glargine,Hum.rec.anlog [Lantus] 50 units SQ BID 08/12/22 Amlodipine Besylate 10 mg PO DAILY 08/27/22 Insulin Lispro [Humalog Tee Kwikpen] 100 units SQ DIRECTED 08/27/22 Midodrine HCl 5 mg PO PRN 08/27/22 Sevelamer Carbonate 800 mg PO TID 08/27/22 buPROPion HCL [Bupropion HCl Sr] 150 mg PO DAILY 08/27/22 calcitrioL [Rocaltrol] 0.25 mcg PO DAILY 08/27/22 Clopidogrel Bisulfate [Plavix*] 75 mg PO DAILY #30 tab 09/16/22 Collagenase [Santyl Ointment*] 1 appl TOP DAILY #1 tube 09/16/22 Cyclobenzaprine [Flexeril] 10 mg PO TID PRN #30 tab 09/16/22 Docusate [Colace Cap*] 100 mg PO BID #60 cap 09/16/22 Ensure Max Protein 330 ml PO BID #60 can 09/16/22 Hydrocodone 7.5/APAP 325 [[place] 7.5/325 mg*] 1 tab PO Q6HP PRN #30 tab 09/16/22 Vancomycin/0.9 % Sod Chloride [Vancomycin HCl 1G/200 ml Bag] 1 gm IV AFTER EACH DIALYSIS 28 Days 09/18/22 - Past Medical/Surgical History Diabetic: Yes -: IDDM -: Hypertension -: Hypothyroidism -: ESRD HD MWF -: hyperlipidemia -: depression -: Paralyzed Stomach -: Neuropathy -: CAD -: Back fusion -: bilateral total knee replacements -: bilateral carpal tunnel sx -: c section -: thyroidectomy -: neck fusion -: PD Cath then removed -: Cholecystectomy Psychosocial/ Personal History: Patient lives at [facility]. - Family History Mother Medical History: Heart disease, Hypertension, Lung disease, Cancer Notes: breast ca Father Medical History: Heart disease, Hypertension, Other (see notes) Notes: Alzheimer's - Social History Smoking Status: Unknown if ever smoked Alcohol use: No CD- Drugs: No Caffeine use: No Place of Residence: Home Review of Systems is unable to be obtained (d/t AMS) Physical Examination Temp Pulse Resp BP Pulse Ox 98.1 F 91 H 17 125/74 99 10/13/22 14:02 10/13/22 14:02 10/13/22 14:02 10/13/22 14:02 10/13/22 14:02 General: Confused HEENT: Atraumatic, Normocephalic Neck: Supple, JVD not distended Respiratory: Other (Symmetric chest expansion) Cardiovascular: No rubs, No murmurs Gastrointestinal: Soft and benign, No guarding Musculoskeletal: No clubbing Integumentary: No warmth Neurological: Other (+AMS) Lymphatics: No axilla or inguinal lymphadenopathy Urinary: Other (No bladder distention) External genitalia: Deferred Rectal: Deferred Laboratory Data (last 24 hrs) 10/13/22 04:29: WBC 9.50, Hgb 9.3 L, Hct 28.2 L, Plt Count 185 10/13/22 04:29: Sodium 137, Potassium 2.9 L, BUN 21 H, Creatinine 3.03 H, Glucose 78, Phosphorus 2.9, Magnesium 2.0 10/12/22 19:58: Sodium 137, Potassium 2.6 L*, BUN 18, Creatinine 2.87 H, Glucose 62 L, Magnesium 2.0, Total Bilirubin 0.4, AST 16, ALT < 10 L, Alkaline Phosphatase 144 H 10/12/22 19:58: WBC 10.80, Hgb 9.3 L, Hct 27.4 L, Plt Count 181 Conclusions/Impression: # ESRD on outpt HD HD tomorrow, qTTS while in house # AMS Hypoglycemia contributory +Visual hallucinations, delirium Per other services # Hypokalemia Improved HD as above # Anemia Retacrit SQ qTTS # Renal osteodystrophy Monitor serum Ca & Phos # CAD s/p recent PCI Per other services # Htn BP stable, monitor # DM2 w/ hypoglycemic episode Per primary team
[2022-10-14] MEDS: D5W 1,000 ML IV SCH (02:29)
[2022-10-14] MEDS: LORazepam 2 MG/ML VIAL IV PRN ×5 (03:39→23:50)
[2022-10-14 05:50] LABS: Absolute Lymphocytes (CBC) 0.6 K/uL (0.7-4.9); Hematocrit 31.1 % (36.0-45.0); Lymphocytes % 4.2 % (15.3-44.8); MPV 6.8 fL (7.6-11.3); RBC Red Blood Cell Count 3.53 M/uL (3.86-4.86)
[2022-10-14 06:01] LABS: Magnesium 1.9 mg/dL (1.6-2.4); Phosphorus 3.1 mg/dL (2.5-4.9); Potassium 3.6 mEq/L (3.5-5.1)
[2022-10-14] MEDS ORDERED: Magnesium Sulfate 2gm IVPB 2 G/50 ML BAG IV ONE (06:35)
[2022-10-14 08:06] LABS: Blood Morphology Comment NOT SEEN (NOT SEEN); Platelet Estimate ADEQ
[2022-10-14] MEDS ORDERED: ZIPRASIDONE MESYLA 20 MG/VIAL IM PRN (08:17)
[2022-10-14] MEDS: WATER FOR INJ,STERILE 10 ML IM PRN (08:43)
[2022-10-14] MEDS ORDERED: DEXMEDETOMIDINE HCL 1,000 MCG in NA CHLORIDE 0.9% 490 ML IV SCH (11:00)
[2022-10-14] MEDS: THIAMINE 200 MG/2 ML INJ IVP SCH ×2 (11:02→20:28)
--- NOTE | 2022-10-14 11:20 | P.PN ---
Subjective Date of Service: 10/14/22 Primary Care Provider: Marshall Chief Complaint: Delirium altered mental status Patient is delirious unresponsive sister at the bedside currently her problems started when she had the heel operation out 4 weeks ago and was unable to ambulate or put on weight and she has been having this altered mental status off and off for the past 4 weeks according to the sister at this time has been worse not smoke or drink history of coronary artery disease Review of Systems is unable to be obtained Physical Examination - Vital Signs Temperature: 97 F Blood Pressure: 139/78 Pulse: 108 Respirations: 24 Pulse Ox (%): 95 - Physical Exam General: Delirious, Unresponsive Respiratory: Clear to auscultation bilaterally Cardiovascular: No edema, Regular rate/rhythm, Normal S1 S2 Gastrointestinal: Normal bowel sounds, Soft and benign Assessment And Plan - Current Problems (Diagnosis) (1) Altered mental status Current Visit: Yes Status: Acute Plan: Patient is 67 years of age she is currently delirious altered mental status for the past 4 weeks she is she had a surgery on her right heel ,blood cultures are so far negative we will start patient on meropenem continue with vancomycin consult general surgery start on thiamine 200 mg IV twice a day delirious agitated also have started her on dexmedetomidine Qualifiers: Altered mental status type: delirium Qualified Code(s): R41.0 - Disorientation, unspecified (2) Hypoglycemia Current Visit: Yes Status: Acute Plan: Resolved (3) Ulcer of right heel Current Visit: Yes Status: Acute Plan: Patient has a necrotic wound in the right heel that has been debrided twice by Dr. Beasley chest severe peripheral vascular disease not a candidate for any interventional procedure as per sister Qualifiers: Non-pressure ulcer stage: with fat layer exposed Qualified Code(s): L97.412 - Non-pressure chronic ulcer of right heel and midfoot with fat layer exposed Physician Review: Patient Assessed, Agree with Above Assessment and Plan
[2022-10-14] MEDS ORDERED: COLLAGENASE 30 GM OINTMENT TOP ONE (11:30)
--- NOTE | 2022-10-14 12:53 | RAD REPORT ---
EXAM DESCRIPTION: RAD - Foot Right 2 View - 10/14/2022 12:36 pm CLINICAL HISTORY: Necrotic ulcer in the right heel COMPARISON: Foot Right 2 View dated 09/18/2022; Foot Right Wo Cont dated 08/28/2022 FINDINGS: Significant soft tissue thinning and ulceration is seen adjacent to the heel. Moderate jose caneal spurs. No gross fracture. Significant atherosclerosis. Radiographic evidence of osteomyelitis not seen, however MRI is more sensitive.
--- NOTE | 2022-10-14 14:22 | P.PN ---
Subjective Date of Service: 10/14/22 Primary Care Provider: Marshall Chief Complaint: AMS, Hypoglycemia, Elevated Trop 67F SNF resident w/ PMHx of ESRD on outpt HD Sunday & Sunday at [facility], [facility] with recent PCI, anemia of chronic disease, DM2, Htn, obesity, and hypothyroidism who p/w AMS, hypokalemia, hypoglycemia, & elevated troponin, admitted for further eval & mngt. Has had episodes of hallucinations today. VS stable. Today sedated seen and examined during dialysis Surgery consulted for foot ulcer Physical exam General: sedated Neck: Supple, no elevated JVD Respiratory: basal rales Cardiovascular: No rubs, No murmurs Gastrointestinal: Soft and benign, Non-distended Musculoskeletal: edema A/P # ESRD on outpt HD on HD MWF HD tomorrow, qTTS while in house # AMS possibly due to sepsis +- Hypoglycemia Per other services #Foot ulcer cont Abs and sound care surgery consulted # Hypokalemia Improved HD as above # Anemia Retacrit SQ qTTS # Renal osteodystrophy Monitor serum Ca & Phos # CAD s/p recent PCI Per other services # Htn BP stable, monitor # DM2 w/ hypoglycemic episode Per primary team Physical Examination - Vital Signs Temperature: 97.7 F Blood Pressure: 141/79 Pulse: 100 Respirations: 18 Pulse Ox (%): 96 Assessment And Plan Physician Review: Patient Assessed, Agree with Above Assessment and Plan
[2022-10-14] MEDS: Meropenem 500 MG in NA CHLORIDE 0.9% 100 ML IV SCH ×2 (16:02→20:28)
[2022-10-14] MEDS ORDERED: VANCOMYCIN 500 MG in NA CHLORIDE 0.9% 100 ML IVPB SCH (17:00)
[2022-10-14] MEDS ORDERED: EPOETIN ALFA-EPBX 4,000 UNIT/ML VIAL SQ SCH (18:00)
[2022-10-15] MEDS: LORazepam 2 MG/ML VIAL IV PRN (03:42)
[2022-10-15] MEDS: D10W 250 ML IV SCH (04:58)
[2022-10-15 05:11] LABS: Absolute Lymphocytes (CBC) 0.5 K/uL (0.7-4.9); Hematocrit 30.1 % (36.0-45.0); Lymphocytes % 5.2 % (15.3-44.8); MCV 88.3 fL (80-100); MPV 6.7 fL (7.6-11.3); RBC Red Blood Cell Count 3.41 M/uL (3.86-4.86)
[2022-10-15 05:24] LABS: Magnesium 2.2 mg/dL (1.6-2.4); Potassium 3.4 mEq/L (3.5-5.1)
[2022-10-15] MEDS: Meropenem 500 MG in NA CHLORIDE 0.9% 100 ML IV SCH (08:44)
[2022-10-15] MEDS: THIAMINE 200 MG/2 ML INJ IVP SCH (08:44)
[2022-10-15] MEDS: COLLAGENASE 30 GM OINTMENT TOP SCH (08:45)
[2022-10-15] MEDS ORDERED: POTASSIUM CL SA 10 MEQ TAB PO ONE (10:34)
--- NOTE | 2022-10-15 10:39 | P.PN ---
Subjective Date of Service: 10/15/22 Primary Care Provider: Marshall Chief Complaint: Altered mental status Patient is doing much better more alert responsive cooperative today dramatic change since yesterday Review of Systems Unremarkable Physical Examination - Vital Signs Temperature: 97.2 F Blood Pressure: 132/98 Pulse: 110 Respirations: 26 Pulse Ox (%): 96 - Physical Exam General: Alert, In no apparent distress, Oriented x3 Respiratory: Clear to auscultation bilaterally Cardiovascular: No edema, Regular rate/rhythm, Normal S1 S2 Assessment And Plan - Current Problems (Diagnosis) (1) Altered mental status Current Visit: Yes Status: Acute Plan: Patient admitted with delirium she is much better today patient is on hemodialysis denies any shortness of breath alert oriented x3 cultures are negative not sure what the etiology is apparently has been going on for the past month continue with thiamine is no evidence of sepsis has a heel ulcer on her right heel seen by Dr. Beasley separative treatment with Santyl vital signs oxygenation stable quite possible that hypoglycemia was contributing to her altered mental status for the past month probably best to stop the long-acting right now and titrate the dose check serum cortisol level DC antibiotic Qualifiers: Altered mental status type: delirium Qualified Code(s): R41.0 - Disorientation, unspecified (2) Hypoglycemia Current Visit: Yes Status: Resolved Plan: Resolved quite possible that her altered mental status was some persistent hypoglycemia avoid insulin Physician Review: Patient Assessed, Agree with Above Assessment and Plan
[2022-10-15] MEDS ORDERED: D50W 25 GM/50 ML SYRINGE IV PRN (10:41)
[2022-10-15] MEDS ORDERED: GLUCAGON 1 MG/VIAL IM PRN (10:41)
[2022-10-15] MEDS ORDERED: POTASSIUM PHOS IN 0.9 % NACL 15 MMOL/250 ML BAG IV ONE (11:00)
[2022-10-15] MEDS: INSULIN -REGULAR HUMAN 50 UNIT/0.5 ML ML SQ SCH ×3 (11:30→21:00)
--- NOTE | 2022-10-15 12:54 | P.PN ---
Subjective Date of Service: 10/15/22 Primary Care Provider: Marshall Chief Complaint: Altered mental status 67F SNF resident w/ PMHx of ESRD on outpt HD Sunday & Sunday at [facility] with recent PCI, anemia of chronic disease, DM2, Htn, obesity, and hypothyroidism who p/w AMS, hypokalemia, hypoglycemia, & elevated troponin, admitted for further eval & mngt. Has had episodes of hallucinations today. VS stable. Today more alert off sedation Next Hd on Sunday F/U cultures Physical exam General: sedated Neck: Supple, no elevated JVD Respiratory: basal rales Cardiovascular: No rubs, No murmurs Gastrointestinal: Soft and benign, Non-distended Musculoskeletal: edema A/P # ESRD on outpt HD on HD MWF HD qTTS while in house renal dose meds # AMS possibly due to sepsis +- Hypoglycemia Per other services #Foot ulcer cont Abs and [facility] care surgery consulted # Hypokalemia Improved HD as above # Anemia Retacrit SQ qTTS # Renal osteodystrophy Monitor serum Ca & Phos # CAD s/p recent PCI Per other services # Htn BP stable, monitor # DM2 w/ hypoglycemic episode Per primary team Physical Examination - Vital Signs Temperature: 97.2 F Blood Pressure: 132/98 Pulse: 110 Respirations: 26 Pulse Ox (%): 96 Assessment And Plan Physician Review: Patient Assessed, Agree with Above Assessment and Plan
--- NOTE | 2022-10-15 13:32 | CON ---
Date of Consultation: 10/14/2022 Brief History Of Present Illness: The patient is a 67-year-old female, known to me from previous adm ission, who has history of severe peripheral arterial disease. She was seen on 08/28/2022 for preston arshad issues. She has a history of end-stage renal disease, on hemodialysis with recent PCI, severe reshma nary artery disease, severe peripheral arterial disease, anemia of chronic disease diabetes, hyperten chelo, hypothyroidism, who presented to the hospital with altered mental status. 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 As such, she was transferred here with altered mental status and concerns at that point. I did previously performed debridement of her right heel on 2 separate occasions. She has severe perip heral arterial disease in the right lower extremity and left lower extremity. Her wound on the right heel was debrided on the last visit due to pressure effect. She has significant pressure, diabetic, peripheral arterial disease related ulcer. There were no complaints related to this area and she hermosillo s been not receiving the wound care as described by the family's description. Past Medical History: Diabetes, hypertension, hypothyroidism, end-stage renal disease, hyperlipidemi a, depression, gastroparesis, neuropathy, coronary artery disease. Past Surgical History: Includes back fusion, knee replacement, carpal tunnel surgery, C-sections, th yroid surgery, peritoneal dialysis catheter placement with removal, neck fusion, cholecystectomy, and right heel debridement x2. Social History: She lives at [facility]. Allergies: TO CODEINE, PHENERGAN, AND ADHESIVE TAPE. Home Medications: Included Lipitor, Lasix, Zestril, Claritin, Protonix, BuSpar, levothyroxine, metop rolol, aspirin, vitamin D, Plavix, insulin, amlodipine, lispro insulin, midodrine, sevelamer, bupropi on, calciferol. Review of Systems: Ten-point review of systems unable to obtain as the patient has altered mental status during my exami nation; however, family is present at the bedside during my exam. Physical Examination: General: During my examination, she is lethargic and minimally arousable. She does not respond to v erbal stimuli. HEENT: She is otherwise normocephalic. Sclerae anicteric. Mucous membranes moist. Oropharynx is c lear. Neck: Supple without JVD. Chest: Normal expansion and excursion. Cardiovascular: Regular rate and rhythm during my exam. Pulmonary: Clear to auscultation bilaterally. Abdomen: Soft. Extremities: Focused examination of extremities; her right heel has the same said open wound with noé e granulation tissue present. There was minimal eschar at the surrounding area, but no evidence of i nfection. There was no cellulitis or evidence of infection. No drainable collections. The area louise ears to be adequately perfused at this time. Vital Signs: Her vital signs during my exam were blood pressure 100/64, pulse 76, respiratory rate 1 5, temperature 96.4, 98% on room air saturation. Laboratory Data: She had a foot x-ray performed as well, which was officially read as significant so ft tissue thinning and ulceration adjacent to the heel, moderate calcaneal spurs, significant atheros clerosis. Radiographic evidence of osteomyelitis not seen. However, MRI is more sensitive. She had a laboratory exam as well, which reveals a white blood cell count of 13.8, hemoglobin is 10.1, hemat ocrit 31.1, platelet count was 208, neutrophils are 87%. Her sodium 136, potassium 3.6, chloride 108 , carbon dioxide 23, BUN is 23, creatinine 3.1, glucose was 116. Her troponin on admission on 10/13 was 64.6, this is on high sensitivity scale. Assessment And Plan: This is a 67-year-old woman, who presents with altered mental status of uncerta in etiology. 1.IV fluid hydration. 2.Medical management. 3.Continue diagnostic workup. 4.I do not find that the patient's heel contributing to a septic foci at this point and recommend co ntinue the Santyl and Vashe dressings damp to dry daily with elevation, pressure reduction. Continue medical management for her diabetes and concomitant medical conditions to help optimize treatment. We will wrap and elevate this extremity as well and as described minimize pressure in the area air ma ttress is recommended. I will follow along with you. Thank you for this interesting consult. SOCRATES/RENÉ Voice ID: [id number] Report ID: [id number]
--- NOTE | 2022-10-15 18:52 | EKG ---
Test Date: 2022-10-12 Test Time: 19:38:18 Director Outcomes: AKIL MEASUREMENT RESULTS: Intervals: Rate: 87 MD: 180 QRSD: 164 QT: 436 QTc: 524 [place]: P: 79 MD: 180 QRS: 37 T: 19 INTERPRETIVE STATEMENTS: Normal sinus rhythm Right bundle branch block Possible Inferior infarct, age undetermined Abnormal ECG Compared to ECG 09/28/2022 08:34:34 Sinus tachycardia no longer present Fusion complex(es) no longer present Myocardial infarct finding still present Electronically Signed On 10-15-22 18:47:35 CDT by Imer Lantigua
[2022-10-15] MEDS: THIAMINE HCL 100 MG TABLET PO SCH (21:45)
[2022-10-16] MEDS: LORazepam 2 MG/ML VIAL IV PRN (01:04)
[2022-10-16 04:53] LABS: Absolute Lymphocytes (CBC) 0.7 K/uL (0.7-4.9); Hematocrit 28.3 % (36.0-45.0); Lymphocytes % 9.1 % (15.3-44.8); MCV 88.4 fL (80-100); MPV 6.3 fL (7.6-11.3)
[2022-10-16 05:10] LABS: Magnesium 2.1 mg/dL (1.6-2.4); Phosphorus 2.1 mg/dL (2.5-4.9); Potassium 3.8 mEq/L (3.5-5.1)
[2022-10-16] MEDS: INSULIN -REGULAR HUMAN 50 UNIT/0.5 ML ML SQ SCH ×4 (07:30→21:00)
--- NOTE | 2022-10-16 08:36 | EKG ---
Test Date: 2022-10-12 Test Time: 19:39:08 [place] Vehicle Mechanic: AKIL MEASUREMENT RESULTS: Intervals: Rate: 87 NC: 156 QRSD: 168 QT: 446 QTc: 536 [place]: P: 91 NC: 156 QRS: 22 T: 0 INTERPRETIVE STATEMENTS: Normal sinus rhythm Right bundle branch block Inferior infarct, age undetermined Abnormal ECG Compared to ECG 10/12/2022 19:38:18 No significant changes Electronically Signed On 10-16-22 08:33:00 CDT by William Uribe
--- NOTE | 2022-10-16 08:49 | P.PN ---
Subjective Date of Service: 10/16/22 Subjective: No new changes, No C/O voiced, Improving I was able to wake her up and she did recognize me and said my name. She was unsure where she was. The nurse stated that her mentation waxes and wanes at times. The MRI results came back with no acute abnormality noted. patient is overflow into the ICU and she will get a bed whenever there is 1 available. Patient is a resident of [facility] * was notified by nursing staff that patient was impacted. Subsides enema given and patient had a large bowel movement. Review of Systems 10-point ROS is otherwise unremarkable Physical Examination - Vital Signs Temperature: 98.2 F Blood Pressure: 129/77 Pulse: 107 Respirations: 20 Pulse Ox (%): 96 - Physical Exam General: Alert, In no apparent distress, Oriented x1, Confused Respiratory: Diminished Cardiovascular: Regular rate/rhythm, Normal S1 S2, Systolic murmur Gastrointestinal: Normal bowel sounds, Soft and benign, Non-distended, No tenderness Musculoskeletal: No clubbing, No swelling Integumentary: Skin breakdown, Skin lesion, Tenderness/swelling, Erythema, Warmth, Pressure ulcer Neurological: Sensation intact, Cranial nerves 3-12 intact - Studies Medications List Reviewed: Yes Assessment & Plan - Problems (Diagnosis) (1) Altered mental status Current Visit: Yes Status: Acute Qualifiers: Altered mental status type: delirium Qualified Code(s): R41.0 - Disorientation, unspecified (2) Coronary artery disease Current Visit: Yes Status: Acute Qualifiers: Coronary Disease-Associated Artery/Lesion type: torres martinez artery [place] vs. transplanted heart: torres martinez heart Associated angina: without angina Qualified Code(s): I25.10 - Atherosclerotic heart disease of torres martinez coronary artery wit hout angina pectoris (3) Ulcer of right heel Current Visit: Yes Status: Acute Qualifiers: Non-pressure ulcer stage: with fat layer exposed Qualified Code(s): L97.412 - Non-pressure chronic ulcer of right heel and midfoot with fat layer exposed (4) Diabetes mellitus Current Visit: Yes Status: Chronic Qualifiers: Diabetes mellitus type: type 2 Diabetes mellitus alf insulin use: with alf use Diabetes mellitus complication status: with hypoglycemia Diabetes mellitus complication detail: without coma Qualified Code(s): E11.649 - Type 2 diabetes mellitus with hypoglycemia without coma; Z79.4 - terminal gauger (current) use of insulin (5) ESRD (end stage renal disease) Current Visit: Yes Status: Chronic (6) Hypothyroidism Current Visit: No Status: Chronic Qualifiers: Hypothyroidism type: acquired Qualified Code(s): E03.9 - Hypothyroidism, unspecified - Plan -IV hydration -IV antibiotics/Continue wound care on the right heel -cultures are pending -check renal function and electrolytes -MRI of the brain negative -bed check in place -physical therapy evaluation once mentation is improved -discuss code status with family Discharge Plan: Retirement Plan to discharge in: 48 Hours - Advance Directives Does patient have a Living Will: No Does patient have a Durable POA for Healthcare: No - Code Status/Comfort Care Code Status: Full Code Physician Review: Patient Assessed, Agree with Above Assessment and Plan Critical Care: No Time Spent Managing PTS Care (In Minutes): 35
[2022-10-16] MEDS ORDERED: NA CHLORIDE 0.9% 1,000 ML IV SCH (09:00)
[2022-10-16] MEDS ORDERED: VITAMIN D 1000 UNIT TAB PO SCH (09:00)
[2022-10-16] MEDS ORDERED: CALCITROL 0.25 MCG CAP PO SCH (09:00)
[2022-10-16] MEDS ORDERED: MIDODRINE HCL 5 MG TABLET PO PRN (09:00)
[2022-10-16] MEDS ORDERED: [UNRECOGNIZED DRUG - OTHER] IV SCH (09:00)
[2022-10-16] MEDS ORDERED: COLLAGENASE 30 GM OINTMENT TOP SCH (09:00)
[2022-10-16] MEDS ORDERED: SOD CHLORIDE IV SCH (09:00)
[2022-10-16] MEDS: LEVOTHYROXINE SOD 0.075 MG TAB PO SCH (09:00)
[2022-10-16] MEDS ORDERED: VANCOMYCIN IV SCH (09:00)
[2022-10-16] MEDS: THIAMINE HCL 100 MG TABLET PO SCH ×2 (09:05→21:04)
[2022-10-16] MEDS: COLLAGENASE 30 GM OINTMENT TOP SCH (09:05)
[2022-10-16] MEDS: SEVELAMER CARBONATE 800 MG TABLET PO SCH ×3 (09:05→17:37)
[2022-10-16] MEDS: ASPIRIN EC 81 MG TAB PO SCH (09:05)
[2022-10-16] MEDS: BUSPIRONE HCL 5 MG TABLET PO SCH ×2 (09:05→21:04)
[2022-10-16] MEDS: CLOPIDOGREL 75 MG TABLET PO SCH (09:06)
[2022-10-16] MEDS: DOCUSATE NA 100 MG CAP PO SCH ×2 (09:06→21:04)
[2022-10-16] MEDS: PANTOPRAZOLE 40MG TABLET PO SCH ×2 (09:06→17:37)
[2022-10-16] MEDS: lisinopriL 5 MG TAB PO SCH (09:06)
[2022-10-16] MEDS: ENSURE MAX PROTEIN 330 ML LIQUID PO SCH ×2 (09:08→21:00)
[2022-10-16] MEDS: HYDROCODONE/APAP 7.5/325 MG TAB PO PRN (11:30)
[2022-10-16] MEDS: BUPROPRION HCL S.R. 150MG TAB PO SCH (12:30)
--- NOTE | 2022-10-16 15:29 | RAD REPORT ---
EXAM DESCRIPTION: MRI - Brain Wo Cont - 10/16/2022 3:19 pm CLINICAL HISTORY: AMS Headache, drowsiness COMPARISON: Head Brain Wo Cont dated 10/12/2022 TECHNIQUE: Multi-sequence, multiplanar MR imaging of the brain was performed without contrast. FINDINGS: No intracranial hemorrhage, hydrocephalus or extra-axial fluid collections.Mild periventri cular and deep white matter chronic microvascular ischemic changes. No edema or shift of midline stru ctures. No findings to suspect brain mass. DWI is negative for acute CVA. Midline structures are normally formed. Mastoid air cells and paranasal sinuses are clear. IMPRESSION: Negative for acute CVA or other acute intracranial process.
[2022-10-16] MEDS: METOPROLOL XL 25 MG TAB PO SCH (17:37)
[2022-10-16] MEDS: VANCOMYCIN 1 GM in NA CHLORIDE 0.9% 250 ML IVPB SCH (18:19)
[2022-10-16] MEDS: ATORVASTATIN 40 MG TAB PO SCH (21:04)
--- NOTE | 2022-10-17 00:19 | PN ---
Date of Progress Note: 10/16/2022 Chief Complaint: End-stage renal disease, on hemodialysis. Subjective: The patient is admitted to ICU because of generalized weakness and altered mental status . She is 67-year-old woman, SNF resident with past medical history significant for end-stage renal d isbeckye, on dialysis Sunday, Sunday, Sunday, coronary artery disease with recent intervention as sh e had a PCI. She has history of obesity, hypothyroidism, and diabetes mellitus type 2, chronic anemi a due to chronic kidney disease. The patient was admitted because of altered mental status. She was found to have hypokalemia, hypoglycemia, elevated troponin. She has history of episodes of hallucin ation. Vital signs stable. The patient remains hemodynamically stable. She is more alert today. S he is due dialysis tomorrow. Review of Systems: Denies new complaints. Physical Examination: Lungs: Clear to auscultation bilaterally. Heart: S1-S2. Abdomen: Soft. Extremities: Edema present in both legs of 1 class. Impression And Plan: 1.End-stage renal disease. Continue dialysis. Next dialysis tomorrow. 2.Altered mental status possible due to sepsis, hypoglycemia. Continue to monitor blood culture. C ontinue antibiotics according to culture results. 3.Foot ulcer, diabetic foot infection. Continue antibiotics and wound care. Surgery was consulted for wound care. 4.Anemia and CKD. Continue XENIA. 5.Renal osteodystrophy. Monitor phosphorus level. 6.Hypertension. Blood pressure is stable. Continue medication is according to blood pressure log. FREDDY/RENÉ Voice ID: [id number] Report ID: [id number]
[2022-10-17] MEDS: LEVOTHYROXINE SOD 0.075 MG TAB PO SCH (05:48)
[2022-10-17] MEDS: METOPROLOL XL 25 MG TAB PO SCH ×2 (05:49→17:39)
[2022-10-17 06:59] LABS: Absolute Lymphocytes (CBC) 0.6 K/uL (0.7-4.9); Lymphocytes % 7.2 % (15.3-44.8); MCV 88.8 fL (80-100); MPV 6.3 fL (7.6-11.3); RBC Red Blood Cell Count 3.15 M/uL (3.86-4.86)
[2022-10-17] MEDS: INSULIN -REGULAR HUMAN 50 UNIT/0.5 ML ML SQ SCH ×4 (07:30→20:50)
[2022-10-17 07:41] LABS: AST/SGOT 13 U/L (15-37); Albumin 2.2 g/dL (3.4-5.0); Alkaline Phosphatase 162 U/L (45-117); BUN Blood Urea Nitrogen 29 mg/dL (7-18); Bicarbonate 26 mEq/L (21-32); Bilirubin Total 0.6 mg/dL (0.2-1.0); Glomerular Filtration Rate 15 ml/min (=/>90); Glucose Level 122 mg/dL (74-106); Magnesium 2.1 mg/dL (1.6-2.4); Potassium 3.7 mEq/L (3.5-5.1); Protein, Total 6.1 g/dL (6.4-8.2); Sodium Level 142 mEq/L (136-145)
[2022-10-17 07:47] LABS: ALT/SGPT < 10 U/L (13-56)
[2022-10-17] MEDS: lisinopriL 5 MG TAB PO SCH (07:57)
[2022-10-17] MEDS: BUSPIRONE HCL 5 MG TABLET PO SCH ×2 (07:57→20:36)
[2022-10-17] MEDS: ENSURE MAX PROTEIN 330 ML LIQUID PO SCH ×2 (07:57→20:37)
[2022-10-17] MEDS: ASPIRIN EC 81 MG TAB PO SCH (07:57)
[2022-10-17] MEDS: CLOPIDOGREL 75 MG TABLET PO SCH (07:57)
[2022-10-17] MEDS: PANTOPRAZOLE 40MG TABLET PO SCH ×2 (07:57→17:40)
[2022-10-17] MEDS: DOCUSATE NA 100 MG CAP PO SCH ×2 (07:57→20:37)
[2022-10-17] MEDS: THIAMINE HCL 100 MG TABLET PO SCH ×2 (07:58→20:37)
[2022-10-17] MEDS ORDERED: POTASSIUM 25 MEQ EFFERV TAB PO ONE (08:45)
[2022-10-17] MEDS: BUPROPRION HCL S.R. 150MG TAB PO SCH (09:08)
--- NOTE | 2022-10-17 10:51 | P.PN ---
Subjective Date of Service: 10/17/22 Primary Care Provider: Marshall Chief Complaint: Altered mental status No acute events overnight. She is alert and oriented x 2 to person and time. She is unable to identify her location. She is unable to explain her hospital course to me. She denies any chest pain, headaches, shortness of breath, or abdominal pain. Review of Systems 10-point ROS is otherwise unremarkable Integumentary: Other (bilateral heel ulcer (right > left)) Neurological: Confusion Physical Examination - Vital Signs Temperature: 98.2 F Blood Pressure: 129/77 Pulse: 107 Respirations: 20 Pulse Ox (%): 96 - Physical Exam General: Alert, In no apparent distress, Oriented x2 HEENT: Atraumatic, Mucous membr. moist/pink, EOMI, Sclerae nonicteric Neck: JVD not distended Respiratory: Clear to auscultation bilaterally, Normal air movement Cardiovascular: Regular rate/rhythm, Normal S1 S2, No gallops, No rubs, No murmurs, Edema (trace BLE) Gastrointestinal: Normal bowel sounds, Soft and benign, Non-distended, No tenderness, No rebound, No guarding Musculoskeletal: No clubbing Integumentary: Pressure ulcer (bilateral heels (right > left)) Neurological: Normal speech, Normal affect - Studies Medications List Reviewed: Yes Assessment And Plan - Plan # Acute Toxic Metabolic Encephalopathy possibly secondary to Hypoglycemia vs Polypharmacy vs - improved # Recent Admission for Septic Shock likely secondary to Methicillin-Sensitive Staphyloccoccus Aureus and Pseudomonas Aeruginosa bilateral Diabetic/Pressure Heel Ulcers with Methicillin-Sensitive Staphyloccoccus Aureus Bacteremia - Evaluation thus far: - Labs = Na+ 142, Ca2+ 9.7, CO2 26, Glucose 51 on presentation, Ammonia 36, BUN 29, Vitamin B12 1411, TSH pending - VBG = pending - Blood cultures x 2 drawn - Urinalysis = pending - Chest x-ray = "no acute abnormalities displayed" - Right foot x-ray = "significant soft tissue thinning and ulceration is seen adjacent to the heel. Moderate calcaneal spurs. No gross fracture. Significant atherosclerosis. Radiographic evidence of osteomyelitis not seen, however MRI is more sensitive." - CT head = "no acute intracranial abnormality is seen" - MRI brain = "negative for acute CVA or other acute intracranial process." - Management plan: - Multiple medications on SEP may contribute to AMS (buspirone, bupropion, PRN lorazepam, PRN ziprasidone, hydrocodone) - Consulted Psychiatry - recommendations appreciated - Consulted Infectious Diseases and General Surgery in regards to heel ulcer - recommendations appreciated - Continue Vancomycin and wound care - Discontinued PRN lorazepam, ziprasidone - Serial neuro checks # Suspect Type II Non-ST Segment Elevation Myocardial Infarction (Demand Ischemia) due to above # Coronary Artery Disease s/p PCI (08/11/2022) # Hypertension # Hyperlipidemia Recently underwent PCI to RCA on 08/11/2022. Plan was for staged PCI given advanced LAD disease. - Evaluation thus far: - EKG: reportedly without STEMI, trend - Serial troponin: 68.7 -> 64.6 - Transthoracic echocardiogram (Aug 2022) = "1. normal left ventricular ejection fraction 50-55% 2. mild mitral regurgitation 3. mild tricuspid regurgi tation 4. moderate diastolic dysfunction 5. right ventricular systolic pressure is elevated 60-65 mmHg" - Management plan: - Consult Cardiology and spoke with Dr. Uribe - recommendations appreciated - Continue home aspirin, metoprolol, lisinopril, clopidogrel, atorvastatin # Hypoglycemia in Type II Diabetes Mellitus - PRN D50W for hypoglycemia # End-Stage Renal Disease on MWF iHD # Anemia of Chronic Kidney Disease - Nephrology consulted - recommendations appreciated # Hypothyroidism - Continue home levothyroxine # Hypokalemia - resolved Abran An M.D.
[2022-10-17 11:54] LABS: Arterial Blood Carboxyhemoglob 1.9 % (0-1.5); Blood Gas Oxyhemoglobin 91.9 % (94-97); Blood O2 Saturation 94.7 % (92-98.5)
[2022-10-17 11:58] LABS: Thyroid Stimulating Hormone 9.65 uIU/mL (0.358-3.740)
[2022-10-17] MEDS: HYDROCODONE/APAP 7.5/325 MG TAB PO PRN (13:15)
[2022-10-17 13:49] LABS: Specific Gravity 1.017 (1.005-1.030); Urine Bacteria 20-50 /HPF (<20); Urine Bilirubin NEGATIVE (Negative); Urine Blood 2+ (Negative); Urine Clarity Extremely Turbid (Clear); Urine Color Light-Orange (Yellow); Urine Glucose NEGATIVE (Negative); Urine Protein 3+ (Negative); Urine RBC >50 /HPF (None Seen); Urine Urobilinogen Normal (Normal); Urine WBC Clump Occasional /HPF (None Seen)
[2022-10-17] MEDS: COLLAGENASE 30 GM OINTMENT TOP SCH (14:07)
[2022-10-17] MEDS ORDERED: MICAFUNGIN SODIUM 100 MG VIAL IV SCH (15:00)
[2022-10-17] MEDS: MICAFUNGIN SODIUM 100 MG in NA CHLORIDE 0.9% 100 ML IV SCH (15:56)
--- NOTE | 2022-10-17 17:44 | PN ---
Date of Progress Note: 10/17/2022 Subjective: The patient was admitted with septic shock secondary to UTI and osteomyelitis. The patient receiving local wound care. The patient planned for dialysis today. Physical Examination: Vital Signs: Blood pressure 129/77, pulse of 107, afebrile. Chest: Faint rales bilateral. Heart: S1, S2. Systolic murmur. Abdomen: Soft, nontender. Extremity: Dressing on both feet. Neuro: Alert, sleepy. No focality. Laboratory Data: Hemoglobin 9.2. Sodium 142, potassium 3.7, bicarb 26, BUN 29, creatinine 3.2, calcium 9.7. Current Medications: The patient on include micafungin, vancomycin, midodrine, Plavix, metoprolol, lisinopril, pantoprazole, Zofran. Assessment And Plan: 1. End-stage renal disease, slightly on the over volume side. We will challenge the patient. We will use sodium module and low temperature to support the blood pressure. 2. Low blood pressure. Continue midodrine. Discontinue lisinopril. 3. Sepsis secondary to foot infection and urinary tract infection. Continue current antibiotic. Follow up with ID. 4. Over volume. We will challenge the patient. 5. Anemia of chronic kidney disease. Resume XENIA. 6. Hypokalemia. The patient is going to be dialyzed on high K bath. Time spent examining the patient [id number], reviewing data, lab and radiology, placing order, discussing the case with the patient, discussing the case with the rock climbing team member including nurse more than 35 minutes CR Voice ID: [id number] Report ID: [id number] ASHOK
[2022-10-17] MEDS: VANCOMYCIN 1 GM in NA CHLORIDE 0.9% 250 ML IVPB SCH (17:48)
[2022-10-17] MEDS: ATORVASTATIN 40 MG TAB PO SCH (20:36)
[2022-10-17] MEDS ORDERED: ZIPRASIDONE MESYLA 20 MG/VIAL IM PRN (23:19)
[2022-10-17] MEDS ORDERED: WATER FOR INJ,STERILE 10 ML IM PRN (23:19)
[2022-10-17] MEDS: WATER FOR INJ,STERILE 10 ML IM PRN (23:32)
[2022-10-18 04:47] LABS: Potassium 3.6 mEq/L (3.5-5.1)
[2022-10-18] MEDS: LEVOTHYROXINE SOD 0.075 MG TAB PO SCH (05:38)
[2022-10-18] MEDS: METOPROLOL XL 25 MG TAB PO SCH ×2 (05:38→17:12)
[2022-10-18] MEDS: INSULIN -REGULAR HUMAN 50 UNIT/0.5 ML ML SQ SCH ×4 (07:30→21:14)
[2022-10-18] MEDS ORDERED: POTASSIUM CL SA 10 MEQ TAB PO ONE (09:00)
[2022-10-18] MEDS: COLLAGENASE 30 GM OINTMENT TOP SCH (09:00)
[2022-10-18] MEDS: ENSURE MAX PROTEIN 330 ML LIQUID PO SCH ×2 (09:00→21:00)
--- NOTE | 2022-10-18 09:19 | P.CNS ---
Date of Consult: 10/18/22 Reason for Consult: Heel ulcer, on vanc Primary Care Provider: Marshall Chief Complaint: Altered mental status History of Present Illness: Patient is a 67 yo female with a past medical history of ESRD, CAD, anemia of chronic disease, hypertension, diabetes, peripheral arterial disease,and hypothyroidism. She presented to the ED from [facility] with altered mental status. Patient states she has had multiple episodes of altered mental status since she started at the [facility] one month ago. Chronic wound on right heel, unstageable noted. No leukocytosis, afebrile. Of note, patient had recent admission in August with septic shock; right heel wound culture with MSSA and pseudomonas aeruginosa. Currently, patient is sitting in bed eating breakfast. Patient is alert and oriented x3 at this time. Allergies codeine Allergy (Intermediate, Verified 08/04/22 13:31) Itching promethazine [From Phenergan] Allergy (Intermediate, Verified 08/04/22 13:31) Itching adhesive tape Adverse Reaction (Verified 08/04/22 13:31) Itching/Hives/Rash Home medications list reviewed: Yes Home Medications: Atorvastatin Calcium [Lipitor] 40 mg PO BEDTIME 11/17/19 Furosemide 80 mg PO DAILY 09/03/20 Lisinopril [Zestril] 5 mg PO DAILY 09/03/20 Loratadine [Claritin*] 10 mg PO DAILY 09/03/20 Pantoprazole [Protonix Tab*] 40 mg PO BIDAC 30 Days #60 tab 10/20/21 Buspirone HCl [Buspar*] 5 mg PO BID 06/11/22 Levothyroxine Sodium 150 mcg PO DAILY 06/11/22 Metoprolol Succinate [Toprol Xl*] 12.5 mg PO BID 6AM 6PM tab 06/21/22 Aspirin [Aspirin EC 81 MG] 1 tab PO DAILY 08/12/22 Cholecalciferol (Vitamin D3) [Vitamin D 1000 Iu Tab*] 1 cap PO DAILY 08/12/22 Insulin Lispro [Humalog Tee Kwikpen] 100 units SQ DIRECTED 08/27/22 Midodrine HCl 5 mg PO PRN 08/27/22 Sevelamer Carbonate 800 mg PO TID 08/27/22 buPROPion HCL [Bupropion HCl Sr] 150 mg PO DAILY 08/27/22 calcitrioL [Rocaltrol] 0.25 mcg PO DAILY 08/27/22 Clopidogrel Bisulfate [Plavix*] 75 mg PO DAILY #30 tab 09/16/22 Collagenase [Santyl Ointment*] 1 appl TOP DAILY #1 tube 09/16/22 Cyclobenzaprine [Flexeril] 10 mg PO TID PRN #30 tab 09/16/22 Docusate [Colace Cap*] 100 mg PO BID #60 cap 09/16/22 Ensure Max Protein 330 ml PO BID #60 can 09/16/22 Hydrocodone 7.5/APAP 325 [Shiner 7.5/325 mg*] 1 tab PO Q6HP PRN #30 tab 09/16/22 Vancomycin/0.9 % Sod Chloride [Vancomycin HCl 1G/200 ml Bag] 1 gm IV AFTER EACH DIALYSIS 28 Days 09/18/22 - Past Medical/Surgical History Diabetic: Yes -: IDDM -: Hypertension -: Hypothyroidism -: ESRD HD MWF -: hyperlipidemia -: depression -: Paralyzed Stomach -: Neuropathy -: CAD -: Back fusion -: bilateral total knee replacements -: bilateral carpal tunnel sx -: c section -: thyroidectomy -: neck fusion -: PD Cath then removed -: Cholecystectomy Psychosocial/ Personal History: Patient lives at [facility]. - Family History Mother Medical History: Heart disease, Hypertension, Lung disease, Cancer Notes: breast ca Father Medical History: Heart disease, Hypertension, Other (see notes) Notes: Alzheimer's - Social History Smoking Status: Unknown if ever smoked Alcohol use: No CD- Drugs: No Caffeine use: No Place of Residence: Assisted Review of Systems 10-point ROS is otherwise unremarkable Integumentary: Other (right heel wound) Physical Examination Temp Pulse Resp BP Pulse Ox 97.0 F 88 14 178/88 H 96 10/18/22 08:00 10/18/22 08:00 10/18/22 08:00 10/18/22 08:00 10/18/22 08:00 General: Alert, In no apparent distress, Oriented x3 HEENT: Atraumatic, Normocephalic Neck: Supple, JVD not distended Respiratory: Normal air movement, Diminished (mild) Cardiovascular: No edema, Normal S1 S2 Gastrointestinal: Normal bowel sounds, Soft and benign, Non-distended Musculoskeletal: No clubbing, No swelling Integumentary: Pressure ulcer (right heel) Neurological: Normal speech, Normal tone, Normal affect Laboratory Data - reviewed Microbiology data - 10/13 Blood culture: no growth to date - 10/17 Urine culture: pending Imagings Data: - reviewed Medication List Reviewed: yes Conclusions/Impression: Problem List - ESRD - Diabetes mellitus type II - CAD - Anemia of chronic disease - Hypothyroidism - Hypertension - Diabetic Ulcer of Right Heel - UTI Right Heel pressure injury vs diabetic ulcer - Unstageable - Continue current wound care: apply colleganse (Santyl) ointment to wound, cover with vashe soaked gauze and wrap with dry kerlix wrap. Daily and PRN. - Offload pressure UTI - 10/17 urine culture: pending - UA with yeast and bacteria - currently on IV micafumgin (10/17) and vancomycin (10/16) - no leukocytosis, afebrile - 10/13 blood culture: no growth Recommendations - continue micafungin and vancomycin for now - awaiting urine culture - wound culture
[2022-10-18] MEDS: DOCUSATE NA 100 MG CAP PO SCH ×2 (09:28→21:13)
[2022-10-18] MEDS: MICAFUNGIN SODIUM 100 MG in NA CHLORIDE 0.9% 100 ML IV SCH (09:28)
[2022-10-18] MEDS: BUSPIRONE HCL 5 MG TABLET PO SCH ×2 (09:28→21:13)
[2022-10-18] MEDS: THIAMINE HCL 100 MG TABLET PO SCH ×2 (09:28→21:13)
[2022-10-18] MEDS: ASPIRIN EC 81 MG TAB PO SCH (09:28)
[2022-10-18] MEDS: CLOPIDOGREL 75 MG TABLET PO SCH (09:28)
[2022-10-18] MEDS: PANTOPRAZOLE 40MG TABLET PO SCH ×2 (09:28→17:12)
[2022-10-18] MEDS: BUPROPRION HCL S.R. 150MG TAB PO SCH (10:17)
--- NOTE | 2022-10-18 12:38 | PN ---
Date of Progress Note: 10/18/2022 Subjective: The patient was admitted with wound infection and UTI. The patient was started on treatment and continued on wound care. Her wound is not healing. Physical Examination: Vital Signs: Blood pressure 178/88, pulse of 88, afebrile. Chest: Clear to auscultation. Heart: S1, S2. Systolic murmur. Abdomen: Soft, nontender. Extremity: No edema. Multiple skin lesions, does not look as calciphylaxis. Dressing on both feet. Neurologic: Alert. No focality. Laboratory Data: Hemoglobin 9.2. Sodium 142, potassium 3.6, bicarb 29, BUN 20, creatinine 2.2, calcium 9.4. Current Medications: The patient on include micafungin, aspirin, vancomycin, midodrine 5 mg p.r.n., Plavix, Epogen, atorvastatin, metoprolol 12 b.i.d., bupropion, Geodon, Ensure, pantoprazole. Assessment And Plan: 1. End-stage renal disease, normal volume. I am going to continue the patient on dialysis. The patient is going to be scheduled for dialysis tomorrow as TTS and we will follow up the patient. 2. Hypertension, currently hypotension, depends on midodrine. We will continue midodrine. 3. Urinary tract infection. Continue micafungin. Follow up with ID. 4. Hypokalemia. The patient is going to be dialyzed on high potassium bath. 5. Hyponatremia, will be corrected with dialysis. 6. Wound infection, not appropriately healing. We will consider LTAC. We will follow up with primary. 7. Diabetes as by primary. Time spent examining the patient [id number], reviewing data, lab and radiology, placing order, discussing the case with the patient, discussing the case with the restaurant hourly team member including nurse more than 35 minutes CR Voice ID: [id number] Report ID: [id number] ASHOK
--- NOTE | 2022-10-18 16:54 | CON ---
Date of Consultation: 10/17/[address] An on 10/13/2022. I saw the patient 10/17/2022. Reason For Consultation: History of coronary artery disease. History Of Present Illness: Mr. Gallego is 67, underwent angioplasty and stent of the right coronary artery in August 2022. She was supposed to have some more work on LAD, but in the interim, she got admitted to [facility] with other issues and as far as we know, she did not have an LAD s tent done at that point. No cardiac history since then and certainly no cardiac symptoms. She has a history of end-stage renal disease, hypertension, diabetes, dyslipidemia, was admitted to the hospit al with altered mental status, hypokalemia, hypoglycemia, mildly elevated troponin, and we were consu lted. No cardiac symptoms. Allergies: SHE IS ALLERGIC TO CODEINE, TAPE, AND PHENERGAN. Review of Systems: Negative. Social History: Negative. Family History: Noncontributory. Medications: At home include Brilinta, midodrine, metoprolol, thyroid medicine, Lipitor, Norvasc, in sulin, Lasix, and lisinopril. She is also on metoprolol and midodrine as stated earlier. Physical Examination: Vital Signs: Stable, sinus rhythm, afebrile. HEENT: Negative. Neck: Supple with no bruit. Chest: Clear. Cardiac: Revealed a regular rhythm and rate. No murmurs, gallops, or rubs. Abdomen: Benign. Extremities: Revealed no clubbing, cyanosis, or edema. Psychiatric: On mental status, Ms. Gallego is difficult to arouse, but alert and oriented to name and place when she did wake up. No acute distress. Diagnostic Data: Her D-dimer was normal. Troponin was very mildly elevated and was trending down. Echocardiogram recently showed diastolic dysfunction with an ejection fraction of 55%. Assessment And Plan: We will feel that the elevated troponin, demand ischemia secondary to end-stage renal disease, hypoglycemia, hypokalemia, maybe diastolic, not an acute coronary syndrome. We will continue present regimen. I think she may be ready to be transferred to a regular floor. I will dis cuss her case with Dr. Lantigua. Check my records in the office regarding her previous history and hop efully make an arrangement for her to have her LAD taking care in the near future. I will sign off h er case. ROHIT/RENÉ Voice ID: [id number] Report ID: [id number]
--- NOTE | 2022-10-18 20:38 | P.PN ---
Subjective Date of Service: 10/18/22 Primary Care Provider: Marshall Chief Complaint: Altered mental status Overnight, she had an episode of hallucinations, where she reported seeing worms on the zavala. She states that she has full memory of this event. This morning, she is calm and cooperative. She is no longer hallucinating. She is alert and oriented x 3. She denies any chest pain, headaches, shortness of breath, or abdominal pain. Review of Systems 10-point ROS is otherwise unremarkable Neurological: Confusion (improved) Physical Examination - Vital Signs Temperature: 97.5 F Blood Pressure: 167/76 Pulse: 86 Respirations: 14 Pulse Ox (%): 96 - Studies Microbiology Data (last 24 hrs): 10/13/22 10:53 Blood - Blood Aerobic Blood Culture - Final No growth in 5 days. 10/13/22 10:53 Blood - Blood Anaerobic Blood Culture - Final No growth in 5 days. Medications List Reviewed: Yes Assessment And Plan - Plan - Physical Exam General: Alert, In no apparent distress, Oriented x3 HEENT: Atraumatic, Mucous membr. moist/pink, Sclerae nonicteric Neck: JVD not distended Respiratory: Clear to auscultation bilaterally, Normal air movement Cardiovascular: Regular rate/rhythm, No murmurs, Edema (trace BLE) Gastrointestinal: Normal bowel sounds, Soft, Non-distended, No tenderness Musculoskeletal: No clubbing Integumentary: Pressure ulcer (bilateral heels (right > left)) Neurological: Normal speech, Normal affect # Acute Toxic Metabolic Encephalopathy possibly secondary to Fungal Urinary Tract Infection vs - improved # Recent Admission for Septic Shock likely secondary to Methicillin-Sensitive Staphyloccoccus Aureus and Pseudomonas Aeruginosa bilateral Diabetic/Pressure Heel Ulcers with Methicillin-Sensitive Staphyloccoccus Aureus Bacteremia - Evaluation thus far: - Labs = Na+ 142, Ca2+ 9.7, CO2 26, Glucose 51 on presentation, Ammonia 36, BUN 29, Vitamin B12 1411, TSH 9.65 - ABG = pH 7.40, PCO2 39.3, PO2 70.4 - Blood cultures x 2 drawn - Urinalysis = 1+ ketones, 2+ blood, 500 leukocyte esterase, >50 RBCs, >50 WBCs, 20-50 bacteria, moderate yeast, 3+ yeast - Chest x-ray = "no acute abnormalities displayed" - Right foot x-ray = "significant soft tissue thinning and ulceration is seen adjacent to the heel. Moderate calcaneal spurs. No gross fracture. Significant atherosclerosis. Radiographic evidence of osteomyelitis not seen, however MRI is more sensitive." - CT head = "no acute intracranial abnormality is seen" - MRI brain = "negative for acute CVA or other acute intracranial process." - Management plan: - Multiple medications on MAR may contribute to AMS (buspirone, bupropion, PRN lorazepam, PRN ziprasidone, hydrocodone) - Consulted Psychiatry and spoke with Dr. Morse - recommendations ap preciated - Consulted Infectious Diseases and General Surgery in regards to heel ulcer - recommendations appreciated - Continue Vancomycin, Micafungin, and wound care - Discontinued PRN lorazepam, ziprasidone - Serial neuro checks # Suspect Type II Non-ST Segment Elevation Myocardial Infarction (Demand Ischemia) due to above # Coronary Artery Disease s/p PCI (08/11/2022) # Hypertension # Hyperlipidemia Recently underwent PCI to RCA on 08/11/2022. Plan was for staged PCI given advanced LAD disease. - Evaluation thus far: - EKG: reportedly without STEMI, trend - Serial troponin: 68.7 -> 64.6 - Transthoracic echocardiogram (Aug 2022) = "1. normal left ventricular ejection fraction 50-55% 2. mild mitral regurgitation 3. mild tricuspid regurgitation 4. moderate diastolic dysfunction 5. right ventricular systolic pressure is elevated 60-65 mmHg" - Management plan: - Consult Cardiology and spoke with Dr. Uribe - recommendations appreciated - Continue home aspirin, metoprolol, lisinopril, clopidogrel, atorvastatin # Hypoglycemia in Type II Diabetes Mellitus - PRN D50W for hypoglycemia # End-Stage Renal Disease on MWF iHD # Anemia of Chronic Kidney Disease - Nephrology consulted - recommendations appreciated # Hypothyroidism - Continue home levothyroxine # Hypokalemia - resolved Abran An M.D.
[2022-10-18] MEDS: ATORVASTATIN 40 MG TAB PO SCH (21:13)
[2022-10-19] MEDS: ONDANSETRON 4 MG/2 ML VIAL IV PRN ×2 (00:35→04:47)
[2022-10-19] MEDS: LEVOTHYROXINE SOD 0.075 MG TAB PO SCH (05:59)
[2022-10-19] MEDS: METOPROLOL XL 25 MG TAB PO SCH ×2 (05:59→16:56)
[2022-10-19] MEDS: INSULIN -REGULAR HUMAN 50 UNIT/0.5 ML ML SQ SCH ×4 (07:30→21:21)
[2022-10-19] MEDS: DOCUSATE NA 100 MG CAP PO SCH ×2 (09:00→21:21)
[2022-10-19] MEDS: ENSURE MAX PROTEIN 330 ML LIQUID PO SCH ×2 (09:00→21:00)
[2022-10-19] MEDS: COLLAGENASE 30 GM OINTMENT TOP SCH (09:00)
--- NOTE | 2022-10-19 09:26 | P.PN ---
Subjective Date of Service: 10/19/22 Primary Care Provider: Marshall Chief Complaint: Altered mental status Subjective: No new changes, No C/O voiced, Improving Patient sitting in bed, awake and oriented x3, in good spirits. No complaints at this time. No acute events reported overnight. Physical Examination - Vital Signs Temperature: 97.8 F Blood Pressure: 178/86 Pulse: 95 Respirations: 18 Pulse Ox (%): 94 - Physical Exam General: Alert, In no apparent distress, Oriented x3 HEENT: Atraumatic, Normocephalic Neck: Supple, JVD not distended Respiratory: Normal air movement Cardiovascular: No edema Gastrointestinal: Normal bowel sounds, Soft and benign, Non-distended Musculoskeletal: No clubbing, No swelling Integumentary: No rashes, No breakdown, Diabetic ulcer (right heel) Neurological: Normal speech, Normal tone, Normal affect - Studies Laboratory Data - reviewed Microbiology Data (last 24 hrs): - 10/13 Blood culture: no growth to date - 10/17 Urine culture: mixed fercho Imagings Data: - reviewed Medications List Reviewed: Yes Assessment And Plan - Plan Problem List - ESRD - Diabetes mellitus type II - CAD - Anemia of chronic disease - Hypothyroidism - Hypertension - Diabetic Ulcer of Right Heel - UTI Right Heel Diabetic Ulcer vs pressure injury - Unstageable - Recent Admission in August 10 heel ulcer culture with Methicillin- Sensitive Staphyloccoccus Aureus and Pseudomonas Aeruginosa - previous debridement to right heel during August admission - wound care per surgery team - currently on IV vancomycin (10/16) UTI - 10/13 Urinalysis: 2+ blood, 500 leukocyte esterase, >50 RBCs, >50 WBCs, 20-50 bacteria, moderate yeast, 3+ yeast - Currently on IV micafungin - 10/17 urine culture: mixed fercho - 10/13 blood culture: no growth - no leukocytosis, afebrile Recommendations - Discontinue IV micafungin - Continue IV vancomycin for now (10/16-) - Continue current wound care per surgery team - Offload pressure on heel ID will follow patient and monitor for signs of infection Case discussed with Mariaa Farrar
[2022-10-19] MEDS: BUPROPRION HCL S.R. 150MG TAB PO SCH (10:04)
[2022-10-19] MEDS: MICAFUNGIN SODIUM 100 MG in NA CHLORIDE 0.9% 100 ML IV SCH (10:04)
[2022-10-19] MEDS: ASPIRIN EC 81 MG TAB PO SCH (10:05)
[2022-10-19] MEDS: BUSPIRONE HCL 5 MG TABLET PO SCH ×2 (10:05→21:21)
[2022-10-19] MEDS: THIAMINE HCL 100 MG TABLET PO SCH ×2 (10:05→21:21)
[2022-10-19] MEDS: CLOPIDOGREL 75 MG TABLET PO SCH (10:05)
[2022-10-19] MEDS: PANTOPRAZOLE 40MG TABLET PO SCH ×2 (10:05→16:21)
--- NOTE | 2022-10-19 14:48 | PN ---
Date of Progress Note: 10/19/2022 Subjective: The patient was admitted with foot infection and sepsis with septic shock. Physical Examination: Vital Signs: Blood pressure 153/79, pulse of 94, afebrile. Chest: Clear to auscultation. Heart: S1, S2. Systolic murmur. Abdomen: Soft, nontender. Extremity: Cast on the right with dressing on both feet. Laboratory Data: Hemoglobin 9.2. Sodium 142, potassium 4, bicarb 27, BUN 42, creatinine 3.2, calcium 9.7. Current Medications: The patient on include; 1. Aspirin. 2. Vancomycin. 3. Midodrine 5 mg. 4. Plavix. 5. Epogen. 6. Metoprolol 12.5. 7. Atorvastatin. 8. Buspirone. 9. Geodon. 10. Pantoprazole. Assessment And Plan: 1. End-stage renal disease. Normal volume currently. We will continue the patient on dialysis TTS. Status post dialysis today. 2. Hypertension, currently low blood pressure. Just recovered from shock. Continue midodrine. 3. Osteomyelitis with foot infection. Continue wound care. Continue current antibiotic. 4. Urinary tract infection. Continue current micafungin. We will follow up with ID. 5. hypo K / Hypo Na will be corrected with dialysis. 6. Anemia of chronic kidney disease. Continue XENIA. 7. Over volume, status post dialysis, currently normal volume. We will follow up back to schedule TTS. Time spent examining the patient [id number], reviewing data, lab and radiology, placing order, discussing the case with the patient, discussing the case with the produce production team member including nurse more than 35 minutes CR Voice ID: [id number] Report ID: [id number] ASHOK
[2022-10-19] MEDS: EPOETIN ALFA 10,000 UNIT/ML VIAL IV SCH (16:00)
--- NOTE | 2022-10-19 20:37 | P.PN ---
Subjective Date of Service: 10/19/22 Primary Care Provider: Marshall Chief Complaint: Altered mental status No acute events overnight. Her mental status has improved significantly and she has had no recurrent episodes of hallucinations. She believes that the micafungin is what helped. She states that she feels well and ready to be discharged back to SNF once accepted. She denies any chest pain, headaches, shortness of breath, or abdominal pain. Review of Systems 10-point ROS is otherwise unremarkable General: Weakness (generalized) Physical Examination - Vital Signs Temperature: 97.8 F Blood Pressure: 178/86 Pulse: 95 Respirations: 18 Pulse Ox (%): 94 - Studies Medications List Reviewed: Yes Assessment And Plan - Plan - Physical Exam General: Alert, In no apparent distress, Oriented x3 HEENT: Atraumatic, Mucous membr. moist/pink, Sclerae nonicteric Neck: JVD not distended Respiratory: Clear to auscultation bilaterally, Normal air movement Cardiovascular: Regular rate/rhythm, No murmurs, Edema (trace BLE) Gastrointestinal: Normal bowel sounds, Soft, Non-distended, No tenderness Musculoskeletal: No clubbing Integumentary: Pressure ulcer (bilateral heels (right > left)) Neurological: Normal speech, Normal affect # Acute Toxic Metabolic Encephalopathy possibly secondary to Fungal Urinary Tract Infection vs - improved # Recent Admission for Septic Shock likely secondary to Methicillin-Sensitive Staphyloccoccus Aureus and Pseudomonas Aeruginosa bilateral Diabetic/Pressure Heel Ulcers with Methicillin-Sensitive Staphyloccoccus Aureus Bacteremia - Evaluation thus far: - Labs = Na+ 142, Ca2+ 9.7, CO2 26, Glucose 51 on presentation, Ammonia 36, BUN 29, Vitamin B12 1411, TSH 9.65 - ABG = pH 7.40, PCO2 39.3, PO2 70.4 - Blood cultures x 2 drawn - Urinalysis = 1+ ketones, 2+ blood, 500 leukocyte esterase, >50 RBCs, >50 WBCs, 20-50 bacteria, moderate yeast, 3+ yeast - Chest x-ray = "no acute abnormalities displayed" - Right foot x-ray = "significant soft tissue thinning and ulceration is seen adjacent to the heel. Moderate calcaneal spurs. No gross fracture. Significant atherosclerosis. Radiographic evidence of osteomyelitis not seen, however MRI is more sensitive." - CT head = "no acute intracranial abnormality is seen" - MRI brain = "negative for acute CVA or other acute intracranial process." - Management plan: - Multiple medications on MAR may contribute to AMS (buspirone, bupropion, PRN lorazepam, PRN ziprasidone, hydrocodone) - Consulted Psychiatry and spoke with Dr. Morse - recommendations appreciated - Consulted Infectious Diseases and General Surgery in regards to heel ulcer - recommendations appreciated - Continue Vancomycin, Micafungin, and wound care - Discontinued PRN lorazepam, ziprasidone - Serial neuro checks # Suspect Type II Non-ST Segment Elevation Myocardial Infarction (Demand Ischemia) due to above # Coronary Artery Disease s/p PCI (08/11/2022) # Hypertension # Hyperlipidemia Recently underwent PCI to RCA on 08/11/2022. Plan was for staged PCI given advanced LAD disease. - Evaluation thus far: - EKG: reportedly without STEMI, trend - Serial troponin: 68.7 -> 64.6 - Transthoracic echocardiogram (Aug 2022) = "1. normal left ventricular ejection fraction 50-55% 2. mild mitral regurgitation 3. mild tricuspid regurgitation 4. moderate diastolic dysfunction 5. right ventricular systolic pressure is elevated 60-65 mmHg" - Management plan: - Consult Cardiology and spoke with Dr. Uribe - recommendations appreciated - Continue home aspirin, metoprolol, lisinopril, clopidogrel, atorvastatin # Hypoglycemia in Type II Diabetes Mellitus - PRN D50W for hypoglycemia # End-Stage Renal Disease on MWF iHD # Anemia of Chronic Kidney Disease - Nephrology consulted - recommendations appreciated # Hypothyroidism - Continue home levothyroxine # Hypokalemia - resolved I spoke with Dr. Longoria, who will be managing her wounds at SNF. He feels comfortable with the level of wound care she will require at the SNF. CM consulted for assistance with placement. Abran An M.D.
[2022-10-19] MEDS: ATORVASTATIN 40 MG TAB PO SCH (21:21)
[2022-10-20 04:19] LABS: Potassium 3.9 mEq/L (3.5-5.1)
[2022-10-20 05:24] VITALS: BMI 28.7
[2022-10-20] MEDS: LEVOTHYROXINE SOD 0.075 MG TAB PO SCH (05:43)
[2022-10-20] MEDS: METOPROLOL XL 25 MG TAB PO SCH ×2 (05:43→17:42)
[2022-10-20] MEDS ORDERED: POTASSIUM CL SA 10 MEQ TAB PO ONE (06:00)
[2022-10-20] MEDS: COLLAGENASE 30 GM OINTMENT TOP SCH (09:00)
[2022-10-20] MEDS: ENSURE MAX PROTEIN 330 ML LIQUID PO SCH ×2 (09:00→20:57)
--- NOTE | 2022-10-20 09:20 | P.PN ---
Date of Service: 10/20/22 Subjective: No new changes, No C/O voiced, Improving Patient sitting in bed, awake and oriented x3. No complaints at this time. No acute events reported overnight. Pending SNF approval. Physical Examination - Vital Signs Temp Pulse Resp BP Pulse Ox 97.6 F 92 H 14 150/79 H 90 L 10/20/22 08:00 10/20/22 08:00 10/20/22 08:00 10/20/22 08:00 10/20/22 08:00 - Physical Exam General: Alert, In no apparent distress, Oriented x3 HEENT: Atraumatic, Normocephalic Neck: Supple, JVD not distended Respiratory: Normal air movement; breathing comfortably on room air Cardiovascular: No edema, regular rate and rhythm Gastrointestinal: Normal bowel sounds, Soft and benign, Non-distended Musculoskeletal: No clubbing, No swelling Integumentary: No rashes, No breakdown, Diabetic ulcer (right heel) Neurological: Normal speech, Normal tone, Normal affect - Studies Laboratory Data - reviewed Microbiology Data (last 24 hrs): - 10/13 Blood culture: no growth to date - 10/17 Urine culture: mixed fercho Imagings Data: - XR Foot 10/14: "Significant soft tissue thinning and ulceration is seen adjacent to the heel. Moderate calcaneal spurs. No gross fracture. Significant atherosclerosis. Radiographic evidence of osteomyelitis not seen, however MRI is more sensitive." - XR Chest 10/12: "No acute abnormalities displayed." Medications List Reviewed: Yes Assessment And Plan Problem List - ESRD - Diabetes mellitus type II - CAD - Anemia of chronic disease - Hypothyroidism - Hypertension - Diabetic Ulcer of Right Heel - UTI Right Heel Diabetic Ulcer vs pressure injury - Unstageable - Recent Admission in August 10 heel ulcer culture with Methicillin- Sensitive Staphyloccoccus Aureus and Pseudomonas Aeruginosa - previous debridement to right heel during August admission - XR foot 10/14 "Radiographic evidence of osteomyeltis not seen, however MRI is more sensitive" - wound care per surgery team - currently on IV vancomycin (10/16) UTI - 10/13 Urinalysis: 2+ blood, 500 leukocyte esterase, >50 RBCs, >50 WBCs, 20-50 bacteria, moderate yeast, 3+ yeast - 10/17 urine culture: mixed fercho - Previously on IV micafungin (10/17-10/19) - 10/13 blood culture: no growth - no leukocytosis, afebrile Recommendations - Consider d/c Vancomycin; no evidence of active infection at this time - Continue wound care per surgery team and offload pressure - Pending SNF approval, where she will be seen by Dr. Longoria for wound care ID will follow patient and monitor for signs of infection Case discussed with Mariaa Farrar
[2022-10-20] MEDS: CLOPIDOGREL 75 MG TABLET PO SCH (09:35)
[2022-10-20] MEDS: ASPIRIN EC 81 MG TAB PO SCH (09:35)
[2022-10-20] MEDS: DOCUSATE NA 100 MG CAP PO SCH ×2 (09:35→20:56)
[2022-10-20] MEDS: THIAMINE HCL 100 MG TABLET PO SCH ×2 (09:35→20:55)
[2022-10-20] MEDS: BUSPIRONE HCL 5 MG TABLET PO SCH ×2 (09:36→20:56)
[2022-10-20] MEDS: BUPROPRION HCL S.R. 150MG TAB PO SCH (09:36)
[2022-10-20] MEDS: PANTOPRAZOLE 40MG TABLET PO SCH ×2 (09:36→17:42)
[2022-10-20] MEDS: INSULIN -REGULAR HUMAN 50 UNIT/0.5 ML ML SQ SCH ×4 (09:37→20:56)
--- NOTE | 2022-10-20 14:41 | P.PN ---
Subjective Date of Service: 10/20/22 Primary Care Provider: Marshall Chief Complaint: Altered mental status Subjective: No new changes Physical Examination - Vital Signs Temperature: 97.6 F Blood Pressure: 150/79 Pulse: 92 Respirations: 14 Pulse Ox (%): 90 - Physical Exam General: Other (appears as her stated age) HEENT: Atraumatic, Normocephalic Neck: Supple, JVD not distended Respiratory: Other (symmetric chest expansion) Cardiovascular: No rubs, No murmurs Gastrointestinal: Soft and benign, No guarding Musculoskeletal: No clubbing Integumentary: No warmth Neurological: Normal speech, Normal tone Urinary: Other (no bladder distention) External genitalia: Deferred Rectal: Deferred - Studies Medications List Reviewed: Yes Assessment And Plan - Plan 1. End-stage renal disease. She received HD yesterday. HD tomorrow per qTTS sked. 2. Hypertension, now low blood pressure. Just recovered from shock. Continue midodrine. 3. Osteomyelitis with foot infection. Continue wound care. Continue current antibiotic. 4. Urinary tract infection. Continue current micafungin. We will follow up with ID. 5. Volume overload. HD as above. 6. Anemia of chronic kidney disease. Continue XENIA. 7. Renal osteodystrophy. Monitor serum calcium and phosphorus. Physician Review: Patient Assessed, Agree with Above Assessment and Plan
--- NOTE | 2022-10-20 19:20 | P.PN ---
Subjective Date of Service: 10/20/22 Primary Care Provider: Marshall Chief Complaint: Altered mental status No acute events overnight. She denies any symptoms this morning. She states that she feels well and would like to be discharged back to SNF, once accepted. She denies any chest pain, headaches, shortness of breath, or abdominal pain. Review of Systems 10-point ROS is otherwise unremarkable Musculoskeletal: Other (bilateral heel ulcers) Physical Examination - Vital Signs Temperature: 97.4 F Blood Pressure: 142/81 Pulse: 84 Respirations: 14 Pulse Ox (%): 98 - Studies Medications List Reviewed: Yes Assessment And Plan - Plan - Physical Exam General: Alert, In no apparent distress, Oriented x3 HEENT: Atraumatic, Mucous membr. moist/pink, Sclerae nonicteric Neck: JVD not distended Respiratory: Clear to auscultation bilaterally, Normal air movement Cardiovascular: Regular rate/rhythm, No murmurs, Edema (trace BLE) Gastrointestinal: Normal bowel sounds, Soft, Non-distended, No tenderness Musculoskeletal: No clubbing Integumentary: Pressure ulcer (bilateral heels (right > left)) Neurological: Normal speech, Normal affect # Acute Toxic Metabolic Encephalopathy possibly secondary to Fungal Urinary Tract Infection vs - improved # Recent Admission for Septic Shock likely secondary to Methicillin-Sensitive Staphyloccoccus Aureus and Pseudomonas Aeruginosa bilateral Diabetic/Pressure Heel Ulcers with Methicillin-Sensitive Staphyloccoccus Aureus Bacteremia - Evaluation thus far: - Labs = Na+ 142, Ca2+ 9.7, CO2 26, Glucose 51 on presentation, Ammonia 36, BUN 29, Vitamin B12 1411, TSH 9.65 - ABG = pH 7.40, PCO2 39.3, PO2 70.4 - Blood cultures x 2 drawn - Urinalysis = 1+ ketones, 2+ blood, 500 leukocyte esterase, >50 RBCs, >50 WBCs, 20-50 bacteria, moderate yeast, 3+ yeast - Chest x-ray = "no acute abnormalities displayed" - Right foot x-ray = "significant soft tissue thinning and ulceration is seen adjacent to the heel. Moderate calcaneal spurs. No gross fracture. Significant atherosclerosis. Radiographic evidence of osteomyelitis not seen, however MRI is more sensitive." - CT head = "no acute intracranial abnormality is seen" - MRI brain = "negative for acute CVA or other acute intracranial process." - Management plan: - Multiple medications on MAR may contribute to AMS (buspirone, bupropion, PRN lorazepam, PRN ziprasidone, hydrocodone) - Consulted Psychiatry and spoke with Dr. Morse - recommendations appreciated - Consulted Infectious Diseases and General Surgery in regards to heel ulcer - recommendations appreciated - Continue Vancomycin, Micafungin, and wound care - Discontinued PRN lorazepam, ziprasidone - Serial neuro checks # Suspect Type II Non-ST Segment Elevation Myocardial Infarction (Demand Ischemia) due to above # Coronary Artery Disease s/p PCI (08/11/2022) # Hypertension # Hyperlipidemia Recently underwent PCI to RCA on 08/11/2022. Plan was for staged PCI given advanced LAD disease. - Evaluation thus far: - EKG: reportedly without STEMI, trend - Serial troponin: 68.7 -> 64.6 - Transthoracic echocardiogram (Aug 2022) = "1. normal left ventricular ejection fraction 50-55% 2. mild mitral regurgitation 3. mild tricuspid regurgitation 4. moderate diastolic dysfunction 5. right ventricular systolic pressure is elevated 60-65 mmHg" - Management plan: - Consult Cardiology and spoke with Dr. Uribe - recommendations appreciated - Continue home aspirin, metoprolol, lisinopril, clopidogrel, atorvastatin # Hypoglycemia in Type II Diabetes Mellitus - PRN D50W for hypoglycemia # End-Stage Renal Disease on MWF iHD # Anemia of Chronic Kidney Disease - Nephrology consulted - recommendations appreciated # Hypothyroidism - Continue home levothyroxine # Hypokalemia - resolved I spoke with Dr. Longoria, who will be managing her wounds at SNF. He feels comfortable with the level of wound care she will require at the SNF. CM consulted for assistance with placement. 10/20/2022 - Repeat urinalysis today - Disposition pending PT eval and SNF acceptance. Abran An M.D.
[2022-10-20] MEDS: ATORVASTATIN 40 MG TAB PO SCH (20:55)
[2022-10-21 03:08] LABS: Potassium 4.2 mEq/L (3.5-5.1)
[2022-10-21] MEDS: METOPROLOL XL 25 MG TAB PO SCH ×2 (05:37→17:03)
[2022-10-21] MEDS: LEVOTHYROXINE SOD 0.075 MG TAB PO SCH (05:37)
[2022-10-21] MEDS: BUSPIRONE HCL 5 MG TABLET PO SCH ×2 (08:52→20:24)
[2022-10-21] MEDS: ASPIRIN EC 81 MG TAB PO SCH (08:52)
[2022-10-21] MEDS: DOCUSATE NA 100 MG CAP PO SCH ×2 (08:52→20:24)
[2022-10-21] MEDS: BUPROPRION HCL S.R. 150MG TAB PO SCH (08:52)
[2022-10-21] MEDS: THIAMINE HCL 100 MG TABLET PO SCH ×2 (08:52→20:24)
[2022-10-21] MEDS: INSULIN -REGULAR HUMAN 50 UNIT/0.5 ML ML SQ SCH ×4 (08:52→21:40)
[2022-10-21] MEDS: CLOPIDOGREL 75 MG TABLET PO SCH (08:52)
[2022-10-21] MEDS: PANTOPRAZOLE 40MG TABLET PO SCH ×2 (08:52→17:03)
[2022-10-21] MEDS: COLLAGENASE 30 GM OINTMENT TOP SCH (08:53)
[2022-10-21] MEDS: ENSURE MAX PROTEIN 330 ML LIQUID PO SCH ×2 (08:53→20:25)
[2022-10-21] MEDS: EPOETIN ALFA 10,000 UNIT/ML VIAL IV SCH (11:59)
--- NOTE | 2022-10-21 18:55 | P.PN ---
Subjective Date of Service: 10/21/22 Primary Care Provider: Marshall Chief Complaint: Altered mental status No acute events overnight. She states that she feels well this morning. Her right heel wound looks slightly worse this morning. Dr. Peterson planning for debridement on 10/23/2022. She denies any chest pain, headaches, shortness of breath, or abdominal pain. Review of Systems 10-point ROS is otherwise unremarkable Integumentary: Other (pressure wounds to heels) Physical Examination - Vital Signs Temperature: 97.5 F Blood Pressure: 111/61 Pulse: 78 Respirations: 14 Pulse Ox (%): 100 - Studies Medications List Reviewed: Yes Assessment And Plan - Plan - Physical Exam General: Alert, In no apparent distress, Oriented x3 HEENT: Atraumatic, Mucous membr. moist/pink, Sclerae nonicteric Neck: JVD not distended Respiratory: Clear to auscultation bilaterally, Normal air movement Cardiovascular: Regular rate/rhythm, No murmurs, Edema (trace BLE) Gastrointestinal: Normal bowel sounds, Soft, Non-distended, No tenderness Musculoskeletal: No clubbing Integumentary: Pressure ulcer (bilateral heels (right > left)) Neurological: Normal speech, Normal affect # Acute Toxic Metabolic Encephalopathy possibly secondary to Fungal Urinary Tract Infection vs - improved # Recent Admission for Septic Shock likely secondary to Methicillin-Sensitive Staphyloccoccus Aureus and Pseudomonas Aeruginosa bilateral Diabetic/Pressure Heel Ulcers with Methicillin-Sensitive Staphyloccoccus Aureus Bacteremia - Evaluation thus far: - Labs = Na+ 142, Ca2+ 9.7, CO2 26, Glucose 51 on presentation, Ammonia 36, BUN 29, Vitamin B12 1411, TSH 9.65 - ABG = pH 7.40, PCO2 39.3, PO2 70.4 - Blood cultures x 2 drawn - Urinalysis = 1+ ketones, 2+ blood, 500 leukocyte esterase, >50 RBCs, >50 WBCs, 20-50 bacteria, moderate yeast, 3+ yeast - Chest x-ray = "no acute abnormalities displayed" - Right foot x-ray = "significant soft tissue thinning and ulceration is seen adjacent to the heel. Moderate calcaneal spurs. No gross fracture. Significant atherosclerosis. Radiographic evidence of osteomyelitis not seen, however MRI is more sensitive." - CT head = "no acute intracranial abnormality is seen" - MRI brain = "negative for acute CVA or other acute intracranial process." - Management plan: - Multiple medications on MAR may contribute to AMS (buspirone, bupropion, PRN lorazepam, PRN ziprasidone, hydrocodone) - Consulted Psychiatry and spoke with Dr. Morse - recommendations appreciated - Consulted Infectious Diseases and General Surgery in regards to heel ulcer - recommendations appreciated - Dr. Peterson planning to debride wound on 10/23/2022 - Continue Vancomycin, Micafungin, and wound care - Discontinued PRN lorazepam, ziprasidone - Serial neuro checks # Suspect Type II Non-ST Segment Elevation Myocardial Infarction (Demand Ischemia) due to above # Coronary Artery Disease s/p PCI (08/11/2022) # Hypertension # Hyperlipidemia Recently underwent PCI to RCA on 08/11/2022. Plan was for staged PCI given advanced LAD disease. - Evaluation thus far: - EKG: reportedly without STEMI, trend - Serial troponin: 68.7 -> 64.6 - Transthoracic echocardiogram (Aug 2022) = "1. normal left ventricular ejection fraction 50-55% 2. mild mitral regurgitation 3. mild tricuspid regurgitation 4. moderate diastolic dysfunction 5. right ventricular systolic pressure is elevated 60-65 mmHg" - Management plan: - Consult Cardiology and spoke with Dr. Uribe - recommendations appreciated - Continue home aspirin, metoprolol, lisinopril, clopidogrel, atorvastatin # Hypoglycemia in Type II Diabetes Mellitus - PRN D50W for hypoglycemia # End-Stage Renal Disease on MWF iHD # Anemia of Chronic Kidney Disease - Nephrology consulted - recommendations appreciated # Hypothyroidism - Continue home levothyroxine # Hypokalemia - resolved Abran An M.D.
--- NOTE | 2022-10-21 19:52 | PN ---
Date of Progress Note: 10/21/2022 Chief Complaint: End-stage renal disease. Subjective: The patient presented to the hospital with altered mental status. She was complaining o f hallucinations. The patient is undergoing dialysis for end-stage renal disease. She has complicat ed history of congestive heart failure, coronary artery disease, multiple interventions for coronary artery disease, and peripheral vascular disease. Currently, she is receiving treatment for urinary t ract infection. She is on micafungin and she has been followed by Infectious Disease. Review of Systems: Denies fever or chills. Physical Examination: Lungs: Diminished breath at bases. Heart: S1, S2. Abdomen: Soft. Extremities: No edema. Impression And Plan: 1.End-stage renal disease. The patient received dialysis today. Procedure was well tolerated. Con tinue p.o. fluid restriction. Low-sodium diet to prevent fluid overload. 2.Hypertension. Monitor blood pressure. The patient recovered from shock. Continue midodrine for blood pressure support to prevent intradialytic hypotension. 3.Osteomyelitis with foot infection. Continue wound care and continue current antibiotics. 4.Urinary tract infection. The patient is on micafungin per Infectious Disease. 5.Volume overload. The patient is improving with volemia status and she will continue p.o. fluid re striction. Plan is to advance ultrafiltration with dialysis to control fluid overload. 6.Anemia of chronic kidney disease. Continue XENIA. 7.Renal osteodystrophy. Monitor serum calcium and phosphorus level. EB/MODL Voice ID: [id number] Report ID: [id number]
[2022-10-21] MEDS: HYDROCODONE/APAP 7.5/325 MG TAB PO PRN (20:24)
[2022-10-21] MEDS: ATORVASTATIN 40 MG TAB PO SCH (20:24)
[2022-10-22 03:43] LABS: Absolute Lymphocytes (CBC) 0.9 K/uL (0.7-4.9); Hematocrit 24.8 % (36.0-45.0); Lymphocytes % 10.6 % (15.3-44.8); MCV 88.7 fL (80-100); MPV 7.2 fL (7.6-11.3)
[2022-10-22] MEDS: METOPROLOL XL 25 MG TAB PO SCH ×2 (06:14→17:15)
[2022-10-22] MEDS: LEVOTHYROXINE SOD 0.075 MG TAB PO SCH (06:14)
[2022-10-22] MEDS: COLLAGENASE 30 GM OINTMENT TOP SCH (09:00)
[2022-10-22] MEDS ORDERED: VANCOMYCIN 500 MG in NA CHLORIDE 0.9% 100 ML IVPB ONE (09:00)
[2022-10-22] MEDS: ENSURE MAX PROTEIN 330 ML LIQUID PO SCH ×2 (09:00→20:43)
[2022-10-22] MEDS: DOCUSATE NA 100 MG CAP PO SCH ×2 (09:40→20:43)
[2022-10-22] MEDS: THIAMINE HCL 100 MG TABLET PO SCH ×2 (09:40→20:43)
[2022-10-22] MEDS: ACETAMINOPHEN 500 MG TAB PO PRN (09:41)
[2022-10-22] MEDS: INSULIN -REGULAR HUMAN 50 UNIT/0.5 ML ML SQ SCH ×4 (09:41→20:39)
[2022-10-22] MEDS: PANTOPRAZOLE 40MG TABLET PO SCH ×2 (09:41→17:15)
[2022-10-22] MEDS: CLOPIDOGREL 75 MG TABLET PO SCH (09:41)
[2022-10-22] MEDS: BUSPIRONE HCL 5 MG TABLET PO SCH ×2 (09:41→20:43)
[2022-10-22] MEDS: ASPIRIN EC 81 MG TAB PO SCH (09:41)
[2022-10-22] MEDS: BUPROPRION HCL S.R. 150MG TAB PO SCH (09:55)
--- NOTE | 2022-10-22 18:37 | P.PN ---
Subjective Date of Service: 10/22/22 Primary Care Provider: Marshall Chief Complaint: Altered mental status No acute events overnight. She reports no concerns this morning. Planning for debridement of right heel tomorrow. She denies any chest pain, headaches, shortness of breath, or abdominal pain. Review of Systems 10-point ROS is otherwise unremarkable Musculoskeletal: Foot Pain (right) Physical Examination - Vital Signs Temperature: 97.4 F Blood Pressure: 135/73 Pulse: 84 Respirations: 16 Pulse Ox (%): 95 - Studies Medications List Reviewed: Yes Assessment And Plan - Plan - Physical Exam General: Alert, In no apparent distress, Oriented x3 HEENT: Atraumatic, Mucous membr. moist/pink, Sclerae nonicteric Neck: JVD not distended Respiratory: Clear to auscultation bilaterally, Normal air movement Cardiovascular: Regular rate/rhythm, No murmurs, Edema (trace BLE) Gastrointestinal: Normal bowel sounds, Soft, Non-distended, No tenderness Musculoskeletal: No clubbing Integumentary: Pressure ulcer (bilateral heels covered in clean dressing/SUJIT wrap) Neurological: Normal speech, Normal affect # Acute Toxic Metabolic Encephalopathy possibly secondary to Fungal Urinary Tract Infection vs -resolved # Recent Admission for Septic Shock likely secondary to Methicillin-Sensitive Staphyloccoccus Aureus and Pseudomonas Aeruginosa bilateral Diabetic/Pressure Heel Ulcers with Methicillin-Sensitive Staphyloccoccus Aureus Bacteremia - Evaluation thus far: - Labs = Na+ 142, Ca2+ 9.7, CO2 26, Glucose 51 on presentation, Ammonia 36, BUN 29, Vitamin B12 1411, TSH 9.65 - ABG = pH 7.40, PCO2 39.3, PO2 70.4 - Blood cultures x 2 drawn - Urinalysis = 1+ ketones, 2+ blood, 500 leukocyte esterase, >50 RBCs, >50 WBCs, 20-50 bacteria, moderate yeast, 3+ yeast - Chest x-ray = "no acute abnormalities displayed" - Right foot x-ray = "significant soft tissue thinning and ulceration is seen adjacent to the heel. Moderate calcaneal spurs. No gross fracture. Significant atherosclerosis. Radiographic evidence of osteomyelitis not seen, however MRI is more sensitive." - CT head = "no acute intracranial abnormality is seen" - MRI brain = "negative for acute CVA or other acute intracranial process." - Management plan: - Multiple medications on SEP may contribute to AMS (buspirone, bupropion, PRN lorazepam, PRN ziprasidone, hydrocodone) - Consulted Psychiatry and spoke with Dr. Morse - recommendations appreciated - Consulted Infectious Diseases and General Surgery in regards to heel ulcer - recommendations appreciated - Dr. Peterson planning to debride wound tomorrow - Continue Vancomycin and wound care - Discontinued PRN lorazepam, ziprasidone - Serial neuro checks # Suspect Type II Non-ST Segment Elevation Myocardial Infarction (Demand Ischemia) due to above # Coronary Artery Disease s/p PCI (08/11/2022) # Hypertension # Hyperlipidemia Recently underwent PCI to RCA on 08/11/2022. Plan was for staged PCI given advanced LAD disease. - Evaluation thus far: - EKG: reportedly without STEMI, trend - Serial troponin: 68.7 -> 64.6 - Transthoracic echocardiogram (Aug 2022) = "1. normal left ventricular ejection fraction 50-55% 2. mild mitral regurgitation 3. mild tricuspid regurgitation 4. moderate diastolic dysfunction 5. right ventricular systolic pressure is elevated 60-65 mmHg" - Management plan: - Consult Cardiology and spoke with Dr. Uribe - recommendations appreciated - Continue home aspirin, metoprolol, lisinopril, clopidogrel, atorvastatin # Hypoglycemia in Type II Diabetes Mellitus - PRN D50W for hypoglycemia # End-Stage Renal Disease on MWF iHD # Anemia of Chronic Kidney Disease - Nephrology consulted - recommendations appreciated # Hypothyroidism - Continue home levothyroxine # Hypokalemia - resolved Abran An M.D.
[2022-10-22] MEDS: ATORVASTATIN 40 MG TAB PO SCH (20:43)
--- NOTE | 2022-10-23 00:13 | PN ---
Date of Progress Note: 10/22/2022 Chief Complaint: End-stage renal disease. History Of Present Illness: Patient presented to the hospital with altered mental status. She was c omplaining of hallucination. Patient is undergoing dialysis for end-stage renal disease. She has co mplicated history of a congestive heart failure, coronary artery disease, multiple intervention for c oronary artery disease, and peripheral vascular disease. Currently, she is receiving treatment for u rinary tract infection. She is on micafungin and she has been followed by Infectious Disease. She a ppears to be at baseline mental status and confusion, resolved. Review of Systems: Denies fever or chills. Physical Examination: Lungs: Clear to auscultation bilaterally. Heart: S1, S2. Abdomen: Soft, benign, nontender. Extremities: No edema. Dressing in place. Impression And Plan: 1.End-stage renal disease. Patient underwent dialysis yesterday. Ultrafiltration was obtained to c ontrol fluid overload. Peripheral edema has improved. 2.Hypertension. Monitor blood pressure. The patient recovered from shock. Continue midodrine for blood pressure support to prevent intradialytic hypotension. 3.Osteomyelitis with foot infection. Continue wound care and continue current antibiotics. 4.Urinary tract infection. Patient is on micafungin per Infectious Disease. 5.Volume overload. Patient is improving with volemia status and patient will continue p.o. fluid re striction and low-sodium diet. Continue dialysis with ultrafiltration to treat fluid overload. Prov sangita management for congestive heart failure. 6.Renal osteodystrophy. Monitor serum calcium and phosphorus level. Adjust medication for hyperphosphatemia as needed. 7.Anemia of chronic kidney disease. Continue XENIA. EB/MODL Voice ID: [id number] Report ID: [id number]
[2022-10-23 05:12] LABS: Absolute Lymphocytes (CBC) 0.7 K/uL (0.7-4.9); Hematocrit 24.5 % (36.0-45.0); Lymphocytes % 6.8 % (15.3-44.8); MPV 7.2 fL (7.6-11.3); Protime INR 1.07; RBC Red Blood Cell Count 2.76 M/uL (3.86-4.86)
[2022-10-23 05:24] LABS: Magnesium 1.9 mg/dL (1.6-2.4); Phosphorus 3.5 mg/dL (2.5-4.9)
[2022-10-23] MEDS: METOPROLOL XL 25 MG TAB PO SCH ×2 (06:00→19:34)
[2022-10-23] MEDS: LEVOTHYROXINE SOD 0.075 MG TAB PO SCH (06:22)
[2022-10-23] MEDS: PANTOPRAZOLE 40MG TABLET PO SCH ×2 (07:30→17:20)
[2022-10-23] MEDS: COLLAGENASE 30 GM OINTMENT TOP SCH (09:00)
[2022-10-23] MEDS: DOCUSATE NA 100 MG CAP PO SCH ×2 (09:00→20:04)
[2022-10-23] MEDS: THIAMINE HCL 100 MG TABLET PO SCH ×2 (09:00→20:04)
[2022-10-23] MEDS: ENSURE MAX PROTEIN 330 ML LIQUID PO SCH ×2 (09:00→20:05)
[2022-10-23] MEDS: BUPROPRION HCL S.R. 150MG TAB PO SCH (09:00)
[2022-10-23] MEDS: BUSPIRONE HCL 5 MG TABLET PO SCH ×2 (09:00→20:04)
[2022-10-23] MEDS: ASPIRIN EC 81 MG TAB PO SCH (09:00)
[2022-10-23] MEDS: INSULIN -REGULAR HUMAN 50 UNIT/0.5 ML ML SQ SCH ×4 (09:18→20:53)
[2022-10-23] MEDS ORDERED: NA CHLORIDE 0.9% 500 ML ONE (11:59)
--- NOTE | 2022-10-23 12:23 | P.PN ---
Date of Service: 10/23/22 Subjective: No new changes, No C/O voiced, Improving Patient sitting in bed, awake and oriented x3. No complaints at this time. Scheduled for right heel debridement today 10/23. No acute events reported overnight. Physical Examination - Vital Signs Temp Pulse Resp BP Pulse Ox 97.5 F 89 16 135/64 95 10/23/22 12:00 10/23/22 12:00 10/23/22 12:00 10/23/22 12:00 10/23/22 12:00 - Physical Exam General: Alert, In no apparent distress, Oriented x3 HEENT: Atraumatic, Normocephalic Neck: Supple, JVD not distended Respiratory: Normal air movement; breathing comfortably on room air Cardiovascular: No edema, regular rate and rhythm Gastrointestinal: Normal bowel sounds, Soft and benign, Non-distended Musculoskeletal: No clubbing, No swelling Integumentary: No rashes, No breakdown, Diabetic ulcer (right heel); small ab rasions scattered BLE and bilateral hands. Neurological: Normal speech, Normal tone, Normal affect - Studies Laboratory Data - reviewed Microbiology Data (last 24 hrs): - 10/13 Blood culture: no growth to date - 10/17 Urine culture: mixed fercho Imagings Data: - XR Foot 10/14: "Significant soft tissue thinning and ulceration is seen adjacent to the heel. Moderate calcaneal spurs. No gross fracture. Significant atherosclerosis. Radiographic evidence of osteomyelitis not seen, however MRI is more sensitive." - XR Chest 10/12: "No acute abnormalities displayed." Medications List Reviewed: Yes Assessment And Plan Problem List - ESRD - Diabetes mellitus type II - CAD - Anemia of chronic disease - Hypothyroidism - Hypertension - Diabetic Ulcer of Right Heel - UTI Right Heel Diabetic Ulcer vs pressure injury - Unstageable - XR foot 10/14 "Radiographic evidence of osteomyeltis not seen, however MRI is more sensitive" - wound care per surgery team - currently on IV vancomycin (10/16) - Scheduled for debridement of right heel 10/23 UTI - 10/13 Urinalysis: 2+ blood, 500 leukocyte esterase, >50 RBCs, >50 WBCs, 20-50 bacteria, moderate yeast, 3+ yeast - 10/17 urine culture: mixed fercho - Previously on IV micafungin (10/17-10/19) - 10/13 blood culture: no growth - leukocytosis resolved - afebrile Recommendations - Scheduled for right heel debridement today 10/23 - Consider d/c Vancomycin; no evidence of active infection at this time - Continue wound care per surgery team and offload pressure ID will follow patient and monitor for signs of infection Case discussed with Mariaa Farrar
[2022-10-23] MEDS ORDERED: BUPIVACAINE 0.25% PF 30 ML VIAL ONE (13:09)
--- NOTE | 2022-10-23 13:43 | CON ---
Date of Consultation: 10/17/2022 Reason For Consult: Evaluate the patient for delirium and recommend management. History Of Present Illness: The patient was seen in the ICU. On evaluation, history was provided mostly by patient in the ICU. On interview, the patient reported being admitted into the hospital 3 days post diabetic foot ulcer debridement. She stated that she had developed some discharge from the wound and subsequently admitted into the hospital. She stated that while in the hospital, she was getting confused and having visual hallucination. However, she currently denies any episode of auditory or visual hallucination. Denies having any delusional thoughts. She endorses past history of depression and anxiety, for which she sought treatment from her primary care physician, who prescribed her Wellbutrin 150 mg daily and BuSpar 5 mg p.o. b.i.d., which she has been taking for few months. She denies any history of psychosis. No history of bipolar disorder or OCD. She states although she is worried about her physical health. She, however, denies having episodes of panic attack. She denies any sleep disturbance. No history of substance abuse and no PTSD symptoms. The patient denies any history of seizure disorder nor head injury. Mental Status Examination: The patient is an obese built female. Dressed in hospital attire. Wears medicated glasses. Alert and oriented x3. She is well groomed. 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 She is cooperative with interview, not in any obvious acute Cardio-respiratory distress. Mild psychomotor retardation noted. Speech is spontaneous normal in rate, rhythm and volume distracted easily in her recall of 5 objects. Mood: Worried. Affect is more congruent. Thought process is linear and occasional circumstantial. Thought content No suicidal or homicidal ideation and no auditory and visual hallucination. Fund of knowledge is fair. Insight and judgment fair Diagnoses: 1. Delirium. 2. Anxiety disorder, unspecified. 3. Mood disorder, unspecified. Plan: 1. Discontinue Ativan p.r.n. 2. Discontinue Geodon p.r.n. 3. Recommend continue BuSpar 5 mg p.o. b.i.d. 4. Patient should be referred to ambulatory Psychiatry clinic on discharge. DB Voice ID: [id number] Report ID: [id number] MTDD
--- NOTE | 2022-10-23 13:45 | P.OP ---
Preoperative diagnosis: RIGHT Heel Pressure Ulcer Postoperative diagnosis: RIGHT Heel Pressure Ulcer Primary procedure: Debridement of RIGHT Heel Pressure Ulcer Anesthesia: GETA + Local Estimated blood loss: <5cc Specimen: debridement tissue Findings: ~ 3cm area of pressure necrosis to bone Complications: None Transferred to: Recovery Room Condition: Good
[2022-10-23] MEDS ORDERED: LIDOCAINE 2% MPF 5 ML VIAL ONE (13:57)
[2022-10-23] MEDS ORDERED: MIDAZOLAM HCL 2 MG/2 ML INJ ONE (13:57)
[2022-10-23] MEDS ORDERED: propofoL 200 MG/20 ML VIAL IV ONE (13:57)
[2022-10-23] MEDS ORDERED: FENTANYL CITR 100 MCG/2 ML ONE (13:57)
[2022-10-23] MEDS ORDERED: METOCLOPRAMIDE 10 MG/2mL INJ ONE (13:57)
[2022-10-23] MEDS ORDERED: EPHEDRINE SULF 50 MG/ML VIAL ONE (13:57)
[2022-10-23] MEDS ORDERED: ONDANSETRON 4 MG/2 ML VIAL ONE ×2 (13:57)
--- NOTE | 2022-10-23 19:59 | P.PN ---
Subjective Date of Service: 10/23/22 Primary Care Provider: Marshall Chief Complaint: Altered mental status No acute events overnight. She reports no concerns this morning. Planning for debridement of right heel this afternoon. She denies any chest pain, headaches, shortness of breath, or abdominal pain. She has been NPO past midnight. Review of Systems 10-point ROS is otherwise unremarkable Musculoskeletal: Foot Pain (right heel) Physical Examination - Vital Signs Temperature: 97.1 F Blood Pressure: 116/57 Pulse: 83 Respirations: 16 Pulse Ox (%): 97 - Studies Medications List Reviewed: Yes Assessment And Plan - Plan - Physical Exam General: Alert, In no apparent distress, Oriented x3 HEENT: Atraumatic, Mucous membr. moist/pink, Sclerae nonicteric Neck: JVD not distended Respiratory: Clear to auscultation bilaterally, Normal air movement Cardiovascular: Regular rate/rhythm, No murmurs, Edema (trace BLE) Gastrointestinal: Normal bowel sounds, Soft, Non-distended, No tenderness Musculoskeletal: No clubbing Integumentary: Pressure ulcer (bilateral heels covered in clean dressing/SUJIT wrap) Neurological: Normal speech, Normal affect # Acute Toxic Metabolic Encephalopathy possibly secondary to Fungal Urinary Tract Infection vs -resolved # Recent Admission for Septic Shock likely secondary to Methicillin-Sensitive Staphyloccoccus Aureus and Pseudomonas Aeruginosa bilateral Diabetic/Pressure Heel Ulcers with Methicillin-Sensitive Staphyloccoccus Aureus Bacteremia - Evaluation thus far: - Labs = Na+ 142, Ca2+ 9.7, CO2 26, Glucose 51 on presentation, Ammonia 36, BUN 29, Vitamin B12 1411, TSH 9.65 - ABG = pH 7.40, PCO2 39.3, PO2 70.4 - Blood cultures x 2 drawn - Urinalysis = 1+ ketones, 2+ blood, 500 leukocyte esterase, >50 RBCs, >50 WBCs, 20-50 bacteria, moderate yeast, 3+ yeast - Chest x-ray = "no acute abnormalities displayed" - Right foot x-ray = "significant soft tissue thinning and ulceration is seen adjacent to the heel. Moderate calcaneal spurs. No gross fracture. Significant atherosclerosis. Radiographic evidence of osteomyelitis not seen, however MRI is more sensitive." - CT head = "no acute intracranial abnormality is seen" - MRI brain = "negative for acute CVA or other acute intracranial process." - Management plan: - Multiple medications on MAR may contribute to AMS (buspirone, bupropion, PRN lorazepam, PRN ziprasidone, hydrocodone) - Consulted Psychiatry and spoke with Dr. Morse - recommendations appreciated - Consulted Infectious Diseases and General Surgery in regards to heel ulcer - recommendations appreciated - Dr. Peterson planning to debride wound today - Continue Vancomycin and wound care - Discontinued PRN lorazepam, ziprasidone - Serial neuro checks # Suspect Type II Non-ST Segment Elevation Myocardial Infarction (Demand Ischemia) due to above # Coronary Artery Disease s/p PCI (08/11/2022) # Hypertension # Hyperlipidemia Recently underwent PCI to RCA on 08/11/2022. Plan was for staged PCI given advanced LAD disease. - Evaluation thus far: - EKG: reportedly without STEMI, trend - Serial troponin: 68.7 -> 64.6 - Transthoracic echocardiogram (Aug 2022) = "1. normal left ventricular ejection fraction 50-55% 2. mild mitral regurgitation 3. mild tricuspid regurgitation 4. moderate diastolic dysfunction 5. right ventricular systolic pressure is elevated 60-65 mmHg" - Management plan: - Consult Cardiology and spoke with Dr. Uribe - recommendations appreciated - Continue home aspirin, metoprolol, lisinopril, clopidogrel, atorvastatin # Hypoglycemia in Type II Diabetes Mellitus - PRN D50W for hypoglycemia # End-Stage Renal Disease on MWF iHD # Anemia of Chronic Kidney Disease - Nephrology consulted - recommendations appreciated # Hypothyroidism - Continue home levothyroxine # Hypokalemia - resolved Abran An M.D.
[2022-10-23] MEDS: ACETAMINOPHEN 500 MG TAB PO PRN (20:04)
[2022-10-23] MEDS: ATORVASTATIN 40 MG TAB PO SCH (20:04)
--- NOTE | 2022-10-24 00:43 | OP ---
Date of Procedure: 10/23/2022 Surgeon: Avtar Peterson MD, Preoperative Diagnosis: Right heel pressure ulcer. Postoperative Diagnosis: Right heel pressure ulcer. Procedure Performed: Debridement of right heel pressure ulcer. Anesthesia: General endotracheal plus local with 0.25% Marcaine. Estimated Blood Loss: Less than 5 cc. Specimen: Debrided tissue. Findings: Approximately 3 cm area of pressure necrosis down to the bone on the upper aspect of the c alcaneal bone. Complications: None. The patient transferred to recovery room in good condition. Procedure In Detail: After informed consent was obtained, the patient was brought to the operating r oom and prepped and prepped and draped in the usual sterile fashion. After adequate anesthesia was a chieved, I used Metzenbaum scissors to remove all nonviable tissue from the heel area down into the f ascia overlying the bone. All necrotic tissue was removed. Bleeding was minimal from the area. The re was granulation tissue in the surrounding area, which was previously debrided, which is improving. The wound was then cleansed with sterile saline and wrapped with Vashe-soaked gauze and a sterile d ressing placed over top. The patient had reduced pressure dressing to bulk up and allow for decrease d pressure placement on the heel wound area. She tolerated the procedure without evidence of any complication and transferred to PACU in good condition. All counts were correct at the end of the ca se. TK/MODL Voice ID: [id number] Report ID: [id number]
[2022-10-24 03:57] LABS: Potassium 4.3 mEq/L (3.5-5.1)
[2022-10-24] MEDS: ACETAMINOPHEN 500 MG TAB PO PRN ×3 (05:09→21:46)
[2022-10-24] MEDS: LEVOTHYROXINE SOD 0.075 MG TAB PO SCH (05:09)
[2022-10-24] MEDS: METOPROLOL XL 25 MG TAB PO SCH ×2 (05:09→18:55)
--- NOTE | 2022-10-24 07:28 | PN ---
Date of Progress Note: 10/23/2022 Chief Complaint: End-stage renal disease, on hemodialysis. History Of Present Illness: Patient underwent dialysis on 2 L on Sunday. She presented to the [facility] with altered mental status. She was complaining of hallucinations and confusion. She was foun d to have osteomyelitis of the foot and diabetic foot infection. She has fluid overload and volemia started to have improved with dialysis. Review of Systems: Denies fever or chills. Physical Examination: Lungs: Clear to auscultation bilaterally. Heart: S1, S2. Abdomen: Soft, benign. Extremities: No edema. Impression And Plan: 1.End-stage renal disease. Patient underwent dialysis on Sunday. Continue to monitor electrolyte s. 2.Treatment with dialysis and ultrafiltration is scheduled for tomorrow. 3.Hypertension. Monitor blood pressure closely. Adjust medication. Patient will continue midodrin e to prevent intradialytic hypotension. 4.Osteomyelitis of the foot, diabetic foot infection. Continue wound care and continue current anti biotics. 5.Urinary tract infection. The patient is on micafungin per Infectious Disease. 6.Volume overload. Continue p.o. fluid restriction. Advance ultrafiltration with dialysis. 7.Renal osteodystrophy. Monitor calcium and phosphorus level. 8.Anemia of chronic kidney disease. Continue XENIA. EB/MODL Voice ID: [id number] Report ID: [id number]
[2022-10-24] MEDS: INSULIN -REGULAR HUMAN 50 UNIT/0.5 ML ML SQ SCH ×4 (08:55→21:00)
[2022-10-24] MEDS: PANTOPRAZOLE 40MG TABLET PO SCH ×2 (08:56→17:08)
[2022-10-24] MEDS: COLLAGENASE 30 GM OINTMENT TOP SCH (09:00)
[2022-10-24] MEDS: ENSURE MAX PROTEIN 330 ML LIQUID PO SCH ×2 (09:00→21:00)
[2022-10-24] MEDS: DOCUSATE NA 100 MG CAP PO SCH ×2 (09:35→21:42)
[2022-10-24] MEDS: ASPIRIN EC 81 MG TAB PO SCH (09:35)
[2022-10-24] MEDS: THIAMINE HCL 100 MG TABLET PO SCH ×2 (09:35→21:42)
[2022-10-24] MEDS: CLOPIDOGREL 75 MG TABLET PO SCH (09:36)
[2022-10-24] MEDS: BUPROPRION HCL S.R. 150MG TAB PO SCH (09:37)
[2022-10-24] MEDS: BUSPIRONE HCL 5 MG TABLET PO SCH ×2 (09:37→21:42)
--- NOTE | 2022-10-24 10:14 | P.PN ---
Date of Service: 10/24/22 Subjective: No new changes, No C/O voiced, Improving s/p right heel wound debridement 10/23. Patient sitting in bed, awake and oriented x3. No complaints at this time. No acute events reported overnight. Physical Examination - Vital Signs Temp Pulse Resp BP Pulse Ox 97.1 F 84 16 141/63 H 97 10/24/22 08:00 10/24/22 08:00 10/24/22 08:00 10/24/22 08:00 10/24/22 08:00 - Physical Exam General: Alert, In no apparent distress, Oriented x3 HEENT: Atraumatic, Normocephalic Neck: Supple, JVD not distended Respiratory: Normal air movement; breathing comfortably on room air Cardiovascular: No edema, regular rate and rhythm Gastrointestinal: Normal bowel sounds, Soft and benign, Non-distended Musculoskeletal: No clubbing, No swelling Integumentary: Right heel dressing is clean, dry and intact; small abrasions scattered BLE and bilateral hands. Neurological: Normal speech, Normal tone, Normal affect - Studies Laboratory Data - Reviewed Microbiology Data (last 24 hrs): - 10/13 Blood culture: no growth to date - 10/17 Urine culture: mixed fercho Imagings Data: - XR Foot 10/14: "Significant soft tissue thinning and ulceration is seen adjacent to the heel. Moderate calcaneal spurs. No gross fracture. Significant atherosclerosis. Radiographic evidence of osteomyelitis not seen, however MRI is more sensitive." - XR Chest 10/12: "No acute abnormalities displayed." Medications List Reviewed: Yes Assessment And Plan Problem List - ESRD - Diabetes mellitus type II - CAD - Anemia of chronic disease - Hypothyroidism - Hypertension - Diabetic Ulcer of Right Heel - UTI Right Heel Diabetic Ulcer vs pressure injury - s/p debridement of right heel 10/23 - Wound care per surgery team - Currently on IV vancomycin (10/16) UTI - 10/13 Urinalysis: 2+ blood, 500 leukocyte esterase, >50 RBCs, >50 WBCs, 20-50 bacteria, moderate yeast, 3+ yeast - 10/17 urine culture: mixed fercho - Previously on IV micafungin (10/17-10/19) - 10/13 blood culture: no growth - leukocytosis resolved - afebrile Recommendations - Consider d/c Vancomycin; no evidence of active infection at this time; blood and urine cultures negative, no leukocytosis, afebrile - Continue wound care per surgery team and offload pressure - Pending SNF approval ID will follow patient and monitor for signs of infection Case discussed with Mariaa Farrar
--- NOTE | 2022-10-24 13:27 | P.PN ---
Subjective Date of Service: 10/24/22 Primary Care Provider: Marshall Chief Complaint: Altered mental status 67F SNF resident w/ PMHx of ESRD on outpt HD Sunday & Sunday at [facility], [facility] with recent PCI, anemia of chronic disease, DM2, Htn, obesity, and hypothyroidism who p/w AMS, hypokalemia, hypoglycemia, & elevated troponin, admitted for further eval & mngt. Has had episodes of hallucinations today. VS stable. Today AAOX3 seen and examined during HD S/p wound debridements Physical exam General: AAOX3 <NAD , obese Neck: Supple, no elevated JVD Respiratory: basal rales Cardiovascular: No rubs, No murmurs Gastrointestinal: Soft and benign, Non-distended Musculoskeletal: edema, leg dressed A/P # ESRD on outpt HD on HD MWF HD qTTS while in house renal dose meds # AMS resolved possibly due to sepsis Per other services #Foot ulcer cont Abs and sound care S/o debridemenet # Anemia Retacrit SQ qTTS # Renal osteodystrophy Monitor serum Ca & Phos # CAD s/p recent PCI Per other services # Htn BP improving cont midodrine prn # DM2 w/ hypoglycemic episode Per primary team Physical Examination - Vital Signs Temperature: 97.1 F Blood Pressure: 141/63 Pulse: 84 Respirations: 16 Pulse Ox (%): 97 - Studies Medications List Reviewed: Yes Assessment And Plan Physician Review: Patient Assessed, Agree with Above Assessment and Plan
[2022-10-24] MEDS: EPOETIN ALFA 10,000 UNIT/ML VIAL IV SCH (14:00)
[2022-10-24] MEDS: VANCOMYCIN 500 MG in NA CHLORIDE 0.9% 100 ML IVPB SCH (17:08)
--- NOTE | 2022-10-24 19:41 | P.PN ---
Subjective Date of Service: 10/24/22 Primary Care Provider: Marshall Chief Complaint: Altered mental status No acute events overnight. She reports that her pain is well-controlled. She is pending SNF placement. She denies any chest pain, palpitations, or shortness of breath. Review of Systems 10-point ROS is otherwise unremarkable Musculoskeletal: Foot Pain (minimal, right heel) Physical Examination - Vital Signs Temperature: 96.8 F Blood Pressure: 145/63 Pulse: 82 Respirations: 15 Pulse Ox (%): 99 - Studies Medications List Reviewed: Yes Assessment And Plan - Plan - Physical Exam General: Alert, In no apparent distress, Oriented x3 HEENT: Atraumatic, Mucous membr. moist/pink, Sclerae nonicteric Neck: JVD not distended Respiratory: Clear to auscultation bilaterally, Normal air movement Cardiovascular: Regular rate/rhythm, No murmurs, no edema Gastrointestinal: Normal bowel sounds, Soft, Non-distended, No tenderness Musculoskeletal: No clubbing Integumentary: Pressure ulcer (bilateral heels covered in clean dressing/SUJIT wrap) Neurological: Normal speech, Normal affect # Acute Toxic Metabolic Encephalopathy possibly secondary to Fungal Urinary Tract Infection vs -resolved # Recent Admission for Septic Shock likely secondary to Methicillin-Sensitive Staphyloccoccus Aureus and Pseudomonas Aeruginosa bilateral Diabetic/Pressure Heel Ulcers with Methicillin-Sensitive Staphyloccoccus Aureus Bacteremia - Evaluation thus far: - Labs = Na+ 142, Ca2+ 9.7, CO2 26, Glucose 51 on presentation, Ammonia 36, BUN 29, Vitamin B12 1411, TSH 9.65 - ABG = pH 7.40, PCO2 39.3, PO2 70.4 - Blood cultures x 2 drawn - Urinalysis = 1+ ketones, 2+ blood, 500 leukocyte esterase, >50 RBCs, >50 WBCs, 20-50 bacteria, moderate yeast, 3+ yeast - Chest x-ray = "no acute abnormalities displayed" - Right foot x-ray = "significant soft tissue thinning and ulceration is seen adjacent to the heel. Moderate calcaneal spurs. No gross fracture. Significant atherosclerosis. Radiographic evidence of osteomyelitis not seen, however MRI is more sensitive." - CT head = "no acute intracranial abnormality is seen" - MRI brain = "negative for acute CVA or other acute intracranial process." - Management plan: - Consulted Infectious Diseases and General Surgery in regards to heel ulcer - recommendations appreciated - S/p wound debridement yesterday. Dr. Peterson has cleared for discharge from a surgical standpoint - Continue Vancomycin and wound care - Discontinued PRN lorazepam, ziprasidone - Serial neuro checks # Suspect Type II Non-ST Segment Elevation Myocardial Infarction (Demand Ischemia) due to above # Coronary Artery Disease s/p PCI (08/11/2022) # Hypertension # Hyperlipidemia Recently underwent PCI to RCA on 08/11/2022. Plan was for staged PCI given advanced LAD disease. - Evaluation thus far: - EKG: reportedly without STEMI, trend - Serial troponin: 68.7 -> 64.6 - Transthoracic echocardiogram (Aug 2022) = "1. normal left ventricular ejection fraction 50-55% 2. mild mitral regurgitation 3. mild tricuspid regurgitation 4. moderate diastolic dysfunction 5. right ventricular systolic pressure is elevated 60-65 mmHg" - Management plan: - Consult Cardiology and spoke with Dr. Uribe - recommendations appreciated - Continue home aspirin, metoprolol, lisinopril, clopidogrel, atorvastatin # Hypoglycemia in Type II Diabetes Mellitus - PRN D50W for hypoglycemia # End-Stage Renal Disease on MWF iHD # Anemia of Chronic Kidney Disease - Nephrology consulted - recommendations appreciated # Hypothyroidism - Continue home levothyroxine # Hypokalemia - resolved Insurance [id number] completed with Dr. Tirado. She has been denied for SNF. Appreciate assistance. Abran An M.D.
[2022-10-24] MEDS: ATORVASTATIN 40 MG TAB PO SCH (21:42)
[2022-10-25] MEDS: LEVOTHYROXINE SOD 0.075 MG TAB PO SCH (06:33)
[2022-10-25] MEDS: METOPROLOL XL 25 MG TAB PO SCH ×2 (06:33→17:09)
[2022-10-25] MEDS: INSULIN -REGULAR HUMAN 50 UNIT/0.5 ML ML SQ SCH ×4 (08:20→19:53)
[2022-10-25] MEDS: BUPROPRION HCL S.R. 150MG TAB PO SCH (08:20)
[2022-10-25] MEDS: ASPIRIN EC 81 MG TAB PO SCH (08:20)
[2022-10-25] MEDS: DOCUSATE NA 100 MG CAP PO SCH ×2 (08:20→21:37)
[2022-10-25] MEDS: BUSPIRONE HCL 5 MG TABLET PO SCH ×2 (08:20→21:40)
[2022-10-25] MEDS: CLOPIDOGREL 75 MG TABLET PO SCH (08:20)
[2022-10-25] MEDS: THIAMINE HCL 100 MG TABLET PO SCH ×2 (08:20→21:40)
[2022-10-25] MEDS: PANTOPRAZOLE 40MG TABLET PO SCH ×2 (08:20→17:09)
[2022-10-25] MEDS: ENSURE MAX PROTEIN 330 ML LIQUID PO SCH ×2 (08:21→21:00)
[2022-10-25] MEDS: COLLAGENASE 30 GM OINTMENT TOP SCH (08:21)
--- NOTE | 2022-10-25 09:38 | P.PN ---
Date of Service: 10/25/22 Subjective: No new changes, No C/O voiced, Improving Patient laying in bed watching TV. Breathing comfortably on room air. No complaints at this time. Pending SNF approval. Right heel dressing clean dry and intact. s/p right heel debridement 10/23. Operative report Findings 10/24: "Approximately 3 cm area of pressure necrosis down to the bone on the upper aspect of the calcaneal bone." Physical Examination - Vital Signs Temp Pulse Resp BP Pulse Ox 97.2 F 93 H 16 166/90 H 95 10/25/22 08:00 10/25/22 08:00 10/25/22 08:00 10/25/22 08:00 10/25/22 08:00 - Physical Exam General: Alert, In no apparent distress, Oriented x3 HEENT: Atraumatic, Normocephalic Neck: Supple, JVD not distended Respiratory: Normal air movement; breathing comfortably on room air Cardiovascular: No edema, regular rate and rhythm Gastrointestinal: Normal bowel sounds, Soft and benign, Non-distended Musculoskeletal: No clubbing, No swelling Integumentary: Right heel dressing is clean, dry and intact; small abrasions scattered BLE and bilateral hands. Neurological: Normal speech, Normal tone, Normal affect - Studies Laboratory Data - Reviewed Microbiology Data (last 24 hrs): - 10/13 Blood culture: no growth to date - 10/17 Urine culture: mixed fercho Imagings Data: - XR Foot 10/14: "Significant soft tissue thinning and ulceration is seen adjacent to the heel. Moderate calcaneal spurs. No gross fracture. Significant atherosclerosis. Radiographic evidence of osteomyelitis not seen, however MRI is more sensitive." - XR Chest 10/12: "No acute abnormalities displayed." Medications List Reviewed: Yes Assessment And Plan Problem List - ESRD - Diabetes mellitus type II - CAD - Anemia of chronic disease - Hypothyroidism - Hypertension - Diabetic Ulcer of Right Heel vs Pressure Injury Right Heel - UTI - Osteomyelitis Osteomyelitis / Right Heel Pressure Injury - s/p debridement of right heel 10/23; "Findings: Approximately 3 cm area of pressure necrosis down to the bone on the upper aspect of the calcaneal bone." - Wound care per surgery team - Currently on IV vancomycin (started 10/16) UTI - 10/13 Urinalysis: 2+ blood, 500 leukocyte esterase, >50 RBCs, >50 WBCs, 20-50 bacteria, moderate yeast, 3+ yeast - 10/17 urine culture: mixed fercho - Previously on IV micafungin (10/17-10/19) - 10/13 blood culture: no growth - leukocytosis resolved - afebrile Recommendations - Osteomyelitis: Continue Vancomycin for 6 weeks duration (started 10/16) - Continue wound care per surgery team and offload pressure - Pending [facility] approval ID will follow patient and monitor for signs of infection Case discussed with Mariaa Farrar
--- NOTE | 2022-10-25 13:07 | PN ---
Date of Progress Note: 10/25/2022 Subjective: The patient was admitted with foot infection, status post wound care. The patient feeling better. Physical Examination: Vital Signs: Blood pressure 166/90, pulse of 93, afebrile. Chest: Clear to auscultation. Heart: S1, S2. Regular. Abdomen: Soft, nontender. Extremities: Dressing on the right foot. Neurologic: Alert. No focality. Laboratory Data: Hemoglobin 8.1. Sodium 133, potassium 4.3, bicarb 26, BUN 50, creatinine 3.7, calcium of 9. Current Medications: The patient on include; 1. Vancomycin. 2. Aspirin. 3. Midodrine. 4. Plavix. 5. Epogen. 6. Atorvastatin. 7. Metoprolol. 8. Buspirone. 9. Pantoprazole. Assessment And Plan: 1. End-stage renal disease, over volume, currently back to normal volume. We will continue the patient on dialysis TTS. I am going to go ahead and arrange for the dialysis tomorrow. 2. Hyponatremia, dilutional secondary to renal failure. Will be corrected with dialysis. 3. Anemia of chronic kidney disease. Continue XENIA. 4. Hypokalemia. The patient is going to be dialyzed on high potassium bath. No need for supplement. 5. Hypertension, currently hypotension. We will continue to use midodrine. 6. Urinary tract infection. Continue current antibiotic. 7. Foot infection. Continue local wound care. Follow up with Surgery. Time spent examining the patient [id number], reviewing data, lab and radiology, placing order, discussing the case with the patient, discussing the case with the steamer blocker including nurse more than 35 minutes CR Voice ID: [id number] Report ID: [id number] ASHOK
--- NOTE | 2022-10-25 16:12 | P.PN ---
Subjective Date of Service: 10/25/22 Primary Care Provider: Marshall Chief Complaint: Altered mental status Subjective: No new changes Physical Examination - Vital Signs Temperature: 97.2 F Blood Pressure: 139/70 Pulse: 91 Respirations: 14 Pulse Ox (%): 93 - Physical Exam General: Alert HEENT: Atraumatic, Normocephalic Neck: Supple Respiratory: Normal air movement Gastrointestinal: Soft and benign Neurological: Normal speech - Studies Medications List Reviewed: Yes Assessment And Plan - Plan # Acute Toxic Metabolic Encephalopathy possibly secondary to Fungal Urinary Tract Infection vs -resolved # Recent Admission for Septic Shock likely secondary to Methicillin-Sensitive Staphyloccoccus Aureus and Pseudomonas Aeruginosa bilateral Diabetic/Pressure Heel Ulcers with Methicillin-Sensitive Staphyloccoccus Aureus Bacteremia - Evaluation thus far: - Labs = Na+ 142, Ca2+ 9.7, CO2 26, Glucose 51 on presentation, Ammonia 36, BUN 29, Vitamin B12 1411, TSH 9.65 - ABG = pH 7.40, PCO2 39.3, PO2 70.4 - Blood cultures x 2 drawn - Urinalysis = 1+ ketones, 2+ blood, 500 leukocyte esterase, >50 RBCs, >50 WBCs, 20-50 bacteria, moderate yeast, 3+ yeast - Chest x-ray = "no acute abnormalities displayed" - Right foot x-ray = "significant soft tissue thinning and ulceration is seen adjacent to the heel. Moderate calcaneal spurs. No gross fracture. Significant atherosclerosis. Radiographic evidence of osteomyelitis not seen, however MRI is more sensitive." - CT head = "no acute intracranial abnormality is seen" - MRI brain = "negative for acute CVA or other acute intracranial process." - Management plan: - Consulted Infectious Diseases and General Surgery in regards to heel ulcer - recommendations appreciated - S/p wound debridement yesterday. Dr. Peterson has cleared for discharge from a surgical standpoint - Continue Vancomycin and wound care as per ID recommendation for 6 weeks. # Suspect Type II Non-ST Segment Elevation Myocardial Infarction (Demand Ischemia) due to above # Coronary Artery Disease s/p PCI (08/11/2022) # Hypertension # Hyperlipidemia Recently underwent PCI to RCA on 08/11/2022. Plan was for staged PCI given advanced LAD disease. - Evaluation thus far: - EKG: reportedly without STEMI, trend - Serial troponin: 68.7 -> 64.6 - Transthoracic echocardiogram (Aug 2022) = "1. normal left ventricular ejection fraction 50-55% 2. mild mitral regurgitation 3. mild tricuspid regurgitation 4. moderate diastolic dysfunction 5. right ventricular systolic pr essure is elevated 60-65 mmHg" - Management plan: - Consult Cardiology and spoke with Dr. Uribe - recommendations appreciated - Continue home aspirin, metoprolol, lisinopril, clopidogrel, atorvastatin # Hypoglycemia in Type II Diabetes Mellitus - PRN D50W for hypoglycemia # End-Stage Renal Disease on MWF iHD # Anemia of Chronic Kidney Disease - Nephrology consulted - recommendations appreciated # Hypothyroidism - Continue home levothyroxine Disposition: Pending SNF placement. Physician Review: Patient Assessed, Agree with Above Assessment and Plan
[2022-10-25] MEDS: ATORVASTATIN 40 MG TAB PO SCH (21:37)
[2022-10-25] MEDS: MAGNESIUM HYDROXIDE 8% 30 ML PO PRN (21:37)
[2022-10-26] MEDS: METOPROLOL XL 25 MG TAB PO SCH ×2 (05:32→17:31)
[2022-10-26] MEDS: LEVOTHYROXINE SOD 0.075 MG TAB PO SCH (05:32)
[2022-10-26] MEDS: INSULIN -REGULAR HUMAN 50 UNIT/0.5 ML ML SQ SCH ×4 (07:30→21:00)
[2022-10-26] MEDS: PANTOPRAZOLE 40MG TABLET PO SCH ×2 (09:17→15:48)
[2022-10-26] MEDS: ASPIRIN EC 81 MG TAB PO SCH (09:18)
[2022-10-26] MEDS: THIAMINE HCL 100 MG TABLET PO SCH ×2 (09:18→20:53)
[2022-10-26] MEDS: DOCUSATE NA 100 MG CAP PO SCH ×2 (09:18→20:51)
[2022-10-26] MEDS: CLOPIDOGREL 75 MG TABLET PO SCH (09:18)
[2022-10-26] MEDS: BUSPIRONE HCL 5 MG TABLET PO SCH ×2 (09:19→20:51)
[2022-10-26] MEDS: BUPROPRION HCL S.R. 150MG TAB PO SCH (09:19)
[2022-10-26] MEDS: COLLAGENASE 30 GM OINTMENT TOP SCH (09:21)
[2022-10-26] MEDS: ENSURE MAX PROTEIN 330 ML LIQUID PO SCH ×2 (09:23→20:51)
--- NOTE | 2022-10-26 09:51 | P.PN ---
Date of Service: 10/26/22 Subjective: No new changes, No C/O voiced, Improving s/p right heel debridement 10/23. Operative report Findings 10/24: "Approximately 3 cm area of pressure necrosis down to the bone on the upper aspect of the calcaneal bone." Patient laying in bed not in distress, alert and oriented x3. breathing comfortably on room air. No complaints at this time. Right heel dressing clean dry and intact. Physical Examination - Vital Signs Temp Pulse Resp BP Pulse Ox 97.8 F 96 H 16 167/88 H 93 10/26/22 08:00 10/26/22 08:00 10/26/22 08:00 10/26/22 08:00 10/26/22 08:00 - Physical Exam General: Alert, In no apparent distress, Oriented x3 HEENT: Atraumatic, Normocephalic Neck: Supple, JVD not distended Respiratory: Normal air movement; breathing comfortably on room air Cardiovascular: No edema, regular rate and rhythm Gastrointestinal: Normal bowel sounds, Soft and benign, Non-distended Musculoskeletal: No clubbing, No swelling Integumentary: Right heel dressing is clean, dry and intact; small abrasions scattered BLE and bilateral hands. Neurological: Normal speech, Normal tone, Normal affect - Studies Laboratory Data - Reviewed Microbiology Data (last 24 hrs): - 10/13 Blood culture: no growth to date - 10/17 Urine culture: mixed fercho Imagings Data: - XR Foot 10/14: "Significant soft tissue thinning and ulceration is seen adjacent to the heel. Moderate calcaneal spurs. No gross fracture. Significant atherosclerosis. Radiographic evidence of osteomyelitis not seen, however MRI is more sensitive." - XR Chest 10/12: "No acute abnormalities displayed." Medications List Reviewed: Yes Assessment And Plan Problem List - Osteomyelitis - Diabetic Ulcer vs Pressure Injury, Right Heel - Diabetes mellitus type II - Urinary Tract Infection - ESRD - CAD - Anemia of chronic disease - Hypothyroidism - Hypertension Osteomyelitis / Right Heel Pressure Injury - s/p debridement of right heel 10/23 "FINDINGS: Approximately 3 cm area of pressure necrosis down to the bone on the upper aspect of the calcaneal bone." - Wound care per surgery team - On IV Vancomycin (started 10/16) UTI - 10/13 Urinalysis: 2+ blood, 500 leukocyte esterase, >50 RBCs, >50 WBCs, 20-50 bacteria, moderate yeast, 3+ yeast - 10/17 urine culture: mixed fercho - Previously on IV micafungin (10/17-10/19) - 10/13 blood culture: no growth - No leukocytosis; afebrile Recommendations - Osteomyelitis: Continue Vancomycin for 6 weeks duration (started 10/16) - Continue wound care per surgery team and offload pressure on heels ID will follow patient as needed Case discussed with Mariaa Farrar
--- NOTE | 2022-10-26 12:13 | PN ---
Date of Progress Note: 10/26/2022 Subjective: The patient was admitted with foot infection. The patient had septic shock. The patient was treated, recovered. The patient still maintaining good on her wound care. Physical Examination: Vital Signs: Blood pressure 167/88, pulse of 96, afebrile. Chest: Faint rales bilateral. Heart: S1, S2. Systolic murmur. Abdomen: Soft, nontender. Extremities: Dressing on the right foot. No edema. Neurologic: Alert. No focality. Laboratory Data: Hemoglobin 8.1. Sodium 133, potassium 4.3, bicarb 26, BUN 50, creatinine 3.7, calcium of 9. Current Medications: The patient on include; 1. Midodrine. 2. Vancomycin. 3. Aspirin. 4. Plavix. 5. Epogen. 6. Metoprolol 12.5 b.i.d. 7. Atorvastatin. 8. Tylenol. 9. Buspirone. 10. Ensure. 11. Levothyroxine. Assessment And Plan: 1. End-stage renal disease on admission. Used to be over volume, currently normal volume. I am going to continue the dialysis TTS. 2. Hyponatremia, dilutional, corrected with dialysis. 3. Hypertension, currently blood pressure on the lower side. Continue using midodrine for blood pressure support. 4. Urinary tract infection, status post treatment. 5. Foot infection. Continue local wound care. 6. Hypokalemia. The patient being dialyzed on high potassium bath. Currently resolved. 7. Diabetes with gastroparesis. Continue current treatment. Time spent examining the patient [id number], reviewing data, lab and radiology, placing order, discussing the case with the patient, discussing the case with the horses or mules teamster including nurse more than 35 minutes CR Voice ID: [id number] Report ID: [id number] ASHOK
--- NOTE | 2022-10-26 17:28 | P.DS ---
Admission Date: 10/13/22 Discharge Date: 10/27/22 Primary Care Provider: Marshall Disposition: DC HOME/HOME HEALTH CARE Discharge Condition: FAIR Reason for Admission: Altered mental status Brief History of Present Illness: Patient is a 67-year-old female with past medical history of ESRD on HD MWF, CAD with recent PCI, anemia of chronic disease, insulin-dependent diabetes, hypertension, and hypothyroidism who presented to the emergency department via EMS from halfway with concerns of hypoglycemia, hypokalemia, and altered mental status. EMS administered glucose so she was alert and oriented x 4 upon arrival. Labs significant for hgb 9.3, hct 27.4, potassium 2.6, creatinine 2.87, glucose 62, trop 68.7. Head CT negative. Patient was intermittently confused and hallucinating. She was admitted for further management. Hospital Course: Acute Toxic Metabolic Encephalopathy possibly secondary to Fungal Urinary Tract Infection vs -resolved Recent Admission for Septic Shock likely secondary to Methicillin-Sensitive Staphyloccoccus Aureus and Pseudomonas Aeruginosa bilateral Diabetic/Pressure Heel Ulcers with Methicillin-Sensitive Staphyloccoccus Aureus Bacteremia - Evaluation thus far: - Labs = Na+ 142, Ca2+ 9.7, CO2 26, Glucose 51 on presentation, Ammonia 36, BUN 29, Vitamin B12 1411, TSH 9.65 - ABG = pH 7.40, PCO2 39.3, PO2 70.4 - Blood cultures x 2 drawn - Urinalysis = 1+ ketones, 2+ blood, 500 leukocyte esterase, >50 RBCs, >50 WBCs, 20-50 bacteria, moderate yeast, 3+ yeast - Chest x-ray = "no acute abnormalities displayed" - Right foot x-ray = "significant soft tissue thinning and ulceration is seen adjacent to the heel. Moderate calcaneal spurs. No gross fracture. Significant atherosclerosis. Radiographic evidence of osteomyelitis not seen, however MRI is more sensitive." - CT head = "no acute intracranial abnormality is seen" - MRI brain = "negative for acute CVA or other acute intracranial process." - Consulted Infectious Diseases and General Surgery for the heel ulcer. - S/p wound debridement of pressure necrosis to the bone. -Treatment for osteomyelitis recommended. -Patient started on vancomycin and wound care as per ID recommendation -6 weeks of IV antibiotics for osteomyelitis per ID. -Currently asymptomatic and clinically stable for discharge. -Nephrology Dr. Flores contacted and he will arrange for the vancomycin to be given during hemodialysis. Suspect Type II Non-ST Segment Elevation Myocardial Infarction (Demand Ischemia) due to above Coronary Artery Disease s/p PCI (08/11/2022) Hypertension Hyperlipidemia Recently underwent PCI to RCA on 08/11/2022. Plan was for staged PCI given advanced LAD disease. - Evaluation thus far: - EKG: reportedly without STEMI, trend - Serial troponin: 68.7 -> 64.6 - Transthoracic echocardiogram (Aug 2022) = "1. normal left ventricular eje ction fraction 50-55% 2. mild mitral regurgitation 3. mild tricuspid regurgitation 4. moderate diastolic dysfunction 5. right ventricular systolic pressure is elevated 60-65 mmHg" - Management plan: - Consulted Cardiology Dr. Uribe. Medical management per cardiology. - Continued home aspirin, metoprolol, lisinopril, clopidogrel, atorvastatin Hypoglycemia in Type II Diabetes Mellitus - PRN D50W for hypoglycemia -Recent hemoglobin A1c less than 4. -Insulin discontinued on discharge. -Recommended only ADA diet End-Stage Renal Disease on MWF iHD Anemia of Chronic Kidney Disease - Nephrology consulted -Patient underwent routine hemodialysis. Hypothyroidism - Continued home levothyroxine Vital Signs/Physical Exam: Temp Pulse Resp BP Pulse Ox 98.3 F 95 H 14 159/86 H 92 10/26/22 16:00 10/26/22 16:00 10/26/22 16:00 10/26/22 16:00 10/26/22 16:00 General: Alert, In no apparent distress, Oriented x3 HEENT: Mucous membr. moist/pink Neck: JVD not distended Respiratory: Clear to auscultation bilaterally, Normal air movement Cardiovascular: Regular rate/rhythm, Normal S1 S2 Gastrointestinal: Soft and benign, Non-distended Integumentary: No cyanosis Neurological: Other (No focal motor deficit.) Laboratory Data at Discharge: WBC 10.50 thou/uL (4.3-10.9) 10/23/22 04:39 Hgb 8.1 g/dL (12.0-15.0) L 10/23/22 04:39 Hct 24.5 % (36.0-45.0) L 10/23/22 04:39 Plt Count 186 thou/uL (152-406) 10/23/22 04:39 PT 11.8 SECONDS (9.5-12.5) 10/23/22 04:39 INR 1.07 10/23/22 04:39 Sodium 133 mEq/L (136-145) L 10/24/22 02:43 Potassium 4.3 mEq/L (3.5-5.1) 10/24/22 02:43 BUN 50 mg/dL (7-18) H 10/24/22 02:43 Creatinine 3.71 mg/dL (0.55-1.02) H 10/24/22 02:43 Glucose 218 mg/dL (74-106) H 10/24/22 02:43 Phosphorus 3.5 mg/dL (2.5-4.9) 10/23/22 04:39 Magnesium 1.9 mg/dL (1.6-2.4) 10/23/22 04:39 Total Bilirubin 0.6 mg/dL (0.2-1.0) 10/17/22 06:44 AST 13 U/L (15-37) L 10/17/22 06:44 ALT < 10 U/L (13-56) L 10/17/22 06:44 Alkaline Phosphatase 162 U/L (45-117) H 10/17/22 06:44 Home Medications: Atorvastatin Calcium [Lipitor] 40 mg PO BEDTIME 11/17/19 Furosemide 80 mg PO DAILY 09/03/20 Lisinopril [Zestril] 5 mg PO DAILY 09/03/20 Loratadine [Claritin*] 10 mg PO DAILY 09/03/20 Pantoprazole [Protonix Tab*] 40 mg PO BIDAC 30 Days #60 tab 10/20/21 Buspirone HCl [Buspar*] 5 mg PO BID 06/11/22 Levothyroxine Sodium 150 mcg PO DAILY 06/11/22 Metoprolol Succinate [Toprol Xl*] 12.5 mg PO BID 6AM 6PM tab 06/21/22 Aspirin [Aspirin EC 81 MG] 1 tab PO DAILY 08/12/22 Cholecalciferol (Vitamin D3) [Vitamin D 1000 Iu Tab*] 1 cap PO DAILY 08/12/22 Midodrine HCl 5 mg PO PRN 08/27/22 buPROPion HCL [Bupropion HCl Sr] 150 mg PO DAILY 08/27/22 calcitrioL [Rocaltrol] 0.25 mcg PO DAILY 08/27/22 Clopidogrel Bisulfate [Plavix*] 75 mg PO DAILY #30 tab 09/16/22 Cyclobenzaprine [Flexeril*] 10 mg PO TID PRN #30 tab 09/16/22 Docusate [Colace Cap*] 100 mg PO BID #60 cap 09/16/22 Ensure Max Protein 330 ml PO BID #60 can 09/16/22 Hydrocodone 7.5/APAP 325 [Lowry 7.5/325 mg*] 1 tab PO Q6HP PRN #30 tab 09/16/22 Collagenase [Santyl Ointment*] 1 appl TOP DAILY #1 tube 10/26/22 Epoetin [Retacrit] 10,000 unit IV EVERY HD vial 10/26/22 Thiamine HCl [Vitamin B-1*] 200 mg PO BID #60 tab 10/26/22 Vancomycin/0.9 % Sod Chloride [Vancomycin 1 G/200Ml-0.9% NaCl] 500 mg IV AFTER EACH DIALYSIS 42 Days vial 10/26/22 New Medications: Collagenase [Santyl Ointment*] 1 appl TOP DAILY #1 tube Vancomycin/0.9 % Sod Chloride [Vancomycin 1 G/200Ml-0.9% NaCl] 500 mg IV AFTER EACH DIALYSIS 42 Days vial Thiamine HCl [Vitamin B-1*] 200 mg PO BID #60 tab Diet: ADA Activity: Fall precautions Followup: Elizabet Flores MD [ACTIVE - CAN ADMIT] - 1 Week Time spent managing pt's care (in minutes): 38
[2022-10-26] MEDS ORDERED: BACI/NEOMYCIN/POLY OINT 15GM TOP PRN (17:55)
[2022-10-26] MEDS: EPOETIN ALFA 10,000 UNIT/ML VIAL IV SCH (19:45)
[2022-10-26] MEDS ORDERED: NA CHLORIDE 0.9% 100 ML ONE (20:49)
[2022-10-26] MEDS ORDERED: VANCOMYCIN 500 MG/VIAL ONE (20:49)
[2022-10-26] MEDS: ATORVASTATIN 40 MG TAB PO SCH (20:51)
[2022-10-26] MEDS: VANCOMYCIN 500 MG in NA CHLORIDE 0.9% 100 ML IVPB SCH (20:51)
[2022-10-26] MEDS: MAGNESIUM HYDROXIDE 8% 30 ML PO PRN (21:03)
[2022-10-27] MEDS: LEVOTHYROXINE SOD 0.075 MG TAB PO SCH (06:09)
[2022-10-27] MEDS: METOPROLOL XL 25 MG TAB PO SCH (06:09)
[2022-10-27] MEDS: INSULIN -REGULAR HUMAN 50 UNIT/0.5 ML ML SQ SCH (08:17)
[2022-10-27] MEDS: ASPIRIN EC 81 MG TAB PO SCH (08:17)
[2022-10-27] MEDS: CLOPIDOGREL 75 MG TABLET PO SCH (08:17)
[2022-10-27] MEDS: THIAMINE HCL 100 MG TABLET PO SCH (08:18)
[2022-10-27] MEDS: BUSPIRONE HCL 5 MG TABLET PO SCH (08:18)
[2022-10-27] MEDS: PANTOPRAZOLE 40MG TABLET PO SCH (08:18)
[2022-10-27] MEDS: DOCUSATE NA 100 MG CAP PO SCH (08:18)
[2022-10-27] MEDS: COLLAGENASE 30 GM OINTMENT TOP SCH (08:20)
[2022-10-27] MEDS: ENSURE MAX PROTEIN 330 ML LIQUID PO SCH (08:20)
[2022-10-27] MEDS: BUPROPRION HCL S.R. 150MG TAB PO SCH (08:22)
--- NOTE | 2022-10-27 09:16 | P.PN ---
Date of Service: 10/27/22 Subjective: No new changes, No C/O voiced, Improving Patient in bed, not in distress, alert and oriented x3, breathing comfortably on room air. No complaints at this time. Clinically stable. No acute events reported overnight. Plan for patient to continue IV antibiotic x 6 weeks as outpatient. Physical Examination - Vital Signs Temp Pulse Resp BP Pulse Ox 97.5 F 97 H 18 149/75 H 93 10/27/22 04:00 10/27/22 06:09 10/27/22 04:00 10/27/22 06:09 10/27/22 04:00 - Physical Exam General: Alert, In no apparent distress, Oriented x3 HEENT: Atraumatic, Normocephalic Neck: Supple, JVD not distended Respiratory: Normal air movement; breathing comfortably on room air Cardiovascular: No edema, regular rate and rhythm Gastrointestinal: Normal bowel sounds, Soft and benign, Non-distended Musculoskeletal: No clubbing, No swelling Integumentary: Right heel dressing is clean, dry and intact; small abrasions scattered BLE and bilateral hands. Neurological: Normal speech, Normal tone, Normal affect - Studies Laboratory Data - Reviewed Microbiology Data (last 24 hrs): - 10/13 Blood culture: no growth to date - 10/17 Urine culture: mixed fercho Imagings Data: - XR Foot 10/14: "Significant soft tissue thinning and ulceration is seen adjacent to the heel. Moderate calcaneal spurs. No gross fracture. Significant atherosclerosis. Radiographic evidence of osteomyelitis not seen, however MRI is more sensitive." - XR Chest 10/12: "No acute abnormalities displayed." Medications List Reviewed: Yes Assessment And Plan Problem List - Osteomyelitis - Diabetic Ulcer vs Pressure Injury, Right Heel - Diabetes mellitus type II - Urinary Tract Infection - ESRD - CAD - Anemia of chronic disease - Hypothyroidism - Hypertension Osteomyelitis / Right Heel Pressure Injury - s/p debridement of right heel 10/23 "FINDINGS: Approximately 3 cm area of pressure necrosis down to the bone on the upper aspect of the calcaneal bone." - Wound care per surgery team - On IV Vancomycin, given after each Dialysis (started 10/16) UTI - 10/13 Urinalysis: 2+ blood, 500 leukocyte esterase, >50 RBCs, >50 WBCs, 20-50 bacteria, moderate yeast, 3+ yeast - 10/17 urine culture: mixed fercho - Previously on IV micafungin (10/17-10/19) - 10/13 blood culture: no growth - No leukocytosis; afebrile Recommendations - Osteomyelitis: Continue IV Vancomycin for 6 weeks duration (started 10/16) - Current plan for discharge home with home health for continued IV antibiotic therapy - Continue wound care per surgery team and offload pressure on heels ID will follow patient as needed Case discussed with Mariaa Farrar
[2022-10-27 09:40] VITALS: O2SAT 96
[2022-10-27 10:02] VITALS: BP 150/73; TEMP 97.6
--- NOTE | 2022-10-27 14:25 | P.PN ---
Subjective Date of Service: 10/26/22 Primary Care Provider: Marshall Chief Complaint: Altered mental status Patient has no new complaint. No issues overnight. Physical Examination - Vital Signs Temperature: 97.6 F Blood Pressure: 150/73 Pulse: 91 Respirations: 18 Pulse Ox (%): 96 - Physical Exam General: Alert, In no apparent distress, Oriented x3 HEENT: Mucous membr. moist/pink Neck: JVD not distended Respiratory: Clear to auscultation bilaterally, Normal air movement Cardiovascular: No edema, Regular rate/rhythm, Normal S1 S2 Gastrointestinal: Soft and benign, Non-distended Integumentary: No cyanosis Neurological: Other (No focal motor deficit) - Studies Medications List Reviewed: Yes Assessment And Plan - Plan # Acute Toxic Metabolic Encephalopathy possibly secondary to Fungal Urinary Tract Infection vs -resolved # Recent Admission for Septic Shock likely secondary to Methicillin-Sensitive Staphyloccoccus Aureus and Pseudomonas Aeruginosa bilateral Diabetic/Pressure Heel Ulcers with Methicillin-Sensitive Staphyloccoccus Aureus Bacteremia - Evaluation thus far: - Labs = Na+ 142, Ca2+ 9.7, CO2 26, Glucose 51 on presentation, Ammonia 36, BUN 29, Vitamin B12 1411, TSH 9.65 - ABG = pH 7.40, PCO2 39.3, PO2 70.4 - Blood cultures x 2 drawn: No growth. - Urinalysis = 1+ ketones, 2+ blood, 500 leukocyte esterase, >50 RBCs, >50 WBCs, 20-50 bacteria, moderate yeast, 3+ yeast - Chest x-ray = "no acute abnormalities displayed" - Right foot x-ray = "significant soft tissue thinning and ulceration is seen adjacent to the heel. Moderate calcaneal spurs. No gross fracture. Significant atherosclerosis. Radiographic evidence of osteomyelitis not seen, however MRI is more sensitive." - CT head = "no acute intracranial abnormality is seen" - MRI brain = "negative for acute CVA or other acute intracranial process." - Management plan: - Consulted Infectious Diseases and General Surgery in regards to heel ulcer. - S/p wound debridement. Dr. Peterson has cleared for discharge from a surgical standpoint -ID recommended 6 weeks of vancomycin which will be given during hemodialysis. -Nephrology Dr. Flores informed who will arrange for antibiotics during dialysis. # Suspect Type II Non-ST Segment Elevation Myocardial Infarction (Demand Ischemia) due to above # Coronary Artery Disease s/p PCI (08/11/2022) # Hypertension # Hyperlipidemia Recently underwent PCI to RCA on 08/11/2022. Plan was for staged PCI given advanced LAD disease. - Evaluation thus far: - EKG: reportedly without STEMI. - Serial troponin: 68.7 -> 64.6 - Transthoracic echocardiogram (Aug 2022) = "1. normal left ventricular ejection fraction 50-55% 2. mild mitral regurgitation 3. mild tricuspid regurgitation 4. moderate diastolic dysfunction 5. right ventricular systolic pressure is elevated 60-65 mmHg" - Management plan: -Cardiology consulted. Dr. Uribe recommended outpatient evaluation for repeat cardiac cath. - Continued home aspirin, metoprolol, lisinopril, clopidogrel, atorvastatin # Hypoglycemia in Type II Diabetes Mellitus - PRN D50W for hypoglycemia # End-Stage Renal Disease on MWF iHD # Anemia of Chronic Kidney Disease - Nephrology consulted. Patient underwent routine hemodialysis. # Hypothyroidism - Continued home levothyroxine
== END 2022-10-27 10:43 | disposition home health service (06) | DRG 853 ==
LOC: ER 19:34 → ERHOLD 23:39 → OBSVTOIN 10-13 11:49 → 3RD-ICU 10-13 14:35 → 2ND 10-18 02:22
PROVIDERS: ADMIT Hospitalist; ATTEND Internal Medicine
PROC: 5A1D70Z Performance of Urinary Filtration, Intermittent, Less than 6 Hours Per Day (ICD-10-PCS; principal; 2022-10-14)
PROC: 0JBQ0ZZ Excision of Right Foot Subcutaneous Tissue and Fascia, Open Approach (ICD-10-PCS; 2022-10-24)
DX: A41.9 Sepsis, unspecified organism (principal); E43 Unspecified severe protein-calorie malnutrition; G92.8 Other toxic encephalopathy; R65.21 Severe sepsis with septic shock; N18.6 End stage renal disease; I21.A1 Myocardial infarction type 2; N39.0 Urinary tract infection, site not specified; B49 Unspecified mycosis; I12.0 Hypertensive chronic kidney disease with stage 5 chronic kidney disease or end stage renal disease; F05 Delirium due to known physiological condition; L97.412 Non-pressure chronic ulcer of right heel and midfoot with fat layer exposed; E87.1 Hypo-osmolality and hyponatremia; M86.8X7 Other osteomyelitis, ankle and foot; E11.52 Type 2 diabetes mellitus with diabetic peripheral angiopathy with gangrene; E11.649 Type 2 diabetes mellitus with hypoglycemia without coma; E87.6 Hypokalemia; E03.9 Hypothyroidism, unspecified; E11.22 Type 2 diabetes mellitus with diabetic chronic kidney disease; E11.69 Type 2 diabetes mellitus with other specified complication; E11.40 Type 2 diabetes mellitus with diabetic neuropathy, unspecified; D63.1 Anemia in chronic kidney disease; E11.43 Type 2 diabetes mellitus with diabetic autonomic (poly)neuropathy; K31.84 Gastroparesis; E11.621 Type 2 diabetes mellitus with foot ulcer; N25.0 Renal osteodystrophy; E66.9 Obesity, unspecified; E78.00 Pure hypercholesterolemia, unspecified; F41.9 Anxiety disorder, unspecified; F39 Unspecified mood [affective] disorder; I25.10 Atherosclerotic heart disease of native coronary artery without angina pectoris; I25.2 Old myocardial infarction; R77.8 Other specified abnormalities of plasma proteins; R44.1 Visual hallucinations; Z88.5 Allergy status to narcotic agent; Z88.8 Allergy status to other drugs, medicaments and biological substances; Z79.4 Long term (current) use of insulin; Z78.1 Physical restraint status; Z95.5 Presence of coronary angioplasty implant and graft; Z99.2 Dependence on renal dialysis; Z68.28 Body mass index [BMI] 28.0-28.9, adult; Z90.49 Acquired absence of other specified parts of digestive tract; Z79.02 Long term (current) use of antithrombotics/antiplatelets; Z79.82 Long term (current) use of aspirin; Z91.048 Other nonmedicinal substance allergy status; Z79.899 Other long term (current) drug therapy; Z96.653 Presence of artificial knee joint, bilateral
CPT/HCPCS: 36415; 70450; 70551; 71045; 80048; 80053; 80202; 81001; 82140; 82533; 82607; 82805; 82947; 83036; 83735; 84100; 84132; 84145; 84439; 84443; 84484; 85025; 85610; 87040; 87086; 87088; 88304; 90935; 93005; 96372; 96374; 97116; 97161; 97165; 99283; 99285; G0378; J0696; J1630; J1644; J1815; J2001; J2248; J2250; J2405; J2704; J2765; J3010; J3411; J3475; J3480; J3486; J3590; J7040; J7050; Q5106

== ENCOUNTER 2022-11-09 13:24 | Emergency (ER) | payer OTHER ==
--- OUTSIDE RECORDS SUMMARY | 2022-11-09 13:37 | XMS REPORT | Continuity of Care Document ---
:1955 Author Organization [facility] t Address [address] [place] [address] [place] [id number] Care Team Providers Name Role Phone Dann Hernandez Primary Care Physician [id number] Attending Clinician Unavailable Dann Hernandez Attending Clinician Unavailable Forest Schmid Attending Clinician Unavailable Joaquín Myrick Attending Clinician Unavailable Alexandra Arrieta Attending Clinician Unavailable FAUSTO MORAES Attending Clinician Unavailable Joseph RAYO, Daija Attending Clinician Unavailable BROOKLYN URBAN Attending Clinician Unavailable Cori ARIAS, Katherin Angulo Attending Clinician Brooklyn Urban DO Attending Clinician Adonis Gaytan Attending Clinician Unavailable Eugenio BURROUGHS, Jose Keller Attending Clinician Benjie BURROUGHS, Reji Baldwin Attending Clinician Ce Knutson NP Attending Clinician CARSON IVERSON Attending Clinician Unavailable Yvan BURROUGHS, Jory Nguyen Attending Clinician [phone] Mao MEDICAL SALES SPECIALIST, Corrina To Attending Clinician [phone] Doctor Unassigned, [place] Attending Clinician Unavailable Funmi Allen MA Attending [...] Attending Clinician BO CARTER Attending Clinician Unavailable [id number] Admitting Clinician Unavailable Forest Schmid Admitting Clinician Unavailable FAUSTO MORAES Admitting Clinician Unavailable BROOKLYN URBAN Admitting Clinician Unavailable Brooklyn Urban DO Admitting Clinician Delmy Ashton Admitting Clinician Unavailable JOSE BECKER Admitting Clinician Unavailable SUSAN WHITE Admitting Clinician Unavailable MD TUSHAR REYES Admitting Clinician Unavailable Fausto Moraes MD Admitting Clinician TUSHAR REYES Admitting Clinician Unavailable Payers Payer Name Policy Type Policy Number Effective Date Expiration Date Juan [facility] [id number] [facility] [id number] 2020 MCARE ADV 00:00:00 CHOICE PPO MEDICARE PART A [id number] 2020 \\T\\ B 00:00:00 [employer] MEDICARE 53 [id number] 2021 Common Sp rachelle 00:00:00 - [facility] Problems Condition Condition Condition Status Onset Resolution Last Treating Co mments Source Name Details Category Date Date Treatment Clinician Date PAD PAD Disease Active Univers (periphera (periphera 4-30 it y of l artery l artery 00:00: [place] disease) disease) 00 Medica l Branch Coronary Coronary Disease Active Unive rs artery artery 4-30 ity of disease disease 00:00: [place] involving involving 00 Medi jose wainwright wainwright Branch coronary coronary artery of artery of wainwright wainwright heart heart without without angina angina pectoris pectoris End stage End stage Disease Active Uni vers renal renal 4-30 ity of disease disease 00:00: [place] due to due to 00 Medical benign benign Branch hypertensi hypertensi on on Mixed Mixed Disease Active Univers hyperlipid hyperlipid 4-30 it y of emia emia 00:00: [place] 00 Medical Branch Dyslipidem Dyslipidem Disease Active U nivers ia ia 4-30 ity of 00:00: 00 Medical Branch Essential Essential Disease Active Uni vers hypertensi hypertensi 4-30 it y of on on 00:00: [place] 00 Medical Branch Type 2 Type 2 Disease Active Univers diabetes diabetes 4-30 ity of mellitus mellitus 00:00: [place] with other with other 00 Me dical specified specified Bran ch complicati complicati on on Lethargy Lethargy Disease Active Unive rs 4-29 ity of 00:00: [place] 00 Medical Branch CKD CKD Disease Active Overview: Method i (chronic (chronic 5-[address] kidney kidney 00:00: g of this Hospita disease), disease), 00 note l stage V stage V might be different from the original. Added automatic ally from request for surgery [id number] ESRD (end ESRD (end Disease Active 2019-07 Met hodi stage stage 1-05 st renal renal 00:00: Hospita disease) disease) 00 l on on dialysis dialysis [id number] Unsteady Problem Commo n gait [facility] Arrhythmia Arrhythmia Problem C ommon [facility] [id number] Retinopath Problem Com mon y [facility] [id number] Seasonal Problem Comm on allergies [facility] [id number] PUD Problem Common (peptic Spirit ulcer - CHI disease) [facility] [id number] Body mass Problem Com mon index [facility] [BMI] [facility] 38.0-38.9, [facility] [id number] Diabetic Problem Comm on polyneurop Spirit athy - CHI associated St with type [facility] 2 diabetes Medica l mellitus Center [id number] Morbid Problem Commo n [id number] (severe) Spirit obesity - CHI due to [facility] Secondary Secondary Problem Com mon hyperparat hyperparat Sp rachelle hyroidism hyroidism, - C HI not [facility] Medica l Center Athscl Athscl Problem Common wainwright wainwright Spirit arteries arteries - CHI of of extremitie extremitie Ely kes s w s w Medical ulceration ulceration Ce nter Non-pressu Non-pressu Problem C ommon re chronic re chronic Sp rachelle ulcer of ulcer of - CHI other part other part St of right of right [facility] foot with foot with Medi jose unspecifie unspecifie Ce nter d severity d severity Chronic Chronic Problem Common congestive diastolic Spi rit heart CHF - CHI failure (congestiv [facility] heart [facility] failure) Medical Center [id number] Stented Problem Commo n coronary [facility] artery - [facility] [id number] Oxygen Problem Commo n 07 dependent Spirit [facility] [id number] Anemia in Problem Com mon chronic Spirit illness - [facility] Allergic Non-season Problem Com mon rhinitis al Spirit allergic - [facility] , unspecifie d trigger Dependence Dialysis Problem Com mon on renal patient [facility] dialysis - [facility] Anxiety Anxiety Problem Common about about Spirit health health [facility] [id number] End stage Problem Comm on renal [facility] disease - [facility] Hypothyroi Hypothyroi Problem C ommon dism dism [facility] Cholelithi Gall Problem Commo n asis bladder Spirit without stones - [facility] obstructio [facility] Hypertensi Hypertensi Problem C ommon on on [facility] Type II Uncontroll Problem Comm on diabetes ed type 2 Spiri t mellitus diabetes - [facility] without mellitus St complicati with [facility] on insulin Medical therapy Center Gastroesop GERD Problem Commo n hageal (gastroeso Spirit reflux phageal - CHI disease reflux St disease) [facility] Vitamin D Vitamin D Problem Com mon deficiency deficiency Sp rachelle - CHI [facility] Carpal Carpal Problem Resolve 2021-08-25 Mem oria tunnel tunnel d 22:23:46 l syndrome syndrome Jacob n (disorder) (disorder) Resolved Problem 08/25/20211982 [facility] Problem Resolve 2021-08-25 Memoria delivery - delivery - d 22:23:46 l delivered delivered Herm emilia (finding) (finding) Resolved Problem 08/25/2021 1985 [facility] Fistula of Fistula Problem Resolve 2021-08-25 Memoria joint of joint d 22:23:46 l (disorder) (disorder) He rmann Resolved Problem 08/25/20212018 [facility] Fistula of Fistula Problem Resolve 2021-08-25 Memoria knee joint of knee d 22:23:46 l (disorder) joint Jacob n (disorder) Resolved Problem 08/25/20212020 [facility] Septic Septic Problem Resolve 2021-08-25 Me moria shock shock d 22:23:46 l (disorder) (disorder) He rmann Resolved Problem 08/25/2021 [facility] 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 Herm emilia (disorder) (disorder) Active Problem 08/25/2021 [facility] Hyperlipid Hyperlipi Problem Active 2021-08-25 Memoria emia demia 22:23:46 l (disorder) (disorder) He rmann Active Problem 08/25/2021 [facility] Paresthesi Paresthes Problem Active 2021-08-25 Memoria a ia 22:23:46 l (finding) (finding) Herm emilia Active Problem 08/25/2021 [facility] Paresthesi Paresthes Problem Active 2021-08-25 Memoria a of hand ia of hand 22:23:46 l (finding) (finding) Herm emilia Active Problem 08/25/2021 [facility] Tremor Tremor Problem Active 2021-08-25 Jairo frida (finding) (finding) 22:23:46 l Active Lewis Problem 08/25/2021 [facility] Allergies, Adverse Reactions, Alerts Allergy Allergy Status Severity Reaction(s) Onset Inactive Treating Comm ents Source Name Type Date Date Clinician OXYCODON DRUG Active Hallucinates Un hellen MCCOLLUM 11-04 ity of 00:00: [address] Branch PHENERGA DRUG Active Other-Cmnt Univ ers N PLAIN 11-04 ity of 00:00: [place] 00 Medical Branch ADHESIVE Drug Active Rash Univers Class - ity of 00:00: [place] Medical [facility] Adhesive Propensi Active Rash Univer s ty to 11-04 ity of adverse 00:00: [place] reaction 00 Medical s Branch Oxycodon Propensi Active Hallucinatio Univers e ty to ns 11-04 ity of adverse 00:00: [place] reaction 00 Medical s Branch Phenerga Propensi Active Other - See Sweats U nivers n Plain ty to comments 11-04 and ity of adverse 00:00: shakes [place] reaction 00 Medical s Branch Prometha Propensi Active Other (See Cold Me [...] U 2000-07 [facility] 08-06 Clear 00:00: Hernandez [facility] CODEINE DA Active U HALLUCINATIO 2000-07 [facility] N 08-06 Clear 00:00: [facility] No Known DA Active U 2000-07 [facility] Contrast 08-06 Clear Allergie 00:00: Hernandez s [facility] No Known DA Active U 2000-07 [facility] Food 08-06 Clear Allergie 00:00: Hernandez s 00 [facility] No Known DA Active U 2000-07 [facility] Other 08-06 Clear Allergie 00:00: Hernandez s [facility] Opioids Propensi Active Rash Hallucina Meth deonte - ty to 6-17 tions ( st Morphine adverse 00:00: [facility] Analogue reaction 00 craw over l s s to body).Oth drug er reaction( s): Anaphylax ishalluci nations codeine codeine Active Memoria l Lewis Phenerga Phenerga Active Memori a n n l Lewis Tape Tape Active Memoria l [place] prometha prometha Active Unknown Commo n zine zine Spirit - CHI [facility] codeine codeine Active Unknown Common Spirit - CHI [facility] NO KNOWN Drug Active Univers ALLERGIE Class ity of S [place] [facility] Family History Family Member Diagnosis Comments Start Date Stop Date Source Natural [facility] Natural father [facility]oph[facility]bitis [facility] Natural mother Diabetes [facility] Natural mother Hyperlipidemia [facility] Natural mother Hypertension [facility] Natural mother Kidney disease Method [facility] Social History Social Habit Start Date Stop Date Quantity Comments Source History of Tobacco Common Spirit - Use [facility] History SDOH University o f Alcohol Std Drinks [place] [facility] History SDOH University o f Alcohol Binge [place] Medic al Branch History SDOH Social Unive rsity of Connections [facility] Med ical Together Branch History SDOH Social Unive rsity of Connections [facility] Medical Branch History SDOH Social Unive rsity of Connections [place] Medical Membership Branch History SDOH Social Unive rsity of Connections [place] Medical Meetings Branch Gender identity [facility] Sexual orientation Method [facility] History SDOH 2022-11-06 2022-11-06 1 University o f Alcohol Frequency 00:00:00 00:00:00 [place] M edical Branch History SDOH Social 2022-11-06 2022-11-06 5 Unive rsity of Connections Phone 00:00:00 00:00:00 [place] M edical Branch History SDOH Social 2022-11-06 2022-11-06 5 Unive rsity of Connections Living 00:00:00 00:00:00 [place] Medical Branch History SDOH 2022-11-06 2022-11-06 0 University o f Physical Activity 00:00:00 00:00:00 [place] M edical DPW Branch History SDOH 2022-11-06 2022-11-06 0 University o f Physical Activity 00:00:00 00:00:00 [place] M edical MPS Branch History SDOH 2022-11-06 2022-11-06 5 University o f Financial 00:00:00 00:00:00 [place] Medical Branch History SDOH Food 2022-11-06 2022-11-06 1 Univers ity of Worry 00:00:00 00:00:00 [place] Medical Branch History SDOH Food 2022-11-06 2022-11-06 1 Univers ity of Scarcity 00:00:00 00:00:00 [place] Medical [facility] History SDOH 2022-11-06 2022-11-06 2 University o f Transport Med 00:00:00 00:00:00 [place] Medic al Branch History SDIN 2022-11-06 2022-11-06 2 University o f Transport Non-Med 00:00:00 00:00:00 [place] M edical Branch History SDIN 2022-11-06 2022-11-06 2 University o f Housing Unable to 00:00:00 00:00:00 [place] M edical Pay Branch History SDIN 2022-11-06 2022-11-06 1 University o f Housing Places 00:00:00 00:00:00 [place] Medi jose Lived Branch History SDIN 2022-11-06 2022-11-06 2 University o f Housing Homeless 00:00:00 00:00:00 [place] dickaushal Last Year Branch Exposure to 2022-10-25 2022-11-04 Not sure University of SARS-CoV-2 (event) 00:00:00 13:19:00 [place] Medical [facility] History of Social 2022-10-09 2022-10-[address] function 00:00:00 00:00:00 Hospital Alcohol intake 2022-04-27 2022-04-27 Current drinker Metho dist 00:00:00 00:00:00 of alcohol Hospital (finding) Tobacco use and 2022-04-26 2022-04-26 Smokeless Mormon exposure 00:00:00 00:00:00 tobacco non-user Hospital Cigarettes smoked 2022-04-26 2022-04-[address] current (pack per 00:00:00 00:00:00 Hospita l day) - Reported Cigarette 2022-04-26 2022-04-26 [facility] pack-years 00:00:00 00:00:00 Hospital Social History 2021-02-23 2021-02-23 [facility] 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 20:24:04 20:24:04 Alcohol Comment 2020-03-23 2020-03-23 RARELY [facility] 00:00:00 00:00:00 Hospital Sex [birth year] At [birth year] [facility] 00:00:00 00:00:00 Hospital Smoking Status Start Date Stop Date Source Unknown if ever smoked [facility] Never smoked tobacco [facility] [place] [facility] Former Smoker 2022-08-11 00:00:00 2022-08-11 00:00:00 Common S pirit - CHI [facility] Ce nter Medications Ordered Filled Start Stop Current Ordering Indication Dosage Frequency Signature Comments Components Source Medication Medication Date Date Medication? Clinician (SIG) Name Name mupirocin Yes Nasal, Univer s (BACTROBAN 5-02 Q12H, For ity of NASAL OINT) 18:45: 5 days, Negr[place] as 2 % nasal 33 First dose Medi jose ointment conditiona Bran h l, Routine insulin Yes 30U inject 30 Unive rs lispro 100 5-02 Units ity of unit/mL 17:42: under the [place] in 52 skin in [facility] morning and 30 Units at noon and 30 Units in the evening. Sliding scale Insulin Yes 45U inject 45 Unive rs Glargine 5-02 Units ity of (LANTUS 17:42: under the [place] SOLOSTAR 52 skin in [facility] U-100 [facility] INSULIN) morning 100 unit/mL and 45 (3 mL) Units in injection the evening. amLODIPine Yes 10mg Take 1 Unive rs 10 mg 5-02 tablet by ity of tablet 17:42: mouth in [place] [address] the Medical morning. Branch buPROPion Yes 150mg Take 1 Unive rs SR 150 mg 5-02 tablet by ity o f SR tablet 17:42: mouth in [place] [address] the Medical morning. Branch furosemide Yes 160mg Take 2 Univ ers 80 mg 5-02 tablets by ity of tablet 17:42: mouth in [place] [address] the Medical morning. Branch lisinopriL Yes 5mg Take 1 Unive rs 5 mg tablet 5-02 tablet by ity of 17:42: mouth in [place] [address] the Medical morning. Branch metoprolol Yes 50mg Take 1 Unive rs succinate 5-02 tablet by ity o f XL 50 mg 24 17:42: mouth in [place] hr tablet 52 the Medical morning Branch and 1 tablet in the evening. pantoprazol Yes 40mg Take 1 Univ ers e 40 mg EC 5-02 tablet by ity of tablet 17:42: mouth in [place] [address] the Medical morning. Branch Levothyroxi Yes 150ug Take 150 U nivers ne 100 mcg 5-02 mcg by ity of capsule 17:42: mouth [place] [address] daily. Medical Branch aspirin 81 0 Yes 81mg Take 81 mg U nivers mg Cap 5-02 by mouth ity of 17:42: in the [place] [address] morning. Medical Branch Cholecalcif Yes Take by Uni vers daryl, 5-02 mouth. ity of Vitamin D3, 17:42: [place] 25 [facility] Medical (1,000 Branch unit) capsule folic Yes Take by Univers acid/multiv 5-02 mouth ity of it-min/lute 17:42: [place]. [place] in (CENTRUM 52 Medical SILVER Branch ORAL) vitamin 0 Yes 100ug Take 1 Univers B-12 100 5-02 tablet by ity of mcg tablet 17:42: mouth [place] [address] every Medical morning. Branch loratadine Yes Univers 10 mg 5-02 ity of tablet 17:42: [place] [address] Medical Branch multivitami 0 Yes Take by Uni vers n (MULTIPLE 5-02 mouth. ity of VITAMIN 17:42: [place] ESSENTIAL Medical ORAL) Branch fenofibrate Yes 200mg Take 1 Uni vers micronized 5-02 capsule by ity of 200 mg 17:42: mouth. [place] capsule Medical Branch polyethylen 0 Yes 17g Take 1 Univ ers e glycol 5-02 Packet by ity of 3350 17 17:42: mouth. [place] gram powder Medical Branch clopidogreL 0 Yes 75mg Take 1 Univ ers (PLAVIX) 75 5-02 tablet by ity of mg tablet 17:42: mouth in [facility] 52 the Medical morning. Branch insulin 0 Yes 30U inject 30 Unive rs lispro 100 5-02 Units ity of unit/mL 17:42: under the [place] inph 52 skin in Medical the Branch morning and 30 Units at noon and 30 Units in the evening. Sliding scale Insulin 2022-0 Yes 45U inject 45 Unive rs Glargine 5-02 Units ity of (LANTUS 17:42: under the [place] SOLOSTAR 52 skin in [facility] U-100 the Branch INSULIN) morning 100 unit/mL and 45 (3 mL) Units in injection the evening. amLODIPine 2022-0 Yes 10mg Take 1 Unive rs 10 mg 5-02 tablet by ity of tablet 17:42: mouth in [place] [address] the Medical morning. Branch buPROPion 0 Yes 150mg Take 1 Unive rs SR 150 mg 5-02 tablet by ity o f SR tablet 17:42: mouth in [place] [address] the Medical morning. Branch furosemide 0 Yes 160mg Take 2 Univ ers 80 mg 5-02 tablets by ity of tablet 17:42: mouth in [place] [address] the Medical morning. Branch lisinopriL 0 Yes 5mg Take 1 Unive rs 5 mg tablet 5-02 tablet by ity of 17:42: mouth in [place] [address] the Medical morning. Branch metoprolol 0 Yes 50mg Take 1 Unive rs succinate 5-02 tablet by ity o f XL 50 mg 24 17:42: mouth in [place] [facility] 52 the Medical morning Branch and 1 tablet in the evening. pantoprazol 0 Yes 40mg Take 1 Univ ers e 40 mg EC 5-02 tablet by ity of tablet 17:42: mouth in [place] [address] the Medical morning. Branch Levothyroxi Yes 150ug Take 150 U nivers ne 100 mcg 5-02 mcg by ity of capsule 17:42: mouth [place] [address] daily. Medical Branch aspirin 81 2022-0 Yes 81mg Take 81 mg U nivers mg Cap 5-02 by mouth ity of 17:42: in the [place] [address] morning. Medical Branch Cholecalcif 0 Yes Take by Uni vers daryl, 5-02 mouth. ity of Vitamin D3, 17:42: [place] 25 [facility] Medical (1,000 Branch unit) capsule folic 0 Yes Take by Univers acid/multiv 5-02 mouth ity of it-min/lute 17:42: [place]. [place] in (CENTR 52 Medical SILVER Branch ORAL) vitamin Yes 100ug Take 1 Univers B-12 100 5-02 tablet by ity of mcg tablet 17:42: mouth [place] [address] every Medical morning. Branch loratadine Yes Univers 10 mg 5-02 ity of tablet 17:42: [place] [address] Medical Branch multivitami Yes Take by Uni vers n (MULTIPLE 5-02 mouth. ity of VITAMIN 17:42: [place] [address] Medical ORAL) Branch fenofibrate Yes 200mg Take 1 Uni vers micronized 5-02 capsule by ity of 200 mg 17:42: mouth. [place] capsule [address] [place] [address] Branch polyethylen Yes 17g Take 1 Univ ers e glycol 5-02 Packet by ity of 3350 17 17:42: mouth. [place] gram powder Medical Branch clopidogreL Yes 75mg Take 1 Univ ers (PLAVIX) 75 5-02 tablet by ity of mg tablet 17:42: mouth in [place] [address] the Medical morning. Branch mupirocin 2 Yes [id number] .5g Use 0.5 g Univers % nasal 5-02 in each ity of ointment 00:00: nostril [place] [address] every 12 Medical (twelve) Branch hours. mupirocin 2 Yes [id number] .5g Use 0.5 g Univers % nasal 5-02 in each ity of ointment 00:00: nostril [place] 00 every 12 Medical (twelve) Branch hours. atorvastati 2022- Yes [id number] 40mg Take 1 Univers n 40 mg 5-02 06-02 tablet by ity of tablet 00:00: 04:59 mouth at [place] 00 :00 bedtime Medical for 30 Branch days. atorvastati 2022- Yes [id number] 40mg Take 1 Univers n 40 mg 5-02 06-02 tablet by ity of tablet 00:00: 04:59 mouth at [place] 00 :00 bedtime Medical for 30 Branch days. mupirocin Yes [id number] Uni vers (BACTROBAN 5-01 ity of OINT) 2 % 19:00: [place] skin 00 Medical ointment Branch heparin 2022- No [id number] 4600U DIALYSIS Univers 1,000 11-06 ONCE - PT ity of unit/mL 15:15: 16:26 ROOM, 1 [place] injection 00 :00 dose, On Medica l 4,600 Units 11/06/22 Br anch at 1015, Routine
A port : 2.3 ml V port : 2.3 ml To verónica: 4.6 ml
sulfur 2022-0 2022- No [id number] 5mL 5 mL, Unive rs hexafluorid 30 04-30 Intravenou i ty of e microsphr 15:15: 15:15 s, ONCE, 1 [place] (LUMASON) 00 :00 dose, On Medica l injection 5 Sun Branch mL 11/05/22 at 1015, Routine
grocery team member approving Restricted medication : KIMBERLY TORRES polyethylen 2022-0 Yes 17g 17 g, Unive rs e glycol 430 Oral, ity of 3350 powder 14:00: DAILY, [place] 17 g 00 First dose Medical on [facility] 11/05/22 at 0900, Until Discontinu ed, Routine pantoprazol 0 Yes 40mg 40 mg, Univ ers e 4-30 Oral, ity of (PROTONIX) 14:00: DAILY, [place] EC tablet 00 First dose Medi jose 40 mg on [facility] 11/05/22 at 0900, Until Discontinu ed, Routine lisinopriL 0 Yes 5mg 5 mg, Univer s (PRINIVIL,Z 4-30 Oral, ity of ESTRIL) 14:00: DAILY, [place] tablet 5 mg 00 First dose Me dical on [facility] 11/05/22 at 0900, Until Discontinu ed, Routine furosemide 2022-0 Yes 160mg 160 mg, Uni vers (LASIX) 4-30 Oral, ity of tablet 160 14:00: DAILY, [place] mg 00 First dose Medical on [facility] 11/05/22 at 0900, Until Discontinu ed, Routine clopidogreL 2022-0 Yes 75mg 75 mg, Univ ers (PLAVIX) 75 4-30 Oral, ity of mg tablet 14:00: DAILY, [place] 75 mg 00 First dose Medical on [facility] 11/05/22 at 0900, Until Discontinu ed, Routine buPROPion Yes 150mg 150 mg, Univ ers SR 4-30 Oral, ity of (WELLBUTRIN 14:00: DAILY, [place] SR) tablet 00 First dose Med ical 150 mg on [facility] 11/05/22 at 0900, Until Discontinu ed, Routine aspirin EC Yes 81mg 81 mg, Unive rs tablet 81 30 Oral, ity of mg 14:00: DAILY, [place] 00 First dose Medical on [facility] 11/05/22 at 0900, Until Discontinu ed Sliding Yes Subcutaneo Univ ers Scale 4-30 us, TID ity of Insulin - 13:00: MEALS+HS, [place] as Lispro 00 First dose Medical (HumaLOG) on [facility] 11/05/22 at 0800, Until Discontinu ed, Routine sevelamer Yes 800mg 800 mg, Univ ers (RENVELA) 4-30 Oral, TID ity o f tablet 800 13:00: MEALS, [place] mg 00 First dose Medical on [facility] 11/05/22 at 0800, Until Discontinu ed, Routine psyllium Yes 1{packe 1 Packet, U nivers husk 4-30 t} Oral, BID, ity of (METAMUCIL 13:00: First dose [place] (SUGAR 00 on [facility] FREE)) 3.4 11/05/22 at [facility] gram oral 0800, powder Until packet 1 Discontinu Packet ed, Routine cholecalcif Yes 2000U 2,000 Univ ers daryl 4-30 Units, ity of (vitamin 13:00: Oral, BID [place] D3) tablet 00 MEALS, Medical 2,000 Units First dose Br anch on 11/05/22 at 0800, Until Discontinu ed glucagon Yes 1mg 1 mg, Univers (GLUCAGEN 30 Intramuscu ity of DIAGNOSTIC 12:13: [place], PRN, [place] KIT) 03 Starting Medical injection 1 on [facility] mg 11/05/22 at 0713, Until Discontinu ed, VIOLETTA, Blood Glucose < or = 70 mg/dL and patient is NPO, unable to swallow or has mental changes. dextrose 50 Yes 25mL 25 mL, Univ ers % in water 4-30 Slow IV ity of (D50W) 12:13: Push, PRN, [place] injection 03 Starting Medica l 25 mL on [facility] 11/05/22 at 0713, Until Discontinu ed, VIOLETTA, Blood Glucose < or = 70 mg/dL and patient is NPO, unable to swallow or has mental status changes. levothyroxi Yes 150ug 150 mcg, U nivers ne 4-30 Oral, ity of (SYNTHROID) 11:00: QAM-0600, [place] tablet 150 00 First dose Med ical mcg on [facility] 11/05/22 at 0600, Until Discontinu ed, Routine heparin Yes 5000U 5,000 Univers (porcine) 4-30 Units, ity of injection 03:00: [place]cutaneo [place] 5,000 Units 00 us, Q8H, Medi jose First dose Branch on 11/04/22 at 2200, Until Discontinu ed, Routine ondansetron Yes 4mg 4 mg, Slow Univers (ZOFRAN 4-30 IV Push, ity of (PF)) 02:39: Q6HPRN, [place] injection 4 30 Nausea and Me dical mg Vomiting Branch (N/V), Starting on 11/04/22 at 213
Do ses of ondansetro n 16 mg and above need to be administer ed via IV piggyback. For Dose >=24mg ECG monitoring is advisable.
KCL 2022-0 202- No 40meq 40 mEq, Univers (KLOR-CON 4-30 04-30 Oral, ity of M20) tablet 02:15: 03:06 ONCE, 1 [place] 40 mEq 00 :00 dose, On Medical Sat Branch 11/04/22 at 2115, Routine HYDROcodone 2022-0 Yes 1{tbl} 1 tablet, Univers -acetaminop 4-30 Oral, ity of hen (NORCO 02:03: Q6HPRN, [place] 5) 5-325 mg 40 Starting Medi jose tablet 1 on Sat Branch tablet 11/04/22 at 2103, Until Discontinu ed, Routine, Pain (scale 7-10) traMADoL 2023-0 Yes 50mg 50 mg, Univers (ULTRAM) 4-30 Oral, ity of tablet 50 02:03: Q6HPRN, [place] mg 11 Starting Medical on [facility] 11/04/22 at 2103, Until Discontinu ed, Routine, Pain (scale 4-6) atorvastati 0 Yes 40mg 40 mg, Univ ers n (LIPITOR) 4-30 Oral, QHS, it y of tablet 40 02:00: First dose [place] mg 00 on [facility] 11/04/22 at Branch 2100, Until Discontinu ed, Routine metoprolol Yes 50mg 50 mg, Unive rs succinate 4-30 Oral, BID, ity of XL (TOPROL 01:45: First dose [place] XL) tablet 00 on [facility] 50 mg 11/04/22 at Branch 2045, Until Discontinu ed, Routine potassium 2022- No 10meq 10 mEq, IV Univers chloride in 11-04 Piggyback, i ty of water 10 22:15: 00:08 ONCE, 1 [place] mEq/100 mL 00 :00 dose, On Medic al RTU 10 mEq [facility] 11/04/22 at 1715, Administer over 60 Minutes, 100 mL acetaminoph Yes 650mg 650 mg, Un hellen en 11-04 Oral, ity of (TYLENOL) 21:56: Q6HPRN, [place] tablet 650 18 Starting Medic al mg on [facility] 11/04/22 at 1656, Until Discontinu ed, Routine, Pain (scale 1-3) KCL 2022-0 2022- No 20meq 20 mEq, Univers (KLOR-CON 11-04 Oral, ity of M20) tablet 21:30: 22:08 ONCE, 1 [place] 20 mEq 00 :00 dose, On Medical [facility] 11/04/22 at 1630, VIOLETTA FENTanyl PF 2022-0 2022- No 25ug 25 mcg, Un hellen (SUBLIMAZE 11-04 Slow IV ity o f (PF)) 20:45: 20:53 Push, [place] injection 00 :00 ONCE, 1 Medical 25 mcg dose, On Branch [facility] 11/04/22 at 1545, STAT sevelamer 0 Yes 3200mg Take 4 Univ ers 800 mg 1-03 tablets by ity of tablet 00:00: mouth. [address] sevelamer 0 Yes 3200mg Take 4 Univ ers 800 mg 1-03 tablets by ity of tablet 00:00: mouth. [address] buPROPion 2021-07 Yes 150mg Q.5D Take 150 [...] 2021-07 Yes 2000U QD Take 2,000 Methodi drayl, 0-[address] vitamin D3, 12:56: [...] needed for l heartburn. traMADoL 2021-07 No 17412 50mg Q8H Take 1 Metho di (Ultram) 50 0-19 10-25 tablet (50 s t mg tablet 00:00: 04:59 mg total) Ho spita 00 :00 by mouth l every 8 (eight) hours as needed for moderate pain for up to 5 days .acute pain. traMADoL 2021-07- No [id number] 50mg Q8H Take 1 Metho di (Ultram) 50 0-19 10-25 tablet (50 s t mg tablet 00:00: 04:59 mg total) Ho spita 00 :00 by mouth l every 8 (eight) hours as needed for moderate pain for up to 5 days .acute pain. traMADoL 2021-07 50mg Q8H Take 1 Metho di (Ultram) [...] to 5 days .acute pain. traMADoL 2021-07 50mg Q8H Take 1 Metho di (Ultram) 50 0-19 10-25 tablet (50 s t mg tablet 00:00: 04:59 mg total) Ho spita 00 :00 by mouth l every 8 (eight) hours as needed for moderate pain for up to 5 days .acute pain. traMADoL 2021-07 50mg Q8H Take 1 Metho di (Ultram) 50 0-19 10-25 tablet (50 s t mg tablet 00:00: 04:59 mg total) Ho spita 00 :00 by mouth l every 8 (eight) hours as needed for moderate pain for up to 5 days .acute pain. traMADoL 2021-07 50mg Q8H Take 1 Metho di (Ultram) 50 0-19 10-25 tablet (50 s t mg tablet 00:00: 04:59 mg total) Ho spita 00 :00 by mouth l every 8 (eight) hours as needed for moderate pain for up to 5 days .acute pain. traMADoL 2021-07 50mg Q8H Take 1 Metho di (Ultram) [...] tena 00 by mouth l nightly. lactulose 2022-0 Yes Q.5D Take by Metho [...] No TAKE 1 Met hodi in HCl 03-21 10-[address] (CIPRO) 250 00:00: [...] TWICE l DAILY UNTIL ALL TAKEN. traMADoL 59215 50mg Q8H Take 1 Metho di (Ultram) 50 03-06 09-04 tablet (50 s t mg tablet 00:00: 04:59 mg total) Ho spita 00 :00 by mouth l every 8 (eight) hours as needed for moderate pain for up to 5 days .acute pain. traMADoL [id number] 50mg Q8H Take 1 Metho di (Ultram) 50 03-06-04 tablet (50 s t mg tablet 00:00: 04:59 mg total) Ho spita 00 :00 by mouth l every 8 (eight) hours as needed for moderate pain for up to 5 days .acute pain. traMADoL 00532 50mg Q8H Take 1 Metho di (Ultram) 50 03-06-04 tablet (50 s t mg tablet 00:00: 04:59 mg total) Ho spita 00 :00 by mouth l every 8 (eight) hours as needed for moderate pain for up to 5 days .acute pain. traMADoL 07481 50mg Q8H Take 1 Metho di (Ultram) [...] days .acute pain. traMADoL 2021-0 2021- [place] [id number] 50mg Q8H Take 1 Metho di (Ultram) 50 - 09-04 tablet (50 s t mg tablet 00:00: 04:59 mg total) Ho spita 00 :00 by mouth l every 8 (eight) hours as needed for moderate pain for up to 5 days .acute pain. traMADoL 2021-0 2021- No 13749 50mg Q8H Take 1 Metho di (Ultram) [...] amoxicillin 2022-0 2022- No Metho di (AMOXIL) 8- 10-17 st 500 MG 00:00: 00:00 Hospita capsule 00 :00 l amoxicillin 2022-0 2022- No Metho di (AMOXIL) 8- 10-17 st 500 MG 00:00: 00:00 Hospita capsule 00 :00 l amoxicillin 2022-0 2022- No Metho di (AMOXIL) 8- 10-17 st 500 MG 00:00: 00:00 Hospita capsule 00 :00 l amoxicillin 2022-0 2022- No Metho di (AMOXIL) 02-27 10-17 st 500 MG 00:00: 00:00 Hospita capsule 00 :00 l amoxicillin 2022-0 2022- No Metho di (AMOXIL) 02-27 10-17 st 500 MG 00:00: 00:00 Hospita capsule 00 :00 l amoxicillin 2022-0 2022- No Metho di (AMOXIL) 02-27 10-17 st 500 MG 00:00: 00:00 Hospita capsule 00 :00 l amoxicillin 2022-0 2022- No Metho di (AMOXIL) 02-27 10-17 st 500 MG 00:00: 00:00 Hospita capsule 00 :00 l amoxicillin 2022-0 2022- No Metho di (AMOXIL) 02-27 10-17 st 500 MG 00:00: 00:00 Hospita capsule 00 :00 l amoxicillin 2022-0 2022- No Metho di (AMOXIL) 02-27 10-17 st 500 MG 00:00: 00:00 Hospita [...] tablet 00:00: Hospit a 00 l ciprofloxac 2-0 2022- No 500mg QD Take [...] For l 2 more days ciprofloxac 0 2021- No 500mg QD Take 500 Methodi [...] st MG tablet 00:00: Hospita 00 l docusate 2021-0 Yes 100mg Take 1 Univer s (COLACE) 3-19 capsule by ity o f 100 mg 00:00: mouth. [place] capsule 00 Medical Branch psyllium 2021-0 Yes 1{packe Take 1 Univ ers husk 3-19 t} Packet by ity of (METAMUCIL 00:00: mouth. [place] FIBER 00 Medical SINGLES) Branch 3.4 gram oral powder packet docusate 2021-0 Yes 100mg Take 1 Univer s (COLACE) 3-19 capsule by ity o f 100 mg 00:00: mouth. [place] capsule 00 Medical Branch psyllium 2021-0 Yes 1{packe Take 1 Univ ers husk 3-19 t} Packet by ity of (METAMUCIL 00:00: mouth. [place] FIBER 00 Medical SINGLES) Branch 3.4 gram oral powder packet psyllium 2-0 Yes 3.4g Take 3.4 g Met hodi (METAMUCIL) 3-[address] 3.4 gram 00:00: Hospita packet 00 l psyllium 2022-0 Yes 3.4g Take 3.4 g Met hodi (METAMUCIL) 3-[address] 3.4 gram 00:00: Hospita packet 00 l psyllium 2022-0 Yes 3.4g Take 3.4 g Met hodi (METAMUCIL) 3-[address] 3.4 gram 00:00: Hospita packet 00 l psyllium 2022-0 Yes 3.4g Take 3.4 g Met hodi (METAMUCIL) 3-[address] 3.4 gram 00:00: Hospita packet 00 l psyllium 2022-0 Yes 3.4g Take 3.4 g Met hodi (METAMUCIL) 3-[address] 3.4 gram 00:00: Hospita packet 00 l psyllium 2-0 Yes 3.4g Take 3.4 g Met hodi (METAMUCIL) 3-[address] 3.4 gram 00:00: Hospita packet 00 l psyllium 2-0 Yes 3.4g Take 3.4 g Met hodi (METAMUCIL) 3-[address] 3.4 gram 00:00: Hospita packet 00 l psyllium 2022-0 Yes 3.4g Take 3.4 g Met hodi [...] 0 l mg-40 mg 20:29: Refill(s) [facility] emilia oral 00 delayed release tablet Centrum Yes PO, Daily, Jairo frida Silver 8-18 0 l Ultra 20:29: Refill(s) [facility] 00 Claritin Yes 10 mg = 1 Jairo frida 8-18 tab, PO, l 20:29: Daily, PRN [place] 00 Itching / rash / allergy symptoms, # 20 tab, 0 Refill(s) Stool Yes PO, Memoria Softener 8-18 Bedtime, 0 l with 20:29: Refill(s) [place] Laxative aspirin-ome No 1 tab, PO, Memoria prazole 325 8-18 Daily, 0 l mg-40 mg 20:29: Refill(s) [facility] emilia oral 00 delayed release tablet Centrum Yes PO, Daily, Jairo frida Silver 8-18 0 l Ultra 20:29: Refill(s) [place] Claritin Yes 10 mg = 1 Jairo frida 8-18 tab, PO, l 20:29: Daily, PRN [place] 00 Itching / rash / allergy symptoms, # 20 tab, 0 Refill(s) Stool Yes PO, Memoria Softener 8-18 Bedtime, 0 l with 20:29: Refill(s) [place] Laxative aspirin-ome No 1 tab, PO, Memoria prazole 325 8-18 Daily, 0 l mg-40 mg 20:29: Refill(s) [facility] emilia oral 00 delayed release tablet Centrum Yes PO, Daily, Jairo frida Silver 8-18 0 l Ultra 20:29: Refill(s) [place] Claritin Yes 10 mg = 1 Jairo frida 8-18 tab, PO, l 20:29: Daily, PRN [place] 00 Itching / rash / allergy symptoms, # 20 tab, 0 Refill(s) Stool Yes PO, Memoria Softener 8-18 Bedtime, 0 l with 20:29: Refill(s) [place] Laxative aspirin-ome No 1 tab, PO, Memoria prazole 325 8-18 Daily, 0 l mg-40 mg 20:29: Refill(s) [facility] em[facility] oral 00 delayed release tablet Centrum Yes PO, Daily, Jairo frida Silver 8-18 0 l Ultra 20:29: Refill(s) [place] Claritin Yes 10 mg = 1 Jairo frida 8-18 tab, PO, l 20:29: Daily, PRN [place] 00 Itching / rash / allergy symptoms, # 20 tab, 0 Refill(s) Stool Yes PO, Memoria Softener 8-18 Bedtime, 0 l with 20:29: Refill(s) [place] [facility] aspirin-ome No 1 tab, PO, Memoria prazole 325 8-18 Daily, 0 l mg-40 mg 20:29: Refill(s) [facility] oral 00 delayed release tablet Centrum Yes PO, Daily, Jairo frida Silver 8-18 0 l Ultra 20:29: Refill(s) [place] Claritin Yes 10 mg = 1 Jairo frida 8-18 tab, PO, l 20:29: Daily, PRN [place] 00 Itching / rash / allergy symptoms, # 20 tab, 0 Refill(s) Stool Yes PO, Memoria Softener 8-18 Bedtime, 0 l with 20:29: Refill(s) [place] L[facility] aspirin-ome No 1 tab, PO, Memoria prazole 325 8-18 Daily, 0 l mg-40 mg 20:29: Refill(s) [facility] emilia oral 00 delayed release tablet Centrum Yes PO, Daily, Jairo frida Silver 8-18 0 l Ultra 20:29: Refill(s) [place] Claritin Yes 10 mg = 1 Jairo frida 8-18 tab, PO, l 20:29: Daily, PRN [place] 00 Itching / rash / allergy symptoms, # 20 tab, 0 Refill(s) Stool Yes PO, Memoria Softener 8-18 Bedtime, 0 l with 20:29: Refill(s) [place] Laxative aspirin-ome No 1 tab, PO, Memoria prazole 325 8-18 Daily, 0 l mg-40 mg 20:29: Refill(s) [facility] oral 00 delayed release tablet Centrum Yes PO, Daily, Jairo frida Silver 8-18 0 l Ultra 20:29: Refill(s) [place] Claritin Yes 10 mg = 1 Jairo frida 8-18 tab, PO, l 20:29: Daily, PRN [place] 00 Itching / rash / allergy symptoms, # 20 tab, 0 Refill(s) Stool Yes PO, Memoria Softener 8-18 Bedtime, 0 l with 20:29: Refill(s) [place] Laxative aspirin-ome No 1 tab, PO, Memoria prazole 325 8-18 Daily, 0 l mg-40 mg 20:29: Refill(s) [facility] oral 00 delayed release tablet Centrum Yes PO, Daily, Jairo frida Silver 8-18 0 l Ultra 20:29: Refill(s) [place] Claritin Yes 10 mg = 1 Jairo frida 8-18 tab, PO, l 20:29: Daily, PRN [place] 00 Itching / rash / allergy symptoms, # 20 tab, 0 Refill(s) Stool Yes PO, Memoria Softener 8-18 Bedtime, 0 l with 20:29: Refill(s) [place] Laxative aspirin-ome No 1 tab, PO, Memoria prazole 325 8-18 Daily, 0 l mg-40 mg 20:29: Refill(s) [facility] oral 00 delayed release tablet Centrum Yes PO, Daily, Jairo frida Silver 8-18 0 l Ultra 20:29: Refill(s) [place] Claritin Yes 10 mg = 1 Jairo frida 8-18 tab, PO, l 20:29: Daily, PRN [place] 00 Itching / rash / allergy symptoms, # 20 tab, 0 Refill(s) Stool Yes PO, Memoria Softener 8-18 Bedtime, 0 l with 20:29: Refill(s) [place] Laxative aspirin-ome No 1 tab, PO, Memoria prazole 325 8-18 Daily, 0 l mg-40 mg 20:29: Refill(s) [facility] oral 00 delayed release tablet Centrum Yes PO, Daily, Jairo frida Silver 8-18 0 l Ultra 20:29: Refill(s) [place] Claritin Yes 10 mg = 1 Jairo frida 8-18 tab, PO, l 20:29: Daily, PRN [place] 00 Itching / rash / allergy symptoms, # 20 tab, 0 Refill(s) Stool Yes PO, Memoria Softener 8-18 Bedtime, 0 l with 20:29: Refill(s) [place] Laxative 00 aspirin-ome No 1 tab, PO, Memoria prazole 325 8-18 Daily, 0 l mg-40 mg 20:29: Refill(s) [facility] oral 00 delayed release tablet Centrum Yes PO, Daily, Jairo frida Silver 8-18 0 l Ultra 20:29: Refill(s) [place] [facility] Claritin Yes 10 mg = 1 Jairo frida 8-18 tab, PO, l 20:29: Daily, PRN [place] 00 Itching / rash / allergy symptoms, # 20 tab, 0 Refill(s) Stool Yes PO, Memoria Softener 8-18 Bedtime, 0 l with 20:29: Refill(s) [facility] cephalexin Yes 500 mg = 1 [...] tab, PO, l tablet 20:28: Daily, # [place] 00 90 tab, 0 Refill(s) Insulin Yes 1 unit, Memoria Lispro 100 8-18 SUB-Q, 0 l UNT/ML 20:28: Refill(s) [facility] n Injectable 00 Solution [Humalog] cephalexin Yes 500 mg = 1 M emoria 500 mg oral 8-18 cap, PO, l capsule 20:28: QID, # 20 Macey nn 00 cap, 0 Refill(s) furosemide 0 Yes 80 mg = 1 Me moria 80 mg oral 8-18 tab, PO, l tablet 20:28: Daily, # [facility] 00 90 tab, 0 Refill(s) Insulin 0 Yes 1 unit, Memoria Lispro 100 8-18 [...] tab, PO, l tablet 20:28: Daily, # [place] 00 90 tab, 0 Refill(s) Insulin 0 Yes 1 unit, [facility] Lispro 100 8-18 [...] [facility] 00 90 tab, 0 Refill(s) Insulin 0 Yes 1 unit, [facility]oria Lispro 100 8-18 SUB-Q, 0 l UNT/ML 20:28: Refill(s) [place] [facility] Injectable 00 Solution [Humalog] cephalexin Yes 500 mg = 1 M emoria 500 mg oral 8-18 cap, PO, l capsule 20:28: QID, # 20 [place]acey nn 00 cap, 0 Refill(s) furosemide 0 Yes 80 mg = 1 Me moria 80 mg oral 8-18 tab, PO, l tablet 20:28: Daily, # [facility] 00 90 tab, 0 Refill(s) Insulin 0 Yes 1 unit, Memoria Lispro 100 8-18 SUB-Q, 0 l UNT/ML 20:28: Refill(s) [place] Injectable 00 Solution [Humalog] cephalexin 0 Yes 500 mg = 1 M emoria 500 mg oral 8-18 cap, PO, l capsule 20:28: QID, # 20 [place]acey nn 00 cap, 0 Refill(s) furosemide 0 Yes 80 mg = 1 Me moria 80 mg oral 8-18 tab, PO, l tablet 20:28: Daily, # [place] 00 90 tab, 0 Refill(s) Insulin 0 Yes 1 unit, Memoria Lispro 100 8-18 [...] [place] 00 90 tab, 0 Refill(s) Insulin 0 Yes 1 unit, Memoria Lispro 100 8-18 SUB-Q, 0 l UNT/ML 20:28: Refill(s) [place] Injectable 00 Solution [Humalog] cephalexin 0 Yes 500 mg = 1 M emoria 500 mg oral 8-18 cap, PO, l capsule 20:28: QID, # 20 [place] nn 00 cap, 0 Refill(s) cephalexin 0 Yes 500 mg = 1 M emoria 500 mg oral 8-18 cap, PO, l capsule 20:28: QID, # 20 [place] nn 00 cap, 0 Refill(s) furosemide 0 Yes 80 mg = 1 Me moria 80 mg oral 8-18 tab, PO, l tablet 20:28: Daily, # [facility] 00 90 tab, 0 Refill(s) Insulin 2020-0 Yes 1 unit, Memoria Lispro 100 8-18 SUB-Q, 0 l UNT/ML 20:28: Refill(s) [place] [facility] Injectable 00 Solution [Humalog] furosemide 0 Yes 80 mg = 1 Me moria [...] (0.15 mg) 20:27: = 1 tab, [facility] emilia oral tablet 00 PO, Daily, # 30 tab, 0 Refill(s) lisinopril Yes 5 mg = 1 Mem oria 5 mg oral 8-18 tab, PO, l tablet 20:27: Daily, # [place] 00 90 tab, 1 Refill(s) Metoprolol Yes 25 mg = 1 Me moria Succinate 8-18 tab, PO, l ER 25 mg 20:27: Daily, # [place] nn oral 00 90 tab, 0 tablet, Refill(s) extended release tramadol Yes 50 mg = 1 Jairo frida hydrochlori 8-18 tab, PO, l de 50 MG 20:27: BID, # 30 [facility] em[facility] Oral Tablet 00 tab, 0 Refill(s) levothyroxi Yes 150 Memori a ne 150 mcg 8-18 microgram l (0.15 mg) 20:27: = 1 tab, [facility] emilia oral tablet 00 PO, Daily, # 30 [...] 50 MG 20:27: BID, # 30 [facility] emilia Oral Tablet 00 tab, 0 Refill(s) levothyroxi Yes 150 Memori a ne 150 mcg 8-18 microgram l (0.15 mg) 20:27: = 1 tab, [facility] emilia oral tablet 00 PO, Daily, # 30 tab, 0 Refill(s) lisinopril Yes 5 mg = 1 Mem oria 5 mg oral 8-18 tab, PO, l tablet 20:27: Daily, # [place] 00 90 tab, 1 Refill(s) Metoprolol Yes 25 mg = 1 Me moria Succinate 8-18 tab, PO, l ER 25 mg 20:27: Daily, # [place] nn oral 00 90 tab, 0 tablet, Refill(s) extended release tramadol Yes 50 mg = 1 Jairo frida hydrochlori 8-18 tab, PO, l de 50 MG 20:27: BID, # 30 [facility] emilia Oral Tablet 00 tab, 0 Refill(s) levothyroxi Yes 150 Memori a ne 150 mcg 8-18 microgram l (0.15 mg) 20:27: = 1 tab, [facility] emilia oral tablet 00 PO, Daily, # 30 tab, 0 Refill(s) lisinopril 0 Yes 5 mg = 1 Mem oria 5 mg oral 8-18 tab, PO, l tablet 20:27: Daily, # [place] 00 90 tab, 1 Refill(s) Metoprolol 0 Yes 25 mg = 1 Me moria Succinate 8-18 tab, PO, l ER 25 mg 20:27: Daily, # [place] nn oral 00 90 tab, 0 tablet, Refill(s) extended release tramadol Yes 50 mg = 1 Jairo frida hydrochlori 8-18 tab, PO, l de 50 MG 20:27: BID, # 30 [facility] emilia Oral Tablet 00 tab, 0 Refill(s) levothyroxi 0 Yes 150 Memori a ne 150 mcg 8-18 microgram l (0.15 mg) 20:27: = 1 tab, [facility] emilia oral tablet 00 PO, Daily, # 30 tab, 0 Refill(s) lisinopril 2020-0 Yes 5 mg = 1 Mem oria 5 mg oral 8-18 tab, PO, l tablet 20:27: Daily, # [place] 00 90 tab, 1 Refill(s) Metoprolol 0 Yes 25 mg = 1 Me moria Succinate 8-18 tab, PO, l ER 25 mg 20:27: Daily, # [place] nn oral 00 90 tab, 0 tablet, Refill(s) extended release tramadol 0 Yes 50 mg = 1 Jairo frida hydrochlori 8-18 tab, PO, l de 50 MG 20:27: BID, # 30 [facility] emilia Oral Tablet 00 tab, 0 Refill(s) levothyroxi Yes 150 Memori a ne 150 mcg 8-18 microgram l (0.15 mg) 20:27: = 1 tab, [facility] emilia oral tablet 00 PO, Daily, # 30 [...] 50 MG 20:27: BID, # 30 [facility] emilia Oral Tablet 00 tab, 0 Refill(s) levothyroxi 0 Yes 150 Memori a ne 150 mcg 8-18 microgram l (0.15 mg) 20:27: = 1 tab, [facility] emilia oral tablet 00 PO, Daily, # 30 [...] 50 MG 20:27: BID, # 30 [facility] emilia Oral Tablet 00 tab, 0 Refill(s) levothyroxi Yes 150 Memori a ne 150 mcg 8-18 microgram l (0.15 mg) 20:27: = 1 tab, [facility] emilia oral tablet 00 PO, Daily, # 30 tab, 0 Refill(s) lisinopril Yes 5 mg = 1 Mem oria 5 mg oral 8-18 tab, PO, l tablet 20:27: Daily, # [place] 00 90 tab, 1 Refill(s) Metoprolol Yes 25 mg = 1 Me moria Succinate 8-18 tab, PO, l ER 25 mg 20:27: Daily, # [place] nn oral 00 90 tab, 0 tablet, Refill(s) extended release tramadol Yes 50 mg = 1 Jairo frida hydrochlori 8-18 tab, PO, l de 50 MG 20:27: BID, # 30 [facility] emilia Oral Tablet 00 tab, 0 Refill(s) levothyroxi Yes 150 Memori a ne 150 mcg 8-18 microgram l (0.15 mg) 20:27: = 1 tab, [facility] emilia oral tablet 00 PO, Daily, # 30 tab, 0 Refill(s) lisinopril 0 Yes 5 mg = 1 Mem oria 5 mg oral 8-18 tab, PO, l tablet 20:27: Daily, # [place] 00 90 tab, 1 Refill(s) Metoprolol Yes 25 mg = 1 Me moria Succinate 8-18 tab, PO, l ER 25 mg 20:27: Daily, # [place] nn oral 00 90 tab, 0 tablet, Refill(s) extended release tramadol Yes 50 mg = 1 Jairo frida hydrochlori 8-18 tab, PO, l de 50 MG 20:27: BID, # 30 [facility] emilia Oral Tablet 00 tab, 0 Refill(s) levothyroxi Yes 150 Memori a ne 150 mcg 8-18 microgram l (0.15 mg) 20:27: = 1 tab, [facility] emilia oral tablet 00 PO, Daily, # 30 tab, 0 Refill(s) lisinopril Yes 5 mg = 1 Mem oria 5 mg oral 8-18 tab, PO, l tablet 20:27: Daily, # [place] 00 90 tab, 1 Refill(s) Metoprolol Yes 25 mg = 1 Me moria Succinate 8-18 tab, PO, l ER 25 mg 20:27: Daily, # [place] nn oral 00 90 tab, 0 tablet, Refill(s) extended release tramadol Yes 50 mg = 1 Jairo frida hydrochlori 8-18 tab, PO, l de 50 MG 20:27: BID, # 30 [facility] em[facility] Oral Tablet 00 tab, 0 Refill(s) levothyroxi Yes 150 Memori a ne 150 mcg 8-18 microgram l (0.15 mg) 20:27: = 1 tab, [facility] emilia oral tablet 00 PO, Daily, # 30 tab, 0 Refill(s) lisinopril Yes 5 mg = 1 Mem oria 5 mg oral 8-18 tab, PO, l tablet 20:27: Daily, # [place] 00 90 tab, 1 Refill(s) Metoprolol Yes 25 mg = 1 Me moria Succinate 8-18 tab, PO, l ER 25 mg 20:27: Daily, # [place] nn oral 00 90 tab, 0 tablet, Refill(s) extended release tramadol Yes 50 mg = 1 Jairo frida hydrochlori 8-18 tab, PO, l de 50 MG 20:27: BID, # 30 [facility] emilia Oral Tablet 00 tab, 0 Refill(s) 3 ML Yes 10 unit, Memoria Insulin 8-18 SUB-Q, l Glargine 20:26: Daily, # 3 Her [place] 100 UNT/ML 00 mL, 0 Prefilled Refill(s) Syringe [Lantus] 3 ML Yes 10 unit, Memoria Insulin 8-18 SUB-Q, l Glargine 20:26: Daily, # 3 [facility] [place] 100 UNT/ML 00 mL, 0 Prefilled Refill(s) Syringe [Lantus] 3 ML 0 Yes 10 unit, Memoria Insulin 8-18 SUB-Q, [...] Units ity of (HUMALOG 14:34: under the [facility] DESTIN 02 skin 3 Medical KWIKPEN (three) Branch U-100) 100 times unit/mL daily. inph Insulin Yes 45U inject 45 Unive rs Glargine 4-08 Units ity of (LANTUS 14:34: under the [place] SOLOSTAR 02 skin 2 Medical U-100 (two) Branch INSULIN) times 100 unit/mL daily. (3 mL) injection amLODIPine Yes 10mg Take 10 mg U nivers 10 mg 4-08 by mouth ity of tablet 14:34: daily. [place] [address] Medical Branch buPROPion Yes 150mg Take 150 Uni vers SR 150 mg 4-08 mg by ity of SR tablet 14:34: mouth daily. Medical Branch furosemide Yes 160mg Take 160 Un hellen 80 mg 4-08 mg by ity of tablet 14:34: mouth daily. Medical Branch lisinopriL Yes 5mg Take 5 mg Un hellen 5 mg tablet 4-08 by mouth ity of 14:34: daily. [place] [address] Medical Branch metoprolol Yes 50mg Take 50 mg U nivers succinate 4-08 by mouth 2 ity of XL 50 mg 24 14:34: (two) [place] hr tablet 02 times Medical daily. Branch pantoprazol Yes 40mg Take 40 mg Univers e 40 mg EC 4-08 by mouth ity o f tablet 14:34: daily. [place] [address] Medical Branch Levothyroxi Yes 150ug Take 150 U nivers ne 100 mcg 4-08 mcg by ity of capsule 14:34: mouth daily. Medical Branch aspirin 325 Yes 325mg Take 325 U nivers mg tablet 4-08 mg by ity of 14:34: mouth daily. Medical Branch Cholecalcif Yes Take by Uni vers daryl, 4-08 mouth. ity of Vitamin D3, 14:34: [place] (VITAMIN [facility] D3) 25 mcg [place] (1,000 unit) capsule folic Yes Take by Univers acid/multiv 4-08 mouth ity of it-min/lute 14:34: [place]. [place] (CENTRUM 02 Medical SILVER Branch ORAL) mydriatic 2020- No .5mL 0.5 mL, Univ ers #5 10-14 04-08 Right Eye, ity of ophthalmic 12:45: 12:48 ONCE, 1 [place] as solution 00 :00 dose, Krystle Medica l 0.5 mL 10/14/20 at [place] syringe 0745, Routine, DSU Pre-op lactated 2020- No 1000mL at 42 Unive rs ringers IV 10-14 04-08 mL/hr, ity of infusion 12:45: 13:20 1,000 mL, [place] as 1,000 mL 00 :00 IV Medical Infusion, [place] ONCE, 1 dose, Krystle 10/14/20 at 0745, [...] by mouth ity of tablet 09:34: daily. [place] Medical Branch buPROPion Yes 150mg Take 150 Uni vers SR 150 mg 4-08 mg by ity of SR tablet 09:34: mouth [place] daily. Medical Branch furosemide Yes 160mg Take 160 Un hellen 80 mg 4-08 mg by ity of tablet 09:34: mouth [place] 02 daily. [facility] lisinopriL Yes 5mg Take 5 mg Un hellen 5 mg tablet 4-08 by mouth ity of 09:34: daily. [place] [address] [facility] metoprolol Yes 50mg Take 50 mg U nivers succinate 4-08 by mouth 2 ity of XL 50 mg 24 09:34: (two) [place] hr tablet 02 times Medical daily. Branch pantoprazol Yes 40mg Take 40 mg Univers e 40 mg EC 4-08 by mouth ity o f tablet 09:34: daily. [place] [facility] Levothyroxi Yes 150ug Take 150 U nivers ne 100 mcg 4-08 mcg by ity of capsule 09:34: mouth [place] daily. [facility] aspirin 325 Yes 325mg Take 325 U nivers mg tablet 4-08 mg by ity of 09:34: mouth [place] daily. [facility] Cholecalcif Yes Take by Uni vers daryl, 4-08 mouth. ity of Vitamin D3, 09:34: [place] (VITAMIN [address] [place] [address] D3) 25 mcg Branch (1,000 unit) capsule folic Yes Take by [facility] acid/multiv 4-08 mouth ity of it-min/[place] 09:34: [place]. [place] (CENTRUM 02 Medical SILVER Branch ORAL) insulin 2019-07 Yes 30U [id number] Inject 30 [facility] lispro 1-[id number] (HumaLOG 00:00: 3D [facility] U-100 00 skin 3 l Insulin) (three) 100 unit/mL times a injection day before meals. insulin 2019- Yes 30U [id number] Inject 30 [facility] lispro 1-06 [id number] Units [facility] (HumaLOG 00:00: 3D [facility] the [facility] U-100 00 skin 3 l Insulin) (three) 100 unit/mL times a injection day before meals. insulin 2020-1 Yes 30U [id number] Inject 30 Methodi lispro 1-[id number] (HumaLOG 00:00: 3D [facility] the [facility] U-100 00 skin 3 l Insulin) (three) 100 unit/mL times a injection day before meals. insulin 2020-1 Yes 30U [id number] Inject 30 [facility] lispro 1-[id number] (HumaLOG 00:00: 3D under the [facility] U-100 00 skin 3 l Insulin) (three) 100 unit/mL times a injection day before meals. insulin 2020-1 Yes 30U [id number] Inject 30 [facility] lispro 1-[id number] (HumaLOG 00:00: 3D under the [facility] U-100 00 skin 3 l Insulin) (three) 100 unit/mL times a injection day before meals. insulin 2020-1 Yes 30U [id number] Inject 30 [facility]i lispro 1-[id number] (HumaLOG 00:00: 3D under the [facility] U-100 00 skin 3 l Insulin) (three) 100 unit/mL times a injection day before meals. insulin 2020-1 Yes 30U [id number] Inject 30 Methodi lispro 1-[id number] (HumaLOG 00:00: 3D under the [facility] U-100 00 skin 3 l Insulin) (three) 100 unit/mL times a injection day before meals. insulin 2020-1 Yes 30U [id number] Inject 30 Methodi lispro 1-[id number] (HumaLOG 00:00: 3D under the [facility] U-100 00 skin 3 l Insulin) (three) 100 unit/mL times a injection day before meals. insulin 2020-1 Yes 30U [id number] Inject 30 Methodi lispro 1-[id number] (HumaLOG 00:00: 3D [facility] the [facility] U-100 00 skin 3 l Insulin) (three) 100 unit/mL times a injection day before meals. insulin 2020-0 Yes 30U inject 30 Unive rs lispro 9-24 Units ity of (HUMALOG 16:37: under the [facility] s DESTIN 58 skin 3 Medical KWIKPEN (three) Branch U-100) 100 times unit/mL daily. inph Insulin 2020-0 Yes 45U inject 45 Unive rs Glargine 9-24 Units ity of (LANTUS 16:37: under the [place] SOLOSTAR 58 skin 2 Medical U-100 (two) Branch INSULIN) times 100 unit/mL daily. (3 mL) injection amLODIPine 2020-0 Yes 10mg Take 10 mg U nivers 10 mg 9-24 by mouth ity of tablet 16:37: daily. [place] [address] Medical Branch buPROPion 2020-0 Yes 150mg Take [...] by mouth ity of tablet 16:37: daily. [place] [address] Medical Branch metoprolol 2020-0 Yes 50mg Take 50 mg U nivers succinate 9-24 by mouth 2 ity of XL 50 mg 24 16:37: (two) [place] hr tablet 58 times Medical daily. Branch pantoprazol 2020-0 Yes 40mg Take 40 mg Univers e 40 mg EC 9-24 by mouth ity o f tablet 16:37: daily. [place] [address] Medical Branch Levothyroxi 2020-0 Yes 150ug Take [...] 9-24 mouth. ity of Vitamin D3, 16:37: [place] (VITAMIN [address] [place] [address] D3) 25 mcg Branch (1,000 unit) capsule folic 2020-0 Yes Take by Univers acid/multiv 9-24 mouth ity of it-min/lute 16:37: daily. Jonelle aleman in (CENTRUM 58 Medical SILVER Branch ORAL) insulin 2020-0 Yes 30U inject 30 Unive rs lispro 9-24 Units ity of (HUMALOG 16:37: under the [facility] s DESTIN 58 skin 3 Medical KWIKPEN (three) Branch U-100) 100 times unit/mL daily. inph Insulin 2020-0 Yes 45U inject 45 Unive rs Glargine 9-24 Units ity of (LANTUS 16:37: under the [place] SOLOSTAR 58 skin 2 Medical U-100 (two) Branch INSULIN) times 100 unit/mL daily. (3 mL) injection amLODIPine 2020-0 Yes 10mg Take 10 mg U nivers 10 mg 9-24 by mouth ity of tablet 16:37: daily. [place] [address] Medical Branch buPROPion 2020-0 Yes 150mg Take [...] by mouth ity of tablet 16:37: daily. [place] [address] Medical Branch metoprolol 2020-0 Yes 50mg Take 50 mg U nivers succinate 9-24 by mouth 2 ity of XL 50 mg 24 16:37: (two) [place] hr tablet 58 times Medical daily. Branch pantoprazol 2020-0 Yes 40mg Take 40 mg Univers e 40 mg EC 9-24 by mouth ity o f tablet 16:37: daily. [place] [address] Medical Branch Levothyroxi 2020-0 Yes 150ug Take [...] 9-24 mouth. ity of Vitamin D3, 16:37: [place] (VITAMIN [address] [place] [address] D3) 25 mcg Branch (1,000 unit) capsule folic 2020-0 Yes Take by Univers acid/multiv 9-24 mouth ity of it-min/lute 16:37: daily. Jonelle aleman in (CENTRUM 58 Medical SILVER Branch ORAL) insulin 2020-0 Yes 30U inject 30 Unive rs lispro 9-24 Units ity of (HUMALOG 16:37: under the [facility] s DESTIN 58 skin 3 Medical KWIKPEN (three) Branch U-100) 100 times unit/mL daily. inph Insulin 2020-0 Yes 45U inject 45 Unive rs Glargine 9-24 Units ity of (LANTUS 16:37: under the [place] SOLOSTAR 58 skin 2 Medical U-100 (two) Branch INSULIN) times 100 unit/mL daily. (3 mL) injection amLODIPine 2020-0 Yes 10mg Take 10 mg U nivers 10 mg 9-24 by mouth ity of tablet 16:37: daily. [place] [address] Medical Branch buPROPion 2020-0 Yes 150mg Take 150 Uni vers SR 150 mg 9-24 mg by ity of SR tablet 16:37: mouth [place] 58 daily. Medical Branch furosemide 2020-0 Yes 160mg Take 160 Un heleln 80 mg 9-24 mg by ity of tablet 16:37: mouth [place] 58 daily. Medical Branch lisinopriL 2020-0 Yes 5mg Take 5 mg Un hellen 10 mg 9-24 by mouth ity of tablet 16:37: daily. [place] [address] Medical Branch metoprolol 2020-0 Yes 50mg Take 50 mg U nivers succinate 9-24 by mouth 2 ity of XL 50 mg 24 16:37: (two) [place] hr tablet 58 times Medical daily. Branch pantoprazol 2020-0 Yes 40mg Take 40 mg Univers e 40 mg EC 9-24 by mouth ity o f tablet 16:37: daily. [place] [address] Medical Branch Levothyroxi 2020-0 Yes 150ug Take [...] 9-24 mouth. ity of Vitamin D3, 16:37: [place] (VITAMIN [address] [place] [address] D3) 25 mcg Branch (1,000 unit) capsule folic 2020-0 Yes Take by Univers acid/multiv 9-24 mouth ity of it-min/lute 16:37: daily. Jonelle s in (CENTRUM 58 Medical SILVER Branch ORAL) insulin 2020-0 Yes 30U inject 30 Unive rs lispro 9-24 Units ity of (HUMALOG 16:37: under the [facility] s DESTIN 58 skin 3 Medical KWIKPEN (three) Branch U-100) 100 times unit/mL daily. inph Insulin 2020-0 Yes 45U inject 45 Unive rs Glargine 9-24 Units ity of (LANTUS 16:37: under the [place] SOLOSTAR 58 skin 2 Medical U-100 (two) Branch INSULIN) times 100 unit/mL daily. (3 mL) injection amLODIPine 2020-0 Yes 10mg Take 10 mg U nivers 10 mg 9-24 by mouth ity of tablet 16:37: daily. [place] [address] Medical Branch buPROPion 2020-0 Yes 150mg Take [...] by mouth ity of tablet 16:37: daily. [place] [address] Medical Branch metoprolol 2020-0 Yes 50mg Take 50 mg U nivers succinate 9-24 by mouth 2 ity of XL 50 mg 24 16:37: (two) [place] hr tablet 58 times Medical daily. Branch pantoprazol 2020-0 Yes 40mg Take 40 mg Univers e 40 mg EC 9-24 by mouth ity o f tablet 16:37: daily. [place] [address] Medical Branch Levothyroxi 2020-0 Yes 150ug Take [...] 9-24 mouth. ity of Vitamin D3, 16:37: [place] (VITAMIN [address] [place] [address] D3) 25 mcg Branch (1,000 unit) capsule folic 2020-0 Yes Take by Univers acid/multiv 9-24 mouth ity of it-min/lute 16:37: [place]. [place] (CENTRUM 58 Medical SILVER Branch ORAL) insulin 2020-0 Yes 30U inject 30 Unive rs lispro 9-24 Units ity of (HUMALOG 13:50: under the [facility] s DESTIN 18 skin 3 Medical KWIKPEN (three) Branch U-100) 100 times unit/mL daily. inph Insulin 2020-0 Yes 45U inject 45 Unive rs Glargine 9-24 Units ity of (LANTUS 13:50: under the [place] SOLOSTAR 18 skin 2 Medical U-100 (two) Branch INSULIN) times 100 unit/mL daily. (3 mL) injection amLODIPine 2020-0 Yes 10mg Take 10 mg U nivers 10 mg 9-24 by mouth ity of tablet 13:50: daily. [place] [address] Medical Branch buPROPion 2020-0 Yes 150mg Take [...] by mouth ity of tablet 13:50: daily. [place] [address] Medical Branch metoprolol 2020-0 Yes 50mg Take 50 mg U nivers succinate 9-24 by mouth 2 ity of XL 50 mg 24 13:50: (two) [place] hr tablet 18 times Medical daily. Branch pantoprazol 2020-0 Yes 40mg Take 40 mg Univers e 40 mg EC 9-24 by mouth ity o f tablet 13:50: daily. [place] [address] Medical Branch Levothyroxi 2020-0 Yes 150ug Take [...] 9-24 mouth. ity of Vitamin D3, 13:50: [place] (VITAMIN [address] [place] [address] D3) 25 mcg M[place]le[place] (1,000 unit) capsule folic 2020-0 Yes Take by Univers acid/multiv 9-24 mouth ity of it-min/lute 13:50: [place]. [place] (CENTRUM 18 Medical SILVER Branch ORAL) insulin 2020-0 Yes 30U inject 30 Unive rs lispro 9-24 Units ity of (HUMALOG 13:50: under the [facility] s DESTIN 18 skin 3 Medical KWIKPEN (three) Branch U-100) 100 times unit/mL daily. inph Insulin 2020-0 Yes 45U inject 45 Unive rs Glargine 9-24 Units ity of (LANTUS 13:50: under the [place] SOLOSTAR 18 skin 2 Medical U-100 (two) Branch INSULIN) times 100 unit/mL daily. (3 mL) injection amLODIPine 2020-0 Yes 10mg Take 10 mg U nivers 10 mg 9-24 by mouth ity of tablet 13:50: daily. [place] [address] Medical Branch buPROPion 2020-0 Yes 150mg Take [...] by mouth ity of tablet 13:50: daily. [place] [address] Medical Branch metoprolol 2020-0 Yes 50mg Take 50 mg U nivers succinate 9-24 by mouth 2 ity of XL 50 mg 24 13:50: (two) [place] hr tablet 18 times Medical daily. Branch pantoprazol 2020-0 Yes 40mg Take 40 mg Univers e 40 mg EC 9-24 by mouth ity o f tablet 13:50: daily. [place] [address] Medical Branch Levothyroxi 2020-0 Yes 150ug Take [...] 9-24 mouth. ity of Vitamin D3, 13:50: [place] (VITAMIN [address] [place] [address] D3) 25 mcg Mccleary (1,000 unit) capsule folic 2020-0 Yes Take [...] 13:02: 13:33 INTRA [place] 00 :17 PROCEDURE, [facility] Starting [facility] 04/01/20 at 0802, Until [place] 04/01/20 at 0833, Routine, Intra-op lactated 2020-0 2020- No IV Univers ringers IV 04-01 Infusion, ity of infusion 13:01: 13:33 [place] :17 PRN, [facility] 04/01/20 at 0801, Until [place] 04/01/20 at 0833, Routine, Intra-op lactated 2020-0 2020- No IV Univers ringers IV 04-01 Infusion, ity of infusion 13:01: 13:[place] :[place] PRN, [facility] 04/01/20 at 0801, Until [facility] 04/01/20 at 0833, Routine, Intra-op tetracaine 2020-0 Yes PRN, Univers (PONTOCAINE 04-01 Starting ity of ) 0.5 % 12:53: [place] ophthalmic 04/01/20 at [facility] drops [address] [place] [address] Until Discontinu ed, Routine, Intra-op water for 2020-0 Yes PRN, Univers irrigation 04-01 Starting ity o f irrigation 12:53: [place] solution 04/01/20 at Medic [address] Until Discontinu ed, Routine, Intra-op NaCl 0.9% 2020-0 Yes PRN, Univers (NS) 04-01 Starting ity of injection 12:52: [place] 04/01/[address] Until Discontinu ed, Routine, Intra-op neomycin-po 2020-0 Yes PRN, Univer s lymyxin-dex 04-01 Starting ity of amethasone 12:52: [place] (MAXITROL) 04/01/20 at [facility] [address] [place] [address] mg/g-10,000 Until unit/g-0.1 Discontinu % ed, ophthalmic Routine, ointment Intra-op gentamicin 2020-0 Yes PRN, Univers injection 04-01 Starting ity of 12:52: [place] 04/01/[address] Until Discontinu ed, VIOLETTA, Intra-op eye block 2020-0 Yes PRN, Univers syringe 11 04-01 Starting ity o f mL 12:51: [place] 04/01/[address] Until Discontinu ed, Intra-op EPINEPHrine 2020-0 Yes PRN, Univer s (PF) 04-01 Starting ity of 1:1,000 (1 12:51: [facility] mg/mL) 04/01/20 at [facility] (ADRENALIN 0751, Mccleary (PF)) Until injection Discontinu ed, Routine, Intra-op DUOVISC 2020-0 Yes PRN, Univers (DUOVISC 04-01 Starting ity of VISCO 12:51: [place] ELASTIC) 3 04/01/20 at [facility] ical %-4 %(0.5 075, Mccleary mL) 1 % Until (0.55 mL) Discontinu intraocular ed, injection Routine, Intra-op dexamethaso 2020-0 Yes PRN, Univer s ne 04-01 Starting ity of (DECADRON 12:50: [place] PHOSPHATE) 04/01/20 at [facility] ical injection [address] Until Discontinu ed, Routine, Intra-op ceFAZolin 2020-0 Yes PRN, Univers (ANCEF) 04-01 Starting ity of injection 12:50: [place] 04/01/[address] Until Discontinu ed, VIOLETTA, Intra-op balanced 2020-0 Yes PRN, Univers salt soln 04-01 Starting ity of no.2 irrig. 12:49: [place] (BSS) 04/01/20 at [facility] ophthalmic 0749, Mccleary solution Until Discontinu ed, Routine, Intra-op lactated 2020-0 2020- No 1000mL at 20 [facility] rs ringers IV 04-01 mL/hr, ity of infusion 12:00: 12:17 1,000 mL, [place] 1,000 mL 00 :00 IV Medical Infusion, Mccleary ONCE, 1 dose, [place] 04/01/20 at 0700, [...] 00:00: mouth [facility] every l morning. buPROPion buPROPion No 1{table QD buPROPion HCl [...] daryl 50 MCG le} ferol 50 (1999) (1999 [place]) MCG (1999) Sucralfate Sucralfate No [...] ferol 50 (1999 [place]) (1999) MCG (1999) buPROPion buPROPion No 1{table [...] UNIT/ML 100 UNIT/ML 100 UNIT/ML Immunizations Ordered Filled Immunization Date Status Comments Sour e Immunization Name Name SARS-COV-2 COVID-19 2021-07-27 Completed Unive rsity of PFIZER VACCINE 00:00:00 [facility] SARS-COV-2 COVID-19 2021-07-27 Completed Unive rsity of PFIZER VACCINE 00:00:00 [facility] PFIZER COVID-19 2021-07-27 Completed [facility] VACCINATION 00:00:00 [facility] PFIZER COVID-19 2021-07-27 Completed [place] MRNA VACCINATION 00:00:00 [facility] PFIZER COVID-19 2021-07-27 Completed [facility] MRNA VACCINATION 00:00:00 [facility] PFIZER COVID-19 2021-07-27 Completed [facility] MRNA VACCINATION 00:00:00 [facility] PFIZER COVID-19 2021-07-27 Completed [facility] MRNA VACCINATION 00:00:00 [facility] PFIZER COVID-19 2021-07-27 Completed [facility] MRNA VACCINATION 00:00:00 [facility] PFIZER COVID-19 2021-07-27 Completed [facility] MRNA VACCINATION 00:00:00 [facility] PFIZER COVID-19 2021-07-27 Completed [facility] MRNA VACCINATION 00:00:00 [facility] PFIZER COVID-19 2021-07-27 Completed [facility] M[facility] VACCINATION 00:00:00 [facility] Influenza Virus 2021-04-20 Completed Universit y of Vaccine 00:00:00 [facility] Influenza Virus 2021-04-20 Completed Universit y of Vaccine 00:00:00 [facility] SARS-COV-2 COVID-19 2021-02-25 Completed Unive rsity of PFIZER VACCINE 00:00:00 [facility] SARS-COV-2 COVID-19 2021-02-25 Completed Unive rsity of PFIZER VACCINE 00:00:00 [facility] PFIZER COVID-19 2021-02-25 Completed [facility] M[facility] VACCINATION 00:00:00 [facility] PFIZER COVID-19 2021-02-25 Completed [facility] MRNA VACCINATION 00:00:00 [facility] PFIZER COVID-19 2021-02-25 Completed [facility] MRNA VACCINATION 00:00:00 [facility] PFIZER COVID-19 2021-02-25 Completed [facility] MRNA VACCINATION 00:00:00 [facility] PFIZER COVID-19 2021-02-25 Completed [facility] MRNA VACCINATION 00:00:00 [facility] PFIZER COVID-19 2021-02-25 Completed [facility] MRNA VACCINATION 00:00:00 [facility] PFIZER COVID-19 2021-02-25 Completed [facility] MRNA VACCINATION 00:00:00 [facility] PFIZER COVID-19 2021-02-25 Completed [facility] MRNA VACCINATION 00:00:00 [facility] PFIZER COVID-19 2021-02-25 Completed [facility] M[facility] VACCINATION 00:00:00 [facility] SARS-COV-2 COVID-19 2021-01-06 Completed Unive rsity of PFIZER VACCINE 00:00:00 [facility] SARS-COV-2 COVID-19 2021-01-06 Completed Unive rsity of PFIZER VACCINE 00:00:00 [facility] PFIZER COVID-19 2021-01-06 Completed [facility] VACCINATION 00:00:00 Hospital PFIZER COVID-19 2021-01-06 Completed [facility] MRNA VACCINATION 00:00:00 [facility] PFIZER COVID-19 2021-01-06 Completed [facility] MRNA VACCINATION 00:00:00 [facility] PFIZER COVID-19 2021-01-06 Completed [facility] VACCINATION 00:00:00 Hospital PFIZER COVID-19 2021-01-06 Completed [facility] VACCINATION 00:00:00 Hospital PFIZER COVID-19 2021-01-06 Completed [facility] VACCINATION 00:00:00 Hospital PFIZER COVID-19 2021-01-06 Completed [facility] VACCINATION 00:00:00 [facility] PFIZER COVID-19 2021-01-06 Completed [facility] VACCINATION 00:00:00 Hospital PFIZER COVID-19 2021-01-06 Completed [facility] VACCINATION 00:00:00 [facility] SARS-COV-2 COVID-19 2020-11-03 Completed Unive rsity of VACCINE, BIVALENT 00:00:00 [place] M edical 0.2ML, PFIZER, Branch 6MO-4YRS, IM SARS-COV-2 COVID-19 2020-11-03 Completed Unive rsity of VACCINE, BIVALENT 00:00:00 [place] M edical 0.2ML, PFIZER, Branch 6MO-4YRS, IM SARS-COV-2 COVID-19 2020-10-15 Completed Unive rsity of VACCINE, BIVALENT 00:00:00 [place] M edical 0.2ML, PFIZER, Branch 6MO-4YRS, IM SARS-COV-2 COVID-19 2020-10-15 Completed Unive rsity of VACCINE, BIVALENT 00:00:00 [place] M edical 0.2ML, PFIZER, Branch 6MO-4YRS, IM Pneumococcal 2019-12-05 Completed University o f Polysaccharide, 00:00:00 [place] Med ical PPSV23 (PNEUMOVAX) Branch Pneumococcal 2019-12-05 Completed University o f Polysaccharide, 00:00:00 [facility] ical PPSV23 (PNEUMOVAX) Branch TDAP 2019-08-19 Completed University of 00:00:00 [facility] TDAP 2019-08-19 Completed University of 00:00:00 [facility] Flu Trivalent 2019-04-28 Completed University of 00:00:00 [facility] Influenza Virus 2019-04-28 Completed Universit y of Vaccine Quad IM 3+ 00:00:00 [facility] Flu Trivalent 2019-04-28 Completed University of 00:00:00 [facility] Influenza Virus 2019-04-28 Completed Universit y of Vaccine Quad IM 3+ 00:00:00 [facility] Flu Trivalent 2018-03-18 Completed University of 00:00:00 [facility] Flu Trivalent 2018-03-18 Completed University of 00:00:00 [facility] Flu Split Virus, 2017-04-26 Completed Universi ty of PSA 00:00:00 [facility] Flu Split Virus, 2017-04-26 Completed Universi ty of PSA 00:00:00 [facility] Flu Split Virus, 2016-05-01 Completed Universi ty of PSA 00:00:00 [facility] Flu Split Virus, 2016-05-01 Completed Universi ty of PSA 00:00:00 [facility] Flu Split Virus, 2015-04-29 Completed Universi ty of PSA 00:00:00 [facility] Flu Split Virus, 2015-04-29 Completed Universi ty of PSA 00:00:00 [facility] Pneumococcal 2012-05-03 Completed University o f Polysaccharide, 00:00:00 [place] [facility] ical PPSV23 (PNEUMOVAX) Branch Pneumococcal 2012-05-03 Completed University o f Polysaccharide, 00:00:00 [facility] ical PPSV23 (PNEUMOVAX) Branch TDAP 2009-09-06 Completed University of 00:00:00 [facility] TDAP 2009-09-06 Completed University of 00:00:00 [facility] Pneumococcal 2008-07-09 Completed University o f Polysaccharide, 00:00:00 [place] [facility] ical PPSV23 (PNEUMOVAX) Branch Pneumococcal 2008-07-09 Completed University o f Polysaccharide, 00:00:00 [facility] ical PPSV23 (PNEUMOVAX) Branch Vital Signs Vital Name Observation Time Observation Value Comments Source Systolic blood 2022-11-07 20:23:00 130 mm[Hg] Univer sity of pressure [facility] Diastolic blood 2022-11-07 20:23:00 58 mm[Hg] Unive rsity of pressure [facility] Heart rate 2022-11-07 20:23:00 62 /min Universi ty of [facility] Body temperature 2022-11-07 20:23:00 36.11 Katharina [facility] Respiratory rate 2022-11-07 20:23:00 17 /min [facility] Oxygen saturation in 2022-11-07 20:23:00 100 /min [facility] Arterial blood by [facility] Pulse oximetry Branch Body weight 2022-11-06 17:09:00 74 kg [facility] BMI 2022-11-06 17:09:00 26.33 kg/m2 [facility] Body height 2022-11-04 22:57:00 167.6 cm [facility] height 2022-08-15 10:20:00 66.0 [in_i] Common [facility] weight 2022-08-15 10:20:00 224.4 [lb_av] [facility] temperature 2022-08-15 10:20:00 97.0 [degF] Common [facility] bmi 2022-08-15 10:20:00 36.22 kg/m2 [facility] oximetry 2022-08-15 10:20:00 96 % [facility] respiratory rate 2022-08-15 10:20:00 17 /min Comm on [facility] blood pressure 2022-08-15 10:20:00 131 mm[Hg] Common [facility] - systolic [facility] blood pressure 2022-08-15 10:20:00 72 mm[Hg] Common [facility] - diastolic [facility] height 2022-02-27 11:20:00 66.0 [in_i] [facility] weight 2022-02-27 11:20:00 236.6 [lb_av] [facility] temperature 2022-02-27 11:20:00 97.2 [degF] Common [facility] bmi 2022-02-27 11:20:00 38.18 kg/m2 [facility] oximetry 2022-02-27 11:20:00 94 % [facility] respiratory rate 2022-02-27 11:20:00 16 /min Comm on [facility] blood pressure 2022-02-27 11:20:00 138 mm[Hg] Common [facility] - systolic [facility] blood pressure 2022-02-27 11:20:00 76 mm[Hg] Common [facility] - diastolic [facility] height 2022-02-27 11:00:00 66.0 [in_i] [facility] weight 2022-02-27 11:00:00 236.6 [lb_av] [facility] temperature 2022-02-27 11:00:00 97.2 [degF] Common [facility] bmi 2022-02-27 11:00:00 38.18 kg/m2 [facility] oximetry 2022-02-27 11:00:00 93 % [facility] respiratory rate 2022-02-27 11:00:00 16 /min Comm on [facility] blood pressure 2022-02-27 11:00:00 138 mm[Hg] Common [facility] - systolic [facility] blood pressure 2022-02-27 11:00:00 76 mm[Hg] Common [facility] diastolic [facility] Systolic blood 2020-10-14 14:10:00 120 mm[Hg] Univer sity of [facility] Diastolic blood 2020-10-14 14:10:00 65 mm[Hg] Unive rsity [facility] Heart rate 2020-10-14 14:10:00 81 /min [facility] Body temperature 2020-10-14 14:10:00 36.06 Katharina [facility] Respiratory rate 2020-10-14 14:10:00 13 /min Univ [facility] Oxygen saturation in 2020-10-14 14:10:00 99 /min [facility] Arterial blood by [facility] Pulse oximetry Branch Body height 2020-10-01 18:42:00 167.6 cm [facility] Body weight 2020-10-01 18:42:00 108.4 kg [facility] BMI 2020-10-01 18:42:00 38.59 kg/m2 [facility] Systolic blood 2020-10-14 14:10:00 120 mm[Hg] Univer sity [facility] Diastolic blood 2020-10-14 14:10:00 65 mm[Hg] Unive rsity of pressure [place] [facility] Heart rate 2020-10-14 14:10:00 81 /min Universi ty of [place] [facility] Body temperature 2020-10-14 14:10:00 36.06 Katharina Univ ersity of [place] [facility] Respiratory rate 2020-10-14 14:10:00 13 /min Univ ersity of [place] [facility] Oxygen saturation in 2020-10-14 14:10:00 99 /min University of Arterial blood by [facility] jose Pulse oximetry Branch Body height 2020-10-01 18:42:00 167.6 cm Universi ty of [place] [facility] Body weight 2020-10-01 18:42:00 108.4 kg Universi ty of [place] [facility] BMI 2020-10-01 18:42:00 38.59 kg/m2 Universi ty of [place] [facility] Systolic blood 2020-04-01 13:55:00 113 mm[Hg] Univer sity of pressure [place] [facility] Diastolic blood 2020-04-01 13:55:00 56 mm[Hg] Unive rsity of pressure [place] [facility] Heart rate 2020-04-01 13:55:00 63 /min Universi ty of [place] [facility] Body temperature 2020-04-01 13:55:00 36.11 Katharina Univ [facility] Oxygen saturation in 2020-04-01 13:50:00 100 /min [facility] Arterial blood by [facility] Pulse oximetry Branch Respiratory rate 2020-04-01 13:45:00 18 /min [facility] Body height 2020-03-30 17:15:00 167.6 cm [facility] Body weight 2020-03-30 17:15:00 108.41 kg [facility] BMI 2020-03-30 17:15:00 38.58 kg/m2 [facility] Systolic blood 2020-04-01 13:55:00 113 mm[Hg] [facility] Diastolic blood 2020-04-01 13:55:00 56 mm[Hg] [facility] Heart rate 2020-04-01 13:55:00 63 /min [facility] Body temperature 2020-04-01 13:55:00 36.11 Katharina [facility] Oxygen saturation in 2020-04-01 13:50:00 100 /min [facility] Arterial blood by [facility] Pulse oximetry [place] Respiratory rate 2020-04-01 13:45:00 18 /min [facility] Body height 2020-03-30 17:15:00 167.6 cm [facility] Body weight 2020-03-30 17:15:00 108.41 kg [facility] BMI 2020-03-30 17:15:00 38.58 kg/m2 [facility] Respiratory rate 2020-04-01 13:32:00 18 /min [facility] Res[facility] rate 2020-04-01 13:32:00 18 /min [facility] Heart rate 2022-04-26 17:30:00 76 /min [facility] Oxygen saturation in 2022-04-26 17:30:00 93 /min [facility] Arterial blood by Pulse oximetry Systolic blood 2022-04-26 17:20:00 139 mm[Hg] [facility] pressure Diastolic blood 2022-04-26 17:20:00 67 mm[Hg] [facility] pressure Respiratory rate 2022-04-26 17:20:00 16 /min [facility] Body temperature 2022-04-26 17:00:00 36.44 Katharina [facility] Body height 2022-04-24 17:06:00 167.6 cm [facility] Body weight 2022-04-24 17:06:00 110.224 kg [facility] BMI 2022-04-24 17:06:00 39.22 kg/m2 [facility] Systolic (mm Hg) 2021-02-23 20:05:00 Jairo zhu [place] Diastolic (mm Hg) 2021-02-23 20:05:00 Anita Saucedo Heart Rate 2021-02-23 20:05:00 [facility] Respitory Rate 2021-02-23 20:05:00 Sriram Larkin Height 2021-02-23 20:05:[address] [facility] Weight 2021-02-23 20:05:00 [facility] BMI Calculated 2021-02-23 20:05:00 Sriram Larkin Procedures Procedure Date / Time Performing Source Performed Clinician POCT GLUCOSE (AUTOMATED) 2022-11-07 [facility] 21:57:00 Medical [place] POCT GLUCOSE (AUTOMATED) 2022-11-07 [facility] 16:44:00 Medical [place] POCT GLUCOSE (AUTOMATED) 2022-11-07 [facility] 13:11:00 [facility] BASIC METABOLIC PANEL (NA, K, 2022-11-07 [facility] CL, CO2, GLUCOSE, BUN, 08:55:00 Medical B ranch CREATININE, CA) CBC WITH DIFF 2022-11-07 [facility] 08:55:00 [facility] POCT GLUCOSE (AUTOMATED) 2022-11-06 [facility] 21:39:00 [facility] POCT GLUCOSE (AUTOMATED) 2022-11-06 [facility] 16:26:00 Medical Branch TROPONIN I 2022-11-06 [facility] 14:09:00 Medical Branch HEPATITIS B SURFACE ANTIBODY 2022-11-06 [facility] 14:09[facility] Branch HEPATITIS B SURFACE ANTIGEN 2022-11-06 Enrrique Hodges [facility] 14:09:00 Medical [place] POCT GLUCOSE (AUTOMATED) 2022-11-06 [facility] 12:39:00 [facility] BASIC METABOLIC PANEL (NA, K, 2022-11-06 [facility] CL, CO2, GLUCOSE, BUN, 08:56:00 Medical B ran CREATININE, CA) CBC WITH DIFF 2022-11-06 [facility] 08:56:00 [facility] N-TERMINAL PRO-BNP 2022-11-06 [facility] 08:56:00 Medical [place] EXTERNAL PROVIDER RECORDS 2022-11-06 Doctor Unassigned, [facility] 05:01:00 [facility] DISCLOSURE AND CONSENT, 2022-11-06 Doctor Unassigned, [facility] 05:01:00 [place] [facility] PROCEDURES POCT GLUCOSE (AUTOMATED) 2022-11-06 [facility] 01:40:00 [facility] POCT GLUCOSE (AUTOMATED) 2022-11-05 [facility] 22:02:00 [facility] POCT GLUCOSE (AUTOMATED) 2022-11-05 [facility] 16:39:00 [facility] TRANSTHORACIC ECHO (TTE) 2022-11-05 [facility] COMPLETE W/ CONTRAST 14:33:00 Medical [facility] POCT GLUCOSE (AUTOMATED) 2022-11-05 [facility] 12:53:00 [facility] PHOSPHORUS 2022-11-05 [facility] 09:24:00 [facility] MAGNESIUM 2022-11-05 [facility] 09:24:00 [facility] TROPONIN I 2022-11-05 [facility] 09:24:00 [facility] COMP. METABOLIC PANEL ([id number]) 2022-11-05 [facility] 09:24:00 [facility] LIPID PANEL ([id number])(TOTAL 2022-11-05 [facility] CHOLESTEROL, TRIGLYCERIDES, 09:24:00 [facility] HDL) CBC WITH DIFF 2022-11-05 [facility] 09:24:00 [facility] N-TERMINAL PRO-BNP 2022-11-05 [facility] 09:24:00 [facility] TROPONIN I 2022-11-05 [facility] 02:39:00 [facility] BLOOD CULTURE SCREEN 2022-11-04 Katherin Persaud [facility] 21:48:00 [facility] RAPID INFLUENZA A/B 2022-11-04 Katherin Persaud [facility] 20:50:00 [facility] WOUND CULTURE 2022-11-04 Katehrin Persaud [facility] 20:50:00 [facility] COVID-19 (ID NOW RAPID 2022-11-04 Katherin Persaud [facility] TESTING) 20:50:00 [facility] LAB ONLY COVID INTERPRETATION 2022-11-04 Katherin Persaud [facility] 20:50:00 Medical Branch XR CHEST 1 VW 2022-11-04 Katherin Persaud [facility] [place] 20:29:26 Medical Branch HB ECG ROUTINE & RHYTHM STRIP 2022-11-04 Katherin Persaud [facility] 19:39:09 Medical Branch PHOSPHORUS 2022-11-04 Katherin Persaud [facility] 19:31:00 Medical Branch CREATINE KINASE 2022-11-04 Katherin Persaud [facility] 19:31:00 Medical Branch MAGNESIUM 2022-11-04 Katherin Persaud [facility] 19:31:00 [facility] TROPONIN I 2022-11-04 Katherin Persaud [facility] 19:31:00 Medical Branch FREE T4 2022-11-04 [facility] [place] 19:31:00 Medical Branch THYROID STIMULATING HORMONE 2022-11-04 [facility] 19:31:00 Medical Branch COMP. METABOLIC PANEL ([id number]) 2022-11-04 Katherin Persaud [facility] 19:31:00 Medical Branch CBC WITH DIFF 2022-11-04 Katherin Persaud [facility] 19:31:00 Medical Branch GLYCOSYLATED HEMOGLOBIN (A1C) 2022-11-04 [facility] 19:31:00 Medical Branch URINALYSIS 2022-11-04 Katherin Persaud [facility] 19:31:00 [facility] N-TERMINAL PRO-BNP 2022-11-04 Katherin Persaud [facility] 19:31:00 Medical Branch FREE T3 2022-11-04 [facility] [place] 19:31:00 [facility] LACTIC ACID WHOLE BLOOD 2022-11-04 Katherin Persaud [facility] 19:30:00 Medical Branch [id number] 2022-07-06 [facility] 00:00:00 [facility] [id number] 2022-07-04 [facility] 00:00:00 [facility] [id number] 2022-07-01 [facility] 00:00:00 [facility] [id number] 2022-06-29 [facility] 00:00:00 [facility] [id number] 2022-06-28 [facility] 00:00:00 [facility] [id number] 2022-06-27 [facility] 00:00:00 [facility] [id number] 2022-06-27 [facility] 00:00:00 [facility] [id number] 2022-06-27 [facility] 00:00:00 [facility] [id number] 2022-06-27 [facility] 00:00:00 [facility] [id number] 2022-06-26 [facility] 00:00:00 [facility] [id number] 2022-06-26 [facility] 00:00:00 [facility] [id number] 2022-06-26 [facility] 00:00:00 [facility] [id number] 2022-06-26 [facility] 00:00:00 [facility] [id number] 2022-06-26 [facility] 00:00:00 [facility] [id number] 2022-06-24 [facility] 00:00:00 [facility] [id number] 2022-06-23 [facility] 00:00:00 [facility] [id number] 2022-06-22 [facility] 00:00:00 [facility] POC GLUCOSE 2022-04-26 [facility] 16:04:00 E. [place] AN ELECTIVE ENDOTRACHEAL 2022-04-26 Mariely De La Cruz [facility] AIR[facility] 15:12:00 LAPAROSCOPIC REMOVAL OR 2022-04-26 Jose Becker [facility] REPOSITIONING OF PERITONEAL 14:56:00 E. DIALYSIS CATHETER ESTIMATED GFR 2022-04-26 [facility] 13:00:00 E. POC PANEL 2022-04-26 [facility] 13:00:00 E. POC GLUCOSE 2022-03-06 [facility] 16:00:00 E. SURGICAL PATHOLOGY REQUEST 2022-03-06 Oppermann, [facility] 15:28:00 E. POC GLUCOSE 2022-03-06 [facility] 15:23:00 E. ANESTHESIA INTUBATION 2022-03-06 TrentLuzmaria gee [facility] 12:57:00 CHOLECYSTECTOMY, LAPAROSCOPIC 2022-03-06 [facility] 12:44:00 E. INSERTION, CATHETER, 2022-03-06 [facility] DIALYSIS, PERITONEAL, 12:44:00 E. LAPAROSCOPIC ESTIMATED GFR 2022-03-06 [facility] 11:50:00 E. POC PANEL 2022-03-06 [facility] 11:50:00 E. BASIC METABOLIC PANEL 2022-03-06 [facility] 11:40:00 ESTIMATED GFR 2022-03-06 [facility] 11:40:00 CBC WITH PLATELET AND 2022-03-01 [facility] DIFFERENTIAL 18:18:00 HEMOGLOBIN A1C 2022-03-01 [facility] 18:18:00 PARTIAL THROMBOPLASTIN TIME 2022-03-01 [facility] (PTT) 18:18:00 PROTHROMBIN TIME WITH INR 2022-03-01 [facility] 18:18:00 REFERRAL- REQUEST/RESPONSE 2022-02-07 [facility] ECG PRE/POST OP 2021-12-12 [facility] 20:54:02 CBC WITH PLATELET AND 2021-12-12 [facility] DIFFERENTIAL 20:25:00 HEMOGLOBIN A1C 2021-12-12 [facility] 20:25:00 TYPE AND SCREEN 2021-12-12 [facility] verónica 20:25:00 PHACOEMULSIFICATION OF 2020-10-14 Aleisha [facility] CATARACT WITH INTRAOCULAR 13:33:00 [place] [facility] LENS IMPLANT POCT GLUCOSE (AUTOMATED) 2020-10-14 Fausto Moraes [facility] 12:38:00 [facility] POCT GLUCOSE(AGE >30DAYS) 2020-10-14 Anita Edwards [facility] 12:35:00 Medical Branch ASSIGNMENT OF BENEFITS 2020-10-12 Doctor Unassigned, [facility] 16:32:53 [facility] POCT GLUCOSE(AGE >30DAYS) 2020-04-01 Bora Skinner [facility] 12:03:00 Medical Branch ASSIGNMENT OF BENEFITS 2020-03-30 Doctor Unassigned, [facility] 16:01:28 [facility] NOTICE OF BILLING PRACTICES 2020-03-23 [facility] FOR MEDICARE PATIENTS 20:49:43 [place] [facility] PATIENT FINANCIAL POLICY 2020-03-23 Doctor Unassigned, [facility] 20:49:19 [facility] NO SHOW OR MISSED APPOINTMENT 2020-03-23 Doctor Unassigned, [facility] POLICY ACKNOWLEDGEMENT 20:48:59 [place] [facility] NOTICE OF PRIVACY PRACTICES 2020-03-23 Doctor Unassigned, [facility] 20:48:48 [facility] CONSENT/REFUSAL FOR DIAGNOSIS 2020-03-23 Doctor Unassigned, [facility] AND TREATMENT 20:48:30 [facility] ASSIGNMENT OF BENEFITS 2020-03-23 Doctor Unassigned, [facility] 20:48:19 [facility] PHYSICIAN ORDERS 2020-03-23 Doctor Unassigned, [facility] 05:01:00 [facility] Knee replacement<sup>2</sup> Mem orial [place] Fusion<sup>1</sup> [facility] emilia Back fusion [facility] Plan of Care Planned Activity Planned Date Details Comments Source Future Scheduled 2023-03-[address] [facility] 00:00:00 (Season Ended) [code = Medic al Center INFLUENZA VACCINE (Season Ended)] Future Scheduled 2023-03-[address] [facility] 00:00:00 (Season Ended) [code = Medic al Center INFLUENZA VACCINE (Season Ended)] Future Scheduled 2022-11-03 Hepatitis C screening [facility] Test 07:38:23 (procedure) [code = 626402867] Future Scheduled 2022-11-03 SHINGLES VACCINES (1 Met [facility] Test 07:38:23 of 2) [code = SHINGLES VACCINES (1 of 2)] Future Scheduled 2022-11-03 BREAST CANCER [facility] Test 07:38:23 SCREENING [code = BREAST CANCER SCREENING] Future Scheduled 2022-11-03 COLONOSCOPY SCREENING [facility] Test 07:38:23 [code = COLONOSCOPY SCREENING] Future Scheduled 2022-11-03 65+ [facility]AL [facility] 07:38:23 VACCINE (3 - PCV) [code = 65+ PNEUMOCOCCAL VACCINE (3 - PCV)] Future Scheduled 2022-11-03 INFLUENZA VACCINE [facility] 07:38:23 [code = INFLUENZA VACCINE] Future Scheduled 2022-10-09 Hepatitis C screening [facility] Test 14:08:24 (procedure) [code = 247272225] Future Scheduled 2022-10-09 SHINGLES VACCINES (1 Met [facility] Test 14:08:24 of 2) [code = SHINGLES VACCINES (1 of 2)] Future Scheduled 2022-10-09 BREAST CANCER [facility] Test 14:08:24 SCREENING [code = BREAST CANCER SCREENING] Future Scheduled 2022-10-09 COLONOSCOPY SCREENING [facility] Test 14:08:24 [code = COLONOSCOPY SCREENING] Future Scheduled 2022-10-09 65+ PNEUMOCOCCAL Methodi [facility] Test 14:08:24 VACCINE (3 - PCV) [code = 65+ PNEUMOCOCCAL VACCINE (3 - PCV)] Future Scheduled 2022-10-09 INFLUENZA VACCINE Method [facility] Test 14:08:24 [code = INFLUENZA VACCINE] Future Scheduled 2022-10-09 Hepatitis C screening [facility] Test 14:08:24 (procedure) [code = 558484207] Future Scheduled 2022-10-09 SHINGLES VACCINES (1 Met [facility] Test 14:08:24 of 2) [code = SHINGLES VACCINES (1 of 2)] Future Scheduled 2022-10-09 BREAST CANCER [facility] Test 14:08:24 SCREENING [code = BREAST CANCER SCREENING] Future Scheduled 2022-10-09 COLONOSCOPY SCREENING [facility] Test 14:08:24 [code = COLONOSCOPY SCREENING] Future Scheduled 2022-10-09 65+ [facility]OCCAL [facility] 14:08:24 VACCINE (3 - PCV) [code = 65+ PNEUMOCOCCAL VACCINE (3 - PCV)] Future Scheduled 2022-10-09 INFLUENZA VACCINE [facility] Test 14:08:24 [code = INFLUENZA VACCINE] Future Scheduled 2022-10-09 Hepatitis C screening [facility] Test 14:08:24 (procedure) [code = 944134063] Future Scheduled 2022-10-09 SHINGLES VACCINES (1 Met [facility] Test 14:08:24 of 2) [code = SHINGLES VACCINES (1 of 2)] Future Scheduled 2022-10-09 BREAST CANCER [facility] Test 14:08:24 SCREENING [code = BREAST CANCER SCREENING] Future Scheduled 2022-10-09 COLONOSCOPY SCREENING [facility] Test 14:08:24 [code = COLONOSCOPY SCREENING] Future Scheduled 2022-10-09 65+ PNEUMOCOCCAL Methodi [facility] Test 14:08:24 VACCINE (3 - PCV) [code = 65+ PNEUMOCOCCAL VACCINE (3 - PCV)] Future Scheduled 2022-10-09 INFLUENZA VACCINE [facility] Test 14:08:24 [code = INFLUENZA VACCINE] Future Scheduled 2022-09-25 Hepatitis C screening [facility] Test 16:30:22 (procedure) [code = 230578812] Future Scheduled 2022-09-25 SHINGLES VACCINES (1 Met [facility] Test 16:30:22 of 2) [code = SHINGLES VACCINES (1 of 2)] Future Scheduled 2022-09-25 BREAST CANCER [facility] Test 16:30:22 SCREENING [code = BREAST CANCER SCREENING] Future Scheduled 2022-09-25 COLONOSCOPY SCREENING [facility] Test 16:30:22 [code = COLONOSCOPY SCREENING] Future Scheduled 2022-09-25 65+ [facility]OCCAL [facility] 16:30:22 VACCINE (3 - PCV) [code = 65+ PNEUMOCOCCAL VACCINE (3 - PCV)] Future Scheduled 2022-09-25 INFLUENZA VACCINE [facility] Test 16:30:22 [code = [...] SCREENING] Future Scheduled 2022-06-22 Hepatitis C screening [facility] Test 00:46:40 (procedure) [code = 275203519] Future Scheduled 2022-06-22 SHINGLES VACCINES (1 Met [facility] Test 00:46:40 of 2) [code = SHINGLES VACCINES (1 of 2)] Future Scheduled 2022-06-22 BREAST CANCER [facility] Test 00:46:40 SCREENING [code = BREAST CANCER SCREENING] Future Scheduled 2022-06-22 COLONOSCOPY SCREENING [facility] Test 00:46:40 [code = COLONOSCOPY SCREENING] Future Scheduled 2022-06-22 65+ [facility]OCOCCAL [facility] 00:46:40 VACCINE (3 - PCV) [code = 65+ PNEUMOCOCCAL VACCINE (3 - PCV)] Future Scheduled 2022-06-22 INFLUENZA VACCINE [facility] Test 00:46:40 [code = INFLUENZA VACCINE] Future Scheduled 2022-06-22 Hepatitis C screening [facility] Test 00:46:40 (procedure) [code = 690649819] Future Scheduled 2022-06-22 SHINGLES VACCINES (1 Met [facility] Test 00:46:40 of 2) [code = SHINGLES VACCINES (1 of 2)] Future Scheduled 2022-06-22 BREAST [facility]ER [facility] 00:46:40 SCREENING [code = BREAST CANCER SCREENING] Future Scheduled 2022-06-22 COLONOSCOPY SCREENING [facility] Test 00:46:40 [code = COLONOSCOPY SCREENING] Future Scheduled 2022-06-22 65+ [facility]OCOCCAL [facility] Test 00:46:40 VACCINE (3 - PCV) [code = 65+ PNEUMOCOCCAL VACCINE (3 - PCV)] Future Scheduled 2022-06-22 INFLUENZA VACCINE Method [facility] Test 00:46:40 [code = INFLUENZA VACCINE] Future Scheduled 2022-06-22 Hepatitis C screening [facility] Test 00:46:40 (procedure) [code = 062744488] Future Scheduled 2022-06-22 SHINGLES VACCINES (1 Met [facility] Test 00:46:40 of 2) [code = SHINGLES VACCINES (1 of 2)] Future Scheduled 2022-06-22 BREAST [facility]ER [facility] Test 00:46:40 SCREENING [code = BREAST CANCER SCREENING] Future Scheduled 2022-06-22 COLONOSCOPY SCREENING [facility] Test 00:46:40 [code = COLONOSCOPY SCREENING] Future Scheduled 2022-06-22 65+ [facility]OCOCCAL [facility] 00:46:40 VACCINE (3 - PCV) [code = 65+ PNEUMOCOCCAL VACCINE (3 - PCV)] Future Scheduled 2022-06-22 INFLUENZA VACCINE [facility] Test 00:46:40 [code = INFLUENZA VACCINE] Future Scheduled 2022-06-11 HEPATITIS B VACCINES Met [facility] Test 01:18:56 (1 of 3 - 3-dose series) [code = HEPATITIS B VACCINES (1 of 3 - 3-dose series)] Future Scheduled 2022-06-11 Hepatitis C screening [facility] Test 01:18:56 (procedure) [code = 034556287] Future Scheduled 2022-06-11 SHINGLES VACCINES (1 Met [facility] Test 01:18:56 of 2) [code = SHINGLES VACCINES (1 of 2)] Future Scheduled 2022-06-11 BREAST CANCER [facility] Test 01:18:56 SCREENING [code = BREAST CANCER SCREENING] Future Scheduled 2022-06-11 COLONOSCOPY SCREENING [facility] Test 01:18:56 [code = COLONOSCOPY SCREENING] Future Scheduled 2022-06-11 65+ P[facility]UMOCOCCAL [facility] Test 01:18:56 VACCINE (3 - PCV) [code = 65+ PNEUMOCOCCAL VACCINE (3 - PCV)] Future Scheduled 2022-06-11 INFLUENZA VACCINE [facility] Test 01:18:56 [code = [...] [facility] [code = COVID-[address] VACCINE (#1)] Future Scheduled 1955 COVID-19 [...] Medica l Center colon (procedure) [code = 225867385] Future Scheduled [address] [facility] 00:[facility] malignant neoplasm of Medica [facility] Center colon (procedure) [code = 625833140] Future Scheduled 1956 Sigmoidoscopy [facility] Future Scheduled 1956 Sigmoidoscopy [facility]oscopy] [facility] Future Scheduled [address] [facility] 00:00:00 malignant neoplasm of Medica l Center breast (procedure) [code = 769327315] Future Scheduled [address] [facility] 00:00:00 (combo) [code = CT Medical C enter Colonography (combo)] Future Scheduled [address] [facility] 00:00:00 malignant neoplasm of [facility]ica [facility] Center colon (procedure) [code = 865750199] Future Scheduled [address] [facility] 00:00:00 malignant neoplasm of [facility] Center colon (procedure) [code = 308825025] Future Scheduled 1956 DXA SCAN [code = DXA [facility] 00:00:00 SCAN] [facility] Future Scheduled [address] [facility] 00:00:00 malignant neoplasm of Medica l Center colon (procedure) [code = 404655212] Future Scheduled [address] [facility] 00:00:00 malignant neoplasm of [facility] Center colon (procedure) [code = 692058119] Future Scheduled 1956 Sigmoidoscopy [facility]] [facility] Future Scheduled [address] [facility] 00:00:00 malignant neoplasm of [facility] Center breast (procedure) [code = 511125159] Future Scheduled [address] [facility] 00:00:00 (combo) [code = CT Medical C enter Colonography (combo)] Future Scheduled [address] [facility] 00:00:00 malignant neoplasm of Medica [facility] Center colon (procedure) [code = 047373070] Future Scheduled [address] [facility] 00:00:00 malignant neoplasm of Medica [facility] Center colon (procedure) [code = 183966567] Future Scheduled 1956 DXA SCAN [code = DXA [facility] 00:00:00 SCAN] [facility] Future Scheduled [address] [facility] 00:00:00 malignant neoplasm of Medica [facility] Center colon (procedure) [code = 600386150] Future Scheduled [address] [facility] 00:00:00 malignant neoplasm of Medica l Center colon (procedure) [code = 496007372] Future Scheduled 1956 Sigmoidoscopy [facility]] [facility] Future Scheduled [address] [facility] 00:00:00 malignant neoplasm of [facility]ica [facility] Center breast (procedure) [code = 409495200] Future Scheduled [address] 00:00:00 malignant neoplasm of [facility]ica [facility] Center breast (procedure) [code = 686736056] Future Scheduled [address] [facility] 00:00:00 (combo) [code = CT Medical C enter Colonography (combo)] Future Scheduled [address] [facility] colon (procedure) [code = 122839402] Future Scheduled [address] [facility] colon (procedure) [code = 340962532] Future Scheduled 1956 DXA SCAN [code = DXA [facility] 00:[facility]:00 SCAN] [facility] Future Scheduled [address] [facility] 00:[facility]:00 [facility] colon (procedure) [code = 336805871] Future Scheduled [address] [facility] 00:[facility]:00 [facility] colon (procedure) [code = 238767732] Future Scheduled 1956 [facility] [address] [facility] 00:[facility]:00 (combo) [code = CT Medical C enter Colonography (combo)] Future Scheduled [address] [facility] 00:[facility]:00 [facility] breast (procedure) [code = 162639680] Future Scheduled [address] [facility] 00:00:00 (combo) [code = CT Medical C enter Colonography (combo)] Future Scheduled [address] [facility] 00:[facility]:00 [facility] colon (procedure) [code = 920993082] Future Scheduled [address] [facility] 00:[facility]:00 [facility] colon (procedure) [code = 185814470] Future Scheduled [address] [facility] 00:[facility]:00 [facility] colon (procedure) [code = 123286099] Future Scheduled 1956 DXA SCAN [code = DXA [facility] 00:00:00 SCAN] [facility] Future Scheduled [address] [facility] 00:00:00 [facility] colon (procedure) [code = 294728974] Future Scheduled [address] [facility] 00:00:00 [facility] colon (procedure) [code = 983819682] Future Scheduled 1956 [facility]oid[facility]] [facility] Future Scheduled [address] [facility] 00:00:00 [facility] colon (procedure) [code = 828842923] Future Scheduled [address] [facility] 00:00:00 [facility] breast (procedure) [code = 984407942] Future Scheduled [address] [facility] 00:00:00 (combo) [code = CT Medical C enter Colonography (combo)] Future Scheduled [address] [facility] 00:00:00 [facility] colon (procedure) [code = 127318533] Future Scheduled [address] [facility] 00:00:00 [facility] colon (procedure) [code = 744584198] Future Scheduled 1956 DXA SCAN [code = DXA [facility] 00:00:00 SCAN] [facility] Future Scheduled 1956 DXA SCAN [code = DXA [facility] 00:00:00 SCAN] [facility] Future Scheduled [address] [facility] 00[facility]00:00 [facility] colon (procedure) [code = 656837016] Future Scheduled [address] [facility] 00:00:00 [facility] colon (procedure) [code = 295183953] Future Scheduled 1956 [facility]oidoscopy [facility]] [facility] Future Scheduled [address] [facility] 00:00:00 [facility] colon (procedure) [code = 265491215] Future Scheduled [address] [facility] 00:00:00 [facility] breast (procedure) [code = 497475843] Future Scheduled [address] [facility] 00:00:00 (combo) [code = CT Medical C enter Colonography (combo)] Future Scheduled [address] [facility] 00:00:00 [facility] colon (procedure) [code = 054028577] Future Scheduled [address] [facility] 00:00:00 [facility] colon (procedure) [code = 234863472] Future Scheduled 1956 DXA SCAN [code = DXA [facility] 00:00:00 SCAN] [facility] Future Scheduled [address] [facility] 00:00:00 [facility] colon (procedure) [code = 195511720] Future Scheduled [address] [facility] 00:00:00 [facility] colon (procedure) [code = 079272996] Future Scheduled 1956 [facility]] [facility] Future Scheduled [address] [facility] 00:00:00 [facility] breast (procedure) [code = 301891664] Future Scheduled [address] [facility] 00:00:00 (combo) [code = CT Medical C enter Colonography (combo)] Future Scheduled [address] [facility] 00:00:00 [facility] colon (procedure) [code = 871524125] Future Scheduled [address] [facility] 00:00:00 [facility] colon (procedure) [code = 746014614] Future Scheduled 1956 DXA SCAN [code = DXA [facility] 00:00:00 SCAN] [facility] Future Scheduled [address] [facility] 00:00:00 [facility] colon (procedure) [code = 843931835] Encounters Start End Encounter Admission Attending Care Care Encounter Source Date/Time Date/Time Type Type Clinicians Facility Department ID 2022-11-08 Outpatient 3 [id number] E[facility] CRD [id number] [facility] 09:30:23 [facility] [place] 2022-11-07 Outpatient 3 [id number] ENC[facility] REF [id number] [facility] 21:38:12 0502 [facility] [place] 2022-08-14 Outpatient David [facility] [id number] Common 07:43:01 [facility] [address] [facility] 2022-08-04 Outpatient Hernandez, STLMLC STLMLC [id number] Common 13:26:01 Dann [facility] 2022-08-03 Outpatient Hernandez, STLMLC STLMLC [id number] Common 14:53:01 Dann [facility] 2022-07-25 Outpatient Hernandez, STLMLC STLMLC [id number] Common 15:59:02 Dann [facility] 2022-07-24 Outpatient Hernandez, STLMLC STLMLC [id number] Common 07:39:00 Dann [facility] 2022-07-19 Outpatient Hernandez, STLMLC STLMLC [id number] Common 08:46:01 Dann [address] [facility] 2022-07-15 Inpatient AR Schmid, HCACL ADMI [id number] [facility] 11:05:[address] [place] [address] 2022-06-20 [facility] [id number] [facility] 00[facility]:00 [facility] 2022-06-20 [facility] [id number] [facility] 00:00:00 [facility] 2022-06-15 Outpatient Hernandez, STLMLC STLMLC [id number] Common 08:26:02 Dann [facility] 2022-05-25 Outpatient Hernandez, STLMLC STLMLC [id number] Common 11:25:01 Dann [facility] 2022-02-27 Outpatient Hernandez, STLMLC STLMLC [id number] Common 10:42:02 Dann [facility] 2022-02-03 Outpatient Myrick, STLMLC STLMLC [id number] Common 12:12:00 Avnee [facility] 2022-01-31 Outpatient Myrick, STLMLC STLMLC [id number] Common 12:38:00 Avnee [facility] 2021-12-02 Outpatient Myrick, STLMLC [facility] [id number] Common 15:52:01 Avnee [facility] 2021-12-01 Outpatient Myrick, STLMLC [facility] [id number] Common 10:24:03 Avnee [facility] 2021-11-21 Outpatient Myrick, STLMLC [facility] [id number] Common 10:05:12 Avnee [facility] 2021-11-08 Outpatient Myrick, STLMLC [facility] [id number] Common 08:37:01 Avnee [facility] 2021-11-04 Outpatient Myrick, STMARYLC [facility] [id number] Common 14:15:04 Avnee [facility] 2021-10-31 Outpatient Alexandra Arrieta STLMLC [facility] [id number] Common 09:40:02 [facility] 2021-08-04 Outpatient 3 [id number] ENCPL REF [id number] [facility] 13:44:15 0117 [facility] [place] 2021-08-04 Outpatient 3 [id number] ENCPL REF [id number] [facility] 13:21:20 1122 [facility] [place] 2021-05-08 Outpatient Estevan MORAES [facility] OPH [id number] Univers 08:53:46 FAUSTO agus [facility] 2021-05-06 Outpatient Estevan MORAES [facility] ECTOR [id number] Univers 18:47:42 FAUSTO [facility] 2022-11-08 2022-11-08 Transition JENNY Ruiz 1.2.840.114 [id number] Univers 00:00:00 00:00:00 of Danish CHASE 350.1.13.10 it y of MARY 4.2.7.2.686 Jonelle s [id number] [address] 2022-11-04 2022-11-07 Outpatient Aguila URBAN [facility] [id number] Univers 13:24:00 17:38:00 [place] adam [facility] 2022-11-04 2022-11-07 Emergency Katherin Persaud [facility] 1.2.840 .114 [id number] [facility] 13:24:00 17:38:00 [place] [facility] [id number] [place] [id number] [place] 2022-08-15 2022-08-15 OFFICE STLMLC STLMLC [id number] Co mmon 00:00:00 00:00:00 VISIT [facility] LEVEL 4 [facility] 2022-07-26 2022-07-26 (TEL) STLMLC STLMLC [id number] Co mmon 00:00:00 00:00:00 [facility] 2022-07-13 2022-07-13 (TEL) STLMLC STLMLC [id number] Co mmon 00:00:00 00:00:00 [facility] 2022-06-22 2022-07-07 Inpatient UR Adonis Gaytan [facility].01 [id number] [id number] [facility] 09:01:00 17:11:00 00 [facility] 2022-06-08 2022-06-08 (TEL) STLMLC STLMLC [id number] Co mmon 00:00:00 00:00:00 [facility] 2022-05-31 2022-05-31 (TEL) STLMLC STLMLC [id number] Co mmon 00:00:00 00:00:00 [facility] 2022-04-26 2022-04-26 [facility], 1.2.840.1 [id number] 21 [id number] Methodi 06:55:00 12:55:00 Encounter Jose E. 49421.1.[address] 3.430.2.7 Hospit a .3.580532 l .8 2022-04-26 2022-04-26 [facility], 1.2.840.1 [id number] 21 [id number] Methodi 06:55:00 12:55:00 Encounter Jose E. 62048.1.[address] 3.430.2.7 Hospit a .3.719920 l .8 2022-04-26 2022-04-26 Anesthesia Stormy Waldroperin Baldwin 1.2.840.1 1 [id number] Methodi 09:56:00 11:03:00 Event Ce Knutson 82040.1.[address] 3.430.2.7 Hospit a .3.501513 l .8 2022-04-26 2022-04-26 Anesthesia Benjie Reji Baldwin 1.2.840.1 1 [id number] Methodi 09:56:00 11:03:00 Event Ce Knutson 75047.1.[address] 3.430.2.7 Hospit a .3.290998 l .8 2022-04-26 2022-04-26 Surgery Oppermann, 1.2.840.1 [id number] 636 [id number] Methodi 09:15:00 10:45:00 Jose E. 63024.1.1 677 s t 3.430.2.7 Hospit a .3.043629 l .8 2022-04-26 2022-04-26 Surgery Oppermann, 1.2.840.1 [id number] 818 [id number] Methodi 09:15:00 10:45:00 Jose E. 42677.1.1 677 s t 3.430.2.7 Hospit a .3.790363 l .8 2022-04-26 2022-04-26 Travel 1.2.840.1 1.2.019.174 4297 787877 Methodi 00:00:00 00:00:[address] 3.430.2.7 0.2.7.3.698 Ho spita .3.749084 084.8 l .8 2022-04-26 2022-04-26 Travel 1.2.840.1 1.2.096.803 2167 801870 Methodi 00:00:00 00:00:[address] 3.430.2.7 0.2.7.3.698 Ho spita .3.280546 084.8 l .8 2022-04-24 2022-04-24 Travel 1.2.840.1 1.2.804.106 5230 940309 Methodi 00:00:00 00:00:[address] 3.430.2.7 0.2.7.3.698 Ho spita .3.002310 084.8 l .8 2022-04-24 2022-04-24 Travel 1.2.840.1 1.2.440.237 3369 874514 Methodi 00:00:00 00:00:[address] 3.430.2.7 0.2.7.3.698 Ho spita .3.805970 084.8 l .8 2022-04-21 2022-04-21 Prep for Oppermann, 1.2.840.1 [id number] Methodi 00:00:00 00:00:00 Surgery Jose E. 08426.1.1 940 s t 3.430.2.7 Hospit a .3.979249 l .8 2022-04-21 2022-04-21 Orders Oppermann, 1.2.840.1 [id number] 337 [id number] Methodi 00:00:00 00:00:00 Only Jose E. 86039.1.1 613 s t 3.430.2.7 Hospit a .3.557463 l .8 2022-04-21 2022-04-21 Prep for Oppermann, 1.2.840.1 [id number] Methodi 00:00:00 00:00:00 Surgery Jose E. 80215.1.1 940 s t 3.430.2.7 Hospit a .3.791152 l .8 2022-04-21 2022-04-21 Orders Oppermann, 1.2.840.1 [id number] 336 [id number] Methodi 00:00:00 00:00:00 Only Jose E. 31765.1.1 613 s t 3.430.2.7 Hospit a .3.410963 l .8 2022-04-05 2022-04-05 Outpatient R ZAYRA [facility] [id number] Univers 15:00:00 15:00:00 CARSON adam [facility] 2022-03-21 2022-03-21 Office Oppermann, 1.2.840.1 [id number] 099 [id number] Methodi 11:30:00 12:00:24 Visit Jose Keller 48940.1.1 407 s t 3.430.2.7 Hospit a .3.814134 l .8 2022-03-21 2022-03-21 Office Oppermann, 1.2.840.1 [id number] 097 [id number] Methodi 11:30:00 12:00:24 Visit Jose Keller 10440.1.1 407 s t 3.430.2.7 Hospit a .3.221351 l .8 2022-03-21 2022-03-21 Travel 1.2.840.1 1.2.218.296 1955 367160 Methodi 00:00:00 00:00:[address] 3.430.2.7 0.2.7.3.698 Ho spita .3.459264 084.8 l .8 2022-03-21 2022-03-21 Travel 1.2.840.1 1.2.677.557 9876 466700 Methodi 00:00:00 00:00:[address] 3.430.2.7 0.2.7.3.698 Ho spita .3.064386 084.8 l .8 2022-03-15 2022-03-15 Outpatient Estevan IVERSON [facility] [id number] Univers 10:00:00 10:00:00 CARSON adam [facility] 2022-03-14 2022-03-14 (TEL) STLMLC STLMLC [id number] Co mmon 00:00:00 00:00:00 [facility] 2022-03-06 2022-03-06 Hospital [facility], 1.2.840.1 [id number] 21 [id number] Methodi 05:46:00 12:05:00 Encounter Jose Keller 60955.1.[address] 3.430.2.7 Hospit a .3.056548 l .8 2022-03-06 2022-03-06 Hospital [facility], 1.2.840.1 [id number] Methodi 05:46:00 12:05:00 Encounter Jose Keller 10002.1.[address] 3.430.2.7 Hospit a .3.723663 l .8 2022-03-06 2022-03-06 Anesthesia Yvan Jory Borjaon 1.2.840. 1 [id number] Methodi 07:44:00 09:46:00 Event Corrina Cavanaugh 31948.1.[address] 3.430.2.7 Hospit a .3.403694 l .8 2022-03-06 2022-03-06 Anesthesia YvanJory martin [place] 1.2.840. 1 [id number] Methodi 07:44:00 09:46:00 Event Corrina Cavanaugh 18974.1.[address] 3.430.2.7 Hospit a .3.454334 l .8 2022-03-06 2022-03-06 Surgery [facility], 1.2.840.1 [id number] 241 [id number] Methodi 07:45:00 09:05:00 Jose Keller 95070.1.1 269 s t 3.430.2.7 Hospit a .3.197705 l .8 2022-03-06 2022-03-06 Surgery [facility], 1.2.840.1 [id number] 394 [id number] Methodi 07:45:00 09:05:00 Jose Keller 87436.1.1 269 s t 3.430.2.7 Hospit a .3.126697 l .8 2022-03-01 2022-03-01 Pre-Admiss Oppermann, 1.2.840.1 [id number] Methodi 13:00:00 14:00:00 ion Jose Keller 46095.1.1 998 s t Testing 3.430.2.7 Hospit a .3.557058 l .8 2022-03-01 2022-03-01 Pre-Admiss Eugenio, 1.2.840.1 [id number] Methodi 13:00:00 14:00:00 ion Jose Keller 54293.1.1 998 s t Testing 3.430.2.7 Hospit a .3.124198 l .8 2022-03-01 2022-03-01 Travel 1.2.840.1 1.2.173.721 1065 915621 Methodi 00:00:00 00:00:[address] 3.430.2.7 0.2.7.3.698 Ho spita .3.923559 084.8 l .8 2022-03-01 2022-03-01 Travel 1.2.840.1 1.2.970.900 2349 328281 Methodi 00:00:00 00:00:[address] 3.430.2.7 0.2.7.3.698 Ho spita .3.556617 084.8 l .8 2022-02-27 2022-02-27 SUB ANNUAL [facility] [id number] Common 00:00:00 00:00:00 MCR [facility] WELLNESS - [facility] VISIT [facility] 2022-02-27 2022-02-27 OFFICE [facility] [id number] Co mmon 00:00:00 00:00:00 VISIT [facility] ESTAB PT - [facility] LEVEL 4 [facility] 2022-02-27 2022-02-27 (TEL) [facility] [id number] Co mmon 00:00:00 00:00:00 [facility] - [facility] 2022-02-07 2022-02-07 Orders Doctor VELOZ 1.2.840.114 [id number] Univers 00:00:00 00:00:00 Only Unassigned, CINDY 350.1.13.10 ity of [place] [facility] 4.2.7.2.686 Negrito as [id number] [address] 2022-02-02 2022-02-02 (TEL) STLMLC STLMLC [id number] Co mmon 00:00:00 00:00:00 [facility] 2022-01-31 2022-01-31 Travel 1.2.840.1 1.2.112.631 9787 347572 Methodi 00:00:00 00:00:[address] 3.430.2.7 0.2.7.3.698 Ho spita .3.265302 084.8 l .8 2022-01-31 2022-01-31 Travel 1.2.840.1 1.2.280.690 0997 955631 Methodi 00:00:00 00:00:[address] 3.430.2.7 0.2.7.3.698 Ho spita .3.331252 084.8 l .8 2022-01-27 2022-01-27 (TEL) STLMLC STLMLC [id number] Co mmon 00:00:00 00:00:00 [facility] 2021-12-30 2021-12-30 (TEL) STLMLC STLMLC [id number] Co mmon 00:00:00 00:00:00 [facility] 2021-12-19 2021-12-19 (TEL) STLMLC STLMLC [id number] Co mmon 00:00:00 00:00:00 [facility] 2021-12-13 2021-12-13 (TEL) STLMLC STLMLC [id number] Co mmon 00:00:00 00:00:00 [facility] 2021-12-12 2021-12-12 Pre-Admiss Eugenio, 1.2.840.1 [id number] Methodi 15:00:00 16:00:00 ion Jose Luevano. 18134.1.1 317 s t Testing 3.430.2.7 Hospit a .3.478788 l .8 2021-12-12 2021-12-12 Pre-Admiss Eugenio, 1.2.840.1 [id number] Methodi 15:00:00 16:00:00 ion Jose Luevano. 54546.1.1 317 s t Testing 3.430.2.7 Hospit a .3.282984 l .8 2021-12-12 2021-12-12 Travel 1.2.840.1 1.2.050.687 5185 580407 Methodi 00:00:00 00:00:[address] 3.430.2.7 0.2.7.3.698 Ho spita .3.230249 084.8 l .8 2021-12-12 2021-12-12 Travel 1.2.840.1 1.2.680.671 4168 456450 Methodi 00:00:00 00:00:[address] 3.430.2.7 0.2.7.3.698 Ho spita .3.167509 084.8 l .8 2021-12-08 2021-12-08 (TEL) STLMLC STLMLC [id number] Co mmon 00:00:00 00:00:00 [facility] 2021-12-01 2021-12-01 (TEL) STLMLC STLMLC [id number] Co mmon 00:00:00 00:00:00 [facility] 2021-11-30 2021-11-30 (TEL) STLMLC STLMLC [id number] Co mmon 00:00:00 00:00:00 [facility] 2021-11-25 2021-11-25 (TEL) STLMLC STLMLC [id number] Co mmon 00:00:00 00:00:00 [facility] 2021-11-21 2021-11-21 (TEL) STLMLC STLMLC [id number] Co mmon 00:00:00 00:00:00 [facility] 2021-11-18 2021-11-18 (TEL) STLMLC STLMLC [id number] Co mmon 00:00:00 00:00:00 [facility] 2021-11-15 2021-11-15 Office Oppermann, 1.2.840.1 [id number] 242 [id number] Methodi 13:00:00 14:01:57 Visit Jose Keller 77462.1.1 465 s t 3.430.2.7 Hospit a .3.750235 l .8 2021-11-15 2021-11-15 Office Oppermann, 1.2.840.1 848913872 584 0987405 Methodi 13:00:00 14:01:57 Visit Jose Keller 22325.1.1 465 s t 3.430.2.7 Hospit a .3.710776 l .8 2021-11-15 2021-11-15 Prep for Allen, 1.2.840.1 [id number] 45871 18056 Methodi 00:00:00 00:00:00 Surgery [place] P [address]26.1.[address] 3.430.2.7 Hospit a .3.031415 l .8 2021-11-15 2021-11-15 Travel 1.2.840.1 1.2.724.527 5072 867288 Methodi 00:00:00 00:00:[address] 3.430.2.7 0.2.7.3.698 Ho spita .3.064882 084.8 l .8 2021-11-15 2021-11-15 (TEL) STLC STLC [id number] Co mmon 00:00:00 00:00:00 [facility] 2021-11-15 2021-11-15 Prep for Allen, 1.2.840.1 [id number] 55160 28292 Methodi 00:00:00 00:00:00 Surgery [place]mi P [address]661.1.[address] 3.430.2.7 Hospit a .3.698526 l .8 2021-11-15 2021-11-15 Travel 1.2.840.1 1.2.249.685 3429 038409 Methodi 00:00:00 00:00:[address] 3.430.2.7 0.2.7.3.698 Ho spita .3.045861 084.8 l .8 2021-11-14 2021-11-14 (TEL) STLMLC STLMLC [id number] Co mmon 00:00:00 00:00:00 [facility] 2021-11-04 2021-11-04 (TEL) STLMLC STLMLC [id number] Co mmon 00:00:00 00:00:00 [facility] 2021-10-20 2021-10-20 Telephone Stephane, 1.2.840.1 [id number] 2100 787692 Methodi 00:00:00 00:00:[address] 3.430.2.7 Hospit a .3.903579 l .8 2021-10-05 2021-10-05 Documentat Chace, 1.2.840.1 [id number] 21 [id number] Methodi 00:00:00 00:00:00 is[address] Ortiz 21327.1.[address] 3.430.2.7 Hospit a .3.201841 l .8 2021-09-22 2021-09-22 Travel 1.2.840.1 1.2.008.540 6855 394148 Methodi 00:00:00 00:00:[address] 3.430.2.7 0.2.7.3.698 Ho spita .3.704490 084.8 l .8 2021-08-23 2021-08-23 Ambulatory nullFlavo MNA 80439 43403 Memoria 14:15:00 14:15:00 Pre-Reg r Neurology 06 l Lawrence [place] 2021-08-23 2021-08-23 Ambulatory nullFlavo MNA 94560 62427 Memoria 14:15:00 14:15:00 Pre-Reg r Neurology 06 josy Saucedo 2021-08-23 2021-08-23 Outpatient STEFANI KO [id number] Memoria 08:15:00 08:15:00 06 josy Saucedo 2021-08-23 2021-08-23 [facility] [id number] 08:15:00 08:15:00 Farhan 06 Arian 2021-07-12 2021-07-12 Ambulatory nullFlavo MNA 43888 52295 Memoria 14:15:00 14:15:00 Pre-Reg r Neurology 05 josy Saucedo 2021-07-12 2021-07-12 Ambulatory nullFlavo MNA 36421 45316 Memoria 14:15:00 14:15:00 Pre-Reg r Neurology 05 josy Saucedo 2021-07-12 2021-07-12 [facility] 710 [id number] 08:15:00 08:15:00 Farhan Mela Don 2021-06-14 2021-06-14 Telephone Courtney, 1.2.840.1 [id number] 918 [id number] Methodi 00:00:00 00:00:[address] 3.430.2.7 Hospit a .3.323844 l .8 2021-06-01 2021-06-01 Outpatient ELIANA ELIANA [id number] Memoria 09:00:00 09:00:00 05 josy Saucedo 2021-05-19 2021-05-19 Ambulatory nullFlavo MNA [id number] Memoria 14:15:00 14:15:00 Pre-Reg r Neurology 04 josy Saucedo 2021-05-19 2021-05-19 Ambulatory nullFlavo MNA [id number] Memoria 14:15:00 14:15:00 Pre-Reg r Neurology 04 l Estelle Saucedo 2021-05-19 2021-05-19 Outpatient CORWIN [facility] [id number] 08:15:00 08:15:00 Farhan Mehdi Don 2021-05-10 2021-05-10 Outpatient MHIE IE [id number] Memoria 15:45:00 15:45:00 04 josy Saucedo 2021-03-31 2021-03-31 Ambulatory nullFlavo MNA [id number] Memoria 13:15:00 13:15:00 Pre-Reg r Neurology 03 l Estelle Saucedo 2021-03-31 2021-03-31 Ambulatory nullFlavo MNA [id number] Memoria 13:15:00 13:15:00 Pre-Reg r Neurology 03 l Estelle Saucedo 2021-03-31 2021-03-31 Outpatient MHIE MHIE [id number] Memoria 08:15:00 08:15:00 03 josy Saucedo 2021-03-31 2021-03-31 [facility] [id number] 08:15:00 08:15:00 Farhan 03 Arian 2021-02-23 2021-02-24 Outpatient nullFlavo MNA [id number] Memoria 20:00:00 04:59:59 r Neurology 02 l Estelle Saucedo 2021-02-23 2021-02-24 Outpatient nullFlavo MNA [id number] Memoria 20:00:00 04:59:59 r Neurology 02 josy Saucedo 2021-02-23 2021-02-23 [facility] [id number] 15:00:00 23:59:59 Farhan Laurie Don 2021-02-23 2021-02-23 Outpatient MHIE IE [id number] Memoria 15:00:00 15:00:00 02 josy Saucedo 2020-10-14 2020-10-14 Surgery [facility] 1.2.840.114 [id number] 08:34:00 09:10:00 Greg 350.1.13.10 Keegan 4.2.7.2.686 Surgical [id number] [place] [address] 2020-10-14 2020-10-14 Surgery Aleisha, [facility] 1.2.840.114 [id number] [facility] 08:34:00 09:10:00 Fausto Garza 350.1.13.10 [place] [id number] [facility] [address] 2020-10-12 2020-10-12 Transmitter Engineer In Charge Jyoti, [facility] 1.2.840.114 [id number] 11:40:06 11:55:06 Visit Lab Main [place] 350.1.13.10 [place] 4.2.7.2.686 Professio [id number] [address] 2020-10-12 2020-10-12 Transmitter Engineer In Charge Jyoti, [facility] Lab Main [facility] 1.2.8 40.114 [id number] [facility] 11:40:06 11:55:06 Visit Fausto Moraes 350.1.1 3.10 ity [place] [id number] Dc dical [address] 2020-10-12 2020-10-12 Laboratory Only, [facility] 1.2.840.114 [id number] 11:34:36 11:49:36 Only Test [place] 350.1.13.10 [place] 4.2.7.2.686 [place] [id number] [facility] 2020-10-12 2020-10-12 Laboratory Only, [facility] Test [facility] 1.2.840. 114 [id number] [facility] 11:34:36 11:49:36 Only Fausto Moraes 350.1.1 3.10 [place]y [place] [id number] [address] 2020-10-12 2020-10-12 Outpatient R ALEISHA, [facility] [id number] [facility] 10:45:00 10:45:00 FAUSTO adam of [facility] 2020-10-12 2020-10-12 Orders Doctor VELOZ 1.2.840.114 [id number] 00:00:00 00:00:00 Only UnassignedCINDY 350.1.13.10 [place] [facility] 4.2.7.2.686 [id number] 009 2020-10-12 2020-10-12 Orders Doctor VELOZ 1.2.840.114 [id number] Univers 00:00:00 00:00:00 Only Unassigned, CINDY 350.1.13.10 [facility] 4.2.7.2.686 [place] as [id number] [address] 2020-05-13 2020-05-14 Outpatient SUSAN WHITE [facility] 021 [id number] [place] 00:00:00 00:00:00 361 Method i 2020-05-11 2020-05-11 Outpatient AMY [facility] [id number] [place] 00:00:00 00:00:00 IMRAN 611 Method i 2020-04-01 2020-04-01 [facility] 1.2.840.114 [id number] 06:36:00 10:10:00 Encounter Fausto Graza 350.1.13.10 [place] 4.2.7.2.686 Surgical [id number] [place] [address] 2020-04-01 2020-04-01 [facility] 1.2.840.114 [id number] [facility] 06:36:00 10:10:00 Encounter Fausto Garza 350.1.13.10 [place] [id number] [facility] 071 [place] 2020-04-01 2020-04-01 [facility] 1.2.840.11 4 [id number] 08:01:00 08:33:00 [place] 350.1.13.10 [place] 4.2.7.2.686 Surgical [id number] [place] [address] 2020-04-01 2020-04-01 [facility] 1.2.840.11 4 [id number] [facility] 08:01:00 08:33:00 [place] [facility] [place] 350.1.13.10 ity [place] [id number] [address] 2020-03-31 2020-03-31 [facility] [id number] Univers 09:30:00 09:30:00 FAUSTO adam [facility] 2020-03-30 2020-03-30 Outpatient R [facility] [id number] Univers 12:45:00 12:45:00 ity of [facility] 2020-03-30 2020-03-30 Laboratory Only, Adc Test [facility] 1.2.840. 114 [id number] Univers 11:17:56 11:32:56 Only Fausto Moraes [place] 350.1.1 3.10 [place] [id number] [address] 2020-03-30 2020-03-30 Orders Doctor ROSELIA 1.2.840.114 [id number] Univers 00:00:00 00:00:00 Only Unassigned, CINDY 350.1.13.10 ity of [facility] 4.2.7.2.686 [place] [id number] [address] 2020-03-25 2020-03-25 [facility] [id number] [place] 00:00:00 00:00:00 IMRKIRIT 879 Method i 2020-03-23 2020-03-23 Transmitter Engineer In Charge Juanpablo Montes Lab Main [facility] 1.2.8 40.114 [id number] Univers 15:51:10 16:06:10 Visit Fausto Moraes [place] 350.1.1 3.10 ity [place]2.[place] [facility] [id number] [address] 2020-03-23 2020-03-23 Outpatient Estevan MORAES [facility] [id number] Univers 16:00:00 16:00:00 FAUSTO adam [facility] 2020-03-23 2020-03-23 Outpatient AMY [facility] [id number] [place] 00:00:00 00:00:00 IMRKIRIT 636 Method i 2020-03-23 2020-03-23 Outpatient MODESTA [facility] 170 [id number] [place] 00:00:00 00:00:00 MICHELE [address] Results Test Description Test Time Test Comments Results Result Comments Source POCT GLUCOSE (AUTOMATED) 2022-11-07 21:58:54 Test Item Value Reference Range Interpretation Comme nts POCT GLU (test code = 6966941152) 184 mg/dL 70-110 H Lab Interpretation (test code = 22781-7) Abnormal [facility] GLUCOSE (AUTOMATED)2022-11-07 16:45:57 Test Item Value Reference Range Interpretation Comments POCT GLU (test code = 4417071241) 196 mg/dL 70-110 H Lab Interpretation (test code = Abnormal 26240-6) [facility] GLUCOSE (AUTOMATED)2022-11-07 13:12:51 Test Item Value Reference Range Interpretation Comments POCT GLU (test code = 4369516871) 164 mg/dL 70-110 H Lab Interpretation (test code = Abnormal 55263-5) [facility] Surface Antibody (HBsAb)2022-11-06 23:00:28 Test Item Value Reference Range Interpretation Comments HBsAB (test code = Indeterminate 2283831579) HBsAb 6.20 mIU/mL Semi-Quantitative (test code = 2195121789) BRAD (test code = Unable to determine if BRAD) antibody to Hepatitis B Surface Antigen is present at levels consistent with immunity. ?Patient's immune status should be assessed with other clinical information and/or retesting in 4-6 weeks as clinically indicated. ?If any questions, please contact Clinical Chemistry Director primary care nurse practitioner at .Interpretati on: ?Hepatitis B Surface Antibody ? Negative - Patient is considered to be not immune to infection with HBV. ? ? Positive - Anti-HBs detected at greater than or equal to 12 mIU/mL. ?Patient is considered to be immune to infection with HBV. ? [facility] GLUCOSE (AUTOMATED)2022-11-06 21:40:13 Test Item Value Reference Range Interpretation Comments POCT GLU (test code = 9725235802) 180 mg/dL 70-110 H Lab Interpretation (test code = Abnormal 38864-0) [facility] B Surface Antigen (HBsAg)2022-11-06 20:40:07 Test Item Value Reference Range Interpretation Comments HBsAg Semi-Quantitative (test code = 0.21 Negative 5195-3) [facility] GLUCOSE (AUTOMATED)2022-11-06 16:28:02 Test Item Value Reference Range Interpretation Comments POCT GLU (test code = 0691779778) 177 mg/dL 70-110 H Lab Interpretation (test code = Abnormal 98312-2) [facility] [id number] 15:24:24 Test Item Value Reference Range Interpretation Comments TROPONIN I (test code = 0.047 ng/mL <=0.034 H 3462305374) BRAD (test code = BRAD) Reference (Normal) Range (defined by the 99th percentile reference limit): <= 0.034 ng/mL Note: Cardiac troponin begins to rise 3-4 hours after the onset of ischemia. Repeat in 4-6 hours if the sample was drawn within 3-4 hours of the onset of the symptom and found normal. Diagnosis of myocardial injury is made with acute changes in cTn concentrations with at least one serial sample above the 99th percentile upper reference limit (URL), taken together with the patient's clinical presentation. Biotin has been reported to cause a negative bias, interpret results relative to patient's use of biotin. Lab Interpretation Abnormal (test code = 54903-2) [facility] GLUCOSE (AUTOMATED)2022-11-06 12:43:24 Test Item Value Reference Range Interpretation Comments POCT GLU (test code = 5271371013) 158 mg/dL 70-110 H Lab Interpretation (test code = Abnormal 96244-8) [facility] GLUCOSE (AUTOMATED)2022-11-06 01:41:32 Test Item Value Reference Range Interpretation Comments POCT GLU (test code = 6744348644) 218 mg/dL 70-110 H Lab Interpretation (test code = Abnormal 35700-1) [facility] GLUCOSE (AUTOMATED)2022-11-05 22:03:11 Test Item Value Reference Range Interpretation Comments POCT GLU (test code = 0361144885) 156 mg/dL 70-110 H Lab Interpretation (test code = Abnormal 59029-9) [facility] GLUCOSE (AUTOMATED)2022-11-05 16:40:51 Test Item Value Reference Range Interpretation Comments POCT GLU (test code = 9022416227) 197 mg/dL 70-110 H Lab Interpretation (test code = Abnormal 92517-1) [facility] GLUCOSE (AUTOMATED)2022-11-05 12:59:19 Test Item Value Reference Range Interpretation Comments POCT GLU (test code = 6871653422) 126 mg/dL 70-110 H Lab Interpretation (test code = Abnormal 53369-4) [facility] [place] [facility] [id number] 02:54:06 Test Item Value Reference Range Interpretation Comments TSH (test code = 2.59 See_Comment Biotin has been 6479253373) reported to cau se a negative bias, interpret resul ts relative to vicky colón's use of biotin. [Automated mess age] The system [employer] generated this result transmitted ref erence range: 0.45 - 4 .70 mIU/L. The refe rence range was not u sed to interpret this result as normal/abnor mal. Lab Interpretation (test Normal code = 35243-9) [facility] [id number] 02:00:37 Test Item Value Reference Range Interpretation Comments FREE T4 (test code = 1.57 See_Comment [Autom ated message] 8206056238) The system [employer] generated this result transmitted ref erence range: 0.78 - 2 .20 ng/dL:. The ref erence range was not u sed to interpret this result as normal/abnor mal. Lab Interpretation (test Normal code = 03108-1) [facility] [id number] 02:00:17 Test Item Value Reference Range Interpretation Comments FREE T3 (test code = 8235513895) 3.61 pg/mL 2.77-5.27 Lab Interpretation (test code = Normal 57832-1) [facility]OSYLATED HEMOGLOBIN (A1C)2022-11-05 01:49:39 Test Item Value Reference Range Interpretation Comments HGB A1C (test code = 4.7 % 4.0-5.7 4548-4) BRAD (test code = BRAD) Reference RangesNormal: <5.7%Prediabetes: 5.7 - 6.4%Diabetes: > 6.5% Lab Interpretation (test Normal code = 18362-8) [facility] [id number] 21:11:09 Test Item Value Reference Range Interpretation Comments CK (test code = 4862705126) 24 U/L 33-194 L Lab Interpretation (test code = Abnormal 01989-3) [facility]MINAL [id number] 21:01:09 Test Item Value Reference Range Interpretation Comments NT-proBNP (test code = 40749 pg/mL <=125 H 4411659239) BRAD (test code = BRAD) Biotin has been reported to cause a negative bias, interpret results relative to patient's use of biotin. Lab Interpretation (test Abnormal code = 91512-0) [facility] Resources[facility] [id number] 20:42:28 Test Item Value Reference Range Interpretation Comments TROPONIN I (test code = 0.054 ng/mL <=0.034 H 3443585172) BRAD (test code = BRAD) Reference (Normal) Range (defined by the 99th percentile reference limit): <= 0.034 ng/mL Note: Cardiac troponin begins to rise 3-4 hours after the onset of ischemia. Repeat in 4-6 hours if the sample was drawn within 3-4 hours of the onset of the symptom and found normal. Diagnosis of myocardial injury is made with acute changes in cTn concentrations with at least one serial sample above the 99th percentile upper reference limit (URL), taken together with the patient's clinical presentation. Biotin has been reported to cause a negative bias, interpret results relative to patient's use of biotin. Lab Interpretation Abnormal (test code = 24886-0) [facility]. METABOLIC PANEL (07260)2022-11-04 20:32:09 Test Item Value Reference Range Interpretation Comments NA (test code = 138 mmol/L 135-145 6065660885) K (test code = 3.0 mmol/L 3.5-5.0 L 9549719735) CL (test code = 106 mmol/L 98-108 7899261510) CO2 TOTAL (test code = 26 mmol/L 23-31 7042520511) AGAP (test code = 6 2-16 2834912906) BUN (test code = 18 mg/dL 7-23 7779205539) GLUCOSE (test code = 119 mg/dL 70-110 H 7892390265) CREATININE (test code = 2.18 mg/dL 0.50-1.04 H 8346150788) TOTAL BILI (test code = 0.6 mg/dL 0.1-1.8 2326411444) CALCIUM (test code = 9.2 mg/dL 8.6-10.6 4049333326) T PROTEIN (test code = 5.9 g/dL 6.3-8.2 L 2924027506) ALBUMIN (test code = 3.1 g/dL 3.5-5.0 L 2128938213) ALK PHOS (test code = 124 U/L 34-122 H 0904639978) ALTv (test code = 16 U/L 5-35 1742-6) AST(SGOT) (test code = 18 U/L 13-40 1221266159) eGFR (test code = 22.6 mL/min/1.73m2 7280782597) BRAD (test code = BRAD) Association of Glomerular Filtration Rate (GFR) and Staging of Kidney Disease* + --+ --+ ------+| GFR (mL/min/1.73 m2) ?| With Kidney Damage ?| ?Without Kidney Damage+ --------+ --------+ +| ?>90 ?| ?Stage one ?| ? Normal ?+ ---+ ---+ -------+| ?60-89 ?| ?Stage two ?| ? Decreased GFR ? + --+ --+ ------+| ?30-59 ?| ?Stage three ?| ? Stage three ? + --+ --+ ------+| ?15-29 ?| ?Stage four ? | ? Stage four ?+ ---+ ---+ -------+| ?<15 (or dialysis) ? ?| ?Stage five ? | ? Stage five ?+ ---+ ---+ -------+ *Each stage assumes the associated GFR level has been in effect for at least three months. ?Stages 1 to 5, with or without kidney disease, indicate chronic kidney disease. Notes: Determination of stages one and two (with eGFR >59mL/min/1.73 m2) requires estimation of kidney damage for at least three months as defined by structural or functional abnormalities of the kidney, manifested by either:Pathological abnormalities or Markers of kidney damage (including abnormalities in the composition of the blood or urine or abnormalities in imaging tests). Lab Interpretation Abnormal (test code = 50328-8) [facility]2023-04-29 20:32:09 Test Item Value Reference Range Interpretation Comments MAGNESIUM (test code = 8462900087) 2.1 mg/dL 1.7-2.4 Lab Interpretation (test code = Normal 98428-5) [facility]PH[facility]ORUS2023-04-29 20:31:49 Test Item Value Reference Range Interpretation Comments PHOSPHORUS (test code = 3275375268) 3.7 mg/dL 2.5-5.0 Lab Interpretation (test code = Normal 34637-1) [facility] WITH [id number] 20:19:25 Test Item Value Reference Range Interpretation Comments WBC (test code = 6.70 See_Comment [Automated 6690-2) message] The sy stem which generated this result transmitted reference range : 4.30 - 11.10 10*3/?L. The reference range was not used to interpret this result as normal/abnormal . RBC (test code = 3.05 See_Comment L [Automated 789-8) message] The sy stem which generated this result transmitted reference range : 3.93 - 5.25 10*6/?L. The reference range was not used to interpret this result as normal/abnormal . HGB (test code = 9.0 g/dL 11.6-15.0 L 718-7) HCT (test code = 28.9 % 35.7-45.2 L 4544-3) MCV (test code = 94.8 fL 80.6-95.5 787-2) MCH (test code = 29.5 pg 25.9-32.8 785-6) MCHC (test code = 31.1 g/dL 31.6-35.1 L 786-4) RDW-SD (test code = 57.7 fL 39.0-49.9 H 31104-2) RDW-CV (test code = 16.7 % 12.0-15.5 H 788-0) PLT (test code = 235 See_Comment [Automated 777-3) message] The sy stem which generated this result transmitted reference range : 166 - 358 10*3/ ?L. The reference r chikis was not used to interpret this result as normal/abnormal . MPV (test code = 9.2 fL 9.5-12.9 L 01715-3) NRBC/100 WBC (test 0.0 See_Comment [Automat ed code = 4064860562) message] The system which generated this result transmitted reference range : 0.0 - 10.0 /100 WBCs. The refer ence range was not u sed to interpret th is result as normal/abnormal . NRBC x10^3 (test code See_Comment [Auto mated = 8786200889) message] The s ystem which generated this result transmitted reference range : 10*3/?L. The reference range was not used to interpret this result as normal/abnormal . GRAN MAT (NEUT) % 74.2 % (test code = 770-8) IMM GRAN % (test code 0.30 % = 6330482707) LYMPH % (test code = 12.4 % 736-9) MONO % (test code = 9.1 % 5905-5) EOS % (test code = 3.6 % 713-8) BASO % (test code = 0.4 % 706-2) GRAN MAT x10^3(ANC) 4.97 10*3/uL 1.88-7.09 (test code = 6534058030) IMM GRAN x10^3 (test 0.00-0.06 code = 3540014888) LYMPH x10^3 (test code 0.83 10*3/uL 1.32-3.29 L = 731-0) MONO x10^3 (test code 0.61 10*3/uL 0.33-0.92 = 742-7) EOS x10^3 (test code = 0.24 10*3/uL 0.03-0.39 711-2) BASO x10^3 (test code 0.03 10*3/uL 0.01-0.07 = 704-7) Lab Interpretation Abnormal (test code = 60040-3) [facility] [id number] 15:54:00 Test Item Value Reference Range Interpretation Comments GLUCOSE BEDSIDE (test 122 MG/DL 70-110 H Perfor med by certified code = GLUBED) radiotelephone technical operator at [facility] GLUCOSE [id number] 12:13:00 Test Item Value Reference Range Interpretation Comments GLUCOSE BEDSIDE (test 156 MG/DL 70-110 H Perfor med by certified code = GLUBED) radiotelephone technical operator at [facility] GLUCOSE [id number] 10:42:00 Test Item Value Reference Range Interpretation Comments GLUCOSE BEDSIDE (test 181 MG/DL 70-110 H Perfor med by certified code = GLUBED) radiotelephone technical operator at [facility] GLUCOSE [id number] 20:05:00 Test Item Value Reference Range Interpretation Comments GLUCOSE BEDSIDE (test 90 MG/DL 70-110 N Perfor med by certified code = GLUBED) radiotelephone technical operator at [facility] GLUCOSE [id number] 15:46:00 Test Item Value Reference Range Interpretation Comments GLUCOSE BEDSIDE (test 212 MG/DL 70-110 H Perfor med by certified code = GLUBED) radiotelephone technical operator at [facility] GLUCOSE [id number] 12:44:00 Test Item Value Reference Range Interpretation Comments GLUCOSE BEDSIDE (test 120 MG/DL 70-110 H Perfor med by certified code = GLUBED) radiotelephone technical operator at [facility] BASIC METABOLIC [id number] 08:34:00 Test Item Value Reference Range Interpretation [...] for bhumika for GFRby the [facility] Kidney Foundati on for Adults.The GFR will not calculate if th e sex is unknown or if thepatient's ag e is <18 years. CREATININE (test 4.4 mg/dL 0.6-1.3 H code = CREAT) CALCIUM (test code = 9.5 mg/dL 8.0-10.5 N CA) [id number] 08:34:00 Test Item Value Reference Range Interpretation Comments PHOSPHOROUS (test code = PHOS) 2.3 MG/DL 2.5-4.9 L [id number] 08:34:00 Test Item Value Reference Range Interpretation Comments MAGNESIUM (test code = MAG) 2.18 mg/dL 1.80-2.40 N [id number] 08:29:00 Test Item Value Reference Range Interpretation Comments VANCOMYCIN (test code = VANCO) 20.2 mcg/mL CBC W/AUTO [id number] 08:27:00 Test Item Value Reference Range Interpretation [...] REQUIRED (test code NO = MDIFF) CALCIUM [id number] 08:20:00 Test Item Value Reference Range Interpretation Comments CALCIUM IONIZED (test code = AMILCAR) 1.21 MMOL/L 1.09-1.30 N GLUCOSE [id number] 05:39:00 Test Item Value Reference Range Interpretation Comments GLUCOSE BEDSIDE (test 175 MG/DL 70-110 H Perfor med by certified code = GLUBED) radiotelephone technical operator at [facility] GLUCOSE [id number] 20:49:00 Test Item Value Reference Range Interpretation Comments GLUCOSE BEDSIDE (test 167 MG/DL 70-110 H Perfor med by certified code = GLUBED) radiotelephone technical operator at [facility] GLUCOSE [id number] 17:03:00 Test Item Value Reference Range Interpretation Comments GLUCOSE BEDSIDE (test 127 MG/DL 70-110 H Perfor med by certified code = GLUBED) radiotelephone technical operator at [facility] GLUCOSE [id number] 11:54:00 Test Item Value Reference Range Interpretation Comments GLUCOSE BEDSIDE (test 177 MG/DL 70-110 H Perfor med by certified code = GLUBED) radiotelephone technical operator at [facility] GLUCOSE [id number] 06:39:00 Test Item Value Reference Range Interpretation Comments GLUCOSE BEDSIDE (test 153 MG/DL 70-110 H Perfor med by certified code = GLUBED) radiotelephone technical operator at [facility] GLUCOSE [id number] 19:51:00 Test Item Value Reference Range Interpretation Comments GLUCOSE BEDSIDE (test 165 MG/DL 70-110 H Perfor med by certified code = GLUBED) radiotelephone technical operator at [facility] GLUCOSE [id number] 17:15:00 Test Item Value Reference Range Interpretation Comments GLUCOSE BEDSIDE (test 188 MG/DL 70-110 H Perfor med by certified code = GLUBED) radiotelephone technical operator at [facility] GLUCOSE [id number] 12:16:00 Test Item Value Reference Range Interpretation Comments GLUCOSE BEDSIDE (test 132 MG/DL 70-110 H Perfor med by certified code = GLUBED) radiotelephone technical operator at [facility] GLUCOSE [id number] 10:20:00 Test Item Value Reference Range Interpretation Comments GLUCOSE BEDSIDE (test 131 MG/DL 70-110 H Perfor med by certified code = GLUBED) radiotelephone technical operator at [facility] CBC W/AUTO [id number] 08:33:00 Test Item Value Reference Range Interpretation [...] (test code NO = MDIFF) BASIC METABOLIC [id number] 07:37:00 Test Item Value Reference Range Interpretation [...] for bhumika for GFRby the [facility] Kidney Foundati on for Adults.The GFR will not calculate if th e sex is unknown or if thepatient's ag e is <18 years. CREATININE (test 5.1 mg/dL 0.6-1.3 H code = CREAT) CALCIUM (test code = 10.1 mg/dL 8.0-10.5 N CA) [id number] 07:37:00 Test Item Value Reference Range Interpretation Comments PHOSPHOROUS (test code = PHOS) 3.4 MG/DL 2.5-4.9 N [id number] 07:37:00 Test Item Value Reference Range Interpretation Comments MAGNESIUM (test code = MAG) 2.31 mg/dL 1.80-2.40 [id number] 06:49:00 Test Item Value Reference Range Interpretation Comments VANCOMYCIN (test code = VANCO) 19.9 mcg/mL GLUCOSE [id number] 06:17:00 Test Item Value Reference Range Interpretation Comments GLUCOSE BEDSIDE (test 173 MG/DL 70-110 H Perfor med by certified code = GLUBED) radiotelephone technical operator at [facility] - [place] BONE 3 [id number] 00:00:00 [facility] : 1955 Sex: F FAX: Delmy Howell [phone] [place]: St: ADM FAX: Kasey Ochoa MD [phone] FAX: Jim Mazariegos MD [phone] FAX: Adonis Canchola MD [phone] Name: JENN MOTTA [facility] : 1955 Age/S: 67/F [address] [place], [place] [address] Unit #: [id number] Loc: G.4404 [place] [address] Phys: Kasey Mendez MD Acct: [id number] Dis Date: Status: ADM IN PHONE #: [phone] Exam Date: 022 1506 FAX #: [phone] Reason: left foot ulcers EXAMS: CPT CODE: [id number] NM BONE 3 PHASE 11611 PROCEDURE INFORMATION: Exam: NM Bone and/or Joint, [...] demonstrates slight increased flow to the left footcompared to the right. The only plain radiographs [...] 1 Signed Report (CONTINUED) FAX: Delmy Howell [phone] [place]: St: ADM FAX: Kasey Ochoa MD [phone] FAX: Jim Mazariegos MD [phone] FAX: Adonis Canchola MD [phone] Name: JENN MOTTA [facility] : 1955 Age/S: 67/F [address] [place] [address] Unit #: [id number] Loc: [facility] [place] [address] Phys: Kasey Mendez MD Acct: [id number] Dis Date: Status: ADM IN PHONE #: [phone] ExamDate: 07/04/2022 1506 FAX #: [phone] Reason: left foot ulcers EXAMS: CPT CODE: [id number] NM BONE 3 PHASE 40137 (Continued) noted on the left foot plain radiographs. at 1850 Reported and signed by: Gus Moura M.D. CC: Delmy Ashton MD; Kasey Mendez MD; Jim Dhillon MD; Adonis Gaytan MD Technologist: Emilia Cobb, ARRT (N)(CT); ... Trnscrd Date/Time/By: 07/04/2022 (1849) : By: [email or web address] Orig Print D/T: S: 07/04/2022 (1849) PAGE 2 Signed ReportGLUCOSE [id number] 20:34:00 Test Item Value Reference Range Interpretation Comments GLUCOSE BEDSIDE (test 167 MG/DL 70-110 H Perfor med by certified code = GLUBED) radiotelephone technical operator at [facility] GLUCOSE [id number] 15:58:00 Test Item Value Reference Range Interpretation Comments GLUCOSE BEDSIDE (test 131 MG/DL 70-110 H Perfor med by certified code = GLUBED) radiotelephone technical operator at [facility] GLUCOSE [id number] 11:38:00 Test Item Value Reference Range Interpretation Comments GLUCOSE BEDSIDE (test 202 MG/DL 70-110 H Perfor med by certified code = GLUBED) radiotelephone technical operator at [facility] BASIC METABOLIC [id number] 08:17:00 Test Item Value Reference Range Interpretation [...] 9.2 mg/dL 8.0-10.5 N CA) CBC W/AUTO [id number] 07:54:00 Test Item Value Reference Range Interpretation [...] REQUIRED (test code NO = MDIFF) GLUCOSE [id number] 05:40:00 Test Item Value Reference Range Interpretation Comments GLUCOSE BEDSIDE (test 170 MG/DL 70-110 H Perfor med by certified code = GLUBED) radiotelephone technical operator at [facility] GLUCOSE [id number] 19:15:00 Test Item Value Reference Range Interpretation Comments GLUCOSE BEDSIDE (test 154 MG/DL 70-110 H Perfor med by certified code = GLUBED) radiotelephone technical operator at [facility] GLUCOSE [id number] 17:40:00 Test Item Value Reference Range Interpretation Comments GLUCOSE BEDSIDE (test 134 MG/DL 70-110 H Perfor med by certified code = GLUBED) radiotelephone technical operator at [facility] GLUCOSE [id number] 11:39:00 Test Item Value Reference Range Interpretation Comments GLUCOSE BEDSIDE (test 156 MG/DL 70-110 H Perfor med by certified code = GLUBED) radiotelephone technical operator at [facility] GLUCOSE [id number] 08:37:00 Test Item Value Reference Range Interpretation Comments GLUCOSE BEDSIDE (test 222 MG/DL 70-110 H Perfor med by certified code = GLUBED) radiotelephone technical operator at [facility] BASIC METABOLIC [id number] 06:58:00 Test Item Value Reference Range Interpretation [...] the recommended for bhumika for GFRby the [facility] for Adults.The GFR will not calculate if th e sex is unknown or if thepatient's ag e is <18 years. CREATININE (test 3.4 mg/dL 0.6-1.3 H code = CREAT) CALCIUM (test code = 9.0 mg/dL 8.0-10.5 N CA) [id number] 06:58:00 Test Item Value Reference Range Interpretation Comments PHOSPHOROUS (test code = PHOS) 3.0 MG/DL 2.5-4.9 [id number] 06:58:00 Test Item Value Reference Range Interpretation Comments MAGNESIUM (test code = MAG) 1.89 mg/dL 1.80-2.40 N CALCIUM [id number] 06:58:00 Test Item Value Reference Range Interpretation Comments CALCIUM IONIZED (test code = AMILCAR) 1.11 MMOL/L 1.09-1.30 N CBC W/AUTO [id number] 06:47:00 Test Item Value Reference Range Interpretation [...] REQUIRED (test code NO = MDIFF) GLUCOSE [id number] 21:27:00 Test Item Value Reference Range Interpretation Comments GLUCOSE BEDSIDE (test 224 MG/DL 70-110 H Perfor med by certified code = GLUBED) radiotelephone technical operator at [facility] GLUCOSE [id number] 16:50:00 Test Item Value Reference Range Interpretation Comments GLUCOSE BEDSIDE (test 174 MG/DL 70-110 H Perfor med by certified code = GLUBED) radiotelephone technical operator at [facility] BASIC METABOLIC [id number] 15:03:00 Test Item Value Reference Range Interpretation [...] the recommended for bhumika for GFRby the [facility] for Adults.The GFR will not calculate if th e sex is unknown or if thepatient's ag e is <18 years. CREATININE (test 5.0 mg/dL 0.6-1.3 H code = CREAT) CALCIUM (test code = 9.1 mg/dL 8.0-10.5 N CA) POC ARTERIAL BLOOD [id number] 14:28:00 Test Item Value Reference Range Interpretation Comments POC ARTERIAL BLOOD GAS PH (test 7.343 7.35-7.45 L code = POCPHA) POC ARTERIAL BLOOD GAS PCO2 (test 47.7 mmHg 35.0-45 H code = KPEUMG5D) POC TCO2 ARTERIAL (test code = 27.4 POCTCO2) POC ARTERIAL BLOOD GAS PO2 (test 105.9 mmHg 80-100.0 H code = ZRILH5Z) POC HCO3 ARTERIAL (test code = 25.9 MMOL/L 22.0-26.0 N OXYLCW8L) POC BASE EXCESS (test code = 0.2 MMOL/L -4.0-4.0 N POCBEA) POC O2 SATURATION (test code = 97.7 % 90-100 N POCO2S) BASIC METABOLIC [id number] 14:28:00 Test Item Value Reference Range Interpretation [...] = POCGLU) 188 MG/DL 70-110 H HEMOGLOBIN [id number] 14:28:00 Test Item Value Reference Range Interpretation Comments HEMOGLOBIN ABG (test code = 10.0 G/DL 11.0-15.0 L HGB/ABG) [id number] 14:28:00 Test Item Value Reference Range Interpretation Comments HEMATOCRIT (test code = HCT/ABG) 29 % 33.0-45.0 L POC LACTIC [id number] 14:28:00 Test Item Value Reference Range Interpretation Comments POC LACTIC ACID (test code = 1.3 mmol/l 0.9-1.7 N POCLAC) GLUCOSE [id number] 14:10:00 Test Item Value Reference Range Interpretation Comments GLUCOSE BEDSIDE (test 182 MG/DL 70-110 H Perfor med by certified code = GLUBED) radiotelephone technical operator at [facility] GLUCOSE [id number] 10:38:00 Test Item Value Reference Range Interpretation Comments GLUCOSE BEDSIDE (test 251 MG/DL 70-110 H Perfor med by certified code = GLUBED) radiotelephone technical operator at [facility] [id number] 08:07:00 Test Item Value Reference Range Interpretation Comments VANCOMYCIN (test code = VANCO) 22.4 mcg/mL COMMENTS: 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 CREATININE (test 4.7 mg/dL 0.6-1.3 H code = CREAT) CALCIUM (test code = 9.7 mg/dL 8.0-10.5 N CA) [id number] 07:58:00 Test Item Value Reference Range Interpretation Comments PHOSPHOROUS (test code = PHOS) 4.6 MG/DL 2.5-4.9 N [id number] 07:58:00 Test Item Value Reference Range Interpretation Comments MAGNESIUM (test code = MAG) 2.20 mg/dL 1.80-2.40 N CBC W/AUTO [id number] 07:39:00 Test Item Value Reference Range Interpretation [...] MANUAL DIFF REQUIRED (test code NO = SONALI) GLUCOSE [id number] 05:20:00 Test Item Value Reference Range Interpretation Comments GLUCOSE BEDSIDE (test 148 MG/DL 70-110 H Perfor med by certified code = GLUBED) radiotelephone technical operator at [facility] - XR CHEST 1 [id number] 00:00:00 [facility] 1955 Sex: F FAX: Delmy Howell [phone] [place]: St: ADM FAX: Serge Shetty MD FAX: Jim Mazariegos MD [phone] FAX: Adonis Canchola MD [phone] Name: JENN MOTTA [facility] : 1955 Age/S: 67/F [address] [place] [address] Blvd Unit #: [id number] Loc: G.3307 [place] [address] Phys: Serge Shetty MD Acct: [id number] Dis Date: Status: ADM IN PHONE #: [phone] Exam Date: 07/01/2022 1537 FAX #: [phone] Reason: hypoxia EXAMS: CPT CODE: [id number] XR CHEST 1 V 63327 PROCEDURE INFORMATION: Exam: XR Chest Exam date [...] Tortuous aorta with calcifications at the arch. Bones/sadaf nts: Cervical spine fusion hardware. Degenerative changes within [...] (1740) PAGE 1 Signed Report- US PELVIS [id number] 00:00:00 [facility] : 1955 Sex: F Name: JENN MOT[facility] Shoshana Hernandez : 1955 Age/S: 67 / F [address] [place] [address] Unit #: [id number] Loc: [place] [address] Phys: Adonis Gaytan MD Acct: [id number] Dis Date: Status: ADM IN PHONE #: [phone] Exam Date: 07/01/2022 1406 FAX #: [phone] Reason: DUB...2 weeks of bleeding after 15 years of men EXAMS: CPT CODE: [id number] US PELVIS COMPLETE 08924 PROCEDURE INFORMATION: Exam: US Pelvis Complete, Transabdominal [...] Karol Quinn RDMS(AB)(OB) Trnscb Date/Time: 07/01/2022 (1433) DanieTTV Orig Print D/T: S: 07/01/2022 (6274)Probe: PAGE 1 Signed Report- US TRANSVAGINAL NON [id number] [facility]00[facility] : 1955 Sex: F Name: JENN MOTTA [facility] : 1955 Age/S: 67 / F [address] [place] [address] Unit #: [id number] Loc: [place] [address] Phys: Adonis Gaytan MD Acct: [id number] Dis Date: Status: ADM IN PHONE #: [phone] Exam Date: 07/01/2022 1407 FAX #: [phone] Reason: see US Pelvic Non OB Complete EXAMS: CPT CODE: [id number] [place] [id number] PROCEDURE INFORMATION: Exam: US Pelvis Complete, Transabdominal and US Pelvis, Transvaginal Exam date and time: 07/01/2022 1:27 PM Age: 67 years old Clinical indication: Other: Post menopausal bleeding; Additional info: Dub. . () TECHNIQUE: Imaging protocol: Real-time complete transabdominal and transvaginal pelvic ultrasound with image docu mentation. Transvaginal imaging was used for better evaluation [...] can be obtained. 2. Fluid in the endocervicalcanal of uncertain etiology, may be related to history of bleeding. 3. Ovaries not visualized. at 1433 Reported and signed by: Vladimir Moran M.D. CC: Delmy Ashton MD; Jim Dhillon MD; Adonis Gaytan MD Technologist: Karol Quinn RDMS(AB)(OB) Trnscb Date/Time: 07/01/2022 (1433) DanieTTV Orig Print D/T: S: 07/01/2022 (1434) Probe: [id number] PAGE 1 Signed ReportGLUCOSE [id number] 19:48:00 Test Item Value Reference Range Interpretation Comments GLUCOSE BEDSIDE (test 143 MG/DL 70-110 H Perfor med by certified code = GLUBED) radiotelephone technical operator at [facility] GLUCOSE [id number] 18:11:00 Test Item Value Reference Range Interpretation Comments GLUCOSE BEDSIDE (test 152 MG/DL 70-110 H Perfor med by certified code = GLUBED) radiotelephone technical operator at [facility] GLUCOSE [id number] 13:24:00 Test Item Value Reference Range Interpretation Comments GLUCOSE BEDSIDE (test 120 MG/DL 70-110 H Perfor med by certified code = GLUBED) radiotelephone technical operator at [facility] BASIC METABOLIC [id number] 09:03:00 Test Item Value Reference Range Interpretation [...] 9.6 mg/dL 8.0-10.5 N CA) CBC W/AUTO [id number] 07:48:00 Test Item Value Reference Range Interpretation [...] REQUIRED (test NO code = MDIFF) GLUCOSE [id number] 20:09:00 Test Item Value Reference Range Interpretation Comments GLUCOSE BEDSIDE (test 172 MG/DL 70-110 H Perfor med by certified code = GLUBED) radiotelephone technical operator at [facility] GLUCOSE [id number] 15:48:00 Test Item Value Reference Range Interpretation Comments GLUCOSE BEDSIDE (test 108 MG/DL 70-110 N Perfor med by certified code = GLUBED) radiotelephone technical operator at [facility] GLUCOSE [id number] 11:35:00 Test Item Value Reference Range Interpretation Comments GLUCOSE BEDSIDE (test 172 MG/DL 70-110 H Perfor med by certified code = GLUBED) radiotelephone technical operator at [facility] GLUCOSE [id number] 08:25:00 Test Item Value Reference Range Interpretation Comments GLUCOSE BEDSIDE (test 186 MG/DL 70-110 H Perfor med by certified code = GLUBED) radiotelephone technical operator at [facility] BASIC METABOLIC [id number] 07:50:00 Test Item Value Reference Range Interpretation [...] the recommended for bhumika for GFRby the [facility] for Adults.The GFR will not calculate if th e sex is unknown or if thepatient's ag e is <18 years. CREATININE (test 4.8 mg/dL 0.6-1.3 H code = CREAT) CALCIUM (test code = 9.3 mg/dL 8.0-10.5 N CA) [id number] 07:50:00 Test Item Value Reference Range Interpretation Comments PHOSPHOROUS (test code = PHOS) 5.5 MG/DL 2.5-4.9 H [id number] 07:50:00 Test Item Value Reference Range Interpretation Comments MAGNESIUM (test code = MAG) 2.32 mg/dL 1.80-2.40 N CBC W/AUTO [id number] 07:28:00 Test Item Value Reference Range Interpretation [...] REQUIRED (test code NO = MDIFF) GLUCOSE [id number] 19:59:00 Test Item Value Reference Range Interpretation Comments GLUCOSE BEDSIDE (test 141 MG/DL 70-110 H Perfor med by certified code = GLUBED) radiotelephone technical operator at [facility] GLUCOSE [id number] 18:58:00 Test Item Value Reference Range Interpretation Comments GLUCOSE BEDSIDE (test 156 MG/DL 70-110 H Perfor med by certified code = GLUBED) radiotelephone technical operator at [facility] GLUCOSE [id number] 11:35:00 Test Item Value Reference Range Interpretation Comments GLUCOSE BEDSIDE (test 112 MG/DL 70-110 H Perfor med by certified code = GLUBED) radiotelephone technical operator at [facility] GLUCOSE [id number] 09:19:00 Test Item Value Reference Range Interpretation Comments GLUCOSE BEDSIDE (test 167 MG/DL 70-110 H Perfor med by certified code = GLUBED) radiotelephone technical operator at [facility] BASIC METABOLIC [id number] 08:14:00 Test Item Value Reference Range Interpretation [...] 9.1 mg/dL 8.0-10.5 N CA) BASIC METABOLIC [id number] 06:43:00 Test Item Value Reference Range Interpretation [...] be done morning of Heart CathCBC W/AUTO [id number] 06:23:00 Test Item Value Reference Range Interpretation [...] To be done morning of Heart CathGLUCOSE [id number] 21:04:00 Test Item Value Reference Range Interpretation Comments GLUCOSE BEDSIDE (test 99 MG/DL 70-110 N Perfor med by certified code = GLUBED) radiotelephone technical operator at [facility] GLUCOSE [id number] 16:53:00 Test Item Value Reference Range Interpretation Comments GLUCOSE BEDSIDE (test 147 MG/DL 70-110 H Perfor med by certified code = GLUBED) radiotelephone technical operator at [facility] GLUCOSE [id number] 15:43:00 Test Item Value Reference Range Interpretation Comments GLUCOSE BEDSIDE (test 154 MG/DL 70-110 H Perfor med by certified code = GLUBED) radiotelephone technical operator at [facility] [id number] 14:34:00 Test Item Value Reference Range Interpretation Comments ACT-ISTAT (test code 281 SEC 74-137 H Perform ed by certified = ACTI) radiotelephone technical operator at [facility] [id number] 08:42:00 Test Item Value Reference Range Interpretation Comments HGBA1C% (test code = HGBA1C%) 5.8 %A1C 4.8-6.0 N GLUCOSE [id number] 08:37:00 Test Item Value Reference Range Interpretation Comments GLUCOSE BEDSIDE (test 171 MG/DL 70-110 H Perfor med by certified code = GLUBED) radiotelephone technical operator at [facility] CBC W/AUTO [id number] 08:24:00 Test Item Value Reference Range Interpretation [...] (test code NO = MDIFF) BASIC METABOLIC [id number] 07:56:00 Test Item Value Reference Range Interpretation [...] 9.4 mg/dL 8.0-10.5 N CA) COAGULATION TIME [id number] 07:05:00 Test Item Value Reference Range Interpretation Comments COAGULATION TIME 245 SECONDS Performed b y ACTIVATED (test code = certi fied radiotelephone technical operator ACT) at [facility] COAGULATION TIME [id number] 07:05:00 Test Item Value Reference Range Interpretation Comments COAGULATION TIME 234 SECONDS Performed b y ACTIVATED (test code = certi fied radiotelephone technical operator ACT) at [facility] GLUCOSE [id number] 06:07:00 Test Item Value Reference Range Interpretation Comments GLUCOSE BEDSIDE (test 170 MG/DL 70-110 H Perfor med by certified code = GLUBED) radiotelephone technical operator at [facility] GLUCOSE [id number] 19:40:00 Test Item Value Reference Range Interpretation Comments GLUCOSE BEDSIDE (test 143 MG/DL 70-110 H Perfor med by certified code = GLUBED) radiotelephone technical operator at [facility] [id number] 17:22:00 Test Item Value Reference Range Interpretation Comments ACT-ISTAT (test code 275 SEC 74-137 H Perform ed by certified = ACTI) radiotelephone technical operator at [facility] [id number] 16:11:00 Test Item Value Reference Range Interpretation Comments ACT-ISTAT (test code 251 SEC 74-137 H Perform ed by certified = ACTI) radiotelephone technical operator at [facility] GLUCOSE [id number] 14:10:00 Test Item Value Reference Range Interpretation Comments GLUCOSE BEDSIDE (test 192 MG/DL 70-110 H Perfor med by certified code = GLUBED) radiotelephone technical operator at [facility] GLUCOSE [id number] 11:52:00 Test Item Value Reference Range Interpretation Comments GLUCOSE BEDSIDE (test 215 MG/DL 70-110 H Perfor med by certified code = GLUBED) radiotelephone technical operator at [facility] COVID 19 Asymptomatic IH [id number] 10:33:00 Test Item Value Reference Range Interpretation Comments COVID 19 Asymptomatic Negative Negative A nega tive result is IH AG (test code = presumpti ve and should COVNONPUIAG) be confirmedwit h an FDA authorized mole cular assay, if neces lisa forpatient asmita gement.A positive result does not rule out co-inf ections withother patho gens.This test detects kevin viable (live) and non-viable,SARS -CoV, and SARS-CoV-2. [...] moderate, high or waivedcomplexit y tests. GLUCOSE [id number] 08:19:00 Test Item Value Reference Range Interpretation Comments GLUCOSE BEDSIDE (test 220 MG/DL 70-110 H Perfor med by certified code = GLUBED) radiotelephone technical operator at [facility] COMPREHENSIVE METABOLIC [id number] 07:53:00 Test Item Value Reference Range Interpretation [...] the recommended for bhumika for GFRby the [facility] Foundati on for Adults.The GFR [...] 20-125 H TOTAL (test code = ALKP) [id number] 07:53:00 Test Item Value Reference Range Interpretation Comments PHOSPHOROUS (test code = PHOS) 6.8 MG/DL 2.5-4.9 H [id number] 07:53:00 Test Item Value Reference Range Interpretation Comments MAGNESIUM (test code = MAG) 2.24 mg/dL 1.80-2.40 GLUCOSE [id number] 06:28:00 Test Item Value Reference Range Interpretation Comments GLUCOSE BEDSIDE (test 214 MG/DL 70-110 H Perfor med by certified code = GLUBED) radiotelephone technical operator at [facility] CBC W/AUTO [id number] 05:40:00 Test Item Value Reference Range Interpretation [...] To be done morning of Heart CathRBC [id number] 05:40:00 Test Item Value Reference Range Interpretation Comments ANISOCYTOSIS (test code = ANISO) SLIGHT MACROCYTOSIS (test code = MACR) FEW COMMENTS: To be done morning of Heart Cath- XR FOOT 3 + V [id number] 00:00:00 [facility] : 1955 Sex: F FAX: Delmy Howell [phone] [place]: St: ADM FAX: Sybil Marques MD [phone] FAX:Jim Mazariegos MD [phone] Name: JENN MOTTA [facility] Shoshana Hernandez : 1955 Age/S: 67/F [address] [place] [address] Unit #: [id number] Loc: G.4421 [place] [address] Phys: Sybil Byers MD Acct: [id number] Dis Date: Status: ADM IN PHONE #: [phone] Exam Date: 06/25/2022 1610 FAX #: [phone] Reason: L foot ulcers EXAMS: CPT CODE: [id number] XR FOOT 3 + [place] [id number] PROCEDURE INFORMATION: Exam: XR Left Foot Exam [...] CC: Delmy Ashton MD; Sybil Byers MD; Sarmad Dhillon MD Technologist: Sharmaine Lowry RT(R) Trnscrd Date/Time/By: 06/26/2022 (841) : By: [email or web address] Orig Print D/T: S: 06/26/2022 (841) PAGE 1 Signed ReportGLUCOSE [id number] 19:44:00 Test Item Value Reference Range Interpretation Comments GLUCOSE BEDSIDE (test 198 MG/DL 70-110 H Perfor med by certified code = GLUBED) radiotelephone technical operator at [facility] GLUCOSE [id number] 16:13:00 Test Item Value Reference Range Interpretation Comments GLUCOSE BEDSIDE (test 189 MG/DL 70-110 H Perfor med by certified code = GLUBED) radiotelephone technical operator at [facility] GLUCOSE [id number] 11:12:00 Test Item Value Reference Range Interpretation Comments GLUCOSE BEDSIDE (test 186 MG/DL 70-110 H Perfor med by certified code = GLUBED) radiotelephone technical operator at [facility] CBC W/AUTO [id number] 10:49:00 Test Item Value Reference Range Interpretation [...] MDIFF) COMMENTS: Daily while on HeparinCOMPREHENSIVE METABOLIC [id number] 07:37:00 Test Item Value Reference Range Interpretation [...] the recommended for bhumika for GFRby the [facility] Found[facility] on for Adults.The GFR [...] H TOTAL (test code = ALKP) GLUCOSE [id number] 05:53:00 Test Item Value Reference Range Interpretation Comments GLUCOSE BEDSIDE (test 159 MG/DL 70-110 H Perfor med by certified code = GLUBED) radiotelephone technical operator at [facility] GLUCOSE [id number] 19:09:00 Test Item Value Reference Range Interpretation Comments GLUCOSE BEDSIDE (test 171 MG/DL 70-110 H Perfor med by certified code = GLUBED) radiotelephone technical operator at [facility] GLUCOSE [id number] 15:56:00 Test Item Value Reference Range Interpretation Comments GLUCOSE BEDSIDE (test 159 MG/DL 70-110 H Perfor med by certified code = GLUBED) radiotelephone technical operator at [facility] GLUCOSE [id number] 12:56:00 Test Item Value Reference Range Interpretation Comments GLUCOSE BEDSIDE (test 110 MG/DL 70-110 N Perfor med by certified code = GLUBED) radiotelephone technical operator at [facility] ACUTE HEPATITIS [id number] 12:08:00 Test Item Value Reference Range Interpretation Comments AB HEPATITIS A IGM (test NON REACTIVE INDEX NON REACT. code = HAVMAB) AG HEPATITIS B SURFACE NON REACTIVE INDEX NonReactive (test code = HBSAG) AB HEPATITIS B CORE IGM NON REACTIVE INDEX NON REACT. (test code = HBCMAB) AB HEPATITIS C (test code NON REACTIVE INDEX NON REACT. = HCVAB) AB HEPATITIS B [id number] 12:08:00 Test Item Value Reference Range Interpretation Comments AB HEPATITIS B 11.7 mIU/mL See_Comment Verified by repeat SURFACE (test code = analysi s Status of HBSAB) Immunity Anti-H Bs Level --- I nconsis tent with Immun ity 0.0 - 9.9Consistent with Immunity >9.9Pe rformed At: [facility] [address] [place], [place] [id number] Kyle L MD Ph:[phone] [Automated mess age] The system [employer] generated this result transmitted ref erence range: Immunity >9.9. The reference r chikis was not used to interpret this result as normal/abnor mal. BASIC METABOLIC [id number] 08:08:00 Test Item Value Reference Range Interpretation [...] the recommended for bhumika for GFRby the [facility] on for Adults.The GFR will not calculate if th e sex is unknown or if thepatient's ag e is <18 years. CREATININE (test 5.8 mg/dL 0.6-1.3 H code = CREAT) CALCIUM (test code = 9.9 mg/dL 8.0-10.5 N CA) [id number] 08:08:00 Test Item Value Reference Range Interpretation Comments PHOSPHOROUS (test code = PHOS) 7.1 MG/DL 2.5-4.9 H [id number] 08:08:00 Test Item Value Reference Range Interpretation Comments MAGNESIUM (test code = MAG) 2.64 mg/dL 1.80-2.40 H CBC W/AUTO [id number] 07:09:00 Test Item Value Reference Range Interpretation [...] = MDIFF) COMMENTS: Daily while on HeparinGLUCOSE [id number] 05:45:00 Test Item Value Reference Range Interpretation Comments GLUCOSE BEDSIDE (test 190 MG/DL 70-110 H Perfor med by certified code = GLUBED) radiotelephone technical operator at [facility] GLUCOSE [id number] 19:34:00 Test Item Value Reference Range Interpretation Comments GLUCOSE BEDSIDE (test 159 MG/DL 70-110 H Perfor med by certified code = GLUBED) radiotelephone technical operator at [facility] GLUCOSE [id number] 17:04:00 Test Item Value Reference Range Interpretation Comments GLUCOSE BEDSIDE (test 167 MG/DL 70-110 H Perfor med by certified code = GLUBED) radiotelephone technical operator at [facility] UA RFLX MICR CULT IF [id number] 16:38:00 Test Item Value Reference Range Interpretation [...] for culture: Gross HematuriaSpecimen Description: CLEAN CATCHGLUCOSE [id number] 12:14:00 Test Item Value Reference Range Interpretation Comments GLUCOSE BEDSIDE (test 147 MG/DL 70-110 H Perfor med by certified code = GLUBED) radiotelephone technical operator at [facility] THROMBOPLASTIN TIME [id number] 11:46:00 Test Item Value Reference Range Interpretation Comments THROMBOPLASTIN TIME 72.0 Seconds 25.0-39.5 H Therape utic Range: PARTIAL (test code = 50.4 - 88.3 Seconds PTT) Effective 10/22/2018 GLUCOSE [id number] 06:01:00 Test Item Value Reference Range Interpretation Comments GLUCOSE BEDSIDE (test 246 MG/DL 70-110 H Perfor med by certified code = GLUBED) radiotelephone technical operator at [facility] THROMBOPLASTIN TIME [id number] 05:17:00 Test Item Value Reference Range Interpretation Comments THROMBOPLASTIN TIME 53.5 Seconds 25.0-39.5 H Therape utic Range: PARTIAL (test code = 50.4 - 88.3 Seconds PTT) Effective 10/22/2018 CBC W/AUTO [id number] 04:16:00 Test Item Value Reference Range Interpretation [...] Daily while on Heparin- CT CHEST W/O [id number] 00:00:00 [facility] 1955 Sex: F Name: JENN MOTTA [facility] : 1955 Age/S: 67 / F [address] [place] [address] Unit #: [id number] Loc: [place] [address] Phys: Aleja Funk Acct: [id number] Dis Date: Status: ADM IN PHONE #: [phone] Exam Date: 06/22/2022 0955 FAX #: [phone] Reason: Dyspnea, CAD EXAMS: CPT CODE: [id number] CT CHEST W/O CONTRAST 55159 PROCEDURE INFORMATION: Exam: CT Chest Without Contrast;Diagnostic [...] is diffuse body wall edema. PAGE 1 SignedReport (CONTINUED) Name: JENN MOTTA [facility] Shoshana Hernandez : 1955 Age/S: 67 / F [address] [place] [address] Unit #: [id number] Loc: [place] [address] Phys: Aleja Funk Acct: [id number] Dis Date: Status: ADM IN PHONE #: [phone] Exam Date: 06/22/2022 09 FAX #: [phone] Reason: Dyspnea, CAD EXAMS: CPT CODE: [id number] CT CHEST W/O CONTRAST 81868 (Continued) 4. There is a small pericardial effusion, slightly increased in size compared to prior study. 5. There is a small amount of ascites in the visualized abdomen. at 0904 Reported and signed by: Jim Uriostegui M.D. CC: Delmy Ashton MD; Jim Dhillon MD; Aleja OROZCO Technologist:RT Hailey(R)(CT) CTDI: DLP: Trnscb Date/Time:06/23/2022 (903) [email or web address] Orig Print D/T: S: 06/23/2022 (903) PAGE 2 Signed Report GLUCOSE [id number] 22:01:00 Test Item Value Reference Range Interpretation Comments GLUCOSE BEDSIDE (test 186 MG/DL 70-110 H Perfor med by certified code = GLUBED) radiotelephone technical operator at [facility] THROMBOPLASTIN TIME [id number] 21:11:00 Test Item Value Reference Range Interpretation Comments THROMBOPLASTIN TIME 51.2 Seconds 25.0-39.5 H Therape utic Range: PARTIAL (test code = 50.4 - 88.3 Seconds PTT) Effective 10/22/2018 GLUCOSE [id number] 18:42:00 Test Item Value Reference Range Interpretation Comments GLUCOSE BEDSIDE (test 125 MG/DL 70-110 H Perfor med by certified code = GLUBED) radiotelephone technical operator at [facility] THROMBOPLASTIN TIME [id number] 13:02:00 Test Item Value Reference Range Interpretation Comments THROMBOPLASTIN TIME 40.0 Seconds 25.0-39.5 H Therape utic Range: PARTIAL (test code = 50.4 - 88.3 Seconds PTT) Effective 10/22/2018 PTH INTACT [id number] 12:41:00 Test Item Value Reference Range Interpretation Comments PARATHYROID HORMONE INTACT (test 661.2 pg/mL 14.0-72.0 H code = PARAI) B-TYPE NATRIURETIC [id number] 12:23:00 Test Item Value Reference Range Interpretation Comments B-TYPE NATRIURETIC PEPTIDE (test 557.0 PG/ML 0-100 H code = BNP) PROTHROMBIN [id number] 12:06:00 Test Item Value Reference Range Interpretation Comments PROTHROMBIN TIME 14.9 SECONDS 9.3-12.9 H PATIENT (test code = PTP) INTERNATIONAL NORMAL 1.3 0.8-1.2 H TARGET INR BY RATIO (test code = INDICATIO N Indication INR) INR1. Prophylax is of venous thrombos is 2.0 - 3.0 (orthoped ic surgery), Proph ylaxis of venous thro mbosis (other than hig h-risk surgery), Treat ment [...] (to prevent recurrent infar ct). BASIC METABOLIC [id number] 12:04:00 Test Item Value Reference Range Interpretation [...] the recommended for bhumika for GFRby the [facility] Kidney Foundati on for Adults.The GFR will not calculate if th e sex is unknown or if thepatient's ag e is <18 years. CREATININE (test 7.0 mg/dL 0.6-1.3 H code = CREAT) CALCIUM (test code = 9.4 mg/dL 8.0-10.5 N CA) CBC W/AUTO [id number] 11:56:00 Test Item Value Reference Range Interpretation [...] REQUIRED (test NO code = MDIFF) GLUCOSE [id number] 05:45:00 Test Item Value Reference Range Interpretation Comments GLUCOSE BEDSIDE (test 214 MG/DL 70-110 H Perfor med by certified code = GLUBED) radiotelephone technical operator at [facility] THROMBOPLASTIN TIME [id number] 01:28:00 Test Item Value Reference Range Interpretation Comments THROMBOPLASTIN TIME 30.3 Seconds 25.0-39.5 N Therape utic Range: PARTIAL (test code = 50.4 - 88.3 Seconds PTT) Effective 10/22/2018 COMMENTS: DRAW PTT 6 HOURS AFTER INITIATION OF HEPARIN- DUP VEIN [id number] 00:00:00[facility]: JENN MOTTA : 1955 Sex: F Name: JENN MOTTA [facility] Vaughan : 1955 Age/S: 67 / F [address] Unit #: [id number] Loc: [place] [address] Phys: Aleja Funk Acct: [id number] Dis Date: Status: ADM IN PHONE #: [phone] Exam Date: 06/22/2022 1510 FAX #: [phone] Reason: Vein mapping for CABGEXAMS: CPT CODE: [id number] DUP VEIN YEIMI 31519 PROCEDURE INFORMATION: Exam: US Duplex Lower ExtremityVeins; Vein mapping Exam date and time: 06/22/2022 [...] Technologist: Monty Thomas Trnscb Date/Time: 06/22/2022 (1729) [email or web address] Orig Print D/T: S: 06/22/2022 (1729) Probe: PAGE 1 Signed Report- DOP ART SGL LEVEL [id number] 00:00:00 [facility] : 1955 Sex: F Name: JENN MOTTA [facility] : 1955 Age/S: 67 / F [address] [place] [address] Unit #: [id number] Loc: [place] [address] Phys: Aleja Funk Acct: [id number] Dis Date: Status: ADM IN PHONE #: [phone] Exam Date: 06/22/2022 1509 FAX #: [phone] Reason: PVD EXAMS: CPT CODE: [id number] DOP ART SGL LEVEL YEIMI 44638 PROCEDURE INFORMATION: Exam: US Duplex Lower Extremity Arteries Exam date and time: 06/22/2022 10:42 AM Age: 67 years old Clinical indication: Condition or disease; Peripheral vascular disease; Additional info: Pvd TECHNIQUE: Imaging protocol: Real-time ultrasound scan of the arteries of the bilateral lower extremities with 2-D solis scale, color Doppler flow and sp ectral waveform analysis. Images documented and saved. COMPARISON: No relevant prior studies available. FINDINGS: Right common femoral artery: No occlusion or significant stenosis. Normal waveform. Right superficial femoral artery: No occlusion or significant stenosis. Normal waveform. Right popliteal artery: No occlusion or significant stenosis. Normal waveform. Right calf/foot arteries: The rightposterior tibialis artery demonstrates areas of occlusion versus significant stenosis. The dorsalis pedis arteries patent. Left common femoral artery: No occlusion or significant stenosis. Normal waveform. Left superficial femoral artery: No occlusion or significant stenosis. Normal waveform. Left popl iteal artery: No occlusion or significant stenosis. Normal [...] Reported and signed by: Jim Uriostegui M.D. PAGE1 Signed Report (CONTINUED) Name: JENN MOTTA [facility] : 1955 Age/S: 67 / F [address] [place] [address] Blvd Unit #: [id number] Loc: [place] [address] Phys: Aleja Funk Acct: [id number] Dis Date: Status: ADM IN PHONE #: [phone] Exam Date: 06/22/2022 1501 FAX #: [phone] Reason: PVD EXAMS: CPT CODE: [id number] DOP ART SGL LEVEL YEIMI 26328 (Continued) CC: Delmy Ashton MD; Jim Dhillon MD; Aleja OROZCO Technologist: Monty Thomas Trnscb Date/Time: 06/22/2022 (1654) DanieMR72 Orig Print D/T: S: 06/22/2022 (1654) Probe: PAGE 2 Signed Report- DUP EXTRACRANIAL [id number] 00:00:00[facility]: [facility]ENN [facility] : 1955 Sex: F Name: JENN MOTTA [facility] Vaughan : 1955 Age/S: 67 / F [address] [place] [address] Blvd Unit #: [id number] Loc: [place] [address] Phys: Aleja Funk Acct: [id number] Dis Date: Status: ADM IN PHONE #: [phone] Exam Date: 06/22/2022 1509 FAX #: [phone] Reason: CABG workup EXAMS: CPTCODE: [id number] DUP EXTRACRANIAL YEIMI 46346 PROCEDURE INFORMATION: Exam: US Duplex Bilateral Extracranial [...] 1 Signed Report (CONTINUED) Name: JENN MOTTA [facility] : 1955 Age/S: 67 / F [address] [place] [address] Blvd Unit #: [id number] Loc: [place] [address] Phys: Aleja Funk Acct: [id number] Dis Date: Status: ADM IN PHONE #: [phone] Exam Date: 06/22/2022 1509 FAX #: [phone] Reason: CABG workup EXAMS: CPT CODE: [id number] DUP EXTRACRANIAL YEIMI 15117 (Continued) CC: Delmy Ashton MD; Jim Dhillon MD; Aleja OROZCO Technologist: Monty Thomas Trnokb Date/Time: 06/22/2022 (1806) Afua Orig Print D/T: S: 06/22/2022 (1807) Probe: PAGE 2 Signed ReportGLUCOSE BEDSIDE 2022-06-21 20:43:00 Test Item Value Reference Range Interpretation Comments GLUCOSE BEDSIDE (test 226 MG/DL 70-110 H Perfor med by certified code = GLUBED) radiotelephone technical operator at [facility] CBC W/AUTO [id number] 20:20:00 Test Item Value Reference Range Interpretation [...] NOT ALREADY DONE WITHIN LAST 24 HOURSGLUCOSE [id number] 18:45:00 Test Item Value Reference Range Interpretation Comments GLUCOSE BEDSIDE (test 168 MG/DL 70-110 H Perfor med by certified code = GLUBED) radiotelephone technical operator at [facility] PROTHROMBIN [id number] 18:42:00 Test Item Value Reference Range Interpretation [...] recommended for bhumika for [facility]by the [facility] for Ad[facility].The [...] ALKP) COMMENTS: If not already done in [facility] [id number] 16:16:00 Test Item Value Reference Range Interpretation Comments POC glucose (test 89 mg/dL 65-99 Textile Artist N desire: Rubin code = 51879-1) EricDevice I D: [id number] able: RN Notified [facility] [id number] 16:16:00 Test Item Value Reference Range Interpretation Comments POC glucose (test 89 mg/dL 65-99 Textile Artist N desire: Rubin code = 46345-3) EricDevice I D: [id number] able: RN Notified [facility] [id number] 16:16:00 Test Item Value Reference Range Interpretation Comments POC glucose (test 89 mg/dL 65-99 Textile Artist N desire: Rubin code = 40048-0) EricDevice I D: [id number] able: RN Notified [facility] [id number] 16:16:00 Test Item Value Reference Range Interpretation Comments POC glucose (test 89 mg/dL 65-99 Textile Artist N desire: Rubin code = 30033-2) EricDevice I D: [id number] able: RN Notified [facility] [id number] 16:16:00 Test Item Value Reference Range Interpretation Comments POC glucose (test 89 mg/dL 65-99 Textile Artist N desire: Rubin code = 92808-2) EricDevice I D: [id number] able: RN Notified [facility]2022-10-19 16:16:00 Test Item Value Reference Range Interpretation Comments POC glucose (test 89 mg/dL 65-99 Textile Artist N desire: Rubin code = 75047-1) EricDevice I D: [id number] able: RN Notified [facility]2022-10-19 16:16:00 Test Item Value Reference Range Interpretation Comments POC glucose (test 89 mg/dL 65-99 Textile Artist N desire: Rubin code = 14114-9) EricDevice I D: [id number] able: RN Notified [facility] [id number] 16:16:00 Test Item Value Reference Range Interpretation Comments POC glucose (test 89 mg/dL 65-99 Textile Artist N desire: Rubin code = 22403-5) EricDevice I D: [id number] able: RN Notified [facility] [id number] 16:16:00 Test Item Value Reference Range Interpretation Comments POC glucose (test 89 mg/dL 65-99 Textile Artist N desire: Rubin code = 22501-3) EricDevice I D: [id number] able: RN Notified [facility] [id number] 13:03:01 Test Item Value Reference Range Interpretation Comments POC sodium (test code = 140 mmol/L 111-729 6374-0) POC potassium (test code 3.9 mmol/L 3.5-5.0 = 6298-4) POC glucose (test code = 78 mg/dL 65-99 2339-0) POC creatinine (test 4.6 mg/dl 0.5-0.9 H Operato r Name: code = 86099-8) Marko kyle ID: [id number] POC hemoglobin (test 8.5 g/dL 12.0-16.0 L code = 718-7) POC hematocrit (test 25 % 37-47 L code = 4544-3) Lab Interpretation (test Abnormal code = 13463-9) [facility]2022-10-19 13:03:01 Test Item Value Reference Range Interpretation Comments POC sodium (test code = 140 mmol/L 333-300 3501-0) POC potassium (test code 3.9 mmol/L 3.5-5.0 = 6298-4) POC glucose (test code = 78 mg/dL 65-99 2339-0) POC creatinine (test 4.6 mg/dl 0.5-0.9 H Operato r Name: code = 55967-9) Marko kyle ID: [id number] POC hemoglobin (test 8.5 g/dL 12.0-16.0 L code = 718-7) POC hematocrit (test 25 % 37-47 L code = 4544-3) Lab Interpretation (test Abnormal code = 96086-8) [facility]2022-10-19 13:03:01 Test Item Value Reference Range Interpretation Comments POC sodium (test code = 140 mmol/L 480-344 5088-0) POC potassium (test code 3.9 mmol/L 3.5-5.0 = 6298-4) POC glucose (test code = 78 mg/dL 65-99 2339-0) POC creatinine (test 4.6 mg/dl 0.5-0.9 H Operato r Name: code = 43120-2) Marko kyle ID: [id number] POC hemoglobin (test 8.5 g/dL 12.0-16.0 L code = 718-7) POC hematocrit (test 25 % 37-47 L code = 4544-3) Lab Interpretation (test Abnormal code = 24162-1) [facility]2022-10-19 13:03:01 Test Item Value Reference Range Interpretation Comments POC sodium (test code = 140 mmol/L 310-343 4382-0) POC potassium (test code 3.9 mmol/L 3.5-5.0 = 6298-4) POC glucose (test code = 78 mg/dL 65-99 2339-0) POC creatinine (test 4.6 mg/dl 0.5-0.9 H Operato r Name: code = 46809-5) Zhu NarMor sanchesziyad ID: [id number] POC hemoglobin (test 8.5 g/dL 12.0-16.0 L code = 718-7) POC hematocrit (test 25 % 37-47 L code = 4544-3) Lab Interpretation (test Abnormal code = 94314-7) [facility]2022-10-19 13:03:01 Test Item Value Reference Range Interpretation Comments POC sodium (test code = 140 mmol/L 971-149 2136-0) POC potassium (test code 3.9 mmol/L 3.5-5.0 = 6298-4) POC glucose (test code = 78 mg/dL 65-99 2339-0) POC creatinine (test 4.6 mg/dl 0.5-0.9 H Operato r Name: code = 29623-7) Zhu NarMor sanchesziyad ID: [id number] POC hemoglobin (test 8.5 g/dL 12.0-16.0 L code = 718-7) POC hematocrit (test 25 % 37-47 L code = 4544-3) Lab Interpretation (test Abnormal code = 64129-1) [facility]2022-10-19 13:03:01 Test Item Value Reference Range Interpretation Comments POC sodium (test code = 140 mmol/L 330-517 3049-0) POC potassium (test code 3.9 mmol/L 3.5-5.0 = 6298-4) POC glucose (test code = 78 mg/dL 65-99 2339-0) POC creatinine (test 4.6 mg/dl 0.5-0.9 H Operato r Name: code = 22364-7) Zhu Madhav sanchesziyad ID: [id number] POC hemoglobin (test 8.5 g/dL 12.0-16.0 L code = 718-7) POC hematocrit (test 25 % 37-47 L code = 4544-3) Lab Interpretation (test Abnormal code = 17888-5) [facility]2022-10-19 13:03:01 Test Item Value Reference Range Interpretation Comments POC sodium (test code = 140 mmol/L 631-467 1818-0) POC potassium (test code 3.9 mmol/L 3.5-5.0 = 6298-4) POC glucose (test code = 78 mg/dL 65-99 2339-0) POC creatinine (test 4.6 mg/dl 0.5-0.9 H Operato r Name: code = 96333-6) Zhu NarMor kyle ID: [id number] POC hemoglobin (test 8.5 g/dL 12.0-16.0 L code = 718-7) POC hematocrit (test 25 % 37-47 L code = 4544-3) Lab Interpretation (test Abnormal code = 27312-0) [facility]2022-10-19 13:03:01 Test Item Value Reference Range Interpretation Comments POC sodium (test code = 140 mmol/L 712-284 4954-0) POC potassium (test code 3.9 mmol/L 3.5-5.0 = 6298-4) POC glucose (test code = 78 mg/dL 65-99 2339-0) POC creatinine (test 4.6 mg/dl 0.5-0.9 H Operato r Name: code = 71005-6) Zhu Madhav kyle ID: [id number] POC hemoglobin (test 8.5 g/dL 12.0-16.0 L code = 718-7) POC hematocrit (test 25 % 37-47 L code = 4544-3) Lab Interpretation (test Abnormal code = 94163-9) [facility]2022-10-19 13:03:01 Test Item Value Reference Range Interpretation Comments POC sodium (test code = 140 mmol/L 174-182 8465-0) POC potassium (test code 3.9 mmol/L 3.5-5.0 = 6298-4) POC glucose (test code = 78 mg/dL 65-99 2339-0) POC creatinine (test 4.6 mg/dl 0.5-0.9 H Operato r Name: code = 08707-3) Marko kyle ID: [id number] POC hemoglobin (test 8.5 g/dL 12.0-16.0 L code = 718-7) POC hematocrit (test 25 % 37-47 L code = 4544-3) Lab Interpretation (test Abnormal code = 05160-5) [id number] 13:03:00 Test Item Value Reference Range Interpretation Comments Estimated GFR (test mL/min/1.73 m2 A Caterg ory Units code = 56154-1) Interpretati onG1 >=90 Normal or highG 2 60-89 Mildly decrease dG3a 45-59 Mildly to moderately decr mueuyG6d 30-44 Moderatel y to severely decrea sedG4 15-29 Severely decreasedG5 <15 Kidney failureThe eGFR was calculated usin g the Chronic Kidney Disease Epidemiology Collaboration ( CKD-EPI) equation. Interpretation is based on recommendati ons of the [facility] Disease Outcome s Quality Initiat hermes (NK-KDOQI) pub lished in 2013. Lab Interpretation Abnormal (test code = 80458-3) [facility] [id number] 13:03:00 Test Item Value Reference Range Interpretation Comments Estimated GFR (test 9 mL/min/1.73 m2 A Caterg ory Units code = 84407-8) Interpretati onG1 >=90 Normal or highG 2 60-89 Mildly decrease dG3a 45-59 Mildly to moderately decr gxwyyK4l 30-44 Moderatel y to severely decrea sedG4 15-29 Severely decreasedG5 <15 Kidney failureThe eGFR was calculated usin g the Chronic Kidney Disease Epidemiology Collaboration ( CKD-EPI) equation. Interpretation is based on recommendati ons of the [facility] Disease Outcome s Quality Initiat hermes (NKF-KDOQI) pub lished in 2013. Lab Interpretation Abnormal (test code = 71546-3) [facility] [id number] 13:03:00 Test Item Value Reference Range Interpretation Comments Estimated GFR (test 9 mL/min/1.73 m2 A Caterg ory Units code = 28881-1) Interpretati onG1 >=90 Normal or highG 2 60-89 Mildly decrease dG3a 45-59 Mildly to moderately decr rcxnsU1h 30-44 Moderatel y to severely decrea sedG4 15-29 Severely decreasedG5 <15 Kidney failureThe eGFR was calculated usin g the Chronic Kidney Disease Epidemiology Collaboration ( CKD-EPI) equation. Interpretation is based on recommendati ons of the [facility] Disease Outcome s Quality Initiat hermes ([facility]-KDOQI) pub lished in 2013. Lab Interpretation Abnormal (test code = 36034-2) [facility] [id number] 13:03:00 Test Item Value Reference Range Interpretation Comments Estimated GFR (test 9 mL/min/1.73 m2 A Caterg ory Units code = 52136-2) Interpretati onG1 >=90 Normal or highG 2 60-89 Mildly decrease dG3a 45-59 Mildly to moderately decr vrkykL3y 30-44 Moderatel y to severely decrea sedG4 15-29 Severely decreasedG5 <15 Kidney failureThe eGFR was calculated usin g the Chronic Kidney Disease Epidemiology Collaboration ( CKD-EPI) equation. Interpretation is based on recommendati ons of the [facility] Disease Outcome s Quality Initiat hermes ([facility]) pub lished in 2013. Lab Interpretation Abnormal (test code = 10200-9) [facility] [id number] 13:03:00 Test Item Value Reference Range Interpretation Comments Estimated GFR (test 9 mL/min/1.73 m2 A Caterg ory Units code = 20971-7) Interpretati onG1 >=90 Normal or highG 2 60-89 Mildly decrease dG3a 45-59 Mildly to moderately decr lvjypU9b 30-44 Moderatel y to severely decrea sedG4 15-29 Severely decreasedG5 <15 Kidney failureThe eGFR was calculated usin g the Chronic Kidney Disease Epidemiology Collaboration ( CKD-EPI) equation. Interpretation is based on recommendati ons of the [facility] Disease Outcome s Quality Initiat hermes ([facility]) pub lished in 2013. Lab Interpretation Abnormal (test code = 58178-0) [facility] [id number] 13:03:00 Test Item Value Reference Range Interpretation Comments Estimated GFR (test 9 mL/min/1.73 m2 A Caterg ory Units code = 13316-0) Interpretati onG1 >=90 Normal or highG 2 60-89 Mildly decrease dG3a 45-59 Mildly to moderately decr plhrrZ6h 30-44 Moderatel y to severely decrea sedG4 15-29 Severely decreasedG5 <15 Kidney failureThe eGFR was calculated usin g the Chronic Kidney Disease Epidemiology Collaboration ( CKD-EPI) equation. Interpretation is based on recommendati ons of the [facility] Disease Outcome s Quality Initiat hermes ([facility]) pub lished in 2013. Lab Interpretation Abnormal (test code = 41258-8) [facility] [id number] 13:03:00 Test Item Value Reference Range Interpretation Comments Estimated GFR (test 9 mL/min/1.73 m2 A Caterg ory Units code = 33022-2) Interpretati onG1 >=90 Normal or highG 2 60-89 Mildly decrease dG3a 45-59 Mildly to moderately decr rsvprH8z 30-44 Moderatel y to severely decrea sedG4 15-29 Severely decreasedG5 <15 Kidney failureThe eGFR was calculated usin g the Chronic Kidney Disease Epidemiology Collaboration ( CKD-EPI) equation. Interpretation is based on recommendati ons of the [facility] Disease Outcome s Quality Initiat hermes ([facility]) pub lished in 2013. Lab Interpretation Abnormal (test code = 29632-2) [facility] [id number] 13:03:00 Test Item Value Reference Range Interpretation Comments Estimated GFR (test 9 mL/min/1.73 m2 A Caterg ory Units code = 73224-1) Interpretati onG1 >=90 Normal or highG 2 60-89 Mildly decrease dG3a 45-59 Mildly to moderately decr btnvoZ8b 30-44 Moderatel y to severely decrea sedG4 15-29 Severely decreasedG5 <1 5 Kidney failureThe eGFR was calculated usin g the Chronic Kidney Disease Epidemiology Collaboration ( CKD-EPI) equation. Interpretation is based on recommendati ons of the [facility] Disease Outcome s Quality Initiat hermes ([facility]) pub lished in 2013. Lab Interpretation Abnormal (test code = 21147-3) [facility] [id number] 13:03:00 Test Item Value Reference Range Interpretation Comments Estimated GFR (test 9 mL/min/1.73 m2 Malena souza Units code = 27270-6) Interpretati onG1 >=90 Normal or highG 2 60-89 Mildly decrease dG3a 45-59 Mildly to moderately decr hvsavA3c 30-44 Moderatel y to severely decrea sedG4 15-29 Severely decreasedG5 <15 Kidney failureThe eGFR was calculated usdestini g the Chronic Kidney Disease Epidemiology Collaboration ( CKD-EPI) equation. Interpretation is based on recommendati ons of the [facility] Disease Outcome s Quality Initiat hermes (NK-KDOQI) [facility] Lab Interpretation Abnormal (test code = 77494-5) [facility] pathology [id number] 19:03:18 Test Item Value Reference Range Interpretation Comments Case number (test code = [id number]) Surgical pathology See link below for report (test code = PDF Lab Report 2255) Result status (test code This is Final Report = [id number]) [id number] [facility] [id number] 19:03:18 Test Item Value Reference Range Interpretation Comments Case number (test code = [id number]) Surgical pathology See link below for report (test code = PDF Lab Report 2255) Result status (test code This is Final Report = [id number]) for [id number] [facility] pathology [id number] 19:03:18 Test Item Value Reference Range Interpretation Comments Case number (test code = [id number]) Surgical pathology See link below for report (test code = PDF Lab Report 2255) Result status (test code This is Final Report = [id number]) for [id number] [facility] [id number] 19:03:18 Test Item Value Reference Range Interpretation Comments Case number (test code = [id number]) Surgical pathology See link below for report (test code = PDF Lab Report 2255) Result status (test code This is Final Report = [id number]) [id number] [facility] [id number] 19:03:18 Test Item Value Reference Range Interpretation Comments Case number (test code = [id number]) Surgical pathology See link below for report (test code = PDF Lab Report 2255) Result status (test code This is Final Report = [id number]) for [id number] [facility] pathology [id number] 19:03:18 Test Item Value Reference Range Interpretation Comments Case number (test code = [id number]) Surgical pathology See link below for report (test code = PDF Lab Report 2255) Result status (test code This is Final Report = [id number]) for [id number] [facility] pathology [id number] 19:03:18 Test Item Value Reference Range Interpretation Comments Case number (test code = [id number]) Surgical pathology See link below for report (test code = PDF Lab Report 2255) Result status (test code This is Final Report = [id number]) for [id number] pathology [id number] 19:03:18 Test Item Value Reference Range Interpretation Comments Case number (test code = [id number]) Surgical pathology See link below for report (test code = PDF Lab Report 2255) Result status (test code This is Final Report = [id number]) for [id number] [facility] pathology [id number] 19:03:18 Test Item Value Reference Range Interpretation Comments Case number (test code = [id number]) Surgical pathology See link below for report (test code = PDF Lab Report 2255) Result status (test code This is Final Report = [id number]) [id number] [facility] [id number] 10:49:53 Test Item Value Reference Range Interpretation Comments Ventricular rate (test code = 253) Atrial rate (test code = 255) WI interval (test code = 266) QRSD interval [...] inversion now evident in Inferior leads- [facility] Pre/Post [id number] 10:49:53 Test Item Value Reference Range Interpretation Comments Ventricular rate (test 101 code = 253) Atrial rate (test code 101 = 255) WI interval (test code 160 = 266) QRSD [...] inversion now evident in Inferior leads- [facility] Pre/Post [id number] 10:49:53 Test Item Value Reference Range Interpretation Comments Ventricular rate (test 101 code = 253) Atrial rate (test code 101 = 255) WI interval (test code 160 = 266) QRSD [...] inversion now evident in Inferior leads- [facility] Pre/Post [id number] 10:49:53 Test Item Value Reference Range Interpretation Comments Ventricular rate (test 101 code = 253) Atrial rate (test code 101 = 255) WI interval (test code 160 = 266) QRSD [...] inversion now evident in Inferior leads- [facility] Pre/Post [id number] 10:49:53 Test Item Value Reference Range Interpretation Comments Ventricular rate (test 101 code = 253) Atrial rate (test code 101 = 255) WI interval (test code 160 = 266) QRSD [...] inversion now evident in Inferior leads- [facility] Pre/Post [id number] 10:49:53 Test Item Value Reference Range Interpretation Comments Ventricular rate (test 101 code = 253) Atrial rate (test code 101 = 255) WI interval (test code 160 = 266) QRSD [...] inversion now evident in Inferior leads- [facility] Pre/Post [id number] 10:49:53 Test Item Value Reference Range Interpretation Comments Ventricular rate (test 101 code = 253) Atrial rate (test code 101 = 255) WI interval (test code 160 = 266) QRSD [...] inversion now evident in Inferior leads- [facility] Pre/Post [id number] 10:49:53 Test Item Value Reference Range Interpretation Comments Ventricular rate (test 101 code = 253) Atrial rate (test code 101 = 255) WI interval (test code 160 = 266) QRSD [...] inversion now evident in Inferior leads- [facility] Pre/Post [id number] 10:49:53 Test Item Value Reference Range Interpretation Comments Ventricular rate (test 101 code = 253) Atrial rate (test code 101 = 255) WI interval (test code 160 = 266) QRSD [...] wave inversion now evident in Inferior leads- [facility] GLUCOSE (AUTOMATED)2020-10-14 12:45:50 Test Item Value Reference Range Interpretation Comments POCT GLU (test code = 0589821526) 255 mg/dL 70-110 H Lab Interpretation (test code = Abnormal 01555-3) [facility] [id number] 12:35:00 Test Item Value Reference Range Interpretation Comments POCT Glu (age>30days) (test code = 255 mg/dL 70-110 A 3342) Lab Interpretation (test code = Abnormal 71089-6) [facility]-CoV-2 (COVID-19) RNA [Presence] in Respiratory specimen by JUANY with probe [id number] 01:15:19 Test Item Value Reference Range Interpretation Comments SARS-CoV-2 (COVID-19) RNA Not detected Not-Detected [Presence] in Respiratory specimen by JUANY with probe detection (test code = 79934-7) [facility] [id number] 12:03:00 Test Item Value Reference Range Interpretation Comments POCT Glu (age>30days) (test code = 142 mg/dL 70-110 A 3342) Lab Interpretation (test code = Abnormal 05367-0) [facility]-CoV-2 (COVID-19) RNA [Presence] in Respiratory specimen by JUANY with probe [id number] 18:03:16 Test Item Value Reference Range Interpretation Comments SARS-CoV-2 (COVID-19) RNA Not detected Not-Detected [Presence] in Respiratory specimen by JUANY with probe detection (test code = 37327-9) [facility]
[2022-11-09 13:55] LABS: Absolute Lymphocytes (CBC) 0.6 K/uL (0.7-4.9); Hematocrit 27.5 % (36.0-45.0); Lymphocytes % 6.3 % (15.3-44.8); MCV 91.3 fL (80-100); MPV 6.6 fL (7.6-11.3); RBC Red Blood Cell Count 3.02 M/uL (3.86-4.86)
[2022-11-09] MEDS ORDERED: FLEET ENEMA ADULT PR ONE (13:57)
[2022-11-09 14:09] LABS: Potassium 3.4 mEq/L (3.5-5.1)
--- NOTE | 2022-11-09 15:46 | RAD REPORT ---
EXAM DESCRIPTION: CT - Abdomen Pelvis Wo Contrast - 11/09/2022 3:31 pm CLINICAL HISTORY: Abdominal pain. ABD PAIN COMPARISON: Abdomen Pelvis W Contrast dated 10/20/2021 TECHNIQUE: CT imaging of the abdomen and pelvis was performed without contrast. Solid organ, bowel a nd vascular assessment is limited due to lack of IV and oral contrast. All CT scans are performed using dose optimization technique as appropriate and may include automated exposure control or mA/KV adjustment according to patient size. FINDINGS: The lower lung nichols are clear.Cholecystectomy. The liver, spleen, pancreas, adrenal glands and right kidney are within normal limits for a limited n on-contrast examination.Significant atherosclerosis. Atrophic the left kidney. No bowel obstruction, free air, free fluid or abscess. Significant stool in the colon. Lower lumbar degenerative changes. IMPRESSION: Significant stool in the colon. A limited non-contrast examination was performed as detailed.
--- NOTE | 2022-11-09 15:59 | ER ---
Nurse's Notes [facility] Name: Meseret Gallego Age: 67 yrs Sex: Female : 1955 Arrival Date: 11/09/2022 Time: 13:24 Bed 11 Private MD: Diagnosis: Constipation Presentation: 11/09 13:25 Chief complaint: EMS states: "Pt has been constipated for the past 2 days. Pt and home mb9 nurse tried to deimpact at home and was unsuccessful. Pt states she skipped dialysis yesterday due to feeling nauseous and usually goes every MWF". Coronavirus screen: Vaccine status: Patient reports receiving the 2nd dose of the covid vaccine. Ebola Screen: No symptoms or risks identified at this time. Initial Sepsis Screen: Does the patient meet any 2 criteria? No. Patient's initial sepsis screen is negative. Does the patient have a suspected source of infection? No. Patient's initial sepsis screen is negative. Risk Assessment: Do you want to hurt yourself or someone else? Patient reports no desire to harm self or others. Onset of symptoms was November 07, 2022. 13:25 Method Of Arrival: EMS: [facility] mb9 13:25 Acuity: CHRISTOPHER 3 mb9 Triage Assessment: 13:29 General: Appears uncomfortable, Behavior is cooperative. Pain: Denies pain. mb9 Cardiovascular: Patient's skin is warm and dry. Respiratory: Airway is patent Respiratory effort is even, unlabored, Respiratory pattern is regular, symmetrical. GI: Abdomen is round non-distended, Last BM was November 07, 2022. Abd is soft Abd is non tender Reports constipation. : No signs and/or symptoms were reported regarding the genitourinary system. Derm: Skin is pink, warm \\T\\ dry. Historical: - Allergies: 13:28 Codeine; mb9 13:28 Phenergan; mb9 13:28 Tape; mb9 - Home Meds: 13:28 Wellbutrin XL 150 mg Oral Tb24 1 tab once daily [Active]; amlodipine 10 mg tab 1 tab mb9 once daily [Active]; aspirin 81 mg Oral capsule daily [Active]; atorvastatin 40 mg Oral tab 1 tab every day at bedtime [Active]; - PMHx: 13:28 Diabetes - IDDM; Myocardial infarction; Hypercholesterolemia; Hypertension; Dialysis; mb9 Hypothyroidism; - PSHx: 13:28 2 heart stents; back; section; neck; knee; mb9 - Immunization history:: Adult Immunizations up to date. - Social history:: Smoking status: Patient denies any tobacco usage or history of. Screenin:30 [facility] ED Fall Risk Assessment (Adult) History of falling in the last 3 months, mb9 including since admission No falls in past 3 months (0 pts) Confusion or Disorientation No (0 pts) Intoxicated or Sedated No (0 pts) Impaired Gait No (0 pts) Mobility Assist Device Used No (0 pt) Altered Elimination No (0 pt) Score/Fall Risk Level 0 - 2 = Low Risk Oriented to surroundings, Maintained a safe environment, Educated pt \\T\\ family on fall prevention, incl call for assistance when getting out of bed. Abuse screen: Denies threats or abuse. Nutritional screening: No deficits noted. Tuberculosis screening: No symptoms or risk factors identified. Assessment: 13:30 Reassessment: see triage assessment. mb9 15:00 GI: Stools are reported to be loose, Reports constipation. mb9 16:07 Reassessment: Patient and/or family updated on plan of care and expected duration. Pain mb9 level reassessed. Patient is alert, oriented x 3, equal unlabored respirations, skin warm/dry/pink. Patient states feeling better. Patient states symptoms have improved. Vital Signs: 13:25 BP 145 / 71; Pulse 84; Resp 18; Temp 98.8; Pulse Ox 98% on R/A; Weight 73.48 kg; Height mb9 5 ft. 6 in. ; 15:00 BP 140 / 89; Pulse 92; Resp 18; Pulse Ox 98% on R/A; mb9 16:22 BP 142 / 86; Pulse 74; Resp 16; Pulse Ox 98% ; mb9 13:25 Body Mass Index 26.15 (73.48 kg, 167.64 cm) mb9 ED Course: 13:25 Patient arrived in ED. mb9 13:25 Arm band placed on. mb9 13:26 Marcel Sykes MD is Attending Physician. rn 13:28 Emilee Childress FNP-C is [facility]. rn 13:28 Triage completed. mb9 13:30 Placed in gown. Bed in low position. Call light in reach. Side rails up X 1. Client mb9 placed on continuous cardiac and pulse oximetry monitoring. NIBP monitoring applied. child monitor on. 13:30 No provider procedures requiring assistance completed. mb9 14:01 Adrianne Her, RN is Primary Nurse. mb9 14:01 Basic Metabolic Panel Sent. mb9 14:01 CBC with Diff Sent. mb9 15:31 CT Abd/Pelvis - Without Contrast In Process Unspecified. EDMS 16:07 Patient did not have IV access during this emergency room visit. mb9 Administered Medications: 14:01 Drug: Fleet Enema UT 133 ml Route: UT; mb9 14:30 Follow up: Response: No adverse reaction mb9 Medication: 13:30 VIS not applicable for this client. mb9 Outcome: 15:59 Discharge ordered by . kb 16:07 Discharged to home via wheelchair. mb9 16:07 Condition: stable 16:07 Discharge instructions given to patient, Instructed on discharge instructions, follow up and referral plans. Demonstrated understanding of instructions, follow-up care. 16:23 Patient left the ED. mb9 Signatures: Dispatcher [employer] EDIN Emilee Childress, TUBE MAKER-C TUBE MAKER-Ckb Marcel Sykes MD MD rn Breneman, Mary Beth, RN RN mb9
--- NOTE | 2022-11-09 15:59 | EDPHYS ---
Physician Documentation [facility] Name: Meseret Gallego Age: 67 yrs Sex: Female : 1955 Arrival Date: 11/09/2022 Time: 13:24 Bed 11 Private MD: ED Physician Marcel Sykes HPI: 11/09 16:57 This 67 yrs old Female presents to ER via EMS with complaints of constipation. kb 16:57 The patient presents with constipation. Onset: The symptoms/episode began/occurred 2 kb day(s) ago. The symptoms do not radiate. Associated signs and symptoms: Pertinent positives: constipation, Pertinent negatives: nausea and vomiting, fever. The symptoms are described as constant. Modifying factors: The symptoms are alleviated by nothing, the symptoms are aggravated by nothing. Severity of pain: At its worst the pain was mild moderate in the emergency department the pain is unchanged. The patient has experienced similar episodes in the past. The patient has been recently seen by a physician:. Pt reports she was recently hospitalized and they only gave her one stool softener a day instead of 2 in the morning and 2 at night like she normally does. states she always gets constipated after hospitalizations because they don't continue her normal regimen. c/o abd discomfort and constipation. Normally comes in and gets an enema to fix the problem. States she missed dialysis yesterday as well. Historical: - Allergies: 13:28 Codeine; mb9 13:28 Phenergan; mb9 13:28 Tape; mb9 - Home Meds: 13:28 Wellbutrin XL 150 mg Oral Tb24 1 tab once daily [Active]; amlodipine 10 mg tab 1 tab mb9 once daily [Active]; aspirin 81 mg Oral capsule daily [Active]; atorvastatin 40 mg Oral tab 1 tab every day at bedtime [Active]; - PMHx: 13:28 Diabetes - IDDM; Myocardial infarction; Hypercholesterolemia; Hypertension; Dialysis; mb9 Hypothyroidism; - PSHx: 13:28 2 heart stents; back; section; neck; knee; mb9 - Immunization history:: Adult Immunizations up to date. - Social history:: Smoking status: Patient denies any tobacco usage or history of. ROS: 16:49 Constitutional: Negative for fever, chills, and weight loss. kb 16:49 Abdomen/GI: Positive for abdominal pain, constipation. 16:49 All other systems are negative. Exam: 16:49 Constitutional: This is a well developed, well nourished patient who is awake, alert, kb and in no acute distress. Head/Face: Normocephalic, atraumatic. ENT: Moist Mucous membranes Cardiovascular: Regular rate and rhythm with a normal S1 and S2. No gallops, murmurs, or rubs. No pulse deficits. Respiratory: Respirations even and unlabored. No increased work of breathing. Talking in full sentences Abdomen/GI: Soft, non-tender. No distention Skin: Warm, dry with normal turgor. Normal color. MS/ Extremity: Pulses equal, no cyanosis. Neurovascular intact. Full, normal range of motion. Neuro: Awake and alert, GCS 15, oriented to person, place, time, and situation. Moves all extremities. Normal gait. Vital Signs: 13:25 BP 145 / 71; Pulse 84; Resp 18; Temp 98.8; Pulse Ox 98% on R/A; Weight 73.48 kg; Height mb9 5 ft. 6 in. ; 15:00 BP 140 / 89; Pulse 92; Resp 18; Pulse Ox 98% on R/A; mb9 16:22 BP 142 / 86; Pulse 74; Resp 16; Pulse Ox 98% ; mb9 13:25 Body Mass Index 26.15 (73.48 kg, 167.64 cm) mb9 MDM: 13:26 Patient medically screened. rn 16:50 Differential diagnosis: bowel obstruction, fecal impaction, constipation. Data kb reviewed: vital signs, nurses notes. Historians other than the Patient: EMS: [facility]. Counseling: I had a detailed discussion with the patient and/or guardian regarding: the historical points, exam findings, and any diagnostic results supporting the discharge/admit diagnosis, lab results, radiology results, the need for outpatient follow up, a family practitioner, to return to the emergency department if symptoms worsen or persist or if there are any questions or concerns that arise at home. ED course: pt feeling better after enema and bowel movement. States she is ready to go home. 11/09 13:38 Order name: CBC with Diff kb 11/09 13:38 Order name: Basic Metabolic Panel; Complete Time: 14:10 kb 11/09 15:19 Order name: CT Abd/Pelvis - Without Contrast; Complete Time: 15:53 kb 11/09 13:38 Order name: IV Start; Complete Time: 14:01 kb Administered Medications: 14:01 Drug: Fleet Enema ND 133 ml Route: ND; mb9 14:30 Follow up: Response: No adverse reaction mb9 Disposition Summary: 11/09/22 15:59 Discharge Ordered Location: Home kb Condition: Stable kb Diagnosis - Constipation kb Followup: kb - With: Emergency Department - When: As needed - Reason: Worsening of condition Followup: kb - With: Private Physician - When: 2 - 3 days - Reason: Recheck today's complaints, Continuance of care, Re-evaluation by your physician Discharge Instructions: - Discharge Summary Sheet kb - Constipation, Adult, [id number]-[id number] kb Forms: - Medication Reconciliation Form kb - Thank You Letter kb - Antibiotic Education kb - Prescription Opioid Use kb Signatures: Dispatcher [employer] EDEmilee Melchor, NILE-C DISTANCE EDUCATION COORDINATOR-Jannb Marcel Sykes MD MD rn Breneman, Mary Beth, RN RN mb9
[2022-11-09 16:34] VITALS: TEMP 98.8; O2SAT 98
[2022-11-09 16:37] VITALS: BP 142/86
[2022-11-09 18:14] LABS: Blood Morphology Comment NOT SEEN (NOT SEEN); Platelet Estimate ADEQ; White Blood Cell Scan OK (OK)
== END 2022-11-09 16:23 | disposition home or self-care (01) ==
LOC: ER 13:24
DX: K59.00 Constipation, unspecified (principal); Z99.2 Dependence on renal dialysis; Z95.818 Presence of other cardiac implants and grafts; E11.9 Type 2 diabetes mellitus without complications; I10 Essential (primary) hypertension; Z88.5 Allergy status to narcotic agent; Z88.8 Allergy status to other drugs, medicaments and biological substances; Z91.048 Other nonmedicinal substance allergy status
CPT/HCPCS: 36415; 74176; 80048; 85025; 99284

== ENCOUNTER 2022-11-21 08:58 | Inpatient (IN) | payer OTHER ==
--- OUTSIDE RECORDS SUMMARY | 2022-11-21 09:14 | XMS REPORT | Continuity of Care Document ---
:1955 Author Organization [facility] t Address [address] [facility] [address] [place] [id number] Care Team Providers Name Role Phone SABRINA MORA Primary Care Physician Unavailable [id number] Attending Clinician Unavailable Sabrina Mora Attending Clinician Unavailable Forest Schmid Attending Clinician Unavailable Joaquín Myrick Attending Clinician Unavailable Alexandra Arrieta Attending Clinician Unavailable FAUSTO MORAES Attending Clinician Unavailable Daija Ruiz RN Attending Clinician Unavailable BROOKLYN URBAN Attending Clinician Unavailable Cori ARIAS, Kathrein Angulo Attending Clinician Brooklyn Urban DO Attending Clinician Adonis Gaytan Attending Clinician Unavailable Eugenio BURROUGHS, Jose Keller Attending Clinician Benjie BURROUGHS, Reji Baldwin Attending Clinician Ce Knutson NP Attending Clinician CARSON IVERSON Attending Clinician Unavailable Yvan BURROUGHS, Jory Nguyen Attending Clinician [phone] Mao THERMITE BOMB LOADER, Corrina To Attending Clinician [phone] Doctor Unassigned, [place] Attending Clinician Unavailable Funmi Allen MA Attending Clinician Unavailable Karen Calderón Attending Clinician Unavailable Angel Mas Attending Clinician Unavailable Farahn Michel Attending Clinician Maya Valdez MA Attending Clinician Unavailable Fausto Moraes MD Attending Clinician Pob, [facility] Main Attending Clinician Unavailable Only, Adc Test Attending Clinician Unavailable SUSAN WHITE Attending Clinician Unavailable MD TUSHAR REYES Attending Clinician Unavailable TUSHAR REYES Attending Clinician Unavailable Demetrio Christensen CRNA Attending Clinician Tracy Heart MD Attending Clinician BO CARTER Attending Clinician Unavailable [id number] Admitting Clinician Unavailable Forest Schmid Admitting Clinician [...] Number Effective Date Expiration Date Juan DUKE HUMSenia [id number] SRAVANMED/AARP [id number] 2020 MCARE ADV 00:00:00 CHOICE PPO MEDICARE PART A [id number] 2020 \\T\\ B 00:00:00 HUMANA MEDICARE 53 [id number] 2021 Common Sp rachelle 00:00:00 [facility] Problems Condition Condition Condition Status [...] 00:00: [place] involving involving 00 Medi jose [place] 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 pectoris pectoris End stage End stage Disease Active Uni vers renal renal 4-30 ity of disease disease 00:00: [place] due to due to 00 Medical benign benign Branch hypertensi hypertensi on on Mixed Mixed Disease Active Univers hyperlipid hyperlipid 4-30 it y of emia emia 00:00: [place] 00 Medical Branch Dyslipidem Dyslipidem Disease Active U nivers ia ia 4-30 ity of 00:00: [place] 00 Medical Branch Essential Essential Disease Active [...] Added automatic ally from request for surgery [id number] ESRD (end ESRD (end Disease Active 2019-07 Met hodi stage stage 1-05 st renal renal 00:00: Hospita disease) disease) 00 l on on dialysis dialysis [id number] Unsteady Problem Commo n gait [facility] Arrhythmia Arrhythmia Problem C ommon [facility] [id number] Retinopath Problem Com mon y Spirit [facility] [id number] Seasonal Problem Comm on allergies [facility] [id number] PUD Problem Common (peptic Spirit ulcer - CHI disease) [facility] [id number] Body mass Problem Com mon index [facility] [BMI] - [facility] 38.0-38.9, [facility] [id number] Diabetic Problem Comm on polyneurop Spirit athy - CHI associated St with type [facility] 2 diabetes Medica l mellitus Center [id number] Morbid Problem Commo n [id number] (severe) Spirit obesity - [facility]I due to [facility] Secondary Secondary Problem Com mon hyperparat hyperparat Sp rachelle hyroidism hyroidism, - C HI not St elsewhere [facility] Medica l Center Athscl Athscl Problem Common [place] Spirit arteries arteries - [facility]I of of extremitie extremitie Ely kes s w s w Medical ulceration ulceration Ce nter Non-pressu Non-pressu Problem C ommon re chronic re chronic Sp rachelle ulcer of ulcer of - CHI other part other part St of right of right [facility] foot with foot with Medi jose unspecifie unspecifie Ce nter d severity d severity Chronic Chronic Problem Common congestive diastolic Spi rit heart CHF - CHI failure (congestiv [facility] heart [facility] failure) [facility] [id number] Stented Problem Commo n coronary [facility] artery - [facility] [id number] Oxygen Problem Commo n 07 dependent Spirit [facility] [id number] Anemia in Problem Com mon chronic Spirit illness - [facility] Allergic Non-season Problem Com mon rhinitis al Spirit allergic - [facility], [facility] , unspecifie d trigger Dependence Dialysis Problem Com mon on renal patient [facility] dialysis [facility] Anxiety Anxiety Problem Common about about [facility] health health [facility] [id number] End stage Problem Comm on renal [facility] disease - [facility] Hypothyroi Hypothyroi Problem C ommon dism dism [facility] Cholelithi Gall Problem Commo n asis bladder Spirit without stones - [facility] obstructio [facility] Hypertensi Hypertensi Problem C ommon on on [facility] Type II Uncontroll Problem Comm on diabetes ed type 2 Spiri t mellitus diabetes - CHI without mellitus St complicati with [facility] on insulin Medical therapy Center Gastroesop GERD Problem Commo n hageal (gastroeso Spirit reflux phageal - CHI disease reflux St disease) [facility] Vitamin D Vitamin D Problem Com mon deficiency deficiency Sp rachelle - CHI [facility] Carpal Carpal Problem Resolve 2021-08-25 Mem oria tunnel tunnel d 22:23:46 l syndrome syndrome Jacob n (disorder) (disorder) Resolved Problem 08/25/20211982 [facility] Problem Resolve 2021-08-25 Memoria delivery - delivery - d 22:23:46 l delivered delivered Latoya joss (finding) (finding) Resolved Problem 08/25/20211984 [facility] [...] Jairo frida (finding) (finding) 22:23:46 l Active [place] Problem 08/25/2021 [facility] Allergies, Adverse Reactions, Alerts Allergy Allergy Status Severity Reaction(s) Onset Inactive Treating Comm ents Source Name Type Date Date Clinician OXYCODON DRUG Active Hallucinates Un hellen E INGREDI 11-04 ity of 00:00: [address] Branch PHENERGA DRUG Active Other-Cmnt Univ ers N PLAIN 11-04 ity of 00:00: [place] 00 Medical Branch ADHESIVE Drug Active Rash 2022-0 Univers Class 4- ity of 00:00: Medical Branch Adhesive Propensi Active Rash 2022-0 Univer s ty to 11-04 ity of adverse 00:00: [place] reaction 00 Medical s Branch Oxycodon Propensi Active Hallucinatio 2022- Univers e ty to ns 11-04 ity [...] Uni vers INGREDI 03-30 ity of 00:00: Medical Branch Codeine Propensi Active Hallucinatio 2019-0 [...] to is drug codeine DA Active U 2000- [facility] - Clear 00:00: [facility] CODEINE DA Active U HALLUCINATIO 2000- [facility] N 08-06 Clear 00:00: Hernandez [facility] No Known DA Active U 2000-07 [facility] Contrast 08-06 Clear Allergie 00:00: Hernandez s 00 [facility] No Known DA Active U 2000- [facility] Food 08-06 Clear Allergie 00:00: Hernandez s 00 [facility] No Known DA Active U 2000-07 [facility] Other 08-06 Clear Allergie 00:00: Hernandez s [facility] Opioids Propensi Active Rash Hallucina Meth deonte - ty to 6-17 tions ( st Morphine adverse 00:00: [facility] Analogue reaction 00 craw over l s s to body).Oth drug er reaction( s): Anaphylax ishalluci nations codeine codeine Active Memoria l [place] Phenerga Phenerga Active Memori a n n l [place] Tape Tape Active Memoria l [place] prometha prometha Active Unknown Commo n zine zine Spirit - [facility]I [facility] codeine codeine Active Unknown Common Spirit - [facility] NO KNOWN Drug Active Univers ALLERGIE Class ity of S [place] [facility] Family History Family Member Diagnosis Comments Start Date Stop Date Source Natural father [facility] Hy[facility] Natural mother Diabetes [facility] Natural mother Hyperlipidemia Method [facility] Natural mother Hypertension [facility] Natural mother Kidney disease Method [facility] Social History Social Habit Start Date Stop Date Quantity Comments Source History SDOH University o f Alcohol Std Drinks [place] [facility] History SDOH University o f Alcohol Binge [place] Medic al Branch History SDOH Social Unive rsity of Connections [facility] Med ical Together Branch History SDOH Social Unive rsity of Connections [facility] Medical Branch History SDOH Social Unive rsity of Connections [place] Medical Membership Branch History SDOH Social Unive rsity of Connections [place] [facility] Meetings Branch History of Tobacco Common Spirit - Use [facility] Gender identity [facility] Sexual orientation Method [facility] Hospital History SDOH 2022-11-06 2022-11-06 1 University o f Alcohol Frequency 00:00:00 00:00:00 [place] M edical Branch History SDOH Social 2022-11-06 2022-11-06 5 Unive rsity of Connections Phone 00:00:00 00:00:00 [place] M edical Branch History SDOH Social 2022-11-06 2022-11-06 5 Unive rsity of Connections Living 00:00:00 00:00:00 [place] [facility] History SDOH 2022-11-06 2022-11-06 0 University o f Physical Activity 00:00:00 00:00:00 [place] M edical DPW Branch History SDOH 2022-11-06 2022-11-06 0 University o f Physical Activity 00:00:00 00:00:00 [place] M edical MPS Branch History SDOH 2022-11-06 2022-11-06 5 University o f Financial 00:00:00 00:00:00 [place] [facility] History SDOH Food 2022-11-06 2022-11-06 1 Univers ity of Worry 00:00:00 00:00:00 [place] [facility] History SDOH Food 2022-11-06 2022-11-06 1 Univers ity of Scarcity 00:00:00 00:00:00 [place] [facility] History SDOH 2022-11-06 2022-11-06 2 University o f Transport Med 00:00:00 00:00:00 [place] Medic al Branch History SDOH 2022-11-06 2022-11-06 2 University o f Transport Non-Med 00:00:00 00:00:00 [place] M edical Branch History SDOH 2022-11-06 2022-11-06 2 University o f Housing Unable to 00:00:00 00:00:00 [place] M edical Pay Branch History SDKS 2022-11-06 2022-11-06 1 University o f Housing Places 00:00:00 00:00:00 [place] Medi jose Lived Branch History SDKS 2022-11-06 2022-11-06 2 University o f Housing Homeless 00:00:00 00:00:00 [facility] dical Last Year Branch Exposure to 2022-10-25 2022-11-04 Not sure University of SARS-CoV-2 (event) 00:00:00 13:19:00 [facility] Branch History of Social 2022-10-09 2022-10-[address] function 00:00:00 00:00:00 Hospital Alcohol intake 2022-04-27 2022-04-27 Current drinker Metho dist 00:00:00 00:00:00 of alcohol Hospital (finding) Tobacco use and 2022-04-26 2022-04-26 Smokeless [facility] exposure 00:00:00 00:00:00 tobacco non-user Hospital Cigarettes smoked 2022-04-26 2022-04-[address] current (pack per 00:00:00 00:00:00 Hospita l day) - Reported Cigarette 2022-04-26 2022-04-26 [facility] pack-years 00:00:00 00:00:00 Hospital Social History 2021-02-23 2021-02-23 [facility] 20:24:04 20:24:04 Alcohol Comment 2020-03-23 2020-03-23 RARELY [facility] 00:00:00 00:00:00 Hospital Sex Ass[birth year] At [birth year] [facility] 00:00:00 00:00:00 Hospital Smoking Status Start Date Stop Date Source Unknown [facility] Never smoked tobacco [facility] Former Smoker 2022-08-11 00:00:00 2022-08-11 00:00:00 Common S pirit - CHI [facility] Ce nter Medications Ordered Filled Start Stop Current Ordering Indication Dosage Frequency Signature Comments Components Source Medication Medication Date Date Medication? Clinician (SIG) Name Name mupirocin Yes Nasal, Univer s (BACTROBAN 5-02 Q12H, For ity of NASAL OINT) 18:45: 5 days, Negrito as 2 % nasal 33 First dose Medi jose ointment conditiona Branc h l, Routine insulin Yes 30U inject 30 Unive rs lispro 100 5-02 Units ity of unit/mL 17:42: under the [place] in 52 skin in [facility] the [place] morning and 30 Units at noon and 30 Units in the evening. Sliding scale Insulin Yes 45U inject 45 Unive rs Glargine 5-02 Units ity of (LANTUS 17:42: under the [place] [facility] skin in [facility] U-100 [facility] INSULIN) morning 100 unit/mL and 45 (3 mL) Units in injection the evening. amLODIPine Yes 10mg Take 1 Unive rs 10 mg 5-02 tablet by ity of tablet 17:42: mouth in [place] [address] the Medical morning. Branch buPROPion Yes 150mg Take 1 Unive rs SR 150 mg 5-02 tablet by ity o f SR tablet 17:42: mouth in [place] [address] the Medical morning. Branch furosemide Yes 160mg Take 2 Univ ers 80 mg 5-02 tablets by ity of tablet 17:42: mouth in [place] [address] the Medical morning. Branch lisinopriL Yes 5mg Take 1 Unive rs 5 mg tablet 5-02 tablet by ity of 17:42: mouth in [place] 52 the Medical morning. Branch metoprolol Yes 50mg Take 1 Unive rs succinate 5-02 tablet by ity o f XL 50 mg 24 17:42: mouth in [place] tablet 52 the Medical morning Branch and 1 tablet in the evening. pantoprazol Yes 40mg Take 1 Univ ers e 40 mg EC 5-02 tablet by ity of tablet 17:42: mouth in [place] [address] the Medical morning. Branch Levothyroxi Yes 150ug Take 150 U nivers ne 100 mcg 5-02 mcg by ity of capsule 17:42: mouth [place] [address] daily. Medical Branch aspirin 81 0 Yes 81mg Take 81 mg U nivers mg Cap 5-02 by mouth ity of 17:42: in the [place] [address] morning. Medical Branch Cholecalcif Yes Take by Uni vers daryl, 5-02 mouth. ity of Vitamin D3, 17:42: [place] 25 [facility] 52 Medical (1,000 Branch unit) capsule folic Yes Take by Univers acid/multiv 5-02 mouth ity of it-min/lute 17:42: [place]. [place] in (CENTRUM 52 Medical SILVER Branch ORAL) vitamin Yes 100ug Take 1 Univers B-12 100 5-02 tablet by ity of mcg tablet 17:42: mouth [place] [address] every Medical morning. Branch loratadine Yes Univers 10 mg 5-02 ity of tablet 17:42: [place] [address] Medical Branch multivitami 0 Yes Take by Uni vers n (MULTIPLE 5-02 mouth. ity of VITAMIN 17:42: [place] ESSENTIAL 52 Medical ORAL) Branch fenofibrate Yes 200mg Take 1 Uni vers micronized 5-02 capsule by ity of 200 mg 17:42: mouth. [place] capsule 52 Medical Branch polyethylen 0 Yes 17g Take 1 Univ ers e glycol 5-02 Packet by ity of 3350 17 17:42: mouth. [place] gram powder Medical Branch clopidogreL 0 Yes 75mg Take 1 Univ ers (PLAVIX) 75 5-02 tablet by ity of mg tablet 17:42: [place] 52 the Medical morning. Branch insulin 0 Yes 30U inject 30 Unive rs lispro 100 5-02 Units ity of unit/mL 17:42: under the [place] inph 52 skin in Medical the Branch morning and 30 Units at noon and 30 Units in the evening. Sliding scale Insulin 2022-0 Yes 45U inject 45 Unive rs Glargine 5-02 Units ity of (LANTUS 17:42: under the [place] SOLOSTAR 52 skin in [facility] U-100 the Branch INSULIN) morning 100 unit/mL and 45 (3 mL) Units in injection the evening. amLODIPine 2022-0 Yes 10mg Take 1 Unive rs 10 mg 5-02 tablet by ity of tablet 17:42: mouth in [place] [address] the Medical morning. Branch buPROPion 0 Yes 150mg Take 1 Unive rs SR 150 mg 5-02 tablet by ity o f SR tablet 17:42: mouth in [place] [address] the Medical morning. Branch furosemide 0 Yes 160mg Take 2 Univ ers 80 mg 5-02 tablets by ity of tablet 17:42: mouth in [place] [address] the Medical morning. Branch lisinopriL 0 Yes 5mg Take 1 Unive rs 5 mg tablet 5-02 tablet by ity of 17:42: mouth in [place] [address] the Medical morning. Branch metoprolol 0 Yes 50mg Take 1 Unive rs succinate 5-02 tablet by ity o f XL 50 mg 24 17:42: mouth in [place] hr tablet 52 the Medical morning Branch and 1 tablet in the evening. pantoprazol 0 Yes 40mg Take 1 Univ ers e 40 mg EC 5-02 tablet by ity of tablet 17:42: mouth in [place] [address] the Medical morning. Branch Levothyroxi Yes 150ug Take 150 U nivers ne 100 mcg 5-02 mcg by ity of capsule 17:42: mouth [place] [address] daily. Medical Branch aspirin 81 2022-0 Yes 81mg Take 81 mg U nivers mg Cap 5-02 by mouth ity of 17:42: in the [place] [address] morning. Medical Branch Cholecalcif 0 Yes Take by Uni vers daryl, 5-02 mouth. ity of Vitamin D3, 17:42: [place] 25 [facility] Medical (1,000 Branch unit) capsule folic 2022-0 Yes Take by Univers acid/multiv 5-02 mouth ity of it-min/lute 17:42: [place]. [place] in (CENTRUM 52 Medical SILVER Branch ORAL) vitamin Yes 100ug Take 1 Univers B-12 100 5-02 tablet by ity of mcg tablet 17:42: mouth [place] [address] every Medical morning. Branch loratadine Yes Univers 10 mg 5-02 ity of tablet 17:42: [place] [address] Medical Branch multivitami Yes Take by Uni vers n (MULTIPLE 5-02 mouth. ity of VITAMIN 17:42: [place] ESSENTIAL Medical ORAL) Branch fenofibrate Yes 200mg Take 1 Uni vers micronized 5-02 capsule by ity of 200 mg 17:42: mouth. [place] capsule [address] [place] [address] Branch polyethylen Yes 17g Take 1 Univ ers e glycol 5-02 Packet by ity of 3350 17 17:42: mouth. [place] gram powder Medical Branch clopidogreL Yes 75mg Take 1 Univ ers (PLAVIX) 75 5-02 tablet by ity of mg tablet 17:42: mouth in [place] [address] the Medical morning. Branch mupirocin 2 Yes [id number] .5g Use 0.5 g Univers % nasal 5-02 in each ity of ointment 00:00: nostril [place] [address] every 12 Medical (twelve) Branch hours. mupirocin 2 Yes [id number] .5g Use 0.5 g Univers % nasal 5-02 in each ity of ointment 00:00: nostril [place] 00 every 12 Medical (twelve) Branch hours. atorvastati 2022- Yes [id number] 40mg Take 1 Univers n 40 mg 5-02 06-02 tablet by ity of tablet 00:00: 04:59 mouth at [place] 00 :00 bedtime Medical for 30 Branch days. atorvastati 2022- Yes [id number] 40mg Take 1 Univers n 40 mg 5-02 06-02 tablet by ity of tablet 00:00: 04:59 mouth at [place] 00 :00 bedtime Medical for 30 Branch days. mupirocin Yes [id number] Uni vers (BACTROBAN - ity of OINT) 2 % 19:00: [place] skin 00 Medical ointment Branch heparin 202- No [id number] 4600U DIALYSIS Univers 1,000 5-01 05-01 ONCE - PT ity of unit/mL 15:15: 16:26 ROOM, 1 [place] injection 00 :00 dose, On Medica l 4,600 Units 11/06/22 Br anch at 1015, Routine
A port : 2.3 ml V port : 2.3 ml To verónica: 4.6 ml
sulfur 0 2022- No [id number] 5mL 5 mL, Unive rs hexafluorid 30 04-30 Intravenou i ty of e microsphr 15:15: 15:15 s, ONCE, 1 [place] (LUMASON) 00 :00 dose, On Medica l injection 5 Sun Branch mL 11/05/22 at 1015, Routine
crew member approving Restricted medication : KIMBERLY TORRES polyethylen Yes 17g 17 g, Unive rs e glycol 4-30 Oral, ity of 3350 powder 14:00: [facility] First dose Medical on [facility] 11/05/22 at 0900, Until Discontinu ed, Routine pantoprazol Yes 40mg 40 mg, Univ ers e 4-30 Oral, ity of (PROTONIX) 14:00: DAILY, [place] EC tablet 00 First dose Medi joes 40 mg on [facility] 11/05/22 at 0900, Until Discontinu ed, Routine lisinopriL Yes 5mg 5 mg, Univer s (PRINIVIL,Z 4-30 Oral, ity of ESTRIL) 14:00: DAILY, [place] tablet 5 mg 00 First dose Me dical on [facility] 11/05/22 at 0900, Until Discontinu ed, Routine furosemide 0 Yes 160mg 160 mg, Uni vers (LASIX) [...] at 0900, Until Discontinu ed, Routine buPROPion 2023-0 Yes 150mg 150 mg, Univ ers SR [...] Yes 800mg 800 mg, Univ ers (RENVELA) 430 Oral, TID ity o f tablet 800 13:00: MEALS, [place] mg 00 First dose Medical on [facility] 11/05/22 at 0800, Until Discontinu ed, Routine psyllium Yes 1{packe 1 Packet, U nivers husk 4-30 t} Oral, BID, ity of (METAMUCIL 13:00: First dose [place] (SUGAR 00 on [facility] FREE)) 3.4 11/05/22 at [facility] gram oral 0800, powder Until packet 1 Discontinu Packet ed, Routine cholecalcif Yes 2000U 2,000 Univ ers daryl 4-30 Units, ity of (vitamin 13:00: Oral, BID [place] D3) tablet 00 MEALS, Medical 2,000 Units First dose Br anch on [place] 11/05/22 at 0800, Until Discontinu ed glucagon [...] at 0600, Until Discontinu ed, Routine heparin 2022-0 Yes 5000U 5,000 Univers (porcine) 4-30 Units, ity of injection 03:00: [place]o [place] 5,000 Units 00 us, Q8H, Medi jose First dose Branch on 11/04/22 at 2200, Until Discontinu ed, Routine ondansetron Yes 4mg 4 mg, Slow Univers (ZOFRAN 4-30 IV Push, ity of (PF)) 02:39: Q6HPRN, [place] injection 4 30 Nausea and Me dical mg Vomiting Branch (N/V), Starting on 11/04/22 at 213
Do ses of ondansetro n 16 mg and above need to be administer ed via IV piggyback. For Dose >=24mg ECG monitoring is advisable.
KCL 2022-0 2022- No 40meq 40 mEq, Univers (KLOR-CON 4-30 [...] Discontinu ed, Routine, Pain (scale 7-10) traMADoL 0 Yes 50mg 50 mg, Univers (ULTRAM) 4-30 Oral, ity of tablet 50 02:03: Q6HPRN, [place] mg 11 Starting Medical on [facility] Branch 11/04/22 at 2103, Until Discontinu ed, Routine, Pain (scale 4-6) atorvastati Yes 40mg 40 mg, Univ ers n (LIPITOR) 4-30 Oral, QHS, it y of tablet 40 02:00: First dose [place] mg 00 on [facility] Medical 11/04/22 at Branch 2100, Until Discontinu ed, Routine metoprolol Yes 50mg 50 mg, Unive rs succinate 30 Oral, BID, ity of XL (TOPROL 01:45: First dose [place] XL) tablet 00 on [facility] Medical 50 mg 11/04/22 at Branch 2045, Until Discontinu ed, Routine potassium 2022- No 10meq 10 mEq, IV Univers chloride in 11-04 Piggyback, i ty of water 10 22:15: 00:08 ONCE, 1 [place] mEq/100 mL 00 :00 dose, On Medic al RTU 10 mEq [facility] 11/04/22 at 1715, Administer over 60 Minutes, 100 mL acetaminoph Yes 650mg 650 mg, Un hellen en 11-04 Oral, ity of (TYLENOL) 21:56: Q6HPRN, [place] tablet 650 18 Starting Medic al mg on [facility] 11/04/22 at 1656, Until Discontinu ed, Routine, Pain (scale 1-3) KCL 2022- No 20meq 20 mEq, Univers (KLOR-CON 11-04 Oral, ity of M20) tablet 21:30: 22:08 ONCE, 1 [place] 20 mEq 00 :00 dose, On Medical [facility] 11/04/22 at 1630, VIOLETTA FENTanyl PF 2022-2022- No 25ug 25 mcg, Un hellen (SUBLIMAZE 11-04 Slow IV ity o f (PF)) 20:45: 20:53 Push, [place] injection 00 :00 ONCE, 1 Medical 25 mcg dose, On Branch [facility] 11/04/22 at 1545, STAT sevelamer Yes 3200mg Take 4 Univ ers 800 mg 1-03 tablets by ity of tablet 00:00: mouth. [address] sevelamer 0 Yes 3200mg Take 4 Univ ers 800 mg 1-03 tablets by ity of tablet 00:00: mouth. [address] buPROPion 2021-07 Yes 150mg Q.5D Take [...] 2021-07 Yes 2000U QD Take 2,000 Methodi adryl, 0-[address] vitamin D3, 12:56: [...] 33 :00 needed for l heartburn. traMADoL 2021-0728 50mg Q8H Take 1 Metho [...] to 5 days .acute pain. traMADoL 2021-07 [id number] 50mg Q8H Take 1 Metho di (Ultram) 50 0-19 10-25 tablet (50 s t mg tablet 00:00: 04:59 mg total) Ho spita 00 :00 by mouth l every 8 (eight) hours as needed for moderate pain for up to 5 days .acute pain. traMADoL 2021-07 [id number] 50mg Q8H Take 1 Metho di (Ultram) 50 0-19 10-25 tablet (50 s t mg tablet 00:00: 04:59 mg total) Ho spita 00 :00 by mouth l every 8 (eight) hours as needed for moderate pain for up to 5 days .acute pain. traMADoL 2021-07 [id number] 50mg Q8H Take 1 Metho di (Ultram) 50 0-19 10-25 tablet (50 s t mg tablet 00:00: 04:59 mg total) [facility]ita 00 :00 by mouth l every 8 (eight) hours as needed for moderate pain for up to 5 days .acute pain. traMADoL 2021-07 [id number] 50mg Q8H Take 1 Metho di (Ultram) 50 0-19 10-25 tablet (50 s t mg tablet 00:00: 04:59 mg total) [facility] 00 :00 by mouth l every 8 (eight) hours as needed for moderate pain for up to 5 days .acute pain. traMADoL 2021-07 [id number] 50mg Q8H Take 1 Metho di (Ultram) 50 0-19 10-25 tablet (50 s t mg tablet 00:00: 04:59 mg total) [facility] 00 :00 by mouth l every 8 (eight) hours as needed for moderate pain for up to 5 days .acute pain. traMADoL 2021-07 [id number] 50mg Q8H Take 1 Metho di (Ultram) 50 0-19 10-25 tablet (50 s t mg tablet 00:00: 04:59 mg total) [facility] spita 00 :00 by mouth l every 8 (eight) hours as needed for moderate pain for up to 5 days .acute pain. traMADoL 2021-07 16653 50mg Q8H Take 1 Metho di (Ultram) [...] tena 00 by mouth l nightly. famotidine 2022-1 Yes 40mg QD Take 1 Metho di [...] st (CIPRO) 250 00:00: 00:00 MOUTH [facility] tablet 00 :00 TWICE l DAILY [...] TWICE l DAILY UNTIL ALL TAKEN. traMADoL 56069 50mg Q8H Take 1 Metho di (Ultram) [...] up to 5 days .acute pain. traMADoL 95097 50mg Q8H Take 1 Metho di (Ultram) 50 -06 04-04 tablet (50 s t mg tablet 00:00: [...] Q8H Take 1 Metho di (Ultram) 50 8- 09-04 tablet (50 s t mg tablet 00:00: 04:59 mg total) [facility] spita 00 :00 by mouth l every 8 (eight) hours as needed for moderate pain for up to 5 days .acute pain. traMADoL 2022-0 2022- [place] [id number] 50mg Q8H Take 1 Metho di (Ultram) 50 8- 09-04 tablet (50 s t mg tablet 00:00: 04:59 mg total) [facility] spita 00 :00 by mouth l every 8 (eight) hours as needed for moderate pain for up to 5 days .acute pain. traMADoL 2021- No [id number] 50mg Q8H Take 1 Metho di (Ultram) 50 8- 09-04 tablet (50 s t mg tablet 00:00: 04:59 mg total) [facility]ita 00 :00 by mouth l every 8 (eight) hours as needed for moderate pain for up to 5 days .acute pain. traMADoL 2021- No [id number] 50mg Q8H Take 1 Metho di (Ultram) 50 8- 09-04 tablet (50 s t mg tablet 00:00: 04:59 mg total) [facility]ita 00 :00 by mouth l every 8 (eight) hours as needed for moderate pain for up to 5 days .acute pain. traMADoL 2021- No [id number] 50mg Q8H Take 1 Metho di (Ultram) 50 8- 09-04 tablet (50 s t mg tablet 00:00: 04:59 mg total) [facility]ita 00 :00 by mouth l every 8 (eight) hours as needed for moderate pain for up to 5 days .acute pain. traMADoL 2021- No [id number] 50mg Q8H Take 1 Metho di (Ultram) 50 8-04 tablet (50 s t mg tablet 00:00: [...] daily. For l 2 more days busPIRone 2022-0 Yes [facility] (BUSPAR) 5 5-20 st MG tablet 00:00: Hospita 00 l busPIRone 2022-0 Yes [facility] (BUSPAR) 5 5-20 st MG tablet 00:00: Hospita 00 l busPIRone 2022-0 Yes [facility] (BUSPAR) 5 5-20 st MG tablet 00:00: Hospita 00 l busPIRone 2022-0 Yes [facility] (BUSPAR) 5 5-20 st MG tablet 00:00: Hospita 00 l busPIRone 2022-0 Yes [facility] (BUSPAR) 5 5-20 st MG tablet 00:00: Hospita 00 l busPIRone 2022-0 Yes [facility] (BUSPAR) 5 5-20 st MG tablet 00:00: Hospita 00 l busPIRone 2022-0 Yes [facility] (BUSPAR) 5 5-20 st MG tablet 00:00: Hospita 00 l busPIRone 2022-0 Yes [facility] (BUSPAR) 5 5-20 st MG tablet 00:00: Hospita 00 l busPIRone 2022-0 Yes [facility] (BUSPAR) 5 5-20 st MG tablet 00:00: Hospita 00 l busPIRone 2022-0 Yes [facility] (BUSPAR) 5 5-20 st MG [...] 3.4 gram 00:00: Hospita packet 00 l docusate 2021-0 Yes 100mg Take 1 Univer s (COLACE) 3-19 capsule by ity o f 100 mg 00:00: mouth. [place] capsule 00 Medical Branch psyllium 2021-0 Yes [...] SINGLES) Branch 3.4 gram oral powder packet Adult 0 Yes 325 mg = 1 [...] 0 Jacob n tablet 00 Refill(s) Adult 2021-0 Yes 325 mg = 1 Memori a [...] Silver 8-18 0 l Ultra 20:29: Refill(s) [place] Claritin Yes 10 mg = 1 Jairo frida 8-18 tab, PO, l 20:29: Daily, PRN [place] 00 Itching / rash / allergy symptoms, # 20 tab, 0 Refill(s) Stool Yes PO, [facility] Softener 8-18 Bedtime, 0 l with 20:29: Refill(s) [place] Laxative aspirin-ome No 1 tab, PO, [facility]oria prazole 325 8-18 Daily, 0 l mg-40 mg 20:29: Refill(s) Herm joss oral 00 delayed release tablet Centrum Yes PO, Daily, Jairo frida Silver 8-18 0 l Ultra 20:29: Refill(s) [place] Claritin Yes 10 mg = 1 Jairo frida 8-18 tab, PO, l 20:29: Daily, PRN [place] 00 Itching / rash / allergy symptoms, # 20 tab, 0 Refill(s) Stool Yes PO, [facility] Softener 8-18 Bedtime, 0 l with 20:29: Refill(s) [place] Laxative aspirin-ome No 1 tab, PO, [facility] prazole 325 8-18 Daily, 0 l mg-40 mg 20:29: Refill(s) [facility] joss oral 00 delayed release tablet Centrum Yes PO, Daily, Jairo frida Silver 8-18 0 l Ultra 20:29: Refill(s) [place] Claritin Yes 10 mg = 1 Jairo frida 8-18 tab, PO, l 20:29: Daily, PRN [place] 00 Itching / rash / allergy symptoms, # 20 tab, 0 Refill(s) Stool Yes PO, [facility] Softener 8-18 Bedtime, 0 l with 20:29: Refill(s) [place] Laxative aspirin-ome No 1 tab, PO, [facility]oria prazole 325 8-18 Daily, 0 l mg-40 mg 20:29: Refill(s) [facility] j[place] oral 00 delayed release tablet Centrum Yes PO, Daily, Jairo frida Silver 8-18 0 l Ultra 20:29: Refill(s) [place] Claritin Yes 10 mg = 1 Jairo frida 8-18 tab, PO, l 20:29: Daily, PRN [place] 00 Itching / rash / allergy symptoms, # 20 tab, 0 Refill(s) Stool Yes PO, Memoria Softener 8-18 Bedtime, 0 l with 20:29: Refill(s) [place] Laxative aspirin-ome No 1 tab, PO, [facility] prazole 325 8-18 Daily, 0 l mg-40 mg 20:29: Refill(s) [facility] j[place] oral 00 delayed release tablet Centrum Yes PO, Daily, Jairo frida Silver 8-18 0 l Ultra 20:29: Refill(s) [place] Claritin Yes 10 mg = 1 Jairo frida 8-18 tab, PO, l 20:29: Daily, PRN [place] 00 Itching / rash / allergy symptoms, # 20 tab, 0 Refill(s) Stool Yes PO, Memoria Softener 8-18 Bedtime, 0 l with 20:29: Refill(s) [place] Laxative aspirin-ome No 1 tab, PO, [facility] prazole 325 8-18 Daily, 0 l mg-40 mg 20:29: Refill(s) [facility] joss oral 00 delayed release tablet Centrum Yes PO, Daily, Jairo frida Silver 8-18 0 l Ultra 20:29: Refill(s) [place] Claritin Yes 10 mg = 1 Jairo frida 8-18 tab, PO, l 20:29: Daily, PRN [place] 00 Itching / rash / allergy symptoms, # 20 tab, 0 Refill(s) Stool Yes PO, Memoria Softener 8-18 Bedtime, 0 l with 20:29: Refill(s) [place] Laxative aspirin-ome No 1 tab, PO, [facility] prazole 325 8-18 Daily, 0 l mg-40 mg 20:29: Refill(s) [facility] joss oral 00 delayed release tablet Centrum Yes PO, Daily, Jairo frida Silver 8-18 0 l Ultra 20:29: Refill(s) [place] Claritin Yes 10 mg = 1 Jairo frida 8-18 tab, PO, l 20:29: Daily, PRN [place] 00 Itching / rash / allergy symptoms, # 20 tab, 0 Refill(s) Stool Yes PO, Memoria Softener 8-18 Bedtime, 0 l with 20:29: Refill(s) [place] Laxative aspirin-ome No 1 tab, PO, [facility]oria prazole 325 8-18 Daily, 0 l mg-40 mg 20:29: Refill(s) [facility] joss oral 00 delayed release tablet Centrum Yes PO, Daily, Jairo frida Silver 8-18 0 l Ultra 20:29: Refill(s) [place] Claritin Yes 10 mg = 1 Jairo frida 8-18 tab, PO, l 20:29: Daily, PRN [place] 00 Itching / rash / allergy symptoms, # 20 tab, 0 Refill(s) Stool Yes PO, Memoria Softener 8-18 Bedtime, 0 l with 20:29: Refill(s) [place] Laxative aspirin-ome No 1 tab, PO, [facility] prazole 325 8-18 Daily, 0 l mg-40 mg 20:29: Refill(s) [place] oral 00 delayed release tablet Centrum Yes PO, Daily, Jairo frida Silver 8-18 0 l Ultra 20:29: Refill(s) [place] Claritin Yes 10 mg = 1 Jairo frida 8-18 tab, PO, l 20:29: Daily, PRN [place] 00 Itching / rash / allergy symptoms, # 20 tab, 0 Refill(s) Stool Yes PO, Mem[facility] Softener 8-18 Bedtime, 0 l with 20:29: Refill(s) [place] Laxative aspirin-ome No 1 tab, PO, [facility]oria prazole 325 8-18 Daily, 0 l mg-40 mg 20:29: Refill(s) [place] oral 00 delayed release tablet Centrum Yes PO, Daily, Jairo frida Silver 8-18 0 l Ultra 20:29: Refill(s) [place] Claritin Yes 10 mg = 1 Jairo frida 8-18 tab, PO, l 20:29: Daily, PRN [place] 00 Itching / rash / allergy symptoms, # 20 tab, 0 Refill(s) Stool Yes PO, Memoria Softener 8-18 Bedtime, 0 l with 20:29: Refill(s) [place] Laxative aspirin-ome No 1 tab, PO, [facility] prazole 325 8-18 Daily, 0 l mg-40 mg 20:29: Refill(s) [facility] joss oral 00 delayed release tablet Centrum Yes PO, Daily, Jairo frida Silver 8-18 0 l Ultra 20:29: Refill(s) [place] Claritin Yes 10 mg = 1 Jairo frida 8-18 tab, PO, l 20:29: Daily, PRN [place] 00 Itching / rash / allergy symptoms, # 20 tab, 0 Refill(s) Stool Yes PO, [facility] Softener 8-18 Bedtime, 0 l with 20:29: Refill(s) [place] Laxative cephalexin Yes 500 mg = 1 M emoria 500 mg oral 8-18 cap, PO, l capsule 20:28: QID, # 20 Macey nn 00 cap, 0 Refill(s) furosemide Yes 80 mg = 1 Me moria 80 mg oral 8-18 tab, PO, l tablet 20:28: Daily, # [place] 00 90 tab, 0 Refill(s) Insulin Yes 1 unit, Mem[facility] Lispro 100 8-18 SUB-Q, 0 l UNT/ML 20:28: Refill(s) Ajcob n Injectable 00 Solution [Humalog] cephalexin 0 [...] tab, PO, l tablet 20:28: Daily, # [place] 00 90 tab, 0 Refill(s) Insulin 0 [...] tab, PO, l tablet 20:28: Daily, # [place] 00 90 tab, 0 Refill(s) Insulin 0 [...] tab, PO, l tablet 20:28: Daily, # [place] 00 90 tab, 0 Refill(s) Insulin 0 [...] tab, PO, l tablet 20:28: Daily, # [place] 00 90 tab, 0 Refill(s) Insulin 0 [...] tab, PO, l tablet 20:28: Daily, # [place] 00 90 tab, 0 Refill(s) Insulin 0 [...] tab, PO, l tablet 20:28: Daily, # [place] 00 90 tab, 0 Refill(s) Insulin 0 [...] tab, PO, l tablet 20:27: Daily, # [place] 00 90 tab, 1 Refill(s) Metoprolol 2020-0 [...] tab, PO, l tablet 20:27: Daily, # [place] 00 90 tab, 1 Refill(s) Metoprolol Yes [...] tab, PO, l tablet 20:27: Daily, # [place] 00 90 tab, 1 Refill(s) Metoprolol Yes [...] tab, PO, l tablet 20:27: Daily, # [place] 00 90 tab, 1 Refill(s) Metoprolol 0 [...] tab, PO, l tablet 20:27: Daily, # [place] 00 90 tab, 1 Refill(s) Metoprolol Yes [...] tab, PO, l tablet 20:27: Daily, # [place] 00 90 tab, 1 Refill(s) Metoprolol Yes 25 mg = 1 Me moria Succinate 8-18 tab, PO, l ER 25 mg 20:27: Daily, # Macey nn oral 00 90 tab, 0 tablet, Refill(s) extended release levothyroxi Yes 150 Memori a ne 150 mcg 8-18 microgram l (0.15 mg) 20:27: = 1 tab, Herm joss oral tablet 00 PO, Daily, # 30 tab, 0 Refill(s) lisinopril Yes 5 mg = 1 Mem oria 5 mg oral 8-18 tab, PO, l tablet 20:27: Daily, # [place] 00 90 tab, 1 Refill(s) Metoprolol Yes 25 mg = 1 Me moria Succinate 8-18 tab, PO, l ER 25 mg 20:27: Daily, # [place] nn oral 00 90 tab, 0 tablet, Refill(s) extended release tramadol Yes 50 mg = 1 Jairo frida hydrochlori 8-18 tab, PO, l de 50 MG 20:27: BID, # 30 Herm joss Oral Tablet 00 tab, 0 Refill(s) tramadol Yes 50 mg = 1 Jairo [...] (PF)) Discontinu injection ed, Routine, Intra-op DUOVISC 0 Yes PRN, Univers (DUOVISC 4-08 Starting ity of VISCO 17:26: Krystle 10/14/20 [...] ity of no.2 irrig. 17:25: Krystle 10/14/20 [place] (BSS) 00 at 1225, Medical ophthalmic Until Branch solution Discontinu ed, Routine, Intra-op insulin Yes 30U inject 30 Unive rs lispro 4-08 Units ity of (HUMALOG 14:34: under the [facility] DESTIN 02 skin 3 Medical KWIKPEN (three) [...] by mouth ity of tablet 14:34: daily. [place] [address] Medical Branch buPROPion Yes 150mg Take 150 Uni vers SR 150 mg 4-08 mg by ity of SR tablet 14:34: mouth [place] daily. Medical Branch furosemide Yes 160mg Take 160 Un hellen 80 mg 4-08 mg by ity of tablet 14:34: mouth [place] daily. Medical Branch lisinopriL Yes 5mg Take 5 mg Un hellen 5 mg tablet 4-08 by mouth ity of 14:34: daily. [place] [facility] metoprolol Yes 50mg Take 50 mg U nivers succinate 4-08 by mouth 2 ity of XL 50 mg 24 14:34: (two) [place] hr tablet 02 times Medical daily. Branch pantoprazol Yes 40mg Take 40 mg Univers e 40 mg EC 4-08 by mouth ity o f tablet 14:34: daily. [place] [facility] Levothyroxi Yes 150ug Take 150 U nivers ne 100 mcg 4-08 mcg by ity of capsule 14:34: mouth daily. Medical Branch aspirin 325 Yes 325mg Take 325 U nivers mg tablet 4-08 mg by ity of 14:34: mouth daily. Medical Branch Cholecalcif Yes Take by Uni vers daryl, 4-08 mouth. ity of Vitamin D3, 14:34: [place] (VITAMIN [facility] D3) 25 mcg [place] (1,000 unit) capsule folic Yes Take by Univers acid/multiv 4-08 mouth ity of it-min/lute 14:34: daily. Jonelle aleman in (CENTRUM 02 [facility] ORAL) mydriatic 2020- No .5mL 0.5 mL, [...] 1,000 mL 00 :00 IV Medical Infusion, [place] ONCE, 1 dose, Krystle 10/14/20 at 0745, Routine, DSU Pre-op insulin Yes 30U inject 30 Unive rs lispro 4-08 Units ity of (HUMALOG 09:34: under the Jonelle aleman DESTIN 02 skin 3 Medical KWIKPEN (three) [...] 4-08 by mouth ity of 09:34: daily. [place] [facility] metoprolol Yes 50mg Take 50 [...] ity of Vitamin D3, 09:34: [place] (VITAMIN 02 Medical D3) 25 mcg Branch (1,000 unit) capsule folic Yes Take by Univers acid/multiv 4-08 mouth ity of it-min/lute 09:34: daily. Jonelle aleman in (CENTRUM 02 Medical SILVER Branch ORAL) insulin 2019-07 Yes 30U [id number] Inject 30 [facility] lispro 1-[id number] (HumaLOG 00:00: 3D under the [facility] U-100 00 skin 3 l Insulin) (three) 100 unit/mL times a injection day before meals. insulin 2020-1 Yes 30U [id number] Inject 30 [facility] lispro 1-[id number] (HumaLOG 00:00: 3D under the [facility] U-100 00 skin 3 l Insulin) (three) 100 unit/mL times a injection day before meals. insulin 2020-1 Yes 30U [id number] Inject 30 [facility] lispro 1-[id number] (HumaLOG 00:00: 3D under the [facility] U-100 00 skin 3 l Insulin) (three) 100 unit/mL times a injection day before meals. insulin 2020-1 Yes 30U [id number] Inject 30 [facility] lispro 1-[id number] (HumaLOG 00:00: 3D under the [facility] U-100 00 skin 3 l Insulin) (three) 100 unit/mL times a injection day before meals. insulin 2020-1 Yes 30U [id number] Inject 30 [facility] lispro 1-[id number] (HumaLOG 00:00: 3D under the [facility] U-100 00 skin 3 l Insulin) (three) 100 unit/mL times a injection day before meals. insulin 2020-1 Yes 30U [id number] Inject 30 [facility] lispro 1-[id number] (HumaLOG 00:00: 3D under the [facility] U-100 00 skin 3 l Insulin) (three) 100 unit/mL times a injection day before meals. insulin 2020-1 Yes 30U [id number] Inject 30 [facility] lispro 1-[id number] (HumaLOG 00:00: 3D under the [facility] U-100 00 skin 3 l Insulin) (three) 100 unit/mL times a injection day before meals. insulin 2020-1 Yes 30U [id number] Inject 30 [facility] lispro 1-[id number] (HumaLOG 00:00: 3D under the [facility] U-100 00 skin 3 l Insulin) (three) 100 unit/mL times a injection day before meals. insulin 2020-1 Yes 30U [id number] Inject 30 [facility] lispro 1-[id number] (HumaLOG 00:00: 3D under the [facility] U-100 00 skin 3 l Insulin) (three) 100 unit/mL times a injection day before meals. insulin 2020-1 Yes 30U [id number] Inject 30 [facility] lispro 1-[id number] (HumaLOG 00:00: 3D under the [facility] U-100 00 skin 3 l Insulin) (three) 100 unit/mL times a injection day before meals. folic 2020-0 Yes Take by Univers acid/multiv 9-24 mouth ity of it-min/lute 16:37: [place]. [place] (CENTR 58 Medical SILVER Branch ORAL) insulin 2020-0 Yes 30U inject 30 Unive rs lispro 9-24 Units ity of (HUMALOG 16:37: under the [facility] DESTIN 58 skin 3 Medical KWIKPEN (three) [...] by mouth ity of tablet 16:37: daily. [place] [address] Medical Branch buPROPion 2020-0 Yes 150mg Take [...] by mouth ity of tablet 16:37: daily. [place] [address] Medical Branch metoprolol 2020-0 Yes 50mg Take 50 mg U nivers succinate 9-24 by mouth 2 ity of XL 50 mg 24 16:37: (two) [place] hr tablet 58 times Medical daily. Branch pantoprazol 2020-0 Yes 40mg Take 40 mg Univers e 40 mg EC 9-24 by mouth ity o f tablet 16:37: daily. [place] [address] Medical Branch Levothyroxi 2020-0 Yes 150ug Take [...] ity of Vitamin D3, 16:37: [place] (VITAMIN [address] [place] [address] D3) 25 mcg [place] (1,000 unit) capsule folic 2020-0 Yes Take by Univers acid/multiv 9-24 mouth ity of it-min/lute 16:37: [facility] Medical SILVER Branch ORAL) insulin 2020-0 Yes 30U inject 30 Unive rs lispro 9-24 Units ity of (HUMALOG 16:37: under the [facility] s DESTIN 58 skin 3 Medical [...] by mouth ity of tablet 16:37: daily. [place] [address] Medical Branch buPROPion 2020-0 Yes 150mg Take [...] by mouth ity of tablet 16:37: daily. [place] [address] Medical Branch metoprolol 2020-0 Yes 50mg Take 50 mg U nivers succinate 9-24 by mouth 2 ity of XL 50 mg 24 16:37: (two) [place] hr tablet 58 times Medical daily. Branch pantoprazol 2020-0 Yes 40mg Take 40 mg Univers e 40 mg EC 9-24 by mouth ity o f tablet 16:37: daily. [place] [address] Medical Branch Levothyroxi 2020-0 Yes 150ug Take [...] ity of Vitamin D3, 16:37: [place] (VITAMIN Medical D3) 25 mcg Branch (1,000 unit) capsule folic 2020-0 Yes Take by Univers acid/multiv 9-24 mouth ity of it-min/lute 16:37: [facility]. [facility] Medical SILVER Branch ORAL) insulin 2020-0 Yes 30U inject 30 Unive rs lispro 9-24 Units ity of (HUMALOG 16:37: under the [facility] s DESTIN 58 skin 3 Medical [...] by mouth ity of tablet 16:37: daily. [place] [address] Medical Branch buPROPion 2020-0 Yes 150mg Take [...] by mouth ity of tablet 16:37: daily. [place] [address] Medical Branch metoprolol 2020-0 Yes 50mg Take 50 mg U nivers succinate 9-24 by mouth 2 ity of XL 50 mg 24 16:37: (two) [place] hr tablet 58 times Medical daily. Branch pantoprazol 2020-0 Yes 40mg Take 40 mg Univers e 40 mg EC 9-24 by mouth ity o f tablet 16:37: daily. [place] [address] Medical Branch Levothyroxi 2020-0 Yes 150ug Take [...] ity of Vitamin D3, 16:37: [place] (VITAMIN [address] [place] [address] D3) 25 mcg Branch (1,000 unit) capsule folic 2020-0 Yes Take by Univers acid/multiv 9-24 mouth ity of it-min/lute 16:37: daily. [place] (CENTRUM 58 Medical SILVER Branch ORAL) insulin 2020-0 Yes 30U inject 30 Unive rs lispro 9-24 Units ity of (HUMALOG 16:37: under the [facility] DESTIN 58 skin 3 Medical KWIKPEN (three) [...] by mouth ity of tablet 16:37: daily. [place] [address] Medical Branch buPROPion 2020-0 Yes 150mg Take [...] by mouth ity of tablet 16:37: daily. [place] [address] Medical Branch metoprolol 2020-0 Yes 50mg Take 50 mg U nivers succinate 9-24 by mouth 2 ity of XL 50 mg 24 16:37: (two) [place] hr tablet 58 times Medical daily. Branch pantoprazol 2020-0 Yes 40mg Take 40 mg Univers e 40 mg EC 9-24 by mouth ity o f tablet 16:37: daily. [place] 58 Medical Branch Levothyroxi 2020-0 Yes 150ug Take [...] of Vitamin D3, 16:37: [place] (VITAMIN 58 [facility] D3) 25 mcg Branch (1,000 unit) capsule insulin 2020-0 Yes 30U inject 30 Unive rs lispro 9-24 Units ity of (HUMALOG 13:50: under the [facility] s DESTIN 18 skin 3 Medical [...] by mouth ity of tablet 13:50: daily. [place] 18 Medical Branch buPROPion 2020-0 Yes 150mg [...] by mouth ity of tablet 13:50: daily. [place] 18 Medical Branch metoprolol 2020-0 Yes 50mg Take 50 mg U nivers succinate 9-24 by mouth 2 ity of XL 50 mg 24 13:50: (two) [place] hr tablet 18 times Medical daily. Branch pantoprazol 2020-0 Yes 40mg Take 40 mg Univers e 40 mg EC 9-24 by mouth ity o f tablet 13:50: daily. [place] 18 Medical Branch Levothyroxi 2020-0 Yes 150ug Take [...] ity of Vitamin D3, 13:50: [place] (VITAMIN [address] [place] [address] D3) 25 mcg [place] (1,000 unit) capsule folic 2020-0 Yes Take by Univers acid/multiv 9-24 mouth ity of it-min/lute 13:50: [facility]. [facility] Medical SILVER Branch ORAL) insulin 2020-0 Yes 30U inject 30 Unive rs lispro 9-24 Units ity of (HUMALOG 13:50: under the [facility] DESTIN 18 skin 3 Medical KWIKPEN (three) [...] by mouth ity of tablet 13:50: daily. [place] [address] Medical Branch buPROPion 2020-0 Yes 150mg Take [...] by mouth ity of tablet 13:50: daily. [place] [address] Medical Branch metoprolol 2020-0 Yes 50mg Take 50 mg U nivers succinate 9-24 by mouth 2 ity of XL 50 mg 24 13:50: (two) [place] hr tablet 18 times Medical daily. Branch pantoprazol 2020-0 Yes 40mg Take 40 mg Univers e 40 mg EC 9-24 by mouth ity o f tablet 13:50: daily. [place] [address] Medical Branch Levothyroxi 2020-0 Yes 150ug Take [...] ity of Vitamin D3, 13:50: [place] (VITAMIN [address] [place] [address] D3) 25 mcg Branch (1,000 unit) capsule [...] Until Discontinu ed, Routine, PACU propofoL IV 2019-0 2020- No Intravenou Univers infusion 04-01-24 s, [...] Krystle 04/01/20 at 0833, Routine, Intra-op lidocaine 2019-0 2020- No ONCE INTRA U nivers 1% 04-01 PROCEDURE, ity of (XYLOCAINE) 13:02: 13:33 Starting [place] 100 mg/10 00 :17 Krystle Medical mL (1 %) 04/01/20 at [facility] h injection 0802, Until Krystle 04/01/20 at 0833, Routine, Intra-op remifentani 2019-0 2020- No Intravenou Univers L (ULTIVA) 04-01- s, ONCE ity o f injection 13:02: 13:33 INTRA [place] 00 :17 PROCEDURE, Medical Starting Branch [facility] 04/01/20 at 0802, Until Krystle 04/01/20 at 0833, Routine, Intra-op lidocaine 2020-0 2020- No ONCE INTRA U nivers 1% 04-01 PROCEDURE, ity of (XYLOCAINE) 13:02: 13:33 Starting [place] 100 mg/10 00 :17 Krystle Medical mL (1 %) 04/01/20 at [facility] h injection 0802, Until K[place] 04/01/20 at 0833, Routine, Intra-op remifentani 2020-0 2020- No Intravenou Univers L (ULTIVA) 04-01 s, ONCE ity o f injection 13:02: 13:33 INTRA [place] 00 :17 PROCEDURE, [facility] Starting Branch [facility] 04/01/20 at 0802, Until K[place] 04/01/20 at 0833, Routine, Intra-op lactated 2020-0 2020- No IV Univers ringers IV 04-01 Infusion, ity of infusion 13:01: 13:33 [place]UOUS [place] 00 :17 PRN, [facility] Starting Branch [facility] 04/01/20 at 0801, Until K[place] 04/01/20 at 0833, Routine, Intra-op lactated 2020-0 2020- No IV Univers ringers IV 04-01 Infusion, ity of infusion 13:01: 13:33 [place]UOUS [place] 00 :17 PRN, [facility] Starting Branch [facility] 04/01/20 at 0801, Until Krystle [...] amethasone 12:52: Krystle [place] (MAXITROL) 04/01/20 at [facility] [address] [place] [address] mg/g-10,000 Until unit/g-0.1 Discontinu % ed, ophthalmic Routine, ointment Intra-op gentamicin 2020-0 Yes PRN, Univers injection 04-01 Starting ity of 12:52: Krystle [place] 04/01/[address] Until Discontinu ed, VIOLETTA, Intra-op eye block 2020-0 Yes PRN, Univers syringe 11 04-01 Starting ity o f mL 12:51: Krystle [place] 04/01/[address] Until Discontinu ed, Intra-op EPINEPHrine 2020-0 Yes PRN, Univer s (PF) 04-01 Starting ity of 1:1,000 (1 12:51: Krystle [place] mg/mL) 04/01/20 at [facility] (ADRENALIN [address] [place] [address] (PF)) Until injection Discontinu ed, Routine, Intra-op DUOVISC 2020-0 Yes PRN, Univers (DUOVISC 04-01 Starting ity of VISCO 12:51: Krystle [place] ELASTIC) 3 04/01/20 at [facility] %-4 %(0.5 [facility], [place] mL) 1 % Until (0.55 mL) Discontinu intraocular ed, injection Routine, Intra-op dexamethaso 2020-0 Yes PRN, Univer s ne 04-01 Starting ity of (DECADRON 12:50: Krystle [place] PHOSPHATE) 04/01/20 at [facility] ica injection [address] [place] [address] Until Discontinu ed, Routine, Intra-op ceFAZolin 2020-0 Yes PRN, Univers (ANCEF) 04-01 Starting ity of injection 12:50: Krystle [place] 04/01/[address] Until Discontinu ed, VIOLETTA, Intra-op balanced 2020-0 Yes PRN, Univers salt soln 04-01 Starting ity of no.2 irrig. 12:49: Krystle [place] (BSS) 04/01/20 at [facility] ophthalmic 0749, Branch solution Until Discontinu ed, Routine, Intra-op lactated 2020-0 2020- No 1000mL at 20 Unive rs ringers IV 04-01 mL/hr, ity of [...] Q.5D Take 50 mg M ethodi succinate 9- by mouth 2 st XL 00:00: (two) [...] ferol 50 (1999 UT) (1999) MCG (1999) Metoprolol Metoprolol No Metoprolol [...] ferol 50 (1999 UT) (1999 UT) MCG (1999 UT) Sucralfate Sucralfate No 1{table BID Sucralfate 1 [...] 80 MG t} 80 MG Immunizations Ordered Filled Immunization Date Status Comments Sour e Immunization Name Name SARS-COV-2 COVID-19 2021-07-27 Completed Unive rsity of PFIZER VACCINE 00:00:00 [facility] SARS-COV-2 COVID-19 2021-07-27 Completed Unive rsity of PFIZER VACCINE 00:00:00 [facility] PFIZER COVID-19 2021-07-27 Completed [facility] MRNA VACCINATION 00:00:00 [facility] PFIZER COVID-19 2021-07-27 Completed [facility] MRNA VACCINATION 00:00:00 [facility] PFIZER COVID-19 2021-07-27 Completed [facility] MRNA VACCINATION 00:00:00 [facility] PFIZER COVID-19 2021-07-27 Completed [facility] MRNA VACCINATION 00:00:00 [facility] PFIZER COVID-19 2021-07-27 Completed [facility] MRNA VACCINATION 00:00:00 [facility] PFIZER COVID-19 2021-07-27 Completed [facility] MRNA VACCINATION 00:00:00 [facility] PFIZER COVID-19 2021-07-27 Completed [facility] MRNA VACCINATION 00:00:00 [facility] PFIZER COVID-19 2021-07-27 Completed [facility] MRNA VACCINATION 00:00:00 [facility] PFIZER COVID-19 2021-07-27 Completed [facility] MRNA VACCINATION 00:00:00 [facility] PFIZER COVID-19 2021-07-27 Completed [facility] MRNA VACCINATION 00:00:00 [facility] Influenza Virus 2021-04-20 Completed Universit y of Vaccine 00:00:00 [facility] Influenza Virus 2021-04-20 Completed Universit y of Vaccine 00:00:00 [facility] SARS-COV-2 COVID-19 2021-02-25 Completed Unive rsity of PFIZER VACCINE 00:00:00 [facility] SARS-COV-2 COVID-19 2021-02-25 Completed Unive rsity of PFIZER VACCINE 00:00:00 [facility] PFIZER COVID-19 2021-02-25 Completed [facility] VACC[facility]ATION 00:00:00 Hospital PFIZER COVID-19 2021-02-25 Completed [facility] VACCINATION 00:00:00 Hospital PFIZER COVID-19 2021-02-25 Completed [facility] MRNA VACCINATION 00:00:00 [facility] PFIZER COVID-19 2021-02-25 Completed [facility] MRNA VACCINATION 00:00:00 Hospital PFIZER COVID-19 2021-02-25 Completed [facility] MRNA VACCINATION 00:00:00 Hospital PFIZER COVID-19 2021-02-25 Completed [facility] MRNA VACCINATION 00:00:00 [facility] PFIZER COVID-19 2021-02-25 Completed [facility] MRNA VACCINATION 00:00:00 Hospital PFIZER COVID-19 2021-02-25 Completed [facility] MRNA VACCINATION 00:00:00 Hospital PFIZER COVID-19 2021-02-25 Completed [facility] MRNA VACCINATION 00:00:00 Hospital PFIZER COVID-19 2021-02-25 Completed [facility] MRNA VACCINATION 00:00:00 [facility] SARS-COV-2 COVID-19 2021-01-06 Completed Unive rsity of PFIZER VACCINE 00:00:00 [facility] SARS-COV-2 COVID-19 2021-01-06 Completed Unive rsity of PFIZER VACCINE 00:00:00 [facility] PFIZER COVID-19 2021-01-06 Completed [facility] MRNA VACCINATION 00:00:00 Hospital PFIZER COVID-19 2021-01-06 Completed [facility] MRNA VACCINATION 00:00:00 Hospital PFIZER COVID-19 2021-01-06 Completed [facility] MRNA VACCINATION 00:00:00 Hospital PFIZER COVID-19 2021-01-06 Completed [facility] MRNA VACCINATION 00:00:00 Hospital PFIZER COVID-19 2021-01-06 Completed [facility] MRNA VACCINATION 00:00:00 Hospital PFIZER COVID-19 2021-01-06 Completed [facility] M[facility] VACCINATION 00:00:00 Hospital PFIZER COVID-19 2021-01-06 Completed [facility] MRNA VACCINATION 00:00:00 Hospital PFIZER COVID-19 2021-01-06 Completed [facility] MRNA VACCINATION 00:00:00 [facility] PFIZER COVID-19 2021-01-06 Completed [facility] MRNA VACCINATION 00:00:00 Hospital PFIZER COVID-19 2021-01-06 Completed [facility] MRNA VACCINATION 00:00:00 [facility] SARS-COV-2 COVID-19 2020-11-03 Completed Unive rsity of [...] 2019-12-05 Completed University o f Polysaccharide, 00:00:00 [place] [facility] PPSV23 (PNEUMOVAX) Branch Pneumococcal 2019-12-05 Completed University o f Polysaccharide, 00:00:00 [facility] ical PPSV23 (PNEUMOVAX) Branch TDAP 2019-08-19 Completed University of 00:00:00 [facility] TDAP 2019-08-19 Completed University of 00:00:00 [facility] Flu Trivalent 2019-04-28 Completed University of 00:00:00 [facility] Influenza Virus 2019-04-28 Completed Universit y of Vaccine Quad IM 3+ 00:00:00 [facility] Flu Trivalent 2019-04-28 Completed University of 00:00:00 [facility] Influenza Virus 2019-04-28 Completed Universit y of Vaccine Quad IM 3+ 00:00:00 [facility] Flu Trivalent 2018-03-18 Completed University of 00:00:00 [facility] Flu Trivalent 2018-03-18 Completed University of 00:00:00 [facility] Flu Split Virus, 2017-04-26 Completed Universi ty of PSA 00:00:00 [facility] Flu Split Virus, 2017-04-26 Completed Universi ty of PSA 00:00:00 [facility] Flu Split Virus, 2016-05-01 Completed Universi ty of PSA 00:00:00 [facility] Flu Split Virus, 2016-05-01 Completed Universi ty of PSA 00:00:00 [facility] Flu Split Virus, 2015-04-29 Completed Universi ty of PSA 00:00:00 [facility] Flu Split Virus, 2015-04-29 Completed Universi ty of PSA 00:00:00 [facility] Pneumococcal 2012-05-03 Completed University o f Polysaccharide, 00:00:00 [place] [facility] PPSV23 (PNEUMOVAX) Branch Pneumococcal 2012-05-03 Completed University o f Polysaccharide, 00:00:00 [facility] ical PPSV23 (PNEUMOVAX) Branch TDAP 2009-09-06 Completed University of 00:00:00 [facility] TDAP 2009-09-06 Completed University of 00:00:00 [facility] Pneumococcal 2008-07-09 Completed University o f Polysaccharide, 00:00:00 [place] [facility] PPSV23 (PNEUMOVAX) Branch Pneumococcal 2008-07-09 Completed University o f Polysaccharide, 00:00:00 [facility] ical PPSV23 (PNEUMOVAX) Branch Vital Signs Vital Name Observation Time Observation Value Comments Source Systolic blood 2022-11-07 20:23:00 130 mm[Hg] Univer sity of pressure [facility] Diastolic blood 2022-11-07 20:23:00 58 mm[Hg] Unive rsity of pressure [facility] Heart rate 2022-11-07 20:23:00 62 /min Universi ty of [facility] Body temperature 2022-11-07 20:23:00 36.11 Katharina [facility] Res[facility] rate 2022-11-07 20:23:00 17 /min [facility] Oxygen saturation in 2022-11-07 20:23:00 100 /min [facility] Arterial blood by [facility] Pulse oximetry Branch Body weight 2022-11-06 17:09:00 74 kg [facility] BMI 2022-11-06 17:09:00 26.33 kg/m2 [facility] Body height 2022-11-04 22:57:00 167.6 cm [facility] height 2022-08-15 10:20:00 66.0 [in_i] [facility] weight 2022-08-15 10:20:00 224.4 [lb_av] [facility] temperature 2022-08-15 10:20:00 97.0 [degF] Common [facility] bmi 2022-08-15 10:20:00 36.22 kg/m2 [facility] oximetry 2022-08-15 10:20:00 96 % [facility] respiratory rate 2022-08-15 10:20:00 17 /min [facility] blood pressure 2022-08-15 10:20:00 131 mm[Hg] Common [facility] - systolic [facility] blood pressure 2022-08-15 10:20:00 72 mm[Hg] Common [facility] - diastolic [facility] height 2022-02-27 11:20:00 66.0 [in_i] [facility] weight 2022-02-27 11:20:00 236.6 [lb_av] [facility] temperature 2022-02-27 11:20:00 97.2 [degF] Common [facility] bmi 2022-02-27 11:20:00 38.18 kg/m2 [facility] oximetry 2022-02-27 11:20:00 94 % [facility] respiratory rate 2022-02-27 11:20:00 16 /min [facility] on [facility] blood pressure 2022-02-27 11:20:00 138 mm[Hg] Common [facility] - systolic [facility] blood pressure 2022-02-27 11:20:00 76 mm[Hg] Common [facility] - diastolic [facility] height 2022-02-27 11:00:00 66.0 [in_i] [facility] weight 2022-02-27 11:00:00 236.6 [lb_av] [facility] temperature 2022-02-27 11:00:00 97.2 [degF] Common [facility] bmi 2022-02-27 11:00:00 38.18 kg/m2 [facility] oximetry 2022-02-27 11:00:00 93 % [facility] respiratory rate 2022-02-27 11:00:00 16 /min [facility] blood pressure 2022-02-27 11:00:00 138 mm[Hg] Common [facility] - systolic [facility] blood pressure 2022-02-27 11:00:00 76 mm[Hg] [facility] diastolic [facility] Systolic blood 2020-10-14 14:10:00 120 mm[Hg] Univer sity of [facility] Diastolic blood 2020-10-14 14:10:00 65 mm[Hg] Unive rsity [facility] Heart rate 2020-10-14 14:10:00 81 /min [facility] Body temperature 2020-10-14 14:10:00 36.06 Katharina [facility] Res[facility] rate 2020-10-14 14:10:00 13 /min Univ [facility] Oxygen saturation in 2020-10-14 14:10:00 99 /min [facility] Arterial blood by [facility] Pulse oximetry Branch Body height 2020-10-01 18:42:00 167.6 cm [facility] Body weight 2020-10-01 18:42:00 108.4 kg [facility] BMI 2020-10-01 18:42:00 38.59 kg/m2 [facility] Systolic blood 2020-10-14 14:10:00 120 mm[Hg] [...] 99 /min University of Arterial blood by [facility] jose Pulse oximetry Branch Body [...] 100 /min University of Arterial blood by [facility] Pulse oximetry Branch Respiratory rate 2020-04-01 [...] Branch Body temperature 2020-04-01 13:55:00 36.11 Katharina [facility] Oxygen saturation in 2020-04-01 13:50:00 100 /min [facility] Arterial blood by [facility] Pulse oximetry [place] Respiratory rate 2020-04-01 13:45:00 18 /min [facility] Body height 2020-03-30 17:15:00 167.6 cm [facility] Body weight 2020-03-30 17:15:00 108.41 kg [facility] BMI 2020-03-30 17:15:00 38.58 kg/m2 [facility] Respiratory rate 2020-04-01 13:32:00 18 /min [facility] Respiratory rate 2020-04-01 13:32:00 18 /min [facility] Heart rate 2022-04-26 17:30:00 76 /min [facility] Oxygen saturation in 2022-04-26 17:30:00 93 /min [facility] Arterial blood by Pulse oximetry Systolic blood 2022-04-26 17:20:00 139 mm[Hg] [facility] pressure Diastolic blood 2022-04-26 17:20:00 67 mm[Hg] [facility] pressure Respiratory rate 2022-04-26 17:20:00 16 /min [facility] Body temperature 2022-04-26 17:00:00 36.44 Katharina [facility] Body height 2022-04-24 17:06:00 167.6 cm [facility] Body weight 2022-04-24 17:06:00 110.224 kg [facility] BMI 2022-04-24 17:06:00 39.22 kg/m2 [facility] Systolic (mm Hg) 2021-02-23 20:05:00 Jairobecki zhu [place] Diastolic (mm Hg) 2021-02-23 20:05:00 Anita Saucedo Heart Rate 2021-02-23 20:05:00 [facility] Rate 2021-02-23 20:05:00 Sriram Larkin Height 2021-02-23 20:05:00 162.56 cm [facility] Weight 2021-02-23 20:05:00 [facility] BMI Calculated 2021-02-23 20:05:00 Sriram Larkin Procedures Procedure Date / Time Performing Source Performed Clinician POCT GLUCOSE (AUTOMATED) 2022-11-07 [facility] 21:57:00 [facility] POCT GLUCOSE (AUTOMATED) 2022-11-07 [facility] 16:44:00 Medical [place] POCT GLUCOSE (AUTOMATED) 2022-11-07 [facility] 13:11:00 [facility] BASIC METABOLIC PANEL (NA, K, 2022-11-07 [facility] CL, CO2, GLUCOSE, BUN, 08:55:00 Medical [place] CREATININE, [place]) CBC WITH DIFF 2022-11-07 [facility] 08:55:00 [facility] POCT GLUCOSE (AUTOMATED) 2022-11-06 [facility] 21:39:00 [facility] POCT GLUCOSE (AUTOMATED) 2022-11-06 [facility] 16:26:00 Medical Branch TROPONIN I 2022-11-06 [facility] 14:09:00 Medical Branch HEPATITIS B SURFACE ANTIBODY 2022-11-06 Enrrique Hodges [facility] 14:09:00 Medical [place] HEPATITIS B SURFACE ANTIGEN 2022-11-06 Enrrique Hodges [facility] 14:09:00 [facility] POCT GLUCOSE (AUTOMATED) 2022-11-06 [facility] 12:39:00 [facility] BASIC METABOLIC PANEL (NA, K, 2022-11-06 [facility], CO2, GLUCOSE, BUN, 08:56:00 Medical [place] CREATININE, CA) CBC WITH DIFF 2022-11-06 [facility] 08:56:00 [facility] N-TERMINAL PRO-BNP 2022-11-06 [facility] 08:56:00 Medical [place] EXTERNAL PROVIDER RECORDS 2022-11-06 Doctor Unassigned, [facility] 05:01:00 [place] [facility] DISCLOSURE AND CONSENT, 2022-11-06 Doctor [facility]assigned, [facility] SUR[facility]ICAL 05:01:00 [place] [facility] PROCEDURES POCT GLUCOSE (AUTOMATED) 2022-11-06 [facility] 01:40:00 [facility] POCT GLUCOSE (AUTOMATED) 2022-11-05 [facility] 22:02:00 [facility] POCT GLUCOSE (AUTOMATED) 2022-11-05 [facility] 16:39:00 [facility] TRANSTHORACIC ECHO (TTE) 2022-11-05 [facility] COMPLETE W/ CONTRAST 14:33:00 Medical [facility] POCT GLUCOSE (AUTOMATED) 2022-11-05 [facility] 12:53:00 [facility] PHOSPHORUS 2022-11-05 [facility] [address] 09:24:00 [facility] MAGNESIUM 2022-11-05 [facility] [address] 09:24:00 [facility] TROPONIN I 2022-11-05 [facility], [facility] [address] 09:24:00 [facility] COMP. METABOLIC PANEL ([id number]) 2022-11-05 [facility] 09:24:00 [facility] LIPID PANEL ([id number])(TOTAL 2022-11-05 [facility] CHOLESTEROL, TRIGLYCERIDES, 09:24:00 [facility] HDL) CBC WITH DIFF 2022-11-05 [facility] 09:24:00 [facility] N-TERMINAL PRO-BNP 2022-11-05 [facility] 09:24:00 [facility] TROPONIN I 2022-11-05 [facility] [address] 02:39:00 [facility] BLOOD CULTURE SCREEN 2022-11-04 Katherin Persaud [facility] 21:48:00 [facility] RAPID INFLUENZA A/B 2022-11-04 Katherin Persaud [facility] 20:50:00 [facility] WOUND CULTURE 2022-11-04 Katherin Persaud [facility] 20:50:00 [facility] COVID-19 (ID NOW RAPID 2022-11-04 Katherin Persaud [facility] TESTING) 20:50:00 [facility] LAB ONLY COVID INTERPRETATION 2022-11-04 Katherin Persaud [facility] 20:50:00 Medical Branch XR CHEST 1 VW 2022-11-[address] [facility] [place] 20:29:26 [facility] HB ECG ROUTINE & RHYTHM STRIP 2022-11-04 Katherin Persaud [facility] 19:39:09 Medical Branch PHOSPHORUS 2022-11-[address] [facility] [place] 19:31:00 [facility] CREATINE KINASE 2022-11-[address] [facility] [place] 19:31:00 Medical [facility] MAGNESIUM 2022-11-04 Katherin Persaud [facility] [place] 19:31:00 [facility] TROPONIN I 2022-11-04 Katherin Persaud [facility] 19:31:00 Medical Branch FREE T4 2022-11-04 [facility] [place] 19[facility]31:00 Medical Branch THYROID STIMULATING HORMONE 2022-11-04 [facility] 19:31:00 Medical Branch COMP. METABOLIC PANEL ([id number]) 2022-11-04 Katherin Persaud [facility] 19:31:00 Medical Branch CBC WITH DIFF 2022-11-04 Katherin Persaud [facility] 19:31:00 Medical Branch GLYCOSYLATED HEMOGLOBIN (A1C) 2022-11-04 [facility] 19:31:00 Medical Branch URINALYSIS 2022-11-04 Katherin Persaud [facility] 19:31:00 [facility] N-TERMINAL PRO-BNP 2022-11-04 Katherin Persaud [facility] 19:31:00 Medical Branch FREE T3 2022-11-04 [facility] [place] 19:31:00 [facility] LACTIC ACID WHOLE BLOOD 2022-11-04 Katherin Persaud [facility] 19:30:00 Medical Branch [id number] 2022-07-06 [facility] 00[facility]00:00 [facility] [id number] 2022-07-04 [facility] 00:00:00 [facility] [id number] 2022-07-01 [facility] 00:00:00 [facility] [id number] 2022-06-29 [facility] 00:00:00 [facility] [id number] 2022-06-28 [facility] 00:00:00 [facility] [id number] 2022-06-27 [facility] 00:00:00 [facility] [id number] 2022-06-27 [facility] 00:00:00 [facility] [id number] 2022-06-27 [facility] 00:00:00 [facility] [id number] 2022-06-27 [facility] 00:00:00 [facility] [id number] 2022-06-26 [facility] 00:00:00 [facility] [id number] 2022-06-26 [facility] 00:00:00 [facility] [id number] 2022-06-26 [facility] 00:00:00 [facility] [id number] 2022-06-26 [facility] 00:00:00 [facility] [id number] 2022-06-26 [facility] 00:00:00 [facility] [id number] 2022-06-24 [facility] 00:00:00 [facility] [id number] 2022-06-23 [facility] 00:00:00 [facility] [id number] 2022-06-22 [facility] 00:00:00 [facility] POC GLUCOSE 2022-04-26 [facility] 16:04:00 E. [place] AN ELECTIVE ENDOTRACHEAL 2022-04-26 Mariely De La Cruz [facility] 15:12:00 LAPAROSCOPIC REMOVAL OR 2022-04-26 Jose Becker [facility] REPOSITIONING OF PERITONEAL 14:56:00 E. DIALYSIS CATHETER ESTIMATED GFR 2022-04-26 [facility] 13:00:00 E. POC PANEL 2022-04-26 [facility] 13:00:00 E. POC GLUCOSE 2022-03-06 [facility] 16:00:00 E. SURGICAL PATHOLOGY REQUEST 2022-03-06 [facility] 15:28:00 E. POC GLUCOSE 2022-03-06 [facility] 15:23:00 E. ANESTHESIA INTUBATION 2022-03-06 TrentLuzmaria gee [facility] 12:57:00 CHOLECYSTECTOMY, LAPAROSCOPIC 2022-03-06 [facility] 12:44:00 E. INSERTION, CATHETER, 2022-03-06 [facility] DIALYSIS, PERITONEAL, 12:44:00 E. LAPAROSCOPIC ESTIMATED GFR 2022-03-06 [facility] 11:50:00 E. POC PANEL 2022-03-06 [facility] 11:50:00 E. BASIC METABOLIC PANEL 2022-03-06 [facility] 11:40:00 ESTIMATED GFR [facility]22[facility]03-06 [facility] 11:40:00 CBC WITH PLATELET AND 2022-03-01 [facility] DIFFERENTIAL 18:18:00 HEMOGLOBIN A1C 2022-03-01 [facility] 18:18:00 PARTIAL THROMBOPLASTIN TIME 2022-03-01 [facility] (PTT) 18:18:00 PROTHROMBIN TIME WITH INR 2022-03-01 [facility] 18:18:00 REFERRAL- REQUEST/RESPONSE 2022-02-07 [facility] [place] [facility] ECG PRE/POST OP 2021-12-12 [facility] 20:54:02 CBC WITH PLATELET AND 2021-12-12 [facility] DIFFERENTIAL 20:25:00 HEMOGLOBIN A1C 2021-12-12 [facility] 20:25:00 TYPE AND SCREEN 2021-12-12 [facility] verónica 20:25:00 PHACOEMULSIFICATION OF 2020-10-14 Ale[facility] CATARACT WITH INTRAOCULAR 13:33:00 [place] LENS IMPLANT POCT GLUCOSE (AUTOMATED) 2020-10-14 Fausto Moraes [facility] 12:38:00 [facility] POCT GLUCOSE(AGE >30DAYS) 2020-10-14 JerryAnita [facility] 12:35:00 Medical Branch ASSIGNMENT OF BENEFITS 2020-10-12 Doctor Unassigned, [facility] 16:32:53 [place] [facility] POCT GLUCOSE(AGE >30DAYS) 2020-04-01 Bora Skinner [facility] 12:03:00 Medical Branch ASSIGNMENT OF BENEFITS 2020-03-30 Doctor Unassigned, [facility] 16:01:28 [place] [facility] NOTICE OF BILLING PRACTICES 2020-03-23 [facility] FOR MEDICARE PATIENTS 20:49:43 [place] [facility] PATIENT FINANCIAL POLICY 2020-03-23 Doctor Unassigned, [facility] 20:49:19 [place] [facility] NO SHOW OR MISSED APPOINTMENT 2020-03-23 Doctor Unassigned, [facility] POLICY ACKNOWLEDGEMENT 20:48:59 [place] [facility] NOTICE OF PRIVACY PRACTICES 2020-03-23 Doctor Unassigned, [facility] 20:48:48 [place] [facility] CONSENT/REFUSAL FOR DIAGNOSIS 2020-03-23 Doctor Unassigned, [facility] AND TREATMENT 20:48:30 [place] [facility] ASSIGNMENT OF BENEFITS 2020-03-23 Doctor Unassigned, [facility] 20:48:19 [place] [facility] PHYSICIAN ORDERS 2020-03-23 Doctor Unassigned, [facility] 05:01:00 [place] [facility] Knee replacement<sup>2</sup> Mem orial [place] Fusion<sup>1</sup> [facility] joss Back fusion [facility] Plan of Care Planned Activity [...] Ended)] Future Scheduled 2022-11-03 Hepatitis C screening [facility] Test 07:38:23 (procedure) [code = 065124100] Future Scheduled 2022-11-03 SHINGLES VACCINES (1 [facility] Test 07:38:23 of 2) [code = SHINGLES VACCINES (1 of 2)] Future Scheduled 2022-11-03 BREAST CANCER [facility] Test 07:38:23 SCREENING [code = BREAST CANCER SCREENING] Future Scheduled 2022-11-03 COLONOSCOPY SCREENING [facility] Test 07:38:23 [code = COLONOSCOPY SCREENING] Future Scheduled 2022-11-03 65+ PNEUMOCOCCAL [facility] Test 07:38:23 VACCINE (3 - PCV) [code = 65+ PNEUMOCOCCAL VACCINE (3 - PCV)] Future Scheduled 2022-11-03 INFLUENZA VACCINE [facility] Test 07:38:23 [code = INFLUENZA VACCINE] Future Scheduled 2022-11-03 Hepatitis C screening [facility] Test 07:38:23 (procedure) [code = [id number]] Future Scheduled 2022-11-03 SHINGLES VACCINES (1 Met [facility] Test 07:38:23 of 2) [code = SHINGLES VACCINES (1 of 2)] Future Scheduled 2022-11-03 BREAST CANCER [facility] Test 07:38:23 SCREENING [code = BREAST CANCER SCREENING] Future Scheduled 2022-11-03 COLONOSCOPY SCREENING [facility] Test 07:38:23 [code = COLONOSCOPY SCREENING] Future Scheduled 2022-11-03 65+ PNEUMOCOCCAL [facility] Test 07:38:23 VACCINE (3 - PCV) [code = 65+ PNEUMOCOCCAL VACCINE (3 - PCV)] Future Scheduled 2022-11-03 INFLUENZA VACCINE [facility] Test 07:38:23 [code = INFLUENZA VACCINE] Future Scheduled 2022-10-09 Hepatitis C screening [facility] Test 14:08:24 (procedure) [code = 123500112] Future Scheduled 2022-10-09 SHINGLES VACCINES (1 Met [facility] Test 14:08:24 of 2) [code = SHINGLES VACCINES (1 of 2)] Future Scheduled 2022-10-09 BREAST CANCER [facility] Test 14:08:24 SCREENING [code = BREAST CANCER SCREENING] Future Scheduled 2022-10-09 COLONOSCOPY SCREENING [facility] Test 14:08:24 [code = COLONOSCOPY SCREENING] Future Scheduled 2022-10-09 65+ PNEUMOCOCCAL [facility] Test 14:08:24 VACCINE (3 - PCV) [code = 65+ PNEUMOCOCCAL VACCINE (3 - PCV)] Future Scheduled 2022-10-09 INFLUENZA VACCINE [facility] Test 14:08:24 [code = INFLUENZA VACCINE] Future Scheduled 2022-10-09 Hepatitis C screening [facility] Test 14:08:24 (procedure) [code = 317150212] Future Scheduled 2022-10-09 SHINGLES VACCINES (1 Met [facility] Test 14:08:24 of 2) [code = SHINGLES VACCINES (1 of 2)] Future Scheduled 2022-10-09 BREAST CANCER [facility] Test 14:08:24 SCREENING [code = BREAST CANCER SCREENING] Future Scheduled 2022-10-09 COLONOSCOPY SCREENING [facility] Test 14:08:24 [code = COLONOSCOPY SCREENING] Future Scheduled 2022-10-09 65+ [facility]OCOCCAL [facility] Test 14:08:24 VACCINE (3 - PCV) [code = 65+ PNEUMOCOCCAL VACCINE (3 - PCV)] Future Scheduled 2022-10-09 INFLUENZA VACCINE [facility] Test 14:08:24 [code = INFLUENZA VACCINE] Future Scheduled 2022-10-09 Hepatitis C screening [facility] Test 14:08:24 (procedure) [code = 278366723] Future Scheduled 2022-10-09 SHINGLES VACCINES (1 Met [facility] Test 14:08:24 of 2) [code = SHINGLES VACCINES (1 of 2)] Future Scheduled 2022-10-09 BREAST CANCER [facility] Test 14:08:24 SCREENING [code = BREAST CANCER SCREENING] Future Scheduled 2022-10-09 COLONOSCOPY SCREENING [facility] Test 14:08:24 [code = COLONOSCOPY SCREENING] Future Scheduled 2022-10-09 65+ PNEUMOCOCCAL [facility] Test 14:08:24 VACCINE (3 - PCV) [code = 65+ PNEUMOCOCCAL VACCINE (3 - PCV)] Future Scheduled 2022-10-09 INFLUENZA VACCINE [facility] Test 14:08:24 [code = INFLUENZA VACCINE] Future Scheduled 2022-09-25 Hepatitis C screening [facility] Test 16:30:22 (procedure) [code = 424572964] Future Scheduled 2022-09-25 SHINGLES VACCINES (1 [facility] Test 16:30:22 of 2) [code = SHINGLES VACCINES (1 of 2)] Future Scheduled 2022-09-25 BREAST CANCER [facility] Test 16:30:22 SCREENING [code = BREAST CANCER SCREENING] Future Scheduled 2022-09-25 COLONOSCOPY SCREENING [facility] Test 16:30:22 [code = COLONOSCOPY SCREENING] Future Scheduled 2022-09-25 65+ [facility]OCOCCAL [facility] Test 16:30:22 VACCINE (3 - PCV) [code = 65+ PNEUMOCOCCAL VACCINE (3 - PCV)] Future Scheduled 2022-09-25 INFLUENZA VACCINE [facility] Test 16:30:22 [code = INFLUENZA VACCINE] [...] Future Scheduled 2022-06-22 Hepatitis C screening [facility] Test 00:46:40 (procedure) [code = 236508876] Future Scheduled 2022-06-22 SHINGLES VACCINES (1 Met [facility] Test 00:46:40 of 2) [code = SHINGLES VACCINES (1 of 2)] Future Scheduled 2022-06-22 BREAST CANCER [facility] Test 00:46:40 SCREENING [code = BREAST CANCER SCREENING] Future Scheduled 2022-06-22 COLONOSCOPY SCREENING Me [facility] Test 00:46:40 [code = COLONOSCOPY SCREENING] Future Scheduled 2022-06-22 65+ [facility]OCOCCAL [facility] Test 00:46:40 VACCINE (3 - PCV) [code = 65+ PNEUMOCOCCAL VACCINE (3 - PCV)] Future Scheduled 2022-06-22 INFLUENZA VACCINE [facility] Test 00:46:40 [code = INFLUENZA VACCINE] Future Scheduled 2022-06-22 Hepatitis C screening Me [facility] Test 00:46:40 (procedure) [code = 560218117] Future Scheduled 2022-06-22 SHINGLES VACCINES (1 Met [facility] Test 00:46:40 of 2) [code = SHINGLES VACCINES (1 of 2)] Future Scheduled 2022-06-22 BREAST CANCER [facility] Test 00:46:40 SCREENING [code = BREAST CANCER SCREENING] Future Scheduled 2022-06-22 COLONOSCOPY SCREENING Me [facility] Test 00:46:40 [code = COLONOSCOPY SCREENING] Future Scheduled 2022-06-22 65+ PNEUMOCOCCAL [facility] Test 00:46:40 VACCINE (3 - PCV) [code = 65+ PNEUMOCOCCAL VACCINE (3 - PCV)] Future Scheduled 2022-06-22 INFLUENZA VACCINE [facility] Test 00:46:40 [code = INFLUENZA VACCINE] Future Scheduled 2022-06-22 Hepatitis C screening Me [facility] Test 00:46:40 (procedure) [code = 163343745] Future Scheduled 2022-06-22 SHINGLES VACCINES (1 Met [facility] Test 00:46:40 of 2) [code = SHINGLES VACCINES (1 of 2)] Future Scheduled 2022-06-22 BREAST CANCER [facility] Test 00:46:40 SCREENING [code = BREAST CANCER SCREENING] Future Scheduled 2022-06-22 COLONOSCOPY SCREENING [facility] Test 00:46:40 [code = COLONOSCOPY SCREENING] Future Scheduled 2022-06-22 65+ PNEUMOCOCCAL [facility] Test 00:46:40 VACCINE (3 - PCV) [code = 65+ PNEUMOCOCCAL VACCINE (3 - PCV)] Future Scheduled 2022-06-22 INFLUENZA VACCINE [facility] Test 00:46:40 [code = INFLUENZA VACCINE] Future Scheduled 2022-06-11 HEPATITIS B VACCINES Met [facility] Test 01:18:56 (1 of 3 - 3-dose series) [code = HEPATITIS B VACCINES (1 of 3 - 3-dose series)] Future Scheduled 2022-06-11 Hepatitis C screening [facility] Test 01:18:56 (procedure) [code = 630203034] Future Scheduled 2022-06-11 SHINGLES VACCINES (1 Met [facility] Test 01:18:56 of 2) [code = SHINGLES VACCINES (1 of 2)] Future Scheduled 2022-06-11 BREAST CANCER [facility] Test 01:18:56 SCREENING [code = BREAST CANCER SCREENING] Future Scheduled 2022-06-11 COLONOSCOPY SCREENING [facility] Test 01:18:56 [code = COLONOSCOPY SCREENING] Future Scheduled 2022-06-11 65+ PNEUMOCOCCAL [facility] Test 01:18:56 VACCINE (3 - PCV) [code = 65+ PNEUMOCOCCAL VACCINE (3 - PCV)] Future Scheduled 2022-06-11 INFLUENZA VACCINE [facility] Test 01:18:56 [code = INFLUENZA VACCINE] [...] [facility] (procedure) [code = 711077844] Future Scheduled [address] [facility] Test 00:00:00 [facility] colon (procedure) [code = 072777625] Future Scheduled 1956 [facility] Future Scheduled [address] [facility] Test 00:00:00 [facility] colon (procedure) [code = 779133058] Future Scheduled 1956 [facility] Test 00:[facility] Future Scheduled [address] [facility] Test 00:00:00 [facility] breast (procedure) [code = 500730783] Future Scheduled [address] [facility] Test 00:00:00 (combo) [code = CT Medical C enter Colonography (combo)] Future Scheduled [address] [facility] Test 00:00:00 [facility] colon (procedure) [code = 179597279] Future Scheduled [address] [facility] Test 00:00:00 [facility] colon (procedure) [code = 129572912] Future Scheduled 1956 DXA SCAN [code = DXA [facility] Test 00:00:00 SCAN] [facility] Future Scheduled [address] [facility] Test 00:00:00 [facility] colon (procedure) [code = 148526498] Future Scheduled 1956 [facility] 00:[facility] Future Scheduled [address] [facility] Test 00:00:00 [facility] breast (procedure) [code = 137162564] Future Scheduled [address] [facility] Test 00:00:00 (combo) [code = CT Medical C enter Colonography (combo)] Future Scheduled [address] [facility] Test 00:00:00 [facility] colon (procedure) [code = 954061081] Future Scheduled [address] [facility] Test 00:00:00 [facility] colon (procedure) [code = 801273264] Future Scheduled 1956 DXA SCAN [code = DXA [facility] Test 00:00:00 SCAN] [facility] Future Scheduled [address] [facility] Test 00:00:00 [facility] colon (procedure) [code = 003929044] Future Scheduled [address] [facility] Test 00:00:00 [facility] colon (procedure) [code = 598099495] Future Scheduled 1956 [facility] Future Scheduled [address] [facility] Test 00:00:00 [facility] breast (procedure) [code = 830879067] Future Scheduled [address] [facility] Test 00:00:00 (combo) [code = CT Medical C enter Colonography (combo)] Future Scheduled [address] [facility] Test 00:00:00 [facility] colon (procedure) [code = 528426970] Future Scheduled [address] [facility] Test 00:00:00 [facility] colon (procedure) [code = 864306469] Future Scheduled 1956 DXA SCAN [code = DXA [facility] Test 00:00:00 SCAN] [facility] Future Scheduled [address] [facility] Test 00:00:00 [facility] colon (procedure) [code = 271840242] Future Scheduled [address] [facility] Test 00:00:00 [facility] colon (procedure) [code = 751356948] Future Scheduled 1956 [facility] 00:[facility] Future Scheduled [address] [facility] Test 00:00:00 [facility] breast (procedure) [code = 431232578] Future Scheduled [address] [facility] Test 00:00:00 (combo) [code = CT Medical C enter Colonography (combo)] Future Scheduled [address] [facility] Test 00:00:00 [facility] colon (procedure) [code = 707902996] Future Scheduled [address] [facility] Test 00:00:00 [facility] colon (procedure) [code = 144436530] Future Scheduled 1956 DXA SCAN [code = DXA [facility] Test 00:00:00 SCAN] [facility] Future Scheduled [address] [facility] Test 00:00:00 [facility] colon (procedure) [code = 530731305] Future Scheduled [address] [facility] Test 00:00:00 [facility] colon (procedure) [code = 715219852] Future Scheduled 1956 [facility] 00:[facility] Future Scheduled [address] [facility] Test 00:00:00 [facility] breast (procedure) [code = 833972549] Future Scheduled [address] [facility] Test 00:00:00 [facility] breast (procedure) [code = 928551148] Future Scheduled [address] [facility] Test 00:00:00 (combo) [code = CT Medical C enter Colonography (combo)] Future Scheduled [address] [facility] Test 00:00:00 malignant [facility] colon (procedure) [code = 958172400] Future Scheduled [address] [facility] Test 00:00:00 [facility] colon (procedure) [code = 044240430] Future Scheduled 1956 DXA SCAN [code = DXA [facility] Test 00:00:00 SCAN] [facility] Future Scheduled [address] [facility] Test 00:00:00 [facility] colon (procedure) [code = 338316226] Future Scheduled [address] [facility] Test 00:00:00 [facility] colon (procedure) [code = 664735549] Future Scheduled 1956 [facility] [address] [facility] Test 00:00:00 (combo) [code = CT Medical C enter Colonography (combo)] Future Scheduled [address] [facility] Test 00:00:00 [facility] breast (procedure) [code = 482757600] Future Scheduled [address] [facility] Test 00:00:00 (combo) [code = CT Medical C enter Colonography (combo)] Future Scheduled [address] [facility] Test 00:00:00 [facility] colon (procedure) [code = 582424916] Future Scheduled [address] [facility] Test 00:00:00 [facility] colon (procedure) [code = 374274725] Future Scheduled [address] [facility] Test 00:00:00 [facility] colon (procedure) [code = 088037550] Future Scheduled 1956 DXA SCAN [code = DXA [facility] Test 00:00:00 SCAN] [facility] Future Scheduled [address] [facility] Test 00:00:00 [facility] colon (procedure) [code = 182690399] Future Scheduled [address] [facility] Test 00:00:00 malignant [facility] colon (procedure) [code = 778145189] Future Scheduled 1956 [facility] 00:[facility] Future Scheduled [address] [facility] Test 00:00:00 [facility] colon (procedure) [code = 965768251] Future Scheduled [address] [facility] Test 00:00:00 [facility] breast (procedure) [code = 811069419] Future Scheduled [address] [facility] Test 00:00:00 (combo) [code = CT Medical C enter Colonography (combo)] Future Scheduled [address] [facility] Test 00:00:00 malignant [facility] colon (procedure) [code = 115947303] Future Scheduled [address] [facility] Test 00:00:00 [facility] colon (procedure) [code = 758292923] Future Scheduled 1956 DXA SCAN [code = DXA [facility] Test 00:00:00 SCAN] [facility] Future Scheduled 1956 DXA SCAN [code = DXA [facility] Test 00:00:00 SCAN] [facility] Future Scheduled [address] [facility] Test 00:00:00 [facility] colon (procedure) [code = 580928590] Future Scheduled [address] [facility] Test 00:00:00 [facility] colon (procedure) [code = 463946048] Future Scheduled 1956 [facility] 00:[facility] Future Scheduled [address] [facility] Test 00:00:00 [facility] colon (procedure) [code = 312740195] Future Scheduled [address] [facility] Test 00:00:00 [facility] breast (procedure) [code = 961393504] Future Scheduled [address] [facility] Test 00:00:00 (combo) [code = CT Medical C enter Colonography (combo)] Future Scheduled [address] [facility] Test 00:00:00 [facility] colon (procedure) [code = 021340366] Future Scheduled [address] [facility] Test 00:00:00 [facility] colon (procedure) [code = 090734969] Future Scheduled 1956 DXA SCAN [code = DXA [facility] Test 00:00:00 SCAN] [facility] Future Scheduled [address] [facility] Test 00:00:00 [facility] colon (procedure) [code = 839057250] Encounters Start End Encounter Admission Attending Care Care Encounter Source Date/Time Date/Time Type Type Clinicians Facility Department ID 2022-11-13 Outpatient 3 [id number] [facility] CRD [id number] [facility] 15:05:25 [facility] 2022-11-08 Outpatient 3 [id number] [facility] CRD [id number] [facility] 09:30:23 [facility] [place] 2022-11-07 Outpatient 3 [id number] ENC[facility] REF [id number] [facility] 21:38:12 0[facility] [place] 2022-08-14 Outpatient Mora, STLMLC [facility] [id number] Common 07:43:01 [facility] [address] [facility] 2022-08-04 Out[facility] [id number] Common 13:26:01 [facility] [address] [facility] 2022-08-03 Outpatient Mora, STLMLC ST[facility] [id number] Common 14:53:01 Sabrina [address] [facility] 2022-07-25 Outpatient Mora, STLMLC STLMLC [id number] Common 15:59:02 Sabrina 965[address] [facility] 2022-07-24 Outpatient Mora, STLMLC STLMLC [id number] Common 07:39:00 [facility] [address] [facility] 2022-07-19 Outpatient Mora, STLMLC STLMLC [id number] Common 08:46:01 Sabrina 14548 [facility] 2022-07-15 Inpatient AR Schmid, HCACL ADMI [id number] [facility] 11:05:[address] [place] [address] 2022-06-20 [facility] [id number] [facility]00 [facility] 2022-06-20 [facility] [id number] [facility] 00:00:00 [facility] 2022-06-15 Outpatient Mora, STLMLC STLMLC [id number] Common 08:26:02 Sabrina [facility] 2022-05-25 Outpatient Mora, STLMLC STLMLC [id number] Common 11:25:01 [facility] 2022-02-27 Outpatient Mora, STLMLC STLMLC [id number] Common 10:42:02 Sabrina [facility] 2022-02-03 Outpatient Myrick, STLMLC STLMLC [id number] Common 12:12:00 Avnee [facility] 2022-01-31 Outpatient Myrick, STLMLC STLMLC [id number] Common 12:38:00 Avnee [facility] 2021-12-02 Outpatient Myrick, STLMLC STLMLC [id number] Common 15:52:01 Avnee [facility] 2021-12-01 Outpatient Myrick, STLMLC STLMLC [id number] Common 10:24:03 Avnee [facility] 2021-11-21 Outpatient Myrick, STLEO [facility] [id number] Common 10:05:12 Avnee [facility] 2021-11-08 Outpatient Myrick, STLEO [facility] [id number] Common 08:37:01 Avnee [facility] 2021-11-04 Outpatient Myrick, STLEO [facility] [id number] Common 14:15:04 Avnee [facility] 2021-10-31 [facility] [id number] Common 09:40:02 [facility] 2021-08-04 Outpatient 3 [id number] ENCPL REF [id number] [facility] 13:44:15 0117 [facility] [place] 2021-08-04 Outpatient 3 [id number] ENCPL REF [id number] [facility] 13:21:20 1122 [facility] [place] 2021-05-08 Outpatient Estevan MORAES [facility] [id number] Univers 08:53:46 [facility] 2021-05-06 Outpatient Estevan MORAES [facility] ECTOR [id number] Univers 18:47:42 [facility] 2022-11-08 2022-11-08 Transition JENNY Ruiz 1.2.840.114 [id number] Univers 00:00:00 00:00:00 of Care Daija HCASE 350.1.13.10 [id number] [address] [place] 2022-11-04 2022-11-07 Outpatient X RAJNI [facility] NIMCO [id number] Univers 13:24:00 17:38:00 [place] adam [facility] 2022-11-04 2022-11-07 Emergency Cori Katherin G [facility] 1.2.840 .114 [id number] Univers 13:24:00 17:38:00 [place] 350.1.13.10 [facility] 4.2.7.2.686 [facility] [id number] [place] [address] 2022-08-15 2022-08-15 OFFICE STLMLC STLMLC [id number] Co mmon 00:00:00 00:00:00 VISIT [facility] LEVEL 4 [facility] 2022-07-26 2022-07-26 (TEL) STLMLC STLMLC [id number] Co mmon 00:00:00 00:00:00 [facility] 2022-07-13 2022-07-13 (TEL) STLMLC STLMLC [id number] Co mmon 00:00:00 00:00:00 [facility] 2022-06-22 2022-07-07 Inpatient UR Adonis [facility]01 G001 [id number] [facility] 09:01:00 17:11:00 00 [facility] 2022-06-08 2022-06-08 (TEL) STLMLC STLMLC [id number] Co mmon 00:00:00 00:00:00 [facility] 2022-05-31 2022-05-31 (TEL) STLMLC STLMLC [id number] Co mmon 00:00:00 00:00:00 [facility] 2022-04-26 2022-04-26 [facility], 1.2.840.1 [id number] Methodi 06:55:00 12:55:00 Encounter Jose Luevano. 91975.1.[address] 3.430.2.7 Hospit a .3.068809 l .8 2022-04-26 2022-04-26 [facility], 1.2.840.1 [id number] 21 [id number] Methodi 06:55:00 12:55:00 Encounter Jose E. 15967.1.[address] 3.430.2.7 Hospit a .3.856142 l .8 2022-04-26 2022-04-26 Anesthesia Reji Waldrop 1.2.840.1 1 [id number] Methodi 09:56:00 11:03:00 Event Ce Knutson 51637.1.[address] 3.430.2.7 Hospit a .3.406284 l .8 2022-04-26 2022-04-26 Anesthesia Reji Waldrop 1.2.840.1 1 [id number] Methodi 09:56:00 11:03:00 Event Ce Knutson 10981.1.[address] 3.430.2.7 Hospit a .3.085303 l .8 2022-04-26 2022-04-26 Surgery Oppermann, 1.2.840.1 [id number] [id number] Methodi 09:15:00 10:45:00 Jose E. 57853.1.1 677 s t 3.430.2.7 Hospit a .3.532790 l .8 2022-04-26 2022-04-26 [facility] 1.2.840.1 [id number] [id number] Methodi 09:15:00 10:45:00 Jose E. 78780.1.1 677 s t 3.430.2.7 Hospit a .3.988246 l .8 2022-04-26 2022-04-26 Travel 1.2.840.1 1.2.873.070 4725 [id number] Methodi 00:00:00 00:00:[address] 3.430.2.7 0.2.7.3.698 Ho spita .3.119123 084.8 l .8 2022-04-26 2022-04-26 Travel 1.2.840.1 1.2.456.929 [id number] [id number] Methodi 00:00:00 00:00:[address] 3.430.2.7 0.2.7.3.698 Ho spita .3.882635 084.8 l .8 2022-04-24 2022-04-24 Travel 1.2.840.1 1.2.837.256 4353 [id number] Methodi 00:00:00 00:00:[address] 3.430.2.7 0.2.7.3.698 Ho spita .3.193064 084.8 l .8 2022-04-24 2022-04-24 Travel 1.2.840.1 1.2.203.915 1497 [id number] Methodi 00:00:00 00:00:[address] 3.430.2.7 0.2.7.3.698 Ho spita .3.204248 084.8 l .8 2022-04-21 2022-04-21 Prep for Oppermann, 1.2.840.1 [id number] Methodi 00:00:00 00:00:00 Surgery Jose E. 92096.1.1 940 s t 3.430.2.7 Hospit a .3.310531 l .8 2022-04-21 2022-04-21 Orders Oppermann, 1.2.840.1 [id number] [id number] Methodi 00:00:00 00:00:00 Only Jose E. 41065.1.1 613 s t 3.430.2.7 Hospit a .3.023804 l .8 2022-04-21 2022-04-21 Prep for Oppermann, 1.2.840.1 [id number] Methodi 00:00:00 00:00:00 Surgery Jose E. 25424.1.1 940 s t 3.430.2.7 Hospit a .3.751728 l .8 2022-04-21 2022-04-21 Orders Oppermann, 1.2.840.1 [id number] [id number] Methodi 00:00:00 00:00:00 Only Jose E. 82505.1.1 613 s t 3.430.2.7 Hospit a .3.612233 l .8 2022-04-05 2022-04-05 Outpatient Estevan IVERSON [facility] [id number] Univers 15:00:00 15:00:00 CARSON agus [facility] 2022-03-21 2022-03-21 Office Oppermann, 1.2.840.1 [id number] Methodi 11:30:00 12:00:24 Visit Jose Keller 19071.1.1 407 s t 3.430.2.7 Hospit a .3.337813 l .8 2022-03-21 2022-03-21 Office Oppermann, 1.2.840.1 [id number] [id number] Methodi 11:30:00 12:00:24 Visit Jose Keller 82810.1.1 407 s t 3.430.2.7 Hospit a .3.917122 l .8 2022-03-21 2022-03-21 Travel 1.2.840.1 1.2.077.063 6897 [id number] Methodi 00:00:00 00:00:[address] 3.430.2.7 0.2.7.3.698 Ho spita .3.935349 084.8 l .8 2022-03-21 2022-03-21 Travel 1.2.840.1 1.2.903.732 0388 [id number] Methodi 00:00:00 00:00:[address] 3.430.2.7 0.2.7.3.698 Ho spita .3.358666 084.8 l .8 2022-03-15 2022-03-15 Outpatient R ZAYRA, [facility] [id number] Univers 10:00:00 10:00:00 CARSON agus [facility] 2022-03-14 2022-03-14 (TEL) STLC STLC [id number] Co mmon 00:00:00 00:00:00 [facility] 2022-03-06 2022-03-06 [facility] 1.2.840.1 [id number] 21 [id number] Methodi 05:46:00 12:05:00 Encounter Jose E. 99585.1.[address] 3.430.2.7 Hospit a .3.056438 l .8 2022-03-06 2022-03-06 [facility], 1.2.840.1 [id number] 21 [id number] Methodi 05:46:00 12:05:00 Encounter Jose E. 79570.1.[address] 3.430.2.7 Hospit a .3.001603 l .8 2022-03-06 2022-03-06 Anesthesia Jory Santoroon 1.2.840. 1 [id number] Methodi 07:44:00 09:46:00 Event Corrina Cavanaugh 98165.1.[address] 3.430.2.7 Hospit a .3.906628 l .8 2022-03-06 2022-03-06 Anesthesia Jory Santoro 1.2.840. 1 [id number] Methodi 07:44:00 09:46:00 Event Corrina Cavanaugh 50298.1.[address] 3.430.2.7 Hospit a .3.861815 l .8 2022-03-06 2022-03-06 Surgery [facility], 1.2.840.1 [id number] 915 [id number] Methodi 07:45:00 09:05:00 Jose E. 01591.1.1 269 s t 3.430.2.7 Hospit a .3.221099 l .8 2022-03-06 2022-03-06 Surgery [facility], 1.2.840.1 [id number] 196 [id number] Methodi 07:45:00 09:05:00 Jose E. 13679.1.1 269 s t 3.430.2.7 Hospit a .3.416885 l .8 2022-03-01 2022-03-01 Pre-Admiss [facility], 1.2.840.1 [id number] Methodi 13:00:00 14:00:00 ion Jose E. 27129.1.1 998 s t Testing 3.430.2.7 Hospit a .3.178138 l .8 2022-03-01 2022-03-01 Pre-Admiss Eugenio, 1.2.840.1 [id number] Methodi 13:00:00 14:00:00 isabelle Keller 84767.1.1 998 s t Testing 3.430.2.7 Hospit a .3.638072 l .8 2022-03-01 2022-03-01 Travel 1.2.840.1 1.2.288.149 0238 784192 Methodi 00:00:00 00:00:[address] 3.430.2.7 0.2.7.3.698 Ho spita .3.631595 084.8 l .8 2022-03-01 2022-03-01 Travel 1.2.840.1 1.2.758.281 6676 091574 Methodi 00:00:00 00:00:[address] 3.430.2.7 0.2.7.3.698 Ho spita .3.413197 084.8 l .8 2022-02-27 2022-02-27 SUB ANNUAL [facility] [id number] Common 00:00:00 00:00:00 MCR Spirit WELLNESS - CHI VISIT [facility] 2022-02-27 2022-02-27 OFFICE [facility] [id number] Co mmon 00:00:00 00:00:00 VISIT Spirit ESTAB PT - CHI LEVEL 4 [facility] 2022-02-27 2022-02-27 (TEL) [facility] [id number] Co mmon 00:00:00 00:00:00 Spirit - CHI [facility] 2022-02-07 2022-02-07 Orders Doctor ROSELIA 1.2.840.114 [id number] Univers 00:00:00 00:00:00 Only Unassigned, CINDY 350.1.13.10 ity of [place] [facility] 4.2.7.2.686 [place]grito as [phone] [place] [address] [place] 2022-02-02 2022-02-02 (TEL) STLMLC STLMLC [id number] Co mmon 00:00:00 00:00:00 [facility] 2022-01-31 2022-01-31 Travel 1.2.840.1 1.2.587.698 4060 643274 Methodi 00:00:00 00:00:[address] 3.430.2.7 0.2.7.3.698 Ho spita .3.987569 084.8 l .8 2022-01-31 2022-01-31 Travel 1.2.840.1 1.2.821.334 4754 634210 Methodi 00:00:00 00:00:[address] 3.430.2.7 0.2.7.3.698 Ho spita .3.849998 084.8 l .8 2022-01-27 2022-01-27 (TEL) STLMLC STLMLC [id number] Co mmon 00:00:00 00:00:00 [facility] 2021-12-30 2021-12-30 (TEL) STLMLC STLMLC [id number] Co mmon 00:00:00 00:00:00 [facility] 2021-12-19 2021-12-19 (TEL) STLMLC STLMLC [id number] Co mmon 00:00:00 00:00:00 [facility] 2021-12-13 2021-12-13 (TEL) STLMLC STLMLC [id number] Co mmon 00:00:00 00:00:00 [facility] 2021-12-12 2021-12-12 Pre-Admakira Becker 1.2.840.1 [id number] Methodi 15:00:00 16:00:00 isabelle Keller 51244.1.1 317 s t Testing 3.430.2.7 Hospit a .3.986301 l .8 2021-12-12 2021-12-12 Pre-Admakira Becker 1.2.840.1 [id number] Methodi 15:00:00 16:00:00 isabelle Keller 75952.1.1 317 s t Testing 3.430.2.7 Hospit a .3.925026 l .8 2021-12-12 2021-12-12 Travel 1.2.840.1 1.2.825.812 0744 393357 Methodi 00:00:00 00:00:[address] 3.430.2.7 0.2.7.3.698 Ho spita .3.114369 084.8 l .8 2021-12-12 2021-12-12 Travel 1.2.840.1 1.2.896.424 4643 930841 Methodi 00:00:00 00:00:[address] 3.430.2.7 0.2.7.3.698 Ho spita .3.997460 084.8 l .8 2021-12-08 2021-12-08 (TEL) STLMLC STLMLC [id number] Co mmon 00:00:00 00:00:00 [facility] 2021-12-01 2021-12-01 (TEL) STLMLC STLMLC [id number] Co mmon 00:00:00 00:00:00 [facility] 2021-11-30 2021-11-30 (TEL) STLMLC STLMLC [id number] Co mmon 00:00:00 00:00:00 [facility] 2021-11-25 2021-11-25 (TEL) STLMLC STLMLC [id number] Co mmon 00:00:00 00:00:00 [facility] 2021-11-21 2021-11-21 (TEL) STLMLC STLMLC [id number] Co mmon 00:00:00 00:00:00 [facility] 2021-11-18 2021-11-18 (TEL) STLMLC STLMLC [id number] Co mmon 00:00:00 00:00:00 [facility] 2021-11-15 2021-11-15 Office Eugenio, 1.2.840.1 [id number] 538 [id number] Methodi 13:00:00 14:01:57 Visit Jose Keller 30417.1.1 465 s t 3.430.2.7 Hospit a .3.768323 l .8 2021-11-15 2021-11-15 Prep for Tiffany, 1.2.840.1 [id number] 14113 03674 Methodi 00:00:00 00:00:00 Surgery Funmi P 37953.1.[address] 3.430.2.7 Hospit a .3.031728 l .8 2021-11-15 2021-11-15 Travel 1.2.840.1 1.2.035.834 2519 397688 Methodi 00:00:00 00:00:[address] 3.430.2.7 0.2.7.3.698 Ho spita .3.879287 084.8 l .8 2021-11-15 2021-11-15 (TEL) STLMLC STLMLC [id number] Co mmon 00:00:00 00:00:00 [facility] 2021-11-14 2021-11-14 (TEL) STLMLC STLMLC [id number] Co mmon 00:00:00 00:00:00 [facility] 2021-11-04 2021-11-04 (TEL) STLMLC STLMLC [id number] Co mmon 00:00:00 00:00:00 [facility] 2021-10-20 2021-10-20 Telephone Stephane, 1.2.840.1 [id number] 2100 393586 Methodi 00:00:00 00:00:[address] 3.430.2.7 Hospit a .3.204844 l .8 2021-10-05 2021-10-05 Documentat Chace, 1.2.840.1 [id number] 21 [id number] Methodi 00:00:00 00:00:00 ion Angel 38258.1.[address] 3.430.2.7 Hospit a .3.513440 l .8 2021-09-22 2021-09-22 Travel 1.2.840.1 1.2.369.279 8445 150090 Methodi 00:00:00 00:00:[address] 3.430.2.7 0.2.7.3.698 Ho spita .3.675914 084.8 l .8 2021-08-23 2021-08-23 Ambulatory nullFlavo MNA 44080 88856 Memoria 14:15:00 14:15:00 Pre-Reg r Neurology 06 l Estelle Saucedo 2021-08-23 2021-08-23 Ambulatory nullFlavo MNA 04072 64956 Memoria 14:15:00 14:15:00 Pre-Reg r Neurology 06 l Coffeyrich Kleinann 2021-08-23 2021-08-23 Outpatient [facility] STEFANI [id number] 465 Memoria 08:15:00 08:15:00 06 josy Lewis 2021-08-23 2021-08-23 Outpatient Anand LÁZARO MISCHER 538 [id number] 08:15:00 08:15:00 Farhan Herminia Arian 2021-07-12 2021-07-12 Ambulatory nullFlavo MNA 48785 39981 Memoria 14:15:00 14:15:00 Pre-Reg r Neurology 05 l Estelle Lewis 2021-07-12 2021-07-12 Ambulatory nullFlavo MNA 03834 77058 Memoria 14:15:00 14:15:00 Pre-Reg r Neurology 05 l Coffey Lewis 2021-07-12 2021-07-12 Outpatient Anand LÁZARO MISCHER [id number] 08:15:00 08:15:00 Farhan Mela Don 2021-06-14 2021-06-14 Telephone Courtney 1.2.840.1 [id number] Methodi 00:00:00 00:00:00 Maya 41664.1.1 224 3.430.2.7 Hospit a .3.938057 l .8 2021-06-01 2021-06-01 [id number] 465 Memoria 09:00:00 09:00:00 05 josy Saucedo 2021-05-19 2021-05-19 Ambulatory nullFlavo MNA [id number] [id number] Memoria 14:15:00 14:15:00 Pre-Reg r Neurology 04 l Estelle Saucedo 2021-05-19 2021-05-19 Ambulatory nullFlavo MNA 15291 09124 Memoria 14:15:00 14:15:00 Pre-Reg r Neurology 04 l Estelle Saucedo 2021-05-19 2021-05-19 [id number] 08:15:00 08:15:00 Farhan Mehdi Don 2021-05-10 2021-05-10 Outpatient ELIANA ELIANA [id number] Memoria 15:45:00 15:45:00 04 josy Saucedo 2021-03-31 2021-03-31 Ambulatory nullFlavo MNA 95076 45163 Memoria 13:15:00 13:15:00 Pre-Reg r Neurology 03 l Estelle Kleinann 2021-03-31 2021-03-31 Ambulatory nullFlavo MNA 80934 43724 Memoria 13:15:00 13:15:00 Pre-Reg r Neurology 03 l Estelle Kleinann 2021-03-31 2021-03-31 Outpatient STEFANI ELIANA [id number] 465 Memoria 08:15:00 08:15:00 03 josy Saucedo 2021-03-31 2021-03-31 [facility] 186 [id number] 08:15:00 08:15:00 Farhan 03 Arian 2021-02-23 2021-02-24 Outpatient nullFlavo MNA [id number] Memoria 20:00:00 04:59:59 r Neurology 02 josy Saucedo 2021-02-23 2021-02-24 Outpatient nullFlavo MNA [id number] 71642 Memoria 20:00:00 04:59:59 r Neurology 02 l Estelle Kleinann 2021-02-23 2021-02-23 Outpatient ORLIN MichelSCHER ORLINSCHER [id number] 15:00:00 23:59:59 Farhan Don 2021-02-23 2021-02-23 Outpatient [facility] IE [id number] Anitaoria 15:00:00 15:00:00 02 josy Saucedo 2020-10-14 2020-10-14 Surgery [facility] 1.2.840.114 [id number] 08:34:00 09:10:00 Greg 350.1.13.10 [place] 4.2.7.2.686 Surgical [id number] [place] [address] 2020-10-14 2020-10-14 Surgery Aleisha [facility] 1.2.840.114 [id number] [facility] 08:34:00 09:10:00 Fausto Garza 350.1.13.10 i [place] [id number] [address] 2020-10-12 2020-10-12 Sales Record Clerk Jyoti[facility] 1.2.840.114 [id number] 11:40:06 11:55:06 Visit Lab Main Greg 350.1.13.10 [place] 4.2.7.2.686 Professio [id number] [address] 2020-10-12 2020-10-12 Sales Record Clerk Jyoti, [facility] Lab Main [facility] 1.2.8 40.114 [id number] [facility] 11:40:06 11:55:06 Visit Fausto Moraes 350.1.1 3.10 ity [place] Profess[place] [phone] Nv dical [address] 2020-10-12 2020-10-12 Laboratory Only, [facility] 1.2.840.114 [id number] 11:34:36 11:49:36 Only Test Greg 350.1.13.10 [place] 4.2.7.2.686 Laie [id number] [facility] 2020-10-12 2020-10-12 Laboratory Only, [facility] Test [facility] 1.2.840. 114 [id number] [facility] 11:34:36 11:49:36 Only Fausto Moraes [place] 350.1.1 3.10 [place] [id number] [place] [address] 2020-10-12 2020-10-12 Outpatient Estevan MORAES [facility] [id number] Univers 10:45:00 10:45:00 FAUSTO adam [facility] 2020-10-12 2020-10-12 Orders Doctor ROSELIA 1.2.840.114 [id number] 00:00:00 00:00:00 Only Unassigned, CINDY 350.1.13.10 [place] [facility] 4.2.7.2.686 [id number] 009 2020-10-12 2020-10-12 Orders Doctor ROSELIA 1.2.840.114 [id number] Univers 00:00:00 00:00:00 Only Unassigned, CINDY 350.1.13.10 ity of [place] [facility] 4.2.7.2.686 [place]gr[place] as [id number] [place] [address] 2020-05-13 2020-05-14 Outpatient SUSAN WHITE [facility] 021 [id number] [place] 00:00:00 00:00:[address] 2020-05-11 2020-05-11 Outpatient AMY [facility] [id number] [place] 00:00:00 00:00:00 IMRAN [address] 2020-04-01 2020-04-01 [facility] 1.2.840.114 [id number] 079 06:36:00 10:10:00 Encounter Fausto Garza 350.1.13.10 [place] 4.2.7.2.686 Surgical [phone] [place] [address] 2020-04-01 2020-04-01 [facility] 1.2.840.114 [id number] [facility] 06:36:00 10:10:00 Encounter Fausto Garza 350.1.13.10 [place] [id number] Med ical [address] 2020-04-01 2020-04-01 Anesthesia Demetrio Christensen [facility] 1.2.840.11 [id number] 08:01:00 08:33:00 Sly Tracy Garza 350.1.13.10 [place] 4.2.7.2.686 Surgical [id number] [place] [address] 2020-04-01 2020-04-01 Anesthesia Demetrio Christensen [facility] 1.2.840.11 4 [id number] Univers 08:01:00 08:33:00 Heart Tracy Garza 350.1.13.10 [place]2.[place] [phone] [facility] [place] [address] [place] 2020-03-31 2020-03-31 Outpatient R ALEISHA [facility] [id number] Univers 09:30:00 09:30:00 FAUSTO itagus of [facility] 2020-03-30 2020-03-30 Outpatient R [facility] [id number] Univers 12:45:00 12:45:00 ity of [facility] 2020-03-30 2020-03-30 Laboratory Only, Adc Test [facility] 1.2.840. 114 [id number] Univers 11:17:56 11:32:56 Only Fausto Moraes 350.1.1 3.10 [place] [id number] [place] [address] 2020-03-30 2020-03-30 Orders Doctor ROSELIA 1.2.840.114 [id number] Univers 00:00:00 00:00:00 Only Unassigned, CINDY 350.1.13.10 it[place] [facility] 4.2.7.2.686 Negrito as [id number] [place] [address] 2020-03-25 2020-03-25 Outpatient AMY, [facility] 021 2100 [id number] [place] 00:00:00 00:00:00 IMRAN [address] 2020-03-23 2020-03-23 Sales Record Clerk Jyoti, Adc Lab Main [facility] 1.2.8 40.114 [id number] Univers 15:51:10 16:06:10 Visit Fausto Moraes 350.1.1 3.10 [place] [phone] Nv dical [address] 2020-03-23 2020-03-23 Outpatient Estevan MORAES, [facility] [id number] Univers 16:00:00 16:00:00 FAUSTO garayagus [facility] 2020-03-23 2020-03-23 Outpatient AMY, [facility] [id number] [place] 00:00:00 00:00:00 IMRKIRIT [address] 2020-03-23 2020-03-23 Outpatient MODESTA [facility] [id number] [place] 00:00:00 00:00:00 KI, [address] Results Test Description Test Time Test Comments Results Result Comments Source POCT GLUCOSE (AUTOMATED) 2022-11-07 21:58:54 Test Item Value Reference Range Interpretation Comme nts POCT GLU (test code = 8911217529) 184 mg/dL 70-110 H Lab Interpretation (test code = 71537-8) Abnormal [facility] GLUCOSE (AUTOMATED)2022-11-07 16:45:57 Test Item Value Reference Range Interpretation Comments POCT GLU (test code = 9341012828) 196 mg/dL 70-110 H Lab Interpretation (test code = Abnormal 51541-6) [facility] GLUCOSE (AUTOMATED)2022-11-07 13:12:51 Test Item Value Reference Range Interpretation Comments POCT GLU (test code = 7424703331) 164 mg/dL 70-110 H Lab Interpretation (test code = Abnormal 21824-4) [facility]22-11-06 23:00:28 Test Item Value Reference Range Interpretation Comments HBsAB (test code = Indeterminate 4353620880) HBsAb 6.20 mIU/mL Semi-Quantitative (test code = 6386226276) BRAD (test code = Unable to determine if BRAD) antibody to Hepatitis B Surface Antigen is present at levels consistent with immunity. ?Patient's immune status should be assessed with other clinical information and/or retesting in 4-6 weeks as clinically indicated. ?If any questions, please contact Clinical Chemistry Director advertising sales consultant at .Interpretati on: ?Hepatitis B Surface Antibody ? Negative - Patient is considered to be not immune to infection with HBV. ? ? Positive - Anti-HBs detected at greater than or equal to 12 mIU/mL. ?Patient is considered to be immune to infection with HBV. ? [facility] GLUCOSE (AUTOMATED)2022-11-06 21:40:13 Test Item Value Reference Range Interpretation Comments POCT GLU (test code = 1009560796) 180 mg/dL 70-110 H Lab Interpretation (test code = Abnormal 81868-5) [facility]Ag)2022-11-06 20:40:07 Test Item Value Reference Range Interpretation Comments HBsAg Semi-Quantitative (test code = 0.21 Negative 5195-3) [facility] GLUCOSE (AUTOMATED)2022-11-06 16:28:02 Test Item Value Reference Range Interpretation Comments POCT GLU (test code = 8459365372) 177 mg/dL 70-110 H Lab Interpretation (test code = Abnormal 61914-5) [facility] [id number] 15:24:24 Test Item Value Reference Range Interpretation Comments TROPONIN I (test code = 0.047 ng/mL <=0.034 H 5313185342) BRAD (test code = BRAD) Reference (Normal) [...] biotin. Lab Interpretation Abnormal (test code = 14154-9) [facility] GLUCOSE (AUTOMATED)2022-11-06 12:43:24 Test Item Value Reference Range Interpretation Comments POCT GLU (test code = 1966959120) 158 mg/dL 70-110 H Lab Interpretation (test code = Abnormal 86742-7) [facility] GLUCOSE (AUTOMATED)2022-11-06 01:41:32 Test Item Value Reference Range Interpretation Comments POCT GLU (test code = 7845987497) 218 mg/dL 70-110 H Lab Interpretation (test code = Abnormal 89094-8) [facility] GLUCOSE (AUTOMATED)2022-11-05 22:03:11 Test Item Value Reference Range Interpretation Comments POCT GLU (test code = 4694673364) 156 mg/dL 70-110 H Lab Interpretation (test code = Abnormal 96510-4) [facility] GLUCOSE (AUTOMATED)2022-11-05 16:40:51 Test Item Value Reference Range Interpretation Comments POCT GLU (test code = 0463121043) 197 mg/dL 70-110 H Lab Interpretation (test code = Abnormal 61182-9) [facility] GLUCOSE (AUTOMATED)2022-11-05 12:59:19 Test Item Value Reference Range Interpretation Comments POCT GLU (test code = 6029392030) 126 mg/dL 70-110 H Lab Interpretation (test code = Abnormal 71578-0) [facility] [id number] 02:54:06 Test Item Value Reference Range Interpretation Comments TSH (test code = 2.59 See_Comment Biotin has been 3613135246) reported to cau se a negative bias, interpret resul ts relative to vicky colón's use of biotin. [Automated mess age] The system [employer] generated this result transmitted ref erence range: 0.45 - 4 .70 mIU/L. The refe rence range was not u sed to interpret this result as normal/abnor mal. Lab Interpretation (test Normal code = 43749-6) [facility] [id number] 02:00:37 Test Item Value Reference Range Interpretation Comments FREE T4 (test code = 1.57 See_Comment [Autom ated message] 7118447811) The system [employer] generated this result transmitted ref erence range: 0.78 - 2 .20 ng/dL:. The ref erence range was not u sed to interpret this result as normal/abnor mal. Lab Interpretation (test Normal code = 03934-2) [facility] [id number] 02:00:17 Test Item Value Reference Range Interpretation Comments FREE T3 (test code = 9607100977) 3.61 pg/mL 2.77-5.27 Lab Interpretation (test code = Normal 22751-2) [facility] (A1C)2022-11-05 01:49:39 Test Item Value Reference Range Interpretation Comments HGB A1C (test code = 4.7 % 4.0-5.7 4548-4) BRAD (test code = BRAD) Reference RangesNormal: <5.7%Prediabetes: 5.7 - 6.4%Diabetes: > 6.5% Lab Interpretation (test Normal code = 47626-9) [facility]AT[facility] [id number] 21:11:09 Test Item Value Reference Range Interpretation Comments CK (test code = 3200162896) 24 U/L 33-194 L Lab Interpretation (test code = Abnormal 01684-7) [facility]AL [id number] 21:01:09 Test Item Value Reference Range Interpretation Comments NT-proBNP (test code = 69344 pg/mL <=125 H 4286080817) BRAD (test code = BRAD) Biotin has been reported to cause a negative bias, interpret results relative to patient's use of biotin. Lab Interpretation (test Abnormal code = 46574-6) [facility] [id number] 20:42:28 Test Item Value Reference Range Interpretation Comments TROPONIN I (test code = 0.054 ng/mL <=0.034 H 7441666340) BRAD (test code = BRAD) Reference (Normal) [...] biotin. Lab Interpretation Abnormal (test code = 49786-3) [facility]OLIC PANEL (47383)2022-11-04 20:32:09 Test Item Value Reference Range Interpretation Comments NA (test code = 138 mmol/L 135-145 4209402371) K (test code = 3.0 mmol/L 3.5-5.0 L 1658402790) CL (test code = 106 mmol/L 98-108 7171267866) CO2 TOTAL (test code = 26 mmol/L 23-31 0499030385) AGAP (test code = 6 2-16 3021019277) BUN (test code = 18 mg/dL 7-23 2595318519) GLUCOSE (test code = 119 mg/dL 70-110 H 8847609384) CREATININE (test code = 2.18 mg/dL 0.50-1.04 H 7551701964) TOTAL BILI (test code = 0.6 mg/dL 0.1-1.2 6608960011) CALCIUM (test code = 9.2 mg/dL 8.6-10.6 6711534602) T PROTEIN (test code = 5.9 g/dL 6.3-8.2 L 6449547309) ALBUMIN (test code = 3.1 g/dL 3.5-5.0 L 3017559673) ALK PHOS (test code = 124 U/L 34-122 H 0627560823) ALTv (test code = 16 U/L 5-35 1742-6) AST(SGOT) (test code = 18 U/L 13-40 8414387831) eGFR (test code = 22.6 mL/min/1.73m2 2288288721) BRAD (test code = BRAD) Association of [...] tests). Lab Interpretation Abnormal (test code = 62296-7) [facility]2023-04-29 20:32:09 Test Item Value Reference Range Interpretation Comments MAGNESIUM (test code = 0898045080) 2.1 mg/dL 1.7-2.4 Lab Interpretation (test code = Normal 27537-5) [facility]2023-04-29 20:31:49 Test Item Value Reference Range Interpretation Comments PHOSPHORUS (test code = 6654665250) 3.7 mg/dL 2.5-5.0 Lab Interpretation (test code = Normal 16242-0) [facility] WITH [id number] 20:19:25 Test Item Value Reference Range Interpretation Comments WBC (test code = 6.70 See_Comment [Automated 3790-2) message] The sy stem which generated this result transmitted reference range : 4.30 - 11.10 10*3/?L. The reference range was not used to interpret this result as normal/abnormal . RBC (test code = 3.05 See_Comment L [Automated 882-8) message] The sy stem which generated this [...] (test code = 57.7 fL 39.0-49.9 H 78166-4) RDW-CV (test code = 16.7 % 12.0-15.5 H 788-0) PLT (test code = 235 See_Comment [Automated 777-3) message] The sy stem which generated this result transmitted reference range : 166 - 358 10*3/ ?L. The reference r chikis was not used to interpret this result as normal/abnormal . MPV (test code = 9.2 fL 9.5-12.9 L 00200-0) NRBC/100 WBC (test 0.0 See_Comment [Automat ed code = [id number]) message] The system which generated this result transmitted reference range : 0.0 - 10.0 /100 WBCs. The refer ence range was not u sed to interpret th is result as normal/abnormal . NRBC x10^3 (test code See_Comment [Auto mated = [id number]) message] The s ystem which generated this result transmitted reference range : 10*3/?L. The reference range was not used to interpret this result as normal/abnormal . GRAN MAT (NEUT) % 74.2 % (test code = 770-8) IMM GRAN % (test code 0.30 % = [id number]) LYMPH % (test code = 12.4 % 736-9) MONO % (test code = 9.1 % 5905-5) EOS % (test code = 3.6 % 713-8) BASO % (test code = 0.4 % 706-2) GRAN MAT x10^3(ANC) 4.97 10*3/uL 1.88-7.09 (test code = [id number]) IMM GRAN x10^3 (test 0.00-0.06 code = [id number]) LYMPH x10^3 (test code 0.83 10*3/uL 1.32-3.29 L = 731-0) MONO x10^3 (test code 0.61 10*3/uL 0.33-0.92 = 742-7) EOS x10^3 (test code = 0.24 10*3/uL 0.03-0.39 711-2) BASO x10^3 (test code 0.03 10*3/uL 0.01-0.07 = 704-7) Lab Interpretation Abnormal (test code = 52491-6) [id number]00 Test Item Value Reference Range Interpretation Comments GLUCOSE BEDSIDE (test 122 MG/DL 70-110 H Perfor med by certified code = GLUBED) turret lathe set up operator at [facility] GLUCOSE [id number] 12:13:00 Test Item Value Reference Range Interpretation Comments GLUCOSE BEDSIDE (test 156 MG/DL 70-110 H Perfor med by certified code = GLUBED) turret lathe set up operator at [facility] GLUCOSE [id number] 10:42:00 Test Item Value Reference Range Interpretation Comments GLUCOSE BEDSIDE (test 181 MG/DL 70-110 H Perfor med by certified code = GLUBED) turret lathe set up operator at [facility] GLUCOSE [id number] 20:05:00 Test Item Value Reference Range Interpretation Comments GLUCOSE BEDSIDE (test 90 MG/DL 70-110 N Perfor med by certified code = GLUBED) turret lathe set up operator at [facility] GLUCOSE [id number] 15:46:00 Test Item Value Reference Range Interpretation Comments GLUCOSE BEDSIDE (test 212 MG/DL 70-110 H Perfor med by certified code = GLUBED) turret lathe set up operator at [facility] GLUCOSE [id number] 12:44:00 Test Item Value Reference Range Interpretation Comments GLUCOSE BEDSIDE (test 120 MG/DL 70-110 H Perfor med by certified code = GLUBED) turret lathe set up operator at [facility] BASIC METABOLIC [id number] 08:34:00 Test Item Value Reference Range Interpretation [...] the recommended for bhumika for GFRby the [facility] for Adults.The GFR will not calculate if th e sex is unknown or if thepatient's ag e is <18 years. CREATININE (test 4.4 mg/dL 0.6-1.3 H code = CREAT) CALCIUM (test code = 9.5 mg/dL 8.0-10.5 N CA) [id number] 08:34:00 Test Item Value Reference Range Interpretation Comments PHOSPHOROUS (test code = PHOS) 2.3 MG/DL 2.5-4.9 L [id number] 08:34:00 Test Item Value Reference Range Interpretation Comments MAGNESIUM (test code = MAG) 2.18 mg/dL 1.80-2.40 N [id number] 08:29:00 Test Item Value Reference Range Interpretation Comments VANCOMYCIN (test code = VANCO) 20.2 mcg/mL CBC W/AUTO [id number] 08:27:00 Test Item Value Reference Range Interpretation [...] REQUIRED (test code NO = MDIFF) CALCIUM [id number] 08:20:00 Test Item Value Reference Range Interpretation Comments CALCIUM IONIZED (test code = AMILCAR) 1.21 MMOL/L 1.09-1.30 N GLUCOSE [id number] 05:39:00 Test Item Value Reference Range Interpretation Comments GLUCOSE BEDSIDE (test 175 MG/DL 70-110 H Perfor med by certified code = GLUBED) turret lathe set up operator at [facility] GLUCOSE [id number] 20:49:00 Test Item Value Reference Range Interpretation Comments GLUCOSE BEDSIDE (test 167 MG/DL 70-110 H Perfor med by certified code = GLUBED) turret lathe set up operator at [facility] GLUCOSE [id number] 17:03:00 Test Item Value Reference Range Interpretation Comments GLUCOSE BEDSIDE (test 127 MG/DL 70-110 H Perfor med by certified code = GLUBED) turret lathe set up operator at [facility] GLUCOSE [id number] 11:54:00 Test Item Value Reference Range Interpretation Comments GLUCOSE BEDSIDE (test 177 MG/DL 70-110 H Perfor med by certified code = GLUBED) turret lathe set up operator at [facility] GLUCOSE [id number] 06:39:00 Test Item Value Reference Range Interpretation Comments GLUCOSE BEDSIDE (test 153 MG/DL 70-110 H Perfor med by certified code = GLUBED) turret lathe set up operator at [facility] GLUCOSE [id number] 19:51:00 Test Item Value Reference Range Interpretation Comments GLUCOSE BEDSIDE (test 165 MG/DL 70-110 H Perfor med by certified code = GLUBED) turret lathe set up operator at [facility] GLUCOSE [id number] 17:15:00 Test Item Value Reference Range Interpretation Comments GLUCOSE BEDSIDE (test 188 MG/DL 70-110 H Perfor med by certified code = GLUBED) turret lathe set up operator at [facility] GLUCOSE [id number] 12:16:00 Test Item Value Reference Range Interpretation Comments GLUCOSE BEDSIDE (test 132 MG/DL 70-110 H Perfor med by certified code = GLUBED) turret lathe set up operator at [facility] GLUCOSE [id number] 10:20:00 Test Item Value Reference Range Interpretation Comments GLUCOSE BEDSIDE (test 131 MG/DL 70-110 H Perfor med by certified code = GLUBED) turret lathe set up operator at [facility] CBC W/AUTO [id number] 08:33:00 Test Item Value Reference Range Interpretation [...] (test code NO = MDIFF) BASIC METABOLIC [id number] 07:37:00 Test Item Value Reference Range Interpretation [...] the recommended for [facility]humika [facility] Ad[facility].The GFR will not calculate if th e sex is unknown or if thepatient's ag e is <18 years. CREATININE (test 5.1 mg/dL 0.6-1.3 H code = CREAT) CALCIUM (test code = 10.1 mg/dL 8.0-10.5 N CA) [id number] 07:37:00 Test Item Value Reference Range Interpretation Comments PHOSPHOROUS (test code = PHOS) 3.4 MG/DL 2.5-4.9 N [id number] 07:37:00 Test Item Value Reference Range Interpretation Comments MAGNESIUM (test code = MAG) 2.31 mg/dL 1.80-2.40 [id number] 06:49:00 Test Item Value Reference Range Interpretation Comments VANCOMYCIN (test code = VANCO) 19.9 mcg/mL GLUCOSE [id number] 06:17:00 Test Item Value Reference Range Interpretation Comments GLUCOSE BEDSIDE (test 173 MG/DL 70-110 H Perfor med by certified code = GLUBED) turret lathe set up operator at [facility] - NM BONE 3 [id number] 00:00:00 [facility] 1955 Sex: F FAX: Delmy Howell [phone] Laie: St: [facility] FAX: Kasey Ochoa MD [phone] FAX: Jim Mazariegos MD [phone] FAX: Adonis Canchola MD [phone] Name: JENN MOTTA [facility] : 1955 Age/S: 67/F [address] [place] [address] Unit #: [id number] Loc: G.4404 [place] [address] Phys: Kasey Mendez MD Acct: [id number] Dis Date: Status: ADM IN PHONE #: [phone] Exam Date: 2 1506 FAX #: [phone] Reason: left foot ulcers EXAMS: CPT CODE: [id number] NM BONE 3 PHASE 27461 PROCEDURE INFORMATION: Exam: NM Bone and/or Joint, [...] 1 Signed Report (CONTINUED) FAX: Delmy Howell [phone] Laie: St: ADM FAX: Kasey Ochoa [phone] FAX: Jim Mazariegos MD [phone] FAX: Adonis Canchola MD [phone] Name: JENN MOTTA [facility] LauraOrdarlene : 1955 Age/S: 67/F [address] [place] [address] Unit #: [id number] Loc: G.4404 [place] [address] Phys: Kasey Mendez MD Acct: [id number] Dis Date: Status: ADM IN PHONE #: [phone] Exam Date: 07/04/2022 1506 FAX #: [phone] Reason: left foot ulcers EXAMS: CPT CODE: [id number] NM BONE 3 PHASE 47524 (Continued) noted on the left foot plain radiographs. at 1849 Reported and signed by: Gus Moura M.D. CC: Delmy Ashton MD; Kasey Mendez MD; Jim Dhillon MD; Adonis Gaytan MD Technologist:WALDO DanielT (N)(CT); ... Trnscrd Date/Time/By: 07/04/2022 (1849) : By: [email or web address] Orig Print D/T: S: 07/04/2022 (1849) PAGE 2 Signed ReportGLUCOSE [id number] 20:34:00 Test Item Value Reference Range Interpretation Comments GLUCOSE BEDSIDE (test 167 MG/DL 70-110 H Perfor med by certified code = GLUBED) turret lathe set up operator at [facility] GLUCOSE [id number] 15:58:00 Test Item Value Reference Range Interpretation Comments GLUCOSE BEDSIDE (test 131 MG/DL 70-110 H Perfor med by certified code = GLUBED) turret lathe set up operator at [facility] GLUCOSE [id number] 11:38:00 Test Item Value Reference Range Interpretation Comments GLUCOSE BEDSIDE (test 202 MG/DL 70-110 H Perfor med by certified code = GLUBED) turret lathe set up operator at [facility] BASIC METABOLIC [id number] 08:17:00 Test Item Value Reference Range Interpretation [...] 9.2 mg/dL 8.0-10.5 N CA) CBC W/AUTO [id number] 07:54:00 Test Item Value Reference Range Interpretation [...] REQUIRED (test code NO = MDIFF) GLUCOSE [id number] 05:40:00 Test Item Value Reference Range Interpretation Comments GLUCOSE BEDSIDE (test 170 MG/DL 70-110 H Perfor med by certified code = GLUBED) turret lathe set up operator at [facility] GLUCOSE [id number] 19:15:00 Test Item Value Reference Range Interpretation Comments GLUCOSE BEDSIDE (test 154 MG/DL 70-110 H Perfor med by certified code = GLUBED) turret lathe set up operator at [facility] GLUCOSE [id number] 17:40:00 Test Item Value Reference Range Interpretation Comments GLUCOSE BEDSIDE (test 134 MG/DL 70-110 H Perfor med by certified code = GLUBED) turret lathe set up operator at [facility] GLUCOSE [id number] 11:39:00 Test Item Value Reference Range Interpretation Comments GLUCOSE BEDSIDE (test 156 MG/DL 70-110 H Perfor med by certified code = GLUBED) turret lathe set up operator at [facility] GLUCOSE [id number] 08:37:00 Test Item Value Reference Range Interpretation Comments GLUCOSE BEDSIDE (test 222 MG/DL 70-110 H Perfor med by certified code = GLUBED) turret lathe set up operator at [facility] BASIC METABOLIC [id number] 06:58:00 Test Item Value Reference Range Interpretation [...] the recommended for bhumika for GFRby the [facility] for Adults.The GFR will not calculate if th e sex is unknown or if thepatient's ag e is <18 years. CREATININE (test 3.4 mg/dL 0.6-1.3 H code = CREAT) CALCIUM (test code = 9.0 mg/dL 8.0-10.5 N CA) [id number] 06:58:00 Test Item Value Reference Range Interpretation Comments PHOSPHOROUS (test code = PHOS) 3.0 MG/DL 2.5-4.9 [id number] 06:58:00 Test Item Value Reference Range Interpretation Comments MAGNESIUM (test code = MAG) 1.89 mg/dL 1.80-2.40 N CALCIUM [id number] 06:58:00 Test Item Value Reference Range Interpretation Comments CALCIUM IONIZED (test code = AMILCAR) 1.11 MMOL/L 1.09-1.30 N CBC W/AUTO [id number] 06:47:00 Test Item Value Reference Range Interpretation [...] REQUIRED (test code NO = MDIFF) GLUCOSE [id number] 21:27:00 Test Item Value Reference Range Interpretation Comments GLUCOSE BEDSIDE (test 224 MG/DL 70-110 H Perfor med by certified code = GLUBED) turret lathe set up operator at [facility] GLUCOSE [id number] 16:50:00 Test Item Value Reference Range Interpretation Comments GLUCOSE BEDSIDE (test 174 MG/DL 70-110 H Perfor med by certified code = GLUBED) turret lathe set up operator at [facility] BASIC METABOLIC [id number] 15:03:00 Test Item Value Reference Range Interpretation [...] the recommended for bhumika for GFRby the [facility] for Adults.The GFR will not calculate if th e sex is unknown or if thepatient's ag e is <18 years. CREATININE (test 5.0 mg/dL 0.6-1.3 H code = CREAT) CALCIUM (test code = 9.1 mg/dL 8.0-10.5 N CA) POC ARTERIAL BLOOD [id number] 14:28:00 Test Item Value Reference Range Interpretation Comments POC ARTERIAL BLOOD GAS PH (test 7.343 7.35-7.45 L code = POCPHA) POC ARTERIAL BLOOD GAS PCO2 (test 47.7 mmHg 35.0-45 H code = SWHTQK5N) POC TCO2 ARTERIAL (test code = 27.4 POCTCO2) POC ARTERIAL BLOOD GAS PO2 (test 105.9 mmHg 80-100.0 H code = NWQSA1B) POC HCO3 ARTERIAL (test code = 25.9 MMOL/L 22.0-26.0 N AOLQRP9D) POC BASE EXCESS (test code = 0.2 MMOL/L -4.0-4.0 N POCBEA) POC O2 SATURATION (test code = 97.7 % 90-100 N POCO2S) BASIC METABOLIC [id number] 14:28:00 Test Item Value Reference Range Interpretation [...] = POCGLU) 188 MG/DL 70-110 H HEMOGLOBIN [id number] 14:28:00 Test Item Value Reference Range Interpretation Comments HEMOGLOBIN ABG (test code = 10.0 G/DL 11.0-15.0 L HGB/ABG) [id number] 14:28:00 Test Item Value Reference Range Interpretation Comments HEMATOCRIT (test code = HCT/ABG) 29 % 33.0-45.0 L POC LACTIC [id number] 14:28:00 Test Item Value Reference Range Interpretation Comments POC LACTIC ACID (test code = 1.3 mmol/l 0.9-1.7 N POCLAC) GLUCOSE [id number] 14:10:00 Test Item Value Reference Range Interpretation Comments GLUCOSE BEDSIDE (test 182 MG/DL 70-110 H Perfor med by certified code = GLUBED) turret lathe set up operator at [facility] GLUCOSE [id number] 10:38:00 Test Item Value Reference Range Interpretation Comments GLUCOSE BEDSIDE (test 251 MG/DL 70-110 H Perfor med by certified code = GLUBED) turret lathe set up operator at [facility] [id number] 08:07:00 Test Item Value Reference Range Interpretation Comments VANCOMYCIN (test code = VANCO) 22.4 mcg/mL 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 before dialysis on Sunday 07/01BASIC METABOLIC [id number] 07:58:00 Test Item Value Reference Range Interpretation [...] code = 9.7 mg/dL 8.0-10.5 N CA) [id number] 07:58:00 Test Item Value Reference Range Interpretation Comments PHOSPHOROUS (test code = PHOS) 4.6 MG/DL 2.5-4.9 N [id number] 07:58:00 Test Item Value Reference Range Interpretation Comments MAGNESIUM (test code = MAG) 2.20 mg/dL 1.80-2.40 N CBC W/AUTO [id number] 07:39:00 Test Item Value Reference Range Interpretation [...] REQUIRED (test code NO = MDIFF) GLUCOSE [id number] 05:20:00 Test Item Value Reference Range Interpretation Comments GLUCOSE BEDSIDE (test 148 MG/DL 70-110 H Perfor med by certified code = GLUBED) turret lathe set up operator at [facility] - XR CHEST 1 [id number] 00:00:00 [facility] : 1955 Sex: F FAX: Delmy Howell [phone] Laie: St: ADM FAX: Serge Shetty MD FAX: Jim Mazariegos MD [phone] FAX: Adonis Canchola MD [phone] Name: JENN MOTTA [facility] : 1955 Age/S: 67/F [address] [place] [address] Blvd Unit #: [id number] Loc: G.3307 [place] [address] Phys: Serge Shetty MD Acct: [id number] Dis Date: Status: ADM IN PHONE #: [phone] Exam Date: 07/01/20221536 FAX #: [phone] Reason: hypoxia EXAMS: CPT CODE: [id number] XR CHEST 1 V 37223 PROCEDURE INFORMATION: Exam: XR Chest Exam date [...] 07/01/2022 (1740) : By: [email or web address] Orig Print D/T:S: 07/01/2022 (1740) PAGE 1 Signed Report- US PELVIS [id number] 00:00:00 [facility] : 1955 Sex: F Name: JENN MOTTA [facility] : 1955 Age/S: 67 / F [address] [place] [address] Blvd Unit #: [id number] Loc: [place] [address] Phys: Adonis Gaytan MD Acct: [id number] Dis Date: Status: ADM IN PHONE #: [phone] Exam Date: 07/01/2022 1406 FAX #: [phone] Reason: DUB...2 weeks of bleedingafter 16 years of men EXAMS: CPT CODE: [id number] US PELVIS COMPLETE 55104 PROCEDURE INFORMATION: Exam: US Pelvis Complete, Transabdominal [...] Technologist: Karol Quinn RDMS(AB)(OB) Trnscb Date/Time: 07/01/2022 (4343) t.[email or web address] Orig Print D/T: S: 07/01/2022 (2863) Pro be: PAGE 1 Signed Report- US TRANSVAGINAL NON [id number] 00:00:00 [facility] : 1955 Sex: F Name: JENN MOTTA [facility] : 1955 Age/S: 67 / F [address] [place], [place] [address]vd Unit #: [id number] Loc: [place] [address] Phys: Adonis Gaytan MD Acct: [id number] Dis Date: Status: ADM IN PHONE #: [phone] Exam Date: 07/01/2022 1407 FAX #: [phone] Reason: see US Pelvic Non OB Complete EXAMS: CPT CODE: [id number] [place] [address] PROCEDURE INFORMATION: Exam: US Pelvis Complete, Transabdominal [...] CC: Delmy Ashton MD; Jim Dhillon MD; Adonsi Gaytan MD Technologist: Karol Quinn RDMS(AB)(OB) Trnscb Date/Time: 07/01/2022 (1433) DanieTTV Orig Print D/T: S: 07/01/2022 (3786) Probe: [id number] PAGE 1 Signed ReportGLUCOSE [id number] 19:48:00 Test Item Value Reference Range Interpretation Comments GLUCOSE BEDSIDE (test 143 MG/DL 70-110 H Perfor med by certified code = GLUBED) turret lathe set up operator at [facility] GLUCOSE [id number] 18:11:00 Test Item Value Reference Range Interpretation Comments GLUCOSE BEDSIDE (test 152 MG/DL 70-110 H Perfor med by certified code = GLUBED) turret lathe set up operator at [facility] GLUCOSE [id number] 13:24:00 Test Item Value Reference Range Interpretation Comments GLUCOSE BEDSIDE (test 120 MG/DL 70-110 H Perfor med by certified code = GLUBED) turret lathe set up operator at [facility] BASIC METABOLIC [id number] 09:03:00 Test Item Value Reference Range Interpretation [...] the recommended for bhumika for [facility]by the [facility] Ad[facility].The GFR will not calculate if th e sex is unknown or if thepatient's ag e is <18 years. CREATININE (test 4.1 mg/dL 0.6-1.3 H code = CREAT) CALCIUM (test code = 9.6 mg/dL 8.0-10.5 N CA) CBC W/AUTO [id number] 07:48:00 Test Item Value Reference Range Interpretation [...] REQUIRED (test NO code = MDIFF) GLUCOSE [id number] 20:09:00 Test Item Value Reference Range Interpretation Comments GLUCOSE BEDSIDE (test 172 MG/DL 70-110 H Perfor med by certified code = GLUBED) turret lathe set up operator at [facility] GLUCOSE [id number] 15:48:00 Test Item Value Reference Range Interpretation Comments GLUCOSE BEDSIDE (test 108 MG/DL 70-110 N Perfor med by certified code = GLUBED) turret lathe set up operator at [facility] GLUCOSE [id number] 11:35:00 Test Item Value Reference Range Interpretation Comments GLUCOSE BEDSIDE (test 172 MG/DL 70-110 H Perfor med by certified code = GLUBED) 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 CREATININE (test 4.8 mg/dL 0.6-1.3 H code = CREAT) CALCIUM (test code = 9.3 mg/dL 8.0-10.5 N CA) [id number] 07:50:00 Test Item Value Reference Range Interpretation Comments PHOSPHOROUS (test code = PHOS) 5.5 MG/DL 2.5-4.9 H [id number] 07:50:00 Test Item Value Reference Range Interpretation Comments MAGNESIUM (test code = MAG) 2.32 mg/dL 1.80-2.40 N CBC W/AUTO [id number] 07:28:00 Test Item Value Reference Range Interpretation [...] REQUIRED (test code NO = MDIFF) GLUCOSE [id number] 19:59:00 Test Item Value Reference Range Interpretation Comments GLUCOSE BEDSIDE (test 141 MG/DL 70-110 H Perfor med by certified code = GLUBED) turret lathe set up operator at [facility] GLUCOSE [id number] 18:58:00 Test Item Value Reference Range Interpretation Comments GLUCOSE BEDSIDE (test 156 MG/DL 70-110 H Perfor med by certified code = GLUBED) turret lathe set up operator at [facility] GLUCOSE [id number] 11:35:00 Test Item Value Reference Range Interpretation Comments GLUCOSE BEDSIDE (test 112 MG/DL 70-110 H Perfor med by certified code = GLUBED) turret lathe set up operator at [facility] GLUCOSE [id number] 09:19:00 Test Item Value Reference Range Interpretation Comments GLUCOSE BEDSIDE (test 167 MG/DL 70-110 H [facility] med by certified code = GLUBED) turret lathe set up operator at [facility] BASIC METABOLIC [id number] 08:14:00 Test Item Value Reference Range Interpretation [...] 9.1 mg/dL 8.0-10.5 N CA) BASIC METABOLIC [id number] 06:43:00 Test Item Value Reference Range Interpretation [...] be done morning of Heart CathCBC W/AUTO [id number] 06:23:00 Test Item Value Reference Range Interpretation [...] To be done morning of Heart CathGLUCOSE [id number] 21:04:00 Test Item Value Reference Range Interpretation Comments GLUCOSE BEDSIDE (test 99 MG/DL 70-110 N Perfor med by certified code = GLUBED) turret lathe set up operator at [facility] GLUCOSE [id number] 16:53:00 Test Item Value Reference Range Interpretation Comments GLUCOSE BEDSIDE (test 147 MG/DL 70-110 H Perfor med by certified code = GLUBED) turret lathe set up operator at [facility] GLUCOSE [id number] 15:43:00 Test Item Value Reference Range Interpretation Comments GLUCOSE BEDSIDE (test 154 MG/DL 70-110 H Perfor med by certified code = GLUBED) turret lathe set up operator at [facility] [id number] 14:34:00 Test Item Value Reference Range Interpretation Comments ACT-ISTAT (test code 281 SEC 74-137 H Perform ed by certified = ACTI) turret lathe set up operator at [facility] [id number] 08:42:00 Test Item Value Reference Range Interpretation Comments HGBA1C% (test code = HGBA1C%) 5.8 %A1C 4.8-6.0 N GLUCOSE [id number] 08:37:00 Test Item Value Reference Range Interpretation Comments GLUCOSE BEDSIDE (test 171 MG/DL 70-110 H Perfor med by certified code = GLUBED) turret lathe set up operator at [facility] CBC W/AUTO [id number] 08:24:00 Test Item Value Reference Range Interpretation [...] (test code NO = MDIFF) BASIC METABOLIC [id number] 07:56:00 Test Item Value Reference Range Interpretation [...] 9.4 mg/dL 8.0-10.5 N CA) COAGULATION TIME [id number] 07:05:00 Test Item Value Reference Range Interpretation Comments COAGULATION TIME 245 SECONDS Performed b y ACTIVATED (test code = certi fied turret lathe set up operator ACT) at [facility] COAGULATION TIME [id number] 07:05:00 Test Item Value Reference Range Interpretation Comments COAGULATION TIME 234 SECONDS Performed b y ACTIVATED (test code = certi fied turret lathe set up operator ACT) at [facility] GLUCOSE [id number] 06:07:00 Test Item Value Reference Range Interpretation Comments GLUCOSE BEDSIDE (test 170 MG/DL 70-110 H Perfor med by certified code = GLUBED) turret lathe set up operator at [facility] GLUCOSE [id number] 19:40:00 Test Item Value Reference Range Interpretation Comments GLUCOSE BEDSIDE (test 143 MG/DL 70-110 H Perfor med by certified code = GLUBED) turret lathe set up operator at [facility] [id number] 17:22:00 Test Item Value Reference Range Interpretation Comments ACT-ISTAT (test code 275 SEC 74-137 H Perform ed by certified = ACTI) turret lathe set up operator at [facility] [id number] 16:11:00 Test Item Value Reference Range Interpretation Comments ACT-ISTAT (test code 251 SEC 74-137 H Perform ed by certified = ACTI) turret lathe set up operator at [facility] GLUCOSE [id number] 14:10:00 Test Item Value Reference Range Interpretation Comments GLUCOSE BEDSIDE (test 192 MG/DL 70-110 H Perfor med by certified code = GLUBED) turret lathe set up operator at [facility] GLUCOSE [id number] 11:52:00 Test Item Value Reference Range Interpretation Comments GLUCOSE BEDSIDE (test 215 MG/DL 70-110 H Perfor med by certified code = GLUBED) turret lathe set up operator at [facility] COVID 19 Asymptomatic IH [id number] 10:33:00 Test Item Value Reference Range Interpretation [...] performance dep ends on theamount of vi malri (antigen) in th e sample.This adri t has not been FDA cleare d or approved; the t est hasbeen authori zed by FDA under an Em ergency Use Authorizati on(EUA) for use by labo ratories certified under the CLIA thatmeet the requirements to perform moderate, high or waivedcomplexit y tests. GLUCOSE [id number] 08:19:00 Test Item Value Reference Range Interpretation Comments GLUCOSE BEDSIDE (test 220 MG/DL 70-110 H Perfor med by certified code = GLUBED) turret lathe set up operator at [facility] COMPREHENSIVE METABOLIC [id number] 07:53:00 Test Item Value Reference Range Interpretation [...] 20-125 H TOTAL (test code = ALKP) [id number] 07:53:00 Test Item Value Reference Range Interpretation Comments PHOSPHOROUS (test code = PHOS) 6.8 MG/DL 2.5-4.9 H [id number] 07:53:00 Test Item Value Reference Range Interpretation Comments MAGNESIUM (test code = MAG) 2.24 mg/dL 1.80-2.40 GLUCOSE [id number] 06:28:00 Test Item Value Reference Range Interpretation Comments GLUCOSE BEDSIDE (test 214 MG/DL 70-110 H Perfor med by certified code = GLUBED) turret lathe set up operator at [facility] CBC W/AUTO [id number] 05:40:00 Test Item Value Reference Range Interpretation [...] To be done morning of Heart CathRBC [id number] 05:40:00 Test Item Value Reference Range Interpretation Comments ANISOCYTOSIS (test code = ANISO) SLIGHT MACROCYTOSIS (test code = MACR) FEW COMMENTS: To be done morning of Heart Cath- XR FOOT 3 + V [id number] 00:00:00 [facility] 1955 Sex: F FAX: Delmy Howell [phone] Laie: St: ADM FAX: Sybil Marques MD [phone] FAX:Jim Mazariegos MD [phone] Name: JENN MOTTA [facility] : 1955 Age/S: 67/F [address] [place] [address] Unit #: [id number] Loc: G.4421 [place] [address] Phys: Sybil Byers MD Acct: [id number] Dis Date: Status: ADM IN PHONE #: [phone] Exam Date: 06/25/2022 1610 FAX #: [phone] Reason: L foot ulcers EXAMS: CPT CODE: [id number] XR FOOT 3 + V LT 13561 PROCEDURE INFORMATION: Exam: XR Left Foot Exam [...] Trnscrd Date/Time/By: 06/26/2022 (841) : By: [email or web address] [facility] Print D/T: S: 06/26/2022 (841) PAGE 1 Signed ReportGLUCOSE [id number] 19:44:00 Test Item Value Reference Range Interpretation Comments GLUCOSE BEDSIDE (test 198 MG/DL 70-110 H Perfor med by certified code = GLUBED) turret lathe set up operator at [facility] GLUCOSE [id number] 16:13:00 Test Item Value Reference Range Interpretation Comments GLUCOSE BEDSIDE (test 189 MG/DL 70-110 H Perfor med by certified code = GLUBED) turret lathe set up operator at [facility] GLUCOSE [id number] 11:12:00 Test Item Value Reference Range Interpretation Comments GLUCOSE BEDSIDE (test 186 MG/DL 70-110 H Perfor med by certified code = GLUBED) turret lathe set up operator at [facility] CBC W/AUTO [id number] 10:49:00 Test Item Value Reference Range Interpretation [...] MDIFF) COMMENTS: Daily while on HeparinCOMPREHENSIVE METABOLIC [id number] 07:37:00 Test Item Value Reference Range Interpretation [...] recommended for bhumika for GFRby the [facility] for Adults.The GFR will [...] H TOTAL (test code = ALKP) GLUCOSE [id number] 05:53:00 Test Item Value Reference Range Interpretation Comments GLUCOSE BEDSIDE (test 159 MG/DL 70-110 H Perfor med by certified code = GLUBED) turret lathe set up operator at [facility] GLUCOSE [id number] 19:09:00 Test Item Value Reference Range Interpretation Comments GLUCOSE BEDSIDE (test 171 MG/DL 70-110 H Perfor med by certified code = GLUBED) turret lathe set up operator at [facility] GLUCOSE [id number] 15:56:00 Test Item Value Reference Range Interpretation Comments GLUCOSE BEDSIDE (test 159 MG/DL 70-110 H Perfor med by certified code = GLUBED) turret lathe set up operator at [facility] GLUCOSE [id number] 12:56:00 Test Item Value Reference Range Interpretation Comments GLUCOSE BEDSIDE (test 110 MG/DL 70-110 N Perfor med by certified code = GLUBED) turret lathe set up operator at [facility] ACUTE HEPATITIS [id number] 12:08:00 Test Item Value Reference Range Interpretation Comments AB HEPATITIS A IGM (test NON REACTIVE INDEX NON REACT. code = HAVMAB) AG HEPATITIS B SURFACE NON REACTIVE INDEX NonReactive (test code = HBSAG) AB HEPATITIS B CORE IGM NON REACTIVE INDEX NON REACT. (test code = HBCMAB) AB HEPATITIS C (test code NON REACTIVE INDEX NON REACT. = HCVAB) AB HEPATITIS B [id number] 12:08:00 Test Item Value Reference Range Interpretation Comments AB HEPATITIS B 11.7 mIU/mL See_Comment Verified by repeat SURFACE (test code = analysi s Status of HBSAB) Immunity Anti- HBs Level --- I nconsis tent with Immun ity 0.0 - 9.9Consistent with Immunity >9.9Pe rformed At: [facility] [address] [place], [place] [id number] Kota Loera MD Ph:[phone] [Automated mess age] The system [employer] generated this result transmitted ref erence range: Immunity >9.9. The reference r chikis was not used to interpret this result as normal/abnor mal. BASIC METABOLIC [id number] 08:08:00 Test Item Value Reference Range Interpretation [...] the recommended for bhumika for GFRby the [facility] for Adults.The GFR will not calculate if th e sex is unknown or if thepatient's ag e is <18 years. CREATININE (test 5.8 mg/dL 0.6-1.3 H code = CREAT) CALCIUM (test code = 9.9 mg/dL 8.0-10.5 N CA) [id number] 08:08:00 Test Item Value Reference Range Interpretation Comments PHOSPHOROUS (test code = PHOS) 7.1 MG/DL 2.5-4.9 H [id number] 08:08:00 Test Item Value Reference Range Interpretation Comments MAGNESIUM (test code = MAG) 2.64 mg/dL 1.80-2.40 H CBC W/AUTO [id number] 07:09:00 Test Item Value Reference Range Interpretation [...] = MDIFF) COMMENTS: Daily while on HeparinGLUCOSE [id number] 05:45:00 Test Item Value Reference Range Interpretation Comments GLUCOSE BEDSIDE (test 190 MG/DL 70-110 H Perfor med by certified code = GLUBED) turret lathe set up operator at [facility] GLUCOSE [id number] 19:34:00 Test Item Value Reference Range Interpretation Comments GLUCOSE BEDSIDE (test 159 MG/DL 70-110 H Perfor med by certified code = GLUBED) turret lathe set up operator at [facility] GLUCOSE [id number] 17:04:00 Test Item Value Reference Range Interpretation Comments GLUCOSE BEDSIDE (test 167 MG/DL 70-110 H Perfor med by certified code = GLUBED) turret lathe set up operator at [facility] UA RFLX MICR CULT IF [id number] 16:38:00 Test Item Value Reference Range Interpretation [...] for culture: Gross HematuriaSpecimen Description: CLEAN CATCHGLUCOSE [id number] 12:14:00 Test Item Value Reference Range Interpretation Comments GLUCOSE BEDSIDE (test 147 MG/DL 70-110 H Perfor med by certified code = GLUBED) turret lathe set up operator at [facility] THROMBOPLASTIN TIME [id number] 11:46:00 Test Item Value Reference Range Interpretation Comments THROMBOPLASTIN TIME 72.0 Seconds 25.0-39.5 H Therape utic Range: PARTIAL (test code = 50.4 - 88.3 Seconds PTT) Effective 10/22/2018 GLUCOSE [id number] 06:01:00 Test Item Value Reference Range Interpretation Comments GLUCOSE BEDSIDE (test 246 MG/DL 70-110 H Perfor med by certified code = GLUBED) turret lathe set up operator at [facility] THROMBOPLASTIN TIME [id number] 05:17:00 Test Item Value Reference Range Interpretation Comments THROMBOPLASTIN TIME 53.5 Seconds 25.0-39.5 H Therape utic Range: PARTIAL (test code = 50.4 - 88.3 Seconds PTT) Effective 10/22/2018 CBC W/AUTO [id number] 04:16:00 Test Item Value Reference Range Interpretation [...] Daily while on Heparin- CT CHEST W/O [id number] 00:00:00 [facility] : 1955 Sex: F Name: JENN MOTTA [facility] [place] : 1955 Age/S: 67 / F [address] [place] [address] Blvd Unit #:[id number] Loc: [place] [address] Phys: Aleja Funk Acct: [id number] Dis Date: Status: ADM IN PHONE #: [phone] Exam Date: 06/22/2022954 FAX #: [phone] Reason: Dyspnea, CAD EXAMS: CPT CODE: [id number] CT CHEST W/O CONTRAST 46561 PROCEDURE INFORMATION: Exam: CT Chest Without Contrast; Diagnostic Exam date and time: 06/22/2022 9:53 AM Age: 67 years old Clinical indication: Other: Dyspnea, cad TECHNIQUE: Imaging protocol: Diagnostic computed tomography of the chest without contrast.Radiation optimization: All CT scans at this facility [...] pleural effusion is unchanged. Heart: There is asmall pericardial effusion, slightly increased in size compared to prior study. Coronary arteries: Coronary artery calcifications. Lymph nodes: Unremarkable. No enlarged lymph nodes. Vasculature: Diffuse vascular calcifications. Gallbladder and bile ducts: There has been a cholecystectomy. Kidneys andureters: The left kidney is atrophic. Intraperitoneal space: There is a small amount of ascites in the visualized abdomen. Bones/joints: The patient is status post lower lumbar spinal fusion. The spinedemonstrates moderate degenerative changes at multiple levels. There [...] 1 Signed Report (CONTINUED) Name: JENN MOTTA [facility] : 1955 Age/S: 67 / F [address] [facility] Unit #: [id number] Loc: [place] [address] Phys: Aleja Funk Acct: [id number] Dis Date: Status: ADM IN PHONE #: [phone] Exam Date: 06/22/2022954 FAX #: [phone] Reason: Dyspnea, CAD EXAMS: CPT CODE: [id number] CT CHEST W/O CONTRAST 74869 (Continued) 4. There is a small pericardial effusion, slightly increased in size compared to prior study. 5. There is a small amount of ascites in the visualized abdomen. at 0904 Reported and signed by: Jim Uriostegui M.D. CC: Delmy Ashton MD; Jim Dhillon MD; Aleja OROZCO Technologist:RT Hailey(R)(CT) CTDI: DLP: Trnscb Date/Time:06/23/2022 (903) tULISSESR.MR72 Orig Print D/T: S: 06/23/2022 (903) PAGE 2 Signed ReportGLUCOSE [id number] 22:01:00 Test Item Value Reference Range Interpretation Comments GLUCOSE BEDSIDE (test 186 MG/DL 70-110 H Perfor med by certified code = GLUBED) turret lathe set up operator at [facility] THROMBOPLASTIN TIME [id number] 21:11:00 Test Item Value Reference Range Interpretation Comments THROMBOPLASTIN TIME 51.2 Seconds 25.0-39.5 H Therape utic Range: PARTIAL (test code = 50.4 - 88.3 Seconds PTT) Effective 10/22/2018 GLUCOSE [id number] 18:42:00 Test Item Value Reference Range Interpretation Comments GLUCOSE BEDSIDE (test 125 MG/DL 70-110 H Perfor med by certified code = GLUBED) turret lathe set up operator at [facility] THROMBOPLASTIN TIME [id number] 13:02:00 Test Item Value Reference Range Interpretation Comments THROMBOPLASTIN TIME 40.0 Seconds 25.0-39.5 H Therape utic Range: PARTIAL (test code = 50.4 - 88.3 Seconds PTT) Effective 10/22/2018 PTH INTACT [id number] 12:41:00 Test Item Value Reference Range Interpretation Comments PARATHYROID HORMONE INTACT (test 661.2 pg/mL 14.0-72.0 H code = PARAI) B-TYPE NATRIURETIC [id number] 12:23:00 Test Item Value Reference Range Interpretation Comments B-TYPE NATRIURETIC PEPTIDE (test 557.0 PG/ML 0-100 H code = BNP) PROTHROMBIN [id number] 12:06:00 Test Item Value Reference Range Interpretation [...] (to prevent recurrent infar ct). BASIC METABOLIC [id number] 12:04:00 Test Item Value Reference Range Interpretation [...] the recommended for bhumika for GFRby the [facility] for Adults.The GFR will not calculate if th e sex is unknown or if thepatient's ag e is <18 years. CREATININE (test 7.0 mg/dL 0.6-1.3 H code = CREAT) CALCIUM (test code = 9.4 mg/dL 8.0-10.5 N CA) CBC W/AUTO [id number] 11:56:00 Test Item Value Reference Range Interpretation [...] REQUIRED (test NO code = MDIFF) GLUCOSE [id number] 05:45:00 Test Item Value Reference Range Interpretation Comments GLUCOSE BEDSIDE (test 214 MG/DL 70-110 H Perfor med by certified code = GLUBED) turret lathe set up operator at [facility] THROMBOPLASTIN TIME [id number] 01:28:00 Test Item Value Reference Range Interpretation Comments THROMBOPLASTIN TIME 30.3 Seconds 25.0-39.5 N Therape utic Range: PARTIAL (test code = 50.4 - 88.3 Seconds PTT) Effective 10/22/2018 COMMENTS: DRAW PTT 6 HOURS AFTER INITIATION OF HEPARIN- DUP VEIN [id number] 00:00:00[facility] : 1955 Sex: F Name: JENN MOTTA [facility] : 1955 Age/S: 67 / F [address] [place] [address] Unit #: [id number] Loc: [place] [address] Phys: Aleja Funk Acct: [id number] Dis Date: Status: ADM IN PHONE #: [phone] Exam Date: 06/22/2022 1510 FAX #: [phone] Reason: Vein mapping for CABG EXAMS: CPT CODE: [id number] [facility] VEIN [facility] [address] PROCEDURE INFORMATION: Exam: US Duplex Lower Extremity Veins; Vein mapping Exam date and time: 06/22/2022 10:54 AM Age: 67 years old Clinical indication:Screening exam; Pre op; Additional info: Vein mapping for cabg TECHNIQUE: Imaging protocol: Real-time duplex ultrasound of the Lower Extremities with 2-D solis scale, color Doppler flow and spectral waveform analysis with image documentation. Complete exam focused on the bilateral lower extremity veinsfor vein mapping. COMPARISON: US DOP ART SGL [...] vein-lower le.8 mm Soft tissues: Unremarkable. IMPRESSION: Greatersaphenous vein is patent. Vein mapping as described. at 1730 Reported and signed by: Glenn Obando M.D. CC: Delmy Ashton MD; Jim Dhillon MD; Aleja OROZCO Technologist: Monty Thomas Trnscb Date/Time: 06/22/2022 (1729) t .SDR.AB53 Orig Print D/T: S: 06/22/2022 (1729) Probe: PAGE 1 Signed Report- DOP ART [facility] [id number] 00:00:00 [facility] : 1955 Sex: F Name: JENN MOTTA [facility] [place] : 1955 Age/S: 67 / F [address] [place] [address] Unit #: [id number] Loc: [place] [address] Phys: Aleja Funk Acct: [id number] Dis Date: Status: ADM IN PHONE #: [phone] Exam Date: 06/22/2022 1509 FAX #: [phone] Reason: PVD EXAMS: CPT CODE: [id number] DOP ART SGL LEVEL YEIMI 86738 PROCEDURE INFORMATION: Exam: US Duplex Lower Extremity ArteriesExam date and time: 06/22/2022 10:42 AM Age: 67 years old Clinical indication: Condition or disease;Peripheral vascular disease; Additional info: Pvd TECHNIQUE: Imaging [...] occlusion or significant stenosis. Normal waveform. Right poplitealartery: No occlusion or significant stenosis. Normal waveform. [...] and signed by: Jim Uriostegui M.D. PAGE 1Signed Report (CONTINUED) Name: JENN MOTTA [facility] [place] : 1955 Age/S: 67 / F [address] [facility] Unit #: [id number] Loc: [place] [address] Phys: Aleja Funk Acct: [id number] Dis Date: Status: ADM IN PHONE #: [phone] Exam Date: 06/22/2022 1509 FAX #: [phone] Reason: PVD EXAMS: CPT CODE: [id number] DOP ART SGL LEVEL YEIMI 02841 (Continued) CC: Delmy Werner; Jim Dhillon MD; Aleja OROZCO Technologist: Monty Thomas Trnnhb Date/Time: 06/22/2022 (1654) DanieMR72 Orig Print D/T: S: 06/22/2022 (1654) Probe: PAGE 2 Signed Report- DUP EXTRACRANIAL [id number] 00:00:00 [facility] : 1955 Sex: F Name: JENN MOTTA [facility] : 1955 Age/S: 67 / F [address] [place] [address] Unit #: [id number] Loc: [place] [address] Phys: Aleja Funk Acct: [id number] Dis Date: Status: ADM IN PHONE #: [phone] Exam Date: 06/22/2022 1509 FAX #: [phone] Reason: CABG workup EXAMS: CPT CODE: [id number] DUP EXTRACRANIAL YEIMI 88713 PROCEDURE INFORMATION: Exam: US Duplex Bilateral Extracranial [...] are normal. Right internal carotid artery: Plaque f ormation. No occlusion or stenosis. Waveforms are normal. [...] 69% stenosis to near occlusion. Near occlusion ailyn markedly narrowed lumen. Total occlusion is no detectable patent lumen. at 1807 Reported and signed by: Paramjit Villar M.D.PAGE 1 Signed Report (CONTINUED) Name: JENN MOTTA [facility] : 1955 Age/S: 67 / F [address] [place] [address] Unit #: [id number] Loc: [place] [address] Phys: Aleja Funk Acct: [id number] Dis Date: Status: ADM IN PHONE #: [phone] Exam Date: 06/22/2022 3109 FAX #: [phone] Reason: CABG workup EXAMS: CPT CODE: [id number] DUP EXTRACRANIAL YEIMI 91405 (Continued) CC: Delmy Ashton MD; Jim Dhillon MD; Aleja OROZCO Technologist: Monty Thomas Trnnhb Date/Time: 06/22/2022 (1806) t.SDR.TDO Orig Print D/T: S: 06/22/2022 (2486) Probe: PAGE 2 Signed ReportGLUCOSE [id number] 20:43:00 Test Item Value Reference Range Interpretation Comments GLUCOSE BEDSIDE (test 226 MG/DL 70-110 H Perfor med by certified code = GLUBED) turret lathe set up operator at [facility] CBC W/AUTO [id number] 20:20:00 Test Item Value Reference Range Interpretation [...] NOT ALREADY DONE WITHIN LAST 24 HOURSGLUCOSE [id number] 18:45:00 Test Item Value Reference Range Interpretation Comments GLUCOSE BEDSIDE (test 168 MG/DL 70-110 H Perfor med by certified code = GLUBED) turret lathe set up operator at [facility] PROTHROMBIN [id number] 18:42:00 Test Item Value Reference Range Interpretation [...] ALKP) COMMENTS: If not already done in [id number] 16:16:00 Test Item Value Reference Range Interpretation Comments POC glucose (test 89 mg/dL 65-99 Primary Care Provider N desire: Rubin code = 31944-1) EricDevice I D: [id number] able: RN Notified [facility]2022-10-19 16:16:00 Test Item Value Reference Range Interpretation Comments POC glucose (test 89 mg/dL 65-99 Primary Care Provider N desire: Rubin code = 83802-9) [employer] I D: [id number] able: RN Notified [facility]2022-10-19 16:16:00 Test Item Value Reference Range Interpretation Comments POC glucose (test 89 mg/dL 65-99 Primary Care Provider N desire: Rubin code = 92439-4) [employer] I D: [id number] able: RN Notified [facility]2022-10-19 16:16:00 Test Item Value Reference Range Interpretation Comments POC glucose (test 89 mg/dL 65-99 Primary Care Provider N desire: Rubin code = 18664-2) [employer] I D: [id number] able: RN Notified [facility]2022-10-19 16:16:00 Test Item Value Reference Range Interpretation Comments POC glucose (test 89 mg/dL 65-99 Primary Care Provider N desire: Rubin code = 84134-6) [employer] I D: [id number] able: RN Notified [facility]2022-10-19 16:16:00 Test Item Value Reference Range Interpretation Comments POC glucose (test 89 mg/dL 65-99 Primary Care Provider N desire: Rubin code = 76052-9) [employer] I D: [id number] able: RN Notified [facility]2022-10-19 16:16:00 Test Item Value Reference Range Interpretation Comments POC glucose (test 89 mg/dL 65-99 Primary Care Provider N desire: Rubin code = 38388-0) [employer] I D: [id number] able: RN Notified [facility] [id number] 16:16:00 Test Item Value Reference Range Interpretation Comments POC glucose (test 89 mg/dL 65-99 Primary Care Provider N desire: Rubin code = 93117-5) [employer] I D: [id number] able: RN Notified [facility] [id number] 16:16:00 Test Item Value Reference Range Interpretation Comments POC glucose (test 89 mg/dL 65-99 Primary Care Provider N desire: Rubin code = 85510-4) [employer] I D: [id number] able: RN Notified [facility] [id number] 16:16:00 Test Item Value Reference Range Interpretation Comments POC glucose (test 89 mg/dL 65-99 Primary Care Provider N desire: Rubin code = 14356-7) [employer] I D: [id number] able: RN Notified [facility] [id number] 13:03:01 Test Item Value Reference Range Interpretation Comments POC sodium (test code = 140 mmol/L 073-590 7197-0) POC potassium (test code 3.9 mmol/L 3.5-5.0 = 6298-4) POC glucose (test code = 78 mg/dL 65-99 2339-0) POC creatinine (test 4.6 mg/dl 0.5-0.9 H Operato r Name: code = 10574-3) Zhu NarMor evice ID: [id number] POC hemoglobin (test 8.5 g/dL 12.0-16.0 L code = 718-7) POC hematocrit (test 25 % 37-47 L code = 4544-3) Lab Interpretation (test Abnormal code = 40451-6) [facility] [id number] 13:03:01 Test Item Value Reference Range Interpretation Comments POC sodium (test code = 140 mmol/L 886-749 6859-0) POC potassium (test code 3.9 mmol/L 3.5-5.0 = 6298-4) POC glucose (test code = 78 mg/dL 65-99 2339-0) POC creatinine (test 4.6 mg/dl 0.5-0.9 H Operato r Name: code = 48637-7) Marko kyle ID: [id number] POC hemoglobin (test 8.5 g/dL 12.0-16.0 L code = 718-7) POC hematocrit (test 25 % 37-47 L code = 4544-3) Lab Interpretation (test Abnormal code = 41857-3) [facility]2022-10-19 13:03:01 Test Item Value Reference Range Interpretation Comments POC sodium (test code = 140 mmol/L 679-504 6095-0) POC potassium (test code 3.9 mmol/L 3.5-5.0 = 6298-4) POC glucose (test code = 78 mg/dL 65-99 2339-0) POC creatinine (test 4.6 mg/dl 0.5-0.9 H Operato r Name: code = 88227-1) Marko kyle ID: [id number] POC hemoglobin (test 8.5 g/dL 12.0-16.0 L code = 718-7) POC hematocrit (test 25 % 37-47 L code = 4544-3) Lab Interpretation (test Abnormal code = 11780-0) [facility]2022-10-19 13:03:01 Test Item Value Reference Range Interpretation Comments POC sodium (test code = 140 mmol/L 434-552 4069-0) POC potassium (test code 3.9 mmol/L 3.5-5.0 = 6298-4) POC glucose (test code = 78 mg/dL 65-99 2339-0) POC creatinine (test 4.6 mg/dl 0.5-0.9 H Operato r Name: code = 45324-1) Marko kyle ID: [id number] POC hemoglobin (test 8.5 g/dL 12.0-16.0 L code = 718-7) POC hematocrit (test 25 % 37-47 L code = 4544-3) Lab Interpretation (test Abnormal code = 47851-8) [facility]2022-10-19 13:03:01 Test Item Value Reference Range Interpretation Comments POC sodium (test code = 140 mmol/L 015-356 2244-0) POC potassium (test code 3.9 mmol/L 3.5-5.0 = 6298-4) POC glucose (test code = 78 mg/dL 65-99 2339-0) POC creatinine (test 4.6 mg/dl 0.5-0.9 H Operato r Name: code = 05212-2) Marko kyle ID: [id number] POC hemoglobin (test 8.5 g/dL 12.0-16.0 L code = 718-7) POC hematocrit (test 25 % 37-47 L code = 4544-3) Lab Interpretation (test Abnormal code = 09547-4) [facility]2022-10-19 13:03:01 Test Item Value Reference Range Interpretation Comments POC sodium (test code = 140 mmol/L 741-107 1682-0) POC potassium (test code 3.9 mmol/L 3.5-5.0 = 6298-4) POC glucose (test code = 78 mg/dL 65-99 2339-0) POC creatinine (test 4.6 mg/dl 0.5-0.9 H Operato r Name: code = 74018-2) Marko kyle ID: [id number] POC hemoglobin (test 8.5 g/dL 12.0-16.0 L code = 718-7) POC hematocrit (test 25 % 37-47 L code = 4544-3) Lab Interpretation (test Abnormal code = 13827-2) [facility]2022-10-19 13:03:01 Test Item Value Reference Range Interpretation Comments POC sodium (test code = 140 mmol/L 654-808 1847-0) POC potassium (test code 3.9 mmol/L 3.5-5.0 = 6298-4) POC glucose (test code = 78 mg/dL 65-99 2339-0) POC creatinine (test 4.6 mg/dl 0.5-0.9 H Operato r Name: code = 24723-2) Marko kyle ID: [id number] POC hemoglobin (test 8.5 g/dL 12.0-16.0 L code = 718-7) POC hematocrit (test 25 % 37-47 L code = 4544-3) Lab Interpretation (test Abnormal code = 41794-8) [facility]2022-10-19 13:03:01 Test Item Value Reference Range Interpretation Comments POC sodium (test code = 140 mmol/L 782-084 5270-0) POC potassium (test code 3.9 mmol/L 3.5-5.0 = 6298-4) POC glucose (test code = 78 mg/dL 65-99 2339-0) POC creatinine (test 4.6 mg/dl 0.5-0.9 H Operato r Name: code = 17287-2) Zhumily kyle ID: [id number] POC hemoglobin (test 8.5 g/dL 12.0-16.0 L code = 718-7) POC hematocrit (test 25 % 37-47 L code = 4544-3) Lab Interpretation (test Abnormal code = 38646-7) [facility]2022-10-19 13:03:01 Test Item Value Reference Range Interpretation Comments POC sodium (test code = 140 mmol/L 863-842 1898-0) POC potassium (test code 3.9 mmol/L 3.5-5.0 = 6298-4) POC glucose (test code = 78 mg/dL 65-99 2339-0) POC creatinine (test 4.6 mg/dl 0.5-0.9 H Operato r Name: code = 73256-4) Zhumily kyle ID: [id number] POC hemoglobin (test 8.5 g/dL 12.0-16.0 L code = 718-7) POC hematocrit (test 25 % 37-47 L code = 4544-3) Lab Interpretation (test Abnormal code = 30576-8) [facility]2022-10-19 13:03:01 Test Item Value Reference Range Interpretation Comments POC sodium (test code = 140 mmol/L 390-956 5762-0) POC potassium (test code 3.9 mmol/L 3.5-5.0 = 6298-4) POC glucose (test code = 78 mg/dL 65-99 2339-0) POC creatinine (test 4.6 mg/dl 0.5-0.9 H Operato r Name: code = 08597-6) Zhu NarMor anabella ID: [id number] POC hemoglobin (test 8.5 g/dL 12.0-16.0 L code = 718-7) POC hematocrit (test 25 % 37-47 L code = 4544-3) Lab Interpretation (test Abnormal code = 96514-9) [facility] [id number] 13:03:00 Test Item Value Reference Range Interpretation Comments Estimated GFR (test mL/min/1.73 m2 A Caterg ory Units code = 06739-1) Interpretati onG1 >=90 Normal or highG 2 60-89 Mildly decrease dG3a 45-59 Mildly to moderately decr hhyvxQ2q 30-44 Moderatel y to severely decrea sedG4 15-29 Severely decreasedG5 <15 Kidney failureThe eGFR was calculated usin g the Chronic Kidney Disease Epidemiology Collaboration ( CKD-EPI) equation. Interpretation is based on recommendati ons of the [facility] Disease Outcome s Quality Initiat hermes ([facility]) pub lished in 2013. Lab Interpretation Abnormal (test code = 24020-9) [facility] [id number] 13:03:00 Test Item Value Reference Range Interpretation Comments Estimated GFR (test 9 mL/min/1.73 m2 A Caterg ory Units code = 11105-7) Interpretati onG1 >=90 Normal or highG 2 60-89 Mildly decrease dG3a 45-59 Mildly to moderately decr bezdxL0h 30-44 Moderatel y to severely decrea sedG4 15-29 Severely decreasedG5 <15 Kidney failureThe eGFR was calculated usin g the Chronic Kidney Disease Epidemiology Collaboration ( CKD-EPI) equation. Interpretation is based on recommendati ons of the [facility] Disease Outcome s Quality Initiat hermes ([facility]KDO[facility]) pub lished in 2013. Lab Interpretation Abnormal (test code = 71528-7) [facility] [id number] 13:03:00 Test Item Value Reference Range Interpretation Comments Estimated GFR (test 9 mL/min/1.73 m2 A Caterg ory Units code = 92681-9) Interpretati onG1 >=90 Normal or highG 2 60-89 Mildly decrease dG3a 45-59 Mildly to moderately decr drkezS0y 30-44 Moderatel y to severely decrea sedG4 15-29 Severely decreasedG5 <15 Kidney failureThe eGFR was calculated usin g the Chronic Kidney Disease Epidemiology Collaboration ( CKD-EPI) equation. Interpretation is based on recommendati ons of the [facility] Disease Outcome s Quality Initiat hermes ([facility]-KDO[facility]) pub lished in 2013. Lab Interpretation Abnormal (test code = 95007-9) [facility] [id number] 13:03:00 Test Item Value Reference Range Interpretation Comments Estimated GFR (test 9 mL/min/1.73 m2 A Caterg ory Units code = 08263-5) Interpretati onG1 >=90 Normal or highG 2 60-89 Mildly decrease dG3a 45-59 Mildly to moderately decr jvcmyL9v 30-44 Moderatel y to severely decrea sedG4 15-29 Severely decreasedG5 <15 Kidney failureThe eGFR was calculated usin g the Chronic Kidney Disease Epidemiology Collaboration ( CKD-EPI) equation. Interpretation is based on recommendati ons of the [facility] Disease Outcome s Quality Initiat hermes ([facility]) pub lished in 2013. Lab Interpretation Abnormal (test code = 30035-6) [facility] [id number] 13:03:00 Test Item Value Reference Range Interpretation Comments Estimated GFR (test 9 mL/min/1.73 m2 A Caterg ory Units code = 33309-5) Interpretati onG1 >=90 Normal or highG 2 60-89 Mildly decrease dG3a 45-59 Mildly to moderately decr sbzpsX8k 30-44 Moderatel y to severely decrea sedG4 15-29 Severely decreasedG5 <15 Kidney failureThe eGFR was calculated usin g the Chronic Kidney Disease Epidemiology Collaboration ( CKD-EPI) equation. Interpretation is based on recommendati ons of the [facility] Disease Outcome s Quality Initiat hermes ([facility]) pub lished in 2013. Lab Interpretation Abnormal (test code = 40346-3) [facility] [id number] 13:03:00 Test Item Value Reference Range Interpretation Comments Estimated GFR (test 9 mL/min/1.73 m2 A Caterg ory Units code = 50695-1) Interpretati onG1 >=90 Normal or highG 2 60-89 Mildly decrease dG3a 45-59 Mildly to moderately decr dqgyyU8u 30-44 Moderatel y to severely decrea sedG4 15-29 Severely decreasedG5 <15 Kidney failureThe eGFR was calculated usin g the Chronic Kidney Disease Epidemiology Collaboration ( CKD-EPI) equation. Interpretation is based on recommendati ons of the [facility] Disease Outcome s Quality Initiat hermes ([facility]) pub lished in 2013. Lab Interpretation Abnormal (test code = 99084-5) [facility] [id number] 13:03:00 Test Item Value Reference Range Interpretation Comments Estimated GFR (test 9 mL/min/1.73 m2 A Caterg ory Units code = 43484-9) Interpretati onG1 >=90 Normal or highG 2 60-89 Mildly decrease dG3a 45-59 Mildly to moderately decr odiosD0v 30-44 Moderatel y to severely decrea sedG4 15-29 Severely decreasedG5 <15 Kidney failureThe eGFR was calculated usin g the Chronic Kidney Disease Epidemiology Collaboration ( CKD-EPI) equation. Interpretation is based on recommendati ons of the [facility] Disease Outcome s Quality Initiat hermes ([facility]) pub lished in 2013. Lab Interpretation Abnormal (test code = 01197-5) [facility] [id number] 13:03:00 Test Item Value Reference Range Interpretation Comments Estimated GFR (test 9 mL/min/1.73 m2 A Caterg ory Units code = 27120-3) Interpretati onG1 >=90 Normal or highG 2 60-89 Mildly decrease dG3a 45-59 Mildly to moderately decr gdmouU4v 30-44 Moderatel y to severely decrea sedG4 15-29 Severely decreasedG5 <15 Kidney failureThe eGFR was calculated usin g the Chronic Kidney Disease Epidemiology Collaboration ( CKD-EPI) equation. Interpretation is based on recommendati ons of the [facility] Disease Outcome s Quality Initiat hermes ([facility]) pub lished in 2013. Lab Interpretation Abnormal (test code = 52079-4) [facility] [id number] 13:03:00 Test Item Value Reference Range Interpretation Comments Estimated GFR (test 9 mL/min/1.73 m2 A Caterg ory Units code = 78532-3) Interpretati onG1 >=90 Normal or highG 2 60-89 Mildly decrease dG3a 45-59 Mildly to moderately decr mgzrmW4c 30-44 Moderatel y to severely decrea sedG4 15-29 Severely decreasedG5 <15 Kidney failureThe eGFR was calculated usin g the Chronic Kidney Disease Epidemiology Collaboration ( CKD-EPI) equation. Interpretation is based on recommendati ons of the [facility] Disease Outcome s Quality Initiat hermes ([facility]-KDOQI) pub lished in 2013. Lab Interpretation Abnormal (test code = 84114-6) [facility] [id number] 13:03:00 Test Item Value Reference Range Interpretation Comments Estimated GFR (test 9 mL/min/1.73 m2 A Luis souza Units code = 18551-2) Interpretati onG1 >=90 Normal or highG 2 60-89 Mildly decrease dG3a 45-59 Mildly to moderately decr khigvH1d 30-44 Moderatel y to severely decrea sedG4 15-29 Severely decreasedG5 <15 Kidney failureThe eGFR was calculated usin g the Chronic Kidney Disease Epidemiology Collaboration ( CKD-EPI) equation. Interpretation is based on recommendati ons of the [facility] Disease Outcome s Quality Initiat hermes ([facility]-KDO[facility]) pub lished in 2013. Lab Interpretation Abnormal (test code = 09397-2) [facility] [id number] 19:03:18 Test Item Value Reference Range Interpretation Comments Case number (test code = [id number]) Surgical pathology See link below for report (test code = PDF Lab Report 2255) Result status (test code This is Final Report = [id number]) for [id number] [facility] [id number] 19:03:18 Test Item Value Reference Range Interpretation Comments Case number (test code = [id number]) Surgical pathology See link below for report (test code = PDF Lab Report 2255) Result status (test code This is Final Report = [id number]) for [id number] [facility] [id number] 19:03:18 Test Item Value Reference Range Interpretation Comments Case number (test code = [id number]) Surgical pathology See link below for report (test code = PDF Lab Report 2255) Result status (test code This is Final Report = 1563167) for [id number] [facility] pathology [id number] 19:03:18 Test Item Value Reference Range Interpretation Comments Case number (test code = [id number]) Surgical pathology See link below for report (test code = PDF Lab Report 2255) Result status (test code This is Final Report = [id number]) for [id number] [facility] pathology [id number] 19:03:18 Test Item Value Reference Range Interpretation Comments Case number (test code = [id number]) Surgical pathology See link below for report (test code = PDF Lab Report 2255) Result status (test code This is Final Report = [id number]) for [address] pathology [id number] 19:03:18 Test Item Value Reference Range Interpretation Comments Case number (test code = [id number]) Surgical pathology See link below for report (test code = PDF Lab Report 2255) Result status (test code This is Final Report = [id number]) for [address] pathology [id number] 19:03:18 Test Item Value Reference Range Interpretation Comments Case number (test code = [id number]) Surgical pathology See link below for report (test code = PDF Lab Report 2255) Result status (test code This is Final Report = [id number]) for [id number] pathology [id number] 19:03:18 Test Item Value Reference Range Interpretation Comments Case number (test code = [id number]) Surgical pathology See link below for report (test code = PDF Lab Report 2255) Result status (test code This is Final Report = [id number]) for [id number] [place] [address] pathology [id number] 19:03:18 Test Item Value Reference Range Interpretation Comments Case number (test code = [id number]) Surgical pathology See link below for report (test code = PDF Lab Report 2255) Result status (test code This is Final Report = [id number]) for [id number] pathology [id number] 19:03:18 Test Item Value Reference Range Interpretation Comments Case number (test code = [id number]) Surgical pathology See link below for report (test code = PDF Lab Report 2254) Result status (test code This is Final Report = [id number]) for [id number] [facility] Pre/Post [id number] 10:49:53 Test Item Value Reference Range Interpretation Comments Ventricular rate (test code = 253) Atrial rate (test code = 255) TX interval (test code = 266) QRSD interval [...] in Inferior leads- [facility] Pre/Post [id number] 10:49:53 Test Item Value Reference Range Interpretation Comments Ventricular rate (test 101 code = 253) Atrial rate (test code 101 = 255) TX interval (test code 160 = 266) QRSD [...] in Inferior leads- [facility] Pre/Post [id number] 10:49:53 Test Item Value Reference Range Interpretation Comments Ventricular rate (test 101 code = 253) Atrial rate (test code 101 = 255) TX interval (test code 160 = 266) QRSD [...] in Inferior leads- [facility] Pre/Post [id number] 10:49:53 Test Item Value Reference Range Interpretation Comments Ventricular rate (test 101 code = 253) Atrial rate (test code 101 = 255) TX interval (test code 160 = 266) QRSD [...] in Inferior leads- [facility] Pre/Post [id number] 10:49:53 Test Item Value Reference Range Interpretation Comments Ventricular rate (test 101 code = 253) Atrial rate (test code 101 = 255) TX interval (test code 160 = 266) QRSD [...] in Inferior leads- [facility] Pre/Post [id number] 10:49:53 Test Item Value Reference Range Interpretation Comments Ventricular rate (test 101 code = 253) Atrial rate (test code 101 = 255) TX interval (test code 160 = 266) QRSD [...] in Inferior leads- [facility] Pre/Post [id number] 10:49:53 Test Item Value Reference Range Interpretation Comments Ventricular rate (test 101 code = 253) Atrial rate (test code 101 = 255) TX interval (test code 160 = 266) QRSD [...] in Inferior leads- [facility] Pre/Post [id number] 10:49:53 Test Item Value Reference Range Interpretation Comments Ventricular rate (test 101 code = 253) Atrial rate (test code 101 = 255) TX interval (test code 160 = 266) QRSD [...] in Inferior leads- [facility] Pre/Post [id number] 10:49:53 Test Item Value Reference Range Interpretation Comments Ventricular rate (test 101 code = 253) Atrial rate (test code 101 = 255) TX interval (test code 160 = 266) QRSD [...] in Inferior leads- [facility] Pre/Post [id number] 10:49:53 Test Item Value Reference Range Interpretation Comments Ventricular rate (test 101 code = 253) Atrial rate (test code 101 = 255) TX interval (test code 160 = 266) QRSD [...] Interpretation Comments POCT GLU (test code = 2588715454) 255 mg/dL 70-110 H Lab Interpretation (test code = Abnormal 08823-7) [facility] [id number] 12:35:00 Test Item Value Reference Range Interpretation Comments POCT Glu (age>30days) (test code = 255 mg/dL 70-110 A 3342) Lab Interpretation (test code = Abnormal 84279-8) [facility]-CoV-2 (COVID-19) RNA [Presence] in Respiratory specimen by JUANY with probe [id number] 01:15:19 Test Item Value Reference Range Interpretation Comments SARS-CoV-2 (COVID-19) RNA Not detected Not-Detected [Presence] in Respiratory specimen by JUANY with probe detection (test code = 91217-1) [facility] [id number] 12:03:00 Test Item Value Reference Range Interpretation Comments POCT Glu (age>30days) (test code = 142 mg/dL 70-110 A 3342) Lab Interpretation (test code = Abnormal 11885-8) [facility] [Presence] in Respiratory specimen by JUANY with probe [id number] 18:03:16 Test Item Value Reference Range Interpretation Comments SARS-CoV-2 (COVID-19) RNA Not detected Not-Detected [Presence] in Respiratory specimen by JUANY with probe detection (test code = 12519-1) [facility]
[2022-11-21 09:27] LABS: Absolute Lymphocytes (CBC) 0.6 K/uL (0.7-4.9); Hematocrit 21.7 % (36.0-45.0); Lymphocytes % 5.3 % (15.3-44.8); MCV 91.6 fL (80-100); MPV 6.8 fL (7.6-11.3); RBC Red Blood Cell Count 2.37 M/uL (3.86-4.86)
[2022-11-21 09:30] LABS: Protime INR 1.07
[2022-11-21 09:45] LABS: Albumin 2.3 g/dL (3.4-5.0); Bilirubin Direct 0.2 mg/dL (0-0.2); Bilirubin Indirect, Calculated 0.2 mg/dL (0.2-0.8); Bilirubin Total 0.4 mg/dL (0.2-1.0); Magnesium 1.8 mg/dL (1.6-2.4); Potassium 3.5 mEq/L (3.5-5.1); Protein, Total 6.4 g/dL (6.4-8.2); Troponin High Sensitivity 46.2 pg/mL (<58.9)
--- NOTE | 2022-11-21 10:17 | RAD REPORT ---
EXAM DESCRIPTION: US - Extremity Venous Uni Ltd - 11/21/2022 9:44 am CLINICAL HISTORY: Swelling COMPARISON: None. TECHNIQUE: Real-time sonographic evaluation of the right lower extremity deep venous system was perf ormed. FINDINGS: Normal compressibility, flow augmentation, phasic flow and spontaneous flow is identified in the right lower extremity deep venous system. No intraluminal filling defects seen. IMPRESSION: No evidence of DVT in the right lower extremity.
--- NOTE | 2022-11-21 10:19 | RAD REPORT ---
EXAM DESCRIPTION: RADChest Single View11/21/2022 9:43 am CLINICAL HISTORY: hypoxia, sob COMPARISON: Chest Single View dated 10/12/2022; Chest Single View dated 09/03/2022; Chest Single View d ated 08/26/2022; Chest Single View dated 08/11/2022 TECHNIQUE: Portable AP view of the chest. FINDINGS: Developing interstitial prominence and central predominant fluffy opacities. Left IJ dialy sis catheter unchanged in position. Decreased inspiratory effort limits evaluation. No consolidation. No pneumothorax. There may be trace right effusion. The cardiomediastinal contours are unchanged. Va scular calcifications in the left axilla IMPRESSION: Suspected pulmonary edema as above.
--- NOTE | 2022-11-21 10:23 | ER ---
Nurse's Notes [facility] Name: Meseret Gallego Age: 67 yrs Sex: Female : 1955 Arrival Date: 11/21/2022 Time: 08:58 Bed 15 Private MD: Diagnosis: Respiratory failure, unspecified with hypoxia;Anemia, unspecified;Dyspnea;Acute pulmonary edema;End stage renal disease Presentation: 11/21 09:00 Chief complaint: EMS states: patients home health nurse called for patient being short ko1 of breath, missed dialysis on Sunday. Coronavirus screen: At this time, the client does not indicate any symptoms associated with coronavirus-19. Ebola Screen: No symptoms or risks identified at this time. Initial Sepsis Screen: Does the patient meet any 2 criteria? No. Patient's initial sepsis screen is negative. Does the patient have a suspected source of infection? No. Patient's initial sepsis screen is negative. 09:00 Method Of Arrival: EMS: [facility] ko1 09:00 Risk Assessment: Do you want to hurt yourself or someone else? Patient reports no ko1 desire to harm self or others. Onset of symptoms was November 21, 2022. 09:00 Acuity: CHRISTOPHER 3 ko1 Triage Assessment: 09:28 General: Appears distressed, uncomfortable, Behavior is calm, cooperative, appropriate ko1 for age. Pain: Denies pain. Historical: - Allergies: 09:28 Codeine; ko1 09:28 Phenergan; ko1 09:28 Tape; ko1 - Home Meds: 09:28 amlodipine 10 mg tab 1 tab once daily [Active]; aspirin 81 mg Oral capsule daily ko1 [Active]; atorvastatin 40 mg Oral tab 1 tab every day at bedtime [Active]; bupropion HCl 75 mg Oral tablet 2 times per day [Active]; clopidogrel 75 mg Oral tablet daily [Active]; BRILINTA 90 mg Oral tab 1 tab 2 times per day [Active]; furosemide 80 mg Oral tab 1 tab once daily [Active]; Humalog U-100 Insulin 100 unit/mL Sub-Q crtg 50 unit twice a day [Active]; Lantus U-100 Insulin 100 unit/mL Sub-Q crtg [Active]; Insulin: Regular Sub-Q [Active]; lisinopril 5 mg Oral tab 1 tab once daily [Active]; Protonix 40 mg Oral TbEC 1 tab once daily [Active]; Vitamin D Oral daily [Active]; midodrine 10 mg Oral tab 1 tab 3 times per day [Active]; Synthroid 150 mcg Oral tablet 1 tab daily [Active]; sucralfate 1 gram Oral tab 1 tab 2 times per day [Active]; Wellbutrin XL 150 mg Oral Tb24 1 tab once daily [Active]; metoprolol tartrate 12.5 mg Oral tab 2 times per day [Active]; - PMHx: Diabetes - IDDM; Dialysis; Hypercholesterolemia; Hypertension; Hypothyroidism; ko1 Myocardial infarction; - PSHx: 2 heart stents; back; section; knee; neck; ko1 - Immunization history:: Adult Immunizations up to date. - Social history:: Smoking status: Patient/guardian denies using tobacco, but has a distant history of tobacco abuse. Screenin:00 [facility] ED Fall Risk Assessment (Adult) History of falling in the last 3 months, ko1 including since admission No falls in past 3 months (0 pts) Confusion or Disorientation No (0 pts) Intoxicated or Sedated No (0 pts) Impaired Gait No (0 pts) Mobility Assist Device Used No (0 pt) Altered Elimination No (0 pt) Score/Fall Risk Level 0 - 2 = Low Risk Oriented to surroundings, Maintained a safe environment, Educated pt \T\ family on fall prevention, incl call for assistance when getting out of bed, Assessed \T\ reinforced patient's understanding of fall precautions, Provided non-skid footwear, Hourly rounding (assess needs \T\ fall precautionary measures) done, Used ambulatory aids as needed (educated on \T\ assisted with), Used gait belt as appropriate. Abuse screen: Denies threats or abuse. Denies injuries from another. Nutritional screening: No deficits noted. Tuberculosis screening: No symptoms or risk factors identified. Assessment: 09:00 Neuro: No deficits noted. Cardiovascular: Reports shortness of breath. Respiratory: ko1 Airway is patent Trachea midline Respiratory effort is even, unlabored, Respiratory pattern is regular, symmetrical. GI: Reports diarrhea. : Reports dialysis M-W-F. EENT: No deficits noted. Derm: No deficits noted. Musculoskeletal: No deficits noted. 12:17 Reassessment: Patient appears in no apparent distress at this time. No changes from ld1 previously documented assessment. Patient and/or family updated on plan of care and expected duration. Pain level reassessed. Patient is alert, oriented x 3, equal unlabored respirations, skin warm/dry/pink. Vital Signs: 09:00 BP 131 / 63; Pulse 87; Resp 18; Temp 98.3(O); Pulse Ox 88% on R/A; ko1 10:00 BP 122 / 71; Pulse 79; Resp 18; Pulse Ox 99% on 2 lpm NC; ko1 10:26 BP 133 / 67; Pulse 74; Resp 18; Pulse Ox 97% on 1 lpm NC; ko1 11:16 BP 150 / 79; Pulse 81; Resp 18; Pulse Ox 92% on 1 lpm NC; ld1 12:17 BP 131 / 75; Pulse 82; Resp 15; Pulse Ox 95% on R/A; ld1 ED Course: 09:00 Patient has correct armband on for positive identification. Placed in gown. Bed in low ko1 position. Call light in reach. Side rails up X2. Client placed on continuous cardiac and pulse oximetry monitoring. NIBP monitoring applied. uniform room attendant on. Door closed. Noise minimized. Lights dimmed. Warm blanket given. 09:00 Maintain EMS IV. Dressing intact. Good blood return noted. Site clean \T\ dry. Gauge \T\ ko 1 site: 20g R AC. 09:03 Patient arrived in ED. ko1 09:05 Derek Crespo DO is Attending Physician. ms3 09:12 Yulia Keith, RN is Primary Nurse. ko1 09:28 Triage completed. ko1 09:28 Arm band placed on right wrist. Patient placed in an exam room, on a stretcher, on ko1 oxygen, on cardiac nurse specialist, on pulse oximetry. Patient notified of wait time. 09:45 XRAY Chest (1 view) In Process Unspecified. EDMS 09:46 US Extremity Venous Unilateral Ltd In Process Unspecified. EDMS 10:22 Abran An MD is Hospitalizing Provider. ms3 13:03 No provider procedures requiring assistance completed. Patient admitted, IV remains in ld1 place. Administered Medications: No medications were administered Medication: 13:04 VIS not applicable for this client. ld1 Outcome: 10:22 Decision to Hospitalize by Provider. ms3 13:03 Admitted to Med/surg accompanied by tech, via wheelchair, room 410, Report called to ld1 PERRI Villatoro 13:03 Condition: stable 13:03 Instructed on the need for admit. 13:36 Patient left the ED. tanja Signatures: Dispatcher [employer] EDMS Derek Crespo, DO ms3 Marcia Crespo RN RN ld1 Yulia Keith RN RN ko1
--- NOTE | 2022-11-21 10:23 | EDPHYS ---
Physician Documentation [facility] Name: Meseret Gallego Age: 67 yrs Sex: Female : 1955 Arrival Date: 11/21/2022 Time: 08:58 Bed 15 Private MD: ED Physician Derek Crespo HPI: 11/21 09:15 This 67 yrs old Female presents to ER via Unassigned with complaints of shortness of ms3 breath. 09:15 67-year-old female with past medical history of diabetes, hypertension, hyperlipidemia, ms3 myocardial infarction, end-stage renal disease with dialysis Sunday, last dialysis on Sunday presents for shortness of breath that began yesterday. Patient denies pain at this time. Patient denies alleviating factors. Patient states that shortness of breath is worse when laying flat.. Historical: - Allergies: 09:28 Codeine; ko1 09:28 Phenergan; ko1 09:28 Tape; ko1 - Home Meds: 09:28 amlodipine 10 mg tab 1 tab once daily [Active]; aspirin 81 mg Oral capsule daily ko1 [Active]; atorvastatin 40 mg Oral tab 1 tab every day at bedtime [Active]; bupropion HCl 75 mg Oral tablet 2 times per day [Active]; clopidogrel 75 mg Oral tablet daily [Active]; BRILINTA 90 mg Oral tab 1 tab 2 times per day [Active]; furosemide 80 mg Oral tab 1 tab once daily [Active]; Humalog U-100 Insulin 100 unit/mL Sub-Q crtg 50 unit twice a day [Active]; Lantus U-100 Insulin 100 unit/mL Sub-Q crtg [Active]; Insulin: Regular Sub-Q [Active]; lisinopril 5 mg Oral tab 1 tab once daily [Active]; Protonix 40 mg Oral TbEC 1 tab once daily [Active]; Vitamin D Oral daily [Active]; midodrine 10 mg Oral tab 1 tab 3 times per day [Active]; Synthroid 150 mcg Oral tablet 1 tab daily [Active]; sucralfate 1 gram Oral tab 1 tab 2 times per day [Active]; Wellbutrin XL 150 mg Oral Tb24 1 tab once daily [Active]; metoprolol tartrate 12.5 mg Oral tab 2 times per day [Active]; - PMHx: 09:28 Diabetes - IDDM; Dialysis; Hypercholesterolemia; Hypertension; Hypothyroidism; ko1 Myocardial infarction; - PSHx: 09:28 2 heart stents; back; section; knee; neck; ko1 - Immunization history:: Adult Immunizations up to date. - Social history:: Smoking status: Patient/guardian denies using tobacco, but has a distant history of tobacco abuse. ROS: 09:15 Constitutional: Negative for fever, and chills. Neck: Negative for injury, pain, and ms3 swelling, Cardiovascular: Negative for chest pain, and palpitations. 09:15 Back: Negative for injury and pain, MS/Extremity: Negative for injury and deformity, Skin: Negative for injury, rash, and discoloration. 09:15 Respiratory: Positive for shortness of breath. 09:15 All other systems are negative. Exam: 09:15 Constitutional: This is a well developed, well nourished patient who is awake, alert, ms3 and in no acute distress. Head/Face: Normocephalic, atraumatic. Neck: Trachea midline, no cervical lymphadenopathy. Supple, full range of motion without nuchal rigidity, or vertebral point tenderness. No Meningismus. Chest/axilla: Normal chest wall appearance and motion. Nontender with no deformity. Cardiovascular: Regular rate and rhythm with a normal S1 and S2. No gallops, murmurs, or rubs. Normal PMI, no JVD. No pulse deficits. Abdomen/GI: Soft, non-tender, with normal bowel sounds. No distension or tympany. No guarding or rebound. No evidence of tenderness throughout. Skin: Warm, dry with normal turgor. Normal color with no rashes, no lesions, and no evidence of cellulitis. 09:15 Respiratory: moderate respiratory distress is noted, Breath sounds: rales, that are moderate, are located in both bases. 09:33 ECG was reviewed by the Attending Physician. ms3 Vital Signs: 09:00 BP 131 / 63; Pulse 87; Resp 18; Temp 98.3(O); Pulse Ox 88% on R/A; ko1 10:00 BP 122 / 71; Pulse 79; Resp 18; Pulse Ox 99% on 2 lpm NC; ko1 10:26 BP 133 / 67; Pulse 74; Resp 18; Pulse Ox 97% on 1 lpm NC; ko1 11:16 BP 150 / 79; Pulse 81; Resp 18; Pulse Ox 92% on 1 lpm NC; ld1 12:17 BP 131 / 75; Pulse 82; Resp 15; Pulse Ox 95% on R/A; ld1 MDM: 09:05 Patient medically screened. ms3 09:15 Differential diagnosis: CHF exacerbation, pneumonia, pulmonary edema. ms3 09:39 Independent interpretation of the following test(s) in the Emergency Department X-Ray: ms3 My interpretation is CXR images reviewed by me showing pulmonary edema. 11:23 Data reviewed: vital signs, nurses notes, lab test result(s), EKG, radiologic studies, ms3 plain films, and as a result, I will admit patient. Consideration of Admission/Observation Patient was admitted/placed on observation. Management of patient was discussed with the following: Hospitalist: Dr An. Historians other than the Patient: EMS: [facility]. Care significantly affected by the following chronic conditions: Diabetes, Hypertension, Obesity, ESRD. Counseling: I had a detailed discussion with the patient and/or guardian regarding: the historical points, exam findings, and any diagnostic results supporting the discharge/admit diagnosis, lab results, radiology results, the need for further work-up and treatment in the hospital. 11/21 09:07 Order name: Basic Metabolic Panel; Complete Time: 10:08 ms3 11/21 09:07 Order name: CBC with Diff; Complete Time: 09:35 ms3 11/21 09:07 Order name: LFT's; Complete Time: 10:08 ms3 11/21 09:07 Order name: Magnesium; Complete Time: 10:08 ms3 11/21 09:07 Order name: NT PRO-BNP; Complete Time: 10:08 ms3 11/21 09:07 Order name: PT-INR; Complete Time: 09:35 ms3 11/21 09:07 Order name: Troponin HS; Complete Time: 10:08 ms3 11/21 09:07 Order name: XRAY Chest (1 view); Complete Time: 10:20 ms3 11/21 09:07 Order name: US Extremity Venous Unilateral Ltd; Complete Time: 10:20 ms3 11/21 09:07 Order name: EKG; Complete Time: 09:08 ms3 11/21 12:16 Order name: 60g Consistent Carbohydrate (ADA 1800/2000) EDMS 11/21 09:07 Order name: Cardiac monitoring; Complete Time: 09: ms3 11/21 09:07 Order name: EKG - Nurse/Tech; Complete Time: : ms3 11/21 09:07 Order name: IV Saline Lock; Complete Time: 09: ms3 11/21 09:07 Order name: Labs collected and sent; Complete Time: : ms3 11/21 09:07 Order name: O2 Per Protocol; Complete Time: : ms3 11/21 09:07 Order name: O2 Sat Monitoring; Complete Time: : ms3 EC:33 Rate is 83 beats/min. Rhythm is regular. Left axis deviation noted. QRS interval is ms3 normal. Clinical impression: NSR w/ Non-specific ST/T Changes. Interpreted by me. Reviewed by me. Administered Medications: No medications were administered Disposition Summary: 11/21/22 10:22 Hospitalization Ordered Hospitalization Status: Inpatient Admission ms3 Provider: Abran An ms3 Location: Telemetry/MedSurg (Inpatient) ms3 Condition: Stable ms3 Problem: new ms3 Symptoms: are unchanged ms3 Bed/Room Type: Standard ms3 Room Assignment: 410(11/21/22 12:20) bd Diagnosis - Respiratory failure, unspecified with hypoxia ms3 - Anemia, unspecified ms3 - Dyspnea ms3 - Acute pulmonary edema ms3 - End stage renal disease ms3 Forms: - Medication Reconciliation Form ms3 - SBAR form ms3 Signatures: Dispatcher [employer] EDMS Jennifer Tabares bd Derek Crespo DO DO ms3 Yulia Keith, RN RN ko1 Corrections: (The following items were deleted from the chart) 12:20 10:22 ms3 bd
[2022-11-21] MEDS ORDERED: ACETAMINOPHEN 325 MG TABLET PO PRN (12:10)
[2022-11-21] MEDS ORDERED: GLUCAGON 1 MG/VIAL IM PRN (12:14)
[2022-11-21] MEDS ORDERED: D50W 25 GM/50 ML SYRINGE IV PRN (12:14)
[2022-11-21] MEDS ORDERED: D10W 125 ML IV PRN (12:40)
[2022-11-21] MEDS: HYDROCODONE/APAP 5/325 MG TAB PO PRN ×2 (14:43→20:54)
[2022-11-21] MEDS ORDERED: ONDANSETRON 4 MG/2 ML VIAL IV PRN (15:23)
--- NOTE | 2022-11-21 15:26 | P.HP ---
Certification for Inpatient Patient admitted to: Inpatient With expected LOS: >2 Midnights Patient will require the following post-hospital care: None Practitioner: I am a practitioner with admitting privileges, knowledge of patient current condition, hospital course, and medical plan of care. Services: Services provided to patient in accordance with Admission requirements found in Title 42 Section 412.3 of the Code of Federal Regulations Patient History Date of Service: 11/21/22 Reason for admission: SOB History of Present Illness: Patient is a 67-year-old female with a past medical history significant for hypertension, DM 2 with neuropathy, hyperlipidemia. Hypothyroidism, UT, CAD, ESRD, depression who presents with complaint of shortness of breath onset this morning. Patient reported that she noticed right lower extremity swelling\pain yesterday. Patient rated pain as 8/10 in severity and described pain as aching in quality. Patient reported associated signs and symptoms of orthopnea, bilateral hand swelling, generalized malaise and diarrhea. Patient denies any episode of diarrhea today. She reported that she took some Imodium. Patient reported that she could not go to dialysis yesterday because she was not feeling good. Patient denies any other signs and symptoms. Symptoms are aggravated or relieved by nothing. Patient decided to present to the hospital due to worsening symptoms. Allergies codeine Allergy (Intermediate, Verified 08/04/22 13:31) Itching promethazine [From Phenergan] Allergy (Intermediate, Verified 08/04/22 13:31) Itching adhesive tape Adverse Reaction (Verified 08/04/22 13:31) Itching/Hives/Rash Home Medications: Atorvastatin Calcium [Lipitor] 40 mg PO BEDTIME 11/17/19 Furosemide 80 mg PO DAILY 09/03/20 Lisinopril [Zestril] 5 mg PO DAILY 09/03/20 Loratadine [Claritin*] 10 mg PO DAILY 09/03/20 Pantoprazole [Protonix Tab*] 40 mg PO BIDAC 30 Days #60 tab 10/20/21 Buspirone HCl [Buspar*] 5 mg PO BID 06/11/22 Levothyroxine Sodium 150 mcg PO DAILY 06/11/22 Metoprolol Succinate [Toprol Xl*] 12.5 mg PO BID 6AM 6PM tab 06/21/22 Aspirin [Aspirin EC 81 MG] 1 tab PO DAILY 08/12/22 Cholecalciferol (Vitamin D3) [Vitamin D 1000 Iu Tab*] 1 cap PO DAILY 08/12/22 Midodrine HCl 5 mg PO PRN 08/27/22 buPROPion HCL [Bupropion HCl Sr] 150 mg PO DAILY 08/27/22 calcitrioL [Rocaltrol] 0.25 mcg PO DAILY 08/27/22 Clopidogrel Bisulfate [Plavix*] 75 mg PO DAILY #30 tab 09/16/22 Cyclobenzaprine [Flexeril*] 10 mg PO TID PRN #30 tab 09/16/22 Docusate [Colace Cap*] 100 mg PO BID #60 cap 09/16/22 Ensure Max Protein 330 ml PO BID #60 can 09/16/22 Hydrocodone 7.5/APAP 325 [[place] 7.5/325 mg*] 1 tab PO Q6HP PRN #30 tab 09/16/22 Collagenase [Santyl Ointment*] 1 appl TOP DAILY #1 tube 10/26/22 Epoetin [Retacrit] 10,000 unit IV EVERY HD vial 10/26/22 Thiamine HCl [Vitamin B-1*] 200 mg PO BID #60 tab 10/26/22 Vancomycin/0.9 % Sod Chloride [Vancomycin 1 G/200Ml-0.9% NaCl] 500 mg IV AFTER EACH DIALYSIS 42 Days vial 10/26/22 - Past Medical/Surgical History Has patient received pneumonia vaccine in the past: No Diabetic: Yes -: IDDM -: Hypertension -: Hypothyroidism -: ESRD HD MWF -: hyperlipidemia -: depression -: Paralyzed Stomach -: Neuropathy -: CAD -: Back fusion -: bilateral total knee replacements -: bilateral carpal tunnel sx -: c section -: thyroidectomy -: neck fusion -: PD Cath then removed -: Cholecystectomy Psychosocial/ Personal History: Patient lives at [facility]. - Family History Mother -: Heart disease, Hypertension, Lung disease, Cancer Notes: breast ca Father -: Heart disease, Hypertension, Other (see notes) Notes: Alzheimer's - Social History Smoking Status: Former smoker Alcohol use: No CD- Drugs: No Caffeine use: No Place of Residence: Home Review of Systems General: Weakness, Other (fatigue) Eyes: Unremarkable ENT: Unremarkable Respiratory: Shortness of Breath, SOB with Excertion Cardiovascular: Unremarkable Gastrointestinal: Diarrhea Genitourinary: Unremarkable Musculoskeletal: Leg Pain, Pedal edema, Other (BIlateral hands swelling ) Integumentary: Other (Right LE wound) Neurological: Weakness Lymphatics: Unremarkable Physical Examination - Vital Signs Temperature: 98.3 F Blood Pressure: 131/75 Pulse: 82 Respirations: 15 - Physical Exam General: Alert, In no apparent distress, Oriented x3, Cooperative HEENT: Atraumatic, PERRLA, Mucous membr. moist/pink, EOMI, Sclerae nonicteric Neck: Supple, 2+ carotid pulse no bruit, No LAD, Without JVD or thyroid abnormality Respiratory: Diminished Cardiovascular: Regular rate/rhythm, Normal S1 S2, Edema Capillary refill: <2 Seconds Gastrointestinal: Normal bowel sounds, Soft and benign, No tenderness Musculoskeletal: No tenderness, Swelling Integumentary: No rashes, Other (Right foot woound ) Neurological: Normal speech, Normal tone, Normal affect Lymphatics: No axilla or inguinal lymphadenopathy - Studies Laboratory Data (last 24 hrs) 11/21/22 09:15: PT 11.8, INR 1.07 11/21/22 09:15: WBC 10.90, Hgb 7.2 L, Hct 21.7 L, Plt Count 198 11/21/22 09:15: Sodium 135 L, Potassium 3.5, BUN 56 H, Creatinine 3.51 H, Glucos e 264 H, Magnesium 1.8, Total Bilirubin 0.4, AST 11 L, ALT 14, Alkaline Phosphatase 138 H Assessment and Plan - Plan --Acute respiratory failure with hypoxia. Secondary to acute pulmonary edema. Secondary to missed dialysis. Chest x-ray indicates Suspected pulmonary edema. Patient on hemodialysis MWF. Nephrology consulted. Dialysis schedule per certification officer. Will await further recommendations. -- Acute on chronic diastolic CHF exacerbation. Daily weight and strict I/O. Dialysis management per the certification officer. Continue supportive care. --History of CAD\UT. Continue aspirin, Plavix and statin. --Depression. Continue home medication. --Hyperlipidemia. Continue statin. --Hypothyroidism. Continue Synthroid. --Hypertension. Poorly controlled. Continue home medications and hydralazine as needed. --Right heel wound. Wound care consult initiated. Continue supportive care --GERD. Continue Protonix. --DVT prophylaxis with heparin subQ Discharge Plan: Home Plan to discharge in: Greater than 2 days - Advance Directives Does patient have a Living Will: No Does patient have a Durable POA for Healthcare: Yes - Code Status/Comfort Care Code Status Assessed: Yes Physician Review: Patient Assessed, Agree with Above Assessment and Plan Critical Care: No
[2022-11-21] MEDS: INSULIN -REGULAR HUMAN 50 UNIT/0.5 ML ML SQ SCH ×2 (15:57→20:59)
[2022-11-21] MEDS ORDERED: PNEUMOCOCCAL VACCINE 0.5 ML IMVAC ONE (16:00)
--- NOTE | 2022-11-21 16:12 | CON ---
Date of Consultation: 11/21/2022 Reason For Consultation: Elevated BUN and creatinine, fluid management, hypertension, and end-stage renal disease. History Of Present Illness: This is a 67-year-old female, well known to me from the dialysis with significant past medical history of diabetes complicated with end-stage renal disease, hypertension, hyperlipidemia, CAD status post OK, chronic foot ulcer, follows up with Wound Care, the patient was in her regular state of health. The patient recently got skin graft on the foot. According to her, her leg started to swollen. For that reason, reported to the hospital. The patient denied any fever, any chills. Past Medical History: Includes; 1. Diabetes complicated with neuropathy nephropathy. 2. End-stage renal disease, on hemodialysis Sunday, Sunday, Sunday, last dialysis was on Sunday. 3. Hyperlipidemia. 4. Hypertension. 5. CAD status post PTCA. 6. Chronic wound on the foot. Allergies: NO KNOWN DRUG ALLERGIES. Past Surgical History: Includes; 1. PermCath placement. 2. PD placement and removal of the catheter. 3. PTCA. 4. EGD. 5. Graft on the foot. Family History: Positive for diabetes, hypertension, and end-stage renal disease. Social History: Denied smoking, denied drinking, denied drugs abuse. Review of Systems: Head and Neck: No red eye. No ear pain. GI: Nausea without any vomiting. : No polyuria. No dysuria. No hematuria. Reviewer Sales: No vaginal discharge. Respiratory: Has shortness of breath. Cardiovascular: Has leg swelling. Endocrine: No polydipsia. Skin: No rash. Neuro: Has neuropathy. Musculoskeletal: Has foot pain. Has leg swelling. Physical Examination: General: When I saw the patient; the patient lying in bed, comfortable, slightly shortness of breath. Vital Signs: Blood pressure 131/75, pulse of 82. Heart: S1, S2. Systolic murmur. Abdomen: Soft, nontender. Extremity: Dressing on the right foot with swelling, +1 edema. Neurological: Alert, oriented x3. No focal. Laboratory Data: Hemoglobin 7.2. Sodium 135, potassium 3.5, bicarb 35, BUN 56, creatinine 3.5, calcium 8.4. Albumin 2.3, corrected calcium is 9.8. Current Medications: The patient on include aspirin, Tylenol, Glucagon, hydrocodone. Assessment And Plan: 1. End-stage renal disease, slightly on the over volume side. The patient missed dialysis yesterday. I am going to go ahead and arrange for the dialysis today and we will challenge the patient. 2. Hypertension. We will utilize blood pressure for more ultrafiltration for the patient. 3. Anemia of chronic kidney disease. I am going to go ahead and resume Retacrit. 4. Secondary hyperparathyroidism. Calcium on the goal. We will follow up the phosphorus. 5. Swelling in the leg after graft. We will follow up with Surgery. 6. Diabetes as by primary. Thank you, Dr. An for allowing us to participate in the care of your patient. time spend exam the patient face to face , reviewing the DATA lab and Radiology, placing the order, discussing the case with the patient ,reviewing the care plan with senior project leader/team lead including the nursing staff , discussing with the hospitalist >35 min CR Voice ID: [id number] Report ID: [id number] ASHOK
[2022-11-21] MEDS ORDERED: ALBUMIN HUMAN 25% 100 ML IV ONE (16:30)
[2022-11-21] MEDS ORDERED: HYDRALAZINE HCL 20 MG/ML VIAL IV PRN (17:32)
[2022-11-21] MEDS: EPOETIN ALFA 10,000 UNIT/ML VIAL IV SCH (19:00)
[2022-11-21] MEDS: HEPARIN 5000 UNIT/ML 1 ML VIAL SQ SCH (20:55)
[2022-11-22] MEDS: HYDROCODONE/APAP 5/325 MG TAB PO PRN ×4 (03:46→23:57)
[2022-11-22 06:29] LABS: Absolute Lymphocytes (CBC) 0.4 K/uL (0.7-4.9); Lymphocytes % 4.7 % (15.3-44.8); MCV 91.6 fL (80-100); MPV 6.9 fL (7.6-11.3); RBC Red Blood Cell Count 2.41 M/uL (3.86-4.86)
[2022-11-22 06:47] LABS: Albumin 2.4 g/dL (3.4-5.0); Magnesium 1.8 mg/dL (1.6-2.4); Phosphorus 4.5 mg/dL (2.5-4.9); Potassium 3.5 mEq/L (3.5-5.1)
[2022-11-22] MEDS: INSULIN -REGULAR HUMAN 50 UNIT/0.5 ML ML SQ SCH ×4 (07:30→20:59)
[2022-11-22] MEDS: HEPARIN 5000 UNIT/ML 1 ML VIAL SQ SCH ×2 (08:33→20:59)
[2022-11-22] MEDS ORDERED: ASPIRIN 81 MG CHEWABLE TABLET PO SCH (09:00)
[2022-11-22] MEDS ORDERED: POTASSIUM CL SA 10 MEQ TAB PO ONE (09:00)
[2022-11-22] MEDS ORDERED: MAGNESIUM SULFATE 1 gm IVPB 1 GM/100 ML BAG IV ONE (09:00)
[2022-11-22] MEDS: COLLAGENASE 30 GM OINTMENT TOP SCH (10:28)
--- NOTE | 2022-11-22 11:34 | RAD REPORT ---
EXAM DESCRIPTION: RAD - Chest Single View - 11/22/2022 11:01 am CLINICAL HISTORY: SOB Chest pain. COMPARISON: Chest Single View dated 11/21/2022; Chest Single View dated 10/12/2022; Chest Single View d ated 09/03/2022; Chest Single View dated 08/26/2022 FINDINGS: Portable technique limits examination quality. Moderate bilateral pulmonary opacities are noted, slightly increased since yesterday's study, likely representing volume overload/CHF. The heart is moderately enlarged. Left venous catheter its tip in t he right atrium. IMPRESSION: Moderate volume overload versus CHF pattern. Findings are slightly worse since yesterday .
--- NOTE | 2022-11-22 11:48 | EKG ---
Test Date: 2022-11-21 Test Time: 09:16:36 Operating System Programmer: PRICILA MEASUREMENT RESULTS: Intervals: Rate: 83 MN: 160 QRSD: 102 QT: 404 QTc: 474 [place]: P: 61 MN: 160 QRS: -12 T: 72 INTERPRETIVE STATEMENTS: Sinus rhythm with occasional premature ventricular complexes Cannot rule out Anterior infarct, age undetermined Abnormal ECG Compared to ECG 10/12/2022 19:39:08 Ventricular premature complex(es) now present Right bundle-branch block no longer present Myocardial infarct finding still present Electronically Signed On 11-22-22 11:44:59 CDT by William Uribe
--- NOTE | 2022-11-22 12:28 | PN ---
Date of Progress Note: 11/22/2022 Subjective: The patient was admitted as missed her dialysis. The patient was over volume. The patient was dialyzed yesterday. We managed to remove 2.5 L. The patient complaining today from shortness of breath. Physical Examination: Vital Signs: Blood pressure 117/52, pulse of 98. Chest: Crackles bilateral. Heart: S1, S2. Systolic murmur. Abdomen: Soft, nontender. Extremities: Dressing on the right foot. Neurologic: Alert. No focality. Current Medications: 1. Aspirin. 2. Heparin. 3. Epogen. 4. Tylenol. 5. Zofran. Imaging Data: Chest x-ray still pending. Laboratory Data: Hemoglobin 7.6. Sodium 135, potassium 3.5, bicarb 26, BUN 35, creatinine 2.4, calcium 8.5, phosphorus 4.5, magnesium 1.8. BNP 31,000. Assessment And Plan: 1. End-stage renal disease with over volume. We will arrange for dialysis sequential today and we will get chest x-ray for better evaluation as the patient has extensive cardiac history. 2. Hyponatremia, going to be corrected with dialysis. 3. Hypokalemia, will be corrected with dialysis. No need for replacement. 4. Anemia of chronic kidney disease. Continue XENIA. 5. Infected graft. We will follow up with Surgery. time spend exam the patient face to face , reviewing the DATA lab and Radiology, placing the order, discussing the case with the patient ,reviewing the care plan with team assembler including the nursing staff , discussing with the hospitalist >35 min CR Voice ID: [id number] Report ID: [id number] ASHOK
[2022-11-22] MEDS: EPOETIN ALFA 10,000 UNIT/ML VIAL IV SCH (14:30)
--- NOTE | 2022-11-22 14:33 | P.PN ---
Subjective Date of Service: 11/22/22 Chief Complaint: SOB No acute events since admission. She reports that her shortness of breath is slightly improved compared to yesterday. She endorses orthopnea and edema. She reports noncompliance with hemodialysis, missing her last scheduled session. She denies chest pain or palpitations. Review of Systems 10-point ROS is otherwise unremarkable Respiratory: Shortness of Breath Cardiovascular: Orthopnea, Edema Physical Examination - Vital Signs Temperature: 97.3 F Blood Pressure: 136/69 Pulse: 98 Respirations: 20 Pulse Ox (%): 93 Assessment And Plan - Plan - Physical Exam General: Alert, In no apparent distress, Oriented x3 HEENT: Atraumatic, Mucous membr. moist/pink, Sclerae nonicteric Neck: JVD distended Respiratory: Diffuse scattered rales. No wheezes or rhonchi. Cardiovascular: Regular rate/rhythm, No murmurs, Edema (12+ BLE) Gastrointestinal: Normal bowel sounds, Soft, Non-distended, No tenderness Musculoskeletal: No clubbing Integumentary: Pressure ulcer (bilateral heels covered in clean dressing/SUJIT wrap) Neurological: Normal speech, Normal affect # Acute Hypoxic Respiratory Failure secondary to Pulmonary Edema from missed Hemodialysis with Acute on Chronic Decompensated Diastolic Congestive Heart Failure with Preserved Ejection Fraction # End-Stage Renal Disease on MWF iHD # Pulmonary Hypertension # Anemia of Chronic Kidney Disease - Consult Nephrology and spoke with Dr. Flores - recommendations appreciated - Volume removal via hemodialysis - Radiology: - Chest x-ray (11/21) = "suspected pulmonary edema as above." - Bilateral lower extremity Doppler = "no evidence of DVT in the right lower extremity." - Chest x-ray = (11/22) = "moderate volume overload versus CHF pattern. Findi ngs are slightly worse since yesterday." - Transthoracic echocardiogram (08/28/2022): "1. normal left ventricular ejection fraction 50-55% 2. mild mitral regurgitation 3. mild tricuspid regurgitation 4. moderate diastolic dysfunction 5. right ventricular systolic pressure is elevated 60-65 mmHg" - Consulted Respiratory Therapy - Supplemental oxygen to maintain SpO2 > 92% - Encouraged incentive spirometry - Continue home metoprolol, lisinopril - Daily weights - Strict I/O - Cardiac diet, 2 L fluid restriction, 2 g Na restriction # Chronic Diabetic/Pressure Heel Ulcer s/p Debridement - Consulted General Surgery and spoke with Dr. Peterson - recommendations appreciated # Coronary Artery Disease s/p PCI (08/11/2022) # Hypertension # Hyperlipidemia - Continue home aspirin, metoprolol, lisinopril, clopidogrel, atorvastatin # Hyperglycemia in Type II Diabetes Mellitus - Correction scale insulin # Hypothyroidism - Continue home levothyroxine Abran An M.D.
[2022-11-22] MEDS: METOPROLOL XL 25 MG TAB PO SCH (20:58)
[2022-11-22] MEDS: ATORVASTATIN 40 MG TAB PO SCH (20:58)
--- NOTE | 2022-11-23 00:46 | CON ---
Date of Consultation: 11/22/2022 Brief History Of Present Illness: The patient is a 67-year-old female known to me from previous admi ssions with past medical history of hypertension, diabetes, neuropathy, hyperlipidemia, severe periph eral arterial disease, hypothyroidism, myocardial infarction, coronary artery disease, end-stage gera l disease, depression, who recently was admitted to the hospital with shortness of breath. She had m issed a dialysis session previously and did have an additional dialysis session, but does not believe she got the entire dialysis session as she had missed the previous one. She therefore developed georgette rtness of breath and came to the ER with the above-stated complaints. I am consulted to see the omaira ent regarding her bilateral heel wounds, which I have been managing. Past Medical History: Severe peripheral arterial disease, diabetes, hypertension, neuropathy, hyperl ipidemia, hypothyroidism, myocardial infarction, coronary artery disease, end-stage renal disease, de pression, gastroparesis, coronary artery disease. Past Surgical History: Includes debridement of heels on multiple occasions, back fusion, bilateral t otal knee replacements, bilateral carpal tunnel surgery, , thyroidectomy, neck fusion, PD ca th placement and removal, cholecystectomy. She has had peripheral arterial interventional radiologic procedures for revascularization as well. Home Medications: Include atorvastatin, Lasix, Zestril, Claritin, Protonix, BuSpar, levothyroxine, m etoprolol, aspirin, vitamin D3, Midodrine, bupropion, calcitriol, Plavix, Flexeril, Colace, Ensure, N orco, Santyl, vitamin B1, vancomycin. Family History: Significant for heart disease and hypertension in her father as well as Alzheimer di sease, breast cancer in her mother, heart disease, hypertension, lung disease as well. Social History: She lives at [facility]. She has a positive tobacco use history. Denies alcohol or recreational drug use. Review of Systems: Ten-point review of systems other than HPI, she admits to weakness, fatigue, shortness of breath with exertion, lower extremity swelling, upper extremity swelling in her hands, and in the bilateral lowe r extremity wounds as described. Physical Examination: Vital Signs: At the time of my examination her blood pressure was 117/52, heart rate was 98, respira tory rate 24, temperature 98.2, SpO2 98% on 4 L nasal cannula. General: She is awake, alert, oriented. Psychiatric: She is appropriate. Conversive. HEENT: Normocephalic. Sclerae icteric. Mucous membranes are moist. Oropharynx is clear. Neck: Supple without JVD. Chest: Normal expansion and excursion. Cardiovascular: Regular rate and rhythm. Pulmonary: Decreased breath sounds bilaterally with soft rales bilaterally. Abdomen: Soft. Extremities: Focused examination of heels, she has good granulating tissue of her heel, particularly on the left without evidence of cellulitis or infection. The wounds are currently well dressed. Th e remainder examination of the lower extremity is unremarkable from previous exams. This is a clinic al improvement from previous exams of her ongoing wound care. Laboratory Data: Revealed a white blood cell count of 9.5, hemoglobin 7.6, hematocrit 22.0, platelet count is 187, neutrophils are 89%. Her sodium 135, potassium 3.5, chloride 104, carbon dioxide 26, BUN 35, creatinine 2.45, glucose is 128. Her proBNP is 31,081. Assessment And Plan: This is a 67-year-old woman known to me from previous wound care, who comes in with shortness of breath after missing dialysis. 1.Continue medical management per Nephrology and primary medical team. 2.With respect to her wound care, continue current wound care orders, which will include Santyl and Vashe damp to dry daily on heels and pressure reduction strategies to reduce any pressure on the heel s. These dressing should be completed daily. I will follow along with you. She can return to [facility] for ongoing wound care after she is discharged. I have explained the risks, benefits, alternati ves of the above-stated plan. The patient agreed to proceed as indicated. SOCRATES/RENÉ Voice ID: [id number] Report ID: [id number]
[2022-11-23 04:33] LABS: Hematocrit 25.5 % (36.0-45.0)
[2022-11-23 04:56] LABS: Albumin 2.3 g/dL (3.4-5.0); Phosphorus 5.4 mg/dL (2.5-4.9); Potassium 3.7 mEq/L (3.5-5.1)
[2022-11-23] MEDS: LEVOTHYROXINE SOD 0.075 MG TAB PO SCH (06:11)
[2022-11-23] MEDS: METOPROLOL XL 25 MG TAB PO SCH ×2 (06:11→17:15)
[2022-11-23] MEDS: INSULIN -REGULAR HUMAN 50 UNIT/0.5 ML ML SQ SCH ×4 (07:30→21:33)
[2022-11-23] MEDS: CLOPIDOGREL 75 MG TABLET PO SCH (08:08)
[2022-11-23] MEDS: lisinopriL 5 MG TAB PO SCH (08:08)
[2022-11-23] MEDS: ASPIRIN EC 81 MG TAB PO SCH (08:09)
[2022-11-23] MEDS: HEPARIN 5000 UNIT/ML 1 ML VIAL SQ SCH ×2 (08:09→21:23)
[2022-11-23] MEDS: COLLAGENASE 30 GM OINTMENT TOP SCH (08:11)
[2022-11-23] MEDS ORDERED: HOME MED 1 EA UNK (Levothyroxine Sodium [Levothyroxine Sodium] 150 MCG Tablet) PO SCH (09:00)
[2022-11-23] MEDS ORDERED: POTASSIUM CL SA 10 MEQ TAB PO ONE (09:00)
--- NOTE | 2022-11-23 13:01 | PN ---
Date of Progress Note: 11/23/2022 Subjective: The patient was admitted with infected graft. The patient had over volume. We had to d o extra dialysis yesterday of sequential, tolerated well. Today is her dialysis day, feeling better after the dialysis yesterday. No shortness of breath. Physical Examination: Vital Signs: Blood pressure 123/65, pulse of 74. Chest: Faint rales on the left base. Heart: S1, S2. Systolic murmur. Abdomen: Soft, nontender. Extremity: Dressing on the right foot. Neurologic: Alert, oriented x3. Severe neuropathy. No focality. Laboratory Data: Chest x-ray, cardiomegaly with congestion. Sodium 136, potassium 3.7, bicarb 25, B UN 43, creatinine 3.1, calcium 8.6, phosphorus 5.4, magnesium of 2. Hemoglobin 8.4. Current Medications: The patient on include; 1.Plavix 75. 2.Epogen. 3.Lisinopril 5 mg daily. 4.Atorvastatin. 5.Metoprolol. 6.Tylenol. Assessment And Plan: 1.End-stage renal disease, over volume, status post extra treatment yesterday, tolerated well. We w ill back the patient to her schedule today. 2.Hypertension, controlled, optimal. We will keep utilizing the blood pressure for more diuresis. 3.Anemia of chronic kidney disease. Continue XENIA. No need for transfusion. 4.Secondary hyperparathyroidism. Phosphorus and calcium on the goal. We will continue current katelyn tment. 5.Hypothyroidism. Continue current treatment. Current medications the patient on include atorvasta tin, hydralazine, lisinopril, metoprolol, levothyroxine. 6.Foot infection, graft infection. Follow up with Surgery. JOSÉ MIGUEL/RENÉ Voice ID: [id number] Report ID: [id number]
[2022-11-23] MEDS: HYDROCODONE/APAP 5/325 MG TAB PO PRN ×2 (13:24→21:32)
[2022-11-23 14:13] VITALS: BMI 29.9
--- NOTE | 2022-11-23 15:48 | P.PN ---
Subjective Date of Service: 11/23/22 Chief Complaint: SOB No acute events overnight. She underwent hemodialysis yesterday and has had some improvement in her breathing. She remains on 5 L nasal cannula. She would likely benefit from an additional hemodialysis session today. She endorses orthopnea and edema. She denies chest pain or palpitations. Review of Systems 10-point ROS is otherwise unremarkable Respiratory: Shortness of Breath Physical Examination - Vital Signs Temperature: 97.7 F Blood Pressure: 126/61 Pulse: 88 Respirations: 18 Pulse Ox (%): 93 Assessment And Plan - Plan - Physical Exam General: Alert, In no apparent distress, Oriented x3 HEENT: Atraumatic, Mucous membr. moist/pink, Sclerae nonicteric Neck: JVD not distended Respiratory: Diffuse scattered rales. No wheezes or rhonchi. Cardiovascular: Regular rate/rhythm, No murmurs, Edema (12+ BLE) Gastrointestinal: Normal bowel sounds, Soft, Non-distended, No tenderness Musculoskeletal: No clubbing Integumentary: Pressure ulcer (bilateral heels covered in clean dressing/SUJIT wrap) Neurological: Normal speech, Normal affect # Acute Hypoxic Respiratory Failure secondary to Pulmonary Edema from missed Hemodialysis with Acute on Chronic Decompensated Diastolic Congestive Heart Failure with Preserved Ejection Fraction # End-Stage Renal Disease on MWF iHD # Pulmonary Hypertension # Anemia of Chronic Kidney Disease - Consult Nephrology and spoke with Dr. Flores - recommendations appreciated - Volume removal via hemodialysis today - Radiology: - Chest x-ray (11/21) = "suspected pulmonary edema as above." - Bilateral lower extremity Doppler = "no evidence of DVT in the right lower extremity." - Chest x-ray = (11/22) = "moderate volume overload versus CHF pattern. Findings are slightly worse since yesterday." - Transthoracic echocardiogram (08/28/2022): "1. normal left ventricular ejection fraction 50-55% 2. mild mitral regurgitation 3. mild tricuspid regurgitation 4. moderate diastolic dysfunction 5. right ventricular systolic pressure is elevated 60-65 mmHg" - Consulted Respiratory Therapy - Supplemental oxygen to maintain SpO2 > 92% - Encouraged incentive spirometry - Continue home metoprolol, lisinopril - Daily weights - Strict I/O - Cardiac diet, 2 L fluid restriction, 2 g Na restriction # Chronic Diabetic/Pressure Heel Ulcer s/p Debridement - Consulted General Surgery and spoke with Dr. Peterson - recommendations appreciated Recommends no further surgical intervention at this time. # Coronary Artery Disease s/p PCI (08/11/2022) # Hypertension # Hyperlipidemia - Continue home aspirin, metoprolol, lisinopril, clopidogrel, atorvastatin # Hyperglycemia in Type II Diabetes Mellitus - Correction scale insulin # Hypothyroidism - Continue home levothyroxine Abran An M.D.
[2022-11-23] MEDS: ENSURE HIGH PROTEIN 237 ML CAN PO SCH (21:00)
[2022-11-23] MEDS: ATORVASTATIN 40 MG TAB PO SCH (21:23)
[2022-11-24 03:45] LABS: Hematocrit 21.9 % (36.0-45.0)
[2022-11-24 04:08] LABS: Albumin 2.1 g/dL (3.4-5.0); Magnesium 1.9 mg/dL (1.6-2.4); Phosphorus 5.9 mg/dL (2.5-4.9); Potassium 3.6 mEq/L (3.5-5.1)
[2022-11-24] MEDS ORDERED: POTASSIUM CL SA 10 MEQ TAB PO ONE (04:40)
[2022-11-24] MEDS: METOPROLOL XL 25 MG TAB PO SCH (06:40)
[2022-11-24] MEDS: LEVOTHYROXINE SOD 0.075 MG TAB PO SCH (06:40)
[2022-11-24] MEDS: INSULIN -REGULAR HUMAN 50 UNIT/0.5 ML ML SQ SCH ×3 (07:30→16:30)
[2022-11-24 08:08] VITALS: TEMP 97.5
[2022-11-24] MEDS: lisinopriL 5 MG TAB PO SCH (09:00)
[2022-11-24] MEDS: ENSURE HIGH PROTEIN 237 ML CAN PO SCH (09:00)
[2022-11-24] MEDS: CLOPIDOGREL 75 MG TABLET PO SCH (09:12)
[2022-11-24] MEDS: ASPIRIN EC 81 MG TAB PO SCH (09:12)
[2022-11-24] MEDS: HEPARIN 5000 UNIT/ML 1 ML VIAL SQ SCH (09:12)
[2022-11-24] MEDS: COLLAGENASE 30 GM OINTMENT TOP SCH (09:15)
[2022-11-24 10:40] VITALS: O2SAT 94
[2022-11-24 12:04] VITALS: BP 132/60
--- NOTE | 2022-11-24 14:48 | P.PN ---
Subjective Date of Service: 11/24/22 Chief Complaint: SOB Subjective: No new changes Physical Examination - Vital Signs Temperature: 97.5 F Blood Pressure: 132/60 Pulse: 81 Respirations: 17 Pulse Ox (%): 84 - Physical Exam General: In no apparent distress HEENT: Atraumatic, Normocephalic Neck: Supple, JVD not distended Respiratory: Other (Symmetric chest expansion) Cardiovascular: No rubs, No murmurs Gastrointestinal: Soft and benign, No guarding Musculoskeletal: No clubbing Integumentary: No warmth, Other (+foot wounds) Neurological: Normal speech, Normal tone Urinary: Other (No bladder distention) External genitalia: Deferred Rectal: Deferred Assessment And Plan - Plan 1. End-stage renal disease. Received HD today. 2. Hypertension, controlled. Cont current med regimen. 3. Anemia of chronic kidney disease. Continue XENIA. No need for transfusion. 4. Secondary hyperparathyroidism. Phosphorus and calcium on the goal. We will continue current treatment. 5. Hypothyroidism. Continue current treatment. Current medications the patient on include atorvastatin, hydralazine, lisinopril, metoprolol, levothyroxine. 6. Foot infection, graft infection. Follow up with Surgery. Physician Review: Patient Assessed, Agree with Above Assessment and Plan
[2022-11-24] MEDS: EPOETIN ALFA 10,000 UNIT/ML VIAL IV SCH (17:45)
[2022-11-24] MEDS: ATORVASTATIN 40 MG TAB PO SCH (20:58)
== END 2022-11-24 21:20 | disposition home health service (06) | DRG 291 ==
LOC: ER 08:58 → ERHOLD 12:09 → 4TH 13:17
PROVIDERS: ADMIT Internal Medicine; ATTEND Hospitalist
PROC: 5A1D70Z Performance of Urinary Filtration, Intermittent, Less than 6 Hours Per Day (ICD-10-PCS; principal; 2022-11-21)
DX: I13.2 Hypertensive heart and chronic kidney disease with heart failure and with stage 5 chronic kidney disease, or end stage renal disease (principal); I50.33 Acute on chronic diastolic (congestive) heart failure; N18.6 End stage renal disease; J96.01 Acute respiratory failure with hypoxia; N25.81 Secondary hyperparathyroidism of renal origin; E87.1 Hypo-osmolality and hyponatremia; T82.7XXA Infection and inflammatory reaction due to other cardiac and vascular devices, implants and grafts, initial encounter; L97.429 Non-pressure chronic ulcer of left heel and midfoot with unspecified severity; L97.419 Non-pressure chronic ulcer of right heel and midfoot with unspecified severity; E11.621 Type 2 diabetes mellitus with foot ulcer; E11.22 Type 2 diabetes mellitus with diabetic chronic kidney disease; E11.40 Type 2 diabetes mellitus with diabetic neuropathy, unspecified; E11.65 Type 2 diabetes mellitus with hyperglycemia; D63.1 Anemia in chronic kidney disease; E03.9 Hypothyroidism, unspecified; E78.00 Pure hypercholesterolemia, unspecified; F32.A Depression, unspecified; E87.6 Hypokalemia; K21.9 Gastro-esophageal reflux disease without esophagitis; I08.1 Rheumatic disorders of both mitral and tricuspid valves; I27.20 Pulmonary hypertension, unspecified; I25.10 Atherosclerotic heart disease of native coronary artery without angina pectoris; I25.2 Old myocardial infarction; Z88.8 Allergy status to other drugs, medicaments and biological substances; Z99.2 Dependence on renal dialysis; Z88.5 Allergy status to narcotic agent; Z79.4 Long term (current) use of insulin; Z95.5 Presence of coronary angioplasty implant and graft; Z79.82 Long term (current) use of aspirin; Z79.02 Long term (current) use of antithrombotics/antiplatelets; Z90.49 Acquired absence of other specified parts of digestive tract; Z79.899 Other long term (current) drug therapy; Z91.048 Other nonmedicinal substance allergy status; Z87.891 Personal history of nicotine dependence; Z96.653 Presence of artificial knee joint, bilateral; Z91.158 Patient's noncompliance with renal dialysis for other reason; Z79.890 Hormone replacement therapy
CPT/HCPCS: 36415; 71045; 80048; 80069; 80076; 82947; 83735; 83880; 84484; 85014; 85018; 85025; 85610; 90935; 93005; 93971; 94760; 99285; J1644; J1815; J3475; J3590; P9047

== ENCOUNTER 2023-01-27 15:09 | Inpatient (IN) | payer OTHER ==
--- OUTSIDE RECORDS SUMMARY | 2023-01-27 15:38 | XMS REPORT | Continuity of Care Document ---
:1955 Author Organization [facility] t Address [address] [facility] [address] [place] [address] Care Team Providers Name Role Phone Alex BURROUGHS, Graham Mcnamara Primary Care Physician [id number] Attending Clinician Unavailable Dann Hernandez Attending Clinician Unavailable Forest Schmid Attending Clinician Unavailable Joaquín Myrick Attending Clinician Unavailable Alexandra Arrieta Attending Clinician Unavailable FAUSTO MORAES Attending Clinician Unavailable Trey RAYO, Ivan Guy Attending Clinician Unavailable BROOKLYN URBAN Attending Clinician Unavailable Sarahy Ruth Attending Clinician Tavo Nickerson MD Attending Clinician Fina BURROUGHS, Duke Attending Clinician Brooklyn Urban DO Attending Clinician Leyla Lowry MD Attending Clinician Daija Ruiz RN Attending Clinician Unavailable Cori ARIAS, Katherin Ramesh Attending Clinician Adonis Gaytan Attending Clinician Unavailable Jose Becker MD Attending Clinician Benjie BURROUGHS, Reji Baldwin Attending Clinician Zenia ARIAS, Ce Attending Clinician CARSON IVERSON Attending Clinician Unavailable Yvan BURROUGHS, Jory Nguyen Attending Clinician [phone] Mao ARIAS, Corrina To Attending Clinician Doctor Unassigned, [place] Attending Clinician Unavailable Funmi Allen MA Attending [...] Attending Clinician BO CARTER Attending Clinician Unavailable [id number] Admitting Clinician Unavailable Forest Schmid Admitting Clinician Unavailable FAUSTO MORAES Admitting Clinician Unavailable TAVO NICKERSON Admitting Clinician Unavailable Tavo Nickerson MD Admitting Clinician BROOKLYN URBAN Admitting Clinician Unavailable Brooklyn Urban DO Admitting Clinician Delmy Ashton Admitting Clinician Unavailable JOSE BECKER Admitting Clinician Unavailable SUSAN WHITE Admitting Clinician Unavailable MD TUSHAR REYES Admitting Clinician Unavailable Fausto Moraes MD Admitting Clinician TUSHAR REYES Admitting Clinician Unavailable Payers Payer Name Policy Type Policy Number Effective Date Expiration Date Juan [employer]KE [employer]UM [id number] [facility]/AARP [id number] 2020 MCARE ADV 00:00:00 CHOICE PPO MEDICARE PART A [id number] 2020 \\T\\ B 00:00:00 [employer] MEDICARE 53 [id number] 2021 Common Sp rachelle 00:00:00 - [facility] Problems Condition Condition Condition Status Onset Resolution Last Treating Co mments Source Name Details Category Date Date Treatment Clinician Date Chronic Chronic Disease Active Univers combined combined 6-12 ity of systolic systolic 00:00: [place] and and 00 Medical diastolic diastolic Bran ch congestive congestive heart heart failure failure HFrEF HFrEF Disease Active Univers (heart (heart 6-09 ity of failure failure 00:00: [place] with with 00 Medical reduced reduced Branch ejection ejection fraction) fraction) Elevated Elevated Disease Active Unive rs troponin I troponin I 6-09 it y of level level 00:00: [place] 00 Medical Branch Elevated Elevated Disease Active Unive rs brain brain 6-09 ity of natriureti nat[place]ti [place] c peptide c peptide 00 Medi jose (BNP) (BNP) Branch level level Septic Septic Disease Active Univers shock shock 6-09 ity of 00:00: [place] 00 Medical Branch Fever and Fever and Disease Active Uni vers chills chills 6-08 ity of 00:00: [place] 00 Medical Branch End stage End stage Disease Active Uni vers renal renal 4-30 ity of disease disease 00:00: [place] due to due to 00 Medical benign benign Branch hypertensi hypertensi on on Dyslipidem Dyslipidem Disease Active U nivers ia ia 4-30 ity of 00:00: [place] 00 Medical Branch Essential Essential Disease Active Uni vers hypertensi hypertensi 4-30 it y of on on 00:00: [place] 00 Medical Branch Lethargy Lethargy Disease Active Unive rs 4-29 ity of 00:00: [place] 00 Medical Branch CKD CKD Disease Active Overview: Method i (chronic (chronic 5-[address] kidney kidney 00:00: g of this Hospita disease), disease), 00 note l stage V stage V might be different from the original. Added automatic ally from request for surgery [id number] ESRD (end ESRD (end Disease Active 2019- Met hodi stage stage 1-05 st renal renal 00:00: Hospita disease) disease) 00 l on on dialysis dialysis [id number] Unsteady Problem Commo n gait [facility] - [facility] Arrhythmia Arrhythmia Problem C ommon Spirit - [facility] [id number] Retinopath Problem Com mon y [facility] - [facility] [id number] Seasonal Problem Comm on allergies Spirit - [facility] [id number] PUD Problem Common (peptic Spirit ulcer - CHI disease) [facility] [id number] Body mass Problem Com mon index Spirit [BMI] - CHI 38.0-38.9, [facility] [id number] Diabetic Problem Comm on polyneurop Spirit athy - CHI associated St with type [facility] 2 diabetes Medica l mellitus Center [id number] Morbid Problem Commo n 9104 (severe) Spirit obesity - CHI due to [facility] [id number] Type 2 Problem Common diabetes Spirit mellitus - CHI with diabetic [facility] chronic Medical kidney Center disease Secondary Secondary Problem Com mon hyperparat hyperparat Sp rachelle hyroidism hyroidism, - C HI not St elsewhere [facility] classified Medica l Center Athscl Athscl Problem Common resighini resighini Spirit arteries arteries - [facility] of [facility] [facility] w s w Medical ulceration ulceration Ce nter Non-pressu Non-pressu Problem C ommon re chronic re chronic Sp rachelle ulcer of ulcer of - CHI other part other part St of right of right [facility] foot with foot with Medi jose unspecifie unspecifie Ce nter d severity d severity Chronic Chronic Problem Common congestive diastolic Spi rit heart CHF - CHI failure (congestiv e heart [facility] failure) Medical Center [id number] Stented Problem Commo n coronary Spirit artery - [facility] [id number] PAD Problem Common (periphera [facility] l artery - CHI disease) [facility] [id number] Coronary Problem Commo n artery Spirit disease - CHI involving resighini [facility] coronary Medical artery of [place] resighini heart, unspecifie d whether angina present [id number] Oxygen Problem Commo n 07 dependent Spirit - [facility] [id number] Anemia in Problem Com mon chronic Spirit illness - [facility] Allergic Non-season Problem Com mon rhinitis al [facility] allergic - [facility] rhinitis, St unspecifie [facility] d Medical chronicity Center , unspecif d trigger Dependence Dialysis Problem Com mon on renal patient [facility] dialysis [facility] Anxiety Anxiety Problem Common about about [facility] [id number] End stage Problem Comm on renal [facility] disease [facility] Hypothyroi Hypothyroi Problem C ommon dism dism [facility] Indwelling Indwelling Problem C ommon Lemons Lemons [facility] catheter catheter - [facility] present present [facility] Recurrent Risk for Problem Comm on falls falls [facility] [id number] Pressure Problem Com mon [address] [facility] right - [facility], [facility] Cholelithi Gall Problem Commo n asis bladder [facility] without stones - [facility] obstructio [facility] Hypertensi Hypertensi Problem C ommon on on [facility] Type II Uncontroll Problem Comm on diabetes ed type 2 Spiri t mellitus diabetes - [facility] without mellitus St complicati with [facility] on insulin Medical therapy Center Mixed Mixed Problem Common hyperlipid hyperlipid Sp [facility] emia emia [facility] Gastroesop GERD Problem Commo n hageal (gastroeso Spirit reflux phageal - [facility] disease reflux St disease) [facility] Vitamin D Vitamin D Problem Com mon deficiency deficiency Sp rachelle [facility] Carpal Carpal Problem Resolve 2021-08-25 Mem oria tunnel tunnel d 22:23:46 l syndrome syndrome Jacob n (disorder) (disorder) Resolved Problem 08/25/20211982 [facility] Problem Resolve 2021-08-25 Memoria delivery - delivery - d 22:23:46 l delivered delivered Herm joss (finding) (finding) Resolved Problem 08/25/2021 1985 [facility] Fistula of Fistula Problem Resolve 2021-08-25 Memoria joint of joint d 22:23:46 l (disorder) (disorder) He marc Resolved Problem 08/25/20212018 [facility] Fistula of Fistula Problem Resolve 2021-08-25 Memoria knee joint of knee d 22:23:46 l (disorder) joint Jacob n (disorder) Resolved Problem 08/25/20212020 [facility] 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 Herm joss (disorder) (disorder) Active Problem 08/25/2021 [facility] Hyperlipid Hyperlipi Problem Active 2021-08-25 Memoria emia demia 22:23:46 l (disorder) (disorder) He juanann Active Problem 08/25/2021 [facility] Paresthesi Problem Active 2021-08-25 M emoria a Paresthesi 22:23:46 l (finding) a [place] (finding) Active Problem 08/25/2021 [facility] Paresthesi Paresthes Problem Active 2021-08-25 Memoria a of hand ia of hand 22:23:46 l (finding) (finding) Herm joss Active Problem 08/25/2021 [facility] Tremor Tremor Problem Active 2021-08-25 Jairo frida (finding) (finding) 22:23:46 l Active [place] Problem 08/25/2021 [facility] Allergies, Adverse Reactions, Alerts Allergy Allergy Status Severity Reaction(s) Onset Inactive Treating Comm ents Source Name Type Date Date Clinician OXYCODON DRUG Active Hallucinates Un hellen E INGREDI 11-04 ity of 00:00: [place] 00 Medical Branch PHENERGA DRUG Active Other-Cmnt Univ ers N PLAIN 11-04 ity of 00:00: [place] 00 Medical Branch ADHESIVE Drug Active Rash Univers Class 11-04 ity of 00:00: [place] 00 Medical Branch Adhesive Propensi Active Rash Univer [...] to out drug CODEINE DRUG Active Hallucinates 2020-0 Uni vers INGREDI 03-30 ity of 00:00: [...] drug codeine DA Active U 2000- [facility] 08-06 Clear 00:00: [facility] CODEINE DA Active U HALLUCINATIO 2000-07 [facility] N 08-06 Clear 00:00: [facility] 00 [facility] No Known DA Active U 2000-07 [facility] Contrast 08-06 Clear Allergie 00:00: Hernandez s 00 [facility] No Known DA Active U 2000-07 [facility] Food 08-06 Clear Allergie 00:00: Hernandez s 00 [facility] No Known DA Active U 2000-07 [facility] Other 08-06 Clear Allergie 00:00: Hernandez s 00 [facility] Opioids Propensi Active Rash Hallucina Meth deonte - ty to 6-17 tions ( st Morphine adverse 00:00: [facility] Analogue reaction 00 craw over l s s to body).Oth drug er reaction( s): Anaphylax ishalluci nations NO KNOWN Drug Active Univers ALLERGIE Class ity of [facility] codeine codeine Active Memoria l Lewis Phenerga Phenerga Active Memori a n n l Lewis Tape Tape Active Memoria l Lewis prometha prometha Active Unknown Commo n zine zine Spirit - [facility] codeine codeine Active Unknown Common [facility] - [facility] Family History Family Member Diagnosis Comments Start Date Stop Date Source Natural father Heart disease Methodi [facility] Natural father Hypertension [facility] Natural [facility] Th[facility] Natural mother Diabetes [facility] Natural mother Hyperlipidemia Method [facility] Natural mother Hypertension [facility] Natural mother Kidney disease Method [facility] Social History Social Habit Start Date Stop Date Quantity Comments Source History of Tobacco Common Spirit - Use [facility] History SDOH University o f Alcohol Std Drinks [place] [facility] History SDOH University o f Alcohol Binge [place] [facility] al Branch History SDOH Social Unive rsity of Connections Get [place] Med ical Together Branch History SDOH Social Unive rsity of Connections Jain [place] [facility] History SDOH Social Unive rsity of Connections [place] [facility] Membership Branch History SDOH Social Unive rsity of Connections [place] [facility] Meetings Branch Gender identity [facility] Sexual orientation Method ist Hospital History SDOH 2022-12-15 2022-12-15 1 University o f Alcohol Frequency 00:00:00 00:00:00 [place] M edical Branch History SDOH Social 2022-12-15 2022-12-15 5 Unive rsity of Connections Phone 00:00:00 00:00:00 [place] M edical Branch History SDOH Social 2022-12-15 2022-12-15 5 Unive rsity of Connections Living 00:00:00 00:00:00 [place] [facility] History SDOH 2022-12-15 2022-12-15 0 University o f Physical Activity 00:00:00 00:00:00 [place] M edical DPW Branch History SDOH 2022-12-15 2022-12-15 0 University o f Physical Activity 00:00:00 00:00:00 [place] M edical MPS Branch History SDOH 2022-12-15 2022-12-15 5 University o f Financial 00:00:00 00:00:00 [place] [facility] History SDOH Food 2022-12-15 2022-12-15 1 Univers ity of Worry 00:00:00 00:00:00 [place] [facility] History SDOH Food 2022-12-15 2022-12-15 1 Univers ity of Scarcity 00:00:00 00:00:00 [place] [facility] History SDOH 2022-12-15 2022-12-15 2 University o f Transport Med 00:00:00 00:00:00 [place] Medic al Branch History SDOH 2022-12-15 2022-12-15 2 University o f Transport Non-Med 00:00:00 00:00:00 [place] M edical Branch History SDOH 2022-12-15 2022-12-15 2 University o f Housing Unable to 00:00:00 00:00:00 [place] M edical Pay Branch History SDOH 2022-12-15 2022-12-15 1 University o f Housing Places 00:00:00 00:00:00 [place] Medi jose Lived Branch History SDOH 2022-12-15 2022-12-15 2 University o f Housing Homeless 00:00:00 00:00:00 [place] Me dical Last Year Branch Exposure to 2022-10-25 2022-11-04 Not sure University SARS-CoV-2 (event) 00:00:00 13:19:00 [facility] Branch History of Social 2022-10-09 2022-10-[address] function 00:00:00 00:00:00 Hospital Alcohol intake 2022-04-27 2022-04-27 Current drinker Metho dist 00:00:00 00:00:00 of alcohol Hospital (finding) Cigarettes smoked 2022-04-26 2022-04-[address] current (pack per 00:00:00 00:00:00 Hospita l day) - Reported Cigarette 2022-04-26 2022-04-26 [facility]ism pack-years 00:00:00 00:00:00 Hospital Tobacco use and 2022-04-26 2022-04-26 Smokeless Zoroastrianism exposure 00:00:00 00:00:00 tobacco non-user Hospital Social History 2021-02-23 2021-02-23 [facility] [place] [facility] 20:24:04 20:24:04 Alcohol Comment 2020-03-23 2020-03-23 RARELY [facility]astrianism 00:00:00 00:00:00 Hospital Sex Ass[birth year] At [birth year] [facility] Ely s 00:00:00 00:00:00 Medical Center Smoking Status Start Date Stop Date Source Unknown if ever smoked Universit [facility] Former Smoker 2023-01-10 00:00:00 2023-01-10 00:00:00 Common S pirit - [facility] Medical Ce nter Never smoked tobacco [facility] [place] Medications Ordered Filled Start Stop Current Ordering Indication Dosage Frequency Signature Comments Components Source Medication Medication Date Date Medication? Clinician (SIG) Name Name honey 80 % 2022- Yes [id number] 5mL Apply 5 mL Univers 12-23 to area(s) ity of 00:00: 04:59 every 48 [place] 00 :00 ([facility] Medical ) [facility] for 10 days. honey 80 % 2022- Yes [id number] 5mL Apply 5 mL Univers 12-23 to area(s) ity of 00:00: 04:59 every 48 [place] 00 :00 (forty-e[facility] Medical ) [facility] for 10 days. vancomycin 2022- Yes 15mg/kg 1,250 mg Univers 1,250 mg in 12-22 (rounded ity of NaCl 0.9% 19:00: 06:59 from [place] (NS) 250 mL 00 :00 1,177.5 mg Me dical VIAL-MATE = 15 mg/kg Bran ch IV ?78.5 kg), piggyback IV Piggyback, ONCE, 1 dose, On Sun12/22/22 at 1400, Administer over 90 Minutes, 250 mL
Reas on for Anti-Infec tive: Documented Infection& lt;br>Docu mented Infection Site: Blood
D uration of Therapy: 7 days vancomycin 2022- Yes 15mg/kg 1,250 mg Univers 1,250 mg in 12-22 (rounded ity of NaCl 0.9% 19:00: 06:59 from [place] (NS) 250 mL 00 :00 1,177.5 mg Me dical VIAL-MATE = 15 mg/kg Bran ch IV ?78.5 kg), piggyback IV Piggyback, ONCE, 1 dose, On Sun12/22/22 at 1400, Administer over 90 Minutes, 250 mL
Reas on for Anti-Infec tive: Documented Infection& lt;br>Docu mented Infection Site: Blood
D uration of Therapy: 7 days insulin Yes 30U inject 30 Unive rs lispro 100 6-16 Units ity of unit/mL 17:37: under the [place] inph 07 skin in [facility] the [place] morning and 30 Units at noon and 30 Units in the evening. Sliding scale Insulin Yes 45U inject 45 Unive rs Glargine 6-16 Units ity of (LANTUS 17:37: under the [place] SOLOSTAR 07 skin in [facility] U-100 the Branch INSULIN) morning 100 unit/mL and 45 (3 mL) Units in injection the evening. buPROPion 0 Yes 150mg Take 1 Unive rs SR 150 mg 6-16 tablet by ity o f SR tablet 17:37: [place] 07 the Medical morning. Branch pantoprazol 0 Yes 40mg Take 1 Univ ers e 40 mg EC 6-16 tablet by ity of tablet 17:37: mouth in [place] the Medical morning. Branch Levothyroxi 0 Yes 150ug Take 150 U nivers ne 100 mcg 6-16 mcg by ity of capsule 17:37: mouth [place] daily. Medical Branch aspirin 81 2022-0 Yes 81mg Take 81 mg U nivers mg Cap 6-16 by mouth ity of 17:37: in the [place] morning. Medical Branch Cholecalcif 0 Yes Take by Uni vers daryl, 6-16 mouth. ity of Vitamin D3, 17:37: [place] 25 mcg 07 Medical (1,000 Branch unit) capsule folic 2022-0 Yes Take by Univers acid/multiv 6-16 mouth ity of it-min/lute 17:37: daily. a s in (CENTRUM 07 Medical SILVER Branch ORAL) vitamin 2022-0 Yes 100ug Take 1 Univers B-12 100 6-16 tablet by ity of mcg tablet 17:37: mouth [place] every Medical morning. Branch loratadine 0 Yes Univers 10 mg 6-16 ity of tablet 17:37: [place] 07 Medical Branch fenofibrate 2022-0 Yes 200mg Take 1 Uni vers micronized 6-16 capsule by ity of 200 mg 17:37: mouth. [place] capsule Medical Branch polyethylen 2022-0 Yes 17g Take 1 Univ ers e glycol 6-16 Packet by ity of 3350 17 17:37: mouth. [place] gram powder Medical Branch insulin 2022-0 Yes 30U inject 30 Unive rs lispro 100 6-16 Units ity of unit/mL 17:37: under the [place] inph 07 skin in Medical the Branch morning and 30 Units at noon and 30 Units in the evening. Sliding scale Insulin 2022-0 Yes 45U inject 45 Unive rs Glargine 6-16 Units ity of (LANTUS 17:37: under the [place] SOLOSTAR 07 skin in Medical U-100 the Branch INSULIN) morning 100 unit/mL and 45 (3 mL) Units in injection the evening. buPROPion 0 Yes 150mg Take 1 Unive rs SR 150 mg 6-16 tablet by ity o f SR tablet 17:37: [place] 07 the Medical morning. Branch pantoprazol 0 Yes 40mg Take 1 Univ ers e 40 mg EC 6-16 tablet by ity of tablet 17:37: mouth in [place] 07 the Medical morning. Branch Levothyroxi 0 Yes 150ug Take 150 U nivers ne 100 mcg 6-16 mcg by ity of capsule 17:37: mouth [place] daily. Medical Branch aspirin 81 2022-0 Yes 81mg Take 81 mg U nivers mg Cap 6-16 by mouth ity of 17:37: in the [place] 07 morning. Medical Branch Cholecalcif 0 Yes Take by Uni vers daryl, 6-16 mouth. ity of Vitamin D3, 17:37: [place] 25 mcg 07 Medical (1,000 Branch unit) capsule folic 0 Yes Take by Univers acid/multiv 6-16 mouth ity of it-min/lute 17:37: daily. [place] in (CENTRUM 07 Medical SILVER Branch ORAL) vitamin 2022-0 Yes 100ug Take 1 Univers B-12 100 6-16 tablet by ity of mcg tablet 17:37: mouth [place] 07 every Medical morning. Branch loratadine 0 Yes Univers 10 mg 6-16 ity of tablet 17:37: [place] 07 Medical Branch fenofibrate 2022-0 Yes 200mg Take 1 Uni vers micronized 6-16 capsule by ity of 200 mg 17:37: mouth. [place] capsule Medical Branch polyethylen 0 Yes 17g Take 1 Univ ers e glycol 6-16 Packet by ity of 3350 17 17:37: mouth. [place] gram powder Medical Branch amLODIPine 2022-0 2022- No 10mg Take 1 Univ ers 10 mg 6-16 06-16 tablet by ity of tablet 16:45: 00:00 mouth in [place] 05 :00 the Medical morning. Branch furosemide 2022-0 3- No 160mg Take 2 Uni vers 80 mg 6-16 06-16 tablets by ity of tablet 16:45: 00:00 mouth in [place] 05 :00 the Medical morning. Branch lisinopriL 2022- No 5mg Take 1 Univ ers 5 mg tablet 12-22 tablet by it y of 16:45: 00:00 mouth in [place] 05 :00 the Medical morning. Branch metoprolol 2022- No 50mg Take 1 Univ ers succinate 12-22 tablet by ity of XL 50 mg 24 16:45: 00:00 mouth in [place] hr tablet 05 :00 the Medical morning Branch and 1 tablet in the evening. multivitami 2022- No Take by Un hellen n (MULTIPLE 12-22 mouth. ity o f VITAMIN 16:45: 00:00 [place] ESSENTIAL 05 :00 Medical ORAL) Branch clopidogreL 2022- No 75mg Take 1 Uni vers (PLAVIX) 75 12-22 tablet by it y of mg tablet 16:45: 00:00 mouth in [place] 05 :00 the Medical morning. Branch ticagrelor Yes 90mg 90 mg, Unive rs (BRILINTA) -16 Oral, BID, ity of tablet 90 13:00: [place] dose [place] mg 00 on Fri Medical 12/22/22 at [place] 0800, Until Discontinu ed, Routine ticagrelor 0 Yes 90mg 90 mg, Unive rs (BRILINTA) -16 Oral, BID, ity of tablet 90 13:00: First [place] mg 00 on Fri Medical 12/22/22 at [place] 0800, Until Discontinu ed, Routine ticagrelor 2022- Yes [id number] 90mg Take 1 Univers 90 mg 12-22 tablet by ity of tablet 00:00: 04:59 mouth in [place] 00 :00 the Medical morning Branch and 1 tablet in the evening. Do all this for 30 days. amLODIPine 2022- Yes [id number] 5mg Take 1 Univers 5 mg tablet 12-22 tablet by it y of 00:00: 04:59 mouth in [place] 00 :00 the Medical morning Branch for 30 days. ticagrelor 2022-2022- Yes [id number] 90mg Take 1 Univers 90 mg 12-22 tablet by ity of tablet 00:00: 04:59 mouth in [place] 00 :00 the Medical morning Branch and 1 tablet in the evening. Do all this for 30 days. amLODIPine 2022-0 2022- Yes [id number] 5mg Take 1 Univers 5 mg tablet 12-22-17 tablet by it y of 00:00: 04:59 mouth in [place] 00 :00 the Medical morning Branch for 30 days. FENTanyl PF 2022-0 Yes 25ug 25 mcg, Uni vers (SUBLIMAZE 6-15 Slow IV ity of (PF)) 21:51: Push, [place] injection 46 Q5MIN PRN, Medi jose 25 mcg 4 doses, Branch Starting on Krystle 12/21/22 at 1651, Until Discontinu ed, Routine, Pain (scale 7-10), PACU FENTanyl PF 2022-0 Yes 25ug 25 mcg, Uni vers (SUBLIMAZE 6-15 Slow IV ity of (PF)) 21:51: Push, [place] injection 46 Q5MIN PRN, Medi jose 25 mcg 4 doses, Branch Starting on Krystle 12/21/22 at 1651, Until Discontinu ed, Routine, Pain (scale 4-6), PACU FENTanyl PF 2022-0 Yes 25ug 25 mcg, Uni vers (SUBLIMAZE 6-15 Slow IV ity of (PF)) 21:51: Push, [place] injection 46 Q5MIN PRN, Medi jose 25 mcg 4 doses, Branch Starting on Krystle 12/21/22 at 1651, Until Discontinu ed, Routine, Pain (scale 7-10), PACU FENTanyl PF 2022-0 Yes 25ug 25 mcg, Uni vers (SUBLIMAZE 6-15 Slow IV ity of (PF)) 21:51: Push, [place] injection 46 Q5MIN PRN, Medi jose 25 mcg 4 doses, Branch Starting on Kyrstle 12/21/22 at 1651, Until Discontinu ed, Routine, Pain (scale 4-6), PACU ondansetron 2022-0 2022- No 4mg 4 mg, Slow Univers (ZOFRAN 12-21 06-16 IV Push, ity of (PF)) 21:51: 18:25 PRN, 1 [place] injection 4 46 :00 dose, Medical mg Starting Branch on Krystle 12/21/22 at 1651, Until Discontinu ed, Routine, Nausea and Vomiting (N/V), PACU heparin 2022- No PRN, Univers lock flush 12-21 Starting ity of (HEPARIN 21:22: 21:52 on [facility] [place] [facility] LOCKFLUSH(P 00 :17 12/21/22 at Fl dical ORCINE)(PF) 1622, Branch ) 100 Until Krystle unit/mL 12/21/22 at injection 1652, Routine, Intra-op bupivacaine 2022- No PRN, Unive rs (preserv 12-21 Starting ity of free) 21:18: 21:52 on [facility] [place] [facility] (SENSORCAIN 00 :17 12/21/22 at Fl dicwv E MPF) 0.25 1618, Branch % (2.5 Until Krystle mg/mL) 12/21/22 at injection 1652, Routine, Intra-op NaCl 0.9% 2022- No PRN, Univers (NS) 12-21 Starting ity of injection 21:17: 21:52 on [facility] [place] [facility] 00 :17 12/21/22 at [facility] 1617, Branch Until Krystle 12/21/22 at 1652, Routine, Intra-op heparin Yes 2000U PRN - SEE Univ ers 1,000 6-15 INSTRUCTIO ity of unit/mL 16:04: NS, [place] injection 44 Starting Medica l 2,000 Units on [facility]le Branch 12/21/22 at 1104, Until Discontinu ed, Routine
For Priming of Ports:&nbs p; &n bsp; After initial saline flush, prime each port with heparin according to the priming volume listed on each catheter port for catheter lock.
heparin Yes 2000U PRN - SEE Univ ers 1,000 6-15 INSTRUCTIO ity of unit/mL 16:04: NS, [place] injection 44 Starting Medica l 2,000 Units on [place] Branch 12/21/22 at 1104, Until Discontinu ed, Routine
For Priming of Ports:&nbs p; &n bsp; After initial saline flush, prime each port with heparin according to the priming volume listed on each catheter port for catheter lock.
honey 2022- Yes Topical, Univers (MEDIHONEY 12-21 Q48H, 7 ity o f (HONEY)) 80 15:00: 14:59 doses, [place] as % topical 00 :00 First dose Medi jose gel (after Branch last modificati on) on Krystle 12/21/22 at 1000, Last dose on Sun01/02/23 at 1000, Routine honey 2022- Yes Topical, Univers (MEDIHONEY 12-21 Q48H, 7 ity o f (HONEY)) 80 15:00: 14:59 doses, [place] as % topical 00 :00 First dose Medi jose gel (after Branch last modificati on) on Sun12/21/22 at 1000, Last dose on Sun01/02/23 at 1000, Routine dicyclomine Yes 20mg 20 mg, Univ ers (BENTYL) 6-15 Oral, ity of tablet 20 05:09: QIDPRN, [place] mg 02 Starting Medical on [facility] 12/21/22 at 0009, Until Discontinu ed, Routine, Abdominal pain dicyclomine Yes 20mg 20 mg, Univ ers (BENTYL) 6-15 Oral, ity of tablet 20 05:09: QIDPRN, [place] mg 02 Starting Medical on [facility] 12/21/22 at 0009, Until Discontinu ed, Routine, Abdominal pain heparin Yes 2000U PRN - SEE Univ ers 1,000 6-13 INSTRUCTIO ity of unit/mL 21:51: NS, [place] injection 05 Starting Medica l 2,000 Units on [facility] 12/19/22 at 1651, Until Discontinu ed, Routine
For Priming of Ports:&nbs p; &n bsp; After initial saline flush, prime each port with heparin according to the priming volume listed on each catheter port for catheter lock.
heparin Yes 2000U PRN - SEE Univ ers 1,000 6-13 INSTRUCTIO ity of unit/mL 21:51: NS, [place] injection 05 Starting Medica l 2,000 Units on [facility] 12/19/22 at 1651, Until Discontinu ed, Routine
For Priming of Ports:&nbs p; &n bsp; After initial saline flush, prime each port with heparin according to the priming volume listed on each catheter port for catheter lock.
diphenhydrA 2022-0 Yes 25mg 25 mg, [facility] MINE 12-19 Oral, ity of (BENADRYL) 09:29: Q4HPRN, [place] tablet 25 48 Starting Medica l mg on [facility] Branch 12/19/22 at 0429, Until Discontinu ed, Routine, Itching diphenhydrA 2022-0 Yes 25mg 25 mg, [facility] MINE 12-19 Oral, ity of (BENADRYL) 09:29: Q4HPRN, [place] tablet 25 48 Starting Medica l mg on [facility] Branch 12/19/22 at 0429, Until Discontinu ed, Routine, Itching heparin 2022- No [id number] 2800U ONCE, 1 Univers 1,000 12-18 dose, On ity of unit/mL 17:15: 18:47 Mon [place] injection 00 :00 12/18/22 at [facility] jose 2,800 Units 1215, Branch Routine
Catheter packing
simethicone 2022-0 Yes 80mg 80 mg, [facility] ers (GAS RELIEF 6-11 Oral, ity of (SIMETHICON 18:00: PC[place]HS, [place] E)) 00 First dose Medical chewable on Sun Branch tablet 80 12/17/22 at mg 1300, Until Discontinu ed, Routine simethicone 2022-0 Yes 80mg 80 mg, Univ ers (GAS RELIEF -11 Oral, ity of (SIMETHICON 18:00: PC[place]HS, [place] E)) 00 First dose Medical chewable on Sun Branch tablet 80 12/17/22 at mg 1300, Until Discontinu ed, Routine ceFAZolin 2022-0 2022- Yes 1000mg 1,000 mg, Univers (ANCEF) 12-16 Intravenou ity o f 1,000 mg in 20:00: 19:59 s, Q24H [place] NaCl 0.9% 00 :00 ABX, 13 Medical (NS) 100 mL doses, Branch MINI-BAG First dose on 12/16/22 at 1500, Last dose on Krystle 12/28/22 at 1500, Administer over 30 Minutes, 100 mL
Reas on for Anti-Infec tive: Documented Infection< br>Documen matthew Infection Site: Blood
D uration of Therapy: 14 days ceFAZolin 2022- Yes 1000mg 1,000 mg, Univers (ANCEF) 12-16 Intravenou ity o f 1,000 mg in 20:00: 19:59 s, Q24H [place] NaCl 0.9% 00 :00 ABX, 13 Medical (NS) 100 mL doses, Branch MINI-BAG First dose on 12/16/22 at 1500, Last dose on Krystle 12/28/22 at 1500, Administer over 30 Minutes, 100 mL
Reas on for Anti-Infec tive: Documented Infection< br>Documen matthew Infection Site: Blood
D uration of Therapy: 14 days epoetin Yes 8000U 8,000 Univers vanesa-epbx 6-10 Units, ity of (RETACRIT) 11:45: [place]cut[place]o [place] injection 00 us, Medical 8,000 Units QMON/WED/F Br anch [place] AT 1999, First dose on 12/16/22 at 0745, Until Discontinu ed, Routine
[place] tribunal member approving Restricted medication : AQUILINO MORALES epoetin Yes 8000U 8,000 Univers vanesa-epbx 6-10 Units, ity of (RETACRIT) 11:45: Subcut[place]o [place] injection 00 us, Medical 8,000 Units QMON/WED/F Br anch RI AT 1999, First dose on 12/16/22 at 0745, Until Discontinu ed, Routine
[place] tribunal member approving Restricted medication : AQUILINO MORALES levothyroxi Yes 150ug 150 mcg, U nivers ne 6-10 Oral, ity of (SYNTHROID) 11:00: QAM-0600, [place] tablet 150 00 First dose Med ical mcg on Sat Branch 12/16/22 at 0600, Until Discontinu ed, Routine levothyroxi Yes 150ug 150 mcg, U nivers ne 6-10 Oral, ity of (SYNTHROID) 11:00: QAM-0600, [place] tablet 150 00 First dose Med ical mcg on Sun12/16/22 at 0600, Until Discontinu ed, Routine Vancomycin No 750mg 750 mg, IV Univers 750 mg in 12-16 Piggyback, ity of NaCl 0.9% 03:00: 03:48 ONCE, 1 [place] (NS) 250 mL 00 :00 dose, On Medi jose VIAL-MATE Sun12/15/22 Bran ch at 2200, Administer over 60 Minutes, 250 mL
R miguel ángel for Anti-Infec tive: Documented Infection< br>Documen matthew Infection Site: Blood
D uration of Therapy: 14 days morpHINE (0 Yes 4mg 4 mg, Slow Univers mg/mL) 6-10 IV Push, ity of injection 4 02:04: Q4HPRN, [place] mg 42 Starting Medical on Sun12/15/22 at 2103, Until Discontinu ed, Routine, Pain (scale 7-10) morpHINE (0 Yes 4mg 4 mg, Slow Univers mg/mL) 6-10 IV Push, ity of injection 4 02:04: Q4HPRN, [place] mg 42 Starting Medical on Sun12/15/22 at 2103, Until Discontinu ed, Routine, Pain (scale 7-10) proCHLORper 0 Yes 10mg 10 mg, Univ ers azine 6-10 Slow IV ity of (COMPAZINE) 02:03: Push, [place] injection 03 Q6HPRN, Medical 10 mg Starting Branch on Sun12/15/22 at 2102, Until Discontinu ed, Routine, Nausea and Vomiting (N/V), For nausea and vomiting not responsive to Zofran proCHLORper 0 Yes 10mg 10 mg, Univ ers azine 6-10 Slow IV ity of (COMPAZINE) 02:03: Push, [place] injection 03 Q6HPRN, Medical 10 mg Starting Branch on Sun12/15/22 at 2102, Until Discontinu ed, Routine, Nausea and Vomiting (N/V), For nausea and vomiting not responsive to Zofran metroNIDAZO 2022022- No 500mg 500 mg, IV Univers LE in NaCl 12-16 Infusion, ity of (iso-os) 02:00: 17:45 Q12H ABX, [place] as (FLAGYL 00 :05 11 doses, Medical I.V.) RTU First dose Bran ch IV infusion (after 500 mg last modificati on) on Sun12/15/22 at 2100, Last dose on Sun12/20/22 at 2100, Administer over 60 Minutes, 100 mL
Reas on for Anti-Infec tive: Empiric Therapy for Suspected Infection< br>Empiric Therapy Site: Abdominal< br>Duratio n of therapy: 5 days ondansetron Yes 4mg 4 mg, Slow Univers (ZOFRAN 6-10 IV Push, ity of (PF)) 00:52: Q6HPRN, [place] injection 4 31 Nausea and Me dical mg Vomiting Branch (N/V), Starting on Sun12/15/22 at 195
Do ses of ondansetro n 16 mg and above need to be administer ed via IV piggyback. For Dose >=24mg ECG monitoring is advisable.
ondansetron 0 Yes 4mg 4 mg, Slow Univers (ZOFRAN 6-10 IV Push, ity of (PF)) 00:52: Q6HPRN, [place] injection 4 31 Nausea and Me dical mg Vomiting Branch (N/V), Starting on Sun12/15/22 at 1952
Do ses of ondansetro n 16 mg and above need to be administer ed via IV piggyback. For Dose >=24mg ECG monitoring is advisable.
heparin 2022- No [id number] 4300U DIALYSIS Univers 1,000 12-15 ONCE - PT ity of unit/mL 22:45: 00:22 ROOM, 1 [place] injection 00 :00 dose, On Medica l 4,300 Units Sun12/15/22 Br anch at 1745, Routine
HD Catheter ports pack: A = 2.3 ml; V = 2.3 ml
mupirocin 2022- No Nasal, Unive rs (BACTROBAN 6-09 06-14 Q12H, 10 ity of NASAL OINT) 16:30: 02:46 doses, [place] as 2 % nasal 00 :00 First dose Medi jose ointment on Sun12/15/22 at 1130, Last dose on Sun12/19/22 at 2000, Routine polyethylen 2023-0 Yes 17g 17 g, Unive rs e glycol 12-15 Oral, ity of 3350 powder 14:00: DAILY, [place] 17 g 00 First dose Medical on Sun12/15/22 at 0900, Until Discontinu ed, Routine loratadine 3-0 Yes 10mg 10 mg, Unive rs (CLARITIN) 12-15 Oral, ity of tablet 10 14:00: DAILY, [place] mg 00 First dose Medical on Sun12/15/22 at 0900, Until Discontinu ed, Routine cholecalcif 2022-0 Yes 1000U 1,000 Univ ers daryl 12-15 Units, ity of (vitamin 14:00: Oral, [place] D3) tablet 00 DAILY, Medical 1,000 Units First dose Br anch on Sun12/15/22 at 0900, Until Discontinu ed buPROPion 2022-0 Yes 150mg 150 mg, Univ ers XL 12-15 Oral, ity of (WELLBUTRIN 14:00: DAILY, [place] XL) tablet 00 First dose Med ical 150 mg on Sun12/15/22 at 0900, Until Discontinu ed, Routine aspirin EC 3-0 Yes 81mg 81 mg, Unive rs tablet 81 12-15 Oral, ity of mg 14:00: DAILY, [place] 00 First dose Medical on Sun12/15/22 at 0900, Until Discontinu ed polyethylen 2023-0 Yes 17g 17 g, Unive rs e glycol 12-15 Oral, ity of 3350 powder 14:00: DAILY, [place] 17 g 00 First dose Medical on Sun12/15/22 at 0900, Until Discontinu ed, Routine loratadine 3-0 Yes 10mg 10 mg, Unive rs (CLARITIN) 12-15 Oral, ity of tablet 10 14:00: DAILY, [place] mg 00 First dose Medical on Sun12/15/22 at 0900, Until Discontinu ed, Routine cholecalcif 3-0 Yes 1000U 1,000 Univ ers daryl 12-15 Units, ity of (vitamin 14:00: Oral, [place] D3) tablet 00 DAILY, Medical 1,000 Units First dose Br anch on Sun12/15/22 at 0900, Until Discontinu ed buPROPion Yes 150mg 150 mg, Univ ers XL 12-15 Oral, ity of (WELLBUTRIN 14:00: DAILY, [place] XL) tablet 00 First dose Med ical 150 mg on Sun Branch 12/15/22 at 0900, Until Discontinu ed, Routine aspirin EC Yes 81mg 81 mg, Unive rs tablet 81 12-15 Oral, ity of mg 14:00: DAILY, [place] 00 First dose Medical on Sun Branch 12/15/22 at 0900, Until Discontinu ed docusate Yes 100mg 100 mg, Unive rs (COLACE) 12-15 Oral, BID, ity o f capsule 100 13:00: First dose [place] mg 00 on Sun Medical 12/15/22 at Branch 0800, Until Discontinu ed, Routine docusate Yes 100mg 100 mg, Unive rs (COLACE) 12-15 Oral, BID, ity o f capsule 100 13:00: First dose [place] mg 00 on Sun Medical 12/15/22 at Branch 0800, Until Discontinu ed, Routine vancomycin 2022- No 15mg/kg 1,250 mg Univers 1,250 mg in 12-15- (rounded ity of NaCl 0.9% 12:15: 13:56 from 1,155 [place] (NS) 250 mL 00 :00 mg = 15 Medic al VIAL-MATE mg/kg ?77 Branc h IV kg), IV piggyback Piggyback, ONCE, 1 dose, On Sun12/15/22 at 0715, Administer over 90 Minutes, 250 mL
Reas on for Anti-Infec tive: Documented Infection< br>Docu mented Infection Site: Blood
D uration of Therapy: Other (see Comments) heparin Yes 5000U 5,000 Univers (porcine) 12-15 Units, ity of injection 11:00: [place]cut[place]o [place] 5,000 Units 00 us, Q8H, [facility] First dose Branch on Sun12/15/22 at 0600, Until Discontinu ed, Routine heparin 2022-0 Yes 5000U 5,000 Univers (porcine) 6-09 Units, ity of injection 11:00: Subcutaneo [place] 5,000 Units 00 us, Q8H, Medi jose First dose Branch on Sun12/15/22 at 0600, Until Discontinu ed, Routine insulin 2022-0 Yes 30U inject 30 Unive rs lispro 100 6-09 Units ity of unit/mL 07:43: under the [place] in 43 skin in Medical the Branch morning and 30 Units at noon and 30 Units in the evening. Sliding scale Insulin 2022-0 Yes 45U inject 45 Unive rs Glargine 6-09 Units ity of (LANTUS 07:43: under the [place] SOLOSTNJ 43 skin in [facility] U-100 the [place] INSULIN) morning 100 unit/mL and 45 (3 mL) Units in injection the evening. amLODIPine 2022-0 Yes 10mg Take 1 Unive rs 10 mg 6-09 tablet by ity of tablet 07:43: mouth in [place] [address] the Medical morning. Branch buPROPion 2022-0 Yes 150mg Take 1 Unive rs SR 150 mg 6-09 tablet by ity o f SR tablet 07:43: mouth in [place] [address] the Medical morning. Branch furosemide 2022-0 Yes 160mg Take 2 Univ ers 80 mg 6-09 tablets by ity of tablet 07:43: mouth in [place] [address] the Medical morning. Branch lisinopriL 2022-0 Yes 5mg Take 1 Unive rs 5 mg tablet 6-09 tablet by ity of 07:43: mouth in [place] [address] the Medical morning. Branch metoprolol 2022-0 Yes 50mg Take 1 Unive rs succinate 6-09 tablet by ity o f XL 50 mg 24 07:43: mouth in [place] hr tablet 43 the Medical morning Branch and 1 tablet in the evening. pantoprazol 2022-0 Yes 40mg Take 1 Univ ers e 40 mg EC 6-09 tablet by ity of tablet 07:43: mouth in [place] [address] the Medical morning. Branch Levothyroxi 2022-0 Yes 150ug Take 150 U nivers ne 100 mcg 6-09 mcg by ity of capsule 07:43: mouth [place] [address] daily. Medical Branch aspirin 81 2023-0 Yes 81mg Take 81 mg U nivers mg Cap 12-15 by mouth ity of 07:43: in the [place] 43 morning. Medical Branch Cholecalcif Yes Take by Uni vers daryl, 6- mouth. ity of Vitamin D3, 07:43: [place] 25 mcg 43 Medical (1,000 Branch unit) capsule folic Yes Take by Univers acid/multiv 12-15 mouth ity of it-min/lute 07:43: [facility] Medical SILVER Branch ORAL) vitamin 0 Yes 100ug Take 1 Univers B-12 100 6- tablet by ity of mcg tablet 07:43: mouth [place] [address] every Medical morning. Branch loratadine Yes Univers 10 mg 12-15 ity of tablet 07:43: [place] [address] Medical Branch multivitami 0 Yes Take by Uni vers n (MULTIPLE 6- mouth. ity of VITAMIN 07:43: [place] [address] Medical ORAL) Branch fenofibrate Yes 200mg Take 1 Uni vers micronized 12-15 capsule by ity of 200 mg 07:43: mouth. [place] capsule Medical Branch polyethylen 0 Yes 17g Take 1 Univ ers e glycol - Packet by ity of 3350 17 07:43: mouth. [place] gram powder 43 Medical Branch clopidogreL Yes 75mg Take 1 Univ ers (PLAVIX) 75 12-15 tablet by ity of mg tablet 07:43: mouth in [place] [facility] 43 the Medical morning. Branch NORepinephr 2022-0 202- No .05ug/k 0.05-0.5 Univers ine 4 mg in 12-15 06-10 g/min mcg/kg/min ity of 0.9% NaCl 07:34: 07:33 ?77 kg [place] 250 mL 23 :23 (14.4375-1 Medical infusion 44.375 [place] RTU mL/hr, rounded to 14.44-144. 38 mL/hr), IV Infusion, TITRATE, MAP Goal > or = 65 mmHg, Starting on Sun12/15/22 at 0234, For 24 hours
I nitiate titration at 0.05 mcg/kg/min . &nb sp;Increas e by 0.05 mcg/kg/min every 30 seconds to 5 minutes as needed to reach and maintain goal blood pressure.& nbsp;&nbsp ;Maximum dose = 0.5 mcg/kg/min . &nb sp;If goal not maintained at maximum allowed dose, contact prescriber . &nb sp;Adminis ter only one peripheral intravenou s vasopresso r at a time.
Sliding [facility] Scale 12-15 us, Q6H, ity of Insulin - 05:00: First dose [place] Lispro 00 on Sun Medical (HumaLOG) 12/15/22 at [facility] h 0000, Until Discontinu ed, Routine Sliding Yes [facility] ers Scale 12-15 , Q6H, ity of Insulin - 05:00: First dose [place] Lispro 00 on Sun Medical (HumaLOG) 12/15/22 at [facility] h 0000, Until Discontinu ed, Routine NaCl 0.9% 2022- No 1000mL at 999 Uni vers (NS) bolus 12-15 mL/hr, ity of infusion 04:45: 05:55 1,000 mL, [place] as 1,000 mL 00 :48 IV Medical Infusion, Branch ONCE, 1 dose, On Sun12/14/22 at 2345, STAT pantoprazol 2022- No 40mg 40 mg, Uni vers e 12-15 Slow IV ity of (PROTONIX) 04:00: 03:04 Push, [place] injection 00 :00 Q24H, 3 Medical 40 mg doses, Branch First dose on Sun12/14/22 at 2300, Last dose on Sun12/16/22 at 2300 potassium 3-0 2022- No 10meq 10 mEq, IV Univers chloride in 12-15 Piggyback, i ty of water 10 04:00: 11:36 Q1H, 3 [place] mEq/100 mL 00 :00 doses, Medical RTU 10 mEq First dose Bra nch on Sun12/14/22 at 2300, Last dose on Sun12/15/22 at 0100, Administer over 60 Minutes, 100 mL glucagon Yes 1mg 1 mg, Univers (GLUCAGEN 12-15 Intramuscu ity of DIAGNOSTIC 03:59: lar, PRN, [place] KIT) 49 Starting Medical injection 1 on Krystle Branch mg 12/14/22 at 2259, Until Discontinu ed, VIOLETTA, Blood Glucose < or = 70 mg/dL and patient is NPO, unable to swallow or has mental changes. dextrose 50 2022-0 Yes 25mL 25 mL, Univ ers % in water 6-09 Slow IV ity of (D50W) 03:59: Push, PRN, [place] injection 49 Starting Medica l 25 mL on Krystle Branch 12/14/22 at 2259, Until Discontinu ed, VIOLETTA, Blood Glucose < or = 70 mg/dL and patient is NPO, unable to swallow or has mental status changes. glucagon Yes 1mg 1 mg, Univers (GLUCAGEN 12-15 Intramuscu ity of DIAGNOSTIC 03:59: lar, PRN, [place] KIT) 49 Starting Medical injection 1 on Krystle Branch mg 12/14/22 at 2259, Until Discontinu ed, VIOLETTA, Blood Glucose < or = 70 mg/dL and patient is NPO, unable to swallow or has mental changes. dextrose 50 2022-0 Yes 25mL 25 mL, Univ ers % in water 6-09 Slow IV ity of (D50W) 03:59: Push, PRN, [place] injection 49 Starting Medica l 25 mL on Krystle Branch 12/14/22 at 2259, Until Discontinu ed, VIOLETTA, Blood Glucose < or = 70 mg/dL and patient is NPO, unable to swallow or has mental status changes. levoFLOXaci 2022-0 202- No 250mg 250 mg, IV Univers n in D5W 12-15 06-10 Piggyback, ity of (LEVAQUIN) 03:00: 17:45 Q24H ABX, [place] 250 mg/50 00 :05 First dose Medi jose mL on Krystle Branch Piggyback 12/14/22 at 250 mg 2200, Until Discontinu ed, Administer over 60 Minutes, 50 mL
Reas on for Anti-Infec tive: Empiric Therapy for Suspected Infection< br>Empi rafal Therapy Site: Abdominal< br>Duratio n of therapy: 5 days metroNIDAZO 2022- No 500mg 500 mg, IV Univers LE in NaCl 12-15 Infusion, ity of (iso-os) 02:30: 18:46 Q8H ABX, [place] (FLAGYL 00 :29 14 doses, Medical I.V.) RTU First dose Bran ch IV infusion on Krystle 500 mg 12/14/22 at 2130, Last dose on Sun12/19/22 at 0530, Administer over 60 Minutes, 100 mL
Reas on for Anti-Infec tive: Empiric Therapy for Suspected Infection< br>Empiric Therapy Site: Abdominal< br>Duratio n of therapy: 5 days NaCl 0.9% 2022- No 500mL at 500 Univ ers (NS) bolus 12-15 mL/hr, 500 it y of infusion 02:15: 04:45 mL, IV [place] 500 mL 00 :32 Piggyback, Medical ONCE, 1 Branch dose, On Krystle 12/14/22 at 2115, STAT glycerin/mi No 225mL 225 mL, U nivers neral oil 12-15 Rectal, ity of (AGLO 02:15: 01:56 ONCE, 1 [place] ENEMA) 00 :00 dose, On Medical (COMPOUNDED Sun12/14/22 Br anch ) Enem 225 at 2115, mL Routine glycerin 0 Yes 1{suppo 1 Univer s (adult) 12-15 sitory} Suppositor ity of (FLEET 01:30: y, Rectal, [place] GLYCERIN 00 DAILY, Medical (ADULT)) First dose Branc h suppository on Sun12/14/22 at Suppository 2030, Until Discontinu ed, Routine glycerin 2022-0 Yes 1{suppo 1 Univer s (adult) 12-15 sitory} Suppositor ity of (FLEET 01:30: y, Rectal, [place] GLYCERIN 00 DAILY, Medical (ADULT)) First dose Branc h suppository on Krystle12/14/22 at Suppository 2030, Until Discontinu ed, Routine acetaminoph 2022- No 500mg 500 mg, U nivers en 12-15 Oral, ity of (TYLENOL) 01:00: 00:03 ONCE, 1 [place] tablet 500 00 :00 dose, On Medic al mg [facility] 12/14/22 Branch at 2000, Routine ketorolac 2022- No 15mg 15 mg, Unive rs (TORADOL) 12-15 Slow IV ity of injection 00:45: 00:32 Push, [place] 15 mg 00 :00 ONCE, 1 Medical dose, On Branch [facility] 12/14/22 at 1945, Routine ceFEPIme 2022- No 1g 1 g, IV Unive rs (MAXIPIME) 12-15 Piggyback, it y of 1 g in NaCl 00:15: 00:02 ONCE, 1 [place] 0.9% (NS) 00 :00 dose, On Medica l 50 mL [facility] 12/14/22 [place] MINI-BAG at 1915, Administer over 30 Minutes, 50 mL
Reas on for Anti-Infec tive: Documented Infection< br>Documen matthew Infection Site: Skin / Soft Tissue< br>Duratio n of Therapy: 7 days ondansetron 2022- No 4mg 4 mg, Slow Univers (ZOFRAN 12-1408 IV Push, ity of (PF)) 23:15: 23:32 ONCE, 1 [place] injection 4 00 :00 dose, On Medi jose mg [facility] 12/14/22 [place] at 1815, VIOLETTA mupirocin Yes Nasal, Univer s (BACTROBAN 5-02 Q12H, For ity of NASAL OINT) 18:45: 5 days, [place] 2 % nasal 33 First dose Medi jose ointment conditiona Branc h l, Routine insulin Yes 30U inject 30 Unive rs lispro 100 5-02 Units ity of unit/mL 17:42: under the [place] inph 52 skin in [facility] the [place] morning and 30 Units at noon and 30 Units in the evening. Sliding scale Insulin 0 Yes 45U inject 45 Unive rs Glargine 5-02 Units ity of (LANTUS 17:42: under the [place] SOLOSTAR 52 skin in [facility] U-100 [facility] INSULIN) morning 100 unit/mL and 45 (3 mL) Units in injection the evening. amLODIPine 0 Yes 10mg Take 1 Unive rs 10 mg 5-02 tablet by ity of tablet 17:42: mouth in [place] [address] the Medical morning. Branch buPROPion 0 Yes 150mg Take 1 Unive rs SR 150 mg 5-02 tablet by ity o f SR tablet 17:42: mouth in [place] [address] the Medical morning. Branch furosemide 2022-0 Yes 160mg Take 2 Univ ers 80 mg 5-02 tablets by ity of tablet 17:42: mouth in [place] [address] the Medical morning. Branch lisinopriL 0 Yes 5mg Take 1 Unive rs 5 mg tablet 5-02 tablet by ity of 17:42: mouth in [place] [address] the Medical morning. Branch metoprolol 2022-0 Yes 50mg Take 1 Unive rs succinate 5-02 tablet by ity o f XL 50 mg 24 17:42: mouth in [place] hr tablet 52 the Medical morning Branch and 1 tablet in the evening. pantoprazol 0 Yes 40mg Take 1 Univ ers e 40 mg EC 5-02 tablet by ity of tablet 17:42: mouth in [place] [address] the Medical morning. Branch Levothyroxi 0 Yes 150ug Take 150 U nivers ne 100 mcg 5-02 mcg by ity of capsule 17:42: mouth [place] [address] daily. Medical Branch aspirin 81 0 Yes 81mg Take 81 mg U nivers mg Cap 5-02 by mouth ity of 17:42: in the [place] [address] morning. Medical Branch Cholecalcif 0 Yes Take by Uni vers daryl, 5-02 mouth. ity of Vitamin D3, 17:42: [place] 25 [facility] 52 Medical (1,000 Branch unit) capsule folic 0 Yes Take by Univers acid/multiv 5-02 mouth ity of it-min/lute 17:42: daily. [place] in (CENTRUM 52 Medical SILVER Branch ORAL) vitamin 2022-0 Yes 100ug Take 1 Univers B-12 100 5-02 tablet by ity of mcg tablet 17:42: mouth [place] [address] every Medical morning. Branch loratadine 0 Yes Univers 10 mg 5-02 ity of tablet 17:42: [place] 52 Medical Branch multivitami 2022-0 Yes Take by Uni vers n (MULTIPLE 5-02 mouth. ity of VITAMIN 17:42: [place] [address] Medical ORAL) Branch fenofibrate 2022-0 Yes 200mg Take 1 Uni vers micronized 5-02 capsule by ity of 200 mg 17:42: mouth. [place] capsule [address] [place] [address] Branch polyethylen 2022-0 Yes 17g Take 1 Univ ers e glycol 5-02 Packet by ity of 3350 17 17:42: mouth. [place] gram powder [address] [place] [address] Branch clopidogreL 2022-0 Yes 75mg Take 1 Univ ers (PLAVIX) 75 5-02 tablet by ity of mg tablet 17:42: mouth in [place] [address] the Medical morning. Branch insulin 2022-0 Yes 30U inject 30 Unive rs lispro 100 5-02 Units ity of unit/mL 17:42: under the [place] in 52 skin in Medical the Branch morning and 30 Units at noon and 30 Units in the evening. Sliding scale Insulin 2022-0 Yes 45U inject 45 Unive rs Glargine 5-02 Units ity of (LANTUS 17:42: under the [place] SOLOSTAR skin in [facility] U-100 the [place] INSULIN) morning 100 unit/mL and 45 (3 mL) Units in injection the evening. amLODIPine 2022-0 Yes 10mg Take 1 Unive rs 10 mg 5-02 tablet by ity of tablet 17:42: mouth in [place] [address] the Medical morning. Branch buPROPion 2022-0 Yes 150mg Take 1 Unive rs SR 150 mg 5-02 tablet by ity o f SR tablet 17:42: mouth in [place] [address] the Medical morning. Branch furosemide 2022-0 Yes 160mg Take 2 Univ ers 80 mg 5-02 tablets by ity of tablet 17:42: mouth in [place] [address] the Medical morning. Branch lisinopriL 2022-0 Yes 5mg Take 1 Unive rs 5 mg tablet 5-02 tablet by ity of 17:42: mouth in [place] [address] the Medical morning. Branch metoprolol 2022-0 Yes 50mg Take 1 Unive rs succinate 5-02 tablet by ity o f XL 50 mg 24 17:42: mouth in [place] hr jennifer [place] [address] the Medical morning Branch and 1 tablet in the evening. pantoprazol 2022-0 Yes 40mg Take 1 Univ ers e 40 mg EC 5-02 tablet by ity of tablet 17:42: mouth in [place] [address] the Medical morning. Branch Levothyroxi 0 Yes 150ug Take 150 U nivers ne 100 mcg 5-02 mcg by ity of capsule 17:42: mouth [place] [address] daily. Medical Branch aspirin 81 0 Yes 81mg Take 81 mg U nivers mg Cap 5-02 by mouth ity of 17:42: in the [place] [address] morning. Medical Branch Cholecalcif 0 Yes Take by Uni vers daryl, 5-02 mouth. ity of Vitamin D3, 17:42: [place] 25 [facility] (1,000 Branch unit) capsule folic 0 Yes Take by Univers acid/multiv 5-02 mouth ity of it-min/lute 17:42: daily. [facility] s in (CENTRUM 52 Medical SILVER Branch ORAL) vitamin 2022-0 Yes 100ug Take 1 Univers B-12 100 5-02 tablet by ity of mcg tablet 17:42: mouth [place] [address] every Medical morning. Branch loratadine 0 Yes Univers 10 mg 5-02 ity of tablet 17:42: [place] [address] Medical Branch multivitami 0 Yes Take by Uni vers n (MULTIPLE 5-02 mouth. ity of VITAMIN 17:42: [place] [address] Medical ORAL) Branch fenofibrate 0 Yes 200mg Take 1 Uni vers micronized 5-02 capsule by ity of 200 mg 17:42: mouth. [place] capsule Medical Branch polyethylen 0 Yes 17g Take 1 Univ ers e glycol 5-02 Packet by ity of 3350 17 17:42: mouth. [place] gram powder Medical Branch clopidogreL 0 Yes 75mg Take 1 Univ ers (PLAVIX) 75 5-02 tablet by ity of mg tablet 17:42: mouth in [place] [address] the Medical morning. Branch mupirocin 2 0 Yes [id number] .5g Use 0.5 g Univers % nasal 5-02 in each ity of ointment 00:00: nostril [place] [address] every 12 Medical (twelve) Branch hours. mupirocin 2 0 Yes [id number] .5g Use 0.5 g Univers % nasal 5-02 in each ity of ointment 00:00: nostril [place] [address] every 12 Medical (twelve) Branch hours. mupirocin 2 0 Yes [id number] .5g Use 0.5 g Univers % nasal 11-07 in each ity of ointment 00:00: nostril [place] 00 every 12 Medical (twelve) Branch hours. mupirocin 2 2022- No [id number] .5g Use 0.5 g Univers % nasal 11-07 in each ity of ointment 00:00: 00:00 nostril [place] 00 :00 every 12 Medical (twelve) Branch hours. atorvastati 2022- Yes [id number] 40mg Take 1 Univers n 40 mg 11-07 tablet by ity of tablet 00:00: 04:59 mouth at [place] 00 :00 bedtime Medical for 30 Branch days. atorvastati 2022- Yes [id number] 40mg Take 1 Univers n 40 mg 11-07 tablet by ity of tablet 00:00: 04:59 mouth at [place] 00 :00 bedtime Medical for 30 Branch days. mupirocin Yes [id number] Uni vers (BACTROBAN 11-06 ity of OINT) 2 % 19:00: [place] skin 00 Medical ointment Branch heparin 2022- No [id number] 4600U DIALYSIS Univers 1,000 11-06 ONCE - PT ity of unit/mL 15:15: 16:26 ROOM, 1 [place] injection 00 :00 dose, On Medica l 4,600 Units 11/06/22 Br anch at 1015, Routine
A port : 2.3 ml V port : 2.3 ml To verónica: 4.6 ml
sulfur 2022- No [id number] 5mL 5 mL, Unive rs hexafluorid 11-05 04-30 Intravenou i ty of e microsphr 15:15: 15:15 s, ONCE, 1 [place] (LUMASON) 00 :00 dose, On Medica l injection 5 Sun Branch mL 11/05/22 at 1015, Routine
[place] tribunal member approving Restricted medication : KIMBERLY TORRESHShaji polyethylen Yes 17g 17 g, Unive rs e glycol -30 Oral, ity of 3350 powder 14:00: DAILY, [place] 17 g 00 First dose Medical on [place] Branch 11/05/22 at 0900, Until Discontinu ed, Routine pantoprazol Yes 40mg 40 mg, Univ ers e 4-30 Oral, ity of (PROTONIX) 14:00: DAILY, [place] EC tablet 00 First dose Medi jose 40 mg on Sun Branch 11/05/22 at 0900, Until Discontinu ed, Routine lisinopriL Yes 5mg 5 mg, Univer s (PRINIVIL,Z 4-30 Oral, ity of ESTRIL) 14:00: DAILY, [place] tablet 5 mg 00 First dose Me dical on Sun Branch 11/05/22 at 0900, Until Discontinu ed, Routine furosemide Yes 160mg 160 mg, Uni vers (LASIX) 4-30 Oral, ity of tablet 160 14:00: DAILY, [place] mg 00 First dose Medical on [place] Branch 11/05/22 at 0900, Until Discontinu ed, Routine clopidogreL Yes 75mg 75 mg, Univ ers (PLAVIX) 75 4-30 Oral, ity of mg tablet 14:00: DAILY, [place] 75 mg 00 First dose Medical on Sun Branch 11/05/22 at 0900, Until Discontinu ed, Routine buPROPion Yes 150mg 150 mg, Univ ers SR 4-30 Oral, ity of (WELLBUTRIN 14:00: DAILY, [place] SR) tablet 00 First dose Med ical 150 mg on Sun Branch 11/05/22 at 0900, Until Discontinu ed, Routine aspirin EC Yes 81mg 81 mg, Unive rs tablet 81 4-30 Oral, ity of mg 14:00: DAILY, [place] 00 First dose Medical on Sun Branch 11/05/22 at 0900, Until Discontinu ed Sliding 2022-0 Yes Subcutaneo Univ ers Scale 4-30 us, TID ity of Insulin - 13:00: MEALS+HS, [place] as Lispro 00 First dose Medical (HumaLOG) on Sun Branch 11/05/22 at 0800, Until Discontinu ed, Routine sevelamer 2022-0 Yes 800mg 800 mg, Univ ers (RENVELA) 4-30 Oral, TID ity o f tablet 800 13:00: MEALS, [place] mg 00 First dose Medical on Sun Branch 11/05/22 at 0800, Until Discontinu ed, Routine psyllium 2022-0 Yes 1{packe 1 Packet, U nivers husk 4-30 t} Oral, BID, ity of (METAMUCIL 13:00: First dose [place] (SUGAR 00 on Sun Medical FREE)) 3.4 11/05/22 at Bra nch gram oral 0800, powder Until packet 1 Discontinu Packet ed, Routine cholecalcif 2022-0 Yes 2000U 2,000 Univ ers daryl 4-30 Units, ity of (vitamin 13:00: Oral, BID [place] D3) tablet 00 MEALS, Medical 2,000 Units First dose Br anch on [place] 11/05/22 at 0800, Until Discontinu ed glucagon 2022-0 Yes 1mg 1 mg, Univers (GLUCAGEN 4-30 Intramuscu ity of DIAGNOSTIC 12:13: lar, PRN, [place] KIT) 03 Starting Medical injection 1 on [facility] mg 11/05/22 at 0713, Until Discontinu ed, VIOLETTA, Blood Glucose < or = 70 mg/dL and patient is NPO, unable to swallow or has mental changes. dextrose 50 2022-0 Yes 25mL 25 mL, Univ ers % in water 4-30 Slow IV ity of (D50W) 12:13: Push, PRN, [place] injection 03 Starting Medica l 25 mL on [facility] 11/05/22 at 0713, Until Discontinu ed, VIOLETTA, Blood Glucose < or = 70 mg/dL and patient is NPO, unable to swallow or has mental status changes. levothyroxi 2022-0 Yes 150ug 150 mcg, U nivers ne 4-30 Oral, ity of (SYNTHROID) 11:00: QAM-0600, [place] tablet 150 00 First dose Med ical mcg on [facility] 11/05/22 at 0600, Until Discontinu ed, Routine heparin 2022-0 Yes 5000U 5,000 Univers (porcine) 4-30 Units, ity of injection 03:00: Subcutaneo [place] 5,000 Units 00 us, Q8H, Medi jose First dose Branch on 11/04/22 at 2200, Until Discontinu ed, Routine ondansetron 2022-0 Yes 4mg 4 mg, Slow Univers (ZOFRAN 4-30 IV Push, ity of (PF)) 02:39: Q6HPRN, [place] injection 4 30 Nausea and Me dical mg Vomiting Branch (N/V), Starting on [facility] 11/04/22 at 2138
Do ses of ondansetro n 16 mg and above need to be administer ed via IV piggyback. For Dose >=24mg ECG monitoring is advisable.
KCL 2022-0 2022- No 40meq 40 mEq, Univers (KLOR-CON 11-05 04-30 Oral, ity of M20) tablet 02:15: 03:06 ONCE, 1 [place] 40 mEq 00 :00 dose, On Medical [facility] Branch 11/04/22 at 2114, Routine HYDROcodone 2022-0 Yes 1{tbl} 1 tablet, Univers -acetaminop 4-30 Oral, ity of hen (NORCO 02:03: Q6HPRN, [place] 5) 5-325 mg 40 Starting Medi jose tablet 1 on [facility] Branch tablet 11/04/22 at 2102, Until Discontinu ed, Routine, Pain (scale 7-10) traMADoL 2022-0 Yes 50mg 50 mg, Univers (ULTRAM) 4-30 Oral, ity of tablet 50 02:03: Q6HPRN, [place] mg 11 Starting Medical on [facility] Branch 11/04/22 at 210, Until Discontinu ed, Routine, Pain (scale 4-6) atorvastati 2022-0 Yes 40mg 40 mg, Univ ers n (LIPITOR) 4-30 Oral, QHS, it y of tablet 40 02:00: First dose [place] mg 00 on [facility] Medical 11/04/22 at Branch 2100, Until Discontinu ed, Routine metoprolol 2022-0 Yes 50mg 50 mg, Unive rs succinate 4-30 Oral, BID, ity of XL (TOPROL 01:45: First dose [place] XL) tablet 00 on [facility] Medical 50 mg 11/04/22 at Branch 2045, Until Discontinu ed, Routine potassium 2022-0 2022- No 10meq 10 mEq, IV Univers chloride in 11-04 0430 Piggyback, i ty of water 10 22:15: 00:08 ONCE, 1 [place] mEq/100 mL 00 :00 dose, On Medic al RTU 10 mEq Sat Branch 11/04/22 at 1715, Administer over 60 Minutes, 100 mL acetaminoph Yes 650mg 650 mg, Un hellen en 11-04 Oral, ity of (TYLENOL) 21:56: Q6HPRN, [place] tablet 650 18 Starting Medic al mg on [facility] Branch 11/04/22 at 1656, Until Discontinu ed, Routine, Pain (scale 1-3) KCL 2022- No 20meq 20 mEq, Univers (KLOR-CON 11-04 Oral, ity of M20) tablet 21:30: 22:08 ONCE, 1 [place] 20 mEq 00 :00 dose, On Medical [facility] Branch 11/04/22 at 1630, VIOLETTA FENTanyl PF 2022- No 25ug 25 mcg, Un hellen (SUBLIMAZE 11-04 Slow IV ity o f (PF)) 20:45: 20:53 Push, [place] injection 00 :00 ONCE, 1 Medical 25 mcg dose, On Branch [facility] 11/04/22 at 1545, STAT sevelamer Yes 3200mg Take 4 Univ ers 800 mg 1-03 tablets by ity of tablet 00:00: mouth. [place] [facility] sevelamer 0 Yes 3200mg Take 4 Univ ers 800 mg 1-03 tablets by ity of tablet 00:00: mouth. [place] [facility] sevelamer 0 Yes 3200mg Take 4 Univ ers 800 mg 1-03 tablets by ity of tablet 00:00: mouth. [place] [facility] sevelamer 0 Yes 3200mg Take 4 Univ ers 800 mg 1-03 tablets by ity of tablet 00:00: mouth. [address] sevelamer 0 Yes 3200mg Take 4 Univ ers 800 mg 1-03 tablets by ity of tablet 00:00: mouth. [address] buPROPion 2021-07 Yes 150mg Q.5D Take [...] :00 needed for l heartburn. traMADoL 2021-07 [id number] 50mg Q8H Take 1 Metho di (Ultram) 50 0-19 10-25 tablet (50 s t mg tablet 00:00: 04:59 mg total) Ho spita 00 :00 by mouth l every 8 (eight) hours as needed for moderate pain for up to 5 days .acute pain. traMADoL 2021-07 [id number] 50mg Q8H Take 1 Metho di (Ultram) 50 0-19 10-25 tablet (50 s t mg tablet 00:00: 04:59 mg total) Ho spita 00 :00 by mouth l every 8 (eight) hours as needed for moderate pain for up to 5 days .acute pain. traMADoL 2021-07 [id number] 50mg Q8H Take 1 Metho di (Ultram) [...] to 5 days .acute pain. traMADoL 2021-07 [id number] 50mg Q8H Take 1 Metho di (Ultram) 50 0-19 10-25 tablet (50 s t mg tablet 00:00: 04:59 mg total) Ho spita 00 :00 by mouth l every 8 (eight) hours as needed for moderate pain for up to 5 days .acute pain. traMADoL 2021-07 No [id number] 50mg Q8H Take 1 Metho di (Ultram) 50 0-19 10-25 tablet (50 s t mg tablet 00:00: 04:59 mg total) Ho spita 00 :00 by mouth l every 8 (eight) hours as needed for moderate pain for up to 5 days .acute pain. traMADoL 2021-07 [id number] 50mg Q8H Take 1 Metho di (Ultram) 50 0-19 10-25 tablet (50 s t mg tablet 00:00: 04:59 mg total) Ho spita 00 :00 by mouth l every 8 (eight) hours as needed for moderate pain for up to 5 days .acute pain. traMADoL 2021-07 [id number] 50mg Q8H Take 1 Metho di (Ultram) 50 0-19 10-25 tablet (50 s t mg tablet 00:00: 04:59 mg total) Ho spita 00 :00 by mouth l every 8 (eight) hours as needed for moderate pain for up to 5 days .acute pain. traMADoL 2021-07 [id number] 50mg Q8H Take 1 Metho di (Ultram) [...] TWICE l DAILY [place] [id number] 50mg Q8H Take 1 Metho di (Ultram) 50 8- 09-04 tablet (50 s t mg tablet 00:00: 04:59 mg total) Ho spita 00 :00 by mouth l every 8 (eight) hours as needed for moderate pain for up to 5 [place] [address] 50mg Q8H Take 1 Metho di (Ultram) 50 8- 09-04 tablet (50 s t mg tablet 00:00: 04:59 mg total) Ho spita 00 :00 by mouth l every 8 (eight) hours as needed for moderate pain for up to 5 days .acute pain. traMADoL 2021- 42552 50mg Q8H Take 1 Metho di (Ultram) 50 8- 09-04 tablet (50 s t mg tablet 00:00: 04:59 mg total) Ho spita 00 :00 by mouth l every 8 (eight) hours as needed for moderate pain for up to 5 days .acute pain. traMADoL 2021- No [id number] 50mg Q8H Take 1 Metho di (Ultram) 50 8- 09-04 tablet (50 s t mg tablet 00:00: 04:59 mg total) Ho spita 00 :00 by mouth l every 8 (eight) hours as needed for moderate pain for up to 5 days .acute pain. traMADoL 2021- No [id number] 50mg Q8H Take 1 Metho di (Ultram) 50 8- 09-04 tablet (50 s t mg tablet 00:00: 04:59 mg total) Ho spita 00 :00 by mouth l every 8 (eight) hours as needed for moderate pain for up to 5 days .acute pain. traMADoL 11836 50mg Q8H Take 1 Metho di (Ultram) 50 03-06 09-04 tablet (50 s t mg tablet 00:00: 04:59 mg total) Ho spita 00 :00 by mouth l every 8 (eight) hours as needed for moderate pain for up to 5 days .acute pain. traMADoL 02446 50mg Q8H Take 1 Metho di (Ultram) 50 03-06-04 tablet (50 s t mg tablet 00:00: 04:59 mg total) Ho spita 00 :00 by mouth l every 8 (eight) hours as needed for moderate pain for up to 5 days .acute pain. traMADoL 13416 50mg Q8H Take 1 Metho di (Ultram) 50 03-06- tablet (50 s t mg tablet 00:00: 04:59 mg total) Ho spita 00 :00 by mouth l every 8 (eight) hours as needed for moderate pain for up to 5 days .acute pain. traMADoL 62313 50mg Q8H Take 1 Metho di (Ultram) 50 03-06-04 tablet (50 s t mg tablet 00:00: 04:59 mg total) Ho spita 00 :00 by mouth l every 8 (eight) hours as needed for moderate pain for up to 5 days .acute pain. traMADoL [id number] 50mg Q8H Take 1 Metho di (Ultram) 50 03-06-04 tablet (50 s t mg tablet 00:00: 04:59 mg total) Ho spita 00 :00 by mouth l every 8 (eight) hours as needed for moderate pain for up to 5 days .acute pain. traMADoL [id number] 50mg Q8H Take 1 Metho di (Ultram) 50 8 09-04 tablet (50 s t mg tablet [...] amoxicillin 2-0 2022- No Metho di (AMOXIL) 8 10-17 st 500 MG 00:00: 00:00 Hospita capsule 00 :00 l amoxicillin 2-0 2022- No Metho di (AMOXIL) 8 10-17 st 500 MG 00:00: 00:00 Hospita capsule 00 :00 l amoxicillin 2-0 2022- No Metho di (AMOXIL) 8 10-17 st 500 MG 00:00: 00:00 Hospita capsule 00 :00 l amoxicillin 2-0 2022- No Metho di (AMOXIL) 02-27 10-17 [...] daily. For l 2 more days busPIRone 0 Yes [facility] (BUSPAR) 5 5-20 st MG [...] gram 00:00: Hospita packet 00 l docusate 2-0 Yes 100mg Take 1 Univer s (COLACE) 3-19 capsule by ity o f 100 mg 00:00: mouth. [place] capsule Medical Branch psyllium 2-0 Yes 1{packe Take 1 Univ ers husk 3-19 t} Packet by ity of (METAMUCIL 00:00: mouth. [place] FIBER 00 Medical SINGLES) Branch 3.4 gram oral powder packet docusate 2-0 Yes 100mg Take 1 Univer s (COLACE) 3-19 capsule by ity o f 100 mg 00:00: mouth. [place] capsule 00 Medical Branch psyllium 2021-0 Yes 1{packe Take 1 Univ ers husk 3-19 t} Packet by ity of (METAMUCIL 00:00: mouth. [place] FIBER Medical SINGLES) Branch 3.4 gram oral powder packet docusate 2021-0 Yes 100mg Take 1 Univer s (COLACE) 3-19 capsule by ity o f 100 mg 00:00: mouth. [place] capsule 00 Medical Branch psyllium 2021-0 Yes 1{packe Take 1 Univ ers husk 3-19 t} Packet by ity of (METAMUCIL 00:00: mouth. [place] FIBER Medical SINGLES) Branch 3.4 gram oral powder packet docusate 2021-0 Yes 100mg Take 1 Univer s (COLACE) 3-19 capsule by ity o f 100 mg 00:00: mouth. [place] capsule 00 Medical Branch psyllium 0 Yes 1{packe Take 1 Univ ers husk 3-19 t} Packet by ity of (METAMUCIL 00:00: mouth. [place] FIBER Medical SINGLES) Branch 3.4 gram oral powder packet docusate 2021-0 Yes 100mg Take 1 Univer s (COLACE) 3-19 capsule by ity o f 100 mg 00:00: mouth. [place] capsule 00 Medical Branch psyllium 2021-0 Yes 1{packe Take 1 Univ ers husk 3-19 t} Packet by ity of (METAMUCIL 00:00: mouth. [place] FIBER Medical SINGLES) Branch 3.4 gram oral powder packet psyllium 2021-0 Yes 3.4g Take 3.4 g [...] Daily, 0 l mg-40 mg 20:29: Refill(s) [facility] joss oral 00 delayed release tablet Centrum Yes PO, Daily, J[place] frida Silver 8-18 0 l Ultra 20:29: Refill(s) [place] Claritin Yes 10 mg = 1 Jairo frida 8-18 tab, PO, l 20:29: Daily, PRN [place] 00 Itching / rash / allergy symptoms, # 20 tab, 0 Refill(s) Stool Yes PO, Memoria Softener 8-18 Bedtime, 0 l with 20:29: Refill(s) [place] Laxative aspirin-ome No 1 tab, PO, Memoria prazole 325 8-18 Daily, 0 l mg-40 mg 20:29: Refill(s) [place] joss oral 00 delayed release tablet Centrum Yes PO, Daily, J[place] frida Silver 8-18 0 l Ultra 20:29: Refill(s) [place] Claritin Yes 10 mg = 1 Jairo frida 8-18 tab, PO, l 20:29: Daily, PRN [place] 00 Itching / rash / allergy symptoms, # 20 tab, 0 Refill(s) Stool 0 Yes PO, Memoria Softener 8-18 Bedtime, 0 l with 20:29: Refill(s) [place] Laxative aspirin-ome No 1 tab, PO, Memoria prazole 325 8-18 Daily, 0 l mg-40 mg 20:29: Refill(s) [facility] joss oral 00 delayed release tablet Centrum Yes PO, Daily, J[place] frida Silver 8-18 0 l Ultra 20:29: Refill(s) [place] Claritin Yes 10 mg = 1 Jairo frida 8-18 tab, PO, l 20:29: Daily, PRN [place] 00 Itching / rash / allergy symptoms, # 20 tab, 0 Refill(s) Stool Yes PO, Memoria Softener 8-18 Bedtime, 0 l with 20:29: Refill(s) [place] Laxative aspirin-ome No 1 tab, PO, Memoria prazole 325 8-18 Daily, 0 l mg-40 mg 20:29: Refill(s) [place] joss oral 00 delayed release tablet Centrum Yes PO, Daily, [place] frida Silver 8-18 0 l Ultra 20:29: Refill(s) [place] Claritin Yes 10 mg = 1 Jairo frida 8-18 tab, PO, l 20:29: Daily, PRN [place] 00 Itching / rash / allergy symptoms, # 20 tab, 0 Refill(s) Stool 0 Yes PO, Memoria Softener 8-18 Bedtime, 0 l with 20:29: Refill(s) [place] Laxative aspirin-ome No 1 tab, PO, Memoria prazole 325 8-18 Daily, 0 l mg-40 mg 20:29: Refill(s) [place] joss oral 00 delayed release tablet Centrum Yes PO, Daily, [place] frida Silver 8-18 0 l Ultra 20:29: Refill(s) [place] Claritin Yes 10 mg = 1 Jairo frida 8-18 tab, PO, l 20:29: Daily, PRN [place] 00 Itching / rash / allergy symptoms, # 20 tab, 0 Refill(s) Stool 0 Yes PO, Memoria Softener 8-18 Bedtime, 0 l with 20:29: Refill(s) [place] Laxative aspirin-ome No 1 tab, PO, Memoria prazole 325 8-18 Daily, 0 l mg-40 mg 20:29: Refill(s) [place] joss oral 00 delayed release tablet Centrum Yes PO, Daily, J[place] frida Silver 8-18 0 l Ultra 20:29: Refill(s) [place] Claritin Yes 10 mg = 1 Jairo frida 8-18 tab, PO, l 20:29: Daily, PRN [place] 00 Itching / rash / allergy symptoms, # 20 tab, 0 Refill(s) Stool Yes PO, Memoria Softener 8-18 Bedtime, 0 l with 20:29: Refill(s) [place] Laxative aspirin-ome No 1 tab, PO, Memoria prazole 325 8-18 Daily, 0 l mg-40 mg 20:29: Refill(s) [place] joss oral 00 delayed release tablet Centrum Yes PO, Daily, [place] frida Silver 8-18 0 l Ultra 20:29: Refill(s) [place] Claritin Yes 10 mg = 1 Jairo frida 8-18 tab, PO, l 20:29: Daily, PRN [place] 00 Itching / rash / allergy symptoms, # 20 tab, 0 Refill(s) Stool 0 Yes PO, Memoria Softener 8-18 Bedtime, 0 l with 20:29: Refill(s) [place] Laxative aspirin-ome No 1 tab, PO, Memoria prazole 325 8-18 Daily, 0 l mg-40 mg 20:29: Refill(s) [place] joss oral 00 delayed release tablet Centrum Yes PO, Daily, Jairo frida Silver 8-18 0 l Ultra 20:29: Refill(s) [place] Claritin Yes 10 mg = 1 Jairo [...] Silver 8-18 0 l Ultra 20:29: Refill(s) [place] Claritin Yes 10 mg = 1 Jairo [...] Silver 8-18 0 l Ultra 20:29: Refill(s) [place] Claritin Yes 10 mg = 1 Jairo frida 8-18 tab, PO, l 20:29: Daily, PRN [place] 00 Itching / rash / allergy symptoms, # 20 tab, 0 Refill(s) Stool 0 Yes PO, Memoria Softener 8-18 Bedtime, 0 l with 20:29: Refill(s) [place] Laxative aspirin-ome No 1 tab, PO, Memoria prazole 325 8-18 Daily, 0 l mg-40 mg 20:29: Refill(s) [place] joss oral 00 delayed release tablet Centrum Yes PO, Daily, Jairo frida Silver 8-18 0 l Ultra 20:29: Refill(s) [place] Claritin Yes 10 mg = 1 Jairo frida 8-18 tab, PO, l 20:29: Daily, PRN [place] 00 Itching / rash / allergy symptoms, # 20 tab, 0 Refill(s) Stool 0 Yes PO, Memoria Softener 8-18 Bedtime, 0 l with 20:29: Refill(s) [place] Laxative aspirin-ome No 1 tab, PO, Memoria prazole 325 8-18 Daily, 0 l mg-40 mg 20:29: Refill(s) [place] joss oral 00 delayed release tablet Centrum Yes PO, Daily, Jairo frida Silver 8-18 0 l Ultra 20:29: Refill(s) [place] Claritin Yes 10 mg = 1 Jairo frida 8-18 tab, PO, l 20:29: Daily, PRN [place] 00 Itching / rash / allergy symptoms, # 20 tab, 0 Refill(s) Stool Yes PO, Memoria Softener 8-18 Bedtime, 0 l with 20:29: Refill(s) [place] Laxative aspirin-ome No 1 tab, PO, Memoria prazole 325 8-18 Daily, 0 l mg-40 mg 20:29: Refill(s) [place] joss oral 00 delayed release tablet Centrum Yes PO, Daily, Jairo frida Silver 8-18 0 l Ultra 20:29: Refill(s) [place] Claritin Yes 10 mg = 1 Jairo [...] Silver 8-18 0 l Ultra 20:29: Refill(s) [place] Claritin Yes 10 mg = 1 Jairo frida 8-18 tab, PO, l 20:29: Daily, PRN [place] 00 Itching / rash / allergy symptoms, # 20 tab, 0 Refill(s) Stool Yes PO, Memoria Softener 8-18 Bedtime, 0 l with 20:29: Refill(s) [place] Laxative aspirin-ome No 1 tab, PO, Memoria [...] 8-18 Bedtime, 0 l with 20:29: Refill(s) [place] Laxative aspirin-ome No 1 tab, PO, Memoria prazole 325 8-18 Daily, 0 l mg-40 mg 20:29: Refill(s) [place] joss oral 00 delayed release tablet Centrum Yes PO, Daily, Jairo frida Silver 8-18 0 l Ultra 20:29: Refill(s) [place] Claritin Yes 10 mg = 1 Jairo frida 8-18 tab, PO, l 20:29: Daily, PRN [place] 00 Itching / rash / allergy symptoms, # 20 tab, 0 Refill(s) Stool Yes PO, Memoria Softener 8-18 Bedtime, 0 l with 20:29: Refill(s) [place] Laxative aspirin-ome No 1 tab, PO, Memoria prazole 325 8-18 Daily, 0 l mg-40 mg 20:29: Refill(s) [place] joss oral 00 delayed release tablet Centrum Yes PO, Daily, Jairo frida Silver 8-18 0 l Ultra 20:29: Refill(s) [place] Claritin Yes 10 mg = 1 Jairo frida 8-18 tab, PO, l 20:29: Daily, PRN [place] 00 Itching / rash / allergy symptoms, # 20 tab, 0 Refill(s) Stool Yes PO, Memoria Softener 8-18 Bedtime, 0 l with 20:29: Refill(s) [place] Laxative aspirin-ome No 1 tab, PO, Memoria prazole 325 8-18 Daily, 0 l mg-40 mg 20:29: Refill(s) [place] joss oral 00 delayed release tablet Centrum Yes PO, Daily, Jairo frida Silver 8-18 0 l Ultra 20:29: Refill(s) [place] Claritin Yes 10 mg = 1 Jairo frida 8-18 tab, PO, l 20:29: Daily, PRN [place] 00 Itching / rash / allergy symptoms, # 20 tab, 0 Refill(s) Stool Yes PO, Memoria Softener 8-18 Bedtime, 0 l with 20:29: Refill(s) [place] Laxative aspirin-ome No 1 tab, PO, Memoria prazole 325 8-18 Daily, 0 l mg-40 mg 20:29: Refill(s) [place] joss oral 00 delayed release tablet Centrum Yes PO, Daily, Jairo frida Silver 8-18 0 l Ultra 20:29: Refill(s) [place] Claritin Yes 10 mg = 1 Jairo frida 8-18 tab, PO, l 20:29: Daily, PRN [place] 00 Itching / rash / allergy symptoms, # 20 tab, 0 Refill(s) Stool Yes PO, Memoria Softener 8-18 Bedtime, 0 l with 20:29: Refill(s) Laxative cephalexin Yes 500 mg = 1 M emoria 500 mg oral 8-18 cap, PO, l capsule 20:28: QID, # 20 Macey nn 00 cap, 0 Refill(s) furosemide Yes 80 mg = 1 Me moria 80 mg oral 8-18 tab, PO, l tablet 20:28: Daily, # [place] 00 90 tab, 0 Refill(s) Insulin 2021-0 [...] tab, PO, l tablet 20:28: Daily, # [place] 00 90 tab, 0 Refill(s) Insulin 0 [...] tab, PO, l tablet 20:28: Daily, # [place] 00 90 tab, 0 Refill(s) Insulin 0 [...] tab, PO, l tablet 20:28: Daily, # [place] 00 90 tab, 0 Refill(s) Insulin 0 [...] tab, PO, l tablet 20:28: Daily, # [place] 00 90 tab, 0 Refill(s) Insulin 0 [...] tab, PO, l tablet 20:27: Daily, # [place] 90 tab, 1 Refill(s) Metoprolol 0 Yes [...] Oral Tablet 00 tab, 0 Refill(s) levothyroxi 2020-0 Yes 150 Memori a ne 150 mcg [...] tab, 0 tablet, Refill(s) extended release tramadol 2020-0 Yes 50 mg = 1 Jairo frida hydrochlori 8-18 tab, PO, l de 50 MG 20:27: BID, # 30 [facility] joss Oral Tablet 00 tab, 0 Refill(s) levothyroxi 2020-0 Yes 150 Memori a ne 150 mcg [...] tab, 0 tablet, Refill(s) extended release tramadol 2020-0 Yes 50 mg = 1 Jairo frida hydrochlori 8-18 tab, PO, l de 50 MG 20:27: BID, # 30 [facility] joss Oral Tablet 00 tab, 0 Refill(s) levothyroxi 2020-0 Yes 150 Memori a ne 150 mcg 8-18 microgram l (0.15 mg) 20:27: = 1 tab, [facility] joss oral tablet 00 PO, Daily, # 30 tab, 0 Refill(s) lisinopril 2020-0 Yes 5 mg = 1 Mem oria 5 mg oral 8-18 tab, PO, l tablet 20:27: Daily, # [place] 00 90 tab, 1 Refill(s) Metoprolol Yes [...] tab, PO, l tablet 20:27: Daily, # [place] 00 90 tab, 1 Refill(s) Metoprolol 0 [...] tab, PO, l tablet 20:27: Daily, # [place] 00 90 tab, 1 Refill(s) Metoprolol 2020-0 [...] tab, PO, l tablet 20:27: Daily, # [place] 00 90 tab, 1 Refill(s) Metoprolol Yes [...] tab, PO, l tablet 20:27: Daily, # [place] 00 90 tab, 1 Refill(s) Metoprolol Yes [...] tab, PO, l tablet 20:27: Daily, # [place] 00 90 tab, 1 Refill(s) Metoprolol Yes [...] 0 Prefilled Refill(s) Syringe [Lantus] 3 ML 2021-0 Yes 10 unit, [facility] Insulin 8-18 SUB-Q, [...] ity of no.2 irrig. 17:25: Krystle 10/14/20 [place] (BSS) 00 at 1225, Medical ophthalmic Until Branch solution Discontinu ed, Routine, Intra-op insulin Yes 30U inject 30 Unive rs lispro 4-08 Units ity of (HUMALOG 14:34: under the [place] [facility] DESTIN 02 skin 3 Medical KWIKPEN (three) Branch U-100) 100 times unit/mL daily. inph Insulin Yes 45U inject 45 Unive rs Glargine 4-08 Units ity of (LANTUS 14:34: [facility] [place] [facility] U-100 (two) Branch INSULIN) times 100 unit/mL daily. (3 mL) injection amLODIPine Yes 10mg Take 10 mg U nivers 10 mg 4-08 by mouth ity of tablet 14:34: daily. Medical Branch buPROPion Yes 150mg Take 150 [...] 4-08 by mouth ity of 14:34: daily. Medical Branch metoprolol Yes 50mg Take 50 mg U nivers succinate 4-08 by mouth 2 ity of XL 50 mg 24 14:34: (two) [place] hr tablet 02 times Medical daily. Branch pantoprazol Yes 40mg Take 40 mg Univers e 40 mg EC 4-08 by mouth ity o f tablet 14:34: daily. Medical Branch Levothyroxi Yes 150ug Take 150 U nivers ne 100 mcg 4-08 mcg by ity of capsule 14:34: mouth [place] 02 daily. Medical Branch aspirin 325 Yes 325mg Take 325 U nivers mg tablet 4-08 mg by ity of 14:34: mouth [place] 02 daily. Medical Branch Cholecalcif Yes Take by Uni vers daryl, 4-08 mouth. ity of Vitamin D3, 14:34: [place] (VITAMIN [facility] D3) 25 mcg [place] (1,000 unit) capsule folic Yes Take by [...] 1,000 mL 00 :00 IV Medical Infusion, [place] ONCE, 1 dose, Krystle 10/14/20 at 0745, Routine, DSU Pre-op insulin Yes 30U inject 30 Unive rs lispro 4-08 Units ity of (HUMALOG 09:34: under the [place] [facility] DESTIN 02 skin 3 Medical KWIKPEN (three) Branch U-100) 100 times unit/mL daily. inph Insulin Yes 45U inject 45 Unive rs Glargine 4-08 Units ity of (LANTUS 09:34: under the [place] SOLOSTAR 02 skin 2 Medical U-100 (two) Branch INSULIN) times 100 unit/mL daily. (3 mL) injection amLODIPine Yes 10mg Take 10 mg U nivers 10 mg 4-08 by mouth ity of tablet 09:34: daily. [address] Branch buPROPion Yes 150mg Take 150 Uni vers SR 150 mg 4-08 mg by ity of SR tablet 09:34: mouth daily. Medical Branch furosemide Yes 160mg Take 160 Un hellen 80 mg 4-08 mg by ity of tablet 09:34: mouth daily. Medical Branch lisinopriL Yes 5mg Take 5 mg Un hellen 5 mg tablet 4-08 by mouth ity of 09:34: daily. [place] [address] Medical Branch metoprolol Yes 50mg Take 50 mg U nivers succinate 4-08 by mouth 2 ity of XL 50 mg 24 09:34: (two) [place] hr tablet 02 times Medical daily. Branch pantoprazol Yes 40mg Take 40 mg Univers e 40 mg EC 4-08 by mouth ity o f tablet 09:34: daily. [place] [address] Medical Branch Levothyroxi Yes 150ug Take 150 U nivers ne 100 mcg 4-08 mcg by ity of capsule 09:34: mouth daily. Medical Branch aspirin 325 Yes 325mg Take 325 U nivers mg tablet 4-08 mg by ity of 09:34: mouth daily. Medical Branch Cholecalcif Yes Take by Uni vers daryl, 4-08 mouth. ity of Vitamin D3, 09:34: [place] (VITAMIN [address] [place] [address] D3) 25 mcg [place] (1,000 unit) capsule folic Yes Take by Univers acid/multiv 4-08 mouth ity of it-min/lute 09:34: [place] (CENTRUM 02 [facility] Branch ORAL) insulin 2020- Yes 30U [id number] Inject 30 Methodi lispro 1-[id number] (HumaLOG 00:00: 3D under the [facility] U-100 00 skin 3 l Insulin) (three) 100 unit/mL times a injection day before meals. insulin 2020-1 Yes 30U [id number] Inject 30 Methodi lispro 1-[id number] (HumaLOG 00:00: 3D under the [facility] U-100 00 skin 3 l Insulin) (three) 100 unit/mL times a injection day before meals. insulin 2020-1 Yes 30U [id number] Inject 30 Methodi lispro 1-[id number] (HumaLOG 00:00: 3D under the [facility] U-100 00 skin 3 l Insulin) (three) 100 unit/mL times a injection day before meals. insulin 2020-1 Yes 30U [id number] Inject 30 Methodi lispro 1-[id number] (HumaLOG 00:00: 3D under the [facility] U-100 00 skin 3 l Insulin) (three) 100 unit/mL times a injection day before meals. insulin 2020-1 Yes 30U [id number] Inject 30 Methodi lispro 1-[id number] (HumaLOG 00:00: 3D under the [facility] U-100 00 skin 3 l Insulin) (three) 100 unit/mL times a injection day before meals. insulin 2020-1 Yes 30U [id number] Inject 30 Methodi lispro 1-[id number] (HumaLOG 00:00: 3D under the [facility] U-100 00 skin 3 l Insulin) (three) 100 unit/mL times a injection day before meals. insulin 2020-1 Yes 30U [id number] Inject 30 Methodi lispro 1-[id number] (HumaLOG 00:00: 3D under the [facility] U-100 00 skin 3 l Insulin) (three) 100 unit/mL times a injection day before meals. insulin 2020-1 Yes 30U [id number] Inject 30 Methodi lispro 1-[id number] (HumaLOG 00:00: 3D under the [facility] U-100 00 skin 3 l Insulin) (three) 100 unit/mL times a injection day before meals. insulin 2020-1 Yes 30U [id number] Inject 30 Methodi lispro 1-[id number] (HumaLOG 00:00: 3D under the [facility] U-100 00 skin 3 l Insulin) (three) 100 unit/mL times a injection day before meals. insulin 2020-1 Yes 30U [id number] Inject 30 Methodi lispro 1-[id number] (HumaLOG 00:00: 3D under the [facility] U-100 00 skin 3 l Insulin) (three) 100 unit/mL times a injection day before meals. insulin 2020-1 Yes 30U [id number] Inject 30 Methodi lispro 1-[id number] (HumaLOG 00:00: 3D under the [facility] U-100 00 skin 3 l Insulin) (three) 100 unit/mL times a injection day before meals. insulin 2020-0 Yes 30U inject 30 Unive rs lispro 9-24 Units ity of (HUMALOG 16:37: under the [facility] s DESTIN 58 skin 3 Medical KWIKPEN (three) Branch U-100) 100 times unit/mL daily. inph Insulin 2020-0 Yes 45U inject 45 Unive rs Glargine 9-24 Units ity of (LANTUS 16:37: under the [place] SOLOSTAR 58 skin 2 Medical U-100 (two) Branch INSULIN) times 100 unit/mL daily. (3 mL) injection amLODIPine 2020-0 Yes 10mg Take 10 mg U nivers 10 mg 9-24 by mouth ity of tablet 16:37: daily. [place] [address] Medical Branch buPROPion 2020-0 Yes 150mg Take [...] by mouth ity of tablet 16:37: daily. [place] [address] Medical Branch metoprolol 2020-0 Yes 50mg Take 50 mg U nivers succinate 9-24 by mouth 2 ity of XL 50 mg 24 16:37: (two) [place] hr tablet 58 times Medical daily. Branch pantoprazol 2020-0 Yes 40mg Take 40 mg Univers e 40 mg EC 9-24 by mouth ity o f tablet 16:37: daily. [place] [address] Medical Branch Levothyroxi 2020-0 Yes 150ug Take [...] 9-24 mouth. ity of Vitamin D3, 16:37: [place] (VITAMIN [address] [place] [address] D3) 25 mcg Branch (1,000 unit) capsule folic 2020-0 Yes Take by Univers acid/multiv 9-24 mouth ity of it-min/lute 16:37: daily. [place] in (CENTRUM 58 Medical SILVER Branch ORAL) insulin 2020-0 Yes 30U inject 30 Unive rs lispro 9-24 Units ity of (HUMALOG 16:37: under the [facility] s DESTIN 58 skin 3 Medical KWIKPEN (three) Branch U-100) 100 times unit/mL daily. inph Insulin 2020-0 Yes 45U inject 45 Unive rs Glargine 9-24 Units ity of (LANTUS 16:37: under the [place] SOLOSTAR 58 skin 2 Medical U-100 (two) Branch INSULIN) times 100 unit/mL daily. (3 mL) injection amLODIPine 2020-0 Yes 10mg Take 10 mg U nivers 10 mg 9-24 by mouth ity of tablet 16:37: daily. [place] [address] Medical Branch buPROPion 2020-0 Yes 150mg Take [...] by mouth ity of tablet 16:37: daily. [place] [address] Medical Branch metoprolol 2020-0 Yes 50mg Take 50 mg U nivers succinate 9-24 by mouth 2 ity of XL 50 mg 24 16:37: (two) [place] hr tablet 58 times Medical daily. Branch pantoprazol 2020-0 Yes 40mg Take 40 mg Univers e 40 mg EC 9-24 by mouth ity o f tablet 16:37: daily. [place] [address] Medical Branch Levothyroxi 2020-0 Yes 150ug Take [...] 9-24 mouth. ity of Vitamin D3, 16:37: [place] (VITAMIN [address] [place] [address] D3) 25 mcg Branch (1,000 unit) capsule folic 2020-0 Yes Take by Univers acid/multiv 9-24 mouth ity of it-min/lute 16:37: daily. [facility] s in (CENTRUM 58 Medical SILVER Branch ORAL) insulin 2020-0 Yes 30U inject 30 Unive rs lispro 9-24 Units ity of (HUMALOG 16:37: under the [facility] s DESTIN 58 skin 3 Medical KWIKPEN (three) Branch U-100) 100 times unit/mL daily. inph Insulin 2020-0 Yes 45U inject 45 Unive rs Glargine 9-24 Units ity of (LANTUS 16:37: under the [place] SOLOSTAR 58 skin 2 Medical U-100 (two) Branch INSULIN) times 100 unit/mL daily. (3 mL) injection amLODIPine 2020-0 Yes 10mg Take 10 mg U nivers 10 mg 9-24 by mouth ity of tablet 16:37: daily. [place] [address] Medical Branch buPROPion 2020-0 Yes 150mg Take [...] by mouth ity of tablet 16:37: daily. [place] [address] Medical Branch metoprolol 2020-0 Yes 50mg Take 50 mg U nivers succinate 9-24 by mouth 2 ity of XL 50 mg 24 16:37: (two) [place] hr tablet 58 times Medical daily. Branch pantoprazol 2020-0 Yes 40mg Take 40 mg Univers e 40 mg EC 9-24 by mouth ity o f tablet 16:37: daily. [place] [address] Medical Branch Levothyroxi 2020-0 Yes 150ug Take [...] 9-24 mouth. ity of Vitamin D3, 16:37: [place] (VITAMIN Medical D3) 25 mcg Branch (1,000 unit) capsule folic 2020-0 Yes Take by Univers acid/multiv 9-24 mouth ity of it-min/lute 16:37: daily. [place] in (CENTRUM 58 Medical SILVER Branch ORAL) insulin 2020-0 Yes 30U inject 30 Unive rs lispro 9-24 Units ity of (HUMALOG 16:37: under the [facility] s DESTIN 58 skin 3 Medical KWIKPEN (three) Branch U-100) 100 times unit/mL daily. inph Insulin 2020-0 Yes 45U inject 45 Unive rs Glargine 9-24 Units ity of (LANTUS 16:37: under the [place] SOLOSTAR 58 skin 2 Medical U-100 (two) Branch INSULIN) times 100 unit/mL daily. (3 mL) injection amLODIPine 2020-0 Yes 10mg Take 10 mg U nivers 10 mg 9-24 by mouth ity of tablet 16:37: daily. [place] [address] Medical Branch buPROPion 2020-0 Yes 150mg Take [...] by mouth ity of tablet 16:37: daily. [place] [address] Medical Branch metoprolol 2020-0 Yes 50mg Take 50 mg U nivers succinate 9-24 by mouth 2 ity of XL 50 mg 24 16:37: (two) [place] hr tablet 58 times Medical daily. Branch pantoprazol 2020-0 Yes 40mg Take 40 mg Univers e 40 mg EC 9-24 by mouth ity o f tablet 16:37: daily. [place] [address] Medical Branch Levothyroxi 2020-0 Yes 150ug Take [...] 9-24 mouth. ity of Vitamin D3, 16:37: [place] (VITAMIN [address] [place] [address] D3) 25 mcg Branch (1,000 unit) capsule folic 2020-0 Yes Take by Univers acid/multiv 9-24 mouth ity of it-min/lute 16:37: [place]. [place] (CENTRUM 58 Medical SILVER Branch ORAL) insulin 2020-0 Yes 30U inject 30 Unive rs lispro 9-24 Units ity of (HUMALOG 13:50: under the [facility] s DESTIN 18 skin 3 Medical KWIKPEN (three) Branch U-100) 100 times unit/mL daily. inph Insulin 2020-0 Yes 45U inject 45 Unive rs Glargine 9-24 Units ity of (LANTUS 13:50: under the [place] SOLOSTAR 18 skin 2 Medical U-100 (two) Branch INSULIN) times 100 unit/mL daily. (3 mL) injection amLODIPine 2020-0 Yes 10mg Take 10 mg U nivers 10 mg 9-24 by mouth ity of tablet 13:50: daily. [place] [address] Medical Branch buPROPion 2020-0 Yes 150mg Take [...] by mouth ity of tablet 13:50: daily. [place] [address] Medical Branch metoprolol 2020-0 Yes 50mg Take 50 mg U nivers succinate 9-24 by mouth 2 ity of XL 50 mg 24 13:50: (two) [place] hr tablet 18 times Medical daily. Branch pantoprazol 2020-0 Yes 40mg Take 40 mg Univers e 40 mg EC 9-24 by mouth ity o f tablet 13:50: daily. [place] [address] Medical Branch Levothyroxi 2020-0 Yes 150ug Take [...] 9-24 mouth. ity of Vitamin D3, 13:50: [place] (VITAMIN [address] [place] [address] D3) 25 mcg Branch (1,000 unit) capsule folic 2020-0 Yes Take by Univers acid/multiv 9-24 mouth ity of it-min/lute 13:50: daily. [place] in (CENTRUM 18 Medical SILVER Branch ORAL) insulin 2020-0 Yes 30U inject 30 Unive rs lispro 9-24 Units ity of (HUMALOG 13:50: under the [facility] s DESTIN 18 skin 3 Medical KWIKPEN (three) Branch U-100) 100 times unit/mL daily. inph Insulin 2020-0 Yes 45U inject 45 Unive rs Glargine 9-24 Units ity of (LANTUS 13:50: under the [place] SOLOSTAR 18 skin 2 Medical U-100 (two) Branch INSULIN) times 100 unit/mL daily. (3 mL) injection amLODIPine 2020-0 Yes 10mg Take 10 mg U nivers 10 mg 9-24 by mouth ity of tablet 13:50: daily. [place] [address] Medical Branch buPROPion 2020-0 Yes 150mg Take [...] by mouth ity of tablet 13:50: daily. [place] [address] Medical Branch metoprolol 2020-0 Yes 50mg Take 50 mg U nivers succinate 9-24 by mouth 2 ity of XL 50 mg 24 13:50: (two) [place] hr tablet 18 times Medical daily. Branch pantoprazol 2020-0 Yes 40mg Take 40 mg Univers e 40 mg EC 9-24 by mouth ity o f tablet 13:50: daily. [place] [address] Medical Branch Levothyroxi 2020-0 Yes 150ug Take [...] 9-24 mouth. ity of Vitamin D3, 13:50: [place] (VITAMIN [address] [place] [address] D3) 25 mcg Branch (1,000 unit) capsule [...] 13:04: 13:33 INTRA [place] 00 :17 PROCEDURE, [facility] Starting Branch Krystle 04/01/20 at 0804, Until [place] 04/01/20 at 0833, Routine, Intra-op propofoL IV 2020-0 2020- No Intravenou Univers infusion 04-01 s, ONCE ity of 13:04: 13:33 INTRA [place] :17 PROCEDURE, [facility] Starting Branch Krystle 04/01/20 at 0804, Until [...] INTRA [place] 00 :17 PROCEDURE, Medical Starting [facility] 04/01/20 at 0802, Until [facility] 04/01/20 at 0833, Routine, Intra-op lactated 2020-0 2020- No IV Univers ringers IV 04-01 Infusion, ity of infusion 13:01: 13:33 [place]OUS [place] 00 :17 PRN, [facility] Starting [facility] 04/01/20 at 0801, Until [place] 04/01/20 at 0833, Routine, Intra-op lactated 2020-0 2020- No IV Univers ringers IV 04-01 Infusion, ity of infusion 13:01: 13:33 [place] 00 :17 PRN, [facility] Starting [facility] 04/01/20 at 0801, Until [facility] 04/01/20 at 0833, Routine, Intra-op tetracaine 2020-0 Yes PRN, Univers (PONTOCAINE 04-01 Starting ity of ) 0.5 % 12:53: [place]rystle [place] ophthalmic 04/01/20 at [facility] ica drops [address] [place] [address] Until Discontinu ed, Routine, Intra-op water for 2020-0 Yes PRN, Univers irrigation 04-01 Starting ity o f irrigation 12:53: Krystle [place] solution 04/01/[address] Until Discontinu ed, Routine, Intra-op NaCl 0.9% 2020-0 Yes PRN, Univers (NS) 04-01 Starting ity of injection 12:52: Krystle [place] 04/01/[address] Until Discontinu ed, Routine, Intra-op neomycin-po 2020-0 Yes PRN, Univer s lymyxin-dex 04-01 Starting ity of amethasone 12:52: Krystle [place] (MAXITROL) 04/01/[address] [facility] [address] [place] [address] mg/g-10,000 Until unit/g-0.1 Discontinu % ed, ophthalmic Routine, ointment Intra-op gentamicin 2020-0 Yes PRN, Univers injection 04-01 Starting ity of 12:52: Krystle [place] 04/01/[address] Until Discontinu ed, VIOLETTA, Intra-op eye block 2020-0 Yes PRN, Univers syringe 11 04-01 Starting ity o f mL 12:51: Krystle [place] 04/01/[address] Until Discontinu ed, Intra-op EPINEPHrine 2020-0 Yes PRN, Univer s (PF) 04-01 Starting ity of 1:1,000 (1 12:51: [place]rystle [place] mg/mL) 04/01/20 at [facility] (ADRENALIN 0751, [place] (PF)) Until injection Discontinu ed, Routine, Intra-op DUOVISC 2020-0 Yes PRN, Univers (DUOVISC 04-01 Starting ity of VISCO 12:51: Krystle [place] ELASTIC) 3 04/01/20 at [facility] ical %-4 %(0.5 0751, [place] mL) 1 % Until (0.55 mL) Discontinu intraocular ed, injection Routine, Intra-op dexamethaso 2020-0 Yes PRN, Univer s ne 04-01 Starting ity of (DECADRON 12:50: Krystle [place] PHOSPHATE) 04/01/20 at [facility] ical injection [address] [place] [address] Until Discontinu ed, Routine, Intra-op ceFAZolin 2020-0 Yes PRN, Univers (ANCEF) 04-01 Starting ity of injection 12:50: Krystle [place] 04/01/[address] Until Discontinu ed, VIOLETTA, Intra-op balanced 2020-0 Yes PRN, Univers salt soln 04-01 Starting ity of no.2 irrig. 12:49: Krystle [place] (BSS) 04/01/20 at [facility] ophthalmic 07, [place] solution Until Discontinu ed, Routine, Intra-op lactated 2020-0 2020- No 1000mL at 20 [facility] rs ringers IV 04-01 mL/hr, ity of infusion 12:00: 12:17 1,000 mL, [place] 1,000 mL 00 :00 IV Medical Infusion, [place] ONCE, 1 dose, Krystle 04/01/20 at 0700, [...] Q.5D Take 50 mg M ethodi succinate -[address] XL 00:00: (two) [...] st 5 mg tablet 00:00: daily. [facility] 00 l lisinopriL 2020-0 Yes 5mg QD [...] 00:00: mouth [facility] 00 every l morning. Levothyroxi Levothyroxi No QD Levothyrox ne Sodium [...] le} ferol 50 (1999) (1999) MCG (1999) Sevelamer Sevelamer No 1{table TID Sevelamer Carbonate Carbonate t_with_ Carbonate 800 MG 800 MG meals} 800 MG Pantoprazol Pantoprazol No 1{table QD Pantoprazo e Sodium 40 e Sodium 40 t} le Sodium MG MG 40 MG busPIRone busPIRone No 1{table BID busPIRone HCl 5 MG HCl 5 MG t} HCl 5 MG Levothyroxi Levothyroxi No Levothyrox ne Sodium ne Sodium ine Sodium 150 MCG 150 MCG 150 MCG Clopidogrel Clopidogrel No 1{table QD Clopidogre Bisulfate Bisulfate t} l 75 MG 75 MG Bisulfate 75 MG Insulin Insulin No Insulin Lispro 100 Lispro 100 Lispro 100 UNIT/ML UNIT/ML UNIT/ML Calcitriol Calcitriol No 1{capsu QD Calcitriol 0.25 MCG 0.25 MCG le} 0.25 MCG buPROPion buPROPion No 1{table QD buPROPion HCl ER (SR) HCl ER (SR) t_in_th HCl ER 150 MG 150 MG e_morni (SR) 150 ng} MG Loratadine Loratadine No 1{table QD Loratadine 10 MG 10 MG t} 10 MG Midodrine Midodrine No BID Midodrine HCl 5 MG HCl 5 MG HCl 5 MG Levothyroxi Levothyroxi No QD Levothyrox ne Sodium ne Sodium ine Sodium 150 MCG 150 MCG 150 MCG Insulin Insulin No Insulin Glargine Glargine Glargine 100 UNIT/ML 100 UNIT/ML 100 UNIT/ML Metoprolol Metoprolol No Metoprolol Tartrate 25 Tartrate 25 Tartrate MG MG 25 MG Atorvastati Atorvastati No Atorvastat n Calcium n Calcium in Calcium 40 MG 40 MG 40 MG Aspirin 81 Aspirin 81 No 1{table QD Aspirin 81 81 MG 81 MG t} 81 MG Pantoprazol Pantoprazol No 1{table QD Pantoprazo [...] ferol 50 (1999 [place]) (1999) MCG (1999) Levothyroxi Levothyroxi No QD [...] GM t_on_an 1 GM _empty_ stomach } Immunizations Ordered Filled Immunization Date Status Comments Sour e Immunization Name Name [place] [id number] 2021-07-27 Completed [facility] MRNA VACCINATION 00:00:00 [place] [address] 2021-07-27 Completed [facility] Completed [facility] MRNA VACCINATION 00:00:00 [place] [address] 2021-07-27 Completed [facility] MRNA VACCINATION 00:00:00 [place] [address] 2021-07-27 Completed [facility] MRNA VACCINATION 00:00:00 [place] [address] 2021-07-27 Completed [facility] MRNA VACCINATION 00:00:00 [place] [address] 2021-07-27 Completed [facility] MRNA VACCINATION 00:00:00 [place] [address] 2021-07-27 Completed [facility] MRNA VACCINATION 00:00:00 [place] [address] 2021-07-27 Completed [facility] MRNA VACCINATION 00:00:00 [facility] PFIZER COVID-19 2021-07-27 Completed [facility] MRNA VACCINATION 00:00:00 Hospital SARS-COV-2 COVID-19 2021-07-27 Completed Unive rsity of PFIZER VACCINE 00:00:00 [facility] SARS-COV-2 COVID-19 2021-07-27 Completed Unive rsity of PFIZER VACCINE 00:00:00 [facility] SARS-COV-2 COVID-19 2021-07-27 Completed Unive rsity of PFIZER VACCINE 00:00:00 [facility] SARS-COV-2 COVID-19 2021-07-27 Completed Unive rsity of PFIZER VACCINE 00:00:00 [facility] SARS-COV-2 COVID-19 2021-07-27 Completed Unive rsity of PFIZER VACCINE 00:00:00 [facility] PFIZER COVID-19 2021-07-27 Completed [facility] MRNA VACCINATION 00:00:00 [facility] Influenza Virus 2021-04-20 Completed Universit y of Vaccine 00:00:[address] [facility] Influenza Virus 2021-04-20 Completed Universit y of Vaccine 00:00:[address] [facility] Influenza Virus 2021-04-20 Completed Universit y of Vaccine 00:00:[address] [facility] Influenza Virus 2021-04-20 Completed Universit y of Vaccine 00:00:[address] [facility] Influenza Virus 2021-04-20 Completed Universit y of Vaccine 00:00:[address] [facility] PFIZER COVID-19 2021-02-25 Completed [facility] MRNA VACCINATION 00:00:00 Hospital PFIZER COVID-19 2021-02-25 Completed [facility] MRNA VACCINATION 00:00:00 [facility] PFIZER COVID-19 2021-02-25 Completed [facility] MRNA VACCINATION 00:00:00 Hospital PFIZER COVID-19 2021-02-25 Completed [facility] MRNA VACCINATION 00:00:00 Hospital PFIZER COVID-19 2021-02-25 Completed [facility] MRNA VACCINATION 00:00:00 Hospital PFIZER COVID-19 2021-02-25 Completed [facility] MRNA VACCINATION 00:00:00 Hospital PFIZER COVID-19 2021-02-25 Completed [facility] MRNA VACCINATION 00:00:00 Hospital PFIZER COVID-19 2021-02-25 Completed [facility] MRNA VACCINATION 00:00:00 [facility] PFIZER COVID-19 2021-02-25 Completed [facility] MRNA VACCINATION 00:00:00 Hospital PFIZER COVID-19 2021-02-25 Completed [facility] MRNA VACCINATION 00:00:00 [facility] SARS-COV-2 COVID-19 2021-02-25 Completed Unive rsity of PFIZER VACCINE 00:00:00 [facility] SARS-COV-2 COVID-19 2021-02-25 Completed Unive rsity of PFIZER VACCINE 00:00:00 [facility] SARS-COV-2 COVID-19 2021-02-25 Completed Unive rsity of PFIZER VACCINE 00:00:00 [facility] SARS-COV-2 COVID-19 2021-02-25 Completed Unive rsity of PFIZER VACCINE 00:00:00 [facility] SARS-COV-2 COVID-19 2021-02-25 Completed Unive rsity of PFIZER VACCINE 00:00:00 [facility] PFIZER COVID-19 2021-02-25 Completed [facility] MRNA VACCINATION 00:00:00 [facility] PFIZER COVID-19 2021-01-06 Completed [facility] MRNA VACCINATION 00:00:00 [facility] PFIZER COVID-19 2021-01-06 Completed [facility] MRNA VACCINATION 00:00:00 [facility] PFIZER COVID-19 2021-01-06 Completed [facility] MRNA VACCINATION 00:00:00 [facility] PFIZER COVID-19 2021-01-06 Completed [facility] MRNA VACCINATION 00:00:00 [facility] PFIZER COVID-19 2021-01-06 Completed [facility] MRNA VACCINATION 00:00:00 Hospital PFIZER COVID-19 2021-01-06 Completed [facility] MRNA VACCINATION 00:00:00 [facility] PFIZER COVID-19 2021-01-06 Completed [facility] MRNA VACCINATION 00:00:00 Hospital PFIZER COVID-19 2021-01-06 Completed [facility] MRNA VACCINATION 00:00:00 Hospital PFIZER COVID-19 2021-01-06 Completed [facility] MRNA VACCINATION 00:00:00 Hospital PFIZER COVID-19 2021-01-06 Completed [facility] MRNA VACCINATION 00:00:00 [facility] SARS-COV-2 COVID-19 2021-01-06 Completed Unive rsity of PFIZER VACCINE 00:00:00 [facility] SARS-COV-2 COVID-19 2021-01-06 Completed Unive rsity of PFIZER VACCINE 00:00:00 [facility] SARS-COV-2 COVID-19 2021-01-06 Completed Unive rsity of PFIZER VACCINE 00:00:00 [facility] SARS-COV-2 COVID-19 2021-01-06 Completed Unive rsity of PFIZER VACCINE 00:00:00 [facility] SARS-COV-2 COVID-19 2021-01-06 Completed Unive rsity of PFIZER VACCINE 00:00:00 [facility] PFIZER COVID-19 2021-01-06 Completed [facility] MRNA VACCINATION 00:00:00 [facility] SARS-COV-2 COVID-19 2020-11-03 Completed Unive rsity [...] Unive rsity of VACCINE, BIVALENT 00:00:00 [facility] edical 0.2ML, PFIZER, Branch 6MO-4YRS, IM SARS-COV-2 COVID-19 2020-10-15 Completed Unive rsity of VACCINE, BIVALENT 00:00:00 [place] [facility] 0.2ML, PFIZER, Branch 6MO-4YRS, IM SARS-COV-2 COVID-19 2020-10-15 Completed Unive rsity of VACCINE, BIVALENT 00:00:00 [facility] edical 0.2ML, PFIZER, Branch 6MO-4YRS, IM Pneumococcal 2019-12-05 Completed University o f Polysaccharide, 00:00:00 [place] [facility] PPSV23 (PNEUMOVAX) Branch Pneumococcal 2019-12-05 Completed University o f Polysaccharide, 00:00:00 [place] [facility] PPSV23 (PNEUMOVAX) Branch Pneumococcal 2019-12-05 Completed University o f Polysaccharide, 00:00:00 [place] [facility] PPSV23 (PNEUMOVAX) Branch Pneumococcal 2019-12-05 Completed University o f Polysaccharide, 00:00:00 [place] [facility] PPSV23 (PNEUMOVAX) Branch Pneumococcal 2019-12-05 Completed University o f Polysaccharide, 00:00:00 [place] [facility] PPSV23 (PNEUMOVAX) Branch TDAP 2019-08-19 Completed University of 00:00:[address] [facility] TDAP 2019-08-19 Completed University of 00:00:[address] [facility] TDAP 2019-08-19 Completed University of 00:00:[address] [facility] TDAP 2019-08-19 Completed University of 00:00:[address] [facility] TDAP 2019-08-19 Completed University of 00:00:[address] [facility] Flu Trivalent 2019-04-28 Completed University of 00:00:[address] [facility] Influenza Virus 2019-04-28 Completed Universit y of Vaccine Quad IM 3+ 00:00:00 [facility] Flu Trivalent 2019-04-28 Completed University of 00:00:[address] [facility] Influenza Virus 2019-04-28 Completed Universit y of Vaccine Quad IM 3+ 00:00:00 [facility] Flu Trivalent 2019-04-28 Completed University of 00:00:[address] [facility] Influenza Virus 2019-04-28 Completed Universit y of Vaccine Quad IM 3+ 00:00:00 [facility] Flu Trivalent 2019-04-28 Completed University of 00:00:[address] [facility] Influenza Virus 2019-04-28 Completed Universit y of Vaccine Quad IM 3+ 00:00:00 [facility] Flu Trivalent 2019-04-28 Completed University of 00:00:[address] [facility] Influenza Virus 2019-04-28 Completed Universit y of Vaccine Quad IM 3+ 00:00:00 [facility] Flu Trivalent 2018-03-18 Completed University of 00:00:[address] [facility] Flu Trivalent 2018-03-18 Completed University of 00:00:[address] [facility] Flu Trivalent 2018-03-18 Completed University of 00:00:[address] [facility] Flu Trivalent 2018-03-18 Completed University of 00:00:[address] [facility] Flu Trivalent 2018-03-18 Completed University of 00:00:[address] [facility] Flu Split Virus, 2017-04-26 Completed Universi ty of PSA 00:00:[address] [facility] Flu Split Virus, 2017-04-26 Completed Universi ty of PSA 00:00:[address] [facility] Flu Split Virus, 2017-04-26 Completed Universi ty of PSA 00:00:[address] [facility] Flu Split Virus, 2017-04-26 Completed Universi ty of PSA 00:00:[address] [facility] Flu Split Virus, 2017-04-26 Completed Universi ty of PSA 00:00:[address] [facility] Flu Split Virus, 2016-05-01 Completed Universi ty of PSA 00:00:[address] [facility] Flu Split Virus, 2016-05-01 Completed Universi ty of PSA 00:00:[address] [facility] Flu Split Virus, 2016-05-01 Completed Universi ty of PSA 00:00:[address] [facility] Flu Split Virus, 2016-05-01 Completed Universi ty of PSA 00:00:[address] [facility] Flu Split Virus, 2016-05-01 Completed Universi ty of PSA 00:00:[address] [facility] Flu Split Virus, 2015-04-29 Completed Universi ty of PSA 00:00:[address] [facility] Flu Split Virus, 2015-04-29 Completed Universi ty of PSA 00:00:[address] [facility] Flu Split Virus, 2015-04-29 Completed Universi ty of PSA 00:00:[address] [facility] Flu Split Virus, 2015-04-29 Completed Universi ty of PSA 00:00:[address] [facility] Flu Split Virus, 2015-04-29 Completed Universi ty of PSA 00:00:[address] [facility] Pneumococcal 2012-05-03 Completed University o f Polysaccharide, 00:00:00 [place] [facility] PPSV23 (PNEUMOVAX) Branch Pneumococcal 2012-05-03 Completed University o f Polysaccharide, 00:00:00 [place] [facility] PPSV23 (PNEUMOVAX) Branch Pneumococcal 2012-05-03 Completed University o f Polysaccharide, 00:00:00 [place] [facility] PPSV23 (PNEUMOVAX) Branch Pneumococcal 2012-05-03 Completed University o f Polysaccharide, 00:00:00 [place] [facility] PPSV23 (PNEUMOVAX) Branch Pneumococcal 2012-05-03 Completed University o f Polysaccharide, 00:00:00 [place] [facility] PPSV23 (PNEUMOVAX) Branch TDAP 2009-09-06 Completed University of 00:00:[address] [facility] TDAP 2009-09-06 Completed University of 00:00:[address] [facility] TDAP 2009-09-06 Completed University of 00:00:[address] [facility] TDAP 2009-09-06 Completed University of 00:00:[address] [facility] TDAP 2009-09-06 Completed University of 00:00:[address] [facility] Pneumococcal 2008-07-09 Completed University o f Polysaccharide, 00:00:00 [place] [facility] PPSV23 (PNEUMOVAX) Branch Pneumococcal 2008-07-09 Completed University o f Polysaccharide, 00:00:00 [place] [facility] PPSV23 (PNEUMOVAX) Branch Pneumococcal 2008-07-09 Completed University o f Polysaccharide, 00:00:00 [place] [facility] PPSV23 (PNEUMOVAX) Branch Pneumococcal 2008-07-09 Completed University o f Polysaccharide, 00:00:00 [place] [facility] PPSV23 (PNEUMOVAX) Branch Pneumococcal 2008-07-09 Completed University o f Polysaccharide, 00:00:00 [place] [facility] PPSV23 (PNEUMOVAX) Branch Vital Signs Vital Name Observation Time Observation Value Comments Source Systolic blood 2022-12-22 22:25:00 137 mm[Hg] Univer sity of pressure [facility] Diastolic blood 2022-12-22 22:25:00 73 mm[Hg] Unive rsity of pressure [facility] Heart rate 2022-12-22 22:25:00 103 /min [facility] [place] [facility] Oxygen saturation in 2022-12-22 22:25:00 98 /min University of Arterial blood by [facility] Pulse oximetry Branch Respiratory rate 2022-12-22 21:00:00 13 /min Univ ers[facility] [place] [facility] Body temperature 2022-12-22 17:00:00 36.11 Katharina [facility] [place] [facility] Body weight 2022-12-22 17:00:00 76.5 kg [facility] [place] [facility] BMI 2022-12-22 17:00:00 27.22 kg/m2 [facility] [place] [facility] Body height 2022-12-15 03:29:00 167.6 cm [facility] [place] [facility] Body temperature 2022-12-21 20:00:00 36.33 Katahrina [facility] [place] [facility] Systolic blood 2022-12-21 17:00:00 130 mm[Hg] Univer sity of pressure [facility] Diastolic blood 2022-12-21 17:00:00 71 mm[Hg] Unive rsity of pressure [facility] Heart rate 2022-12-21 17:00:00 85 /min [facility] [place] [facility] Respiratory rate 2022-12-21 17:00:00 12 /min Univ [facility] [place] [facility] Oxygen saturation in 2022-12-21 17:00:00 100 /min University of Arterial blood by [facility] Pulse oximetry Branch Body weight 2022-12-21 11:04:00 80.468 kg [facility] [place] [facility] BMI 2022-12-21 11:04:00 27.22 kg/m2 [facility] [place] [facility] Body height 2022-12-15 03:29:00 167.6 cm [facility] [place] [facility] Systolic blood 2022-11-07 20:23:00 130 mm[Hg] Univer sity of pressure [facility] Diastolic blood 2022-11-07 20:23:00 58 mm[Hg] Unive rsity of pressure [facility] Heart rate 2022-11-07 20:23:00 62 /min [facility] Body temperature 2022-11-07 20:23:00 36.11 Katharina [facility] [place] [facility] Respiratory rate 2022-11-07 20:23:00 17 /min [facility] Oxygen saturation in 2022-11-07 20:23:00 100 /min [facility] blood by [facility] Pulse oximetry Branch Body weight 2022-11-06 17:09:00 74 kg [facility] BMI 2022-11-06 17:09:00 26.33 kg/m2 [facility] Body height 2022-11-04 22:57:00 167.6 cm [facility] height 2022-08-15 10:20:00 66.0 [in_i] [facility] weight 2022-08-15 10:20:00 224.4 [lb_av] [facility] temperature 2022-08-15 10:20:00 97.0 [degF] [facility] bmi 2022-08-15 10:20:00 36.22 kg/m2 [facility] oximetry 2022-08-15 10:20:00 96 % [facility] respiratory rate 2022-08-15 10:20:00 17 /min Comm on [facility] blood pressure 2022-08-15 10:20:00 131 mm[Hg] [facility] - systolic [facility] blood pressure 2022-08-15 10:20:00 72 mm[Hg] Common [facility] diastolic [facility] height 2022-02-27 11:20:00 66.0 [in_i] [facility] weight 2022-02-27 11:20:00 236.6 [lb_av] [facility] temperature 2022-02-27 11:20:00 97.2 [degF] [facility] bmi 2022-02-27 11:20:00 38.18 kg/m2 [facility] oximetry 2022-02-27 11:20:00 94 % [facility] respiratory rate 2022-02-27 11:20:00 16 /min Comm on [facility] blood pressure 2022-02-27 11:20:00 138 mm[Hg] Common [facility] - systolic [facility] blood pressure 2022-02-27 11:20:00 76 mm[Hg] [facility] - diastolic [facility] height 2022-02-27 11:00:00 66.0 [in_i] [facility] weight 2022-02-27 11:00:00 236.6 [lb_av] [facility] temperature 2022-02-27 11:00:00 97.2 [degF] [facility] bmi 2022-02-27 11:00:00 38.18 kg/m2 [facility] oximetry 2022-02-27 11:00:00 93 % [facility] respiratory rate 2022-02-27 11:00:00 16 /min Comm on [facility] blood pressure 2022-02-27 11:00:00 138 mm[Hg] [facility] - systolic [facility] blood pressure 2022-02-27 11:00:00 76 mm[Hg] Common [facility] diastolic [facility] Systolic blood 2020-10-14 14:10:00 120 mm[Hg] Univer sity of [facility] Diastolic blood 2020-10-14 14:10:00 65 mm[Hg] Unive rsity of [facility] Heart rate 2020-10-14 14:10:00 81 /min [facility] Body temperature 2020-10-14 14:10:00 36.06 Katharina [facility] Res[facility] 2020-10-14 14:10:00 13 /min [facility] Oxygen saturation in 2020-10-14 14:10:00 99 /min [facility] Arterial blood by [facility] Pulse oximetry Branch Body height 2020-10-01 18:42:00 167.6 cm [facility] Body weight 2020-10-01 18:42:00 108.4 kg [facility] BMI 2020-10-01 18:42:00 38.59 kg/m2 [facility] Systolic blood 2020-10-14 14:10:00 120 mm[Hg] Univer sity of pressure [facility] Diastolic blood 2020-10-14 14:10:00 65 mm[Hg] Unive rsity of pressure [facility] Heart rate 2020-10-14 14:10:00 81 /min [facility] Body temperature 2020-10-14 14:10:00 36.06 Katharina [facility] Respiratory rate 2020-10-14 14:10:00 13 /min [facility] Oxygen saturation in 2020-10-14 14:10:00 99 /min University of Arterial blood by [place] [employer] [facility] Pulse oximetry Branch Body height 2020-10-01 18:42:00 167.6 cm [facility] Body weight 2020-10-01 18:42:00 108.4 kg [facility] BMI 2020-10-01 18:42:00 38.59 kg/m2 [facility] Systolic blood 2020-04-01 13:55:00 113 mm[Hg] Univer sity of pressure [facility] Diastolic blood 2020-04-01 13:55:00 56 mm[Hg] Unive rsity of pressure [facility] Heart rate 2020-04-01 13:55:00 63 /min [facility] Body temperature 2020-04-01 13:55:00 36.11 Katharina [facility] Oxygen saturation in 2020-04-01 13:50:00 100 /min University of Arterial blood by [place] [employer] [facility]ose Pulse oximetry Branch Respiratory rate 2020-04-01 13:45:00 18 /min [facility] Body height 2020-03-30 17:15:00 167.6 cm [facility] Body weight 2020-03-30 17:15:00 108.41 kg [facility] BMI 2020-03-30 17:15:00 38.58 kg/m2 [facility] [place] [facility] Systolic blood 2020-04-01 13:55:00 113 mm[Hg] Univer sity of pressure [facility] Diastolic blood 2020-04-01 13:55:00 56 mm[Hg] Unive rsity of pressure [facility] Heart rate 2020-04-01 13:55:00 63 /min Universi ty [facility] Body temperature 2020-04-01 13:55:00 36.11 Katharina [facility] Oxygen saturation in 2020-04-01 13:50:00 100 /min University Arterial blood by [facility] Pulse oximetry Branch Respiratory rate 2020-04-01 13:45:00 18 /min [facility] Body height 2020-03-30 17:15:00 [facility] 2020-03-30 17:15:00 108.41 kg Universi [facility] BMI 2020-03-30 17:15:00 38.58 kg/m2 [facility] Respiratory rate 2020-04-01 13:32:00 18 /min [facility] Respiratory rate 2020-04-01 13:32:00 18 /min [facility] Heart rate 2022-04-26 17:30:00 76 /min [facility] Oxygen saturation in 2022-04-26 17:30:00 93 /min [facility] Arterial blood by Pulse oximetry Respiratory rate 2022-04-26 17:20:00 16 /min [facility] Systolic blood 2022-04-26 17:20:00 139 mm[Hg] [facility] pressure Diastolic blood 2022-04-26 17:20:00 67 mm[Hg] [facility] pressure Body temperature 2022-04-26 17:00:00 36.44 Katharina [facility] Body height 2022-04-24 17:06:00 167.6 cm [facility] Body weight 2022-04-24 17:06:00 110.224 kg [facility] BMI 2022-04-24 17:06:00 39.22 kg/m2 [facility] Systolic (mm Hg) 2021-02-23 20:05:00 [facility] Diastolic (mm Hg) 2021-02-23 20:05:00 [facility] Heart Rate 2021-02-23 20:05:00 [facility] Respitory Rate 2021-02-23 20:05:00 [facility] Height 2021-02-23 20:05:00 162.56 cm Yakov Saucedo Weight 2021-02-23 20:05:00 Yakov Saucedo BMI Calculated 2021-02-23 20:05:00 Sriram Renaeann Procedures Procedure Date / Time Performing Source Performed Clinician POCT GLUCOSE (AUTOMATED) 2022-12-22 [facility] 16:44:00 Medical Branch POCT GLUCOSE (AUTOMATED) 2022-12-22 Fina [facility] 16:44:00 Medical Branch POCT GLUCOSE (AUTOMATED) 2022-12-22 Fnia [facility] 11:06:00 Medical Branch POCT GLUCOSE (AUTOMATED) 2022-12-22 Fina [facility] 11:06:00 Medical Branch BASIC METABOLIC PANEL (NA, K, 2022-12-22 [facility] [place] CL, CO2, GLUCOSE, BUN, 10:26:00 Medical B ranch CREATININE, CA) CBC WITH DIFF [facility] 10:26:[facility] Medical Branch BASIC METABOLIC PANEL (NA, K, 2022-12-22 [facility] [place] CL, CO2, GLUCOSE, BUN, 10:26:00 Medical B ranch CREATININE, CA) CBC WITH DIFF 2022[facility]12-[facility] 10:26:00 Medical Branch POCT GLUCOSE (AUTOMATED) 2022-12-22 [facility] 05:04:00 Medical Branch POCT GLUCOSE (AUTOMATED) 2022-12-22 Fina [facility] 05:04:00 Medical Branch POCT GLUCOSE (AUTOMATED) 2022-12-21 Fina [facility] 23:16:00 Medical Branch POCT GLUCOSE (AUTOMATED) 2022-12-21 Fina [facility] 23:16:00 Medical Branch XR CHEST 1 VW 2022-12-21 [facility] 22:14:57 Medical Branch XR CHEST 1 VW 2022-12-21 Essence [facility] xas 22:14:57 Medical Branch FL TIME OR (NON-REPORTABLE) 2022-12-21 [facility] 21:41:14 Medical Branch FL TIME OR (NON-REPORTABLE) 2022-12-21 [facility] 21:41:14 Medical Branch PERMACATH PLACEMENT [facility] 20:[facility] Medical Branch PERMACATH PLACEMENT 2022-12-21 Lowry, [facility] 20:31:00 Medical Branch POCT GLUCOSE (AUTOMATED) 2022-12-21 Liya [facility] 17:16:00 Medical Branch POCT GLUCOSE (AUTOMATED) 2022-12-21 Liya [facility] 17:16:00 Medical Branch POCT GLUCOSE (AUTOMATED) 2022-12-21 Liya [facility] 11:08:00 Medical Branch POCT GLUCOSE (AUTOMATED) 2022-12-21 Liya [facility] 11:08:00 Medical Branch POCT GLUCOSE (AUTOMATED) 2022-12-21 Liya [facility] 05:06:00 Medical Branch POCT GLUCOSE (AUTOMATED) 2022-12-21 Liya [facility] 05:06:00 Medical Branch POCT GLUCOSE (AUTOMATED) 2022-12-20 [facility] 23:00:00 Medical Branch POCT GLUCOSE (AUTOMATED) 2022-12-20 Liya [facility] 23:00:00 Medical Branch POCT GLUCOSE (AUTOMATED) 2022-12-20 [facility] 16:50:00 Medical Branch POCT GLUCOSE (AUTOMATED) 2022-12-20 [facility] 16:50:00 Medical Branch PHOSPHORUS 2022-12-20 [facility] 09[facility]12:00 Medical Branch MAGNESIUM 2022-12-20 [facility] Te [place] 09:12:00 Medical Branch HEPATIC FUNCTION PANEL 2022-12-20 [facility] ([id number]) (ALB,T.PRO,BILI 09:12:00 Medical Branch T,BU/BC,ALT,AST,ALK PHOS) BASIC METABOLIC PANEL (NA, K, 2022-12-20 [facility] [place] CL, CO2, GLUCOSE, BUN, 09:12:00 Medical B ranch CREATININE, CA) CBC WITH DIFF 2022-12-20 [facility] 09:12:00 Medical Branch PHOSPHORUS 2022-12-20 [facility] xas 09:12:00 Medical Branch MAGNESIUM 2022-12-20 [facility] xas 09:12:00 Medical Branch HEPATIC FUNCTION PANEL 2022-12-20 [facility] ([id number]) (ALB,T.PRO,BILI 09:12:00 Medical Branch T,BU/BC,ALT,AST,ALK PHOS) BASIC METABOLIC PANEL (NA, K, 2022-12-20 [facility] [place] CL, CO2, GLUCOSE, BUN, 09:12:00 Medical B ranch CREATININE, CA) CBC WITH DIFF 2022-12-20 [facility] xas 09:12:00 Medical Branch POCT GLUCOSE (AUTOMATED) 2022-12-20 [facility] 09:10:00 Medical Branch POCT GLUCOSE (AUTOMATED) 2022-12-20 Liya [facility] 09:10:00 Medical Branch POCT GLUCOSE (AUTOMATED) 2022-12-20 [facility] 05:17:00 Medical Branch POCT GLUCOSE (AUTOMATED) 2022-12-20 [facility]ya [facility] 05:17:00 Medical Branch POCT GLUCOSE (AUTOMATED) 2022-12-19 [facility] 23:10:00 Medical Branch POCT GLUCOSE (AUTOMATED) 2022-12-19 Liya [facility] 23:10:00 Medical Branch POCT GLUCOSE (AUTOMATED) 2022-12-19 Liya [facility] 16:53:00 Medical Branch POCT GLUCOSE (AUTOMATED) 2022-12-19 Liya [facility] 16:53:00 Medical Branch POCT GLUCOSE (AUTOMATED) 2022-12-19 Liya [facility] 11:08:00 Medical Branch POCT GLUCOSE (AUTOMATED) 2022-12-19 Liya [facility] 11:08:00 Medical Branch PHOSPHORUS 2022-12-19 [facility] xas 09:38:00 Medical Branch MAGNESIUM 2022-12-19 Armin [facility] xas 09:38:00 Medical Branch BASIC METABOLIC PANEL (NA, K, 2022-12-19 [facility] CL, CO2, GLUCOSE, BUN, 09:38:00 Medical B ranch CREATININE, CA) CBC WITH DIFF 2022-12-19 Armin [facility] xas 09:38:00 Medical Branch PHOSPHORUS 2022-12-19 Armin [facility] xas 09:38:00 Medical Branch MAGNESIUM 2022-12-19 Arm[facility] xas 09:38:00 Medical Branch BASIC METABOLIC PANEL (NA, K, 2022-12-19 [place] [facility] CL, CO2, GLUCOSE, BUN, 09:38:00 Medical B ranch CREATININE, CA) CBC WITH DIFF 2022-12-19 Arm[facility] xa 09:38:00 Medical Branch POCT GLUCOSE (AUTOMATED) 2022-12-19 Liya [facility] 05:05:00 Medical Branch POCT GLUCOSE (AUTOMATED) 2022-12-19 Liya [facility] 05:05:00 Medical Branch XR NECK SOFT TISSUE 2022-12-19 [facility] 03:07:00 Medical Branch XR NECK SOFT TISSUE 2022-12-19 [facility] 03:07:00 Medical Branch POCT GLUCOSE (AUTOMATED) 2022-12-18 Liya [facility] 22:57:00 Medical Branch POCT GLUCOSE (AUTOMATED) 2022-12-18 Liya [facility] 22:57:00 Medical Branch POCT GLUCOSE (AUTOMATED) 2022-12-18 Liya [facility] 16:32:00 Medical Branch POCT GLUCOSE (AUTOMATED) 2022-12-18 Liya [facility] 16:32:00 Medical Branch XR CHEST 1 VW 2022-12-18 [facility] xas 15:16:48 [facility] XR CHEST 1 VW 2022-12-18 Aaron, [facility] xa 15:16:48 [facility] POCT GLUCOSE (AUTOMATED) 2022-12-18 [facility] 10:48:00 Medical Branch POCT GLUCOSE (AUTOMATED) 2022-12-18 [facility] 10:48:00 [facility] BLOOD CULTURE SCREEN 2022-12-18 [facility] 10:13:00 [facility] BLOOD CULTURE SCREEN 2022-12-18 [facility] 10:13:00 [facility] BLOOD CULTURE SCREEN 2022-12-18 [facility] 10:12:00 [facility] PHOSPHORUS 2022-12-18 Armin [facility] xas 10:12:00 [facility] MAGNESIUM 2022-12-18 Armin [facility] xa 10:12:00 [facility] BASIC METABOLIC PANEL (NA, K, 2022-12-18 [place] [facility] CL, CO2, GLUCOSE, BUN, 10:12:00 Medical B ran CREATININE, CA) CBC WITH DIFF 2022-12-18 Armin [facility] xas 10:12:00 [facility] BLOOD CULTURE SCREEN 2022-12-18 [facility] 10:12:00 [facility] PHOSPHORUS 2022-12-18 Armin [facility] xas 10:12:00 [facility] MAGNESIUM 2022-12-18 Armin [facility] xa 10:12:00 [facility] BASIC METABOLIC PANEL (NA, K, 2022-12-18 [place] [facility] CL, CO2, GLUCOSE, BUN, 10:12:00 Medical B ranch CREATININE, CA) CBC WITH DIFF 2022-12-18 Armin [facility] xa 10:12:00 [facility] POCT GLUCOSE (AUTOMATED) 2022-12-18 [facility] 05:42:00 Medical Branch POCT GLUCOSE (AUTOMATED) 2022-12-18 Liya [facility] 05:42:00 Medical Branch POCT GLUCOSE (AUTOMATED) 2022-12-17 [facility] 23:26:00 Medical Branch POCT GLUCOSE (AUTOMATED) 2022-12-17 [facility] 23:26:00 Medical Branch POCT GLUCOSE (AUTOMATED) 2022-12-17 Liya, [facility] 16:58:00 Medical Branch POCT GLUCOSE (AUTOMATED) 2022-12-17 [facility] 16:58:00 Medical Branch POCT GLUCOSE (AUTOMATED) 2022-12-17 [facility] 10:39:00 Medical Branch POCT GLUCOSE (AUTOMATED) 2022-12-17 [facility] 10:39:00 Medical Branch TROPONIN I 2022-12-17 [facility] 08:37:00 Medical Branch BASIC METABOLIC PANEL (NA, K, 2022-12-17 Bulmaro [facility] CL, CO2, GLUCOSE, BUN, 08:37:00 Medical [place] CREATININE, CA) CBC WITH DIFF 2022-12-17 [facility] xa 08:37:00 Medical Branch TROPONIN I 2022-12-17 [facility] xa 08:37:00 Medical Branch BASIC METABOLIC PANEL (NA, K, 2022-12-17 [place] [facility], CO2, GLUCOSE, BUN, 08:37:00 Medical [place] CREATININE, CA) CBC WITH DIFF 2022-12-17 [facility] xas 08:37:00 Medical Branch POCT GLUCOSE (AUTOMATED) 2022-12-17 Liya [facility] 04:20:00 Medical Branch POCT GLUCOSE (AUTOMATED) 2022-12-17 [facility] 04:20:00 Medical Branch POCT GLUCOSE (AUTOMATED) 2022-12-16 [facility] 23:24:00 Medical Branch POCT GLUCOSE (AUTOMATED) 2022-12-16 [facility] [address] [facility] 23:24:00 Medical Branch POCT GLUCOSE (AUTOMATED) 2022-12-16 [facility] 16:42:00 Medical Branch POCT GLUCOSE (AUTOMATED) 2022-12-16 [facility] 16:42:00 Medical Branch CATHETER TIP CULTURE 2022-12-16 [facility] 16:13[facility]00 Medical Branch CATHETER TIP CULTURE 2022-12-16 [facility] 16:13:00 Medical Branch POCT GLUCOSE (AUTOMATED) 2022-12-16 [facility] 11:14:00 Medical Branch POCT GLUCOSE (AUTOMATED) 2022-12-16 [facility] 11:14:00 Medical Branch BLOOD CULTURE SCREEN 2022-12-16 [facility] 10:00:00 Medical Branch BLOOD CULTURE SCREEN 2022-12-16 [facility] 10:00:00 Medical Branch BLOOD CULTURE SCREEN 2022-12-16 [facility] 09:49:00 Medical Branch TROPONIN I 2022-12-16 [facility] xa 09:49:00 [facility] HEPATIC FUNCTION PANEL 2022-12-16 [id number] (ALB,T.PRO,BILI 09:49:00 Medical Branch T,BU/BC,ALT,AST,ALK PHOS) BASIC METABOLIC PANEL (NA, K, 2022-12-16 [facility], CO2, GLUCOSE, BUN, 09:49:00 Medical ranch CREATININE, CA) VANCOMYCIN RANDOM LEVEL 2022-12-16 Kari Brunson [facility] 09:49:00 P Medical Branch CBC WITH DIFF 2022-12-16 [facility] 09:49:00 Medical Branch BLOOD CULTURE SCREEN 2022-12-16 [facility] 09:49:00 Medical Branch TROPONIN I 2022-12-16 [facility] xas 09:49:00 Medical Branch HEPATIC FUNCTION PANEL 2022-12-16 [facility] ([id number]) (ALB,T.PRO,BILI 09:49:00 Medical Branch T,BU/BC,ALT,AST,ALK PHOS) BASIC METABOLIC PANEL (NA, K, 2022-12-16 [facility] CL, CO2, GLUCOSE, BUN, 09:49:00 Medical B [place] CREATININE, CA) VANCOMYCIN RANDOM LEVEL 2022-12-16 Kari Brunson [facility] 09:49:00 P Medical Branch CBC WITH DIFF 2022-12-16 [facility] 09:49:00 Medical Branch POCT GLUCOSE (AUTOMATED) 2022-12-16 [facility] 05:29:00 Medical Branch POCT GLUCOSE (AUTOMATED) 2022-12-16 [facility] 05:29:00 Medical Branch POCT GLUCOSE (AUTOMATED) 2022-12-15 [facility] 23:01:00 Medical Branch POCT GLUCOSE (AUTOMATED) 2022-12-15 [facility] 23:01:00 Medical Branch TROPONIN I 2022-12-15 [facility] xa 22:25:00 [facility] TRANSFUSE PACKED RBC 2022-12-15 Elizabet Flores [facility] 22:25:00 Medical Branch TROPONIN I 2022-12-15 [facility] xa 22:25:00 Medical Branch TRANSFUSE PACKED RBC 2022-12-15 Elizabet Flores [facility] 22:25:00 Medical Branch PREPARE PACKED RBC 2022-12-15 Bulmaro [facility] 22:05:53 [facility] PREPARE PACKED RBC 2022-12-15 Bulmaro [facility] 22:05:53 [facility] HEPATITIS B SURFACE ANTIBODY 2022-12-15 Elizabet Flores [facility] 21:30:00 Medical Branch HEPATITIS B SURFACE ANTIGEN 2022-12-15 Elizabet Flores [facility] 21:30:00 Medical Branch HEPATITIS B SURFACE ANTIBODY 2022-12-15 Elizabet Flores [facility] 21:30:00 Medical Branch HEPATITIS B SURFACE ANTIGEN 2022-12-15 [facility] 21:30:00 Medical Branch ABORH CONFIRMATION (LAB ONLY) 2022-12-15 [facility] [place] 17:58:00 Medical Branch ABORH CONFIRMATION (LAB ONLY) 2022-12-15 [facility] 17:58:00 Medical Branch POCT GLUCOSE (AUTOMATED) 2022-12-15 [facility] 17:57:00 Medical Branch POCT GLUCOSE (AUTOMATED) 2022-12-15 [facility], [facility] 17:57:00 Medical Branch TROPONIN I 2022-12-15 [facility] xas 16:29:00 Medical Branch HB ABO GROUPING 2022-12-15 Elizabet Flores [facility] 16:29:00 Medical Branch TROPONIN I 2022-12-15 [facility], [facility] xas 16:29:00 Medical Branch HB ABO GROUPING 2022-12-15 Elizabet Flores [facility] 16:29:00 Medical Branch XR ABDOMEN 1 VW 2022-12-15 [facility] xas 13:17:17 Medical Branch XR ABDOMEN 1 VW 2022-12-15 [facility], [facility] xas 13:17:17 Medical Branch TRANSTHORACIC ECHO (TTE) 2022-12-15 [facility] LIMITED W/ DOPPLER AND COLOR 12:57:[address] [facility] Branch TRANSTHORACIC ECHO (TTE) 2022-12-15 [facility], [facility] LIMITED W/ DOPPLER AND COLOR 12:57:00 Med ical Branch PHOSPHORUS 2022-12-15 [facility] xas 10:53:00 Medical Branch LIPASE 2022-12-15 Liya, [facility] xas 10:53:00 Medical Branch MAGNESIUM 2022-12-15 [facility] xas 10:53:00 Medical Branch TROPONIN I 2022-12-15 [facility], [facility] xas 10:53:00 Medical Branch BASIC METABOLIC PANEL (NA, K, 2022-12-15 [facility], CO2, GLUCOSE, BUN, 10:53:00 Medical B [place] CREATININE, CA) CBC WITH DIFF 2022-12-15 [facility], [facility] xas 10:53:00 Medical Branch N-TERMINAL PRO-BNP 2022-12-15 [facility] 10:53:00 Medical Branch PHOSPHORUS 2022-12-15 [facility] x[facility] 10:53:00 Medical Branch LIPASE 2022-12-15 [facility] x[facility] 10:53:00 Medical Branch MAGNESIUM 2022-12-15 [facility] x[facility] 10:53:00 Medical Branch TROPONIN I 2022-12-15 [facility], [facility] xas 10:53:00 Medical Branch BASIC METABOLIC PANEL (NA, K, 2022-12-15 Liya, [facility], CO2, GLUCOSE, BUN, 10:53:00 Medical [place] CREATININE, CA) CBC WITH DIFF 2022-12-15 [facility], [facility] xa 10:53:00 Medical Branch N-TERMINAL PRO-BNP 2022-12-15 [facility], [facility] 10:53:00 Medical Branch POCT GLUCOSE (AUTOMATED) 2022-12-15 [facility] 10:43:00 Medical Branch POCT GLUCOSE (AUTOMATED) 2022-12-15 [facility], [facility] 10:43:00 Medical Branch COMP. METABOLIC PANEL ([id number]) 2022-12-15 Tavo Nickerson [facility] 07:02:00 Medical Branch CBC WITH DIFF 2022-12-15 [facility] xas 07:02:00 Medical Branch LACTIC ACID WHOLE BLOOD 2022-12-15 [facility] 07:02:00 Medical Branch COMP. METABOLIC PANEL ([id number]) 2022-12-15 Tavo Nickerson [facility] 07:02:00 Medical Branch CBC WITH DIFF 2022-12-15 [facility] xa 07:02:00 Medical Branch LACTIC ACID WHOLE BLOOD 2022-12-15 Liya [facility] 07:02:00 Medical Branch TROPONIN I 2022-12-15 [facility] xas 05:08:00 Medical Branch MRSA / MSSA SCREEN BY PCR, 2022-12-15 [facility] NARES 05:08:00 Medical Branch TROPONIN I 2022-12-15 [facility] xas 05:08:00 Medical Branch MRSA / MSSA SCREEN BY PCR, 2022-12-15 [facility] 05:08:00 Medical Branch EXTERNAL PROVIDER RECORDS 2022-12-15 Doctor Unassigned, [facility] 05:01:00 [place] [facility] EXTERNAL PROVIDER RECORDS 2022-12-15 Doctor Unassigned, [facility] 05:01:00 [place] [facility] POCT GLUCOSE (AUTOMATED) 2022-12-15 Liya [facility] 04:59:00 Medical Branch POCT GLUCOSE (AUTOMATED) 2022-12-15 [facility] 04:59:00 Medical Branch XR FOOT 3+ VW RIGHT 2022-12-14 [facility] 23:40:41 Medical Branch XR FOOT 3+ VW RIGHT 2022-12-14 Luis Armando [facility] 23:40:41 Medical Branch NOTICE OF PRIVACY PRACTICES 2022-12-14 Doctor Unassigned, [facility] 23:30:56 [place] [facility] NOTICE OF PRIVACY PRACTICES 2022-12-14 Doctor Unassigned, [facility] 23:30:56 [place] [facility] CONSENT/REFUSAL FOR DIAGNOSIS 2022-12-14 Doctor Unassigned, [facility] AND TREATMENT 23:30:30 [place] [facility] CONSENT/REFUSAL FOR DIAGNOSIS 2022-12-14 Doctor Unassigned, [facility]MENT 23:30:30 [place] [facility] ASSIGNMENT OF BENEFITS 2022-12-14 Doctor Unassigned, [facility] 23:30:08 [place] [facility] ASSIGNMENT OF BENEFITS 2022-12-14 Doctor Unassigned, [facility] 23:30:08 [place] [facility] CT ABDOMEN PELVIS WO CONTRAST 2022-12-14 [facility] 23:30:[address] ABDOMEN PELVIS WO CONTRAST 2022-12-14 [facility] 23:30:00 Medical Branch XR CHEST 1 VW 2022-12-14 [facility] 23:20:00 Medical Branch XR CHEST 1 VW 2022-12-14 Sydmartine [facility] 23:20:00 Medical [place] HB ECG ROUTINE & RHYTHM STRIP 2022-12-14 Sydmartine [facility] 23:09:39 [facility] HB ECG ROUTINE & RHYTHM STRIP 2022-12-14 Sydmartine [facility] 23:09:39 [facility] POCT GLUCOSE (AUTOMATED) 2022-12-14 [facility] 22:56:00 Medical Branch POCT GLUCOSE (AUTOMATED) 2022-12-14 [facility] 22:56:00 Medical Branch LACTIC ACID WHOLE BLOOD 2022-12-14 [facility] 22:50:00 Medical Branch LACTIC ACID WHOLE BLOOD 2022-12-14 Luis Armando [facility] 22:50:00 Medical Branch LIPASE 2022-12-14 [facility] 22:49:00 Medical Branch MAGNESIUM 2022-12-14 [facility] xa 22:49:00 Medical Branch TROPONIN I 2022-12-14 Luis Armando [facility] 22:49:00 Medical Branch COMP. METABOLIC PANEL ([id number]) 2022-12-14 [facility] 22:49:00 Medical Branch CBC WITH DIFF 2022-12-14 Luis Armando [facility] 22:49:00 Medical Branch N-TERMINAL PRO-BNP 2022-12-14 Luis Armando Romio [facility] 22:49:00 Medical Branch BLOOD CULTURE WORKUP 2022-12-14 Luis [facility] 22:49:00 Medical Branch BLOOD CULTURE WORKUP 2022-12-14 [facility] 22:49:00 Medical Branch GRAM POSITIVE BLOOD PATHOGENS 2022-12-14 [facility] DNA PROBE-AEROBIC 22:49:00 Medical Branch BLOOD CULTURE SCREEN 2022-12-14 Luis Armando [facility] 22:49:00 Medical Branch LIPASE 2022-12-14 [facility] o [facility] 22:49:00 Medical Branch MAGNESIUM 2022-12-14 [facility] xas 22:49:00 Medical Branch TROPONIN I 2022-12-14 Sydmartine [facility] o [facility] 22:49:00 Medical Branch COMP. METABOLIC PANEL ([id number]) 2022-12-14 Luis Armando [facility] 22:49:00 Medical Branch CBC WITH DIFF 2022-12-14 Sydmartine [facility] o [facility] 22:49:00 Medical Branch N-TERMINAL PRO-BNP 2022-12-14 Luis [facility]ando [facility] 22:49:00 Medical Branch BLOOD CULTURE WORKUP 2022-12-14 Luis Armando [facility] 22:49:00 Medical Branch BLOOD CULTURE WORKUP 2022-12-14 [facility] 22:49:00 Medical Branch GRAM POSITIVE BLOOD PATHOGENS 2022-12-14 [facility] DNA PROBE-AEROBIC 22:49:00 Medical Branch BLOOD CULTURE SCREEN 2022-12-14 [facility] 22:49:00 Medical Branch POCT GLUCOSE (AUTOMATED) 2022-11-07 [place] [facility] 21:57:00 Medical Branch POCT GLUCOSE (AUTOMATED) 2022-11-07 [place] [facility] 16:44:00 Medical Branch POCT GLUCOSE (AUTOMATED) 2022-11-07 [place] [facility] 13:11:00 Medical Branch BASIC METABOLIC PANEL (NA, K, 2022-11-07 [facility], CO2, GLUCOSE, BUN, 08:55:00 Medical B [place] CREATININE, CA) CBC WITH DIFF 2022-11-07 Shlomo [facility] 08:55:00 Medical Branch POCT GLUCOSE (AUTOMATED) 2022-11-06 [place] [facility] 21:39:00 Medical [place] POCT GLUCOSE (AUTOMATED) 2022-11-06 [place] [facility] 16:26:00 Medical Branch TROPONIN I 2022-11-06 [facility] xa 14:09:00 Medical Branch HEPATITIS B SURFACE ANTIBODY 2022-11-06 Enrrique Hodges [facility] 14:09:00 Medical Branch HEPATITIS B SURFACE ANTIGEN 2022-11-06 Enrrique Hodges [facility] 14:09:00 Medical [place] POCT GLUCOSE (AUTOMATED) 2022-11-06 [place] [facility] 12:39:00 Medical [place] BASIC METABOLIC PANEL (NA, K, 2022-11-06 [facility] CL, CO2, GLUCOSE, BUN, 08:56:00 Medical B ran CREATININE, CA) CBC WITH DIFF 2022-11-06 salvatore [facility] 08:56:00 [facility] N-TERMINAL PRO-BNP 2022-11-06 Shlomo [facility] 08:56:00 Medical [place] EXTERNAL PROVIDER RECORDS 2022-11-06 Doctor Unassigned, [facility] 05:01:00 [place] [facility] DISCLOSURE AND CONSENT, 2022-11-06 Doctor Unassigned, [facility] MEDICAL AND SURGICAL 05:01:00 [place] [facility] PROCEDURES POCT GLUCOSE (AUTOMATED) 2022-11-06 [place] [facility] 01:40:00 Medical Branch POCT GLUCOSE (AUTOMATED) 2022-11-05 [place] [facility] 22:02:00 Medical [place] POCT GLUCOSE (AUTOMATED) 2022-11-05 [place] [facility] 16:39:00 [facility] TRANSTHORACIC ECHO (TTE) 2022-11-05 [facility] COMPLETE W/ CONTRAST 14:33:00 Medical [facility] POCT GLUCOSE (AUTOMATED) 2022-11-05 [place] [facility] 12:53:00 [facility] PHOSPHORUS 2022-11-05 [facility] xa 09:24:00 [facility] Branch MAGNESIUM 2022-11-05 [facility], [facility] 09:24:00 [facility] TROPONIN I 2022-11-05 [facility], [facility] 09:24:00 [facility] COMP. METABOLIC PANEL ([id number]) 2022-11-05 [facility] 09:24:00 [facility] LIPID PANEL ([id number])(TOTAL 2022-11-05 [facility] CHOLESTEROL, TRIGLYCERIDES, 09:24:00 [facility] HDL) CBC WITH DIFF 2022-11-05 [facility] 09:24:00 [facility] N-TERMINAL PRO-BNP 2022-11-05 [facility] 09:24:00 [facility] TROPONIN I 2022-11-05 [facility], [facility] 02:39:00 [facility] BLOOD CULTURE SCREEN 2022-11-04 Katherin Persaud [facility] 21:48:00 [facility] RAPID INFLUENZA A/B 2022-11-04 Katherin Persaud [facility] 20:50:00 [facility] WOUND CULTURE 2022-11-04 Katherin Persaud [facility] 20:50:00 [facility] COVID-19 (ID NOW RAPID 2022-11-04 Katherin Persaud [facility] TESTING) 20:50:00 [facility] LAB ONLY COVID INTERPRETATION 2022-11-04 Katherin Persaud [facility] 20:50:00 [facility] XR CHEST 1 VW 2022-11-04 Katherin Persaud [facility] ex 20:29:26 [facility] HB ECG ROUTINE & RHYTHM STRIP 2022-11-04 Katherin Persaud [facility] 19:39:09 Medical Branch PHOSPHORUS 2022-11-04 Katherin Persaud [facility] 19:31:00 Medical Branch CREATINE KINASE 2022-11-04 Katherin Persaud [facility] [place] 19:31:00 Medical Branch MAGNESIUM 2022-11-04 Katherin Persaud [facility] 19:31:00 Medical Branch TROPONIN I 2022-11-04 Katherin Persaud [facility] 19:31:00 Medical Branch FREE T4 2022-11-04 [facility] 19:31:00 Medical Branch THYROID STIMULATING HORMONE 2022-11-04 [facility] 19:31:00 Medical Branch COMP. METABOLIC PANEL ([id number]) 2022-11-04 Katherin Persaud [facility] 19:31:00 Medical Branch CBC WITH DIFF 2022-11-04 Katherin Persaud [facility] exas 19:31:00 Medical Branch GLYCOSYLATED HEMOGLOBIN (A1C) 2022-11-04 [facility] 19:31:00 Medical Branch URINALYSIS 2022-11-04 Katherin Persaud [facility] exas 19:31:00 Medical Branch N-TERMINAL PRO-BNP 2022-11-04 Katherin Persaud [facility] 19:31:00 Medical Branch FREE T3 2022-11-04 [facility] 19:31:00 Medical Branch LACTIC ACID WHOLE BLOOD 2022-11-04 Katherin Persaud [facility] 19:30:00 Medical Branch [id number] 2022-07-06 [facility] 00:00:00 [facility] [id number] 2022-07-04 [facility] 00:00:00 [facility] [id number] 2022-07-01 [facility] 00:00:00 [facility] [id number] 2022-06-29 [facility] 00:00:00 [facility] [id number] 2022-06-28 [facility] 00:00:00 [facility] [id number] 2022-06-27 [facility]MO [facility] 00:00:00 [facility] [id number] 2022-06-27 [facility] 00:00:00 [facility] [id number] 2022-06-27 [facility] 00:00:00 [facility] [id number] 2022-06-27 [facility] 00:00:00 [facility] [id number] 2022-06-26 [facility] 00:00:00 [facility] [id number] 2022-06-26 [facility] 00:00:00 [facility] [id number] 2022-06-26 [facility] 00:00:00 [facility] [id number] 2022-06-26 [facility] 00:00:00 [facility] [id number] 2022-06-26 [facility] 00:00:00 [facility] [id number] 2022-06-24 [facility] 00:00:00 [facility] [id number] 2022-06-23 [facility] 00:00:00 [facility] [id number] 2022-06-22 [facility] 00:00:00 [facility] POC GLUCOSE 2022-04-26 [facility] 16:04:00 E. DC AN ELECTIVE ENDOTRACHEAL 2022-04-26 Mariely De La Cruz [facility] AIR[facility]AY 15:12:00 LAPAROSCOPIC REMOVAL OR 2022-04-[address] [facility] REPOSITIONING OF PERITONEAL 14:56:00 E. DIALYSIS CATHETER ESTIMATED GFR 2022-04-26 [facility] 13:00:00 E. POC PANEL 2022-04-26 [facility] 13:00:00 E. POC GLUCOSE 2022-03-06 [facility] 16:00:00 E. SURGICAL PATHOLOGY REQUEST 2022-03-06 [facility] 15[facility]00 E. POC GLUCOSE 2022-03-06 [facility] 15:23:00 E. ANESTHESIA INTUBATION 2022-03-[address] [facility] 12:57:00 CHOLECYSTECTOMY, LAPAROSCOPIC 2022-03-06 [facility] 12:44:00 E. INSERTION, CATHETER, 2022-03-06 [facility] DIALYSIS, PERITONEAL, 12:44:00 E. LAPAROSCOPIC ESTIMATED GFR 2022-03-06 [facility] 11:50:00 E. POC PANEL 2022-03-06 [facility] 11:50:00 E. BASIC METABOLIC PANEL 2022-03-06 [facility] 11:40:00 ESTIMATED GFR 2022-03-06 [facility] 11[facility]40:00 CBC WITH PLATELET AND 2022-03-01 [facility] DIFFERENTIAL 18:18:00 HEMOGLOBIN A1C 2022-03-01 [facility] 18:18:00 PARTIAL THROMBOPLASTIN TIME 2022-03-01 [facility] (PTT) 18:18:00 PROTHROMBIN TIME WITH INR 2022-03-01 [facility] 18:18:00 REFERRAL- REQUEST/RESPONSE 2022-02-07 Doctor Unassigned, Un [facility] 05:01:00 [place] [facility] ECG PRE/POST OP 2021[facility]12-12 [facility] 20:54:02 CBC WITH PLATELET AND 2021-12-12 [facility] DIFFERENTIAL 20:25:00 HEMOGLOBIN A1C 2021-12-12 [facility] 20:25:00 TYPE AND SCREEN 2021[facility]12 [facility]:25[facility]00 PHACOEMULSIFICATION OF 2020-10-14 Aleisha [facility] CATARACT WITH INTRAOC[facility] 13:33[facility]00 [facility] GLUCOSE (AUTOMATED) 2020-10-14 Aleisha [facility] 12:38:00 [facility] POCT GLUCOSE(AGE >30DAYS) 2020-10-14 Anita Edwards [facility] 12:35:00 Medical Branch ASSIGNMENT OF BENEFITS 2020-10-12 Doctor Unassigned, [facility] 16:32:53 [facility] POCT GLUCOSE(AGE >30DAYS) 2020-04-01 Bora Skinner [facility] 12:03:00 Medical Branch ASSIGNMENT OF BENEFITS 2020-03-30 Doctor Unassigned, [facility] 16:01:28 [facility] NOTICE OF BILLING PRACTICES 2020-03-23 Doctor Unassigned, [facility] FOR MEDICARE PATIENTS 20:49:43 [place] [facility]IC[facility] 2020-03-23 Doctor Unassigned, [facility] 20:49:19 [facility] NO SHOW OR MISSED APPOINTMENT 2020-03-23 Doctor Unassigned, [facility] POLICY ACKNOWLEDGEMENT 20:48:59 [place] [facility] NOTICE OF PRIVACY PRACTICES 2020-03-23 Doctor Unassigned, [facility] 20:48:48 [facility] CONSENT/REFUSAL FOR DIAGNOSIS 2020-03-23 Doctor Unassigned, [facility] AND TREATMENT 20:48:30 [facility] ASSIGNMENT OF BENEFITS 2020-03-23 Doctor Unassigned, [facility] 20:48:19 [facility] PHYSICIAN ORDERS 2020-03-23 Doctor Unassigned, [facility] 05:01:00 [facility] Knee replacement<sup>2</sup> Mem orial [place] Fusion<sup>1</sup> [facility] Plan of Care Planned Activity Planned Date [...] INFLUENZA VACCINE (Season Ended)] Future Scheduled 2023-03-09 Influenza Vaccine (#1[facility] 00:[facility]00 [code = Influenza Medical Ce nter Vaccine (#1)] Future Scheduled 2023-01-[address] [facility] Test 15:11:15 malignant neoplasm of colon (procedure) [code = 983313592] Future Scheduled 2023-01-[address] [facility] Test 15:11:15 malignant neoplasm of colon (procedure) [code = 771457741] Future Scheduled 2023-01-[address] [facility] Test 15:11:15 malignant neoplasm of colon (procedure) [code = 390974580] Future Scheduled 2023-01-27 Hepatitis C screening [facility] Test 15:11:15 (procedure) [code = 716131708] Future Scheduled 2023-01-[address] [facility] Test 15:11:15 SCREENING [code = BREAST CANCER SCREENING] Future Scheduled 2023-01-[address] [facility] Test 15:11:15 malignant neoplasm of colon (procedure) [code = 664761945] Future Scheduled 2023-01-[address] [facility] Test 15:11:15 malignant neoplasm of colon (procedure) [code = 830134200] Future Scheduled 2023-01-27 SHINGLES VACCINES (1 Met [facility] Test 15:11:15 of 2) [code = SHINGLES VACCINES (1 of 2)] Future Scheduled 2023-01-27 65+ PNEUMOCOCCAL [facility] Test 15:11:15 VACCINE (3 - PCV) [code = 65+ PNEUMOCOCCAL VACCINE (3 - PCV)] Future Scheduled 2023-01-27 COVID-19 VACCINE (6 - [facility] Test 15:11:15 Pfizer series) [code = COVID-19 VACCINE (6 - Pfizer series)] Future Scheduled 2023-01-27 INFLUENZA VACCINE [facility] Test 15:11:15 [code = INFLUENZA VACCINE] Future Scheduled 2022-11-03 Hepatitis C screening [facility] Test 07:38:23 (procedure) [code = 124469753] Future Scheduled 2022-11-03 SHINGLES VACCINES (1 Met [facility] Test 07:38:23 of 2) [code = SHINGLES VACCINES (1 of 2)] Future Scheduled 2022-11-[address] [facility] Test 07:38:23 SCREENING [code = BREAST CANCER SCREENING] Future Scheduled 2022-11-03 COLONOSCOPY SCREENING [facility] Test 07:38:23 [code = COLONOSCOPY SCREENING] Future Scheduled 2022-11-03 65+ [facility] Test 07:38:23 VACCINE (3 - PCV) [code = 65+ PNEUMOCOCCAL VACCINE (3 - PCV)] Future Scheduled 2022-11-03 INFLUENZA VACCINE [facility] Test 07:38:23 [code = INFLUENZA VACCINE] Future Scheduled 2022-11-03 Hepatitis C screening [facility] Test 07:38:23 (procedure) [code = 423366819] Future Scheduled 2022-11-03 SHINGLES VACCINES (1 Met [facility] Test 07:38:23 of 2) [code = SHINGLES VACCINES (1 of 2)] Future Scheduled 2022-11-[address] [facility] Test 07:38:23 SCREENING [code = BREAST CANCER SCREENING] Future Scheduled 2022-11-03 COLONOSCOPY SCREENING [facility] Test 07:38:23 [code = COLONOSCOPY SCREENING] Future Scheduled 2022-11-03 65+ [facility] VACCINE (3 - PCV) [code = 65+ PNEUMOCOCCAL VACCINE (3 - PCV)] Future Scheduled 2022-11-03 INFLUENZA VACCINE [facility] Test 07:38:23 [code = INFLUENZA VACCINE] Future Scheduled 2022-10-09 Hepatitis C screening [facility] Test 14:08:24 (procedure) [code = 085014529] Future Scheduled 2022-10-09 SHINGLES VACCINES (1 Met [facility] Test 14:08:24 of 2) [code = SHINGLES VACCINES (1 of 2)] Future Scheduled 2022-10-[address] [facility] Test 14:08:24 SCREENING [code = BREAST CANCER SCREENING] Future Scheduled 2022-10-09 COLONOSCOPY SCREENING [facility] Test 14:08:24 [code = COLONOSCOPY SCREENING] Future Scheduled 2022-10-09 65+ PNEUMOCOCCAL Methodi [facility] Test 14:08:24 VACCINE (3 - PCV) [code = 65+ PNEUMOCOCCAL VACCINE (3 - PCV)] Future Scheduled 2022-10-09 INFLUENZA VACCINE [facility] Test 14:08:24 [code = INFLUENZA VACCINE] Future Scheduled 2022-10-09 Hepatitis C screening [facility] Test 14:08:24 (procedure) [code = 812893484] Future Scheduled 2022-10-09 SHINGLES VACCINES (1 Met [facility] Test 14:08:24 of 2) [code = SHINGLES VACCINES (1 of 2)] Future Scheduled 2022-10-09 BREAST CANCER [facility] Test 14:08:24 SCREENING [code = BREAST CANCER SCREENING] Future Scheduled 2022-10-09 COLONOSCOPY SCREENING [facility] Test 14:08:24 [code = COLONOSCOPY SCREENING] Future Scheduled 2022-10-09 65+ [facility]OCOCCAL [facility] Test 14:08:24 VACCINE (3 - PCV) [code = 65+ PNEUMOCOCCAL VACCINE (3 - PCV)] Future Scheduled 2022-10-09 INFLUENZA VACCINE [facility] Test 14:08:24 [code = INFLUENZA VACCINE] Future Scheduled 2022-10-09 Hepatitis C screening [facility] Test 14:08:24 (procedure) [code = 914057364] Future Scheduled 2022-10-09 SHINGLES VACCINES (1 Met [facility] Test 14:08:24 of 2) [code = SHINGLES VACCINES (1 of 2)] Future Scheduled 2022-10-[address] [facility] Test 14:08:24 SCREENING [code = BREAST CANCER SCREENING] Future Scheduled 2022-10-09 COLONOSCOPY SCREENING [facility] Test 14:08:24 [code = COLONOSCOPY SCREENING] Future Scheduled 2022-10-09 65+ PNEUMOCOCCAL Methodi [facility] Test 14:08:24 VACCINE (3 - PCV) [code = 65+ PNEUMOCOCCAL VACCINE (3 - PCV)] Future Scheduled 2022-10-09 INFLUENZA VACCINE [facility] Test 14:08:24 [code = INFLUENZA VACCINE] Future Scheduled 2022-09-25 Hepatitis C screening [facility] Test 16:30:22 (procedure) [code = 500216866] Future Scheduled 2022-09-25 SHINGLES VACCINES (1 Met [facility] Test 16:30:22 of 2) [code = SHINGLES VACCINES (1 of 2)] Future Scheduled 2022-09-25 BREAST CANCER [facility] Test 16:30:22 SCREENING [code = BREAST CANCER SCREENING] Future Scheduled 2022-09-25 COLONOSCOPY SCREENING [facility] Test 16:30:22 [code = COLONOSCOPY SCREENING] Future Scheduled 2022-09-25 65+ P[facility]UMOCOCCAL [facility] Test 16:30:22 VACCINE (3 - PCV) [code = 65+ PNEUMOCOCCAL VACCINE (3 - PCV)] Future Scheduled 2022-09-25 INFLUENZA VACCINE [facility] Test 16:30:22 [code = INFLUENZA VACCINE] [...] Center DEPRESSION SCREENING (12+)] Future Scheduled 2022-07-[address] [facility] Test 00:00:00 (12+) [code = Medical Center DEPRESSION SCREENING (12+)] Future Scheduled 2022-07-09 FALLS RISK SCREENING [facility] Test 00:00:00 [code = FALLS RISK Medical C enter SCREENING] Future Scheduled 2022-07-09 FALLS RISK SCREENING [facility] [...] SCREENING] Future Scheduled 2022-06-22 Hepatitis C screening [facility] Test 00:46:40 (procedure) [code = 084113385] Future Scheduled 2022-06-22 SHINGLES VACCINES (1 Met [facility] Test 00:46:40 of 2) [code = SHINGLES VACCINES (1 of 2)] Future Scheduled 2022-06-22 BREAST CANCER [facility] Test 00:46:40 SCREENING [code = BREAST CANCER SCREENING] Future Scheduled 2022-06-[address] [facility] Test 00:46:40 [code = COLONOSCOPY SCREENING] Future Scheduled 2022-06-22 65+ PNEUMOCOCCAL [facility] Test 00:46:40 VACCINE (3 - PCV) [code = 65+ PNEUMOCOCCAL VACCINE (3 - PCV)] Future Scheduled 2022-06-22 INFLUENZA VACCINE [facility] Test 00:46:40 [code = INFLUENZA VACCINE] Future Scheduled 2022-06-22 Hepatitis C screening [facility] Test 00:46:40 (procedure) [code = 214026599] Future Scheduled 2022-06-22 SHINGLES VACCINES (1 Met [facility] Test 00:46:40 of 2) [code = SHINGLES VACCINES (1 of 2)] Future Scheduled 2022-06-22 BREAST CANCER [facility] Test 00:46:40 SCREENING [code = BREAST CANCER SCREENING] Future Scheduled 2022-06-[address] [facility] Test 00:46:40 [code = COLONOSCOPY SCREENING] Future Scheduled 2022-06-22 65+ P[facility]OCOCCAL [facility] Test 00:46:40 VACCINE (3 - PCV) [code = 65+ PNEUMOCOCCAL VACCINE (3 - PCV)] Future Scheduled 2022-06-22 INFLUENZA VACCINE Method [facility] Test 00:46:40 [code = INFLUENZA VACCINE] Future Scheduled 2022-06-22 Hepatitis C screening [facility] Test 00:46:40 (procedure) [code = 034691002] Future Scheduled 2022-06-22 SHINGLES VACCINES (1 Met [facility] Test 00:46:40 of 2) [code = SHINGLES VACCINES (1 of 2)] Future Scheduled 2022-06-22 BREAST CANCER [facility] Test 00:46:40 SCREENING [code = BREAST CANCER SCREENING] Future Scheduled 2022-06-22 COLONOSCOPY SCREENING [facility] Test 00:46:40 [code = COLONOSCOPY SCREENING] Future Scheduled 2022-06-22 65+ [facility]:46[facility] VACCINE (3 - PCV) [code = 65+ PNEUMOCOCCAL VACCINE (3 - PCV)] Future Scheduled 2022-06-22 INFLUENZA VACCINE [facility] Test 00:46:40 [code = INFLUENZA VACCINE] Future Scheduled 2022-06-11 HEPATITIS B VACCINES Met [facility] Test 01:18:56 (1 of 3 - 3-dose series) [code = HEPATITIS B VACCINES (1 of 3 - 3-dose series)] Future Scheduled 2022-06-11 Hepatitis C screening [facility] Test 01:18:56 (procedure) [code = 900579845] Future Scheduled 2022-06-11 SHINGLES VACCINES (1 Met [facility] Test 01:18:56 of 2) [code = SHINGLES VACCINES (1 of 2)] Future Scheduled 2022-06-11 BREAST CANCER [facility] Test 01:18:56 SCREENING [code = BREAST CANCER SCREENING] Future Scheduled 2022-06-11 COLONOSCOPY SCREENING [facility] Test 01:18:56 [code = COLONOSCOPY SCREENING] Future Scheduled 2022-06-11 65+ P[facility]UMOCOCCAL [facility] Test 01:18:56 VACCINE (3 - PCV) [code = 65+ PNEUMOCOCCAL VACCINE (3 - PCV)] Future Scheduled 2022-06-11 INFLUENZA VACCINE [facility] Test 01:18:56 [code = INFLUENZA [facility] [code = COVID-[address] VACCINE (#1)] Future Scheduled 1956 COVID-19 [...] Medica l Center colon (procedure) [code = 129971940] Future Scheduled [address] [facility] 00:[facility]:00 malignant neoplasm of Medica l Center colon (procedure) [code = 849570735] Future Scheduled 1956 [facility]oidoscopy [facility] Future Scheduled 1956 [facility] Future Scheduled [address] [facility] 00:00:00 malignant neoplasm of Medica l Center breast (procedure) [code = 922779738] Future Scheduled [address] [facility] 00:00:00 (combo) [code = CT Medical C enter Colonography (combo)] Future Scheduled [address] [facility] 00:00:00 malignant neoplasm of [facility]ica l Center colon (procedure) [code = 610933934] Future Scheduled [address] [facility] 00:00:00 malignant neoplasm of [facility]ica [facility] Center colon (procedure) [code = 358961325] Future Scheduled 1956 DXA SCAN [code = DXA [facility] 00:00:00 SCAN] [facility] Future Scheduled [address] [facility] 00:00:00 malignant neoplasm of Medica l Center colon (procedure) [code = 026524123] Future Scheduled [address] [facility] 00:00:00 malignant neoplasm of Medica l Center colon (procedure) [code = 344065883] Future Scheduled 1956 [facility]oscopy [facility]] [facility] Future Scheduled [address] [facility] 00:00:00 malignant neoplasm of Medica l Center breast (procedure) [code = 151295350] Future Scheduled [address] [facility] 00:00:00 (combo) [code = CT Medical C enter Colonography (combo)] Future Scheduled [address] [facility] 00:00:00 malignant neoplasm of Medica l Center colon (procedure) [code = 919841092] Future Scheduled [address] [facility] 00:00:00 malignant neoplasm of Medica l Center colon (procedure) [code = 665438091] Future Scheduled 1956 DXA SCAN [code = DXA [facility] 00:00:00 SCAN] [facility] Future Scheduled [address] [facility] 00:00:00 malignant neoplasm of Medica l Center colon (procedure) [code = 114175958] Future Scheduled [address] [facility] 00:00:00 malignant neoplasm of Medica l Center colon (procedure) [code = 030764898] Future Scheduled 1956 [facility]oscopy [facility]] [facility] Future Scheduled [address] [facility] 00:00:00 malignant neoplasm of [facility]ica l Center breast (procedure) [code = 858338533] Future Scheduled [address] [facility] 00:00:00 (combo) [code = CT Medical C enter Colonography (combo)] Future Scheduled [address] [facility] 00:00:00 malignant neoplasm of [facility]ica l Center colon (procedure) [code = 599683706] Future Scheduled [address] [facility] 00:00:00 malignant neoplasm of [facility]ica [facility] Center colon (procedure) [code = 937500188] Future Scheduled 1956 DXA SCAN [code = DXA [facility] 00:00:00 SCAN] [facility] Future Scheduled [address] [facility] 00:00:00 malignant neoplasm of Medica l Center colon (procedure) [code = 632049280] Future Scheduled [address] [facility] 00:00:00 malignant neoplasm of Medica l Center colon (procedure) [code = 546548103] Future Scheduled 1956 [facility] Future Scheduled [address] [facility] 00:00:00 malignant neoplasm of Medica l Center breast (procedure) [code = 221787318] Future Scheduled [address] [facility] 00:00:00 (combo) [code = CT Medical C enter Colonography (combo)] Future Scheduled [address] [facility] 00:00:00 malignant neoplasm of [facility]ica l Center colon (procedure) [code = 956132139] Future Scheduled [address] [facility] 00:00:00 malignant neoplasm of Medica l Center colon (procedure) [code = 252909216] Future Scheduled 1956 DXA SCAN [code = DXA [facility] 00:00:00 SCAN] [facility] Future Scheduled [address] [facility] 00:00:00 malignant neoplasm of Medica l Center colon (procedure) [code = 945806911] Future Scheduled [address] [facility] 00:00:00 malignant neoplasm of [facility]ica l Center colon (procedure) [code = 463394090] Future Scheduled 1956 [facility]oscopy [facility] Future Scheduled [address] [facility] 00:00:00 malignant neoplasm of [facility]ica l Center breast (procedure) [code = 019184881] Future Scheduled [address] [facility] 00:00:00 malignant neoplasm of [facility] Center breast (procedure) [code = 145386810] Future Scheduled [address] [facility] 00:00:00 (combo) [code = CT Medical C enter Colonography (combo)] Future Scheduled [address] [facility] 00:00:00 malignant neoplasm of [facility]ica l Center colon (procedure) [code = 435581243] Future Scheduled [address] [facility] 00:00:00 malignant neoplasm of [facility]ica l Center colon (procedure) [code = 095517671] Future Scheduled 1956 DXA SCAN [code = DXA [facility] 00:00:00 SCAN] [facility] Future Scheduled [address] [facility] 00:00:00 malignant neoplasm of Medica l Center colon (procedure) [code = 751687603] Future Scheduled [address] [facility] 00:00:00 malignant neoplasm of [facility]ica l Center colon (procedure) [code = 583656952] Future Scheduled 1956 [facility] Future Scheduled [address] [facility] 00:00:00 (combo) [code = CT Medical C enter Colonography (combo)] Future Scheduled [address] [facility] 00:00:00 malignant neoplasm of Medica l Center breast (procedure) [code = 064255497] Future Scheduled [address] [facility] 00:00:00 (combo) [code = CT Medical C enter Colonography (combo)] Future Scheduled [address] [facility] 00:00:00 malignant neoplasm of [facility]ica l Center colon (procedure) [code = 891607723] Future Scheduled [address] [facility] 00:00:00 malignant neoplasm of [facility]ica l Center colon (procedure) [code = 422294673] Future Scheduled [address] [facility] 00:00:00 malignant neoplasm of Medica l Center colon (procedure) [code = 331251791] Future Scheduled 1956 DXA SCAN [code = DXA [facility] 00:00:00 SCAN] [facility] Future Scheduled [address] [facility] 00:00:00 malignant neoplasm of Medica l Center colon (procedure) [code = 778865030] Future Scheduled [address] [facility] 00:00:00 malignant neoplasm of [facility]ica l Center colon (procedure) [code = 013186718] Future Scheduled 1956 [facility]oidoscopy [facility] Cent[facility] Future Scheduled [address] [facility] 00:00:00 malignant neoplasm of Medica l Center colon (procedure) [code = 136991710] Future Scheduled [address] [facility] 00:00:00 malignant neoplasm of [facility]ica [facility] Center breast (procedure) [code = 593660663] Future Scheduled [address] [facility] 00:00:00 (combo) [code = CT Medical C enter Colonography (combo)] Future Scheduled [address] [facility] 00:00:00 malignant neoplasm of Medica l Center colon (procedure) [code = 149173814] Future Scheduled [address] [facility] 00:00:00 malignant neoplasm of [facility]ica l Center colon (procedure) [code = 533474959] Future Scheduled 1956 DXA SCAN [code = DXA [facility] 00:00:00 SCAN] [facility] Future Scheduled 1956 DXA SCAN [code = DXA [facility] 00:00:00 SCAN] [facility] Future Scheduled [address] [facility] 00:00:00 malignant neoplasm of Medica l Center colon (procedure) [code = 671182597] Future Scheduled [address] [facility] 00:00:00 malignant neoplasm of [facility]ica l Center colon (procedure) [code = 185073375] Future Scheduled 1956 [facility]oidoscopy [facility] Future Scheduled [address] [facility] 00:00:00 malignant neoplasm of Medica l Center colon (procedure) [code = 847817954] Future Scheduled [address] [facility] 00:00:00 malignant neoplasm of Medica l Center breast (procedure) [code = 407267250] Future Scheduled [address] [facility] 00:00:00 (combo) [code = CT Medical C enter Colonography (combo)] Future Scheduled [address] [facility] 00:00:00 malignant neoplasm of Medica l Center colon (procedure) [code = 827272717] Future Scheduled [address] [facility] 00:00:00 malignant neoplasm of Medica l Center colon (procedure) [code = 522551471] Future Scheduled 1956 DXA SCAN [code = DXA [facility] 00:00:00 SCAN] [facility] Future Scheduled [address] [facility] 00:00:00 malignant neoplasm of Medica l Center colon (procedure) [code = 248963082] Future Scheduled [address] [facility] 00:00:00 malignant neoplasm of [facility]ica l Center colon (procedure) [code = 429851416] Future Scheduled 1956 [facility]oidoscopy [facility]] [facility] Future Scheduled [address] [facility] 00:00:00 malignant neoplasm of Medica l Center breast (procedure) [code = 482713814] Future Scheduled [address] [facility] 00:00:00 (combo) [code = CT Medical C enter Colonography (combo)] Future Scheduled [address] [facility] 00:00:00 malignant neoplasm of Medica l Center colon (procedure) [code = 948259883] Future Scheduled [address] [facility] 00:00:00 malignant neoplasm of [facility]ica l Center colon (procedure) [code = 540512530] Future Scheduled 1956 DXA SCAN [code = DXA [facility] Test 00:00:00 SCAN] [facility] Future Scheduled [address] [facility] 00:00:00 malignant neoplasm of Medica l Center colon (procedure) [code = 109672362] Encounters Start End Encounter Admission Attending Care Care Encounter Source Date/Time Date/Time Type Type Clinicians Facility Department ID 2022-11-13 Outpatient 3 [id number] [facility] [id number] [facility] 15:05:25 [facility] 2022-11-08 Outpatient 3 [id number] [facility] CRD [id number] [facility] 09:30:23 [facility] [place] [facility] 2022-11-07 Outpatient 3 [id number] [facility] REF [id number] [facility] 21:38:12 [facility] [place] 2022-08-14 [facility] [id number] Common 07:43:01 [facility] [id number] [facility] 2022-08-04 Outpatient [facility] [id number] Common 13:26:01 Dann [id number] [facility] 2022-08-03 Outpatient Hernandez, STLMLC STLMLC [id number] Common 14:53:01 Dann [facility] 2022-07-25 Outpatient Hernandez, STLMLC STLMLC [id number] Common 15:59:02 Dann [facility] 2022-07-24 Outpatient Hernandez, STLMLC STLMLC [id number] Common 07:39:00 Dann [id number] [facility] 2022-07-19 Outpatient Hernandez, STLMLC STLMLC [id number] Common 08:46:01 Dann [id number] [facility] 2022-07-15 Inpatient AR Schmid, HCACL ADMI [id number] [facility] 11:05:[address] [place], [place] [id number] 2022-06-20 [facility] [id number] [facility] 00[facility]00 [facility] 2022-06-20 [facility] [id number] [facility] 00:[facility]:00 [facility] 2022-06-15 Outpatient Hernandez, STLMLC STLMLC [id number] Common 08:26:02 Dann [id number] [facility] 2022-05-25 Outpatient Hernandez, STLMLC STLMLC [id number] Common 11:25:01 Dann [facility] 2022-02-27 Outpatient Hernandez, STLMLC STLMLC [id number] Common 10:42:02 Dann [facility] 2022-02-03 Outpatient Myrick, STLMLC STLMLC [id number] Common 12:12:00 Avnee [facility] 2022-01-31 Outpatient Myrick, STLMLC STLMLC [id number] Common 12:38:00 Avnee [facility] 2021-12-02 Outpatient Myrick, STLMLC STLMLC [id number] Common 15:52:01 Avnee [facility] 2021-12-01 Outpatient Myrick, STLMLC STLMLC [id number] Common 10:24:03 Avnee [facility] 2021-11-21 Outpatient Myrick, STLMLC STLMLC [id number] Common 10:05:12 Avnee [facility] 2021-11-08 Outpatient Myrick, STLMLC STLMLC [id number] Common 08:37:01 Avnee [facility] 2021-11-04 Outpatient Myrick, STLMLC STLMLC [id number] Common 14:15:04 Avnee [facility] 2021-10-31 Outpatient Alex[facility] [id number] Common 09:40:02 [facility] 2021-08-04 Outpatient 3 [id number] ENCPL REF [id number] [facility] 13:44:15 [facility] [place] 2021-08-04 Outpatient 3 [id number] ENCPL REF [id number] [facility] 13:21:20 [facility] [place] 2021-05-08 Outpatient Estevan MORAES [facility] OPH [id number] Univers 08:53:46 FAUSTO [facility] 2021-05-06 Outpatient Estevan MORAES [facility] ECTOR [id number] Univers 18:47:42 FAUSTO [facility] 2022-12-26 2022-12-26 Transition JENNY Yang 1.2.840.114 [id number] Univers 00:00:00 00:00:00 of Care Ivan CHASE 350.1.13.10 [facility] [place] 4.2.7.2.686 Jonelle aleman [id number] [address] 2022-12-14 2022-12-22 Inpatient Aguila URBAN [facility] NIMCO [id number] Univers 17:38:00 17:36:00 [place] adam [facility] 2022-12-14 2022-12-22 [facility] Sarahy Durán [facility] 1.2.8 40.114 [id number] Univers 17:38:00 17:36:00 Encounter LiyaElijahTavomayuri RIOS 350.1.13.10 ity of [facility] 4.2.7.2.686 [facility] [id number] Medical 080 Branch 2022-12-21 2022-12-21 Surgery [facility] 1.2.840.114 [id number] Univers 14:20:00 15:56:00 Leyla RIOS 350.1.13.10 [facility] [place]ICAL [id number] [facility] 020 Branch 2022-11-08 2022-11-08 Transition JENNY Ruiz 1.2.840.114 [id number] Univers 00:00:00 00:00:00 of Danish CHASE 350.1.13.10 it y of [place] [id number] [facility] [address] 2022-11-04 2022-11-07 Outpatient X [facility] NIMCO [id number] Univers 13:24:00 17:38:00 [place] adam [facility] 2022-11-04 2022-11-07 Emergency Katherin Persaud [facility] 1.2.840 .114 [id number] Univers 13:24:00 17:38:00 [place] 350.1.13.10 [facility] 4.2.7.2.686 [facility] [phone] Medi jose 081 Branch 2022-08-15 2022-08-15 OFFICE STLMLC STLMLC [id number] Co mmon 00:00:00 00:00:00 VISIT Spirit ESTAB PT - CHI LEVEL 4 [facility] 2022-07-26 2022-07-26 (TEL) STLMLC STLMLC [id number] Co mmon 00:00:00 00:00:00 Spirit - CHI [facility] 2022-07-13 2022-07-13 (TEL) STLMLC STLMLC [id number] Co mmon 00:00:00 00:00:00 Spirit - CHI [facility] 2022-06-22 2022-07-07 Inpatient UR Adonis Gaytan [facility] MEDI.01 G001 [id number] [facility] 09:01:00 17:11:00 00 [facility] 2022-06-08 2022-06-08 (TEL) STLMLC STLMLC [id number] Co mmon 00:00:00 00:00:00 [facility] 2022-05-31 2022-05-31 (TEL) STLMLC STLMLC [id number] Co mmon 00:00:00 00:00:00 [facility] 2022-04-26 2022-04-26 [facility], 1.2.840.1 [id number] 21 [id number] Methodi 06:55:00 12:55:00 Encounter Jose Keller 26748.1.[address] 3.430.2.7 Hospit a .3.386750 l .8 2022-04-26 2022-04-26 [facility], 1.2.840.1 [id number] Methodi 06:55:00 12:55:00 Encounter Jose Keller 99874.1.[address] 3.430.2.7 Hospit a .3.450002 l .8 2022-04-26 2022-04-26 Anesthesia Reji Waldrop 1.2.840.1 1 [id number] Methodi 09:56:00 11:03:00 Event Ce Knutson 23978.1.[address] 3.430.2.7 Hospit a .3.954241 l .8 2022-04-26 2022-04-26 Anesthesia Reji Waldrop 1.2.840.1 1 [id number] Methodi 09:56:00 11:03:00 Event Ce Knutson 64014.1.[address] 3.430.2.7 Hospit a .3.244647 l .8 2022-04-26 2022-04-26 Surgery [facility], 1.2.840.1 [id number] 374 [id number] Methodi 09:15:00 10:45:00 Jose E. 73456.1.1 677 s t 3.430.2.7 Hospit a .3.077868 l .8 2022-04-26 2022-04-26 Surgery [facility], 1.2.840.1 [id number] 836 [id number] Methodi 09:15:00 10:45:00 Jose E. 93990.1.1 677 s t 3.430.2.7 Hospit a .3.634212 l .8 2022-04-26 2022-04-26 Travel 1.2.840.1 1.2.956.755 6299 247299 Methodi 00:00:00 00:00:[address] 3.430.2.7 0.2.7.3.698 Ho spita .3.539593 084.8 l .8 2022-04-26 2022-04-26 Travel 1.2.840.1 1.2.217.083 2976 970663 Methodi 00:00:00 00:00:[address] 3.430.2.7 0.2.7.3.698 Ho spita .3.050597 084.8 l .8 2022-04-24 2022-04-24 Travel 1.2.840.1 1.2.756.926 6531 248310 Methodi 00:00:00 00:00:[address] 3.430.2.7 0.2.7.3.698 Ho spita .3.308453 084.8 l .8 2022-04-24 2022-04-24 Travel 1.2.840.1 1.2.902.559 4321 762246 Methodi 00:00:00 00:00:[address] 3.430.2.7 0.2.7.3.698 Ho spita .3.423140 084.8 l .8 2022-04-21 2022-04-21 Prep for Oppermann, 1.2.840.1 [id number] 21 [id number] Methodi 00:00:00 00:00:00 Surgery Jose E. 50627.1.1 940 s t 3.430.2.7 Hospit a .3.147318 l .8 2022-04-21 2022-04-21 Orders Oppermann, 1.2.840.1 [id number] 843 [id number] Methodi 00:00:00 00:00:00 Only Jose E. 66272.1.1 613 s t 3.430.2.7 Hospit a .3.707049 l .8 2022-04-21 2022-04-21 Prep for Oppermann, 1.2.840.1 [id number] 21 [id number] Methodi 00:00:00 00:00:00 Surgery Jose E. 78387.1.1 940 s t 3.430.2.7 Hospit a .3.638537 l .8 2022-04-21 2022-04-21 Orders Oppermann, 1.2.840.1 [id number] 051 [id number] Methodi 00:00:00 00:00:00 Only Jose E. 40766.1.1 613 s t 3.430.2.7 Hospit a .3.138591 l .8 2022-04-05 2022-04-05 Outpatient Estevan IVERSON, [facility] [id number] Univers 15:00:00 15:00:00 CARSON adam [facility] 2022-03-21 2022-03-21 Office Oppermann, 1.2.840.1 [id number] 843 [id number] Methodi 11:30:00 12:00:24 Visit Jose E. 29942.1.1 407 s t 3.430.2.7 Hospit a .3.321199 l .8 2022-03-21 2022-03-21 Office Oppermann, 1.2.840.1 [id number] 342 0381726 Methodi 11:30:00 12:00:24 Visit Jose E. 01764.1.1 407 s t 3.430.2.7 Hospit a .3.138404 l .8 2022-03-21 2022-03-21 Travel 1.2.840.1 1.2.643.704 9518 339066 Methodi 00:00:00 00:00:[address] 3.430.2.7 0.2.7.3.698 Ho spita .3.081933 084.8 l .8 2022-03-21 2022-03-21 Travel 1.2.840.1 1.2.326.468 1833 101207 Methodi 00:00:00 00:00:[address] 3.430.2.7 0.2.7.3.698 Ho spita .3.008668 084.8 l .8 2022-03-15 2022-03-15 Outpatient Estevan IVERSON [facility] [id number] Univers 10:00:00 10:00:00 CARSON adam [facility] 2022-03-14 2022-03-14 (TEL) STLMLC STLMLC [id number] Co mmon 00:00:00 00:00:00 [facility] 2022-03-06 2022-03-06 [facility], 1.2.840.1 [id number] Methodi 05:46:00 12:05:00 Encounter Jose Keller 26041.1.[address] 3.430.2.7 Hospit a .3.684736 l .8 2022-03-06 2022-03-06 [facility], 1.2.840.1 [id number] 21 [id number] Methodi 05:46:00 12:05:00 Encounter Jose Keller 44709.1.[address] 3.430.2.7 Hospit a .3.350529 l .8 2022-03-06 2022-03-06 Anesthesia Jory Santoro 1.2.840. 1 [id number] Methodi 07:44:00 09:46:00 Event Corrina Cavanaugh 62331.1.[address] 3.430.2.7 Hospit a .3.065139 l .8 2022-03-06 2022-03-06 Anesthesia Jory Santoro 1.2.840. 1 [id number] Methodi 07:44:00 09:46:00 Event Corrina Cavanaugh 45538.1.[address] 3.430.2.7 Hospit a .3.301242 l .8 2022-03-06 2022-03-06 Surgery Oppermann, 1.2.840.1 [id number] 884 [id number] Methodi 07:45:00 09:05:00 Jose E. 14170.1.1 269 s t 3.430.2.7 Hospit a .3.124936 l .8 2022-03-06 2022-03-06 Surgery Oppermann, 1.2.840.1 [id number] 853 0143811 Methodi 07:45:00 09:05:00 Jose E. 95908.1.1 269 s t 3.430.2.7 Hospit a .3.726826 l .8 2022-03-01 2022-03-01 [facility] 1.2.840.1 [id number] [id number] Methodi 13:00:00 14:00:00 ion Jose E. 83572.1.1 998 s t Testing 3.430.2.7 Hospit a .3.438894 l .8 2022-03-01 2022-03-01 Pre-Admiss Oppermann, 1.2.840.1 887135356 8318267424 Methodi 13:00:00 14:00:00 ion Jose E. 27469.1.1 998 s t Testing 3.430.2.7 Hospit a .3.312431 l .8 2022-03-01 2022-03-01 Travel 1.2.840.1 1.2.087.795 8924 297911 Methodi 00:00:00 00:00:[address] 3.430.2.7 0.2.7.3.698 Ho spita .3.689114 084.8 l .8 2022-03-01 2022-03-01 Travel 1.2.840.1 1.2.201.657 7755 682364 Methodi 00:00:00 00:00:[address] 3.430.2.7 0.2.7.3.698 Ho spita .3.970243 084.8 l .8 2022-02-27 2022-02-27 SUB ANNUAL [facility] [id number] Common 00:00:00 00:00:00 MCR Spirit WELLNESS - CHI VISIT [facility] 2022-02-27 2022-02-27 OFFICE [facility] [id number] Co mmon 00:00:00 00:00:00 VISIT Spirit ESTAB PT - CHI LEVEL 4 [facility] 2022-02-27 2022-02-27 (TEL) [facility] [id number] Co mmon 00:00:00 00:00:00 Spirit - CHI [facility] 2022-02-07 2022-02-07 Orders Doctor ROSELIA 1.2.840.114 [id number] Univers 00:00:00 00:00:00 Only Unassigned, CINDY 350.1.13.10 ity of [place] [facility] 4.2.7.2.686 [place] as [phone] [place] [address] [address] 2022-02-02 2022-02-02 (TEL) [facility] [id number] Co mmon 00:00:00 00:00:00 Spirit - CHI [facility] 2022-01-31 2022-01-31 Travel 1.2.840.1 1.2.056.862 3460 792046 Methodi 00:00:00 00:00:[address] 3.430.2.7 0.2.7.3.698 Ho spita .3.693653 084.8 l .8 2022-01-31 2022-01-31 Travel 1.2.840.1 1.2.637.104 2881 422459 Methodi 00:00:00 00:00:[address] 3.430.2.7 0.2.7.3.698 Ho spita .3.507439 084.8 l .8 2022-01-27 2022-01-27 (TEL) STLMLC STLMLC [id number] Co mmon 00:00:00 00:00:00 [facility] 2021-12-30 2021-12-30 (TEL) STLMLC STLMLC [id number] Co mmon 00:00:00 00:00:00 [facility] 2021-12-19 2021-12-19 (TEL) STLMLC STLMLC [id number] Co mmon 00:00:00 00:00:00 [facility] 2021-12-13 2021-12-13 (TEL) STLMLC STLMLC [id number] Co mmon 00:00:00 00:00:00 [facility] 2021-12-12 2021-12-12 Pre-Admiss Eugenio, 1.2.840.1 [id number] Methodi 15:00:00 16:00:00 isabelle Keller 76414.1.1 317 s t Testing 3.430.2.7 Hospit a .3.098324 l .8 2021-12-12 2021-12-12 Travel 1.2.840.1 1.2.824.005 3516 062246 Methodi 00:00:00 00:00:[address] 3.430.2.7 0.2.7.3.698 Ho spita .3.548594 084.8 l .8 2021-12-08 2021-12-08 (TEL) STLMLC STLMLC [id number] Co mmon 00:00:00 00:00:00 [facility] 2021-12-01 2021-12-01 (TEL) STLMLC STLMLC [id number] Co mmon 00:00:00 00:00:00 [facility] 2021-11-30 2021-11-30 (TEL) STLMLC STLMLC [id number] Co mmon 00:00:00 00:00:00 [facility] 2021-11-25 2021-11-25 (TEL) STLMLC STLMLC [id number] Co mmon 00:00:00 00:00:00 [facility] 2021-11-21 2021-11-21 (TEL) STLMLC STLMLC [id number] Co mmon 00:00:00 00:00:00 [facility] 2021-11-18 2021-11-18 (TEL) STLMLC STLMLC [id number] Co mmon 00:00:00 00:00:00 [facility] 2021-11-15 2021-11-15 Office Eugenio, 1.2.840.1 [id number] 207 [id number] Methodi 13:00:00 14:01:57 Visit Jose Keller 10172.1.1 465 s t 3.430.2.7 Hospit a .3.276374 l .8 2021-11-15 2021-11-15 (TEL) STLC STLMLC [id number] Co mmon 00:00:00 00:00:00 [facility] 2021-11-15 2021-11-15 Prep for Allen, 1.2.840.1 [id number] 99440 78227 Methodi 00:00:00 00:00:00 Surgery Funmi P [address]1981.1.[address] 3.430.2.7 Hospit a .3.971982 l .8 2021-11-15 2021-11-15 Travel 1.2.840.1 1.2.348.826 0962 738282 Methodi 00:00:00 00:00:[address] 3.430.2.7 0.2.7.3.698 Ho spita .3.968349 084.8 l .8 2021-11-14 2021-11-14 (TEL) STLMLC STLMLC [id number] Co mmon 00:00:00 00:00:00 [facility] 2021-11-04 2021-11-04 (TEL) STLMLC STLMLC [id number] Co mmon 00:00:00 00:00:00 [facility] 2021-10-31 2021-10-31 (TEL) STLMLC STLMLC [id number] Co mmon 00:00:00 00:00:00 [facility] 2021-10-20 2021-10-20 Telephone Stephane, 1.2.840.1 707611473 2100 315292 Methodi 00:00:00 00:00:[address] 3.430.2.7 Hospit a .3.535596 l .8 2021-10-05 2021-10-05 Documentat Chace, 1.2.840.1 [id number] 21 [id number] Methodi 00:00:00 00:00:[address]iz [address]551.1.[address] 3.430.2.7 Hospit a .3.823321 l .8 2021-09-22 2021-09-22 Travel 1.2.840.1 1.2.671.500 4389 897542 Methodi 00:00:00 00:00:[address] 3.430.2.7 0.2.7.3.698 Ho spita .3.249070 084.8 l .8 2021-08-23 2021-08-23 Ambulatory nullFlavo MNA [id number] [id number] Memoria 14:15:00 14:15:00 Pre-Reg r Neurology 06 l [facility] 2021-08-23 2021-08-23 Ambulatory nullFlavo MNA [id number] [id number] Memoria 14:15:00 14:15:00 Pre-Reg r Neurology 06 l [facility] 2021-08-23 2021-08-23 Outpatient MHIE MHIE [id number] Memoria 08:15:00 08:15:00 06 l [place] 2021-08-23 2021-08-23 Outpatient [facility] [id number] 08:15:00 08:15:00 Farhan Herminia Don 2021-07-12 2021-07-12 Ambulatory nullFlavo MNA [id number] Memoria 14:15:00 14:15:00 Pre-Reg r Neurology 05 josy Saucedo 2021-07-12 2021-07-12 Ambulatory nullFlavo MNA [id number] Memoria 14:15:00 14:15:00 Pre-Reg r Neurology 05 josy Saucedo 2021-07-12 2021-07-12 Outpatient Anand [facility] [id number] 08:15:00 08:15:00 Farhan Mela Don 2021-06-14 2021-06-14 Telephone Courtney, 1.2.840.1 [id number] Methodi 00:00:00 00:00:[address] 3.430.2.7 Hospit a .3.854997 l .8 2021-06-01 2021-06-01 Outpatient MHIE STEFANI [id number] 465 Memoria 09:00:00 09:00:00 05 josy Saucedo 2021-05-19 2021-05-19 Ambulatory nullFlavo MNA [id number] Memoria 14:15:00 14:15:00 Pre-Reg r Neurology 04 josy Saucedo 2021-05-19 2021-05-19 Ambulatory nullFlavo MNA [id number] Memoria 14:15:00 14:15:00 Pre-Reg r Neurology 04 josy Saucedo 2021-05-19 2021-05-19 Outpatient Anand [facility] [id number] 08:15:00 08:15:00 Farhan Mehdi Don 2021-05-10 2021-05-10 Outpatient MHIE STEFANI [id number] Memoria 15:45:00 15:45:00 04 josy Saucedo 2021-03-31 2021-03-31 Ambulatory nullFlavo MNA [id number] Memoria 13:15:00 13:15:00 Pre-Reg r Neurology 03 josy Saucedo 2021-03-31 2021-03-31 Ambulatory nullFlavo MNA [id number] [id number] Memoria 13:15:00 13:15:00 Pre-Reg r Neurology 03 l Estelle Saucedo 2021-03-31 2021-03-31 Outpatient MHIE MHIE [id number] Memoria 08:15:00 08:15:00 03 josy Saucedo 2021-03-31 2021-03-[address] [facility] [id number] 08:15:00 08:15:00 Farhan 03 Arian 2021-02-23 2021-02-24 Outpatient nullFlavo MNA [id number] Memoria 20:00:00 04:59:59 r Neurology 02 l Estelle Saucedo 2021-02-23 2021-02-24 Outpatient nullFlavo MNA [id number] Memoria 20:00:00 04:59:59 r Neurology 02 l Estelle Saucedo 2021-02-23 2021-02-23 Outpatient Anand [facility] [id number] 15:00:00 23:59:59 Farhan 02 Arian 2021-02-23 2021-02-23 Outpatient MHIE MHIE [id number] Memoria 15:00:00 15:00:00 02 josy [place] 2020-10-14 2020-10-14 Surgery [facility] 1.2.840.114 [id number] 08:34:00 09:10:00 Greg 350.1.13.10 Keegan 4.2.7.2.686 Surgical [id number] [place] 020 2020-10-14 2020-10-14 [facility] 1.2.840.114 [id number] [facility] 08:34:00 09:10:00 Fausto Rios 350.1.13.10 i ty of [place]2.[place].2.[place] [id number] [facility] 020 Branch 2020-10-12 2020-10-12 Customer Order Clerk Juanpablo Montes [facility] 1.2.840.114 [id number] 11:40:06 11:55:06 Visit Lab Main Greg 350.1.13.10 [place] 4.2.7.2.686 Professio [id number] [address] 2020-10-12 2020-10-12 Customer Order Clerk Jyoti, [facility] Lab Main [facility] 1.2.8 40.114 [id number] [facility] 11:40:06 11:55:06 Visit Fausto Moraes 350.1.1 3.10 ity of [place]2.7.2.[place] [facility] [id number] Fl dical [address] 2020-10-12 2020-10-12 Laboratory Only, [facility] 1.2.840.114 [id number] 11:34:36 11:49:36 Only Test [place] 350.1.13.10 [place] 4.2.7.2.686 [place] [id number] [facility] 2020-10-12 2020-10-12 Laboratory Only, [facility] Test [facility] 1.2.840. 114 [id number] [facility] 11:34:36 11:49:36 Only Fausto Moraes 350.1.1 3.10 ity of [place] 4.2.[place].2.686 [place] [id number] [address] 2020-10-12 2020-10-12 Outpatient R ALEISHA [facility] [id number] [facility] 10:45:00 10:45:00 FAUSTO adam [facility] 2020-10-12 2020-10-12 Orders Doctor VELOZ 1.2.840.114 [id number] 00:00:00 00:00:00 Only Unassigned, CINDY 350.1.13.10 [place] [facility] 4.2.7.2.686 [id number] [facility] 2020-10-12 2020-10-12 Orders Doctor VELOZ 1.2.840.114 [id number] Univers 00:00:00 00:00:00 Only Unassigned, CINDY 350.1.13.10 ity of [place] [facility] 4.2.7.2.686 [place] as [id number] [address] 2020-05-13 2020-05-14 Outpatient SUSAN WHITE [facility] 021 [id number] [place] 00:00:00 00:00:[address] 2020-05-11 2020-05-11 Outpatient [facility] [id number] [place] 00:00:00 00:00:00 IMRAN [address] 2020-04-01 2020-04-01 [facility] 1.2.840.114 [id number] 06:36:00 10:10:00 Encounter Fausto Rios 350.1.13.10 [place] 4.2.7.2.686 Surgical [id number] [place] [address] 2020-04-01 2020-04-01 [facility] 1.2.840.114 [id number] [facility] 06:36:00 10:10:00 Encounter Fausto Rios 350.1.13.10 ity of [place].2.[place] [id number] [facility] 0[address] [place] 2020-04-01 2020-04-01 Anesthesia Demetrio Christensen [facility] 1.2.840.11 [id number] 08:01:00 08:33:00 [place] [facility] 350.1.13.10 [place] 4.2.7.2.686 Surgical [id number] [place] 020 2020-04-01 2020-04-01 Anesthesia Demetrio Christensen [facility] 1.2.840.11 4 [id number] Univers 08:01:00 08:33:00 [facility] 350.1.13.10 ity of [place] 4.2.7.2.[place] Surgical [id number] [facility] 020 [place] 2020-03-31 2020-03-31 Outpatient R ALEISHA [facility] [id number] Univers 09:30:00 09:30:00 FAUSTO ity [facility] 2020-03-30 2020-03-30 Outpatient R [facility] [id number] Univers 12:45:00 12:45:00 itagus [facility] 2020-03-30 2020-03-30 Laboratory Only, Adc Test [facility] 1.2.840. 114 [id number] Univers 11:17:56 11:32:56 Only Fausto Moraes 350.1.1 3.10 [place] [id number] [address] 2020-03-30 2020-03-30 Orders Doctor ROSELIA 1.2.840.114 [id number] Univers 00:00:00 00:00:00 Only Unassigned, CINDY 350.1.13.10 ity of [facility][1] 4.2.7.2.686 [place] as [id number] [address] 2020-03-25 2020-03-25 Outpatient [facility] 021 [id number] [place] 00:00:00 00:00:00 IMRAN [address] 2020-03-23 2020-03-23 Customer Order Clerk Jyoti, Juanpablo Lab Main [facility] 1.2.8 40.114 [id number] [facility] 15:51:10 16:06:10 Visit Fausto Moraes 350.1.1 3.10 ity [facility] 4.2.7.2.686 Jonelle aleman Professio [id number] Fl dical [address] 2020-03-23 2020-03-23 Outpatient Estevan MORAES [facility] [id number] [facility] 16:00:00 16:00:00 FAUSTO adam [facility] 2020-03-23 2020-03-23 Outpatient [facility] [id number] [place] 00:00:00 00:00:00 IMRAN 636 [address] i 2020-03-23 2020-03-23 Outpatient [facility] [id number] [place] 00:00:00 00:00:00 KI, [address] Results Test Description Test Time Test Comments Results Result Comments Source POCT GLUCOSE (AUTOMATED) 2022-12-22 16:45:56 Test Item Value Reference Range Interpretation Comme nts POCT GLU (test code = 9607277555) 137 mg/dL 70-110 H Lab Interpretation (test code = 92674-5) Abnormal [facility] GLUCOSE (AUTOMATED)2022-12-22 16:45:56 Test Item Value Reference Range Interpretation Comments POCT GLU (test code = 4724895637) 137 mg/dL 70-110 H Lab Interpretation (test code = Abnormal 24948-5) [facility] GLUCOSE (AUTOMATED)2022-12-22 11:07:25 Test Item Value Reference Range Interpretation Comments POCT GLU (test code = 3686921761) 97 mg/dL 70-110 Lab Interpretation (test code = Normal 53123-3) [facility] GLUCOSE (AUTOMATED)2022-12-22 11:07:25 Test Item Value Reference Range Interpretation Comments POCT GLU (test code = 9491022060) 97 mg/dL 70-110 Lab Interpretation (test code = Normal 58403-9) [facility] GLUCOSE (AUTOMATED)2022-12-22 05:06:33 Test Item Value Reference Range Interpretation Comments POCT GLU (test code = 4733851163) 117 mg/dL 70-110 H Lab Interpretation (test code = Abnormal 27614-2) [facility] GLUCOSE (AUTOMATED)2022-12-22 05:06:33 Test Item Value Reference Range Interpretation Comments POCT GLU (test code = 3698986053) 117 mg/dL 70-110 H Lab Interpretation (test code = Abnormal 11376-3) [facility] GLUCOSE (AUTOMATED)2022-12-21 23:17:30 Test Item Value Reference Range Interpretation Comments POCT GLU (test code = 6704186122) 77 mg/dL 70-110 Lab Interpretation (test code = Normal 09074-2) [facility] GLUCOSE (AUTOMATED)2022-12-21 23:17:30 Test Item Value Reference Range Interpretation Comments POCT GLU (test code = 9756731904) 77 mg/dL 70-110 Lab Interpretation (test code = Normal 37300-2) [facility] GLUCOSE (AUTOMATED)2022-12-21 17:17:55 Test Item Value Reference Range Interpretation Comments POCT GLU (test code = 5350811898) 120 mg/dL 70-110 H Lab Interpretation (test code = Abnormal 37882-2) [facility] GLUCOSE (AUTOMATED)2022-12-21 17:17:55 Test Item Value Reference Range Interpretation Comments POCT GLU (test code = 1107161777) 120 mg/dL 70-110 H Lab Interpretation (test code = Abnormal 88584-8) [facility] GLUCOSE (AUTOMATED)2022-12-21 11:10:25 Test Item Value Reference Range Interpretation Comments POCT GLU (test code = 8272635979) 114 mg/dL 70-110 H Lab Interpretation (test code = Abnormal 38589-1) [facility] GLUCOSE (AUTOMATED)2022-12-21 11:10:25 Test Item Value Reference Range Interpretation Comments POCT GLU (test code = 2784442180) 114 mg/dL 70-110 H Lab Interpretation (test code = Abnormal 35249-5) [facility] CULTURE [id number] 11:01:49 Test Item Value Reference Range Interpretation Comments Blood Culture-Aerobic No organisms No growth Previo us (test code = 38463-5) isolated prelim inary verified result was Culture In Progress on 12/16/2022 at 03 09 CDTPrevious preliminary verified result was No growth a t 24 hours on 12/17/2022 at 12 07 CDTPrevious preliminary verified result was No growth a t 48 hours on 12/18/2022 at 12 07 CDTPrevious preliminary verified result was No growth a t 72 hours on 12/19/2022 at 06 01 CDT Blood No organisms No growth Previous Culture-Anaerobic isolated preliminar y (test code = 15350-8) verifi ed result was Culture In Progress on 12/16/2022 at 03 09 CDTPrevious preliminary verified result was No growth a t 24 hours on 12/17/2022 at 06 CDTPrevious preliminary verified result was No growth a t 48 hours on 12/18/2022 at 06 CDTPrevious preliminary verified result was No growth a t 72 hours on 12/19/2022 at 06 01 CDT Lab Interpretation Normal (test code = 19019-2) [facility] CULTURE [id number] 11:01:49 Test Item Value Reference Range Interpretation Comments Blood Culture-Aerobic No organisms No growth Previo us (test code = 25874-2) isolated prelim inary verified result was Culture In Progress on 12/16/2022 at 09 CDTPrevious preliminary verified result was No growth a t 24 hours on 12/17/2022 at 12 07 CDTPrevious preliminary verified result was No growth a t 48 hours on 12/18/2022 at 06 CDTPrevious preliminary verified result was No growth a t 72 hours on 12/19/2022 at 06 01 CDT Blood No organisms No growth Previous Culture-Anaerobic isolated preliminar y (test code = 26593-1) verifi ed result was Culture In Progress on 12/16/2022 at 09 01 CDTPrevious preliminary verified result was No growth a t 24 hours on 12/17/2022 at 06 01 CDTPrevious preliminary verified result was No growth a t 48 hours on 12/18/2022 at 06 01 CDTPrevious preliminary verified result was No growth a t 72 hours on 12/19/2022 at 06 01 CDT Lab Interpretation Normal (test code = 57445-5) [facility] GLUCOSE (AUTOMATED)2022-12-21 05:17:25 Test Item Value Reference Range Interpretation Comments POCT GLU (test code = 7507100695) 120 mg/dL 70-110 H Lab Interpretation (test code = Abnormal 51788-5) [facility] GLUCOSE (AUTOMATED)2022-12-21 05:17:25 Test Item Value Reference Range Interpretation Comments POCT GLU (test code = 4312571969) 120 mg/dL 70-110 H Lab Interpretation (test code = Abnormal 35483-7) [facility] GLUCOSE (AUTOMATED)2022-12-20 23:02:14 Test Item Value Reference Range Interpretation Comments POCT GLU (test code = 9754058628) 155 mg/dL 70-110 H Lab Interpretation (test code = Abnormal 50279-0) [facility] GLUCOSE (AUTOMATED)2022-12-20 23:02:14 Test Item Value Reference Range Interpretation Comments POCT GLU (test code = 6455453276) 155 mg/dL 70-110 H Lab Interpretation (test code = Abnormal 25489-7) [facility] GLUCOSE (AUTOMATED)2022-12-20 16:58:40 Test Item Value Reference Range Interpretation Comments POCT GLU (test code = 7994840389) 150 mg/dL 70-110 H Lab Interpretation (test code = Abnormal 97536-3) [facility] GLUCOSE (AUTOMATED)2022-12-20 16:58:40 Test Item Value Reference Range Interpretation Comments POCT GLU (test code = 7417433266) 150 mg/dL 70-110 H Lab Interpretation (test code = Abnormal 13647-5) [facility]39 Test Item Value Reference Range Interpretation Comments MAGNESIUM (test code = 8048236959) 1.7 mg/dL 1.7-2.4 Lab Interpretation (test code = Normal 51929-1) [facility] 10:30:39 Test Item Value Reference Range Interpretation Comments MAGNESIUM (test code = 5272392017) 1.7 mg/dL 1.7-2.4 Lab Interpretation (test code = Normal 79810-6) [facility] (NA, K, CL, CO2, GLUCOSE, BUN, CREATININE, CA)2022-12-20 10:30:38 Test Item Value Reference Range Interpretation Comments NA (test code = 136 mmol/L 135-145 2365897450) K (test code = 4.1 mmol/L 3.5-5.0 6942388820) CL (test code = 101 mmol/L 98-108 1377560935) CO2 TOTAL (test code = 24 mmol/L 23-31 9580956584) AGAP (test code = 11 2-16 2930366178) BUN (test code = 46 mg/dL 7-23 H 4769886915) GLUCOSE (test code = 134 mg/dL 70-110 H 4216500533) CREATININE (test code = 4.18 mg/dL 0.50-1.04 H 0512110022) CALCIUM (test code = 8.5 mg/dL 8.6-10.6 L 9931825603) eGFR (test code = 10.6 mL/min/1.73m2 5673398745) BRAD (test code = BRAD) Association of [...] tests). Lab Interpretation Abnormal (test code = 73198-7) [facility] METABOLIC PANEL (NA, K, CL, CO2, GLUCOSE, BUN, CREATININE, CA)2022-12-20 10:30:38 Test Item Value Reference Range Interpretation Comments NA (test code = 136 mmol/L 135-145 3595875736) K (test code = 4.1 mmol/L 3.5-5.0 2866354109) CL (test code = 101 mmol/L 98-108 3030905159) CO2 TOTAL (test code = 24 mmol/L 23-31 2786830211) AGAP (test code = 11 2-16 4152115035) BUN (test code = 46 mg/dL 7-23 H 7152398663) GLUCOSE (test code = 134 mg/dL 70-110 H 4484179266) CREATININE (test code = 4.18 mg/dL 0.50-1.04 H 8762897211) CALCIUM (test code = 8.5 mg/dL 8.6-10.6 L 5194567492) eGFR (test code = 10.6 mL/min/1.73m2 2736703416) BRAD (test code = BRAD) Association of [...] tests). Lab Interpretation Abnormal (test code = 12062-0) [facility]2478[facility] (ALB,T.PRO,BILI T,BU/BC,ALT,AST,ALK PHOS)2022-12-20 10:30:18 Test Item Value Reference Range Interpretation Comments TOTAL BILI (test code = 5734931052) 0.5 mg/dL 0.1-1.1 BILI UNCON (test code = 4479863439) 0.0 mg/dL 0.1-1.1 L BILI CONJ (test code = 0179077350) 0.0 mg/dL 0.0-0.3 T PROTEIN (test code = 2290671215) 5.9 g/dL 6.3-8.2 L ALBUMIN (test code = 6714800471) 2.9 g/dL 3.5-5.0 L ALK PHOS (test code = 9759205975) 183 U/L 34-122 H ALTv (test code = 1742-6) 10 U/L 5-35 AST(SGOT) (test code = 9175806158) 46 U/L 13-40 H Lab Interpretation (test code = Abnormal 20041-9) [facility] 10:30:18 Test Item Value Reference Range Interpretation Comments PHOSPHORUS (test code = 8194749178) 4.4 mg/dL 2.5-5.0 Lab Interpretation (test code = Normal 23787-9) [facility]11559[facility] (ALB,T.PRO,BILI T,BU/BC,ALT,AST,ALK PHOS)2022-12-20 10:30:18 Test Item Value Reference Range Interpretation Comments TOTAL BILI (test code = 3174950599) 0.5 mg/dL 0.1-1.1 BILI UNCON (test code = 0848076254) 0.0 mg/dL 0.1-1.1 L BILI CONJ (test code = 2005719315) 0.0 mg/dL 0.0-0.3 T PROTEIN (test code = 8999097312) 5.9 g/dL 6.3-8.2 L ALBUMIN (test code = 8186968068) 2.9 g/dL 3.5-5.0 L ALK PHOS (test code = 7223670355) 183 U/L 34-122 H ALTv (test code = 1742-6) 10 U/L 5-35 AST(SGOT) (test code = 6532369013) 46 U/L 13-40 H Lab Interpretation (test code = Abnormal 18509-0) [facility] 10:30:18 Test Item Value Reference Range Interpretation Comments PHOSPHORUS (test code = 3225006735) 4.4 mg/dL 2.5-5.0 Lab Interpretation (test code = Normal 99534-3) [facility] WITH [id number] 10:01:54 Test Item Value Reference Range Interpretation Comments WBC (test code = 9.51 See_Comment [Automated 0625-2) message] The sy stem which generated this result transmitted reference range : 4.30 - 11.10 10*3/?L. The reference range was not used to interpret this result as normal/abnormal . RBC (test code = 2.60 See_Comment L [Automated 501-8) message] The sy stem which generated this result transmitted reference range : 3.93 - 5.25 10*6/?L. The reference range was not used to interpret this result as normal/abnormal . HGB (test code = 7.5 g/dL 11.6-15.0 L 718-7) HCT (test code = 24.2 % 35.7-45.2 L 4544-3) MCV (test code = 93.1 fL 80.6-95.5 787-2) MCH (test code = 28.8 pg 25.9-32.8 785-6) MCHC (test code = 31.0 g/dL 31.6-35.1 L 786-4) RDW-SD (test code = 51.4 fL 39.0-49.9 H 42692-3) RDW-CV (test code = 15.2 % 12.0-15.5 788-0) PLT (test code = 167 See_Comment [Automated 777-3) message] The sy stem which generated this result transmitted reference range : 166 - 358 10*3/ ?L. The reference r chikis was not used to interpret this result as normal/abnormal . MPV (test code = 9.5 fL 9.5-12.9 70643-5) NRBC/100 WBC (test 0.0 See_Comment [Automat ed code = 8361711974) message] The system which generated this result transmitted reference range : 0.0 - 10.0 /100 WBCs. The refer ence range was not u sed to interpret th is result as normal/abnormal . NRBC x10^3 (test code See_Comment [Auto mated = 8203126921) message] The s ystem which generated this result transmitted reference range : 10*3/?L. The reference range was not used to interpret this result as normal/abnormal . GRAN MAT (NEUT) % 76.9 % (test code = 770-8) IMM GRAN % (test code 1.10 % = 4770994233) LYMPH % (test code = 12.5 % 736-9) MONO % (test code = 6.6 % 5905-5) EOS % (test code = 2.7 % 713-8) BASO % (test code = 0.2 % 706-2) GRAN MAT x10^3(ANC) 7.31 10*3/uL 1.88-7.09 H (test code = 4650662478) IMM GRAN x10^3 (test 0.10 10*3/uL 0.00-0.06 H code = 1323366351) LYMPH x10^3 (test code 1.19 10*3/uL 1.32-3.29 L = 731-0) MONO x10^3 (test code 0.63 10*3/uL 0.33-0.92 = 742-7) EOS x10^3 (test code = 0.26 10*3/uL 0.03-0.39 711-2) BASO x10^3 (test code 0.01-0.07 = 704-7) Lab Interpretation Abnormal (test code = 67380-3) [facility] WITH [id number] 10:01:54 Test Item Value Reference Range Interpretation Comments WBC (test code = 9.51 See_Comment [Automated 1090-2) message] The sy stem which generated this result transmitted reference range : 4.30 - 11.10 10*3/?L. The reference range was not used to interpret this result as normal/abnormal . RBC (test code = 2.60 See_Comment L [Automated 969-8) message] The sy stem which generated this result transmitted reference range : 3.93 - 5.25 10*6/?L. The reference range was not used to interpret this result as normal/abnormal . HGB (test code = 7.5 g/dL 11.6-15.0 L 718-7) HCT (test code = 24.2 % 35.7-45.2 L 4544-3) MCV (test code = 93.1 fL 80.6-95.5 787-2) MCH (test code = 28.8 pg 25.9-32.8 785-6) MCHC (test code = 31.0 g/dL 31.6-35.1 L 786-4) RDW-SD (test code = 51.4 fL 39.0-49.9 H 00033-3) RDW-CV (test code = 15.2 % 12.0-15.5 788-0) PLT (test code = 167 See_Comment [Automated 777-3) message] The sy stem which generated this result transmitted reference range : 166 - 358 10*3/ ?L. The reference r chikis was not used to interpret this result as normal/abnormal . MPV (test code = 9.5 fL 9.5-12.9 92109-6) NRBC/100 WBC (test 0.0 See_Comment [Automat ed code = 8075826777) message] The system which generated this result transmitted reference range : 0.0 - 10.0 /100 WBCs. The refer ence range was not u sed to interpret th is result as normal/abnormal . NRBC x10^3 (test code See_Comment [Auto mated = 2354573101) message] The s ystem which generated this result transmitted reference range : 10*3/?L. The reference range was not used to interpret this result as normal/abnormal . GRAN MAT (NEUT) % 76.9 % (test code = 770-8) IMM GRAN % (test code 1.10 % = 2013379045) LYMPH % (test code = 12.5 % 736-9) MONO % (test code = 6.6 % 5905-5) EOS % (test code = 2.7 % 713-8) BASO % (test code = 0.2 % 706-2) GRAN MAT x10^3(ANC) 7.31 10*3/uL 1.88-7.09 H (test code = 6279387816) IMM GRAN x10^3 (test 0.10 10*3/uL 0.00-0.06 H code = 7535916875) LYMPH x10^3 (test code 1.19 10*3/uL 1.32-3.29 L = 731-0) MONO x10^3 (test code 0.63 10*3/uL 0.33-0.92 = 742-7) EOS x10^3 (test code = 0.26 10*3/uL 0.03-0.39 711-2) BASO x10^3 (test code 0.01-0.07 = 704-7) Lab Interpretation Abnormal (test code = 19422-3) [facility] GLUCOSE (AUTOMATED)2022-12-20 09:11:49 Test Item Value Reference Range Interpretation Comments POCT GLU (test code = 8949432731) 145 mg/dL 70-110 H Lab Interpretation (test code = Abnormal 89345-8) [facility] GLUCOSE (AUTOMATED)2022-12-20 09:11:49 Test Item Value Reference Range Interpretation Comments POCT GLU (test code = 7767704736) 145 mg/dL 70-110 H Lab Interpretation (test code = Abnormal 50438-0) [facility] 05:18:45 Test Item Value Reference Range Interpretation Comments POCT GLU (test code = 8964708813) 137 mg/dL 70-110 H Lab Interpretation (test code = Abnormal 43906-8) [facility] GLUCOSE (AUTOMATED)2022-12-20 05:18:45 Test Item Value Reference Range Interpretation Comments POCT GLU (test code = 4754918922) 137 mg/dL 70-110 H Lab Interpretation (test code = Abnormal 63888-4) [facility] GLUCOSE (AUTOMATED)2022-12-19 23:10:55 Test Item Value Reference Range Interpretation Comments POCT GLU (test code = 0518239007) 171 mg/dL 70-110 H Lab Interpretation (test code = Abnormal 34927-9) [facility] GLUCOSE (AUTOMATED)2022-12-19 23:10:55 Test Item Value Reference Range Interpretation Comments POCT GLU (test code = 9760852392) 171 mg/dL 70-110 H Lab Interpretation (test code = Abnormal 67564-8) [facility] GLUCOSE (AUTOMATED)2022-12-19 16:54:04 Test Item Value Reference Range Interpretation Comments POCT GLU (test code = 9215469973) 152 mg/dL 70-110 H Lab Interpretation (test code = Abnormal 30615-5) [facility] GLUCOSE (AUTOMATED)2022-12-19 16:54:04 Test Item Value Reference Range Interpretation Comments POCT GLU (test code = 2348725325) 152 mg/dL 70-110 H Lab Interpretation (test code = Abnormal 57048-6) [facility] GLUCOSE (AUTOMATED)2022-12-19 11:09:49 Test Item Value Reference Range Interpretation Comments POCT GLU (test code = 7026566876) 113 mg/dL 70-110 H Lab Interpretation (test code = Abnormal 92447-0) [facility] GLUCOSE (AUTOMATED)2022-12-19 11:09:49 Test Item Value Reference Range Interpretation Comments POCT GLU (test code = 6696138869) 113 mg/dL 70-110 H Lab Interpretation (test code = Abnormal 11343-3) [facility] 05:06:10 Test Item Value Reference Range Interpretation Comments POCT GLU (test code = 5891005581) 131 mg/dL 70-110 H Lab Interpretation (test code = Abnormal 96512-2) [facility] GLUCOSE (AUTOMATED)2022-12-19 05:06:10 Test Item Value Reference Range Interpretation Comments POCT GLU (test code = 1090858900) 131 mg/dL 70-110 H Lab Interpretation (test code = Abnormal 11265-9) [facility] GLUCOSE (AUTOMATED)2022-12-18 22:59:48 Test Item Value Reference Range Interpretation Comments POCT GLU (test code = 9823635468) 133 mg/dL 70-110 H Lab Interpretation (test code = Abnormal 05305-2) [facility] GLUCOSE (AUTOMATED)2022-12-18 22:59:48 Test Item Value Reference Range Interpretation Comments POCT GLU (test code = 3285279807) 133 mg/dL 70-110 H Lab Interpretation (test code = Abnormal 94248-7) [facility] GLUCOSE (AUTOMATED)2022-12-18 16:36:14 Test Item Value Reference Range Interpretation Comments POCT GLU (test code = 7690690122) 171 mg/dL 70-110 H Lab Interpretation (test code = Abnormal 34797-2) [facility] GLUCOSE (AUTOMATED)2022-12-18 16:36:14 Test Item Value Reference Range Interpretation Comments POCT GLU (test code = 0060744182) 171 mg/dL 70-110 H Lab Interpretation (test code = Abnormal 18798-9) [facility] GLUCOSE (AUTOMATED)2022-12-18 10:49:33 Test Item Value Reference Range Interpretation Comments POCT GLU (test code = 3896459748) 116 mg/dL 70-110 H Lab Interpretation (test code = Abnormal 28503-6) [facility] 10:49:33 Test Item Value Reference Range Interpretation Comments POCT GLU (test code = 9507644298) 116 mg/dL 70-110 H Lab Interpretation (test code = Abnormal 21054-8) [facility] GLUCOSE (AUTOMATED)2022-12-18 05:43:21 Test Item Value Reference Range Interpretation Comments POCT GLU (test code = 5222437698) 119 mg/dL 70-110 H Lab Interpretation (test code = Abnormal 89021-1) [facility] GLUCOSE (AUTOMATED)2022-12-18 05:43:21 Test Item Value Reference Range Interpretation Comments POCT GLU (test code = 3542610576) 119 mg/dL 70-110 H Lab Interpretation (test code = Abnormal 79440-8) [facility] GLUCOSE (AUTOMATED)2022-12-17 23:28:43 Test Item Value Reference Range Interpretation Comments POCT GLU (test code = 0724559848) 102 mg/dL 70-110 Lab Interpretation (test code = Normal 77992-2) [facility] GLUCOSE (AUTOMATED)2022-12-17 23:28:43 Test Item Value Reference Range Interpretation Comments POCT GLU (test code = 4501369800) 102 mg/dL 70-110 Lab Interpretation (test code = Normal 44523-7) [facility] GLUCOSE (AUTOMATED)2022-12-17 17:00:09 Test Item Value Reference Range Interpretation Comments POCT GLU (test code = 2361376408) 135 mg/dL 70-110 H Lab Interpretation (test code = Abnormal 77340-9) [facility] GLUCOSE (AUTOMATED)2022-12-17 17:00:09 Test Item Value Reference Range Interpretation Comments POCT GLU (test code = 3784215729) 135 mg/dL 70-110 H Lab Interpretation (test code = Abnormal 20654-7) [facility] Culture - Peripheral # [id number] 13:40:27 Test Item Value Reference Range Interpretation Comments Blood Culture-Aerobic Culture positive. No growth AA P revious (test code = 10309-9) See Blood Culture p reliminary Workup for verified result additional was Culture In information. Progress on 12/15/2022 at 062 6 CDT Blood Culture positive. No growth AA Previous Culture-Anaerobic See Blood Culture preli minary (test code = 33436-8) Workup for verifi ed result additional was Culture In information. Progress on 12/14/2022 at 220 1 CDT Lab Interpretation Abnormal (test code = 63220-7) [facility] Culture - Peripheral # 13:40:27 Test Item Value Reference Range Interpretation Comments Blood Culture-Aerobic Culture positive. No growth AA P revious (test code = 71014-9) See Blood Culture p reliminary Workup for verified result additional was Culture In information. Progress on 12/15/2022 at 062 7 CDT Blood Culture positive. No growth AA Previous Culture-Anaerobic See Blood Culture preli minary (test code = 16047-8) Workup for verifi ed result additional was Culture In information. Progress on 12/14/2022 at 220 1 CDT Lab Interpretation Abnormal (test code = 24998-4) [facility] CULTURE [id number] 13:40:27 Test Item Value Reference Range Interpretation Comments Blood Culture Staphylococcus aureus Organ ism identified Workup (test by DNA probeFor code = 600-7) susceptibility results, refer to culture # - [id number] Gram stain Isolated from aerobic This i s an appended (test code = bottle Gram positive report. These 664-3) cocci results have be en appended to a previously preliminary wesley ified report. [facility] Culture - Peripheral # [id number] 13:40:27 Test Item Value Reference Range Interpretation Comments Blood Culture-Aerobic Culture positive. No growth AA P revious (test code = 13864-9) See Blood Culture p reliminary Workup for verified result additional was Culture In information. Progress on 12/15/2022 at 062 6 CDT Blood Culture positive. No growth AA Previous Culture-Anaerobic See Blood Culture preli minary (test code = 29274-2) Workup for verifi ed result additional was Culture In information. Progress on 12/14/2022 at 220 1 CDT Lab Interpretation Abnormal (test code = 38587-6) [facility] Culture - Peripheral # [id number] 13:40:27 Test Item Value Reference Range Interpretation Comments Blood Culture-Aerobic Culture positive. No growth AA P revious (test code = 11129-4) See Blood Culture p reliminary Workup for verified result additional was Culture In information. Progress on 12/15/2022 at 062 7 CDT Blood Culture positive. No growth AA Previous Culture-Anaerobic See Blood Culture preli minary (test code = 02256-9) Workup for verifi ed result additional was Culture In information. Progress on 12/14/2022 at 220 1 CDT Lab Interpretation Abnormal (test code = 95536-4) [facility] [id number] 13:40:27 Test Item Value Reference Range Interpretation Comments Blood Culture Staphylococcus aureus Organ ism identified Workup (test by DNA probeFor code = 600-7) susceptibility results, refer to culture # - [id number] Gram stain Isolated from aerobic This i s an appended (test code = bottle Gram positive report. These 664-3) cocci results have be en appended to a previously preliminary wesley ified report. [facility] GLUCOSE (AUTOMATED)2022-12-17 10:41:20 Test Item Value Reference Range Interpretation Comments POCT GLU (test code = 8902648612) 92 mg/dL 70-110 Lab Interpretation (test code = Normal 18784-3) [facility] GLUCOSE (AUTOMATED)2022-12-17 10:41:20 Test Item Value Reference Range Interpretation Comments POCT GLU (test code = 3488226536) 92 mg/dL 70-110 Lab Interpretation (test code = Normal 99147-1) [facility] GLUCOSE (AUTOMATED)2022-12-17 04:21:25 Test Item Value Reference Range Interpretation Comments POCT GLU (test code = 7963200114) 122 mg/dL 70-110 H Lab Interpretation (test code = Abnormal 45255-7) [facility] GLUCOSE (AUTOMATED)2022-12-17 04:21:25 Test Item Value Reference Range Interpretation Comments POCT GLU (test code = 2616116094) 122 mg/dL 70-110 H Lab Interpretation (test code = Abnormal 31154-6) [facility] GLUCOSE (AUTOMATED)2022-12-16 23:26:05 Test Item Value Reference Range Interpretation Comments POCT GLU (test code = 3187123182) 113 mg/dL 70-110 H Lab Interpretation (test code = Abnormal 19926-1) [facility] GLUCOSE (AUTOMATED)2022-12-16 23:26:05 Test Item Value Reference Range Interpretation Comments POCT GLU (test code = 5983471639) 113 mg/dL 70-110 H Lab Interpretation (test code = Abnormal 05213-7) [facility] GLUCOSE (AUTOMATED)2022-12-16 16:43:54 Test Item Value Reference Range Interpretation Comments POCT GLU (test code = 6200665709) 77 mg/dL 70-110 Lab Interpretation (test code = Normal 21187-4) [facility] GLUCOSE (AUTOMATED)2022-12-16 16:43:54 Test Item Value Reference Range Interpretation Comments POCT GLU (test code = 3529967321) 77 mg/dL 70-110 Lab Interpretation (test code = Normal 29258-1) [facility] [id number] 11:41:12 Test Item Value Reference Range Interpretation Comments TROPONIN I (test code = 0.106 ng/mL <=0.034 H 3009287502) BRAD (test code = BRAD) Reference (Normal) [...] biotin. Lab Interpretation Abnormal (test code = 58176-1) [facility] [id number] 11:41:12 Test Item Value Reference Range Interpretation Comments TROPONIN I (test code = 0.106 ng/mL <=0.034 H 0320631629) BRAD (test code = BRAD) Reference (Normal) [...] biotin. Lab Interpretation Abnormal (test code = 02547-5) [facility] METABOLIC PANEL (NA, K, CL, CO2, GLUCOSE, BUN, CREATININE, CA)2022-12-16 11:40:31 Test Item Value Reference Range Interpretation Comments NA (test code = 139 mmol/L 135-145 2875361596) K (test code = 3.6 mmol/L 3.5-5.0 4556498901) CL (test code = 104 mmol/L 98-108 3121342796) CO2 TOTAL (test code = 25 mmol/L 23-31 9861660850) AGAP (test code = 10 2-16 3575968562) BUN (test code = 30 mg/dL 7-23 H 8466204562) GLUCOSE (test code = 83 mg/dL 70-110 7208294029) CREATININE (test code = 3.06 mg/dL 0.50-1.04 H 7217954302) CALCIUM (test code = 9.0 mg/dL 8.6-10.6 6971342178) eGFR (test code = 15.3 mL/min/1.73m2 9627849386) BRAD (test code = BRAD) Association of [...] tests). Lab Interpretation Abnormal (test code = 17806-6) [facility] METABOLIC PANEL (NA, K, CL, CO2, GLUCOSE, BUN, CREATININE, CA)2022-12-16 11:40:31 Test Item Value Reference Range Interpretation Comments NA (test code = 139 mmol/L 135-145 7498864653) K (test code = 3.6 mmol/L 3.5-5.0 6831103138) CL (test code = 104 mmol/L 98-108 5227447624) CO2 TOTAL (test code = 25 mmol/L 23-31 4041348045) AGAP (test code = 10 2-16 3740787751) BUN (test code = 30 mg/dL 7-23 H 8277326309) GLUCOSE (test code = 83 mg/dL 70-110 8230544314) CREATININE (test code = 3.06 mg/dL 0.50-1.04 H 4221056394) CALCIUM (test code = 9.0 mg/dL 8.6-10.6 4510127790) eGFR (test code = 15.3 mL/min/1.73m2 8255757452) BRAD (test code = BRAD) Association of [...] tests). Lab Interpretation Abnormal (test code = 40743-8) [facility] Random [id number] 11:40:16 Test Item Value Reference Range Interpretation Comments VANCO RANDOM (test code = 18.0 ug/mL 2939885950) [facility] Random [id number] 11:40:16 Test Item Value Reference Range Interpretation Comments VANCO RANDOM (test code = 18.0 ug/mL 4513657968) [facility] (ALB,T.PRO,BILI T,BU/BC,ALT,AST,ALK PHOS)2022-12-16 11:39:51 Test Item Value Reference Range Interpretation Comments TOTAL BILI (test code = 7581459144) 0.8 mg/dL 0.1-1.1 BILI UNCON (test code = 4088371426) 0.1 mg/dL 0.1-1.1 BILI CONJ (test code = 6257553868) 0.0 mg/dL 0.0-0.3 T PROTEIN (test code = 9773367742) 5.4 g/dL 6.3-8.2 L ALBUMIN (test code = 1062077269) 2.5 g/dL 3.5-5.0 L ALK PHOS (test code = 9047060177) 155 U/L 34-122 H ALTv (test code = 1742-6) 19 U/L 5-35 AST(SGOT) (test code = 0174304392) 30 U/L 13-40 Lab Interpretation (test code = Abnormal 75943-9) [facility]14069[facility] (ALB,T.PRO,BILI T,BU/BC,ALT,AST,ALK PHOS)2022-12-16 11:39:51 Test Item Value Reference Range Interpretation Comments TOTAL BILI (test code = 7836311113) 0.8 mg/dL 0.1-1.1 BILI UNCON (test code = 4496425270) 0.1 mg/dL 0.1-1.1 BILI CONJ (test code = 7050156886) 0.0 mg/dL 0.0-0.3 T PROTEIN (test code = 1243423620) 5.4 g/dL 6.3-8.2 L ALBUMIN (test code = 2716477519) 2.5 g/dL 3.5-5.0 L ALK PHOS (test code = 5892630108) 155 U/L 34-122 H ALTv (test code = 1742-6) 19 U/L 5-35 AST(SGOT) (test code = 5062792677) 30 U/L 13-40 Lab Interpretation (test code = Abnormal 11799-9) [facility] GLUCOSE (AUTOMATED)2022-12-16 11:15:55 Test Item Value Reference Range Interpretation Comments POCT GLU (test code = 9142688895) 94 mg/dL 70-110 Lab Interpretation (test code = Normal 62182-2) [facility] GLUCOSE (AUTOMATED)2022-12-16 11:15:55 Test Item Value Reference Range Interpretation Comments POCT GLU (test code = 5489366197) 94 mg/dL 70-110 Lab Interpretation (test code = Normal 13201-3) [facility]Ab[facility]2022-12-16 10:38:42 Test Item Value Reference Range Interpretation Comments HBsAB (test code = Indeterminate 9519498154) HBsAb 8.40 mIU/mL Semi-Quantitative (test code = 0737840441) BRAD (test code = Unable to determine if BRAD) antibody to Hepatitis B Surface Antigen is present at levels consistent with immunity. ?Patient's immune status should be assessed with other clinical information and/or retesting in 4-6 weeks as clinically indicated. ?If any questions, please contact Clinical Chemistry Director cone winder at .Interpretati on: ?Hepatitis B Surface Antibody ? Negative - Patient is considered to be not immune to infection with HBV. ? ? Positive - Anti-HBs detected at greater than or equal to 12 mIU/mL. ?Patient is considered to be immune to infection with HBV. ? [facility]2022-[facility]-16 10:38:42 Test Item Value Reference Range Interpretation Comments HBsAB (test code = Indeterminate 5817798023) HBsAb 8.40 mIU/mL Semi-Quantitative (test code = 9348737523) BRAD (test code = Unable to determine if BRAD) antibody to Hepatitis B Surface Antigen is present at levels consistent with immunity. ?Patient's immune status should be assessed with other clinical information and/or retesting in 4-6 weeks as clinically indicated. ?If any questions, please contact Clinical Chemistry Director cone winder at .Interpretati on: ?Hepatitis B Surface Antibody ? Negative - Patient is considered to be not immune to infection with HBV. ? ? Positive - Anti-HBs detected at greater than or equal to 12 mIU/mL. ?Patient is considered to be immune to infection with HBV. ? [facility] WITH [id number] 10:21:46 Test Item Value Reference Range Interpretation Comments WBC (test code = 15.75 See_Comment H [Automated 9327-2) message] The system which generated this result transmit matthew reference range : 4.30 - 11.10 10*3/?L. The reference range was not used to interpret this result as normal/abnormal . RBC (test code = 2.60 See_Comment L [Automated 409-8) message] The system which generated this result transmit matthew reference range : 3.93 - 5.25 10*6/?L. The reference range was not used to interpret this result as normal/abnormal . HGB (test code = 7.6 g/dL 11.6-15.0 L 718-7) HCT (test code = 23.9 % 35.7-45.2 L 4544-3) MCV (test code = 91.9 fL 80.6-95.5 787-2) MCH (test code = 29.2 pg 25.9-32.8 785-6) MCHC (test code = 31.8 g/dL 31.6-35.1 786-4) RDW-SD (test code = 52.0 fL 39.0-49.9 H 83084-1) RDW-CV (test code = 15.7 % 12.0-15.5 H 788-0) PLT (test code = 144 See_Comment L [Automated 777-3) message] The system which generated this result transmit matthew reference range : 166 - 358 10*3/ ?L. The reference range was not u sed to interpret th is result as normal/abnormal . MPV (test code = 9.4 fL 9.5-12.9 L 16084-6) NRBC/100 WBC (test 0.0 See_Comment [Automat ed code = 0014909137) message] The system which generated this result transmit matthew reference range : 0.0 - 10.0 /100 WBCs. The reference range was not used to interpret this result as normal/abnormal . NRBC x10^3 (test code See_Comment [Auto mated = 0224738237) message] The system which generated this result transmit matthew reference range : 10*3/?L. The reference range was not used to interpret this result as normal/abnormal . GRAN MAT (NEUT) % 88.9 % (test code = 770-8) IMM GRAN % (test code 0.80 % = 9153806473) LYMPH % (test code = 5.8 % 736-9) MONO % (test code = 3.6 % 5905-5) EOS % (test code = 0.8 % 713-8) BASO % (test code = 0.1 % 706-2) GRAN MAT x10^3(ANC) 13.99 10*3/uL 1.88-7.09 H (test code = 8180220973) IMM GRAN x10^3 (test 0.13 10*3/uL 0.00-0.06 H code = 9846206286) LYMPH x10^3 (test code 0.92 10*3/uL 1.32-3.29 L = 731-0) MONO x10^3 (test code 0.56 10*3/uL 0.33-0.92 = 742-7) EOS x10^3 (test code = 0.13 10*3/uL 0.03-0.39 711-2) BASO x10^3 (test code 0.01-0.07 = 704-7) Lab Interpretation Abnormal (test code = 71130-9) [facility] WITH [id number] 10:21:46 Test Item Value Reference Range Interpretation Comments WBC (test code = 15.75 See_Comment H [Automated 6690-2) message] The system which generated this result transmit matthew reference range : 4.30 - 11.10 10*3/?L. The reference range was not used to interpret this result as normal/abnormal . RBC (test code = 2.60 See_Comment L [Automated 789-8) message] The system which generated this result transmit matthew reference range : 3.93 - 5.25 10*6/?L. The reference range was not used to interpret this result as normal/abnormal . HGB (test code = 7.6 g/dL 11.6-15.0 L 718-7) HCT (test code = 23.9 % 35.7-45.2 L 4544-3) MCV (test code = 91.9 fL 80.6-95.5 787-2) MCH (test code = 29.2 pg 25.9-32.8 785-6) MCHC (test code = 31.8 g/dL 31.6-35.1 786-4) RDW-SD (test code = 52.0 fL 39.0-49.9 H 44769-8) RDW-CV (test code = 15.7 % 12.0-15.5 H 788-0) PLT (test code = 144 See_Comment L [Automated 777-3) message] The system which generated this result transmit matthew reference range : 166 - 358 10*3/ ?L. The reference range was not u sed to interpret th is result as normal/abnormal . MPV (test code = 9.4 fL 9.5-12.9 L 17650-5) NRBC/100 WBC (test 0.0 See_Comment [Automat ed code = 2113569495) message] The system which generated this result transmit matthew reference range : 0.0 - 10.0 /100 WBCs. The reference range was not used to interpret this result as normal/abnormal . NRBC x10^3 (test code See_Comment [Auto mated = 3577841835) message] The system which generated this result transmit matthew reference range : 10*3/?L. The reference range was not used to interpret this result as normal/abnormal . GRAN MAT (NEUT) % 88.9 % (test code = 770-8) IMM GRAN % (test code 0.80 % = 3577239170) LYMPH % (test code = 5.8 % 736-9) MONO % (test code = 3.6 % 5905-5) EOS % (test code = 0.8 % 713-8) BASO % (test code = 0.1 % 706-2) GRAN MAT x10^3(ANC) 13.99 10*3/uL 1.88-7.09 H (test code = 6409293652) IMM GRAN x10^3 (test 0.13 10*3/uL 0.00-0.06 H code = 9684866964) LYMPH x10^3 (test code 0.92 10*3/uL 1.32-3.29 L = 731-0) MONO x10^3 (test code 0.56 10*3/uL 0.33-0.92 = 742-7) EOS x10^3 (test code = 0.13 10*3/uL 0.03-0.39 711-2) BASO x10^3 (test code 0.01-0.07 = 704-7) Lab Interpretation Abnormal (test code = 51759-2) [facility] B Surface Antigen (HBsAg)2022-12-16 06:57:04 Test Item Value Reference Range Interpretation Comments HBsAg Semi-Quantitative (test code = 0.06 Negative 5195-3) [facility] B Surface Antigen (HBsAg)2022-12-16 06:57:04 Test Item Value Reference Range Interpretation Comments HBsAg Semi-Quantitative (test code = 0.06 Negative 5195-3) [facility] GLUCOSE (AUTOMATED)2022-12-16 05:30:23 Test Item Value Reference Range Interpretation Comments POCT GLU (test code = 5296236233) 75 mg/dL 70-110 Lab Interpretation (test code = Normal 53213-8) [facility] GLUCOSE (AUTOMATED)2022-12-16 05:30:23 Test Item Value Reference Range Interpretation Comments POCT GLU (test code = 0376847352) 75 mg/dL 70-110 Lab Interpretation (test code = Normal 89016-8) [facility] [id number] 23:05:10 Test Item Value Reference Range Interpretation Comments TROPONIN I (test code = 0.088 ng/mL <=0.034 H 9679322103) BRAD (test code = BRAD) Reference (Normal) [...] biotin. Lab Interpretation Abnormal (test code = 95627-2) [facility] [id number] 23:05:10 Test Item Value Reference Range Interpretation Comments TROPONIN I (test code = 0.088 ng/mL <=0.034 H 1211235786) BRAD (test code = BRAD) Reference (Normal) [...] biotin. Lab Interpretation Abnormal (test code = 23052-1) [facility] GLUCOSE (AUTOMATED)2022-12-15 23:02:20 Test Item Value Reference Range Interpretation Comments POCT GLU (test code = 8540365506) 166 mg/dL 70-110 H Lab Interpretation (test code = Abnormal 35621-0) [facility] 23:02:20 Test Item Value Reference Range Interpretation Comments POCT GLU (test code = 3307700341) 166 mg/dL 70-110 H Lab Interpretation (test code = Abnormal 21507-5) [facility] P[facility] RBC (in units), 1 Units 2022-12-15 22:05:53 Test Item Value Reference Range Interpretation Comments Cross Match Result Compatible (test code = 4409) ISBT Blood Type Code 6200 (test code = 986243) Unit Blood Type (test A Pos code = 4410) Unit Number (test [id number] code = 4411) Blood Expiration Date & Time (test code = 527824) Status Information Issued (test code = 4412) Product Red Blood Cells Identification (test code = 4413) Product Code (test T0150P15 [facility]14[facility] Blood [address] [place], [place] [address]Toll Free: [phone] A No. [id number] [facility] Packed RBC (in units), 1 Units 2022-12-15 22:05:53 Test Item Value Reference Range Interpretation Comments Cross Match Result Compatible (test code = 4409) ISBT Blood Type Code 6200 (test code = 776273) Unit Blood Type (test A Pos code = 4410) Unit Number (test [id number] code = 4411) Blood Expiration Date & Time (test code = 699409) Status Information Issued (test code = 4412) Product Red Blood Cells Identification (test code = 4413) Product Code (test C0311C56 [facility] code = 4414[facility] Laboratory Services [facility] Blood [address] [place], [place] [address]Toll Free: [phone] A No. [id number] [facility] POS[facility]IVE BLOOD PATHOGENS DNA [id number] 21:12:06 Test Item Value Reference Range Interpretation Comments Staphylococcus aureus Positive Negative, See A (test code = 19584-1) Comment/Narrativ e mecA (test code = Negative Negative, See 13274-7) Comment/Narrativ e BRAD (test code = BRAD) MSSA detected by DNA probe. ?See blood culture result for additional susceptibilityInformati on. Preferred therapies for MSSA ?bacteremia are nafcillin or cefazolin.Infectious Diseases consultation recommended. Please contact the [facility]wardship Program with questions.ASP Pager: ?[phone] Testing included eleven identification and three resistance marker targets. See blood culture result for additional information. Testing included eleven identification and three resistancemarker targets. Lab Interpretation Abnormal (test code = 04672-5) [facility]ENS DNA [id number] 21:12:06 Test Item Value Reference Range Interpretation Comments Staphylococcus aureus Positive Negative, See A (test code = 34435-9) Comment/Narrativ e mecA (test code = Negative Negative, See 82989-1) Comment/Narrativ e BRAD (test code = BRAD) MSSA detected by DNA probe. ?See blood culture result for additional susceptibilityInformati on. Preferred therapies for MSSA ?bacteremia are nafcillin or cefazolin.Infectious Diseases consultation recommended. Please contact the Antimicrobial Stewardship Program with questions.ASP Pager: ?[phone] Testing included eleven identification and three resistance marker targets. See blood culture result for additional information. Testing included eleven identification and three resistancemarker targets. Lab Interpretation Abnormal (test code = 45309-3) [facility]15 17:59:51 Test Item Value Reference Range Interpretation Comments POCT GLU (test code = 8730665168) 88 mg/dL 70-110 Lab Interpretation (test code = Normal 31328-4) [facility]2022-[facility]-15 17:59:51 Test Item Value Reference Range Interpretation Comments POCT GLU (test code = 7517141991) 88 mg/dL 70-110 Lab Interpretation (test code = Normal 37020-7) [facility] [id number] 12:38:38 Test Item Value Reference Range Interpretation Comments NT-proBNP (test code = 72319 pg/mL <=125 H 2521577109) BRAD (test code = BRAD) Biotin has been reported to cause a negative bias, interpret results relative to patient's use of biotin. Lab Interpretation (test Abnormal code = 98942-0) [facility] [id number] 12:38:38 Test Item Value Reference Range Interpretation Comments NT-proBNP (test code = 70606 pg/mL <=125 H 7713471789) BRAD (test code = BRAD) Biotin has been reported to cause a negative bias, interpret results relative to patient's use of biotin. Lab Interpretation (test Abnormal code = 11703-7) [facility] WITH [id number] 12:16:32 Test Item Value Reference Range Interpretation Comments WBC (test code = 29.95 See_Comment H [Automated 1509-2) message] The system which generated this result transmitted reference range : 4.30 - 11.10 10*3/?L. The reference range was not used to interpret this result as normal/abnormal . RBC (test code = 2.56 See_Comment L [Automated 486-8) message] The system which generated this result transmitted reference range : 3.93 - 5.25 10*6/?L. The reference range was not used to interpret this result as normal/abnormal . HGB (test code = 7.4 g/dL 11.6-15.0 L 718-7) HCT (test code = 23.6 % 35.7-45.2 L 4544-3) MCV (test code = 92.2 fL 80.6-95.5 787-2) MCH (test code = 28.9 pg 25.9-32.8 785-6) MCHC (test code = 31.4 g/dL 31.6-35.1 L 786-4) RDW-SD (test code = 51.8 fL 39.0-49.9 H 02732-7) RDW-CV (test code = 15.6 % 12.0-15.5 H 788-0) PLT (test code = 174 See_Comment [Automated 777-3) message] The system which generated this result transmitted reference range : 166 - 358 10*3/?L. The reference range was not used to interpret this result as normal/abnormal . MPV (test code = 9.0 fL 9.5-12.9 L 21406-2) NRBC/100 WBC (test 0.0 See_Comment [Automat ed code = 3153046904) message] The system which generated this result transmitted reference range : 0.0 - 10.0 /100 WBCs. The reference range was not used to interpret this result as normal/abnormal . NRBC x10^3 (test code See_Comment [Auto mated = 3638621054) message] The system which generated this result transmitted reference range : 10*3/?L. The reference range was not used to interpret this result as normal/abnormal . GRAN MAT (NEUT) % 94.9 % (test code = 770-8) IMM GRAN % (test code 0.90 % = 8142061905) LYMPH % (test code = 1.3 % 736-9) MONO % (test code = 2.4 % 5905-5) EOS % (test code = 0.2 % 713-8) BASO % (test code = 0.3 % 706-2) GRAN MAT x10^3(ANC) 28.43 10*3/uL 1.88-7.09 H (test code = 1590719561) IMM GRAN x10^3 (test 0.27 10*3/uL 0.00-0.06 H code = 3345559738) LYMPH x10^3 (test 0.38 10*3/uL 1.32-3.29 L code = 731-0) MONO x10^3 (test code 0.72 10*3/uL 0.33-0.92 = 742-7) EOS x10^3 (test code 0.07 10*3/uL 0.03-0.39 = 711-2) BASO x10^3 (test code 0.08 10*3/uL 0.01-0.07 H = 704-7) POLYCHROMASIA (test 2+ See_Comment [Automa matthew code = 62971-1) message] The system which generated this result transmitted reference range : 2+. The referen ce range was not used to interpr et this result as normal/abnormal . BANDS (test code = MARKED INCREASED A 0624903178) DOHLE BODIES (test Present A code = 7792-5) TOXIC CHANGES (test Present A code = 803-7) GIANT PLATELETS (test Present See_Comment A [Auto mated code = 5908-9) message] The system which generated this result transmitted reference range : (none). The reference range was not used to interpret this result as normal/abnormal . Lab Interpretation Abnormal (test code = 36920-1) [facility] WITH [id number] 12:16:32 Test Item Value Reference Range Interpretation Comments WBC (test code = 29.95 See_Comment H [Automated 6690-2) message] The system which generated this result transmitted reference range : 4.30 - 11.10 10*3/?L. The reference range was not used to interpret this result as normal/abnormal . RBC (test code = 2.56 See_Comment L [Automated 789-8) message] The system which generated this result transmitted reference range : 3.93 - 5.25 10*6/?L. The reference range was not used to interpret this result as normal/abnormal . HGB (test code = 7.4 g/dL 11.6-15.0 L 718-7) HCT (test code = 23.6 % 35.7-45.2 L 4544-3) MCV (test code = 92.2 fL 80.6-95.5 787-2) MCH (test code = 28.9 pg 25.9-32.8 785-6) MCHC (test code = 31.4 g/dL 31.6-35.1 L 786-4) RDW-SD (test code = 51.8 fL 39.0-49.9 H 64726-5) RDW-CV (test code = 15.6 % 12.0-15.5 H 788-0) PLT (test code = 174 See_Comment [Automated 777-3) message] The system which generated this result transmitted reference range : 166 - 358 10*3/?L. The reference range was not used to interpret this result as normal/abnormal . MPV (test code = 9.0 fL 9.5-12.9 L 07425-1) NRBC/100 WBC (test 0.0 See_Comment [Automat ed code = 6351815902) message] The system which generated this result transmitted reference range : 0.0 - 10.0 /100 WBCs. The reference range was not used to interpret this result as normal/abnormal . NRBC x10^3 (test code See_Comment [Auto mated = 5226127995) message] The system which generated this result transmitted reference range : 10*3/?L. The reference range was not used to interpret this result as normal/abnormal . GRAN MAT (NEUT) % 94.9 % (test code = 770-8) IMM GRAN % (test code 0.90 % = 7786155001) LYMPH % (test code = 1.3 % 736-9) MONO % (test code = 2.4 % 5905-5) EOS % (test code = 0.2 % 713-8) BASO % (test code = 0.3 % 706-2) GRAN MAT x10^3(ANC) 28.43 10*3/uL 1.88-7.09 H (test code = 2766275295) IMM GRAN x10^3 (test 0.27 10*3/uL 0.00-0.06 H code = 0812335543) LYMPH x10^3 (test 0.38 10*3/uL 1.32-3.29 L code = 731-0) MONO x10^3 (test code 0.72 10*3/uL 0.33-0.92 = 742-7) EOS x10^3 (test code 0.07 10*3/uL 0.03-0.39 = 711-2) BASO x10^3 (test code 0.08 10*3/uL 0.01-0.07 H = 704-7) POLYCHROMASIA (test 2+ See_Comment [Automa matthew code = 34683-0) message] The system which generated this result transmitted reference range : 2+. The referen ce range was not used to interpr et this result as normal/abnormal . BANDS (test code = MARKED INCREASED A 2247326855) DOHLE BODIES (test Present A code = 7792-5) TOXIC CHANGES (test Present A code = 803-7) GIANT PLATELETS (test Present See_Comment A [Auto mated code = 5908-9) message] The system which generated this result transmitted reference range : (none). The reference range was not used to interpret this result as normal/abnormal . Lab Interpretation Abnormal (test code = 73634-1) [facility] [id number] 12:05:11 Test Item Value Reference Range Interpretation Comments TROPONIN I (test code = 0.096 ng/mL <=0.034 H 5618329574) BRAD (test code = BRAD) Reference (Normal) [...] biotin. Lab Interpretation Abnormal (test code = 50630-5) [facility] [id number] 12:05:11 Test Item Value Reference Range Interpretation Comments TROPONIN I (test code = 0.096 ng/mL <=0.034 H 2818560548) BRAD (test code = BRAD) Reference (Normal) [...] biotin. Lab Interpretation Abnormal (test code = 79121-8) [facility] METABOLIC PANEL (NA, K, CL, CO2, GLUCOSE, BUN, CREATININE, CA)2022-12-15 11:53:07 Test Item Value Reference Range Interpretation Comments NA (test code = 139 mmol/L 135-145 2883686246) K (test code = 3.6 mmol/L 3.5-5.0 7512186632) CL (test code = 104 mmol/L 98-108 6326705462) CO2 TOTAL (test code = 19 mmol/L 23-31 L 8195561930) AGAP (test code = 16 2-16 6447239181) BUN (test code = 41 mg/dL 7-23 H 2081315255) GLUCOSE (test code = 85 mg/dL 70-110 0748978131) CREATININE (test code = 3.85 mg/dL 0.50-1.04 H 3834049677) CALCIUM (test code = 8.9 mg/dL 8.6-10.6 8973238563) eGFR (test code = 11.7 mL/min/1.73m2 9115854353) BRAD (test code = BRAD) Association of [...] tests). Lab Interpretation Abnormal (test code = 08167-0) [facility] 11:53:07 Test Item Value Reference Range Interpretation Comments MAGNESIUM (test code = 5692507565) 1.9 mg/dL 1.7-2.4 Lab Interpretation (test code = Normal 86843-5) [facility] (NA, K, CL, CO2, GLUCOSE, BUN, CREATININE, CA)2022-12-15 11:53:07 Test Item Value Reference Range Interpretation Comments NA (test code = 139 mmol/L 135-145 4544754383) K (test code = 3.6 mmol/L 3.5-5.0 7411264515) CL (test code = 104 mmol/L 98-108 5268521379) CO2 TOTAL (test code = 19 mmol/L 23-31 L 1845500043) AGAP (test code = 16 2-16 8538363846) BUN (test code = 41 mg/dL 7-23 H 3284497123) GLUCOSE (test code = 85 mg/dL 70-110 0017839213) CREATININE (test code = 3.85 mg/dL 0.50-1.04 H 5774818516) CALCIUM (test code = 8.9 mg/dL 8.6-10.6 2828171896) eGFR (test code = 11.7 mL/min/1.73m2 1199484321) BRAD (test code = BRAD) Association of [...] tests). Lab Interpretation Abnormal (test code = 82263-7) [facility] 11:53:07 Test Item Value Reference Range Interpretation Comments MAGNESIUM (test code = 4731409685) 1.9 mg/dL 1.7-2.4 Lab Interpretation (test code = Normal 58882-5) [facility] 11:52:47 Test Item Value Reference Range Interpretation Comments PHOSPHORUS (test code = 4698517968) 4.8 mg/dL 2.5-5.0 Lab Interpretation (test code = Normal 01720-2) [facility] 11:52:47 Test Item Value Reference Range Interpretation Comments PHOSPHORUS (test code = 2620937214) 4.8 mg/dL 2.5-5.0 Lab Interpretation (test code = Normal 27010-4) [facility] 11:52:06 Test Item Value Reference Range Interpretation Comments LIPASE (test code = 1568466862) 39 U/L 0-220 Lab Interpretation (test code = Normal 85920-9) [facility] 11:52:06 Test Item Value Reference Range Interpretation Comments LIPASE (test code = 5371091537) 39 U/L 0-220 Lab Interpretation (test code = Normal 09777-4) [facility] GLUCOSE (AUTOMATED)2022-12-15 10:44:05 Test Item Value Reference Range Interpretation Comments POCT GLU (test code = 1742134770) 95 mg/dL 70-110 Lab Interpretation (test code = Normal 05056-0) [facility] GLUCOSE (AUTOMATED)2022-12-15 10:44:05 Test Item Value Reference Range Interpretation Comments POCT GLU (test code = 8810590605) 95 mg/dL 70-110 Lab Interpretation (test code = Normal 65119-6) [facility] [id number] 07:17:20 Test Item Value Reference Range Interpretation Comments LACTIC ACID (test code = 1.81 mmol/L 0.50-2.20 7719403414) Lab Interpretation (test code = Normal 93849-7) [facility] Acid Whole [id number] 07:17:20 Test Item Value Reference Range Interpretation Comments LACTIC ACID (test code = 1.81 mmol/L 0.50-2.20 3008581927) Lab Interpretation (test code = Normal 80668-0) [facility] GLUCOSE (AUTOMATED)2022-12-15 05:00:50 Test Item Value Reference Range Interpretation Comments POCT GLU (test code = 8372184677) 122 mg/dL 70-110 H Lab Interpretation (test code = Abnormal 14007-9) [facility] GLUCOSE (AUTOMATED)2022-12-15 05:00:50 Test Item Value Reference Range Interpretation Comments POCT GLU (test code = 7824810456) 122 mg/dL 70-110 H Lab Interpretation (test code = Abnormal 72204-6) [facility] Test Item Value Reference Range Interpretation Comments MAGNESIUM (test code = 7757115575) 2.0 mg/dL 1.7-2.4 Lab Interpretation (test code = Normal 15312-3) [facility] 04[facility]26 Test Item Value Reference Range Interpretation Comments MAGNESIUM (test code = 2082934722) 2.0 mg/dL 1.7-2.4 Lab Interpretation (test code = Normal 69421-3) [facility] [id number] 00:09:11 Test Item Value Reference Range Interpretation Comments NT-proBNP (test code = 84023 pg/mL <=125 H 4602755562) BRAD (test code = BRAD) Biotin has been reported to cause a negative bias, interpret results relative to patient's use of biotin. Lab Interpretation (test Abnormal code = 14853-4) [id number] 00:09:11 Test Item Value Reference Range Interpretation Comments NT-proBNP (test code = 15701 pg/mL <=125 H 0711541598) BRAD (test code = BRAD) Biotin has been reported to cause a negative bias, interpret results relative to patient's use of biotin. Lab Interpretation (test Abnormal code = 02658-7) [facility] [id number] 23:53:13 Test Item Value Reference Range Interpretation Comments TROPONIN I (test code = 0.049 ng/mL <=0.034 H 3061862771) BRAD (test code = BRAD) Reference (Normal) [...] biotin. Lab Interpretation Abnormal (test code = 71686-8) [facility] [id number] 23:53:13 Test Item Value Reference Range Interpretation Comments TROPONIN I (test code = 0.049 ng/mL <=0.034 H 8812907482) BRAD (test code = BRAD) Reference (Normal) [...] biotin. Lab Interpretation Abnormal (test code = 64183-0) [facility]. METABOLIC PANEL (22801)2022-12-14 23:39:49 Test Item Value Reference Range Interpretation Comments NA (test code = 138 mmol/L 135-145 6523917350) K (test code = 3.3 mmol/L 3.5-5.0 L 8904639615) CL (test code = 100 mmol/L 98-108 8855361390) CO2 TOTAL (test code = 24 mmol/L 23-31 7758507936) AGAP (test code = 14 2-16 7494699984) BUN (test code = 34 mg/dL 7-23 H 0420031583) GLUCOSE (test code = 225 mg/dL 70-110 H 3183459311) CREATININE (test code = 3.54 mg/dL 0.50-1.04 H 3814164326) TOTAL BILI (test code = 0.9 mg/dL 0.1-1.2 3413595819) CALCIUM (test code = 9.3 mg/dL 8.6-10.6 2260373568) T PROTEIN (test code = 6.4 g/dL 6.3-8.2 2482894131) ALBUMIN (test code = 3.2 g/dL 3.5-5.0 L 1641590804) ALK PHOS (test code = 162 U/L 34-122 H 6915389219) ALTv (test code = 19 U/L 5-35 1742-6) AST(SGOT) (test code = 24 U/L 13-40 2602125157) eGFR (test code = 12.9 mL/min/1.73m2 5554727722) BRAD (test code = BRAD) Association of [...] tests). Lab Interpretation Abnormal (test code = 85377-0) [facility]. METABOLIC PANEL (34899)2022-12-14 23:39:49 Test Item Value Reference Range Interpretation Comments NA (test code = 138 mmol/L 135-145 1204090481) K (test code = 3.3 mmol/L 3.5-5.0 L 3140839589) CL (test code = 100 mmol/L 98-108 1834867840) CO2 TOTAL (test code = 24 mmol/L 23-31 5588968925) AGAP (test code = 14 2-16 8023461939) BUN (test code = 34 mg/dL 7-23 H 9586307245) GLUCOSE (test code = 225 mg/dL 70-110 H 5298693571) CREATININE (test code = 3.54 mg/dL 0.50-1.04 H 6168958956) TOTAL BILI (test code = 0.9 mg/dL 0.1-1.2 0309911125) CALCIUM (test code = 9.3 mg/dL 8.6-10.6 9877615502) T PROTEIN (test code = 6.4 g/dL 6.3-8.2 9317847737) ALBUMIN (test code = 3.2 g/dL 3.5-5.0 L 9204623512) ALK PHOS (test code = 162 U/L 34-122 H 3410019418) ALTv (test code = 19 U/L 5-35 1742-6) AST(SGOT) (test code = 24 U/L 13-40 0620960241) eGFR (test code = 12.9 mL/min/1.73m2 7072223545) BRAD (test code = BRAD) Association of [...] tests). Lab Interpretation Abnormal (test code = 73219-2) [facility] Test Item Value Reference Range Interpretation Comments LIPASE (test code = 2283929208) 414 U/L 0-220 H Lab Interpretation (test code = Abnormal 00988-9) [facility] 23:39:08 Test Item Value Reference Range Interpretation Comments LIPASE (test code = 4098165186) 414 U/L 0-220 H Lab Interpretation (test code = Abnormal 21781-3) [facility] [id number] 23:28:05 Test Item Value Reference Range Interpretation Comments WBC (test code = 14.88 See_Comment H [Automated 6690-2) message] The system which generated this result transmit matthew reference range : 4.30 - 11.10 10*3/?L. The reference range was not used to interpret this result as normal/abnormal . RBC (test code = 2.91 See_Comment L [Automated 789-8) message] The system which generated this result transmit matthew reference range : 3.93 - 5.25 10*6/?L. The reference range was not used to interpret this result as normal/abnormal . HGB (test code = 8.4 g/dL 11.6-15.0 L 718-7) HCT (test code = 26.3 % 35.7-45.2 L 4544-3) MCV (test code = 90.4 fL 80.6-95.5 787-2) MCH (test code = 28.9 pg 25.9-32.8 785-6) MCHC (test code = 31.9 g/dL 31.6-35.1 786-4) RDW-SD (test code = 50.1 fL 39.0-49.9 H 30859-4) RDW-CV (test code = 15.0 % 12.0-15.5 788-0) PLT (test code = 207 See_Comment [Automated 777-3) message] The system which generated this result transmit matthew reference range : 166 - 358 10*3/ ?L. The reference range was not u sed to interpret th is result as normal/abnormal . MPV (test code = 9.0 fL 9.5-12.9 L 32462-1) NRBC/100 WBC (test 0.0 See_Comment [Automat ed code = 3294682534) message] The system which generated this result transmit matthew reference range : 0.0 - 10.0 /100 WBCs. The reference range was not used to interpret this result as normal/abnormal . NRBC x10^3 (test code See_Comment [Auto mated = 5163563481) message] The system which generated this result transmit matthew reference range : 10*3/?L. The reference range was not used to interpret this result as normal/abnormal . GRAN MAT (NEUT) % 95.6 % (test code = 770-8) IMM GRAN % (test code 0.60 % = 5177575905) LYMPH % (test code = 1.9 % 736-9) MONO % (test code = 1.0 % 5905-5) EOS % (test code = 0.7 % 713-8) BASO % (test code = 0.2 % 706-2) GRAN MAT x10^3(ANC) 14.21 10*3/uL 1.88-7.09 H (test code = 9243423916) IMM GRAN x10^3 (test 0.09 10*3/uL 0.00-0.06 H code = 1340060179) LYMPH x10^3 (test code 0.29 10*3/uL 1.32-3.29 L = 731-0) MONO x10^3 (test code 0.15 10*3/uL 0.33-0.92 L = 742-7) EOS x10^3 (test code = 0.11 10*3/uL 0.03-0.39 711-2) BASO x10^3 (test code 0.03 10*3/uL 0.01-0.07 = 704-7) Lab Interpretation Abnormal (test code = 67494-1) [facility] WITH [id number] 23:28:05 Test Item Value Reference Range Interpretation Comments WBC (test code = 14.88 See_Comment H [Automated 6690-2) message] The system which generated this result transmit matthew reference range : 4.30 - 11.10 10*3/?L. The reference range was not used to interpret this result as normal/abnormal . RBC (test code = 2.91 See_Comment L [Automated 789-8) message] The system which generated this result transmit matthew reference range : 3.93 - 5.25 10*6/?L. The reference range was not used to interpret this result as normal/abnormal . HGB (test code = 8.4 g/dL 11.6-15.0 L 718-7) HCT (test code = 26.3 % 35.7-45.2 L 4544-3) MCV (test code = 90.4 fL 80.6-95.5 787-2) MCH (test code = 28.9 pg 25.9-32.8 785-6) MCHC (test code = 31.9 g/dL 31.6-35.1 786-4) RDW-SD (test code = 50.1 fL 39.0-49.9 H 11922-2) RDW-CV (test code = 15.0 % 12.0-15.5 788-0) PLT (test code = 207 See_Comment [Automated 777-3) message] The system which generated this result transmit matthew reference range : 166 - 358 10*3/ ?L. The reference range was not u sed to interpret th is result as normal/abnormal . MPV (test code = 9.0 fL 9.5-12.9 L 30875-8) NRBC/100 WBC (test 0.0 See_Comment [Automat ed code = 0195752830) message] The system which generated this result transmit matthew reference range : 0.0 - 10.0 /100 WBCs. The reference range was not used to interpret this result as normal/abnormal . NRBC x10^3 (test code See_Comment [Auto mated = 5990091621) message] The system which generated this result transmit matthew reference range : 10*3/?L. The reference range was not used to interpret this result as normal/abnormal . GRAN MAT (NEUT) % 95.6 % (test code = 770-8) IMM GRAN % (test code 0.60 % = 3431389855) LYMPH % (test code = 1.9 % 736-9) MONO % (test code = 1.0 % 5905-5) EOS % (test code = 0.7 % 713-8) BASO % (test code = 0.2 % 706-2) GRAN MAT x10^3(ANC) 14.21 10*3/uL 1.88-7.09 H (test code = 6879755308) IMM GRAN x10^3 (test 0.09 10*3/uL 0.00-0.06 H code = 2022877609) LYMPH x10^3 (test code 0.29 10*3/uL 1.32-3.29 L = 731-0) MONO x10^3 (test code 0.15 10*3/uL 0.33-0.92 L = 742-7) EOS x10^3 (test code = 0.11 10*3/uL 0.03-0.39 711-2) BASO x10^3 (test code 0.03 10*3/uL 0.01-0.07 = 704-7) Lab Interpretation Abnormal (test code = 55116-3) [facility] [id number] 22:59:07 Test Item Value Reference Range Interpretation Comments LACTIC ACID (test code = 1.80 mmol/L 0.50-2.20 3420251509) Lab Interpretation (test code = Normal 22515-8) [facility] Acid Whole [id number] 22:59:07 Test Item Value Reference Range Interpretation Comments LACTIC ACID (test code = 1.80 mmol/L 0.50-2.20 4350115896) Lab Interpretation (test code = Normal 66828-8) [facility] GLUCOSE (AUTOMATED)2022-12-14 22:56:50 Test Item Value Reference Range Interpretation Comments POCT GLU (test code = 9980469157) 235 mg/dL 70-110 H Lab Interpretation (test code = Abnormal 06589-7) [facility] GLUCOSE (AUTOMATED)2022-12-14 22:56:50 Test Item Value Reference Range Interpretation Comments POCT GLU (test code = 0315158371) 235 mg/dL 70-110 H Lab Interpretation (test code = Abnormal 12364-1) [facility] GLUCOSE (AUTOMATED)2022-11-07 21:58:54 Test Item Value Reference Range Interpretation Comments POCT GLU (test code = 6820749380) 184 mg/dL 70-110 H Lab Interpretation (test code = Abnormal 43849-4) [facility] GLUCOSE (AUTOMATED)2022-11-07 16:45:57 Test Item Value Reference Range Interpretation Comments POCT GLU (test code = 6072154769) 196 mg/dL 70-110 H Lab Interpretation (test code = Abnormal 96053-2) [facility] GLUCOSE (AUTOMATED)2022-11-07 13:12:51 Test Item Value Reference Range Interpretation Comments POCT GLU (test code = 4529375768) 164 mg/dL 70-110 H Lab Interpretation (test code = Abnormal 50403-1) [facility] Antibody (HBsAb)2022-11-06 23:00:28 Test Item Value Reference Range Interpretation Comments HBsAB (test code = Indeterminate 2771246102) HBsAb 6.20 mIU/mL Semi-Quantitative (test code = 8028232912) BRAD (test code = Unable to determine if BRAD) antibody to Hepatitis B Surface Antigen is present at levels consistent with immunity. ?Patient's immune status should be assessed with other clinical information and/or retesting in 4-6 weeks as clinically indicated. ?If any questions, please contact Clinical Chemistry Director cone winder at .Interpretati on: ?Hepatitis B Surface Antibody ? Negative - Patient is considered to be not immune to infection with HBV. ? ? Positive - Anti-HBs detected at greater than or equal to 12 mIU/mL. ?Patient is considered to be immune to infection with HBV. ? [facility] GLUCOSE (AUTOMATED)2022-11-06 21:40:13 Test Item Value Reference Range Interpretation Comments POCT GLU (test code = 7264003670) 180 mg/dL 70-110 H Lab Interpretation (test code = Abnormal 90104-9) [facility] B Surface Antigen (HBsAg)2022-11-06 20:40:07 Test Item Value Reference Range Interpretation Comments HBsAg Semi-Quantitative (test code = 0.21 Negative 5195-3) [facility] GLUCOSE (AUTOMATED)2022-11-06 16:28:02 Test Item Value Reference Range Interpretation Comments POCT GLU (test code = 6188279265) 177 mg/dL 70-110 H Lab Interpretation (test code = Abnormal 56341-4) [facility] [id number] 15:24:24 Test Item Value Reference Range Interpretation Comments TROPONIN I (test code = 0.047 ng/mL <=0.034 H 6235978261) BRAD (test code = BRAD) Reference (Normal) [...] biotin. Lab Interpretation Abnormal (test code = 59930-8) [facility] GLUCOSE (AUTOMATED)2022-11-06 12:43:24 Test Item Value Reference Range Interpretation Comments POCT GLU (test code = 9353672227) 158 mg/dL 70-110 H Lab Interpretation (test code = Abnormal 21696-7) [facility] GLUCOSE (AUTOMATED)2022-11-06 01:41:32 Test Item Value Reference Range Interpretation Comments POCT GLU (test code = 1250063400) 218 mg/dL 70-110 H Lab Interpretation (test code = Abnormal 61455-5) [facility] GLUCOSE (AUTOMATED)2022-11-05 22:03:11 Test Item Value Reference Range Interpretation Comments POCT GLU (test code = 8614516998) 156 mg/dL 70-110 H Lab Interpretation (test code = Abnormal 50323-6) [facility] GLUCOSE (AUTOMATED)2022-11-05 16:40:51 Test Item Value Reference Range Interpretation Comments POCT GLU (test code = 4277959347) 197 mg/dL 70-110 H Lab Interpretation (test code = Abnormal 64731-4) [facility] GLUCOSE (AUTOMATED)2022-11-05 12:59:19 Test Item Value Reference Range Interpretation Comments POCT GLU (test code = 1599480693) 126 mg/dL 70-110 H Lab Interpretation (test code = Abnormal 22080-1) [facility] [id number] 02:54:06 Test Item Value Reference Range Interpretation Comments TSH (test code = 2.59 See_Comment Biotin has been 3326432533) reported to cau se a negative bias, interpret resul ts relative to pat ient's use of biotin. [Automated mess age] The system [employer] generated this result transmitted ref erence range: 0.45 - 4 .70 mIU/L. The refe rence range was not u sed to interpret this result as normal/abnor mal. Lab Interpretation (test Normal code = 67303-5) [facility] [id number] 02:00:37 Test Item Value Reference Range Interpretation Comments FREE T4 (test code = 1.57 See_Comment [Autom ated message] 9117588732) The system [employer] generated this result transmitted ref erence range: 0.78 - 2 .20 ng/dL:. The ref erence range was not u sed to interpret this result as normal/abnor mal. Lab Interpretation (test Normal code = 89805-6) [facility] [id number] 02:00:17 Test Item Value Reference Range Interpretation Comments FREE T3 (test code = 0687847982) 3.61 pg/mL 2.77-5.27 Lab Interpretation (test code = Normal 51125-9) [facility] (A1C)2022-11-05 01:49:39 Test Item Value Reference Range Interpretation Comments HGB A1C (test code = 4.7 % 4.0-5.7 4548-4) BRAD (test code = BRAD) Reference RangesNormal: <5.7%Prediabetes: 5.7 - 6.4%Diabetes: > 6.5% Lab Interpretation (test Normal code = 36988-0) [facility] [id number] 21:11:09 Test Item Value Reference Range Interpretation Comments CK (test code = 3365010995) 24 U/L 33-194 L Lab Interpretation (test code = Abnormal 49006-7) [facility] [id number] 21:01:09 Test Item Value Reference Range Interpretation Comments NT-proBNP (test code = 58148 pg/mL <=125 H 4132818590) BRAD (test code = BRAD) Biotin has been reported to cause a negative bias, interpret results relative to patient's use of biotin. Lab Interpretation (test Abnormal code = 99974-1) [facility] [id number] 20:42:28 Test Item Value Reference Range Interpretation Comments TROPONIN I (test code = 0.054 ng/mL <=0.034 H 5837557176) BRAD (test code = BRAD) Reference (Normal) [...] biotin. Lab Interpretation Abnormal (test code = 49354-2) [facility]. METABOLIC PANEL (98038)2022-11-04 20:32:09 Test Item Value Reference Range Interpretation Comments NA (test code = 138 mmol/L 135-145 4197243348) K (test code = 3.0 mmol/L 3.5-5.0 L 2592841856) CL (test code = 106 mmol/L 98-108 7733971591) CO2 TOTAL (test code = 26 mmol/L 23-31 1320969478) AGAP (test code = 6 2-16 8839502391) BUN (test code = 18 mg/dL 7-23 1500417909) GLUCOSE (test code = 119 mg/dL 70-110 H 3335385184) CREATININE (test code = 2.18 mg/dL 0.50-1.04 H 7459901586) TOTAL BILI (test code = 0.6 mg/dL 0.1-1.9 4638354970) CALCIUM (test code = 9.2 mg/dL 8.6-10.6 6730230616) T PROTEIN (test code = 5.9 g/dL 6.3-8.2 L 1124871330) ALBUMIN (test code = 3.1 g/dL 3.5-5.0 L 4073984830) ALK PHOS (test code = 124 U/L 34-122 H 5188040346) ALTv (test code = 16 U/L 5-35 1742-6) AST(SGOT) (test code = 18 U/L 13-40 3089268721) eGFR (test code = 22.6 mL/min/1.73m2 7726346230) BRAD (test code = BRAD) Association of [...] tests). Lab Interpretation Abnormal (test code = 64600-9) [facility] 20:32:09 Test Item Value Reference Range Interpretation Comments MAGNESIUM (test code = 1274827749) 2.1 mg/dL 1.7-2.4 Lab Interpretation (test code = Normal 56375-4) [facility]23-[facility]29 20:31:49 Test Item Value Reference Range Interpretation Comments PHOSPHORUS (test code = 0637358995) 3.7 mg/dL 2.5-5.0 Lab Interpretation (test code = Normal 34241-5) [facility] WITH [id number] 20:19:25 Test Item Value Reference Range Interpretation [...] (test code = 57.7 fL 39.0-49.9 H 64243-2) RDW-CV (test code = 16.7 % 12.0-15.5 H 788-0) PLT (test code = 235 See_Comment [Automated 777-3) message] The sy stem which generated this result transmitted reference range : 166 - 358 10*3/ ?L. The reference r chikis was not used to interpret this result as normal/abnormal . MPV (test code = 9.2 fL 9.5-12.9 L 14521-6) NRBC/100 WBC (test 0.0 See_Comment [Automat ed code = 3648352610) message] The system which generated this result transmitted reference range : 0.0 - 10.0 /100 WBCs. The refer ence range was not u sed to interpret th is result as normal/abnormal . NRBC x10^3 (test code See_Comment [Auto mated = 2087006932) message] The s ystem which generated this result transmitted reference range : 10*3/?L. The reference range was not used to interpret this result as normal/abnormal . GRAN MAT (NEUT) % 74.2 % (test code = 770-8) IMM GRAN % (test code 0.30 % = 5143895100) LYMPH % (test code = 12.4 % 736-9) MONO % (test code = 9.1 % 5905-5) EOS % (test code = 3.6 % 713-8) BASO % (test code = 0.4 % 706-2) GRAN MAT x10^3(ANC) 4.97 10*3/uL 1.88-7.09 (test code = 6432725821) IMM GRAN x10^3 (test 0.00-0.06 code = 6056241877) LYMPH x10^3 (test code 0.83 10*3/uL 1.32-3.29 L = 731-0) MONO x10^3 (test code 0.61 10*3/uL 0.33-0.92 = 742-7) EOS x10^3 (test code = 0.24 10*3/uL 0.03-0.39 711-2) BASO x10^3 (test code 0.03 10*3/uL 0.01-0.07 = 704-7) Lab Interpretation Abnormal (test code = 09587-8) [facility] [id number] 15:54:00 Test Item Value Reference Range Interpretation Comments GLUCOSE BEDSIDE (test 122 MG/DL 70-110 H Perfor med by certified code = GLUBED) 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[facility] GLUCOSE [id number] 12:13:00 Test Item Value Reference Range Interpretation Comments GLUCOSE BEDSIDE (test 156 MG/DL 70-110 H Perfor med by certified code = GLUBED) 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[facility] GLUCOSE [id number] 10:42:00 Test Item Value Reference Range Interpretation Comments GLUCOSE BEDSIDE (test 181 MG/DL 70-110 H Perfor med by certified code = GLUBED) 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[facility] GLUCOSE [id number] 20:05:00 Test Item Value Reference Range Interpretation Comments GLUCOSE BEDSIDE (test 90 MG/DL 70-110 N Perfor med by certified code = GLUBED) 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[facility] GLUCOSE [id number] 15:46:00 Test Item Value Reference Range Interpretation Comments GLUCOSE BEDSIDE (test 212 MG/DL 70-110 H Perfor med by certified code = GLUBED) 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[facility] GLUCOSE [id number] 12:44:00 Test Item Value Reference Range Interpretation Comments GLUCOSE BEDSIDE (test 120 MG/DL 70-110 H Perfor med by certified code = GLUBED) 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[facility] BASIC METABOLIC [id number] 08:34:00 Test Item Value Reference Range Interpretation [...] code = 9.5 mg/dL 8.0-10.5 N CA) [id number] 08:34:00 Test Item Value Reference Range Interpretation Comments PHOSPHOROUS (test code = PHOS) 2.3 MG/DL 2.5-4.9 L [id number] 08:34:00 Test Item Value Reference Range Interpretation Comments MAGNESIUM (test code = MAG) 2.18 mg/dL 1.80-2.40 N [id number] 08:29:00 Test Item Value Reference Range Interpretation Comments VANCOMYCIN (test code = VANCO) 20.2 mcg/mL CBC W/AUTO [id number] 08:27:00 Test Item Value Reference Range Interpretation [...] REQUIRED (test code NO = MDIFF) CALCIUM [id number] 08:20:00 Test Item Value Reference Range Interpretation Comments CALCIUM IONIZED (test code = AMILCAR) 1.21 MMOL/L 1.09-1.30 N GLUCOSE [id number] 05:39:00 Test Item Value Reference Range Interpretation Comments GLUCOSE BEDSIDE (test 175 MG/DL 70-110 H Perfor med by certified code = GLUBED) 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[facility] GLUCOSE [id number] 20:49:00 Test Item Value Reference Range Interpretation Comments GLUCOSE BEDSIDE (test 167 MG/DL 70-110 H Perfor med by certified code = GLUBED) 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[facility] GLUCOSE [id number] 17:03:00 Test Item Value Reference Range Interpretation Comments GLUCOSE BEDSIDE (test 127 MG/DL 70-110 H Perfor med by certified code = GLUBED) 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[facility] GLUCOSE [id number] 11:54:00 Test Item Value Reference Range Interpretation Comments GLUCOSE BEDSIDE (test 177 MG/DL 70-110 H Perfor med by certified code = GLUBED) 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[facility] GLUCOSE [id number] 06:39:00 Test Item Value Reference Range Interpretation Comments GLUCOSE BEDSIDE (test 153 MG/DL 70-110 H Perfor med by certified code = GLUBED) 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[facility] GLUCOSE [id number] 19:51:00 Test Item Value Reference Range Interpretation Comments GLUCOSE BEDSIDE (test 165 MG/DL 70-110 H Perfor med by certified code = GLUBED) 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[facility] GLUCOSE [id number] 17:15:00 Test Item Value Reference Range Interpretation Comments GLUCOSE BEDSIDE (test 188 MG/DL 70-110 H Perfor med by certified code = GLUBED) 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[facility] GLUCOSE [id number] 12:16:00 Test Item Value Reference Range Interpretation Comments GLUCOSE BEDSIDE (test 132 MG/DL 70-110 H Perfor med by certified code = GLUBED) 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[facility] GLUCOSE [id number] 10:20:00 Test Item Value Reference Range Interpretation Comments GLUCOSE BEDSIDE (test 131 MG/DL 70-110 H Perfor med by certified code = GLUBED) 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[facility] CBC W/AUTO [id number] 08:33:00 Test Item Value Reference Range Interpretation [...] (test code NO = MDIFF) BASIC METABOLIC [id number] 07:37:00 Test Item Value Reference Range Interpretation [...] code = 10.1 mg/dL 8.0-10.5 N CA) [id number] 07:37:00 Test Item Value Reference Range Interpretation Comments PHOSPHOROUS (test code = PHOS) 3.4 MG/DL 2.5-4.9 N [id number] 07:37:00 Test Item Value Reference Range Interpretation Comments MAGNESIUM (test code = MAG) 2.31 mg/dL 1.80-2.40 [id number] 06:49:00 Test Item Value Reference Range Interpretation Comments VANCOMYCIN (test code = VANCO) 19.9 mcg/mL GLUCOSE [id number] 06:17:00 Test Item Value Reference Range Interpretation Comments GLUCOSE BEDSIDE (test 173 MG/DL 70-110 H Perfor med by certified code = GLUBED) 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[facility] - NM BONE 3 [id number] 00:00:00 [facility] 1955 Sex: F FAX: Delmy Howell [phone] [place]: St: ADM FAX: Kasey Ochoa MD [phone] FAX: Jim Mazariegos MD [phone] FAX: Adonis Canchola MD [phone] Name: MESERET MOTTA [facility] Laura Hernandez : 1955 Age/S: 67/F [address] [place] [address] Unit #: [id number] Loc: G.4404 [place] [address] Phys: Kasey Mendez MD Acct: [id number] Dis Date: Status: ADM IN PHONE #: [phone] Exam Date: 2 1506 FAX #: [phone] Reason: left foot ulcers EXAMS: CPT CODE: [id number] NM BONE 3 PHASE [id number] INFORMATION: Exam: NM Bone and/or Joint, 3 Phase Exam date and time: 07/04/2022 3:05 PM Age: 67 years old Clinical indication: Other: Left foot ulcers TECHNIQUE: Imaging protocol: Three phasebone scan of the feet is performed using 25 mCi of technetium 99m-MDP, which is administered intravenously. Radiopharmaceutical: 25 mCi Tc-99m HDP (Oxidronate), IV. Other technique: IV Site: Right hand; IV Site: Angiographic imaging was performed in the frontal plane immediately after radiotracer administration at 5 seconds/frame for 60 seconds. IV Site: Small field of view static imaging of the feetwere then performed for blood pool imaging in [...] 1 Signed Report (CONTINUED) FAX: Delmy Howell [phone] [place]: St: ADM FAX: Kasey Ochoa MD [phone] FAX: Jim Mazariegos MD [phone] FAX: Adonis Canchola MD [phone] Name: MESERET MOTTA [facility] : 1955 Age/S: 67/F [address] [place] [address] Unit #: [id number] Loc: [address] [address] Phys: Kasey Mendez MD Acct: [id number] Dis Date: Status: ADM IN PHONE #: [phone] Exam Date: 07/04/2022 1506 FAX #: [phone] Reason: left foot ulcers EXAMS: CPT CODE: [id number] NM BONE 3 PHASE 29426 (Continued) noted on the left foot plain radiographs. at 1850 Reported and signed by: Gus Moura M.D. CC: Delmy Ashton MD; Kasey Mendez MD; Jim Dhillon MD; Adonis Gaytan MD Technologist: NITA Daniel (N)(CT); ... 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[facility] GLUCOSE [id number] 15:58:00 Test Item Value Reference Range Interpretation Comments GLUCOSE BEDSIDE (test 131 MG/DL 70-110 H Perfor med by certified code = GLUBED) 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[facility] GLUCOSE [id number] 11:38:00 Test Item Value Reference Range Interpretation Comments GLUCOSE BEDSIDE (test 202 MG/DL 70-110 H Perfor med by certified code = GLUBED) 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[facility] BASIC METABOLIC [id number] 08:17:00 Test Item Value Reference Range Interpretation [...] 9.2 mg/dL 8.0-10.5 N CA) CBC W/AUTO [id number] 07:54:00 Test Item Value Reference Range Interpretation [...] REQUIRED (test code NO = MDIFF) GLUCOSE [id number] 05:40:00 Test Item Value Reference Range Interpretation Comments GLUCOSE BEDSIDE (test 170 MG/DL 70-110 H Perfor med by certified code = GLUBED) 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[facility] GLUCOSE [id number] 19:15:00 Test Item Value Reference Range Interpretation Comments GLUCOSE BEDSIDE (test 154 MG/DL 70-110 H Perfor med by certified code = GLUBED) 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[facility] GLUCOSE [id number] 17:40:00 Test Item Value Reference Range Interpretation Comments GLUCOSE BEDSIDE (test 134 MG/DL 70-110 H Perfor med by certified code = GLUBED) 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[facility] GLUCOSE [id number] 11:39:00 Test Item Value Reference Range Interpretation Comments GLUCOSE BEDSIDE (test 156 MG/DL 70-110 H Perfor med by certified code = GLUBED) 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[facility] GLUCOSE [id number] 08:37:00 Test Item Value Reference Range Interpretation Comments GLUCOSE BEDSIDE (test 222 MG/DL 70-110 H Perfor med by certified code = GLUBED) 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[facility] BASIC METABOLIC [id number] 06:58:00 Test Item Value Reference Range Interpretation [...] code = 9.0 mg/dL 8.0-10.5 N CA) [id number] 06:58:00 Test Item Value Reference Range Interpretation Comments PHOSPHOROUS (test code = PHOS) 3.0 MG/DL 2.5-4.9 [id number] 06:58:00 Test Item Value Reference Range Interpretation Comments MAGNESIUM (test code = MAG) 1.89 mg/dL 1.80-2.40 N CALCIUM [id number] 06:58:00 Test Item Value Reference Range Interpretation Comments CALCIUM IONIZED (test code = AMILCAR) 1.11 MMOL/L 1.09-1.30 N CBC W/AUTO [id number] 06:47:00 Test Item Value Reference Range Interpretation [...] REQUIRED (test code NO = MDIFF) GLUCOSE [id number] 21:27:00 Test Item Value Reference Range Interpretation Comments GLUCOSE BEDSIDE (test 224 MG/DL 70-110 H Perfor med by certified code = GLUBED) 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[facility] GLUCOSE [id number] 16:50:00 Test Item Value Reference Range Interpretation Comments GLUCOSE BEDSIDE (test 174 MG/DL 70-110 H Perfor med by certified code = GLUBED) 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[facility] BASIC METABOLIC [id number] 15:03:00 Test Item Value Reference Range Interpretation [...] mg/dL 8.0-10.5 N CA) POC ARTERIAL BLOOD [id number] 14:28:00 Test Item Value Reference Range Interpretation Comments POC ARTERIAL BLOOD GAS PH (test 7.343 7.35-7.45 L code = POCPHA) POC ARTERIAL BLOOD GAS PCO2 (test 47.7 mmHg 35.0-45 H code = GONAMD5Y) POC TCO2 ARTERIAL (test code = 27.4 POCTCO2) POC ARTERIAL BLOOD GAS PO2 (test 105.9 mmHg 80-100.0 H code = JTFNK8Q) POC HCO3 ARTERIAL (test code = 25.9 MMOL/L 22.0-26.0 N PQPABI4U) POC BASE EXCESS (test code = 0.2 MMOL/L -4.0-4.0 N POCBEA) POC O2 SATURATION (test code = 97.7 % 90-100 N POCO2S) BASIC METABOLIC [id number] 14:28:00 Test Item Value Reference Range Interpretation [...] = POCGLU) 188 MG/DL 70-110 H HEMOGLOBIN [id number] 14:28:00 Test Item Value Reference Range Interpretation Comments HEMOGLOBIN ABG (test code = 10.0 G/DL 11.0-15.0 L HGB/ABG) [id number] 14:28:00 Test Item Value Reference Range Interpretation Comments HEMATOCRIT (test code = HCT/ABG) 29 % 33.0-45.0 L POC LACTIC [id number] 14:28:00 Test Item Value Reference Range Interpretation Comments POC LACTIC ACID (test code = 1.3 mmol/l 0.9-1.7 N POCLAC) GLUCOSE [id number] 14:10:00 Test Item Value Reference Range Interpretation Comments GLUCOSE BEDSIDE (test 182 MG/DL 70-110 H Perfor med by certified code = GLUBED) 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[facility] GLUCOSE [id number] 10:38:00 Test Item Value Reference Range Interpretation Comments GLUCOSE BEDSIDE (test 251 MG/DL 70-110 H Perfor med by certified code = GLUBED) 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[facility] [id number] 08:07:00 Test Item Value Reference Range Interpretation Comments VANCOMYCIN (test code = VANCO) 22.4 mcg/mL COMMENTS: 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 CREATININE (test 4.7 mg/dL 0.6-1.3 H code = CREAT) CALCIUM (test code = 9.7 mg/dL 8.0-10.5 N CA) [id number] 07:58:00 Test Item Value Reference Range Interpretation Comments PHOSPHOROUS (test code = PHOS) 4.6 MG/DL 2.5-4.9 N [id number] 07:58:00 Test Item Value Reference Range Interpretation Comments MAGNESIUM (test code = MAG) 2.20 mg/dL 1.80-2.40 N CBC W/AUTO [id number] 07:39:00 Test Item Value Reference Range Interpretation [...] REQUIRED (test code NO = MDIFF) GLUCOSE [id number] 05:20:00 Test Item Value Reference Range Interpretation Comments GLUCOSE BEDSIDE (test 148 MG/DL 70-110 H Perfor med by certified code = GLUBED) 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[facility] - XR CHEST 1 [id number] 00:00:00 [facility] : 1955 Sex: F FAX: Delmy Howell [phone] [place]: St: ADM FAX: Serge Shetty MD FAX: Jim Mazariegos MD [phone] FAX: Adonis Canchola MD [phone] Name: MESERET MOTTA [facility] : 1955 Age/S: 67/F [address] [place] [address] Unit #: [id number] Loc: G.3307 [place] [address] Phys: Serge Shetty MDAcct: [id number] Dis Date: Status: ADM IN PHONE #: [phone] Exam Date: 07/01/20221536 FAX #: [phone] Reason: hypoxia EXAMS: CPT CODE: [id number] XR CHEST 1 V 39054 PROCEDURE INFORMATION: Exam: XR Chest Exam date [...] and/or atelectasis. El ectronically Signed by Amador Hernandez on 07/01/2022 at 1741 Reported and signed by: Sha Hernandez M.D. CC: Delmy Ashton MD; Serge Shetty MD; Jim Dhillon MD; Adonis Gaytan MD Technologist: RT Max(R) Trnscrd Date/Time/By: 07/01/2022 (1740) : By: [email or web address] Orig Print D/T: S: 07/01/2022 (1740) PAGE 1 Signed Report- US PELVIS [id number] 00:00:00 [facility] PATKathieMESERET : 1955 Sex: F Name: MESERET MOTTA [facility] : 1955 Age/S: 67 / F [address] [place] [address] Unit #: [id number] Loc: [place] [address] Phys: Adonis Gaytan MD Acct: [id number] Dis Date: Status: ADM IN PHONE #: [phone] Exam Date: 07/01/2022 1406 FAX #: [phone] Reason: DUB...2 weeks of bleedingafter 15 years of men EXAMS: CPT CODE: [id number] US PELVIS COMPLETE 81693 PROCEDURE INFORMATION: Exam: US Pelvis Complete, Transabdominal and US Pelvis, Transvaginal Exam date and time: 07/01/2022 1:27PM Age: 67 years old Clinical indication: Other: Post menopausal bleeding; Additional info: Dub. . () TECHNIQUE: Imaging protocol: Real-time complete transabdominal and transvaginal pelvic ultrasound with image documentation. Transvaginal imaging was used for better evaluation of the endometrium, adnexa, and/or cervix. COMPARISON: US DUP VEIN JARRETT 06/22/2022 10:54 AM FINDINGS: Limited exam Uterus: [...] Limited exam 1. Probable uterine fibroids. If furtherdelineation is desired, an MRI pelvis without and with IV contrast can be obtained. 2. Fluid in the e ndocervical canal of uncertain etiology, may be related to history of bleeding. 3. Ovaries not visualized. at 1433 Reported and signed by: Vladimir Moran M.D. CC: Delmy Ashton MD; Jim Dhillon MD; Adonis Gaytan MD Technologist: Karol Quinn RDMS(AB)(OB) Trnscb Date/Time: 07/01/2022 (1433) t.[email or web address].TTV Orig Print D/T: S: 07/01/2022 (7026) Probe: PAGE 1 Signed Report- US TRANSVAGINAL NON [id number] 00:00:00[facility] : 1955 Sex: F Name: MESERET MOTTA [facility] : 1955 Age/S: 67 / F [address] [place] [address] Blvd Unit #: [id number] Loc: [place] [address] Phys: Adonis Gaytan MD Acct: [id number] Dis Date: Status: ADM IN PHONE #: [phone] Exam Date: 07/01/2022 1407 FAX #: [phone] Reason: see US Pelvic Non OB Complete EXAMS: CPT CODE: [id number] [place] [address] PROCEDURE INFORMATION: Exam: US Pelvis Complete, Transabdominal and US Pelvis, Transvaginal Exam date and time: 07/01/2022 1:27 PM Age: 67 years old Clinical indication: Other: Post menopausal bleeding; Additional info: Dub. . () TECHNIQUE: Imaging protocol: Real-time complete transabdominal and transvaginal pelvic ultrasound with image docum entation. Transvaginal imaging was used for better evaluation of the endometrium, adnexa, and/or cervix. 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[facility] GLUCOSE [id number] 18:11:00 Test Item Value Reference Range Interpretation Comments GLUCOSE BEDSIDE (test 152 MG/DL 70-110 H Perfor med by certified code = GLUBED) 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[facility] GLUCOSE [id number] 13:24:00 Test Item Value Reference Range Interpretation Comments GLUCOSE BEDSIDE (test 120 MG/DL 70-110 H Perfor med by certified code = GLUBED) 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[facility] BASIC METABOLIC [id number] 09:03:00 Test Item Value Reference Range Interpretation [...] 9.6 mg/dL 8.0-10.5 N CA) CBC W/AUTO [id number] 07:48:00 Test Item Value Reference Range Interpretation [...] REQUIRED (test NO code = MDIFF) GLUCOSE [id number] 20:09:00 Test Item Value Reference Range Interpretation Comments GLUCOSE BEDSIDE (test 172 MG/DL 70-110 H Perfor med by certified code = GLUBED) 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[facility] GLUCOSE [id number] 15:48:00 Test Item Value Reference Range Interpretation Comments GLUCOSE BEDSIDE (test 108 MG/DL 70-110 N Perfor med by certified code = GLUBED) 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[facility] GLUCOSE [id number] 11:35:00 Test Item Value Reference Range Interpretation Comments GLUCOSE BEDSIDE (test 172 MG/DL 70-110 H Perfor med by certified code = GLUBED) 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[facility] GLUCOSE [id number] 08:25:00 Test Item Value Reference Range Interpretation Comments GLUCOSE BEDSIDE (test 186 MG/DL 70-110 H [facility] by certified code = GLUBED) 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[facility] BASIC METABOLIC [id number] 07:50:00 Test Item Value Reference Range Interpretation [...] code = 9.3 mg/dL 8.0-10.5 N CA) [id number] 07:50:00 Test Item Value Reference Range Interpretation Comments PHOSPHOROUS (test code = PHOS) 5.5 MG/DL 2.5-4.9 H [id number] 07:50:00 Test Item Value Reference Range Interpretation Comments MAGNESIUM (test code = MAG) 2.32 mg/dL 1.80-2.40 N CBC W/AUTO [id number] 07:28:00 Test Item Value Reference Range Interpretation [...] REQUIRED (test code NO = MDIFF) GLUCOSE [id number] 19:59:00 Test Item Value Reference Range Interpretation Comments GLUCOSE BEDSIDE (test 141 MG/DL 70-110 H Perfor med by certified code = GLUBED) 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[facility] GLUCOSE [id number] 18:58:00 Test Item Value Reference Range Interpretation Comments GLUCOSE BEDSIDE (test 156 MG/DL 70-110 H Perfor med by certified code = GLUBED) 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[facility] GLUCOSE [id number] 11:35:00 Test Item Value Reference Range Interpretation Comments GLUCOSE BEDSIDE (test 112 MG/DL 70-110 H Perfor med by certified code = GLUBED) 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[facility] GLUCOSE [id number] 09:19:00 Test Item Value Reference Range Interpretation Comments GLUCOSE BEDSIDE (test 167 MG/DL 70-110 H Perfor med by certified code = GLUBED) 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[facility] BASIC METABOLIC [id number] 08:14:00 Test Item Value Reference Range Interpretation [...] calculation forGFR is based on the CKD-EPI (202) calculat ion. This formulais race indifferent and is the recommended for bhumika for GFRby the [facility] for Adults.The GFR will not calculate if th e sex is unknown or if thepatient's ag e is <18 years. 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[facility] GLUCOSE [id number] 16:53:00 Test Item Value Reference Range Interpretation Comments GLUCOSE BEDSIDE (test 147 MG/DL 70-110 H Perfor med by certified code = GLUBED) 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[facility] GLUCOSE [id number] 15:43:00 Test Item Value Reference Range Interpretation Comments GLUCOSE BEDSIDE (test 154 MG/DL 70-110 H Perfor med by certified code = GLUBED) 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[facility] [id number] 14:34:00 Test Item Value Reference Range Interpretation Comments ACT-ISTAT (test code 281 SEC 74-137 H Perform ed by certified = ACTI) 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[facility] [id number] 08:42:00 Test Item Value Reference Range Interpretation Comments HGBA1C% (test code = HGBA1C%) 5.8 %A1C 4.8-6.0 N GLUCOSE [id number] 08:37:00 Test Item Value Reference Range Interpretation Comments GLUCOSE BEDSIDE (test 171 MG/DL 70-110 H Perfor med by certified code = GLUBED) 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[facility] CBC W/AUTO [id number] 08:24:00 Test Item Value Reference Range Interpretation [...] (test code NO = MDIFF) BASIC METABOLIC [id number] 07:56:00 Test Item Value Reference Range Interpretation [...] the recommended for bhumika for GFRby the [facility] Found[facility] on for Adults.The GFR will not calculate if th e sex is unknown or if thepatient's ag e is <18 years. CREATININE (test 4.9 mg/dL 0.6-1.3 H code = CREAT) CALCIUM (test code = 9.4 mg/dL 8.0-10.5 N CA) COAGULATION TIME [id number] 07:05:00 Test Item Value Reference Range Interpretation Comments COAGULATION TIME 245 SECONDS Performed b y ACTIVATED (test code = certi fied fur mixer operator ACT) at [facility] COAGULATION TIME [id number] 07:05:00 Test Item Value Reference Range Interpretation Comments COAGULATION TIME 234 SECONDS Performed b y ACTIVATED (test code = certi fied fur mixer operator ACT) at [facility] GLUCOSE [id number] 06:07:00 Test Item Value Reference Range Interpretation Comments GLUCOSE BEDSIDE (test 170 MG/DL 70-110 H Perfor med by certified code = GLUBED) 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[facility] GLUCOSE [id number] 19:40:00 Test Item Value Reference Range Interpretation Comments GLUCOSE BEDSIDE (test 143 MG/DL 70-110 H Perfor med by certified code = GLUBED) 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[facility] [id number] 17:22:00 Test Item Value Reference Range Interpretation Comments ACT-ISTAT (test code 275 SEC 74-137 H Perform ed by certified = ACTI) 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[facility] [id number] 16:11:00 Test Item Value Reference Range Interpretation Comments ACT-ISTAT (test code 251 SEC 74-137 H Perform ed by certified = ACTI) 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[facility] GLUCOSE [id number] 14:10:00 Test Item Value Reference Range Interpretation Comments GLUCOSE BEDSIDE (test 192 MG/DL 70-110 H Perfor med by certified code = GLUBED) 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[facility] GLUCOSE [id number] 11:52:00 Test Item Value Reference Range Interpretation Comments GLUCOSE BEDSIDE (test 215 MG/DL 70-110 H Perfor med by certified code = GLUBED) 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[facility] COVID 19 Asymptomatic IH [id number] 10:33:00 Test Item Value Reference Range Interpretation [...] moderate, high or waivedcomplexit y tests. GLUCOSE [id number] 08:19:00 Test Item Value Reference Range Interpretation Comments GLUCOSE BEDSIDE (test 220 MG/DL 70-110 H Perfor med by certified code = GLUBED) 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[facility] COMPREHENSIVE METABOLIC [id number] 07:53:00 Test Item Value Reference Range Interpretation [...] recommended for bhumika for [facility]by the [facility] [...] 20-125 H TOTAL (test code = ALKP) [id number] 07:53:00 Test Item Value Reference Range Interpretation Comments PHOSPHOROUS (test code = PHOS) 6.8 MG/DL 2.5-4.9 H [id number] 07:53:00 Test Item Value Reference Range Interpretation Comments MAGNESIUM (test code = MAG) 2.24 mg/dL 1.80-2.40 GLUCOSE [id number] 06:28:00 Test Item Value Reference Range Interpretation Comments GLUCOSE BEDSIDE (test 214 MG/DL 70-110 H Perfor med by certified code = GLUBED) 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[facility] CBC W/AUTO [id number] 05:40:00 Test Item Value Reference Range Interpretation [...] To be done morning of Heart CathRBC [id number] 05:40:00 Test Item Value Reference Range Interpretation Comments ANISOCYTOSIS (test code = ANISO) SLIGHT MACROCYTOSIS (test code = MACR) FEW COMMENTS: To be done morning of Heart Cath- XR FOOT 3 + V [id number] 00:00:00 [facility] : 1955 Sex: F FAX: Delmy Howell [phone] [place]: St: ADM FAX: Sybil Marques MD [phone] FAX: Jim Mazariegos MD [phone] Name: MESERET MOTTA [facility] : 1955 Age/S: 67/F [address] [place] [address] Unit #: [id number] Loc: G.4421 [place] [address] Phys: Sybil Byers MD Acct: [id number] DisDate: Status: ADM IN PHONE #: [phone] Exam Date: 06/25/2022 1610 FAX #: [phone] Reason: L foot ulcers EXAMS: CPT CODE: [id number] XR FOOT 3 + V LT [address]7979 PROCEDURE INFORMATION: Exam: XR Left Foot Exam date and time: 06/25/2022 3:37 PM Age: 67 years old Clinical indication: Other: L foot ulcersTECHNIQUE: Imaging protocol: Radiologic exam of the Left foot. Views: 3 or more views. AP Oblique Lateral COMPARISON: US DUP VEIN JARRETT 06/22/2022 10:54 AM FINDINGS: Bones/joints: See "Soft tissues" finding. Soft tissues: Soft tissue swelling is seen about the left foot and ankle. Moderate calcaneal spurring at the Achilles tendon and plantar fascia tendon insertion sites. There appears to be prior deformity of the mid shaft to head of the left 1st proximal phalanx. Mild degenerative changes about theleft 1st interphalangeal joint and slight degenerative changes [...] Byers MD; Jim Dhillon MD Technologist: RT Gabbi(Estevan) Trnscrd Date/Time/By: 06/26/2022 (08) : By: [email or web address] Orig Print D/T: S: 06/26/2022 (0898) PAGE 1 Signed ReportGLUCOSE [id number] 19:44:00 Test Item Value Reference Range Interpretation Comments GLUCOSE BEDSIDE (test 198 MG/DL 70-110 H Perfor med by certified code = GLUBED) 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[facility] GLUCOSE [id number] 16:13:00 Test Item Value Reference Range Interpretation Comments GLUCOSE BEDSIDE (test 189 MG/DL 70-110 H Perfor med by certified code = GLUBED) 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[facility] GLUCOSE [id number] 11:12:00 Test Item Value Reference Range Interpretation Comments GLUCOSE BEDSIDE (test 186 MG/DL 70-110 H Perfor med by certified code = GLUBED) 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[facility] CBC W/AUTO [id number] 10:49:00 Test Item Value Reference Range Interpretation [...] MDIFF) COMMENTS: Daily while on HeparinCOMPREHENSIVE METABOLIC [id number] 07:37:00 Test Item Value Reference Range Interpretation [...] recommended for bhumika [facility] the [facility] [...] H TOTAL (test code = ALKP) GLUCOSE [id number] 05:53:00 Test Item Value Reference Range Interpretation Comments GLUCOSE BEDSIDE (test 159 MG/DL 70-110 H Perfor med by certified code = GLUBED) 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[facility] GLUCOSE [id number] 19:09:00 Test Item Value Reference Range Interpretation Comments GLUCOSE BEDSIDE (test 171 MG/DL 70-110 H Perfor med by certified code = GLUBED) 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[facility] GLUCOSE [id number] 15:56:00 Test Item Value Reference Range Interpretation Comments GLUCOSE BEDSIDE (test 159 MG/DL 70-110 H Perfor med by certified code = GLUBED) 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[facility] GLUCOSE [id number] 12:56:00 Test Item Value Reference Range Interpretation Comments GLUCOSE BEDSIDE (test 110 MG/DL 70-110 N Perfor med by certified code = GLUBED) 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[facility] ACUTE HEPATITIS [id number] 12:08:00 Test Item Value Reference Range Interpretation Comments AB HEPATITIS A IGM (test NON REACTIVE INDEX NON REACT. code = HAVMAB) AG HEPATITIS B SURFACE NON REACTIVE INDEX NonReactive (test code = HBSAG) AB HEPATITIS B CORE IGM NON REACTIVE INDEX NON REACT. (test code = HBCMAB) AB HEPATITIS C (test code NON REACTIVE INDEX NON REACT. = HCVAB) AB HEPATITIS B [id number] 12:08:00 Test Item Value Reference Range Interpretation Comments AB HEPATITIS B 11.7 mIU/mL See_Comment Verified by repeat SURFACE (test code = analysi s Status of HBSAB) Immunity Anti-H Bs Level --- I nconsis tent with Immun ity 0.0 - 9.9Consistent with Immunity >9.9Pe rformed At: [facility]ekslcl[address] [place], [place] [id number] Kota Loera MD Ph:[phone] [Automated mess age] The system Zenedy generated this result transmitted ref erence range: Immunity >9.9. The reference r chikis was not used to interpret this result as normal/abnor mal. BASIC METABOLIC [id number] 08:08:00 Test Item Value Reference Range Interpretation [...] code = 9.9 mg/dL 8.0-10.5 N CA) [id number] 08:08:00 Test Item Value Reference Range Interpretation Comments PHOSPHOROUS (test code = PHOS) 7.1 MG/DL 2.5-4.9 H [id number] 08:08:00 Test Item Value Reference Range Interpretation Comments MAGNESIUM (test code = MAG) 2.64 mg/dL 1.80-2.40 H CBC W/AUTO [id number] 07:09:00 Test Item Value Reference Range Interpretation [...] = MDIFF) COMMENTS: Daily while on HeparinGLUCOSE [id number] 05:45:00 Test Item Value Reference Range Interpretation Comments GLUCOSE BEDSIDE (test 190 MG/DL 70-110 H Perfor med by certified code = GLUBED) 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[facility] GLUCOSE [id number] 19:34:00 Test Item Value Reference Range Interpretation Comments GLUCOSE BEDSIDE (test 159 MG/DL 70-110 H Perfor med by certified code = GLUBED) 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[facility] GLUCOSE [id number] 17:04:00 Test Item Value Reference Range Interpretation Comments GLUCOSE BEDSIDE (test 167 MG/DL 70-110 H Perfor med by certified code = GLUBED) 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[facility] UA RFLX MICR CULT IF [id number] 16:38:00 Test Item Value Reference Range Interpretation [...] for culture: Gross HematuriaSpecimen Description: CLEAN CATCHGLUCOSE [id number] 12:14:00 Test Item Value Reference Range Interpretation Comments GLUCOSE BEDSIDE (test 147 MG/DL 70-110 H Perfor med by certified code = GLUBED) 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[facility] THROMBOPLASTIN TIME [id number] 11:46:00 Test Item Value Reference Range Interpretation Comments THROMBOPLASTIN TIME 72.0 Seconds 25.0-39.5 H Therape utic Range: PARTIAL (test code = 50.4 - 88.3 Seconds PTT) Effective 10/22/2018 GLUCOSE [id number] 06:01:00 Test Item Value Reference Range Interpretation Comments GLUCOSE BEDSIDE (test 246 MG/DL 70-110 H Perfor med by certified code = GLUBED) 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[facility] THROMBOPLASTIN TIME [id number] 05:17:00 Test Item Value Reference Range Interpretation Comments THROMBOPLASTIN TIME 53.5 Seconds 25.0-39.5 H Therape utic Range: PARTIAL (test code = 50.4 - 88.3 Seconds PTT) Effective 10/22/2018 CBC W/AUTO [id number] 04:16:00 Test Item Value Reference Range Interpretation [...] Daily while on Heparin- CT CHEST W/O [id number] 00:00:00 [facility] 1955 Sex: F Name: MESERET MOTTA [facility] : 1955 Age/S: 67 / F [address] [facility] Unit #: [id number] Loc: [place] [address] Phys: Aleja Funk Acct: [id number] Dis Date: Status: ADM IN PHONE #: [phone] Exam Date: 06/22/2022954 FAX #: [phone] Reason: Dyspnea, CAD EXAMS: CPT CODE: [id number] CT CHEST W/O CONTRAST 56303 PROCEDURE INFORMATION: Exam: CT Chest Without Contrast; [...] lung bases are atelectatic. Pleural spaces: There ailyn new small left pleural effusion. The small [...] wall edema. PAGE 1 SignedReport (CONTINUED) Name: HUBERT MOTTACA Walter [facility] : 1955 Age/S: 67 / F [address] [place] [address] Unit #: [id number] Loc: [place] [address] Phys: Aleja Funk Acct: [id number] DisDate: Status: ADM IN PHONE #: [phone] Exam Date: 06/22/2022 0996 FAX #: [phone] Reason: Dyspnea, CAD EXAMS: CPT CODE: [id number] CT CHEST W/O CONTRAST 66420 (Continued) 4. There is a small pericardial effusion, slightly increased in size compared to prior study. 5. There is a small amount of ascites in the visualized abdomen. at 0904 Reported and signed by: Jim Uriostegui M.D. CC: Delmy Ashton MD; Jim Dhillon MD; Aleja OROZCO Technologist:Abdiel Trevino, RT(R)(CT) CTDI: DLP: Trnscb Date/Time: 06/23/2022 (903) [id number] Orig Print D/T: S: 06/23/2022 (903) PAGE 2 Signed Report GLUCOSE [id number] 22:01:00 Test Item Value Reference Range Interpretation Comments GLUCOSE BEDSIDE (test 186 MG/DL 70-110 H Perfor med by certified code = GLUBED) 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[facility] THROMBOPLASTIN TIME [id number] 21:11:00 Test Item Value Reference Range Interpretation Comments THROMBOPLASTIN TIME 51.2 Seconds 25.0-39.5 H Therape utic Range: PARTIAL (test code = 50.4 - 88.3 Seconds PTT) Effective 10/22/2018 GLUCOSE [id number] 18:42:00 Test Item Value Reference Range Interpretation Comments GLUCOSE BEDSIDE (test 125 MG/DL 70-110 H Perfor med by certified code = GLUBED) 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[facility] THROMBOPLASTIN TIME [id number] 13:02:00 Test Item Value Reference Range Interpretation Comments THROMBOPLASTIN TIME 40.0 Seconds 25.0-39.5 H Therape utic Range: PARTIAL (test code = 50.4 - 88.3 Seconds PTT) Effective 10/22/2018 PTH INTACT [id number] 12:41:00 Test Item Value Reference Range Interpretation Comments PARATHYROID HORMONE INTACT (test 661.2 pg/mL 14.0-72.0 H code = PARAI) B-TYPE NATRIURETIC [id number] 12:23:00 Test Item Value Reference Range Interpretation Comments B-TYPE NATRIURETIC PEPTIDE (test 557.0 PG/ML 0-100 H code = BNP) PROTHROMBIN [id number] 12:06:00 Test Item Value Reference Range Interpretation [...] (to prevent recurrent infar ct). 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[facility] THROMBOPLASTIN TIME [id number] 01:28:00 Test Item Value Reference Range Interpretation Comments THROMBOPLASTIN TIME 30.3 Seconds 25.0-39.5 N Therape utic Range: PARTIAL (test code = 50.4 - 88.3 Seconds PTT) Effective 10/22/2018 COMMENTS: DRAW PTT 6 HOURS AFTER INITIATION OF HEPARIN- DUP VEIN [id number] 00:00:00[facility] PATKathieMESERET : 1955 Sex: F Name: MESERET MOTTA [facility] : 1955 Age/S: 67 / F [address] [place] [address] Blvd Unit #: [id number] Loc: [place] [address] Phys: Aleja Funk Acct: [id number] Dis Date: Status: ADM IN PHONE #: [phone] Exam Date: 06/22/2022 1510 FAX #: [phone] Reason: Vein mapping for CABG EXAMS: CPT CODE: [id number] DUP VEIN JARRETT 07742 PROCEDURE INFORMATION: Exam: US Duplex Lower Extremity [...] mapping. COMPARISON: US DOP ART SGL LEVEL JARRETT 06/22/2022 10:42 AM FINDINGS: Right superficial veins: Normal Doppler waveforms. Normal compressibility. Greater saphenous vein is patent. Right greater saphenous vein-upper thigh: 4.9 mm Right greater saphenous vein-mid thigh: 6.7 mm Right greater saphenous vein-lower thigh: 5.6 mm Right greater saphenous vein-upper le.9 mm Right greater saphenous vein-mid le.4 mm Right greater saphenous vein-lower le mm Left superficial veins: NormalDoppler waveforms. Normal compressibility. Greater saphenous vein is [...] Glenn Obando M.D. CC: Delmy Ashton MD; Jimbo Dhillon MD; Aleja OROZCO Technologist: Monty Thomas Trnscb Date/Time: 06/22/2022 (1729) t.SDR.AB53 Orig Print D/T: S: 06/22/2022 (1729) Probe: PAGE 1 Signed Report- DOP ART SGL LEVEL [id number] 00:00:00 [facility] : 1955 Sex: F Name: MESERET MOTTA [facility] : 1955 Age/S: 67 / F [address] [place] [address] Blvd Unit #: [id number] Loc: [place] [address] Phys: Aleja Funk Acct: [id number] Dis Date: Status: ADM IN PHONE #: [phone] Exam Date: 06/22/2022 1509 FAX #: [phone] Reason: PVD EXAMS: CPT CODE:[id number] [facility] ART SGL LEVEL JARRETT 69240 PROCEDURE INFORMATION: Exam: US Duplex Lower Extremity Arteries Exam date and time: 06/22/2022 10:42 AM Age: 67 years old Clinical indication: Condition or disease; Peripheral vascular disease; Additional info: Pvd TECHNIQUE: Imaging protocol: Real-time ultrasound scan of the arteries of the bilateral lower extremities with 2-D solis scale, color Doppler flow and spectral waveform analysis. Images documented and saved. COMPARISON: No relevant prior studies available. FINDINGS: Right common femoral artery: No occlusion or significant stenosis. Normal waveform. Right superficial femoral artery: No occlusion or significant stenosis. Normal waveform. Right popliteal artery: No occlusion or significant stenosis. Normal waveform. Right calf/foot arteries: The right posterior tibialis artery demonstrates areas of occlusion versus significant stenosis. The dorsalispedis arteries patent. Left common femoral artery: No occlusion or significant stenosis. Normal waveform. Left superficial femoral artery: No occlusion or significant stenosis. Normal waveform. Left pop liteal artery: No occlusion or significant stenosis. Normal waveform. Left calf/foot arteries: Monophasic waveforms in the tibial arteries. IMPRESSION: 1. The ankle brachial indices cannot be calculated. 2. Severe peripheral arterial disease in the right lower extremity with occlusion versus significant stenosis of the right posterior tibialis artery. 3. Severe peripheral arterial disease in the leftlower extremity with monophasic waveforms in the tibial arteries. at 1655 Reported and signed by: Jim Uriostegui M.D. PAGE 1 Signed Report (CONTINUED) Name: MESERET MOTTA [facility] : 1955 Age/S: 67 / F [address] [place] [address] Unit #: [id number] Loc: [place] [address] Phys: Aleja Funk Acct: [id number] Dis Date: Status: ADM IN PHONE #: [phone] Exam Date: 06/22/2022 1509 FAX #: [phone] Reason: PVD EXAMS: CPT CODE: [id number] DOP ART SGL LEVEL JARRETT 09001 (Continued) CC: Delmy Ashton MD; Jim Dhillon MD; Aleja OROZCO Technologist: Monty Thomas Trnmtb Date/Time: (1654) t.ROSALINER.MR72 Orig Print D/T: S: 06/22/2022 (1654) Probe: PAGE 2 Signed Report- DUP EXTRACRANIAL [id number] 00:00:00 [facility] : 1955 Sex: F Name: MESERET MOTTA [facility] Laura Hernandez : 1955 Age/S: 67 / F [address] [facility] [address] Unit #: [id number] Loc: [place] [address] Phys: Aleja Funk Acct: [id number] Dis Date: Status: ADM IN PHONE #: [phone] Exam Date: 06/22/2022 1505 FAX #: [phone] Reason: CABG workup EXAMS: CPTCODE: [id number] DUP EXTRACRANIAL JARRETT 19691 PROCEDURE INFORMATION: Exam: US Duplex Bilateral Extracranial [...] are normal. Right internal carotid artery: Plaque fo rmation. No occlusion or stenosis. Waveforms are normal. [...] Villar M.D.PAGE 1 Signed Report (CONTINUED) Name: MESERET MOTTA [facility] : 1955 Age/S: 67 / F [address] [place] [address] Blvd Unit #: [id number] Loc: [place] [address] Phys: Aleja Funk Acct: [id number] Dis Date: Status: ADM IN PHONE #: [phone] Exam Date: 06/22/2022 1509 FAX #: [phone] Reason: CABG workup EXAMS: CPT CODE: [id number] DUP EXTRACRANIAL JARRETT 84587 (Continued) CC: Kerry Ashton MD; Jim Dhillon MD; Aleja OROZCO Technologist: Monty Thomas Trnmtb Date/Time: 06/22/2022 (1806) t.SDR.TDO Orig Print D/T: S: 06/22/2022 (1807) Probe: PAGE 2 Signed ReportGLUCOSE [id number] 20:43:00 Test Item Value Reference Range Interpretation Comments GLUCOSE BEDSIDE (test 226 MG/DL 70-110 H Perfor med by certified code = GLUBED) 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[facility] CBC W/AUTO [id number] 20:20:00 Test Item Value Reference Range Interpretation [...] NOT ALREADY DONE WITHIN LAST 24 HOURSGLUCOSE [id number] 18:45:00 Test Item Value Reference Range Interpretation Comments GLUCOSE BEDSIDE (test 168 MG/DL 70-110 H Perfor med by certified code = GLUBED) 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[facility] PROTHROMBIN [id number] 18:42:00 Test Item Value Reference Range Interpretation [...] ALKP) COMMENTS: If not already done in [facility] [id number] 16:16:00 Test Item Value Reference Range Interpretation Comments POC glucose (test 89 mg/dL 65-99 Door Operator N desire: Rubin code = 52511-5) EricDevice I D: [id number] able: RN Notified [facility] [id number] 16:16:00 Test Item Value Reference Range Interpretation Comments POC glucose (test 89 mg/dL 65-99 Door Operator N desire: Rubin code = 81594-7) [employer] I D: [id number] able: RN Notified [facility] [id number] 16:16:00 Test Item Value Reference Range Interpretation Comments POC glucose (test 89 mg/dL 65-99 Door Operator N desire: Rubin code = 49743-8) EricDevice I D: [id number] able: RN Notified [facility]2022-10-19 16:16:00 Test Item Value Reference Range Interpretation Comments POC glucose (test 89 mg/dL 65-99 Door Operator N desire: Rubin code = 23659-4) Eric[employer] I D: [id number] able: RN Notified [facility] [id number] 16:16:00 Test Item Value Reference Range Interpretation Comments POC glucose (test 89 mg/dL 65-99 Door Operator N desire: Rubin code = 36349-8) Eric[employer] I D: [id number] able: RN Notified [facility] [id number] 16:16:00 Test Item Value Reference Range Interpretation Comments POC glucose (test 89 mg/dL 65-99 Door Operator N desire: Rubin code = 26263-9) [employer] I D: [id number] able: RN Notified [facility] [id number] 16:16:00 Test Item Value Reference Range Interpretation Comments POC glucose (test 89 mg/dL 65-99 Door Operator N desire: Rubin code = 49876-7) [employer] I D: [id number] able: RN Notified [facility] [id number] 16:16:00 Test Item Value Reference Range Interpretation Comments POC glucose (test 89 mg/dL 65-99 Door Operator N desire: Rubin code = 37583-5) Eric[employer] I D: [id number] able: RN Notified [facility] [id number] 16:16:00 Test Item Value Reference Range Interpretation Comments POC glucose (test 89 mg/dL 65-99 Door Operator N desire: Rubin code = 03422-2) Eric[employer] I D: [id number] able: RN Notified [facility] [id number] 16:16:00 Test Item Value Reference Range Interpretation Comments POC glucose (test 89 mg/dL 65-99 Door Operator N desire: Rubin code = 14438-1) EricDevice I D: [id number] able: RN Notified [facility] [id number] 16:16:00 Test Item Value Reference Range Interpretation Comments POC glucose (test 89 mg/dL 65-99 Door Operator N desire: Rubin code = 56014-0) Angelina Ingram: [id number] able: RN Notified [facility]2022-10-19 13:03:01 Test Item Value Reference Range Interpretation Comments POC sodium (test code = 140 mmol/L 605-545 2466-0) POC potassium (test code 3.9 mmol/L 3.5-5.0 = 6298-4) POC glucose (test code = 78 mg/dL 65-99 2339-0) POC creatinine (test 4.6 mg/dl 0.5-0.9 H Operato r Name: code = 07380-5) Marko kyle ID: [id number] POC hemoglobin (test 8.5 g/dL 12.0-16.0 L code = 718-7) POC hematocrit (test 25 % 37-47 L code = 4544-3) Lab Interpretation (test Abnormal code = 27330-5) [facility]2022-10-19 13:03:01 Test Item Value Reference Range Interpretation Comments POC sodium (test code = 140 mmol/L 197-585 4507-0) POC potassium (test code 3.9 mmol/L 3.5-5.0 = 6298-4) POC glucose (test code = 78 mg/dL 65-99 2339-0) POC creatinine (test 4.6 mg/dl 0.5-0.9 H Operato r Name: code = 51157-0) Marko kyle ID: [id number] POC hemoglobin (test 8.5 g/dL 12.0-16.0 L code = 718-7) POC hematocrit (test 25 % 37-47 L code = 4544-3) Lab Interpretation (test Abnormal code = 13530-2) [facility]2022-10-19 13:03:01 Test Item Value Reference Range Interpretation Comments POC sodium (test code = 140 mmol/L 661-295 9887-0) POC potassium (test code 3.9 mmol/L 3.5-5.0 = 6298-4) POC glucose (test code = 78 mg/dL 65-99 2339-0) POC creatinine (test 4.6 mg/dl 0.5-0.9 H Operato r Name: code = 17032-9) Marko kyle ID: [id number] POC hemoglobin (test 8.5 g/dL 12.0-16.0 L code = 718-7) POC hematocrit (test 25 % 37-47 L code = 4544-3) Lab Interpretation (test Abnormal code = 99792-9) [facility]2022-10-19 13:03:01 Test Item Value Reference Range Interpretation Comments POC sodium (test code = 140 mmol/L 022-628 5924-0) POC potassium (test code 3.9 mmol/L 3.5-5.0 = 6298-4) POC glucose (test code = 78 mg/dL 65-99 2339-0) POC creatinine (test 4.6 mg/dl 0.5-0.9 H Operato r Name: code = 87928-2) Marko kyle ID: [id number] POC hemoglobin (test 8.5 g/dL 12.0-16.0 L code = 718-7) POC hematocrit (test 25 % 37-47 L code = 4544-3) Lab Interpretation (test Abnormal code = 72244-4) [facility]2022-10-19 13:03:01 Test Item Value Reference Range Interpretation Comments POC sodium (test code = 140 mmol/L 953-829 0857-0) POC potassium (test code 3.9 mmol/L 3.5-5.0 = 6298-4) POC glucose (test code = 78 mg/dL 65-99 2339-0) POC creatinine (test 4.6 mg/dl 0.5-0.9 H Operato r Name: code = 39639-4) Marko kyle ID: [id number] POC hemoglobin (test 8.5 g/dL 12.0-16.0 L code = 718-7) POC hematocrit (test 25 % 37-47 L code = 4544-3) Lab Interpretation (test Abnormal code = 35792-1) [facility]2022-10-19 13:03:01 Test Item Value Reference Range Interpretation Comments POC sodium (test code = 140 mmol/L 730-160 9750-0) POC potassium (test code 3.9 mmol/L 3.5-5.0 = 6298-4) POC glucose (test code = 78 mg/dL 65-99 2339-0) POC creatinine (test 4.6 mg/dl 0.5-0.9 H Operato r Name: code = 96767-9) Marko kyle ID: [id number] POC hemoglobin (test 8.5 g/dL 12.0-16.0 L code = 718-7) POC hematocrit (test 25 % 37-47 L code = 4544-3) Lab Interpretation (test Abnormal code = 36639-1) [facility]2022-10-19 13:03:01 Test Item Value Reference Range Interpretation Comments POC sodium (test code = 140 mmol/L 592-350 3747-0) POC potassium (test code 3.9 mmol/L 3.5-5.0 = 6298-4) POC glucose (test code = 78 mg/dL 65-99 2339-0) POC creatinine (test 4.6 mg/dl 0.5-0.9 H Operato r Name: code = 21982-7) Marko kyle ID: [id number] POC hemoglobin (test 8.5 g/dL 12.0-16.0 L code = 718-7) POC hematocrit (test 25 % 37-47 L code = 4544-3) Lab Interpretation (test Abnormal code = 78754-5) [facility]2022-10-19 13:03:01 Test Item Value Reference Range Interpretation Comments POC sodium (test code = 140 mmol/L 655-802 5930-0) POC potassium (test code 3.9 mmol/L 3.5-5.0 = 6298-4) POC glucose (test code = 78 mg/dL 65-99 2339-0) POC creatinine (test 4.6 mg/dl 0.5-0.9 H Operato r Name: code = 59202-4) Marko kyle ID: [id number] POC hemoglobin (test 8.5 g/dL 12.0-16.0 L code = 718-7) POC hematocrit (test 25 % 37-47 L code = 4544-3) Lab Interpretation (test Abnormal code = 53444-1) [facility]2022-10-19 13:03:01 Test Item Value Reference Range Interpretation Comments POC sodium (test code = 140 mmol/L 892-447 6146-0) POC potassium (test code 3.9 mmol/L 3.5-5.0 = 6298-4) POC glucose (test code = 78 mg/dL 65-99 2339-0) POC creatinine (test 4.6 mg/dl 0.5-0.9 H Operato r Name: code = 45479-9) Zhu Madhav kyle ID: [id number] POC hemoglobin (test 8.5 g/dL 12.0-16.0 L code = 718-7) POC hematocrit (test 25 % 37-47 L code = 4544-3) Lab Interpretation (test Abnormal code = 48159-4) [facility]2022-10-19 13:03:01 Test Item Value Reference Range Interpretation Comments POC sodium (test code = 140 mmol/L 623-683 6916-0) POC potassium (test code 3.9 mmol/L 3.5-5.0 = 6298-4) POC glucose (test code = 78 mg/dL 65-99 2339-0) POC creatinine (test 4.6 mg/dl 0.5-0.9 H Operato r Name: code = 06257-2) Zhu Madhav kyle ID: [id number] POC hemoglobin (test 8.5 g/dL 12.0-16.0 L code = 718-7) POC hematocrit (test 25 % 37-47 L code = 4544-3) Lab Interpretation (test Abnormal code = 62892-3) [facility]2022-10-19 13:03:01 Test Item Value Reference Range Interpretation Comments POC sodium (test code = 140 mmol/L 406-732 1549-0) POC potassium (test code 3.9 mmol/L 3.5-5.0 = 6298-4) POC glucose (test code = 78 mg/dL 65-99 2339-0) POC creatinine (test 4.6 mg/dl 0.5-0.9 H Operato r Name: code = 88800-9) Zhu Madhav kyle ID: [id number] POC hemoglobin (test 8.5 g/dL 12.0-16.0 L code = 718-7) POC hematocrit (test 25 % 37-47 L code = 4544-3) Lab Interpretation (test Abnormal code = 33867-7) [facility] [id number] 13:03:00 Test Item Value Reference Range Interpretation Comments Estimated GFR (test mL/min/1.73 m2 A Caterg ory Units code = 30002-5) Interpretati onG1 >=90 Normal or highG 2 60-89 Mildly decrease dG3a 45-59 Mildly to moderately decr szxhgE0u 30-44 Moderatel y to severely decrea sedG4 15-29 Severely decreasedG5 <15 Kidney failureThe eGFR was calculated usin g the Chronic Kidney Disease Epidemiology Collaboration ( CKD-EPI) equation. Interpretation is based on recommendati ons of the [facility] Disease Outcome s Quality Initiat hermes ([facility]) pub lished in 2013. Lab Interpretation Abnormal (test code = 11976-7) [facility] [id number] 13:03:00 Test Item Value Reference Range Interpretation Comments Estimated GFR (test 9 mL/min/1.73 m2 A Caterg ory Units code = 03904-7) Interpretati onG1 >=90 Normal or highG 2 60-89 Mildly decrease dG3a 45-59 Mildly to moderately decr xwbfaX5m 30-44 Moderatel y to severely decrea sedG4 15-29 Severely decreasedG5 <15 Kidney failureThe eGFR was calculated usin g the Chronic Kidney Disease Epidemiology Collaboration ( CKD-EPI) equation. Interpretation is based on recommendati ons of the [facility] Disease Outcome s Quality Initiat hermes (NK-KDOQI) pub lished in 2013. Lab Interpretation Abnormal (test code = 28760-4) [facility] [id number] 13:03:00 Test Item Value Reference Range Interpretation Comments Estimated GFR (test 9 mL/min/1.73 m2 A Caterg ory Units code = 37579-2) Interpretati onG1 >=90 Normal or highG 2 60-89 Mildly decrease dG3a 45-59 Mildly to moderately decr tdetnH3x 30-44 Moderate ly to severely decrea sedG4 15-29 Severely decreasedG5 <15 Kidney failureThe eGFR was calculated usin g the Chronic Kidney Disease Epidemiology Collaboration ( CKD-EPI) equation. Interpretation is based on recommendati ons of the [facility] Disease Outcome s Quality Initiat hermes (NK-KDOQI) pub lished in 2013. Lab Interpretation Abnormal (test code = 79070-2) [facility] [id number] 13:03:00 Test Item Value Reference Range Interpretation Comments Estimated GFR (test 9 mL/min/1.73 m2 A Caterg ory Units code = 82017-6) Interpretati onG1 >=90 Normal or highG 2 60-89 Mildly decrease dG3a 45-59 Mildly to moderately decr slxbtJ0l 30-44 Moderatel y to severely decrea sedG4 15-29 Severely decreasedG5 <15 Kidney failureThe eGFR was calculated usin g the Chronic Kidney Disease Epidemiology Collaboration ( CKD-EPI) equation. Interpretation is based on recommendati ons of the [facility] Disease Outcome s Quality Initiat hermes ([facility]-KDOQI) pub lished in 2013. Lab Interpretation Abnormal (test code = 45919-4) [facility] [id number] 13:03:00 Test Item Value Reference Range Interpretation Comments Estimated GFR (test 9 mL/min/1.73 m2 A Caterg ory Units code = 10733-3) Interpretati onG1 >=90 Normal or highG 2 60-89 Mildly decrease dG3a 45-59 Mildly to moderately decr cwemkM9i 30-44 Moderatel y to severely decrea sedG4 15-29 Severely decreasedG5 <15 Kidney failureThe eGFR was calculated usin g the Chronic Kidney Disease Epidemiology Collaboration ( CKD-EPI) equation. Interpretation is based on recommendati ons of the [facility] Disease Outcome s Quality Initiat hermes ([facility]-KDOQI) pub lished in 2013. Lab Interpretation Abnormal (test code = 47690-7) [facility] [id number] 13:03:00 Test Item Value Reference Range Interpretation Comments Estimated GFR (test 9 mL/min/1.73 m2 A Caterg ory Units code = 11459-0) Interpretati onG1 >=90 Normal or highG 2 60-89 Mildly decrease dG3a 45-59 Mildly to moderately decr gkmdhS4g 30-44 Moderatel y to severely decrea sedG4 15-29 Severely decreasedG5 <15 Kidney failureThe eGFR was calculated usin g the Chronic Kidney Disease Epidemiology Collaboration ( CKD-EPI) equation. Interpretation is based on recommendati ons of the [facility] Disease Outcome s Quality Initiat hermes ([facility]-KDO[facility]) pub lished in 2013. Lab Interpretation Abnormal (test code = 47535-0) [facility] [id number] 13:03:00 Test Item Value Reference Range Interpretation Comments Estimated GFR (test 9 mL/min/1.73 m2 A Caterg ory Units code = 88170-6) Interpretati onG1 >=90 Normal or highG 2 60-89 Mildly decrease dG3a 45-59 Mildly to moderately decr zcokgX1a 30-44 Moderatel y to severely decrea sedG4 15-29 Severely decreasedG5 <15 Kidney failureThe eGFR was calculated usin g the Chronic Kidney Disease Epidemiology Collaboration ( CKD-EPI) equation. Interpretation is based on recommendati ons of the [facility] Disease Outcome s Quality Initiat hermes ([facility]) pub lished in 2013. Lab Interpretation Abnormal (test code = 99763-9) [facility] [id number] 13:03:00 Test Item Value Reference Range Interpretation Comments Estimated GFR (test 9 mL/min/1.73 m2 A Caterg ory Units code = 22401-1) Interpretati onG1 >=90 Normal or highG 2 60-89 Mildly decrease dG3a 45-59 Mildly to moderately decr dsiilD9e 30-44 Moderate ly to severely decrea sedG4 15-29 Severely decreasedG5 <15 Kidney failureThe eGFR was calculated usin g the Chronic Kidney Disease Epidemiology Collaboration ( CKD-EPI) equation. Interpretation is based on recommendati ons of the [facility] Disease Outcome s Quality Initiat hermes (NK-KDOQI) pub lished in 2013. Lab Interpretation Abnormal (test code = 35429-2) [facility] [id number] 13:03:00 Test Item Value Reference Range Interpretation Comments Estimated GFR (test 9 mL/min/1.73 m2 A Caterg ory Units code = 96260-9) Interpretati onG1 >=90 Normal or highG 2 60-89 Mildly decrease dG3a 45-59 Mildly to moderately decr lzohkN6b 30-44 Moderatel y to severely decrea sedG4 15-29 Severely decreasedG5 <15 Kidney failureThe eGFR was calculated usin g the Chronic Kidney Disease Epidemiology Collaboration ( CKD-EPI) equation. Interpretation is based on recommendati ons of the [facility] Disease Outcome s Quality Initiat hermes ([facility]) pub lished in 2013. Lab Interpretation Abnormal (test code = 01648-7) [facility] [id number] 13:03:00 Test Item Value Reference Range Interpretation Comments Estimated GFR (test 9 mL/min/1.73 m2 A Caterg ory Units code = 17480-3) Interpretati onG1 >=90 Normal or highG 2 60-89 Mildly decrease dG3a 45-59 Mildly to moderately decr oinsuE4k 30-44 Moderatel y to severely decrea sedG4 15-29 Severely decreasedG5 <15 Kidney failureThe eGFR was calculated usin g the Chronic Kidney Disease Epidemiology Collaboration ( CKD-EPI) equation. Interpretation is based on recommendati ons of the [facility] Disease Outcome s Quality Initiat hermes ([facility]) pub lished in 2013. Lab Interpretation Abnormal (test code = 12436-9) [facility] [id number] 13:03:00 Test Item Value Reference Range Interpretation Comments Estimated GFR (test 9 mL/min/1.73 m2 A Caterg ory Units code = 75109-0) Interpretati onG1 >=90 Normal or highG 2 60-89 Mildly decrease dG3a 45-59 Mildly to moderately decr szqcfQ9d 30-44 Moderatel y to severely decrea sedG4 15-29 Severely decreasedG5 <15 Kidney failureThe eGFR was calculated usin g the Chronic Kidney Disease Epidemiology Collaboration ( CKD-EPI) equation. Interpretation is based on recommendati ons of the [facility] Disease Outcome s Quality Initiat hermes ([facility]) pub lished in 2013. Lab Interpretation Abnormal (test code = 02568-9) [facility] [id number] 19:03:18 Test Item Value Reference Range Interpretation Comments Case number (test code = [id number]) Surgical pathology See link below for report (test code = PDF Lab Report 2255) Result status (test code This is Final Report = [id number]) for [id number] [place] [address] pathology [id number] 19:03:18 Test Item Value Reference Range Interpretation Comments Case number (test code = [id number]) Surgical pathology See link below for report (test code = PDF Lab Report 2255) Result status (test code This is Final Report = [id number]) for [address] pathology [id number] 19:03:18 Test Item Value Reference Range Interpretation Comments Case number (test code = [id number]) Surgical pathology See link below for report (test code = PDF Lab Report 2255) Result status (test code This is Final Report = [id number]) for [address] pathology [id number] 19:03:18 Test Item Value Reference Range Interpretation Comments Case number (test code = [id number]) Surgical pathology See link below for report (test code = PDF Lab Report 2255) Result status (test code This is Final Report = [id number]) for [address] pathology [id number] 19:03:18 Test Item Value Reference Range Interpretation Comments Case number (test code = [id number]) Surgical pathology See link below for report (test code = PDF Lab Report 2255) Result status (test code This is Final Report = 8523271) for [address] pathology [id number] 19:03:18 Test Item Value Reference Range Interpretation Comments Case number (test code = [id number]) Surgical pathology See link below for report (test code = PDF Lab Report 2255) Result status (test code This is Final Report = [id number]) for [address] pathology [id number] 19:03:18 Test Item Value Reference Range Interpretation Comments Case number (test code = [id number]) Surgical pathology See link below for report (test code = PDF Lab Report 2255) Result status (test code This is Final Report = 5003048) for [address] pathology [id number] 19:03:18 Test Item Value Reference Range Interpretation Comments Case number (test code = [id number]) Surgical pathology See link below for report (test code = PDF Lab Report 2255) Result status (test code This is Final Report = 0942565) for [id number] [facility] pathology [id number] 19:03:18 Test Item Value Reference Range Interpretation Comments Case number (test code = [id number]) Surgical pathology See link below for report (test code = PDF Lab Report 2255) Result status (test code This is Final Report = 3311764) for [id number] [facility] pathology [id number] 19:03:18 Test Item Value Reference Range Interpretation Comments Case number (test code = [id number]) Surgical pathology See link below for report (test code = PDF Lab Report 2255) Result status (test code This is Final Report = [id number]) for [id number] [facility] pathology [id number] 19:03:18 Test Item Value Reference Range Interpretation Comments Case number (test code = [id number]) Surgical pathology See link below for report (test code = PDF Lab Report 2255) Result status (test code This is Final Report = [id number]) for [id number] [facility] Pre/Post [id number] 10:49:53 Test Item Value Reference Range Interpretation Comments Ventricular rate (test code = 253) Atrial rate (test code = 255) DC interval (test code = 266) QRSD interval [...] inversion now evident in Inferior leads- [facility] Pre/Post [id number] 10:49:53 Test Item Value Reference Range Interpretation Comments Ventricular rate (test 101 code = 253) Atrial rate (test code 101 = 255) DC interval (test code 160 = 266) QRSD [...] inversion now evident in Inferior leads- [facility] Pre/Post [id number] 10:49:53 Test Item Value Reference Range Interpretation Comments Ventricular rate (test 101 code = 253) Atrial rate (test code 101 = 255) DC interval (test code 160 = 266) QRSD [...] inversion now evident in Inferior leads- [facility] Pre/Post [id number] 10:49:53 Test Item Value Reference Range Interpretation Comments Ventricular rate (test 101 code = 253) Atrial rate (test code 101 = 255) DC interval (test code 160 = 266) QRSD [...] inversion now evident in Inferior leads- [facility] Pre/Post [id number] 10:49:53 Test Item Value Reference Range Interpretation Comments Ventricular rate (test 101 code = 253) Atrial rate (test code 101 = 255) DC interval (test code 160 = 266) QRSD [...] inversion now evident in Inferior leads- [facility] Pre/Post [id number] 10:49:53 Test Item Value Reference Range Interpretation Comments Ventricular rate (test 101 code = 253) Atrial rate (test code 101 = 255) DC interval (test code 160 = 266) QRSD [...] inversion now evident in Inferior leads- [facility] Pre/Post [id number] 10:49:53 Test Item Value Reference Range Interpretation Comments Ventricular rate (test 101 code = 253) Atrial rate (test code 101 = 255) DC interval (test code 160 = 266) QRSD [...] inversion now evident in Inferior leads- [facility] Pre/Post [id number] 10:49:53 Test Item Value Reference Range Interpretation Comments Ventricular rate (test 101 code = 253) Atrial rate (test code 101 = 255) DC interval (test code 160 = 266) QRSD [...] inversion now evident in Inferior leads- [facility] Pre/Post [id number] 10:49:53 Test Item Value Reference Range Interpretation Comments Ventricular rate (test 101 code = 253) Atrial rate (test code 101 = 255) DC interval (test code 160 = 266) QRSD [...] inversion now evident in Inferior leads- [facility] Pre/Post [id number] 10:49:53 Test Item Value Reference Range Interpretation Comments Ventricular rate (test 101 code = 253) Atrial rate (test code 101 = 255) DC interval (test code 160 = 266) QRSD [...] wave inversion now evident in Inferior leads- [facility] GLUCOSE (AUTOMATED)2020-10-14 12:45:50 Test Item Value Reference Range Interpretation Comments POCT GLU (test code = 3262345156) 255 mg/dL 70-110 H Lab Interpretation (test code = Abnormal 96050-5) [facility] [id number] 12:35:00 Test Item Value Reference Range Interpretation Comments POCT Glu (age>30days) (test code = 255 mg/dL 70-110 A 3342) Lab Interpretation (test code = Abnormal 11841-7) [facility] [Presence] in Respiratory specimen by JUANY with probe [id number] 01:15:19 Test Item Value Reference Range Interpretation Comments SARS-CoV-2 (COVID-19) RNA Not detected Not-Detected [Presence] in Respiratory specimen by JUANY with probe detection (test code = 42517-3) [facility] [id number] 12:03:00 Test Item Value Reference Range Interpretation Comments POCT Glu (age>30days) (test code = 142 mg/dL 70-110 A 3342) Lab Interpretation (test code = Abnormal 78026-1) [facility] [Presence] in Respiratory specimen by JUANY with probe [id number] 18:03:16 Test Item Value Reference Range Interpretation Comments SARS-CoV-2 (COVID-19) RNA Not detected Not-Detected [Presence] in Respiratory specimen by JUANY with probe detection (test code = 82309-8) [facility] Notes Date/Time Note Provider Source 2022-07-11 13:52:00-00:00 [facility] ([facility]) Rehab Progress Note REPORT#:[id number] REPORT STATUS: Signed DATE:07/11/22 TIME: 1352 PATIENT: MESERET MOTTA UNIT #: [id number] ROOM/BED: [place] [address] : 56 AGE: 67 SEX: F ATTEND: Adonis Gaytan MD ADM AUTHOR: Lisa Vega NP * ALL edits or amendments must be made on the Summay/computer document * Subjective Chief complaint: rehab follow-up feeling good denies dizziness or sob NAD Denies TABARES/N/V/D/CP 14 systems reviewed and neg. except that above. Objective General VS: PATIENT WEIGHT: Weight (lb): 245 Weight (oz): 9.52 Weight (kg): 111.13 Physical Exam General appearance: alert, awake Psych: alert, oriented x 3 HEENT: anicteric, mucosal membranes moist Neck: supple, no JVD Cardiovascular: regular rate rhythm, no murmur Respiratory: aerating well, clear bilaterally Abdomen: bowel sounds present, non-distended, so ft, non-tender Skin: BLE and hand multi wounds Ulcer: Type/cause: diabetic, arterial Location: foot (bilateral toes) Musculoskeletal - general: Musculoskeletal - general: swelling (BLE), MMT BUE +3/5 BLE HF -3/5 KE +3/5 Neuro/SURGICAL SPECIALIST: sensory deficit ( decrease BLE), alert, oriented X 3, CNII-XII intact, normal speech Genitourinary: Diagnosis, Assessment Plan Free Text A P: 67-year-old female with weakness and impaired mo bility 2/2 cardiac myopathy positive for NSTEMI Multivessel CAD, acute on ch ronic diastolic heart failure -End-stage renal disease on hemodialysis -Severe PVD-(s/p MORPHOLOGIST and ath erectomy with CSI followed by MORPHOLOGIST with TAVR balloon on left anterior and posterior tibial artery. CT O of right anterior/posterior tibial artery) -Uremic Neuropathy -Uremic Myopathy -Generalized weakness -Impaired mobility, gait, balance, ADLs, and end urance -Acute hypoxemia resp failure -Acute on chronic diastolic HF -Diabetes type 2 with hyperglycemia -Hypertension -COPD -Multiple wounds on feet and hands Plan: Continue supportive and preventative care Wound care team is following wound care manageme nt Continue PT/OT Out of bed to chair Work on ADLs, strength, bed mobility, transfers, gait DVT prophylaxis on SCD Strict fall and safety precautions Monitor p.o. intake and nutrition Strict decubitus precautions Monitor labs Wound care on outsole caser labs Advance therapies as tolerated. Insurance denied IRF Pending insurance approval for SNF Pt has made god progress with therapy Total time was 35 minutes > 50% with patient per forming physical examination, discussing plan of care, goals, therapies, progr ess, medications, labs. All questions answered Consultants: cardiology, cardiovascular surgery, nephrology, wound care Rehab attestation: Face to face exam completed. Treatment plan disc ussed with patient. at 1354 RPT #:[id number] END OF REPORT 2022-07-09 07:51:00-00:00 [facility] ([facility]) Hospitalist Discharge Summary REPORT#:[id number] REPORT STATUS: Signed DATE:07/09/22 TIME: 750 PATIENT: MESERET MOTTA UNIT #: [id number] ROOM/BED: 4404-1 : 56 AGE: 67 SEX: F ATTEND: Adonis Gaytan MD ADM AUTHOR: Adonis Gaytan MD * ALL edits or amendments must be made on the Summay/computer document * General Information Discharge date: 07/07/22 Discharge diagnosis: CAD Hospital course: 67 YO female with PMHx of HTN, DM, CHF, ESRD on HD who initially presented at [facility] with SOB and fatigue. Sh regan was treated for NSTEMI and acute CHF exacerbation. 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 She is transferred her for CABG nataly luation. Echo showed LVEF 50%. CVS was consulted for possible CABG. [facility], Recommend attempt PCI. Cardiology was consulted. Patient had PCI of her circumflex and will need elective LAD PCI at a l ater date. LE arterial doppler - severe PAD Pt is s/p MORPHOLOGIST a nd atherectomy with CSI followed by MORPHOLOGIST with TAVR ita martínez on left anterior and posterior tibial artery. Patient also had ORE ROASTER of righ t anterior/posterior tibial artery- will need staged intervention at a later date Wound care is following for management of multip le bowel ulcers on bilateral feet and hands. Wound cultures with rare Enteroc occus growth. ID was also consulted for cellulitis of of her legs. Patient was treated with Vanc in the hospital. Bone scan was negative for osteomyelit is. Pulmonary was consulted for acute respiratory failure due to pulmononary edema. TANKAGE SUPERVISOR was consulted for dyf unctional uterine bleeding. Pelvis ultrasound showed fibroids but pt will need outpt f/u and endometr ial biopsy. Nephology was consulted for dialysis support. Rehab was consulted, but insurance denied both r ehab and SNF and pt went home with home health on 07/07 to f/u asn an outpt for PCI of her LAD and the right lower extremity and outpt f/u for her vaginal bl eeding Consultants: cardiology, cardiovascular surgery, nephrology, wound care Free Text DxA P Notes Free text DxA P notes: Assessment and plans: Three-vessel coronary artery disease CV surgery following. Dopplers, alexandro duplex were ordered patient is off the heparin drip on aspirin, Brilinta, atorvastatin, metoprolol -echo from OSH LVEF 50% cardiology seen -S/p PCI to left circumflex 06/27 Patient needs staged PCI to mid and proximal LAD in 1 to 2 weeks as outpatient Constipation -miralex. vaginal bleeding- fibroids 07/01 - bleeding for 2 weeks and had no vaginal bleeding for 15 years...ask director industrial museum to see and check pelvic ultrasound. 07/02 - usg shows fibroids and director industrial museum wants outpt f /u for endometrial bx. Severe PAD/toe ulcer: Status post MORPHOLOGIST and atherec cheri with CSI followed by MORPHOLOGIST with stable balloon on left anterior and posterior tibial artery, for r ight anterior and posterior tibial artery Will need staged intervention as p er cardiology. 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 Plan for peripheral angiogram in the morning as per c ardiology 06/29 Acute respiratory failure with hypoxemia Patient presented with supplemental nasal cannu la oxygen -Pulmonary edema, pleural effusion on CT chest, no PE Patient needs to be evaluated for home oxygen o nce patient is medically cleared for discharge On 2 L oxygen via nasal cannula 06/29 DuoNeb treatment Pulmonary consulted -Continue to optimize heart failure management, blood pressure control and Outpatient sleep study Leukocytosis: -CT chest result done -Afebrile -Patient has multiple ulcers in hands and feet. Wound cx growing ent fecalis, rocephin switched to unasyn 07/04 -blood culture 06/26 (was not ordered on admissi on) no growth till now 06/30- WBC increasing on unasyn. consult ID. ran prieto? 07/04- bone scan ordered for her toes. results p ending. 07/05 - bone scan negative for osteo End-stage renal disease on hemodialysis Patient is on a Sunday sched jaxon Banana Ripening Room Supervisor following Functional quadriplegia: Rehab consult as recommended by cardiology. Pat ient lives alone. 06/28 Elevated LFTs Secondary to hepatic congestion Monitor LFTs Type 2 diabetes mellitus on insulin sliding scale Diabetic diet Hypothyroidism Resume Synthroid Anemia of chronic disease -Transfuse for Hb <7 -No bleeding hypotension on midodrine on empiric IV CTX check labs in am SCD for DVT prophylaxis. Disposition: S/p PCI and 1 stent placement in le ft circumflex, plan for peripheral angiogram to right anterior and poste rior tibial artery. On 2 L oxygen via nasal cannula. On Unasyn. Patient ricki es alone. Case management consulted for inpatient rehab. Continue inpatien t care. 06/30- WBC worsening. ID consulted. awaiting tra nsfer to rehab. 12/24- WBC better. ABX changed from unas yn to VANC. pt c/o DUB. 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 07/02- Possible panic attack yesterday...to CCU..transfer back to telemetry. d/w bedside nurse. 07/03 - miralex for constipation. 07/04- Bone scan ordered for the toes. d /w case aide and plan is for SNF at [place]. awaiting insurance approval. 07/05 - awaiting SNF approval from insurance. 07/06 - d/w case management. awaiting insurance approval for SNF 07/07 - insurance rejected SNF...dc home with h/ h. Med Rec Med Rec Discharge meds: Stop taking the following medications: LISINOPRIL (ZESTRIL) 5 MG TAB busPIRone (BUSPIRONE) 5 MG TAB 5 MILLIGRAM ORAL ONE TIME ONLY. FAMOTIDINE (PEPCID) 40 MG TAB 40 MILLIGRAM ORAL DAILY. amLODIPine (NORVASC) 10 MG TAB 10 MILLIGRAM ORAL DAILY. METOPROLOL SUCC XL (TOPROL XL) 50 MG TAB.SA 50 MILLIGRAM ORAL DAILY. Continue taking these medications: LEVOTHYROXINE (SYNTHROID) 150 MCG TAB Comments: #90 - SIG Obtained From [facility] PANTOPRAZOLE DR (PROTONIX) 40 MG TAB.DR 40 MILLIGRAM ORAL TWICE DAILY. Comments: TAKE 1 TABLET BY MOUTH TWICE DAILY 1/2 HOUR BEF ORE BREAKFAST AND LAST; # 90 - SIG Obtained From [facility] MUPIROCIN (BACTROBAN 2%) 2 % OINTMENT 1 APPLIC TOPICAL TWICE DAILY. Instructions: Apply a small amount to each nostril twice edgar y x5 days. LORATADINE (CLARITIN) 10 MG TAB 10 MILLIGRAM ORAL DAILY. Start taking the following new medications: MIDODRINE (PROAMATINE) 5 MG TAB 10 MILLIGRAM ORAL DIALYSIS - DOSE BEFORE. Days = 30 Qty = 30 No Refills MIDODRINE (PROAMATINE) 5 MG TAB 5 MILLIGRAM ORAL 0900,1300,1700 Days = 30 Qty = 30 No Refills TICAGRELOR (BRILINTA) 90 MG TAB 90 MILLIGRAM ORAL EVERY 12 HOURS. Days = 30 Qty = 60 No Refills ATORVASTATIN (LIPITOR) 40 MG TAB 40 MILLIGRAM ORAL 2100 Days = 30 Qty = 30 No Refills METOPROLOL TARTRATE (LOPRESSOR) 25 MG TAB 12.5 MILLIGRAM ORAL EVERY 12 HOURS. Days = 30 Qty = 30 No Refills busPIRone (BUSPIRONE) 5 MG TAB 5 MILLIGRAM ORAL TWICE DAILY. Days = 30 Qty = 60 No Refills ASPIRIN EC (ECOTRIN) 81 MG TAB.EC 81 MILLIGRAM ORAL WITH BREAKFAST. Days = 30 Qty = 30 No Refills SEVELAMER CARBONATE (RENVELA) 800 MG TAB 3,200 MILLIGRAM ORAL WITH MEALS. Days = 30 Qty = 360 No Refills CALCITRIOL (ROCALTROL) 0.25 MCG CAP 0.5 MICROGRAM ORAL DAILY. Days = 30 Qty = 60 No Refills Objective Head/Eyes: atraumatic, clear cornea, EOMI, kristopher l conjunctiva/sclera, PERRLA ENT: moist mucosal membranes Neck: supple/no meningismus, no JVD Cardiovascular: normal heart sounds, regular rat e rhythm, no murmur Respiratory: aerating well, clear to auscultatio n, symmetric expansion Abdomen: non-tender, normal bowel sounds, soft, no distention Extremities: edema, moves all Neuro/SURGICAL SPECIALIST: alert, oriented X 3, normal speech, n o motor deficits Ulcer: Type/cause: diabetic, arterial Location: foot (bilateral toes) Psychiatry: normal affect Discharge Instructions PCP Discharge to: Home Health wPlan of Care Additional Discharge Routines: Add. instructions Additional instructions: Make SURE oxygen arranged before she goes home. f/u with all consultants and PCP. Quality: Discharge Current Medications Current medication review: I attest that the foregoing medication list in [facility] medical record is true, accurate, and complete to the best of my knowled ge. Electronically Signed by Adonis Gaytan MD on 07/31 at 0757 RPT #:[id number] END OF REPORT 2022-07-07 13:53:00-00:00 [facility] Pul[facility] Progress Note REPORT#:[id number] REPORT STATUS: Signed DATE:07/07/22 TIME: 1353 PATIENT: MESERET MOTTA UNIT #: [id number] ROOM/BED: [address]: [address] AGE: 67 SEX: F ATTEND: Adonis Gaytan MD ADM AUTHOR: Ana Bobo * ALL edits or amendments must be made on the el [employer]/computer document * Subjective Comments: On NC, feels better, no new complaints ROS All systems rev neg: except as marked Objective General VS/I O: Last Documented: Result Date Time Pulse Ox 100 07/07 1033 B/P 112/66 07/07 1033 B/P Mean 81.3 07/07 1033 O2 Delivery Nasal cannula 07/07 1033 Temp 37.0 07/07 1033 Pulse 75 07/07 1033 Resp 16 07/07 1033 O2 Flow Rate 2 07/07 1031 FiO2 21 06/28 2342 24 hour I O ending at 0700: 07/07 0700 07/06 1900 Intake Total Output Total 3500 Balance -3500 Output, 3500 Hemodialysis PATIENT WEIGHT: Weight (lb): 245 Weight (oz): 9.52 Weight (kg): 111.13 Medications: Active Meds + DC'd Last 24 Hrs Vancomycin HCl (VANCOMYCIN HCL) 750 MG ONCE ONE IV (DC) Sodium Chloride (SODIUM CHLORIDE 0.9%) 250 ML Hydrocodone Bitart/Acetaminophen (NORCO 5/325) 1 TAB Q4H PRN PRN PO Morphine Sulfate (morphine SULFATE) 4 MG Q4H PRN PRN IV Calcium Carbonate (TUMS CHEW TAB) 1,000 MG Q6H P RN PRN PO Sennosides (Senna Lax 8.6 MG TABLET) 8.6 MG BID PO Polyethylene Glycol (MIRALAX) 17 GM DAILY PO Magnesium Hydroxide (MILK OF MAGNESIA) 30 ML BID PRN PRN PO Epoetin Vanesa-epbx (RETACRIT) 6,000 UNIT TuThSa@2 100 SUBQ Miscellaneous Information (VANCOMYCIN PHARMACY T O DOSE) 1 EACH ASDIR IV (DC) Lactulose (LACTULOSE) 20 GM DAILY PRN PRN PO Docusate Sodium (COLACE) 100 MG BID PO Sodium Chloride (OCEAN) 1 SPRAY Q2H PRN PRN NASA L Albuterol/Ipratropium (DUONEB) 3 ML RTQ4H PRN DC N NEB Ticagrelor (BRILINTA) 90 MG Q12HR PO Atropine Sulfate (ATROPINE SULFATE 0.1MG/ML SYR) 0.5 MG ASDIR PRN IV Sodium Chloride (SODIUM CHLORIDE 0.9%) 500 ML DIR PRN IV Sevelamer Carbonate (RENVELA) 3,200 MG C MEALS P O Calcitriol (RocaltroL) 0.5 MCG DAILY PO Midodrine (PROAMATINE) 5 MG 0900,1300,1700 PO Levothyroxine Sodium (LEVOTHYROXINE SODIUM) 150 MCG DAILY 0600 PO Buspirone HCl (BUSPAR) 5 MG BID PO Metoprolol Tartrate (LOPRESSOR) 12.5 MG Q12HR PO Pantoprazole (PROTONIX) 40 MG 0600,1800 PO Midodrine (PROAMATINE) 10 MG DIALYSIS-DOSE BEFOR E PO (CKD) Albumin Human (ALBUMINAR-25%) 12.5 GM ASDIR PRN IV Heparin Sodium (Porcine) (HEPARIN SODIUM) 3,000 UNIT ASDIR PRN DIALYSIS Lidocaine HCl (LIDOCAINE HCL/PF) 0.5 ML ASDIR DC N I-DERMAL (CKD) Mannitol (MANNITOL 25% 12.5GM/50ML) 12.5 GM ASDI R PRN IV Sodium Chloride (SODIUM CHLORIDE 0.9%) 2,000 ML ASDIR PRN IV Sodium Chloride (SODIUM CHLORIDE) 5 ML ASDIR PRN IV Sodium Chloride (SODIUM CHLORIDE) 10 ML ASDIR DC N IV Sodium Chloride (SODIUM CHLORIDE 0.9%) 250 ML DIR PRN IV Aspirin (ASPIRIN) 81 MG C BK PO Atorvastatin Calcium (LIPITOR) 40 MG 2100 PO Insulin Human Lispro (HUMALOG) 0 AC HS SUBQ Dextrose/Water (DEXTROSE 10% IN WATER) 125 ML DIR PRN IV (CKD) Dextrose/Water (DEXTROSE 10% IN WATER) 250 ML DIR PRN IV (CKD) Glucagon (GLUCAGON) 1 MG ASDIR PRN IM Melatonin (Melatonin) 3 MG BEDTIME PRN PRN PO Acetaminophen (TYLENOL) 650 MG Q4H PRN PRN PO Heparin Sodium (HEPARIN 5000 UNITS/ML) 5,000 UNI T ASDIR PRN IV Nitroglycerin (NITROSTAT) 0.4 MG Q5M PRN PRN SL Ondansetron HCl (ZOFRAN) 4 MG Q6H PRN PRN IV Physical Exam General appearance: alert, awake, oriented, no a cute distress Head/eyes: atraumatic, normocephalic, PERRL Neck: supple/no meningismus, no bruit/NL carotid s, no lymphadenopathy Cardiovascular: normal S1/S2, no rub, no gallop Respiratory/chest: decreased breath sounds, symmetric expansion, no distress, no tenderness Abdomen: soft, normal bowel sounds, no distentio n, no guarding Extremities: edema, no clubbing Neuro/SURGICAL SPECIALIST: alert, oriented X 3, no motor deficit s Skin: dry, normal color Ulcer: Type/cause: diabetic, arterial Location: foot (bilateral toes) Psychiatry: normal affect, no hallucinations Results Findings/Data: Laboratory Tests 07/07 07/07 07/06 07/06 1202 1031 1955 1535 Chemistry POC Glucose (70 - 110 MG/DL) 156 H 181 H 90 212 H Diagnosis, Assessment Plan Free Text A P: 1- Acute hypoxemic respiratory failure 2- Acute pulm edema 3- Cardiology disease status post PCI 4- Chronic diastolic heart failure HFpEF 5- End-stage renal disease on hemodialysis 6- Hypertension/DM2 7- Peripheral vascular disease/ischemic ulcer 8- Obesity ? Underlying JAMILAH - Nasal cannula O2, titrate to keep sats above 9 4%. On 3L - Hemodialysis with fluid removal per nephrology service - DuoNeb every 4 hours as needed - Continue to optimize heart failure management, blood pressure control - Wound care - Outpatient sleep study - DVT prophylaxis - Transferred briefly to ICU after suspected vas ovagal event now resolved - Home with home O2 at 1355 RPT #:[id number] END OF REPORT 2022-07-07 13:48:00-00:00 [facility] Infectious Dis. Progress Note REPORT#:[id number] REPORT STATUS: Signed DATE:07/07/22 TIME: 1348 PATIENT: MESERET MOTTA UNIT #: [id number] ROOM/BED: 4404[address]1 : 56 AGE: 67 SEX: F ATTEND: Adonis Gaytan MD ADM AUTHOR: Kasey Mendez MD * ALL edits or amendments must be made on the el [employer]/computer document * Subjective HPI: 67 yr old with esrd on hd admitted after multiple falls and left foot vascular ulcers sec to severe PVD. Patient reports: No: cough, diarrhea, fever, headache, nausea. Portions of this section wer e scribed by Mohini Orozco on 07/07/22 at 1348 Objective General VS/I O: Vital Signs Date Temp Pulse Resp B/P B/P Mean Pulse Ox FiO2 07/06-07/07 98.2-98.6 71-85 16-18 112-159/63-70 81.1-99.7 95-100 Last Documented: Result Date Time Pulse Ox 100 07/07 1033 B/P 112/66 07/07 1033 B/P Mean 81.3 07/07 1033 O2 Delivery Nasal cannula 07/07 1033 Temp 98.6 07/07 1033 Pulse 75 07/07 1033 Resp 16 07/07 1033 O2 Flow Rate 2 07/07 1031 FiO2 21 06/28 2342 Vital Signs: Date Time Temp Pulse Resp B/P B/P Pulse O2 O2 F low FiO2 Mean Ox Delivery Rate 07/07 1033 98.6 75 16 112/66 81.3 100 Nasal cannula 07/07 1031 Nasal 2 cannula 07/07 0717 98.2 82 16 118/63 81.1 95 Room air 07/07 0413 98.4 80 18 125/67 86.3 99 07/07 0049 98.2 85 17 115/66 82.7 99 07/06 2000 Nasal 22 cannula 07/06 1905 98.6 81 16 159/70 99.7 99 07/06 1538 98.2 71 18 128/63 84.8 100 Nasal 3 cannula 24 hour I O ending at 0700: 07/07 0700 07/06 1900 Intake Total Output Total 3500 Balance -3500 Output, 3500 Hemodialysis PATIENT WEIGHT: Weight (lb): 245 Weight (oz): 9.52 Weight (kg): 111.13 Physical Exam General appearance: alert, awake, oriented Wound/incision: Location: jarrett left more than right foot ulcers, erythema Site condition: dressing clean dry, dressing in tact Head/Eyes: clear cornea, PERRL ENT: moist mucosal membranes Neck: full range of motion, no JVD Cardiovascular: normal heart sounds Respiratory: rhonchi Abdomen: no CVA tenderness, no distention, no gu arding Genitourinary: no flank pain, no urinary cathete r Extremities: abnormal capill dre refill, abnormal temperature, edema, moves all, normal motor function, no clubbing, no contractu re, no cyanosis Skin: erythema, dry Ulcer: Type/cause: diabetic, arterial Location: foot (bilateral toes) Results Findings/Data: Laboratory Tests 07/07 07/07 07/06 07/06 1202 1031 1955 1535 Chemistry POC Glucose (70 - 110 MG/DL) 156 H 181 H 90 21 2 H Medication(s) Ordered: Ahfs Category Unknown Sig/Enedina Start time Last Medication Dose Route Stop Time Status Admin Melatonin 3 MG BEDTIME PRN PRN 06/21 1900 AC PO 07/21 1859 2027 Anti-Infective Agents Sig/Enedina Start time Last Medication Dose Route Stop Time Status Admin Vancomycin HCl 750 MG ONCE ONE 07/06 1700 DC Sodium Chloride 250 ML IV 07/06 1759 1729 Miscellaneous 1 EACH ASDIR 06/30 1300 DC Information IV 07/30 1259 Autonomic Drugs Sig/Enedina Start time Last Medication Dose Route Stop Time Status Admin Albuterol/Ipratropium 3 ML RTQ4H PRN PRN 06/28 1215 AC NEB 07/28 1214 Atropine Sulfate 0.5 MG ASDIR PRN 06/27 1600 AC IV 07/27 1559 Midodrine 5 MG 0900,1300,1700 06/23 0900 AC PO 07/23 0859 1227 Midodrine 10 MG DIALYSIS-DOSE BEFORE 06/22 1545 CKD 07/06 PO 07/22 1544 0800 Blood Derivatives Sig/Enedina Start time Last Medication Dose Route Stop Time Status Admin Albumin Human 12.5 GM ASDIR PRN 06/22 1530 AC 1 08/28 IV 07/23 1529 1909 Blood Formation,Coagulation Sig/Enedina Start time Last Medication Dose Route Stop Time Status Admin Epoetin Vanesa-epbx 6,000 UNIT TuThSa@2100 07/01 2300 AC 07/06 SUBQ 07/31 2259 2111 Ticagrelor 90 MG Q12HR 06/28 1115 AC 07/07 PO 07/28 1114 0829 Heparin Sodium 3,000 UNIT ASDIR PRN 06/22 1530 AC 07/06 (Porcine) DIALYSIS 07/22 1529 1058 Heparin Sodium 5,000 UNIT ASDIR PRN 06/21 1730 AC 06/22 IV 07/21 1729 1449 Cardiovascular Drugs Sig/Enedina Start time Last Medication Dose Route Stop Time Status Admin Metoprolol Tartrate 12.5 MG Q12HR 06/22 2100 AC 07/07 PO 07/22 205 0829 Lidocaine HCl 0.5 ML ASDIR PRN 06/22 1530 CKD I-DERMAL 07/23 1529 Atorvastatin Calcium 40 MG 2100 06/21 2100 AC PO 07/21 2058 2109 Nitroglycerin 0.4 MG Q5M PRN PRN 06/21 1730 AC SL 07/21 1729 Central Nervous System Agents Sig/Enedina Start time Last Medication Dose Route Stop Time Status Admin Hydrocodone Bitart/ 1 TAB Q4H PRN PRN 07/06 130 0 AC 07/06 Acetaminophen PO 07/11 1259 1314 Morphine Sulfate 4 MG Q4H PRN PRN 07/06 1300 AC IV 07/11 1259 Buspirone HCl 5 MG BID 06/22 2100 AC 07/07 PO 07/22 2058 0828 Aspirin 81 MG C BK 06/22 08 AC 07/07 PO 07/22 0759 0829 Acetaminophen 650 MG Q4H PRN PRN 06/21 1730 AC 07/06 PO 07/21 1729 0208 Electrolytic, Caloric, And Bailey Sig/Enedina Start time Last Medication Dose Route Stop Time Status Admin Calcium Carbonate 1,000 MG Q6H PRN PRN 07/04 16 45 AC 07/04 PO 08/03 1644 1708 Lactulose 20 GM DAILY PRN PRN 06/30 1045 AC PO 07/30 1044 0038 Sodium Chloride 500 ML ASDIR PRN 06/27 1600 AC IV 07/27 1559 Sevelamer Carbonate 3,200 MG C MEALS 06/26 0800 AC 07/07 PO 07/26 0759 1226 Mannitol 12.5 GM ASDIR PRN 06/22 1530 AC IV 07/23 1529 Sodium Chloride 2,000 ML ASDIR PRN 06/22 1530 A C 07/06 IV 07/23 1529 1057 Sodium Chloride 5 ML ASDIR PRN 06/22 1530 AC IV 07/22 1529 Sodium Chloride 10 ML ASDIR PRN 06/22 1530 AC 1 IV 07/22 1529 1100 Sodium Chloride 250 ML ASDIR PRN 06/22 1530 AC IV 07/22 1529 Dextrose/Water 125 ML ASDIR PRN 06/21 1900 CKD IV 07/21 1859 Dextrose/Water 250 ML ASDIR PRN 06/21 1900 CKD IV 07/21 1859 Eye, Ear, Nose And Throat (Een Sig/Enedina Start time Last Medication Dose Route Stop Time Status Admin Sodium Chloride 1 SPRAY Q2H PRN PRN 06/29 1015 AC 06/29 NASAL 07/29 1014 1724 Gastrointestinal Drugs Sig/Enedina Start time Last Medication Dose Route Stop Time Status Admin Sennosides 8.6 MG BID 07/03 2100 AC 07/07 PO 08/02 205 0828 Polyethylene Glycol 17 GM DAILY 07/03 1115 AC 1 09/04 PO 08/02 1114 1425 Magnesium Hydroxide 30 ML BID PRN PRN 07/02 134 5 AC 07/05 PO 08/01 1344 0038 Docusate Sodium 100 MG BID 06/30 0900 AC 07/07 PO 07/30 0859 0829 Pantoprazole 40 MG 0600,1800 06/22 1800 AC 06/10 0 PO 07/22 175 0532 Ondansetron HCl 4 MG Q6H PRN PRN 06/21 1730 AC 07/05 IV 07/21 1729 0042 Hormones And Synthetic Substit Sig/Enedina Start time Last Medication Dose Route Stop Time Status Admin Levothyroxine Sodium 150 MCG DAILY 0600 06/23 0 600 AC 07/07 PO 07/23 0559 0532 Insulin Human Lispro 0 AC HS 06/21 2100 AC 06/10 0 SUBQ 07/21 2058 1226 Glucagon 1 MG ASDIR PRN 06/21 1900 AC IM 07/21 1859 Vitamins Sig/Enedina Start time Last Medication Dose Route Stop Time Status Admin Calcitriol 0.5 MCG DAILY 06/23 0900 AC 07/07 PO 07/23 0859 0828 Portions of this section wer e scribed by Mohini Orozco on 07/07/22 at 1348 Treatment Prophylaxis Treatment Prophylaxis Lines: peripheral CVC/PICC documentation: The data below has been imported from nursing do cumentation. Any exceptions have been noted below under Provider comments. CVC/PICC insertion date/time : Dialysis catheter double Subclavian Left Inserted 06/21/22 1702 Provider comments on imported nursing data: [] Portions of this section alden spears scribed by Mohini Orozco on 07/07/22 at 1348 Diagnosis, Assessment Plan Free Text A P: 1. Severe PVd: vascular ulce rs of the left foot : infection with e. fecalis: s/p vascular intrvention. s/p vanc 7days 2. Leucocytosis: multifactor ial sec to foot ulcers infection, leukemoid reaction to fluid overload. 3. ESRD: on hd. 4. Dmii: with DFU: on insulin 5. diastolic heart failure 6. hypertension monitor off abx Consultants: cardiology, cardiovascular surgery, nephrology, wound care Portions of this section alden spears scribed by Mohini Orozco on 07/07/22 at 1348 at 0813 RPT #:[id number] END OF REPORT 2022-07-07 12:29:00-00:00 [facility] Wound Care Progress Note REPORT#:[id number] REPORT STATUS: Signed DATE:07/07/22 TIME: 1229 PATIENT: MESERET MOTTA UNIT #: [id number] ROOM/BED: [place] [id number] : 56 AGE: 67 SEX: F ATTEND: Adonis Gaytan MD ADM AUTHOR: Sybil Byers MD * ALL edits or amendments must be made on the [employer]/computer document * Subjective Chief complaint: Woundcare FU for foot leg ulcers; no complaints Objective General Medications: Active Meds + DC'd Last 24 Hrs Vancomycin HCl (VANCOMYCIN HCL) 750 MG ONCE ONE IV (DC) Sodium Chloride (SODIUM CHLORIDE 0.9%) 250 ML Hydrocodone Bitart/Acetaminophen (NORCO 5/325) 1 TAB Q4H PRN PRN PO Morphine Sulfate (morphine SULFATE) 4 MG Q4H PRN PRN IV Calcium Carbonate (TUMS CHEW TAB) 1,000 MG Q6H P RN PRN PO Sennosides (Senna Lax 8.6 MG TABLET) 8.6 MG BID PO Polyethylene Glycol (MIRALAX) 17 GM DAILY PO Magnesium Hydroxide (MILK OF MAGNESIA) 30 ML BID PRN PRN PO Epoetin Vanesa-epbx (RETACRIT) 6,000 UNIT TuThSa@2 100 SUBQ Miscellaneous Information (VANCOMYCIN PHARMACY T O DOSE) 1 EACH ASDIR IV (DC) Lactulose (LACTULOSE) 20 GM DAILY PRN PRN PO Docusate Sodium (COLACE) 100 MG BID PO Sodium Chloride (OCEAN) 1 SPRAY Q2H PRN PRN NASA L Albuterol/Ipratropium (DUONEB) 3 ML RTQ4H PRN DC N NEB Ticagrelor (BRILINTA) 90 MG Q12HR PO Atropine Sulfate (ATROPINE SULFATE 0.1MG/ML SYR) 0.5 MG ASDIR PRN IV Sodium Chloride (SODIUM CHLORIDE 0.9%) 500 ML DIR PRN IV Sevelamer Carbonate (RENVELA) 3,200 MG C MEALS P O Calcitriol (RocaltroL) 0.5 MCG DAILY PO Midodrine (PROAMATINE) 5 MG 0900,1300,1700 PO Levothyroxine Sodium (LEVOTHYROXINE SODIUM) 150 MCG DAILY 0600 PO Buspirone HCl (BUSPAR) 5 MG BID PO Metoprolol Tartrate (LOPRESSOR) 12.5 MG Q12HR PO Pantoprazole (PROTONIX) 40 MG 0600,1800 PO Midodrine (PROAMATINE) 10 MG DIALYSIS-DOSE BEFOR E PO (CKD) Albumin Human (ALBUMINAR-25%) 12.5 GM ASDIR PRN IV Heparin Sodium (Porcine) (HEPARIN SODIUM) 3,000 UNIT ASDIR PRN DIALYSIS Lidocaine HCl (LIDOCAINE HCL/PF) 0.5 ML ASDIR DC N I-DERMAL (CKD) Mannitol (MANNITOL 25% 12.5GM/50ML) 12.5 GM ASDI R PRN IV Sodium Chloride (SODIUM CHLORIDE 0.9%) 2,000 ML ASDIR PRN IV Sodium Chloride (SODIUM CHLORIDE) 5 ML ASDIR PRN IV Sodium Chloride (SODIUM CHLORIDE) 10 ML ASDIR DC N IV Sodium Chloride (SODIUM CHLORIDE 0.9%) 250 ML DIR PRN IV Aspirin (ASPIRIN) 81 MG C BK PO Atorvastatin Calcium (LIPITOR) 40 MG 2100 PO Insulin Human Lispro (HUMALOG) 0 AC HS SUBQ Dextrose/Water (DEXTROSE 10% IN WATER) 125 ML DIR PRN IV (CKD) Dextrose/Water (DEXTROSE 10% IN WATER) 250 ML DIR PRN IV (CKD) Glucagon (GLUCAGON) 1 MG ASDIR PRN IM Melatonin (Melatonin) 3 MG BEDTIME PRN PRN PO Acetaminophen (TYLENOL) 650 MG Q4H PRN PRN PO Heparin Sodium (HEPARIN 5000 UNITS/ML) 5,000 UNI T ASDIR PRN IV Nitroglycerin (NITROSTAT) 0.4 MG Q5M PRN PRN SL Ondansetron HCl (ZOFRAN) 4 MG Q6H PRN PRN IV Dietitian Nutrition assessment The data set between the solid lines has been im ported from the dietitian's assessment. BMI Calculated: 39.5 Nutrition related diagnosis: Nutrition diagnosis details: Nutrition problem: Nutrition etiology: Nutrition signs and symptoms: Nutrition prescription: Dietitian name: Assessment completed: Physical Exam General appearance: awake Skin: Ulcers on dorsum toes, L>R,improving, w le ss erythema @ forefoot, some scabs coming off. LLE warm, RLE cold to touch. Results Findings/Data: Laboratory Tests: 07/07 07/07 07/06 07/06 07/06 1202 1031 1955 1535 1232 Chemistry POC Glucose (70 - 110 MG/DL) 156 H 181 H 90 212 H 120 H Current Medications Sig/Enedina Start time Last Medication Dose Route Stop Time Status Admin Vancomycin HCl 750 MG ONCE ONE 07/06 1700 DC Sodium Chloride 250 ML IV 07/06 1759 1729 Hydrocodone Bitart/ 1 TAB Q4H PRN PRN 07/06 1300 AC 07/06 Acetaminophen PO 07/11 1259 1314 Morphine Sulfate 4 MG Q4H PRN PRN 07/06 1300 AC IV 07/11 1259 Calcium Carbonate 1,000 MG Q6H PRN PRN 07/04 16 45 AC 07/04 PO 08/03 1644 1708 Sennosides 8.6 MG BID 07/03 2100 AC 07/07 PO 08/02 2059 0828 Polyethylene Glycol 17 GM DAILY 07/03 1115 AC PO 08/02 1114 1425 Magnesium Hydroxide 30 ML BID PRN PRN 07/02 1345 AC 07/05 PO 08/01 1344 0038 Epoetin Vanesa-epbx 6,000 UNIT TuThSa@2100 07/01 2 300 AC 07/06 SUBQ 07/31 2259 2111 Miscellaneous 1 EACH ASDIR 06/30 1300 DC Information IV 07/30 1259 Lactulose 20 GM DAILY PRN PRN 06/30 1045 AC 06/09 8 PO 07/30 1044 0038 Docusate Sodium 100 MG BID 06/30 0900 AC 07/07 PO 07/30 0859 0829 Sodium Chloride 1 SPRAY Q2H PRN PRN 06/29 1015 A C 06/29 NASAL 07/29 1014 1724 Albuterol/Ipratropiu 3 ML RTQ4H PRN PRN 06/28 12 15 AC m NEB 07/28 1214 Ticagrelor 90 MG Q12HR 06/28 1115 AC 07/07 PO 07/28 1114 0829 Atropine Sulfate 0.5 MG ASDIR PRN 06/27 1600 AC IV 07/27 1559 Sodium Chloride 500 ML ASDIR PRN 06/27 1600 AC IV 07/27 1559 Sevelamer Carbonate 3,200 MG C MEALS 06/26 0800 AC 07/07 PO 07/26 0759 1226 Calcitriol 0.5 MCG DAILY 06/23 0900 AC 07/07 PO 07/23 0859 0828 Midodrine 5 MG 0900,1300,1700 06/23 0900 AC 12 0 PO 07/23 0859 1227 Levothyroxine Sodium 150 MCG DAILY 0600 12/16 06 00 AC 07/07 PO 07/23 0559 0532 Buspirone HCl 5 MG BID 06/22 2100 AC 07/07 PO 07/22 2058 0828 Metoprolol Tartrate 12.5 MG Q12HR 06/22 2100 AC 07/07 PO 07/22 2058 08 Pantoprazole 40 MG 0600,1800 06/22 1800 AC 07/07 PO 07/22 175 0532 Midodrine 10 MG DIALYSIS-DOSE 06/22 1545 CKD BEFORE PO 07/22 1544 0800 Albumin Human 12.5 GM ASDIR PRN 06/22 1530 AC IV 07/23 1529 1909 Heparin Sodium 3,000 UNIT ASDIR PRN 06/22 1530 A C 07/06 (Porcine) DIALYSIS 07/22 1529 1058 Lidocaine HCl 0.5 ML ASDIR PRN 06/22 1530 CKD I-DERMAL 07/23 1529 Mannitol 12.5 GM ASDIR PRN 06/22 1530 AC IV 07/23 1529 Sodium Chloride 2,000 ML ASDIR PRN 06/22 1530 AC 07/06 IV 07/23 1529 1057 Sodium Chloride 5 ML ASDIR PRN 06/22 1530 AC IV 07/22 1529 Sodium Chloride 10 ML ASDIR PRN 06/22 1530 AC IV 07/22 1529 1100 Sodium Chloride 250 ML ASDIR PRN 06/22 1530 AC IV 07/22 1529 Aspirin 81 MG C BK 06/22 0800 AC 07/07 PO 07/22 0759 0829 Atorvastatin Calcium 40 MG 2100 06/21 2100 AC PO 07/21 2058 210 Insulin Human Lispro 0 AC HS 06/21 2100 AC 07/07 SUBQ 07/21 205 1226 Dextrose/Water 125 ML ASDIR PRN 06/21 1900 CKD IV 07/21 1859 Dextrose/Water 250 ML ASDIR PRN 06/21 1900 CKD IV 07/21 1859 Glucagon 1 MG ASDIR PRN 06/21 1900 AC IM 07/21 1859 Melatonin 3 MG BEDTIME PRN PRN 06/21 1900 AC PO 07/21 1859 2027 Acetaminophen 650 MG Q4H PRN PRN 06/21 1730 AC 1 PO 07/21 1729 0208 Heparin Sodium 5,000 UNIT ASDIR PRN 06/21 1730 A C 06/22 IV 07/21 1729 1449 Nitroglycerin 0.4 MG Q5M PRN PRN 06/21 1730 AC SL 07/21 172 Ondansetron HCl 4 MG Q6H PRN PRN 06/21 1730 AC 1 09/05 IV 07/21 1729 0042 Laboratory Tests: 07/07 07/07 07/06 07/06 07/06 1202 1031 1955 1535 1232 Chemistry POC Glucose (70 - 110 MG/DL) 156 H 181 H 90 212 H 120 H Diagnosis, Assessment Plan Free Text A P: Multiple ulcers, B feet, B hands , sp fall, w ar terial ulcers, B feet - improving; continue Bactroban BID to all ulcers, leave open to air. Severe PVD, BLE - sp angio LLE CAD- tx per cardiology DM ESRD on HD Rehab pending [ x] Optimize Nutrition and Glycemic Control [ x] Pressure relieving inte rventions (Low Air Mattress, Prevalon boot, Turn q2h ) [ x] Nursing to implement impaired skin integrit y care plan as per skin care protocol Coordinattion of care D/W [ ] Other MD's [x ] P atient [ ] Family [ x ] Nursing [ ] Case Management Electronically Signed by Sybil Byers MD on at 2243 RPT #:[id number] END OF REPORT 2022-07-07 10:35:00-00:00 [facility] Hospitalist Progress Note REPORT#:[id number] REPORT STATUS: Signed DATE:07/07/22 TIME: 1035 PATIENT: MESERET MOTTA UNIT #: [id number] ROOM/BED: [place] [address] : 56 AGE: 67 SEX: F ATTEND: Adonis Gaytan MD ADM AUTHOR: Adonis Gaytan MD * ALL edits or amendments must be made on the el [employer]/computer document * Subjective Chief complaint: no cp. no sob. ready to go home Objective General VS/I O: Vital Signs: Date Time Temp Pulse Resp B/P B/P Pulse O2 O2 F low FiO2 Mean Ox Delivery Rate 07/07 1033 98.6 75 16 112/66 81.3 100 Nasal cannula 07/07 0717 98.2 82 16 118/63 81.1 95 Room air 07/07 0413 98.4 80 18 125/67 86.3 99 07/07 0049 98.2 85 17 115/66 82.7 99 07/06 2000 Nasal 22 cannula 07/06 1905 98.6 81 16 159/70 99.7 99 07/06 1538 98.2 71 18 128/63 84.8 100 Nasal 3 cannula 24 hour I O ending at 0700: 07/07 0700 07/06 1900 Intake Total Output Total 3500 Balance -3500 Output, 3500 Hemodialysis PATIENT WEIGHT: Weight (lb): 245 Weight (oz): 9.52 Weight (kg): 111.13 Physical Exam General appearance: alert, awake, oriented Head/Eyes: atraumatic, clear cornea, EOMI, kristopher l conjunctiva/sclera, PERRLA ENT: moist mucosal membranes Neck: supple/no meningismus, no JVD Cardiovascular: normal heart sounds, regular rat e rhythm, no murmur Respiratory: aerating well, clear to auscultatio n, symmetric expansion Abdomen: non-tender, normal bowel sounds, soft, no distention Extremities: edema, moves all Neuro/SURGICAL SPECIALIST: alert, oriented X 3, normal speech, n o motor deficits Ulcer: Type/cause: diabetic, arterial Location: foot (bilateral toes) Psychiatry: normal affect Results Radiology data: Laboratory Tests 07/06/22 0540: [Embedded Image Not Available] Current Medications Sig/Enedina Start time Last Medication Dose Route Stop Time Status Admin Vancomycin HCl 750 MG ONCE ONE 07/06 1700 DC Sodium Chloride 250 ML IV 07/06 1759 1729 Hydrocodone Bitart/ 1 TAB Q4H PRN PRN 07/06 1300 AC 07/06 Acetaminophen PO 07/11 1259 1314 Morphine Sulfate 4 MG Q4H PRN PRN 07/06 1300 AC IV 07/11 1259 Calcium Carbonate 1,000 MG Q6H PRN PRN 07/04 16 45 AC 07/04 PO 08/03 1644 1708 Sennosides 8.6 MG BID 07/03 2100 AC 07/07 PO 08/02 205 0828 Polyethylene Glycol 17 GM DAILY 07/03 1115 AC PO 08/02 1114 1425 Magnesium Hydroxide 30 ML BID PRN PRN 07/02 1345 AC 07/05 PO 08/01 1344 0038 Epoetin Vanesa-epbx 6,000 UNIT Mariannaa@2100 07/01 2 300 AC 07/06 SUBQ 07/31 2259 2111 Miscellaneous 1 EACH ASDIR 06/30 1300 DC Information IV 07/30 1259 Lactulose 20 GM DAILY PRN PRN 06/30 1045 AC 06/09 8 PO 07/30 1044 0038 Docusate Sodium 100 MG BID 06/30 0900 AC 07/07 PO 07/30 0859 0829 Sodium Chloride 1 SPRAY Q2H PRN PRN 06/29 1015 A C 06/29 NASAL 07/29 1014 1724 Albuterol/Ipratropiu 3 ML RTQ4H PRN PRN 06/28 12 15 AC m NEB 07/28 1214 Ticagrelor 90 MG Q12HR 06/28 1115 AC 07/07 PO 07/28 1114 0829 Atropine Sulfate 0.5 MG ASDIR PRN 06/27 1600 AC IV 07/27 1559 Sodium Chloride 500 ML ASDIR PRN 06/27 1600 AC IV 07/27 1559 Sevelamer Carbonate 3,200 MG C MEALS 06/26 0800 AC 07/07 PO 07/26 0759 0827 Calcitriol 0.5 MCG DAILY 06/23 0900 AC 07/07 PO 07/23 0859 0828 Midodrine 5 MG 0900,1300,1700 06/23 09 AC 06/10 0 PO 07/23 0859 0829 Levothyroxine Sodium 150 MCG DAILY 0600 06/23 06 00 AC 07/07 PO 07/23 0559 0532 Buspirone HCl 5 MG BID 06/22 2100 AC 07/07 PO 07/22 2058 0828 Metoprolol Tartrate 12.5 MG Q12HR 06/22 2100 AC 07/07 PO 07/22 2058 0829 Pantoprazole 40 MG 0600,1800 06/22 1800 AC 07/07 PO 07/22 1759 0532 Midodrine 10 MG DIALYSIS-DOSE 06/22 1545 CKD BEFORE PO 07/22 1544 0800 Albumin Human 12.5 GM ASDIR PRN 06/22 1530 AC IV 07/23 1529 1909 Heparin Sodium 3,000 UNIT ASDIR PRN 06/22 1530 A C 07/06 (Porcine) DIALYSIS 07/22 1529 1058 Lidocaine HCl 0.5 ML ASDIR PRN 06/22 1530 CKD I-DERMAL 07/23 1529 Mannitol 12.5 GM ASDIR PRN 06/22 1530 AC IV 07/23 1529 Sodium Chloride 2,000 ML ASDIR PRN 06/22 1530 AC 07/06 IV 07/23 1529 1057 Sodium Chloride 5 ML ASDIR PRN 06/22 1530 AC IV 07/22 1529 Sodium Chloride 10 ML ASDIR PRN 06/22 1530 AC IV 07/22 1529 1100 Sodium Chloride 250 ML ASDIR PRN 06/22 1530 AC IV 07/22 1529 Aspirin 81 MG C BK 06/22 0800 AC 07/07 PO 07/22 0759 0829 Atorvastatin Calcium 40 MG 2100 06/21 2100 AC PO 07/21 205 2109 Insulin Human Lispro 0 AC HS 06/21 2100 AC 07/06 SUBQ 07/21 2059 1728 Dextrose/Water 125 ML ASDIR PRN 06/21 1900 CKD IV 07/21 1859 Dextrose/Water 250 ML ASDIR PRN 06/21 1900 CKD IV 07/21 1859 Glucagon 1 MG ASDIR PRN 06/21 1900 AC IM 07/21 1859 Melatonin 3 MG BEDTIME PRN PRN 06/21 1900 AC PO 07/21 1859 2027 Acetaminophen 650 MG Q4H PRN PRN 06/21 1730 AC 1 PO 07/21 1729 0208 Heparin Sodium 5,000 UNIT ASDIR PRN 06/21 1730 A C 06/22 IV 07/21 1729 1449 Nitroglycerin 0.4 MG Q5M PRN PRN 06/21 1730 AC SL 07/21 1729 Ondansetron HCl 4 MG Q6H PRN PRN 06/21 1730 AC 07/05 IV 07/21 1729 0042 Laboratory Tests: 07/06 07/06 07/06 195 1535 1232 Chemistry POC Glucose (70 - 110 MG/DL) 90 212 H 120 H Diagnosis, Assessment Plan Consultants: cardiology, cardiovascular surgery, nephrology, wound care Free Text DxA P Notes Free text DxA P notes: Assessment and plans: Three-vessel coronary artery disease CV surgery following. Dopplers, alexandro duplex were ordered patient is off the heparin drip on aspirin, Brilinta, atorvastatin, metoprolol -echo from OSH LVEF 50% cardiology seen -S/p PCI to left circumflex 06/27 Patient needs staged PCI to mid and proximal LAD in 1 to 2 weeks as outpatient Constipation -miralex. vaginal bleeding- fibroids 07/01 - bleeding for 2 weeks and had no vaginal bleeding for 15 years...ask director [employer] to see and check pelvic ultrasound. 07/02 - usg shows fibroids and director [employer] wants outpt f /u for endometrial bx. Severe PAD/toe ulcer: Status post MORPHOLOGIST and atherec cheri with CSI followed by MORPHOLOGIST with stable balloon on left anterior and posterior tibial artery, for r ight anterior and posterior tibial artery Will need staged intervention as p er cardiology. 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 Plan for peripheral angiogram in the morning as per c ardiology 06/29 Acute respiratory failure with hypoxemia Patient presented with supplemental nasal cannu la oxygen -Pulmonary edema, pleural effusion on CT chest, no PE Patient needs to be evaluated for home oxygen o nce patient is medically cleared for discharge On 2 L oxygen via nasal cannula 06/29 DuoNeb treatment Pulmonary consulted -Continue to optimize heart failure management, blood pressure control and Outpatient sleep study Leukocytosis: -CT chest result done -Afebrile -Patient has multiple ulcers in hands and feet. Wound cx growing ent fecalis, rocephin switched to unasyn 07/04 -blood culture 06/26 (was not ordered on admissi on) no growth till now 06/30- WBC increasing on unasyn. consult ID. ran prieto? 07/04- bone scan ordered for her toes. results p ending. 07/05 - bone scan negative for osteo End-stage renal disease on hemodialysis Patient is on a Sunday sched jaxon Banana Ripening Room Supervisor following Functional quadriplegia: Rehab consult as recommended by cardiology. Pat ient lives alone. 06/28 Elevated LFTs Secondary to hepatic congestion Monitor LFTs Type 2 diabetes mellitus on insulin sliding scale Diabetic diet Hypothyroidism Resume Synthroid Anemia of chronic disease -Transfuse for Hb <7 -No bleeding hypotension on midodrine on empiric IV CTX check labs in am SCD for DVT prophylaxis. Disposition: S/p PCI and 1 stent placement in le ft circumflex, plan for peripheral angiogram to right anterior and poste rior tibial artery. On 2 L oxygen via nasal cannula. On Unasyn. Patient ricki es alone. Case management consulted for inpatient rehab. Continue inpatien t care. 06/30- WBC worsening. ID consulted. awaiting tra nsfer to rehab. 07/01- WBC better. ABX changed from unas yn to VANC. pt c/o DUB. 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 07/02- Possible panic attack yesterday...to CCU..transfer back to telemetry. d/w bedside nurse. 07/03 - miralex for constipation. 07/04- Bone scan ordered for the toes. d /w case aide and plan is for SNF at [place]. awaiting insurance approval. 07/05 - awaiting SNF approval from insurance. 07/06 - d/w case management. awaiting insurance approval for SNF 07/07 - insurance rejected SNF...dc home with h/ h. [facility] VTE Prophylaxis VTE prophylaxis initiated: yes Current Medications Current medication review: I attest that the foregoing medication list in [facility] medical record is true, accurate, and complete to the best of my knowled ge. Electronically Signed by Adonis Gaytan MD on 06/10 at 1036 RPT #:[id number] END OF REPORT 2022-07-07 08:32:00-00:00 [facility] Cardiology Progress Note REPORT#:[id number] REPORT STATUS: Signed DATE:07/07/22 TIME: 831 PATIENT: MESERET MOTTA UNIT #: [id number] ROOM/BED: [place] [id number] : 56 AGE: 67 SEX: F ATTEND: Adonis Gaytan MD ADM AUTHOR: Sabrina Tirado NP * ALL edits or amendments must be made on the el [employer]/computer document * Subjective Chief complaint: stable, rehab denied plans for dc today Objective General VS/I O: Laboratory Tests 07/06/22 0540: [Embedded Image Not Available] Current Medications Sig/Enedina Start time Last Medication Dose Route Stop Time Status Admin Vancomycin HCl 750 MG ONCE ONE 07/06 1700 DC Sodium Chloride 250 ML IV 07/06 1759 1729 Hydrocodone Bitart/ 1 TAB Q4H PRN PRN 07/06 1300 AC 07/06 Acetaminophen PO 07/11 1259 1314 Morphine Sulfate 4 MG Q4H PRN PRN 07/06 1300 AC IV 07/11 1259 Calcium Carbonate 1,000 MG Q6H PRN PRN 07/04 164 5 AC 07/04 PO 08/03 1644 1708 Sennosides 8.6 MG BID 07/03 2100 AC 07/07 PO 08/02 2059 0828 Polyethylene Glycol 17 GM DAILY 07/03 1115 AC PO 08/02 1114 1425 Magnesium Hydroxide 30 ML BID PRN PRN 07/02 1345 AC 07/05 PO 08/01 1344 0038 Epoetin Vanesa-epbx 6,000 UNIT TuThSa@2100 07/01 2 300 AC 07/06 SUBQ 07/31 2259 2111 Miscellaneous 1 EACH ASDIR 06/30 1300 DC Information IV 07/30 1259 Lactulose 20 GM DAILY PRN PRN 06/30 1045 AC 06/09 8 PO 07/30 1044 0038 Docusate Sodium 100 MG BID 06/30 0900 AC 07/07 PO 07/30 0859 0829 Sodium Chloride 1 SPRAY Q2H PRN PRN 06/29 1015 A C 06/29 NASAL 07/29 1014 1724 Albuterol/Ipratropiu 3 ML RTQ4H PRN PRN 06/28 12 15 AC m NEB 07/28 1214 Ticagrelor 90 MG Q12HR 06/28 1115 AC 07/07 PO 07/28 1114 0829 Atropine Sulfate 0.5 MG ASDIR PRN 06/27 1600 AC IV 07/27 1559 Sodium Chloride 500 ML ASDIR PRN 06/27 1600 AC IV 07/27 1559 Sevelamer Carbonate 3,200 MG C MEALS 06/26 0800 AC 07/07 PO 07/26 0759 0827 Calcitriol 0.5 MCG DAILY 06/23 0900 AC 07/07 PO 07/23 0859 0828 Midodrine 5 MG 0900,1300,1700 06/23 0900 AC 12/3 0 PO 07/23 0859 0829 Levothyroxine Sodium 150 MCG DAILY 0600 06/23 06 00 AC 07/07 PO 07/23 0559 0532 Buspirone HCl 5 MG BID 06/22 2100 AC 07/07 PO 07/22 2058 0828 Metoprolol Tartrate 12.5 MG Q12HR 06/22 2100 AC 07/07 PO 07/22 2058 0829 Pantoprazole 40 MG 0600,1800 06/22 1800 AC 07/07 PO 07/22 175 0532 Midodrine 10 MG DIALYSIS-DOSE 06/22 1545 CKD BEFORE PO 07/22 1544 0800 Albumin Human 12.5 GM ASDIR PRN 06/22 1530 AC IV 07/23 1529 1909 Heparin Sodium 3,000 UNIT ASDIR PRN 06/22 1530 A C 07/06 (Porcine) DIALYSIS 07/22 1529 1058 Lidocaine HCl 0.5 ML ASDIR PRN 06/22 1530 CKD I-DERMAL 07/23 1529 Mannitol 12.5 GM ASDIR PRN 06/22 1530 AC IV 07/23 1529 Sodium Chloride 2,000 ML ASDIR PRN 06/22 1530 AC 07/06 IV 07/23 1529 1057 Sodium Chloride 5 ML ASDIR PRN 06/22 1530 AC IV 07/22 1529 Sodium Chloride 10 ML ASDIR PRN 06/22 1530 AC IV 07/22 1529 1100 Sodium Chloride 250 ML ASDIR PRN 06/22 1530 AC IV 07/22 1529 Aspirin 81 MG C BK 06/22 0800 AC 07/07 PO 07/22 075 0829 Atorvastatin Calcium 40 MG 2100 06/21 2100 AC PO 07/21 2058 210 Insulin Human Lispro 0 AC HS 06/21 2100 AC 07/06 SUBQ 07/21 205 1728 Dextrose/Water 125 ML ASDIR PRN 06/21 1900 CKD IV 07/21 1859 Dextrose/Water 250 ML ASDIR PRN 06/21 1900 CKD IV 07/21 1859 Glucagon 1 MG ASDIR PRN 06/21 1900 AC IM 07/21 1859 Melatonin 3 MG BEDTIME PRN PRN 06/21 1900 AC PO 011858 Acetaminophen 650 MG Q4H PRN PRN 06/21 1730 AC 1 PO 07/21 1729 0208 Heparin Sodium 5,000 UNIT ASDIR PRN 06/21 1730 A C 06/22 IV 07/21 1729 1449 Nitroglycerin 0.4 MG Q5M PRN PRN 06/21 1730 AC SL 07/21 172 Ondansetron HCl 4 MG Q6H PRN PRN 06/21 173 AC 1 09/05 IV 07/21 1729 0042 24 hour I O ending at 0700: 07/07 0700 07/06 1900 Intake Total Output Total 3500 Balance -3500 Output, 3500 Hemodialysis Vital Signs: Date Time Temp Pulse Resp B/P B/P Pulse O2 O2 F low FiO2 Mean Ox Delivery Rate 07/07 1033 37.0 75 16 112/66 81.3 100 Nasal cannula 07/07 1031 Nasal 2 cannula 07/07 0717 36.8 82 16 118/63 81.1 95 Room air 07/07 0413 36.9 80 18 125/67 86.3 99 07/07 0049 36.8 85 17 115/66 82.7 99 07/06 2000 Nasal 22 cannula 07/06 1905 37.0 81 16 159/70 99.7 99 07/06 1538 36.8 71 18 128/63 84.8 100 Nasal 3 cannula PATIENT WEIGHT: Weight (lb): 245 Weight (oz): 9.52 Weight (kg): 111.13 Physical Exam General appearance: alert, awake, oriented, no a cute distress Head/Eyes: atraumatic, PERRL Neck: non-tender, no JVD Cardiovascular: CV assessment: regular rate and rhythm Respiratory: decreased breath sounds, on oxygen, no distress Abdomen: non-tender, obese Genitourinary: no flank pain, no urinary cathete r Lower extremity: LE assessment: normal capillary refill, normal temperature, no edema Musculoskeletal: normal inspection Neuro/SURGICAL SPECIALIST: alert, oriented X 3, normal speech Skin: scabs lower extremities Ulcer: Type/cause: diabetic, arterial Location: foot (bilateral toes) Psychiatry: normal affect, normal mood Diagnosis, Assessment Plan Consultants: cardiology, cardiovascular surgery, nephrology, wound care Free Text DxA P Notes Free Text DxA P Notes: 67 YO female with PMHx of HTN, DM, CHF, ESRD on HD who initially presented at [facility] with SOB and fatigue. Sh e was treated for NSTEMI and acute CHF exacerbation. 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 She is transferred her for CABG evaluation but deemed too high risk for CABG with STS risk score of 17%. 1. NSTEMI/Multivessel CAD 06/27/22: s/p PCI to LCx wit h 2.25 x 20 mm and post dilated with 2.5 NC balloon continue ASA, Brilinta, BB, and statin need staged PCI to mid and proximal LAD (once re hab is completed) stable 2. Acute on chronic Diastolic CHF volume management per nephrology echo from OSH LVEF 50% 3. ESRD on HD per nephrology 4. Diabetes mellitus per admitting team 5. Hypertension -> orthostatic hypotension on midodrine continue low-dose beta-susan for CAD 6. Toe ulcers/severe PAD 06/26/21: s/p peripheral angiogram and MORPHOLOGIST to th e anterior tibial artery ORE ROASTER of right anterior/posterior tibial artery, n eed staged intervention on a later date 7. Debility PT/OT- SNF denied plans to dc home today, advised outpatient fu so further interventions can be arranged Electronically Signed by Sabrina Tirado NP on at 1124 Electronically Signed by Herson Tang MD on at 1019 RPT #:[id number] END OF REPORT 2022-07-07 07:34:00-00:00 [facility]) Nephrology Progress Note REPORT#:[id number] REPORT STATUS: Signed DATE:07/07/22 TIME: 733 PATIENT: MESERET MOTTA UNIT #: [id number] [place] [facility] [place] AGE: 67 SEX: F ATTEND: Adonis Gaytan MD ADM AUTHOR: Jennifer Shelton MD * ALL edits or amendments must be made on the el [employer]/computer document * See Addendum Subjective Chief complaint: Transferred for CABG HPI: Patient seen and evaluated, discussed with care team, 67-year-old female with history of end-stage renal d isease on chronic hemodialysis Sunday, and Sunday, diabetes mellitus, peripheral arterial disease and hypertension who was transferred to [facility] for CABG. Terrence quevedo initially presented to [facility] in [place] compl aining of shortness of breath. Underwent left heart cath which showed diffuse di sease and patient was transferred for evaluation for CABG. renal consult was requ ested for management of her end-stage renal disease/ hemodialysis. Patient reports: Yes: complaints. Comments: Patient seen and evaluated, HPI no change from i nitial, feels okay. Review of Systems Constitutional: Reports: fatigue. Denies: chills, fever. Skin: Denies: abrasion, bruising. Allergy/Immun: Denies: hives, itching. Eyes: Denies: redness, discharge. ENT: Denies: ear drainage, ear ringing. Respiratory: Denies: hemoptysis, SOB. Cardiovascular: Denies: chest pain. Objective General VS/I O: Vital Signs: Date Time Temp Pulse Resp B/P B/P Pulse O2 O2 F low FiO2 Mean Ox Delivery Rate 07/07 0717 36.8 82 16 118/63 81.1 95 Room air 07/07 0413 36.9 80 18 125/67 86.3 99 07/07 0049 36.8 85 17 115/66 82.7 99 07/06 2000 Nasal 22 cannula 07/06 1905 37.0 81 16 159/70 99.7 99 07/06 1538 36.8 71 18 128/63 84.8 100 Nasal 3 cannula 07/06 0910 36.6 82 18 157/79 97 Nasal 4 cannula 07/06 0800 Nasal 3 cannula 07/06 0742 36.7 78 17 103/61 75.3 100 Nasal 4 cannula 24 hour I O ending at 0700: 07/07 0700 07/06 1900 Intake Total Output Total 3500 Balance -3500 Output, 3500 Hemodialysis PATIENT WEIGHT: Weight (lb): 245 Weight (oz): 9.52 Weight (kg): 111.13 Medications Active Meds + DC'd Last 24 Hrs Vancomycin HCl (VANCOMYCIN HCL) 750 MG ONCE ONE IV (DC) Sodium Chloride (SODIUM CHLORIDE 0.9%) 250 ML Hydrocodone Bitart/Acetaminophen (NORCO 5/325) 1 TAB Q4H PRN PRN PO Morphine Sulfate (morphine SULFATE) 4 MG Q4H PRN PRN IV Calcium Carbonate (TUMS CHEW TAB) 1,000 MG Q6H P RN PRN PO Sennosides (Senna Lax 8.6 MG TABLET) 8.6 MG BID PO Polyethylene Glycol (MIRALAX) 17 GM DAILY PO Magnesium Hydroxide (MILK OF MAGNESIA) 30 ML BID PRN PRN PO Epoetin Vanesa-epbx (RETACRIT) 6,000 UNIT TuThSa@2 100 SUBQ Mupirocin (BACTROBAN 2% 22 GM OINTMENT) 1 APPLIC BID NASAL (DC) Miscellaneous Information (VANCOMYCIN PHARMACY T O DOSE) 1 EACH ASDIR IV (CKD) Lactulose (LACTULOSE) 20 GM DAILY PRN PRN PO Docusate Sodium (COLACE) 100 MG BID PO Sodium Chloride (OCEAN) 1 SPRAY Q2H PRN PRN NASA L Albuterol/Ipratropium (DUONEB) 3 ML RTQ4H PRN DC N NEB Ticagrelor (BRILINTA) 90 MG Q12HR PO Atropine Sulfate (ATROPINE SULFATE 0.1MG/ML SYR) 0.5 MG ASDIR PRN IV Sodium Chloride (SODIUM CHLORIDE 0.9%) 500 ML DIR PRN IV Sevelamer Carbonate (RENVELA) 3,200 MG C MEALS P O Calcitriol (RocaltroL) 0.5 MCG DAILY PO Midodrine (PROAMATINE) 5 MG 0900,1300,1700 PO Levothyroxine Sodium (LEVOTHYROXINE SODIUM) 150 MCG DAILY 0600 PO Buspirone HCl (BUSPAR) 5 MG BID PO Metoprolol Tartrate (LOPRESSOR) 12.5 MG Q12HR PO Pantoprazole (PROTONIX) 40 MG 0600,1800 PO Midodrine (PROAMATINE) 10 MG DIALYSIS-DOSE BEFOR E PO (CKD) Albumin Human (ALBUMINAR-25%) 12.5 GM ASDIR PRN IV Heparin Sodium (Porcine) (HEPARIN SODIUM) 3,000 UNIT ASDIR PRN DIALYSIS Lidocaine HCl (LIDOCAINE HCL/PF) 0.5 ML ASDIR DC N I-DERMAL (CKD) Mannitol (MANNITOL 25% 12.5GM/50ML) 12.5 GM ASDI R PRN IV Sodium Chloride (SODIUM CHLORIDE 0.9%) 2,000 ML ASDIR PRN IV Sodium Chloride (SODIUM CHLORIDE) 5 ML ASDIR PRN IV Sodium Chloride (SODIUM CHLORIDE) 10 ML ASDIR DC N IV Sodium Chloride (SODIUM CHLORIDE 0.9%) 250 ML DIR PRN IV Aspirin (ASPIRIN) 81 MG C BK PO Atorvastatin Calcium (LIPITOR) 40 MG 2100 PO Insulin Human Lispro (HUMALOG) 0 AC HS SUBQ Dextrose/Water (DEXTROSE 10% IN WATER) 125 ML DIR PRN IV (CKD) Dextrose/Water (DEXTROSE 10% IN WATER) 250 ML DIR PRN IV (CKD) Glucagon (GLUCAGON) 1 MG ASDIR PRN IM Melatonin (Melatonin) 3 MG BEDTIME PRN PRN PO Acetaminophen (TYLENOL) 650 MG Q4H PRN PRN PO Heparin Sodium (HEPARIN 5000 UNITS/ML) 5,000 UNI T ASDIR PRN IV Nitroglycerin (NITROSTAT) 0.4 MG Q5M PRN PRN SL Ondansetron HCl (ZOFRAN) 4 MG Q6H PRN PRN IV Physical Exam General appearance: alert, no acute distress Head/eyes: atraumatic, normocephalic ENT: normal nose Neck: non-tender, supple/no meningismus Cardiovascular: normal heart sounds, no rub Respiratory: aerating well, symmetric expansion Abdomen: non-tender, soft Genitourinary: no flank pain Extremities: pitting edema, non-tender Musculoskeletal: no CVA tenderness, no tendernes s Neuro/SURGICAL SPECIALIST: alert, normal speech Skin: dry, intact Ulcer: Type/cause: diabetic, arterial Location: foot (bilateral toes) Results Findings/Data: Laboratory Tests 07/06 07/06 07/06 1955 1535 1232 Chemistry POC Glucose (70 - 110 MG/DL) 90 212 H 120 H Diagnosis, Assessment Plan Free Text A P: Patient seen and evaluated, discussed with care team, images and laboratories reviewed. End-stage renal disease on c hronic hemodialysis, Sunday, and Sunday, plan for hemodialysis today Status post left heart cath with multi-vessel co ronary artery disease, respiratory evaluation for CABG. Hypertension: Monitor blood pressure closely and adjust medications as needed Hyperlipidemia: Lipitor Diabetes mellitus: Insulin: Monitor blood sugar closely adjust medications as needed Anemia: We will start Epogen 4000 subcu 3 times a week Elevated alkaline phosphatase we will check PTH. 06/23/2022 plan for filtration today if her bloo d pressure allows, had hemodialysis yesterday. See showed hemoglobin 9. 1, platelet 136, blood count 12.1. We will increase Epoge n to 6000 subcu 3 times a week, PTH 660 we will add Rocaltrol 0.5 mcg p.o. daily, will add midodrine 5 mg p.o. 3 times daily to allow for ultrafiltration. 06/24/2022 laboratory for th is morning showed sodium 136, potassium 4.9, CO2 23, BUN 50, creatinine 5.8, phos phorus 7.1 we will add Renvela 2 p.o. with each meal , hemoglobin 9.3, platelet 152, blood count 13.3 , for hemodialysis today, 4 hours, 2K, ultrafiltration 3 to 4 L if tolerated , seen during HD. 06/25/2022 laboratory this tiffany mcfarland showed sodium 137, potassium 4.3, CO2 25, BUN 31, creatinine 4.5, alkaline phosphatase 272, st atus post ultrafiltration yesterday, 3.9 L removed, plan for dialysis in t he morning. 06/26/2022 laboratory this tiffany mcfarland showed sodium 137, potassium 4.4, CO2 22, BUN 39, creatinine 5.4, hemoglob in 9.8, platelet 145, blood count 14, phosphorus 6.8 we will increase Renvela to 4 p.o. with each meal, plan for hemodialysis today, 4 hours, 3K, ultrafiltration 3 to 4 L if tolerat ed 06/27/2022 status post peripheral angiogram/inte rvention yesterday, only had less than 2 hours of dialysis yesterday due to hypotension postprocedure, will plan on hemodialysis today, 4 hours, 3K, ultrafiltration 3 to 4 L if tolerated 06/28/2022 status post hemodialysis yesterday, w ill plan for ultrafiltration today 3 to 4 L if tolerated. Laboratory this manav barba showed sodium 136, potassium 4.2, CO2 22, BUN 22, creatinine 3.9, h emoglobin 8.9, platelet 149, blood count 10.8 06/29/2022 status post ultrafiltration yesterday 4 L removed, plan for hemodialysis today, 4 hours, 3K, ultrafiltration 3 to 4 L if tolerated. 06/30/2022 laboratory this tiffany mcfarland showed sodium 138, potassium 4.2, CO2 24, BUN 22, creatinine 4.1, hemoglobin 9.2, plat elet 195, white blood count 12, status post hemodialysis yesterday, 3 L removed. 07.01.22: Pt feels better. For HD today. will us e K2 [place]. I was then notified her RN that the pt has code blue in the radiology depertment. she is now alert and awake. will continue dialysis without any ch anges in the original order. 07.02.22: pt had code blue yesterday. Did not lo ose pulse. she thinks it was panic attack. had dialysis yesterday with net ne gative fo 3L. Feels better today. BP has been stable and So2 is 100%. will resume TTS schedule. Electrolyts and BMD are all well controlled. 07/03/2022 laboratory this morning showe d sodium 142, potassium 4, CO2 26, BUN 24, creatinine 4.5, hemoglobin 8.7, platelet 203 , blood count 8.8, plan for dialysis in the morning. 07/04/2022 for hemodialysis today, 4 hours, 3K, ultrafiltration 3 to 4 L if tolerated, seen during HD 07/05/2022 status post hemodialysis yesterday, p redialysis labs reviewed and acceptable, plan for dialysis in the morning, wi ll check predialysis labs. 07/06/2022 plan for hemodial ysis today, 4 hours, 3K, ultrafiltration 3 to 4 L if tolerated 07/07/2022 status post hemodialysis yesterday, p jose e for hemodialysis in the morning, will check predialysis labs. seen yanci ramesh HD. Consultants: cardiology, cardiovascular surgery, nephrology, wound care Electronically Signed by Jennifer Shelton MD on at 0848 Addendum 1: 07/07/22 0849 by Jennifer Shelton MD Patient is scheduled for HD in AM, seen during HD sentence added by mistake was meant for another patient Electronically Signed by Jennifer Shelton MD on at 0850 RPT #:[id number] END OF REPORT 2022-07-07 06:23:00-00:00 [facility] Re[facility] Progress Note REPORT#:[id number] REPORT STATUS: Signed DATE:07/07/22 TIME: 06 PATIENT: MESERET MOTTA UNIT #: [id number] ROOM/BED: [place] [id number] : 56 AGE: 67 SEX: F ATTEND: Adonis Gaytan MD ADM AUTHOR: Shelton Vega * ALL edits or amendments must be made on the el [employer]/computer document * Subjective Chief complaint: rehab follow-up feeling good denies dizziness or sob NAD Denies TABARES/N/V/D/CP 14 systems reviewed and neg. except that above. Objective General VS: Vital Signs: Date Time Temp Pulse Resp B/P B/P Pulse O2 O2 F low FiO2 Mean Ox Delivery Rate 07/07 0413 98.4 80 18 125/67 86.3 99 07/07 0049 98.2 85 17 115/66 82.7 99 07/06 2000 Nasal 22 cannula 07/06 1905 98.6 81 16 159/70 99.7 99 07/06 1538 98.2 71 18 128/63 84.8 100 Nasal 3 cannula 07/06 0910 97.8 82 18 157/79 97 Nasal 4 cannula 07/06 0800 Nasal 3 cannula 07/06 0742 98.1 78 17 103/61 75.3 100 Nasal 4 cannula PATIENT WEIGHT: Weight (lb): 245 Weight (oz): 9.52 Weight (kg): 111.13 Medications: Active Meds + DC'd Last 24 Hrs Vancomycin HCl (VANCOMYCIN HCL) 750 MG ONCE ONE IV (DC) Sodium Chloride (SODIUM CHLORIDE 0.9%) 250 ML Hydrocodone Bitart/Acetaminophen (NORCO 5/325) 1 TAB Q4H PRN PRN PO Morphine Sulfate (morphine SULFATE) 4 MG Q4H PRN PRN IV Calcium Carbonate (TUMS CHEW TAB) 1,000 MG Q6H P RN PRN PO Sennosides (Senna Lax 8.6 MG TABLET) 8.6 MG BID PO Polyethylene Glycol (MIRALAX) 17 GM DAILY PO Magnesium Hydroxide (MILK OF MAGNESIA) 30 ML BID PRN PRN PO Epoetin Vanesa-epbx (RETACRIT) 6,000 UNIT TuThSa@2 100 SUBQ Mupirocin (BACTROBAN 2% 22 GM OINTMENT) 1 APPLIC BID NASAL (DC) Miscellaneous Information (VANCOMYCIN PHARMACY T O DOSE) 1 EACH ASDIR IV (CKD) Lactulose (LACTULOSE) 20 GM DAILY PRN PRN PO Docusate Sodium (COLACE) 100 MG BID PO Sodium Chloride (OCEAN) 1 SPRAY Q2H PRN PRN NASA L Albuterol/Ipratropium (DUONEB) 3 ML RTQ4H PRN DC N NEB Ticagrelor (BRILINTA) 90 MG Q12HR PO Atropine Sulfate (ATROPINE SULFATE 0.1MG/ML SYR) 0.5 MG ASDIR PRN IV Sodium Chloride (SODIUM CHLORIDE 0.9%) 500 ML DIR PRN IV Sevelamer Carbonate (RENVELA) 3,200 MG C MEALS P O Calcitriol (RocaltroL) 0.5 MCG DAILY PO Midodrine (PROAMATINE) 5 MG 0900,1300,1700 PO Levothyroxine Sodium (LEVOTHYROXINE SODIUM) 150 MCG DAILY 0600 PO Buspirone HCl (BUSPAR) 5 MG BID PO Metoprolol Tartrate (LOPRESSOR) 12.5 MG Q12HR PO Pantoprazole (PROTONIX) 40 MG 0600,1800 PO Midodrine (PROAMATINE) 10 MG DIALYSIS-DOSE BEFOR E PO (CKD) Albumin Human (ALBUMINAR-25%) 12.5 GM ASDIR PRN IV Heparin Sodium (Porcine) (HEPARIN SODIUM) 3,000 UNIT ASDIR PRN DIALYSIS Lidocaine HCl (LIDOCAINE HCL/PF) 0.5 ML ASDIR DC N I-DERMAL (CKD) Mannitol (MANNITOL 25% 12.5GM/50ML) 12.5 GM ASDI R PRN IV Sodium Chloride (SODIUM CHLORIDE 0.9%) 2,000 ML ASDIR PRN IV Sodium Chloride (SODIUM CHLORIDE) 5 ML ASDIR PRN IV Sodium Chloride (SODIUM CHLORIDE) 10 ML ASDIR DC N IV Sodium Chloride (SODIUM CHLORIDE 0.9%) 250 ML DIR PRN IV Aspirin (ASPIRIN) 81 MG C BK PO Atorvastatin Calcium (LIPITOR) 40 MG 2100 PO Insulin Human Lispro (HUMALOG) 0 AC HS SUBQ Dextrose/Water (DEXTROSE 10% IN WATER) 125 ML DIR PRN IV (CKD) Dextrose/Water (DEXTROSE 10% IN WATER) 250 ML DIR PRN IV (CKD) Glucagon (GLUCAGON) 1 MG ASDIR PRN IM Melatonin (Melatonin) 3 MG BEDTIME PRN PRN PO Acetaminophen (TYLENOL) 650 MG Q4H PRN PRN PO Heparin Sodium (HEPARIN 5000 UNITS/ML) 5,000 UNI T ASDIR PRN IV Nitroglycerin (NITROSTAT) 0.4 MG Q5M PRN PRN SL Ondansetron HCl (ZOFRAN) 4 MG Q6H PRN PRN IV Functional Progress Functional progress: Gait Device RW Weightbearing: No Restriction Ambulation Distance: 50 FT Progression: Forward Backward Lateral, Right Lateral, Left Assistance Level: Supervision or Set-up Gait Deviations: STEPPAGE GAIT L LE SLOW [facility] Mobility: Yes Advanced Progression: No Effects of Treatment: Balance Improved Function Improved Gait quality improved Post TX Precautions: IN BED CALL BUTTON WITHIN REACH O2 on Review Plan of Care: Yes PT charges: Gait Training [id number] Gait Cmt: PATIENT POST HD. AGREEABLE TO GAIT T RNG TO TOLERANCE DUE TO C/O FATIGUE POST HD. PATIENT PERFORMED 50 FT OF GAIT W/ RW SPV ON 4 LPM OF 02. If this is the patient's last treatment, this e ntry serves as the discharge summary: Y Start Time: 1400 Stop Time: 1410 Treatment Time : ( minutes) 0:10 Completed by: Monroe Kaufman . BED MOBILITY: Yes Rolling Right/Left: Modified [place] Supine to Sit: Modified [place] Sit to Supine: Modified [place] Scooting in bed: Modified [place] TRANSFERS: Yes Bed to/from chair: Modified [place] Sit to/from stand: Modified [place] Comments: USE RW FOR STABILITY AND CONTINOUS O2 AT 4 LPM Physical Exam General appearance: alert, awake Psych: alert, oriented x 3 HEENT: anicteric, mucosal membranes moist Neck: supple, no JVD Cardiovascular: regular rate rhythm, no murmur Respiratory: aerating well, clear bilaterally Abdomen: bowel sounds present, non-distended, so ft, non-tender Skin: BLE and hand multi wounds Ulcer: Type/cause: diabetic, arterial Location: foot (bilateral toes) Musculoskeletal - general: Musculoskeletal - general: swelling (BLE), MMT BUE +3/5 BLE HF -3/5 KE +3/5 Neuro/SURGICAL SPECIALIST: sensory deficit ( decrease BLE), alert, oriented X 3, CNII-XII intact, normal speech Genitourinary: Results Findings/Data: Laboratory Tests 07/06 1535 1232 0540 0540 Chemistry Sodium (134 - 147 mEq/L) 140 Potassium (3.4 - 5.0 mEq/L) 4.4 Chloride (100 - 108 mEq/L) 101 Carbon Dioxide (21 - 33 mEq/l) 30 Anion Gap (0 - 20) 14 BUN (7 - 18 mg/dL) 31 H Creatinine (0.6 - 1.3 mg/dL) 4.4 H Glomerular Filtr Rate (80 - 90) 10.5 L Glucose (70 - 110 mg/dL) 167 H POC Glucose (70 - 110 MG/DL) 90 212 H 120 H Calcium (8.0 - 10.5 mg/dL) 9.5 Ionized Calcium Anthony (1.09 - 1.30 MMOL/L) 1.21 Phosphorus (2.5 - 4.9 MG/DL) 2.3 L Magnesium (1.80 - 2.40 mg/dL) 2.18 07/06 07/05 07/05 07/05 07/05 0528 1842 1524 1142 0524 Chemistry POC Glucose (70 - 110 MG/DL) 175 H 167 H 127 H 177 H 153 H 07/04 07/04 07/04 07/04 1939 1634 1204 1010 Chemistry POC Glucose (70 - 110 MG/DL) 165 H 188 H 132 H 131 H Laboratory Tests 07/06 0540 Hematology WBC (4.5 - 11.0 x10 3/uL) 7.7 RBC (3.54 - 5.02 x10 6/uL) 2.92 L Hgb (11.0 - 15.0 g/dL) 8.8 L Hct (33.0 - 45.0 %) 29.4 L MCV (81.0 - 99.0 fL) 100.7 H MCH (27.0 - 33.0 pg) 30.1 MCHC (33.0 - 37.0 g/dL) 29.9 L RDW (11.5 - 14.5 %) 15.1 H Plt Count (150 - 400 x10 3/uL) 160 MPV (7.0 - 9.0 fL) 9.5 H Neut % (Auto) (56.0 - 77.0 %) 79.5 H Lymph % (Auto) (14.0 - 32.0 %) 7.7 L Kerr % (Auto) (4.8 - 9.0 %) 9.5 H Eos % (Auto) (0.3 - 3.7 %) 2.7 Baso % (Auto) (0.0 - 2.0 %) 0.1 Neut # (Auto) (2.0 - 7.6 x10 3/uL) 6.08 Lymph # (Auto) (1.0 - 3.8 x10 3/uL) 0.59 L Kerr # (Auto) (0.1 - 0.8 x10 3/uL) 0.73 Eos # (Auto) (0.0 - 0.2 x10 3/uL) 0.21 H Baso # (Auto) (0.0 - 0.2 x10 3/uL) 0.01 Abs Immat Gran (auto) (0.00 - 0.03 x10 3/uL) 0. 04 H Add Manual Diff NO Immature Gran % (0.0 - 2.0 %) 0.5 Nucleated RBC % (0 - 0 %) 0.0 Nucleated RBCs # (Man) (0.0 - 0.1 x10 3/uL) 0.0 0 Laboratory Tests 07/06 0540 Toxicology Random Vancomycin (mcg/mL) 20.2 Recent Impressions: NUCLEAR MEDICINE - NM BONE 3 PHASE 07/04 0700 Report Impression - Status: SIGNED Entered: 07/04/2022 7250 IMPRESSION: 1. No evidence of cellulitis or osteomyelitis. 2. Active osseous abnormality in the inferior an d posterior calcaneus bilaterally likely representing degene rative change as noted on the left foot plain radiographs. Impression By: [email or web address] - Tiffany Caban Diagnosis, Assessment Plan Free Text A P: 67-year-old female with weakness and impaired mo bility 2/2 cardiac myopathy positive for NSTEMI Multivessel CAD, acute on ch ronic diastolic heart failure -End-stage renal disease on hemodialysis -Severe PVD-(s/p MORPHOLOGIST and ath erectomy with CSI followed by MORPHOLOGIST with TAVR balloon on left anterior and posterior tibial artery. CT O of right anterior/posterior tibial artery) -Uremic Neuropathy -Uremic Myopathy -Generalized weakness -Impaired mobility, gait, balance, ADLs, and end urance -Acute hypoxemia resp failure -Acute on chronic diastolic HF -Diabetes type 2 with hyperglycemia -Hypertension -COPD -Multiple wounds on feet and hands Plan: Continue supportive and preventative care Wound care team is following wound care manageme nt Continue PT/OT Out of bed to chair Work on ADLs, strength, bed mobility, transfers, gait DVT prophylaxis on SCD Strict fall and safety precautions Monitor p.o. intake and nutrition Strict decubitus precautions Monitor labs Wound care on outsole caser labs Advance therapies as tolerated. Pt. no longer wants IRF. Wan ts snf in [place]. Discussed with CM. Order for SNF placed. Total time was 33 minutes > 50% with patient per forming physical examination, discussing plan of care, goals, therapies, progr ess, medications, labs. All questions answered Consultants: cardiology, cardiovascular surgery, nephrology, wound care Rehab attestation: . Electronically Signed by Shelton Vega on 1 at 1934 RPT #:[id number] END OF REPORT 2022-07-06 21:27:00-00:00 [facility]) Wound Care Progress Note REPORT#:[id number] REPORT STATUS: Signed DATE:07/06/22 TIME: 2126 PATIENT: MESERET MOTTA UNIT #: [id number] ROOM/BED: 4404-1 : 56 AGE: 67 SEX: F ATTEND: Adonis Gaytan MD ADM AUTHOR: Sybil Byers MD * ALL edits or amendments must be made on the el [employer]/computer document * Subjective Chief complaint: Woundcare FU for foot leg ulcers; less pain, imp roving. Late entry; px seen 12 noon Objective General Medications: Active Meds + DC'd Last 24 Hrs Vancomycin HCl (VANCOMYCIN HCL) 750 MG ONCE ONE IV (DC) Sodium Chloride (SODIUM CHLORIDE 0.9%) 250 ML Hydrocodone Bitart/Acetaminophen (NORCO 5/325) 1 TAB Q4H PRN PRN PO Morphine Sulfate (morphine SULFATE) 4 MG Q4H PRN PRN IV Calcium Carbonate (TUMS CHEW TAB) 1,000 MG Q6H P RN PRN PO Sennosides (Senna Lax 8.6 MG TABLET) 8.6 MG BID PO Polyethylene Glycol (MIRALAX) 17 GM DAILY PO Magnesium Hydroxide (MILK OF MAGNESIA) 30 ML BID PRN PRN PO Epoetin Vanesa-epbx (RETACRIT) 6,000 UNIT TuThSa@2 100 SUBQ Mupirocin (BACTROBAN 2% 22 GM OINTMENT) 1 APPLIC BID NASAL (DC) Miscellaneous Information (VANCOMYCIN PHARMACY T O DOSE) 1 EACH ASDIR IV (CKD) Lactulose (LACTULOSE) 20 GM DAILY PRN PRN PO Docusate Sodium (COLACE) 100 MG BID PO Sodium Chloride (OCEAN) 1 SPRAY Q2H PRN PRN NASA L Albuterol/Ipratropium (DUONEB) 3 ML RTQ4H PRN P RN NEB Ticagrelor (BRILINTA) 90 MG Q12HR PO Atropine Sulfate (ATROPINE SULFATE 0.1MG/ML SYR) 0.5 MG ASDIR PRN IV Sodium Chloride (SODIUM CHLORIDE 0.9%) 500 ML DIR PRN IV Sevelamer Carbonate (RENVELA) 3,200 MG C MEALS P O Calcitriol (RocaltroL) 0.5 MCG DAILY PO Midodrine (PROAMATINE) 5 MG 0900,1300,1700 PO Levothyroxine Sodium (LEVOTHYROXINE SODIUM) 150 MCG DAILY 0600 PO Buspirone HCl (BUSPAR) 5 MG BID PO Metoprolol Tartrate (LOPRESSOR) 12.5 MG Q12HR PO Pantoprazole (PROTONIX) 40 MG 0600,1800 PO Midodrine (PROAMATINE) 10 MG DIALYSIS-DOSE BEFOR E PO (CKD) Albumin Human (ALBUMINAR-25%) 12.5 GM ASDIR PRN IV Heparin Sodium (Porcine) (HEPARIN SODIUM) 3,000 UNIT ASDIR PRN DIALYSIS Lidocaine HCl (LIDOCAINE HCL/PF) 0.5 ML ASDIR DC N I-DERMAL (CKD) Mannitol (MANNITOL 25% 12.5GM/50ML) 12.5 GM ASDI R PRN IV Sodium Chloride (SODIUM CHLORIDE 0.9%) 2,000 ML ASDIR PRN IV Sodium Chloride (SODIUM CHLORIDE) 5 ML ASDIR PRN IV Sodium Chloride (SODIUM CHLORIDE) 10 ML ASDIR DC N IV Sodium Chloride (SODIUM CHLORIDE 0.9%) 250 ML DIR PRN IV Aspirin (ASPIRIN) 81 MG C BK PO Atorvastatin Calcium (LIPITOR) 40 MG 2100 PO Insulin Human Lispro (HUMALOG) 0 AC HS SUBQ Dextrose/Water (DEXTROSE 10% IN WATER) 125 ML DIR PRN IV (CKD) Dextrose/Water (DEXTROSE 10% IN WATER) 250 ML DIR PRN IV (CKD) Glucagon (GLUCAGON) 1 MG ASDIR PRN IM Melatonin (Melatonin) 3 MG BEDTIME PRN PRN PO Acetaminophen (TYLENOL) 650 MG Q4H PRN PRN PO Heparin Sodium (HEPARIN 5000 UNITS/ML) 5,000 UNI T ASDIR PRN IV Nitroglycerin (NITROSTAT) 0.4 MG Q5M PRN PRN SL Ondansetron HCl (ZOFRAN) 4 MG Q6H PRN PRN IV Dietitian Nutrition assessment The data set between the solid lines has been im ported from the dietitian's assessment. BMI Calculated: 39.5 Nutrition related diagnosis: Nutrition diagnosis details: Nutrition problem: Nutrition etiology: Nutrition signs and symptoms: Nutrition prescription: Dietitian name: Assessment completed: Physical Exam General appearance: awake Skin: Ulcers on dorsum toes, L>R,improving, w le ss erythema @ forefoot, some scabs coming off. LLE warm, RLE cold to touch. Ulcer: Type/cause: diabetic, arterial Location: foot (bilateral toes) Results Findings/Data: Laboratory Tests: 07/06 07/06 07/06 07/06 1955 1535 1232 0540 Chemistry POC Glucose (70 - 110 MG/DL) 90 212 H 120 H Ionized Calcium Anthony (1.09 - 1.30 MMOL/L) 1.21 07/06 07/06 0540 0528 Chemistry Sodium (134 - 147 mEq/L) 140 Potassium (3.4 - 5.0 mEq/L) 4.4 Chloride (100 - 108 mEq/L) 101 Carbon Dioxide (21 - 33 mEq/l) 30 Anion Gap (0 - 20) 14 BUN (7 - 18 mg/dL) 31 H Creatinine (0.6 - 1.3 mg/dL) 4.4 H Glomerular Filtr Rate (80 - 90) 10.5 L Glucose (70 - 110 mg/dL) 167 H POC Glucose (70 - 110 MG/DL) 175 H Calcium (8.0 - 10.5 mg/dL) 9.5 Phosphorus (2.5 - 4.9 MG/DL) 2.3 L Magnesium (1.80 - 2.40 mg/dL) 2.18 Hematology WBC (4.5 - 11.0 x10 3/uL) 7.7 RBC (3.54 - 5.02 x10 6/uL) 2.92 L Hgb (11.0 - 15.0 g/dL) 8.8 L Hct (33.0 - 45.0 %) 29.4 L MCV (81.0 - 99.0 fL) 100.7 H MCH (27.0 - 33.0 pg) 30.1 MCHC (33.0 - 37.0 g/dL) 29.9 L RDW (11.5 - 14.5 %) 15.1 H Plt Count (150 - 400 x10 3/uL) 160 MPV (7.0 - 9.0 fL) 9.5 H Neut % (Auto) (56.0 - 77.0 %) 79.5 H Lymph % (Auto) (14.0 - 32.0 %) 7.7 L Kerr % (Auto) (4.8 - 9.0 %) 9.5 H Eos % (Auto) (0.3 - 3.7 %) 2.7 Baso % (Auto) (0.0 - 2.0 %) 0.1 Neut # (Auto) (2.0 - 7.6 x10 3/uL) 6.08 Lymph # (Auto) (1.0 - 3.8 x10 3/uL) 0.59 L Kerr # (Auto) (0.1 - 0.8 x10 3/uL) 0.73 Eos # (Auto) (0.0 - 0.2 x10 3/uL) 0.21 H Baso # (Auto) (0.0 - 0.2 x10 3/uL) 0.01 Abs Immat Gran (auto) (0.00 - 0.03 x10 3/uL) 0. 04 H Add Manual Diff NO Immature Gran % (0.0 - 2.0 %) 0.5 Nucleated RBC % (0 - 0 %) 0.0 Nucleated RBCs # (Man) (0.0 - 0.1 x10 3/uL) 0.0 0 Toxicology Random Vancomycin (mcg/mL) 20.2 Diagnosis, Assessment Plan Free Text A P: Multiple ulcers, B feet, B hands , sp fall, w ar terial ulcers, B feet - improving; continue Bactroban BID to all ulcers, leave open to air. Severe PVD, BLE - sp angio LLE CAD- tx per cardiology DM ESRD on HD Rehab pending [ x] Optimize Nutrition and Glycemic Control [ x] Pressure relieving inte rventions (Low Air Mattress, Prevalon boot, Turn q2h ) [ x] Nursing to implement impaired skin integrit y care plan as per skin care protocol Coordinattion of care D/W [ ] Other MD's [x ] Alex peace [ ] Family [ x ] Nursing [ ] Case Management Electronically Signed by Sybil Byers MD on at 2143 RPT #:[id number] END OF REPORT 2022-07-06 14:08:00-00:00 [facility] Hospitalist Progress Note REPORT#:[id number] REPORT STATUS: Signed DATE:07/06/22 TIME: 1408 PATIENT: MESERET MOTTA UNIT #: [id number] ROOM/BED: [place] [id number] : 56 AGE: 67 SEX: F ATTEND: Adonis Gaytan MD ADM AUTHOR: Adonis Gaytan MD * ALL edits or amendments must be made on the el ectronic/computer document * Subjective Chief complaint: c/o back pain this morning. seen at HD. no cp. n o sob. Objective General VS/I O: Vital Signs: Date Time Temp Pulse Resp B/P B/P Pulse O2 O2 F low FiO2 Mean Ox Delivery Rate 07/06 0910 97.8 82 18 157/79 97 Nasal 4 cannula 07/06 0742 98.1 78 17 103/61 75.3 100 Nasal 4 cannula 07/06 0423 98.1 86 18 127/76 93.1 99 Nasal cannula 07/05 2342 98.2 87 17 94/54 67.1 90 Nasal cannula 07/05 2000 Nasal 2 cannula 07/05 1843 97.9 92 18 148/74 98.8 99 Nasal cannula 07/05 1526 98.1 81 17 127/71 89.5 99 Nasal cannula 24 hour I O ending at 0700: 07/06 0700 07/05 1900 Intake Total 200 840 Output Total Balance 200 840 Intake, Oral 200 840 Number Voids 1 PATIENT WEIGHT: Weight (lb): 245 Weight (oz): 9.52 Weight (kg): 111.13 Physical Exam General appearance: alert, awake Head/Eyes: atraumatic, clear cornea, EOMI, kristopher l conjunctiva/sclera, PERRLA ENT: moist mucosal membranes Neck: supple/no meningismus, no JVD Cardiovascular: normal heart sounds, regular rat e rhythm, no murmur Respiratory: aerating well, clear to auscultatio n, symmetric expansion Abdomen: non-tender, normal bowel sounds, soft, no distention Extremities: edema, moves all Neuro/SURGICAL SPECIALIST: alert, oriented X 3, normal speech, n o motor deficits Ulcer: Type/cause: diabetic, arterial Location: foot (bilateral toes) Psychiatry: normal affect Results Radiology data: Laboratory Tests 07/06/22 0540: [Embedded Image Not Available] Current Medications Sig/Enedina Start time Last Medication Dose Route Stop Time Status Admin Vancomycin HCl 750 MG ONCE ONE 07/06 1700 AC Sodium Chloride 250 ML IV 07/06 1759 Hydrocodone Bitart/ 1 TAB Q4H PRN PRN 07/06 1300 AC 07/06 Acetaminophen PO 07/11 1259 1314 Morphine Sulfate 4 MG Q4H PRN PRN 07/06 1300 AC IV 07/11 1259 Calcium Carbonate 1,000 MG Q6H PRN PRN 07/04 16 45 AC 07/04 PO 08/03 1644 1708 Sennosides 8.6 MG BID 07/03 2100 AC 07/05 PO 08/02 2058 0818 Polyethylene Glycol 17 GM DAILY 07/03 1115 AC PO 08/02 1114 1425 Magnesium Hydroxide 30 ML BID PRN PRN 07/02 1345 AC 07/05 PO 08/01 1344 0038 Epoetin Vanesa-epbx 6,000 UNIT YenyhSa@2100 07/01 2 300 AC 07/04 SUBQ 07/31 2259 2131 Mupirocin 1 APPLIC BID 07/01 2100 DC 07/05 NASAL 07/06 0901 202 Miscellaneous 1 EACH ASDIR 06/30 1300 CKD Information IV 07/30 1259 Lactulose 20 GM DAILY PRN PRN 06/30 1045 AC 06/09 8 PO 07/30 1044 0038 Docusate Sodium 100 MG BID 06/30 0900 AC 07/05 PO 07/30 0859 0818 Sodium Chloride 1 SPRAY Q2H PRN PRN 06/29 1015 A C 06/29 NASAL 07/29 1014 1724 Albuterol/Ipratropiu 3 ML RTQ4H PRN PRN 06/28 12 15 AC m NEB 07/28 1214 Ticagrelor 90 MG Q12HR 06/28 1115 AC 07/05 PO 07/28 111 2025 Atropine Sulfate 0.5 MG ASDIR PRN 06/27 1600 AC IV 07/27 1559 Sodium Chloride 500 ML ASDIR PRN 06/27 1600 AC IV 07/27 1559 Sevelamer Carbonate 3,200 MG C MEALS 06/26 0800 AC 07/05 PO 07/26 0759 1751 Calcitriol 0.5 MCG DAILY 06/23 0900 AC 07/05 PO 07/23 0859 0816 Midodrine 5 MG 0900,1300,1700 06/23 09 AC 06/09 9 PO 07/23 0859 0800 Levothyroxine Sodium 150 MCG DAILY 0600 06/23 06 00 AC 07/06 PO 07/23 0559 0416 Buspirone HCl 5 MG BID 06/22 2100 AC 07/05 PO 07/22 Metoprolol Tartrate 12.5 MG Q12HR 06/22 2100 AC 07/05 PO 07/22 Pantoprazole 40 MG 0600,1800 06/22 1800 AC 07/06 PO 07/22 Midodrine 10 MG DIALYSIS-DOSE 06/22 1545 CKD BEFORE PO 07/22 1544 0800 Albumin Human 12.5 GM ASDIR PRN 06/22 1530 AC IV 07/23 1529 1909 Heparin Sodium 3,000 UNIT ASDIR PRN 06/22 1530 A C 07/06 (Porcine) DIALYSIS 07/22 1529 1058 Lidocaine HCl 0.5 ML ASDIR PRN 06/22 1530 CKD I-DERMAL 07/23 1529 Mannitol 12.5 GM ASDIR PRN 06/22 1530 AC IV 07/23 1529 Sodium Chloride 2,000 ML ASDIR PRN 06/22 1530 AC 07/06 IV 07/23 1529 1057 Sodium Chloride 5 ML ASDIR PRN 06/22 1530 AC IV 07/22 1529 Sodium Chloride 10 ML ASDIR PRN 06/22 1530 AC IV 07/22 1529 1100 Sodium Chloride 250 ML ASDIR PRN 06/22 1530 AC IV 07/22 1529 Aspirin 81 MG C BK 06/22 0800 AC 07/05 PO 07/22 0759 0817 Atorvastatin Calcium 40 MG 2100 06/21 2100 AC PO 07/21 205 2025 Insulin Human Lispro 0 AC HS 06/21 2100 AC 07/05 SUBQ 07/21 2059 1223 Dextrose/Water 125 ML ASDIR PRN 06/21 1900 CKD IV 07/21 1859 Dextrose/Water 250 ML ASDIR PRN 06/21 1900 CKD IV 07/21 1859 Glucagon 1 MG ASDIR PRN 06/21 1900 AC IM 07/21 1859 Melatonin 3 MG BEDTIME PRN PRN 06/21 1900 AC PO 07/21 1859 2027 Acetaminophen 650 MG Q4H PRN PRN 06/21 1730 AC PO 07/21 1729 0208 Heparin Sodium 5,000 UNIT ASDIR PRN 06/21 1730 A C 06/22 IV 07/21 1729 1449 Nitroglycerin 0.4 MG Q5M PRN PRN 06/21 1730 AC SL 07/21 1729 Ondansetron HCl 4 MG Q6H PRN PRN 06/21 1730 AC 09/05 IV 07/21 1729 0042 Laboratory Tests: 07/0628 1232 0540 0540 0554 6622 Chemistry Sodium (134 - 147 mEq/L) 140 Potassium (3.4 - 5.0 mEq/L) 4.4 Chloride (100 - 108 mEq/L) 101 Carbon Dioxide (21 - 33 mEq/l) 30 Anion Gap (0 - 20) 14 BUN (7 - 18 mg/dL) 31 H Creatinine (0.6 - 1.3 mg/dL) 4.4 H Glomerular Filtr Rate (80 - 90) 10.5 L Glucose (70 - 110 mg/dL) 167 H POC Glucose (70 - 110 MG/DL) 120 H 175 H 167 H Calcium (8.0 - 10.5 mg/dL) 9.5 Ionized Calcium Anthony (1.09 - 1.30 MMOL/L) 1.21 Phosphorus (2.5 - 4.9 MG/DL) 2.3 L Magnesium (1.80 - 2.40 mg/dL) 2.18 Hematology WBC (4.5 - 11.0 x10 3/uL) 7.7 RBC (3.54 - 5.02 x10 6/uL) 2.92 L Hgb (11.0 - 15.0 g/dL) 8.8 L Hct (33.0 - 45.0 %) 29.4 L MCV (81.0 - 99.0 fL) 100.7 H MCH (27.0 - 33.0 pg) 30.1 MCHC (33.0 - 37.0 g/dL) 29.9 L RDW (11.5 - 14.5 %) 15.1 H Plt Count (150 - 400 x10 3/uL) 160 MPV (7.0 - 9.0 fL) 9.5 H Neut % (Auto) (56.0 - 77.0 %) 79.5 H Lymph % (Auto) (14.0 - 32.0 %) 7.7 L Kerr % (Auto) (4.8 - 9.0 %) 9.5 H Eos % (Auto) (0.3 - 3.7 %) 2.7 Baso % (Auto) (0.0 - 2.0 %) 0.1 Neut # (Auto) (2.0 - 7.6 x10 3/uL) 6.08 Lymph # (Auto) (1.0 - 3.8 x10 3/uL) 0.59 L Kerr # (Auto) (0.1 - 0.8 x10 3/uL) 0.73 Eos # (Auto) (0.0 - 0.2 x10 3/uL) 0.21 H Baso # (Auto) (0.0 - 0.2 x10 3/uL) 0.01 Abs Immat Gran (auto) (0.00 - 0.03 0.04 H x10 3/uL) Add Manual Diff NO Immature Gran % (0.0 - 2.0 %) 0.5 Nucleated RBC % (0 - 0 %) 0.0 Nucleated RBCs # (Man) (0.0 - 0.1 0.00 x10 3/uL) Toxicology Random Vancomycin (mcg/mL) 20.2 07/05 1524 Chemistry POC Glucose (70 - 110 MG/DL) 127 H Diagnosis, Assessment Plan Consultants: cardiology, cardiovascular surgery, nephrology, wound care Free Text DxA P Notes Free text DxA P notes: Assessment and plans: Three-vessel coronary artery disease CV surgery following. Dopplers, alexandro duplex were ordered patient is off the heparin drip on aspirin, Brilinta, atorvastatin, metoprolol -echo from OSH LVEF 50% cardiology seen -S/p PCI to left circumflex 06/27 Patient needs staged PCI to mid and proximal LAD in 1 to 2 weeks as outpatient Constipation -miralex. vaginal bleeding- fibroids 07/01 - bleeding for 2 weeks and had no vaginal bleeding for 15 years...ask director [employer] to see and check pelvic ultrasound. 07/02 - usg shows fibroids and director [employer] wants outpt f /u for endometrial bx. Severe PAD/toe ulcer: Status post MORPHOLOGIST and atherec cheri with CSI followed by MORPHOLOGIST with stable balloon on left anterior and posterior tibial artery, for r ight anterior and posterior tibial artery Will need staged intervention as p er cardiology. 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 Plan for peripheral angiogram in the morning as per c ardiology 06/29 Acute respiratory failure with hypoxemia Patient presented with supplemental nasal cannu la oxygen -Pulmonary edema, pleural effusion on CT chest, no PE Patient needs to be evaluated for home oxygen o nce patient is medically cleared for discharge On 2 L oxygen via nasal cannula 06/29 DuoNeb treatment Pulmonary consulted -Continue to optimize heart failure management, blood pressure control and Outpatient sleep study Leukocytosis: -CT chest result done -Afebrile -Patient has multiple ulcers in hands and feet. Wound cx growing ent fecalis, rocephin switched to unasyn 07/04 -blood culture 06/26 (was not ordered on admissi on) no growth till now 06/30- WBC increasing on unasyn. consult ID. ran ingram vanc? 07/04- bone scan ordered for her toes. results p ending. 07/05 - bone scan negative for osteo End-stage renal disease on hemodialysis Patient is on a Sunday sched jaxon [employer] Rip[employer] Room Supervisor following Functional quadriplegia: Rehab consult as recommended by cardiology. Pat ient lives alone. 06/28 Elevated LFTs Secondary to hepatic congestion Monitor LFTs Type 2 diabetes mellitus on insulin sliding scale Diabetic diet Hypothyroidism Resume Synthroid Anemia of chronic disease -Transfuse for Hb <7 -No bleeding hypotension on midodrine on empiric IV CTX check labs in am SCD for DVT prophylaxis. Disposition: S/p PCI and 1 stent placement in le ft circumflex, plan for peripheral angiogram to right anterior and poste rior tibial artery. On 2 L oxygen via nasal cannula. On Unasyn. Patient ricki es alone. Case management consulted for inpatient rehab. [facility] 06/30- WBC worsening. ID consulted. awaiting tra nsfer to rehab. 07/01- WBC better. ABX changed from unas yn to VANC. pt c/o DUB. 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 07/02- Possible panic attack yesterday...to CCU..transfer back to telemetry. d/w bedside nurse. 07/03 - miralex for constipation. 07/04- Bone scan ordered for the toes. d /w case aide and plan is for SNF at [place]. awaiting insurance approval. 07/05 - awaiting SNF approval from insurance. 07/06 - d/w case management. awaiting insurance approval for SNF Quality: Gen Med Crit Care VTE Prophylaxis VTE prophylaxis initiated: yes Current Medications Current medication review: I attest that the foregoing medication list in t medical record is true, accurate, and complete to the best of my knowled ge. Electronically Signed by Adonis Gaytan MD on 06/09 03/30 at 1409 RPT #:[id number] END OF REPORT 2022-07-06 11:13:00-00:00 [facility] ([facility] Infectious Dis. Progress Note REPORT#:[id number] REPORT STATUS: Signed DATE:07/06/22 TIME: 1113 PATIENT: MESERET MOTTA UNIT #: [id number] ROOM/BED: [place] [id number] : 56 AGE: 67 SEX: F ATTEND: Adonis Gaytan MD ADM AUTHOR: Kasey Mendez MD * ALL edits or amendments must be made on the [facility] document * Subjective HPI: 67 yr old with esrd on hd admitted after multiple falls and left foot vascular ulcers sec to severe PVD. Patient reports: No: cough, diarrhea, fever, headache, nausea. Portions of this section wer e scribed by Mohini Orozco on 07/06/22 at 1113 Objective General VS/I O: Vital Signs Date Temp Pulse Resp B/P B/P Mean Pulse Ox FiO2 07/05-07/06 97.8-98.2 78-92 17-18 94-157/54-79 67.1-98.8 90-100 Last Documented: Result Date Time Pulse Ox 97 07/06 0910 B/P 157/79 07/06 0910 O2 Delivery Nasal cannula 07/06 0910 O2 Flow Rate 4 07/06 0910 Temp 97.8 07/06 0910 Pulse 82 07/06 0910 Resp 18 07/06 0910 B/P Mean 75.3 07/06 0742 FiO2 21 06/28 2342 Vital Signs: Date Time Temp Pulse Resp B/P B/P Pulse O2 O2 F low FiO2 Mean Ox Delivery Rate 07/06 0910 97.8 82 18 157/79 97 Nasal 4 cannula 07/06 0742 98.1 78 17 103/61 75.3 100 Nasal 4 cannula 07/06 0423 98.1 86 18 127/76 93.1 99 Nasal cannula 07/05 2342 98.2 87 17 94/54 67.1 90 Nasal cannula 07/05 2000 Nasal 2 cannula 07/05 1843 97.9 92 18 148/74 98.8 99 Nasal cannula 07/05 1526 98.1 81 17 127/71 89.5 99 Nasal cannula 07/05 1143 98.2 86 17 118/69 85.2 99 Nasal cannula 24 hour I O ending at 0700: 07/06 0700 07/05 1900 Intake Total 200 840 Output Total Balance 200 840 Intake, Oral 200 840 Number Voids 1 PATIENT WEIGHT: Weight (lb): 245 Weight (oz): 9.52 Weight (kg): 111.13 Physical Exam General appearance: alert, awake, oriented Wound/incision: Location: jarrett left more than right foot ulcers, erythema Site condition: dressing clean dry, dressing in tact Head/Eyes: clear cornea, PERRL ENT: moist mucosal membranes Neck: full range of motion, no JVD Cardiovascular: normal heart sounds Respiratory: rhonchi Abdomen: no CVA tenderness, no distention, no gu arding Genitourinary: no flank pain, no urinary cathete r Extremities: abnormal capill dre refill, abnormal temperature, edema, moves all, normal motor function, no clubbing, no contractu re, no cyanosis Skin: erythema, dry Ulcer: Type/cause: diabetic, arterial Location: foot (bilateral toes) Results Findings/Data: Laboratory Tests 07/06 07/06 07/06 07/05 07/05 0540 0540 0528 1842 1524 Chemistry Sodium (134 - 147 mEq/L) 140 Potassium (3.4 - 5.0 mEq/L) 4.4 Chloride (100 - 108 mEq/L) 101 Carbon Dioxide (21 - 33 mEq/l) 30 Anion Gap (0 - 20) 14 BUN (7 - 18 mg/dL) 31 H Creatinine (0.6 - 1.3 mg/dL) 4.4 H Glomerular Filtr Rate (80 - 90) 10.5 L Glucose (70 - 110 mg/dL) 167 H POC Glucose (70 - 110 MG/DL) 175 H 167 H 127 H Calcium (8.0 - 10.5 mg/dL) 9.5 Ionized Calcium Anthony (1.09 - 1.30 MMOL/L) 1.21 Phosphorus (2.5 - 4.9 MG/DL) 2.3 L Magnesium (1.80 - 2.40 mg/dL) 2.18 07/05 1142 Chemistry POC Glucose (70 - 110 MG/DL) 177 H Laboratory Tests 07/06 0540 Hematology WBC (4.5 - 11.0 x10 3/uL) 7.7 RBC (3.54 - 5.02 x10 6/uL) 2.92 L Hgb (11.0 - 15.0 g/dL) 8.8 L Hct (33.0 - 45.0 %) 29.4 L MCV (81.0 - 99.0 fL) 100.7 H MCH (27.0 - 33.0 pg) 30.1 MCHC (33.0 - 37.0 g/dL) 29.9 L RDW (11.5 - 14.5 %) 15.1 H Plt Count (150 - 400 x10 3/uL) 160 MPV (7.0 - 9.0 fL) 9.5 H Neut % (Auto) (56.0 - 77.0 %) 79.5 H Lymph % (Auto) (14.0 - 32.0 %) 7.7 L Kerr % (Auto) (4.8 - 9.0 %) 9.5 H Eos % (Auto) (0.3 - 3.7 %) 2.7 Baso % (Auto) (0.0 - 2.0 %) 0.1 Neut # (Auto) (2.0 - 7.6 x10 3/uL) 6.08 Lymph # (Auto) (1.0 - 3.8 x10 3/uL) 0.59 L Kerr # (Auto) (0.1 - 0.8 x10 3/uL) 0.73 Eos # (Auto) (0.0 - 0.2 x10 3/uL) 0.21 H Baso # (Auto) (0.0 - 0.2 x10 3/uL) 0.01 Abs Immat Gran (auto) (0.00 - 0.03 x10 3/uL) 0. 04 H Add Manual Diff NO Immature Gran % (0.0 - 2.0 %) 0.5 Nucleated RBC % (0 - 0 %) 0.0 Nucleated RBCs # (Man) (0.0 - 0.1 x10 3/uL) 0.0 0 Laboratory Tests 07/06 0540 Toxicology Random Vancomycin (mcg/mL) 20.2 Medication(s) Ordered: Ahfs Category Unknown Sig/Enedina Start time Last Medication Dose Route Stop Time Status Admin Melatonin 3 MG BEDTIME PRN PRN 06/21 1900 AC PO 07/21 185 202 Anti-Infective Agents Sig/Enedina Start time Last Medication Dose Route Stop Time Status Admin Vancomycin HCl 750 MG ONCE ONE 07/06 2000 AC Sodium Chloride 250 ML IV 07/06 2059 Miscellaneous 1 EACH ASDIR 06/30 1300 CKD Information IV 07/30 1259 Autonomic Drugs Sig/Enedina Start time Last Medication Dose Route Stop Time Status Admin Albuterol/Ipratropium 3 ML RTQ4H PRN PRN 06/28 1215 AC NEB 07/28 1214 Atropine Sulfate 0.5 MG ASDIR PRN 06/27 1600 AC IV 07/27 1559 Midodrine 5 MG 0900,1300,1700 06/23 0900 AC PO 07/23 0859 0800 Midodrine 10 MG DIALYSIS-DOSE BEFORE 06/22 1545 CKD 07/06 PO 07/22 1544 0800 Blood Derivatives Sig/Enedina Start time Last Medication Dose Route Stop Time Status Admin Albumin Human 12.5 GM ASDIR PRN 06/22 1530 AC 06/27 IV 07/23 1529 1909 Blood Formation,Coagulation Sig/Enedina Start time Last Medication Dose Route Stop Time Status Admin Epoetin Vanesa-epbx 6,000 UNIT TuThSa@2100 07/01 2300 AC 07/04 SUBQ 07/31 2259 2131 Ticagrelor 90 MG Q12HR 06/28 1115 AC 07/05 PO 07/28 1114 2025 Heparin Sodium 3,000 UNIT ASDIR PRN 06/22 1530 AC 07/06 (Porcine) DIALYSIS 07/22 1529 1058 Heparin Sodium 5,000 UNIT ASDIR PRN 06/21 1730 AC 06/22 IV 07/21 1729 1449 Cardiovascular Drugs Sig/Enedina Start time Last Medication Dose Route Stop Time Status Admin Metoprolol Tartrate 12.5 MG Q12HR 06/22 2100 AC 07/05 PO 07/22 Lidocaine HCl 0.5 ML ASDIR PRN 06/22 1530 CKD I-DERMAL 07/23 1529 Atorvastatin Calcium 40 MG 2100 06/21 2100 AC 1 09/05 PO 07/21 Nitroglycerin 0.4 MG Q5M PRN PRN 06/21 1730 AC SL 07/21 1729 Central Nervous System Agents Sig/Enedina Start time Last Medication Dose Route Stop Time Status Admin Buspirone HCl 5 MG BID 06/22 2100 AC 07/05 PO 07/22 2058 2025 Aspirin 81 MG C BK 06/22 0800 AC 07/05 PO 07/22 0759 0817 Acetaminophen 650 MG Q4H PRN PRN 06/21 1730 AC 07/06 PO 07/21 1729 0208 Electrolytic, Caloric, And Bailey Sig/Enedina Start time Last Medication Dose Route Stop Time Status Admin Calcium Carbonate 1,000 MG Q6H PRN PRN 07/04 16 45 AC 07/04 PO 08/03 1644 1708 Lactulose 20 GM DAILY PRN PRN 06/30 1045 AC PO 07/30 1044 0038 Sodium Chloride 500 ML ASDIR PRN 06/27 1600 AC IV 07/27 1559 Sevelamer Carbonate 3,200 MG C MEALS 06/26 080 0 AC 07/05 PO 07/26 0759 1751 Mannitol 12.5 GM ASDIR PRN 06/22 1530 AC IV 07/23 1529 Sodium Chloride 2,000 ML ASDIR PRN 06/22 1530 A C 07/06 IV 07/23 1529 1057 Sodium Chloride 5 ML ASDIR PRN 06/22 1530 AC IV 07/22 1529 Sodium Chloride 10 ML ASDIR PRN 06/22 1530 AC 1 IV 07/22 1529 1100 Sodium Chloride 250 ML ASDIR PRN 06/22 1530 AC IV 07/22 1529 Dextrose/Water 125 ML ASDIR PRN 06/21 1900 CKD IV 07/21 1859 Dextrose/Water 250 ML ASDIR PRN 06/21 1900 CKD IV 07/21 1859 Eye, Ear, Nose And Throat (Een Sig/Enedina Start time Last Medication Dose Route Stop Time Status Admin Sodium Chloride 1 SPRAY Q2H PRN PRN 06/29 1015 AC 06/29 NASAL 07/29 1014 1724 Gastrointestinal Drugs Sig/Enedina Start time Last Medication Dose Route Stop Time Status Admin Sennosides 8.6 MG BID 07/03 2100 AC 07/05 PO 08/02 2059 0818 Polyethylene Glycol 17 GM DAILY 07/03 1115 AC 1 09/04 PO 08/02 1114 1425 Magnesium Hydroxide 30 ML BID PRN PRN 07/02 13 45 AC 07/05 PO 08/01 1344 0038 Docusate Sodium 100 MG BID 06/30 0900 AC 07/05 PO 07/30 0859 0818 Pantoprazole 40 MG 0600,1800 06/22 1800 AC 06/09 9 PO 07/22 1759 0416 Ondansetron HCl 4 MG Q6H PRN PRN 06/21 1730 AC 07/05 IV 07/21 1729 0042 Hormones And Synthetic Substit Sig/Enedina Start time Last Medication Dose Route Stop Time Status Admin Levothyroxine Sodium 150 MCG DAILY 06/23 0 600 AC 07/06 PO 07/23 0559 0416 Insulin Human Lispro 0 AC HS 06/21 2100 AC 06/09 8 SUBQ 07/21 2058 122 Glucagon 1 MG ASDIR PRN 06/21 1900 AC IM 07/21 185 Skin And Mucous Membrane Agent Sig/Enedina Start time Last Medication Dose Route Stop Time Status Admin Mupirocin 1 APPLIC BID 07/01 2100 DC 07/05 NASAL 07/06 092023 Vitamins Sig/Enedina Start time Last Medication Dose Route Stop Time Status Admin Calcitriol 0.5 MCG DAILY 06/23 09 AC 07/05 PO 07/23 0859 0816 Recent Impressions: NUCLEAR MEDICINE - NM BONE 3 PHASE 07/04 07 Report Impression - Status: SIGNED Entered: 07/04/2022 185 IMPRESSION: 1. No evidence of cellulitis or osteomyelitis. 2. Active osseous abnormality in the inferior an d posterior calcaneus bilaterally likely representing degene rative change as noted on the left foot plain radiographs. Impression By: [email or web address] Tiffany Beavers Portions of this section wer e scribed by Mohini Orozco on 07/06/22 at 1113 Diagnosis, Assessment Plan Free Text A P: 1. Severe PVd: vascular ulce rs of the left foot : infection with e. fecalis: s/p vascular intrvention. on vanc post hd day 7 out of 7. finishing today 2. Leucocytosis: multifactor ial sec to foot ulcers infection, leukemoid reaction to fluid overload. 3. ESRD: on hd. 4. Dmii: with DFU: on insulin 5. diastolic heart failure 6. hypertension Consultants: cardiology, cardiovascular surgery, nephrology, wound care Portions of this section wer e scribed by Mohini Orozco on 07/06/22 at 1113 at 0999 RPT #:[id number] END OF REPORT 2022-07-06 10:45:00-00:00 [facility] ([facility]) Pulmonology Progress Note REPORT#:[id number] REPORT STATUS: Signed DATE:07/06/22 TIME: 1045 PATIENT: MESERET MOTTA UNIT #: [id number] ROOM/BED: [place] [id number] : 56 AGE: 67 SEX: F ATTEND: Adonis Gaytan MD ADM AUTHOR: Ana Bobo * ALL edits or amendments must be made on the [employer]/computer document * Subjective Comments: On NC, comfortable, no new complaints ROS All systems rev neg: except as marked Objective General VS/I O: Last Documented: Result Date Time Pulse Ox 97 07/06 0910 B/P 157/79 07/06 0910 O2 Delivery Nasal cannula 07/06 0910 O2 Flow Rate 4 07/06 0910 Temp 36.6 07/06 0910 Pulse 82 07/06 0910 Resp 18 07/06 0910 B/P Mean 75.3 07/06 0742 FiO2 21 06/28 2342 24 hour I O ending at 0700: 07/06 0700 07/05 1900 Intake Total 200 840 Output Total Balance 200 840 Intake, Oral 200 840 Number Voids 1 PATIENT WEIGHT: Weight (lb): 245 Weight (oz): 9.52 Weight (kg): 111.13 Medications: Active Meds + DC'd Last 24 Hrs Vancomycin HCl (VANCOMYCIN HCL) 750 MG ONCE ONE IV Sodium Chloride (SODIUM CHLORIDE 0.9%) 250 ML Calcium Carbonate (TUMS CHEW TAB) 1,000 MG Q6H PRN PRN PO Sennosides (Senna Lax 8.6 MG TABLET) 8.6 MG BID PO Polyethylene Glycol (MIRALAX) 17 GM DAILY PO Magnesium Hydroxide (MILK OF MAGNESIA) 30 ML BID PRN PRN PO Epoetin Vanesa-epbx (RETACRIT) 6,000 UNIT TuThSa@2 100 SUBQ Mupirocin (BACTROBAN 2% 22 GM OINTMENT) 1 APPLIC BID NASAL (DC) Miscellaneous Information (VANCOMYCIN PHARMACY T O DOSE) 1 EACH ASDIR IV (CKD) Lactulose (LACTULOSE) 20 GM DAILY PRN PRN PO Docusate Sodium (COLACE) 100 MG BID PO Sodium Chloride (OCEAN) 1 SPRAY Q2H PRN PRN NASA L Albuterol/Ipratropium (DUONEB) 3 ML RTQ4H PRN DC N NEB Ticagrelor (BRILINTA) 90 MG Q12HR PO Atropine Sulfate (ATROPINE SULFATE 0.1MG/ML SYR) 0.5 MG ASDIR PRN IV Sodium Chloride (SODIUM CHLORIDE 0.9%) 500 ML DIR PRN IV Sevelamer Carbonate (RENVELA) 3,200 MG C MEALS PO Calcitriol (RocaltroL) 0.5 MCG DAILY PO Midodrine (PROAMATINE) 5 MG 0900,1300,1700 PO Levothyroxine Sodium (LEVOTHYROXINE SODIUM) 150 MCG DAILY 0600 PO Buspirone HCl (BUSPAR) 5 MG BID PO Metoprolol Tartrate (LOPRESSOR) 12.5 MG Q12HR PO Pantoprazole (PROTONIX) 40 MG 0600,1800 PO Midodrine (PROAMATINE) 10 MG DIALYSIS-DOSE BEFOR E PO (CKD) Albumin Human (ALBUMINAR-25%) 12.5 GM ASDIR PRN IV Heparin Sodium (Porcine) (HEPARIN SODIUM) 3,000 UNIT ASDIR PRN DIALYSIS Lidocaine HCl (LIDOCAINE HCL/PF) 0.5 ML ASDIR DC N I-DERMAL (CKD) Mannitol (MANNITOL 25% 12.5GM/50ML) 12.5 GM ASDI R PRN IV Sodium Chloride (SODIUM CHLORIDE 0.9%) 2,000 ML ASDIR PRN IV Sodium Chloride (SODIUM CHLORIDE) 5 ML ASDIR PRN IV Sodium Chloride (SODIUM CHLORIDE) 10 ML ASDIR DC N IV Sodium Chloride (SODIUM CHLORIDE 0.9%) 250 ML DIR PRN IV Aspirin (ASPIRIN) 81 MG C BK PO Atorvastatin Calcium (LIPITOR) 40 MG 2100 PO Insulin Human Lispro (HUMALOG) 0 AC HS SUBQ Dextrose/Water (DEXTROSE 10% IN WATER) 125 ML DIR PRN IV (CKD) Dextrose/Water (DEXTROSE 10% IN WATER) 250 ML DIR PRN IV (CKD) Glucagon (GLUCAGON) 1 MG ASDIR PRN IM Melatonin (Melatonin) 3 MG BEDTIME PRN PRN PO Acetaminophen (TYLENOL) 650 MG Q4H PRN PRN PO Heparin Sodium (HEPARIN 5000 UNITS/ML) 5,000 UNI T ASDIR PRN IV Nitroglycerin (NITROSTAT) 0.4 MG Q5M PRN PRN SL Ondansetron HCl (ZOFRAN) 4 MG Q6H PRN PRN IV Physical Exam General appearance: alert, awake, oriented, no a cute distress Head/eyes: atraumatic, normocephalic, PERRL Neck: supple/no meningismus, no bruit/NL carotid s, no lymphadenopathy Cardiovascular: normal S1/S2, no rub, no gallop Respiratory/chest: decreased breath sounds, symmetric expansion, no distress, no tenderness Abdomen: soft, normal bowel sounds, no distentio n, no guarding Extremities: edema, no clubbing Neuro/SURGICAL SPECIALIST: alert, oriented X 3, no motor deficit s Skin: dry, normal color Ulcer: Type/cause: diabetic, arterial Location: foot (bilateral toes) Psychiatry: normal affect, no hallucinations Results Findings/Data: Laboratory Tests 07/06/22 0540: [Embedded Image Not Available] Laboratory Tests 07/06 07/06 07/06 07/05 07/05 0540 0540 0528 1842 1524 Chemistry Sodium (134 - 147 mEq/L) 140 Potassium (3.4 - 5.0 mEq/L) 4.4 Chloride (100 - 108 mEq/L) 101 Carbon Dioxide (21 - 33 mEq/l) 30 Anion Gap (0 - 20) 14 BUN (7 - 18 mg/dL) 31 H Creatinine (0.6 - 1.3 mg/dL) 4.4 H Glomerular Filtr Rate (80 - 90) 10.5 L Glucose (70 - 110 mg/dL) 167 H POC Glucose (70 - 110 MG/DL) 175 H 167 H 127 H Calcium (8.0 - 10.5 mg/dL) 9.5 Ionized Calcium Anthony (1.09 - 1.30 MMOL/L) 1.21 Phosphorus (2.5 - 4.9 MG/DL) 2.3 L Magnesium (1.80 - 2.40 mg/dL) 2.18 07/05 1142 Chemistry POC Glucose (70 - 110 MG/DL) 177 H Laboratory Tests 07/06 0540 Hematology WBC (4.5 - 11.0 x10 3/uL) 7.7 RBC (3.54 - 5.02 x10 6/uL) 2.92 L Hgb (11.0 - 15.0 g/dL) 8.8 L Hct (33.0 - 45.0 %) 29.4 L MCV (81.0 - 99.0 fL) 100.7 H MCH (27.0 - 33.0 pg) 30.1 MCHC (33.0 - 37.0 g/dL) 29.9 L RDW (11.5 - 14.5 %) 15.1 H Plt Count (150 - 400 x10 3/uL) 160 MPV (7.0 - 9.0 fL) 9.5 H Neut % (Auto) (56.0 - 77.0 %) 79.5 H Lymph % (Auto) (14.0 - 32.0 %) 7.7 L Kerr % (Auto) (4.8 - 9.0 %) 9.5 H Eos % (Auto) (0.3 - 3.7 %) 2.7 Baso % (Auto) (0.0 - 2.0 %) 0.1 Neut # (Auto) (2.0 - 7.6 x10 3/uL) 6.08 Lymph # (Auto) (1.0 - 3.8 x10 3/uL) 0.59 L Kerr # (Auto) (0.1 - 0.8 x10 3/uL) 0.73 Eos # (Auto) (0.0 - 0.2 x10 3/uL) 0.21 H Baso # (Auto) (0.0 - 0.2 x10 3/uL) 0.01 Abs Immat Gran (auto) (0.00 - 0.03 x10 3/uL) 0. 04 H Add Manual Diff NO Immature Gran % (0.0 - 2.0 %) 0.5 Nucleated RBC % (0 - 0 %) 0.0 Nucleated RBCs # (Man) (0.0 - 0.1 x10 3/uL) 0.0 0 Laboratory Tests 07/06 0540 Toxicology Random Vancomycin (mcg/mL) 20.2 Diagnosis, Assessment Plan Free Text A P: 1- Acute hypoxemic respiratory failure 2- Acute pulm edema 3- Cardiology disease status post PCI 4- Chronic diastolic heart failure HFpEF 5- End-stage renal disease on hemodialysis 6- Hypertension/DM2 7- Peripheral vascular disease/ischemic ulcer 8- Obesity ? Underlying JAMILAH - Nasal cannula O2, titrate to keep sats above 9 4%. On 4L - Hemodialysis with fluid removal per nephrology service - DuoNeb every 4 hours as needed - Continue to optimize heart failure management, blood pressure control - Wound care - Outpatient sleep study - DVT prophylaxis - Transferred briefly to ICU after suspected vas ovagal event now resolved - D/C Planning at 1432 RPT #:[id number] END OF REPORT 2022-07-06 08:33:00-00:00 [facility] ([facility]) Pharmacy Prog.Note-Vancomycin REPORT#:[id number] REPORT STATUS: Signed DATE:07/06/22 TIME: 832 PATIENT: MESERET MOTTA UNIT #: [id number] ROOM/BED: [place] [id number] : 56 AGE: 67 SEX: F ATTEND: Adonis Gaytan MD ADM AUTHOR: Nikolai Garsia Ph * ALL edits or amendments must be made on the [employer]/computer document * Vancomycin Vancomycin Medication Therapy Goal: Pre-HD vanco goal 15-20mcg/mL Indication for treatment: SSTI Current therapy: Post-HD vancomycin 1000 mg IV once VS and I/O: Vital Signs Date Temp Pulse Resp B/P B/P Mean Pulse Ox FiO 2 07/03-07/06 97.3-98.6 74-92 15-21 94-162/54-81 67.1-108.2 90-100 72 hours ending at 0700 07/06 0700 07/05 1900 07/05 0707/04 1900 07/03 07 1900 Intake 200 840 200 310.00 Total Output 3000 0 Total Balance 200 840 200 -3000 310.00 Intake, IV 10.00 Intake, 200 840 200 300 Oral Number 0 Bowel Movements Number 1 2 Voids Output, 3000 Hemodialys is Output, 0 Stool 72 Hour I O Total 07/06 0700 07/05 0700 07/04 0700 Intake Total 1040 200 310.00 Output Total 3000 0 Balance 1040 -2800 310.00 Labs: Laboratory Tests: 07/06 0540 Toxicology Random Vancomycin (mcg/mL) 20.2 Laboratory Test : 07/06 0540 Hematology WBC (4.5 - 11.0 x10 3/uL) 7.7 Treatment plan: consult, cont current regimen/do se Regimen: Ms. Meseret Motta is a 67-year-old female with history of end-stage renal disease on hemodialysis, hypertension, diabetes, hypothyroidism, who was transferred from [facility] on 08/23 for evaluation for CABG. Patient presented here 1 week ago with complaint s of shortness of breath and lower extremity edema. Pharmacy has been consulted to dose vancomycin for SSTI Consulting Provider: Kasey Mendez MD Indication: SSTI Pre-HD Vancomycin Level Goal: 15-20 mcg/ml 07/06 Assessment and Plan: * WBC 7.7, Afebrile, Tmax 98.1F documented over 24 hours * Renal function: ESRD on HD on , Last HD session on 07/04, UOP 2 voids documented Dosing/monitoring: * Day 7 of 7. * Vancomycin loading dose 1750 mg ( 16 mg/kg) x1 given on 06/30. * 07/01 Vanc pre HD level 22.4 mcg/ml an d pt received vanc 1000 mg IV x 1 post HD * 07/04 Vanc pre HD level 19.9 mcg/ml an d pt received vanc 1000 mg IV x 1 post HD * 07/06 Vanc pre HD level 20.2 mcg/ml. Goal PreH D 15-20 mcg/ml. * Will re-dose with vanc 750 mg x 1 today. * No plan to repeat levels as vanc end date toda y per ID note. at 0841 RPT #:[id number] END OF REPORT 2022-07-06 08:29:00-00:00 [facility] REPORT#:[id number] REPORT STATUS: Signed DATE:07/06/22 TIME: 828 PATIENT: MESERET MOTTA UNIT #: [id number] ROOM/BED: [address] : 56 AGE: 67 SEX: F ATTEND: Adonis Gyatan MD ADM AUTHOR: Sabrina Tirado INDUSTRIAL RELATIONS DIRECTOR * ALL edits or amendments must be made on the [employer] document * Subjective Chief complaint: stable, waiting on rehab Objective General VS/I O: Laboratory Tests 07/06/22 0540: [Embedded Image Not Available] Current Medications Sig/Enedina Start time Last Medication Dose Route Stop Time Status Admin Vancomycin HCl 750 MG ONCE ONE 07/06 2000 AC Sodium Chloride 250 ML IV 07/06 2059 Calcium Carbonate 1,000 MG Q6H PRN PRN 07/04 164 5 AC 07/04 PO 08/03 1644 1708 Sennosides 8.6 MG BID 07/03 2100 AC 07/05 PO 08/02 205 0818 Polyethylene Glycol 17 GM DAILY 07/03 1115 AC PO 08/02 1114 1425 Magnesium Hydroxide 30 ML BID PRN PRN 07/02 1345 AC 07/05 PO 08/01 1344 0038 Epoetin Vanesa-epbx 6,000 UNIT TuThSa@2100 07/01 2 300 AC 07/04 SUBQ 07/31 2259 2131 Mupirocin 1 APPLIC BID 07/01 2100 DC 07/05 NASAL 07/06 0901 2024 Miscellaneous 1 EACH ASDIR 06/30 1300 CKD Information IV 07/30 1259 Lactulose 20 GM DAILY PRN PRN 06/30 1045 AC 06/09 8 PO 07/30 1044 0038 Docusate Sodium 100 MG BID 06/30 0900 AC 07/05 PO 07/30 0859 0818 Sodium Chloride 1 SPRAY Q2H PRN PRN 06/29 1015 A C 06/29 NASAL 07/29 1014 1724 Albuterol/Ipratropiu 3 ML RTQ4H PRN PRN 06/28 12 15 AC m NEB 07/28 1214 Ticagrelor 90 MG Q12HR 06/28 1115 AC 07/05 PO 01/20 1114 2025 Atropine Sulfate 0.5 MG ASDIR PRN 06/27 1600 AC IV 07/27 1559 Sodium Chloride 500 ML ASDIR PRN 06/27 1600 AC IV 07/27 1559 Sevelamer Carbonate 3,200 MG C MEALS 06/26 0800 AC 07/05 PO 07/26 0759 1751 Calcitriol 0.5 MCG DAILY 06/23 0900 AC 07/05 PO 07/23 0859 0816 Midodrine 5 MG 0900,1300,1700 06/23 09 AC 06/09 9 PO 07/23 0859 0800 Levothyroxine Sodium 150 MCG DAILY 0600 06/23 06 00 AC 07/06 PO 07/23 0559 0416 Buspirone HCl 5 MG BID 06/22 2100 AC 07/05 PO 07/22 Metoprolol Tartrate 12.5 MG Q12HR 06/22 2100 AC 07/05 PO 07/22 Pantoprazole 40 MG 0600,1800 06/22 1800 AC 07/06 PO 07/22 175 041 Midodrine 10 MG DIALYSIS-DOSE 06/22 1545 CKD BEFORE PO 07/22 1544 0800 Albumin Human 12.5 GM ASDIR PRN 06/22 1530 AC IV 07/23 1529 1909 Heparin Sodium 3,000 UNIT ASDIR PRN 06/22 1530 A C 07/04 (Porcine) DIALYSIS 07/22 1529 0805 Lidocaine HCl 0.5 ML ASDIR PRN 06/22 1530 CKD I-DERMAL 07/23 1529 Mannitol 12.5 GM ASDIR PRN 06/22 1530 AC IV 07/23 1529 Sodium Chloride 2,000 ML ASDIR PRN 06/22 1530 AC 07/04 IV 07/23 1529 0804 Sodium Chloride 5 ML ASDIR PRN 06/22 1530 AC IV 07/22 1529 Sodium Chloride 10 ML ASDIR PRN 06/22 1530 AC IV 07/22 1529 0806 Sodium Chloride 250 ML ASDIR PRN 06/22 1530 AC IV 07/22 1529 Aspirin 81 MG C BK 06/22 0800 AC 07/05 PO 07/22 0759 0817 Atorvastatin Calcium 40 MG 2100 06/21 2100 AC PO 07/21 Insulin Human Lispro 0 AC HS 06/21 2100 AC 07/05 SUBQ 07/21 205 1223 Dextrose/Water 125 ML ASDIR PRN 06/21 190 CKD IV 07/21 185 Dextrose/Water 250 ML ASDIR PRN 06/21 190 CKD IV 07/21 185 Glucagon 1 MG ASDIR PRN 06/21 1900 AC IM 07/21 185 Melatonin 3 MG BEDTIME PRN PRN 06/21 190 AC PO 07/21 185 202 Acetaminophen 650 MG Q4H PRN PRN 06/21 173 AC 1 PO 07/21 172 0208 Heparin Sodium 5,000 UNIT ASDIR PRN 06/21 1730 A C 06/22 IV 07/21 1729 1449 Nitroglycerin 0.4 MG Q5M PRN PRN 06/21 173 AC SL 07/21 172 Ondansetron HCl 4 MG Q6H PRN PRN 06/21 1730 AC 09/05 IV 07/21 1729 0042 24 hour I O ending at 0700: 07/06 0700 07/05 1900 Intake Total 200 840 Output Total Balance 200 840 Intake, Oral 200 840 Number Voids 1 Vital Signs: Date Time Temp Pulse Resp B/P B/P Pulse O2 O2 F low FiO2 Mean Ox Delivery Rate 07/06 0742 36.7 78 17 103/61 75.3 100 Nasal 4 cannula 07/06 0423 36.7 86 18 127/76 93.1 99 Nasal cannula 07/05 2342 36.8 87 17 94/54 67.1 90 Nasal cannula 07/05 2000 Nasal 2 cannula 07/05 1843 36.6 92 18 148/74 98.8 99 Nasal cannula 07/05 1526 36.7 81 17 127/71 89.5 99 Nasal cannula 07/05 1143 36.8 86 17 118/69 85.2 99 Nasal cannula PATIENT WEIGHT: Weight (lb): 245 Weight (oz): 9.52 Weight (kg): 111.13 Physical Exam General appearance: alert, awake, oriented, no a cute distress Head/Eyes: atraumatic, PERRL Neck: non-tender, no JVD Cardiovascular: CV assessment: regular rate and rhythm Respiratory: decreased breath sounds, on oxygen, no distress Abdomen: non-tender, obese Genitourinary: no flank pain, no urinary cathete r Lower extremity: LE assessment: normal capillary refill, normal temperature, no edema Musculoskeletal: normal inspection Neuro/SURGICAL SPECIALIST: alert, oriented X 3, normal speech Skin: scabs lower extremities Ulcer: Type/cause: diabetic, arterial Location: foot (bilateral toes) Psychiatry: normal affect, normal mood Diagnosis, Assessment Plan Consultants: cardiology, cardiovascular surgery, nephrology, wound care Free Text DxA P Notes Free Text DxA P Notes: 67 YO female with PMHx of HTN, DM, CHF, ESRD on HD who initially presented at [facility] with SOB and fatigue. Sh e was treated for NSTEMI and acute CHF exacerbation. 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 She is transferred her for CABG evaluation but deemed too high risk for CABG with STS risk score of 17%. 1. NSTEMI/Multivessel CAD 06/27/22: s/p PCI to LCx wit h 2.25 x 20 mm and post dilated with 2.5 NC balloon continue ASA, Brilinta, BB, and statin need staged PCI to mid and proximal LAD (once re hab is completed) stable 2. Acute on chronic Diastolic CHF volume management per nephrology echo from OSH LVEF 50% 3. ESRD on HD per nephrology 4. Diabetes mellitus per admitting team 5. Hypertension -> orthostatic hypotension on midodrine continue low-dose beta-susan for CAD 6. Toe ulcers/severe PAD 06/26/21: s/p peripheral angiogram and MORPHOLOGIST to th e anterior tibial artery ORE ROASTER of right anterior/posterior tibial artery, n eed staged intervention on a later date 7. Debility PT/OT- SNF pending Ok to DC to rehab from cardiology standpoint. Electronically Signed by Sabrina Tirado NP on at 1027 Electronically Signed by Herson Tang MD on at 1019 RPT #:[id number] END OF REPORT 2022-07-06 07:06:00-00:00 [facility] ([facility] Nephrology Progress Note REPORT#:[id number] REPORT STATUS: Signed DATE:07/06/22 TIME: 07 PATIENT: MESERET MOTTA UNIT #: [id number] ROOM/BED: [address] : 56 AGE: 67 SEX: F ATTEND: Adonis Gaytan MD ADM AUTHOR: Jennifer Shelton MD * ALL edits or amendments must be made on the el ectronic/computer document * Subjective Chief complaint: Transferred for CABG HPI: Patient seen and evaluated, discussed with care team, 67-year-old female with history of end-stage renal d isease on chronic hemodialysis Sunday, and Sunday, diabetes mellitus, peripheral arterial disease and hypertension who was transferred to [facility] for CABG. Terrence quevedo initially presented to [facility] in [place] compl aining of shortness of breath. Underwent left heart cath which showed diffuse di sease and patient was transferred for evaluation for CABG. renal consult was requ ested for management of her end-stage renal disease/ hemodialysis. Patient reports: Yes: complaints. Comments: Patient seen and evaluated, HPI no change from i nitial, feels okay. Review of Systems Constitutional: Reports: fatigue. Denies: chills, fever. Skin: Denies: rash. Allergy/Immun: Denies: hives, itching. Eyes: Denies: redness, discharge. ENT: Denies: ear drainage, ear ringing. Respiratory: Denies: hemoptysis, SOB. Cardiovascular: Denies: chest pain. Objective General VS/I O: Vital Signs: Date Time Temp Pulse Resp B/P B/P Pulse O2 O2 F low FiO2 Mean Ox Delivery Rate 07/06 0423 36.7 86 18 127/76 93.1 99 Nasal cannula 07/05 2342 36.8 87 17 94/54 67.1 90 Nasal cannula 07/05 2000 Nasal 2 cannula 07/05 1843 36.6 92 18 148/74 98.8 99 Nasal cannula 07/05 1526 36.7 81 17 127/71 89.5 99 Nasal cannula 07/05 1143 36.8 86 17 118/69 85.2 99 Nasal cannula 07/05 0816 Nasal 2 cannula 07/05 0714 36.4 84 15 128/75 92.7 98 Nasal cannula 24 hour I O ending at 0700: 07/06 0700 07/05 1900 Intake Total 200 840 Output Total Balance 200 840 Intake, Oral 200 840 Number Voids 1 PATIENT WEIGHT: Weight (lb): 245 Weight (oz): 9.52 Weight (kg): 111.13 Medications Active Meds + DC'd Last 24 Hrs Calcium Carbonate (TUMS CHEW TAB) 1,000 MG Q6H P RN PRN PO Sennosides (Senna Lax 8.6 MG TABLET) 8.6 MG BID PO Polyethylene Glycol (MIRALAX) 17 GM DAILY PO Magnesium Hydroxide (MILK OF MAGNESIA) 30 ML BID PRN PRN PO Epoetin Vanesa-epbx (RETACRIT) 6,000 UNIT TuThSa@2 100 SUBQ Mupirocin (BACTROBAN 2% 22 GM OINTMENT) 1 APPLIC BID NASAL Miscellaneous Information (VANCOMYCIN PHARMACY T O DOSE) 1 EACH ASDIR IV (CKD) Lactulose (LACTULOSE) 20 GM DAILY PRN PRN PO Docusate Sodium (COLACE) 100 MG BID PO Sodium Chloride (OCEAN) 1 SPRAY Q2H PRN PRN NASA L Albuterol/Ipratropium (DUONEB) 3 ML RTQ4H PRN DC N NEB Ticagrelor (BRILINTA) 90 MG Q12HR PO Atropine Sulfate (ATROPINE SULFATE 0.1MG/ML SYR) 0.5 MG ASDIR PRN IV Sodium Chloride (SODIUM CHLORIDE 0.9%) 500 ML DIR PRN IV Sevelamer Carbonate (RENVELA) 3,200 MG C MEALS P O Calcitriol (RocaltroL) 0.5 MCG DAILY PO Midodrine (PROAMATINE) 5 MG 0900,1300,1700 PO Levothyroxine Sodium (LEVOTHYROXINE SODIUM) 150 MCG DAILY 0600 PO Buspirone HCl (BUSPAR) 5 MG BID PO Metoprolol Tartrate (LOPRESSOR) 12.5 MG Q12HR PO Pantoprazole (PROTONIX) 40 MG 0600,1800 PO Midodrine (PROAMATINE) 10 MG DIALYSIS-DOSE BEFOR E PO (CKD) Albumin Human (ALBUMINAR-25%) 12.5 GM ASDIR PRN IV Heparin Sodium (Porcine) (HEPARIN SODIUM) 3,000 UNIT ASDIR PRN DIALYSIS Lidocaine HCl (LIDOCAINE HCL/PF) 0.5 ML ASDIR DC N I-DERMAL (CKD) Mannitol (MANNITOL 25% 12.5GM/50ML) 12.5 GM ASDI R PRN IV Sodium Chloride (SODIUM CHLORIDE 0.9%) 2,000 ML ASDIR PRN IV Sodium Chloride (SODIUM CHLORIDE) 5 ML ASDIR PRN IV Sodium Chloride (SODIUM CHLORIDE) 10 ML ASDIR DC N IV Sodium Chloride (SODIUM CHLORIDE 0.9%) 250 ML DIR PRN IV Aspirin (ASPIRIN) 81 MG C BK PO Atorvastatin Calcium (LIPITOR) 40 MG 2100 PO Insulin Human Lispro (HUMALOG) 0 AC HS SUBQ Dextrose/Water (DEXTROSE 10% IN WATER) 125 ML A SDIR PRN IV (CKD) Dextrose/Water (DEXTROSE 10% IN WATER) 250 ML DIR PRN IV (CKD) Glucagon (GLUCAGON) 1 MG ASDIR PRN IM Melatonin (Melatonin) 3 MG BEDTIME PRN PRN PO Acetaminophen (TYLENOL) 650 MG Q4H PRN PRN PO Heparin Sodium (HEPARIN 5000 UNITS/ML) 5,000 UNI T ASDIR PRN IV Nitroglycerin (NITROSTAT) 0.4 MG Q5M PRN PRN SL Ondansetron HCl (ZOFRAN) 4 MG Q6H PRN PRN IV Physical Exam General appearance: alert, no acute distress Head/eyes: atraumatic, normocephalic ENT: normal nose Neck: non-tender, supple/no meningismus Cardiovascular: normal heart sounds, no rub Respiratory: aerating well, symmetric expansion Abdomen: non-tender, soft Genitourinary: no flank pain Extremities: pitting edema, non-tender Musculoskeletal: no CVA tenderness, no tendernes s Neuro/SURGICAL SPECIALIST: alert, normal speech Skin: dry, intact Ulcer: Type/cause: diabetic, arterial Location: foot (bilateral toes) Results Findings/Data: Laboratory Tests 07/06 07/05 07/05 07/05 07/05 0528 1842 1524 1142 0524 Chemistry POC Glucose (70 - 110 MG/DL) 175 H 167 H 127 H 177 H 153 H 07/04 07/04 07/04 07/04 07/04 1939 1634 1204 1010 0545 Chemistry POC Glucose (70 - 110 MG/DL) 165 H 188 H 132 H 131 H 173 H 07/04 07/03 07/03 07/03 0540 1913 1546 1050 Chemistry Sodium (134 - 147 mEq/L) 140 Potassium (3.4 - 5.0 mEq/L) 4.2 Chloride (100 - 108 mEq/L) 100 Carbon Dioxide (21 - 33 mEq/l) 28 Anion Gap (0 - 20) 17 BUN (7 - 18 mg/dL) 35 H Creatinine (0.6 - 1.3 mg/dL) 5.1 H Glomerular Filtr Rate (80 - 90) 8.8 L Glucose (70 - 110 mg/dL) 179 H POC Glucose (70 - 110 MG/DL) 167 H 131 H 202 H Calcium (8.0 - 10.5 mg/dL) 10.1 Phosphorus (2.5 - 4.9 MG/DL) 3.4 Magnesium (1.80 - 2.40 mg/dL) 2.31 Laboratory Tests 07/04 0540 Hematology WBC (4.5 - 11.0 x10 3/uL) 7.8 RBC (3.54 - 5.02 x10 6/uL) 3.00 L Hgb (11.0 - 15.0 g/dL) 9.0 L Hct (33.0 - 45.0 %) 30.4 L MCV (81.0 - 99.0 fL) 101.3 H MCH (27.0 - 33.0 pg) 30.0 MCHC (33.0 - 37.0 g/dL) 29.6 L RDW (11.5 - 14.5 %) 15.0 H Plt Count (150 - 400 x10 3/uL) 190 MPV (7.0 - 9.0 fL) 9.5 H Neut % (Auto) (56.0 - 77.0 %) 75.9 Lymph % (Auto) (14.0 - 32.0 %) 9.6 L Kerr % (Auto) (4.8 - 9.0 %) 9.8 H Eos % (Auto) (0.3 - 3.7 %) 4.2 H Baso % (Auto) (0.0 - 2.0 %) 0.1 Neut # (Auto) (2.0 - 7.6 x10 3/uL) 5.91 Lymph # (Auto) (1.0 - 3.8 x10 3/uL) 0.75 L Kerr # (Auto) (0.1 - 0.8 x10 3/uL) 0.76 Eos # (Auto) (0.0 - 0.2 x10 3/uL) 0.33 H Baso # (Auto) (0.0 - 0.2 x10 3/uL) 0.01 Abs Immat Gran (auto) (0.00 - 0.03 x10 3/uL) 0 .03 Add Manual Diff NO Immature Gran % (0.0 - 2.0 %) 0.4 Nucleated RBC % (0 - 0 %) 0.0 Nucleated RBCs # (Man) (0.0 - 0.1 x10 3/uL) 0.0 0 Laboratory Tests 07/04 0540 Toxicology Random Vancomycin (mcg/mL) 19.9 Laboratory Tests 07/06 07/05 07/05 07/05 0528 1842 1524 1142 Chemistry POC Glucose (70 - 110 MG/DL) 175 H 167 H 127 H 177 H Diagnosis, Assessment Plan Free Text A P: Patient seen and evaluated, discussed with care team, images and laboratories reviewed. End-stage renal disease on c hronic hemodialysis, Sunday, and Sunday, plan for hemodialysis today Status post left heart cath with multi-vessel co ronary artery disease, respiratory evaluation for CABG. Hypertension: Monitor blood pressure closely and adjust medications as needed Hyperlipidemia: Lipitor Diabetes mellitus: Insulin: Monitor blood sugar closely adjust medications as needed Anemia: We will start Epogen 4000 subcu 3 times a week Elevated alkaline phosphatase we will check PTH. 06/23/2022 plan for filtration today if her bloo d pressure allows, had hemodialysis yesterday. See showed hemoglobin 9. 1, platelet 136, blood count 12.1. We will increase Epoge n to 6000 subcu 3 times a week, PTH 660 we will add Rocaltrol 0.5 mcg p.o. daily, will add midodrine 5 mg p.o. 3 times daily to allow for ultrafiltration. 06/24/2022 laboratory for th is morning showed sodium 136, potassium 4.9, CO2 23, BUN 50, creatinine 5.8, phos phorus 7.1 we will add Renvela 2 p.o. with each meal , hemoglobin 9.3, platelet 152, blood count 13.3 , for hemodialysis today, 4 hours, 2K, ultrafiltration 3 to 4 L if tolerated , seen during HD. 06/25/2022 laboratory [facility] showed sodium 137, potassium 4.3, CO2 25, BUN 31, creatinine 4.5, alkaline phosphatase 272, st atus post ultrafiltration yesterday, 3.9 L removed, plan for dialysis in t he morning. 06/26/2022 laboratory this [facility] showed sodium 137, potassium 4.4, CO2 22, BUN 39, creatinine 5.4, hemoglob in 9.8, platelet 145, blood count 14, phosphorus 6.8 we will increase Renvela to 4 p.o. with each meal, plan for hemodialysis today, 4 hours, 3K, ultrafiltration 3 to 4 L if tolerat ed 06/27/2022 status post peripheral angiogram/inte rvention yesterday, only had less than 2 hours of dialysis yesterday due to hypotension postprocedure, will plan on hemodialysis today, 4 hours, 3K, ultrafiltration 3 to 4 L if tolerated 06/28/2022 status post hemodialysis yesterday, w ill plan for ultrafiltration today 3 to 4 L if tolerated. Laboratory this [facility] showed sodium 136, potassium 4.2, CO2 22, BUN 22, creatinine 3.9, h emoglobin 8.9, platelet 149, blood count 10.8 06/29/2022 status post ultrafiltration yesterday 4 L removed, plan for hemodialysis today, 4 hours, 3K, ultrafiltration 3 to 4 L if tolerated. 06/30/2022 laboratory this [facility] showed sodium 138, potassium 4.2, CO2 24, BUN 22, creatinine 4.1, hemoglobin 9.2, plat elet 195, white blood count 12, status post hemodialysis yesterday, 3 L removed. 07.01.22: Pt feels better. For HD today. will us e K2 [place]. I was then notified her RN that the pt has code blue in the radiology depertment. she is now alert and awake. will continue dialysis without any ch anges in the original order. 07.02.22: pt had code blue yesterday. Did not lo ose pulse. she thinks it was panic attack. had dialysis yesterday with net ne gative fo 3L. Feels better today. BP has been stable and So2 is 100%. will resume TTS schedule. Electrolyts and BMD are all well controlled. 07/03/2022 laboratory this morning showe d sodium 142, potassium 4, CO2 26, BUN 24, creatinine 4.5, hemoglobin 8.7, platelet 203 , blood count 8.8, plan for dialysis in the morning. 07/04/2022 for hemodialysis today, 4 hours, 3K, ultrafiltration 3 to 4 L if tolerated, seen during HD 07/05/2022 status post hemodialysis yesterday, p redialysis labs reviewed and acceptable, plan for dialysis in the morning, wi ll check predialysis labs. 07/06/2022 plan for hemodial ysis today, 4 hours, 3K, ultrafiltration 3 to 4 L if tolerated Consultants: cardiology, cardiovascular surgery, nephrology, wound care Electronically Signed by Jennifer Shelton MD on at 0905 [facility] #:[id number] END OF REPORT 2022-07-05 13:33:00-00:00 [facility] ([facility]) Pulmonology Progress Note REPORT#:[id number] REPORT STATUS: Signed DATE:07/05/22 TIME: 1333 PATIENT: MESERET MOTTA UNIT #: [id number] ROOM/BED: [place] [id number] : 56 AGE: 67 SEX: F ATTEND: Adonis Gaytan MD ADM AUTHOR: Ana Bobo * ALL edits or amendments must be made on the [employer]/computer document * Subjective Comments: On NC, feels better, no new complaints ROS All systems rev neg: except as marked Objective General VS/I O: Last Documented: Result Date Time Pulse Ox 99 07/05 1143 B/P 118/69 07/05 1143 B/P Mean 85.2 07/05 1143 O2 Delivery Nasal cannula 07/05 1143 Temp 36.8 07/05 1143 Pulse 86 07/05 1143 Resp 17 07/05 1143 O2 Flow Rate 2 07/05 0816 FiO2 21 06/28 2342 24 hour I O ending at 0700: 07/05 0700 07/04 1900 Intake Total 200 Output Total 3000 Balance 200 -3000 Intake, Oral 200 Output, 3000 Hemodialysis PATIENT WEIGHT: Weight (lb): 245 Weight (oz): 9.52 Weight (kg): 111.13 Medications: Active Meds + DC'd Last 24 Hrs Calcium Carbonate (TUMS CHEW TAB) 1,000 MG Q6H P RN PRN PO Vancomycin HCl (VANCOMYCIN HCL) 1,000 MG ONCE ON E IV (DC) Sodium Chloride (SODIUM CHLORIDE 0.9%) 250 ML Sennosides (Senna Lax 8.6 MG TABLET) 8.6 MG BID PO Polyethylene Glycol (MIRALAX) 17 GM DAILY PO Magnesium Hydroxide (MILK OF MAGNESIA) 30 ML BID PRN PRN PO Epoetin Vanesa-epbx (RETACRIT) 6,000 UNIT TuThSa@2 100 SUBQ Mupirocin (BACTROBAN 2% 22 GM OINTMENT) 1 APPLI C BID NASAL Miscellaneous Information (VANCOMYCIN PHARMACY T O DOSE) 1 EACH ASDIR IV (CKD) Lactulose (LACTULOSE) 20 GM DAILY PRN PRN PO Docusate Sodium (COLACE) 100 MG BID PO Sodium Chloride (OCEAN) 1 SPRAY Q2H PRN PRN NASA L Albuterol/Ipratropium (DUONEB) 3 ML RTQ4H PRN DC N NEB Ticagrelor (BRILINTA) 90 MG Q12HR PO Atropine Sulfate (ATROPINE SULFATE 0.1MG/ML SYR) 0.5 MG ASDIR PRN IV Sodium Chloride (SODIUM CHLORIDE 0.9%) 500 ML DIR PRN IV Sevelamer Carbonate (RENVELA) 3,200 MG C MEALS P O Calcitriol (RocaltroL) 0.5 MCG DAILY PO Midodrine (PROAMATINE) 5 MG 0900,1300,1700 PO Levothyroxine Sodium (LEVOTHYROXINE SODIUM) 150 MCG DAILY 0600 PO Buspirone HCl (BUSPAR) 5 MG BID PO Metoprolol Tartrate (LOPRESSOR) 12.5 MG Q12HR PO Pantoprazole (PROTONIX) 40 MG 0600,1800 PO Midodrine (PROAMATINE) 10 MG DIALYSIS-DOSE BEFOR E PO (CKD) Albumin Human (ALBUMINAR-25%) 12.5 GM ASDIR PRN IV Heparin Sodium (Porcine) (HEPARIN SODIUM) 3,000 UNIT ASDIR PRN DIALYSIS Lidocaine HCl (LIDOCAINE HCL/PF) 0.5 ML ASDIR DC N I-DERMAL (CKD) Mannitol (MANNITOL 25% 12.5GM/50ML) 12.5 GM ASDI R PRN IV Sodium Chloride (SODIUM CHLORIDE 0.9%) 2,000 ML ASDIR PRN IV Sodium Chloride (SODIUM CHLORIDE) 5 ML ASDIR PRN IV Sodium Chloride (SODIUM CHLORIDE) 10 ML ASDIR DC N IV Sodium Chloride (SODIUM CHLORIDE 0.9%) 250 ML DIR PRN IV Aspirin (ASPIRIN) 81 MG C BK PO Atorvastatin Calcium (LIPITOR) 40 MG 2100 PO Insulin Human Lispro (HUMALOG) 0 AC HS SUBQ Dextrose/Water (DEXTROSE 10% IN WATER) 125 ML DIR PRN IV (CKD) Dextrose/Water (DEXTROSE 10% IN WATER) 250 ML DIR PRN IV (CKD) Glucagon (GLUCAGON) 1 MG ASDIR PRN IM Melatonin (Melatonin) 3 MG BEDTIME PRN PRN PO Acetaminophen (TYLENOL) 650 MG Q4H PRN PRN PO Heparin Sodium (HEPARIN 5000 UNITS/ML) 5,000 UNI T ASDIR PRN IV Nitroglycerin (NITROSTAT) 0.4 MG Q5M PRN PRN SL Ondansetron HCl (ZOFRAN) 4 MG Q6H PRN PRN IV Physical Exam General appearance: alert, awake, oriented, no a cute distress Head/eyes: atraumatic, normocephalic, PERRL Neck: supple/no meningismus, no bruit/NL carotid s, no lymphadenopathy Cardiovascular: normal S1/S2, no rub, no gallop Respiratory/chest: decreased breath sounds, symmetric expansion, no distress, no tenderness Abdomen: soft, normal bowel sounds, no distentio n, no guarding Extremities: edema, no clubbing Neuro/SURGICAL SPECIALIST: alert, oriented X 3, no motor deficit s Skin: dry, normal color Ulcer: Type/cause: diabetic, arterial Location: foot (bilateral toes) Psychiatry: normal affect, no hallucinations Results Findings/Data: Laboratory Tests 07/05 07/05 07/04 07/04 1142 6046 1934 1634 Chemistry POC Glucose (70 - 110 MG/DL) 177 H 153 H 165 H 188 H Diagnosis, Assessment Plan Free Text A P: 1- Acute hypoxemic respiratory failure 2- Acute pulm edema 3- Cardiology disease status post PCI 4- Chronic diastolic heart failure HFpEF 5- End-stage renal disease on hemodialysis 6- Hypertension/DM2 7- Peripheral vascular disease/ischemic ulcer 8- Obesity ? Underlying JAMILAH - Nasal cannula O2, titrate to keep sats above 9 4%. On 4L - Hemodialysis with fluid removal per nephrology service - DuoNeb every 4 hours as needed - Continue to optimize heart failure management, blood pressure control - Wound care - Outpatient sleep study - DVT prophylaxis - Transferred briefly to ICU after suspected vas ovagal event now resolved - D/C Planning at 1334 RPT #:[id number] END OF REPORT 2022-07-05 11:49:00-00:00 [facility] ([facility]) Wound Care Progress Note REPORT#:[id number] REPORT STATUS: Signed DATE:07/05/22 TIME: 1149 PATIENT: MESERET MOTAT UNIT #: [id number] ROOM/BED: [place] [id number] : 56 AGE: 67 SEX: F ATTEND: Adonis Gaytan MD ADM AUTHOR: Sybil Byers MD * ALL edits or amendments must be made on the [employer]/computer document * Subjective Chief complaint: Woundcare FU for foot, hand leg ulcers; less dariana n, improving Objective General Medications: Active Meds + DC'd Last 24 Hrs Calcium Carbonate (TUMS CHEW TAB) 1,000 MG Q6H P RN PRN PO Vancomycin HCl (VANCOMYCIN HCL) 1,000 MG ONCE ON E IV (DC) Sodium Chloride (SODIUM CHLORIDE 0.9%) 250 ML Sennosides (Senna Lax 8.6 MG TABLET) 8.6 MG BID PO Polyethylene Glycol (MIRALAX) 17 GM DAILY PO Magnesium Hydroxide (MILK OF MAGNESIA) 30 ML BID PRN PRN PO Epoetin Vanesa-epbx (RETACRIT) 6,000 UNIT TuThSa@2 100 SUBQ Mupirocin (BACTROBAN 2% 22 GM OINTMENT) 1 APPLIC BID NASAL Miscellaneous Information (VANCOMYCIN PHARMACY T O DOSE) 1 EACH ASDIR IV (CKD) Lactulose (LACTULOSE) 20 GM DAILY PRN PRN PO Docusate Sodium (COLACE) 100 MG BID PO Sodium Chloride (OCEAN) 1 SPRAY Q2H PRN PRN NASA L Albuterol/Ipratropium (DUONEB) 3 ML RTQ4H PRN DC N NEB Ticagrelor (BRILINTA) 90 MG Q12HR PO Atropine Sulfate (ATROPINE SULFATE 0.1MG/ML SYR) 0.5 MG ASDIR PRN IV Sodium Chloride (SODIUM CHLORIDE 0.9%) 500 ML DIR PRN IV Sevelamer Carbonate (RENVELA) 3,200 MG C MEALS P O Calcitriol (RocaltroL) 0.5 MCG DAILY PO Midodrine (PROAMATINE) 5 MG 0900,1300,1700 PO Levothyroxine Sodium (LEVOTHYROXINE SODIUM) 150 MCG DAILY 0600 PO Buspirone HCl (BUSPAR) 5 MG BID PO Metoprolol Tartrate (LOPRESSOR) 12.5 MG Q12HR PO Pantoprazole (PROTONIX) 40 MG 0600,1800 PO Midodrine (PROAMATINE) 10 MG DIALYSIS-DOSE BEFOR E PO (CKD) Albumin Human (ALBUMINAR-25%) 12.5 GM ASDIR PRN IV Heparin Sodium (Porcine) (HEPARIN SODIUM) 3,000 UNIT ASDIR PRN DIALYSIS Lidocaine HCl (LIDOCAINE HCL/PF) 0.5 ML ASDIR DC N I-DERMAL (CKD) Mannitol (MANNITOL 25% 12.5GM/50ML) 12.5 GM ASDI R PRN IV Sodium Chloride (SODIUM CHLORIDE 0.9%) 2,000 ML ASDIR PRN IV Sodium Chloride (SODIUM CHLORIDE) 5 ML ASDIR PRN IV Sodium Chloride (SODIUM CHLORIDE) 10 ML ASDIR DC N IV Sodium Chloride (SODIUM CHLORIDE 0.9%) 250 ML A SDIR PRN IV Aspirin (ASPIRIN) 81 MG C BK PO Atorvastatin Calcium (LIPITOR) 40 MG 2100 PO Insulin Human Lispro (HUMALOG) 0 AC HS SUBQ Dextrose/Water (DEXTROSE 10% IN WATER) 125 ML DIR PRN IV (CKD) Dextrose/Water (DEXTROSE 10% IN WATER) 250 ML DIR PRN IV (CKD) Glucagon (GLUCAGON) 1 MG ASDIR PRN IM Melatonin (Melatonin) 3 MG BEDTIME PRN PRN PO Acetaminophen (TYLENOL) 650 MG Q4H PRN PRN PO Heparin Sodium (HEPARIN 5000 UNITS/ML) 5,000 UNI T ASDIR PRN IV Nitroglycerin (NITROSTAT) 0.4 MG Q5M PRN PRN SL Ondansetron HCl (ZOFRAN) 4 MG Q6H PRN PRN IV Dietitian Nutrition assessment The data set between the solid lines has been im ported from the dietitian's assessment. BMI Calculated: 39.5 Nutrition related diagnosis: Nutrition diagnosis details: Nutrition problem: Nutrition etiology: Nutrition signs and symptoms: Nutrition prescription: Dietitian name: Assessment completed: Physical Exam General appearance: alert, awake Skin: Ulcers on dorsum toes, L>R,improving, w le ss erythema @ forefoot, some scabs coming off. LLE warm, RLE cold to touch. Ulcer: Type/cause: diabetic, arterial Location: foot (bilateral toes) Results Findings/Data: Laboratory Tests: 07/05 07/04 07/04 07/04 0524 1939 1634 1204 Chemistry POC Glucose (70 - 110 MG/DL) 153 H 165 H 188 H 132 H Laboratory Tests: 07/05 07/04 07/04 07/04 0524 1939 1634 1204 Chemistry POC Glucose (70 - 110 MG/DL) 153 H 165 H 188 H 132 H Diagnosis, Assessment Plan Free Text A P: Multiple ulcers, B feet, B hands , sp fall, w ar terial ulcers, B feet - improving; continue Bactroba n BID to all ulcers, leave open to air. Xeroform to LLE foot ulcers. Wound cx- rare Enterococcus ; Severe PVD, BLE - sp angio LLE CAD- tx per cardiology DM ESRD on HD Rehab eval pending [ x] Optimize Nutrition and Glycemic Control [ x] Pressure relieving inte rventions (Low Air Mattress, Prevalon boot, Turn q2h ) [ x] Nursing to implement impaired skin integrit y care plan as per skin care protocol Coordinattion of care D/W [ ] Other MD's [x ] Alex peace [ ] Family [ x ] Nursing [ ] Case Management Electronically Signed by Sybil Byers MD on at 2117 RPT #:[id number] END OF REPORT 2022-07-05 11:43:00-00:00 [facility] ([facility]) Infectious Dis. Progress Note REPORT#:[id number] REPORT STATUS: Signed DATE:07/05/22 TIME: 1143 PATIENT: MESERET MOTTA UNIT #: [id number] ROOM/BED: [place] [id number] : 56 AGE: 67 SEX: F ATTEND: Adonis Gaytan MD ADM AUTHOR: Kasey Mendez MD * ALL edits or amendments must be made on the [employer] document * Subjective HPI: 67 yr old with esrd on hd admitted after multiple falls and left foot vascular ulcers sec to severe PVD. Patient reports: No: cough, diarrhea, fever, headache, nausea, sh ortness of breath, vomiting. Portions of this section wer e scribed by Mohini Orozco on 07/05/22 at 1143 Objective General VS/I O: Vital Signs Date Temp Pulse Resp B/P B/P Mean Pulse Ox FiO 2 07/04-07/05 97.5-98.2 74-87 15-18 112-128/66-75 83.5-92.7 98-100 Last Documented: Result Date Time Pulse Ox 98 07/05 0714 B/P 128/75 07/05 714 B/P Mean 92.7 07/05 714 O2 Delivery Nasal cannula 07/05 714 Temp 97.5 07/05 0714 Pulse 84 07/05 0714 Resp 15 07/05 0714 O2 Flow Rate 4 07/04 2100 FiO2 21 06/28 2342 Vital Signs: Date Time Temp Pulse Resp B/P B/P Pulse O2 O2 F low FiO2 Mean Ox Delivery Rate 07/05 714 97.5 84 15 128/75 92.7 98 Nasal cannula 07/05 0519 98.2 79 16 120/66 84.3 100 Nasal cannula 07/04 2310 98.1 74 18 123/74 90.5 99 Nasal cannula 07/04 2100 Nasal 4 cannula 07/04 1937 97.9 87 16 124/68 86.6 99 Nasal cannula 07/04 1636 97.9 83 16 112/69 83.5 98 Nasal 3 cannula 24 hour I O ending at 0700: 07/05 0700 07/04 1900 Intake Total 200 Output Total 3000 Balance 200 -3000 Intake, Oral 200 Output, 3000 Hemodialysis PATIENT WEIGHT: Weight (lb): 245 Weight (oz): 9.52 Weight (kg): 111.13 Physical Exam General appearance: alert, awake, oriented Wound/incision: Location: jarrett left more than right foot ulcers, erythema Site condition: dressing clean dry, dressing in tact Head/Eyes: clear cornea, PERRL ENT: moist mucosal membranes Neck: full range of motion, no JVD Cardiovascular: normal heart sounds Respiratory: rhonchi Abdomen: no CVA tenderness, no distention, no gu arding Genitourinary: no flank pain, no urinary cathete r Extremities: abnormal capill dre refill, abnormal temperature, edema, moves all, normal motor function, no clubbing, no contractu re, no cyanosis Skin: erythema, dry Ulcer: Type/cause: diabetic, arterial Location: foot (bilateral toes) Results Findings/Data: Laboratory Tests 07/05 07/04 07/04 07/04 0524 1939 1634 1204 Chemistry POC Glucose (70 - 110 MG/DL) 153 H 165 H 188 H 132 H Medication(s) Ordered: Ahfs Category Unknown Sig/Enedina Start time Last Medication Dose Route Stop Time Status Admin Melatonin 3 MG BEDTIME PRN PRN 06/21 1900 AC 1 09/02 PO 07/21 1859 2007 Anti-Infective Agents Sig/Enedina Start time Last Medication Dose Route Stop Time Status Admin Vancomycin HCl 1,000 MG ONCE ONE 07/04 1500 DC 07/04 Sodium Chloride 250 ML IV 07/04 1559 1425 Miscellaneous 1 EACH ASDIR 06/30 1300 CKD Information IV 07/30 1259 Autonomic Drugs Sig/Enedina Start time Last Medication Dose Route Stop Time Status Admin Albuterol/Ipratropium 3 ML RTQ4H PRN PRN 06/28 1215 AC NEB 07/28 1214 Atropine Sulfate 0.5 MG ASDIR PRN 06/27 1600 AC IV 07/27 1559 Midodrine 5 MG 0900,1300,1700 06/23 0900 AC PO 07/23 0859 0818 Midodrine 10 MG DIALYSIS-DOSE BEFORE 06/22 1545 CKD 06/26 PO 07/22 1544 1856 Blood Derivatives Sig/Enedina Start time Last Medication Dose Route Stop Time Status Admin Albumin Human 12.5 GM ASDIR PRN 06/22 1530 AC 1 08/28 IV 07/23 1529 1909 Blood Formation,Coagulation Sig/Enedina Start time Last Medication Dose Route Stop Time Status Admin Epoetin Vanesa-epbx 6,000 UNIT TuThSa@2100 07/01 2300 AC 07/04 SUBQ 07/31 2259 2131 Ticagrelor 90 MG Q12HR 06/28 1115 AC 07/05 PO 07/28 1114 0818 Heparin Sodium 3,000 UNIT ASDIR PRN 06/22 1530 AC 07/04 (Porcine) DIALYSIS 07/22 1529 0805 Heparin Sodium 5,000 UNIT ASDIR PRN 06/21 1730 AC 06/22 IV 07/21 1729 1449 Cardiovascular Drugs Sig/Enedina Start time Last Medication Dose Route Stop Time Status Admin Metoprolol Tartrate 12.5 MG Q12HR 06/22 2100 AC 07/05 PO 07/22 2059 0817 Lidocaine HCl 0.5 ML ASDIR PRN 06/22 1530 CKD I-DERMAL 07/23 1529 Atorvastatin Calcium 40 MG 2100 06/21 2100 AC 09/04 PO 07/21 205 2131 Nitroglycerin 0.4 MG Q5M PRN PRN 06/21 1730 AC SL 07/21 1729 Central Nervous System Agents Sig/Enedina Start time Last Medication Dose Route Stop Time Status Admin Buspirone HCl 5 MG BID 06/22 2100 AC 07/05 PO 07/22 205 0817 Aspirin 81 MG C BK 06/22 0800 AC 07/05 PO 07/22 0759 0817 Acetaminophen 650 MG Q4H PRN PRN 06/21 1730 AC 07/04 PO 07/21 1729 2135 Electrolytic, Caloric, And Bailey Sig/[place] Start time Last Medication Dose Route Stop Time Status Admin Calcium Carbonate 1,000 MG Q6H PRN PRN 07/04 16 45 AC 07/04 PO 08/03 1644 1708 Lactulose 20 GM DAILY PRN PRN 06/30 1045 AC PO 07/30 1044 0038 Sodium Chloride 500 ML ASDIR PRN 06/27 1600 AC IV 07/27 1559 Sevelamer Carbonate 3,200 MG C MEALS 06/26 0800 AC 07/05 PO 07/26 0759 0816 Mannitol 12.5 GM ASDIR PRN 06/22 1530 AC IV 07/23 1529 Sodium Chloride 2,000 ML ASDIR PRN 06/22 1530 A C 07/04 IV 07/23 1529 0804 Sodium Chloride 5 ML ASDIR PRN 06/22 1530 AC IV 07/22 1529 Sodium Chloride 10 ML ASDIR PRN 06/22 1530 AC 1 09/04 IV 07/22 1529 0806 Sodium Chloride 250 ML ASDIR PRN 06/22 1530 AC IV 07/22 1529 Dextrose/Water 125 ML ASDIR PRN 06/21 1900 CKD IV 07/21 1859 Dextrose/Water 250 ML ASDIR PRN 06/21 1900 CKD IV 07/21 1859 Eye, Ear, Nose And Throat (Een Sig/Enedina Start time Last Medication Dose Route Stop Time Status Admin Sodium Chloride 1 SPRAY Q2H PRN PRN 06/29 1015 AC 06/29 NASAL 07/29 1014 1724 Gastrointestinal Drugs Sig/Enedina Start time Last Medication Dose Route Stop Time Status Admin Sennosides 8.6 MG BID 07/03 2100 AC 07/05 PO 08/02 205 0818 Polyethylene Glycol 17 GM DAILY 07/03 1115 AC 09/04 PO 08/02 1114 1425 Magnesium Hydroxide 30 ML BID PRN PRN 07/02 134 5 AC 07/05 PO 08/01 1344 0038 Docusate Sodium 100 MG BID 06/30 0900 AC 07/05 PO 07/30 0859 0818 Pantoprazole 40 MG 0600,1800 06/22 1800 AC 06/09 8 PO 07/22 1759 0557 Ondansetron HCl 4 MG Q6H PRN PRN 06/21 1730 AC 07/05 IV 07/21 1729 0042 Hormones And Synthetic Substit Sig/Enedina Start time Last Medication Dose Route Stop Time Status Admin Levothyroxine Sodium 150 MCG DAILY 0600 06/23 0 600 AC 07/05 PO 07/23 0559 0557 Insulin Human Lispro 0 AC HS 06/21 2100 AC 06/09 8 SUBQ 07/21 2058 0816 Glucagon 1 MG ASDIR PRN 06/21 1900 AC IM 07/21 1859 Skin And Mucous Membrane Agent Sig/Enedina Start time Last Medication Dose Route Stop Time Status Admin Mupirocin 1 APPLIC BID 07/01 2100 AC 07/05 NASAL 07/06 0901 0818 Vitamins Sig/Enedina Start time Last Medication Dose Route Stop Time Status Admin Calcitriol 0.5 MCG DAILY 06/23 900 AC 07/05 PO 07/23 0859 0816 Recent Impressions: NUCLEAR MEDICINE - NM BONE 3 PHASE 07/04 07 Report Impression - Status: SIGNED Entered: 07/04/2022 1850 IMPRESSION: 1. No evidence of cellulitis or osteomyelitis. 2. Active osseous abnormality in the inferior an d posterior calcaneus bilaterally likely representing degene rative change as noted on the left foot plain radiographs. Impression By: [email or web address] Tiffany Beavers Portions of this section alden spears scribed by Mohini Orozco on 07/05/22 at 1143 Diagnosis, Assessment Plan Free Text A P: 1. Severe PVd: vascular ulce rs of the left foot : infection with e. fecalis: s/p vascular intrvention. on vanc post hd day 6 out of 7. finishing tomorrow 2. Leucocytosis: multifactor ial sec to foot ulcers infection, leukemoid reaction to fluid overload. 3. ESRD: on hd. 4. Dmii: with DFU: on insulin 5. diastolic heart failure 6. hypertension Consultants: cardiology, cardiovascular surgery, nephrology, wound care Portions of this section alden spears scribed by Mohini Orozco on 07/05/22 at 1143 at 0843 RPT #:[id number] END OF REPORT 2022-07-05 11:41:00-00:00 [facility] Hospitalist Progress Note REPORT#:[id number] REPORT STATUS: Signed DATE:07/05/22 TIME: 1141 PATIENT: MESERET MOTTA UNIT #: [id number] ROOM/BED: [place] [id number] : 56 AGE: 67 SEX: F ATTEND: Adonis Gaytan MD ADM AUTHOR: Adonis Gaytan MD * ALL edits or amendments must be made on the [employer]/computer document * Subjective Chief complaint: very pleasant. no cp no sob Objective General VS/I O: Vital Signs: Date Time Temp Pulse Resp B/P B/P Pulse O2 O2 F low FiO2 Mean Ox Delivery Rate 07/05 0714 97.5 84 15 128/75 92.7 98 Nasal cannula 07/05 0519 98.2 79 16 120/66 84.3 100 Nasal cannula 07/04 2310 98.1 74 18 123/74 90.5 99 Nasal cannula 07/04 2100 Nasal 4 cannula 07/04 1937 97.9 87 16 124/68 86.6 99 Nasal cannula 07/04 1636 97.9 83 16 112/69 83.5 98 Nasal 3 cannula 24 hour I O ending at 0700: 07/05 0700 07/04 1900 Intake Total 200 Output Total 3000 Balance 200 -3000 Intake, Oral 200 Output, 3000 Hemodialysis PATIENT WEIGHT: Weight (lb): 245 Weight (oz): 9.52 Weight (kg): 111.13 Physical Exam General appearance: alert, awake Head/Eyes: atraumatic, clear cornea, EOMI, kristopher l conjunctiva/sclera, PERRLA ENT: moist mucosal membranes Neck: supple/no meningismus, no JVD Cardiovascular: normal heart sounds, regular rat e rhythm, no murmur Respiratory: aerating well, clear to auscultatio n, symmetric expansion Abdomen: non-tender, normal bowel sounds, soft, no distention Extremities: edema, moves all Neuro/SURGICAL SPECIALIST: alert, oriented X 3, normal speech, n o motor deficits Ulcer: Type/cause: diabetic, arterial Location: foot (bilateral toes) Psychiatry: normal affect Results Radiology data: Laboratory Tests 07/04/22 0540: [Embedded Image Not Available] Current Medications Sig/Enedina Start time Last Medication Dose Route Stop Time Status Admin Calcium Carbonate 1,000 MG Q6H PRN PRN 07/04 164 5 AC 07/04 PO 08/03 1644 1708 Vancomycin HCl 1,000 MG ONCE ONE 07/04 1500 DC 1 09/04 Sodium Chloride 250 ML IV 07/04 1559 1425 Sennosides 8.6 MG BID 07/03 2100 AC 07/05 PO 08/02 2059 0818 Polyethylene Glycol 17 GM DAILY 07/03 1115 AC PO 08/02 1114 1425 Magnesium Hydroxide 30 ML BID PRN PRN 07/02 1345 AC 07/05 PO 08/01 1344 0038 Epoetin Vanesa-epbx 6,000 UNIT Mariannaa@2100 07/01 2300 AC 07/04 SUBQ 07/31 2259 2131 Mupirocin 1 APPLIC BID 07/01 2100 AC 07/05 NASAL 07/06 0901 0818 Miscellaneous 1 EACH ASDIR 06/30 1300 CKD Information IV 07/30 1259 Lactulose 20 GM DAILY PRN PRN 06/30 1045 AC 06/09 8 PO 07/30 1044 0038 Docusate Sodium 100 MG BID 06/30 0900 AC 07/05 PO 07/30 0859 0818 Sodium Chloride 1 SPRAY Q2H PRN PRN 06/29 1015 A C 06/29 NASAL 07/29 1014 1724 Albuterol/Ipratropiu 3 ML RTQ4H PRN PRN 06/28 1 215 AC m NEB 07/28 1214 Ticagrelor 90 MG Q12HR 06/28 1115 AC 07/05 PO 07/28 1114 0818 Atropine Sulfate 0.5 MG ASDIR PRN 06/27 1600 AC IV 07/27 1559 Sodium Chloride 500 ML ASDIR PRN 06/27 1600 AC IV 07/27 1559 Sevelamer Carbonate 3,200 MG C MEALS 06/26 0800 AC 07/05 PO 07/26 0759 0816 Calcitriol 0.5 MCG DAILY 06/23 0900 AC 07/05 PO 07/23 0859 0816 Midodrine 5 MG 0900,1300,1700 06/23 09 AC 06/09 8 PO 07/23 0859 0818 Levothyroxine Sodium 150 MCG DAILY 0600 06/23 06 00 AC 07/05 PO 07/23 0559 0557 Buspirone HCl 5 MG BID 06/22 2100 AC 07/05 PO 07/22 2058 0817 Metoprolol Tartrate 12.5 MG Q12HR 06/22 2100 AC 07/05 PO 07/22 2058 0817 Pantoprazole 40 MG 0600,1800 06/22 1800 AC 07/05 PO 07/22 1759 0557 Midodrine 10 MG DIALYSIS-DOSE 06/22 1545 CKD BEFORE PO 07/22 1544 1856 Albumin Human 12.5 GM ASDIR PRN 06/22 1530 AC IV 07/23 1529 1909 Heparin Sodium 3,000 UNIT ASDIR PRN 06/22 1530 A C 07/04 (Porcine) DIALYSIS 07/22 1529 0805 Lidocaine HCl 0.5 ML ASDIR PRN 06/22 1530 CKD I-DERMAL 07/23 1529 Mannitol 12.5 GM ASDIR PRN 06/22 1530 AC IV 07/23 1529 Sodium Chloride 2,000 ML ASDIR PRN 06/22 1530 AC 07/04 IV 07/23 1529 0804 Sodium Chloride 5 ML ASDIR PRN 06/22 1530 AC IV 07/22 1529 Sodium Chloride 10 ML ASDIR PRN 06/22 1530 AC IV 07/22 1529 0806 Sodium Chloride 250 ML ASDIR PRN 06/22 1530 AC IV 07/22 1529 Aspirin 81 MG C BK 06/22 0800 AC 07/05 PO 07/22 0759 0817 Atorvastatin Calcium 40 MG 2100 06/21 2100 AC PO 07/21 2059 2131 Insulin Human Lispro 0 AC HS 06/21 2100 AC 07/05 SUBQ 07/21 2059 0816 Dextrose/Water 125 ML ASDIR PRN 06/21 1900 CKD IV 07/21 1859 Dextrose/Water 250 ML ASDIR PRN 06/21 1900 CKD IV 07/21 1859 Glucagon 1 MG ASDIR PRN 06/21 1900 AC IM 07/21 1859 Melatonin 3 MG BEDTIME PRN PRN 06/21 1900 AC PO 07/21 1859 2008 Acetaminophen 650 MG Q4H PRN PRN 06/21 1730 AC 1 09/04 PO 07/21 1729 2135 Heparin Sodium 5,000 UNIT ASDIR PRN 06/21 1730 A C 06/22 IV 07/21 1729 1449 Nitroglycerin 0.4 MG Q5M PRN PRN 06/21 1730 AC SL 07/21 1729 Ondansetron HCl 4 MG Q6H PRN PRN 06/21 1730 AC 09/05 IV 07/21 1729 0042 Laboratory Tests: 07/05 07/04 07/04 07/04 0524 1939 1634 1204 Chemistry POC Glucose (70 - 110 MG/DL) 153 H 165 H 188 H 132 H Diagnosis, Assessment Plan Consultants: cardiology, cardiovascular surgery, nephrology, wound care Free Text DxA P Notes Free text DxA P notes: Assessment and plans: Three-vessel coronary artery disease CV surgery following. Dopplers, alexandro duplex were ordered patient is off the heparin drip on aspirin, Brilinta, atorvastatin, metoprolol -echo from OSH LVEF 50% cardiology seen -S/p PCI to left circumflex 06/27 Patient needs staged PCI to mid and proximal LAD in 1 to 2 weeks as outpatient Constipation -miralex. vaginal bleeding- fibroids 07/01 - bleeding for 2 weeks and had no vaginal bleeding for 15 years...ask director [employer] to see and check pelvic ultrasound. 07/02 - usg shows fibroids and director [employer] wants outpt f /u for endometrial bx. Severe PAD/toe ulcer: Status post MORPHOLOGIST and atherec cheri with CSI followed by MORPHOLOGIST with stable balloon on left anterior and posterior tibial artery, for r ight anterior and posterior tibial artery Will need staged intervention as p er cardiology. 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 Plan for peripheral angiogram in the morning as per c ardiology 06/29 Acute respiratory failure with hypoxemia Patient presented with supplemental nasal cannu la oxygen -Pulmonary edema, pleural effusion on CT chest, no PE Patient needs to be evaluated for home oxygen o nce patient is medically cleared for discharge On 2 L oxygen via nasal cannula 06/29 DuoNeb treatment Pulmonary consulted -Continue to optimize heart failure management, blood pressure control and Outpatient sleep study Leukocytosis: -CT chest result done -Afebrile -Patient has multiple ulcers in hands and feet. Wound cx growing ent fecalis, rocephin switched to unasyn 07/04 -blood culture 06/26 (was not ordered on admissi on) no growth till now 06/30- WBC increasing on unasyn. consult ID. ran prieto? 07/04- bone scan ordered for her toes. results p ending. 07/05 - bone scan negative for osteo End-stage renal disease on hemodialysis Patient is on a Sunday sched jaxon [employer]ip[employer] Room Supervisor following Functional quadriplegia: Rehab consult as recommended by cardiology. Pat ient lives alone. 06/28 Elevated LFTs Secondary to hepatic congestion Monitor LFTs Type 2 diabetes mellitus on insulin sliding scale Diabetic diet Hypothyroidism Resume Synthroid Anemia of chronic disease -Transfuse for Hb <7 -No bleeding hypotension on midodrine on empiric IV CTX check labs in am SCD for DVT prophylaxis. Disposition: S/p PCI and 1 stent placement in le ft circumflex, plan for peripheral angiogram to right anterior and poste rior tibial artery. On 2 L oxygen via nasal cannula. On Unasyn. Patient ricki es alone. Case management consulted for inpatient rehab. Continue inpatien t care. 06/30- WBC worsening. ID consulted. awaiting tra nsfer to rehab. 07/01- WBC better. ABX changed from unas yn to VANC. pt c/o DUB. 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 07/02- Possible panic attack yesterday...to CCU..transfer back to telemetry. d/w bedside nurse. 07/03 - miralex for constipation. 07/04- Bone scan ordered for the toes. d /w case aide and plan is for SNF at [place]. awaiting insurance approval. 07/05 - awaiting SNF approval from insurance. Quality: Gen Med Crit Care VTE Prophylaxis VTE prophylaxis initiated: yes Current Medications Current medication review: I attest that the foregoing medication list in [facility] medical record is true, accurate, and complete to the best of my knowled ge. Electronically Signed by Adonis Gaytan MD on 06/09 02/27 at 1143 RPT #:[id number] END OF REPORT 2022-07-05 11:25:00-00:00 [facility] Cardiology Progress Note REPORT#:[id number] REPORT STATUS: Signed DATE:07/05/22 TIME: 1125 PATIENT: MESERET MOTTA UNIT #: [id number] ROOM/BED: [place] [id number] : 56 AGE: 67 SEX: F ATTEND: Adonis Gaytan MD ADM AUTHOR: Sabrina Tirado NP * ALL edits or amendments must be made on the el [employer]/computer document * Subjective Chief complaint: stable, waiting on rehab Objective General VS/I O: Laboratory Tests 07/04/22 0540: [Embedded Image Not Available] Current Medications Sig/Enedina Start time Last Medication Dose Route Stop Time Status Admin Calcium Carbonate 1,000 MG Q6H PRN PRN 07/04 164 5 AC 07/04 PO 08/03 1644 1708 Vancomycin HCl 1,000 MG ONCE ONE 07/04 1500 DC 1 09/04 Sodium Chloride 250 ML IV 07/04 1559 1425 Sennosides 8.6 MG BID 07/03 2100 AC 07/05 PO 08/02 2059 0818 Polyethylene Glycol 17 GM DAILY 07/03 1115 AC 1 09/04 PO 08/02 1114 1425 Magnesium Hydroxide 30 ML BID PRN PRN 07/02 1345 AC 07/05 PO 08/01 1344 0038 Epoetin Vanesa-epbx 6,000 UNIT TuThSa@2100 07/01 2 300 AC 07/04 SUBQ 07/31 2259 2131 Mupirocin 1 APPLIC BID 07/01 2100 AC 07/05 NASAL 07/06 0901 0818 Miscellaneous 1 EACH ASDIR 06/30 1300 CKD Information IV 07/30 1259 Lactulose 20 GM DAILY PRN PRN 06/30 1045 AC PO 07/30 1044 0038 Docusate Sodium 100 MG BID 06/30 0900 AC 07/05 PO 07/30 0859 0818 Sodium Chloride 1 SPRAY Q2H PRN PRN 06/29 1015 A C 06/29 NASAL 07/29 1014 1724 Albuterol/Ipratropiu 3 ML RTQ4H PRN PRN 06/28 12 15 AC m NEB 07/28 1214 Ticagrelor 90 MG Q12HR 06/28 1115 AC 07/05 PO 07/28 1114 0818 Atropine Sulfate 0.5 MG ASDIR PRN 06/27 1600 AC IV 07/27 1559 Sodium Chloride 500 ML ASDIR PRN 06/27 1600 AC IV 07/27 1559 Sevelamer Carbonate 3,200 MG C MEALS 06/26 0800 AC 07/05 PO 07/26 0759 0816 Calcitriol 0.5 MCG DAILY 06/23 0900 AC 07/05 PO 07/23 0859 0816 Midodrine 5 MG 0900,1300,1700 06/23 09 AC 06/09 8 PO 07/23 0859 0818 Levothyroxine Sodium 150 MCG DAILY 0600 06/23 06 00 AC 07/05 PO 07/23 0559 0557 Buspirone HCl 5 MG BID 06/22 2100 AC 07/05 PO 07/22 2058 0817 Metoprolol Tartrate 12.5 MG Q12HR 06/22 2100 AC 07/05 PO 07/22 2058 0817 Pantoprazole 40 MG 0600,1800 06/22 1800 AC 07/05 PO 07/22 175 0557 Midodrine 10 MG DIALYSIS-DOSE 06/22 1545 CKD BEFORE PO 07/22 1544 1856 Albumin Human 12.5 GM ASDIR PRN 06/22 1530 AC IV 07/23 1529 1909 Heparin Sodium 3,000 UNIT ASDIR PRN 06/22 1530 A C 07/04 (Porcine) DIALYSIS 07/22 1529 0805 Lidocaine HCl 0.5 ML ASDIR PRN 06/22 1530 CKD I-DERMAL 07/23 1529 Mannitol 12.5 GM ASDIR PRN 06/22 1530 AC IV 07/23 1529 Sodium Chloride 2,000 ML ASDIR PRN 06/22 1530 A C 07/04 IV 07/23 1529 0804 Sodium Chloride 5 ML ASDIR PRN 06/22 1530 AC IV 07/22 1529 Sodium Chloride 10 ML ASDIR PRN 06/22 1530 AC IV 07/22 1529 0806 Sodium Chloride 250 ML ASDIR PRN 06/22 1530 AC IV 07/22 1529 Aspirin 81 MG C BK 06/22 0800 AC 07/05 PO 07/22 0759 0817 Atorvastatin Calcium 40 MG 2100 06/21 2100 AC PO 07/21 2058 213 Insulin Human Lispro 0 AC HS 06/21 2100 AC 07/05 SUBQ 07/21 2058 0816 Dextrose/Water 125 ML ASDIR PRN 06/21 1900 CKD IV 07/21 185 Dextrose/Water 250 ML ASDIR PRN 06/21 1900 CKD IV 07/21 185 Glucagon 1 MG ASDIR PRN 06/21 1900 AC IM 07/21 185 Melatonin 3 MG BEDTIME PRN PRN 06/21 1900 AC PO 07/21 1852007 Acetaminophen 650 MG Q4H PRN PRN 06/21 1730 AC 1 09/04 PO 07/21 172 2135 Heparin Sodium 5,000 UNIT ASDIR PRN 06/21 1730 A C 06/22 IV 07/21 1729 1449 Nitroglycerin 0.4 MG Q5M PRN PRN 06/21 1730 AC SL 07/21 1729 Ondansetron HCl 4 MG Q6H PRN PRN 06/21 1730 AC 1 09/05 IV 07/21 1729 0042 24 hour I O ending at 0700: 07/05 0700 07/04 1900 Intake Total 200 Output Total 3000 Balance 200 -3000 Intake, Oral 200 Output, 3000 Hemodialysis Vital Signs: Date Time Temp Pulse Resp B/P B/P Pulse O2 O2 F low FiO2 Mean Ox Delivery Rate 07/05 1143 36.8 86 17 118/69 85.2 99 Nasal cannula 07/05 0714 36.4 84 15 128/75 92.7 98 Nasal cannula 07/05 0519 36.8 79 16 120/66 84.3 100 Nasal cannula 07/04 2310 36.7 74 18 123/74 90.5 99 Nasal cannula 07/04 2100 Nasal 4 cannula 07/04 1937 36.6 87 16 124/68 86.6 99 Nasal cannula 07/04 1636 36.6 83 16 112/69 83.5 98 Nasal 3 cannula PATIENT WEIGHT: Weight (lb): 245 Weight (oz): 9.52 Weight (kg): 111.13 Physical Exam General appearance: alert, awake, oriented, no a cute distress, pleasant Head/Eyes: atraumatic, PERRL Neck: non-tender, no JVD Cardiovascular: CV assessment: regular rate and rhythm Respiratory: decreased breath sounds, on oxygen, no distress Abdomen: non-tender, obese Genitourinary: no flank pain, no urinary cathete r Lower extremity: LE assessment: normal capillary refill, normal temperature, no edema Musculoskeletal: normal inspection Neuro/SURGICAL SPECIALIST: alert, oriented X 3, normal speech Skin: scabs lower extremities Ulcer: Type/cause: diabetic, arterial Location: foot (bilateral toes) Psychiatry: normal affect, normal mood Diagnosis, Assessment Plan Consultants: cardiology, cardiovascular surgery, nephrology, wound care Free Text DxA P Notes Free Text DxA P Notes: 67 YO female with PMHx of HTN, DM, CHF, ESRD on HD who initially presented at [facility] with SOB and fatigue. Sh e was treated for NSTEMI and acute CHF exacerbation. 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 She is transferred her for CABG evaluation but deemed too high risk for CABG with STS risk score of 17%. 1. NSTEMI/Multivessel CAD 06/27/22: s/p PCI to LCx wit h 2.25 x 20 mm and post dilated with 2.5 NC balloon continue ASA, Brilinta, BB, and statin need staged PCI to mid and proximal LAD (once re hab is completed) stable 2. Acute on chronic Diastolic CHF volume management per nephrology echo from OSH LVEF 50% 3. ESRD on HD per nephrology 4. Diabetes mellitus per admitting team 5. Hypertension -> orthostatic hypotension on midodrine continue low-dose beta-susan for CAD 6. Toe ulcers/severe PAD 06/26/21: s/p peripheral angiogram and MORPHOLOGIST to th e anterior tibial artery ORE ROASTER of right anterior/posterior tibial artery, n eed staged intervention on a later date 7. Debility PT/OT- Rehab eval ongoing Ok to DC to rehab from cardiology standpoint. Electronically Signed by Sabrina Tirado NP on 1 09/05/21 at 1146 Electronically Signed by Herson Tang MD on at 2130 RPT #:[id number] END OF REPORT 2022-07-05 10:37:00-00:00 [facility] Rehab Progress Note REPORT#:[id number] REPORT STATUS: Signed DATE:07/05/22 TIME: 1037 PATIENT: MESERET MOTTA UNIT #: [id number] ROOM/BED: [place] [id number] : 56 AGE: 67 SEX: F ATTEND: Adonis Gaytan MD ADM AUTHOR: Lisa Vega NP * ALL edits or amendments must be made on the el [employer]/computer document * Subjective Chief complaint: rehab follow-up feeling good denies dizziness or sob No new issues NAD Denies TABARES/N/V/D/CP 14 systems reviewed and neg. except that above. Objective General VS: Vital Signs: Date Time Temp Pulse Resp B/P B/P Pulse O2 O2 F low FiO2 Mean Ox Delivery Rate 07/05 0714 97.5 84 15 128/75 92.7 98 Nasal cannula 07/05 0519 98.2 79 16 120/66 84.3 100 Nasal cannula 07/04 2310 98.1 74 18 123/74 90.5 99 Nasal cannula 07/04 2100 Nasal 4 cannula 07/04 1937 97.9 87 16 124/68 86.6 99 Nasal cannula 07/04 1636 97.9 83 16 112/69 83.5 98 Nasal 3 cannula PATIENT WEIGHT: Weight (lb): 245 Weight (oz): 9.52 Weight (kg): 111.13 Physical Exam General appearance: obese, alert, awake, oriente d Psych: alert, oriented x 3 HEENT: anicteric, mucosal membranes moist Neck: supple, no JVD Cardiovascular: regular rate rhythm, no murmur Respiratory: aerating well, clear bilaterally Abdomen: bowel sounds present, non-distended, so ft, non-tender Skin: BLE and hand multi wounds Ulcer: Type/cause: diabetic, arterial Location: foot (bilateral toes) Musculoskeletal - general: Musculoskeletal - general: swelling (BLE), MMT BUE +3/5 BLE HF -3/5 KE +3/5 Neuro/SURGICAL SPECIALIST: sensory deficit ( decrease BLE), alert, oriented X 3, CNII-XII intact, normal speech Genitourinary: Results Findings/Data: Laboratory Tests: 07/0524 1939 1634 1204 Chemistry POC Glucose (70 - 110 MG/DL) 153 H 165 H 188 H 132 H Diagnosis, Assessment Plan Free Text A P: 67-year-old female with weakness and impaired mo bility 2/2 cardiac myopathy positive for NSTEMI Multivessel CAD, acute on ch ronic diastolic heart failure -End-stage renal disease on hemodialysis -Severe PVD-(s/p MORPHOLOGIST and ath erectomy with CSI followed by MORPHOLOGIST with TAVR balloon on left anterior and posterior tibial artery. CT O of right anterior/posterior tibial artery) -Uremic Neuropathy -Uremic Myopathy -Generalized weakness -Impaired mobility, gait, balance, ADLs, and end urance -Acute hypoxemia resp failure -Acute on chronic diastolic HF -Diabetes type 2 with hyperglycemia -Hypertension -COPD -Multiple wounds on feet and hands Plan: Continue supportive and preventative care Wound care team is following wound care manageme nt Continue PT/OT Out of bed to chair Work on ADLs, strength, bed mobility, transfers, gait DVT prophylaxis on SCD Strict fall and safety precautions Monitor p.o. intake and nutrition Strict decubitus precautions Monitor labs Wound care on outsole caser labs Advance therapies as tolerated. Patient particip ating in therapies Pt. no longer wants IRF. Wan snf in [place]. Discussed with CM. Order for SNF placed. Therapy update: Transfers: SPV Ambulation :RW 100ft MIN PATIENT AGREEABLE TO GAIT TRNG. O2 4 LPM WITH EX ERTION AND ON 3LPM AT REST. SPO2 TOLERANCE WITH MOBILITY AND GAIT. Spent 1:1 Education on : Safety awareness with mobility and gait Energy conservation with mobilization Active range of motion and therapeutic exercises TT:35 mins: time spent reviewing chart, meds, la bs notes and assessing pt and discussing discharge poc to SNF near home. Answe red all quesions Rehab attestation: Face to face exam completed. Treatment plan disc ussed with patient. at 1040 RPT #:[id number] END OF REPORT 2022-07-05 07:53:00-00:00 [id number] [place] [address] PATIENT NAME: MESERET MOTTA ADMIT DATE: 06/22 ACCOUNT NO: [id number] [place] [facility] [place]GE[place] 67 REPORT TYPE: 360 - QUERY RESPONSE DOCUMENT SEX: F ADMITTING PHYSICIAN:Delmy Ashton MD ATTENDING PHYSICIAN:Adonis Gaytan MD Provider Query QUERY TEXT: Clarification Infectious Status POA 360MD Query related questions should be directed to:Sage barrett [facility] Coding Query Helpline Based on your clinical judgment, can you provide the known or suspected condition(s) that represent(s) the clinical indicators listed below and if the condition(s) are present on admission (POA)? The following definitions are provided based on industry literature and in collaboration with [facility] for your reference only: --Localized Infection - An infection that affect s only one organ or body part (e.g., UTI, Pneumonia) --Bacteremia - Nonspecific laboratory finding of bacteria in the blood --Sepsis - A presumed or confirmed systemic resp onse to infectious process with >2 clinical indicators such as: Temperature >38.3C or <36.0C, tachycardia, > 20 respiratory rate, WBC >12,000 or < 4,000 or > 1 0% bands --Severe Sepsis - Sepsis with additional clinica l indicators such as Organ failure with any of th e following: systolic BP < 90 or MAP < 65 or SBP decrease more 40 mm Hg from last recorded SBP considered normal for patient, Creatinine > 2.0, urine output < 0.5 ml /kg/hour for 2 hours, Bilirubin > 2 mg/dL, platelet coun t < 100,000, INR > 1.5, PTT > 60 sec, lactate > 2 m mol/L --Septic Shock - Severe Sepsis with Lactic acid > 4 mmol/L or persistent hypotension The patient's Clinical Indicators include: Acute respiratory failure with hypoxemia-Hospita list H and P 06/21/2022 UTI-Hospitalist progress note 06/23/2022 WBC-12.1-Lab result Temp-97.5-Cardiothorcaic surgery progress note 1 08/23/2021 On antibiotics-Hospitalist progress note 022 Options provided: -- Sepsis, Please specify POA status (i.e., Y=Ye s, N=No, W=Unable to clinically determine) and causative organism if known. -- Severe Sepsis, Please specify POA status (i.e ., Y=Yes, N=No, W=Unable to clinically determine) and cau sative organism if known. -- Severe Sepsis with septic shock, Please speci fy POA status (i.e., Y=Yes, N=No, W=Unable to clinical ly determine) and causative organism if known. -- Localized infection, Please specify the infec tion and POA status (i.e., Y=Yes, N=No, W=Unable to clin ically determine). -- Other - I will add my own diagnosis -- Dismiss - Not applicable / Not valid -- Dismiss - Clinically unable to determine / Un known -- Assign to another provider QUERY RESPONSE: The patient has localized infection. cellulitis of the foot which was POA (Y) Query created by: Fausto Prather on 10:24 PM Electronically Signed by Adonis Gaytan MD on at 0753 PATIENT NAME: MESERET MOTTA [id number] 5007-12-28 06:46[facility]00-00:00 [facility] [facility]) Nephrology Progress Note REPORT#:[id number] REPORT STATUS: Signed DATE:07/05/22 TIME: 06 PATIENT: MESERET MOTTA UNIT #: [id number] ROOM/BED: [place] [id number] : 56 AGE: 67 SEX: F ATTEND: Adonis Gaytan MD ADM AUTHOR: Jennifer Shelton MD * ALL edits or amendments must be made on the Summay/computer document * Subjective Chief complaint: Transferred for CABG HPI: Patient seen and evaluated, discussed with care team, 67-year-old female with history of end-stage renal d isease on chronic hemodialysis Sunday, and Sunday, diabetes mellitus, peripheral arterial disease and hypertension who was transferred to [facility] for CABG. Terrence quevedo initially presented to [facility] in [place] compl aining of shortness of breath. Underwent left heart cath which showed diffuse di sease and patient was transferred for evaluation for CABG. renal consult was requ ested for management of her end-stage renal disease/ hemodialysis. Patient reports: Yes: complaints. Comments: Patient seen and evaluated, HPI no change from i nitial, feels okay Review of Systems Constitutional: Reports: fatigue. Denies: chills, fever. Skin: Denies: abrasion, bruising. Allergy/Immun: Denies: hives, itching. Eyes: Denies: redness, discharge. ENT: Denies: ear drainage, ear ringing. Respiratory: Denies: hemoptysis, SOB. Cardiovascular: Denies: chest pain. Objective General VS/I O: Vital Signs: Date Time Temp Pulse Resp B/P B/P Pulse O2 O2 F low FiO2 Mean Ox Delivery Rate 07/05 0519 36.8 79 16 120/66 84.3 100 Nasal cannula 07/04 2310 36.7 74 18 123/74 90.5 99 Nasal cannula 07/04 2100 Nasal 4 cannula 07/04 1937 36.6 87 16 124/68 86.6 99 Nasal cannula 07/04 1636 36.6 83 16 112/69 83.5 98 Nasal 3 cannula 07/04 0756 36.3 87 21 115/67 99 Nasal 3 cannula 07/04 0750 Nasal 2 cannula 24 hour I O ending at 0700: 07/05 0700 07/04 1900 Intake Total 200 Output Total 3000 Balance 200 -3000 Intake, Oral 200 Output, 3000 Hemodialysis PATIENT WEIGHT: Weight (lb): 245 Weight (oz): 9.52 Weight (kg): 111.13 Medications Active Meds + DC'd Last 24 Hrs Calcium Carbonate (TUMS CHEW TAB) 1,000 MG Q6H P RN PRN PO Vancomycin HCl (VANCOMYCIN HCL) 1,000 MG ONCE O NE IV (DC) Sodium Chloride (SODIUM CHLORIDE 0.9%) 250 ML Sennosides (Senna Lax 8.6 MG TABLET) 8.6 MG BID PO Polyethylene Glycol (MIRALAX) 17 GM DAILY PO Magnesium Hydroxide (MILK OF MAGNESIA) 30 ML BID PRN PRN PO Epoetin Vanesa-epbx (RETACRIT) 6,000 UNIT TuThSa@2 100 SUBQ Mupirocin (BACTROBAN 2% 22 GM OINTMENT) 1 APPLIC BID NASAL Miscellaneous Information (VANCOMYCIN PHARMACY T O DOSE) 1 EACH ASDIR IV (CKD) Lactulose (LACTULOSE) 20 GM DAILY PRN PRN PO Docusate Sodium (COLACE) 100 MG BID PO Sodium Chloride (OCEAN) 1 SPRAY Q2H PRN PRN NASA L Albuterol/Ipratropium (DUONEB) 3 ML RTQ4H PRN DC N NEB Ticagrelor (BRILINTA) 90 MG Q12HR PO Atropine Sulfate (ATROPINE SULFATE 0.1MG/ML SYR) 0.5 MG ASDIR PRN IV Sodium Chloride (SODIUM CHLORIDE 0.9%) 500 ML DIR PRN IV Sevelamer Carbonate (RENVELA) 3,200 MG C MEALS P O Calcitriol (RocaltroL) 0.5 MCG DAILY PO Midodrine (PROAMATINE) 5 MG 0900,1300,1700 PO Levothyroxine Sodium (LEVOTHYROXINE SODIUM) 150 MCG DAILY 0600 PO Buspirone HCl (BUSPAR) 5 MG BID PO Metoprolol Tartrate (LOPRESSOR) 12.5 MG Q12HR PO Pantoprazole (PROTONIX) 40 MG 0600,1800 PO Midodrine (PROAMATINE) 10 MG DIALYSIS-DOSE BEFOR E PO (CKD) Albumin Human (ALBUMINAR-25%) 12.5 GM ASDIR PRN IV Heparin Sodium (Porcine) (HEPARIN SODIUM) 3,000 UNIT ASDIR PRN DIALYSIS Lidocaine HCl (LIDOCAINE HCL/PF) 0.5 ML ASDIR DC N I-DERMAL (CKD) Mannitol (MANNITOL 25% 12.5GM/50ML) 12.5 GM ASDI R PRN IV Sodium Chloride (SODIUM CHLORIDE 0.9%) 2,000 ML ASDIR PRN IV Sodium Chloride (SODIUM CHLORIDE) 5 ML ASDIR PRN IV Sodium Chloride (SODIUM CHLORIDE) 10 ML ASDIR DC N IV Sodium Chloride (SODIUM CHLORIDE 0.9%) 250 ML DIR PRN IV Aspirin (ASPIRIN) 81 MG C BK PO Atorvastatin Calcium (LIPITOR) 40 MG 2100 PO Insulin Human Lispro (HUMALOG) 0 AC HS SUBQ Dextrose/Water (DEXTROSE 10% IN WATER) 125 ML DIR PRN IV (CKD) Dextrose/Water (DEXTROSE 10% IN WATER) 250 ML DIR PRN IV (CKD) Glucagon (GLUCAGON) 1 MG ASDIR PRN IM Melatonin (Melatonin) 3 MG BEDTIME PRN PRN PO Acetaminophen (TYLENOL) 650 MG Q4H PRN PRN PO Heparin Sodium (HEPARIN 5000 UNITS/ML) 5,000 UNI T ASDIR PRN IV Nitroglycerin (NITROSTAT) 0.4 MG Q5M PRN PRN SL Ondansetron HCl (ZOFRAN) 4 MG Q6H PRN PRN IV Physical Exam General appearance: alert, no acute distress Head/eyes: atraumatic, normocephalic ENT: normal nose Neck: non-tender, supple/no meningismus Cardiovascular: normal heart sounds, no rub Respiratory: aerating well, symmetric expansion Abdomen: non-tender, soft Genitourinary: no flank pain Extremities: pitting edema, non-tender Musculoskeletal: no CVA tenderness, no tendernes s Neuro/SURGICAL SPECIALIST: alert, normal speech Skin: dry, intact Ulcer: Type/cause: diabetic, arterial Location: foot (bilateral toes) Results Findings/Data: Laboratory Tests 07/05 07/04 07/04 07/04 07/04 0524 1939 1634 1204 1010 Chemistry POC Glucose (70 - 110 MG/DL) 153 H 165 H 188 H 132 H 131 H 07/04 07/04 07/03 07/03 07/03 0545 0540 1913 1546 1050 Chemistry Sodium (134 - 147 mEq/L) 140 Potassium (3.4 - 5.0 mEq/L) 4.2 Chloride (100 - 108 mEq/L) 100 Carbon Dioxide (21 - 33 mEq/l) 28 Anion Gap (0 - 20) 17 BUN (7 - 18 mg/dL) 35 H Creatinine (0.6 - 1.3 mg/dL) 5.1 H Glomerular Filtr Rate (80 - 90) 8.8 L Glucose (70 - 110 mg/dL) 179 H POC Glucose (70 - 110 MG/DL) 173 H 167 H 131 H 202 H Calcium (8.0 - 10.5 mg/dL) 10.1 Phosphorus (2.5 - 4.9 MG/DL) 3.4 Magnesium (1.80 - 2.40 mg/dL) 2.31 07/03 07/03 07/02 07/02 07/02 0540 0528 1902 1642 1123 Chemistry Sodium (134 - 147 mEq/L) 142 Potassium (3.4 - 5.0 mEq/L) 4.0 Chloride (100 - 108 mEq/L) 103 Carbon Dioxide (21 - 33 mEq/l) 26 Anion Gap (0 - 20) 17 BUN (7 - 18 mg/dL) 24 H Creatinine (0.6 - 1.3 mg/dL) 4.5 H Glomerular Filtr Rate (80 - 90) 10.2 L Glucose (70 - 110 mg/dL) 177 H POC Glucose (70 - 110 MG/DL) 170 H 154 H 134 H 156 H Calcium (8.0 - 10.5 mg/dL) 9.2 07/02 0737 Chemistry POC Glucose (70 - 110 MG/DL) 222 H Laboratory Tests 07/04 07/03 0540 0540 Hematology WBC (4.5 - 11.0 x10 3/uL) 7.8 8.8 RBC (3.54 - 5.02 x10 6/uL) 3.00 L 2.88 L Hgb (11.0 - 15.0 g/dL) 9.0 L 8.7 L Hct (33.0 - 45.0 %) 30.4 L 29.1 L MCV (81.0 - 99.0 fL) 101.3 H 101.0 H MCH (27.0 - 33.0 pg) 30.0 30.2 MCHC (33.0 - 37.0 g/dL) 29.6 L 29.9 L RDW (11.5 - 14.5 %) 15.0 H 14.9 H Plt Count (150 - 400 x10 3/uL) 190 203 MPV (7.0 - 9.0 fL) 9.5 H 9.5 H Neut % (Auto) (56.0 - 77.0 %) 75.9 82.1 H Lymph % (Auto) (14.0 - 32.0 %) 9.6 L 6.2 L Kerr % (Auto) (4.8 - 9.0 %) 9.8 H 8.5 Eos % (Auto) (0.3 - 3.7 %) 4.2 H 2.9 Baso % (Auto) (0.0 - 2.0 %) 0.1 0.1 Neut # (Auto) (2.0 - 7.6 x10 3/uL) 5.91 7.24 Lymph # (Auto) (1.0 - 3.8 x10 3/uL) 0.75 L 0.5 5 L Kerr # (Auto) (0.1 - 0.8 x10 3/uL) 0.76 0.75 Eos # (Auto) (0.0 - 0.2 x10 3/uL) 0.33 H 0.26 H Baso # (Auto) (0.0 - 0.2 x10 3/uL) 0.01 0.01 Abs Immat Gran (auto) (0.00 - 0.03 x10 3/uL) 0. 03 0.02 Add Manual Diff NO NO Immature Gran % (0.0 - 2.0 %) 0.4 0.2 Nucleated RBC % (0 - 0 %) 0.0 0.0 Nucleated RBCs # (Man) (0.0 - 0.1 x10 3/uL) 0.0 0 0.00 Laboratory Tests 07/04 0540 Toxicology Random Vancomycin (mcg/mL) 19.9 Recent Impressions: NUCLEAR MEDICINE - NM BONE 3 PHASE 07/04 0700 Report Impression - Status: SIGNED Entered: 07/04/2022 1850 IMPRESSION: 1. No evidence of cellulitis or osteomyelitis. 2. Active osseous abnormality in the inferior an d posterior calcaneus bilaterally likely representing degene rative change as noted on the left foot plain radiographs. Impression By: [email or web address] - Tiffany Caban Laboratory Tests 07/05 07/04 07/04 07/04 07/04 0524 1939 1634 1204 1010 Chemistry POC Glucose (70 - 110 MG/DL) 153 H 165 H 188 H 132 H 131 H Diagnosis, Assessment Plan Free Text A P: Patient seen and evaluated, discussed with care team, images and laboratories reviewed. End-stage renal disease on c hronic hemodialysis, Sunday, and Sunday, plan for hemodialysis today Status post left heart cath with multi-vessel co ronary artery disease, respiratory evaluation for CABG. Hypertension: Monitor blood pressure closely and adjust medications as needed Hyperlipidemia: Lipitor Diabetes mellitus: Insulin: Monitor blood sugar closely adjust medications as needed Anemia: We will start Epogen 4000 subcu 3 times a week Elevated alkaline phosphatase we will check PTH. 06/23/2022 plan for filtration today if her bloo d pressure allows, had hemodialysis yesterday. See showed hemoglobin 9. 1, platelet 136, blood count 12.1. We will increase Epoge n to 6000 subcu 3 times a week, PTH 660 we will add Rocaltrol 0.5 mcg p.o. daily, will add midodrine 5 mg p.o. 3 times daily to allow for ultrafiltration. 06/24/2022 laboratory for th is morning showed sodium 136, potassium 4.9, CO2 23, BUN 50, creatinine 5.8, phos phorus 7.1 we will add Renvela 2 p.o. with each meal , hemoglobin 9.3, platelet 152, blood count 13.3 , for hemodialysis today, 4 hours, 2K, ultrafiltration 3 to 4 L if tolerated , seen during HD. 06/25/2022 laboratory this m bartolo showed sodium 137, potassium 4.3, CO2 25, BUN 31, creatinine 4.5, alkaline phosphatase 272, st atus post ultrafiltration yesterday, 3.9 L removed, plan for dialysis in t he morning. 06/26/2022 laboratory this tiffany mcfarland showed sodium 137, potassium 4.4, CO2 22, BUN 39, creatinine 5.4, hemoglob in 9.8, platelet 145, blood count 14, phosphorus 6.8 we will increase Renvela to 4 p.o. with each meal, plan for hemodialysis today, 4 hours, 3K, ultrafiltration 3 to 4 L if tolerat ed 06/27/2022 status post peripheral angiogram/inte rvention yesterday, only had less than 2 hours of dialysis yesterday due to hypotension postprocedure, will plan on hemodialysis today, 4 hours, 3K, ultrafiltration 3 to 4 L if tolerated 06/28/2022 status post hemodialysis yesterday, w ill plan for ultrafiltration today 3 to 4 L if tolerated. Laboratory this manav barba showed sodium 136, potassium 4.2, CO2 22, BUN 22, creatinine 3.9, h emoglobin 8.9, platelet 149, blood count 10.8 06/29/2022 status post ultrafiltration yesterday 4 L removed, plan for hemodialysis today, 4 hours, 3K, ultrafiltration 3 to 4 L if tolerated. 06/30/2022 laboratory this tiffany mcfarland showed sodium 138, potassium 4.2, CO2 24, BUN 22, creatinine 4.1, hemoglobin 9.2, plat elet 195, white blood count 12, status post hemodialysis yesterday, 3 L removed. 07.01.22: Pt feels better. For HD today. will us e K2 [place]. I was then notified her RN that the pt has code blue in the radiology depertment. she is now alert and awake. will continue dialysis without any ch anges in the original order. 07.02.22: pt had code blue yesterday. Did not lo ose pulse. she thinks it was panic attack. had dialysis yesterday with net ne gative fo 3L. Feels better today. BP has been stable and So2 is 100%. will resume TTS schedule. Electrolyts and BMD are all well controlled. 07/03/2022 laboratory this morning showe d sodium 142, potassium 4, CO2 26, BUN 24, creatinine 4.5, hemoglobin 8.7, platelet 203 , blood count 8.8, plan for dialysis in the morning. 07/04/2022 for hemodialysis today, 4 hours, 3K, ultrafiltration 3 to 4 L if tolerated, seen during HD 07/05/2022 status post hemodialysis yesterday, p redialysis labs reviewed and acceptable, plan for dialysis in the morning, wi ll check predialysis labs. Consultants: cardiology, cardiovascular surgery, nephrology, wound care Electronically Signed by Jennifer Shelton MD on at 0945 RPT #:[id number] END OF REPORT 2022-07-04 14:52:00-00:00 [facility]L [facility] ([facility] Hospitalist Progress Note REPORT#:[id number] REPORT STATUS: Signed DATE:07/04/22 TIME: 1451 PATIENT: MESERET MOTTA UNIT #: [id number] ROOM/BED: [place] [id number] : 56 AGE: 67 SEX: F ATTEND: Adonis Gaytan MD ADM AUTHOR: Adonis Gaytan MD * ALL edits or amendments must be made on the Summay/computer document * Subjective Chief complaint: no cp. no sob. feels fine. had good rest last ni ght. Objective General VS/I O: Vital Signs: Date Time Temp Pulse Resp B/P B/P Pulse O2 O2 F low FiO2 Mean Ox Delivery Rate 07/04 0756 97.3 87 21 115/67 99 Nasal 3 cannula 07/04 0750 Nasal 2 cannula 07/04 0339 97.5 82 17 162/81 108.2 98 07/03 2319 98.2 81 16 122/75 90.5 98 07/03 2000 Nasal 2 cannula 07/03 1914 98.2 83 15 125/70 88.4 97 07/03 1548 98.1 80 18 127/73 91.1 99 24 hour I O ending at 0700: 07/04 0700 07/03 1900 Intake Total 310.00 Output Total 0 Balance 310.00 Intake, IV 10.00 Intake, Oral 300 Number 0 Bowel Movements Number Voids 2 Output, Stool 0 PATIENT WEIGHT: Weight (lb): 245 Weight (oz): 9.52 Weight (kg): 111.13 Physical Exam General appearance: alert, awake, oriented Head/Eyes: atraumatic, clear cornea, EOMI, kristopher l conjunctiva/sclera, PERRLA ENT: moist mucosal membranes Neck: supple/no meningismus, no JVD Cardiovascular: normal heart sounds, regular rat e rhythm, no murmur Respiratory: aerating well, clear to auscultatio n, symmetric expansion Abdomen: non-tender, normal bowel sounds, soft, no distention Extremities: edema, moves all Neuro/SURGICAL SPECIALIST: alert, oriented X 3, normal speech, n o motor deficits Ulcer: Type/cause: diabetic, arterial Location: foot (bilateral toes) Psychiatry: normal affect Results Radiology data: Laboratory Tests 07/04/22 0540: [Embedded Image Not Available] 07/03/22 0540: [Embedded Image Not Available] Current Medications Sig/Enedina Start time Last Medication Dose Route Stop Time Status Admin Vancomycin HCl 1,000 MG ONCE ONE 07/04 1500 AC 1 09/04 Sodium Chloride 250 ML IV 07/04 1559 1425 Sennosides 8.6 MG BID 07/03 2100 AC 07/04 PO 08/02 2059 1427 Polyethylene Glycol 17 GM DAILY 07/03 1115 AC PO 08/02 1114 1425 Magnesium Hydroxide 30 ML BID PRN PRN 07/02 1345 AC 07/02 PO 08/01 1344 1448 Epoetin Vanesa-epbx 6,000 UNIT TuThSa@2100 07/01 2 300 AC 07/02 SUBQ 07/31 2259 0052 Mupirocin 1 APPLIC BID 07/01 2100 AC 07/04 NASAL 07/06 0901 1427 Miscellaneous 1 EACH ASDIR 06/30 1300 CKD Information IV 07/30 1259 Lactulose 20 GM DAILY PRN PRN 06/30 1045 AC 06/09 6 PO 07/30 1044 0125 Docusate Sodium 100 MG BID 06/30 0900 AC 07/04 PO 07/30 0859 1426 Sodium Chloride 1 SPRAY Q2H PRN PRN 06/29 1015 AC 06/29 NASAL 07/29 1014 1724 Albuterol/Ipratropiu 3 ML RTQ4H PRN PRN 06/28 12 15 AC m NEB 07/28 1214 Ticagrelor 90 MG Q12HR 06/28 1115 AC 07/04 PO 07/28 1114 1427 Atropine Sulfate 0.5 MG ASDIR PRN 06/27 1600 AC IV 07/27 1559 Sodium Chloride 500 ML ASDIR PRN 06/27 1600 AC IV 07/27 1559 Sevelamer Carbonate 3,200 MG C MEALS 06/26 0800 AC 07/04 PO 07/26 0759 1425 Calcitriol 0.5 MCG DAILY 06/23 0900 AC 07/04 PO 07/23 0859 1426 Midodrine 5 MG 0900,1300,1700 06/23 09 AC 06/09 7 PO 07/23 0859 1426 Levothyroxine Sodium 150 MCG DAILY 0600 06/23 06 00 AC 07/04 PO 07/23 0559 0607 Buspirone HCl 5 MG BID 06/22 2100 AC 07/04 PO 07/22 2058 142 Metoprolol Tartrate 12.5 MG Q12HR 06/22 2100 AC 07/03 PO 07/22 2058 195 Pantoprazole 40 MG 0600,1800 06/22 1800 AC 07/04 PO 07/22 1759 0607 Midodrine 10 MG DIALYSIS-DOSE 06/22 1545 CKD BEFORE PO 07/22 1544 1856 Albumin Human 12.5 GM ASDIR PRN 06/22 1530 AC 1 08/28 IV 07/23 1529 1909 Heparin Sodium 3,000 UNIT ASDIR PRN 06/22 1530 A C 07/04 (Porcine) DIALYSIS 07/22 1529 0805 Lidocaine HCl 0.5 ML ASDIR PRN 06/22 1530 CKD I-DERMAL 07/23 1529 Mannitol 12.5 GM ASDIR PRN 06/22 1530 AC IV 07/23 1529 Sodium Chloride 2,000 ML ASDIR PRN 06/22 1530 AC 07/04 IV 07/23 1529 0804 Sodium Chloride 5 ML ASDIR PRN 06/22 1530 AC IV 07/22 1529 Sodium Chloride 10 ML ASDIR PRN 06/22 1530 AC IV 07/22 1529 0806 Sodium Chloride 250 ML ASDIR PRN 06/22 1530 AC IV 07/22 1529 Aspirin 81 MG C BK 06/22 0800 AC 07/04 PO 07/22 0759 1426 Atorvastatin Calcium 40 MG 2100 06/21 2100 AC 09/03 PO 07/21 Insulin Human Lispro 0 AC HS 06/21 2100 AC 07/03 SUBQ 07/21 Dextrose/Water 125 ML ASDIR PRN 06/21 1900 CKD IV 07/21 1858 Dextrose/Water 250 ML ASDIR PRN 06/21 190 CKD IV 07/21 1858 Glucagon 1 MG ASDIR PRN 06/21 1900 AC IM 07/21 185 Melatonin 3 MG BEDTIME PRN PRN 06/21 190 AC PO 07/21 Acetaminophen 650 MG Q4H PRN PRN 06/21 173 AC 1 09/04 PO 07/21 172 0931 Heparin Sodium 5,000 UNIT ASDIR PRN 06/21 173 A C 06/22 IV 07/21 172 1449 Nitroglycerin 0.4 MG Q5M PRN PRN 06/21 173 AC SL 07/21 172 Ondansetron HCl 4 MG Q6H PRN PRN 06/21 173 AC 09/02 IV 07/21 Laboratory Tests: 07/04 07/04 07/04 07/04 07/03 1204 1010 0545 0540 1913 Chemistry Sodium (134 - 147 mEq/L) 140 Potassium (3.4 - 5.0 mEq/L) 4.2 Chloride (100 - 108 mEq/L) 100 Carbon Dioxide (21 - 33 mEq/l) 28 Anion Gap (0 - 20) 17 BUN (7 - 18 mg/dL) 35 H Creatinine (0.6 - 1.3 mg/dL) 5.1 H Glomerular Filtr Rate (80 - 90) 8.8 L Glucose (70 - 110 mg/dL) 179 H POC Glucose (70 - 110 MG/DL) 132 H 131 H 173 H 167 H Calcium (8.0 - 10.5 mg/dL) 10.1 Phosphorus (2.5 - 4.9 MG/DL) 3.4 Magnesium (1.80 - 2.40 mg/dL) 2.31 Hematology WBC (4.5 - 11.0 x10 3/uL) 7.8 RBC (3.54 - 5.02 x10 6/uL) 3.00 L Hgb (11.0 - 15.0 g/dL) 9.0 L Hct (33.0 - 45.0 %) 30.4 L MCV (81.0 - 99.0 fL) 101.3 H MCH (27.0 - 33.0 pg) 30.0 MCHC (33.0 - 37.0 g/dL) 29.6 L RDW (11.5 - 14.5 %) 15.0 H Plt Count (150 - 400 x10 3/uL) 190 MPV (7.0 - 9.0 fL) 9.5 H Neut % (Auto) (56.0 - 77.0 %) 75.9 Lymph % (Auto) (14.0 - 32.0 %) 9.6 L Kerr % (Auto) (4.8 - 9.0 %) 9.8 H Eos % (Auto) (0.3 - 3.7 %) 4.2 H Baso % (Auto) (0.0 - 2.0 %) 0.1 Neut # (Auto) (2.0 - 7.6 x10 3/uL) 5.91 Lymph # (Auto) (1.0 - 3.8 x10 3/uL) 0.75 L Kerr # (Auto) (0.1 - 0.8 x10 3/uL) 0.76 Eos # (Auto) (0.0 - 0.2 x10 3/uL) 0.33 H Baso # (Auto) (0.0 - 0.2 x10 3/uL) 0.01 Abs Immat Gran (auto) (0.00 - 0.03 0.03 x10 3/uL) Add Manual Diff NO Immature Gran % (0.0 - 2.0 %) 0.4 Nucleated RBC % (0 - 0 %) 0.0 Nucleated RBCs # (Man) (0.0 - 0.1 0.00 x10 3/uL) Toxicology Random Vancomycin (mcg/mL) 19.9 07/03 1546 Chemistry POC Glucose (70 - 110 MG/DL) 131 H Diagnosis, Assessment Plan Consultants: cardiology, cardiovascular surgery, nephrology, wound care Free Text DxA P Notes Free text DxA P notes: Assessment and plans: Three-vessel coronary artery disease CV surgery following. Dopplers, alexandro duplex were ordered patient is off the heparin drip on aspirin, Brilinta, atorvastatin, metoprolol -echo from OSH LVEF 50% cardiology seen -S/p PCI to left circumflex 06/27 Patient needs staged PCI to mid and proximal LAD in 1 to 2 weeks as outpatient Constipation -miralex. vaginal bleeding- fibroids 07/01 - bleeding for 2 weeks and had no vaginal bleeding for 15 years...ask director [employer] to see and check pelvic ultrasound. 07/02 - usg shows fibroids and director [employer] wants outpt f /u for endometrial bx. Severe PAD/toe ulcer: Status post MORPHOLOGIST and atherec cheri with CSI followed by MORPHOLOGIST with stable balloon on left anterior and posterior tibial artery, for r ight anterior and posterior tibial artery Will need staged intervention as p er cardiology. 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 Plan for peripheral angiogram in the morning as per c ardiology 06/29 Acute respiratory failure with hypoxemia Patient presented with supplemental nasal cannu la oxygen -Pulmonary edema, pleural effusion on CT chest, no PE Patient needs to be evaluated for home oxygen o nce patient is medically cleared for discharge On 2 L oxygen via nasal cannula 06/29 DuoNeb treatment Pulmonary consulted -Continue to optimize heart failure management, blood pressure control and Outpatient sleep study Leukocytosis: -CT chest result done -Afebrile -Patient has multiple ulcers in hands and feet. Wound cx growing ent fecalis, rocephin switched to unasyn 07/04 -blood culture 06/26 (was not ordered on admissi on) no growth till now 06/30- WBC increasing on unasyn. consult ID. ran prieto? 07/04- bone scan ordered for her toes. results p ending. 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 Pat ient lives alone. 06/28 Elevated LFTs Secondary to hepatic congestion Monitor LFTs Type 2 diabetes mellitus on insulin sliding scale Diabetic diet Hypothyroidism Resume Synthroid Anemia of chronic disease -Transfuse for Hb <7 -No bleeding hypotension on midodrine on empiric IV CTX check labs in am SCD for DVT prophylaxis. Disposition: S/p PCI and 1 stent placement in le ft circumflex, plan for peripheral angiogram to right anterior and poste rior tibial artery. On 2 L oxygen via nasal cannula. On Unasyn. Patient ricki es alone. Case management consulted for inpatient rehab. [facility]. 06/30- WBC worsening. ID consulted. awaiting tra nsfer to rehab. 07/01- WBC better. ABX changed from unas yn to VANC. pt c/o DUB. 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 07/02- Possible panic attack yesterday...to CCU..transfer back to telemetry. d/w bedside nurse. 07/03 - miralex for constipation. 07/04- Bone scan ordered for the toes. d /w case aide and plan is for SNF at [place]. awaiting insurance approval. Quality: Gen Med Crit Care VTE Prophylaxis VTE prophylaxis initiated: yes Current Medications Current medication review: I attest that the foregoing medication list in t medical record is true, accurate, and complete to the best of my knowled ge. Electronically Signed by Adonis Gaytan MD on 06/09 01/27 at 1454 RPT #:[id number] END OF REPORT 2022-07-04 13:52:00-00:00 [facility]) Cardiology Progress Note REPORT#:[id number] REPORT STATUS: Signed DATE:07/04/22 TIME: 1352 PATIENT: MESERET MOTTA UNIT #: [id number] ROOM/BED: [place] [id number] : 56 AGE: 67 SEX: F ATTEND: Adonis Gaytan MD ADM AUTHOR: Kristina Shah [employer] * ALL edits or amendments must be made on the Summay/computer document * Subjective Patient reports: No: complaints. Objective General VS/I O: 24 hour I O ending at 0700: 07/04 0700 07/03 1900 Intake Total 310.00 Output Total 0 Balance 310.00 Intake, IV 10.00 Intake, Oral 300 Number 0 Bowel Movements Number Voids 2 Output, Stool 0 Vital Signs: Date Time Temp Pulse Resp B/P B/P Pulse O2 O2 F low FiO2 Mean Ox Delivery Rate 07/046 36.3 87 21 115/67 99 Nasal 3 cannula 07/04 0750 Nasal 2 cannula 07/049 36.4 82 17 162/81 108.2 98 07/03 2319 36.8 81 16 122/75 90.5 98 07/03 2000 Nasal 2 cannula 07/03 1914 36.8 83 15 125/70 88.4 97 07/03 1548 36.7 80 18 127/73 91.1 99 PATIENT WEIGHT: Weight (lb): 245 Weight (oz): 9.52 Weight (kg): 111.13 Medications: Active Meds + DC'd Last 24 Hrs Vancomycin HCl (VANCOMYCIN HCL) 1,000 MG ONCE ON E IV Sodium Chloride (SODIUM CHLORIDE 0.9%) 250 ML Sennosides (Senna Lax 8.6 MG TABLET) 8.6 MG BID PO Polyethylene Glycol (MIRALAX) 17 GM DAILY PO Magnesium Hydroxide (MILK OF MAGNESIA) 30 ML BID PRN PRN PO Epoetin Vanesa-epbx (RETACRIT) 6,000 UNIT TuThSa@2 100 SUBQ Mupirocin (BACTROBAN 2% 22 GM OINTMENT) 1 APPLIC BID NASAL Miscellaneous Information (VANCOMYCIN PHARMACY T O DOSE) 1 EACH ASDIR IV (CKD) Lactulose (LACTULOSE) 20 GM DAILY PRN PRN PO Docusate Sodium (COLACE) 100 MG BID PO Sodium Chloride (OCEAN) 1 SPRAY Q2H PRN PRN DANIEL AL Albuterol/Ipratropium (DUONEB) 3 ML RTQ4H PRN DC N NEB Ticagrelor (BRILINTA) 90 MG Q12HR PO Atropine Sulfate (ATROPINE SULFATE 0.1MG/ML SYR) 0.5 MG ASDIR PRN IV Sodium Chloride (SODIUM CHLORIDE 0.9%) 500 ML DIR PRN IV Sevelamer Carbonate (RENVELA) 3,200 MG C MEALS P O Calcitriol (RocaltroL) 0.5 MCG DAILY PO Midodrine (PROAMATINE) 5 MG 0900,1300,1700 PO Levothyroxine Sodium (LEVOTHYROXINE SODIUM) 150 MCG DAILY 0600 PO Buspirone HCl (BUSPAR) 5 MG BID PO Metoprolol Tartrate (LOPRESSOR) 12.5 MG Q12HR PO Pantoprazole (PROTONIX) 40 MG 0600,1800 PO Midodrine (PROAMATINE) 10 MG DIALYSIS-DOSE BEFOR E PO (CKD) Albumin Human (ALBUMINAR-25%) 12.5 GM ASDIR PRN IV Heparin Sodium (Porcine) (HEPARIN SODIUM) 3,000 UNIT ASDIR PRN DIALYSIS Lidocaine HCl (LIDOCAINE HCL/PF) 0.5 ML ASDIR DC N I-DERMAL (CKD) Mannitol (MANNITOL 25% 12.5GM/50ML) 12.5 GM ASDI R PRN IV Sodium Chloride (SODIUM CHLORIDE 0.9%) 2,000 ML ASDIR PRN IV Sodium Chloride (SODIUM CHLORIDE) 5 ML ASDIR PRN IV Sodium Chloride (SODIUM CHLORIDE) 10 ML ASDIR DC N IV Sodium Chloride (SODIUM CHLORIDE 0.9%) 250 ML DIR PRN IV Aspirin (ASPIRIN) 81 MG C BK PO Atorvastatin Calcium (LIPITOR) 40 MG 2100 PO Insulin Human Lispro (HUMALOG) 0 AC HS SUBQ Dextrose/Water (DEXTROSE 10% IN WATER) 125 ML DIR PRN IV (CKD) Dextrose/Water (DEXTROSE 10% IN WATER) 250 ML DIR PRN IV (CKD) Glucagon (GLUCAGON) 1 MG ASDIR PRN IM Melatonin (Melatonin) 3 MG BEDTIME PRN PRN PO Acetaminophen (TYLENOL) 650 MG Q4H PRN PRN PO Heparin Sodium (HEPARIN 5000 UNITS/ML) 5,000 UNI T ASDIR PRN IV Nitroglycerin (NITROSTAT) 0.4 MG Q5M PRN PRN SL Ondansetron HCl (ZOFRAN) 4 MG Q6H PRN PRN IV Physical Exam General appearance: alert, awake, oriented, no a cute distress, pleasant, conversational Neck: non-tender, no JVD Cardiovascular: CV assessment: regular rate and rhythm Respiratory: decreased breath sounds, on oxygen, no distress Abdomen: non-tender, obese Genitourinary: no flank pain, no urinary cathete r Lower extremity: LE assessment: edema Musculoskeletal: normal inspection Neuro/SURGICAL SPECIALIST: alert, oriented X 3, normal speech Skin: scabs lower extremities Ulcer: Type/cause: diabetic, arterial Location: foot (bilateral toes) Psychiatry: normal affect, normal mood Results Findings/Data: Laboratory Tests 07/04 07/04 07/04 07/04 07/03 1204 1010 0545 0540 1913 Chemistry Sodium (134 - 147 mEq/L) 140 Potassium (3.4 - 5.0 mEq/L) 4.2 Chloride (100 - 108 mEq/L) 100 Carbon Dioxide (21 - 33 mEq/l) 28 Anion Gap (0 - 20) 17 BUN (7 - 18 mg/dL) 35 H Creatinine (0.6 - 1.3 mg/dL) 5.1 H Glomerular Filtr Rate (80 - 90) 8.8 L Glucose (70 - 110 mg/dL) 179 H POC Glucose (70 - 110 MG/DL) 132 H 131 H 173 H 167 H Calcium (8.0 - 10.5 mg/dL) 10.1 Phosphorus (2.5 - 4.9 MG/DL) 3.4 Magnesium (1.80 - 2.40 mg/dL) 2.31 07/03 1546 Chemistry POC Glucose (70 - 110 MG/DL) 131 H Laboratory Tests 07/04 0540 Hematology WBC (4.5 - 11.0 x10 3/uL) 7.8 RBC (3.54 - 5.02 x10 6/uL) 3.00 L Hgb (11.0 - 15.0 g/dL) 9.0 L Hct (33.0 - 45.0 %) 30.4 L MCV (81.0 - 99.0 fL) 101.3 H MCH (27.0 - 33.0 pg) 30.0 MCHC (33.0 - 37.0 g/dL) 29.6 L RDW (11.5 - 14.5 %) 15.0 H Plt Count (150 - 400 x10 3/uL) 190 MPV (7.0 - 9.0 fL) 9.5 H Neut % (Auto) (56.0 - 77.0 %) 75.9 Lymph % (Auto) (14.0 - 32.0 %) 9.6 L Kerr % (Auto) (4.8 - 9.0 %) 9.8 H Eos % (Auto) (0.3 - 3.7 %) 4.2 H Baso % (Auto) (0.0 - 2.0 %) 0.1 Neut # (Auto) (2.0 - 7.6 x10 3/uL) 5.91 Lymph # (Auto) (1.0 - 3.8 x10 3/uL) 0.75 L Kerr # (Auto) (0.1 - 0.8 x10 3/uL) 0.76 Eos # (Auto) (0.0 - 0.2 x10 3/uL) 0.33 H Baso # (Auto) (0.0 - 0.2 x10 3/uL) 0.01 Abs Immat Gran (auto) (0.00 - 0.03 x10 3/uL) 0. 03 Add Manual Diff NO Immature Gran % (0.0 - 2.0 %) 0.4 Nucleated RBC % (0 - 0 %) 0.0 Nucleated RBCs # (Man) (0.0 - 0.1 x10 3/uL) 0.0 0 Laboratory Tests 07/04 0540 Toxicology Random Vancomycin (mcg/mL) 19.9 Laboratory Tests 07/04 0540 Chemistry Magnesium (1.80 - 2.40 mg/dL) 2.31 Results: labs reviewed, vital signs reviewed, rh [facility] personally rev'd Telemetry Interpretation: sinus rhythm Diagnosis, Assessment Plan Plan discussed with: patient, nurse Free Text DxA P Notes Free Text DxA P Notes: 67 YO female with PMHx of HTN, DM, CHF, ESRD on HD who initially presented at [facility] with SOB and fatigue. Sh regan was treated for NSTEMI and acute CHF exacerbation. 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 She is transferred her for CABG evaluation but deemed too high risk for CABG with STS risk score of 17%. 1. NSTEMI/Multivessel CAD 06/27/22: s/p PCI to LCx wit h 2.25 x 20 mm and post dilated with 2.5 NC balloon continue ASA, Brilinta, BB, and statin need staged PCI to mid and proximal LAD in 1-2 w eeks stable 2. Acute on chronic Diastolic CHF volume management per nephrology echo from OSH LVEF 50% 3. ESRD on HD per nephrology 4. Diabetes mellitus per admitting team 5. Hypertension -> orthostatic hypotension on midodrine continue low-dose beta-susan for CAD 6. Toe ulcers/severe PAD 06/26/21: s/p peripheral angiogram and MORPHOLOGIST to th e anterior tibial artery ORE ROASTER of right anterior/posterior tibial artery, n eed staged intervention on a later date 7. Debility PT/OT- Rehab eval ongoing Ok to DC to rehab from cardiology standpoint. at 1603 Electronically Signed by Herson Tang MD on at 6142 RPT #:[id number] END OF REPORT 2022-07-04 12:32:00-00:00 [facility] ([facility]) Pulmonology Progress Note REPORT#:[id number] REPORT STATUS: Signed DATE:07/04/22 TIME: 1232 PATIENT: MESERET MOTTA UNIT #: [id number] ROOM/BED: [place] [id number] : 56 AGE: 67 SEX: F ATTEND: Adonis Gaytan MD ADM AUTHOR: Ana Bobo * ALL edits or amendments must be made on the [employer] document * Subjective Comments: Doing well, no new complaints ROS All systems rev neg: except as marked Objective General VS/I O: Last Documented: Result Date Time Pulse Ox 99 07/04 0756 B/P 115/67 07/04 0756 O2 Delivery Nasal cannula 07/04 0756 O2 Flow Rate 3 07/04 0756 Temp 36.3 07/04 0756 Pulse 87 07/04 0756 Resp 21 07/04 0756 B/P Mean 108.2 07/04 0339 FiO2 21 06/28 2342 24 hour I O ending at 0700: 07/04 0700 07/03 1900 Intake Total 310.00 Output Total 0 Balance 310.00 Intake, IV 10.00 Intake, Oral 300 Number 0 Bowel Movements Number Voids 2 Output, Stool 0 PATIENT WEIGHT: Weight (lb): 245 Weight (oz): 9.52 Weight (kg): 111.13 Medications: Active Meds + DC'd Last 24 Hrs Vancomycin HCl (VANCOMYCIN HCL) 1,000 MG ONCE ON E IV Sodium Chloride (SODIUM CHLORIDE 0.9%) 250 ML Sennosides (Senna Lax 8.6 MG TABLET) 8.6 MG BID PO Polyethylene Glycol (MIRALAX) 17 GM DAILY PO Magnesium Hydroxide (MILK OF MAGNESIA) 30 ML BID PRN PRN PO Epoetin Vanesa-epbx (RETACRIT) 6,000 UNIT TuThSa@2 100 SUBQ Mupirocin (BACTROBAN 2% 22 GM OINTMENT) 1 APPLIC BID NASAL Miscellaneous Information (VANCOMYCIN PHARMACY T O DOSE) 1 EACH ASDIR IV (CKD) Lactulose (LACTULOSE) 20 GM DAILY PRN PRN PO Docusate Sodium (COLACE) 100 MG BID PO Sodium Chloride (OCEAN) 1 SPRAY Q2H PRN PRN NASA L Albuterol/Ipratropium (DUONEB) 3 ML RTQ4H PRN DC N NEB Ticagrelor (BRILINTA) 90 MG Q12HR PO Atropine Sulfate (ATROPINE SULFATE 0.1MG/ML SYR) 0.5 MG ASDIR PRN IV Sodium Chloride (SODIUM CHLORIDE 0.9%) 500 ML DIR PRN IV Sevelamer Carbonate (RENVELA) 3,200 MG C MEALS P O Calcitriol (RocaltroL) 0.5 MCG DAILY PO Midodrine (PROAMATINE) 5 MG 0900,1300,1700 PO Levothyroxine Sodium (LEVOTHYROXINE SODIUM) 150 MCG DAILY 0600 PO Buspirone HCl (BUSPAR) 5 MG BID PO Metoprolol Tartrate (LOPRESSOR) 12.5 MG Q12HR PO Pantoprazole (PROTONIX) 40 MG 0600,1800 PO Midodrine (PROAMATINE) 10 MG DIALYSIS-DOSE BEFOR E PO (CKD) Albumin Human (ALBUMINAR-25%) 12.5 GM ASDIR PRN IV Heparin Sodium (Porcine) (HEPARIN SODIUM) 3,000 UNIT ASDIR PRN DIALYSIS Lidocaine HCl (LIDOCAINE HCL/PF) 0.5 ML ASDIR DC N I-DERMAL (CKD) Mannitol (MANNITOL 25% 12.5GM/50ML) 12.5 GM ASDI R PRN IV Sodium Chloride (SODIUM CHLORIDE 0.9%) 2,000 ML ASDIR PRN IV Sodium Chloride (SODIUM CHLORIDE) 5 ML ASDIR PRN IV Sodium Chloride (SODIUM CHLORIDE) 10 ML ASDIR DC N IV Sodium Chloride (SODIUM CHLORIDE 0.9%) 250 ML DIR PRN IV Aspirin (ASPIRIN) 81 MG C BK PO Atorvastatin Calcium (LIPITOR) 40 MG 2100 PO Insulin Human Lispro (HUMALOG) 0 AC HS SUBQ Dextrose/Water (DEXTROSE 10% IN WATER) 125 ML DIR PRN IV (CKD) Dextrose/Water (DEXTROSE 10% IN WATER) 250 ML DIR PRN IV (CKD) Glucagon (GLUCAGON) 1 MG ASDIR PRN IM Melatonin (Melatonin) 3 MG BEDTIME PRN PRN PO Acetaminophen (TYLENOL) 650 MG Q4H PRN PRN PO Heparin Sodium (HEPARIN 5000 UNITS/ML) 5,000 UNI T ASDIR PRN IV Nitroglycerin (NITROSTAT) 0.4 MG Q5M PRN PRN SL Ondansetron HCl (ZOFRAN) 4 MG Q6H PRN PRN IV Physical Exam General appearance: alert, awake, oriented, no a cute distress Head/eyes: atraumatic, normocephalic, PERRL Neck: supple/no meningismus, no bruit/NL carotid s, no lymphadenopathy Cardiovascular: normal S1/S2, no rub, no gallop Respiratory/chest: decreased breath sounds, symmetric expansion, no distress, no tenderness Abdomen: soft, normal bowel sounds, no distentio n, no guarding Extremities: edema, no clubbing Neuro/SURGICAL SPECIALIST: alert, oriented X 3, no motor deficit s Skin: dry, normal color Ulcer: Type/cause: diabetic, arterial Location: foot (bilateral toes) Psychiatry: normal affect, no hallucinations Results Findings/Data: Laboratory Tests 07/04/22 0540: [Embedded Image Not Available] Laboratory Tests 07/04 07/04 07/04 07/04 07/03 1204 1010 0545 0540 1913 Chemistry Sodium (134 - 147 mEq/L) 140 Potassium (3.4 - 5.0 mEq/L) 4.2 Chloride (100 - 108 mEq/L) 100 Carbon Dioxide (21 - 33 mEq/l) 28 Anion Gap (0 - 20) 17 BUN (7 - 18 mg/dL) 35 H Creatinine (0.6 - 1.3 mg/dL) 5.1 H Glomerular Filtr Rate (80 - 90) 8.8 L Glucose (70 - 110 mg/dL) 179 H POC Glucose (70 - 110 MG/DL) 132 H 131 H 173 H 167 H Calcium (8.0 - 10.5 mg/dL) 10.1 Phosphorus (2.5 - 4.9 MG/DL) 3.4 Magnesium (1.80 - 2.40 mg/dL) 2.31 07/03 1546 Chemistry POC Glucose (70 - 110 MG/DL) 131 H Laboratory Tests 07/04 0540 Hematology WBC (4.5 - 11.0 x10 3/uL) 7.8 RBC (3.54 - 5.02 x10 6/uL) 3.00 L Hgb (11.0 - 15.0 g/dL) 9.0 L Hct (33.0 - 45.0 %) 30.4 L MCV (81.0 - 99.0 fL) 101.3 H MCH (27.0 - 33.0 pg) 30.0 MCHC (33.0 - 37.0 g/dL) 29.6 L RDW (11.5 - 14.5 %) 15.0 H Plt Count (150 - 400 x10 3/uL) 190 MPV (7.0 - 9.0 fL) 9.5 H Neut % (Auto) (56.0 - 77.0 %) 75.9 Lymph % (Auto) (14.0 - 32.0 %) 9.6 L Kerr % (Auto) (4.8 - 9.0 %) 9.8 H Eos % (Auto) (0.3 - 3.7 %) 4.2 H Baso % (Auto) (0.0 - 2.0 %) 0.1 Neut # (Auto) (2.0 - 7.6 x10 3/uL) 5.91 Lymph # (Auto) (1.0 - 3.8 x10 3/uL) 0.75 L Kerr # (Auto) (0.1 - 0.8 x10 3/uL) 0.76 Eos # (Auto) (0.0 - 0.2 x10 3/uL) 0.33 H Baso # (Auto) (0.0 - 0.2 x10 3/uL) 0.01 Abs Immat Gran (auto) (0.00 - 0.03 x10 3/uL) 0 .03 Add Manual Diff NO Immature Gran % (0.0 - 2.0 %) 0.4 Nucleated RBC % (0 - 0 %) 0.0 Nucleated RBCs # (Man) (0.0 - 0.1 x10 3/uL) 0.0 0 Laboratory Tests 07/04 0540 Toxicology Random Vancomycin (mcg/mL) 19.9 Diagnosis, Assessment Plan Free Text A P: 1- Acute hypoxemic respiratory failure 2- Acute pulm edema 3- Cardiology disease status post PCI 4- Chronic diastolic heart failure HFpEF 5- End-stage renal disease on hemodialysis 6- Hypertension/DM2 7- Peripheral vascular disease/ischemic ulcer 8- Obesity ? Underlying JAMILAH - Nasal cannula O2, titrate to keep sats above 9 4% - Hemodialysis with fluid removal per nephrology service - Dagoberto every 4 hours as needed - Continue to optimize heart failure management, blood pressure control - Wound care - Outpatient sleep study - DVT prophylaxis - Transferred briefly to ICU after suspected vas ovagal event now resolved - D/C Planning Consultants: cardiology, cardiovascular surgery, nephrology, wound care at 1436 RPT #:[id number] END OF REPORT 2022-07-04 12:25:00-00:00 [facility] ([facility]) Infectious Dis. Progress Note REPORT#:[id number] REPORT STATUS: Signed DATE:07/04/22 TIME: 1225 PATIENT: MESERET MOTTA UNIT #: [id number] ROOM/BED: [place] [id number] : 56 AGE: 67 SEX: F ATTEND: Adonis Gaytan MD ADM AUTHOR: Kasey Mendez MD * ALL edits or amendments must be made on the [employer]/computer document * Subjective HPI: 67 yr old with esrd on hd admitted after multiple falls and left foot vascular ulcers sec to severe PVD. Patient reports: No: cough, fever, headache. Portions of this section wer e scribed by Mohini Orozco on 07/04/22 at 1225 Objective General VS/I O: Vital Signs Date Temp Pulse Resp B/P B/P Mean Pulse Ox FiO2 07/03-07/04 97.3-98.2 80-87 15-21 115-162/67-81 88.4-108.2 97-99 Last Documented: Result Date Time Pulse Ox 99 07/04 0756 B/P 115/67 07/04 0756 O2 Delivery Nasal cannula 07/04 0756 O2 Flow Rate 3 07/04 0756 Temp 97.3 07/04 0756 Pulse 87 07/04 0756 Resp 21 07/04 0756 B/P Mean 108.2 07/04 0339 FiO2 21 06/28 2342 Vital Signs: Date Time Temp Pulse Resp B/P B/P Pulse O2 O2 F low FiO2 Mean Ox Delivery Rate 07/04 0756 97.3 87 21 115/67 99 Nasal 3 cannula 07/04 0750 Nasal 2 cannula 07/04 0339 97.5 82 17 162/81 108.2 98 07/03 2319 98.2 81 16 122/75 90.5 98 07/03 2000 Nasal 2 cannula 07/03 1914 98.2 83 15 125/70 88.4 97 07/03 1548 98.1 80 18 127/73 91.1 99 24 hour I O ending at 0700: 07/04 0700 07/03 1900 Intake Total 310.00 Output Total 0 Balance 310.00 Intake, IV 10.00 Intake, Oral 300 Number 0 Bowel Movements Number Voids 2 Output, Stool 0 PATIENT WEIGHT: Weight (lb): 245 Weight (oz): 9.52 Weight (kg): 111.13 Physical Exam General appearance: awake Wound/incision: Location: jarrett left more than right foot ulcers, erythema Site condition: dressing clean dry, dressing in tact Head/Eyes: clear cornea, PERRL ENT: moist mucosal membranes Neck: full range of motion, no JVD Cardiovascular: normal heart sounds Respiratory: rhonchi Abdomen: no CVA tenderness, no distention, no gu arding Genitourinary: no flank pain, no urinary cathete r Extremities: abnormal capill dre refill, abnormal temperature, edema, moves all, normal motor function, no clubbing, no contractu re, no cyanosis Skin: erythema, dry Ulcer: Type/cause: diabetic, arterial Location: foot (bilateral toes) Results Findings/Data: Laboratory Tests 07/04 07/04 07/04 07/04 07/03 1204 1010 0545 0540 1913 Chemistry Sodium (134 - 147 mEq/L) 140 Potassium (3.4 - 5.0 mEq/L) 4.2 Chloride (100 - 108 mEq/L) 100 Carbon Dioxide (21 - 33 mEq/l) 28 Anion Gap (0 - 20) 17 BUN (7 - 18 mg/dL) 35 H Creatinine (0.6 - 1.3 mg/dL) 5.1 H Glomerular Filtr Rate (80 - 90) 8.8 L Glucose (70 - 110 mg/dL) 179 H POC Glucose (70 - 110 MG/DL) 132 H 131 H 173 H 167 H Calcium (8.0 - 10.5 mg/dL) 10.1 Phosphorus (2.5 - 4.9 MG/DL) 3.4 Magnesium (1.80 - 2.40 mg/dL) 2.31 07/03 1546 Chemistry POC Glucose (70 - 110 MG/DL) 131 H Laboratory Tests 07/04 0540 Hematology WBC (4.5 - 11.0 x10 3/uL) 7.8 RBC (3.54 - 5.02 x10 6/uL) 3.00 L Hgb (11.0 - 15.0 g/dL) 9.0 L Hct (33.0 - 45.0 %) 30.4 L MCV (81.0 - 99.0 fL) 101.3 H MCH (27.0 - 33.0 pg) 30.0 MCHC (33.0 - 37.0 g/dL) 29.6 L RDW (11.5 - 14.5 %) 15.0 H Plt Count (150 - 400 x10 3/uL) 190 MPV (7.0 - 9.0 fL) 9.5 H Neut % (Auto) (56.0 - 77.0 %) 75.9 Lymph % (Auto) (14.0 - 32.0 %) 9.6 L Kerr % (Auto) (4.8 - 9.0 %) 9.8 H Eos % (Auto) (0.3 - 3.7 %) 4.2 H Baso % (Auto) (0.0 - 2.0 %) 0.1 Neut # (Auto) (2.0 - 7.6 x10 3/uL) 5.91 Lymph # (Auto) (1.0 - 3.8 x10 3/uL) 0.75 L Kerr # (Auto) (0.1 - 0.8 x10 3/uL) 0.76 Eos # (Auto) (0.0 - 0.2 x10 3/uL) 0.33 H Baso # (Auto) (0.0 - 0.2 x10 3/uL) 0.01 Abs Immat Gran (auto) (0.00 - 0.03 x10 3/uL) 0. 03 Add Manual Diff NO Immature Gran % (0.0 - 2.0 %) 0.4 Nucleated RBC % (0 - 0 %) 0.0 Nucleated RBCs # (Man) (0.0 - 0.1 x10 3/uL) 0.0 0 Laboratory Tests 07/04 0540 Toxicology Random Vancomycin (mcg/mL) 19.9 Medication(s) Ordered: Ahfs Category Unknown Sig/Enedina Start time Last Medication Dose Route Stop Time Status Admin Melatonin 3 MG BEDTIME PRN PRN 06/21 1900 AC PO 07/21 1859 2007 Anti-Infective Agents Sig/Enedina Start time Last Medication Dose Route Stop Time Status Admin Vancomycin HCl 1,000 MG ONCE ONE 07/04 1500 AC Sodium Chloride 250 ML IV 07/04 1559 Miscellaneous 1 EACH ASDIR 06/30 1300 CKD Information IV 07/30 1259 Autonomic Drugs Sig/Enedina Start time Last Medication Dose Route Stop Time Status Admin Albuterol/Ipratropium 3 ML RTQ4H PRN PRN 06/28 1215 AC NEB 07/28 1214 Atropine Sulfate 0.5 MG ASDIR PRN 06/27 1600 AC IV 07/27 1559 Midodrine 5 MG 0900,1300,1700 06/23 0900 AC PO 07/23 0859 1702 Midodrine 10 MG DIALYSIS-DOSE BEFORE 06/22 1545 CKD 06/26 PO 07/22 1544 1856 Blood Derivatives Sig/Enedina Start time Last Medication Dose Route Stop Time Status Admin Albumin Human 12.5 GM ASDIR PRN 06/22 1530 AC 08/28 IV 07/23 1529 1909 Blood Formation,Coagulation Sig/Enedina Start time Last Medication Dose Route Stop Time Status Admin Epoetin Vanesa-epbx 6,000 UNIT TuThSa@2100 07/01 2300 AC 07/02 SUBQ 07/31 2259 0052 Ticagrelor 90 MG Q12HR 06/28 1115 AC 07/03 PO 07/28 1114 1999 Heparin Sodium 3,000 UNIT ASDIR PRN 06/22 1530 AC 07/04 (Porcine) DIALYSIS 07/22 1529 0805 Heparin Sodium 5,000 UNIT ASDIR PRN 06/21 1730 AC 06/22 IV 07/21 1729 1449 Cardiovascular Drugs Sig/Enedina Start time Last Medication Dose Route Stop Time Status Admin Metoprolol Tartrate 12.5 MG Q12HR 06/22 2100 AC 07/03 PO 07/22 2058 1958 Lidocaine HCl 0.5 ML ASDIR PRN 06/22 1530 CKD I-DERMAL 07/23 1529 Atorvastatin Calcium 40 MG 2100 06/21 2100 AC 09/03 PO 07/21 Nitroglycerin 0.4 MG Q5M PRN PRN 06/21 1730 AC SL 07/21 1729 Central Nervous System Agents Sig/Enedina Start time Last Medication Dose Route Stop Time Status Admin Buspirone HCl 5 MG BID 06/22 2100 AC 07/03 PO 07/22 Aspirin 81 MG C BK 06/22 0800 AC 07/03 PO 07/22 0759 0837 Acetaminophen 650 MG Q4H PRN PRN 06/21 1730 AC 07/04 PO 07/21 1729 0931 Electrolytic, Caloric, And Bailey Sig/Enedina Start time Last Medication Dose Route Stop Time Status Admin Lactulose 20 GM DAILY PRN PRN 06/30 1045 AC PO 07/30 1044 0125 Sodium Chloride 500 ML ASDIR PRN 06/27 1600 AC IV 07/27 1559 Sevelamer Carbonate 3,200 MG C MEALS 06/26 0800 AC 07/03 PO 07/26 0759 1702 Mannitol 12.5 GM ASDIR PRN 06/22 1530 AC IV 07/23 1529 Sodium Chloride 2,000 ML ASDIR PRN 06/22 1530 A C 07/04 IV 07/23 1529 0804 Sodium Chloride 5 ML ASDIR PRN 06/22 1530 AC IV 07/22 1529 Sodium Chloride 10 ML ASDIR PRN 06/22 1530 AC 1 09/04 IV 07/22 1529 0806 Sodium Chloride 250 ML ASDIR PRN 06/22 1530 AC IV 07/22 1529 Dextrose/Water 125 ML ASDIR PRN 06/21 1900 CKD IV 07/21 1859 Dextrose/Water 250 ML ASDIR PRN 06/21 1900 CKD IV 07/21 1859 Eye, Ear, Nose And Throat (Een Sig/Enedina Start time Last Medication Dose Route Stop Time Status Admin Sodium Chloride 1 SPRAY Q2H PRN PRN 06/29 1015 AC 06/29 NASAL 07/29 1014 1724 Gastrointestinal Drugs Sig/Enedina Start time Last Medication Dose Route Stop Time Status Admin Sennosides 8.6 MG BID 07/03 2100 AC 07/03 PO 08/02 Polyethylene Glycol 17 GM DAILY 07/03 1115 AC 1 09/03 PO 08/02 1114 1152 Magnesium Hydroxide 30 ML BID PRN PRN 07/02 134 5 AC 07/02 PO 08/01 1344 1448 Docusate Sodium 100 MG BID 06/30 09 AC 07/03 PO 07/30 0859 1999 Pantoprazole 40 MG 0600,1800 06/22 1800 AC 06/09 7 PO 07/22 1759 0607 Ondansetron HCl 4 MG Q6H PRN PRN 06/21 1730 AC 07/02 IV 07/21 1729 2008 Hormones And Synthetic Substit Sig/Enedina Start time Last Medication Dose Route Stop Time Status Admin Levothyroxine Sodium 150 MCG DAILY 06/23 0 600 AC 07/04 PO 07/23 0559 0607 Insulin Human Lispro 0 AC HS 06/21 2100 AC 06/09 6 SUBQ 07/21 2058 115 Glucagon 1 MG ASDIR PRN 06/21 1900 AC IM 07/21 1859 Skin And Mucous Membrane Agent Sig/Enedina Start time Last Medication Dose Route Stop Time Status Admin Mupirocin 1 APPLIC BID 07/01 2100 AC 07/03 NASAL 07/06 0901 2000 Vitamins Sig/Enedina Start time Last Medication Dose Route Stop Time Status Admin Calcitriol 0.5 MCG DAILY 06/23 09 AC 07/03 PO 07/23 0859 0838 Recent Impressions: ULTRASOUND - US PELVIS COMPLETE 07/01 1406 Report Impression - Status: SIGNED Entered: 07/01/2022 1434 IMPRESSION: Limited exam 1. Probable uterine fibroids. If further delinea tion is desired, an MRI pelvis without and with IV contrast can be o btained. 2. Fluid in the endocervical canal of uncertain etiology, may be related to history of bleeding. 3. Ovaries not visualized. Impression By: Donna Moran M.D. ULTRASOUND - US TRANSVAGINAL NON OB 07/01 1407 Report Impression - Status: SIGNED Entered: 07/01/2022 1434 IMPRESSION: Limited exam 1. Probable uterine fibroids. If further delinea tion is desired, an MRI pelvis without and with IV contrast can be o btained. 2. Fluid in the endocervical canal of uncertain etiology, may be related to history of bleeding. 3. Ovaries not visualized. Impression By: Donna Moran M.D. RADIOLOGY - XR CHEST 1 V 07/01 1537 Report Impression - Status: SIGNED Entered: 07/01/2022 1741 IMPRESSION: 1. Cardiac silhouette moderately enlarged. 2. Moderate right pleural effusion. 3. Hazy airspace and interstitial opacities with in both lungs, which may represent pulmonary edema, pneumonitis and/or atelectasis. Impression By: [email or web address] Gali Hernandez M.D. Portions of this section alden spears scribed by Mohini Orozco on 07/04/22 at 1225 Diagnosis, Assessment Plan Free Text A P: 1. Severe PVd: vascular ulce rs of the left foot : infection with e. fecalis: s/p vascular intrvention. on vanc post hd day 5 out of 7. cont. 2. Leucocytosis: multifactor ial sec to foot ulcers infection, leukemoid reaction to fluid overload. 3. ESRD: on hd. 4. Dmii: with DFU: on insulin 5. diastolic heart failure 6. hypertension Consultants: cardiology, cardiovascular surgery, nephrology, wound care Portions of this section alden spears scribed by Mohini Orozco on 07/04/22 at 1225 at 1350 RPT #:[id number] END OF REPORT 2022-07-04 12:15:00-00:00 [facility] Progress Note REPORT#:[id number] REPORT STATUS: Signed DATE:07/04/22 TIME: 1215 PATIENT: MESERET MOTTA UNIT #: [id number] ROOM/BED: [place] [id number] : 56 AGE: 67 SEX: F ATTEND: Adonis Gaytan MD ADM AUTHOR: Lisa Vega INDUSTRIAL RELATIONS DIRECTOR * ALL edits or amendments must be made on the el [employer]/computer document * Subjective Chief complaint: rehab follow-up HD today- No new issues Eating fair NAD Denies TABARES/N/V/D/CP 14 systems reviewed and neg. except that above. Objective General VS: Vital Signs: Date Time Temp Pulse Resp B/P B/P Pulse O2 O2 F low FiO2 Mean Ox Delivery Rate 07/04 0756 97.3 87 21 115/67 99 Nasal 3 cannula 07/04 0750 Nasal 2 cannula 07/04 0339 97.5 82 17 162/81 108.2 98 07/03 2319 98.2 81 16 122/75 90.5 98 07/03 2000 Nasal 2 cannula 07/03 1914 98.2 83 15 125/70 88.4 97 07/03 1548 98.1 80 18 127/73 91.1 99 PATIENT WEIGHT: Weight (lb): 245 Weight (oz): 9.52 Weight (kg): 111.13 Medications: Active Meds + DC'd Last 24 Hrs Vancomycin HCl (VANCOMYCIN HCL) 1,000 MG ONCE ON E IV Sodium Chloride (SODIUM CHLORIDE 0.9%) 250 ML Sennosides (Senna Lax 8.6 MG TABLET) 8.6 MG BID PO Polyethylene Glycol (MIRALAX) 17 GM DAILY PO Magnesium Hydroxide (MILK OF MAGNESIA) 30 ML BID PRN PRN PO Epoetin Vanesa-epbx (RETACRIT) 6,000 UNIT TuThSa@2 100 SUBQ Mupirocin (BACTROBAN 2% 22 GM OINTMENT) 1 APPLIC BID NASAL Miscellaneous Information (VANCOMYCIN PHARMACY T O DOSE) 1 EACH ASDIR IV (CKD) Lactulose (LACTULOSE) 20 GM DAILY PRN PRN PO Docusate Sodium (COLACE) 100 MG BID PO Sodium Chloride (OCEAN) 1 SPRAY Q2H PRN PRN NASA L Albuterol/Ipratropium (DUONEB) 3 ML RTQ4H PRN DC N NEB Ticagrelor (BRILINTA) 90 MG Q12HR PO Atropine Sulfate (ATROPINE SULFATE 0.1MG/ML SYR) 0.5 MG ASDIR PRN IV Sodium Chloride (SODIUM CHLORIDE 0.9%) 500 ML DIR PRN IV Sevelamer Carbonate (RENVELA) 3,200 MG C MEALS P O Calcitriol (RocaltroL) 0.5 MCG DAILY PO Midodrine (PROAMATINE) 5 MG 0900,1300,1700 PO Levothyroxine Sodium (LEVOTHYROXINE SODIUM) 150 MCG DAILY 0600 PO Buspirone HCl (BUSPAR) 5 MG BID PO Metoprolol Tartrate (LOPRESSOR) 12.5 MG Q12HR PO Pantoprazole (PROTONIX) 40 MG 0600,1800 PO Midodrine (PROAMATINE) 10 MG DIALYSIS-DOSE BEFOR E PO (CKD) Albumin Human (ALBUMINAR-25%) 12.5 GM ASDIR PRN IV Heparin Sodium (Porcine) (HEPARIN SODIUM) 3,000 UNIT ASDIR PRN DIALYSIS Lidocaine HCl (LIDOCAINE HCL/PF) 0.5 ML ASDIR P RN I-DERMAL (CKD) Mannitol (MANNITOL 25% 12.5GM/50ML) 12.5 GM ASDI R PRN IV Sodium Chloride (SODIUM CHLORIDE 0.9%) 2,000 ML ASDIR PRN IV Sodium Chloride (SODIUM CHLORIDE) 5 ML ASDIR PRN IV Sodium Chloride (SODIUM CHLORIDE) 10 ML ASDIR DC N IV Sodium Chloride (SODIUM CHLORIDE 0.9%) 250 ML DIR PRN IV Aspirin (ASPIRIN) 81 MG C BK PO Atorvastatin Calcium (LIPITOR) 40 MG 2100 PO Insulin Human Lispro (HUMALOG) 0 AC HS SUBQ Dextrose/Water (DEXTROSE 10% IN WATER) 125 ML DIR PRN IV (CKD) Dextrose/Water (DEXTROSE 10% IN WATER) 250 ML DIR PRN IV (CKD) Glucagon (GLUCAGON) 1 MG ASDIR PRN IM Melatonin (Melatonin) 3 MG BEDTIME PRN PRN PO Acetaminophen (TYLENOL) 650 MG Q4H PRN PRN PO Heparin Sodium (HEPARIN 5000 UNITS/ML) 5,000 UNI T ASDIR PRN IV Nitroglycerin (NITROSTAT) 0.4 MG Q5M PRN PRN SL Ondansetron HCl (ZOFRAN) 4 MG Q6H PRN PRN IV Physical Exam General appearance: alert, awake Psych: alert, oriented x 3 HEENT: anicteric, mucosal membranes moist Neck: supple, no JVD Cardiovascular: regular rate rhythm, no murmur Respiratory: aerating well, clear bilaterally Abdomen: bowel sounds present, non-distended, so ft, non-tender Skin: BLE and hand multi wounds Ulcer: Type/cause: diabetic, arterial Location: foot (bilateral toes) Musculoskeletal - general: Musculoskeletal - general: swelling (BLE), MMT BUE +3/5 BLE HF -3/5 KE +3/5 Neuro/SURGICAL SPECIALIST: sensory deficit ( decrease BLE), alert, oriented X 3, CNII-XII intact, normal speech Genitourinary: Results Findings/Data: Laboratory Tests: 12/27 12/27 12/27 12/27 12/26 1204 1010 8608 2937 9416 Chemistry Sodium (134 - 147 mEq/L) 140 Potassium (3.4 - 5.0 mEq/L) 4.2 Chloride (100 - 108 mEq/L) 100 Carbon Dioxide (21 - 33 mEq/l) 28 Anion Gap (0 - 20) 17 BUN (7 - 18 mg/dL) 35 H Creatinine (0.6 - 1.3 mg/dL) 5.1 H Glomerular Filtr Rate (80 - 90) 8.8 L Glucose (70 - 110 mg/dL) 179 H POC Glucose (70 - 110 MG/DL) 132 H 131 H 173 H 167 H Calcium (8.0 - 10.5 mg/dL) 10.1 Phosphorus (2.5 - 4.9 MG/DL) 3.4 Magnesium (1.80 - 2.40 mg/dL) 2.31 Hematology WBC (4.5 - 11.0 x10 3/uL) 7.8 RBC (3.54 - 5.02 x10 6/uL) 3.00 L Hgb (11.0 - 15.0 g/dL) 9.0 L Hct (33.0 - 45.0 %) 30.4 L MCV (81.0 - 99.0 fL) 101.3 H MCH (27.0 - 33.0 pg) 30.0 MCHC (33.0 - 37.0 g/dL) 29.6 L RDW (11.5 - 14.5 %) 15.0 H Plt Count (150 - 400 x10 3/uL) 190 MPV (7.0 - 9.0 fL) 9.5 H Neut % (Auto) (56.0 - 77.0 %) 75.9 Lymph % (Auto) (14.0 - 32.0 %) 9.6 L Kerr % (Auto) (4.8 - 9.0 %) 9.8 H Eos % (Auto) (0.3 - 3.7 %) 4.2 H Baso % (Auto) (0.0 - 2.0 %) 0.1 Neut # (Auto) (2.0 - 7.6 x10 3/uL) 5.91 Lymph # (Auto) (1.0 - 3.8 x10 3/uL) 0.75 L Kerr # (Auto) (0.1 - 0.8 x10 3/uL) 0.76 Eos # (Auto) (0.0 - 0.2 x10 3/uL) 0.33 H Baso # (Auto) (0.0 - 0.2 x10 3/uL) 0.01 Abs Immat Gran (auto) (0.00 - 0.03 0.03 x10 3/uL) Add Manual Diff NO Immature Gran % (0.0 - 2.0 %) 0.4 Nucleated RBC % (0 - 0 %) 0.0 Nucleated RBCs # (Man) (0.0 - 0.1 0.00 x10 3/uL) Toxicology Random Vancomycin (mcg/mL) 19.9 07/03 1546 Chemistry POC Glucose (70 - 110 MG/DL) 131 H Diagnosis, Assessment Plan Free Text A P: 67-year-old female with weakness and impaired mo bility 2/2 cardiac myopathy positive for NSTEMI Multivessel CAD, acute on ron diastolic heart failure -End-stage renal disease on hemodialysis -Severe PVD-(s/p MORPHOLOGIST and ath erectomy with CSI followed by MORPHOLOGIST with TAVR balloon on left anterior and posterior tibial artery. CT O of right anterior/posterior tibial artery) -Uremic Neuropathy -Uremic Myopathy -Generalized weakness -Impaired mobility, gait, balance, ADLs, and end urance -Acute hypoxemia resp failure -Acute on chronic diastolic HF -Diabetes type 2 with hyperglycemia -Hypertension -COPD -Multiple wounds on feet and hands Plan: Continue supportive and preventative care Wound care team is following wound care manageme nt Continue PT/OT Out of bed to chair Work on ADLs, strength, bed mobility, transfers, gait DVT prophylaxis on SCD Strict fall and safety precautions Monitor p.o. intake and nutrition Strict decubitus precautions Monitor labs Wound care on outsole caser labs Advance therapies as tolerated. Patient particip ating in therapies Pt. no longer wants IRF. [facility] [place]. Discussed with CM. Order for SNF placed. Therapy update: Transfers: SPV Ambulation :RW 100ft MIN PATIENT AGREEABLE TO GAIT TRNG. O2 4 LPM WITH EX ERTION AND ON 3LPM AT REST. SPO2 TOLERANCE WITH MOBILITY AND GAIT. TT:35 mins: time spent reviewing chart, meds, la bs notes and assessing pt and discussing rehab poc. Answered all quesions Consultants: cardiology, cardiovascular surgery, nephrology, wound care Rehab attestation: Face to face exam completed. Treatment plan disc ussed with patient. at 1037 RPT #:[id number] END OF REPORT 2022-07-04 10:19:00-00:00 [facility]) Pharmacy Prog.Note-Vancomycin REPORT#:[id number] REPORT STATUS: Signed DATE:07/04/22 TIME: 1019 PATIENT: MESERET MOTTA UNIT #: [id number] ROOM/BED: [place] [id number] : 56 AGE: 67 SEX: F ATTEND: Adonis Gaytan MD ADM AUTHOR: Florentino Roberts [facility] * ALL edits or amendments must be made on the Summay/computer document * Vancomycin Vancomycin Medication Therapy Goal: Pre-HD vanco goal 15-20mcg/mL Indication for treatment: SSTI Current therapy: Post-HD vancomycin 1000 mg IV once VS and I/O: Vital Signs Date Temp Pulse Resp B/P B/P Mean Pulse Ox FiO2 07/01-07/04 96.1-98.6 71-138 15-39 104-162/54-8 9 75-108.2 95-100 72 hours ending at 0700 07/04 0707/03 19007/01 07 1900 Intake 310.00 410.00 840 650.00 Total Output 0 3834 Total Balance 310.00 410.00 840 -3184.00 Intake, IV 10.00 10.00 250.00 Intake, 300 400 840 400 Oral Number 0 1 Bowel Movements Number 2 2 4 Voids Output, 3834 Hemodialys is Output, 0 Stool 72 Hour I O Total 07/04 0707/03 0707/02 07 Intake Total 310.00 1250.00 650.00 Output Total 0 3834 Balance 310.00 1250.00 -3184.00 Labs: Laboratory Tests: 07/04 0540 Toxicology Random Vancomycin (mcg/mL) 19.9 Laboratory Test : 07/04 0540 Chemistry BUN (7 - 18 mg/dL) 35 H Creatinine (0.6 - 1.3 mg/dL) 5.1 H Hematology WBC (4.5 - 11.0 x10 3/uL) 7.8 Last dialysis session: Date: 07/04/22 Treatment plan: consult, cont current regimen/do se Regimen: Ms. Meseret Motta is a 67-year-old female with history of end-stage renal disease on hemodialysis, hypertension, diabetes, hypothyroidism, who was transferred from [facility] on 08/23 for evaluation for CABG. Patient presented here 1 week ago with complaint s of shortness of breath and lower extremity edema. Pharmacy has been consulted to dose vancomycin for SSTI Consulting Provider: Kasey Mendez MD Indication: SSTI Pre-HD Vancomycin Level Goal: 15-20 mcg/ml 07/04 Assessment and Plan: * WBC 7.8, Afebrile, Tmax 98.1F documented over 24 hours * Renal function:ESRD on HD on , Last HD session on 07/04, No residual UOP documented * Dosing/monitoring: Day 5 o f 7. Vancomycin loading dose 1750 mg ( 16 mg/kg) x1 given on 06/30. Random vanc level on 07/01 at 05 00 was 22.4 mcg/ml, supratherapeutic, pre-HD goal 15-20 mcg/ ml Pt still re-dosed with vanc 1000 mg IV x 1 post HD on 07/01. Random PreHD level on 09/04 AM = 19.9 mcg/mL, therapeutic. Goal PreHD 15-2 0 mcg/ml. Will re-dose with Vancomycin 1000mg IV x1 postHD today. Plan to repeat vanc level on 07/06 prior to next HD session. Electronically Signed by Florentino Roberts [facility] on at 1020 RPT #:[id number] END OF REPORT 2022-07-04 09:34:00-00:00 [facility] ([facility]) Wound Care Progress Note REPORT#:[id number] REPORT STATUS: Signed DATE:07/04/22 TIME: 933 PATIENT: MESERET MOTTA UNIT #: [id number] ROOM/BED: [place] [id number] : 56 AGE: 67 SEX: F ATTEND: Adonis Gaytan MD ADM AUTHOR: Sybil Byers MD * ALL edits or amendments must be made on the Summay/computer document * Subjective Chief complaint: Woundcare FU for foot, hand leg ulcers; less dariana n, improving Objective General Medications: Active Meds + DC'd Last 24 Hrs Sennosides (Senna Lax 8.6 MG TABLET) 8.6 MG BID PO Polyethylene Glycol (MIRALAX) 17 GM DAILY PO Magnesium Hydroxide (MILK OF MAGNESIA) 30 ML BID PRN PRN PO Epoetin Vanesa-epbx (RETACRIT) 6,000 UNIT TuThSa@2 100 SUBQ Mupirocin (BACTROBAN 2% 22 GM OINTMENT) 1 APPLIC BID NASAL Miscellaneous Information (VANCOMYCIN PHARMACY T O DOSE) 1 EACH ASDIR IV (CKD) Lactulose (LACTULOSE) 20 GM DAILY PRN PRN PO Docusate Sodium (COLACE) 100 MG BID PO Sodium Chloride (OCEAN) 1 SPRAY Q2H PRN PRN NASA L Albuterol/Ipratropium (DUONEB) 3 ML RTQ4H PRN DC N NEB Ticagrelor (BRILINTA) 90 MG Q12HR PO Atropine Sulfate (ATROPINE SULFATE 0.1MG/ML SYR) 0.5 MG ASDIR PRN IV Sodium Chloride (SODIUM CHLORIDE 0.9%) 500 ML DIR PRN IV Sevelamer Carbonate (RENVELA) 3,200 MG C MEALS P O Calcitriol (RocaltroL) 0.5 MCG DAILY PO Midodrine (PROAMATINE) 5 MG 0900,1300,1700 PO Levothyroxine Sodium (LEVOTHYROXINE SODIUM) 150 MCG DAILY 0600 PO Buspirone HCl (BUSPAR) 5 MG BID PO Metoprolol Tartrate (LOPRESSOR) 12.5 MG Q12HR PO Pantoprazole (PROTONIX) 40 MG 0600,1800 PO Midodrine (PROAMATINE) 10 MG DIALYSIS-DOSE BEFOR E PO (CKD) Albumin Human (ALBUMINAR-25%) 12.5 GM ASDIR PRN IV Heparin Sodium (Porcine) (HEPARIN SODIUM) 3,000 UNIT ASDIR PRN DIALYSIS Lidocaine HCl (LIDOCAINE HCL/PF) 0.5 ML ASDIR DC N I-DERMAL (CKD) Mannitol (MANNITOL 25% 12.5GM/50ML) 12.5 GM ASDI R PRN IV Sodium Chloride (SODIUM CHLORIDE 0.9%) 2,000 ML ASDIR PRN IV Sodium Chloride (SODIUM CHLORIDE) 5 ML ASDIR PRN IV Sodium Chloride (SODIUM CHLORIDE) 10 ML ASDIR DC N IV Sodium Chloride (SODIUM CHLORIDE 0.9%) 250 ML DIR PRN IV Aspirin (ASPIRIN) 81 MG C BK PO Atorvastatin Calcium (LIPITOR) 40 MG 2100 PO Insulin Human Lispro (HUMALOG) 0 AC HS SUBQ Dextrose/Water (DEXTROSE 10% IN WATER) 125 ML DIR PRN IV (CKD) Dextrose/Water (DEXTROSE 10% IN WATER) 250 ML DIR PRN IV (CKD) Glucagon (GLUCAGON) 1 MG ASDIR PRN IM Melatonin (Melatonin) 3 MG BEDTIME PRN PRN PO Acetaminophen (TYLENOL) 650 MG Q4H PRN PRN PO Heparin Sodium (HEPARIN 5000 UNITS/ML) 5,000 UNI T ASDIR PRN IV Nitroglycerin (NITROSTAT) 0.4 MG Q5M PRN PRN SL Ondansetron HCl (ZOFRAN) 4 MG Q6H PRN PRN IV Dietitian Nutrition assessment The data set between the solid lines has been im ported from the dietitian's assessment. BMI Calculated: 39.5 Nutrition related diagnosis: Nutrition diagnosis details: Nutrition problem: Nutrition etiology: Nutrition signs and symptoms: Nutrition prescription: Dietitian name: Assessment completed: Physical Exam General appearance: awake Skin: Multiple PT ulcers abrasions on B hands, B feet, L>R, w less erythema 0ver L dorsum foot L forefoot. Ulcers on dorsum toes, L>R, w erythema @ forefoot, some scabs coming off. LLE warm, RLE c old to touch. Ulcer: Type/cause: diabetic, arterial Location: foot (bilateral toes) Results Findings/Data: Recent Impressions: ULTRASOUND - US PELVIS COMPLETE 07/01 1406 Report Impression - Status: SIGNED Entered: 07/01/2022 1434 IMPRESSION: Limited exam 1. Probable uterine fibroids. If further delinea tion is desired, an MRI pelvis without and with IV contrast can be o btained. 2. Fluid in the endocervical canal of uncertain etiology, may be related to history of bleeding. 3. Ovaries not visualized. Impression By: Donna Moran M.D. ULTRASOUND - US TRANSVAGINAL NON OB 07/01 1407 Report Impression - Status: SIGNED Entered: 07/01/2022 1434 IMPRESSION: Limited exam 1. Probable uterine fibroids. If further delinea tion is desired, an MRI pelvis without and with IV contrast can be o btained. 2. Fluid in the endocervical canal of uncertain etiology, may be related to history of bleeding. 3. Ovaries not visualized. Impression By: Donna Moran M.D. RADIOLOGY - XR CHEST 1 V 07/01 1537 Report Impression - Status: SIGNED Entered: 07/01/2022 1741 IMPRESSION: 1. Cardiac silhouette moderately enlarged. 2. Moderate right pleural effusion. 3. Hazy airspace and interstitial opacities with in both lungs, which may represent pulmonary edema, pneumonitis and/or atelectasis. Impression By: [email or web address] - Sha Hernandez M.D. Current Medications Sig/Enedina Start time Last Medication Dose Route Stop Time Status Admin Sennosides 8.6 MG BID 07/03 2100 AC 07/03 PO 08/02 Polyethylene Glycol 17 GM DAILY 07/03 1115 AC PO 08/02 111 1152 Magnesium Hydroxide 30 ML BID PRN PRN 07/02 1345 AC 07/02 PO 08/01 1344 1448 Epoetin Vanesa-epbx 6,000 UNIT TuThSa@2100 07/01 2 300 AC 07/02 SUBQ 07/31 2259 0052 Mupirocin 1 APPLIC BID 07/01 2100 AC 07/03 NASAL 07/06 0901 2000 Miscellaneous 1 EACH ASDIR 06/30 1300 CKD Information IV 07/30 1259 Lactulose 20 GM DAILY PRN PRN 06/30 1045 AC 06/09 6 PO 07/30 1044 0125 Docusate Sodium 100 MG BID 06/30 0900 AC 07/03 PO 07/30 0859 2000 Sodium Chloride 1 SPRAY Q2H PRN PRN 06/29 1015 A C 06/29 NASAL 07/29 1014 1724 Albuterol/Ipratropiu 3 ML RTQ4H PRN PRN 06/28 12 15 AC m NEB 07/28 1214 Ticagrelor 90 MG Q12HR 06/28 1115 AC 07/03 PO 07/28 1114 1999 Atropine Sulfate 0.5 MG ASDIR PRN 06/27 1600 AC IV 07/27 1559 Sodium Chloride 500 ML ASDIR PRN 06/27 1600 AC IV 07/27 1559 Sevelamer Carbonate 3,200 MG C MEALS 06/26 0800 AC 07/03 PO 07/26 0759 1702 Calcitriol 0.5 MCG DAILY 06/23 0900 AC 07/03 PO 07/23 0859 0838 Midodrine 5 MG 0900,1300,1700 06/23 0900 AC 06/09 6 PO 07/23 0859 1702 Levothyroxine Sodium 150 MCG DAILY 0600 06/23 06 00 AC 07/04 PO 07/23 0559 0607 Buspirone HCl 5 MG BID 06/22 2100 AC 07/03 PO 07/22 Metoprolol Tartrate 12.5 MG Q12HR 06/22 2100 AC 07/03 PO 07/22 2058 195 Pantoprazole 40 MG 0600,1800 06/22 1800 AC 07/04 PO 07/22 1759 0607 Midodrine 10 MG DIALYSIS-DOSE 06/22 1545 CKD BEFORE PO 07/22 1544 1856 Albumin Human 12.5 GM ASDIR PRN 06/22 1530 AC IV 07/23 1529 1909 Heparin Sodium 3,000 UNIT ASDIR PRN 06/22 1530 A C 07/04 (Porcine) DIALYSIS 07/22 1529 0805 Lidocaine HCl 0.5 ML ASDIR PRN 06/22 1530 CKD I-DERMAL 07/23 1529 Mannitol 12.5 GM ASDIR PRN 06/22 1530 AC IV 07/23 1529 Sodium Chloride 2,000 ML ASDIR PRN 06/22 1530 AC 07/04 IV 07/23 1529 0804 Sodium Chloride 5 ML ASDIR PRN 06/22 1530 AC IV 07/22 1529 Sodium Chloride 10 ML ASDIR PRN 06/22 1530 AC IV 07/22 1529 0806 Sodium Chloride 250 ML ASDIR PRN 06/22 1530 AC IV 07/22 1529 Aspirin 81 MG C BK 06/22 0800 AC 07/03 PO 07/22 0759 0837 Atorvastatin Calcium 40 MG 2100 06/21 2100 AC PO 07/21 Insulin Human Lispro 0 AC HS 06/21 2100 AC 07/03 SUBQ 07/21 2058 115 Dextrose/Water 125 ML ASDIR PRN 06/21 1900 CKD IV 07/21 1859 Dextrose/Water 250 ML ASDIR PRN 06/21 1900 CKD IV 07/21 1859 Glucagon 1 MG ASDIR PRN 06/21 1900 AC IM 07/21 1859 Melatonin 3 MG BEDTIME PRN PRN 06/21 190 AC PO 07/21 1852007 Acetaminophen 650 MG Q4H PRN PRN 06/21 1730 AC 1 09/04 PO 07/21 172 0931 Heparin Sodium 5,000 UNIT ASDIR PRN 06/21 1730 A C 06/22 IV 07/21 1729 1449 Nitroglycerin 0.4 MG Q5M PRN PRN 06/21 1730 AC SL 07/21 1729 Ondansetron HCl 4 MG Q6H PRN PRN 06/21 1730 AC 1 09/02 IV 07/21 1729 2008 Laboratory Tests: 07/04 07/04 07/03 07/03 07/03 0545 0540 1913 1546 1050 Chemistry Sodium (134 - 147 mEq/L) 140 Potassium (3.4 - 5.0 mEq/L) 4.2 Chloride (100 - 108 mEq/L) 100 Carbon Dioxide (21 - 33 mEq/l) 28 Anion Gap (0 - 20) 17 BUN (7 - 18 mg/dL) 35 H Creatinine (0.6 - 1.3 mg/dL) 5.1 H Glomerular Filtr Rate (80 - 90) 8.8 L Glucose (70 - 110 mg/dL) 179 H POC Glucose (70 - 110 MG/DL) 173 H 167 H 131 H 202 H Calcium (8.0 - 10.5 mg/dL) 10.1 Phosphorus (2.5 - 4.9 MG/DL) 3.4 Magnesium (1.80 - 2.40 mg/dL) 2.31 Hematology WBC (4.5 - 11.0 x10 3/uL) 7.8 RBC (3.54 - 5.02 x10 6/uL) 3.00 L Hgb (11.0 - 15.0 g/dL) 9.0 L Hct (33.0 - 45.0 %) 30.4 L MCV (81.0 - 99.0 fL) 101.3 H MCH (27.0 - 33.0 pg) 30.0 MCHC (33.0 - 37.0 g/dL) 29.6 L RDW (11.5 - 14.5 %) 15.0 H Plt Count (150 - 400 x10 3/uL) 190 MPV (7.0 - 9.0 fL) 9.5 H Neut % (Auto) (56.0 - 77.0 %) 75.9 Lymph % (Auto) (14.0 - 32.0 %) 9.6 L Kerr % (Auto) (4.8 - 9.0 %) 9.8 H Eos % (Auto) (0.3 - 3.7 %) 4.2 H Baso % (Auto) (0.0 - 2.0 %) 0.1 Neut # (Auto) (2.0 - 7.6 x10 3/uL) 5.91 Lymph # (Auto) (1.0 - 3.8 x10 3/uL) 0.75 L Kerr # (Auto) (0.1 - 0.8 x10 3/uL) 0.76 Eos # (Auto) (0.0 - 0.2 x10 3/uL) 0.33 H Baso # (Auto) (0.0 - 0.2 x10 3/uL) 0.01 Abs Immat Gran (auto) (0.00 - 0.03 0.03 x10 3/uL) Add Manual Diff NO Immature Gran % (0.0 - 2.0 %) 0.4 Nucleated RBC % (0 - 0 %) 0.0 Nucleated RBCs # (Man) (0.0 - 0.1 0.00 x10 3/uL) Toxicology Random Vancomycin (mcg/mL) 19.9 Diagnosis, Assessment Plan Free Text A P: Multiple ulcers, B feet, B hands , sp fall, w ar terial ulcers, B feet - improving; continur Bactroba n BID to all ulcers, leave open to air. Xeroform to LLE foot ulcers. Wound cx- rare Enterococcus ; Severe PVD, BLE - sp angio LLE CAD- tx per cardiology DM ESRD on HD [ x] Optimize Nutrition and Glycemic Control [ x] Pressure relieving inte rventions (Low Air Mattress, Prevalon boot, Turn q2h ) [ x] Nursing to implement impaired skin integrit y care plan as per skin care protocol Coordinattion of care D/W [ ] Other MD's [x ] Alex peace [ ] Family [ x ] Nursing [ ] Case Management Electronically Signed by Sybil Byers MD on at 2152 RPT #:[id number] END OF REPORT 2022-07-04 07:04:00-00:00 [facility] ([facility] Nephrology Progress Note REPORT#:[id number] REPORT STATUS: Signed DATE:07/04/22 TIME: 0704 PATIENT: MESERET MOTTA UNIT #: [id number] ROOM/BED: [place] [address] : 56 AGE: 67 SEX: F ATTEND: Adonis Gaytan MD ADM AUTHOR: Jennifer Shelton MD * ALL edits or amendments must be made on the el Tunespeak/computer document * Subjective Chief complaint: Transferred for CABG HPI: Patient seen and evaluated, discussed with care team, 67-year-old female with history of end-stage renal d isease on chronic hemodialysis Sunday, and Sunday, diabetes mellitus, peripheral arterial disease and hypertension who was transferred to [facility] for CABG. Terrence nt initially presented to [facility] in [place] compl aining of shortness of breath. Underwent left heart cath which showed diffuse di sease and patient was transferred for evaluation for CABG. renal consult was requ ested for management of her end-stage renal disease/ hemodialysis. Patient reports: Yes: complaints. Comments: Patient seen and evaluated, HPI no change from i nitial, feels okay. Review of Systems Constitutional: Reports: fatigue. Denies: chills, fever. Skin: Denies: abrasion, bruising. Allergy/Immun: Denies: hives, itching. Eyes: Denies: redness, discharge. ENT: Denies: ear drainage, ear ringing. Respiratory: Denies: hemoptysis, SOB. Cardiovascular: Denies: chest pain. Objective General VS/I O: Vital Signs: Date Time Temp Pulse Resp B/P B/P Pulse O2 O2 F low FiO2 Mean Ox Delivery Rate 07/04 0339 36.4 82 17 162/81 108.2 98 07/03 2319 36.8 81 16 122/75 90.5 98 07/03 2000 Nasal 2 cannula 07/03 1914 36.8 83 15 125/70 88.4 97 07/03 1548 36.7 80 18 127/73 91.1 99 07/03 1053 37.0 74 19 135/77 96.1 99 Nasal cannula 07/03 0900 Nasal 2 cannula 07/03 0713 36.6 91 19 110/64 79.3 96 Nasal cannula 24 hour I O ending at 0700: 07/04 0700 07/03 1900 Intake Total 310.00 Output Total 0 Balance 310.00 Intake, IV 10.00 Intake, Oral 300 Number 0 Bowel Movements Number Voids 2 Output, Stool 0 PATIENT WEIGHT: Weight (lb): 245 Weight (oz): 9.52 Weight (kg): 111.13 Medications Active Meds + DC'd Last 24 Hrs Sennosides (Senna Lax 8.6 MG TABLET) 8.6 MG BID PO Polyethylene Glycol (MIRALAX) 17 GM DAILY PO Magnesium Hydroxide (MILK OF MAGNESIA) 30 ML BID PRN PRN PO Epoetin Vanesa-epbx (RETACRIT) 6,000 UNIT TuThSa@2 100 SUBQ Mupirocin (BACTROBAN 2% 22 GM OINTMENT) 1 APPLIC BID NASAL Miscellaneous Information (VANCOMYCIN PHARMACY T O DOSE) 1 EACH ASDIR IV (CKD) Lactulose (LACTULOSE) 20 GM DAILY PRN PRN PO Docusate Sodium (COLACE) 100 MG BID PO Sodium Chloride (OCEAN) 1 SPRAY Q2H PRN PRN NASA L Albuterol/Ipratropium (DUONEB) 3 ML RTQ4H PRN DC N NEB Ticagrelor (BRILINTA) 90 MG Q12HR PO Atropine Sulfate (ATROPINE SULFATE 0.1MG/ML SYR) 0.5 MG ASDIR PRN IV Sodium Chloride (SODIUM CHLORIDE 0.9%) 500 ML DIR PRN IV Sevelamer Carbonate (RENVELA) 3,200 MG C MEALS P O Calcitriol (RocaltroL) 0.5 MCG DAILY PO Midodrine (PROAMATINE) 5 MG 0900,1300,1700 PO Levothyroxine Sodium (LEVOTHYROXINE SODIUM) 150 MCG DAILY 0600 PO Buspirone HCl (BUSPAR) 5 MG BID PO Metoprolol Tartrate (LOPRESSOR) 12.5 MG Q12HR PO Pantoprazole (PROTONIX) 40 MG 0600,1800 PO Midodrine (PROAMATINE) 10 MG DIALYSIS-DOSE BEFOR E PO (CKD) Albumin Human (ALBUMINAR-25%) 12.5 GM ASDIR PRN IV Heparin Sodium (Porcine) (HEPARIN SODIUM) 3,000 UNIT ASDIR PRN DIALYSIS Lidocaine HCl (LIDOCAINE HCL/PF) 0.5 ML ASDIR P RN I-DERMAL (CKD) Mannitol (MANNITOL 25% 12.5GM/50ML) 12.5 GM ASDI R PRN IV Sodium Chloride (SODIUM CHLORIDE 0.9%) 2,000 ML ASDIR PRN IV Sodium Chloride (SODIUM CHLORIDE) 5 ML ASDIR PRN IV Sodium Chloride (SODIUM CHLORIDE) 10 ML ASDIR DC N IV Sodium Chloride (SODIUM CHLORIDE 0.9%) 250 ML DIR PRN IV Aspirin (ASPIRIN) 81 MG C BK PO Atorvastatin Calcium (LIPITOR) 40 MG 2100 PO Insulin Human Lispro (HUMALOG) 0 AC HS SUBQ Dextrose/Water (DEXTROSE 10% IN WATER) 125 ML DIR PRN IV (CKD) Dextrose/Water (DEXTROSE 10% IN WATER) 250 ML DIR PRN IV (CKD) Glucagon (GLUCAGON) 1 MG ASDIR PRN IM Melatonin (Melatonin) 3 MG BEDTIME PRN PRN PO Acetaminophen (TYLENOL) 650 MG Q4H PRN PRN PO Heparin Sodium (HEPARIN 5000 UNITS/ML) 5,000 UNI T ASDIR PRN IV Nitroglycerin (NITROSTAT) 0.4 MG Q5M PRN PRN SL Ondansetron HCl (ZOFRAN) 4 MG Q6H PRN PRN IV Physical Exam General appearance: alert, no acute distress Head/eyes: atraumatic, normocephalic ENT: normal nose Neck: non-tender, supple/no meningismus Cardiovascular: normal heart sounds, no rub Respiratory: aerating well, symmetric expansion Abdomen: non-tender, soft Genitourinary: no flank pain Extremities: pitting edema, non-tender Musculoskeletal: no CVA tenderness, no tendernes s Neuro/SURGICAL SPECIALIST: alert, normal speech Skin: dry, intact Ulcer: Type/cause: diabetic, arterial Location: foot (bilateral toes) Results Findings/Data: Laboratory Tests 07/01 1425 Blood Gas O2 Saturation (90 - 100 %) 97.7 ABG pH (7.35 - 7.45) 7.343 L ABG pCO2 (35.0 - 45 mmHg) 47.7 H ABG pO2 (80 - 100.0 mmHg) 105.9 H ABG HCO3 (22.0 - 26.0 MMOL/L) 25.9 ABG Total CO2 27.4 ABG Base Excess (-4.0 - 4.0 MMOL/L) 0.2 ABG Hematocrit (33.0 - 45.0 %) 29 L ABG Hemoglobin (11.0 - 15.0 G/DL) 10.0 L Sodium (134 - 147 mmol/L) 139 Potassium (3.4 - 5.0 mmol/L) 4.3 Chloride (100 - 108 mmol/L) 102 Ionized Calcium (1.12 - 1.32 MMOL/L) 1.24 Lactic Acid (0.9 - 1.7 mmol/l) 1.3 Laboratory Tests 07/04 07/03 07/03 07/03 07/03 0545 1913 1546 1050 0540 Chemistry Sodium (134 - 147 mEq/L) 142 Potassium (3.4 - 5.0 mEq/L) 4.0 Chloride (100 - 108 mEq/L) 103 Carbon Dioxide (21 - 33 mEq/l) 26 Anion Gap (0 - 20) 17 BUN (7 - 18 mg/dL) 24 H Creatinine (0.6 - 1.3 mg/dL) 4.5 H Glomerular Filtr Rate (80 - 90) 10.2 L Glucose (70 - 110 mg/dL) 177 H POC Glucose (70 - 110 MG/DL) 173 H 167 H 131 H 202 H Calcium (8.0 - 10.5 mg/dL) 9.2 07/03 07/02 07/02 07/02 07/02 0528 1902 1642 1123 0737 Chemistry POC Glucose (70 - 110 MG/DL) 170 H 154 H 134 H 156 H 222 H 07/02 07/01 07/01 07/01 07/01 0617 2116 1639 1430 1425 Chemistry Sodium (134 - 147 mEq/L) 141 140 Potassium (3.4 - 5.0 mEq/L) 4.0 4.4 Chloride (100 - 108 mEq/L) 102 104 Carbon Dioxide (21 - 33 mEq/l) 28 26 Anion Gap (0 - 20) 15 14 BUN (7 - 18 mg/dL) 17 31 H Creatinine (0.6 - 1.3 mg/dL) 3.4 H 5.0 H POC Creatinine (0.6 - 1.0 mg/dL) 5.3 H Glomerular Filtr Rate (80 - 90) 14.3 L 9.0 L Glucose (70 - 110 mg/dL) 162 H 191 H POC Glucose (70 - 110 MG/DL) 224 H 174 H POC Glucose (mg/dL) (70 - 110 MG/DL) 188 H Calcium (8.0 - 10.5 mg/dL) 9.0 9.1 Ionized Calcium Anthony (1.09 - 1.30 MMOL/L) 1.11 Phosphorus (2.5 - 4.9 MG/DL) 3.0 Magnesium (1.80 - 2.40 mg/dL) 1.89 07/01 07/01 1354 1027 Chemistry POC Glucose (70 - 110 MG/DL) 182 H 251 H Laboratory Tests 07/03 07/02 0540 0617 Hematology WBC (4.5 - 11.0 x10 3/uL) 8.8 8.6 RBC (3.54 - 5.02 x10 6/uL) 2.88 L 3.00 L Hgb (11.0 - 15.0 g/dL) 8.7 L 9.0 L Hct (33.0 - 45.0 %) 29.1 L 30.9 L MCV (81.0 - 99.0 fL) 101.0 H 103.0 H MCH (27.0 - 33.0 pg) 30.2 30.0 MCHC (33.0 - 37.0 g/dL) 29.9 L 29.1 L RDW (11.5 - 14.5 %) 14.9 H 15.0 H Plt Count (150 - 400 x10 3/uL) 203 187 MPV (7.0 - 9.0 fL) 9.5 H 9.4 H Neut % (Auto) (56.0 - 77.0 %) 82.1 H 80.9 H Lymph % (Auto) (14.0 - 32.0 %) 6.2 L 7.5 L Kerr % (Auto) (4.8 - 9.0 %) 8.5 8.4 Eos % (Auto) (0.3 - 3.7 %) 2.9 2.7 Baso % (Auto) (0.0 - 2.0 %) 0.1 0.1 Neut # (Auto) (2.0 - 7.6 x10 3/uL) 7.24 6.93 Lymph # (Auto) (1.0 - 3.8 x10 3/uL) 0.55 L 0.64 L Kerr # (Auto) (0.1 - 0.8 x10 3/uL) 0.75 0.72 Eos # (Auto) (0.0 - 0.2 x10 3/uL) 0.26 H 0.23 H Baso # (Auto) (0.0 - 0.2 x10 3/uL) 0.01 0.01 Abs Immat Gran (auto) (0.00 - 0.03 x10 3/uL) 0. 02 0.03 Add Manual Diff NO NO Immature Gran % (0.0 - 2.0 %) 0.2 0.4 Nucleated RBC % (0 - 0 %) 0.0 0.0 Nucleated RBCs # (Man) (0.0 - 0.1 x10 3/uL) 0.0 0 0.00 Laboratory Tests 07/04 0540 Toxicology Random Vancomycin (mcg/mL) 19.9 Laboratory Tests 07/04 07/03 07/03 07/03 0545 1913 1546 1050 Chemistry POC Glucose (70 - 110 MG/DL) 173 H 167 H 131 H 202 H Laboratory Tests 07/04 0540 Toxicology Random Vancomycin (mcg/mL) 19.9 Diagnosis, Assessment Plan Free Text A P: Patient seen and evaluated, discussed with care team, images and laboratories reviewed. End-stage renal disease on c hronic hemodialysis, Sunday, and Sunday, plan for hemodialysis today Status post left heart cath with multi-vessel co ronary artery disease, respiratory evaluation for CABG. Hypertension: Monitor blood pressure closely and adjust medications as needed Hyperlipidemia: Lipitor Diabetes mellitus: Insulin: Monitor blood sugar closely adjust medications as needed Anemia: We will start Epogen 4000 subcu 3 times a week Elevated alkaline phosphatase we will check PTH. 06/23/2022 plan for filtration today if her bloo d pressure allows, had hemodialysis yesterday. See showed hemoglobin 9. 1, platelet 136, blood count 12.1. We will increase Epoge n to 6000 subcu 3 times a week, PTH 660 we will add Rocaltrol 0.5 mcg p.o. daily, will add midodrine 5 mg p.o. 3 times daily to allow for ultrafiltration. 06/24/2022 laboratory for th is morning showed sodium 136, potassium 4.9, CO2 23, BUN 50, creatinine 5.8, phos phorus 7.1 we will add Renvela 2 p.o. with each meal , hemoglobin 9.3, platelet 152, blood count 13.3 , for hemodialysis today, 4 hours, 2K, ultrafiltration 3 to 4 L if tolerated , seen during HD. 06/25/2022 laboratory this m bartolo showed sodium 137, potassium 4.3, CO2 25, BUN 31, creatinine 4.5, alkaline phosphatase 272, st atus post ultrafiltration yesterday, 3.9 L removed, plan for dialysis in t he morning. 06/26/2022 laboratory this tiffany mcfarland showed sodium 137, potassium 4.4, CO2 22, BUN 39, creatinine 5.4, hemoglob in 9.8, platelet 145, blood count 14, phosphorus 6.8 we will increase Renvela to 4 p.o. with each meal, plan for hemodialysis today, 4 hours, 3K, ultrafiltration 3 to 4 L if tolerat ed 06/27/2022 status post peripheral angiogram/inte rvention yesterday, only had less than 2 hours of dialysis yesterday due to hypotension postprocedure, will plan on hemodialysis today, 4 hours, 3K, ultrafiltration 3 to 4 L if tolerated 06/28/2022 status post hemodialysis yesterday, w ill plan for ultrafiltration today 3 to 4 L if tolerated. Laboratory this manav barba showed sodium 136, potassium 4.2, CO2 22, BUN 22, creatinine 3.9, h emoglobin 8.9, platelet 149, blood count 10.8 06/29/2022 status post ultrafiltration yesterday 4 L removed, plan for hemodialysis today, 4 hours, 3K, ultrafiltration 3 to 4 L if tolerated. 06/30/2022 laboratory this tiffany mcfarland showed sodium 138, potassium 4.2, CO2 24, BUN 22, creatinine 4.1, hemoglobin 9.2, plat elet 195, white blood count 12, status post hemodialysis yesterday, 3 L removed. 07.01.22: Pt feels better. For HD today. will us e K2 [place]. I was then notified her RN that the pt has code blue in the radiology depertment. she is now alert and awake. will continue dialysis without any ch anges in the original order. 07.02.22: pt had code blue yesterday. Did not lo ose pulse. she thinks it was panic attack. had dialysis yesterday with net ne gative fo 3L. Feels better today. BP has been stable and So2 is 100%. will resume TTS schedule. Electrolyts and BMD are all well controlled. 07/03/2022 laboratory this morning showe d sodium 142, potassium 4, CO2 26, BUN 24, creatinine 4.5, hemoglobin 8.7, platelet 203 , blood count 8.8, plan for dialysis in the morning. 07/03/2022 for hemodialysis today, 4 hours, 3K, ultrafiltration 3 to 4 L if tolerated, seen during HD Consultants: cardiology, cardiovascular surgery, nephrology, wound care Electronically Signed by Jennifer Shelton MD on at 0955 [facility] #:[id number] END OF REPORT 2022-07-03 15:58:00-00:00 [facility] Progress Note REPORT#:[id number] REPORT STATUS: Signed DATE:07/03/22 TIME: 1558 PATIENT: MESERET MOTTA UNIT #: [id number] ROOM/BED: [place] [id number] : 56 AGE: 67 SEX: F ATTEND: Adonis Gaytan MD ADM AUTHOR: Chris Estevez MD * ALL edits or amendments must be made on the el Tunespeak/computer document * Subjective Chief complaint: SOB Comments: No events currently doing well No dizziness ROS: no nausea/vomitting or chest pain Objective General VS/I O: Last Documented: Result Date Time Pulse Ox 99 07/03 1548 B/P 127/73 07/03 1548 B/P Mean 91.1 07/03 1548 Temp 98.1 07/03 1548 Pulse 80 07/03 1548 Resp 18 07/03 1548 O2 Delivery Nasal cannula 07/03 1053 O2 Flow Rate 2 07/03 0900 FiO2 21 06/28 2342 24 hour I O ending at 0700: 07/02 1900 07/03 0700 Intake Total 1090.00 410.00 Output Total Balance 1090.00 410.00 Intake, IV 250.00 10.00 Intake, Oral 840 400 Number 1 Bowel Movements Number Voids 4 2 PATIENT WEIGHT: Weight (lb): 245 Weight (oz): 9.52 Weight (kg): 111.13 Physical Exam General appearance: chronically ill appearing Head/eyes: atraumatic, normocephalic, PERRL Neck: supple/no meningismus, no bruit/NL carotid s, no lymphadenopathy Cardiovascular: normal S1/S2, no rub, no gallop Respiratory/chest: decreased breath sounds, symmetric expansion, no distress, no tenderness Abdomen: soft, normal bowel sounds, no distentio n, no guarding Extremities: edema, no clubbing Neuro/SURGICAL SPECIALIST: alert, oriented X 3, no motor deficit s Skin: dry, normal color Ulcer: Type/cause: diabetic, arterial Location: foot (bilateral toes) Psychiatry: normal affect, no hallucinations Diagnosis, Assessment Plan Free Text A P: 1- Acute hypoxemic respiratory failure 2- Acute pulm edema 3- Cardiology disease status post PCI 4- Chronic diastolic heart failure HFpEF 5- End-stage renal disease on hemodialysis 6- Hypertension/DM2 7- Peripheral vascular disease/ischemic ulcer 8- Obesity ? Underlying JAMILAH - Continue nasal cannula O2, titrate to keep sat s above 94% - Hemodialysis with fluid removal per nephrology service - DuoNeb every 4 hours as needed - Continue to optimize heart failure management, blood pressure control - Wound care - Outpatient sleep study - DVT prophylaxis -Transferred briefly to ICU after suspected vaso vagal event now resolved Electronically Signed by Chris Estevez MD on 06/09 12/28 at 1558 RPT #:[id number] END OF REPORT 2022-07-03 13:39:00-00:00 [facility] ([facility]) Wound Care Progress Note REPORT#:[id number] REPORT STATUS: Signed DATE:07/03/22 TIME: 1339 PATIENT: MESERET MOTTA UNIT #: [id number] ROOM/BED: [place] [id number] : 56 AGE: 67 SEX: F ATTEND: Adonis Gaytan MD ADM AUTHOR: Sybil Byers MD * ALL edits or amendments must be made on the Summay/computer document * Subjective Chief complaint: Woundcare FU for foot, hand leg ulcers; less dariaan n Objective General Medications: Active Meds + DC'd Last 24 Hrs Sennosides (Senna Lax 8.6 MG TABLET) 8.6 MG BID PO Polyethylene Glycol (MIRALAX) 17 GM DAILY PO Magnesium Hydroxide (MILK OF MAGNESIA) 30 ML BID PRN PRN PO Epoetin Vanesa-epbx (RETACRIT) 6,000 UNIT TuThSa@2 100 SUBQ Mupirocin (BACTROBAN 2% 22 GM OINTMENT) 1 APPLIC BID NASAL Miscellaneous Information (VANCOMYCIN PHARMACY T O DOSE) 1 EACH ASDIR IV (CKD) Lactulose (LACTULOSE) 20 GM DAILY PRN PRN PO Docusate Sodium (COLACE) 100 MG BID PO Sodium Chloride (OCEAN) 1 SPRAY Q2H PRN PRN NASA L Albuterol/Ipratropium (DUONEB) 3 ML RTQ4H PRN DC N NEB Ticagrelor (BRILINTA) 90 MG Q12HR PO Atropine Sulfate (ATROPINE SULFATE 0.1MG/ML SYR) 0.5 MG ASDIR PRN IV Sodium Chloride (SODIUM CHLORIDE 0.9%) 500 ML DIR PRN IV Sevelamer Carbonate (RENVELA) 3,200 MG C MEALS P O Calcitriol (RocaltroL) 0.5 MCG DAILY PO Midodrine (PROAMATINE) 5 MG 0900,1300,1700 PO Levothyroxine Sodium (LEVOTHYROXINE SODIUM) 150 MCG DAILY 0600 PO Buspirone HCl (BUSPAR) 5 MG BID PO Metoprolol Tartrate (LOPRESSOR) 12.5 MG Q12HR PO Pantoprazole (PROTONIX) 40 MG 0600,1800 PO Midodrine (PROAMATINE) 10 MG DIALYSIS-DOSE BEFOR E PO (CKD) Albumin Human (ALBUMINAR-25%) 12.5 GM ASDIR PRN IV Heparin Sodium (Porcine) (HEPARIN SODIUM) 3,000 UNIT ASDIR PRN DIALYSIS Lidocaine HCl (LIDOCAINE HCL/PF) 0.5 ML ASDIR DC N I-DERMAL (CKD) Mannitol (MANNITOL 25% 12.5GM/50ML) 12.5 GM ASDI R PRN IV Sodium Chloride (SODIUM CHLORIDE 0.9%) 2,000 ML ASDIR PRN IV Sodium Chloride (SODIUM CHLORIDE) 5 ML ASDIR PRN IV Sodium Chloride (SODIUM CHLORIDE) 10 ML ASDIR DC N IV Sodium Chloride (SODIUM CHLORIDE 0.9%) 250 ML DIR PRN IV Aspirin (ASPIRIN) 81 MG C BK PO Atorvastatin Calcium (LIPITOR) 40 MG 2100 PO Insulin Human Lispro (HUMALOG) 0 AC HS SUBQ Dextrose/Water (DEXTROSE 10% IN WATER) 125 ML DIR PRN IV (CKD) Dextrose/Water (DEXTROSE 10% IN WATER) 250 ML DIR PRN IV (CKD) Glucagon (GLUCAGON) 1 MG ASDIR PRN IM Melatonin (Melatonin) 3 MG BEDTIME PRN PRN PO Acetaminophen (TYLENOL) 650 MG Q4H PRN PRN PO Heparin Sodium (HEPARIN 5000 UNITS/ML) 5,000 UNI T ASDIR PRN IV Nitroglycerin (NITROSTAT) 0.4 MG Q5M PRN PRN SL Ondansetron HCl (ZOFRAN) 4 MG Q6H PRN PRN IV Dietitian Nutrition assessment The data set between the solid lines has been im ported from the dietitian's assessment. BMI Calculated: 39.5 Nutrition related diagnosis: Nutrition diagnosis details: Nutrition problem: Nutrition etiology: Nutrition signs and symptoms: Nutrition prescription: Dietitian name: Assessment completed: Physical Exam General appearance: alert, awake Skin: Multiple PT ulcers abrasions on B hands, B feet, L>R, w erythema 0ver L dorsum foot L forefoot. Ulcers on dorsum toes, L >R, w erythema @ forefoot, some scabs coming off. LLE warm, RLE cold to ollie ch. Ulcer: Type/cause: diabetic, arterial Location: foot (bilateral toes) Diagnosis, Assessment Plan Free Text A P: Multiple ulcers, B feet, B hands , sp fall, w ar terial ulcers, B feet - improving; cotnBactroban BID to all ulce rs, leave open to air. Xeroform to LLE foot ulcers Wound cx- rare Enterococcus ; Severe PVD, BLE - sp angio LLE CAD- tx per cardiology DM ESRD on HD [ x] Optimize Nutrition and Glycemic Control [ x] Pressure relieving inte rventions (Low Air Mattress, Prevalon boot, Turn q2h ) [ x] Nursing to implement impaired skin integrit y care plan as per skin care protocol Coordinattion of care D/W [ ] Other MD's [x ] Alex peace [ ] Family [ x ] Nursing [ ] Case Management Consultants: cardiology, cardiovascular surgery, nephrology, wound care Electronically Signed by Sybil Byers MD on at 0933 RPT #:[id number] END OF REPORT 2022-07-03 11:10:00-00:00 [facility] Hospitalist Progress Note REPORT#:[id number] REPORT STATUS: Signed DATE:07/03/22 TIME: 1110 PATIENT: MESERET MOTTA UNIT #: [id number] ROOM/BED: [place] [id number] : 56 AGE: 67 SEX: F ATTEND: Adonis Gaytan MD ADM AUTHOR: Adonis Gaytan MD * ALL edits or amendments must be made on the el [employer]unes[employer]/computer document * Subjective Chief complaint: c/o of constipation. no cp. no sob. Objective General VS/I O: Vital Signs: Date Time Temp Pulse Resp B/P B/P Pulse O2 O2 F low FiO2 Mean Ox Delivery Rate 07/03 1053 98.6 74 19 135/77 96.1 99 Nasal cannula 07/03 0713 97.9 91 19 110/64 79.3 96 Nasal cannula 07/03 0417 98.2 85 15 128/72 91.1 95 07/02 2307 98.1 82 15 117/71 86.2 99 07/02 2000 Nasal 2 cannula 07/02 1858 98.2 81 15 121/71 87.8 99 07/02 1700 81 146/68 98 100 07/02 1600 98.1 81 23 139/70 93 100 Nasal 2 cannula 07/02 1600 81 23 139/70 99 100 07/02 1506 83 24 125/59 85 100 07/02 1400 76 19 116/56 80 100 07/02 1352 80 16 122/57 82 100 07/02 1200 97.8 78 29 131/89 103 100 Nasal 2 cannula 07/02 1200 78 29 131/89 103 100 24 hour I O ending at 0700: 07/03 0700 07/02 1900 Intake Total 410.00 1090.00 Output Total Balance 410.00 1090.00 Intake, IV 10.00 250.00 Intake, Oral 400 840 Number 1 Bowel Movements Number Voids 2 4 PATIENT WEIGHT: Weight (lb): 245 Weight (oz): 9.52 Weight (kg): 111.13 Physical Exam General appearance: alert, awake, oriented Head/Eyes: atraumatic, clear cornea, EOMI, kristopher l conjunctiva/sclera, PERRLA ENT: moist mucosal membranes Neck: supple/no meningismus, no JVD Cardiovascular: normal heart sounds, regular rat e rhythm, no murmur Respiratory: aerating well, clear to auscultatio n, symmetric expansion Abdomen: non-tender, normal bowel sounds, soft, no distention Extremities: edema, moves all Neuro/SURGICAL SPECIALIST: alert, oriented X 3, normal speech, n o motor deficits Ulcer: Type/cause: diabetic, arterial Location: foot (bilateral toes) Psychiatry: normal affect Results Radiology data: Laboratory Tests 07/03/22 0540: [Embedded Image Not Available] 07/02/22 0617: [Embedded Image Not Available] 07/01/22 1430: [Embedded Image Not Available] Current Medications Sig/Enedina Start time Last Medication Dose Route Stop Time Status Admin Magnesium Hydroxide 30 ML BID PRN PRN 07/02 1345 AC 07/02 PO 08/01 1344 1448 Epoetin Vanesa-epbx 6,000 UNIT TuThSa@2100 07/01 2 300 AC 07/02 SUBQ 07/31 2259 0052 Mupirocin 1 APPLIC BID 07/01 2100 AC 07/03 NASAL 07/06 0901 0839 Miscellaneous 1 EACH ASDIR 06/30 1300 CKD Information IV 07/30 1259 Lactulose 20 GM DAILY PRN PRN 06/30 1045 AC 06/09 6 PO 07/30 1044 0125 Docusate Sodium 100 MG BID 06/30 0900 AC 07/03 PO 07/30 0859 0838 Sodium Chloride 1 SPRAY Q2H PRN PRN 06/29 1015 A C 06/29 NASAL 07/29 1014 1724 Albuterol/Ipratropiu 3 ML RTQ4H PRN PRN 06/28 12 15 AC m NEB 07/28 1214 Ticagrelor 90 MG Q12HR 06/28 1115 AC 07/03 PO 07/28 1114 0838 Hydrocodone Bitart/ 1 TAB Q6H PRN PRN 06/27 1645 DC 06/30 Acetaminophen PO 07/02 1644 0722 Hydrocodone Bitart/ 1 TAB Q6H PRN PRN 06/27 1645 DC 07/01 Acetaminophen PO 07/02 1644 2056 Atropine Sulfate 0.5 MG ASDIR PRN 06/27 1600 AC IV 07/27 1559 Sodium Chloride 500 ML ASDIR PRN 06/27 1600 AC IV 07/27 1559 Sevelamer Carbonate 3,200 MG C MEALS 06/26 0800 AC 07/03 PO 07/26 0759 0837 Calcitriol 0.5 MCG DAILY 06/23 0900 AC 07/03 PO 07/23 0859 0838 Midodrine 5 MG 0900,1300,1700 06/23 0900 AC 06/09 6 PO 07/23 0859 0838 Levothyroxine Sodium 150 MCG DAILY 0600 06/23 06 00 AC 07/02 PO 07/23 0559 0603 Buspirone HCl 5 MG BID 06/22 2100 AC 07/03 PO 07/22 2058 0838 Metoprolol Tartrate 12.5 MG Q12HR 06/22 2100 AC 07/03 PO 07/22 2058 0838 Pantoprazole 40 MG 0600,1800 06/22 1800 AC 07/02 PO 07/22 175 175 Midodrine 10 MG DIALYSIS-DOSE 06/22 1545 CKD BEFORE PO 07/22 1544 1856 Albumin Human 12.5 GM ASDIR PRN 06/22 1530 AC IV 07/23 1529 1909 Heparin Sodium 3,000 UNIT ASDIR PRN 06/22 1530 A C 07/01 (Porcine) DIALYSIS 07/22 1529 1613 Lidocaine HCl 0.5 ML ASDIR PRN 06/22 1530 CKD I-DERMAL 07/23 1529 Mannitol 12.5 GM ASDIR PRN 06/22 1530 AC IV 07/23 1529 Sodium Chloride 2,000 ML ASDIR PRN 06/22 1530 AC 07/01 IV 07/23 1529 1500 Sodium Chloride 5 ML ASDIR PRN 06/22 1530 AC IV 07/22 1529 Sodium Chloride 10 ML ASDIR PRN 06/22 1530 AC IV 07/22 1529 1616 Sodium Chloride 250 ML ASDIR PRN 06/22 1530 AC IV 07/22 1529 Aspirin 81 MG C BK 06/22 0800 AC 07/03 PO 07/22 075 0837 Atorvastatin Calcium 40 MG 2100 06/21 2100 AC PO 07/21 2058 2008 Insulin Human Lispro 0 AC HS 06/21 2100 AC 07/02 SUBQ 07/21 205 1234 Dextrose/Water 125 ML ASDIR PRN 06/21 1900 CKD IV 07/21 185 Dextrose/Water 250 ML ASDIR PRN 12/14 1900 CKD IV 07/21 1858 Glucagon 1 MG ASDIR PRN 06/21 1900 AC IM 07/21 1858 Melatonin 3 MG BEDTIME PRN PRN 06/21 1900 AC PO 07/21 Acetaminophen 650 MG Q4H PRN PRN 06/21 1730 AC 1 09/02 PO 07/21 172 2359 Heparin Sodium 5,000 UNIT ASDIR PRN 06/21 1730 A C 06/22 IV 07/21 172 1449 Nitroglycerin 0.4 MG Q5M PRN PRN 06/21 1730 AC SL 07/21 172 Ondansetron HCl 4 MG Q6H PRN PRN 06/21 1730 AC 09/02 IV 07/21 Laboratory Tests: 07/03 07/03 07/02 07/02 07/02 0540 0528 1902 1642 1123 Chemistry Sodium (134 - 147 mEq/L) 142 Potassium (3.4 - 5.0 mEq/L) 4.0 Chloride (100 - 108 mEq/L) 103 Carbon Dioxide (21 - 33 mEq/l) 26 Anion Gap (0 - 20) 17 BUN (7 - 18 mg/dL) 24 H Creatinine (0.6 - 1.3 mg/dL) 4.5 H Glomerular Filtr Rate (80 - 90) 10.2 L Glucose (70 - 110 mg/dL) 177 H POC Glucose (70 - 110 MG/DL) 170 H 154 H 134 H 156 H Calcium (8.0 - 10.5 mg/dL) 9.2 Hematology WBC (4.5 - 11.0 x10 3/uL) 8.8 RBC (3.54 - 5.02 x10 6/uL) 2.88 L Hgb (11.0 - 15.0 g/dL) 8.7 L Hct (33.0 - 45.0 %) 29.1 L MCV (81.0 - 99.0 fL) 101.0 H MCH (27.0 - 33.0 pg) 30.2 MCHC (33.0 - 37.0 g/dL) 29.9 L RDW (11.5 - 14.5 %) 14.9 H Plt Count (150 - 400 x10 3/uL) 203 MPV (7.0 - 9.0 fL) 9.5 H Neut % (Auto) (56.0 - 77.0 %) 82.1 H Lymph % (Auto) (14.0 - 32.0 %) 6.2 L Kerr % (Auto) (4.8 - 9.0 %) 8.5 Eos % (Auto) (0.3 - 3.7 %) 2.9 Baso % (Auto) (0.0 - 2.0 %) 0.1 Neut # (Auto) (2.0 - 7.6 x10 3/uL) 7.24 Lymph # (Auto) (1.0 - 3.8 x10 3/uL) 0.55 L Kerr # (Auto) (0.1 - 0.8 x10 3/uL) 0.75 Eos # (Auto) (0.0 - 0.2 x10 3/uL) 0.26 H Baso # (Auto) (0.0 - 0.2 x10 3/uL) 0.01 Abs Immat Gran (auto) (0.00 - 0.03 0.02 x10 3/uL) Add Manual Diff NO Immature Gran % (0.0 - 2.0 %) 0.2 Nucleated RBC % (0 - 0 %) 0.0 Nucleated RBCs # (Man) (0.0 - 0.1 0.00 x10 3/uL) Diagnosis, Assessment Plan Consultants: cardiology, cardiovascular surgery, nephrology, wound care Free Text DxA P Notes Free text DxA P notes: Assessment and plans: Three-vessel coronary artery disease CV surgery following. Dopplers, alexandro duplex were ordered patient is off the heparin drip on aspirin, Brilinta, atorvastatin, metoprolol -echo from OSH LVEF 50% cardiology seen -S/p PCI to left circumflex 06/27 Patient needs staged PCI to mid and proximal LAD in 1 to 2 weeks as outpatient Constipation -miralex. vaginal bleeding- fibroids 07/01 - bleeding for 2 weeks and had no vaginal bleeding for 15 years...ask director [employer] to see and check pelvic ultrasound. 07/02 - usg shows fibroids and director [employer] wants outpt f /u for endometrial bx. Severe PAD/toe ulcer: Status post MORPHOLOGIST and atherec cheri with CSI followed by MORPHOLOGIST with stable balloon on left anterior and posterior tibial artery, for r ight anterior and posterior tibial artery Will need staged intervention as p er cardiology. 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 Plan for peripheral angiogram in the morning as per c ardiology 06/29 Acute respiratory failure with hypoxemia Patient presented with supplemental nasal cannu la oxygen -Pulmonary edema, pleural effusion on CT chest, no PE Patient needs to be evaluated for home oxygen o nce patient is medically cleared for discharge On 2 L oxygen via nasal cannula 06/29 DuoNeb treatment Pulmonary consulted -Continue to optimize heart failure management, blood pressure control and Outpatient sleep study Leukocytosis: -CT chest result done -Afebrile -Patient has multiple ulcers in hands and feet. Wound cx growing ent fecalis, rocephin switched to unasyn 07/04 -blood culture 06/26 (was not ordered on admissi on) no growth till now 06/30- WBC increasing on unasyn. consult ID. ran prieto? 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 Pat ient lives alone. 06/28 Elevated LFTs Secondary to hepatic congestion Monitor LFTs Type 2 diabetes mellitus on insulin sliding scale Diabetic diet Hypothyroidism Resume Synthroid Anemia of chronic disease -Transfuse for Hb <7 -No bleeding hypotension on midodrine on empiric IV CTX check labs in am SCD for DVT prophylaxis. Disposition: S/p PCI and 1 stent placement in le ft circumflex, plan for peripheral angiogram to right anterior and poste rior tibial artery. On 2 L oxygen via nasal cannula. On Unasyn. Patient ricki es alone. Case management consulted for inpatient rehab. [facility] 06/30- WBC worsening. ID consulted. awaiting tra nsfer to rehab. 07/01- WBC better. ABX changed from unas yn to VANC. pt c/o DUB. 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 07/02- Possible panic attack yesterday...to CCU..transfer back to telemetry. d/w bedside nurse. 07/03 - miralex for constipation. Quality: Gen Med Crit Care VTE Prophylaxis VTE prophylaxis initiated: yes Current Medications Current medication review: I attest that the foregoing medication list in t medical record is true, accurate, and complete to the best of my knowled ge. Electronically Signed by Adonis Gaytan MD on 06/09 12/28 at 1112 RPT #:[id number] END OF REPORT 2022-07-03 10:11:00-00:00 [facility] Cardiology Progress Note REPORT#:[id number] REPORT STATUS: Signed DATE:07/03/22 TIME: 1011 PATIENT: MESERET MOTTA UNIT #: [id number] ROOM/BED: [place] [phone] : 56 AGE: 67 SEX: F ATTEND: Adonis Gaytan MD ADM AUTHOR: Brian Alfred MD * ALL edits or amendments must be made on the [employer]/computer document * Subjective Chief complaint: feeling better Objective General VS/I O: 24 hour I O ending at 0700: 07/03 0700 07/02 1900 Intake Total 410.00 1090.00 Output Total Balance 410.00 1090.00 Intake, IV 10.00 250.00 Intake, Oral 400 840 Number 1 Bowel Movements Number Voids 2 4 Vital Signs: Date Time Temp Pulse Resp B/P B/P Pulse O2 O2 F low FiO2 Mean Ox Delivery Rate 07/03 0713 97.9 91 19 110/64 79.3 96 Nasal cannula 07/03 0417 98.2 85 15 128/72 91.1 95 07/02 2307 98.1 82 15 117/71 86.2 99 07/02 2000 Nasal 2 cannula 07/02 1858 98.2 81 15 121/71 87.8 99 07/02 1700 81 146/68 98 100 07/02 1600 98.1 81 23 139/70 93 100 Nasal 2 cannula 07/02 1600 81 23 139/70 99 100 07/02 1506 83 24 125/59 85 100 07/02 1400 76 19 116/56 80 100 07/02 1352 80 16 122/57 82 100 07/02 1200 97.8 78 29 131/89 103 100 Nasal 2 cannula 07/02 1200 78 29 131/89 103 100 07/02 1101 73 22 151/67 97 100 PATIENT WEIGHT: Weight (lb): 245 Weight (oz): 9.52 Weight (kg): 111.13 Medications: Active Meds + DC'd Last 24 Hrs Magnesium Hydroxide (MILK OF MAGNESIA) 30 ML BID PRN PRN PO Epoetin Vanesa-epbx (RETACRIT) 6,000 UNIT TuThSa@2 100 SUBQ Mupirocin (BACTROBAN 2% 22 GM OINTMENT) 1 APPLIC BID NASAL Miscellaneous Information (VANCOMYCIN PHARMACY T O DOSE) 1 EACH ASDIR IV (CKD) Lactulose (LACTULOSE) 20 GM DAILY PRN PRN PO Docusate Sodium (COLACE) 100 MG BID PO Sodium Chloride (OCEAN) 1 SPRAY Q2H PRN PRN NASA L Albuterol/Ipratropium (DUONEB) 3 ML RTQ4H PRN DC N NEB Ticagrelor (BRILINTA) 90 MG Q12HR PO Hydrocodone Bitart/Acetaminophen (NORCO 5/325) 1 TAB Q6H PRN PRN PO (DC) Hydrocodone Bitart/Acetaminophen (NORCO 10/325) 1 TAB Q6H PRN PRN PO (DC ) Atropine Sulfate (ATROPINE SULFATE 0.1MG/ML SYR) 0.5 MG ASDIR PRN IV Sodium Chloride (SODIUM CHLORIDE 0.9%) 500 ML DIR PRN IV Sevelamer Carbonate (RENVELA) 3,200 MG C MEALS P O Calcitriol (RocaltroL) 0.5 MCG DAILY PO Midodrine (PROAMATINE) 5 MG 0900,1300,1700 PO Levothyroxine Sodium (LEVOTHYROXINE SODIUM) 150 MCG DAILY 0600 PO Buspirone HCl (BUSPAR) 5 MG BID PO Metoprolol Tartrate (LOPRESSOR) 12.5 MG Q12HR PO Pantoprazole (PROTONIX) 40 MG 0600,1800 PO Midodrine (PROAMATINE) 10 MG DIALYSIS-DOSE BEFOR E PO (CKD) Albumin Human (ALBUMINAR-25%) 12.5 GM ASDIR PRN IV Heparin Sodium (Porcine) (HEPARIN SODIUM) 3,000 UNIT ASDIR PRN DIALYSIS Lidocaine HCl (LIDOCAINE HCL/PF) 0.5 ML ASDIR DC N I-DERMAL (CKD) Mannitol (MANNITOL 25% 12.5GM/50ML) 12.5 GM ASDI R PRN IV Sodium Chloride (SODIUM CHLORIDE 0.9%) 2,000 ML ASDIR PRN IV Sodium Chloride (SODIUM CHLORIDE) 5 ML ASDIR PRN IV Sodium Chloride (SODIUM CHLORIDE) 10 ML ASDIR DC N IV Sodium Chloride (SODIUM CHLORIDE 0.9%) 250 ML DIR PRN IV Aspirin (ASPIRIN) 81 MG C BK PO Atorvastatin Calcium (LIPITOR) 40 MG 2100 PO Insulin Human Lispro (HUMALOG) 0 AC HS SUBQ Dextrose/Water (DEXTROSE 10% IN WATER) 125 ML DIR PRN IV (CKD) Dextrose/Water (DEXTROSE 10% IN WATER) 250 ML DIR PRN IV (CKD) Glucagon (GLUCAGON) 1 MG ASDIR PRN IM Melatonin (Melatonin) 3 MG BEDTIME PRN PRN PO Acetaminophen (TYLENOL) 650 MG Q4H PRN PRN PO Heparin Sodium (HEPARIN 5000 UNITS/ML) 5,000 UNI T ASDIR PRN IV Nitroglycerin (NITROSTAT) 0.4 MG Q5M PRN PRN SL Ondansetron HCl (ZOFRAN) 4 MG Q6H PRN PRN IV Physical Exam General appearance: alert, awake, oriented Neck: non-tender, no JVD Cardiovascular: CV assessment: regular rate and rhythm Respiratory: decreased breath sounds, on oxygen, no distress Abdomen: non-tender, obese Genitourinary: no flank pain, no urinary cathete r Lower extremity: LE assessment: edema, abnormal pedal pulse Musculoskeletal: normal inspection Neuro/SURGICAL SPECIALIST: alert, oriented X 3, normal speech Skin: scabs lower extremities Ulcer: Type/cause: diabetic, arterial Location: foot (bilateral toes) Psychiatry: normal affect, normal mood Results Findings/Data: Laboratory Tests 07/03 07/03 07/02 07/02 07/02 0540 0528 1902 1642 1123 Chemistry Sodium (134 - 147 mEq/L) 142 Potassium (3.4 - 5.0 mEq/L) 4.0 Chloride (100 - 108 mEq/L) 103 Carbon Dioxide (21 - 33 mEq/l) 26 Anion Gap (0 - 20) 17 BUN (7 - 18 mg/dL) 24 H Creatinine (0.6 - 1.3 mg/dL) 4.5 H Glomerular Filtr Rate (80 - 90) 10.2 L Glucose (70 - 110 mg/dL) 177 H POC Glucose (70 - 110 MG/DL) 170 H 154 H 134 H 156 H Calcium (8.0 - 10.5 mg/dL) 9.2 Laboratory Tests 07/03 0540 Hematology WBC (4.5 - 11.0 x10 3/uL) 8.8 RBC (3.54 - 5.02 x10 6/uL) 2.88 L Hgb (11.0 - 15.0 g/dL) 8.7 L Hct (33.0 - 45.0 %) 29.1 L MCV (81.0 - 99.0 fL) 101.0 H MCH (27.0 - 33.0 pg) 30.2 MCHC (33.0 - 37.0 g/dL) 29.9 L RDW (11.5 - 14.5 %) 14.9 H Plt Count (150 - 400 x10 3/uL) 203 MPV (7.0 - 9.0 fL) 9.5 H Neut % (Auto) (56.0 - 77.0 %) 82.1 H Lymph % (Auto) (14.0 - 32.0 %) 6.2 L Kerr % (Auto) (4.8 - 9.0 %) 8.5 Eos % (Auto) (0.3 - 3.7 %) 2.9 Baso % (Auto) (0.0 - 2.0 %) 0.1 Neut # (Auto) (2.0 - 7.6 x10 3/uL) 7.24 Lymph # (Auto) (1.0 - 3.8 x10 3/uL) 0.55 L Kerr # (Auto) (0.1 - 0.8 x10 3/uL) 0.75 Eos # (Auto) (0.0 - 0.2 x10 3/uL) 0.26 H Baso # (Auto) (0.0 - 0.2 x10 3/uL) 0.01 Abs Immat Gran (auto) (0.00 - 0.03 x10 3/uL) 0. 02 Add Manual Diff NO Immature Gran % (0.0 - 2.0 %) 0.2 Nucleated RBC % (0 - 0 %) 0.0 Nucleated RBCs # (Man) (0.0 - 0.1 x10 3/uL) 0.0 0 Results: labs reviewed, vital signs reviewed, vi verónica signs stable Diagnosis, Assessment Plan Consultants: cardiology, cardiovascular surgery, nephrology, wound care Free Text DxA P Notes Free Text DxA P Notes: 67 YO female with PMHx of HTN, DM, CHF, ESRD on HD who initially presented at [facility] with SOB and fatigue. Sh e was treated for NSTEMI and acute CHF exacerbation. 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 She is transferred her for CABG evaluation but deemed too high risk for CABG with STS risk score of 17%. 1. NSTEMI/Multivessel CAD 06/27/22: s/p PCI to LCx wit h 2.25 x 20 mm and post dilated with 2.5 NC balloon continue ASA, Brilinta, BB, and statin need staged PCI to mid and proximal LAD in 1-2 w eeks stable 2. Acute on chronic Diastolic CHF volume management per nephrology echo from OSH LVEF 50% 3. ESRD on HD per nephrology 4. Diabetes mellitus per admitting team 5. Hypertension -> hypotension on midodrine continue low-dose beta-susan for CAD bp now stable 6. Toe ulcers/severe PAD 06/26/21: s/p peripheral angiogram and MORPHOLOGIST to th e anterior tibial artery ORE ROASTER of right anterior/posterior tibial artery, n eed staged intervention on a later date PT/OT- Rehab eval ongoing 07/01/22: -STABLE CARDIAC STATUS, CAD/PCI -STABLE PAD -ON MIDODRIN FOR ORTHOSTATIC HYPOTENSION -CANNOT TOLERATE RAAS AGENT (HYPOTENSION) -ON LOW DOSE BB -ON DAP -ON STATIN -ECHO 06-22-22, SMALL TO MOD PERICARDIAL EFFUSIO N, (ESRD ON HD), EF 60-65% -FOLLOW -CARDIAC REHAB EVALUATION IN PROGRESS 07/02/22; -STABLE CARDIAC STATUS -CARDIAC REHAB 07/03/22: -SEVERE PAD/FOOT ULCERS, ID FOLLOWING -STABLE DIAST CHF -ESRD ON HD -REHAB EVELUATION IN PROGRESS Electronically Signed by Brian Alfred MD on 1 09/04/21 at 0754 RPT #:[id number] END OF REPORT 2022-07-03 09:30:00-00:00 [facility] ([facility]) Infectious Dis. Progress Note REPORT#:[id number] REPORT STATUS: Signed DATE:07/03/22 TIME: 929 PATIENT: MESERET MOTTA UNIT #: [id number] [place] [facility] [place] AGE: 67 SEX: F ATTEND: Adonis Gaytan MD ADM AUTHOR: Kasey Mendez MD * ALL edits or amendments must be made on the el ectronic/computer document * Subjective HPI: 67 yr old with esrd on hd admitted after multiple falls and left foot vascular ulcers sec to severe PVD. Patient reports: No: complaints. Objective General VS/I O: Vital Signs Date Temp Pulse Resp B/P B/P Mean Pulse Ox FiO 2 07/02-07/03 97.9-98.6 74-91 - 110-146/59-77 79.3-99 95-100 Last Documented: Result Date Time Pulse Ox 99 07/03 1053 B/P 135/77 07/03 1053 B/P Mean 96.1 07/03 1053 O2 Delivery Nasal cannula 07/03 1053 Temp 98.6 07/03 1053 Pulse 74 07/03 1053 Resp 19 07/03 1053 O2 Flow Rate 2 07/02 2000 FiO2 21 06/28 2342 Vital Signs: Date Time Temp Pulse Resp B/P B/P Pulse O2 O2 F low FiO2 Mean Ox Delivery Rate 07/03 1053 98.6 74 19 135/77 96.1 99 Nasal cannula 07/03 0713 97.9 91 19 110/64 79.3 96 Nasal cannula 07/03 0417 98.2 85 15 128/72 91.1 95 07/02 2307 98.1 82 15 117/71 86.2 99 07/02 2000 Nasal 2 cannula 07/02 1858 98.2 81 15 121/71 87.8 99 07/02 1700 81 146/68 98 100 07/02 1600 98.1 81 23 139/70 93 100 Nasal 2 cannula 07/02 1600 81 23 139/70 99 100 07/02 1506 83 24 125/59 85 100 24 hour I O ending at 0700: 07/03 0700 07/02 1900 Intake Total 410.00 1090.00 Output Total Balance 410.00 1090.00 Intake, IV 10.00 250.00 Intake, Oral 400 840 Number 1 Bowel Movements Number Voids 2 4 PATIENT WEIGHT: Weight (lb): 245 Weight (oz): 9.52 Weight (kg): 111.13 Physical Exam General appearance: alert, awake, oriented Wound/incision: Location: jarrett left more than right foot ulcers, erythema Site condition: dressing clean dry, dressing in tact Head/Eyes: clear cornea, PERRL ENT: moist mucosal membranes Neck: full range of motion, no JVD Cardiovascular: normal heart sounds Respiratory: rhonchi Abdomen: no CVA tenderness, no distention, no gu arding Genitourinary: no flank pain, no urinary cathete r Extremities: abnormal capill dre refill, abnormal temperature, edema, moves all, normal motor function, no clubbing, no contractu re, no cyanosis Skin: erythema, dry Ulcer: Type/cause: diabetic, arterial Location: foot (bilateral toes) Results Findings/Data: Laboratory Tests 07/03 07/03 07/03 07/02 07/02 1050 0540 0528 1902 1642 Chemistry Sodium (134 - 147 mEq/L) 142 Potassium (3.4 - 5.0 mEq/L) 4.0 Chloride (100 - 108 mEq/L) 103 Carbon Dioxide (21 - 33 mEq/l) 26 Anion Gap (0 - 20) 17 BUN (7 - 18 mg/dL) 24 H Creatinine (0.6 - 1.3 mg/dL) 4.5 H Glomerular Filtr Rate (80 - 90) 10.2 L Glucose (70 - 110 mg/dL) 177 H POC Glucose (70 - 110 MG/DL) 202 H 170 H 154 H 134 H Calcium (8.0 - 10.5 mg/dL) 9.2 Laboratory Tests 07/03 0540 Hematology WBC (4.5 - 11.0 x10 3/uL) 8.8 RBC (3.54 - 5.02 x10 6/uL) 2.88 L Hgb (11.0 - 15.0 g/dL) 8.7 L Hct (33.0 - 45.0 %) 29.1 L MCV (81.0 - 99.0 fL) 101.0 H MCH (27.0 - 33.0 pg) 30.2 MCHC (33.0 - 37.0 g/dL) 29.9 L RDW (11.5 - 14.5 %) 14.9 H Plt Count (150 - 400 x10 3/uL) 203 MPV (7.0 - 9.0 fL) 9.5 H Neut % (Auto) (56.0 - 77.0 %) 82.1 H Lymph % (Auto) (14.0 - 32.0 %) 6.2 L Kerr % (Auto) (4.8 - 9.0 %) 8.5 Eos % (Auto) (0.3 - 3.7 %) 2.9 Baso % (Auto) (0.0 - 2.0 %) 0.1 Neut # (Auto) (2.0 - 7.6 x10 3/uL) 7.24 Lymph # (Auto) (1.0 - 3.8 x10 3/uL) 0.55 L Kerr # (Auto) (0.1 - 0.8 x10 3/uL) 0.75 Eos # (Auto) (0.0 - 0.2 x10 3/uL) 0.26 H Baso # (Auto) (0.0 - 0.2 x10 3/uL) 0.01 Abs Immat Gran (auto) (0.00 - 0.03 x10 3/uL) 0. 02 Add Manual Diff NO Immature Gran % (0.0 - 2.0 %) 0.2 Nucleated RBC % (0 - 0 %) 0.0 Nucleated RBCs # (Man) (0.0 - 0.1 x10 3/uL) 0. 00 Laboratory Tests 07/03/22 0540: [Embedded Image Not Available] 07/02/22 0617: [Embedded Image Not Available] Microbiology: 06/30 1255 URINE: Urine Culture - ORD 06/26 1900 BLOOD: Blood Culture - COMP Laboratory Tests Test Result Date Time Chemistry BUN (7 - 18 mg/dL) 24 H 07/03 0540 Creatinine (0.6 - 1.3 mg/dL) 4.5 H 07/03 0540 Hematology WBC (4.5 - 11.0 x10 3/uL) 8.8 07/03 0540 Microbiology Date/Time Procedure - Status Source Growth 06/30 125 Urine Culture - ORD URINE 06/26 1900 Blood Culture - COMP BLOOD Active Meds + DC'd Last 24 Hrs Sennosides (Senna Lax 8.6 MG TABLET) 8.6 MG BID PO Polyethylene Glycol (MIRALAX) 17 GM DAILY PO Magnesium Hydroxide (MILK OF MAGNESIA) 30 ML BID PRN PRN PO Epoetin Vanesa-epbx (RETACRIT) 6,000 UNIT TuThSa@2 100 SUBQ Mupirocin (BACTROBAN 2% 22 GM OINTMENT) 1 APPLIC BID NASAL Miscellaneous Information (VANCOMYCIN PHARMACY T O DOSE) 1 EACH ASDIR IV (CKD) Lactulose (LACTULOSE) 20 GM DAILY PRN PRN PO Docusate Sodium (COLACE) 100 MG BID PO Sodium Chloride (OCEAN) 1 SPRAY Q2H PRN PRN NASA L Albuterol/Ipratropium (DUONEB) 3 ML RTQ4H PRN DC N NEB Ticagrelor (BRILINTA) 90 MG Q12HR PO Hydrocodone Bitart/Acetaminophen (NORCO 5/325) 1 TAB Q6H PRN PRN PO (DC) Hydrocodone Bitart/Acetaminophen (NORCO 10/325) 1 TAB Q6H PRN PRN PO (DC ) Atropine Sulfate (ATROPINE SULFATE 0.1MG/ML SYR) 0.5 MG ASDIR PRN IV Sodium Chloride (SODIUM CHLORIDE 0.9%) 500 ML DIR PRN IV Sevelamer Carbonate (RENVELA) 3,200 MG C MEALS P O Calcitriol (RocaltroL) 0.5 MCG DAILY PO Midodrine (PROAMATINE) 5 MG 0900,1300,1700 PO Levothyroxine Sodium (LEVOTHYROXINE SODIUM) 150 MCG DAILY 0600 PO Buspirone HCl (BUSPAR) 5 MG BID PO Metoprolol Tartrate (LOPRESSOR) 12.5 MG Q12HR PO Pantoprazole (PROTONIX) 40 MG 0600,1800 PO Midodrine (PROAMATINE) 10 MG DIALYSIS-DOSE BEFOR E PO (CKD) Albumin Human (ALBUMINAR-25%) 12.5 GM ASDIR PRN IV Heparin Sodium (Porcine) (HEPARIN SODIUM) 3,000 UNIT ASDIR PRN DIALYSIS Lidocaine HCl (LIDOCAINE HCL/PF) 0.5 ML ASDIR DC N I-DERMAL (CKD) Mannitol (MANNITOL 25% 12.5GM/50ML) 12.5 GM ASDI R PRN IV Sodium Chloride (SODIUM CHLORIDE 0.9%) 2,000 ML ASDIR PRN IV Sodium Chloride (SODIUM CHLORIDE) 5 ML ASDIR PRN IV Sodium Chloride (SODIUM CHLORIDE) 10 ML ASDIR DC N IV Sodium Chloride (SODIUM CHLORIDE 0.9%) 250 ML DIR PRN IV Aspirin (ASPIRIN) 81 MG C BK PO Atorvastatin Calcium (LIPITOR) 40 MG 2100 PO Insulin Human Lispro (HUMALOG) 0 AC HS SUBQ Dextrose/Water (DEXTROSE 10% IN WATER) 125 ML DIR PRN IV (CKD) Dextrose/Water (DEXTROSE 10% IN WATER) 250 ML DIR PRN IV (CKD) Glucagon (GLUCAGON) 1 MG ASDIR PRN IM Melatonin (Melatonin) 3 MG BEDTIME PRN PRN PO Acetaminophen (TYLENOL) 650 MG Q4H PRN PRN PO Heparin Sodium (HEPARIN 5000 UNITS/ML) 5,000 UNI T ASDIR PRN IV Nitroglycerin (NITROSTAT) 0.4 MG Q5M PRN PRN SL Ondansetron HCl (ZOFRAN) 4 MG Q6H PRN PRN IV Diagnosis, Assessment Plan Free Text A P: 1. Severe PVd: vascular ulce rs of the left foot : infection with e. fecalis: s/p vascular intrvention. on vanc post hd day 4 out of 7. cont. 2. Leucocytosis: multifactor ial sec to foot ulcers infection, leukemoid reaction to fluid overload. 3. ESRD: on hd. 4. Dmii: with DFU: on insulin 5. diastolic heart failure 6. hypertension Consultants: cardiology, cardiovascular surgery, nephrology, wound care at 1349 RPT #:[id number] END OF REPORT 2022-07-03 09:15:00-00:00 [facility] Prog.Note-Vancomycin REPORT#:[id number] REPORT STATUS: Signed DATE:07/03/22 TIME: 914 PATIENT: MESERET MOTTA UNIT #: [id number] ROOM/BED: [place] [id number] : 56 AGE: 67 SEX: F ATTEND: Adonis Gaytan MD ADM AUTHOR: Nikolai Garsia h * ALL edits or amendments must be made on the el Tunespeak/computer document * Vancomycin Vancomycin Medication Therapy Goal: Pre-HD vanco goal 15-20mcg/mL Indication for treatment: SSTI Current therapy: Post-HD vancomycin 1000 mg IV once VS and I/O: Vital Signs Date Temp Pulse Resp B/P B/P Mean Pulse Ox FiO2 06/30-07/03 96.1-98.2 71-138 15-39 104-152/54-8 9 75-103 95-100 72 hours ending at 0700 07/03 0700 07/02 1900 07/02 0700 07/01 1900 06/30 07 1900 Intake 410.00 840 650.00 Total Output 3834 Total Balance 410.00 840 -3184.00 Intake, IV 10.00 250.00 Intake, 400 840 400 Oral Number 1 2 Bowel Movements Number 2 4 Voids Output, 3834 Hemodialys is 72 Hour I O Total 07/03 0700 07/02 0700 07/01 0700 Intake Total 1250.00 650.00 Output Total 3834 Balance 1250.00 -3184.00 Labs: Laboratory Test : 07/03 0540 Chemistry BUN (7 - 18 mg/dL) 24 H Creatinine (0.6 - 1.3 mg/dL) 4.5 H Hematology WBC (4.5 - 11.0 x10 3/uL) 8.8 Microbiology: 06/30 1255 URINE: Urine Culture - ORD Treatment plan: consult, cont current regimen/do se Regimen: Ms. Meseret Motta is a 67-year-old female with history of end-stage renal disease on hemodialysis, hypertension, diabetes, hypothyroidism, who was transferred from [facility] on 08/23 for evaluation for CABG. Patient presented here 1 week ago with complaint s of shortness of breath and lower extremity edema. Pharmacy has been consulted to dose vancomycin for SSTI Consulting Provider: Kasey Mendez MD Indication: SSTI Pre-HD Vancomycin Level Goal: 15-20 mcg/ml Day of therapy: 4 of 7 per ID 07/03 Assessment and Plan: * WBC 8.8 * Afebrile, Tmax 98.1F documented over 24 hours Microbiology: * 06/23 urine cx - no growth after 48 hours * 06/23 wound cx - enterococcus faecalis (R-tetr acycline) * 06/26 blood cx - no growth after 4 days, 06/30 urine cx - pending Imaging: * 06/22 chest xray - There are patchy ground-gla ss opacities throughout the lungs, not This is a nonspecific finding and may represent pulmonary edema versus an infectious or inflammatory process * 06/25 foot xray - Soft tis eleni swelling is seen about the left foot and ankle. Mild degenerative changes about the left 1st int erphalangeal joint and slight degenerative changes about t he left 1st metatarsophalangeal joint. No plain film evidence of osteomyelitis. Renal function: * [facility] * Last HD session on 07/01, next HD session plan joseluis for 07/04 * No residual UOP documented Dosing/monitoring: * Vancomycin loading dose 1750 mg ( 16 mg/kg) x1 given on 06/30 * Random vanc level on 07/01 at 0500 was 22.4 mcg/ml, supratherapeutic, pre-HD goal 15-20 mcg/ml * Pt still re-dosed with vanc 1000 mg IV x 1 pos t HD on 07/01. * Plan to obtain pre-HD leve l 07/04 to assess clearance. Goal 15-20 mcg/ml, will hold dose if level > 20 mcg/ml. * Pharmacy will continue to follow and monitor at 0927 RPT #:[id number] END OF REPORT 2022-07-03 08:20:00-00:00 [facility] ([facility] Nephrology Progress Note REPORT#:[id number] REPORT STATUS: Signed DATE:07/03/22 TIME: 819 PATIENT: MESERET MOTTA UNIT #: [id number] [place] [facility] [place] AGE: 67 SEX: F ATTEND: Adonis Gaytan MD ADM AUTHOR: Jennifer Shelton MD * ALL edits or amendments must be made on the el [employer]/computer document * Subjective Chief complaint: Transferred for CABG HPI: Patient seen and evaluated, discussed with care team, 67-year-old female with history of end-stage renal d isease on chronic hemodialysis Sunday, and Sunday, diabetes mellitus, peripheral arterial disease and hypertension who was transferred to [facility] for CABG. Terrence quevedo initially presented to [facility] in [place] compl aining of shortness of breath. Underwent left heart cath which showed diffuse di sease and patient was transferred for evaluation for CABG. renal consult was requ ested for management of her end-stage renal disease/ hemodialysis. Patient reports: Yes: complaints. Comments: Patient seen and evaluated, HPI no change from i nitial, feels okay. Review of Systems Constitutional: Reports: fatigue. Denies: chills, fever. Skin: Denies: abrasion, bruising. Allergy/Immun: Denies: hives, itching. Eyes: Denies: redness, discharge. ENT: Denies: ear drainage, ear ringing. Respiratory: Denies: hemoptysis, SOB. Cardiovascular: Denies: chest pain. Objective General VS/I O: Vital Signs: Date Time Temp Pulse Resp B/P B/P Pulse O2 O2 F low FiO2 Mean Ox Delivery Rate 07/03 0713 36.6 91 19 110/64 79.3 96 Nasal cannula 07/03 0417 36.8 85 15 128/72 91.1 95 07/02 2307 36.7 82 15 117/71 86.2 99 07/02 2000 Nasal 2 cannula 07/02 1858 36.8 81 15 121/71 87.8 99 07/02 1700 81 146/68 98 100 07/02 1600 36.7 81 23 139/70 93 100 Nasal 2 cannula 07/02 1600 81 23 139/70 99 100 07/02 1506 83 24 125/59 85 100 07/02 1400 76 19 116/56 80 100 07/02 1352 80 16 122/57 82 100 07/02 1200 36.6 78 29 131/89 103 100 Nasal 2 cannula 07/02 1200 78 29 131/89 103 100 07/02 1101 73 22 151/67 97 100 07/02 1001 84 39 140/66 95 100 07/02 0931 98 32 152/66 95 100 07/02 0901 92 27 144/74 99 100 07/02 0830 82 20 119/57 82 100 24 hour I O ending at 0700: 07/03 0700 07/02 1900 Intake Total 410.00 1090.00 Output Total Balance 410.00 1090.00 Intake, IV 10.00 250.00 Intake, Oral 400 840 Number 1 Bowel Movements Number Voids 2 4 PATIENT WEIGHT: Weight (lb): 245 Weight (oz): 9.52 Weight (kg): 111.13 Medications Active Meds + DC'd Last 24 Hrs Magnesium Hydroxide (MILK OF MAGNESIA) 30 ML BID PRN PRN PO Epoetin Vanesa-epbx (RETACRIT) 6,000 UNIT TuThSa@2 100 SUBQ Mupirocin (BACTROBAN 2% 22 GM OINTMENT) 1 APPLIC BID NASAL Miscellaneous Information (VANCOMYCIN PHARMACY T O DOSE) 1 EACH ASDIR IV (CKD) Lactulose (LACTULOSE) 20 GM DAILY PRN PRN PO Docusate Sodium (COLACE) 100 MG BID PO Sodium Chloride (OCEAN) 1 SPRAY Q2H PRN PRN NASA L Albuterol/Ipratropium (DUONEB) 3 ML RTQ4H PRN DC N NEB Ticagrelor (BRILINTA) 90 MG Q12HR PO Hydrocodone Bitart/Acetaminophen (NORCO 5/325) 1 TAB Q6H PRN PRN PO (DC) Hydrocodone Bitart/Acetaminophen (NORCO 10/325) 1 TAB Q6H PRN PRN PO (DC ) Atropine Sulfate (ATROPINE SULFATE 0.1MG/ML SYR) 0.5 MG ASDIR PRN IV Sodium Chloride (SODIUM CHLORIDE 0.9%) 500 ML DIR PRN IV Sevelamer Carbonate (RENVELA) 3,200 MG C MEALS P O Calcitriol (RocaltroL) 0.5 MCG DAILY PO Midodrine (PROAMATINE) 5 MG 0900,1300,1700 PO Levothyroxine Sodium (LEVOTHYROXINE SODIUM) 150 MCG DAILY 0600 PO Buspirone HCl (BUSPAR) 5 MG BID PO Metoprolol Tartrate (LOPRESSOR) 12.5 MG Q12HR PO Pantoprazole (PROTONIX) 40 MG 0600,1800 PO Midodrine (PROAMATINE) 10 MG DIALYSIS-DOSE BEFOR E PO (CKD) Albumin Human (ALBUMINAR-25%) 12.5 GM ASDIR PRN IV Heparin Sodium (Porcine) (HEPARIN SODIUM) 3,000 UNIT ASDIR PRN DIALYSIS Lidocaine HCl (LIDOCAINE HCL/PF) 0.5 ML ASDIR DC N I-DERMAL (CKD) Mannitol (MANNITOL 25% 12.5GM/50ML) 12.5 GM ASDI R PRN IV Sodium Chloride (SODIUM CHLORIDE 0.9%) 2,000 ML ASDIR PRN IV Sodium Chloride (SODIUM CHLORIDE) 5 ML ASDIR PRN IV Sodium Chloride (SODIUM CHLORIDE) 10 ML ASDIR DC N IV Sodium Chloride (SODIUM CHLORIDE 0.9%) 250 ML DIR PRN IV Aspirin (ASPIRIN) 81 MG C BK PO Atorvastatin Calcium (LIPITOR) 40 MG 2100 PO Insulin Human Lispro (HUMALOG) 0 AC HS SUBQ Dextrose/Water (DEXTROSE 10% IN WATER) 125 ML DIR PRN IV (CKD) Dextrose/Water (DEXTROSE 10% IN WATER) 250 ML DIR PRN IV (CKD) Glucagon (GLUCAGON) 1 MG ASDIR PRN IM Melatonin (Melatonin) 3 MG BEDTIME PRN PRN PO Acetaminophen (TYLENOL) 650 MG Q4H PRN PRN PO Heparin Sodium (HEPARIN 5000 UNITS/ML) 5,000 UNI T ASDIR PRN IV Nitroglycerin (NITROSTAT) 0.4 MG Q5M PRN PRN SL Ondansetron HCl (ZOFRAN) 4 MG Q6H PRN PRN IV Physical Exam General appearance: alert, no acute distress Head/eyes: atraumatic, normocephalic ENT: normal nose Neck: non-tender, supple/no meningismus Cardiovascular: normal heart sounds, no rub Respiratory: aerating well, symmetric expansion Abdomen: non-tender, soft Genitourinary: no flank pain Extremities: pitting edema, non-tender Musculoskeletal: no CVA tenderness, no tendernes s Neuro/SURGICAL SPECIALIST: alert, normal speech Skin: dry, intact Ulcer: Type/cause: diabetic, arterial Location: foot (bilateral toes) Results Findings/Data: Laboratory Tests 07/03 07/03 07/02 07/02 07/02 0540 0528 1902 1642 1123 Chemistry Sodium (134 - 147 mEq/L) 142 Potassium (3.4 - 5.0 mEq/L) 4.0 Chloride (100 - 108 mEq/L) 103 Carbon Dioxide (21 - 33 mEq/l) 26 Anion Gap (0 - 20) 17 BUN (7 - 18 mg/dL) 24 H Creatinine (0.6 - 1.3 mg/dL) 4.5 H Glomerular Filtr Rate (80 - 90) 10.2 L Glucose (70 - 110 mg/dL) 177 H POC Glucose (70 - 110 MG/DL) 170 H 154 H 134 H 156 H Calcium (8.0 - 10.5 mg/dL) 9.2 Laboratory Tests 07/03 0540 Hematology WBC (4.5 - 11.0 x10 3/uL) 8.8 RBC (3.54 - 5.02 x10 6/uL) 2.88 L Hgb (11.0 - 15.0 g/dL) 8.7 L Hct (33.0 - 45.0 %) 29.1 L MCV (81.0 - 99.0 fL) 101.0 H MCH (27.0 - 33.0 pg) 30.2 MCHC (33.0 - 37.0 g/dL) 29.9 L RDW (11.5 - 14.5 %) 14.9 H Plt Count (150 - 400 x10 3/uL) 203 MPV (7.0 - 9.0 fL) 9.5 H Neut % (Auto) (56.0 - 77.0 %) 82.1 H Lymph % (Auto) (14.0 - 32.0 %) 6.2 L Kerr % (Auto) (4.8 - 9.0 %) 8.5 Eos % (Auto) (0.3 - 3.7 %) 2.9 Baso % (Auto) (0.0 - 2.0 %) 0.1 Neut # (Auto) (2.0 - 7.6 x10 3/uL) 7.24 Lymph # (Auto) (1.0 - 3.8 x10 3/uL) 0.55 L Kerr # (Auto) (0.1 - 0.8 x10 3/uL) 0.75 Eos # (Auto) (0.0 - 0.2 x10 3/uL) 0.26 H Baso # (Auto) (0.0 - 0.2 x10 3/uL) 0.01 Abs Immat Gran (auto) (0.00 - 0.03 x10 3/uL) 0. 02 Add Manual Diff NO Immature Gran % (0.0 - 2.0 %) 0.2 Nucleated RBC % (0 - 0 %) 0.0 Nucleated RBCs # (Man) (0.0 - 0.1 x10 3/uL) 0.0 0 Diagnosis, Assessment Plan Free Text A P: Patient seen and evaluated, discussed with care team, images and laboratories reviewed. End-stage renal disease on c hronic hemodialysis, Sunday, and Sunday, plan for hemodialysis today Status post left heart cath with multi-vessel co ronary artery disease, respiratory evaluation for CABG. Hypertension: Monitor blood pressure closely and adjust medications as needed Hyperlipidemia: Lipitor Diabetes mellitus: Insulin: Monitor blood sugar closely adjust medications as needed Anemia: We will start Epogen 4000 subcu 3 times a week Elevated alkaline phosphatase we will check PTH. 06/23/2022 plan for filtration today if her bloo d pressure allows, had hemodialysis yesterday. See showed hemoglobin 9. 1, platelet 136, blood count 12.1. We will increase Epoge n to 6000 subcu 3 times a week, PTH 660 we will add Rocaltrol 0.5 mcg p.o. daily, will add midodrine 5 mg p.o. 3 times daily to allow for ultrafiltration. 06/24/2022 laboratory for th is morning showed sodium 136, potassium 4.9, CO2 23, BUN 50, creatinine 5.8, phos phorus 7.1 we will add Renvela 2 p.o. with each meal , hemoglobin 9.3, platelet 152, blood count 13.3 , for hemodialysis today, 4 hours, 2K, ultrafiltration 3 to 4 L if tolerated , seen during HD. 06/25/2022 laboratory this tiffany mcfarland showed sodium 137, potassium 4.3, CO2 25, BUN 31, creatinine 4.5, alkaline phosphatase 272, st atus post ultrafiltration yesterday, 3.9 L removed, plan for dialysis in t morning. 06/26/2022 laboratory this tiffany mcfarland showed sodium 137, potassium 4.4, CO2 22, BUN 39, creatinine 5.4, hemoglob in 9.8, platelet 145, blood count 14, phosphorus 6.8 we will increase Renvela to 4 p.o. with each meal, plan for hemodialysis today, 4 hours, 3K, ultrafiltration 3 to 4 L if tolerat ed 06/27/2022 status post peripheral angiogram/inte rvention yesterday, only had less than 2 hours of dialysis yesterday due to hypotension postprocedure, will plan on hemodialysis today, 4 hours, 3K, ultrafiltration 3 to 4 L if tolerated 06/28/2022 status post hemodialysis yesterday, w ill plan for ultrafiltration today 3 to 4 L if tolerated. Laboratory this manav barba showed sodium 136, potassium 4.2, CO2 22, BUN 22, creatinine 3.9, h emoglobin 8.9, platelet 149, blood count 10.8 06/29/2022 status post ultrafiltration yesterday 4 L removed, plan for hemodialysis today, 4 hours, 3K, ultrafiltration 3 to 4 L if tolerated. 06/30/2022 laboratory this tiffany mcfarland showed sodium 138, potassium 4.2, CO2 24, BUN 22, creatinine 4.1, hemoglobin 9.2, plat elet 195, white blood count 12, status post hemodialysis yesterday, 3 L removed. 07.01.22: Pt feels better. For HD today. will us e K2 [place]. I was then notified her RN that the pt has code blue in the radiology depertment. she is now alert and awake. will continue dialysis without any ch anges in the original order. 07.02.22: pt had code blue yesterday. Did not lo ose pulse. she thinks it was panic attack. had dialysis yesterday with net ne gative fo 3L. Feels better today. BP has been stable and So2 is 100%. will resume TTS schedule. Electrolyts and BMD are all well controlled. 07/03/2022 laboratory this morning showe d sodium 142, potassium 4, CO2 26, BUN 24, creatinine 4.5, hemoglobin 8.7, platelet 203 , blood count 8.8, plan for dialysis in the morning. Consultants: cardiology, cardiovascular surgery, nephrology, wound care Electronically Signed by Jennifer Shelton MD on at 0938 [facility] #:[id number] END OF REPORT 2022-07-03 06:56:00-00:00 [facility] Progress Note REPORT#:[id number] REPORT STATUS: Signed DATE:07/03/22 TIME: 655 PATIENT: MESERET MOTTA UNIT #: [id number] ROOM/BED: [place] [address] : 56 AGE: 67 SEX: F ATTEND: Adonis Gaytna MD ADM AUTHOR: Shelton Vega * ALL edits or amendments must be made on the [employer]/computer document * Subjective Chief complaint: rehab follow-up Events noted Eating fair NAD Denies TABARES/N/V/D/CP 14 systems reviewed and neg. except that above. Objective General VS: Vital Signs: Date Time Temp Pulse Resp B/P B/P Pulse O2 O2 F low FiO2 Mean Ox Delivery Rate 07/03 0417 98.2 85 15 128/72 91.1 95 07/02 2307 98.1 82 15 117/71 86.2 99 07/02 2000 Nasal 2 cannula 07/02 1858 98.2 81 15 121/71 87.8 99 07/02 1700 81 146/68 98 100 07/02 1600 98.1 81 23 139/70 93 100 Nasal 2 cannula 07/02 1600 81 23 139/70 99 100 07/02 1506 83 24 125/59 85 100 07/02 1400 76 19 116/56 80 100 07/02 1352 80 16 122/57 82 100 07/02 1200 97.8 78 29 131/89 103 100 Nasal 2 cannula 07/02 1200 78 29 131/89 103 100 07/02 1101 73 22 151/67 97 100 07/02 1001 84 39 140/66 95 100 07/02 0931 98 32 152/66 95 100 07/02 0901 92 27 144/74 99 100 07/02 0830 82 20 119/57 82 100 07/02 0800 98.0 83 24 131/89 103 100 Nasal 3 cannula 07/02 0800 83 24 124/61 87 100 07/02 0754 100 Nasal 2 cannula 07/02 0730 Nasal 2 cannula 07/02 0730 83 21 119/56 79 100 07/02 0700 82 32 117/71 89 100 PATIENT WEIGHT: Weight (lb): 245 Weight (oz): 9.52 Weight (kg): 111.13 Medications: Active Meds + DC'd Last 24 Hrs Magnesium Hydroxide (MILK OF MAGNESIA) 30 ML BID PRN PRN PO Epoetin Vanesa-epbx (RETACRIT) 6,000 UNIT TuThSa@2 100 SUBQ Mupirocin (BACTROBAN 2% 22 GM OINTMENT) 1 APPLIC BID NASAL Miscellaneous Information (VANCOMYCIN PHARMACY T O DOSE) 1 EACH ASDIR IV (CKD) Lactulose (LACTULOSE) 20 GM DAILY PRN PRN PO Docusate Sodium (COLACE) 100 MG BID PO Sodium Chloride (OCEAN) 1 SPRAY Q2H PRN PRN NASA L Albuterol/Ipratropium (DUONEB) 3 ML RTQ4H PRN DC N NEB Ticagrelor (BRILINTA) 90 MG Q12HR PO Hydrocodone Bitart/Acetaminophen (NORCO 5/325) 1 TAB Q6H PRN PRN PO (DC) Hydrocodone Bitart/Acetaminophen (NORCO 10/325) 1 TAB Q6H PRN PRN PO (DC ) Atropine Sulfate (ATROPINE SULFATE 0.1MG/ML SYR) 0.5 MG ASDIR PRN IV Sodium Chloride (SODIUM CHLORIDE 0.9%) 500 ML DIR PRN IV Sevelamer Carbonate (RENVELA) 3,200 MG C MEALS P O Calcitriol (RocaltroL) 0.5 MCG DAILY PO Midodrine (PROAMATINE) 5 MG 0900,1300,1700 PO Levothyroxine Sodium (LEVOTHYROXINE SODIUM) 150 MCG DAILY 0600 PO Buspirone HCl (BUSPAR) 5 MG BID PO Metoprolol Tartrate (LOPRESSOR) 12.5 MG Q12HR PO Pantoprazole (PROTONIX) 40 MG 0600,1800 PO Midodrine (PROAMATINE) 10 MG DIALYSIS-DOSE BEFOR E PO (CKD) Albumin Human (ALBUMINAR-25%) 12.5 GM ASDIR PRN IV Heparin Sodium (Porcine) (HEPARIN SODIUM) 3,000 UNIT ASDIR PRN DIALYSIS Lidocaine HCl (LIDOCAINE HCL/PF) 0.5 ML ASDIR DC N I-DERMAL (CKD) Mannitol (MANNITOL 25% 12.5GM/50ML) 12.5 GM ASDI R PRN IV Sodium Chloride (SODIUM CHLORIDE 0.9%) 2,000 ML ASDIR PRN IV Sodium Chloride (SODIUM CHLORIDE) 5 ML ASDIR PRN IV Sodium Chloride (SODIUM CHLORIDE) 10 ML ASDIR DC N IV Sodium Chloride (SODIUM CHLORIDE 0.9%) 250 ML DIR PRN IV Aspirin (ASPIRIN) 81 MG C BK PO Atorvastatin Calcium (LIPITOR) 40 MG 2100 PO Insulin Human Lispro (HUMALOG) 0 AC HS SUBQ Dextrose/Water (DEXTROSE 10% IN WATER) 125 ML DIR PRN IV (CKD) Dextrose/Water (DEXTROSE 10% IN WATER) 250 ML DIR PRN IV (CKD) Glucagon (GLUCAGON) 1 MG ASDIR PRN IM Melatonin (Melatonin) 3 MG BEDTIME PRN PRN PO Acetaminophen (TYLENOL) 650 MG Q4H PRN PRN PO Heparin Sodium (HEPARIN 5000 UNITS/ML) 5,000 UNI T ASDIR PRN IV Nitroglycerin (NITROSTAT) 0.4 MG Q5M PRN PRN SL Ondansetron HCl (ZOFRAN) 4 MG Q6H PRN PRN IV Functional Progress Functional progress: Weightbearing: No Restriction Ambulation Distance: 22', 30', 52' Progression: Forward Backward Lateral, Right Lateral, Left Assistance Level: Supervision or Set-up Gait Deviations: SLOW PACE SHORT STEPS Base of Support - Wide Effects of Treatment: Balance Improved Function Improved Gait quality improved Post [place] Precautions: CALL BUTTON WITHIN REACH ON 4L/ MIN 02 Call Light in Reach Review Plan of Care: Yes PT charges: [place] [address] FT/Therap. Activity 34202 Gait Cmt: Pt agreable to gait training, slow ca dence, steppage gait L LE. Pt states has been ambulating independently short distances to restroom. If this is the patient's last treatment, this e ntry serves as the discharge summary: Y Start Time: 921 Stop Time: 934 Treatment Time : ( minutes) 0:13 Completed by: Christine Pratt . BED MOBILITY: Yes Rolling Right/Left: Supervision or Set-up Supine to Sit: Supervision or Set-up Sit to Supine: Supervision or Set-up Scooting in bed: Supervision or Set-up TRANSFERS: Yes Bed to/from chair: Supervision or Set-up Sit to/from stand: Supervision or Set-up Physical Exam General appearance: alert, awake Psych: alert, oriented x 3 HEENT: anicteric, mucosal membranes moist Neck: supple, no JVD Cardiovascular: regular rate rhythm, no murmur Respiratory: aerating well, clear bilaterally Abdomen: bowel sounds present, non-distended, so ft, non-tender Skin: BLE and hand multi wounds Ulcer: Type/cause: diabetic, arterial Location: foot (bilateral toes) Musculoskeletal - general: Musculoskeletal - general: swelling (BLE), MMT BUE +3/5 BLE HF -3/5 KE +3/5 Neuro/SURGICAL SPECIALIST: sensory deficit ( decrease BLE), alert, oriented X 3, CNII-XII intact, normal speech Genitourinary: Results Findings/Data: Laboratory Tests 07/01 1425 Blood Gas O2 Saturation (90 - 100 %) 97.7 ABG pH (7.35 - 7.45) 7.343 L ABG pCO2 (35.0 - 45 mmHg) 47.7 H ABG pO2 (80 - 100.0 mmHg) 105.9 H ABG HCO3 (22.0 - 26.0 MMOL/L) 25.9 ABG Total CO2 27.4 ABG Base Excess (-4.0 - 4.0 MMOL/L) 0.2 ABG Hematocrit (33.0 - 45.0 %) 29 L ABG Hemoglobin (11.0 - 15.0 G/DL) 10.0 L Sodium (134 - 147 mmol/L) 139 Potassium (3.4 - 5.0 mmol/L) 4.3 Chloride (100 - 108 mmol/L) 102 Ionized Calcium (1.12 - 1.32 MMOL/L) 1.24 Lactic Acid (0.9 - 1.7 mmol/l) 1.3 Laboratory Tests 07/03 07/02 07/02 07/02 07/02 0528 1902 1642 1123 0737 Chemistry POC Glucose (70 - 110 MG/DL) 170 H 154 H 134 H 156 H 222 H 07/02 07/01 07/01 07/01 07/01 0617 2116 1639 1430 1425 Chemistry Sodium (134 - 147 mEq/L) 141 140 Potassium (3.4 - 5.0 mEq/L) 4.0 4.4 Chloride (100 - 108 mEq/L) 102 104 Carbon Dioxide (21 - 33 mEq/l) 28 26 Anion Gap (0 - 20) 15 14 BUN (7 - 18 mg/dL) 17 31 H Creatinine (0.6 - 1.3 mg/dL) 3.4 H 5.0 H POC Creatinine (0.6 - 1.0 mg/dL) 5.3 H Glomerular Filtr Rate (80 - 90) 14.3 L 9.0 L Glucose (70 - 110 mg/dL) 162 H 191 H POC Glucose (70 - 110 MG/DL) 224 H 174 H POC Glucose (mg/dL) (70 - 110 MG/DL) 188 H Calcium (8.0 - 10.5 mg/dL) 9.0 9.1 Ionized Calcium Anthony (1.09 - 1.30 1.11 MMOL/L) Phosphorus (2.5 - 4.9 MG/DL) 3.0 Magnesium (1.80 - 2.40 mg/dL) 1.89 07/01 07/01 07/01 07/01 06/30 1354 1027 0615 0509 1936 Chemistry Sodium (134 - 147 mEq/L) 140 Potassium (3.4 - 5.0 mEq/L) 4.6 Chloride (100 - 108 mEq/L) 102 Carbon Dioxide (21 - 33 mEq/l) 27 Anion Gap (0 - 20) 16 BUN (7 - 18 mg/dL) 29 H Creatinine (0.6 - 1.3 mg/dL) 4.7 H Glomerular Filtr Rate (80 - 90) 9.7 L Glucose (70 - 110 mg/dL) 142 H POC Glucose (70 - 110 MG/DL) 182 H 251 H 148 H 143 H Calcium (8.0 - 10.5 mg/dL) 9.7 Phosphorus (2.5 - 4.9 MG/DL) 4.6 Magnesium (1.80 - 2.40 mg/dL) 2.20 06/30 06/30 06/30 0909 4929 0782 Chemistry Sodium (134 - 147 mEq/L) 138 Potassium (3.4 - 5.0 mEq/L) 4.2 Chloride (100 - 108 mEq/L) 100 Carbon Dioxide (21 - 33 mEq/l) 24 Anion Gap (0 - 20) 19 BUN (7 - 18 mg/dL) 22 H Creatinine (0.6 - 1.3 mg/dL) 4.1 H Glomerular Filtr Rate (80 - 90) 11.4 L Glucose (70 - 110 mg/dL) 220 H POC Glucose (70 - 110 MG/DL) 152 H 120 H Calcium (8.0 - 10.5 mg/dL) 9.6 Laboratory Tests 07/02 07/01 06/30 0617 0615 0725 Hematology WBC (4.5 - 11.0 x10 3/uL) 8.6 9.9 12.0 H RBC (3.54 - 5.02 x10 6/uL) 3.00 L 2.96 L 3.06 L Hgb (11.0 - 15.0 g/dL) 9.0 L 9.2 L 9.2 L Hct (33.0 - 45.0 %) 30.9 L 30.6 L 31.2 L MCV (81.0 - 99.0 fL) 103.0 H 103.4 H 102.0 H MCH (27.0 - 33.0 pg) 30.0 31.1 30.1 MCHC (33.0 - 37.0 g/dL) 29.1 L 30.1 L 29.5 L RDW (11.5 - 14.5 %) 15.0 H 15.3 H 14.9 H Plt Count (150 - 400 x10 3/uL) 187 200 195 MPV (7.0 - 9.0 fL) 9.4 H 9.7 H 9.1 H Neut % (Auto) (56.0 - 77.0 %) 80.9 H 80.7 H 90. 8 H Lymph % (Auto) (14.0 - 32.0 %) 7.5 L 7.7 L 3.1 L Kerr % (Auto) (4.8 - 9.0 %) 8.4 8.2 4.9 Eos % (Auto) (0.3 - 3.7 %) 2.7 2.8 0.5 Baso % (Auto) (0.0 - 2.0 %) 0.1 0.2 0.1 Neut # (Auto) (2.0 - 7.6 x10 3/uL) 6.93 7.99 H 10.86 H Lymph # (Auto) (1.0 - 3.8 x10 3/uL) 0.64 L 0.76 L 0.37 L Kerr # (Auto) (0.1 - 0.8 x10 3/uL) 0.72 0.81 H 0.59 Eos # (Auto) (0.0 - 0.2 x10 3/uL) 0.23 H 0.28 H 0.06 Baso # (Auto) (0.0 - 0.2 x10 3/uL) 0.01 0.02 0. 01 Abs Immat Gran (auto) (0.00 - 0.03 x10 3/uL) 0. 03 0.04 H 0.07 H Add Manual Diff NO NO NO Immature Gran % (0.0 - 2.0 %) 0.4 0.4 0.6 Nucleated RBC % (0 - 0 %) 0.0 0.0 0.0 Nucleated RBCs # (Man) (0.0 - 0.1 x10 3/uL) 0.0 0 0.00 0.00 Laboratory Tests 07/01 0615 Toxicology Random Vancomycin (mcg/mL) 22.4 Recent Impressions: ULTRASOUND - US PELVIS COMPLETE 07/01 1406 Report Impression - Status: SIGNED Entered: 07/01/2022 1434 IMPRESSION: Limited exam 1. Probable uterine fibroids. If further delinea tion is desired, an MRI pelvis without and with IV contrast can be o btained. 2. Fluid in the endocervical canal of uncertain etiology, may be related to history of bleeding. 3. Ovaries not visualized. Impression By: Donna Moran M.D. ULTRASOUND - US TRANSVAGINAL NON OB 07/01 1407 Report Impression - Status: SIGNED Entered: 07/01/2022 1434 IMPRESSION: Limited exam 1. Probable uterine fibroids. If further delinea tion is desired, an MRI pelvis without and with IV contrast can be o btained. 2. Fluid in the endocervical canal of uncertain etiology, may be related to history of bleeding. 3. Ovaries not visualized. Impression By: Donna Moran M.D. RADIOLOGY - XR CHEST 1 V 07/01 1537 Report Impression - Status: SIGNED Entered: 07/01/2022 1741 IMPRESSION: 1. Cardiac silhouette moderately enlarged. 2. Moderate right pleural effusion. 3. Hazy airspace and interstitial opacities with in both lungs, which may represent pulmonary edema, pneumonitis and/or atelectasis. Impression By: [email or web address] Gali Hernandez M.D. Diagnosis, Assessment Plan Free Text A P: 67-year-old female with weakness and impaired mo bility 2/2 cardiac myopathy positive for NSTEMI Multivessel CAD, acute on ch ronic diastolic heart failure -End-stage renal disease on hemodialysis -Severe PVD-(s/p MORPHOLOGIST and ath erectomy with CSI followed by MORPHOLOGIST with TAVR balloon on left anterior and posterior tibial artery. CT O of right anterior/posterior tibial artery) -Uremic Neuropathy -Uremic Myopathy -Generalized weakness -Impaired mobility, gait, balance, ADLs, and end urance -Acute hypoxemia resp failure -Acute on chronic diastolic HF -Diabetes type 2 with hyperglycemia -Hypertension -COPD -Multiple wounds on feet and hands Plan: Continue supportive and preventative care Wound care team is following wound care manageme nt Continue PT/OT Out of bed to chair Work on ADLs, strength, bed mobility, transfers, gait DVT prophylaxis on SCD Strict fall and safety precautions Monitor p.o. intake and nutrition Strict decubitus precautions Monitor labs Wound care on outsole caser labs Advance therapies as tolerated. Patient particip ating in therapies Pt. no longer wants IRF. Wan ts snf in [place]. Discussed with CM. Order for SNF placed. TT:33 mins: time spent reviewing chart, meds, la bs notes and assessing pt and discussing rehab poc. Answered all quesions Consultants: cardiology, cardiovascular surgery, nephrology, wound care Rehab attestation: . Electronically Signed by Shelton Vega on 1 09/03/21 at 1629 RPT #:[id number] END OF REPORT 2022-07-02 12:34:00-00:00 [facility]) Pulmonology Progress Note REPORT#:[id number] REPORT STATUS: Signed DATE:07/02/22 TIME: 1234 PATIENT: MESERET MOTTA UNIT #: [id number] ROOM/BED: [place] [address] : 56 AGE: 67 SEX: F ATTEND: Adonis Gaytan MD ADM AUTHOR: Chris Estevez MD * ALL edits or amendments must be made on the [employer]/computer document * Subjective Chief complaint: SOB Comments: Sudden vasovagal event with rapid response Doing fine now with no issues ROS: no nausea/vomitting or chest pain Objective General VS/I O: Last Documented: Result Date Time Pulse Ox 100 07/02 1101 B/P 151/67 07/02 1101 B/P Mean 97 07/02 1101 Pulse 73 07/02 1101 Resp 22 07/02 1101 O2 Delivery Nasal cannula 07/02 0754 O2 Flow Rate 2 07/02 0754 Temp 96.8 12/24 2000 FiO2 21 06/28 2342 24 hour I O ending at 0700: 07/01 1900 07/02 0700 Intake Total 400 Output Total 3834 Balance -3434 Intake, Oral 400 Output, 3834 Hemodialysis PATIENT WEIGHT: Weight (lb): 245 Weight (oz): 9.52 Weight (kg): 111.13 Physical Exam General appearance: chronically ill appearing Head/eyes: atraumatic, normocephalic, PERRL Neck: supple/no meningismus, no bruit/NL carotid s, no lymphadenopathy Cardiovascular: normal S1/S2, no rub, no gallop Respiratory/chest: decreased breath sounds, symmetric expansion, no distress, no tenderness Abdomen: soft, normal bowel sounds, no distentio n, no guarding Extremities: edema, no clubbing Neuro/SURGICAL SPECIALIST: alert, oriented X 3, no motor deficit s Skin: dry, normal color Ulcer: Type/cause: diabetic, arterial Location: foot (bilateral toes) Psychiatry: normal affect, no hallucinations Diagnosis, Assessment Plan Free Text A P: 1- Acute hypoxemic respiratory failure 2- Acute pulm edema 3- Cardiology disease status post PCI 4- Chronic diastolic heart failure HFpEF 5- End-stage renal disease on hemodialysis 6- Hypertension/DM2 7- Peripheral vascular disease/ischemic ulcer 8- Obesity ? Underlying JAMILAH - Continue nasal cannula O2, titrate to keep sat s above 94% - Hemodialysis with fluid removal per nephrology service - DuoNeb every 4 hours as needed - Continue to optimize heart failure management, blood pressure control - Wound care - Outpatient sleep study - DVT prophylaxis Suspicious for vasovagal event now resolved Pending transfer to floor Electronically Signed by Chris Estevez MD on 06/09 11/27 at 1235 RPT #:[id number] END OF REPORT 2022-07-02 11:45:00-00:00 [facility] Hospitalist Progress Note REPORT#:[id number] REPORT STATUS: Signed DATE:07/02/22 TIME: 1145 PATIENT: MESERET MOTTA UNIT #: [id number] ROOM/BED: [place] [address] : 56 AGE: 67 SEX: F ATTEND: Adonis Gaytan MD ADM AUTHOR: Adonis Gaytan MD * ALL edits or amendments must be made on the [employer] document * Subjective Chief complaint: events noted. a "CODE BLUE" called yesterday at [facility], but no loss of pulse (pt believes it to be a panic attack). Objective General VS/I O: Vital Signs: Date Time Temp Pulse Resp B/P B/P Pulse O2 O2 F low FiO2 Mean Ox Delivery Rate 07/02 1101 73 22 151/67 97 100 07/02 1001 84 39 140/66 95 100 07/02 0931 98 32 152/66 95 100 07/02 0901 92 27 144/74 99 100 07/02 0830 82 20 119/57 82 100 07/02 0800 83 24 124/61 87 100 07/02 0754 100 Nasal 2 cannula 07/02 0730 83 21 119/56 79 100 07/02 0700 82 32 117/71 89 100 07/02 0630 77 18 109/55 76 100 07/02 0433 87 25 143/72 98 100 07/02 0400 72 32 117/60 83 100 07/02 0330 81 21 140/59 90 100 07/02 0300 72 17 123/58 84 100 07/02 0230 74 19 124/60 86 100 07/02 0130 71 29 104/54 75 100 07/02 0100 78 31 129/61 88 100 07/02 0030 79 27 116/57 79 100 07/02 0000 81 20 120/57 82 100 07/01 2331 138 24 130/71 93 100 07/01 2300 89 31 126/63 89 100 07/01 2230 88 20 111/55 77 100 07/01 2221 89 26 115/83 89 100 07/01 2130 85 21 113/60 79 100 07/01 2100 89 22 129/60 87 100 07/014 85 22 131/58 84 100 07/01 2016 83 38 116/57 79 99 07/01 2000 96.8 Nasal 3 cannula 07/01 2000 Nasal 2 cannula 07/01 2000 95 38 107/65 80 98 07/01 192 96.8 91 25 127/60 99 Nasal 5 cannula 07/01 1606 96.1 77 17 126/61 100 Nasal 5 cannula 07/01 1500 Nasal 2 cannula 24 hour I O ending at 0700: 07/02 0700 07/01 1900 Intake Total 400 Output Total 3834 Balance -3434 Intake, Oral 400 Output, 3834 Hemodialysis PATIENT WEIGHT: Weight (lb): 245 Weight (oz): 9.52 Weight (kg): 111.13 Physical Exam General appearance: alert, awake Head/Eyes: atraumatic, clear cornea, EOMI, kristopher l conjunctiva/sclera, PERRLA ENT: moist mucosal membranes Neck: supple/no meningismus, no JVD Cardiovascular: normal heart sounds, regular rat e rhythm, no murmur Respiratory: aerating well, clear to auscultatio n, symmetric expansion Abdomen: non-tender, normal bowel sounds, soft, no distention Extremities: edema, moves all Neuro/SURGICAL SPECIALIST: alert, oriented X 3, normal speech, n o motor deficits Ulcer: Type/cause: diabetic, arterial Location: foot (bilateral toes) Psychiatry: normal affect Results Radiology data: Laboratory Tests 07/02/22 0617: [Embedded Image Not Available] 07/01/22 1430: [Embedded Image Not Available] 07/01/22 0615: [Embedded Image Not Available] Current Medications Sig/Enedina Start time Last Medication Dose Route Stop Time Status Admin Epoetin Vanesa-epbx 6,000 UNIT TuThSa@2100 07/01 2 300 AC 07/02 SUBQ 07/31 2259 0052 Mupirocin 1 APPLIC BID 07/01 2100 AC 07/02 NASAL 07/06 0901 0822 Vancomycin HCl 1,000 MG ONCE ONE 07/01 2100 DC 1 09/01 Sodium Chloride 250 ML IV 07/01 2159 2055 Miscellaneous 1 EACH ASDIR 06/30 1300 CKD Information IV 07/30 1259 Lactulose 20 GM DAILY PRN PRN 06/30 1045 AC 06/09 5 PO 07/30 1044 0831 Docusate Sodium 100 MG BID 06/30 0900 AC 07/02 PO 07/30 0859 0823 Sodium Chloride 1 SPRAY Q2H PRN PRN 06/29 1015 A C 06/29 NASAL 07/29 1014 1724 Albuterol/Ipratropiu 3 ML RTQ4H PRN PRN 06/28 12 15 AC m NEB 07/28 1214 Ticagrelor 90 MG Q12HR 06/28 1115 AC 07/02 PO 07/28 1114 0823 Hydrocodone Bitart/ 1 TAB Q6H PRN PRN 06/27 1645 AC 06/30 Acetaminophen PO 07/02 1644 0722 Hydrocodone Bitart/ 1 TAB Q6H PRN PRN 06/27 1645 AC 07/01 Acetaminophen PO 07/02 1644 205 Atropine Sulfate 0.5 MG ASDIR PRN 06/27 1600 AC IV 07/27 1559 Sodium Chloride 500 ML ASDIR PRN 06/27 1600 AC IV 07/27 1559 Sevelamer Carbonate 3,200 MG C MEALS 06/26 0800 AC 07/02 PO 07/26 0759 0823 Epoetin Vanesa-epbx 6,000 UNIT TuThSa@2100 06/24 2 100 DC 06/29 SUBQ 07/24 Calcitriol 0.5 MCG DAILY 06/23 0900 AC 07/02 PO 07/23 0859 0824 Midodrine 5 MG 0900,1300,1700 06/23 0900 AC 06/09 5 PO 07/23 0859 0823 Levothyroxine Sodium 150 MCG DAILY 0600 06/23 06 00 AC 07/02 PO 07/23 0559 0603 Buspirone HCl 5 MG BID 06/22 2100 AC 07/02 PO 07/22 2058 0824 Metoprolol Tartrate 12.5 MG Q12HR 06/22 2100 AC 07/02 PO 07/22 2058 0823 Pantoprazole 40 MG 0600,1800 06/22 1800 AC 07/02 PO 07/22 175 0603 Midodrine 10 MG DIALYSIS-DOSE 06/22 1545 CKD BEFORE PO 07/22 1544 1856 Albumin Human 12.5 GM ASDIR PRN 06/22 1530 AC IV 07/23 1529 1909 Heparin Sodium 3,000 UNIT ASDIR PRN 06/22 1530 A C 07/01 (Porcine) DIALYSIS 07/22 1529 1613 Lidocaine HCl 0.5 ML ASDIR PRN 06/22 1530 CKD I-DERMAL 07/23 1529 Mannitol 12.5 GM ASDIR PRN 06/22 1530 AC IV 07/23 1529 Sodium Chloride 2,000 ML ASDIR PRN 06/22 1530 AC 07/01 IV 07/23 1529 1500 Sodium Chloride 5 ML ASDIR PRN 06/22 1530 AC IV 07/22 1529 Sodium Chloride 10 ML ASDIR PRN 06/22 1530 AC IV 07/22 1529 1616 Sodium Chloride 250 ML ASDIR PRN 06/22 1530 AC IV 07/22 1529 Aspirin 81 MG C BK 06/22 0800 AC 07/02 PO 07/22 0759 0823 Atorvastatin Calcium 40 MG 2100 06/21 2100 AC PO 07/21 2058 205 Insulin Human Lispro 0 AC HS 06/21 2100 AC 07/02 SUBQ 07/21 2058 0822 Dextrose/Water 125 ML ASDIR PRN 06/21 1900 CKD IV 07/21 185 Dextrose/Water 250 ML ASDIR PRN 06/21 1900 CKD IV 07/21 185 Glucagon 1 MG ASDIR PRN 06/21 190 AC IM 07/21 185 Melatonin 3 MG BEDTIME PRN PRN 06/21 1900 AC PO 07/21 1859 2343 Acetaminophen 650 MG Q4H PRN PRN 06/21 1730 AC 1 08/28 PO 07/21 1729 1301 Heparin Sodium 5,000 UNIT ASDIR PRN 06/21 1730 A C 06/22 IV 07/21 1729 1449 Nitroglycerin 0.4 MG Q5M PRN PRN 06/21 1730 AC SL 07/21 1729 Ondansetron HCl 4 MG Q6H PRN PRN 06/21 1730 AC 1 09/02 IV 07/21 1729 0823 Laboratory Tests: 07/02 07/02 07/02 07/01 07/01 1123 0737 0617 2116 1639 Chemistry Sodium (134 - 147 mEq/L) 141 Potassium (3.4 - 5.0 mEq/L) 4.0 Chloride (100 - 108 mEq/L) 102 Carbon Dioxide (21 - 33 mEq/l) 28 Anion Gap (0 - 20) 15 BUN (7 - 18 mg/dL) 17 Creatinine (0.6 - 1.3 mg/dL) 3.4 H Glomerular Filtr Rate (80 - 90) 14.3 L Glucose (70 - 110 mg/dL) 162 H POC Glucose (70 - 110 MG/DL) 156 H 222 H 224 H 174 H Calcium (8.0 - 10.5 mg/dL) 9.0 Ionized Calcium Anthony (1.09 - 1.30 MMOL/L) 1.11 Phosphorus (2.5 - 4.9 MG/DL) 3.0 Magnesium (1.80 - 2.40 mg/dL) 1.89 Hematology WBC (4.5 - 11.0 x10 3/uL) 8.6 RBC (3.54 - 5.02 x10 6/uL) 3.00 L Hgb (11.0 - 15.0 g/dL) 9.0 L Hct (33.0 - 45.0 %) 30.9 L MCV (81.0 - 99.0 fL) 103.0 H MCH (27.0 - 33.0 pg) 30.0 MCHC (33.0 - 37.0 g/dL) 29.1 L RDW (11.5 - 14.5 %) 15.0 H Plt Count (150 - 400 x10 3/uL) 187 MPV (7.0 - 9.0 fL) 9.4 H Neut % (Auto) (56.0 - 77.0 %) 80.9 H Lymph % (Auto) (14.0 - 32.0 %) 7.5 L Kerr % (Auto) (4.8 - 9.0 %) 8.4 Eos % (Auto) (0.3 - 3.7 %) 2.7 Baso % (Auto) (0.0 - 2.0 %) 0.1 Neut # (Auto) (2.0 - 7.6 x10 3/uL) 6.93 Lymph # (Auto) (1.0 - 3.8 x10 3/uL) 0.64 L Kerr # (Auto) (0.1 - 0.8 x10 3/uL) 0.72 Eos # (Auto) (0.0 - 0.2 x10 3/uL) 0.23 H Baso # (Auto) (0.0 - 0.2 x10 3/uL) 0.01 Abs Immat Gran (auto) (0.00 - 0.03 0.03 x10 3/uL) Add Manual Diff NO Immature Gran % (0.0 - 2.0 %) 0.4 Nucleated RBC % (0 - 0 %) 0.0 Nucleated RBCs # (Man) (0.0 - 0.1 0.00 x10 3/uL) 07/01 07/01 07/01 1430 1425 1354 Blood Gas O2 Saturation (90 - 100 %) 97.7 ABG pH (7.35 - 7.45) 7.343 L ABG pCO2 (35.0 - 45 mmHg) 47.7 H ABG pO2 (80 - 100.0 mmHg) 105.9 H ABG HCO3 (22.0 - 26.0 MMOL/L) 25.9 ABG Total CO2 27.4 ABG Base Excess (-4.0 - 4.0 MMOL/L) 0.2 ABG Hematocrit (33.0 - 45.0 %) 29 L ABG Hemoglobin (11.0 - 15.0 G/DL) 10.0 L Sodium (134 - 147 mmol/L) 139 Potassium (3.4 - 5.0 mmol/L) 4.3 Chloride (100 - 108 mmol/L) 102 Ionized Calcium (1.12 - 1.32 MMOL/L) 1.24 Lactic Acid (0.9 - 1.7 mmol/l) 1.3 Chemistry Sodium (134 - 147 mEq/L) 140 Potassium (3.4 - 5.0 mEq/L) 4.4 Chloride (100 - 108 mEq/L) 104 Carbon Dioxide (21 - 33 mEq/l) 26 Anion Gap (0 - 20) 14 BUN (7 - 18 mg/dL) 31 H Creatinine (0.6 - 1.3 mg/dL) 5.0 H POC Creatinine (0.6 - 1.0 mg/dL) 5.3 H Glomerular Filtr Rate (80 - 90) 9.0 L Glucose (70 - 110 mg/dL) 191 H POC Glucose (70 - 110 MG/DL) 182 H POC Glucose (mg/dL) (70 - 110 MG/DL) 188 H Calcium (8.0 - 10.5 mg/dL) 9.1 Recent Impressions: ULTRASOUND - US PELVIS COMPLETE 07/01 1406 Report Impression - Status: SIGNED Entered: 07/01/2022 3844 IMPRESSION: Limited exam 1. Probable uterine fibroids. If further delinea tion is desired, an MRI pelvis without and with IV contrast can be o btained. 2. Fluid in the endocervical canal of uncertain etiology, may be related to history of bleeding. 3. Ovaries not visualized. Impression By: Donna Moran M.D. ULTRASOUND - US TRANSVAGINAL NON OB 07/01 1407 Report Impression - Status: SIGNED Entered: 07/01/2022 1434 IMPRESSION: Limited exam 1. Probable uterine fibroids. If further delinea tion is desired, an MRI pelvis without and with IV contrast can be o btained. 2. Fluid in the endocervical canal of uncertain etiology, may be related to history of bleeding. 3. Ovaries not visualized. Impression By: OrvilleV Gali Moran M.D. RADIOLOGY - XR CHEST 1 V 07/01 1537 Report Impression - Status: SIGNED Entered: 07/01/2022 1741 IMPRESSION: 1. Cardiac silhouette moderately enlarged. 2. Moderate right pleural effusion. 3. Hazy airspace and interstitial opacities with in both lungs, which may represent pulmonary edema, pneumonitis and/or atelectasis. Impression By: [email or web address] - Sha Hernandez M.D. Diagnosis, Assessment Plan Consultants: cardiology, cardiovascular surgery, nephrology, wound care Free Text DxA P Notes Free text DxA P notes: Assessment and plans: Three-vessel coronary artery disease CV surgery following. Dopplers, alexandro duplex were ordered patient is off the heparin drip on aspirin, Brilinta, atorvastatin, metoprolol -echo from OSH LVEF 50% cardiology seen -S/p PCI to left circumflex 06/27 Patient needs staged PCI to mid and proximal LAD in 1 to 2 weeks as outpatient vaginal bleeding- fibroids 07/01 - bleeding for 2 weeks and had no vaginal bleeding for 15 years...ask [employer] to see and check pelvic ultrasound. 07/02 - usg shows fibroids and director [employer] wants outpt f /u for endometrial bx. Severe PAD/toe ulcer: Status post MORPHOLOGIST and atherec cheri with CSI followed by MORPHOLOGIST with stable balloon on left anterior and posterior tibial artery, for r ight anterior and posterior tibial artery Will need staged intervention as p er cardiology. 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 Plan for peripheral angiogram in the morning as per c ardiology 06/29 Acute respiratory failure with hypoxemia Patient presented with supplemental nasal cannu la oxygen -Pulmonary edema, pleural effusion on CT chest, no PE Patient needs to be evaluated for home oxygen o nce patient is medically cleared for discharge On 2 L oxygen via nasal cannula 06/29 DuoNeb treatment Pulmonary consulted -Continue to optimize heart failure management, blood pressure control and Outpatient sleep study Leukocytosis: -CT chest result done -Afebrile -Patient has multiple ulcers in hands and feet. Wound cx growing ent fecalis, rocephin switched to unasyn 07/04 -blood culture 06/26 (was not ordered on admissi on) no growth till now 06/30- WBC increasing on unasyn. consult ID. ran prieto? 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 Pat ient lives alone. 06/28 Elevated LFTs Secondary to hepatic congestion Monitor LFTs Type 2 diabetes mellitus on insulin sliding scale Diabetic diet Hypothyroidism Resume Synthroid Anemia of chronic disease -Transfuse for Hb <7 -No bleeding hypotension on midodrine on empiric IV CTX check labs in am SCD for DVT prophylaxis. Disposition: S/p PCI and 1 stent placement in le ft circumflex, plan for peripheral angiogram to right anterior and poste rior tibial artery. On 2 L oxygen via nasal cannula. On Unasyn. Patient ricki es alone. Case management consulted for inpatient rehab. Continue inpatien t care. 06/30- WBC worsening. ID consulted. awaiting tra nsfer to rehab. 07/01- WBC better. ABX changed from unas yn to VANC. pt c/o DUB. 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 07/02- Possible panic attack yesterday...to CCU..transfer back to telemetry. d/w bedside nurse. Quality: Gen Med Crit Care VTE Prophylaxis VTE prophylaxis initiated: yes Current Medications Current medication review: I attest that the foregoing medication list in t medical record is true, accurate, and complete to the best of my knowled ge. Electronically Signed by Adonis Gaytan MD on 06/09 11/27 at 1147 RPT #:[id number] END OF REPORT 2022-07-02 10:59:00-00:00 [facility] ([facility]) Cardiology Progress Note REPORT#:[id number] REPORT STATUS: Signed DATE:07/02/22 TIME: 1059 PATIENT: MESERET MOTTA UNIT #: [id number] ROOM/BED: [place] [address] : 56 AGE: 67 SEX: F ATTEND: Adonis Gaytan MD ADM AUTHOR: Brian Alfred MD * ALL edits or amendments must be made on the el Tunespeak/computer document * Subjective Chief complaint: feeling better Objective General VS/I O: 24 hour I O ending at 0700: 07/03 0700 07/02 1900 Intake Total 410.00 1090.00 Output Total Balance 410.00 1090.00 Intake, IV 10.00 250.00 Intake, Oral 400 840 Number 1 Bowel Movements Number Voids 2 4 Vital Signs: Date Time Temp Pulse Resp B/P B/P Pulse O2 O2 Flow FiO2 Mean Ox Delivery Rate 07/03 0713 97.9 91 19 110/64 79.3 96 Nasal cannula 07/03 0417 98.2 85 15 128/72 91.1 95 07/02 2307 98.1 82 15 117/71 86.2 99 07/02 2000 Nasal 2 cannula 07/02 1858 98.2 81 15 121/71 87.8 99 07/02 1700 81 146/68 98 100 07/02 1600 98.1 81 23 139/70 93 100 Nasal 2 cannula 07/02 1600 81 23 139/70 99 100 07/02 1506 83 24 125/59 85 100 07/02 1400 76 19 116/56 80 100 07/02 1352 80 16 122/57 82 100 07/02 1200 97.8 78 29 131/89 103 100 Nasal 2 cannula 07/02 1200 78 29 131/89 103 100 07/02 1101 73 22 151/67 97 100 07/02 1001 84 39 140/66 95 100 PATIENT WEIGHT: Weight (lb): 245 Weight (oz): 9.52 Weight (kg): 111.13 Medications: Active Meds + DC'd Last 24 Hrs Magnesium Hydroxide (MILK OF MAGNESIA) 30 ML BID PRN PRN PO Epoetin Vanesa-epbx (RETACRIT) 6,000 UNIT TuThSa@2 100 SUBQ Mupirocin (BACTROBAN 2% 22 GM OINTMENT) 1 APPLIC BID NASAL Miscellaneous Information (VANCOMYCIN PHARMACY T O DOSE) 1 EACH ASDIR IV (CKD) Lactulose (LACTULOSE) 20 GM DAILY PRN PRN PO Docusate Sodium (COLACE) 100 MG BID PO Sodium Chloride (OCEAN) 1 SPRAY Q2H PRN PRN NASA L Albuterol/Ipratropium (DUONEB) 3 ML RTQ4H PRN DC N NEB Ticagrelor (BRILINTA) 90 MG Q12HR PO Hydrocodone Bitart/Acetaminophen (NORCO 5/325) 1 TAB Q6H PRN PRN PO (DC) Hydrocodone Bitart/Acetaminophen (NORCO 10/325) 1 TAB Q6H PRN PRN PO (DC ) Atropine Sulfate (ATROPINE SULFATE 0.1MG/ML SYR) 0.5 MG ASDIR PRN IV Sodium Chloride (SODIUM CHLORIDE 0.9%) 500 ML DIR PRN IV Sevelamer Carbonate (RENVELA) 3,200 MG C MEALS P O Calcitriol (RocaltroL) 0.5 MCG DAILY PO Midodrine (PROAMATINE) 5 MG 0900,1300,1700 PO Levothyroxine Sodium (LEVOTHYROXINE SODIUM) 150 MCG DAILY 0600 PO Buspirone HCl (BUSPAR) 5 MG BID PO Metoprolol Tartrate (LOPRESSOR) 12.5 MG Q12HR PO Pantoprazole (PROTONIX) 40 MG 0600,1800 PO Midodrine (PROAMATINE) 10 MG DIALYSIS-DOSE BEFOR E PO (CKD) Albumin Human (ALBUMINAR-25%) 12.5 GM ASDIR PRN IV Heparin Sodium (Porcine) (HEPARIN SODIUM) 3,000 UNIT ASDIR PRN DIALYSIS Lidocaine HCl (LIDOCAINE HCL/PF) 0.5 ML ASDIR DC N I-DERMAL (CKD) Mannitol (MANNITOL 25% 12.5GM/50ML) 12.5 GM ASDI R PRN IV Sodium Chloride (SODIUM CHLORIDE 0.9%) 2,000 ML ASDIR PRN IV Sodium Chloride (SODIUM CHLORIDE) 5 ML ASDIR PRN IV Sodium Chloride (SODIUM CHLORIDE) 10 ML ASDIR DC N IV Sodium Chloride (SODIUM CHLORIDE 0.9%) 250 ML DIR PRN IV Aspirin (ASPIRIN) 81 MG C BK PO Atorvastatin Calcium (LIPITOR) 40 MG 2100 PO Insulin Human Lispro (HUMALOG) 0 AC HS SUBQ Dextrose/Water (DEXTROSE 10% IN WATER) 125 ML DIR PRN IV (CKD) Dextrose/Water (DEXTROSE 10% IN WATER) 250 ML DIR PRN IV (CKD) Glucagon (GLUCAGON) 1 MG ASDIR PRN IM Melatonin (Melatonin) 3 MG BEDTIME PRN PRN PO Acetaminophen (TYLENOL) 650 MG Q4H PRN PRN PO Heparin Sodium (HEPARIN 5000 UNITS/ML) 5,000 UNI T ASDIR PRN IV Nitroglycerin (NITROSTAT) 0.4 MG Q5M PRN PRN SL Ondansetron HCl (ZOFRAN) 4 MG Q6H PRN PRN IV Physical Exam General appearance: alert, awake, oriented Neck: non-tender, no JVD Cardiovascular: CV assessment: regular rate and rhythm Respiratory: decreased breath sounds, on oxygen, no distress Abdomen: non-tender, obese Genitourinary: no flank pain, no urinary cathete r Lower extremity: LE assessment: edema, abnormal pedal pulse Musculoskeletal: normal inspection Neuro/SURGICAL SPECIALIST: alert, oriented X 3, normal speech Skin: scabs lower extremities Ulcer: Type/cause: diabetic, arterial Location: foot (bilateral toes) Psychiatry: normal affect, normal mood Results Findings/Data: Laboratory Tests 07/03 07/03 07/02 07/02 07/02 0540 0528 1902 1642 1123 Chemistry Sodium (134 - 147 mEq/L) 142 Potassium (3.4 - 5.0 mEq/L) 4.0 Chloride (100 - 108 mEq/L) 103 Carbon Dioxide (21 - 33 mEq/l) 26 Anion Gap (0 - 20) 17 BUN (7 - 18 mg/dL) 24 H Creatinine (0.6 - 1.3 mg/dL) 4.5 H Glomerular Filtr Rate (80 - 90) 10.2 L Glucose (70 - 110 mg/dL) 177 H POC Glucose (70 - 110 MG/DL) 170 H 154 H 134 H 156 H Calcium (8.0 - 10.5 mg/dL) 9.2 Laboratory Tests 07/03 0540 Hematology WBC (4.5 - 11.0 x10 3/uL) 8.8 RBC (3.54 - 5.02 x10 6/uL) 2.88 L Hgb (11.0 - 15.0 g/dL) 8.7 L Hct (33.0 - 45.0 %) 29.1 L MCV (81.0 - 99.0 fL) 101.0 H MCH (27.0 - 33.0 pg) 30.2 MCHC (33.0 - 37.0 g/dL) 29.9 L RDW (11.5 - 14.5 %) 14.9 H Plt Count (150 - 400 x10 3/uL) 203 MPV (7.0 - 9.0 fL) 9.5 H Neut % (Auto) (56.0 - 77.0 %) 82.1 H Lymph % (Auto) (14.0 - 32.0 %) 6.2 L Kerr % (Auto) (4.8 - 9.0 %) 8.5 Eos % (Auto) (0.3 - 3.7 %) 2.9 Baso % (Auto) (0.0 - 2.0 %) 0.1 Neut # (Auto) (2.0 - 7.6 x10 3/uL) 7.24 Lymph # (Auto) (1.0 - 3.8 x10 3/uL) 0.55 L Kerr # (Auto) (0.1 - 0.8 x10 3/uL) 0.75 Eos # (Auto) (0.0 - 0.2 x10 3/uL) 0.26 H Baso # (Auto) (0.0 - 0.2 x10 3/uL) 0.01 Abs Immat Gran (auto) (0.00 - 0.03 x10 3/uL) 0. 02 Add Manual Diff NO Immature Gran % (0.0 - 2.0 %) 0.2 Nucleated RBC % (0 - 0 %) 0.0 Nucleated RBCs # (Man) (0.0 - 0.1 x10 3/uL) 0.0 0 Results: labs reviewed, vital signs reviewed, vi verónica signs stable Diagnosis, Assessment Plan Consultants: cardiology, cardiovascular surgery, nephrology, wound care Free Text DxA P Notes Free Text DxA P Notes: 67 YO female with PMHx of HTN, DM, CHF, ESRD on HD who initially presented at [facility] with SOB and fatigue. Sh regan was treated for NSTEMI and acute CHF exacerbation. 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 She is transferred her for CABG evaluation but deemed too high risk for CABG with STS risk score of 17%. 1. NSTEMI/Multivessel CAD 06/27/22: s/p PCI to LCx wit h 2.25 x 20 mm and post dilated with 2.5 NC balloon continue ASA, Brilinta, BB, and statin need staged PCI to mid and proximal LAD in 1-2 w eeks stable 2. Acute on chronic Diastolic CHF volume management per nephrology echo from OSH LVEF 50% 3. ESRD on HD per nephrology 4. Diabetes mellitus per admitting team 5. Hypertension -> hypotension on midodrine continue low-dose beta-susan for CAD bp now stable 6. Toe ulcers/severe PAD 06/26/21: s/p peripheral angiogram and MORPHOLOGIST to th e anterior tibial artery ORE ROASTER of right anterior/posterior tibial artery, n eed staged intervention on a later date PT/OT- Rehab eval ongoing 07/01/22: -STABLE CARDIAC STATUS, CAD/PCI -STABLE PAD -ON MIDODRIN FOR ORTHOSTATIC HYPOTENSION -CANNOT TOLERATE RAAS AGENT (HYPOTENSION) -ON LOW DOSE BB -ON DAP -ON STATIN -ECHO 06-22-22, SMALL TO MOD PERICARDIAL EFFUSIO N, (ESRD ON HD), EF 60-65% -FOLLOW -CARDIAC REHAB EVALUATION IN PROGRESS 07/02/22; -STABLE CARDIAC STATUS -CARDIAC REHAB Electronically Signed by Brian Alfred MD on 1 09/03/21 at 0953 RPT #:[id number] END OF REPORT 2022-07-02 10:32:00-00:00 [facility] Nephrology Progress Note REPORT#:[id number] REPORT STATUS: Signed DATE:07/02/22 TIME: 1032 PATIENT: MESERET MOTTA UNIT #: [id number] ROOM/BED: [place] [id number] : 56 AGE: 67 SEX: F ATTEND: Adonis Gaytan MD ADM AUTHOR: Stella Mojica MD * ALL edits or amendments must be made on the el ectronic/computer document * Subjective Chief complaint: Transferred for CABG HPI: Patient seen and evaluated, discussed with care team, 67-year-old female with history of end-stage renal d isease on chronic hemodialysis Sunday, and Sunday, diabetes mellitus, peripheral arterial disease and hypertension who was transferred to [facility] for CABG. Terrence quevedo initially presented to [facility] in [place] compl aining of shortness of breath. Underwent left heart cath which showed diffuse di sease and patient was transferred for evaluation for CABG. renal consult was requ ested for management of her end-stage renal disease/ hemodialysis. Review of Systems Constitutional: Denies: chills, fatigue, fever. Respiratory: Denies: STEELE (dyspnea on exertion), SOB, wheezing . Cardiovascular: Denies: chest pain, edema, orthopnea. GI: Denies: abdominal pain, anorexia, constipation. Neuro: Denies: bladder dysfunction, confusion, dizzines s. Psych: Denies: agitation, anxiety. Objective General VS/I O: Vital Signs: Date Time Temp Pulse Resp B/P B/P Pulse O2 O2 F low FiO2 Mean Ox Delivery Rate 07/02 0901 92 27 144/74 99 100 07/02 0830 82 20 119/57 82 100 07/02 0800 83 24 124/61 87 100 07/02 0754 100 Nasal 2 cannula 07/02 0730 83 21 119/56 79 100 07/02 0700 82 32 117/71 89 100 07/02 0630 77 18 109/55 76 100 07/02 0433 87 25 143/72 98 100 07/02 0400 72 32 117/60 83 100 07/02 0330 81 21 140/59 90 100 07/02 0300 72 17 123/58 84 100 07/02 0230 74 19 124/60 86 100 07/02 0130 71 29 104/54 75 100 07/02 0100 78 31 129/61 88 100 07/02 0030 79 27 116/57 79 100 07/02 0000 81 20 120/57 82 100 07/01 2331 138 24 130/71 93 100 07/01 2300 89 31 126/63 89 100 07/01 2230 88 20 111/55 77 100 07/01 2221 89 26 115/83 89 100 07/01 2130 85 21 113/60 79 100 07/01 2100 89 22 129/60 87 100 07/014 85 22 131/58 84 100 07/01 2016 83 38 116/57 79 99 07/01 2000 36.0 Nasal 3 cannula 07/01 2000 Nasal 2 cannula 07/01 2000 95 38 107/65 80 98 12/24 1924 36.0 91 25 127/60 99 Nasal 5 cannula 07/01 1606 35.6 77 17 126/61 100 Nasal 5 cannula 07/01 1500 Nasal 2 cannula 24 hour I O ending at 0700: 07/02 0700 07/01 1900 Intake Total 400 Output Total 3834 Balance -3434 Intake, Oral 400 Output, 3834 Hemodialysis PATIENT WEIGHT: Weight (lb): 245 Weight (oz): 9.52 Weight (kg): 111.13 Medications Active Meds + DC'd Last 24 Hrs Epoetin Vanesa-epbx (RETACRIT) 6,000 UNIT TuThSa@2 100 SUBQ Mupirocin (BACTROBAN 2% 22 GM OINTMENT) 1 APPLIC BID NASAL Vancomycin HCl (VANCOMYCIN HCL) 1,000 MG ONCE ON E IV (DC) Sodium Chloride (SODIUM CHLORIDE 0.9%) 250 ML Miscellaneous Information (VANCOMYCIN PHARMACY T O DOSE) 1 EACH ASDIR IV (CKD) Lactulose (LACTULOSE) 20 GM DAILY PRN PRN PO Docusate Sodium (COLACE) 100 MG BID PO Sodium Chloride (OCEAN) 1 SPRAY Q2H PRN PRN NASA L Albuterol/Ipratropium (DUONEB) 3 ML RTQ4H PRN DC N NEB Ticagrelor (BRILINTA) 90 MG Q12HR PO Hydrocodone Bitart/Acetaminophen (NORCO 5/325) 1 TAB Q6H PRN PRN PO Hydrocodone Bitart/Acetaminophen (NORCO 10/325) 1 TAB Q6H PRN PRN PO Atropine Sulfate (ATROPINE SULFATE 0.1MG/ML SYR) 0.5 MG ASDIR PRN IV Sodium Chloride (SODIUM CHLORIDE 0.9%) 500 ML DIR PRN IV Sevelamer Carbonate (RENVELA) 3,200 MG C MEALS P O Epoetin Vanesa-epbx (RETACRIT) 6,000 UNIT TuThSa@2 100 SUBQ (DC) Calcitriol (RocaltroL) 0.5 MCG DAILY PO Midodrine (PROAMATINE) 5 MG 0900,1300,1700 PO Levothyroxine Sodium (LEVOTHYROXINE SODIUM) 150 MCG DAILY 0600 PO Buspirone HCl (BUSPAR) 5 MG BID PO Metoprolol Tartrate (LOPRESSOR) 12.5 MG Q12HR PO Pantoprazole (PROTONIX) 40 MG 0600,1800 PO Midodrine (PROAMATINE) 10 MG DIALYSIS-DOSE BEFOR E PO (CKD) Albumin Human (ALBUMINAR-25%) 12.5 GM ASDIR PRN IV Heparin Sodium (Porcine) (HEPARIN SODIUM) 3,000 UNIT ASDIR PRN DIALYSIS Lidocaine HCl (LIDOCAINE HCL/PF) 0.5 ML ASDIR DC N I-DERMAL (CKD) Mannitol (MANNITOL 25% 12.5GM/50ML) 12.5 GM ASDI R PRN IV Sodium Chloride (SODIUM CHLORIDE 0.9%) 2,000 ML ASDIR PRN IV Sodium Chloride (SODIUM CHLORIDE) 5 ML ASDIR PRN IV Sodium Chloride (SODIUM CHLORIDE) 10 ML ASDIR DC N IV Sodium Chloride (SODIUM CHLORIDE 0.9%) 250 ML DIR PRN IV Aspirin (ASPIRIN) 81 MG C BK PO Atorvastatin Calcium (LIPITOR) 40 MG 2100 PO Insulin Human Lispro (HUMALOG) 0 AC HS SUBQ Dextrose/Water (DEXTROSE 10% IN WATER) 125 ML DIR PRN IV (CKD) Dextrose/Water (DEXTROSE 10% IN WATER) 250 ML DIR PRN IV (CKD) Glucagon (GLUCAGON) 1 MG ASDIR PRN IM Melatonin (Melatonin) 3 MG BEDTIME PRN PRN PO Acetaminophen (TYLENOL) 650 MG Q4H PRN PRN PO Heparin Sodium (HEPARIN 5000 UNITS/ML) 5,000 UNI T ASDIR PRN IV Nitroglycerin (NITROSTAT) 0.4 MG Q5M PRN PRN SL Ondansetron HCl (ZOFRAN) 4 MG Q6H PRN PRN IV Physical Exam General appearance: alert, awake, oriented Head/eyes: atraumatic, normocephalic ENT: normal nose Neck: non-tender, supple/no meningismus Cardiovascular: normal heart sounds, no rub Respiratory: aerating well, symmetric expansion Abdomen: non-tender, soft Genitourinary: no flank pain Extremities: pitting edema, non-tender Musculoskeletal: no CVA tenderness, no tendernes s Neuro/SURGICAL SPECIALIST: alert, normal speech Skin: dry, intact Ulcer: Type/cause: diabetic, arterial Location: foot (bilateral toes) Diagnosis, Assessment Plan Free Text A P: Patient seen and evaluated, discussed with care team, images and laboratories reviewed. End-stage renal disease on c hronic hemodialysis, Sunday, and Sunday, plan for hemodialysis today Status post left heart cath with multi-vessel co ronary artery disease, respiratory evaluation for CABG. Hypertension: Monitor blood pressure closely and adjust medications as needed Hyperlipidemia: Lipitor Diabetes mellitus: Insulin: Monitor blood sugar closely adjust medications as needed Anemia: We will start Epogen 4000 subcu 3 times a week Elevated alkaline phosphatase we will check PTH. 06/23/2022 plan for filtration today if her bloo d pressure allows, had hemodialysis yesterday. See showed hemoglobin 9. 1, platelet 136, blood count 12.1. We will increase Epoge n to 6000 subcu 3 times a week, PTH 660 we will add Rocaltrol 0.5 mcg p.o. daily, will add midodrine 5 mg p.o. 3 times daily to allow for ultrafiltration. 06/24/2022 laboratory for th is morning showed sodium 136, potassium 4.9, CO2 23, BUN 50, creatinine 5.8, phos phorus 7.1 we will add Renvela 2 p.o. with each meal , hemoglobin 9.3, platelet 152, blood count 13.3 , for hemodialysis today, 4 hours, 2K, ultrafiltration 3 to 4 L if tolerated , seen during HD. 06/25/2022 laboratory this tiffany mcfarland showed sodium 137, potassium 4.3, CO2 25, BUN 31, creatinine 4.5, alkaline phosphatase 272, st atus post ultrafiltration yesterday, 3.9 L removed, plan for dialysis in t he morning. 06/26/2022 laboratory this tiffany mcfarland showed sodium 137, potassium 4.4, CO2 22, BUN 39, creatinine 5.4, hemoglob in 9.8, platelet 145, blood count 14, phosphorus 6.8 we will increase Renvela to 4 p.o. with each meal, plan for hemodialysis today, 4 hours, 3K, ultrafiltration 3 to 4 L if tolerat ed 06/27/2022 status post peripheral angiogram/inte rvention yesterday, only had less than 2 hours of dialysis yesterday due to hypotension postprocedure, will plan on hemodialysis today, 4 hours, 3K, ultrafiltration 3 to 4 L if tolerated 06/28/2022 status post hemodialysis yesterday, w ill plan for ultrafiltration today 3 to 4 L if tolerated. Laboratory this manav barba showed sodium 136, potassium 4.2, CO2 22, BUN 22, creatinine 3.9, h emoglobin 8.9, platelet 149, blood count 10.8 06/29/2022 status post ultrafiltration yesterday 4 L removed, plan for hemodialysis today, 4 hours, 3K, ultrafiltration 3 to 4 L if tolerated. 06/30/2022 laboratory this tiffany mcfarland showed sodium 138, potassium 4.2, CO2 24, BUN 22, creatinine 4.1, hemoglobin 9.2, plat elet 195, white blood count 12, status post hemodialysis yesterday, 3 L removed. 07.01.22: Pt feels better. For HD today. will us e K2 [place]. I was then notified her RN that the pt has code blue in the radiology depertment. she is now alert and awake. will continue dialysis without any ch anges in the original order. 07.02.22: pt had code blue yesterday. Did not lo ose pulse. she thinks it was panic attack. had dialysis yesterday with net ne gative fo 3L. Feels better today. BP has been stable and So2 is 100%. will resume TTS schedule. Electrolyts and BMD are all well controlled. Consultants: cardiology, cardiovascular surgery, nephrology, wound care at 1035 RPT #:[id number] END OF REPORT 2022-07-02 09:52:00-00:00 [facility] TANKAGE SUPERVISOR Consultation Note REPORT#:[id number] REPORT STATUS: Signed DATE:07/02/22 TIME: 951 PATIENT: MESERET MOTTA UNIT #: [id number] ROOM/BED: [place] [id number] : 56 AGE: 67 SEX: F ATTEND: Adonis Gaytan MD ADM AUTHOR: Tyra King * ALL edits or amendments must be made on the el [employer]enseronic/computer document * History of Present Illness HPI HPI: 67 y/o female patient with a history of ESRD on hemodialysis, CHTN, DM and hypothyroidism was transferred from [facility] for evaluation for CABG. She complains of vaginal bleeding for the last 6 weeks which now is minimal spotting. She denies any LIVESTOCK NUTRITION TERRITORY MANAGER history. Sh e did state that her Aunt was diagnosed with endometrial cancer but her Aunt d oes not have any other malignancies. History Past Medical History Past medical history: Reports: Atrial fibrillation (self diagnosis), Diabetes mellitus, Hypertension, Kidney disease/stones, Dyslipidemia (esrd). Additional medical history: ESRD on dialysis Past Surgical History Past surgical history: Reports: Cholecystectomy, . Additional surgical history: Fistula X 3 Multiple Diaslysis subclavian catheter placemnet s. back and neck urgery Family History Additional family history: Atrial fibrillation, PVD Social History Alcohol use: Denies EtOH use Drug use: Denies recreational drugs Smoking status for patients 13 years old or olde r: Former Smoker Medication/Allergy-Vaccine Hx Allergies: Coded Allergies: codeine (06/06/01) DRUG INGREDIENT Enzo CODEINE Uncoded Allergies: CODEINE (HALLUCINATION 01/08/09) No Known Contrast Allergies (01/08/09) No Known Food Allergies (01/08/09) No Known Other Allergies (01/08/09) Ambulatory Status Ambulatory status: Wheelchair Review of Systems Additional notes: Constitutional: Denies: chills, fatigue, fever, generalized weak ness, lethargy, malaise. Respiratory: Denies: productive cough (sputum), SOB. GI: Denies: abdominal pain, constipation, diarrhea, nausea, vomiting. : Refers: vaginal spotting Denies: urgency Neuro: Denies: headache Objective Physical Exam Ulcer: Type/cause: diabetic, arterial Location: foot (bilateral toes) Objective General VS/I O: Vital Signs Date Temp Pulse Resp B/P B/P Mean Pulse Ox FiO2 07/01-07/02 96.1-98.1 71-138 17-38 104-144/54-8 3 75-99 98-100 Last Documented: Result Date Time Pulse Ox 100 07/02 0901 B/P 144/74 07/02 0901 B/P Mean 99 07/02 09 Pulse 92 07/02 0901 Resp 27 07/02 09 O2 Delivery Nasal cannula 07/02 0754 O2 Flow Rate 2 07/02 0754 Temp 96.8 07/01 2000 FiO2 21 06/28 2342 Vital Signs: Date Time Temp Pulse Resp B/P B/P Pulse O2 O2 F low FiO2 Mean Ox Delivery Rate 07/02 0901 92 27 144/74 99 100 07/02 0830 82 20 119/57 82 100 07/02 0800 83 24 124/61 87 100 07/02 0754 100 Nasal 2 cannula 07/02 0730 83 21 119/56 79 100 07/02 0700 82 32 117/71 89 100 07/02 0630 77 18 109/55 76 100 07/02 0433 87 25 143/72 98 100 07/02 0400 72 32 117/60 83 100 07/02 0330 81 21 140/59 90 100 07/02 0300 72 17 123/58 84 100 07/02 0230 74 19 124/60 86 100 07/02 0130 71 29 104/54 75 100 07/02 0100 78 31 129/61 88 100 07/02 0030 79 27 116/57 79 100 07/02 0000 81 20 120/57 82 100 07/01 2331 138 24 130/71 93 100 07/01 2300 89 31 126/63 89 100 07/01 2230 88 20 111/55 77 100 07/01 2221 89 26 115/83 89 100 07/01 2130 85 21 113/60 79 100 07/01 2100 89 22 129/60 87 100 07/01 2054 85 22 131/58 84 100 07/01 2016 83 38 116/57 79 99 07/01 2000 96.8 Nasal 3 cannula 07/01 2000 Nasal 2 cannula 07/01 2000 95 38 107/65 80 98 07/01 1924 96.8 91 25 127/60 99 Nasal 5 cannula 07/01 1606 96.1 77 17 126/61 100 Nasal 5 cannula 07/01 1500 Nasal 2 cannula 07/01 1027 98.1 85 18 125/72 89.4 98 Nasal 4 cannula 24 hour I O ending at 0700: 07/02 0700 07/01 1900 Intake Total 400 Output Total 3834 Balance -3434 Intake, Oral 400 Output, 3834 Hemodialysis PATIENT WEIGHT: Weight (lb): 245 Weight (oz): 9.52 Weight (kg): 111.13 Free Text Obj Notes Free Text Obj Notes: Gen: AAOx3 Lungs: normal respiratory effort Neuro: Exam: alert, oriented x3 Abdomen: soft, no rebound, no tenderness LIVESTOCK NUTRITION TERRITORY MANAGER: Atrophic exteral genitalia Speculum exam: Vagina: Atrophic, no vaginal bleeding, Cervix: normal, no active bleeding from cervica l os Uterus: normal, no tenderness [place]: Left - Normal, Right - Normal Diagnosis, Assessment Plan Diagnosis, Assessment Plan Problem List/A P: 1. Postmenopausal bleeding Assessment/Plan: 67 y/o female patient with a history of ESRD on hemodialysis, CHTN, DM and hypothyroidism found to have post-menopausal ble eding most likely due to atrophic endometrium and uterine fibroid. [place] ed patient on US and lab findings. At this time she is having minimal vag inal bleeding. Oriented patient that she needs to fo llow up outpatient with a LIVESTOCK NUTRITION TERRITORY MANAGER for work up for post- menopausal bleeding including; PAP smear and endometrial biopsy. Will sign-off case at this time. Please feel free to call if the patient needs to be re-evaluated by in-house TANKAGE SUPERVISOR at [facility] RPT #:[id number] END OF REPORT 2022-07-01 21:39:00-00:00 [facility] Clinical Note REPORT#:[id number] REPORT STATUS: Signed DATE:07/01/22 TIME: 2138 PATIENT: MESERET MOTTA UNIT #: [id number] ROOM/BED: [place] [id number] : 56 AGE: 67 SEX: F ATTEND: Adonis Gaytan MD ADM AUTHOR: Kiki Brooks NP * ALL edits or amendments must be made on the el [employer]er[employer]/computer document * Clinical Note Note: GALA HERNANDEZ called in ultrasound suite. Upon my ar rival pt was laying supine position, unresponsive with eyes open. She was b reathing and she was on nasal cannula. She did have a puls e. No chest compressions were initiated and no ACLS medications were administered. Crash cart pads a pplied to patient and initial rhythm was sinus tachycardia regular rhythm. P w aves present. The pt began to wake up in the next few seco nds however she was obviously drowsy but as the next few minutes passed she was awake/alert and able to describe the incident in detail. She denied any chest pain. She r eported sudden onset dyspnea/shortness of breath and weakness. She stated that she started to attempt to sit down and she stated that she fell back on the bed and pas sed out. She denied any chest pain but did report SOB. Pt is a dialysis pt and reports she is to receive dialysis today. She also reports recent PCI with stenting within the last week at this facility. Pt appears drowsy/weak. We will send to CCU considering recent PCI/current syncopal episode/SOB/AMS to assess/w orkup etiology of current events. She will need ECHO/labs. Transfer to CCU . I have spent 35 minutes critical care time asses sing, reviewing labs, medicaitons and imaging and discussing plan of c are with the critical care beater tender. at 1933 RPT #:[id number] END OF REPORT 2022-07-01 16:26:00-00:00 [facility] Progress Note REPORT#:[id number] REPORT STATUS: Signed DATE:07/01/22 TIME: 1626 PATIENT: MESERET MOTTA UNIT #: [id number] ROOM/BED: [place] [id number] : 56 AGE: 67 SEX: F ATTEND: Adonis Gaytan MD ADM AUTHOR: Stella Mojica MD * ALL edits or amendments must be made on the [employer]/computer document * Subjective Chief complaint: Transferred for CABG HPI: Patient seen and evaluated, discussed with care team, 67-year-old female with history of end-stage renal d isease on chronic hemodialysis Sunday, and Sunday, diabetes mellitus, peripheral arterial disease and hypertension who was transferred to [facility] for CABG. Terrence quevedo initially presented to [facility] in [place] compl aining of shortness of breath. Underwent left heart cath which showed diffuse di sease and patient was transferred for evaluation for CABG. renal consult was requ ested for management of her end-stage renal disease/ hemodialysis. Comments: patient feels better. her SOB is now improving. This is a late note, pt was seen 11:30 am. I was notified at 3:30 pm that the pt had "code blue" in radiology. never l ost pulse. As per RN, she is now alert and awake. Review of Systems Constitutional: Denies: chills, fatigue, fever. Respiratory: Reports: STEELE (dyspnea on exertion). Denies: SOB, wheezing. Cardiovascular: Reports: edema. Denies: chest pain, orthopnea, p alpitations. GI: Denies: abdominal pain, anorexia, constipation. Neuro: Denies: confusion, dizziness. Psych: Denies: agitation, anxiety. Objective General VS/I O: Vital Signs: Date Time Temp Pulse Resp B/P B/P Pulse O2 O2 F low FiO2 Mean Ox Delivery Rate 07/01 1606 35.6 77 17 126/61 100 Nasal 5 cannula 07/01 1027 36.7 85 18 125/72 89.4 98 Nasal 4 cannula 07/01 0709 36.6 81 20 121/76 90.9 95 Room air 07/01 0325 36.7 79 16 130/70 90.2 98 Nasal cannula 06/30 2259 36.7 78 17 128/64 85.5 100 Nasal cannula 06/30 2146 Nasal 4 cannula 06/30 1938 36.8 77 16 110/68 81.8 99 Nasal cannula 06/30 1630 36.8 81 18 127/68 87.4 99 Room air 24 hour I O ending at 0700: 07/01 0700 06/30 1900 Intake Total Output Total Balance Number 2 Bowel Movements PATIENT WEIGHT: Weight (lb): 245 Weight (oz): 9.52 Weight (kg): 111.13 Medications Active Meds + DC'd Last 24 Hrs Mupirocin (BACTROBAN 2% 22 GM OINTMENT) 1 APPLIC BID NASAL Vancomycin HCl (VANCOMYCIN HCL) 1,000 MG ONCE ON E IV Sodium Chloride (SODIUM CHLORIDE 0.9%) 250 ML Vancomycin HCl (VANCOMYCIN HCL) 1,750 MG ONCE@15 00 IV (DC) Sodium Chloride (NS 0.9%) 500 ML Miscellaneous Information (VANCOMYCIN PHARMACY T O DOSE) 1 EACH ASDIR IV (CKD) Lactulose (LACTULOSE) 20 GM DAILY PRN PRN PO Docusate Sodium (COLACE) 100 MG BID PO Sodium Chloride (OCEAN) 1 SPRAY Q2H PRN PRN NASA L Albuterol/Ipratropium (DUONEB) 3 ML RTQ4H PRN DC N NEB Ticagrelor (BRILINTA) 90 MG Q12HR PO Hydrocodone Bitart/Acetaminophen (NORCO 5/325) 1 TAB Q6H PRN PRN PO Hydrocodone Bitart/Acetaminophen (NORCO 10/325) 1 TAB Q6H PRN PRN PO Atropine Sulfate (ATROPINE SULFATE 0.1MG/ML SYR) 0.5 MG ASDIR PRN IV Sodium Chloride (SODIUM CHLORIDE 0.9%) 500 ML DIR PRN IV Sevelamer Carbonate (RENVELA) 3,200 MG C MEALS P O Epoetin Vanesa-epbx (RETACRIT) 6,000 UNIT TuThSa@2 100 SUBQ Calcitriol (RocaltroL) 0.5 MCG DAILY PO Midodrine (PROAMATINE) 5 MG 0900,1300,1700 PO Levothyroxine Sodium (LEVOTHYROXINE SODIUM) 150 MCG DAILY 0600 PO Buspirone HCl (BUSPAR) 5 MG BID PO Metoprolol Tartrate (LOPRESSOR) 12.5 MG Q12HR PO Pantoprazole (PROTONIX) 40 MG 0600,1800 PO Midodrine (PROAMATINE) 10 MG DIALYSIS-DOSE BEFOR E PO (CKD) Albumin Human (ALBUMINAR-25%) 12.5 GM ASDIR PRN IV Heparin Sodium (Porcine) (HEPARIN SODIUM) 3,000 UNIT ASDIR PRN DIALYSIS Lidocaine HCl (LIDOCAINE HCL/PF) 0.5 ML ASDIR DC N I-DERMAL (CKD) Mannitol (MANNITOL 25% 12.5GM/50ML) 12.5 GM ASDI R PRN IV Sodium Chloride (SODIUM CHLORIDE 0.9%) 2,000 ML ASDIR PRN IV Sodium Chloride (SODIUM CHLORIDE) 5 ML ASDIR PRN IV Sodium Chloride (SODIUM CHLORIDE) 10 ML ASDIR DC N IV Sodium Chloride (SODIUM CHLORIDE 0.9%) 250 ML DIR PRN IV Aspirin (ASPIRIN) 81 MG C BK PO Atorvastatin Calcium (LIPITOR) 40 MG 2100 PO Insulin Human Lispro (HUMALOG) 0 AC HS SUBQ Dextrose/Water (DEXTROSE 10% IN WATER) 125 ML DIR PRN IV (CKD) Dextrose/Water (DEXTROSE 10% IN WATER) 250 ML DIR PRN IV (CKD) Glucagon (GLUCAGON) 1 MG ASDIR PRN IM Melatonin (Melatonin) 3 MG BEDTIME PRN PRN PO Acetaminophen (TYLENOL) 650 MG Q4H PRN PRN PO Heparin Sodium (HEPARIN 5000 UNITS/ML) 5,000 UNI T ASDIR PRN IV Nitroglycerin (NITROSTAT) 0.4 MG Q5M PRN PRN SL Ondansetron HCl (ZOFRAN) 4 MG Q6H PRN PRN IV Physical Exam General appearance: alert, awake, oriented Head/eyes: atraumatic, normocephalic ENT: normal nose Neck: non-tender, supple/no meningismus Cardiovascular: normal heart sounds, no rub Respiratory: aerating well, symmetric expansion Abdomen: non-tender, soft Genitourinary: no flank pain Extremities: pitting edema, non-tender Musculoskeletal: no CVA tenderness, no tendernes s Neuro/SURGICAL SPECIALIST: alert, normal speech Skin: dry, intact Ulcer: Type/cause: diabetic, arterial Location: foot (bilateral toes) Diagnosis, Assessment Plan Free Text A P: Patient seen and evaluated, discussed with care team, images and laboratories reviewed. End-stage renal disease on c hronic hemodialysis, Sunday, and Sunday, plan for hemodialysis today Status post left heart cath with multi-vessel co ronary artery disease, respiratory evaluation for CABG. Hypertension: Monitor blood pressure closely and adjust medications as needed Hyperlipidemia: Lipitor Diabetes mellitus: Insulin: Monitor blood sugar closely adjust medications as needed Anemia: We will start Epogen 4000 subcu 3 times a week Elevated alkaline phosphatase we will check PTH. 06/23/2022 plan for filtration today if her bloo d pressure allows, had hemodialysis yesterday. See showed hemoglobin 9. 1, platelet 136, blood count 12.1. We will increase Epoge n to 6000 subcu 3 times a week, PTH 660 we will add Rocaltrol 0.5 mcg p.o. daily, will add midodrine 5 mg p.o. 3 times daily to allow for ultrafiltration. 06/24/2022 laboratory for th is morning showed sodium 136, potassium 4.9, CO2 23, BUN 50, creatinine 5.8, phos phorus 7.1 we will add Renvela 2 p.o. with each meal , hemoglobin 9.3, platelet 152, blood count 13.3 , for hemodialysis today, 4 hours, 2K, ultrafiltration 3 to 4 L if tolerated , seen during HD. 06/25/2022 laboratory this tiffany mcfarland showed sodium 137, potassium 4.3, CO2 25, BUN 31, creatinine 4.5, alkaline phosphatase 272, st atus post ultrafiltration yesterday, 3.9 L removed, plan for dialysis in t he morning. 06/26/2022 laboratory this tiffany mcfarland showed sodium 137, potassium 4.4, CO2 22, BUN 39, creatinine 5.4, hemoglob in 9.8, platelet 145, blood count 14, phosphorus 6.8 we will increase Renvela to 4 p.o. with each meal, plan for hemodialysis today, 4 hours, 3K, ultrafiltration 3 to 4 L if tolerat ed 06/27/2022 status post peripheral angiogram/inte rvention yesterday, only had less than 2 hours of dialysis yesterday due to hypotension postprocedure, will plan on hemodialysis today, 4 hours, 3K, ultrafiltration 3 to 4 L if tolerated 06/28/2022 status post hemodialysis yesterday, w ill plan for ultrafiltration today 3 to 4 L if tolerated. Laboratory this manav barba showed sodium 136, potassium 4.2, CO2 22, BUN 22, creatinine 3.9, h emoglobin 8.9, platelet 149, blood count 10.8 06/29/2022 status post ultrafiltration yesterday 4 L removed, plan for hemodialysis today, 4 hours, 3K, ultrafiltration 3 to 4 L if tolerated. 06/30/2022 laboratory this tiffany mcfarland showed sodium 138, potassium 4.2, CO2 24, BUN 22, creatinine 4.1, hemoglobin 9.2, plat elet 195, white blood count 12, status post hemodialysis yesterday, 3 L removed. 07.01.22: Pt feels better. For HD today. will us e K2 [place]. I was then notified her RN that the pt has code blue in the radiology depertment. she is now alert and awake. will continue dialysis without any ch anges in the original order. Consultants: cardiology, cardiovascular surgery, nephrology, wound care at 1632 [facility] #:[id number] END OF REPORT 2022-07-01 12:37:00-00:00 [facility] ([facility]) Wound Care Progress Note REPORT#:[id number] REPORT STATUS: Signed DATE:07/01/22 TIME: 1237 PATIENT: MESERET MOTTA UNIT #: [id number] ROOM/BED: [place] [id number] : 56 AGE: 67 SEX: F ATTEND: Adonis Gaytan MD ADM AUTHOR: Sybil Byers MD * ALL edits or amendments must be made on the [employer] document * Subjective Chief complaint: Woundcare FU for foot, hand leg ulcers; less dariana n Objective General Medications: Active Meds + DC'd Last 24 Hrs Vancomycin HCl (VANCOMYCIN HCL) 1,000 MG ONCE ON E IV Sodium Chloride (SODIUM CHLORIDE 0.9%) 250 ML Vancomycin HCl (VANCOMYCIN HCL) 1,750 MG ONCE@15 00 IV (DC) Sodium Chloride (NS 0.9%) 500 ML Miscellaneous Information (VANCOMYCIN PHARMACY T O DOSE) 1 EACH ASDIR IV (CKD) Vancomycin HCl (VANCOMYCIN HCL) 1,000 MG ONCE ON E IV (CAN) Sodium Chloride (SODIUM CHLORIDE 0.9%) 250 ML Lactulose (LACTULOSE) 20 GM DAILY PRN PRN PO Docusate Sodium (COLACE) 100 MG BID PO Sodium Chloride (OCEAN) 1 SPRAY Q2H PRN PRN NASA L Albuterol/Ipratropium (DUONEB) 3 ML RTQ4H PRN DC N NEB Ticagrelor (BRILINTA) 90 MG Q12HR PO Hydrocodone Bitart/Acetaminophen (NORCO 5/325) 1 TAB Q6H PRN PRN PO Hydrocodone Bitart/Acetaminophen (NORCO 10/325) 1 TAB Q6H PRN PRN PO Atropine Sulfate (ATROPINE SULFATE 0.1MG/ML SYR) 0.5 MG ASDIR PRN IV Sodium Chloride (SODIUM CHLORIDE 0.9%) 500 ML DIR PRN IV Sevelamer Carbonate (RENVELA) 3,200 MG C MEALS P O Epoetin Vanesa-epbx (RETACRIT) 6,000 UNIT TuThSa@2 100 SUBQ Calcitriol (RocaltroL) 0.5 MCG DAILY PO Midodrine (PROAMATINE) 5 MG 0900,1300,1700 PO Levothyroxine Sodium (LEVOTHYROXINE SODIUM) 150 MCG DAILY 0600 PO Buspirone HCl (BUSPAR) 5 MG BID PO Metoprolol Tartrate (LOPRESSOR) 12.5 MG Q12HR PO Pantoprazole (PROTONIX) 40 MG 0600,1800 PO Midodrine (PROAMATINE) 10 MG DIALYSIS-DOSE BEFOR E PO (CKD) Albumin Human (ALBUMINAR-25%) 12.5 GM ASDIR PRN IV Heparin Sodium (Porcine) (HEPARIN SODIUM) 3,000 UNIT ASDIR PRN DIALYSIS Lidocaine HCl (LIDOCAINE HCL/PF) 0.5 ML ASDIR DC N I-DERMAL (CKD) Mannitol (MANNITOL 25% 12.5GM/50ML) 12.5 GM ASDI R PRN IV Sodium Chloride (SODIUM CHLORIDE 0.9%) 2,000 ML ASDIR PRN IV Sodium Chloride (SODIUM CHLORIDE) 5 ML ASDIR PRN IV Sodium Chloride (SODIUM CHLORIDE) 10 ML ASDIR DC N IV Sodium Chloride (SODIUM CHLORIDE 0.9%) 250 ML A SDIR PRN IV Aspirin (ASPIRIN) 81 MG C BK PO Atorvastatin Calcium (LIPITOR) 40 MG 2100 PO Insulin Human Lispro (HUMALOG) 0 AC HS SUBQ Dextrose/Water (DEXTROSE 10% IN WATER) 125 ML DIR PRN IV (CKD) Dextrose/Water (DEXTROSE 10% IN WATER) 250 ML DIR PRN IV (CKD) Glucagon (GLUCAGON) 1 MG ASDIR PRN IM Melatonin (Melatonin) 3 MG BEDTIME PRN PRN PO Acetaminophen (TYLENOL) 650 MG Q4H PRN PRN PO Heparin Sodium (HEPARIN 5000 UNITS/ML) 5,000 UNI T ASDIR PRN IV Nitroglycerin (NITROSTAT) 0.4 MG Q5M PRN PRN SL Ondansetron HCl (ZOFRAN) 4 MG Q6H PRN PRN IV Dietitian Nutrition assessment The data set between the solid lines has been im ported from the dietitian's assessment. BMI Calculated: 39.6 Nutrition related diagnosis: Nutrition diagnosis details: Nutrition problem: Nutrition etiology: Nutrition signs and symptoms: Nutrition prescription: Dietitian name: Assessment completed: Physical Exam Skin: Multiple PT ulcers abrasions on B hands, B feet, L>R, w erythema 0ver L dorsum foot L forefoot. Ulcers on dorsum toes, L >R, w erythema @ forefoot, some scabs coming off. LLE warm, RLE cold to ollie ch. Ulcer: Type/cause: diabetic, arterial Location: foot (bilateral toes) Results Findings/Data: Laboratory Tests: 07/01 07/01 07/01 06/30 1027 0615 0509 1936 Chemistry Sodium (134 - 147 mEq/L) 140 Potassium (3.4 - 5.0 mEq/L) 4.6 Chloride (100 - 108 mEq/L) 102 Carbon Dioxide (21 - 33 mEq/l) 27 Anion Gap (0 - 20) 16 BUN (7 - 18 mg/dL) 29 H Creatinine (0.6 - 1.3 mg/dL) 4.7 H Glomerular Filtr Rate (80 - 90) 9.7 L Glucose (70 - 110 mg/dL) 142 H POC Glucose (70 - 110 MG/DL) 251 H 148 H 143 H Calcium (8.0 - 10.5 mg/dL) 9.7 Phosphorus (2.5 - 4.9 MG/DL) 4.6 Magnesium (1.80 - 2.40 mg/dL) 2.20 Hematology WBC (4.5 - 11.0 x10 3/uL) 9.9 RBC (3.54 - 5.02 x10 6/uL) 2.96 L Hgb (11.0 - 15.0 g/dL) 9.2 L Hct (33.0 - 45.0 %) 30.6 L MCV (81.0 - 99.0 fL) 103.4 H MCH (27.0 - 33.0 pg) 31.1 MCHC (33.0 - 37.0 g/dL) 30.1 L RDW (11.5 - 14.5 %) 15.3 H Plt Count (150 - 400 x10 3/uL) 200 MPV (7.0 - 9.0 fL) 9.7 H Neut % (Auto) (56.0 - 77.0 %) 80.7 H Lymph % (Auto) (14.0 - 32.0 %) 7.7 L Kerr % (Auto) (4.8 - 9.0 %) 8.2 Eos % (Auto) (0.3 - 3.7 %) 2.8 Baso % (Auto) (0.0 - 2.0 %) 0.2 Neut # (Auto) (2.0 - 7.6 x10 3/uL) 7.99 H Lymph # (Auto) (1.0 - 3.8 x10 3/uL) 0.76 L Kerr # (Auto) (0.1 - 0.8 x10 3/uL) 0.81 H Eos # (Auto) (0.0 - 0.2 x10 3/uL) 0.28 H Baso # (Auto) (0.0 - 0.2 x10 3/uL) 0.02 Abs Immat Gran (auto) (0.00 - 0.03 x10 3/uL) 0. 04 H Add Manual Diff NO Immature Gran % (0.0 - 2.0 %) 0.4 Nucleated RBC % (0 - 0 %) 0.0 Nucleated RBCs # (Man) (0.0 - 0.1 x10 3/uL) 0.0 0 Toxicology Random Vancomycin (mcg/mL) 22.4 06/30 1759 Chemistry POC Glucose (70 - 110 MG/DL) 152 H Diagnosis, Assessment Plan Free Text A P: Multiple ulcers, B feet, B hands , sp fall, w ar terial ulcers, B feet - improving; cotnBactroban BID to all ulce rs, leave open to air. Xeroform to LLE foot ulcers Wound cx- rare Enterococcus ; XR of L foot - no acute changes, mild degenerative changes. Severe PVD, BLE - sp angio LLE CAD- tx per cardiology DM ESRD on HD [ x] Optimize Nutrition and Glycemic Control [ x] Pressure relieving inte rventions (Low Air Mattress, Prevalon boot, Turn q2h ) [ x] Nursing to implement impaired skin integrit y care plan as per skin care protocol Coordinattion of care D/W [ ] Other MD's [x ] Alex peace [ ] Family [ x ] Nursing [ ] Case Management Electronically Signed by Sybil Byers MD on at 2327 RPT #:[id number] END OF REPORT 2022-07-01 12:19:00-00:00 [facility] ([facility]) Infectious Dis. Progress Note REPORT#:[id number] REPORT STATUS: Signed DATE:07/01/22 TIME: 1219 PATIENT: MESERET MOTTA UNIT #: [id number] ROOM/BED: [place] [id number] : 56 AGE: 67 SEX: F ATTEND: Adonis Gaytan MD ADM AUTHOR: Kasey Mendez MD * ALL edits or amendments must be made on the [employer]/computer document * Subjective HPI: 67 yr old with esrd on hd admitted after multiple falls and left foot vascular ulcers sec to severe PVD. Objective General VS/I O: Vital Signs Date Temp Pulse Resp B/P B/P Mean Pulse Ox FiO2 06/30-07/01 97.9-98.2 77-85 16-20 110-130/64-76 81.8-90.9 95-100 Last Documented: Result Date Time Pulse Ox 98 07/01 1027 B/P 125/72 07/01 1027 B/P Mean 89.4 07/01 1027 O2 Delivery Nasal cannula 07/01 1027 O2 Flow Rate 4 07/01 1027 Temp 98.1 07/01 1027 Pulse 85 07/01 1027 Resp 18 07/01 1027 FiO2 21 06/28 2342 Vital Signs: Date Time Temp Pulse Resp B/P B/P Pulse O2 O2 F low FiO2 Mean Ox Delivery Rate 07/01 1027 98.1 85 18 125/72 89.4 98 Nasal 4 cannula 07/01 0709 97.9 81 20 121/76 90.9 95 Room air 07/01 0325 98.1 79 16 130/70 90.2 98 Nasal cannula 06/30 2259 98.1 78 17 128/64 85.5 100 Nasal cannula 06/306 Nasal 4 cannula 06/30 193 98.2 77 16 110/68 81.8 99 Nasal cannula 06/30 1630 98.2 81 18 127/68 87.4 99 Room air 24 hour I O ending at 0700: 07/01 0700 06/30 1900 Intake Total Output Total Balance Number 2 Bowel Movements PATIENT WEIGHT: Weight (lb): 245 Weight (oz): 9.52 Weight (kg): 111.13 Physical Exam General appearance: obese, alert, awake, oriente d Wound/incision: Location: jarrett left velasquez than right foot ulcers, erythema Site condition: dressing clean dry, dressing in tact Head/Eyes: clear cornea, PERRL ENT: moist mucosal membranes Neck: full range of motion, no JVD Cardiovascular: normal heart sounds Respiratory: rhonchi Abdomen: no CVA tenderness, no distention, no gu arding Genitourinary: no flank pain, no urinary cathete r Extremities: abnormal capill dre refill, abnormal temperature, edema, moves all, normal motor function, no clubbing, no contractu re, no cyanosis Skin: erythema, dry Ulcer: Type/cause: diabetic, arterial Location: foot (bilateral toes) Results Findings/Data: Laboratory Tests 07/01 07/01 07/01 06/30 06/30 1027 0615 0509 1936 1759 Chemistry Sodium (134 - 147 mEq/L) 140 Potassium (3.4 - 5.0 mEq/L) 4.6 Chloride (100 - 108 mEq/L) 102 Carbon Dioxide (21 - 33 mEq/l) 27 Anion Gap (0 - 20) 16 BUN (7 - 18 mg/dL) 29 H Creatinine (0.6 - 1.3 mg/dL) 4.7 H Glomerular Filtr Rate (80 - 90) 9.7 L Glucose (70 - 110 mg/dL) 142 H POC Glucose (70 - 110 MG/DL) 251 H 148 H 143 H 152 H Calcium (8.0 - 10.5 mg/dL) 9.7 Phosphorus (2.5 - 4.9 MG/DL) 4.6 Magnesium (1.80 - 2.40 mg/dL) 2.20 06/30 1309 Chemistry POC Glucose (70 - 110 MG/DL) 120 H Laboratory Tests 07/01 0615 Hematology WBC (4.5 - 11.0 x10 3/uL) 9.9 RBC (3.54 - 5.02 x10 6/uL) 2.96 L Hgb (11.0 - 15.0 g/dL) 9.2 L Hct (33.0 - 45.0 %) 30.6 L MCV (81.0 - 99.0 fL) 103.4 H MCH (27.0 - 33.0 pg) 31.1 MCHC (33.0 - 37.0 g/dL) 30.1 L RDW (11.5 - 14.5 %) 15.3 H Plt Count (150 - 400 x10 3/uL) 200 MPV (7.0 - 9.0 fL) 9.7 H Neut % (Auto) (56.0 - 77.0 %) 80.7 H Lymph % (Auto) (14.0 - 32.0 %) 7.7 L Kerr % (Auto) (4.8 - 9.0 %) 8.2 Eos % (Auto) (0.3 - 3.7 %) 2.8 Baso % (Auto) (0.0 - 2.0 %) 0.2 Neut # (Auto) (2.0 - 7.6 x10 3/uL) 7.99 H Lymph # (Auto) (1.0 - 3.8 x10 3/uL) 0.76 L Kerr # (Auto) (0.1 - 0.8 x10 3/uL) 0.81 H Eos # (Auto) (0.0 - 0.2 x10 3/uL) 0.28 H Baso # (Auto) (0.0 - 0.2 x10 3/uL) 0.02 Abs Immat Gran (auto) (0.00 - 0.03 x10 3/uL) 0 .04 H Add Manual Diff NO Immature Gran % (0.0 - 2.0 %) 0.4 Nucleated RBC % (0 - 0 %) 0.0 Nucleated RBCs # (Man) (0.0 - 0.1 x10 3/uL) 0.0 0 Laboratory Tests 07/01 615 Toxicology Random Vancomycin (mcg/mL) 22.4 Laboratory Tests 07/01/22 0615: [Embedded Image Not Available] 06/30/22 0725: [Embedded Image Not Available] Microbiology: 06/30 1255 URINE: Urine Culture - ORD Microbiology: 06/30 125 URINE: Urine Culture - ORD 06/26 1900 BLOOD: Blood Culture - RES Laboratory Tests Test Result Date Time Chemistry BUN (7 - 18 mg/dL) 29 H 07/01 0615 Creatinine (0.6 - 1.3 mg/dL) 4.7 H 07/01 0615 Hematology WBC (4.5 - 11.0 x10 3/uL) 9.9 07/01 0615 Microbiology Date/Time Procedure - Status Source Growth 06/30 125 Urine Culture - ORD URINE 06/26 1900 Blood Culture - RES BLOOD Active Meds + DC'd Last 24 Hrs Vancomycin HCl (VANCOMYCIN HCL) 1,000 MG ONCE ON E IV Sodium Chloride (SODIUM CHLORIDE 0.9%) 250 ML Vancomycin HCl (VANCOMYCIN HCL) 1,750 MG ONCE@15 00 IV (DC) Sodium Chloride (NS 0.9%) 500 ML Miscellaneous Information (VANCOMYCIN PHARMACY T O DOSE) 1 EACH ASDIR IV (CKD) Vancomycin HCl (VANCOMYCIN HCL) 1,000 MG ONCE ON E IV (CAN) Sodium Chloride (SODIUM CHLORIDE 0.9%) 250 ML Lactulose (LACTULOSE) 20 GM DAILY PRN PRN PO Docusate Sodium (COLACE) 100 MG BID PO Sodium Chloride (OCEAN) 1 SPRAY Q2H PRN PRN NASA L Albuterol/Ipratropium (DUONEB) 3 ML RTQ4H PRN DC N NEB Ticagrelor (BRILINTA) 90 MG Q12HR PO Ampicillin Sodium/Sulbactam Sodium (UNASYN 3GM) 3 GM 2100 IV (DC) Sodium Chloride (SODIUM CHLORIDE 0.9% 100 ML) 1 00 ML Hydrocodone Bitart/Acetaminophen (NORCO 5/325) 1 TAB Q6H PRN PRN PO Hydrocodone Bitart/Acetaminophen (NORCO 10/325) 1 TAB Q6H PRN PRN PO Atropine Sulfate (ATROPINE SULFATE 0.1MG/ML SYR) 0.5 MG ASDIR PRN IV Sodium Chloride (SODIUM CHLORIDE 0.9%) 500 ML DIR PRN IV Sevelamer Carbonate (RENVELA) 3,200 MG C MEALS P O Epoetin Vanesa-epbx (RETACRIT) 6,000 UNIT TuThSa@2 100 SUBQ Calcitriol (RocaltroL) 0.5 MCG DAILY PO Midodrine (PROAMATINE) 5 MG 0900,1300,1700 PO Levothyroxine Sodium (LEVOTHYROXINE SODIUM) 150 MCG DAILY 0600 PO Buspirone HCl (BUSPAR) 5 MG BID PO Metoprolol Tartrate (LOPRESSOR) 12.5 MG Q12HR PO Pantoprazole (PROTONIX) 40 MG 0600,1800 PO Midodrine (PROAMATINE) 10 MG DIALYSIS-DOSE BEFOR E PO (CKD) Albumin Human (ALBUMINAR-25%) 12.5 GM ASDIR PRN IV Heparin Sodium (Porcine) (HEPARIN SODIUM) 3,000 UNIT ASDIR PRN DIALYSIS Lidocaine HCl (LIDOCAINE HCL/PF) 0.5 ML ASDIR DC N I-DERMAL (CKD) Mannitol (MANNITOL 25% 12.5GM/50ML) 12.5 GM ASDI R PRN IV Sodium Chloride (SODIUM CHLORIDE 0.9%) 2,000 ML ASDIR PRN IV Sodium Chloride (SODIUM CHLORIDE) 5 ML ASDIR PRN IV Sodium Chloride (SODIUM CHLORIDE) 10 ML ASDIR DC N IV Sodium Chloride (SODIUM CHLORIDE 0.9%) 250 ML DIR PRN IV Aspirin (ASPIRIN) 81 MG C BK PO Atorvastatin Calcium (LIPITOR) 40 MG 2100 PO Insulin Human Lispro (HUMALOG) 0 AC HS SUBQ Dextrose/Water (DEXTROSE 10% IN WATER) 125 ML DIR PRN IV (CKD) Dextrose/Water (DEXTROSE 10% IN WATER) 250 ML DIR PRN IV (CKD) Glucagon (GLUCAGON) 1 MG ASDIR PRN IM Melatonin (Melatonin) 3 MG BEDTIME PRN PRN PO Acetaminophen (TYLENOL) 650 MG Q4H PRN PRN PO Heparin Sodium (HEPARIN 5000 UNITS/ML) 5,000 UNI T ASDIR PRN IV Nitroglycerin (NITROSTAT) 0.4 MG Q5M PRN PRN SL Ondansetron HCl (ZOFRAN) 4 MG Q6H PRN PRN IV Chemistry: Test Result Date Time Chemistry BUN (7 - 18 mg/dL) 29 07/01 0615 Creatinine (0.6 - 1.3 mg/dL) 4.7 07/01 0615 Recent Impressions: RADIOLOGY - XR FOOT 3 + V LT 06/25 1610 Report Impression - Status: SIGNED Entered: 06/26/2022 0842 IMPRESSION: Soft tissue swelling is seen about the left foot and ankle. Moderate calcaneal spurring at the Achilles tend on and plantar fascia tendon insertion sites. There appears to be prior deformity of the mid shaft to head of the left 1st proxima l phalanx. Mild degenerative changes about the left 1st interpha langeal joint and slight degenerative changes about the left 1st m etatarsophalangeal joint. No acute fracture or dislocation. No plai n film evidence of osteomyelitis. Impression By: Torie Mosher M.D. Diagnosis, Assessment Plan Free Text A P: 1. Severe PVd: vascular ulce rs of the left foot : infection with e. fecalis: s/p vascular intrvention. on vanc post hd day 2 out of 7. cont. 2. Leucocytosis: multifactor ial sec to foot ulcers infection, leukemoid reaction to fluid overload. 3. ESRD: on hd. 4. Dmii: with DFU: on insulin 5. diastolic heart failure 6. hypertension Consultants: cardiology, cardiovascular surgery, nephrology, wound care at 1729 RPT #:[id number] END OF REPORT 2022-07-01 11:51:00-00:00 [facility] Prog.Note-Vancomycin REPORT#:[id number] REPORT STATUS: Signed DATE:07/01/22 TIME: 1151 PATIENT: MESERET MOTTA UNIT #: [id number] ROOM/BED: [place] [id number] : 56 AGE: 67 SEX: F ATTEND: Adonis Gaytan MD ADM AUTHOR: Sharmaine Vanessa [facility] * ALL edits or amendments must be made on the [employer]/computer document * Vancomycin Vancomycin Medication Therapy Goal: Pre-HD vanco goal 15-20mcg/mL Indication for treatment: SSTI Current therapy: Post-HD vancomycin 1000 mg IV once Weight: Actual weight (kg): 111.13 VS and I/O: Vital Signs Date Temp Pulse Resp B/P B/P Mean Pulse Ox FiO2 06/28-07/01 97.5-98.7 69-103 11-20 104-146/63-88 77.9-102.0 95-100 21 72 hours ending at 0700 07/01 0700 06/30 1900 06/30 0700 06/29 1900 06/28 0700 1900 Intake 400 Total Output 3000 4000 Total Balance -3000 400 -4000 Intake, 400 Oral Number 2 1 Bowel Movements Number 2 2 Voids Output, 3000 4000 Hemodialys is 72 Hour I O Total 07/01 0700 06/30 0700 06/29 07 Intake Total 400 Output Total 3000 4000 Balance -3000 -3600 Labs: Laboratory Tests: 07/01 615 Toxicology Random Vancomycin (mcg/mL) 22.4 Laboratory Test : 07/01 615 Chemistry BUN (7 - 18 mg/dL) 29 H Creatinine (0.6 - 1.3 mg/dL) 4.7 H Hematology WBC (4.5 - 11.0 x10 3/uL) 9.9 Microbiology: 06/30 1255 URINE: Urine Culture - ORD Treatment plan: consult, change regimen Regimen: HPI: Ms. Meseret Motta is a 67-year-old female with history of end-stage renal disease on hemodialysis, hypertension, diabetes, hypothyroidism, who was transferred from [facility] on 08/23 for evaluation for CABG. Patient presented here 1 week ago with complaint s of shortness of breath and lower extremity edema. Pharmacy has been consulted to dose vancomycin for SSTI Consulting Provider: Kasey Mendez MD Indication: SSTI Pre-HD Vancomycin Level Goal: 15-20 mcg/ml Day of therapy: 2 of 5 07/01 Assessment and Plan: * WBC 9.9 * Afebrile, Tmax 98.1F documented over 24 hours Microbiology: * 06/23 urine cx - no growth after 48 hours * 06/23 wound cx - enterococcus faecalis (R-tetr acycline) * 06/26 blood cx - no growth after 4 days, 06/30 urine cx - pending Imaging: * 06/22 chest xray - There are patchy ground-gla ss opacities throughout the lungs, not This is a nonspecific finding and may represent pulmonary edema versus an infectious or inflammatory process * 06/25 foot xray - Soft tis eleni swelling is seen about the left foot and ankle. Mild degenerative changes about the left 1st int erphalangeal joint and slight degenerative changes about t he left 1st metatarsophalangeal joint. No plain film evidence of osteomyelitis. Renal function: * ESRD on HD on TuThSa * Last HD session on 06/29, next HD session plan joseluis for today, 07/01 * No residual UOP documented Dosing/monitoring: * Vancomycin loading dose 1750 mg ( 16 mg/kg) x1 ordered on 06/30 * Random vanc level on 07/01 at 0500 was 22.4 mcg/ml, supratherapeutic, pre-HD goal 15-20 mcg/ml Plan: * Considering random vanc le rigo is based on a loading dose and anticipation that some vanc will be cleared du ring HD today, will plan to re-dose vancomycin 1000 mg ( 9 mg/kg) after HD session today * Plan to obtain pre-HD leve l prior to 3rd HD session (tentatively ) if therapy is continued * Pharmacy will continue to follow and monitor at 1159 RPT #:[id number] END OF REPORT 2022-07-01 11:39:00-00:00 [facility] Hospitalist Progress Note REPORT#:[id number] REPORT STATUS: Signed DATE:07/01/22 TIME: 1139 PATIENT: MSEERET MOTTA UNIT #: [id number] ROOM/BED: [place] [id number] : 56 AGE: 67 SEX: F ATTEND: Adonis Gaytan MD ADM AUTHOR: Adonis Gaytan MD * ALL edits or amendments must be made on the Summay/computer document * Subjective Chief complaint: c/o vaginal bleeding for 2 weeks...and had not h ad a period for 15 years previous...concerned that she might have cancer. Objective General VS/I O: Vital Signs: Date Time Temp Pulse Resp B/P B/P Pulse O2 O2 F low FiO2 Mean Ox Delivery Rate 07/01 1027 98.1 85 18 125/72 89.4 98 Nasal 4 cannula 07/01 0709 97.9 81 20 121/76 90.9 95 Room air 07/01 0325 98.1 79 16 130/70 90.2 98 Nasal cannula 06/30 2259 98.1 78 17 128/64 85.5 100 Nasal cannula 06/30 2146 Nasal 4 cannula 06/30 1938 98.2 77 16 110/68 81.8 99 Nasal cannula 06/30 1630 98.2 81 18 127/68 87.4 99 Room air 24 hour I O ending at 0700: 07/01 0700 06/30 1900 Intake Total Output Total Balance Number 2 Bowel Movements PATIENT WEIGHT: Weight (lb): 245 Weight (oz): 9.52 Weight (kg): 111.13 Physical Exam General appearance: alert, awake, oriented Head/Eyes: atraumatic, clear cornea, EOMI, kristopher l conjunctiva/sclera, PERRLA ENT: moist mucosal membranes Neck: supple/no meningismus, no JVD Cardiovascular: normal heart sounds, regular rat e rhythm, no murmur Respiratory: aerating well, clear to auscultatio n, symmetric expansion Abdomen: non-tender, normal bowel sounds, soft, no distention Extremities: edema, moves all Neuro/SURGICAL SPECIALIST: alert, oriented X 3, normal speech, n o motor deficits Ulcer: Type/cause: diabetic, arterial Location: foot (bilateral toes) Psychiatry: normal affect Results Radiology data: Laboratory Tests 07/01/22 0615: [Embedded Image Not Available] 06/30/22 0725: [Embedded Image Not Available] Current Medications Sig/Enedina Start time Last Medication Dose Route Stop Time Status Admin Vancomycin HCl 1,750 MG ONCE@1500 06/30 1500 DC 06/30 Sodium Chloride 500 ML IV 06/30 1859 1833 Miscellaneous 1 EACH ASDIR 06/30 1300 CKD Information IV 07/30 1259 Vancomycin HCl 1,000 MG ONCE ONE 06/30 1300 CAN Sodium Chloride 250 ML IV 06/30 1359 Lactulose 20 GM DAILY PRN PRN 06/30 1045 AC PO 07/30 1044 Docusate Sodium 100 MG BID 06/30 0900 AC 07/01 PO 07/30 0859 0935 Sodium Chloride 1 SPRAY Q2H PRN PRN 06/29 1015 A C 06/29 NASAL 07/29 1014 1724 Albuterol/Ipratropiu 3 ML RTQ4H PRN PRN 06/28 12 15 AC m NEB 07/28 1214 Ticagrelor 90 MG Q12HR 06/28 1115 AC 07/01 PO 07/28 1114 0936 Ampicillin Sodium/ 3 GM 2100 06/27 2100 DC 06/29 Sulbactam Sodium IV 07/04 2059 203 Sodium Chloride 100 ML Hydrocodone Bitart/ 1 TAB Q6H PRN PRN 06/27 1645 AC 06/30 Acetaminophen PO 07/02 1644 0722 Hydrocodone Bitart/ 1 TAB Q6H PRN PRN 06/27 1645 AC 07/01 Acetaminophen PO 07/02 1644 0229 Atropine Sulfate 0.5 MG ASDIR PRN 06/27 1600 AC IV 07/27 1559 Sodium Chloride 500 ML ASDIR PRN 06/27 1600 AC IV 07/27 1559 Sevelamer Carbonate 3,200 MG C MEALS 06/26 0800 AC 07/01 PO 07/26 0759 0935 Epoetin Vanesa-epbx 6,000 UNIT TuThSa@2100 06/24 2 100 AC 06/29 SUBQ 07/24 Calcitriol 0.5 MCG DAILY 06/23 0900 AC 07/01 PO 07/23 0859 0935 Midodrine 5 MG 0900,1300,1700 06/23 09 AC 06/09 4 PO 07/23 0859 0935 Levothyroxine Sodium 150 MCG DAILY 0600 06/23 06 00 AC 07/01 PO 07/23 0559 0609 Buspirone HCl 5 MG BID 06/22 2100 AC 07/01 PO 07/22 2058 0936 Metoprolol Tartrate 12.5 MG Q12HR 06/22 2100 AC 07/01 PO 07/22 2058 0936 Pantoprazole 40 MG 0600,1800 06/22 1800 AC 06/09 4 PO 07/22 175 0609 Midodrine 10 MG DIALYSIS-DOSE 06/22 1545 CKD BEFORE PO 07/22 1544 1856 Albumin Human 12.5 GM ASDIR PRN 06/22 1530 AC IV 07/23 1529 1909 Heparin Sodium 3,000 UNIT ASDIR PRN 06/22 1530 A C 06/28 (Porcine) DIALYSIS 07/22 1529 1512 Lidocaine HCl 0.5 ML ASDIR PRN 06/22 1530 CKD I-DERMAL 07/23 1529 Mannitol 12.5 GM ASDIR PRN 06/22 1530 AC IV 07/23 1529 Sodium Chloride 2,000 ML ASDIR PRN 06/22 1530 AC 06/28 IV 07/23 1529 1512 Sodium Chloride 5 ML ASDIR PRN 06/22 1530 AC IV 07/22 1529 Sodium Chloride 10 ML ASDIR PRN 06/22 1530 AC IV 07/22 1529 1620 Sodium Chloride 250 ML ASDIR PRN 06/22 1530 AC IV 07/22 1529 Aspirin 81 MG C BK 06/22 0800 AC 07/01 PO 07/22 0759 0936 Atorvastatin Calcium 40 MG 2100 06/21 2100 AC PO 07/21 2058 2147 Insulin Human Lispro 0 AC HS 06/21 2100 AC 06/09 3 SUBQ 07/21 2058 181 Dextrose/Water 125 ML ASDIR PRN 06/21 1900 CKD IV 07/21 1859 Dextrose/Water 250 ML ASDIR PRN 06/21 1900 CKD IV 07/21 1859 Glucagon 1 MG ASDIR PRN 06/21 1900 AC IM 07/21 1859 Melatonin 3 MG BEDTIME PRN PRN 06/21 1900 AC PO 07/21 1859 0102 Acetaminophen 650 MG Q4H PRN PRN 06/21 1730 AC 1 08/28 PO 07/21 1729 1301 Heparin Sodium 5,000 UNIT ASDIR PRN 06/21 1730 A C 06/22 IV 07/21 1729 1449 Nitroglycerin 0.4 MG Q5M PRN PRN 06/21 1730 AC SL 07/21 1729 Ondansetron HCl 4 MG Q6H PRN PRN 06/21 1730 AC 1 08/31 IV 07/21 1729 0433 Laboratory Tests: 07/01 07/01 07/01 06/30 1027 0615 0509 1936 Chemistry Sodium (134 - 147 mEq/L) 140 Potassium (3.4 - 5.0 mEq/L) 4.6 Chloride (100 - 108 mEq/L) 102 Carbon Dioxide (21 - 33 mEq/l) 27 Anion Gap (0 - 20) 16 BUN (7 - 18 mg/dL) 29 H Creatinine (0.6 - 1.3 mg/dL) 4.7 H Glomerular Filtr Rate (80 - 90) 9.7 L Glucose (70 - 110 mg/dL) 142 H POC Glucose (70 - 110 MG/DL) 251 H 148 H 143 H Calcium (8.0 - 10.5 mg/dL) 9.7 Phosphorus (2.5 - 4.9 MG/DL) 4.6 Magnesium (1.80 - 2.40 mg/dL) 2.20 Hematology WBC (4.5 - 11.0 x10 3/uL) 9.9 RBC (3.54 - 5.02 x10 6/uL) 2.96 L Hgb (11.0 - 15.0 g/dL) 9.2 L Hct (33.0 - 45.0 %) 30.6 L MCV (81.0 - 99.0 fL) 103.4 H MCH (27.0 - 33.0 pg) 31.1 MCHC (33.0 - 37.0 g/dL) 30.1 L RDW (11.5 - 14.5 %) 15.3 H Plt Count (150 - 400 x10 3/uL) 200 MPV (7.0 - 9.0 fL) 9.7 H Neut % (Auto) (56.0 - 77.0 %) 80.7 H Lymph % (Auto) (14.0 - 32.0 %) 7.7 L Kerr % (Auto) (4.8 - 9.0 %) 8.2 Eos % (Auto) (0.3 - 3.7 %) 2.8 Baso % (Auto) (0.0 - 2.0 %) 0.2 Neut # (Auto) (2.0 - 7.6 x10 3/uL) 7.99 H Lymph # (Auto) (1.0 - 3.8 x10 3/uL) 0.76 L Kerr # (Auto) (0.1 - 0.8 x10 3/uL) 0.81 H Eos # (Auto) (0.0 - 0.2 x10 3/uL) 0.28 H Baso # (Auto) (0.0 - 0.2 x10 3/uL) 0.02 Abs Immat Gran (auto) (0.00 - 0.03 x10 3/uL) 0. 04 H Add Manual Diff NO Immature Gran % (0.0 - 2.0 %) 0.4 Nucleated RBC % (0 - 0 %) 0.0 Nucleated RBCs # (Man) (0.0 - 0.1 x10 3/uL) 0.0 0 Toxicology Random Vancomycin (mcg/mL) 22.4 06/30 06/30 1759 1309 Chemistry POC Glucose (70 - 110 MG/DL) 152 H 120 H Microbiology: 06/30 1255 URINE: Urine Culture - ORD Diagnosis, Assessment Plan Consultants: cardiology, cardiovascular surgery, nephrology, wound care Free Text DxA P Notes Free text DxA P notes: Assessment and plans: Three-vessel coronary artery disease CV surgery following. Dopplers, alexandro duplex were ordered patient is off the heparin drip on aspirin, Brilinta, atorvastatin, metoprolol -echo from OSH LVEF 50% cardiology seen -S/p PCI to left circumflex 06/27 Patient needs staged PCI to mid and proximal LAD in 1 to 2 weeks as outpatient DUB 07/01 - bleeding for 2 weeks and had no vaginal bleeding for 15 years...ask director industrial [employer] to see and check pelvic ultrasound. Severe PAD/toe ulcer: Status post MORPHOLOGIST and atherec cheri with CSI followed by MORPHOLOGIST with stable balloon on left anterior and posterior tibial artery, for r ight anterior and posterior tibial artery Will need staged intervention as p er cardiology. 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 Plan for peripheral angiogram in the morning as per c ardiology 06/29 Acute respiratory failure with hypoxemia Patient presented with supplemental nasal cannu la oxygen -Pulmonary edema, pleural effusion on CT chest, no PE Patient needs to be evaluated for home oxygen o nce patient is medically cleared for discharge On 2 L oxygen via nasal cannula 06/29 DuoNeb treatment Pulmonary consulted -Continue to optimize heart failure management, blood pressure control and Outpatient sleep study Leukocytosis: -CT chest result done -Afebrile -Patient has multiple ulcers in hands and feet. Wound cx growing ent fecalis, rocephin switched to unasyn 07/04 -blood culture 06/26 (was not ordered on admissi on) no growth till now 06/30- WBC increasing on unasyn. consult ID. ran prieto? 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 Pat ient lives alone. 06/28 Elevated LFTs Secondary to hepatic congestion Monitor LFTs Type 2 diabetes mellitus on insulin sliding scale Diabetic diet Hypothyroidism Resume Synthroid Anemia of chronic disease -Transfuse for Hb <7 -No bleeding hypotension on midodrine on empiric IV CTX check labs in am SCD for DVT prophylaxis. Disposition: S/p PCI and 1 stent placement in le ft circumflex, plan for peripheral angiogram to right anterior and poste rior tibial artery. On 2 L oxygen via nasal cannula. On Unasyn. Patient ricki es alone. Case management consulted for inpatient rehab. Continue inpatien t care. 06/30- WBC worsening. ID consulted. awaiting tra nsfer to rehab. 07/01- WBC better. ABX changed from unas yn to VANC. pt c/o DUB. 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 Quality: Gen Med Crit Care VTE Prophylaxis VTE prophylaxis initiated: yes Current Medications Current medication review: I attest that the foregoing medication list in [facility] medical record is true, accurate, and complete to the best of my knowled ge. Electronically Signed by Adonis Gaytan MD on 06/09 10/28 at 1141 RPT #:[id number] END OF REPORT 2022-07-01 11:04:00-00:00 [facility]) Pulmonology Progress Note REPORT#:[id number] REPORT STATUS: Signed DATE:07/01/22 TIME: 1104 PATIENT: MESERET MOTTA UNIT #: [id number] ROOM/BED: [place] [id number] : 56 AGE: 67 SEX: F ATTEND: Adonis Gaytan MD ADM AUTHOR: Chris Estevez MD * ALL edits or amendments must be made on the Summay/computer document * Subjective Chief complaint: SOB Comments: Doing well today Shortness of breath improved ROS: no nausea/vomitting or chest pain Objective General VS/I O: Last Documented: Result Date Time Pulse Ox 98 07/01 1027 B/P 125/72 07/01 1027 B/P Mean 89.4 07/01 1027 O2 Delivery Nasal cannula 07/01 1027 O2 Flow Rate 4 07/01 1027 Temp 98.1 07/01 1027 Pulse 85 07/01 1027 Resp 18 07/01 1027 FiO2 21 06/28 2342 24 hour I O ending at 0700: 06/30 1900 07/01 0700 Intake Total Output Total Balance Number 2 Bowel Movements PATIENT WEIGHT: Weight (lb): 245 Weight (oz): 9.52 Weight (kg): 111.13 Physical Exam General appearance: chronically ill appearing Head/eyes: atraumatic, normocephalic, PERRL Neck: supple/no meningismus, no bruit/NL carotid s, no lymphadenopathy Cardiovascular: normal S1/S2, no rub, no gallop Respiratory/chest: decreased breath sounds, symmetric expansion, no distress, no tenderness Abdomen: soft, normal bowel sounds, no distentio n, no guarding Extremities: edema, no clubbing Neuro/SURGICAL SPECIALIST: alert, oriented X 3, no motor deficit s Skin: dry, normal color Ulcer: Type/cause: diabetic, arterial Location: foot (bilateral toes) Psychiatry: normal affect, no hallucinations Diagnosis, Assessment Plan Free Text A P: 1- Acute hypoxemic respiratory failure 2- Acute pulm edema 3- Cardiology disease status post PCI 4- Chronic diastolic heart failure HFpEF 5- End-stage renal disease on hemodialysis 6- Hypertension/DM2 7- Peripheral vascular disease/ischemic ulcer 8- Obesity ? Underlying JAMILAH - Continue nasal cannula O2, titrate to keep sat s above 94% - Hemodialysis with fluid removal per nephrology service - DuoNeb every 4 hours as needed - Continue to optimize heart failure management, blood pressure control - Wound care - Outpatient sleep study - DVT prophylaxis Seems to be improving Pending rehab Electronically Signed by Chris Estevez MD on 06/09 10/28 at 1105 RPT #:[id number] END OF REPORT 2022-07-01 10:41:00-00:00 [facility] ([facility]) Cardiology Progress Note REPORT#:[id number] REPORT STATUS: Signed DATE:07/01/22 TIME: 1041 PATIENT: MESERET MOTTA UNIT #: [id number] ROOM/BED: 3307-1 : 56 AGE: 67 SEX: F ATTEND: Adonis Gaytan MD ADM AUTHOR: Brian Alfred MD * ALL edits or amendments must be made on the el ectronic/computer document * Subjective Chief complaint: feeling better Objective General VS/I O: 24 hour I O ending at 0700: 07/01 0700 06/30 1900 Intake Total Output Total Balance Number 2 Bowel Movements Vital Signs: Date Time Temp Pulse Resp B/P B/P Pulse O2 O2 F low FiO2 Mean Ox Delivery Rate 07/01 1027 98.1 85 18 125/72 89.4 98 Nasal 4 cannula 07/01 0709 97.9 81 20 121/76 90.9 95 Room air 07/01 0325 98.1 79 16 130/70 90.2 98 Nasal cannula 06/30 2259 98.1 78 17 128/64 85.5 100 Nasal cannula 06/30 2146 Nasal 4 cannula 06/30 1938 98.2 77 16 110/68 81.8 99 Nasal cannula 06/30 1630 98.2 81 18 127/68 87.4 99 Room air PATIENT WEIGHT: Weight (lb): 245 Weight (oz): 9.52 Weight (kg): 111.13 Medications: Medication(s) Ordered: Ahfs Category Unknown Sig/Enedina Start time Last Medication Dose Route Stop Time Status Admin Melatonin 3 MG BEDTIME PRN PRN 06/21 1900 AC PO 07/21 185 0102 Anti-Infective Agents Sig/Enedina Start time Last Medication Dose Route Stop Time Status Admin Vancomycin HCl 1,750 MG ONCE@1500 06/30 1500 DC 06/30 Sodium Chloride 500 ML IV 06/30 1859 1833 Miscellaneous 1 EACH ASDIR 06/30 1300 CKD Information IV 07/30 1259 Vancomycin HCl 1,000 MG ONCE ONE 06/30 1300 CAN Sodium Chloride 250 ML IV 06/30 1359 Ampicillin Sodium/ 3 GM 2100 06/27 2100 DC 06/09 2 Sulbactam Sodium IV 07/04 2059 2035 Sodium Chloride 100 ML Autonomic Drugs Sig/Enedina Start time Last Medication Dose Route Stop Time Status Admin Albuterol/Ipratropium 3 ML RTQ4H PRN PRN 06/28 1215 AC NEB 07/28 1214 Atropine Sulfate 0.5 MG ASDIR PRN 06/27 1600 AC IV 07/27 1559 Midodrine 5 MG 0900,1300,1700 06/23 0900 AC PO 07/23 0859 0935 Midodrine 10 MG DIALYSIS-DOSE BEFORE 06/22 1545 CKD 12/19 PO 07/22 1544 1856 Blood Derivatives Sig/Enedina Start time Last Medication Dose Route Stop Time Status Admin Albumin Human 12.5 GM ASDIR PRN 06/22 1530 AC 1 08/28 IV 07/23 1529 1909 Blood Formation,Coagulation Sig/Enedina Start time Last Medication Dose Route Stop Time Status Admin Ticagrelor 90 MG Q12HR 06/28 1115 AC 07/01 PO 07/28 1114 0936 Epoetin Vanesa-epbx 6,000 UNIT TuThSa@2100 06/24 2100 AC 06/29 SUBQ 07/24 205 203 Heparin Sodium 3,000 UNIT ASDIR PRN 06/22 1530 AC 06/28 (Porcine) DIALYSIS 07/22 1529 1512 Heparin Sodium 5,000 UNIT ASDIR PRN 06/21 1730 AC 06/22 IV 07/21 1729 1449 Cardiovascular Drugs Sig/Enedina Start time Last Medication Dose Route Stop Time Status Admin Metoprolol Tartrate 12.5 MG Q12HR 06/22 2100 AC 07/01 PO 07/22 2058 0936 Lidocaine HCl 0.5 ML ASDIR PRN 06/22 1530 CKD I-DERMAL 07/23 1529 Atorvastatin Calcium 40 MG 06/21 2100 AC 08/31 PO 07/21 2058 214 Nitroglycerin 0.4 MG Q5M PRN PRN 06/21 1730 AC SL 07/21 1729 Central Nervous System Agents Sig/Enedina Start time Last Medication Dose Route Stop Time Status Admin Hydrocodone Bitart/ 1 TAB Q6H PRN PRN 06/27 164 5 AC 06/30 Acetaminophen PO 07/02 1644 0722 Hydrocodone Bitart/ 1 TAB Q6H PRN PRN 06/27 164 5 AC 07/01 Acetaminophen PO 07/02 1644 0229 Buspirone HCl 5 MG BID 06/22 2100 AC 07/01 PO 07/22 205 0936 Aspirin 81 MG C BK 06/22 0800 AC 07/01 PO 07/22 0759 0936 Acetaminophen 650 MG Q4H PRN PRN 06/21 1730 AC 06/27 PO 07/21 1729 1301 Electrolytic, Caloric, And Bailey Sig/Enedina Start time Last Medication Dose Route Stop Time Status Admin Lactulose 20 GM DAILY PRN PRN 06/30 1045 AC PO 07/30 1044 Sodium Chloride 500 ML ASDIR PRN 06/27 1600 AC IV 07/27 1559 Sevelamer Carbonate 3,200 MG C MEALS 06/26 0800 AC 07/01 PO 07/26 0759 0935 Mannitol 12.5 GM ASDIR PRN 06/22 1530 AC IV 07/23 1529 Sodium Chloride 2,000 ML ASDIR PRN 06/22 1530 A C 06/28 IV 07/23 1529 1512 Sodium Chloride 5 ML ASDIR PRN 06/22 1530 AC IV 07/22 1529 Sodium Chloride 10 ML ASDIR PRN 06/22 1530 AC 1 08/30 IV 07/22 1529 1620 Sodium Chloride 250 ML ASDIR PRN 06/22 1530 AC IV 07/22 1529 Dextrose/Water 125 ML ASDIR PRN 06/21 1900 CKD IV 07/21 1859 Dextrose/Water 250 ML ASDIR PRN 06/21 1900 CKD IV 07/21 1859 Eye, Ear, Nose And Throat (Een Sig/Enedina Start time Last Medication Dose Route Stop Time Status Admin Sodium Chloride 1 SPRAY Q2H PRN PRN 06/29 1015 AC 06/29 NASAL 07/29 1014 1724 Gastrointestinal Drugs Sig/Enedina Start time Last Medication Dose Route Stop Time Status Admin Docusate Sodium 100 MG BID 06/30 09 AC 07/01 PO 07/30 0859 0935 Pantoprazole 40 MG 0600,1800 06/22 1800 AC 06/09 4 PO 07/22 1759 0609 Ondansetron HCl 4 MG Q6H PRN PRN 06/21 1730 AC 06/30 IV 07/21 1729 0433 Hormones And Synthetic Substit Sig/Enedina Start time Last Medication Dose Route Stop Time Status Admin Levothyroxine Sodium 150 MCG DAILY 0600 06/23 0 600 AC 07/01 PO 07/23 0559 0609 Insulin Human Lispro 0 AC HS 06/21 2100 AC 06/09 3 SUBQ 07/21 2058 1818 Glucagon 1 MG ASDIR PRN 06/21 1900 AC IM 07/21 1859 Vitamins Sig/Enedina Start time Last Medication Dose Route Stop Time Status Admin Calcitriol 0.5 MCG DAILY 06/23 0900 AC 07/01 PO 07/23 0859 0935 Physical Exam General appearance: alert, awake, oriented Neck: non-tender, no JVD Cardiovascular: CV assessment: regular rate and rhythm Respiratory: decreased breath sounds, on oxygen, no distress Abdomen: non-tender, obese Genitourinary: no flank pain, no urinary cathete r Lower extremity: LE assessment: edema, abnormal pedal pulse Musculoskeletal: normal inspection Neuro/SURGICAL SPECIALIST: alert, oriented X 3, normal speech Skin: scabs lower extremities Ulcer: Type/cause: diabetic, arterial Location: foot (bilateral toes) Psychiatry: normal affect, normal mood Results Findings/Data: Laboratory Tests 07/01 07/01 07/01 06/30 06/30 1027 0615 0509 1936 1759 Chemistry Sodium (134 - 147 mEq/L) 140 Potassium (3.4 - 5.0 mEq/L) 4.6 Chloride (100 - 108 mEq/L) 102 Carbon Dioxide (21 - 33 mEq/l) 27 Anion Gap (0 - 20) 16 BUN (7 - 18 mg/dL) 29 H Creatinine (0.6 - 1.3 mg/dL) 4.7 H Glomerular Filtr Rate (80 - 90) 9.7 L Glucose (70 - 110 mg/dL) 142 H POC Glucose (70 - 110 MG/DL) 251 H 148 H 143 H 152 H Calcium (8.0 - 10.5 mg/dL) 9.7 Phosphorus (2.5 - 4.9 MG/DL) 4.6 Magnesium (1.80 - 2.40 mg/dL) 2.20 06/30 1309 Chemistry POC Glucose (70 - 110 MG/DL) 120 H Laboratory Tests 07/01 0615 Hematology WBC (4.5 - 11.0 x10 3/uL) 9.9 RBC (3.54 - 5.02 x10 6/uL) 2.96 L Hgb (11.0 - 15.0 g/dL) 9.2 L Hct (33.0 - 45.0 %) 30.6 L MCV (81.0 - 99.0 fL) 103.4 H MCH (27.0 - 33.0 pg) 31.1 MCHC (33.0 - 37.0 g/dL) 30.1 L RDW (11.5 - 14.5 %) 15.3 H Plt Count (150 - 400 x10 3/uL) 200 MPV (7.0 - 9.0 fL) 9.7 H Neut % (Auto) (56.0 - 77.0 %) 80.7 H Lymph % (Auto) (14.0 - 32.0 %) 7.7 L Kerr % (Auto) (4.8 - 9.0 %) 8.2 Eos % (Auto) (0.3 - 3.7 %) 2.8 Baso % (Auto) (0.0 - 2.0 %) 0.2 Neut # (Auto) (2.0 - 7.6 x10 3/uL) 7.99 H Lymph # (Auto) (1.0 - 3.8 x10 3/uL) 0.76 L Kerr # (Auto) (0.1 - 0.8 x10 3/uL) 0.81 H Eos # (Auto) (0.0 - 0.2 x10 3/uL) 0.28 H Baso # (Auto) (0.0 - 0.2 x10 3/uL) 0.02 Abs Immat Gran (auto) (0.00 - 0.03 x10 3/uL) 0. 04 H Add Manual Diff NO Immature Gran % (0.0 - 2.0 %) 0.4 Nucleated RBC % (0 - 0 %) 0.0 Nucleated RBCs # (Man) (0.0 - 0.1 x10 3/uL) 0.0 0 Laboratory Tests 07/01 0615 Toxicology Random Vancomycin (mcg/mL) 22.4 Laboratory Tests 07/01 0615 Chemistry Magnesium (1.80 - 2.40 mg/dL) 2.20 Results: labs reviewed, vital signs reviewed, vi veróniac signs stable Diagnosis, Assessment Plan Consultants: cardiology, cardiovascular surgery, nephrology, wound care Free Text DxA P Notes Free Text DxA P Notes: 67 YO female with PMHx of HTN, DM, CHF, ESRD on HD who initially presented at [facility] with SOB and fatigue. Sh regan was treated for NSTEMI and acute CHF exacerbation. 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 She is transferred her for CABG evaluation but deemed too high risk for CABG with STS risk score of 17%. 1. NSTEMI/Multivessel CAD 06/27/22: s/p PCI to LCx wit h 2.25 x 20 mm and post dilated with 2.5 NC balloon continue ASA, Brilinta, BB, and statin need staged PCI to mid and proximal LAD in 1-2 w eeks stable 2. Acute on chronic Diastolic CHF volume management per nephrology echo from OSH LVEF 50% 3. ESRD on HD per nephrology 4. Diabetes mellitus per admitting team 5. Hypertension -> hypotension on midodrine continue low-dose beta-susan for CAD bp now stable 6. Toe ulcers/severe PAD 06/26/21: s/p peripheral angiogram and MORPHOLOGIST to th e anterior tibial artery ORE ROASTER of right anterior/posterior tibial artery, n eed staged intervention on a later date PT/OT- Rehab eval ongoing 07/01/22: -STABLE CARDIAC STATUS, CAD/PCI -STABLE PAD -ON MIDODRIN FOR ORTHOSTATIC HYPOTENSION -CANNOT TOLERATE RAAS AGENT (HYPOTENSION) -ON LOW DOSE BB -ON DAP -ON STATIN -ECHO 06-22-22, SMALL TO MOD PERICARDIAL EFFUSIO N, (ESRD ON HD), EF 60-65% -FOLLOW -CARDIAC REHAB EVALUATION IN PROGRESS Electronically Signed by Brian Alfred MD on 1 09/02/21 at 0925 RPT #:[id number] END OF REPORT 2022-07-01 07:23:00-00:00 [facility] ([facility]) Rehab Progress Note REPORT#:[id number] REPORT STATUS: Signed DATE:07/01/22 TIME: 722 PATIENT: MESERET MOTTA UNIT #: [id number] ROOM/BED: [place] [id number] : 56 AGE: 67 SEX: F ATTEND: Adonis Gaytan MD ADM AUTHOR: Shelton Vega * ALL edits or amendments must be made on the Summay/computer document * Subjective Chief complaint: rehab follow-up Doing well Eating fair NAD Denies TABARES/N/V/D/CP 14 systems reviewed and neg. except that above. Objective General VS: Vital Signs: Date Time Temp Pulse Resp B/P B/P Pulse O2 O2 F low FiO2 Mean Ox Delivery Rate 07/01 0709 97.9 81 20 121/76 90.9 95 Room air 07/01 0325 98.1 79 16 130/70 90.2 98 Nasal cannula 06/309 98.1 78 17 128/64 85.5 100 Nasal cannula 06/30 2146 Nasal 4 cannula 06/30 1938 98.2 77 16 110/68 81.8 99 Nasal cannula 06/30 1630 98.2 81 18 127/68 87.4 99 Room air PATIENT WEIGHT: Weight (lb): 245 Weight (oz): 9.52 Weight (kg): 111.13 Medications: Active Meds + DC'd Last 24 Hrs Vancomycin HCl (VANCOMYCIN HCL) 1,750 MG ONCE@15 00 IV (DC) Sodium Chloride (NS 0.9%) 500 ML Miscellaneous Information (VANCOMYCIN PHARMACY T O DOSE) 1 EACH ASDIR IV (CKD) Vancomycin HCl (VANCOMYCIN HCL) 1,000 MG ONCE ON E IV (CAN) Sodium Chloride (SODIUM CHLORIDE 0.9%) 250 ML Lactulose (LACTULOSE) 20 GM DAILY PRN PRN PO Docusate Sodium (COLACE) 100 MG BID PO Sodium Chloride (OCEAN) 1 SPRAY Q2H PRN PRN NASA L Albuterol/Ipratropium (DUONEB) 3 ML RTQ4H PRN DC N NEB Ticagrelor (BRILINTA) 90 MG Q12HR PO Ampicillin Sodium/Sulbactam Sodium (UNASYN 3GM) 3 GM 2100 IV (DC) Sodium Chloride (SODIUM CHLORIDE 0.9% 100 ML) 1 00 ML Hydrocodone Bitart/Acetaminophen (NORCO 5/325) 1 TAB Q6H PRN PRN PO Hydrocodone Bitart/Acetaminophen (NORCO 10/325) 1 TAB Q6H PRN PRN PO Atropine Sulfate (ATROPINE SULFATE 0.1MG/ML SYR) 0.5 MG ASDIR PRN IV Sodium Chloride (SODIUM CHLORIDE 0.9%) 500 ML A SDIR PRN IV Sevelamer Carbonate (RENVELA) 3,200 MG C MEALS P O Epoetin Vanesa-epbx (RETACRIT) 6,000 UNIT TuThSa@2 100 SUBQ Calcitriol (RocaltroL) 0.5 MCG DAILY PO Midodrine (PROAMATINE) 5 MG 0900,1300,1700 PO Levothyroxine Sodium (LEVOTHYROXINE SODIUM) 150 MCG DAILY 0600 PO Buspirone HCl (BUSPAR) 5 MG BID PO Metoprolol Tartrate (LOPRESSOR) 12.5 MG Q12HR PO Pantoprazole (PROTONIX) 40 MG 0600,1800 PO Midodrine (PROAMATINE) 10 MG DIALYSIS-DOSE BEFOR E PO (CKD) Albumin Human (ALBUMINAR-25%) 12.5 GM ASDIR PRN IV Heparin Sodium (Porcine) (HEPARIN SODIUM) 3,000 UNIT ASDIR PRN DIALYSIS Lidocaine HCl (LIDOCAINE HCL/PF) 0.5 ML ASDIR DC N I-DERMAL (CKD) Mannitol (MANNITOL 25% 12.5GM/50ML) 12.5 GM ASDI R PRN IV Sodium Chloride (SODIUM CHLORIDE 0.9%) 2,000 ML ASDIR PRN IV Sodium Chloride (SODIUM CHLORIDE) 5 ML ASDIR PRN IV Sodium Chloride (SODIUM CHLORIDE) 10 ML ASDIR DC N IV Sodium Chloride (SODIUM CHLORIDE 0.9%) 250 ML DIR PRN IV Aspirin (ASPIRIN) 81 MG C BK PO Atorvastatin Calcium (LIPITOR) 40 MG 2100 PO Insulin Human Lispro (HUMALOG) 0 AC HS SUBQ Dextrose/Water (DEXTROSE 10% IN WATER) 125 ML DIR PRN IV (CKD) Dextrose/Water (DEXTROSE 10% IN WATER) 250 ML DIR PRN IV (CKD) Glucagon (GLUCAGON) 1 MG ASDIR PRN IM Melatonin (Melatonin) 3 MG BEDTIME PRN PRN PO Acetaminophen (TYLENOL) 650 MG Q4H PRN PRN PO Heparin Sodium (HEPARIN 5000 UNITS/ML) 5,000 UNI T ASDIR PRN IV Nitroglycerin (NITROSTAT) 0.4 MG Q5M PRN PRN SL Ondansetron HCl (ZOFRAN) 4 MG Q6H PRN PRN IV Functional Progress Functional progress: Weightbearing: No Restriction Ambulation Distance: 22', 30', 52' Progression: Forward Backward Lateral, Right Lateral, Left Assistance Level: Supervision or Set-up Gait Deviations: SLOW PACE SHORT STEPS Base of Support - Wide Effects of Treatment: Balance Improved Function Improved Gait quality improved Post TX Precautions: CALL BUTTON WITHIN REACH ON 4L/ MIN 02 Call Light in Reach Review Plan of Care: Yes PT charges: [place] [id number] FT/Therap. Activity 14700 Gait Cmt: Pt agreable to gait training, slow c adence, steppage gait L LE. Pt states has been ambulating independently short distances to restroom. If this is the patient's last treatment, this e ntry serves as the discharge summary: Y Start Time: 921 Stop Time: 934 Treatment Time : ( minutes) 0:13 Completed by: Christine Pratt . BED MOBILITY: Yes Rolling Right/Left: Supervision or Set-up Supine to Sit: Supervision or Set-up Sit to Supine: Supervision or Set-up Scooting in bed: Supervision or Set-up TRANSFERS: Yes Bed to/from chair: Supervision or Set-up Sit to/from stand: Supervision or Set-up Physical Exam General appearance: alert, awake Psych: alert, oriented x 3 HEENT: anicteric, mucosal membranes moist Neck: supple, no JVD Cardiovascular: regular rate rhythm, no murmur Respiratory: aerating well, clear bilaterally Abdomen: bowel sounds present, non-distended, so ft, non-tender Skin: BLE and hand multi wounds Ulcer: Type/cause: diabetic, arterial Location: foot (bilateral toes) Musculoskeletal - general: Musculoskeletal - general: swelling (BLE), MMT BUE +3/5 BLE HF -3/5 KE +3/5 Neuro/SURGICAL SPECIALIST: sensory deficit ( decrease BLE), alert, oriented X 3, CNII-XII intact, normal speech Genitourinary: Results Findings/Data: Laboratory Tests: 07/01 06/30 06/30 06/30 0509 1936 1759 1309 Chemistry POC Glucose (70 - 110 MG/DL) 148 H 143 H 152 H 120 H 06/30 0725 Chemistry Sodium (134 - 147 mEq/L) 138 Potassium (3.4 - 5.0 mEq/L) 4.2 Chloride (100 - 108 mEq/L) 100 Carbon Dioxide (21 - 33 mEq/l) 24 Anion Gap (0 - 20) 19 BUN (7 - 18 mg/dL) 22 H Creatinine (0.6 - 1.3 mg/dL) 4.1 H Glomerular Filtr Rate (80 - 90) 11.4 L Glucose (70 - 110 mg/dL) 220 H Calcium (8.0 - 10.5 mg/dL) 9.6 Hematology WBC (4.5 - 11.0 x10 3/uL) 12.0 H RBC (3.54 - 5.02 x10 6/uL) 3.06 L Hgb (11.0 - 15.0 g/dL) 9.2 L Hct (33.0 - 45.0 %) 31.2 L MCV (81.0 - 99.0 fL) 102.0 H MCH (27.0 - 33.0 pg) 30.1 MCHC (33.0 - 37.0 g/dL) 29.5 L RDW (11.5 - 14.5 %) 14.9 H Plt Count (150 - 400 x10 3/uL) 195 MPV (7.0 - 9.0 fL) 9.1 H Neut % (Auto) (56.0 - 77.0 %) 90.8 H Lymph % (Auto) (14.0 - 32.0 %) 3.1 L Kerr % (Auto) (4.8 - 9.0 %) 4.9 Eos % (Auto) (0.3 - 3.7 %) 0.5 Baso % (Auto) (0.0 - 2.0 %) 0.1 Neut # (Auto) (2.0 - 7.6 x10 3/uL) 10.86 H Lymph # (Auto) (1.0 - 3.8 x10 3/uL) 0.37 L Kerr # (Auto) (0.1 - 0.8 x10 3/uL) 0.59 Eos # (Auto) (0.0 - 0.2 x10 3/uL) 0.06 Baso # (Auto) (0.0 - 0.2 x10 3/uL) 0.01 Abs Immat Gran (auto) (0.00 - 0.03 x10 3/uL) 0. 07 H Add Manual Diff NO Immature Gran % (0.0 - 2.0 %) 0.6 Nucleated RBC % (0 - 0 %) 0.0 Nucleated RBCs # (Man) (0.0 - 0.1 x10 3/uL) 0.0 0 Microbiology: 06/30 1255 URINE: Urine Culture - ORD Diagnosis, Assessment Plan Free Text A P: 67-year-old female with weakness and impaired mo bility 2/2 cardiac myopathy positive for NSTEMI Multivessel CAD, acute on ch ronic diastolic heart failure -End-stage renal disease on hemodialysis -Severe PVD-(s/p MORPHOLOGIST and ath erectomy with CSI followed by MORPHOLOGIST with TAVR balloon on left anterior and posterior tibial artery. CT O of right anterior/posterior tibial artery) -Uremic Neuropathy -Uremic Myopathy -Generalized weakness -Impaired mobility, gait, balance, ADLs, and end urance -Acute hypoxemia resp failure -Acute on chronic diastolic HF -Diabetes type 2 with hyperglycemia -Hypertension -COPD -Multiple wounds on feet and hands Plan: Continue supportive and preventative care Wound care team is following wound care manageme nt Continue PT/OT Out of bed to chair Work on ADLs, strength, bed mobility, transfers, gait DVT prophylaxis on SCD Strict fall and safety precautions Monitor p.o. intake and nutrition Strict decubitus precautions Monitor labs Wound care on outsole caser labs Advance therapies as tolerated. Patient particip ating in therapies Pt would benefit from a comprehensive rehab prog mitul in IPR addressing her impaired functional mobility, gait, balance and endurance impairments, while being closely monitored by P MR and medical teams. She is at high risk for acute HF issues, cardiac arrhythmia, re occlusion to B LE. Pt is agreeable and capable of the 3 hour therap y session required TT:33 mins: time spent reviewing chart, meds, la bs notes and assessing pt and discussing rehab poc. Answered all quesions Consultants: cardiology, cardiovascular surgery, nephrology, wound care Rehab attestation: . at 0456 RPT #:[id number] END OF REPORT 2022-06-30 16:40:00-00:00 [id number] [address] PATIENT NAME: MESERET MOTTA ADMIT DATE: 06/22 ACCOUNT NO: [id number] ROOM NO: [id number] AGE: 67 REPORT TYPE: CONSULTATION REPORT SEX: F ADMITTING PHYSICIAN:Delmy Ashton MD ATTENDING PHYSICIAN:Adonis Gaytan MD CONSULTATION DATE: 06/30/2022 INFECTIOUS DISEASE CONSULT NOTE REASON FOR CONSULTATION: Elevated white cell cou nt in a patient who was admitted with weakness, debility, status post fa ll, multiple lower and upper extremities wounds. HISTORY OF PRESENT ILLNESS: The patient is a 67-year-old white female with past medical history significant for hypertension, di abetes, CHF, end-stage renal disease, on dialysis for two and a half years, admitted to [facility] on 06/22/2022 from [facility] for evaluation of coronary artery bypass surgery. The patient presented to the [facility] with shortness of breath and fatigue. She was diagnosed with non-S T elevation HI, CHF exacerbation. She had a left heart catheterizati on, which showed severe multivessel coronary artery disease. She was tra nsferred to [facility]. CT surgeon was consulted for possible CABG. Her case was presented at a conference and recommended attempt to PCI. She was found to have severe peripheral vascular disease and has multiple wou nds, especially left foot multiple infected wounds. Lo wer extremity artery she underwent status post MORPHOLOGIST, thrombectomy with CSI follow ed by MORPHOLOGIST and have her balloon in the left anterior and posterior tibial artery. CT of the right ant erior and posterior tibial artery. She underwent wound cultures of the left foot, which grew rare Enterococcus faecalis. She was given Unasyn. She was also found to have significant pyuria and bacteriuria. She complain s of 2-3 weeks history of chronic dysuria. Urine cultures did not grow any bacteria. Her white cell count was initially on 13,00 0, which increased to 14,000 on 06/26 and decreased to 10,000 yesterday. Today it went up to 12,000, so Infectious Disease was consulted on a stat basis. A t the time of my consultation, the patient is lying in bed. Reports continues to have shortness of b reath, getting dialysis every day. She has reported improvement in the left fo ot wounds. She continues to have dysuria. PAST MEDICAL HISTORY: Significant for diabetes; hypertension; end-stage renal disease, on dialysis; CHF; c oronary artery disease; atrial fibrillation; as per the patient dyslipidemia. PAST SURGICAL HISTORY: Dialysis, catheter placem ent, C-sections and cholecystectomy, AV fistula placement, multiple subclavian dialysis catheter placement, back surgery, neck surgery. SOCIAL HISTORY: Former smoker, no alcohol, no d rug abuse. PATIENT NAME: MESERET MOTTA [id number] MEDICATIONS: Antibiotics pizarro, the patie nt is on Unasyn 3 grams IV q.24 hours, started on 06/26. Prior to that, the patient rec eived Rocephin from 06/23 to 06/26. PHYSICAL EXAMINATION: GENERAL: Moderately obese, middle-aged w bel female, sitting up at the side of the bed. VITAL SIGNS: T-max 98.2, heart rate 81, respiration 18, blood pressure 127/68. HEENT: Head atraumatic, normocephalic. Face symm etrical. Conjunctivae pale. Oropharynx is moist. NECK: Supple. LUNGS: Crackles anteriorly. Rhonchi present. No bronchial breath sounds, no wheezes. HEART: Regular rate and rhythm. ABDOMEN: Obese. EXTREMITIES: Both upper and lower extremity, mul tiple healing wounds are present. Left foot dorsalis pedis and tibialis p ulses are palpable. Multiple full-thickness skin loss, ulcers are present. No signs of infection. Protective sensation is absent. No exposed bones . No lymphangitic spread. LABORATORY DATA: WBC of 12, hemoglobin 9, hemato crit 31, platelets of 195, creatinine is 4.1, which is chronic. A foot x-ray showing soft tissue swelling. This is a moderate calcaneal spur. ASSESSMENT AND PLAN: A 67-year-old lady, diabete s, hypertension, peripheral neuropathy, end-stage renal disease, on dialysis ; admitted with shortness of breath, weakness; found to h ave multivessel coronary artery disease and awaiting for CABG and found to have severe peripheral vas cular disease. 1. The patient had a fall at home 2-1/2 weeks ag o, multiple wounds, left foot ischemic ulcerations and culture showing Enteroc occus faecalis, treated with Unasyn and now has simple cellulitis. Recommend to change antibiotics to vancomycin 1 gram post-dialysis. Discontinue Dianne syn. 2. Dysuria, significant pyuria on admis chelo secondary to renal insufficiency. Continues to have dysuria. Obtain urine cultures and also obtain 3-phase bone scan of the left foot to evaluate for osteomyeli tis. 3. Leukocytosis, likely leukemoid reaction to pu lmonary edema. Thank you very much. We will follow. Dictated By: Kasey Mendez MD Date Dictated: 06/30/2022 16:40:31 Date Transcribed: 06/30/2022 19:18:11 EB/ELAN Receipt ID: [id number] Authenticated by Kasey Mendez MD On 08:38:52 AM PATIENT NAME: MESERET MOTTA [id number] at 0839 PATIENT NAME: MESERET MOTTA [id number] 14:22:00-00:00 [facility] ([facility]) Pharmacy Prog.Note-Vancomycin REPORT#:[id number] REPORT STATUS: Signed DATE:06/30/22 TIME: 1422 PATIENT: MESERET MOTTA UNIT #: [id number] ROOM/BED: [place] [address] : 56 AGE: 67 SEX: F ATTEND: Adonis Gaytan MD ADM AUTHOR: Dania Márquez [facility] * ALL edits or amendments must be made on the [employer]/computer document * Vancomycin Vancomycin Medication Therapy Goal: Pre-HD vanco goal 15-20mcg/mL Indication for treatment: SSTI Current therapy: Vancomycin pharmacy to dose Day of therapy: 1 Weight: Actual weight (kg): 111.1 VS and I/O: Vital Signs Date Temp Pulse Resp B/P B/P Mean Pulse Ox FiO2 06/27-06/30 97.3-98.7 69-108 11- 104-177/63-99 0.0-125.4 95-100 21 72 hours ending at 0700 06/30 0700 06/29 1900 06/29 0700 06/28 1900 06/27 0700 1900 Intake 400 1620.00 Total Output 3000 4000 3100 Total Balance -3000 400 -4000 -1480.00 Intake, IV 920.00 Intake, 400 700 Oral Number 1 0 Bowel Movements Number 2 2 2 Voids Output, 3000 4000 3100 Hemodialys is Output, 0 Stool 72 Hour I O Total 06/30 0700 06/29 0700 06/28 0700 Intake Total 400 1620.00 Output Total 3000 4000 3100 Balance -3000 -3600 -1480.00 Labs: Laboratory Test : 06/30 0725 Chemistry BUN (7 - 18 mg/dL) 22 H Creatinine (0.6 - 1.3 mg/dL) 4.1 H Hematology WBC (4.5 - 11.0 x10 3/uL) 12.0 H Microbiology: 06/30 1255 URINE: Urine Culture - ORD Treatment plan: initiation of therapy Regimen: Ms Meseret Motta is a 67-year-old female with h istory of end-stage renal disease on hemodialysis, hyp ertension, diabetes, hypothyroidism transferred from [facility] on 06/22 for evaluation for CABG. Patient presented here 1 week ago with complaints of shortness of breath and lower extremity edema. During hospital stay she was found to have liver congestion secondary to CHF. Echo showed EF 50%. She underwent cardiac c atheterization on 06/19 which showed 80% to 90% mid LAD disease, 70% d istal 70% distal RCA stenosis. Patient transferred here for CV surgery evaluati on for CABG. Today on 06/30, Dr Mendez dc'ed Unasysn and consulted pharmacy to dose van comycin for SSTI with pre-HD vanc goal 15-20mcg/mL A/P 06/30: * Afebrile, WBC 12 - up from 10 yesterday, BUN/s cr /4.1, ESRD on HD TuThSa, last HD on 06/29 * Micro: urine cx (06/30) - ordered, blood cx (06/26) - NGP 72h, L great toe cx (06/26) - E faecalis, urine cx (06/23) - negativ e * Image: LLE XR (06/25) - no plain film evidence of osteomyelitis * Day 1 of vancomycin: last HD yesterday , no HD today, will order a vancomycin 1.75 ( 16mg/kg) IV x 1 now a nd will order a vanco random level tomorrow morning at 5am, next HD tomorrow on 07/01, will order a VRL before HD @5am tomorrow on Sunday 07/01 * Pharmacy will monitor and adjust vanco dose to goal Thank you Dr Mendez for this consult! * at 5536 RPT #:[id number] END OF REPORT 2022-06-30 12:47:00-00:00 [facility]) Pulmonology Progress Note REPORT#:[id number] REPORT STATUS: Signed DATE:06/30/22 TIME: 1247 PATIENT: MESERET MOTTA UNIT #: [id number] ROOM/BED: [place] [address] : 56 AGE: 67 SEX: F ATTEND: Adonis Gaytan MD ADM AUTHOR: Chris Estevez MD * ALL edits or amendments must be made on the el ectronic/computer document * Subjective Chief complaint: SOB Comments: doing well sob is better remains on oxygen ROS: no n/v/cp Objective General VS/I O: Last Documented: Result Date Time Pulse Ox 100 06/30 713 B/P 133/67 06/30 713 B/P Mean 88.8 06/30 713 O2 Delivery Nasal cannula 06/30 713 O2 Flow Rate 2 06/30 713 Temp 97.7 06/30 713 Pulse 99 06/30 713 Resp 18 06/30 713 FiO2 21 06/28 2342 24 hour I O ending at 0700: 06/29 1900 06/30 07 Intake Total Output Total 3000 Balance -3000 Number 1 Bowel Movements Number Voids 2 Output, 3000 Hemodialysis PATIENT WEIGHT: Weight (lb): 245 Weight (oz): 9.52 Weight (kg): 111.13 Physical Exam General appearance: chronically ill appearing Head/eyes: atraumatic, normocephalic, PERRL Neck: supple/no meningismus, no bruit/NL carotid s, no lymphadenopathy Cardiovascular: normal S1/S2, no rub, no gallop Respiratory/chest: decreased breath sounds, symmetric expansion, no distress, no tenderness Abdomen: soft, normal bowel sounds, no distentio n, no guarding Extremities: edema, no clubbing Neuro/SURGICAL SPECIALIST: alert, oriented X 3, no motor deficit s Skin: dry, normal color Ulcer: Type/cause: diabetic, arterial Location: foot (bilateral toes) Psychiatry: normal affect, no hallucinations Results Findings/Data: Laboratory Tests 06/30/22724: [Embedded Image Not Available] Laboratory Tests 06/29 07 Chemistry Sodium (134 - 147 mEq/L) 138 Potassium (3.4 - 5.0 mEq/L) 4.2 Chloride (100 - 108 mEq/L) 100 Carbon Dioxide (21 - 33 mEq/l) 24 Anion Gap (0 - 20) 19 BUN (7 - 18 mg/dL) 22 H Creatinine (0.6 - 1.3 mg/dL) 4.1 H Glomerular Filtr Rate (80 - 90) 11.4 L Glucose (70 - 110 mg/dL) 220 H POC Glucose (70 - 110 MG/DL) 108 172 H Calcium (8.0 - 10.5 mg/dL) 9.6 Laboratory Tests 06/30 0725 Hematology WBC (4.5 - 11.0 x10 3/uL) 12.0 H RBC (3.54 - 5.02 x10 6/uL) 3.06 L Hgb (11.0 - 15.0 g/dL) 9.2 L Hct (33.0 - 45.0 %) 31.2 L MCV (81.0 - 99.0 fL) 102.0 H MCH (27.0 - 33.0 pg) 30.1 MCHC (33.0 - 37.0 g/dL) 29.5 L RDW (11.5 - 14.5 %) 14.9 H Plt Count (150 - 400 x10 3/uL) 195 MPV (7.0 - 9.0 fL) 9.1 H Neut % (Auto) (56.0 - 77.0 %) 90.8 H Lymph % (Auto) (14.0 - 32.0 %) 3.1 L Kerr % (Auto) (4.8 - 9.0 %) 4.9 Eos % (Auto) (0.3 - 3.7 %) 0.5 Baso % (Auto) (0.0 - 2.0 %) 0.1 Neut # (Auto) (2.0 - 7.6 x10 3/uL) 10.86 H Lymph # (Auto) (1.0 - 3.8 x10 3/uL) 0.37 L Kerr # (Auto) (0.1 - 0.8 x10 3/uL) 0.59 Eos # (Auto) (0.0 - 0.2 x10 3/uL) 0.06 Baso # (Auto) (0.0 - 0.2 x10 3/uL) 0.01 Abs Immat Gran (auto) (0.00 - 0.03 x10 3/uL) 0. 07 H Add Manual Diff NO Immature Gran % (0.0 - 2.0 %) 0.6 Nucleated RBC % (0 - 0 %) 0.0 Nucleated RBCs # (Man) (0.0 - 0.1 x10 3/uL) 0. 00 Diagnosis, Assessment Plan Free Text A P: 1- Acute hypoxemic respiratory failure 2- Acute pulm edema 3- Cardiology disease status post PCI 4- Chronic diastolic heart failure HFpEF 5- End-stage renal disease on hemodialysis 6- Hypertension/DM2 7- Peripheral vascular disease/ischemic ulcer 8- Obesity ? Underlying JAMILAH - Continue nasal cannula O2, titrate to keep sat s above 94% - Hemodialysis with fluid removal per nephrology service - DuoNeb every 4 hours as needed - Continue to optimize heart failure management, blood pressure control - Wound care - Outpatient sleep study - DVT prophylaxis Electronically Signed by Chris Estevez MD on 06/09 09/27 at 1249 RPT #:[id number] END OF REPORT 2022-06-30 12:31:00-00:00 [facility] ([facility]) Wound Care Progress Note REPORT#:[id number] REPORT STATUS: Signed DATE:06/30/22 TIME: 1231 PATIENT: MESERET MOTTA UNIT #: [id number] ROOM/BED: [place] [address] : 56 AGE: 67 SEX: F ATTEND: Adonis Gaytan MD ADM AUTHOR: Sybil Byers MD * ALL edits or amendments must be made on the [employer]/computer document * Subjective Chief complaint: Woundcare FU for foot, hand leg ulcers; less dariana n Objective General Medications: Active Meds + DC'd Last 24 Hrs Lactulose (LACTULOSE) 20 GM DAILY PRN PRN PO Docusate Sodium (COLACE) 100 MG BID PO Sodium Chloride (OCEAN) 1 SPRAY Q2H PRN PRN NASA L Albuterol/Ipratropium (DUONEB) 3 ML RTQ4H PRN DC N NEB Ticagrelor (BRILINTA) 90 MG Q12HR PO Ampicillin Sodium/Sulbactam Sodium (UNASYN 3GM) 3 GM 2100 IV Sodium Chloride (SODIUM CHLORIDE 0.9% 100 ML) 1 00 ML Hydrocodone Bitart/Acetaminophen (NORCO 5/325) 1 TAB Q6H PRN PRN PO Hydrocodone Bitart/Acetaminophen (NORCO 10/325) 1 TAB Q6H PRN PRN PO Atropine Sulfate (ATROPINE SULFATE 0.1MG/ML SYR) 0.5 MG ASDIR PRN IV Sodium Chloride (SODIUM CHLORIDE 0.9%) 500 ML DIR PRN IV Sevelamer Carbonate (RENVELA) 3,200 MG C MEALS P O Epoetin Vanesa-epbx (RETACRIT) 6,000 UNIT TuThSa@ 2100 SUBQ Calcitriol (RocaltroL) 0.5 MCG DAILY PO Midodrine (PROAMATINE) 5 MG 0900,1300,1700 PO Levothyroxine Sodium (LEVOTHYROXINE SODIUM) 150 MCG DAILY 0600 PO Buspirone HCl (BUSPAR) 5 MG BID PO Metoprolol Tartrate (LOPRESSOR) 12.5 MG Q12HR PO Pantoprazole (PROTONIX) 40 MG 0600,1800 PO Midodrine (PROAMATINE) 10 MG DIALYSIS-DOSE BEFOR E PO (CKD) Albumin Human (ALBUMINAR-25%) 12.5 GM ASDIR PRN IV Heparin Sodium (Porcine) (HEPARIN SODIUM) 3,000 UNIT ASDIR PRN DIALYSIS Lidocaine HCl (LIDOCAINE HCL/PF) 0.5 ML ASDIR DC N I-DERMAL (CKD) Mannitol (MANNITOL 25% 12.5GM/50ML) 12.5 GM ASDI R PRN IV Sodium Chloride (SODIUM CHLORIDE 0.9%) 2,000 ML ASDIR PRN IV Sodium Chloride (SODIUM CHLORIDE) 5 ML ASDIR PRN IV Sodium Chloride (SODIUM CHLORIDE) 10 ML ASDIR DC N IV Sodium Chloride (SODIUM CHLORIDE 0.9%) 250 ML DIR PRN IV Aspirin (ASPIRIN) 81 MG C BK PO Atorvastatin Calcium (LIPITOR) 40 MG 2100 PO Insulin Human Lispro (HUMALOG) 0 AC HS SUBQ Dextrose/Water (DEXTROSE 10% IN WATER) 125 ML DIR PRN IV (CKD) Dextrose/Water (DEXTROSE 10% IN WATER) 250 ML DIR PRN IV (CKD) Glucagon (GLUCAGON) 1 MG ASDIR PRN IM Melatonin (Melatonin) 3 MG BEDTIME PRN PRN PO Acetaminophen (TYLENOL) 650 MG Q4H PRN PRN PO Heparin Sodium (HEPARIN 5000 UNITS/ML) 5,000 UNI T ASDIR PRN IV Nitroglycerin (NITROSTAT) 0.4 MG Q5M PRN PRN SL Ondansetron HCl (ZOFRAN) 4 MG Q6H PRN PRN IV Dietitian Nutrition assessment The data set between the solid lines has been im ported from the dietitian's assessment. BMI Calculated: 39.6 Nutrition related diagnosis: Nutrition diagnosis details: Nutrition problem: Nutrition etiology: Nutrition signs and symptoms: Nutrition prescription: Dietitian name: Assessment completed: Physical Exam General appearance: awake Skin: Multiple PT ulcers abrasions on B hands, B feet, L>R, w erythema 0ver L dorsum foot L forefoot. Ulcers on dorsum toes, L >R, w erythema @ forefoot, some scabs coming off. LLE warm, RLE cold to ollie ch. Ulcer: Type/cause: diabetic, arterial Location: foot (bilateral toes) Results Findings/Data: Laboratory Tests: 06/30 06/29 06/29 0725 1958 1536 Chemistry Sodium (134 - 147 mEq/L) 138 Potassium (3.4 - 5.0 mEq/L) 4.2 Chloride (100 - 108 mEq/L) 100 Carbon Dioxide (21 - 33 mEq/l) 24 Anion Gap (0 - 20) 19 BUN (7 - 18 mg/dL) 22 H Creatinine (0.6 - 1.3 mg/dL) 4.1 H Glomerular Filtr Rate (80 - 90) 11.4 L Glucose (70 - 110 mg/dL) 220 H POC Glucose (70 - 110 MG/DL) 172 H 108 Calcium (8.0 - 10.5 mg/dL) 9.6 Hematology WBC (4.5 - 11.0 x10 3/uL) 12.0 H RBC (3.54 - 5.02 x10 6/uL) 3.06 L Hgb (11.0 - 15.0 g/dL) 9.2 L Hct (33.0 - 45.0 %) 31.2 L MCV (81.0 - 99.0 fL) 102.0 H MCH (27.0 - 33.0 pg) 30.1 MCHC (33.0 - 37.0 g/dL) 29.5 L RDW (11.5 - 14.5 %) 14.9 H Plt Count (150 - 400 x10 3/uL) 195 MPV (7.0 - 9.0 fL) 9.1 H Neut % (Auto) (56.0 - 77.0 %) 90.8 H Lymph % (Auto) (14.0 - 32.0 %) 3.1 L Kerr % (Auto) (4.8 - 9.0 %) 4.9 Eos % (Auto) (0.3 - 3.7 %) 0.5 Baso % (Auto) (0.0 - 2.0 %) 0.1 Neut # (Auto) (2.0 - 7.6 x10 3/uL) 10.86 H Lymph # (Auto) (1.0 - 3.8 x10 3/uL) 0.37 L Kerr # (Auto) (0.1 - 0.8 x10 3/uL) 0.59 Eos # (Auto) (0.0 - 0.2 x10 3/uL) 0.06 Baso # (Auto) (0.0 - 0.2 x10 3/uL) 0.01 Abs Immat Gran (auto) (0.00 - 0.03 x10 3/uL) 0. 07 H Add Manual Diff NO Immature Gran % (0.0 - 2.0 %) 0.6 Nucleated RBC % (0 - 0 %) 0.0 Nucleated RBCs # (Man) (0.0 - 0.1 x10 3/uL) 0.0 0 Diagnosis, Assessment Plan Free Text A P: Multiple ulcers, B feet, B hands , sp fall, w ar terial ulcers, B feet - Bactroban BID to all ulcers, leave open to air. Xeroform to LLE foot ulcers Wound cx- rare Enterococcus ; XR of L foot - no acute changes, mild degenerative changes. Severe PVD, BLE - sp angio LLE CAD- tx per cardiology DM ESRD on HD [ x] Optimize Nutrition and Glycemic Control [ x] Pressure relieving inte rventions (Low Air Mattress, Prevalon boot, Turn q2h ) [ x] Nursing to implement impaired skin integrit y care plan as per skin care protocol Coordinattion of care D/W [ ] Other MD's [x ] Alex peace [ ] Family [ x ] Nursing [ ] Case Management Electronically Signed by Sybil Byers MD on at 1233 RPT #:[id number] END OF REPORT 2022-06-30 12:31:00-00:00 [facility] ([facility]) Clinical Note REPORT#:[id number] REPORT STATUS: Signed DATE:06/30/22 TIME: 1231 PATIENT: MESERET MOTTA UNIT #: [id number] ROOM/BED: [place] [address] : 56 AGE: 67 SEX: F ATTEND: Adonis Gaytan MD ADM AUTHOR: Kasey Mendez MD * ALL edits or amendments must be made on the [employer] document * Clinical Note Note: pt seen,examined,dictation to follow at 1721 RPT #:[id number] END OF REPORT 2022-06-30 10:13:00-00:00 [facility] ([facility]) Cardiology Progress Note REPORT#:[id number] REPORT STATUS: Signed DATE:06/30/22 TIME: 1013 PATIENT: MESERET MOTTA UNIT #: [id number] ROOM/BED: [place] [id number] : 56 AGE: 67 SEX: F ATTEND: Adonis Gaytan MD ADM AUTHOR: Sabrina Tirado INDUSTRIAL RELATIONS DIRECTOR * ALL edits or amendments must be made on the [employer] document * Sabrina Tirado 06/30/22 1013: Subjective Chief complaint: feeling better Objective General VS/I O: Laboratory Tests 06/30/22 0725: [Embedded Image Not Available] 06/29/22 0600: [Embedded Image Not Available] Current Medications Sig/Enedina Start time Last Medication Dose Route Stop Time Status Admin Docusate Sodium 100 MG BID 06/30 09 AC PO 07/30 0859 Sodium Chloride 1 SPRAY Q2H PRN PRN 06/29 1015 A C 06/29 NASAL 07/29 1014 1724 Albuterol/Ipratropiu 3 ML RTQ4H PRN PRN 06/28 12 15 AC m NEB 07/28 1214 Ticagrelor 90 MG Q12HR 06/28 1115 AC 06/29 PO 07/28 1114 2036 Ampicillin Sodium/ 3 GM 2100 06/27 2100 AC 06/29 Sulbactam Sodium IV 07/04 2059 203 Sodium Chloride 100 ML Hydrocodone Bitart/ 1 TAB Q6H PRN PRN 06/27 1645 AC 06/30 Acetaminophen PO 07/02 1644 0722 Hydrocodone Bitart/ 1 TAB Q6H PRN PRN 06/27 1645 AC 06/30 Acetaminophen PO 07/02 1644 0433 Atropine Sulfate 0.5 MG ASDIR PRN 06/27 1600 AC IV 07/27 1559 Sodium Chloride 500 ML ASDIR PRN 06/27 1600 AC IV 07/27 1559 Sevelamer Carbonate 3,200 MG C MEALS 06/26 0800 AC 06/29 PO 07/26 0759 1724 Epoetin Vanesa-epbx 6,000 UNIT TuThSa@06/24 2 100 AC 06/29 SUBQ 07/24 Calcitriol 0.5 MCG DAILY 06/23 09 AC 06/29 PO 07/23 0859 0823 Midodrine 5 MG 0900,1300,1700 06/23 09 AC 06/09 2 PO 07/23 0859 1724 Levothyroxine Sodium 150 MCG DAILY 0600 06/23 06 00 AC 06/30 PO 07/23 0559 0656 Buspirone HCl 5 MG BID 06/22 2100 AC 06/29 PO 07/22 Metoprolol Tartrate 12.5 MG Q12HR 06/22 2100 AC 06/29 PO 07/22 Pantoprazole 40 MG 0600,1800 06/22 1800 AC 06/30 PO 07/22 1759 0656 Midodrine 10 MG DIALYSIS-DOSE 06/22 1545 CKD BEFORE PO 07/22 1544 1856 Albumin Human 12.5 GM ASDIR PRN 06/22 1530 AC IV 07/23 1529 1909 Heparin Sodium 3,000 UNIT ASDIR PRN 06/22 1530 A C 06/28 (Porcine) DIALYSIS 07/22 1529 1512 Lidocaine HCl 0.5 ML ASDIR PRN 06/22 1530 CKD I-DERMAL 07/23 1529 Mannitol 12.5 GM ASDIR PRN 06/22 1530 AC IV 07/23 1529 Sodium Chloride 2,000 ML ASDIR PRN 06/22 1530 AC 06/28 IV 07/23 1529 1512 Sodium Chloride 5 ML ASDIR PRN 06/22 1530 AC IV 07/22 1529 Sodium Chloride 10 ML ASDIR PRN 06/22 1530 AC IV 07/22 1529 1620 Sodium Chloride 250 ML ASDIR PRN 06/22 1530 AC IV 07/22 1529 Aspirin 81 MG C BK 06/22 0800 AC 06/29 PO 07/22 0759 0824 Atorvastatin Calcium 40 MG 2100 06/21 2100 AC PO 07/21 205 2037 Insulin Human Lispro 0 AC HS 06/21 2100 AC 06/29 SUBQ 07/21 205 0823 Dextrose/Water 125 ML ASDIR PRN 06/21 1900 CKD IV 07/21 1859 Dextrose/Water 250 ML ASDIR PRN 06/21 1900 CKD IV 07/21 1859 Glucagon 1 MG ASDIR PRN 06/21 1900 AC IM 07/21 1859 Melatonin 3 MG BEDTIME PRN PRN 06/21 1900 AC PO 07/21 1859 0102 Acetaminophen 650 MG Q4H PRN PRN 06/21 1730 AC 1 08/28 PO 07/21 1729 1301 Heparin Sodium 5,000 UNIT ASDIR PRN 06/21 1730 A C 06/22 IV 07/21 1729 1449 Nitroglycerin 0.4 MG Q5M PRN PRN 06/21 1730 AC SL 07/21 1729 Ondansetron HCl 4 MG Q6H PRN PRN 06/21 1730 AC 06/30 IV 07/21 1729 0433 24 hour I O ending at 0700: 06/30 0700 06/29 1900 Intake Total Output Total 3000 Balance -3000 Number 1 Bowel Movements Number Voids 2 Output, 3000 Hemodialysis Vital Signs: Date Time Temp Pulse Resp B/P B/P Pulse O2 O2 F low FiO2 Mean Ox Delivery Rate 06/30 0713 36.5 99 18 133/67 88.8 100 Nasal 2 cannula 06/30 0438 36.6 97 16 113/69 83.5 98 Nasal cannula 06/30 0206 36.8 103 16 120/71 87.2 100 Nasal cannula 06/29 2036 Nasal 4 cannula 06/29 1937 36.5 90 16 104/65 77.9 99 Nasal cannula 06/29 1600 36.6 80 18 128/70 100 Nasal 4 cannula 06/29 1210 36.6 79 18 139/77 98 Nasal 4 cannula 06/29 1125 36.7 69 18 132/80 97.5 98 Nasal cannula PATIENT WEIGHT: Weight (lb): 245 Weight (oz): 9.52 Weight (kg): 111.13 Physical Exam General appearance: alert, awake, oriented, no a cute distress Neck: non-tender, no JVD Cardiovascular: CV assessment: regular rate and rhythm Respiratory: decreased breath sounds, on oxygen, no distress Abdomen: non-tender, obese Genitourinary: no flank pain, no urinary cathete r Lower extremity: LE assessment: edema, abnormal pedal pulse Musculoskeletal: normal inspection Neuro/SURGICAL SPECIALIST: alert, oriented X 3, normal speech Skin: scabs lower extremities Ulcer: Type/cause: diabetic, arterial Location: foot (bilateral toes) Psychiatry: normal affect, normal mood Diagnosis, Assessment Plan Consultants: cardiology, cardiovascular surgery, nephrology, wound care Free Text DxA P Notes Free Text DxA P Notes: 67 YO female with PMHx of HTN, DM, CHF, ESRD on HD who initially presented at [facility] with SOB and fatigue. Sh regan was treated for NSTEMI and acute CHF exacerbation. 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 She is transferred her for CABG evaluation but deemed too high risk for CABG with STS risk score of 17%. 1. NSTEMI/Multivessel CAD 06/27/22: s/p PCI to LCx wit h 2.25 x 20 mm and post dilated with 2.5 NC balloon continue ASA, Brilinta, BB, and statin need staged PCI to mid and proximal LAD in 1-2 w eeks stable 2. Acute on chronic Diastolic CHF volume management per nephrology echo from OSH LVEF 50% 3. ESRD on HD per nephrology 4. Diabetes mellitus per admitting team 5. Hypertension -> hypotension on midodrine continue low-dose beta-susan for CAD bp now stable 6. Toe ulcers/severe PAD 06/26/21: s/p peripheral angiogram and MORPHOLOGIST to th e anterior tibial artery ORE ROASTER of right anterior/posterior tibial artery, n eed staged intervention on a later date PT/OT- Rehab eval ongoing Herson Tang 06/30/22 1632: Attestations Physician Attestation Agree w/findings plan: I have seen and examined the pt, I Agree with th e findings and plan as documented by Sabrina Tirado. Continue aspirin and Brilinta. Needs physical th erapy and possible inpatient rehab. She will need staged intervention of the LAD as outpatient and in the right anterior tibial artery if wound does not h eal in the right foot. Electronically Signed by Sabrina Tirado INDUSTRIAL RELATIONS DIRECTOR on 1 08/31/21 at 1019 Electronically Signed by Herson Tang MD on at 1633 RPT #:[id number] END OF REPORT 2022-06-30 09:49:00-00:00 [facility] Progress Note REPORT#:[id number] REPORT STATUS: Signed DATE:06/30/22 TIME: 09 PATIENT: MESERET MOTTA UNIT #: [id number] ROOM/BED: [place] [id number] : 56 AGE: 67 SEX: F ATTEND: Aodnis Gaytan MD ADM AUTHOR: Adonis Gaytan MD * ALL edits or amendments must be made on the el [employer]/computer document * Subjective Chief complaint: no cp. no sob. no f/c. Objective General VS/I O: Vital Signs: Date Time Temp Pulse Resp B/P B/P Pulse O2 O2 F low FiO2 Mean Ox Delivery Rate 06/30 0713 97.7 99 18 133/67 88.8 100 Nasal 2 cannula 06/30 0438 97.9 97 16 113/69 83.5 98 Nasal cannula 06/30 0206 98.2 103 16 120/71 87.2 100 Nasal cannula 06/29 2036 Nasal 4 cannula 06/29 1937 97.7 90 16 104/65 77.9 99 Nasal cannula 06/29 1600 97.8 80 18 128/70 100 Nasal 4 cannula 06/29 1210 97.8 79 18 139/77 98 Nasal 4 cannula 06/29 1125 98.1 69 18 132/80 97.5 98 Nasal cannula 24 hour I O ending at 0700: 06/30 0700 06/29 1900 Intake Total Output Total 3000 Balance -3000 Number 1 Bowel Movements Number Voids 2 Output, 3000 Hemodialysis PATIENT WEIGHT: Weight (lb): 245 Weight (oz): 9.52 Weight (kg): 111.13 Physical Exam General appearance: alert, awake Head/Eyes: atraumatic, clear cornea, EOMI, kristopher l conjunctiva/sclera, PERRLA ENT: moist mucosal membranes Neck: supple/no meningismus, no JVD Cardiovascular: normal heart sounds, regular rat e rhythm, no murmur Respiratory: aerating well, clear to auscultatio n, symmetric expansion Abdomen: non-tender, normal bowel sounds, soft, no distention Extremities: edema, moves all Neuro/SURGICAL SPECIALIST: alert, oriented X 3, normal speech, n o motor deficits Ulcer: Type/cause: diabetic, arterial Location: foot (bilateral toes) Psychiatry: normal affect Results Radiology data: Laboratory Tests 06/30/22 0725: [Embedded Image Not Available] 06/29/22 0600: [Embedded Image Not Available] Current Medications Sig/Enedina Start time Last Medication Dose Route Stop Time Status Admin Docusate Sodium 100 MG BID 06/30 0900 AC PO 07/30 0859 Sodium Chloride 1 SPRAY Q2H PRN PRN 06/29 1015 A C 06/29 NASAL 07/29 1014 1724 Albuterol/Ipratropiu 3 ML RTQ4H PRN PRN 06/28 12 15 AC m NEB 07/28 1214 Ticagrelor 90 MG Q12HR 06/28 1115 AC 06/29 PO 07/28 1114 2036 Ampicillin Sodium/ 3 GM 2100 06/27 2100 AC 06/29 Sulbactam Sodium IV 07/04 Sodium Chloride 100 ML Hydrocodone Bitart/ 1 TAB Q6H PRN PRN 06/27 1645 AC 06/30 Acetaminophen PO 07/02 1644 0722 Hydrocodone Bitart/ 1 TAB Q6H PRN PRN 06/27 1645 AC 06/30 Acetaminophen PO 07/02 1644 0433 Atropine Sulfate 0.5 MG ASDIR PRN 06/27 1600 AC IV 07/27 1559 Sodium Chloride 500 ML ASDIR PRN 06/27 1600 AC IV 07/27 1559 Sevelamer Carbonate 3,200 MG C MEALS 06/26 0800 AC 06/29 PO 07/26 0759 1724 Epoetin Vanesa-epbx 6,000 UNIT TuThSa@2100 06/24 2 100 AC 06/29 SUBQ 07/24 Calcitriol 0.5 MCG DAILY 06/23 0900 AC 06/29 PO 07/23 0859 0823 Midodrine 5 MG 0900,1300,1700 06/23 0900 AC 06/09 2 PO 07/23 0859 1724 Levothyroxine Sodium 150 MCG DAILY 0600 06/23 06 00 AC 06/30 PO 07/23 0559 0656 Buspirone HCl 5 MG BID 06/22 2100 AC 06/29 PO 07/22 Metoprolol Tartrate 12.5 MG Q12HR 06/22 2100 AC 06/29 PO 07/22 Pantoprazole 40 MG 0600,1800 06/22 1800 AC 06/30 PO 07/22 1759 0656 Midodrine 10 MG DIALYSIS-DOSE 06/22 1545 CKD BEFORE PO 07/22 1544 1856 Albumin Human 12.5 GM ASDIR PRN 06/22 1530 AC IV 07/23 1529 1909 Heparin Sodium 3,000 UNIT ASDIR PRN 06/22 1530 A C 06/28 (Porcine) DIALYSIS 07/22 1529 1512 Lidocaine HCl 0.5 ML ASDIR PRN 06/22 1530 CKD I-DERMAL 07/23 1529 Mannitol 12.5 GM ASDIR PRN 06/22 1530 AC IV 07/23 1529 Sodium Chloride 2,000 ML ASDIR PRN 06/22 1530 AC 06/28 IV 07/23 1529 1512 Sodium Chloride 5 ML ASDIR PRN 06/22 1530 AC IV 07/22 1529 Sodium Chloride 10 ML ASDIR PRN 06/22 1530 AC IV 07/22 1529 1620 Sodium Chloride 250 ML ASDIR PRN 06/22 1530 AC IV 07/22 1529 Aspirin 81 MG C BK 06/22 0800 AC 06/29 PO 07/22 0759 0824 Atorvastatin Calcium 40 MG 2100 06/21 2100 AC 08/30 PO 07/21 2058 203 Insulin Human Lispro 0 AC HS 06/21 2100 AC 06/29 SUBQ 07/21 2058 0823 Dextrose/Water 125 ML ASDIR PRN 06/21 1900 CKD IV 07/21 1859 Dextrose/Water 250 ML ASDIR PRN 06/21 1900 CKD IV 07/21 185 Glucagon 1 MG ASDIR PRN 06/21 1900 AC IM 07/21 1859 Melatonin 3 MG BEDTIME PRN PRN 06/21 1900 AC PO 07/21 1859 0102 Acetaminophen 650 MG Q4H PRN PRN 06/21 1730 AC 1 08/28 PO 07/21 1729 1301 Heparin Sodium 5,000 UNIT ASDIR PRN 06/21 1730 A C 06/22 IV 07/21 1729 1449 Nitroglycerin 0.4 MG Q5M PRN PRN 06/21 1730 AC SL 07/21 1729 Ondansetron HCl 4 MG Q6H PRN PRN 06/21 1730 AC 06/30 IV 07/21 1729 0433 Laboratory Tests: 06/30 06/29 06/29 06/29 0725 1958 1536 1124 Chemistry Sodium (134 - 147 mEq/L) 138 Potassium (3.4 - 5.0 mEq/L) 4.2 Chloride (100 - 108 mEq/L) 100 Carbon Dioxide (21 - 33 mEq/l) 24 Anion Gap (0 - 20) 19 BUN (7 - 18 mg/dL) 22 H Creatinine (0.6 - 1.3 mg/dL) 4.1 H Glomerular Filtr Rate (80 - 90) 11.4 L Glucose (70 - 110 mg/dL) 220 H POC Glucose (70 - 110 MG/DL) 172 H 108 172 H Calcium (8.0 - 10.5 mg/dL) 9.6 Hematology WBC (4.5 - 11.0 x10 3/uL) 12.0 H RBC (3.54 - 5.02 x10 6/uL) 3.06 L Hgb (11.0 - 15.0 g/dL) 9.2 L Hct (33.0 - 45.0 %) 31.2 L MCV (81.0 - 99.0 fL) 102.0 H MCH (27.0 - 33.0 pg) 30.1 MCHC (33.0 - 37.0 g/dL) 29.5 L RDW (11.5 - 14.5 %) 14.9 H Plt Count (150 - 400 x10 3/uL) 195 MPV (7.0 - 9.0 fL) 9.1 H Neut % (Auto) (56.0 - 77.0 %) 90.8 H Lymph % (Auto) (14.0 - 32.0 %) 3.1 L Kerr % (Auto) (4.8 - 9.0 %) 4.9 Eos % (Auto) (0.3 - 3.7 %) 0.5 Baso % (Auto) (0.0 - 2.0 %) 0.1 Neut # (Auto) (2.0 - 7.6 x10 3/uL) 10.86 H Lymph # (Auto) (1.0 - 3.8 x10 3/uL) 0.37 L Kerr # (Auto) (0.1 - 0.8 x10 3/uL) 0.59 Eos # (Auto) (0.0 - 0.2 x10 3/uL) 0.06 Baso # (Auto) (0.0 - 0.2 x10 3/uL) 0.01 Abs Immat Gran (auto) (0.00 - 0.03 x10 3/uL) 0. 07 H Add Manual Diff NO Immature Gran % (0.0 - 2.0 %) 0.6 Nucleated RBC % (0 - 0 %) 0.0 Nucleated RBCs # (Man) (0.0 - 0.1 x10 3/uL) 0.0 0 Diagnosis, Assessment Plan Consultants: cardiology, cardiovascular surgery, nephrology, wound care Free Text DxA P Notes Free text DxA P notes: Assessment and plans: Three-vessel coronary artery disease CV surgery following. Dopplers, alexandro duplex were ordered patient is off the heparin drip on aspirin, Brilinta, atorvastatin, metoprolol -echo from OSH LVEF 50% cardiology seen -S/p PCI to left circumflex 06/27 Patient needs staged PCI to mid and proximal LAD in 1 to 2 weeks as outpatient Severe PAD/toe ulcer: Status post MORPHOLOGIST and atherec cheri with CSI followed by MORPHOLOGIST with stable balloon on left anterior and posterior tibial artery, for r ight anterior and posterior tibial artery Will need staged intervention as p er cardiology. 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 Plan for peripheral angiogram in the morning as per c ardiology 06/29 Acute respiratory failure with hypoxemia Patient presented with supplemental nasal cannu la oxygen -Pulmonary edema, pleural effusion on CT chest, no PE Patient needs to be evaluated for home oxygen o nce patient is medically cleared for discharge On 2 L oxygen via nasal cannula 06/29 DuoNeb treatment Pulmonary consulted -Continue to optimize heart failure management, blood pressure control and Outpatient sleep study Leukocytosis: -CT chest result done -Afebrile -Patient has multiple ulcers in hands and feet. Wound cx growing ent fecalis, rocephin switched to unasyn 07/04 -blood culture 06/26 (was not ordered on admissi on) no growth till now 06/30- WBC increasing on unasyn. consult ID. ran prieto? 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 Pat ient lives alone. 06/28 Elevated LFTs Secondary to hepatic congestion Monitor LFTs Type 2 diabetes mellitus on insulin sliding scale Diabetic diet Hypothyroidism Resume Synthroid Anemia of chronic disease -Transfuse for Hb <7 -No bleeding hypotension on midodrine on empiric IV CTX check labs in am SCD for DVT prophylaxis. Disposition: S/p PCI and 1 stent placement in le ft circumflex, plan for peripheral angiogram to right anterior and poste rior tibial artery. On 2 L oxygen via nasal cannula. On Unasyn. Patient ricki es alone. Case management consulted for inpatient rehab. Continue inpatien t care. 06/30- WBC worsening. ID consulted. awaiting tra nsfer to rehab. Quality: Gen Med Crit Care VTE Prophylaxis VTE prophylaxis initiated: yes Current Medications Current medication review: I attest that the foregoing medication list in t he medical record is true, accurate, and complete to the best of my knowled ge. Electronically Signed by Adonis Gaytan MD on 06/09 09/27 at 0951 [facility] #:[id number] END OF REPORT 2022-06-30 08:05:00-00:00 [facility] ([facility]) Nephrology Progress Note REPORT#:[id number] REPORT STATUS: Signed DATE:06/30/22 TIME: 804 PATIENT: MESERET MOTTA UNIT #: [id number] ROOM/BED: [place] [id number] : 56 AGE: 67 SEX: F ATTEND: Adonis Gaytan MD ADM AUTHOR: Jennifer Shelton MD * ALL edits or amendments must be made on the [employer]/computer document * Subjective Chief complaint: Transferred for CABG HPI: Patient seen and evaluated, discussed with care team, 67-year-old female with history of end-stage renal d isease on chronic hemodialysis Sunday, and Sunday, diabetes mellitus, peripheral arterial disease and hypertension who was transferred to [facility] for CABG. Terrence quevedo initially presented to [facility] in [place] compl aining of shortness of breath. Underwent left heart cath which showed diffuse di sease and patient was transferred for evaluation for CABG. renal consult was requ ested for management of her end-stage renal disease/ hemodialysis. Patient reports: Yes: complaints. Comments: Patient seen and evaluated, HPI no change from i nitial, feels okay. Review of Systems Constitutional: Reports: fatigue. Denies: chills, fever. Skin: Denies: abrasion, bruising. Allergy/Immun: Denies: hives, itching. Eyes: Denies: redness, discharge. ENT: Denies: ear drainage, ear ringing. Respiratory: Denies: hemoptysis, SOB. Cardiovascular: Denies: chest pain. Objective General VS/I O: Vital Signs: Date Time Temp Pulse Resp B/P B/P Pulse O2 O2 Flow FiO2 Mean Ox Delivery Rate 06/30 0713 36.5 99 18 133/67 88.8 100 Nasal 2 cannula 06/30 0438 36.6 97 16 113/69 83.5 98 Nasal cannula 06/30 0206 36.8 103 16 120/71 87.2 100 Nasal cannula 06/29 2036 Nasal 4 cannula 06/29 1937 36.5 90 16 104/65 77.9 99 Nasal cannula 06/29 1600 36.6 80 18 128/70 100 Nasal 4 cannula 06/29 1210 36.6 79 18 139/77 98 Nasal 4 cannula 06/29 1125 36.7 69 18 132/80 97.5 98 Nasal cannula 24 hour I O ending at 0700: 06/30 0700 06/29 1900 Intake Total Output Total 3000 Balance -3000 Number 1 Bowel Movements Number Voids 2 Output, 3000 Hemodialysis PATIENT WEIGHT: Weight (lb): 245 Weight (oz): 9.52 Weight (kg): 111.13 Medications Active Meds + DC'd Last 24 Hrs Docusate Sodium (COLACE) 100 MG BID PO Sodium Chloride (OCEAN) 1 SPRAY Q2H PRN PRN DANIEL AL Albuterol/Ipratropium (DUONEB) 3 ML RTQ4H PRN DC N NEB Ticagrelor (BRILINTA) 90 MG Q12HR PO Ampicillin Sodium/Sulbactam Sodium (UNASYN 3GM) 3 GM 2100 IV Sodium Chloride (SODIUM CHLORIDE 0.9% 100 ML) 1 00 ML Hydrocodone Bitart/Acetaminophen (NORCO 5/325) 1 TAB Q6H PRN PRN PO Hydrocodone Bitart/Acetaminophen (NORCO 10/325) 1 TAB Q6H PRN PRN PO Atropine Sulfate (ATROPINE SULFATE 0.1MG/ML SYR) 0.5 MG ASDIR PRN IV Sodium Chloride (SODIUM CHLORIDE 0.9%) 500 ML A SDIR PRN IV Sevelamer Carbonate (RENVELA) 3,200 MG C MEALS P O Epoetin Vanesa-epbx (RETACRIT) 6,000 UNIT TuThSa@2 100 SUBQ Calcitriol (RocaltroL) 0.5 MCG DAILY PO Midodrine (PROAMATINE) 5 MG 0900,1300,1700 PO Levothyroxine Sodium (LEVOTHYROXINE SODIUM) 150 MCG DAILY 0600 PO Buspirone HCl (BUSPAR) 5 MG BID PO Metoprolol Tartrate (LOPRESSOR) 12.5 MG Q12HR PO Pantoprazole (PROTONIX) 40 MG 0600,1800 PO Midodrine (PROAMATINE) 10 MG DIALYSIS-DOSE BEFOR E PO (CKD) Albumin Human (ALBUMINAR-25%) 12.5 GM ASDIR PRN IV Heparin Sodium (Porcine) (HEPARIN SODIUM) 3,000 UNIT ASDIR PRN DIALYSIS Lidocaine HCl (LIDOCAINE HCL/PF) 0.5 ML ASDIR DC N I-DERMAL (CKD) Mannitol (MANNITOL 25% 12.5GM/50ML) 12.5 GM ASDI R PRN IV Sodium Chloride (SODIUM CHLORIDE 0.9%) 2,000 ML ASDIR PRN IV Sodium Chloride (SODIUM CHLORIDE) 5 ML ASDIR PRN IV Sodium Chloride (SODIUM CHLORIDE) 10 ML ASDIR DC N IV Sodium Chloride (SODIUM CHLORIDE 0.9%) 250 ML DIR PRN IV Aspirin (ASPIRIN) 81 MG C BK PO Atorvastatin Calcium (LIPITOR) 40 MG 2100 PO Insulin Human Lispro (HUMALOG) 0 AC HS SUBQ Dextrose/Water (DEXTROSE 10% IN WATER) 125 ML DIR PRN IV (CKD) Dextrose/Water (DEXTROSE 10% IN WATER) 250 ML DIR PRN IV (CKD) Glucagon (GLUCAGON) 1 MG ASDIR PRN IM Melatonin (Melatonin) 3 MG BEDTIME PRN PRN PO Acetaminophen (TYLENOL) 650 MG Q4H PRN PRN PO Heparin Sodium (HEPARIN 5000 UNITS/ML) 5,000 UNI T ASDIR PRN IV Nitroglycerin (NITROSTAT) 0.4 MG Q5M PRN PRN SL Ondansetron HCl (ZOFRAN) 4 MG Q6H PRN PRN IV Physical Exam General appearance: alert, no acute distress Head/eyes: atraumatic, normocephalic ENT: normal nose Neck: non-tender, supple/no meningismus Cardiovascular: normal heart sounds, no rub Respiratory: aerating well, symmetric expansion Abdomen: non-tender, soft Genitourinary: no flank pain Extremities: pitting edema, non-tender Musculoskeletal: no CVA tenderness, no tendernes s Neuro/SURGICAL SPECIALIST: alert, normal speech Skin: dry, intact Ulcer: Type/cause: diabetic, arterial Location: foot (bilateral toes) Results Findings/Data: Laboratory Tests 06/30 06/29 06/29 06/29 0725 1958 1536 1124 Chemistry Sodium (134 - 147 mEq/L) 138 Potassium (3.4 - 5.0 mEq/L) 4.2 Chloride (100 - 108 mEq/L) 100 Carbon Dioxide (21 - 33 mEq/l) 24 Anion Gap (0 - 20) 19 BUN (7 - 18 mg/dL) 22 H Creatinine (0.6 - 1.3 mg/dL) 4.1 H Glomerular Filtr Rate (80 - 90) 11.4 L Glucose (70 - 110 mg/dL) 220 H POC Glucose (70 - 110 MG/DL) 172 H 108 172 H Laboratory Tests 06/30 0725 Hematology WBC (4.5 - 11.0 x10 3/uL) 12.0 H RBC (3.54 - 5.02 x10 6/uL) 3.06 L Hgb (11.0 - 15.0 g/dL) 9.2 L Hct (33.0 - 45.0 %) 31.2 L MCV (81.0 - 99.0 fL) 102.0 H MCH (27.0 - 33.0 pg) 30.1 MCHC (33.0 - 37.0 g/dL) 29.5 L RDW (11.5 - 14.5 %) 14.9 H Plt Count (150 - 400 x10 3/uL) 195 MPV (7.0 - 9.0 fL) 9.1 H Neut % (Auto) (56.0 - 77.0 %) 90.8 H Lymph % (Auto) (14.0 - 32.0 %) 3.1 L Kerr % (Auto) (4.8 - 9.0 %) 4.9 Eos % (Auto) (0.3 - 3.7 %) 0.5 Baso % (Auto) (0.0 - 2.0 %) 0.1 Neut # (Auto) (2.0 - 7.6 x10 3/uL) 10.86 H Lymph # (Auto) (1.0 - 3.8 x10 3/uL) 0.37 L Kerr # (Auto) (0.1 - 0.8 x10 3/uL) 0.59 Eos # (Auto) (0.0 - 0.2 x10 3/uL) 0.06 Baso # (Auto) (0.0 - 0.2 x10 3/uL) 0.01 Abs Immat Gran (auto) (0.00 - 0.03 x10 3/uL) 0. 07 H Add Manual Diff NO Immature Gran % (0.0 - 2.0 %) 0.6 Nucleated RBC % (0 - 0 %) 0.0 Nucleated RBCs # (Man) (0.0 - 0.1 x10 3/uL) 0.0 0 Diagnosis, Assessment Plan Free Text A P: Patient seen and evaluated, discussed with care team, images and laboratories reviewed. End-stage renal disease on c hronic hemodialysis, Sunday, and Sunday, plan for hemodialysis today Status post left heart cath with multi-vessel co ronary artery disease, respiratory evaluation for CABG. Hypertension: Monitor blood pressure closely and adjust medications as needed Hyperlipidemia: Lipitor Diabetes mellitus: Insulin: Monitor blood sugar closely adjust medications as needed Anemia: We will start Epogen 4000 subcu 3 times a week Elevated alkaline phosphatase we will check PTH. 06/23/2022 plan for filtration today if her bloo d pressure allows, had hemodialysis yesterday. See showed hemoglobin 9. 1, platelet 136, blood count 12.1. We will increase Epoge n to 6000 subcu 3 times a week, PTH 660 we will add Rocaltrol 0.5 mcg p.o. daily, will add midodrine 5 mg p.o. 3 times daily to allow for ultrafiltration. 06/24/2022 laboratory for th morning showed sodium 136, potassium 4.9, CO2 23, BUN 50, creatinine 5.8, phos phorus 7.1 we will add Renvela 2 p.o. with each meal , hemoglobin 9.3, platelet 152, blood count 13.3 , for hemodialysis today, 4 hours, 2K, ultrafiltration 3 to 4 L if tolerated , seen during HD. 06/25/2022 laboratory this m bartolo showed sodium 137, potassium 4.3, CO2 25, BUN 31, creatinine 4.5, alkaline phosphatase 272, st atus post ultrafiltration yesterday, 3.9 L removed, plan for dialysis in t he morning. 06/26/2022 laboratory this tiffany mcfarland showed sodium 137, potassium 4.4, CO2 22, BUN 39, creatinine 5.4, hemoglob in 9.8, platelet 145, blood count 14, phosphorus 6.8 we will increase Renvela to 4 p.o. with each meal, plan for hemodialysis today, 4 hours, 3K, ultrafiltration 3 to 4 L if tolerat ed 06/27/2022 status post peripheral angiogram/inte rvention yesterday, only had less than 2 hours of dialysis yesterday due to hypotension postprocedure, will plan on hemodialysis today, 4 hours, 3K, ultrafiltration 3 to 4 L if tolerated 06/28/2022 status post hemodialysis yesterday, w ill plan for ultrafiltration today 3 to 4 L if tolerated. Laboratory this manav barba showed sodium 136, potassium 4.2, CO2 22, BUN 22, creatinine 3.9, h emoglobin 8.9, platelet 149, blood count 10.8 06/29/2022 status post ultrafiltration yesterday 4 L removed, plan for hemodialysis today, 4 hours, 3K, ultrafiltration 3 to 4 L if tolerated. 06/30/2022 laboratory this tiffany mcfarland showed sodium 138, potassium 4.2, CO2 24, BUN 22, creatinine 4.1, hemoglobin 9.2, plat elet 195, white blood count 12, status post hemodialysis yesterday, 3 L removed. Consultants: cardiology, cardiovascular surgery, nephrology, wound care Electronically Signed by Jennifer Shelton MD on at 0929 RPT #:[id number] END OF REPORT 2022-06-30 06:24:00-00:00 [facility] Progress Note REPORT#:[id number] REPORT STATUS: Signed DATE:06/30/22 TIME: 623 PATIENT: MESERET MOTTA UNIT #: [id number] ROOM/BED: [place] [id number] : 56 AGE: 67 SEX: F ATTEND: Adonis Gaytan MD ADM AUTHOR: Shelton Vega * ALL edits or amendments must be made on the Summay/computer document * Subjective Chief complaint: rehab follow-up States she is tired NAD Denies TABARES/N/V/D/CP 14 systems reviewed and neg. except that above. Objective General VS: Vital Signs: Date Time Temp Pulse Resp B/P B/P Pulse O2 O2 F low FiO2 Mean Ox Delivery Rate 06/30 0438 97.9 97 16 113/69 83.5 98 Nasal cannula 06/30 0206 98.2 103 16 120/71 87.2 100 Nasal cannula 06/29 2036 Nasal 4 cannula 06/29 1937 97.7 90 16 104/65 77.9 99 Nasal cannula 06/29 1600 97.8 80 18 128/70 100 Nasal 4 cannula 06/29 1210 97.8 79 18 139/77 98 Nasal 4 cannula 06/29 1125 98.1 69 18 132/80 97.5 98 Nasal cannula 06/29 0800 Nasal 2 cannula 06/29 0755 97.5 72 17 113/70 84.4 100 Room air PATIENT WEIGHT: Weight (lb): 245 Weight (oz): 9.52 Weight (kg): 111.13 Medications: Active Meds + DC'd Last 24 Hrs Docusate Sodium (COLACE) 100 MG BID PO Sodium Chloride (OCEAN) 1 SPRAY Q2H PRN PRN NASA L Albuterol/Ipratropium (DUONEB) 3 ML RTQ4H PRN DC N NEB Ticagrelor (BRILINTA) 90 MG Q12HR PO Ampicillin Sodium/Sulbactam Sodium (UNASYN 3GM) 3 GM 2100 IV Sodium Chloride (SODIUM CHLORIDE 0.9% 100 ML) 1 00 ML Hydrocodone Bitart/Acetaminophen (NORCO 5/325) 1 TAB Q6H PRN PRN PO Hydrocodone Bitart/Acetaminophen (NORCO 10/325) 1 TAB Q6H PRN PRN PO Atropine Sulfate (ATROPINE SULFATE 0.1MG/ML SYR) 0.5 MG ASDIR PRN IV Sodium Chloride (SODIUM CHLORIDE 0.9%) 500 ML DIR PRN IV Sevelamer Carbonate (RENVELA) 3,200 MG C MEALS P O Epoetin Vanesa-epbx (RETACRIT) 6,000 UNIT TuThSa@2 100 SUBQ Calcitriol (RocaltroL) 0.5 MCG DAILY PO Midodrine (PROAMATINE) 5 MG 0900,1300,1700 PO Levothyroxine Sodium (LEVOTHYROXINE SODIUM) 150 MCG DAILY 0600 PO Buspirone HCl (BUSPAR) 5 MG BID PO Metoprolol Tartrate (LOPRESSOR) 12.5 MG Q12HR PO Pantoprazole (PROTONIX) 40 MG 0600,1800 PO Midodrine (PROAMATINE) 10 MG DIALYSIS-DOSE BEFOR E PO (CKD) Albumin Human (ALBUMINAR-25%) 12.5 GM ASDIR PRN IV Heparin Sodium (Porcine) (HEPARIN SODIUM) 3,000 UNIT ASDIR PRN DIALYSIS Lidocaine HCl (LIDOCAINE HCL/PF) 0.5 ML ASDIR DC N I-DERMAL (CKD) Mannitol (MANNITOL 25% 12.5GM/50ML) 12.5 GM ASDI R PRN IV Sodium Chloride (SODIUM CHLORIDE 0.9%) 2,000 ML ASDIR PRN IV Sodium Chloride (SODIUM CHLORIDE) 5 ML ASDIR PRN IV Sodium Chloride (SODIUM CHLORIDE) 10 ML ASDIR DC N IV Sodium Chloride (SODIUM CHLORIDE 0.9%) 250 ML DIR PRN IV Aspirin (ASPIRIN) 81 MG C BK PO Atorvastatin Calcium (LIPITOR) 40 MG 2100 PO Insulin Human Lispro (HUMALOG) 0 AC HS SUBQ Dextrose/Water (DEXTROSE 10% IN WATER) 125 ML DIR PRN IV (CKD) Dextrose/Water (DEXTROSE 10% IN WATER) 250 ML DIR PRN IV (CKD) Glucagon (GLUCAGON) 1 MG ASDIR PRN IM Melatonin (Melatonin) 3 MG BEDTIME PRN PRN PO Acetaminophen (TYLENOL) 650 MG Q4H PRN PRN PO Heparin Sodium (HEPARIN 5000 UNITS/ML) 5,000 UNI T ASDIR PRN IV Nitroglycerin (NITROSTAT) 0.4 MG Q5M PRN PRN SL Ondansetron HCl (ZOFRAN) 4 MG Q6H PRN PRN IV Functional Progress Functional progress: No therapies yesterday Physical Exam General appearance: alert, awake Psych: alert, oriented x 3 HEENT: anicteric, mucosal membranes moist Neck: supple, no JVD Cardiovascular: regular rate rhythm, no murmur Respiratory: aerating well, clear bilaterally Abdomen: bowel sounds present, non-distended, so ft, non-tender Skin: BLE and hand multi wounds Ulcer: Type/cause: diabetic, arterial Location: foot (bilateral toes) Musculoskeletal - general: Musculoskeletal - general: swelling (BLE), MMT BUE +3/5 BLE HF -3/5 KE +3/5 Neuro/SURGICAL SPECIALIST: sensory deficit ( decrease BLE), alert, oriented X 3, CNII-XII intact, normal speech Genitourinary: Results Findings/Data: Laboratory Tests 06/29 1536 1124 0756 0600 Chemistry Sodium (134 - 147 mEq/L) 137 Potassium (3.4 - 5.0 mEq/L) 4.3 Chloride (100 - 108 mEq/L) 102 Carbon Dioxide (21 - 33 mEq/l) 24 Anion Gap (0 - 20) 15 BUN (7 - 18 mg/dL) 28 H Creatinine (0.6 - 1.3 mg/dL) 4.8 H Glomerular Filtr Rate (80 - 90) 9.5 L Glucose (70 - 110 mg/dL) 197 H POC Glucose (70 - 110 MG/DL) 172 H 108 172 H 18 6 H Calcium (8.0 - 10.5 mg/dL) 9.3 Phosphorus (2.5 - 4.9 MG/DL) 5.5 H Magnesium (1.80 - 2.40 mg/dL) 2.32 06/289 1847 1120 0908 0535 Chemistry Sodium (134 - 147 mEq/L) 138 Potassium (3.4 - 5.0 mEq/L) 4.3 Chloride (100 - 108 mEq/L) 101 Carbon Dioxide (21 - 33 mEq/l) 25 Anion Gap (0 - 20) 17 BUN (7 - 18 mg/dL) 25 H Creatinine (0.6 - 1.3 mg/dL) 3.9 H Glomerular Filtr Rate (80 - 90) 12.1 L Glucose (70 - 110 mg/dL) 165 H POC Glucose (70 - 110 MG/DL) 141 H 156 H 112 H 167 H Calcium (8.0 - 10.5 mg/dL) 9.1 06/28 06/27 06/27 06/27 06/27 0535 2 1628 1532 0861 Chemistry Sodium (134 - 147 mEq/L) 136 Potassium (3.4 - 5.0 mEq/L) 4.2 Chloride (100 - 108 mEq/L) 100 Carbon Dioxide (21 - 33 mEq/l) 22 Anion Gap (0 - 20) 18 BUN (7 - 18 mg/dL) 22 H Creatinine (0.6 - 1.3 mg/dL) 3.9 H Glomerular Filtr Rate (80 - 90) 12.1 L Glucose (70 - 110 mg/dL) 163 H POC Glucose (70 - 110 MG/DL) 99 147 H 154 H 171 H Calcium (8.0 - 10.5 mg/dL) 9.3 06/27 0800 Chemistry Hemoglobin A1c (4.8 - 6.0 %A1C) 5.8 Laboratory Tests 06/27 1429 Coagulation Activated Coag Time (74 - 137 SEC) 281 H Laboratory Tests 06/29 06/28 06/27 0600 0535 0800 Hematology WBC (4.5 - 11.0 x10 3/uL) 10.0 10.8 9.4 RBC (3.54 - 5.02 x10 6/uL) 2.96 L 2.89 L 2.83 L Hgb (11.0 - 15.0 g/dL) 9.0 L 8.9 L 8.6 L Hct (33.0 - 45.0 %) 30.7 L 30.0 L 29.2 L MCV (81.0 - 99.0 fL) 103.7 H 103.8 H 103.2 H MCH (27.0 - 33.0 pg) 30.4 30.8 30.4 MCHC (33.0 - 37.0 g/dL) 29.3 L 29.7 L 29.5 L RDW (11.5 - 14.5 %) 15.3 H 15.6 H 15.5 H Plt Count (150 - 400 x10 3/uL) 170 149 L 139 L MPV (7.0 - 9.0 fL) 9.7 H 9.7 H 9.7 H Neut % (Auto) (56.0 - 77.0 %) 86.3 H 90.4 H 82. 6 H Lymph % (Auto) (14.0 - 32.0 %) 3.8 L 2.7 L 6.4 L Kerr % (Auto) (4.8 - 9.0 %) 7.3 4.9 8.8 Eos % (Auto) (0.3 - 3.7 %) 2.2 1.4 1.5 Baso % (Auto) (0.0 - 2.0 %) 0.1 0.1 0.1 Neut # (Auto) (2.0 - 7.6 x10 3/uL) 8.61 H 9.74 H 7.78 H Lymph # (Auto) (1.0 - 3.8 x10 3/uL) 0.38 L 0.29 L 0.60 L Kerr # (Auto) (0.1 - 0.8 x10 3/uL) 0.73 0.53 0. 83 H Eos # (Auto) (0.0 - 0.2 x10 3/uL) 0.22 H 0.15 0.14 Baso # (Auto) (0.0 - 0.2 x10 3/uL) 0.01 0.01 0. 01 Abs Immat Gran (auto) (0.00 - 0.03 x10 3/uL) 0. 03 0.05 H 0.06 H Add Manual Diff NO NO NO Immature Gran % (0.0 - 2.0 %) 0.3 0.5 0.6 Nucleated RBC % (0 - 0 %) 0.0 0.0 0.0 Nucleated RBCs # (Man) (0.0 - 0.1 x10 3/uL) 0.0 0 0.00 0.00 Diagnosis, Assessment Plan Free Text A P: 67-year-old female with weakness and impaired mo bility 2/2 cardiac myopathy positive for NSTEMI Multivessel CAD, acute on ch ronic diastolic heart failure -End-stage renal disease on hemodialysis -Severe PVD-(s/p MORPHOLOGIST and ath erectomy with CSI followed by MORPHOLOGIST with TAVR balloon on left anterior and posterior tibial artery. CT O of right anterior/posterior tibial artery- will need staged intervention) -Uremic Neuropathy -Uremic Myopathy -Generalized weakness -Impaired mobility, gait, balance, ADLs, and end urance -Acute hypoxemia resp failure -Acute on chronic diastolic HF -Diabetes type 2 with hyperglycemia -Hypertension -COPD -Multiple wounds on feet and hands Plan: Continue supportive and preventative care Wound care team is following wound care manageme nt Continue PT/OT Out of bed to chair Work on ADLs, strength, bed mobility, transfers, gait DVT prophylaxis on SCD Strict fall and safety precautions Monitor p.o. intake and nutrition Strict decubitus precautions Monitor labs Wound care on outsole caser labs Advance therapies as tolerated. Patient particip ating in therapies Pt would benefit from a comprehensive rehab prog mitul in [facility] addressing her impaired functional mobility, gait, balance and endurance impairments, while being closely monitored by P MR and medical teams. She is at high risk for acute HF issues, cardiac arrhythmia, re occlusion to B LE. Pt is agreeable and capable of the 3 hour therap y session required TT:33 mins: time spent reviewing chart, meds, la bs notes and assessing pt and discussing rehab poc. Answered all quesions Consultants: cardiology, cardiovascular surgery, nephrology, wound care Rehab attestation: . Electronically Signed by Shelton Vega on 1 08/31/21 at 2206 RPT #:[id number] END OF REPORT 2022-06-29 22:26:00-00:00 [facility] ([facility] Rehab Progress Note REPORT#:[id number] REPORT STATUS: Signed DATE:06/29/22 TIME: 2225 PATIENT: MESERET MOTTA UNIT #: [id number] ROOM/BED: [place] [id number] : 56 AGE: 67 SEX: F ATTEND: Skye Johnson ADM AUTHOR: Lisa Vega NP * ALL edits or amendments must be made on the Summay/computer document * Subjective Chief complaint: rehab [id number] seen around 1030am Pt feeling tired today, with decrease endurance + mild nose bleed + sob with increase activity Objective General VS: Vital Signs: Date Time Temp Pulse Resp B/P B/P Pulse O2 O2 F low FiO2 Mean Ox Delivery Rate 06/29 1937 97.7 90 16 104/65 77.9 99 Nasal cannula 06/29 1600 97.8 80 18 128/70 100 Nasal 4 cannula 06/29 1210 97.8 79 18 139/77 98 Nasal 4 cannula 06/29 1125 98.1 69 18 132/80 97.5 98 Nasal cannula 06/29 0800 Nasal 2 cannula 06/29 0755 97.5 72 17 113/70 84.4 100 Room air 06/29 0445 79 11 130/77 94.2 100 06/28 2342 97 Room air 21 PATIENT WEIGHT: Weight (lb): 245 Weight (oz): 9.52 Weight (kg): 111.13 Medications: Active Meds + DC'd Last 24 Hrs Sodium Chloride (OCEAN) 1 SPRAY Q2H PRN PRN NASA L Albuterol/Ipratropium (DUONEB) 3 ML RTQ4H PRN DC N NEB Ticagrelor (BRILINTA) 90 MG Q12HR PO Ampicillin Sodium/Sulbactam Sodium (UNASYN 3GM) 3 GM 2100 IV Sodium Chloride (SODIUM CHLORIDE 0.9% 100 ML) 100 ML Hydrocodone Bitart/Acetaminophen (NORCO 5/325) 1 TAB Q6H PRN PRN PO Hydrocodone Bitart/Acetaminophen (NORCO 10/325) 1 TAB Q6H PRN PRN PO Atropine Sulfate (ATROPINE SULFATE 0.1MG/ML SYR) 0.5 MG ASDIR PRN IV Sodium Chloride (SODIUM CHLORIDE 0.9%) 500 ML DIR PRN IV Sevelamer Carbonate (RENVELA) 3,200 MG C MEALS P O Epoetin Vanesa-epbx (RETACRIT) 6,000 UNIT TuThSa@2 100 SUBQ Calcitriol (RocaltroL) 0.5 MCG DAILY PO Midodrine (PROAMATINE) 5 MG 0900,1300,1700 PO Levothyroxine Sodium (LEVOTHYROXINE SODIUM) 150 MCG DAILY 0600 PO Buspirone HCl (BUSPAR) 5 MG BID PO Metoprolol Tartrate (LOPRESSOR) 12.5 MG Q12HR PO Pantoprazole (PROTONIX) 40 MG 0600,1800 PO Midodrine (PROAMATINE) 10 MG DIALYSIS-DOSE BEFOR E PO (CKD) Albumin Human (ALBUMINAR-25%) 12.5 GM ASDIR PRN IV Heparin Sodium (Porcine) (HEPARIN SODIUM) 3,000 UNIT ASDIR PRN DIALYSIS Lidocaine HCl (LIDOCAINE HCL/PF) 0.5 ML ASDIR DC N I-DERMAL (CKD) Mannitol (MANNITOL 25% 12.5GM/50ML) 12.5 GM ASDI R PRN IV Sodium Chloride (SODIUM CHLORIDE 0.9%) 2,000 ML ASDIR PRN IV Sodium Chloride (SODIUM CHLORIDE) 5 ML ASDIR PRN IV Sodium Chloride (SODIUM CHLORIDE) 10 ML ASDIR DC N IV Sodium Chloride (SODIUM CHLORIDE 0.9%) 250 ML DIR PRN IV Aspirin (ASPIRIN) 81 MG C BK PO Atorvastatin Calcium (LIPITOR) 40 MG 2100 PO Insulin Human Lispro (HUMALOG) 0 AC HS SUBQ Dextrose/Water (DEXTROSE 10% IN WATER) 125 ML DIR PRN IV (CKD) Dextrose/Water (DEXTROSE 10% IN WATER) 250 ML DIR PRN IV (CKD) Glucagon (GLUCAGON) 1 MG ASDIR PRN IM Melatonin (Melatonin) 3 MG BEDTIME PRN PRN PO Acetaminophen (TYLENOL) 650 MG Q4H PRN PRN PO Heparin Sodium (HEPARIN 5000 UNITS/ML) 5,000 UNI T ASDIR PRN IV Nitroglycerin (NITROSTAT) 0.4 MG Q5M PRN PRN SL Ondansetron HCl (ZOFRAN) 4 MG Q6H PRN PRN IV Physical Exam General appearance: obese, alert, awake, oriente d Psych: alert, oriented x 3 HEENT: anicteric, mucosal membranes moist Neck: supple, no JVD Cardiovascular: regular rate rhythm, no murmur Respiratory: aerating well, clear bilaterally Abdomen: bowel sounds present, non-distended, so ft, non-tender Skin: BLE and hand multi wounds Ulcer: Type/cause: diabetic, arterial Location: foot (bilateral toes) Musculoskeletal - general: Musculoskeletal - general: swelling (BLE), MMT BUE +3/5 BLE HF -3/5 KE +3/5 Neuro/SURGICAL SPECIALIST: sensory deficit ( decrease BLE), alert, oriented X 3, CNII-XII intact, normal speech Genitourinary: Results Findings/Data: Laboratory Tests: 06/29 1536 1124 0756 0600 Chemistry Sodium (134 - 147 mEq/L) 137 Potassium (3.4 - 5.0 mEq/L) 4.3 Chloride (100 - 108 mEq/L) 102 Carbon Dioxide (21 - 33 mEq/l) 24 Anion Gap (0 - 20) 15 BUN (7 - 18 mg/dL) 28 H Creatinine (0.6 - 1.3 mg/dL) 4.8 H Glomerular Filtr Rate (80 - 90) 9.5 L Glucose (70 - 110 mg/dL) 197 H POC Glucose (70 - 110 MG/DL) 172 H 108 172 H 18 6 H Calcium (8.0 - 10.5 mg/dL) 9.3 Phosphorus (2.5 - 4.9 MG/DL) 5.5 H Magnesium (1.80 - 2.40 mg/dL) 2.32 Hematology WBC (4.5 - 11.0 x10 3/uL) 10.0 RBC (3.54 - 5.02 x10 6/uL) 2.96 L Hgb (11.0 - 15.0 g/dL) 9.0 L Hct (33.0 - 45.0 %) 30.7 L MCV (81.0 - 99.0 fL) 103.7 H MCH (27.0 - 33.0 pg) 30.4 MCHC (33.0 - 37.0 g/dL) 29.3 L RDW (11.5 - 14.5 %) 15.3 H Plt Count (150 - 400 x10 3/uL) 170 MPV (7.0 - 9.0 fL) 9.7 H Neut % (Auto) (56.0 - 77.0 %) 86.3 H Lymph % (Auto) (14.0 - 32.0 %) 3.8 L Kerr % (Auto) (4.8 - 9.0 %) 7.3 Eos % (Auto) (0.3 - 3.7 %) 2.2 Baso % (Auto) (0.0 - 2.0 %) 0.1 Neut # (Auto) (2.0 - 7.6 x10 3/uL) 8.61 H Lymph # (Auto) (1.0 - 3.8 x10 3/uL) 0.38 L Kerr # (Auto) (0.1 - 0.8 x10 3/uL) 0.73 Eos # (Auto) (0.0 - 0.2 x10 3/uL) 0.22 H Baso # (Auto) (0.0 - 0.2 x10 3/uL) 0.01 Abs Immat Gran (auto) (0.00 - 0.03 0.03 x10 3/uL) Add Manual Diff NO Immature Gran % (0.0 - 2.0 %) 0.3 Nucleated RBC % (0 - 0 %) 0.0 Nucleated RBCs # (Man) (0.0 - 0.1 0.00 x10 3/uL) Diagnosis, Assessment Plan Free Text A P: 67-year-old female with weakness and impaired mo bility 2/2 cardiac myopathy positive for NSTEMI Multivessel CAD, acute on ch ronic diastolic heart failure -End-stage renal disease on hemodialysis -Severe PVD-(s/p MORPHOLOGIST and ath erectomy with CSI followed by MORPHOLOGIST with TAVR balloon on left anterior and posterior tibial artery. CT O of right anterior/posterior tibial artery- will need staged intervention) -Uremic Neuropathy -Uremic Myopathy -Generalized weakness -Impaired mobility, gait, balance, ADLs, and end urance -Acute hypoxemia resp failure -Acute on chronic diastolic HF -Diabetes type 2 with hyperglycemia -Hypertension -COPD -Multiple wounds on feet and hands Plan: Continue supportive and preventative care Wound care team is following wound care manageme nt Continue PT/OT Out of bed to chair Work on ADLs, strength, bed mobility, transfers, gait DVT prophylaxis on SCD Strict fall and safety precautions Monitor p.o. intake and nutrition Strict decubitus precautions Monitor labs Patient has not been seen by therapy keiry allen since initial eval was on 06/23/2022 We we will reorder therapy updates Pt would benefit from a comprehensive rehab prog mitul in [facility] addressing her impaired functional mobility, gait, balance and endurance impairments, while being closely monitored by P and medical teams. She is at high risk for acute HF issues, cardiac arrhythmia, re occlusion to B LE. Pt is agreeable and cable of the 3 hour therapy session required TT:35 mins: time spent reviewing chart, meds, la bs notes and assessing pt and discussing rehab poc. Answered all quesions Consultants: cardiology, cardiovascular surgery, nephrology, wound care Rehab attestation: Face to face exam completed. Treatment plan disc ussed with patient. at 2231 RPT #:[id number] END OF REPORT 2022-06-29 16:23[facility]00-00:00 [facility] Pulmon[facility] Progress Note REPORT#:[id number] REPORT STATUS: Signed DATE:06/29/22 TIME: 3 PATIENT: MESERET MOTTA UNIT #: [id number] ROOM/BED: 4421-1 : 56 AGE: 67 SEX: F ATTEND: Skye Johnson ADM AUTHOR: Chris Estevez MD * ALL edits or amendments must be made on the Sum[employer]/computer document * Subjective Chief complaint: SOB Comments: Dialysis today No events ROS: no nausea/vomitting or chest pain Objective General VS/I O: Last Documented: Result Date Time Pulse Ox 100 06/29 1600 B/P 128/70 06/29 1600 O2 Delivery Nasal cannula 06/29 1600 O2 Flow Rate 4 06/29 1600 Temp 97.8 06/29 1600 Pulse 80 06/29 1600 Resp 18 06/29 1600 B/P Mean 97.5 06/29 1125 FiO2 21 06/28 2342 24 hour I O ending at 0700: 06/28 1900 06/29 0700 Intake Total 400 Output Total 4000 Balance -4000 400 Intake, Oral 400 Number Voids 2 Output, 4000 Hemodialysis PATIENT WEIGHT: Weight (lb): 245 Weight (oz): 9.52 Weight (kg): 111.13 Physical Exam General appearance: chronically ill appearing Head/eyes: atraumatic, normocephalic, PERRL Neck: supple/no meningismus, no bruit/NL carotid s, no lymphadenopathy Cardiovascular: normal S1/S2, no rub, no gallop Respiratory/chest: decreased breath sounds, symmetric expansion, no distress, no tenderness Abdomen: soft, normal bowel sounds, no distentio n, no guarding Extremities: edema, no clubbing Neuro/SURGICAL SPECIALIST: alert, oriented X 3, no motor deficit s Skin: dry, normal color Ulcer: Type/cause: diabetic, arterial Location: foot (bilateral toes) Psychiatry: normal affect, no hallucinations Results Findings/Data: Laboratory Tests 06/29/22 0600: [Embedded Image Not Available] Laboratory Tests 06/28 06/28 06/29 06/29 06/29 1847 1939 0600 0756 1124 Chemistry Sodium (134 - 147 mEq/L) 137 Potassium (3.4 - 5.0 mEq/L) 4.3 Chloride (100 - 108 mEq/L) 102 Carbon Dioxide (21 - 33 mEq/l) 24 Anion Gap (0 - 20) 15 BUN (7 - 18 mg/dL) 28 H Creatinine (0.6 - 1.3 mg/dL) 4.8 H Glomerular Filtr Rate (80 - 90) 9.5 L Glucose (70 - 110 mg/dL) 197 H POC Glucose (70 - 110 MG/DL) 156 H 141 H 186 H 172 H Calcium (8.0 - 10.5 mg/dL) 9.3 Phosphorus (2.5 - 4.9 MG/DL) 5.5 H Magnesium (1.80 - 2.40 mg/dL) 2.32 06/29 1536 Chemistry POC Glucose (70 - 110 MG/DL) 108 Laboratory Tests 06/29 0600 Hematology WBC (4.5 - 11.0 x10 3/uL) 10.0 RBC (3.54 - 5.02 x10 6/uL) 2.96 L Hgb (11.0 - 15.0 g/dL) 9.0 L Hct (33.0 - 45.0 %) 30.7 L MCV (81.0 - 99.0 fL) 103.7 H MCH (27.0 - 33.0 pg) 30.4 MCHC (33.0 - 37.0 g/dL) 29.3 L RDW (11.5 - 14.5 %) 15.3 H Plt Count (150 - 400 x10 3/uL) 170 MPV (7.0 - 9.0 fL) 9.7 H Neut % (Auto) (56.0 - 77.0 %) 86.3 H Lymph % (Auto) (14.0 - 32.0 %) 3.8 L Kerr % (Auto) (4.8 - 9.0 %) 7.3 Eos % (Auto) (0.3 - 3.7 %) 2.2 Baso % (Auto) (0.0 - 2.0 %) 0.1 Neut # (Auto) (2.0 - 7.6 x10 3/uL) 8.61 H Lymph # (Auto) (1.0 - 3.8 x10 3/uL) 0.38 L Kerr # (Auto) (0.1 - 0.8 x10 3/uL) 0.73 Eos # (Auto) (0.0 - 0.2 x10 3/uL) 0.22 H Baso # (Auto) (0.0 - 0.2 x10 3/uL) 0.01 Abs Immat Gran (auto) (0.00 - 0.03 x10 3/uL) 0. 03 Add Manual Diff NO Immature Gran % (0.0 - 2.0 %) 0.3 Nucleated RBC % (0 - 0 %) 0.0 Nucleated RBCs # (Man) (0.0 - 0.1 x10 3/uL) 0.0 0 Diagnosis, Assessment Plan Free Text A P: 1- Acute hypoxemic respiratory failure 2- Acute pulm edema 3- Cardiology disease status post PCI 4- Chronic diastolic heart failure HFpEF 5- End-stage renal disease on hemodialysis 6- Hypertension/DM2 7- Peripheral vascular disease/ischemic ulcer 8- Obesity ? Underlying JAMILAH - Continue nasal cannula O2, titrate to keep sat s above 94% - Hemodialysis with fluid removal per nephrology service - DuoNeb every 4 hours as needed - Continue to optimize heart failure management, blood pressure control - Wound care - Outpatient sleep study - DVT prophylaxis Electronically Signed by Chris Estevez MD on 06/09 08/30 at 1624 RPT #:[id number] END OF REPORT 2022-06-29 15:26:00-00:00 [facility] ([facility]) Wound Care Progress Note REPORT#:[id number] REPORT STATUS: Signed DATE:06/29/22 TIME: 152 PATIENT: MESERET MOTTA UNIT #: [id number] ROOM/BED: [place] [id number] : 56 AGE: 67 SEX: F ATTEND: Skye Johnson ADM AUTHOR: Sybil Byers MD * ALL edits or amendments must be made on the Summay/computer document * Subjective Chief complaint: Woundcare FU for foot, hand leg ulcers; no extre mity pain. Objective General Medications: Active Meds + DC'd Last 24 Hrs Sodium Chloride (OCEAN) 1 SPRAY Q2H PRN PRN NASA L Albuterol/Ipratropium (DUONEB) 3 ML RTQ4H PRN DC N NEB Ticagrelor (BRILINTA) 90 MG Q12HR PO Ampicillin Sodium/Sulbactam Sodium (UNASYN 3GM) 3 GM 2100 IV Sodium Chloride (SODIUM CHLORIDE 0.9% 100 ML) 1 00 ML Hydrocodone Bitart/Acetaminophen (NORCO 5/325) 1 TAB Q6H PRN PRN PO Hydrocodone Bitart/Acetaminophen (NORCO 10/325) 1 TAB Q6H PRN PRN PO Atropine Sulfate (ATROPINE SULFATE 0.1MG/ML SYR) 0.5 MG ASDIR PRN IV Sodium Chloride (SODIUM CHLORIDE 0.9%) 500 ML DIR PRN IV Sevelamer Carbonate (RENVELA) 3,200 MG C MEALS P O Epoetin Vanesa-epbx (RETACRIT) 6,000 UNIT TuThSa@2 100 SUBQ Mupirocin (BACTROBAN 2% 22 GM OINTMENT) 1 APPLIC BID TOPICAL (DC) Calcitriol (RocaltroL) 0.5 MCG DAILY PO Midodrine (PROAMATINE) 5 MG 0900,1300,1700 PO Levothyroxine Sodium (LEVOTHYROXINE SODIUM) 150 MCG DAILY 0600 PO Buspirone HCl (BUSPAR) 5 MG BID PO Metoprolol Tartrate (LOPRESSOR) 12.5 MG Q12HR PO Pantoprazole (PROTONIX) 40 MG 0600,1800 PO Midodrine (PROAMATINE) 10 MG DIALYSIS-DOSE BEFOR E PO (CKD) Albumin Human (ALBUMINAR-25%) 12.5 GM ASDIR PRN IV Heparin Sodium (Porcine) (HEPARIN SODIUM) 3,000 UNIT ASDIR PRN DIALYSIS Lidocaine HCl (LIDOCAINE HCL/PF) 0.5 ML ASDIR DC N I-DERMAL (CKD) Mannitol (MANNITOL 25% 12.5GM/50ML) 12.5 GM ASDI R PRN IV Sodium Chloride (SODIUM CHLORIDE 0.9%) 2,000 ML ASDIR PRN IV Sodium Chloride (SODIUM CHLORIDE) 5 ML ASDIR PRN IV Sodium Chloride (SODIUM CHLORIDE) 10 ML ASDIR DC N IV Sodium Chloride (SODIUM CHLORIDE 0.9%) 250 ML DIR PRN IV Aspirin (ASPIRIN) 81 MG C BK PO Atorvastatin Calcium (LIPITOR) 40 MG 2100 PO Insulin Human Lispro (HUMALOG) 0 AC HS SUBQ Dextrose/Water (DEXTROSE 10% IN WATER) 125 ML DIR PRN IV (CKD) Dextrose/Water (DEXTROSE 10% IN WATER) 250 ML DIR PRN IV (CKD) Glucagon (GLUCAGON) 1 MG ASDIR PRN IM Melatonin (Melatonin) 3 MG BEDTIME PRN PRN PO Acetaminophen (TYLENOL) 650 MG Q4H PRN PRN PO Heparin Sodium (HEPARIN 5000 UNITS/ML) 5,000 UNI T ASDIR PRN IV Nitroglycerin (NITROSTAT) 0.4 MG Q5M PRN PRN SL Ondansetron HCl (ZOFRAN) 4 MG Q6H PRN PRN IV Dietitian Nutrition assessment The data set between the solid lines has been im ported from the dietitian's assessment. BMI Calculated: 39.6 Nutrition related diagnosis: Nutrition diagnosis details: Nutrition problem: Nutrition etiology: Nutrition signs and symptoms: Nutrition prescription: Dietitian name: Assessment completed: Physical Exam General appearance: awake Skin: Multiple PT ulcers abrasions on B hands, B feet, L>R, w erythema 0ver L dorsum foot L forefoot. Ulcers on dorsum toes, L >R, w erythema @ forefoot, piunched-out appearance suggestive of arterial u lcers. LLE warm, RLE cold to touch. Ulcer: Type/cause: diabetic, arterial Location: foot (bilateral toes) Results Findings/Data: Laboratory Tests: 06/29 06/29 06/29 06/28 06/28 [id number] [id number] Chemistry Sodium (134 - 147 mEq/L) 137 Potassium (3.4 - 5.0 mEq/L) 4.3 Chloride (100 - 108 mEq/L) 102 Carbon Dioxide (21 - 33 mEq/l) 24 Anion Gap (0 - 20) 15 BUN (7 - 18 mg/dL) 28 H Creatinine (0.6 - 1.3 mg/dL) 4.8 H Glomerular Filtr Rate (80 - 90) 9.5 L Glucose (70 - 110 mg/dL) 197 H POC Glucose (70 - 110 MG/DL) 172 H 186 H 141 H 156 H Calcium (8.0 - 10.5 mg/dL) 9.3 Phosphorus (2.5 - 4.9 MG/DL) 5.5 H Magnesium (1.80 - 2.40 mg/dL) 2.32 Hematology WBC (4.5 - 11.0 x10 3/uL) 10.0 RBC (3.54 - 5.02 x10 6/uL) 2.96 L Hgb (11.0 - 15.0 g/dL) 9.0 L Hct (33.0 - 45.0 %) 30.7 L MCV (81.0 - 99.0 fL) 103.7 H MCH (27.0 - 33.0 pg) 30.4 MCHC (33.0 - 37.0 g/dL) 29.3 L RDW (11.5 - 14.5 %) 15.3 H Plt Count (150 - 400 x10 3/uL) 170 MPV (7.0 - 9.0 fL) 9.7 H Neut % (Auto) (56.0 - 77.0 %) 86.3 H Lymph % (Auto) (14.0 - 32.0 %) 3.8 L Kerr % (Auto) (4.8 - 9.0 %) 7.3 Eos % (Auto) (0.3 - 3.7 %) 2.2 Baso % (Auto) (0.0 - 2.0 %) 0.1 Neut # (Auto) (2.0 - 7.6 x10 3/uL) 8.61 H Lymph # (Auto) (1.0 - 3.8 x10 3/uL) 0.38 L Kerr # (Auto) (0.1 - 0.8 x10 3/uL) 0.73 Eos # (Auto) (0.0 - 0.2 x10 3/uL) 0.22 H Baso # (Auto) (0.0 - 0.2 x10 3/uL) 0.01 Abs Immat Gran (auto) (0.00 - 0.03 0.03 x10 3/uL) Add Manual Diff NO Immature Gran % (0.0 - 2.0 %) 0.3 Nucleated RBC % (0 - 0 %) 0.0 Nucleated RBCs # (Man) (0.0 - 0.1 0.00 x10 3/uL) Diagnosis, Assessment Plan Free Text A P: Multiple ulcers, B feet, B hands , sp fall, w ar terial ulcers, B feet - Bactroban BID to all ulcers, leave open to air. Xeroform to LLE foot ulcers Wound cx- rare Enterococcus ; XR of L foot - no acute changes, mild degenerative changes. Severe PVD, BLE - sp angio LLE CAD- tx per cardiology DM ESRD on HD [ x] Optimize Nutrition and Glycemic Control [ x] Pressure relieving inte rventions (Low Air Mattress, Prevalon boot, Turn q2h ) [ x] Nursing to implement impaired skin integrit y care plan as per skin care protocol Coordinattion of care D/W [ ] Other MD's [x ] Alex peace [ ] Family [ x ] Nursing [ ] Case Management Electronically Signed by Sybil Byers MD on at 2339 RPT #:[id number] END OF REPORT 2022-06-29 08:51:00-00:00 [facility] ([facility]) Cardiology Progress Note REPORT#:[id number] REPORT STATUS: Signed DATE:06/29/22 TIME: 850 PATIENT: MESERET MOTTA UNIT #: [id number] ROOM/BED: [place] [id number] : 56 AGE: 67 SEX: F ATTEND: Adonis Gaytan MD ADM AUTHOR: Sabrina Tirado NP * ALL edits or amendments must be made on the Summay/computer document * Subjective Chief complaint: feeling better Objective General VS/I O: Laboratory Tests 06/29/22 0600: [Embedded Image Not Available] 06/28/22 0535: [Embedded Image Not Available] 06/28/22 0535: [Embedded Image Not Available] Current Medications Sig/Enedina Start time Last Medication Dose Route Stop Time Status Admin Sodium Chloride 1 SPRAY Q2H PRN PRN 06/29 1015 A C NASAL 07/29 1014 Albuterol/Ipratropiu 3 ML RTQ4H PRN PRN 06/28 12 15 AC m NEB 07/28 1214 Ticagrelor 90 MG Q12HR 06/28 1115 AC 06/29 PO 07/28 1114 0823 Ampicillin Sodium/ 3 GM 2100 06/27 2100 AC 06/28 Sulbactam Sodium IV 12/27 2059 2113 Sodium Chloride 100 ML Hydrocodone Bitart/ 1 TAB Q6H PRN PRN 06/27 1645 AC 06/29 Acetaminophen PO 07/02 1644 1154 Hydrocodone Bitart/ 1 TAB Q6H PRN PRN 06/27 1645 AC 06/28 Acetaminophen PO 07/02 1644 1456 Atropine Sulfate 0.5 MG ASDIR PRN 06/27 1600 AC IV 07/27 1559 Sodium Chloride 500 ML ASDIR PRN 06/27 1600 AC IV 07/27 1559 Sevelamer Carbonate 3,200 MG C MEALS 06/26 0800 AC 06/29 PO 07/26 0759 0823 Epoetin Vanesa-epbx 6,000 UNIT TuThSa@2100 06/24 2 100 AC 06/27 SUBQ 07/24 2058 214 Mupirocin 1 APPLIC BID 06/23 1800 DC 06/28 TOPICAL 06/28 175 0904 Calcitriol 0.5 MCG DAILY 06/23 0900 AC 06/29 PO 07/23 0859 0823 Midodrine 5 MG 0900,1300,1700 06/23 0900 AC 06/09 2 PO 07/23 0859 1154 Levothyroxine Sodium 150 MCG DAILY 0600 06/23 06 00 AC 06/29 PO 07/23 0559 0559 Buspirone HCl 5 MG BID 06/22 2100 AC 06/29 PO 07/22 2058 0824 Metoprolol Tartrate 12.5 MG Q12HR 06/22 2100 AC 06/29 PO 07/22 2058 0824 Pantoprazole 40 MG 0600,1800 06/22 1800 AC 06/29 PO 07/22 175 0559 Midodrine 10 MG DIALYSIS-DOSE 06/22 1545 CKD BEFORE PO 07/22 1544 1856 Albumin Human 12.5 GM ASDIR PRN 06/22 1530 AC IV 07/23 1529 1909 Heparin Sodium 3,000 UNIT ASDIR PRN 06/22 1530 A C 06/28 (Porcine) DIALYSIS 07/22 1529 1512 Lidocaine HCl 0.5 ML ASDIR PRN 06/22 1530 CKD I-DERMAL 07/23 1529 Mannitol 12.5 GM ASDIR PRN 06/22 1530 AC IV 07/23 1529 Sodium Chloride 2,000 ML ASDIR PRN 06/22 1530 AC 06/28 IV 07/23 1529 1512 Sodium Chloride 5 ML ASDIR PRN 06/22 1530 AC IV 07/22 1529 Sodium Chloride 10 ML ASDIR PRN 06/22 1530 AC IV 07/22 1529 1514 Sodium Chloride 250 ML ASDIR PRN 06/22 1530 AC IV 07/22 1529 Aspirin 81 MG C BK 06/22 0800 AC 06/29 PO 07/22 0759 0824 Atorvastatin Calcium 40 MG 2100 06/21 2100 AC PO 07/21 2058 211 Insulin Human Lispro 0 AC HS 06/21 2100 AC 06/29 SUBQ 07/21 2058 0823 Dextrose/Water 125 ML ASDIR PRN 06/21 1900 CKD IV 07/21 1859 Dextrose/Water 250 ML ASDIR PRN 06/21 1900 CKD IV 07/21 1859 Glucagon 1 MG ASDIR PRN 06/21 1900 AC IM 07/21 1859 Melatonin 3 MG BEDTIME PRN PRN 06/21 1900 AC PO 07/21 1859 0102 Acetaminophen 650 MG Q4H PRN PRN 06/21 1730 AC 1 08/28 PO 07/21 1729 1301 Heparin Sodium 5,000 UNIT ASDIR PRN 06/21 1730 A C 06/22 IV 07/21 1729 1449 Nitroglycerin 0.4 MG Q5M PRN PRN 06/21 1730 AC SL 07/21 1729 Ondansetron HCl 4 MG Q6H PRN PRN 06/21 1730 AC 1 08/29 IV 07/21 1729 2118 24 hour I O ending at 0700: 06/29 0700 06/28 1900 Intake Total 400 Output Total 4000 Balance 400 -4000 Intake, Oral 400 Number Voids 2 Output, 4000 Hemodialysis Vital Signs: Date Time Temp Pulse Resp B/P B/P Pulse O2 O2 F low FiO2 Mean Ox Delivery Rate 06/29 1125 36.7 69 18 132/80 97.5 98 Nasal cannula 06/29 0755 36.4 72 17 113/70 84.4 100 Room air 06/29 0445 79 11 130/77 94.2 100 06/28 2342 97 Room air 21 06/28 1951 36.8 92 11 146/80 102.0 97 06/28 185 37.1 78 16 133/63 99 Nasal 3 cannula 06/28 1515 36.9 74 19 119/88 98 Nasal 3 cannula PATIENT WEIGHT: Weight (lb): 245 Weight (oz): 9.52 Weight (kg): 111.13 Physical Exam General appearance: alert, awake, oriented, no a cute distress Neck: non-tender, no JVD Cardiovascular: CV assessment: regular rate and rhythm Respiratory: decreased breath sounds, on oxygen, no distress Abdomen: non-tender, obese Genitourinary: no flank pain, no urinary cathete r Lower extremity: LE assessment: edema, abnormal pedal pulse Musculoskeletal: normal inspection Neuro/SURGICAL SPECIALIST: alert, oriented X 3, normal speech Skin: scabs lower extremities Ulcer: Type/cause: diabetic, arterial Location: foot (bilateral toes) Psychiatry: normal affect, normal mood Diagnosis, Assessment Plan Consultants: cardiology, cardiovascular surgery, nephrology, wound care Free Text DxA P Notes Free Text DxA P Notes: 67 YO female with PMHx of HTN, DM, CHF, ESRD on HD who initially presented at [facility] with SOB and fatigue. Sh regan was treated for NSTEMI and acute CHF exacerbation. 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 She is transferred her for CABG evaluation but deemed too high risk for CABG with STS risk score of 17%. 1. NSTEMI/Multivessel CAD 06/27/22: s/p PCI to LCx wit h 2.25 x 20 mm and post dilated with 2.5 NC balloon continue ASA, Brilinta, BB, and statin need staged PCI to mid and proximal LAD in 1-2 w eeks stable 2. Acute on chronic Diastolic CHF volume management per nephrology echo from OSH LVEF 50% 3. ESRD on HD per nephrology 4. Diabetes mellitus per admitting team 5. Hypertension -> hypotension on midodrine continue low-dose beta-susan for CAD bp now stable 6. Toe ulcers/severe PAD 06/26/21: s/p peripheral angiogram and MORPHOLOGIST to th e anterior tibial artery ORE ROASTER of right anterior/posterior tibial artery, n eed staged intervention on a later date PT/OT- Rehab eval ongoing at 1209 Electronically Signed by Herson Tang MD on at 0687 RPT #:[id number] END OF REPORT 2022-06-29 08:00:00-00:00 [facility] ([facility]) Hospitalist Progress Note REPORT#:[id number] REPORT STATUS: Signed DATE:06/29/22 TIME: 0800 PATIENT: MESERET MOTTA UNIT #: [id number] ROOM/BED: [place] [id number] : 56 AGE: 67 SEX: F ATTEND: Skye Johnson ADM AUTHOR: Skye Johnson MD * ALL edits or amendments must be made on the Summay/computer document * Subjective Chief complaint: Plan for hemodialysis today, on 2 L oxygen, overall feeling better, waiting for PT/OT eval, case management consulted for inpati ent rehab. Objective General VS/I O: Vital Signs: Date Time Temp Pulse Resp B/P B/P Pulse O2 O2 F low FiO2 Mean Ox Delivery Rate 06/29 1210 97.8 79 18 139/77 98 Nasal 4 cannula 06/29 1125 98.1 69 18 132/80 97.5 98 Nasal cannula 06/29 0800 Nasal 2 cannula 06/29 0755 97.5 72 17 113/70 84.4 100 Room air 06/29 0445 79 11 130/77 94.2 100 06/28 2342 97 Room air 21 06/28 1951 98.2 92 11 146/80 102.0 97 06/28 1853 98.7 78 16 133/63 99 Nasal 3 cannula 06/28 1515 98.4 74 19 119/88 98 Nasal 3 cannula 24 hour I O ending at 0700: 06/29 0700 06/28 1900 Intake Total 400 Output Total 4000 Balance 400 -4000 Intake, Oral 400 Number Voids 2 Output, 4000 Hemodialysis PATIENT WEIGHT: Weight (lb): 245 Weight (oz): 9.52 Weight (kg): 111.13 Medications: Active Meds + DC'd Last 24 Hrs Sodium Chloride (OCEAN) 1 SPRAY Q2H PRN PRN NASA L Albuterol/Ipratropium (DUONEB) 3 ML RTQ4H PRN DC N NEB Ticagrelor (BRILINTA) 90 MG Q12HR PO Ampicillin Sodium/Sulbactam Sodium (UNASYN 3GM) 3 GM 2100 IV Sodium Chloride (SODIUM CHLORIDE 0.9% 100 ML) 1 00 ML Hydrocodone Bitart/Acetaminophen (NORCO 5/325) 1 TAB Q6H PRN PRN PO Hydrocodone Bitart/Acetaminophen (NORCO 10/325) 1 TAB Q6H PRN PRN PO Atropine Sulfate (ATROPINE SULFATE 0.1MG/ML SYR) 0.5 MG ASDIR PRN IV Sodium Chloride (SODIUM CHLORIDE 0.9%) 500 ML DIR PRN IV Sevelamer Carbonate (RENVELA) 3,200 MG C MEALS P O Epoetin Vanesa-epbx (RETACRIT) 6,000 UNIT TuThSa@2 100 SUBQ Mupirocin (BACTROBAN 2% 22 GM OINTMENT) 1 APPLIC BID TOPICAL (DC) Calcitriol (RocaltroL) 0.5 MCG DAILY PO Midodrine (PROAMATINE) 5 MG 0900,1300,1700 PO Levothyroxine Sodium (LEVOTHYROXINE SODIUM) 150 MCG DAILY 0600 PO Buspirone HCl (BUSPAR) 5 MG BID PO Metoprolol Tartrate (LOPRESSOR) 12.5 MG Q12HR PO Pantoprazole (PROTONIX) 40 MG 0600,1800 PO Midodrine (PROAMATINE) 10 MG DIALYSIS-DOSE BEFOR E PO (CKD) Albumin Human (ALBUMINAR-25%) 12.5 GM ASDIR PRN IV Heparin Sodium (Porcine) (HEPARIN SODIUM) 3,000 UNIT ASDIR PRN DIALYSIS Lidocaine HCl (LIDOCAINE HCL/PF) 0.5 ML ASDIR DC N I-DERMAL (CKD) Mannitol (MANNITOL 25% 12.5GM/50ML) 12.5 GM ASDI R PRN IV Sodium Chloride (SODIUM CHLORIDE 0.9%) 2,000 ML ASDIR PRN IV Sodium Chloride (SODIUM CHLORIDE) 5 ML ASDIR PRN IV Sodium Chloride (SODIUM CHLORIDE) 10 ML ASDIR DC N IV Sodium Chloride (SODIUM CHLORIDE 0.9%) 250 ML DIR PRN IV Aspirin (ASPIRIN) 81 MG C BK PO Atorvastatin Calcium (LIPITOR) 40 MG 2100 PO Insulin Human Lispro (HUMALOG) 0 AC HS SUBQ Dextrose/Water (DEXTROSE 10% IN WATER) 125 ML DIR PRN IV (CKD) Dextrose/Water (DEXTROSE 10% IN WATER) 250 ML DIR PRN IV (CKD) Glucagon (GLUCAGON) 1 MG ASDIR PRN IM Melatonin (Melatonin) 3 MG BEDTIME PRN PRN PO Acetaminophen (TYLENOL) 650 MG Q4H PRN PRN PO Heparin Sodium (HEPARIN 5000 UNITS/ML) 5,000 UNI T ASDIR PRN IV Nitroglycerin (NITROSTAT) 0.4 MG Q5M PRN PRN SL Ondansetron HCl (ZOFRAN) 4 MG Q6H PRN PRN IV Physical Exam General appearance: alert, awake, oriented Head/Eyes: atraumatic, clear cornea, EOMI, kristopher l conjunctiva/sclera, PERRLA ENT: moist mucosal membranes Neck: supple/no meningismus, no JVD Cardiovascular: normal heart sounds, regular rat e rhythm, no murmur Respiratory: aerating well, clear to auscultatio n, symmetric expansion Abdomen: non-tender, normal bowel sounds, soft, no distention Extremities: edema, moves all Neuro/SURGICAL SPECIALIST: alert, oriented X 3, normal speech, n o motor deficits Ulcer: Type/cause: diabetic, arterial Location: foot (bilateral toes) Psychiatry: normal affect Results Findings/Data: Laboratory Tests 06/29 06/29 06/29 06/28 06/28 1124 0756 0600 1939 1847 Chemistry Sodium (134 - 147 mEq/L) 137 Potassium (3.4 - 5.0 mEq/L) 4.3 Chloride (100 - 108 mEq/L) 102 Carbon Dioxide (21 - 33 mEq/l) 24 Anion Gap (0 - 20) 15 BUN (7 - 18 mg/dL) 28 H Creatinine (0.6 - 1.3 mg/dL) 4.8 H Glomerular Filtr Rate (80 - 90) 9.5 L Glucose (70 - 110 mg/dL) 197 H POC Glucose (70 - 110 MG/DL) 172 H 186 H 141 H 156 H Calcium (8.0 - 10.5 mg/dL) 9.3 Phosphorus (2.5 - 4.9 MG/DL) 5.5 H Magnesium (1.80 - 2.40 mg/dL) 2.32 Laboratory Tests 06/29 0600 Hematology WBC (4.5 - 11.0 x10 3/uL) 10.0 RBC (3.54 - 5.02 x10 6/uL) 2.96 L Hgb (11.0 - 15.0 g/dL) 9.0 L Hct (33.0 - 45.0 %) 30.7 L MCV (81.0 - 99.0 fL) 103.7 H MCH (27.0 - 33.0 pg) 30.4 MCHC (33.0 - 37.0 g/dL) 29.3 L RDW (11.5 - 14.5 %) 15.3 H Plt Count (150 - 400 x10 3/uL) 170 MPV (7.0 - 9.0 fL) 9.7 H Neut % (Auto) (56.0 - 77.0 %) 86.3 H Lymph % (Auto) (14.0 - 32.0 %) 3.8 L Kerr % (Auto) (4.8 - 9.0 %) 7.3 Eos % (Auto) (0.3 - 3.7 %) 2.2 Baso % (Auto) (0.0 - 2.0 %) 0.1 Neut # (Auto) (2.0 - 7.6 x10 3/uL) 8.61 H Lymph # (Auto) (1.0 - 3.8 x10 3/uL) 0.38 L Kerr # (Auto) (0.1 - 0.8 x10 3/uL) 0.73 Eos # (Auto) (0.0 - 0.2 x10 3/uL) 0.22 H Baso # (Auto) (0.0 - 0.2 x10 3/uL) 0.01 Abs Immat Gran (auto) (0.00 - 0.03 x10 3/uL) 0. 03 Add Manual Diff NO Immature Gran % (0.0 - 2.0 %) 0.3 Nucleated RBC % (0 - 0 %) 0.0 Nucleated RBCs # (Man) (0.0 - 0.1 x10 3/uL) 0.0 0 Diagnosis, Assessment Plan Consultants: cardiology, cardiovascular surgery, nephrology, wound care Free Text DxA P Notes Free text DxA P notes: Assessment and plans: Three-vessel coronary artery disease CV surgery following. Dopplers, alexandro duplex were ordered patient is off the heparin drip on aspirin, Brilinta, atorvastatin, metoprolol -echo from OSH LVEF 50% cardiology seen -S/p PCI to left circumflex 06/27 Patient needs staged PCI to mid and proximal LAD in 1 to 2 weeks as outpatient Severe PAD/toe ulcer: Status post MORPHOLOGIST and atherec cheri with CSI followed by MORPHOLOGIST with stable balloon on left anterior and posterior tibial artery, for r ight anterior and posterior tibial artery Will need staged intervention as p er cardiology. 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 Plan for peripheral angiogram in the morning as per c ardiology 06/29 Acute respiratory failure with hypoxemia Patient presented with supplemental nasal cannu la oxygen -Pulmonary edema, pleural effusion on CT chest, no PE Patient needs to be evaluated for home oxygen o nce patient is medically cleared for discharge On 2 L oxygen via nasal cannula 06/29 DuoNeb treatment Pulmonary consulted -Continue to optimize heart failure management, blood pressure control and Outpatient sleep study Leukocytosis: -CT chest result done -Afebrile -Patient has multiple ulcers in hands and feet. Wound cx growing ent fecalis, rocephin switched to unasyn 07/04 -blood culture 06/26 (was not ordered on admissi on) no growth till now End-stage renal disease on hemodialysis Patient is on a Sunday sched jaxon Banana Ripening Room Supervisor following Functional quadriplegia: Rehab consult as recommended by cardiology. Pat ient lives alone. 06/28 Elevated LFTs Secondary to hepatic congestion Monitor LFTs Type 2 diabetes mellitus on insulin sliding scale Diabetic diet Hypothyroidism Resume Synthroid Anemia of chronic disease -Transfuse for Hb <7 -No bleeding hypotension on midodrine on empiric IV CTX check labs in am SCD for DVT prophylaxis. Disposition: S/p PCI and 1 stent placement in le ft circumflex, plan for peripheral angiogram to right anterior and poste rior tibial artery. On 2 L oxygen via nasal cannula. On Unasyn. Patient ricki es alone. Case management consulted for inpatient rehab. [facility] care. Quality: Gen Med Crit Care VTE Prophylaxis VTE prophylaxis initiated: yes Current Medications Current medication review: I attest that the foregoing medication list in t he medical record is true, accurate, and complete to the best of my knowled ge. Electronically Signed by Skye Johnson MD on 2 at 1508 [facility] #:[id number] END OF REPORT 2022-06-29 07:22[facility]00-00:00 [facility] Progress Note REPORT#:[id number] REPORT STATUS: Signed DATE:06/29/22 TIME: 721 PATIENT: MESERET MOTTA UNIT #: [id number] ROOM/BED: [place] [id number] : 56 AGE: 67 SEX: F ATTEND: Skye Johnson ADM AUTHOR: Jennifer Shelton MD * ALL edits or amendments must be made on the Summay/computer document * Subjective Chief complaint: Transferred for CABG HPI: Patient seen and evaluated, discussed with care team, 67-year-old female with history of end-stage renal d isease on chronic hemodialysis Sunday, and Sunday, diabetes mellitus, peripheral arterial disease and hypertension who was transferred to [facility] for CABG. Terrence nt initially presented to [facility] in [place] compl aining of shortness of breath. Underwent left heart cath which showed diffuse di sease and patient was transferred for evaluation for CABG. renal consult was requ ested for management of her end-stage renal disease/ hemodialysis. Patient reports: Yes: complaints. Comments: Patient seen and evaluated, HPI no change from i nitial, feels better Review of Systems Constitutional: Reports: fatigue. Denies: chills, fever. Skin: Denies: abrasion, bruising. Allergy/Immun: Denies: hives, itching. Eyes: Denies: redness, discharge. ENT: Denies: ear drainage, ear ringing. Respiratory: Denies: hemoptysis, wheezing. Cardiovascular: Denies: chest pain. Objective General VS/I O: Vital Signs: Date Time Temp Pulse Resp B/P B/P Pulse O2 O2 F low FiO2 Mean Ox Delivery Rate 06/29 0445 79 11 130/77 94.2 100 06/28 2342 97 Room air 06/28 36.8 92 11 146/80 102.0 97 06/28 1853 37.1 78 16 133/63 99 Nasal 3 cannula 06/28 1515 36.9 74 19 119/88 98 Nasal 3 cannula 06/28 1121 36.5 108 16 177/99 125.4 100 Nasal 7 cannula 06/28 0757 36.5 85 16 129/70 89.6 100 Nasal 3 cannula 06/28 0745 Nasal 3 cannula 24 hour I O ending at 0700: 06/29 0700 06/28 1900 Intake Total 400 Output Total 4000 Balance 400 -4000 Intake, Oral 400 Number Voids 2 Output, 4000 Hemodialysis PATIENT WEIGHT: Weight (lb): 245 Weight (oz): 9.52 Weight (kg): 111.13 Medications Active Meds + DC'd Last 24 Hrs Albuterol/Ipratropium (DUONEB) 3 ML RTQ4H PRN DC N NEB Ticagrelor (BRILINTA) 90 MG Q12HR PO Ampicillin Sodium/Sulbactam Sodium (UNASYN 3GM) 3 GM 2100 IV Sodium Chloride (SODIUM CHLORIDE 0.9% 100 ML) 1 00 ML Hydrocodone Bitart/Acetaminophen (NORCO 5/325) 1 TAB Q6H PRN PRN PO Hydrocodone Bitart/Acetaminophen (NORCO 10/325) 1 TAB Q6H PRN PRN PO Atropine Sulfate (ATROPINE SULFATE 0.1MG/ML SYR) 0.5 MG ASDIR PRN IV Sodium Chloride (SODIUM CHLORIDE 0.9%) 500 ML DIR PRN IV Sevelamer Carbonate (RENVELA) 3,200 MG C MEALS P O Epoetin Vanesa-epbx (RETACRIT) 6,000 UNIT TuThSa@2 100 SUBQ Clopidogrel Bisulfate (Plavix) 75 MG DAILY PO (D C) Mupirocin (BACTROBAN 2% 22 GM OINTMENT) 1 APPLIC BID TOPICAL (DC) Calcitriol (RocaltroL) 0.5 MCG DAILY PO Midodrine (PROAMATINE) 5 MG 0900,1300,1700 PO Levothyroxine Sodium (LEVOTHYROXINE SODIUM) 150 MCG DAILY 0600 PO Buspirone HCl (BUSPAR) 5 MG BID PO Metoprolol Tartrate (LOPRESSOR) 12.5 MG Q12HR PO Pantoprazole (PROTONIX) 40 MG 0600,1800 PO Midodrine (PROAMATINE) 10 MG DIALYSIS-DOSE BEFOR E PO (CKD) Albumin Human (ALBUMINAR-25%) 12.5 GM ASDIR PRN IV Heparin Sodium (Porcine) (HEPARIN SODIUM) 3,000 UNIT ASDIR PRN DIALYSIS Lidocaine HCl (LIDOCAINE HCL/PF) 0.5 ML ASDIR DC N I-DERMAL (CKD) Mannitol (MANNITOL 25% 12.5GM/50ML) 12.5 GM ASDI R PRN IV Sodium Chloride (SODIUM CHLORIDE 0.9%) 2,000 ML ASDIR PRN IV Sodium Chloride (SODIUM CHLORIDE) 5 ML ASDIR PRN IV Sodium Chloride (SODIUM CHLORIDE) 10 ML ASDIR DC N IV Sodium Chloride (SODIUM CHLORIDE 0.9%) 250 ML DIR PRN IV Aspirin (ASPIRIN) 81 MG C BK PO Atorvastatin Calcium (LIPITOR) 40 MG 2100 PO Insulin Human Lispro (HUMALOG) 0 AC HS SUBQ Dextrose/Water (DEXTROSE 10% IN WATER) 125 ML DIR PRN IV (CKD) Dextrose/Water (DEXTROSE 10% IN WATER) 250 ML DIR PRN IV (CKD) Glucagon (GLUCAGON) 1 MG ASDIR PRN IM Melatonin (Melatonin) 3 MG BEDTIME PRN PRN PO Acetaminophen (TYLENOL) 650 MG Q4H PRN PRN PO Heparin Sodium (HEPARIN 5000 UNITS/ML) 5,000 UNI T ASDIR PRN IV Nitroglycerin (NITROSTAT) 0.4 MG Q5M PRN PRN SL Ondansetron HCl (ZOFRAN) 4 MG Q6H PRN PRN IV Physical Exam General appearance: alert, no acute distress Head/eyes: atraumatic, normocephalic ENT: normal nose Neck: non-tender, supple/no meningismus Cardiovascular: normal heart sounds, no rub Respiratory: aerating well, symmetric expansion Abdomen: non-tender, soft Genitourinary: no flank pain Extremities: pitting edema, non-tender Musculoskeletal: no CVA tenderness, no tendernes s Neuro/SURGICAL SPECIALIST: alert, normal speech Skin: dry, intact Ulcer: Type/cause: diabetic, arterial Location: foot (bilateral toes) Results Findings/Data: Laboratory Tests 06/28 06/28 06/28 06/28 06/28 1939 1847 1120 0908 0535 Chemistry Sodium (134 - 147 mEq/L) 138 Potassium (3.4 - 5.0 mEq/L) 4.3 Chloride (100 - 108 mEq/L) 101 Carbon Dioxide (21 - 33 mEq/l) 25 Anion Gap (0 - 20) 17 BUN (7 - 18 mg/dL) 25 H Creatinine (0.6 - 1.3 mg/dL) 3.9 H Glomerular Filtr Rate (80 - 90) 12.1 L Glucose (70 - 110 mg/dL) 165 H POC Glucose (70 - 110 MG/DL) 141 H 156 H 112 H 167 H Calcium (8.0 - 10.5 mg/dL) 9.1 06/28 06/27 06/27 06/27 06/27 0535 2052 1628 1532 0825 Chemistry Sodium (134 - 147 mEq/L) 136 Potassium (3.4 - 5.0 mEq/L) 4.2 Chloride (100 - 108 mEq/L) 100 Carbon Dioxide (21 - 33 mEq/l) 22 Anion Gap (0 - 20) 18 BUN (7 - 18 mg/dL) 22 H Creatinine (0.6 - 1.3 mg/dL) 3.9 H Glomerular Filtr Rate (80 - 90) 12.1 L Glucose (70 - 110 mg/dL) 163 H POC Glucose (70 - 110 MG/DL) 99 147 H 154 H 171 H Calcium (8.0 - 10.5 mg/dL) 9.3 06/27 06/27 06/27 06/26 06/26 0800 0605 0442 1928 1400 Chemistry Sodium (134 - 147 mEq/L) 136 Potassium (3.4 - 5.0 mEq/L) 4.5 Chloride (100 - 108 mEq/L) 98 L Carbon Dioxide (21 - 33 mEq/l) 25 Anion Gap (0 - 20) 18 BUN (7 - 18 mg/dL) 34 H Creatinine (0.6 - 1.3 mg/dL) 4.9 H Glomerular Filtr Rate (80 - 90) 9.2 L Glucose (70 - 110 mg/dL) 169 H POC Glucose (70 - 110 MG/DL) 170 H 143 H 192 H Hemoglobin A1c (4.8 - 6.0 %A1C) 5.8 Calcium (8.0 - 10.5 mg/dL) 9.4 06/26 1141 Chemistry POC Glucose (70 - 110 MG/DL) 215 H Laboratory Tests 06/27 06/26 06/26 06/26 06/26 1429 1715 1648 1627 1605 Coagulation Activated Coag Time (74 - 137 SEC) 281 H 275 H 245 234 251 H Laboratory Tests 06/28 06/27 0535 0800 Hematology WBC (4.5 - 11.0 x10 3/uL) 10.8 9.4 RBC (3.54 - 5.02 x10 6/uL) 2.89 L 2.83 L Hgb (11.0 - 15.0 g/dL) 8.9 L 8.6 L Hct (33.0 - 45.0 %) 30.0 L 29.2 L MCV (81.0 - 99.0 fL) 103.8 H 103.2 H MCH (27.0 - 33.0 pg) 30.8 30.4 MCHC (33.0 - 37.0 g/dL) 29.7 L 29.5 L RDW (11.5 - 14.5 %) 15.6 H 15.5 H Plt Count (150 - 400 x10 3/uL) 149 L 139 L MPV (7.0 - 9.0 fL) 9.7 H 9.7 H Neut % (Auto) (56.0 - 77.0 %) 90.4 H 82.6 H Lymph % (Auto) (14.0 - 32.0 %) 2.7 L 6.4 L Kerr % (Auto) (4.8 - 9.0 %) 4.9 8.8 Eos % (Auto) (0.3 - 3.7 %) 1.4 1.5 Baso % (Auto) (0.0 - 2.0 %) 0.1 0.1 Neut # (Auto) (2.0 - 7.6 x10 3/uL) 9.74 H 7.78 H Lymph # (Auto) (1.0 - 3.8 x10 3/uL) 0.29 L 0.60 L Kerr # (Auto) (0.1 - 0.8 x10 3/uL) 0.53 0.83 H Eos # (Auto) (0.0 - 0.2 x10 3/uL) 0.15 0.14 Baso # (Auto) (0.0 - 0.2 x10 3/uL) 0.01 0.01 Abs Immat Gran (auto) (0.00 - 0.03 x10 3/uL) 0. 05 H 0.06 H Add Manual Diff NO NO Immature Gran % (0.0 - 2.0 %) 0.5 0.6 Nucleated RBC % (0 - 0 %) 0.0 0.0 Nucleated RBCs # (Man) (0.0 - 0.1 x10 3/uL) 0. 00 0.00 Laboratory Tests 06/26 1003 Serology SARS-CoV-2 Ag (Rapid) (Negative) Negative Laboratory Tests 06/28 1847 1120 0908 Chemistry POC Glucose (70 - 110 MG/DL) 141 H 156 H 112 H 167 H Diagnosis, Assessment Plan Free Text A P: Patient seen and evaluated, discussed with care team, images and laboratories reviewed. End-stage renal disease on c hronic hemodialysis, Sunday, and Sunday, plan for hemodialysis today Status post left heart cath with multi-vessel co ronary artery disease, respiratory evaluation for CABG. Hypertension: Monitor blood pressure closely and adjust medications as needed Hyperlipidemia: Lipitor Diabetes mellitus: Insulin: Monitor blood sugar closely adjust medications as needed Anemia: We will start Epogen 4000 subcu 3 times a week Elevated alkaline phosphatase we will check PTH. 06/23/2022 plan for filtration today if her bloo d pressure allows, had hemodialysis yesterday. See showed hemoglobin 9. 1, platelet 136, blood count 12.1. We will increase Epoge n to 6000 subcu 3 times a week, PTH 660 we will add Rocaltrol 0.5 mcg p.o. daily, will add midodrine 5 mg p.o. 3 times daily to allow for ultrafiltration. 06/24/2022 laboratory for th is morning showed sodium 136, potassium 4.9, CO2 23, BUN 50, creatinine 5.8, phos phorus 7.1 we will add Renvela 2 p.o. with each meal , hemoglobin 9.3, platelet 152, blood count 13.3 , for hemodialysis today, 4 hours, 2K, ultrafiltration 3 to 4 L if tolerated , seen during HD. 06/25/2022 laboratory this [facility] showed sodium 137, potassium 4.3, CO2 25, BUN 31, creatinine 4.5, alkaline phosphatase 272, st atus post ultrafiltration yesterday, 3.9 L removed, plan for dialysis in t he morning. 06/26/2022 laboratory this [facility] showed sodium 137, potassium 4.4, CO2 22, BUN 39, creatinine 5.4, hemoglob in 9.8, platelet 145, blood count 14, phosphorus 6.8 we will increase Renvela to 4 p.o. with each meal, plan for hemodialysis today, 4 hours, 3K, ultrafiltration 3 to 4 L if tolerat ed 06/27/2022 status post peripheral angiogram/inte rvention yesterday, only had less than 2 hours of dialysis yesterday due to hypotension postprocedure, will plan on hemodialysis today, 4 hours, 3K, ultrafiltration 3 to 4 L if tolerated 06/28/2022 status post hemodialysis yesterday, w ill plan for ultrafiltration today 3 to 4 L if tolerated. Laboratory this mor [facility]red[facility] showed sodium 136, potassium 4.2, CO2 22, BUN 22, creatinine 3.9, h emoglobin 8.9, platelet 149, blood count 10.8 06/29/2022 status post ultrafiltration yesterday 4 L removed, plan for hemodialysis today, 4 hours, 3K, ultrafiltration 3 to 4 L if tolerated. Consultants: cardiology, cardiovascular surgery, nephrology, wound care Electronically Signed by Jennifer Shelton MD on at 0929 RPT #:[id number] END OF REPORT 2022-06-28 16:53:00-00:00 [facility] ([facility]) Wound Care Progress Note REPORT#:[id number] REPORT STATUS: Signed DATE:06/28/22 TIME: 1652 PATIENT: MESERET MOTTA UNIT #: [id number] ROOM/BED: [place] [id number] : 56 AGE: 67 SEX: F ATTEND: Skye Johnson ADM AUTHOR: Sybil Byers MD * ALL edits or amendments must be made on the Summay/computer document * Subjective Chief complaint: Woundcare FU for foot, hand leg ulcers; no extre mity pain. Objective General Medications: Active Meds + DC'd Last 24 Hrs Albuterol/Ipratropium (DUONEB) 3 ML RTQ4H PRN DC N NEB Ticagrelor (BRILINTA) 90 MG Q12HR PO Ampicillin Sodium/Sulbactam Sodium (UNASYN 3GM) 3 GM 2100 IV Sodium Chloride (SODIUM CHLORIDE 0.9% 100 ML) 1 00 ML Sodium Chloride (SODIUM CHLORIDE 0.9%) 1,000 ML .[id number] ONE IV (DC) Hydrocodone Bitart/Acetaminophen (NORCO 5/325) 1 TAB Q6H PRN PRN PO Hydrocodone Bitart/Acetaminophen (NORCO 10/325) 1 TAB Q6H PRN PRN PO Atropine Sulfate (ATROPINE SULFATE 0.1MG/ML SYR) 0.5 MG ASDIR PRN IV Sodium Chloride (SODIUM CHLORIDE 0.9%) 1,000 ML .[id number] ONE IV (DC) Sodium Chloride (SODIUM CHLORIDE 0.9%) 500 ML DIR PRN IV Sevelamer Carbonate (RENVELA) 3,200 MG C MEALS P O Epoetin Vanesa-epbx (RETACRIT) 6,000 UNIT TuThSa@2 100 SUBQ Clopidogrel Bisulfate (Plavix) 75 MG DAILY PO (D C) Mupirocin (BACTROBAN 2% 22 GM OINTMENT) 1 APPLIC BID TOPICAL Calcitriol (RocaltroL) 0.5 MCG DAILY PO Midodrine (PROAMATINE) 5 MG 0900,1300,1700 PO Levothyroxine Sodium (LEVOTHYROXINE SODIUM) 150 MCG DAILY 0600 PO Buspirone HCl (BUSPAR) 5 MG BID PO Metoprolol Tartrate (LOPRESSOR) 12.5 MG Q12HR PO Pantoprazole (PROTONIX) 40 MG 0600,1800 PO Midodrine (PROAMATINE) 10 MG DIALYSIS-DOSE BEFOR E PO (CKD) Albumin Human (ALBUMINAR-25%) 12.5 GM ASDIR PRN IV Heparin Sodium (Porcine) (HEPARIN SODIUM) 3,000 UNIT ASDIR PRN DIALYSIS Lidocaine HCl (LIDOCAINE HCL/PF) 0.5 ML ASDIR DC N I-DERMAL (CKD) Mannitol (MANNITOL 25% 12.5GM/50ML) 12.5 GM ASDI R PRN IV Sodium Chloride (SODIUM CHLORIDE 0.9%) 2,000 ML ASDIR PRN IV Sodium Chloride (SODIUM CHLORIDE) 5 ML ASDIR PRN IV Sodium Chloride (SODIUM CHLORIDE) 10 ML ASDIR DC N IV Sodium Chloride (SODIUM CHLORIDE 0.9%) 250 ML DIR PRN IV Aspirin (ASPIRIN) 81 MG C BK PO Atorvastatin Calcium (LIPITOR) 40 MG 2100 PO Insulin Human Lispro (HUMALOG) 0 AC HS SUBQ Dextrose/Water (DEXTROSE 10% IN WATER) 125 ML DIR PRN IV (CKD) Dextrose/Water (DEXTROSE 10% IN WATER) 250 ML DIR PRN IV (CKD) Glucagon (GLUCAGON) 1 MG ASDIR PRN IM Melatonin (Melatonin) 3 MG BEDTIME PRN PRN PO Acetaminophen (TYLENOL) 650 MG Q4H PRN PRN PO Heparin Sodium (HEPARIN 5000 UNITS/ML) 5,000 UNI T ASDIR PRN IV Nitroglycerin (NITROSTAT) 0.4 MG Q5M PRN PRN SL Ondansetron HCl (ZOFRAN) 4 MG Q6H PRN PRN IV Dietitian Nutrition assessment The data set between the solid lines has been im ported from the dietitian's assessment. BMI Calculated: 39.6 Nutrition related diagnosis: Nutrition diagnosis details: Nutrition problem: Nutrition etiology: Nutrition signs and symptoms: Nutrition prescription: Dietitian name: Assessment completed: Physical Exam General appearance: alert, awake Skin: Multiple PT ulcers abrasions on B hands, B feet, L>R, w erythema 0ver L dorsum foot L forefoot. Ulcers on dorsum toes, L >R, w erythema @ forefoot, piunched-out appearance suggestive of arterial u lcers. LLE warm, RLE cold to touch. Results Findings/Data: Laboratory Tests: 06/28 06/28 06/28 06/28 1120 0908 0535 0535 Chemistry Sodium (134 - 147 mEq/L) 138 136 Potassium (3.4 - 5.0 mEq/L) 4.3 4.2 Chloride (100 - 108 mEq/L) 101 100 Carbon Dioxide (21 - 33 mEq/l) 25 22 Anion Gap (0 - 20) 17 18 BUN (7 - 18 mg/dL) 25 H 22 H Creatinine (0.6 - 1.3 mg/dL) 3.9 H 3.9 H Glomerular Filtr Rate (80 - 90) 12.1 L 12.1 L Glucose (70 - 110 mg/dL) 165 H 163 H POC Glucose (70 - 110 MG/DL) 112 H 167 H Calcium (8.0 - 10.5 mg/dL) 9.1 9.3 Hematology WBC (4.5 - 11.0 x10 3/uL) 10.8 RBC (3.54 - 5.02 x10 6/uL) 2.89 L Hgb (11.0 - 15.0 g/dL) 8.9 L Hct (33.0 - 45.0 %) 30.0 L MCV (81.0 - 99.0 fL) 103.8 H MCH (27.0 - 33.0 pg) 30.8 MCHC (33.0 - 37.0 g/dL) 29.7 L RDW (11.5 - 14.5 %) 15.6 H Plt Count (150 - 400 x10 3/uL) 149 L MPV (7.0 - 9.0 fL) 9.7 H Neut % (Auto) (56.0 - 77.0 %) 90.4 H Lymph % (Auto) (14.0 - 32.0 %) 2.7 L Kerr % (Auto) (4.8 - 9.0 %) 4.9 Eos % (Auto) (0.3 - 3.7 %) 1.4 Baso % (Auto) (0.0 - 2.0 %) 0.1 Neut # (Auto) (2.0 - 7.6 x10 3/uL) 9.74 H Lymph # (Auto) (1.0 - 3.8 x10 3/uL) 0.29 L Kerr # (Auto) (0.1 - 0.8 x10 3/uL) 0.53 Eos # (Auto) (0.0 - 0.2 x10 3/uL) 0.15 Baso # (Auto) (0.0 - 0.2 x10 3/uL) 0.01 Abs Immat Gran (auto) (0.00 - 0.03 0.05 H x10 3/uL) Add Manual Diff NO Immature Gran % (0.0 - 2.0 %) 0.5 Nucleated RBC % (0 - 0 %) 0.0 Nucleated RBCs # (Man) (0.0 - 0.1 x10 3/uL) 0.0 0 06/27 2052 Chemistry POC Glucose (70 - 110 MG/DL) 99 Diagnosis, Assessment Plan Free Text A P: Multiple ulcers, B feet, B hands , sp fall, w ar terial ulcers, B feet - Bactroban BID to all ulcers, leave open to air. Xeroform to LLE foot ulcers Wound cx- rare Enterococcus ; XR of L foot - no acute changes, mild degenerative changes. Severe PVD, BLE - CAD- tx per cardiology DM ESRD on HD [ x] Optimize Nutrition and Glycemic Control [ x] Pressure relieving inte rventions (Low Air Mattress, Prevalon boot, Turn q2h ) [ x] Nursing to implement impaired skin integrit y care plan as per skin care protocol Coordinattion of care D/W [ ] Other MD's [x ] Alex peace [ ] Family [ x ] Nursing [ ] Case Management Electronically Signed by Sybil Byers MD on at 1715 RPT #:[id number] END OF REPORT 2022-06-28 14:04:00-00:00 [facility] Cardiology Progress Note REPORT#:[id number] REPORT STATUS: Signed DATE:06/28/22 TIME: 1404 PATIENT: MESERET MOTTA UNIT #: [id number] ROOM/BED: [place] [id number] : 56 AGE: 67 SEX: F ATTEND: Adonis Gaytan MD ADM AUTHOR: Kristina Shah [employer]ER * ALL edits or amendments must be made on the el Tunespeak/computer document * Subjective Patient reports: No: complaints. Objective General VS/I O: 24 hour I O ending at 0700: 06/28 0700 06/27 1900 Intake Total 1620.00 Output Total 3100 Balance -1480.00 Intake, IV 920.00 Intake, Oral 700 Number 0 Bowel Movements Number Voids 2 Output, 3100 Hemodialysis Output, Stool 0 Vital Signs: Date Time Temp Pulse Resp B/P B/P Pulse O2 O2 F low FiO2 Mean Ox Delivery Rate 06/28 1121 36.5 108 16 177/99 125.4 100 Nasal 7 cannula 06/28 0757 36.5 85 16 129/70 89.6 100 Nasal 3 cannula 06/28 0500 36.4 81 16 123/72 88.8 100 06/28 0028 36.5 79 18 120/72 87.9 100 06/27 2108 36.6 79 16 140/73 100 Nasal 2 cannula 06/27 2039 36.5 71 18 114/67 0.0 95 06/27 2000 Nasal 4 cannula 06/27 1754 36.4 69 21 119/71 99 Nasal 2 cannula 06/27 1631 36.3 71 16 125/67 86.6 99 Nasal 2 cannula 06/27 1522 Nasal 2 cannula PATIENT WEIGHT: Weight (lb): 245 Weight (oz): 9.52 Weight (kg): 111.13 Medications: Active Meds + DC'd Last 24 Hrs Albuterol/Ipratropium (DUONEB) 3 ML RTQ4H PRN DC N NEB Ticagrelor (BRILINTA) 90 MG Q12HR PO Ampicillin Sodium/Sulbactam Sodium (UNASYN 3GM) 3 GM 2100 IV Sodium Chloride (SODIUM CHLORIDE 0.9% 100 ML) 1 00 ML Sodium Chloride (SODIUM CHLORIDE 0.9%) 1,000 ML .[id number] ONE IV (DC) Hydrocodone Bitart/Acetaminophen (NORCO 5/325) 1 TAB Q6H PRN PRN PO Hydrocodone Bitart/Acetaminophen (NORCO 10/325) 1 TAB Q6H PRN PRN PO Atropine Sulfate (ATROPINE SULFATE 0.1MG/ML SYR) 0.5 MG ASDIR PRN IV Sodium Chloride (SODIUM CHLORIDE 0.9%) 1,000 ML .[id number] ONE IV (DC) Sodium Chloride (SODIUM CHLORIDE 0.9%) 500 ML DIR PRN IV Ticagrelor (BRILINTA) 0 .STK-MED ONE .ROUTE (DC) Fentanyl Citrate (SUBLIMAZE) 0 .STK-MED ONE .ROU TE (DC) Midazolam HCl (VERSED) 0 .STK-MED ONE .ROUTE (DC ) Ampicillin Sodium/Sulbactam Sodium (UNASYN 3GM) 3 GM 1800 IV (DC) Sodium Chloride (SODIUM CHLORIDE 0.9% 100 ML) 100 ML Atropine Sulfate (ATROPINE SULFATE 0.1MG/ML SYR) 0.5 MG ASDIR PRN IV (DC ) Sodium Chloride (SODIUM CHLORIDE 0.9%) 500 ML DIR PRN IV (DC) Sevelamer Carbonate (RENVELA) 3,200 MG C MEALS P O Epoetin Vanesa-epbx (RETACRIT) 6,000 UNIT TuThSa@2 100 SUBQ Clopidogrel Bisulfate (Plavix) 75 MG DAILY PO (D C) Mupirocin (BACTROBAN 2% 22 GM OINTMENT) 1 APPLIC BID TOPICAL Calcitriol (RocaltroL) 0.5 MCG DAILY PO Midodrine (PROAMATINE) 5 MG 0900,1300,1700 PO Levothyroxine Sodium (LEVOTHYROXINE SODIUM) 150 MCG DAILY 0600 PO Buspirone HCl (BUSPAR) 5 MG BID PO Metoprolol Tartrate (LOPRESSOR) 12.5 MG Q12HR PO Pantoprazole (PROTONIX) 40 MG 0600,1800 PO Midodrine (PROAMATINE) 10 MG DIALYSIS-DOSE BEFOR E PO (CKD) Albumin Human (ALBUMINAR-25%) 12.5 GM ASDIR PRN IV Heparin Sodium (Porcine) (HEPARIN SODIUM) 3,000 UNIT ASDIR PRN DIALYSIS Lidocaine HCl (LIDOCAINE HCL/PF) 0.5 ML ASDIR DC N I-DERMAL (CKD) Mannitol (MANNITOL 25% 12.5GM/50ML) 12.5 GM ASDI R PRN IV Sodium Chloride (SODIUM CHLORIDE 0.9%) 2,000 ML ASDIR PRN IV Sodium Chloride (SODIUM CHLORIDE) 5 ML ASDIR PRN IV Sodium Chloride (SODIUM CHLORIDE) 10 ML ASDIR DC N IV Sodium Chloride (SODIUM CHLORIDE 0.9%) 250 ML DIR PRN IV Aspirin (ASPIRIN) 81 MG C BK PO Atorvastatin Calcium (LIPITOR) 40 MG 2100 PO Insulin Human Lispro (HUMALOG) 0 AC HS SUBQ Dextrose/Water (DEXTROSE 10% IN WATER) 125 ML DIR PRN IV (CKD) Dextrose/Water (DEXTROSE 10% IN WATER) 250 ML DIR PRN IV (CKD) Glucagon (GLUCAGON) 1 MG ASDIR PRN IM Melatonin (Melatonin) 3 MG BEDTIME PRN PRN PO Acetaminophen (TYLENOL) 650 MG Q4H PRN PRN PO Heparin Sodium (HEPARIN 5000 UNITS/ML) 5,000 UNI T ASDIR PRN IV Nitroglycerin (NITROSTAT) 0.4 MG Q5M PRN PRN SL Ondansetron HCl (ZOFRAN) 4 MG Q6H PRN PRN IV Physical Exam General appearance: chronically ill appearing, a lert, awake, oriented Neck: non-tender, no JVD Cardiovascular: CV assessment: regular rate and rhythm Respiratory: decreased breath sounds, on oxygen, no distress Abdomen: non-tender, obese Genitourinary: no flank pain, no urinary cathete r Lower extremity: LE assessment: edema, abnormal pedal pulse Musculoskeletal: normal inspection Neuro/SURGICAL SPECIALIST: alert, oriented X 3, normal speech Skin: scabs lower extremities Ulcer: Type/cause: diabetic, arterial Location: foot (bilateral toes) Psychiatry: normal affect, normal mood Results Findings/Data: Laboratory Tests 06/28 06/28 06/28 06/28 06/27 1120 0908 0535 0535 2052 Chemistry Sodium (134 - 147 mEq/L) 138 136 Potassium (3.4 - 5.0 mEq/L) 4.3 4.2 Chloride (100 - 108 mEq/L) 101 100 Carbon Dioxide (21 - 33 mEq/l) 25 22 Anion Gap (0 - 20) 17 18 BUN (7 - 18 mg/dL) 25 H 22 H Creatinine (0.6 - 1.3 mg/dL) 3.9 H 3.9 H Glomerular Filtr Rate (80 - 90) 12.1 L 12.1 L Glucose (70 - 110 mg/dL) 165 H 163 H POC Glucose (70 - 110 MG/DL) 112 H 167 H 99 Calcium (8.0 - 10.5 mg/dL) 9.1 9.3 06/27 06/27 1628 1532 Chemistry POC Glucose (70 - 110 MG/DL) 147 H 154 H Laboratory Tests 06/27 1429 Coagulation Activated Coag Time (74 - 137 SEC) 281 H Laboratory Tests 06/28 0535 Hematology WBC (4.5 - 11.0 x10 3/uL) 10.8 RBC (3.54 - 5.02 x10 6/uL) 2.89 L Hgb (11.0 - 15.0 g/dL) 8.9 L Hct (33.0 - 45.0 %) 30.0 L MCV (81.0 - 99.0 fL) 103.8 H MCH (27.0 - 33.0 pg) 30.8 MCHC (33.0 - 37.0 g/dL) 29.7 L RDW (11.5 - 14.5 %) 15.6 H Plt Count (150 - 400 x10 3/uL) 149 L MPV (7.0 - 9.0 fL) 9.7 H Neut % (Auto) (56.0 - 77.0 %) 90.4 H Lymph % (Auto) (14.0 - 32.0 %) 2.7 L Kerr % (Auto) (4.8 - 9.0 %) 4.9 Eos % (Auto) (0.3 - 3.7 %) 1.4 Baso % (Auto) (0.0 - 2.0 %) 0.1 Neut # (Auto) (2.0 - 7.6 x10 3/uL) 9.74 H Lymph # (Auto) (1.0 - 3.8 x10 3/uL) 0.29 L Kerr # (Auto) (0.1 - 0.8 x10 3/uL) 0.53 Eos # (Auto) (0.0 - 0.2 x10 3/uL) 0.15 Baso # (Auto) (0.0 - 0.2 x10 3/uL) 0.01 Abs Immat Gran (auto) (0.00 - 0.03 x10 3/uL) 0 .05 H Add Manual Diff NO Immature Gran % (0.0 - 2.0 %) 0.5 Nucleated RBC % (0 - 0 %) 0.0 Nucleated RBCs # (Man) (0.0 - 0.1 x10 3/uL) 0.0 0 Results: labs reviewed, vital signs stable, rhyt hm personally rev'd Diagnosis, Assessment Plan Consultants: cardiology, cardiovascular surgery, nephrology, wound care Plan discussed with: patient Free Text DxA P Notes Free Text DxA P Notes: 67 YO female with PMHx of HTN, DM, CHF, ESRD on HD who initially presented at [facility] with SOB and fatigue. Sh regan was treated for NSTEMI and acute CHF exacerbation. 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 She is transferred her for CABG evaluation but deemed too high risk for CABG with STS risk score of 17%. 1. NSTEMI/Multivessel CAD 06/27/22: s/p PCI to LCx wit h 2.25 x 20 mm and post dilated with 2.5 NC balloon continue ASA, Brilinta, BB, and statin need staged PCI to mid and proximal LAD in 1-2 w eeks 2. Acute on chronic Diastolic CHF volume management per nephrology echo from OSH LVEF 50% 3. ESRD on HD per nephrology 4. Diabetes mellitus per admitting team 5. Hypertension -> hypotension BP soft but holding on midodrine continue low-dose beta-susan for CAD 6. Toe ulcers/severe PAD 06/26/21: s/p peripheral angiogram and MORPHOLOGIST to th e anterior tibial artery ORE ROASTER of right anterior/posterior tibial artery, n eed staged intervention on a later date at 1416 Electronically Signed by Herson Tang MD on at 1633 RPT #:[id number] END OF REPORT 2022-06-28 12:50:00-00:00 [facility] ([facility]) Pulmonary Consultation Note REPORT#:[id number] REPORT STATUS: Signed DATE:06/28/22 TIME: 1250 PATIENT: MESERET MOTTA UNIT #: [id number] ROOM/BED: [place] [id number] : 56 AGE: 67 SEX: F ATTEND: Skye Johnson ADM AUTHOR: Ana Bobo * ALL edits or amendments must be made on the Summay/computer document * History of Present Illness HPI Requesting clinician: Dr. Johnson Reason for consult: SOB Chief complaint: SOB PCP: PCP: No Primary or Family Physician HPI: 67 years old female with history of end-stage re nal disease on hemodialysis Sunday and Sunday for the past 25 ye ars. History of diabetes mellitus, hypertension, peripheral vascular dise ase. Presented hospital with chest pain shortness of mando th, had positive troponin. Deemed too high risk for surgical revascularization. Underwent PCI with s tenting yesterday. Echo with normal EF. CT chest with small bilateral effusio ns, diffuse groundglass opacities consistent with pulm edema, sm all pericardial effusion. Currently on nasal cannula O2, she is short of breath with mi nimal exertion, denies cough, denies chest pain, denies fever or chills. Remot e smoking history quit more than 37 years ago. No home oxygen use. No CPAP u se. PFT showed restrictive impairment. History - Adult longitudinal Past medical history: Reports: Atrial fibrillation (self diagnosis), Diabetes mellitus, Hypertension, Kidney disease/stones, Dyslipidemia (esrd). Additional medical history: ESRD on dialysis Past surgical history: Reports: Cholecystectomy, . Additional surgical history: Fistula X 3 Multiple Diaslysis subclavian catheter placemne ts. back and neck urgery Additional family history: Atrial fibrillation, PVD Alcohol use: Denies EtOH use Drug use: Denies recreational drugs Smoking status for patients 13 years old or olde r: Former Smoker Medications: Home Medications: Medication Dose/Rte/Freq Days Qty Entered Last Max Daily Dose Reviewed LISINOPRIL (ZESTRIL) #90 - SIG Obtained 2 06/21/22 From Strength: 5 MG TAB Ava 1951 2001 LEVOTHYROXINE #90 - SIG Obtained 06/21/2206/21 From (SYNTHROID) Ava 2002 2004 Strength: 150 MCG TAB busPIRone (BUSPIRONE) 5 MG PO ONCE 06/21/22 Strength: 5 MG TAB 2003 2004 FAMOTIDINE (PEPCID) 40 MG PO DAILY 06/21/22 Strength: 40 MG TAB 2003 2004 amLODIPine (NORVASC) 10 MG PO DAILY 06/21/22 Strength: 10 MG TAB 2004 2004 METOPROLOL SUCC XL 50 MG PO DAILY 06/21/2206/08 (TOPROL XL) 2004 2004 Strength: [address] 40 MG PO BID 06/21/22 06/21/22 (PROTONIX) 2004 2004 Strength: [address] TAB.[address] MUPIROCIN 1 APPLIC TOPICAL BID 06/22/22 2 (BACTROBAN 2%) 1113 1118 Strength: 2 % OINTMENT LORATADINE (CLARITIN) 10 MG PO DAILY 06/23/22 1 08/24/21 Strength: 10 MG TAB 0822 0823 Current Hospital Medications: Ahfs Category Unknown Sig/Enedina Start time Last Medication Dose Route Stop Time Status Admin Melatonin 3 MG BEDTIME PRN PRN 06/21 1900 AC (Melatonin) PO 07/21 1859 0102 Anti-Infective Agents Sig/Enedina Start time Last Medication Dose Route Stop Time Status Admin Ampicillin Sodium/ 3 GM 2100 06/27 2100 AC 06/09 0 Sulbactam Sodium IV 07/04 2059 2340 (UNASYN 3GM) Sodium Chloride 100 ML (SODIUM CHLORIDE 0.9% 100 ML) Ampicillin Sodium/ 3 GM 1800 06/26 1800 DC Sulbactam Sodium IV 07/03 1759 (UNASYN 3GM) Sodium Chloride 100 ML (SODIUM CHLORIDE 0.9% 100 ML) Autonomic Drugs Sig/Enedina Start time Last Medication Dose Route Stop Time Status Admin Albuterol/Ipratropium 3 ML RTQ4H PRN PRN 06/28 1215 UNV (DUONEB) NEB 07/28 1214 Atropine Sulfate 0.5 MG ASDIR PRN 06/27 1600 AC (ATROPINE SULFATE IV 07/27 1559 0.1MG/ML SYR) Atropine Sulfate 0.5 MG ASDIR PRN 06/26 1800 DC (ATROPINE SULFATE IV 06/27 1750 0.1MG/ML SYR) Midodrine 5 MG 0900,1300,1700 06/23 0900 AC (PROAMATINE) PO 07/23 0859 1223 Midodrine 10 MG DIALYSIS-DOSE BEFORE 06/22 1545 CKD 06/26 (PROAMATINE) PO 07/22 1544 1856 Blood Derivatives Sig/Enedina Start time Last Medication Dose Route Stop Time Status Admin Albumin Human 12.5 GM ASDIR PRN 06/22 1530 AC 1 08/28 (ALBUMINAR-25%) IV 07/23 1529 1909 Blood Formation,Coagulation Sig/Enedina Start time Last Medication Dose Route Stop Time Status Admin Ticagrelor 90 MG Q12HR 06/28 1115 AC 06/28 (BRILINTA) PO 07/28 1114 1223 Ticagrelor 0 .STK-MED ONE 06/27 1456 DC (BRILINTA) .ROUTE Epoetin Vanesa-epbx 6,000 UNIT TuThSa@2100 12/17 2100 AC 06/27 (RETACRIT) SUBQ 07/24 2058 2143 Clopidogrel Bisulfate 75 MG DAILY 06/23 1800 DC 06/28 (Plavix) PO 07/23 175 0910 Heparin Sodium 3,000 UNIT ASDIR PRN 06/22 1530 AC 06/27 (Porcine) DIALYSIS 07/22 1529 1833 (HEPARIN SODIUM) Heparin Sodium 5,000 UNIT ASDIR PRN 06/21 1730 AC 06/22 (HEPARIN 5000 UNITS/ IV 07/21 1729 1449 ML) Cardiovascular Drugs Sig/Enedina Start time Last Medication Dose Route Stop Time Status Admin Metoprolol Tartrate 12.5 MG Q12HR 06/22 2100 AC 06/28 (LOPRESSOR) PO 07/22 2058 0910 Lidocaine HCl 0.5 ML ASDIR PRN 06/22 1530 CKD (LIDOCAINE HCL/PF) I-DERMAL 07/23 1529 Atorvastatin Calcium 40 MG 2100 06/21 2100 AC 1 08/28 (LIPITOR) PO 07/21 2058 2144 Nitroglycerin 0.4 MG Q5M PRN PRN 06/21 1730 AC (NITROSTAT) SL 07/21 1729 Central Nervous System Agents Sig/Enedina Start time Last Medication Dose Route Stop Time Status Admin Hydrocodone Bitart/ 1 TAB Q6H PRN PRN 06/27 164 5 AC Acetaminophen PO 07/02 1644 (NORCO 5/325) Hydrocodone Bitart/ 1 TAB Q6H PRN PRN 06/27 164 5 AC 06/28 Acetaminophen PO 07/02 1644 0312 (NORCO 10/325) Fentanyl Citrate 0 .STK-MED ONE 06/27 1406 DC 1 08/28 (SUBLIMAZE) .ROUTE 1418 Midazolam HCl 0 .STK-MED ONE 06/27 1406 DC 06/09 0 (VERSED) .ROUTE 1418 Acetaminophen 0 .STK-MED ONE 06/27 1257 DC (TYLENOL) .ROUTE Buspirone HCl 5 MG BID 06/22 2100 AC 06/28 (BUSPAR) PO 07/22 2058 0911 Aspirin 81 MG C BK 06/22 0800 AC 06/28 (ASPIRIN) PO 07/22 0759 0910 Acetaminophen 650 MG Q4H PRN PRN 06/21 1730 AC 06/27 (TYLENOL) PO 07/21 1729 1301 Electrolytic, Caloric, And Bailey Sig/Enedina Start time Last Medication Dose Route Stop Time Status Admin Sodium Chloride 1,000 ML .[id number] ONE 06/27 180 0 DC (SODIUM CHLORIDE IV 06/28 0719 0.9%) Sodium Chloride 1,000 ML .[id number] ONE 06/27 160 0 DC 06/27 (SODIUM CHLORIDE IV 06/28 0519 1701 0.9%) Sodium Chloride 500 ML ASDIR PRN 06/27 1600 AC (SODIUM CHLORIDE IV 07/27 1559 0.9%) Sodium Chloride 500 ML ASDIR PRN 06/26 1800 DC (SODIUM CHLORIDE IV 06/27 1750 0.9%) Sevelamer Carbonate 3,200 MG C MEALS 06/26 0800 AC 06/28 (RENVELA) PO 07/26 0759 1223 Mannitol 12.5 GM ASDIR PRN 06/22 1530 AC (MANNITOL 25% 12.5GM/ IV 07/23 1529 50ML) Sodium Chloride 2,000 ML ASDIR PRN 06/22 1530 A C 06/27 (SODIUM CHLORIDE IV 07/23 1529 1825 0.9%) Sodium Chloride 5 ML ASDIR PRN 06/22 1530 AC (SODIUM CHLORIDE) IV 07/22 1529 Sodium Chloride 10 ML ASDIR PRN 06/22 1530 AC 06/27 (SODIUM CHLORIDE) IV 07/22 1529 1839 Sodium Chloride 250 ML ASDIR PRN 06/22 1530 AC (SODIUM CHLORIDE IV 07/22 1529 0.9%) Dextrose/Water 125 ML ASDIR PRN 06/21 1900 CKD (DEXTROSE 10% IN IV 07/21 185 WATER) Dextrose/Water 250 ML ASDIR PRN 06/21 1900 CKD (DEXTROSE 10% IN IV 07/21 1859 WATER) Gastrointestinal Drugs Sig/Enedina Start time Last Medication Dose Route Stop Time Status Admin Pantoprazole 40 MG 0600,1800 06/22 1800 AC 06/09 1 (PROTONIX) PO 07/22 1759 0550 Ondansetron HCl 4 MG Q6H PRN PRN 06/21 1730 AC 06/24 (ZOFRAN) IV 07/21 1729 2213 Hormones And Synthetic Substit Sig/Enedina Start time Last Medication Dose Route Stop Time Status Admin Levothyroxine Sodium 150 MCG DAILY 0600 06/23 0 600 AC 06/28 (LEVOTHYROXINE PO 07/23 0559 0551 SODIUM) Insulin Human Lispro 0 AC HS 06/21 2100 AC 06/09 1 (HUMALOG) SUBQ 07/21 Glucagon 1 MG ASDIR PRN 06/21 1900 AC (GLUCAGON) IM 07/21 1859 Skin And Mucous Membrane Agent Sig/Enedina Start time Last Medication Dose Route Stop Time Status Admin Mupirocin 1 APPLIC BID 06/23 1800 AC 06/28 (BACTROBAN 2% 22 GM TOPICAL 06/28 175 09 OINTMENT) Vitamins Sig/Enedina Start time Last Medication Dose Route Stop Time Status Admin Calcitriol 0.5 MCG DAILY 06/23 0900 AC 06/28 (RocaltroL) PO 07/23 0859 0910 Allergies: Coded Allergies: codeine (06/06/01) DRUG INGREDIENT Enzo CODEINE Uncoded Allergies: CODEINE (HALLUCINATION 01/08/09) No Known Contrast Allergies (01/08/09) No Known Food Allergies (01/08/09) No Known Other Allergies (01/08/09) Ambulatory status: Wheelchair Review of Systems All systems rev neg: except as marked Objective Physical Exam Vitals: Last Documented: Result Date Time Pulse Ox 100 06/28 112 B/P 177/99 06/28 112 B/P Mean 125.4 06/28 112 O2 Delivery Nasal cannula 06/28 1121 O2 Flow Rate 7 06/28 112 Temp 36.5 06/28 112 Pulse 108 06/28 1121 Resp 16 06/28 112 General appearance: alert, awake, oriented, no a cute distress Head/eyes: atraumatic, normocephalic, PERRL Neck: supple/no meningismus, no bruit/NL carotid s, no lymphadenopathy Cardiovascular: normal S1/S2, no rub, no gallop Respiratory/chest: decreased breath sounds, symmetric expansion, no distress, no tenderness Abdomen: soft, normal bowel sounds, no distentio n, no guarding Extremities: edema, no clubbing Neuro/SURGICAL SPECIALIST: alert, oriented X 3, no motor deficit s Skin: dry, normal color Psychiatry: normal affect, no hallucinations Results Findings/Data: Laboratory Tests 06/28/22 0535: [Embedded Image Not Available] 06/28/22 0535: [Embedded Image Not Available] Laboratory Tests 06/28 06/28 06/28 06/28 06/27 1120 0908 0535 0535 2052 Chemistry Sodium (134 - 147 mEq/L) 138 136 Potassium (3.4 - 5.0 mEq/L) 4.3 4.2 Chloride (100 - 108 mEq/L) 101 100 Carbon Dioxide (21 - 33 mEq/l) 25 22 Anion Gap (0 - 20) 17 18 BUN (7 - 18 mg/dL) 25 H 22 H Creatinine (0.6 - 1.3 mg/dL) 3.9 H 3.9 H Glomerular Filtr Rate (80 - 90) 12.1 L 12.1 L Glucose (70 - 110 mg/dL) 165 H 163 H POC Glucose (70 - 110 MG/DL) 112 H 167 H 99 Calcium (8.0 - 10.5 mg/dL) 9.1 9.3 06/27 06/27 1628 1532 Chemistry POC Glucose (70 - 110 MG/DL) 147 H 154 H Laboratory Tests 06/27 1429 Coagulation Activated Coag Time (74 - 137 SEC) 281 H Laboratory Tests 06/28 0535 Hematology WBC (4.5 - 11.0 x10 3/uL) 10.8 RBC (3.54 - 5.02 x10 6/uL) 2.89 L Hgb (11.0 - 15.0 g/dL) 8.9 L Hct (33.0 - 45.0 %) 30.0 L MCV (81.0 - 99.0 fL) 103.8 H MCH (27.0 - 33.0 pg) 30.8 MCHC (33.0 - 37.0 g/dL) 29.7 L RDW (11.5 - 14.5 %) 15.6 H Plt Count (150 - 400 x10 3/uL) 149 L MPV (7.0 - 9.0 fL) 9.7 H Neut % (Auto) (56.0 - 77.0 %) 90.4 H Lymph % (Auto) (14.0 - 32.0 %) 2.7 L Kerr % (Auto) (4.8 - 9.0 %) 4.9 Eos % (Auto) (0.3 - 3.7 %) 1.4 Baso % (Auto) (0.0 - 2.0 %) 0.1 Neut # (Auto) (2.0 - 7.6 x10 3/uL) 9.74 H Lymph # (Auto) (1.0 - 3.8 x10 3/uL) 0.29 L Kerr # (Auto) (0.1 - 0.8 x10 3/uL) 0.53 Eos # (Auto) (0.0 - 0.2 x10 3/uL) 0.15 Baso # (Auto) (0.0 - 0.2 x10 3/uL) 0.01 Abs Immat Gran (auto) (0.00 - 0.03 x10 3/uL) 0. 05 H Add Manual Diff NO Immature Gran % (0.0 - 2.0 %) 0.5 Nucleated RBC % (0 - 0 %) 0.0 Nucleated RBCs # (Man) (0.0 - 0.1 x10 3/uL) 0.0 0 Diagnosis, Assessment Plan Free Text DxA P Notes Free Text DxA P Notes: 1- Acute hypoxemic respiratory failure 2- Acute pulm edema 3- Cardiology disease status post PCI 4- Chronic diastolic heart failure HFpEF 5- End-stage renal disease on hemodialysis 6- Hypertension/DM2 7- Peripheral vascular disease/ischemic ulcer 8- Obesity ? Underlying JAMILAH - Continue nasal cannula O2, titrate to keep sat s above 94% - Hemodialysis with fluid removal per nephrology service - DuoNeb every 4 hours as needed - Continue to optimize heart failure management, blood pressure control - Wound care - Outpatient sleep study - DVT prophylaxis Thank you very much Dr. Johnson for giving me the o pportunity to participate in this patient care, I will follow the patient wit h you. at 1301 RPT #:[id number] END OF REPORT 2022-06-28 10:24:00-00:00 [facility] ([facility]) Adult General Consultation REPORT#:[id number] REPORT STATUS: Signed DATE:06/28/22 TIME: 1023 PATIENT: MESERET MOTTA UNIT #: [id number] ROOM/BED: [address] : [address] AGE: 67 SEX: F ATTEND: Skye Johnson ADM AUTHOR: Vega,Lisa A INDUSTRIAL RELATIONS DIRECTOR * ALL edits or amendments must be made on the el [employer]/computer document * History of Present Illness Requesting Clinician: IM Reason for consult: PMR eval and support Chief complaint: weakness and debility PCP: PCP: No Primary or Family Physician HPI: 67 YO female with PMHx of HTN, DM, CHF, ESRD on HD who initially presented at [facility] with SOB and fatigue. Sh regan was treated for NSTEMI and acute CHF exacerbation. 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 She is transferred her for CABG nataly luation. Echo showed LVEF 50%. CVS was consulted for possible CABG. Case presente d at complex case conference, Recommend attempt PCI. LE arterial doppler - severe PAD Pt is s/p MORPHOLOGIST a nd atherectomy with CSI followed by MORPHOLOGIST with TAVR balloon on lef t anterior and posterior tibial artery ORE ROASTER of right anterior/posterior tibial artery- w ill need staged intervention. Wound care is following for management of multip le bowel ulcers on bilateral feet and hands. Wound cultures with rare Enteroc occus growth. We were consulted for PMR evaluation and support History - Adult longitudinal Past medical history: Reports: Atrial fibrillation (self diagnosis), Diabetes mellitus, Hypertension, Kidney disease/stones, Dyslipidemia (esrd). Additional medical history: ESRD on dialysis Past surgical history: Reports: Cholecystectomy, . Additional surgical history: Fistula X 3 Multiple Diaslysis subclavian catheter placemne ts. back and neck urgery Additional family history: Atrial fibrillation, PVD Alcohol use: Denies EtOH use Drug use: Denies recreational drugs Smoking status for patients 13 years old or olde r: Former Smoker Medications: Home Medications: Medication Dose/Rte/Freq Days Qty Entered Last Max Daily Dose Reviewed LISINOPRIL (ZESTRIL) #90 - SIG Obtained 2 06/21/22 From Strength: 5 MG TAB Fir 1951 2001 LEVOTHYROXINE #90 - SIG Obtained 06/21/2206/21 From (SYNTHROID) Fir 2002 2004 Strength: 150 MCG TAB busPIRone (BUSPIRONE) 5 MG PO ONCE 06/21/22 Strength: 5 MG TAB 2003 2004 FAMOTIDINE (PEPCID) 40 MG PO DAILY 06/21/22 Strength: 40 MG TAB 2003 2004 amLODIPine (NORVASC) 10 MG PO DAILY 06/21/22 Strength: 10 MG TAB 2004 2004 METOPROLOL SUCC XL 50 MG PO DAILY 06/21/22 (TOPROL XL) 2004 2004 Strength: [address] 40 MG PO BID 06/21/22 06/21/22 (PROTONIX) 2004 2004 Strength: 40 MG TAB.DR MUPIROCIN 1 APPLIC TOPICAL BID 06/22/22 2 (BACTROBAN 2%) 1118 1118 Strength: 2 % OINTMENT LORATADINE (CLARITIN) 10 MG PO DAILY 06/23/22 1 08/24/21 Strength: 10 MG TAB 0822 0823 Current Hospital Medications: fs Category Unknown Sig/Enedina Start time Last Medication Dose Route Stop Time Status Admin Melatonin 3 MG BEDTIME PRN PRN 06/21 1900 AC (Melatonin) PO 07/21 1859 0102 Anti-Infective Agents Sig/Enedina Start time Last Medication Dose Route Stop Time Status Admin Ampicillin Sodium/ 3 GM 2100 06/27 2100 AC 06/09 0 Sulbactam Sodium IV 07/04 205 2340 (UNASYN 3GM) Sodium Chloride 100 ML (SODIUM CHLORIDE 0.9% 100 ML) Ampicillin Sodium/ 3 GM 1800 06/26 1800 DC Sulbactam Sodium IV 07/03 1759 (UNASYN 3GM) Sodium Chloride 100 ML (SODIUM CHLORIDE 0.9% 100 ML) Autonomic Drugs Sig/Enedina Start time Last Medication Dose Route Stop Time Status Admin Atropine Sulfate 0.5 MG ASDIR PRN 06/27 1600 AC (ATROPINE SULFATE IV 07/27 1559 0.1MG/ML SYR) Atropine Sulfate 0.5 MG ASDIR PRN 06/26 1800 DC (ATROPINE SULFATE IV 06/27 1750 0.1MG/ML SYR) Midodrine 5 MG 0900,1300,1700 06/23 0900 AC (PROAMATINE) PO 07/23 0859 0910 Midodrine 10 MG DIALYSIS-DOSE BEFORE 06/22 1545 CKD 06/26 (PROAMATINE) PO 07/22 1544 1856 Blood Derivatives Sig/Enedina Start time Last Medication Dose Route Stop Time Status Admin Albumin Human 12.5 GM ASDIR PRN 06/22 1530 AC 1 08/28 (ALBUMINAR-25%) IV 07/23 1529 1909 Blood Formation,Coagulation Sig/Enedina Start time Last Medication Dose Route Stop Time Status Admin Ticagrelor 0 .STK-MED ONE 06/27 1456 DC (BRILINTA) .ROUTE Epoetin Vanesa-epbx 6,000 UNIT TuThSa@2100 06/24 2100 AC 06/27 (RETACRIT) SUBQ 07/24 205 2143 Clopidogrel Bisulfate 75 MG DAILY 06/23 1800 AC 06/28 (Plavix) PO 07/23 1759 0910 Heparin Sodium 3,000 UNIT ASDIR PRN 06/22 1530 AC 06/27 (Porcine) DIALYSIS 07/22 1529 1833 (HEPARIN SODIUM) Heparin Sodium 5,000 UNIT ASDIR PRN 06/21 1730 AC 06/22 (HEPARIN 5000 UNITS/ IV 07/21 1729 1449 ML) Cardiovascular Drugs Sig/Enedina Start time Last Medication Dose Route Stop Time Status Admin Metoprolol Tartrate 12.5 MG Q12HR 06/22 2100 AC 06/28 (LOPRESSOR) PO 07/22 2058 0910 Lidocaine HCl 0.5 ML ASDIR PRN 06/22 1530 CKD (LIDOCAINE HCL/PF) I-DERMAL 07/23 1529 Atorvastatin Calcium 40 MG 06/21 AC 1 08/28 (LIPITOR) PO 07/21 2058 2144 Nitroglycerin 0.4 MG Q5M PRN PRN 06/21 1730 AC (NITROSTAT) SL 07/21 1729 Central Nervous System Agents Sig/Enedina Start time Last Medication Dose Route Stop Time Status Admin Hydrocodone Bitart/ 1 TAB Q6H PRN PRN 06/27 164 5 AC Acetaminophen PO 07/02 1644 (NORCO 5/325) Hydrocodone Bitart/ 1 TAB Q6H PRN PRN 06/27 164 5 AC 06/28 Acetaminophen PO 07/02 1644 0312 (NORCO 10/325) Fentanyl Citrate 0 .STK-MED ONE 06/27 1406 DC 1 08/28 (SUBLIMAZE) .ROUTE 1418 Midazolam HCl 0 .STK-MED ONE 06/27 1406 DC 06/09 0 (VERSED) .ROUTE 1418 Acetaminophen 0 .STK-MED ONE 06/27 1257 DC (TYLENOL) .ROUTE Buspirone HCl 5 MG BID 06/22 2100 AC 06/28 (BUSPAR) PO 07/22 2058 0911 Aspirin 81 MG C BK 06/22 0800 AC 06/28 (ASPIRIN) PO 07/22 0759 0910 Acetaminophen 650 MG Q4H PRN PRN 06/21 1730 AC 06/27 (TYLENOL) PO 07/21 1729 1301 Electrolytic, Caloric, And Bailey Sig/Enedina Start time Last Medication Dose Route Stop Time Status Admin Sodium Chloride 1,000 ML .[id number] ONE 06/27 180 0 DC (SODIUM CHLORIDE IV 06/28 0719 0.9%) Sodium Chloride 1,000 ML .[id number] ONE 06/27 160 0 DC 06/27 (SODIUM CHLORIDE IV 06/28 0519 1701 0.9%) Sodium Chloride 500 ML ASDIR PRN 06/27 1600 AC (SODIUM CHLORIDE IV 07/27 1559 0.9%) Sodium Chloride 500 ML ASDIR PRN 06/26 1800 DC (SODIUM CHLORIDE IV 06/27 1750 0.9%) Sevelamer Carbonate 3,200 MG C MEALS 06/26 0800 AC 06/28 (RENVELA) PO 07/26 0759 0910 Mannitol 12.5 GM ASDIR PRN 06/22 1530 AC (MANNITOL 25% 12.5GM/ IV 07/23 1529 50ML) Sodium Chloride 2,000 ML ASDIR PRN 06/22 1530 A C 06/27 (SODIUM CHLORIDE IV 07/23 1529 1825 0.9%) Sodium Chloride 5 ML ASDIR PRN 06/22 1530 AC (SODIUM CHLORIDE) IV 07/22 1529 Sodium Chloride 10 ML ASDIR PRN 06/22 1530 AC 1 08/28 (SODIUM CHLORIDE) IV 07/22 1529 1839 Sodium Chloride 250 ML ASDIR PRN 06/22 1530 AC (SODIUM CHLORIDE IV 07/22 1529 0.9%) Dextrose/Water 125 ML ASDIR PRN 06/21 1900 CKD (DEXTROSE 10% IN IV 07/21 1858 WATER) Dextrose/Water 250 ML ASDIR PRN 06/21 1900 CKD (DEXTROSE 10% IN IV 07/21 1858 WATER) Gastrointestinal Drugs Sig/Enedina Start time Last Medication Dose Route Stop Time Status Admin Pantoprazole 40 MG 0600,1800 06/22 1800 AC 06/09 1 (PROTONIX) PO 07/22 1759 0550 Ondansetron HCl 4 MG Q6H PRN PRN 06/21 1730 AC 06/24 (ZOFRAN) IV 07/21 1729 2213 Hormones And Synthetic Substit Sig/Enedina Start time Last Medication Dose Route Stop Time Status Admin Levothyroxine Sodium 150 MCG DAILY 0600 06/23 0 600 AC 06/28 (LEVOTHYROXINE PO 07/23 0559 0551 SODIUM) Insulin Human Lispro 0 AC HS 06/21 2100 AC 06/09 1 (HUMALOG) SUBQ 07/21 2058 0909 Glucagon 1 MG ASDIR PRN 06/21 1900 AC (GLUCAGON) IM 07/21 1859 Skin And Mucous Membrane Agent Sig/Enedina Start time Last Medication Dose Route Stop Time Status Admin Mupirocin 1 APPLIC BID 06/23 1800 AC 06/28 (BACTROBAN 2% 22 GM TOPICAL 06/28 175 0904 OINTMENT) Vitamins Sig/Enedina Start time Last Medication Dose Route Stop Time Status Admin Calcitriol 0.5 MCG DAILY 06/23 0900 AC 06/28 (RocaltroL) PO 07/23 0859 0910 Allergies: Coded Allergies: codeine (06/06/01) DRUG INGREDIENT Enzo CODEINE Uncoded Allergies: CODEINE (HALLUCINATION 01/08/09) No Known Contrast Allergies (01/08/09) No Known Food Allergies (01/08/09) No Known Other Allergies (01/08/09) Ambulatory status: Wheelchair Review of Systems Constitutional: fatigue, generalized weakness. Skin: other (wounds-multiple). Allergy/Immun: Denies: allergic reaction, anaphylaxis, hives, i tching, rhinorrhea, sneezing, other. Eyes: Denies: redness, discharge, visual loss/blurred, itching, diplopia, eye pain, photophobia, swelling, other. ENT: Denies: ear drainage, ear ringing, earache, hear ing loss, mouth pain, nasal congestion, nose bleeding, sinus problem, sore t hroat, throat pain, throat swelling, tongue pain, tongue swelling, toothach e, voice change, other. Respiratory: Denies: STEELE (dyspnea on exertion), hemoptysis, n on productive cough, parox nocturnal dyspnea, pleurisy, pleuritic pain, pneumonia, productive cough (sputum ), SOB, wheezing, other. Cardiovascular: STEELE (dyspnea on exertion). GI: Denies: abdominal pain, anorexia, constipation, diarrhea, dysphagia, GERD, hematemesis, hematochezia, h iatal hernia, melena, nausea, rectal pain, vomiting, other. : Denies: dysuria, flank pain, frequency, hematuri a, nocturia, pelvic pain, , previous pregnancies, urgency, urinary retention, vaginal bleeding, vaginal discharge, other. Musculoskeletal: Denies: arthritis, extremity pain, extremity swe lling, joint pain, joint swelling, lumbar pain, myalgias, neck pain, thor acic pain, other. Heme: Denies: adenopathy, bleeding, bruising, petechia e, other. Endocrine: Denies: cold intolerance, heat intolerance, poly dipsia, polyphagia, polyuria, weight gain, weight loss, other. Neuro: gait problem. Psych: Denies: agitation, anxiety, auditory hallucinati on, change in mental status, confusion, delusional, depre ssion, homicidal ideation, hostile, insomnia, stress , suicidal ideation, visual hallucination, other . Objective VS/I O: Last Documented: Result Date Time Pulse Ox 99 06/29 1937 B/P 104/65 06/29 1937 B/P Mean 77.9 06/29 1937 O2 Delivery Nasal cannula 06/29 1937 Temp 97.7 06/29 1937 Pulse 90 06/29 1937 Resp 16 06/29 1937 O2 Flow Rate 4 06/29 1600 FiO2 21 06/28 2342 24 hour I O ending at 0700: 06/29 0700 06/28 1900 Intake Total 400 Output Total 4000 Balance 400 -4000 Intake, Oral 400 Number Voids 2 Output, 4000 Hemodialysis PATIENT WEIGHT: Weight (lb): 245 Weight (oz): 9.52 Weight (kg): 111.13 General appearance: obese, alert, awake, oriente d Head/Eyes: atraumatic, clear cornea, EOMI, normo cephalic, normal conjunctiva/ sclera, normal eyelids/periorb., PERRLA ENT: normal dentition, normal ear left, normal e ar right, normal nose, normal pharynx, normal sinus Neck: full range of motion, non-tender, no bruit /NL carotids, no JVD, no lymphadenopathy, no masses or swelling, normal t hyroid, supple/no meningismus Cardiovascular: normal capillary refill, regular rate rhythm Respiratory: crackles (bases) Abdomen: soft, non-tender, normal abdomi nal aorta, no guarding, no rebound, no distention, no mass/organomegaly, no pulsatile m ass, no hernia Abdomen quadrants: LLQ normal bowel sounds, LUQ normal mihir l sounds, RLQ normal bowel sounds, RUQ normal bowel sounds Genitourinary: not indicated, deferred Extremities: edema (BLE), moves all, no clubbing , no cyanosis, no evidence of DVT Musculoskeletal: MMT BUE -4/5 BLE proximal -3/5 Distal +3/5 Neuro/SURGICAL SPECIALIST: alert, oriented X 3, CNII-XII grossly intact, NL cerebellar function, normal speech Skin: BLE feet with multi sores Ulcer: Type/cause: diabetic, arterial Location: foot (bilateral toes) Psychiatry: normal affect, n ormal judgment/insight, normal mood, not homicidal, not suicidal, no hallucinations Results Findings/Data: Laboratory Tests: 06/29 06/29 06/29 06/29 06/29 195 1536 1124 0756 0600 Chemistry Sodium (134 - 147 mEq/L) 137 Potassium (3.4 - 5.0 mEq/L) 4.3 Chloride (100 - 108 mEq/L) 102 Carbon Dioxide (21 - 33 mEq/l) 24 Anion Gap (0 - 20) 15 BUN (7 - 18 mg/dL) 28 H Creatinine (0.6 - 1.3 mg/dL) 4.8 H Glomerular Filtr Rate (80 - 90) 9.5 L Glucose (70 - 110 mg/dL) 197 H POC Glucose (70 - 110 MG/DL) 172 H 108 172 H 18 6 H Calcium (8.0 - 10.5 mg/dL) 9.3 Phosphorus (2.5 - 4.9 MG/DL) 5.5 H Magnesium (1.80 - 2.40 mg/dL) 2.32 Hematology WBC (4.5 - 11.0 x10 3/uL) 10.0 RBC (3.54 - 5.02 x10 6/uL) 2.96 L Hgb (11.0 - 15.0 g/dL) 9.0 L Hct (33.0 - 45.0 %) 30.7 L MCV (81.0 - 99.0 fL) 103.7 H MCH (27.0 - 33.0 pg) 30.4 MCHC (33.0 - 37.0 g/dL) 29.3 L RDW (11.5 - 14.5 %) 15.3 H Plt Count (150 - 400 x10 3/uL) 170 MPV (7.0 - 9.0 fL) 9.7 H Neut % (Auto) (56.0 - 77.0 %) 86.3 H Lymph % (Auto) (14.0 - 32.0 %) 3.8 L Kerr % (Auto) (4.8 - 9.0 %) 7.3 Eos % (Auto) (0.3 - 3.7 %) 2.2 Baso % (Auto) (0.0 - 2.0 %) 0.1 Neut # (Auto) (2.0 - 7.6 x10 3/uL) 8.61 H Lymph # (Auto) (1.0 - 3.8 x10 3/uL) 0.38 L Kerr # (Auto) (0.1 - 0.8 x10 3/uL) 0.73 Eos # (Auto) (0.0 - 0.2 x10 3/uL) 0.22 H Baso # (Auto) (0.0 - 0.2 x10 3/uL) 0.01 Abs Immat Gran (auto) (0.00 - 0.03 0.03 x10 3/uL) Add Manual Diff NO Immature Gran % (0.0 - 2.0 %) 0.3 Nucleated RBC % (0 - 0 %) 0.0 Nucleated RBCs # (Man) (0.0 - 0.1 0.00 x10 3/uL) Diagnosis, Assessment Plan Free Text DxA P Notes Free Text DxA P Notes: 67-year-old female with weakness and impaired mo bility 2/2 cardiac myopathy positive for NSTEMI Multivessel CAD, acute on ch ronic diastolic heart failure -End-stage renal disease on hemodialysis -Severe PVD-(s/p MORPHOLOGIST and ath erectomy with CSI followed by MORPHOLOGIST with TAVR balloon on left anterior and posterior tibial artery. CT O of right anterior/posterior tibial artery- will need staged intervention) -Uremic Neuropathy -Uremic Myopathy -Generalized weakness -Impaired mobility, gait, balance, ADLs, and end urance -Diabetes type 2 with hyperglycemia -Hypertension -Multiple wounds on feet and hands Plan: Continue supportive and preventative care Wound care team is following wound care manageme nt Continue PT/OT Out of bed to chair Work on ADLs, strength, bed mobility, transfers, gait DVT prophylaxis on SCD Strict fall and safety precautions Monitor p.o. intake and nutrition Strict decubitus precautions Monitor labs Patient has not been seen by therapy keiry allen since initial eval was on 06/23/2022 We we will reorder therapy updates Pt would benefit from a comprehensive rehab prog mitul in IPR addressing her impaired functional mobility, gait, balance and endurance impairments, while being closely monitored by P MR and medical teams. She is at high risk for acute HF issues, cardiac arrhythmia, re occlusion to B LE. Pt is agreeable and cable of the 3 hour therapy session required We thank you for the consult TT:64 mins: time spent obtai freda history, HPI, reviewing chart, meds, labs notes and assessing pt and discussing rehab poc. Answe red all quesions at 2226 RPT #:[id number] END OF REPORT 2022-06-28 08:41:00-00:00 [id number] [place] [address] PATIENT NAME: MESERET MOTTA ADMIT DATE: 06/22 ACCOUNT NO: [id number] ROOM NO: [id number] AGE: 67 REPORT TYPE: CARDIAC CATHETERIZATION REPORT SEX: F ADMITTING PHYSICIAN:Delmy Ashton MD ATTENDING PHYSICIAN:Adonis Gyatan MD PROCEDURE DATE: 06/27/2022 INDICATION FOR PROCEDURE: Chest pain, no n-STEMI. The patient was found to have severe LAD and left circumflex disease. The omaira ent was referred for coronary artery bypass. The patient was deemed high risk for bypass and is here for high-risk PCI. Risks and benefits explai joseluis to the patient. The patient agreed to proceed. PROCEDURES PERFORMED: 1. Selective coronary angiogram. 2. Stent to the mid left circumflex, Syn ergy 2.25 x 20 mm and postdilated with 2.5 x 12 noncompliant balloon. 3. Moderate sedation. 4. Perclose closure device to the left common fe moral artery. DESCRIPTION OF PROCEDURE: After informed consent was obtained, the patient was brought into the labeler. The patient was prepp ed and draped in sterile fashion. Left common femoral artery was accessed using micropuncture technique under fluoroscopy guidance. Then, a #6 Nigerian sheath was inserted and I went up with XB 3.5 guide, engaged the left main. Multip le pictures were taken. I did pictures to visualize the circumflex and . It was subtotally occluded with faint flow down the left circumflex. The LA D has a 90% long prox and mid lesions, multiple tandem lesions. The decision w as to fix the left circumflex when the case was discussed in the compl ex coronary conference. I went up with Runthrough wire, with mild difficulty, I was abl e to cross the mid left circumflex lesion and I adva nced the wire into the OM and I went up with a 2.0 x 12 mm compliant balloon. I predilated the lesion up to 14 atmospheres. Then, the vessel picked up and louise eared to be large territory. Then, I went up with a 2.25 x 20 mm Synergy drug-eluting stent and depl oyed it across the mid left circumflex at nominal pressu re. Then, I went up with a 2.5 x 12 mm noncompliant balloon and postdilated the stent up to 14 atmospheres. The lesion was reduced from 99% to 0%. PATRICIA flow improved from 1-3. Les ion length was 15 mm. This was a high risk lesion. There was no com plication. I removed my wire, obtained final shot with angiographic results, th en the guide removed. Arteriotomy site was secured using Perclose closure device. IMPRESSION: 1. Subtotal left circumflex disease status post PCI with drug-eluted stent. 2. Severe mid LAD and proximal LAD disease. PLAN: Continue aspirin, switch Plavix to Brilint a and plan for a staged PCI into the LAD. PATIENT NAME: MESERET MOTTA [id number] Dictated By: Herson Tang MD Date Dictated: 06/28/2022 08:41:18 Date Transcribed: 06/28/2022 10:21:20 JOSÉ MIGUEL/SONDRA/DORIS/TAVON Receipt ID: [id number] Authenticated by Herson Tang MD On 3 06:06:55 AM Electronically Signed by Herson Tang MD on 0 07/11/22 at 0606 PATIENT NAME: MESERET MOTTA [id number] 3345-12-21 07:57:00-00:00 HC[facility]L [facility] Hospitalist Progress Note REPORT#:[id number] REPORT STATUS: Signed DATE:06/28/22 TIME: 756 PATIENT: MESERET MOTTA UNIT #: [id number] ROOM/BED: [place] [address] : 56 AGE: 67 SEX: F ATTEND: Skye Johnson ADM AUTHOR: Skye Johnson MD * ALL edits or amendments must be made on the [employer]/computer document * Subjective Chief complaint: Patient on 8 L oxygen for shortness of breath, s /p cardiac stent placement x1 yesterday, plan for hemodial ysis today, patient lives alone, rehab consulted for evaluation for inpatient devan ab, pulmonary consulted, started on DuoNeb treatment Objective General VS/I O: Vital Signs: Date Time Temp Pulse Resp B/P B/P Pulse O2 O2 F low FiO2 Mean Ox Delivery Rate 06/28 1515 98.4 74 19 119/88 98 Nasal 3 cannula 06/28 1121 97.7 108 16 177/99 125.4 100 Nasal 7 cannula 06/28 0757 97.7 85 16 129/70 89.6 100 Nasal 3 cannula 06/28 0500 97.5 81 16 123/72 88.8 100 06/28 0028 97.7 79 18 120/72 87.9 100 06/27 2108 97.8 79 16 140/73 100 Nasal 2 cannula 06/27 2039 97.7 71 18 114/67 0.0 95 06/27 2000 Nasal 4 cannula 06/27 1754 97.6 69 21 119/71 99 Nasal 2 cannula 24 hour I O ending at 0700: 06/28 0700 06/27 1900 Intake Total 1620.00 Output Total 3100 Balance -1480.00 Intake, IV 920.00 Intake, Oral 700 Number 0 Bowel Movements Number Voids 2 Output, 3100 Hemodialysis Output, Stool 0 PATIENT WEIGHT: Weight (lb): 245 Weight (oz): 9.52 Weight (kg): 111.13 Medications: Active Meds + DC'd Last 24 Hrs Albuterol/Ipratropium (DUONEB) 3 ML RTQ4H PRN DC N NEB Ticagrelor (BRILINTA) 90 MG Q12HR PO Ampicillin Sodium/Sulbactam Sodium (UNASYN 3GM) 3 GM 2100 IV Sodium Chloride (SODIUM CHLORIDE 0.9% 100 ML) 1 00 ML Sodium Chloride (SODIUM CHLORIDE 0.9%) 1,000 ML .[id number] ONE IV (DC) Hydrocodone Bitart/Acetaminophen (NORCO 5/325) 1 TAB Q6H PRN PRN PO Hydrocodone Bitart/Acetaminophen (NORCO 10/325) 1 TAB Q6H PRN PRN PO Atropine Sulfate (ATROPINE SULFATE 0.1MG/ML SYR) 0.5 MG ASDIR PRN IV Sodium Chloride (SODIUM CHLORIDE 0.9%) 1,000 ML .[id number] ONE IV (DC) Sodium Chloride (SODIUM CHLORIDE 0.9%) 500 ML DIR PRN IV Sevelamer Carbonate (RENVELA) 3,200 MG C MEALS P O Epoetin Vanesa-epbx (RETACRIT) 6,000 UNIT TuThSa@2 100 SUBQ Clopidogrel Bisulfate (Plavix) 75 MG DAILY PO (D C) Mupirocin (BACTROBAN 2% 22 GM OINTMENT) 1 APPLIC BID TOPICAL Calcitriol (RocaltroL) 0.5 MCG DAILY PO Midodrine (PROAMATINE) 5 MG 0900,1300,1700 PO Levothyroxine Sodium (LEVOTHYROXINE SODIUM) 150 MCG DAILY 0600 PO Buspirone HCl (BUSPAR) 5 MG BID PO Metoprolol Tartrate (LOPRESSOR) 12.5 MG Q12HR PO Pantoprazole (PROTONIX) 40 MG 0600,1800 PO Midodrine (PROAMATINE) 10 MG DIALYSIS-DOSE BEFOR E PO (CKD) Albumin Human (ALBUMINAR-25%) 12.5 GM ASDIR PRN IV Heparin Sodium (Porcine) (HEPARIN SODIUM) 3,000 UNIT ASDIR PRN DIALYSIS Lidocaine HCl (LIDOCAINE HCL/PF) 0.5 ML ASDIR P RN I-DERMAL (CKD) Mannitol (MANNITOL 25% 12.5GM/50ML) 12.5 GM ASDI R PRN IV Sodium Chloride (SODIUM CHLORIDE 0.9%) 2,000 ML ASDIR PRN IV Sodium Chloride (SODIUM CHLORIDE) 5 ML ASDIR PRN IV Sodium Chloride (SODIUM CHLORIDE) 10 ML ASDIR DC N IV Sodium Chloride (SODIUM CHLORIDE 0.9%) 250 ML DIR PRN IV Aspirin (ASPIRIN) 81 MG C BK PO Atorvastatin Calcium (LIPITOR) 40 MG 2100 PO Insulin Human Lispro (HUMALOG) 0 AC HS SUBQ Dextrose/Water (DEXTROSE 10% IN WATER) 125 ML DIR PRN IV (CKD) Dextrose/Water (DEXTROSE 10% IN WATER) 250 ML DIR PRN IV (CKD) Glucagon (GLUCAGON) 1 MG ASDIR PRN IM Melatonin (Melatonin) 3 MG BEDTIME PRN PRN PO Acetaminophen (TYLENOL) 650 MG Q4H PRN PRN PO Heparin Sodium (HEPARIN 5000 UNITS/ML) 5,000 UNI T ASDIR PRN IV Nitroglycerin (NITROSTAT) 0.4 MG Q5M PRN PRN SL Ondansetron HCl (ZOFRAN) 4 MG Q6H PRN PRN IV Physical Exam General appearance: alert, awake, oriented Head/Eyes: atraumatic, clear cornea, EOMI, kristopher l conjunctiva/sclera, PERRLA ENT: moist mucosal membranes Neck: supple/no meningismus, no JVD Cardiovascular: normal heart sounds, regular rat e rhythm, no murmur Respiratory: aerating well, clear to auscultatio n, symmetric expansion Abdomen: non-tender, normal bowel sounds, soft, no distention Extremities: edema, moves all Neuro/SURGICAL SPECIALIST: alert, oriented X 3, normal speech, n o motor deficits Ulcer: Type/cause: diabetic, arterial Location: foot (bilateral toes) Psychiatry: normal affect Results Findings/Data: Laboratory Tests 06/28 06/28 06/28 06/28 06/27 1120 0908 0535 0511 3775 Chemistry Sodium (134 - 147 mEq/L) 138 136 Potassium (3.4 - 5.0 mEq/L) 4.3 4.2 Chloride (100 - 108 mEq/L) 101 100 Carbon Dioxide (21 - 33 mEq/l) 25 22 Anion Gap (0 - 20) 17 18 BUN (7 - 18 mg/dL) 25 H 22 H Creatinine (0.6 - 1.3 mg/dL) 3.9 H 3.9 H Glomerular Filtr Rate (80 - 90) 12.1 L 12.1 L Glucose (70 - 110 mg/dL) 165 H 163 H POC Glucose (70 - 110 MG/DL) 112 H 167 H 99 Calcium (8.0 - 10.5 mg/dL) 9.1 9.3 Laboratory Tests 06/28 0535 Hematology WBC (4.5 - 11.0 x10 3/uL) 10.8 RBC (3.54 - 5.02 x10 6/uL) 2.89 L Hgb (11.0 - 15.0 g/dL) 8.9 L Hct (33.0 - 45.0 %) 30.0 L MCV (81.0 - 99.0 fL) 103.8 H MCH (27.0 - 33.0 pg) 30.8 MCHC (33.0 - 37.0 g/dL) 29.7 L RDW (11.5 - 14.5 %) 15.6 H Plt Count (150 - 400 x10 3/uL) 149 L MPV (7.0 - 9.0 fL) 9.7 H Neut % (Auto) (56.0 - 77.0 %) 90.4 H Lymph % (Auto) (14.0 - 32.0 %) 2.7 L Kerr % (Auto) (4.8 - 9.0 %) 4.9 Eos % (Auto) (0.3 - 3.7 %) 1.4 Baso % (Auto) (0.0 - 2.0 %) 0.1 Neut # (Auto) (2.0 - 7.6 x10 3/uL) 9.74 H Lymph # (Auto) (1.0 - 3.8 x10 3/uL) 0.29 L Kerr # (Auto) (0.1 - 0.8 x10 3/uL) 0.53 Eos # (Auto) (0.0 - 0.2 x10 3/uL) 0.15 Baso # (Auto) (0.0 - 0.2 x10 3/uL) 0.01 Abs Immat Gran (auto) (0.00 - 0.03 x10 3/uL) 0. 05 H Add Manual Diff NO Immature Gran % (0.0 - 2.0 %) 0.5 Nucleated RBC % (0 - 0 %) 0.0 Nucleated RBCs # (Man) (0.0 - 0.1 x10 3/uL) 0.0 0 Diagnosis, Assessment Plan Consultants: cardiology, cardiovascular surgery, nephrology, wound care Free Text DxA P Notes Free text DxA P notes: Assessment and plans: Three-vessel coronary artery disease CV surgery following. Dopplers, alexandro duplex were ordered patient is off the heparin drip on aspirin, Brilinta, atorvastatin, metoprolol -echo from OSH LVEF 50% cardiology seen -S/p PCI to left circumflex 06/27 Patient needs staged PCI to mid and proximal LAD in 1 to 2 weeks as outpatient Severe PAD/toe ulcer: Status post MORPHOLOGIST and atherec cheri with CSI followed by MORPHOLOGIST with stable balloon on left anterior and posterior tibial artery, for r ight anterior and posterior tibial artery Will need staged intervention as p er cardiology. 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 Plan for peripheral angiogram in the morning as per c ardiology 06/29 Acute respiratory failure with hypoxemia Patient presented with supplemental nasal cannu la oxygen -Pulmonary edema, pleural effusion on CT chest, no PE Patient needs to be evaluated for home oxygen o nce patient is medically cleared for discharge On 8 L oxygen via nasal cannula 06/28 DuoNeb treatment Pulmonary consulted Leukocytosis: -CT chest result done -Afebrile -Patient has multiple ulcers in hands and feet. Wound cx growing ent fecalis, rocephin switched to unasyn 07/04 -blood culture 06/26 (was not ordered on admissi on) no growth till now End-stage renal disease on hemodialysis Patient is on a Sunday sched ule Ban[employer] Ripening Room Supervisor following Functional quadriplegia: Rehab consult as recommended by cardiology. Pat ient lives alone. 06/28 Elevated LFTs Secondary to hepatic congestion Monitor LFTs Type 2 diabetes mellitus on insulin sliding scale Diabetic diet Hypothyroidism Resume Synthroid Anemia of chronic disease -Transfuse for Hb <7 -No bleeding hypotension on midodrine on empiric IV CTX check labs in am SCD for DVT prophylaxis. Disposition: S/p PCI and 1 stent placement in le ft circumflex, plan for peripheral angiogram to right anterior and poste rior tibial artery. On 8 L oxygen via nasal cannula. Awaiting pulmonary rec ommendation. On Unasyn. Awaiting for rehab eval. Patient lives alone. Co ntinue inpatient care. Quality: Gen Med Crit Care VTE Prophylaxis VTE prophylaxis initiated: yes Current Medications Current medication review: I attest that the foregoing medication list in t medical record is true, accurate, and complete to the best of my knowled ge. Electronically Signed by Skye Johnson MD on 2 at 1650 [facility] #:[id number] END OF REPORT 2022-06-28 07:02:00-00:00 [facility] ([facility] Nephrology Progress Note REPORT#:[id number] REPORT STATUS: Signed DATE:06/28/22 TIME: 07 PATIENT: MESERET MOTTA UNIT #: [id number] ROOM/BED: [place] [id number] : 56 AGE: 67 SEX: F ATTEND: Skye Johnson ADM AUTHOR: Jennifer Shelton MD * ALL edits or amendments must be made on the Summay/computer document * Subjective Chief complaint: Transferred for CABG HPI: Patient seen and evaluated, discussed with care team, 67-year-old female with history of end-stage renal d isease on chronic hemodialysis Sunday, and Sunday, diabetes mellitus, peripheral arterial disease and hypertension who was transferred to [facility] for CABG. Terrence quevedo initially presented to [facility] in [place] compl aining of shortness of breath. Underwent left heart cath which showed diffuse di sease and patient was transferred for evaluation for CABG. renal consult was requ ested for management of her end-stage renal disease/ hemodialysis. Patient reports: Yes: complaints. Comments: Patient seen and evaluated, HPI no change from i nitial, feels okay. Review of Systems Constitutional: Reports: fatigue. Denies: chills, fever. Skin: Denies: abrasion, bruising. Allergy/Immun: Denies: hives, itching. Eyes: Denies: redness, discharge. ENT: Denies: ear drainage, ear ringing. Respiratory: Denies: hemoptysis, SOB. Cardiovascular: Denies: chest pain. Objective General VS/I O: Vital Signs: Date Time Temp Pulse Resp B/P B/P Pulse O2 O2 F low FiO2 Mean Ox Delivery Rate 06/28 0500 36.4 81 16 123/72 88.8 100 06/28 0028 36.5 79 18 120/72 87.9 100 06/27 2108 36.6 79 16 140/73 100 Nasal 2 cannula 06/27 2039 36.5 71 18 114/67 0.0 95 06/27 2000 Nasal 4 cannula 06/27 1754 36.4 69 21 119/71 99 Nasal 2 cannula 06/27 1631 36.3 71 16 125/67 86.6 99 Nasal 2 cannula 06/27 1522 Nasal 2 cannula 06/27 0808 36.4 82 16 125/76 92.2 99 Nasal 3 cannula 06/27 0750 Nasal 2 cannula 24 hour I O ending at 0700: 06/28 0700 06/27 1900 Intake Total 1620.00 Output Total 3100 Balance -1480.00 Intake, IV 920.00 Intake, Oral 700 Number 0 Bowel Movements Number Voids 2 Output, 3100 Hemodialysis Output, Stool 0 PATIENT WEIGHT: Weight (lb): 245 Weight (oz): 9.52 Weight (kg): 111.13 Medications Active Meds + DC'd Last 24 Hrs Ampicillin Sodium/Sulbactam Sodium (UNASYN 3GM) 3 GM 2100 IV Sodium Chloride (SODIUM CHLORIDE 0.9% 100 ML) 1 00 ML Sodium Chloride (SODIUM CHLORIDE 0.9%) 1,000 ML .[id number] ONE IV Hydrocodone Bitart/Acetaminophen (NORCO 5/325) 1 TAB Q6H PRN PRN PO Hydrocodone Bitart/Acetaminophen (NORCO 10/325) 1 TAB Q6H PRN PRN PO Atropine Sulfate (ATROPINE SULFATE 0.1MG/ML SYR) 0.5 MG ASDIR PRN IV Sodium Chloride (SODIUM CHLORIDE 0.9%) 1,000 ML .[id number] ONE IV (DC) Sodium Chloride (SODIUM CHLORIDE 0.9%) 500 ML DIR PRN IV Ticagrelor (BRILINTA) 0 .STK-MED ONE .ROUTE (DC) Fentanyl Citrate (SUBLIMAZE) 0 .STK-MED ONE .ROU TE (DC) Midazolam HCl (VERSED) 0 .STK-MED ONE .ROUTE (DC ) Acetaminophen (TYLENOL) 0 .STK-MED ONE .ROUTE (D C) Verapamil HCl (ISOPTIN) 0 .STK-MED ONE IV (DC) Nitroglycerin/Dextrose (NITROGLYCERIN 50,000MCG/ D5W 250ML) 250 ML .STK-MED ONE IV (DC) Heparin Sodium (HEPARIN SODIUM) 0 .STK-MED ONE . ROUTE (DC) Heparin Sodium/Sodium Chloride (HEPARIN 2,000 UN ITS/NS 1,000mL) 1,000 ML .STK-MED ONE IV (DC) Heparin Sodium/Sodium Chloride (HEPARIN 1,000 UN ITS/NS 500ML) 500 ML .STK- MED ONE IV (DC) Lidocaine HCl (LIDOCAINE HCL/PF) 0 .STK-MED ONE .ROUTE (DC) Aspirin (ASPIRIN) 0 .STK-MED ONE PO (DC) Aspirin (ASPIRIN) 0 .STK-MED ONE .ROUTE (DC) Clopidogrel Bisulfate (Plavix) 0 .STK-MED ONE .R OUTE (DC) Metoprolol Tartrate (LOPRESSOR) 0 .STK-MED ONE .ROUTE (DC) Ampicillin Sodium/Sulbactam Sodium (UNASYN 3GM) 3 GM 1800 IV (DC) Sodium Chloride (SODIUM CHLORIDE 0.9% 100 ML) 1 00 ML Atropine Sulfate (ATROPINE SULFATE 0.1MG/ML SYR) 0.5 MG ASDIR PRN IV (DC ) Sodium Chloride (SODIUM CHLORIDE 0.9%) 500 ML DIR PRN IV (DC) Sevelamer Carbonate (RENVELA) 3,200 MG C MEALS P O Epoetin Vanesa-epbx (RETACRIT) 6,000 UNIT TuThSa@2 100 SUBQ Clopidogrel Bisulfate (Plavix) 75 MG DAILY PO Mupirocin (BACTROBAN 2% 22 GM OINTMENT) 1 APPLIC BID TOPICAL Calcitriol (RocaltroL) 0.5 MCG DAILY PO Midodrine (PROAMATINE) 5 MG 0900,1300,1700 PO Levothyroxine Sodium (LEVOTHYROXINE SODIUM) 150 MCG DAILY 0600 PO Buspirone HCl (BUSPAR) 5 MG BID PO Metoprolol Tartrate (LOPRESSOR) 12.5 MG Q12HR PO Pantoprazole (PROTONIX) 40 MG 0600,1800 PO Midodrine (PROAMATINE) 10 MG DIALYSIS-DOSE BEFOR E PO (CKD) Albumin Human (ALBUMINAR-25%) 12.5 GM ASDIR PRN IV Heparin Sodium (Porcine) (HEPARIN SODIUM) 3,000 UNIT ASDIR PRN DIALYSIS Lidocaine HCl (LIDOCAINE HCL/PF) 0.5 ML ASDIR DC N I-DERMAL (CKD) Mannitol (MANNITOL 25% 12.5GM/50ML) 12.5 GM ASDI R PRN IV Sodium Chloride (SODIUM CHLORIDE 0.9%) 2,000 ML ASDIR PRN IV Sodium Chloride (SODIUM CHLORIDE) 5 ML ASDIR PRN IV Sodium Chloride (SODIUM CHLORIDE) 10 ML ASDIR DC N IV Sodium Chloride (SODIUM CHLORIDE 0.9%) 250 ML DIR PRN IV Aspirin (ASPIRIN) 81 MG C BK PO Atorvastatin Calcium (LIPITOR) 40 MG 2100 PO Insulin Human Lispro (HUMALOG) 0 AC HS SUBQ Dextrose/Water (DEXTROSE 10% IN WATER) 125 ML DIR PRN IV (CKD) Dextrose/Water (DEXTROSE 10% IN WATER) 250 ML DIR PRN IV (CKD) Glucagon (GLUCAGON) 1 MG ASDIR PRN IM Melatonin (Melatonin) 3 MG BEDTIME PRN PRN PO Acetaminophen (TYLENOL) 650 MG Q4H PRN PRN PO Heparin Sodium (HEPARIN 5000 UNITS/ML) 5,000 UNI T ASDIR PRN IV Nitroglycerin (NITROSTAT) 0.4 MG Q5M PRN PRN SL Ondansetron HCl (ZOFRAN) 4 MG Q6H PRN PRN IV Physical Exam General appearance: alert, no acute distress Head/eyes: atraumatic, normocephalic ENT: normal nose Neck: non-tender, supple/no meningismus Cardiovascular: normal heart sounds, no rub Respiratory: aerating well, symmetric expansion Abdomen: non-tender, soft Genitourinary: no flank pain Extremities: pitting edema, non-tender Musculoskeletal: no CVA tenderness, no tendernes s Neuro/SURGICAL SPECIALIST: alert, normal speech Skin: dry, intact Ulcer: Type/cause: diabetic, arterial Location: foot (bilateral toes) Results Findings/Data: Laboratory Tests 06/28 06/27 06/27 06/27 06/27 0535 2052 1628 1532 0825 Chemistry Sodium (134 - 147 mEq/L) 136 Potassium (3.4 - 5.0 mEq/L) 4.2 Chloride (100 - 108 mEq/L) 100 Carbon Dioxide (21 - 33 mEq/l) 22 Anion Gap (0 - 20) 18 BUN (7 - 18 mg/dL) 22 H Creatinine (0.6 - 1.3 mg/dL) 3.9 H Glomerular Filtr Rate (80 - 90) 12.1 L Glucose (70 - 110 mg/dL) 163 H POC Glucose (70 - 110 MG/DL) 99 147 H 154 H 171 H Calcium (8.0 - 10.5 mg/dL) 9.3 06/27 0800 Chemistry Hemoglobin A1c (4.8 - 6.0 %A1C) 5.8 Laboratory Tests 06/27 1429 Coagulation Activated Coag Time (74 - 137 SEC) 281 H Laboratory Tests 06/28 06/27 0535 0800 Hematology WBC (4.5 - 11.0 x10 3/uL) 10.8 9.4 RBC (3.54 - 5.02 x10 6/uL) 2.89 L 2.83 L Hgb (11.0 - 15.0 g/dL) 8.9 L 8.6 L Hct (33.0 - 45.0 %) 30.0 L 29.2 L MCV (81.0 - 99.0 fL) 103.8 H 103.2 H MCH (27.0 - 33.0 pg) 30.8 30.4 MCHC (33.0 - 37.0 g/dL) 29.7 L 29.5 L RDW (11.5 - 14.5 %) 15.6 H 15.5 H Plt Count (150 - 400 x10 3/uL) 149 L 139 L MPV (7.0 - 9.0 fL) 9.7 H 9.7 H Neut % (Auto) (56.0 - 77.0 %) 90.4 H 82.6 H Lymph % (Auto) (14.0 - 32.0 %) 2.7 L 6.4 L Kerr % (Auto) (4.8 - 9.0 %) 4.9 8.8 Eos % (Auto) (0.3 - 3.7 %) 1.4 1.5 Baso % (Auto) (0.0 - 2.0 %) 0.1 0.1 Neut # (Auto) (2.0 - 7.6 x10 3/uL) 9.74 H 7.78 H Lymph # (Auto) (1.0 - 3.8 x10 3/uL) 0.29 L 0.6 0 L Kerr # (Auto) (0.1 - 0.8 x10 3/uL) 0.53 0.83 H Eos # (Auto) (0.0 - 0.2 x10 3/uL) 0.15 0.14 Baso # (Auto) (0.0 - 0.2 x10 3/uL) 0.01 0.01 Abs Immat Gran (auto) (0.00 - 0.03 x10 3/uL) 0. 05 H 0.06 H Add Manual Diff NO NO Immature Gran % (0.0 - 2.0 %) 0.5 0.6 Nucleated RBC % (0 - 0 %) 0.0 0.0 Nucleated RBCs # (Man) (0.0 - 0.1 x10 3/uL) 0.0 0 0.00 Diagnosis, Assessment Plan Free Text A P: Patient seen and evaluated, discussed with care team, images and laboratories reviewed. End-stage renal disease on hronic hemodialysis, Sunday, and Sunday, plan for hemodialysis today Status post left heart cath with multi-vessel co ronary artery disease, respiratory evaluation for CABG. Hypertension: Monitor blood pressure closely and adjust medications as needed Hyperlipidemia: Lipitor Diabetes mellitus: Insulin: Monitor blood sugar closely adjust medications as needed Anemia: We will start Epogen 4000 subcu 3 times a week Elevated alkaline phosphatase we will check PTH. 06/23/2022 plan for filtration today if her bloo d pressure allows, had hemodialysis yesterday. See showed hemoglobin 9. 1, platelet 136, blood count 12.1. We will increase Epoge n to 6000 subcu 3 times a week, PTH 660 we will add Rocaltrol 0.5 mcg p.o. daily, will add midodrine 5 mg p.o. 3 times daily to allow for ultrafiltration. 06/24/2022 laboratory for th is morning showed sodium 136, potassium 4.9, CO2 23, BUN 50, creatinine 5.8, phos phorus 7.1 we will add Renvela 2 p.o. with each meal , hemoglobin 9.3, platelet 152, blood count 13.3 , for hemodialysis today, 4 hours, 2K, ultrafiltration 3 to 4 L if tolerated , seen during HD. 06/25/2022 laboratory this tiffany mcfarland showed sodium 137, potassium 4.3, CO2 25, BUN 31, creatinine 4.5, alkaline phosphatase 272, st atus post ultrafiltration yesterday, 3.9 L removed, plan for dialysis in t morning. 06/26/2022 laboratory this tiffany mcfarland showed sodium 137, potassium 4.4, CO2 22, BUN 39, creatinine 5.4, hemoglob in 9.8, platelet 145, blood count 14, phosphorus 6.8 we will increase Renvela to 4 p.o. with each meal, plan for hemodialysis today, 4 hours, 3K, ultrafiltration 3 to 4 L if tolerat ed 06/27/2022 status post peripheral angiogram/inte rvention yesterday, only had less than 2 hours of dialysis yesterday due to hypotension postprocedure, will plan on hemodialysis today, 4 hours, 3K, ultrafiltration 3 to 4 L if tolerated 06/28/2022 status post hemodialysis yesterday, w ill plan for ultrafiltration today 3 to 4 L if tolerated. Laboratory this manav barba showed sodium 136, potassium 4.2, CO2 22, BUN 22, creatinine 3.9, h emoglobin 8.9, platelet 149, blood count 10.8 Consultants: cardiology, cardiovascular surgery, nephrology, wound care Electronically Signed by Jennifer Shelton MD on at 0951 [facility] #:[id number] END OF REPORT 2022-06-27 15:22:00-00:00 [id number] [place] [address] PATIENT NAME: MESERET MOTTA ADMIT DATE: 06/22 ACCOUNT NO: [id number] ROOM NO: [id number] AGE: 67 REPORT TYPE: eELECTROCARDIOGRAM REPORT SEX: F ADMITTING PHYSICIAN:Delmy Ashton MD ATTENDING PHYSICIAN:Skye Johnson MD Order: [id number] Test Reason : S/P PCI Test Date/Time Stamp: SunJun 27 2022 15:22:25 Blood Pressure : / mmHG Vent. Rate : 075 BPM Atrial Rate : 075 BPM P-R Int : 170 ms QRS Dur : 110 ms QT Int : 396 ms P-R-T Axes : 070 048 131 degree s QTc Int : 442 ms Normal sinus rhythm Nonspecific T wave abnormality Abnormal ECG When compared with ECG of 22-JUN-2022 19:12, Significant changes have occurred Confirmed by MD DAS GERARD ([id number]) on 022 6:59:47 AM Referred By: Skye Johnson Confirmed by:DEE DAS MD Electronically Signed by Dee Das MD on 1 08/30/21 at 0659 PATIENT NAME: MESERET MOTTA [id number] 11:13[facility]00-00:00 [facility] Progress Note REPORT#:[id number] REPORT STATUS: Signed DATE:06/27/22 TIME: 1113 PATIENT: MESERET MOTTA UNIT #: [id number] ROOM/BED: [place] [address] : 56 AGE: 67 SEX: F ATTEND: Skye Johnson ADM AUTHOR: Sybil Byers MD * ALL edits or amendments must be made on the Summay/computer document * Subjective Chief complaint: Woundcare FU for foot, hand leg ulcers; no extre mity pain. Objective General Medications: Active Meds + DC'd Last 24 Hrs Sodium Chloride (SODIUM CHLORIDE 0.9%) 1,000 ML .[id number] ONE IV Verapamil HCl (ISOPTIN) 0 .STK-MED ONE IV (DC) Nitroglycerin/Dextrose (NITROGLYCERIN 50,000MCG/ D5W 250ML) 250 ML .STK-MED ONE IV (DC) Heparin Sodium (HEPARIN SODIUM) 0 .STK-MED ONE . ROUTE (DC) Heparin Sodium/Sodium Chloride (HEPARIN 2,000 UN ITS/NS 1,000mL) 1,000 ML .STK-MED ONE IV (DC) Heparin Sodium/Sodium Chloride (HEPARIN 1,000 UN ITS/NS 500ML) 500 ML .STK- MED ONE IV (DC) Lidocaine HCl (LIDOCAINE HCL/PF) 0 .STK-MED ONE .ROUTE (DC) Aspirin (ASPIRIN) 0 .STK-MED ONE PO (DC) Aspirin (ASPIRIN) 0 .STK-MED ONE .ROUTE (DC) Clopidogrel Bisulfate (Plavix) 0 .STK-MED ONE .R OUTE (DC) Metoprolol Tartrate (LOPRESSOR) 0 .STK-MED ONE . ROUTE (DC) Ampicillin Sodium/Sulbactam Sodium (UNASYN 3GM) 3 GM 1800 IV Sodium Chloride (SODIUM CHLORIDE 0.9% 100 ML) 1 00 ML Atropine Sulfate (ATROPINE SULFATE 0.1MG/ML SYR) 0.5 MG ASDIR PRN IV Sodium Chloride (SODIUM CHLORIDE 0.9%) 500 ML DIR PRN IV Clopidogrel Bisulfate (Plavix) 0 .STK-MED ONE .R OUTE (DC) Verapamil HCl (ISOPTIN) 0 .STK-MED ONE IV (DC) Heparin Sodium/Sodium Chloride (HEPARIN 1,000 UN ITS/NS 500ML) 500 ML .STK- MED ONE IV (DC) Fentanyl Citrate (SUBLIMAZE) 0 .STK-MED ONE .ROU TE (DC) Midazolam HCl (VERSED) 0 .STK-MED ONE .ROUTE (DC ) Heparin Sodium/Sodium Chloride (HEPARIN 1,000 UN ITS/NS 500ML) 1,000 ML .STK- MED ONE IV (DC) Lidocaine HCl (LIDOCAINE HCL/PF) 0 .STK-MED ONE .ROUTE (DC) Sevelamer Carbonate (RENVELA) 3,200 MG C MEALS P O Epoetin Vanesa-epbx (RETACRIT) 6,000 UNIT TuThSa@2 100 SUBQ Clopidogrel Bisulfate (Plavix) 75 MG DAILY PO Mupirocin (BACTROBAN 2% 22 GM OINTMENT) 1 APPLIC BID TOPICAL Calcitriol (RocaltroL) 0.5 MCG DAILY PO Midodrine (PROAMATINE) 5 MG 0900,1300,1700 PO Levothyroxine Sodium (LEVOTHYROXINE SODIUM) 150 MCG DAILY 0600 PO Buspirone HCl (BUSPAR) 5 MG BID PO Metoprolol Tartrate (LOPRESSOR) 12.5 MG Q12HR PO Pantoprazole (PROTONIX) 40 MG 0600,1800 PO Midodrine (PROAMATINE) 10 MG DIALYSIS-DOSE BEFOR E PO (CKD) Albumin Human (ALBUMINAR-25%) 12.5 GM ASDIR PRN IV Heparin Sodium (Porcine) (HEPARIN SODIUM) 3,000 UNIT ASDIR PRN DIALYSIS Lidocaine HCl (LIDOCAINE HCL/PF) 0.5 ML ASDIR DC N I-DERMAL (CKD) Mannitol (MANNITOL 25% 12.5GM/50ML) 12.5 GM ASDI R PRN IV Sodium Chloride (SODIUM CHLORIDE 0.9%) 2,000 ML ASDIR PRN IV Sodium Chloride (SODIUM CHLORIDE) 5 ML ASDIR PRN IV Sodium Chloride (SODIUM CHLORIDE) 10 ML ASDIR DC N IV Sodium Chloride (SODIUM CHLORIDE 0.9%) 250 ML DIR PRN IV Aspirin (ASPIRIN) 81 MG C BK PO Atorvastatin Calcium (LIPITOR) 40 MG 2100 PO Insulin Human Lispro (HUMALOG) 0 AC HS SUBQ Dextrose/Water (DEXTROSE 10% IN WATER) 125 ML DIR PRN IV (CKD) Dextrose/Water (DEXTROSE 10% IN WATER) 250 ML DIR PRN IV (CKD) Glucagon (GLUCAGON) 1 MG ASDIR PRN IM Melatonin (Melatonin) 3 MG BEDTIME PRN PRN PO Morphine Sulfate (morphine SULFATE) 2 MG Q4H PRN PRN IV (DC) Tramadol HCl (ULTRAM) 50 MG Q6H PRN PRN PO (DC) Acetaminophen (TYLENOL) 650 MG Q4H PRN PRN PO Heparin Sodium (HEPARIN 5000 UNITS/ML) 5,000 UNI T ASDIR PRN IV Nitroglycerin (NITROSTAT) 0.4 MG Q5M PRN PRN SL Ondansetron HCl (ZOFRAN) 4 MG Q6H PRN PRN IV Dietitian Nutrition assessment The data set between the solid lines has been im ported from the dietitian's assessment. BMI Calculated: 39.6 Nutrition related diagnosis: Nutrition diagnosis details: Nutrition problem: Nutrition etiology: Nutrition signs and symptoms: Nutrition prescription: Dietitian name: Assessment completed: Physical Exam General appearance: awake Skin: Multiple PT ulcers abrasions on B hands, B feet, L>R, w erythema 0ver L dorsum foot L forefoot. Ulcers on dorsum toes, L >R, w erythema @ forefoot, piunched-out appearance suggestive of arterial u lcers. Weak pulses. Results Findings/Data: Laboratory Tests: 06/27 06/27 06/27 06/27 0825 0800 0605 0442 Chemistry Sodium (134 - 147 mEq/L) 136 Potassium (3.4 - 5.0 mEq/L) 4.5 Chloride (100 - 108 mEq/L) 98 L Carbon Dioxide (21 - 33 mEq/l) 25 Anion Gap (0 - 20) 18 BUN (7 - 18 mg/dL) 34 H Creatinine (0.6 - 1.3 mg/dL) 4.9 H Glomerular Filtr Rate (80 - 90) 9.2 L Glucose (70 - 110 mg/dL) 169 H POC Glucose (70 - 110 MG/DL) 171 H 170 H Hemoglobin A1c (4.8 - 6.0 %A1C) 5.8 Calcium (8.0 - 10.5 mg/dL) 9.4 Hematology WBC (4.5 - 11.0 x10 3/uL) 9.4 RBC (3.54 - 5.02 x10 6/uL) 2.83 L Hgb (11.0 - 15.0 g/dL) 8.6 L Hct (33.0 - 45.0 %) 29.2 L MCV (81.0 - 99.0 fL) 103.2 H MCH (27.0 - 33.0 pg) 30.4 MCHC (33.0 - 37.0 g/dL) 29.5 L RDW (11.5 - 14.5 %) 15.5 H Plt Count (150 - 400 x10 3/uL) 139 L MPV (7.0 - 9.0 fL) 9.7 H Neut % (Auto) (56.0 - 77.0 %) 82.6 H Lymph % (Auto) (14.0 - 32.0 %) 6.4 L Kerr % (Auto) (4.8 - 9.0 %) 8.8 Eos % (Auto) (0.3 - 3.7 %) 1.5 Baso % (Auto) (0.0 - 2.0 %) 0.1 Neut # (Auto) (2.0 - 7.6 x10 3/uL) 7.78 H Lymph # (Auto) (1.0 - 3.8 x10 3/uL) 0.60 L Kerr # (Auto) (0.1 - 0.8 x10 3/uL) 0.83 H Eos # (Auto) (0.0 - 0.2 x10 3/uL) 0.14 Baso # (Auto) (0.0 - 0.2 x10 3/uL) 0.01 Abs Immat Gran (auto) (0.00 - 0.03 x10 3/uL) 0. 06 H Add Manual Diff NO Immature Gran % (0.0 - 2.0 %) 0.6 Nucleated RBC % (0 - 0 %) 0.0 Nucleated RBCs # (Man) (0.0 - 0.1 x10 3/uL) 0.0 0 06/26 06/26 06/26 06/26 06/26 1928 1715 1648 1627 1605 Chemistry POC Glucose (70 - 110 MG/DL) 143 H Coagulation Activated Coag Time (74 - 137 SEC) 275 H 245 23 4 251 H 06/26 06/26 1400 1141 Chemistry POC Glucose (70 - 110 MG/DL) 192 H 215 H Microbiology: Date/Time Procedure - Status Source Growth 06/26 1900 Blood Culture - RECD BLOOD 06/26 1900 Blood Culture - RECD BLOOD Diagnosis, Assessment Plan Free Text A P: Multiple ulcers, B feet, B h ands , sp fall, w suspected arterial ulcers, B feet - Bactroban BID to all ulcers, leave open to air . Wound cx- rare Enterococcus ; XR of L foot - no acute changes, mild degenerative changes. Severe PVD, BLE - CAD- tx per cardiology DM ESRD on HD [ x] Optimize Nutrition and Glycemic Control [ x] Pressure relieving inte rventions (Low Air Mattress, Prevalon boot, Turn q2h ) [ x] Nursing to implement impaired skin integrit y care plan as per skin care protocol Coordinattion of care D/W [ ] Other MD's [ ] Pat ient [ ] Family [ ] Nursing [ ] Case Management Electronically Signed by Sybil Byers MD on at 0016 RPT #:[id number] END OF REPORT 2022-06-27 10:22:00-00:00 [id number] [place] [address] PATIENT NAME: MESERET MOTTA ADMIT DATE: 06/22 ACCOUNT NO: [id number] [place] [facility] [place] 67 REPORT TYPE: PULMONARY FUNCTION REPORT SEX: F ADMITTING PHYSICIAN:Delmy Ashton MD ATTENDING PHYSICIAN:Adonis Gaytan MD STUDY DATE: 06/27/2022 FULL PULMONARY FUNCTION TEST INTERPRETATION SPIROMETRY: FVC is 42% of predicted. FEV1 is 41% of predicted. Ratio is 74. No response to bronchodilator. TLC is 44%. Diffu chelo capacity 39%. FULL PULMONARY FUNCTION TEST: Restrictiv e impairment, likely interstitial lung disease. Clinical correlation is recommended. Dictated By: Yonathan Leigh MD Date Dictated: 06/27/2022 10:22:12 Date Transcribed: 06/27/2022 10:41:28 /ARACELI Receipt ID: [id number] Authenticated by YONATHAN LEIGH MD On 07/06/2022 11:09:22 AM Electronically Signed by Yonathan Leigh MD on at 1109 PATIENT NAME: MESERET MOTTA [id number] 08:07:00-00:00 [facility] ([facility]) Cardiology Progress Note REPORT#:[id number] REPORT STATUS: Signed DATE:06/27/22 TIME: 08 PATIENT: MESERET MOTTA UNIT #: [id number] ROOM/BED: [place] [address] : 56 AGE: 67 SEX: F ATTEND: Skye Johnson ADM AUTHOR: Sabrina Tirado INDUSTRIAL RELATIONS DIRECTOR * ALL edits or amendments must be made on the Summay/computer document * Sabrina Tirado 06/27/22 0807: Subjective Chief complaint: No change Objective General VS/I O: Laboratory Tests 06/27/22 0800: [Embedded Image Not Available] 06/27/22 0605: [Embedded Image Not Available] 06/26/22 0427: [Embedded Image Not Available] Current Medications Sig/Enedina Start time Last Medication Dose Route Stop Time Status Admin Sodium Chloride 1,000 ML .[id number] ONE 06/27 1800 AC IV 06/28 0719 Verapamil HCl 0 .STK-MED ONE 06/27 0952 DC IV Nitroglycerin/ 250 ML .STK-MED ONE 06/27 0945 DC Dextrose IV Heparin Sodium 0 .STK-MED ONE 06/27 0940 DC .ROUTE Heparin Sodium/ 1,000 ML .STK-MED ONE 06/27 0940 DC Sodium Chloride IV Heparin Sodium/ 500 ML .STK-MED ONE 06/27 0940 D C Sodium Chloride IV Lidocaine HCl 0 .STK-MED ONE 06/27 0940 DC .ROUTE Aspirin 0 .STK-MED ONE 06/27 0839 DC PO Aspirin 0 .STK-MED ONE 06/27 0832 DC .ROUTE Clopidogrel 0 .STK-MED ONE 06/27 08 DC Bisulfate .ROUTE Metoprolol Tartrate 0 .STK-MED ONE 06/27 0832 DC .ROUTE Ampicillin Sodium/ 3 GM 1800 06/26 1800 AC Sulbactam Sodium IV 07/03 1759 Sodium Chloride 100 ML Atropine Sulfate 0.5 MG ASDIR PRN 06/26 1800 AC IV 06/27 1750 Sodium Chloride 500 ML ASDIR PRN 06/26 1800 AC IV 06/27 1750 Clopidogrel 0 .STK-MED ONE 06/26 1746 DC 06/26 Bisulfate .ROUTE 1759 Verapamil HCl 0 .STK-MED ONE 06/26 1620 DC 06/26 IV 1759 Heparin Sodium/ 500 ML .STK-MED ONE 06/26 1604 D C 06/26 Sodium Chloride IV 1759 Fentanyl Citrate 0 .STK-MED ONE 06/26 1455 DC .ROUTE 1528 Midazolam HCl 0 .STK-MED ONE 06/26 1455 DC 06/08 9 .ROUTE 1528 Heparin Sodium/ 1,000 ML .STK-MED ONE 06/26 1410 DC 06/26 Sodium Chloride IV 1528 Lidocaine HCl 0 .STK-MED ONE 06/26 1410 DC 06/26 .ROUTE 1528 Sevelamer Carbonate 3,200 MG C MEALS 06/26 0800 AC PO 07/26 0759 Epoetin Vanesa-epbx 6,000 UNIT TuThSa@2100 06/24 2 100 AC 06/24 SUBQ 07/24 Clopidogrel 75 MG DAILY 06/23 1800 AC 06/27 Bisulfate PO 07/23 175 0841 Mupirocin 1 APPLIC BID 06/23 1800 AC 06/26 TOPICAL 06/28 1759 2226 Calcitriol 0.5 MCG DAILY 06/23 0900 AC 06/26 PO 07/23 0859 0855 Midodrine 5 MG 0900,1300,1700 06/23 0900 AC 06/09 0 PO 07/23 0859 0948 Levothyroxine Sodium 150 MCG DAILY 0600 06/23 06 00 AC 06/27 PO 07/23 0559 0556 Buspirone HCl 5 MG BID 06/22 2100 AC 06/26 PO 07/22 2058 2226 Metoprolol Tartrate 12.5 MG Q12HR 06/22 2100 AC 06/27 PO 07/22 2058 0841 Pantoprazole 40 MG 0600,1800 06/22 1800 AC 06/27 PO 07/22 175 0556 Midodrine 10 MG DIALYSIS-DOSE 06/22 1545 CKD BEFORE PO 07/22 1544 1856 Albumin Human 12.5 GM ASDIR PRN 06/22 1530 AC IV 07/23 1529 1945 Heparin Sodium 3,000 UNIT ASDIR PRN 06/22 1530 A C 06/26 (Porcine) DIALYSIS 07/22 1529 2040 Lidocaine HCl 0.5 ML ASDIR PRN 06/22 1530 CKD I-DERMAL 07/23 1529 Mannitol 12.5 GM ASDIR PRN 06/22 1530 AC IV 07/23 1529 Sodium Chloride 2,000 ML ASDIR PRN 06/22 1530 AC 06/26 IV 07/23 1529 1912 Sodium Chloride 5 ML ASDIR PRN 06/22 1530 AC IV 07/22 1529 Sodium Chloride 10 ML ASDIR PRN 06/22 1530 AC 1 08/27 IV 07/22 1529 1915 Sodium Chloride 250 ML ASDIR PRN 06/22 1530 AC IV 07/22 1529 Aspirin 81 MG C BK 06/22 0800 AC 06/27 PO 07/22 0759 0840 Atorvastatin Calcium 40 MG 2100 06/21 2100 AC PO 07/21 2059 2226 Insulin Human Lispro 0 AC HS 06/21 2100 AC 06/25 SUBQ 07/21 205 1726 Dextrose/Water 125 ML ASDIR PRN 06/21 1900 CKD IV 07/21 1859 Dextrose/Water 250 ML ASDIR PRN 06/21 1900 CKD IV 07/21 1859 Glucagon 1 MG ASDIR PRN 06/21 1900 AC IM 07/21 1859 Melatonin 3 MG BEDTIME PRN PRN 06/21 1900 AC PO 07/21 1859 0102 Morphine Sulfate 2 MG Q4H PRN PRN 06/21 1900 DC 06/25 IV 06/26 1859 2326 Tramadol HCl 50 MG Q6H PRN PRN 06/21 1900 DC PO 06/26 1859 1858 Acetaminophen 650 MG Q4H PRN PRN 06/21 1730 AC 1 08/24 PO 07/21 1729 0828 Heparin Sodium 5,000 UNIT ASDIR PRN 06/21 1730 A C 06/22 IV 07/21 1729 1449 Nitroglycerin 0.4 MG Q5M PRN PRN 06/21 1730 AC SL 07/21 1729 Ondansetron HCl 4 MG Q6H PRN PRN 06/21 1730 AC 06/24 IV 07/21 1729 2213 24 hour I O ending at 0700: 06/27 0700 06/26 1900 Intake Total 410.00 Output Total 1000 Balance -590.00 Intake, IV 10.00 Intake, Oral 400 Number 0 Bowel Movements Number Voids 1 Output, 1000 Hemodialysis Output, Stool 0 Vital Signs: Date Time Temp Pulse Resp B/P B/P Pulse O2 O2 F low FiO2 Mean Ox Delivery Rate 06/27 08 36.4 82 16 125/76 92.2 99 Nasal 3 cannula 06/27 0441 36.4 75 16 125/76 92.0 97 Nasal cannula 06/26 2327 36.3 91 18 146/65 92.1 96 Nasal cannula 12/19 2128 36.6 72 19 108/59 97 Nasal 3 cannula 06/26 2000 Nasal 4 cannula 06/26 1906 36.4 76 18 101/66 0.0 97 Nasal cannula 06/26 1820 36.5 84 20 130/74 97 Nasal 3 cannula PATIENT WEIGHT: Weight (lb): 245 Weight (oz): 9.52 Weight (kg): 111.13 Physical Exam General appearance: alert, awake, oriented, no a cute distress Neck: non-tender, no JVD Cardiovascular: CV assessment: regular rate and rhythm Respiratory: decreased breath sounds, on oxygen, no distress Abdomen: non-tender, obese Genitourinary: no flank pain, no urinary cathete r Lower extremity: LE assessment: abnormal capillary refill, abnor mal temperature, edema, abnormal pedal pulse Musculoskeletal: normal inspection Neuro/SURGICAL SPECIALIST: alert, oriented X 3, normal speech Skin: scabs lower extremities Ulcer: Type/cause: diabetic, arterial Location: foot (bilateral toes) Psychiatry: normal affect, normal mood Diagnosis, Assessment Plan Consultants: cardiology, cardiovascular surgery, nephrology, wound care Free Text DxA P Notes Free Text DxA P Notes: 67 YO female with PMHx of HTN, DM, CHF, ESRD on HD who initially presented at [facility] with SOB and fatigue. Sh regan was treated for NSTEMI and acute CHF exacerbation. 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 She is transferred her for CABG evaluation. Echo showed LVEF 50%. Cardiolology is consulted for continuity of cardiac-related care . 1. NSTEMI/Multivessel CAD continue ASA, statin, plavix, bb STS risk score 17%, too high risk for CABG. continue with medical therapy- plans for pPCI to day 2. Acute on chronic Diastolic CHF volume management per nephrology echo from OSH LVEF 50% 3. ESRD on HD per nephrology 4. Diabetes mellitus per admitting team 5. Hypertension BP soft but holding continue low-dose beta-susan for CAD 6. Toe ulcers/severe PAD LE arterial doppler - severe PAD s/p MORPHOLOGIST and atherectomy with CSI followed by MORPHOLOGIST with TAVR balloon on left anterior and posterior tibial artery ORE ROASTER of right anterior/posterior tibial artery- w ill need staged intervention continue supportive care Herson Tang 06/27/22 8883: Attestations Physician Attestation Agree w/findings plan: I Agree with the findings and plan as documented by Sabrina Tirado. I did PCI to LCx with 2.25 x 20 mm and post dilated with 2.5 NC ballon. Chanage Plavix to Brilinta, Electronically Signed by Sabrina Tirado INDUSTRIAL RELATIONS DIRECTOR on 1 08/28/21 at 1437 Electronically Signed by Herson Tang MD on at 2348 RPT #:[id number] END OF REPORT 2022-06-27 07:49:00-00:00 [facility] ([facility]) Nephrology Progress Note REPORT#:[id number] REPORT STATUS: Signed DATE:06/27/22 TIME: 748 PATIENT: MESERET MOTTA UNIT #: [id number] ROOM/BED: [id number] : 56 AGE: 67 SEX: F ATTEND: Nidhi Ashton MD ADM AUTHOR: Jennifer Shelton MD * ALL edits or amendments must be made on the Summay/computer document * Subjective Chief complaint: Transferred for CABG HPI: Patient seen and evaluated, discussed with care team, 67-year-old female with history of end-stage renal d isease on chronic hemodialysis Sunday, and Sunday, diabetes mellitus, peripheral arterial disease and hypertension who was transferred to [facility] for CABG. Terrence quevedo initially presented to [facility] in [place] compl aining of shortness of breath. Underwent left heart cath which showed diffuse di sease and patient was transferred for evaluation for CABG. renal consult was requ ested for management of her end-stage renal disease/ hemodialysis. Patient reports: Yes: complaints. Comments: Patient seen and evaluated, HPI no change from i nitial, feels okay. Review of Systems Constitutional: Reports: fatigue. Denies: chills, fever. Skin: Denies: abrasion, bruising. Allergy/Immun: Denies: hives, itching. Eyes: Denies: redness, discharge. ENT: Denies: ear drainage, ear ringing. Respiratory: Denies: hemoptysis, SOB. Cardiovascular: Denies: chest pain. Objective General VS/I O: Vital Signs: Date Time Temp Pulse Resp B/P B/P Pulse O2 O2 F low FiO2 Mean Ox Delivery Rate 06/27 0441 36.4 75 16 125/76 92.0 97 Nasal cannula 06/26 2327 36.3 91 18 146/65 92.1 96 Nasal cannula 06/268 36.6 72 19 108/59 97 Nasal 3 cannula 06/26 2000 Nasal 4 cannula 06/26 1906 36.4 76 18 101/66 0.0 97 Nasal cannula 06/26 1820 36.5 84 20 130/74 97 Nasal 3 cannula 06/26 1144 36.7 73 18 103/65 77.5 98 Nasal cannula 06/26 1123 96 Nasal 4 cannula 24 hour I O ending at 0700: 06/27 0700 06/26 1900 Intake Total 410.00 Output Total 1000 Balance -590.00 Intake, IV 10.00 Intake, Oral 400 Number 0 Bowel Movements Number Voids 1 Output, 1000 Hemodialysis Output, Stool 0 PATIENT WEIGHT: Weight (lb): 245 Weight (oz): 9.52 Weight (kg): 111.13 Medications Active Meds + DC'd Last 24 Hrs Sodium Chloride (SODIUM CHLORIDE 0.9%) 1,000 ML .[id number] ONE IV Ampicillin Sodium/Sulbactam Sodium (UNASYN 3GM) 3 GM 1800 IV Sodium Chloride (SODIUM CHLORIDE 0.9% 100 ML) 1 00 ML Atropine Sulfate (ATROPINE SULFATE 0.1MG/ML SYR) 0.5 MG ASDIR PRN IV Sodium Chloride (SODIUM CHLORIDE 0.9%) 500 ML DIR PRN IV Clopidogrel Bisulfate (Plavix) 0 .STK-MED ONE .R OUTE (DC) Verapamil HCl (ISOPTIN) 0 .STK-MED ONE IV (DC) Heparin Sodium/Sodium Chloride (HEPARIN 1,000 UN ITS/NS 500ML) 500 ML .STK- MED ONE IV (DC) Fentanyl Citrate (SUBLIMAZE) 0 .STK-MED ONE .ROU TE (DC) Midazolam HCl (VERSED) 0 .STK-MED ONE .ROUTE (DC ) Heparin Sodium/Sodium Chloride (HEPARIN 1,000 UN ITS/NS 500ML) 1,000 ML .STK- MED ONE IV (DC) Lidocaine HCl (LIDOCAINE HCL/PF) 0 .STK-MED ONE .ROUTE (DC) Sevelamer Carbonate (RENVELA) 3,200 MG C MEALS P O Epoetin Vanesa-epbx (RETACRIT) 6,000 UNIT TuThSa@2 100 SUBQ Sevelamer Carbonate (RENVELA) 1,600 MG C MEALS P O (DC) Clopidogrel Bisulfate (Plavix) 75 MG DAILY PO Mupirocin (BACTROBAN 2% 22 GM OINTMENT) 1 APPLIC BID TOPICAL Ceftriaxone Sodium (ROCEPHIN 1000MG VIAL) 1,000 MG Q24H IV (DC) Sodium Chloride (SODIUM CHLORIDE) 10 ML Calcitriol (RocaltroL) 0.5 MCG DAILY PO Midodrine (PROAMATINE) 5 MG 0900,1300,1700 PO Levothyroxine Sodium (LEVOTHYROXINE SODIUM) 150 MCG DAILY 0600 PO Buspirone HCl (BUSPAR) 5 MG BID PO Metoprolol Tartrate (LOPRESSOR) 12.5 MG Q12HR PO Pantoprazole (PROTONIX) 40 MG 0600,1800 PO Midodrine (PROAMATINE) 10 MG DIALYSIS-DOSE BEFOR E PO (CKD) Albumin Human (ALBUMINAR-25%) 12.5 GM ASDIR PRN IV Heparin Sodium (Porcine) (HEPARIN SODIUM) 3,000 UNIT ASDIR PRN DIALYSIS Lidocaine HCl (LIDOCAINE HCL/PF) 0.5 ML ASDIR DC N I-DERMAL (CKD) Mannitol (MANNITOL 25% 12.5GM/50ML) 12.5 GM ASDI R PRN IV Sodium Chloride (SODIUM CHLORIDE 0.9%) 2,000 ML ASDIR PRN IV Sodium Chloride (SODIUM CHLORIDE) 5 ML ASDIR PRN IV Sodium Chloride (SODIUM CHLORIDE) 10 ML ASDIR DC N IV Sodium Chloride (SODIUM CHLORIDE 0.9%) 250 ML DIR PRN IV Aspirin (ASPIRIN) 81 MG C BK PO Atorvastatin Calcium (LIPITOR) 40 MG 2100 PO Insulin Human Lispro (HUMALOG) 0 AC HS SUBQ Dextrose/Water (DEXTROSE 10% IN WATER) 125 ML DIR PRN IV (CKD) Dextrose/Water (DEXTROSE 10% IN WATER) 250 ML A SDIR PRN IV (CKD) Glucagon (GLUCAGON) 1 MG ASDIR PRN IM Melatonin (Melatonin) 3 MG BEDTIME PRN PRN PO Morphine Sulfate (morphine SULFATE) 2 MG Q4H DC N PRN IV (DC) Tramadol HCl (ULTRAM) 50 MG Q6H PRN PRN PO (DC) Acetaminophen (TYLENOL) 650 MG Q4H PRN PRN PO Heparin Sodium (HEPARIN 5000 UNITS/ML) 5,000 UNI T ASDIR PRN IV Nitroglycerin (NITROSTAT) 0.4 MG Q5M PRN PRN SL Ondansetron HCl (ZOFRAN) 4 MG Q6H PRN PRN IV Physical Exam General appearance: alert, no acute distress Head/eyes: atraumatic, normocephalic ENT: normal nose Neck: non-tender, supple/no meningismus Cardiovascular: normal heart sounds, no rub Respiratory: aerating well, symmetric expansion Abdomen: non-tender, soft Genitourinary: no flank pain Extremities: pitting edema, non-tender Musculoskeletal: no CVA tenderness, no tendernes s Neuro/SURGICAL SPECIALIST: alert, normal speech Skin: dry, intact Ulcer: Type/cause: diabetic, arterial Location: foot (bilateral toes) Results Findings/Data: Laboratory Tests 06/27 06/26 06/26 06/26 06/26 0442 1928 1400 1141 0720 Chemistry POC Glucose (70 - 110 MG/DL) 170 H 143 H 192 H 215 H 220 H 06/26 06/26 06/25 06/25 06/25 0616 0427 1932 1530 1057 Chemistry Sodium (134 - 147 mEq/L) 137 Potassium (3.4 - 5.0 mEq/L) 4.4 Chloride (100 - 108 mEq/L) 98 L Carbon Dioxide (21 - 33 mEq/l) 22 Anion Gap (0 - 20) 21 H BUN (7 - 18 mg/dL) 39 H Creatinine (0.6 - 1.3 mg/dL) 5.4 H Glomerular Filtr Rate (80 - 90) 8.2 L Glucose (70 - 110 mg/dL) 201 H POC Glucose (70 - 110 MG/DL) 214 H 198 H 189 H 186 H Calcium (8.0 - 10.5 mg/dL) 9.9 Phosphorus (2.5 - 4.9 MG/DL) 6.8 H Magnesium (1.80 - 2.40 mg/dL) 2.24 Total Bilirubin (0.0 - 1.0 mg/dL) 0.50 AST (15 - 37 IUnit/L) 18 ALT (30 - 65 IUnit/L) 66 H Total Alk Phosphatase (20 - 125 IUnit/L) 241 H Total Protein (6.4 - 8.2 g/dL) 6.7 Albumin (3.4 - 5.0 g/dL) 3.50 06/25 06/25 06/24 06/24 06/24 0623 0541 1858 1523 1242 Chemistry Sodium (134 - 147 mEq/L) 137 Potassium (3.4 - 5.0 mEq/L) 4.3 Chloride (100 - 108 mEq/L) 97 L Carbon Dioxide (21 - 33 mEq/l) 25 Anion Gap (0 - 20) 19 BUN (7 - 18 mg/dL) 31 H Creatinine (0.6 - 1.3 mg/dL) 4.5 H Glomerular Filtr Rate (80 - 90) 10.2 L Glucose (70 - 110 mg/dL) 169 H POC Glucose (70 - 110 MG/DL) 159 H 171 H 159 H 110 Calcium (8.0 - 10.5 mg/dL) 9.5 Total Bilirubin (0.0 - 1.0 mg/dL) 0.50 AST (15 - 37 IUnit/L) 22 ALT (30 - 65 IUnit/L) 79 H Total Alk Phosphatase (20 - 125 IUnit/L) 272 H Total Protein (6.4 - 8.2 g/dL) 6.5 Albumin (3.4 - 5.0 g/dL) 3.30 L Laboratory Tests 06/26 06/26 06/26 06/26 1715 1648 1627 1605 Coagulation Activated Coag Time (74 - 137 SEC) 275 H 245 23 4 251 H Laboratory Tests 06/26 06/25 0427 1035 Hematology WBC (4.5 - 11.0 x10 3/uL) 14.0 H 12.8 H RBC (3.54 - 5.02 x10 6/uL) 3.18 L 2.93 L Hgb (11.0 - 15.0 g/dL) 9.8 L 9.2 L Hct (33.0 - 45.0 %) 33.6 30.5 L MCV (81.0 - 99.0 fL) 105.7 H 104.1 H MCH (27.0 - 33.0 pg) 30.8 31.4 MCHC (33.0 - 37.0 g/dL) 29.2 L 30.2 L RDW (11.5 - 14.5 %) 15.8 H 15.9 H Plt Count (150 - 400 x10 3/uL) 145 L 134 L MPV (7.0 - 9.0 fL) 9.9 H 9.7 H Neut % (Auto) (56.0 - 77.0 %) 81.7 H 84.6 H Lymph % (Auto) (14.0 - 32.0 %) 6.2 L 5.1 L Kerr % (Auto) (4.8 - 9.0 %) 10.3 H 8.3 Eos % (Auto) (0.3 - 3.7 %) 1.3 1.5 Baso % (Auto) (0.0 - 2.0 %) 0.1 0.1 Neut # (Auto) (2.0 - 7.6 x10 3/uL) 11.42 H 10.8 4 H Lymph # (Auto) (1.0 - 3.8 x10 3/uL) 0.87 L 0.65 L Kerr # (Auto) (0.1 - 0.8 x10 3/uL) 1.44 H 1.06 H Eos # (Auto) (0.0 - 0.2 x10 3/uL) 0.18 0.19 Baso # (Auto) (0.0 - 0.2 x10 3/uL) 0.02 0.01 Abs Immat Gran (auto) (0.00 - 0.03 x10 3/uL) 0. 06 H 0.05 H Add Manual Diff NO NO Immature Gran % (0.0 - 2.0 %) 0.4 0.4 Nucleated RBC % (0 - 0 %) 0.0 0.0 Nucleated RBCs # (Man) (0.0 - 0.1 x10 3/uL) 0.0 0 0.00 Anisocytosis SLIGHT Macrocytosis FEW Laboratory Tests 06/26 1003 Serology SARS-CoV-2 Ag (Rapid) (Negative) Negative Recent Impressions: RADIOLOGY - XR FOOT 3 + V LT 06/25 1610 Report Impression - Status: SIGNED Entered: 06/26/2022 0842 IMPRESSION: Soft tissue swelling is seen about the left foot and ankle. Moderate calcaneal spurring at the Achilles tend on and plantar fascia tendon insertion sites. There appears to be prior deformity of the mid shaft to head of the left 1st proxima l phalanx. Mild degenerative changes about the left 1st interpha langeal joint and slight degenerative changes about the left 1st m etatarsophalangeal joint. No acute fracture or dislocation. No plai n film evidence of osteomyelitis. Impression By: [email or web address] - Jett Mosher M.D. Laboratory Tests 06/27 06/26 06/26 06/26 0442 1928 1400 1141 Chemistry POC Glucose (70 - 110 MG/DL) 170 H 143 H 192 H 215 H Laboratory Tests 06/26 06/26 06/26 06/26 1715 1648 1627 1605 Coagulation Activated Coag Time (74 - 137 SEC) 275 H 245 23 4 251 H Laboratory Tests 06/26 1003 Serology SARS-CoV-2 Ag (Rapid) (Negative) Negative Diagnosis, Assessment Plan Free Text A P: Patient seen and evaluated, discussed with care team, images and laboratories reviewed. End-stage renal disease on c hronic hemodialysis, Sunday, and Sunday, plan for hemodialysis today Status post left heart cath with multi-vessel co ronary artery disease, respiratory evaluation for CABG. Hypertension: Monitor blood pressure closely and adjust medications as needed Hyperlipidemia: Lipitor Diabetes mellitus: Insulin: Monitor blood sugar closely adjust medications as needed Anemia: We will start Epogen 4000 subcu 3 times a week Elevated alkaline phosphatase we will check PTH. 06/23/2022 plan for filtration today if her bloo d pressure allows, had hemodialysis yesterday. See showed hemoglobin 9. 1, platelet 136, blood count 12.1. We will increase Epoge n to 6000 subcu 3 times a week, PTH 660 we will add Rocaltrol 0.5 mcg p.o. daily, will add midodrine 5 mg p.o. 3 times daily to allow for ultrafiltration. 06/24/2022 laboratory for th is morning showed sodium 136, potassium 4.9, CO2 23, BUN 50, creatinine 5.8, phos phorus 7.1 we will add Renvela 2 p.o. with each meal , hemoglobin 9.3, platelet 152, blood count 13.3 , for hemodialysis today, 4 hours, 2K, ultrafiltration 3 to 4 L if tolerated , seen during HD. 06/25/2022 laboratory this m orning showed sodium 137, potassium 4.3, CO2 25, BUN 31, creatinine 4.5, alkaline phosphatase 272, st atus post ultrafiltration yesterday, 3.9 L removed, plan for dialysis in t he morning. 06/26/2022 laboratory this [facility] showed sodium 137, potassium 4.4, CO2 22, BUN 39, creatinine 5.4, hemoglob in 9.8, platelet 145, blood count 14, phosphorus 6.8 we will increase Renvela to 4 p.o. with each meal, plan for hemodialysis today, 4 hours, 3K, ultrafiltration 3 to 4 L if tolerat ed 06/27/2022 status post peripheral angiogram/inte rvention yesterday, only had less than 2 hours of dialysis yesterday due to hypotension postprocedure, will plan on hemodialysis today, 4 hours, 3K, ultrafiltration 3 to 4 L if tolerated Consultants: cardiology, cardiovascular surgery, nephrology, wound care Electronically Signed by Jennifer Shelton MD on at 1044 RPT #:[id number] END OF REPORT 2022-06-27 07:34:00-00:00 [facility] Hospitalist Progress Note REPORT#:[id number] REPORT STATUS: Signed DATE:06/27/22 TIME: 733 PATIENT: MESERET MOTTA UNIT #: [id number] ROOM/BED: [place] [address] : 56 AGE: 67 SEX: F ATTEND: Nidhi Ashton MD ADM AUTHOR: Skye Johnson MD * ALL edits or amendments must be made on the Sum[employer]/computer document * Subjective Chief complaint: Status post MORPHOLOGIST and atherect waldo with CSI followed by MORPHOLOGIST with stable balloon on left anterior and posterior tibial artery, for r ight anterior and posterior tibial artery Will need staged intervention as p er cardiology. PCI today. Blood culture pending, await ing PT/OT eval, A1c, LDL pending, on 4 L oxygen via nasal cannula, patient needs to be evalu ated once medically stable and cleared for home oxygen. Plan for hemodialysis after PCI today. Patient had dialysis yesterday. Objective General VS/I O: Vital Signs: Date Time Temp Pulse Resp B/P B/P Pulse O2 O2 F low FiO2 Mean Ox Delivery Rate 06/27 0808 97.5 82 16 125/76 92.2 99 Nasal 3 cannula 06/27 0441 97.5 75 16 125/76 92.0 97 Nasal cannula 06/26 2327 97.3 91 18 146/65 92.1 96 Nasal cannula 06/268 97.8 72 19 108/59 97 Nasal 3 cannula 06/26 2000 Nasal 4 cannula 06/26 190 97.5 76 18 101/66 0.0 97 Nasal cannula 06/26 1820 97.7 84 20 130/74 97 Nasal 3 cannula 24 hour I O ending at 0700: 06/27 0700 06/26 1900 Intake Total 410.00 Output Total 1000 Balance -590.00 Intake, IV 10.00 Intake, Oral 400 Number 0 Bowel Movements Number Voids 1 Output, 1000 Hemodialysis Output, Stool 0 PATIENT WEIGHT: Weight (lb): 245 Weight (oz): 9.52 Weight (kg): 111.13 Medications: Active Meds + DC'd Last 24 Hrs Sodium Chloride (SODIUM CHLORIDE 0.9%) 1,000 ML .[id number] ONE IV Fentanyl Citrate (SUBLIMAZE) 0 .STK-MED ONE .ROU TE (DC) Midazolam HCl (VERSED) 0 .STK-MED ONE .ROUTE (DC ) Acetaminophen (TYLENOL) 0 .STK-MED ONE .ROUTE (D C) Verapamil HCl (ISOPTIN) 0 .STK-MED ONE IV (DC) Nitroglycerin/Dextrose (NITROGLYCERIN 50,000MCG/ D5W 250ML) 250 ML .STK-MED ONE IV (DC) Heparin Sodium (HEPARIN SODIUM) 0 .STK-MED ONE . ROUTE (DC) Heparin Sodium/Sodium Chloride (HEPARIN 2,000 UN ITS/NS 1,000mL) 1,000 ML .STK-MED ONE IV (DC) Heparin Sodium/Sodium Chloride (HEPARIN 1,000 UN ITS/NS 500ML) 500 ML .STK- MED ONE IV (DC) Lidocaine HCl (LIDOCAINE HCL/PF) 0 .STK-MED ONE .ROUTE (DC) Aspirin (ASPIRIN) 0 .STK-MED ONE PO (DC) Aspirin (ASPIRIN) 0 .STK-MED ONE .ROUTE (DC) Clopidogrel Bisulfate (Plavix) 0 .STK-MED ONE .R OUTE (DC) Metoprolol Tartrate (LOPRESSOR) 0 .STK-MED ONE . ROUTE (DC) Ampicillin Sodium/Sulbactam Sodium (UNASYN 3GM) 3 GM 1800 IV Sodium Chloride (SODIUM CHLORIDE 0.9% 100 ML) 1 00 ML Atropine Sulfate (ATROPINE SULFATE 0.1MG/ML SYR) 0.5 MG ASDIR PRN IV Sodium Chloride (SODIUM CHLORIDE 0.9%) 500 ML DIR PRN IV Clopidogrel Bisulfate (Plavix) 0 .STK-MED ONE .R OUTE (DC) Verapamil HCl (ISOPTIN) 0 .STK-MED ONE IV (DC) Heparin Sodium/Sodium Chloride (HEPARIN 1,000 UN ITS/NS 500ML) 500 ML .STK- MED ONE IV (DC) Fentanyl Citrate (SUBLIMAZE) 0 .STK-MED ONE .ROU TE (DC) Midazolam HCl (VERSED) 0 .STK-MED ONE .ROUTE (DC ) Sevelamer Carbonate (RENVELA) 3,200 MG C MEALS P O Epoetin Vanesa-epbx (RETACRIT) 6,000 UNIT TuThSa@2 100 SUBQ Clopidogrel Bisulfate (Plavix) 75 MG DAILY PO Mupirocin (BACTROBAN 2% 22 GM OINTMENT) 1 APPLIC BID TOPICAL Calcitriol (RocaltroL) 0.5 MCG DAILY PO Midodrine (PROAMATINE) 5 MG 0900,1300,1700 PO Levothyroxine Sodium (LEVOTHYROXINE SODIUM) 150 MCG DAILY 0600 PO Buspirone HCl (BUSPAR) 5 MG BID PO Metoprolol Tartrate (LOPRESSOR) 12.5 MG Q12HR PO Pantoprazole (PROTONIX) 40 MG 0600,1800 PO Midodrine (PROAMATINE) 10 MG DIALYSIS-DOSE BEFOR E PO (CKD) Albumin Human (ALBUMINAR-25%) 12.5 GM ASDIR PRN IV Heparin Sodium (Porcine) (HEPARIN SODIUM) 3,000 UNIT ASDIR PRN DIALYSIS Lidocaine HCl (LIDOCAINE HCL/PF) 0.5 ML ASDIR DC N I-DERMAL (CKD) Mannitol (MANNITOL 25% 12.5GM/50ML) 12.5 GM ASDI R PRN IV Sodium Chloride (SODIUM CHLORIDE 0.9%) 2,000 ML ASDIR PRN IV Sodium Chloride (SODIUM CHLORIDE) 5 ML ASDIR PRN IV Sodium Chloride (SODIUM CHLORIDE) 10 ML ASDIR DC N IV Sodium Chloride (SODIUM CHLORIDE 0.9%) 250 ML DIR PRN IV Aspirin (ASPIRIN) 81 MG C BK PO Atorvastatin Calcium (LIPITOR) 40 MG 2100 PO Insulin Human Lispro (HUMALOG) 0 AC HS SUBQ Dextrose/Water (DEXTROSE 10% IN WATER) 125 ML DIR PRN IV (CKD) Dextrose/Water (DEXTROSE 10% IN WATER) 250 ML DIR PRN IV (CKD) Glucagon (GLUCAGON) 1 MG ASDIR PRN IM Melatonin (Melatonin) 3 MG BEDTIME PRN PRN PO Morphine Sulfate (morphine SULFATE) 2 MG Q4H PRN PRN IV (DC) Tramadol HCl (ULTRAM) 50 MG Q6H PRN PRN PO (DC) Acetaminophen (TYLENOL) 650 MG Q4H PRN PRN PO Heparin Sodium (HEPARIN 5000 UNITS/ML) 5,000 UNI T ASDIR PRN IV Nitroglycerin (NITROSTAT) 0.4 MG Q5M PRN PRN SL Ondansetron HCl (ZOFRAN) 4 MG Q6H PRN PRN IV Physical Exam General appearance: alert, awake, oriented Head/Eyes: atraumatic, clear cornea, EOMI, kristopher l conjunctiva/sclera, PERRLA ENT: moist mucosal membranes Neck: supple/no meningismus, no JVD Cardiovascular: normal heart sounds, regular rat e rhythm, no murmur Respiratory: aerating well, clear to auscultatio n, symmetric expansion Abdomen: non-tender, normal bowel sounds, soft, no distention Extremities: edema, moves all Neuro/SURGICAL SPECIALIST: alert, oriented X 3, normal speech, n o motor deficits Ulcer: Type/cause: diabetic, arterial Location: foot (bilateral toes) Psychiatry: normal affect Results Findings/Data: Laboratory Tests 06/27 06/27 06/27 06/27 06/26 0825 0800 0605 0442 1928 Chemistry Sodium (134 - 147 mEq/L) 136 Potassium (3.4 - 5.0 mEq/L) 4.5 Chloride (100 - 108 mEq/L) 98 L Carbon Dioxide (21 - 33 mEq/l) 25 Anion Gap (0 - 20) 18 BUN (7 - 18 mg/dL) 34 H Creatinine (0.6 - 1.3 mg/dL) 4.9 H Glomerular Filtr Rate (80 - 90) 9.2 L Glucose (70 - 110 mg/dL) 169 H POC Glucose (70 - 110 MG/DL) 171 H 170 H 143 H Hemoglobin A1c (4.8 - 6.0 %A1C) 5.8 Calcium (8.0 - 10.5 mg/dL) 9.4 Laboratory Tests 06/26 06/26 06/26 06/26 1715 1648 1627 1605 Coagulation Activated Coag Time (74 - 137 SEC) 275 H 245 23 4 251 H Laboratory Tests 06/27 0800 Hematology WBC (4.5 - 11.0 x10 3/uL) 9.4 RBC (3.54 - 5.02 x10 6/uL) 2.83 L Hgb (11.0 - 15.0 g/dL) 8.6 L Hct (33.0 - 45.0 %) 29.2 L MCV (81.0 - 99.0 fL) 103.2 H MCH (27.0 - 33.0 pg) 30.4 MCHC (33.0 - 37.0 g/dL) 29.5 L RDW (11.5 - 14.5 %) 15.5 H Plt Count (150 - 400 x10 3/uL) 139 L MPV (7.0 - 9.0 fL) 9.7 H Neut % (Auto) (56.0 - 77.0 %) 82.6 H Lymph % (Auto) (14.0 - 32.0 %) 6.4 L Kerr % (Auto) (4.8 - 9.0 %) 8.8 Eos % (Auto) (0.3 - 3.7 %) 1.5 Baso % (Auto) (0.0 - 2.0 %) 0.1 Neut # (Auto) (2.0 - 7.6 x10 3/uL) 7.78 H Lymph # (Auto) (1.0 - 3.8 x10 3/uL) 0.60 L Kerr # (Auto) (0.1 - 0.8 x10 3/uL) 0.83 H Eos # (Auto) (0.0 - 0.2 x10 3/uL) 0.14 Baso # (Auto) (0.0 - 0.2 x10 3/uL) 0.01 Abs Immat Gran (auto) (0.00 - 0.03 x10 3/uL) 0. 06 H Add Manual Diff NO Immature Gran % (0.0 - 2.0 %) 0.6 Nucleated RBC % (0 - 0 %) 0.0 Nucleated RBCs # (Man) (0.0 - 0.1 x10 3/uL) 0.0 0 Diagnosis, Assessment Plan Consultants: cardiology, cardiovascular surgery, nephrology, wound care Free Text DxA P Notes Free text DxA P notes: Three-vessel coronary artery disease CV surgery following. Dopplers, alexandro duplex were ordered patient is off the heparin drip Continue on aspirin, Plavix, atorvastatin, meto prolol -echo from [facility] LVEF 50% cardiology seen -PCI today 06/27 Severe PAD/toe ulcer: Status post MORPHOLOGIST and atherec cheri with CSI followed by MORPHOLOGIST with stable balloon on left anterior and posterior tibial artery, for r ight anterior and posterior tibial artery Will need staged intervention as p er cardiology. 06/26 Acute respiratory failure with hypoxemia Patient presented with supplemental nasal cannu la oxygen -Secondary to pulmonary edema Patient needs to be evaluated for home oxygen o nce patient is medically cleared for discharge Leukocytosis: -CT chest result done -Afebrile -Patient has multiple ulcers in hands and feet. Wound cx growing ent fecalis, rocephin switched to unasyn -blood culture 06/26 (was not ordered on admissi on) pending End-stage renal disease on hemodialysis Patient is on a Sunday sched jaxon Banana Ripening Room Supervisor following Elevated LFTs Secondary to hepatic congestion Monitor LFTs Type 2 diabetes mellitus on insulin sliding scale Diabetic diet Hypothyroidism Resume Synthroid Anemia of chronic disease -Transfuse for Hb <7 -No bleeding hypotension on midodrine on empiric IV CTX check labs in am SCD for DVT prophylaxis. Disposition: Status post MORPHOLOGIST and atherectomy wit h CSI followed by MORPHOLOGIST with stable balloon on left anter ior and posterior tibial artery, for right anterior and posterior tibial artery Will need staged int ervention as per cardiology. PCI today. Blood culture yisel mccarty, awaiting PT/OT eval, A1c, LDL pending, on 4 L oxygen via nasal cannula, patient needs to be ev aluated once medically stable and cleared for home oxygen. Plan for hemodialys is after PCI today. Continue inpatient care. Quality: Gen Med Crit Care VTE Prophylaxis VTE prophylaxis initiated: yes Current Medications Current medication review: I attest that the foregoing medication list in t he medical record is true, accurate, and complete to the best of my knowled ge. Electronically Signed by Skye Johnson MD on 2 at 1423 [facility] #:[id number] END OF REPORT 2022-06-26 18:43:00-00:00 [id number] [place] [address] PATIENT NAME: MESERET MOTTA ADMIT DATE: 06/22 ACCOUNT NO: [id number] [place] [facility] [place] AGE: 67 REPORT TYPE: CARDIAC CATHETERIZATION REPORT SEX: F ADMITTING PHYSICIAN:Delmy Ashton MD ATTENDING PHYSICIAN:Adonis Gaytan MD PROCEDURE DATE: 06/26/2022 INDICATIONS FOR PROCEDURE: Multiple wounds in th e leg, rest pain, abnormal arterial Doppler. The patient was offered periph eral angiogram and possible intervention. Risks and benefits were explained to the patient. The patient agreed to proceed. PROCEDURES PERFORMED: 1. Aortogram. 2. Bilateral lower extremity angiogram. 3. Third order catheterization of the left SFA c oming up and over from the right common femoral artery. 4. Additional vessel angiogram of the left anter ior tibial artery. 5. MORPHOLOGIST and atherectomy of the left anter ior tibial artery using CSI 1.25 alejandra. 6. Moderate sedation. 7. Perclose closure device to the right common f emoral artery. DESCRIPTION OF PROCEDURE: After informed consent was obtained, the patient was brought into the labeler. The patient was prepp ed and draped in sterile fashion. Right common femora l artery was accessed using micropuncture technique under fluoroscopy guidance. Then, a 5-Nigerian she ath was inserted. Then I went up with a pigtail placed through the abdominal a delmis and I did abdominal aortogram. Then, I went up and over to t he left SFA using IM catheter and then I exchanged the IM catheter into angled glide catheter, 5-Nigerian, placed in the left SFA and I performed angiogram of the left l ower extremity. It showed moderate disease in the left SFA distally and left popliteal and 1-vessel runoff below the knee, the peroneal and she had ORE ROASTER of the left anterior tibial artery and the posterior tibial artery. I decided to in tervene on the left anterior tibial artery as will be flip cribed below. At the end of the intervention, I put a short 6-Nigerian sheath and I performed angiogram of the right lower extremity. At the end of the procedure, I closed the arteriotomy site with Perclose closure device with good hemostasis. FINDINGS: 1. Abdominal aorta, patent. 2. Iliac arteries, patent bilateral. 3. Renal arteries, patent bilateral. 4. External iliac arteries, patent bilateral. 5. Common femoral artery, patent bilaterally. 6. SFA patent on the right side and the left fabiano e distally has 40% lesion. 7. Popliteal artery on the left side has 40% les ion, eccentric, and the right side is patent. 8. Anterior tibial artery is ORE ROASTER in the left lower extremity, multiple segments PATIENT NAME: MESERET MOTTA [id number] of ORE ROASTER on the proximal, mid and distal o n the left side. On the right side, it appears to be ORE ROASTER as well as not well visualized on the right side. 9. Peroneal artery, patent bilateral. 10. Posterior tibial artery occluded bilaterally . DESCRIPTION OF PROCEDURE: I decided to intervene on the left anterior tibial artery. I went up with desti nation sheath 65 cm 6-Nigerian placed in the left SFA and I went up with Advantage wire 0.035 with Nishant iCross 150 cm angle tip and I advanced the NaviCross to the left popli teal artery distally. Then, I took the NaviCross and exchanged into a Runthrough wire a nd I was able to cross the proximal ORE ROASTER and mid ORE ROASTER, but I was not able to advance the wire to the distal anterior tibial arteries. I exchanged th e NaviCross to Teleport 0.014 catheter and with the support of the Teleport catheter, I was able to cross the distal tibia and advance the wire into the left dorsali s pedis. Then, I advanced my Teleport there and I performed angiogram distall y showed that there was intraluminal. At this time, I exchanged the Teleport over a FiberWire because I decided to do atherectomy and I went up with CSI 1.25 bur, Classic Shallowater and I did multiple runs in low and intermediate speed on the proximal anterior tibial artery, mid anterior tibial artery and distal an terior tibial artery. Then, I went up with tapered balloon 2.0 to 2.5 x 210 mm and I did balloon angioplasty of the left anterior tibial artery at nominal pr essure. I did pull back again and a did through the proximal segment at 11 gloria osphere. There was an area of under expansion at the mid a nd proximal anterior tibial artery. At this time, I decided to go with 2.5 x 100 mm AngioSculpt and I did prolonged balloon angioplasty at nominal pressure. I did final georgette t showed likely good results, but the patient keeps moving and he could not get good visualization of the left anterior tibial artery, so I went with the Kristin ross, placed it in the left anterior tibial artery, and I did angiog mitul of the left anterior tibial artery showed very good results. At this time, I perfor med pullback across the left popliteal as there was intermediate lesion and t he gradient across the left popliteal was only 10 mmHg. Then, I performed an other pullback across the SFA and was about 12 mmHg. Both lesions were not sig nificant. I obtained final shots showed good results. T hen the sheath was exchanged to a short sheath as I did dilated angiogram of the right lower extremi ty through the short 6-Nigerian sheath and then I secured th e arteriotomy site with Perclose closure device with good hemostasis achieved. IMPRESSION: 1. 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 2. 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 PLAN: Continue aspirin, Plavix, statin and lifes tyle modification. Dictated By: Herson Tang MD Date Dictated: 06/26/2022 18:43:43 Date Transcribed: 06/26/2022 20:24:11 JOSÉ MIGUEL/EJ PATIENT NAME: MESERET MOTTA [id number] Receipt ID: [id number] Authenticated by Herson Tang MD On 3 06:06:52 AM Electronically Signed by Herson Tang MD on 0 07/11/22 at 0606 PATIENT NAME: MESERET MOTTA [id number] 8280-12-19 13:54:00-00:00 [facility] Cardiology Progress Note REPORT#:[id number] REPORT STATUS: Signed DATE:06/26/22 TIME: 1354 PATIENT: MESERET MOTTA UNIT #: [id number] ROOM/BED: [place] [id number] : 56 AGE: 67 SEX: F ATTEND: Skye Johnson ADM AUTHOR: Sabrina Tirado INDUSTRIAL RELATIONS DIRECTOR * ALL edits or amendments must be made on the Summay/computer document * Sabrina Tirado 06/26/22 1354: Subjective Chief complaint: No change Objective General VS/I O: Laboratory Tests 06/26/22 0427: [Embedded Image Not Available] 06/25/22 1035: [Embedded Image Not Available] 06/25/22 0623: [Embedded Image Not Available] Current Medications Sig/Enedina Start time Last Medication Dose Route Stop Time Status Admin Ampicillin Sodium/ 3 GM 1800 06/26 1800 AC Sulbactam Sodium IV 07/03 1759 Sodium Chloride 100 ML Sevelamer Carbonate 3,200 MG C MEALS 06/26 0800 AC PO 07/26 0759 Sodium Chloride 1,000 ML .[id number] ONE 06/25 1800 DC 06/25 IV 06/26 0719 1822 Epoetin Vanesa-epbx 6,000 UNIT TuThSa@2100 06/24 2 100 AC 06/24 SUBQ 07/24 Sevelamer Carbonate 1,600 MG C MEALS 06/24 1200 DC 06/25 PO 07/24 1159 1725 Clopidogrel 75 MG DAILY 06/23 1800 AC 06/26 Bisulfate PO 07/23 1759 0854 Mupirocin 1 APPLIC BID 06/23 1800 AC 06/26 TOPICAL 06/28 1759 0857 Ceftriaxone Sodium 1,000 MG Q24H 06/23 1330 DC 06/25 Sodium Chloride 10 ML IV 06/30 1329 1330 Calcitriol 0.5 MCG DAILY 06/23 0900 AC 06/26 PO 07/23 0859 0855 Midodrine 5 MG 0900,1300,1700 06/23 0900 AC 06/08 9 PO 07/23 0859 0855 Levothyroxine Sodium 150 MCG DAILY 0600 06/23 06 00 AC 06/26 PO 07/23 0559 0417 Buspirone HCl 5 MG BID 06/22 2100 AC 06/26 PO 07/22 2058 0856 Metoprolol Tartrate 12.5 MG Q12HR 06/22 2100 AC 06/26 PO 07/22 2058 0855 Pantoprazole 40 MG 0600,1800 06/22 1800 AC 06/26 PO 07/22 175 0417 Midodrine 10 MG DIALYSIS-DOSE 06/22 1545 CKD BEFORE PO 07/22 1544 1314 Albumin Human 12.5 GM ASDIR PRN 06/22 1530 AC 1 08/23 IV 07/23 1529 1548 Heparin Sodium 3,000 UNIT ASDIR PRN 06/22 1530 A C 06/24 (Porcine) DIALYSIS 07/22 1529 0858 Lidocaine HCl 0.5 ML ASDIR PRN 06/22 1530 CKD I-DERMAL 07/23 1529 Mannitol 12.5 GM ASDIR PRN 06/22 1530 AC IV 07/23 1529 Sodium Chloride 2,000 ML ASDIR PRN 06/22 1530 A C 06/24 IV 07/23 1529 0857 Sodium Chloride 5 ML ASDIR PRN 06/22 1530 AC IV 07/22 1529 Sodium Chloride 10 ML ASDIR PRN 06/22 1530 AC IV 07/22 1529 0902 Sodium Chloride 250 ML ASDIR PRN 06/22 1530 AC IV 07/22 1529 Aspirin 81 MG C BK 06/22 0800 AC 06/26 PO 07/22 0759 0854 Atorvastatin Calcium 40 MG 2100 06/21 2100 AC PO 07/21 2058 203 Insulin Human Lispro 0 AC HS 06/21 2100 AC 06/08 8 SUBQ 07/21 2058 1726 Dextrose/Water 125 ML ASDIR PRN 06/21 1900 CKD IV 07/21 1859 Dextrose/Water 250 ML ASDIR PRN 06/21 1900 CKD IV 07/21 1859 Glucagon 1 MG ASDIR PRN 06/21 1900 AC IM 07/21 1859 Melatonin 3 MG BEDTIME PRN PRN 06/21 1900 AC PO 07/21 185 0102 Morphine Sulfate 2 MG Q4H PRN PRN 06/21 1900 AC 06/25 IV 06/26 185 2326 Tramadol HCl 50 MG Q6H PRN PRN 06/21 1900 AC PO 06/26 185 2139 Acetaminophen 650 MG Q4H PRN PRN 06/21 173 AC 1 08/24 PO 07/21 172 0828 Heparin Sodium 5,000 UNIT ASDIR PRN 06/21 173 A C 06/22 IV 07/21 172 1449 Nitroglycerin 0.4 MG Q5M PRN PRN 06/21 173 AC SL 07/21 172 Ondansetron HCl 4 MG Q6H PRN PRN 06/21 1730 AC 06/24 IV 07/21 172 2213 24 hour I O ending at 0700: 06/26 0700 06/25 1900 Intake Total 510.00 Output Total 0 Balance 510.00 Intake, IV 10.00 Intake, Oral 500 Number 0 Bowel Movements Number Voids 2 Output, Stool 0 Vital Signs: Date Time Temp Pulse Resp B/P B/P Pulse O2 O2 F low FiO2 Mean Ox Delivery Rate 06/26 1144 36.7 73 18 103/65 77.5 98 Nasal cannula 06/26 1123 96 Nasal 4 cannula 06/26 0725 Nasal 4 cannula 06/26 0725 83 19 119/72 87.6 98 06/26 0404 36.8 92 17 132/80 97.1 95 06/26 0120 36.7 77 17 127/79 94.8 99 06/25 2000 Nasal 3 cannula 06/25 1933 36.6 88 14 128/77 93.6 100 06/25 1536 36.9 70 16 125/75 92.0 99 Nasal 3 cannula PATIENT WEIGHT: Weight (lb): 245 Weight (oz): 9.52 Weight (kg): 111.13 Physical Exam General appearance: alert, awake, oriented, no a cute distress Neck: non-tender, no JVD Cardiovascular: CV assessment: regular rate and rhythm Respiratory: decreased breath sounds, on oxygen, no distress Abdomen: non-tender, obese Genitourinary: no flank pain, no urinary cathete r Lower extremity: LE assessment: abnormal capillary refill, abnor mal temperature, edema, abnormal pedal pulse Musculoskeletal: normal inspection Neuro/SURGICAL SPECIALIST: alert, oriented X 3, normal speech Skin: scabs lower extremities Ulcer: Type/cause: diabetic, arterial Location: foot (bilateral toes) Psychiatry: normal affect, normal mood Results Radiology data: Recent Impressions: RADIOLOGY - XR FOOT 3 + V LT 06/25 1610 Report Impression - Status: SIGNED Entered: 06/26/2022 0842 IMPRESSION: Soft tissue swelling is seen about the left foot and ankle. Moderate calcaneal spurring at the Achilles tend on and plantar fascia tendon insertion sites. There appears to be prior deformity of the mid shaft to head of the left 1st proxima l phalanx. Mild degenerative changes about the left 1st interpha langeal joint and slight degenerative changes about the left 1st m etatarsophalangeal joint. No acute fracture or dislocation. No plai n film evidence of osteomyelitis. Impression By: [email or web address] Gali Mosher M.D. Diagnosis, Assessment Plan Consultants: cardiology, cardiovascular surgery, nephrology, wound care Free Text DxA P Notes Free Text DxA P Notes: 67 YO female with PMHx of HTN, DM, CHF, ESRD on HD who initially presented at [facility] with SOB and fatigue. Sh regan was treated for NSTEMI and acute CHF exacerbation. 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 She is transferred her for CABG evaluation. Echo showed LVEF 50%. Cardiolology is consulted for continuity of cardiac-related care . 1. NSTEMI/Multivessel CAD continue ASA, statin, plavix, bb telemetry monitoring STS risk score 17%, too high risk for CABG. Plan for PCI and peripheral angiogram today- rep ort to follow 2. Acute on chronic Diastolic CHF volume management per nephrology echo from OSH LVEF 50% 3. ESRD on HD per nephrology 4. Diabetes mellitus per admitting team 5. Hypertension BP soft but holding continue low-dose beta-susan for CAD 6. Toe ulcers/severe PAD LE arterial doppler - severe PAD peripheral angiogram today- report to follow continue supportive care Herson Tang 06/28/22 1103: Attestations Physician Attestation Agree w/findings plan: I have seen and examined the pt, I Agree with th e findings and plan as documented by Sabrina Tirado. S/p peripheral angiogram and MORPHOLOGIST to the anterior tibial artery Electronically Signed by Sabrina Tirado INDUSTRIAL RELATIONS DIRECTOR on 1 08/27/21 at 1357 Electronically Signed by Herson Tang MD on at 1104 [facility] #:[id number] END OF REPORT 2022-06-26 07:54:00-00:00 [facility] ([facility]) Nephrology Progress Note REPORT#:[id number] REPORT STATUS: Signed DATE:06/26/22 TIME: 0754 PATIENT: MESERET MOTTA UNIT #: [id number] ROOM/BED: [place] [address] : 56 AGE: 67 SEX: F ATTEND: Nidhi Ahston MD ADM AUTHOR: Jennifer Shelton MD * ALL edits or amendments must be made on the Summay/computer document * Subjective Chief complaint: Transferred for CABG HPI: Patient seen and evaluated, discussed with care team, 67-year-old female with history of end-stage renal d isease on chronic hemodialysis Sunday, and Sunday, diabetes mellitus, peripheral arterial disease and hypertension who was transferred to [facility] for CABG. Terrence quevedo initially presented to [facility] in [place] compl aining of shortness of breath. Underwent left heart cath which showed diffuse di sease and patient was transferred for evaluation for CABG. renal consult was requ ested for management of her end-stage renal disease/ hemodialysis. Patient reports: Yes: complaints. Comments: Patient seen and evaluated, HPI no change from i nitial, feels okay. Review of Systems Constitutional: Denies: chills, fever. Skin: Reports: swelling. Allergy/Immun: Denies: hives, itching. Eyes: Denies: redness, discharge. ENT: Denies: ear drainage, ear ringing. Respiratory: Denies: hemoptysis, SOB. Cardiovascular: Denies: chest pain. Objective General VS/I O: Vital Signs: Date Time Temp Pulse Resp B/P B/P Pulse O2 O2 F low FiO2 Mean Ox Delivery Rate 06/26 0725 83 19 119/72 87.6 98 06/26 0404 36.8 92 17 132/80 97.1 95 06/26 0120 36.7 77 17 127/79 94.8 99 06/25 2000 Nasal 3 cannula 06/25 1933 36.6 88 14 128/77 93.6 100 06/25 1536 36.9 70 16 125/75 92.0 99 Nasal 3 cannula 06/25 1059 36.6 68 16 128/74 91.9 98 Room air 06/25 0832 36.9 76 16 120/73 88.9 99 Nasal 3 cannula 24 hour I O ending at 0700: 06/26 0700 06/25 1900 Intake Total 510.00 Output Total 0 Balance 510.00 Intake, IV 10.00 Intake, Oral 500 Number 0 Bowel Movements Number Voids 2 Output, Stool 0 PATIENT WEIGHT: Weight (lb): 245 Weight (oz): 9.52 Weight (kg): 111.13 Medications Active Meds + DC'd Last 24 Hrs Sodium Chloride (SODIUM CHLORIDE 0.9%) 1,000 ML .[id number] ONE IV (DC) Epoetin Vanesa-epbx (RETACRIT) 6,000 UNIT TuThSa@2 100 SUBQ Sevelamer Carbonate (RENVELA) 1,600 MG C MEALS P O Clopidogrel Bisulfate (Plavix) 75 MG DAILY PO Mupirocin (BACTROBAN 2% 22 GM OINTMENT) 1 APPLIC BID TOPICAL Ceftriaxone Sodium (ROCEPHIN 1000MG VIAL) 1,000 MG Q24H IV Sodium Chloride (SODIUM CHLORIDE) 10 ML Calcitriol (RocaltroL) 0.5 MCG DAILY PO Midodrine (PROAMATINE) 5 MG 0900,1300,1700 PO Levothyroxine Sodium (LEVOTHYROXINE SODIUM) 150 MCG DAILY 0600 PO Buspirone HCl (BUSPAR) 5 MG BID PO Metoprolol Tartrate (LOPRESSOR) 12.5 MG Q12HR PO Pantoprazole (PROTONIX) 40 MG 0600,1800 PO Midodrine (PROAMATINE) 10 MG DIALYSIS-DOSE BEFOR E PO (CKD) Albumin Human (ALBUMINAR-25%) 12.5 GM ASDIR PRN IV Heparin Sodium (Porcine) (HEPARIN SODIUM) 3,000 UNIT ASDIR PRN DIALYSIS Lidocaine HCl (LIDOCAINE HCL/PF) 0.5 ML ASDIR DC N I-DERMAL (CKD) Mannitol (MANNITOL 25% 12.5GM/50ML) 12.5 GM ASDI R PRN IV Sodium Chloride (SODIUM CHLORIDE 0.9%) 2,000 ML ASDIR PRN IV Sodium Chloride (SODIUM CHLORIDE) 5 ML ASDIR PRN IV Sodium Chloride (SODIUM CHLORIDE) 10 ML ASDIR DC N IV Sodium Chloride (SODIUM CHLORIDE 0.9%) 250 ML DIR PRN IV Aspirin (ASPIRIN) 81 MG C BK PO Atorvastatin Calcium (LIPITOR) 40 MG 2100 PO Insulin Human Lispro (HUMALOG) 0 AC HS SUBQ Dextrose/Water (DEXTROSE 10% IN WATER) 125 ML DIR PRN IV (CKD) Dextrose/Water (DEXTROSE 10% IN WATER) 250 ML DIR PRN IV (CKD) Glucagon (GLUCAGON) 1 MG ASDIR PRN IM Melatonin (Melatonin) 3 MG BEDTIME PRN PRN PO Morphine Sulfate (morphine SULFATE) 2 MG Q4H PRN PRN IV Tramadol HCl (ULTRAM) 50 MG Q6H PRN PRN PO Acetaminophen (TYLENOL) 650 MG Q4H PRN PRN PO Heparin Sodium (HEPARIN 5000 UNITS/ML) 5,000 UNI T ASDIR PRN IV Nitroglycerin (NITROSTAT) 0.4 MG Q5M PRN PRN SL Ondansetron HCl (ZOFRAN) 4 MG Q6H PRN PRN IV Physical Exam General appearance: alert, no acute distress Head/eyes: atraumatic, normocephalic ENT: normal nose Neck: non-tender, supple/no meningismus Cardiovascular: normal heart sounds, no rub Respiratory: aerating well, symmetric expansion Abdomen: non-tender, soft Genitourinary: no flank pain Extremities: pitting edema, non-tender Musculoskeletal: no CVA tenderness, no tendernes s Neuro/SURGICAL SPECIALIST: alert, normal speech Skin: dry, intact Ulcer: Type/cause: diabetic, arterial Location: foot (bilateral toes) Results Findings/Data: Laboratory Tests 06/26 06/26 06/25 06/25 06/25 0616 0427 1932 1530 1057 Chemistry Sodium (134 - 147 mEq/L) 137 Potassium (3.4 - 5.0 mEq/L) 4.4 Chloride (100 - 108 mEq/L) 98 L Carbon Dioxide (21 - 33 mEq/l) 22 Anion Gap (0 - 20) 21 H BUN (7 - 18 mg/dL) 39 H Creatinine (0.6 - 1.3 mg/dL) 5.4 H Glomerular Filtr Rate (80 - 90) 8.2 L Glucose (70 - 110 mg/dL) 201 H POC Glucose (70 - 110 MG/DL) 214 H 198 H 189 H 186 H Calcium (8.0 - 10.5 mg/dL) 9.9 Phosphorus (2.5 - 4.9 MG/DL) 6.8 H Magnesium (1.80 - 2.40 mg/dL) 2.24 Total Bilirubin (0.0 - 1.0 mg/dL) 0.50 AST (15 - 37 IUnit/L) 18 ALT (30 - 65 IUnit/L) 66 H Total Alk Phosphatase (20 - 125 IUnit/L) 241 H Total Protein (6.4 - 8.2 g/dL) 6.7 Albumin (3.4 - 5.0 g/dL) 3.50 Laboratory Tests 06/26 06/25 0427 1035 Hematology WBC (4.5 - 11.0 x10 3/uL) 14.0 H 12.8 H RBC (3.54 - 5.02 x10 6/uL) 3.18 L 2.93 L Hgb (11.0 - 15.0 g/dL) 9.8 L 9.2 L Hct (33.0 - 45.0 %) 33.6 30.5 L MCV (81.0 - 99.0 fL) 105.7 H 104.1 H MCH (27.0 - 33.0 pg) 30.8 31.4 MCHC (33.0 - 37.0 g/dL) 29.2 L 30.2 L RDW (11.5 - 14.5 %) 15.8 H 15.9 H Plt Count (150 - 400 x10 3/uL) 145 L 134 L MPV (7.0 - 9.0 fL) 9.9 H 9.7 H Neut % (Auto) (56.0 - 77.0 %) 81.7 H 84.6 H Lymph % (Auto) (14.0 - 32.0 %) 6.2 L 5.1 L Kerr % (Auto) (4.8 - 9.0 %) 10.3 H 8.3 Eos % (Auto) (0.3 - 3.7 %) 1.3 1.5 Baso % (Auto) (0.0 - 2.0 %) 0.1 0.1 Neut # (Auto) (2.0 - 7.6 x10 3/uL) 11.42 H 10.8 4 H Lymph # (Auto) (1.0 - 3.8 x10 3/uL) 0.87 L 0.65 L Kerr # (Auto) (0.1 - 0.8 x10 3/uL) 1.44 H 1.06 H Eos # (Auto) (0.0 - 0.2 x10 3/uL) 0.18 0.19 Baso # (Auto) (0.0 - 0.2 x10 3/uL) 0.02 0.01 Abs Immat Gran (auto) (0.00 - 0.03 x10 3/uL) 0. 06 H 0.05 H Add Manual Diff NO NO Immature Gran % (0.0 - 2.0 %) 0.4 0.4 Nucleated RBC % (0 - 0 %) 0.0 0.0 Nucleated RBCs # (Man) (0.0 - 0.1 x10 3/uL) 0.0 0 0.00 Anisocytosis SLIGHT Macrocytosis FEW Diagnosis, Assessment Plan Free Text A P: Patient seen and evaluated, discussed with care team, images and laboratories reviewed. End-stage renal disease on hronic hemodialysis, Sunday, and Sunday, plan for hemodialysis today Status post left heart cath with multi-vessel co ronary artery disease, respiratory evaluation for CABG. Hypertension: Monitor blood pressure closely and adjust medications as needed Hyperlipidemia: Lipitor Diabetes mellitus: Insulin: Monitor blood sugar closely adjust medications as needed Anemia: We will start Epogen 4000 subcu 3 times a week Elevated alkaline phosphatase we will check PTH. 06/23/2022 plan for filtration today if her bloo d pressure allows, had hemodialysis yesterday. See showed hemoglobin 9. 1, platelet 136, blood count 12.1. We will increase Epoge n to 6000 subcu 3 times a week, PTH 660 we will add Rocaltrol 0.5 mcg p.o. daily, will add midodrine 5 mg p.o. 3 times daily to allow for ultrafiltration. 06/24/2022 laboratory for is morning showed sodium 136, potassium 4.9, CO2 23, BUN 50, creatinine 5.8, phos phorus 7.1 we will add Renvela 2 p.o. with each meal , hemoglobin 9.3, platelet 152, blood count 13.3 , for hemodialysis today, 4 hours, 2K, ultrafiltration 3 to 4 L if tolerated , seen during HD. 06/25/2022 laboratory this tiffany mcfarland showed sodium 137, potassium 4.3, CO2 25, BUN 31, creatinine 4.5, alkaline phosphatase 272, st atus post ultrafiltration yesterday, 3.9 L removed, plan for dialysis in t he morning. 06/26/2022 laboratory this tiffany mcfarland showed sodium 137, potassium 4.4, CO2 22, BUN 39, creatinine 5.4, hemoglob in 9.8, platelet 145, blood count 14, phosphorus 6.8 we will increase Renvela to 4 p.o. with each meal, plan for hemodialysis today, 4 hours, 3K, ultrafiltration 3 to 4 L if tolerat ed Consultants: cardiology, cardiovascular surgery, nephrology, wound care Electronically Signed by Jennifer Shelton MD on at 1034 RPT #:[id number] END OF REPORT 2022-06-26 07:12:00-00:00 [facility] Hospitalist Progress Note REPORT#:[id number] REPORT STATUS: Signed DATE:06/26/22 TIME: 0712 PATIENT: MESERET MOTTA UNIT #: [id number] ROOM/BED: [place] [id number] : 56 AGE: 67 SEX: F ATTEND: Nidhi Ashton MD ADM AUTHOR: Skye Johnson MD * ALL edits or amendments must be made on the el ectronic/computer document * Subjective Chief complaint: No complaint. Waiting for PCI and peripheral ang iogram today. Wound culture growing Enterococcus faecalis. Antibiotic switch ed to Unasyn. On 4 L oxygen via nasal cannula, on hemodi alysis on TTS, plan for hemodialysis status post PCI and angiogram today, lipid panel pending, blood culture ordered for elevated leukocytosis, PT/OT eval pending. Objective General VS/I O: Vital Signs: Date Time Temp Pulse Resp B/P B/P Pulse O2 O2 Flow FiO2 Mean Ox Delivery Rate 06/26 1144 98.1 73 18 103/65 77.5 98 Nasal cannula 06/26 1123 96 Nasal 4 cannula 06/26 0725 Nasal 4 cannula 06/26 0725 83 19 119/72 87.6 98 06/26 0404 98.2 92 17 132/80 97.1 95 06/26 0120 98.1 77 17 127/79 94.8 99 06/25 2000 Nasal 3 cannula 06/25 1933 97.9 88 14 128/77 93.6 100 06/25 1536 98.4 70 16 125/75 92.0 99 Nasal 3 cannula 24 hour I O ending at 0700: 06/26 0700 06/25 1900 Intake Total 510.00 Output Total 0 Balance 510.00 Intake, IV 10.00 Intake, Oral 500 Number 0 Bowel Movements Number Voids 2 Output, Stool 0 PATIENT WEIGHT: Weight (lb): 245 Weight (oz): 9.52 Weight (kg): 111.13 Medications: Active Meds + DC'd Last 24 Hrs Ampicillin Sodium/Sulbactam Sodium (UNASYN 3GM) 3 GM 1800 IV Sodium Chloride (SODIUM CHLORIDE 0.9% 100 ML) 1 00 ML Fentanyl Citrate (SUBLIMAZE) 0 .STK-MED ONE .RO DIMPLE (DC) Midazolam HCl (VERSED) 0 .STK-MED ONE .ROUTE (DC ) Heparin Sodium/Sodium Chloride (HEPARIN 1,000 UN ITS/NS 500ML) 1,000 ML .STK- MED ONE IV (DC) Lidocaine HCl (LIDOCAINE HCL/PF) 0 .STK-MED ONE .ROUTE (DC) Sevelamer Carbonate (RENVELA) 3,200 MG C MEALS P O Sodium Chloride (SODIUM CHLORIDE 0.9%) 1,000 ML .[id number] ONE IV (DC) Epoetin Vanesa-epbx (RETACRIT) 6,000 UNIT TuThSa@2 100 SUBQ Sevelamer Carbonate (RENVELA) 1,600 MG C MEALS P O (DC) Clopidogrel Bisulfate (Plavix) 75 MG DAILY PO Mupirocin (BACTROBAN 2% 22 GM OINTMENT) 1 APPLIC BID TOPICAL Ceftriaxone Sodium (ROCEPHIN 1000MG VIAL) 1,000 MG Q24H IV (DC) Sodium Chloride (SODIUM CHLORIDE) 10 ML Calcitriol (RocaltroL) 0.5 MCG DAILY PO Midodrine (PROAMATINE) 5 MG 0900,1300,1700 PO Levothyroxine Sodium (LEVOTHYROXINE SODIUM) 150 MCG DAILY 0600 PO Buspirone HCl (BUSPAR) 5 MG BID PO Metoprolol Tartrate (LOPRESSOR) 12.5 MG Q12HR PO Pantoprazole (PROTONIX) 40 MG 0600,1800 PO Midodrine (PROAMATINE) 10 MG DIALYSIS-DOSE BEFOR E PO (CKD) Albumin Human (ALBUMINAR-25%) 12.5 GM ASDIR PRN IV Heparin Sodium (Porcine) (HEPARIN SODIUM) 3,000 UNIT ASDIR PRN DIALYSIS Lidocaine HCl (LIDOCAINE HCL/PF) 0.5 ML ASDIR DC N I-DERMAL (CKD) Mannitol (MANNITOL 25% 12.5GM/50ML) 12.5 GM ASDI R PRN IV Sodium Chloride (SODIUM CHLORIDE 0.9%) 2,000 ML ASDIR PRN IV Sodium Chloride (SODIUM CHLORIDE) 5 ML ASDIR PRN IV Sodium Chloride (SODIUM CHLORIDE) 10 ML ASDIR DC N IV Sodium Chloride (SODIUM CHLORIDE 0.9%) 250 ML DIR PRN IV Aspirin (ASPIRIN) 81 MG C BK PO Atorvastatin Calcium (LIPITOR) 40 MG 2100 PO Insulin Human Lispro (HUMALOG) 0 AC HS SUBQ Dextrose/Water (DEXTROSE 10% IN WATER) 125 ML DIR PRN IV (CKD) Dextrose/Water (DEXTROSE 10% IN WATER) 250 ML DIR PRN IV (CKD) Glucagon (GLUCAGON) 1 MG ASDIR PRN IM Melatonin (Melatonin) 3 MG BEDTIME PRN PRN PO Morphine Sulfate (morphine SULFATE) 2 MG Q4H PRN PRN IV Tramadol HCl (ULTRAM) 50 MG Q6H PRN PRN PO Acetaminophen (TYLENOL) 650 MG Q4H PRN PRN PO Heparin Sodium (HEPARIN 5000 UNITS/ML) 5,000 UNI T ASDIR PRN IV Nitroglycerin (NITROSTAT) 0.4 MG Q5M PRN PRN SL Ondansetron HCl (ZOFRAN) 4 MG Q6H PRN PRN IV Physical Exam General appearance: alert, awake, oriented Head/Eyes: atraumatic, clear cornea, EOMI, kristopher l conjunctiva/sclera, PERRLA ENT: moist mucosal membranes Neck: supple/no meningismus, no JVD Cardiovascular: normal heart sounds, regular rat e rhythm, no murmur Respiratory: aerating well, clear to auscultatio n, symmetric expansion Abdomen: non-tender, normal bowel sounds, soft, no distention Extremities: edema, moves all Neuro/SURGICAL SPECIALIST: alert, oriented X 3, normal speech, n o motor deficits Ulcer: Type/cause: diabetic, arterial Location: foot (bilateral toes) Psychiatry: normal affect Results Findings/Data: Laboratory Tests 06/26 06/26 06/26 06/26 06/26 1400 1141 0720 0616 0427 Chemistry Sodium (134 - 147 mEq/L) 137 Potassium (3.4 - 5.0 mEq/L) 4.4 Chloride (100 - 108 mEq/L) 98 L Carbon Dioxide (21 - 33 mEq/l) 22 Anion Gap (0 - 20) 21 H BUN (7 - 18 mg/dL) 39 H Creatinine (0.6 - 1.3 mg/dL) 5.4 H Glomerular Filtr Rate (80 - 90) 8.2 L Glucose (70 - 110 mg/dL) 201 H POC Glucose (70 - 110 MG/DL) 192 H 215 H 220 H 214 H Calcium (8.0 - 10.5 mg/dL) 9.9 Phosphorus (2.5 - 4.9 MG/DL) 6.8 H Magnesium (1.80 - 2.40 mg/dL) 2.24 Total Bilirubin (0.0 - 1.0 mg/dL) 0.50 AST (15 - 37 IUnit/L) 18 ALT (30 - 65 IUnit/L) 66 H Total Alk Phosphatase (20 - 125 241 H IUnit/L) Total Protein (6.4 - 8.2 g/dL) 6.7 Albumin (3.4 - 5.0 g/dL) 3.50 06/25 06/25 1932 1530 Chemistry POC Glucose (70 - 110 MG/DL) 198 H 189 H Laboratory Tests 06/26 0427 Hematology WBC (4.5 - 11.0 x10 3/uL) 14.0 H RBC (3.54 - 5.02 x10 6/uL) 3.18 L Hgb (11.0 - 15.0 g/dL) 9.8 L Hct (33.0 - 45.0 %) 33.6 MCV (81.0 - 99.0 fL) 105.7 H MCH (27.0 - 33.0 pg) 30.8 MCHC (33.0 - 37.0 g/dL) 29.2 L RDW (11.5 - 14.5 %) 15.8 H Plt Count (150 - 400 x10 3/uL) 145 L MPV (7.0 - 9.0 fL) 9.9 H Neut % (Auto) (56.0 - 77.0 %) 81.7 H Lymph % (Auto) (14.0 - 32.0 %) 6.2 L Kerr % (Auto) (4.8 - 9.0 %) 10.3 H Eos % (Auto) (0.3 - 3.7 %) 1.3 Baso % (Auto) (0.0 - 2.0 %) 0.1 Neut # (Auto) (2.0 - 7.6 x10 3/uL) 11.42 H Lymph # (Auto) (1.0 - 3.8 x10 3/uL) 0.87 L Kerr # (Auto) (0.1 - 0.8 x10 3/uL) 1.44 H Eos # (Auto) (0.0 - 0.2 x10 3/uL) 0.18 Baso # (Auto) (0.0 - 0.2 x10 3/uL) 0.02 Abs Immat Gran (auto) (0.00 - 0.03 x10 3/uL) 0. 06 H Add Manual Diff NO Immature Gran % (0.0 - 2.0 %) 0.4 Nucleated RBC % (0 - 0 %) 0.0 Nucleated RBCs # (Man) (0.0 - 0.1 x10 3/uL) 0.0 0 Anisocytosis SLIGHT Macrocytosis FEW Laboratory Tests 06/26 1003 Serology SARS-CoV-2 Ag (Rapid) (Negative) Negative Radiology data: Recent Impressions: RADIOLOGY - XR FOOT 3 + V LT 06/25 1610 Report Impression - Status: SIGNED Entered: 06/26/2022 0842 IMPRESSION: Soft tissue swelling is seen about the left foot and ankle. Moderate calcaneal spurring at the Achilles tend on and plantar fascia tendon insertion sites. There appears to be prior deformity of the mid shaft to head of the left 1st proxima l phalanx. Mild degenerative changes about the left 1st interpha langeal joint and slight degenerative changes about the left 1st m etatarsophalangeal joint. No acute fracture or dislocation. No plai n film evidence of osteomyelitis. Impression By: [email or web address] - Jett Mosher M.D. Diagnosis, Assessment Plan Consultants: cardiology, cardiovascular surgery, nephrology, wound care Free Text DxA P Notes Free text DxA P notes: Three-vessel coronary artery disease CV surgery following. Dopplers, alexandro duplex were ordered patient is off the heparin drip Continue on aspirin and atorvastatin -echo from OSH LVEF 50% cardiology seen -peripheral angiogram/PCI today 06/26 Severe PAD/toe ulcer: -peripheral angiogram on 06/26 Acute respiratory failure with hypoxemia Patient presented with supplemental nasal cannu la oxygen -Secondary to pulmonary edema Leukocytosis: -CT chest result done -Afebrile -Patient has multiple ulcers in hands and feet. Wound cx growing ent fecalis, rocephin switched to unasyn -blood culture 06/26 (was not ordered on admissi on) End-stage renal disease on hemodialysis Patient is on a Sunday sched jaxon Banana Ripening Room Supervisor following Elevated LFTs Secondary to hepatic congestion Monitor LFTs Type 2 diabetes mellitus on insulin sliding scale Diabetic diet Hypothyroidism Resume Synthroid Anemia of chronic disease -Transfuse for Hb <7 -No bleeding hypotension on midodrine on empiric IV CTX check labs in am Disposition: Waiting for PCI and peripheral evelyn ogram today. Wound culture growing Enterococcus faecalis. Antibiotic switch ed to Unasyn. On 4 L oxygen via nasal cannula, on hemodi alysis on TTS, plan for hemodialysis status post PCI and angiogram today, lipid panel pending, blood culture ordered for elevated leukocytosis, PT/OT eval pending. Continue inpat ient care. Quality: Gen Med Crit Care VTE Prophylaxis VTE prophylaxis initiated: yes Current Medications Current medication review: I attest that the foregoing medication list in [facility] medical record is true, accurate, and complete to the best of my knowled ge. Electronically Signed by Skye Johnson MD on 2 at 1530 RPT #:[id number] END OF REPORT 2022-06-25 14:22:00-00:00 [facility] ([facility]) Wound Care Progress Note REPORT#:[id number] REPORT STATUS: Signed DATE:06/25/22 TIME: 1421 PATIENT: MESERET MOTTA UNIT #: [id number] ROOM/BED: [place] [id number] : 56 AGE: 67 SEX: F ATTEND: Nidhi Ashton MD ADM AUTHOR: Sybil Byers MD * ALL edits or amendments must be made on the [employer] document * Subjective Chief complaint: Woundcare FU for foot, hand leg ulcers; c/o sl S OB, but no extremity pain. Objective General Medications: Active Meds + DC'd Last 24 Hrs Epoetin Vanesa-epbx (RETACRIT) 6,000 UNIT TuThSa@2 100 SUBQ Sevelamer Carbonate (RENVELA) 1,600 MG C MEALS P O Clopidogrel Bisulfate (Plavix) 75 MG DAILY PO Mupirocin (BACTROBAN 2% 22 GM OINTMENT) 1 APPLIC BID TOPICAL Ceftriaxone Sodium (ROCEPHIN 1000MG VIAL) 1,000 MG Q24H IV Sodium Chloride (SODIUM CHLORIDE) 10 ML Calcitriol (RocaltroL) 0.5 MCG DAILY PO Midodrine (PROAMATINE) 5 MG 0900,1300,1700 PO Levothyroxine Sodium (LEVOTHYROXINE SODIUM) 150 MCG DAILY 0600 PO Buspirone HCl (BUSPAR) 5 MG BID PO Epoetin Vanesa-epbx (RETACRIT) 4,000 UNIT TuThSa@2 100 SUBQ (DC) Metoprolol Tartrate (LOPRESSOR) 12.5 MG Q12HR PO Pantoprazole (PROTONIX) 40 MG 0600,1800 PO Midodrine (PROAMATINE) 10 MG DIALYSIS-DOSE BEFOR E PO (CKD) Albumin Human (ALBUMINAR-25%) 12.5 GM ASDIR PRN IV Heparin Sodium (Porcine) (HEPARIN SODIUM) 3,000 UNIT ASDIR PRN DIALYSIS Lidocaine HCl (LIDOCAINE HCL/PF) 0.5 ML ASDIR DC N I-DERMAL (CKD) Mannitol (MANNITOL 25% 12.5GM/50ML) 12.5 GM ASDI R PRN IV Sodium Chloride (SODIUM CHLORIDE 0.9%) 2,000 ML ASDIR PRN IV Sodium Chloride (SODIUM CHLORIDE) 5 ML ASDIR PRN IV Sodium Chloride (SODIUM CHLORIDE) 10 ML ASDIR DC N IV Sodium Chloride (SODIUM CHLORIDE 0.9%) 250 ML DIR PRN IV Aspirin (ASPIRIN) 81 MG C BK PO Atorvastatin Calcium (LIPITOR) 40 MG 2100 PO Insulin Human Lispro (HUMALOG) 0 AC HS SUBQ Dextrose/Water (DEXTROSE 10% IN WATER) 125 ML DIR PRN IV (CKD) Dextrose/Water (DEXTROSE 10% IN WATER) 250 ML DIR PRN IV (CKD) Glucagon (GLUCAGON) 1 MG ASDIR PRN IM Melatonin (Melatonin) 3 MG BEDTIME PRN PRN PO Morphine Sulfate (morphine SULFATE) 2 MG Q4H PRN PRN IV Tramadol HCl (ULTRAM) 50 MG Q6H PRN PRN PO Acetaminophen (TYLENOL) 650 MG Q4H PRN PRN PO Heparin Sodium (HEPARIN 5000 UNITS/ML) 5,000 UNI T ASDIR PRN IV Nitroglycerin (NITROSTAT) 0.4 MG Q5M PRN PRN SL Ondansetron HCl (ZOFRAN) 4 MG Q6H PRN PRN IV Dietitian Nutrition assessment The data set between the solid lines has been im ported from the dietitian's assessment. BMI Calculated: 39.6 Nutrition related diagnosis: Nutrition diagnosis details: Nutrition problem: Nutrition etiology: Nutrition signs and symptoms: Nutrition prescription: Dietitian name: Assessment completed: Physical Exam General appearance: sleeping comfortably Skin: Multiple PT ulcers abrasions on B hands, B feet, L>R, w erythema 0ver L dorsum foot L forefoot. Ulcers on dorsum toes, L >R, w erythema @ forefoot, piunched-out appearance suggestive of arterial u lcers. Weak pulses. Ulcer: Type/cause: diabetic, arterial Location: foot (bilateral toes) Results Findings/Data: Current Medications Sig/Enedina Start time Last Medication Dose Route Stop Time Status Admin Epoetin Vanesa-epbx 6,000 UNIT TuTa@06/24 2 100 AC 06/24 SUBQ 07/24 Sevelamer Carbonate 1,600 MG C MEALS 06/24 1200 AC 06/25 PO 07/24 1159 1208 Clopidogrel 75 MG DAILY 06/23 1800 AC 06/25 Bisulfate PO 07/23 175 0826 Mupirocin 1 APPLIC BID 06/23 1800 AC 06/25 TOPICAL 06/28 175 0833 Ceftriaxone Sodium 1,000 MG Q24H 06/23 1330 AC 1 08/26 Sodium Chloride 10 ML IV 06/30 1329 1330 Calcitriol 0.5 MCG DAILY 06/23 0900 AC 06/25 PO 07/23 0859 0825 Midodrine 5 MG 0900,1300,1700 06/23 0900 AC 06/08 8 PO 07/23 0859 1209 Levothyroxine Sodium 150 MCG DAILY 0600 06/23 06 00 AC 06/25 PO 07/23 0559 0614 Buspirone HCl 5 MG BID 06/22 2100 AC 06/25 PO 07/22 2058 0826 Epoetin Vanesa-epbx 4,000 UNIT TuTa@06/22 2 100 DC 06/22 SUBQ 06/24 2059 220 Metoprolol Tartrate 12.5 MG Q12HR 06/22 2100 AC 06/25 PO 07/22 2058 0832 Pantoprazole 40 MG 0600,1800 06/22 1800 AC 06/25 PO 07/22 175 0614 Midodrine 10 MG DIALYSIS-DOSE 06/22 1545 CKD BEFORE PO 07/22 1544 1314 Albumin Human 12.5 GM ASDIR PRN 06/22 1530 AC IV 07/23 1529 1548 Heparin Sodium 3,000 UNIT ASDIR PRN 06/22 1530 A C 06/24 (Porcine) DIALYSIS 07/22 1529 0858 Lidocaine HCl 0.5 ML ASDIR PRN 06/22 1530 CKD I-DERMAL 07/23 1529 Mannitol 12.5 GM ASDIR PRN 06/22 1530 AC IV 07/23 1529 Sodium Chloride 2,000 ML ASDIR PRN 06/22 1530 AC 06/24 IV 07/23 1529 0857 Sodium Chloride 5 ML ASDIR PRN 06/22 1530 AC IV 07/22 1529 Sodium Chloride 10 ML ASDIR PRN 06/22 1530 AC IV 07/22 1529 0902 Sodium Chloride 250 ML ASDIR PRN 06/22 1530 AC IV 07/22 1529 Aspirin 81 MG C BK 06/22 0800 AC 06/25 PO 07/22 0759 0826 Atorvastatin Calcium 40 MG 2100 06/21 2100 AC PO 07/21 205 205 Insulin Human Lispro 0 AC HS 06/21 2100 AC 06/25 SUBQ 07/21 205 1209 Dextrose/Water 125 ML ASDIR PRN 06/21 1900 CKD IV 07/21 1859 Dextrose/Water 250 ML ASDIR PRN 06/21 1900 CKD IV 07/21 1859 Glucagon 1 MG ASDIR PRN 06/21 1900 AC IM 07/21 1859 Melatonin 3 MG BEDTIME PRN PRN 06/21 1900 AC PO 07/21 1859 0102 Morphine Sulfate 2 MG Q4H PRN PRN 06/21 1900 AC 06/24 IV 06/26 1859 1121 Tramadol HCl 50 MG Q6H PRN PRN 06/21 1900 AC PO 06/26 1859 0829 Acetaminophen 650 MG Q4H PRN PRN 06/21 1730 AC 06/23 PO 07/21 1729 0828 Heparin Sodium 5,000 UNIT ASDIR PRN 06/21 1730 A C 06/22 IV 07/21 1729 1449 Nitroglycerin 0.4 MG Q5M PRN PRN 06/21 1730 AC SL 07/21 1729 Ondansetron HCl 4 MG Q6H PRN PRN 06/21 1730 AC 1 08/25 IV 07/21 1729 2213 Laboratory Tests: 06/25 06/25 06/25 06/25 06/24 1057 1035 0623 0541 1858 Chemistry Sodium (134 - 147 mEq/L) 137 Potassium (3.4 - 5.0 mEq/L) 4.3 Chloride (100 - 108 mEq/L) 97 L Carbon Dioxide (21 - 33 mEq/l) 25 Anion Gap (0 - 20) 19 BUN (7 - 18 mg/dL) 31 H Creatinine (0.6 - 1.3 mg/dL) 4.5 H Glomerular Filtr Rate (80 - 90) 10.2 L Glucose (70 - 110 mg/dL) 169 H POC Glucose (70 - 110 MG/DL) 186 H 159 H 171 H Calcium (8.0 - 10.5 mg/dL) 9.5 Total Bilirubin (0.0 - 1.0 mg/dL) 0.50 AST (15 - 37 IUnit/L) 22 ALT (30 - 65 IUnit/L) 79 H Total Alk Phosphatase (20 - 125 IUnit/L) 272 H Total Protein (6.4 - 8.2 g/dL) 6.5 Albumin (3.4 - 5.0 g/dL) 3.30 L Hematology WBC (4.5 - 11.0 x10 3/uL) 12.8 H RBC (3.54 - 5.02 x10 6/uL) 2.93 L Hgb (11.0 - 15.0 g/dL) 9.2 L Hct (33.0 - 45.0 %) 30.5 L MCV (81.0 - 99.0 fL) 104.1 H MCH (27.0 - 33.0 pg) 31.4 MCHC (33.0 - 37.0 g/dL) 30.2 L RDW (11.5 - 14.5 %) 15.9 H Plt Count (150 - 400 x10 3/uL) 134 L MPV (7.0 - 9.0 fL) 9.7 H Neut % (Auto) (56.0 - 77.0 %) 84.6 H Lymph % (Auto) (14.0 - 32.0 %) 5.1 L Kerr % (Auto) (4.8 - 9.0 %) 8.3 Eos % (Auto) (0.3 - 3.7 %) 1.5 Baso % (Auto) (0.0 - 2.0 %) 0.1 Neut # (Auto) (2.0 - 7.6 x10 3/uL) 10.84 H Lymph # (Auto) (1.0 - 3.8 x10 3/uL) 0.65 L Kerr # (Auto) (0.1 - 0.8 x10 3/uL) 1.06 H Eos # (Auto) (0.0 - 0.2 x10 3/uL) 0.19 Baso # (Auto) (0.0 - 0.2 x10 3/uL) 0.01 Abs Immat Gran (auto) (0.00 - 0.03 0.05 H x10 3/uL) Add Manual Diff NO Immature Gran % (0.0 - 2.0 %) 0.4 Nucleated RBC % (0 - 0 %) 0.0 Nucleated RBCs # (Man) (0.0 - 0.1 0.00 x10 3/uL) 06/24 1523 Chemistry POC Glucose (70 - 110 MG/DL) 159 H Diagnosis, Assessment Plan Free Text A P: Multiple ulcers, B feet, B h ands , sp fall, w suspected arterial ulcers, B feet - Bactroban BID to all ulcers, leave open to air . Wound cx- rare Enterococcus ; check XR of L foot (h/o trauma/fall w ulcers). Severe PVD, BLE - angio pending CAD- tx per cardiology DM ESRD on HD [ x] Optimize Nutrition and Glycemic Control [ x] Pressure relieving inte rventions (Low Air Mattress, Prevalon boot, Turn q2h ) [ x] Nursing to implement impaired skin integrit y care plan as per skin care protocol Coordinattion of care D/W [ ] Other MD's [ ] Pat ient [ ] Family [ ] Nursing [ ] Case Management Electronically Signed by Sybil Byers MD on at 1737 RPT #:[id number] END OF REPORT 2022-06-25 11:16:00-00:00 [facility] ([facility]) Hospitalist Progress Note REPORT#:[id number] REPORT STATUS: Signed DATE:06/25/22 TIME: 1116 PATIENT: MESERET MOTTA UNIT #: [id number] ROOM/BED: [place] [id number] : 56 AGE: 67 SEX: F ATTEND: Nidhi Ashton MD ADM AUTHOR: Stacy Segal MD * ALL edits or amendments must be made on the el [employer]/computer document * Subjective Chief complaint: no acute complaints. just wondering when her conner t is going to be fixed. Objective General VS/I O: Vital Signs: Date Time Temp Pulse Resp B/P B/P Pulse O2 O2 F low FiO2 Mean Ox Delivery Rate 06/25 1059 97.9 68 16 128/74 91.9 98 Room air 06/25 0832 98.4 76 16 120/73 88.9 99 Nasal 3 cannula 06/25 0405 98.1 69 17 102/59 72.9 98 06/24 2313 98.1 65 15 116/64 81.4 98 06/24 2000 Nasal 4 cannula 06/24 1859 97.7 71 14 133/76 95.0 98 06/24 1526 97.9 74 18 114/73 0.0 99 Nasal 2 cannula 06/24 1230 95 Nasal 2 cannula 24 hour I O ending at 0700: 06/25 0700 06/24 1900 Intake Total 810.00 Output Total 0 Balance 810.00 Intake, IV 10.00 Intake, Oral 800 Number 0 Bowel Movements Number Voids 2 Output, Emesis Output, Stool 0 PATIENT WEIGHT: Weight (lb): 245 Weight (oz): 9.52 Weight (kg): 111.13 Medications: Active Meds + DC'd Last 24 Hrs Epoetin Vanesa-epbx (RETACRIT) 6,000 UNIT TuThSa@2 100 SUBQ Sevelamer Carbonate (RENVELA) 1,600 MG C MEALS P O Clopidogrel Bisulfate (Plavix) 75 MG DAILY PO Mupirocin (BACTROBAN 2% 22 GM OINTMENT) 1 APPLIC BID TOPICAL Ceftriaxone Sodium (ROCEPHIN 1000MG VIAL) 1,000 MG Q24H IV Sodium Chloride (SODIUM CHLORIDE) 10 ML Calcitriol (RocaltroL) 0.5 MCG DAILY PO Midodrine (PROAMATINE) 5 MG 0900,1300,1700 PO Levothyroxine Sodium (LEVOTHYROXINE SODIUM) 150 MCG DAILY 0600 PO Buspirone HCl (BUSPAR) 5 MG BID PO Epoetin Vanesa-epbx (RETACRIT) 4,000 UNIT TuThSa@2 100 SUBQ (DC) Metoprolol Tartrate (LOPRESSOR) 12.5 MG Q12HR PO Pantoprazole (PROTONIX) 40 MG 0600,1800 PO Midodrine (PROAMATINE) 10 MG DIALYSIS-DOSE BEFOR E PO (CKD) Albumin Human (ALBUMINAR-25%) 12.5 GM ASDIR PRN IV Heparin Sodium (Porcine) (HEPARIN SODIUM) 3,000 UNIT ASDIR PRN DIALYSIS Lidocaine HCl (LIDOCAINE HCL/PF) 0.5 ML ASDIR DC N I-DERMAL (CKD) Mannitol (MANNITOL 25% 12.5GM/50ML) 12.5 GM ASDI R PRN IV Sodium Chloride (SODIUM CHLORIDE 0.9%) 2,000 ML ASDIR PRN IV Sodium Chloride (SODIUM CHLORIDE) 5 ML ASDIR PRN IV Sodium Chloride (SODIUM CHLORIDE) 10 ML ASDIR DC N IV Sodium Chloride (SODIUM CHLORIDE 0.9%) 250 ML DIR PRN IV Aspirin (ASPIRIN) 81 MG C BK PO Atorvastatin Calcium (LIPITOR) 40 MG 2100 PO Insulin Human Lispro (HUMALOG) 0 AC HS SUBQ Dextrose/Water (DEXTROSE 10% IN WATER) 125 ML DIR PRN IV (CKD) Dextrose/Water (DEXTROSE 10% IN WATER) 250 ML DIR PRN IV (CKD) Glucagon (GLUCAGON) 1 MG ASDIR PRN IM Melatonin (Melatonin) 3 MG BEDTIME PRN PRN PO Morphine Sulfate (morphine SULFATE) 2 MG Q4H PRN PRN IV Tramadol HCl (ULTRAM) 50 MG Q6H PRN PRN PO Acetaminophen (TYLENOL) 650 MG Q4H PRN PRN PO Heparin Sodium (HEPARIN 5000 UNITS/ML) 5,000 UNI T ASDIR PRN IV Nitroglycerin (NITROSTAT) 0.4 MG Q5M PRN PRN SL Ondansetron HCl (ZOFRAN) 4 MG Q6H PRN PRN IV Physical Exam General appearance: no acute distress ENT: moist mucosal membranes Neck: supple/no meningismus, no JVD Cardiovascular: normal heart sounds, regular rat e rhythm, no murmur Respiratory: aerating well, clear to auscultatio n, symmetric expansion Abdomen: non-tender, normal bowel sounds, soft, no distention Extremities: edema, moves all Neuro/SURGICAL SPECIALIST: alert, oriented X 3, normal speech, n o motor deficits Ulcer: Type/cause: diabetic, arterial Location: foot (bilateral toes) Results Findings/Data: Laboratory Tests 06/25 06/25 06/25 06/24 06/24 1057 0623 0541 1858 1523 Chemistry Sodium (134 - 147 mEq/L) 137 Potassium (3.4 - 5.0 mEq/L) 4.3 Chloride (100 - 108 mEq/L) 97 L Carbon Dioxide (21 - 33 mEq/l) 25 Anion Gap (0 - 20) 19 BUN (7 - 18 mg/dL) 31 H Creatinine (0.6 - 1.3 mg/dL) 4.5 H Glomerular Filtr Rate (80 - 90) 10.2 L Glucose (70 - 110 mg/dL) 169 H POC Glucose (70 - 110 MG/DL) 186 H 159 H 171 H 159 H Calcium (8.0 - 10.5 mg/dL) 9.5 Total Bilirubin (0.0 - 1.0 mg/dL) 0.50 AST (15 - 37 IUnit/L) 22 ALT (30 - 65 IUnit/L) 79 H Total Alk Phosphatase (20 - 125 272 H IUnit/L) Total Protein (6.4 - 8.2 g/dL) 6.5 Albumin (3.4 - 5.0 g/dL) 3.30 L 06/24 1242 Chemistry POC Glucose (70 - 110 MG/DL) 110 Laboratory Tests 06/25 1035 Hematology WBC (4.5 - 11.0 x10 3/uL) 12.8 H RBC (3.54 - 5.02 x10 6/uL) 2.93 L Hgb (11.0 - 15.0 g/dL) 9.2 L Hct (33.0 - 45.0 %) 30.5 L MCV (81.0 - 99.0 fL) 104.1 H MCH (27.0 - 33.0 pg) 31.4 MCHC (33.0 - 37.0 g/dL) 30.2 L RDW (11.5 - 14.5 %) 15.9 H Plt Count (150 - 400 x10 3/uL) 134 L MPV (7.0 - 9.0 fL) 9.7 H Neut % (Auto) (56.0 - 77.0 %) 84.6 H Lymph % (Auto) (14.0 - 32.0 %) 5.1 L Kerr % (Auto) (4.8 - 9.0 %) 8.3 Eos % (Auto) (0.3 - 3.7 %) 1.5 Baso % (Auto) (0.0 - 2.0 %) 0.1 Neut # (Auto) (2.0 - 7.6 x10 3/uL) 10.84 H Lymph # (Auto) (1.0 - 3.8 x10 3/uL) 0.65 L Kerr # (Auto) (0.1 - 0.8 x10 3/uL) 1.06 H Eos # (Auto) (0.0 - 0.2 x10 3/uL) 0.19 Baso # (Auto) (0.0 - 0.2 x10 3/uL) 0.01 Abs Immat Gran (auto) (0.00 - 0.03 x10 3/uL) 0. 05 H Add Manual Diff NO Immature Gran % (0.0 - 2.0 %) 0.4 Nucleated RBC % (0 - 0 %) 0.0 Nucleated RBCs # (Man) (0.0 - 0.1 x10 3/uL) 0.0 0 Diagnosis, Assessment Plan Consultants: cardiology, cardiovascular surgery, nephrology, wound care Free Text DxA P Notes Free text DxA P notes: Three-vessel coronary artery disease CV surgery following. Dopplers, alexandro duplex were ordered patient is off the heparin drip Continue on aspirin and atorvastatin cardiology seen -peripheral angiogram/PCI next week Acute respiratory failure with hypoxemia Patient presented with supplemental nasal cannu la oxygen -Secondary to pulmonary edema Elevated LFTs Secondary to hepatic congestion Monitor LFTs Leukocytosis -CT chest result done -Afebrile End-stage renal disease on hemodialysis Patient is on a Sunday sched jaxon Banana Ripening Room Supervisor following Type 2 diabetes mellitus on insulin sliding scale Diabetic diet Hypothyroidism Resume Synthroid Anemia of chronic disease -Transfuse for Hb <7 -No bleeding hypotension on midodrine on empiric IV CTX check labs in am Quality: Gen Med Crit Care VTE Prophylaxis VTE prophylaxis initiated: yes Current Medications Current medication review: I attest that the foregoing medication list in t medical record is true, accurate, and complete to the best of my knowled ge. at 2301 RPT #:[id number] END OF REPORT 2022-06-25 11:12:00-00:00 [facility] ([facility]) Hospitalist Progress Note REPORT#:[id number] REPORT STATUS: Signed DATE:06/25/22 TIME: 1112 PATIENT: MESERET MOTTA UNIT #: [id number] ROOM/BED: [place] [id number] : 56 AGE: 67 SEX: F ATTEND: Nidhi Ashton MD ADM AUTHOR: Stacy Segal MD * ALL edits or amendments must be made on the [facility] document * See Addendum Subjective Chief complaint: LATE ENTRY PROGRESS NOTE FOR 06/23/2022 no acute complaints. just wondering when her conner t is going to be fixed. Objective General VS/I O: Vital Signs: Date Time Temp Pulse Resp B/P B/P Pulse O2 O2 F low FiO2 Mean Ox Delivery Rate 06/25 1059 97.9 68 16 128/74 91.9 98 Room air 06/25 0832 98.4 76 16 120/73 88.9 99 Nasal 3 cannula 06/25 0405 98.1 69 17 102/59 72.9 98 06/24 2313 98.1 65 15 116/64 81.4 98 06/24 2000 Nasal 4 cannula 06/24 1859 97.7 71 14 133/76 95.0 98 06/24 1526 97.9 74 18 114/73 0.0 99 Nasal 2 cannula 06/24 1230 95 Nasal 2 cannula 24 hour I O ending at 0700: 06/25 0700 06/24 1900 Intake Total 810.00 Output Total 0 Balance 810.00 Intake, IV 10.00 Intake, Oral 800 Number 0 Bowel Movements Number Voids 2 Output, Emesis Output, Stool 0 PATIENT WEIGHT: Weight (lb): 245 Weight (oz): 9.52 Weight (kg): 111.13 Medications: Active Meds + DC'd Last 24 Hrs Epoetin Vanesa-epbx (RETACRIT) 6,000 UNIT TuThSa@2 100 SUBQ Sevelamer Carbonate (RENVELA) 1,600 MG C MEALS P O Clopidogrel Bisulfate (Plavix) 75 MG DAILY PO Mupirocin (BACTROBAN 2% 22 GM OINTMENT) 1 APPLIC BID TOPICAL Ceftriaxone Sodium (ROCEPHIN 1000MG VIAL) 1,000 MG Q24H IV Sodium Chloride (SODIUM CHLORIDE) 10 ML Calcitriol (RocaltroL) 0.5 MCG DAILY PO Midodrine (PROAMATINE) 5 MG 0900,1300,1700 PO Levothyroxine Sodium (LEVOTHYROXINE SODIUM) 150 MCG DAILY 0600 PO Buspirone HCl (BUSPAR) 5 MG BID PO Epoetin Vanesa-epbx (RETACRIT) 4,000 UNIT TuThSa@2 100 SUBQ (DC) Metoprolol Tartrate (LOPRESSOR) 12.5 MG Q12HR PO Pantoprazole (PROTONIX) 40 MG 0600,1800 PO Midodrine (PROAMATINE) 10 MG DIALYSIS-DOSE BEFOR E PO (CKD) Albumin Human (ALBUMINAR-25%) 12.5 GM ASDIR PRN IV Heparin Sodium (Porcine) (HEPARIN SODIUM) 3,000 UNIT ASDIR PRN DIALYSIS Lidocaine HCl (LIDOCAINE HCL/PF) 0.5 ML ASDIR DC N I-DERMAL (CKD) Mannitol (MANNITOL 25% 12.5GM/50ML) 12.5 GM ASDI R PRN IV Sodium Chloride (SODIUM CHLORIDE 0.9%) 2,000 ML ASDIR PRN IV Sodium Chloride (SODIUM CHLORIDE) 5 ML ASDIR PRN IV Sodium Chloride (SODIUM CHLORIDE) 10 ML ASDIR DC N IV Sodium Chloride (SODIUM CHLORIDE 0.9%) 250 ML DIR PRN IV Aspirin (ASPIRIN) 81 MG C BK PO Atorvastatin Calcium (LIPITOR) 40 MG 2100 PO Insulin Human Lispro (HUMALOG) 0 AC HS SUBQ Dextrose/Water (DEXTROSE 10% IN WATER) 125 ML DIR PRN IV (CKD) Dextrose/Water (DEXTROSE 10% IN WATER) 250 ML DIR PRN IV (CKD) Glucagon (GLUCAGON) 1 MG ASDIR PRN IM Melatonin (Melatonin) 3 MG BEDTIME PRN PRN PO Morphine Sulfate (morphine SULFATE) 2 MG Q4H PRN PRN IV Tramadol HCl (ULTRAM) 50 MG Q6H PRN PRN PO Acetaminophen (TYLENOL) 650 MG Q4H PRN PRN PO Heparin Sodium (HEPARIN 5000 UNITS/ML) 5,000 UNI T ASDIR PRN IV Nitroglycerin (NITROSTAT) 0.4 MG Q5M PRN PRN SL Ondansetron HCl (ZOFRAN) 4 MG Q6H PRN PRN IV Physical Exam General appearance: no acute distress ENT: moist mucosal membranes Neck: supple/no meningismus, no JVD Cardiovascular: normal heart sounds, regular rat e rhythm, no murmur Respiratory: aerating well, clear to auscultatio n, symmetric expansion Abdomen: non-tender, normal bowel sounds, soft, no distention Extremities: edema, moves all Neuro/SURGICAL SPECIALIST: alert, oriented X 3, normal speech, n o motor deficits Ulcer: Type/cause: diabetic, arterial Location: foot (bilateral toes) Results Findings/Data: Laboratory Tests 06/25 06/25 06/25 06/24 06/24 1057 0623 0541 1858 1523 Chemistry Sodium (134 - 147 mEq/L) 137 Potassium (3.4 - 5.0 mEq/L) 4.3 Chloride (100 - 108 mEq/L) 97 L Carbon Dioxide (21 - 33 mEq/l) 25 Anion Gap (0 - 20) 19 BUN (7 - 18 mg/dL) 31 H Creatinine (0.6 - 1.3 mg/dL) 4.5 H Glomerular Filtr Rate (80 - 90) 10.2 L Glucose (70 - 110 mg/dL) 169 H POC Glucose (70 - 110 MG/DL) 186 H 159 H 171 H 159 H Calcium (8.0 - 10.5 mg/dL) 9.5 Total Bilirubin (0.0 - 1.0 mg/dL) 0.50 AST (15 - 37 IUnit/L) 22 ALT (30 - 65 IUnit/L) 79 H Total Alk Phosphatase (20 - 125 IUnit/L) 272 H Total Protein (6.4 - 8.2 g/dL) 6.5 Albumin (3.4 - 5.0 g/dL) 3.30 L 06/24 1242 Chemistry POC Glucose (70 - 110 MG/DL) 110 Laboratory Tests 06/25 1035 Hematology WBC (4.5 - 11.0 x10 3/uL) 12.8 H RBC (3.54 - 5.02 x10 6/uL) 2.93 L Hgb (11.0 - 15.0 g/dL) 9.2 L Hct (33.0 - 45.0 %) 30.5 L MCV (81.0 - 99.0 fL) 104.1 H MCH (27.0 - 33.0 pg) 31.4 MCHC (33.0 - 37.0 g/dL) 30.2 L RDW (11.5 - 14.5 %) 15.9 H Plt Count (150 - 400 x10 3/uL) 134 L MPV (7.0 - 9.0 fL) 9.7 H Neut % (Auto) (56.0 - 77.0 %) 84.6 H Lymph % (Auto) (14.0 - 32.0 %) 5.1 L Kerr % (Auto) (4.8 - 9.0 %) 8.3 Eos % (Auto) (0.3 - 3.7 %) 1.5 Baso % (Auto) (0.0 - 2.0 %) 0.1 Neut # (Auto) (2.0 - 7.6 x10 3/uL) 10.84 H Lymph # (Auto) (1.0 - 3.8 x10 3/uL) 0.65 L Kerr # (Auto) (0.1 - 0.8 x10 3/uL) 1.06 H Eos # (Auto) (0.0 - 0.2 x10 3/uL) 0.19 Baso # (Auto) (0.0 - 0.2 x10 3/uL) 0.01 Abs Immat Gran (auto) (0.00 - 0.03 x10 3/uL) 0. 05 H Add Manual Diff NO Immature Gran % (0.0 - 2.0 %) 0.4 Nucleated RBC % (0 - 0 %) 0.0 Nucleated RBCs # (Man) (0.0 - 0.1 x10 3/uL) 0.0 0 Diagnosis, Assessment Plan Free Text DxA P Notes Free text DxA P notes: Three-vessel coronary artery disease CV surgery following. Dopplers, alexandro duplex were ordered Continue heparin drip Continue on aspirin and atorvastatin cardiology seen Acute respiratory failure with hypoxemia Patient presented with supplemental nasal cannu la oxygen -Secondary to pulmonary edema Elevated LFTs Secondary to hepatic congestion Monitor LFTs Leukocytosis -CT chest result pending -Afebrile End-stage renal disease on hemodialysis Patient is on a Maryellen Thursday Saturday kathy coates Banana Ripening Room Supervisor following Type 2 diabetes mellitus on insulin sliding scale Diabetic diet Hypothyroidism Resume Synthroid Anemia of chronic disease -Transfuse for Hb <7 -No bleeding check labs in am Quality: Gen Med Crit Care VTE Prophylaxis VTE prophylaxis initiated: yes Current Medications Current medication review: I attest that the foregoing medication list in t he medical record is true, accurate, and complete to the best of my knowled ge. at 1115 Addendum 1: 06/25/22 1116 by Stacy Segal MD please delete this note at 1116 RPT #:[id number] END OF REPORT 2022-06-25 08:00:00-00:00 [facility] Progress Note REPORT#:[id number] REPORT STATUS: Signed DATE:06/25/22 TIME: 0800 PATIENT: MESERET MOTTA UNIT #: [id number] ROOM/BED: [place] [id number] : 56 AGE: 67 SEX: F ATTEND: Nidhi Ashton MD ADM AUTHOR: Jennifer Shelton MD * ALL edits or amendments must be made on the Summay/computer document * Subjective Chief complaint: Transferred for CABG HPI: Patient seen and evaluated, discussed with care team, 67-year-old female with history of end-stage renal d isease on chronic hemodialysis Sunday, and Sunday, diabetes mellitus, peripheral arterial disease and hypertension who was transferred to [facility] for CABG. Terrence nt initially presented to [facility] in [place] compl aining of shortness of breath. Underwent left heart cath which showed diffuse di sease and patient was transferred for evaluation for CABG. renal consult was requ ested for management of her end-stage renal disease/ hemodialysis. Patient reports: Yes: complaints. Comments: Patient seen and evaluated, HPI no change from i nitial, feels okay. Review of Systems Constitutional: Reports: fatigue. Denies: chills, fever. Skin: Reports: swelling. Allergy/Immun: Denies: hives, itching. Eyes: Denies: redness, discharge. ENT: Denies: ear drainage, ear ringing. Respiratory: Denies: hemoptysis, SOB. Cardiovascular: Denies: chest pain. Objective General VS/I O: Vital Signs: Date Time Temp Pulse Resp B/P B/P Pulse O2 O2 F low FiO2 Mean Ox Delivery Rate 06/25 0405 36.7 69 17 102/59 72.9 98 06/24 2313 36.7 65 15 116/64 81.4 98 06/24 2000 Nasal 4 cannula 06/24 1859 36.5 71 14 133/76 95.0 98 06/24 1526 36.6 74 18 114/73 0.0 99 Nasal 2 cannula 06/24 1230 95 Nasal 2 cannula 06/24 0829 Nasal 4 cannula 24 hour I O ending at 0700: 06/25 0700 06/24 1900 Intake Total 810.00 Output Total 0 Balance 810.00 Intake, IV 10.00 Intake, Oral 800 Number 0 Bowel Movements Number Voids 2 Output, Emesis Output, Stool 0 PATIENT WEIGHT: Weight (lb): 245 Weight (oz): 9.52 Weight (kg): 111.13 Medications Active Meds + DC'd Last 24 Hrs Sodium Chloride (SODIUM CHLORIDE 0.9%) 1,000 ML .[id number] ONE IV (CAN) Epoetin Vanesa-epbx (RETACRIT) 6,000 UNIT TuThSa@2 100 SUBQ Sevelamer Carbonate (RENVELA) 1,600 MG C MEALS P O Clopidogrel Bisulfate (Plavix) 75 MG DAILY PO Mupirocin (BACTROBAN 2% 22 GM OINTMENT) 1 APPLIC BID TOPICAL Ceftriaxone Sodium (ROCEPHIN 1000MG VIAL) 1,000 MG Q24H IV Sodium Chloride (SODIUM CHLORIDE) 10 ML Calcitriol (RocaltroL) 0.5 MCG DAILY PO Midodrine (PROAMATINE) 5 MG 0900,1300,1700 PO Levothyroxine Sodium (LEVOTHYROXINE SODIUM) 150 MCG DAILY 0600 PO Buspirone HCl (BUSPAR) 5 MG BID PO Epoetin Vanesa-epbx (RETACRIT) 4,000 UNIT TuThSa@2 100 SUBQ (DC) Metoprolol Tartrate (LOPRESSOR) 12.5 MG Q12HR PO Pantoprazole (PROTONIX) 40 MG 0600,1800 PO Midodrine (PROAMATINE) 10 MG DIALYSIS-DOSE BEFOR E PO (CKD) Albumin Human (ALBUMINAR-25%) 12.5 GM ASDIR PRN IV Heparin Sodium (Porcine) (HEPARIN SODIUM) 3,000 UNIT ASDIR PRN DIALYSIS Lidocaine HCl (LIDOCAINE HCL/PF) 0.5 ML ASDIR DC N I-DERMAL (CKD) Mannitol (MANNITOL 25% 12.5GM/50ML) 12.5 GM ASDI R PRN IV Sodium Chloride (SODIUM CHLORIDE 0.9%) 2,000 ML ASDIR PRN IV Sodium Chloride (SODIUM CHLORIDE) 5 ML ASDIR PRN IV Sodium Chloride (SODIUM CHLORIDE) 10 ML ASDIR DC N IV Sodium Chloride (SODIUM CHLORIDE 0.9%) 250 ML DIR PRN IV Aspirin (ASPIRIN) 81 MG C BK PO Atorvastatin Calcium (LIPITOR) 40 MG 2100 PO Insulin Human Lispro (HUMALOG) 0 AC HS SUBQ Dextrose/Water (DEXTROSE 10% IN WATER) 125 ML DIR PRN IV (CKD) Dextrose/Water (DEXTROSE 10% IN WATER) 250 ML DIR PRN IV (CKD) Glucagon (GLUCAGON) 1 MG ASDIR PRN IM Melatonin (Melatonin) 3 MG BEDTIME PRN PRN PO Morphine Sulfate (morphine SULFATE) 2 MG Q4H DC N PRN IV Tramadol HCl (ULTRAM) 50 MG Q6H PRN PRN PO Acetaminophen (TYLENOL) 650 MG Q4H PRN PRN PO Heparin Sodium (HEPARIN 5000 UNITS/ML) 5,000 UNI T ASDIR PRN IV Magnesium Hydroxide (MILK OF MAGNESIA) 30 ML BED TIME PRN PRN PO (DC) Nitroglycerin (NITROSTAT) 0.4 MG Q5M PRN PRN SL Ondansetron HCl (ZOFRAN) 4 MG Q6H PRN PRN IV Physical Exam General appearance: alert, no acute distress Head/eyes: atraumatic, normocephalic ENT: normal nose Neck: non-tender, supple/no meningismus Cardiovascular: normal heart sounds, no rub Respiratory: aerating well, symmetric expansion Abdomen: non-tender, soft Genitourinary: no flank pain Extremities: pitting edema, non-tender Musculoskeletal: no CVA tenderness, no tendernes s Neuro/SURGICAL SPECIALIST: alert, normal speech Skin: dry, intact Ulcer: Type/cause: diabetic, arterial Location: foot (bilateral toes) Results Findings/Data: Laboratory Tests 06/25 06/25 06/24 06/24 06/24 0623 0541 1858 1523 1242 Chemistry Sodium (134 - 147 mEq/L) 137 Potassium (3.4 - 5.0 mEq/L) 4.3 Chloride (100 - 108 mEq/L) 97 L Carbon Dioxide (21 - 33 mEq/l) 25 Anion Gap (0 - 20) 19 BUN (7 - 18 mg/dL) 31 H Creatinine (0.6 - 1.3 mg/dL) 4.5 H Glomerular Filtr Rate (80 - 90) 10.2 L Glucose (70 - 110 mg/dL) 169 H POC Glucose (70 - 110 MG/DL) 159 H 171 H 159 H 110 Calcium (8.0 - 10.5 mg/dL) 9.5 Total Bilirubin (0.0 - 1.0 mg/dL) 0.50 AST (15 - 37 IUnit/L) 22 ALT (30 - 65 IUnit/L) 79 H Total Alk Phosphatase (20 - 125 IUnit/L) 272 H Total Protein (6.4 - 8.2 g/dL) 6.5 Albumin (3.4 - 5.0 g/dL) 3.30 L Diagnosis, Assessment Plan Free Text A P: Patient seen and evaluated, discussed with care team, images and laboratories reviewed. End-stage renal disease on c hronic hemodialysis, Sunday, and Sunday, plan for hemodialysis today Status post left heart cath with multi-vessel co ronary artery disease, respiratory evaluation for CABG. Hypertension: Monitor blood pressure closely and adjust medications as needed Hyperlipidemia: Lipitor Diabetes mellitus: Insulin: Monitor blood sugar closely adjust medications as needed Anemia: We will start Epogen 4000 subcu 3 times a week Elevated alkaline phosphatase we will check PTH. 06/23/2022 plan for filtration today if her bloo d pressure allows, had hemodialysis yesterday. See showed hemoglobin 9. 1, platelet 136, blood count 12.1. We will increase Epoge n to 6000 subcu 3 times a week, PTH 660 we will add Rocaltrol 0.5 mcg p.o. daily, will add midodrine 5 mg p.o. 3 times daily to allow for ultrafiltration. 06/24/2022 laboratory for th is morning showed sodium 136, potassium 4.9, CO2 23, BUN 50, creatinine 5.8, phos phorus 7.1 we will add Renvela 2 p.o. with each meal , hemoglobin 9.3, platelet 152, blood count 13.3 , for hemodialysis today, 4 hours, 2K, ultrafiltration 3 to 4 L if tolerated , seen during HD. 06/25/2022 laboratory this m orning showed sodium 137, potassium 4.3, CO2 25, BUN 31, creatinine 4.5, alkaline phosphatase 272, st atus post ultrafiltration yesterday, 3.9 L removed, plan for dialysis in t he morning. Electronically Signed by Jennifer Shelton MD on at 1801 RPT #:[id number] END OF REPORT 2022-06-25 06:36:00-00:00 [facility] Cardiology Progress Note REPORT#:[id number] REPORT STATUS: Signed DATE:06/25/22 TIME: 0636 PATIENT: MESERET MOTTA UNIT #: [id number] ROOM/BED: [place] [id number] : 56 AGE: 67 SEX: F ATTEND: Nidhi Ashton MD ADM AUTHOR: Dee Das MD * ALL edits or amendments must be made on the Summay/computer document * Subjective Chief complaint: No change Objective General VS/I O: 24 hour I O ending at 0700: 06/25 0700 06/24 1900 Intake Total 810.00 Output Total 0 Balance 810.00 Intake, IV 10.00 Intake, Oral 800 Number 0 Bowel Movements Number Voids 2 Output, Emesis Output, Stool 0 Vital Signs: Date Time Temp Pulse Resp B/P B/P Pulse O2 O2 F low FiO2 Mean Ox Delivery Rate 06/25 0405 98.1 69 17 102/59 72.9 98 06/24 2313 98.1 65 15 116/64 81.4 98 06/24 2000 Nasal 4 cannula 06/24 1859 97.7 71 14 133/76 95.0 98 06/24 1526 97.9 74 18 114/73 0.0 99 Nasal 2 cannula 06/24 1230 95 Nasal 2 cannula 06/24 0829 Nasal 4 cannula 06/24 0743 98.2 66 18 112/67 82.1 100 Nasal 2 cannula PATIENT WEIGHT: Weight (lb): 245 Weight (oz): 9.52 Weight (kg): 111.13 Medications: Active Meds + DC'd Last 24 Hrs Sodium Chloride (SODIUM CHLORIDE 0.9%) 1,000 ML .[id number] ONE IV (CAN) Epoetin Vanesa-epbx (RETACRIT) 6,000 UNIT TuThSa@2 100 SUBQ Sevelamer Carbonate (RENVELA) 1,600 MG C MEALS P O Clopidogrel Bisulfate (Plavix) 75 MG DAILY PO Mupirocin (BACTROBAN 2% 22 GM OINTMENT) 1 APPLIC BID TOPICAL Ceftriaxone Sodium (ROCEPHIN 1000MG VIAL) 1,000 MG Q24H IV Sodium Chloride (SODIUM CHLORIDE) 10 ML Calcitriol (RocaltroL) 0.5 MCG DAILY PO Midodrine (PROAMATINE) 5 MG 0900,1300,1700 PO Levothyroxine Sodium (LEVOTHYROXINE SODIUM) 150 MCG DAILY 0600 PO Buspirone HCl (BUSPAR) 5 MG BID PO Epoetin Vanesa-epbx (RETACRIT) 4,000 UNIT TuThSa@2 100 SUBQ (DC) Metoprolol Tartrate (LOPRESSOR) 12.5 MG Q12HR PO Pantoprazole (PROTONIX) 40 MG 0600,1800 PO Midodrine (PROAMATINE) 10 MG DIALYSIS-DOSE BEFO RE PO (CKD) Albumin Human (ALBUMINAR-25%) 12.5 GM ASDIR PRN IV Heparin Sodium (Porcine) (HEPARIN SODIUM) 3,000 UNIT ASDIR PRN DIALYSIS Lidocaine HCl (LIDOCAINE HCL/PF) 0.5 ML ASDIR DC N I-DERMAL (CKD) Mannitol (MANNITOL 25% 12.5GM/50ML) 12.5 GM ASDI R PRN IV Sodium Chloride (SODIUM CHLORIDE 0.9%) 2,000 ML ASDIR PRN IV Sodium Chloride (SODIUM CHLORIDE) 5 ML ASDIR PRN IV Sodium Chloride (SODIUM CHLORIDE) 10 ML ASDIR DC N IV Sodium Chloride (SODIUM CHLORIDE 0.9%) 250 ML DIR PRN IV Aspirin (ASPIRIN) 81 MG C BK PO Atorvastatin Calcium (LIPITOR) 40 MG 2100 PO Insulin Human Lispro (HUMALOG) 0 AC HS SUBQ Dextrose/Water (DEXTROSE 10% IN WATER) 125 ML DIR PRN IV (CKD) Dextrose/Water (DEXTROSE 10% IN WATER) 250 ML DIR PRN IV (CKD) Glucagon (GLUCAGON) 1 MG ASDIR PRN IM Melatonin (Melatonin) 3 MG BEDTIME PRN PRN PO Morphine Sulfate (morphine SULFATE) 2 MG Q4H PRN PRN IV Tramadol HCl (ULTRAM) 50 MG Q6H PRN PRN PO Acetaminophen (TYLENOL) 650 MG Q4H PRN PRN PO Heparin Sodium (HEPARIN 5000 UNITS/ML) 5,000 UNI T ASDIR PRN IV Magnesium Hydroxide (MILK OF MAGNESIA) 30 ML BED TIME PRN PRN PO (DC) Nitroglycerin (NITROSTAT) 0.4 MG Q5M PRN PRN SL Ondansetron HCl (ZOFRAN) 4 MG Q6H PRN PRN IV Physical Exam General appearance: alert, awake Neck: non-tender, no JVD Cardiovascular: CV assessment: regular rate and rhythm Respiratory: decreased breath sounds, on oxygen, no distress Abdomen: non-tender, obese Genitourinary: no flank pain, no urinary cathete r Lower extremity: LE assessment: abnormal capillary refill, abnor mal pedal pulse, no edema Musculoskeletal: normal inspection Neuro/SURGICAL SPECIALIST: alert, oriented X 3, normal speech Skin: scabs lower extremities Ulcer: Type/cause: diabetic, arterial Location: foot (bilateral toes) Psychiatry: normal affect, normal mood Results Findings/Data: Laboratory Tests 06/25 06/24 06/24 06/24 0541 1858 1523 1242 Chemistry POC Glucose (70 - 110 MG/DL) 159 H 171 H 159 H 110 Diagnosis, Assessment Plan Free Text DxA P Notes Free Text DxA P Notes: 67 YO female with PMHx of HTN, DM, CHF, ESRD on HD who initially presented at [facility] with SOB and fatigue. Sh regan was treated for NSTEMI and acute CHF exacerbation. 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 She is transferred her for CABG evaluation. Echo showed LVEF 50%. Cardiolology is consulted for continuity of cardiac-related care . 1. NSTEMI/Multivessel CAD continue Heparin gtt, ASA, statin, low dose meto prolol telemetry monitoring STS risk score 17%, too high risk for CABG. As per Dr. Lantigua for possib le PCI next week, will also do peripheral angiogram around that time 2. Acute on chronic Diastolic CHF volume management per nephrology echo from OSH LVEF 50% 3. ESRD on HD per nephrology 4. Diabetes mellitus per admitting team 5. Hypertension BP soft continue low-dose beta-susan for CAD 6. Toe ulcers/severe PAD LE arterial doppler - severe PAD will plan for peripheral angio next week Electronically Signed by Dee Das MD on at 0637 RPT #:[id number] END OF REPORT 2022-06-24 23:34:00-00:00 [facility] Hospitalist Progress Note REPORT#:[id number] REPORT STATUS: Signed DATE:06/24/22 TIME: 2333 PATIENT: MESERET MOTTA UNIT #: [id number] ROOM/BED: [place] [id number] : 56 AGE: 67 SEX: F ATTEND: Nidhi Ashton MD ADM AUTHOR: Stacy Segal MD * ALL edits or amendments must be made on the el [employer]/computer document * Subjective Chief complaint: no acute complaints Objective General VS/I O: Vital Signs: Date Time Temp Pulse Resp B/P B/P Pulse O2 O2 F low FiO2 Mean Ox Delivery Rate 06/24 2313 98.1 65 15 116/64 81.4 98 06/24 2000 Nasal 4 cannula 06/24 1859 97.7 71 14 133/76 95.0 98 06/24 1526 97.9 74 18 114/73 0.0 99 Nasal 2 cannula 06/24 1230 95 Nasal 2 cannula 06/24 0829 Nasal 4 cannula 06/24 0743 98.2 66 18 112/67 82.1 100 Nasal 2 cannula 06/24 0535 97.3 69 16 123/72 89.2 91 Room air 24 hour I O ending at 0700: 06/24 0700 12/16 1900 Intake Total 1000 Output Total 200 3910 Balance -200 -2910 Intake, Oral 1000 Output, 3900 Hemodialysis Output, Urine 200 10 Patient 245 lb Weight Weight Bed scale Measurement Method PATIENT WEIGHT: Weight (lb): 245 Weight (oz): 9.52 Weight (kg): 111.13 Medications: Active Meds + DC'd Last 24 Hrs Sodium Chloride (SODIUM CHLORIDE 0.9%) 1,000 ML .[id number] ONE IV (CAN) Epoetin Vanesa-epbx (RETACRIT) 6,000 UNIT TuThSa@2 100 SUBQ Sevelamer Carbonate (RENVELA) 1,600 MG C MEALS PO Clopidogrel Bisulfate (Plavix) 75 MG DAILY PO Mupirocin (BACTROBAN 2% 22 GM OINTMENT) 1 APPLIC BID TOPICAL Ceftriaxone Sodium (ROCEPHIN 1000MG VIAL) 1,000 MG Q24H IV Sodium Chloride (SODIUM CHLORIDE) 10 ML Calcitriol (RocaltroL) 0.5 MCG DAILY PO Midodrine (PROAMATINE) 5 MG 0900,1300,1700 PO Levothyroxine Sodium (LEVOTHYROXINE SODIUM) 150 MCG DAILY 0600 PO Buspirone HCl (BUSPAR) 5 MG BID PO Epoetin Vanesa-epbx (RETACRIT) 4,000 UNIT TuThSa@2 100 SUBQ (DC) Metoprolol Tartrate (LOPRESSOR) 12.5 MG Q12HR PO Pantoprazole (PROTONIX) 40 MG 0600,1800 PO Midodrine (PROAMATINE) 10 MG DIALYSIS-DOSE BEFOR E PO (CKD) Albumin Human (ALBUMINAR-25%) 12.5 GM ASDIR PRN IV Heparin Sodium (Porcine) (HEPARIN SODIUM) 3,000 UNIT ASDIR PRN DIALYSIS Lidocaine HCl (LIDOCAINE HCL/PF) 0.5 ML ASDIR DC N I-DERMAL (CKD) Mannitol (MANNITOL 25% 12.5GM/50ML) 12.5 GM ASDI R PRN IV Sodium Chloride (SODIUM CHLORIDE 0.9%) 2,000 ML ASDIR PRN IV Sodium Chloride (SODIUM CHLORIDE) 5 ML ASDIR PRN IV Sodium Chloride (SODIUM CHLORIDE) 10 ML ASDIR DC N IV Sodium Chloride (SODIUM CHLORIDE 0.9%) 250 ML DIR PRN IV Aspirin (ASPIRIN) 81 MG C BK PO Atorvastatin Calcium (LIPITOR) 40 MG 2100 PO Insulin Human Lispro (HUMALOG) 0 AC HS SUBQ Dextrose/Water (DEXTROSE 10% IN WATER) 125 ML DIR PRN IV (CKD) Dextrose/Water (DEXTROSE 10% IN WATER) 250 ML DIR PRN IV (CKD) Glucagon (GLUCAGON) 1 MG ASDIR PRN IM Melatonin (Melatonin) 3 MG BEDTIME PRN PRN PO Morphine Sulfate (morphine SULFATE) 2 MG Q4H PRN PRN IV Tramadol HCl (ULTRAM) 50 MG Q6H PRN PRN PO Acetaminophen (TYLENOL) 650 MG Q4H PRN PRN PO Heparin Sodium (HEPARIN 5000 UNITS/ML) 5,000 UNI T ASDIR PRN IV Magnesium Hydroxide (MILK OF MAGNESIA) 30 ML BED TIME PRN PRN PO (DC) Nitroglycerin (NITROSTAT) 0.4 MG Q5M PRN PRN SL Ondansetron HCl (ZOFRAN) 4 MG Q6H PRN PRN IV Physical Exam General appearance: no acute distress ENT: moist mucosal membranes Neck: supple/no meningismus, no JVD Cardiovascular: normal heart sounds, regular rat e rhythm, no murmur Respiratory: aerating well, clear to auscultatio n, symmetric expansion Abdomen: non-tender, normal bowel sounds, soft, no distention Extremities: edema, moves all Neuro/SURGICAL SPECIALIST: alert, oriented X 3, normal speech, n o motor deficits Ulcer: Type/cause: diabetic, arterial Location: foot (bilateral toes) Results Findings/Data: Laboratory Tests 06/24 06/24 06/24 06/24 06/24 1858 1523 1242 0630 0532 Chemistry Sodium (134 - 147 mEq/L) 136 Potassium (3.4 - 5.0 mEq/L) 4.9 Chloride (100 - 108 mEq/L) 96 L Carbon Dioxide (21 - 33 mEq/l) 23 Anion Gap (0 - 20) 22 H BUN (7 - 18 mg/dL) 50 H Creatinine (0.6 - 1.3 mg/dL) 5.8 H Glomerular Filtr Rate (80 - 90) 7.5 L Glucose (70 - 110 mg/dL) 218 H POC Glucose (70 - 110 MG/DL) 171 H 159 H 110 19 0 H Calcium (8.0 - 10.5 mg/dL) 9.9 Phosphorus (2.5 - 4.9 MG/DL) 7.1 H Magnesium (1.80 - 2.40 mg/dL) 2.64 H Laboratory Tests 06/24 0630 Hematology WBC (4.5 - 11.0 x10 3/uL) 13.3 H RBC (3.54 - 5.02 x10 6/uL) 3.02 L Hgb (11.0 - 15.0 g/dL) 9.3 L Hct (33.0 - 45.0 %) 30.9 L MCV (81.0 - 99.0 fL) 102.3 H MCH (27.0 - 33.0 pg) 30.8 MCHC (33.0 - 37.0 g/dL) 30.1 L RDW (11.5 - 14.5 %) 16.5 H Plt Count (150 - 400 x10 3/uL) 152 MPV (7.0 - 9.0 fL) 9.7 H Neut % (Auto) (56.0 - 77.0 %) 83.8 H Lymph % (Auto) (14.0 - 32.0 %) 5.3 L Kerr % (Auto) (4.8 - 9.0 %) 8.3 Eos % (Auto) (0.3 - 3.7 %) 1.9 Baso % (Auto) (0.0 - 2.0 %) 0.2 Neut # (Auto) (2.0 - 7.6 x10 3/uL) 11.18 H Lymph # (Auto) (1.0 - 3.8 x10 3/uL) 0.70 L Kerr # (Auto) (0.1 - 0.8 x10 3/uL) 1.10 H Eos # (Auto) (0.0 - 0.2 x10 3/uL) 0.25 H Baso # (Auto) (0.0 - 0.2 x10 3/uL) 0.03 Abs Immat Gran (auto) (0.00 - 0.03 x10 3/uL) 0. 07 H Add Manual Diff NO Immature Gran % (0.0 - 2.0 %) 0.5 Nucleated RBC % (0 - 0 %) 0.0 Nucleated RBCs # (Man) (0.0 - 0.1 x10 3/uL) 0.0 0 Diagnosis, Assessment Plan Free Text DxA P Notes Free text DxA P notes: Three-vessel coronary artery disease CV surgery following. Pending decision for surg eboni Continue heparin drip Continue on aspirin and atorvastatin cardiology following Acute respiratory failure with hypoxemia Patient presented with supplemental nasal cannu la oxygen -Secondary to pulmonary edema -Pulm consulted Elevated LFTs Secondary to hepatic congestion Monitor LFTs Presumed UTI -Start Rocephin -UA ordered. 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 Electronically Signed by Stacy Segal MD on 1 08/25/21 at 2335 RPT #:[id number] END OF REPORT 2022-06-24 17:15:00-00:00 [facility] Wound Care Progress Note REPORT#:[id number] REPORT STATUS: Signed DATE:06/24/22 TIME: 1715 PATIENT: MESERET MOTTA UNIT #: [id number] ROOM/BED: [place] [id number] : 56 AGE: 67 SEX: F ATTEND: Nidhi Ashton MD ADM AUTHOR: Sybil Byers MD * ALL edits or amendments must be made on the [employer]/computer document * Subjective Chief complaint: Woundcare FU for foot, hand leg ulcers; c/o sl S OB, but no extremity pain. Objective General Medications: Active Meds + DC'd Last 24 Hrs Sodium Chloride (SODIUM CHLORIDE 0.9%) 1,000 ML .[id number] ONE IV (CAN) Epoetin Vanesa-epbx (RETACRIT) 6,000 UNIT TuThSa@2 100 SUBQ Sevelamer Carbonate (RENVELA) 1,600 MG C MEALS P O Clopidogrel Bisulfate (Plavix) 75 MG DAILY PO Mupirocin (BACTROBAN 2% 22 GM OINTMENT) 1 APPLIC BID TOPICAL Ceftriaxone Sodium (ROCEPHIN 1000MG VIAL) 1,000 MG Q24H IV Sodium Chloride (SODIUM CHLORIDE) 10 ML Calcitriol (RocaltroL) 0.5 MCG DAILY PO Midodrine (PROAMATINE) 5 MG 0900,1300,1700 PO Levothyroxine Sodium (LEVOTHYROXINE SODIUM) 150 MCG DAILY 0600 PO Buspirone HCl (BUSPAR) 5 MG BID PO Epoetin Vanesa-epbx (RETACRIT) 4,000 UNIT TuThSa@2 100 SUBQ (DC) Metoprolol Tartrate (LOPRESSOR) 12.5 MG Q12HR PO Pantoprazole (PROTONIX) 40 MG 0600,1800 PO Midodrine (PROAMATINE) 10 MG DIALYSIS-DOSE BEFOR E PO (CKD) Albumin Human (ALBUMINAR-25%) 12.5 GM ASDIR PRN IV Heparin Sodium (Porcine) (HEPARIN SODIUM) 3,000 UNIT ASDIR PRN DIALYSIS Lidocaine HCl (LIDOCAINE HCL/PF) 0.5 ML ASDIR DC N I-DERMAL (CKD) Mannitol (MANNITOL 25% 12.5GM/50ML) 12.5 GM ASD IR PRN IV Sodium Chloride (SODIUM CHLORIDE 0.9%) 2,000 ML ASDIR PRN IV Sodium Chloride (SODIUM CHLORIDE) 5 ML ASDIR PRN IV Sodium Chloride (SODIUM CHLORIDE) 10 ML ASDIR DC N IV Sodium Chloride (SODIUM CHLORIDE 0.9%) 250 ML DIR PRN IV Aspirin (ASPIRIN) 81 MG C BK PO Atorvastatin Calcium (LIPITOR) 40 MG 2100 PO Insulin Human Lispro (HUMALOG) 0 AC HS SUBQ Dextrose/Water (DEXTROSE 10% IN WATER) 125 ML DIR PRN IV (CKD) Dextrose/Water (DEXTROSE 10% IN WATER) 250 ML DIR PRN IV (CKD) Glucagon (GLUCAGON) 1 MG ASDIR PRN IM Melatonin (Melatonin) 3 MG BEDTIME PRN PRN PO Morphine Sulfate (morphine SULFATE) 2 MG Q4H PRN PRN IV Tramadol HCl (ULTRAM) 50 MG Q6H PRN PRN PO Acetaminophen (TYLENOL) 650 MG Q4H PRN PRN PO Heparin Sodium (HEPARIN 5000 UNITS/ML) 5,000 UNI T ASDIR PRN IV Magnesium Hydroxide (MILK OF MAGNESIA) 30 ML BED TIME PRN PRN PO (DC) Nitroglycerin (NITROSTAT) 0.4 MG Q5M PRN PRN SL Ondansetron HCl (ZOFRAN) 4 MG Q6H PRN PRN IV Dietitian Nutrition assessment The data set between the solid lines has been im ported from the dietitian's assessment. BMI Calculated: 39.6 Nutrition related diagnosis: Nutrition diagnosis details: Nutrition problem: Nutrition etiology: Nutrition signs and symptoms: Nutrition prescription: Dietitian name: Assessment completed: Physical Exam General appearance: alert, awake Skin: Multiple PT ulcers abrasions on B hands, B feet, L>R, w erythema 0ver L dorsum foot L forefoot. Ulcers on dorsum toes, L >R, w erythema @ forefoot, piunched-out appearance suggestive of arterial u lcers. Weak pulses. Ulcer: Type/cause: diabetic, arterial Location: foot (bilateral toes) Results Findings/Data: Microbiology: 06/23 1811 FOOT: Wound Culture - RES 06/23 1614 URINE: Urine Culture - RES Current Medications Sig/Enedina Start time Last Medication Dose Route Stop Time Status Admin Sodium Chloride 1,000 ML .[id number] ONE 06/25 1800 CAN IV 06/26 0719 Epoetin Vanesa-epbx 6,000 UNIT TuThSa@2100 06/24 2 100 AC 06/24 SUBQ 07/24 Sevelamer Carbonate 1,600 MG C MEALS 06/24 1200 AC 06/24 PO 01/16 1159 1727 Clopidogrel 75 MG DAILY 06/23 1800 AC 06/24 Bisulfate PO 07/23 1759 1426 Mupirocin 1 APPLIC BID 06/23 1800 AC 06/24 TOPICAL 06/28 1759 2103 Ceftriaxone Sodium 1,000 MG Q24H 06/23 1330 AC 1 08/25 Sodium Chloride 10 ML IV 06/30 1329 1425 Calcitriol 0.5 MCG DAILY 06/23 0900 AC 06/24 PO 07/23 0859 1427 Midodrine 5 MG 0900,1300,1700 06/23 0900 AC 06/08 7 PO 07/23 0859 1727 Levothyroxine Sodium 150 MCG DAILY 0600 06/23 06 00 AC 06/24 PO 07/23 0559 0546 Buspirone HCl 5 MG BID 06/22 2100 AC 06/24 PO 07/22 Epoetin Vanesa-epbx 4,000 UNIT TuThSa@2100 06/22 2 100 DC 06/22 SUBQ 06/24 2059 220 Metoprolol Tartrate 12.5 MG Q12HR 06/22 2100 AC 06/24 PO 07/22 Pantoprazole 40 MG 0600,1800 06/22 1800 AC 06/08 7 PO 07/22 175 172 Midodrine 10 MG DIALYSIS-DOSE 06/22 1545 CKD BEFORE PO 07/22 1544 1314 Albumin Human 12.5 GM ASDIR PRN 06/22 1530 AC IV 07/23 1529 1548 Heparin Sodium 3,000 UNIT ASDIR PRN 06/22 1530 A C 06/24 (Porcine) DIALYSIS 07/22 1529 0858 Lidocaine HCl 0.5 ML ASDIR PRN 06/22 1530 CKD I-DERMAL 07/23 1529 Mannitol 12.5 GM ASDIR PRN 06/22 1530 AC IV 07/23 1529 Sodium Chloride 2,000 ML ASDIR PRN 06/22 1530 AC 06/24 IV 07/23 1529 0857 Sodium Chloride 5 ML ASDIR PRN 06/22 1530 AC IV 07/22 1529 Sodium Chloride 10 ML ASDIR PRN 06/22 1530 AC IV 07/22 1529 0902 Sodium Chloride 250 ML ASDIR PRN 06/22 1530 AC IV 07/22 1529 Aspirin 81 MG C BK 06/22 0800 AC 06/24 PO 07/22 0759 1426 Atorvastatin Calcium 40 MG 2100 06/21 2100 AC PO 07/21 2058 205 Insulin Human Lispro 0 AC HS 06/21 2100 AC 06/08 7 SUBQ 07/21 205 1727 Dextrose/Water 125 ML ASDIR PRN 06/21 1900 CKD IV 07/21 185 Dextrose/Water 250 ML ASDIR PRN 06/21 1900 CKD IV 07/21 185 Glucagon 1 MG ASDIR PRN 06/21 1900 AC IM 07/21 1859 Melatonin 3 MG BEDTIME PRN PRN 06/21 1900 AC PO 07/21 185 0102 Morphine Sulfate 2 MG Q4H PRN PRN 06/21 1900 AC 06/24 IV 06/26 185 1121 Tramadol HCl 50 MG Q6H PRN PRN 06/21 1900 AC PO 06/26 185 0829 Acetaminophen 650 MG Q4H PRN PRN 06/21 1730 AC 1 08/24 PO 07/21 1729 0828 Heparin Sodium 5,000 UNIT ASDIR PRN 06/21 1730 A C 06/22 IV 07/21 1729 1449 Magnesium Hydroxide 30 ML BEDTIME PRN PRN 06/21 1730 DC 06/23 PO 07/21 1729 0842 Nitroglycerin 0.4 MG Q5M PRN PRN 06/21 1730 AC SL 07/21 1729 Ondansetron HCl 4 MG Q6H PRN PRN 06/21 1730 AC 1 08/25 IV 07/21 1729 2213 Laboratory Tests: 06/24 06/24 06/24 06/24 06/24 185 1523 1242 0630 0532 Chemistry Sodium (134 - 147 mEq/L) 136 Potassium (3.4 - 5.0 mEq/L) 4.9 Chloride (100 - 108 mEq/L) 96 L Carbon Dioxide (21 - 33 mEq/l) 23 Anion Gap (0 - 20) 22 H BUN (7 - 18 mg/dL) 50 H Creatinine (0.6 - 1.3 mg/dL) 5.8 H Glomerular Filtr Rate (80 - 90) 7.5 L Glucose (70 - 110 mg/dL) 218 H POC Glucose (70 - 110 MG/DL) 171 H 159 H 110 19 0 H Calcium (8.0 - 10.5 mg/dL) 9.9 Phosphorus (2.5 - 4.9 MG/DL) 7.1 H Magnesium (1.80 - 2.40 mg/dL) 2.64 H Hematology WBC (4.5 - 11.0 x10 3/uL) 13.3 H RBC (3.54 - 5.02 x10 6/uL) 3.02 L Hgb (11.0 - 15.0 g/dL) 9.3 L Hct (33.0 - 45.0 %) 30.9 L MCV (81.0 - 99.0 fL) 102.3 H MCH (27.0 - 33.0 pg) 30.8 MCHC (33.0 - 37.0 g/dL) 30.1 L RDW (11.5 - 14.5 %) 16.5 H Plt Count (150 - 400 x10 3/uL) 152 MPV (7.0 - 9.0 fL) 9.7 H Neut % (Auto) (56.0 - 77.0 %) 83.8 H Lymph % (Auto) (14.0 - 32.0 %) 5.3 L Kerr % (Auto) (4.8 - 9.0 %) 8.3 Eos % (Auto) (0.3 - 3.7 %) 1.9 Baso % (Auto) (0.0 - 2.0 %) 0.2 Neut # (Auto) (2.0 - 7.6 x10 3/uL) 11.18 H Lymph # (Auto) (1.0 - 3.8 x10 3/uL) 0.70 L Kerr # (Auto) (0.1 - 0.8 x10 3/uL) 1.10 H Eos # (Auto) (0.0 - 0.2 x10 3/uL) 0.25 H Baso # (Auto) (0.0 - 0.2 x10 3/uL) 0.03 Abs Immat Gran (auto) (0.00 - 0.03 0.07 H x10 3/uL) Add Manual Diff NO Immature Gran % (0.0 - 2.0 %) 0.5 Nucleated RBC % (0 - 0 %) 0.0 Nucleated RBCs # (Man) (0.0 - 0.1 0.00 x10 3/uL) Diagnosis, Assessment Plan Free Text A P: Multiple ulcers, B feet, B h ands , sp fall, w suspected arterial ulcers, B feet - Bactroban BID to all ulcers, leave open to air . Wound cx, L great toe ulcer pending. Check XR of L foot (h/o trauma/fall w ulcers). Severe PVD, BLE - angio pending[ x] Optimize Nut rition and Glycemic Control [ x] Pressure relieving inte rventions (Low Air Mattress, Prevalon boot, Turn q2h ) [ x] Nursing to implement impaired skin integrit y care plan as per skin care protocol Coordinattion of care D/W [ ] Other MD's [ ] Pat ient [ ] Family [ ] Nursing [ ] Case Management . CAD- tx per cardiology DM ESRD on HD Electronically Signed by Sybil Byers MD on at 2243 RPT #:[id number] END OF REPORT 2022-06-24 10:51:00-00:00 [facility] Progress Note REPORT#:[id number] REPORT STATUS: Signed DATE:06/24/22 TIME: 1051 PATIENT: MESERET MOTTA UNIT #: [id number] ROOM/BED: [address] : [address] AGE: 67 SEX: F ATTEND: Nidhi Ashton MD ADM AUTHOR: Jennifer Shelton MD * ALL edits or amendments must be made on the [employer]/computer document * Subjective Chief complaint: Transferred for CABG HPI: Patient seen and evaluated, discussed with care team, 67-year-old female with history of end-stage renal d isease on chronic hemodialysis Sunday, and Sunday, diabetes mellitus, peripheral arterial disease and hypertension who was transferred to [facility] for CABG. Terrence quevedo initially presented to [facility] in [place] compl aining of shortness of breath. Underwent left heart cath which showed diffuse di sease and patient was transferred for evaluation for CABG. renal consult was requ ested for management of her end-stage renal disease/ hemodialysis. Patient reports: Yes: complaints. Comments: Patient seen and evaluated, HPI no change from i nitial, feels okay. Review of Systems Constitutional: Reports: fatigue. Denies: chills, fever. Skin: Reports: swelling. Denies: rash. Allergy/Immun: Denies: hives, itching. Eyes: Denies: redness, discharge. ENT: Denies: ear drainage, ear ringing. Respiratory: Denies: hemoptysis, SOB. Cardiovascular: Denies: chest pain. Objective General VS/I O: Vital Signs: Date Time Temp Pulse Resp B/P B/P Pulse O2 O2 F low FiO2 Mean Ox Delivery Rate 06/24 0743 36.8 66 18 112/67 82.1 100 Nasal 2 cannula 06/24 0535 36.3 69 16 123/72 89.2 91 Room air 06/23 2300 Nasal 4 cannula 06/23 2240 36.6 61 16 119/72 87.7 98 Room air 06/23 1924 36.4 70 16 122/71 88.3 99 Nasal cannula 06/23 1340 36.6 65 19 104/61 97 Nasal 3 cannula 06/23 1204 36.6 69 17 102/60 74.4 98 Nasal cannula 24 hour I O ending at 0700: 06/24 0700 06/23 1900 Intake Total 1000 Output Total 200 3910 Balance -200 -2910 Intake, Oral 1000 Output, 3900 Hemodialysis Output, Urine 200 10 Patient 111.13 kg Weight Weight Bed scale Measurement Method PATIENT WEIGHT: Weight (lb): 245 Weight (oz): 9.52 Weight (kg): 111.13 Medications Active Meds + DC'd Last 24 Hrs Sodium Chloride (SODIUM CHLORIDE 0.9%) 1,000 ML .[id number] ONE IV Epoetin Vanesa-epbx (RETACRIT) 6,000 UNIT TuThSa@2 100 SUBQ Clopidogrel Bisulfate (Plavix) 75 MG DAILY PO Mupirocin (BACTROBAN 2% 22 GM OINTMENT) 1 APPLIC BID TOPICAL Ceftriaxone Sodium (ROCEPHIN 1000MG VIAL) 1,000 MG Q24H IV Sodium Chloride (SODIUM CHLORIDE) 10 ML Calcitriol (RocaltroL) 0.5 MCG DAILY PO Midodrine (PROAMATINE) 5 MG 0900,1300,1700 PO Levothyroxine Sodium (LEVOTHYROXINE SODIUM) 150 MCG DAILY 0600 PO Buspirone HCl (BUSPAR) 5 MG BID PO Epoetin Vanesa-epbx (RETACRIT) 4,000 UNIT TuThSa@2 100 SUBQ Metoprolol Tartrate (LOPRESSOR) 12.5 MG Q12HR PO Pantoprazole (PROTONIX) 40 MG 0600,1800 PO Midodrine (PROAMATINE) 10 MG DIALYSIS-DOSE BEFOR E PO (CKD) Albumin Human (ALBUMINAR-25%) 12.5 GM ASDIR PRN IV Heparin Sodium (Porcine) (HEPARIN SODIUM) 3,000 UNIT ASDIR PRN DIALYSIS Lidocaine HCl (LIDOCAINE HCL/PF) 0.5 ML ASDIR DC N I-DERMAL (CKD) Mannitol (MANNITOL 25% 12.5GM/50ML) 12.5 GM ASDI R PRN IV Sodium Chloride (SODIUM CHLORIDE 0.9%) 2,000 ML ASDIR PRN IV Sodium Chloride (SODIUM CHLORIDE) 5 ML ASDIR PRN IV Sodium Chloride (SODIUM CHLORIDE) 10 ML ASDIR DC N IV Sodium Chloride (SODIUM CHLORIDE 0.9%) 250 ML DIR PRN IV Aspirin (ASPIRIN) 81 MG C BK PO Atorvastatin Calcium (LIPITOR) 40 MG 2100 PO Insulin Human Lispro (HUMALOG) 0 AC HS SUBQ Dextrose/Water (DEXTROSE 10% IN WATER) 125 ML DIR PRN IV (CKD) Dextrose/Water (DEXTROSE 10% IN WATER) 250 ML DIR PRN IV (CKD) Glucagon (GLUCAGON) 1 MG ASDIR PRN IM Melatonin (Melatonin) 3 MG BEDTIME PRN PRN PO Morphine Sulfate (morphine SULFATE) 2 MG Q4H PRN PRN IV Tramadol HCl (ULTRAM) 50 MG Q6H PRN PRN PO Acetaminophen (TYLENOL) 650 MG Q4H PRN PRN PO Heparin Sodium (HEPARIN 5000 UNITS/ML) 5,000 UNI T ASDIR PRN IV Heparin Sodium (Porcine) (HEPARIN 25,000 UNITS/ 1/2NS 500ML) 500 ML ASDIR IV (DC) Magnesium Hydroxide (MILK OF MAGNESIA) 30 ML BED TIME PRN PRN PO Nitroglycerin (NITROSTAT) 0.4 MG Q5M PRN PRN SL Ondansetron HCl (ZOFRAN) 4 MG Q6H PRN PRN IV Physical Exam General appearance: alert, no acute distress Head/eyes: atraumatic, normocephalic ENT: normal nose Neck: non-tender, supple/no meningismus Cardiovascular: normal heart sounds, no rub Respiratory: aerating well, symmetric expansion Abdomen: non-tender, soft Genitourinary: no flank pain Extremities: pitting edema, non-tender Musculoskeletal: no CVA tenderness, no tendernes s Neuro/SURGICAL SPECIALIST: alert, normal speech Skin: dry, intact Ulcer: Type/cause: diabetic, arterial Location: foot (bilateral toes) Results Findings/Data: Laboratory Tests 06/24 06/24 06/23 06/23 06/23 0630 0532 1923 1652 1201 Chemistry Sodium (134 - 147 mEq/L) 136 Potassium (3.4 - 5.0 mEq/L) 4.9 Chloride (100 - 108 mEq/L) 96 L Carbon Dioxide (21 - 33 mEq/l) 23 Anion Gap (0 - 20) 22 H BUN (7 - 18 mg/dL) 50 H Creatinine (0.6 - 1.3 mg/dL) 5.8 H Glomerular Filtr Rate (80 - 90) 7.5 L Glucose (70 - 110 mg/dL) 218 H POC Glucose (70 - 110 MG/DL) 190 H 159 H 167 H 147 H Calcium (8.0 - 10.5 mg/dL) 9.9 Phosphorus (2.5 - 4.9 MG/DL) 7.1 H Magnesium (1.80 - 2.40 mg/dL) 2.64 H Laboratory Tests 06/23 1123 Coagulation PTT (Milena) (25.0 - 39.5 Seconds) 72.0 H Laboratory Tests 06/24 0630 Hematology WBC (4.5 - 11.0 x10 3/uL) 13.3 H RBC (3.54 - 5.02 x10 6/uL) 3.02 L Hgb (11.0 - 15.0 g/dL) 9.3 L Hct (33.0 - 45.0 %) 30.9 L MCV (81.0 - 99.0 fL) 102.3 H MCH (27.0 - 33.0 pg) 30.8 MCHC (33.0 - 37.0 g/dL) 30.1 L RDW (11.5 - 14.5 %) 16.5 H Plt Count (150 - 400 x10 3/uL) 152 MPV (7.0 - 9.0 fL) 9.7 H Neut % (Auto) (56.0 - 77.0 %) 83.8 H Lymph % (Auto) (14.0 - 32.0 %) 5.3 L Kerr % (Auto) (4.8 - 9.0 %) 8.3 Eos % (Auto) (0.3 - 3.7 %) 1.9 Baso % (Auto) (0.0 - 2.0 %) 0.2 Neut # (Auto) (2.0 - 7.6 x10 3/uL) 11.18 H Lymph # (Auto) (1.0 - 3.8 x10 3/uL) 0.70 L Kerr # (Auto) (0.1 - 0.8 x10 3/uL) 1.10 H Eos # (Auto) (0.0 - 0.2 x10 3/uL) 0.25 H Baso # (Auto) (0.0 - 0.2 x10 3/uL) 0.03 Abs Immat Gran (auto) (0.00 - 0.03 x10 3/uL) 0. 07 H Add Manual Diff NO Immature Gran % (0.0 - 2.0 %) 0.5 Nucleated RBC % (0 - 0 %) 0.0 Nucleated RBCs # (Man) (0.0 - 0.1 x10 3/uL) 0.0 0 Laboratory Tests 06/23 1614 Urines Urine Color (YEL/STRAW) MARIAH H Urine Appearance (CLEAR) CLOUDY H Urine pH (5.0 - 7.0) 5.0 Ur Specific [place] (1.005 - 1.030) 1.028 Urine Protein (NEGATIVE) 3+ H Urine Glucose (UA) (NEGATIVE) 1+ H Urine Ketones (NEGATIVE) TRACE H Urine Blood (NEGATIVE) 2+ H Urine Nitrite (NEGATIVE) NEGATIVE Urine Bilirubin (NEGATIVE) NEGATIVE Urine Urobilinogen (0.2 - 1.0 mg/dL) 0.2 Ur Leukocyte Esterase (NEGATIVE) 3+ H Urine RBC (0 - 3 RBC/HPF) 21-50 Urine WBC (0 - 3 WBC/HPF) >50 H Ur Squamous Epith Cells (NONE SEEN /HPF) 36-50 H Urine Bacteria (NONE SEEN /HPF) 1+ H Urine Mucus (NONE SEEN /LPF) TRACE Diagnosis, Assessment Plan Free Text A P: Patient seen and evaluated, discussed with care team, images and laboratories reviewed. End-stage renal disease on c hronic hemodialysis, Sunday, and Sunday, plan for hemodialysis today Status post left heart cath with multi-vessel co ronary artery disease, respiratory evaluation for CABG. Hypertension: Monitor blood pressure closely and adjust medications as needed Hyperlipidemia: Lipitor Diabetes mellitus: Insulin: Monitor blood sugar closely adjust medications as needed Anemia: We will start Epogen 4000 subcu 3 times a week Elevated alkaline phosphatase we will check PTH. 06/23/2022 plan for filtration today if her bloo d pressure allows, had hemodialysis yesterday. See showed hemoglobin 9. 1, platelet 136, blood count 12.1. We will increase Epoge n to 6000 subcu 3 times a week, PTH 660 we will add Rocaltrol 0.5 mcg p.o. daily, will add midodrine 5 mg p.o. 3 times daily to allow for ultrafiltration. 06/24/2022 laboratory for th is morning showed sodium 136, potassium 4.9, CO2 23, BUN 50, creatinine 5.8, phos phorus 7.1 we will add Renvela 2 p.o. with each meal , hemoglobin 9.3, platelet 152, blood count 13.3 , for hemodialysis today, 4 hours, 2K, ultrafiltration 3 to 4 L if tolerated , seen during HD. Electronically Signed by Jennifer Shelton MD on at 1242 RPT #:[id number] END OF REPORT 2022-06-24 10:46:00-00:00 [facility]) Cardiothoracic Surgery Prog REPORT#:[id number] REPORT STATUS: Signed DATE:06/24/22 TIME: 1046 PATIENT: MESERET MOTTA UNIT #: [id number] ROOM/BED: [place] [address] : 56 AGE: 67 SEX: F ATTEND: Adonis Gaytan MD ADM AUTHOR: Aleja Funk * ALL edits or amendments must be made on the el [employer]/computer document * Subjective Chief complaint: Shortness of Breath, CAD, Dyspnea with exertion, CAD Review of Systems Constitutional: Denies: fatigue, generalized weakness. Skin: Denies: bruising, contusion. Allergy/Immun: Denies: itching, rhinorrhea. Eyes: Denies: itching, diplopia. Respiratory: Reports: STEELE (dyspnea on exertion), SOB. Cardiovascular: Reports: STEELE (dyspnea on exertion). Denies: ches t pain, palpitations. GI: Denies: constipation, diarrhea. : Denies: dysuria, hematuria. Heme: Denies: bleeding, bruising. Endocrine: Denies: polyuria. Neuro: Denies: bladder dysfunction, confusion, dizzines s. All systems rev neg: except as marked Objective General VS/I O Last Documented: Result Date Time Pulse Ox 100 06/25 1933 B/P 128/77 06/25 1933 B/P Mean 93.6 06/25 1933 Temp 97.9 06/25 1933 Pulse 88 06/25 1933 Resp 14 06/25 1933 O2 Delivery Nasal cannula 06/25 1536 O2 Flow Rate 3 06/25 1536 24 hour I O ending at 0700: 06/25 0700 06/24 1900 Intake Total 810.00 Output Total 0 Balance 810.00 Intake, IV 10.00 Intake, Oral 800 Number 0 Bowel Movements Number Voids 2 Output, Emesis Output, Stool 0 PATIENT WEIGHT: Weight (lb): 245 Weight (oz): 9.52 Weight (kg): 111.13 Physical Exam General appearance: alert, awake, oriented HEENT: mucosal membranes moist Neck: full range of motion, non-tender Cardiovascular: normal heart sounds, regular rat e rhythm Respiratory: shortness of breath, wheezing, melchor r to auscultation Abdomen: soft, non-tender Genitourinary: no bladder distention, no lemons Extremities: dry, moves all Neuro/SURGICAL SPECIALIST: alert, oriented X 3 Skin: dry, intact Ulcer: Type/cause: diabetic, arterial Location: foot (bilateral toes) Diagnosis, Assessment Plan Hospital course to date: Free Text A P: 67 year old with PMH of insu david dependant Diabetes x 10 years, on dialysis 2 1/2 years, with multiple failed fistulas (3) and mul tiple dialysis catheters placements on both right (7) and left (10) subcl floresita, peripheral vascular disease, hypothyroidism, neuropathy, kid tammy stones, presents for evaluation of coronary artery disease. She reports symptoms of shortness of breath with exertion and at rest that has been worsening ove r the past 1 year. She states over the past several months she has been unable to lay flat without dyspnea. She admits to bilateral lower extremity swelling . She completes dialysis on and Saturdays. She has attempted PD dialysis, however could not complete due to her neuropathy in her hands. She has a hx of PVD, with bilateral leg wounds i n her feet which have been present for the past 6+ months. She denies any previous inte rventions on her legs for her peripheral vascular disease. She presented to [facility] in [place] with complaints of dyspnea on exe rtion and rest. Review of her records from previous hospital admission show elevated troponin with a peak of 5600. She underwent left heart catheterization which s howed multivessel coronary artery disease and subsequen tly transferred to [facility] for evaluation for coronary artery bypass surgery. She reports she quit smoking about 35 years ago. Also reports a history of multiple pneumonias over the past several years. She also has a history of kidney stones, last in 2017. Reports a family history of peripheral vascular disease, atrial fibrillation Assessment/plan 1) ESRD on dialysis- Renal consulted. 2) CAD Elevated troponin- peak 5600 Awaiting CD of heart catherization repeat echo. 3) Hypertension Continue home meds. 4) Diabetes - managed by primary 5) PVD Will obtain arterial doppler Carotid doppler ordered 6) Dyspnea/cough CT chest ordered 06/22/22 Patient resting comfortable. Denies chest pain. C/O Cough, Dyspnea Awaiting Cardiac workup. Nephrology consulted for dialysis. Consult PT/OT Obtain PFT Further recommendations to follow. 06/23/22 Resting comfortable. Denies Chest pains. C/O Cough. CT chest with small left effusion, patchy infilt rates: Edema vs Infectious process. Carotids - no significant dz, Peripheral doppler with significant PVD- non hea ling sores bilateral feet. STS score calculated 17% Case presented at complex ca se conference, recommend attempt PCI- Discussed with Car Designer. Patient seen by Dr Ashton. Discussed with Patient high risk for surgical in tervention. Planned LHC and PCI on Sunday with Car Designer. at 2014 at 1539 RPT #:[id number] END OF REPORT 2022-06-24 10:34:00-00:00 [facility] Cardiology Progress Note REPORT#:[id number] REPORT STATUS: Signed DATE:06/24/22 TIME: 1034 PATIENT: MESERET MOTTA UNIT #: [id number] ROOM/BED: [place] [id number] : 56 AGE: 67 SEX: F ATTEND: Nidhi Ashton MD ADM AUTHOR: Dee Das MD * ALL edits or amendments must be made on the [employer] document * Subjective Chief complaint: No change Objective General VS/I O: 24 hour I O ending at 0700: 06/24 0700 06/23 1900 Intake Total 1000 Output Total 200 3910 Balance -200 -2910 Intake, Oral 1000 Output, 3900 Hemodialysis Output, Urine 200 10 Patient 111.13 kg Weight Weight Bed scale Measurement Method Vital Signs: Date Time Temp Pulse Resp B/P B/P Pulse O2 O2 Flow FiO2 Mean Ox Delivery Rate 06/24 0743 98.2 66 18 112/67 82.1 100 Nasal 2 cannula 06/24 0535 97.3 69 16 123/72 89.2 91 Room air 06/23 2300 Nasal 4 cannula 06/23 2240 97.9 61 16 119/72 87.7 98 Room air 06/23 1924 97.5 70 16 122/71 88.3 99 Nasal cannula 06/23 1340 97.9 65 19 104/61 97 Nasal 3 cannula 06/23 1204 97.9 69 17 102/60 74.4 98 Nasal cannula PATIENT WEIGHT: Weight (lb): 245 Weight (oz): 9.52 Weight (kg): 111.13 Medications: Active Meds + DC'd Last 24 Hrs Sodium Chloride (SODIUM CHLORIDE 0.9%) 1,000 ML .[id number] ONE IV Epoetin Vanesa-epbx (RETACRIT) 6,000 UNIT TuThSa@2 100 SUBQ Clopidogrel Bisulfate (Plavix) 75 MG DAILY PO Mupirocin (BACTROBAN 2% 22 GM OINTMENT) 1 APPLIC BID TOPICAL Ceftriaxone Sodium (ROCEPHIN 1000MG VIAL) 1,000 MG Q24H IV Sodium Chloride (SODIUM CHLORIDE) 10 ML Calcitriol (RocaltroL) 0.5 MCG DAILY PO Midodrine (PROAMATINE) 5 MG 0900,1300,1700 PO Levothyroxine Sodium (LEVOTHYROXINE SODIUM) 150 MCG DAILY 0600 PO Buspirone HCl (BUSPAR) 5 MG BID PO Epoetin Vanesa-epbx (RETACRIT) 4,000 UNIT TuThSa@2 100 SUBQ Metoprolol Tartrate (LOPRESSOR) 12.5 MG Q12HR PO Pantoprazole (PROTONIX) 40 MG 0600,1800 PO Midodrine (PROAMATINE) 10 MG DIALYSIS-DOSE BEFOR E PO (CKD) Albumin Human (ALBUMINAR-25%) 12.5 GM ASDIR PRN IV Heparin Sodium (Porcine) (HEPARIN SODIUM) 3,000 UNIT ASDIR PRN DIALYSIS Lidocaine HCl (LIDOCAINE HCL/PF) 0.5 ML ASDIR DC N I-DERMAL (CKD) Mannitol (MANNITOL 25% 12.5GM/50ML) 12.5 GM ASDI R PRN IV Sodium Chloride (SODIUM CHLORIDE 0.9%) 2,000 ML ASDIR PRN IV Sodium Chloride (SODIUM CHLORIDE) 5 ML ASDIR PRN IV Sodium Chloride (SODIUM CHLORIDE) 10 ML ASDIR DC N IV Sodium Chloride (SODIUM CHLORIDE 0.9%) 250 ML DIR PRN IV Aspirin (ASPIRIN) 81 MG C BK PO Atorvastatin Calcium (LIPITOR) 40 MG 2100 PO Insulin Human Lispro (HUMALOG) 0 AC HS SUBQ Dextrose/Water (DEXTROSE 10% IN WATER) 125 ML DIR PRN IV (CKD) Dextrose/Water (DEXTROSE 10% IN WATER) 250 ML DIR PRN IV (CKD) Glucagon (GLUCAGON) 1 MG ASDIR PRN IM Melatonin (Melatonin) 3 MG BEDTIME PRN PRN PO Morphine Sulfate (morphine SULFATE) 2 MG Q4H PRN PRN IV Tramadol HCl (ULTRAM) 50 MG Q6H PRN PRN PO Acetaminophen (TYLENOL) 650 MG Q4H PRN PRN PO Heparin Sodium (HEPARIN 5000 UNITS/ML) 5,000 UNI T ASDIR PRN IV Heparin Sodium (Porcine) (HEPARIN 25,000 UNITS/ 1/2NS 500ML) 500 ML ASDIR IV (DC) Magnesium Hydroxide (MILK OF MAGNESIA) 30 ML BED TIME PRN PRN PO Nitroglycerin (NITROSTAT) 0.4 MG Q5M PRN PRN SL Ondansetron HCl (ZOFRAN) 4 MG Q6H PRN PRN IV Physical Exam General appearance: alert, awake Neck: non-tender, no JVD Cardiovascular: CV assessment: regular rate and rhythm Respiratory: decreased breath sounds, on oxygen, no distress Abdomen: non-tender, obese Genitourinary: no flank pain, no urinary cathete r Lower extremity: LE assessment: abnormal capillary refill, abnor mal pedal pulse, no edema Musculoskeletal: normal inspection Neuro/SURGICAL SPECIALIST: alert, oriented X 3, normal speech Skin: scabs lower extremities Ulcer: Type/cause: diabetic, arterial Location: foot (bilateral toes) Psychiatry: normal affect, normal mood Results Findings/Data: Laboratory Tests 06/24 06/24 06/23 06/23 06/23 0630 0532 1923 1652 1201 Chemistry Sodium (134 - 147 mEq/L) 136 Potassium (3.4 - 5.0 mEq/L) 4.9 Chloride (100 - 108 mEq/L) 96 L Carbon Dioxide (21 - 33 mEq/l) 23 Anion Gap (0 - 20) 22 H BUN (7 - 18 mg/dL) 50 H Creatinine (0.6 - 1.3 mg/dL) 5.8 H Glomerular Filtr Rate (80 - 90) 7.5 L Glucose (70 - 110 mg/dL) 218 H POC Glucose (70 - 110 MG/DL) 190 H 159 H 167 H 147 H Calcium (8.0 - 10.5 mg/dL) 9.9 Phosphorus (2.5 - 4.9 MG/DL) 7.1 H Magnesium (1.80 - 2.40 mg/dL) 2.64 H Laboratory Tests 06/23 1123 Coagulation PTT (Milena) (25.0 - 39.5 Seconds) 72.0 H Laboratory Tests 06/24 0630 Hematology WBC (4.5 - 11.0 x10 3/uL) 13.3 H RBC (3.54 - 5.02 x10 6/uL) 3.02 L Hgb (11.0 - 15.0 g/dL) 9.3 L Hct (33.0 - 45.0 %) 30.9 L MCV (81.0 - 99.0 fL) 102.3 H MCH (27.0 - 33.0 pg) 30.8 MCHC (33.0 - 37.0 g/dL) 30.1 L RDW (11.5 - 14.5 %) 16.5 H Plt Count (150 - 400 x10 3/uL) 152 MPV (7.0 - 9.0 fL) 9.7 H Neut % (Auto) (56.0 - 77.0 %) 83.8 H Lymph % (Auto) (14.0 - 32.0 %) 5.3 L Kerr % (Auto) (4.8 - 9.0 %) 8.3 Eos % (Auto) (0.3 - 3.7 %) 1.9 Baso % (Auto) (0.0 - 2.0 %) 0.2 Neut # (Auto) (2.0 - 7.6 x10 3/uL) 11.18 H Lymph # (Auto) (1.0 - 3.8 x10 3/uL) 0.70 L Kerr # (Auto) (0.1 - 0.8 x10 3/uL) 1.10 H Eos # (Auto) (0.0 - 0.2 x10 3/uL) 0.25 H Baso # (Auto) (0.0 - 0.2 x10 3/uL) 0.03 Abs Immat Gran (auto) (0.00 - 0.03 x10 3/uL) 0 .07 H Add Manual Diff NO Immature Gran % (0.0 - 2.0 %) 0.5 Nucleated RBC % (0 - 0 %) 0.0 Nucleated RBCs # (Man) (0.0 - 0.1 x10 3/uL) 0.0 0 Laboratory Tests 06/23 1614 Urines Urine Color (YEL/STRAW) MARIAH H Urine Appearance (CLEAR) CLOUDY H Urine pH (5.0 - 7.0) 5.0 Ur Specific [place] (1.005 - 1.030) 1.028 Urine Protein (NEGATIVE) 3+ H Urine Glucose (UA) (NEGATIVE) 1+ H Urine Ketones (NEGATIVE) TRACE H Urine Blood (NEGATIVE) 2+ H Urine Nitrite (NEGATIVE) NEGATIVE Urine Bilirubin (NEGATIVE) NEGATIVE Urine Urobilinogen (0.2 - 1.0 mg/dL) 0.2 Ur Leukocyte Esterase (NEGATIVE) 3+ H Urine RBC (0 - 3 RBC/HPF) 21-50 Urine WBC (0 - 3 WBC/HPF) >50 H Ur Squamous Epith Cells (NONE SEEN /HPF) 36-50 H Urine Bacteria (NONE SEEN /HPF) 1+ H Urine Mucus (NONE SEEN /LPF) TRACE Laboratory Tests 06/24 0630 Chemistry Magnesium (1.80 - 2.40 mg/dL) 2.64 H Diagnosis, Assessment Plan Free Text DxA P Notes Free Text DxA P Notes: 67 YO female with PMHx of HTN, DM, CHF, ESRD on HD who initially presented at [facility] with SOB and fatigue. Sh regan was treated for NSTEMI and acute CHF exacerbation. 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 She is transferred her for CABG evaluation. Echo showed LVEF 50%. Cardiolology is consulted for continuity of cardiac-related care . 1. NSTEMI/Multivessel CAD continue Heparin gtt, ASA, statin, low dose meto prolol telemetry monitoring STS risk score 17%, too high risk for CABG. As per Dr. Lantigua for possib le PCI next week, will also do peripheral angiogram around that time 2. Acute on chronic Diastolic CHF volume management per nephrology echo from OSH LVEF 50% 3. ESRD on HD per nephrology 4. Diabetes mellitus per admitting team 5. Hypertension BP soft continue low-dose beta-susan for CAD 6. Toe ulcers/severe PAD LE arterial doppler - severe PAD will plan for peripheral angio next week Electronically Signed by Dee Das MD on at 1035 [facility] #:[id number] END OF REPORT 2022-06-23 17:02:00-00:00 [facility] ([facility]) Wound Care Consultation Note REPORT#:[id number] REPORT STATUS: Signed DATE:06/23/22 TIME: 1701 PATIENT: MESERET MOTTA UNIT #: [id number] ROOM/BED: [place] [id number] : 56 AGE: 67 SEX: F ATTEND: Nidhi Ashton MD ADM AUTHOR: Sybil Byers MD * ALL edits or amendments must be made on the el [employer]/computer document * History of Present Illness Reason for consult: wounds/ulcers on B hands, feet, legs Chief complaint: Woundcare for foot, hand leg ulcers HPI: 67 YO female with PMHx of HTN, DM, CHF, ESRD on HD who initially presented at [facility] with SOB and fatigue. Sh regan was treated for NSTEMI and acute CHF exacerbation. 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 She is transferred to [facility] for CABG evaluation. Echo showed LVEF 50%. MORPHOLOGIST is pending. Patient reports she fell 1 month ago, developed ulcers/ abrasions on B hands, legs feet. Redness over L foot noted x few days. No fever. Past medical history: Reports: Atrial fibrillation (self diagnosis), Diabetes mellitus, Hypertension, Kidney disease/stones, Dyslipidemia (esrd). Additional medical history: ESRD on dialysis Past surgical history: Reports: Cholecystectomy, . Additional surgical history: Fistula X 3 Multiple Diaslysis subclavian catheter placemnet s. back and neck urgery Additional family history: Atrial fibrillation, PVD Alcohol use: Denies EtOH use Smoking status for patients 13 years old or olde r: Former Smoker Home medications: Home Medications: LISINOPRIL (ZESTRIL) #90 - SIG Obtained From Nyasia shin LEVOTHYROXINE (SYNTHROID) #90 - SIG Obtained Fro Ava busPIRone (BUSPIRONE) 5 MG PO ONCE FAMOTIDINE (PEPCID) 40 MG PO DAILY amLODIPine (NORVASC) 10 MG PO DAILY METOPROLOL SUCC XL (TOPROL XL) 50 MG PO DAILY PANTOPRAZOLE DR (PROTONIX) 40 MG PO BID MUPIROCIN (BACTROBAN 2%) 1 APPLIC TOPICAL BID Allergies: Coded Allergies: codeine (06/06/01) DRUG INGREDIENT Enzo CODEINE Uncoded Allergies: CODEINE (HALLUCINATION 01/08/09) No Known Contrast Allergies (01/08/09) No Known Food Allergies (01/08/09) No Known Other Allergies (01/08/09) Ambulatory status: Wheelchair History Past History Allergies: Coded Allergies: codeine (06/06/01) DRUG INGREDIENT Enzo CODEINE Uncoded Allergies: CODEINE (HALLUCINATION 01/08/09) No Known Contrast Allergies (01/08/09) No Known Food Allergies (01/08/09) No Known Other Allergies (01/08/09) Objective VS/I O: Last Documented: Result Date Time Pulse Ox 97 06/23 1340 B/P 104/61 06/23 1340 O2 Delivery Nasal cannula 06/23 1340 O2 Flow Rate 3 06/23 1340 Temp 97.9 06/23 1340 Pulse 65 06/23 1340 Resp 19 06/23 1340 B/P Mean 74.4 06/23 1204 24 hour I O ending at 0700: 06/23 0700 06/22 1900 Intake Total 300 Output Total 3050 200 Balance -3050 100 Intake, Oral 300 Output, 3050 Hemodialysis Output, Urine 200 General appearance: obese, awake Skin: Multiple abrasions PT ulcers on dorsum clifford ds. Multiple ulcers on dorsum L foot, over an area of abt3x2 cm, dorsum toes, circumscribed w erythematous base. R dorsum foot ulcers ulcers on R great toe , 2 3rd toes, sl erythema, 1+ edema. Weak DP pulses. Results Findings/Data: Laboratory Tests: 06/23 06/23 06/23 06/23 06/23 1652 1614 1201 1123 0409 Chemistry POC Glucose (70 - 110 MG/DL) 167 H 147 H Coagulation PTT (Milena) (25.0 - 39.5 Seconds) 72.0 H 53.5 H Urines Urine Color (YEL/STRAW) MARIAH H Urine Appearance (CLEAR) CLOUDY H Urine pH (5.0 - 7.0) 5.0 Ur Specific [place] (1.005 - 1.030) 1.028 Urine Protein (NEGATIVE) 3+ H Urine Glucose (UA) (NEGATIVE) 1+ H Urine Ketones (NEGATIVE) TRACE H Urine Blood (NEGATIVE) 2+ H Urine Nitrite (NEGATIVE) NEGATIVE Urine Bilirubin (NEGATIVE) NEGATIVE Urine Urobilinogen (0.2 - 1.0 mg/dL) 0.2 Ur Leukocyte Esterase (NEGATIVE) 3+ H Urine RBC (0 - 3 RBC/HPF) 21-50 Urine WBC (0 - 3 WBC/HPF) >50 H Ur Squamous Epith Cells (NONE SEEN 36-50 H /HPF) Urine Bacteria (NONE SEEN /HPF) 1+ H Urine Mucus (NONE SEEN /LPF) TRACE 06/23 06/23 06/22 06/22 06/22 0408 0400 2149 2050 1832 Chemistry POC Glucose (70 - 110 MG/DL) 246 H 186 H 125 H Coagulation PTT (Milena) (25.0 - 39.5 Seconds) 51.2 H Hematology WBC (4.5 - 11.0 x10 3/uL) 12.1 H RBC (3.54 - 5.02 x10 6/uL) 2.85 L Hgb (11.0 - 15.0 g/dL) 9.1 L Hct (33.0 - 45.0 %) 29.0 L MCV (81.0 - 99.0 fL) 101.8 H MCH (27.0 - 33.0 pg) 31.9 MCHC (33.0 - 37.0 g/dL) 31.4 L RDW (11.5 - 14.5 %) 17.0 H Plt Count (150 - 400 x10 3/uL) 136 L MPV (7.0 - 9.0 fL) 9.5 H Neut % (Auto) (56.0 - 77.0 %) 83.6 H Lymph % (Auto) (14.0 - 32.0 %) 5.3 L Kerr % (Auto) (4.8 - 9.0 %) 8.4 Eos % (Auto) (0.3 - 3.7 %) 2.1 Baso % (Auto) (0.0 - 2.0 %) 0.2 Neut # (Auto) (2.0 - 7.6 x10 3/uL) 10.10 H Lymph # (Auto) (1.0 - 3.8 x10 3/uL) 0.64 L Kerr # (Auto) (0.1 - 0.8 x10 3/uL) 1.02 H Eos # (Auto) (0.0 - 0.2 x10 3/uL) 0.25 H Baso # (Auto) (0.0 - 0.2 x10 3/uL) 0.02 Abs Immat Gran (auto) (0.00 - 0.03 0.05 H x10 3/uL) Add Manual Diff NO Immature Gran % (0.0 - 2.0 %) 0.4 Nucleated RBC % (0 - 0 %) 0.0 Nucleated RBCs # (Man) (0.0 - 0.1 0.00 x10 3/uL) Microbiology: Date/Time Procedure - Status Source Growth 06/23 1614 Urine Culture - RECD URINE Recent Impressions: CAT SCAN - CT CHEST W/O CONTRAST 06/22 0953 Report Impression - Status: SIGNED Entered: 06/23/2022 0904 IMPRESSION: 1. There is a new small left pleural effusion. T he small right pleural effusion is unchanged. 2. There are patchy ground-glass opacities throu ghout the lungs, not significantly changed compared to prior stud y. This is a nonspecific finding and may represent pulmonary edema versus an infectious or inflammatory process. 3. There is diffuse body wall edema. 4. There is a small pericardial effusion, slight ly increased in size compared to prior study. 5. There is a small amount of ascites in the vis ualized abdomen. Impression By: Tiffany Goldstein ULTRASOUND - DOP ART SGL LEVEL JARRETT 06/22 1509 Report Impression - Status: SIGNED Entered: 06/22/2022 1655 IMPRESSION: 1. The ankle brachial indices cannot be calculat ed. 2. Severe peripheral arterial disease in the rig ht lower extremity with occlusion versus significant stenosis of th e right posterior tibialis artery. 3. Severe peripheral arterial disease in the lef t lower extremity with monophasic waveforms in the tibial arteries . Impression By: Tiffany Goldstein ULTRASOUND - DUP EXTRACRANIAL JARRETT 06/22 1509 Report Impression - Status: SIGNED Entered: 06/22/2022 1808 IMPRESSION: No carotid arterial stenosis. REFERENCES: SRU CRITERIA. The degree of internal carotid art eboni stenosis is based on criteria defined by the Society of Radi ologists in Ultrasound (SRU). Normal is no stenosis. Mild is less than 50% stenosis. Moderate is 50-69% stenosis. Severe is greater than 69% stenosis to near occlusion. Near occlusion is a markedly narrowed lumen. Total occlusion is no detectable patent l umen. Impression By: Steffanie Logan ULTRASOUND - DUP VEIN JARRETT 06/22 1510 Report Impression - Status: SIGNED Entered: 06/22/2022 1730 IMPRESSION: Greater saphenous vein is patent. Vein mapping a s described. Impression By: Baldemar Obando M.D. Current Medications Sig/Enedina Start time Last Medication Dose Route Stop Time Status Admin Epoetin Vanesa-epbx 6,000 UNIT TuTa@06/24 2 100 AC SUBQ 07/24 2058 Clopidogrel 75 MG DAILY 06/23 1800 AC Bisulfate PO 07/23 1759 Ceftriaxone Sodium 1,000 MG Q24H 06/23 1330 AC Sodium Chloride 10 ML IV 06/30 1329 Calcitriol 0.5 MCG DAILY 06/23 0900 AC 06/23 PO 07/23 0859 0830 Midodrine 5 MG 0900,1300,1700 06/23 0900 AC 06/08 6 PO 07/23 0859 1238 Levothyroxine Sodium 150 MCG DAILY 0600 06/23 06 00 AC 06/23 PO 07/23 0559 0521 Buspirone HCl 5 MG BID 06/22 2100 AC 06/23 PO 07/22 2058 0834 Epoetin Vanesa-epbx 4,000 UNIT TuTa@06/22 2 100 AC 06/22 SUBQ 06/24 205 2202 Metoprolol Tartrate 12.5 MG Q12HR 06/22 2100 AC 06/23 PO 07/22 205 0829 Pantoprazole 40 MG 0600,1800 06/22 1800 AC 06/08 6 PO 07/22 1759 0521 Midodrine 10 MG DIALYSIS-DOSE 06/22 1545 CKD BEFORE PO 07/22 1544 1314 Albumin Human 12.5 GM ASDIR PRN 06/22 1530 AC 1 08/23 IV 07/23 1529 1548 Heparin Sodium 3,000 UNIT ASDIR PRN 06/22 1530 A C 06/23 (Porcine) DIALYSIS 07/22 1529 1414 Lidocaine HCl 0.5 ML ASDIR PRN 06/22 1530 CKD I-DERMAL 07/23 1529 Mannitol 12.5 GM ASDIR PRN 06/22 1530 AC IV 07/23 1529 Sodium Chloride 2,000 ML ASDIR PRN 06/22 1530 A C 06/23 IV 07/23 1529 1413 Sodium Chloride 5 ML ASDIR PRN 06/22 1530 AC IV 07/22 1529 Sodium Chloride 10 ML ASDIR PRN 06/22 1530 AC IV 07/22 1529 1416 Sodium Chloride 250 ML ASDIR PRN 06/22 1530 AC IV 07/22 1529 Aspirin 81 MG C BK 06/22 0800 AC 06/23 PO 07/22 0759 0829 Atorvastatin Calcium 40 MG 2100 06/21 2100 AC 1 08/23 PO 07/21 205 2201 Insulin Human Lispro 0 AC HS 06/21 2100 AC 06/08 6 SUBQ 07/21 205 0829 Dextrose/Water 125 ML ASDIR PRN 06/21 1900 CKD IV 07/21 1859 Dextrose/Water 250 ML ASDIR PRN 06/21 1900 CKD IV 07/21 1859 Glucagon 1 MG ASDIR PRN 06/21 1900 AC IM 07/21 1859 Melatonin 3 MG BEDTIME PRN PRN 06/21 1900 AC PO 07/21 1859 2045 Morphine Sulfate 2 MG Q4H PRN PRN 06/21 1900 AC 06/22 IV 06/26 1859 0104 Tramadol HCl 50 MG Q6H PRN PRN 06/21 1900 AC PO 06/26 1859 1313 Acetaminophen 650 MG Q4H PRN PRN 06/21 1730 AC 1 08/24 PO 07/21 1729 0828 Heparin Sodium 5,000 UNIT ASDIR PRN 06/21 1730 A C 06/22 IV 07/21 1729 1449 Heparin Sodium 500 ML ASDIR 06/21 1730 DC 06/23 (Porcine) IV 07/21 1729 0521 Magnesium Hydroxide 30 ML BEDTIME PRN PRN 06/21 1730 AC 06/23 PO 07/21 1729 0842 Nitroglycerin 0.4 MG Q5M PRN PRN 06/21 1730 AC SL 07/21 1729 Ondansetron HCl 4 MG Q6H PRN PRN 06/21 1730 AC IV 07/21 1729 Diagnosis, Assessment Plan Free Text A P: Multiple ulcers, B feet, B h ands , sp fall - Bactroban BID to all ulcers, leave open to air. Wound cx, L great toe ulcer. Severe PVD- angio pending. DM CKD on HD [ x] Optimize Nutrition and Glycemic Control [ x] Pressure relieving inte rventions (Low Air Mattress, Prevalon boot, Turn q2h ) [ x] Nursing to implement impaired skin integrit y care plan as per skin care protocol Coordinattion of care D/W [ ] Other MD's [ x ] P atient [ ] Family [x ] Nursing [ ] Case Management Electronically Signed by Sybil Byers MD on at 2236 RPT #:[id number] END OF REPORT 2022-06-23 15:29:00-00:00 [facility] ([facility]) Cardiology Progress Note REPORT#:[id number] REPORT STATUS: Signed DATE:06/23/22 TIME: 1529 PATIENT: MESERET MOTTA UNIT #: [id number] ROOM/BED: [place] [id number] : 56 AGE: 67 SEX: F ATTEND: Nidhi Ashton MD ADM AUTHOR: Kristina Shah AGA [employer]ORER * ALL edits or amendments must be made on the [employer] document * See Addendum Kristina Shah 06/23/22 1529: Subjective Chief complaint: foot ulcers and discoloration Objective General VS/I O: 24 hour I O ending at 0700: 06/23 0700 06/22 1900 Intake Total 300 Output Total 3050 200 Balance -3050 100 Intake, Oral 300 Output, 3050 Hemodialysis Output, Urine 200 Vital Signs: Date Time Temp Pulse Resp B/P B/P Pulse O2 O2 F low FiO2 Mean Ox Delivery Rate 06/23 1340 36.6 65 19 104/61 97 Nasal 3 cannula 06/23 1204 36.6 69 17 102/60 74.4 98 Nasal cannula 06/23 0849 Nasal 4 cannula 06/23 0752 36.4 71 15 108/68 81.3 96 Nasal cannula 06/23 0410 36.6 76 17 115/72 86.7 96 Room air 06/22 2336 36.8 76 16 94/58 70.1 94 Room air 06/22 2200 Nasal 4 cannula 06/22 2151 36.7 83 17 115/72 86.2 98 Nasal cannula PATIENT WEIGHT: Weight (lb): 245 Weight (oz): 9.52 Weight (kg): 111.13 Medications: Active Meds + DC'd Last 24 Hrs Epoetin Vanesa-epbx (RETACRIT) 6,000 UNIT TuThSa@2 100 SUBQ Ceftriaxone Sodium (ROCEPHIN 1000MG VIAL) 1,000 MG Q24H IV Sodium Chloride (SODIUM CHLORIDE) 10 ML Calcitriol (RocaltroL) 0.5 MCG DAILY PO Midodrine (PROAMATINE) 5 MG 0900,1300,1700 PO Levothyroxine Sodium (LEVOTHYROXINE SODIUM) 150 MCG DAILY 0600 PO Buspirone HCl (BUSPAR) 5 MG BID PO Epoetin Vanesa-epbx (RETACRIT) 4,000 UNIT TuThSa@2 100 SUBQ Metoprolol Tartrate (LOPRESSOR) 12.5 MG Q12HR PO Pantoprazole (PROTONIX) 40 MG 0600,1800 PO Perflutren Protein Type A Microsphe (OPTISON 3ML VIAL) 0 .STK-MED ONE IV (DC) Midodrine (PROAMATINE) 10 MG DIALYSIS-DOSE BEFOR E PO (CKD) Albumin Human (ALBUMINAR-25%) 12.5 GM ASDIR PRN IV Heparin Sodium (Porcine) (HEPARIN SODIUM) 3,000 UNIT ASDIR PRN DIALYSIS Lidocaine HCl (LIDOCAINE HCL/PF) 0.5 ML ASDIR DC N I-DERMAL (CKD) Mannitol (MANNITOL 25% 12.5GM/50ML) 12.5 GM ASDI R PRN IV Sodium Chloride (SODIUM CHLORIDE 0.9%) 2,000 ML ASDIR PRN IV Sodium Chloride (SODIUM CHLORIDE) 5 ML ASDIR PRN IV Sodium Chloride (SODIUM CHLORIDE) 10 ML ASDIR DC N IV Sodium Chloride (SODIUM CHLORIDE 0.9%) 250 ML DIR PRN IV Aspirin (ASPIRIN) 81 MG C BK PO Atorvastatin Calcium (LIPITOR) 40 MG 2100 PO Insulin Human Lispro (HUMALOG) 0 AC HS SUBQ Dextrose/Water (DEXTROSE 10% IN WATER) 125 ML DIR PRN IV (CKD) Dextrose/Water (DEXTROSE 10% IN WATER) 250 ML DIR PRN IV (CKD) Glucagon (GLUCAGON) 1 MG ASDIR PRN IM Melatonin (Melatonin) 3 MG BEDTIME PRN PRN PO Morphine Sulfate (morphine SULFATE) 2 MG Q4H PRN PRN IV Tramadol HCl (ULTRAM) 50 MG Q6H PRN PRN PO Acetaminophen (TYLENOL) 650 MG Q4H PRN PRN PO Heparin Sodium (HEPARIN 5000 UNITS/ML) 5,000 UNI T ASDIR PRN IV Heparin Sodium (Porcine) (HEPARIN 25,000 UNITS/ 1/2NS 500ML) 500 ML ASDIR IV (CKD) Magnesium Hydroxide (MILK OF MAGNESIA) 30 ML BED TIME PRN PRN PO Nitroglycerin (NITROSTAT) 0.4 MG Q5M PRN PRN SL Ondansetron HCl (ZOFRAN) 4 MG Q6H PRN PRN IV Physical Exam General appearance: alert, awake Neck: non-tender, no JVD Cardiovascular: CV assessment: regular rate and rhythm Respiratory: decreased breath sounds, on oxygen, no distress Abdomen: non-tender, obese Genitourinary: no flank pain, no urinary cathete r Lower extremity: LE assessment: abnormal capillary refill, abnor mal pedal pulse, no edema Musculoskeletal: normal inspection Neuro/SURGICAL SPECIALIST: alert, oriented X 3, normal speech Skin: scabs lower extremities Ulcer: Type/cause: diabetic, arterial Location: foot (bilateral toes) Psychiatry: normal affect, normal mood Results Findings/Data: Laboratory Tests 06/23 06/23 06/22 06/22 1201 0408 2149 1832 Chemistry POC Glucose (70 - 110 MG/DL) 147 H 246 H 186 H 125 H Laboratory Tests 06/23 06/23 06/22 1123 0409 2050 Coagulation PTT (Graves) (25.0 - 39.5 Seconds) 72.0 H 53.5 H 51.2 H Laboratory Tests 06/23 0400 Hematology WBC (4.5 - 11.0 x10 3/uL) 12.1 H RBC (3.54 - 5.02 x10 6/uL) 2.85 L Hgb (11.0 - 15.0 g/dL) 9.1 L Hct (33.0 - 45.0 %) 29.0 L MCV (81.0 - 99.0 fL) 101.8 H MCH (27.0 - 33.0 pg) 31.9 MCHC (33.0 - 37.0 g/dL) 31.4 L RDW (11.5 - 14.5 %) 17.0 H Plt Count (150 - 400 x10 3/uL) 136 L MPV (7.0 - 9.0 fL) 9.5 H Neut % (Auto) (56.0 - 77.0 %) 83.6 H Lymph % (Auto) (14.0 - 32.0 %) 5.3 L Kerr % (Auto) (4.8 - 9.0 %) 8.4 Eos % (Auto) (0.3 - 3.7 %) 2.1 Baso % (Auto) (0.0 - 2.0 %) 0.2 Neut # (Auto) (2.0 - 7.6 x10 3/uL) 10.10 H Lymph # (Auto) (1.0 - 3.8 x10 3/uL) 0.64 L Kerr # (Auto) (0.1 - 0.8 x10 3/uL) 1.02 H Eos # (Auto) (0.0 - 0.2 x10 3/uL) 0.25 H Baso # (Auto) (0.0 - 0.2 x10 3/uL) 0.02 Abs Immat Gran (auto) (0.00 - 0.03 x10 3/uL) 0. 05 H Add Manual Diff NO Immature Gran % (0.0 - 2.0 %) 0.4 Nucleated RBC % (0 - 0 %) 0.0 Nucleated RBCs # (Man) (0.0 - 0.1 x10 3/uL) 0.0 0 Results: labs reviewed, vital signs reviewed Telemetry Interpretation: sinus rhythm Diagnosis, Assessment Plan Plan discussed with: patient, son, nurse Free Text DxA P Notes Free Text DxA P Notes: 67 YO female with PMHx of HTN, DM, CHF, ESRD on HD who initially presented at [facility] with SOB and fatigue. Sh regan was treated for NSTEMI and acute CHF exacerbation. 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 She is transferred her for CABG evaluation. Echo showed LVEF 50%. Cardiolology is consulted for continuity of cardiac-related care . 1. NSTEMI/Multivessel CAD continue Heparin gtt, ASA, statin, low dose meto prolol telemetry monitoring STS risk score 17%, too high risk for CABG. Will discuss with Dr. Lantigua for possible PCI next week, will also do peripheral angiogram around that time 2. Acute on chronic Diastolic CHF volume management per nephrology echo from OSH LVEF 50% 3. ESRD on HD per nephrology 4. Diabetes mellitus per admitting team 5. Hypertension BP soft continue low-dose beta-susan for CAD 6. Toe ulcers/severe PAD LE arterial doppler - severe PAD will plan for peripheral angio next week Herson Tang 06/23/227: Attestations Physician Attestation Agree w/findings plan: I Agree with the findings and plan as documented by Kristina Shah. Discussed case int he complex coronary conferenc e. Plan for PCI to LCX and staged PCI to LAD. She also has PAD. plan for Pe ripheral Angio on Sunday. at 1537 Electronically Signed by Herson Tang MD on at 1919 Addendum 1: 06/23/22 1705 by Kristina Shah DC Heparin, start Plavix 75 mg daily, first dose today. at 1705 RPT #:[id number] END OF REPORT 2022-06-23 12:59:00-00:00 [facility] Hospitalist Progress Note REPORT#:[id number] REPORT STATUS: Signed DATE:06/23/22 TIME: 1259 PATIENT: MESERET MOTTA UNIT #: [id number] ROOM/BED: [place] [address] : 56 AGE: 67 SEX: F ATTEND: Nidhi Ashton MD ADM AUTHOR: Steffen Olvera MD * ALL edits or amendments must be made on the el [employer]/computer document * Subjective Free Text Subj Notes Free Text Subj Notes: Pt reports some bloody discharge on urination. Objective General VS/I O: Vital Signs: Date Time Temp Pulse Resp B/P B/P Pulse O2 O2 F low FiO2 Mean Ox Delivery Rate 06/23 1204 36.6 69 17 102/60 74.4 98 Nasal cannula 06/23 0849 Nasal 4 cannula 06/23 0752 36.4 71 15 108/68 81.3 96 Nasal cannula 06/23 0410 36.6 76 17 115/72 86.7 96 Room air 06/22 2336 36.8 76 16 94/58 70.1 94 Room air 06/22 2200 Nasal 4 cannula 06/22 2151 36.7 83 17 115/72 86.2 98 Nasal cannula 06/22 1519 36.5 77 27 91/60 97 Nasal 3 cannula 06/22 1519 36.5 77 27 91/66 97 Nasal 3 cannula 24 hour I O ending at 0700: 06/23 0700 06/22 1900 Intake Total 300 Output Total 3050 200 Balance -3050 100 Intake, Oral 300 Output, 3050 Hemodialysis Output, Urine 200 PATIENT WEIGHT: Weight (lb): 245 Weight (oz): 9.52 Weight (kg): 111.400 Physical Exam ENT: moist mucosal membranes Cardiovascular: normal heart sounds, regular rat e rhythm, no murmur Respiratory: aerating well, clear to auscultatio n, symmetric expansion Abdomen: non-tender, normal bowel sounds, soft, no distention Extremities: edema, moves all Neuro/SURGICAL SPECIALIST: alert, oriented X 3, normal speech, n o motor deficits Results Findings/Data: Laboratory Tests 06/23 06/23 06/22 06/22 1201 0408 2149 1832 Chemistry POC Glucose (70 - 110 MG/DL) 147 H 246 H 186 H 125 H Laboratory Tests 06/23 06/23 06/22 1123 0409 2050 Coagulation PTT (Graves) (25.0 - 39.5 Seconds) 72.0 H 53.5 H 51.2 H Laboratory Tests 06/23 0400 Hematology WBC (4.5 - 11.0 x10 3/uL) 12.1 H RBC (3.54 - 5.02 x10 6/uL) 2.85 L Hgb (11.0 - 15.0 g/dL) 9.1 L Hct (33.0 - 45.0 %) 29.0 L MCV (81.0 - 99.0 fL) 101.8 H MCH (27.0 - 33.0 pg) 31.9 MCHC (33.0 - 37.0 g/dL) 31.4 L RDW (11.5 - 14.5 %) 17.0 H Plt Count (150 - 400 x10 3/uL) 136 L MPV (7.0 - 9.0 fL) 9.5 H Neut % (Auto) (56.0 - 77.0 %) 83.6 H Lymph % (Auto) (14.0 - 32.0 %) 5.3 L Kerr % (Auto) (4.8 - 9.0 %) 8.4 Eos % (Auto) (0.3 - 3.7 %) 2.1 Baso % (Auto) (0.0 - 2.0 %) 0.2 Neut # (Auto) (2.0 - 7.6 x10 3/uL) 10.10 H Lymph # (Auto) (1.0 - 3.8 x10 3/uL) 0.64 L Kerr # (Auto) (0.1 - 0.8 x10 3/uL) 1.02 H Eos # (Auto) (0.0 - 0.2 x10 3/uL) 0.25 H Baso # (Auto) (0.0 - 0.2 x10 3/uL) 0.02 Abs Immat Gran (auto) (0.00 - 0.03 x10 3/uL) 0. 05 H Add Manual Diff NO Immature Gran % (0.0 - 2.0 %) 0.4 Nucleated RBC % (0 - 0 %) 0.0 Nucleated RBCs # (Man) (0.0 - 0.1 x10 3/uL) 0.0 0 Radiology data: Recent Impressions: ULTRASOUND - DOP ART SGL LEVEL JARRETT 06/22 1509 Report Impression - Status: SIGNED Entered: 06/22/2022 1655 IMPRESSION: 1. The ankle brachial indices cannot be calculat ed. 2. Severe peripheral arterial disease in the rig ht lower extremity with occlusion versus significant stenosis of th e right posterior tibialis artery. 3. Severe peripheral arterial disease in the lef t lower extremity with monophasic waveforms in the tibial arteries . Impression By: [email or web address] - Tiffany Spears ULTRASOUND - DUP EXTRACRANIAL JARRETT 06/22 1507 Report Impression - Status: SIGNED Entered: 06/22/2022 1808 IMPRESSION: No carotid arterial stenosis. REFERENCES: SRU CRITERIA. The degree of internal carotid art eboni stenosis is based on criteria defined by the Society of Radi ologists in Ultrasound (SRU). Normal is no stenosis. Mild is less than 50% stenosis. Moderate is 50-69% stenosis. Severe is greater than 69% stenosis to near occlusion. Near occlusion is a markedly narrowed lumen. Total occlusion is no detectable patent l umen. Impression By: Steffanie Logan ULTRASOUND - DUP VEIN JARRETT 06/22 1510 Report Impression - Status: SIGNED Entered: 06/22/2022 1730 IMPRESSION: Greater saphenous vein is patent. Vein mapping a s described. Impression By: [email or web address] - Glenn Obando M.D. Diagnosis, Assessment Plan Free Text DxA P Notes Free text DxA P notes: Three-vessel coronary artery disease CV surgery following. Pending decision for surg eboni Continue heparin drip Continue on aspirin and atorvastatin cardiology following Acute respiratory failure with hypoxemia Patient presented with supplemental nasal cannu la oxygen -Secondary to pulmonary edema -Pulm consulted Elevated LFTs Secondary to hepatic congestion Monitor LFTs Presumed UTI -Start Rocephin -UA ordered. 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 Supervisor following Type 2 diabetes mellitus on insulin sliding scale Diabetic diet Hypothyroidism Resume Synthroid Anemia of chronic disease -Transfuse for Hb <7 -No bleeding Discussed with pt and son at bedside Electronically Signed by Steffen Olvera MD 06/23/22 at 1307 RPT #:[id number] END OF REPORT 2022-06-23 11:26:00-00:00 [facility] ([facility]) Cardiothoracic Surgery Prog REPORT#:[id number] REPORT STATUS: Signed DATE:06/23/22 TIME: 112 PATIENT: MESERET MOTTA UNIT #: [id number] ROOM/BED: 4404-1 : 56 AGE: 67 SEX: F ATTEND: Adonis Gaytan MD ADM AUTHOR: Aleja Funk * ALL edits or amendments must be made on the [employer]/computer document * Subjective Chief complaint: Shortness of Breath, CAD, Dyspnea with exertion, CAD Review of Systems Constitutional: Denies: fatigue, generalized weakness. Skin: Denies: bruising, contusion. Allergy/Immun: Denies: itching, rhinorrhea. Eyes: Denies: itching, diplopia. Respiratory: Reports: STEELE (dyspnea on exertion), SOB. Cardiovascular: Reports: STEELE (dyspnea on exertion). Denies: ches t pain, palpitations. GI: Denies: constipation, diarrhea. : Denies: dysuria, hematuria. Heme: Denies: bleeding, bruising. Endocrine: Denies: polyuria. Neuro: Denies: bladder dysfunction, confusion, dizzines s. All systems rev neg: except as marked Objective General VS/I O Last Documented: Result Date Time O2 Delivery Nasal cannula 06/23 0849 O2 Flow Rate 4 06/23 0849 Pulse Ox 96 06/23 075 B/P 108/68 06/23 0752 B/P Mean 81.3 06/23 752 Temp 97.5 06/23 0752 Pulse 71 06/23 0752 Resp 15 06/23 0752 24 hour I O ending at 0700: 06/23 0700 06/22 1900 Intake Total 300 Output Total 3050 200 Balance -3050 100 Intake, Oral 300 Output, 3050 Hemodialysis Output, Urine 200 PATIENT WEIGHT: Weight (lb): 245 Weight (oz): 9.52 Weight (kg): 111.400 Physical Exam General appearance: alert, awake HEENT: mucosal membranes moist Neck: full range of motion, non-tender Cardiovascular: normal heart sounds, regular rat e rhythm Respiratory: shortness of breath, wheezing, melchor r to auscultation Abdomen: soft, non-tender Genitourinary: no bladder distention, no lemons Extremities: dry, moves all Neuro/SURGICAL SPECIALIST: alert, oriented X 3 Skin: dry, intact Results Findings/Data: Laboratory Tests 06/23 06/22 06/22 06/22 06/22 0408 2149 1832 1134 1134 Chemistry POC Glucose (70 - 110 MG/DL) 246 H 186 H 125 H B-Natriuretic Peptide (0 - 100 PG/ML) 557.0 H PTH Intact (14.0 - 72.0 pg/mL) 661.2 H 06/22 1134 Chemistry Sodium (134 - 147 mEq/L) 132 L Potassium (3.4 - 5.0 mEq/L) 4.6 Chloride (100 - 108 mEq/L) 91 L Carbon Dioxide (21 - 33 mEq/l) 20 L Anion Gap (0 - 20) 26 H BUN (7 - 18 mg/dL) 67 H Creatinine (0.6 - 1.3 mg/dL) 7.0 H Glomerular Filtr Rate (80 - 90) 6.0 L Glucose (70 - 110 mg/dL) 270 H Calcium (8.0 - 10.5 mg/dL) 9.4 Laboratory Tests 06/23 06/22 06/22 06/22 0409 2050 1134 1134 Coagulation INR (0.8 - 1.2) 1.3 H PTT (Milena) (25.0 - 39.5 Seconds) 53.5 H 51.2 H 40.0 H PT Patient/Control Mix (9.3 - 12.9 SECONDS) 14. 9 H Laboratory Tests 06/23 06/22 0400 1134 Hematology WBC (4.5 - 11.0 x10 3/uL) 12.1 H 13.3 H RBC (3.54 - 5.02 x10 6/uL) 2.85 L 2.99 L Hgb (11.0 - 15.0 g/dL) 9.1 L 9.5 L Hct (33.0 - 45.0 %) 29.0 L 30.0 L MCV (81.0 - 99.0 fL) 101.8 H 100.3 H MCH (27.0 - 33.0 pg) 31.9 31.8 MCHC (33.0 - 37.0 g/dL) 31.4 L 31.7 L RDW (11.5 - 14.5 %) 17.0 H 16.8 H Plt Count (150 - 400 x10 3/uL) 136 L 159 MPV (7.0 - 9.0 fL) 9.5 H 9.7 H Neut % (Auto) (56.0 - 77.0 %) 83.6 H 86.4 H Lymph % (Auto) (14.0 - 32.0 %) 5.3 L 4.4 L Kerr % (Auto) (4.8 - 9.0 %) 8.4 6.8 Eos % (Auto) (0.3 - 3.7 %) 2.1 1.7 Baso % (Auto) (0.0 - 2.0 %) 0.2 0.2 Neut # (Auto) (2.0 - 7.6 x10 3/uL) 10.10 H 11.5 0 H Lymph # (Auto) (1.0 - 3.8 x10 3/uL) 0.64 L 0.58 L Kerr # (Auto) (0.1 - 0.8 x10 3/uL) 1.02 H 0.90 H Eos # (Auto) (0.0 - 0.2 x10 3/uL) 0.25 H 0.22 H Baso # (Auto) (0.0 - 0.2 x10 3/uL) 0.02 0.02 Abs Immat Gran (auto) (0.00 - 0.03 x10 3/uL) 0. 05 H 0.07 H Add Manual Diff NO NO Immature Gran % (0.0 - 2.0 %) 0.4 0.5 Nucleated RBC % (0 - 0 %) 0.0 0.0 Nucleated RBCs # (Man) (0.0 - 0.1 x10 3/uL) 0. 00 0.00 Laboratory Tests 06/22 1134 Serology Hepatitis A IgM Ab (NON REACT. INDEX) NON REACT HERMES Hep Bs Antigen (NonReactive INDEX) NON REACTIVE Hep B Core IgM Ab (NON REACT. INDEX) NON REACTI VE Hepatitis C Antibody (NON REACT. INDEX) NON MARY CTIVE Radiology data: Recent Impressions: ULTRASOUND - DOP ART SGL LEVEL JARRETT 06/22 1509 Report Impression - Status: SIGNED Entered: 06/22/2022 1655 IMPRESSION: 1. The ankle brachial indices cannot be calculat ed. 2. Severe peripheral arterial disease in the rig ht lower extremity with occlusion versus significant stenosis of th e right posterior tibialis artery. 3. Severe peripheral arterial disease in the lef t lower extremity with monophasic waveforms in the tibial arteries . Impression By: [email or web address] - Tiffany Spears ULTRASOUND - DUP EXTRACRANIAL JARRETT 06/22 1509 Report Impression - Status: SIGNED Entered: 06/22/2022 1808 IMPRESSION: No carotid arterial stenosis. REFERENCES: SRU CRITERIA. The degree of internal carotid art eboni stenosis is based on criteria defined by the Society of Radi ologists in Ultrasound (SRU). Normal is no stenosis. Mild is less than 50% stenosis. Moderate is 50-69% stenosis. Severe is greater than 69% stenosis to near occlusion. Near occlusion is a markedly narrowed lumen. Total occlusion is no detectable patent l umen. Impression By: [email or web address] - Steffanie Baptiste ULTRASOUND - DUP VEIN AJRRETT 06/22 1510 Report Impression - Status: SIGNED Entered: 06/22/2022 1730 IMPRESSION: Greater saphenous vein is patent. Vein mapping a s described. Impression By: [email or web address] - Glenn Obando M.D. CT chest IMPRESSION: 1. There is a new small left pleural effusion. The small right pleural effusion is unchanged. 2. There are patchy ground-glass opacities thro ughout the lungs, not significantly changed compared to prior artemio dy. This is a nonspecific finding and may represent pulmonary edema versus an infectious or inflammatory process. 3. There is diffuse body wall edema. 4. There is a small pericardial effusion, sligh tly increased in size compared to prior study. 5. There is a small amount of ascites in the vi sualized abdomen. Diagnosis, Assessment Plan Hospital course to date: Free Text A P: 67 year old with PMH of insu david dependant Diabetes x 10 years, on dialysis 2 1/2 years, with multiple failed fistulas (3) and mul tiple dialysis catheters placements on both right (7) and left (10) subcl floresita, peripheral vascular disease, hypothyroidism, neuropathy, kid tammy stones, presents for evaluation of coronary artery disease. She reports symptoms of shortness of breath with exertion and at rest that has been worsening ove r the past 1 year. She states over the past several months she has been unable to lay flat without dyspnea. She admits to bilateral lower extremity swelling . She completes dialysis on and Saturdays. She has attempted PD dialysis, however could not complete due to her neuropathy in her hands. She has a hx of PVD, with bilateral leg wounds i n her feet which have been present for the past 6+ months. She denies any previous inte rventions on her legs for her peripheral vascular disease. She presented to [facility] in [place] with complaints of dyspnea on exe rtion and rest. Review of her records from previous hospital admission show elevated troponin with a peak of 5600. She underwent left heart catheterization which s howed multivessel coronary artery disease and subsequen tly transferred to [facility] for evaluation for coronary artery bypass surgery. She reports she quit smoking about 35 years ago. Also reports a history of multiple pneumonias over the past several years. She also has a history of kidney stones, last in 2017. Reports a family history of peripheral vascular disease, atrial fibrillation Assessment/plan 1) ESRD on dialysis- Renal consulted. 2) CAD Elevated troponin- peak 5600 Awaiting CD of heart catherization repeat echo. 3) Hypertension Continue home meds. 4) Diabetes - managed by primary 5) PVD Will obtain arterial doppler Carotid doppler ordered 6) Dyspnea/cough CT chest ordered 06/22/22 Patient resting comfortable. Denies chest pain. C/O Cough, Dyspnea Awaiting Cardiac workup. Nephrology consulted for dialysis. Consult PT/OT Obtain PFT Further recommendations to follow. 06/23/22 Resting comfortable. Denies Chest pains. C/O Cough. CT chest with small left effusion, patchy infilt rates: Edema vs Infectious process. Carotids - no significant dz, Peripheral doppler with significant PVD- non hea ling sores bilateral feet. STS score calculated 17% Case presented at complex ca se conference, recommend attempt PCI- Discussed with Car Designer. Patient seen by Dr Ashton. Electronically Signed by Aleja Funk on 1 08/24/21 at 1134 at 0961 RPT #:[id number] END OF REPORT 2022-06-23 06:22:00-00:00 [facility] ([facility]) Nephrology Progress Note REPORT#:[id number] REPORT STATUS: Signed DATE:06/23/22 TIME: 621 PATIENT: MESERET MOTTA UNIT #: [id number] ROOM/BED: [place] [address] : 56 AGE: 67 SEX: F ATTEND: Nidhi Ashton MD ADM AUTHOR: Jennifer Shelton MD * ALL edits or amendments must be made on the el [employer]/computer document * Subjective Chief complaint: Transferred for CABG HPI: Patient seen and evaluated, discussed with care team, 67-year-old female with history of end-stage renal d isease on chronic hemodialysis Sunday, and Sunday, diabetes mellitus, peripheral arterial disease and hypertension who was transferred to [facility] for CABG. Terrence quevedo initially presented to [facility] in [place] compl aining of shortness of breath. Underwent left heart cath which showed diffuse di sease and patient was transferred for evaluation for CABG. renal consult was requ ested for management of her end-stage renal disease/ hemodialysis. Patient reports: Yes: complaints. Comments: Patient seen and evaluated, HPI no change from i nitial, feels okay. Review of Systems Constitutional: Reports: fatigue. Denies: chills, fever. Skin: Reports: swelling. Allergy/Immun: Denies: hives, itching. Eyes: Denies: redness, discharge. ENT: Denies: ear drainage, ear ringing. Respiratory: Denies: hemoptysis. Cardiovascular: Denies: chest pain. Objective General VS/I O: Vital Signs: Date Time Temp Pulse Resp B/P B/P Pulse O2 O2 F low FiO2 Mean Ox Delivery Rate 06/23 0410 36.6 76 17 115/72 86.7 96 Room air 06/22 2336 36.8 76 16 94/58 70.1 94 Room air 06/22 2200 Nasal 4 cannula 06/22 2151 36.7 83 17 115/72 86.2 98 Nasal cannula 06/22 1519 36.5 77 27 91/60 97 Nasal 3 cannula 06/22 1519 36.5 77 27 91/66 97 Nasal 3 cannula 06/22 0923 36.4 76 18 102/67 78.7 97 Nasal cannula 06/22 0800 Nasal 3 cannula 24 hour I O ending at 0700: 06/23 0700 06/22 1900 Intake Total 300 Output Total 3050 200 Balance -3050 100 Intake, Oral 300 Output, 3050 Hemodialysis Output, Urine 200 PATIENT WEIGHT: Weight (lb): 249 Weight (oz): 1.96 Weight (kg): 113.000 Medications Active Meds + DC'd Last 24 Hrs Levothyroxine Sodium (LEVOTHYROXINE SODIUM) 150 MCG DAILY 0600 PO Buspirone HCl (BUSPAR) 5 MG BID PO Epoetin Vanesa-epbx (RETACRIT) 4,000 UNIT TuThSa@2 100 SUBQ Metoprolol Tartrate (LOPRESSOR) 12.5 MG Q12HR PO Pantoprazole (PROTONIX) 40 MG 0600,1800 PO Perflutren Protein Type A Microsphe (OPTISON 3ML VIAL) 0 .STK-MED ONE IV (DC) Midodrine (PROAMATINE) 10 MG DIALYSIS-DOSE BEFOR E PO (CKD) Albumin Human (ALBUMINAR-25%) 12.5 GM ASDIR PRN IV Heparin Sodium (Porcine) (HEPARIN SODIUM) 3,000 UNIT ASDIR PRN DIALYSIS Lidocaine HCl (LIDOCAINE HCL/PF) 0.5 ML ASDIR DC N I-DERMAL (CKD) Mannitol (MANNITOL 25% 12.5GM/50ML) 12.5 GM ASDI R PRN IV Sodium Chloride (SODIUM CHLORIDE 0.9%) 2,000 ML ASDIR PRN IV Sodium Chloride (SODIUM CHLORIDE) 5 ML ASDIR PRN IV Sodium Chloride (SODIUM CHLORIDE) 10 ML ASDIR DC N IV Sodium Chloride (SODIUM CHLORIDE 0.9%) 250 ML DIR PRN IV Albuterol Sulfate (ALBUTEROL SULFATE) 2.5 MG RTO NCE ONE NEB (DC) Aspirin (ASPIRIN) 81 MG C BK PO Atorvastatin Calcium (LIPITOR) 40 MG 2100 PO Insulin Human Lispro (HUMALOG) 0 AC HS SUBQ Dextrose/Water (DEXTROSE 10% IN WATER) 125 ML DIR PRN IV (CKD) Dextrose/Water (DEXTROSE 10% IN WATER) 250 ML DIR PRN IV (CKD) Glucagon (GLUCAGON) 1 MG ASDIR PRN IM Melatonin (Melatonin) 3 MG BEDTIME PRN PRN PO Morphine Sulfate (morphine SULFATE) 2 MG Q4H PRN PRN IV Tramadol HCl (ULTRAM) 50 MG Q6H PRN PRN PO Acetaminophen (TYLENOL) 650 MG Q4H PRN PRN PO Heparin Sodium (HEPARIN 5000 UNITS/ML) 5,000 UNI T ASDIR PRN IV Heparin Sodium (Porcine) (HEPARIN 25,000 UNITS/ 1/2NS 500ML) 500 ML ASDIR IV (CKD) Magnesium Hydroxide (MILK OF MAGNESIA) 30 ML BED TIME PRN PRN PO Nitroglycerin (NITROSTAT) 0.4 MG Q5M PRN PRN SL Ondansetron HCl (ZOFRAN) 4 MG Q6H PRN PRN IV Physical Exam General appearance: alert, no acute distress Head/eyes: atraumatic, normocephalic ENT: normal nose Neck: non-tender, supple/no meningismus Cardiovascular: normal heart sounds, no rub Respiratory: aerating well, symmetric expansion Abdomen: non-tender, soft Genitourinary: no flank pain Extremities: pitting edema, non-tender Musculoskeletal: no CVA tenderness, no tendernes s Neuro/SURGICAL SPECIALIST: alert, normal speech Skin: dry, intact Results Findings/Data: Laboratory Tests 06/23 2149 1832 1134 1134 Chemistry POC Glucose (70 - 110 MG/DL) 246 H 186 H 125 H B-Natriuretic Peptide (0 - 100 PG/ML) 557.0 H PTH Intact (14.0 - 72.0 pg/mL) 661.2 H 06/22 1134 Chemistry Sodium (134 - 147 mEq/L) 132 L Potassium (3.4 - 5.0 mEq/L) 4.6 Chloride (100 - 108 mEq/L) 91 L Carbon Dioxide (21 - 33 mEq/l) 20 L Anion Gap (0 - 20) 26 H BUN (7 - 18 mg/dL) 67 H Creatinine (0.6 - 1.3 mg/dL) 7.0 H Glomerular Filtr Rate (80 - 90) 6.0 L Glucose (70 - 110 mg/dL) 270 H Calcium (8.0 - 10.5 mg/dL) 9.4 Laboratory Tests 06/239 0 1134 1134 Coagulation INR (0.8 - 1.2) 1.3 H PTT (Milena) (25.0 - 39.5 Seconds) 53.5 H 51.2 H 40.0 H PT Patient/Control Mix (9.3 - 12.9 SECONDS) 14. 9 H Laboratory Tests 06/23 06/22 0400 1134 Hematology WBC (4.5 - 11.0 x10 3/uL) 12.1 H 13.3 H RBC (3.54 - 5.02 x10 6/uL) 2.85 L 2.99 L Hgb (11.0 - 15.0 g/dL) 9.1 L 9.5 L Hct (33.0 - 45.0 %) 29.0 L 30.0 L MCV (81.0 - 99.0 fL) 101.8 H 100.3 H MCH (27.0 - 33.0 pg) 31.9 31.8 MCHC (33.0 - 37.0 g/dL) 31.4 L 31.7 L RDW (11.5 - 14.5 %) 17.0 H 16.8 H Plt Count (150 - 400 x10 3/uL) 136 L 159 MPV (7.0 - 9.0 fL) 9.5 H 9.7 H Neut % (Auto) (56.0 - 77.0 %) 83.6 H 86.4 H Lymph % (Auto) (14.0 - 32.0 %) 5.3 L 4.4 L Kerr % (Auto) (4.8 - 9.0 %) 8.4 6.8 Eos % (Auto) (0.3 - 3.7 %) 2.1 1.7 Baso % (Auto) (0.0 - 2.0 %) 0.2 0.2 Neut # (Auto) (2.0 - 7.6 x10 3/uL) 10.10 H 11.5 0 H Lymph # (Auto) (1.0 - 3.8 x10 3/uL) 0.64 L 0.58 L Kerr # (Auto) (0.1 - 0.8 x10 3/uL) 1.02 H 0.90 H Eos # (Auto) (0.0 - 0.2 x10 3/uL) 0.25 H 0.22 H Baso # (Auto) (0.0 - 0.2 x10 3/uL) 0.02 0.02 Abs Immat Gran (auto) (0.00 - 0.03 x10 3/uL) 0. 05 H 0.07 H Add Manual Diff NO NO Immature Gran % (0.0 - 2.0 %) 0.4 0.5 Nucleated RBC % (0 - 0 %) 0.0 0.0 Nucleated RBCs # (Man) (0.0 - 0.1 x10 3/uL) 0. 00 0.00 Laboratory Tests 12/15 1134 Serology Hepatitis A IgM Ab (NON REACT. INDEX) NON REACT HERMES Hep Bs Antigen (NonReactive INDEX) NON REACTIVE Hep B Core IgM Ab (NON REACT. INDEX) NON REACTI VE Hepatitis C Antibody (NON REACT. INDEX) NON MARY CTIVE Diagnosis, Assessment Plan Free Text A P: Patient seen and evaluated, discussed with care team, images and laboratories reviewed. End-stage renal disease on c hronic hemodialysis, Sunday, and Sunday, plan for hemodialysis today Status post left heart cath with multi-vessel co ronary artery disease, respiratory evaluation for CABG. Hypertension: Monitor blood pressure closely and adjust medications as needed Hyperlipidemia: Lipitor Diabetes mellitus: Insulin: Monitor blood sugar closely adjust medications as needed Anemia: We will start Epogen 4000 subcu 3 times a week Elevated alkaline phosphatase we will check PTH. 06/23/2022 plan for filtration today if her bloo d pressure allows, had hemodialysis yesterday. See showed hemoglobin 9. 1, platelet 136, blood count 12.1. We will increase Epoge n to 6000 subcu 3 times a week, PTH 660 we will add Rocaltrol 0.5 mcg p.o. daily, will add midodrine 5 mg p.o. 3 times daily to allow for ultrafiltration. Electronically Signed by Jennifer Shelton MD on at 1008 RPT #:[id number] END OF REPORT 2022-06-22 19:12:00-00:00 [id number] [place] [address] PATIENT NAME: MESERET MOTTA ADMIT DATE: 06/22 ACCOUNT NO: [id number] ROOM NO: G.4421 AGE: 67 REPORT TYPE: eELECTROCARDIOGRAM REPORT SEX: F ADMITTING PHYSICIAN:Delmy Ashton MD ATTENDING PHYSICIAN:Delmy Ashton MD Order: [id number] Test Reason : hx of atrial fibrillation Test Date/Time Stamp: SunJun 22 2022 19:12:48 Blood Pressure : / mmHG Vent. Rate : 068 BPM Atrial Rate : 068 BPM P-R Int : 172 ms QRS Dur : 108 ms QT Int : 622 ms P-R-T Axes : 055 012 050 degree s QTc Int : 661 ms Normal sinus rhythm Low voltage QRS Nonspecific T wave abnormality Prolonged QT Abnormal ECG No previous ECGs available Confirmed by MD THIAGO, DEE ([id number]) on 022 9:21:06 PM Referred By: Jim Dhillon Confirmed by:DEE KELLER MD Electronically Signed by Dee Das MD on 1 08/27/21 at 2121 PATIENT NAME: MESERET MOTTA [id number] 5831-12-15 16:55:00-00:00 [id number] [place] [address] PATIENT NAME: MESERET MOTTA ADMIT DATE: 06/22 ACCOUNT NO: [id number] ROOM NO: G.4421 AGE: 67 REPORT TYPE: eECHOCARDIOGRAM REPORT SEX: F ADMITTING PHYSICIAN:Delmy Ashton MD ATTENDING PHYSICIAN:Delmy Ashton MD *[place] [address] Transthoracic Echocardiogram Patient: Meseret Motta Study Date: 06/22/2022 BP: 108 / 60 Location: [facility] URN: [id number] 00 : 1955 Age: 67 Height: 66 in / 167.6 cm Gender: F Weight: 24 8.5 lb / 112.9 kg BMI/BSA: 40.2 kg/m 2 / 2.2 m 2 *Ordering Physician: * Aleja Funk *Interpreting Physician: * Herson Tang MD *Turret Lathe Tender: * Karen Block Indications: POST STEMI, Dyspnea, pulmonary debra a. Study data: Transthoracic echocardiogram. Proced ure: Transthoracic echocardiography was performed. Image quality wa s adequate. Complete 2D, complete spectral Doppler, and color Doppler . Location: Echo laboratory. Patient status: Inpatient. Study sta tus: Routine. Rhythm: Normal sinus rhythm. Findings Left ventricle: The cavity size is normal. Wall thickness is mildly increased. Systolic function is normal. The ad mated ejection fraction is 60-64%. Wall motion is normal; there are no r egional wall motion abnormalities. Doppler parameters are consistent with abnormal left ventricular relaxation (grade 1 diastolic dysfun ction). PATIENT NAME: MESERET MOTTA [id number] Right ventricle: The cavity size is normal. Syst olic function is normal. Left atrium: The atrium is normal in size. Right atrium: The atrium is normal in size. Aorta: Aortic root: The aortic root is normal in size. Aortic valve: The valve is trileaflet. The leafl ets are mildly calcified. There is no evidence of stenosis. The re is no regurgitation. Mitral valve: The annulus is mildly calcified. T here is no evidence of stenosis. There is trivial regurgitation. Tricuspid valve: The valve is structurally kristopher l. There is trivial regurgitation. Pulmonic valve: The valve is structurally normal . There is mild regurgitation. Pericardium: A small to moderate pericardial eff usion is identified anterior to the heart. There is a small pericard ial effusion posterior to the heart. The fluid has a fibrinous appearan ce. There is a large right pleural effusion. Pulmonary arteries: The main pulmonary artery is normal-sized. Systemic veins: Inferior vena cava: The vessel is at the upper l imits of normal in size. Inferior vena cava diameter is 2 cm. Measurements Left ventricle Value Ref MACARENA, LAX 5.0 cm 3.8 - 5.2 ESD, LAX 4.6 cm 2.2 - 3.5 ESD/bsa, LAX 2.1 cm/m 2 1.3 - 2.1 FS, LAX 25 % 27 - 45 ESD/bsa major 2.7 cm/m 2 --------- ax, A4C MACARENA/bsa minor 2.7 cm/m 2 --------- ax, A4C MACARENA major ax, 7.0 cm --------- A2C ESD major ax, 5.9 cm --------- A2C MACARENA/bsa major 3.2 cm/m 2 --------- ax, A2C ESD/bsa major 2.7 cm/m 2 --------- ax, A2C PW, ED 0.8 cm 0.6 - 0.9 IVS/PW, ED 1.7 --------- EF 50 % 54 - 74 E', lat joss, 4.3 cm/sec >=10.0 TDI E/e', lat joss, 16 --------- TDI E', med joss, 5.0 cm/sec >=7.0 TDI E/e', med joss, 14 --------- PATIENT NAME: MESERET MOTTA [id number] TDI E', avg, TDI 4.6 cm/sec --------- E/e', avg, TDI 15 <=14 LVOT Value Ref Diam, S 1.98 cm --------- Area 3.1 cm 2 --------- Peak rigo, S 0.78 m/sec --------- Mean rigo, S 0.59 m/sec --------- VTI, S 17.4 cm --------- Peak grad, S 2 mm Hg --------- Mean grad, S 2 mm Hg --------- SV 54 ml --------- Qs 3.89 L/min --------- Qs/bsa 1.8 L/(min-m 2) --------- SV/bsa 25 ml/m 2 --------- Ventricular septum Value Ref IVS, ED 1.3 cm 0.6 - 0.9 Right ventricle Value Ref MACARENA, LAX 3.2 cm --------- RVOT Value Ref Peak v, S 0.76 m/sec --------- Peak grad, S 2 mm Hg --------- Left atrium Value Ref AP dim, ES 3.37 cm 2.70 - 3.80 Vol/bsa, ES, 17 ml/m 2 11 - 40 1-p A4C Vol, ES, 2-p 48 ml --------- Vol/bsa, ES, 22 ml/m 2 16 - 34 2-p Vol/bsa, ES, 19 ml/m 2 16 - 34 A/L AP dim, ES MM 3.0 cm 2.7 - 3.8 LA/Ao root 1.07 --------- ratio, MM Right atrium Value Ref Area, ES 12 cm 2 10 - 18 SI dim, ES, A4C 4.1 cm 3.4 - 5.3 SI dim/bsa, ES, 1.9 cm/m 2 1.9 - 3.1 A4C Vol, ES, A/L 29 ml --------- Vol, ES, 1-p 28 ml --------- A4C Vol/bsa, ES, 13 ml/m 2 9 - 33 1-p A4C Aortic valve Value Ref Leaflet sep, MM 1.71 cm --------- PATIENT NAME: MESERET MOTTA [id number] Peak v, S 1.57 m/sec --------- Mean v, S 1.14 m/sec --------- VTI, S 31.1 cm --------- Mean grad, S 5.6 mm Hg --------- Peak grad, S 9.8 mm Hg --------- LVOT/AV, VTI 0.56 --------- ratio JUANA, VTI 1.74 cm 2 --------- LVOT/AV, Vpeak 0.5 --------- ratio JUANA, Vmax 1.55 cm 2 --------- Mitral valve Value Ref Peak E 0.05 m/sec --------- Peak A 0.99 m/sec --------- Decel time 300 ms --------- PHT 81 ms --------- Peak E/A ratio 0.68 --------- MVA, PHT 2.7 cm 2 --------- Pulmonic valve Value Ref DC v, ED 0.72 m/sec --------- Aortic root Value Ref Root diam, ED 2.81 cm --------- MM Conclusions Summary: 1. Left ventricle: The cavity size is normal. Wa ll thickness is mildly increased. Systolic function is normal. The est imated ejection fraction is 60-64%. Wall motion is normal; ther e are no regional wall motion abnormalities. Doppler parameters are co nsistent with abnormal left ventricular relaxation (grade 1 diastolic dysfunction). 2. Mitral valve: The annulus is mildly calcified . 3. Tricuspid valve: There is trivial regurgitati on. 4. Pulmonic valve: There is mild regurgitation. 5. Pericardium, extracardiac: A small to moderat e pericardial effusion is identified anterior to the heart. There is a small pericardial effusion posterior to the heart. The fluid has a fibrinous appearance. There is a large right pleural effu chelo. Prepared and electronically signed by Herson Tang MD 06/22/2022 16:55 PATIENT NAME: MESERET MOTTA [id number] at 1655 PATIENT NAME: MESERET MOTTA [id number] 14:48:00-00:00 [id number] [place] [address] PATIENT NAME: MESERET MOTTA ADMIT DATE: 06/08 11/27 ACCOUNT NO: [id number] ROOM NO: G.4421 AGE: 67 REPORT TYPE: 360 - QUERY RESPONSE DOCUMENT SEX: F ADMITTING PHYSICIAN:Delmy Ashton MD ATTENDING PHYSICIAN:Delmy Ashton MD Provider Query QUERY TEXT: Condition General 360MD Query related questions should be directed to: [email or web address] Based on your clinical judgement can you specify the known or suspected condition that represents the clin ical indicators below? The patient's Clinical Indicators include: Height - 06/21/2022 18:23 - 66?inches Weight - 06/21/2022 18:23 - 113.000 kg BMI - 06/21/2022 18:23 - 40.2 Options provided: -- Morbid (severe) obesity -- Exogenous obesity -- Endogenous obesity -- Other obesity -- Overweight -- Other - I will add my own diagnosis -- Dismiss - Not applicable / Not valid -- Dismiss - Clinically unable to determine / Un known -- Assign to another provider QUERY RESPONSE: The patient has morbid (severe) obesity due to e xcess calories. Query created by: Beata Coello on 06/22/2022 10:3 2 AM at 1448 PATIENT NAME: MESERET MOTTA [id number] 8913-12-15 13:51:00-00:00 [facility] Hospitalist Progress Note REPORT#:[id number] REPORT STATUS: Signed DATE:06/22/22 TIME: 1351 PATIENT: MESERET MOTTA UNIT #: [id number] ROOM/BED: [place] [id number] : 56 AGE: 67 SEX: F ATTEND: Nidhi Ashton MD ADM AUTHOR: Steffen Olvera MD * ALL edits or amendments must be made on the [employer] document * Subjective Free Text Subj Notes Free Text Subj Notes: Pt reports having back pain overnight Objective General VS/I O: Vital Signs: Date Time Temp Pulse Resp B/P B/P Pulse O2 O2 F low FiO2 Mean Ox Delivery Rate 06/22 09 36.4 76 18 102/67 78.7 97 Nasal cannula 06/22 0344 36.4 74 18 104/68 79.5 93 Room air 06/21 2310 36.4 80 19 120/76 90.2 99 Nasal cannula 06/21 2100 Nasal 4 cannula 06/21 194 36.3 77 19 119/75 90.0 95 Nasal cannula 24 hour I O ending at 0700: 06/22 0700 06/21 1900 Intake Total Output Total Balance Patient 113 kg Weight Weight Bed scale Measurement Method PATIENT WEIGHT: Weight (lb): 249 Weight (oz): 1.96 Weight (kg): 113.000 Physical Exam General appearance: alert, awake, oriented ENT: moist mucosal membranes Cardiovascular: normal heart sounds, regular rat e rhythm, no murmur Respiratory: aerating well, clear to auscultatio n, symmetric expansion Abdomen: non-tender, normal bowel sounds, soft, no distention Extremities: edema, moves all Neuro/SURGICAL SPECIALIST: alert, oriented X 3, normal speech, n o motor deficits Results Findings/Data: Laboratory Tests 06/22 06/22 06/22 06/22 06/21 1134 1134 1134 0515 1945 Chemistry Sodium (134 - 147 mEq/L) 132 L Potassium (3.4 - 5.0 mEq/L) 4.6 Chloride (100 - 108 mEq/L) 91 L Carbon Dioxide (21 - 33 mEq/l) 20 L Anion Gap (0 - 20) 26 H BUN (7 - 18 mg/dL) 67 H Creatinine (0.6 - 1.3 mg/dL) 7.0 H Glomerular Filtr Rate (80 - 90) 6.0 L Glucose (70 - 110 mg/dL) 270 H POC Glucose (70 - 110 MG/DL) 214 H 226 H Calcium (8.0 - 10.5 mg/dL) 9.4 B-Natriuretic Peptide (0 - 100 557.0 H PG/ML) PTH Intact (14.0 - 72.0 pg/mL) 661.2 H 06/21 06/21 1833 1814 Chemistry Sodium (134 - 147 mEq/L) 133 L Potassium (3.4 - 5.0 mEq/L) 4.3 Chloride (100 - 108 mEq/L) 90 L Carbon Dioxide (21 - 33 mEq/l) 21 Anion Gap (0 - 20) 26 H BUN (7 - 18 mg/dL) 55 H Creatinine (0.6 - 1.3 mg/dL) 6.3 H Glomerular Filtr Rate (80 - 90) 6.8 L Glucose (70 - 110 mg/dL) 181 H POC Glucose (70 - 110 MG/DL) 168 H Calcium (8.0 - 10.5 mg/dL) 9.9 Total Bilirubin (0.0 - 1.0 mg/dL) 0.70 AST (15 - 37 IUnit/L) 43 H ALT (30 - 65 IUnit/L) 214 H Total Alk Phosphatase (20 - 125 IUnit/L) 448 H Total Protein (6.4 - 8.2 g/dL) 6.8 Albumin (3.4 - 5.0 g/dL) 3.60 Laboratory Tests 06/22 06/22 06/22 06/21 1134 1134 0100 1814 Coagulation INR (0.8 - 1.2) 1.3 H 1.3 H PTT (Milena) (25.0 - 39.5 Seconds) 40.0 H 30.3 32 .1 PT Patient/Control Mix (9.3 - 12.9 SECONDS) 14. 9 H 14.9 H Laboratory Tests 06/22 06/21 1134 2007 Hematology WBC (4.5 - 11.0 x10 3/uL) 13.3 H 13.0 H RBC (3.54 - 5.02 x10 6/uL) 2.99 L 3.15 L Hgb (11.0 - 15.0 g/dL) 9.5 L 9.8 L Hct (33.0 - 45.0 %) 30.0 L 31.4 L MCV (81.0 - 99.0 fL) 100.3 H 99.7 H MCH (27.0 - 33.0 pg) 31.8 31.1 MCHC (33.0 - 37.0 g/dL) 31.7 L 31.2 L RDW (11.5 - 14.5 %) 16.8 H 17.2 H Plt Count (150 - 400 x10 3/uL) 159 173 MPV (7.0 - 9.0 fL) 9.7 H 9.8 H Neut % (Auto) (56.0 - 77.0 %) 86.4 H 81.2 H Lymph % (Auto) (14.0 - 32.0 %) 4.4 L 7.8 L Kerr % (Auto) (4.8 - 9.0 %) 6.8 9.0 Eos % (Auto) (0.3 - 3.7 %) 1.7 1.5 Baso % (Auto) (0.0 - 2.0 %) 0.2 0.2 Neut # (Auto) (2.0 - 7.6 x10 3/uL) 11.50 H 10.5 8 H Lymph # (Auto) (1.0 - 3.8 x10 3/uL) 0.58 L 1.02 Kerr # (Auto) (0.1 - 0.8 x10 3/uL) 0.90 H 1.17 H Eos # (Auto) (0.0 - 0.2 x10 3/uL) 0.22 H 0.19 Baso # (Auto) (0.0 - 0.2 x10 3/uL) 0.02 0.03 Abs Immat Gran (auto) (0.00 - 0.03 x10 3/uL) 0. 07 H 0.04 H Add Manual Diff NO NO Immature Gran % (0.0 - 2.0 %) 0.5 0.3 Nucleated RBC % (0 - 0 %) 0.0 0.0 Nucleated RBCs # (Man) (0.0 - 0.1 x10 3/uL) 0.0 0 0.00 Laboratory Tests 06/22 1134 Serology Hepatitis A IgM Ab (NON REACT. INDEX) NON REACT HERMES Hep Bs Antigen (NonReactive INDEX) NON REACTIVE Hep B Core IgM Ab (NON REACT. INDEX) NON REACTI VE Hepatitis C Antibody (NON REACT. INDEX) NON MARY CTIVE Diagnosis, Assessment Plan Free Text DxA P Notes Free text DxA P notes: Three-vessel coronary artery disease CV surgery following. Dopplers, alexandro duplex were ordered Continue heparin drip Continue on aspirin and atorvastatin Consult cardiology Acute respiratory failure with hypoxemia Patient presented with supplemental nasal cannu la oxygen -Secondary to pulmonary edema Elevated LFTs Secondary to hepatic congestion Monitor LFTs Leukocytosis -CT chest result pending -Afebrile End-stage renal disease on hemodialysis Patient is on a Sunday sched jaxon Banana Ripening Room Supervisor following Type 2 diabetes mellitus on insulin sliding scale Diabetic diet Hypothyroidism Resume Synthroid Anemia of chronic disease -Transfuse for Hb <7 -No bleeding Discussed with pt,sister and son at bedside Electronically Signed by Steffen Olvera MD o n 06/22/22 at 1356 RPT #:[id number] END OF REPORT 2022-06-22 12:50:00-00:00 [facility] Hospitalist Progress Note REPORT#:[id number] REPORT STATUS: Signed DATE:06/22/22 TIME: 1250 PATIENT: MESERET MOTTA UNIT #: [id number] ROOM/BED: [place] [address] : 56 AGE: 67 SEX: F ATTEND: Nidhi Ashton MD ADM AUTHOR: Steffen Olvera MD * ALL edits or amendments must be made on the el [employer]/computer document * Diagnosis, Assessment Plan Free Text DxA P Notes Free text DxA P notes: Three-vessel coronary artery disease CV surgery consulted for further evaluation Continue heparin drip Continue on aspirin and atorvastatin Consult cardiology Acute respiratory failure with hypoxemia Patient presented with supplemental nasal cannu la oxygen -Secondary to pulmonary edema Elevated LFTs Secondary to hepatic congestion Monitor LFTs End-stage renal disease on hemodialysis Patient is on a Sunday kathy coates Consult nephrology Type 2 diabetes mellitus Start insulin sliding scale Diabetic diet Hypothyroidism Resume Synthroid Electronically Signed by Steffen Olvera MD 06/22/22 at 1357 RPT #:[id number] END OF REPORT 2022-06-22 09:43:00-00:00 [facility] ([facility]) Cardiology Consultation REPORT#:[id number] REPORT STATUS: Signed DATE:06/22/22 TIME: 942 PATIENT: MESERET MOTTA UNIT #: [id number] ROOM/BED: [address] : 56 AGE: 67 SEX: F ATTEND: Nidhi Ashton MD ADM AUTHOR: Kristina Shah [employer]ER * ALL edits or amendments must be made on the [employer]/computer document * Kristina Shah 06/22/22 0943: History of Present Illness HPI Requesting Clinician: Dr. Ashton Reason for consult: Cardiac evaluation Chief complaint: Shortness of breath HPI: 67 YO female with PMHx of HTN, DM, CHF, ESRD on HD who initially presented at [facility] with SOB and fatigue. Sh e was treated for NSTEMI and acute CHF exacerbation. 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 She is transferred her for CABG evaluation. Echo showed LVEF 50%. Cardiolology is consulted for continuity of cardiac-related care . History - Adult longitudinal Past medical history: Reports: Atrial fibrillation (self diagnosis), Diabetes mellitus, Hypertension, Kidney disease/stones, Dyslipidemia (esrd). Additional medical history: ESRD on dialysis Past surgical history: Reports: Cholecystectomy, . Additional surgical history: Fistula X 3 Multiple Diaslysis subclavian catheter placemnet s. back and neck urgery Additional family history: Atrial fibrillation, PVD Alcohol use: Denies EtOH use Smoking status for patients 13 years old or olde r: Former Smoker Home medications: Home Medications: LISINOPRIL (ZESTRIL) #90 - SIG Obtained From Nyasia shin LEVOTHYROXINE (SYNTHROID) #90 - SIG Obtained Fro m Ava busPIRone (BUSPIRONE) 5 MG PO ONCE FAMOTIDINE (PEPCID) 40 MG PO DAILY amLODIPine (NORVASC) 10 MG PO DAILY METOPROLOL SUCC XL (TOPROL XL) 50 MG PO DAILY PANTOPRAZOLE DR (PROTONIX) 40 MG PO BID MUPIROCIN (BACTROBAN 2%) 1 APPLIC TOPICAL BID Allergies: Coded Allergies: codeine (06/06/01) DRUG INGREDIENT Enzo CODEINE Uncoded Allergies: CODEINE (HALLUCINATION 01/08/09) No Known Contrast Allergies (01/08/09) No Known Food Allergies (01/08/09) No Known Other Allergies (01/08/09) Ambulatory status: Wheelchair Review of Systems Constitutional: fatigue, generalized weakness. Respiratory: Reports: STEELE (dyspnea on exertion), SOB. Cardiovascular: Reports: dyspnea on exertion , edema, orthopnea, parox noctural dyspnea. Denies: chest pain, palpitations. GI: Denies: abdominal pain, nausea, vomiting. Neuro: Denies: confusion, dizziness. Psych: Denies: agitation, anxiety. Objective General VS/I O: Vital Signs: Date Time Temp Pulse Resp B/P B/P Pulse O2 O2 F low FiO2 Mean Ox Delivery Rate 06/22 0923 36.4 76 18 102/67 78.7 97 Nasal cannula 06/22 0344 36.4 74 18 104/68 79.5 93 Room air 06/21 2310 36.4 80 19 120/76 90.2 99 Nasal cannula 06/21 2100 Nasal 4 cannula 06/21 1947 36.3 77 19 119/75 90.0 95 Nasal cannula 24 hour I O ending at 0700: 06/22 0700 06/21 1900 Intake Total Output Total Balance Patient 113 kg Weight Weight Bed scale Measurement Method PATIENT WEIGHT: Weight (lb): 249 Weight (oz): 1.96 Weight (kg): 113.000 Medications: Active Meds + DC'd Last 24 Hrs Epoetin Vanesa-epbx (RETACRIT) 4,000 UNIT TuThSa@2 100 SUBQ Aspirin (ASPIRIN) 81 MG C BK PO Atorvastatin Calcium (LIPITOR) 40 MG 2100 PO Insulin Human Lispro (HUMALOG) 0 AC HS SUBQ Dextrose/Water (DEXTROSE 10% IN WATER) 125 ML DIR PRN IV (CKD) Dextrose/Water (DEXTROSE 10% IN WATER) 250 ML DIR PRN IV (CKD) Glucagon (GLUCAGON) 1 MG ASDIR PRN IM Melatonin (Melatonin) 3 MG BEDTIME PRN PRN PO Morphine Sulfate (morphine SULFATE) 2 MG Q4H PRN PRN IV Tramadol HCl (ULTRAM) 50 MG Q6H PRN PRN PO Acetaminophen (TYLENOL) 650 MG Q4H PRN PRN PO Heparin Sodium (HEPARIN 5000 UNITS/ML) 5,000 UNI T ASDIR PRN IV Heparin Sodium (Porcine) (HEPARIN 25,000 UNITS/ 1/2NS 500ML) 500 ML ASDIR IV (CKD) Magnesium Hydroxide (MILK OF MAGNESIA) 30 ML BED TIME PRN PRN PO Nitroglycerin (NITROSTAT) 0.4 MG Q5M PRN PRN SL Ondansetron HCl (ZOFRAN) 4 MG Q6H PRN PRN IV Physical Exam General appearance: obese, a lert, awake, oriented, no acute distress, pleasant, conversational Neck: non-tender, no JVD Cardiovascular: CV assessment: regular rate and rhythm Respiratory: decreased breath sounds, on oxygen, no distress Abdomen: non-tender, obese Genitourinary: no flank pain, no urinary cathete r Lower extremity: LE assessment: no edema Musculoskeletal: normal inspection Neuro/SURGICAL SPECIALIST: alert, oriented X 3, normal speech Skin: scabs lower extremities Results Findings/Data: Laboratory Tests 06/22 06/21 06/21 06/21 0515 1945 1833 1814 Chemistry Sodium (134 - 147 mEq/L) 133 L Potassium (3.4 - 5.0 mEq/L) 4.3 Chloride (100 - 108 mEq/L) 90 L Carbon Dioxide (21 - 33 mEq/l) 21 Anion Gap (0 - 20) 26 H BUN (7 - 18 mg/dL) 55 H Creatinine (0.6 - 1.3 mg/dL) 6.3 H Glomerular Filtr Rate (80 - 90) 6.8 L Glucose (70 - 110 mg/dL) 181 H POC Glucose (70 - 110 MG/DL) 214 H 226 H 168 H Calcium (8.0 - 10.5 mg/dL) 9.9 Total Bilirubin (0.0 - 1.0 mg/dL) 0.70 AST (15 - 37 IUnit/L) 43 H ALT (30 - 65 IUnit/L) 214 H Total Alk Phosphatase (20 - 125 IUnit/L) 448 H Total Protein (6.4 - 8.2 g/dL) 6.8 Albumin (3.4 - 5.0 g/dL) 3.60 Laboratory Tests 06/22 06/21 0100 1814 Coagulation INR (0.8 - 1.2) 1.3 H PTT (Milena) (25.0 - 39.5 Seconds) 30.3 32.1 PT Patient/Control Mix (9.3 - 12.9 SECONDS) 14. 9 H Laboratory Tests 06/21 2007 Hematology WBC (4.5 - 11.0 x10 3/uL) 13.0 H RBC (3.54 - 5.02 x10 6/uL) 3.15 L Hgb (11.0 - 15.0 g/dL) 9.8 L Hct (33.0 - 45.0 %) 31.4 L MCV (81.0 - 99.0 fL) 99.7 H MCH (27.0 - 33.0 pg) 31.1 MCHC (33.0 - 37.0 g/dL) 31.2 L RDW (11.5 - 14.5 %) 17.2 H Plt Count (150 - 400 x10 3/uL) 173 MPV (7.0 - 9.0 fL) 9.8 H Neut % (Auto) (56.0 - 77.0 %) 81.2 H Lymph % (Auto) (14.0 - 32.0 %) 7.8 L Kerr % (Auto) (4.8 - 9.0 %) 9.0 Eos % (Auto) (0.3 - 3.7 %) 1.5 Baso % (Auto) (0.0 - 2.0 %) 0.2 Neut # (Auto) (2.0 - 7.6 x10 3/uL) 10.58 H Lymph # (Auto) (1.0 - 3.8 x10 3/uL) 1.02 Kerr # (Auto) (0.1 - 0.8 x10 3/uL) 1.17 H Eos # (Auto) (0.0 - 0.2 x10 3/uL) 0.19 Baso # (Auto) (0.0 - 0.2 x10 3/uL) 0.03 Abs Immat Gran (auto) (0.00 - 0.03 x10 3/uL) 0. 04 H Add Manual Diff NO Immature Gran % (0.0 - 2.0 %) 0.3 Nucleated RBC % (0 - 0 %) 0.0 Nucleated RBCs # (Man) (0.0 - 0.1 x10 3/uL) 0.0 0 Results: labs reviewed, vital signs reviewed, [facility] personally rev'd Telemetry Interpretation: sinus rhythm Diagnosis, Assessment Plan Plan discussed with: patient, son, nurse Free Text DxA P Notes Free Text DxA P Notes: 67 YO female with PMHx of HTN, DM, CHF, ESRD on HD who initially presented at [facility] with SOB and fatigue. Sh regan was treated for NSTEMI and acute CHF exacerbation. 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 She is transferred her for CABG evaluation. Echo showed LVEF 50%. Cardiolology is consulted for continuity of cardiac-related care . 1. NSTEMI/Multivessel CAD CABG evaluation - workup ongoing continue Heparin gtt, ASA, statin, add low dose metoprolol telemetry monitoring will get EKG 2. Acute on chronic Diastolic CHF volume management per nephrology echo from OSH LVEF 50% 3. ESRD on HD per nephrology 4. Diabetes mellitus per admitting team 5. Hypertension BP soft low-dose beta-susan for CAD Appreciate the referral. Herson Tang 06/23/22 1905: Attestations Physician Attestation Agree w/findings plan: I Agree with the findings and plan as documented by Kristina Shah. at 1537 Electronically Signed by Herson Tang MD on at 5041 [facility] #:[id number] END OF REPORT 2022-06-22 08:34:00-00:00 [facility] ([facility]) Cardiothoracic Surgery Prog REPORT#:[id number] REPORT STATUS: Signed DATE:06/22/22 TIME: 833 PATIENT: MESERET MOTTA UNIT #: [id number] ROOM/BED: 4421-1 : 56 AGE: 67 SEX: F ATTEND: Adonis Gaytan MD ADM AUTHOR: Aleja Funk * ALL edits or amendments must be made on the [employer]/computer document * See Addendum Subjective HPI: 67 year old with PMH of insu david depnedent Diabetes x 10 years, on dialysis 2 1/2 years, with multiple failed fistulas (3) and mul tiple dialysis catheters placements on both right (7) and left (10) subcl floresita, peripheral vascular disease, hypothyroidism, neuropathy, kid tammy stones, presents for evaluation of coronary artery disease. She reports symptoms of shortness of breath with exertion and at rest that has been worsening ove r the past 1 year. She states over the past several months she has been unable to lay flat without dyspnea. She admits to bilateral lower extremity swelling . She completes dialysis on and Saturdays. She has attempted PD dialysis, however could not complete due to her neuropathy in her hands. She has a hx of PVD, with bilateral leg wounds i n her feet which have been present for the past 6+ months. She denies any previous inte rventions on her legs for her peripheral vascular disease. She presented to [facility] in [place] with complaints of dysnea on exertion and res t. Review of her records from previous hospital admission show elevated troponin with a peak of 5600. She underwent left heart catheterization which s howed multivessel coronary artery disease and subsequen tly transferred to [facility] for evaluation for coronary artery bypass surgery. She reports she quit smoking about 35 years ago. Also reports a history of multiple pneumonias over the past several years. She also has a history of kidney stones, last in 2017. Reports a family history of peripheral vascular disease, atrial fibrillation Review of Systems Constitutional: Denies: fatigue, generalized weakness. Skin: Denies: bruising, contusion. Allergy/Immun: Denies: itching, rhinorrhea. Eyes: Denies: itching, diplopia. Respiratory: Reports: STEELE (dyspnea on exertion), SOB. Cardiovascular: Reports: STEELE (dyspnea on exertion). Denies: ches t pain, palpitations. GI: Denies: constipation, diarrhea. : Denies: dysuria, hematuria. Heme: Denies: bleeding, bruising. Endocrine: Denies: polyuria. Neuro: Denies: bladder dysfunction, confusion, dizzines s. All systems rev neg: except as marked Objective General VS/I O Last Documented: Result Date Time Pulse Ox 97 06/22 923 B/P 102/67 06/22 923 B/P Mean 78.7 06/22 923 O2 Delivery Nasal cannula 06/22 923 Temp 97.5 06/22 923 Pulse 76 06/22 923 Resp 18 06/22 923 O2 Flow Rate 4 06/21 2100 24 hour I O ending at 0700: 06/22 0700 06/21 1900 Intake Total Output Total Balance Patient 113 kg Weight Weight Bed scale Measurement Method PATIENT WEIGHT: Weight (lb): 249 Weight (oz): 1.96 Weight (kg): 113.000 Physical Exam General appearance: alert, awake, oriented HEENT: mucosal membranes moist Neck: full range of motion, non-tender Cardiovascular: normal heart sounds, regular rat e rhythm Respiratory: shortness of breath, wheezing, melchor r to auscultation Abdomen: soft, non-tender Genitourinary: no bladder distention, no lemons Extremities: dry, moves all Neuro/SURGICAL SPECIALIST: alert, oriented X 3 Skin: dry, intact Results Findings/Data: Laboratory Tests 06/2215 1944 1833 1814 Chemistry Sodium (134 - 147 mEq/L) 133 L Potassium (3.4 - 5.0 mEq/L) 4.3 Chloride (100 - 108 mEq/L) 90 L Carbon Dioxide (21 - 33 mEq/l) 21 Anion Gap (0 - 20) 26 H BUN (7 - 18 mg/dL) 55 H Creatinine (0.6 - 1.3 mg/dL) 6.3 H Glomerular Filtr Rate (80 - 90) 6.8 L Glucose (70 - 110 mg/dL) 181 H POC Glucose (70 - 110 MG/DL) 214 H 226 H 168 H Calcium (8.0 - 10.5 mg/dL) 9.9 Total Bilirubin (0.0 - 1.0 mg/dL) 0.70 AST (15 - 37 IUnit/L) 43 H ALT (30 - 65 IUnit/L) 214 H Total Alk Phosphatase (20 - 125 IUnit/L) 448 H Total Protein (6.4 - 8.2 g/dL) 6.8 Albumin (3.4 - 5.0 g/dL) 3.60 Laboratory Tests 06/22 06/21 0100 1814 Coagulation INR (0.8 - 1.2) 1.3 H PTT (Milena) (25.0 - 39.5 Seconds) 30.3 32.1 PT Patient/Control Mix (9.3 - 12.9 SECONDS) 14. 9 H Laboratory Tests 06/21 2007 Hematology WBC (4.5 - 11.0 x10 3/uL) 13.0 H RBC (3.54 - 5.02 x10 6/uL) 3.15 L Hgb (11.0 - 15.0 g/dL) 9.8 L Hct (33.0 - 45.0 %) 31.4 L MCV (81.0 - 99.0 fL) 99.7 H MCH (27.0 - 33.0 pg) 31.1 MCHC (33.0 - 37.0 g/dL) 31.2 L RDW (11.5 - 14.5 %) 17.2 H Plt Count (150 - 400 x10 3/uL) 173 MPV (7.0 - 9.0 fL) 9.8 H Neut % (Auto) (56.0 - 77.0 %) 81.2 H Lymph % (Auto) (14.0 - 32.0 %) 7.8 L Kerr % (Auto) (4.8 - 9.0 %) 9.0 Eos % (Auto) (0.3 - 3.7 %) 1.5 Baso % (Auto) (0.0 - 2.0 %) 0.2 Neut # (Auto) (2.0 - 7.6 x10 3/uL) 10.58 H Lymph # (Auto) (1.0 - 3.8 x10 3/uL) 1.02 Kerr # (Auto) (0.1 - 0.8 x10 3/uL) 1.17 H Eos # (Auto) (0.0 - 0.2 x10 3/uL) 0.19 Baso # (Auto) (0.0 - 0.2 x10 3/uL) 0.03 Abs Immat Gran (auto) (0.00 - 0.03 x10 3/uL) 0. 04 H Add Manual Diff NO Immature Gran % (0.0 - 2.0 %) 0.3 Nucleated RBC % (0 - 0 %) 0.0 Nucleated RBCs # (Man) (0.0 - 0.1 x10 3/uL) 0.0 0 Diagnosis, Assessment Plan Hospital course to date: Free Text A P: 67 year old with PMH of insu david dependant Diabetes x 10 years, on dialysis 2 1/2 years, with multiple failed fistulas (3) and mul tiple dialysis catheters placements on both right (7) and left (10) subcl floresita, peripheral vascular disease, hypothyroidism, neuropathy, kid tammy stones, presents for evaluation of coronary artery disease. She reports symptoms of shortness of breath with exertion and at rest that has been worsening ove r the past 1 year. She states over the past several months she has been unable to lay flat without dyspnea. She admits to bilateral lower extremity swelling . She completes dialysis on and Saturdays. She has attempted PD dialysis, however could not complete due to her neuropathy in her hands. She has a hx of PVD, with bilateral leg wounds i n her feet which have been present for the past 6+ months. She denies any previous inte rventions on her legs for her peripheral vascular disease. She presented to [facility] in [place] with complaints of dyspnea on exe rtion and rest. Review of her records from previous hospital admission show elevated troponin with a peak of 5600. She underwent left heart catheterization which s howed multivessel coronary artery disease and subsequen tly transferred to [facility] for evaluation for coronary artery bypass surgery. She reports she quit smoking about 35 years ago. Also reports a history of multiple pneumonias over the past several years. She also has a history of kidney stones, last in 2017. Reports a family history of peripheral vascular disease, atrial fibrillation Assessment/plan 1) ESRD on dialysis- Renal consulted. 2) CAD Elevated troponin- peak 5600 Awaiting CD of heart catherization repeat echo. 3) Hypertension Continue home meds. 4) Diabetes - managed by primary 5) PVD Will obtain arterial doppler Carotid doppler ordered 6) Dyspnea/cough CT chest ordered 06/22/22 Patient resting comfortable. Denies chest pain. C/O Cough, Dyspnea Awaiting Cardiac workup. Nephrology consulted for dialysis. Consult PT/OT Obtain PFT Further recomendations to follow. at 0956 at 1546 Addendum 1: 06/22/22 0958 by Aleja Funk Multiple wounds noted on anterior aspects of bot h feet bilateral. - Obtain Dopplers for PVD at 0959 RPT #:[id number] END OF REPORT 2022-06-22 08:05:00-00:00 [facility] ([facility]) Clinical Note REPORT#:[id number] REPORT STATUS: Signed DATE:06/22/22 TIME: 08 PATIENT: MESERET MOTTA UNIT #: [id number] ROOM/BED: [place] [address] : 56 AGE: 67 SEX: F ATTEND: Nidhi Ashton MD ADM AUTHOR: Jennifer Shelton MD * ALL edits or amendments must be made on the el [employer]/computer document * Clinical Note Note: Procedure: Hemodialysis Indication: End-stage renal disease 4 hours 2K potassium QB 350 mL/min Dialysis flow 700 mm/min Ultrafiltration 3 to 4 L if tolerated Electronically Signed by Jennifer Shelton MD on at 0624 RPT #:[id number] END OF REPORT 2022-06-22 07:58:00-00:00 [facility] ([facility]) Nephrology Consultation Note REPORT#:[id number] REPORT STATUS: Signed DATE:06/22/22 TIME: 757 PATIENT: MESERET MOTTA UNIT #: [id number] ROOM/BED: [place] [address] : 56 AGE: 67 SEX: F ATTEND: Nidhi Ashton MD ADM AUTHOR: Jennifer Shelton MD * ALL edits or amendments must be made on the el [employer]/computer document * History of Present Illness Requesting clinician: Delmy Ashton Reason for consult: End stage renal disease Chief complaint: Transferred for CABG HPI: Patient seen and evaluated, discussed with care team, 67-year-old female with history of end-stage renal d isease on chronic hemodialysis Sunday, and Sunday, diabetes mellitus, peripheral arterial disease and hypertension who was transferred to [facility] for CABG. Terrence quevedo initially presented to [facility] in [place] compl aining of shortness of breath. Underwent left heart cath which showed diffuse di sease and patient was transferred for evaluation for CABG. renal consult was requ ested for management of her end-stage renal disease/ hemodialysis. History - Adult longitudinal Past medical history: Reports: Coronary artery disease, Diabetes phoenixi yolanda, Hypertension, Kidney disease/stones. Additional surgical history: Dialysis access surgery Medications: Home Medications: Medication Dose/Rte/Freq Days Qty Entered Last Max Daily Dose Reviewed LISINOPRIL (ZESTRIL) #90 - SIG Obtained 2 06/21/22 From Strength: 5 MG TAB Ava 1951 2001 LEVOTHYROXINE #90 - SIG Obtained 06/21/2206/21 From (SYNTHROID) Ava 2002 2004 Strength: 150 MCG TAB busPIRone (BUSPIRONE) 5 MG PO ONCE 06/21/22 Strength: 5 MG TAB 2003 2004 FAMOTIDINE (PEPCID) 40 MG PO DAILY 06/21/22 Strength: 40 MG TAB 2003 2004 amLODIPine (NORVASC) 10 MG PO DAILY 06/21/22 1 08/22/21 Strength: 10 MG TAB 2004 2004 METOPROLOL SUCC XL 50 MG PO DAILY 06/21/2206/08 (TOPROL XL) 2004 2004 Strength: [address] 40 MG PO BID 06/21/22 06/21/22 (PROTONIX) 2004 2004 Strength: 40 MG TAB. Current Hospital Medications: Ahfs Category Unknown Sig/Enedina Start time Last Medication Dose Route Stop Time Status Admin Melatonin 3 MG BEDTIME PRN PRN 06/21 1900 AC (Melatonin) PO 07/21 1858 2045 Blood Formation,Coagulation Sig/Enedina Start time Last Medication Dose Route Stop Time Status Admin Heparin Sodium 5,000 UNIT ASDIR PRN 06/21 1730 AC 06/22 (HEPARIN 5000 UNITS/ IV 07/21 1729 0240 ML) Heparin Sodium 500 ML ASDIR 06/21 173 CKD 06/08 4 (Porcine) IV 07/21 172 1847 (HEPARIN 25,000 UNITS/ 1/2NS 500ML) Cardiovascular Drugs Sig/Enedina Start time Last Medication Dose Route Stop Time Status Admin Atorvastatin Calcium 40 MG 2100 06/21 2100 AC 1 08/22 (LIPITOR) PO 07/21 2058 204 Nitroglycerin 0.4 MG Q5M PRN PRN 06/21 173 AC (NITROSTAT) SL 07/21 172 Central Nervous System Agents Sig/Enedina Start time Last Medication Dose Route Stop Time Status Admin Aspirin 81 MG C BK 06/22 0800 AC (ASPIRIN) PO 07/22 0759 Morphine Sulfate 2 MG Q4H PRN PRN 06/21 190 AC 06/22 (morphine SULFATE) IV 06/26 185 0104 Tramadol HCl 50 MG Q6H PRN PRN 06/21 1900 AC (ULTRAM) PO 06/26 185 Acetaminophen 650 MG Q4H PRN PRN 06/21 173 AC (TYLENOL) PO 07/21 172 Electrolytic, Caloric, And Bailey Sig/Enedina Start time Last Medication Dose Route Stop Time Status Admin Dextrose/Water 125 ML ASDIR PRN 06/21 1900 CKD (DEXTROSE 10% IN IV 07/21 1858 WATER) Dextrose/Water 250 ML ASDIR PRN 06/21 1900 CKD (DEXTROSE 10% IN IV 07/21 1858 WATER) Gastrointestinal Drugs Sig/Enedina Start time Last Medication Dose Route Stop Time Status Admin Magnesium Hydroxide 30 ML BEDTIME PRN PRN 06/21 1730 AC (MILK OF MAGNESIA) PO 07/21 172 Ondansetron HCl 4 MG Q6H PRN PRN 06/21 1730 AC (ZOFRAN) IV 07/21 172 Hormones And Synthetic Substit Sig/Enedina Start time Last Medication Dose Route Stop Time Status Admin Insulin Human Lispro 0 AC HS 06/21 2100 AC (HUMALOG) SUBQ 07/21 2058 Glucagon 1 MG ASDIR PRN 12/14 1900 AC (GLUCAGON) IM 07/21 1859 Allergies: Coded Allergies: codeine (06/06/01) DRUG INGREDIENT Enzo CODEINE Uncoded Allergies: CODEINE (HALLUCINATION 01/08/09) No Known Contrast Allergies (01/08/09) No Known Food Allergies (01/08/09) No Known Other Allergies (01/08/09) Review of Systems Constitutional: Reports: fatigue. Denies: chills, fever. Skin: Denies: abrasion, bruising. Allergy/Immun: Denies: hives, itching. Eyes: Denies: redness, discharge. ENT: Denies: ear drainage, ear ringing. Respiratory: Reports: STEELE (dyspnea on exertion). Denies: hemo ptysis. Cardiovascular: Denies: palpitations. GI: Denies: abdominal pain, nausea, vomiting. : Denies: dysuria, flank pain. Musculoskeletal: Denies: extremity pain. Heme: Denies: bleeding, bruising. Endocrine: Denies: cold intolerance, heat intolerance. Neuro: Denies: change in LOC, seizure. Psych: Denies: agitation, anxiety. Objective General VS/I O: Vital Signs: Date Time Temp Pulse Resp B/P B/P Pulse O2 O2 F low FiO2 Mean Ox Delivery Rate 06/22 034 36.4 74 18 104/68 79.5 93 Room air 06/210 36.4 80 19 120/76 90.2 99 Nasal cannula 06/21 2100 Nasal 4 cannula 06/21 1947 36.3 77 19 119/75 90.0 95 Nasal cannula 24 hour I O ending at 0700: 06/22 0700 06/21 190 Intake Total Output Total Balance Patient 113 kg Weight Weight Bed scale Measurement Method PATIENT WEIGHT: Weight (lb): 249 Weight (oz): 1.96 Weight (kg): 113.000 Medications: Active Meds + DC'd Last 24 Hrs Aspirin (ASPIRIN) 81 MG C BK PO Atorvastatin Calcium (LIPITOR) 40 MG 2100 PO Insulin Human Lispro (HUMALOG) 0 AC HS SUBQ Dextrose/Water (DEXTROSE 10% IN WATER) 125 ML DIR PRN IV (CKD) Dextrose/Water (DEXTROSE 10% IN WATER) 250 ML DIR PRN IV (CKD) Glucagon (GLUCAGON) 1 MG ASDIR PRN IM Melatonin (Melatonin) 3 MG BEDTIME PRN PRN PO Morphine Sulfate (morphine SULFATE) 2 MG Q4H PRN PRN IV Tramadol HCl (ULTRAM) 50 MG Q6H PRN PRN PO Acetaminophen (TYLENOL) 650 MG Q4H PRN PRN PO Heparin Sodium (HEPARIN 5000 UNITS/ML) 5,000 UNI T ASDIR PRN IV Heparin Sodium (Porcine) (HEPARIN 25,000 UNITS/ 1/2NS 500ML) 500 ML ASDIR IV (CKD) Magnesium Hydroxide (MILK OF MAGNESIA) 30 ML BED TIME PRN PRN PO Nitroglycerin (NITROSTAT) 0.4 MG Q5M PRN PRN SL Ondansetron HCl (ZOFRAN) 4 MG Q6H PRN PRN IV Physical Exam General appearance: alert, no acute distress Head/eyes: atraumatic, normocephalic ENT: normal nose Neck: non-tender, supple/no meningismus Cardiovascular: normal heart sounds, no rub Respiratory: aerating well, symmetric expansion Abdomen: non-tender, soft Genitourinary: no flank pain Extremities: pitting edema, non-tender Musculoskeletal: no CVA tenderness, no tendernes s Neuro/SURGICAL SPECIALIST: alert, normal speech Skin: dry, intact Results Findings/Data: Laboratory Tests 06/22 06/21 06/21 06/21 0515 1945 1833 1814 Chemistry Sodium (134 - 147 mEq/L) 133 L Potassium (3.4 - 5.0 mEq/L) 4.3 Chloride (100 - 108 mEq/L) 90 L Carbon Dioxide (21 - 33 mEq/l) 21 Anion Gap (0 - 20) 26 H BUN (7 - 18 mg/dL) 55 H Creatinine (0.6 - 1.3 mg/dL) 6.3 H Glomerular Filtr Rate (80 - 90) 6.8 L Glucose (70 - 110 mg/dL) 181 H POC Glucose (70 - 110 MG/DL) 214 H 226 H 168 H Calcium (8.0 - 10.5 mg/dL) 9.9 Total Bilirubin (0.0 - 1.0 mg/dL) 0.70 AST (15 - 37 IUnit/L) 43 H ALT (30 - 65 IUnit/L) 214 H Total Alk Phosphatase (20 - 125 IUnit/L) 448 H Total Protein (6.4 - 8.2 g/dL) 6.8 Albumin (3.4 - 5.0 g/dL) 3.60 Laboratory Tests 06/22 06/21 0100 1814 Coagulation INR (0.8 - 1.2) 1.3 H PTT (Milena) (25.0 - 39.5 Seconds) 30.3 32.1 PT Patient/Control Mix (9.3 - 12.9 SECONDS) 14. 9 H Laboratory Tests 06/21 2007 Hematology WBC (4.5 - 11.0 x10 3/uL) 13.0 H RBC (3.54 - 5.02 x10 6/uL) 3.15 L Hgb (11.0 - 15.0 g/dL) 9.8 L Hct (33.0 - 45.0 %) 31.4 L MCV (81.0 - 99.0 fL) 99.7 H MCH (27.0 - 33.0 pg) 31.1 MCHC (33.0 - 37.0 g/dL) 31.2 L RDW (11.5 - 14.5 %) 17.2 H Plt Count (150 - 400 x10 3/uL) 173 MPV (7.0 - 9.0 fL) 9.8 H Neut % (Auto) (56.0 - 77.0 %) 81.2 H Lymph % (Auto) (14.0 - 32.0 %) 7.8 L Kerr % (Auto) (4.8 - 9.0 %) 9.0 Eos % (Auto) (0.3 - 3.7 %) 1.5 Baso % (Auto) (0.0 - 2.0 %) 0.2 Neut # (Auto) (2.0 - 7.6 x10 3/uL) 10.58 H Lymph # (Auto) (1.0 - 3.8 x10 3/uL) 1.02 Kerr # (Auto) (0.1 - 0.8 x10 3/uL) 1.17 H Eos # (Auto) (0.0 - 0.2 x10 3/uL) 0.19 Baso # (Auto) (0.0 - 0.2 x10 3/uL) 0.03 Abs Immat Gran (auto) (0.00 - 0.03 x10 3/uL) 0. 04 H Add Manual Diff NO Immature Gran % (0.0 - 2.0 %) 0.3 Nucleated RBC % (0 - 0 %) 0.0 Nucleated RBCs # (Man) (0.0 - 0.1 x10 3/uL) 0.0 0 Diagnosis, Assessment Plan Free Text DxA P Notes Free text DxA P notes: Patient seen and evaluated, discussed with care team, images and laboratories reviewed. End-stage renal disease on c hronic hemodialysis, Sunday, and Sunday, plan for hemodialysis today Status post left heart cath with multi-vessel co ronary artery disease, respiratory evaluation for CABG. Hypertension: Monitor blood pressure closely and adjust medications as needed Hyperlipidemia: Lipitor Diabetes mellitus: Insulin: Monitor blood sugar closely adjust medications as needed Anemia: We will start Epogen 4000 subcu 3 times a week Elevated alkaline phosphatase we will check PTH. Electronically Signed by Jennifer Shelton MD on at 1003 RPT #:[id number] END OF REPORT 2022-06-21 17:40:00-00:00 [facility] REPORT#:[id number] REPORT STATUS: Signed DATE:06/21/22 TIME: 1739 PATIENT: MESERET MOTTA UNIT #: [id number] ROOM/BED: [place] [id number] : 56 AGE: 67 SEX: F ATTEND: Adonis Gaytan MD ADM AUTHOR: Aleja Funk * ALL edits or amendments must be made on the [employer]/computer document * Aleja Funk 06/21/22 1740: History of Present Illness HPI Chief complaint: Shortness of Breath, CAD, Dyspnea with exertion PCP: PCP: No Primary or Family Physician Requesting Clinician Grzegorz HPI: 67 year old with PMH of insu david depnedent Diabetes x 10 years, on dialysis 2 1/2 years, with multiple failed fistulas (3) and mul tiple dialysis catheters placements on both right (7) and left (10) subcl floresita, peripheral vascular disease, hypothyroidism, neuropathy, kid tammy stones, presents for evaluation of coronary artery disease. She reports symptoms of shortness of breath with exertion and at rest that has been worsening ove r the past 1 year. She states over the past several months she has been unable to lay flat without dyspnea. She admits to bilateral lower extremity swelling . She completes dialysis on and Saturdays. She has attempted PD dialysis, however could not complete due to her neuropathy in her hands. She has a hx of PVD, with bilateral leg wounds i n her feet which have been present for the past 6+ months. She denies any previous inte rventions on her legs for her peripheral vascular disease. She presented to [facility] in [place] with complaints of dysnea on exertion and res t. Review of her records from previous hospital admission show elevated troponin with a peak of 5600. She underwent left heart catheterization which s howed multivessel coronary artery disease and subsequen tly transferred to [facility] for evaluation for coronary artery bypass surgery. She reports she quit smoking about 35 years ago. Also reports a history of multiple pneumonias over the past several years. She also has a history of kidney stones, last in 2017. Reports a family history of peripheral vascular disease, atrial fibrillation History Past Medical History: Reports: Diabetes mellitus, Hypertension, Kidney disease/stones, Dyslipidemia ( esrd). Additional Medical History: ESRD on dialysis Past Surgical History: Reports: Cholecystectomy, . Additional Surgical History: Fistula X 3 Multiple Diaslysis subclavian catheter placemnet s. Additional Family History Atrial fibrillation, PVD Alcohol Use Denies EtOH use Smoking status for patients 13 years old or olde r: Former Smoker Allergies: Coded Allergies: codeine (06/06/01) DRUG INGREDIENT Enzo CODEINE Uncoded Allergies: CODEINE (HALLUCINATION 01/08/09) No Known Contrast Allergies (01/08/09) No Known Food Allergies (01/08/09) No Known Other Allergies (01/08/09) Review of Systems Review of Systems Constitutional: Reports: fatigue. Denies: generalized weakness. Skin: Denies: bruising, contusion. Allergy/Immun: Denies: hives, itching. Eyes: Denies: itching, diplopia. ENT: Denies: ear drainage, ear ringing. Respiratory: Reports: STEELE (dyspnea on exertion), productive c ough (sputum), SOB. Denies: pleurisy, pleuritic pain. Cardiovascular: Reports: STEELE (dyspnea on exertion), edema, ortho pnea. Denies: chest pain, palpitations. GI: Denies: constipation, diarrhea. : Denies: dysuria, frequency, hematuria. Musculoskeletal: Denies: joint pain, joint swelling. Heme: Denies: bleeding, bruising. Endocrine: Reports: cold intolerance. Neuro: Denies: confusion, dizziness. All systems rev neg: except as marked Objective Physical Exam VS/I O: Last Documented: Result Date Time Pulse Ox 93 06/22 344 B/P 104/68 06/22 344 B/P Mean 79.5 06/22 344 O2 Delivery Room air 06/22 344 Temp 97.5 06/22 344 Pulse 74 06/22 344 Resp 18 06/22 344 O2 Flow Rate 4 06/21 2100 24 hour I O ending at 0700: 06/22 0700 06/21 1900 Intake Total Output Total Balance Patient 113 kg Weight Weight Bed scale Measurement Method PATIENT WEIGHT: Weight (lb): 249 Weight (oz): 1.96 Weight (kg): 113.000 General appearance: alert, awake, oriented HEENT: anicteric, mucosal membranes moist Neck: full range of motion, non-tender Cardiovascular: no rub, no thrill Respiratory: decreased breath sounds, wheezing Abdomen: soft, non-tender Genitourinary: no bladder distention, no flank p ain Extremities: dry, moves all, Bilateral l oweer feet dressing in place. Multiple wounds on the anterior feet. Musculoskeletal: full range of motion Neuro/SURGICAL SPECIALIST: alert, oriented X 3 Results Findings/Data: Laboratory Tests 06/22 06/21 06/21 06/21 0515 1945 1833 1814 Chemistry Sodium (134 - 147 mEq/L) 133 L Potassium (3.4 - 5.0 mEq/L) 4.3 Chloride (100 - 108 mEq/L) 90 L Carbon Dioxide (21 - 33 mEq/l) 21 Anion Gap (0 - 20) 26 H BUN (7 - 18 mg/dL) 55 H Creatinine (0.6 - 1.3 mg/dL) 6.3 H Glomerular Filtr Rate (80 - 90) 6.8 L Glucose (70 - 110 mg/dL) 181 H POC Glucose (70 - 110 MG/DL) 214 H 226 H 168 H Calcium (8.0 - 10.5 mg/dL) 9.9 Total Bilirubin (0.0 - 1.0 mg/dL) 0.70 AST (15 - 37 IUnit/L) 43 H ALT (30 - 65 IUnit/L) 214 H Total Alk Phosphatase (20 - 125 IUnit/L) 448 H Total Protein (6.4 - 8.2 g/dL) 6.8 Albumin (3.4 - 5.0 g/dL) 3.60 Laboratory Tests 06/22 06/21 0100 1814 Coagulation INR (0.8 - 1.2) 1.3 H PTT (Milena) (25.0 - 39.5 Seconds) 30.3 32.1 PT Patient/Control Mix (9.3 - 12.9 SECONDS) 14. 9 H Laboratory Tests 06/21 2007 Hematology WBC (4.5 - 11.0 x10 3/uL) 13.0 H RBC (3.54 - 5.02 x10 6/uL) 3.15 L Hgb (11.0 - 15.0 g/dL) 9.8 L Hct (33.0 - 45.0 %) 31.4 L MCV (81.0 - 99.0 fL) 99.7 H MCH (27.0 - 33.0 pg) 31.1 MCHC (33.0 - 37.0 g/dL) 31.2 L RDW (11.5 - 14.5 %) 17.2 H Plt Count (150 - 400 x10 3/uL) 173 MPV (7.0 - 9.0 fL) 9.8 H Neut % (Auto) (56.0 - 77.0 %) 81.2 H Lymph % (Auto) (14.0 - 32.0 %) 7.8 L Kerr % (Auto) (4.8 - 9.0 %) 9.0 Eos % (Auto) (0.3 - 3.7 %) 1.5 Baso % (Auto) (0.0 - 2.0 %) 0.2 Neut # (Auto) (2.0 - 7.6 x10 3/uL) 10.58 H Lymph # (Auto) (1.0 - 3.8 x10 3/uL) 1.02 Kerr # (Auto) (0.1 - 0.8 x10 3/uL) 1.17 H Eos # (Auto) (0.0 - 0.2 x10 3/uL) 0.19 Baso # (Auto) (0.0 - 0.2 x10 3/uL) 0.03 Abs Immat Gran (auto) (0.00 - 0.03 x10 3/uL) 0. 04 H Add Manual Diff NO Immature Gran % (0.0 - 2.0 %) 0.3 Nucleated RBC % (0 - 0 %) 0.0 Nucleated RBCs # (Man) (0.0 - 0.1 x10 3/uL) 0.0 0 Diagnosis, Assessment Plan Free Text A P: 67 year old with PMH of insu david dependant Diabetes x 10 years, on dialysis 2 1/2 years, with multiple failed fistulas (3) and mul tiple dialysis catheters placements on both right (7) and left (10) subcl floresita, peripheral vascular disease, hypothyroidism, neuropathy, kid tammy stones, presents for evaluation of coronary artery disease. She reports symptoms of shortness of breath with exertion and at rest that has been worsening ove r the past 1 year. She states over the past several months she has been unable to lay flat without dyspnea. She admits to bilateral lower extremity swelling . She completes dialysis on and Saturdays. She has attempted PD dialysis, however could not complete due to her neuropathy in her hands. She has a hx of PVD, with bilateral leg wounds i n her feet which have been present for the past 6+ months. She denies any previous inte rventions on her legs for her peripheral vascular disease. She presented to [facility] in [place] with complaints of dyspnea on exe rtion and rest. Review of her records from previous hospital admission show elevated troponin with a peak of 5600. She underwent left heart catheterization which s howed multivessel coronary artery disease and subsequen tly transferred to [facility] for evaluation for coronary artery bypass surgery. She reports she quit smoking about 35 years ago. Also reports a history of multiple pneumonias over the past several years. She also has a history of kidney stones, last in 2017. Reports a family history of peripheral vascular disease, atrial fibrillation Assessment/plan 1) ESRD on dialysis- Renal consulted. 2) CAD Elevated troponin- peak 5600 Awaiting CD of heart catherization repeat echo. 3) Hypertension Continue home meds. 4) Diabetes - managed by primary 5) PVD Will obtain arterial doppler Carotid doppler ordered 6) Dyspnea/cough CT chest ordered Further recomendations to follow. Delmy Ashton 06/30/22 1543: Attestations Physician Attestation Agree w/findings plan: I have seen and examined Ms. Duron. I agree wit h the findings and plan as documented by AL Linares. Briefly, 67-year-old female with coronary artery disease. Patient was transferred to [facility] for surgical evaluation. Patient is a high risk candidate for surgery I h ad a long discussion with the patient, explained to her the angiogram finding and need for surgical revascularization. I have discussed with her the procedure, risk involved, benefit, alternatives, STS r isk score, and complications. She will be presented in the high risk cardiac surgery conference. I h laila explained the plan to the patient. Further recommendations to follow. Thanks for the kind consult Electronically Signed by Aleja Funk on 1 08/23/21 at 0833 at 1546 RPT #:[id number] END OF REPORT 2022-06-21 17:29:00-00:00 [facility] Hospitalist History Physical REPORT#:[id number] REPORT STATUS: Signed DATE:06/21/22 TIME: 1728 PATIENT: MESERET MOTTA UNIT #: [id number] ROOM/BED: [place] [id number] : 56 AGE: 67 SEX: F ATTEND: Nidhi Ashton MD ADM AUTHOR: Steffen Olvera MD * ALL edits or amendments must be made on the el [employer]/computer document * History of Present Illness HPI Chief complaint: Three-vessel disease HPI: 67-year-old female with history of end-stage asya al disease on hemodialysis, hypertension, diabetes, hypothyroidism transferr ed from [facility] for evaluation for CABG. Patient presen matthew here 1 week ago with complaints of shortness of breath and lower extr emity edema. During hospital stay she was found to have l iver congestion secondary to CHF. Echo showed EF 50 %. She underwent cardiac catheterization on 06/08 2 which showed 80% to 90% mid LAD disease, 70% distal 70% distal RCA stenosis. Patient transferred here for CV surgery evaluation for CABG History Medication/Allergy-Vaccine Hx Allergies: Coded Allergies: codeine (06/06/01) DRUG INGREDIENT Enzo CODEINE Uncoded Allergies: CODEINE (HALLUCINATION 01/08/09) No Known Contrast Allergies (01/08/09) No Known Food Allergies (01/08/09) No Known Other Allergies (01/08/09) Review of Systems All systems rev neg: except as noted Physical Exam VS/I O: Patient Weight and BMI Weight (kg): 113.000 BMI: 40.2 General:Well-nourished, well-appearing , in no a cute distress Head: Normocephalic, atraumatic Eyes: PERRL, EOM intact, conjunctiva and sclera clear, without nystagmus, lids normal Nose: No deformity, no discharge, no inflammatio n, no lesions Mouth: Moist mucous membranes Neck: No masses, no tenderness.no thyromegaly, n o abnormal cervical nodes, trachea midline Chest: Grossly normal appearance Lungs: Clear bilaterally with normal respiratory effort Heart: Regular rate and rhyt hm, normal S1, S2, no murmurs, no rubs, no gallops, no clicks Abdomen: Soft, non-tender, no organomegaly, no m asses noted Musculoskeletal: No deformity, no scolio sis noted of thoracic or lumbar spine, joint ROM grossly normal, normal gait and statio n Extremities:B/L pitting edema. Pulses: Pulses normal in all extremities Skin: Intact without significant lesions, or pito hes Neurological: Alert and oriented to time, person , place. No focal deficits Diagnosis, Assessment Plan Free Text A P: Three-vessel coronary artery disease CV surgery consulted for further evaluation Continue heparin drip Continue on aspirin and atorvastatin Consult cardiology Acute respiratory failure with hypoxemia Patient presented with supplemental nasal cannu la oxygen -Secondary to pulmonary edema Elevated LFTs Secondary to hepatic congestion Monitor LFTs End-stage renal disease on hemodialysis Patient is on a Sunday sched ule Consult nephrology Type 2 diabetes mellitus Start insulin sliding scale Diabetic diet Hypothyroidism Resume Synthroid DVT ppx;Heparin Electronically Signed by Steffen Olvera MD n 06/22/22 at 1414 RPT #:[id number] END OF REPORT
[2023-01-27 16:40] LABS: Absolute Lymphocytes (CBC) 0.4 K/uL (0.7-4.9); Hematocrit 25.4 % (36.0-45.0); Lymphocytes % 2.1 % (15.3-44.8); MPV 6.6 fL (7.6-11.3); RBC Red Blood Cell Count 2.88 M/uL (3.86-4.86)
[2023-01-27 16:59] LABS: Albumin 2.5 g/dL (3.4-5.0); Bilirubin Total 0.8 mg/dL (0.2-1.0); Potassium 3.2 mEq/L (3.5-5.1); Protein, Total 7.5 g/dL (6.4-8.2)
[2023-01-27] MEDS ORDERED: MORPHINE 4 MG/ML SYR ONE (17:04)
[2023-01-27] MEDS ORDERED: NA CHLORIDE 0.9% 250 ML ONE (17:04)
[2023-01-27] MEDS ORDERED: VANCOMYCIN 1 GM/VIAL ONE (17:04)
[2023-01-27] MEDS ORDERED: ONDANSETRON 4 MG/2 ML VIAL ONE (17:04)
[2023-01-27] MEDS ORDERED: ACETAMINOPHEN 500 MG TAB ONE (17:05)
--- NOTE | 2023-01-27 17:13 | RAD REPORT ---
EXAM DESCRIPTION: RAD -Hand Left 3 View - 01/27/2023 4:40 pm CLINICAL HISTORY: Left hand pain FINDINGS: Cortical irregularity distal aspect of third distal phalanx presumably osteomyelitis. Prio r amputation can also have this appearance and should be correlated clinically. No dislocation
[2023-01-27 17:54] LABS: Blood Morphology Comment NOT SEEN (NOT SEEN); Platelet Estimate ADEQ; White Blood Cell Scan OK (OK)
[2023-01-27 18:12] LABS: SARS-CoV-2 Antigen Rapid Res Negative (Negative)
--- NOTE | 2023-01-27 18:13 | ER ---
Nurse's Notes [facility] Name: Meseret Gallego Age: 67 yrs Sex: Female : 1955 Arrival Date: 01/27/2023 Time: 15:09 Bed 8 Private MD: Diagnosis: Osteomyelitis;Tenosynovitis Presentation: 01/27 15:25 Chief complaint: EMS states: Chronic wound to left middle finger, being treated by Dr. negra Peterson, reports worsening redness and swelling that extends to hand since last night. Coronavirus screen: At this time, the client does not indicate any symptoms associated with coronavirus-19. Ebola Screen: No symptoms or risks identified at this time. Initial Sepsis Screen: Does the patient meet any 2 criteria? No. Patient's initial sepsis screen is negative. Does the patient have a suspected source of infection? No. Patient's initial sepsis screen is negative. Risk Assessment: Do you want to hurt yourself or someone else? Patient reports no desire to harm self or others. Onset of symptoms was January 26, 2023. 15:25 Method Of Arrival: Wheelchair hb 15:25 Acuity: CHRISTOPHER 3 hb Historical: - Allergies: 15:27 Codeine; hb 15:27 Phenergan; hb 15:27 Tape; hb - Home Meds: 19:57 amlodipine 10 mg tab 1 tab once daily [Active]; aspirin 81 mg Oral capsule daily kl [Active]; atorvastatin 40 mg Oral tab 1 tab every day at bedtime [Active]; BRILINTA 90 mg Oral tab 1 tab 2 times per day [Active]; bupropion HCl 75 mg Oral tablet 2 times per day [Active]; clopidogrel 75 mg Oral tablet daily [Active]; furosemide 80 mg Oral tab 1 tab once daily [Active]; Humalog U-100 Insulin 100 unit/mL Sub-Q crtg 50 unit twice a day [Active]; Insulin: Regular Sub-Q [Active]; Lantus U-100 Insulin 100 unit/mL Sub-Q crtg [Active]; lisinopril 5 mg Oral tab 1 tab once daily [Active]; metoprolol tartrate 12.5 mg Oral tab 2 times per day [Active]; midodrine 10 mg Oral tab 1 tab 3 times per day [Active]; Protonix 40 mg Oral TbEC 1 tab once daily [Active]; sucralfate 1 gram Oral tab 1 tab 2 times per day [Active]; Synthroid 150 mcg Oral tablet 1 tab daily [Active]; Wellbutrin XL 150 mg Oral Tb24 1 tab once daily [Active]; Vitamin D Oral daily [Active]; - PMHx: 15:27 Dialysis; Hypothyroidism; Hypertension; Hypercholesterolemia; Myocardial infarction; hb Diabetes - IDDM; - PSHx: 15:27 2 heart stents; section; back; knee; neck; hb - Immunization history:: Adult Immunizations up to date. - Social history:: Smoking status: Patient denies any tobacco usage or history of. Screenin:29 [facility] ED Fall Risk Assessment (Adult) History of falling in the last 3 months, kl including since admission No falls in past 3 months (0 pts) Confusion or Disorientation No (0 pts) Intoxicated or Sedated No (0 pts) Impaired Gait Yes (1 pt) Mobility Assist Device Used Yes (1 pt) Altered Elimination No (0 pt) Score/Fall Risk Level 0 - 2 = Low Risk Oriented to surroundings, Maintained a safe environment. Abuse screen: Denies threats or abuse. Nutritional screening: No deficits noted. Tuberculosis screening: No symptoms or risk factors identified. Assessment: 16:00 General: Appears uncomfortable, Behavior is calm, cooperative, Reports chills for 0-12 aa5 hours. Pain: Complains of pain in left hand Pain currently is 6 out of 10 on a pain scale. Quality of pain is described as tender, Is continuous, Aggravated by touch and movement. Neuro: Level of Consciousness is awake, alert, obeys commands, Oriented to person, place, time, situation. Cardiovascular: Heart tones S1 S2 present Patient's skin is warm and dry. Dialysis catheter noted to right upper chest . Rhythm is regular. Respiratory: Airway is patent Respiratory effort is even, unlabored, Respiratory pattern is regular, symmetrical. GI: No signs and/or symptoms were reported involving the gastrointestinal system. : No signs and/or symptoms were reported regarding the genitourinary system. EENT: No signs and/or symptoms were reported regarding the EENT system. Derm: Skin is pink, warm \T\ dry. swelling and redness noted to left middle finger, tissue to distal left middle finger is whitish in color. Redness that is hot to the touch noted to palmar aspect of left FA. Musculoskeletal: Reports pain in left hand multiple sore lesions noted to toes of left foot, pt also reports chronic wound to right foot, right foot with dressing in place. 17:10 Reassessment: Patient is alert, oriented x 3, equal unlabored respirations, skin aa5 warm/dry/pink. 17:57 Reassessment: Patient is alert, oriented x 3, equal unlabored respirations, skin aa5 warm/dry/pink. 19:29 Reassessment: Patient appears in no apparent distress at this time. Patient is alert, kl oriented x 3, equal unlabored respirations, skin warm/dry/pink. Patient states feeling better. Patient states symptoms have improved. Vital Signs: 15:25 BP 138 / 103; Pulse 102; Resp 16; Temp 97.9; Pulse Ox 100% on R/A; Weight 82.1 kg; hb Height 5 ft. 6 in. ; Pain 6/10; 16:09 BP 142 / 65; Pulse 103; Resp 23 S; Temp 99.8(O); Pulse Ox 100% on R/A; aa5 17:10 BP 125 / 57; Pulse 102; Resp 24 S; Temp 100.7(O); Pulse Ox 98% on R/A; Pain 6/10; aa5 17:53 BP 109 / 56; Pulse 95; Pulse Ox 97% on R/A; ap3 17:57 Temp 99.7(O); aa5 19:28 BP 117 / 56; Pulse 93; Resp 18; Temp 98.6(TE); Pulse Ox 94% on R/A; kl 15:25 Body Mass Index 29.21 (82.10 kg, 167.64 cm) hb 15:25 Pain Scale: Adult hb 17:10 Pain Scale: Adult aa5 ED Course: 15:13 Patient arrived in ED. sg5 15:27 Triage completed. hb 15:28 Arm band placed on. hb 15:52 Zeinab Palacio, RN is Primary Nurse. aa5 15:58 Regine Dhillon is Attending Physician. sk4 16:00 Patient has correct armband on for positive identification. Bed in low position. Call aa5 light in reach. Side rails up X2. Client placed on continuous cardiac and pulse oximetry monitoring. NIBP monitoring applied. 16:25 Missed attempt(s): 20 gauge in right forearm. Bleeding controlled, band aid applied, aa5 catheter tip intact. 16:26 Initial lab(s) drawn, by me, sent to lab. First set of blood cultures drawn by me. aa5 16:41 Hand Left 3 View XRAY In Process Unspecified. EDMS 16:47 Second set of blood cultures drawn by me. aa5 17:29 initiated a transfer with Gama Camp from the [facility] Transfer [place]. eb 17:57 COVID swab sent to lab. aa5 18:11 transfer cancelled/ Dr. Hayes has agreed to keep patient. eb 18:12 Abran An MD is Hospitalizing Provider. sk4 19:10 Report given to PERRI Gaytan and PERRI Gonzáles. aa5 19:54 No provider procedures requiring assistance completed. Patient admitted, IV remains in kl place. Administered Medications: 16:59 Drug: Ondansetron IVP 4 mg Route: IVP; Site: right forearm; aa5 17:13 Follow up: Response: No adverse reaction aa5 17:00 Drug: Acetaminophen PO 1000 mg Route: PO; aa5 17:57 Follow up: Response: No adverse reaction aa5 17:01 Drug: morphine IVP or IV 4 mg Route: IVP; Infused Over: 4 mins; Site: right antecubital;aa5 17:12 Follow up: Response: No adverse reaction aa5 17:10 Drug: vancoMYCIN IVPB 1 grams Route: IVPB; Infused Over: 2 hrs; Site: right forearm; aa5 17:57 Follow up: Response: No adverse reaction aa5 19:20 Follow up: IV Status: Completed infusion; IV Intake: 250ml kl 19:20 Drug: morphine IVP or IV 2 mg Route: IVP; Infused Over: 4 mins; Site: right forearm; kl 19:59 Follow up: Response: No adverse reaction; Marked relief of symptoms kl 19:28 Drug: Cefepime IVPB 1 grams Route: IVPB; Rate: 200 ml/hr; Infused Over: 30 mins; Site: kl right forearm; 19:59 Follow up: IV Status: Completed infusion; IV Intake: 100ml kl Medication: 19:55 VIS not applicable for this client. kl Intake: 19:20 IV: 250ml; Total: 250ml. kl 19:59 IV: 100ml; Total: 350ml. kl Outcome: 18:13 Decision to Hospitalize by Provider. sk4 19:52 Admitted to Med/surg via wheelchair, room 224, with chart, Report called to Marisol connolly 19:52 Condition: improved 19:52 Discharge instructions given to patient, Instructed on the need for admit, Demonstrated understanding of instructions. 20:28 Patient left the ED. pf1 Signatures: Dispatcher [employer] EDMS Kim Billy, RN RN Zeinab Clifford RN RN aa5 Denise Obando, RN Kiki Lowry RN RN ap3 Angeles Mccallum Pamala, RN RN pf1 Regine Dhillon sk4 Kira Scherer RN RN sg5
--- NOTE | 2023-01-27 18:13 | EDPHYS ---
Physician Documentation [facility] Name: Meseret Galelgo Age: 67 yrs Sex: Female : 1955 Arrival Date: 01/27/2023 Time: 15:09 Bed 8 Private MD: ANT Physician Regine Dhillon HPI: 01/27 16:07 This 67 yrs old Female presents to ER via Wheelchair with complaints of Wound Check. sk4 16:07 pt has pain/swelling in left middle finger x 24 hours. has lesion to tip that has been sk4 treated with iv vanc after dialysis mwf and last abx dose 2 weeks ago. was looking sig better until last 1 day. no injury/trauma. no fever. no drainage. . Historical: - Allergies: 15:27 Codeine; hb 15:27 Phenergan; hb 15:27 Tape; hb - Home Meds: 19:57 amlodipine 10 mg tab 1 tab once daily [Active]; aspirin 81 mg Oral capsule daily kl [Active]; atorvastatin 40 mg Oral tab 1 tab every day at bedtime [Active]; BRILINTA 90 mg Oral tab 1 tab 2 times per day [Active]; bupropion HCl 75 mg Oral tablet 2 times per day [Active]; clopidogrel 75 mg Oral tablet daily [Active]; furosemide 80 mg Oral tab 1 tab once daily [Active]; Humalog U-100 Insulin 100 unit/mL Sub-Q crtg 50 unit twice a day [Active]; Insulin: Regular Sub-Q [Active]; Lantus U-100 Insulin 100 unit/mL Sub-Q crtg [Active]; lisinopril 5 mg Oral tab 1 tab once daily [Active]; metoprolol tartrate 12.5 mg Oral tab 2 times per day [Active]; midodrine 10 mg Oral tab 1 tab 3 times per day [Active]; Protonix 40 mg Oral TbEC 1 tab once daily [Active]; sucralfate 1 gram Oral tab 1 tab 2 times per day [Active]; Synthroid 150 mcg Oral tablet 1 tab daily [Active]; Wellbutrin XL 150 mg Oral Tb24 1 tab once daily [Active]; Vitamin D Oral daily [Active]; - PMHx: 15:27 Dialysis; Hypothyroidism; Hypertension; Hypercholesterolemia; Myocardial infarction; hb Diabetes - IDDM; - PSHx: 15:27 2 heart stents; section; back; knee; neck; hb - Immunization history:: Adult Immunizations up to date. - Social history:: Smoking status: Patient denies any tobacco usage or history of. ROS: 16:07 Constitutional: Negative for fever, chills, and weight loss. sk4 Exam: 16:07 Constitutional: This is a well developed, well nourished patient who is awake, alert, sk4 and in no acute distress. MS/ Extremity: left middle finger swollen. pain with extension. fixed flexed position. erythema extending to wrist. tenderness along flexor sheath. Vital Signs: 15:25 BP 138 / 103; Pulse 102; Resp 16; Temp 97.9; Pulse Ox 100% on R/A; Weight 82.1 kg; hb Height 5 ft. 6 in. ; Pain 6/10; 16:09 BP 142 / 65; Pulse 103; Resp 23 S; Temp 99.8(O); Pulse Ox 100% on R/A; aa5 17:10 BP 125 / 57; Pulse 102; Resp 24 S; Temp 100.7(O); Pulse Ox 98% on R/A; Pain 6/10; aa5 17:53 BP 109 / 56; Pulse 95; Pulse Ox 97% on R/A; ap3 17:57 Temp 99.7(O); aa5 19:28 BP 117 / 56; Pulse 93; Resp 18; Temp 98.6(TE); Pulse Ox 94% on R/A; kl 15:25 Body Mass Index 29.21 (82.10 kg, 167.64 cm) hb 15:25 Pain Scale: Adult hb 17:10 Pain Scale: Adult aa5 MDM: 15:58 Patient medically screened. sk4 16:07 Differential diagnosis: cellulitis, tenosynovitis. Data reviewed: vital signs, nurses sk4 notes, lab test result(s), radiologic studies. 18:11 Consideration of Admission/Observation Patient was admitted/placed on observation. sk4 Management of patient was discussed with the following: Hospitalist: admission. Sub Prior: boubacar: consult. ED course: exam consistent with tenosynovitis. consulted dr hamlin who plans to operate in the am. advises NPO p mn. updated pt on results/plan. admitted to hospitalist.. 01/27 16:06 Order name: CBC with Diff; Complete Time: 18:01 [facility] 01/27 16:06 Order name: CMP; Complete Time: 17:17 [facility] 01/27 16:06 Order name: Blood Culture Adult (2) [facility] 01/27 16:06 Order name: Lactate w/ 2H reflex if indic.; Complete Time: 17:17 [facility] 01/27 17:32 Order name: SARS RAPID; Complete Time: 18:52 eb 01/27 17:54 Order name: CBC Smear Scan; Complete Time: 18:01 EDMS 01/27 16:06 Order name: Hand Left 3 View XRAY; Complete Time: 17:17 [facility] 01/27 16:06 Order name: IV Saline Lock; Complete Time: 16:48 [facility] 01/27 16:06 Order name: Labs collected and sent; Complete Time: 16:34 [facility] Administered Medications: 16:59 Drug: Ondansetron IVP 4 mg Route: IVP; Site: right forearm; aa5 17:13 Follow up: Response: No adverse reaction aa5 17:00 Drug: Acetaminophen PO 1000 mg Route: PO; aa5 17:57 Follow up: Response: No adverse reaction aa5 17:01 Drug: morphine IVP or IV 4 mg Route: IVP; Infused Over: 4 mins; Site: right antecubital;aa5 17:12 Follow up: Response: No adverse reaction aa5 17:10 Drug: vancoMYCIN IVPB 1 grams Route: IVPB; Infused Over: 2 hrs; Site: right forearm; aa5 17:57 Follow up: Response: No adverse reaction aa5 19:20 Follow up: IV Status: Completed infusion; IV Intake: 250ml kl 19:20 Drug: morphine IVP or IV 2 mg Route: IVP; Infused Over: 4 mins; Site: right forearm; kl 19:59 Follow up: Response: No adverse reaction; Marked relief of symptoms kl 19:28 Drug: Cefepime IVPB 1 grams Route: IVPB; Rate: 200 ml/hr; Infused Over: 30 mins; Site: kl right forearm; 19:59 Follow up: IV Status: Completed infusion; IV Intake: 100ml kl Disposition Summary: 01/27/23 18:13 Hospitalization Ordered Hospitalization Status: Inpatient [facility]mission [facility] Provider: Abran An [facility] Location: Telemetry/MedSur (Inpatient) sk4 Condition: Stable sk4 Problem: new sk4 Symptoms: are unchanged sk4 Bed/Room Type: Standard 4 Room Assignment: 224(01/27/23 19:29) Diagnosis - Osteomyelitis sk4 - Tenosynovitis sk4 Forms: - Medication Reconciliation Form sk4 - SBAR form sk4 Signatures: Dispatcher [employer] Kim Gilbert RN RN kl Calderon, Audri, RN RN aa5 Simon Bolaños, NILE-C NILE-Padmini Sltaer RN RN Denise Obando RN RN Regine Dhillon sk4 Corrections: (The following items were deleted from the chart) 19:29 18:13 sk4 cg
[2023-01-27] MEDS ORDERED: MORPHINE 2 MG/ML SYR ONE (19:25)
[2023-01-27] MEDS ORDERED: NA CHLORIDE 0.9% 100 ML ONE (19:26)
[2023-01-27] MEDS ORDERED: CEFEPIME 1 GM/VIAL ONE (19:27)
[2023-01-27 20:29] VITALS: BMI 29.3
[2023-01-27] MEDS ORDERED: VANCOMYCIN 1 GM in NA CHLORIDE 0.9% 250 ML IVPB SCH (20:31)
--- NOTE | 2023-01-27 20:43 | P.HP ---
Certification for Inpatient Patient admitted to: Inpatient With expected LOS: >2 Midnights Patient will require the following post-hospital care: None Practitioner: I am a practitioner with admitting privileges, knowledge of patient current condition, hospital course, and medical plan of care. Services: Services provided to patient in accordance with Admission requirements found in Title 42 Section 412.3 of the Code of Federal Regulations Patient History Date of Service: 01/27/23 Reason for admission: Flexor tenosynovitis/osteomyelitis History of Present Illness: 67-year-old female with history of hypertension, diabetes mellitus type 2, hyperlipidemia, hypothyroidism, CAD, ESRD on HD MWF presents emergency department with chief complaint of concern for infection of her left third finger. She reports that she has been following up with Dr. Peterson for management of a wound to her left finger for the past couple of months, she denies when she woke up this morning that her finger looked much worse with significant erythema, swelling, pain and tenderness. She was evaluated in the emergency department her labs were significant for leukocytosis white blood cell count 20.0 hemoglobin 8.2 hematocrit 25.4 sodium 131 potassium 3.2 creatinine 4.26 GFR 11 glucose 302 lactic acid 1.9 x-ray of the left hand showed cortical irregularity distal aspect of the third distal phalanx presumably osteomyelitis. Prior amputation can also have this appearance that should be correlated clinically. Patient has not had an amputation previously. ED physician discussed case with Dr. Hayes who will see the patient in the morning. Allergies codeine Allergy (Intermediate, Verified 08/04/22 13:31) Itching promethazine [From Phenergan] Allergy (Intermediate, Verified 08/04/22 13:31) Itching adhesive tape Adverse Reaction (Verified 08/04/22 13:31) Itching/Hives/Rash Home Medications: Atorvastatin Calcium [Lipitor] 40 mg PO BEDTIME 11/17/19 Furosemide 80 mg PO DAILY 09/03/20 Lisinopril [Zestril] 5 mg PO DAILY 09/03/20 Loratadine [Claritin*] 10 mg PO DAILY 09/03/20 Pantoprazole [Protonix Tab*] 40 mg PO BIDAC 30 Days #60 tab 10/20/21 Buspirone HCl [Buspar*] 5 mg PO BID 06/11/22 Levothyroxine Sodium 150 mcg PO DAILY 06/11/22 Metoprolol Succinate [Toprol Xl*] 12.5 mg PO BID 6AM 6PM tab 06/21/22 Aspirin [Aspirin EC 81 MG] 1 tab PO DAILY 08/12/22 Cholecalciferol (Vitamin D3) [Vitamin D 1000 Iu Tab*] 1 cap PO DAILY 08/12/22 Midodrine HCl 5 mg PO PRN 08/27/22 buPROPion HCL [Bupropion HCl Sr] 150 mg PO DAILY 08/27/22 calcitrioL [Rocaltrol] 0.25 mcg PO DAILY 08/27/22 Clopidogrel Bisulfate [Plavix*] 75 mg PO DAILY #30 tab 09/16/22 Cyclobenzaprine [Flexeril*] 10 mg PO TID PRN #30 tab 09/16/22 Docusate [Colace Cap*] 100 mg PO BID #60 cap 09/16/22 Ensure Max Protein 330 ml PO BID #60 can 09/16/22 Hydrocodone 7.5/APAP 325 [Davis 7.5/325 mg*] 1 tab PO Q6HP PRN #30 tab 09/16/22 Collagenase [Santyl Ointment*] 1 appl TOP DAILY #1 tube 10/26/22 Epoetin [Retacrit] 10,000 unit IV EVERY HD vial 10/26/22 Thiamine HCl [Vitamin B-1*] 200 mg PO BID #60 tab 10/26/22 Ensure High Protein 237 ml PO BID #60 can 11/24/22 - Past Medical/Surgical History Has patient received pneumonia vaccine in the past: Yes Diabetic: Yes -: IDDM -: Hypertension -: Hypothyroidism -: ESRD HD MWF -: hyperlipidemia -: depression -: Paralyzed Stomach -: Neuropathy -: CAD -: Back fusion -: bilateral total knee replacements -: bilateral carpal tunnel sx -: c section -: thyroidectomy -: neck fusion -: PD Cath then removed -: Cholecystectomy Psychosocial/ Personal History: Patient lives at [facility]. - Family History Mother -: Heart disease, Hypertension, Lung disease, Cancer Notes: breast ca Father -: Heart disease, Hypertension, Other (see notes) Notes: Alzheimer's - Social History Smoking Status: Former smoker Alcohol use: No CD- Drugs: No Caffeine use: Yes Place of Residence: Home Review of Systems 10-point ROS is otherwise unremarkable Musculoskeletal: Other (Left third finger pain/swelling) Physical Examination - Vital Signs Temperature: 100.7 F Blood Pressure: 109/56 Pulse: 95 Respirations: 24 - Physical Exam General: Alert, In no apparent distress, Oriented x3 HEENT: Atraumatic, PERRLA, Mucous membr. moist/pink, EOMI, Sclerae nonicteric Neck: Supple, 2+ carotid pulse no bruit, No LAD, Without JVD or thyroid abnormality Respiratory: Clear to auscultation bilaterally, Normal air movement Cardiovascular: Regular rate/rhythm, Normal S1 S2 Gastrointestinal: Normal bowel sounds, No tenderness Musculoskeletal: No tenderness Integumentary: Erythema (Left third digit distally with erythema, circumferential swelling, held in passive flexion, pain to palpation) Neurological: Normal speech, Normal strength at 5/5 x4 extr, Normal tone, Normal affect Lymphatics: No axilla or inguinal lymphadenopathy - Studies Laboratory Data (last 24 hrs) 01/27/23 16:26: Sodium 131 L, Potassium 3.2 L, BUN 42 H, Creatinine 4.26 H, Glucose 302 H, Total Bilirubin 0.8, AST 12 L, ALT 12 L, Alkaline Phosphatase 165 H 01/27/23 16:26: WBC 20.00 H, Hgb 8.2 L, Hct 25.4 L, Plt Count 252 Assessment and Plan - Plan Assessment: Sepsis secondary to left third digit flexor tenosynovitis/suspected osteomyelitis Diabetes mellitus type 2insulin-dependent with hyperglycemia ESRD on HD MWF Hypertension Hyperlipidemia CAD with previous stents Plan: Sepsis secondary to left third digit flexor tenosynovitis/suspected osteomyelitis Blood cultures obtained in the emergency department initial lactate less than 2 no hypotension. Continue broad-spectrum emetics vancomycin/cefepime. Hand surgery to see patient in the morning, n.p.o. after midnight. Diabetes mellitus type 2insulin-dependent with hyperglycemia ACHS Accu-Chek, sliding scale insulin. A1c in the morning. ESRD on HD MWF Nephrology consult. Hypertension Hyperlipidemia CAD with previous stents Continue home meds. DVT PPX: SCD Code status: Full Discharge Plan: Home Plan to discharge in: Greater than 2 days - Advance Directives Does patient have a Living Will: Yes Does patient have a Durable POA for Healthcare: Yes - Code Status/Comfort Care Code Status Assessed: Yes (Full code) Critical Care: No Time Spent Managing Pts Care (In Minutes): 70
[2023-01-27] MEDS: INSULIN -REGULAR HUMAN 50 UNIT/0.5 ML ML SQ SCH (21:44)
[2023-01-27] MEDS ORDERED: VANCOMYCIN 500 MG/VIAL ONE (22:33)
[2023-01-27] MEDS ORDERED: VANCOMYCIN 750 MG in NA CHLORIDE 0.9% 250 ML IVPB ONE (23:00)
[2023-01-28] MEDS: MORPHINE 2 MG/ML SYR IV PRN ×3 (00:33→20:16)
[2023-01-28 06:59] LABS: Absolute Lymphocytes (CBC) 0.6 K/uL (0.7-4.9); Hematocrit 25.7 % (36.0-45.0); Lymphocytes % 3.5 % (15.3-44.8); MCV 88.9 fL (80-100); MPV 6.6 fL (7.6-11.3); RBC Red Blood Cell Count 2.89 M/uL (3.86-4.86)
[2023-01-28 07:25] LABS: Potassium 3.2 mEq/L (3.5-5.1)
[2023-01-28] MEDS: INSULIN -REGULAR HUMAN 50 UNIT/0.5 ML ML SQ SCH ×4 (07:30→20:18)
[2023-01-28] MEDS ORDERED: MIDAZOLAM HCL 2 MG/2 ML INJ ONE (07:34)
[2023-01-28] MEDS ORDERED: propofoL 200 MG/20 ML VIAL IV ONE (07:34)
[2023-01-28] MEDS ORDERED: ONDANSETRON 4 MG/2 ML VIAL ONE (07:35)
[2023-01-28] MEDS ORDERED: FENTANYL CITR 100 MCG/2 ML ONE (07:35)
[2023-01-28] MEDS ORDERED: NA CHLORIDE 0.9% 500 ML ONE (07:35)
[2023-01-28] MEDS ORDERED: LIDOCAINE 1% MPF 5 ML VIAL ONE (07:35)
[2023-01-28] MEDS ORDERED: dexAMETHasone 10 MG/ML VIAL ONE (07:36)
[2023-01-28] MEDS ORDERED: Phenylephrine HCl 10 MG/ML 1 ML VIAL ONE (08:33)
[2023-01-28] MEDS ORDERED: SILVER SULFADIAZINE 1% 25 GM TOP ONE (08:36)
[2023-01-28] MEDS ORDERED: MEPERIDINE HCL 50 MG/ML IM PRN (08:57)
--- NOTE | 2023-01-28 10:30 | OP ---
Surgeon: Norman Hayes MD Preoperative Diagnosis: Gangrene of the left little finger. Postoperative Diagnosis: Gangrene of the left little finger. Procedure: Open amputation of the left little finger at the proximal phalanx level. Anesthesia: General. Procedure In Detail: After satisfactory induction of general anesthesia, the left hand prepped with Betadine scrub and Betadine paint. Dry sterile drapes were applied in the usual manner. The hand was placed on the roll lock table. A Chivo drain was used As a tourniquit incision was made over the PIP joint and extensively taken down to the bone where the skin was incised and then the bone was cut with the bone saw. Edges were filed with file, wound jet lavaged, irrigated with 3 L of dilute solution. Prior to this, cultures were taken. Tourniquet was removed and electrocautery was used for hemostasis. Wound was packed with Silvadene cream, quarter-inch Nu Gauze, 2-inch Celia and Kerlix. The patient tolerated the procedure well and returned to recovery. GABRIEL/RENÉ Voice ID: [id number] Report ID: [id number] ASHOK
[2023-01-28] MEDS ORDERED: VANCOMYCIN 1 GM in NA CHLORIDE 0.9% 250 ML IVPB SCH (14:00)
[2023-01-28] MEDS: ACETAMINOPHEN 500 MG TAB PO PRN (16:41)
--- NOTE | 2023-01-28 18:45 | P.PN ---
Subjective Date of Service: 01/28/23 Chief Complaint: Flexor tenosynovitis/osteomyelitis She underwent amputation of her left distal phalanx earlier today with Dr. Haeys. She tolerated the procedure well. She states that her pain is well controlled. She denies any chest pain, palpitations, or shortness of breath. Review of Systems 10-point ROS is otherwise unremarkable Musculoskeletal: Hand Pain (left) Physical Examination - Vital Signs Temperature: 98.1 F Blood Pressure: 118/56 Pulse: 84 Respirations: 14 Pulse Ox (%): 96 Assessment And Plan - Plan - Physical Exam General: Alert, In no apparent distress, Oriented x3 HEENT: Atraumatic, Mucous membr. moist/pink, Sclerae nonicteric Neck: JVD not distended Respiratory: Clear to auscultation bilaterally. No wheezes or rhonchi. Cardiovascular: Regular rate/rhythm, No murmurs, Edema (1+ BLE) Gastrointestinal: Normal bowel sounds, Soft, Non-distended, No tenderness Musculoskeletal: No clubbing, left hand wrapped in clean dressing Integumentary: Pressure ulcer (bilateral heels covered in clean dressing/SUJIT wrap) Neurological: Normal speech, Normal affect # Sepsis likely secondary to Left Third Distal Phalanx Osteomyelitis She met SIRS criteria based on HR > 90 bpm, RR > 20 breaths/min, WBC > 12,000 and the suspected source is osteomyelitis. - Left hand x-ray = "cortical irregularity distal aspect of third distal phalanx presumably osteomyelitis. Prior amputation can also have this appearance and should be correlated clinically. No dislocation" - Hand Surgery consulted - recommendations appreciated - S/P amputation earlier today - Sepsis order set was initiated - Initial Lactate was 1.9, trend - Blood cultures drawn before antibiotics were given - Broad spectrum antibiotics started: vancomycin + cefepime - In regards to fluids: - 30 mL/kg of IV fluids was not administered given SBP > 90, MAP > 65, lactic acid < 4 # End-Stage Renal Disease on MWF iHD # Anemia of Chronic Kidney Disease - Consult Nephrology and spoke with Dr. Flores - recommendations appreciated # Chronic Diabetic/Pressure Heel Ulcer s/p Debridement - Wound care # Coronary Artery Disease s/p PCI (08/11/2022) # Chronic Compensated Diastolic Congestive Heart Failure with Preserved Ejection Fraction # Pulmonary Hypertension # Hypertension # Hyperlipidemia - Reconcile home medications once verified # Hyperglycemia in Type II Diabetes Mellitus - Correction scale insulin # Hypothyroidism - Reconcile home medications once verified Abran An M.D.
--- NOTE | 2023-01-28 19:18 | RAD REPORT ---
EXAM DESCRIPTION: RAD - Shoulder Right 2 View - 01/28/2023 7:05 pm CLINICAL HISTORY: pain COMPARISON: Shoulder Right 2 View dated 10/09/2022 FINDINGS/IMPRESSION: No acute fracture. The humeral head remains inferiorly subluxed which is unchan ged. Right glenohumeral joint degenerative changes. Mild right AC joint degenerative changes . Right IJ approach dialysis catheter.
[2023-01-28] MEDS: CEFEPIME 1 GM in NA CHLORIDE 0.9% 100 ML IV SCH (20:17)
--- NOTE | 2023-01-28 20:45 | P.PN ---
Date of Service: 01/29/23 Subjective: ROS: 10 point ROS as noted above, otherwise negative Physical Exam: Gen: Alert,oriented, NAD HEENT: normal conjunctiva, sclera anicteric CV: regular rate & rhythm, 1+ BLE edema Pulm: non-labored respirations on room air, clear bilaterally Abd: soft, non-tender, non-distended MSK: left hand with dressing c/d/i Integumentary: Pressure ulcer (bilateral heels with dressing in place) Neuro: normal speech, normal affect, moves all extremities Problem List: 1. Sepsis likely secondary to Left Third Distal Phalanx Osteomyelitis now S/P amputation (01/28) 2. End-Stage Renal Disease on MWF iHD 3. Anemia of Chronic Kidney Disease 4. Chronic Diabetic/Pressure Heel Ulcer s/p Debridement 5. Coronary Artery Disease s/p PCI (08/11/2022) 6. Chronic Compensated Diastolic Congestive Heart Failure with Preserved Ejection Fraction 7. Pulmonary Hypertension 8. Hypertension 9. Hyperlipidemia 10. Hyperglycemia in Type II Diabetes Mellitus 11. Hypothyroidism PLAN Left hand x-ray (01/27): cortical irregularity distal aspect of third distal phalanx presumably osteomyelitis. Prior amputation can also have this appearance and should be correlated clinically. No dislocation -Hand Surgery consulted S/P amputation (01/28) Blood cultures: NGTD Continue empiric vancomycin and cefepime (01/28-) Nephrology consulted Continue Silvadene PRN pain medication Confirm home medications, restart as appropriate
[2023-01-28] MEDS ORDERED: DIPHENHYDRAMINE 25 MG TAB/CAP PO ONE (22:17)
--- NOTE | 2023-01-29 01:27 | CON ---
Date of Consultation: 01/28/2023 Chief Complaint: End-stage renal disease. History Of Present Illness: The patient came to this hospital because of fever and infection of her left third finger. The patient is admitted for flexor tendon synovitis and osteomyelitis. She is a 67-year-old woman with history of hypertension, diabetes mellitus type 2, hyperlipidemia, peripheral vascular disease, coronary artery disease, and end-stage renal disease, on hemodialysis Sunday, , Sunday. She presented to the emergency department with a chief complaint of concern for infect ion of her left third finger. She denies headache or vision changes. She has low-grade fever. She was evaluated in the emergency room and her lab work revealed severe leukocytosis. WBC was 20,000, h emoglobin 8.2. Sodium 131, potassium 3.2, glucose 302. Lactic acid 1.9. The patient underwent surg eboni today. Review of Systems: General: Today, she denies fever or chills. Eyes: Denies vision changes. Ears, Nose, Mouth, and Throat: Denies sore throat or earache. Respiratory: Denies PND or orthopnea. Cardiovascular: Denies chest pain, palpitation, or syncope. All other systems reviewed and all are negative. Past Medical History: IDDM; hypertension; hypothyroidism; end-stage renal disease, on hemodialysis , Sunday, Sunday; hyperlipidemia; depression; neuropathy; coronary artery disease; back fusio n; ; thyroidectomy; neck fusion; cholecystectomy; PD catheter removal and placement. Family History: Mother with heart disease, hypertension, lung disease, and breast cancer. Father wi th heart disease, hypertension, and Alzheimer's dementia. Social History: Former smoker. Denies alcohol. Denies drugs. Physical Examination: General: The patient is awake and alert, follows commands. Eyes: Anicteric sclerae. EOMI. Ears, Nose, Mouth, and Throat: Oral mucosa moist. No pallor. Neck: Supple. No bruits. Lungs: Diminished breath sounds at bases. Heart: S1, S2. Abdomen: Soft, benign. Extremities: Dressing in the left hand present. Skin: Warm and dry. Laboratory Work: Potassium 3.2, sodium 131, BUN 42, creatinine 4.26, glucose 302. WBC 20,000, hemog lobin 8.2, platelet count 252,000. Impression And Plan: 1.The patient is admitted to the hospital because of sepsis secondary to left third digit flexor ten don synovitis; suspected osteomyelitis; diabetes mellitus type 2; end-stage renal disease, on hemodia lysis; coronary artery disease with previous stent; hypertension; anemia; chronic kidney disease; asya al osteodystrophy. Plan is to continue antibiotic. 2.Diabetes mellitus. Continue insulin. 3.End-stage renal disease. Continue dialysis. Next dialysis tomorrow. 4.Hyponatremia. Hyponatremia secondary to hyperglycemia. Although, there is some fluid overload. The patient will have dialysis and ultrafiltration will be done tomorrow with dialysis. 5.Hypokalemia. Adjust intake and continue to adjust dialysate. EB/MODL Voice ID: [id number] Report ID: [id number]
[2023-01-29 03:36] LABS: Absolute Lymphocytes (CBC) 0.5 K/uL (0.7-4.9); Hematocrit 25.6 % (36.0-45.0); Lymphocytes % 3.5 % (15.3-44.8); MCV 88.7 fL (80-100); MPV 7.1 fL (7.6-11.3); RBC Red Blood Cell Count 2.88 M/uL (3.86-4.86)
[2023-01-29 04:28] LABS: Potassium 4.3 mEq/L (3.5-5.1)
[2023-01-29] MEDS: SILVER SULFADIAZINE 1% 50 GM TOP SCH ×2 (09:00→22:42)
[2023-01-29] MEDS: INSULIN -REGULAR HUMAN 50 UNIT/0.5 ML ML SQ SCH ×4 (09:45→22:42)
--- NOTE | 2023-01-29 10:24 | DS ---
Patient's hand is doing well. She had some bleeding yesterday. plan debridement and closure of finger tomorrow. GABRIEL/RENÉ Voice ID: [id number] Report ID: [id number] MTDD
--- NOTE | 2023-01-29 10:39 | HP ---
Date of Admission: 01/27/2023 History Of Present Illness: The patient is a 67-year-old white female right- hand dominant with infection of the left little finger treated with vancomycin. I have seen in the past into the office . Past Medical History: She has history of diabetes, myocardial infarction , renal failure. She is on dialysis. Surgery gallbladder, knee replacement allergic to codeine. She is on multiple medications see list. She has a gangrene of the left little fingertip with swelling and erythema at the MCP. Assessment: Gangrene finger Plan: Open tip amputation. GABRIEL/MODEvaristo Voice ID: [id number] MTDD
[2023-01-29 13:39] LABS: Hepatitis B surface AG Interp. Nonreactive (Nonreactive)
[2023-01-29] MEDS ORDERED: DIPHENHYDRAMINE 25 MG TAB/CAP PO ONE (14:55)
--- NOTE | 2023-01-29 16:33 | RAD REPORT ---
EXAM DESCRIPTION: RAD - Knee Right 2 View - 01/29/2023 4:21 pm CLINICAL HISTORY: pain COMPARISON: No comparisons FINDINGS/IMPRESSION: Status post right total knee arthroplasty. A knee effusion is present. This is nonspecific. No evidence of hardware complications. No fractures. Peripheral vascular calcifications.
[2023-01-29] MEDS ORDERED: VANCOMYCIN 1 GM in NA CHLORIDE 0.9% 250 ML IVPB SCH (17:00)
[2023-01-29] MEDS: ACETAMINOPHEN 500 MG TAB PO PRN (17:05)
[2023-01-29] MEDS: CEFEPIME 1 GM in NA CHLORIDE 0.9% 100 ML IV SCH (22:42)
[2023-01-29] MEDS: MORPHINE 2 MG/ML SYR IV PRN (22:45)
--- NOTE | 2023-01-30 01:48 | PN ---
Date of Progress Note: 01/29/2023 Chief Complaint: End stage renal disease, on hemodialysis. History Of Present Illness: The patient came to the hospital because of fever and infection of the l eft third finger. The patient was admitted for flexor tendon synovitis and osteomyelitis. She is 67 -year-old woman with history of hypertension, diabetes mellitus type 2, hyperlipidemia, peripheral va scular disease, coronary artery disease, end-stage renal disease, on hemodialysis Sunday, Sunday, Sunday. She was evaluated in the ER. She had low-grade fever and leukocytosis was up to 20,000, hem oglobin 8.2, glucose 302, sodium 131, lactic acid 1.9. Review of Systems: Denies chest pain, palpitation. Physical Examination: Lungs: Clear to auscultation bilaterally. Heart: S1-S2. Abdomen: Soft, benign. Extremities: Dressing in place. Impression: End-stage renal disease. Dialysis was done today with ultrafiltration for metabolic ivan arance and to control volemia. The patient tolerated procedure very well. The patient will continue dialysis on Sunday, Sunday, Sunday. Plan: 1.Patient has osteomyelitis of the left third digital flexor tenosynovitis and suspected osteomyelit is. Continue antibiotics. 2.Hyponatremia secondary to hyperglycemia, although there is some fluid overload, as the patient antoni l have dialysis with ultrafiltration. Monitor blood pressure during dialysis to prevent antibiotic h ypotension. 3.Hypokalemia. Adjust intake and continue to adjust dialysis prescription to treat hypokalemia. 4.Anemia and chronic kidney disease. Monitor hemoglobin level and continue XENIA according to lab res ults. EB/MODL Voice ID: [id number] Report ID: [id number]
[2023-01-30 03:23] LABS: Absolute Lymphocytes (CBC) 1.2 K/uL (0.7-4.9); Lymphocytes % 10.3 % (15.3-44.8); MCV 88.9 fL (80-100); MPV 6.7 fL (7.6-11.3); RBC Red Blood Cell Count 2.82 M/uL (3.86-4.86)
[2023-01-30 03:39] LABS: Potassium 3.5 mEq/L (3.5-5.1)
[2023-01-30] MEDS: INSULIN -REGULAR HUMAN 50 UNIT/0.5 ML ML SQ SCH ×4 (07:30→20:45)
[2023-01-30] MEDS ORDERED: NA CHLORIDE 0.9% 250 ML ONE (07:56)
[2023-01-30] MEDS: SILVER SULFADIAZINE 1% 50 GM TOP SCH ×2 (08:37→20:47)
[2023-01-30] MEDS ORDERED: FENTANYL CITR 100 MCG/2 ML ONE (08:50)
[2023-01-30] MEDS ORDERED: MIDAZOLAM HCL 2 MG/2 ML INJ ONE (08:50)
[2023-01-30] MEDS ORDERED: LIDOCAINE 2% MPF 5 ML VIAL ONE (08:50)
[2023-01-30] MEDS ORDERED: propofoL 200 MG/20 ML VIAL IV ONE ×2 (08:50→11:01)
[2023-01-30] MEDS ORDERED: ONDANSETRON 4 MG/2 ML VIAL ONE (08:51)
[2023-01-30] MEDS ORDERED: NA CHLORIDE 0.9% 500 ML ONE (08:51)
[2023-01-30] MEDS ORDERED: SILVER SULFADIAZINE 1% 25 GM TOP ONE (09:54)
[2023-01-30] MEDS ORDERED: EPHEDRINE SULF 50 MG/ML VIAL ONE (10:03)
[2023-01-30] MEDS: HYDROMORPHONE HCL 1 MG/ML INJ ONE ×5 (10:04→10:39)
--- NOTE | 2023-01-30 10:29 | OP ---
Surgeon: Norman Hayes MD Preoperative Diagnosis: Open wound of the left middle finger. Postoperative Diagnosis: Open wound of the left middle finger. Procedure: Incision at the metacarpophalangeal joint and carpal tunnel release, debridement of the s kin and subcutaneous tissues. Anesthesia: General. Procedure In Detail: After satisfactory induction of general anesthesia, left hand was prepped with Betadine scrub and Betadine paint. Dry sterile drapes were applied in the usual manner. The hand wa s placed on the roll lock table. The scalpel was used to excise the skin and repair of infected blee ding at the metacarpophalangeal joint level and the proximal skin incision was made volarly. Pus was encountered at the A1 des area. Carpal tunnel release was done to the exposure to the floor. Th ere was no pus proximal at the carpal tunnel level. The wound culture was taken. The wound was jet lavaged and irrigated with 3 L dilute solution. Electrocautery was used for hemostasis. Wound was p acked with quarter-inch Nu Gauze soaked in Silvadene cream and Kerlix. The patient tolerated the pro cedure well and returned to recovery. GABRIEL/RENÉ Voice ID: [id number] Report ID: [id number]
[2023-01-30] MEDS ORDERED: EPINEPHRINE INH 0.5 ML VIAL IH ONE (10:40)
[2023-01-30] MEDS: MORPHINE 4 MG/ML SYR ONE ×2 (11:01→11:06)
[2023-01-30] MEDS ORDERED: ALBUTEROL 2.5 MG/3 ML NEB SOL ONE (11:01)
[2023-01-30] MEDS ORDERED: SUCCINYLCHOLINE 20 MG/ML (10 ML) IV ONE (11:04)
[2023-01-30] MEDS ORDERED: dexAMETHasone 10 MG/ML VIAL ONE (11:14)
--- NOTE | 2023-01-30 11:26 | RAD REPORT ---
EXAM DESCRIPTION: RAD - Chest Single View - 01/30/2023 10:52 am CLINICAL HISTORY: S/P ARTHUR CLOSURE OF HAND COMPARISON: Chest Single View dated 11/22/2022; Chest Single View dated 11/21/2022; Chest Single View dated 10/12/2022; Chest Single View dated 09/03/2022 FINDINGS: Lines: Right IJ approach dialysis catheter. Lungs: Diffuse prominence of the pulmonary interstitium . Pleural: No significant pleural effusions or pneumothorax. Cardiac: Cardiomegaly. Mediastinum: Within normal limits. Bones: No acute fractures. Other: None IMPRESSION: Similar diffuse prominence of the pulmonary interstitium likely reflecting edema. No new acute process identified.
[2023-01-30] MEDS: ACETAMINOPHEN 500 MG TAB PO PRN (13:37)
[2023-01-30] MEDS: MORPHINE 2 MG/ML SYR IV PRN ×2 (15:17→20:46)
--- NOTE | 2023-01-30 15:53 | P.PN ---
Subjective Date of Service: 01/30/23 Chief Complaint: Flexor tenosynovitis/osteomyelitis Subjective: Other (she received HD yesterday) Physical Examination - Vital Signs Temperature: 97.4 F Blood Pressure: 102/56 Pulse: 81 Respirations: 16 Pulse Ox (%): 100 - Physical Exam General: Other (chronically ill-appearing) HEENT: Atraumatic, Normocephalic Neck: Supple Respiratory: Other (symmetric chest expansion) Cardiovascular: No rubs, No murmurs Gastrointestinal: Soft and benign, No guarding Musculoskeletal: No clubbing Integumentary: No warmth Neurological: Normal tone Urinary: Other (no bladder distention) External genitalia: Deferred Rectal: Deferred - Studies Microbiology Data (last 24 hrs): 01/27/23 16:47 Blood - Blood Gram Stain - Final Assessment And Plan - Plan 1. End-stage renal disease. Ht received yesterday. Next HD tomorrow, continue MWF schedule. 2. Sepsis due to left third distal phalanx osteomyelitis. Status post phalanx amputation on 01/28. Per other services. 3. CAD s/pPCI, chronic diastolic heart failure, pulmonary hypertension. Continue cardioprudent medications. HD as above. 4. Htn. Cont current med regimen. 5. Anemia. Monitor CBC. 6. Renal osteodystrophy. Monitor serum Ca & Phos. 7. DM2. Mngt per primary team. 8. Hypothyroidism. Levothyroxine.
[2023-01-30] MEDS: CEFEPIME 1 GM in NA CHLORIDE 0.9% 100 ML IV SCH (20:46)
[2023-01-30] MEDS: AMINO ACIDS/PROTEIN HYDROLYS 30 ML LIQUID.PKT PO SCH (21:27)
[2023-01-31] MEDS: MORPHINE 2 MG/ML SYR IV PRN ×4 (01:14→20:12)
[2023-01-31] MEDS: INSULIN -REGULAR HUMAN 50 UNIT/0.5 ML ML SQ SCH ×4 (07:30→21:00)
[2023-01-31] MEDS: AMINO ACIDS/PROTEIN HYDROLYS 30 ML LIQUID.PKT PO SCH ×2 (09:00→21:00)
[2023-01-31] MEDS: SILVER SULFADIAZINE 1% 50 GM TOP SCH ×2 (09:06→22:33)
--- NOTE | 2023-01-31 15:47 | P.PN ---
Subjective Date of Service: 01/31/23 Chief Complaint: Flexor tenosynovitis/osteomyelitis Subjective: Other (no new complaints.) Physical Examination - Vital Signs Temperature: 97.3 F Blood Pressure: 142/73 Pulse: 68 Respirations: 16 Pulse Ox (%): 100 - Physical Exam General: Other (chronically ill-appearing) HEENT: Atraumatic, Normocephalic Neck: Supple Respiratory: Other (symmetric chest expansion) Cardiovascular: No rubs, No murmurs Gastrointestinal: Soft and benign, No rebound Musculoskeletal: No clubbing Integumentary: No warmth Neurological: Normal tone Urinary: Other (no bladder distention) External genitalia: Deferred Rectal: Deferred - Studies Microbiology Data (last 24 hrs): 01/27/23 16:47 Blood - Blood Anaerobic Blood Culture - Final Staph Aureus 01/27/23 16:47 Blood - Blood Gram Stain - Final Assessment And Plan - Plan 1. End-stage renal disease. Ht received on Sunday. Next HD tomorrow, then resume MWF schedule. 2. Sepsis due to left third distal phalanx osteomyelitis. Status post phalanx amputation on 01/28. Per other services. 3. CAD s/pPCI, chronic diastolic heart failure, pulmonary hypertension. Continue cardioprudent medications. HD as above. 4. Htn. Cont current med regimen. 5. Anemia. Monitor CBC. 6. Renal osteodystrophy. Monitor serum Ca & Phos. 7. DM2. Mngt per primary team. 8. Hypothyroidism. Levothyroxine.
--- NOTE | 2023-01-31 17:14 | PN ---
The dressing is changed today. The wound is clean with no purulent drainage. No surrounding celluli tis. No pain. Silvadene cream is applied, dressing changes b.i.d., surgery tomorrow is debridement and closure. N.p.o. at midnight. JENNIFER Voice ID: [id number] Report ID: [id number]
[2023-02-01] MEDS ORDERED: MEPERIDINE HCL 25 MG/ML SYR ONE (01:15)
[2023-02-01] MEDS: INSULIN -REGULAR HUMAN 50 UNIT/0.5 ML ML SQ SCH ×4 (07:30→20:34)
[2023-02-01] MEDS ORDERED: NA CHLORIDE 0.9% 500 ML ONE (08:20)
[2023-02-01] MEDS ORDERED: HYDROMORPHONE HCL 1 MG/ML INJ ONE (08:46)
[2023-02-01] MEDS: AMINO ACIDS/PROTEIN HYDROLYS 30 ML LIQUID.PKT PO SCH ×2 (09:00→21:00)
[2023-02-01] MEDS: SILVER SULFADIAZINE 1% 50 GM TOP SCH ×2 (09:00→21:00)
[2023-02-01] MEDS ORDERED: ONDANSETRON 4 MG/2 ML VIAL ONE (09:13)
[2023-02-01] MEDS ORDERED: FENTANYL CITR 100 MCG/2 ML ONE (09:13)
[2023-02-01] MEDS ORDERED: propofoL 200 MG/20 ML VIAL IV ONE (09:13)
[2023-02-01] MEDS ORDERED: MIDAZOLAM HCL 2 MG/2 ML INJ ONE (09:13)
[2023-02-01] MEDS ORDERED: LIDOCAINE 2% MPF 5 ML VIAL ONE (09:14)
[2023-02-01] MEDS ORDERED: EPHEDRINE SULF 50 MG/ML VIAL ONE (09:50)
[2023-02-01] MEDS: MORPHINE 4 MG/ML SYR ONE ×2 (10:24→10:32)
[2023-02-01 10:51] VITALS: O2SAT 100
[2023-02-01] MEDS ORDERED: MORPHINE 4 MG/ML SYR ONE (10:52)
--- NOTE | 2023-02-01 12:27 | OP ---
Surgeon: Norman Hayes MD Preoperative Diagnosis: Open wound of the left hand. Postoperative Diagnosis: Open wound of the left hand. Procedure Performed: Skin and subcutaneous tissue, simple closure 12 cm and flap closure of the hand. Anesthesia: General. Procedure In Detail: After satisfactory induction of general anesthesia, the left hand was prepped w ith Betadine scrub and Betadine paint. Dry sterile drapes were applied in the usual manner. Hand wa s placed on the roll lock table. A curette, tenotomy scissors, and forceps were used to debride skin and subcutaneous tissue as needed. A rongeur was used to remove the articular surface of the metaca rpal head of the middle finger. The wound was jet lavaged, irrigated with 3 L of dilute Betadine madalyn ution. The palmar wound was closed with vertical mattress and simple sutures and the amputation site was closed with flap advancement closure volarly. After this, then dressed with Xeroform, 2-inch Kl ing, and Kerlix. The patient tolerated the procedure well and returned to recovery. GABRIEL/RENÉ Voice ID: [id number] Report ID: [id number]
[2023-02-01] MEDS: MORPHINE 2 MG/ML SYR IV PRN (12:38)
[2023-02-01] MEDS: ONDANSETRON 4 MG/2 ML VIAL IV PRN (13:46)
[2023-02-01] MEDS: HYDROMORPHONE HCL 0.5 MG/0.5 ML INJ IV PRN ×2 (17:52→21:32)
[2023-02-01 18:33] LABS: Potassium 3.9 mEq/L (3.5-5.1)
[2023-02-02] MEDS: ONDANSETRON 4 MG/2 ML VIAL IV PRN (00:29)
--- NOTE | 2023-02-02 01:48 | PN ---
Date of Progress Note: 02/01/2023 Chief Complaint: End stage renal disease, on hemodialysis. History Of Present Illness: The patient is undergoing second-stage surgery today. Closure of the wo und per hand surgeon. The patient presented to the hospital because of fever, erythema, drainage fro m the hand. The patient was found to have flexor tenosynovitis, osteomyelitis and underwent a finger amputation. Review of Systems: Denies chest pain, palpitation. Physical Examination: Lungs: Clear to auscultation bilaterally. Heart: S1-S2. Abdomen: Soft. Extremities: Dressing in place. Impression And Plan: End-stage renal disease. The patient received dialysis yesterday. Monitor dee ctrolytes. Sepsis due to left third distal phalanx osteomyelitis. The patient had phalanx amputation on January 28. Continue antibiotics as per primary team and other service. Coronary artery disease, diastolic congestive heart failure. Continue medication for blood pressure control along with beta susan. Hypertension. Continue current medication. Anemia and chronic kidney disease. Monitor CBC. Renal osteodystrophy. Monitor calcium and phosphorus. EB/MODL Voice ID: [id number] Report ID: [id number]
[2023-02-02] MEDS: HYDROMORPHONE HCL 0.5 MG/0.5 ML INJ IV PRN ×2 (02:12→08:20)
[2023-02-02 06:19] LABS: Absolute Lymphocytes (CBC) 0.9 K/uL (0.7-4.9); Hematocrit 25.2 % (36.0-45.0); Lymphocytes % 9.6 % (15.3-44.8); MCV 88.6 fL (80-100); MPV 6.4 fL (7.6-11.3); RBC Red Blood Cell Count 2.84 M/uL (3.86-4.86)
[2023-02-02 06:32] LABS: Albumin 2.5 g/dL (3.4-5.0); Bilirubin Total 0.4 mg/dL (0.2-1.0); Magnesium 2.2 mg/dL (1.6-2.4); Potassium 3.9 mEq/L (3.5-5.1); Protein, Total 6.8 g/dL (6.4-8.2)
[2023-02-02] MEDS: INSULIN -REGULAR HUMAN 50 UNIT/0.5 ML ML SQ SCH (07:30)
[2023-02-02] MEDS: AMINO ACIDS/PROTEIN HYDROLYS 30 ML LIQUID.PKT PO SCH (08:21)
[2023-02-02] MEDS: SILVER SULFADIAZINE 1% 50 GM TOP SCH (08:21)
[2023-02-02 09:02] VITALS: BP 160/73; TEMP 97.4
[2023-02-02] MEDS ORDERED: VANCOMYCIN 1 GM in NA CHLORIDE 0.9% 250 ML IVPB SCH (18:00)
== END 2023-02-02 11:48 | disposition home health service (06) | DRG 853 ==
LOC: ER 15:09 → ERHOLD 19:04 → 2ND 19:37
PROVIDERS: ADMIT Internal Medicine; ATTEND Hospitalist
PROC: 0X6W0Z1 Detachment at Left Little Finger, High, Open Approach (ICD-10-PCS; principal; 2023-01-28 08:00)
PROC: 5A1D70Z Performance of Urinary Filtration, Intermittent, Less than 6 Hours Per Day (ICD-10-PCS; 2023-01-29)
PROC: 0JBK0ZZ Excision of Left Hand Subcutaneous Tissue and Fascia, Open Approach (ICD-10-PCS; 2023-01-30)
PROC: 01N50ZZ Release Median Nerve, Open Approach (ICD-10-PCS; 2023-01-30)
PROC: 0JXK0ZZ Transfer Left Hand Subcutaneous Tissue and Fascia, Open Approach (ICD-10-PCS; 2023-02-01)
DX: A41.9 Sepsis, unspecified organism (principal); N18.6 End stage renal disease; M86.8X8 Other osteomyelitis, other site; E11.52 Type 2 diabetes mellitus with diabetic peripheral angiopathy with gangrene; I50.32 Chronic diastolic (congestive) heart failure; I13.2 Hypertensive heart and chronic kidney disease with heart failure and with stage 5 chronic kidney disease, or end stage renal disease; E87.1 Hypo-osmolality and hyponatremia; E11.22 Type 2 diabetes mellitus with diabetic chronic kidney disease; E11.69 Type 2 diabetes mellitus with other specified complication; E11.40 Type 2 diabetes mellitus with diabetic neuropathy, unspecified; E11.65 Type 2 diabetes mellitus with hyperglycemia; D63.1 Anemia in chronic kidney disease; E87.6 Hypokalemia; E03.9 Hypothyroidism, unspecified; E78.00 Pure hypercholesterolemia, unspecified; M65.88 Other synovitis and tenosynovitis, other site; M25.511 Pain in right shoulder; N25.0 Renal osteodystrophy; I27.20 Pulmonary hypertension, unspecified; I25.10 Atherosclerotic heart disease of native coronary artery without angina pectoris; I25.2 Old myocardial infarction; Z88.5 Allergy status to narcotic agent; Z99.2 Dependence on renal dialysis; Z88.8 Allergy status to other drugs, medicaments and biological substances; Z79.4 Long term (current) use of insulin; Z95.5 Presence of coronary angioplasty implant and graft; Z79.02 Long term (current) use of antithrombotics/antiplatelets; Z79.82 Long term (current) use of aspirin; Z90.49 Acquired absence of other specified parts of digestive tract; Z87.891 Personal history of nicotine dependence; Z79.899 Other long term (current) drug therapy; Z91.048 Other nonmedicinal substance allergy status; Z96.653 Presence of artificial knee joint, bilateral; Z79.890 Hormone replacement therapy; Z20.822 Contact with and (suspected) exposure to COVID-19
CPT/HCPCS: 36415; 71045; 80048; 80053; 80202; 82947; 83036; 83605; 83735; 85025; 87040; 87070; 87075; 87077; 87186; 87205; 87340; 87811; 88304; 88305; 88311; 90935; 99285; J0692; J1100; J1170; J1644; J1815; J2001; J2175; J2250; J2270; J2371; J2405; J2704; J3010; J7040; J7050; J7613

== ENCOUNTER 2023-03-05 09:57 | Emergency (ER) | payer OTHER ==
--- OUTSIDE RECORDS SUMMARY | 2023-03-05 10:17 | XMS REPORT | Continuity of Care Document ---
:1955 Author Organization [facility] t Address [address] [facility] [address] [place] [id number] Care Team Providers Name Role Phone Graham Johnson MD Primary Care Physician [id number] Attending Clinician Unavailable Dann Hernandez Attending Clinician [...] Unavailable Yvan BURROUGHS, Jory Nguyen Attending Clinician [phone] Mao ARIAS, Corrina To Attending Clinician [phone] Doctor Unassigned, [place] Attending Clinician Unavailable Funmi Allen MA Attending [...] Attending Clinician BO CARTER Attending Clinician Unavailable [id number] Admitting Clinician Unavailable Forest Schmid Admitting Clinician [...] Policy Number Effective Date Expiration Date Juan balderrama SAMI HUMM [id number] [facility] [id number] 2020 MCARE ADV 00:00:00 CHOICE PPO MEDICARE PART A [id number] 2020 \\T\\ B 00:00:00 [employer] MEDICARE 53 [id number] 2021 Common Sp rachelle 00:00:00 - [facility] Problems Condition Condition Condition Status Onset [...] Added automatic ally from request for surgery [id number] ESRD (end ESRD (end Disease Active 2019- Met hodi stage stage 1-05 st renal renal 00:00: Hospita disease) disease) 00 l on on dialysis dialysis [id number] Unsteady Problem Commo n gait Spirit - [facility] Arrhythmia Arrhythmia Problem C ommon Spirit - [facility] [id number] Retinopath Problem Com mon y [facility] - [facility] [id number] Seasonal Problem Comm on allergies Spirit - [facility] [id number] PUD Problem Common (peptic Spirit ulcer - CHI disease) [facility] [id number] Body mass Problem Com mon index Spirit [BMI] - CHI 38.0-38.9, [facility] [id number] Diabetic Problem Comm on polyneurop Spirit athy - CHI associated St with type [facility] 2 diabetes Medica l mellitus Center [id number] Morbid Problem Commo n 9104 (severe) Spirit obesity - CHI due to [facility] [id number] Type 2 Problem Common diabetes Spirit mellitus - CHI with diabetic [facility] chronic Medical kidney Center disease Secondary Secondary Problem Com mon hyperparat hyperparat Sp rachelle hyroidism hyroidism, - C HI not St elsewhere [facility] classified Medica l Center Athscl Athscl Problem Common tolowa dee-ni' tolowa dee-ni' Spirit arteries arteries - CHI of of [facility] extremiti Ely kes s w s w Medical ulceration ulceration Ce nter Non-pressu Non-pressu Problem C ommon re chronic re chronic Sp rachlele ulcer of ulcer of - CHI other part other part St of right of right [facility] foot with foot with Medi jose unspecifie unspecifie Ce nter d severity d severity Chronic Chronic Problem Common congestive diastolic Spi rit heart CHF - CHI failure (congestiv e heart [facility] failure) Medical [place] [id number] Stented Problem Commo n coronary Spirit artery - [facility] [id number] PAD Problem Common (periphera Spirit l artery - CHI disease) [facility] [id number] Coronary Problem Commo n artery Spirit disease - CHI involving [facility] coronary Medical artery of [place] tolowa dee-ni' heart, unspecifie d whether angina present [id number] Oxygen Problem Commo n 07 dependent Spirit - [facility] [id number] Anemia in Problem Com mon chronic Spirit illness - [facility] Allergic Non-season Problem Com mon rhinitis al Spirit allergic - CHI rhinitis, unspecifie [facility] d Medical chronicity Center , unspecifie d trigger Dependence Dialysis Problem Com mon on renal patient Spirit dialysis - [facility] Anxiety Anxiety Problem Common about about [facility] health health [facility] [id number] End stage Problem Comm on renal Spirit disease [facility] Hypothyroi Hypothyroi Problem C ommon dism dism [facility] Indwelling Indwelling Problem C ommon Lemons Lemons [facility] catheter catheter - [facility] present present [facility] Recurrent Risk for Problem Comm on falls falls [facility] [id number] Pressure Problem Com mon 5106 ulcer of [facility] right - [facility], [facility] Cholelithi Gall Problem Commo n asis bladder Spirit without stones - [facility] obstructio [facility] Hypertensi Hypertensi Problem C ommon on on Spirit [facility] Type II Uncontroll Problem Comm on diabetes ed type 2 Spiri t mellitus diabetes - [facility] without mellitus St complicati with [facility] on insulin Medical therapy Center Mixed Mixed Problem Common hyperlipid hyperlipid Sp [facility] emia emia [facility] Gastroesop GERD Problem Commo n hageal (gastroeso Spirit reflux phageal - [facility] disease reflux St disease) [facility] Vitamin D Vitamin D Problem Com mon deficiency deficiency Sp rachelle [facility] Carpal Carpal Problem Resolve 2021-08-25 Mem oria [...] Memoria emia demia 22:23:46 l (disorder) (disorder) Pepe martinezann Active Problem 08/25/2021 [facility] Paresthesi Paresthes [...] 2019-0 Other M ethodi ty to ns 512 reaction( st adverse 00:00: s): Hospita reaction 00 Anaphylax l s to is drug codeine DA Active U 2000- [facility] 08-06 Clear 00:00: [facility] CODEINE DA Active U HALLUCINATIO 2000-07 [facility] N 08-06 Clear 00:00: Hernandez 00 [facility] No Known DA Active U 2000-07 [facility] Contrast 08-06 Clear Allergie 00:00: Hernandez s [facility] No Known DA Active U [...] Univers ALLERGIE Class ity of S [facility] codeine codeine Active Memoria l [place] Phenerga Phenerga Active Memori a n n l [place] Tape Tape Active Memoria l [place] prometha prometha Active Unknown Commo n rhonda noene Spirit - [facility] codeine codeine Active Unknown Common [facility] - [facility] Family History Family Member Diagnosis Comments Start Date Stop Date Source Natural father Heart disease [facility] Natural father Hypertension [facility] Natural father Thrombophlebitis Meth [facility] Natural mother Diabetes [facility] Natural mother Hyperlipidemia [facility] Natural mother Hypertension [facility] Natural mother Kidney disease [facility] Social History Social Habit Start Date Stop Date Quantity Comments Source History of Tobacco Common Spirit - Use [facility] History SDOH University o f Alcohol Std Drinks [place] [facility] History SDOH University o f Alcohol Binge [place] [facility] History SDOH Social Unive rsity of Connections Get [place] Med ical Together Branch History SDOH Social Unive rsity of Connections Rastafari [place] [facility] History SDOH Social Unive rsity of Connections [place] [facility] Membership Branch History SDOH Social Unive rsity of Connections [place] [facility] Meetings Branch Gender identity [facility] Sexual orientation [facility] History [...] University o f Housing Places 00:00:00 00:00:00 [place] Medi jose Lived Branch History SDOH 2022-12-15 2022-12-15 2 University o f Housing Homeless 00:00:00 00:00:00 [place] Me dical Last Year Branch Exposure to 2022-10-25 2022-11-04 Not sure University SARS-CoV-2 (event) 00:00:00 13:19:00 [facility] History of Social 2022-10-09 2022-10-[address] function 00:00:00 00:00:00 Hospital Alcohol intake 2022-04-27 2022-04-27 Current drinker [facility] 00:00:00 00:00:00 of alcohol Hospital (finding) Cigarettes smoked 2022-04-26 2022-04-[address] current ([facility] - [facility] Cigarette 2022-04-26 2022-04-26 [facility] pack-years 00:00:00 00:00:00 Hospital Tobacco use and 2022-04-26 2022-04-26 Smokeless [facility] exposure 00:00:00 00:00:00 tobacco non-user Hospital Social History 2021-02-23 2021-02-23 [facility] 20:24:04 20:24:04 Alcohol Comment 2020-03-23 2020-03-23 RARELY [facility] 00:00:00 00:00:00 Hospital Sex Ass[birth year] At [birth year] [facility] 00:00:00 00:00:00 Medical Center Smoking Status Start Date Stop Date Source Unknown if ever smoked [facility] [place] [facility] Former Smoker 2023-01-10 00:00:00 2023-01-10 00:00:00 Common S pirit - [facility] Medical Ce nter Never smoked tobacco [facility] Medications Ordered Filled Start Stop Current Ordering Indication Dosage Frequency Signature Comments Components Source Medication Medication Date Date Medication? Clinician (SIG) Name Name honey 80 % 2022- Yes [id number] 5mL Apply 5 mL Univers 12-23 to area(s) ity of 00:00: 04:59 every 48 [place] 00 :00 [facility] for 10 days. honey 80 % 2022- Yes [id number] 5mL Apply 5 mL Univers 12-23 to area(s) ity of 00:00: 04:59 every 48 [place] 00 :00 [facility] for 10 days. vancomycin 2022- Yes 15mg/kg 1,250 mg Univers 1,250 mg in 12-22 (rounded ity of NaCl 0.9% 19:00: 06:59 from [place] (NS) 250 mL 00 :00 1,177.5 mg [...] ity of NaCl 0.9% 19:00: 06:59 from [place] (NS) 250 mL 00 :00 1,177.5 mg [...] under the [place] inph 07 skin in [facility] the [place] morning and 30 Units at noon and 30 Units in the evening. Sliding scale Insulin Yes 45U inject 45 Unive rs Glargine 6-16 Units ity of (LANTUS 17:37: under the [place] SOLOSTAR 07 skin in [facility] U-100 [facility] INSULIN) morning 100 unit/mL and 45 (3 mL) Units in injection the evening. buPROPion Yes 150mg Take 1 Unive rs SR 150 mg 6-16 tablet by ity o f SR tablet 17:37: mouth in [place] [facility] the Medical morning. Branch pantoprazol 0 Yes 40mg Take 1 Univ ers e 40 mg EC 6-16 tablet by ity of tablet 17:37: mouth in [place] [id number] the Medical morning. Branch Levothyroxi Yes 150ug Take 150 U nivers ne 100 mcg 6-16 mcg by ity of capsule 17:37: mouth daily. Medical Branch aspirin 81 0 Yes 81mg Take 81 mg U nivers mg Cap 6-16 by mouth ity of 17:37: in the morning. Medical Branch Cholecalcif Yes Take by Uni vers daryl, 6-16 mouth. ity of Vitamin D3, 17:37: [place] 25 mcg 07 Medical (1,000 Branch unit) capsule folic Yes Take by Univers acid/multiv 6-16 mouth ity of it-min/lute 17:37: daily. [place] [facility] in (CENTRUM 07 Medical SILVER Branch ORAL) vitamin 2022-0 Yes 100ug Take 1 Univers B-12 100 6-16 tablet by ity of mcg tablet 17:37: mouth [place] every Medical morning. Branch loratadine Yes Univers 10 mg 6-16 ity of tablet 17:37: [place] [facility] fenofibrate 0 Yes 200mg Take 1 Uni vers micronized 6-16 capsule by ity of 200 mg 17:37: mouth. [place] capsule Medical Branch polyethylen 0 Yes 17g Take 1 Univ ers e glycol 6-16 Packet by ity of 3350 17 17:37: mouth. [place] gram powder Medical Branch insulin 0 Yes 30U inject 30 Unive rs lispro 100 6-16 Units ity of unit/mL 17:37: under the [place] inph 07 skin in Medical the Branch morning and 30 Units at noon and 30 Units in the evening. Sliding scale Insulin 2022-0 Yes 45U inject 45 Unive rs Glargine 6-16 Units ity of (LANTUS 17:37: under the [place] SOLOSTAR 07 skin in [facility] U-100 the Branch INSULIN) morning 100 unit/mL and 45 (3 mL) Units in injection the evening. buPROPion 0 Yes 150mg Take 1 Unive rs SR 150 mg 6-16 tablet by ity o f SR tablet 17:37: mouth in [place] 07 the Medical morning. Branch pantoprazol 0 Yes 40mg Take 1 Univ ers e 40 mg EC 6-16 tablet by ity of tablet 17:37: mouth in [place] 07 the Medical morning. Branch Levothyroxi 0 Yes 150ug Take 150 U nivers ne 100 mcg 6-16 mcg by ity of capsule 17:37: mouth [place] 07 daily. Medical Branch aspirin 81 2022-0 Yes [...] by ity of 200 mg 17:37: mouth. [place] capsule Medical Branch polyethylen 2022-0 Yes 17g Take 1 Univ ers e glycol 6-16 Packet by ity of 3350 17 17:37: mouth. [place] gram powder Medical Branch amLODIPine 2022-0 2022- [...] mg 00 on Fri Medical 12/22/22 at [place] 0800, Until Discontinu ed, Routine ticagrelor 0 Yes 90mg 90 mg, Unive rs (BRILINTA) -16 Oral, BID, ity of tablet 90 13:00: First dose [place] mg 00 on Fri Medical 12/22/22 at [place] 0800, Until Discontinu ed, Routine ticagrelor 2022- Yes [id number] 90mg Take 1 Univers 90 mg 12-22 tablet by ity of tablet 00:00: 04:59 mouth in [place] 00 :00 the Medical morning Branch and 1 tablet in the evening. Do all this for 30 days. amLODIPine 2022- Yes [id number] 5mg Take 1 Univers 5 mg tablet 12-22 tablet by it y of 00:00: 04:59 mouth in [place] 00 :00 the Medical morning Branch for 30 days. ticagrelor 2022-2022- Yes [id number] 90mg Take 1 Univers 90 mg 12-22 tablet by ity of tablet 00:00: 04:59 mouth in [place] 00 :00 the Medical morning Branch and 1 tablet in the evening. Do all this for 30 days. amLODIPine 2022-0 2022- Yes [id number] 5mg Take 1 Univers 5 mg tablet 12-22- tablet by it y of 00:00: 04:59 mouth in [place] 00 :00 the [facility] morning Branch for 30 days. FENTanyl PF [...] ed, Routine, Pain (scale 4-6), PACU ondansetron 3-0 2022- No 4mg 4 mg, Slow Univers (ZOFRAN 6-15 06-16 IV Push, ity of (PF)) 21:51: 18:25 PRN, 1 [place] injection 4 46 :00 dose, Medical mg Starting Branch on [place] 12/21/22 at 1651, Until Discontinu ed, Routine, Nausea and Vomiting (N/V), PACU heparin 2022- No PRN, Univers lock flush 12-21 Starting ity of (HEPARIN 21:22: 21:52 on [facility] LOCKFLUSH(P 00 :17 12/21/22 at Ny dical ORCINE)(PF) 1622, Branch ) 100 Until [place] unit/mL 12/21/22 at injection 1652, Routine, Intra-op bupivacaine 2022- No PRN, Unive rs (preserv 12-21 Starting ity of free) 21:18: 21:52 on [facility] (SENSORCAIN 00 :17 12/21/22 at [place] dicor E MPF) 0.25 1618, Branch % (2.5 Until [place] mg/mL) 12/21/22 at injection 1652, Routine, Intra-op NaCl 0.9% 2022- No PRN, Univers (NS) 12-21 Starting ity of injection 21:17: 21:52 on [facility] 00 :17 12/21/22 at [facility] 1617, Branch Until [place] 12/21/22 at 1652, Routine, Intra-op heparin Yes 2000U PRN - SEE Univ ers 1,000 6-15 INSTRUCTIO ity of unit/mL 16:04: NS, [place] injection 44 Starting Medica l 2,000 Units on [facility] Branch 12/21/22 at 1104, Until Discontinu ed, Routine
For Priming of Ports:&nbs p; &n bsp; After initial saline flush, prime each port with heparin according to the priming volume listed on each catheter port for catheter lock.
heparin Yes 2000U PRN - SEE Univ ers 1,000 6-15 INSTRUCTIO ity of unit/mL 16:04: NS, [place] injection 44 Starting Medica l 2,000 Units on [facility] Branch 12/21/22 at 1104, Until Discontinu ed, [...] QIDPRN, [place] mg 02 Starting Medical on [facility] 12/21/22 at 0009, Until Discontinu ed, Routine, Abdominal pain dicyclomine 0 Yes 20mg 20 mg, Univ ers (BENTYL) 6-15 Oral, ity of tablet 20 05:09: QIDPRN, [place] mg 02 Starting Medical on [facility] 12/21/22 at 0009, Until Discontinu ed, Routine, Abdominal pain heparin 0 Yes 2000U PRN - SEE Univ ers 1,000 6-13 INSTRUCTIO ity of unit/mL 21:51: NS, [place] injection 05 Starting Medica l 2,000 Units on [facility] 12/19/22 at 1651, Until Discontinu ed, Routine
For Priming of Ports:&nbs p; &n bsp; After initial saline flush, prime each port with heparin according to the priming volume listed on each catheter port for catheter lock.
heparin Yes 2000U PRN - SEE Univ ers 1,000 6-13 INSTRUCTIO ity of unit/mL 21:51: NS, [place] injection 05 Starting Medica l 2,000 Units on [facility] 12/19/22 at 1651, Until Discontinu ed, Routine
For Priming of Ports:&nbs p; &n bsp; After initial saline flush, prime each port with heparin according to the priming volume listed on each catheter port for catheter lock.
diphenhydrA 3-0 Yes 25mg 25 mg, [facility] MINE 12-19 Oral, ity of (BENADRYL) 09:29: Q4HPRN, [place] tablet 25 48 Starting Medica l mg on [facility] Branch 12/19/22 at 0429, Until Discontinu ed, Routine, Itching diphenhydrA 2022-0 Yes 25mg 25 mg, [facility] MINE 12-19 Oral, ity of (BENADRYL) 09:29: Q4HPRN, [place] tablet 25 48 Starting Medica l mg on [facility] Branch 12/19/22 at 0429, Until Discontinu ed, Routine, Itching heparin 2022- No [id number] 2800U ONCE, 1 Univers 1,000 12-18 dose, On ity of unit/mL 17:15: 18:47 Mon [place] injection 00 :00 12/18/22 at [facility] jose 2,800 Units 1215, Branch Routine
Catheter packing
simethicone 2022-0 Yes 80mg 80 mg, [facility] ers (GAS RELIEF 6-11 Oral, ity of (SIMETHICON 18:00: PC+HS, [place] E)) 00 First dose Medical chewable on Sun Branch tablet 80 12/17/22 at mg 1300, Until Discontinu ed, Routine simethicone 3-0 Yes 80mg 80 mg, [facility] ers (GAS RELIEF -11 Oral, ity of [...] 14 days epoetin Yes 8000U 8,000 Univers vansea-epbx 6-10 Units, ity of (RETACRIT) 11:45: [place] injection 00 us, Medical 8,000 Units QMON/WED/F Br anch RI AT 1999, First dose on 12/16/22 at 0745, Until Discontinu ed, Routine
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
Do ses of ondansetro n 16 mg and above need to be administer ed via IV piggyback. For Dose >=24mg ECG monitoring is advisable.
ondansetron 3-0 Yes 4mg 4 mg, Slow Univers (ZOFRAN 6-10 IV Push, ity of (PF)) 00:52: Q6HPRN, [place] injection 4 31 Nausea and Me dical mg Vomiting Branch (N/V), Starting on Sun12/15/22 at 1952
Do ses of ondansetro n 16 mg and above need to be administer ed via IV piggyback. For Dose >=24mg ECG monitoring is advisable.
heparin 2022- No [id number] 4300U DIALYSIS Univers 1,000 12-1510 ONCE - PT ity of unit/mL 22:45: 00:22 ROOM, 1 [place] injection 00 :00 dose, On Medica l 4,300 Units Sun12/15/22 Br anch at 1745, Routine
HD Catheter ports pack: A = 2.3 ml; V = 2.3 ml
mupirocin 2022- No Nasal, Unive rs (BACTROBAN 12-15 Q12H, 10 ity of NASAL OINT) 16:30: [...] at 0900, Until Discontinu ed, Routine cholecalcif 2023-0 Yes 1000U 1,000 Univ ers daryl 09 Units, ity of (vitamin 14:00: Oral, [place] D3) tablet 00 DAILY, Medical 1,000 Units First dose Br anch on Sun12/15/22 at 0900, Until Discontinu ed buPROPion 3-0 Yes 150mg 150 mg, Univ ers XL [...] at 0900, Until Discontinu ed, Routine cholecalcif 2023-0 Yes 1000U 1,000 Univ ers daryl 6-09 Units, ity of (vitamin 14:00: Oral, [place] [...] Units ity of unit/mL 07:43: under the [place] in 43 skin in Medical the Branch morning and 30 Units at noon and 30 Units in the evening. Sliding scale Insulin 2022-0 Yes 45U inject 45 Unive rs Glargine 6-09 Units ity of (LANTUS 07:43: under the [place] [facility] skin in [facility] U-100 [facility] INSULIN) morning 100 unit/mL and 45 (3 mL) Units in injection the evening. amLODIPine 2022-0 Yes 10mg Take 1 Unive rs 10 mg 6-09 tablet by ity of tablet 07:43: mouth in [place] [address] the Medical morning. Branch buPROPion 2022-0 Yes 150mg Take 1 Unive rs SR 150 mg 6-09 tablet by ity o f SR tablet 07:43: mouth in [place] [address] the Medical morning. Branch furosemide 2022-0 Yes 160mg Take 2 Univ ers 80 mg 6-09 tablets by ity of tablet 07:43: mouth in [place] [address] the Medical morning. Branch lisinopriL 2022-0 Yes 5mg Take 1 Unive rs 5 mg tablet 6-09 tablet by ity of 07:43: mouth in [place] [address] the Medical morning. Branch metoprolol 2022-0 Yes 50mg Take 1 Unive rs succinate 6-09 tablet by ity o f XL 50 mg 24 07:43: mouth in [place] hr tablet 43 the Medical morning Branch and 1 tablet in the evening. pantoprazol 2022-0 Yes 40mg Take 1 Univ ers e 40 mg EC 6-09 tablet by ity of tablet 07:43: mouth in [place] [address] the Medical morning. Branch Levothyroxi 2022-0 Yes 150ug Take 150 U nivers ne 100 mcg 6-09 mcg by ity of capsule 07:43: mouth [place] [address] daily. Medical Branch aspirin 81 2022-0 Yes 81mg Take 81 mg U nivers mg Cap 12-15 by mouth ity of 07:43: in the [place] [address] morning. Medical Branch Cholecalcif Yes Take by Uni vers daryl, 6- mouth. ity of Vitamin D3, 07:43: [place] 25 mcg 43 Medical (1,000 Branch unit) capsule folic Yes Take by Univers acid/multiv 12-15 mouth ity of it-min/lute 07:43: daily. [place] [facility] in (CENTRUM 43 Medical SILVER Branch ORAL) vitamin 0 Yes 100ug Take 1 Univers B-12 100 - tablet by ity of mcg tablet 07:43: mouth [place] [address] every Medical morning. Branch loratadine 0 Yes Univers 10 mg 6 ity of tablet 07:43: [place] [address] Medical Branch multivitami 0 Yes Take by Uni vers n (MULTIPLE 6- mouth. ity of VITAMIN 07:43: [place] ESSENTIAL 43 Medical ORAL) Branch fenofibrate Yes 200mg Take 1 Uni vers micronized 12-15 capsule by ity of 200 mg 07:43: mouth. [place] capsule Medical Branch polyethylen 0 Yes 17g Take 1 Univ ers e glycol 12-15 Packet by ity of 3350 17 07:43: mouth. [place] gram powder Medical Branch clopidogreL Yes 75mg Take 1 Univ ers (PLAVIX) 75 12-15 tablet by ity of mg tablet 07:43: mouth in [facility] 43 the Medical morning. Branch NORepinephr 0 2022- No .05ug/k 0.05-0.5 Univers ine 4 mg in 12-15 06-10 g/min mcg/kg/min ity of 0.9% NaCl 07:34: 07:33 ?77 kg [place] 250 mL 23 :23 (14.4375-1 Medical infusion 44.375 [place] RTU mL/hr, rounded to 14.44-144. 38 mL/hr), [...] s vasopresso r at a time.
Sliding 2022-0 Yes [facility] Scale - us, Q6H, ity of Insulin - 05:00: First dose [place] Lispro 00 on Sun Medical (HumaLOG) 12/15/22 at [facility] h 0000, Until Discontinu ed, Routine Sliding Yes [facility] ers Scale 12-15 , Q6H, ity of Insulin - 05:00: First dose [place] Lispro 00 on Sun Medical (HumaLOG) 12/15/22 at [facility] h 0000, Until Discontinu ed, Routine NaCl [...] Last dose on Sun12/16/22 at 2300 potassium 2023-0 2023- No 10meq 10 mEq, IV Univers chloride [...] swallow or has mental status changes. glucagon 0 Yes 1mg 1 mg, Univers (GLUCAGEN 12-15 [...] br>Duratio n of therapy: 5 days metroNIDAZO 2022-0 202- No 500mg 500 mg, IV Univers LE [...] On [place] 12/14/22 at 2115, STAT glycerin/mi 2022- No 225mL 225 mL, U nivers neral oil 12-15 Rectal, ity of (AGLO 02:15: 01:56 ONCE, 1 [place] ENEMA) 00 :00 dose, On Medical (COMPOUNDED [place] 12/14/22 Br anch ) Enem 225 at 2115, [...] (ADULT)) First dose Branc h suppository on [place] 12/14/22 at Suppository 2030, Until Discontinu ed, Routine acetaminoph 2022-2022- No 500mg 500 mg, U nivers en 12-15 Oral, ity of (TYLENOL) 01:00: 00:03 ONCE, 1 [place] tablet 500 00 :00 dose, On Medic al mg [facility] 12/14/22 Branch at 2000, Routine ketorolac 2022- No 15mg 15 mg, Unive rs (TORADOL) 12-15 Slow IV ity of injection 00:45: 00:32 Push, [place] 15 mg 00 :00 ONCE, 1 Medical dose, On Branch [facility] 12/14/22 at 1945, Routine ceFEPIme 2022- No 1g 1 g, IV Unive rs (MAXIPIME) 12-15 Piggyback, it y of 1 g in NaCl 00:15: 00:02 ONCE, 1 [place] 0.9% (NS) 00 :00 dose, On Medica l 50 mL [facility] 12/14/22 [place] MINI-BAG at 1915, Administer over 30 Minutes, 50 mL
Reas on for Anti-Infec tive: Documented Infection< br>Documen matthew Infection Site: Skin / Soft Tissue< br>Duratio n of Therapy: 7 days ondansetron 2022- No 4mg 4 mg, Slow Univers (ZOFRAN 12-1408 IV Push, ity of (PF)) 23:15: 23:32 ONCE, 1 [place] injection 4 00 :00 dose, On Medi jose mg [facility] 12/14/22 [place] at 1815, VIOLETTA mupirocin Yes Nasal, Univer s (BACTROBAN 5-02 Q12H, For ity of NASAL OINT) 18:45: 5 days, [place] as 2 % nasal 33 First dose Medi jose ointment conditiona Branc h l, Routine insulin Yes 30U inject 30 Unive rs lispro 100 5-02 Units ity of unit/mL 17:42: under the [place] inph 52 skin in Medical the Branch morning and 30 Units at noon and 30 Units in the evening. Sliding scale Insulin 0 Yes 45U inject 45 Unive rs Glargine 5-02 Units ity of (LANTUS 17:42: under the [place] SOLOSTAR 52 skin in [facility] U-100 the [place] INSULIN) morning 100 unit/mL and 45 (3 mL) Units in injection the evening. amLODIPine 2023-0 Yes 10mg Take 1 Unive rs 10 mg 5-02 tablet by ity of tablet 17:42: mouth in [place] [address] the Medical morning. Branch buPROPion 0 Yes 150mg Take 1 Unive rs SR 150 mg 5-02 tablet by ity o f SR tablet 17:42: mouth in [place] [address] the Medical morning. Branch furosemide 2022-0 Yes 160mg Take 2 Univ ers 80 mg 5-02 tablets by ity of tablet 17:42: mouth in [place] [address] the Medical morning. Branch lisinopriL 2022-0 Yes 5mg Take 1 Unive rs 5 mg tablet 5-02 tablet by ity of 17:42: mouth in [place] [address] the Medical morning. Branch metoprolol 2022-0 Yes 50mg Take 1 Unive rs succinate 5-02 tablet by ity o f XL 50 mg 24 17:42: mouth in [place] tablet 52 the Medical morning Branch and 1 tablet in the evening. pantoprazol 0 Yes 40mg Take 1 Univ ers e 40 mg EC 5-02 tablet by ity of tablet 17:42: mouth in [place] [address] the Medical morning. Branch Levothyroxi 0 Yes 150ug Take 150 U nivers ne 100 mcg 5-02 mcg by ity of capsule 17:42: mouth [place] [address] daily. Medical Branch aspirin 81 0 Yes 81mg Take 81 mg U nivers mg Cap 5-02 by mouth ity of 17:42: in the [place] [address] morning. Medical Branch Cholecalcif 0 Yes Take by Uni vers daryl, 5-02 mouth. ity of Vitamin D3, 17:42: [place] 25 [facility] Medical (1,000 Branch unit) capsule folic 0 Yes Take by Univers acid/multiv 5-02 mouth ity of it-min/lute 17:42: daily. [place] [facility] (CENTRUM 52 Medical SILVER Branch ORAL) vitamin 2022-0 Yes 100ug Take 1 Univers B-12 100 5-02 tablet by ity of mcg tablet 17:42: mouth [place] [address] every Medical morning. Branch loratadine 0 Yes Univers 10 mg 5-02 ity of tablet 17:42: [place] [address] Medical Branch multivitami 2022-0 Yes Take by Uni vers n (MULTIPLE 5-02 mouth. ity of VITAMIN 17:42: [place] ESSENTIAL 52 Medical ORAL) Branch fenofibrate 2022-0 Yes 200mg Take 1 Uni vers micronized 5-02 capsule by ity of 200 mg 17:42: mouth. [place] capsule Medical Branch polyethylen 2022-0 Yes 17g Take 1 Univ ers e glycol 5-02 Packet by ity of 3350 17 17:42: mouth. [place] gram powder 52 Medical Branch clopidogreL 2022-0 Yes 75mg Take 1 Univ ers (PLAVIX) 75 5-02 tablet by ity of mg tablet 17:42: mouth in [place] [address] the Medical morning. Branch insulin 2022-0 Yes 30U inject 30 Unive rs lispro 100 5-02 Units ity of unit/mL 17:42: under the [place] in 52 skin in [facility] the Branch morning and 30 Units at noon and 30 Units in the evening. Sliding scale Insulin 2022-0 Yes 45U inject 45 Unive rs Glargine 5-02 Units ity of (LANTUS 17:42: under the [place] [address] skin in [facility] U-100 the [place] INSULIN) morning 100 unit/mL and 45 (3 mL) Units in injection the evening. amLODIPine 2022-0 Yes 10mg Take 1 Unive rs 10 mg 5-02 tablet by ity of tablet 17:42: mouth in [place] [address] the Medical morning. Branch buPROPion 2022-0 Yes 150mg Take 1 Unive rs SR 150 mg 5-02 tablet by ity o f SR tablet 17:42: mouth in [place] [address] the Medical morning. Branch furosemide 2022-0 Yes 160mg Take 2 Univ ers 80 mg 5-02 tablets by ity of tablet 17:42: mouth in [place] [address] the Medical morning. Branch lisinopriL 2022-0 Yes 5mg Take 1 Unive rs 5 mg tablet 5-02 tablet by ity of 17:42: mouth in [place] [address] the Medical morning. Branch metoprolol 2022-0 Yes 50mg Take 1 Unive rs succinate 5-02 tablet by ity o f XL 50 mg 24 17:42: mouth in [facility] hr [place] [address] the Medical morning Branch and 1 tablet in the evening. pantoprazol 2022-0 Yes 40mg Take 1 Univ ers e 40 mg EC 5-02 tablet by ity of tablet 17:42: mouth in [place] [address] the Medical morning. Branch Levothyroxi Yes 150ug Take 150 U nivers ne 100 mcg 5-02 mcg by ity of capsule 17:42: mouth [place] [address] daily. Medical Branch aspirin 81 0 Yes 81mg Take 81 mg U nivers mg Cap 5-02 by mouth ity of 17:42: in the [place] [address] morning. Medical Branch Cholecalcif 0 Yes Take by Uni vers daryl, 5-02 mouth. ity of Vitamin D3, 17:42: [place] 25 [facility] Medical (1,000 Branch unit) capsule folic 0 Yes Take by Univers acid/multiv 5-02 mouth ity of it-min/lute 17:42: daily. [place] [facility] (CENTRUM 52 Medical SILVER Branch ORAL) vitamin 0 Yes 100ug Take 1 Univers B-12 100 5-02 tablet by ity of mcg tablet 17:42: mouth [place] [address] every Medical morning. Branch loratadine Yes Univers 10 mg 5-02 ity of tablet 17:42: [place] [address] Medical Branch multivitami 0 Yes Take by Uni vers n (MULTIPLE 5-02 mouth. ity of VITAMIN 17:42: [place] [address] Medical ORAL) Branch fenofibrate 0 Yes 200mg Take 1 Uni vers micronized 5-02 capsule by ity of 200 mg 17:42: mouth. [place] capsule Medical Branch polyethylen 0 Yes 17g Take 1 Univ ers e glycol 5-02 Packet by ity of 3350 17 17:42: mouth. [place] gram powder Medical Branch clopidogreL 0 Yes 75mg Take 1 Univ ers (PLAVIX) 75 5-02 tablet by ity of mg tablet 17:42: mouth in [facility] s 52 the Medical morning. Branch mupirocin 2 Yes [id number] .5g Use 0.5 g Univers % nasal 5-02 in each ity of ointment 00:00: nostril [place] [address] every 12 Medical (twelve) Branch hours. mupirocin 2 0 Yes [id number] .5g Use 0.5 g Univers % nasal 5-02 in each ity of ointment 00:00: nostril [place] [address] every 12 Medical (twelve) Branch hours. mupirocin 2 0 Yes [id number] .5g Use 0.5 g Univers % nasal 5-02 in each ity of ointment 00:00: nostril [place] 00 every 12 Medical (twelve) Branch hours. mupirocin 2 2022- No [id number] .5g Use 0.5 g Univers % nasal 11-07 in each ity of ointment 00:00: 00:00 nostril [place] 00 :00 every 12 Medical (twelve) Branch hours. atorvastati 2022- No [id number] 40mg Take 1 Univers n 40 mg 11-07 tablet by ity of tablet 00:00: 04:59 mouth at [place] 00 :00 bedtime Medical for 30 Branch days. atorvastati 2022- No [id number] 40mg Take 1 Univers n 40 mg 11-07 tablet by ity of tablet 00:00: 04:59 mouth at [place] 00 :00 bedtime Medical for 30 Branch days. mupirocin Yes [id number] Uni vers (BACTROBAN 11-06 ity of OINT) 2 % 19:00: [place] skin 00 Medical ointment Branch heparin 2022- No [id number] 4600U DIALYSIS Univers 1,000 11-06 ONCE - PT ity of unit/mL 15:15: 16:26 ROOM, 1 [place] injection 00 :00 dose, On Medica l 4,600 Units 11/06/22 Br anch at 1015, Routine
A port : 2.3 ml V port : 2.3 ml To verónica: 4.6 ml
sulfur 2022- No [id number] 5mL 5 mL, Unive rs hexafluorid 11-05 04-30 Intravenou i ty of e microsphr 15:15: 15:15 s, ONCE, 1 [place] (LUMASON) 00 :00 dose, On Medica l injection 5 Sun Branch mL 11/05/22 at 1015, Routine
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 Restricted medication : KIMBERLY TORRES polyethylen Yes 17g 17 g, Unive rs e glycol 4-30 Oral, ity of 3350 powder 14:00: DAILY, [place] 17 g 00 First dose Medical on Sun Branch 4/30/23 at 0900, Until Discontinu ed, Routine pantoprazol [...] mg 00 First dose Medical on Sun [place] 11/05/22 at 0900, Until Discontinu ed, Routine clopidogreL Yes 75mg 75 mg, Univ ers (PLAVIX) 75 4-30 Oral, ity of mg tablet 14:00: DAILY, [place] 75 mg 00 First dose Medical on [facility] 11/05/22 at 0900, Until Discontinu ed, Routine [...] DAILY, [place] 00 First dose Medical on [facility] 11/05/22 at 0900, Until Discontinu ed Sliding 0 Yes Subcutaneo Univ ers Scale 4-30 us, TID ity of Insulin - 13:00: MEALS+HS, [place] as Lispro 00 First dose Medical (HumaLOG) on Sun Branch 11/05/22 at 0800, Until Discontinu ed, Routine sevelamer 0 Yes 800mg 800 mg, Univ ers (RENVELA) 4-30 Oral, TID ity o f tablet 800 13:00: MEALS, [place] mg 00 First dose Medical on Sun Branch 11/05/22 at 0800, Until Discontinu ed, Routine psyllium 2022-0 Yes 1{packe 1 Packet, U nivers husk 4-30 t} Oral, BID, ity of (METAMUCIL 13:00: First dose [place] (SUGAR 00 on Sun Medical FREE)) 3.4 11/05/22 at [facility] nc gram oral 0800, powder Until packet 1 [...] KIT) 03 Starting Medical injection 1 on [facility] mg 11/05/22 at 0713, Until Discontinu ed, VIOLETTA, Blood Glucose < or = 70 mg/dL and patient is NPO, unable to swallow or has mental changes. dextrose 50 2022-0 Yes 25mL 25 mL, Univ ers % in water 4-30 Slow IV ity of (D50W) 12:13: Push, PRN, [place] injection 03 Starting Medica l 25 mL on [place] Branch 11/05/22 at 0713, Until Discontinu ed, VIOLETTA, Blood Glucose < or = 70 mg/dL and patient is NPO, unable to swallow or has mental status changes. levothyroxi 2022-0 Yes 150ug 150 mcg, U nivers ne 4-30 Oral, ity of (SYNTHROID) 11:00: QAM-0600, [place] tablet 150 00 First dose Med ical mcg on [place] Branch 11/05/22 at 0600, Until Discontinu ed, [...] dical mg Vomiting Branch (N/V), Starting on [facility] 11/04/22 at 2138
Do ses of ondansetro n 16 mg and above need to be administer ed via IV piggyback. For Dose >=24mg ECG monitoring is advisable.
KCL 2022-0 2022- No 40meq 40 mEq, Univers (KLOR-CON 11-05 04-30 Oral, ity of M20) tablet 02:15: 03:06 ONCE, 1 [place] 40 mEq 00 :00 dose, On Medical [facility] Branch 11/04/22 at 2114, Routine HYDROcodone 2022-0 Yes 1{tbl} 1 tablet, Univers -acetaminop 4-30 Oral, ity of hen (NORCO 02:03: Q6HPRN, [place] 5) 5-325 mg 40 Starting Medi jose tablet 1 on [facility] Branch tablet 11/04/22 at 2102, Until Discontinu ed, Routine, Pain (scale 7-10) traMADoL 2022-0 Yes 50mg 50 mg, Univers (ULTRAM) 4-30 Oral, ity of tablet 50 02:03: Q6HPRN, [place] mg 11 Starting Medical on [facility] Branch 11/04/22 at 210, Until Discontinu ed, Routine, Pain (scale 4-6) atorvastati 2022-0 Yes 40mg 40 mg, Univ ers n (LIPITOR) 4-30 Oral, QHS, it y of tablet 40 02:00: First dose [place] mg 00 on [facility] Medical 11/04/22 at Branch 2100, Until Discontinu ed, Routine metoprolol 2022-0 Yes 50mg 50 mg, Unive rs succinate 4-30 Oral, BID, ity of XL (TOPROL 01:45: First dose [place] XL) tablet 00 on [facility] Medical 50 mg 11/04/22 at [...] 11-04 Oral, ity of (TYLENOL) 21:56: Q6HPRN, [place] tablet 650 18 Starting Medic al mg on Sat Branch 11/04/22 at 1656, Until Discontinu ed, Routine, Pain (scale 1-3) KCL 2022- No 20meq 20 mEq, Univers (KLOR-CON 11-04 Oral, ity of M20) tablet 21:30: 22:08 ONCE, 1 [place] 20 mEq 00 :00 dose, On Medical Sat Branch 11/04/22 at 1630, VIOLETTA FENTanyl PF 2022- No 25ug 25 mcg, Un hellen (SUBLIMAZE 11-04 Slow IV ity o f (PF)) 20:45: 20:53 Push, [place] injection 00 :00 ONCE, 1 Medical 25 mcg dose, On Branch [facility] 11/04/22 at 1545, STAT sevelamer Yes 3200mg Take 4 Univ ers 800 mg 1-03 tablets by ity of tablet 00:00: mouth. [place] [facility] sevelamer 2022-0 Yes 3200mg Take 4 Univ ers 800 mg 1-03 tablets by ity of tablet 00:00: mouth. [address] sevelamer 2022-0 Yes 3200mg Take 4 Univ ers 800 mg 1-03 tablets by ity of tablet 00:00: mouth. [place] [facility] sevelamer 0 Yes 3200mg Take 4 Univ ers 800 mg 1-03 tablets by ity of tablet 00:00: mouth. [address] sevelamer 0 Yes 3200mg Take 4 Univ ers 800 mg 1-03 tablets by ity of tablet 00:00: mouth. [address] buPROPion 2021-07 Yes 150mg Q.5D Take [...] :00 needed for l heartburn. traMADoL 2021-07 50mg Q8H Take 1 Metho [...] 5 days .acute pain. traMADoL 2021-07 No [id number] 50mg Q8H Take 1 Metho di (Ultram) 50 0-19 10-25 tablet (50 s t mg tablet 00:00: 04:59 mg total) Ho spita 00 :00 by mouth l every 8 (eight) hours as needed for moderate pain for up to 5 days .acute pain. traMADoL 2021-07 No [id number] 50mg Q8H Take 1 Metho di (Ultram) 50 0-19 10-25 tablet (50 s t mg tablet 00:00: 04:59 mg total) Ho spita 00 :00 by mouth l every 8 (eight) hours as needed for moderate pain for up to 5 days .acute pain. traMADoL 2021-07 No [id number] 50mg Q8H Take 1 Metho di (Ultram) 50 0-19 10-25 tablet (50 s t mg tablet 00:00: 04:59 mg total) Ho spita 00 :00 by mouth l every 8 (eight) hours as needed for moderate pain for up to 5 days .acute pain. traMADoL 2021-07 No [id number] 50mg Q8H Take 1 Metho di (Ultram) 50 0-19 10-25 tablet (50 s t mg tablet 00:00: 04:59 mg total) Ho spita 00 :00 by mouth l every 8 (eight) hours as needed for moderate pain for up to 5 days .acute pain. traMADoL 2021-07 No [id number] 50mg Q8H Take 1 Metho di (Ultram) [...] solution 00 times a l day. lactulose 2021-0 Yes Q.5D Take by Metho [...] TWICE l DAILY UNTIL ALL TAKEN. traMADoL 50mg Q8H Take 1 Metho di (Ultram) [...] up to 5 days .acute pain. traMADoL [id number] 50mg Q8H Take 1 Metho di (Ultram) 50 03-06-04 tablet (50 s t mg tablet 00:00: 04:59 mg total) Ho spita 00 :00 by mouth l every 8 (eight) hours as needed for moderate pain for up to 5 days .acute pain. traMADoL [id number] 50mg Q8H Take 1 Metho di (Ultram) 50 03-06- tablet (50 s t mg tablet 00:00: 04:59 mg total) Ho spita 00 :00 by mouth l every 8 (eight) hours as needed for moderate pain for up to 5 days .acute pain. traMADoL [id number] 50mg Q8H Take 1 Metho di (Ultram) 50 03-06- tablet (50 s t mg tablet 00:00: 04:59 mg total) Ho spita 00 :00 by mouth l every 8 (eight) hours as needed for moderate pain for up to 5 days .acute pain. traMADoL [id number] 50mg Q8H Take 1 Metho di (Ultram) 50 03-06- tablet (50 s t mg tablet 00:00: 04:59 mg total) Ho spita 00 :00 by mouth l every 8 (eight) hours as needed for moderate pain for up to 5 days .acute pain. traMADoL [id number] 50mg Q8H Take 1 Metho di (Ultram) 50 03-06-04 tablet (50 s t mg tablet 00:00: 04:59 mg total) Ho spita 00 :00 by mouth l every 8 (eight) hours as needed for moderate pain for up to 5 days .acute pain. traMADoL [id number] 50mg Q8H Take 1 Metho di (Ultram) 50 03-06-04 tablet (50 s t mg tablet 00:00: 04:59 mg total) Ho spita 00 :00 by mouth l every 8 (eight) hours as needed for moderate pain for up to 5 days .acute pain. traMADoL [id number] 50mg Q8H Take 1 Metho di (Ultram) 50 03-06-04 tablet (50 s t mg tablet 00:00: 04:59 mg total) Ho spita 00 :00 by mouth l every 8 (eight) hours as needed for moderate pain for up to 5 days .acute pain. traMADoL 2021- No [id number] 50mg Q8H Take 1 Metho di (Ultram) 50 03-06-04 tablet (50 s t mg tablet 00:00: 04:59 mg total) Ho spita 00 :00 by mouth l every 8 (eight) hours as needed for moderate pain for up to 5 days .acute pain. traMADoL 2021- No [id number] 50mg Q8H Take 1 Metho di (Ultram) [...] amoxicillin 2022-0 2022- No Metho di (AMOXIL) 8 10-17 st 500 MG 00:00: 00:00 Hospita capsule 00 :00 l amoxicillin 2022-0 2022- No Metho di (AMOXIL) 8 10-17 st 500 MG 00:00: 00:00 Hospita capsule 00 :00 l amoxicillin 2022-0 2022- No Metho di (AMOXIL) 8 10-17 st 500 MG 00:00: 00:00 Hospita capsule 00 :00 l amoxicillin 2022-0 2022- No Metho di (AMOXIL) 8 10-17 st 500 MG 00:00: 00:00 Hospita capsule 00 :00 l amoxicillin 2022-0 2022- No Metho di (AMOXIL) 8 10-17 st 500 MG 00:00: 00:00 Hospita capsule 00 :00 l amoxicillin 2022-0 2022- No Metho di (AMOXIL) 8 10-17 [...] 500mg QD Take 500 Methodi in HCl 12-12 06-[address] (CIPRO 15:13: 00:00 [...] gram 00:00: Hospita packet 00 l docusate 2022-0 Yes 100mg Take 1 Univer s (COLACE) 3-19 capsule by ity o f 100 mg 00:00: mouth. [place] capsule 00 Medical Branch psyllium 2-0 Yes 1{packe Take 1 Univ ers husk 3-19 t} Packet by ity of (METAMUCIL 00:00: mouth. [place] FIBER 00 Medical SINGLES) Branch 3.4 gram oral powder packet docusate 2022-0 Yes 100mg Take 1 Univer s (COLACE) 3-19 capsule by ity o f 100 mg 00:00: mouth. [place] capsule 00 Medical Branch psyllium 2022-0 Yes 1{packe Take 1 Univ ers husk [...] Silver 8-18 0 l Ultra 20:29: Refill(s) [place] [facility] Claritin Yes 10 mg = 1 Jairo frida 8-18 tab, PO, l 20:29: Daily, PRN [place] 00 Itching / rash / allergy symptoms, # 20 tab, 0 Refill(s) Stool Yes PO, Memoria Softener 8-18 Bedtime, 0 l with 20:29: Refill(s) [place] Laxative aspirin-ome No 1 tab, PO, Memoria prazole 325 8-18 Daily, 0 l mg-40 mg 20:29: Refill(s) [facility] joss oral 00 delayed release tablet Centrum Yes PO, Daily, Jairo frida Silver 8-18 0 l Ultra 20:29: Refill(s) [place] [facility] 00 Claritin Yes 10 mg = [...] joss oral 00 delayed release tablet Centrum 0 Yes PO, Daily, J[place] frida Silver 8-18 0 l Ultra 20:29: Refill(s) [place] Claritin Yes 10 mg = 1 Jairo frida 8-18 tab, PO, l 20:29: Daily, PRN [place] 00 Itching / rash / allergy symptoms, # 20 tab, 0 Refill(s) Stool Yes PO, Memoria Softener 8-18 Bedtime, 0 l with 20:29: Refill(s) [place] Laxative aspirin-ome No 1 tab, PO, Memoria prazole 325 8-18 Daily, 0 l mg-40 mg 20:29: Refill(s) [facility] oral 00 delayed release tablet Centrum Yes PO, Daily, Jairo frida Silver 8-18 0 l Ultra 20:29: Refill(s) [place] Claritin Yes 10 mg = 1 Jairo frida 8-18 tab, PO, l 20:29: Daily, PRN [place] 00 Itching / rash / allergy symptoms, # 20 tab, 0 Refill(s) Stool 0 Yes PO, Memoria Softener 8-18 Bedtime, 0 l with 20:29: Refill(s) [place] Laxative aspirin-ome No 1 tab, PO, Memoria prazole 325 8-18 Daily, 0 l mg-40 mg 20:29: Refill(s) [place] joss oral 00 delayed release tablet Centrum Yes PO, Daily, Jairo frida Silver 8-18 0 l Ultra 20:29: Refill(s) [place] Claritin Yes 10 mg = 1 Jairo frida 8-18 tab, PO, l 20:29: Daily, PRN [place] 00 Itching / rash / allergy symptoms, # 20 tab, 0 Refill(s) Stool 0 Yes PO, Memoria Softener 8-18 Bedtime, 0 l with 20:29: Refill(s) [place] Laxative aspirin-ome No 1 tab, PO, Memoria prazole 325 8-18 Daily, 0 l mg-40 mg 20:29: Refill(s) [place] oral 00 delayed release tablet Centrum Yes PO, Daily, Jairo frida Silver 8-18 0 l Ultra 20:29: Refill(s) [place] [facility] Claritin Yes 10 mg = 1 Jairo frida 8-18 tab, PO, l 20:29: Daily, PRN [place] 00 Itching / rash / allergy symptoms, # 20 tab, 0 Refill(s) Stool Yes PO, Memoria Softener 8-18 Bedtime, 0 l with 20:29: Refill(s) [place] Laxative aspirin-ome No 1 tab, PO, Memoria prazole 325 8-18 Daily, 0 l mg-40 mg 20:29: Refill(s) [place] oral 00 delayed release tablet Centrum Yes PO, Daily, J[place] frida Silver 8-18 0 l Ultra 20:29: Refill(s) [place] Claritin Yes 10 mg = 1 Jairo frida 8-18 tab, PO, l 20:29: Daily, PRN [place] 00 Itching / rash / allergy symptoms, # 20 tab, 0 Refill(s) Stool Yes PO, Memoria Softener 8-18 Bedtime, 0 l with 20:29: Refill(s) [place] Laxative aspirin-ome No 1 tab, PO, Memoria prazole 325 8-18 Daily, 0 l mg-40 mg 20:29: Refill(s) [place] j[place] oral 00 delayed release tablet Centrum Yes PO, Daily, J[place] frida Silver 8-18 0 l Ultra 20:29: Refill(s) [place] [facility] Claritin Yes 10 mg = 1 Jairo frida 8-18 tab, PO, l 20:29: Daily, PRN [place] 00 Itching / rash / allergy symptoms, # 20 tab, 0 Refill(s) Stool 0 Yes PO, Memoria Softener 8-18 Bedtime, 0 l with 20:29: Refill(s) [place] Laxative 00 aspirin-ome No 1 tab, PO, Memoria prazole 325 8-18 Daily, 0 l mg-40 mg 20:29: Refill(s) [place] joss oral 00 delayed release tablet Centrum Yes PO, Daily, [place] frida Silver 8-18 0 l Ultra 20:29: Refill(s) [place] [facility] Claritin Yes 10 mg = 1 Jairo frida 8-18 tab, PO, l 20:29: Daily, PRN [place] 00 Itching / rash / allergy symptoms, # 20 tab, 0 Refill(s) Stool Yes PO, Memoria Softener 8-18 Bedtime, 0 l with 20:29: Refill(s) [place] Laxative aspirin-ome No 1 tab, PO, Memoria prazole 325 8-18 Daily, 0 l mg-40 mg 20:29: Refill(s) [place] j[place] oral 00 delayed release tablet Centrum Yes PO, Daily, Jairo frida Silver 8-18 0 l Ultra 20:29: Refill(s) [place] Claritin Yes 10 mg = 1 Jairo frida 8-18 tab, PO, l 20:29: Daily, PRN [place] 00 Itching / rash / allergy symptoms, # 20 tab, 0 Refill(s) Stool Yes PO, Memoria Softener 8-18 Bedtime, 0 l with 20:29: Refill(s) [place] Laxative aspirin-ome No 1 tab, PO, Memoria prazole 325 8-18 Daily, 0 l mg-40 mg 20:29: Refill(s) [place] joss oral 00 delayed release tablet Centrum Yes PO, Daily, Jairo frida Silver 8-18 0 l Ultra 20:29: Refill(s) [place] Women Claritin Yes 10 mg = 1 Jairo [...] Silver 8-18 0 l Ultra 20:29: Refill(s) [place] Claritin Yes 10 mg = 1 Jairo frida 8-18 tab, PO, l 20:29: Daily, PRN [place] 00 Itching / rash / allergy symptoms, # 20 tab, 0 Refill(s) Stool Yes PO, Memoria Softener 8-18 Bedtime, 0 l with 20:29: Refill(s) [place] Laxative aspirin-ome No 1 tab, PO, Memoria prazole 325 8-18 Daily, 0 l mg-40 mg 20:29: Refill(s) [place] joss oral 00 delayed release tablet Centrum Yes PO, Daily, J[place] frida Silver 8-18 0 l Ultra 20:29: Refill(s) [place] Claritin Yes 10 mg = 1 Jairo frida 8-18 tab, PO, l 20:29: Daily, PRN [place] 00 Itching / rash / allergy symptoms, # 20 tab, 0 Refill(s) Stool Yes PO, Memoria Softener 8-18 Bedtime, 0 l with 20:29: Refill(s) [place] Laxative aspirin-ome No 1 tab, PO, Memoria prazole 325 8-18 Daily, 0 l mg-40 mg 20:29: Refill(s) [place] joss oral 00 delayed release tablet Centrum Yes PO, Daily, Jairo frida Silver 8-18 0 l Ultra 20:29: Refill(s) [place] Claritin Yes 10 mg = 1 Jairo [...] Silver 8-18 0 l Ultra 20:29: Refill(s) [place] Claritin Yes 10 mg = 1 Jairo frida 8-18 tab, PO, l 20:29: Daily, PRN [place] 00 Itching / rash / allergy symptoms, # 20 tab, 0 Refill(s) Stool Yes PO, Memoria Softener 8-18 Bedtime, 0 l with 20:29: Refill(s) [place] Laxative aspirin-ome No 1 tab, PO, Memoria prazole 325 8-18 Daily, 0 l mg-40 mg 20:29: Refill(s) [place] joss oral 00 delayed release tablet Centrum Yes PO, Daily, Jairo frida Silver 8-18 0 l Ultra 20:29: Refill(s) [place] Claritin Yes 10 mg = 1 Jairo frida 8-18 tab, PO, l 20:29: Daily, PRN [place] 00 Itching / rash / allergy symptoms, # 20 tab, 0 Refill(s) Stool Yes PO, Memoria Softener 8-18 Bedtime, 0 l with 20:29: Refill(s) [place] Laxative aspirin-ome No 1 tab, PO, Memoria prazole 325 8-18 Daily, 0 l mg-40 mg 20:29: Refill(s) [place] joss oral 00 delayed release tablet Centrum Yes PO, Daily, Jairo frida Silver 8-18 0 l Ultra 20:29: Refill(s) [place] Claritin Yes 10 mg = 1 Jairo frida 8-18 tab, PO, l 20:29: Daily, PRN [place] 00 Itching / rash / allergy symptoms, # 20 tab, 0 Refill(s) Stool Yes PO, Memoria Softener 8-18 Bedtime, 0 l with 20:29: Refill(s) [place] Laxative aspirin-ome No 1 tab, PO, Memoria prazole 325 8-18 Daily, 0 l mg-40 mg 20:29: Refill(s) [place] joss oral 00 delayed release tablet Centrum Yes PO, Daily, Jairo frida Silver 8-18 0 l Ultra 20:29: Refill(s) [place] Claritin Yes 10 mg = 1 Jairo [...] Silver 8-18 0 l Ultra 20:29: Refill(s) [place] Claritin Yes 10 mg = 1 Jairo frdia 8-18 tab, PO, l 20:29: Daily, PRN [place] 00 Itching / rash / allergy symptoms, # 20 tab, 0 Refill(s) Stool Yes PO, Memoria Softener 8-18 Bedtime, 0 l with 20:29: Refill(s) [place] Laxative aspirin-ome No 1 tab, PO, Memoria prazole 325 8-18 Daily, 0 l mg-40 mg 20:29: Refill(s) [facility] joss oral 00 delayed release tablet Centrum Yes PO, Daily, Jairo frida Silver 8-18 0 l Ultra 20:29: Refill(s) [place] Claritin Yes 10 mg = 1 Jairo frida 8-18 tab, PO, l 20:29: Daily, PRN [place] 00 Itching / rash / allergy symptoms, # 20 tab, 0 Refill(s) Stool Yes PO, [facility] Softener 8-18 Bedtime, 0 l with 20:29: Refill(s) [place] Laxative 00 cephalexin Yes 500 mg = [...] tab, PO, l tablet 20:28: Daily, # [place] 00 90 tab, 0 Refill(s) Insulin 0 [...] tab, PO, l tablet 20:28: Daily, # [place] 00 90 tab, 0 Refill(s) Insulin 0 [...] tab, PO, l tablet 20:28: Daily, # [place] 00 90 tab, 0 Refill(s) Insulin 0 [...] tab, PO, l tablet 20:28: Daily, # [place] 00 90 tab, 0 Refill(s) Insulin 0 [...] tab, PO, l tablet 20:28: Daily, # [place] 00 90 tab, 0 Refill(s) Insulin Yes [...] tab, PO, l tablet 20:28: Daily, # [place] 00 90 tab, 0 Refill(s) cephalexin Yes 500 mg = 1 M emoria 500 mg oral 8-18 cap, PO, l capsule 20:28: QID, # 20 [place] nn 00 cap, 0 Refill(s) furosemide Yes 80 mg = 1 Me moria 80 mg oral 8-18 tab, PO, l tablet 20:28: Daily, # [place] 00 90 tab, 0 Refill(s) Insulin Yes 1 unit, Memoria Lispro 100 8-18 SUB-Q, 0 l UNT/ML 20:28: Refill(s) [place] Injectable 00 Solution [Humalog] Insulin Yes 1 unit, [facility] Lispro 100 [...] tab, PO, l tablet 20:28: Daily, # [place] 00 90 tab, 0 Refill(s) Insulin 0 [...] tab, PO, l tablet 20:28: Daily, # [place] 00 90 tab, 0 Refill(s) Insulin 0 [...] tab, PO, l tablet 20:28: Daily, # [place] 00 90 tab, 0 Refill(s) Insulin 0 [...] tab, PO, l tablet 20:28: Daily, # [place] 00 90 tab, 0 Refill(s) Insulin 0 [...] tab, PO, l tablet 20:28: Daily, # [place] 00 90 tab, 0 Refill(s) Insulin 0 [...] tab, PO, l tablet 20:27: Daily, # [place] 00 90 tab, 1 Refill(s) Metoprolol Yes [...] tab, PO, l tablet 20:27: Daily, # [place] 00 90 tab, 1 Refill(s) Metoprolol 0 [...] tab, PO, l tablet 20:27: Daily, # [place] 00 90 tab, 1 Refill(s) Metoprolol 2020-0 [...] tab, PO, l tablet 20:27: Daily, # [place] 00 90 tab, 1 Refill(s) Metoprolol 2020-0 [...] tab, PO, l tablet 20:27: Daily, # [place] 00 90 tab, 1 Refill(s) Metoprolol Yes [...] tab, PO, l tablet 20:27: Daily, # [place] 00 90 tab, 1 Refill(s) Metoprolol 0 [...] tab, PO, l tablet 20:27: Daily, # [place] 00 90 tab, 1 Refill(s) Metoprolol 0 [...] tab, PO, l tablet 20:27: Daily, # [place] 00 90 tab, 1 Refill(s) Metoprolol 0 [...] tab, PO, l tablet 20:27: Daily, # [place] 00 90 tab, 1 Refill(s) Metoprolol Yes [...] tab, PO, l tablet 20:27: Daily, # [place] 00 90 tab, 1 Refill(s) Metoprolol 0 [...] tab, PO, l tablet 20:27: Daily, # [place] 00 90 tab, 1 Refill(s) Metoprolol 2020-0 [...] 0 Prefilled Refill(s) Syringe [Lantus] 3 ML 2020-0 Yes 10 unit, [facility] Insulin 8-18 SUB-Q, [...] 00 at 1231, Medic al drops Until [facility] ed, Routine, Intra-op water for Yes PRN, [...] Intra-op EPINEPHrine Yes PRN, Univer s (PF) 408 Starting ity of 1:1,000 (1 17:26: Krystle [...] ity of (HUMALOG 14:34: under the [facility] DESTIN 02 skin 3 Medical KWIKPEN (three) Branch U-100) 100 times unit/mL daily. inph Insulin Yes 45U inject 45 Unive rs Glargine 4-08 Units ity of (LANTUS 14:34: under the [place] SOLOSTAR 02 skin 2 Medical U-100 (two) Branch INSULIN) times 100 unit/mL daily. (3 mL) injection amLODIPine Yes 10mg Take 10 mg U nivers 10 mg 4-08 by mouth ity of tablet 14:34: daily. [place] [facility] buPROPion Yes 150mg Take 150 [...] 4-08 by mouth ity of 14:34: daily. [place] [facility] metoprolol Yes 50mg Take 50 mg U nivers succinate 4-08 by mouth 2 ity of XL 50 mg 24 14:34: (two) [place] hr tablet 02 times Medical daily. Branch pantoprazol Yes 40mg Take 40 mg Univers e 40 mg EC 4-08 by mouth ity o f tablet 14:34: daily. [place] [facility] Levothyroxi Yes 150ug Take 150 U nivers ne 100 mcg 4-08 mcg by ity of capsule 14:34: mouth [place] 02 daily. Medical Branch aspirin 325 Yes 325mg Take 325 U nivers mg tablet 4-08 mg by ity of 14:34: mouth [place] 02 daily. Medical Branch Cholecalcif Yes Take by Uni vers daryl, 4-08 mouth. ity of Vitamin D3, 14:34: [place] (VITAMIN [address] [place] [address] D3) 25 mcg [place] (1,000 unit) capsule folic Yes Take by [...] 1,000 mL 00 :00 IV Medical Infusion, [place] ONCE, 1 dose, Krystle 10/14/20 at 0745, Routine, DSU Pre-op insulin Yes 30U inject 30 Unive rs lispro 4-08 Units ity of (HUMALOG 09:34: under the [place] DESTIN 02 skin 3 Medical KWIKPEN (three) Branch U-100) 100 times unit/mL daily. inph Insulin Yes 45U inject 45 Unive rs Glargine 4-08 Units ity of (LANTUS 09:34: under the [place] SOLOSTAR 02 skin 2 Medical U-100 (two) Branch INSULIN) times 100 unit/mL daily. (3 mL) injection amLODIPine Yes 10mg Take 10 mg U nivers 10 mg 4-08 by mouth ity of tablet 09:34: daily. [address] Branch buPROPion Yes 150mg Take 150 Uni vers SR 150 mg 4-08 mg by ity of SR tablet 09:34: mouth daily. Medical Branch furosemide Yes 160mg Take 160 Un hellen 80 mg 4-08 mg by ity of tablet 09:34: mouth daily. Medical Branch lisinopriL Yes 5mg Take 5 mg Un hellen 5 mg tablet 4-08 by mouth ity of 09:34: daily. [place] [address] Medical Branch metoprolol Yes 50mg Take 50 mg U nivers succinate 4-08 by mouth 2 ity of XL 50 mg 24 09:34: (two) [place] hr tablet 02 times Medical daily. Branch pantoprazol Yes 40mg Take 40 mg Univers e 40 mg EC 4-08 by mouth ity o f tablet 09:34: daily. [place] [address] Medical Branch Levothyroxi Yes 150ug Take 150 U nivers ne 100 mcg 4-08 mcg by ity of capsule 09:34: mouth [place] daily. Medical Branch aspirin 325 Yes 325mg Take 325 U nivers mg tablet 4-08 mg by ity of 09:34: mouth daily. Medical Branch Cholecalcif Yes Take by Uni vers daryl, 4-08 mouth. ity of Vitamin D3, 09:34: [place] (VITAMIN [address] [place] [address] D3) 25 mcg Branch (1,000 unit) capsule folic Yes Take by Univers acid/multiv 4-08 mouth ity of it-min/lute 09:34: daily. [place] in (CENTRUM 02 [facility] Branch ORAL) insulin 2020- Yes 30U [id number] Inject 30 Methodi lispro 1-[id number] (HumaLOG 00:00: 3D [facility] the [facility] U-100 00 skin 3 l Insulin) (three) 100 unit/mL times a injection day before meals. insulin 2020- Yes 30U [id number] Inject 30 [facility] lispro 1-[id number] (HumaLOG 00:00: 3D under the [facility] U-100 00 skin 3 l Insulin) (three) 100 unit/mL times a injection day before meals. insulin 2020-1 Yes 30U [id number] Inject 30 [facility] lispro 1-[id number] (HumaLOG 00:00: 3D under the [facility] U-100 00 skin 3 l Insulin) (three) 100 unit/mL times a injection day before meals. insulin 2020- Yes 30U [id number] Inject 30 [facility] lispro 1-[id number] (HumaLOG 00:00: 3D under the [facility] U-100 00 skin 3 l Insulin) (three) 100 unit/mL times a injection day before meals. insulin 2020-1 Yes 30U [id number] Inject 30 [facility] lispro 1-[id number] (HumaLOG 00:00: 3D under the [facility] U-100 00 skin 3 l Insulin) (three) 100 unit/mL times a injection day before meals. insulin 2020-1 Yes 30U [id number] Inject 30 [facility] lispro 1-[id number] (HumaLOG 00:00: 3D under the [facility] U-100 00 skin 3 l Insulin) (three) 100 unit/mL times a injection day before meals. insulin 2020-1 Yes 30U [id number] Inject 30 [facility] lispro 1-[id number] (HumaLOG 00:00: 3D under the [facility] U-100 00 skin 3 l Insulin) (three) 100 unit/mL times a injection day before meals. insulin 2020-1 Yes 30U [id number] Inject 30 [facility] lispro 1-[id number] (HumaLOG 00:00: 3D under the [facility] U-100 00 skin 3 l Insulin) (three) 100 unit/mL times a injection day before meals. insulin 2020-1 Yes 30U [id number] Inject 30 [facility] lispro 1-[id number] (HumaLOG 00:00: 3D under the [facility] U-100 00 skin 3 l Insulin) (three) 100 unit/mL times a injection day before meals. insulin 2020-1 Yes 30U [id number] Inject 30 [facility] lispro 1-[id number] (HumaLOG 00:00: 3D under the [facility] U-100 00 skin 3 l Insulin) (three) 100 unit/mL times a injection day before meals. insulin 2020-1 Yes 30U [id number] Inject 30 [facility] lispro 1-[id number] (HumaLOG 00:00: 3D under the [facility] U-100 00 skin 3 l Insulin) (three) 100 unit/mL times a injection day before meals. insulin 2020-1 Yes 30U [id number] Inject 30 [facility] lispro 1-[id number] (HumaLOG 00:00: 3D under the [facility] U-100 00 skin 3 l Insulin) (three) 100 unit/mL times a injection day before meals. insulin 2020-0 Yes 30U inject 30 Unive rs lispro 9-24 Units ity of (HUMALOG 16:37: under the [facility] DESTIN 58 skin 3 Medical KWIKPEN (three) Branch U-100) 100 times unit/mL daily. inph Insulin 2020-0 Yes 45U inject 45 Unive rs Glargine 9-24 Units ity of (LANTUS 16:37: under the [place] SOLOSTAR 58 skin 2 Medical U-100 (two) Branch INSULIN) times 100 unit/mL daily. (3 mL) injection amLODIPine 2020-0 Yes 10mg Take 10 mg U nivers 10 mg 9-24 by mouth ity of tablet 16:37: daily. [place] [address] Medical Branch buPROPion 2020-0 Yes 150mg Take [...] by mouth ity of tablet 16:37: daily. [place] [address] Medical Branch metoprolol 2020-0 Yes 50mg Take 50 mg U nivers succinate 9-24 by mouth 2 ity of XL 50 mg 24 16:37: (two) [place] hr tablet 58 times Medical daily. Branch pantoprazol 2020-0 Yes 40mg Take 40 mg Univers e 40 mg EC 9-24 by mouth ity o f tablet 16:37: daily. [place] [address] Medical Branch Levothyroxi 2020-0 Yes 150ug Take [...] Units ity of (HUMALOG 16:37: under the [facility] s DESTIN 58 skin 3 Medical KWIKPEN (three) Branch U-100) 100 times unit/mL daily. inph Insulin 2020-0 Yes 45U inject 45 Unive rs Glargine 9-24 Units ity of (LANTUS 16:37: under the [place] SOLOSTAR 58 skin 2 Medical U-100 (two) Branch INSULIN) times 100 unit/mL daily. (3 mL) injection amLODIPine 2020-0 Yes 10mg Take 10 mg U nivers 10 mg 9-24 by mouth ity of tablet 16:37: daily. [place] [address] Medical Branch buPROPion 2020-0 Yes 150mg Take [...] by mouth ity of tablet 16:37: daily. [place] [address] Medical Branch metoprolol 2020-0 Yes 50mg Take 50 mg U nivers succinate 9-24 by mouth 2 ity of XL 50 mg 24 16:37: (two) [place] hr tablet 58 times Medical daily. Branch pantoprazol 2020-0 Yes 40mg Take 40 mg Univers e 40 mg EC 9-24 by mouth ity o f tablet 16:37: daily. [place] [address] Medical Branch Levothyroxi 2020-0 Yes 150ug Take [...] 9-24 mouth. ity of Vitamin D3, 16:37: [place] (VITAMIN [address] [place] [address] D3) 25 mcg Branch (1,000 unit) capsule folic 2020-0 Yes Take by Univers acid/multiv 9-24 mouth ity of it-min/lute 16:37: daily. [place] (CENTRUM 58 Medical SILVER Branch ORAL) insulin 2020-0 Yes 30U inject 30 Unive rs lispro 9-24 Units ity of (HUMALOG 16:37: under the [facility] s DESTIN 58 skin 3 Medical KWIKPEN (three) Branch U-100) 100 times unit/mL daily. inph Insulin 2020-0 Yes 45U inject 45 Unive rs Glargine 9-24 Units ity of (LANTUS 16:37: under the [place] SOLOSTAR 58 skin 2 Medical U-100 (two) Branch INSULIN) times 100 unit/mL daily. (3 mL) injection amLODIPine 2020-0 Yes 10mg Take 10 mg U nivers 10 mg 9-24 by mouth ity of tablet 16:37: daily. [place] [address] Medical Branch buPROPion 2020-0 Yes 150mg Take [...] by mouth ity of tablet 16:37: daily. [place] [address] Medical Branch metoprolol 2020-0 Yes 50mg Take 50 mg U nivers succinate 9-24 by mouth 2 ity of XL 50 mg 24 16:37: (two) [place] hr tablet 58 times Medical daily. Branch pantoprazol 2020-0 Yes 40mg Take 40 mg Univers e 40 mg EC 9-24 by mouth ity o f tablet 16:37: daily. [place] [address] Medical Branch Levothyroxi 2020-0 Yes 150ug Take [...] 9-24 mouth. ity of Vitamin D3, 16:37: [place] (VITAMIN [address] [place] [address] D3) 25 mcg Branch (1,000 unit) capsule folic 2020-0 Yes Take by Univers acid/multiv 9-24 mouth ity of it-min/lute 16:37: daily. [place] [facility] (CENTRUM 58 Medical SILVER Branch ORAL) insulin 2020-0 Yes 30U inject 30 Unive rs lispro 9-24 Units ity of (HUMALOG 16:37: under the [facility] s DESTIN 58 skin 3 Medical KWIKPEN (three) Branch U-100) 100 times unit/mL daily. inph Insulin 2020-0 Yes 45U inject 45 Unive rs Glargine 9-24 Units ity of (LANTUS 16:37: under the [place] SOLOSTAR 58 skin 2 Medical U-100 (two) Branch INSULIN) times 100 unit/mL daily. (3 mL) injection amLODIPine 2020-0 Yes 10mg Take 10 mg U nivers 10 mg 9-24 by mouth ity of tablet 16:37: daily. [place] [address] Medical Branch buPROPion 2020-0 Yes 150mg Take [...] by mouth ity of tablet 16:37: daily. [place] [address] Medical Branch metoprolol 2020-0 Yes 50mg Take 50 mg U nivers succinate 9-24 by mouth 2 ity of XL 50 mg 24 16:37: (two) [place] hr tablet 58 times Medical daily. Branch pantoprazol 2020-0 Yes 40mg Take 40 mg Univers e 40 mg EC 9-24 by mouth ity o f tablet 16:37: daily. [place] [address] Medical Branch Levothyroxi 2020-0 Yes 150ug Take [...] 9-24 mouth. ity of Vitamin D3, 16:37: [place] (VITAMIN 58 Medical D3) 25 mcg Branch (1,000 unit) capsule folic 2020-0 Yes Take by Univers acid/multiv 9-24 mouth ity of it-min/lute 16:37: daily. [place] (CENTRUM 58 Medical SILVER Branch ORAL) insulin 2020-0 Yes 30U inject 30 Unive rs lispro 9-24 Units ity of (HUMALOG 13:50: under the [facility] s DESTIN 18 skin 3 Medical KWIKPEN (three) Branch U-100) 100 times unit/mL daily. inph Insulin 2020-0 Yes 45U inject 45 Unive rs Glargine 9-24 Units ity of (LANTUS 13:50: under the [place] SOLOSTAR 18 skin 2 Medical U-100 (two) Branch INSULIN) times 100 unit/mL daily. (3 mL) injection amLODIPine 2020-0 Yes 10mg Take 10 mg U nivers 10 mg 9-24 by mouth ity of tablet 13:50: daily. [place] [address] Medical Branch buPROPion 2020-0 Yes 150mg Take [...] by mouth ity of tablet 13:50: daily. [place] [address] Medical Branch metoprolol 2020-0 Yes 50mg Take 50 mg U nivers succinate 9-24 by mouth 2 ity of XL 50 mg 24 13:50: (two) [place] hr tablet 18 times Medical daily. Branch pantoprazol 2020-0 Yes 40mg Take 40 mg Univers e 40 mg EC 9-24 by mouth ity o f tablet 13:50: daily. [place] [address] Medical Branch Levothyroxi 2020-0 Yes 150ug Take [...] 9-24 mouth. ity of Vitamin D3, 13:50: [place] (VITAMIN 18 [facility] D3) 25 mcg Branch (1,000 unit) capsule folic 2020-0 Yes Take by Univers acid/multiv 9-24 mouth ity of it-min/lute 13:50: daily. [place] in (CENTRUM 18 Medical SILVER Branch ORAL) insulin 2020-0 Yes 30U inject 30 Unive rs lispro 9-24 Units ity of (HUMALOG 13:50: under the [facility] s DESTIN 18 skin 3 Medical KWIKPEN (three) Branch U-100) 100 times unit/mL daily. inph Insulin 2020-0 Yes 45U inject 45 Unive rs Glargine 9-24 Units ity of (LANTUS 13:50: under the [place] SOLOSTAR 18 skin 2 Medical U-100 (two) Branch INSULIN) times 100 unit/mL daily. (3 mL) injection amLODIPine 2020-0 Yes 10mg Take 10 mg U nivers 10 mg 9-24 by mouth ity of tablet 13:50: daily. [place] [address] Medical Branch buPROPion 2020-0 Yes 150mg Take [...] by mouth ity of tablet 13:50: daily. [place] [address] Medical Branch metoprolol 2020-0 Yes 50mg Take 50 mg U nivers succinate 9-24 by mouth 2 ity of XL 50 mg 24 13:50: (two) [place] hr tablet 18 times Medical daily. Branch pantoprazol 2020-0 Yes 40mg Take 40 mg Univers e 40 mg EC 9-24 by mouth ity o f tablet 13:50: daily. [place] [address] Medical Branch Levothyroxi 2020-0 Yes 150ug Take [...] 04-01 mouth. ity of Vitamin D3, 13:50: [place] (VITAMIN 18 [facility] D3) 25 mcg Branch (1,000 unit) capsule [...] [place] 00 :17 PROCEDURE, Medical Starting [facility] 04/01/20 at 0804, Until [place] 04/01/20 at 0833, Routine, Intra-op propofoL IV 2020-0 2020- No Intravenou Univers infusion 04-01 s, ONCE ity of 13:04: 13:33 INTRA [place] 00 :17 PROCEDURE, Medical Starting Branch [facility] 04/01/20 at 0804, Until Krystle 04/01/20 at 0833, Routine, Intra-op lidocaine 2020-0 2020- No ONCE INTRA U nivers 1% 04-01 PROCEDURE, ity of (XYLOCAINE) 13:02: 13:33 Starting [place] 100 mg/10 00 :17 Krystle Medical mL (1 %) 04/01/20 at [facility] h injection 0802, Until K[place]le 04/01/20 at 0833, Routine, Intra-op remifentani 2020-0 2020- No Intravenou Univers L (ULTIVA) 04-01 s, ONCE ity o f injection 13:02: 13:33 INTRA [place] 00 :17 PROCEDURE, Medical Starting [facility] 04/01/20 at 0802, Until [place] 04/01/20 at 0833, Routine, Intra-op lidocaine 2020-0 2020- No ONCE INTRA U nivers 1% 04-01 PROCEDURE, ity of (XYLOCAINE) 13:02: 13:33 Starting [place] 100 mg/10 00 :17 Krystle Medical mL (1 %) 04/01/20 at [facility] h injection 0802, Until [place] 04/01/20 at 0833, Routine, Intra-op remifentani 2020-0 2020- No Intravenou Univers L (ULTIVA) 04-0124 s, ONCE ity o f injection 13:02: 13:33 INTRA [place] 00 :17 PROCEDURE, Medical Starting [facility] 04/01/20 at 0802, Until [place] 04/01/20 at 0833, Routine, Intra-op lactated 2020-0 2020- No IV Univers ringers IV 04-01 Infusion, ity of infusion 13:01: 13:33 CONTINUOUS [place] 00 :17 PRN, [facility] Starting [facility] 04/01/20 at 0801, Until [place] 04/01/20 at 0833, Routine, Intra-op lactated 2020-0 2020- No IV Univers ringers IV 04-01 Infusion, ity of infusion 13:01: 13:33 CONTINUOUS [place] 00 :17 PRN, [facility] Starting [facility] 04/01/20 at 0801, Until [place] 04/01/20 at 0833, Routine, Intra-op tetracaine 2020-0 Yes PRN, Univers (PONTOCAINE 04-01 Starting ity of ) 0.5 % 12:53: [place] ophthalmic 04/01/20 at Med ical drops [facility] Until Discontinu ed, Routine, Intra-op water for 2020-0 Yes PRN, Univers irrigation 04-01 Starting ity o f irrigation 12:53: Krystle [place] solution 04/01/20 at Medic al [address] [place] [address] Until Discontinu ed, Routine, Intra-op NaCl 0.9% 2020-0 Yes PRN, Univers (NS) 04-01 Starting ity of injection 12:52: Krystle [place] 04/01/[address] Until Discontinu ed, Routine, Intra-op neomycin-po 2020-0 Yes PRN, Univer s lymyxin-dex 04-01 Starting ity of amethasone 12:52: [place] (MAXITROL) 04/01/20 at Med ical [address] [place] [address] mg/g-10,000 Until unit/g-0.1 Discontinu % ed, ophthalmic Routine, ointment Intra-op gentamicin 2020-0 Yes PRN, Univers injection 04-01 Starting ity of 12:52: [place] 04/01/[address] Until Discontinu ed, VIOLETTA, Intra-op eye block 2020-0 Yes PRN, Univers syringe 11 04-01 Starting ity o f mL 12:51: Krystle [place] 04/01/20 at [place] [address], [place] Until Discontinu ed, Intra-op EPINEPHrine 2020-0 Yes PRN, Univer s (PF) 04-01 Starting ity of 1:1,000 (1 12:51: [place] mg/mL) 04/01/20 at [facility] (ADRENALIN [facility], [place] (PF)) Until injection Discontinu ed, Routine, Intra-op DUOVISC 2020-0 Yes PRN, Univers (DUOVISC 04-01 Starting ity of VISCO 12:51: [place]le [place] ELASTIC) 3 04/01/20 at [facility] ical %-4 %(0.5 075, [place] mL) 1 % Until (0.55 mL) Discontinu intraocular ed, injection Routine, Intra-op dexamethaso 2020-0 Yes PRN, Univer s ne 04-01 Starting ity of (DECADRON 12:50: [place] PHOSPHATE) 04/01/20 at [facility] ical injection [address] [place] [address] Until Discontinu ed, Routine, Intra-op ceFAZolin 2020-0 Yes PRN, Univers (ANCEF) 04-01 Starting ity of injection 12:50: Krystle [place] 04/01/20 at [place] [address], [place] Until Discontinu ed, VIOLETTA, Intra-op balanced 2020-0 Yes PRN, Univers salt soln 04-01 Starting ity of no.2 irrig. 12:49: Krystle [place] (BSS) 04/01/20 at [facility] ophthalmic 0749, [place] solution Until Discontinu ed, Routine, Intra-op lactated 2020-0 2020- No 1000mL at [address] [place] [address] rs ringers IV 04-01 09-24 mL/hr, ity of infusion 12:00: 12:17 1,000 mL, [place] 1,000 mL 00 :00 IV Medical Infusion, [place] ONCE, 1 dose, Krystle 04/01/20 at 0700, [...] 00:00: mouth [facility] 00 every l morning. busPIRone busPIRone No 1{table BID busPIRone HCl [...] t} le Sodium MG MG 40 MG buPROPion buPROPion No 1{table QD buPROPion HCl ER (SR) HCl ER (SR) t_in_th HCl ER 150 MG 150 MG e_morni (SR) 150 ng} MG Calcitriol Calcitriol No 1{capsu QD Calcitriol 0.25 MCG 0.25 MCG le} 0.25 MCG Cholecalcif Cholecalcif No 1{capsu QD Cholecalci daryl 50 MCG daryl 50 MCG le} ferol 50 (1999) (1999) MCG (1999) Levothyroxi Levothyroxi No Levothyrox ne Sodium ne Sodium ine Sodium 150 MCG 150 MCG 150 MCG Metoprolol Metoprolol No Metoprolol Tartrate 25 Tartrate 25 Tartrate MG MG 25 MG Insulin Insulin No Insulin Glargine Glargine Glargine 100 UNIT/ML 100 UNIT/ML 100 UNIT/ML Insulin Insulin No Insulin Lispro 100 Lispro 100 Lispro 100 UNIT/ML UNIT/ML UNIT/ML Aspirin 81 Aspirin 81 No 1{table QD Aspirin 81 81 MG 81 MG t} 81 MG Midodrine Midodrine No BID Midodrine HCl 5 MG HCl 5 MG HCl 5 MG Clopidogrel Clopidogrel No 1{table QD Clopidogre Bisulfate Bisulfate t} l 75 MG 75 MG Bisulfate 75 MG Levothyroxi Levothyroxi No QD Levothyrox ne Sodium ne Sodium ine Sodium 150 MCG 150 MCG 150 MCG Atorvastati Atorvastati No Atorvastat n Calcium n Calcium in Calcium 40 MG 40 MG 40 MG Sevelamer Sevelamer No 1{table TID Sevelamer Carbonate Carbonate t_with_ Carbonate 800 MG 800 MG meals} 800 MG Atorvastati Atorvastati No 1{table QD Atorvastat n Calcium n Calcium t} in Calcium 40 MG 40 MG 40 MG busPIRone busPIRone No 1{table BID busPIRone HCl 5 MG HCl 5 MG t} HCl 5 MG Loratadine Loratadine No 1{table QD [...] No 1{capsu QD Cholecalci daryl 50 MCG dayrl 50 MCG le} ferol 50 (1999) (1999) MCG (1999) Sucralfate Sucralfate No 1{table BID Sucralfate 1 GM 1 GM t_on 1 GM _empty_ stomach } Pantoprazol Pantoprazol [...] GM t_on_ 1 GM _empty_ stomach } Pantoprazol Pantoprazol [...] 50 (1999 UT) (1999 UT) MCG (1999) buPROPion buPROPion No 1{table QD [...] Status Comments Sour e Immunization Name Name ARIADNE MARTID-19 2021-07-27 Completed [facility] VACCINATION 00:00:00 [facility] PFIZER COVID-19 2021-07-27 Completed [facility] MRNA VACCINATION 00:00:00 [facility] PFIZER COVID-19 2021-07-27 Completed [facility] MRNA VACCINATION 00:00:00 [facility] PFIZER COVID-19 2021-07-27 Completed [facility] MRNA VACCINATION 00:00:00 [facility] PFIZER COVID-19 2021-07-27 Completed [facility] MRNA VACCINATION 00:00:00 [facility] PFIZER COVID-19 2021-07-27 Completed [facility] MRNA VACCINATION 00:00:00 [facility] PFIZER COVID-19 2021-07-27 Completed [facility] MRNA VACCINATION 00:00:00 [facility] PFIZER COVID-19 2021-07-27 Completed [facility] MRNA VACCINATION 00:00:00 [facility] PFIZER COVID-19 2021-07-27 Completed [facility] MRNA VACCINATION 00:00:00 [facility] PFIZER COVID-19 2021-07-27 Completed [facility] MRNA VACCINATION 00:00:00 [facility] PFIZER COVID-19 2021-07-27 Completed [facility] MRNA VACCINATION 00:00:00 [facility] SARS-COV-2 COVID-19 2021-07-27 Completed Unive rsity of PFIZER VACCINE 00:00:00 [facility] SARS-COV-2 COVID-19 2021-07-27 Completed Unive rsity of PFIZER VACCINE 00:00:00 [facility] SARS-COV-2 COVID-19 2021-07-27 Completed Unive rsity of PFIZER VACCINE 00:00:00 [facility] SARS-COV-2 COVID-19 2021-07-27 Completed Unive rsity of PFIZER VACCINE 00:00:00 [facility] SARS-COV-2 COVID-19 2021-07-27 Completed Unive rsity of PFIZER VACCINE 00:00:00 [facility] PFIZER COVID-19 2021-07-27 Completed [facility] MRNA VACCINATION 00:00:00 [facility] Influenza Virus 2021-04-20 Completed Universit y of Vaccine 00:00:00 [facility] Influenza Virus 2021-04-20 Completed Universit y of Vaccine 00:00:00 [facility] Influenza Virus 2021-04-20 Completed Universit y of Vaccine 00:00:00 [facility] Influenza Virus 2021-04-20 Completed Universit y of Vaccine 00:00:00 [facility] Influenza Virus 2021-04-20 Completed Universit y of Vaccine 00:00:00 [facility] PFIZER COVID-19 2021-02-25 Completed [facility] MRNA VACCINATION 00:00:00 [facility] PFIZER COVID-19 2021-02-25 Completed [facility] MRNA VACCINATION 00:00:00 [facility] PFIZER COVID-19 2021-02-25 Completed [facility] VACCINATION 00:00:00 [facility] PFIZER COVID-19 2021-02-25 Completed [facility] VACCINATION 00:00:00 [facility] PFIZER COVID-19 2021-02-25 Completed [facility] VACCINATION 00:00:00 [facility] PFIZER COVID-19 2021-02-25 Completed [facility]00 [facility] PFIZER COVID-19 2021-02-25 Completed [facility] 00:00:00 [facility] PFIZER COVID-19 2021-02-25 Completed [facility] VACCINATION 00:00:00 [facility] PFIZER COVID-19 2021-02-25 Completed [facility] VACC[facility] 00:00:00 Hospital PFIZER COVID-19 2021-02-25 Completed [facility] VACC[facility] 00:00:00 [facility] PFIZER COVID-19 2021-02-25 Completed [facility] VACCINATION 00:00:00 [facility] SARS-COV-2 COVID-19 2021-02-25 Completed Unive rsity of PFIZER VACCINE 00:00:00 [facility] SARS-COV-2 COVID-19 2021-02-25 Completed Unive rsity of PFIZER VACCINE 00:00:00 [facility] SARS-COV-2 COVID-19 2021-02-25 Completed Unive rsity of PFIZER VACCINE 00:00:00 [facility] SARS-COV-2 COVID-19 2021-02-25 Completed Unive rsity of PFIZER VACCINE 00:00:00 [facility] SARS-COV-2 COVID-19 2021-02-25 Completed Unive rsity of PFIZER VACCINE 00:00:00 [facility] PFIZER COVID-19 2021-02-25 Completed [facility] VACCINATION 00:00:00 [facility] PFIZER COVID-19 2021-01-06 Completed [facility] VACCINATION 00:00:00 [facility] PFIZER COVID-19 2021-01-06 Completed [facility] VACCINATION 00:00:00 [facility] PFIZER COVID-19 2021-01-06 Completed [facility] VACCINATION 00:00:00 [facility] PFIZER COVID-19 2021-01-06 Completed [facility] VACCINATION 00:00:00 [facility] PFIZER COVID-19 2021-01-06 Completed [facility] VACCINATION 00:00:00 [facility] PFIZER COVID-19 2021-01-06 Completed [facility] VACCINATION 00:00:00 [facility] PFIZER COVID-19 2021-01-06 Completed [facility] VACCINATION 00:00:00 [facility] PFIZER COVID-19 2021-01-06 Completed [facility] VACCINATION 00:00:00 [facility] PFIZER COVID-19 2021-01-06 Completed [facility] VACCINATION 00:00:00 [facility] PFIZER COVID-19 2021-01-06 Completed [facility] VACCINATION 00:00:00 [facility] PFIZER COVID-19 2021-01-06 Completed [facility] VACCINATION 00:00:00 [facility] SARS-COV-2 COVID-19 2021-01-06 Completed Unive rsity of PFIZER VACCINE 00:00:00 [facility] SARS-COV-2 COVID-19 2021-01-06 Completed Unive rsity of PFIZER VACCINE 00:00:00 [facility] SARS-COV-2 COVID-19 2021-01-06 Completed Unive rsity of PFIZER VACCINE 00:00:00 [facility] SARS-COV-2 COVID-19 2021-01-06 Completed Unive rsity of PFIZER VACCINE 00:00:00 [facility] SARS-COV-2 COVID-19 2021-01-06 Completed Unive rsity of PFIZER VACCINE 00:00:00 [facility] PFIZER COVID-19 2021-01-06 Completed [facility] M[facility] VACCINATION 00:00:00 [facility] SARS-COV-2 COVID-19 2020-11-03 Completed Unive rsity of [...] Completed Unive rsity of VACCINE, BIVALENT 00:00:00 [place] [facility] 0.2ML, PFIZER, Branch [id number], IM Pneumococcal 2019-12-05 Completed University o f Polysaccharide, 00:00:00 [place] [facility] PPSV23 (PNEUMOVAX) Branch Pneumococcal 2019-12-05 Completed University o f Polysaccharide, 00:00:00 [place] [facility] PPSV23 (PNEUMOVAX) Branch Pneumococcal 2019-12-05 Completed University o f Polysaccharide, 00:00:00 [place] [facility] PPSV23 (PNEUMOVAX) Branch Pneumococcal 2019-12-05 Completed University o f Polysaccharide, 00:00:00 [place] [facility] PPSV23 (PNEUMOVAX) Branch Pneumococcal 2019-12-05 Completed University o f Polysaccharide, 00:00:00 [place] [facility] PPSV23 (PNEUMOVAX) Branch TDAP 2019-08-19 Completed University of 00:00:00 [facility] TDAP 2019-08-19 Completed University of 00:00:00 [facility] TDAP 2019-08-19 Completed University of 00:00:00 [facility] TDAP 2019-08-19 Completed University of 00:00:00 [facility] TDAP 2019-08-19 Completed University of 00:00:00 [facility] Flu Trivalent 2019-04-28 Completed University of 00:00:00 [facility] Influenza Virus 2019-04-28 Completed Universit y of Vaccine Quad IM 3+ 00:00:00 [facility] Flu Trivalent 2019-04-28 Completed University of 00:00:00 [facility] Influenza Virus 2019-04-28 Completed Universit y of Vaccine Quad IM 3+ 00:00:00 [facility] Flu Trivalent 2019-04-28 Completed University of 00:00:00 [facility] Influenza Virus 2019-04-28 Completed Universit y of Vaccine Quad IM 3+ 00:00:00 [facility] Flu Trivalent 2019-04-28 Completed University of 00:00:00 [facility] Influenza Virus 2019-04-28 Completed Universit y of Vaccine Quad IM 3+ 00:00:00 [facility] Flu Trivalent 2019-04-28 Completed University of 00:00:00 [facility] Influenza Virus 2019-04-28 Completed Universit y of Vaccine Quad IM 3+ 00:00:00 [facility] Flu Trivalent 2018-03-18 Completed University of 00:00:00 [facility] Flu Trivalent 2018-03-18 Completed University of 00:00:00 [facility] Flu Trivalent 2018-03-18 Completed University of 00:00:00 [facility] Flu Trivalent 2018-03-18 Completed University of 00:00:00 [facility] Flu Trivalent 2018-03-18 Completed University of 00:00:00 [facility] Flu Split Virus, 2017-04-26 Completed Universi ty of PSA 00:00:00 [facility] Flu Split Virus, 2017-04-26 Completed Universi ty of PSA 00:00:00 [facility] Flu Split Virus, 2017-04-26 Completed Universi ty of PSA 00:00:00 [facility] Flu Split Virus, 2017-04-26 Completed Universi ty of PSA 00:00:00 [facility] Flu Split Virus, 2017-04-26 Completed Universi ty of PSA 00:00:00 [facility] Flu Split Virus, 2016-05-01 Completed Universi ty of PSA 00:00:00 [facility] Flu Split Virus, 2016-05-01 Completed Universi ty of PSA 00:00:00 [facility] Flu Split Virus, 2016-05-01 Completed Universi ty of PSA 00:00:00 [facility] Flu Split Virus, 2016-05-01 Completed Universi ty of PSA 00:00:00 [facility] Flu Split Virus, 2016-05-01 Completed Universi ty of PSA 00:00:00 [facility] Flu Split Virus, 2015-04-29 Completed Universi ty of PSA 00:00:00 [facility] Flu Split Virus, 2015-04-29 Completed Universi ty of PSA 00:00:00 [facility] Flu Split Virus, 2015-04-29 Completed Universi ty of PSA 00:00:00 [facility] Flu Split Virus, 2015-04-29 Completed Universi ty of PSA 00:00:00 [facility] Flu Split Virus, 2015-04-29 Completed Universi ty of PSA 00:00:00 [facility] Pneumococcal 2012-05-03 Completed University o f Polysaccharide, [...] 2012-05-03 Completed University o f Polysaccharide, 00:00:00 [place] [facility] PPSV23 (PNEUMOVAX) Branch TDAP 2009-09-06 Completed University of 00:00:00 [facility] TDAP 2009-09-06 Completed University of 00:00:00 [facility] TDAP 2009-09-06 Completed University of 00:00:00 [facility] TDAP 2009-09-06 Completed University of 00:00:00 [facility] TDAP 2009-09-06 Completed University of 00:00:00 [facility] Pneumococcal 2008-07-09 Completed University o f Polysaccharide, 00:00:00 [place] [facility] PPSV23 (PNEUMOVAX) Branch Pneumococcal 2008-07-09 Completed University o f Polysaccharide, 00:00:00 [place] [facility] PPSV23 (PNEUMOVAX) Branch Pneumococcal 2008-07-09 Completed University o f Polysaccharide, 00:00:00 [place] [facility] PPSV23 (PNEUMOVAX) Branch Pneumococcal 2008-07-09 Completed University o f Polysaccharide, 00:00:00 [place] [facility] PPSV23 (PNEUMOVAX) Branch Pneumococcal 2008-07-09 Completed University o f Polysaccharide, 00:00:00 [place] [facility] PPSV23 (PNEUMOVAX) Branch Vital Signs Vital Name Observation Time Observation Value Comments Source Systolic blood 2022-12-22 22:25:00 137 mm[Hg] Univer sity of pressure [facility] Diastolic blood 2022-12-22 22:25:00 73 mm[Hg] [facility] Heart rate 2022-12-22 22:25:00 103 /min [facility] Oxygen saturation in 2022-12-22 22:25:00 98 /min [facility] Arterial blood by [facility] Pulse oximetry Branch Respiratory rate 2022-12-22 21:00:00 13 /min [facility] Body temperature 2022-12-22 17:00:00 36.11 Katharina [facility] Body weight 2022-12-22 17:00:00 76.5 kg [facility] [place] [facility] BMI 2022-12-22 17:00:00 27.22 kg/m2 [facility] [place] [facility] Body height 2022-12-15 03:29:00 167.6 cm [facility] [place] [facility] Body temperature 2022-12-21 20:00:00 36.33 Katharina [facility] [place] [facility] Systolic blood 2022-12-21 17:00:00 130 mm[Hg] Univer sity of pressure [facility] Diastolic blood 2022-12-21 17:00:00 71 mm[Hg] Unive rsity of pressure [facility] Heart rate 2022-12-21 17:00:00 85 /min [facility] [place] [facility] Respiratory rate 2022-12-21 17:00:00 12 /min Univ ers[facility] [place] [facility] Oxygen saturation in 2022-12-21 17:00:00 100 /min University of Arterial blood by [employer] Pulse oximetry Branch Body weight 2022-12-21 11:04:00 80.468 kg [facility] [place] [facility] BMI 2022-12-21 11:04:00 27.22 kg/m2 [facility] [place] [facility] Body height 2022-12-15 03:29:00 167.6 cm [facility] [place] [facility] Systolic blood 2022-11-07 20:23:00 130 mm[Hg] Univer sity of pressure [facility] Diastolic blood 2022-11-07 20:23:00 58 mm[Hg] Unive rsity of pressure [facility] Heart rate 2022-11-07 20:23:00 62 /min [facility] [place] [facility] Body temperature 2022-11-07 20:23:00 36.11 Katharina [facility] [place] [facility] Respiratory rate 2022-11-07 20:23:00 17 /min Univ ers[facility] Oxygen saturation in 2022-11-07 20:23:00 100 /min University of Arterial blood by [employer] [facility] Pulse oximetry Branch Body weight 2022-11-06 17:09:00 74 kg [facility] [place] [facility] BMI 2022-11-06 17:09:00 26.33 kg/m2 [facility] [place] [facility] Body height 2022-11-04 22:57:00 [facility]6 [facility] height 2022-08-15 10:20:00 66.0 [in_i] Common [facility] weight 2022-08-15 10:20:00 224.4 [lb_av] [facility] temperature 2022-08-15 10:20:00 97.0 [degF] Common S pirit [facility] bmi 2022-08-15 10:20:00 36.22 kg/m2 Common S [facility] oximetry 2022-08-15 10:20:00 96 % Common [facility] respiratory rate 2022-08-15 10:20:00 17 /min Comm on [facility] blood pressure 2022-08-15 10:20:00 131 mm[Hg] Common [facility] - systolic [facility] blood pressure 2022-08-15 10:20:00 72 mm[Hg] Common [facility] - diastolic [facility] height 2022-02-27 11:20:00 66.0 [in_i] Common [facility] weight 2022-02-27 11:20:00 236.6 [lb_av] [facility] temperature 2022-02-27 11:20:00 97.2 [degF] Common [facility] bmi 2022-02-27 11:20:00 38.18 kg/m2 [facility] 2022-02-27 11:20:00 94 % Common [facility] respiratory rate 2022-02-27 11:20:00 16 /min Comm on [facility] blood pressure 2022-02-27 11:20:00 138 mm[Hg] Common [facility] - systolic [facility] blood pressure 2022-02-27 11:20:00 76 mm[Hg] [facility] - [facility] height 2022-02-27 11:00:00 66.0 [in_i] [facility] weight 2022-02-27 11:00:00 236.6 [lb_av] [facility] temperature 2022-02-27 11:00:00 97.2 [degF] [facility] bmi 2022-02-27 11:00:00 38.18 kg/m2 [facility] oximetry 2022-02-27 11:00:00 93 % [facility] respiratory rate 2022-02-27 11:00:00 16 /min Comm on [facility] blood pressure 2022-02-27 11:00:00 138 mm[Hg] Common [facility] systolic [facility] blood pressure 2022-02-27 11:00:00 76 mm[Hg] [facility] diastolic [facility] Systolic blood 2020-10-14 14:10:00 120 mm[Hg] Univer sity of pressure [facility] Diastolic blood 2020-10-14 14:10:00 65 mm[Hg] Unive rsity of [facility] Heart rate 2020-10-14 14:10:00 81 /min [facility] Body temperature 2020-10-14 14:10:[address] [facility] 2020-10-14 14:10:00 13 /min [facility] Oxygen saturation in 2020-10-14 14:10:00 99 /min [facility] Arterial blood by [facility] Pulse oximetry Branch Body height 2020-10-01 18:42:00 167.6 cm [facility] Body weight 2020-10-01 18:42:00 108.4 kg [facility] BMI 2020-10-01 18:42:00 38.59 kg/m2 [facility] Systolic blood 2020-10-14 14:10:00 120 mm[Hg] Univer sity of [facility] Diastolic blood 2020-10-14 14:10:00 65 mm[Hg] Unive rsity of [facility] Heart rate 2020-10-14 14:10:00 81 /min [facility] Body temperature 2020-10-14 14:10:00 36.06 Katharina [facility] Respiratory rate 2020-10-14 14:10:00 13 /min [facility] Oxygen saturation in 2020-10-14 14:10:00 99 /min University of Arterial blood by [place] [employer] jose Pulse oximetry Branch Body height 2020-10-01 18:42:00 167.6 cm [facility] [place] [facility] Body weight 2020-10-01 18:42:00 108.4 kg [facility] BMI 2020-10-01 18:42:00 38.59 kg/m2 [facility] [place] [facility] Systolic blood 2020-04-01 13:55:00 113 mm[Hg] Univer sity of pressure [facility] Diastolic blood 2020-04-01 13:55:00 56 mm[Hg] Unive rsity of pressure [facility] Heart rate 2020-04-01 13:55:00 63 /min [facility] [place] [facility] Body temperature 2020-04-01 13:55:00 36.11 Katharina [facility] Oxygen saturation in 2020-04-01 13:50:00 100 /min University of Arterial blood by [place] [employer] jose Pulse oximetry Branch Respiratory rate 2020-04-01 13:45:00 18 /min [facility] Body height 2020-03-30 17:15:00 167.6 cm [facility] Body weight 2020-03-30 17:15:00 108.41 kg [facility] BMI 2020-03-30 17:15:00 38.58 kg/m2 [facility] Systolic blood 2020-04-01 13:55:00 113 mm[Hg] Univer sity of pressure [facility] Diastolic blood 2020-04-01 13:55:00 56 mm[Hg] Unive rsity of pressure [facility] Heart rate 2020-04-01 13:55:00 63 /min [facility] Body temperature 2020-04-01 13:55:00 36.11 Katharina [facility] [place] [facility] Oxygen saturation in 2020-04-01 13:50:00 100 /min University of Arterial blood by [facility] jose Pulse oximetry Branch Respiratory rate 2020-04-01 13:45:00 18 /min [facility] Body height 2020-03-30 17:15:00 167.6 cm [facility] Body weight 2020-03-30 17:15:00 108.41 kg [facility] BMI 2020-03-30 17:15:00 38.58 kg/m2 [facility] Respiratory rate 2020-04-01 13:32:00 18 /min [facility] Respiratory rate 2020-04-01 13:32:00 18 /min [facility] Heart rate 2022-04-26 17:30:00 76 /min [facility] Oxygen saturation in 2022-04-26 17:30:00 93 /min [facility] Arterial blood by Pulse oximetry Systolic blood 2022-04-26 17:20:00 139 mm[Hg] [facility] pressure Diastolic blood 2022-04-26 17:20:00 67 mm[Hg] [facility] pressure Respiratory rate 2022-04-26 17:20:00 16 /min [facility] Body temperature 2022-04-26 17:00:00 36.44 Katharina [facility] Body height 2022-04-24 17:06:00 167.6 cm [facility] Body weight 2022-04-24 17:06:00 110.224 kg [facility] BMI 2022-04-24 17:06:00 39.22 kg/m2 [facility] Systolic (mm Hg) 2021-02-23 20:05:00 Jairobecki zhu [place] Diastolic (mm Hg) 2021-02-23 20:05:00 Mem orial [facility] Heart Rate 2021-02-23 20:05:00 [facility] [place] Respitory Rate 2021-02-23 20:05:00 Sriram al [place] Height 2021-02-23 20:05:00 162.56 cm [facility] 2021-02-23 20:05:00 [facility] BMI Calculated 2021-02-23 20:05:00 Sriram Larkin Procedures Procedure Date / Time Performing Source Performed Clinician POCT GLUCOSE (AUTOMATED) 2022-12-22 [facility] 16:44:00 Medical Branch POCT GLUCOSE (AUTOMATED) 2022-12-22 [facility] 16:44:00 Medical Branch POCT GLUCOSE (AUTOMATED) 2022-12-22 [facility] 11:06:00 Medical Branch POCT GLUCOSE (AUTOMATED) 2022-12-22 F[facility] 11:06:00 Medical Branch BASIC METABOLIC PANEL (NA, K, 2022-12-22 [facility] [place] CL, CO2, GLUCOSE, BUN, 10:26:00 Medical B ranch CREATININE, CA) CBC WITH DIFF [facility]22[facility]12-[facility]:26[facility] BASIC METABOLIC PANEL (NA, K, 2022-12-22 [facility], CO2, GLUCOSE, BUN, 10:26:00 Medical B ranch CREATININE, CA) CBC WITH DIFF 2022-12-22 Bulmaro [facility] xas 10:26:00 Medical Branch POCT GLUCOSE (AUTOMATED) 2022-12-22 [facility] 05:04:00 Medical Branch POCT GLUCOSE (AUTOMATED) 2022-12-22 Fina [facility] 05:04:00 Medical Branch POCT GLUCOSE (AUTOMATED) 2022-12-21 Fina [facility] 23:16:00 Medical Branch POCT GLUCOSE (AUTOMATED) 2022-12-21 [facility] 23:16:00 Medical Branch XR CHEST 1 VW 2022-12-21 [facility] xas 22:14:57 Medical Branch XR CHEST 1 VW 2022-12-21 [facility] xas 22:14:57 Medical Branch FL TIME OR (NON-REPORTABLE) 2022-12-21 [facility] 21:41:14 Medical Branch FL TIME OR (NON-REPORTABLE) 2022-12-21 [facility] 21:41:14 Medical Branch PERMACATH PLACEMENT 2022-12-21 [facility] 20:31:00 Medical Branch PERMACATH PLACEMENT 2022-12-21 [facility] 20:31:00 Medical Branch POCT GLUCOSE (AUTOMATED) [facility] POCT GLUCOSE (AUTOMATED) [facility] 17:16:00 Medical Branch POCT GLUCOSE (AUTOMATED) 2022-12-21 [facility] 11:08:00 Medical Branch POCT GLUCOSE (AUTOMATED) 2022-12-21 [facility] 11:08:00 Medical Branch POCT GLUCOSE (AUTOMATED) 2022-12-21 [facility] 05:06:00 Medical Branch POCT GLUCOSE (AUTOMATED) 2022-12-21 [facility] 05:06:00 Medical [place] POCT GLUCOSE (AUTOMATED) 2022-12-20 [facility] 23:00:00 Medical Branch POCT GLUCOSE (AUTOMATED) 2022-12-20 [facility] 23:00:00 Medical Branch POCT GLUCOSE (AUTOMATED) 2022-12-20 [facility] 16:50:00 Medical Branch POCT GLUCOSE (AUTOMATED) 2022-12-20 [facility] 16:50:00 [facility] PHOSPHORUS 2022[facility]12-20 [facility]:12[facility]00 [facility] MAGNESIUM 2022-12-20 [facility] 09:12:00 [facility] HEPATIC FUNCTION PANEL 2022-12-20 Fina [facility] ([id number]) (ALB,T.PRO,BILI 09:12:00 Medical Branch T,BU/BC,ALT,AST,ALK PHOS) BASIC METABOLIC PANEL (NA, K, 2022-12-20 [facility] CL, CO2, GLUCOSE, BUN, 09:12:00 Medical B ranch CREATININE, CA) CBC WITH DIFF 2022-12-20 [facility] 09:12:00 Medical Branch PHOSPHORUS 2022-12-20 [facility] 09[facility]12[facility]00 Medical Branch MAGNESIUM 2022-12-20 [facility] 09:12:00 [facility] HEPATIC FUNCTION PANEL 2022-12-20 Fina [facility] ([id number]) (ALB,T.PRO,BILI 09:12:00 Medical Branch T,BU/BC,ALT,AST,ALK PHOS) BASIC METABOLIC PANEL (NA, K, 2022-12-[address] [facility] [place] CL, CO2, GLUCOSE, BUN, 09:12:00 Medical B ranch CREATININE, CA) CBC WITH DIFF 2022-12-20 [facility] 09:12:00 [facility] POCT GLUCOSE (AUTOMATED) 2022-12-20 Liya [facility] 09:10:00 [facility] POCT GLUCOSE (AUTOMATED) 2022-12-20 Liya [facility] 09:10:00 Medical [place] POCT GLUCOSE (AUTOMATED) 2022-12-20 Liya [facility] 05:17:00 Medical [place] POCT GLUCOSE (AUTOMATED) 2022-12-20 Liya [facility] 05:17:00 Medical [place] POCT GLUCOSE (AUTOMATED) 2022-12-19 [facility] 23:10:00 [facility] POCT GLUCOSE (AUTOMATED) 2022-12-19 Liya [facility] 23:10:00 Medical [place] POCT GLUCOSE (AUTOMATED) 2022-12-19 Liya [facility] 16:53:00 Medical [place] POCT GLUCOSE (AUTOMATED) 2022-12-19 Liya [facility] 16:53:00 Medical [place] POCT GLUCOSE (AUTOMATED) 2022-12-19 Liya [facility] 11:08:00 Medical [place] POCT GLUCOSE (AUTOMATED) 2022-12-19 Liya [facility] 11:08:00 Medical Branch PHOSPHORUS 2022-12-19 Raj[facility] xas 09:38:00 Medical Branch MAGNESIUM 2022-12-19 Rajni, [facility] xas 09:38:00 Medical Branch BASIC METABOLIC PANEL (NA, K, 2022-12-19 [facility] CL, CO2, GLUCOSE, BUN, 09:38:00 Medical B ran CREATININE, CA) CBC WITH DIFF 2022-12-19 [facility] xas 09:38:00 Medical Branch PHOSPHORUS 2022-12-19 [facility]as 09:38:00 Medical Branch MAGNESIUM 2022-12-19 Raj[facility] 09:38:00 Medical Branch BASIC METABOLIC PANEL (NA, K, 2022-12-19 [facility] CL, CO2, GLUCOSE, BUN, 09:38:00 Medical B ran CREATININE, CA) CBC WITH DIFF 2022-12-19 Rajni [facility] xa 09:38:00 Medical Branch POCT GLUCOSE (AUTOMATED) 2022-12-19 kwaku [facility] 05:05:00 Medical Branch POCT GLUCOSE (AUTOMATED) 2022-12-19 [facility] 05:05:00 Medical Branch XR NECK SOFT TISSUE 2022-12-19 [facility] 03:07:00 Medical Branch XR NECK SOFT TISSUE 2022-12-19 [facility] 03:07:00 Medical Branch POCT GLUCOSE (AUTOMATED) 2022-12-18 kwaku [facility] 22:57:00 Medical Branch POCT GLUCOSE (AUTOMATED) 2022-12-18 kwaku [facility] 22:57:00 Medical Branch POCT GLUCOSE (AUTOMATED) 2022-12-18 kwaku [facility] 16:32:00 Medical Branch POCT GLUCOSE (AUTOMATED) 2022-12-18 [facility] 16:32:00 Medical Branch XR CHEST 1 VW 2022-12-18 [facility] xa 15:16:48 [facility] XR CHEST 1 VW 2022-12-18 [facility] x[facility] 15:16:48 [facility] [place] POCT GLUCOSE (AUTOMATED) 2022-12-18 Liya [facility] 10:48:00 Medical Branch POCT GLUCOSE (AUTOMATED) 2022-12-18 Liya [facility] 10:48:00 Medical Branch BLOOD CULTURE SCREEN 2022-12-18 [facility] 10:13:00 Medical Branch BLOOD CULTURE SCREEN 2022-12-18 [facility] 10:13:00 Medical Branch BLOOD CULTURE SCREEN 2022-12-18 [facility] 10:12:00 [facility] PHOSPHORUS 2022-12-18 Rajni [facility] [place] 10:12:00 Medical Branch MAGNESIUM 2022-12-18 Raj[facility] [place] 10:12:00 [facility] BASIC METABOLIC PANEL (NA, K, 2022-12-18 [facility] CL, CO2, GLUCOSE, BUN, 10:12:00 Medical B ranch CREATININE, CA) CBC WITH DIFF 2022-12-18 Rajni [facility] [place] 10:12:00 Medical Branch BLOOD CULTURE SCREEN 2022-12-18 Raj[facility] 10:12:00 Medical Branch PHOSPHORUS 2022-12-18 Rajni [facility] [place] 10:12:00 Medical Branch MAGNESIUM 2022-12-18 Rajni [facility] [place] 10:12:00 Medical Branch BASIC METABOLIC PANEL (NA, K, 2022-12-18 [facility] CL, CO2, GLUCOSE, BUN, 10:12:00 Medical B ranch CREATININE, CA) CBC WITH DIFF 2022-12-18 Rajni [facility] 10:12:00 Medical Branch POCT GLUCOSE (AUTOMATED) 2022-12-18 Liya [facility] 05:42:00 Medical Branch POCT GLUCOSE (AUTOMATED) 2022-12-18 [facility] 05:42:00 Medical Branch POCT GLUCOSE (AUTOMATED) 2022-12-17 [facility] 23:26:00 Medical Branch POCT GLUCOSE (AUTOMATED) 2022-12-17 [facility] 23:26:00 Medical Branch POCT GLUCOSE (AUTOMATED) 2022-12-17 [facility] 16:58[facility]00 Medical Branch POCT GLUCOSE (AUTOMATED) 2022-12-17 Liya [facility] 16:58:00 Medical Branch POCT GLUCOSE (AUTOMATED) 2022-12-17 Liya [facility] 10:39:00 Medical Branch POCT GLUCOSE (AUTOMATED) 2022-12-17 Liya [facility] 10:39:00 Medical Branch TROPONIN I 2022-12-17 [facility] 08:37:00 Medical Branch BASIC METABOLIC PANEL (NA, K, 2022-12-17 [facility], CO2, GLUCOSE, BUN, 08:37:00 Medical B ranch CREATININE, CA) CBC WITH DIFF 2022-12-17 [facility] xa 08:37:00 Medical Branch TROPONIN I 2022-12-17 [facility] xa 08:37:00 Medical Branch BASIC METABOLIC PANEL (NA, K, 2022-12-17 [facility] CL, CO2, GLUCOSE, BUN, 08:37:00 Medical B ranch CREATININE, CA) CBC WITH DIFF 2022-12-17 [facility] 08:37:00 Medical Branch POCT GLUCOSE (AUTOMATED) 2022-12-17 Liya [facility] 04:20:00 Medical Branch POCT GLUCOSE (AUTOMATED) 2022-12-17 Liya [facility] 04:20:00 Medical Branch POCT GLUCOSE (AUTOMATED) 2022-12-16 Liya [facility] 23:24:00 Medical Branch POCT GLUCOSE (AUTOMATED) 2022-12-16 Liya [facility] 23:24:00 Medical Branch POCT GLUCOSE (AUTOMATED) 2022-12-16 Liya [facility] 16:42:00 Medical Branch POCT GLUCOSE (AUTOMATED) 2022-12-16 Liya [facility] 16:42:00 Medical Branch CATHETER TIP CULTURE 2022-12-16 [facility] 16:13:00 Medical Branch CATHETER TIP CULTURE 2022-12-16 [facility] 16:13:00 Medical Branch POCT GLUCOSE (AUTOMATED) 2022-12-16 [facility] 11:14:00 Medical Branch POCT GLUCOSE (AUTOMATED) 2022-12-16 [facility] 11:14:00 Medical Branch BLOOD CULTURE SCREEN 2022-12-16 [facility] 10:00:00 Medical Branch BLOOD CULTURE SCREEN 2022-12-16 [facility] 10:00:00 Medical Branch BLOOD CULTURE SCREEN 2022-12-16 [facility] [address] 09:49:00 Medical Branch TROPONIN I 2022-12-16 [facility] 09:49:00 Medical Branch HEPATIC FUNCTION PANEL 2022-12-16 [facility] ([id number]) (ALB,T.PRO,BILI 09:49:00 Medical Branch T,BU/BC,ALT,AST,ALK PHOS) BASIC METABOLIC PANEL (NA, K, 2022-12-16 [facility] CL, CO2, GLUCOSE, BUN, 09:49:00 Medical B ranch CREATININE, CA) VANCOMYCIN RANDOM LEVEL 2022-12-16 Kari Brunson [facility] 09:49:00 P Medical Branch CBC WITH DIFF 2022-12-16 [facility] xas 09:49:00 Medical Branch BLOOD CULTURE SCREEN 2022-12-16 [facility] [address] 09:49:00 Medical Branch TROPONIN I 2022-12-16 [facility] 09:49:00 Medical [place] HEPATIC FUNCTION PANEL 2022-12-16 [facility] ([id number]) (ALB,T.PRO,BILI 09:49:00 Medical Branch T,BU/BC,ALT,AST,ALK PHOS) BASIC METABOLIC PANEL (NA, K, 2022-12-16 [facility] CL, CO2, GLUCOSE, BUN, 09:49:00 Medical B ranch CREATININE, CA) VANCOMYCIN RANDOM LEVEL 2022-12-16 Kari Brunson [facility] 09:49:00 P Medical Branch CBC WITH DIFF 2022-12-16 [facility] 09:49[facility]00 Medical Branch POCT GLUCOSE (AUTOMATED) 2022-12-16 [facility] 05:29:00 Medical Branch POCT GLUCOSE (AUTOMATED) 2022-12-16 [facility] 05:29:00 Medical Branch POCT GLUCOSE (AUTOMATED) 2022-12-15 [facility] 23:01:00 Medical Branch POCT GLUCOSE (AUTOMATED) 2022-12-15 [facility] 23:01:00 Medical Branch TROPONIN I 2022-12-15 [facility] 22:25:00 Medical Branch TRANSFUSE PACKED RBC 2022-12-15 Taran Floresaf Mal[facility] 22:25:00 Medical Branch TROPONIN I 2022-12-15 [facility] [place] 22:25:00 Medical Branch TRANSFUSE PACKED RBC 2022-12-15 Elizabet Flores [facility] 22:25:00 Medical Branch PREPARE PACKED RBC 2022-12-15 Fina [facility] 22:05:53 Medical [place] PREPARE PACKED RBC 2022-12-15 Bulmaro [facility] 22:05:53 Medical Branch HEPATITIS B SURFACE ANTIBODY 2022-12-15 [facility] 21:30:00 Medical Branch HEPATITIS B SURFACE ANTIGEN 2022-12-15 Taran Floresaf [facility] 21:30:00 Medical Branch HEPATITIS B SURFACE ANTIBODY 2022-12-15 [facility] Floresaf [facility] 21:30:00 Medical Branch HEPATITIS B SURFACE ANTIGEN 2022-12-15 Taran Floresaf [facility] 21:30:00 Medical Branch ABORH CONFIRMATION (LAB ONLY) 2022-12-15 [facility] 17:58:00 Medical Branch ABORH CONFIRMATION (LAB ONLY) 2022-12-15 [facility] 17:58:00 Medical Branch POCT GLUCOSE (AUTOMATED) 2022-12-15 [facility], [facility] 17:57:00 Medical Branch POCT GLUCOSE (AUTOMATED) 2022-12-15 [facility], [facility] 17:57:00 Medical Branch TROPONIN I 2022-12-15 [facility], [facility] xas 16:29:00 Medical Branch HB ABO GROUPING 2022-12-15 [facility] 16:29:00 Medical Branch TROPONIN I 2022-12-15 [facility], [facility] xas 16:29:00 Medical Branch HB ABO GROUPING 2022-12-15 [facility] 16:29:00 Medical Branch XR ABDOMEN 1 VW 2022-12-15 [facility], [facility] 13:17:17 Medical Branch XR ABDOMEN 1 VW 2022-12-15 [facility], [facility] x[facility] 13:17:17 Medical Branch TRANSTHORACIC ECHO (TTE) 2022-12-15 [facility], [facility] LIMITED W/ DOPPLER AND COLOR 12:57:00 [facility] Branch TRANSTHORACIC ECHO (TTE) 2022-12-15 [facility], [facility] LIMITED W/ DOPPLER AND COLOR 12:57:00 [facility]US 2022-12-15 [facility] 10:53:00 Medical Branch LIPASE 2022-12-15 [facility] 10:53:00 Medical Branch MAGNESIUM 2022-12-15 [facility], [facility] 10:53:00 Medical Branch TROPONIN I 2022-12-15 [facility], [facility] 10:53:00 Medical Branch BASIC METABOLIC PANEL (NA, K, 2022-12-15 Tavo Nickerson [facility] CL, CO2, GLUCOSE, BUN, 10:53:00 Medical B ranch CREATININE, CA) CBC WITH DIFF 2022-12-15 [facility], [facility] 10:53:00 Medical Branch N-TERMINAL PRO-BNP 2022-12-15 [facility], [facility] 10:53:00 Medical Branch PHOSPHORUS 2022-12-15 [facility] 10:53:00 Medical Branch LIPASE 2022-12-15 [facility] 10:53:00 Medical Branch MAGNESIUM 2022-12-15 [facility] 10:53:00 Medical Branch TROPONIN I 2022-12-15 [facility] 10:53:00 Medical Branch BASIC METABOLIC PANEL (NA, K, 2022-12-15 [facility], [facility] CL, CO2, GLUCOSE, BUN, 10:53:00 Medical B ranch CREATININE, CA) CBC WITH DIFF 2022-12-15 [facility], [facility] xa 10:53:00 Medical Branch N-TERMINAL PRO-BNP 2022-12-15 [facility], [facility] 10:53:00 Medical Branch POCT GLUCOSE (AUTOMATED) 2022-12-15 [facility] 10:43:00 Medical Branch POCT GLUCOSE (AUTOMATED) 2022-12-15 [facility], [facility] 10:43:00 Medical Branch COMP. METABOLIC PANEL ([id number]) 2022-12-15 Tavo Nickerson [facility] 07:02:00 Medical Branch CBC WITH DIFF 2022-12-15 [facility] xa 07:02:00 Medical Branch LACTIC ACID WHOLE BLOOD 2022-12-15 [facility] 07:02:00 Medical Branch COMP. METABOLIC PANEL ([id number]) 2022-12-[address] [facility] [facility] 07:02:00 Medical Branch CBC WITH DIFF 2022-12-15 [facility] xa 07:02:00 Medical Branch LACTIC ACID WHOLE BLOOD 2022-12-15 [facility], [facility] 07:02:00 Medical Branch TROPONIN I 2022-12-15 [facility], [facility] xas 05:08:00 Medical Branch MRSA / MSSA SCREEN BY PCR, 2022-12-15 Tavo Nickerson [facility] NARES 05:08:00 Medical Branch TROPONIN I 2022-12-15 Liya [facility] xas 05:08:00 Medical Branch MRSA / MSSA SCREEN BY PCR, 2022-12-15 Tavo Nickerson [facility] NARES 05:08:00 Medical Branch EXTERNAL PROVIDER RECORDS 2022-12-15 Doctor Unassigned, [facility] 05:01:00 [place] [facility] EXTERNAL PROVIDER RECORDS 2022-12-15 Doctor Unassigned, [facility] 05:01:00 [place] [facility] POCT GLUCOSE (AUTOMATED) 2022-12-15 [facility] 04:59[facility]00 Medical Branch POCT GLUCOSE (AUTOMATED) 2022-12-15 Liya [facility] 04:59:00 Medical Branch XR FOOT 3+ VW RIGHT 2022-12-14 Sarahy Durán [facility] 23:40:41 Medical Branch XR FOOT 3+ VW RIGHT 2022-12-14 Sarahy Durán [facility] 23:40:41 Medical Branch NOTICE OF PRIVACY PRACTICES 2022-12-14 Doctor Unassigned, [facility] 23:30:56 [place] [facility] NOTICE OF PRIVACY PRACTICES 2022-12-14 Doctor Unassigned, [facility] 23:30:56 [place] [facility] CONSENT/REFUSAL FOR DIAGNOSIS 2022-12-14 Doctor Unassigned, [facility] 23:30:30 [place] [facility] CONSENT/REFUSAL FOR DIAGNOSIS 2022-12-14 Doctor Unassigned, [facility] 23:30:30 [place] [facility] ASSIGNMENT OF BENEFITS 2022-12-14 Doctor Unassigned, [facility] 23:30:08 [place] [facility] ASSIGNMENT OF BENEFITS 2022-12-14 Doctor Unassigned, [facility] 23:30:08 [place] [facility] CT ABDOMEN PELVIS WO CONTRAST 2022-12-14 aSrahy Durán [facility] 23:30:[address] ABDOMEN PELVIS WO CONTRAST 2022-12-14 Sarahy Durán [facility] 23:30:00 Medical Branch XR CHEST 1 VW 2022-12-14 [facility] 23:20:00 Medical Branch XR CHEST 1 VW 2022-12-14 Romi Durán Silvestre [facility] 23:20:00 Medical Branch HB ECG ROUTINE & RHYTHM STRIP 2022-12-14 [facility] 23:09:39 Medical [place] HB ECG ROUTINE & RHYTHM STRIP 2022-12-14 Luis Armando [facility] 23:09:39 [facility] POCT GLUCOSE (AUTOMATED) 2022-12-14 [facility] 22:56:00 Medical Branch POCT GLUCOSE (AUTOMATED) 2022-12-14 [facility] 22:56:00 Medical Branch LACTIC ACID WHOLE BLOOD 2022-12-14 Luis Armando [facility] 22:50:00 Medical Branch LACTIC ACID WHOLE BLOOD 2022-12-14 Luis Armando [facility] 22:50:00 Medical Branch LIPASE 2022-12-14 [facility] 22:49:00 Medical Branch MAGNESIUM 2022-12-14 [facility] 22:49:00 Medical Branch TROPONIN I 2022-12-14 [facility] 22:49:00 Medical Branch COMP. METABOLIC PANEL ([id number]) 2022-12-14 Sarahy Durán [facility] 22:49:00 Medical Branch CBC WITH DIFF 2022-12-14 Romi Durán Silvestre [facility] 22:49:00 Medical Branch N-TERMINAL PRO-BNP 2022-12-14 Sarahy Durán [facility] 22:49:00 Medical Branch BLOOD CULTURE WORKUP 2022-12-14 Sarahy Durán [facility] 22:49:00 Medical Branch BLOOD CULTURE WORKUP 2022-12-14 Sarahy Durán [facility] 22:49:00 Medical Branch GRAM POSITIVE BLOOD PATHOGENS 2022-12-14 Sydmartine [facility] DNA PROBE-AEROBIC 22:49:00 Medical Branch BLOOD CULTURE SCREEN 2022-12-14 [facility] 22:49:00 Medical Branch LIPASE 2022-12-14 [facility] 22:49:00 Medical Branch MAGNESIUM 2022-12-14 [facility] 22:49:00 Medical Branch TROPONIN I 2022-12-14 [facility] [place] 22:49:00 [facility] COMP. METABOLIC PANEL ([id number]) 2022-12-14 [facility] 22:49:00 Medical Branch CBC WITH DIFF 2022-12-14 [facility] 22:49:00 Medical Branch N-TERMINAL PRO-BNP 2022-12-14 [facility] 22:49:00 Medical Branch BLOOD CULTURE WORKUP 2022-12-14 [facility] 22:49:00 Medical Branch BLOOD CULTURE WORKUP 2022-12-14 [facility] 22:49:00 [facility] GRAM POSITIVE BLOOD PATHOGENS 2022-12-14 [facility] DNA PROBE-AEROBIC 22:49:00 Medical Branch BLOOD CULTURE SCREEN 2022-12-14 [facility] 22:49:00 [facility] POCT GLUCOSE (AUTOMATED) 2022-11-07 [place] [facility] 21:57:00 [facility] POCT GLUCOSE (AUTOMATED) 2022-11-07 [facility] 16:44:00 [facility] POCT GLUCOSE (AUTOMATED) 2022-11-07 [facility] 13:11:00 [facility] BASIC METABOLIC PANEL (NA, K, 2022-11-07 Zaire [facility] CL, CO2, GLUCOSE, BUN, 08:55:00 Medical B ran CREATININE, CA) CBC WITH DIFF 2022-11-07 Zaire [facility] 08:55:00 Medical Branch POCT GLUCOSE (AUTOMATED) 2022-11-06 [facility] 21:39:00 Medical Branch POCT GLUCOSE (AUTOMATED) 2022-11-06 [facility] 16:26:00 Medical Branch TROPONIN I 2022-11-06 [facility] 14:09:00 Medical Branch HEPATITIS B SURFACE ANTIBODY 2022-11-06 DamarisYamileth [facility] 14:09:00 Medical Branch HEPATITIS B SURFACE ANTIGEN 2022-11-06 [facility] 14:09:00 Medical Branch POCT GLUCOSE (AUTOMATED) 2022-11-06 [facility] 12:39:00 [facility] BASIC METABOLIC PANEL (NA, K, 2022-11-06 Shlomo [facility] CL, CO2, GLUCOSE, BUN, 08:56:00 [facility] ran CREATININE, CA) CBC WITH DIFF 2022-11-06 Shlomo [facility] 08:56:00 [facility] N-TERMINAL PRO-BNP 2022-11-06 [facility] 08:56:00 [facility] EXTERNAL PROVIDER RECORDS 2022-11-06 Doctor Unassigned, [facility] 05:01:00 [place] [facility] DISCLOSURE AND CONSENT, 2022-11-06 Doctor Unassigned, [facility] MEDICAL AND SURGICAL 05:01:00 [place] [facility] PROCEDURES POCT GLUCOSE (AUTOMATED) 2022-11-06 [facility] 01:40:00 [facility] POCT GLUCOSE (AUTOMATED) 2022-11-05 [facility] 22:02:00 Medical [place] POCT GLUCOSE (AUTOMATED) 2022-11-05 [facility] 16:39:00 [facility] TRANSTHORACIC ECHO (TTE) 2022-11-05 [facility]/ CONTRAST 14:33:00 [facility] POCT GLUCOSE (AUTOMATED) 2022-11-05 [place] [facility] 12:53:00 Medical Branch PHOSPHORUS 2022-11-05 Liya [facility] x[facility] 09:24:00 Medical Branch MAGNESIUM 2022-11-05 [facility], [facility] xa 09:24:00 [facility] TROPONIN I 2022-11-05 [facility], [facility] 09:24:00 [facility] COMP. METABOLIC PANEL ([id number]) 2022-11-05 [facility] Tavo [facility] 09:24:00 [facility] LIPID PANEL ([id number])(TOTAL 2022-11-05 [facility] CHOLESTEROL, TRIGLYCERIDES, 09:24:00 [facility] HDL) CBC WITH DIFF 2022-11-05 [facility] 09:24:00 [facility] N-TERMINAL PRO-BNP 2022-11-05 [facility], [facility] 09:24:00 [facility] TROPONIN I 2022-11-05 [facility] 02:39:00 [facility] BLOOD CULTURE SCREEN 2022-11-04 Katherin Persaud [facility] 21:48:00 [facility] RAPID INFLUENZA A/B 2022-11-04 Katherin Persaud [facility] 20:50:00 [facility] WOUND CULTURE 2022-11-04 Katherin Persaud [facility] 20:50:00 [facility] COVID-19 (ID NOW RAPID 2022-11-04 Katherin Persaud [facility] TESTING) 20:50:00 [facility] LAB ONLY COVID INTERPRETATION 2022-11-04 Katherin Persaud [facility] 20:50:00 [facility] XR CHEST 1 VW 2022-11-04 Katherin Persaud [facility]as 20:29:26 [facility] HB ECG ROUTINE & RHYTHM STRIP 2022-11-04 Katherin Persaud [facility] 19:39:09 [facility] PHOSPHORUS 2022-11-04 Katherin Persaud [facility] ex 19:31:00 [facility] CREATINE KINASE 2022-11-04 Katherin Persaud [facility] ex 19:31:00 [facility] MAGNESIUM 2022-11-04 Katherin Persaud [facility] 19:31:00 [facility] TROPONIN I 2022-11-04 Katherin Persaud [facility] ex 19:31:00 Medical Branch FREE T4 2022-11-04 [facility] 19:31:00 Medical Branch THYROID STIMULATING HORMONE 2022-11-04 [facility] 19:31:00 Medical Branch COMP. METABOLIC PANEL ([id number]) 2022-11-04 Katherin Persaud [facility] 19:31:00 Medical Branch CBC WITH DIFF 2022-11-04 Cori Katherin [facility] ex 19:31:00 Medical Branch GLYCOSYLATED HEMOGLOBIN (A1C) 2022-11-04 [facility] 19:31:00 Medical Branch URINALYSIS 2022-11-04 Katherin Persaud [facility] 19:31:00 Medical Branch N-TERMINAL PRO-BNP 2022-11-04 Katherin Persaud [facility] 19:31:00 Medical Branch FREE T3 2022-11-04 [facility] 19:31:00 Medical Branch LACTIC ACID WHOLE BLOOD 2022-11-04 Katherin Persaud [facility] 19:30:00 Medical Branch [id number] 2022-07-06 ACHKA [facility] 00:00:00 [facility] [id number] 2022-07-04 [facility]KA [facility] 00:00:00 [facility] [id number] 2022-07-01 [facility] 00:00:00 [facility] [id number] 2022-06-29 [facility]KA [facility] 00:00:00 [facility] [id number] 2022-06-28 [facility]KA [facility] 00:00:00 [facility] [id number] 2022-06-27 ALDMO [facility] 00:00:00 [facility] [id number] 2022-06-27 ALDMO [facility] 00:00:00 [facility] [id number] 2022-06-27 ALDMO [facility] 00:00:00 [facility] [id number] 2022-06-27 ACHKA [facility] 00:00:00 [facility] [id number] 2022-06-26 ALDMO [facility] 00:00:00 [facility] [id number] 2022-06-26 ALDMO [facility] 00:00:00 [facility] [id number] 2022-06-26 ALDMO [facility] 00:00:00 [facility] [id number] 2022-06-26 ALDMO [facility] 00:00:00 [facility] [id number] 2022-06-26 [facility]KA [facility] 00:00:00 [facility] [id number] 2022-06-24 [facility] 00:00:00 [facility] [id number] 2022-06-23 [facility] 00:00:00 [facility] [id number] 2022-06-22 [facility] 00:00:00 [facility] POC GLUCOSE 2022-04-26 Jose Becker [facility] pital 16:04:00 E. [place] AN ELECTIVE ENDOTRACHEAL 2022-04-26 Mariely De La Cruz [facility] 15:12:00 LAPAROSCOPIC REMOVAL OR 2022-04-26 Jose Becker [facility] REPOSITIONING OF PERITONEAL 14:56:00 E. DIALYSIS CATHETER ESTIMATED GFR 2022-04-26 Jose Becker [facility]ital 13:00:00 E. POC PANEL 2022-04-26 Jose Becker [facility]ital 13:00:00 E. POC GLUCOSE 2022-03-06 Jose Becker [facility]ital 16:00:00 E. SURGICAL PATHOLOGY REQUEST 2022-03-06 [facility] 15:28:00 E. POC GLUCOSE 2022-03-06 Jose Becker [facility] p[facility] 15:23:00 E. ANESTHESIA INTUBATION 2022-03-06 [place] [facility] 12:57:00 CHOLECYSTECTOMY, LAPAROSCOPIC 2022-03-06 [facility] 12:44:00 E. INSERTION, CATHETER, 2022-03-06 [facility]AL, 12:44:00 E. LAPAROSCOPIC ESTIMATED GFR 2022-03-06 Jose Becker [facility] pital 11:50:00 E. POC PANEL 2022-03-06 Jose Becker [facility] pital 11:50:00 E. BASIC METABOLIC PANEL 2022-03-06 [facility] 11:40:00 ESTIMATED GFR 2022-03-06 [facility] 11:40:00 CBC WITH PLATELET AND 2022-03-01 [facility] DIFFERENTIAL 18:18:00 HEMOGLOBIN A1C 2022-03-01 [facility] 18:18:00 PARTIAL THROMBOPLASTIN TIME 2022-03-01 [facility] (PTT) 18:18:00 PROTHROMBIN TIME WITH INR 2022-03-01 [facility] 18:18:00 REFERRAL- REQUEST/RESPONSE 2022-02-07 Doctor Unassigned, [facility] 05:01:00 [facility] ECG PRE/POST OP 2021-12-12 [facility] 20:54:02 CBC WITH PLATELET AND 2021-12-12 [facility] DIFFERENTIAL 20:25:00 HEMOGLOBIN A1C 2021-12-12 [facility] 20:25:00 TYPE AND SCREEN 2021-12-12 [facility] 20:25:00 PHACOEMULSIFICATION OF 2020-10-14 Aleisha [facility] CATARACT WITH INTRAOCULAR 13:33:00 [facility] LENS IMPLANT POCT GLUCOSE (AUTOMATED) 2020-10-14 Aleisha [facility] 12:38:00 [facility] POCT GLUCOSE(AGE >30DAYS) 2020-10-14 Anita Edwards [facility] 12:35:00 Medical Branch ASSIGNMENT OF BENEFITS 2020-10-12 Doctor Unassigned, [facility] 16:32:53 [facility] POCT GLUCOSE(AGE >30DAYS) 2020-04-01 Bora Skinner [facility] 12:03:00 Medical Branch ASSIGNMENT OF BENEFITS 2020-03-30 Doctor Unassigned, [facility] 16:01:28 [facility] NOTICE OF BILLING PRACTICES 2020-03-23 Doctor Unassigned, [facility] FOR MEDICARE PATIENTS 20:49:43 [facility] PATIENT FINANCIAL POLICY 2020-03-23 Doctor Unassigned, [facility] 20:49:19 [facility] NO SHOW OR MISSED APPOINTMENT 2020-03-23 Doctor Unassigned, [facility] POLICY ACKNOWLEDGEMENT 20:48:59 [facility] NOTICE OF PRIVACY PRACTICES 2020-03-23 Doctor Unassigned, [facility] 20:48:48 [facility] CONSENT/REFUSAL FOR DIAGNOSIS 2020-03-23 Doctor Unassigned, [facility] AND TREATMENT 20:48:30 [facility] ASSIGNMENT OF BENEFITS 2020-03-23 Doctor Unassigned, [facility] 20:48:19 [facility] PHYSICIAN ORDERS 2020-03-23 Doctor Unassigned, [facility] 05:01:00 [facility] Knee replacement<sup>2</sup> [facility] orial [place] [facility]<sup>1</sup> [facility] Planned Activity Planned Date [...] Medical Ce nter Vaccine (#1)] Future Scheduled 2023-03-09 Influenza Vaccine (#1) [facility] 00:[facility]00 [code = Influenza Medical Ce nter Vaccine (#1)] Future Scheduled 2023-03-04 Screening for [facility] Test 13:22:55 malignant neoplasm of colon (procedure) [code = 128728520] Future Scheduled 2023-03-04 Screening for [facility] Test 13:22:55 malignant neoplasm of colon (procedure) [code = 211060781] Future Scheduled 2023-03-04 Hepatitis C screening [facility] Test 13:22:55 (procedure) [code = 479354906] Future Scheduled 2023-03-04 BREAST CANCER [facility] Test 13:22:55 SCREENING [code = BREAST CANCER SCREENING] Future Scheduled 2023-03-04 Screening for [facility] Test 13:22:55 malignant neoplasm of colon (procedure) [code = 358318050] Future Scheduled 2023-03-04 Screening for [facility] Test 13:22:55 malignant neoplasm of colon (procedure) [code = 211198949] Future Scheduled 2023-03-04 [facility] 13:22:55 of 2) [code = SHINGLES VACCINES (1 of 2)] Future Scheduled 2023-03-04 65+ PNEUMOCOCCAL [facility] Test 13:22:55 VACCINE (3 - PCV) [code = 65+ PNEUMOCOCCAL VACCINE (3 - PCV)] Future Scheduled 2023-03-04 COVID-19 VACCINE (6 - [facility] Test 13:22:55 Pfizer series) [code = COVID-19 VACCINE (6 - Pfizer series)] Future Scheduled 2023-03-04 INFLUENZA VACCINE (#1) [facility] Test 13:22:55 [code = INFLUENZA VACCINE (#1)] Future Scheduled 2023-03-04 Screening for [facility] Test 13:22:55 malignant neoplasm of colon (procedure) [code = 795993667] Future Scheduled 2023-01-27 Screening for [facility] Test 15:11:15 malignant neoplasm of colon (procedure) [code = 001976840] Future Scheduled 2023-01-27 Screening for [facility] Test 15:11:15 malignant neoplasm of colon (procedure) [code = 777238370] Future Scheduled 2023-01-27 Screening for [facility] Test 15:11:15 malignant neoplasm of colon (procedure) [code = 372417278] Future Scheduled 2023-01-27 Hepatitis C screening [facility] Test 15:11:15 (procedure) [code = 195753000] Future Scheduled 2023-01-27 BREAST CANCER [facility] Test 15:11:15 SCREENING [code = BREAST CANCER SCREENING] Future Scheduled 2023-01-27 Screening for [facility] Test 15:11:15 malignant neoplasm of colon (procedure) [code = 193556610] Future Scheduled 2023-01-27 Screening for [facility] Test 15:11:15 malignant neoplasm of colon (procedure) [code = 054992225] Future Scheduled 2023-01-27 SHINGLES VACCINES (1 Met [facility] Test 15:11:15 of 2) [code = SHINGLES VACCINES (1 of 2)] Future Scheduled 2023-01-27 65+ [facility]CCAL [facility] 15:11:15 VACCINE (3 - PCV) [code = 65+ PNEUMOCOCCAL VACCINE (3 - PCV)] Future Scheduled 2023-01-27 COVID-19 VACCINE (6 - [facility] Test 15:11:15 Pfizer series) [code = COVID-19 VACCINE (6 - Pfizer series)] Future Scheduled 2023-01-27 INFLUENZA VACCINE [facility] Test 15:11:15 [code = INFLUENZA VACCINE] Future Scheduled 2022-11-03 Hepatitis C screening [facility] Test 07:38:23 (procedure) [code = 015652037] Future Scheduled 2022-11-03 SHINGLES VACCINES (1 [facility] Test 07:38:23 of 2) [code = SHINGLES VACCINES (1 of 2)] Future Scheduled 2022-11-03 BREAST CANCER [facility] Test 07:38:23 SCREENING [code = BREAST CANCER SCREENING] Future Scheduled 2022-11-03 COLONOSCOPY SCREENING [facility] Test 07:38:23 [code = COLONOSCOPY SCREENING] Future Scheduled 2022-11-03 65+ PNEUMOCOCCAL [facility] Test 07:38:23 VACCINE (3 - PCV) [code = 65+ PNEUMOCOCCAL VACCINE (3 - PCV)] Future Scheduled 2022-11-03 INFLUENZA VACCINE [facility] Test 07:38:23 [code = INFLUENZA VACCINE] Future Scheduled 2022-11-03 Hepatitis C screening [facility] Test 07:38:23 (procedure) [code = 925907529] Future Scheduled 2022-11-03 SHINGLES VACCINES (1 [facility] Test 07:38:23 of 2) [code = SHINGLES VACCINES (1 of 2)] Future Scheduled 2022-11-03 BREAST CANCER [facility] Test 07:38:23 SCREENING [code = BREAST CANCER SCREENING] Future Scheduled 2022-11-03 [facility] 07:38:23 [code = COLONOSCOPY SCREENING] Future Scheduled 2022-11-03 65+ [facility] 07:38:23 VACCINE (3 - PCV) [code = 65+ PNEUMOCOCCAL VACCINE (3 - PCV)] Future Scheduled 2022-11-03 INFLUENZA VACCINE [facility] Test 07:38:23 [code = INFLUENZA VACCINE] Future Scheduled 2022-10-09 Hepatitis C screening [facility] Test 14:08:24 (procedure) [code = 490892285] Future Scheduled 2022-10-09 SHINGLES VACCINES (1 [facility] Test 14:08:24 of 2) [code = SHINGLES VACCINES (1 of 2)] Future Scheduled 2022-10-09 BREAST CANCER [facility] Test 14:08:24 SCREENING [code = BREAST CANCER SCREENING] Future Scheduled 2022-10-09 COLONOSCOPY SCREENING [facility] Test 14:08:24 [code = COLONOSCOPY SCREENING] Future Scheduled 2022-10-09 65+ [facility]CCAL [facility] Test 14:08:24 VACCINE (3 - PCV) [code = 65+ PNEUMOCOCCAL VACCINE (3 - PCV)] Future Scheduled 2022-10-09 INFLUENZA VACCINE [facility] Test 14:08:24 [code = INFLUENZA VACCINE] Future Scheduled 2022-10-09 Hepatitis C screening [facility] Test 14:08:24 (procedure) [code = 307122180] Future Scheduled 2022-10-09 SHINGLES VACCINES (1 [facility] Test 14:08:24 of 2) [code = SHINGLES VACCINES (1 of 2)] Future Scheduled 2022-10-09 BREAST CANCER [facility] Test 14:08:24 SCREENING [code = BREAST CANCER SCREENING] Future Scheduled 2022-10-09 COLONOSCOPY SCREENING [facility] Test 14:08:24 [code = COLONOSCOPY SCREENING] Future Scheduled 2022-10-09 65+ [facility] 14:08:24 VACCINE (3 - PCV) [code = 65+ PNEUMOCOCCAL VACCINE (3 - PCV)] Future Scheduled 2022-10-09 INFLUENZA VACCINE [facility] Test 14:08:24 [code = INFLUENZA VACCINE] Future Scheduled 2022-10-09 Hepatitis C screening [facility] Test 14:08:24 (procedure) [code = 886120735] Future Scheduled 2022-10-09 SHINGLES VACCINES (1 Met [facility] Test 14:08:24 of 2) [code = SHINGLES VACCINES (1 of 2)] Future Scheduled 2022-10-09 BREAST CANCER [facility] Test 14:08:24 SCREENING [code = BREAST CANCER SCREENING] Future Scheduled 2022-10-09 COLONOSCOPY SCREENING [facility] Test 14:08:24 [code = COLONOSCOPY SCREENING] Future Scheduled 2022-10-09 65+ [facility]OCCAL [facility] 14:08:24 VACCINE (3 - PCV) [code = 65+ PNEUMOCOCCAL VACCINE (3 - PCV)] Future Scheduled 2022-10-09 INFLUENZA VACCINE [facility] Test 14:08:24 [code = INFLUENZA VACCINE] Future Scheduled 2022-09-25 Hepatitis C screening [facility] Test 16:30:22 (procedure) [code = 103733018] Future Scheduled 2022-09-25 SHINGLES VACCINES (1 Met [facility] Test 16:30:22 of 2) [code = SHINGLES VACCINES (1 of 2)] Future Scheduled 2022-09-25 BREAST CANCER [facility] Test 16:30:22 SCREENING [code = BREAST CANCER SCREENING] Future Scheduled 2022-09-25 COLONOSCOPY SCREENING [facility] Test 16:30:22 [code = COLONOSCOPY SCREENING] Future Scheduled 2022-09-25 65+ [facility]AL [facility] 16:30:22 VACCINE (3 - PCV) [code = 65+ PNEUMOCOCCAL VACCINE (3 - PCV)] Future Scheduled 2022-09-25 INFLUENZA VACCINE [facility] Test 16:30:22 [code = INFLUENZA VACCINE] [...] Future Scheduled 2022-06-22 Hepatitis C screening [facility] Test 00:46:40 (procedure) [code = 319412238] Future Scheduled 2022-06-22 SHINGLES VACCINES (1 Met [facility] Test 00:46:40 of 2) [code = SHINGLES VACCINES (1 of 2)] Future Scheduled 2022-06-22 BREAST CANCER [facility] Test 00:46:40 SCREENING [code = BREAST CANCER SCREENING] Future Scheduled 2022-06-22 COLONOSCOPY SCREENING [facility] Test 00:46:40 [code = COLONOSCOPY SCREENING] Future Scheduled 2022-06-22 65+ [facility]OCOCCAL [facility] 00:46:40 VACCINE (3 - PCV) [code = 65+ PNEUMOCOCCAL VACCINE (3 - PCV)] Future Scheduled 2022-06-22 [facility]INE [facility] 00:46:40 [code = INFLUENZA VACCINE] Future Scheduled 2022-06-22 Hepatitis C screening [facility] Test 00:46:40 (procedure) [code = 529810181] Future Scheduled 2022-06-22 SHINGLES VACCINES (1 Met [facility] Test 00:46:40 of 2) [code = SHINGLES VACCINES (1 of 2)] Future Scheduled 2022-06-22 BREAST CANCER [facility] Test 00:46:40 SCREENING [code = BREAST CANCER SCREENING] Future Scheduled 2022-06-22 COLONOSCOPY SCREENING [facility] Test 00:46:40 [code = COLONOSCOPY SCREENING] Future Scheduled 2022-06-22 65+ [facility]OCCAL [facility] 00:46:40 VACCINE (3 - PCV) [code = 65+ PNEUMOCOCCAL VACCINE (3 - PCV)] Future Scheduled 2022-06-22 [facility]ZA [facility]ACCINE [facility] 00:46:40 [code = INFLUENZA VACCINE] Future Scheduled 2022-06-22 [facility] C [facility] Test 00:46:40 (procedure) [code = 840979102] Future Scheduled 2022-06-22 SHINGLES VACCINES (1 Met [facility] Test 00:46:40 of 2) [code = SHINGLES VACCINES (1 of 2)] Future Scheduled 2022-06-22 BREAST CANCER [facility] Test 00:46:40 SCREENING [code = BREAST CANCER SCREENING] Future Scheduled 2022-06-22 COLONOSCOPY SCREENING [facility] Test 00:46:40 [code = COLONOSCOPY SCREENING] Future Scheduled 2022-06-22 65+ [facility]CCAL [facility] 00:46:40 VACCINE (3 - PCV) [code = 65+ PNEUMOCOCCAL VACCINE (3 - PCV)] Future Scheduled 2022-06-22 INFLUENZA VACCINE [facility] Test 00:46:40 [code = INFLUENZA VACCINE] Future Scheduled 2022-06-11 HEPATITIS B VACCINES [facility] Test 01:18:56 (1 of 3 - 3-dose series) [code = HEPATITIS B VACCINES (1 of 3 - 3-dose series)] Future Scheduled 2022-06-11 Hepatitis C screening [facility] Test 01:18:56 (procedure) [code = 751030541] Future Scheduled 2022-06-11 SHINGLES VACCINES (1 [facility] Test 01:18:56 of 2) [code = SHINGLES VACCINES (1 of 2)] Future Scheduled 2022-06-11 BREAST CANCER [facility] Test 01:18:56 SCREENING [code = BREAST CANCER SCREENING] Future Scheduled 2022-06-11 COLONOSCOPY SCREENING [facility] Test 01:18:56 [code = COLONOSCOPY SCREENING] Future [...] [facility] colon (procedure) [code = 807875431] Future Scheduled [address] [facility] 00:[facility]:00 malignant neoplasm of [facility] colon (procedure) [code = 157401659] Future Scheduled 1956 [facility] Future Scheduled [facility] [address] [facility] 00:00:00 malignant neoplasm of [facility] Center breast (procedure) [code = 217007314] Future Scheduled [address] [facility] 00:00:00 (combo) [code = CT Medical C enter Colonography (combo)] Future Scheduled [address] [facility] 00:00:00 malignant neoplasm of [facility] Center colon (procedure) [code = 673275063] Future Scheduled [address] [facility] 00:00:00 malignant neoplasm of [facility] Center colon (procedure) [code = 697438704] Future Scheduled 1956 DXA SCAN [code = DXA [facility] 00:00:00 SCAN] [facility] Future Scheduled [address] [facility] 00:00:00 malignant neoplasm of [facility] Center colon (procedure) [code = 342877373] Future Scheduled [address] [facility] 00:00:00 malignant neoplasm of [facility] Center colon (procedure) [code = 612383502] Future Scheduled 1956 [facility] [address] [facility] 00:00:00 malignant neoplasm of [facility] Center breast (procedure) [code = 106200699] Future Scheduled [address] [facility] 00:00:00 (combo) [code = CT Medical C enter Colonography (combo)] Future Scheduled [address] [facility] 00:00:00 malignant neoplasm of [facility] Center colon (procedure) [code = 285981267] Future Scheduled [address] [facility] 00:00:00 malignant neoplasm of [facility] Center colon (procedure) [code = 076446167] Future Scheduled 1956 DXA SCAN [code = DXA [facility] 00:00:00 SCAN] [facility] Future Scheduled [address] [facility] 00:00:00 malignant neoplasm of [facility] Center colon (procedure) [code = 458581992] Future Scheduled [address] [facility] 00:00:00 malignant neoplasm of [facility] Center colon (procedure) [code = 776169280] Future Scheduled 1956 [facility] Future Scheduled [address] [facility] 00:00:00 malignant neoplasm of [facility] Center breast (procedure) [code = 262093885] Future Scheduled [address] [facility] 00:00:00 (combo) [code = CT Medical C enter Colonography (combo)] Future Scheduled [address] [facility] 00:00:00 malignant neoplasm of [facility] colon (procedure) [code = 039506832] Future Scheduled [address] [facility] 00:00:00 malignant neoplasm of [facility] colon (procedure) [code = 880626589] Future Scheduled 1956 DXA SCAN [code = DXA [facility] 00:00:00 SCAN] [facility] Future Scheduled [address] [facility] 00:00:00 malignant neoplasm of [facility] Center colon (procedure) [code = 082658799] Future Scheduled [address] [facility] 00:00:00 malignant neoplasm of [facility] colon (procedure) [code = 331329484] Future Scheduled 1956 [facility]] [facility] Future Scheduled [address] [facility] 00:00:00 malignant neoplasm of [facility] Center breast (procedure) [code = 821933777] Future Scheduled [address] [facility] 00:00:00 (combo) [code = CT Medical C enter Colonography (combo)] Future Scheduled [address] [facility] 00:00:00 malignant neoplasm of [facility] colon (procedure) [code = 855553211] Future Scheduled [address] [facility] 00:00:00 malignant neoplasm of [facility] colon (procedure) [code = 914106447] Future Scheduled 1956 DXA SCAN [code = DXA [facility] 00:00:00 SCAN] [facility] Future Scheduled [address] [facility] 00:00:00 malignant neoplasm of [facility] Center colon (procedure) [code = 857777514] Future Scheduled [address] [facility] 00:00:00 malignant neoplasm of [facility] Center colon (procedure) [code = 912941490] Future Scheduled 1956 [facility]] [facility] Future Scheduled [address] [facility] 00:00:00 malignant neoplasm of [facility] breast (procedure) [code = 146441366] Future Scheduled [address] [facility] 00:00:00 (combo) [code = CT Medical C enter Colonography (combo)] Future Scheduled [address] [facility] 00:00:00 malignant neoplasm of [facility] colon (procedure) [code = 229432253] Future Scheduled [address] [facility] 00:00:00 malignant neoplasm of [facility] colon (procedure) [code = 156803663] Future Scheduled 1956 DXA SCAN [code = DXA [facility] 00:00:00 SCAN] [facility] Future Scheduled [address] [facility] 00:00:00 malignant neoplasm of [facility] Center colon (procedure) [code = 529812582] Future Scheduled [address] [facility] 00:00:00 malignant neoplasm of [facility] Center colon (procedure) [code = 590422352] Future Scheduled 1956 [facility] [address] [facility] 00:00:00 malignant neoplasm of [facility] breast (procedure) [code = 804591657] Future Scheduled [address] [facility] 00:00:00 malignant neoplasm of [facility] breast (procedure) [code = 046691527] Future Scheduled [address] [facility] 00:00:00 (combo) [code = CT Medical C enter Colonography (combo)] Future Scheduled [address] [facility] 00:00:00 malignant neoplasm of [facility] Center colon (procedure) [code = 467781832] Future Scheduled [address] [facility] 00:00:00 malignant neoplasm of [facility] colon (procedure) [code = 247698498] Future Scheduled 1956 DXA SCAN [code = DXA [facility] 00:00:00 SCAN] [facility] Future Scheduled [address] [facility] 00:00:00 malignant neoplasm of [facility] colon (procedure) [code = 717405394] Future Scheduled [address] [facility] 00:00:00 malignant neoplasm of [facility] colon (procedure) [code = 248571599] Future Scheduled 1956 [facility] [address] [facility] 00:00:00 (combo) [code = CT Medical C enter Colonography (combo)] Future Scheduled [address] [facility] 00:00:00 malignant neoplasm of [facility] Center breast (procedure) [code = 346374906] Future Scheduled [address] [facility] 00:00:00 (combo) [code = CT Medical C enter Colonography (combo)] Future Scheduled [address] [facility] 00:00:00 malignant neoplasm of [facility] colon (procedure) [code = 730864096] Future Scheduled [address] [facility] 00:00:00 malignant neoplasm of [facility] colon (procedure) [code = 031729779] Future Scheduled [address] [facility] 00:00:00 malignant neoplasm of [facility] colon (procedure) [code = 593265822] Future Scheduled 1956 DXA SCAN [code = DXA [facility] 00:00:00 SCAN] [facility] Future Scheduled [address] [facility] 00:00:00 malignant neoplasm of [facility] colon (procedure) [code = 500450167] Future Scheduled [address] [facility] 00:00:00 malignant neoplasm of [facility] colon (procedure) [code = 987682167] Future Scheduled 1956 [facility] [address] [facility] 00:00:00 malignant neoplasm of [facility] colon (procedure) [code = 651178085] Future Scheduled [address] [facility] 00:00:00 malignant [facility]oplasm [facility] breast (procedure) [code = 241536213] Future Scheduled [address] [facility] 00:00:00 (combo) [code = CT Medical C enter Colonography (combo)] Future Scheduled [address] [facility] 00:00:00 malignant neoplasm of [facility] colon (procedure) [code = 067855129] Future Scheduled [address] [facility] 00:00:00 malignant neoplasm [facility] colon (procedure) [code = 244861568] Future Scheduled 1956 DXA SCAN [code = DXA [facility] 00:00:00 SCAN] [facility] Future Scheduled 1956 DXA SCAN [code = DXA [facility] 00:00:00 SCAN] [facility] Future Scheduled [address] [facility] 00:00:00 malignant [facility] colon (procedure) [code = 351757912] Future Scheduled [address] [facility] 00:00:00 [facility] colon (procedure) [code = 753566206] Future Scheduled 1956 [facility]] [facility] Future Scheduled [address] [facility] 00:00:00 [facility] colon (procedure) [code = 159132664] Future Scheduled [address] [facility] 00:00:00 [facility] breast (procedure) [code = 325375295] Future Scheduled [address] [facility] 00:00:00 (combo) [code = CT Medical C enter Colonography (combo)] Future Scheduled [address] [facility] colon (procedure) [code = 329462939] Future Scheduled [address] [facility]00 [facility] colon (procedure) [code = 671929103] Future Scheduled 1956 DXA SCAN [code = DXA [facility] 00:00:00 SCAN] [facility] Future Scheduled [address] [facility] 00:[facility]00 malignant ne[facility] colon (procedure) [code = 084933625] Future Scheduled [address] [facility] 00:[facility]:00 malignant [facility] colon (procedure) [code = 937846658] Future Scheduled [address] [facility] 00:[facility]:00 malignant [facility] colon (procedure) [code = 779432827] Future Scheduled 1956 Sigmoidoscopy [facility]code = [facility] Future Scheduled [address] [facility] 00:[facility]:00 malignant ne[facility] breast (procedure) [code = 916453261] Future Scheduled [address] [facility] 00:00:00 (combo) [code = CT Medical C enter Colonography (combo)] Future Scheduled [address] [facility] 00:[facility]:00 malignant [facility] colon (procedure) [code = 950741434] Future Scheduled [address] [facility] 00:00:00 malignant ne[facility] colon (procedure) [code = 449738196] Future Scheduled 1956 DXA SCAN [code = DXA [facility] 00:00:00 SCAN] [facility] Encounters Start End Encounter Admission Attending Care Care Encounter Source Date/Time Date/Time Type Type Clinicians Facility Department ID 2023-01-27 [facility] [id number] [facility] 00:00:00 Encounter [facility] 2022-11-13 Outpatient 3 [id number] ENCPL CRD [id number] [facility] 15:05:25 [facility] [place] 2022-11-08 Outpatient 3 [id number] ENCPL CRD [id number] [facility] 09:30:23 0503 [facility] [place] 2022-11-07 Outpatient 3 [id number] ENCPL REF [id number] [facility] 21:38:12 0502 [facility] [place] 2022-08-14 Outpatient David STLMLC STLMLC [id number] Common 07:43:01 Dann [id number] [facility] 2022-08-04 Outpatient Hernandez, STLMLC STLMLC [id number] Common 13:26:01 Dann [id number] [facility] 2022-08-03 Outpatient Hernandez, STLMLC STLMLC [id number] Common 14:53:01 Dann [facility] 2022-07-25 Outpatient Hernandez, STLMLC STLMLC [id number] Common 15:59:02 Dann 79747 [facility] 2022-07-24 Outpatient Hernandez, STLMLC STLMLC [id number] Common 07:39:00 Dann 03620 [facility] 2022-07-19 Outpatient Hernandez, STLMLC STLMLC [id number] Common 08:46:01 Dann 73807 [facility] 2022-07-15 Inpatient AR Schmid, JUSTINECL ADMI [id number] [facility] 11:05:00 [place] [facility] 2022-06-20 [facility] [id number] [facility] 00:00:00 [facility] 2022-06-20 [facility] [id number] [facility] 00:00:00 [facility] 2022-06-15 Outpatient Hernandez, STLMLC STLMLC [id number] Common 08:26:02 Dann 90932 [facility] 2022-05-25 Outpatient Hernandez, STLMLC STLMLC [id number] Common 11:25:01 Dann [facility] 2022-02-27 Outpatient Hernandez, STLMLC STLMLC [id number] Common 10:42:02 Dann [facility] 2022-02-03 Outpatient Myrick, STLMLC STLMLC [id number] Common 12:12:00 Avnee [facility] 2022-01-31 Outpatient Myrick, STLMLC STLMLC [id number] Common 12:38:00 Avnee [facility] 2021-12-02 Outpatient Myrick, STLMLC STLC [id number] Common 15:52:01 Avnee [facility] 2021-12-01 Outpatient Myrick, STLMLC STLMLC [id number] Common 10:24:03 Avnee [facility] 2021-11-21 Outpatient Myrick, STLMLC STLC [id number] Common 10:05:12 Avnee [facility] 2021-11-08 Outpatient Myrick, STLMLC STLC [id number] Common 08:37:01 Avnee [facility] 2021-11-04 Outpatient Myrick, STLMLC STLC [id number] Common 14:15:04 Avnee [facility] 2021-10-31 Outpatient Alexandra [facility] [id number] Common 09:40:02 [facility] 2021-08-04 Outpatient 3 [id number] ENCPL REF [id number] [facility] 13:44:15 0117 Health Re[facility]ation [facility] d 2021-08-04 Outpatient 3 [id number] ENCPL REF [id number] [facility] 13:21:20 1122 [facility] [place] 2021-05-08 Outpatient Estevan MORAES [facility] OPH [id number] Univers 08:53:46 FAUSTO adam [facility] 2021-05-06 Outpatient Estevan MORAES [facility] ECTOR [id number] Univers 18:47:42 FAUSTO agus [facility] 2022-12-26 2022-12-26 Transition JENNY Yang 1.2.840.114 [id number] Univers 00:00:00 00:00:00 of Care Ivan [place] 350.1.13.10 [id number] [address] 2022-12-14 2022-12-22 Inpatient Aguila URBAN MOEBENEZER NIMCO [id number] Univers 17:38:00 17:36:00 [place] itagus [facility] 2022-12-14 2022-12-22 Hospital Sarahy Durán [facility] 1.2.8 40.114 [id number] Univers 17:38:00 17:36:00 Encounter Tavo Nickerson GREG 350.1.13.10 ity of [facility] 4.2.7.2.686 [place] [id number] [place] [id number] [place] 2022-12-21 2022-12-21 Surgery [facility] 1.2.840.114 [id number] Univers 14:20:00 15:56:00 Leyla RIOS 350.1.13.10 [facility] 4.2.7.2.[place]ICAL [id number] [facility] [address] 2022-11-08 2022-11-08 Transition JENNY Ruiz 1.2.840.114 [id number] Univers 00:00:00 00:00:00 of Danish Garciaet SALVATORE 350.1.13.10 it y of [place] [id number] [facility] [address] 2022-11-04 2022-11-07 Outpatient X RAJNI [facility] NIMCO [id number] Univers 13:24:00 17:38:00 [place] adam [facility] 2022-11-04 2022-11-07 Emergency RamboKatherin olson [facility] 1.2.840 .114 [id number] Univers 13:24:00 17:38:00 [place] Urban 350.1.13.10 ity of [place] [id number] [facility] [address] 2022-08-15 2022-08-15 OFFICE STLMLC STLMLC [id number] Co mmon 00:00:00 00:00:00 VISIT Spirit ESTAB PT - CHI LEVEL 4 [facility] 2022-07-26 2022-07-26 (TEL) STLMLC STLMLC [id number] Co mmon 00:00:00 00:00:00 Spirit - CHI [facility] 2022-07-13 2022-07-13 (TEL) STLMLC STLMLC [id number] Co mmon 00:00:00 00:00:00 [facility] 2022-06-22 2022-07-07 Inpatient Adonis Wilkins [facility] MEDI.01 G001 [id number] [facility] 09:01:00 17:11:00 00 [facility] 2022-06-08 2022-06-08 (TEL) STLMLC STLMLC [id number] Co mmon 00:00:00 00:00:00 [facility] 2022-05-31 2022-05-31 (TEL) STLMLC STLMLC [id number] Co mmon 00:00:00 00:00:00 [facility] 2022-04-26 2022-04-26 [facility], 1.2.840.1 [id number] 21 [id number] Methodi 06:55:00 12:55:00 Encounter Jose Keller 81826.1.[address] 3.430.2.7 Hospit a .3.255428 l .8 2022-04-26 2022-04-26 [facility], 1.2.840.1 [id number] 21 [id number] Methodi 06:55:00 12:55:00 Encounter Jose Luevano. 46225.1.[address] 3.430.2.7 Hospit a .3.622828 l .8 2022-04-26 2022-04-26 Anesthesia Reji Waldrop 1.2.840.1 1 [id number] Methodi 09:56:00 11:03:00 Event Ce Knutson 53166.1.[address] 3.430.2.7 Hospit a .3.700573 l .8 2022-04-26 2022-04-26 Anesthesia Reji Waldrop 1.2.840.1 1 [id number] Methodi 09:56:00 11:03:00 Event Ce Knutson 33294.1.[address] 3.430.2.7 Hospit a .3.963294 l .8 2022-04-26 2022-04-26 Surgery Oppermann, 1.2.840.1 [id number] 332 [id number] Methodi 09:15:00 10:45:00 Jose Luevano. 09339.1.1 677 s t 3.430.2.7 Hospit a .3.462713 l .8 2022-04-26 2022-04-26 Surgery Oppermann, 1.2.840.1 [id number] 625 [id number] Methodi 09:15:00 10:45:00 Jose Luevano. 79132.1.1 677 s t 3.430.2.7 Hospit a .3.825118 l .8 2022-04-26 2022-04-26 Travel 1.2.840.1 1.2.521.619 9274 838332 Methodi 00:00:00 00:00:[address] 3.430.2.7 0.2.7.3.698 Ho spita .3.275132 084.8 l .8 2022-04-26 2022-04-26 Travel 1.2.840.1 1.2.909.362 1546 773379 Methodi 00:00:00 00:00:[address] 3.430.2.7 0.2.7.3.698 Ho spita .3.353139 084.8 l .8 2022-04-24 2022-04-24 Travel 1.2.840.1 1.2.684.875 5686 134723 Methodi 00:00:00 00:00:[address] 3.430.2.7 0.2.7.3.698 Ho spita .3.282209 084.8 l .8 2022-04-24 2022-04-24 Travel 1.2.840.1 1.2.647.835 5821 786908 Methodi 00:00:00 00:00:[address] 3.430.2.7 0.2.7.3.698 spita .3.463121 084.8 l .8 2022-04-21 2022-04-21 Prep for Oppermann, 1.2.840.1 [id number] Methodi 00:00:00 00:00:00 Surgery Jose E. 20943.1.1 940 s t 3.430.2.7 Hospit a .3.219162 l .8 2022-04-21 2022-04-21 Orders Oppermann, 1.2.840.1 [id number] 011 [id number] Methodi 00:00:00 00:00:00 Only Jose E. 33220.1.1 613 s t 3.430.2.7 Hospit a .3.733716 l .8 2022-04-21 2022-04-21 Prep for Oppermann, 1.2.840.1 [id number] Methodi 00:00:00 00:00:00 Surgery Jose E. 46827.1.1 940 s t 3.430.2.7 Hospit a .3.815164 l .8 2022-04-21 2022-04-21 Orders Oppermann, 1.2.840.1 [id number] 963 [id number] Methodi 00:00:00 00:00:00 Only Jose E. 81900.1.1 613 s t 3.430.2.7 Hospit a .3.498279 l .8 2022-04-05 2022-04-05 Outpatient Estevan IVERSON [facility] [id number] Univers 15:00:00 15:00:00 CARSON adam [facility] 2022-03-21 2022-03-21 Office Oppermann, 1.2.840.1 [id number] 046 [id number] Methodi 11:30:00 12:00:24 Visit Jose E. 07550.1.1 407 s t 3.430.2.7 Hospit a .3.270463 l .8 2022-03-21 2022-03-21 Office Oppermann, 1.2.840.1 [id number] 968 6033540 Methodi 11:30:00 12:00:24 Visit Jose Keller 52752.1.1 407 s t 3.430.2.7 Hospit a .3.095531 l .8 2022-03-21 2022-03-21 Travel 1.2.840.1 1.2.972.324 4462 781121 Methodi 00:00:00 00:00:[address] 3.430.2.7 0.2.7.3.698 Ho spita .3.750629 084.8 l .8 2022-03-21 2022-03-21 Travel 1.2.840.1 1.2.629.551 0691 832973 Methodi 00:00:00 00:00:[address] 3.430.2.7 0.2.7.3.698 Ho spita .3.645766 084.8 l .8 2022-03-15 2022-03-15 [facility] [id number] Univers 10:00:00 10:00:00 CARSON adam [facility] 2022-03-14 2022-03-14 (TEL) STLMLC STLC [id number] Co mmon 00:00:00 00:00:00 [facility] 2022-03-06 2022-03-06 [facility], 1.2.840.1 [id number] 21 [id number] Methodi 05:46:00 12:05:00 Encounter Jose Keller 15996.1.[address] 3.430.2.7 Hospit a .3.223428 l .8 2022-03-06 2022-03-06 [facility], 1.2.840.1 [id number] 21 [id number] Methodi 05:46:00 12:05:00 Encounter Jose LuevanoShaji 84997.1.[address] 3.430.2.7 Hospit a .3.160970 l .8 2022-03-06 2022-03-06 Anesthesia Jory Santoro 1.2.840. 1 [id number] Methodi 07:44:00 09:46:00 Event Corrina Cavanaugh 05097.1.[address] 3.430.2.7 Hospit a .3.263435 l .8 2022-03-06 2022-03-06 Anesthesia Jory Santoro 1.2.840. 1 [id number] Methodi 07:44:00 09:46:00 Event Corrina Cavanaugh 91450.1.[address] 3.430.2.7 Hospit a .3.131080 l .8 2022-03-06 2022-03-06 Surgery [facility], 1.2.840.1 [id number] 167 [id number] Methodi 07:45:00 09:05:00 Jose E. 10542.1.1 269 s t 3.430.2.7 Hospit a .3.091031 l .8 2022-03-06 2022-03-06 Surgery [facility], 1.2.840.1 [id number] 497 6081522 Methodi 07:45:00 09:05:00 Jose E. 34088.1.1 269 s t 3.430.2.7 Hospit a .3.634674 l .8 2022-03-01 2022-03-01 Pre-Admiss [facility], 1.2.840.1 [id number] Methodi 13:00:00 14:00:00 ion Jose E. 21452.1.1 998 s t Testing 3.430.2.7 Hospit a .3.622233 l .8 2022-03-01 2022-03-01 Travel 1.2.840.1 1.2.020.777 9333 724069 Methodi 00:00:00 00:00:[address] 3.430.2.7 0.2.7.3.698 Ho spita .3.914432 084.8 l .8 2022-02-27 2022-02-27 [facility] [id number] Common 00:00:00 00:00:00 MCR Spirit WELLNESS - CHI VISIT [facility] 2022-02-27 2022-02-27 OFFICE STLMLC STLMLC [id number] Co mmon 00:00:00 00:00:00 VISIT Spirit ESTAB PT - CHI LEVEL 4 [facility] 2022-02-27 2022-02-27 (TEL) STLMLC STLMLC [id number] Co mmon 00:00:00 00:00:00 [facility] 2022-02-07 2022-02-07 Orders Doctor ROSELIA 1.2.840.114 [id number] Univers 00:00:00 00:00:00 Only Unassigned, CINDY 350.1.13.10 ity of [place] [facility] 4.2.7.2.686 [place] [id number] [place] [address] [address] 2022-02-02 2022-02-02 (TEL) STLC STLMLC [id number] Co mmon 00:00:00 00:00:00 [facility] 2022-01-31 2022-01-31 Travel 1.2.840.1 1.2.814.587 0920 065413 Methodi 00:00:00 00:00:[address] 3.430.2.7 0.2.7.3.698 Ho spita .3.563538 084.8 l .8 2022-01-27 2022-01-27 (TEL) STLMLC STLMLC [id number] Co mmon 00:00:00 00:00:00 [facility] 2021-12-30 2021-12-30 (TEL) STLMLC STLMLC [id number] Co mmon 00:00:00 00:00:00 [facility] 2021-12-29 2021-12-29 (TEL) STLMLC STLMLC [id number] Co mmon 00:00:00 00:00:00 [facility] 2021-12-19 2021-12-19 (TEL) STLMLC STLMLC [id number] Co mmon 00:00:00 00:00:00 [facility] 2021-12-13 2021-12-13 (TEL) STLMLC STLMLC [id number] Co mmon 00:00:00 00:00:00 [facility] 2021-12-12 2021-12-12 Pre-Admiss Eugenio, 1.2.840.1 [id number] [id number] Methodi 15:00:00 16:00:00 ion Jose Keller 41130.1.1 317 s t Testing 3.430.2.7 Hospit a .3.522797 l .8 2021-12-12 2021-12-12 Travel 1.2.840.1 1.2.283.189 0563 878149 Methodi 00:00:00 00:00:[address] 3.430.2.7 0.2.7.3.698 Ho spita .3.695292 084.8 l .8 2021-12-08 2021-12-08 (TEL) STLMLC STLMLC [id number] Co mmon 00:00:00 00:00:00 [facility] 2021-12-01 2021-12-01 (TEL) STLMLC STLMLC [id number] Co mmon 00:00:00 00:00:00 [facility] 2021-11-30 2021-11-30 (TEL) STLMLC STLMLC [id number] Co mmon 00:00:00 00:00:00 [facility] 2021-11-25 2021-11-25 (TEL) STLMLC STLMLC [id number] Co mmon 00:00:00 00:00:00 [facility] 2021-11-21 2021-11-21 (TEL) STLMLC STLMLC [id number] Co mmon 00:00:00 00:00:00 [facility] 2021-11-18 2021-11-18 (TEL) STLMLC STLMLC [id number] Co mmon 00:00:00 00:00:00 [facility] 2021-11-15 2021-11-15 Office O[place]aul, 1.2.840.1 [id number] 096 [id number] Methodi 13:00:00 14:01:57 Visit Jose LuevanoShaji 77163.1.1 465 s t 3.430.2.7 Hospit a .3.314332 l .8 2021-11-15 2021-11-15 (TEL) STLMLC STLMLC [id number] Co mmon 00:00:00 00:00:00 [facility] 2021-11-15 2021-11-15 Prep for Allen, 1.2.840.1 [id number] 15440 24791 Methodi 00:00:00 00:00:00 Surgery Fumni P 43870.1.[address] 3.430.2.7 Hospit a .3.817119 l .8 2021-11-15 2021-11-15 Travel 1.2.840.1 1.2.789.119 1171 623036 Methodi 00:00:00 00:00:[address] 3.430.2.7 0.2.7.3.698 Ho spita .3.934996 084.8 l .8 2021-11-14 2021-11-14 (TEL) STLMLC STLMLC [id number] Co mmon 00:00:00 00:00:00 [facility] 2021-11-04 2021-11-04 (TEL) STLMLC STLMLC [id number] Co mmon 00:00:00 00:00:00 [facility] 2021-10-31 2021-10-31 (TEL) STLMLC STLMLC [id number] Co mmon 00:00:00 00:00:00 [facility] 2021-10-20 2021-10-20 Telephone Stephane, 1.2.840.1 [id number] 2100 149987 Methodi 00:00:00 00:00:[address] 3.430.2.7 Hospit a .3.653478 l .8 2021-10-052021-10-05 Documentat Chace, 1.2.840.1 [id number] 21 [id number] Methodi 00:00:00 00:00:00 [address] Ortiz 05830.1.[address] 3.430.2.7 Hospit a .3.145783 l .8 2021-09-22 2021-09-22 Travel 1.2.840.1 1.2.056.851 4222 628402 Methodi 00:00:00 00:00:[address] 3.430.2.7 0.2.7.3.698 Ho spita .3.221896 084.8 l .8 2021-08-23 2021-08-23 Ambulatory nullFlavo MNA 37539 22802 Memoria 14:15:00 14:15:00 Pre-Reg r Neurology 06 l Estelle [place] 2021-08-23 2021-08-23 Ambulatory nullFlavo MNA 10458 10703 Memoria 14:15:00 14:15:00 Pre-Reg r Neurology 06 l Lacassine [place] 2021-08-23 2021-08-23 Outpatient JAVED STEFANI [id number] Memoria 08:15:00 08:15:00 06 josy [place] 2021-08-23 2021-08-23 [id number] 08:15:00 08:15:00 Farhan Don 2021-07-12 2021-07-12 Ambulatory nullFlavo MNA 64574 02635 Memoria 14:15:00 14:15:00 Pre-Reg r Neurology 05 l Estelle Kleinann 2021-07-12 2021-07-12 Ambulatory nullFlavo MNA 61298 72642 Memoria 14:15:00 14:15:00 Pre-Reg r Neurology 05 l Lacassine [place] 2021-07-12 2021-07-12 [facility] 252 [id number] 08:15:00 08:15:00 Farhan Don 2021-06-14 2021-06-14 Telephone Courtney 1.2.840.1 [id number] 908 [id number] Methodi 00:00:00 00:00:[address] 3.430.2.7 Hospit a .3.170059 l .8 2021-06-01 2021-06-01 Outpatient MHIE IE [id number] 465 Memoria 09:00:00 09:00:00 05 josy Saucedo 2021-05-19 2021-05-19 Ambulatory nullFlavo MNA 37554 08017 Memoria 14:15:00 14:15:00 Pre-Reg r Neurology 04 l Estelle Saucedo 2021-05-19 2021-05-19 Ambulatory nullFlavo MNA 85641 38255 Memoria 14:15:00 14:15:00 Pre-Reg r Neurology 04 l Estelle Saucedo 2021-05-19 2021-05-19 [facility] [id number] 08:15:00 08:15:00 Farhan Mehdi oDn 2021-05-10 2021-05-10 Outpatient MHIE IE [id number] 465 Memoria 15:45:00 15:45:00 04 josy Saucedo 2021-03-31 2021-03-31 Ambulatory nullFlavo MNA 40462 06043 Memoria 13:15:00 13:15:00 Pre-Reg r Neurology 03 l Estelle Saucedo 2021-03-31 2021-03-31 Ambulatory nullFlavo MNA 33470 15649 Memoria 13:15:00 13:15:00 Pre-Reg r Neurology 03 l Estelle Kleinann 2021-03-31 2021-03-31 Outpatient MHIE ELIANA [id number] 465 Memoria 08:15:00 08:15:00 03 josy Saucedo 2021-03-31 2021-03-31 [facility] [id number] 08:15:00 08:15:00 Farhan Mary Anne Don 2021-02-23 2021-02-24 Outpatient nullFlavo MNA 57249 [id number] Memoria 20:00:00 04:59:59 r Neurology 02 l Estelle Kleinann 2021-02-23 2021-02-24 Outpatient nullFlavo MNA 63827 25348 Memoria 20:00:00 04:59:59 r Neurology 02 l Lacassinerich Saucedo 2021-02-23 2021-02-23 Outpatient ORLIN [facility] 373 [id number] 15:00:00 23:59:59 Farhan Don 2021-02-23 2021-02-23 Outpatient MHIE [facility] [id number] 15:00:00 15:00:00 02 l [place] 2020-10-14 2020-10-14 Surgery [facility] 1.2.840.114 [id number] 08:34:00 09:10:00 [place] 350.1.13.10 [place] 4.2.7.2.686 Surgical [id number] [place] [address] 2020-10-14 2020-10-14 Surgery Aleisha [facility] 1.2.840.[id number] [place] [address] 08:34:00 09:10:00 Fausto Rios 350.1.13.10 i ty of [place].2.[place] [id number] [address] 2020-10-12 2020-10-12 Electronics Technician Apprentice Jyoti, [facility] 1.2.840.114 [id number] 11:40:06 11:55:06 Visit Lab Main Greg 350.1.13.10 [place] 4.2.7.2.686 Professio [id number] [address] 2020-10-12 2020-10-12 Electronics Technician Apprentice Jyoti, [facility] Lab Main [facility] 1.2.8 40.114 [id number] [facility] 11:40:06 11:55:06 Visit AleishaFausto 350.1.1 3.10 ity of [place].2.[place] Profess[place] [id number] Ny dical [address] 2020-10-12 2020-10-12 Laboratory Only, [facility] 1.2.840.114 8 [id number] 11:34:36 11:49:36 Only Test [place] 350.1.13.10 [place] 4.2.7.2.686 [place] [id number] [facility] 2020-10-12 2020-10-12 Laboratory Only, [facility] Test [facility] 1.2.840. 114 [id number] Univers 11:34:36 11:49:36 Only Fausto Moraes [place] 350.1.1 3.10 ity of [place].2.[place] [id number] [facility] [address] 2020-10-12 2020-10-12 [facility] [id number] [facility] 10:45:00 10:45:00 FAUSTO adam [facility] 2020-10-12 2020-10-12 Orders Doctor VELOZ 1.2.840.114 [id number] 00:00:00 00:00:00 Only Unassigned, CINDY 350.1.13.10 [place] [facility] 4.2.7.2.686 [id number] 009 2020-10-12 2020-10-12 Orders Doctor ROSELIA 1.2.840.114 [id number] Univers 00:00:00 00:00:00 Only Unassigned, CINDY 350.1.13.10 ity of [place] [facility] 4.2.7.2.686 [place] as [phone] [facility] [address] 2020-05-13 2020-05-14 Outpatient SUSAN WHITE [facility] 021 [id number] [id number] [place] 00:00:00 00:00:[address] 2020-05-11 2020-05-11 Outpatient AMY [facility] [id number] [place] 00:00:00 00:00:00 IMRAN [address] 2020-04-01 2020-04-01 [facility] 1.2.840.114 [id number] 06:36:00 10:10:00 Encounter Fausto Rios 350.1.13.10 [place] 4.2.7.2.686 Surgical [id number] [place] [address] 2020-04-01 2020-04-01 [facility] 1.2.840.114 [id number] [facility] 06:36:00 10:10:00 Encounter Fausto Rios 350.1.13.10 [place] [id number] [address] 2020-04-01 2020-04-01 Anesthesia Demetrio Christensen [facility] 1.2.840.11 4 [id number] 08:01:00 08:33:00 [facility] 350.1.13.10 [place] 4.2.7.2.686 Surgical [id number] [place] 020 2020-04-01 2020-04-01 Anesthesia Demetrio Christensen [facility] 1.2.840.11 4 [id number] Univers 08:01:00 08:33:00 [facility] 350.1.13.10 [place] 4.2.7.2.686 [place] [id number] [facility] [address] 2020-03-31 2020-03-31 Outpatient R ALEISHA [facility] [id number] Univers 09:30:00 09:30:00 FAUSTO ity [facility] 2020-03-30 2020-03-30 Outpatient R [facility] [id number] Univers 12:45:00 12:45:00 ity [facility] 2020-03-30 2020-03-30 Laboratory Only, Adc Test [facility] 1.2.840. 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 Jyoti, Adc Lab Main [facility] 1.2.8 40.114 [id number] Univers 15:51:10 16:06:10 Visit Fausto Moraes 350.1.1 3.10 ity [place] 4.2.7.2.686 Jonelle Guevarachristina [id number] [place] [address] 2020-03-23 2020-03-23 Outpatient Estevan MORAES, [facility] [id number] Univers 16:00:00 16:00:00 FAUSTO adam [facility] 2020-03-23 2020-03-23 Outpatient AMY, [facility] 2100 [id number] [place] 00:00:00 00:00:00 CRAIGAN [address] 2020-03-23 2020-03-23 Outpatient WOJCIECHOWS [facility] 239 [id number] [place] 00:00:00 00:00:00 KI, [address] Results Test Description Test Time Test Comments Results Result Comments Source POCT GLUCOSE (AUTOMATED) 2022-12-22 16:45:56 Test Item Value Reference Range Interpretation Comme nts POCT GLU (test code = 5440017747) 137 mg/dL 70-110 H Lab Interpretation (test code = 22671-4) Abnormal [facility] GLUCOSE (AUTOMATED)2022-12-22 16:45:56 Test Item Value Reference Range Interpretation Comments POCT GLU (test code = 9369590979) 137 mg/dL 70-110 H Lab Interpretation (test code = Abnormal 13679-9) [facility] GLUCOSE (AUTOMATED)2022-12-22 11:07:25 Test Item Value Reference Range Interpretation Comments POCT GLU (test code = 3900787136) 97 mg/dL 70-110 Lab Interpretation (test code = Normal 89551-6) [facility] GLUCOSE (AUTOMATED)2022-12-22 11:07:25 Test Item Value Reference Range Interpretation Comments POCT GLU (test code = 5076276145) 97 mg/dL 70-110 Lab Interpretation (test code = Normal 14611-3) [facility] GLUCOSE (AUTOMATED)2022-12-22 05:06:33 Test Item Value Reference Range Interpretation Comments POCT GLU (test code = 4217800729) 117 mg/dL 70-110 H Lab Interpretation (test code = Abnormal 17068-3) [facility] GLUCOSE (AUTOMATED)2022-12-22 05:06:33 Test Item Value Reference Range Interpretation Comments POCT GLU (test code = 7689005982) 117 mg/dL 70-110 H Lab Interpretation (test code = Abnormal 56967-1) [facility] GLUCOSE (AUTOMATED)2022-12-21 23:17:30 Test Item Value Reference Range Interpretation Comments POCT GLU (test code = 5541642405) 77 mg/dL 70-110 Lab Interpretation (test code = Normal 94980-4) [facility] GLUCOSE (AUTOMATED)2022-12-21 23:17:30 Test Item Value Reference Range Interpretation Comments POCT GLU (test code = 3643295635) 77 mg/dL 70-110 Lab Interpretation (test code = Normal 30611-7) [facility] GLUCOSE (AUTOMATED)2022-12-21 17:17:55 Test Item Value Reference Range Interpretation Comments POCT GLU (test code = 6516712761) 120 mg/dL 70-110 H Lab Interpretation (test code = Abnormal 84582-2) [facility] GLUCOSE (AUTOMATED)2022-12-21 17:17:55 Test Item Value Reference Range Interpretation Comments POCT GLU (test code = 2194365820) 120 mg/dL 70-110 H Lab Interpretation (test code = Abnormal 65338-2) [facility] GLUCOSE (AUTOMATED)2022-12-21 11:10:25 Test Item Value Reference Range Interpretation Comments POCT GLU (test code = 1774868373) 114 mg/dL 70-110 H Lab Interpretation (test code = Abnormal 30550-1) [facility] GLUCOSE (AUTOMATED)2022-12-21 11:10:25 Test Item Value Reference Range Interpretation Comments POCT GLU (test code = 1976134544) 114 mg/dL 70-110 H Lab Interpretation (test code = Abnormal 87137-9) [facility] [id number] 11:01:49 Test Item Value Reference Range Interpretation Comments Blood Culture-Aerobic No organisms No growth Previo us (test code = 19457-7) isolated prelim inary verified result was Culture In Progress on 12/16/2022 at 09 01 CDTPrevious preliminary verified result was No growth a t 24 hours on 12/17/2022 at 06 01 CDTPrevious preliminary verified result was No growth a t 48 hours on 12/18/2022 at 06 01 CDTPrevious preliminary verified result was No growth a t 72 hours on 12/19/2022 at 06 CDT Blood No organisms No growth Previous Culture-Anaerobic isolated preliminar y (test code = 87675-3) verifi ed result was Culture In Progress on 12/16/2022 at 09 CDTPrevious preliminary verified result was No growth a t 24 hours on 12/17/2022 at 06 CDTPrevious preliminary verified result was No growth a t 48 hours on 12/18/2022 at 12 07 CDTPrevious preliminary verified result was No growth a t 72 hours on 12/19/2022 at 06 CDT Lab Interpretation Normal (test code = 14958-5) [facility] CULTURE [id number] 11:01:49 Test Item Value Reference Range Interpretation Comments Blood Culture-Aerobic No organisms No growth Previo us (test code = 87777-6) isolated prelim inary verified result was Culture In Progress on 12/16/2022 at 09 CDTPrevious preliminary verified result was No growth a t 24 hours on 12/17/2022 at 12 07 CDTPrevious preliminary verified result was No growth a t 48 hours on 12/18/2022 at 12 07 CDTPrevious preliminary verified result was No growth a t 72 hours on 12/19/2022 at 12 07 CDT Blood No organisms No growth Previous Culture-Anaerobic isolated preliminar y (test code = 15726-6) verifi ed result was Culture In Progress on 12/16/2022 at 09 CDTPrevious preliminary verified result was No growth a t 24 hours on 12/17/2022 at 12 07 CDTPrevious preliminary verified result was No growth a t 48 hours on 12/18/2022 at 12 07 CDTPrevious preliminary verified result was No growth a t 72 hours on 12/19/2022 at 06 CDT Lab Interpretation Normal (test code = 32854-6) [facility] GLUCOSE (AUTOMATED)2022-12-21 05:17:25 Test Item Value Reference Range Interpretation Comments POCT GLU (test code = 3484517863) 120 mg/dL 70-110 H Lab Interpretation (test code = Abnormal 82764-4) [facility] GLUCOSE (AUTOMATED)2022-12-21 05:17:25 Test Item Value Reference Range Interpretation Comments POCT GLU (test code = 9820693963) 120 mg/dL 70-110 H Lab Interpretation (test code = Abnormal 97927-7) [facility] GLUCOSE (AUTOMATED)2022-12-20 23:02:14 Test Item Value Reference Range Interpretation Comments POCT GLU (test code = 8061581591) 155 mg/dL 70-110 H Lab Interpretation (test code = Abnormal 64085-1) [facility] GLUCOSE (AUTOMATED)2022-12-20 23:02:14 Test Item Value Reference Range Interpretation Comments POCT GLU (test code = 2867780222) 155 mg/dL 70-110 H Lab Interpretation (test code = Abnormal 93006-1) [facility] GLUCOSE (AUTOMATED)2022-12-20 16:58:40 Test Item Value Reference Range Interpretation Comments POCT GLU (test code = 2951135320) 150 mg/dL 70-110 H Lab Interpretation (test code = Abnormal 16734-5) [facility] GLUCOSE (AUTOMATED)2022-12-20 16:58:40 Test Item Value Reference Range Interpretation Comments POCT GLU (test code = 5461762785) 150 mg/dL 70-110 H Lab Interpretation (test code = Abnormal 93529-2) [facility]2023-06-14 10:30:39 Test Item Value Reference Range Interpretation Comments MAGNESIUM (test code = 6339472355) 1.7 mg/dL 1.7-2.4 Lab Interpretation (test code = Normal 25600-8) [facility]2023-06-14 10:30:39 Test Item Value Reference Range Interpretation Comments MAGNESIUM (test code = 1428329935) 1.7 mg/dL 1.7-2.4 Lab Interpretation (test code = Normal 42513-5) [facility] METABOLIC PANEL (NA, K, CL, CO2, GLUCOSE, BUN, CREATININE, CA)2022-12-20 10:30:38 Test Item Value Reference Range Interpretation Comments NA (test code = 136 mmol/L 135-145 4761547567) K (test code = 4.1 mmol/L 3.5-5.0 8854938744) CL (test code = 101 mmol/L 98-108 0678290658) CO2 TOTAL (test code = 24 mmol/L 23-31 8448145345) AGAP (test code = 11 2-16 6880475764) BUN (test code = 46 mg/dL 7-23 H 6393240892) GLUCOSE (test code = 134 mg/dL 70-110 H 7656258691) CREATININE (test code = 4.18 mg/dL 0.50-1.04 H 6556221648) CALCIUM (test code = 8.5 mg/dL 8.6-10.6 L 8726931835) eGFR (test code = 10.6 mL/min/1.73m2 8771729999) BRAD (test code = BRAD) Association of [...] tests). Lab Interpretation Abnormal (test code = 45650-0) [facility] METABOLIC PANEL (NA, K, CL, CO2, GLUCOSE, BUN, CREATININE, CA)2022-12-20 10:30:38 Test Item Value Reference Range Interpretation Comments NA (test code = 136 mmol/L 135-145 1271221498) K (test code = 4.1 mmol/L 3.5-5.0 8465147478) CL (test code = 101 mmol/L 98-108 3818119571) CO2 TOTAL (test code = 24 mmol/L 23-31 0795651625) AGAP (test code = 11 2-16 5315751088) BUN (test code = 46 mg/dL 7-23 H 7023393744) GLUCOSE (test code = 134 mg/dL 70-110 H 8812044984) CREATININE (test code = 4.18 mg/dL 0.50-1.04 H 8147570005) CALCIUM (test code = 8.5 mg/dL 8.6-10.6 L 8757830609) eGFR (test code = 10.6 mL/min/1.73m2 1940042988) BRAD (test code = BRAD) Association of [...] tests). Lab Interpretation Abnormal (test code = 95451-5) [facility] (ALB,T.PRO,BILI T,BU/BC,ALT,AST,ALK PHOS)2022-12-20 10:30:18 Test Item Value Reference Range Interpretation Comments TOTAL BILI (test code = 9070713539) 0.5 mg/dL 0.1-1.1 BILI UNCON (test code = 4005824807) 0.0 mg/dL 0.1-1.1 L BILI CONJ (test code = 7090483537) 0.0 mg/dL 0.0-0.3 T PROTEIN (test code = 9709009368) 5.9 g/dL 6.3-8.2 L ALBUMIN (test code = 1172154239) 2.9 g/dL 3.5-5.0 L ALK PHOS (test code = 9500772051) 183 U/L 34-122 H ALTv (test code = 1742-6) 10 U/L 5-35 AST(SGOT) (test code = 9055383732) 46 U/L 13-40 H Lab Interpretation (test code = Abnormal 92190-6) [facility] 10:30:18 Test Item Value Reference Range Interpretation Comments PHOSPHORUS (test code = 8930841483) 4.4 mg/dL 2.5-5.0 Lab Interpretation (test code = Normal 34742-0) [facility]16462[facility] (ALB,T.PRO,BILI T,BU/BC,ALT,AST,ALK PHOS)2022-12-20 10:30:18 Test Item Value Reference Range Interpretation Comments TOTAL BILI (test code = 0645823489) 0.5 mg/dL 0.1-1.1 BILI UNCON (test code = 1155959443) 0.0 mg/dL 0.1-1.1 L BILI CONJ (test code = 6409619055) 0.0 mg/dL 0.0-0.3 T PROTEIN (test code = 0268062607) 5.9 g/dL 6.3-8.2 L ALBUMIN (test code = 0561525700) 2.9 g/dL 3.5-5.0 L ALK PHOS (test code = 5172059000) 183 U/L 34-122 H ALTv (test code = 1742-6) 10 U/L 5-35 AST(SGOT) (test code = 4811297437) 46 U/L 13-40 H Lab Interpretation (test code = Abnormal 29891-4) [facility] 10:30:18 Test Item Value Reference Range Interpretation Comments PHOSPHORUS (test code = 0318882466) 4.4 mg/dL 2.5-5.0 Lab Interpretation (test code = Normal 90336-7) [facility] WITH [id number] 10:01:54 Test Item Value Reference Range Interpretation Comments WBC (test code = 9.51 See_Comment [Automated 6690-2) message] The sy stem which generated this result transmitted reference range : 4.30 - 11.10 10*3/?L. The reference range was not used to interpret this result as normal/abnormal . RBC (test code = 2.60 See_Comment L [Automated 789-8) message] The sy [...] (test code = 51.4 fL 39.0-49.9 H 85505-7) RDW-CV (test code = 15.2 % 12.0-15.5 788-0) PLT (test code = 167 See_Comment [Automated 777-3) message] The sy stem which generated this result transmitted reference range : 166 - 358 10*3/ ?L. The reference r chikis was not used to interpret this result as normal/abnormal . MPV (test code = 9.5 fL 9.5-12.9 75138-5) NRBC/100 WBC (test 0.0 See_Comment [Automat ed code = 2796363260) message] The system which generated this result transmitted reference range : 0.0 - 10.0 /100 WBCs. The refer ence range was not u sed to interpret th is result as normal/abnormal . NRBC x10^3 (test code See_Comment [Auto mated = 5584686423) message] The s ystem which generated this result transmitted reference range : 10*3/?L. The reference range was not used to interpret this result as normal/abnormal . GRAN MAT (NEUT) % 76.9 % (test code = 770-8) IMM GRAN % (test code 1.10 % = 5151852622) LYMPH % (test code = 12.5 % 736-9) MONO % (test code = 6.6 % 5905-5) EOS % (test code = 2.7 % 713-8) BASO % (test code = 0.2 % 706-2) GRAN MAT x10^3(ANC) 7.31 10*3/uL 1.88-7.09 H (test code = 6272273173) IMM GRAN x10^3 (test 0.10 10*3/uL 0.00-0.06 H code = 4040894667) LYMPH x10^3 (test code 1.19 10*3/uL 1.32-3.29 L = 731-0) MONO x10^3 (test code 0.63 10*3/uL 0.33-0.92 = 742-7) EOS x10^3 (test code = 0.26 10*3/uL 0.03-0.39 711-2) BASO x10^3 (test code 0.01-0.07 = 704-7) Lab Interpretation Abnormal (test code = 43037-0) [facility] WITH [id number] 10:01:54 Test Item Value Reference Range Interpretation Comments WBC (test code = 9.51 See_Comment [Automated 6690-2) message] The sy stem which generated this result transmitted reference range : 4.30 - 11.10 10*3/?L. The reference range was not used to interpret this result as normal/abnormal . RBC (test code = 2.60 See_Comment L [Automated 789-8) message] The sy [...] (test code = 51.4 fL 39.0-49.9 H 33370-3) RDW-CV (test code = 15.2 % 12.0-15.5 788-0) PLT (test code = 167 See_Comment [Automated 777-3) message] The sy stem which generated this result transmitted reference range : 166 - 358 10*3/ ?L. The reference r chikis was not used to interpret this result as normal/abnormal . MPV (test code = 9.5 fL 9.5-12.9 77972-4) NRBC/100 WBC (test 0.0 See_Comment [Automat ed code = 8990302897) message] The system which generated this result transmitted reference range : 0.0 - 10.0 /100 WBCs. The refer ence range was not u sed to interpret th is result as normal/abnormal . NRBC x10^3 (test code See_Comment [Auto mated = 2730387534) message] The s ystem which generated this result transmitted reference range : 10*3/?L. The reference range was not used to interpret this result as normal/abnormal . GRAN MAT (NEUT) % 76.9 % (test code = 770-8) IMM GRAN % (test code 1.10 % = 3263419650) LYMPH % (test code = 12.5 % 736-9) MONO % (test code = 6.6 % 5905-5) EOS % (test code = 2.7 % 713-8) BASO % (test code = 0.2 % 706-2) GRAN MAT x10^3(ANC) 7.31 10*3/uL 1.88-7.09 H (test code = 2245315905) IMM GRAN x10^3 (test 0.10 10*3/uL 0.00-0.06 H code = 6961477127) LYMPH x10^3 (test code 1.19 10*3/uL 1.32-3.29 L = 731-0) MONO x10^3 (test code 0.63 10*3/uL 0.33-0.92 = 742-7) EOS x10^3 (test code = 0.26 10*3/uL 0.03-0.39 711-2) BASO x10^3 (test code 0.01-0.07 = 704-7) Lab Interpretation Abnormal (test code = 61895-6) [facility] GLUCOSE (AUTOMATED)2022-12-20 09:11:49 Test Item Value Reference Range Interpretation Comments POCT GLU (test code = 8810123029) 145 mg/dL 70-110 H Lab Interpretation (test code = Abnormal 92975-5) [facility] GLUCOSE (AUTOMATED)2022-12-20 09:11:49 Test Item Value Reference Range Interpretation Comments POCT GLU (test code = 3174972038) 145 mg/dL 70-110 H Lab Interpretation (test code = Abnormal 81444-3) [facility] GLUCOSE (AUTOMATED)2022-12-20 05:18:45 Test Item Value Reference Range Interpretation Comments POCT GLU (test code = 0279615244) 137 mg/dL 70-110 H Lab Interpretation (test code = Abnormal 51218-4) [facility] GLUCOSE (AUTOMATED)2022-12-20 05:18:45 Test Item Value Reference Range Interpretation Comments POCT GLU (test code = 5449838564) 137 mg/dL 70-110 H Lab Interpretation (test code = Abnormal 74592-8) [facility] GLUCOSE (AUTOMATED)2022-12-19 23:10:55 Test Item Value Reference Range Interpretation Comments POCT GLU (test code = 6604527870) 171 mg/dL 70-110 H Lab Interpretation (test code = Abnormal 17576-5) [facility] 23:10:55 Test Item Value Reference Range Interpretation Comments POCT GLU (test code = 1501814487) 171 mg/dL 70-110 H Lab Interpretation (test code = Abnormal 54388-7) [facility] GLUCOSE (AUTOMATED)2022-12-19 16:54:04 Test Item Value Reference Range Interpretation Comments POCT GLU (test code = 4025028406) 152 mg/dL 70-110 H Lab Interpretation (test code = Abnormal 39345-4) [facility] GLUCOSE (AUTOMATED)2022-12-19 16:54:04 Test Item Value Reference Range Interpretation Comments POCT GLU (test code = 5952498625) 152 mg/dL 70-110 H Lab Interpretation (test code = Abnormal 00994-1) [facility] GLUCOSE (AUTOMATED)2022-12-19 11:09:49 Test Item Value Reference Range Interpretation Comments POCT GLU (test code = 2717788125) 113 mg/dL 70-110 H Lab Interpretation (test code = Abnormal 21913-6) [facility] GLUCOSE (AUTOMATED)2022-12-19 11:09:49 Test Item Value Reference Range Interpretation Comments POCT GLU (test code = 8909359130) 113 mg/dL 70-110 H Lab Interpretation (test code = Abnormal 36384-7) [facility] GLUCOSE (AUTOMATED)2022-12-19 05:06:10 Test Item Value Reference Range Interpretation Comments POCT GLU (test code = 1057558158) 131 mg/dL 70-110 H Lab Interpretation (test code = Abnormal 24544-1) [facility] GLUCOSE (AUTOMATED)2022-12-19 05:06:10 Test Item Value Reference Range Interpretation Comments POCT GLU (test code = 0040198640) 131 mg/dL 70-110 H Lab Interpretation (test code = Abnormal 86676-3) [facility] GLUCOSE (AUTOMATED)2022-12-18 22:59:48 Test Item Value Reference Range Interpretation Comments POCT GLU (test code = 7993705840) 133 mg/dL 70-110 H Lab Interpretation (test code = Abnormal 32958-0) [facility]18 22:59:48 Test Item Value Reference Range Interpretation Comments POCT GLU (test code = 9569416037) 133 mg/dL 70-110 H Lab Interpretation (test code = Abnormal 94876-7) [facility] GLUCOSE (AUTOMATED)2022-12-18 16:36:14 Test Item Value Reference Range Interpretation Comments POCT GLU (test code = 4694505892) 171 mg/dL 70-110 H Lab Interpretation (test code = Abnormal 09968-0) [facility] GLUCOSE (AUTOMATED)2022-12-18 16:36:14 Test Item Value Reference Range Interpretation Comments POCT GLU (test code = 5844995810) 171 mg/dL 70-110 H Lab Interpretation (test code = Abnormal 82225-1) [facility] GLUCOSE (AUTOMATED)2022-12-18 10:49:33 Test Item Value Reference Range Interpretation Comments POCT GLU (test code = 0645328347) 116 mg/dL 70-110 H Lab Interpretation (test code = Abnormal 16349-7) [facility] GLUCOSE (AUTOMATED)2022-12-18 10:49:33 Test Item Value Reference Range Interpretation Comments POCT GLU (test code = 5553935698) 116 mg/dL 70-110 H Lab Interpretation (test code = Abnormal 06012-7) [facility] GLUCOSE (AUTOMATED)2022-12-18 05:43:21 Test Item Value Reference Range Interpretation Comments POCT GLU (test code = 2726078137) 119 mg/dL 70-110 H Lab Interpretation (test code = Abnormal 91094-1) [facility] GLUCOSE (AUTOMATED)2022-12-18 05:43:21 Test Item Value Reference Range Interpretation Comments POCT GLU (test code = 2802157959) 119 mg/dL 70-110 H Lab Interpretation (test code = Abnormal 02970-6) [facility] GLUCOSE (AUTOMATED)2022-12-17 23:28:43 Test Item Value Reference Range Interpretation Comments POCT GLU (test code = 5409754708) 102 mg/dL 70-110 Lab Interpretation (test code = Normal 64724-5) [facility] GLUCOSE (AUTOMATED)2022-12-17 23:28:43 Test Item Value Reference Range Interpretation Comments POCT GLU (test code = 1445871024) 102 mg/dL 70-110 Lab Interpretation (test code = Normal 67730-7) [facility] GLUCOSE (AUTOMATED)2022-12-17 17:00:09 Test Item Value Reference Range Interpretation Comments POCT GLU (test code = 0821410844) 135 mg/dL 70-110 H Lab Interpretation (test code = Abnormal 90549-3) [facility] GLUCOSE (AUTOMATED)2022-12-17 17:00:09 Test Item Value Reference Range Interpretation Comments POCT GLU (test code = 3108259640) 135 mg/dL 70-110 H Lab Interpretation (test code = Abnormal 75098-5) [facility] Culture - Peripheral # 13:40:27 Test Item Value Reference Range Interpretation Comments Blood Culture-Aerobic Culture positive. No growth AA P revious (test code = 55950-5) See Blood Culture p reliminary Workup for verified result additional was Culture In information. Progress on 12/15/2022 at 062 6 CDT Blood Culture positive. No growth AA Previous Culture-Anaerobic See Blood Culture preli minary (test code = 06658-9) Workup for verifi ed result additional was Culture In information. Progress on 12/14/2022 at 220 1 CDT Lab Interpretation Abnormal (test code = 90994-7) [facility] Culture - Peripheral # 13:40:27 Test Item Value Reference Range Interpretation Comments Blood Culture-Aerobic Culture positive. No growth AA P revious (test code = 16101-6) See Blood Culture p reliminary Workup for verified result additional was Culture In information. Progress on 12/15/2022 at 062 7 CDT Blood Culture positive. No growth AA Previous Culture-Anaerobic See Blood Culture preli minary (test code = 96046-9) Workup for verifi ed result additional was Culture In information. Progress on 12/14/2022 at 220 1 CDT Lab Interpretation Abnormal (test code = 60258-4) [id number] 13:40:27 Test Item Value Reference Range Interpretation Comments Blood Culture Staphylococcus aureus Organ ism identified Workup (test by DNA probeFor code = 600-7) susceptibility results, refer to culture # - [id number] Gram stain Isolated from aerobic This i s an appended (test code = bottle Gram positive report. These 664-3) cocci results have be en appended to a previously preliminary wesley ified report. [facility] Culture - Peripheral # 13:40:27 Test Item Value Reference Range Interpretation Comments Blood Culture-Aerobic Culture positive. No growth AA P revious (test code = 45412-4) See Blood Culture p reliminary Workup for verified result additional was Culture In information. Progress on 12/15/2022 at 062 6 CDT Blood Culture positive. No growth AA Previous Culture-Anaerobic See Blood Culture preli minary (test code = 52251-9) Workup for verifi ed result additional was Culture In information. Progress on 12/14/2022 at 220 1 CDT Lab Interpretation Abnormal (test code = 51448-9) [facility] Culture - Peripheral # 13:40:27 Test Item Value Reference Range Interpretation Comments Blood Culture-Aerobic Culture positive. No growth AA P revious (test code = 79379-2) See Blood Culture p reliminary Workup for verified result additional was Culture In information. Progress on 12/15/2022 at 062 7 CDT Blood Culture positive. No growth AA Previous Culture-Anaerobic See Blood Culture preli minary (test code = 12092-6) Workup for verifi ed result additional was Culture In information. Progress on 12/14/2022 at 220 1 CDT Lab Interpretation Abnormal (test code = 82945-7) [facility] CULTURE [id number] 13:40:27 Test Item Value Reference Range Interpretation Comments Blood Culture Staphylococcus aureus Organ ism identified Workup (test by DNA probeFor code = 600-7) susceptibility results, refer to culture # - [id number] Gram stain Isolated from aerobic This i s an appended (test code = bottle Gram positive report. These 664-3) cocci results have be en appended to a previously preliminary wesley ified report. [facility] GLUCOSE (AUTOMATED)2022-12-17 10:41:20 Test Item Value Reference Range Interpretation Comments POCT GLU (test code = 6085709799) 92 mg/dL 70-110 Lab Interpretation (test code = Normal 57585-7) [facility] GLUCOSE (AUTOMATED)2022-12-17 10:41:20 Test Item Value Reference Range Interpretation Comments POCT GLU (test code = 0320840825) 92 mg/dL 70-110 Lab Interpretation (test code = Normal 73097-7) [facility] GLUCOSE (AUTOMATED)2022-12-17 04:21:25 Test Item Value Reference Range Interpretation Comments POCT GLU (test code = 2352553103) 122 mg/dL 70-110 H Lab Interpretation (test code = Abnormal 63714-0) [facility] GLUCOSE (AUTOMATED)2022-12-17 04:21:25 Test Item Value Reference Range Interpretation Comments POCT GLU (test code = 7468348454) 122 mg/dL 70-110 H Lab Interpretation (test code = Abnormal 21530-2) [facility] GLUCOSE (AUTOMATED)2022-12-16 23:26:05 Test Item Value Reference Range Interpretation Comments POCT GLU (test code = 4980254415) 113 mg/dL 70-110 H Lab Interpretation (test code = Abnormal 93707-6) [facility] GLUCOSE (AUTOMATED)2022-12-16 23:26:05 Test Item Value Reference Range Interpretation Comments POCT GLU (test code = 7850837586) 113 mg/dL 70-110 H Lab Interpretation (test code = Abnormal 27322-7) [facility] GLUCOSE (AUTOMATED)2022-12-16 16:43:54 Test Item Value Reference Range Interpretation Comments POCT GLU (test code = 0187519593) 77 mg/dL 70-110 Lab Interpretation (test code = Normal 31297-4) [facility] GLUCOSE (AUTOMATED)2022-12-16 16:43:54 Test Item Value Reference Range Interpretation Comments POCT GLU (test code = 8710847750) 77 mg/dL 70-110 Lab Interpretation (test code = Normal 85938-4) [id number] 11:41:12 Test Item Value Reference Range Interpretation Comments TROPONIN I (test code = 0.106 ng/mL <=0.034 H 5849030953) BRAD (test code = BRAD) Reference (Normal) [...] biotin. Lab Interpretation Abnormal (test code = 65088-8) [facility] [id number] 11:41:12 Test Item Value Reference Range Interpretation Comments TROPONIN I (test code = 0.106 ng/mL <=0.034 H [id number]) BRAD (test code = BRAD) Reference (Normal) [...] biotin. Lab Interpretation Abnormal (test code = 84775-3) [facility] (NA, K, CL, CO2, GLUCOSE, BUN, CREATININE, CA)2022-12-16 11:40:31 Test Item Value Reference Range Interpretation Comments NA (test code = 139 mmol/L 135-145 8044670415) K (test code = 3.6 mmol/L 3.5-5.0 2327330092) CL (test code = 104 mmol/L 98-108 8286075355) CO2 TOTAL (test code = 25 mmol/L 23-31 9731493887) AGAP (test code = 10 2-16 9206309283) BUN (test code = 30 mg/dL 7-23 H 0577232310) GLUCOSE (test code = 83 mg/dL 70-110 5112741871) CREATININE (test code = 3.06 mg/dL 0.50-1.04 H 2614093452) CALCIUM (test code = 9.0 mg/dL 8.6-10.6 6229247381) eGFR (test code = 15.3 mL/min/1.73m2 0022068554) BRAD (test code = BRAD) Association of [...] tests). Lab Interpretation Abnormal (test code = 58992-1) [facility] METABOLIC PANEL (NA, K, CL, CO2, GLUCOSE, BUN, CREATININE, CA)2022-12-16 11:40:31 Test Item Value Reference Range Interpretation Comments NA (test code = 139 mmol/L 135-145 0846695374) K (test code = 3.6 mmol/L 3.5-5.0 2290323387) CL (test code = 104 mmol/L 98-108 3160851970) CO2 TOTAL (test code = 25 mmol/L 23-31 0003932412) AGAP (test code = 10 2-16 6372736198) BUN (test code = 30 mg/dL 7-23 H 8167646399) GLUCOSE (test code = 83 mg/dL 70-110 3101678189) CREATININE (test code = 3.06 mg/dL 0.50-1.04 H 5196169609) CALCIUM (test code = 9.0 mg/dL 8.6-10.6 7294865554) eGFR (test code = 15.3 mL/min/1.73m2 4029844257) BRAD (test code = BRAD) Association of [...] tests). Lab Interpretation Abnormal (test code = 61039-3) [facility] Random [id number] 11:40:16 Test Item Value Reference Range Interpretation Comments VANCO RANDOM (test code = 18.0 ug/mL 6346675949) [facility] [id number] 11:40:16 Test Item Value Reference Range Interpretation Comments VANCO RANDOM (test code = 18.0 ug/mL 4298973866) [facility]91726[facility] (ALB,T.PRO,BILI T,BU/BC,ALT,AST,ALK PHOS)2022-12-16 11:39:51 Test Item Value Reference Range Interpretation Comments TOTAL BILI (test code = 2407587785) 0.8 mg/dL 0.1-1.1 BILI UNCON (test code = 9599736218) 0.1 mg/dL 0.1-1.1 BILI CONJ (test code = 3549254564) 0.0 mg/dL 0.0-0.3 T PROTEIN (test code = 6058560092) 5.4 g/dL 6.3-8.2 L ALBUMIN (test code = 4904033850) 2.5 g/dL 3.5-5.0 L ALK PHOS (test code = 7641702684) 155 U/L 34-122 H ALTv (test code = 1742-6) 19 U/L 5-35 AST(SGOT) (test code = 2012610852) 30 U/L 13-40 Lab Interpretation (test code = Abnormal 19566-1) [facility]44740[facility] (ALB,T.PRO,BILI T,BU/BC,ALT,AST,ALK PHOS)2022-12-16 11:39:51 Test Item Value Reference Range Interpretation Comments TOTAL BILI (test code = 3418835901) 0.8 mg/dL 0.1-1.1 BILI UNCON (test code = 0530047516) 0.1 mg/dL 0.1-1.1 BILI CONJ (test code = 5542710527) 0.0 mg/dL 0.0-0.3 T PROTEIN (test code = 0828840259) 5.4 g/dL 6.3-8.2 L ALBUMIN (test code = 9861972795) 2.5 g/dL 3.5-5.0 L ALK PHOS (test code = 6842992248) 155 U/L 34-122 H ALTv (test code = 1742-6) 19 U/L 5-35 AST(SGOT) (test code = 2709890300) 30 U/L 13-40 Lab Interpretation (test code = Abnormal 26407-5) [facility] GLUCOSE (AUTOMATED)2022-12-16 11:15:55 Test Item Value Reference Range Interpretation Comments POCT GLU (test code = 8650585795) 94 mg/dL 70-110 Lab Interpretation (test code = Normal 51150-1) [facility] GLUCOSE (AUTOMATED)2022-12-16 11:15:55 Test Item Value Reference Range Interpretation Comments POCT GLU (test code = 4607989975) 94 mg/dL 70-110 Lab Interpretation (test code = Normal 40135-1) [facility] B Surface Antibody (HBsAb)2022-12-16 10:38:42 Test Item Value Reference Range Interpretation Comments HBsAB (test code = Indeterminate 4225736774) HBsAb 8.40 mIU/mL Semi-Quantitative (test code = 6629080527) BRAD (test code = Unable to determine if BRAD) antibody to Hepatitis B Surface Antigen is present at levels consistent with immunity. ?Patient's immune status should be assessed with other clinical information and/or retesting in 4-6 weeks as clinically indicated. ?If any questions, please contact Clinical Chemistry Director oncology nurse navigator at .Interpretati on: ?Hepatitis B Surface Antibody ? Negative - Patient is considered to be not immune to infection with HBV. ? ? Positive - Anti-HBs detected at greater than or equal to 12 mIU/mL. ?Patient is considered to be immune to infection with HBV. ? [facility] B Surface Antibody (HBsAb)2022-12-16 10:38:42 Test Item Value Reference Range Interpretation Comments HBsAB (test code = Indeterminate 6708708815) HBsAb 8.40 mIU/mL Semi-Quantitative (test code = 5662716777) BRAD (test code = Unable to determine if BRAD) antibody to Hepatitis B Surface Antigen is present at levels consistent with immunity. ?Patient's immune status should be assessed with other clinical information and/or retesting in 4-6 weeks as clinically indicated. ?If any questions, please contact Clinical Chemistry Director oncology nurse navigator at .Interpretati on: ?Hepatitis B Surface Antibody ? Negative - Patient is considered to be not immune to infection with HBV. ? ? Positive - Anti-HBs detected at greater than or equal to 12 mIU/mL. ?Patient is considered to be immune to infection with HBV. ? [facility] WITH [id number] 10:21:46 Test Item Value Reference Range Interpretation [...] (test code = 52.0 fL 39.0-49.9 H 99351-9) RDW-CV (test code = 15.7 % 12.0-15.5 H 788-0) PLT (test code = 144 See_Comment L [Automated 777-3) message] The system which generated this result transmit matthew reference range : 166 - 358 10*3/ ?L. The reference range was not u sed to interpret th is result as normal/abnormal . MPV (test code = 9.4 fL 9.5-12.9 L 55845-6) NRBC/100 WBC (test 0.0 See_Comment [Automat ed code = 0348930740) message] The system which generated this result transmit matthew reference range : 0.0 - 10.0 /100 WBCs. The reference range was not used to interpret this result as normal/abnormal . NRBC x10^3 (test code See_Comment [Auto mated = 6078163536) message] The system which generated this result transmit matthew reference range : 10*3/?L. The reference range was not used to interpret this result as normal/abnormal . GRAN MAT (NEUT) % 88.9 % (test code = 770-8) IMM GRAN % (test code 0.80 % = 9460808061) LYMPH % (test code = 5.8 % 736-9) MONO % (test code = 3.6 % 5905-5) EOS % (test code = 0.8 % 713-8) BASO % (test code = 0.1 % 706-2) GRAN MAT x10^3(ANC) 13.99 10*3/uL 1.88-7.09 H (test code = 5674503691) IMM GRAN x10^3 (test 0.13 10*3/uL 0.00-0.06 H code = 2266108406) LYMPH x10^3 (test code 0.92 10*3/uL 1.32-3.29 L = 731-0) MONO x10^3 (test code 0.56 10*3/uL 0.33-0.92 = 742-7) EOS x10^3 (test code = 0.13 10*3/uL 0.03-0.39 711-2) BASO x10^3 (test code 0.01-0.07 = 704-7) Lab Interpretation Abnormal (test code = 97798-2) [facility] WITH [id number] 10:21:46 Test Item Value Reference Range Interpretation [...] (test code = 52.0 fL 39.0-49.9 H 44107-7) RDW-CV (test code = 15.7 % 12.0-15.5 H 788-0) PLT (test code = 144 See_Comment L [Automated 777-3) message] The system which generated this result transmit matthew reference range : 166 - 358 10*3/ ?L. The reference range was not u sed to interpret th is result as normal/abnormal . MPV (test code = 9.4 fL 9.5-12.9 L 06812-6) NRBC/100 WBC (test 0.0 See_Comment [Automat ed code = 0813925085) message] The system which generated this result transmit matthew reference range : 0.0 - 10.0 /100 WBCs. The reference range was not used to interpret this result as normal/abnormal . NRBC x10^3 (test code See_Comment [Auto mated = 7344863317) message] The system which generated this result transmit matthew reference range : 10*3/?L. The reference range was not used to interpret this result as normal/abnormal . GRAN MAT (NEUT) % 88.9 % (test code = 770-8) IMM GRAN % (test code 0.80 % = 8012334516) LYMPH % (test code = 5.8 % 736-9) MONO % (test code = 3.6 % 5905-5) EOS % (test code = 0.8 % 713-8) BASO % (test code = 0.1 % 706-2) GRAN MAT x10^3(ANC) 13.99 10*3/uL 1.88-7.09 H (test code = 9524193210) IMM GRAN x10^3 (test 0.13 10*3/uL 0.00-0.06 H code = 1757499853) LYMPH x10^3 (test code 0.92 10*3/uL 1.32-3.29 L = 731-0) MONO x10^3 (test code 0.56 10*3/uL 0.33-0.92 = 742-7) EOS x10^3 (test code = 0.13 10*3/uL 0.03-0.39 711-2) BASO x10^3 (test code 0.01-0.07 = 704-7) Lab Interpretation Abnormal (test code = 79232-9) [facility] B Surface Antigen (HBsAg)2022-12-16 06:57:04 Test Item Value Reference Range Interpretation Comments HBsAg Semi-Quantitative (test code = 0.06 Negative 5195-3) [facility] B Surface Antigen (HBsAg)2022-12-16 06:57:04 Test Item Value Reference Range Interpretation Comments HBsAg Semi-Quantitative (test code = 0.06 Negative 5195-3) [facility] GLUCOSE (AUTOMATED)2022-12-16 05:30:23 Test Item Value Reference Range Interpretation Comments POCT GLU (test code = 4734004899) 75 mg/dL 70-110 Lab Interpretation (test code = Normal 94544-1) [facility] GLUCOSE (AUTOMATED)2022-12-16 05:30:23 Test Item Value Reference Range Interpretation Comments POCT GLU (test code = 9832226655) 75 mg/dL 70-110 Lab Interpretation (test code = Normal 33636-6) [facility] [id number] 23:05:10 Test Item Value Reference Range Interpretation Comments TROPONIN I (test code = 0.088 ng/mL <=0.034 H 1565099987) BRAD (test code = BRAD) Reference (Normal) [...] biotin. Lab Interpretation Abnormal (test code = 79224-5) [facility] [id number] 23:05:10 Test Item Value Reference Range Interpretation Comments TROPONIN I (test code = 0.088 ng/mL <=0.034 H 3465543915) BRAD (test code = BRAD) Reference (Normal) [...] biotin. Lab Interpretation Abnormal (test code = 55113-2) [facility] GLUCOSE (AUTOMATED)2022-12-15 23:02:20 Test Item Value Reference Range Interpretation Comments POCT GLU (test code = 3695105760) 166 mg/dL 70-110 H Lab Interpretation (test code = Abnormal 99801-8) [facility] GLUCOSE (AUTOMATED)2022-12-15 23:02:20 Test Item Value Reference Range Interpretation Comments POCT GLU (test code = 7327061263) 166 mg/dL 70-110 H Lab Interpretation (test code = Abnormal 82300-7) [facility] P[facility] RBC (in units), 1 Units 2022-12-15 22:05:53 Test Item Value Reference Range Interpretation Comments Cross Match Result Compatible (test code = 4409) ISBT Blood Type Code 6200 (test code = 266696) Unit Blood Type (test A Pos code = 4410) Unit Number (test [id number] code = 4411) Blood Expiration Date & Time (test code = 178953) Status Information Issued (test code = 4412) Product Red Blood Cells Identification (test code = 4413) Product Code (test C8621P33 Performed at [facility] code = 4414) Laboratory [facility] Blood [address] [place] [address]Yhjd Free: [phone] A No. [id number] [facility] Packed RBC (in units), 1 Units 2022-12-15 22:05:53 Test Item Value Reference Range Interpretation Comments Cross Match Result Compatible (test code = 4409) ISBT Blood Type Code 6200 (test code = 264337) Unit Blood Type (test A Pos code = 4410) Unit Number (test [id number] code = 4411) Blood Expiration Date 934973932297 & Time (test code = 382158) Status Information Issued (test code = 4412) Product Red Blood Cells Identification (test code = 4413) Product Code (test P3299W65 Performed at [facility] code = 4414) [facility] Blood [address] [place] [address]Wsuf Free: [phone] A No. [id number] [facility] POS[facility]IVE BLOOD PATHOGENS DNA [id number] 21:12:06 Test Item Value Reference Range Interpretation Comments Staphylococcus aureus Positive Negative, See A (test code = 04074-8) Comment/Narrativ e mecA (test code = Negative Negative, See 20104-7) Comment/Narrativ e BRAD (test code = BRAD) MSSA detected by DNA probe. ?See blood culture result for additional susceptibilityInformati on. Preferred therapies for MSSA ?bacteremia are nafcillin or cefazolin.Infectious Diseases consultation recommended. Please contact the Antimicrobial Stewardship Program with questions.ASP Pager: ?[phone] Testing included eleven identification and three resistance marker targets. See blood culture result for additional information. Testing included eleven identification and three resistancemarker targets. Lab Interpretation Abnormal (test code = 30544-3) [facility] PATHOGENS DNA [id number] 21:12:06 Test Item Value Reference Range Interpretation Comments Staphylococcus aureus Positive Negative, See A (test code = 26220-7) Comment/Narrativ e mecA (test code = Negative Negative, See 28209-5) Comment/Narrativ e BRAD (test code = BRAD) MSSA detected by DNA probe. ?See blood culture result for additional susceptibilityInformati on. Preferred therapies for MSSA ?bacteremia are nafcillin or cefazolin.Infectious Diseases consultation recommended. Please contact the Antimicrobial Stewardship Program with questions.ASP Pager: ?[phone] Testing included eleven identification and three resistance marker targets. See blood culture result for additional information. Testing included eleven identification and three resistancemarker targets. Lab Interpretation Abnormal (test code = 14401-0) [facility] GLUCOSE (AUTOMATED)2022-12-15 17:59:51 Test Item Value Reference Range Interpretation Comments POCT GLU (test code = 9548674422) 88 mg/dL 70-110 Lab Interpretation (test code = Normal 50854-2) [facility] GLUCOSE (AUTOMATED)2022-12-15 17:59:51 Test Item Value Reference Range Interpretation Comments POCT GLU (test code = 5884135522) 88 mg/dL 70-110 Lab Interpretation (test code = Normal 15226-0) [facility] [id number] 12:38:38 Test Item Value Reference Range Interpretation Comments NT-proBNP (test code = 66825 pg/mL <=125 H 2299880913) BRAD (test code = BRAD) Biotin has been reported to cause a negative bias, interpret results relative to patient's use of biotin. Lab Interpretation (test Abnormal code = 33594-9) [facility] [id number] 12:38:38 Test Item Value Reference Range Interpretation Comments NT-proBNP (test code = 36884 pg/mL <=125 H 6703027324) BRAD (test code = BRAD) Biotin has been reported to cause a negative bias, interpret results relative to patient's use of biotin. Lab Interpretation (test Abnormal code = 73620-9) [facility] WITH [id number] 12:16:32 Test Item Value Reference Range Interpretation [...] (test code = 51.8 fL 39.0-49.9 H 90824-8) RDW-CV (test code = 15.6 % 12.0-15.5 H 788-0) PLT (test code = 174 See_Comment [Automated 777-3) message] The system which generated this result transmitted reference range : 166 - 358 10*3/?L. The reference range was not used to interpret this result as normal/abnormal . MPV (test code = 9.0 fL 9.5-12.9 L 94469-9) NRBC/100 WBC (test 0.0 See_Comment [Automat ed code = 3801898123) message] The system which generated this result transmitted reference range : 0.0 - 10.0 /100 WBCs. The reference range was not used to interpret this result as normal/abnormal . NRBC x10^3 (test code See_Comment [Auto mated = 2083980660) message] The system which generated this result transmitted reference range : 10*3/?L. The reference range was not used to interpret this result as normal/abnormal . GRAN MAT (NEUT) % 94.9 % (test code = 770-8) IMM GRAN % (test code 0.90 % = 4215841480) LYMPH % (test code = 1.3 % 736-9) MONO % (test code = 2.4 % 5905-5) EOS % (test code = 0.2 % 713-8) BASO % (test code = 0.3 % 706-2) GRAN MAT x10^3(ANC) 28.43 10*3/uL 1.88-7.09 H (test code = 0224147835) IMM GRAN x10^3 (test 0.27 10*3/uL 0.00-0.06 H code = 8150531609) LYMPH x10^3 (test 0.38 10*3/uL 1.32-3.29 L code = 731-0) MONO x10^3 (test code 0.72 10*3/uL 0.33-0.92 = 742-7) EOS x10^3 (test code 0.07 10*3/uL 0.03-0.39 = 711-2) BASO x10^3 (test code 0.08 10*3/uL 0.01-0.07 H = 704-7) POLYCHROMASIA (test 2+ See_Comment [Automa matthew code = 65692-7) message] The system which generated this result transmitted reference range : 2+. The referen ce range was not used to interpr et this result as normal/abnormal . BANDS (test code = MARKED INCREASED A 6600418233) DOHLE BODIES (test Present A code = 7792-5) TOXIC CHANGES (test Present A code = 803-7) GIANT PLATELETS (test Present See_Comment A [Auto mated code = 5908-9) message] The system which generated this result transmitted reference range : (none). The reference range was not used to interpret this result as normal/abnormal . Lab Interpretation Abnormal (test code = 35289-6) [facility] WITH [id number] 12:16:32 Test Item Value Reference Range Interpretation [...] (test code = 51.8 fL 39.0-49.9 H 68767-5) RDW-CV (test code = 15.6 % 12.0-15.5 H 788-0) PLT (test code = 174 See_Comment [Automated 777-3) message] The system which generated this result transmitted reference range : 166 - 358 10*3/?L. The reference range was not used to interpret this result as normal/abnormal . MPV (test code = 9.0 fL 9.5-12.9 L 84348-9) NRBC/100 WBC (test 0.0 See_Comment [Automat ed code = 4639102507) message] The system which generated this result transmitted reference range : 0.0 - 10.0 /100 WBCs. The reference range was not used to interpret this result as normal/abnormal . NRBC x10^3 (test code See_Comment [Auto mated = 7874453519) message] The system which generated this result transmitted reference range : 10*3/?L. The reference range was not used to interpret this result as normal/abnormal . GRAN MAT (NEUT) % 94.9 % (test code = 770-8) IMM GRAN % (test code 0.90 % = 0831842720) LYMPH % (test code = 1.3 % 736-9) MONO % (test code = 2.4 % 5905-5) EOS % (test code = 0.2 % 713-8) BASO % (test code = 0.3 % 706-2) GRAN MAT x10^3(ANC) 28.43 10*3/uL 1.88-7.09 H (test code = 7505565047) IMM GRAN x10^3 (test 0.27 10*3/uL 0.00-0.06 H code = 4194031649) LYMPH x10^3 (test 0.38 10*3/uL 1.32-3.29 L code = 731-0) MONO x10^3 (test code 0.72 10*3/uL 0.33-0.92 = 742-7) EOS x10^3 (test code 0.07 10*3/uL 0.03-0.39 = 711-2) BASO x10^3 (test code 0.08 10*3/uL 0.01-0.07 H = 704-7) POLYCHROMASIA (test 2+ See_Comment [Automa matthew code = 74892-7) message] The system which generated this result transmitted reference range : 2+. The referen ce range was not used to interpr et this result as normal/abnormal . BANDS (test code = MARKED INCREASED A 9695997337) DOHLE BODIES (test Present A code = 7792-5) TOXIC CHANGES (test Present A code = 803-7) GIANT PLATELETS (test Present See_Comment A [Auto mated code = 5908-9) message] The system which generated this result transmitted reference range : (none). The reference range was not used to interpret this result as normal/abnormal . Lab Interpretation Abnormal (test code = 79876-0) [facility] [id number] 12:05:11 Test Item Value Reference Range Interpretation Comments TROPONIN I (test code = 0.096 ng/mL <=0.034 H 5309671785) BRAD (test code = BRAD) Reference (Normal) [...] biotin. Lab Interpretation Abnormal (test code = 70085-4) [id number] 12:05:11 Test Item Value Reference Range Interpretation Comments TROPONIN I (test code = 0.096 ng/mL <=0.034 H 7047716313) BRAD (test code = BRAD) Reference (Normal) [...] biotin. Lab Interpretation Abnormal (test code = 04203-2) [facility] (NA, K, CL, CO2, GLUCOSE, BUN, CREATININE, CA)2022-12-15 11:53:07 Test Item Value Reference Range Interpretation Comments NA (test code = 139 mmol/L 135-145 9506914195) K (test code = 3.6 mmol/L 3.5-5.0 5323763193) CL (test code = 104 mmol/L 98-108 5794808790) CO2 TOTAL (test code = 19 mmol/L 23-31 L 9739403409) AGAP (test code = 16 2-16 3995859230) BUN (test code = 41 mg/dL 7-23 H 9308292064) GLUCOSE (test code = 85 mg/dL 70-110 3034944915) CREATININE (test code = 3.85 mg/dL 0.50-1.04 H 7471895923) CALCIUM (test code = 8.9 mg/dL 8.6-10.6 3220965999) eGFR (test code = 11.7 mL/min/1.73m2 7824002700) BRAD (test code = BRAD) Association of [...] tests). Lab Interpretation Abnormal (test code = 20278-2) [facility] 11:53:07 Test Item Value Reference Range Interpretation Comments MAGNESIUM (test code = 9057449535) 1.9 mg/dL 1.7-2.4 Lab Interpretation (test code = Normal 15793-1) [facility] (NA, K, CL, CO2, GLUCOSE, BUN, CREATININE, CA)2022-12-15 11:53:07 Test Item Value Reference Range Interpretation Comments NA (test code = 139 mmol/L 135-145 3006682176) K (test code = 3.6 mmol/L 3.5-5.0 6018386875) CL (test code = 104 mmol/L 98-108 2811327299) CO2 TOTAL (test code = 19 mmol/L 23-31 L 2676423789) AGAP (test code = 16 2-16 0033957056) BUN (test code = 41 mg/dL 7-23 H 1991351691) GLUCOSE (test code = 85 mg/dL 70-110 7246360693) CREATININE (test code = 3.85 mg/dL 0.50-1.04 H 5255796311) CALCIUM (test code = 8.9 mg/dL 8.6-10.6 7577431605) eGFR (test code = 11.7 mL/min/1.73m2 7237536525) BRAD (test code = BRAD) Association of [...] tests). Lab Interpretation Abnormal (test code = 56446-6) [facility]20[facility] 11:53:07 Test Item Value Reference Range Interpretation Comments MAGNESIUM (test code = 6316312899) 1.9 mg/dL 1.7-2.4 Lab Interpretation (test code = Normal 97348-0) [facility]OS[facility]US2023-[facility] 11:52:47 Test Item Value Reference Range Interpretation Comments PHOSPHORUS (test code = 3480154987) 4.8 mg/dL 2.5-5.0 Lab Interpretation (test code = Normal 64890-8) [facility]2023-[facility]-09 11:52:47 Test Item Value Reference Range Interpretation Comments PHOSPHORUS (test code = 0248862220) 4.8 mg/dL 2.5-5.0 Lab Interpretation (test code = Normal 58520-1) [facility] 11:52:06 Test Item Value Reference Range Interpretation Comments LIPASE (test code = 1019423844) 39 U/L 0-220 Lab Interpretation (test code = Normal 66183-1) [facility] 11:52:06 Test Item Value Reference Range Interpretation Comments LIPASE (test code = 5717726053) 39 U/L 0-220 Lab Interpretation (test code = Normal 07091-4) [facility] GLUCOSE (AUTOMATED)2022-12-15 10:44:05 Test Item Value Reference Range Interpretation Comments POCT GLU (test code = 7726551083) 95 mg/dL 70-110 Lab Interpretation (test code = Normal 56379-2) [facility] GLUCOSE (AUTOMATED)2022-12-15 10:44:05 Test Item Value Reference Range Interpretation Comments POCT GLU (test code = 7939998389) 95 mg/dL 70-110 Lab Interpretation (test code = Normal 08850-7) [facility] CenterLamtic Acid Whole [id number] 07:17:20 Test Item Value Reference Range Interpretation Comments LACTIC ACID (test code = 1.81 mmol/L 0.50-2.20 5590111680) Lab Interpretation (test code = Normal 25059-6) [facility] CenterL[facility] Whole [id number] 07:17:20 Test Item Value Reference Range Interpretation Comments LACTIC ACID (test code = 1.81 mmol/L 0.50-2.20 5739041625) Lab Interpretation (test code = Normal 89100-2) [facility] GLUCOSE (AUTOMATED)2022-12-15 05:00:50 Test Item Value Reference Range Interpretation Comments POCT GLU (test code = 4015864695) 122 mg/dL 70-110 H Lab Interpretation (test code = Abnormal 91070-2) [facility] GLUCOSE (AUTOMATED)2022-12-15 05:00:50 Test Item Value Reference Range Interpretation Comments POCT GLU (test code = 8057307297) 122 mg/dL 70-110 H Lab Interpretation (test code = Abnormal 68184-6) [facility] Test Item Value Reference Range Interpretation Comments MAGNESIUM (test code = 3787247360) 2.0 mg/dL 1.7-2.4 Lab Interpretation (test code = Normal 18482-1) [facility] Test Item Value Reference Range Interpretation Comments MAGNESIUM (test code = 4511877655) 2.0 mg/dL 1.7-2.4 Lab Interpretation (test code = Normal 15611-2) [id number] 00:09:11 Test Item Value Reference Range Interpretation Comments NT-proBNP (test code = 69172 pg/mL <=125 H 0655673282) BRAD (test code = BRAD) Biotin has been reported to cause a negative bias, interpret results relative to patient's use of biotin. Lab Interpretation (test Abnormal code = 89821-2) [facility] [id number] 00:09:11 Test Item Value Reference Range Interpretation Comments NT-proBNP (test code = 44919 pg/mL <=125 H 2768357539) BRAD (test code = BRAD) Biotin has been reported to cause a negative bias, interpret results relative to patient's use of biotin. Lab Interpretation (test Abnormal code = 65268-1) [facility] [id number] 23:53:13 Test Item Value Reference Range Interpretation Comments TROPONIN I (test code = 0.049 ng/mL <=0.034 H 0590004384) BRAD (test code = BRAD) Reference (Normal) [...] biotin. Lab Interpretation Abnormal (test code = 57470-7) [facility] [id number] 23:53:13 Test Item Value Reference Range Interpretation Comments TROPONIN I (test code = 0.049 ng/mL <=0.034 H 5509165266) BRAD (test code = BRAD) Reference (Normal) [...] biotin. Lab Interpretation Abnormal (test code = 74065-1) [facility]. METABOLIC PANEL (95017)2022-12-14 23:39:49 Test Item Value Reference Range Interpretation Comments NA (test code = 138 mmol/L 135-145 5976890678) K (test code = 3.3 mmol/L 3.5-5.0 L 0873512368) CL (test code = 100 mmol/L 98-108 2213599050) CO2 TOTAL (test code = 24 mmol/L 23-31 6169204816) AGAP (test code = 14 2-16 2815519476) BUN (test code = 34 mg/dL 7-23 H 1679750521) GLUCOSE (test code = 225 mg/dL 70-110 H 7489562216) CREATININE (test code = 3.54 mg/dL 0.50-1.04 H 4353075345) TOTAL BILI (test code = 0.9 mg/dL 0.1-1.7 2196786713) CALCIUM (test code = 9.3 mg/dL 8.6-10.6 5120364478) T PROTEIN (test code = 6.4 g/dL 6.3-8.2 9794319352) ALBUMIN (test code = 3.2 g/dL 3.5-5.0 L 7212851573) ALK PHOS (test code = 162 U/L 34-122 H 3592515065) ALTv (test code = 19 U/L 5-35 1742-6) AST(SGOT) (test code = 24 U/L 13-40 8469410312) eGFR (test code = 12.9 mL/min/1.73m2 7045595516) BRAD (test code = BRAD) Association of [...] tests). Lab Interpretation Abnormal (test code = 44687-4) [facility]. METABOLIC PANEL (68495)2022-12-14 23:39:49 Test Item Value Reference Range Interpretation Comments NA (test code = 138 mmol/L 135-145 0605415768) K (test code = 3.3 mmol/L 3.5-5.0 L 2223738779) CL (test code = 100 mmol/L 98-108 9317956379) CO2 TOTAL (test code = 24 mmol/L 23-31 4981979726) AGAP (test code = 14 2-16 9922264089) BUN (test code = 34 mg/dL 7-23 H 4606559290) GLUCOSE (test code = 225 mg/dL 70-110 H 3916288508) CREATININE (test code = 3.54 mg/dL 0.50-1.04 H 4957107912) TOTAL BILI (test code = 0.9 mg/dL 0.1-1.2 4091578204) CALCIUM (test code = 9.3 mg/dL 8.6-10.6 2950128897) T PROTEIN (test code = 6.4 g/dL 6.3-8.2 5049034693) ALBUMIN (test code = 3.2 g/dL 3.5-5.0 L 4886153562) ALK PHOS (test code = 162 U/L 34-122 H 0483983985) ALTv (test code = 19 U/L 5-35 1742-6) AST(SGOT) (test code = 24 U/L 13-40 2528753725) eGFR (test code = 12.9 mL/min/1.73m2 0101748452) BRAD (test code = BRAD) Association of [...] tests). Lab Interpretation Abnormal (test code = 06780-1) [facility] 23[facility]39:08 Test Item Value Reference Range Interpretation Comments LIPASE (test code = 7374891320) 414 U/L 0-220 H Lab Interpretation (test code = Abnormal 10277-3) [facility] 23:39:08 Test Item Value Reference Range Interpretation Comments LIPASE (test code = 1442523835) 414 U/L 0-220 H Lab Interpretation (test code = Abnormal 05072-3) [facility] WITH [id number] 23:28:05 Test Item Value Reference Range Interpretation Comments WBC (test code = 14.88 See_Comment H [Automated 1931-2) message] The system which generated this result transmit matthew reference range : 4.30 - 11.10 10*3/?L. The reference range was not used to interpret this result as normal/abnormal . RBC (test code = 2.91 See_Comment L [Automated 219-8) message] The system which generated this result [...] (test code = 50.1 fL 39.0-49.9 H 15575-5) RDW-CV (test code = 15.0 % 12.0-15.5 788-0) PLT (test code = 207 See_Comment [Automated 777-3) message] The system which generated this result transmit matthew reference range : 166 - 358 10*3/ ?L. The reference range was not u sed to interpret th is result as normal/abnormal . MPV (test code = 9.0 fL 9.5-12.9 L 77177-1) NRBC/100 WBC (test 0.0 See_Comment [Automat ed code = 7075443250) message] The system which generated this result transmit matthew reference range : 0.0 - 10.0 /100 WBCs. The reference range was not used to interpret this result as normal/abnormal . NRBC x10^3 (test code See_Comment [Auto mated = 7339022728) message] The system which generated this result transmit matthew reference range : 10*3/?L. The reference range was not used to interpret this result as normal/abnormal . GRAN MAT (NEUT) % 95.6 % (test code = 770-8) IMM GRAN % (test code 0.60 % = 7735487383) LYMPH % (test code = 1.9 % 736-9) MONO % (test code = 1.0 % 5905-5) EOS % (test code = 0.7 % 713-8) BASO % (test code = 0.2 % 706-2) GRAN MAT x10^3(ANC) 14.21 10*3/uL 1.88-7.09 H (test code = 7483926513) IMM GRAN x10^3 (test 0.09 10*3/uL 0.00-0.06 H code = 5919302662) LYMPH x10^3 (test code 0.29 10*3/uL 1.32-3.29 L = 731-0) MONO x10^3 (test code 0.15 10*3/uL 0.33-0.92 L = 742-7) EOS x10^3 (test code = 0.11 10*3/uL 0.03-0.39 711-2) BASO x10^3 (test code 0.03 10*3/uL 0.01-0.07 = 704-7) Lab Interpretation Abnormal (test code = 84760-3) [facility] WITH [id number] 23:28:05 Test Item Value Reference Range Interpretation Comments WBC (test code = 14.88 See_Comment H [Automated 8490-2) message] The system which generated this result [...] (test code = 50.1 fL 39.0-49.9 H 17652-5) RDW-CV (test code = 15.0 % 12.0-15.5 788-0) PLT (test code = 207 See_Comment [Automated 777-3) message] The system which generated this result transmit matthew reference range : 166 - 358 10*3/ ?L. The reference range was not u sed to interpret th is result as normal/abnormal . MPV (test code = 9.0 fL 9.5-12.9 L 29949-2) NRBC/100 WBC (test 0.0 See_Comment [Automat ed code = 3849018375) message] The system which generated this result transmit matthew reference range : 0.0 - 10.0 /100 WBCs. The reference range was not used to interpret this result as normal/abnormal . NRBC x10^3 (test code See_Comment [Auto mated = 1805027497) message] The system which generated this result transmit matthew reference range : 10*3/?L. The reference range was not used to interpret this result as normal/abnormal . GRAN MAT (NEUT) % 95.6 % (test code = 770-8) IMM GRAN % (test code 0.60 % = 5762803149) LYMPH % (test code = 1.9 % 736-9) MONO % (test code = 1.0 % 5905-5) EOS % (test code = 0.7 % 713-8) BASO % (test code = 0.2 % 706-2) GRAN MAT x10^3(ANC) 14.21 10*3/uL 1.88-7.09 H (test code = 8157467343) IMM GRAN x10^3 (test 0.09 10*3/uL 0.00-0.06 H code = 4261939508) LYMPH x10^3 (test code 0.29 10*3/uL 1.32-3.29 L = 731-0) MONO x10^3 (test code 0.15 10*3/uL 0.33-0.92 L = 742-7) EOS x10^3 (test code = 0.11 10*3/uL 0.03-0.39 711-2) BASO x10^3 (test code 0.03 10*3/uL 0.01-0.07 = 704-7) Lab Interpretation Abnormal (test code = 66388-5) [facility] Whole [id number] 22:59:07 Test Item Value Reference Range Interpretation Comments LACTIC ACID (test code = 1.80 mmol/L 0.50-2.20 2353657732) Lab Interpretation (test code = Normal 06132-6) [facility] [id number] 22:59:07 Test Item Value Reference Range Interpretation Comments LACTIC ACID (test code = 1.80 mmol/L 0.50-2.20 6315362812) Lab Interpretation (test code = Normal 87878-2) [facility] GLUCOSE (AUTOMATED)2022-12-14 22:56:50 Test Item Value Reference Range Interpretation Comments POCT GLU (test code = 0694517047) 235 mg/dL 70-110 H Lab Interpretation (test code = Abnormal 49846-5) [facility] GLUCOSE (AUTOMATED)2022-12-14 22:56:50 Test Item Value Reference Range Interpretation Comments POCT GLU (test code = 0186227973) 235 mg/dL 70-110 H Lab Interpretation (test code = Abnormal 11475-8) [facility] GLUCOSE (AUTOMATED)2022-11-07 21:58:54 Test Item Value Reference Range Interpretation Comments POCT GLU (test code = 6296906520) 184 mg/dL 70-110 H Lab Interpretation (test code = Abnormal 38634-2) [facility] GLUCOSE (AUTOMATED)2022-11-07 16:45:57 Test Item Value Reference Range Interpretation Comments POCT GLU (test code = 5886380081) 196 mg/dL 70-110 H Lab Interpretation (test code = Abnormal 20897-3) [facility] GLUCOSE (AUTOMATED)2022-11-07 13:12:51 Test Item Value Reference Range Interpretation Comments POCT GLU (test code = 6868989090) 164 mg/dL 70-110 H Lab Interpretation (test code = Abnormal 40478-9) [facility] Antibody (HBsAb)2022-11-06 23:00:28 Test Item Value Reference Range Interpretation Comments HBsAB (test code = Indeterminate 8563172187) HBsAb 6.20 mIU/mL Semi-Quantitative (test code = 2842876825) BRAD (test code = Unable to determine if BRAD) antibody to Hepatitis B Surface Antigen is present at levels consistent with immunity. ?Patient's immune status should be assessed with other clinical information and/or retesting in 4-6 weeks as clinically indicated. ?If any questions, please contact Clinical Chemistry Director oncology nurse navigator at .Interpretati on: ?Hepatitis B Surface Antibody ? Negative - Patient is considered to be not immune to infection with HBV. ? ? Positive - Anti-HBs detected at greater than or equal to 12 mIU/mL. ?Patient is considered to be immune to infection with HBV. ? [facility] GLUCOSE (AUTOMATED)2022-11-06 21:40:13 Test Item Value Reference Range Interpretation Comments POCT GLU (test code = 0686878727) 180 mg/dL 70-110 H Lab Interpretation (test code = Abnormal 75806-6) [facility] Antigen (HBsAg)2022-11-06 20:40:07 Test Item Value Reference Range Interpretation Comments HBsAg Semi-Quantitative (test code = 0.21 Negative 5195-3) [facility] GLUCOSE (AUTOMATED)2022-11-06 16:28:02 Test Item Value Reference Range Interpretation Comments POCT GLU (test code = 4170596678) 177 mg/dL 70-110 H Lab Interpretation (test code = Abnormal 26445-0) [facility] [id number] 15:24:24 Test Item Value Reference Range Interpretation Comments TROPONIN I (test code = 0.047 ng/mL <=0.034 H 3406123570) BRAD (test code = BRAD) Reference (Normal) [...] biotin. Lab Interpretation Abnormal (test code = 80556-4) [facility] GLUCOSE (AUTOMATED)2022-11-06 12:43:24 Test Item Value Reference Range Interpretation Comments POCT GLU (test code = 0838061311) 158 mg/dL 70-110 H Lab Interpretation (test code = Abnormal 96317-0) [facility] GLUCOSE (AUTOMATED)2022-11-06 01:41:32 Test Item Value Reference Range Interpretation Comments POCT GLU (test code = 2923236265) 218 mg/dL 70-110 H Lab Interpretation (test code = Abnormal 12621-6) [facility] GLUCOSE (AUTOMATED)2022-11-05 22:03:11 Test Item Value Reference Range Interpretation Comments POCT GLU (test code = 4519465807) 156 mg/dL 70-110 H Lab Interpretation (test code = Abnormal 86292-2) [facility] GLUCOSE (AUTOMATED)2022-11-05 16:40:51 Test Item Value Reference Range Interpretation Comments POCT GLU (test code = 7094497411) 197 mg/dL 70-110 H Lab Interpretation (test code = Abnormal 78348-4) [facility] GLUCOSE (AUTOMATED)2022-11-05 12:59:19 Test Item Value Reference Range Interpretation Comments POCT GLU (test code = 2509734964) 126 mg/dL 70-110 H Lab Interpretation (test code = Abnormal 28254-2) [facility] CenterTHY[facility]ID STIMULATING [id number] 02:54:06 Test Item Value Reference Range Interpretation Comments TSH (test code = 2.59 See_Comment Biotin has been 0547449390) reported to cau se a negative bias, interpret resul ts relative to pat ient's use of biotin. [Automated mess age] The system [employer]™ generated this result transmitted ref erence range: 0.45 - 4 .70 mIU/L. The refe rence range was not u sed to interpret this result as normal/abnor mal. Lab Interpretation (test Normal code = 84950-6) [facility]FR [id number] 02:00:37 Test Item Value Reference Range Interpretation Comments FREE T4 (test code = 1.57 See_Comment [Autom ated message] 0756520585) The system [employer]™ generated this result transmitted ref erence range: 0.78 - 2 .20 ng/dL:. The ref erence range was not u sed to interpret this result as normal/abnor mal. Lab Interpretation (test Normal code = 30676-4) [facility]FR [id number] 02:00:17 Test Item Value Reference Range Interpretation Comments FREE T3 (test code = 6287395556) 3.61 pg/mL 2.77-5.27 Lab Interpretation (test code = Normal 39587-3) [facility] CenterGLYCOSYLATED HEMOGLOBIN (A1C)2022-11-05 01:49:39 Test Item Value Reference Range Interpretation Comments HGB A1C (test code = 4.7 % 4.0-5.7 4548-4) BRAD (test code = BRAD) Reference RangesNormal: <5.7%Prediabetes: 5.7 - 6.4%Diabetes: > 6.5% Lab Interpretation (test Normal code = 87450-4) [facility] CenterCREATINE [id number] 21:11:09 Test Item Value Reference Range Interpretation Comments CK (test code = 2068278060) 24 U/L 33-194 L Lab Interpretation (test code = Abnormal 16920-5) [facility] [id number] 21:01:09 Test Item Value Reference Range Interpretation Comments NT-proBNP (test code = 38345 pg/mL <=125 H 1917933888) BRAD (test code = BRAD) Biotin has been reported to cause a negative bias, interpret results relative to patient's use of biotin. Lab Interpretation (test Abnormal code = 67345-8) [facility]TR[facility] [id number] 20:42:28 Test Item Value Reference Range Interpretation Comments TROPONIN I (test code = 0.054 ng/mL <=0.034 H 8328133604) BRAD (test code = BRAD) Reference (Normal) [...] biotin. Lab Interpretation Abnormal (test code = 91723-4) [facility] CenterCOMP. METABOLIC PANEL (53241)2022-11-04 20:32:09 Test Item Value Reference Range Interpretation Comments NA (test code = 138 mmol/L 135-145 4550510470) K (test code = 3.0 mmol/L 3.5-5.0 L 4616686164) CL (test code = 106 mmol/L 98-108 5518215516) CO2 TOTAL (test code = 26 mmol/L 23-31 5423306399) AGAP (test code = 6 2-16 1083772639) BUN (test code = 18 mg/dL 7-23 5723313850) GLUCOSE (test code = 119 mg/dL 70-110 H 8670591640) CREATININE (test code = 2.18 mg/dL 0.50-1.04 H 4852575953) TOTAL BILI (test code = 0.6 mg/dL 0.1-1.3 0813430141) CALCIUM (test code = 9.2 mg/dL 8.6-10.6 5002863141) T PROTEIN (test code = 5.9 g/dL 6.3-8.2 L 8615959825) ALBUMIN (test code = 3.1 g/dL 3.5-5.0 L 4695652586) ALK PHOS (test code = 124 U/L 34-122 H 2780257230) ALTv (test code = 16 U/L 5-35 1742-6) AST(SGOT) (test code = 18 U/L 13-40 4491241070) eGFR (test code = 22.6 mL/min/1.73m2 4827419437) BRAD (test code = BRAD) Association of [...] tests). Lab Interpretation Abnormal (test code = 89350-1) [facility]MAG[facility]UM2023-[facility]-29 20:32:09 Test Item Value Reference Range Interpretation Comments MAGNESIUM (test code = 3251373022) 2.1 mg/dL 1.7-2.4 Lab Interpretation (test code = Normal 07981-7) [facility] CenterPHOSPHORUS2023-04-29 20:31:49 Test Item Value Reference Range Interpretation Comments PHOSPHORUS (test code = 9493601671) 3.7 mg/dL 2.5-5.0 Lab Interpretation (test code = Normal 16091-8) [facility] CenterCB WITH [id number] 20:19:25 Test Item Value Reference Range Interpretation Comments WBC (test code = 6.70 See_Comment [Automated 4998-2) message] The sy stem which generated this result transmitted reference range : 4.30 - 11.10 10*3/?L. The reference range was not used to interpret this result as normal/abnormal . RBC (test code = 3.05 See_Comment L [Automated 153-8) message] The sy stem which generated this [...] (test code = 57.7 fL 39.0-49.9 H 05706-3) RDW-CV (test code = 16.7 % 12.0-15.5 H 788-0) PLT (test code = 235 See_Comment [Automated 777-3) message] The sy stem which generated this result transmitted reference range : 166 - 358 10*3/ ?L. The reference r chikis was not used to interpret this result as normal/abnormal . MPV (test code = 9.2 fL 9.5-12.9 L 18388-3) NRBC/100 WBC (test 0.0 See_Comment [Automat ed code = 8768354315) message] The system which generated this result transmitted reference range : 0.0 - 10.0 /100 WBCs. The refer ence range was not u sed to interpret th is result as normal/abnormal . NRBC x10^3 (test code See_Comment [Auto mated = 6100479115) message] The s ystem which generated this result transmitted reference range : 10*3/?L. The reference range was not used to interpret this result as normal/abnormal . GRAN MAT (NEUT) % 74.2 % (test code = 770-8) IMM GRAN % (test code 0.30 % = 5768334462) LYMPH % (test code = 12.4 % 736-9) MONO % (test code = 9.1 % 5905-5) EOS % (test code = 3.6 % 713-8) BASO % (test code = 0.4 % 706-2) GRAN MAT x10^3(ANC) 4.97 10*3/uL 1.88-7.09 (test code = 5299169186) IMM GRAN x10^3 (test 0.00-0.06 code = 1553484993) LYMPH x10^3 (test code 0.83 10*3/uL 1.32-3.29 L = 731-0) MONO x10^3 (test code 0.61 10*3/uL 0.33-0.92 = 742-7) EOS x10^3 (test code = 0.24 10*3/uL 0.03-0.39 711-2) BASO x10^3 (test code 0.03 10*3/uL 0.01-0.07 = 704-7) Lab Interpretation Abnormal (test code = 23800-6) [facility] CenterGLUCOSE [id number] 15:54:00 Test Item Value Reference Range Interpretation Comments GLUCOSE BEDSIDE (test 122 MG/DL 70-110 H Perfor med by certified code = GLUBED) 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 [facility] GLUCOSE [id number] 12:13:00 Test Item Value Reference Range Interpretation Comments GLUCOSE BEDSIDE (test 156 MG/DL 70-110 H Perfor med by certified code = GLUBED) 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 [facility] GLUCOSE [id number] 10:42:00 Test Item Value Reference Range Interpretation Comments GLUCOSE BEDSIDE (test 181 MG/DL 70-110 H Perfor med by certified code = GLUBED) 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 [facility] GLUCOSE [id number] 20:05:00 Test Item Value Reference Range Interpretation Comments GLUCOSE BEDSIDE (test 90 MG/DL 70-110 N Perfor med by certified code = GLUBED) 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 [facility] GLUCOSE [id number] 15:46:00 Test Item Value Reference Range Interpretation Comments GLUCOSE BEDSIDE (test 212 MG/DL 70-110 H Perfor med by certified code = GLUBED) 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 [facility] GLUCOSE [id number] 12:44:00 Test Item Value Reference Range Interpretation Comments GLUCOSE BEDSIDE (test 120 MG/DL 70-110 H Perfor med by certified code = GLUBED) 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 [facility] BASIC METABOLIC [id number] 08:34:00 Test Item Value Reference Range Interpretation [...] the recommended for bhumika for GFRby the [facility] for Adults.The GFR will not calculate if th e sex is unknown or if thepatient's ag e is <18 years. CREATININE (test 4.4 mg/dL 0.6-1.3 H code = CREAT) CALCIUM (test code = 9.5 mg/dL 8.0-10.5 N CA) [id number] 08:34:00 Test Item Value Reference Range Interpretation Comments PHOSPHOROUS (test code = PHOS) 2.3 MG/DL 2.5-4.9 L [id number] 08:34:00 Test Item Value Reference Range Interpretation Comments MAGNESIUM (test code = MAG) 2.18 mg/dL 1.80-2.40 N [id number] 08:29:00 Test Item Value Reference Range Interpretation Comments VANCOMYCIN (test code = VANCO) 20.2 mcg/mL CBC W/AUTO [id number] 08:27:00 Test Item Value Reference Range Interpretation [...] REQUIRED (test code NO = MDIFF) CALCIUM [id number] 08:20:00 Test Item Value Reference Range Interpretation Comments CALCIUM IONIZED (test code = AMILCAR) 1.21 MMOL/L 1.09-1.30 N GLUCOSE [id number] 05:39:00 Test Item Value Reference Range Interpretation Comments GLUCOSE BEDSIDE (test 175 MG/DL 70-110 H Perfor med by certified code = GLUBED) 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 [facility] GLUCOSE [id number] 20:49:00 Test Item Value Reference Range Interpretation Comments GLUCOSE BEDSIDE (test 167 MG/DL 70-110 H Perfor med by certified code = GLUBED) 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 [facility] GLUCOSE [id number] 17:03:00 Test Item Value Reference Range Interpretation Comments GLUCOSE BEDSIDE (test 127 MG/DL 70-110 H Perfor med by certified code = GLUBED) 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 [facility] GLUCOSE [id number] 11:54:00 Test Item Value Reference Range Interpretation Comments GLUCOSE BEDSIDE (test 177 MG/DL 70-110 H Perfor med by certified code = GLUBED) 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 [facility] GLUCOSE [id number] 06:39:00 Test Item Value Reference Range Interpretation Comments GLUCOSE BEDSIDE (test 153 MG/DL 70-110 H Perfor med by certified code = GLUBED) 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 [facility] GLUCOSE [id number] 19:51:00 Test Item Value Reference Range Interpretation Comments GLUCOSE BEDSIDE (test 165 MG/DL 70-110 H Perfor med by certified code = GLUBED) 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 [facility] GLUCOSE [id number] 17:15:00 Test Item Value Reference Range Interpretation Comments GLUCOSE BEDSIDE (test 188 MG/DL 70-110 H Perfor med by certified code = GLUBED) 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 [facility] GLUCOSE [id number] 12:16:00 Test Item Value Reference Range Interpretation Comments GLUCOSE BEDSIDE (test 132 MG/DL 70-110 H Perfor med by certified code = GLUBED) 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 [facility] GLUCOSE [id number] 10:20:00 Test Item Value Reference Range Interpretation Comments GLUCOSE BEDSIDE (test 131 MG/DL 70-110 H Perfor med by certified code = GLUBED) 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 [facility] CBC W/AUTO [id number] 08:33:00 Test Item Value Reference Range Interpretation [...] (test code NO = MDIFF) BASIC METABOLIC [id number] 07:37:00 Test Item Value Reference Range Interpretation [...] the recommended for bhumika for GFRby the [facility] on for Adults.The GFR will not calculate if th e sex is unknown or if thepatient's ag e is <18 years. CREATININE (test 5.1 mg/dL 0.6-1.3 H code = CREAT) CALCIUM (test code = 10.1 mg/dL 8.0-10.5 N CA) [id number] 07:37:00 Test Item Value Reference Range Interpretation Comments PHOSPHOROUS (test code = PHOS) 3.4 MG/DL 2.5-4.9 N [id number] 07:37:00 Test Item Value Reference Range Interpretation Comments MAGNESIUM (test code = MAG) 2.31 mg/dL 1.80-2.40 [id number] 06:49:00 Test Item Value Reference Range Interpretation Comments VANCOMYCIN (test code = VANCO) 19.9 mcg/mL GLUCOSE [id number] 06:17:00 Test Item Value Reference Range Interpretation Comments GLUCOSE BEDSIDE (test 173 MG/DL 70-110 H Perfor med by certified code = GLUBED) 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 [facility] [place] B[facility] 3 [id number] 00:00:00 [facility] 1955 Sex: F FAX: Delmy Howell [phone] [place]: St: ADM FAX: Kasey Ochoa MD [phone] FAX: Jim Mazariegos MD [phone] FAX: Adonis Canchola MD [phone] Name: MESERET MOTTA [facility] : 1955 Age/S: 67/F [address] [place] [address] Unit #: [id number] Loc: G.[facility] [place] [address] Phys: Kasey Mendez MD Acct: [id number] Dis Date: Status: ADM IN PHONE #: [phone] Exam Date: 07/04/20 22 1506 FAX #: [phone] Reason: left foot ulcers EXAMS: CPT CODE: [id number] NM BONE 3 PHASE 68358 PROCEDURE INFORMATION: Exam: NM Bone and/or Joint, [...] 1 Signed Report (CONTINUED) FAX: Delmy Howell [phone] [place]: St: ADM FAX: Kasey Ochoa [phone] FAX: Jim Mazariegos MD [phone] FAX: Adonis Canchola MD [phone] Name: MESERET MOTTA [facility] [place] : 1955 Age/S: 67/F [address] [place] [address] Unit #: [id number] Loc: [address] [address] Phys: Kasey Mendez MD Acct: [id number] Dis Date: Status: ADM IN PHONE #: [phone] Exam Date: 07/04/2022 1506 FAX #: [phone] Reason: left foot ulcers EXAMS: CPT CODE: [id number] NM BONE 3 PHASE 50805 (Continued) noted on the left foot plain radiographs. at 1850 Reported and signed by: Gus Moura M.D. CC: Delmy Ashton MD; Kasey Mendez MD; Jim Dhillon MD; Adonis Gaytan MD Technologist: NITA Daniel (N)(CT); ... Trnscrd Date/Time/By: 07/04/2022 (1849) : By: [email or web address] Orig PrintD/T: S: 07/04/2022 (1849) PAGE 2 Signed ReportGLUCOSE [id number] 20:34:00 Test Item Value Reference Range Interpretation Comments GLUCOSE BEDSIDE (test 167 MG/DL 70-110 H Perfor med by certified code = GLUBED) 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 [facility] GLUCOSE [id number] 15:58:00 Test Item Value Reference Range Interpretation Comments GLUCOSE BEDSIDE (test 131 MG/DL 70-110 H Perfor med by certified code = GLUBED) 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 [facility] GLUCOSE [id number] 11:38:00 Test Item Value Reference Range Interpretation Comments GLUCOSE BEDSIDE (test 202 MG/DL 70-110 H Perfor med by certified code = GLUBED) 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 [facility] BASIC METABOLIC [id number] 08:17:00 Test Item Value Reference Range Interpretation [...] 9.2 mg/dL 8.0-10.5 N CA) CBC W/AUTO [id number] 07:54:00 Test Item Value Reference Range Interpretation [...] REQUIRED (test code NO = MDIFF) GLUCOSE [id number] 05:40:00 Test Item Value Reference Range Interpretation Comments GLUCOSE BEDSIDE (test 170 MG/DL 70-110 H Perfor med by certified code = GLUBED) 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 [facility] GLUCOSE [id number] 19:15:00 Test Item Value Reference Range Interpretation Comments GLUCOSE BEDSIDE (test 154 MG/DL 70-110 H Perfor med by certified code = GLUBED) 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 [facility] GLUCOSE [id number] 17:40:00 Test Item Value Reference Range Interpretation Comments GLUCOSE BEDSIDE (test 134 MG/DL 70-110 H Perfor med by certified code = GLUBED) 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 [facility] GLUCOSE [id number] 11:39:00 Test Item Value Reference Range Interpretation Comments GLUCOSE BEDSIDE (test 156 MG/DL 70-110 H Perfor med by certified code = GLUBED) 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 [facility] GLUCOSE [id number] 08:37:00 Test Item Value Reference Range Interpretation Comments GLUCOSE BEDSIDE (test 222 MG/DL 70-110 H Perfor med by certified code = GLUBED) 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 [facility] BASIC METABOLIC [id number] 06:58:00 Test Item Value Reference Range Interpretation [...] the recommended for bhumika for GFRby the [facility] for Adults.The GFR will not calculate if th e sex is unknown or if thepatient's ag e is <18 years. CREATININE (test 3.4 mg/dL 0.6-1.3 H code = CREAT) CALCIUM (test code = 9.0 mg/dL 8.0-10.5 N CA) [id number] 06:58:00 Test Item Value Reference Range Interpretation Comments PHOSPHOROUS (test code = PHOS) 3.0 MG/DL 2.5-4.9 [id number] 06:58:00 Test Item Value Reference Range Interpretation Comments MAGNESIUM (test code = MAG) 1.89 mg/dL 1.80-2.40 N CALCIUM [id number] 06:58:00 Test Item Value Reference Range Interpretation Comments CALCIUM IONIZED (test code = AMILCAR) 1.11 MMOL/L 1.09-1.30 N CBC W/AUTO [id number] 06:47:00 Test Item Value Reference Range Interpretation [...] REQUIRED (test code NO = MDIFF) GLUCOSE [id number] 21:27:00 Test Item Value Reference Range Interpretation Comments GLUCOSE BEDSIDE (test 224 MG/DL 70-110 H Perfor med by certified code = GLUBED) 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 [facility] GLUCOSE [id number] 16:50:00 Test Item Value Reference Range Interpretation Comments GLUCOSE BEDSIDE (test 174 MG/DL 70-110 H Perfor med by certified code = GLUBED) 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 [facility] BASIC METABOLIC [id number] 15:03:00 Test Item Value Reference Range Interpretation [...] the recommended for bhumika for GFRby the [facility] for Adults.The GFR will not calculate if th e sex is unknown or if thepatient's ag e is <18 years. CREATININE (test 5.0 mg/dL 0.6-1.3 H code = CREAT) CALCIUM (test code = 9.1 mg/dL 8.0-10.5 N CA) POC ARTERIAL BLOOD [id number] 14:28:00 Test Item Value Reference Range Interpretation Comments POC ARTERIAL BLOOD GAS PH (test 7.343 7.35-7.45 L code = POCPHA) POC ARTERIAL BLOOD GAS PCO2 (test 47.7 mmHg 35.0-45 H code = ZTRAEP4M) POC TCO2 ARTERIAL (test code = 27.4 POCTCO2) POC ARTERIAL BLOOD GAS PO2 (test 105.9 mmHg 80-100.0 H code = IYWBA0J) POC HCO3 ARTERIAL (test code = 25.9 MMOL/L 22.0-26.0 N ZZYJTQ7G) POC BASE EXCESS (test code = 0.2 MMOL/L -4.0-4.0 N POCBEA) POC O2 SATURATION (test code = 97.7 % 90-100 N POCO2S) BASIC METABOLIC [id number] 14:28:00 Test Item Value Reference Range Interpretation [...] = POCGLU) 188 MG/DL 70-110 H HEMOGLOBIN [id number] 14:28:00 Test Item Value Reference Range Interpretation Comments HEMOGLOBIN ABG (test code = 10.0 G/DL 11.0-15.0 L HGB/ABG) [id number] 14:28:00 Test Item Value Reference Range Interpretation Comments HEMATOCRIT (test code = HCT/ABG) 29 % 33.0-45.0 L POC LACTIC [id number] 14:28:00 Test Item Value Reference Range Interpretation Comments POC LACTIC ACID (test code = 1.3 mmol/l 0.9-1.7 N POCLAC) GLUCOSE [id number] 14:10:00 Test Item Value Reference Range Interpretation Comments GLUCOSE BEDSIDE (test 182 MG/DL 70-110 H Perfor med by certified code = GLUBED) 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 [facility] GLUCOSE [id number] 10:38:00 Test Item Value Reference Range Interpretation Comments GLUCOSE BEDSIDE (test 251 MG/DL 70-110 H Perfor med by certified code = GLUBED) 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 [facility] [id number] 08:07:00 Test Item Value Reference Range Interpretation Comments VANCOMYCIN (test code = VANCO) 22.4 mcg/mL COMMENTS: 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 CREATININE (test 4.7 mg/dL 0.6-1.3 H code = CREAT) CALCIUM (test code = 9.7 mg/dL 8.0-10.5 N CA) [id number] 07:58:00 Test Item Value Reference Range Interpretation Comments PHOSPHOROUS (test code = PHOS) 4.6 MG/DL 2.5-4.9 N [id number] 07:58:00 Test Item Value Reference Range Interpretation Comments MAGNESIUM (test code = MAG) 2.20 mg/dL 1.80-2.40 N CBC W/AUTO [id number] 07:39:00 Test Item Value Reference Range Interpretation [...] REQUIRED (test code NO = MDIFF) GLUCOSE [id number] 05:20:00 Test Item Value Reference Range Interpretation Comments GLUCOSE BEDSIDE (test 148 MG/DL 70-110 H Perfor med by certified code = GLUBED) 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 [facility] - XR CHEST 1 [id number] 00:00:00 [facility] YARIName: MESERET MOTTA : 1955 Sex: F FAX: Agus SalcidomartineVerónica Radha [phone] [place]: St: ADM FAX: Serge Shetty MD FAX: Jim Mazariegos MD [phone] FAX: Adonis Canchola MD [phone] Name: MESERET MOTTA [facility] : 1955 Age/S: 67/F [address] [place] [address] Unit #: [id number] Loc: .[address] [place] [address] Phys: Serge Shetty MD Acct: [id number] Dis Date: Status: ADM IN PHONE #: [phone] Exam Date: 07/01/2022 1537 FAX #: [phone] Reason: hypoxia EXAMS: CPT CODE: [id number] XR CHEST 1 V 01784 PROCEDURE INFORMATION: Exam: XR Chest Exam date [...] and/or atelectasis. Anne ctronically Signed by Amador Hernandez on 07/01/2022 at 1741 Reported and signed by: Sha Hernandez M.D. CC: Delmy Ashton MD; Serge Shetty MD; Jim Dhillon MD; Adonis Gaytan MD Technologist: RT Max(R) Trnscrd Date/Time/By: 07/01/2022 (1740) : By: [email or web address] Orig Print D/T: S: 07/01/2022 (1740) PAGE 1 Signed Report- US PELVIS [id number] 00:00[facility]00 [facility] 1955 Sex: F Name: MESERET MOTTA [facility] : 1955 Age/S: 67 / F [address] [place] [address] Unit #: [id number] Loc: [place] [address] Phys: Adonis Gaytan MD Acct: [id number] Dis Date: Status: ADM IN PHONE #: [phone] Exam Date: 07/01/2022 1406 FAX #: [phone] Reason: DUB...2 weeks of bleeding after 15 years of men EXAMS: CPT CODE: [id number] US PELVIS COMPLETE 52704 PROCEDURE INFORMATION: Exam: US Pelvis Complete, Transabdominal [...] Technologist: Karol Quinn RDMS(AB)(OB) Trnscb Date/Time: 07/01/2022 (5973) DanieTTV Orig Print D/T: S: 07/01/2022 (0798) Cornell stewart: PAGE 1 Signed Report- US TRANSVAGINAL NON [id number] 00:00:00 [facility] LAKEName: MESERET MOTTA : 1955 Sex: F Name: MESERET MOTTA [facility] [place] : 1955 Age/S: 67 / F [address] [place] [address] Bl Unit #: [id number] Loc: [place] [address] Phys: Adonis Gaytan MD Acct: [id number] Dis Date: Status: ADM IN PHONE #: [phone] Exam Date: 07/01/2022 1407 FAX #: [phone] Reason: see US Pelvic Non OB Complete EXAMS: CPT CODE: [id number] [place] [address] PROCEDURE INFORMATION: Exam: US Pelvis Complete, Transabdominal [...] (1433) DanieTTV Orig Print D/T: S: 07/01/2022 (5224) Probe: [id number] PAGE 1 Signed ReportGLUCOSE [id number] 19:48:00 Test Item Value Reference Range Interpretation Comments GLUCOSE BEDSIDE (test 143 MG/DL 70-110 H Perfor med by certified code = GLUBED) 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 [facility] GLUCOSE [id number] 18:11:00 Test Item Value Reference Range Interpretation Comments GLUCOSE BEDSIDE (test 152 MG/DL 70-110 H Perfor med by certified code = GLUBED) 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 [facility] GLUCOSE [id number] 13:24:00 Test Item Value Reference Range Interpretation Comments GLUCOSE BEDSIDE (test 120 MG/DL 70-110 H Perfor med by certified code = GLUBED) 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 [facility] BASIC METABOLIC [id number] 09:03:00 Test Item Value Reference Range Interpretation [...] the recommended for bhumika for GFRby the [facility] for Adults.The GFR will not calculate if th e sex is unknown or if thepatient's ag e is <18 years. CREATININE (test 4.1 mg/dL 0.6-1.3 H code = CREAT) CALCIUM (test code = 9.6 mg/dL 8.0-10.5 N CA) CBC W/AUTO [id number] 07:48:00 Test Item Value Reference Range Interpretation [...] REQUIRED (test NO code = MDIFF) GLUCOSE [id number] 20:09:00 Test Item Value Reference Range Interpretation Comments GLUCOSE BEDSIDE (test 172 MG/DL 70-110 H Perfor med by certified code = GLUBED) 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 [facility] GLUCOSE [id number] 15:48:00 Test Item Value Reference Range Interpretation Comments GLUCOSE BEDSIDE (test 108 MG/DL 70-110 N Perfor med by certified code = GLUBED) 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 [facility] GLUCOSE [id number] 11:35:00 Test Item Value Reference Range Interpretation Comments GLUCOSE BEDSIDE (test 172 MG/DL 70-110 H Perfor med by certified code = GLUBED) 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 [facility] GLUCOSE [id number] 08:25:00 Test Item Value Reference Range Interpretation Comments GLUCOSE BEDSIDE (test 186 MG/DL 70-110 H Perfor med by certified code = GLUBED) 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 [facility] BASIC METABOLIC [id number] 07:50:00 Test Item Value Reference Range Interpretation [...] code = 9.3 mg/dL 8.0-10.5 N CA) [id number] 07:50:00 Test Item Value Reference Range Interpretation Comments PHOSPHOROUS (test code = PHOS) 5.5 MG/DL 2.5-4.9 H [id number] 07:50:00 Test Item Value Reference Range Interpretation Comments MAGNESIUM (test code = MAG) 2.32 mg/dL 1.80-2.40 N CBC W/AUTO [id number] 07:28:00 Test Item Value Reference Range Interpretation [...] REQUIRED (test code NO = MDIFF) GLUCOSE [id number] 19:59:00 Test Item Value Reference Range Interpretation Comments GLUCOSE BEDSIDE (test 141 MG/DL 70-110 H Perfor med by certified code = GLUBED) 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 [facility] GLUCOSE [id number] 18:58:00 Test Item Value Reference Range Interpretation Comments GLUCOSE BEDSIDE (test 156 MG/DL 70-110 H Perfor med by certified code = GLUBED) 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 [facility] GLUCOSE [id number] 11:35:00 Test Item Value Reference Range Interpretation Comments GLUCOSE BEDSIDE (test 112 MG/DL 70-110 H Perfor med by certified code = GLUBED) 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 [facility] GLUCOSE [id number] 09:19:00 Test Item Value Reference Range Interpretation Comments GLUCOSE BEDSIDE (test 167 MG/DL 70-110 H Perfor med by certified code = GLUBED) 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 [facility] BASIC METABOLIC [id number] 08:14:00 Test Item Value Reference Range Interpretation [...] the recommended for bhumika for GFRby the [facility] for Adults.The GFR will not calculate if th e sex is unknown or if thepatient's ag e is <18 years. CREATININE (test 3.9 mg/dL 0.6-1.3 H code = CREAT) CALCIUM (test code = 9.1 mg/dL 8.0-10.5 N CA) BASIC METABOLIC [id number] 06:43:00 Test Item Value Reference Range Interpretation [...] be done morning of Heart CathCBC W/AUTO [id number] 06:23:00 Test Item Value Reference Range Interpretation [...] To be done morning of Heart CathGLUCOSE [id number] 21:04:00 Test Item Value Reference Range Interpretation Comments GLUCOSE BEDSIDE (test 99 MG/DL 70-110 N Perfor med by certified code = GLUBED) 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 [facility] GLUCOSE [id number] 16:53:00 Test Item Value Reference Range Interpretation Comments GLUCOSE BEDSIDE (test 147 MG/DL 70-110 H Perfor med by certified code = GLUBED) 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 [facility] GLUCOSE [id number] 15:43:00 Test Item Value Reference Range Interpretation Comments GLUCOSE BEDSIDE (test 154 MG/DL 70-110 H Perfor med by certified code = GLUBED) 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 [facility] [id number] 14:34:00 Test Item Value Reference Range Interpretation Comments ACT-ISTAT (test code 281 SEC 74-137 H Perform ed by certified = ACTI) 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 [facility] [id number] 08:42:00 Test Item Value Reference Range Interpretation Comments HGBA1C% (test code = HGBA1C%) 5.8 %A1C 4.8-6.0 N GLUCOSE [id number] 08:37:00 Test Item Value Reference Range Interpretation Comments GLUCOSE BEDSIDE (test 171 MG/DL 70-110 H Perfor med by certified code = GLUBED) 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 [facility] CBC W/AUTO [id number] 08:24:00 Test Item Value Reference Range Interpretation [...] (test code NO = MDIFF) BASIC METABOLIC [id number] 07:56:00 Test Item Value Reference Range Interpretation [...] the recommended for bhumika for GFRby the [facility] for Adults.The GFR will not calculate if th e sex is unknown or if thepatient's ag e is <18 years. CREATININE (test 4.9 mg/dL 0.6-1.3 H code = CREAT) CALCIUM (test code = 9.4 mg/dL 8.0-10.5 N CA) COAGULATION TIME [id number] 07:05:00 Test Item Value Reference Range Interpretation Comments COAGULATION TIME 245 SECONDS Performed b y ACTIVATED (test code = certi fied beamer operator ACT) at [facility] COAGULATION TIME [id number] 07:05:00 Test Item Value Reference Range Interpretation Comments COAGULATION TIME 234 SECONDS Performed b y ACTIVATED (test code = certi fied beamer operator ACT) at [facility] GLUCOSE [id number] 06:07:00 Test Item Value Reference Range Interpretation Comments GLUCOSE BEDSIDE (test 170 MG/DL 70-110 H Perfor med by certified code = GLUBED) 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 [facility] GLUCOSE [id number] 19:40:00 Test Item Value Reference Range Interpretation Comments GLUCOSE BEDSIDE (test 143 MG/DL 70-110 H Perfor med by certified code = GLUBED) 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 [facility] [id number] 17:22:00 Test Item Value Reference Range Interpretation Comments ACT-ISTAT (test code 275 SEC 74-137 H Perform ed by certified = ACTI) 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 [facility] [id number] 16:11:00 Test Item Value Reference Range Interpretation Comments ACT-ISTAT (test code 251 SEC 74-137 H Perform ed by certified = ACTI) 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 [facility] GLUCOSE [id number] 14:10:00 Test Item Value Reference Range Interpretation Comments GLUCOSE BEDSIDE (test 192 MG/DL 70-110 H Perfor med by certified code = GLUBED) 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 [facility] GLUCOSE [id number] 11:52:00 Test Item Value Reference Range Interpretation Comments GLUCOSE BEDSIDE (test 215 MG/DL 70-110 H Perfor med by certified code = GLUBED) 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 [facility] COVID 19 Asymptomatic IH [id number] 10:33:00 Test Item Value Reference Range Interpretation [...] moderate, high or waivedcomplexit y tests. GLUCOSE [id number] 08:19:00 Test Item Value Reference Range Interpretation Comments GLUCOSE BEDSIDE (test 220 MG/DL 70-110 H [facility] med by certified code = GLUBED) 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 [facility] COMPREHENSIVE METABOLIC [id number] 07:53:00 Test Item Value Reference Range Interpretation [...] the recommended for bhumika for GFRby the [facility] on for Adults.The GFR [...] 20-125 H TOTAL (test code = ALKP) [id number] 07:53:00 Test Item Value Reference Range Interpretation Comments PHOSPHOROUS (test code = PHOS) 6.8 MG/DL 2.5-4.9 H [id number] 07:53:00 Test Item Value Reference Range Interpretation Comments MAGNESIUM (test code = MAG) 2.24 mg/dL 1.80-2.40 GLUCOSE [id number] 06:28:00 Test Item Value Reference Range Interpretation Comments GLUCOSE BEDSIDE (test 214 MG/DL 70-110 H Perfor med by certified code = GLUBED) 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 [facility] CBC W/AUTO [id number] 05:40:00 Test Item Value Reference Range Interpretation [...] COMMENTS: [facility] [id number] 05:40:00 Test Item Value Reference Range Interpretation Comments ANISOCYTOSIS (test code = ANISO) SLIGHT MACROCYTOSIS (test code = MACR) FEW COMMENTS: To be done morning of Heart Cath- XR FOOT 3 + V [id number] 00:00:00 [facility] [place] : 1955 Sex: F FAX: Delmy Howell [phone] [place]: St: ADM FAX: Sybil Marques MD [phone] FAX:Jim Mazariegos MD [phone] Name: MESERET MOTTA [facility] : 1955 Age/S: 67/F [address] [place] [address] Unit #: [id number] Loc: G.4421 [place] [address] Phys: Sybil Byers MD Acct: [id number] Dis Date: Status: ADM IN PHONE #: [phone] Exam Date: 06/25/2022 1610 FAX #: [phone] Reason: L foot ulcers EXAMS: CPT CODE: [id number] XR FOOT 3 + [place] [address] PROCEDURE INFORMATION: Exam: XR Left Foot Exam [...] S: 06/26/2022 (0842) PAGE 1 Signed ReportGLUCOSE [id number] 19:44:00 Test Item Value Reference Range Interpretation Comments GLUCOSE BEDSIDE (test 198 MG/DL 70-110 H Perfor med by certified code = GLUBED) 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 [facility] GLUCOSE [id number] 16:13:00 Test Item Value Reference Range Interpretation Comments GLUCOSE BEDSIDE (test 189 MG/DL 70-110 H Perfor med by certified code = GLUBED) 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 [facility] GLUCOSE [id number] 11:12:00 Test Item Value Reference Range Interpretation Comments GLUCOSE BEDSIDE (test 186 MG/DL 70-110 H Perfor med by certified code = GLUBED) 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 [facility] CBC W/AUTO [id number] 10:49:00 Test Item Value Reference Range Interpretation [...] MDIFF) COMMENTS: Daily while on HeparinCOMPREHENSIVE METABOLIC [id number] 07:37:00 Test Item Value Reference Range Interpretation [...] recommended for bhumika for GFRby the [facility] for Adults.The GFR will [...] H TOTAL (test code = ALKP) GLUCOSE [id number] 05:53:00 Test Item Value Reference Range Interpretation Comments GLUCOSE BEDSIDE (test 159 MG/DL 70-110 H Perfor med by certified code = GLUBED) 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 [facility] GLUCOSE [id number] 19:09:00 Test Item Value Reference Range Interpretation Comments GLUCOSE BEDSIDE (test 171 MG/DL 70-110 H Perfor med by certified code = GLUBED) 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 [facility] GLUCOSE [id number] 15:56:00 Test Item Value Reference Range Interpretation Comments GLUCOSE BEDSIDE (test 159 MG/DL 70-110 H Perfor med by certified code = GLUBED) 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 [facility] GLUCOSE [id number] 12:56:00 Test Item Value Reference Range Interpretation Comments GLUCOSE BEDSIDE (test 110 MG/DL 70-110 N Perfor med by certified code = GLUBED) 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 [facility] ACUTE HEPATITIS [id number] 12:08:00 Test Item Value Reference Range Interpretation Comments AB HEPATITIS A IGM (test NON REACTIVE INDEX NON REACT. code = HAVMAB) AG HEPATITIS B SURFACE NON REACTIVE INDEX NonReactive (test code = HBSAG) AB HEPATITIS B CORE IGM NON REACTIVE INDEX NON REACT. (test code = HBCMAB) AB HEPATITIS C (test code NON REACTIVE INDEX NON REACT. = HCVAB) AB HEPATITIS B [id number] 12:08:00 Test Item Value Reference Range Interpretation Comments AB HEPATITIS B 11.7 mIU/mL See_Comment Verified by repeat SURFACE (test code = analysi s Status of HBSAB) Immunity Anti-H Bs Level --- I nconsis tent with Immun ity 0.0 - 9.9Consistent with Immunity >9.9Pe rformed At: [facility] [id number] [facility] [place], [place] [id number] Kota Loera MD Ph:[phone] [Automated mess age] The system [employer]™ generated this result transmitted ref erence range: Immunity >9.9. The reference r chikis was not used to interpret this result as normal/abnor mal. BASIC METABOLIC [id number] 08:08:00 Test Item Value Reference Range Interpretation [...] code = 9.9 mg/dL 8.0-10.5 N CA) [id number] 08:08:00 Test Item Value Reference Range Interpretation Comments PHOSPHOROUS (test code = PHOS) 7.1 MG/DL 2.5-4.9 H [id number] 08:08:00 Test Item Value Reference Range Interpretation Comments MAGNESIUM (test code = MAG) 2.64 mg/dL 1.80-2.40 H CBC W/AUTO [id number] 07:09:00 Test Item Value Reference Range Interpretation [...] = MDIFF) COMMENTS: Daily while on HeparinGLUCOSE [id number] 05:45:00 Test Item Value Reference Range Interpretation Comments GLUCOSE BEDSIDE (test 190 MG/DL 70-110 H Perfor med by certified code = GLUBED) 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 [facility] GLUCOSE [id number] 19:34:00 Test Item Value Reference Range Interpretation Comments GLUCOSE BEDSIDE (test 159 MG/DL 70-110 H Perfor med by certified code = GLUBED) 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 [facility] GLUCOSE [id number] 17:04:00 Test Item Value Reference Range Interpretation Comments GLUCOSE BEDSIDE (test 167 MG/DL 70-110 H Perfor med by certified code = GLUBED) 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 [facility] UA RFLX MICR CULT IF [id number] 16:38:00 Test Item Value Reference Range Interpretation [...] for culture: Gross HematuriaSpecimen Description: CLEAN CATCHGLUCOSE [id number] 12:14:00 Test Item Value Reference Range Interpretation Comments GLUCOSE BEDSIDE (test 147 MG/DL 70-110 H Perfor med by certified code = GLUBED) 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 [facility] THROMBOPLASTIN TIME [id number] 11:46:00 Test Item Value Reference Range Interpretation Comments THROMBOPLASTIN TIME 72.0 Seconds 25.0-39.5 H Therape utic Range: PARTIAL (test code = 50.4 - 88.3 Seconds PTT) Effective 10/22/2018 GLUCOSE [id number] 06:01:00 Test Item Value Reference Range Interpretation Comments GLUCOSE BEDSIDE (test 246 MG/DL 70-110 H Perfor med by certified code = GLUBED) 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 [facility] THROMBOPLASTIN TIME [id number] 05:17:00 Test Item Value Reference Range Interpretation Comments THROMBOPLASTIN TIME 53.5 Seconds 25.0-39.5 H Therape utic Range: PARTIAL (test code = 50.4 - 88.3 Seconds PTT) Effective 10/22/2018 CBC W/AUTO [id number] 04:16:00 Test Item Value Reference Range Interpretation [...] Daily while on Heparin- CT CHEST W/O [id number] 00:00:00 [facility] 1955 Sex: F Name: MESERET MOTTA [facility] : 1955 Age/S: 67 / F [address] [place] [address] Blvd Unit #: [id number] Loc: [place] [address] Phys: Aleja Funk Acct: [id number] Dis Date: Status: ADM INPHONE #: [phone] Exam Date: 06/22/2022 09 FAX #: [phone] Reason: Dyspnea, CAD EXAMS: CPT CODE: [id number] CT CHEST W/O CONTRAST 71232 PROCEDURE INFORMATION: Exam: CT Chest Without Contrast;Diagnostic [...] catheters and devices: A left internal jugular dialysiscatheter is in place. Lungs: There are patchy [...] skeletal hyperostosis (DISH). Soft tissues: There is diffusebody wall edema. IMPRESSION: 1. There is a [...] edema. PAGE 1 Signed Report (CONTINUED) Name: MESERET MOTTA [facility] : 1955 Age/S: 67 / F [address] [place] [address] Unit #: [id number] Loc: [place] [address] Phys: Aleja Funk Acct: [id number] Dis Date: Status: ADM IN PHONE #: [phone] Exam Date: 06/22/2022 09 FAX #: [phone] Reason: Dyspnea, CAD EXAMS: CPT CODE: [id number] CT CHEST W/O CONTRAST 10923 (Continued) 4. There is a small araceli cardial effusion, slightly increased in size compared to prior study. 5. There is a small amount of ascites in the visualized abdomen. at 0904 Reported and signed by: Jim Uriostegui M.D. CC: Delmy Ashton MD; Jim Dhillon MD; Aleja OROZCO Technologist:RT Hailey(R)(CT) CTDI: DLP: Trnscb Date/Time: 06/23/2022 (903) DanieMR72 Orig Print D/T: S: 06/23/2022 (903) PAGE 2 Signed ReportGLUCOSE [id number] 22:01:00 Test Item Value Reference Range Interpretation Comments GLUCOSE BEDSIDE (test 186 MG/DL 70-110 H Perfor med by certified code = GLUBED) 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 [facility] THROMBOPLASTIN TIME [id number] 21:11:00 Test Item Value Reference Range Interpretation Comments THROMBOPLASTIN TIME 51.2 Seconds 25.0-39.5 H Therape utic Range: PARTIAL (test code = 50.4 - 88.3 Seconds PTT) Effective 10/22/2018 GLUCOSE [id number] 18:42:00 Test Item Value Reference Range Interpretation Comments GLUCOSE BEDSIDE (test 125 MG/DL 70-110 H Perfor med by certified code = GLUBED) 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 [facility] THROMBOPLASTIN TIME [id number] 13:02:00 Test Item Value Reference Range Interpretation Comments THROMBOPLASTIN TIME 40.0 Seconds 25.0-39.5 H Therape utic Range: PARTIAL (test code = 50.4 - 88.3 Seconds PTT) Effective 10/22/2018 PTH INTACT [id number] 12:41:00 Test Item Value Reference Range Interpretation Comments PARATHYROID HORMONE INTACT (test 661.2 pg/mL 14.0-72.0 H code = PARAI) B-TYPE NATRIURETIC [id number] 12:23:00 Test Item Value Reference Range Interpretation Comments B-TYPE NATRIURETIC PEPTIDE (test 557.0 PG/ML 0-100 H code = BNP) PROTHROMBIN [id number] 12:06:00 Test Item Value Reference Range Interpretation [...] risk), 2. 5 - 3.5 Presence of [place] pus Anticoagulant o r Antiphospholipi d Antibodies, Pre vention of systemic emb olism - Acute Myocardia l Infarction (to prevent recurrent infar ct). BASIC METABOLIC [id number] 12:04:00 Test Item Value Reference Range Interpretation [...] 9.4 mg/dL 8.0-10.5 N CA) CBC W/AUTO [id number] 11:56:00 Test Item Value Reference Range Interpretation [...] REQUIRED (test NO code = MDIFF) GLUCOSE [id number] 05:45:00 Test Item Value Reference Range Interpretation Comments GLUCOSE BEDSIDE (test 214 MG/DL 70-110 H Perfor med by certified code = GLUBED) 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 [facility] THROMBOPLASTIN TIME [id number] 01:28:00 Test Item Value Reference Range Interpretation Comments THROMBOPLASTIN TIME 30.3 Seconds 25.0-39.5 N Therape utic Range: PARTIAL (test code = 50.4 - 88.3 Seconds PTT) Effective 10/22/2018 COMMENTS: DRAW PTT 6 HOURS AFTER INITIATION OF HEPARIN- DUP VEIN [id number] 00:00[facility] : 1955 Sex: F Name: MESERET MOTTA [facility] : 1955 Age/S: 67 / F [address] [place] [address] Unit #: [id number] Loc: [place] [address] Phys: Aleja Funk Acct: [id number] Dis Date: Status: ADM IN PHONE #: [phone] Exam Date: 06/22/2022 1510 FAX #: [phone] Reason: Vein mapping for CABG EXAMS: CPT CODE: [id number] DUP VEIN JARRETT 02560 PROCEDURE INFORMATION: Exam: US Duplex Lower Extremity [...] vein-upper le mm Left greater saphenous vein-mid le.5mm Left greater saphenous vein-lower le.8 mm Soft tissues: Unremarkable. IMPRESSION: Greater saphenous vein is patent. Vein mapping as described. at 1730 Reported and signed by: Gelnn Obando M.D. CC: Delmy Ashton MD; Jim Dhillon MD; Aleja OROZCO Technologist: Monty Thomas Trnscb Date/Time: 06/22/2022 (1729) [email or web address] Orig Print D/T: S: 06/22/2022 (1729) Probe: PAGE 1 Signed Report- DOP ART SGL LEVEL [id number] 00:00:00 [facility] : 1955 Sex: F Name: MESERET MOTTA [facility] : 1955 Age/S: 67 / F [address] Unit #: [id number] Loc: [place] [address] Phys: GoodAlejapaula OROZCO Acct: [id number] Dis Date: Status: ADM INPHONE #: [phone] Exam Date: 06/22/2022 1509 FAX #: [phone] Reason: PVD EXAMS: CPT CODE: [id number] DOP ART SGL LEVEL JARRETT 24123 PROCEDURE INFORMATION: Exam: US Duplex Lower Extremity [...] 1 Signed Report (CONTINUED) Name: MESERET MOTTA [facility] [place] : 1955 Age/S: 67 / F [address] Unit #: [id number] Loc: [place] [address] Phys: Aleja Funk Acct: [id number] Dis Date: Status: ADM IN PHONE #: [phone] Exam Date: 06/22/2022 1509 FAX #: [phone] Reason: PVD EXAMS: CPT CODE: [id number] DOP ART SGL LEVEL JARRETT 25361 (Continued) CC: Delmy Ashotn MD; Jim Dhillon MD; Aleja OROZCO Technologist: Monty Thomas Trnazb Date/Time: 06/22/2022(1654) [email or web address] Orig Print D/T: S: 06/22/2022 (1654) Probe: PAGE 2 Signed Report- DUP EXTRACRANIAL [id number] 00:00:00 [facility] 1955 Sex: F Name: MESERET MOTTA [facility] [place] : 1955 Age/S: 67 / F [address] Unit #: [id number] Loc: [place] [address] Phys: Aleja Funk Acct: [id number] Dis Date: Status: ADM INPHONE #: [phone] Exam Date: 06/22/2022 1509 FAX #: [phone] Reason: CABG workup EXAMS: CPT CODE: [id number] DUP EXTRACRANIAL JARRETT 72317 PROCEDURE INFORMATION: Exam: US Duplex Bilateral Extracranial [...] Reported and signed by: Paramjit Villar M.D. [facility] 1 Signed Report (CONTINUED) Name: MESERET MOTTA [facility] : 1955 Age/S: 67 / F[address] Unit #: [id number] Loc: [place] [address] Phys: Aleja Funk Acct: [id number] Dis Date: Status: ADM IN PHONE #: [phone] Exam Date: 06/22/2022 9020 FAX #: [phone] Reason: CABG workup EXAMS: CPT CODE: [id number] DUP EXTRACRANIAL JARRETT 95473 (Continued) CC: Delmy Ashton MD; Jim Dhillon MD; Aleja OROZCO Technologist: Monty Thomas Trnscb Date/Time: 06/22/2022 (1806) Afua Orig Print D/T: S: 06/22/2022 (1807) Probe: PAGE 2 Signed ReportGLUCOSE BEDSIDE 2022-06-21 20:43:00 Test Item Value Reference Range Interpretation Comments GLUCOSE BEDSIDE (test 226 MG/DL 70-110 H Perfor med by certified code = GLUBED) 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 [facility] CBC W/AUTO [id number] 20:20:00 Test Item Value Reference Range Interpretation [...] NOT ALREADY DONE WITHIN LAST 24 HOURSGLUCOSE [id number] 18:45:00 Test Item Value Reference Range Interpretation Comments GLUCOSE BEDSIDE (test 168 MG/DL 70-110 H Perfor med by certified code = GLUBED) 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2022-10-19 16:16:00 Test Item Value Reference Range Interpretation Comments POC glucose (test 89 mg/dL 65-99 Cane Furniture Maker N desire: Rubin code = 45141-8) EricDevice I D: [id number] able: RN Notified [facility]2022-10-19 16:16:00 Test Item Value Reference Range Interpretation Comments POC glucose (test 89 mg/dL 65-99 Cane Furniture Maker N desire: Rubin code = 48396-1) EricDevice I D: [id number] able: RN Notified [facility]2022-10-19 16:16:00 Test Item Value Reference Range Interpretation Comments POC glucose (test 89 mg/dL 65-99 Cane Furniture Maker N desire: Rubin code = 22106-8) EricDevice I D: [id number] able: RN Notified [facility]2022-10-19 16:16:00 Test Item Value Reference Range Interpretation Comments POC glucose (test 89 mg/dL 65-99 Cane Furniture [employer] N desire: Rubin code = 89753-1) EricDevice I D: [id number] able: RN Notified [facility]2022-10-19 16:16:00 Test Item Value Reference Range Interpretation Comments POC glucose (test 89 mg/dL 65-99 [employer] Furn[employer] N desire: Rubin code = 10253-7) EricDevice I D: [id number] able: RN Notified [facility] [id number] 16:16:00 Test Item Value Reference Range Interpretation Comments POC glucose (test 89 mg/dL 65-99 Cane Furniture [employer] N desire: Rubin code = 75217-5) EricDevice I D: [id number] able: RN Notified [facility] [id number] 16:16:00 Test Item Value Reference Range Interpretation Comments POC glucose (test 89 mg/dL 65-99 [employer] Furn[employer] N desire: Rubin code = 01662-2) EricDevice I D: [id number] able: RN Notified [facility]2022-10-19 16:16:00 Test Item Value Reference Range Interpretation Comments POC glucose (test 89 mg/dL 65-99 Cane Furniture Maker N desire: Rubin code = 89032-2) EricDevice I D: [id number] able: RN Notified [facility]2022-10-19 16:16:00 Test Item Value Reference Range Interpretation Comments POC glucose (test 89 mg/dL 65-99 Cane Furniture Maker N desire: Rubin code = 51480-8) EricDevice I D: [id number] able: RN Notified [facility]2022-10-19 16:16:00 Test Item Value Reference Range Interpretation Comments POC glucose (test 89 mg/dL 65-99 Cane Furniture Maker N desire: Rubin code = 31462-5) EricDevice I D: [id number] able: RN Notified [facility] [id number] 16:16:00 Test Item Value Reference Range Interpretation Comments POC glucose (test 89 mg/dL 65-99 Cane Furniture Maker N desire: Rubin code = 63303-2) EricDevice I D: [id number] able: RN Notified [facility] [id number] 13:03:01 Test Item Value Reference Range Interpretation Comments POC sodium (test code = 140 mmol/L 270-337 0123-0) POC potassium (test code 3.9 mmol/L 3.5-5.0 = 6298-4) POC glucose (test code = 78 mg/dL 65-99 2339-0) POC creatinine (test 4.6 mg/dl 0.5-0.9 H Operato r Name: code = 60468-8) Marko kyle ID: [id number] POC hemoglobin (test 8.5 g/dL 12.0-16.0 L code = 718-7) POC hematocrit (test 25 % 37-47 L code = 4544-3) Lab Interpretation (test Abnormal code = 60869-5) [facility]2022-10-19 13:03:01 Test Item Value Reference Range Interpretation Comments POC sodium (test code = 140 mmol/L 927-635 1418-0) POC potassium (test code 3.9 mmol/L 3.5-5.0 = 6298-4) POC glucose (test code = 78 mg/dL 65-99 2339-0) POC creatinine (test 4.6 mg/dl 0.5-0.9 H Operato r Name: code = 44582-4) Marko kyle ID: [id number] POC hemoglobin (test 8.5 g/dL 12.0-16.0 L code = 718-7) POC hematocrit (test 25 % 37-47 L code = 4544-3) Lab Interpretation (test Abnormal code = 79731-6) [facility]2022-10-19 13:03:01 Test Item Value Reference Range Interpretation Comments POC sodium (test code = 140 mmol/L 725-292 3929-0) POC potassium (test code 3.9 mmol/L 3.5-5.0 = 6298-4) POC glucose (test code = 78 mg/dL 65-99 2339-0) POC creatinine (test 4.6 mg/dl 0.5-0.9 H Operato r Name: code = 64903-7) Marko kyle ID: [id number] POC hemoglobin (test 8.5 g/dL 12.0-16.0 L code = 718-7) POC hematocrit (test 25 % 37-47 L code = 4544-3) Lab Interpretation (test Abnormal code = 30006-2) [facility]2022-10-19 13:03:01 Test Item Value Reference Range Interpretation Comments POC sodium (test code = 140 mmol/L 217-814 2633-0) POC potassium (test code 3.9 mmol/L 3.5-5.0 = 6298-4) POC glucose (test code = 78 mg/dL 65-99 2339-0) POC creatinine (test 4.6 mg/dl 0.5-0.9 H Operato r Name: code = 46969-7) Marko kyle ID: [id number] POC hemoglobin (test 8.5 g/dL 12.0-16.0 L code = 718-7) POC hematocrit (test 25 % 37-47 L code = 4544-3) Lab Interpretation (test Abnormal code = 33020-6) [facility]2022-10-19 13:03:01 Test Item Value Reference Range Interpretation Comments POC sodium (test code = 140 mmol/L 854-701 0461-0) POC potassium (test code 3.9 mmol/L 3.5-5.0 = 6298-4) POC glucose (test code = 78 mg/dL 65-99 2339-0) POC creatinine (test 4.6 mg/dl 0.5-0.9 H Operato r Name: code = 89773-7) Marko kyle ID: [id number] POC hemoglobin (test 8.5 g/dL 12.0-16.0 L code = 718-7) POC hematocrit (test 25 % 37-47 L code = 4544-3) Lab Interpretation (test Abnormal code = 85714-6) [facility]2022-10-19 13:03:01 Test Item Value Reference Range Interpretation Comments POC sodium (test code = 140 mmol/L 304-140 8886-0) POC potassium (test code 3.9 mmol/L 3.5-5.0 = 6298-4) POC glucose (test code = 78 mg/dL 65-99 2339-0) POC creatinine (test 4.6 mg/dl 0.5-0.9 H Operato r Name: code = 87997-6) Marko kyle ID: [id number] POC hemoglobin (test 8.5 g/dL 12.0-16.0 L code = 718-7) POC hematocrit (test 25 % 37-47 L code = 4544-3) Lab Interpretation (test Abnormal code = 41671-0) [facility]2022-10-19 13:03:01 Test Item Value Reference Range Interpretation Comments POC sodium (test code = 140 mmol/L 672-474 9214-0) POC potassium (test code 3.9 mmol/L 3.5-5.0 = 6298-4) POC glucose (test code = 78 mg/dL 65-99 2339-0) POC creatinine (test 4.6 mg/dl 0.5-0.9 H Operato r Name: code = 79207-1) Zhu Madhav kyle ID: [id number] POC hemoglobin (test 8.5 g/dL 12.0-16.0 L code = 718-7) POC hematocrit (test 25 % 37-47 L code = 4544-3) Lab Interpretation (test Abnormal code = 04105-3) [facility]2022-10-19 13:03:01 Test Item Value Reference Range Interpretation Comments POC sodium (test code = 140 mmol/L 605-311 3283-0) POC potassium (test code 3.9 mmol/L 3.5-5.0 = 6298-4) POC glucose (test code = 78 mg/dL 65-99 2339-0) POC creatinine (test 4.6 mg/dl 0.5-0.9 H Operato r Name: code = 67173-1) Zhu Madhav kyle ID: [id number] POC hemoglobin (test 8.5 g/dL 12.0-16.0 L code = 718-7) POC hematocrit (test 25 % 37-47 L code = 4544-3) Lab Interpretation (test Abnormal code = 81305-8) [facility]2022-10-19 13:03:01 Test Item Value Reference Range Interpretation Comments POC sodium (test code = 140 mmol/L 046-184 4360-0) POC potassium (test code 3.9 mmol/L 3.5-5.0 = 6298-4) POC glucose (test code = 78 mg/dL 65-99 2339-0) POC creatinine (test 4.6 mg/dl 0.5-0.9 H Operato r Name: code = 94285-1) Marko kyle ID: [id number] POC hemoglobin (test 8.5 g/dL 12.0-16.0 L code = 718-7) POC hematocrit (test 25 % 37-47 L code = 4544-3) Lab Interpretation (test Abnormal code = 30509-5) [facility]2022-10-19 13:03:01 Test Item Value Reference Range Interpretation Comments POC sodium (test code = 140 mmol/L 352-379 8810-0) POC potassium (test code 3.9 mmol/L 3.5-5.0 = 6298-4) POC glucose (test code = 78 mg/dL 65-99 2339-0) POC creatinine (test 4.6 mg/dl 0.5-0.9 H Operato r Name: code = 60073-2) Zhu Madhav kyle ID: [id number] POC hemoglobin (test 8.5 g/dL 12.0-16.0 L code = 718-7) POC hematocrit (test 25 % 37-47 L code = 4544-3) Lab Interpretation (test Abnormal code = 96764-5) [facility]2022-10-19 13:03:01 Test Item Value Reference Range Interpretation Comments POC sodium (test code = 140 mmol/L 865-986 3312-0) POC potassium (test code 3.9 mmol/L 3.5-5.0 = 6298-4) POC glucose (test code = 78 mg/dL 65-99 2339-0) POC creatinine (test 4.6 mg/dl 0.5-0.9 H Operato r Name: code = 18219-4) Zhu Madhav kyle ID: [id number] POC hemoglobin (test 8.5 g/dL 12.0-16.0 L code = 718-7) POC hematocrit (test 25 % 37-47 L code = 4544-3) Lab Interpretation (test Abnormal code = 50322-8) [facility]2022-10-19 13:03:01 Test Item Value Reference Range Interpretation Comments POC sodium (test code = 140 mmol/L 002-966 4540-0) POC potassium (test code 3.9 mmol/L 3.5-5.0 = 6298-4) POC glucose (test code = 78 mg/dL 65-99 2339-0) POC creatinine (test 4.6 mg/dl 0.5-0.9 H Operato r Name: code = 19544-5) Marko kyle ID: [id number] POC hemoglobin (test 8.5 g/dL 12.0-16.0 L code = 718-7) POC hematocrit (test 25 % 37-47 L code = 4544-3) Lab Interpretation (test Abnormal code = 74028-1) [facility] [id number] 13:03:00 Test Item Value Reference Range Interpretation Comments Estimated GFR (test mL/min/1.73 m2 A Caterg ory Units code = 13561-7) Interpretati onG1 >=90 Normal or highG 2 60-89 Mildly decrease dG3a 45-59 Mildly to moderately decr zseidX3j 30-44 Moderatel y to severely decrea sedG4 15-29 Severely decreasedG5 <15 Kidney failureThe eGFR was calculated usin g the Chronic Kidney Disease Epidemiology Collaboration ( CKD-EPI) equation. Interpretation is based on recommendati ons of the [facility] Disease Outcome s Quality Initiat hermes (NK-KDOQI) pub lished in 2013. Lab Interpretation Abnormal (test code = 79780-3) [facility] [id number] 13:03:00 Test Item Value Reference Range Interpretation Comments Estimated GFR (test 9 mL/min/1.73 m2 A Caterg ory Units code = 42916-6) Interpretati onG1 >=90 Normal or highG 2 60-89 Mildly decrease dG3a 45-59 Mildly to moderately decr eythpY4o 30-44 Moderatel y to severely decrea sedG4 15-29 Severely decreasedG5 <15 Kidney failureThe eGFR was calculated usin g the Chronic Kidney Disease Epidemiology Collaboration ( CKD-EPI) equation. Interpretation is based on recommendati ons of the [facility] [employer] [facility] Disease Outcome s Quality Initiat hermes (NKF-KDOQI) pub lished in 2013. Lab Interpretation Abnormal (test code = 39480-1) [facility] [id number] 13:03:00 Test Item Value Reference Range Interpretation Comments Estimated GFR (test 9 mL/min/1.73 m2 A Caterg ory Units code = 12795-2) Interpretati onG1 >=90 Normal or highG 2 60-89 Mildly decrease dG3a 45-59 Mildly to moderately decr skcsmP7q 30-44 Moderatel y to severely decrea sedG4 15-29 Severely decreasedG5 <15 Kidney failureThe eGFR was calculated usin g the Chronic Kidney Disease Epidemiology Collaboration ( CKD-EPI) equation. Interpretation is based on recommendati ons of the [facility] Disease Outcome s Quality Initiat hermes (NK-KDOQI) pub lished in 2013. Lab Interpretation Abnormal (test code = 06464-5) [facility] [id number] 13:03:00 Test Item Value Reference Range Interpretation Comments Estimated GFR (test 9 mL/min/1.73 m2 A Caterg ory Units code = 85742-5) Interpretati onG1 >=90 Normal or highG 2 60-89 Mildly decrease dG3a 45-59 Mildly to moderately decr zwulvJ8x 30-44 Moderatel y to severely decrea sedG4 15-29 Severely decreasedG5 <15 Kidney failureThe eGFR was calculated usin g the Chronic Kidney Disease Epidemiology Collaboration ( CKD-EPI) equation. Interpretation is based on recommendati ons of the [facility] Disease Outcome s Quality Initiat hermes (NK-KDOQI) pub lished in 2013. Lab Interpretation Abnormal (test code = 56444-4) [facility] [id number] 13:03:00 Test Item Value Reference Range Interpretation Comments Estimated GFR (test 9 mL/min/1.73 m2 A Caterg ory Units code = 97846-8) Interpretati onG1 >=90 Normal or highG 2 60-89 Mildly decrease dG3a 45-59 Mildly to moderately decr vsgihF5c 30-44 Moderatel y to severely decrea sedG4 15-29 Severely decreasedG5 <15 Kidney failureThe eGFR was calculated usin g the Chronic Kidney Disease Epidemiology Collaboration ( CKD-EPI) equation. Interpretation is based on recommendati ons of the [facility] Disease Outcome s Quality Initiat hermes ([facility]-KDOQI) pub lished in 2013. Lab Interpretation Abnormal (test code = 35726-4) [facility] [id number] 13:03:00 Test Item Value Reference Range Interpretation Comments Estimated GFR (test 9 mL/min/1.73 m2 A Caterg ory Units code = 13093-7) Interpretati onG1 >=90 Normal or highG 2 60-89 Mildly decrease dG3a 45-59 Mildly to moderately decr qcczmF1w 30-44 Moderatel y to severely decrea sedG4 15-29 Severely decreasedG5 <15 Kidney failureThe eGFR was calculated usin g the Chronic Kidney Disease Epidemiology Collaboration ( CKD-EPI) equation. Interpretation is based on recommendati ons of the [facility] Disease Outcome s Quality Initiat hermes ([facility]-KDOQI) pub lished in 2013. Lab Interpretation Abnormal (test code = 66790-3) [facility] [id number] 13:03:00 Test Item Value Reference Range Interpretation Comments Estimated GFR (test 9 mL/min/1.73 m2 A Caterg ory Units code = 87768-3) Interpretati onG1 >=90 Normal or highG 2 60-89 Mildly decrease dG3a 45-59 Mildly to moderately decr twuhsT3o 30-44 Moderatel y to severely decrea sedG4 15-29 Severely decreasedG5 <15 Kidney failureThe eGFR was calculated usin g the Chronic Kidney Disease Epidemiology Collaboration ( CKD-EPI) equation. Interpretation is based on recommendati ons of the [facility] Disease Outcome s Quality Initiat hermes ([facility]-KDOQI) pub lished in 2013. Lab Interpretation Abnormal (test code = 69661-8) [facility] [id number] 13:03:00 Test Item Value Reference Range Interpretation Comments Estimated GFR (test 9 mL/min/1.73 m2 A Caterg ory Units code = 56205-8) Interpretati onG1 >=90 Normal or highG 2 60-89 Mildly decrease dG3a 45-59 Mildly to moderately decr dpncyM7g 30-44 Moderatel y to severely decrea sedG4 15-29 Severely decreasedG5 <15 Kidney failureThe eGFR was calculated usin g the Chronic Kidney Disease Epidemiology Collaboration ( CKD-EPI) equation. Interpretation is based on recommendati ons of the [facility] Disease Outcome s Quality Initiat hermes (NK-KDOQI) pub lished in 2013. Lab Interpretation Abnormal (test code = 94267-3) [facility] [id number] 13:03:00 Test Item Value Reference Range Interpretation Comments Estimated GFR (test 9 mL/min/1.73 m2 A Caterg ory Units code = 37144-1) Interpretati onG1 >=90 Normal or highG 2 60-89 Mildly decrease dG3a 45-59 Mildly to moderately decr zcqeeB2i 30-44 Moderatel y to severely decrea sedG4 15-29 Severely decreasedG5 <15 Kidney failureThe eGFR was calculated usin g the Chronic Kidney Disease Epidemiology Collaboration ( CKD-EPI) equation. Interpretation is based on recommendati ons of the [facility] Disease Outcome s Quality Initiat hermes ([facility]) pub lished in 2013. Lab Interpretation Abnormal (test code = 83651-8) [facility] [id number] 13:03:00 Test Item Value Reference Range Interpretation Comments Estimated GFR (test 9 mL/min/1.73 m2 A Caterg ory Units code = 69261-8) Interpretati onG1 >=90 Normal or highG 2 60-89 Mildly decrease dG3a 45-59 Mildly to moderately decr abijfM6s 30-44 Moderatel y to severely decrea sedG4 15-29 Severely decreasedG5 <15 Kidney failureThe eGFR was calculated usin g the Chronic Kidney Disease Epidemiology Collaboration ( CKD-EPI) equation. Interpretation is based on recommendati ons of the [facility] Disease Outcome s Quality Initiat hermes ([facility]DO[facility]) pub lished in 2013. Lab Interpretation Abnormal (test code = 10098-8) [facility] [id number] 13:03:00 Test Item Value Reference Range Interpretation Comments Estimated GFR (test 9 mL/min/1.73 m2 A Caterg ory Units code = 04928-4) Interpretati onG1 >=90 Normal or highG 2 60-89 Mildly decrease dG3a 45-59 Mildly to moderately decr eaioyQ0a 30-44 Moderate ly to severely decrea sedG4 15-29 Severely decreasedG5 <15 Kidney failureThe eGFR was calculated usin g the Chronic Kidney Disease Epidemiology Collaboration ( CKD-EPI) equation. Interpretation is based on recommendati ons of the [facility] Disease Outcome s Quality Initiat hermes ([facility]) pub lished in 2013. Lab Interpretation Abnormal (test code = 84872-8) [facility] [id number] 13:03:00 Test Item Value Reference Range Interpretation Comments Estimated GFR (test 9 mL/min/1.73 m2 Malena souza Units code = 83232-5) Interpretati onG1 >=90 Normal or highG 2 60-89 Mildly decrease dG3a 45-59 Mildly to moderately decr gauhgW7t 30-44 Moderatel y to severely decrea sedG4 15-29 Severely decreasedG5 <15 Kidney failureThe eGFR was calculated usin g the Chronic Kidney Disease Epidemiology Collaboration ( CKD-EPI) equation. Interpretation is based on recommendati ons of the [facility] Disease Outcome s Quality Initiat hermes ([facility]) pub lished in 2013. Lab Interpretation Abnormal (test code = 27756-9) [facility] [id number] 19:03:18 Test Item Value Reference Range Interpretation Comments Case number (test code = [id number]) Surgical pathology See link below for report (test code = PDF Lab Report 2255) Result status (test code This is Final Report = [id number]) for [id number] [facility] [id number] 19:03:18 Test Item Value Reference Range Interpretation Comments Case number (test code = [id number]) Surgical pathology See link below for report (test code = PDF Lab Report 2255) Result status (test code This is Final Report = 8175857) for [id number] [facility] [id number] 19:03:18 Test Item Value Reference Range Interpretation Comments Case number (test code = [id number]) Surgical pathology See link below for report (test code = PDF Lab Report 2255) Result status (test code This is Final Report = 3460634) for [id number] [facility] [id number] 19:03:18 Test Item Value Reference Range Interpretation Comments Case number (test code = [id number]) Surgical pathology See link below for report (test code = PDF Lab Report 2255) Result status (test code This is Final Report = 7499752) for [id number] pathology [id number] 19:03:18 Test Item Value Reference Range Interpretation Comments Case number (test code = [id number]) Surgical pathology See link below for report (test code = PDF Lab Report 2255) Result status (test code This is Final Report = 5980184) for [id number] [facility] pathology [id number] 19:03:18 Test Item Value Reference Range Interpretation Comments Case number (test code = [id number]) Surgical pathology See link below for report (test code = PDF Lab Report 2255) Result status (test code This is Final Report = 1474721) for [id number] [place] [address] pathology [id number] 19:03:18 Test Item Value Reference Range Interpretation Comments Case number (test code = [id number]) Surgical pathology See link below for report (test code = PDF Lab Report 2255) Result status (test code This is Final Report = 0840980) for [id number] [place] [address] pathology [id number] 19:03:18 Test Item Value Reference Range Interpretation Comments Case number (test code = [id number]) Surgical pathology See link below for report (test code = PDF Lab Report 2255) Result status (test code This is Final Report = 7645844) for [id number] pathology [id number] 19:03:18 Test Item Value Reference Range Interpretation Comments Case number (test code = [id number]) Surgical pathology See link below for report (test code = PDF Lab Report 2255) Result status (test code This is Final Report = 1182776) for [id number] pathology [id number] 19:03:18 Test Item Value Reference Range Interpretation Comments Case number (test code = [id number]) Surgical pathology See link below for report (test code = PDF Lab Report 2255) Result status (test code This is Final Report = 1537112) for [id number] pathology [id number] 19:03:18 Test Item Value Reference Range Interpretation Comments Case number (test code = [id number]) Surgical pathology See link below for report (test code = PDF Lab Report 2255) Result status (test code This is Final Report = 0224988) for [id number] [facility] pathology [id number] 19:03:18 Test Item Value Reference Range Interpretation Comments Case number (test code = [id number]) Surgical pathology See link below for report (test code = PDF Lab Report 2255) Result status (test code This is Final Report = 0066398) for [id number] [facility] Pre/Post [id number] 10:49:53 Test Item Value Reference Range Interpretation Comments Ventricular rate (test code = 253) Atrial rate (test code = 255) MN interval (test code = 266) QRSD interval [...] wave inversion now evident in Inferior leads- [facility] Pre/Post [id number] 10:49:53 Test Item Value Reference Range Interpretation Comments Ventricular rate (test 101 code = 253) Atrial rate (test code 101 = 255) MN interval (test code 160 = 266) QRSD [...] wave inversion now evident in Inferior leads- [facility] Pre/Post [id number] 10:49:53 Test Item Value Reference Range Interpretation Comments Ventricular rate (test 101 code = 253) Atrial rate (test code 101 = 255) MN interval (test code 160 = 266) QRSD [...] wave inversion now evident in Inferior leads- [facility] Pre/Post [id number] 10:49:53 Test Item Value Reference Range Interpretation Comments Ventricular rate (test 101 code = 253) Atrial rate (test code 101 = 255) MN interval (test code 160 = 266) QRSD [...] wave inversion now evident in Inferior leads- [facility] Pre/Post [id number] 10:49:53 Test Item Value Reference Range Interpretation Comments Ventricular rate (test 101 code = 253) Atrial rate (test code 101 = 255) MN interval (test code 160 = 266) QRSD [...] wave inversion now evident in Inferior leads- [facility] Pre/Post [id number] 10:49:53 Test Item Value Reference Range Interpretation Comments Ventricular rate (test 101 code = 253) Atrial rate (test code 101 = 255) MN interval (test code 160 = 266) QRSD [...] wave inversion now evident in Inferior leads- [facility] Pre/Post [id number] 10:49:53 Test Item Value Reference Range Interpretation Comments Ventricular rate (test 101 code = 253) Atrial rate (test code 101 = 255) MN interval (test code 160 = 266) QRSD [...] wave inversion now evident in Inferior leads- [facility] Pre/Post [id number] 10:49:53 Test Item Value Reference Range Interpretation Comments Ventricular rate (test 101 code = 253) Atrial rate (test code 101 = 255) MN interval (test code 160 = 266) QRSD [...] wave inversion now evident in Inferior leads- [facility] Pre/Post [id number] 10:49:53 Test Item Value Reference Range Interpretation Comments Ventricular rate (test 101 code = 253) Atrial rate (test code 101 = 255) MN interval (test code 160 = 266) QRSD [...] wave inversion now evident in Inferior leads- [facility] Pre/Post [id number] 10:49:53 Test Item Value Reference Range Interpretation Comments Ventricular rate (test 101 code = 253) Atrial rate (test code 101 = 255) MN interval (test code 160 = 266) QRSD [...] wave inversion now evident in Inferior leads- [facility] GLUCOSE (AUTOMATED)2020-10-14 12:45:50 Test Item Value Reference Range Interpretation Comments POCT GLU (test code = 4183741033) 255 mg/dL 70-110 H Lab Interpretation (test code = Abnormal 12366-1) [facility] [id number] 12:35:00 Test Item Value Reference Range Interpretation Comments POCT Glu (age>30days) (test code = 255 mg/dL 70-110 A 3342) Lab Interpretation (test code = Abnormal 52215-2) [facility]-CoV-2 (COVID-19) RNA [Presence] in Respiratory specimen by JUANY with probe [id number] 01:15:19 Test Item Value Reference Range Interpretation Comments SARS-CoV-2 (COVID-19) RNA Not detected Not-Detected [Presence] in Respiratory specimen by JUANY with probe detection (test code = 18714-2) [facility] [id number] 12:03:00 Test Item Value Reference Range Interpretation Comments POCT Glu (age>30days) (test code = 142 mg/dL 70-110 A 3342) Lab Interpretation (test code = Abnormal 40203-0) [facility]-CoV-2 (COVID-19) RNA [Presence] in Respiratory specimen by JUANY with probe [id number] 18:03:16 Test Item Value Reference Range Interpretation Comments SARS-CoV-2 (COVID-19) RNA Not detected Not-Detected [Presence] in Respiratory specimen by JUANY with probe detection (test code = 40931-8) [facility] Notes Date/Time Note Provider Source 2022-07-11 13:52:00-00:00 [facility] ([facility]) Rehab Progress Note REPORT#:[id number] REPORT STATUS: Signed DATE:07/11/22 TIME: 1352 PATIENT: MESERET MOTTA UNIT #: [id number] ROOM/BED: [place] [address] : 56 AGE: 67 SEX: F ATTEND: Adonis Gaytan MD ADM AUTHOR: Lisa Vega NP * ALL edits or amendments must be made on the [employer]/computer document * Subjective Chief complaint: rehab follow-up [...] BUE +3/5 BLE HF -3/5 KE +3/5 Neuro/CHAINSTITCH SEWING MACHINE OPERATOR: sensory deficit ( decrease BLE), alert, oriented X 3, CNII-XII intact, normal speech Genitourinary: Diagnosis, Assessment Plan Free Text A P: 67-year-old female with weakness and impaired mo bility 2/2 cardiac myopathy positive for NSTEMI Multivessel CAD, acute on ch ronic diastolic heart failure -End-stage renal disease on hemodialysis -Severe PVD-(s/p POOL TABLE OPERATOR and ath erectomy with CSI followed by POOL TABLE OPERATOR with TAVR balloon on left anterior and [...] decubitus precautions Monitor labs Wound care on residential case manager labs Advance therapies as tolerated. Insurance denied [...] disc ussed with patient. at 1354 RPT #:[id number] END OF REPORT 2022-07-09 07:51:00-00:00 [facility] Hospitalist Discharge Summary REPORT#:[id number] REPORT STATUS: Signed DATE:07/09/22 TIME: 075 PATIENT: MESERET MOTTA UNIT #: [id number] ROOM/BED: [place] [address] : 56 AGE: 67 SEX: F ATTEND: Adonis Gaytan MD ADM AUTHOR: Adonis Gaytan MD * ALL edits or amendments must be made on the [employer]/computer document * General Information Discharge date: 07/07/22 Discharge diagnosis: CAD Hospital course: 67 YO female with PMHx of HTN, DM, CHF, ESRD on HD who initially presented at [facility] with SOB and fatigue. Sh regan was treated for NSTEMI and acute CHF exacerbation. She had C that showed severe multivessel CAD. She is transferred her for CABG nataly luation. Echo showed LVEF 50%. [facility] was consulted for possible CABG. Case presented at complex case co nferewie, Recommend attempt PCI. Cardiology was consulted. Patient had PCI of her circumflex and will need elective LAD PCI at a l ater date. LE arterial doppler - severe PAD Pt is s/p POOL TABLE OPERATOR a nd atherectomy with CSI followed by POOL TABLE OPERATOR with TAVR ita martínez on left anterior and posterior tibial artery. Patient also had LAND SURVEYING PARTY CHIEF of righ t anterior/posterior tibial artery- will [...] acute respiratory failure due to pulmononary edema. INSULATION POWER UNIT TENDER was consulted for dyf unctional uterine bleeding. [...] had no vaginal bleeding for 15 years...ask estimating manager to see and check pelvic ultrasound. 07/02 - usg shows fibroids and estimating manager wants outpt f /u for endometrial bx. Severe PAD/toe ulcer: Status post POOL TABLE OPERATOR and atherec cheri with CSI followed by POOL TABLE OPERATOR with stable balloon on left anterior and [...] WBC increasing on unasyn. consult ID. ran chavez vanc? 07/04- bone scan ordered for her toes. results p ending. 07/05 - bone scan negative for osteo End-stage renal disease on hemodialysis Patient is on a Sunday sched jaxon Manager Solution following Functional quadriplegia: Rehab consult as recommended [...] unas yn to VANC. pt c/o DUB. estimating manager to see and check pelvis ultrasound. 07/02- Possible panic attack yesterday...to CCU..transfer back to telemetry. d/w bedside nurse. 07/03 - miralex for constipation. 07/04- Bone scan ordered for the toes. d /w skilled nursing case manager and plan is for SNF at [place]. awaiting insurance approval. 07/05 - awaiting SNF [...] TAB Comments: #90 - SIG Obtained From Fir PANTOPRAZOLE DR (PROTONIX) 40 MG TAB.DR 40 MILLIGRAM ORAL TWICE DAILY. Comments: TAKE 1 TABLET BY MOUTH TWICE DAILY 1/2 HOUR BEF ORE BREAKFAST AND LAST; # 90 - SIG Obtained From [employer] MUPIROCIN (BACTROBAN 2%) 2 % OINTMENT 1 [...] soft, no distention Extremities: edema, moves all Neuro/CHAINSTITCH SEWING MACHINE OPERATOR: alert, oriented X 3, normal speech, n [...] attest that the foregoing medication list in [facility] medical record is true, accurate, and complete to the best of my knowled ge. Electronically Signed by Adonis Gaytan MD on 07/31 at 0757 RPT #:[id number] END OF REPORT 2022-07-07 13:53:00-00:00 [facility] Pulmonology Progress Note REPORT#:[id number] REPORT STATUS: Signed DATE:07/07/22 TIME: 1353 PATIENT: MESERET MOTTA UNIT #: [id number] ROOM/BED: [place] [address] : 56 AGE: 67 SEX: F ATTEND: Adonis Gaytan MD ADM AUTHOR: Ana Bobo * ALL edits or amendments must be made on the [employer]/computer document * Subjective Comments: On NC, feels [...] I O ending at 0700: 07/07 0700 12/29 1900 Intake Total Output Total 3500 Balance [...] L Albuterol/Ipratropium (DUONEB) 3 ML RTQ4H PRN MN N NEB Ticagrelor (BRILINTA) 90 MG Q12HR [...] Lidocaine HCl (LIDOCAINE HCL/PF) 0.5 ML ASDIR MN N I-DERMAL (CKD) Mannitol (MANNITOL 25% 12.5GM/50ML) 12.5 GM ASDI R PRN IV Sodium Chloride (SODIUM CHLORIDE 0.9%) 2,000 ML ASDIR PRN IV Sodium Chloride (SODIUM CHLORIDE) 5 ML ASDIR PRN IV Sodium Chloride (SODIUM CHLORIDE) 10 ML ASDIR MN N IV Sodium Chloride (SODIUM CHLORIDE 0.9%) [...] n, no guarding Extremities: edema, no clubbing Neuro/CHAINSTITCH SEWING MACHINE OPERATOR: alert, oriented X 3, no motor deficit [...] Home with home O2 at 1355 RPT #:[id number] END OF REPORT 2022-07-07 13:48:00-00:00 [facility] ([facility]) Infectious Dis. Progress Note REPORT#:[id number] REPORT STATUS: Signed DATE:07/07/22 TIME: 1348 PATIENT: MESERET MOTTA UNIT #: [id number] ROOM/BED: [place] [address] : 56 AGE: 67 SEX: F ATTEND: Adonis Gaytan MD ADM AUTHOR: Kasey Mendez MD * ALL edits or amendments must be made on the [employer]/computer document * Subjective HPI: 67 yr old [...] 1033 Temp 98.6 07/07 1033 Pulse 75 12/30 1033 Resp 16 07/07 1033 O2 Flow [...] PRN PRN 06/21 190 AC PO 07/21 Anti-Infective Agents Sig/Enedina Start time Last Medication [...] Sulfate 0.5 MG ASDIR PRN 06/27 1600 A C IV 07/27 1559 Midodrine 5 MG 0900,1300,1700 [...] Atorvastatin Calcium 40 MG 06/21 2100 AC PO 07/21 205 2109 Nitroglycerin 0.4 MG Q5M PRN PRN [...] 0828 Aspirin 81 MG C BK 06/22 0800 AC 07/07 PO 07/22 0759 0829 Acetaminophen [...] 10 ML ASDIR PRN 06/22 1530 AC 07/06 IV 07/22 1529 1100 Sodium Chloride 250 [...] BID 07/03 2100 AC 07/07 PO 08/02 2058 0828 Polyethylene Glycol 17 GM DAILY 07/03 1115 AC 1 09/04 PO 08/02 1114 1425 Magnesium Hydroxide 30 ML BID PRN PRN 07/02 134 5 AC 07/05 PO 08/01 1344 0038 Docusate Sodium 100 MG BID 06/30 0900 AC 07/07 PO 07/30 0859 0829 Pantoprazole 40 MG 0600,1800 06/22 1800 AC 06/10 0 PO 07/22 1759 0532 Ondansetron HCl 4 MG Q6H PRN PRN 06/21 1730 AC 07/05 IV 07/21 1729 0042 Hormones And Synthetic Substit Sig/Enedina Start time Last Medication Dose Route Stop Time Status Admin Levothyroxine Sodium 150 MCG DAILY 0600 06/23 0 600 AC 07/07 PO 07/23 0559 0532 Insulin Human Lispro 0 AC HS 06/21 2100 AC 06/10 0 SUBQ 07/21 2058 122 Glucagon 1 MG ASDIR PRN 06/21 1900 AC IM 07/21 1859 Vitamins Sig/Enedina Start time Last Medication Dose Route Stop Time Status Admin Calcitriol 0.5 MCG DAILY 06/23 09 AC 07/07 PO 07/23 0859 0828 Portions of this section alden luevano scribed by Mohini Orozco on 07/07/22 at 1348 Treatment Prophylaxis Treatment Prophylaxis Lines: peripheral CVC/PICC documentation: The data below has been imported from nursing do cumentation. Any exceptions have been noted below under Provider comments. CVC/PICC insertion date/time : Dialysis catheter double Subclavian Left Inserted 06/21/22 1702 Provider comments on imported nursing data: [] Portions of this section alden luevano scribed by Mohini Orozco on 07/07/22 at [...] on 07/07/22 at 1348 at 0813 RPT #:[id number] END OF REPORT 2022-07-07 12:29:00-00:00 [facility] ([facility]) Wound Care Progress Note REPORT#:[id number] REPORT STATUS: Signed DATE:07/07/22 TIME: 1229 PATIENT: MESERET MOTTA UNIT #: [id number] ROOM/BED: [place] [address] : 56 AGE: 67 SEX: F ATTEND: Adonis Gaytan MD ADM AUTHOR: Sybil Byers MD * ALL edits or amendments must be made on the [employer]/computer document * Subjective Chief complaint: Woundcare FU [...] L Albuterol/Ipratropium (DUONEB) 3 ML RTQ4H PRN MN N NEB Ticagrelor (BRILINTA) 90 MG Q12HR [...] Lidocaine HCl (LIDOCAINE HCL/PF) 0.5 ML ASDIR MN N I-DERMAL (CKD) Mannitol (MANNITOL 25% 12.5GM/50ML) 12.5 GM ASDI R PRN IV Sodium Chloride (SODIUM CHLORIDE 0.9%) 2,000 ML ASDIR PRN IV Sodium Chloride (SODIUM CHLORIDE) 5 ML ASDIR PRN IV Sodium Chloride (SODIUM CHLORIDE) 10 ML ASDIR MN N IV Sodium Chloride (SODIUM CHLORIDE 0.9%) [...] GM DAILY PRN PRN 06/30 1045 AC 12 8 PO 07/30 1044 0038 Docusate Sodium [...] Midodrine 5 MG 0900,1300,1700 06/23 0900 AC 06/10 0 PO 07/23 0859 1227 Levothyroxine Sodium 150 MCG DAILY 0600 06/23 06 00 AC 07/07 PO 07/23 0559 0532 Buspirone HCl 5 MG BID 06/22 2100 AC 07/07 PO 07/22 2058 0828 Metoprolol Tartrate 12.5 MG Q12HR 06/22 2100 AC 07/07 PO 07/22 205 0829 Pantoprazole 40 MG [...] 2100 06/21 2100 AC PO 07/21 205 210 Insulin Human Lispro 0 AC HS [...] Sybil Byers MD on at 2243 RPT #:[id number] END OF REPORT 2022-07-07 10:35:00-00:00 [facility] Hospitalist Progress Note REPORT#:[id number] REPORT STATUS: Signed DATE:07/07/22 TIME: 1035 PATIENT: MESERET MOTTA UNIT #: [id number] ROOM/BED: [place] [address] : 56 AGE: 67 SEX: F ATTEND: Adonis Gaytan MD ADM AUTHOR: Adonis Gaytan MD * ALL edits or amendments must be made on the [employer] document * Subjective Chief complaint: no cp. [...] soft, no distention Extremities: edema, moves all Neuro/CHAINSTITCH SEWING MACHINE OPERATOR: alert, oriented X 3, normal speech, n [...] 2100 AC 07/07 PO 07/22 205 0829 Pantoprazole 40 MG 0600,1800 06/22 1800 AC 06/10 0 PO 07/22 175 0532 Midodrine 10 MG [...] PRN 06/21 1900 AC PO 07/21 185 2027 Acetaminophen 650 MG Q4H PRN PRN 06/21 1730 AC 1 PO 07/21 172 0208 Heparin Sodium 5,000 UNIT ASDIR PRN 06/21 1730 A C 06/22 IV 07/21 172 1449 Nitroglycerin 0.4 MG Q5M PRN PRN 06/21 1730 AC SL 07/21 172 Ondansetron HCl 4 MG Q6H PRN PRN 06/21 1730 AC 07/05 IV 07/21 1729 0042 Laboratory Tests: 07/06 07/06 07/06 1955 1535 1232 Chemistry [...] had no vaginal bleeding for 15 years...ask estimating manager to see and check pelvic ultrasound. 07/02 - usg shows fibroids and estimating manager wants outpt f /u for endometrial bx. Severe PAD/toe ulcer: Status post POOL TABLE OPERATOR and atherec cheri with CSI followed by POOL TABLE OPERATOR with stable balloon on left anterior and [...] Patient is on a Sunday sched jaxon Manager Solution following Functional quadriplegia: Rehab consult as recommended by cardiology. Alex peace lives alone. 06/28 Elevated LFTs Secondary to [...] unas yn to VANC. pt c/o DUB. estimating manager to see and check pelvis ultrasound. 07/02- Possible panic attack yesterday...to CCU..transfer back to telemetry. d/w bedside nurse. 07/03 - miralex for constipation. 07/04- Bone scan ordered for the toes. d /w skilled nursing case manager and plan is for SNF at [place]. awaiting insurance approval. 07/05 - awaiting SNF approval from insurance. 07/06 - d/w case management. awaiting insurance approval for SNF 07/07 - insurance rejected SNF...dc home with h/ h. Quality: Gen Med Crit Care VTE Prophylaxis VTE prophylaxis initiated: yes Current Medications Current medication review: I attest that the foregoing medication list in t he medical record is true, accurate, and complete to the best of my knowled ge. Electronically Signed by Adonis Gaytan MD on 06/10 at 1036 RPT #:[id number] END OF REPORT 2022-07-07 08:32:00-00:00 [facility] Cardiology Progress Note REPORT#:[id number] REPORT STATUS: Signed DATE:07/07/22 TIME: 0832 PATIENT: MESERET MOTTA UNIT #: [id number] ROOM/BED: [place] [address] : 56 AGE: 67 SEX: F ATTEND: Adonis Gaytan MD ADM AUTHOR: Sabrina Tirado NP * ALL edits or amendments must be made on the [employer]/computer document * Subjective Chief complaint: stable, rehab [...] Midodrine 5 MG 0900,1300,1700 06/23 0900 AC 06/10 0 PO 07/23 0859 0829 Levothyroxine Sodium 150 MCG DAILY 0600 06/23 06 00 AC 07/07 PO 07/23 0559 0532 Buspirone HCl 5 MG BID 06/22 2100 AC 07/07 PO 07/22 2058 0828 Metoprolol Tartrate 12.5 MG Q12HR 06/22 2100 AC 07/07 PO 07/22 205 0829 Pantoprazole 40 MG [...] 40 MG 2100 06/21 2100 AC 1 PO 07/21 2059 2109 Insulin Human Lispro 0 AC HS [...] normal temperature, no edema Musculoskeletal: normal inspection Neuro/CHAINSTITCH SEWING MACHINE OPERATOR: alert, oriented X 3, normal speech Skin: scabs lower extremities Ulcer: Type/cause: diabetic, arterial Location: foot (bilateral toes) Psychiatry: normal affect, normal mood Diagnosis, Assessment Plan Consultants: cardiology, cardiovascular surgery, nephrology, wound care Free Text DxA P Notes Free Text DxA P Notes: 67 YO female with PMHx of HTN, DM, CHF, ESRD on HD who [facility] Center with SOB and fatigue. Sh regan was [...] ulcers/severe PAD 06/26/21: s/p peripheral angiogram and POOL TABLE OPERATOR to th e anterior tibial artery [employer] of right anterior/posterior tibial artery, n eed staged intervention on a later date 7. Debility PT/OT- SNF denied plans to dc home today, advised outpatient fu so further interventions can be arranged Electronically Signed by Sabrina Tirado DRYWALL MECHANIC on 1 at 1124 Electronically Signed by Herson Tang MD on at 1019 RPT #:[id number] END OF REPORT 2022-07-07 07:34:00-00:00 [facility] ([facility]) Nephrology Progress Note REPORT#:[id number] REPORT STATUS: Signed DATE:07/07/22 TIME: 733 PATIENT: MESERET MOTTA UNIT #: [id number] ROOM/BED: [place] [address] : 56 AGE: 67 SEX: F ATTEND: Adonis Gaytan MD ADM AUTHOR: Jennifer Shelton MD * ALL edits or amendments must be made on the [employer]/computer document * See Addendum Subjective Chief complaint: Transferred for CABG HPI: Patient seen and evaluated, discussed with care team, 67-year-old female with history of end-stage renal d isease on chronic hemodialysis Sunday, and Sunday, diabetes mellitus, peripheral arterial disease and hypertension who was transferred to [facility] for CABG. Patiregan nt initially presented to [facility] in [place] compl aining of shortness of breath. Underwent [...] L Albuterol/Ipratropium (DUONEB) 3 ML RTQ4H PRN MN N NEB Ticagrelor (BRILINTA) 90 MG Q12HR [...] PO Metoprolol Tartrate (LOPRESSOR) 12.5 MG Q12HR P O Pantoprazole (PROTONIX) 40 MG 0600,1800 PO Midodrine (PROAMATINE) 10 MG DIALYSIS-DOSE BEFOR E PO (CKD) Albumin Human (ALBUMINAR-25%) 12.5 GM ASDIR PRN IV Heparin Sodium (Porcine) (HEPARIN SODIUM) 3,000 UNIT ASDIR PRN DIALYSIS Lidocaine HCl (LIDOCAINE HCL/PF) 0.5 ML ASDIR MN N I-DERMAL (CKD) Mannitol (MANNITOL 25% 12.5GM/50ML) 12.5 GM ASDI R PRN IV Sodium Chloride (SODIUM CHLORIDE 0.9%) 2,000 ML ASDIR PRN IV Sodium Chloride (SODIUM CHLORIDE) 5 ML ASDIR PRN IV Sodium Chloride (SODIUM CHLORIDE) 10 ML ASDIR MN N IV Sodium Chloride (SODIUM CHLORIDE 0.9%) [...] Musculoskeletal: no CVA tenderness, no tendernes s Neuro/CHAINSTITCH SEWING MACHINE OPERATOR: alert, normal speech Skin: dry, intact Ulcer: Type/cause: diabetic, arterial Location: foot (bilateral toes) Results Findings/Data: Laboratory Tests 07/06 1535 1232 Chemistry POC Glucose (70 - [...] Jennifer Shelton MD on at 0850 RPT #:[id number] END OF REPORT 2022-07-07 06:23:00-00:00 [facility] REPORT#:[id number] REPORT STATUS: Signed DATE:07/07/22 TIME: 06 PATIENT: MESERET MOTTA UNIT #: [id number] ROOM/BED: [place] [address] : 56 AGE: 67 SEX: F ATTEND: Adonis Gaytan MD ADM AUTHOR: Shelton Vega * ALL edits or amendments must be made on the [employer]/computer document * Subjective Chief complaint: rehab follow-up feeling good denies dizziness or sob NAD Denies TABARES/N/V/D/CP 14 systems reviewed and neg. except that above. Objective General VS: Vital Signs: Date Time Temp Pulse Resp B/P B/P Pulse O2 O2 F low FiO2 Mean Ox Delivery Rate 07/07 413 98.4 80 18 125/67 86.3 99 12/30 0049 98.2 85 17 115/66 82.7 99 [...] L Albuterol/Ipratropium (DUONEB) 3 ML RTQ4H PRN MN N NEB Ticagrelor (BRILINTA) 90 MG Q12HR [...] PO Metoprolol Tartrate (LOPRESSOR) 12.5 MG Q12HR P O Pantoprazole (PROTONIX) 40 MG 0600,1800 PO Midodrine (PROAMATINE) 10 MG DIALYSIS-DOSE BEFOR E PO (CKD) Albumin Human (ALBUMINAR-25%) 12.5 GM ASDIR PRN IV Heparin Sodium (Porcine) (HEPARIN SODIUM) 3,000 UNIT ASDIR PRN DIALYSIS Lidocaine HCl (LIDOCAINE HCL/PF) 0.5 ML ASDIR MN N I-DERMAL (CKD) Mannitol (MANNITOL 25% 12.5GM/50ML) 12.5 GM ASDI R PRN IV Sodium Chloride (SODIUM CHLORIDE 0.9%) 2,000 ML ASDIR PRN IV Sodium Chloride (SODIUM CHLORIDE) 5 ML ASDIR PRN IV Sodium Chloride (SODIUM CHLORIDE) 10 ML ASDIR MN N IV Sodium Chloride (SODIUM CHLORIDE 0.9%) [...] Deviations: STEPPAGE GAIT L LE SLOW [facility] Mobility: Yes Advanced Progression: No Effects of Treatment: Balance Improved Function Improved Gait quality improved Post TX Precautions: IN BED CALL BUTTON WITHIN REACH O2 on Review Plan of Care: Yes PT charges: Gait Training [id number] Gait Cmt: PATIENT POST HD. AGREEABLE TO GAIT TR NG TO TOLERANCE DUE TO C/O FATIGUE POST HD. PATIENT PERFORMED 50 FT OF GAIT W/ RW SPV ON 4 LPM OF . If this is the patient's last treatment, this e ntry serves as the discharge summary: Y Start Time: 1400 Stop Time: 1410 Treatment Time : ( minutes) 0:10 Completed by: Monroe Kaufman . BED MOBILITY: Yes Rolling Right/Left: Modified [place] Supine to Sit: Modified [place] Sit to Supine: Modified [place] Scooting in bed: Modified [place] TRANSFERS: Yes Bed to/from chair: Modified [place] Sit to/from stand: Modified [place] Comments: USE RW FOR STABILITY AND CONTINOUS [...] BUE +3/5 BLE HF -3/5 KE +3/5 Neuro/CHAINSTITCH SEWING MACHINE OPERATOR: sensory deficit ( decrease BLE), alert, oriented X 3, CNII-XII intact, normal speech Genitourinary: Results Findings/Data: Laboratory Tests 07/06 07/06 07/06 07/06 07/06 1955 1535 1232 0540 0540 Chemistry Sodium (134 [...] (Auto) (14.0 - 32.0 %) 7.7 L Obion % (Auto) (4.8 - 9.0 %) 9.5 H Eos % (Auto) (0.3 - 3.7 %) 2.7 Baso % (Auto) (0.0 - 2.0 %) 0.1 Neut # (Auto) (2.0 - 7.6 x10 3/uL) 6.08 Lymph # (Auto) (1.0 - 3.8 x10 3/uL) 0.59 L Obion # (Auto) (0.1 - 0.8 x10 3/uL) [...] -End-stage renal disease on hemodialysis -Severe PVD-(s/p POOL TABLE OPERATOR and ath erectomy with CSI followed by POOL TABLE OPERATOR with TAVR balloon on left anterior and [...] decubitus precautions Monitor labs Wound care on residential case manager labs Advance therapies as tolerated. Pt. no longer wants IRF. [facility] in [place]. Discussed with CM. Order for SNF placed. Total time was 33 minutes > 50% with patient per forming physical examination, discussing plan of care, goals, therapies, progr ess, medications, labs. All questions answered Consultants: cardiology, cardiovascular surgery, nephrology, wound care Rehab attestation: . Electronically Signed by Shelton Vega on 1 at 1934 RPT #:[id number] END OF REPORT 2022-07-06 21:27:00-00:00 [facility] ([facility]) Wound Care Progress Note REPORT#:[id number] REPORT STATUS: Signed DATE:07/06/22 TIME: 2126 PATIENT: MESERET MOTTA UNIT #: [id number] ROOM/BED: [place] [address] : 56 AGE: 67 SEX: F ATTEND: Adonis Gaytan MD ADM AUTHOR: Sybil Byers MD * ALL edits or amendments must be made on the [employer]/computer document * Subjective Chief complaint: Woundcare FU [...] L Albuterol/Ipratropium (DUONEB) 3 ML RTQ4H PRN MN N NEB Ticagrelor (BRILINTA) 90 MG Q12HR [...] Lidocaine HCl (LIDOCAINE HCL/PF) 0.5 ML ASDIR MN N I-DERMAL (CKD) Mannitol (MANNITOL 25% 12.5GM/50ML) 12.5 GM ASDI R PRN IV Sodium Chloride (SODIUM CHLORIDE 0.9%) 2,000 ML ASDIR PRN IV Sodium Chloride (SODIUM CHLORIDE) 5 ML ASDIR PRN IV Sodium Chloride (SODIUM CHLORIDE) 10 ML ASDIR MN N IV Sodium Chloride (SODIUM CHLORIDE 0.9%) [...] (Auto) (14.0 - 32.0 %) 7.7 L Obion % (Auto) (4.8 - 9.0 %) 9.5 H Eos % (Auto) (0.3 - 3.7 %) 2.7 Baso % (Auto) (0.0 - 2.0 %) 0.1 Neut # (Auto) (2.0 - 7.6 x10 3/uL) 6.08 Lymph # (Auto) (1.0 - 3.8 x10 3/uL) 0.59 L Obion # (Auto) (0.1 - 0.8 x10 3/uL) [...] Sybil Byers MD on at 2143 RPT #:[id number] END OF REPORT 2022-07-06 14:08:00-00:00 [facility] Hospitalist Progress Note REPORT#:[id number] REPORT STATUS: Signed DATE:07/06/22 TIME: 1408 PATIENT: MESERET MOTTA UNIT #: [id number] ROOM/BED: [place] [address] : 56 AGE: 67 SEX: F ATTEND: Adonis Gaytan MD ADM AUTHOR: Adonis Gaytan MD * ALL edits or amendments must be made on the [employer] document * Subjective Chief complaint: c/o back [...] soft, no distention Extremities: edema, moves all Neuro/CHAINSTITCH SEWING MACHINE OPERATOR: alert, oriented X 3, normal speech, n [...] 1115 AC 07/05 PO 07/28 1114 2025 Atropine Sulfate 0.5 MG ASDIR PRN 06/27 1600 AC IV 07/27 1559 Sodium Chloride 500 ML ASDIR PRN 06/27 1600 AC IV 07/27 1559 Sevelamer Carbonate 3,200 MG C MEALS 06/26 0800 AC 07/05 PO 07/26 0759 1751 Calcitriol 0.5 MCG DAILY 06/23 0900 AC 07/05 PO 07/23 0859 0816 Midodrine 5 MG 0900,1300,1700 06/23 0900 AC PO 07/23 0859 0800 Levothyroxine Sodium 150 MCG DAILY 0600 06/23 06 00 AC 07/06 PO 07/23 0559 0416 Buspirone HCl 5 MG BID 06/22 2100 AC 07/05 PO 07/22 Metoprolol Tartrate 12.5 MG Q12HR 06/22 2100 AC 07/05 PO 07/22 Pantoprazole 40 MG 0600,1800 06/22 1800 AC 07/06 PO 07/22 175 0416 Midodrine 10 MG DIALYSIS-DOSE 06/22 1545 CKD [...] 06/21 2100 AC 07/05 SUBQ 07/21 2058 1223 Dextrose/Water 125 ML ASDIR PRN 06/21 [...] 09/05 IV 07/21 1729 0042 Laboratory Tests: 07/06 07/06 07/06 07/06 07/05 1232 0540 0540 0528 1842 Chemistry Sodium (134 - 147 mEq/L) 140 [...] (Auto) (14.0 - 32.0 %) 7.7 L [place] % (Auto) (4.8 - 9.0 %) 9.5 H Eos % (Auto) (0.3 - 3.7 %) 2.7 Baso % (Auto) (0.0 - 2.0 %) 0.1 Neut # (Auto) (2.0 - 7.6 x10 3/uL) 6.08 Lymph # (Auto) (1.0 - 3.8 x10 3/uL) 0.59 L Obion # (Auto) (0.1 - 0.8 x10 3/uL) [...] had no vaginal bleeding for 15 years...ask estimating manager to see and check pelvic ultrasound. 07/02 - usg shows fibroids and estimating manager wants outpt f /u for endometrial bx. Severe PAD/toe ulcer: Status post POOL TABLE OPERATOR and atherec cheri with CSI followed by POOL TABLE OPERATOR with stable balloon on left anterior and [...] Patient is on a Sunday sched jaxon Manager Solution following Functional quadriplegia: Rehab consult as recommended [...] unas yn to VANC. pt c/o DUB. estimating manager to see and check pelvis ultrasound. 07/02- Possible panic attack yesterday...to CCU..transfer back to telemetry. d/w bedside nurse. 07/03 - miralex for constipation. 07/04- Bone scan ordered for the toes. d /w skilled nursing case manager and plan is for SNF at [place]. awaiting insurance approval. 07/05 - awaiting SNF approval from insurance. 07/06 - d/w case management. awaiting insurance approval for SNF Quality: Gen Med Crit Care VTE Prophylaxis VTE prophylaxis initiated: yes Current Medications Current medication review: I attest that the foregoing medication list in [facility] medical record is true, accurate, and complete to the best of my knowled ge. Electronically Signed by Adonis Gaytan MD on 06/09 03/30 at 1409 RPT #:[id number] END OF REPORT 2022-07-06 11:13:00-00:00 [facility] ([facility]) Infectious Dis. Progress Note REPORT#:[id number] REPORT STATUS: Signed DATE:07/06/22 TIME: 1113 PATIENT: MESERET MOTTA UNIT #: [id number] ROOM/BED: 4404-1 : 56 AGE: 67 SEX: F ATTEND: Adonis Gaytan MD ADM AUTHOR: Kasey Mendez MD * ALL edits or amendments must be made on the [employer]/computer document * Subjective HPI: 67 yr old [...] (Auto) (14.0 - 32.0 %) 7.7 L Obion % (Auto) (4.8 - 9.0 %) 9.5 H Eos % (Auto) (0.3 - 3.7 %) 2.7 Baso % (Auto) (0.0 - 2.0 %) 0.1 Neut # (Auto) (2.0 - 7.6 x10 3/uL) 6.08 Lymph # (Auto) (1.0 - 3.8 x10 3/uL) 0.59 L Obion # (Auto) (0.1 - 0.8 x10 3/uL) [...] 1115 AC 07/05 PO 07/28 111 2025 Heparin Sodium 3,000 UNIT ASDIR PRN [...] Calcium 40 MG 2100 06/21 2100 AC 09/05 PO 07/21 Nitroglycerin 0.4 MG Q5M PRN PRN 06/21 1730 AC SL 07/21 1729 Central Nervous System Agents Sig/Enedina Start time Last Medication Dose Route Stop Time Status Admin Buspirone HCl 5 MG BID 06/22 2100 AC 07/05 PO 07/22 Aspirin 81 MG C BK [...] 0800 AC 07/05 PO 07/26 0759 1751 Mannitol [...] MCG DAILY 0600 06/23 0 600 AC 07/06 PO 07/23 0559 0416 Insulin Human Lispro 0 AC HS 06/21 2100 AC 06/09 8 SUBQ 07/21 205 1223 Glucagon 1 MG ASDIR PRN 06/21 1900 AC IM 07/21 1859 Skin And Mucous Membrane Agent Sig/Enedina Start time Last Medication Dose Route Stop Time Status Admin Mupirocin 1 APPLIC BID 07/01 2100 DC 07/05 NASAL 07/06 Vitamins Sig/Enedina Start time Last Medication Dose [...] the left foot plain radiographs. Impression By: DanieABTiffany Gracia Portions of this section wer e scribed [...] wound care Portions of this section alden e scribed by Mohini Orozco on 07/06/22 at 1113 at 0911 RPT #:[id number] END OF REPORT 2022-07-06 10:45:00-00:00 [facility] Pulmonology Progress Note REPORT#:[id number] REPORT STATUS: Signed DATE:07/06/22 TIME: 1045 PATIENT: MESERET MOTTA UNIT #: [id number] ROOM/BED: [place] [address] : 56 AGE: 67 SEX: F ATTEND: Adonis Gaytan MD ADM AUTHOR: Ana Bobo * ALL edits or amendments must be made on the [employer]/computer document * Subjective Comments: On NC, comfortable, no new complaints ROS All systems rev neg: except as marked Objective General VS/I O: Last Documented: Result Date Time Pulse Ox 97 07/06 0910 B/P 157/79 07/06 0910 O2 Delivery Nasal cannula 07/06 09 O2 Flow Rate 4 07/06 09 Temp 36.6 07/06 0910 Pulse 82 07/06 [...] L Albuterol/Ipratropium (DUONEB) 3 ML RTQ4H PRN MN N NEB Ticagrelor (BRILINTA) 90 MG Q12HR [...] Lidocaine HCl (LIDOCAINE HCL/PF) 0.5 ML ASDIR MN N I-DERMAL (CKD) Mannitol (MANNITOL 25% 12.5GM/50ML) 12.5 GM ASDI R PRN IV Sodium Chloride (SODIUM CHLORIDE 0.9%) 2,000 ML ASDIR PRN IV Sodium Chloride (SODIUM CHLORIDE) 5 ML ASDIR PRN IV Sodium Chloride (SODIUM CHLORIDE) 10 ML ASDIR MN N IV Sodium Chloride (SODIUM CHLORIDE 0.9%) [...] n, no guarding Extremities: edema, no clubbing Neuro/CHAINSTITCH SEWING MACHINE OPERATOR: alert, oriented X 3, no motor deficit [...] (Auto) (14.0 - 32.0 %) 7.7 L [place] % (Auto) (4.8 - 9.0 %) 9.5 H Eos % (Auto) (0.3 - 3.7 %) 2.7 Baso % (Auto) (0.0 - 2.0 %) 0.1 Neut # (Auto) (2.0 - 7.6 x10 3/uL) 6.08 Lymph # (Auto) (1.0 - 3.8 x10 3/uL) 0.59 L Obion # (Auto) (0.1 - 0.8 x10 3/uL) [...] resolved - D/C Planning at 1432 RPT #:[id number] END OF REPORT 2022-07-06 08:33:00-00:00 [facility] ([facility]) Pharmacy Prog.Note-Vancomycin REPORT#:[id number] REPORT STATUS: Signed DATE:07/06/22 TIME: 832 PATIENT: MESERET MOTTA UNIT #: [id number] ROOM/BED: [place] [address] : 56 AGE: 67 SEX: F ATTEND: Adonis Gaytan MD ADM AUTHOR: Nikolai Garsia RP * ALL edits or amendments must be made on the [employer]/computer document * Vancomycin Vancomycin Medication Therapy Goal: Pre-HD vanco goal 15-20mcg/mL Indication for treatment: SSTI Current therapy: Post-HD vancomycin 1000 mg IV once VS and I/O: Vital Signs Date Temp Pulse Resp B/P B/P Mean Pulse Ox FiO2 07/03-07/06 97.3-98.6 74-92 15-21 94-162/54-81 67.1-108.2 90-100 72 hours ending at 0700 07/06 0700 07/05 1900 07/05 0700 07/04 1900 07/03 0700 1900 Intake 200 840 200 310.00 Total [...] hypertension, diabetes, hypothyroidism, who was transferred from [facility] on 08/23 for evaluation for CABG. Patient [...] * [facility] on 07[facility], UOP 2 [...] y per ID note. at 0841 RPT #:[id number] END OF REPORT 2022-07-06 08:29:00-00:00 [facility] ([facility] Cardiology Progress Note REPORT#:[id number] REPORT STATUS: Signed DATE:07/06/22 TIME: 828 PATIENT: MESERET MOTTA UNIT #: [id number] ROOM/BED: [place] [address] : 56 AGE: 67 SEX: F ATTEND: Adonis Gaytan MD ADM AUTHOR: Sabrina Tirado NP * ALL edits or amendments must be made on the [employer]/computer document * Subjective Chief complaint: stable, waiting on rehab Objective General VS/I O: Laboratory Tests 07/06/22 0540: [Embedded Image Not Available] Current Medications Sig/Enedina Start time Last Medication Dose Route Stop Time Status Admin Vancomycin HCl 750 MG ONCE ONE 07/06 2000 AC Sodium Chloride 250 ML IV 12/29 2059 Calcium Carbonate 1,000 MG Q6H PRN [...] 1115 AC 07/05 PO 07/28 1114 2025 Atropine Sulfate 0.5 MG ASDIR PRN 06/27 1600 AC IV 07/27 1559 Sodium Chloride 500 ML ASDIR PRN 06/27 1600 AC IV 07/27 1559 Sevelamer Carbonate 3,200 MG C MEALS 06/26 0800 AC 07/05 PO 07/26 0759 1751 Calcitriol 0.5 MCG DAILY 06/23 09 AC 07/05 PO 07/23 0859 0816 Midodrine [...] 0600,1800 06/22 1800 AC 07/06 PO 07/22 1759 0416 Midodrine 10 MG DIALYSIS-DOSE 06/22 1545 CKD [...] 10 ML ASDIR PRN 06/22 1530 AC 09/04 IV 07/22 1529 0806 Sodium Chloride 250 ML ASDIR PRN 06/22 1530 AC IV 07/22 1529 Aspirin 81 MG C BK 06/22 0800 AC 07/05 PO 07/22 0759 0817 Atorvastatin Calcium 40 MG 2100 06/21 2100 AC PO 07/21 Insulin Human Lispro 0 AC HS 06/21 2100 AC 07/05 SUBQ 07/21 2058 1223 Dextrose/Water 125 ML ASDIR PRN 06/21 1900 CKD IV 07/21 1859 Dextrose/Water 250 ML ASDIR PRN 06/21 1900 CKD IV 07/21 1859 Glucagon 1 MG ASDIR PRN 06/21 1900 AC IM 07/21 1859 Melatonin 3 MG BEDTIME PRN PRN 06/21 1900 AC PO 07/21 185 202 Acetaminophen 650 [...] normal temperature, no edema Musculoskeletal: normal inspection Neuro/CHAINSTITCH SEWING MACHINE OPERATOR: alert, oriented X 3, normal speech Skin: scabs lower extremities Ulcer: Type/cause: diabetic, arterial Location: foot (bilateral toes) Psychiatry: normal affect, normal mood Diagnosis, Assessment Plan Consultants: cardiology, cardiovascular surgery, nephrology, wound care Free Text DxA P Notes Free Text DxA P Notes: 67 YO female with PMHx of HTN, DM, CHF, ESRD on HD who initially presented at [facility] with SOB and fatigue. Sh regan was [...] ulcers/severe PAD 06/26/21: s/p peripheral angiogram and POOL TABLE OPERATOR to th e anterior tibial artery [employer] CHIEF of right anterior/posterior tibial artery, n eed staged intervention on a later date 7. Debility PT/OT- SNF pending Ok to DC to rehab from cardiology standpoint. Electronically Signed by Sabrina Tirado NP on 1 at 1027 Electronically Signed by Herson Tang MD on at 1019 RPT #:[id number] END OF REPORT 2022-07-06 07:06:00-00:00 [facility] Nephrology Progress Note REPORT#:[id number] REPORT STATUS: Signed DATE:07/06/22 TIME: 705 PATIENT: MESERET MOTTA UNIT #: [id number] ROOM/BED: [address] : 56 AGE: 67 SEX: F ATTEND: Adonis Gaytan MD ADM AUTHOR: Jennifer Shelton MD * ALL edits or amendments must be made on the [employer] document * Subjective Chief complaint: Transferred for CABG HPI: Patient seen and evaluated, discussed with care team, 67-year-old female with history of end-stage renal d isease on chronic hemodialysis Sunday, and Sunday, diabetes mellitus, peripheral arterial disease and hypertension who was transferred to [facility] for CABG. Terrence quevedo initially presented to [facility] in [place] compl aining of shortness of breath. Underwent [...] PRN PO Epoetin Vanesa-epbx (RETACRIT) 6,000 UNIT TuThSa@ 2100 SUBQ Mupirocin (BACTROBAN 2% 22 GM OINTMENT) 1 APPLIC BID NASAL Miscellaneous Information (VANCOMYCIN PHARMACY T O DOSE) 1 EACH ASDIR IV (CKD) Lactulose (LACTULOSE) 20 GM DAILY PRN PRN PO Docusate Sodium (COLACE) 100 MG BID PO Sodium Chloride (OCEAN) 1 SPRAY Q2H PRN PRN NASA L Albuterol/Ipratropium (DUONEB) 3 ML RTQ4H PRN MN N NEB Ticagrelor (BRILINTA) 90 MG Q12HR [...] Lidocaine HCl (LIDOCAINE HCL/PF) 0.5 ML ASDIR MN N I-DERMAL (CKD) Mannitol (MANNITOL 25% 12.5GM/50ML) 12.5 GM ASDI R PRN IV Sodium Chloride (SODIUM CHLORIDE 0.9%) 2,000 ML ASDIR PRN IV Sodium Chloride (SODIUM CHLORIDE) 5 ML ASDIR PRN IV Sodium Chloride (SODIUM CHLORIDE) 10 ML ASDIR MN N IV Sodium Chloride (SODIUM CHLORIDE 0.9%) [...] Musculoskeletal: no CVA tenderness, no tendernes s Neuro/CHAINSTITCH SEWING MACHINE OPERATOR: alert, normal speech Skin: dry, intact Ulcer: [...] (Auto) (14.0 - 32.0 %) 9.6 L Obion % (Auto) (4.8 - 9.0 %) 9.8 H Eos % (Auto) (0.3 - 3.7 %) 4.2 H Baso % (Auto) (0.0 - 2.0 %) 0.1 Neut # (Auto) (2.0 - 7.6 x10 3/uL) 5.91 Lymph # (Auto) (1.0 - 3.8 x10 3/uL) 0.75 L Obion # (Auto) (0.1 - 0.8 x10 3/uL) [...] by Jennifer Shelton MD on at 0905 [facility] #:[id number] END OF REPORT 2022-07-05 13:33:00-00:00 [facility] Pulmonology Progress Note REPORT#:[id number] REPORT STATUS: Signed DATE:07/05/22 TIME: 1333 PATIENT: MESERET MOTTA UNIT #: [id number] ROOM/BED: [place] [address] : 56 AGE: 67 SEX: F ATTEND: Adonis Gaytan MD ADM AUTHOR: Ana oBbo * ALL edits or amendments must be made on the [employer]/computer document * Subjective Comments: On NC, feels [...] L Albuterol/Ipratropium (DUONEB) 3 ML RTQ4H PRN MN N NEB Ticagrelor (BRILINTA) 90 MG Q12HR [...] Lidocaine HCl (LIDOCAINE HCL/PF) 0.5 ML ASDIR MN N I-DERMAL (CKD) Mannitol (MANNITOL 25% 12.5GM/50ML) 12.5 GM ASDI R PRN IV Sodium Chloride (SODIUM CHLORIDE 0.9%) 2,000 ML ASDIR PRN IV Sodium Chloride (SODIUM CHLORIDE) 5 ML ASDIR PRN IV Sodium Chloride (SODIUM CHLORIDE) 10 ML ASDIR MN N IV Sodium Chloride (SODIUM CHLORIDE 0.9%) [...] n, no guarding Extremities: edema, no clubbing Neuro/CHAINSTITCH SEWING MACHINE OPERATOR: alert, oriented X 3, no motor deficit s Skin: dry, normal color Ulcer: Type/cause: diabetic, arterial Location: foot (bilateral toes) Psychiatry: normal affect, no hallucinations Results Findings/Data: Laboratory Tests 07/05 07/05 07/04 07/04 1142 0549 1939 1634 Chemistry POC Glucose (70 - 110 [...] resolved - D/C Planning at 1334 RPT #:[id number] END OF REPORT 2022-07-05 11:49:00-00:00 [facility] ([facility]) Wound Care Progress Note REPORT#:[id number] REPORT STATUS: Signed DATE:07/05/22 TIME: 1149 PATIENT: MESERET MOTTA UNIT #: [id number] ROOM/BED: [place] [address] : 56 AGE: 67 SEX: F ATTEND: Adonis Gaytan MD ADM AUTHOR: Sybil Byers MD * ALL edits or amendments must be made on the [employer]/computer document * Subjective Chief complaint: Woundcare FU [...] L Albuterol/Ipratropium (DUONEB) 3 ML RTQ4H PRN MN N NEB Ticagrelor (BRILINTA) 90 MG Q12HR [...] Lidocaine HCl (LIDOCAINE HCL/PF) 0.5 ML ASDIR MN N I-DERMAL (CKD) Mannitol (MANNITOL 25% 12.5GM/50ML) 12.5 GM ASDI R PRN IV Sodium Chloride (SODIUM CHLORIDE 0.9%) 2,000 ML ASDIR PRN IV Sodium Chloride (SODIUM CHLORIDE) 5 ML ASDIR PRN IV Sodium Chloride (SODIUM CHLORIDE) 10 ML ASDIR MN N IV Sodium Chloride (SODIUM CHLORIDE 0.9%) [...] (bilateral toes) Results Findings/Data: Laboratory Tests: 07/05 1634 1204 Chemistry POC Glucose (70 - 110 MG/DL) 153 H 165 H 188 H 132 H Laboratory Tests: 07/05 1634 1204 Chemistry POC Glucose (70 - [...] Sybil Byers MD on at 2117 RPT #:[id number] END OF REPORT 2022-07-05 11:43:00-00:00 [facility] ([facility] Infectious Dis. Progress Note REPORT#:[id number] REPORT STATUS: Signed DATE:07/05/22 TIME: 1143 PATIENT: MESERET MOTTA UNIT #: [id number] ROOM/BED: 4404-1 : 56 AGE: 67 SEX: F ATTEND: Adonis Gaytan MD ADM AUTHOR: Kasey Mendez MD * ALL edits or amendments must be made on the [employer] document * Subjective HPI: 67 yr old [...] Resp B/P B/P Mean Pulse Ox FiO2 07/04-07/05 97.5-98.2 74-87 15-18 112-128/66-75 83.5-92.7 98-100 Last Documented: Result Date Time Pulse Ox 98 07/05 07 B/P 128/75 07/05 0714 B/P Mean 92.7 07/05 0714 O2 Delivery Nasal cannula 07/05 714 Temp 97.5 07/05 714 Pulse 84 07/05 07 Resp 15 07/05 07 O2 Flow Rate 4 07/04 2100 FiO2 [...] 06/21 1900 AC PO 07/21 1859 2008 Anti-Infective Agents Sig/Enedina Start time Last Medication [...] Q12HR 06/22 2100 AC 07/05 PO 07/22 205 0817 Lidocaine HCl 0.5 ML ASDIR PRN [...] 2100 AC 07/05 PO 07/22 2058 0817 Aspirin 81 MG C BK 06/22 08 AC 07/05 PO 07/22 075 0817 Acetaminophen 650 MG Q4H PRN PRN 06/21 1730 AC 07/04 PO 07/21 172 2135 Electrolytic, Caloric, And Bailey Sig/Enedina Start [...] 0900 AC 07/05 PO 07/23 0859 0816 Recent Impressions: NUCLEAR MEDICINE - NM BONE 3 PHASE 07/04 07 Report Impression - Status: SIGNED Entered: 07/04/2022 1850 IMPRESSION: 1. No evidence of cellulitis or osteomyelitis. 2. Active osseous abnormality in the inferior an d posterior calcaneus bilaterally likely representing degene rative change as noted on the left foot plain radiographs. Impression By: [email or web address] - Tiffany Caban. Portions of this section wer e scribed [...] on 07/05/22 at 1143 at 0843 RPT #:[id number] END OF REPORT 2022-07-05 11:41:00-00:00 [facility] Hospitalist Progress Note REPORT#:[id number] REPORT STATUS: Signed DATE:07/05/22 TIME: 1141 PATIENT: MESERET MOTTA UNIT #: [id number] ROOM/BED: [place] [address] : 56 AGE: 67 SEX: F ATTEND: Adonis Gaytan MD ADM AUTHOR: Adonis Gaytan MD * ALL edits or amendments must be made on the [employer]/computer document * Subjective Chief complaint: very pleasant. [...] soft, no distention Extremities: edema, moves all Neuro/CHAINSTITCH SEWING MACHINE OPERATOR: alert, oriented X 3, normal speech, n o motor deficits Ulcer: Type/cause: diabetic, arterial Location: foot (bilateral toes) Psychiatry: normal affect Results Radiology data: Laboratory Tests 07/04/22 0540: [Embedded Image Not Available] Current Medications Sig/Enedina Start time Last Medication Dose Route Stop Time Status Admin Calcium Carbonate 1,000 MG Q6H PRN PRN 07/04 16 45 AC 07/04 PO 08/03 1644 1708 Vancomycin [...] 2100 06/21 2100 AC PO 07/21 205 2131 Insulin Human Lispro 0 AC HS 06/21 2100 AC 07/05 SUBQ 07/21 205 0816 Dextrose/Water 125 ML ASDIR PRN 06/21 1900 CKD IV 07/21 185 Dextrose/Water 250 ML ASDIR PRN 06/21 1900 CKD IV 07/21 185 Glucagon 1 MG ASDIR PRN 06/21 1900 AC IM 07/21 185 Melatonin 3 MG BEDTIME PRN PRN 06/21 190 AC PO 07/21 1852007 Acetaminophen 650 MG Q4H PRN PRN 06/21 1730 AC 07/04 PO 07/21 172 213 Heparin Sodium 5,000 UNIT ASDIR PRN 06/21 1730 AC 06/22 IV 07/21 1729 1449 Nitroglycerin 0.4 [...] had no vaginal bleeding for 15 years...ask estimating manager to see and check pelvic ultrasound. 07/02 - usg shows fibroids and estimating manager wants outpt f /u for endometrial bx. Severe PAD/toe ulcer: Status post POOL TABLE OPERATOR and atherec cheri with CSI followed by POOL TABLE OPERATOR with stable balloon on left anterior and [...] Patient is on a Sunday sched jaxon Manager Solution following Functional quadriplegia: Rehab consult as recommended by cardiology. Rosalia iesae lives alone. 06/28 Elevated LFTs Secondary to [...] unas yn to VANC. pt c/o DUB. estimating manager to see and check pelvis ultrasound. 07/02- Possible panic attack yesterday...to CCU..transfer back to telemetry. d/w bedside nurse. 07/03 - miralex for constipation. 07/04- Bone scan ordered for the toes. d /w skilled nursing case manager and plan is for SNF at [place]. awaiting insurance approval. 07/05 - awaiting SNF approval from insurance. Quality: Gen Med Crit Care VTE Prophylaxis VTE prophylaxis initiated: yes Current Medications Current medication review: I attest that the foregoing medication list in t he medical record is true, accurate, and complete to the best of my knowled ge. Electronically Signed by Adonis Gaytan MD on 06/09 02/27 at 1143 RPT #:[id number] END OF REPORT 2022-07-05 11:25:00-00:00 [facility] Cardiology Progress Note REPORT#:[id number] REPORT STATUS: Signed DATE:07/05/22 TIME: 1125 PATIENT: MESERET MOTTA UNIT #: [id number] ROOM/BED: [place] [address] : 56 AGE: 67 SEX: F ATTEND: Adonis Gaytan MD ADM AUTHOR: Sabrina Tirado NP * ALL edits or amendments must be made on the [employer]/computer document * Subjective Chief complaint: stable, waiting [...] 0859 0816 Midodrine 5 MG 0900,1300,1700 06/23 0900 AC 06/09 8 PO 07/23 0859 0818 Levothyroxine Sodium 150 MCG DAILY 0600 06/23 06 00 AC 07/05 PO 07/23 0559 0557 Buspirone HCl 5 MG BID 06/22 2100 AC 07/05 PO 07/22 2058 0817 Metoprolol Tartrate 12.5 MG Q12HR 06/22 2100 AC 07/05 PO 07/22 205 0817 Pantoprazole 40 MG 0600,1800 06/22 1800 [...] 2100 06/21 2100 AC PO 07/21 205 2131 Insulin Human Lispro 0 AC HS 06/21 2100 AC 07/05 SUBQ 07/21 205 0816 Dextrose/Water 125 ML ASDIR PRN 06/21 1900 CKD IV 07/21 1859 Dextrose/Water 250 ML ASDIR PRN 06/21 1900 CKD IV 07/21 1859 Glucagon 1 MG ASDIR PRN 06/21 1900 AC IM 07/21 1859 Melatonin 3 MG BEDTIME PRN PRN 06/21 1900 AC PO 07/21 1852007 Acetaminophen 650 MG Q4H PRN PRN 06/21 1730 AC 1 09/04 PO 07/21 172 213 Heparin Sodium 5,000 UNIT ASDIR PRN 06/21 1730 A C 06/22 IV 07/21 1729 1449 Nitroglycerin 0.4 MG Q5M PRN PRN 06/21 1730 AC SL 07/21 1729 Ondansetron HCl 4 MG Q6H PRN PRN 06/21 1730 AC 07/05 IV 07/21 1729 0042 24 hour I [...] normal temperature, no edema Musculoskeletal: normal inspection Neuro/CHAINSTITCH SEWING MACHINE OPERATOR: alert, oriented X 3, normal speech Skin: scabs lower extremities Ulcer: Type/cause: diabetic, arterial Location: foot (bilateral toes) Psychiatry: normal affect, normal mood Diagnosis, Assessment Plan Consultants: cardiology, cardiovascular surgery, nephrology, wound care Free Text DxA P Notes Free Text DxA P Notes: 67 YO female with PMHx of HTN, DM, CHF, ESRD on HD who initially presented at [facility] with SOB and fatigue. Charley luevano was treated for NSTEMI and acute CHF [...] ulcers/severe PAD 06/26/21: s/p peripheral angiogram and POOL TABLE OPERATOR to th e anterior tibial artery [employer] of right anterior/posterior tibial artery, n eed staged intervention on a later date 7. Debility PT/OT- Rehab eval ongoing Ok to DC to rehab from cardiology standpoint. Electronically Signed by Sabrina Tirado NP on 1 09/05/21 at 1146 Electronically Signed by Herson Tang MD on at 2130 RPT #:[id number] END OF REPORT 2022-07-05 10:37:00-00:00 [facility] ([facility]) Rehab Progress Note REPORT#:[id number] REPORT STATUS: Signed DATE:07/05/22 TIME: 1037 PATIENT: MESERET MOTTA UNIT #: [id number] ROOM/BED: [place] [address] : 56 AGE: 67 SEX: F ATTEND: Adonis Gaytan MD ADM AUTHOR: Lisa Vega NP * ALL edits or amendments must be made on the [employer]/computer document * Subjective Chief complaint: rehab follow-up [...] BUE +3/5 BLE HF -3/5 KE +3/5 Neuro/CHAINSTITCH SEWING MACHINE OPERATOR: sensory deficit ( decrease BLE), alert, oriented X 3, CNII-XII intact, normal speech Genitourinary: Results Findings/Data: Laboratory Tests: 07/05 07/04 07/04 [...] -End-stage renal disease on hemodialysis -Severe PVD-(s/p POOL TABLE OPERATOR and ath erectomy with CSI followed by POOL TABLE OPERATOR with TAVR balloon on left anterior and [...] decubitus precautions Monitor labs Wound care on residential case manager labs Advance therapies as tolerated. Patient particip ating in therapies Pt. no longer wants IRF. Wan ts snf in [place]. Discussed with CM. Order for SNF placed. [...] discussing discharge poc to SNF near home. Lucy valiente Rehab attestation: Face to face exam completed. Treatment plan disc ussed with patient. at 1040 [facility] #:[id number] END OF REPORT 2022-07-05 07:53:00-00:00 [id number] [place] [address] PATIENT NAME: MESERET MOTTA ADMIT DATE: 06/22 ACCOUNT NO: [id number] ROOM NO: [id number] AGE: 67 REPORT TYPE: 360 - QUERY RESPONSE DOCUMENT SEX: F ADMITTING PHYSICIAN:Delmy Ashton MD ATTENDING PHYSICIAN:Adonis Gaytan MD Provider Query QUERY TEXT: Clarification Infectious Status POA 360MD Query related questions should be directed to:Sage barrett [facility] Coding Query Helpline Based on your clinical judgment, can you provide the known or suspected condition(s) that represent(s) the clinical indicators listed below and if the condition(s) are present on admission (POA)? The following definitions are provided based on industry literature and in collaboration with [facility] for your reference only: [...] on at 0753 PATIENT NAME: MESERET MOTTA [id number] 5057-12-28 06:46:00-00:00 [facility]L [facility] ([facility]) Nephrology Progress Note REPORT#:[id number] REPORT STATUS: Signed DATE:07/05/22 TIME: 645 PATIENT: MESERET MOTTA UNIT #: [id number] ROOM/BED: [place] [address] : 56 AGE: 67 SEX: F ATTEND: Adonis Gaytan MD ADM AUTHOR: Jennifer Shelton MD * ALL edits or amendments must be made on the [employer]/computer document * Subjective Chief complaint: Transferred for CABG HPI: Patient seen and evaluated, discussed with care team, 67-year-old female with history of end-stage renal d isease on chronic hemodialysis Sunday, and Sunday, diabetes mellitus, peripheral arterial disease and hypertension who was transferred to [facility] for CABG. Terrence nt initially presented to [facility] in [place] compl aining of shortness of breath. Underwent [...] O2 Flow FiO2 Mean Ox Delivery Rate 07/05 0519 [...] L Albuterol/Ipratropium (DUONEB) 3 ML RTQ4H PRN MN N NEB Ticagrelor (BRILINTA) 90 MG Q12HR [...] Lidocaine HCl (LIDOCAINE HCL/PF) 0.5 ML ASDIR MN N I-DERMAL (CKD) Mannitol (MANNITOL 25% 12.5GM/50ML) 12.5 GM ASDI R PRN IV Sodium Chloride (SODIUM CHLORIDE 0.9%) 2,000 ML ASDIR PRN IV Sodium Chloride (SODIUM CHLORIDE) 5 ML ASDIR PRN IV Sodium Chloride (SODIUM CHLORIDE) 10 ML ASDIR MN N IV Sodium Chloride (SODIUM CHLORIDE 0.9%) [...] Musculoskeletal: no CVA tenderness, no tendernes s Neuro/CHAINSTITCH SEWING MACHINE OPERATOR: alert, normal speech Skin: dry, intact Ulcer: [...] - 32.0 %) 9.6 L 6.2 L Obion % (Auto) (4.8 - 9.0 %) 9.8 H 8.5 Eos % (Auto) (0.3 - 3.7 %) 4.2 H 2.9 Baso % (Auto) (0.0 - 2.0 %) 0.1 0.1 Neut # (Auto) (2.0 - 7.6 x10 3/uL) 5.91 7.24 Lymph # (Auto) (1.0 - 3.8 x10 3/uL) 0.75 L 0.55 L Obion # (Auto) (0.1 - 0.8 x10 3/uL) [...] the left foot plain radiographs. Impression By: Tiffany Onofre Laboratory Tests 07/05 07/04 07/04 07/04 07/04 [...] Jennifer Shelton MD on at 0945 RPT #:[id number] END OF REPORT 2022-07-04 14:52:00-00:00 [facility] REPORT#:[id number] REPORT STATUS: Signed DATE:07/04/22 TIME: 2 PATIENT: MESERET MOTTA UNIT #: [id number] ROOM/BED: [facility] : 56 AGE: 67 SEX: F ATTEND: Adonis Gaytan MD ADM AUTHOR: Adonis Gaytan MD * ALL edits or amendments must be made on the [employer]/computer document * Subjective Chief complaint: no cp. [...] soft, no distention Extremities: edema, moves all Neuro/CHAINSTITCH SEWING MACHINE OPERATOR: alert, oriented X 3, normal speech, n [...] BID 07/03 2100 AC 07/04 PO 08/02 205 1427 Polyethylene Glycol 17 GM DAILY 07/03 [...] 0759 1425 Calcitriol 0.5 MCG DAILY 06/23 09 AC 07/04 PO 07/23 0859 1426 Midodrine 5 MG 0900,1300,1700 06/23 09 AC 06/09 7 PO 07/23 0859 1426 Levothyroxine Sodium 150 MCG DAILY 0600 06/23 06 00 AC 07/04 PO 07/23 0559 0607 Buspirone HCl 5 MG BID 06/22 2100 AC 07/04 PO 07/22 2058 1426 Metoprolol Tartrate 12.5 MG Q12HR 06/22 2100 AC 07/03 PO 07/22 Pantoprazole 40 MG 0600,1800 06/22 1800 AC 12/ 7 PO 07/22 175 0607 Midodrine 10 MG DIALYSIS-DOSE 06/22 1545 [...] 2100 AC 06/09 6 SUBQ 07/21 2058 1152 Dextrose/Water 125 ML ASDIR PRN 06/21 1900 CKD IV 07/21 1859 Dextrose/Water 250 ML ASDIR PRN 06/21 1900 CKD IV 07/21 1859 Glucagon 1 MG ASDIR PRN 06/21 1900 AC IM 07/21 1859 Melatonin 3 MG BEDTIME PRN PRN 06/21 1900 AC PO 07/21 1852007 Acetaminophen 650 MG Q4H PRN PRN 06/21 1730 AC 1 09/04 PO 07/21 1729 0931 Heparin Sodium 5,000 UNIT ASDIR PRN 06/21 1730 A C 06/22 IV 07/21 1729 1449 Nitroglycerin 0.4 MG Q5M PRN PRN 06/21 1730 AC SL 07/21 1729 Ondansetron HCl 4 MG Q6H PRN PRN 06/21 173 AC 1 09/02 IV 07/21 Laboratory Tests: 07/04 07/04 07/04 07/04 07/03 1204 1010 8110 6638 [id number] Chemistry Sodium (134 - 147 mEq/L) 140 [...] (Auto) (14.0 - 32.0 %) 9.6 L Obion % (Auto) (4.8 - 9.0 %) 9.8 H Eos % (Auto) (0.3 - 3.7 %) 4.2 H Baso % (Auto) (0.0 - 2.0 %) 0.1 Neut # (Auto) (2.0 - 7.6 x10 3/uL) 5.91 Lymph # (Auto) (1.0 - 3.8 x10 3/uL) 0.75 L Obion # (Auto) (0.1 - 0.8 x10 3/uL) [...] had no vaginal bleeding for 15 years...ask estimating manager to see and check pelvic ultrasound. 07/02 - usg shows fibroids and estimating manager wants outpt f /u for endometrial bx. Severe PAD/toe ulcer: Status post POOL TABLE OPERATOR and atherec cheri with CSI followed by POOL TABLE OPERATOR with stable balloon on left anterior and [...] WBC increasing on unasyn. consult ID. ran chavez vanc? 07/04- bone scan ordered for her toes. results p ending. End-stage renal disease on hemodialysis Patient is on a Sunday sched regan Manager Solution following Functional quadriplegia: Rehab consult as recommended by cardiology. Pat iesae lives alone. 06/28 Elevated LFTs Secondary to [...] Case management consulted for inpatient rehab. Continue inpatie nt care. 06/30- WBC worsening. ID consulted. awaiting tra nsfer to rehab. 07/01- WBC better. ABX changed from unas yn to VANC. pt c/o DUB. estimating manager to see and check pelvis ultrasound. 07/02- Possible panic attack yesterday...to CCU..transfer back to telemetry. d/w bedside nurse. 07/03 - miralex for constipation. 07/04- Bone scan ordered for the toes. d /w skilled nursing case manager and plan is for SNF at [place]. awaiting insurance approval. Quality: Gen Med Crit Care VTE Prophylaxis VTE prophylaxis initiated: yes Current Medications Current medication review: I attest that the foregoing medication list in t he medical record is true, accurate, and complete to the best of my knowled ge. Electronically Signed by Adonis Gaytan MD on 06/09 01/27 at 1454 RPT #:[id number] END OF REPORT 2022-07-04 13:52:00-00:00 [facility] ([facility] Cardiology Progress Note REPORT#:[id number] REPORT STATUS: Signed DATE:07/04/22 TIME: 1352 PATIENT: MESERET MOTTA UNIT #: [id number] ROOM/BED: [place] [address] : 56 AGE: 67 SEX: F ATTEND: Adonis Gaytan MD ADM AUTHOR: Kristina Shah SENIOR COST ANALYST * ALL edits or amendments must be made on the [employer] document * Subjective Patient reports: No: complaints. [...] FiO2 Mean Ox Delivery Rate 07/04 0756 36.3 87 21 115/67 99 Nasal 3 cannula 07/04 0750 Nasal 2 cannula 07/04 0339 36.4 82 17 162/81 108.2 [...] L Albuterol/Ipratropium (DUONEB) 3 ML RTQ4H PRN MN N NEB Ticagrelor (BRILINTA) 90 MG Q12HR [...] Lidocaine HCl (LIDOCAINE HCL/PF) 0.5 ML ASDIR MN N I-DERMAL (CKD) Mannitol (MANNITOL 25% 12.5GM/50ML) 12.5 GM ASDI R PRN IV Sodium Chloride (SODIUM CHLORIDE 0.9%) 2,000 ML ASDIR PRN IV Sodium Chloride (SODIUM CHLORIDE) 5 ML ASDIR PRN IV Sodium Chloride (SODIUM CHLORIDE) 10 ML ASDIR MN N IV Sodium Chloride (SODIUM CHLORIDE 0.9%) [...] extremity: LE assessment: edema Musculoskeletal: normal inspection Neuro/CHAINSTITCH SEWING MACHINE OPERATOR: alert, oriented X 3, normal speech Skin: [...] (Auto) (14.0 - 32.0 %) 9.6 L Obion % (Auto) (4.8 - 9.0 %) 9.8 H Eos % (Auto) (0.3 - 3.7 %) 4.2 H Baso % (Auto) (0.0 - 2.0 %) 0.1 Neut # (Auto) (2.0 - 7.6 x10 3/uL) 5.91 Lymph # (Auto) (1.0 - 3.8 x10 3/uL) 0.75 L Obion # (Auto) (0.1 - 0.8 x10 3/uL) [...] 2.31 Results: labs reviewed, vital signs reviewed, [facility] personally rev'd Telemetry Interpretation: sinus rhythm Diagnosis, Assessment Plan Plan discussed with: patient, nurse Free Text DxA P Notes Free Text DxA P Notes: 67 YO female with PMHx of HTN, DM, CHF, ESRD on HD who initially presented at [facility] with SOB and fatigue. Sh e was [...] ulcers/severe PAD 06/26/21: s/p peripheral angiogram and POOL TABLE OPERATOR to th e anterior tibial artery [employer] of right anterior/posterior tibial artery, n eed staged intervention on a later date 7. Debility PT/OT- Rehab eval ongoing Ok to DC to rehab from cardiology standpoint. at 1603 Electronically Signed by Herson Tang MD on at 2130 RPT #:[id number] END OF REPORT 2022-07-04 12:32:00-00:00 [facility]L [facility]) Pulmonology Progress Note REPORT#:[id number] REPORT STATUS: Signed DATE:07/04/22 TIME: 1232 PATIENT: MESERET MOTTA UNIT #: [id number] ROOM/BED: [place] [address] : 56 AGE: 67 SEX: F ATTEND: Adonis Gaytan MD ADM AUTHOR: Ana Bobo * ALL edits or amendments must be made on the [employer]/computer document * Subjective Comments: Doing well, no new complaints ROS All systems rev neg: except as marked Objective General VS/I O: Last Documented: Result Date Time Pulse Ox 99 07/04 0756 B/P 115/67 07/04 0756 O2 Delivery Nasal cannula 07/04 075 O2 Flow Rate 3 07/04 075 Temp 36.3 07/04 0756 Pulse 87 07/04 [...] L Albuterol/Ipratropium (DUONEB) 3 ML RTQ4H PRN MN N NEB Ticagrelor (BRILINTA) 90 MG Q12HR [...] Lidocaine HCl (LIDOCAINE HCL/PF) 0.5 ML ASDIR MN N I-DERMAL (CKD) Mannitol (MANNITOL 25% 12.5GM/50ML) 12.5 GM ASDI R PRN IV Sodium Chloride (SODIUM CHLORIDE 0.9%) 2,000 ML ASDIR PRN IV Sodium Chloride (SODIUM CHLORIDE) 5 ML ASDIR PRN IV Sodium Chloride (SODIUM CHLORIDE) 10 ML ASDIR MN N IV Sodium Chloride (SODIUM CHLORIDE 0.9%) [...] n, no guarding Extremities: edema, no clubbing Neuro/CHAINSTITCH SEWING MACHINE OPERATOR: alert, oriented X 3, no motor deficit [...] (Auto) (14.0 - 32.0 %) 9.6 L Obion % (Auto) (4.8 - 9.0 %) 9.8 H Eos % (Auto) (0.3 - 3.7 %) 4.2 H Baso % (Auto) (0.0 - 2.0 %) 0.1 Neut # (Auto) (2.0 - 7.6 x10 3/uL) 5.91 Lymph # (Auto) (1.0 - 3.8 x10 3/uL) 0.75 L Obion # (Auto) (0.1 - 0.8 x10 3/uL) [...] surgery, nephrology, wound care at 1436 RPT #:[id number] END OF REPORT 2022-07-04 12:25:00-00:00 [facility] ([facility]) Infectious Dis. Progress Note REPORT#:[id number] REPORT STATUS: Signed DATE:07/04/22 TIME: 1225 PATIENT: MESERET MOTTA UNIT #: [id number] ROOM/BED: [place] [address] : 56 AGE: 67 SEX: F ATTEND: Adonis Gaytan MD ADM AUTHOR: Kasey Mendez MD * ALL edits or amendments must be made on the [employer]/computer document * Subjective HPI: 67 yr old [...] (Auto) (14.0 - 32.0 %) 9.6 L Obion % (Auto) (4.8 - 9.0 %) 9.8 H Eos % (Auto) (0.3 - 3.7 %) 4.2 H Baso % (Auto) (0.0 - 2.0 %) 0.1 Neut # (Auto) (2.0 - 7.6 x10 3/uL) 5.91 Lymph # (Auto) (1.0 - 3.8 x10 3/uL) 0.75 L Obion # (Auto) (0.1 - 0.8 x10 3/uL) [...] Q12HR 06/22 2100 AC 07/03 PO 07/22 205 1958 Lidocaine HCl 0.5 ML ASDIR PRN 06/22 1530 CKD I-DERMAL 07/23 1529 Atorvastatin Calcium 40 MG 06/21 2100 AC 09/03 PO 07/21 Nitroglycerin 0.4 MG Q5M PRN PRN 06/21 1730 AC SL 07/21 1729 Central Nervous System Agents Sig/Enedina Start time Last Medication Dose Route Stop Time Status Admin Buspirone HCl 5 MG BID 06/22 2100 AC 07/03 PO 07/22 2051999 Aspirin 81 MG C BK 06/22 0800 [...] BID 07/03 2100 AC 07/03 PO 08/02 2058 2000 Polyethylene Glycol 17 GM DAILY 07/03 1115 AC 1 09/03 PO 08/02 1114 1152 Magnesium Hydroxide 30 ML BID PRN PRN 07/02 134 5 AC 07/02 PO 08/01 1344 1448 Docusate Sodium 100 MG BID 06/30 0900 AC 07/03 PO 07/30 0859 1999 Pantoprazole 40 MG 0600,1800 06/22 1800 AC 06/09 7 PO 07/22 1759 0607 Ondansetron HCl 4 MG Q6H PRN PRN 06/21 1730 AC 07/02 IV 07/21 1729 2008 Hormones And Synthetic Substit Sig/Enedina Start time Last Medication Dose Route Stop Time Status Admin Levothyroxine Sodium 150 MCG DAILY 0600 06/23 0 600 AC 07/04 PO 07/23 0559 0607 Insulin Human Lispro 0 AC HS 06/21 2100 AC 06/09 6 SUBQ 07/21 205 1152 Glucagon 1 MG ASDIR PRN 06/21 1900 [...] Impression By: [email or web address] - Sha Hernandez M.D. Portions of this section wer e scribed [...] on 07/04/22 at 1225 at 1350 RPT #:[id number] END OF REPORT 2022-07-04 12:15:00-00:00 [facility] Rehab Progress Note REPORT#:[id number] REPORT STATUS: Signed DATE:07/04/22 TIME: 1215 PATIENT: MESERET MOTTA UNIT #: [id number] ROOM/BED: [place] [address] : 56 AGE: 67 SEX: F ATTEND: Adonis Gaytan MD ADM AUTHOR: Lisa Vega NP * ALL edits or amendments must be made on the [employer]/computer document * Subjective Chief complaint: rehab follow-up [...] L Albuterol/Ipratropium (DUONEB) 3 ML RTQ4H PRN MN N NEB Ticagrelor (BRILINTA) 90 MG Q12HR [...] Lidocaine HCl (LIDOCAINE HCL/PF) 0.5 ML ASDIR MN N I-DERMAL (CKD) Mannitol (MANNITOL 25% 12.5GM/50ML) 12.5 GM ASDI R PRN IV Sodium Chloride (SODIUM CHLORIDE 0.9%) 2,000 ML ASDIR PRN IV Sodium Chloride (SODIUM CHLORIDE) 5 ML ASDIR PRN IV Sodium Chloride (SODIUM CHLORIDE) 10 ML ASDIR MN N IV Sodium Chloride (SODIUM CHLORIDE 0.9%) [...] BUE +3/5 BLE HF -3/5 KE +3/5 Neuro/CHAINSTITCH SEWING MACHINE OPERATOR: sensory deficit ( decrease BLE), alert, oriented X 3, CNII-XII intact, normal speech Genitourinary: Results Findings/Data: Laboratory Tests: 07/04 07/04 07/04 07/04 07/03 [...] (Auto) (14.0 - 32.0 %) 9.6 L Obion % (Auto) (4.8 - 9.0 %) 9.8 H Eos % (Auto) (0.3 - 3.7 %) 4.2 H Baso % (Auto) (0.0 - 2.0 %) 0.1 Neut # (Auto) (2.0 - 7.6 x10 3/uL) 5.91 Lymph # (Auto) (1.0 - 3.8 x10 3/uL) 0.75 L Obion # (Auto) (0.1 - 0.8 x10 3/uL) [...] -End-stage renal disease on hemodialysis -Severe PVD-(s/p POOL TABLE OPERATOR and ath erectomy with CSI followed by POOL TABLE OPERATOR with TAVR balloon on left anterior and [...] decubitus precautions Monitor labs Wound care on residential case manager labs Advance therapies as tolerated. Patient particip ating in therapies Pt. no longer wants IRF. Wan snf in [place]. Discussed with CM. Order for SNF placed. [...] Treatment plan disc ussed with patient. at [facility] RPT #:[id number] END OF REPORT 2022-07-04 10:19:00-00:00 [facility] Prog.Note-Vancomycin REPORT#:[id number] REPORT STATUS: Signed DATE:07/04/22 TIME: 1019 PATIENT: MESERET MOTTA UNIT #: [id number] ROOM/BED: [place] [address] : 56 AGE: 67 SEX: F ATTEND: Adonis Gaytan MD ADM AUTHOR: Florentino Roberts [facility] * ALL edits or amendments must be made on the [employer]/computer document * Vancomycin Vancomycin Medication Therapy Goal: Pre-HD vanco goal 15-20mcg/mL Indication for treatment: SSTI Current therapy: Post-HD vancomycin 1000 mg IV once VS and I/O: Vital Signs Date Temp Pulse Resp B/P B/P Mean Pulse Ox FiO 2 07/01-07/04 96.1-98.6 71-138 15-39 104-162/54-8 9 75-108.2 95-100 72 hours ending at 0700 07/04 0700 07/03 1900 07/03 0707/02 1900 07/01 07 1900 Intake 310.00 410.00 840 650.00 Total Output 0 3834 Total Balance 310.00 410.00 840 -3184.00 Intake, IV 10.00 10.00 250.00 Intake, 300 400 840 400 Oral Number 0 1 Bowel Movements Number 2 2 4 Voids Output, 3834 Hemodialys is Output, 0 Stool 72 Hour I O Total 07/04 0700 Intake Total 310.00 1250.00 650.00 Output Total [...] hypertension, diabetes, hypothyroidism, who was transferred from [facility] on 08/23 for evaluation for CABG. Patient [...] hours * Renal function:ESRD on HD on a, Last HD session on 07/04, No residual UOP documented * Dosing/monitoring: Day 5 o f 7. Vancomycin loading dose 1750 mg ( 16 mg/kg) x1 given on 06/30. Random vanc level on 07/01 at 05 00 was 22.4 mcg/ml, supratherapeutic, pre-HD goal 15-20 mcg/ ml Pt still re-dosed with vanc 1000 mg IV x 1 post HD on 07/01. Random PreHD level on 1 09/04 AM = 19.9 mcg/mL, therapeutic. Goal PreHD 15-2 0 mcg/ml. Will re-dose with Vancomycin 1000mg IV x1 postHD today. Plan to repeat vanc level on 07/06 prior to next HD session. Electronically Signed by Florentino Roberts [facility] on at 1020 RPT #:[id number] END OF REPORT 2022-07-04 09:34:00-00:00 [facility] Wound Care Progress Note REPORT#:[id number] REPORT STATUS: Signed DATE:07/04/22 TIME: 933 PATIENT: MESERET MOTTA UNIT #: [id number] ROOM/BED: [place] [address] : 56 AGE: 67 SEX: F ATTEND: Adonis Gaytan MD ADM AUTHOR: Sybil Byers MD * ALL edits or amendments must be made on the [employer]/computer document * Subjective Chief complaint: Woundcare FU [...] L Albuterol/Ipratropium (DUONEB) 3 ML RTQ4H PRN MN N NEB Ticagrelor (BRILINTA) 90 MG Q12HR [...] Lidocaine HCl (LIDOCAINE HCL/PF) 0.5 ML ASDIR MN N I-DERMAL (CKD) Mannitol (MANNITOL 25% 12.5GM/50ML) 12.5 GM ASDI R PRN IV Sodium Chloride (SODIUM CHLORIDE 0.9%) 2,000 ML ASDIR PRN IV Sodium Chloride (SODIUM CHLORIDE) 5 ML ASDIR PRN IV Sodium Chloride (SODIUM CHLORIDE) 10 ML ASDIR MN N IV Sodium Chloride (SODIUM CHLORIDE 0.9%) [...] Report Impression - Status: SIGNED Entered: 07/01/2022 7322 IMPRESSION: Limited exam 1. Probable uterine fibroids. [...] 06/30 1045 AC PO 07/30 1044 0125 Docusate Sodium 100 MG BID 06/30 0900 AC 07/03 PO 07/30 0859 1999 Sodium Chloride 1 SPRAY Q2H PRN PRN [...] 0859 0838 Midodrine 5 MG 0900,1300,1700 06/23 09 AC 06/09 PO 07/23 0859 1702 Levothyroxine Sodium 150 [...] 40 MG 2100 06/21 2100 AC 1 09/03 PO 07/21 Insulin Human Lispro 0 [...] 09/02 IV 07/21 Laboratory Tests: 07/04 07/04 07/03 07/03 07/03 [...] (Auto) (14.0 - 32.0 %) 9.6 L Obion % (Auto) (4.8 - 9.0 %) 9.8 H Eos % (Auto) (0.3 - 3.7 %) 4.2 H Baso % (Auto) (0.0 - 2.0 %) 0.1 Neut # (Auto) (2.0 - 7.6 x10 3/uL) 5.91 Lymph # (Auto) (1.0 - 3.8 x10 3/uL) 0.75 L Obion # (Auto) (0.1 - 0.8 x10 3/uL) [...] Sybil Byers MD on at 2152 RPT #:[id number] END OF REPORT 2022-07-04 07:04:00-00:00 [facility] ([facility]) Nephrology Progress Note REPORT#:[id number] REPORT STATUS: Signed DATE:07/04/22 TIME: 07 PATIENT: MESERET MOTTA UNIT #: [id number] ROOM/BED: [place] [address] : 56 AGE: 67 SEX: F ATTEND: Adonis Gaytan MD ADM AUTHOR: Jennifer Shelton MD * ALL edits or amendments must be made on the [employer]/computer document * Subjective Chief complaint: Transferred for CABG HPI: Patient seen and evaluated, discussed with care team, 67-year-old female with history of end-stage renal d isease on chronic hemodialysis Sunday, and Sunday, diabetes mellitus, peripheral arterial disease and hypertension who was transferred to [facility] for CABG. Terrence quevedo initially presented to [facility] in [place] compl aining of shortness of breath. Underwent [...] L Albuterol/Ipratropium (DUONEB) 3 ML RTQ4H PRN MN N NEB Ticagrelor (BRILINTA) 90 MG Q12HR [...] Lidocaine HCl (LIDOCAINE HCL/PF) 0.5 ML ASDIR MN N I-DERMAL (CKD) Mannitol (MANNITOL 25% 12.5GM/50ML) 12.5 GM ASDI R PRN IV Sodium Chloride (SODIUM CHLORIDE 0.9%) 2,000 ML ASDIR PRN IV Sodium Chloride (SODIUM CHLORIDE) 5 ML ASDIR PRN IV Sodium Chloride (SODIUM CHLORIDE) 10 ML ASDIR MN N IV Sodium Chloride (SODIUM CHLORIDE 0.9%) [...] Musculoskeletal: no CVA tenderness, no tendernes s Neuro/CHAINSTITCH SEWING MACHINE OPERATOR: alert, normal speech Skin: dry, intact Ulcer: [...] - 32.0 %) 6.2 L 7.5 L Obion % (Auto) (4.8 - 9.0 %) 8.5 8.4 Eos % (Auto) (0.3 - 3.7 %) 2.9 2.7 Baso % (Auto) (0.0 - 2.0 %) 0.1 0.1 Neut # (Auto) (2.0 - 7.6 x10 3/uL) 7.24 6.93 Lymph # (Auto) (1.0 - 3.8 x10 3/uL) 0.55 L 0.64 L Obion # (Auto) (0.1 - 0.8 x10 3/uL) [...] by Jennifer Shelton MD on at 0955 RPT #:[id number] END OF REPORT 2022-07-03 15:58:00-00:00 [facility] REPORT#:[id number] REPORT STATUS: Signed DATE:07/03/22 TIME: 1558 PATIENT: MESERET MOTTA UNIT #: [id number] ROOM/BED: [place] [address] : 56 AGE: 67 SEX: F ATTEND: Adonis Gaytan MD ADM AUTHOR: Chris Estevez MD * ALL edits or amendments must be made on the [employer]/computer document * Subjective Chief complaint: SOB Comments: [...] n, no guarding Extremities: edema, no clubbing Neuro/CHAINSTITCH SEWING MACHINE OPERATOR: alert, oriented X 3, no motor deficit [...] MD on 06/09 12/28 at 1558 RPT #:[id number] END OF REPORT 2022-07-03 13:39:00-00:00 [facility] ([facility]) Wound Care Progress Note REPORT#:[id number] REPORT STATUS: Signed DATE:07/03/22 TIME: 1339 PATIENT: MESERET MOTTA UNIT #: [id number] ROOM/BED: [place] [address] : 56 AGE: 67 SEX: F ATTEND: Adonis Gaytan MD ADM AUTHOR: Sybil Byers MD * ALL edits or amendments must be made on the [employer]/computer document * Subjective Chief complaint: Woundcare FU [...] L Albuterol/Ipratropium (DUONEB) 3 ML RTQ4H PRN MN N NEB Ticagrelor (BRILINTA) 90 MG Q12HR [...] Lidocaine HCl (LIDOCAINE HCL/PF) 0.5 ML ASDIR MN N I-DERMAL (CKD) Mannitol (MANNITOL 25% 12.5GM/50ML) 12.5 GM ASDI R PRN IV Sodium Chloride (SODIUM CHLORIDE 0.9%) 2,000 ML ASDIR PRN IV Sodium Chloride (SODIUM CHLORIDE) 5 ML ASDIR PRN IV Sodium Chloride (SODIUM CHLORIDE) 10 ML ASDIR MN N IV Sodium Chloride (SODIUM CHLORIDE 0.9%) [...] D/W [ ] Other MD's [x ] Pa nata [ ] Family [ x ] Nursing [ ] Case Management Consultants: cardiology, cardiovascular surgery, nephrology, wound care Electronically Signed by Sybil Byers MD on at 0933 RPT #:[id number] END OF REPORT 2022-07-03 11:10:00-00:[address] [facility] Hospitalist Progress Note REPORT#:[id number] REPORT STATUS: Signed DATE:07/03/22 TIME: 1110 PATIENT: MESERET MOTTA UNIT #: [id number] ROOM/BED: [place] [address] : 56 AGE: 67 SEX: F ATTEND: Adonis Gaytan MD ADM AUTHOR: Adonis Gaytan MD * ALL edits or amendments must be made on the [employer]/computer document * Subjective Chief complaint: c/o of [...] soft, no distention Extremities: edema, moves all Neuro/CHAINSTITCH SEWING MACHINE OPERATOR: alert, oriented X 3, normal speech, n [...] 0600,1800 06/22 1800 AC 07/02 PO 07/22 1759 1752 Midodrine 10 MG DIALYSIS-DOSE 06/22 1545 CKD [...] ML ASDIR PRN 06/22 1530 A C 07/01 IV 07/23 1529 1500 Sodium Chloride 5 ML ASDIR PRN 06/22 1530 AC IV 07/22 1529 Sodium Chloride 10 ML ASDIR PRN 06/22 1530 AC IV 07/22 1529 1616 Sodium Chloride 250 ML ASDIR PRN 06/22 1530 AC IV 07/22 1529 Aspirin 81 MG C BK 06/22 0800 AC 07/03 PO 07/22 0759 0837 Atorvastatin Calcium 40 MG 2100 06/21 2100 AC 09/02 PO 07/21 2052007 Insulin Human Lispro 0 AC HS 06/21 [...] 06/21 1730 AC 1 09/02 PO 07/21 1729 2359 Heparin Sodium 5,000 UNIT ASDIR PRN 06/21 1730 A C 06/22 IV 07/21 1729 1449 Nitroglycerin 0.4 MG Q5M PRN PRN 06/21 1730 AC SL 07/21 1729 Ondansetron HCl 4 MG Q6H PRN PRN 06/21 1730 AC 07/02 IV 07/21 1729 2008 Laboratory Tests: 07/03 07/03 07/02 07/02 07/02 [...] (Auto) (14.0 - 32.0 %) 6.2 L Obion % (Auto) (4.8 - 9.0 %) 8.5 Eos % (Auto) (0.3 - 3.7 %) 2.9 Baso % (Auto) (0.0 - 2.0 %) 0.1 Neut # (Auto) (2.0 - 7.6 x10 3/uL) 7.24 Lymph # (Auto) (1.0 - 3.8 x10 3/uL) 0.55 L Obion # (Auto) (0.1 - 0.8 x10 3/uL) [...] had no vaginal bleeding for 15 years...ask estimating manager to see and check pelvic ultrasound. 07/02 - usg shows fibroids and estimating manager wants outpt f /u for endometrial bx. Severe PAD/toe ulcer: Status post POOL TABLE OPERATOR and atherec cheri with CSI followed by POOL TABLE OPERATOR with stable balloon on left anterior and [...] 06/30- WBC increasing on unasyn. consult ID. nee d vanc? End-stage renal disease on hemodialysis Patient is on a Sunday sched jaxon Manager Solution following Functional quadriplegia: Rehab consult as recommended by cardiology. Rosalia colón lives alone. 06/28 Elevated LFTs Secondary to [...] unas yn to VANC. pt c/o DUB. estimating manager to see and check pelvis ultrasound. 07/02- Possible panic attack yesterday...to CCU..transfer back to telemetry. d/w bedside nurse. 07/03 - miralex for constipation. Quality: Gen Med Crit Care VTE Prophylaxis VTE prophylaxis initiated: yes Current Medications Current medication review: I attest that the foregoing medication list in [facility] medical record is true, accurate, and complete to the best of my knowled ge. Electronically Signed by Adonis Gaytan MD on 06/09 12/28 at 1112 RPT #:[id number] END OF REPORT 2022-07-03 10:11:00-00:00 [facility] Cardiology Progress Note REPORT#:[id number] REPORT STATUS: Signed DATE:07/03/22 TIME: 1011 PATIENT: MESERET MOTTA UNIT #: [id number] ROOM/BED: [facility] : 56 AGE: 67 SEX: F ATTEND: Adonis Gaytan MD ADM AUTHOR: Brian Alfred MD * ALL edits or amendments must be made on the [employer]/computer document * Subjective Chief complaint: feeling better [...] L Albuterol/Ipratropium (DUONEB) 3 ML RTQ4H PRN MN N NEB Ticagrelor (BRILINTA) 90 MG Q12HR [...] Lidocaine HCl (LIDOCAINE HCL/PF) 0.5 ML ASDIR MN N I-DERMAL (CKD) Mannitol (MANNITOL 25% 12.5GM/50ML) 12.5 GM ASDI R PRN IV Sodium Chloride (SODIUM CHLORIDE 0.9%) 2,000 ML ASDIR PRN IV Sodium Chloride (SODIUM CHLORIDE) 5 ML ASDIR PRN IV Sodium Chloride (SODIUM CHLORIDE) 10 ML ASDIR MN N IV Sodium Chloride (SODIUM CHLORIDE 0.9%) [...] edema, abnormal pedal pulse Musculoskeletal: normal inspection Neuro/CHAINSTITCH SEWING MACHINE OPERATOR: alert, oriented X 3, normal speech Skin: [...] (Auto) (14.0 - 32.0 %) 6.2 L Obion % (Auto) (4.8 - 9.0 %) 8.5 Eos % (Auto) (0.3 - 3.7 %) 2.9 Baso % (Auto) (0.0 - 2.0 %) 0.1 Neut # (Auto) (2.0 - 7.6 x10 3/uL) 7.24 Lymph # (Auto) (1.0 - 3.8 x10 3/uL) 0.55 L Obion # (Auto) (0.1 - 0.8 x10 3/uL) [...] ESRD on HD who initially presented at [facility] with SOB and fatigue. Sh regan was [...] ulcers/severe PAD 06/26/21: s/p peripheral angiogram and POOL TABLE OPERATOR to th e anterior tibial artery [employer] of right anterior/posterior tibial artery, n eed [...] MD on 1 09/04/21 at 0754 RPT #:[id number] END OF REPORT 2022-07-03 09:30:00-00:00 [facility] ([facility] Infectious Dis. Progress Note REPORT#:[id number] REPORT STATUS: Signed DATE:07/03/22 TIME: 929 PATIENT: MESERET MOTTA UNIT #: [id number] ROOM/BED: [place] [address] : 56 AGE: 67 SEX: F ATTEND: Adonis Gaytan MD ADM AUTHOR: Kasey Mendez MD * ALL edits or amendments must be made on the [employer]/computer document * Subjective HPI: 67 yr old with esrd on hd admitted after multiple falls and left foot vascular ulcers sec to severe PVD. Patient reports: No: complaints. Objective General VS/I O: Vital Signs Date Temp Pulse Resp B/P B/P Mean Pulse Ox FiO2 07/02-07/03 97.9-98.6 74-91 15- 110-146/59-77 79.3-99 95-100 Last Documented: Result Date [...] (Auto) (14.0 - 32.0 %) 6.2 L Obion % (Auto) (4.8 - 9.0 %) 8.5 Eos % (Auto) (0.3 - 3.7 %) 2.9 Baso % (Auto) (0.0 - 2.0 %) 0.1 Neut # (Auto) (2.0 - 7.6 x10 3/uL) 7.24 Lymph # (Auto) (1.0 - 3.8 x10 3/uL) 0.55 L Obion # (Auto) (0.1 - 0.8 x10 3/uL) [...] 0.1 x10 3/uL) 0.0 0 Laboratory Tests 07/03/22 0540: [Embedded Image Not Available] 07/02/22 0617: [Embedded Image Not Available] Microbiology: 06/30 125 URINE: Urine Culture - [...] L Albuterol/Ipratropium (DUONEB) 3 ML RTQ4H PRN MN N NEB Ticagrelor (BRILINTA) 90 MG Q12HR [...] Lidocaine HCl (LIDOCAINE HCL/PF) 0.5 ML ASDIR MN N I-DERMAL (CKD) Mannitol (MANNITOL 25% 12.5GM/50ML) 12.5 GM ASDI R PRN IV Sodium Chloride (SODIUM CHLORIDE 0.9%) 2,000 ML ASDIR PRN IV Sodium Chloride (SODIUM CHLORIDE) 5 ML ASDIR PRN IV Sodium Chloride (SODIUM CHLORIDE) 10 ML ASDIR MN N IV Sodium Chloride (SODIUM CHLORIDE 0.9%) [...] surgery, nephrology, wound care at 1349 RPT #:[id number] END OF REPORT 2022-07-03 09:15:00-00:00 [facility] ([facility]) Pharmacy Prog.Note-Vancomycin REPORT#:[id number] REPORT STATUS: Signed DATE:07/03/22 TIME: 914 PATIENT: MESERET MOTTA UNIT #: [id number] ROOM/BED: [place] [address] : 56 AGE: 67 SEX: F ATTEND: Adonis Gaytan MD ADM AUTHOR: Nikolai Garsia h * ALL edits or amendments must be made on the [employer] document * Vancomycin Vancomycin Medication Therapy Goal: Pre-HD vanco goal 15-20mcg/mL Indication for treatment: SSTI Current therapy: Post-HD vancomycin 1000 mg IV once VS and I/O: Vital Signs Date Temp Pulse Resp B/P B/P Mean Pulse Ox FiO2 06/30-07/03 96.1-98.2 71-138 15-39 104-152/54-8 9 75-103 95-100 72 hours ending at 0700 07/03 0700 07/02 1900 07/02 0700 07/01 1900 06/30 0700 1900 Intake 410.00 840 650.00 Total Output [...] hypertension, diabetes, hypothyroidism, who was transferred from [facility] on 08/23 for evaluation for CABG. Patient [...] on TuThSa * Last HD session on 07/01, next [...] to follow and monitor at 0927 RPT #:[id number] END OF REPORT 2022-07-03 08:20:00-00:00 [facility]) Nephrology Progress Note REPORT#:[id number] REPORT STATUS: Signed DATE:07/03/22 TIME: 819 PATIENT: MESERET MOTTA UNIT #: [id number] ROOM/BED: 4404-1 : 56 AGE: 67 SEX: F ATTEND: Adonis Gaytan MD ADM AUTHOR: Jennifer Shelton MD * ALL edits or amendments must be made on the [employer]/computer document * Subjective Chief complaint: Transferred for CABG HPI: Patient seen and evaluated, discussed with care team, 67-year-old female with history of end-stage renal d isease on chronic hemodialysis Sunday, and Sunday, diabetes mellitus, peripheral arterial disease and hypertension who was transferred to [facility] for CABG. Terrence quevedo initially presented to [facility] in [place] compl aining of shortness of breath. Underwent [...] L Albuterol/Ipratropium (DUONEB) 3 ML RTQ4H PRN MN N NEB Ticagrelor (BRILINTA) 90 MG Q12HR [...] Lidocaine HCl (LIDOCAINE HCL/PF) 0.5 ML ASDIR MN N I-DERMAL (CKD) Mannitol (MANNITOL 25% 12.5GM/50ML) 12.5 GM ASDI R PRN IV Sodium Chloride (SODIUM CHLORIDE 0.9%) 2,000 ML ASDIR PRN IV Sodium Chloride (SODIUM CHLORIDE) 5 ML ASDIR PRN IV Sodium Chloride (SODIUM CHLORIDE) 10 ML ASDIR MN N IV Sodium Chloride (SODIUM CHLORIDE 0.9%) [...] Musculoskeletal: no CVA tenderness, no tendernes s Neuro/CHAINSTITCH SEWING MACHINE OPERATOR: alert, normal speech Skin: dry, intact Ulcer: [...] (Auto) (14.0 - 32.0 %) 6.2 L Obion % (Auto) (4.8 - 9.0 %) 8.5 Eos % (Auto) (0.3 - 3.7 %) 2.9 Baso % (Auto) (0.0 - 2.0 %) 0.1 Neut # (Auto) (2.0 - 7.6 x10 3/uL) 7.24 Lymph # (Auto) (1.0 - 3.8 x10 3/uL) 0.55 L Obion # (Auto) (0.1 - 0.8 x10 3/uL) [...] and laboratories reviewed. [facility], and Sunday, plan for hemodialysis [...] 4 L if tolerated. 06/30/2022 laboratory this [facility] showed sodium 138, potassium 4.2, CO2 [...] by Jennifer Shelton MD on at 0938 RPT #:[id number] END OF REPORT 2022-07-03 06:56:00-00:00 [facility] REPORT#:[id number] REPORT STATUS: Signed DATE:07/03/22 TIME: 655 PATIENT: MESERET MOTTA UNIT #: [id number] ROOM/BED: [place] [address] : 56 AGE: 67 SEX: F ATTEND: Adonis Gaytan MD ADM AUTHOR: Shelton Vega * ALL edits or amendments must be made on the [employer]/computer document * Subjective Chief complaint: rehab follow-up [...] L Albuterol/Ipratropium (DUONEB) 3 ML RTQ4H PRN MN N NEB Ticagrelor (BRILINTA) 90 MG Q12HR [...] Lidocaine HCl (LIDOCAINE HCL/PF) 0.5 ML ASDIR MN N I-DERMAL (CKD) Mannitol (MANNITOL 25% 12.5GM/50ML) 12.5 GM ASDI R PRN IV Sodium Chloride (SODIUM CHLORIDE 0.9%) 2,000 ML ASDIR PRN IV Sodium Chloride (SODIUM CHLORIDE) 5 ML ASDIR PRN IV Sodium Chloride (SODIUM CHLORIDE) 10 ML ASDIR MN N IV Sodium Chloride (SODIUM CHLORIDE 0.9%) [...] of Care: Yes PT charges: [place] [id number] FT/Therap. Activity 15172 Gait Cmt: Pt agreable to gait training, [...] BUE +3/5 BLE HF -3/5 KE +3/5 Neuro/CHAINSTITCH SEWING MACHINE OPERATOR: sensory deficit ( decrease BLE), alert, oriented [...] - 2.40 mg/dL) 2.20 06/30 06/30 06/30 1759 1309 0725 Chemistry Sodium (134 - 147 mEq/L) [...] %) 7.5 L 7.7 L 3.1 L Obion % (Auto) (4.8 - 9.0 %) 8.4 8.2 4.9 Eos % (Auto) (0.3 - 3.7 %) 2.7 2.8 0.5 Baso % (Auto) (0.0 - 2.0 %) 0.1 0.2 0.1 Neut # (Auto) (2.0 - 7.6 x10 3/uL) 6.93 7.99 H 10.86 H Lymph # (Auto) (1.0 - 3.8 x10 3/uL) 0.64 L 0.76 L 0.37 L Obion # (Auto) (0.1 - 0.8 x10 3/uL) [...] Report Impression - Status: SIGNED Entered: 07/01/2022 3400 IMPRESSION: Limited exam 1. Probable uterine fibroids. [...] - Sha Hernandez M.D. Diagnosis, Assessment Plan Free Text A P: 67-year-old female with weakness and impaired mo bility 2/2 cardiac myopathy positive for NSTEMI Multivessel CAD, acute on ch ronic diastolic heart failure -End-stage renal disease on hemodialysis -Severe PVD-(s/p POOL TABLE OPERATOR and ath erectomy with CSI followed by POOL TABLE OPERATOR with TAVR balloon on left anterior and [...] decubitus precautions Monitor labs Wound care on residential case manager labs Advance therapies as tolerated. Patient particip ating in therapies Pt. no longer wants IRF. [facility] in [place]. Discussed with CM. Order for SNF placed. TT:33 mins: time spent reviewing chart, meds, la bs notes and assessing pt and discussing rehab poc. Answered all quesions Consultants: cardiology, cardiovascular surgery, nephrology, wound care Rehab attestation: . Electronically Signed by Shelton Vega on 1 09/03/21 at 1629 [facility] #:[id number] END OF REPORT 2022-07-02 12:34:00-00:00 [facility] ([facility]) Pulmonology Progress Note REPORT#:[id number] REPORT STATUS: Signed DATE:07/02/22 TIME: 1234 PATIENT: MESERET MOTTA UNIT #: [id number] ROOM/BED: [place] [address] : 56 AGE: 67 SEX: F ATTEND: Adonis Gaytan MD ADM AUTHOR: Chris Estevez MD * ALL edits or amendments must be made on the [employer]/computer document * Subjective Chief complaint: SOB Comments: [...] 96.8 07/01 2000 FiO2 21 06/28 2342 24 hour [...] n, no guarding Extremities: edema, no clubbing Neuro/CHAINSTITCH SEWING MACHINE OPERATOR: alert, oriented X 3, no motor deficit [...] MD on 06/09 11/27 at 1235 RPT #:[id number] END OF REPORT 2022-07-02 11:45:00-00:00 [facility] Hospitalist Progress Note REPORT#:[id number] REPORT STATUS: Signed DATE:07/02/22 TIME: 1145 PATIENT: MESERET MOTTA UNIT #: [id number] ROOM/BED: [place] [address] : 56 AGE: 67 SEX: F ATTEND: Adonis Gaytan MD ADM AUTHOR: Adonis Gaytan MD * ALL edits or amendments must be made on the [employer]/computer document * Subjective Chief complaint: events noted. a "CODE BLUE" called yesterday at [facility], but no loss of pulse (pt believes [...] soft, no distention Extremities: edema, moves all Neuro/CHAINSTITCH SEWING MACHINE OPERATOR: alert, oriented X 3, normal speech, n o motor deficits Ulcer: Type/cause: diabetic, arterial Location: foot (bilateral toes) Psychiatry: normal affect Results Radiology data: Laboratory Tests 07/02/22 0617: [Embedded Image Not Available] 07/01/22 1430: [Embedded Image Not Available] 07/01/22 0615: [Embedded Image Not Available] Current Medications Sig/Enedina Start time Last Medication Dose Route Stop Time Status Admin Epoetin Vanesa-epbx 6,000 UNIT TuThSa@07/01 2 300 AC 07/02 SUBQ 07/31 2259 0052 Mupirocin 1 APPLIC BID 07/01 2100 AC 07/02 NASAL 07/06 0901 0822 Vancomycin HCl 1,000 MG ONCE ONE 07/01 2100 DC 07/01 Sodium Chloride 250 ML IV 07/01 2159 205 Miscellaneous 1 EACH ASDIR 06/30 1300 CKD [...] 1645 AC 07/01 Acetaminophen PO 07/02 1644 2056 Atropine Sulfate 0.5 MG ASDIR PRN 06/27 1600 AC IV 07/27 1559 Sodium Chloride 500 ML ASDIR PRN 06/27 1600 AC IV 07/27 1559 Sevelamer Carbonate 3,200 MG C MEALS 06/26 0800 AC 07/02 PO 07/26 0759 0823 Epoetin Vanesa-epbx 6,000 UNIT TuThSa@06/24 2 100 DC 06/29 SUBQ 07/24 Calcitriol 0.5 MCG DAILY 06/23 0900 AC 07/02 PO 07/23 0859 0824 Midodrine 5 MG 0900,1300,1700 06/23 0900 AC 12/2 5 PO 07/23 0859 0823 Levothyroxine Sodium [...] 40 MG 2100 06/21 2100 AC 1 09/01 PO 07/21 Insulin Human Lispro 0 AC HS 06/21 2100 AC 07/02 SUBQ 07/21 2058 08 Dextrose/Water 125 ML ASDIR PRN 06/21 1900 CKD IV 07/21 185 Dextrose/Water 250 ML ASDIR PRN 06/21 1900 CKD IV 07/21 1859 Glucagon 1 MG ASDIR PRN 06/21 1900 AC IM 07/21 1859 Melatonin 3 MG BEDTIME PRN PRN 06/21 1900 AC PO 07/21 1859 2343 Acetaminophen 650 MG Q4H PRN PRN 06/21 173 AC 1 08/28 PO 07/21 1729 1301 Heparin Sodium 5,000 UNIT ASDIR PRN 06/21 173 A C 06/22 IV 07/21 1729 1449 Nitroglycerin 0.4 MG Q5M PRN PRN 06/21 173 AC SL 07/21 172 Ondansetron HCl 4 MG Q6H PRN PRN 06/21 1730 AC 09/02 IV 07/21 1729 0823 Laboratory Tests: [...] (Auto) (14.0 - 32.0 %) 7.5 L Obion % (Auto) (4.8 - 9.0 %) 8.4 Eos % (Auto) (0.3 - 3.7 %) 2.7 Baso % (Auto) (0.0 - 2.0 %) 0.1 Neut # (Auto) (2.0 - 7.6 x10 3/uL) 6.93 Lymph # (Auto) (1.0 - 3.8 x10 3/uL) 0.64 L Obion # (Auto) (0.1 - 0.8 x10 3/uL) [...] had no vaginal bleeding for 15 years...ask estimating manager to see and check pelvic ultrasound. 07/02 - usg shows fibroids and estimating manager wants outpt f /u for endometrial bx. Severe PAD/toe ulcer: Status post POOL TABLE OPERATOR and atherec cheri with CSI followed by POOL TABLE OPERATOR with stable balloon on left anterior and [...] Patient is on a Sunday sched jaxon Manager Solution following Functional quadriplegia: Rehab consult as recommended by cardiology. Rosalia colón lives alone. 06/28 Elevated LFTs Secondary to [...] Case management [facility]- WBC worsening. ID consulted. awaiting tra nsfer to rehab. 07/01- WBC better. ABX changed from unas yn to VANC. pt c/o DUB. estimating manager to see and check pelvis ultrasound. 07/02- Possible panic attack yesterday...to CCU..transfer back to telemetry. d/w bedside nurse. Quality: Gen Med Crit Care VTE Prophylaxis VTE prophylaxis initiated: yes Current Medications Current medication review: I attest that the foregoing medication list in [facility] medical record is true, accurate, and complete to the best of my knowled ge. Electronically Signed by Adonis Gaytan MD on 06/09 11/27 at 1147 RPT #:[id number] END OF REPORT 2022-07-02 10:59:00-00:00 [facility] Cardiology Progress Note REPORT#:[id number] REPORT STATUS: Signed DATE:07/02/22 TIME: 1059 PATIENT: MESERET MOTTA UNIT #: [id number] ROOM/BED: [place] [address] : 56 AGE: 67 SEX: F ATTEND: Adonis Gaytan MD ADM AUTHOR: Brian Alfred MD * ALL edits or amendments must be made on the [employer]/computer document * Subjective Chief complaint: feeling better [...] F low FiO2 Mean Ox Delivery Rate 12/26 0713 97.9 91 19 110/64 79.3 96 [...] AL Albuterol/Ipratropium (DUONEB) 3 ML RTQ4H PRN MN N NEB Ticagrelor (BRILINTA) 90 MG Q12HR [...] Lidocaine HCl (LIDOCAINE HCL/PF) 0.5 ML ASDIR MN N I-DERMAL (CKD) Mannitol (MANNITOL 25% 12.5GM/50ML) 12.5 GM ASDI R PRN IV Sodium Chloride (SODIUM CHLORIDE 0.9%) 2,000 ML ASDIR PRN IV Sodium Chloride (SODIUM CHLORIDE) 5 ML ASDIR PRN IV Sodium Chloride (SODIUM CHLORIDE) 10 ML ASDIR MN N IV Sodium Chloride (SODIUM CHLORIDE 0.9%) [...] edema, abnormal pedal pulse Musculoskeletal: normal inspection Neuro/CHAINSTITCH SEWING MACHINE OPERATOR: alert, oriented X 3, normal speech Skin: [...] (Auto) (14.0 - 32.0 %) 6.2 L Obion % (Auto) (4.8 - 9.0 %) 8.5 Eos % (Auto) (0.3 - 3.7 %) 2.9 Baso % (Auto) (0.0 - 2.0 %) 0.1 Neut # (Auto) (2.0 - 7.6 x10 3/uL) 7.24 Lymph # (Auto) (1.0 - 3.8 x10 3/uL) 0.55 L Obion # (Auto) (0.1 - 0.8 x10 3/uL) [...] ESRD on HD who initially presented at [facility] with SOB and fatigue. Sh regan was [...] ulcers/severe PAD 06/26/21: s/p peripheral angiogram and POOL TABLE OPERATOR to th e anterior tibial artery [employer] of right anterior/posterior tibial artery, n eed [...] MD on 1 09/03/21 at 0953 RPT #:[id number] END OF REPORT 2022-07-02 10:32:00-00:00 [facility] ([facility]) Nephrology Progress Note REPORT#:[id number] REPORT STATUS: Signed DATE:07/02/22 TIME: 1032 PATIENT: MESERET MOTTA UNIT #: [id number] [facility]BED: [facility] : [facility] AGE: 67 SEX: F ATTEND: Adonis Gaytan MD ADM AUTHOR: Stella Mojica MD * ALL edits or amendments must be made on the [employer] document * Subjective Chief complaint: Transferred for CABG HPI: Patient seen and evaluated, discussed with care team, 67-year-old female with history of end-stage renal d isease on chronic hemodialysis Sunday, and Sunday, diabetes mellitus, peripheral arterial disease and hypertension who was transferred to [facility] for CABG. Terrence quevedo initially presented to [facility] in [place] compl aining of shortness of breath. Underwent [...] 95 38 107/65 80 98 07/01 1924 36.0 91 25 127/60 99 Nasal [...] L Albuterol/Ipratropium (DUONEB) 3 ML RTQ4H PRN MN N NEB Ticagrelor (BRILINTA) 90 MG Q12HR [...] Lidocaine HCl (LIDOCAINE HCL/PF) 0.5 ML ASDIR MN N I-DERMAL (CKD) Mannitol (MANNITOL 25% 12.5GM/50ML) 12.5 GM ASDI R PRN IV Sodium Chloride (SODIUM CHLORIDE 0.9%) 2,000 ML ASDIR PRN IV Sodium Chloride (SODIUM CHLORIDE) 5 ML ASDIR PRN IV Sodium Chloride (SODIUM CHLORIDE) 10 ML ASDIR MN N IV Sodium Chloride (SODIUM CHLORIDE 0.9%) [...] Musculoskeletal: no CVA tenderness, no tendernes s Neuro/CHAINSTITCH SEWING MACHINE OPERATOR: alert, normal speech Skin: dry, intact Ulcer: [...] status post hemodialysis yesterday, 3 L removed. 22: Pt feels better. For HD today. will us e K2 [place]. I was then notified her RN that the pt has code blue in the radiology depertment. she is now alert and awake. will continue dialysis without any ch anges in the original order. 22: pt had code blue yesterday. Did not lo ose pulse. she thinks it was panic attack. had dialysis yesterday with net ne gative fo 3L. Feels better today. BP has been stable and So2 is 100%. will resume TTS schedule. Electrolyts and BMD are all well controlled. Consultants: cardiology, cardiovascular surgery, nephrology, wound care Electronically Signed by Stella Mojica MD on 1 09/02/21 at 1035 RPT #:[id number] END OF REPORT 2022-07-02 09:52:00-00:00 [facility]) INSULATION POWER UNIT TENDER Consultation Note REPORT#:[id number] REPORT STATUS: Signed DATE:07/02/22 TIME: 951 PATIENT: MESERET MOTTA UNIT #: [id number] ROOM/BED: [place] [address] : 56 AGE: 67 SEX: F ATTEND: Adonis Gaytan MD ADM AUTHOR: Tyra King * ALL edits or amendments must be made on the [employer]/computer document * History of Present Illness HPI HPI: 67 y/o female patient with a history of ESRD on hemodialysis, CHTN, DM and hypothyroidism was transferred from [facility] for evaluation for CABG. She complains of vaginal bleeding for the last 6 weeks which now is minimal spotting. She denies any SALESPERSON SHEET MUSIC history. Sh e did state that her [...] 144/74 07/02 0901 B/P Mean 99 07/02 0901 Pulse 92 07/02 0901 Resp 27 07/02 0901 O2 Delivery Nasal cannula 07/02 0754 O2 [...] x3 Abdomen: soft, no rebound, no tenderness SALESPERSON SHEET MUSIC: Atrophic exteral genitalia Speculum exam: Vagina: Atrophic, [...] due to atrophic endometrium and uterine fibroid. Hiddenite ed patient on US and lab findings. At this time she is having minimal vag inal bleeding. Oriented patient that she needs to fo llow up outpatient with a SALESPERSON SHEET MUSIC for work up for post- menopausal bleeding including; PAP smear and endometrial biopsy. Will sign-off case at this time. Please feel free to call if the patient needs to be re-evaluated by in-house INSULATION POWER UNIT TENDER at 1013 RPT #:[id number] END OF REPORT 2022-07-01 21:39:00-00:00 [facility] ([facility]) Clinical Note REPORT#:[id number] REPORT STATUS: Signed DATE:07/01/22 TIME: 2138 PATIENT: MESREET MOTTA UNIT #: [id number] ROOM/BED: [place] [address] : 56 AGE: 67 SEX: F ATTEND: Adonis Gaytan MD ADM AUTHOR: Kiki Brooks NP * ALL edits or amendments must be made on the el [employer]/computer document * Clinical Note Note: GALA HERNANDEZ [...] of c are with the critical care operations engineer. Electronically Signed by Kiki Brooks NP on 1 09/02/21 at 1933 RPT #:[id number] END OF REPORT 2022-07-01 16:26:00-00:00 [facility] ([facility]) Nephrology Progress Note REPORT#:[id number] REPORT STATUS: Signed DATE:07/01/22 TIME: 1626 PATIENT: MESERET MOTTA UNIT #: [id number] ROOM/BED: [place] [address] : 56 AGE: 67 SEX: F ATTEND: Adonis Gaytan MD ADM AUTHOR: Stella Mojica MD * ALL edits or amendments must be made on the [employer]/computer document * Subjective Chief complaint: Transferred for CABG HPI: Patient seen and evaluated, discussed with care team, 67-year-old female with history of end-stage renal d isease on chronic hemodialysis Sunday, and Sunday, diabetes mellitus, peripheral arterial disease and hypertension who was transferred to [facility] for CABG. Terrence quevedo initially presented to [facility] in [place] compl aining of shortness of breath. Underwent [...] L Albuterol/Ipratropium (DUONEB) 3 ML RTQ4H PRN MN N NEB Ticagrelor (BRILINTA) 90 MG Q12HR [...] PO Metoprolol Tartrate (LOPRESSOR) 12.5 MG Q12HR P O Pantoprazole (PROTONIX) 40 MG 0600,1800 PO Midodrine (PROAMATINE) 10 MG DIALYSIS-DOSE BEFOR E PO (CKD) Albumin Human (ALBUMINAR-25%) 12.5 GM ASDIR PRN IV Heparin Sodium (Porcine) (HEPARIN SODIUM) 3,000 UNIT ASDIR PRN DIALYSIS Lidocaine HCl (LIDOCAINE HCL/PF) 0.5 ML ASDIR MN N I-DERMAL (CKD) Mannitol (MANNITOL 25% 12.5GM/50ML) 12.5 GM ASDI R PRN IV Sodium Chloride (SODIUM CHLORIDE 0.9%) 2,000 ML ASDIR PRN IV Sodium Chloride (SODIUM CHLORIDE) 5 ML ASDIR PRN IV Sodium Chloride (SODIUM CHLORIDE) 10 ML ASDIR MN N IV Sodium Chloride (SODIUM CHLORIDE 0.9%) [...] Musculoskeletal: no CVA tenderness, no tendernes s Neuro/CHAINSTITCH SEWING MACHINE OPERATOR: alert, normal speech Skin: dry, intact Ulcer: [...] cardiovascular surgery, nephrology, wound care at 1632 RPT #:[id number] END OF REPORT 2022-07-01 12:37:00-00:00 [facility] ([facility]) Wound Care Progress Note REPORT#:[id number] REPORT STATUS: Signed DATE:07/01/22 TIME: 1237 PATIENT: MESERET MOTTA UNIT #: [id number] ROOM/BED: [place] [address] : 56 AGE: 67 SEX: F ATTEND: Adonis Gaytan MD ADM AUTHOR: Sybil Byers MD * ALL edits or amendments must be made on the [employer]/computer document * Subjective Chief complaint: Woundcare FU [...] L Albuterol/Ipratropium (DUONEB) 3 ML RTQ4H PRN MN N NEB Ticagrelor (BRILINTA) 90 MG Q12HR [...] Lidocaine HCl (LIDOCAINE HCL/PF) 0.5 ML ASDIR MN N I-DERMAL (CKD) Mannitol (MANNITOL 25% 12.5GM/50ML) 12.5 GM ASDI R PRN IV Sodium Chloride (SODIUM CHLORIDE 0.9%) 2,000 ML ASDIR PRN IV Sodium Chloride (SODIUM CHLORIDE) 5 ML ASDIR PRN IV Sodium Chloride (SODIUM CHLORIDE) 10 ML ASDIR MN N IV Sodium Chloride (SODIUM CHLORIDE 0.9%) [...] coming off. LLE warm[facility]. Ulcer: Type/cause: diabetic, arterial Location: foot (bilateral [...] (Auto) (14.0 - 32.0 %) 7.7 L Obion % (Auto) (4.8 - 9.0 %) 8.2 Eos % (Auto) (0.3 - 3.7 %) 2.8 Baso % (Auto) (0.0 - 2.0 %) 0.2 Neut # (Auto) (2.0 - 7.6 x10 3/uL) 7.99 H Lymph # (Auto) (1.0 - 3.8 x10 3/uL) 0.76 L Obion # (Auto) (0.1 - 0.8 x10 3/uL) [...] Sybil Byers MD on at 2327 RPT #:[id number] END OF REPORT 2022-07-01 12:19:00-00:00 [facility] ([facility]) Infectious Dis. Progress Note REPORT#:[id number] REPORT STATUS: Signed DATE:07/01/22 TIME: 1219 PATIENT: MESERET MOTTA UNIT #: [id number] ROOM/BED: [place] [address] : 56 AGE: 67 SEX: F ATTEND: Adonis Gaytan MD ADM AUTHOR: Kasey Mendez MD * ALL edits or amendments must be made on the [employer]/computer document * Subjective HPI: 67 yr old [...] O2 Flow FiO2 Mean Ox Delivery Rate 07/01 1027 [...] (Auto) (14.0 - 32.0 %) 7.7 L Obion % (Auto) (4.8 - 9.0 %) 8.2 Eos % (Auto) (0.3 - 3.7 %) 2.8 Baso % (Auto) (0.0 - 2.0 %) 0.2 Neut # (Auto) (2.0 - 7.6 x10 3/uL) 7.99 H Lymph # (Auto) (1.0 - 3.8 x10 3/uL) 0.76 L Obion # (Auto) (0.1 - 0.8 x10 3/uL) [...] URINE: Urine Culture - ORD Microbiology: 06/30 1255 URINE: Urine Culture - ORD 06/26 1900 BLOOD: Blood Culture - RES Laboratory Tests Test Result Date Time Chemistry BUN (7 - 18 mg/dL) 29 H 07/01 615 Creatinine (0.6 - 1.3 mg/dL) 4.7 H 07/01 615 Hematology WBC (4.5 - 11.0 x10 3/uL) 9.9 07/01 615 Microbiology Date/Time Procedure - Status Source Growth 06/30 1255 Urine Culture - ORD URINE 06/26 1900 [...] L Albuterol/Ipratropium (DUONEB) 3 ML RTQ4H PRN MN N NEB Ticagrelor (BRILINTA) 90 MG Q12HR [...] Lidocaine HCl (LIDOCAINE HCL/PF) 0.5 ML ASDIR MN N I-DERMAL (CKD) Mannitol (MANNITOL 25% 12.5GM/50ML) 12.5 GM ASDI R PRN IV Sodium Chloride (SODIUM CHLORIDE 0.9%) 2,000 ML ASDIR PRN IV Sodium Chloride (SODIUM CHLORIDE) 5 ML ASDIR PRN IV Sodium Chloride (SODIUM CHLORIDE) 10 ML ASDIR MN N IV Sodium Chloride (SODIUM CHLORIDE 0.9%) [...] n film evidence of osteomyelitis. Impression By: DanieCSLindsay - Jett Mosher M.D. Diagnosis, Assessment Plan Free Text [...] surgery, nephrology, wound care at 1729 RPT #:[id number] END OF REPORT 2022-07-01 11:51:00-00:00 [facility] Pharmacy Prog.Note-Vancomycin REPORT#:[id number] REPORT STATUS: Signed DATE:07/01/22 TIME: 1151 PATIENT: MESERET MOTTA UNIT #: [id number] ROOM/BED: [place] [address] : 56 AGE: 67 SEX: F ATTEND: Adonis Gaytan MD ADM AUTHOR: Sharmaine Vanessa [facility] * ALL edits or amendments must be made on the [employer]/computer document * Vancomycin Vancomycin Medication Therapy Goal: Pre-HD vanco goal 15-20mcg/mL Indication for treatment: SSTI Current therapy: Post-HD vancomycin 1000 mg IV once Weight: Actual weight (kg): 111.13 VS and I/O: Vital Signs Date Temp Pulse Resp B/P B/P Mean Pulse Ox FiO2 06/28-07/01 97.5-98.7 69-103 11- 104-146/63-88 77.9-102.0 95-100 21 72 hours ending at 0700 07/01 0700 06/30 1900 06/30 0700 06/29 1900 06/28 0700 1900 Intake 400 Total Output 3000 4000 Total Balance -3000 400 -4000 Intake, 400 Oral Number 2 1 Bowel Movements Number 2 2 Voids Output, 3000 4000 Hemodialys is 72 Hour I O Total 07/01 0700 06/30 0700 06/29 0700 Intake Total 400 Output Total 3000 4000 [...] hypertension, diabetes, hypothyroidism, who was transferred from [facility] on 08/23 for evaluation for CABG. Patient presented here 1 week ago with complaint s of shortness of breath and lower extremity edema. Pharmacy has been consulted to dose vancomycin for SSTI Consulting Provider: Kasey Mendez MD Indication: SSTI Pre-HD Vancomycin Level Goal: 15-20 mcg/ml Day of therapy: 2 of 07/01 Assessment and Plan: * WBC 9.9 [...] Renal function: * [facility] * Last HD session on 06/29, next [...] to follow and monitor at 1159 RPT #:[id number] END OF REPORT 2022-07-01 11:39:00-00:00 [facility] ([facility] Hospitalist Progress Note REPORT#:[id number] REPORT STATUS: Signed DATE:07/01/22 TIME: 1139 PATIENT: MESERET MOTTA UNIT #: [id number] ROOM/BED: [place] [address] : 56 AGE: 67 SEX: F ATTEND: Adonis Gaytan MD ADM AUTHOR: Adonis Gaytan MD * ALL edits or amendments must be made on the [employer]/computer document * Subjective Chief complaint: c/o vaginal [...] soft, no distention Extremities: edema, moves all Neuro/CHAINSTITCH SEWING MACHINE OPERATOR: alert, oriented X 3, normal speech, n [...] 07/04 2059 2035 Sodium Chloride 100 ML Hydrocodone Bitart/ 1 [...] 0859 0935 Midodrine 5 MG 0900,1300,1700 06/23 0900 AC 06/09 4 PO 07/23 0859 0935 Levothyroxine Sodium 150 MCG DAILY 0600 06/23 06 00 AC 07/01 PO 07/23 0559 0609 Buspirone HCl 5 MG BID 06/22 2100 AC 07/01 PO 07/22 2058 0936 Metoprolol Tartrate 12.5 MG Q12HR 06/22 2100 AC 07/01 PO 07/22 2058 0936 Pantoprazole 40 MG 0600,1800 06/22 1800 AC 07/01 PO 07/22 1758 0609 Midodrine 10 MG DIALYSIS-DOSE 06/22 1545 CKD BEFORE PO 07/22 1544 1856 Albumin Human 12.5 GM ASDIR PRN 06/22 1530 AC 1 08/28 IV 07/23 1529 1909 Heparin Sodium 3,000 UNIT ASDIR PRN 06/22 1530 AC 06/28 (Porcine) DIALYSIS 07/22 1529 1512 Lidocaine [...] 07/22 0759 0936 Atorvastatin Calcium 40 MG 06/21 AC PO 07/21 2058 214 Insulin Human Lispro 0 AC HS 06/21 2100 AC 06/09 3 SUBQ 07/21 2058 1818 Dextrose/Water 125 ML ASDIR PRN 06/21 1900 CKD IV 07/21 1859 Dextrose/Water 250 ML ASDIR PRN 06/21 1900 CKD IV 07/21 185 Glucagon 1 MG ASDIR PRN 06/21 190 AC IM 07/21 185 Melatonin 3 MG BEDTIME PRN PRN 06/21 1900 AC PO 07/21 185 0102 Acetaminophen 650 MG Q4H PRN PRN 06/21 1730 AC 06/27 PO 07/21 172 1301 Heparin Sodium 5,000 UNIT ASDIR PRN 06/21 173 A C 06/22 IV 07/21 172 1449 Nitroglycerin 0.4 MG Q5M PRN PRN 06/21 1730 AC SL 07/21 172 Ondansetron HCl 4 MG Q6H PRN PRN 06/21 1730 AC 1 08/31 IV 07/21 172 0433 Laboratory Tests: 07/01 07/01 07/01 06/30 [...] (Auto) (14.0 - 32.0 %) 7.7 L Obion % (Auto) (4.8 - 9.0 %) 8.2 Eos % (Auto) (0.3 - 3.7 %) 2.8 Baso % (Auto) (0.0 - 2.0 %) 0.2 Neut # (Auto) (2.0 - 7.6 x10 3/uL) 7.99 H Lymph # (Auto) (1.0 - 3.8 x10 3/uL) 0.76 L Obion # (Auto) (0.1 - 0.8 x10 3/uL) [...] had no vaginal bleeding for 15 years...ask estimating manager to see and check pelvic ultrasound. Severe PAD/toe ulcer: Status post POOL TABLE OPERATOR and atherec cheri with CSI followed by POOL TABLE OPERATOR with stable balloon on left anterior and [...] Patient is on a Sunday sched jaxon Manager Solution following Functional quadriplegia: Rehab consult as recommended [...] unas yn to VANC. pt c/o DUB. estimating manager to see and check pelvis ultrasound. Quality: Gen Med Crit Care VTE Prophylaxis VTE prophylaxis initiated: yes Current Medications Current medication review: I attest that the foregoing medication list in t medical record is true, accurate, and complete to the best of my knowled ge. 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, 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 X 3, no motor deficit [...] MD on 06/09 10/28 at 1105 RPT #:[id number] END OF REPORT 2022-07-01 10:41:00-00:00 [facility] Cardiology Progress Note REPORT#:[id number] REPORT STATUS: Signed DATE:07/01/22 TIME: 1041 PATIENT: MESERET MOTTA UNIT #: [id number] ROOM/BED: [place] [address] : 56 AGE: 67 SEX: F ATTEND: Adonis Gaytan MD ADM AUTHOR: Brian Alfred MD * ALL edits or amendments must be made on the [employer]/computer document * Subjective Chief complaint: feeling better [...] 9.52 Weight (kg): 111.13 Medications: Medication(s) Ordered: fs Category Unknown Sig/Enedina Start time Last Medication Dose Route Stop Time Status Admin Melatonin 3 MG BEDTIME PRN PRN 06/21 1900 AC PO 07/21 1859 0102 Anti-Infective Agents Sig/Enedina Start time Last Medication Dose Route Stop Time Status Admin Vancomycin HCl 1,750 MG ONCE@1500 06/30 1500 DC 06/30 Sodium Chloride 500 ML IV 06/30 185 1833 Miscellaneous 1 EACH ASDIR 06/30 1300 CKD Information IV 07/30 1259 Vancomycin HCl 1,000 MG ONCE ONE 06/30 1300 CAN Sodium Chloride 250 ML IV 06/30 1359 Ampicillin Sodium/ 3 GM 2100 06/27 2100 DC 06/09 2 Sulbactam Sodium IV 07/04 Sodium Chloride 100 ML Autonomic Drugs Sig/Enedina [...] TuThSa@2100 06/24 2100 AC 06/29 SUBQ 07/24 2058 203 Heparin Sodium 3,000 UNIT ASDIR PRN 06/22 1530 AC 06/28 (Porcine) DIALYSIS 07/22 1529 1512 Heparin Sodium 5,000 UNIT ASDIR PRN 06/21 1730 AC 06/22 IV 01/13 1729 1449 Cardiovascular Drugs Sig/Enedina Start time Last Medication Dose Route Stop Time Status Admin Metoprolol Tartrate 12.5 MG Q12HR 06/22 2100 AC 07/01 PO 07/22 205 0936 Lidocaine HCl 0.5 ML ASDIR PRN 06/22 1530 CKD I-DERMAL 07/23 1529 Atorvastatin Calcium 40 MG 2100 06/21 2100 AC 1 08/31 PO 07/21 205 2147 Nitroglycerin 0.4 MG Q5M PRN PRN 06/21 1730 AC SL 07/21 1729 Central Nervous System Agents Sig/Enedina Start time Last Medication Dose Route Stop Time Status Admin Hydrocodone Bitart/ 1 TAB Q6H PRN PRN 06/27 16 45 AC 06/30 Acetaminophen PO 07/02 1644 0722 Hydrocodone Bitart/ 1 TAB Q6H PRN PRN 06/27 16 45 AC 07/01 Acetaminophen PO 07/02 1644 0229 Buspirone HCl 5 MG BID 06/22 2100 AC 07/01 PO 07/22 2058 0936 Aspirin 81 MG C BK 06/22 0800 AC 07/01 PO 07/22 075 0936 Acetaminophen 650 MG Q4H PRN PRN [...] MEALS 06/26 0800 AC 07/01 PO 07/26 075 0935 Mannitol 12.5 GM ASDIR PRN 06/22 [...] AC 06/09 3 SUBQ 07/21 2058 181 Glucagon 1 MG ASDIR PRN 06/21 1900 [...] edema, abnormal pedal pulse Musculoskeletal: normal inspection Neuro/CHAINSTITCH SEWING MACHINE OPERATOR: alert, oriented X 3, normal speech Skin: [...] (Auto) (14.0 - 32.0 %) 7.7 L Obion % (Auto) (4.8 - 9.0 %) 8.2 Eos % (Auto) (0.3 - 3.7 %) 2.8 Baso % (Auto) (0.0 - 2.0 %) 0.2 Neut # (Auto) (2.0 - 7.6 x10 3/uL) 7.99 H Lymph # (Auto) (1.0 - 3.8 x10 3/uL) 0.76 L Obion # (Auto) (0.1 - 0.8 x10 3/uL) [...] x10 3/uL) 0.0 0 Laboratory Tests 07/01 06 Toxicology Random Vancomycin (mcg/mL) 22.4 Laboratory Tests 07/01 615 Chemistry Magnesium (1.80 - 2.40 mg/dL) 2.20 Results: labs reviewed, vital signs reviewed, vi verónica signs stable Diagnosis, Assessment Plan Consultants: cardiology, cardiovascular surgery, nephrology, wound care Free Text DxA P Notes Free Text DxA P Notes: 67 YO female with PMHx of HTN, DM, CHF, ESRD on HD who initially presented at [facility] with SOB and fatigue. Sh regan was [...] ulcers/severe PAD 06/26/21: s/p peripheral angiogram and POOL TABLE OPERATOR to th e anterior tibial artery [employer] of right anterior/posterior tibial artery, n eed [...] MD on 1 09/02/21 at 0925 RPT #:[id number] END OF REPORT 2022-07-01 07:23:00-00:00 [facility] ([facility]) Rehab Progress Note REPORT#:[id number] REPORT STATUS: Signed DATE:07/01/22 TIME: 722 PATIENT: MESERET MOTTA UNIT #: [id number] ROOM/BED: [place] [address] : 56 AGE: 67 SEX: F ATTEND: Adonis Gaytan MD ADM AUTHOR: Shelton Vega * ALL edits or amendments must be made on the [employer]/computer document * Subjective Chief complaint: rehab follow-up [...] L Albuterol/Ipratropium (DUONEB) 3 ML RTQ4H PRN MN N NEB Ticagrelor (BRILINTA) 90 MG Q12HR [...] Lidocaine HCl (LIDOCAINE HCL/PF) 0.5 ML ASDIR MN N I-DERMAL (CKD) Mannitol (MANNITOL 25% 12.5GM/50ML) 12.5 GM ASDI R PRN IV Sodium Chloride (SODIUM CHLORIDE 0.9%) 2,000 ML ASDIR PRN IV Sodium Chloride (SODIUM CHLORIDE) 5 ML ASDIR PRN IV Sodium Chloride (SODIUM CHLORIDE) 10 ML ASDIR MN N IV Sodium Chloride (SODIUM CHLORIDE 0.9%) [...] of Care: Yes PT charges: [place] [id number] FT/Therap. Activity 85539 Gait Cmt: Pt agreable to gait training, [...] BUE +3/5 BLE HF -3/5 KE +3/5 Neuro/CHAINSTITCH SEWING MACHINE OPERATOR: sensory deficit ( decrease BLE), alert, oriented [...] (Auto) (14.0 - 32.0 %) 3.1 L Obion % (Auto) (4.8 - 9.0 %) 4.9 Eos % (Auto) (0.3 - 3.7 %) 0.5 Baso % (Auto) (0.0 - 2.0 %) 0.1 Neut # (Auto) (2.0 - 7.6 x10 3/uL) 10.86 H Lymph # (Auto) (1.0 - 3.8 x10 3/uL) 0.37 L Obion # (Auto) (0.1 - 0.8 x10 3/uL) [...] -End-stage renal disease on hemodialysis -Severe PVD-(s/p POOL TABLE OPERATOR and ath erectomy with CSI followed by POOL TABLE OPERATOR with TAVR balloon on left anterior and [...] decubitus precautions Monitor labs Wound care on residential case manager labs Advance therapies as tolerated. Patient particip [...] by Shelton Vega on 1 09/03/21 at 0456 RPT #:[id number] END OF REPORT 2022-06-30 16:40:00-00:00 [id number] [place] [address] PATIENT NAME: MESERET MOTTA ADMIT DATE: 06/22 ACCOUNT NO: [id number] ROOM NO: [facility] AGE: 67 REPORT TYPE: CONSULTATION REPORT SEX: [...] two and a half years, admitted to [facility] on 06/22/2022 from [facility] for evaluation of coronary artery bypass surgery. The patient presented to the [facility] with shortness of breath and fatigue. She was diagnosed with non-S T elevation NE, CHF exacerbation. She had a left heart catheterizati on, which showed severe multivessel coronary artery disease. She was tra nsferred to [facility]. CT surgeon was consulted for possible CABG. Her case was presented at a conference and recommended attempt to PCI. She was found to have severe peripheral vascular disease and has multiple wou nds, especially left foot multiple infected wounds. Lo wer extremity artery she underwent status post POOL TABLE OPERATOR, thrombectomy with CSI follow ed by POOL TABLE OPERATOR and have her balloon in the left [...] SOCIAL HISTORY: Former smoker, no alcohol, no dr ug abuse. PATIENT NAME: MESERET MOTTA [id number] MEDICATIONS: Antibiotics pizarro, the patie nt is [...] Dianne syn. 2. Dysuria, significant pyuria on admission seco ndary to renal insufficiency. Continues to have dysuria. Obtain urine cultures and also obtain 3-phase bone scan of the left foot to evaluate for osteomyeli tis. 3. Leukocytosis, likely leukemoid reaction to pu lmonary edema. Thank you very much. We will follow. Dictated By: Kasey Mendez MD Date Dictated: 06/30/2022 16:40:31 Date Transcribed: 06/30/2022 19:18:11 /[facility] Receipt ID: [id number] Authenticated by Kasey Mendez MD On 022 08:38:52 AM PATIENT NAME: MESERET MOTTA [id number] at 0839 PATIENT NAME: MESERET MOTTA [id number] 4947-12-23 14:22:00-00:00 [facility] Pharmacy Prog.Note-Vancomycin REPORT#:[id number] REPORT STATUS: Signed DATE:06/30/22 TIME: 1422 PATIENT: MESERET MOTTA UNIT #: [id number] ROOM/BED: [facility]-1 : 56 AGE: 67 SEX: F ATTEND: Adonis Gaytan MD ADM AUTHOR: Dania Márquez [facility] * ALL edits or amendments must be made on the [employer] document * Vancomycin Vancomycin Medication Therapy Goal: Pre-HD vanco goal 15-20mcg/mL Indication for treatment: SSTI Current therapy: Vancomycin pharmacy to dose Day of therapy: 1 Weight: Actual weight (kg): 111.1 VS and I/O: Vital Signs Date Temp Pulse Resp B/P B/P Mean Pulse Ox FiO2 06/27-06/30 97.3-98.7 69-108 - 104-177/63-99 0.0-125.4 95-100 21 72 hours ending at 0700 06/30 0700 06/29 1900 06/29 0700 06/28 1900 06/27 07 1900 Intake 400 1620.00 Total Output 3000 [...] hemodialysis, hyp ertension, diabetes, hypothyroidism transferred from [facility] on 06/22 for evaluation for CABG. Patient [...] for CABG. Today on 06/30, Dr Mendez dc'lynn Unasysn and consulted pharmacy to dose van [...] Dr Mendez for this consult! * at 1446 RPT #:[id number] END OF REPORT 2022-06-30 12:47:00-00:00 [facility]) Pulmonology Progress Note REPORT#:[id number] REPORT STATUS: Signed DATE:06/30/22 TIME: 1247 PATIENT: MESERET MOTTA UNIT #: [id number] ROOM/BED: [place] [address] : 56 AGE: 67 SEX: F ATTEND: Adonis Gaytan MD ADM AUTHOR: Chris Estevez MD * ALL edits or amendments must be made on the [employer] document * Subjective Chief complaint: SOB Comments: doing well sob is better remains on oxygen ROS: no n/v/cp Objective General VS/I O: Last Documented: Result Date Time Pulse Ox 100 06/30 713 B/P 133/67 06/30 713 B/P Mean 88.8 06/30 713 O2 Delivery Nasal cannula 06/30 713 O2 Flow Rate 2 06/30 713 Temp 97.7 06/30 713 Pulse 99 12/23 0713 Resp 18 06/30 0713 FiO2 21 06/28 2342 24 hour I O ending at 0700: 06/29 1900 06/30 0700 Intake Total Output Total 3000 Balance -3000 [...] n, no guarding Extremities: edema, no clubbing Neuro/CHAINSTITCH SEWING MACHINE OPERATOR: alert, oriented X 3, no motor deficit s Skin: dry, normal color Ulcer: Type/cause: diabetic, arterial Location: foot (bilateral toes) Psychiatry: normal affect, no hallucinations Results Findings/Data: Laboratory Tests 06/30/22724: [Embedded Image Not Available] Laboratory Tests 06/29 06/29 06/30 1531957 0725 Chemistry Sodium (134 - 147 mEq/L) [...] - 10.5 mg/dL) 9.6 Laboratory Tests 06/30 725 Hematology WBC (4.5 - 11.0 x10 3/uL) [...] (Auto) (14.0 - 32.0 %) 3.1 L Obion % (Auto) (4.8 - 9.0 %) 4.9 Eos % (Auto) (0.3 - 3.7 %) 0.5 Baso % (Auto) (0.0 - 2.0 %) 0.1 Neut # (Auto) (2.0 - 7.6 x10 3/uL) 10.86 H Lymph # (Auto) (1.0 - 3.8 x10 3/uL) 0.37 L Obion # (Auto) (0.1 - 0.8 x10 3/uL) [...] MD on 06/09 09/27 at 1249 RPT #:[id number] END OF REPORT 2022-06-30 12:31:00-00:00 [facility] ([facility]) Wound Care Progress Note REPORT#:[id number] REPORT STATUS: Signed DATE:06/30/22 TIME: 1231 PATIENT: MESERET MOTTA UNIT #: [id number] ROOM/BED: [place] [address] : 56 AGE: 67 SEX: F ATTEND: Adonis Gaytan MD ADM AUTHOR: Sybil Byers MD * ALL edits or amendments must be made on the [employer] document * Subjective Chief complaint: Woundcare FU for foot, hand leg ulcers; less dariana n Objective General Medications: Active Meds + DC'd Last 24 Hrs Lactulose (LACTULOSE) 20 GM DAILY PRN PRN PO Docusate Sodium (COLACE) 100 MG BID PO Sodium Chloride (OCEAN) 1 SPRAY Q2H PRN PRN NASA L Albuterol/Ipratropium (DUONEB) 3 ML RTQ4H PRN MN N NEB Ticagrelor (BRILINTA) 90 MG Q12HR [...] Lidocaine HCl (LIDOCAINE HCL/PF) 0.5 ML ASDIR MN N I-DERMAL (CKD) Mannitol (MANNITOL 25% 12.5GM/50ML) 12.5 GM ASDI R PRN IV Sodium Chloride (SODIUM CHLORIDE 0.9%) 2,000 ML ASDIR PRN IV Sodium Chloride (SODIUM CHLORIDE) 5 ML ASDIR PRN IV Sodium Chloride (SODIUM CHLORIDE) 10 ML ASDIR MN N IV Sodium Chloride (SODIUM CHLORIDE 0.9%) [...] off. LLE warm, RLE cold to ollie . Ulcer: Type/cause: diabetic, arterial Location: foot (bilateral toes) Results Findings/Data: Laboratory Tests: 06/30 06/29 06/29 0761 1958 1536 Chemistry Sodium (134 - 147 [...] (Auto) (14.0 - 32.0 %) 3.1 L Obion % (Auto) (4.8 - 9.0 %) 4.9 Eos % (Auto) (0.3 - 3.7 %) 0.5 Baso % (Auto) (0.0 - 2.0 %) 0.1 Neut # (Auto) (2.0 - 7.6 x10 3/uL) 10.86 H Lymph # (Auto) (1.0 - 3.8 x10 3/uL) 0.37 L Obion # (Auto) (0.1 - 0.8 x10 3/uL) [...] Sybil Byers MD on at 1233 RPT #:[id number] END OF REPORT 2022-06-30 12:31:00-00:00 [facility] ([facility]) Clinical Note REPORT#:[id number] REPORT STATUS: Signed DATE:06/30/22 TIME: 1231 PATIENT: MESERET MOTTA UNIT #: [id number] ROOM/BED: [place] [address] : 56 AGE: 67 SEX: F ATTEND: Adonis Gaytan MD ADM AUTHOR: Kasey Mendez MD * ALL edits or amendments must be made on the [employer] document * Clinical Note Note: pt seen,examined,dictation to follow at 1721 RPT #:[id number] END OF REPORT 2022-06-30 10:13:00-00:00 [facility] Cardiology Progress Note REPORT#:[id number] REPORT STATUS: Signed DATE:06/30/22 TIME: 1013 PATIENT: MESERET MOTTA UNIT #: [id number] ROOM/BED: [place] [address] : 56 AGE: 67 SEX: F ATTEND: Adonis Gaytan MD ADM AUTHOR: Sabrina Tirado DRYWALL MECHANIC * ALL edits or amendments must be made on the [employer] document * Sabrina Tirado 06/30/22 1013: Subjective [...] 2100 06/21 2100 AC PO 07/21 205 203 Insulin Human Lispro 0 AC HS [...] low FiO2 Mean Ox Delivery Rate 06/30 713 36.5 99 18 133/67 88.8 100 Nasal 2 cannula 06/30 438 36.6 97 16 113/69 83.5 98 Nasal cannula 06/306 36.8 103 16 120/71 87.2 100 Nasal [...] edema, abnormal pedal pulse Musculoskeletal: normal inspection Neuro/CHAINSTITCH SEWING MACHINE OPERATOR: alert, oriented X 3, normal speech Skin: scabs lower extremities Ulcer: Type/cause: diabetic, arterial Location: foot (bilateral toes) Psychiatry: normal affect, normal mood Diagnosis, Assessment Plan Consultants: cardiology, cardiovascular surgery, nephrology, wound care Free Text DxA P Notes Free Text DxA P Notes: 67 YO female with PMHx of HTN, DM, CHF, ESRD on HD who initially presented at [facility] with SOB and fatigue. Sh regan was [...] ulcers/severe PAD 06/26/21: s/p peripheral angiogram and POOL TABLE OPERATOR to e anterior tibial artery [employer] CH[employer] of right anterior/posterior tibial artery, n eed staged intervention on a later date PT/OT- Rehab eval ongoing Herson Tang 06/30/22 1632: Attestations Physician Attestation Agree w/findings plan: I have seen and examined the pt, I Agree with [facility] findings and plan as documented by Sabrina Tirado. Continue aspirin and Brilinta. Needs physical th erapy and possible inpatient rehab. She will need staged intervention of the LAD as outpatient and in the right anterior tibial artery if wound does not h eal in the right foot. Electronically Signed by Sabrina Tirado DRYWALL MECHANIC on 1 08/31/21 at 1019 Electronically Signed by Herson Tang MD on at 1633 RPT #:[id number] END OF REPORT 2022-06-30 09:49:00-00:00 [facility] ([facility]) Hospitalist Progress Note REPORT#:[id number] REPORT STATUS: Signed DATE:06/30/22 TIME: 948 PATIENT: MESERET MOTTA UNIT #: [id number] ROOM/BED: [place] [address] : 56 AGE: 67 SEX: F ATTEND: Adonis Gaytan MD ADM AUTHOR: Adonis Gaytan MD * ALL edits or amendments must be made on the [employer]/computer document * Subjective Chief complaint: no cp. [...] soft, no distention Extremities: edema, moves all Neuro/CHAINSTITCH SEWING MACHINE OPERATOR: alert, oriented X 3, normal speech, n [...] 06/24 2 100 AC 06/29 SUBQ 07/24 2058 203 Calcitriol 0.5 MCG DAILY 12/16 0900 AC 06/29 PO 07/23 0859 0823 [...] 40 MG 0600,1800 06/22 1800 AC 06/09 3 PO 07/22 175 0656 Midodrine 10 MG DIALYSIS-DOSE 06/22 1545 [...] 07/22 0759 0824 Atorvastatin Calcium 40 MG 06/21 AC PO 07/21 Insulin Human Lispro 0 [...] Q4H PRN PRN 06/21 173 AC 1 08/28 PO 07/21 1729 1301 Heparin Sodium 5,000 UNIT ASDIR PRN 06/21 1730 A C 06/22 IV 07/21 1729 1449 Nitroglycerin 0.4 MG Q5M PRN PRN 06/21 173 AC SL 07/21 172 Ondansetron HCl 4 MG Q6H PRN PRN 06/21 173 AC 1 08/31 IV 07/21 1729 0433 Laboratory Tests: 06/30 [...] (Auto) (14.0 - 32.0 %) 3.1 L Obion % (Auto) (4.8 - 9.0 %) 4.9 Eos % (Auto) (0.3 - 3.7 %) 0.5 Baso % (Auto) (0.0 - 2.0 %) 0.1 Neut # (Auto) (2.0 - 7.6 x10 3/uL) 10.86 H Lymph # (Auto) (1.0 - 3.8 x10 3/uL) 0.37 L Obion # (Auto) (0.1 - 0.8 x10 3/uL) [...] as outpatient Severe PAD/toe ulcer: Status post POOL TABLE OPERATOR and atherec cheri with CSI followed by POOL TABLE OPERATOR with stable balloon on left anterior and [...] 06/30- WBC increasing on unasyn. consult ID. nee d vanc? End-stage renal disease on hemodialysis Patient is on a Sunday sched jaxon Manager Solution following Functional quadriplegia: Rehab consult as recommended [...] Gaytan MD on 06/09 09/27 at 0951 RPT #:[id number] END OF REPORT 2022-06-30 08:05:00-00:00 [facility] ([facility]) Nephrology Progress Note REPORT#:[id number] REPORT STATUS: Signed DATE:06/30/22 TIME: 804 PATIENT: MESERET MOTTA UNIT #: [id number] ROOM/BED: 4421-1 : 56 AGE: 67 SEX: F ATTEND: Adonis Gaytan MD ADM AUTHOR: Jennifer Shelton MD * ALL edits or amendments must be made on the [employer] document * Subjective Chief complaint: Transferred for CABG HPI: Patient seen and evaluated, discussed with care team, 67-year-old female with history of end-stage renal d isease on chronic hemodialysis Sunday, and Sunday, diabetes mellitus, peripheral arterial disease and hypertension who was transferred to [facility] for CABG. Patiregan nt initially presented to [facility] in [place] compl aining of shortness of breath. Underwent [...] L Albuterol/Ipratropium (DUONEB) 3 ML RTQ4H PRN MN N NEB Ticagrelor (BRILINTA) 90 MG Q12HR [...] Lidocaine HCl (LIDOCAINE HCL/PF) 0.5 ML ASDIR MN N I-DERMAL (CKD) Mannitol (MANNITOL 25% 12.5GM/50ML) 12.5 GM ASDI R PRN IV Sodium Chloride (SODIUM CHLORIDE 0.9%) 2,000 ML ASDIR PRN IV Sodium Chloride (SODIUM CHLORIDE) 5 ML ASDIR PRN IV Sodium Chloride (SODIUM CHLORIDE) 10 ML ASDIR MN N IV Sodium Chloride (SODIUM CHLORIDE 0.9%) [...] Musculoskeletal: no CVA tenderness, no tendernes s Neuro/CHAINSTITCH SEWING MACHINE OPERATOR: alert, normal speech Skin: dry, intact Ulcer: Type/cause: diabetic, arterial Location: foot (bilateral toes) Results Findings/Data: Laboratory Tests 06/30 06/29 06/29 06/29 07 1958 1536 1124 Chemistry Sodium (134 - [...] (Auto) (14.0 - 32.0 %) 3.1 L Obion % (Auto) (4.8 - 9.0 %) 4.9 Eos % (Auto) (0.3 - 3.7 %) 0.5 Baso % (Auto) (0.0 - 2.0 %) 0.1 Neut # (Auto) (2.0 - 7.6 x10 3/uL) 10.86 H Lymph # (Auto) (1.0 - 3.8 x10 3/uL) 0.37 L Obion # (Auto) (0.1 - 0.8 x10 3/uL) [...] 4 L if tolerated. 06/30/2022 laboratory this m orning showed sodium 138, potassium 4.2, CO2 24, BUN 22, creatinine 4.1, hemoglobin 9.2, plat elet 195, white blood count 12, status post hemodialysis yesterday, 3 L removed. Consultants: cardiology, cardiovascular surgery, nephrology, wound care Electronically Signed by Jennifer Shelton MD on at 0929 RPT #:[id number] END OF REPORT 2022-06-30 06:24:00-00:00 [facility] ([facility]) Rehab Progress Note REPORT#:[id number] REPORT STATUS: Signed DATE:06/30/22 TIME: 06 PATIENT: MESERET MOTTA UNIT #: [id number] ROOM/BED: [place] [address] : 56 AGE: 67 SEX: F ATTEND: Adonis Gaytan MD ADM AUTHOR: Shelton Vega * ALL edits or amendments must be made on the [employer] document * Subjective Chief complaint: rehab follow-up [...] L Albuterol/Ipratropium (DUONEB) 3 ML RTQ4H PRN MN N NEB Ticagrelor (BRILINTA) 90 MG Q12HR [...] Sodium Chloride (SODIUM CHLORIDE) 10 ML ASDIR MN N IV Sodium Chloride (SODIUM CHLORIDE 0.9%) [...] BUE +3/5 BLE HF -3/5 KE +3/5 Neuro/CHAINSTITCH SEWING MACHINE OPERATOR: sensory deficit ( decrease BLE), alert, oriented X 3, CNII-XII intact, normal speech Genitourinary: Results Findings/Data: Laboratory Tests 06/29 06/29 06/29 06/29 06/29 1958 1536 1124 0756 0600 Chemistry Sodium (134 [...] H Magnesium (1.80 - 2.40 mg/dL) 2.32 06/28 06/28 06/28 06/28 06/28 1939 1847 [...] %) 3.8 L 2.7 L 6.4 L Obion % (Auto) (4.8 - 9.0 %) 7.3 4.9 8.8 Eos % (Auto) (0.3 - 3.7 %) 2.2 1.4 1.5 Baso % (Auto) (0.0 - 2.0 %) 0.1 0.1 0.1 Neut # (Auto) (2.0 - 7.6 x10 3/uL) 8.61 H 9.74 H 7.78 H Lymph # (Auto) (1.0 - 3.8 x10 3/uL) 0.38 L 0.29 L 0.60 L Obion # (Auto) (0.1 - 0.8 x10 3/uL) [...] -End-stage renal disease on hemodialysis -Severe PVD-(s/p POOL TABLE OPERATOR and ath erectomy with CSI followed by POOL TABLE OPERATOR with TAVR balloon on left anterior and [...] decubitus precautions Monitor labs Wound care on residential case manager labs Advance therapies as tolerated. Patient particip [...] nephrology, wound care Rehab attestation: . at 2206 RPT #:[id number] END OF REPORT 2022-06-29 22:26:00-00:00 [facility] Rehab Progress Note REPORT#:[id number] REPORT STATUS: Signed DATE:06/29/22 TIME: 2225 PATIENT: MESERET MOTTA UNIT #: [id number] ROOM/BED: 4421[address]1 : 56 AGE: 67 SEX: F ATTEND: Skye Johnson ADM AUTHOR: Lisa Vega NP * ALL edits or amendments must be made on the [employer] document * Subjective Chief complaint: rehab wcdeae-un-Cv seen around 1030am Pt feeling tired today, [...] L Albuterol/Ipratropium (DUONEB) 3 ML RTQ4H PRN MN N NEB Ticagrelor (BRILINTA) 90 MG Q12HR [...] Lidocaine HCl (LIDOCAINE HCL/PF) 0.5 ML ASDIR MN N I-DERMAL (CKD) Mannitol (MANNITOL 25% 12.5GM/50ML) 12.5 GM ASDI R PRN IV Sodium Chloride (SODIUM CHLORIDE 0.9%) 2,000 ML ASDIR PRN IV Sodium Chloride (SODIUM CHLORIDE) 5 ML ASDIR PRN IV Sodium Chloride (SODIUM CHLORIDE) 10 ML ASDIR MN N IV Sodium Chloride (SODIUM CHLORIDE 0.9%) [...] BUE +3/5 BLE HF -3/5 KE +3/5 Neuro/CHAINSTITCH SEWING MACHINE OPERATOR: sensory deficit ( decrease BLE), alert, oriented [...] (Auto) (14.0 - 32.0 %) 3.8 L Obion % (Auto) (4.8 - 9.0 %) 7.3 Eos % (Auto) (0.3 - 3.7 %) 2.2 Baso % (Auto) (0.0 - 2.0 %) 0.1 Neut # (Auto) (2.0 - 7.6 x10 3/uL) 8.61 H Lymph # (Auto) (1.0 - 3.8 x10 3/uL) 0.38 L Obion # (Auto) (0.1 - 0.8 x10 3/uL) [...] -End-stage renal disease on hemodialysis -Severe PVD-(s/p POOL TABLE OPERATOR and ath erectomy with CSI followed by POOL TABLE OPERATOR with TAVR balloon on left anterior and [...] from a comprehensive rehab prog mitul in [facility] addressing her impaired functional mobility, gait, balance [...] disc ussed with patient. at 2231 RPT #:[id number] END OF REPORT 2022-06-29 16:23:00-00:00 [facility] Pulmonology Progress Note REPORT#:[id number] REPORT STATUS: Signed DATE:06/29/22 TIME: 1622 PATIENT: MESERET MOTTA UNIT #: [id number] ROOM/BED: [place] [address] : 56 AGE: 67 SEX: F ATTEND: Skye Johnson ADM AUTHOR: Chris Estevez MD * ALL edits or amendments must be made on the [employer] document * Subjective Chief complaint: SOB Comments: [...] n, no guarding Extremities: edema, no clubbing Neuro/CHAINSTITCH SEWING MACHINE OPERATOR: alert, oriented X 3, no motor deficit [...] (Auto) (14.0 - 32.0 %) 3.8 L Obion % (Auto) (4.8 - 9.0 %) 7.3 Eos % (Auto) (0.3 - 3.7 %) 2.2 Baso % (Auto) (0.0 - 2.0 %) 0.1 Neut # (Auto) (2.0 - 7.6 x10 3/uL) 8.61 H Lymph # (Auto) (1.0 - 3.8 x10 3/uL) 0.38 L Obion # (Auto) (0.1 - 0.8 x10 3/uL) [...] MD on 06/09 08/30 at 1624 RPT #:[id number] END OF REPORT 2022-06-29 15:26:00-00:00 [facility] ([facility]) Wound Care Progress Note REPORT#:[id number] REPORT STATUS: Signed DATE:06/29/22 TIME: 1525 PATIENT: MESERET MOTTA UNIT #: [id number] ROOM/BED: [place] [address] : 56 AGE: 67 SEX: F ATTEND: Skye Johnson ADM AUTHOR: Sybil Byers MD * ALL edits or amendments must be made on the [employer] document * Subjective Chief complaint: Woundcare FU for foot, hand leg ulcers; no extre mity pain. Objective General Medications: Active Meds + DC'd Last 24 Hrs Sodium Chloride (OCEAN) 1 SPRAY Q2H PRN PRN [employer] L Albuterol/Ipratropium (DUONEB) 3 ML RTQ4H PRN MN N NEB Ticagrelor (BRILINTA) 90 MG Q12HR [...] Lidocaine HCl (LIDOCAINE HCL/PF) 0.5 ML ASDIR MN N I-DERMAL (CKD) Mannitol (MANNITOL 25% 12.5GM/50ML) 12.5 GM ASDI R PRN IV Sodium Chloride (SODIUM CHLORIDE 0.9%) 2,000 ML ASDIR PRN IV Sodium Chloride (SODIUM CHLORIDE) 5 ML ASDIR PRN IV Sodium Chloride (SODIUM CHLORIDE) 10 ML ASDIR MN N IV Sodium Chloride (SODIUM CHLORIDE 0.9%) [...] (Auto) (14.0 - 32.0 %) 3.8 L Obion % (Auto) (4.8 - 9.0 %) 7.3 Eos % (Auto) (0.3 - 3.7 %) 2.2 Baso % (Auto) (0.0 - 2.0 %) 0.1 Neut # (Auto) (2.0 - 7.6 x10 3/uL) 8.61 H Lymph # (Auto) (1.0 - 3.8 x10 3/uL) 0.38 L Obion # (Auto) (0.1 - 0.8 x10 3/uL) [...] Sybil Byers MD on at 2339 RPT #:[id number] END OF REPORT 2022-06-29 08:51:00-00:00 [facility] ([facility]) Cardiology Progress Note REPORT#:[id number] REPORT STATUS: Signed DATE:06/29/22 TIME: 08 PATIENT: MESERET MOTTA UNIT #: [id number] ROOM/BED: [facility] : 56 AGE: 67 SEX: F ATTEND: Adonis Gaytan MD ADM AUTHOR: Sabrina Tirado NP * ALL edits or amendments must be made on the [employer] document * Subjective Chief complaint: feeling better [...] 06/27 2100 AC 06/28 Sulbactam Sodium IV 07/04 2059 2113 Sodium Chloride 100 ML Hydrocodone [...] 2 100 AC 06/27 SUBQ 07/24 2058 2143 Mupirocin 1 APPLIC BID 06/23 1800 DC 06/28 TOPICAL 06/28 175 0904 Calcitriol 0.5 MCG DAILY 06/23 09 AC 06/29 PO 07/23 0859 0823 Midodrine 5 MG 0900,1300,1700 06/23 09 AC 06/09 2 PO 07/23 0859 1154 Levothyroxine Sodium 150 MCG DAILY 0600 06/23 06 00 AC 06/29 PO 07/23 0559 0559 Buspirone HCl 5 MG BID 06/22 2100 AC 06/29 PO 07/22 2058 0824 Metoprolol Tartrate 12.5 MG Q12HR 06/22 2100 AC 06/29 PO 07/22 2058 0824 Pantoprazole 40 MG 0600,1800 06/22 1800 AC 06/29 PO 07/22 1758 0559 Midodrine 10 MG DIALYSIS-DOSE 06/22 1545 [...] 2100 06/21 2100 AC PO 07/21 2058 2113 Insulin Human Lispro 0 AC HS 06/21 2100 AC 06/29 SUBQ 07/21 2058 0823 Dextrose/Water 125 ML ASDIR PRN 06/21 1900 CKD IV 07/21 1859 Dextrose/Water 250 ML ASDIR PRN 06/21 1900 CKD IV 07/21 1859 Glucagon 1 MG ASDIR PRN 06/21 190 AC IM 07/21 185 Melatonin 3 MG BEDTIME PRN PRN 06/21 190 AC PO 07/21 185 0102 Acetaminophen 650 MG Q4H PRN PRN 06/21 173 AC 1 08/28 PO 07/21 1729 1301 Heparin Sodium 5,000 UNIT ASDIR PRN 06/21 1730 A C 06/22 IV 07/21 1729 1449 Nitroglycerin 0.4 MG Q5M PRN PRN 06/21 173 AC SL 07/21 1729 Ondansetron HCl 4 MG Q6H PRN PRN 06/21 173 AC 1 08/29 IV 07/21 1729 2118 [...] 06/28 2342 97 Room air 21 06/28 195 36.8 92 11 146/80 102.0 97 06/28 [...] edema, abnormal pedal pulse Musculoskeletal: normal inspection Neuro/CHAINSTITCH SEWING MACHINE OPERATOR: alert, oriented X 3, normal speech Skin: scabs lower extremities Ulcer: Type/cause: diabetic, arterial Location: foot (bilateral toes) Psychiatry: normal affect, normal mood Diagnosis, Assessment Plan Consultants: cardiology, cardiovascular surgery, nephrology, wound care Free Text DxA P Notes Free Text DxA P Notes: 67 YO female with PMHx of HTN, DM, CHF, ESRD on HD who initially presented at [facility] with SOB and fatigue. Sh regan was [...] ulcers/severe PAD 06/26/21: s/p peripheral angiogram and POOL TABLE OPERATOR to th e anterior tibial artery [employer] CHIEF of right anterior/posterior tibial artery, n eed staged intervention on a later date PT/OT- Rehab eval ongoing Electronically Signed by Sabrina Tirado NP on 1 08/30/21 at 1209 Electronically Signed by Herson Tang MD on at 1633 RPT #:[id number] END OF REPORT 2022-06-29 08:00:00-00:00 [facility] Hospitalist Progress Note REPORT#:[id number] REPORT STATUS: Signed DATE:06/29/22 TIME: 0800 PATIENT: MESERET MOTTA UNIT #: [id number] ROOM/BED: [place] [address] : 56 AGE: 67 SEX: F ATTEND: Skye Johnson MD ADM AUTHOR: Skye Johnson MD * ALL edits or amendments must be made on the [employer] document * Subjective Chief complaint: Plan for [...] L Albuterol/Ipratropium (DUONEB) 3 ML RTQ4H PRN MN N NEB Ticagrelor (BRILINTA) 90 MG Q12HR [...] PO Metoprolol Tartrate (LOPRESSOR) 12.5 MG Q12HR P O Pantoprazole (PROTONIX) 40 MG 0600,1800 PO Midodrine (PROAMATINE) 10 MG DIALYSIS-DOSE BEFOR E PO (CKD) Albumin Human (ALBUMINAR-25%) 12.5 GM ASDIR PRN IV Heparin Sodium (Porcine) (HEPARIN SODIUM) 3,000 UNIT ASDIR PRN DIALYSIS Lidocaine HCl (LIDOCAINE HCL/PF) 0.5 ML ASDIR MN N I-DERMAL (CKD) Mannitol (MANNITOL 25% 12.5GM/50ML) 12.5 GM ASDI R PRN IV Sodium Chloride (SODIUM CHLORIDE 0.9%) 2,000 ML ASDIR PRN IV Sodium Chloride (SODIUM CHLORIDE) 5 ML ASDIR PRN IV Sodium Chloride (SODIUM CHLORIDE) 10 ML ASDIR MN N IV Sodium Chloride (SODIUM CHLORIDE 0.9%) [...] soft, no distention Extremities: edema, moves all Neuro/CHAINSTITCH SEWING MACHINE OPERATOR: alert, oriented X 3, normal speech, n [...] (Auto) (14.0 - 32.0 %) 3.8 L Obion % (Auto) (4.8 - 9.0 %) 7.3 Eos % (Auto) (0.3 - 3.7 %) 2.2 Baso % (Auto) (0.0 - 2.0 %) 0.1 Neut # (Auto) (2.0 - 7.6 x10 3/uL) 8.61 H Lymph # (Auto) (1.0 - 3.8 x10 3/uL) 0.38 L Obion # (Auto) (0.1 - 0.8 x10 3/uL) [...] x10 3/uL) 0. 00 Diagnosis, Assessment Plan Consultants: cardiology, cardiovascular surgery, [...] as outpatient Severe PAD/toe ulcer: Status post POOL TABLE OPERATOR and atherec cheri with CSI followed by POOL TABLE OPERATOR with stable balloon on left anterior and [...] Patient is on a Sunday sched jaxon Manager Solution following Functional quadriplegia: Rehab consult as recommended [...] Case management consulted for [facility]. [facility] Quality: Gen Med Crit Care VTE Prophylaxis VTE prophylaxis initiated: yes Current Medications Current medication review: I attest that the foregoing medication list in [facility] medical record is true, accurate, and complete to the best of my knowled ge. Electronically Signed by Skye Johnson MD on 2 at 1508 RPT #:[id number] END OF REPORT 2022-06-29 07:22:00-00:00 [facility] Nephrology Progress Note REPORT#:[id number] REPORT STATUS: Signed DATE:06/29/22 TIME: 721 PATIENT: MESERET MOTTA UNIT #: [id number] ROOM/BED: [place] [address] : 56 AGE: 67 SEX: F ATTEND: [...] disease and hypertension who was transferred to [facility] for CABG. Terrence quevedo initially presented to [facility] in [place] compl aining of shortness of breath. Underwent [...] 100 06/28 2342 97 Room air 06/28 195 36.8 92 11 146/80 102.0 97 06/28 [...] Hrs Albuterol/Ipratropium (DUONEB) 3 ML RTQ4H PRN MN N NEB Ticagrelor (BRILINTA) 90 MG Q12HR [...] Lidocaine HCl (LIDOCAINE HCL/PF) 0.5 ML ASDIR MN N I-DERMAL (CKD) Mannitol (MANNITOL 25% 12.5GM/50ML) 12.5 GM ASDI R PRN IV Sodium Chloride (SODIUM CHLORIDE 0.9%) 2,000 ML ASDIR PRN IV Sodium Chloride (SODIUM CHLORIDE) 5 ML ASDIR PRN IV Sodium Chloride (SODIUM CHLORIDE) 10 ML ASDIR MN N IV Sodium Chloride (SODIUM CHLORIDE 0.9%) [...] Musculoskeletal: no CVA tenderness, no tendernes s Neuro/CHAINSTITCH SEWING MACHINE OPERATOR: alert, normal speech Skin: dry, intact Ulcer: [...] - 32.0 %) 2.7 L 6.4 L Obion % (Auto) (4.8 - 9.0 %) 4.9 8.8 Eos % (Auto) (0.3 - 3.7 %) 1.4 1.5 Baso % (Auto) (0.0 - 2.0 %) 0.1 0.1 Neut # (Auto) (2.0 - 7.6 x10 3/uL) 9.74 H 7.78 H Lymph # (Auto) (1.0 - 3.8 x10 3/uL) 0.29 L 0.6 0 L Obion # (Auto) (0.1 - 0.8 x10 3/uL) [...] x10 3/uL) 0.0 0 0.00 Laboratory Tests 06/26 1003 Serology SARS-CoV-2 Ag (Rapid) (Negative) Negative Laboratory Tests 06/28 06/28 06/28 06/28 1939 1847 1120 0908 Chemistry POC Glucose (70 [...] by Jennifer Shelton MD on at 0929 [facility] #:[id number] END OF REPORT 2022-06-28 16:53:00-00:00 [facility] ([facility]) Wound Care Progress Note REPORT#:[id number] REPORT STATUS: Signed DATE:06/28/22 TIME: 1652 PATIENT: MESERET MOTTA UNIT #: [id number] ROOM/BED: [place] [address] : 56 AGE: 67 SEX: F ATTEND: Skye Johnson ADM AUTHOR: Sybil Byers MD * ALL edits or amendments must be made on the [employer]/computer document * Subjective Chief complaint: Woundcare FU for foot, hand leg ulcers; no extre mity pain. Objective General Medications: Active Meds + DC'd Last 24 Hrs Albuterol/Ipratropium (DUONEB) 3 ML RTQ4H PRN MN N NEB Ticagrelor (BRILINTA) 90 MG Q12HR PO Ampicillin Sodium/Sulbactam Sodium (UNASYN 3GM) 3 GM 2100 IV Sodium Chloride (SODIUM CHLORIDE 0.9% 100 ML) 1 00 ML Sodium Chloride (SODIUM CHLORIDE 0.9%) 1,000 ML .[id number] ONE IV (DC) Hydrocodone Bitart/Acetaminophen (NORCO 5/325) 1 TAB Q6H PRN PRN PO Hydrocodone Bitart/Acetaminophen (NORCO 10/325) 1 TAB Q6H PRN PRN PO Atropine Sulfate (ATROPINE SULFATE 0.1MG/ML SYR) 0.5 MG ASDIR PRN IV Sodium Chloride (SODIUM CHLORIDE 0.9%) 1,000 ML .[id number] ONE IV (DC) Sodium Chloride (SODIUM CHLORIDE [...] Lidocaine HCl (LIDOCAINE HCL/PF) 0.5 ML ASDIR MN N I-DERMAL (CKD) Mannitol (MANNITOL 25% 12.5GM/50ML) 12.5 GM ASDI R PRN IV Sodium Chloride (SODIUM CHLORIDE 0.9%) 2,000 ML ASDIR PRN IV Sodium Chloride (SODIUM CHLORIDE) 5 ML ASDIR PRN IV Sodium Chloride (SODIUM CHLORIDE) 10 ML ASDIR MN N IV Sodium Chloride (SODIUM CHLORIDE 0.9%) [...] (Auto) (14.0 - 32.0 %) 2.7 L Obion % (Auto) (4.8 - 9.0 %) 4.9 Eos % (Auto) (0.3 - 3.7 %) 1.4 Baso % (Auto) (0.0 - 2.0 %) 0.1 Neut # (Auto) (2.0 - 7.6 x10 3/uL) 9.74 H Lymph # (Auto) (1.0 - 3.8 x10 3/uL) 0.29 L Obion # (Auto) (0.1 - 0.8 x10 3/uL) [...] Sybil Byers MD on at 1715 RPT #:[id number] END OF REPORT 2022-06-28 14:04:00-00:00 [facility] ([facility]) Cardiology Progress Note REPORT#:[id number] REPORT STATUS: Signed DATE:06/28/22 TIME: 1404 PATIENT: MESERET MOTTA UNIT #: [id number] ROOM/BED: [place] [address] : 56 AGE: 67 SEX: F ATTEND: Adonis Gaytan MD ADM AUTHOR: Kristina Shah CNP * ALL edits or amendments must be made on the [employer]/computer document * Subjective Patient reports: No: complaints. [...] Hrs Albuterol/Ipratropium (DUONEB) 3 ML RTQ4H PRN P RN NEB Ticagrelor (BRILINTA) 90 MG Q12HR PO Ampicillin Sodium/Sulbactam Sodium (UNASYN 3GM) 3 GM 2100 IV Sodium Chloride (SODIUM CHLORIDE 0.9% 100 ML) 1 00 ML Sodium Chloride (SODIUM CHLORIDE 0.9%) 1,000 ML .[id number] ONE IV (DC) Hydrocodone Bitart/Acetaminophen (NORCO 5/325) 1 TAB Q6H PRN PRN PO Hydrocodone Bitart/Acetaminophen (NORCO 10/325) 1 TAB Q6H PRN PRN PO Atropine Sulfate (ATROPINE SULFATE 0.1MG/ML SYR) 0.5 MG ASDIR PRN IV Sodium Chloride (SODIUM CHLORIDE 0.9%) 1,000 ML .[id number] ONE IV (DC) Sodium Chloride (SODIUM CHLORIDE [...] Lidocaine HCl (LIDOCAINE HCL/PF) 0.5 ML ASDIR MN N I-DERMAL (CKD) Mannitol (MANNITOL 25% 12.5GM/50ML) 12.5 GM ASDI R PRN IV Sodium Chloride (SODIUM CHLORIDE 0.9%) 2,000 ML ASDIR PRN IV Sodium Chloride (SODIUM CHLORIDE) 5 ML ASDIR PRN IV Sodium Chloride (SODIUM CHLORIDE) 10 ML ASDIR MN N IV Sodium Chloride (SODIUM CHLORIDE 0.9%) [...] edema, abnormal pedal pulse Musculoskeletal: normal inspection Neuro/CHAINSTITCH SEWING MACHINE OPERATOR: alert, oriented X 3, normal speech Skin: [...] (Auto) (14.0 - 32.0 %) 2.7 L [place] % (Auto) (4.8 - 9.0 %) 4.9 Eos % (Auto) (0.3 - 3.7 %) 1.4 Baso % (Auto) (0.0 - 2.0 %) 0.1 Neut # (Auto) (2.0 - 7.6 x10 3/uL) 9.74 H Lymph # (Auto) (1.0 - 3.8 x10 3/uL) 0.29 L [place] # (Auto) (0.1 - 0.8 x10 3/uL) [...] ESRD on HD who initially presented at [facility] with SOB and fatigue. Sh regan was [...] ulcers/severe PAD 06/26/21: s/p peripheral angiogram and POOL TABLE OPERATOR to th e anterior tibial artery [employer] of right anterior/posterior tibial artery, n eed staged intervention on a later date at 1416 Electronically Signed by Herson Tang MD on at 2646 [facility] #:[id number] END OF REPORT 2022-06-28 12:50:00-00:00 [facility] ([facility]) Pulmonary Consultation Note REPORT#:[id number] REPORT STATUS: Signed DATE:06/28/22 TIME: 1250 PATIENT: MESERET MOTTA UNIT #: [id number] ROOM/BED: [place] [address] : 56 AGE: 67 SEX: F ATTEND: Skye Johnson ADM AUTHOR: Ana Bobo * ALL edits or amendments must be made on the [employer]/computer document * History of Present Illness HPI [...] hospital with chest pain shortness of mando , had positive troponin. Deemed too high risk for surgical revascularization. Underwent PCI with stenting yesterday. Echo with normal EF. CT chest with small bilateral effusio ns, diffuse groundglass opacities consistent with pu lm edema, small pericardial effusion. Currently on nasal cannula O2, [...] Reviewed LISINOPRIL (ZESTRIL) #90 - SIG Obtained 06/21/22 From Strength: 5 MG TAB Ava 1951 2001 LEVOTHYROXINE #90 - SIG Obtained 06/21/2206/08 From (SYNTHROID) Ava 2002 2004 Strength: 150 [...] (PROTONIX) 2004 2004 Strength: 40 MG TAB. MUPIROCIN 1 APPLIC TOPICAL BID 06/22/22 2 (BACTROBAN 2%) 1118 1118 Strength: 2 % OINTMENT LORATADINE (CLARITIN) 10 MG PO DAILY 06/23/22 1 08/24/21 Strength: 10 MG TAB 0822 0823 Current Hospital Medications: fs Category Unknown Sig/Enedina Start time Last Medication Dose Route Stop Time Status Admin Melatonin 3 MG BEDTIME PRN PRN 06/21 190 AC (Melatonin) PO 07/21 1859 0102 Anti-Infective Agents Sig/Enedina Start time Last Medication Dose Route Stop Time Status Admin Ampicillin Sodium/ 3 GM 2100 06/27 2100 AC Sulbactam Sodium IV 07/04 2059 2340 (UNASYN [...] 06/22 2100 AC 06/28 (LOPRESSOR) PO 07/22 205 0910 Lidocaine HCl 0.5 ML ASDIR PRN [...] Time Status Admin Sodium Chloride 1,000 ML .[id number] ONE 06/27 180 0 DC (SODIUM CHLORIDE IV 06/28 0719 0.9%) Sodium Chloride 1,000 ML .[id number] ONE 06/27 160 0 DC 06/27 (SODIUM [...] (DEXTROSE 10% IN IV 07/21 185 WATER) Gastrointestinal Drugs Sig/Enedina Start time Last Medication Dose Route Stop Time Status Admin Pantoprazole 40 MG 0600,1800 06/22 1800 AC 06/09 1 (PROTONIX) PO 07/22 175 0550 Ondansetron HCl 4 MG Q6H PRN [...] 06/28 (BACTROBAN 2% 22 GM TOPICAL 06/28 1759 0904 OINTMENT) Vitamins Sig/Enedina Start time Last [...] Result Date Time Pulse Ox 100 06/28 1121 B/P 177/99 06/28 1121 B/P Mean 125.4 06/28 1121 O2 Delivery Nasal cannula 06/28 1121 O2 Flow Rate 7 06/28 1121 Temp 36.5 06/28 1121 Pulse 108 06/28 112 Resp 16 06/28 112 General appearance: alert, awake, oriented, no a cute distress Head/eyes: atraumatic, normocephalic, PERRL Neck: supple/no meningismus, no bruit/NL carotid s, no lymphadenopathy Cardiovascular: normal S1/S2, no rub, no gallop Respiratory/chest: decreased breath sounds, symmetric expansion, no distress, no tenderness Abdomen: soft, normal bowel sounds, no distentio n, no guarding Extremities: edema, no clubbing Neuro/CHAINSTITCH SEWING MACHINE OPERATOR: alert, oriented X 3, no motor deficit [...] (Auto) (14.0 - 32.0 %) 2.7 L Obion % (Auto) (4.8 - 9.0 %) 4.9 Eos % (Auto) (0.3 - 3.7 %) 1.4 Baso % (Auto) (0.0 - 2.0 %) 0.1 Neut # (Auto) (2.0 - 7.6 x10 3/uL) 9.74 H Lymph # (Auto) (1.0 - 3.8 x10 3/uL) 0.29 L Obion # (Auto) (0.1 - 0.8 x10 3/uL) [...] patient wit h you. at 1301 RPT #:[id number] END OF REPORT 2022-06-28 10:24:00-00:00 [facility] ([facility]) Adult General Consultation REPORT#:[id number] REPORT STATUS: Signed DATE:06/28/22 TIME: 1024 PATIENT: MESERET MOTTA UNIT #: [id number] ROOM/BED: [place] [address] : 56 AGE: 67 SEX: F ATTEND: Skye Johnson ADM AUTHOR: Lisa Vega NP * ALL edits or amendments must be made on the [employer]/computer document * History of Present Illness Requesting Clinician: IM Reason for consult: PMR eval and support Chief complaint: weakness and debility PCP: PCP: No Primary or Family Physician HPI: 67 YO female with PMHx of HTN, DM, CHF, ESRD on HD who initially presented at [facility] with SOB and fatigue. Sh e was treated for NSTEMI and acute CHF exacerbation. 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 She is transferred her for CABG nataly luation. Echo showed LVEF 50%. CVS was consulted for possible CABG. Case presente d at complex case conference, Recommend attempt PCI. LE arterial doppler - severe PAD Pt is s/p POOL TABLE OPERATOR a nd atherectomy with CSI followed by POOL TABLE OPERATOR with TAVR balloon on lef t anterior and posterior tibial artery [employer] of right anterior/posterior tibial artery- w ill [...] (PROTONIX) 2004 2004 Strength: 40 MG TAB. MUPIROCIN 1 APPLIC TOPICAL BID 06/22/22 2 (BACTROBAN 2%) 1118 1118 Strength: 2 % OINTMENT LORATADINE (CLARITIN) 10 MG PO DAILY 06/23/22 06/23/22 Strength: 10 MG TAB 0822 0823 Current [...] 06/24 2100 AC 06/27 (RETACRIT) SUBQ 07/24 2059 2143 Clopidogrel Bisulfate 75 MG DAILY 06/23 [...] Metoprolol Tartrate 12.5 MG Q12HR 06/22 2100 A C 06/28 (LOPRESSOR) PO 07/22 2058 0910 Lidocaine [...] 06/21 1730 AC 06/27 (TYLENOL) PO 07/21 172 1301 Electrolytic, Caloric, And Bailey Sig/Enedina Start time Last Medication Dose Route Stop Time Status Admin Sodium Chloride 1,000 ML .[id number] ONE 06/27 180 0 DC (SODIUM CHLORIDE IV 06/28 0719 0.9%) Sodium Chloride 1,000 ML .[id number] ONE 06/27 160 0 DC 06/27 (SODIUM [...] (DEXTROSE 10% IN IV 07/21 185 WATER) Gastrointestinal Drugs Sig/Enedina Start time Last Medication Dose Route Stop Time Status Admin Pantoprazole 40 MG 0600,1800 06/22 1800 AC 06/09 1 (PROTONIX) PO 07/22 1758 0550 Ondansetron HCl 4 MG Q6H PRN [...] PRN 06/21 1900 AC (GLUCAGON) IM 07/21 185 Skin And Mucous Membrane [...] BUE -4/5 BLE proximal -3/5 Distal +3/5 Neuro/CHAINSTITCH SEWING MACHINE OPERATOR: alert, oriented X 3, CNII-XII grossly intact, NL cerebellar function, normal speech Skin: BLE feet with multi sores Ulcer: Type/cause: diabetic, arterial Location: foot (bilateral toes) Psychiatry: normal affect, n ormal judgment/insight, normal mood, not homicidal, not suicidal, no hallucinations Results Findings/Data: Laboratory Tests: 06/29 1536 1124 [...] 110 MG/DL) 172 H 108 172 H 1 86 H Calcium (8.0 - 10.5 mg/dL) 9.3 [...] (Auto) (14.0 - 32.0 %) 3.8 L Obion % (Auto) (4.8 - 9.0 %) 7.3 Eos % (Auto) (0.3 - 3.7 %) 2.2 Baso % (Auto) (0.0 - 2.0 %) 0.1 Neut # (Auto) (2.0 - 7.6 x10 3/uL) 8.61 H Lymph # (Auto) (1.0 - 3.8 x10 3/uL) 0.38 L Obion # (Auto) (0.1 - 0.8 x10 3/uL) [...] -End-stage renal disease on hemodialysis -Severe PVD-(s/p POOL TABLE OPERATOR and ath erectomy with CSI followed by POOL TABLE OPERATOR with TAVR balloon on left anterior and [...] poc. Answe red all quesions at 2226 [facility] #:[id number] END OF REPORT 2022-06-28 08:41:00-00:00 [id number] [place] [address] PATIENT NAME: MESERET MOTTA ADMIT DATE: 06/22 ACCOUNT NO: [id number] ROOM NO: 4404 AGE: 67 REPORT TYPE: CARDIAC CATHETERIZATION REPORT SEX : F ADMITTING PHYSICIAN:Delmy Ashton MD ATTENDING PHYSICIAN:Adonis Gaytan MD PROCEDURE DATE: 06/27/2022 INDICATION FOR PROCEDURE: [...] obtained, the patient was brought into the medical laboratory manager. The patient was prepp ed and draped in sterile fashion. Left common femoral artery was accessed using micropuncture technique under fluoroscopy guidance. Then, a #6 Belarusian sheath was inserted and I went up [...] into the LAD. PATIENT NAME: MESERET MOTTA [id number] Dictated By: Herson Tang MD Date Dictated: 06/28/2022 08:41:18 Date Transcribed: 06/28/2022 10:21:20 JOSÉ MIGUEL/SONDRA/DORIS/TAVON Receipt ID: [id number] Authenticated by Herson Tang MD On 06:06:55 AM Electronically Signed by Herson Tang MD on 0 07/11/22 at 0606 PATIENT NAME: MESERET MOTTA [id number] 07:57:00-00:00 [facility] Hospitalist Progress Note REPORT#:[id number] REPORT STATUS: Signed DATE:06/28/22 TIME: 075 PATIENT: MESERET MOTTA UNIT #: [id number] ROOM/BED: [place] [address] : 56 AGE: 67 SEX: F ATTEND: Skye Johnson ADM AUTHOR: Skye Johnson MD * ALL edits or amendments must be made on the [employer]/computer document * Subjective Chief complaint: Patient on [...] Hrs Albuterol/Ipratropium (DUONEB) 3 ML RTQ4H PRN MN N NEB Ticagrelor (BRILINTA) 90 MG Q12HR PO Ampicillin Sodium/Sulbactam Sodium (UNASYN 3GM) 3 GM 2100 IV Sodium Chloride (SODIUM CHLORIDE 0.9% 100 ML) 1 00 ML Sodium Chloride (SODIUM CHLORIDE 0.9%) 1,000 ML .[id number] ONE IV (DC) Hydrocodone Bitart/Acetaminophen (NORCO 5/325) 1 TAB Q6H PRN PRN PO Hydrocodone Bitart/Acetaminophen (NORCO 10/325) 1 TAB Q6H PRN PRN PO Atropine Sulfate (ATROPINE SULFATE 0.1MG/ML SYR) 0.5 MG ASDIR PRN IV Sodium Chloride (SODIUM CHLORIDE 0.9%) 1,000 ML .[id number] ONE IV (DC) Sodium Chloride (SODIUM CHLORIDE [...] Lidocaine HCl (LIDOCAINE HCL/PF) 0.5 ML ASDIR MN N I-DERMAL (CKD) Mannitol (MANNITOL 25% 12.5GM/50ML) 12.5 GM ASDI R PRN IV Sodium Chloride (SODIUM CHLORIDE 0.9%) 2,000 ML ASDIR PRN IV Sodium Chloride (SODIUM CHLORIDE) 5 ML ASDIR PRN IV Sodium Chloride (SODIUM CHLORIDE) 10 ML ASDIR MN N IV Sodium Chloride (SODIUM CHLORIDE 0.9%) [...] soft, no distention Extremities: edema, moves all Neuro/CHAINSTITCH SEWING MACHINE OPERATOR: alert, oriented X 3, normal speech, n o motor deficits Ulcer: Type/cause: diabetic, arterial Location: foot (bilateral toes) Psychiatry: normal affect Results Findings/Data: Laboratory Tests 06/28 06/28 06/28 06/28 06/27 1120 0908 0535 0535 2051 Chemistry Sodium (134 - 147 mEq/L) 138 [...] (Auto) (14.0 - 32.0 %) 2.7 L Obion % (Auto) (4.8 - 9.0 %) 4.9 Eos % (Auto) (0.3 - 3.7 %) 1.4 Baso % (Auto) (0.0 - 2.0 %) 0.1 Neut # (Auto) (2.0 - 7.6 x10 3/uL) 9.74 H Lymph # (Auto) (1.0 - 3.8 x10 3/uL) 0.29 L Obion # (Auto) (0.1 - 0.8 x10 3/uL) [...] as outpatient Severe PAD/toe ulcer: Status post POOL TABLE OPERATOR and atherec cheri with CSI followed by POOL TABLE OPERATOR with stable balloon on left anterior and [...] hemodialysis Patient is on a Sunday sched regan Manager Solution following Functional quadriplegia: Rehab consult as recommended [...] Skye Johnson MD on 2 at 1650 RPT #:[id number] END OF REPORT 2022-06-28 07:02:00-00:00 [facility] ([facility] Nephrology Progress Note REPORT#:[id number] REPORT STATUS: Signed DATE:06/28/22 TIME: 07 PATIENT: MESERET MOTTA UNIT #: [id number] ROOM/BED: [place] [address] : 56 AGE: 67 SEX: F ATTEND: Skye Johnson ADM AUTHOR: Jennifer Shelton MD * ALL edits or amendments must be made on the [employer]/computer document * Subjective Chief complaint: Transferred for CABG HPI: Patient seen and evaluated, discussed with care team, 67-year-old female with history of end-stage renal d isease on chronic hemodialysis Sunday, and Sunday, diabetes mellitus, peripheral arterial disease and hypertension who was transferred to [facility] for CABG. Terrence quevedo initially presented to [facility] in [place] compl aining of shortness of breath. Underwent [...] Sodium Chloride (SODIUM CHLORIDE 0.9%) 1,000 ML .[id number] ONE IV Hydrocodone Bitart/Acetaminophen (NORCO 5/325) 1 TAB Q6H PRN PRN PO Hydrocodone Bitart/Acetaminophen (NORCO 10/325) 1 TAB Q6H PRN PRN PO Atropine Sulfate (ATROPINE SULFATE 0.1MG/ML SYR) 0.5 MG ASDIR PRN IV Sodium Chloride (SODIUM CHLORIDE 0.9%) 1,000 ML .[id number] ONE IV (DC) Sodium Chloride (SODIUM CHLORIDE [...] Lidocaine HCl (LIDOCAINE HCL/PF) 0.5 ML ASDIR MN N I-DERMAL (CKD) Mannitol (MANNITOL 25% 12.5GM/50ML) 12.5 GM ASDI R PRN IV Sodium Chloride (SODIUM CHLORIDE 0.9%) 2,000 ML ASDIR PRN IV Sodium Chloride (SODIUM CHLORIDE) 5 ML ASDIR PRN IV Sodium Chloride (SODIUM CHLORIDE) 10 ML ASDIR P RN IV Sodium Chloride (SODIUM CHLORIDE 0.9%) 250 [...] Musculoskeletal: no CVA tenderness, no tendernes s Neuro/CHAINSTITCH SEWING MACHINE OPERATOR: alert, normal speech Skin: dry, intact Ulcer: [...] - 32.0 %) 2.7 L 6.4 L Obion % (Auto) (4.8 - 9.0 %) 4.9 8.8 Eos % (Auto) (0.3 - 3.7 %) 1.4 1.5 Baso % (Auto) (0.0 - 2.0 %) 0.1 0.1 Neut # (Auto) (2.0 - 7.6 x10 3/uL) 9.74 H 7.78 H Lymph # (Auto) (1.0 - 3.8 x10 3/uL) 0.29 L 0.60 L Obion # (Auto) (0.1 - 0.8 x10 3/uL) [...] by Jennifer Shelton MD on at 0951 RPT #:[id number] END OF REPORT 2022-06-27 15:22:00-00:00 [id number] [place] [address] PATIENT NAME: MESERET MOTTA ADMIT DATE: 06/08 11/27 ACCOUNT NO: [id number] ROOM NO: [id number] AGE: 67 REPORT TYPE: eELECTROCARDIOGRAM REPORT SEX: F ADMITTING PHYSICIAN:Delmy Ashton MD ATTENDING PHYSICIAN:Skye Johnson MD Order: [id number] Test Reason : S/P PCI Test Date/Time [...] Significant changes have occurred Confirmed by MD THIAGO, DEE ([id number]) on 022 6:59:47 AM Referred By: Skye Johnson Confirmed by:DEE DAS MD Electronically Signed by Dee Das MD on 1 08/30/21 at 0659 PATIENT NAME: MESERET MOTTA [id number] 11:13:00-00:00 [facility] ([facility]) Wound Care Progress Note REPORT#:[id number] REPORT STATUS: Signed DATE:06/27/22 TIME: 1113 PATIENT: MESERET MOTTA UNIT #: [id number] ROOM/BED: [place] [address] : 56 AGE: 67 SEX: F ATTEND: Skye Johnson ADM AUTHOR: Sybil Byers MD * ALL edits or amendments must be made on the [employer]/computer document * Subjective Chief complaint: Woundcare FU for foot, hand leg ulcers; no extre mity pain. Objective General Medications: Active Meds + DC'd Last 24 Hrs Sodium Chloride (SODIUM CHLORIDE 0.9%) 1,000 ML .[id number] ONE IV Verapamil HCl (ISOPTIN) 0 .STK-MED [...] Lidocaine HCl (LIDOCAINE HCL/PF) 0.5 ML ASDIR MN N I-DERMAL (CKD) Mannitol (MANNITOL 25% 12.5GM/50ML) 12.5 GM ASDI R PRN IV Sodium Chloride (SODIUM CHLORIDE 0.9%) 2,000 ML ASDIR PRN IV Sodium Chloride (SODIUM CHLORIDE) 5 ML ASDIR PRN IV Sodium Chloride (SODIUM CHLORIDE) 10 ML ASDIR MN N IV Sodium Chloride (SODIUM CHLORIDE 0.9%) [...] dorsum toes, L>R, w erythema @ forefoot, piunched-out appearance suggestive [...] (Auto) (14.0 - 32.0 %) 6.4 L Obion % (Auto) (4.8 - 9.0 %) 8.8 Eos % (Auto) (0.3 - 3.7 %) 1.5 Baso % (Auto) (0.0 - 2.0 %) 0.1 Neut # (Auto) (2.0 - 7.6 x10 3/uL) 7.78 H Lymph # (Auto) (1.0 - 3.8 x10 3/uL) 0.60 L Obion # (Auto) (0.1 - 0.8 x10 3/uL) [...] - 0.1 x10 3/uL) 0.0 0 06/26 1715 1648 1627 1605 Chemistry POC Glucose [...] Sybil Byers MD on at 0016 RPT #:[id number] END OF REPORT 2022-06-27 10:22:00-00:00 [id number] [place] [address] PATIENT NAME: MESERET MOTTA ADMIT DATE: 06/22 ACCOUNT NO: [id number] ROOM NO: 4404 AGE: 67 REPORT TYPE: PULMONARY FUNCTION REPORT [...] Date Transcribed: 06/27/2022 10:41:28 /ARACELI Receipt ID: [id number] Authenticated by YONATHAN LEIGH MD On 07/06/2022 11:09:22 AM Electronically Signed by Yonathan Leigh MD on at 1109 PATIENT NAME: MESERET MOTTA [id number] 2022-06-27 08:07:00-00:00 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 * ALL edits or amendments must be made on the [employer]/computer document * Sabrina Tirado 06/27/22 0807: Subjective Chief complaint: No change Objective General VS/I O: Laboratory Tests 06/27/22 0800: [Embedded Image Not Available] 06/27/22 0605: [Embedded Image Not Available] 06/26/22 0427: [Embedded Image Not Available] Current Medications Sig/Enedina Start time Last Medication Dose Route Stop Time Status Admin Sodium Chloride 1,000 ML .[id number] ONE 06/27 1800 AC IV 06/28 0719 Verapamil HCl 0 .STK-MED ONE 06/27 0952 DC IV Nitroglycerin/ 250 ML .STK-MED ONE 06/27 0945 DC Dextrose IV Heparin Sodium 0 .STK-MED ONE 12/20 0940 DC .ROUTE Heparin Sodium/ 1,000 ML [...] .ROUTE Metoprolol Tartrate 0 .STK-MED ONE 06/27 08 DC .ROUTE Ampicillin Sodium/ 3 GM 1800 [...] HCl 0 .STK-MED ONE 06/26 1455 DC 06/26 .ROUTE 1528 Heparin Sodium/ 1,000 ML .STK-MED ONE 06/26 141 0 DC 06/26 Sodium Chloride IV 1528 Lidocaine HCl 0 .STK-MED ONE 06/26 1410 DC 06/08 9 .ROUTE 1528 Sevelamer Carbonate 3,200 MG C [...] Midodrine 5 MG 0900,1300,1700 06/23 0900 AC 12/2 0 PO 07/23 0859 0948 Levothyroxine Sodium 150 MCG DAILY 0600 06/23 06 00 AC 06/27 PO 07/23 0559 0556 Buspirone HCl 5 MG BID 06/22 2100 AC 06/26 PO 07/22 2058 2226 Metoprolol Tartrate 12.5 MG Q12HR 06/22 2100 AC 06/27 PO 07/22 2058 0841 Pantoprazole 40 MG 0600,1800 06/22 1800 AC 06/27 PO 07/22 1759 0556 Midodrine 10 MG DIALYSIS-DOSE 06/22 1545 [...] 07/22 0759 0840 Atorvastatin Calcium 40 MG 06/21 AC PO 07/21 2058 2226 Insulin Human Lispro 0 AC HS [...] 2 MG Q4H PRN PRN 06/21 190 DC 06/25 IV 06/26 185 232 Tramadol HCl 50 MG Q6H PRN PRN 06/21 1900 DC PO 06/26 1859 185 Acetaminophen 650 MG Q4H PRN PRN 06/21 173 AC 1 08/24 PO 07/21 172 0828 Heparin Sodium 5,000 UNIT ASDIR PRN 06/21 173 A C 06/22 IV 07/21 1729 1449 Nitroglycerin 0.4 MG Q5M PRN PRN 06/21 173 AC SL 07/21 172 Ondansetron HCl 4 MG Q6H PRN PRN 06/21 173 AC 1 08/25 IV 07/21 172 2213 24 hour I O ending at 0700: 06/27 0700 06/260 Intake Total 410.00 Output Total 1000 Balance -590.00 Intake, IV 10.00 Intake, Oral 400 Number 0 Bowel Movements Number Voids 1 Output, 1000 Hemodialysis Output, Stool 0 Vital Signs: Date Time Temp Pulse Resp B/P B/P Pulse O2 O2 F low FiO2 Mean Ox Delivery Rate 06/27 0808 36.4 82 16 125/76 92.2 99 Nasal 3 cannula 06/27 0441 36.4 75 16 125/76 92.0 97 Nasal cannula 06/26 2327 36.3 91 18 146/65 92.1 96 Nasal cannula 06/26 2128 36.6 72 19 108/59 97 Nasal [...] edema, abnormal pedal pulse Musculoskeletal: normal inspection Neuro/CHAINSTITCH SEWING MACHINE OPERATOR: alert, oriented X 3, normal speech Skin: scabs lower extremities Ulcer: Type/cause: diabetic, arterial Location: foot (bilateral toes) Psychiatry: normal affect, normal mood Diagnosis, Assessment Plan Consultants: cardiology, cardiovascular surgery, nephrology, wound care Free Text DxA P Notes Free Text DxA P Notes: 67 YO female with PMHx of HTN, DM, CHF, ESRD on HD who initially presented at [facility] with SOB and fatigue. Sh regan was [...] LE arterial doppler - severe PAD s/p POOL TABLE OPERATOR and atherectomy with CSI followed by POOL TABLE OPERATOR with TAVR balloon on left anterior and posterior tibial artery [employer] CH[employer]F of right anterior/posterior tibial artery- w ill need staged intervention continue supportive care Herson Tang 06/27/22 0923: Attestations Physician Attestation Agree w/findings plan: I Agree with the findings and plan as documented by Sabrina Tirado. I did PCI to LCx with 2.25 x 20 mm and post dilated with 2.5 NC ballon. Chanage Plavix to Brilinta, Electronically Signed by Sabrina Tirado DRYWALL MECHANIC on 1 08/28/21 at 1437 Electronically Signed by Herson Tang MD on at 2342 RPT #:[id number] END OF REPORT 2022-06-27 07:49:00-00:00 [facility] ([facility]) Nephrology Progress Note REPORT#:[id number] REPORT STATUS: Signed DATE:06/27/22 TIME: 07 PATIENT: MESERET MOTTA UNIT #: [id number] [address] AGE: 67 SEX: F ATTEND: Nidhi [...] disease and hypertension who was transferred to [facility] for CABG. Terrence quevedo initially presented to [facility] in [place] compl aining of shortness of breath. Underwent [...] 75 16 125/76 92.0 97 Nasal cannula 06/267 36.3 91 18 146/65 92.1 96 Nasal cannula 06/26 2128 36.6 72 19 108/59 97 Nasal [...] Sodium Chloride (SODIUM CHLORIDE 0.9%) 1,000 ML .[id number] ONE IV Ampicillin Sodium/Sulbactam Sodium (UNASYN 3GM) [...] Lidocaine HCl (LIDOCAINE HCL/PF) 0.5 ML ASDIR MN N I-DERMAL (CKD) Mannitol (MANNITOL 25% 12.5GM/50ML) 12.5 GM ASDI R PRN IV Sodium Chloride (SODIUM CHLORIDE 0.9%) 2,000 ML ASDIR PRN IV Sodium Chloride (SODIUM CHLORIDE) 5 ML ASDIR PRN IV Sodium Chloride (SODIUM CHLORIDE) 10 ML ASDIR MN N IV Sodium Chloride (SODIUM CHLORIDE 0.9%) [...] Musculoskeletal: no CVA tenderness, no tendernes s Neuro/CHAINSTITCH SEWING MACHINE OPERATOR: alert, normal speech Skin: dry, intact Ulcer: [...] - 32.0 %) 6.2 L 5.1 L Obion % (Auto) (4.8 - 9.0 %) 10.3 H 8.3 Eos % (Auto) (0.3 - 3.7 %) 1.3 1.5 Baso % (Auto) (0.0 - 2.0 %) 0.1 0.1 Neut # (Auto) (2.0 - 7.6 x10 3/uL) 11.42 H 10.8 4 H Lymph # (Auto) (1.0 - 3.8 x10 3/uL) 0.87 L 0.65 L Obion # (Auto) (0.1 - 0.8 x10 3/uL) [...] film evidence of osteomyelitis. Impression By: Torie - Jett Mosher M.D. Laboratory Tests 06/27 [...] 3.9 L removed, plan for dialysis in morning. 06/26/2022 laboratory this tiffany mcfarland showed [...] by Jennifer Shelton MD on at 1044 [facility] #:[id number] END OF REPORT 2022-06-27 07:34:00-00:00 [facility] Hospitalist Progress Note REPORT#:[id number] REPORT STATUS: Signed DATE:06/27/22 TIME: 07 PATIENT: MESERET MOTTA UNIT #: [id number] ROOM/BED: [place] [address] : 56 AGE: 67 SEX: F ATTEND: Nidhi Ashton MD ADM AUTHOR: Skye Johnson MD * ALL edits or amendments must be made on the [employer]/computer document * Subjective Chief complaint: Status post POOL TABLE OPERATOR and atherect waldo with CSI followed by POOL TABLE OPERATOR with stable balloon on left anterior and [...] 06/26 2000 Nasal 4 cannula 06/26 1906 97.5 76 18 101/66 0.0 97 Nasal [...] Sodium Chloride (SODIUM CHLORIDE 0.9%) 1,000 ML .[id number] ONE IV Fentanyl Citrate (SUBLIMAZE) 0 .STK-MED [...] Carbonate (RENVELA) 3,200 MG C MEALS PO Epoetin Vanesa-epbx (RETACRIT) 6,000 UNIT TuThSa@2 100 SUBQ Clopidogrel Bisulfate (Plavix) 75 MG DAILY PO Mupirocin (BACTROBAN 2% 22 GM OINTMENT) 1 APPLI C BID TOPICAL Calcitriol (RocaltroL) 0.5 MCG DAILY [...] Lidocaine HCl (LIDOCAINE HCL/PF) 0.5 ML ASDIR MN N I-DERMAL (CKD) Mannitol (MANNITOL 25% 12.5GM/50ML) 12.5 GM ASDI R PRN IV Sodium Chloride (SODIUM CHLORIDE 0.9%) 2,000 ML ASDIR PRN IV Sodium Chloride (SODIUM CHLORIDE) 5 ML ASDIR PRN IV Sodium Chloride (SODIUM CHLORIDE) 10 ML ASDIR MN N IV Sodium Chloride (SODIUM CHLORIDE 0.9%) [...] soft, no distention Extremities: edema, moves all Neuro/CHAINSTITCH SEWING MACHINE OPERATOR: alert, oriented X 3, normal speech, n [...] (Auto) (14.0 - 32.0 %) 6.4 L Obion % (Auto) (4.8 - 9.0 %) 8.8 Eos % (Auto) (0.3 - 3.7 %) 1.5 Baso % (Auto) (0.0 - 2.0 %) 0.1 Neut # (Auto) (2.0 - 7.6 x10 3/uL) 7.78 H Lymph # (Auto) (1.0 - 3.8 x10 3/uL) 0.60 L Obion # (Auto) (0.1 - 0.8 x10 3/uL) [...] today 06/27 Severe PAD/toe ulcer: Status post POOL TABLE OPERATOR and atherec cheri with CSI followed by POOL TABLE OPERATOR with stable balloon on left anterior and [...] hemodialysis Patient is on a Sunday sched e Manager Solution following Elevated LFTs Secondary to hepatic congestion Monitor LFTs Type 2 diabetes mellitus on insulin sliding scale Diabetic diet Hypothyroidism Resume Synthroid Anemia of chronic disease -Transfuse for Hb <7 -No bleeding hypotension on midodrine on empiric IV CTX check labs in am SCD for DVT prophylaxis. Disposition: Status post POOL TABLE OPERATOR and atherectomy wit h CSI followed by POOL TABLE OPERATOR with stable balloon on left anter ior and posterior tibial artery, for right anterior and posterior tibial artery Will need staged int ervention as per cardiology. PCI today. Blood culture pen ding, awaiting PT/OT eval, A1c, LDL pending, on [...] Skye Johnson MD on 2 at 1423 RPT #:[id number] END OF REPORT 2022-06-26 18:43:00-00:00 [id number] [address] PATIENT NAME: MESERET MOTTA ADMIT DATE: 06/22 ACCOUNT NO: [id number] ROOM NO: G.4404 AGE: 67 REPORT TYPE: [...] the left anter ior tibial artery. 5. POOL TABLE OPERATOR and atherectomy of the left anter ior tibial artery using CSI 1.25 alejandra. 6. Moderate sedation. 7. Perclose closure device to the right common f emoral artery. DESCRIPTION OF PROCEDURE: After informed consent was obtained, the patient was brought into the medical laboratory manager. The patient was prepp ed and draped in sterile fashion. Right common femora l artery was accessed using micropuncture technique under fluoroscopy guidance. Then, a 5-[place] she ath was inserted. Then I went up with a pigtail placed through the abdominal a delmis and I did abdominal aortogram. Then, I went up and over to t he left SFA using IM catheter and then I exchanged the IM catheter into angled glide catheter, 5-Belarusian, placed in the left SFA and I performed angiogram of the left l ower extremity. It showed moderate disease in the left SFA distally and left popliteal and 1-vessel runoff below the knee, the peroneal and she had LAND [employer]YING [employer]Y CHIEF of the left anterior tibial artery and the posterior tibial artery. I decided to in tervene on the left anterior tibial artery as will be flip cribed below. At the end of the intervention, I put a short 6-Belarusian sheath and I performed angiogram of the [...] is patent. 8. Anterior tibial artery is [employer] in the left lower extremity, multiple segments PATIENT NAME: MESERET MOTTA [id number] of [employer]IEF on the proximal, mid and distal o n the left side. On the right side, it appears to be [employer]F as well as not well visualized on the right side. 9. Peroneal artery, patent bilateral. 10. Posterior tibial artery occluded bilaterally . DESCRIPTION OF PROCEDURE: I decided to intervene on the left anterior tibial artery. I went up with desti nation sheath 65 cm 6-Belarusian placed in the left SFA and I went up with Advantage wire 0.035 with Nishant iCross 150 cm angle tip and I advanced the NaviCross to the left popli teal artery distally. Then, I took the NaviCross and exchanged into a Runthrough wire a nd I was able to cross the proximal [employer] CHIEF and mid [employer] CH[employer]F, but I was not able to advance [...] went up with CSI 1.25 bur, Classic Crandall and I did multiple runs in low [...] tibial artery, so I went with the NavAlejo ross, placed it in the left anterior [...] right lower extremi ty through the short 6-Belarusian sheath and then I secured th e arteriotomy site with Perclose closure device with good hemostasis achieved. IMPRESSION: 1. 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 2. 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 PLAN: Continue aspirin, Plavix, statin and lifes tyle modification. Dictated By: Herson Tang MD Date Dictated: 06/26/2022 18:43:43 Date Transcribed: 06/26/2022 20:24:11 JOSÉ MIGUEL/EJ PATIENT NAME: MESERET MOTTA [id number] Receipt ID: [id number] Authenticated by Herson Tang MD On 3 06:06:52 AM Electronically Signed by Herson Tang MD on 0 07/11/22 at 0606 PATIENT NAME: MESERET MOTTA [id number] 3946-12-19 13:54:00-00:00 [facility] RE[facility]#:[id number] REPORT STATUS: Signed DATE:06/26/22 TIME: 1354 PATIENT: MESERET MOTTA UNIT #: [id number] ROOM/BED: 4421-1 : 56 AGE: 67 SEX: F ATTEND: Skye Johnson ADM AUTHOR: Sabrina Tirado NP * ALL edits or amendments must be made on the el [employer]/computer document * Sabrina Tirado 06/26/22 1354: Subjective [...] PO 07/26 0759 Sodium Chloride 1,000 ML .[id number] ONE 06/25 1800 DC 06/25 IV 06/26 0719 1822 Epoetin Vanesa-epbx 6,000 UNIT TuThSa@2100 06/24 2 100 AC 06/24 SUBQ 07/24 Sevelamer Carbonate 1,600 MG C MEALS 06/24 1200 DC 06/25 PO 07/24 1159 1725 Clopidogrel 75 MG DAILY 06/23 1800 AC 06/26 Bisulfate PO 07/23 175 0854 Mupirocin 1 APPLIC BID 06/23 1800 AC 06/26 TOPICAL 06/28 175 0857 Ceftriaxone Sodium 1,000 MG Q24H 06/23 1330 DC 1 08/26 Sodium Chloride 10 ML IV [...] 40 MG 0600,1800 06/22 1800 AC 06/08 9 PO 07/22 175 0417 Midodrine 10 MG [...] 2100 06/21 2100 AC PO 07/21 2059 2033 Insulin Human Lispro 0 AC HS 06/21 2100 AC 06/25 SUBQ 07/21 2059 1726 Dextrose/Water 125 ML ASDIR PRN 06/21 1900 CKD IV 07/21 1859 Dextrose/Water 250 ML ASDIR PRN 06/21 1900 CKD IV 07/21 1859 Glucagon 1 MG ASDIR PRN 06/21 1900 AC IM 07/21 1859 Melatonin 3 MG BEDTIME PRN PRN 06/21 1900 AC PO 07/21 1859 0102 Morphine Sulfate 2 MG Q4H PRN PRN 06/21 1900 AC 06/25 IV 06/26 1859 2326 Tramadol HCl 50 MG Q6H PRN PRN 06/21 1900 AC PO 06/26 1859 2139 Acetaminophen 650 MG Q4H PRN PRN 06/21 1730 AC 1 08/24 PO 07/21 1729 0828 Heparin Sodium 5,000 UNIT ASDIR PRN 06/21 1730 A C 06/22 IV 07/21 1729 1449 Nitroglycerin 0.4 MG Q5M PRN PRN 06/21 1730 AC SL 07/21 1729 Ondansetron HCl 4 MG Q6H PRN PRN 06/21 1730 AC 1 08/25 IV 07/21 1729 2213 24 hour I [...] edema, abnormal pedal pulse Musculoskeletal: normal inspection Neuro/CHAINSTITCH SEWING MACHINE OPERATOR: alert, oriented X 3, normal speech Skin: [...] By: Torie Mosher M.D. Diagnosis, Assessment Plan Consultants: cardiology, cardiovascular surgery, nephrology, wound care Free Text DxA P Notes Free Text DxA P Notes: 67 YO female with PMHx of HTN, DM, CHF, ESRD on HD who initially presented at [facility] with SOB and fatigue. Sh regan was [...] and examined the pt, I Agree with e findings and plan as documented by Sabrina Tirado. S/p peripheral angiogram and POOL TABLE OPERATOR to the anterior tibial artery Electronically Signed by Sabrina Tirado DRYWALL MECHANIC on 1 08/27/21 at 1357 Electronically Signed by Herson Tang MD on at 1104 RPT #:[id number] END OF REPORT 2022-06-26 07:54:00-00:00 [facility] Nephrology Progress Note REPORT#:[id number] REPORT STATUS: Signed DATE:06/26/22 TIME: 0754 PATIENT: MESERET MOTTA UNIT #: [id number] ROOM/BED: [place] [address] : 56 AGE: 67 SEX: F ATTEND: Nidhi Ashton MD ADM AUTHOR: Jenniefr Shelton MD * ALL edits or amendments must be made on the el [employer]/computer document * Subjective Chief complaint: Transferred for CABG HPI: Patient seen and evaluated, discussed with care team, 67-year-old female with history of end-stage renal d isease on chronic hemodialysis Sunday, and Sunday, diabetes mellitus, peripheral arterial disease and hypertension who was transferred to [facility] for CABG. Terrence quevedo initially presented to [facility] in [place] compl aining of shortness of breath. Underwent [...] Sodium Chloride (SODIUM CHLORIDE 0.9%) 1,000 ML .[id number] ONE IV (DC) Epoetin Vanesa-epbx (RETACRIT) 6,000 [...] Lidocaine HCl (LIDOCAINE HCL/PF) 0.5 ML ASDIR MN N I-DERMAL (CKD) Mannitol (MANNITOL 25% 12.5GM/50ML) 12.5 GM ASDI R PRN IV Sodium Chloride (SODIUM CHLORIDE 0.9%) 2,000 ML ASDIR PRN IV Sodium Chloride (SODIUM CHLORIDE) 5 ML ASDIR PRN IV Sodium Chloride (SODIUM CHLORIDE) 10 ML ASDIR MN N IV Sodium Chloride (SODIUM CHLORIDE 0.9%) [...] Musculoskeletal: no CVA tenderness, no tendernes s Neuro/CHAINSTITCH SEWING MACHINE OPERATOR: alert, normal speech Skin: dry, intact Ulcer: [...] - 32.0 %) 6.2 L 5.1 L Obion % (Auto) (4.8 - 9.0 %) 10.3 H 8.3 Eos % (Auto) (0.3 - 3.7 %) 1.3 1.5 Baso % (Auto) (0.0 - 2.0 %) 0.1 0.1 Neut # (Auto) (2.0 - 7.6 x10 3/uL) 11.42 H 10.8 4 H Lymph # (Auto) (1.0 - 3.8 x10 3/uL) 0.87 L 0.65 L Obion # (Auto) (0.1 - 0.8 x10 3/uL) [...] Jennifer Shelton MD on at 1034 RPT #:[id number] END OF REPORT 2022-06-26 07:12:00-00:00 [facility] ([facility]) Hospitalist Progress Note REPORT#:[id number] REPORT STATUS: Signed DATE:06/26/22 TIME: 711 PATIENT: MESERET MOTTA UNIT #: [id number] ROOM/BED: [place] [address] : 56 AGE: 67 SEX: F ATTEND: Nidhi Ashton MD ADM AUTHOR: Skye Johnson MD * ALL edits or amendments must be made on the el [employer]/computer document * Subjective Chief complaint: No complaint. [...] ML Fentanyl Citrate (SUBLIMAZE) 0 .STK-MED ONE .ROU TE (DC) Midazolam HCl (VERSED) 0 .STK-MED ONE .ROUTE (DC ) Heparin Sodium/Sodium Chloride (HEPARIN 1,000 UN ITS/NS 500ML) 1,000 ML .STK- MED ONE IV (DC) Lidocaine HCl (LIDOCAINE HCL/PF) 0 .STK-MED ONE .ROUTE (DC) Sevelamer Carbonate (RENVELA) 3,200 MG C MEALS P O Sodium Chloride (SODIUM CHLORIDE 0.9%) 1,000 ML .[id number] ONE IV (DC) Epoetin Vanesa-epbx (RETACRIT) 6,000 [...] Lidocaine HCl (LIDOCAINE HCL/PF) 0.5 ML ASDIR MN N I-DERMAL (CKD) Mannitol (MANNITOL 25% 12.5GM/50ML) 12.5 GM ASDI R PRN IV Sodium Chloride (SODIUM CHLORIDE 0.9%) 2,000 ML ASDIR PRN IV Sodium Chloride (SODIUM CHLORIDE) 5 ML ASDIR PRN IV Sodium Chloride (SODIUM CHLORIDE) 10 ML ASDIR MN N IV Sodium Chloride (SODIUM CHLORIDE 0.9%) [...] soft, no distention Extremities: edema, moves all Neuro/CHAINSTITCH SEWING MACHINE OPERATOR: alert, oriented X 3, normal speech, n [...] (Auto) (14.0 - 32.0 %) 6.2 L Obion % (Auto) (4.8 - 9.0 %) 10.3 H Eos % (Auto) (0.3 - 3.7 %) 1.3 Baso % (Auto) (0.0 - 2.0 %) 0.1 Neut # (Auto) (2.0 - 7.6 x10 3/uL) 11.42 H Lymph # (Auto) (1.0 - 3.8 x10 3/uL) 0.87 L Obion # (Auto) (0.1 - 0.8 x10 3/uL) [...] hemodialysis Patient is on a Sunday sched radamese Manager Solution following Elevated LFTs Secondary to hepatic congestion [...] attest that the foregoing medication list in [facility] medical record is true, accurate, and complete to the best of my knowled ge. Electronically Signed by Skye Johnson MD on 2 at 1530 RPT #:[id number] END OF REPORT 2022-06-25 14:22:00-00:00 [facility] Wound Care Progress Note REPORT#:[id number] REPORT STATUS: Signed DATE:06/25/22 TIME: 1421 PATIENT: MESERET MOTTA UNIT #: [id number] ROOM/BED: [place] [address] : 56 AGE: 67 SEX: F ATTEND: Ab yousuf Ashton MD ADM AUTHOR: Sybil Byers MD * ALL edits or amendments must be made on the el [employer]/computer document * Subjective Chief complaint: Woundcare FU [...] Lidocaine HCl (LIDOCAINE HCL/PF) 0.5 ML ASDIR MN N I-DERMAL (CKD) Mannitol (MANNITOL 25% 12.5GM/50ML) 12.5 GM ASDI R PRN IV Sodium Chloride (SODIUM CHLORIDE 0.9%) 2,000 ML ASDIR PRN IV Sodium Chloride (SODIUM CHLORIDE) 5 ML ASDIR PRN IV Sodium Chloride (SODIUM CHLORIDE) 10 ML ASDIR MN N IV Sodium Chloride (SODIUM CHLORIDE 0.9%) [...] Status Admin Epoetin Vanesa-epbx 6,000 UNIT TuThSa@2100 06/24 2 [...] 07/22 2058 0826 Epoetin Vanesa-epbx 4,000 UNIT TuThSa@06/22 2 100 DC 06/22 SUBQ 06/24 Metoprolol Tartrate 12.5 MG Q12HR 06/22 2100 [...] HS 06/21 2100 AC 06/25 SUBQ 07/21 2058 1209 Dextrose/Water 125 ML ASDIR PRN 06/21 [...] HCl 50 MG Q6H PRN PRN 06/21 190 AC PO 06/26 185 0829 Acetaminophen 650 [...] (Auto) (14.0 - 32.0 %) 5.1 L Obion % (Auto) (4.8 - 9.0 %) 8.3 Eos % (Auto) (0.3 - 3.7 %) 1.5 Baso % (Auto) (0.0 - 2.0 %) 0.1 Neut # (Auto) (2.0 - 7.6 x10 3/uL) 10.84 H Lymph # (Auto) (1.0 - 3.8 x10 3/uL) 0.65 L Obion # (Auto) (0.1 - 0.8 x10 3/uL) [...] Signed by Sybil Byers MD on at 1731 RPT #:[id number] END OF REPORT 2022-06-25 11:16:00-00:00 [facility] Hospitalist Progress Note REPORT#:[id number] REPORT STATUS: Signed DATE:06/25/22 TIME: 1116 PATIENT: MESERET MOTTA UNIT #: [id number] ROOM/BED: [place] [address] : 56 AGE: 67 SEX: F ATTEND: Nidhi Ashton MD ADM AUTHOR: Stacy Segal MD * ALL edits or amendments must be made on the el [employer]/computer document * Subjective Chief complaint: no acute [...] (DC) Metoprolol Tartrate (LOPRESSOR) 12.5 MG Q12HR P O Pantoprazole (PROTONIX) 40 MG 0600,1800 PO Midodrine (PROAMATINE) 10 MG DIALYSIS-DOSE BEFOR E PO (CKD) Albumin Human (ALBUMINAR-25%) 12.5 GM ASDIR PRN IV Heparin Sodium (Porcine) (HEPARIN SODIUM) 3,000 UNIT ASDIR PRN DIALYSIS Lidocaine HCl (LIDOCAINE HCL/PF) 0.5 ML ASDIR MN N I-DERMAL (CKD) Mannitol (MANNITOL 25% 12.5GM/50ML) 12.5 GM ASDI R PRN IV Sodium Chloride (SODIUM CHLORIDE 0.9%) 2,000 ML ASDIR PRN IV Sodium Chloride (SODIUM CHLORIDE) 5 ML ASDIR PRN IV Sodium Chloride (SODIUM CHLORIDE) 10 ML ASDIR MN N IV Sodium Chloride (SODIUM CHLORIDE 0.9%) [...] soft, no distention Extremities: edema, moves all Neuro/CHAINSTITCH SEWING MACHINE OPERATOR: alert, oriented X 3, normal speech, n [...] (Auto) (14.0 - 32.0 %) 5.1 L Obion % (Auto) (4.8 - 9.0 %) 8.3 Eos % (Auto) (0.3 - 3.7 %) 1.5 Baso % (Auto) (0.0 - 2.0 %) 0.1 Neut # (Auto) (2.0 - 7.6 x10 3/uL) 10.84 H Lymph # (Auto) (1.0 - 3.8 x10 3/uL) 0.65 L Obion # (Auto) (0.1 - 0.8 x10 3/uL) [...] Patient is on a Sunday sched jaxon Manager Solution following Type 2 diabetes mellitus on insulin [...] of my knowled ge. at 2301 RPT #:[id number] END OF REPORT 2022-06-25 11:12:00-00:00 [facility] Hospitalist Progress Note REPORT#:[id number] REPORT STATUS: Signed DATE:06/25/22 TIME: 1112 PATIENT: MESERET MOTTA UNIT #: [id number] ROOM/BED: [place] [address] : 56 AGE: 67 SEX: F ATTEND: Nidhi Ashton MD ADM AUTHOR: Stacy Segal MD * ALL edits or amendments must be made on the el [employer]/computer document * See Addendum Subjective Chief complaint: [...] (DC) Metoprolol Tartrate (LOPRESSOR) 12.5 MG Q12HR P O Pantoprazole (PROTONIX) 40 MG 0600,1800 PO Midodrine (PROAMATINE) 10 MG DIALYSIS-DOSE BEFOR E PO (CKD) Albumin Human (ALBUMINAR-25%) 12.5 GM ASDIR PRN IV Heparin Sodium (Porcine) (HEPARIN SODIUM) 3,000 UNIT ASDIR PRN DIALYSIS Lidocaine HCl (LIDOCAINE HCL/PF) 0.5 ML ASDIR MN N I-DERMAL (CKD) Mannitol (MANNITOL 25% 12.5GM/50ML) 12.5 GM ASDI R PRN IV Sodium Chloride (SODIUM CHLORIDE 0.9%) 2,000 ML ASDIR PRN IV Sodium Chloride (SODIUM CHLORIDE) 5 ML ASDIR PRN IV Sodium Chloride (SODIUM CHLORIDE) 10 ML ASDIR MN N IV Sodium Chloride (SODIUM CHLORIDE 0.9%) [...] soft, no distention Extremities: edema, moves all Neuro/CHAINSTITCH SEWING MACHINE OPERATOR: alert, oriented X 3, normal speech, n o motor deficits Ulcer: Type/cause: diabetic, arterial Location: foot (bilateral toes) Results Findings/Data: Laboratory Tests 06/25 06/25 06/25 06/24 06/24 1335 5421 0541 9080 3555 Chemistry Sodium (134 - 147 mEq/L) 137 [...] (Auto) (14.0 - 32.0 %) 5.1 L Obion % (Auto) (4.8 - 9.0 %) 8.3 Eos % (Auto) (0.3 - 3.7 %) 1.5 Baso % (Auto) (0.0 - 2.0 %) 0.1 Neut # (Auto) (2.0 - 7.6 x10 3/uL) 10.84 H Lymph # (Auto) (1.0 - 3.8 x10 3/uL) 0.65 L Obion # (Auto) (0.1 - 0.8 x10 3/uL) [...] hemodialysis Patient is on a Sunday sched regan Manager Solution following Type 2 diabetes mellitus on insulin [...] please delete this note at 1116 RPT #:[id number] END OF REPORT 2022-06-25 08:00:00-00:00 [facility] Nephrology Progress Note REPORT#:[id number] REPORT STATUS: Signed DATE:06/25/22 TIME: 0800 PATIENT: MESERET MOTTA UNIT #: [id number] ROOM/BED: [place] [address] : 56 AGE: 67 SEX: F ATTEND: Nidhi Ashton MD ADM AUTHOR: Jennifer Shelton MD * ALL edits or amendments must be made on the [employer]/computer document * Subjective Chief complaint: Transferred for CABG HPI: Patient seen and evaluated, discussed with care team, 67-year-old female with history of end-stage renal d isease on chronic hemodialysis Sunday, and Sunday, diabetes mellitus, peripheral arterial disease and hypertension who was transferred to [facility] for CABG. Terrence quevedo initially presented to [facility] in [place] compl aining of shortness of breath. 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 [facility], potassium 4.3, CO2 25, BUN 31, creatinine 4.5, alkaline phosphatase 272, st atus post ultrafiltration yesterday, 3.9 L removed, plan for dialysis in t morning. Electronically Signed by Jennifer Shelton MD on at 1801 [facility] #:[id number] END OF REPORT 2022-06-25 06:36:00-00:00 [facility] Cardiology Progress Note REPORT#:[id number] REPORT STATUS: Signed DATE:06/25/22 TIME: 0636 PATIENT: MESERET MOTTA UNIT #: [id number] ROOM/BED: [place] [address] : 56 AGE: 67 SEX: F ATTEND: Nidhi Ashton MD ADM AUTHOR: Dee Das MD * ALL edits or amendments must be made on the [employer] document * Subjective Chief complaint: No change [...] Sodium Chloride (SODIUM CHLORIDE 0.9%) 1,000 ML .[id number] ONE IV (CAN) Epoetin Vanesa-epbx (RETACRIT) 6,000 [...] Lidocaine HCl (LIDOCAINE HCL/PF) 0.5 ML ASDIR MN N I-DERMAL (CKD) Mannitol (MANNITOL 25% 12.5GM/50ML) 12.5 GM ASDI R PRN IV Sodium Chloride (SODIUM CHLORIDE 0.9%) 2,000 ML ASDIR PRN IV Sodium Chloride (SODIUM CHLORIDE) 5 ML ASDIR PRN IV Sodium Chloride (SODIUM CHLORIDE) 10 ML ASDIR MN N IV Sodium Chloride (SODIUM CHLORIDE 0.9%) [...] pedal pulse, no edema Musculoskeletal: normal inspection Neuro/CHAINSTITCH SEWING MACHINE OPERATOR: alert, oriented X 3, normal speech Skin: [...] ESRD on HD who initially presented at [facility] with SOB and fatigue. Sh regan was [...] by Dee Das MD on at 0637 [facility] #:[id number] END OF REPORT 2022-06-24 23:34:00-00:00 [facility] ([facility]) Hospitalist Progress Note REPORT#:[id number] REPORT STATUS: Signed DATE:06/24/22 TIME: 2333 PATIENT: MESERET MOTTA UNIT #: [id number] ROOM/BED: [place] [address] : 56 AGE: 67 SEX: F ATTEND: Nidhi Ashton MD ADM AUTHOR: Stacy Segal MD * ALL edits or amendments must be made on the [employer]/computer document * Subjective Chief complaint: no acute [...] Sodium Chloride (SODIUM CHLORIDE 0.9%) 1,000 ML .[id number] ONE IV (CAN) Epoetin Vanesa-epbx (RETACRIT) 6,000 [...] BID PO Epoetin Vanesa-epbx (RETACRIT) 4,000 UNIT TuThSa@ 2100 SUBQ (DC) Metoprolol Tartrate (LOPRESSOR) 12.5 MG Q12HR PO Pantoprazole (PROTONIX) 40 MG 0600,1800 PO Midodrine (PROAMATINE) 10 MG DIALYSIS-DOSE BEFOR E PO (CKD) Albumin Human (ALBUMINAR-25%) 12.5 GM ASDIR PRN IV Heparin Sodium (Porcine) (HEPARIN SODIUM) 3,000 UNIT ASDIR PRN DIALYSIS Lidocaine HCl (LIDOCAINE HCL/PF) 0.5 ML ASDIR MN N I-DERMAL (CKD) Mannitol (MANNITOL 25% 12.5GM/50ML) 12.5 GM ASDI R PRN IV Sodium Chloride (SODIUM CHLORIDE 0.9%) 2,000 ML ASDIR PRN IV Sodium Chloride (SODIUM CHLORIDE) 5 ML ASDIR PRN IV Sodium Chloride (SODIUM CHLORIDE) 10 ML ASDIR MN N IV Sodium Chloride (SODIUM CHLORIDE 0.9%) [...] soft, no distention Extremities: edema, moves all Neuro/CHAINSTITCH SEWING MACHINE OPERATOR: alert, oriented X 3, normal speech, n [...] (Auto) (14.0 - 32.0 %) 5.3 L Obion % (Auto) (4.8 - 9.0 %) 8.3 Eos % (Auto) (0.3 - 3.7 %) 1.9 Baso % (Auto) (0.0 - 2.0 %) 0.2 Neut # (Auto) (2.0 - 7.6 x10 3/uL) 11.18 H Lymph # (Auto) (1.0 - 3.8 x10 3/uL) 0.70 L Obion # (Auto) (0.1 - 0.8 x10 3/uL) [...] Patient is on a Sunday sched jaxon Manager Solution following Type 2 diabetes mellitus on insulin [...] MD on 1 08/25/21 at 2335 RPT #:[id number] END OF REPORT 2022-06-24 17:15:00-00:00 [facility] ([facility]) Wound Care Progress Note REPORT#:[id number] REPORT STATUS: Signed DATE:06/24/22 TIME: 1715 PATIENT: MESERET MOTTA UNIT #: [id number] ROOM/BED: [place] [address] : 56 AGE: 67 SEX: F ATTEND: Nidhi Ashton MD ADM AUTHOR: Sybil Byers MD * ALL edits or amendments must be made on the [employer]/computer document * Subjective Chief complaint: Woundcare FU for foot, hand leg ulcers; c/o sl S OB, but no extremity pain. Objective General Medications: Active Meds + DC'd Last 24 Hrs Sodium Chloride (SODIUM CHLORIDE 0.9%) 1,000 ML .[id number] ONE IV (CAN) Epoetin Vanesa-epbx (RETACRIT) 6,000 [...] Lidocaine HCl (LIDOCAINE HCL/PF) 0.5 ML ASDIR MN N I-DERMAL (CKD) Mannitol (MANNITOL 25% 12.5GM/50ML) 12.5 GM ASDI R PRN IV Sodium Chloride (SODIUM CHLORIDE 0.9%) 2,000 ML ASDIR PRN IV Sodium Chloride (SODIUM CHLORIDE) 5 ML ASDIR PRN IV Sodium Chloride (SODIUM CHLORIDE) 10 ML ASDIR MN N IV Sodium Chloride (SODIUM CHLORIDE 0.9%) [...] foot (bilateral toes) Results Findings/Data: Microbiology: 06/23 181 FOOT: Wound Culture - RES 06/23 1614 URINE: Urine Culture - RES Current Medications Sig/Enedina Start time Last Medication Dose Route Stop Time Status Admin Sodium Chloride 1,000 ML .[id number] ONE 06/25 180 0 CAN IV 06/26 0719 Epoetin Vanesa-epbx 6,000 UNIT TuThSa@2100 06/24 2 100 AC 06/24 SUBQ 07/24 Sevelamer Carbonate 1,600 MG C MEALS 06/24 1200 AC 06/24 PO 07/24 1159 1727 Clopidogrel 75 MG DAILY 06/23 [...] Pantoprazole 40 MG 0600,1800 06/22 1800 AC 06/24 PO 07/22 175 1727 Midodrine 10 MG DIALYSIS-DOSE 06/22 1545 CKD BEFORE PO 07/22 1544 1314 Albumin Human 12.5 GM ASDIR PRN 06/22 1530 AC 1 08/23 IV 07/23 1529 1548 Heparin Sodium 3,000 UNIT ASDIR PRN 06/22 1530 AC 06/24 (Porcine) DIALYSIS 07/22 1529 0858 Lidocaine [...] 06/21 2100 AC 06/08 7 SUBQ 07/21 2058 1727 Dextrose/Water 125 ML ASDIR PRN 06/21 [...] PRN 06/21 1730 DC 06/23 PO 07/21 172 0842 Nitroglycerin 0.4 MG Q5M PRN PRN 06/21 1730 AC SL 07/21 172 Ondansetron HCl 4 MG Q6H PRN PRN 06/21 1730 AC 1 08/25 IV 07/21 1729 2213 Laboratory Tests: 06/24 06/24 06/24 06/24 06/24 1858 1523 [...] (Auto) (14.0 - 32.0 %) 5.3 L Obion % (Auto) (4.8 - 9.0 %) 8.3 Eos % (Auto) (0.3 - 3.7 %) 1.9 Baso % (Auto) (0.0 - 2.0 %) 0.2 Neut # (Auto) (2.0 - 7.6 x10 3/uL) 11.18 H Lymph # (Auto) (1.0 - 3.8 x10 3/uL) 0.70 L Obion # (Auto) (0.1 - 0.8 x10 3/uL) [...] by Sybil Byers MD on at 2243 [facility] #:[id number] END OF REPORT 2022-06-24 10:51:00-00:00 [facility] ([facility]) Nephrology Progress Note REPORT#:[id number] REPORT STATUS: Signed DATE:06/24/22 TIME: 1051 PATIENT: MESERET MOTTA UNIT #: [id number] ROOM/BED: [place] [address] : 56 AGE: 67 SEX: F ATTEND: Nidhi Ashton MD ADM AUTHOR: Jennifer Shelton MD * ALL edits or amendments must be made on the [employer]/computer document * Subjective Chief complaint: Transferred for CABG HPI: Patient seen and evaluated, discussed with care team, 67-year-old female with history of end-stage renal d isease on chronic hemodialysis Sunday, and Sunday, diabetes mellitus, peripheral arterial disease and hypertension who was transferred to [facility] for CABG. Terrence quevedo initially presented to [facility] in [place] compl aining of shortness of breath. Underwent [...] Sodium Chloride (SODIUM CHLORIDE 0.9%) 1,000 ML .[id number] ONE IV Epoetin Vanesa-epbx (RETACRIT) 6,000 UNIT [...] Sodium Chloride (SODIUM CHLORIDE) 10 ML ASDIR MN N IV Sodium Chloride (SODIUM CHLORIDE 0.9%) [...] Musculoskeletal: no CVA tenderness, no tendernes s Neuro/CHAINSTITCH SEWING MACHINE OPERATOR: alert, normal speech Skin: dry, intact Ulcer: [...] (Auto) (14.0 - 32.0 %) 5.3 L Obion % (Auto) (4.8 - 9.0 %) 8.3 Eos % (Auto) (0.3 - 3.7 %) 1.9 Baso % (Auto) (0.0 - 2.0 %) 0.2 Neut # (Auto) (2.0 - 7.6 x10 3/uL) 11.18 H Lymph # (Auto) (1.0 - 3.8 x10 3/uL) 0.70 L [place] # (Auto) (0.1 - 0.8 x10 3/uL) [...] pH (5.0 - 7.0) 5.0 Ur Specific Burton (1.005 - 1.030) 1.028 Urine Protein (NEGATIVE) [...] Jennifer Shelton MD on at 1242 RPT #:[id number] END OF REPORT 2022-06-24 10:46:00-00:00 [facility] Cardiothoracic Surgery Prog REPORT#:[id number] REPORT STATUS: Signed DATE:06/24/22 TIME: 1046 PATIENT: MESERET MOTTA UNIT #: [id number] ROOM/BED: [place] [id number] : 57 AGE: 67 SEX: F ATTEND: Adonis Gaytan MD ADM AUTHOR: Aleja Funk * ALL edits or amendments must be made on the [employer]/computer document * Subjective Chief complaint: Shortness of [...] distention, no lemons Extremities: dry, moves all Neuro/CHAINSTITCH SEWING MACHINE OPERATOR: alert, oriented X 3 Skin: dry, intact [...] her peripheral vascular disease. She presented to [facility] in [place] with complaints of dyspnea on exe rtion and rest. Review of her records from previous hospital admission show elevated troponin with a peak of 5600. She underwent left heart catheterization which s howed multivessel coronary artery disease and subsequen tly transferred to [facility] for evaluation for coronary artery bypass surgery. [...] se conference, recommend attempt PCI- Discussed with [employer]. Patient seen by Dr Ashton. Discussed with Patient high risk for surgical in tervention. Planned LHC and PCI on Sunday with [employer]. Electronically Signed by Aleja Funk on 1 08/26/21 at 2014 at 1539 RPT #:[id number] END OF REPORT 2022-06-24 10:34:00-00:00 [facility] ([facility]) Cardiology Progress Note REPORT#:[id number] REPORT STATUS: Signed DATE:06/24/22 TIME: 1034 PATIENT: MESERET MOTTA UNIT #: [id number] ROOM/BED: 4421-1 : 56 AGE: 67 SEX: F ATTEND: Nidhi Ashton MD ADM AUTHOR: Dee Das MD * ALL edits or amendments must be made on the el [employer]/computer document * Subjective Chief complaint: No change [...] Sodium Chloride (SODIUM CHLORIDE 0.9%) 1,000 ML .[id number] ONE IV Epoetin Vanesa-epbx (RETACRIT) 6,000 UNIT [...] Lidocaine HCl (LIDOCAINE HCL/PF) 0.5 ML ASDIR MN N I-DERMAL (CKD) Mannitol (MANNITOL 25% 12.5GM/50ML) 12.5 GM ASDI R PRN IV Sodium Chloride (SODIUM CHLORIDE 0.9%) 2,000 ML ASDIR PRN IV Sodium Chloride (SODIUM CHLORIDE) 5 ML ASDIR PRN IV Sodium Chloride (SODIUM CHLORIDE) 10 ML ASDIR MN N IV Sodium Chloride (SODIUM CHLORIDE 0.9%) [...] pedal pulse, no edema Musculoskeletal: normal inspection Neuro/CHAINSTITCH SEWING MACHINE OPERATOR: alert, oriented X 3, normal speech Skin: [...] H Laboratory Tests 06/23 1123 Coagulation PTT (Lavaca) (25.0 - 39.5 Seconds) 72.0 H Laboratory [...] (Auto) (14.0 - 32.0 %) 5.3 L Obion % (Auto) (4.8 - 9.0 %) 8.3 Eos % (Auto) (0.3 - 3.7 %) 1.9 Baso % (Auto) (0.0 - 2.0 %) 0.2 Neut # (Auto) (2.0 - 7.6 x10 3/uL) 11.18 H Lymph # (Auto) (1.0 - 3.8 x10 3/uL) 0.70 L Obion # (Auto) (0.1 - 0.8 x10 3/uL) [...] pH (5.0 - 7.0) 5.0 Ur Specific Burton (1.005 - 1.030) 1.028 Urine Protein (NEGATIVE) [...] ESRD on HD who initially presented at [facility] with SOB and fatigue. Sh regan was [...] by Dee Das MD on at 1035 RPT #:[id number] END OF REPORT 2022-06-23 17:02:00-00:00 [facility] ([facility]) Wound Care Consultation Note REPORT#:[id number] REPORT STATUS: Signed DATE:06/23/22 TIME: 1702 PATIENT: MESERET MOTTA UNIT #: [id number] ROOM/BED: [place] [address] : 56 AGE: 67 SEX: F ATTEND: Nidhi Ashton MD ADM AUTHOR: Sybil Byers MD * ALL edits or amendments must be made on the [employer]/computer document * History of Present Illness Reason for consult: wounds/ulcers on B hands, feet, legs Chief complaint: Woundcare for foot, hand leg ulcers HPI: 67 YO female with PMHx of HTN, DM, CHF, ESRD on HD who initially presented at [facility] with SOB and fatigue. Sh e was treated for NSTEMI and acute CHF exacerbation. 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 She is transferred to [facility] for CABG evaluation. Echo showed LVEF 50%. POOL TABLE OPERATOR is pending. Patient reports she fell 1 [...] LISINOPRIL (ZESTRIL) #90 - SIG Obtained From DrF irst LEVOTHYROXINE (SYNTHROID) #90 - SIG Obtained Fro Fir busPIRone (BUSPIRONE) 5 MG PO ONCE FAMOTIDINE [...] Skin: Multiple abrasions PT ulcers on dorsum cilfford ds. Multiple ulcers on dorsum L foot, [...] pH (5.0 - 7.0) 5.0 Ur Specific Burton (1.005 - 1.030) 1.028 Urine Protein (NEGATIVE) [...] (Auto) (14.0 - 32.0 %) 5.3 L Obion % (Auto) (4.8 - 9.0 %) 8.4 Eos % (Auto) (0.3 - 3.7 %) 2.1 Baso % (Auto) (0.0 - 2.0 %) 0.2 Neut # (Auto) (2.0 - 7.6 x10 3/uL) 10.10 H Lymph # (Auto) (1.0 - 3.8 x10 3/uL) 0.64 L Obion # (Auto) (0.1 - 0.8 x10 3/uL) [...] in the vis ualized abdomen. Impression By: [email or web address] Tiffany Juan ULTRASOUND - DOP ART SGL LEVEL JARRETT [...] the tibial arteries . Impression By: [email or web address] Tiffany Juan ULTRASOUND - DUP EXTRACRANIAL JARRETT 06/22 1509 [...] Impression By: [email or web address] - Glenn Obando M.D. Current Medications Sig/Enedina Start time Last Medication Dose Route Stop Time Status Admin Epoetin Vanesa-epbx 6,000 UNIT TuThSa@2100 06/24 2 100 AC SUBQ 07/24 205 Clopidogrel 75 MG DAILY 06/23 1800 AC Bisulfate PO 07/23 175 Ceftriaxone Sodium 1,000 MG Q24H 06/23 1330 [...] 07/22 2058 0834 Epoetin Vanesa-epbx 4,000 UNIT TuThSa@2100 06/22 2 100 AC 06/22 SUBQ 06/24 2059 2202 Metoprolol Tartrate 12.5 MG Q12HR 06/22 2100 AC 06/23 PO 07/22 2058 0829 Pantoprazole 40 MG 0600,1800 06/22 1800 AC 06/08 6 PO 07/22 175 0521 Midodrine 10 MG DIALYSIS-DOSE 06/22 1545 [...] 2,000 ML ASDIR PRN 06/22 1530 AC 06/23 IV 07/23 1529 1413 Sodium Chloride [...] 2100 06/21 2100 AC PO 07/21 2058 2201 Insulin Human Lispro 0 AC HS 06/21 2100 AC 06/08 6 SUBQ 07/21 2058 0829 Dextrose/Water 125 ML ASDIR PRN 06/21 1900 CKD IV 07/21 1859 Dextrose/Water 250 ML ASDIR PRN 06/21 1900 CKD IV 07/21 1859 Glucagon 1 MG ASDIR PRN 06/21 1900 AC IM 07/21 1859 Melatonin 3 MG BEDTIME PRN PRN 06/21 1900 AC PO 07/21 185 2045 Morphine Sulfate 2 MG Q4H PRN PRN 06/21 1900 AC 06/22 IV 06/26 185 0104 Tramadol HCl 50 MG Q6H PRN PRN 06/21 1900 AC PO 06/26 185 1313 Acetaminophen 650 MG Q4H PRN PRN 06/21 1730 AC 1 08/24 PO 07/21 172 0828 Heparin Sodium 5,000 UNIT ASDIR PRN 06/21 1730 A C 06/22 IV 07/21 172 1449 Heparin Sodium 500 ML ASDIR 06/21 1730 DC 06/23 (Porcine) IV 07/21 172 0521 Magnesium Hydroxide 30 ML BEDTIME PRN PRN 06/21 1730 AC 06/23 PO 07/21 172 0842 Nitroglycerin 0.4 MG Q5M PRN PRN 06/21 173 AC SL 07/21 172 Ondansetron HCl 4 MG Q6H PRN PRN 06/21 173 AC IV 07/21 172 Diagnosis, Assessment Plan Free Text A P: [...] Sybil Byers MD on at 2236 RPT #:[id number] END OF REPORT 2022-06-23 15:29:00-00:00 [facility] Cardiology Progress Note REPORT#:[id number] REPORT STATUS: Signed DATE:06/23/22 TIME: 1529 PATIENT: MESERET MOTTA UNIT #: [id number] ROOM/BED: [place] [address] : 56 AGE: 67 SEX: F ATTEND: Nidhi Ashton MD ADM AUTHOR: Kristina Shah SENIOR COST ANALYST * ALL edits or amendments must be made on the [employer] document * See Addendum Kristina Shah 06/23/22 [...] Lidocaine HCl (LIDOCAINE HCL/PF) 0.5 ML ASDIR MN N I-DERMAL (CKD) Mannitol (MANNITOL 25% 12.5GM/50ML) 12.5 GM ASDI R PRN IV Sodium Chloride (SODIUM CHLORIDE 0.9%) 2,000 ML ASDIR PRN IV Sodium Chloride (SODIUM CHLORIDE) 5 ML ASDIR PRN IV Sodium Chloride (SODIUM CHLORIDE) 10 ML ASDIR MN N IV Sodium Chloride (SODIUM CHLORIDE 0.9%) [...] pedal pulse, no edema Musculoskeletal: normal inspection Neuro/CHAINSTITCH SEWING MACHINE OPERATOR: alert, oriented X 3, normal speech Skin: scabs lower extremities Ulcer: Type/cause: diabetic, arterial Location: foot (bilateral toes) Psychiatry: normal affect, normal mood Results Findings/Data: Laboratory Tests 06/23 06/23 06/22 06/22 1201 0408 2149 1832 Chemistry POC Glucose (70 - 110 MG/DL) 147 H 246 H 186 H 125 H Laboratory Tests 06/23 06/23 06/22 1123 0409 2050 Coagulation PTT (Milena) (25.0 - 39.5 Seconds) [...] (Auto) (14.0 - 32.0 %) 5.3 L Obion % (Auto) (4.8 - 9.0 %) 8.4 Eos % (Auto) (0.3 - 3.7 %) 2.1 Baso % (Auto) (0.0 - 2.0 %) 0.2 Neut # (Auto) (2.0 - 7.6 x10 3/uL) 10.10 H Lymph # (Auto) (1.0 - 3.8 x10 3/uL) 0.64 L Obion # (Auto) (0.1 - 0.8 x10 3/uL) [...] ESRD on HD who initially presented at [facility] with SOB and fatigue. Sh regan was [...] for peripheral angio next week Herson Tang 06/23/22 1917: Attestations Physician Attestation Agree w/findings plan: I [...] daily, first dose today. at 1705 RPT #:[id number] END OF REPORT 2022-06-23 12:59:00-00:00 [facility] ([facility]) Hospitalist Progress Note REPORT#:[id number] REPORT STATUS: Signed DATE:06/23/22 TIME: 1259 PATIENT: MESERET MOTTA UNIT #: [id number] ROOM/BED: [place] [address] : 56 AGE: 67 SEX: F ATTEND: Nidhi Ashton MD ADM AUTHOR: Steffen Olvera MD * ALL edits or amendments must be made on the [employer]/computer document * Subjective Free Text Subj Notes [...] soft, no distention Extremities: edema, moves all Neuro/CHAINSTITCH SEWING MACHINE OPERATOR: alert, oriented X 3, normal speech, n o motor deficits Results Findings/Data: Laboratory Tests 06/23 06/23 06/22 06/22 1201 0408 2149 1832 Chemistry POC Glucose (70 - 110 MG/DL) 147 H 246 H 186 H 125 H Laboratory Tests 06/23 06/23 06/22 1123 0409 2050 Coagulation PTT (Milena) (25.0 - 39.5 Seconds) [...] (Auto) (14.0 - 32.0 %) 5.3 L Obion % (Auto) (4.8 - 9.0 %) 8.4 Eos % (Auto) (0.3 - 3.7 %) 2.1 Baso % (Auto) (0.0 - 2.0 %) 0.2 Neut # (Auto) (2.0 - 7.6 x10 3/uL) 10.10 H Lymph # (Auto) (1.0 - 3.8 x10 3/uL) 0.64 L Obion # (Auto) (0.1 - 0.8 x10 3/uL) [...] the tibial arteries . Impression By: [email or web address] Tiffany Juan ULTRASOUND - DUP EXTRACRANIAL JARRETT 06/22 1509 [...] no detectable patent l umen. Impression By: Stfefanie Logan ULTRASOUND - DUP VEIN JARRETT 06/22 [...] Patient is on a Sunday sched jaxon Manager Solution following Type 2 diabetes mellitus on insulin sliding scale Diabetic diet Hypothyroidism Resume Synthroid Anemia of chronic disease -Transfuse for Hb <7 -No bleeding Discussed with pt and son at bedside Electronically Signed by Steffen Olvera MD n 06/23/22 at 1307 RPT #:[id number] END OF REPORT 2022-06-23 11:26:00-00:00 [facility]) Cardiothoracic Surgery Prog REPORT#:[id number] REPORT STATUS: Signed DATE:06/23/22 TIME: 1126 PATIENT: MESERET MOTTA UNIT #: [id number] ROOM/BED: [place] [address] : 56 AGE: 67 SEX: F ATTEND: Adonis Gaytan MD ADM AUTHOR: Aleja Funk * ALL edits or amendments must be made on the [employer]/computer document * Subjective Chief complaint: Shortness of [...] 4 06/23 0849 Pulse Ox 96 06/23 752 B/P 108/68 06/23 752 B/P Mean 81.3 06/23 752 Temp 97.5 06/23 752 Pulse 71 06/23 752 Resp 15 06/23 752 24 hour I O ending at 0700: [...] distention, no lemons Extremities: dry, moves all Neuro/CHAINSTITCH SEWING MACHINE OPERATOR: alert, oriented X 3 Skin: dry, intact Results Findings/Data: Laboratory Tests 06/238 2149 1832 1134 1134 Chemistry POC Glucose [...] - 32.0 %) 5.3 L 4.4 L Obion % (Auto) (4.8 - 9.0 %) 8.4 6.8 Eos % (Auto) (0.3 - 3.7 %) 2.1 1.7 Baso % (Auto) (0.0 - 2.0 %) 0.2 0.2 Neut # (Auto) (2.0 - 7.6 x10 3/uL) 10.10 H 11.5 0 H Lymph # (Auto) (1.0 - 3.8 x10 3/uL) 0.64 L 0.58 L Obion # (Auto) (0.1 - 0.8 x10 3/uL) [...] her peripheral vascular disease. She presented to [facility] in [place] with complaints of dyspnea on exe rtion and rest. Review of her records from previous hospital admission show elevated troponin with a peak of 5600. She underwent left heart catheterization which s howed multivessel coronary artery disease and subsequen tly transferred to [facility] for evaluation for coronary artery bypass surgery. [...] se conference, recommend attempt PCI- Discussed with [employer]. Patient seen by Dr Ashton. Electronically Signed by Aleja Funk on 1 08/24/21 at 1134 at 0931 RPT #:[id number] END OF REPORT 2022-06-23 06:22:00-00:00 [facility] ([facility]) Nephrology Progress Note REPORT#:[id number] REPORT STATUS: Signed DATE:06/23/22 TIME: 621 PATIENT: MESERET MOTTA UNIT #: [id number] ROOM/BED: [place] [address] : 56 AGE: 67 SEX: F ATTEND: Nidhi Ashton MD ADM AUTHOR: Jennifer Shelton MD * ALL edits or amendments must be made on the [employer]/computer document * Subjective Chief complaint: Transferred for CABG HPI: Patient seen and evaluated, discussed with care team, 67-year-old female with history of end-stage renal d isease on chronic hemodialysis Sunday, and Sunday, diabetes mellitus, peripheral arterial disease and hypertension who was transferred to [facility] for CABG. Terrence nt initially presented to [facility] in [place] compl aining of shortness of breath. Underwent [...] Lidocaine HCl (LIDOCAINE HCL/PF) 0.5 ML ASDIR MN N I-DERMAL (CKD) Mannitol (MANNITOL 25% 12.5GM/50ML) 12.5 GM ASDI R PRN IV Sodium Chloride (SODIUM CHLORIDE 0.9%) 2,000 ML ASDIR PRN IV Sodium Chloride (SODIUM CHLORIDE) 5 ML ASDIR PRN IV Sodium Chloride (SODIUM CHLORIDE) 10 ML ASDIR MN N IV Sodium Chloride (SODIUM CHLORIDE 0.9%) [...] Musculoskeletal: no CVA tenderness, no tendernes s Neuro/CHAINSTITCH SEWING MACHINE OPERATOR: alert, normal speech Skin: dry, intact Results [...] INR (0.8 - 1.2) 1.3 H PTT (Lavaca) (25.0 - 39.5 Seconds) 53.5 H 51.2 [...] - 32.0 %) 5.3 L 4.4 L Obion % (Auto) (4.8 - 9.0 %) 8.4 6.8 Eos % (Auto) (0.3 - 3.7 %) 2.1 1.7 Baso % (Auto) (0.0 - 2.0 %) 0.2 0.2 Neut # (Auto) (2.0 - 7.6 x10 3/uL) 10.10 H 11.5 0 H Lymph # (Auto) (1.0 - 3.8 x10 3/uL) 0.64 L 0.5 8 L Obion # (Auto) (0.1 - 0.8 x10 3/uL) [...] Jennifer Shelton MD on at 1008 RPT #:[id number] END OF REPORT 2022-06-22 19:12:00-00:00 [id number] [place] [address] PATIENT NAME: MESERET MOTTA ADMIT DATE: 06/22 ACCOUNT NO: [id number] ROOM NO: 4421 AGE: 67 REPORT TYPE: eELECTROCARDIOGRAM REPORT SEX: F ADMITTING PHYSICIAN:Delmy Ashton MD ATTENDING PHYSICIAN:Delmy Ashton MD Order: [id number] Test Reason : hx of atrial fibrillation [...] No previous ECGs available Confirmed by MD DAS GERARD ([id number]) on 022 9:21:06 PM Referred By: Jim Dhillon Confirmed by:DEE KELLER MD at 2121 PATIENT NAME: MESERET MOTTA [id number] 0566-12-15 16:55:00-00:00 [id number] [place] [address] PATIENT NAME: MESERET MOTTA ADMIT DATE: 06/22 ACCOUNT NO: [id number] ROOM NO: G.4421 AGE: 67 REPORT TYPE: eECHOCARDIOGRAM REPORT SEX: F ADMITTING PHYSICIAN:Delmy Ashton MD ATTENDING PHYSICIAN:Delmy Ashton MD *[address] [address] Transthoracic Echocardiogram Patient: Meseret Motta Study Date: 06/22/2022 BP: 108 / 60 Location: [facility] URN: [id number] 00 : 1955 Age: 67 Height: 66 in / 167.6 cm Gender: F Weight: 248 .5 lb / 112.9 kg BMI/BSA: 40.2 kg/m 2 / 2.2 m 2 *Ordering Physician: * Aleja Funk *Interpreting Physician: * Herson Tang MD *Perianesthesia Manager: * Karen Block Indications: POST STEMI, Dyspnea, [...] diastolic dysfun ction). PATIENT NAME: MESERET MOTTA [id number] Right ventricle: The cavity size is normal. [...] joss, 14 --------- PATIENT NAME: MESERET MOTTA [id number] TDI E', avg, TDI 4.6 cm/sec --------- [...] 1.71 cm --------- PATIENT NAME: MESERET MOTTA [id number] Peak v, S 1.57 m/sec --------- Mean [...] cm 2 --------- Pulmonic valve Value Ref MN v, ED 0.72 m/sec --------- Aortic root [...] Herson Tang MD 06/22/2022 16:55 PATIENT NAME: HUBERT MOTTACA Walter [id number] at 1655 PATIENT NAME: MESERET MOTTA [id number] 5046-12-15 14:48:00-00:00 [id number] [address] PATIENT NAME: MESERET MOTTA ADMIT DATE: 06/22 ACCOUNT NO: [id number] ROOM NO: G.4421 AGE: 67 REPORT TYPE: 360 - QUERY RESPONSE DOCUMENT SEX: F ADMITTING PHYSICIAN:Delmy Ashton MD ATTENDING PHYSICIAN:Delmy Ashton MD Provider Query QUERY TEXT: Condition General 360MD Query related questions should be directed to: [email or web address] Based on your clinical judgement can you specify the known or suspected condition that represents the clin [facility] indicators below? The patient's Clinical Indicators include: [...] AM at 1448 PATIENT NAME: MESERET MOTTA [id number] 3960-12-15 13:51:00-00:00 [facility] ([facility]) Hospitalist Progress Note REPORT#:[id number] REPORT STATUS: Signed DATE:06/22/22 TIME: 1351 PATIENT: MESERET MOTTA UNIT #: [id number] ROOM/BED: G.4421-1 : 56 AGE: 67 SEX: F ATTEND: Nidhi Ashton MD ADM AUTHOR: Steffen Olvera MD * ALL edits or amendments must be made on the [employer]computer document * Subjective Free Text Subj Notes [...] soft, no distention Extremities: edema, moves all Neuro/CHAINSTITCH SEWING MACHINE OPERATOR: alert, oriented X 3, normal speech, n [...] H 14.9 H Laboratory Tests 06/22 06/21 1132006 Hematology WBC (4.5 - 11.0 x10 3/uL) [...] - 32.0 %) 4.4 L 7.8 L Obion % (Auto) (4.8 - 9.0 %) 6.8 9.0 Eos % (Auto) (0.3 - 3.7 %) 1.7 1.5 Baso % (Auto) (0.0 - 2.0 %) 0.2 0.2 Neut # (Auto) (2.0 - 7.6 x10 3/uL) 11.50 H 10. 58 H Lymph # (Auto) (1.0 - 3.8 x10 3/uL) 0.58 L 1.02 Obion # (Auto) (0.1 - 0.8 x10 3/uL) [...] Patient is on a Sunday sched jaxon Manager Solution following Type 2 diabetes mellitus on insulin sliding scale Diabetic diet Hypothyroidism Resume Synthroid Anemia of chronic disease -Transfuse for Hb <7 -No bleeding Discussed with pt,sister and son at bedside Electronically Signed by Steffen Olvera MD o n 06/22/22 at 1352 RPT #:[id number] END OF REPORT 2022-06-22 12:50:00-00:00 [facility] ([facility]) Hospitalist Progress Note REPORT#:[id number] REPORT STATUS: Signed DATE:06/22/22 TIME: 1250 PATIENT: MESERET MOTTA UNIT #: [id number] ROOM/BED: [place] [address] : 56 AGE: 67 SEX: F ATTEND: Nidhi Ashton MD ADM AUTHOR: Steffen Olvera MD * ALL edits or amendments must be made on the el [employer] document * Diagnosis, Assessment Plan Free Text [...] Patient is on a Sunday sched jaxon Consult nephrology Type 2 diabetes mellitus Start insulin sliding scale Diabetic diet Hypothyroidism Resume Synthroid Electronically Signed by Steffen Olvera MD o n 06/22/22 at 1357 RPT #:[id number] END OF REPORT 2022-06-22 09:43:00-00:00 [facility] ([facility]) Cardiology Consultation REPORT#:[id number] REPORT STATUS: Signed DATE:06/22/22 TIME: 942 PATIENT: MESERET MOTTA UNIT #: [id number] ROOM/BED: [facility]21-1 : 56 AGE: 67 SEX: F ATTEND: Nidhi Ashton MD ADM AUTHOR: Kristina Shah SENIOR COST ANALYST * ALL edits or amendments must be made on the [employer] document * Kristina Shah 06/22/22 0943: History of Present Illness HPI Requesting Clinician: Dr. Ashton Reason for consult: Cardiac evaluation Chief complaint: Shortness of breath HPI: 67 YO female with PMHx of HTN, DM, CHF, ESRD on HD who initially presented at [facility] with SOB and fatigue. 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 OPERATOR: alert, oriented X 3, normal speech Skin: [...] INR (0.8 - 1.2) 1.3 H PTT (Lavaca) (25.0 - 39.5 Seconds) 30.3 32.1 PT [...] (Auto) (14.0 - 32.0 %) 7.8 L Obion % (Auto) (4.8 - 9.0 %) 9.0 Eos % (Auto) (0.3 - 3.7 %) 1.5 Baso % (Auto) (0.0 - 2.0 %) 0.2 Neut # (Auto) (2.0 - 7.6 x10 3/uL) 10.58 H Lymph # (Auto) (1.0 - 3.8 x10 3/uL) 1.02 Obion # (Auto) (0.1 - 0.8 x10 3/uL) [...] 0 Results: labs reviewed, vital signs reviewed, [facility] personally rev'd Telemetry Interpretation: sinus rhythm Diagnosis, Assessment Plan Plan discussed with: patient, son, nurse Free Text DxA P Notes Free Text DxA P Notes: 67 YO female with PMHx of HTN, DM, CHF, ESRD on HD who initially presented at [facility] with SOB and fatigue. Sh regan was [...] Signed by Herson Tang MD on at 1916 RPT #:[id number] END OF REPORT 2022-06-22 08:34:00-00:00 [facility] Cardiothoracic Surgery Prog REPORT#:[id number] REPORT STATUS: Signed DATE:06/22/22 TIME: 833 PATIENT: MESERET MOTTA UNIT #: [id number] ROOM/BED: [place] [address] : 56 AGE: 67 SEX: F ATTEND: Adonis Gaytan MD ADM AUTHOR: Aleja Funk * ALL edits or amendments must be made on the [employer]/computer document * See Addendum Subjective HPI: 67 [...] her peripheral vascular disease. She presented to [facility] in [place] with complaints of dysnea on exertion and res t. Review of her records from previous hospital admission show elevated troponin with a peak of 5600. She underwent left heart catheterization which s howed multivessel coronary artery disease and subsequen tly transferred to [facility] for evaluation for coronary artery bypass surgery. [...] distention, no lemons Extremities: dry, moves all Neuro/CHAINSTITCH SEWING MACHINE OPERATOR: alert, oriented X 3 Skin: dry, intact Results Findings/Data: Laboratory Tests 06/22 1833 1814 Chemistry Sodium (134 - 147 [...] (3.4 - 5.0 g/dL) 3.60 Laboratory Tests 06/220 1814 Coagulation INR (0.8 - 1.2) 1.3 [...] (Auto) (14.0 - 32.0 %) 7.8 L Obion % (Auto) (4.8 - 9.0 %) 9.0 Eos % (Auto) (0.3 - 3.7 %) 1.5 Baso % (Auto) (0.0 - 2.0 %) 0.2 Neut # (Auto) (2.0 - 7.6 x10 3/uL) 10.58 H Lymph # (Auto) (1.0 - 3.8 x10 3/uL) 1.02 Obion # (Auto) (0.1 - 0.8 x10 3/uL) [...] her peripheral vascular disease. She presented to [facility] in [place] with complaints of dyspnea on exe rtion and rest. Review of her records from previous hospital admission show elevated troponin with a peak of 5600. She underwent left heart catheterization which s howed multivessel coronary artery disease and subsequen tly transferred to [facility] for evaluation for coronary artery bypass surgery. [...] Obtain Dopplers for PVD at 0959 RPT #:[id number] END OF REPORT 2022-06-22 08:05:00-00:00 [facility] ([facility]) Clinical Note REPORT#:[id number] REPORT STATUS: Signed DATE:06/22/22 TIME: 804 PATIENT: MESERET MOTTA UNIT #: [id number] ROOM/BED: 4421-1 : 56 AGE: 67 SEX: F ATTEND: Nidhi Ashton MD ADM AUTHOR: Jennifer Shelton MD * ALL edits or amendments must be made on the [employer] document * Clinical Note Note: Procedure: Hemodialysis Indication: End-stage renal disease 4 hours 2K potassium QB 350 mL/min Dialysis flow 700 mm/min Ultrafiltration 3 to 4 L if tolerated Electronically Signed by Jennifer Shelton MD on at 0624 RPT #:[id number] END OF REPORT 2022-06-22 07:58:00-00:00 [facility] ([facility]) Nephrology Consultation Note REPORT#:[id number] REPORT STATUS: Signed DATE:06/22/22 TIME: 757 PATIENT: MESERET MOTTA UNIT #: [id number] ROOM/BED: 4421-1 : 56 AGE: 67 SEX: F ATTEND: Nidhi Ashton MD ADM AUTHOR: Jennifer Shelton MD * ALL edits or amendments must be made on the [employer] document * History of Present Illness Requesting clinician: Delmy Ashton Reason for consult: End stage renal disease Chief complaint: Transferred for CABG HPI: Patient seen and evaluated, discussed with care team, 67-year-old female with history of end-stage renal d isease on chronic hemodialysis Sunday, and Sunday, diabetes mellitus, peripheral arterial disease and hypertension who was transferred to [facility] for CABG. Terrence quevedo initially presented to [facility] in [place] compl aining of shortness of breath. Underwent left heart cath which showed diffuse di sease and patient was transferred for evaluation for CABG. renal consult was requ ested for management of her end-stage renal disease/ hemodialysis. History - Adult longitudinal Past medical history: Reports: Coronary artery disease, Diabetes manohar guerrero, Hypertension, Kidney disease/stones. Additional surgical history: Dialysis [...] MG BEDTIME PRN PRN 06/21 1900 AC 08/22 (Melatonin) PO 07/21 Blood Formation,Coagulation Sig/Enedina Start time Last Medication Dose Route Stop Time Status Admin Heparin Sodium 5,000 UNIT ASDIR PRN 06/21 1730 AC 06/22 (HEPARIN 5000 UNITS/ IV 07/21 1729 0240 ML) Heparin Sodium 500 ML ASDIR 06/21 1730 CKD 06/08 4 (Porcine) IV 07/21 172 1847 (HEPARIN 25,000 UNITS/ 1/2NS 500ML) Cardiovascular Drugs Sig/Enedina Start time Last Medication Dose Route Stop Time Status Admin Atorvastatin Calcium 40 MG 2100 06/21 2100 AC 08/22 (LIPITOR) PO 07/21 2058 204 Nitroglycerin 0.4 MG Q5M PRN PRN 06/21 1730 AC (NITROSTAT) SL 07/21 172 Central Nervous System Agents Sig/Enedina Start time Last Medication Dose Route Stop Time Status Admin Aspirin 81 MG C BK 06/22 0800 AC (ASPIRIN) PO 07/22 0759 Morphine Sulfate 2 MG Q4H PRN PRN 06/21 1900 AC 06/22 (morphine SULFATE) IV 06/26 1859 0104 Tramadol HCl 50 MG Q6H PRN PRN 06/21 1900 AC (ULTRAM) PO 06/26 185 Acetaminophen 650 MG Q4H PRN PRN 06/21 1730 AC (TYLENOL) PO 07/21 172 Electrolytic, Caloric, [...] 07/21 2058 Glucagon 1 MG ASDIR PRN 06/21 1900 AC (GLUCAGON) IM 07/21 185 Allergies: Coded Allergies: codeine (06/06/01) DRUG INGREDIENT [...] low FiO2 Mean Ox Delivery Rate 06/22 0344 36.4 74 18 104/68 79.5 [...] Musculoskeletal: no CVA tenderness, no tendernes s Neuro/CHAINST[employer] SE[employer]ING MACHINE OPERATOR: alert, normal speech Skin: dry, intact Results [...] (Auto) (14.0 - 32.0 %) 7.8 L [place] % (Auto) (4.8 - 9.0 %) 9.0 Eos % (Auto) (0.3 - 3.7 %) 1.5 Baso % (Auto) (0.0 - 2.0 %) 0.2 Neut # (Auto) (2.0 - 7.6 x10 3/uL) 10.58 H Lymph # (Auto) (1.0 - 3.8 x10 3/uL) 1.02 [place] # (Auto) (0.1 - 0.8 x10 3/uL) [...] Jennifer Shelton MD on at 1003 RPT #:[id number] END OF REPORT 2022-06-21 17:40:00-00:00 [facility] ([facility]) Cardiothoracic Surgery Consult REPORT#:[id number] REPORT STATUS: Signed DATE:06/21/22 TIME: 1739 PATIENT: MESERET MOTTA UNIT #: [id number] ROOM/BED: [place] [address] : 56 AGE: 67 SEX: F ATTEND: Adonis Gaytan MD ADM AUTHOR: Aleja Funk * ALL edits or amendments must be made on the [employer]/computer document * Aleja Funk 06/21/221739: History of Present Illness HPI Chief complaint: [...] her peripheral vascular disease. She presented to [facility] in [place] with complaints of dysnea on exertion and res t. Review of her records from previous hospital admission show elevated troponin with a peak of 5600. She underwent left heart catheterization which s howed multivessel coronary artery disease and subsequen tly transferred to [facility] for evaluation for coronary artery bypass surgery. [...] anterior feet. Musculoskeletal: full range of motion Neuro/CHAINSTITCH SEWING MACHINE OPERATOR: alert, oriented X 3 Results Findings/Data: Laboratory [...] (Auto) (14.0 - 32.0 %) 7.8 L [place] % (Auto) (4.8 - 9.0 %) 9.0 Eos % (Auto) (0.3 - 3.7 %) 1.5 Baso % (Auto) (0.0 - 2.0 %) 0.2 Neut # (Auto) (2.0 - 7.6 x10 3/uL) 10.58 H Lymph # (Auto) (1.0 - 3.8 x10 3/uL) 1.02 [place] # (Auto) (0.1 - 0.8 x10 3/uL) [...] her peripheral vascular disease. She presented to [facility] in [place] with complaints of dyspnea on exe rtion and rest. Review of her records from previous hospital admission show elevated troponin with a peak of 5600. She underwent left heart catheterization which s howed multivessel coronary artery disease and subsequen tly transferred to [facility] for evaluation for coronary artery bypass surgery. [...] coronary artery disease. Patient was transferred to [facility] for surgical evaluation. Patient is a [...] 1 08/23/21 at 0833 at 1546 RPT #:[id number] END OF REPORT 2022-06-21 17:29:00-00:00 [facility] ([facility]) Hospitalist History Physical REPORT#:[id number] REPORT STATUS: Signed DATE:06/21/22 TIME: 172 PATIENT: MESERET MOTTA UNIT #: [id number] ROOM/BED: [place] [address] : 56 AGE: 67 SEX: F ATTEND: Nidhi Ashton MD ADM AUTHOR: Steffen Olvera MD * ALL edits or amendments must be made on the [employer]/computer document * History of Present Illness HPI Chief complaint: Three-vessel disease HPI: 67-year-old female with history of end-stage asya al disease on hemodialysis, hypertension, diabetes, hypothyroidism transferr ed from [facility] for evaluation for CABG. Patient prese nted here 1 week ago with complaints of shortness of breath and lower extr emity edema. During hospital stay she was found to have l iver congestion secondary to CHF. Echo showed EF 50 %. She underwent cardiac catheterization on 06/08 which showed 80% to 90% mid LAD [...] ppx;Heparin Electronically Signed by Steffen Olvera MD 06/22/22 at 1414 RPT #:[id number] END OF REPORT
[2023-03-05 10:38] LABS: Absolute Lymphocytes (CBC) 0.7 K/uL (0.7-4.9); Hematocrit 20.2 % (36.0-45.0); Lymphocytes % 6.9 % (15.3-44.8); MCV 88.2 fL (80-100); MPV 6.4 fL (7.6-11.3); Platelets 192 thou/uL (152-406); RBC Red Blood Cell Count 2.29 M/uL (3.86-4.86)
[2023-03-05 10:52] LABS: SARS-CoV-2 Antigen Rapid Res Negative (Negative)
[2023-03-05 10:54] LABS: Protime INR 1.15
[2023-03-05 10:55] LABS: Albumin 2.8 g/dL (3.4-5.0); Bilirubin Total 1.1 mg/dL (0.2-1.0); Potassium 3.5 mEq/L (3.5-5.1); Protein, Total 7.4 g/dL (6.4-8.2)
--- NOTE | 2023-03-05 11:18 | RAD REPORT ---
EXAM DESCRIPTION: RAD - Knee Right 3 View - 03/05/2023 11:05 am CLINICAL HISTORY: Pain;Swelling COMPARISON: Knee Right 2 View dated 01/29/2023 TECHNIQUE: Right knee, 3 views. FINDINGS: No fracture, dislocation or periosteal reaction.No joint effusion seen. Right total knee a rthroplasty hardware in satisfactory alignment. Mild soft tissue swelling anteriorly. Vascular calcif ications. Clinical concerns for internal derangement or occult bony injury could be further assessed with MR im aging. IMPRESSION: No acute osseus abnormality. Uncomplicated appearance of right knee arthroplasty. Mild s oft tissue swelling anteriorly.
--- NOTE | 2023-03-05 11:20 | RAD REPORT ---
EXAM DESCRIPTION: RADChest Single View03/05/2023 11:05 am CLINICAL HISTORY: ESRD, chills COMPARISON: Chest Single View dated 01/30/2023; Chest Single View dated 11/22/2022; Chest Single View dated 11/21/2022; Chest Single View dated 10/12/2022 TECHNIQUE: Portable AP view of the chest. FINDINGS: The lungs show no new focal opacities. Right IJ dialysis catheter unchanged in position. C entral interstitial prominence, stable, with improved aeration at the lung bases. No pneumothorax or effusion. The cardiomediastinal contours are unremarkable. IMPRESSION: Stable central interstitial prominence, could reflect mild central congestion or edema.
--- NOTE | 2023-03-05 12:12 | EKG ---
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
[2023-03-05] MEDS ORDERED: LIDOCAINE 1% MPF 5 ML VIAL ONE (13:50)
[2023-03-05] MEDS ORDERED: HYDROCODONE/APAP 5/325 MG TAB ONE (13:51)
[2023-03-05 16:29] LABS: Appearance VERY TURBID (CLEAR); Body Fluid Source SYNOVIAL; Color of fluid Orange (COLORLESS)
[2023-03-05 16:30] LABS: Body Fluid WBC 118925 /mm^3
--- NOTE | 2023-03-05 17:01 | EDPHYS ---
Physician Documentation [facility] Name: Meseret Gallego Age: 68 yrs Sex: Female : 1955 Arrival Date: 03/05/2023 Time: 09:57 Bed 14 Private MD: ED Physician Marcel Sykes HPI: 03/05 15:07 This 68 yrs old Female presents to ER via EMS with complaints of Doesn't Feel Right. rn 15:07 Pt reports itching, subjective facial swelling, woke up with those symptoms and rn improved after benadryl. No new medication. Reports months of right knee pain, but increased swelling and pain for the last week. No fever. Reports recent sepsis with wounds to leg and hand, completed abx, wants to make sure she doesn't have another infection. . Onset: The symptoms/episode began/occurred 1 week(s) ago. Severity of symptoms: At their worst the symptoms were mild in the emergency department the symptoms are unchanged. The patient has experienced similar episodes in the past. The patient has been recently seen by a physician:. Historical: - Allergies: 09:58 Codeine; aa5 09:58 Phenergan; aa5 09:58 Tape; aa5 - PMHx: 09:58 Diabetes - IDDM; Dialysis; Hypercholesterolemia; Hypertension; Hypothyroidism; aa5 Myocardial infarction; - PSHx: 09:58 2 heart stents; back; section; knee; neck; aa5 - Immunization history:: Adult Immunizations up to date. - Social history:: Smoking status: Patient denies any tobacco usage or history of. - Family history:: not pertinent. - Hospitalizations: : Patient was recently seen at. ROS: 15:07 Constitutional: Negative for fever, chills, and weight loss, Eyes: Negative for injury, rn pain, redness, and discharge, ENT: Negative for injury, pain, and discharge, Neck: Negative for injury, pain, and swelling, Cardiovascular: Negative for chest pain, palpitations, and edema, Respiratory: Negative for shortness of breath, cough, wheezing, and pleuritic chest pain, Abdomen/GI: Negative for abdominal pain, nausea, vomiting, diarrhea, and constipation, Back: Negative for injury and pain, MS/Extremity: + right knee pain and swelling Skin: Negative for injury, rash, and discoloration, Neuro: + generalized weakness Exam: 13:31 ECG was reviewed by the Attending Physician. rn 15:07 Constitutional: This is a well developed, well nourished patient who is awake, alert, rn and in no acute distress. Head/Face: Normocephalic, atraumatic. Cardiovascular: Regular rate and rhythm. No pulse deficits. Respiratory: No increased work of breathing, no retractions or nasal flaring. Abdomen/GI: soft, non-tender Skin: Warm, dry MS/ Extremity: Pulses equal, no cyanosis. Neurovascular intact. + painful ROM right knee with knee effusion/swelling, mild warmth, no open wounds. Neuro: Awake and alert, GCS 15 Vital Signs: 09:58 BP 106 / 61; Pulse 94; Resp 20 S; Temp 98.1(O); Pulse Ox 98% on 2 lpm NC; aa5 10:31 Weight 82.55 kg; Height 5 ft. 6 in. ; rs5 10:31 BP 137 / 74; Pulse 92; Resp 17; Temp 98.1(O); Pulse Ox 97% on 2 lpm NC; rs5 11:30 BP 155 / 87; Pulse 93; Resp 18; Pulse Ox 99% on 2 lpm NC; rs5 12:20 BP 127 / 73; Pulse 74; Resp 16 S; Pulse Ox 98% on 2 lpm NC; aa5 13:00 BP 118 / 55; Pulse 89; Resp 16 S; Pulse Ox 98% on 2 lpm NC; aa5 14:17 BP 114 / 58; Pulse 92; Resp 14 S; Pulse Ox 96% on 2 lpm NC; aa5 15:45 BP 131 / 64; Pulse 96; Resp 18 S; Pulse Ox 99% on 2 lpm NC; aa5 16:06 BP 133 / 59; Pulse 95; Resp 17 S; Pulse Ox 97% on 2 lpm NC; aa5 16:20 BP 122 / 71; Pulse 95; Resp 16 S; Pulse Ox 97% on R/A; aa5 17:00 BP 127 / 59; Pulse 97; Resp 17 S; Pulse Ox 96% on 2 lpm NC; aa5 17:20 BP 102 / 87; Pulse 99; Resp 15 S; Pulse Ox 96% on 2 lpm NC; aa5 17:40 BP 124 / 74; Pulse 97; Resp 16 S; Pulse Ox 100% on 2 lpm NC; aa5 18:00 BP 119 / 58; Pulse 94; Resp 16 S; Pulse Ox 100% on 2 lpm NC; aa5 18:20 BP 141 / 96; Pulse 103; Resp 18 S; Pulse Ox 100% on 2 lpm NC; aa5 19:28 BP 129 / 98; Pulse 99; Resp 17 S; Pulse Ox 98% on 2 lpm NC; jw7 10:31 Body Mass Index 29.38 (82.55 kg, 167.64 cm) rs5 Procedures: 14:58 Joint Treatment: Aspiration of right knee using 18 gauge needle, Removed 2 ml's of rn cloudy fluid, bloody fluid, Specimen sent to lab. Dressed with 4x4s, Patient tolerated well. Performed after 3cc lidocaine without epi administered locally. . MDM: 10:04 Patient medically screened. rn 16:06 ED course: Called to bedside after patient accidentally pulled out dialysis catheter rn from right chest wall. Patient found sitting upright with steady blood coming out of catheter stoma. Pressure applied immediately and nurse to hold pressure for atleast 30 minute. No hypotension and bleeding appears controlled. . 16:42 ED course: bleeding has improved, but still slow bleed. Fluid analysis shows possible rn septic arthritis right knee, will have to transfer for both ortho and needs new dialysis catheter. 17:00 Differential Diagnosis knee infection, covid, flu, ESRD, chronic illness. Data rn reviewed: vital signs, nurses notes, lab test result(s), radiologic studies, plain films, and as a result, I will admit patient. Consideration of Admission/Observation Patient was admitted/placed on observation. Escalation of care including admission/observation considered. Counseling: I had a detailed discussion with the patient and/or guardian regarding the historical points, exam findings, and any diagnostic results supporting the discharge/admit diagnosis, lab results, radiology results, the need for further work-up and treatment in the hospital, the need to transfer to another facility, for higher level of care, [facility] does not immediately have the required specialist. 17:01 ED course: Consulted with Dr. Paredes regarding displaced dialysis catheter, wants rn pressure held above and below clavicle. 18:25 ED course: Bleeding stopped, monitored for a while, no further bleeding, no change in rn CXR other than displaced catheter, wound dressed and stable, patient feels much better, smiling, normotensive and ready for discharge. . 03/05 10:04 Order name: Blood Culture Adult (2) rn 03/05 10:04 Order name: CBC with Diff; Complete Time: 11:22 rn 03/05 10:04 Order name: CMP; Complete Time: 11: rn 03/05 10:04 Order name: Lactate w/ 2H reflex if indic.; Complete Time: 11: rn 03/05 10:04 Order name: Protime (+inr); Complete Time: 11: rn 03/05 10:04 Order name: Ptt, Activated; Complete Time: 11: rn 03/05 10:04 Order name: SARS RAPID; Complete Time: 11: rn 03/05 10:04 Order name: Flu; Complete Time: : rn 03/05 10:46 Order name: Glucose, Ancillary Testing; Complete Time: 11:22 EDMS 03/05 14:45 Order name: Fluid Cell Count,Body; Complete Time: 17:58 rn 03/05 14:45 Order name: Fluid Crystals; Complete Time: 16:30 rn 03/05 14:45 Order name: Body Fluid Culture rn 03/05 10:04 Order name: Chest Single View XRAY; Complete Time: 11: rn 03/05 10:04 Order name: XRAY Knee RIGHT 3 view; Complete Time: 11: rn 03/05 16:46 Order name: XRAY Chest (1 view); Complete Time: 17:58 rn 03/05 10:04 Order name: EKG; Complete Time: 10:08 rn 03/05 10:04 Order name: Accucheck; Complete Time: 10:44 rn 03/05 10:04 Order name: Cardiac monitoring; Complete Time: 11:24 rn 03/05 10:04 Order name: EKG - Nurse/Tech; Complete Time: 11:24 rn 03/05 10:04 Order name: IV Saline Lock - Large Bore; Complete Time: 10:32 rn 03/05 10:04 Order name: Labs collected and sent; Complete Time: 10:03/05 10:04 Order name: O2 Per Protocol; Complete Time: 10:32 03/05 10:04 Order name: O2 Sat Monitoring; Complete Time: :03/05 10:04 Order name: Vital Signs; Complete Time: 10:32 rn 03/05 13:31 Order name: Surgical Consent: consent for knee aspiration; Complete Time: 13:48 rn EC:31 Rate is 94 beats/min. Rhythm is regular. QRS [place] is Normal. WA interval is normal. QRS rn interval is normal. QT interval is normal. No Q waves. T waves are Normal. No ST changes noted. Clinical impression: NSR w/ Non-specific ST/T Changes. Interpreted by me. Reviewed by me. Administered Medications: 13:45 Drug: HYDROcodone-acetaminophen PO 5 mg-325 mg 1 tabs Route: PO; rs5 14:10 Follow up: Response: No adverse reaction rs5 14:10 Drug: Lidocaine Infiltration (1 %) 1 vials Volume: 5 ml; Route: Infiltration; rs5 20:50 Follow up: Response: No adverse reaction jw7 17:50 Drug: Cefepime IVPB 1 grams Route: IVPB; Rate: 200 ml/hr; Infused Over: 30 mins; Site: aa5 right forearm; 18:20 Follow up: Response: No adverse reaction; IV Status: Completed infusion aa5 18:30 Drug: vancoMYCIN IVPB 1 grams Route: IVPB; Infused Over: 2 hrs; Site: right forearm; aa5 18:40 Follow up: Response: No adverse reaction aa5 Point of Care Testing: Blood Glucose: 10:31 Blood Glucose: 161 mg/dL; rs5 Ranges: Critical Glucose Levels:Adult <50 mg/dl or >400 mg/dl <40 mg/dl or >180 mg/dl Disposition Summary: 03/05/23 17:01 Transfer Ordered Transfer Location: [facility] rn Reason: Higher level of care rn Condition: Stable rn Problem: new rn Symptoms: have improved rn Accepting Physician: (03/05/23 20:49) jw7 Diagnosis - Septic arthritis, right knee rn - Displacement of vascular dialysis catheter, initial encounter rn - End stage renal disease rn Forms: - Medication Reconciliation Form rn - SBAR form rn anesthesiology time excluding procedures: 17:00 Critical care time: Bedside Care: 35 minutes, Consultation: 5 minutes. Total time: 40 rn minutes Signatures: Dispatcher [employer] EDMarcel Garcia MD MD rn Calderon, Audri, RN RN aa5 Brenda Thompson RN RN jw7 Davis Dsouza RN RN rs5 Corrections: (The following items were deleted from the chart) 20:49 17:01 Dr. belle jw7
--- NOTE | 2023-03-05 17:01 | ER ---
Nurse's Notes [facility] Name: Meseret Gallego Age: 68 yrs Sex: Female : 1955 Arrival Date: 03/05/2023 Time: 09:57 Bed 14 Private MD: Diagnosis: Septic arthritis, right knee;Displacement of vascular dialysis catheter, initial encounter;End stage renal disease Presentation: 03/05 09:58 Chief complaint: Patient states: "I just woke up today with my face feeling itchy, a aa5 nose bleed, and then I started shaking and I've had sepsis before so I know it starts with me shaking". 09:58 Coronavirus screen: At this time, the client does not indicate any symptoms associated aa5 with coronavirus-19. Ebola Screen: Patient denies travel to an Ebola-affected area in the 21 days before illness onset. Initial Sepsis Screen: Does the patient meet any 2 criteria? HR > 90 bpm. Does the patient have a suspected source of infection? No. Patient's initial sepsis screen is negative. Risk Assessment: Do you want to hurt yourself or someone else? Patient reports no desire to harm self or others. Onset of symptoms was March 05, 2023. 09:58 Acuity: CHRISTOPHER 3 aa5 09:58 Method Of Arrival: EMS: [facility] aa5 Historical: - Allergies: 09:58 Codeine; aa5 09:58 Phenergan; aa5 09:58 Tape; aa5 - PMHx: 09:58 Diabetes - IDDM; Dialysis; Hypercholesterolemia; Hypertension; Hypothyroidism; aa5 Myocardial infarction; - PSHx: 09:58 2 heart stents; back; section; knee; neck; aa5 - Immunization history:: Adult Immunizations up to date. - Social history:: Smoking status: Patient denies any tobacco usage or history of. - Family history:: not pertinent. - Hospitalizations: : Patient was recently seen at. Screenin:05 [facility] ED Fall Risk Assessment (Adult) History of falling in the last 3 months, rs5 including since admission No falls in past 3 months (0 pts) Confusion or Disorientation No (0 pts) Intoxicated or Sedated No (0 pts) Impaired Gait No (0 pts) Mobility Assist Device Used No (0 pt) Altered Elimination No (0 pt) Score/Fall Risk Level 0 - 2 = Low Risk Oriented to surroundings, Maintained a safe environment. 10:05 Abuse screen: Denies threats or abuse. Nutritional screening: No deficits noted. rs5 Tuberculosis screening: No symptoms or risk factors identified. Assessment: 10:05 General: Appears in no apparent distress. uncomfortable, Behavior is calm, cooperative. rs5 10:05 General: Pt reports chills. Pt reports "I've had sepsis before and every time I do it rs5 starts with chills ". Pain: Complains of pain in right knee Pain does not radiate. Pain currently is 2 out of 10 on a pain scale. at worst was 7 out of 10 on a pain scale. Quality of pain is described as aching, Pain began pt states, "the pains gradually been worsening over the past few months" Aggravated by repositioning, weight bearing. Neuro: Level of Consciousness is awake, alert, obeys commands, Oriented to person, place, time, situation. Cardiovascular: Heart tones S1 S2 present Rhythm is regular. Respiratory: Airway is patent Respiratory effort is even, unlabored, Respiratory pattern is regular, symmetrical. GI: Abdomen is round non-distended, Bowel sounds present X 4 quads. Abd is soft and non tender X 4 quads. : No signs and/or symptoms were reported regarding the genitourinary system. EENT: No signs and/or symptoms were reported regarding the EENT system. Derm: Skin is pink, warm \\T\\ dry. Pt reports chills. Dialysis access site noted to right upper chest. Musculoskeletal: Amputation of left middle finger. Reports "my left middle finger was amputated one month ago, I had wound care on it this morning". Injury Description: surgery to right heel. Pt states "I had surgery on my right heel a ten months ago due to infection, I had wound care on this this morning" wound vac and tubing to right heel noted. 10:55 Reassessment: Patient and/or family updated on plan of care and expected duration. Pain rs5 level reassessed. Patient is alert, oriented x 3, equal unlabored respirations, skin warm/dry/pink. Pt reports chills. Pt reports "I'm still having chills but they aren't as bad as they were when I came in." Provider notified.. 10:55 Derm: Skin is pink, warm \\T\\ dry. rs5 12:00 Reassessment: No changes from previously documented assessment. Patient is alert, rs5 oriented x 3, equal unlabored respirations, skin warm/dry/pink. Pt reports hunger. Crackers and juice at beside. 13:00 Reassessment: Patient and/or family updated on plan of care and expected duration. Pain rs5 level reassessed. Patient is alert, oriented x 3, equal unlabored respirations, skin warm/dry/pink. Pt reports chills. 13:20 Reassessment: Patient and/or family updated on plan of care and expected duration. Pain rs5 level reassessed. Pain: Complains of pain in right knee pain Pain does not radiate. Pain currently is 8 out of 10 on a pain scale. Quality of pain is described as aching, Aggravated by repositioning. 13:45 Reassessment: Consent form for right knee aspiration signed by pt. rs5 14:10 Reassessment: Patient and/or family updated on plan of care and expected duration. Pain rs5 level reassessed. Patient states feeling better. 14:10 Pain: Complains of pain in right knee pain Pain does not radiate. Pain currently is 5 rs5 out of 10 on a pain scale. Quality of pain is described as aching. 15:33 Reassessment: Responded to pt's call for help. Bleeding noted to dialysis catheter site rs5 on right upper chest. Catheter was dislodged and on the floor. Pt states, "I don't know what happened, I think I pulled it out!" Direct pressure applied and called for help. 15:34 Reassessment: MD at bedside . aa5 15:43 Reassessment: PERRI Castelan at bedside holding direct pressure to Dialysis catheter site. aa5 . 15:43 Neuro: Level of Consciousness is awake, alert, obeys commands, Oriented to person, aa5 place, time, situation. Respiratory: Airway is patent Respiratory effort is even, unlabored, Respiratory pattern is regular, symmetrical. Derm: Skin is dry, Skin is pale, Skin temperature is warm. 15:43 Reassessment: at bedside. . aa5 16:10 Reassessment: Perri Castelan remains at bedside holding pressure to Dialysis catheter aa5 site. . 17:00 Reassessment: PERRI Castelan remains at bedside holding pressure to site per VO. . aa5 17:24 Reassessment: x-ray at bedside . aa5 18:33 Reassessment: MD states to stop direct pressure to dialysis catheter site and to apply aa5 pressure by pressure dressing. Site with gauze in place and pressure dressing applied. Clean gown applied. . 18:33 Neuro: Level of Consciousness is awake, alert, obeys commands, Oriented to person, aa5 place, time, situation. Respiratory: Airway is patent Respiratory effort is even, unlabored, Respiratory pattern is regular, symmetrical. Derm: Skin is dry, Skin is pale, Skin temperature is warm. 19:27 Reassessment: No changes from previously documented assessment. Patient and/or family jw7 updated on plan of care and expected duration. Pain level reassessed. Patient is alert, oriented x 3, equal unlabored respirations, skin warm/dry/pink. 20:30 General: attempted to give report, nurse is busy. jw7 20:37 General: attempted to call report, no answer. jw7 20:47 General: attempted to call report, no answer. jw7 Vital Signs: 09:58 BP 106 / 61; Pulse 94; Resp 20 S; Temp 98.1(O); Pulse Ox 98% on 2 lpm NC; aa5 10:31 Weight 82.55 kg; Height 5 ft. 6 in. ; rs5 10:31 BP 137 / 74; Pulse 92; Resp 17; Temp 98.1(O); Pulse Ox 97% on 2 lpm NC; rs5 11:30 BP 155 / 87; Pulse 93; Resp 18; Pulse Ox 99% on 2 lpm NC; rs5 12:20 BP 127 / 73; Pulse 74; Resp 16 S; Pulse Ox 98% on 2 lpm NC; aa5 13:00 BP 118 / 55; Pulse 89; Resp 16 S; Pulse Ox 98% on 2 lpm NC; aa5 14:17 BP 114 / 58; Pulse 92; Resp 14 S; Pulse Ox 96% on 2 lpm NC; aa5 15:45 BP 131 / 64; Pulse 96; Resp 18 S; Pulse Ox 99% on 2 lpm NC; aa5 16:06 BP 133 / 59; Pulse 95; Resp 17 S; Pulse Ox 97% on 2 lpm NC; aa5 16:20 BP 122 / 71; Pulse 95; Resp 16 S; Pulse Ox 97% on R/A; aa5 17:00 BP 127 / 59; Pulse 97; Resp 17 S; Pulse Ox 96% on 2 lpm NC; aa5 17:20 BP 102 / 87; Pulse 99; Resp 15 S; Pulse Ox 96% on 2 lpm NC; aa5 17:40 BP 124 / 74; Pulse 97; Resp 16 S; Pulse Ox 100% on 2 lpm NC; aa5 18:00 BP 119 / 58; Pulse 94; Resp 16 S; Pulse Ox 100% on 2 lpm NC; aa5 18:20 BP 141 / 96; Pulse 103; Resp 18 S; Pulse Ox 100% on 2 lpm NC; aa5 19:28 BP 129 / 98; Pulse 99; Resp 17 S; Pulse Ox 98% on 2 lpm NC; jw7 10:31 Body Mass Index 29.38 (82.55 kg, 167.64 cm) rs5 ED Course: 09:58 Patient arrived in ED. aa5 09:58 Arm band placed on Patient placed in an exam room, on a stretcher. aa5 10:04 Marcel Sykes MD is Attending Physician. rn 10:05 Patient has correct armband on for positive identification. Placed in gown. Bed in low rs5 position. Call light in reach. Side rails up X 1. 10:16 Triage completed. aa5 10:17 Davis Dsouza, RN is Primary Nurse. rs5 10:20 Inserted saline lock: 20 gauge in right forearm, using aseptic technique. Blood rs5 collected. 10:35 Missed attempt(s): 20 gauge in left antecubital area. rs5 11:07 Chest Single View XRAY In Process Unspecified. EDMS 11:07 XRAY Knee RIGHT 3 view In Process Unspecified. EDMS 13:45 Provided Education on: Procedure Consent, right knee aspiration. rs5 16:55 Rosie initiated transfer to [facility], spoke with Tracie Montemayor. wm 17:51 XRAY Chest (1 view) In Process Unspecified. EDMS 19:00 Report given to PERRI Bahena. aa5 19:20 Pt accepted for transfer by [facility] RM: [id number] by Chet Medina \\T\\ [id number] per Tracie Montemayor. wm 19:20 [facility] accepted Pt for transport, ETA 1940. wm 20:48 No provider procedures requiring assistance completed. Patient transferred, IV remains jw7 in place. 21:27 Tracie from [facility] transfer center called to state Pt will now be going to [id number], no wm need to do new MOT per Tracie, and Pt had already left the ER. Administered Medications: 13:45 Drug: HYDROcodone-acetaminophen PO 5 mg-325 mg 1 tabs Route: PO; rs5 14:10 Follow up: Response: No adverse reaction rs5 14:10 Drug: Lidocaine Infiltration (1 %) 1 vials Volume: 5 ml; Route: Infiltration; rs5 20:50 Follow up: Response: No adverse reaction jw7 17:50 Drug: Cefepime IVPB 1 grams Route: IVPB; Rate: 200 ml/hr; Infused Over: 30 mins; Site: aa5 right forearm; 18:20 Follow up: Response: No adverse reaction; IV Status: Completed infusion aa5 18:30 Drug: vancoMYCIN IVPB 1 grams Route: IVPB; Infused Over: 2 hrs; Site: right forearm; aa5 18:40 Follow up: Response: No adverse reaction aa5 Medication: 20:49 VIS not applicable for this client. jw7 Point of Care Testing: Blood Glucose: 10:31 Blood Glucose: 161 mg/dL; rs5 Ranges: Outcome: 17:01 ER care complete, transfer ordered by . rn 20:48 Transferred by ground EMS to [facility]. jw7 20:48 Condition: stable 20:48 Instructed on the need for transfer, Demonstrated understanding of instructions. 20:49 Patient left the ED. jw7 Signatures: Dispatcher [employer] EDMS Marcel Sykes MD MD rn Calderon, Audri RN RN aa5 Jigna Eddy Brenda Thompson RN RN jw7 Davis Dsouza RN RN rs5 Corrections: (The following items were deleted from the chart) 18:44 18:33 Reassessment: states to stop direct pressure to dialysis catheter site and to aa5 apply pressure by pressure dressing. Site with gauze in place and pressure dressing applied. . aa5 18:50 10:05 Derm: Skin is pink, warm \\T\\ dry. Pt reports chills rs5 rs5 19:06 19:01 Lidocaine Infiltration (1 %) 1 vials 5 ml Infiltration rs5 rs5 03/06 00:26 03/05 19:20 Pt accepted for transfer by Chet Medina \\T\\ [id number] per Tracie Montemayor. wm wm
[2023-03-05] MEDS ORDERED: VANCOMYCIN 1 GM/VIAL ONE (17:44)
[2023-03-05] MEDS ORDERED: NA CHLORIDE 0.9% 250 ML ONE (17:44)
[2023-03-05] MEDS ORDERED: NA CHLORIDE 0.9% 100 ML ONE (17:44)
[2023-03-05] MEDS ORDERED: CEFEPIME 1 GM/VIAL ONE (17:45)
--- NOTE | 2023-03-05 17:57 | RAD REPORT ---
EXAM DESCRIPTION: RAD - Chest Single View - 03/05/2023 5:49 pm CLINICAL HISTORY: DYSPNEA Chest pain. COMPARISON: Chest Single View dated 03/05/2023; Chest Single View dated 01/30/2023; Chest Single View dated 11/22/2022; Chest Single View dated 11/21/2022 FINDINGS: Portable technique limits examination quality. Moderate bilateral pulmonary opacities are present which may represent pulmonary edema or pneumonia. The heart is mildly to moderately enlarged. No displaced fractures.Cervical spine hardware. IMPRESSION: Moderate volume overload suspected.
[2023-03-05 22:36] VITALS: TEMP 98.1
[2023-03-05 22:54] VITALS: BP 129/98; O2SAT 98
== END 2023-03-05 20:49 | disposition short-term general hospital (02) ==
LOC: ER 09:57
PROC: 0S9C3ZX Drainage of Right Knee Joint, Percutaneous Approach, Diagnostic (ICD-10-PCS; principal; 2023-03-05)
DX: M00.861 Arthritis due to other bacteria, right knee (principal); T82.42XA Displacement of vascular dialysis catheter, initial encounter; E11.22 Type 2 diabetes mellitus with diabetic chronic kidney disease; I12.0 Hypertensive chronic kidney disease with stage 5 chronic kidney disease or end stage renal disease; N18.6 End stage renal disease; Z99.2 Dependence on renal dialysis; Z20.822 Contact with and (suspected) exposure to COVID-19; Z88.5 Allergy status to narcotic agent; Z88.8 Allergy status to other drugs, medicaments and biological substances; Z91.048 Other nonmedicinal substance allergy status
CPT/HCPCS: 96365; 93005; 87040 ×2; 87070; 85025; 36415; 89050; 85610; 82947; 83605; 85730; 80053; 89060; 87804 ×2; 71045 ×2; 73562; 96375; 99285; 87811; 10021; J2001; J7050; J0692; 87077; 87186

== ENCOUNTER 2023-04-22 12:48 | Inpatient (IN) | payer OTHER ==
--- OUTSIDE RECORDS SUMMARY | 2023-04-22 13:16 | XMS REPORT | Continuity of Care Document ---
:1955 Author Organization [facility] t Address [address] [facility] [address] [place] [id number] Care Team Providers Name Role Phone DANN MORA KARIN Primary Care Physician Unavailable Dann Mora Attending Clinician Unavailable LANCE TRAVIS Attending Clinician Unavailable DRISS CAPPS Attending Clinician Unavailable JULIA GRADY Attending Clinician Unavailable DANIEL HAMILTON Attending Clinician Unavailable DINAH BURNS Attending Clinician Unavailable SHIRA ROBB Attending Clinician Unavailable BROOKLYN MACHADO Attending Clinician Unavailable REZA GEORGE Attending Clinician Unavailable SEUN DOYLE Attending Clinician Unavailable CAM MCLAIN Attending Clinician Unavailable [id number] Attending Clinician Unavailable Forest Schmid Attending Clinician Unavailable Joaquín Rubio Attending Clinician Unavailable Alexandra Arrieta Attending Clinician Unavailable FAUSTO MORAES Attending Clinician Unavailable ELÍAS MAYER Attending Clinician Unavailable ADAIR AKBAR Attending Clinician Unavailable MATTHEW RYAN Attending Clinician Unavailable MICHAELA HOLBROOK Attending Clinician Unavailable ANDREW MALCOLM Attending Clinician Unavailable RALPH SANTANA Attending Clinician Unavailable JEFRY STEWART Attending Clinician Unavailable KEITH RUBIO Attending Clinician Unavailable THOR LAI Attending Clinician Unavailable Trey RAYO, Ivan Guy Attending Clinician Unavailable Doctor Unassigned, [place] Attending Clinician Unavailable BROOKLYN URBAN Attending Clinician Unavailable Luis Armando DOWD, Sarahy Rivers Attending Clinician Liya BURROUGHS, Tavo Attending Clinician Fina BURROUGHS, Duke Attending Clinician Brooklyn Urban DO Attending Clinician Essence BURROUGHS, Leyla Attending Clinician Daija Ruiz RN Attending Clinician Unavailable Cori ARIAS, Katherin Angulo Attending Clinician Adonis Gaytan Attending Clinician Unavailable Jose Becker MD Attending Clinician Benjie BURROUGHS, Reji Baldwin Attending Clinician Zenia ARIAS, Ce Attending Clinician CARSON IVERSON Attending Clinician Unavailable Yvan BURROUGHS, Jory Nguyen Attending Clinician [phone] Mao HEEL BUILDER, Corrina To Attending Clinician [phone] Funmi Allen MA Attending Clinician Unavailable Tai Calderón Attending Clinician Unavailable Angel Mas Attending Clinician Unavailable Farhan Michel Attending Clinician Maya Valdez MA Attending Clinician Unavailable Fausto Moraes MD Attending Clinician Pob, [facility] Main Attending Clinician Unavailable Only, Adc Test Attending Clinician Unavailable SUSAN WHITE Attending Clinician Unavailable MD TUSHAR REYES Attending Clinician Unavailable TUSHAR REYES Attending Clinician Unavailable Ralph Christensen CRNA Attending Clinician Sly BURROUGHS, Tracy Attending Clinician BO CARTER Attending Clinician Unavailable REZA GEORGE Admitting Clinician Unavailable BRAD ARRIAGA Admitting Clinician Unavailable [id number] Admitting Clinician Unavailable Forest Schmid Admitting Clinician [...] Policy Number Effective Date Expiration Date S ource HU[employer] MEDICARE [id number] 2021 ADV 00:00:00 HUMM HUMM [id number] WELLMED/AARP [id number] 2020 MCARE ADV 00:00:00 CHOICE PPO MEDICARE PART A [id number] 2020 \\T\\ B 00:00:00 HUMANA MEDICARE 53 [id number] 2021 Common Sp rachelle 00:00:00 [facility] Problems Condition Condition Condition Status Onset [...] Active Unive rs troponin I troponin I 12-15 it y of level level 00:00: [place] 00 Medical Branch Elevated Elevated Disease Active Unive rs brain brain - ity of [place] [...] Added automatic ally from request for surgery [id number] ESRD (end ESRD (end Disease Active 2019-07 [...] of joint d 22:23:46 l (disorder) (disorder) Pepe tran Resolved Problem 08/25/20212018 [facility] Fistula of [...] l Active Lewis Problem 08/25/2021 [facility] [id number] Unsteady Problem Commo n gait Spirit - [facility] Arrhythmia Arrhythmia Problem C ommon Spirit - [facility] [id number] Retinopath Problem Com mon y Spirit - [facility] [id number] Seasonal Problem Comm on allergies Spirit - [facility] [id number] PUD Problem Common (peptic Spirit ulcer - CHI disease) [facility] [id number] Body mass Problem Com mon index Spirit [BMI] - CHI 38.0-38.9, [facility] [id number] Diabetic Problem Comm on polyneurop Spirit athy - CHI associated St with type [facility] 2 diabetes Medica l mellitus Center [id number] Morbid Problem Commo n 9104 (severe) Spirit obesity - CHI due to [facility] excess [facility] [id number] Type 2 Problem Common diabetes Spirit mellitus - [facility]I with diabetic [facility] chronic Medical kidney Center disease Secondary Secondary Problem Com mon hyperparat hyperparat Sp rachelle hyroidism hyroidism, - C HI not St elsewhere [facility] classified Medica l [place] Athscl Athscl Problem Common [place] Spirit arteries arteries - [facility]I of of [...] (congestiv e heart [facility] failure) [facility] [id number] Stented Problem Commo n coronary [facility] artery [facility] [id number] PAD Problem Common (periphera [facility] l artery - [facility] disease) [facility] [id number] Coronary Problem Commo n artery [facility] disease [facility] involving [facility] coronary Medical artery of [place] heart, unspecifie d whether angina present [id number] Oxygen Problem Commo n 07 dependent [facility] [id number] Anemia in Problem Com mon chronic [facility] illness [facility] Allergic Non-season Problem Com mon rhinitis al [facility] allergic [facility], [facility] , unspecifie d trigger Dependence Dialysis Problem Com mon on renal patient [facility] dialysis [facility] Anxiety Anxiety Problem Common about about [facility] [id number] End stage Problem Comm on renal [facility] disease [facility] Hypothyroi Hypothyroi Problem C ommon dism dism [facility] Indwelling Indwelling Problem C ommon Lemons Lemons [facility] catheter catheter - [facility] present present [facility] Recurrent Risk for Problem Comm on falls falls [facility] [id number] Pressure Problem Com mon 5106 ulcer of [facility] right - [facility] heel, [facility] Cholelithi Gall Problem Commo n asis bladder Spirit without stones [facility] obstructio [facility] Hypertensi Hypertensi Problem C ommon on on [facility] Type II Uncontroll Problem Comm on diabetes ed type 2 Spiri t mellitus diabetes - [facility] without mellitus complicati with [facility] on insulin Medical therapy Center Mixed Mixed Problem Common hyperlipid hyperlipid [facility] [address] emia emia [facility] Gastroesop GERD Problem Commo n hageal (gastroeso Spirit reflux phageal - [facility] disease reflux St disease) [facility] Vitamin D Vitamin D Problem Com mon deficiency deficiency Sp rachelle [facility] Allergies, Adverse Reactions, Alerts Allergy Allergy Status Severity Reaction(s) Onset Inactive Treating Comm ents Source Name Type Date Date Clinician CODEINE Allergy Active High 2023-[address] [facility] [facility] PROMETHA Allergy Active High [facility] ZINE [facility] ADHESIVE Allergy Active 2022-[address] TAPE [facility] 00 [place] OXYCODON DRUG Active Hallucinates 0 Un hellen E INGREDI 11-04 ity of 00:00: [place] 00 Medical Branch PHENERGA DRUG Active Other-Cmnt 0 Univ ers N PLAIN 11-04 ity of 00:00: [place] 00 Medical Branch ADHESIVE Drug Active Rash 2022-0 Univers Class 4- ity of 00:00: [place] 00 Medical Branch Adhesive Propensi Active Rash 0 Univer s ty to 11-04 ity of adverse 00:00: [place] reaction 00 Medical s Branch Oxycodon Propensi Active Hallucinatio Univers e ty to ns 11-04 ity of adverse 00:00: [place] reaction 00 Medical s Branch Phenerga Propensi Active Other - See 0 Sweats U nivers n Plain ty to comments 11-04 and ity of adverse 00:00: shakes [place] reaction 00 Medical s Branch Prometha Propensi Active Other (See 0 Cold Me thodi zine ty to Comments) 3-[address] adverse 00:00: and Hospita reaction 00 passing l s to out drug CODEINE DRUG Active Hallucinates 2019-0 Uni vers INGREDI 9- ity of 00:00: [place] 00 Medical Branch Codeine Propensi Active Hallucinatio 2019-0 U nivers ty to ns 9- ity of adverse 00:00: [place] reaction 00 [...] 2000- [facility] 08-06 Clear 00:00: [place] 00 [facility] CODEINE DA Active U HALLUCINATIO 2000- [facility] N 08-06 Clear 00:00: [place] 00 [facility] No Known DA Active U 2000-07 [facility] Contrast 08-06 Clear Allergie 00:00: [place] s 00 [facility] No Known DA Active U 2000-07 [facility] Food 08-06 Clear Allergie 00:00: [place] s 00 [facility] No Known DA Active U 2000-07 [facility] Other 08-06 Clear Allergie 00:00: Hernandez s 00 [facility] Opioids Propensi Active Rash Hallucina Meth deonte - ty to 6-17 tions ( st Morphine adverse 00:00: [facility] Analogue reaction 00 craw over l s s to body).Oth drug er reaction( s): Anaphylax ishalluci nations NO KNOWN Drug Active Univers ALLERGIE Class ity of S [facility] prometha prometha Active Unknown Commo n zine zine Spirit [facility] codeine codeine Active Unknown Common Spirit [facility] codeine codeine Active Memoria l Lewis Phenerga Phenerga Active Memori a n n l [place] Tape Tape Active Memoria l [place] Family History Family Member Diagnosis Comments Start Date Stop Date Source Natural father Heart disease Methodi [facility] Natural father Hypert[facility] Natural [facility] Natural mother Hyperlipidemia Method [facility] Natural mother Hypertension Methodis [facility] Natural mother Kidney disease Method is Hospital Social History Social Habit Start Date Stop Date Quantity Comments Source History of Tobacco Common Spirit - Use [facility] Gender identity [facility] History SDOH University o f Alcohol Std Drinks [place] [facility] History SDOH University o f Alcohol Binge [place] Medic al Branch History SDOH Social Unive rsity of Connections [facility] Med ical Together Branch History SDOH Social Unive rsity of Connections [facility] Medical Branch History SDOH Social Unive rsity of [employer] [place] [facility] Membership Branch History SDOH Social Unive rsity of [facility] Medical Meetings Branch Sexual orientation Method ist Hospital History SDOH 2022-12-15 2022-12-15 1 University o f Alcohol Frequency 00:00:00 00:00:00 [place] M edical Branch History SDOH Social 2022-12-15 2022-12-15 5 Unive rsity of Connections Phone 00:00:00 00:00:00 [facility] edical Branch History SDOH Social 2022-12-15 2022-12-15 5 Unive rsity of Connections Living 00:00:00 00:00:00 [place] [facility] History SDOH 2022-12-15 2022-12-15 0 University o f Physical Activity 00:00:00 00:00:00 [place] M edical DPW Branch History SDOH 2022-12-15 2022-12-15 0 University o f Physical Activity 00:00:00 00:00:00 [place] M edical MPS Branch History SDKY 2022-12-15 2022-12-15 5 University o f Financial 00:00:00 00:00:00 [place] [facility] History SDOH Food 2022-12-15 2022-12-15 1 Univers ity of Worry 00:00:00 00:00:00 [place] [facility] History SDOH Food 2022-12-15 2022-12-15 1 Univers ity of Scarcity 00:00:00 00:00:00 [place] [facility] History SDKY 2022-12-15 2022-12-15 2 University o f Transport Med 00:00:00 00:00:00 [place] Medic al Branch History SDKY 2022-12-15 2022-12-15 2 University o f Transport Non-Med 00:00:00 00:00:00 [place] M edical Branch History SDKY 2022-12-15 2022-12-15 2 University o f Housing Unable to 00:00:00 00:00:00 [place] M edical Pay Branch History SDKY 2022-12-15 2022-12-15 1 University o f Housing Places 00:00:00 00:00:00 [place] Medi jose Lived Branch History SDKY 2022-12-15 2022-12-15 2 University o f Housing Homeless 00:00:00 00:00:00 [place] Me dical Last Year Branch Exposure to 2022-10-25 2022-11-04 Not sure University of SARS-CoV-2 (event) 00:00:00 13:19:00 [place] [facility] History of Social 2022-10-09 2022-10-[address] function 00:00:00 00:00:00 Hospital Alcohol intake 2022-04-27 2022-04-27 Current drinker Metho dist 00:00:00 00:00:00 of alcohol Hospital (finding) Cigarettes smoked 2022-04-26 2022-04-[address] current (pack per 00:00:00 00:00:00 Hospita l ) - Reported Cigarette 2022-04-26 2022-04-26 Religion pack-years 00:00:00 00:00:00 Hospital Tobacco use and 2022-04-26 2022-04-26 Smokeless Religion exposure 00:00:00 00:00:00 tobacco non-user Hospital Social History 2021-02-23 2021-02-23 [facility] 20:24:04 20:24:04 Alcohol Comment 2020-03-23 2020-03-23 RARELY Religion 00:00:00 00:00:00 Hospital Sex [birth year] At [birth year] Religion 00:00:00 00:00:00 Hospital Smoking Status Start Date Stop Date Source Unknown if ever smoked [facility] Former Smoker 2023-01-10 00:00:00 2023-01-10 00:00:00 Common S pirit - [facility] Ce nter Never smoked tobacco [facility] Medications Ordered Filled Start Stop Current Ordering Indication Dosage Frequency Signature Comments Components Source Medication Medication Date Date Medication? Clinician (SIG) Name Name honey 80 % 2022- No [id number] 5mL Apply 5 mL Univers 12-23 to area(s) ity of 00:00: 04:59 every 48 [place] 00 :00 ([facility]) hours Branch for 10 days. honey 80 % 2022- No [id number] 5mL Apply 5 mL Univers 12-23 to area(s) ity of 00:00: 04:59 every 48 [place] 00 :00 ([facility]) hours Branch for 10 days. vancomycin 2022-2022- No 15mg/kg 1,250 mg Univers 1,250 mg in 12-22 (rounded ity of NaCl 0.9% 19:00: 06:59 from [place] (NS) 250 mL 00 :00 1,177.5 mg Me dical VIAL-MATE = 15 mg/kg Bran ch IV ?78.5 kg), piggyback IV Piggyback, ONCE, 1 dose, On Sun12/22/22 at 1400, Administer over 90 Minutes, 250 mL
Reas on for Anti-Infec tive: Documented Infection& lt;br>Docu mented Infection Site: Blood
D uration of Therapy: 7 days vancomycin No 15mg/kg 1,250 mg Univers 1,250 mg in 12-22 (rounded ity of NaCl 0.9% 19:00: 06:59 from [place] (NS) 250 mL 00 :00 1,177.5 mg [...] Units ity of unit/mL 17:37: under the [place] in 07 skin in [facility] the [place] morning and 30 Units at noon and 30 Units in the evening. Sliding scale Insulin Yes 45U inject 45 Unive rs Glargine 6-16 Units ity of (LANTUS 17:37: under the [place] SOLOSTME 07 skin in [facility] [address] [place] [address] INSULIN) morning 100 unit/mL and 45 (3 mL) Units in injection the evening. buPROPion Yes 150mg Take 1 Unive rs SR 150 mg 6-16 tablet by ity o f SR tablet 17:37: mouth in [facility] 07 the Medical morning. Branch pantoprazol Yes 40mg Take 1 Univ ers e 40 mg EC 6-16 tablet by ity of tablet 17:37: mouth in [place] [address] the [facility] morning. Branch Levothyroxi Yes 150ug Take 150 U nivers ne 100 mcg 6-16 mcg by ity of capsule 17:37: mouth [place] [address] daily. Medical Branch aspirin 81 Yes 81mg Take 81 mg U nivers mg Cap 6-16 by mouth ity of 17:37: in the [place] [address] morning. Medical Branch Cholecalcif Yes Take by [...] mg 6-16 ity of tablet 17:37: [place] [address] [place] [address] Branch fenofibrate 0 Yes 200mg Take 1 Uni vers micronized 6-16 capsule by ity of 200 mg 17:37: mouth. [place] capsule [address] [place] [address] Branch polyethylen Yes 17g Take 1 Univ ers e glycol 6-16 Packet by ity of 3350 17 17:37: mouth. [place] gram powder [address] [place] [address] Branch insulin Yes 30U inject 30 Unive rs lispro 100 6-16 Units ity of unit/mL 17:37: under the [place] inph 07 skin in Medical the Branch morning and 30 Units at noon and 30 Units in the evening. Sliding scale Insulin Yes 45U inject 45 Unive rs Glargine 6-16 Units ity of (LANTUS 17:37: under the [place] SOLOSTAR 07 skin in [facility] U-100 the Branch INSULIN) morning 100 unit/mL and 45 (3 mL) Units in injection the evening. buPROPion Yes 150mg Take 1 Unive rs SR 150 mg 6-16 tablet by ity o f SR tablet 17:37: mouth in [facility] s 07 the Medical morning. Branch pantoprazol Yes 40mg Take 1 Univ ers e 40 mg EC 6-16 tablet by ity of tablet 17:37: mouth in [place] [address] the Medical morning. Branch Levothyroxi Yes 150ug [...] by ity of mcg tablet 17:37: mouth every Medical morning. Branch loratadine Yes Univers 10 mg 6-16 ity of tablet 17:37: [place] [facility] fenofibrate Yes 200mg Take 1 Uni vers micronized 6-16 capsule by ity of 200 mg 17:37: mouth. [place] capsule [address] [place] [address] Branch polyethylen Yes 17g Take 1 Univ ers e glycol 6-16 Packet by ity of 3350 17 17:37: mouth. [place] gram powder [address] [place] [address] Branch insulin Yes 30U inject 30 Unive rs lispro 100 6-16 Units ity of unit/mL 17:37: under the [place] inph 07 skin in Medical the Branch morning and 30 Units at noon and 30 Units in the evening. Sliding scale Insulin Yes 45U inject 45 Unive rs Glargine 6-16 Units ity of (LANTUS 17:37: under the [place] SOLOSTAR 07 skin in [facility] U-100 the [place] INSULIN) morning 100 unit/mL and 45 (3 mL) Units in injection the evening. buPROPion Yes 150mg Take 1 Unive rs SR 150 mg 6-16 tablet by ity o f SR tablet 17:37: mouth in [facility] s 07 the Medical morning. Branch pantoprazol Yes 40mg Take 1 Univ ers e 40 mg EC 6-16 tablet by ity of tablet 17:37: mouth in [place] [address] the Medical morning. Branch Levothyroxi Yes 150ug Take 150 U nivers ne 100 mcg 6-16 mcg by ity of capsule 17:37: mouth daily. Medical Branch aspirin 81 0 Yes 81mg Take 81 mg U nivers mg Cap 6-16 by mouth ity of 17:37: in the 07 morning. Medical Branch Cholecalcif Yes Take by Uni vers daryl, 6-16 mouth. ity of Vitamin D3, 17:37: [place] 25 mcg 07 Medical (1,000 Branch unit) capsule folic Yes Take by Univers acid/multiv 6-16 mouth ity of it-min/lute 17:37: daily. Jonelle aleman in (CENTRUM 07 Medical SILVER Branch ORAL) vitamin 2022-0 Yes 100ug Take 1 Univers B-12 100 6-16 tablet by ity of mcg tablet 17:37: mouth [place] [address] every Medical morning. Branch loratadine Yes Univers 10 mg 6-16 ity of tablet 17:37: [place] [address] Medical Branch fenofibrate 0 Yes 200mg Take 1 Uni vers micronized 6-16 capsule by ity of 200 mg 17:37: mouth. [place] capsule Medical Branch polyethylen Yes 17g Take 1 Univ ers e glycol 6-16 Packet by ity of 3350 17 17:37: mouth. [place] gram powder Medical Branch amLODIPine 2022- No 10mg Take 1 Univ ers 10 mg -16 16 tablet by ity of tablet 16:45: 00:00 mouth in [place] 05 :00 the Medical morning. Branch furosemide 2022-2022- No 160mg Take 2 Uni vers 80 mg -16 tablets by ity of tablet 16:45: 00:00 mouth in [place] 05 :00 the Medical morning. Branch lisinopriL 2022- No 5mg Take 1 Univ ers 5 mg tablet 12-22 tablet by it y of 16:45: 00:00 mouth in [place] 05 :00 the Medical morning. Branch metoprolol 2022- No 50mg Take 1 Univ ers succinate -22 12-16 tablet by ity of XL 50 mg 24 16:45: 00:00 mouth in [place] hr tablet 05 :00 the Medical morning Branch and 1 tablet in the evening. multivitami 2022-2022- No Take by Un hellen n (MULTIPLE -16 -16 mouth. ity o f VITAMIN 16:45: 00:00 [place] ESSENTIAL 05 :00 Medical ORAL) Branch clopidogreL 2022-0 2022- No 75mg Take 1 Uni vers (PLAVIX) 75 22 12-16 tablet by it y of mg tablet 16:45: 00:00 mouth in [place] as 05 :00 the Medical morning. Branch ticagrelor 0 Yes 90mg 90 mg, Unive rs (BRILINTA) 6-16 Oral, BID, ity of tablet 90 13:00: First dose [place] mg 00 on Sun Medical 12/22/22 at [place] 0800, Until Discontinu ed, Routine ticagrelor 2022-0 Yes 90mg 90 mg, Unive rs (BRILINTA) 6-16 Oral, BID, ity of tablet 90 13:00: First dose [place] mg 00 on Sun Medical 12/22/22 at [place] 0800, Until Discontinu ed, Routine ticagrelor 2022-0 2022- No [id number] 90mg Take 1 Univers 90 mg 12-22-17 tablet by ity of tablet 00:00: 04:59 mouth in [place] 00 :00 the [facility] and 1 tablet in the evening. Do all this for 30 days. amLODIPine 2022-0 2022- No [id number] 5mg Take 1 Univers 5 mg tablet 12-22-17 tablet by it y of 00:00: 04:59 mouth in [place] 00 :00 [facility] for 30 days. ticagrelor 2022-0 2022- No [id number] 90mg Take 1 Univers 90 mg 12-22-17 tablet by ity of tablet 00:00: 04:59 mouth in [place] 00 :00 [facility] and 1 tablet in the evening. Do all this for 30 days. amLODIPine 2022-0 2022- No [id number] 5mg Take 1 Univers 5 mg tablet 12-22-17 tablet by it y of 00:00: 04:59 mouth in [place] 00 :00 [facility] for 30 days. FENTanyl PF 3-0 Yes 25ug 25 mcg, Uni vers (SUBLIMAZE 6-15 Slow IV ity of (PF)) 21:51: Push, [place] injection 46 Q5MIN PRN, Medi jose 25 mcg 4 doses, Branch Starting on Krystle 12/21/22 at 1651, Until Discontinu ed, Routine, Pain (scale 7-10), PACU FENTanyl PF 3-0 Yes 25ug 25 mcg, Uni vers (SUBLIMAZE [...] Routine, Pain (scale 7-10), PACU FENTanyl PF 2022- Yes 25ug 25 mcg, Uni vers (SUBLIMAZE 6-15 Slow IV ity of (PF)) 21:51: Push, [place] injection 46 Q5MIN PRN, Medi jose 25 mcg 4 doses, Branch Starting on Krystle 12/21/22 at 1651, Until Discontinu ed, Routine, Pain (scale 4-6), PACU ondansetron 2022- No 4mg 4 mg, Slow Univers (ZOFRAN 12-2116 IV Push, ity of (PF)) 21:51: 18:25 PRN, 1 [place] injection 4 46 :00 dose, Medical mg Starting Branch on Krystle 12/21/22 at 1651, Until Discontinu ed, Routine, Nausea and Vomiting (N/V), PACU heparin 2022- No PRN, Univers lock flush 12-21 Starting ity of (HEPARIN 21:22: 21:52 on [facility] LOCKFLUSH(P 00 :17 12/21/22 at Va dical ORCINE)(PF) 1622, Branch ) 100 Until [place] unit/mL 12/21/22 at injection 1652, Routine, Intra-op bupivacaine 2022- No PRN, Unive rs (preserv 12-21 Starting ity of free) 21:18: 21:52 on [facility] (SENSORCAIN 00 :17 12/21/22 at Va dical E MPF) 0.25 1618, Branch % (2.5 Until Krystle mg/mL) 12/21/22 at injection 1652, Routine, Intra-op NaCl 0.9% 2022- No PRN, Univers (NS) 12-21-15 Starting ity of injection 21:17: 21:52 on [facility] 00 :17 12/21/22 at Medical 1617, Branch Until Sun12/21/22 at 1652, Routine, Intra-op heparin Yes 2000U PRN - SEE Univ ers 1,000 6-15 INSTRUCTIO ity of unit/mL 16:04: NS, [place] injection 44 Starting Medica l 2,000 Units on [place] 12/21/22 at 1104, Until Discontinu ed, Routine
For Priming of Ports:&nbs p; &n bsp; After initial saline flush, prime each port with heparin according to the priming volume listed on each catheter port for catheter lock.
heparin Yes 2000U PRN - SEE Univ ers 1,000 6-15 INSTRUCTIO ity of unit/mL 16:04: NS, [place] injection 44 Starting Medica l 2,000 Units on [place] 12/21/22 at 1104, Until Discontinu ed, Routine
For Priming of Ports:&nbs p; &n bsp; After initial saline flush, prime each port with heparin according to the priming volume listed on each catheter port for catheter lock.
honey 2022- No Topical, Univers ([facility] 12-21 Q48H, 7 ity o f (HONEY)) 80 15:00: 14:59 doses, [place] as % topical 00 :00 First dose Medi jose gel (after Branch last modificati on) on [place]le 12/21/22 at 1000, Last dose on Sun01/02/23 at 1000, Routine honey 2022- No Topical, Univers ([facility] 12-21 Q48H, 7 ity o f (HONEY)) 80 15:00: 14:59 doses, [place] as % topical 00 :00 First dose Medi jose gel (after Branch last modificati on) on [place]rystle 12/21/22 at 1000, Last dose on Sun01/02/23 at 1000, Routine dicyclomine 2023-0 Yes 20mg 20 mg, [facility] ers (BENTYL) 6-15 Oral, ity of tablet 20 05:09: QIDPRN, [place] mg 02 Starting Medical on [facility] Branch 12/21/22 at 0009, Until Discontinu ed, Routine, Abdominal pain dicyclomine 3-0 Yes 20mg 20 mg, [facility] ers (BENTYL) 6-15 Oral, ity of tablet 20 05:09: QIDPRN, [place] mg 02 Starting Medical on [facility] Branch 12/21/22 at 0009, Until Discontinu ed, Routine, Abdominal pain heparin 2022-0 Yes 2000U PRN - SEE [facility] ers 1,000 12-19 INSTRUCTIO ity of unit/mL 21:51: NS, [place] injection 05 Starting Medica l 2,000 Units on [facility] 12/19/22 at 1651, Until Discontinu ed, Routine
For Priming of Ports:&nbs p; &n bsp; After initial saline flush, prime each port with heparin according to the priming volume listed on each catheter port for catheter lock.
heparin 2022-0 Yes 2000U PRN - SEE [facility] ers 1,000 12-19 INSTRUCTIO ity of unit/mL 21:51: NS, [place] injection 05 Starting Medica l 2,000 Units on [facility] 12/19/22 at 1651, Until Discontinu ed, Routine
For Priming of Ports:&nbs p; &n bsp; After initial saline flush, prime each port with heparin according to the priming volume listed on each catheter port for catheter lock.
diphenhydrA 2023-0 Yes 25mg 25 mg, [facility] ers MINE 12-19 Oral, ity of (BENADRYL) 09:29: Q4HPRN, [place] tablet 25 48 Starting Medica l mg on On [facility] Branch 12/19/22 at 0429, Until Discontinu ed, Routine, Itching diphenhydrA 2023-0 Yes 25mg 25 mg, [facility] ers MINE 6 Oral, ity of (BENADRYL) 09:29: Q4HPRN, [place] tablet 25 48 Starting Medica l mg on [facility] 12/19/22 at 0429, Until Discontinu ed, Routine, Itching heparin 2022-0 2022- No [id number] 2800U ONCE, 1 Univers 1,000 12-18 dose, On ity of unit/mL 17:15: 18:47 Mon [place] injection 00 :00 12/18/22 at [facility] jose 2,800 Units 1215, Branch Routine
Catheter packing
simethicone 2022-0 Yes 80mg 80 mg, Univ ers (GAS RELIEF 11 Oral, ity of (SIMETHICON 18:00: [place]HS, [place] E)) 00 First dose Medical chewable on Sun Branch tablet 80 12/17/22 at mg 1300, Until Discontinu ed, Routine simethicone 2022-0 Yes 80mg 80 mg, Univ ers (GAS RELIEF 11 Oral, ity of (SIMETHICON 18:00: PC[place]HS, [place] E)) 00 First dose Medical chewable on Sun Branch tablet 80 12/17/22 at mg 1300, Until Discontinu ed, Routine ceFAZolin 2022- No 1000mg 1,000 mg, Univers (ANCEF) 12-16 Intravenou [...]
D uration of Therapy: 14 days ceFAZolin 0 2022- No 1000mg 1,000 mg, Univers (ANCEF) 12-16 Intravenou [...]
D uration of Therapy: 14 days epoetin 0 Yes 8000U 8,000 Univers vanesa-epbx 6-10 Units, ity of (RETACRIT) 11:45: [place]cut[place] injection 00 us, Medical 8,000 Units QMON/WED/F Br anch [place] AT 1999, First dose on 12/16/22 at 0745, Until Discontinu ed, Routine
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
D uration of Therapy: 14 days morpHINE (4 2023-0 Yes 4mg 4 mg, Slow Univers mg/mL) 6-10 IV Push, ity of injection 4 02:04: Q4HPRN, [place] mg 42 Starting Medical on Sun Branch 12/15/22 at 2103, Until Discontinu ed, Routine, Pain (scale 7-10) morpHINE (4 2022-0 Yes 4mg 4 mg, Slow Univers mg/mL) 6-10 IV Push, ity of injection 4 02:04: Q4HPRN, [place] mg 42 Starting Medical on Sun12/15/22 at 2103, Until Discontinu ed, Routine, Pain (scale 7-10) proCHLORper 2022-0 Yes 10mg 10 mg, Univ ers azine 6-10 Slow IV ity of (COMPAZINE) 02:03: Push, [place] injection 03 Q6HPRN, Medical 10 mg Starting Branch on Sun12/15/22 at 2102, Until Discontinu ed, Routine, Nausea and Vomiting (N/V), For nausea and vomiting not responsive to Zofran proCHLORper 2022-0 Yes 10mg 10 mg, Univ ers azine 6-10 Slow IV ity of (COMPAZINE) 02:03: Push, [place] injection 03 Q6HPRN, Medical 10 mg Starting Branch on Sun12/15/22 at 2102, Until Discontinu ed, Routine, Nausea and Vomiting (N/V), For nausea and vomiting not responsive to Zofran metroNIDAZO 2022-0 2022- No 500mg 500 mg, IV Univers LE in NaCl 6-10 06-10 Infusion, ity of (iso-os) 02:00: 17:45 Q12H [...] br>Duratio n of therapy: 5 days ondansetron 2022-0 Yes 4mg 4 mg, Slow Univers (ZOFRAN 6-10 IV Push, ity of (PF)) 00:52: Q6HPRN, [place] injection 4 31 Nausea and Me dical mg Vomiting Branch (N/V), Starting on Sun12/15/22 at 1951
Do ses of ondansetro n 16 mg and above need to be administer ed via IV piggyback. For Dose >=24mg ECG monitoring is advisable.
ondansetron 0 Yes 4mg 4 mg, Slow Univers (ZOFRAN 6-10 IV Push, ity of (PF)) 00:52: Q6HPRN, [place] injection 4 31 Nausea and Me dical mg Vomiting Branch (N/V), Starting on Sun12/15/22 at 1951
Do ses of ondansetro n 16 mg and above need to be administer ed via IV piggyback. For Dose >=24mg ECG monitoring is advisable.
heparin 0 2022- No [id number] 4300U DIALYSIS Univers 1,000 12-15-10 ONCE - PT ity of unit/mL 22:45: 00:22 ROOM, 1 [place] injection 00 :00 dose, On Medica l 4,300 Units Sun12/15/22 Br anch at 1745, Routine
HD Catheter ports pack: A = 2.3 ml; V = 2.3 ml
mupirocin 2022- No Nasal, Unive rs (BACTROBAN 12-15-14 Q12H, 10 ity of NASAL OINT) 16:30: 02:46 doses, [place] as 2 % nasal 00 :00 First dose Medi jose ointment on Sun12/15/22 at 1130, Last dose on Sun12/19/22 at 2000, Routine polyethylen 0 Yes 17g 17 g, Unive rs e glycol 12-15 Oral, ity of 3350 powder 14:00: DAILY, [place] 17 g 00 First dose Medical on Sun12/15/22 at 0900, Until Discontinu ed, Routine loratadine Yes 10mg 10 mg, Unive rs (CLARITIN) [...] Sun12/15/22 at 0900, Until Discontinu ed buPROPion 0 Yes 150mg 150 mg, Univ ers XL 6 Oral, ity of (WELLBUTRIN 14:00: DAILY, [place] XL) tablet 00 First dose Med ical 150 mg on Sun Branch 12/15/22 at 0900, Until Discontinu ed, Routine aspirin EC 0 Yes 81mg 81 mg, Unive rs tablet 81 12-15 Oral, ity of mg 14:00: DAILY, [place] 00 First dose Medical on Sun12/15/22 at 0900, Until Discontinu ed polyethylen Yes 17g 17 g, Unive rs e glycol 12-15 Oral, ity of 3350 powder 14:00: DAILY, [place] 17 g 00 First dose Medical on Sun12/15/22 at 0900, Until Discontinu ed, Routine loratadine 0 Yes 10mg 10 mg, Unive rs (CLARITIN) 12-15 Oral, ity of tablet 10 14:00: DAILY, [place] mg 00 First dose Medical on Sun Branch 12/15/22 at 0900, Until Discontinu ed, Routine cholecalcif 0 Yes 1000U 1,000 Univ ers daryl 6- Units, ity of (vitamin 14:00: Oral, [place] D3) tablet 00 DAILY, Medical 1,000 Units First dose Br anch on Sun12/15/22 at 0900, Until Discontinu ed buPROPion 0 Yes 150mg 150 mg, Univ ers XL 12-15 Oral, ity of (WELLBUTRIN 14:00: DAILY, [place] XL) tablet 00 First dose Med ical 150 mg on Sun Branch 12/15/22 at 0900, Until Discontinu ed, Routine aspirin EC 2022-0 Yes 81mg 81 mg, Unive rs tablet 81 12-15 Oral, ity of mg 14:00: DAILY, [place] 00 First dose Medical on Sun Branch 12/15/22 at 0900, Until Discontinu ed docusate 0 Yes 100mg 100 mg, Unive rs (COLACE) 12-15 Oral, BID, ity o f capsule 100 13:00: First dose [place] mg 00 on Sun [facility] 12/15/22 at Branch 0800, Until Discontinu ed, Routine docusate 0 Yes 100mg 100 mg, Unive rs (COLACE) 12-15 Oral, BID, ity o f capsule 100 13:00: First dose [place] mg 00 on Sun [facility] 12/15/22 at Branch 0800, Until Discontinu ed, Routine vancomycin 0 2022- No 15mg/kg 1,250 mg Univers 1,250 [...] uration of Therapy: Other (see Comments) heparin 0 Yes 5000U 5,000 Univers (porcine) 6- Units, ity of injection 11:00: [place]cut[place]o [place] 5,000 Units 00 us, Q8H, [facility] First dose [place] on Sun12/15/22 at 0600, Until Discontinu ed, Routine heparin 2022-0 Yes 5000U 5,000 Univers (porcine) - Units, ity of injection 11:00: [place]cut[place]o [place] 5,000 Units 00 us, Q8H, [facility] First dose [place] on Sun12/15/22 at 0600, Until Discontinu ed, Routine insulin 2022-0 Yes 30U inject 30 Unive rs lispro 100 6-09 Units ity of unit/mL 07:43: under the [place] inph 43 skin in [facility] morning and 30 Units at noon and 30 Units in the evening. Sliding scale Insulin 2022-0 Yes 45U inject 45 Unive rs Glargine 6- Units ity of (LANTUS 07:43: under the [place] SOLOSTAR 43 skin in Medical U-100 the Branch INSULIN) morning 100 unit/mL and 45 (3 mL) Units in injection the evening. amLODIPine 3-0 Yes 10mg Take 1 Unive rs 10 mg 6-09 tablet by ity of tablet 07:43: mouth in [place] [address] the Medical morning. Branch buPROPion 3-0 Yes 150mg Take 1 Unive rs SR 150 mg 6-09 tablet by ity o f SR tablet 07:43: mouth in [place] [address] the Medical morning. Branch furosemide 2023-0 Yes 160mg Take 2 Univ ers 80 mg 6-09 tablets by ity of tablet 07:43: mouth in [place] [address] the Medical morning. Branch lisinopriL 2022-0 Yes 5mg Take 1 Unive rs 5 mg tablet 6-09 tablet by ity of 07:43: mouth in [place] [address] the Medical morning. Branch metoprolol 2022-0 Yes 50mg Take 1 Unive rs succinate 6-09 tablet by ity o f XL 50 mg 24 07:43: mouth in [place] hr tablet 43 the Medical morning Branch and 1 tablet in the evening. pantoprazol 2022-0 Yes 40mg Take 1 Univ ers e 40 mg EC 6-09 tablet by ity of tablet 07:43: mouth in [place] [address] the Medical morning. Branch Levothyroxi 2022-0 Yes 150ug Take 150 U nivers ne 100 mcg 6-09 mcg by ity of capsule 07:43: mouth [place] [address] daily. Medical Branch aspirin 81 2022-0 Yes 81mg Take 81 mg U nivers mg Cap 6-09 by mouth ity of 07:43: in the [place] [address] morning. Medical Branch Cholecalcif 2022-0 Yes Take by Uni vers daryl, 6-09 mouth. ity of Vitamin D3, 07:43: [place] 25 [facility] 43 Medical (1,000 Branch unit) capsule folic 2022-0 Yes Take by Univers acid/multiv 6-09 mouth ity of it-min/lute 07:43: [place]. [place] in (CENTRUM 43 Medical SILVER Branch ORAL) vitamin 3-0 Yes 100ug Take 1 Univers B-12 100 6-09 tablet by ity of mcg tablet 07:43: mouth [place] [address] every Medical morning. Branch loratadine 3-0 Yes Univers 10 mg 6-09 ity of tablet 07:43: [place] [address] Medical Branch multivitami 2023-0 Yes Take by Uni vers n (MULTIPLE 12-15 mouth. ity of VITAMIN 07:43: [place] ESSENTIAL 43 Medical ORAL) Branch fenofibrate Yes 200mg Take 1 Uni vers micronized 12-15 capsule by ity of 200 mg 07:43: mouth. [place] capsule 43 Medical Branch polyethylen Yes 17g Take 1 Univ ers e glycol 12-15 Packet by ity of 3350 17 07:43: mouth. [place] gram powder 43 Medical Branch clopidogreL Yes 75mg Take 1 Univ ers (PLAVIX) 75 12-15 tablet by ity of mg tablet 07:43: mouth in [facility] 43 the morning. Branch NORepinephr 2022- No .05ug/k 0.05-0.5 Univers ine 4 mg in 12-15 06-10 g/min mcg/kg/min ity of 0.9% NaCl 07:34: 07:33 ?77 kg [place] 250 mL 23 :23 (14.4375-1 Medical infusion 44.375 Branch RTU mL/hr, rounded to 14.44-144. 38 mL/hr), [...] vasopresso r at a time.
Sliding Yes Subcutaneo Univ ers Scale 6-09 us, Q6H, ity of Insulin - 05:00: First dose [place] Lispro 00 on Sun Medical (HumaLOG) 12/15/22 at Bran h 0000, Until Discontinu ed, Routine Sliding Yes Subcutaneo Univ ers Scale 6-09 us, Q6H, ity of Insulin - 05:00: First dose [place] Lispro 00 on Fri Medical (HumaLOG) 12/15/22 at [facility] h 0000, Until Discontinu ed, Routine NaCl 0.9% 2022-0 2022- No 1000mL at 999 Uni vers (NS) bolus 12-15 mL/hr, ity of infusion 04:45: 05:55 1,000 mL, [place] as 1,000 mL 00 :48 IV Medical Infusion, Branch ONCE, 1 dose, On [place] 12/14/22 at 2345, STAT pantoprazol 2022-0 2022- No 40mg 40 mg, Uni vers e 12-15 Slow IV ity of (PROTONIX) 04:00: 03:04 Push, [place] injection 00 :00 Q24H, 3 Medical 40 mg doses, Branch First dose on [place] 12/14/22 at 2300, Last dose on 12/16/22 at 2300 potassium 2022-0 2022- No 10meq 10 mEq, IV Univers chloride in 12-15 Piggyback, i ty of water 10 04:00: 11:36 Q1H, 3 [place] mEq/100 mL 00 :00 doses, Medical RTU 10 mEq First dose Bra nch on Sun12/14/22 at 2300, Last dose on Sun12/15/22 at 0100, Administer over 60 Minutes, 100 mL glucagon 2022-0 Yes 1mg 1 mg, Univers (GLUCAGEN 12-15 Intramuscu ity of DIAGNOSTIC 03:59: lar, PRN, [place] KIT) 49 Starting Medical injection 1 on [place] Branch mg 12/14/22 at 2259, Until Discontinu ed, VIOLETTA, Blood Glucose < or = 70 mg/dL and patient is NPO, unable to swallow or has mental changes. dextrose 50 2022-0 Yes 25mL 25 mL, Univ ers % in water 12-15 Slow IV ity of (D50W) 03:59: Push, PRN, [place] injection 49 Starting Medica l 25 mL on [place] Branch 12/14/22 at 2259, Until Discontinu ed, VIOLETTA, Blood Glucose < or = 70 mg/dL and patient is NPO, unable to swallow or has mental status changes. glucagon 2022-0 Yes 1mg 1 mg, Univers (GLUCAGEN 12-15 Intramuscu ity of DIAGNOSTIC 03:59: lar, PRN, [place] KIT) 49 Starting Medical injection 1 on [place] Branch mg 12/14/22 at 2259, Until Discontinu ed, VIOLETTA, Blood Glucose < or = 70 mg/dL and patient is NPO, unable to swallow or has mental changes. dextrose 50 Yes 25mL 25 mL, Univ ers % in water 12-15 Slow IV ity of (D50W) 03:59: Push, PRN, [place] injection 49 Starting Medica l 25 mL on [place] Branch 12/14/22 at 2259, Until Discontinu ed, VIOLETTA, Blood Glucose < or = 70 mg/dL and patient is NPO, unable to swallow or has mental status changes. levoFLOXaci 2022- No 250mg 250 mg, IV Univers n in D5W 12-1510 Piggyback, ity of (LEVAQUIN) 03:00: 17:45 Q24H [...] Piggyback, Medical ONCE, 1 Branch dose, On [facility] 12/14/22 at 211, STAT glycerin/mi No 225mL 225 mL, U nivers neral oil 12-15 Rectal, ity of (AGLO 02:15: 01:56 ONCE, 1 [place] ENEMA) 00 :00 dose, On Medical (COMPOUNDED [facility] 12/14/22 Br anch ) Enem 225 at 2115, mL Routine glycerin 0 Yes 1{suppo 1 Univer s (adult) 12-15 sitory} Suppositor ity of (FLEET 01:30: y, Rectal, [place] GLYCERIN 00 DAILY, Medical (ADULT)) First dose Branc h suppository on [facility] 12/14/22 at Suppository 2030, Until Discontinu ed, Routine glycerin 2022-0 Yes 1{suppo 1 Univer s (adult) 12-15 sitory} Suppositor ity of (FLEET 01:30: y, Rectal, [place] GLYCERIN 00 DAILY, Medical (ADULT)) First dose Branc h suppository on [facility] 12/14/22 at Suppository 2030, Until Discontinu ed, Routine acetaminoph 2022- No 500mg 500 mg, U nivers en 12-15 Oral, ity of (TYLENOL) 01:00: 00:03 ONCE, 1 [place] tablet 500 00 :00 dose, On Medic al mg [facility] 12/14/22 Branch at 2000, Routine ketorolac 2022- No 15mg 15 mg, Unive rs (TORADOL) 12-15 Slow IV ity of injection 00:45: 00:32 Push, [place] 15 mg 00 :00 ONCE, 1 Medical dose, On Branch [facility] 12/14/22 at 1945, Routine ceFEPIme 2022- No 1g 1 g, IV Unive rs (MAXIPIME) 12-15 Piggyback, it y of 1 g in NaCl 00:15: 00:02 ONCE, 1 [place] 0.9% (NS) 00 :00 dose, On Medica l 50 mL [facility] 12/14/22 Branch MINI-BAG at 1915, Administer over 30 Minutes, 50 mL
Reas on for Anti-Infec tive: Documented Infection< br>Documen matthew Infection Site: Skin / Soft Tissue< br>Duratio n of Therapy: 7 days ondansetron 2022-0 2022- No 4mg 4 mg, Slow Univers (ZOFRAN 12-14 06-08 IV Push, ity of (PF)) 23:15: 23:32 ONCE, 1 [place] injection 4 00 :00 dose, On Medi jose mg [place] 12/14/22 [place] at 1815, VIOLETTA mupirocin 2022-0 Yes Nasal, Univer s (BACTROBAN 5-02 Q12H, For ity of NASAL OINT) 18:45: 5 days, [place] 2 % nasal 33 First dose Medi jose ointment conditiona Branc h l, Routine insulin 2022-0 Yes 30U inject 30 Unive rs lispro 100 5-02 Units ity of unit/mL 17:42: under the [place] in 52 skin in [facility] the [place] morning and 30 Units at noon and 30 Units in the evening. Sliding scale Insulin 2022-0 Yes 45U inject 45 Unive rs Glargine 5-02 Units ity of (LANTUS 17:42: under the [place] [facility] skin in [facility] U-100 the [place] INSULIN) morning 100 unit/mL and 45 (3 mL) Units in injection the evening. amLODIPine 2022-0 Yes 10mg Take 1 Unive rs 10 mg 5-02 tablet by ity of tablet 17:42: mouth in [place] [address] the Medical morning. [place] buPROPion 2022-0 Yes 150mg Take 1 Unive rs SR 150 mg 5-02 tablet by ity o f SR tablet 17:42: mouth in [place] [address] the Medical morning. Branch furosemide 2022-0 Yes 160mg Take 2 Univ ers 80 mg 5-02 tablets by ity of tablet 17:42: mouth in [place] [address] the Medical morning. Branch lisinopriL 2022-0 Yes 5mg Take 1 Unive rs 5 mg tablet 5-02 tablet by ity of 17:42: mouth in [place] [address] the Medical morning. Branch metoprolol 2022-0 Yes 50mg Take 1 Unive rs succinate 5-02 tablet by ity o f XL 50 mg 24 17:42: mouth in [place] hr tablet 52 the Medical morning Branch and 1 tablet in the evening. pantoprazol 0 Yes 40mg Take 1 Univ ers e 40 mg EC 5-02 tablet by ity of tablet 17:42: mouth in [place] [address] the Medical morning. Branch Levothyroxi 0 Yes 150ug Take 150 U nivers ne 100 mcg 5-02 mcg by ity of capsule 17:42: mouth [place] [address] daily. Medical Branch aspirin 81 0 Yes 81mg Take 81 mg U nivers mg Cap 5-02 by mouth ity of 17:42: in the [place] [address] morning. Medical Branch Cholecalcif Yes Take by Uni vers daryl, 5-02 mouth. ity of Vitamin D3, 17:42: [place] 25 mcg Medical (1,000 Branch unit) capsule folic Yes Take by Univers acid/multiv 5-02 mouth ity of it-min/lute 17:42: [facility]. [facility]CEN[facility] 52 Medical SILVER Branch ORAL) vitamin 2022-0 Yes 100ug Take 1 Univers B-12 100 5-02 tablet by ity of mcg tablet 17:42: mouth [place] [address] every Medical morning. Branch loratadine 0 Yes Univers 10 mg 5-02 ity of tablet 17:42: [place] [address] Medical Branch multivitami 0 Yes Take by Uni vers n (MULTIPLE 5-02 mouth. ity of VITAMIN 17:42: [place] ESSENTIAL Medical ORAL) Branch fenofibrate 0 Yes 200mg Take 1 Uni vers micronized 5-02 capsule by ity of 200 mg 17:42: mouth. [place] capsule Medical Branch polyethylen 0 Yes 17g Take 1 Univ ers e glycol 5-02 Packet by ity of 3350 17 17:42: mouth. [place] gram powder Medical Branch clopidogreL 0 Yes 75mg Take 1 Univ ers (PLAVIX) 75 5-02 tablet by ity of mg tablet 17:42: mouth in [place] 52 the Medical morning. Branch insulin 0 Yes 30U inject 30 Unive rs lispro 100 5-02 Units ity of unit/mL 17:42: under the [place] inph 52 skin in Medical the Branch morning and 30 Units at noon and 30 Units in the evening. Sliding scale Insulin 2022-0 Yes 45U inject 45 Unive rs Glargine 5-02 Units ity of (LANTUS 17:42: under the [place] SOLOSTME 52 skin in Medical U-100 the Branch INSULIN) morning 100 unit/mL and 45 (3 mL) Units in injection the evening. amLODIPine 2022-0 Yes 10mg Take 1 Unive rs 10 mg 5-02 tablet by ity of tablet 17:42: mouth in [place] [address] the Medical morning. Branch buPROPion 2022-0 Yes 150mg Take 1 Unive rs SR 150 mg 5-02 tablet by ity o f SR tablet 17:42: mouth in [place] [address] the Medical morning. Branch furosemide 2022-0 Yes 160mg Take 2 Univ ers 80 mg 5-02 tablets by ity of tablet 17:42: mouth in [place] [address] the Medical morning. Branch lisinopriL 0 Yes 5mg Take 1 Unive rs 5 mg tablet 5-02 tablet by ity of 17:42: mouth in [place] [address] the Medical morning. Branch metoprolol 2022-0 Yes 50mg Take 1 Unive rs succinate 5-02 tablet by ity o f XL 50 mg 24 17:42: mouth in [place] hr tablet 52 the Medical morning Branch and 1 tablet in the evening. pantoprazol 0 Yes 40mg Take 1 Univ ers e 40 mg EC 5-02 tablet by ity of tablet 17:42: mouth in [place] [address] the Medical morning. Branch Levothyroxi 0 Yes 150ug Take 150 U nivers ne 100 mcg 5-02 mcg by ity of capsule 17:42: mouth [place] [address] daily. Medical Branch aspirin 81 2022-0 Yes 81mg Take 81 mg U nivers mg Cap 5-02 by mouth ity of 17:42: in the [place] [address] morning. Medical Branch Cholecalcif 0 Yes Take by Uni vers daryl, 5-02 mouth. ity of Vitamin D3, 17:42: [place] 25 [facility] 52 Medical (1,000 Branch unit) capsule folic 2022-0 Yes Take by Univers acid/multiv 5-02 mouth ity of it-min/lute 17:42: daily. [facility] (CENTRUM 52 Medical SILVER Branch ORAL) vitamin 2022-0 Yes 100ug Take 1 Univers B-12 100 5-02 tablet by ity of mcg tablet 17:42: mouth [place] [address] every Medical morning. Branch loratadine Yes Univers 10 mg 5-02 ity of tablet 17:42: [place] [address] Medical Branch multivitami Yes Take by Uni vers n (MULTIPLE 5-02 mouth. ity of VITAMIN 17:42: [place] ESSENTIAL Medical ORAL) Branch fenofibrate Yes 200mg Take 1 Uni vers micronized 5-02 capsule by ity of 200 mg 17:42: mouth. [place] capsule Medical Branch polyethylen 0 Yes 17g Take 1 Univ ers e glycol 5-02 Packet by ity of 3350 17 17:42: mouth. [place] gram powder Medical Branch clopidogreL Yes 75mg Take 1 Univ ers (PLAVIX) 75 5-02 tablet by ity of mg tablet 17:42: mouth in [place] [address] the Medical morning. Branch mupirocin 2 Yes [id number] .5g Use 0.5 g Univers % nasal 5-02 in each ity of ointment 00:00: nostril [place] 00 every 12 Medical (twelve) Branch hours. mupirocin 2 Yes [id number] .5g Use 0.5 g Univers % nasal 5-02 in each ity of ointment 00:00: nostril [place] 00 every 12 Medical (twelve) Branch hours. mupirocin 2 Yes [id number] .5g Use 0.5 g Univers % nasal 5-02 in each ity of ointment 00:00: nostril [place] 00 every 12 Medical (twelve) Branch hours. mupirocin 2 2022- No [id number] .5g Use 0.5 g Univers % nasal 5-02 06-16 in each ity of ointment 00:00: 00:00 nostril [place] 00 :00 every 12 Medical (twelve) Branch hours. atorvastati 2022- No [id number] 40mg Take 1 Univers n 40 mg 5-02 06-02 tablet by ity of tablet 00:00: 04:59 mouth at [place] 00 :00 bedtime Medical for 30 Branch days. atorvastati 2022- No [id number] 40mg Take 1 Univers n 40 mg 5-02 06-02 tablet by ity of tablet 00:00: 04:59 mouth at [place] 00 :00 bedtime Medical for 30 Branch days. mupirocin Yes [id number] Uni vers (BACTROBAN 11-06 ity of OINT) 2 % 19:00: [place] skin 00 Medical ointment Branch heparin 3- No [id number] 4600U DIALYSIS Univers 1,000 11-06 ONCE - PT ity of unit/mL 15:15: 16:26 ROOM, 1 [place] injection 00 :00 dose, On Medica l 4,600 Units 11/06/22 Br anch at 1015, Routine
A port : 2.3 ml V port : 2.3 ml To verónica: 4.6 ml
sulfur 2022- No [id number] 5mL 5 mL, Unive rs hexafluorid 11-05 04-30 Intravenou i ty of e microsphr 15:15: 15:15 s, ONCE, 1 [place] (LUMASON) 00 :00 dose, On Medica l injection 5 Sun Branch mL 11/05/22 at 1015, Routine
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 TORRES polyethylen Yes 17g 17 g, Unive rs e glycol 4-30 Oral, ity of 3350 powder 14:00: DAILY, [place] 17 g 00 First dose Medical on [place] Branch 11/05/22 at 0900, Until Discontinu ed, [...] ed, Routine clopidogreL Yes 75mg 75 mg, [facility] ers (PLAVIX) 75 4-30 Oral, ity of mg tablet 14:00: DAILY, [place] 75 mg 00 First dose Medical on Sun Branch 11/05/22 at 0900, Until Discontinu ed, Routine buPROPion Yes 150mg 150 mg, [facility] ers SR 4-30 Oral, ity of (WELLBUTRIN [...] 0900, Until Discontinu ed Sliding Yes Subcutaneo [facility] ers Scale 4-30 us, TID ity of [...] at 0800, Until Discontinu ed, Routine psyllium 0 Yes 1{packe 1 Packet, U nivers husk 4-30 t} Oral, BID, ity of (METAMUCIL 13:00: First dose [place] (SUGAR 00 on Sun Medical FREE)) 3.4 11/05/[address] [facility] gram oral 0800, powder Until packet 1 Discontinu Packet ed, Routine cholecalcif 0 Yes 2000U 2,000 [facility] ers daryl 4-30 Units, ity of (vitamin 13:00: Oral, [place] D3[place] tablet 00 MEALS, Medical 2,000 Units First dose Br anch on 11/05/22 at 0800, Until Discontinu ed glucagon 0 Yes 1mg 1 mg, Univers (GLUCAGEN 4-30 Intramuscu ity of DIAGNOSTIC 12:13: [place], [place]N, [place] KIT) 03 Starting Medical injection 1 on [facility] mg 11/05/22 at 0713, Until Discontinu ed, VIOLETTA, Blood Glucose < or = 70 mg/dL and patient is NPO, unable to swallow or has mental changes. dextrose 50 2022-0 Yes 25mL 25 mL, Univ ers % in water 4-30 Slow IV ity of (D50W) 12:13: Push, PRN, [place] injection 03 Starting Medica l 25 mL on [facility] 11/05/22 at 0713, Until Discontinu ed, VIOLETTA, Blood Glucose < or = 70 mg/dL and patient is NPO, unable to swallow or has mental status changes. levothyroxi Yes 150ug 150 mcg, U nivers ne 4-30 Oral, ity of (SYNTHROID) 11:00: QAM-0600, [place] tablet 150 00 First dose Med ical mcg on [facility] 11/05/22 at 0600, Until Discontinu ed, Routine heparin 0 Yes 5000U 5,000 Univers (porcine) 4-30 Units, ity of injection 03:00: [place] 5,000 Units 00 us, Q8H, Medi jose First dose Branch on [facility] 11/04/22 at 2200, Until Discontinu ed, Routine ondansetron 0 Yes 4mg 4 mg, Slow Univers (ZOFRAN 4-30 IV Push, ity of (PF)) 02:39: Q6HPRN, [place] injection 4 30 Nausea and Me dical mg Vomiting Branch (N/V), Starting on [facility] 11/04/22 at 213
Do ses of ondansetro n 16 mg and above need to be administer ed via IV piggyback. For Dose >=24mg ECG monitoring is advisable.
KCL 2022-0 2022- No 40meq 40 mEq, Univers (KLOR-CON 4-30 04-30 Oral, ity of M20) tablet 02:15: 03:06 ONCE, 1 [place] 40 mEq 00 :00 dose, On Medical [facility] Branch 11/04/22 at 2115, Routine HYDROcodone 2022-0 Yes 1{tbl} 1 tablet, Univers -acetaminop 4-30 Oral, ity of hen (NORCO 02:03: Q6HPRN, [place] 5) 5-325 mg 40 Starting Medi jose tablet 1 on [facility] Branch tablet 11/04/22 at 2103, Until Discontinu ed, Routine, Pain (scale 7-10) traMADoL 0 Yes 50mg 50 mg, Univers (ULTRAM) 4-30 Oral, ity of tablet 50 02:03: Q6HPRN, [place] mg 11 Starting Medical on [facility] Branch 11/04/22 at 2103, Until Discontinu ed, Routine, Pain (scale 4-6) atorvastati Yes 40mg 40 mg, Univ ers n (LIPITOR) 4-30 Oral, QHS, it y of tablet 40 02:00: First dose [place] mg 00 on [facility] Medical 11/04/22 at Branch 2100, Until Discontinu ed, Routine metoprolol Yes 50mg 50 mg, Unive rs succinate 430 Oral, BID, ity of XL (TOPROL 01:45: First dose [place] XL) tablet 00 on [facility] Medical 50 mg 11/04/22 at Branch 2045, Until Discontinu ed, Routine potassium 2022- No 10meq 10 mEq, IV Univers chloride in 11-04 Piggyback, i ty of water 10 22:15: 00:08 ONCE, 1 [place] mEq/100 mL 00 :00 dose, On Medic al RTU 10 mEq [facility] Branch 11/04/22 at 1715, Administer over 60 Minutes, 100 mL acetaminoph Yes 650mg 650 mg, Un hellen en 11-04 Oral, ity of (TYLENOL) 21:56: Q6HPRN, [place] tablet 650 18 Starting Medic al mg on [facility] Branch 11/04/22 at 1656, Until Discontinu ed, Routine, Pain (scale 1-3) KCL 2022- No 20meq 20 mEq, Univers (KLOR-CON 11-04 Oral, ity of M20) tablet 21:30: 22:08 ONCE, 1 [place] 20 mEq 00 :00 dose, On Medical [facility] Branch 11/04/22 at 1630, VIOLETTA FENTanyl PF 0 2022- No 25ug 25 mcg, Un hellen (SUBLIMAZE 11-04 Slow IV ity o f (PF)) 20:45: 20:53 Push, [place] injection 00 :00 ONCE, 1 Medical 25 mcg dose, On Branch 11/04/22 at 1545, STAT sevelamer Yes 3200mg Take 4 Univ ers 800 mg 1-03 tablets by ity of tablet 00:00: mouth. [place] [facility] sevelamer 0 Yes 3200mg Take 4 Univ ers 800 mg 1-03 tablets by ity of tablet 00:00: mouth. [place] [facility] sevelamer 2022-0 Yes 3200mg Take 4 Univ ers 800 mg 1-03 tablets by ity of tablet 00:00: mouth. [place] [facility] sevelamer 0 Yes 3200mg Take 4 Univ ers 800 mg 1-03 tablets by ity of tablet 00:00: mouth. [place] [facility] sevelamer 0 Yes 3200mg Take 4 Univ ers 800 mg 1-03 tablets by ity of tablet 00:00: mouth. [place] [facility] sevelamer 0 Yes 3200mg Take 4 Univ ers 800 mg 1-03 tablets by ity of tablet 00:00: mouth. [address] buPROPion 2021-07 Yes 150mg Q.5D Take [...] 5 days .acute pain. traMADoL 2021-07 No [id number] 50mg Q8H Take 1 Metho di (Ultram) 50 0-19 10-25 tablet (50 s t mg tablet 00:00: 04:59 mg total) Ho spita 00 :00 by mouth l every 8 (eight) hours as needed for moderate pain for up to 5 days .acute pain. traMADoL 2021-07 [id number] 50mg Q8H Take 1 Metho di (Ultram) 50 0-19 10-25 tablet (50 s t mg tablet 00:00: 04:59 mg total) Ho spita 00 :00 by mouth l every 8 (eight) hours as needed for moderate pain for up to 5 days .acute pain. traMADoL 2021-07 [id number] 50mg Q8H Take 1 Metho di (Ultram) 50 0-19 10-25 tablet (50 s t mg tablet 00:00: 04:59 mg total) Ho spita 00 :00 by mouth l every 8 (eight) hours as needed for moderate pain for up to 5 days .acute pain. traMADoL 2021-07 [id number] 50mg Q8H Take 1 Metho di (Ultram) 50 0-19 10-25 tablet (50 s t mg tablet 00:00: 04:59 mg total) Ho spita 00 :00 by mouth l every 8 (eight) hours as needed for moderate pain for up to 5 days .acute pain. traMADoL 2021-07 [id number] 50mg Q8H Take 1 Metho di (Ultram) 50 0-19 10-25 tablet (50 s t mg tablet 00:00: 04:59 mg total) Ho spita 00 :00 by mouth l every 8 (eight) hours as needed for moderate pain for up to 5 days .acute pain. traMADoL 2021-07 [id number] 50mg Q8H Take 1 Metho di (Ultram) 50 0-19 10-25 tablet (50 s t mg tablet 00:00: 04:59 mg total) Ho spita 00 :00 by mouth l every 8 (eight) hours as needed for moderate pain for up to 5 days .acute pain. traMADoL 2021-07 [id number] 50mg Q8H Take 1 Metho di (Ultram) 50 0-19 10-25 tablet (50 s t mg tablet 00:00: 04:59 mg total) Ho spita 00 :00 by mouth l every 8 (eight) hours as needed for moderate pain for up to 5 days .acute pain. traMADoL 2021-07 [id number] 50mg Q8H Take 1 Metho di (Ultram) [...] st (CIPRO) 250 00:00: 00:00 [facility] tablet 00 :00 TWICE l DAILY [...] TWICE l DAILY UNTIL ALL TAKEN. traMADoL [id number] 50mg Q8H Take 1 Metho di (Ultram) 50 03-06-04 tablet (50 s t mg tablet 00:00: 04:59 mg total) Ho spita 00 :00 by mouth l every 8 (eight) hours as needed for moderate pain for up to 5 days .acute pain. traMADoL 2021- [id number] 50mg Q8H Take 1 Metho di (Ultram) 50 - 09-04 tablet (50 s t mg tablet 00:00: 04:59 mg total) Ho spita 00 :00 by mouth l every 8 (eight) hours as needed for moderate pain for up to 5 [place] [id number] 50mg Q8H Take 1 Metho di (Ultram) 50 03-06-04 tablet (50 s t mg tablet 00:00: 04:59 mg total) Ho spita 00 :00 by mouth l every 8 (eight) hours as needed for moderate pain for up to 5 days .acute pain. traMADoL [id number] 50mg Q8H Take 1 Metho di (Ultram) 50 8 09-04 tablet (50 s t mg tablet 00:00: 04:59 mg total) Ho spita 00 :00 by mouth l every 8 (eight) hours as needed for moderate pain for up to 5 days .acute pain. traMADoL [id number] 50mg Q8H Take 1 Metho di (Ultram) 50 03-06-04 tablet (50 s t mg tablet 00:00: 04:59 mg total) Ho spita 00 :00 by mouth l every 8 (eight) hours as needed for moderate pain for up to 5 days .acute pain. traMADoL [id number] 50mg Q8H Take 1 Metho di (Ultram) 50 03-06-04 tablet (50 s t mg tablet 00:00: 04:59 mg total) Ho spita 00 :00 by mouth l every 8 (eight) hours as needed for moderate pain for up to 5 days .acute pain. traMADoL [id number] 50mg Q8H Take 1 Metho di (Ultram) 50 03-06-04 tablet (50 s t mg tablet 00:00: 04:59 mg total) Ho spita 00 :00 by mouth l every 8 (eight) hours as needed for moderate pain for up to 5 days .acute pain. traMADoL [id number] 50mg Q8H Take 1 Metho di (Ultram) 50 8 09-04 tablet (50 s t mg tablet 00:00: 04:59 mg total) Ho spita 00 :00 by mouth l every 8 (eight) hours as needed for moderate pain for up to 5 days .acute pain. traMADoL 03639 50mg Q8H Take 1 Metho di (Ultram) 50 8- 09-04 tablet (50 s t mg tablet 00:00: 04:59 mg total) Ho spita 00 :00 by mouth l every 8 (eight) hours as needed for moderate pain for up to 5 days .acute pain. traMADoL 2021- No [id number] 50mg Q8H Take 1 Metho di (Ultram) 50 8- 09-04 tablet (50 s t mg tablet 00:00: 04:59 mg total) Ho spita 00 :00 by mouth l every 8 (eight) hours as needed for moderate pain for up to 5 days .acute pain. traMADoL 2021- No [id number] 50mg Q8H Take 1 Metho di (Ultram) 50 8- 09-04 tablet (50 s t mg tablet 00:00: 04:59 mg total) Ho spita 00 :00 by mouth l every 8 (eight) hours as needed for moderate pain for up to 5 days .acute pain. traMADoL 2021- No [id number] 50mg Q8H Take 1 Metho di (Ultram) 50 8-06 04-04 tablet (50 s t mg tablet [...] 500mg QD Take 500 Methodi in HCl 6 06-[address] (CIPRO 15:13: 00:00 [...] ity o f 100 mg 00:00: mouth. [place] capsule 00 Medical Branch psyllium Yes 1{packe Take 1 Univ ers husk 3-19 t} Packet by jair of (METAMUCIL 00:00: mouth. [place] FIBER 00 Medical SINGLES) Branch 3.4 gram oral powder packet psyllium Yes 3.4g Take 3.4 g Met [...] Daily, 0 l mg-40 mg 20:29: Refill(s) [facility] joss oral 00 delayed release tablet Centrum Yes PO, Daily, J[place] frida Silver 8-18 0 l Ultra 20:29: Refill(s) [place] [facility] Claritin Yes 10 mg = 1 [place] frida 8-18 tab, PO, l 20:29: Daily, PRN [place] 00 Itching / rash / allergy symptoms, # 20 tab, 0 Refill(s) Stool Yes PO, [place] Softener 8-18 Bedtime, 0 l with 20:29: Refill(s) [place] Laxative aspirin-ome No 1 tab, PO, Memoria prazole 325 8-18 Daily, 0 l mg-40 mg 20:29: Refill(s) [facility] joss oral 00 delayed release tablet Centrum Yes PO, Daily, [place] fr[place] Silver 8-18 0 l Ultra 20:29: Refill(s) [place] [facility] Claritin Yes 10 mg = 1 J[place] frida 8-18 tab, PO, l 20:29: Daily, PRN [place] 00 Itching / rash / allergy symptoms, # 20 tab, 0 Refill(s) Stool Yes PO, Mem[facility] Softener 8-18 Bedtime, 0 l with 20:29: Refill(s) [place] Laxative aspirin-ome No 1 tab, PO, Memoria prazole 325 8-18 Daily, 0 l mg-40 mg 20:29: Refill(s) [facility] joss oral 00 delayed release tablet Centrum Yes PO, Daily, [place] fr[place] Silver 8-18 0 l Ultra 20:29: Refill(s) [place] Claritin Yes 10 mg = 1 Jairo frida 8-18 tab, PO, l 20:29: Daily, PRN [place] 00 Itching / rash / allergy symptoms, # 20 tab, 0 Refill(s) Stool Yes PO, [facility] Softener 8-18 Bedtime, 0 l with 20:29: Refill(s) [place] Laxative aspirin-ome No 1 tab, PO, Memoria prazole 325 8-18 Daily, 0 l mg-40 mg 20:29: Refill(s) [facility] joss oral 00 delayed release tablet Centrum Yes PO, Daily, [place] fr[place] Silver 8-18 0 l Ultra 20:29: Refill(s) [place] Claritin Yes 10 mg = 1 Jairo [...] Silver 8-18 0 l Ultra 20:29: Refill(s) [place] Claritin Yes 10 mg = 1 Jairo frida 8-18 tab, PO, l 20:29: Daily, PRN [place] 00 Itching / rash / allergy symptoms, # 20 tab, 0 Refill(s) Stool Yes PO, Mem[place] Softener 8-18 Bedtime, 0 l with 20:29: Refill(s) [place] Laxative aspirin-ome No 1 tab, PO, Memoria prazole 325 8-18 Daily, 0 l mg-40 mg 20:29: Refill(s) [facility] joss oral 00 delayed release tablet Centrum Yes PO, Daily, [place] Silver 8-18 0 l Ultra 20:29: Refill(s) [place] Claritin Yes 10 mg = 1 J[place] frida 8-18 tab, PO, l 20:29: Daily, PRN [place] 00 Itching / rash / allergy symptoms, # 20 tab, 0 Refill(s) Stool Yes PO, Mem[facility] Softener 8-18 Bedtime, 0 l with 20:29: Refill(s) [place] Laxative aspirin-ome No 1 tab, PO, Memoria prazole 325 8-18 Daily, 0 l mg-40 mg 20:29: Refill(s) [facility] joss oral 00 delayed release tablet Centrum Yes PO, Daily, [place] fr[place] Silver 8-18 0 l Ultra 20:29: Refill(s) [place] Claritin Yes 10 mg = 1 J[place] frida 8-18 tab, PO, l 20:29: Daily, PRN [place] 00 Itching / rash / allergy symptoms, # 20 tab, 0 Refill(s) Stool Yes PO, Mem[facility] Softener 8-18 Bedtime, 0 l with 20:29: Refill(s) [place] Laxative aspirin-ome No 1 tab, PO, Memoria prazole 325 8-18 Daily, 0 l mg-40 mg 20:29: Refill(s) [facility] joss oral 00 delayed release tablet Centrum 0 Yes PO, Daily, [place] Silver 8-18 0 l Ultra 20:29: Refill(s) [place] Claritin Yes 10 mg = 1 J[place] frida 8-18 tab, PO, l 20:29: Daily, PRN [place] 00 Itching / rash / allergy symptoms, # 20 tab, 0 Refill(s) Stool Yes PO, Memoria Softener 8-18 Bedtime, 0 l with 20:29: Refill(s) [place] Laxative aspirin-ome No 1 tab, PO, [facility] prazole 325 8-18 Daily, 0 l mg-40 mg 20:29: Refill(s) [facility] joss oral 00 delayed release tablet Centrum Yes PO, Daily, [place] Silver 8-18 0 l Ultra 20:29: Refill(s) [place] Claritin Yes 10 mg = 1 Jairo frida 8-18 tab, PO, l 20:29: Daily, PRN [place] 00 Itching / rash / allergy symptoms, # 20 tab, 0 Refill(s) Stool Yes PO, Memoria Softener 8-18 Bedtime, 0 l with 20:29: Refill(s) [place] Laxative aspirin-ome No 1 tab, PO, Memoria prazole 325 8-18 Daily, 0 l mg-40 mg 20:29: Refill(s) [facility] joss oral 00 delayed release tablet Centrum Yes PO, Daily, Jairo firda Silver 8-18 0 l Ultra 20:29: Refill(s) [place] Claritin Yes 10 mg = 1 Jairo frida 8-18 tab, PO, l 20:29: Daily, PRN [place] 00 Itching / rash / allergy symptoms, # 20 tab, 0 Refill(s) Stool Yes PO, Memoria Softener 8-18 Bedtime, 0 l with 20:29: Refill(s) [place] Laxative aspirin-ome No 1 tab, PO, Memoria prazole 325 8-18 Daily, 0 l mg-40 mg 20:29: Refill(s) [facility] joss oral 00 delayed release tablet Centrum 0 Yes PO, Daily, [place] Silver 8-18 0 l Ultra 20:29: Refill(s) [place] Claritin Yes 10 mg = 1 Jairo [...] Silver 8-18 0 l Ultra 20:29: Refill(s) [place] Claritin Yes 10 mg = 1 [place] frida 8-18 tab, PO, l 20:29: Daily, PRN [place] 00 Itching / rash / allergy symptoms, # 20 tab, 0 Refill(s) Stool Yes PO, Memoria Softener 8-18 Bedtime, 0 l with 20:29: Refill(s) [place] Laxative aspirin-ome No 1 tab, PO, Memoria prazole 325 8-18 Daily, 0 l mg-40 mg 20:29: Refill(s) [facility] joss oral 00 delayed release tablet Centrum Yes PO, Daily, [place] Silver 8-18 0 l Ultra 20:29: Refill(s) [place] Claritin Yes 10 mg = 1 Jairo frida 8-18 tab, PO, l 20:29: Daily, PRN [place] 00 Itching / rash / allergy symptoms, # 20 tab, 0 Refill(s) Stool Yes PO, Memoria Softener 8-18 Bedtime, 0 l with 20:29: Refill(s) [place] Laxative aspirin-ome No 1 tab, PO, Memoria prazole 325 8-18 Daily, 0 l mg-40 mg 20:29: Refill(s) [facility] joss oral 00 delayed release tablet Centrum 0 Yes PO, Daily, [place] Silver 8-18 0 l Ultra 20:29: Refill(s) [place] Claritin Yes 10 mg = 1 Jairo frida 8-18 tab, PO, l 20:29: Daily, PRN [place] 00 Itching / rash / allergy symptoms, # 20 tab, 0 Refill(s) Stool Yes PO, Memoria Softener 8-18 Bedtime, 0 l with 20:29: Refill(s) [place] Laxative aspirin-ome No 1 tab, PO, Memoria prazole 325 8-18 Daily, 0 l mg-40 mg 20:29: Refill(s) [facility] joss oral 00 delayed release tablet Centrum Yes PO, Daily, [place] fr[place] Silver 8-18 0 l Ultra 20:29: Refill(s) [place] Claritin Yes 10 mg = 1 Jairo frida 8-18 tab, PO, l 20:29: Daily, PRN [place] 00 Itching / rash / allergy symptoms, # 20 tab, 0 Refill(s) Stool Yes PO, Memoria Softener 8-18 Bedtime, 0 l with 20:29: Refill(s) [place] Laxative aspirin-ome No 1 tab, PO, Memoria prazole 325 8-18 Daily, 0 l mg-40 mg 20:29: Refill(s) [facility] joss oral 00 delayed release tablet Centrum Yes PO, Daily, [place] Silver 8-18 0 l Ultra 20:29: Refill(s) [place] Claritin Yes 10 mg = 1 Jairo frida 8-18 tab, PO, l 20:29: Daily, PRN [place] 00 Itching / rash / allergy symptoms, # 20 tab, 0 Refill(s) Stool Yes PO, Memoria Softener 8-18 Bedtime, 0 l with 20:29: Refill(s) [place] Laxative aspirin-ome No 1 tab, PO, Memoria prazole 325 8-18 Daily, 0 l mg-40 mg 20:29: Refill(s) [facility] joss oral 00 delayed release tablet Centrum 0 Yes PO, Daily, [place] fr[place] Silver 8-18 0 l Ultra 20:29: Refill(s) [place] Claritin Yes 10 mg = 1 Jairo frida 8-18 tab, PO, l 20:29: Daily, PRN [place] 00 Itching / rash / allergy symptoms, # 20 tab, 0 Refill(s) Stool Yes PO, Memoria Softener 8-18 Bedtime, 0 l with 20:29: Refill(s) [place] Laxative aspirin-ome No 1 tab, PO, Memoria prazole 325 8-18 Daily, 0 l mg-40 mg 20:29: Refill(s) [facility] joss oral 00 delayed release tablet Centrum Yes PO, Daily, [place] fr[place] Silver 8-18 0 l Ultra 20:29: Refill(s) [place] Claritin Yes 10 mg = 1 Jairo frida 8-18 tab, PO, l 20:29: Daily, PRN [place] 00 Itching / rash / allergy symptoms, # 20 tab, 0 Refill(s) Stool Yes PO, Memoria Softener 8-18 Bedtime, 0 l with 20:29: Refill(s) [place] Laxative aspirin-ome No 1 tab, PO, Memoria prazole 325 8-18 Daily, 0 l mg-40 mg 20:29: Refill(s) [facility] joss oral 00 delayed release tablet Centrum Yes PO, Daily, J[place] frida Silver 8-18 0 l Ultra 20:29: Refill(s) [place] Claritin Yes 10 mg = 1 Jairo frida 8-18 tab, PO, l 20:29: Daily, PRN [place] 00 Itching / rash / allergy symptoms, # 20 tab, 0 Refill(s) Stool Yes PO, Memoria Softener 8-18 Bedtime, 0 l with 20:29: Refill(s) [place] Laxative aspirin-ome No 1 tab, PO, Memoria prazole 325 8-18 Daily, 0 l mg-40 mg 20:29: Refill(s) [facility] joss oral 00 delayed release tablet Centrum Yes PO, Daily, J[place] frida Silver 8-18 0 l Ultra 20:29: Refill(s) [place] Claritin Yes 10 mg = 1 Jairo frida 8-18 tab, PO, l 20:29: Daily, PRN [place] 00 Itching / rash / allergy symptoms, # 20 tab, 0 Refill(s) Stool Yes PO, Memoria Softener 8-18 Bedtime, 0 l with 20:29: Refill(s) [place] Laxative aspirin-ome No 1 tab, PO, Memoria prazole 325 8-18 Daily, 0 l mg-40 mg 20:29: Refill(s) [facility] joss oral 00 delayed release tablet Centrum Yes PO, Daily, Jairo frida Silver 8-18 0 l Ultra 20:29: Refill(s) [place] Claritin Yes 10 mg = 1 Jairo frida 8-18 tab, PO, l 20:29: Daily, PRN [place] Itching / rash / allergy symptoms, # 20 tab, 0 Refill(s) Stool Yes PO, Memoria Softener 8-18 Bedtime, 0 l with 20:29: Refill(s) [place] Laxative aspirin-ome No 1 tab, PO, Memoria prazole 325 8-18 Daily, 0 l mg-40 mg 20:29: Refill(s) [facility] joss oral 00 delayed release tablet Centrum Yes PO, Daily, Jairo frida Silver 8-18 0 l Ultra 20:29: Refill(s) [place] Claritin Yes 10 mg = 1 Jairo frida 8-18 tab, PO, l 20:29: Daily, PRN [place] 00 Itching / rash / allergy symptoms, # 20 tab, 0 Refill(s) Stool Yes PO, Memoria Softener 8-18 Bedtime, 0 l with 20:29: Refill(s) [place] Laxative aspirin-ome No 1 tab, PO, Memoria prazole 325 8-18 Daily, 0 l mg-40 mg 20:29: Refill(s) [facility] joss oral 00 delayed release tablet Centrum 0 Yes PO, Daily, J[place] frida Silver 8-18 0 l Ultra 20:29: Refill(s) [place] Claritin Yes 10 mg = 1 Jairo frida 8-18 tab, PO, l 20:29: Daily, PRN [place] 00 Itching / rash / allergy symptoms, # 20 tab, 0 Refill(s) Stool Yes PO, Memoria Softener 8-18 Bedtime, 0 l with 20:29: Refill(s) [place] Laxative aspirin-ome No 1 tab, PO, Memoria prazole 325 8-18 Daily, 0 l mg-40 mg 20:29: Refill(s) [facility] joss oral 00 delayed release tablet Centrum Yes PO, Daily, J[place] frida Silver 8-18 0 l Ultra 20:29: Refill(s) [place] Claritin Yes 10 mg = 1 Jairo frida 8-18 tab, PO, l 20:29: Daily, PRN [place] 00 Itching / rash / allergy symptoms, # 20 tab, 0 Refill(s) Stool Yes PO, Memoria Softener 8-18 Bedtime, 0 l with 20:29: Refill(s) [place] Laxative aspirin-ome No 1 tab, PO, Memoria prazole 325 8-18 Daily, 0 l mg-40 mg 20:29: Refill(s) [facility] joss oral 00 delayed release tablet Centrum Yes PO, Daily, Jairo frida Silver 8-18 0 l Ultra 20:29: Refill(s) [place] Claritin Yes 10 mg = 1 Jairo frida 8-18 tab, PO, l 20:29: Daily, PRN [place] 00 Itching / rash / allergy symptoms, # 20 tab, 0 Refill(s) Stool Yes PO, Memoria Softener 8-18 Bedtime, 0 l with 20:29: Refill(s) [place] Laxative aspirin-ome No 1 tab, PO, Memoria prazole 325 8-18 Daily, 0 l mg-40 mg 20:29: Refill(s) [facility] joss oral 00 delayed release tablet Centrum 0 Yes PO, Daily, Jairo frida Silver 8-18 0 l Ultra 20:29: Refill(s) [place] Claritin Yes 10 mg = 1 Jairo [...] Silver 8-18 0 l Ultra 20:29: Refill(s) [place] Claritin Yes 10 mg = 1 Jairo frida 8-18 tab, PO, l 20:29: Daily, PRN [place] 00 Itching / rash / allergy symptoms, # 20 tab, 0 Refill(s) Stool Yes PO, Memoria Softener 8-18 Bedtime, 0 l with 20:29: Refill(s) [place] Laxative aspirin-ome No 1 tab, PO, Memoria prazole 325 8-18 Daily, 0 l mg-40 mg 20:29: Refill(s) [facility] joss oral 00 delayed release tablet Centrum Yes PO, Daily, Jairo frida Silver 8-18 0 l Ultra 20:29: Refill(s) [place] Claritin Yes 10 mg = 1 Jairo [...] Silver 8-18 0 l Ultra 20:29: Refill(s) [place] Claritin Yes 10 mg = 1 Jairo frida 8-18 tab, PO, l 20:29: Daily, PRN [place] 00 Itching / rash / allergy symptoms, # 20 tab, 0 Refill(s) Stool Yes PO, Memoria Softener 8-18 Bedtime, 0 l with 20:29: Refill(s) [place] Laxative aspirin-ome No 1 tab, PO, Memoria prazole 325 8-18 Daily, 0 l mg-40 mg 20:29: Refill(s) [facility] joss oral 00 delayed release tablet Centrum Yes PO, Daily, Jairo frida Silver 8-18 0 l Ultra 20:29: Refill(s) [place] Claritin Yes 10 mg = 1 Jairo frida 8-18 tab, PO, l 20:29: Daily, PRN [place] 00 Itching / rash / allergy symptoms, # 20 tab, 0 Refill(s) Stool Yes PO, Memoria Softener 8-18 Bedtime, 0 l with 20:29: Refill(s) [place] Laxative aspirin-ome No 1 tab, PO, Memoria prazole 325 8-18 Daily, 0 l mg-40 mg 20:29: Refill(s) [facility] joss oral 00 delayed release tablet Centrum Yes PO, Daily, Jairo frida Silver 8-18 0 l Ultra 20:29: Refill(s) [place] Claritin Yes 10 mg = 1 Jairo frida 8-18 tab, PO, l 20:29: Daily, PRN [place] 00 Itching / rash / allergy symptoms, # 20 tab, 0 Refill(s) Stool Yes PO, Memoria Softener 8-18 Bedtime, 0 l with 20:29: Refill(s) [place] Laxative aspirin-ome No 1 tab, PO, Memoria prazole 325 8-18 Daily, 0 l mg-40 mg 20:29: Refill(s) [facility] joss oral 00 delayed release tablet Centrum 0 Yes PO, Daily, Jairo frida Silver 8-18 0 l Ultra 20:29: Refill(s) [place] Claritin Yes 10 mg = 1 Jairo frida 8-18 tab, PO, l 20:29: Daily, PRN [place] 00 Itching / rash / allergy symptoms, # 20 tab, 0 Refill(s) Stool 0 Yes PO, Memoria Softener 8-18 Bedtime, 0 l with 20:29: Refill(s) [place] Laxative aspirin-ome No 1 tab, PO, Memoria prazole 325 8-18 Daily, 0 l mg-40 mg 20:29: Refill(s) [facility] joss oral 00 delayed release tablet Centrum Yes PO, Daily, Jairo frida Silver 8-18 0 l Ultra 20:29: Refill(s) [place] [facility] Claritin Yes 10 mg = 1 Jairo frida 8-18 tab, PO, l 20:29: Daily, PRN [place] 00 Itching / rash / allergy symptoms, # 20 tab, 0 Refill(s) aspirin-ome No 1 tab, PO, Memoria prazole 325 8-18 Daily, 0 l mg-40 mg 20:29: Refill(s) [facility] joss oral 00 delayed release tablet Centrum Yes PO, Daily, Jairo frida Silver 8-18 0 l Ultra 20:29: Refill(s) [place] [facility] Claritin Yes 10 mg = 1 Jairo frida 8-18 tab, PO, l 20:29: Daily, PRN [place] 00 Itching / rash / allergy symptoms, # 20 tab, 0 Refill(s) Stool 0 Yes PO, Memoria Softener 8-18 Bedtime, 0 l with 20:29: Refill(s) [place] Laxative 00 Stool 0 Yes PO, Memoria Softener 8-18 Bedtime, 0 l with 20:29: Refill(s) [place] Laxative 00 aspirin-ome No 1 tab, PO, Memoria prazole 325 8-18 Daily, 0 l mg-40 mg 20:29: Refill(s) [facility] joss oral 00 delayed release tablet Centrum 0 Yes PO, Daily, Jairo frida Silver 8-18 0 l Ultra 20:29: Refill(s) [place] [facility] Claritin Yes 10 mg = 1 Jairo frida 8-18 tab, PO, l 20:29: Daily, PRN [place] 00 Itching / rash / allergy symptoms, # 20 tab, 0 Refill(s) Stool Yes PO, Memoria Softener 8-18 Bedtime, 0 l with 20:29: Refill(s) [place] Laxative aspirin-ome No 1 tab, PO, Memoria prazole 325 8-18 Daily, 0 l mg-40 mg 20:29: Refill(s) [facility] joss oral 00 delayed release tablet Centrum Yes PO, Daily, Jairo frida Silver 8-18 0 l Ultra 20:29: Refill(s) [place] Claritin Yes 10 mg = 1 Jairo frida 8-18 tab, PO, l 20:29: Daily, PRN [place] 00 Itching / rash / allergy symptoms, # 20 tab, 0 Refill(s) Stool Yes PO, Memoria Softener 8-18 Bedtime, 0 l with 20:29: Refill(s) [place] Laxative aspirin-ome No 1 tab, PO, Memoria prazole 325 8-18 Daily, 0 l mg-40 mg 20:29: Refill(s) [facility] joss oral 00 delayed release tablet Centrum Yes PO, Daily, Jairo frida Silver 8-18 0 l Ultra 20:29: Refill(s) [place] Claritin Yes 10 mg = 1 Jairo frida 8-18 tab, PO, l 20:29: Daily, PRN [place] 00 Itching / rash / allergy symptoms, # 20 tab, 0 Refill(s) Stool Yes PO, Memoria Softener 8-18 Bedtime, 0 l with 20:29: Refill(s) [place] Laxative aspirin-ome No 1 tab, PO, Memoria prazole 325 8-18 Daily, 0 l mg-40 mg 20:29: Refill(s) Herm joss oral 00 delayed release tablet Centrum Yes PO, Daily, Jairo frida Silver 8-18 0 l Ultra 20:29: Refill(s) [place] Claritin Yes 10 mg = 1 Jairo frida 8-18 tab, PO, l 20:29: Daily, PRN [place] 00 Itching / rash / allergy symptoms, # 20 tab, 0 Refill(s) Stool Yes PO, Memoria Softener 8-18 Bedtime, 0 l with 20:29: Refill(s) [place] Laxative aspirin-ome No 1 tab, PO, Memoria prazole 325 8-18 Daily, 0 l mg-40 mg 20:29: Refill(s) Herm joss oral 00 delayed release tablet Centrum Yes PO, Daily, Jairo frida Silver 8-18 0 l Ultra 20:29: Refill(s) [place] Claritin Yes 10 mg = 1 Jairo frida 8-18 tab, PO, l 20:29: Daily, PRN [place] 00 Itching / rash / allergy symptoms, # 20 tab, 0 Refill(s) Stool Yes PO, Memoria Softener 8-18 Bedtime, 0 l with 20:29: Refill(s) [place] Laxative aspirin-ome No 1 tab, PO, Memoria prazole 325 8-18 Daily, 0 l mg-40 mg 20:29: Refill(s) [place] joss oral 00 delayed release tablet Centrum 0 Yes PO, Daily, Jairo frida Silver 8-18 0 l Ultra 20:29: Refill(s) [place] Claritin Yes 10 mg = 1 Jairo frida 8-18 tab, PO, l 20:29: Daily, PRN [place] 00 Itching / rash / allergy symptoms, # 20 tab, 0 Refill(s) Stool 0 Yes PO, Memoria Softener 8-18 Bedtime, 0 l with 20:29: Refill(s) [place] Laxative aspirin-ome No 1 tab, PO, Memoria prazole 325 8-18 Daily, 0 l mg-40 mg 20:29: Refill(s) [place] joss oral 00 delayed release tablet Centrum Yes PO, Daily, Jairo frida Silver 8-18 0 l Ultra 20:29: Refill(s) [place] Claritin Yes 10 mg = 1 Jairo frida 8-18 tab, PO, l 20:29: Daily, PRN [place] 00 Itching / rash / allergy symptoms, # 20 tab, 0 Refill(s) aspirin-ome No 1 tab, PO, Memoria prazole 325 8-18 Daily, 0 l mg-40 mg 20:29: Refill(s) [place] joss oral 00 delayed release tablet Stool Yes PO, Memoria Softener 8-18 Bedtime, 0 l with 20:29: Refill(s) [place] Laxative 00 Centrum Yes PO, Daily, Jairo frida Silver 8-18 0 l Ultra 20:29: Refill(s) [place] aspirin-ome No 1 tab, PO, Memoria prazole [...] 0 l with 20:29: Refill(s) [place] Laxative Claritin Yes 10 mg = 1 Jairo [...] Silver 8-18 0 l Ultra 20:29: Refill(s) [place] Claritin Yes 10 mg = 1 Jairo frida 8-18 tab, PO, l 20:29: Daily, PRN [place] 00 Itching / rash / allergy symptoms, # 20 tab, 0 Refill(s) Stool Yes PO, Memoria Softener 8-18 Bedtime, 0 l with 20:29: Refill(s) [place] Laxative 00 Stool Yes PO, Memoria Softener 8-18 Bedtime, 0 l with 20:29: Refill(s) [place] Laxative aspirin-ome No 1 tab, PO, Memoria prazole 325 8-18 Daily, 0 l mg-40 mg 20:29: Refill(s) Herm joss oral 00 delayed release tablet Centrum Yes PO, Daily, Jairo frida Silver 8-18 0 l Ultra 20:29: Refill(s) [place] Claritin Yes 10 mg = 1 Jairo frida 8-18 tab, PO, l 20:29: Daily, PRN [place] 00 Itching / rash / allergy symptoms, # 20 tab, 0 Refill(s) Stool Yes PO, Memoria Softener 8-18 Bedtime, 0 l with 20:29: Refill(s) [place] Laxative aspirin-ome No 1 tab, PO, Memoria prazole 325 8-18 Daily, 0 l mg-40 mg 20:29: Refill(s) [place] joss oral 00 delayed release tablet Centrum Yes PO, Daily, Jairo frida Silver 8-18 0 l Ultra 20:29: Refill(s) [place] Claritin Yes 10 mg = 1 Jairo [...] Silver 8-18 0 l Ultra 20:29: Refill(s) [place] Claritin Yes 10 mg = 1 Jairo [...] Silver 8-18 0 l Ultra 20:29: Refill(s) [place] Claritin Yes 10 mg = 1 Jairo frida 8-18 tab, PO, l 20:29: Daily, PRN [place] 00 Itching / rash / allergy symptoms, # 20 tab, 0 Refill(s) Stool Yes PO, Memoria Softener 8-18 Bedtime, 0 l with 20:29: Refill(s) [place] Laxative aspirin-ome No 1 tab, PO, Memoria prazole 325 8-18 Daily, 0 l mg-40 mg 20:29: Refill(s) [place] joss oral 00 delayed release tablet Centrum Yes PO, Daily, Jairo frida Silver 8-18 0 l Ultra 20:29: Refill(s) [place] Claritin Yes 10 mg = 1 Jairo frida 8-18 tab, PO, l 20:29: Daily, PRN [place] 00 Itching / rash / allergy symptoms, # 20 tab, 0 Refill(s) Stool 0 Yes PO, Memoria Softener 8-18 Bedtime, 0 l with 20:29: Refill(s) [place] Laxative 00 cephalexin Yes 500 mg = 1 M emoria 500 mg oral 8-18 cap, PO, l capsule 20:28: QID, # 20 Macey nn 00 cap, 0 Refill(s) furosemide Yes 80 mg = 1 Me moria 80 mg oral 8-18 tab, PO, l tablet 20:28: Daily, # [place] 00 90 tab, 0 Refill(s) Insulin Yes [...] tab, PO, l tablet 20:28: Daily, # [place] 00 90 tab, 0 Refill(s) Insulin Yes [...] tab, PO, l tablet 20:28: Daily, # [place] 00 90 tab, 0 Refill(s) Insulin 0 [...] tab, PO, l tablet 20:28: Daily, # [place] 00 90 tab, 0 Refill(s) Insulin 0 Yes 1 unit, Memoria Lispro 100 8-18 SUB-Q, 0 l UNT/ML 20:28: Refill(s) Jacob n Injectable 00 Solution [Humalog] cephalexin Yes 500 mg = 1 M emoria 500 mg oral 8-18 cap, PO, l capsule 20:28: QID, # 20 Amcey nn 00 cap, 0 Refill(s) furosemide 0 Yes 80 mg = 1 Me moria 80 mg oral 8-18 tab, PO, l tablet 20:28: Daily, # [place] 00 90 tab, 0 Refill(s) Insulin 0 [...] tab, PO, l tablet 20:28: Daily, # [place] 00 90 tab, 0 Refill(s) Insulin 0 [...] tab, PO, l tablet 20:28: Daily, # [place] 00 90 tab, 0 Refill(s) Insulin 0 [...] tab, PO, l tablet 20:28: Daily, # [place] 00 90 tab, 0 Refill(s) Insulin 0 [...] Macey nn 00 cap, 0 Refill(s) furosemide 2021-0 Yes 80 mg = 1 Me moria 80 mg oral 8-18 tab, PO, l tablet 20:28: Daily, # [place] 00 90 tab, 0 Refill(s) Insulin 0 [...] Jacob n Injectable 00 Solution [Humalog] cephalexin 2021-0 Yes 500 mg = 1 M emoria 500 mg oral 8-18 cap, PO, l capsule 20:28: QID, # 20 Macey nn 00 cap, 0 Refill(s) furosemide Yes 80 mg = 1 Me moria 80 mg oral 8-18 tab, PO, l tablet 20:28: Daily, # [place] 00 90 tab, 0 Refill(s) Insulin 0 [...] tab, PO, l tablet 20:28: Daily, # [place] 00 90 tab, 0 Refill(s) Insulin Yes [...] tab, PO, l tablet 20:28: Daily, # [place] 00 90 tab, 0 Refill(s) Insulin Yes [...] tab, PO, l tablet 20:28: Daily, # [place] 00 90 tab, 0 Refill(s) Insulin Yes [...] tab, PO, l tablet 20:28: Daily, # [place] 00 90 tab, 0 Refill(s) Insulin 0 [...] tab, PO, l tablet 20:28: Daily, # [place] 00 90 tab, 0 Refill(s) Insulin 0 Yes 1 unit, Memoria Lispro 100 8-18 SUB-Q, 0 l UNT/ML 20:28: Refill(s) [place] n Injectable 00 Solution [Humalog] cephalexin 2021-0 Yes 500 mg = 1 M emoria [...] tab, PO, l tablet 20:28: Daily, # [place] 00 90 tab, 0 Refill(s) Insulin Yes [...] Macey nn 00 cap, 0 Refill(s) cephalexin Yes 500 mg = [...] [place] n Injectable 00 Solution [Humalog] furosemide Yes 80 mg = 1 Me moria 80 mg oral 8-18 tab, PO, l tablet 20:28: Daily, # [place] 00 90 tab, 0 Refill(s) cephalexin Yes 500 mg = 1 M emoria 500 mg oral 8-18 cap, PO, l capsule 20:28: QID, # 20 Macey nn 00 cap, 0 Refill(s) furosemide Yes 80 mg = 1 Me moria 80 mg oral 8-18 tab, PO, l tablet 20:28: Daily, # [place] 00 90 tab, 0 Refill(s) Insulin Yes 1 unit, Memoria Lispro 100 8-18 SUB-Q, 0 l UNT/ML 20:28: Refill(s) [place] n Injectable 00 Solution [Humalog] Insulin 0 Yes 1 unit, Memoria Lispro [...] tab, PO, l tablet 20:28: Daily, # [place] 00 90 tab, 0 Refill(s) Insulin Yes [...] tab, PO, l tablet 20:28: Daily, # [place] 00 90 tab, 0 Refill(s) Insulin Yes [...] Refill(s) [place] Injectable 00 Solution [Humalog] tramadol Yes 50 mg = 1 Jairo [...] tab, PO, l tablet 20:27: Daily, # [place] 00 90 tab, 1 Refill(s) Metoprolol 0 [...] tab, PO, l tablet 20:27: Daily, # [place] 00 90 tab, 1 Refill(s) Metoprolol 0 [...] tab, PO, l tablet 20:27: Daily, # [place] 00 90 tab, 1 Refill(s) Metoprolol 0 [...] tab, PO, l tablet 20:27: Daily, # [place] 00 90 tab, 1 Refill(s) Metoprolol 0 [...] tab, PO, l tablet 20:27: Daily, # [place] 00 90 tab, 1 Refill(s) Metoprolol 0 [...] tab, PO, l tablet 20:27: Daily, # [place] 00 90 tab, 1 Refill(s) Metoprolol 0 [...] tab, PO, l tablet 20:27: Daily, # [place] 00 90 tab, 1 Refill(s) Metoprolol 2020-0 [...] tab, PO, l tablet 20:27: Daily, # [place] 00 90 tab, 1 Refill(s) Metoprolol Yes [...] Oral Tablet 00 tab, 0 Refill(s) levothyroxi 2021-0 Yes 150 Memori a ne 150 mcg [...] tab, PO, l tablet 20:27: Daily, # [place] 00 90 tab, 1 Refill(s) Metoprolol 0 [...] tab, PO, l tablet 20:27: Daily, # [place] 00 90 tab, 1 Refill(s) Metoprolol 2021-0 Yes 25 mg = 1 Me moria [...] tab, PO, l tablet 20:27: Daily, # [place] 00 90 tab, 1 Refill(s) Metoprolol Yes [...] tab, PO, l tablet 20:27: Daily, # [place] 00 90 tab, 1 Refill(s) Metoprolol Yes [...] tab, PO, l tablet 20:27: Daily, # [place] 00 90 tab, 1 Refill(s) Metoprolol Yes [...] tramadol 0 Yes 50 mg = 1 Jario frida hydrochlori 8-18 tab, PO, l de [...] tab, PO, l tablet 20:27: Daily, # [place] 00 90 tab, 1 Refill(s) Metoprolol Yes [...] PO, Daily, # 30 tab, 0 Refill(s) levothyroxi Yes 150 Memori [...] joss Oral Tablet 00 tab, 0 Refill(s) lisinopril Yes 5 mg = 1 Mem oria 5 mg oral 8-18 tab, PO, l tablet 20:27: Daily, # [place] 00 90 tab, 1 Refill(s) levothyroxi Yes 150 Memori a ne 150 mcg 8-18 microgram l (0.15 mg) 20:27: = 1 tab, Herm joss oral tablet 00 PO, Daily, # 30 tab, 0 Refill(s) lisinopril Yes 5 mg = 1 Mem oria 5 mg oral 8-18 tab, PO, l tablet 20:27: Daily, # [place] 00 90 tab, 1 Refill(s) Metoprolol Yes [...] joss Oral Tablet 00 tab, 0 Refill(s) Metoprolol 0 Yes 25 mg = [...] # [place] 90 tab, 1 Refill(s) Metoprolol 2020-0 Yes [...] tab, PO, l tablet 20:27: Daily, # [place] 00 90 tab, 1 Refill(s) Metoprolol 2020-0 [...] tab, PO, l tablet 20:27: Daily, # [place] 00 90 tab, 1 Refill(s) Metoprolol Yes [...] tab, PO, l tablet 20:27: Daily, # [place] 00 90 tab, 1 Refill(s) Metoprolol Yes [...] 90 tab, 0 tablet, Refill(s) extended release 3 ML Yes 10 unit, Memoria Insulin [...] Intra-op water for Yes PRN, Univers irrigation 408 Starting ity o f irrigation 17:29: [place] 10/14/20 [place] solution 00 at 1229, Medical Until Branch Discontinu ed, Routine, Intra-op NaCl 0.9% Yes PRN, Univers (NS) 408 Starting ity of injection 17:28: [place] 10/14/20 [...] block 0 Yes PRN, Univers syringe 11 08 Starting ity o f mL 17:27: [place] 10/14/20 [place] 00 at 1227, Medical Until Branch Discontinu ed, Intra-op EPINEPHrine Yes PRN, Univer s (PF) -08 Starting ity of 1:1,000 (1 17:26: [place]le [...] Routine, Intra-op ceFAZolin Yes PRN, Univers (ANCEF) - Starting ity of injection 17:25: [place] 10/14/20 [place] 00 at 1225, Medical Until Branch Discontinu ed, VIOLETTA, Intra-op balanced 0 Yes PRN, Univers salt soln 08 Starting ity of no.2 irrig. 17:25: [place] 10/14/20 [place] (BSS) 00 at 1225, Medical ophthalmic Until Branch solution Discontinu ed, Routine, Intra-op insulin Yes 30U inject 30 Unive rs lispro 4-08 Units ity of (HUMALOG 14:34: [place] 02 skin 3 Medical KWIKPEN (three) Branch U-100) 100 times unit/mL daily. inph Insulin Yes 45U inject 45 Unive rs Glargine 4-08 Units ity of (LANTUS 14:34: under the [place] SOLOSTAR 02 skin 2 Medical U-100 (two) Branch INSULIN) times 100 unit/mL daily. (3 mL) injection amLODIPine Yes 10mg Take 10 mg U nivers 10 mg 4-08 by mouth ity of tablet 14:34: daily. [place] [address] Medical Branch buPROPion Yes 150mg Take 150 [...] 4-08 by mouth ity of 14:34: daily. [place] 02 Medical Branch metoprolol Yes 50mg Take 50 mg U nivers succinate 4-08 by mouth 2 ity of XL 50 mg 24 14:34: (two) [place] hr tablet 02 times Medical daily. Branch pantoprazol Yes 40mg Take 40 mg Univers e 40 mg EC 4-08 by mouth ity o f tablet 14:34: daily. [place] 02 Medical Branch Levothyroxi Yes 150ug Take 150 U nivers ne 100 mcg 4-08 mcg by ity of capsule 14:34: mouth [place] 02 daily. Medical Branch aspirin 325 Yes 325mg Take 325 U nivers mg tablet 4-08 mg by ity of 14:34: mouth [place] 02 daily. Medical Branch Cholecalcif Yes Take by Uni vers daryl, 4-08 mouth. ity of Vitamin D3, 14:34: [place] (VITAMIN [facility] D3) 25 mcg [...] Branch syringe 0745, Routine, DSU Pre-op lactated No 1000mL at 42 Unive rs ringers IV 4-08 04-08 mL/hr, ity of infusion 12:45: 13:20 1,000 mL, [place] as 1,000 mL 00 :00 IV Medical Infusion, Branch ONCE, 1 dose, [place] 10/14/20 at 0745, Routine, DSU Pre-op insulin Yes 30U inject 30 Unive rs lispro 4-08 Units ity of (HUMALOG 09:34: under the [facility] 02 skin 3 Medical KWIKPEN (three) Branch U-100) 100 times unit/mL daily. inph Insulin Yes 45U inject 45 Unive rs Glargine 4-08 Units ity of (LANTUS 09:34: under the [place] SOLOSTME 02 skin 2 Medical U-100 (two) Branch INSULIN) times 100 unit/mL daily. (3 mL) injection amLODIPine Yes 10mg Take 10 mg U nivers 10 mg 4-08 by mouth ity of tablet 09:34: daily. [place] [address] Medical Branch buPROPion Yes 150mg Take 150 [...] 4-08 by mouth ity of 09:34: daily. [place] [address] Medical Branch metoprolol Yes 50mg Take 50 mg U nivers succinate 4-08 by mouth 2 ity of XL 50 mg 24 09:34: (two) [place] hr tablet 02 times Medical daily. Branch pantoprazol Yes 40mg Take 40 mg Univers e 40 mg EC 4-08 by mouth ity o f tablet 09:34: daily. [place] [address] Medical Branch Levothyroxi Yes 150ug Take 150 U nivers ne 100 mcg 4-08 mcg by ity of capsule 09:34: mouth daily. Medical Branch aspirin 325 Yes 325mg Take 325 U nivers mg tablet 4-08 mg by ity of 09:34: mouth daily. Medical Branch Cholecalcif Yes Take by Uni vers daryl, 4-08 mouth. ity of Vitamin D3, 09:34: (VITAMIN [facility] D3) 25 mcg Branch (1,000 unit) capsule folic Yes Take by Univers acid/multiv 4-08 mouth ity of it-min/lute 09:34: [place]. [place] in (CENTRUM 02 Medical SILVER Branch ORAL) insulin 2019- Yes 30U [id number] Inject 30 Methodi lispro 1-[id number] (HumaLOG 00:00: 3D under the [facility] U-100 00 skin 3 l Insulin) (three) 100 unit/mL times a injection day before meals. insulin 2019- Yes 30U [id number] Inject 30 Methodi lispro 1-[id number] (HumaLOG 00:00: 3D under the [facility] U-100 00 skin 3 l Insulin) (three) 100 unit/mL times a injection day before meals. insulin 2020- Yes 30U [id number] Inject 30 [facility]i lispro 1-[id number] (HumaLOG 00:00: 3D under the [facility] U-100 00 skin 3 l Insulin) (three) 100 unit/mL times a injection day before meals. insulin 2019- Yes 30U [id number] Inject 30 Methodi lispro 1-[id number] (HumaLOG 00:00: 3D under the [facility] U-100 00 skin 3 l Insulin) (three) 100 unit/mL times a injection day before meals. insulin 2020- Yes 30U [id number] Inject 30 Methodi lispro 1-[id number] (HumaLOG 00:00: 3D under the [facility] U-100 00 skin 3 l Insulin) (three) 100 unit/mL times a injection day before meals. insulin 2020- Yes 30U [id number] Inject 30 Methodi lispro 1-[id number] (HumaLOG 00:00: 3D under the [facility] U-100 00 skin 3 l Insulin) (three) 100 unit/mL times a injection day before meals. insulin 2020-1 Yes 30U [id number] Inject 30 Methodi lispro 1-[id number] (HumaLOG 00:00: 3D under the [facility] U-100 00 skin 3 l Insulin) (three) 100 unit/mL times a injection day before meals. insulin 2020-1 Yes 30U [id number] Inject 30 Methodi lispro 1-[id number] (HumaLOG 00:00: 3D under the [facility] U-100 00 skin 3 l Insulin) (three) 100 unit/mL times a injection day before meals. insulin 2020-1 Yes 30U [id number] Inject 30 Methodi lispro 1-[id number] (HumaLOG 00:00: 3D under the [facility] U-100 00 skin 3 l Insulin) (three) 100 unit/mL times a injection day before meals. insulin 2020-1 Yes 30U [id number] Inject 30 Methodi lispro 1-[id number] (HumaLOG 00:00: 3D under the [facility] U-100 00 skin 3 l Insulin) (three) 100 unit/mL times a injection day before meals. insulin 2020-1 Yes 30U [id number] Inject 30 Methodi lispro 1-[id number] (HumaLOG 00:00: 3D under the [facility] U-100 00 skin 3 l Insulin) (three) 100 unit/mL times a injection day before meals. insulin 2020-1 Yes 30U [id number] Inject 30 Methodi lispro 1-[id number] (HumaLOG 00:00: 3D under the [facility] U-100 00 skin 3 l Insulin) (three) 100 unit/mL times a injection day before meals. insulin 2020-1 Yes 30U [id number] Inject 30 Methodi lispro 1-[id number] (HumaLOG 00:00: 3D under the [facility] U-100 00 skin 3 l Insulin) (three) 100 unit/mL times a injection day before meals. insulin 2020-0 Yes 30U inject 30 Unive rs lispro 9-24 Units ity of (HUMALOG 16:37: under the [facility] s DESTIN 58 skin 3 Medical KWIKPEN (three) Branch U-100) 100 times unit/mL daily. inph Insulin 2020-0 Yes 45U inject 45 Unive rs Glargine 9-24 Units ity of (LANTUS 16:37: under the [place] SOLOSTAR 58 skin 2 Medical U-100 (two) Branch INSULIN) times 100 unit/mL daily. (3 mL) injection amLODIPine 2020-0 Yes 10mg Take 10 mg U nivers 10 mg 9-24 by mouth ity of tablet 16:37: daily. [place] [address] Medical Branch buPROPion 2020-0 Yes 150mg Take [...] by mouth ity of tablet 16:37: daily. [place] [address] Medical Branch metoprolol 2020-0 Yes 50mg Take 50 mg U nivers succinate 9-24 by mouth 2 ity of XL 50 mg 24 16:37: (two) [place] hr tablet 58 times Medical daily. Branch pantoprazol 2020-0 Yes 40mg Take 40 mg Univers e 40 mg EC 9-24 by mouth ity o f tablet 16:37: daily. [place] [address] Medical Branch Levothyroxi 2020-0 Yes 150ug Take [...] 9-24 mouth. ity of Vitamin D3, 16:37: [place] (VITAMIN [address] [place] [address] D3) 25 mcg Branch (1,000 unit) capsule folic 2020-0 Yes Take by Univers acid/multiv 9-24 mouth ity of it-min/lute 16:37: daily. [facility] in (CENTRUM 58 Medical SILVER Branch ORAL) insulin 2020-0 Yes 30U inject 30 Unive rs lispro 9-24 Units ity of (HUMALOG 16:37: under the [facility] s DESTIN 58 skin 3 Medical KWIKPEN (three) Branch U-100) 100 times unit/mL daily. inph Insulin 2020-0 Yes 45U inject 45 Unive rs Glargine 9-24 Units ity of (LANTUS 16:37: under the [place] SOLOSTAR 58 skin 2 Medical U-100 (two) Branch INSULIN) times 100 unit/mL daily. (3 mL) injection amLODIPine 2020-0 Yes 10mg Take 10 mg U nivers 10 mg 9-24 by mouth ity of tablet 16:37: daily. [place] [address] Medical Branch buPROPion 2020-0 Yes 150mg Take [...] by mouth ity of tablet 16:37: daily. [place] [address] Medical Branch metoprolol 2020-0 Yes 50mg Take 50 mg U nivers succinate 9-24 by mouth 2 ity of XL 50 mg 24 16:37: (two) [place] hr tablet 58 times Medical daily. Branch pantoprazol 2020-0 Yes 40mg Take 40 mg Univers e 40 mg EC 9-24 by mouth ity o f tablet 16:37: daily. [place] [address] Medical Branch Levothyroxi 2020-0 Yes 150ug Take [...] 9-24 mouth. ity of Vitamin D3, 16:37: [place] (VITAMIN Medical D3) 25 mcg Branch (1,000 unit) capsule folic 2020-0 Yes Take by Univers acid/multiv 9-24 mouth ity of it-min/lute 16:37: daily. [place] in (CENTRUM 58 Medical SILVER Branch ORAL) insulin 2020-0 Yes 30U inject 30 Unive rs lispro 9-24 Units ity of (HUMALOG 16:37: under the [facility] s DESTIN 58 skin 3 Medical KWIKPEN (three) Branch U-100) 100 times unit/mL daily. inph Insulin 2020-0 Yes 45U inject 45 Unive rs Glargine 9-24 Units ity of (LANTUS 16:37: under the [place] SOLOSTAR 58 skin 2 Medical U-100 (two) Branch INSULIN) times 100 unit/mL daily. (3 mL) injection amLODIPine 2020-0 Yes 10mg Take 10 mg U nivers 10 mg 9-24 by mouth ity of tablet 16:37: daily. [place] [address] Medical Branch buPROPion 2020-0 Yes 150mg Take [...] by mouth ity of tablet 16:37: daily. [place] [address] Medical Branch metoprolol 2020-0 Yes 50mg Take 50 mg U nivers succinate 9-24 by mouth 2 ity of XL 50 mg 24 16:37: (two) [place] hr tablet 58 times Medical daily. Branch pantoprazol 2020-0 Yes 40mg Take 40 mg Univers e 40 mg EC 9-24 by mouth ity o f tablet 16:37: daily. [place] [address] Medical Branch Levothyroxi 2020-0 Yes 150ug Take [...] 9-24 mouth. ity of Vitamin D3, 16:37: [place] (VITAMIN [address] [place] [address] D3) 25 mcg Branch (1,000 unit) capsule folic 2020-0 Yes Take by Univers acid/multiv 9-24 mouth ity of it-min/lute 16:37: daily. [place] in (CENTRUM 58 Medical SILVER Branch ORAL) insulin 2020-0 Yes 30U inject 30 Unive rs lispro 9-24 Units ity of (HUMALOG 16:37: [place] the [place] DE[place] 58 skin 3 Medical KWIKPEN (three) Branch U-100) 100 times unit/mL daily. inph Insulin 2020-0 Yes 45U inject 45 Unive rs Glargine 9-24 Units ity of (LANTUS 16:37: under the [place] SOLOSTAR 58 skin 2 Medical U-100 (two) Branch INSULIN) times 100 unit/mL daily. (3 mL) injection amLODIPine 2020-0 Yes 10mg Take 10 mg U nivers 10 mg 9-24 by mouth ity of tablet 16:37: daily. [place] [address] Medical Branch buPROPion 2020-0 Yes 150mg Take [...] by mouth ity of tablet 16:37: daily. [place] [address] Medical Branch metoprolol 2020-0 Yes 50mg Take 50 mg U nivers succinate 9-24 by mouth 2 ity of XL 50 mg 24 16:37: (two) [place] hr tablet 58 times Medical daily. Branch pantoprazol 2020-0 Yes 40mg Take 40 mg Univers e 40 mg EC 9-24 by mouth ity o f tablet 16:37: daily. [place] [address] Medical Branch Levothyroxi 2020-0 Yes 150ug Take [...] 9-24 mouth. ity of Vitamin D3, 16:37: [place] (VITAMIN [address] [place] [address] D3) 25 mcg [place] (1,000 unit) capsule folic 2020-0 Yes Take by Univers acid/multiv 9-24 mouth ity of it-min/lute 16:37: daily. [place] in (CENTRUM 58 Medical SILVER Branch ORAL) insulin 2020-0 Yes 30U inject 30 Unive rs lispro 9-24 Units ity of (HUMALOG 13:50: under the [facility] s DESTIN 18 skin 3 Medical KWIKPEN (three) Branch U-100) 100 times unit/mL daily. inph Insulin 2020-0 Yes 45U inject 45 Unive rs Glargine 9-24 Units ity of (LANTUS 13:50: under the [place] SOLOSTAR 18 skin 2 Medical U-100 (two) Branch INSULIN) times 100 unit/mL daily. (3 mL) injection amLODIPine 2020-0 Yes 10mg Take 10 mg U nivers 10 mg 9-24 by mouth ity of tablet 13:50: daily. [place] [address] Medical Branch buPROPion 2020-0 Yes 150mg Take [...] ity of tablet 13:50: daily. [place] [address] Medical Branch metoprolol 2020-0 Yes 50mg Take 50 mg U nivers succinate 9-24 by mouth 2 ity of XL 50 mg 24 13:50: (two) [place] hr tablet 18 times Medical daily. Branch pantoprazol 2020-0 Yes 40mg Take 40 mg Univers e 40 mg EC 9-24 by mouth ity o f tablet 13:50: daily. [place] [address] Medical Branch Levothyroxi 2020-0 Yes 150ug Take [...] 9-24 mouth. ity of Vitamin D3, 13:50: [place] (VITAMIN [address] [place] [address] D3) 25 mcg Branch (1,000 unit) capsule folic 2020-0 Yes Take by Univers acid/multiv 9-24 mouth ity of it-min/lute 13:50: daily. [place] in (CENTRUM 18 Medical SILVER Branch ORAL) insulin 2020-0 Yes 30U inject 30 Unive rs lispro 9-24 Units ity of (HUMALOG 13:50: under the [facility] s DESTIN 18 skin 3 Medical KWIKPEN (three) Branch U-100) 100 times unit/mL daily. inph Insulin 2020-0 Yes 45U inject 45 Unive rs Glargine 9-24 Units ity of (LANTUS 13:50: under the [place] SOLOSTAR 18 skin 2 Medical U-100 (two) Branch INSULIN) times 100 unit/mL daily. (3 mL) injection amLODIPine 2020-0 Yes 10mg Take 10 mg U nivers 10 mg 9-24 by mouth ity of tablet 13:50: daily. [place] [address] Medical Branch buPROPion 2020-0 Yes 150mg Take [...] ity of tablet 13:50: daily. [place] [address] Medical Branch metoprolol 2020-0 Yes 50mg Take 50 mg U nivers succinate 9-24 by mouth 2 ity of XL 50 mg 24 13:50: (two) [place] hr tablet 18 times Medical daily. Branch pantoprazol 2020-0 Yes 40mg Take 40 mg Univers e 40 mg EC 9-24 by mouth ity o f tablet 13:50: daily. [place] [address] Medical Branch Levothyroxi 2020-0 Yes 150ug Take [...] 9-24 mouth. ity of Vitamin D3, 13:50: [place] (VITAMIN [address] [place] [address] D3) 25 mcg Branch (1,000 unit) capsule [...] 13:04: 13:33 INTRA [place] 00 :17 PROCEDURE, [facility] Starting Branch Krystle 04/01/20 at [...] 13:02: 13:33 INTRA [place] 00 :17 PROCEDURE, [facility] Starting [facility] 04/01/20 at 0802, Until [facility] 04/01/20 at 0833, Routine, Intra-op lactated 2020-0 2020- No IV Univers ringers IV 04-01 Infusion, ity of infusion 13:01: 13:33 CONTINUOUS [place] 00 :17 PRN, [facility] 04/01/20 at 0801, Until [facility] 04/01/20 at 0833, Routine, Intra-op lactated 2020-0 2020- No IV Univers ringers IV 04-01 Infusion, ity of infusion 13:01: 13:33 CONTINUOUS [place] 00 :17 PRN, [facility] Starting [facility] 04/01/20 at 0801, Until [facility] 04/01/20 at 0833, Routine, Intra-op tetracaine 2020-0 Yes PRN, Univers (PONTOCAINE 04-01 Starting ity of ) 0.5 % 12:53: [place] ophthalmic 04/01/20 at [facility] ica drops [address] [place] [address] Until Discontinu ed, Routine, Intra-op water for 2020-0 Yes PRN, Univers irrigation 04-01 Starting ity o f irrigation 12:53: Krystle [place] solution 04/01/[address] Until Discontinu ed, Routine, Intra-op NaCl 0.9% 2020-0 Yes PRN, Univers (NS) 04-01 Starting ity of injection 12:52: [place] [place] 04/01/[address] Until Discontinu ed, Routine, Intra-op neomycin-po 2020-0 Yes PRN, Univer s lymyxin-dex 04-01 Starting ity of amethasone 12:52: [facility]ryst[facility] [place] (MAXITROL) 04/01/20 at [facility] 3.[address] [place] [address] mg/g-10,000 Until unit/g-0.1 Discontinu % ed, ophthalmic Routine, ointment Intra-op gentamicin 2020-0 Yes PRN, Univers injection 04-01 Starting ity of 12:52: [facility] [place] 04/01/[address] Until Discontinu ed, VIOLETTA, Intra-op eye block 2020-0 Yes PRN, Univers syringe 11 04-01 Starting ity o f mL 12:51: [facility] [place] 04/01/[address] Until Discontinu ed, Intra-op EPINEPHrine 2020-0 Yes PRN, Univer s (PF) 04-01 Starting ity of 1:1,000 (1 12:51: [place] [place] mg/mL) 04/01/20 at [facility] (ADRENALIN [facility], [place] (PF)) Until injection Discontinu ed, Routine, Intra-op DUOVISC 2020-0 Yes PRN, Univers (DUOVISC 04-01 Starting ity of VISCO 12:51: [place]rystle [place] ELASTIC) 3 04/01/20 at [facility] ical %-4 %(0.5 075, [place] mL) 1 % Until (0.55 mL) Discontinu intraocular ed, injection Routine, Intra-op dexamethaso 2020-0 Yes PRN, Univer s ne 04-01 Starting ity of (DECADRON 12:50: [place] PHOSPHATE) 04/01/20 at [facility] ical injection [address] [place] [address] Until Discontinu ed, Routine, Intra-op ceFAZolin 2020-0 Yes PRN, Univers (ANCEF) 04-01 Starting ity of injection 12:50: [place] [place] 00 04/01/[address] Until Discontinu ed, VIOLETTA, Intra-op balanced 2020-0 Yes PRN, Univers salt soln 04-01 Starting ity of no.2 irrig. 12:49: [place]rystle [place] (BSS) 04/01/20 at [facility] ophthalmic 0749, [place] solution Until Discontinu ed, Routine, Intra-op lactated 2020-0 2020- No 1000mL at 20 [facility] rs ringers IV 04-01 mL/hr, ity of infusion 12:00: 12:17 1,000 mL, [place] as 1,000 mL 00 :00 IV Medical Infusion, [place] ONCE, 1 dose, Krystle 04/01/20 at 0700, [...] Q.5D Take 50 mg M ethodi succinate [address] XL 00:00: (two) [...] 00:00: mouth [facility] 00 every l morning. amLODIPine amLODIPine No 1{table QD amLODIPine Besylate [...] [facility] No [facility] Women Women Women Immunizations Ordered Filled Date Status Comments Source Immunization Name Immunization Name [place] [id number] 2021-07-27 Completed Religion MRNA VACCINATION 00:00:00 [place] [address] 2021-07-27 Completed Religion MRNA VACCINATION 00:00:00 [place] [address] 2021-07-27 Completed Religion MRNA VACCINATION 00:00:00 [place] [address] 2021-07-27 Completed Religion MRNA VACCINATION 00:00:00 [place] [address] 2021-07-27 Completed Religion MRNA VACCINATION 00:00:00 Hospital PFIZER COVID-19 2021-07-27 Completed Religion MRNA VACCINATION 00:00:00 Hospital PFIZER COVID-19 2021-07-27 Completed Religion MRNA VACCINATION 00:00:00 Hospital PFIZER COVID-19 2021-07-27 Completed Religion MRNA VACCINATION 00:00:00 Hospital PFIZER COVID-19 2021-07-27 Completed Religion MRNA VACCINATION 00:00:00 Hospital PFIZER COVID-19 2021-07-27 Completed Religion MRNA VACCINATION 00:00:00 Hospital PFIZER COVID-19 2021-07-27 Completed Religion MRNA VACCINATION 00:00:00 Hospital PFIZER COVID-19 2021-07-27 Completed Religion MRNA VACCINATION 00:00:00 [facility] SARS-COV-2 COVID-19 2021-07-27 Completed Unive rsity of PFIZER VACCINE 00:00:00 [facility] SARS-COV-2 COVID-19 2021-07-27 Completed Unive rsity of PFIZER VACCINE 00:00:00 [facility] SARS-COV-2 COVID-19 2021-07-27 Completed Unive rsity of PFIZER VACCINE 00:00:00 [facility] SARS-COV-2 COVID-19 2021-07-27 Completed Unive rsity of PFIZER VACCINE 00:00:00 [facility] SARS-COV-2 COVID-19 2021-07-27 Completed Unive rsity of PFIZER VACCINE 00:00:00 [facility] Influenza Virus 2021-04-20 Completed Universit y of Vaccine 00:00:00 [facility] Influenza Virus 2021-04-20 Completed Universit y of Vaccine 00:00:00 [facility] Influenza Virus 2021-04-20 Completed Universit y of Vaccine 00:00:00 [facility] Influenza Virus 2021-04-20 Completed Universit y of Vaccine 00:00:00 [facility] Influenza Virus 2021-04-20 Completed Universit y of Vaccine 00:00:00 [facility] PFIZER COVID-19 2021-02-25 Completed Religion MRNA VACCINATION 00:00:00 [facility] PFIZER COVID-19 2021-02-25 Completed Religion MRNA VACCINATION 00:00:00 Hospital PFIZER COVID-19 2021-02-25 Completed Religion MRNA VACCINATION 00:00:00 [facility] PFIZER COVID-19 2021-02-25 Completed Religion MRNA VACCINATION 00:00:00 Hospital PFIZER COVID-19 2021-02-25 Completed Religion MRNA VACCINATION 00:00:00 Hospital PFIZER COVID-19 2021-02-25 Completed Religion MRNA VACCINATION 00:00:00 [facility] PFIZER COVID-19 2021-02-25 Completed Religion MRNA VACCINATION 00:00:00 Hospital PFIZER COVID-19 2021-02-25 Completed Religion MRNA VACCINATION 00:00:00 Hospital PFIZER COVID-19 2021-02-25 Completed Religion MRNA VACCINATION 00:00:00 [facility] PFIZER COVID-19 2021-02-25 Completed Religion MRNA VACCINATION 00:00:00 [facility] PFIZER COVID-19 2021-02-25 Completed Religion MRNA VACCINATION 00:00:00 [facility] PFIZER COVID-19 2021-02-25 Completed Religion MRNA VACCINATION 00:00:00 [facility] SARS-COV-2 COVID-19 2021-02-25 Completed Unive rsity of PFIZER VACCINE 00:00:00 [facility] SARS-COV-2 COVID-19 2021-02-25 Completed Unive rsity of PFIZER VACCINE 00:00:00 [facility] SARS-COV-2 COVID-19 2021-02-25 Completed Unive rsity of PFIZER VACCINE 00:00:00 [facility] SARS-COV-2 COVID-19 2021-02-25 Completed Unive rsity of PFIZER VACCINE 00:00:00 [facility] SARS-COV-2 COVID-19 2021-02-25 Completed Unive rsity of PFIZER VACCINE 00:00:00 [facility] PFIZER COVID-19 2021-01-06 Completed Religion MRNA VACCINATION 00:00:00 [facility] PFIZER COVID-19 2021-01-06 Completed Religion MRNA VACCINATION 00:00:00 Hospital PFIZER COVID-19 2021-01-06 Completed Religion MRNA VACCINATION 00:00:00 Hospital PFIZER COVID-19 2021-01-06 Completed Religion MRNA VACCINATION 00:00:00 [facility] PFIZER COVID-19 2021-01-06 Completed Religion MRNA VACCINATION 00:00:00 Hospital PFIZER COVID-19 2021-01-06 Completed Religion MRNA VACCINATION 00:00:00 [facility] PFIZER COVID-19 2021-01-06 Completed Religion MRNA VACCINATION 00:00:00 Hospital PFIZER COVID-19 2021-01-06 Completed Religion MRNA VACCINATION 00:00:00 Hospital PFIZER COVID-19 2021-01-06 Completed Religion MRNA VACCINATION 00:00:00 Hospital PFIZER COVID-19 2021-01-06 Completed Religion MRNA VACCINATION 00:00:00 Hospital PFIZER COVID-19 2021-01-06 Completed Religion MRNA VACCINATION 00:00:00 Hospital PFIZER COVID-19 2021-01-06 Completed Religion MRNA VACCINATION 00:00:00 [facility] SARS-COV-2 COVID-19 2021-01-06 Completed Unive rsity of PFIZER VACCINE 00:00:00 [facility] SARS-COV-2 COVID-19 2021-01-06 Completed Unive rsity of PFIZER VACCINE 00:00:00 [facility] SARS-COV-2 COVID-19 2021-01-06 Completed Unive rsity of PFIZER VACCINE 00:00:00 [facility] SARS-COV-2 COVID-19 2021-01-06 Completed Unive rsity of PFIZER VACCINE 00:00:00 [facility] SARS-COV-2 COVID-19 2021-01-06 Completed Unive rsity of PFIZER VACCINE 00:00:00 [facility] SARS-COV-2 COVID-19 2020-11-03 Completed Unive rsity of [...] 2019-12-05 Completed University o f Polysaccharide, 00:00:00 [place] [facility] PPSV23 (PNEUMOVAX) Branch Pneumococcal 2019-12-05 Completed University o f Polysaccharide, 00:00:00 [place] [facility] PPSV23 (PNEUMOVAX) Branch Pneumococcal 2019-12-05 Completed University o f Polysaccharide, 00:00:00 [place] [facility] PPSV23 (PNEUMOVAX) Branch Pneumococcal 2019-12-05 Completed University o f Polysaccharide, 00:00:00 [place] [facility] PPSV23 (PNEUMOVAX) Branch Pneumococcal 2019-12-05 Completed University o f Polysaccharide, 00:00:00 [place] [facility] PPSV23 (PNEUMOVAX) Branch TDAP 2019-08-19 Completed University of 00:00:00 [facility] TDAP 2019-08-19 Completed University of 00:00:00 [facility] TDAP 2019-08-19 Completed University of 00:00:00 [facility] TDAP 2019-08-19 Completed University of 00:00:00 [facility] TDAP 2019-08-19 Completed University of 00:00:00 [facility] Flu Trivalent 2019-04-28 Completed University of 00:00:00 [facility] Influenza Virus 2019-04-28 Completed Universit y of Vaccine Quad IM 3+ 00:00:00 [facility] Flu Trivalent 2019-04-28 Completed University of 00:00:00 [facility] Influenza Virus 2019-04-28 Completed Universit y of Vaccine Quad IM 3+ 00:00:00 [facility] Flu Trivalent 2019-04-28 Completed University of 00:00:00 [facility] Influenza Virus 2019-04-28 Completed Universit y of Vaccine Quad IM 3+ 00:00:00 [facility] Flu Trivalent 2019-04-28 Completed University of 00:00:00 [facility] Influenza Virus 2019-04-28 Completed Universit y of Vaccine Quad IM 3+ 00:00:00 [facility] Flu Trivalent 2019-04-28 Completed University of 00:00:00 [facility] Influenza Virus 2019-04-28 Completed Universit y of Vaccine Quad IM 3+ 00:00:00 [facility] Flu Trivalent 2018-03-18 Completed University of 00:00:00 [facility] Flu Trivalent 2018-03-18 Completed University of 00:00:00 [facility] Flu Trivalent 2018-03-18 Completed University of 00:00:00 [facility] Flu Trivalent 2018-03-18 Completed University of 00:00:00 [facility] Flu Trivalent 2018-03-18 Completed University of 00:00:00 [facility] Flu Split Virus, 2017-04-26 Completed Universi ty of PSA 00:00:00 [facility] Flu Split Virus, 2017-04-26 Completed Universi ty of PSA 00:00:00 [facility] Flu Split Virus, 2017-04-26 Completed Universi ty of PSA 00:00:00 [facility] Flu Split Virus, 2017-04-26 Completed Universi ty of PSA 00:00:00 [facility] Flu Split Virus, 2017-04-26 Completed Universi ty of PSA 00:00:00 [facility] Flu Split Virus, 2016-05-01 Completed Universi ty of PSA 00:00:00 [facility] Flu Split Virus, 2016-05-01 Completed Universi ty of PSA 00:00:00 [facility] Flu Split Virus, 2016-05-01 Completed Universi ty of PSA 00:00:00 [facility] Flu Split Virus, 2016-05-01 Completed Universi ty of PSA 00:00:00 [facility] Flu Split Virus, 2016-05-01 Completed Universi ty of PSA 00:00:00 [facility] Flu Split Virus, 2015-04-29 Completed Universi ty of PSA 00:00:00 [facility] Flu Split Virus, 2015-04-29 Completed Universi ty of PSA 00:00:00 [facility] Flu Split Virus, 2015-04-29 Completed Universi ty of PSA 00:00:00 [facility] Flu Split Virus, 2015-04-29 Completed Universi ty of PSA 00:00:00 [facility] Flu Split Virus, 2015-04-29 Completed Universi ty of PSA 00:00:00 [facility] Pneumococcal 2012-05-03 Completed University o f Polysaccharide, 00:00:00 [place] [facility] PPSV23 (PNEUMOVAX) Branch Pneumococcal 2012-05-03 Completed University o f Polysaccharide, 00:00:00 [place] [facility] PPSV23 (PNEUMOVAX) Branch Pneumococcal 2012-05-03 Completed University o f Polysaccharide, 00:00:00 [place] [facility] PPSV23 (PNEUMOVAX) Branch Pneumococcal 2012-05-03 Completed University o f Polysaccharide, 00:00:00 [place] [facility] PPSV23 (PNEUMOVAX) Branch Pneumococcal 2012-05-03 Completed University o f Polysaccharide, 00:00:00 [place] [facility] PPSV23 (PNEUMOVAX) Branch TDAP 2009-09-06 Completed University of 00:00:00 [facility] TDAP 2009-09-06 Completed University of 00:00:00 [facility] TDAP 2009-09-06 Completed University of 00:00:00 [facility] TDAP 2009-09-06 Completed University of 00:00:00 [facility] TDAP 2009-09-06 Completed University of 00:00:00 [facility] Pneumococcal 2008-07-09 Completed University o f Polysaccharide, 00:00:00 [place] [facility] PPSV23 (PNEUMOVAX) Branch Pneumococcal 2008-07-09 Completed University o f Polysaccharide, 00:00:00 [place] [facility] PPSV23 (PNEUMOVAX) Branch Pneumococcal 2008-07-09 Completed University o f Polysaccharide, 00:00:00 [place] [facility] PPSV23 (PNEUMOVAX) Branch Pneumococcal 2008-07-09 Completed University o f Polysaccharide, 00:00:00 [place] [facility] PPSV23 (PNEUMOVAX) Branch Pneumococcal 2008-07-09 Completed University o f Polysaccharide, 00:00:00 [place] [facility] PPSV23 (PNEUMOVAX) Branch SARS-COV-2 COVID-19 Unknown Completed Unive rsity of VACCINE, BIVALENT [place] [facility] 0.2ML, PFIZER, Branch 6MO-4YRS, IM SARS-COV-2 COVID-19 Unknown Completed Unive rsity of VACCINE, BIVALENT [place] [facility] 0.2ML, PFIZER, Branch 6MO-4YRS, IM SARS-COV-2 COVID-19 Unknown Completed Unive rsity of PFIZER VACCINE [facility] SARS-COV-2 COVID-19 Unknown Completed Unive rsity of PFIZER VACCINE [facility] SARS-COV-2 COVID-19 Unknown Completed Unive rsity of PFIZER VACCINE [facility] Pneumococcal Unknown Completed [place] o f Polysaccharide, [place] [facility] PPSV23 (PNEUMOVAX) Branch Pneumococcal Unknown Completed [place] [facility] Polysaccharide, [place] [facility] PPSV23 (PNEUMOVAX) Branch Pneumococcal Unknown Completed [place] o [place] Polysaccharide, [place] [facility] PPSV23 (PNEUMOVAX) Branch Flu Trivalent Unknown Completed [facility] Flu Trivalent Unknown Completed [facility] Influenza Virus Unknown Completed Universit y of Vaccine Quad IM 3+ [facility] Flu Split Virus, Unknown Completed Universi ty of [facility] Flu Split Virus, Unknown Completed Universi ty of [facility] Flu Split Virus, Unknown Completed Universi ty of [facility] Influenza Virus Unknown Completed Universit y of Vaccine [facility] TDAP Unknown Completed [facility] TDAP Unknown Completed [facility] PFIZER COVID-19 Unknown Completed [facility]ACC[facility]ATION [facility] PFIZER COVID-19 Unknown Completed [facility] VACCINATION [facility] PFIZER COVID-19 Unknown Completed [facility]RNA VACCINATION Hospital Vital Signs Vital Name Observation Time Observation Value Comments Source WEIGHT 2023-04-09 12:51:00 76.8 kg WEIGHT 2023-04-09 08:45:00 80.3 kg WEIGHT 2023-04-06 08:00:00 80.3 kg WEIGHT 2023-04-05 19:00:00 81.8 kg WEIGHT 2023-04-05 15:00:00 83.3 kg WEIGHT 2023-04-05 06:07:00 79.153 kg WEIGHT 2023-04-03 04:16:00 80.06 kg WEIGHT 2023-04-02 04:26:00 77.973 kg WEIGHT 2023-04-01 05:16:00 76.703 kg WEIGHT 2023-03-29 04:45:00 72.5 kg WEIGHT 2023-03-28 15:15:00 72.4 kg WEIGHT 2023-03-28 06:00:00 73.7 kg WEIGHT 2023-03-27 05:00:00 70 kg WEIGHT 2023-03-25 06:00:00 73.8 kg WEIGHT 2023-03-24 05:00:00 70.8 kg WEIGHT 2023-03-23 06:00:00 67.2 kg WEIGHT 2023-03-22 19:43:00 67.3 kg WEIGHT 2023-03-22 15:30:00 70.3 kg WEIGHT 2023-03-14 11:35:00 70.3 kg WEIGHT 2023-03-14 07:30:00 72.3 kg WEIGHT 2023-03-13 05:42:00 72.303 kg WEIGHT 2023-03-12 12:45:00 72.8 kg WEIGHT 2023-03-10 06:09:00 75.252 kg WEIGHT 2023-03-09 19:33:00 72 kg WEIGHT 2023-03-09 15:58:00 74.2 kg WEIGHT 2023-03-09 05:10:00 74.163 kg WEIGHT 2023-03-08 04:51:00 72.576 kg HEIGHT 2023-03-06 16:16:00 167.6 cm WEIGHT 2023-03-06 16:16:00 81.647 kg WEIGHT 2023-04-09 12:51:00 76.8 kg WEIGHT 2023-04-09 08:45:00 80.3 kg WEIGHT 2023-04-06 08:00:00 80.3 kg WEIGHT 2023-04-05 19:00:00 81.8 kg WEIGHT 2023-04-05 15:00:00 83.3 kg WEIGHT 2023-04-05 06:07:00 79.153 kg WEIGHT 2023-04-03 04:16:00 80.06 kg WEIGHT 2023-04-02 04:26:00 77.973 kg WEIGHT 2023-04-01 05:16:00 76.703 kg WEIGHT 2023-03-29 04:45:00 72.5 kg WEIGHT 2023-03-28 15:15:00 72.4 kg WEIGHT 2023-03-28 06:00:00 73.7 kg WEIGHT 2023-03-27 05:00:00 70 kg WEIGHT 2023-03-25 06:00:00 73.8 kg WEIGHT 2023-03-24 05:00:00 70.8 kg WEIGHT 2023-03-23 06:00:00 67.2 kg WEIGHT 2023-03-22 19:43:00 67.3 kg WEIGHT 2023-03-22 15:30:00 70.3 kg WEIGHT 2023-03-14 11:35:00 70.3 kg WEIGHT 2023-03-14 07:30:00 72.3 kg WEIGHT 2023-03-13 05:42:00 72.303 kg WEIGHT 2023-03-12 12:45:00 72.8 kg WEIGHT 2023-03-10 06:09:00 75.252 kg WEIGHT 2023-03-09 19:33:00 72 kg WEIGHT 2023-03-09 15:58:00 74.2 kg WEIGHT 2023-03-09 05:10:00 74.163 kg WEIGHT 2023-03-08 04:51:00 72.576 kg HEIGHT 2023-03-06 16:16:00 167.6 cm WEIGHT 2023-03-06 16:16:00 81.647 kg Systolic blood 2022-12-22 22:25:00 137 mm[Hg] Univer sity of pressure [facility] Diastolic blood 2022-12-22 22:25:00 73 mm[Hg] Unive rsity of pressure [facility] Heart rate 2022-12-22 22:25:00 103 /min [facility] Oxygen saturation in 2022-12-22 22:25:00 98 /min [facility] Arterial blood by [facility] Pulse oximetry Branch Respiratory rate 2022-12-22 21:00:00 13 /min [facility] ersity of [place] [facility] Body temperature 2022-12-22 17:00:00 36.11 Katharina Univ ersity of [place] [facility] Body weight 2022-12-22 17:00:00 76.5 kg Universi ty of [place] [facility] BMI 2022-12-22 17:00:00 27.22 kg/m2 [facility] [place] [facility] Body height 2022-12-15 03:29:00 167.6 cm [facility] [place] [facility] Body temperature 2022-12-21 20:00:00 36.33 [place] Univ ersity of [place] [facility] Systolic blood 2022-12-21 17:00:00 130 mm[Hg] Univer sity of pressure [facility] Diastolic blood 2022-12-21 17:00:00 71 mm[Hg] Unive rsity of pressure [facility] Heart rate 2022-12-21 17:00:00 85 /min Universi ty of [place] [facility] Respiratory rate 2022-12-21 17:00:00 12 /min Univ ersity of [place] [facility] Oxygen saturation in 2022-12-21 17:00:00 100 /min University of Arterial blood by [place] [employer] Pulse oximetry Branch Body weight 2022-12-21 11:04:00 80.468 kg [facility]i ty [facility] [place] [facility] BMI 2022-12-21 11:04:00 27.22 kg/m2 [facility] [place] [facility] Body height 2022-12-15 03:29:00 167.6 cm [facility]i [facility] [place] [facility] Systolic blood 2022-11-07 20:23:00 130 mm[Hg] Univer sity of pressure [facility] Diastolic blood 2022-11-07 20:23:00 58 mm[Hg] Unive rsity of pressure [facility] Heart rate 2022-11-07 20:23:00 62 /min [facility]i ty [facility] [place] [facility] Body temperature 2022-11-07 20:23:00 36.11 [place] Univ ersity of [place] [facility] Respiratory rate 2022-11-07 20:23:00 17 /min Univ ersity of [place] [facility] Oxygen saturation in 2022-11-07 20:23:00 100 /min University of Arterial blood by [employer] Pulse oximetry Branch Body weight 2022-11-06 17:09:00 74 kg [facility]i ty of [place] [facility] BMI 2022-11-06 17:09:00 26.33 kg/m2 [facility] Body height 2022-11-04 22:57:00 167.6 cm [facility] height 2022-08-15 10:20:00 66.0 [in_i] Common [facility] weight 2022-08-15 10:20:00 224.4 [lb_av] Common [facility] temperature 2022-08-15 10:20:00 97.0 [degF] Common [facility] bmi 2022-08-15 10:20:00 36.22 kg/m2 Common [facility] oximetry 2022-08-15 10:20:00 96 % [facility] respiratory rate 2022-08-15 10:20:00 17 /min Comm on [facility] blood pressure 2022-08-15 10:20:00 131 mm[Hg] Common [facility] - systolic [facility] blood pressure 2022-08-15 10:20:00 72 mm[Hg] [facility] height 2022-02-27 11:20:00 66.0 [in_i] Common [facility] weight 2022-02-27 11:20:00 236.6 [lb_av] [facility] temperature 2022-02-27 11:20:00 97.2 [degF] Common S pirit [facility] bmi 2022-02-27 11:20:00 38.18 kg/m2 Common [facility] oximetry 2022-02-27 11:20:00 94 % Common [facility] respiratory rate 2022-02-27 11:20:00 16 /min Comm on [facility] blood pressure 2022-02-27 11:20:00 138 mm[Hg] Common [facility] - systolic [facility] blood pressure 2022-02-27 11:20:00 76 mm[Hg] [facility] - diastolic [facility] height 2022-02-27 11:00:00 66.0 [in_i] [facility] weight 2022-02-27 11:00:00 236.6 [lb_av] [facility] temperature 2022-02-27 11:00:00 97.2 [degF] [facility] bmi 2022-02-27 11:00:00 38.18 kg/m2 [facility] oximetry 2022-02-27 11:00:00 93 % [facility] respiratory rate 2022-02-27 11:00:00 16 /min Comm on [facility] blood pressure 2022-02-27 11:00:00 138 mm[Hg] Common [facility] systolic [facility] blood pressure 2022-02-27 11:00:00 76 mm[Hg] [facility] diastolic [facility] Systolic blood 2020-10-14 14:10:00 120 mm[Hg] Univer sity of [facility] Diastolic blood 2020-10-14 14:10:00 65 mm[Hg] Unive rsity [facility] Heart rate 2020-10-14 14:10:00 81 /min [facility] Body temperature 2020-10-14 14:10:00 36.06 Katharina [facility] rate 2020-10-14 14:10:00 13 /min [facility] Oxygen saturation in 2020-10-14 14:10:00 99 /min [facility] Arterial blood by [facility] Pulse oximetry Branch Body height 2020-10-01 18:42:00 167.6 cm [facility] Body weight 2020-10-01 18:42:00 108.4 kg [facility] BMI 2020-10-01 18:42:00 38.59 kg/m2 [facility] Systolic blood 2020-10-14 14:10:00 120 mm[Hg] Univer sity of [facility] Diastolic blood 2020-10-14 14:10:00 65 mm[Hg] Unive rsity of pressure [facility] Heart rate 2020-10-14 14:10:00 81 /min Universi ty of [facility] Body temperature 2020-10-14 14:10:00 36.06 Katharina Univ ersity of [facility] Respiratory rate 2020-10-14 14:10:00 13 /min Univ ersity of [facility] Oxygen saturation in 2020-10-14 14:10:00 99 /min University of Arterial blood by [facility] Pulse oximetry Branch Body height 2020-10-01 18:42:00 167.6 cm [facility] Body weight 2020-10-01 18:42:00 108.4 kg [facility] BMI 2020-10-01 18:42:00 38.59 kg/m2 [facility] Systolic blood 2020-04-01 13:55:00 113 mm[Hg] [facility] [place] [facility] Diastolic blood 2020-04-01 13:55:00 56 mm[Hg] [facility] Heart rate 2020-04-01 13:55:00 63 /min [facility] [place] [facility] Body temperature 2020-04-01 13:55:00 36.11 Katharina [facility] [place] [facility] Oxygen saturation in 2020-04-01 13:50:00 100 /min [facility] of Arterial blood by [facility] Pulse oximetry Branch Respiratory rate 2020-04-01 13:45:00 18 /min [facility] Body height 2020-03-30 17:15:00 167.6 cm [facility] Body weight 2020-03-30 17:15:00 108.41 kg [facility] BMI 2020-03-30 17:15:00 38.58 kg/m2 [facility] Systolic blood 2020-04-01 13:55:00 113 mm[Hg] [facility] [place] [facility] Diastolic blood 2020-04-01 13:55:00 56 mm[Hg] [facility] Heart rate 2020-04-01 13:55:00 63 /min [facility] Body temperature 2020-04-01 13:55:00 36.11 Katharina [facility] Oxygen saturation in 2020-04-01 13:50:00 100 /min [facility] Arterial blood by [facility] Pulse oximetry [place] Respiratory rate 2020-04-01 13:45:00 18 /min [facility] Body height 2020-03-30 17:15:00 167.6 cm [facility] Body weight 2020-03-30 17:15:00 108.41 kg [facility] BMI 2020-03-30 17:15:00 38.58 kg/m2 [facility] Respiratory rate 2020-04-01 13:32:00 18 /min [facility] Respiratory rate 2020-04-01 13:32:00 18 /min [facility] Heart rate 2022-04-26 17:30:00 76 /min [facility] Oxygen saturation in 2022-04-26 17:30:00 93 /min [facility] Arterial blood by Pulse oximetry Systolic blood 2022-04-26 17:20:00 139 mm[Hg] [facility] pressure Diastolic blood 2022-04-26 17:20:00 67 mm[Hg] [facility] pressure Respiratory rate 2022-04-26 17:20:00 16 /min [facility] Body temperature 2022-04-26 17:00:00 36.44 Katharina [facility] Body height 2022-04-24 17:06:[address] [facility] Body weight 2022-04-24 17:06:[address] [facility] BMI 2022-04-24 17:06:00 39.22 kg/m2 [facility] Systolic (mm Hg) 2021-02-23 20:05:00 Jairobecki zhu [place] Diastolic (mm Hg) 2021-02-23 20:05:00 [facility] orial [place] Heart Rate 2021-02-23 20:05:00 [facility] [place] Respitory Rate 2021-02-23 20:05:00 Sriram easley [place] Height 2021-02-23 20:05:00 162.56 [facility] 2021-02-23 20:05:00 [facility] BMI Calculated 2021-02-23 20:05:00 Sriram Larkin Procedures Procedure Date / Time Performing Source Performed Clinician POCT GLUCOSE (AUTOMATED) 2022-12-22 Bulmaroaudra [facility] 16:44:00 Medical Branch POCT GLUCOSE (AUTOMATED) 2022-12-22 BulmaroDuke zhu [facility] 16:44:00 Medical Branch POCT GLUCOSE (AUTOMATED) 2022-12-22 BulmaroDuke zhu [facility] 11:06:00 Medical Branch POCT GLUCOSE (AUTOMATED) 2022-12-22 Duke Harden [facility] 11:06:00 Medical Branch BASIC METABOLIC PANEL (NA, K, 2022-12-22 [facility] [place] CL, CO2, GLUCOSE, BUN, 10:26:00 Medical B ranch CREATININE, CA) CBC WITH DIFF 2022-12-22 [facility] 10:26:00 Medical Branch BASIC METABOLIC PANEL (NA, K, 2022-12-22 Duke Harden [facility] CL, CO2, GLUCOSE, BUN, 10:26:00 Medical B ranch CREATININE, CA) CBC WITH DIFF 2022-12-[address] [facility] xa 10:26:00 Medical Branch POCT GLUCOSE (AUTOMATED) 2022-12-22 Fina [facility] 05:04:00 Medical Branch POCT GLUCOSE (AUTOMATED) 2022-12-22 [facility] 05:04[facility] Medical Branch POCT GLUCOSE (AUTOMATED) 2022-12-21 [facility] Harden [facility] 23:16:00 Medical Branch POCT GLUCOSE (AUTOMATED) 2022-12-21 [facility] 23:16[facility]00 Medical Branch XR CHEST 1 VW [facility]22[facility]12-[facility] 22:14[facility]57 [facility] Branch XR CHEST 1 VW 2022[facility]12-[facility] 22:14:57 Medical Branch FL TIME OR (NON-REPORTABLE) [facility] Medical Branch FL TIME OR (NON-REPORTABLE) 2022-12-21 Lowry, [facility] 21:41:14 Medical Branch PERMACATH PLACEMENT 2022-12-21 [facility] 20:31:00 Medical Branch PERMACATH PLACEMENT 2022-12-21 Lowry, [facility] 20:31:00 Medical Branch POCT GLUCOSE (AUTOMATED) 2022-12-21 [facility] 17:16:00 Medical Branch POCT GLUCOSE (AUTOMATED) 2022-12-21 [facility] 17:16:00 Medical Branch POCT GLUCOSE (AUTOMATED) 2022-12-21 [facility] 11:08:00 Medical Branch POCT GLUCOSE (AUTOMATED) 2022-12-21 [facility] 11:08:00 Medical Branch POCT GLUCOSE (AUTOMATED) 2022-12-21 [facility] 05:06:00 Medical Branch POCT GLUCOSE (AUTOMATED) 2022-12-21 [facility] 05:06:00 Medical Branch POCT GLUCOSE (AUTOMATED) 2022-12-20 [facility] 23:00:00 Medical Branch POCT GLUCOSE (AUTOMATED) 2022-12-20 [facility] 23:00:00 Medical Branch POCT GLUCOSE (AUTOMATED) 2022-12-20 [facility] 16:50:00 Medical Branch POCT GLUCOSE (AUTOMATED) 2022-12-20 [facility] 16:50:00 Medical Branch PHOSPHORUS 2022-12-20 [facility] 09:12:00 Medical Branch MAGNESIUM 2022-12-20 [facility] [place] 09:12:00 Medical Branch HEPATIC FUNCTION PANEL 2022-12-20 [facility] ([id number]) (ALB,T.PRO,BILI 09:12:00 Medical Branch T,BU/BC,ALT,AST,ALK PHOS) BASIC METABOLIC PANEL (NA, K, 2022-12-20 [facility] Harden [facility] CL, CO2, GLUCOSE, BUN, 09:12:00 Medical B ranch CREATININE, CA) CBC WITH DIFF 2022-12-20 [facility] 09:12:00 Medical Branch PHOSPHORUS 2022-12-20 [facility] xa 09:12:00 Medical Branch MAGNESIUM 2022-12-20 [facility] 09:12:00 Medical Branch HEPATIC FUNCTION PANEL 2022-12-20 [facility] ([id number][facility] (ALB,T.PRO,BILI 09:12:00 Medical Branch T,BU/BC,ALT,AST,ALK PHOS) BASIC METABOLIC PANEL (NA, K, 2022-12-20 Bulmaro [facility], CO2, GLUCOSE, BUN, 09:12:00 Medical B ranch CREATININE, CA) CBC WITH DIFF 2022-12-20 [facility] 09:12:00 [facility] POCT GLUCOSE (AUTOMATED) 2022-12-20 Liya [facility] 09:10:00 Medical Branch POCT GLUCOSE (AUTOMATED) 2022-12-20 Liya [facility] 09:10:00 Medical Branch POCT GLUCOSE (AUTOMATED) 2022-12-20 iLya [facility] 05:17:00 Medical Branch POCT GLUCOSE (AUTOMATED) 2022-12-20 Liya [facility] 05:17:00 Medical Branch POCT GLUCOSE (AUTOMATED) 2022-12-19 Liya [facility] 23:10:00 Medical Branch POCT GLUCOSE (AUTOMATED) 2022-12-19 [facility] 23:10:00 Medical Branch POCT GLUCOSE (AUTOMATED) 2022-12-19 Liya [facility] 16:53:00 Medical Branch POCT GLUCOSE (AUTOMATED) 2022-12-19 Liya [facility] 16:53:00 Medical Branch POCT GLUCOSE (AUTOMATED) 2022-12-19 Liya [facility] 11:08:00 Medical Branch POCT GLUCOSE (AUTOMATED) 2022-12-19 Liya [facility] 11:08:00 Medical Branch PHOSPHORUS 2022-12-19 Rajni, [facility] [place] 09:38:00 Medical Branch MAGNESIUM 2022-12-19 [place] [facility] [place] 09:38:00 Medical Branch BASIC METABOLIC PANEL (NA, K, 2022-12-19 [place] [facility] CL, CO2, GLUCOSE, BUN, 09:38:00 Medical B ran CREATININE, CA) CBC WITH DIFF 2022-12-19 [place] [facility] xas 09:38:00 Medical Branch PHOSPHORUS 2022-12-19 [place] [facility] xas 09:38:00 Medical Branch MAGNESIUM 2022-12-19 Rajni [facility] xas 09:38:00 Medical Branch BASIC METABOLIC PANEL (NA, K, 2022-12-19 [place] [facility] CL, CO2, GLUCOSE, BUN, 09:38:00 Medical B ran CREATININE, CA) CBC WITH DIFF 2022-12-19 [place] [facility] xas 09:38:00 Medical Branch POCT GLUCOSE (AUTOMATED) 2022-12-19 [facility] 05:05:00 Medical Branch POCT GLUCOSE (AUTOMATED) 2022-12-19 [facility] 05:05:00 Medical Branch XR NECK SOFT TISSUE 2022-12-19 [facility] 03:07:00 Medical Branch XR NECK SOFT TISSUE 2022-12-19 [facility] 03:07:00 Medical Branch POCT GLUCOSE (AUTOMATED) 2022-12-18 [facility] 22:57:00 Medical Branch POCT GLUCOSE (AUTOMATED) 2022-12-18 [facility] 22:57:00 Medical Branch POCT GLUCOSE (AUTOMATED) 2022-12-18 [facility] 16:32:00 Medical Branch POCT GLUCOSE (AUTOMATED) 2022-12-18 [facility] 16:32:00 Medical Branch XR CHEST 1 VW 2022-12-18 [facility] 15:16:48 [place] Medical Branch XR CHEST 1 VW 2022-12-18 Aaron, [facility] xa 15:16:48 [facility]OMATED) 2022-12-18 Liya [facility] 10:48:00 Medical Branch POCT GLUCOSE (AUTOMATED) 2022-12-18 Liya [facility] 10:48:00 Medical Branch BLOOD CULTURE SCREEN 2022-12-18 Rajni [facility] 10:13:00 Medical Branch BLOOD CULTURE SCREEN 2022-12-18 Rajni [facility] 10:13:00 Medical Branch BLOOD CULTURE SCREEN 2022-12-18 Rajni [facility] 10:12:00 [facility] Branch PHOSPHORUS 2022-12-18 Rajni [facility] xa 10:12:00 [facility] Branch MAGNESIUM 2022-12-18 Rajni [facility] 10:12:00 Medical Branch BASIC METABOLIC PANEL (NA, K, 2022-12-18 [place] [facility] CL, CO2, GLUCOSE, BUN, 10:12:00 Medical B ran CREATININE, CA) CBC WITH DIFF 2022-12-18 Rajni [facility] xa 10:12:00 Medical [place] BLOOD CULTURE SCREEN 2022-12-18 Rajni [facility] 10:12:00 Medical Branch PHOSPHORUS 2022-12-18 Rajni [facility] xa 10:12:00 [facility] Branch MAGNESIUM 2022-12-18 Rajni [facility] xa 10:12:00 Medical Branch BASIC METABOLIC PANEL (NA, K, 2022-12-18 [place] [facility] CL, CO2, GLUCOSE, BUN, 10:12:00 Medical B ran CREATININE, CA) CBC WITH DIFF 2022-12-18 Rajni [facility] 10:12:00 Medical Branch POCT GLUCOSE (AUTOMATED) 2022-12-18 Liya [facility] 05:42:00 Medical Branch POCT GLUCOSE (AUTOMATED) 2022-12-18 [facility] 05:42:00 Medical Branch POCT GLUCOSE (AUTOMATED) 2022-12-17 [facility] 23:26:00 Medical Branch POCT GLUCOSE (AUTOMATED) 2022-12-17 Liya [facility] 23:26:00 Medical Branch POCT GLUCOSE (AUTOMATED) 2022-12-17 [facility] 16:58:00 Medical Branch POCT GLUCOSE (AUTOMATED) 2022-12-17 Liya, [facility] 16:58:00 Medical Branch POCT GLUCOSE (AUTOMATED) 2022-12-17 Liya, [facility] 10:39:00 Medical Branch POCT GLUCOSE (AUTOMATED) 2022-12-17 Liya, [facility] 10:39:00 Medical Branch TROPONIN I 2022-12-17 [facility] 08:37:00 Medical Branch BASIC METABOLIC PANEL (NA, K, 2022-12-17 Bulmaro [facility] [place] CL, CO2, GLUCOSE, BUN, 08:37:00 Medical B ranch CREATININE, CA) CBC WITH DIFF 2022-12-17 [facility] xas 08:37:00 Medical Branch TROPONIN I 2022-12-17 [facility] xas 08:37:00 Medical Branch BASIC METABOLIC PANEL (NA, K, 2022-12-17 Bulmaro [facility] [place] CL, CO2, GLUCOSE, BUN, 08:37:00 Medical B ranch CREATININE, CA) CBC WITH DIFF 2022-12-17 [facility] xas 08:37:00 Medical Branch POCT GLUCOSE (AUTOMATED) 2022-12-17 Liya [facility] 04:20:00 Medical Branch POCT GLUCOSE (AUTOMATED) 2022-12-17 Liya [facility] 04:20:00 Medical Branch POCT GLUCOSE (AUTOMATED) 2022-12-16 Liya [facility] 23:24:00 Medical Branch POCT GLUCOSE (AUTOMATED) 2022-12-16 [facility] 23:24:00 Medical Branch POCT GLUCOSE (AUTOMATED) 2022-12-16 Liya, [facility] 16:42:00 Medical Branch POCT GLUCOSE (AUTOMATED) 2022-12-16 Liya, Tavo [facility] 16:42:00 Medical Branch CATHETER TIP CULTURE 2022-12-16 Lowry, [facility] 16:13:00 Medical Branch CATHETER TIP CULTURE 2022-12-16 Lowry, [facility] 16:13:00 Medical Branch POCT GLUCOSE (AUTOMATED) 2022-12-16 [facility] 11:14:00 Medical Branch POCT GLUCOSE (AUTOMATED) 2022-12-16 Liya [facility] 11:14:00 Medical Branch BLOOD CULTURE SCREEN 2022-12-16 [facility] 10:[facility]:00 [facility] Branch BLOOD CULTURE SCREEN 2022-12-16 [facility] 10:00:00 [facility] BLOOD CULTURE SCREEN 2022-12-16 [facility] 09:49:00 Medical Branch TROPONIN I 2022-12-16 [facility] 09:49:00 Medical Branch HEPATIC FUNCTION PANEL 2022-12-16 [facility] ([id number]) (ALB,T.PRO,BILI 09:49:00 Medical Branch T,BU/BC,ALT,AST,ALK PHOS) BASIC METABOLIC PANEL (NA, K, 2022-12-16 [facility] CL, CO2, GLUCOSE, BUN, 09:49:00 Medical ranch CREATININE, CA) VANCOMYCIN RANDOM LEVEL 2022-12-16 Kari Brunson [facility] 09:49:00 P Medical Branch CBC WITH DIFF 2022-12-16 [facility] xas 09:49:00 Medical Branch BLOOD CULTURE SCREEN 2022-12-16 [facility] 09:49:00 Medical Branch TROPONIN I 2022-12-16 [facility] 09:49:00 Medical Branch HEPATIC FUNCTION PANEL 2022-12-16 [facility] ([id number]) (ALB,T.PRO,BILI 09:49:00 Medical Branch T,BU/BC,ALT,AST,ALK PHOS) BASIC METABOLIC PANEL (NA, K, 2022-12-16 [facility] CL, CO2, GLUCOSE, BUN, 09:49:00 Medical B ranch CREATININE, CA) VANCOMYCIN RANDOM LEVEL 2022-12-16 Nannette Karinadira Jimenez [facility] 09:49:00 P Medical Branch CBC WITH DIFF 2022-12-16 Fina [facility] xa 09:49:00 Medical Branch POCT GLUCOSE (AUTOMATED) 2022-12-16 [facility] 05:29:00 Medical Branch POCT GLUCOSE (AUTOMATED) 2022-12-16 [facility] 05:29:00 Medical Branch POCT GLUCOSE (AUTOMATED) 2022-12-15 [facility] 23:01:00 Medical Branch POCT GLUCOSE (AUTOMATED) 2022-12-15 [facility] 23:01:00 Medical Branch TROPONIN I 2022-12-15 [facility] xa 22:25:00 Medical Branch TRANSFUSE PACKED RBC 2022-12-15 Elizabet Flores [facility] 22:25:00 Medical Branch TROPONIN I 2022-12-15 [facility] xa 22:25:00 Medical Branch TRANSFUSE PACKED RBC 2022-12-15 Elizabet Flores [facility] 22:25:00 [facility] Branch PREPARE PACKED RBC 2022-12-15 Bulmaro [facility] 22:05:53 Medical Branch PREPARE PACKED RBC 2022-12-15 Bulmaro [facility] 22:05:53 [facility] Branch HEPATITIS B SURFACE ANTIBODY 2022-12-15 Taran Floresaf A U [facility] 21:30:00 Medical Branch HEPATITIS B SURFACE ANTIGEN 2022-12-15 [facility] 21:30:00 [facility] HEPATITIS B SURFACE ANTIBODY 2022-12-15 Taran Floresaf Malena U [facility] 21:30:00 [facility] HEPATITIS B SURFACE ANTIGEN 2022-12-15 Elizabet Flores [facility] 21:30:00 Medical Branch ABORH CONFIRMATION (LAB ONLY) 2022-12-15 [facility] 17:58:00 Medical Branch ABORH CONFIRMATION (LAB ONLY) 2022-12-15 [facility] 17:58:00 Medical Branch POCT GLUCOSE (AUTOMATED) 2022-12-15 [facility] 17:57:00 Medical Branch POCT GLUCOSE (AUTOMATED) 2022-12-15 [facility] 17:57:00 Medical Branch TROPONIN I 2022-12-15 [facility] xas 16:29:00 Medical Branch HB ABO GROUPING 2022-12-15 [facility] 16:29:00 Medical Branch TROPONIN I 2022-12-15 [facility] xas 16:29:00 Medical Branch HB ABO GROUPING 2022-12-15 [facility] 16:29:00 Medical Branch XR ABDOMEN 1 VW 2022-12-15 [facility], [facility] xas 13:17:17 Medical Branch XR ABDOMEN 1 VW 2022-12-15 [facility], [facility] xas 13:17:17 Medical Branch TRANSTHORACIC ECHO (TTE) 2022-12-15 [facility], [facility] LIMITED W/ DOPPLER AND COLOR 12:57:00 [facility] Branch TRANSTHORACIC ECHO (TTE) 2022-12-15 [facility], [facility] LIMITED W/ DOPPLER AND COLOR 12:57:00 Med ical Branch PHOSPHORUS 2022-12-15 [facility], [facility] xas 10:53:00 Medical Branch LIPASE 2022-12-15 [facility], [facility] xas 10:53:00 Medical Branch MAGNESIUM 2022-12-15 [facility], [facility]as 10:53:00 Medical Branch TROPONIN I 2022-12-15 [facility], [facility] xas 10:53:00 Medical Branch BASIC METABOLIC PANEL (NA, K, 2022-12-15 [facility]ya[facility], CO2, GLUCOSE, BUN, 10:53:00 Medical B ranch CREATININE, CA) CBC WITH DIFF 2022-12-15 [facility], [facility] xas 10:53:00 Medical Branch N-TERMINAL PRO-BNP 2022-12-15 [facility] 10:53:00 Medical Branch PHOSPHORUS 2022-12-15 [facility] 10:53:00 Medical Branch LIPASE 2022-12-15 [place], [facility] xas 10:53:00 Medical Branch MAGNESIUM 2022-12-15 [place], [facility] xas 10:53:00 Medical Branch TROPONIN I 2022-12-15 [facility] x[facility] 10:53:00 Medical Branch BASIC METABOLIC PANEL (NA, K, 2022-12-15 [facility], CO2, GLUCOSE, BUN, 10:53:00 Medical B ranch CREATININE, CA) CBC WITH DIFF 2022-12-15 [facility], [facility] xas 10:53:00 Medical Branch N-TERMINAL PRO-BNP 2022-12-15 [facility] 10:53:00 Medical Branch POCT GLUCOSE (AUTOMATED) 2022-12-15 [facility] 10:43:00 Medical Branch POCT GLUCOSE (AUTOMATED) 2022-12-15 [facility], [facility] 10:43:00 Medical Branch COMP. METABOLIC PANEL ([id number]) 2022-12-15 Tavo Nick[facility] [place] 07:02:00 Medical Branch CBC WITH DIFF 2022-12-15 [facility], [facility] xas 07:02:00 Medical Branch LACTIC ACID WHOLE BLOOD 2022-12-15 [facility], [facility] 07:02:00 Medical Branch COMP. METABOLIC PANEL ([id number]) 2022-12-15 [facility] 07:02:00 Medical Branch CBC WITH DIFF 2022-12-15 [facility], [facility] xas 07:02:00 Medical Branch LACTIC ACID WHOLE BLOOD 2022-12-15 [facility], [facility] 07:02:00 Medical Branch TROPONIN I 2022-12-[address] [facility] xa 05:08:00 Medical Branch MRSA / MSSA SCREEN BY PCR, 2022-12-15 Liya [facility] 05:08:00 Medical Branch TROPONIN I 2022-12-[address] [facility] xas 05:08:00 Medical Branch MRSA / MSSA SCREEN BY PCR, 2022-12-15 Liya [facility] 05:08:00 Medical Branch EXTERNAL PROVIDER RECORDS 2022-12-15 Doctor Unassigned, [facility] 05:01:00 [place] [facility] EXTERNAL PROVIDER RECORDS 2022-12-15 Doctor Unassigned, [facility] 05:01:00 [place] [facility] POCT GLUCOSE (AUTOMATED) 2022-12-15 Liya [facility] 04:59:00 Medical Branch POCT GLUCOSE (AUTOMATED) 2022-12-15 Liya [facility] 04:59:00 Medical Branch XR FOOT 3+ VW RIGHT 2022-12-14 Sarahy Durán [facility] 23:40:41 Medical Branch XR FOOT 3+ VW RIGHT 2022-12-14 Sarahy Durán [facility] 23:40:41 Medical Branch NOTICE OF PRIVACY PRACTICES 2022-12-14 Doctor Unassigned, [facility] 23:30:56 [place] [facility] NOTICE OF PRIVACY PRACTICES 2022-12-14 Doctor Unassigned, [facility] 23:30:56 [place] [facility] CONSENT/REFUSAL FOR DIAGNOSIS 2022-12-14 Doctor Unassigned, [facility] 23:30:30 [place] [facility] CONSENT/REFUSAL FOR DIAGNOSIS 2022-12-14 Doctor Unassigned, [facility] 23:30:30 [place] [facility] ASSIGNMENT OF BENEFITS 2022-12-14 [facility] 23:30:08 [place] [facility] ASSIGNMENT OF BENEFITS 2022-12-14 [facility] 23:30:[address] [place] [facility] [address] ABDOMEN PELVIS WO CONTRAST 2022-12-14 Sarahy Durán [facility] 23:30:[address] ABDOMEN PELVIS WO CONTRAST 2022-12-14 Sarahy Durán [facility] 23:30:00 Medical Branch XR CHEST 1 VW 2022-12-14 David [facility] [place] 23:20:00 Medical Branch XR CHEST 1 VW 2022-12-14 Sarahy Durán [facility] 23:20:00 Medical Branch HB ECG ROUTINE & RHYTHM STRIP 2022-12-14 Romi DuránMountain [facility] 23:09:39 Medical Branch HB ECG ROUTINE & RHYTHM STRIP 2022-12-14 [facility] POCT GLUCOSE (AUTOMATED) 2022-12-14 Sarahy Durán [facility] 22:56:00 Medical Branch POCT GLUCOSE (AUTOMATED) 2022-12-14 Sarahy Durán [facility] 22:56:00 Medical Branch LACTIC ACID WHOLE BLOOD 2022-12-14 Sarahy Durán [facility] 22:50:00 Medical Branch LACTIC ACID WHOLE BLOOD 2022-12-14 Luis Armando [facility] 22:50:00 Medical Branch LIPASE 2022-12-14 Sarahy Durán [facility] 22:49:00 Medical Branch MAGNESIUM 2022-12-[address] [facility] 22:49:00 Medical Branch TROPONIN I 2022-12-14 Sarahy Durán [facility] 22:49:00 Medical Branch COMP. METABOLIC PANEL ([id number]) 2022-12-14 Sarahy Durán [facility] 22:49:00 Medical Branch CBC WITH DIFF 2022-12-14 Sarahy Durán [facility] 22:49:00 Medical Branch N-TERMINAL PRO-BNP 2022-12-14 Sarahy Durán [facility] 22:49:00 Medical Branch BLOOD CULTURE WORKUP 2022-12-14 Sarahy Durán [facility] 22:49:00 Medical Branch BLOOD CULTURE WORKUP 2022-12-14 Ibikunle, [facility] 22:49:00 Medical Branch GRAM POSITIVE BLOOD PATHOGENS 2022-12-14 Syd[facility] DNA PROBE-AEROBIC 22:49:00 Medical Branch BLOOD CULTURE SCREEN 2022-12-14 Elginvasquezmartine [facility] 22:49:00 Medical Branch LIPASE 2022-12-14 [facility] [place] [facility] MAGNESIUM 2022-12-[address] [facility] 22:49:00 Medical Branch TROPONIN I 2022-12-14 [facility] [place] 22:49:00 Medical Branch COMP. METABOLIC PANEL ([id number]) 2022-12-14 [facility]:49[facility]00 Medical Branch CBC WITH DIFF 2022-12-14 [facility] 22:49:00 Medical Branch N-TERMINAL PRO-BNP 2022-12-14 [facility] 22:49:00 Medical Branch BLOOD CULTURE WORKUP 2022-12-14 [facility] 22:49:00 Medical Branch BLOOD CULTURE WORKUP 2022-12-14 [facility] 22:49:00 Medical Branch GRAM POSITIVE BLOOD PATHOGENS 2022-12-[address] [facility] DNA PROBE-AEROBIC 22:49:00 Medical Branch BLOOD CULTURE SCREEN 2022-12-14 [facility] POCT GLUCOSE (AUTOMATED) 2022-11-07 [place] Urban [facility] 21:57:00 Medical Branch POCT GLUCOSE (AUTOMATED) 2022-11-07 [place] [facility] 16:44:00 Medical [place] POCT GLUCOSE (AUTOMATED) 2022-11-07 [place] [facility] 13:11:00 [facility] Branch BASIC METABOLIC PANEL (NA, K, 2022-11-07 Adonis Keenan [facility] CL, CO2, GLUCOSE, BUN, 08:55:00 Medical B ran CREATININE, CA) CBC WITH DIFF 2022-11-07 salvatore [facility] 08:55:00 Medical Branch POCT GLUCOSE (AUTOMATED) 2022-11-06 [place] [facility] 21:39:00 Medical Branch POCT GLUCOSE (AUTOMATED) 2022-11-06 [place] [facility] 16:26:00 Medical Branch TROPONIN I 2022-11-[address] [facility] [place] 14:09:00 Medical Branch HEPATITIS B SURFACE ANTIBODY 2022-11-06 [facility] 14:09:00 Medical Branch HEPATITIS B SURFACE ANTIGEN 2022-11-06 [facility] 14:09:00 Medical Branch POCT GLUCOSE (AUTOMATED) 2022-11-06 [place] [facility] 12:39:00 Medical Branch BASIC METABOLIC PANEL (NA, K, 2022-11-06 [facility], CO2, GLUCOSE, BUN, 08:56:00 [facility] CREATININE, CA) CBC WITH DIFF 2022-11-06 [facility] 08:56:00 [facility] N-TERMINAL PRO-BNP 2022-11-06 [facility] 08:56:00 Medical Branch EXTERNAL PROVIDER RECORDS 2022-11-06 Doctor Unassigned, [facility] 05:01:00 [facility] DISCLOSURE AND CONSENT, 2022-11-06 Doctor Unassigned, [facility] MEDICAL AND SURGICAL 05:01:00 [place] [facility] PROCEDURES POCT GLUCOSE (AUTOMATED) 2022-11-06 [place] [facility] 01:40:00 Medical Branch POCT GLUCOSE (AUTOMATED) 2022-11-05 [place] [facility] 22:02:00 Medical Branch POCT GLUCOSE (AUTOMATED) 2022-11-05 [place] [facility] 16:39:00 Medical Branch TRANSTHORACIC ECHO (TTE) 2022-11-05 Tavo Nickerson [facility] COMPLETE W/ CONTRAST 14:33:00 [facility] POCT GLUCOSE (AUTOMATED) 2022-11-05 [place] [facility] 12:53:00 Medical Branch PHOSPHORUS 2022-11-[address] [facility] 09:24:00 Medical Branch MAGNESIUM 2022-11-05 [facility] 09:24:00 [facility] Branch TROPONIN I 2022-11-05 [facility] 09:24:00 [facility] COMP. METABOLIC PANEL ([id number]) 2022-11-05 [facility] 09:24:00 [facility] LIPID PANEL ([id number])(TOTAL 2022-11-05 [facility] CHOLESTEROL, TRIGLYCERIDES, 09:24:00 [facility] HDL) CBC WITH DIFF 2022-11-05 [facility] 09:24:00 [facility] N-TERMINAL PRO-BNP 2022-11-05 [facility], [facility] 09:24:00 [facility] Branch TROPONIN I 2022-11-05 [facility] 02:39:00 [facility] BLOOD CULTURE SCREEN 2022-11-04 Katherin Persaud [facility] 21:48:00 [facility] RAPID INFLUENZA A/B 2022-11-04 Katherin Persaud [facility] 20:50:00 [facility] WOUND CULTURE 2022-11-04 Katherin Persaud [facility] 20:50:00 [facility] Branch COVID-19 (ID NOW RAPID 2022-11-04 Katherin Persaud [facility] TESTING) 20:50:00 [facility] LAB ONLY COVID INTERPRETATION 2022-11-04 Katherin Persaud [facility] 20:50:00 [facility] XR CHEST 1 VW 2022-11-04 Katherin Persaud [facility] ex 20:29:26 [facility] HB ECG ROUTINE & RHYTHM STRIP 2022-11-04 Katherin Persaud [facility] 19:39:09 [facility] PHOSPHORUS 2022-11-04 Katherin Persaud [facility] ex 19:31:00 [facility] Branch CREATINE KINASE 2022-11-04 Katherin Persaud [facility] ex 19:31:00 [facility] Branch MAGNESIUM 2022-11-04 Katherin Persaud [facility] 19:31:00 Medical Branch TROPONIN I 2022-11-04 Katherin Persaud [facility] ex 19:31:00 Medical Branch FREE T4 2022-11-04 [facility] [place] 19:31:00 Medical Branch THYROID STIMULATING HORMONE 2022-11-04 [facility] 19:31:00 Medical Branch COMP. METABOLIC PANEL ([id number]) 2022-11-04 Katherin Persaud [facility] 19:31:00 Medical Branch CBC WITH DIFF 2022-11-04 Katherin Persaud [facility] [place] 19:31:00 Medical Branch GLYCOSYLATED HEMOGLOBIN (A1C) 2022-11-04 [facility] 19:31:00 Medical Branch URINALYSIS 2022-11-04 Katherin Persaud [facility] ex 19:31:00 Medical Branch N-TERMINAL PRO-BNP 2022-11-04 Katherin Persaud [facility] 19:31:00 Medical Branch FREE T3 2022-11-04 [facility] [place] 19:31:00 Medical Branch LACTIC ACID WHOLE BLOOD 2022-11-04 Katherin Persaud [facility] 19:30:00 Medical Branch [id number] 2022-07-06 [facility] 00:00:00 [facility] [id number] 2022-07-04 [facility] 00:00:00 [facility] [id number] 2022-07-01 [facility] 00:00:00 [facility] [id number] 2022-06-29 [facility] 00:00:00 [facility] [id number] 2022-06-28 [facility] 00:00:00 [facility] [id number] 2022-06-27 [facility] 00:00:00 [facility] [id number] 2022-06-27 [facility] 00:00:00 [facility] [id number] 2022-06-27 [facility] 00:00:00 [facility] [id number] 2022-06-27 [facility] 00:00:00 [facility] [id number] 2022-06-26 [facility] 00:00:00 [facility] [id number] 2022-06-26 [facility] 00:00:00 [facility] [id number] 2022-06-26 [facility] 00:00:00 [facility] [id number] 2022-06-26 [facility] 00:00:00 [facility] [id number] 2022-06-26 [facility] 00:00:00 [facility] [id number] 2022-06-24 [facility] 00:00:00 [facility] [id number] 2022-06-23 [facility] 00:00:00 [facility] [id number] 2022-06-22 [facility] 00:00:00 [facility] POC GLUCOSE 2022-04-26 [facility] 16:04:00 E. AR AN ELECTIVE ENDOTRACHEAL 2022-04-26 Mariely De La Cruz [facility] AIR[facility] 15:12:00 LAPAROSCOPIC REMOVAL OR 2022-04-26 [facility] 14:56:00 E. DIALYSIS CATHETER ESTIMATED GFR 2022-04-26 Jose Becker [facility] pital 13:00:00 E. POC PANEL 2022-04-26 [facility] 13:00:00 E. POC GLUCOSE 2022-03-06 Jose hughes [facility] pital 16:00:00 E. SURGICAL PATHOLOGY REQUEST 2022-03-06 [facility] 15:28:00 E. POC GLUCOSE 2022-03-06 Jose Becker [facility] pital 15:23:00 E. ANESTHESIA INTUBATION 2022-03-06 TrentLuzmaria [facility] 12:57:00 CHOLECYSTECTOMY, LAPAROSCOPIC 2022-03-06 [facility] 12:44:00 E. INSERTION, CATHETER, 2022-03-06 [facility] DIALYSIS, PERITONEAL, 12:44:00 E. LAPAROSCOPIC ESTIMATED GFR 2022-03-06 Jose Becker [facility] pital 11:50:00 E. POC PANEL 2022-03-06 Jose Becker [facility] pital 11:50:00 E. BASIC METABOLIC PANEL 2022-03-06 [facility] 11:40:00 ESTIMATED GFR 2022-03-06 [facility] 11:40:00 CBC WITH PLATELET AND 2022-03-01 [facility] DIFFERENTIAL 18:18:00 HEMOGLOBIN A1C 2022-03-01 [facility] 18:18:00 PARTIAL THROMBOPLASTIN TIME 2022-03-01 [facility] (PTT) 18:18:00 PROTHROMBIN TIME WITH INR 2022-03-01 [facility] 18:18:00 REFERRAL- REQUEST/RESPONSE 2022-02-07 Doctor Unassigned, [facility] 05:01:00 [facility] ECG PRE/POST OP 2021-12-12 [facility] 20:54:02 CBC WITH PLATELET AND 2021-12-12 [facility] DIFFERENTIAL 20:25:00 HEMOGLOBIN A1C 2021-12-12 [facility] 20:25:00 TYPE AND SCREEN 2021-12-12 [facility] 20:25:00 PHACOEMULSIFICATION OF 2020-10-14 [facility]isha [facility] CATARACT WITH INTRAOCULAR 13:33:00 [facility] LENS IMPLANT POCT GLUCOSE (AUTOMATED) 2020-10-14 Fausto Moraes [facility] 12:38:00 [facility] POCT GLUCOSE(AGE >30DAYS) 2020-10-14 Anita Edwards [facility] 12:35:00 Medical Branch ASSIGNMENT OF BENEFITS 2020-10-12 [facility] 16:32:53 [facility] POCT GLUCOSE(AGE >30DAYS) 2020-04-01 Grant Skinner [facility] 12:03:00 Medical Branch ASSIGNMENT OF BENEFITS 2020-03-30 [facility] 16:01:28 [facility] NOTICE OF BILLING PRACTICES 2020-03-23 Doctor Unassigned, [facility] FOR MEDICARE PATIENTS 20:49:43 [facility] PATIENT FINANCIAL POLICY 2020-03-23 Doctor Unassigned, [facility] 20:49:19 [facility] NO SHOW OR MISSED APPOINTMENT 2020-03-23 Doctor Unassigned, [facility] POLICY ACKNOWLEDGEMENT 20:48:59 [facility] ranch NOTICE OF PRIVACY PRACTICES 2020-03-23 Doctor Unassigned, [facility] 20:48:48 [facility] CONSENT/REFUSAL FOR DIAGNOSIS 2020-03-23 Doctor Unassigned, [facility] AND TREATMENT 20:48:30 [facility] ASSIGNMENT OF BENEFITS 2020-03-23 [facility] 20:48:19 [facility] PHYSICIAN ORDERS 2020-03-23 Doctor Unassigned, [facility] 05:01:00 [facility] Knee replacement<sup>2</sup> [facility] orial [facility] Fusion<sup>1</sup> [facility] joss Back fusion [facility] Plan of Care Planned Activity Planned Date Details Comments Source Future Scheduled 2023-03-25 Screening for [facility] Test 19:57:38 malignant neoplasm of colon (procedure) [code = 759578559] Future Scheduled 2023-03-25 Screening for [facility] Test 19:57:38 malignant neoplasm of colon (procedure) [code = 715337553] Future Scheduled 2023-03-25 Screening for [facility] Test 19:57:38 malignant neoplasm of colon (procedure) [code = 723428293] Future Scheduled 2023-03-25 Hepatitis C screening [facility] Test 19:57:38 (procedure) [code = 861442234] Future Scheduled 2023-03-25 BREAST CANCER [facility] Test 19:57:38 SCREENING [code = BREAST CANCER SCREENING] Future Scheduled 2023-03-25 Screening for [facility] Test 19:57:38 malignant neoplasm of colon (procedure) [code = 463192078] Future Scheduled 2023-03-25 Screening for [facility] Test 19:57:38 malignant neoplasm of colon (procedure) [code = 006148307] Future Scheduled 2023-03-25 SHINGLES VACCINES ([facility] 19:57:38 of 2) [code = SHINGLES VACCINES (1 of 2)] Future Scheduled 2023-03-25 65+ [facility]OCOCCAL [facility] Test 19:57:38 VACCINE (3 - PCV) [code = 65+ PNEUMOCOCCAL VACCINE (3 - PCV)] Future Scheduled 2023-03-25 COVID-19 VACCINE (6 - Me [facility] Hospital Test 19:57:38 Pfizer series) [code = COVID-19 VACCINE (6 - Pfizer series)] Future Scheduled 2023-03-25 INFLUENZA VACCINE (#1) [facility] 19:57:38 [code = INFLUENZA VACCINE (#1)] Future Scheduled 2023-03-[address] [...] Vaccine (#1)] Future Scheduled 2023-03-04 [facility] 13:22:55 malignant neoplasm of colon (procedure) [code = 165593432] Future Scheduled 2023-03-04 [facility] Test 13:22:55 malignant neoplasm of colon (procedure) [code = 487325019] Future Scheduled 2023-03-04 [facility] Test 13:22:55 malignant neoplasm of colon (procedure) [code = 871765781] Future Scheduled 2023-03-04 Hepatitis C screening [facility] Test 13:22:55 (procedure) [code = 344410368] Future Scheduled 2023-03-04 [facility] Test 13:22:55 SCREENING [code = BREAST CANCER SCREENING] Future Scheduled 2023-03-04 [facility] Test 13:22:55 malignant neoplasm of colon (procedure) [code = 662792426] Future Scheduled 2023-03-04 [facility] Test 13:22:55 malignant neoplasm of colon (procedure) [code = 706158629] Future Scheduled 2023-03-04 SHINGLES VACCINES (1 Met [facility] Test 13:22:55 of 2) [code = SHINGLES VACCINES (1 of 2)] Future Scheduled 2023-03-04 65+ [facility] 13:22:55 VACCINE (3 - PCV) [code = 65+ PNEUMOCOCCAL VACCINE (3 - PCV)] Future Scheduled 2023-03-04 COVID-19 VACCINE (6 - Me [facility] Test 13:22:55 Pfizer series) [code = COVID-19 VACCINE (6 - Pfizer series)] Future Scheduled 2023-03-04 INFLUENZA VACCINE (#1) [facility] Test 13:22:55 [code = INFLUENZA VACCINE (#1)] Future Scheduled 2023-01-27 [facility] 15:11:15 malignant neoplasm of colon (procedure) [code = 017135154] Future Scheduled 2023-01-27 [facility] 15:11:15 malignant neoplasm of colon (procedure) [code = 775885626] Future Scheduled 2023-01-27 [facility] 15:11:15 malignant neoplasm of colon (procedure) [code = 337589901] Future Scheduled 2023-01-27 Hepatitis C screening [facility] Test 15:11:15 (procedure) [code = 088287510] Future Scheduled 2023-01-27 [facility] 15:11:15 SCREENING [code = BREAST CANCER SCREENING] Future Scheduled 2023-01-27 [facility] 15:11:15 malignant neoplasm of colon (procedure) [code = 002862881] Future Scheduled 2023-01-27 [facility] 15:11:15 malignant neoplasm of colon (procedure) [code = 376837222] Future Scheduled 2023-01-27 SHINGLES VACCINES (1 [facility] Test 15:11:15 of 2) [code = SHINGLES VACCINES (1 of 2)] Future Scheduled 2023-01-27 65+ [facility]OCOCCAL [facility] Test 15:11:15 VACCINE (3 - PCV) [code = 65+ PNEUMOCOCCAL VACCINE (3 - PCV)] Future Scheduled 2023-01-27 COVID-19 VACCINE (6 - [facility] Test 15:11:15 Pfizer series) [code = COVID-19 VACCINE (6 - Pfizer series)] Future Scheduled 2023-01-27 INFLUENZA VACCINE Method [facility] Hospital Test 15:11:15 [code = INFLUENZA VACCINE] Future Scheduled 2022-11-03 Hepatitis C screening [facility] Test 07:38:23 (procedure) [code = 472853736] Future Scheduled 2022-11-03 SHINGLES VACCINES (1 Met [facility] Test 07:38:23 of 2) [code = SHINGLES VACCINES (1 of 2)] Future Scheduled 2022-11-03 BREAST CANCER [facility] Test 07:38:23 SCREENING [code = BREAST CANCER SCREENING] Future Scheduled 2022-11-03 COLONOSCOPY SCREENING [facility] Test 07:38:23 [code = COLONOSCOPY SCREENING] Future Scheduled 2022-11-03 65+ [facility] 07:38:23 VACCINE (3 - PCV) [code = 65+ PNEUMOCOCCAL VACCINE (3 - PCV)] Future Scheduled 2022-11-03 INFLUENZA VACCINE [facility] Test 07:38:23 [code = INFLUENZA VACCINE] Future Scheduled 2022-11-03 Hepatitis C screening [facility] Test 07:38:23 (procedure) [code = 335763314] Future Scheduled 2022-11-03 SHINGLES VACCINES (1 [facility] Test 07:38:23 of 2) [code = SHINGLES VACCINES (1 of 2)] Future Scheduled 2022-11-03 BREAST CANCER [facility] Test 07:38:23 SCREENING [code = BREAST CANCER SCREENING] Future Scheduled 2022-11-03 COLONOSCOPY SCREENING [facility] Test 07:38:23 [code = COLONOSCOPY SCREENING] Future Scheduled 2022-11-03 65+ PNEUMOCOCCAL Method[facility] Test 07:38:23 VACCINE (3 - PCV) [code = 65+ PNEUMOCOCCAL VACCINE (3 - PCV)] Future Scheduled 2022-11-03 INFLUENZA VACCINE [facility] Test 07:38:23 [code = INFLUENZA VACCINE] Future Scheduled 2022-10-09 Hepatitis C screening [facility] Test 14:08:24 (procedure) [code = 628670603] Future Scheduled 2022-10-09 SHINGLES VACCINES (1 Met [facility] Test 14:08:24 of 2) [code = SHINGLES VACCINES (1 of 2)] Future Scheduled 2022-10-09 BREAST CANCER [facility] Test 14:08:24 SCREENING [code = BREAST CANCER SCREENING] Future Scheduled 2022-10-09 COLONOSCOPY SCREENING [facility] Test 14:08:24 [code = COLONOSCOPY SCREENING] Future Scheduled 2022-10-09 65+ [facility] 14:08:24 VACCINE (3 - PCV) [code = 65+ PNEUMOCOCCAL VACCINE (3 - PCV)] Future Scheduled 2022-10-09 INFLUENZA VACCINE Method [facility] Test 14:08:24 [code = INFLUENZA VACCINE] Future Scheduled 2022-10-09 Hepatitis C screening [facility] Test 14:08:24 (procedure) [code = 572685977] Future Scheduled 2022-10-09 SHINGLES VACCINES (1 Met [facility] Test 14:08:24 of 2) [code = SHINGLES VACCINES (1 of 2)] Future Scheduled 2022-10-09 BREAST CANCER [facility] Test 14:08:24 SCREENING [code = BREAST CANCER SCREENING] Future Scheduled 2022-10-09 COLONOSCOPY SCREENING [facility] Test 14:08:24 [code = COLONOSCOPY SCREENING] Future Scheduled 2022-10-09 65+ [facility] Test 14:08:24 VACCINE (3 - PCV) [code = 65+ PNEUMOCOCCAL VACCINE (3 - PCV)] Future Scheduled 2022-10-09 INFLUENZA VACCINE Method [facility] Test 14:08:24 [code = INFLUENZA VACCINE] Future Scheduled 2022-10-09 Hepatitis C screening [facility] Test 14:08:24 (procedure) [code = 317360706] Future Scheduled 2022-10-09 SHINGLES VACCINES (1 Met [facility] Test 14:08:24 of 2) [code = SHINGLES VACCINES (1 of 2)] Future Scheduled 2022-10-09 BREAST CANCER [facility] Test 14:08:24 SCREENING [code = BREAST CANCER SCREENING] Future Scheduled 2022-10-09 COLONOSCOPY SCREENING [facility] Test 14:08:24 [code = COLONOSCOPY SCREENING] Future Scheduled 2022-10-09 65+ [facility]OCOCCAL [facility] Test 14:08:24 VACCINE (3 - PCV) [code = 65+ PNEUMOCOCCAL VACCINE (3 - PCV)] Future Scheduled 2022-10-09 INFLUENZA VACCINE [facility] Test 14:08:24 [code = INFLUENZA VACCINE] Future Scheduled 2022-09-25 Hepatitis C screening [facility] Test 16:30:22 (procedure) [code = 795392956] Future Scheduled 2022-09-25 SHINGLES VACCINES (1 [facility] Test 16:30:22 of 2) [code = SHINGLES VACCINES (1 of 2)] Future Scheduled 2022-09-25 BREAST CANCER [facility] Test 16:30:22 SCREENING [code = BREAST CANCER SCREENING] Future Scheduled 2022-09-25 COLONOSCOPY SCREENING [facility] Test 16:30:22 [code = COLONOSCOPY SCREENING] Future Scheduled 2022-09-25 65+ [facility] 16:30:22 VACCINE (3 - PCV) [code = 65+ PNEUMOCOCCAL VACCINE (3 - PCV)] Future Scheduled 2022-09-25 INFLUENZA VACCINE [facility] Test 16:30:22 [code = INFLUENZA [...] Future Scheduled 2022-06-[address] C [address] [facility] Test 00:46:40 (procedure) [code = 643303590] Future Scheduled 2022-06-22 SHINGLES VACCINES (1 [facility] Test 00:46:40 of 2) [code = SHINGLES VACCINES (1 of 2)] Future Scheduled 2022-06-22 [facility] 00:46:40 SCREENING [code = BREAST CANCER SCREENING] Future Scheduled 2022-06-22 COLONOSCOPY SCREENING Me [facility] Test 00:46:40 [code = COLONOSCOPY SCREENING] Future Scheduled 2022-06-22 65+ P[facility]UMOCOCCAL [facility] Test 00:46:40 VACCINE (3 - PCV) [code = 65+ PNEUMOCOCCAL VACCINE (3 - PCV)] Future Scheduled 2022-06-22 INFLUENZA VACCINE [facility] Test 00:46:40 [code = INFLUENZA VACCINE] Future Scheduled 2022-06-22 Hepatitis C screening [facility] Test 00:46:40 (procedure) [code = 605441882] Future Scheduled 2022-06-22 SHINGLES VACCINES (1 Met [facility] Test 00:46:40 of 2) [code = SHINGLES VACCINES (1 of 2)] Future Scheduled 2022-06-22 [facility] 00:46:40 SCREENING [code = BREAST CANCER SCREENING] Future Scheduled 2022-06-22 COLONOSCOPY SCREENING [facility] Test 00:46:40 [code = COLONOSCOPY SCREENING] Future Scheduled 2022-06-22 65+ [facility] 00:46:40 VACCINE (3 - PCV) [code = 65+ PNEUMOCOCCAL VACCINE (3 - PCV)] Future Scheduled 2022-06-22 INFLUENZA VACCINE Method [facility] Test 00:46:40 [code = INFLUENZA VACCINE] Future Scheduled 2022-06-22 Hepatitis C screening [facility] Test 00:46:40 (procedure) [code = 301761452] Future Scheduled 2022-06-22 SHINGLES VACCINES (1 Met [facility] Test 00:46:40 of 2) [code = SHINGLES VACCINES (1 of 2)] Future Scheduled 2022-06-22 [facility] 00:46:40 SCREENING [code = BREAST CANCER SCREENING] Future Scheduled 2022-06-[address] [facility] Test 00:46:40 [code = COLONOSCOPY SCREENING] Future Scheduled 2022-06-22 65+ [facility]OC[facility]CCAL [facility] 00:46:40 VACCINE (3 - PCV) [code = 65+ PNEUMOCOCCAL VACCINE (3 - PCV)] Future Scheduled 2022-06-22 INFLUENZA VACCINE Method [facility] Test 00:46:40 [code = INFLUENZA VACCINE] Future Scheduled 2022-06-11 HEPATITIS B VACCINES Met [facility] Test 01:18:56 (1 of 3 - 3-dose series) [code = HEPATITIS B VACCINES (1 of 3 - 3-dose series)] Future Scheduled 2022-06-11 Hepatitis C screening [facility] Test 01:18:56 (procedure) [code = 528725995] Future Scheduled 2022-06-11 SHINGLES VACCINES (1 Met [facility] Test 01:18:56 of 2) [code = SHINGLES VACCINES (1 of 2)] Future Scheduled 2022-06-11 BREAST CANCER [facility] Test 01:18:56 SCREENING [code = BREAST CANCER SCREENING] Future Scheduled 2022-06-11 COLONOSCOPY SCREENING [facility] Test 01:18:56 [code = COLONOSCOPY SCREENING] Future Scheduled 2022-06-11 65+ [facility]OC[facility]AL [facility] Test 01:18:56 VACCINE (3 - PCV) [code = 65+ PNEUMOCOCCAL VACCINE (3 - PCV)] Future Scheduled 2022-06-11 INFLUENZA VACCINE [facility] Test 01:18:56 [code = INFLUENZA [...] [facility]procedure[facility] [code = 745685597] Future Scheduled [address] [facility] (procedure) [code = 579821427] Future Scheduled 1956 [facility] Future Scheduled [address] [facility] Test 00:00:00 [facility] breast (procedure) [code = 338425190] Future Scheduled [address] [facility] Test 00:00:00 (combo) [code = CT Medical C enter Colonography (combo)] Future Scheduled [address] [facility] Test 00:00:00 [facility] (procedure) [code = 382472160] Future Scheduled [address] [facility] Test 00:00:00 [facility] colon (procedure) [code = 322273431] Future Scheduled 1956 DXA SCAN [code = DXA [facility] Test 00:00:00 SCAN] [facility] Future Scheduled [address] [facility] Test 00:00:00 [facility] colon (procedure) [code = 122946703] Future Scheduled [address] [facility] Test 00:00:00 [facility] colon (procedure) [code = 537876030] Future Scheduled 1956 [facility] [address] [facility] Test 00:00:00 [facility] breast (procedure) [code = 720486417] Future Scheduled [address] [facility] Test 00:00:00 (combo) [code = CT Medical C enter Colonography (combo)] Future Scheduled [address] [facility] Test 00:00:00 [facility] colon (procedure) [code = 779699633] Future Scheduled [address] [facility] Test 00:00:00 [facility] colon (procedure) [code = 833691157] Future Scheduled 1956 DXA SCAN [code = DXA [facility] Test 00:00:00 SCAN] [facility] Future Scheduled [address] [facility] Test 00:00:00 [facility] colon (procedure) [code = 059732698] Future Scheduled [address] [facility] Test 00:00:00 [facility] colon (procedure) [code = 947172035] Future Scheduled 1956 [facility] Sched[facility] [address] [facility] Test 00:00:00 [facility] breast (procedure) [code = 770132733] Future Scheduled [address] [facility] Test 00:00:00 (combo) [code = CT Medical C enter Colonography (combo)] Future Scheduled [address] [facility] Test 00:00:00 [facility] colon (procedure) [code = 396695529] Future Scheduled [address] [facility] Test 00:00:00 [facility] colon (procedure) [code = 741120671] Future Scheduled 1956 DXA SCAN [code = DXA [facility] Test 00:00:00 SCAN] [facility] Future Scheduled [address] [facility] Test 00:00:00 [facility] colon (procedure) [code = 291664938] Future Scheduled [address] [facility] 00:00:00 [facility] colon (procedure) [code = 803301885] Future Scheduled 1956 [facility] Future Scheduled [address] [facility] Test 00:00:00 [facility] breast (procedure) [code = 635219296] Future Scheduled [address] [facility] 00:00:00 (combo) [code = CT Medical C enter Colonography (combo)] Future Scheduled [address] [facility] 00:00:00 [facility] colon (procedure) [code = 006309779] Future Scheduled [address] [facility] Test 00:00:00 [facility] colon (procedure) [code = 821455525] Future Scheduled 1956 DXA SCAN [code = DXA [facility] Test 00:00:00 SCAN] [facility] Future Scheduled [address] [facility] Test 00:00:00 [facility] colon (procedure) [code = 255983906] Future Scheduled [address] [facility] Test 00:00:00 [facility] colon (procedure) [code = 299070284] Future Scheduled 1956 [facility]] [facility] Future Scheduled [address] [facility] Test 00:00:00 [facility] breast (procedure) [code = 535762209] Future Scheduled [address] [facility] Test 00:00:00 (combo) [code = CT Medical C enter Colonography (combo)] Future Scheduled [address] [facility] Test 00:00:00 [facility] colon (procedure) [code = 532711624] Future Scheduled [address] [facility] Test 00:00:00 [facility] ne[facility] colon (procedure) [code = 777900827] Future Scheduled 1956 DXA SCAN [code = DXA [facility] Test 00:00:00 SCAN] [facility] Future Scheduled [address] [facility] Test 00:00:00 [facility] colon (procedure) [code = 540532836] Future Scheduled [address] [facility] Test 00:00:00 [facility] colon (procedure) [code = 507038037] Future Scheduled 1956 [facility]] [facility] Future Scheduled [address] [facility] Test 00:00:00 [facility] breast (procedure) [code = 313995652] Future Scheduled [address] [facility] 00:00:00 (combo) [code = CT Medical C enter Colonography (combo)] Future Scheduled [address] [facility] Test 00:00:00 [facility] colon (procedure) [code = 760917290] Future Scheduled [address] [facility] 00:00:00 [facility] colon (procedure) [code = 630712584] Future Scheduled 1956 DXA SCAN [code = DXA [facility] Test 00:00:00 SCAN] [facility] Future Scheduled [address] [facility] Test 00:00:00 [facility] colon (procedure) [code = 188433458] Future Scheduled [address] [facility] Test 00:00:00 [facility] colon (procedure) [code = 005478146] Future Scheduled 1956 [facility]] [facility] Future Scheduled [address] [facility] Test 00:00:00 [facility] breast (procedure) [code = 176299473] Future Scheduled [address] [facility] 00:00:00 [facility] breast (procedure) [code = 551255748] Future Scheduled [address] [facility] 00:00:00 (combo) [code = CT Medical C enter Colonography (combo)] Future Scheduled [address] [facility] 00:00:00 [facility] colon (procedure) [code = 337273271] Future Scheduled [address] [facility] Test 00:00:00 [facility] colon (procedure) [code = 986315996] Future Scheduled 1956 DXA SCAN [code = DXA [facility] Test 00:00:00 SCAN] [facility] Future Scheduled [address] [facility] Test 00:00:00 [facility] colon (procedure) [code = 292484366] Future Scheduled [address] [facility] Test 00:00:00 malignant ne[facility] colon (procedure) [code = 586198125] Future Scheduled 1956 [facility] 00:[facility]] [facility] Future Scheduled [address] [facility] 00:00:00 (combo) [code = CT Medical C enter Colonography (combo)] Future Scheduled [address] [facility] Test 00:00:00 [facility] breast (procedure) [code = 735796017] Future Scheduled [address] [facility] 00:00:00 (combo) [code = CT Medical C enter Colonography (combo)] Future Scheduled [address] [facility] Test 00:00:00 [facility] colon (procedure) [code = 990182279] Future Scheduled [address] [facility] 00:00:00 [facility] colon (procedure) [code = 398333989] Future Scheduled [address] [facility] 00:00:00 [facility] colon (procedure) [code = 271802772] Future Scheduled 1956 DXA SCAN [code = DXA [facility] Test 00:00:00 SCAN] [facility] Future Scheduled [address] [facility] Test 00:00:00 [facility] colon (procedure) [code = 720934456] Future Scheduled [address] [facility] Test 00:00:00 [facility] colon (procedure) [code = 389616212] Future Scheduled 1956 [facility] Sched[facility] [address] [facility] 00:00:00 [facility] colon (procedure) [code = 246295951] Future Scheduled [address] [facility] Test 00:00:00 [facility] breast (procedure) [code = 746347640] Future Scheduled [address] [facility] 00:00:00 (combo) [code = CT Medical C enter Colonography (combo)] Future Scheduled [address] [facility] 00:00:00 [facility] colon (procedure) [code = 343643046] Future Scheduled [address] [facility] 00:00:00 [facility] colon (procedure) [code = 408222474] Future Scheduled 1956 DXA SCAN [code = DXA [facility] 00:00:00 SCAN] [facility] Future Scheduled 1956 DXA SCAN [code = DXA [facility] Test 00:00:00 SCAN] [facility] Future Scheduled [address] [facility] 00:00:00 [facility] colon (procedure) [code = 563942439] Future Scheduled [address] [facility] 00:00:00 [facility] colon (procedure) [code = 213648086] Future Scheduled 1956 [facility] Future Scheduled [address] [facility] Test 00:00:00 [facility] colon (procedure) [code = 900781037] Future Scheduled [address] [facility] 00:00:00 [facility]) [code = 184973097] Future Scheduled [address] [facility] 00:00:00 (combo) [code = CT Medical C enter Colonography (combo)] Future Scheduled [address] [facility] 00:00:00 [facility]procedure) [code = 446714105] Future Scheduled [address] [facility] Test 00:00:00 [facility] colon (procedure) [code = 172263401] Future Scheduled 1956 DXA SCAN [code = D[facility] Test 00:00:00 SCAN] [facility] Future Scheduled [address] [facility] Test 00:00:00 [facility] (procedure) [code = 439210825] Encounters Start End Encounter Admission Attending Care Care Encounter Source Date/Time Date/Time Type Type Clinicians Facility Department ID 2023-04-16 Out[facility] [id number] Common 14:04:01 [facility] [address] [facility] 2023-04-04 Inpatient ER DEARY, [facility] [id number] SLE 03:07:10 USELYN 2023-04-03 Inpatient ER DEARY, [facility] [id number] SLE 02:32:56 USELYN 2023-04-02 Inpatient ER DEARY, [facility] [id number] SLE 02:37:04 USELYN 2023-04-01 Inpatient ER DEARY, [facility] [id number] SLE 02:38:03 USELYN 2023-03-31 Inpatient ER DEARY, [facility] [id number] SLE 02:13:34 USELYN 2023-03-30 Inpatient ER DEARY, [facility] [id number] SLE 00:01:49 USELYN 2023-03-29 Inpatient ER DEARY, [facility] [id number] SLE 00:00:59 USELYN 2023-03-28 Inpatient ER CAPPS, [facility]H SLEH [id number] SLEH 16:24:16 DRISS 2023-03-28 Inpatient ER YSABEL, SLEH SLEH [id number] SLEH 16:05:38 MINI 2023-03-28 Inpatient ER DEARY, SLEH SLEH [id number] SLEH 00:01:01 USELYN 2023-03-27 Inpatient ER DEARY, SLEH SLEH [id number] SLEH 00:59:45 USELYN 2023-03-27 Inpatient ER JOY, SLEH SLEH [id number] SLEH 00:00:00 IVORY 2023-03-26 Inpatient ER DEATOOTIE, SLEH SLEH [id number] SLEH 00:34:57 USELYN 2023-03-25 Inpatient ER JEFRY, SLEH SLEH [id number] SLEH 20:31:25 DRISS 2023-03-25 Inpatient ER ANGY, SLEH SLEH [id number] SLEH 00:26:45 USELYN 2023-03-25 Inpatient ER SLEH SLEH [id number] SLEH 00:00:00 2023-03-24 Inpatient ER SLEH SLEH [id number] SLEH 14:47:44 2023-03-24 Inpatient ER DEARY, SLEH SLEH [id number] SLEH 00:08:53 USELYN 2023-03-23 Inpatient ER GRANT, SLEH SLEH [id number] SLEH 14:53:33 THUSHARA 2023-03-23 Inpatient ER GRANT, SLEH SLEH [id number] [facility]:07[facility] ER DEARY, SLEH SLEH [id number] SLEH 02:45:23 USELYN 2023-03-23 Inpatient ER DEARY, SLEH SLEH [id number] SLEH 00:00:00 USELYN 2023-03-22 Inpatient ER DEARY, SLEH SLEH [id number] SLEH 00:05:06 USELYN 2023-03-21 Inpatient ER DEARY, SLEH SLEH [id number] SLEH 00:10:50 USELYN 2023-03-20 Inpatient ER CEZAR, SLEH SLEH [id number] SLEH 07:12:06 SUBHASIS 2023-03-20 Inpatient ER DEARY, SLEH SLEH [id number] SLEH 00:00:27 USELYN 2023-03-19 Inpatient ER DEARY, SLEH SLEH [id number] SLEH 01:16:24 USELYN 2023-03-18 Inpatient ER DEARY, SLEH SLEH [id number] SLEH 00:03:21 USELYN 2023-03-17 Inpatient ER DEATOOTIE, SLEH SLEH [id number] SLEH 02:43:51 USELYN 2023-03-16 Inpatient ER JOY, SLEH SLEH [id number] SLEH 14:52:49 IVORY 2023-03-16 Inpatient ER JOY, SLEH SLEH [id number] SLEH 09:06:23 IVORY 2023-03-15 Inpatient ER ANGY, SLEH SLEH [id number] SLEH 19:47:11 USELYN 2023-03-11 Inpatient ER CARTER, SLEH SLEH [id number] SLEH 20:31:51 COPENHAGEN 2023-03-11 Inpatient ER SLEH SLEH [id number] SLEH 09:59:31 2023-03-11 Inpatient ER SLEH SLEH [id number] SLEH 09:59:20 2023-03-11 Inpatient ER SLEH SLEH [id number] SLEH 09:57:20 2023-03-07 Inpatient ER PALEJWALA, SLEH SLEH [id number] SLEH 16:02:58 [facility] 2023-03-07 Inpatient ER YANIRA, SLEH SLEH [id number] SLEH 05:10:52 [facility] 2023-03-06 Inpatient ER YANIRA, SLEH SLEH [id number] SLEH 13:57:19 [facility] 2023-03-06 Inpatient ER ATASSI, SLEH SLEH [id number] SLEH 08:25:19 CAM 2023-03-06 Inpatient ER ATASSI, SLEH SLEH [id number] SLEH 08:25:10 CMA 2023-03-06 Inpatient ER PALEJWALA, SLEH SLEH [id number] SLEH 00:51:30 [facility] 2023-01-27 [facility] [id number] [facility] [place] [facility] 00:00:00 [facility] 2022-11-13 Outpatient 3 [id number] ENCPL CRD [id number] [facility] 15:05:25 [facility] 2022-11-08 Outpatient 3 [id number] ENCPL CRD [id number] [facility] 09:30:23 [facility] 2022-11-07 Outpatient 3 [id number] ENCPL REF [id number] [facility] 21:38:12 [facility] 2022-08-14 Outpatient Mora, STLMLC STLMLC [id number] Common 07:43:01 Dann [address] [facility] 2022-08-04 Outpatient Mora, STLMLC STLMLC [id number] Common 13:26:01 Dann 88[address] [facility] 2022-08-03 Outpatient Mora, STLMLC STLMLC [id number] Common 14:53:01 Dann 28427 [facility] 2022-07-25 Outpatient Mora, STLMLC STLMLC [id number] Common 15:59:02 Dann 166[address] [facility] 2022-07-24 Outpatient Mora, STLMLC STLMLC [id number] Common 07:39:00 Dann [address] [facility] 2022-07-19 Outpatient Mora, STLMLC STLMLC [id number] Common 08:46:01 [facility] [address] [facility] 2022-07-15 Inpatient AR Schmid, HCACL ADMI [id number] [facility] 11:05:[address] 2022-06-20 [facility] [id number] [address] [place] [address] 00:00:00 [facility] 2022-06-15 Outpatient Mora, STLMLC STLMLC [id number] Common 08:26:02 Dnan [address] [facility] 2022-05-25 Outpatient Mora, STLMLC STLMLC [id number] Common 11:25:01 Dann 275[address] [facility] 2022-02-27 Outpatient Mora, STLMLC STLMLC [id number] Common 10:42:02 [facility] 2022-02-03 Outpatient Rubio, STLMLC STLMLC [id number] Common 12:12:00 Avnee [facility] 2022-01-31 Outpatient Rubio, STLMLC STLMLC [id number] Common 12:38:00 Avnee [facility] 2021-12-02 Outpatient Rubio, STLMLC STLMLC [id number] Common 15:52:01 Avnee [facility] 2021-12-01 Outpatient Rubio, STLMLC STLMLC [id number] Common 10:24:03 Avnee [facility] 2021-11-21 Outpatient Rubio, STLMLC STLMLC [id number] Common 10:05:12 Avnee [facility] 2021-11-08 Outpatient Rubio, STLMLC STLMLC [id number] Common 08:37:01 Avnee [facility] 2021-11-04 Outpatient Rubio, STLMLC STLMLC [id number] Common 14:15:04 Avnee [facility] 2021-10-31 Outpatient Arrieta, Na STLMLC STLMLC [id number] Common 09:40:02 [facility] 2021-08-04 Outpatient 3 [id number] ENCPL REF [id number] [facility] 13:44:15 [facility] [place] [facility] 2021-08-04 Outpatient 3 [id number] ENCPL REF [id number] [facility] 13:21:20 1122 [facility] [place] 2021-05-08 Outpatient Estevan MORAES [facility] [id number] Univers 08:53:46 [facility] 2021-05-06 Outpatient Estevan MORAES [facility] ECTOR [id number] Univers 18:47:42 [facility]USTO [facility] 2023-04-24 2023-04-24 Outpatient AR MAYER [facility] [id number] SLEH 00:00:00 00:00:00 ELÍAS 2023-03-05 2023-04-09 Inpatient ER MING SLE Surgery [id number] SLEH 21:46:00 18:51:00 THOR 2023-04-09 2023-04-09 Outpatient AR HAMILTON [facility] [id number] SLEH 02:25:36 02:25:36 DANIEL 2023-04-08 2023-04-08 Outpatient AR TRAVIS [facility] [id number] SLE 02:51:49 02:51:49 USELYN 2023-04-07 2023-04-07 Outpatient AR TRAVIS [facility] [id number] SLEH 02:09:36 02:09:36 USELYN 2023-04-06 2023-04-06 Outpatient AR TRAVIS [facility] [id number] SLEH 02:53:56 02:53:56 USELYN 2023-04-05 2023-04-05 Outpatient AR TRAVIS [facility] [id number] SLEH 02:55:25 02:55:25 USELYN 2023-03-11 2023-03-11 Inpatient ER [facility] [id number] SLEH 07:34:20 23:59:00 2023-03-06 2023-03-06 Outpatient YANIRA [facility] [id number] SLEH 00:00:00 00:00:00 SEUN 2022-12-26 2022-12-26 Transition JENNY Yang 1.2.840.114 [id number] Univers 00:00:00 00:00:00 of Care Ivan CHASE 350.1.13.10 ity of [id number] [address] [address] 2022-12-25 2022-12-25 Patient Doctor ROSELIA 1.2.840.114 [id number] Univers 00:00:00 00:00:00 Secure Msg Unassigned, CINDY 350.1.13.10 ity of [place] [facility] 4.2.7.2.686 [place] as [id number] [facility] 019 Branch 2022-12-14 2022-12-22 Inpatient X RAJNI [facility] NIMCO [id number] Univers 17:38:00 17:36:00 [place] adam [facility] 2022-12-14 2022-12-22 Hospital Sarahy Durán [facility] 1.2.8 40.114 [id number] Univers 17:38:00 17:36:00 Encounter Tavo Nickerson 350.1.13.10 ity of [facility] 4.2.7.2.686 [facility] [id number] Medical 080 Branch 2022-12-21 2022-12-21 Surgery Essence, [facility] 1.2.840.114 [id number] Univers 14:20:00 15:56:00 Leyla RIOS 350.1.13.10 [place] [id number] [facility] 020 Branch 2022-11-08 2022-11-08 Transition JENNY Ruiz 1.2.840.114 [id number] Univers 00:00:00 00:00:00 of Care Daija CHASE 350.1.13.10 [place] [id number] [facility] 403 Branch 2022-11-04 2022-11-07 Outpatient X RAJNI [facility] NIMCO [id number] Univers 13:24:00 17:38:00 [place] adam [facility] 2022-11-04 2022-11-07 Emergency Katherin Persaud [facility] 1.2.840 .114 [id number] Univers 13:24:00 17:38:00 [place] Urban 350.1.13.10 [place] [id number] [facility] 081 Branch 2022-08-15 2022-08-15 OFFICE [facility] [id number] Co mmon 00:00:00 00:00:00 VISIT Spirit ESTAB PT - CHI LEVEL 4 [facility] 2022-07-26 2022-07-26 (TEL) STLMLC STLMLC [id number] Co mmon 00:00:00 00:00:00 [facility] 2022-07-13 2022-07-13 (TEL) STLMLC STLMLC [id number] Co mmon 00:00:00 00:00:00 [facility] 2022-06-22 2022-07-07 Inpatient UR Adonis Gaytan [facility].01 G001 [id number] [facility] 09:01:00 17:11:00 00 [facility] 2022-06-08 2022-06-08 (TEL) STLMLC STLMLC [id number] Co mmon 00:00:00 00:00:00 [facility] 2022-05-31 2022-05-31 (TEL) STLMLC STLMLC [id number] Co mmon 00:00:00 00:00:00 [facility] 2022-04-26 2022-04-26 [facility], 1.2.840.1 [id number] Methodi 06:55:00 12:55:00 Encounter Jose E. 48685.1.[address] 3.430.2.7 Hospit a .3.343982 l .8 2022-04-26 2022-04-26 [facility], 1.2.840.1 [id number] Methodi 06:55:00 12:55:00 Encounter Jose E. 20657.1.[address] 3.430.2.7 Hospit a .3.324126 l .8 2022-04-26 2022-04-26 Anesthesia Reji Waldrop 1.2.840.1 1 [id number] Methodi 09:56:00 11:03:00 Event Ce Knutson 14325.1.[address] 3.430.2.7 Hospit a .3.575139 l .8 2022-04-26 2022-04-26 Anesthesia Reji Waldrop 1.2.840.1 1 [id number] Methodi 09:56:00 11:03:00 Event Ce Knutson 18084.1.[address] 3.430.2.7 Hospit a .3.947257 l .8 2022-04-26 2022-04-26 Surgery Oppermann, 1.2.840.1 [id number] 962 [id number] Methodi 09:15:00 10:45:00 Jose E. 97551.1.1 677 s t 3.430.2.7 Hospit a .3.423080 l .8 2022-04-26 2022-04-26 [facility], 1.2.840.1 [id number] 326 [id number] Methodi 09:15:00 10:45:00 Jose E. 90372.1.1 677 s t 3.430.2.7 Hospit a .3.856579 l .8 2022-04-26 2022-04-26 Travel 1.2.840.1 1.2.844.890 4352 774431 Methodi 00:00:00 00:00:[address] 3.430.2.7 0.2.7.3.698 Ho spita .3.767827 084.8 l .8 2022-04-26 2022-04-26 Travel 1.2.840.1 1.2.294.177 3372 026066 Methodi 00:00:00 00:00:[address] 3.430.2.7 0.2.7.3.698 Ho spita .3.812372 084.8 l .8 2022-04-24 2022-04-24 Travel 1.2.840.1 1.2.858.598 8550 861480 Methodi 00:00:00 00:00:[address] 3.430.2.7 0.2.7.3.698 Ho spita .3.618767 084.8 l .8 2022-04-24 2022-04-24 Travel 1.2.840.1 1.2.075.444 8553 178708 Methodi 00:00:00 00:00:[address] 3.430.2.7 0.2.7.3.698 Ho spita .3.406235 084.8 l .8 2022-04-21 2022-04-21 Prep for Optremaynemann, 1.2.840.1 [id number] 21 [id number] Methodi 00:00:00 00:00:00 Surgery Jose Keller 55264.1.1 940 s t 3.430.2.7 Hospit a .3.804911 l .8 2022-04-21 2022-04-21 Orders Oppermann, 1.2.840.1 [id number] 486 [id number] Methodi 00:00:00 00:00:00 Only Jose Keller 82955.1.1 613 s t 3.430.2.7 Hospit a .3.694217 l .8 2022-04-05 2022-04-05 Outpatient R [facility] [id number] 763 Univers 15:00:00 15:00:00 [facility] 2022-03-21 2022-03-21 Office Optremaynemann, 1.2.840.1 [id number] 605 [id number] Methodi 11:30:00 12:00:24 Visit Jose Keller 82605.1.1 407 s t 3.430.2.7 Hospit a .3.827174 l .8 2022-03-21 2022-03-21 Travel 1.2.840.1 1.2.104.428 9934 805244 Methodi 00:00:00 00:00:[address] 3.430.2.7 0.2.7.3.698 Ho spita .3.673917 084.8 l .8 2022-03-15 2022-03-15 Outpatient R [facility] [id number] 708 Univers 10:00:00 10:00:00 [facility] 2022-03-14 2022-03-14 (TEL) [facility] [id number] Co mmon 00:00:00 00:00:00 [facility] 2022-03-06 2022-03-06 [facility], 1.2.840.1 [id number] 21 [id number] Methodi 05:46:00 12:05:00 Encounter Jose Keller 50575.1.[address] 3.430.2.7 Hospit a .3.695663 l .8 2022-03-06 2022-03-06 Anesthesia Jory Santoro 1.2.840. 1 [id number] Methodi 07:44:00 09:46:00 Event Corrina Cavanaugh 67786.1.[address] 3.430.2.7 Hospit a .3.258757 l .8 2022-03-06 2022-03-06 Surgery [facility], 1.2.840.1 [id number] 828 [id number] Methodi 07:45:00 09:05:00 Jose Luevano. 72657.1.1 269 s t 3.430.2.7 Hospit a .3.502339 l .8 2022-03-01 2022-03-01 Pre-Admiss [facility], 1.2.840.1 [id number] Methodi 13:00:00 14:00:00 ion Jose Keller 69641.1.1 998 s t Testing 3.430.2.7 Hospit a .3.269493 l .8 2022-03-01 2022-03-01 Travel 1.2.840.1 1.2.339.703 9217 650571 Methodi 00:00:00 00:00:[address] 3.430.2.7 0.2.7.3.698 Ho spita .3.167699 084.8 l .8 2022-02-27 2022-02-27 SUB ANNUAL [facility] [id number] Common 00:00:00 00:00:00 [facility] Spirit WELLNESS - [facility]I VISIT [facility] 2022-02-27 2022-02-27 OFFICE STLMLC STLMLC [id number] Co mmon 00:00:00 00:00:00 VISIT [facility] LEVEL 4 [facility] 2022-02-27 2022-02-27 (TEL) STLMLC STLMLC [id number] Co mmon 00:00:00 00:00:00 [facility] 2022-02-07 2022-02-07 Orders Doctor ROSELIA 1.2.840.114 [id number] Univers 00:00:00 00:00:00 Only Unassigned, CIDNY 350.[facility].13.10 [facility] 4.2.7.2.686 [place] 393.8124363 [place] [address] [address] 2022-02-02 2022-02-02 (TEL) STLMLC STLMLC [id number] Co mmon 00:00:00 00:00:00 [facility] 2022-01-31 2022-01-31 Travel 1.2.840.1 1.2.333.965 6658 482189 Methodi 00:00:00 00:00:[address] 3.430.2.7 0.2.7.3.698 [facility]84[facility]8 [facility] .8 2022-01-27 2022-01-27 (TEL) STLMLC STLMLC [id number] Co mmon 00:00:00 00:00:00 [facility] 2021-12-30 2021-12-30 (TEL) STLMLC STLMLC [id number] Co mmon 00:00:00 00:00:00 [facility] 2021-12-29 2021-12-29 (TEL) STLMLC STLMLC [id number] Co mmon 00:00:00 00:00:00 [facility] 2021-12-19 2021-12-19 (TEL) STLMLC STLMLC [id number] Co mmon 00:00:00 00:00:00 [facility] 2021-12-13 2021-12-13 (TEL) STLMLC STLMLC [id number] Co mmon 00:00:00 00:00:00 [facility] 2021-12-12 2021-12-12 Pre-Admiss Eugenio, 1.2.840.1 [id number] Methodi 15:00:00 16:00:00 isabelle Keller 80430.1.1 317 s t Testing 3.430.2.7 Hospit a .3.492031 l .8 2021-12-12 2021-12-12 Travel 1.2.840.1 1.2.600.417 1512 556994 Methodi 00:00:00 00:00:[address] 3.430.2.7 0.2.7.3.698 Ho spita .3.795839 084.8 l .8 2021-12-08 2021-12-08 (TEL) STLMLC STLMLC [id number] Co mmon 00:00:00 00:00:00 [facility] 2021-12-01 2021-12-01 (TEL) STLMLC STLMLC [id number] Co mmon 00:00:00 00:00:00 [facility] 2021-11-30 2021-11-30 (TEL) STLMLC STLMLC [id number] Co mmon 00:00:00 00:00:00 [facility] 2021-11-25 2021-11-25 (TEL) STLMLC STLMLC [id number] Co mmon 00:00:00 00:00:00 [facility] 2021-11-21 2021-11-21 (TEL) STLMLC STLMLC [id number] Co mmon 00:00:00 00:00:00 [facility] 2021-11-18 2021-11-18 (TEL) STLMLC STLMLC [id number] Co mmon 00:00:00 00:00:00 [facility] 2021-11-15 2021-11-15 Office Eugenio, 1.2.840.1 [id number] 748 [id number] Methodi 13:00:00 14:01:57 Visit Jose Keller 80287.1.1 465 s t 3.430.2.7 Hospit a .3.366545 l .8 2021-11-15 2021-11-15 Prep for Allen, 1.2.840.1 [id number] 46274 18626 Methodi 00:00:00 00:00:00 Surgery Funmi Sarabia 26057.1.[address] 3.430.2.7 Hospit a .3.430420 l .8 2021-11-15 2021-11-15 Travel 1.2.840.1 1.2.431.759 6609 334842 Methodi 00:00:00 00:00:[address] 3.430.2.7 0.2.7.3.698 Ho spita .3.018075 084.8 l .8 2021-11-15 2021-11-15 (TEL) STLMLC STLMLC [id number] Co mmon 00:00:00 00:00:00 [facility] 2021-11-14 2021-11-14 (TEL) STLMLC STLMLC [id number] Co mmon 00:00:00 00:00:00 [facility] 2021-11-04 2021-11-04 (TEL) STLMLC STLMLC [id number] Co mmon 00:00:00 00:00:00 [facility] 2021-10-31 2021-10-31 (TEL) STLMLC STLMLC [id number] Co mmon 00:00:00 00:00:00 [facility] 2021-10-20 2021-10-20 Telephone Stephane, 1.2.840.1 [id number] 2100 [id number] Methodi 00:00:00 00:00:[address] 3.430.2.7 Hospit a .3.440582 l .8 2021-10-05 2021-10-05 Documentat Chace, 1.2.840.1 [id number] 21 [id number] Methodi 00:00:00 00:00:00 ion Angel 85443.1.[address] 3.430.2.7 Hospit a .3.145035 l .8 2021-09-22 2021-09-22 Travel 1.2.840.1 1.2.356.811 5454 248801 Methodi 00:00:00 00:00:[address] 3.430.2.7 0.2.7.3.698 Ho spita .3.606841 084.8 l .8 2021-08-23 2021-08-23 Ambulatory nullFlavo MNA [id number] 20103 Memoria 14:15:00 14:15:00 Pre-Reg r Neurology 06 l Estelle Saucedo 2021-08-23 2021-08-23 Ambulatory nullFlavo MNA 94339 48225 Memoria 14:15:00 14:15:00 Pre-Reg r Neurology 06 l Estelle Saucedo 2021-08-23 2021-08-23 Outpatient [facility] STEFANI [id number] Memoria 08:15:00 08:15:00 06 josy KleinLewis 2021-08-23 2021-08-23 Outpatient [id number] 08:15:00 08:15:00 Farhan Herminia Arian 2021-07-12 2021-07-12 Ambulatory nullFlavo MNA 46265 41085 Memoria 14:15:00 14:15:00 Pre-Reg r Neurology 05 l [place] Lewis 2021-07-12 2021-07-12 Ambulatory nullFlavo MNA 65565 14429 Memoria 14:15:00 14:15:00 Pre-Reg r Neurology 05 l Estelle Saucedo 2021-07-12 2021-07-12 Outpatient CORWIN Michel [facility] [id number] 08:15:00 08:15:00 Farhan Mela Don 2021-06-14 2021-06-14 Telephone Courtney 1.2.840.1 [id number] Methodi 00:00:00 00:00:[address] 3.430.2.7 Hospit a .3.605405 l .8 2021-06-01 2021-06-01 Outpatient [facility] IE [id number] 465 Memoria 09:00:00 09:00:00 05 josy Saucedo 2021-05-19 2021-05-19 Ambulatory nullFlavo MNA [id number] 34969 Memoria 14:15:00 14:15:00 Pre-Reg r Neurology 04 l Estelle Saucedo 2021-05-19 2021-05-19 Ambulatory nullFlavo MNA 08938 76718 Memoria 14:15:00 14:15:00 Pre-Reg r Neurology 04 l Estelle Saucedo 2021-05-19 2021-05-19 Outpatient Anand LÁZARO [facility] [id number] 08:15:00 08:15:00 Farhan Mehdi Don 2021-05-10 2021-05-10 Outpatient [facility] IE [id number] Memoria 15:45:00 15:45:00 04 josy Saucedo 2021-03-31 2021-03-31 Ambulatory nullFlavo MNA 89538 10970 Memoria 13:15:00 13:15:00 Pre-Reg r Neurology 03 l Estelle Saucedo 2021-03-31 2021-03-31 Ambulatory nullFlavo MNA 25372 40498 Memoria 13:15:00 13:15:00 Pre-Reg r Neurology 03 l Estelle Saucedo 2021-03-31 2021-03-31 Outpatient [facility] IE [id number] 465 Memoria 08:15:00 08:15:00 03 josy Saucedo 2021-03-31 2021-03-31 Outpatient CORWIN Michel [facility] [id number] 08:15:00 08:15:00 Farhan 03 Arian 2021-02-23 2021-02-24 Outpatient nullFlavo MNA 80189 53526 Memoria 20:00:00 04:59:59 r Neurology 02 josy Saucedo 2021-02-23 2021-02-24 Outpatient nullFlavo MNA [id number] 17554 Memoria 20:00:00 04:59:59 r Neurology 02 l Estelle Kleinann 2021-02-23 2021-02-23 Outpatient CORWIN Michel [facility] [id number] 15:00:00 23:59:59 Farhan Don 2021-02-23 2021-02-23 Outpatient [facility] IE [id number] 465 Harsh 15:00:00 15:00:00 02 josy Saucedo 2020-10-14 2020-10-14 Surgery [facility] 1.2.840.114 [id number] 08:34:00 09:10:00 [place] 350.1.13.10 [place] 4.2.7.2.686 Surgical [id number] [place] [address] 2020-10-14 2020-10-14 Surgery [place] 1.2.840.114 [id number] [facility] 08:34:00 09:10:00 Fausto Rios 350.1.13.10 i [place]2.[place] [id number] [address] 2020-10-12 2020-10-12 Quality Control Manager Jyoti, [facility] 1.2.840.114 [id number] 11:40:06 11:55:06 Visit Lab Main [place] 350.1.13.10 [place] 4.2.7.2.686 Professio [id number] [address] 2020-10-12 2020-10-12 Quality Control Manager Jyoti, [facility] Lab Main [facility] 1.2.8 40.114 [id number] [facility] 11:40:06 11:55:06 Visit Fausto Moraes 350.1.1 3.10 ity [place].7.2.[place] Profess[place] [id number] [place] [address] 2020-10-12 2020-10-12 [facility] Only[facility] 1.2.840.114 [id number] 11:34:36 11:49:36 Only Test [place] 350.1.13.10 [place] 4.2.7.2.686 [place] [id number] [facility] 2020-10-12 2020-10-12 Laboratory Only, [facility] Test [facility] 1.2.840. 114 [id number] [facility] 11:34:36 11:49:36 Only Fausto Moraes 350.1.1 3.10 ity of [place] 4.2.7.2.[address] [place] [facility] [id number] [facility] [address] 2020-10-12 2020-10-12 Outpatient Estevan MORAES [facility] [id number] Univers 10:45:00 10:45:00 FAUSTO adam [facility] 2020-10-12 2020-10-12 Orders Doctor ROSELIA 1.2.840.114 [id number] 00:00:00 00:00:00 Only Unassigned, CINDY 350.1.13.10 [place] [facility] 4.2.7.2.686 [id number] 009 2020-10-12 2020-10-12 Orders Doctor ROSELIA 1.2.840.114 [id number] Univers 00:00:00 00:00:00 Only Unassigned, CINDY 350.1.13.10 ity of [place] [facility] 4.2.7.2.686 [place] [id number] [facility] [address] 2020-05-13 2020-05-14 Outpatient SUSAN WHITE [facility] 021 [id number] [place] 00:00:00 00:00:00 361 Method i 2020-05-11 2020-05-11 Outpatient AMY [facility] [id number] [place] 00:00:00 00:00:00 [address]MR[address] 2020-04-01 2020-04-01 [facility] 1.2.840.114 [id number] 06:36:00 10:10:00 Encounter Fausto Rios 350.1.13.10 [place] 4.2.7.2.686 Surgical [id number] [place] [address] 2020-04-01 2020-04-01 [facility] 1.2.840.114 [id number] [facility] 06:36:00 10:10:00 Encounter Fausto Rios 350.1.13.10 ity of [place] 4.2.7.2.686 [facility] Surgical [id number] Med [address] 2020-04-01 2020-04-01 Anesthesia Ralph Christensen [facility] 1.2.840.11 4 [id number] 08:01:00 08:33:00 [facility] 350.1.13.10 [place] 4.2.7.2.686 Surgical [id number] [place] 020 2020-04-01 2020-04-01 Anesthesia Ralph Christensen [facility] 1.2.840.11 4 [id number] Univers 08:01:00 08:33:00 Sly Tracy Rios 350.1.13.10 ity of [place].2.[place] [id number] [facility] [address] 2020-03-31 2020-03-31 Outpatient R ALEISHA [facility] [id number] Univers 09:30:00 09:30:00 FAUSTO itagus of [facility] 2020-03-30 2020-03-30 Outpatient R [facility] [id number] Univers 12:45:00 12:45:00 ity of [facility] 2020-03-30 2020-03-30 Laboratory Only, Adc Test [facility] 1.2.840. 114 [id number] Univers 11:17:56 11:32:56 Only Fausto Moraes 350.1.1 3.10 ity of [place] 4[place].2.686 [place] [id number] [facility] [address] [place] 2020-03-30 2020-03-30 Orders Doctor ROSELIA 1.2.840.114 [id number] Univers 00:00:00 00:00:00 Only Unassigned, CINDY 350.1.13.10 ity of [place] [facility] 4.2.7.2.686 [place] as [id number] [facility] [address] 2020-03-25 2020-03-25 Outpatient AMY, [facility] 021 [id number] [id number] [place] 00:00:00 00:00:[address]MRAN [address] 2020-03-23 2020-03-23 Quality Control Manager Jyoti, Adc Lab Main [facility] 1.2.8 40.114 [id number] Univers 15:51:10 16:06:10 Visit Fausto Moraes 350.1.1 3.10 ity of [place] 4.2.7.2.686 [place] Profess[place] [id number] [address] 2020-03-23 2020-03-23 Outpatient Estevan MORAES [facility] [id number] Univers 16:00:00 16:00:00 FAUSTO adam [facility] 2020-03-23 2020-03-23 Outpatient AMY [facility] 2100 [id number] [place] 00:00:00 00:00:00 TUSHAR [address] 2020-03-23 2020-03-23 Outpatient MODESTA [facility] 626 [id number] [place] 00:00:00 00:00:00 KI, [address] Results Test Description Test Time Test Comments Results Result Comments Source POCT-GLUCOSE METER 2023-04-09 18:36:17 Test Item Value Reference Range Interpretation Comme nts POC-GLUCOSE METER (BEAKER) 77 mg/dL 70-110 : [facility] (test code = 1538) ATT[place] T X, 46428: Wheat Washer/Techni patricia ID = [id number] for Gene Desire POCT-GLUCOSE [id number] 14:12:17 Test Item Value Reference Range Interpretation Comments POC-GLUCOSE METER 113 mg/dL 70-110 H : [facility] ([place] (test code = [facility], 1538) 14786: Wheat Washer/Techni patricia ID = [id number] for JORDAN DE LA GARZA XR CHEST 1 VIEW PORTABLE / [id number] 09:31:38 [facility] : 1955 Sex: FXR CHEST 1 VIEW PORTABLE / BEDSIDEINDICATION: s/p ACB surgeryCOMPARISON: Prior day's examFINDINGS: Portable frontal view of the chest. IMPRESSION:Support Lines: No significant change. Lungs and pleura: Unchanged airspace and pleural opacities. Nopneumothorax.Heart and mediastinum: Stable contours. Additional findings: None.Electronically Signed By: Keyon Ortega04/09/2023 09:33 CDTWorkstation Name: [id number] METABOLIC [id number] 05:44:14 Test Item Value Reference Range Interpretation Comments SODIUM (BEAKER) 136 meq/L 136-145 (test code = 381) POTASSIUM 3.8 meq/L 3.5-5.1 (BEAKER) (test code = 379) CHLORIDE (BEAKER) 103 meq/L 98-107 (test code = 382) CO2 (BEAKER) 20 meq/L 22-29 L (test code = 355) BLOOD UREA 48 mg/dL 7-21 H NITROGEN (BEAKER) (test code = 354) CREATININE 4.96 mg/dL 0.57-1.25 H (BEAKER) (test code = 358) GLUCOSE RANDOM 113 mg/dL 70-105 H (BEAKER) (test code = 652) CALCIUM (BEAKER) 8.7 mg/dL 8.4-10.2 (test code = 697) EGFR (BEAKER) 9 Interpretatio n of eGFR (test code = mL/min/1.73 values Stage De scription 1092) sq m Result G1 Keiry l or high >=90 G2 Mildly decreased 60-89 G3a Mildl y to moderately 45-5 9 G3b Moderately to s everely 30-44 G4 Severl y decreased 15-29 G5 Kidne y failure <15Reported eGF R is based on the CKD-EPI 2020 equation that d oes not use a race coefficientEsti mated GFR is not as accur ate as Creatinine Birdie snyder in predicting glom erular filtration rate . Estimated GFR is not appl icable for dialysis patien ts Wheat Washer ID - JAKE [id number] 05:29:51 Test Item Value Reference Range Interpretation Comments PHOSPHORUS (BEAKER) (test code = 4.4 mg/dL 2.3-4.7 604) Wheat Washer ID - JAKE [id number] 05:29:50 Test Item Value Reference Range Interpretation Comments MAGNESIUM (BEAKER) (test code = 1.6 mg/dL 1.6-2.6 627) Wheat Washer ID - JAKE CRESPO SATURATION, [id number] 04:46:14 Test Item Value Reference Range Interpretation Comments O2 SATURATION (MEASURED) (BEAKER) 96.4 % (test code = 1455) [id number] 04:38:50 Test Item Value Reference Range Interpretation Comments PROTIME (BEAKER) (test code = 17.1 seconds 11.9-14.2 H 759) INR (BEAKER) (test code = 370) 1.41 <=5.90 PARTIAL THROMBOPLASTIN TIME 41.6 seconds 22.5-36.0 H (BEAKER) (test code = 760) RECOMMENDED COUMADIN/WARFARIN INR THERAPY RANGESSTANDARD DOSE: 2.0 - 3.0 Includes: PROPHYLAXIS for venous thrombosis, systemic embolization; TREATMENT for venous thrombosis and/or pulmonary embolus.HIGH RISK: Target INR is 2.5-3.5 for patients with mechanical heart valves.CBC W/PLT COUNT & AUTO [id number] 04:34:56 Test Item Value Reference Range Interpretation Comments WHITE BLOOD CELL COUNT (BEAKER) 7.0 K/ L 3.5-10.5 (test code = 775) RED BLOOD CELL COUNT (BEAKER) 2.73 M/ L 3.93-5.22 L (test code = 761) HEMOGLOBIN (BEAKER) (test code = 8.1 GM/DL 11.2-15.7 L 410) HEMATOCRIT (BEAKER) (test code = 26.1 % 34.1-44.9 L 411) MEAN CORPUSCULAR VOLUME (BEAKER) 96 fL 79-95 H (test code = 753) MEAN CORPUSCULAR HEMOGLOBIN 29.7 pg 25.6-32.2 (BEAKER) (test code = 751) MEAN CORPUSCULAR HEMOGLOBIN CONC 31.0 GM/DL 32.2-35.5 L (BEAKER) (test code = 752) RED CELL DISTRIBUTION WIDTH 15.5 % 11.7-14.4 H (BEAKER) (test code = 412) PLATELET COUNT (BEAKER) (test 119 K/CU MM 150-450 L code = 756) MEAN PLATELET VOLUME (BEAKER) 9.1 fL 9.4-12.3 L (test code = 754) NUCLEATED RED BLOOD CELLS 0 /100 WBC 0-0 (BEAKER) (test code = 413) NEUTROPHILS RELATIVE PERCENT 78 % (BEAKER) (test code = 429) LYMPHOCYTES RELATIVE PERCENT 8 % (BEAKER) (test code = 430) MONOCYTES RELATIVE PERCENT 7 % (BEAKER) (test code = 431) EOSINOPHILS RELATIVE PERCENT 7 % (BEAKER) (test code = 432) BASOPHILS RELATIVE PERCENT 0 % (BEAKER) (test code = 437) NEUTROPHILS ABSOLUTE COUNT 5.42 K/ L 1.56-6.13 (BEAKER) (test code = 670) LYMPHOCYTES ABSOLUTE COUNT 0.53 K/ L 1.18-3.74 L (BEAKER) (test code = 414) MONOCYTES ABSOLUTE COUNT (BEAKER) 0.51 K/ L 0.24-0.36 H (test code = 415) EOSINOPHILS ABSOLUTE COUNT 0.46 K/ L 0.04-0.36 H (BEAKER) (test code = 416) BASOPHILS ABSOLUTE COUNT (BEAKER) 0.01 K/ L 0.01-0.08 (test code = 417) IMMATURE GRANULOCYTES-RELATIVE 0.30 % 0.00-1.00 PERCENT (BEAKER) (test code = 2801) POCT-GLUCOSE [id number] 21:32:39 Test Item Value Reference Range Interpretation Comments POC-GLUCOSE METER 70 mg/dL 70-110 : TESTED A T [facility] 6720 (BEAKER) (test code [facility], = 1538) 58630: Wheat Washer/Techni patricia ID = [id number] for Ezeh , Natalia POCT-GLUCOSE [id number] 17:21:56 Test Item Value Reference Range Interpretation Comments POC-GLUCOSE METER 203 mg/dL 70-110 H : TESTED A T [facility] 6720 (BEAKER) (test code = [facility], 1538) 63139: Wheat Washer/Techni patricia ID = [id number] for OR PHEY, ALESSIO POCT-GLUCOSE [id number] 11:59:04 Test Item Value Reference Range Interpretation Comments POC-GLUCOSE METER 274 mg/dL 70-110 H : TESTED A T [facility] 6720 (BEAKER) (test code = [facility], 1538) [id number]: Wheat Washer/Techni patricia ID = [id number] for OR PHEY, ALESSIO POCT-GLUCOSE [id number] 07:55:45 Test Item Value Reference Range Interpretation Comments POC-GLUCOSE METER 147 mg/dL 70-110 H : TESTED A T [facility] 6720 (BEAKER) (test code = [facility] [place], 1538) [address]: Wheat Washer/Techni patricia ID = [id number] for OR PHEY, ALESSIO XR CHEST 1 VIEW PORTABLE / [id number] 06:48:27 [facility] : 1955 Sex: FCLINICAL INDICATION: s/p ACB surgeryComparison: 04/07/2023The cardiomediastinal contours are stable.Centralpulmonary vascular congestion and bilateral parenchymalopacities are similar to previous.There is nopneumothorax.A tunneled right IJ dialysis catheter remains in place.Electronically Signed By: Cristi carpenter 06:50 CDTWorkstation Name: [id number] SATURATION, MEASURED 2023-04-08 05:45:30 Test Item Value Reference Range Interpretation Comments O2 SATURATION (MEASURED) (BEAKER) 97.7 % (test code = 1455) BASIC METABOLIC [id number] 05:19:11 Test Item Value Reference Range Interpretation Comments SODIUM (BEAKER) 141 meq/L 136-145 (test code = 381) POTASSIUM 3.9 meq/L 3.5-5.1 (BEAKER) (test code = 379) CHLORIDE (BEAKER) 106 meq/L 98-107 (test code = 382) CO2 (BEAKER) 20 meq/L 22-29 L (test code = 355) BLOOD UREA 34 mg/dL 7-21 H NITROGEN (BEAKER) (test code = 354) CREATININE 4.17 mg/dL 0.57-1.25 H (BEAKER) (test code = 358) GLUCOSE RANDOM 169 mg/dL 70-105 H (BEAKER) (test code = 652) CALCIUM (BEAKER) 8.9 mg/dL 8.4-10.2 (test code = 697) EGFR (BEAKER) 11 Interpretatio n of eGFR (test code = mL/min/1.73 values Stage De scription 1092) sq m Result G1 Keiry l or high >=90 G2 Mildly decreased 60-89 G3a Mildl y to moderately 45-5 9 G3b Moderately to s everely 30-44 G4 Severl y decreased 15-29 G5 Kidney failure <15Reported eGF R is based on the CKD-EPI 2020 equation that d oes not use a race coefficientEsti mated GFR is not as accur ate as Creatinine Birdie lillian in predicting glom erular filtration rate . Estimated GFR is not appl icable for dialysis patien ts Wheat Washer ID - [id number] 05:16:31 Test Item Value Reference Range Interpretation Comments MAGNESIUM (BEAKER) (test code = 1.6 mg/dL 1.6-2.6 627) Wheat Washer ID - [id number] 05:16:31 Test Item Value Reference Range Interpretation Comments PHOSPHORUS (BEAKER) (test code = 4.3 mg/dL 2.3-4.7 604) Wheat Washer ID - [id number] 04:59:38 Test Item Value Reference Range Interpretation Comments PROTIME (BEAKER) (test code = 16.3 seconds 11.9-14.2 H 759) INR (BEAKER) (test code = 370) 1.31 <=5.90 PARTIAL THROMBOPLASTIN TIME 38.5 seconds 22.5-36.0 H (BEAKER) (test code = 760) RECOMMENDED COUMADIN/WARFARIN INR THERAPY RANGESSTANDARD DOSE: 2.0 - 3.0 Includes: PROPHYLAXIS for venous thrombosis, systemic embolization; TREATMENT for venous thrombosis and/or pulmonary embolus.HIGH RISK: Target INR is 2.5-3.5 for patients with mechanical heart valves.CBC W/PLT COUNT & AUTO [id number] 04:58:03 Test Item Value Reference Range Interpretation Comments WHITE BLOOD CELL COUNT (BEAKER) 7.2 K/ L 3.5-10.5 (test code = 775) RED BLOOD CELL COUNT (BEAKER) 2.85 M/ L 3.93-5.22 L (test code = 761) HEMOGLOBIN (BEAKER) (test code = 8.2 GM/DL 11.2-15.7 L 410) HEMATOCRIT (BEAKER) (test code = 27.5 % 34.1-44.9 L 411) MEAN CORPUSCULAR VOLUME (BEAKER) 97 fL 79-95 H (test code = 753) MEAN CORPUSCULAR HEMOGLOBIN 28.8 pg 25.6-32.2 (BEAKER) (test code = 751) MEAN CORPUSCULAR HEMOGLOBIN CONC 29.8 GM/DL 32.2-35.5 L (BEAKER) (test code = 752) RED CELL DISTRIBUTION WIDTH 15.8 % 11.7-14.4 H (BEAKER) (test code = 412) PLATELET COUNT (BEAKER) (test 133 K/CU MM 150-450 L code = 756) MEAN PLATELET VOLUME (BEAKER) 9.2 fL 9.4-12.3 L (test code = 754) NUCLEATED RED BLOOD CELLS 0 /100 WBC 0-0 (BEAKER) (test code = 413) NEUTROPHILS RELATIVE PERCENT 79 % (BEAKER) (test code = 429) LYMPHOCYTES RELATIVE PERCENT 9 % (BEAKER) (test code = 430) MONOCYTES RELATIVE PERCENT 7 % (BEAKER) (test code = 431) EOSINOPHILS RELATIVE PERCENT 5 % (BEAKER) (test code = 432) BASOPHILS RELATIVE PERCENT 0 % (BEAKER) (test code = 437) NEUTROPHILS ABSOLUTE COUNT 5.64 K/ L 1.56-6.13 (BEAKER) (test code = 670) LYMPHOCYTES ABSOLUTE COUNT 0.61 K/ L 1.18-3.74 L (BEAKER) (test code = 414) MONOCYTES ABSOLUTE COUNT (BEAKER) 0.50 K/ L 0.24-0.36 H (test code = 415) EOSINOPHILS ABSOLUTE COUNT 0.39 K/ L 0.04-0.36 H (BEAKER) (test code = 416) BASOPHILS ABSOLUTE COUNT (BEAKER) 0.02 K/ L 0.01-0.08 (test code = 417) IMMATURE GRANULOCYTES-RELATIVE 0.30 % 0.00-1.00 PERCENT (BEAKER) (test code = 2801) POCT-GLUCOSE [id number] 18:00:35 Test Item Value Reference Range Interpretation Comments POC-GLUCOSE METER 216 mg/dL 70-110 H : TESTED A T [facility] 6720 (TRAN) (test code = [facility], 1538) 61826: Wheat Washer/Techni patricia ID = [id number] for Fauzia Carter POCT-GLUCOSE [id number] 11:35:05 Test Item Value Reference Range Interpretation Comments POC-GLUCOSE METER 184 mg/dL 70-110 H : TESTED A T [facility] 6720 ([facility] (test code = [facility], 1538) 85653: Wheat Washer/Techni patricia ID = [id number] for Juan DYSONA POCT-GLUCOSE [id number] 09:03:16 Test Item Value Reference Range Interpretation Comments POC-GLUCOSE METER 165 mg/dL 70-110 H : TESTED A T [facility] 6720 (TRAN) (test code = [facility], 1538) 55911: Wheat Washer/Techni patricia ID = [id number] for KARIS, S HIKARA XR CHEST 1 VIEW PORTABLE / [id number] 08:20:21 [facility] : 1955 Sex: FXR CHEST 1 VIEW PORTABLE / BEDSIDEINDICATION: s/p ACB surgeryCOMPARISON: Prior day's examFINDINGS: Portable frontal view of the chest. IMPRESSION:Support Lines: Central catheter tip overlies the atriocaval junction. Lungs and pleura: Scattered bilateral interstitial thickening is grosslyunchanged suggestiveof minimal volume overload. No significantpneumothorax.Heart and mediastinum: Stable contours. Stable surgical changes.Additional findings: None.Electronically Signed By: Taya Phelps04/07/2023 08:22CDTWorkstation Name: [id number] METABOLIC [id number] 05:25:13 Test Item Value Reference Range Interpretation Comments SODIUM (BEAKER) 138 meq/L 136-145 (test code = 381) POTASSIUM 3.4 meq/L 3.5-5.1 L (BEAKER) (test code = 379) CHLORIDE (BEAKER) 102 meq/L 98-107 (test code = 382) CO2 (BEAKER) 25 meq/L 22-29 (test code = 355) BLOOD UREA 17 mg/dL 7-21 NITROGEN (BEAKER) (test code = 354) CREATININE 2.63 mg/dL 0.57-1.25 H (BEAKER) (test code = 358) GLUCOSE RANDOM 158 mg/dL 70-105 H (BEAKER) (test code = 652) CALCIUM (BEAKER) 8.6 mg/dL 8.4-10.2 (test code = 697) EGFR (BEAKER) 19 Interpretatio n of eGFR (test code = mL/min/1.73 values Stage De scription 1092) sq m Result G1 Keiry l or high >=90 G2 Mildly decreased 60-89 G3a Mildl y to moderately 45-5 9 G3b Moderately to s everely 30-44 G4 Severl y decreased 15-29 G5 Kidney failure <15Reported eGF R is based on the CKD-EPI 2020 equation that d oes not use a race coefficientEsti mated GFR is not as accur ate as Creatinine Birdie lillian in predicting glom erular filtration rate . Estimated GFR is not appl icable for dialysis patien ts Wheat Washer ID - [id number] 05:23:31 Test Item Value Reference Range Interpretation Comments MAGNESIUM (BEAKER) (test code = 1.6 mg/dL 1.6-2.6 627) Wheat Washer ID - [id number] 05:23:31 Test Item Value Reference Range Interpretation Comments PHOSPHORUS (BEAKER) (test code = 3.5 mg/dL 2.3-4.7 604) Wheat Washer ID - ADMINPT/[id number] 04:57:54 Test Item Value Reference Range Interpretation Comments PROTIME (BEAKER) (test code = 16.2 seconds 11.9-14.2 H 759) INR (BEAKER) (test code = 370) 1.30 <=5.90 PARTIAL THROMBOPLASTIN TIME 44.0 seconds 22.5-36.0 H (BEAKER) (test code = 760) RECOMMENDED COUMADIN/WARFARIN INR THERAPY RANGESSTANDARD DOSE: 2.0 - 3.0 Includes: PROPHYLAXIS for venous thrombosis, systemic embolization; TREATMENT for venous thrombosis and/or pulmonary embolus.HIGH RISK: Target INR is 2.5-3.5 for patients with mechanical heart valves.CBC W/PLT COUNT & AUTO [id number] 04:48:30 Test Item Value Reference Range Interpretation Comments WHITE BLOOD CELL COUNT (BEAKER) 7.3 K/ L 3.5-10.5 (test code = 775) RED BLOOD CELL COUNT (BEAKER) 2.90 M/ L 3.93-5.22 L (test code = 761) HEMOGLOBIN (BEAKER) (test code = 8.2 GM/DL 11.2-15.7 L 410) HEMATOCRIT (BEAKER) (test code = 28.0 % 34.1-44.9 L 411) MEAN CORPUSCULAR VOLUME (BEAKER) 97 fL 79-95 H (test code = 753) MEAN CORPUSCULAR HEMOGLOBIN 28.3 pg 25.6-32.2 (BEAKER) (test code = 751) MEAN CORPUSCULAR HEMOGLOBIN CONC 29.3 GM/DL 32.2-35.5 L (BEAKER) (test code = 752) RED CELL DISTRIBUTION WIDTH 16.1 % 11.7-14.4 H (BEAKER) (test code = 412) PLATELET COUNT (BEAKER) (test 142 K/CU MM 150-450 L code = 756) MEAN PLATELET VOLUME (BEAKER) 8.8 fL 9.4-12.3 L (test code = 754) NUCLEATED RED BLOOD CELLS 0 /100 WBC 0-0 (BEAKER) (test code = 413) NEUTROPHILS RELATIVE PERCENT 80 % (BEAKER) (test code = 429) LYMPHOCYTES RELATIVE PERCENT 9 % (BEAKER) (test code = 430) MONOCYTES RELATIVE PERCENT 7 % (BEAKER) (test code = 431) EOSINOPHILS RELATIVE PERCENT 4 % (BEAKER) (test code = 432) BASOPHILS RELATIVE PERCENT 0 % (BEAKER) (test code = 437) NEUTROPHILS ABSOLUTE COUNT 5.83 K/ L 1.56-6.13 (BEAKER) (test code = 670) LYMPHOCYTES ABSOLUTE COUNT 0.66 K/ L 1.18-3.74 L (BEAKER) (test code = 414) MONOCYTES ABSOLUTE COUNT (BEAKER) 0.50 K/ L 0.24-0.36 H (test code = 415) EOSINOPHILS ABSOLUTE COUNT 0.28 K/ L 0.04-0.36 (BEAKER) (test code = 416) BASOPHILS ABSOLUTE COUNT (BEAKER) 0.01 K/ L 0.01-0.08 (test code = 417) IMMATURE GRANULOCYTES-RELATIVE 0.30 % 0.00-1.00 PERCENT (BEAKER) (test code = 2801) OXYGEN SATURATION, [id number] 04:39:54 Test Item Value Reference Range Interpretation Comments O2 SATURATION (MEASURED) (BEAKER) 85.1 % (test code = 1455) POCT-GLUCOSE [id number] 22:16:54 Test Item Value Reference Range Interpretation Comments POC-GLUCOSE METER 90 mg/dL 70-110 : TESTED A T [facility] 6720 (BEAKER) (test code = [facility], 153) 45830: Wheat Washer/Techni patricia ID = [id number] for STAL FRANCIE, MICHAEL POCT-GLUCOSE [id number] 21:40:51 Test Item Value Reference Range Interpretation Comments POC-GLUCOSE METER 54 mg/dL 70-110 L : TESTED A T [facility] 6720 (BEAKER) (test code = [facility], 1538) 81937: Wheat Washer/Techni patricia ID = [id number] for STAL LINGS, MICHAEL POCT-GLUCOSE [id number] 21:24:48 Test Item Value Reference Range Interpretation Comments POC-GLUCOSE METER 46 mg/dL 70-110 L : TESTED A T [facility] 6720 (BEAKER) (test code = [facility], 1538) 29167: Wheat Washer/Techni patricia ID = [id number] for STAL LINGS, MICHEAL POCT-GLUCOSE [id number] 17:55:47 Test Item Value Reference Range Interpretation Comments POC-GLUCOSE METER 275 mg/dL 70-110 H : TESTED A T [facility] 6720 (TRAN) (test code = [facility], 153) 61846: Wheat Washer/Techni patricia ID = [id number] for OR ALESSIO AGUILAR HEPATITIS B CORE ANTIBODY, [id number] 15:32:21 Test Item Value Reference Range Interpretation Comments HEPATITIS B CORE TOTAL ANTIBODY Nonreactive Nonreactive (SAWAKER) (test code = 497) Wheat Washer ID - ADMINHEPATITIS B CORE ANTIBODY, [id number] 15:32:20 Test Item Value Reference Range Interpretation Comments HEPATITIS B CORE IGM ANTIBODY Nonreactive Nonreactive (SAWAKER) (test code = 645) Wheat Washer ID - ADMINHEPATITIS B SURFACE [id number] 15:32:19 Test Item Value Reference Range Interpretation Comments HEPATITIS B SURFACE ANTIGEN (2) Nonreactive Nonreactive ([facility]) (test code = 2585) Specimen is considered negative for HBsAg.POCT-GLUCOSE [id number] 12:42:13 Test Item Value Reference Range Interpretation Comments POC-GLUCOSE METER 145 mg/dL 70-110 H : TESTED A T [facility] 6720 (TRAN) (test code = [facility], 1538) [id number]: Wheat Washer/Techni patricia ID = [id number] for OR ALESSIO AGUILAR POCT-GLUCOSE [id number] 11:26:37 Test Item Value Reference Range Interpretation Comments POC-GLUCOSE METER 119 mg/dL 70-110 H : TESTED A T [facility] 6720 ([facility]) (test code = [facility], 1538) 33418: Wheat Washer/Techni patricia ID = [id number] for Tsang nil, Elke XR CHEST 1 VIEW PORTABLE / [id number] 08:39:04 [facility] : 1955 Sex: FXR CHEST 1 VIEW PORTABLE / BEDSIDEINDICATION: s/p ACB surgeryCOMPARISON: Prior day's examTECHNIQUE: Portable frontal view(s) of the chest. FINDINGS: Support Lines and Devices: Stable. Lungs and pleura: Unchanged airspace and pleural opacities. Nopneumothorax identified.Heart and mediastinum: Stable contours. Stable surgical changes.Additional findings: Cervical fusion hardware is identified.IMPRESSION:1. No significant change from prior exam.2. Central pulmonary vascular congestion. Electronically Signed By: Garret Morel04/06/2023 08:41 CDTWorkstation Name: [id number] 08:12:38 Test Item Value Reference Range Interpretation Comments POC-GLUCOSE METER 199 mg/dL 70-110 H : TESTED A T [facility] 6720 (BEAKER) (test [facility] = [facility]re[facility], 1538) [id number]: Wheat Washer/Techni patricia ID = [id number] for OR ALESSIO AGUILAR BASIC METABOLIC [id number] 05:31:29 Test Item Value Reference Range Interpretation Comments SODIUM (BEAKER) 139 meq/L 136-145 (test code = 381) POTASSIUM 3.9 meq/L 3.5-5.1 (BEAKER) (test code = 379) CHLORIDE (BEAKER) 103 meq/L 98-107 (test code = 382) CO2 (BEAKER) 25 meq/L 22-29 (test code = 355) BLOOD UREA 18 mg/dL 7-21 NITROGEN (BEAKER) (test code = 354) CREATININE 2.73 mg/dL 0.57-1.25 H (BEAKER) (test code = 358) GLUCOSE RANDOM 157 mg/dL 70-105 H (BEAKER) (test code = 652) CALCIUM (BEAKER) 8.7 mg/dL 8.4-10.2 (test code = 697) EGFR (BEAKER) 19 Interpretatio n of eGFR (test code = mL/min/1.73 values Stage De scription 1092) sq m Result G1 Keiry l or high >=90 G2 Mildly decreased 60-89 G3a Mildl y to moderately 45-5 9 G3b Moderately to s everely 30-44 G4 Severl y decreased 15-29 G5 Kidney failure <15Reported eGF R is based on the CKD-EPI 2020 equation that d oes not use a race coefficientEsti mated GFR is not as accur ate as Creatinine Birdie lillian in predicting glom erular filtration rate . Estimated GFR is not appl icable for dialysis patien ts Wheat Washer ID Gali JOSEPH [id number] 05:28:25 Test Item Value Reference Range Interpretation Comments MAGNESIUM (BEAKER) (test code = 1.7 mg/dL 1.6-2.6 627) Wheat Washer ID Gali JOSEPH [id number] 05:28:25 Test Item Value Reference Range Interpretation Comments PHOSPHORUS (BEAKER) (test code = 3.1 mg/dL 2.3-4.7 604) Wheat Washer ID Gali JOSEPH [id number] 05:07:14 Test Item Value Reference Range Interpretation Comments PROTIME (BEAKER) (test code = 16.6 seconds 11.9-14.2 H 759) INR (BEAKER) (test code = 370) 1.35 <=5.90 PARTIAL THROMBOPLASTIN TIME 46.3 seconds 22.5-36.0 H (BEAKER) (test code = 760) RECOMMENDED COUMADIN/WARFARIN INR THERAPY RANGESSTANDARD DOSE: 2.0 - 3.0 Includes: PROPHYLAXIS for venous thrombosis, systemic embolization; TREATMENT for venous thrombosis and/or pulmonary embolus.HIGH RISK: Target INR is 2.5-3.5 for patients with mechanical heart valves.CBC W/PLT COUNT & AUTO [id number] 05:03:56 Test Item Value Reference Range Interpretation Comments WHITE BLOOD CELL COUNT (BEAKER) 8.8 K/ L 3.5-10.5 (test code = 775) RED BLOOD CELL COUNT (BEAKER) 2.71 M/ L 3.93-5.22 L (test code = 761) HEMOGLOBIN (BEAKER) (test code = 7.9 GM/DL 11.2-15.7 L 410) HEMATOCRIT (BEAKER) (test code = 26.0 % 34.1-44.9 L 411) MEAN CORPUSCULAR VOLUME (BEAKER) 96 fL 79-95 H (test code = 753) MEAN CORPUSCULAR HEMOGLOBIN 29.2 pg 25.6-32.2 (BEAKER) (test code = 751) MEAN CORPUSCULAR HEMOGLOBIN CONC 30.4 GM/DL 32.2-35.5 L (BEAKER) (test code = 752) RED CELL DISTRIBUTION WIDTH 16.5 % 11.7-14.4 H (BEAKER) (test code = 412) PLATELET COUNT (BEAKER) (test 135 K/CU MM 150-450 L code = 756) MEAN PLATELET VOLUME (BEAKER) 9.3 fL 9.4-12.3 L (test code = 754) NUCLEATED RED BLOOD CELLS 0 /100 WBC 0-0 (BEAKER) (test code = 413) NEUTROPHILS RELATIVE PERCENT 84 % (BEAKER) (test code = 429) LYMPHOCYTES RELATIVE PERCENT 6 % (BEAKER) (test code = 430) MONOCYTES RELATIVE PERCENT 6 % (BEAKER) (test code = 431) EOSINOPHILS RELATIVE PERCENT 3 % (BEAKER) (test code = 432) BASOPHILS RELATIVE PERCENT 0 % (BEAKER) (test code = 437) NEUTROPHILS ABSOLUTE COUNT 7.37 K/ L 1.56-6.13 H (BEAKER) (test code = 670) LYMPHOCYTES ABSOLUTE COUNT 0.52 K/ L 1.18-3.74 L (BEAKER) (test code = 414) MONOCYTES ABSOLUTE COUNT (BEAKER) 0.55 K/ L 0.24-0.36 H (test code = 415) EOSINOPHILS ABSOLUTE COUNT 0.29 K/ L 0.04-0.36 (BEAKER) (test code = 416) BASOPHILS ABSOLUTE COUNT (BEAKER) 0.01 K/ L 0.01-0.08 (test code = 417) IMMATURE GRANULOCYTES-RELATIVE 0.30 % 0.00-1.00 PERCENT (BEAKER) (test code = 2801) OXYGEN SATURATION, [id number] 04:54:52 Test Item Value Reference Range Interpretation Comments O2 SATURATION (MEASURED) (BEAKER) 86.1 % (test code = 1455) POCT-GLUCOSE [id number] 21:09:55 Test Item Value Reference Range Interpretation Comments POC-GLUCOSE METER 128 mg/dL 70-110 H : TESTED A T [facility] 6720 (BEAKER) (test code = SARMAD Barreto [facility], 1538) 45244: Wheat Washer/Techni patricia ID = [id number] for KLARISSA DICKEY POCT-GLUCOSE [id number] 12:22:40 Test Item Value Reference Range Interpretation Comments POC-GLUCOSE METER 210 mg/dL 70-110 H : TESTED A T [facility] 6720 (BEAKER) (test code = [facility] Estevan [facility], 1538) 48633: Wheat Washer/Techni patricia ID = [id number] for JORDAN DE LA GARZA POCT-GLUCOSE [id number] 07:41:36 Test Item Value Reference Range Interpretation Comments POC-GLUCOSE METER 120 mg/dL 70-110 H : TESTED A T [facility] 6720 (SAWAKER) (test code = [facility] Estevan [facility], 1538) 02563: Wheat Washer/Techni patricia ID = [id number] for JORDAN DE LA GARZA XR CHEST 1 VIEW PORTABLE / [id number] 07:02:52 [facility] : 1955 Sex: FXR CHEST 1 VIEW PORTABLE / BEDSIDEINDICATION: s/p ACB surgeryCOMPARISON: Prior day's examTECHNIQUE: Portable frontal view(s) of the chest. FINDINGS: Support Lines and Devices: Stable. Lungs and pleura: Unchanged airspace and pleural opacities. Nopneumothorax identified.Heart and mediastinum: Stable contours. Stable surgical changes.Additional findings: Cervical fusion hardware is identified. Scatteredatherosclerotic vascular calcifications.IMPRESSION:1. No significant change from prior exam.2. Bibasilar linear atelectasis.Electronically Signed By: Garret Morel04/05/2023 07:04 CDTWorkstation Name: [id number] METABOLIC [id number] 06:07:28 Test Item Value Reference Range Interpretation Comments SODIUM (BEAKER) 135 meq/L 136-145 L (test code = 381) POTASSIUM 4.4 meq/L 3.5-5.1 (BEAKER) (test code = 379) CHLORIDE (BEAKER) 100 meq/L 98-107 (test code = 382) CO2 (BEAKER) 22 meq/L 22-29 (test code = 355) BLOOD UREA 41 mg/dL 7-21 H NITROGEN (BEAKER) (test code = 354) CREATININE 4.30 mg/dL 0.57-1.25 H (BEAKER) (test code = 358) GLUCOSE RANDOM 89 mg/dL 70-105 (BEAKER) (test code = 652) CALCIUM (BEAKER) 8.9 mg/dL 8.4-10.2 (test code = 697) EGFR (BEAKER) 11 Interpretatio n of eGFR (test code = mL/min/1.73 values Stage De scription 1092) sq m Result G1 Keiry l or high >=90 G2 Mildly decreased 60-89 G3a Mildl y to moderately 45-5 9 G3b Moderately to s everely 30-44 G4 Severl y decreased 15-29 G5 Kidney failure <15Reported eGF R is based on the CKD-EPI 2020 equation that d oes not use a race coefficientEsti mated GFR is not as accur ate as Creatinine Birdie snyder in predicting glom erular filtration rate . Estimated GFR is not appl icable for dialysis patien ts Wheat Washer ID - [id number] 06:02:36 Test Item Value Reference Range Interpretation Comments MAGNESIUM (BEAKER) (test code = 1.8 mg/dL 1.6-2.6 627) Wheat Washer ID - [id number] 06:02:36 Test Item Value Reference Range Interpretation Comments PHOSPHORUS (BEAKER) (test code = 4.7 mg/dL 2.3-4.7 604) Wheat Washer ID - ADMINOXYGEN SATURATION, [id number] 04:41:31 Test Item Value Reference Range Interpretation Comments O2 SATURATION (MEASURED) (BEAKER) 91.8 % (test code = 1455) CBC W/PLT COUNT & AUTO [id number] 04:40:01 Test Item Value Reference Range Interpretation Comments WHITE BLOOD CELL COUNT (BEAKER) 11.0 K/ L 3.5-10.5 H (test code = 775) RED BLOOD CELL COUNT (BEAKER) 2.75 M/ L 3.93-5.22 L (test code = 761) HEMOGLOBIN (BEAKER) (test code = 8.0 GM/DL 11.2-15.7 L 410) HEMATOCRIT (BEAKER) (test code = 26.3 % 34.1-44.9 L 411) MEAN CORPUSCULAR VOLUME (BEAKER) 96 fL 79-95 H (test code = 753) MEAN CORPUSCULAR HEMOGLOBIN 29.1 pg 25.6-32.2 (BEAKER) (test code = 751) MEAN CORPUSCULAR HEMOGLOBIN CONC 30.4 GM/DL 32.2-35.5 L (BEAKER) (test code = 752) RED CELL DISTRIBUTION WIDTH 16.6 % 11.7-14.4 H (BEAKER) (test code = 412) PLATELET COUNT (BEAKER) (test 137 K/CU MM 150-450 L code = 756) MEAN PLATELET VOLUME (BEAKER) 9.3 fL 9.4-12.3 L (test code = 754) NUCLEATED RED BLOOD CELLS 0 /100 WBC 0-0 (BEAKER) (test code = 413) NEUTROPHILS RELATIVE PERCENT 84 % (BEAKER) (test code = 429) LYMPHOCYTES RELATIVE PERCENT 6 % (BEAKER) (test code = 430) MONOCYTES RELATIVE PERCENT 7 % (BEAKER) (test code = 431) EOSINOPHILS RELATIVE PERCENT 3 % (BEAKER) (test code = 432) BASOPHILS RELATIVE PERCENT 0 % (BEAKER) (test code = 437) NEUTROPHILS ABSOLUTE COUNT 9.21 K/ L 1.56-6.13 H (BEAKER) (test code = 670) LYMPHOCYTES ABSOLUTE COUNT 0.64 K/ L 1.18-3.74 L (BEAKER) (test code = 414) MONOCYTES ABSOLUTE COUNT (BEAKER) 0.77 K/ L 0.24-0.36 H (test code = 415) EOSINOPHILS ABSOLUTE COUNT 0.32 K/ L 0.04-0.36 (BEAKER) (test code = 416) BASOPHILS ABSOLUTE COUNT (BEAKER) 0.01 K/ L 0.01-0.08 (test code = 417) IMMATURE GRANULOCYTES-RELATIVE 0.40 % 0.00-1.00 PERCENT (BEAKER) (test code = 2801) [id number] 04:28:23 Test Item Value Reference Range Interpretation Comments PROTIME (BEAKER) (test code = 18.2 seconds 11.9-14.2 H 759) INR (BEAKER) (test code = 370) 1.52 <=5.90 PARTIAL THROMBOPLASTIN TIME 55.9 seconds 22.5-36.0 H (BEAKER) (test code = 760) RECOMMENDED COUMADIN/WARFARIN INR THERAPY RANGESSTANDARD DOSE: 2.0 - 3.0 Includes: PROPHYLAXIS for venous thrombosis, systemic embolization; TREATMENT for venous thrombosis and/or pulmonary embolus.HIGH RISK: Target INR is 2.5-3.5 for patients with mechanical heart valves.POCT-GLUCOSE [id number] 22:06:47 Test Item Value Reference Range Interpretation Comments POC-GLUCOSE METER 221 mg/dL 70-110 H : TESTED A T [facility] 6720 (BEAKER) (test code = [facility], 1538) 89598: Wheat Washer/Techni patricia ID = [id number] for Kenji Felix POCT-GLUCOSE [id number] 17:25:55 Test Item Value Reference Range Interpretation Comments POC-GLUCOSE METER 135 mg/dL 70-110 H : TESTED A T [facility] 6720 (BEAKER) (test code [facility], = 1538) 53447: Wheat Washer/Techni patricia ID = [id number] for Ric rs, Kira POCT-GLUCOSE [id number] 12:25:14 Test Item Value Reference Range Interpretation Comments POC-GLUCOSE METER 276 mg/dL 70-110 H : TESTED A T [facility] 6720 (BEAKER) (test code [facility], = 1538) 01395: Wheat Washer/Techni patricia ID = [id number] for Ric rs, Kira POCT-GLUCOSE [id number] 08:45:06 Test Item Value Reference Range Interpretation Comments POC-GLUCOSE METER 125 mg/dL 70-110 H : TESTED A T [facility] 6720 (BEAKER) (test code [facility], = 1538) 22430: Wheat Washer/Techni patricia ID = [id number] for Kira Longoria XR CHEST 1 VIEW PORTABLE / [id number] 06:55:01 [facility] : 1955 Sex: FXR CHEST 1 VIEW PORTABLE / BEDSIDEINDICATION: s/p ACB surgeryCOMPARISON: Prior day's examTECHNIQUE: Portable frontal view(s) of the chest. FINDINGS: Support Lines and Devices: Stable. Lungs and pleura: Unchanged airspace and pleural opacities. Nopneumothorax identified.Heart and mediastinum: Stable contours. Stable surgical changes.Additional findings: Cervical fusion hardware is identified. The patientis rotated to the right. Scattered atherosclerotic vascularcalcifications.IMPRESSION:1. No significant change from prior exam.2. Scattered linear atelectasis is present.Electronically Signed By: Garret Newell 04/04/2023 06:57 CDTWorkstation Name: [id number] METABOLIC [id number] 05:14:55 Test Item Value Reference Range Interpretation Comments SODIUM (BEAKER) 138 meq/L 136-145 (test code = 381) POTASSIUM 4.1 meq/L 3.5-5.1 (BEAKER) (test code = 379) CHLORIDE (BEAKER) 101 meq/L 98-107 (test code = 382) CO2 (BEAKER) 24 meq/L 22-29 (test code = 355) BLOOD UREA 27 mg/dL 7-21 H NITROGEN (BEAKER) (test code = 354) CREATININE 3.38 mg/dL 0.57-1.25 H (BEAKER) (test code = 358) GLUCOSE RANDOM 120 mg/dL 70-105 H (BEAKER) (test code = 652) CALCIUM (BEAKER) 8.9 mg/dL 8.4-10.2 (test code = 697) EGFR (BEAKER) 14 Interpretatio n of eGFR (test code = mL/min/1.73 values Stage De scription 1092) sq m Result G1 Keiry l or high >=90 G2 Mildly decreased 60-89 G3a Mildl y to moderately 45-5 9 G3b Moderately to s everely 30-44 G4 Severl y decreased 15-29 G5 Kidney failure <15Reported eGF R is based on the CKD-EPI 2020 equation that d oes not use a race coefficientEsti mated GFR is not as accur ate as Creatinine Birdie lillian in predicting glom erular filtration rate . Estimated GFR is not appl icable for dialysis patien ts Wheat Washer ID - [id number] 05:03:01 Test Item Value Reference Range Interpretation Comments PHOSPHORUS (BEAKER) (test code = 3.9 mg/dL 2.3-4.7 604) Wheat Washer ID - [id number] 05:03:00 Test Item Value Reference Range Interpretation Comments MAGNESIUM (BEAKER) (test code = 1.8 mg/dL 1.6-2.6 627) Wheat Washer ID - ADMINB-TYPE NATRIURETIC FACTOR (BNP)2023-04-04 05:00:18 Test Item Value Reference Range Interpretation Comments B-TYPE NATRIURETIC PEPTIDE 3091 pg/mL 0-100 H (BEAKER) (test code = 700) Wheat Washer ID - ADMINOXYGEN SATURATION, [id number] 04:53:14 Test Item Value Reference Range Interpretation Comments O2 SATURATION (MEASURED) (BEAKER) 91.0 % (test code = 1455) [id number] 04:50:38 Test Item Value Reference Range Interpretation Comments PROTIME (BEAKER) (test code = 17.8 seconds 11.9-14.2 H 759) INR (BEAKER) (test code = 370) 1.48 <=5.90 PARTIAL THROMBOPLASTIN TIME 64.1 seconds 22.5-36.0 H (BEAKER) (test code = 760) RECOMMENDED COUMADIN/WARFARIN INR THERAPY RANGESSTANDARD DOSE: 2.0 - 3.0 Includes: PROPHYLAXIS for venous thrombosis, systemic embolization; TREATMENT for venous thrombosis and/or pulmonary embolus.HIGH RISK: Target INR is 2.5-3.5 for patients with mechanical heart valves.CBC W/PLT COUNT & AUTO [id number] 04:44:20 Test Item Value Reference Range Interpretation Comments WHITE BLOOD CELL COUNT (BEAKER) 13.3 K/ L 3.5-10.5 H (test code = 775) RED BLOOD CELL COUNT (BEAKER) 2.84 M/ L 3.93-5.22 L (test code = 761) HEMOGLOBIN (BEAKER) (test code = 8.4 GM/DL 11.2-15.7 L 410) HEMATOCRIT (BEAKER) (test code = 27.4 % 34.1-44.9 L 411) MEAN CORPUSCULAR VOLUME (BEAKER) 97 fL 79-95 H (test code = 753) MEAN CORPUSCULAR HEMOGLOBIN 29.6 pg 25.6-32.2 (BEAKER) (test code = 751) MEAN CORPUSCULAR HEMOGLOBIN CONC 30.7 GM/DL 32.2-35.5 L (BEAKER) (test code = 752) RED CELL DISTRIBUTION WIDTH 16.9 % 11.7-14.4 H (BEAKER) (test code = 412) PLATELET COUNT (BEAKER) (test 153 K/CU MM 150-450 code = 756) MEAN PLATELET VOLUME (BEAKER) 9.5 fL 9.4-12.3 (test code = 754) NUCLEATED RED BLOOD CELLS 0 /100 WBC 0-0 (BEAKER) (test code = 413) NEUTROPHILS RELATIVE PERCENT 90 % (BEAKER) (test code = 429) LYMPHOCYTES RELATIVE PERCENT 2 % (BEAKER) (test code = 430) MONOCYTES RELATIVE PERCENT 5 % (BEAKER) (test code = 431) EOSINOPHILS RELATIVE PERCENT 2 % (BEAKER) (test code = 432) BASOPHILS RELATIVE PERCENT 0 % (BEAKER) (test code = 437) NEUTROPHILS ABSOLUTE COUNT 11.97 K/ L 1.56-6.13 H (BEAKER) (test code = 670) LYMPHOCYTES ABSOLUTE COUNT 0.29 K/ L 1.18-3.74 L (BEAKER) (test code = 414) MONOCYTES ABSOLUTE COUNT (BEAKER) 0.70 K/ L 0.24-0.36 H (test code = 415) EOSINOPHILS ABSOLUTE COUNT 0.22 K/ L 0.04-0.36 (BEAKER) (test code = 416) BASOPHILS ABSOLUTE COUNT (BEAKER) 0.02 K/ L 0.01-0.08 (test code = 417) IMMATURE GRANULOCYTES-RELATIVE 0.50 % 0.00-1.00 PERCENT (BEAKER) (test code = 2801) POCT-GLUCOSE [id number] 21:11:58 Test Item Value Reference Range Interpretation Comments POC-GLUCOSE METER 101 mg/dL 70-110 : TESTED A T [facility] 6720 (BEAKER) (test code = [facility], [facility]8) [address]: Wheat Washer/Techni patricia ID = [id number] for JUSTIN LAGUERRE POCT-GLUCOSE [id number] 18:05:50 Test Item Value Reference Range Interpretation Comments POC-GLUCOSE METER 96 mg/dL 70-110 : TESTED A T [facility] 6720 ([facility]) (test code = [facility], [facility]8) 265[address]: Wheat Washer/Techni patricia ID = [id number] for MARIAH VELOZ POCT-GLUCOSE [id number] 18:05:47 Test Item Value Reference Range Interpretation Comments POC-GLUCOSE METER 117 mg/dL 70-110 H : TESTED A T [facility] 6720 (BEAKER) (test code = [facility], 1538) 42528: Wheat Washer/Techni patricia ID = [id number] for COLLEEN HN, MARIAH POCT-GLUCOSE [id number] 09:13:48 Test Item Value Reference Range Interpretation Comments POC-GLUCOSE METER 134 mg/dL 70-110 H : TESTED A T [facility] 6720 (BEAKER) (test code = [facility], 1538) 90805: Wheat Washer/Techni patricia ID = [id number] for COLLEEN HN, MARIAH XR CHEST 1 VIEW PORTABLE / [id number] 07:19:30 [facility] 1955 Sex: FXR CHEST 1 VIEW PORTABLE / BEDSIDEINDICATION: s/p ACB surgeryCOMPARISON: Prior day's examTECHNIQUE: Portable frontal view(s) of the chest. FINDINGS: Support Lines and Devices: Stable. Lungs and pleura: Unchanged airspace and pleural opacities. Nopneumothorax identified.Heart and mediastinum: Stable contours. Stable surgical changes.Additional findings: Cervical fusion hardware is identified.IMPRESSION:1. No significant change from prior exam.2. Mild interstitial opacities bilaterally, which may representpulmonary edema or viral pneumonia. Electronically Signed By: Garret Morel04/03/2023 07:21 CDTWorkstation Name: [id number] 06:07:29 Test Item Value Reference Range Interpretation Comments POC-GLUCOSE METER 247 mg/dL 70-110 H : TESTED A T [facility] 6720 (BEAKER) (test code [facility], = 1538) 49946: Wheat Washer/Techni patricia ID = [id number] for Kira Longoria POCT-GLUCOSE [id number] 06:06:48 Test Item Value Reference Range Interpretation Comments POC-GLUCOSE METER 228 mg/dL 70-110 H : TESTED A T [facility] 6720 (BEAKER) (test code = SARMAD Barreto [facility], 1538) 87859: Wheat Washer/Techni patricia ID = [id number] for Luke mccarty (contract)[employer] BASIC METABOLIC [id number] 05:38:59 Test Item Value Reference Range Interpretation Comments SODIUM (BEAKER) 135 meq/L 136-145 L (test code = 381) POTASSIUM 4.5 meq/L 3.5-5.1 (BEAKER) (test code = 379) CHLORIDE (BEAKER) 99 meq/L 98-107 (test code = 382) CO2 (BEAKER) 22 meq/L 22-29 (test code = 355) BLOOD UREA 63 mg/dL 7-21 H NITROGEN (BEAKER) (test code = 354) CREATININE 6.26 mg/dL 0.57-1.25 H (BEAKER) (test code = 358) GLUCOSE RANDOM 112 mg/dL 70-105 H (BEAKER) (test code = 652) CALCIUM (BEAKER) 9.0 mg/dL 8.4-10.2 (test code = 697) EGFR (BEAKER) 7 Interpretatio n of eGFR (test code = mL/min/1.73 values Stage De scription 1092) sq m Result G1 Keiry l or high >=90 G2 Mildly decreased 60-89 G3a Mildl y to moderately 45-5 9 G3b Moderately to s everely 30-44 G4 Severl y decreased 15-29 G5 Kidney failure <15Reported eGF R is based on the CKD-EPI 2020 equation that d oes not use a race coefficientEsti mated GFR is not as accur ate as Creatinine Birdie lillian in predicting glom erular filtration rate . Estimated GFR is not appl icable for dialysis patien ts Wheat Washer ID - EOCBC W/PLT COUNT & AUTO [id number] 05:34:10 Test Item Value Reference Range Interpretation Comments WHITE BLOOD CELL COUNT (BEAKER) 9.1 K/ L 3.5-10.5 (test code = 775) RED BLOOD CELL COUNT (BEAKER) 2.78 M/ L 3.93-5.22 L (test code = 761) HEMOGLOBIN (BEAKER) (test code = 8.1 GM/DL 11.2-15.7 L 410) HEMATOCRIT (BEAKER) (test code = 26.9 % 34.1-44.9 L 411) MEAN CORPUSCULAR VOLUME (BEAKER) 97 fL 79-95 H (test code = 753) MEAN CORPUSCULAR HEMOGLOBIN 29.1 pg 25.6-32.2 (BEAKER) (test code = 751) MEAN CORPUSCULAR HEMOGLOBIN CONC 30.1 GM/DL 32.2-35.5 L (BEAKER) (test code = 752) RED CELL DISTRIBUTION WIDTH 16.7 % 11.7-14.4 H (BEAKER) (test code = 412) PLATELET COUNT (BEAKER) (test 142 K/CU MM 150-450 L code = 756) MEAN PLATELET VOLUME (BEAKER) 9.5 fL 9.4-12.3 (test code = 754) NUCLEATED RED BLOOD CELLS 0 /100 WBC 0-0 (BEAKER) (test code = 413) NEUTROPHILS RELATIVE PERCENT 83 % (BEAKER) (test code = 429) LYMPHOCYTES RELATIVE PERCENT 6 % (BEAKER) (test code = 430) MONOCYTES RELATIVE PERCENT 6 % (BEAKER) (test code = 431) EOSINOPHILS RELATIVE PERCENT 4 % (BEAKER) (test code = 432) BASOPHILS RELATIVE PERCENT 0 % (BEAKER) (test code = 437) NEUTROPHILS ABSOLUTE COUNT 7.55 K/ L 1.56-6.13 H (BEAKER) (test code = 670) LYMPHOCYTES ABSOLUTE COUNT 0.55 K/ L 1.18-3.74 L (BEAKER) (test code = 414) MONOCYTES ABSOLUTE COUNT (BEAKER) 0.57 K/ L 0.24-0.36 H (test code = 415) EOSINOPHILS ABSOLUTE COUNT 0.33 K/ L 0.04-0.36 (BEAKER) (test code = 416) BASOPHILS ABSOLUTE COUNT (BEAKER) 0.02 K/ L 0.01-0.08 (test code = 417) IMMATURE GRANULOCYTES-RELATIVE 0.60 % 0.00-1.00 PERCENT (BEAKER) (test code = 2801) [id number] 05:26:01 Test Item Value Reference Range Interpretation Comments MAGNESIUM (BEAKER) (test code = 1.7 mg/dL 1.6-2.6 627) Wheat Washer ID - [id number] 05:26:01 Test Item Value Reference Range Interpretation Comments PHOSPHORUS (BEAKER) (test code = 5.1 mg/dL 2.3-4.7 H 604) Wheat Washer ID - [id number] 05:09:39 Test Item Value Reference Range Interpretation Comments PROTIME (BEAKER) (test code = 15.8 seconds 11.9-14.2 H 759) INR (BEAKER) (test code = 370) 1.27 <=5.90 PARTIAL THROMBOPLASTIN TIME 42.1 seconds 22.5-36.0 H (BEAKER) (test code = 760) RECOMMENDED COUMADIN/WARFARIN INR THERAPY RANGESSTANDARD DOSE: 2.0 - 3.0 Includes: PROPHYLAXIS for venous thrombosis, systemic embolization; TREATMENT for venous thrombosis and/or pulmonary embolus.HIGH RISK: Target INR is 2.5-3.5 for patients with mechanical heart valves.OXYGEN SATURATION, [id number] 05:02:16 Test Item Value Reference Range Interpretation Comments O2 SATURATION (MEASURED) (TRAN) 79.5 % (test code = 1455) XR CHEST 1 VIEW PORTABLE / [id number] 23:54:34 [facility] : 1955 Sex: FEXAMINATION: XR CHEST 1 VIEW PORTABLE / BEDSIDE INDICATION: s/p ACB surgeryCOMPARISON: CXR of the prior day FINDINGS:LINES/TUBES: Right IJ tunneled thousand catheter unchanged. LUNGS: Stable lung volumes, central pulmonary vascular congestion, andmild bilateral diffuse hazy opacities. No new airspace consolidation.PLEURA: No pleural effusion or pneumothorax.MEDIASTINUM: The cardiomediastinal silhouette is stable in size andshape. Atherosclerotic calcifications of the thoracic aorta.BONES/SOFT TISSUES: No acute osseous injury. Sternotomy wires unchanged.Unchanged cervical spine fusion hardware.ABDOMEN: Nofree air under the diaphragm.IMPRESSION:No significant interval change.Electronically Signed By: Amadou Cee04/02/2023 23:56 CDTWorkstation Name: [id number] [id number] 2023-04-02 21:27:40 Test Item Value Reference Range Interpretation Comments POC-GLUCOSE METER 93 mg/dL 70-110 : TESTED A T [facility] 6720 (BEAKER) (test code = [facility] UMANZ[facility] [place], 1538) 88889: Wheat Washer/Techni patricia ID = [id number] for SAVANNA KRYSTA KLARISSA POCT-GLUCOSE [id number] 18:32:05 Test Item Value Reference Range Interpretation Comments POC-GLUCOSE METER 273 mg/dL 70-110 H : TESTED A T [facility] 6720 ([place]) (test code = [facility] Estevan [facility], 153) 67156: Wheat Washer/Techni patricia ID = [id number] for COLLEEN HN, MARIAH BUN AND CREATININE [id number] 12:51:19 Test Item Value Reference Range Interpretation Comments BLOOD UREA 54 mg/dL 7-21 H NITROGEN (BEAKER) (test code = 354) CREATININE 5.73 mg/dL 0.57-1.25 H (BEAKER) (test code = 358) BUN/CREAT RATIO 9 For a normal individual on ([place]) (test a normal diet , the code = reference inter nahum for the [id number]) mass ratio rang es between 12:1 and 20:1 ( BUN in mg/dL/creatinin e in mg/dL) EGFR (AdenyoAKER) 8 Interpretatio n of eGFR (test code = mL/min/1.73 values Stage De scription 1092) sq m Result G1 Keiry l or high >=90 G2 Mildly decreased 60-89 G3a Mildl y to moderately 45-5 9 G3b Moderately to s everely 30-44 G4 Severl y decreased 15-29 G5 Kidney failure <15Reported eGF R is based on the CKD-EPI 2020 equation that d oes not use a race coefficientEsti mated GFR is not as accur ate as Creatinine Birdie lillian in predicting glom erular filtration rate . Estimated GFR is not appl icable for dialysis patien ts POCT-GLUCOSE [id number] 12:20:54 Test Item Value Reference Range Interpretation Comments POC-GLUCOSE METER 265 mg/dL 70-110 H : TESTED A T [facility] 6720 ([place]) (test code = [facility] [place] [facility], 1538) 80871: Wheat Washer/Techni patricia ID = [id number] for COLLEEN HN, MARIAH POCT-GLUCOSE [id number] 12:20:52 Test Item Value Reference Range Interpretation Comments POC-GLUCOSE METER 126 mg/dL 70-110 H : TESTED A T [facility] 6720 ([place]) (test code = [facility] [employer] [facility], 1538) 67482: Wheat Washer/Techni patricia ID = [id number] for MARIAH CALDERON POCT-GLUCOSE [id number] 06:56:10 Test Item Value Reference Range Interpretation Comments POC-GLUCOSE METER 167 mg/dL 70-110 H : TESTED A T [facility] 6720 (BEAKER) (test code TARAN [facility], = 1538) 93096: Wheat Washer/Techni patricia ID = [id number] for Kira Longoria [id number] 06:03:17 Test Item Value Reference Range Interpretation Comments FERRITIN (BEAKER) (test code = 1454.96 ng/mL 5.00-275.00 H 361) Wheat Washer ID - BSIRON, TIBC, % SAT. (WITHOUT FERRITIN)2023-04-02 05:41:53 Test Item Value Reference Range Interpretation Comments IRON (BEAKER) (test code = 547) 32.0 ug/dL 40.0-160.0 L TOTAL IRON BINDING CAPACITY 208 ug/dL 250-450 L (BEAKER) (test code = 769) IRON % SATURATION (2) (BEAKER) 15 % 20-55 L (test code = 2590) Wheat Washer ID - BSBASIC METABOLIC [id number] 05:25:25 Test Item Value Reference Range Interpretation Comments SODIUM (BEAKER) 138 meq/L 136-145 (test code = 381) POTASSIUM 4.5 meq/L 3.5-5.1 (BEAKER) (test code = 379) CHLORIDE (BEAKER) 101 meq/L 98-107 (test code = 382) CO2 (BEAKER) 23 meq/L 22-29 (test code = 355) BLOOD UREA 51 mg/dL 7-21 H NITROGEN (BEAKER) (test code = 354) CREATININE 5.54 mg/dL 0.57-1.25 H (BEAKER) (test code = 358) GLUCOSE RANDOM 208 mg/dL 70-105 H (BEAKER) (test code = 652) CALCIUM (BEAKER) 9.5 mg/dL 8.4-10.2 (test code = 697) EGFR (BEAKER) 8 Interpretatio n of eGFR (test code = mL/min/1.73 values Stage De scription 1092) sq m Result G1 Keiry l or high >=90 G2 Mildly decreased 60-89 G3a Mildl y to moderately 45-5 9 G3b Moderately to s everely 30-44 G4 Severl y decreased 15-29 G5 Kidney failure <15Reported eGF R is based on the CKD-EPI 202 equation that d oes not use a race coefficientEsti mated GFR is not as accur ate as Creatinine Birdie snyder in predicting glom erular filtration rate . Estimated GFR is not appl icable for dialysis patien ts Wheat Washer ID - [id number] 05:23:24 Test Item Value Reference Range Interpretation Comments PHOSPHORUS (BEAKER) (test code = 4.8 mg/dL 2.3-4.7 H 604) Wheat Washer ID - [id number] 05:23:23 Test Item Value Reference Range Interpretation Comments MAGNESIUM (BEAKER) (test code = 1.7 mg/dL 1.6-2.6 627) Wheat Washer ID - BSVANCOMYCIN LEVEL, [id number] 05:17:20 Test Item Value Reference Range Interpretation Comments VANCOMYCIN RANDOM (BEAKER) (test 17.4 ug/mL code = 523) Reference Range: No NormalsOperator ID - ADMINCBC W/PLT COUNT & AUTO [id number] 05:08:53 Test Item Value Reference Range Interpretation Comments WHITE BLOOD CELL COUNT (BEAKER) 9.3 K/ L 3.5-10.5 (test code = 775) RED BLOOD CELL COUNT (BEAKER) 2.75 M/ L 3.93-5.22 L (test code = 761) HEMOGLOBIN (BEAKER) (test code = 8.1 GM/DL 11.2-15.7 L 410) HEMATOCRIT (BEAKER) (test code = 26.8 % 34.1-44.9 L 411) MEAN CORPUSCULAR VOLUME (BEAKER) 98 fL 79-95 H (test code = 753) MEAN CORPUSCULAR HEMOGLOBIN 29.5 pg 25.6-32.2 (BEAKER) (test code = 751) MEAN CORPUSCULAR HEMOGLOBIN CONC 30.2 GM/DL 32.2-35.5 L (BEAKER) (test code = 752) RED CELL DISTRIBUTION WIDTH 17.0 % 11.7-14.4 H (BEAKER) (test code = 412) PLATELET COUNT (BEAKER) (test 146 K/CU MM 150-450 L code = 756) MEAN PLATELET VOLUME (BEAKER) 9.6 fL 9.4-12.3 (test code = 754) NUCLEATED RED BLOOD CELLS 0 /100 WBC 0-0 (BEAKER) (test code = 413) NEUTROPHILS RELATIVE PERCENT 83 % (BEAKER) (test code = 429) LYMPHOCYTES RELATIVE PERCENT 7 % (BEAKER) (test code = 430) MONOCYTES RELATIVE PERCENT 6 % (BEAKER) (test code = 431) EOSINOPHILS RELATIVE PERCENT 3 % (BEAKER) (test code = 432) BASOPHILS RELATIVE PERCENT 0 % (BEAKER) (test code = 437) NEUTROPHILS ABSOLUTE COUNT 7.71 K/ L 1.56-6.13 H (BEAKER) (test code = 670) LYMPHOCYTES ABSOLUTE COUNT 0.62 K/ L 1.18-3.74 L (BEAKER) (test code = 414) MONOCYTES ABSOLUTE COUNT (BEAKER) 0.59 K/ L 0.24-0.36 H (test code = 415) EOSINOPHILS ABSOLUTE COUNT 0.32 K/ L 0.04-0.36 (BEAKER) (test code = 416) BASOPHILS ABSOLUTE COUNT (BEAKER) 0.02 K/ L 0.01-0.08 (test code = 417) IMMATURE GRANULOCYTES-RELATIVE 0.40 % 0.00-1.00 PERCENT (BEAKER) (test code = 2801) OXYGEN SATURATION, [id number] 04:56:33 Test Item Value Reference Range Interpretation Comments O2 SATURATION (MEASURED) (BEAKER) 92.0 % (test code = 1455) [id number] 04:53:50 Test Item Value Reference Range Interpretation Comments PROTIME (BEAKER) (test code = 15.2 seconds 11.9-14.2 H 759) INR (BEAKER) (test code = 370) 1.20 <=5.90 PARTIAL THROMBOPLASTIN TIME 39.0 seconds 22.5-36.0 H (BEAKER) (test code = 760) RECOMMENDED COUMADIN/WARFARIN INR THERAPY RANGESSTANDARD DOSE: 2.0 - 3.0 Includes: PROPHYLAXIS for venous thrombosis, systemic embolization; TREATMENT for venous thrombosis and/or pulmonary embolus.HIGH RISK: Target INR is 2.5-3.5 for patients with mechanical heart valves.POCT-GLUCOSE [id number] 23:02:53 Test Item Value Reference Range Interpretation Comments POC-GLUCOSE METER 174 mg/dL 70-110 H : TESTED A T [facility] 6720 (BEAKER) (test code = SARMAD Barreto [facility], 1538) 45272: Wheat Washer/Techni patricia ID = [id number] for Julia Gibbs POCT-GLUCOSE [id number] 17:42:46 Test Item Value Reference Range Interpretation Comments POC-GLUCOSE METER 247 mg/dL 70-110 H : TESTED A T [facility] 6720 (BEAKER) (test [facility], = 1538) 89478: Wheat Washer/Techni patricia ID = [id number] for Kira Longoria POCT-GLUCOSE [id number] 12:53:12 Test Item Value Reference Range Interpretation Comments POC-GLUCOSE METER 253 mg/dL 70-110 H : TESTED A T [facility] 6720 (BEAKER) (test code [facility], = 1538) 65705: Wheat Washer/Techni patricia ID = [id number] for Kira Longoria XR CHEST 1 VIEW PORTABLE / [id number] 10:34:07 [facility] 1955 Sex: FCHEST, 1 VIEW.HISTORY: s/p ACB surgeryCOMPARISON: 03/31/2023.IMPRESSION:Right IJ tunneled dialysis catheteridentified in stable position.Postsurgical changes from median sternotomy again noted. There is mildleft basilar atelectasis. There is no evidence for newlarge focal consolidation, pneumothorax, or significant volume pleuraleffusion.The cardiomediastinal silhouette is stable in appearance. Partiallyvisualized cervical fusion hardware noted. No acute osseous abnormalityis identified.Electronically Signed By: Kd Richards MD04/01/2023 10:36 CDTWorkstation Name: [id number] 07:44:39 Test Item Value Reference Range Interpretation Comments POC-GLUCOSE METER 203 mg/dL 70-110 H : [facility] (BEAKER) (test code [facility], = 1538) 72175: Wheat Washer/Techni patricia ID = [id number] for Kira Longoria BASIC METABOLIC [id number] 06:36:23 Test Item Value Reference Range Interpretation Comments SODIUM (BEAKER) 134 meq/L 136-145 L (test code = 381) POTASSIUM 4.1 meq/L 3.5-5.1 (BEAKER) (test code = 379) CHLORIDE (BEAKER) 99 meq/L 98-107 (test code = 382) CO2 (BEAKER) 23 meq/L 22-29 (test code = 355) BLOOD UREA 33 mg/dL 7-21 H NITROGEN (BEAKER) (test code = 354) CREATININE 3.99 mg/dL 0.57-1.25 H (BEAKER) (test code = 358) GLUCOSE RANDOM 173 mg/dL 70-105 H (BEAKER) (test code = 652) CALCIUM (BEAKER) 9.2 mg/dL 8.4-10.2 (test code = 697) EGFR (BEAKER) 12 Interpretatio n of eGFR (test code = mL/min/1.73 values Stage De scription 1092) sq m Result G1 Keiry l or high >=90 G2 Mildly decreased 60-89 G3a Mildl y to moderately 45-5 9 G3b Moderately to s everely 30-44 G4 Severl y decreased 15-29 G5 Kidney failure <15Reported eGF R is based on the CKD-EPI 2020 equation that d oes not use a race coefficientEsti mated GFR is not as accur ate as Creatinine Birdie lillian in predicting glom erular filtration rate . Estimated GFR is not appl icable for dialysis patien ts Wheat Washer ID - [id number] 06:36:15 Test Item Value Reference Range Interpretation Comments PHOSPHORUS (BEAKER) (test code = 3.9 mg/dL 2.3-4.7 604) Wheat Washer ID - [id number] 06:36:14 Test Item Value Reference Range Interpretation Comments MAGNESIUM (BEAKER) (test code = 1.7 mg/dL 1.6-2.6 627) Wheat Washer ID - BSCBC W/PLT COUNT & AUTO [id number] 06:23:52 Test Item Value Reference Range Interpretation Comments WHITE BLOOD CELL COUNT 8.7 K/ L 3.5-10.5 (BEAKER) (test code = 775) RED BLOOD CELL COUNT 2.67 M/ L 3.93-5.22 L (BEAKER) (test code = 761) HEMOGLOBIN (BEAKER) 7.8 GM/DL 11.2-15.7 L (test code = 410) HEMATOCRIT (BEAKER) 26.2 % 34.1-44.9 L (test code = 411) MEAN CORPUSCULAR 98 fL 79-95 H Discordant MCV VOLUME (BEAKER) (test result s compared to code = 753) previous result s; clinical correl ation required. MEAN CORPUSCULAR 29.2 pg 25.6-32.2 HEMOGLOBIN (BEAKER) (test code = 751) MEAN CORPUSCULAR 29.8 GM/DL 32.2-35.5 L HEMOGLOBIN CONC (BEAKER) (test code = 752) RED CELL DISTRIBUTION 17.3 % 11.7-14.4 H WIDTH (BEAKER) (test code = 412) PLATELET COUNT 129 K/CU MM 150-450 L (BEAKER) (test code = 756) MEAN PLATELET VOLUME 9.8 fL 9.4-12.3 (BEAKER) (test code = 754) NUCLEATED RED BLOOD 0 /100 WBC 0-0 CELLS (BEAKER) (test code = 413) NEUTROPHILS RELATIVE 80 % PERCENT (BEAKER) (test code = 429) LYMPHOCYTES RELATIVE 9 % PERCENT (BEAKER) (test code = 430) MONOCYTES RELATIVE 7 % PERCENT (BEAKER) (test code = 431) EOSINOPHILS RELATIVE 3 % PERCENT (BEAKER) (test code = 432) BASOPHILS RELATIVE 0 % PERCENT (BEAKER) (test code = 437) NEUTROPHILS ABSOLUTE 6.95 K/ L 1.56-6.13 H COUNT (BEAKER) (test code = 670) LYMPHOCYTES ABSOLUTE 0.75 K/ L 1.18-3.74 L COUNT (BEAKER) (test code = 414) MONOCYTES ABSOLUTE 0.63 K/ L 0.24-0.36 H COUNT (BEAKER) (test code = 415) EOSINOPHILS ABSOLUTE 0.28 K/ L 0.04-0.36 COUNT (BEAKER) (test code = 416) BASOPHILS ABSOLUTE 0.03 K/ L 0.01-0.08 COUNT (BEAKER) (test code = 417) IMMATURE 0.50 % 0.00-1.00 GRANULOCYTES-RELATIVE PERCENT (BEAKER) (test code = 2801) [id number] 06:09:26 Test Item Value Reference Range Interpretation Comments PROTIME (BEAKER) (test code = 15.2 seconds 11.9-14.2 H 759) INR (BEAKER) (test code = 370) 1.20 <=5.90 PARTIAL THROMBOPLASTIN TIME 39.3 seconds 22.5-36.0 H (BEAKER) (test code = 760) RECOMMENDED COUMADIN/WARFARIN INR THERAPY RANGESSTANDARD DOSE: 2.0 - 3.0 Includes: PROPHYLAXIS for venous thrombosis, systemic embolization; TREATMENT for venous thrombosis and/or pulmonary embolus.HIGH RISK: Target INR is 2.5-3.5 for patients with mechanical heart valves.OXYGEN SATURATION, [id number] 05:27:51 Test Item Value Reference Range Interpretation Comments O2 SATURATION (MEASURED) (BEAKER) 88.1 % (test code = 1455) POCT-GLUCOSE [id number] 20:43:26 Test Item Value Reference Range Interpretation Comments POC-GLUCOSE METER 179 mg/dL 70-110 H : TESTED A T [facility] 6720 (BEAKER) (test code = [facility] [place] [facility], 1538) 52631: Wheat Washer/Techni patricia ID = [id number] for KLARISSA DICKEY POCT-GLUCOSE [id number] 12:20:48 Test Item Value Reference Range Interpretation Comments POC-GLUCOSE METER 298 mg/dL 70-110 H : TESTED A T [facility] 6720 (BEAKER) (test code [facility], = 1538) 88465: Wheat Washer/Techni patricia ID = [id number] for Kira Longoria XR CHEST 1 VIEW PORTABLE / [id number] 12:20:02 [facility] 1955 Sex: FEXAMINATION: XR CHEST 1 VIEW PORTABLE / BEDSIDE INDICATION: s/p ACB surgeryCOMPARISON: CXR of the prior day FINDINGS:LINES/TUBES: Support lines and tubes unchanged. LUNGS: The lungs are well inflated. Mild bilateral pulmonary edema andretrocardiac atelectasis.PLEURA: No pleural effusion or pneumothorax.MEDIASTINUM: The cardiomediastinal silhouette appears normal in size andshape.BONES/SOFT TISSUES: No acute osseous injury.ABDOMEN: No free air under the diaphragm.IMPRESSION:No significant interval change.Electronically Signed By: Odalis Kirkland03/31/2023 12:22 CDTWorkstation Name: [id number] METABOLIC [id number] 05:28:33 Test Item Value Reference Range Interpretation Comments SODIUM (BEAKER) 137 meq/L 136-145 (test code = 381) POTASSIUM 3.5 meq/L 3.5-5.1 (BEAKER) (test code = 379) CHLORIDE (BEAKER) 99 meq/L 98-107 (test code = 382) CO2 (BEAKER) 28 meq/L 22-29 (test code = 355) BLOOD UREA 17 mg/dL 7-21 NITROGEN (BEAKER) (test code = 354) CREATININE 2.61 mg/dL 0.57-1.25 H (BEAKER) (test code = 358) GLUCOSE RANDOM 164 mg/dL 70-105 H (BEAKER) (test code = 652) CALCIUM (BEAKER) 9.4 mg/dL 8.4-10.2 (test code = 697) EGFR (BEAKER) 20 Interpretatio n of eGFR (test code = mL/min/1.73 values Stage De scription 1092) sq m Result G1 Keiry l or high >=90 G2 Mildly decreased 60-89 G3a Mildl y to moderately 45-5 9 G3b Moderately to s everely 30-44 G4 Severl y decreased 15-29 G5 Kidney failure <15Reported eGF R is based on the CKD-EPI 2020 equation that d oes not use a race coefficientEsti mated GFR is not as accur ate as Creatinine Birdie lillian in predicting glom erular filtration rate . Estimated GFR is not appl icable for dialysis patien ts Wheat Washer ID - [id number] 05:07:39 Test Item Value Reference Range Interpretation Comments PHOSPHORUS (BEAKER) (test code = 2.3 mg/dL 2.3-4.7 604) Wheat Washer ID - [id number] 05:07:38 Test Item Value Reference Range Interpretation Comments MAGNESIUM (BEAKER) (test code = 1.7 mg/dL 1.6-2.6 627) Wheat Washer ID - BSOXYGEN SATURATION, [id number] 04:55:11 Test Item Value Reference Range Interpretation Comments O2 SATURATION (MEASURED) (BEAKER) 87.8 % (test code = 1455) [id number] 04:49:30 Test Item Value Reference Range Interpretation Comments PROTIME (BEAKER) (test code = 15.0 seconds 11.9-14.2 H 759) INR (BEAKER) (test code = 370) 1.18 <=5.90 PARTIAL THROMBOPLASTIN TIME 39.3 seconds 22.5-36.0 H (BEAKER) (test code = 760) RECOMMENDED COUMADIN/WARFARIN INR THERAPY RANGESSTANDARD DOSE: 2.0 - 3.0 Includes: PROPHYLAXIS for venous thrombosis, systemic embolization; TREATMENT for venous thrombosis and/or pulmonary embolus.HIGH RISK: Target INR is 2.5-3.5 for patients with mechanical heart valves.CBC W/PLT COUNT & AUTO [id number] 04:42:55 Test Item Value Reference Range Interpretation Comments WHITE BLOOD CELL COUNT (BEAKER) 9.3 K/ L 3.5-10.5 (test code = 775) RED BLOOD CELL COUNT (BEAKER) 3.04 M/ L 3.93-5.22 L (test code = 761) HEMOGLOBIN (BEAKER) (test code = 8.8 GM/DL 11.2-15.7 L 410) HEMATOCRIT (BEAKER) (test code = 28.6 % 34.1-44.9 L 411) MEAN CORPUSCULAR VOLUME (BEAKER) 94 fL 79-95 (test code = 753) MEAN CORPUSCULAR HEMOGLOBIN 28.9 pg 25.6-32.2 (BEAKER) (test code = 751) MEAN CORPUSCULAR HEMOGLOBIN CONC 30.8 GM/DL 32.2-35.5 L (BEAKER) (test code = 752) RED CELL DISTRIBUTION WIDTH 17.4 % 11.7-14.4 H (BEAKER) (test code = 412) PLATELET COUNT (BEAKER) (test 145 K/CU MM 150-450 L code = 756) MEAN PLATELET VOLUME (BEAKER) 9.3 fL 9.4-12.3 L (test code = 754) NUCLEATED RED BLOOD CELLS 0 /100 WBC 0-0 (BEAKER) (test code = 413) NEUTROPHILS RELATIVE PERCENT 84 % (BEAKER) (test code = 429) LYMPHOCYTES RELATIVE PERCENT 6 % (BEAKER) (test code = 430) MONOCYTES RELATIVE PERCENT 8 % (BEAKER) (test code = 431) EOSINOPHILS RELATIVE PERCENT 3 % (BEAKER) (test code = 432) BASOPHILS RELATIVE PERCENT 0 % (BEAKER) (test code = 437) NEUTROPHILS ABSOLUTE COUNT 7.76 K/ L 1.56-6.13 H (BEAKER) (test code = 670) LYMPHOCYTES ABSOLUTE COUNT 0.52 K/ L 1.18-3.74 L (BEAKER) (test code = 414) MONOCYTES ABSOLUTE COUNT (BEAKER) 0.70 K/ L 0.24-0.36 H (test code = 415) EOSINOPHILS ABSOLUTE COUNT 0.26 K/ L 0.04-0.36 (BEAKER) (test code = 416) BASOPHILS ABSOLUTE COUNT (BEAKER) 0.02 K/ L 0.01-0.08 (test code = 417) IMMATURE GRANULOCYTES-RELATIVE 0.40 % 0.00-1.00 PERCENT (BEAKER) (test code = 2809) POCT-GLUCOSE [id number] 21:51:20 Test Item Value Reference Range Interpretation Comments POC-GLUCOSE METER 136 mg/dL 70-110 H : TESTED A T [facility] 6720 (BEAKER) (test code = [facility], 1538) 92203: Wheat Washer/Techni patricia ID = [id number] for MELONY WETZEL POCT-GLUCOSE [id number] 17:36:25 Test Item Value Reference Range Interpretation Comments POC-GLUCOSE METER 158 mg/dL 70-110 H : TESTED A T [facility] 6720 (BEAKER) (test code [facility], = 1538) 96175: Wheat Washer/Techni patricia ID = [id number] for Ric rs, Kira POCT-GLUCOSE [id number] 13:58:12 Test Item Value Reference Range Interpretation Comments POC-GLUCOSE METER 157 mg/dL 70-110 H : TESTED A T [facility] 6720 (BEAKER) (test code [facility], = 1538) 06568: Wheat Washer/Techni patricia ID = [id number] for Ric rs, Kira POCT-GLUCOSE [id number] 13:57:08 Test Item Value Reference Range Interpretation Comments POC-GLUCOSE METER 261 mg/dL 70-110 H : TESTED A T [facility] 6720 (BEAKER) (test code = [facility], 1538) 58327: Wheat Washer/Techni patricia ID = [id number] for Dmitry mez, Isela POCT-GLUCOSE [id number] 13:57:07 Test Item Value Reference Range Interpretation Comments POC-GLUCOSE METER 136 mg/dL 70-110 H : TESTED A T [facility] 6720 (BEAKER) (test code = [facility], 1538) 53928: Wheat Washer/Techni patricia ID = [id number] for Luke mccarty (contract)Flaco XR CHEST 1 VIEW PORTABLE / [id number] 07:22:39 [facility] 1955 Sex: FEXAM:XR CHEST 1 VIEWDATE: 03/30/2023 5:18 AM INDICATION: s/p ACB surgeryCOMPARISON: Chest x-ray 03/29/2023TECHNIQUE: AP chest.FINDINGS/IMPRESSION:Lines, tubes and hardware: Interval removal of left IJ centralvenouscatheter.Lungs and pleura: Low lung volumes with Interval increase in bilateralinterstitial opacities. The costophrenic sulci are sharp withouteffusion. No evidence of pneumothoraxHeart and mediastinum: The heart size is normal. The mediastinalcontours are normal. Bones and soft tissues: No acute abnormality.Electronically Signed By: Oleksandr Benedict03/30/2023 07:24 CDTWorkstation Name: [id number] METABOLIC PANEL 2023-03-30 07:18:59 Test Item Value Reference Range Interpretation Comments SODIUM (BEAKER) 138 meq/L 136-145 (test code = 381) POTASSIUM 3.9 meq/L 3.5-5.1 (BEAKER) (test code = 379) CHLORIDE (BEAKER) 102 meq/L 98-107 (test code = 382) CO2 (BEAKER) 23 meq/L 22-29 (test code = 355) BLOOD UREA 36 mg/dL 7-21 H NITROGEN (BEAKER) (test code = 354) CREATININE 4.66 mg/dL 0.57-1.25 H (BEAKER) (test code = 358) GLUCOSE RANDOM 163 mg/dL 70-105 H (BEAKER) (test code = 652) CALCIUM (BEAKER) 9.5 mg/dL 8.4-10.2 (test code = 697) EGFR (BEAKER) 10 Interpretatio n of eGFR (test code = mL/min/1.73 values Stage De scription 1092) sq m Result G1 Keiry l or high >=90 G2 Mildly decreased 60-89 G3a Mildl y to moderately 45-5 9 G3b Moderately to s everely 30-44 G4 Sever ly decreased 15-29 G5 Kidney failure <15Repo rted eGFR is based on the CKD-EPI 2020 equation t hat does not use a race coefficientEsti mated GFR is not as accur ate as Creatinine Birdie snyder in predicting glom erular filtration rate . Estimated GFR is not appl icable for dialysis patien ts Wheat Washer ID - [id number] 07:18:35 Test Item Value Reference Range Interpretation Comments MAGNESIUM (BEAKER) (test code = 1.8 mg/dL 1.6-2.6 627) Wheat Washer ID - [id number] 07:18:35 Test Item Value Reference Range Interpretation Comments PHOSPHORUS (BEAKER) (test code = 4.3 mg/dL 2.3-4.7 604) Wheat Washer ID - [id number] 06:56:11 Test Item Value Reference Range Interpretation Comments PROTIME (BEAKER) (test code = 14.3 seconds 11.9-14.2 H 759) INR (BEAKER) (test code = 370) 1.18 <=5.90 PARTIAL THROMBOPLASTIN TIME 37.9 seconds 22.5-36.0 H (BEAKER) (test code = 760) RECOMMENDED COUMADIN/WARFARIN INR THERAPY RANGESSTANDARD DOSE: 2.0 - 3.0 Includes: PROPHYLAXIS for venous thrombosis, systemic embolization; TREATMENT for venous thrombosis and/or pulmonary embolus.HIGH RISK: Target INR is 2.5-3.5 for patients with mechanical heart valves.CBC W/PLT COUNT & AUTO [id number] 06:54:13 Test Item Value Reference Range Interpretation Comments WHITE BLOOD CELL COUNT (BEAKER) 9.3 K/ L 3.5-10.5 (test code = 775) RED BLOOD CELL COUNT (BEAKER) 2.98 M/ L 3.93-5.22 L (test code = 761) HEMOGLOBIN (BEAKER) (test code = 8.7 GM/DL 11.2-15.7 L 410) HEMATOCRIT (BEAKER) (test code = 28.6 % 34.1-44.9 L 411) MEAN CORPUSCULAR VOLUME (BEAKER) 96 fL 79-95 H (test code = 753) MEAN CORPUSCULAR HEMOGLOBIN 29.2 pg 25.6-32.2 (BEAKER) (test code = 751) MEAN CORPUSCULAR HEMOGLOBIN CONC 30.4 GM/DL 32.2-35.5 L (BEAKER) (test code = 752) RED CELL DISTRIBUTION WIDTH 17.4 % 11.7-14.4 H (BEAKER) (test code = 412) PLATELET COUNT (BEAKER) (test 148 K/CU MM 150-450 L code = 756) MEAN PLATELET VOLUME (BEAKER) 9.4 fL 9.4-12.3 (test code = 754) NUCLEATED RED BLOOD CELLS 0 /100 WBC 0-0 (BEAKER) (test code = 413) NEUTROPHILS RELATIVE PERCENT 84 % (BEAKER) (test code = 429) LYMPHOCYTES RELATIVE PERCENT 6 % (BEAKER) (test code = 430) MONOCYTES RELATIVE PERCENT 6 % (BEAKER) (test code = 431) EOSINOPHILS RELATIVE PERCENT 3 % (BEAKER) (test code = 432) BASOPHILS RELATIVE PERCENT 0 % (BEAKER) (test code = 437) NEUTROPHILS ABSOLUTE COUNT 7.84 K/ L 1.56-6.13 H (BEAKER) (test code = 670) LYMPHOCYTES ABSOLUTE COUNT 0.54 K/ L 1.18-3.74 L (BEAKER) (test code = 414) MONOCYTES ABSOLUTE COUNT (BEAKER) 0.58 K/ L 0.24-0.36 H (test code = 415) EOSINOPHILS ABSOLUTE COUNT 0.30 K/ L 0.04-0.36 (BEAKER) (test code = 416) BASOPHILS ABSOLUTE COUNT (BEAKER) 0.01 K/ L 0.01-0.08 (test code = 417) IMMATURE GRANULOCYTES-RELATIVE 0.40 % 0.00-1.00 PERCENT (BEAKER) (test code = 2801) OXYGEN SATURATION, [id number] 06:31:46 Test Item Value Reference Range Interpretation Comments O2 SATURATION (MEASURED) (BEAKER) 77.7 % (test code = 1455) POCT-GLUCOSE [id number] 06:26:00 Test Item Value Reference Range Interpretation Comments POC-GLUCOSE METER 182 mg/dL 70-110 H : TESTED Malena T [facility] 6720 (BEAKER) (test code = [facility] [place], 1538) [address]: Wheat Washer/Techni patricia ID = [id number] for Renetta graemeProsper layne POCT-GLUCOSE [id number] 01:14:34 Test Item Value Reference Range Interpretation Comments POC-GLUCOSE METER 165 mg/dL 70-110 H : TESTED A T [facility] 6720 (BEAKER) (test code = [facility] Barre[facility], 1538) 84527: Wheat Washer/Techni patricia ID = [id number] for October POCT-GLUCOSE [id number] 00:00:21 Test Item Value Reference Range Interpretation Comments POC-GLUCOSE METER 142 mg/dL 70-110 H : TESTED A T [facility] 6720 (BEAKER) (test code = [facility], 1538) 53441: Wheat Washer/Techni patricia ID = [id number] for October COMPREHENSIVE METABOLIC [id number] 22:40:52 Test Item Value Reference Range Interpretation Comments TOTAL PROTEIN 6.4 gm/dL 6.0-8.3 (BEAKER) (test code = 770) ALBUMIN (BEAKER) 3.4 g/dL 3.5-5.0 L (test code = 1145) ALKALINE 96 U/L 40-150 PHOSPHATASE (BEAKER) (test code = 346) BILIRUBIN TOTAL 0.5 mg/dL 0.2-1.2 (BEAKER) (test code = 377) SODIUM (BEAKER) 138 meq/L 136-145 (test code = 381) POTASSIUM (BEAKER) 3.7 meq/L 3.5-5.1 (test code = 379) CHLORIDE (BEAKER) 103 meq/L 98-107 (test code = 382) CO2 (BEAKER) (test 21 meq/L 22-29 L code = 355) BLOOD UREA 31 mg/dL 7-21 H NITROGEN (BEAKER) (test code = 354) CREATININE 4.19 mg/dL 0.57-1.25 H (BEAKER) (test code = 358) GLUCOSE RANDOM 65 mg/dL 70-105 L (BEAKER) (test code = 652) CALCIUM (BEAKER) 9.4 mg/dL 8.4-10.2 (test code = 697) AST (SGOT) 10 U/L 5-34 (BEAKER) (test code = 353) ALT (SGPT) < U/L 6-55 L (BEAKER) (test code = 347) EGFR (BEAKER) 11 Interpretatio n of eGFR (test code = 1092) mL/min/1.[address] age Description sq m Result G1 Keiry l or high >=90 G2 Mildly decreased 60-89 G3a Mildl y to moderately 45-5 9 G3b Moderately to s everely 30-44 G4 Severl y decreased 15-29 G5 Kidney failure <15Reported eGF R is based on the CKD-EPI 2020 equation that d oes not use a race coefficientEsti mated GFR is not as accur ate as Creatinine Birdie lillian in predicting glom erular filtration rate . Estimated GFR is not appl icable for dialysis patien ts Wheat Washer ID - ADMINPOCT-GLUCOSE [id number] 22:25:49 Test Item Value Reference Range Interpretation Comments POC-GLUCOSE METER 61 mg/dL 70-110 L : TESTED A T [facility] 6720 (BEAKER) (test code = [facility], 1538) 05659: Wheat Washer/Techni patricia ID = [id number] for Take i, Kunihiro POCT-GLUCOSE [id number] 22:05:54 Test Item Value Reference Range Interpretation Comments POC-GLUCOSE METER 61 mg/dL 70-110 L : TESTED A T [facility] 6720 (BEAKER) (test code = [facility], 1538) 60989: Wheat Washer/Techni patricia ID = [id number] for Take i, Kunihiro POCT-GLUCOSE [id number] 21:38:12 Test Item Value Reference Range Interpretation Comments POC-GLUCOSE METER 52 mg/dL 70-110 L : TESTED A T [facility] 6720 (BEAKER) (test code = [facility], 1538) 77560: Wheat Washer/Techni patricia ID = [id number] for Take i, Kunihiro MISCELLANEOUS LAB [id number] 16:02:00 Test Item Value Reference Range Interpretation Comments SCAN RESULT (test code = See scanned report. [id number]) OXYGEN SATURATION, [id number] 15:33:00 Test Item Value Reference Range Interpretation Comments O2 SATURATION (MEASURED) (BEAKER) 70.9 % (test code = 1455) POCT-GLUCOSE [id number] 13:11:45 Test Item Value Reference Range Interpretation Comments POC-GLUCOSE METER 151 mg/dL 70-110 H : TESTED A T [facility] 6720 (BERYLEE) (test code [facility], = 1538) 05410: Wheat Washer/Techni patricia ID = [id number] for Agusto baron ([facility]), Ngozi OXYGEN SATURATION, [id number] 11:18:10 Test Item Value Reference Range Interpretation Comments O2 SATURATION (MEASURED) (RYLEE) 67.5 % (test code = 1455) XR CHEST 1 VIEW PORTABLE / [id number] 10:22:38 [facility] COLLEEN : 1955 Sex: FCLINICAL HISTORY: s/p ACB surgeryTECHNIQUE: 1 view of the chest.COMPARISON: 03/28/2023IMPRESSION:Support lines unchanged. Bilateral lower lung atelectasis unchanged. Nosignificant pleural fluid. The cardiomediastinal silhouette is magnifiedby technique with sternotomy wires. Cervical fusion hardware againseen .Electronically Signed By: Jeferson Novak03/29/2023 10:24 CDTWorkstation Name: [id number] 09:41:54 Test Item Value Reference Range Interpretation Comments POC-GLUCOSE METER 135 mg/dL 70-110 H : TESTED A T [facility] 6720 (TRAN) (test code [facility], = 1538) 41693: Wheat Washer/Techni patricia ID = [id number] for Agusto baron ([facility]), Ngozi OXYGEN SATURATION, [id number] 04:54:46 Test Item Value Reference Range Interpretation Comments O2 SATURATION (MEASURED) (BEAKER) 72.4 % (test code = 1455) BASIC METABOLIC [id number] 04:52:33 Test Item Value Reference Range Interpretation Comments SODIUM (BEAKER) 137 meq/L 136-145 (test code = 381) POTASSIUM 3.8 meq/L 3.5-5.1 (BEAKER) (test code = 379) CHLORIDE (BEAKER) 101 meq/L 98-107 (test code = 382) CO2 (BEAKER) 25 meq/L 22-29 (test code = 355) BLOOD UREA 20 mg/dL 7-21 NITROGEN (BEAKER) (test code = 354) CREATININE 3.22 mg/dL 0.57-1.25 H (BEAKER) (test code = 358) GLUCOSE RANDOM 120 mg/dL 70-105 H (BEAKER) (test code = 652) CALCIUM (BEAKER) 9.2 mg/dL 8.4-10.2 (test code = 697) EGFR (BEAKER) 15 Interpretatio n of eGFR (test code = mL/min/1.73 values Stage De scription 1092) sq m Result G1 Norm al or high >=90 G2 Mildly decreased 60-89 G3a Mildl y to moderately 45-5 9 G3b Moderately to s everely 30-44 G4 Severl y decreased 15-29 G5 Kidney failure <15Reported eGF R is based on the CKD-EPI 2020 equation that d oes not use a race coefficientEsti mated GFR is not as accur ate as Creatinine Birdie snyder in predicting glom erular filtration rate . Estimated GFR is not appl icable for dialysis patien ts Wheat Washer ID - [id number] 04:50:37 Test Item Value Reference Range Interpretation Comments MAGNESIUM (BEAKER) (test code = 1.7 mg/dL 1.6-2.6 627) Wheat Washer ID - [id number] 04:50:37 Test Item Value Reference Range Interpretation Comments PHOSPHORUS (BEAKER) (test code = 3.0 mg/dL 2.3-4.7 604) Wheat Washer ID - [id number] 04:25:05 Test Item Value Reference Range Interpretation Comments PROTIME (BEAKER) (test code = 15.1 seconds 11.9-14.2 H 759) INR (BEAKER) (test code = 370) 1.26 <=5.90 PARTIAL THROMBOPLASTIN TIME 30.6 seconds 22.5-36.0 (BEAKER) (test code = 760) RECOMMENDED COUMADIN/WARFARIN INR THERAPY RANGESSTANDARD DOSE: 2.0 - 3.0 Includes: PROPHYLAXIS for venous thrombosis, systemic embolization; TREATMENT for venous thrombosis and/or pulmonary embolus.HIGH RISK: Target INR is 2.5-3.5 for patients with mechanical heart valves.CBC W/PLT COUNT & AUTO [id number] 04:21:54 Test Item Value Reference Range Interpretation Comments WHITE BLOOD CELL COUNT (BEAKER) 10.4 K/ L 3.5-10.5 (test code = 775) RED BLOOD CELL COUNT (BEAKER) 2.83 M/ L 3.93-5.22 L (test code = 761) HEMOGLOBIN (BEAKER) (test code = 8.2 GM/DL 11.2-15.7 L 410) HEMATOCRIT (BEAKER) (test code = 26.6 % 34.1-44.9 L 411) MEAN CORPUSCULAR VOLUME (BEAKER) 94 fL 79-95 (test code = 753) MEAN CORPUSCULAR HEMOGLOBIN 29.0 pg 25.6-32.2 (BEAKER) (test code = 751) MEAN CORPUSCULAR HEMOGLOBIN CONC 30.8 GM/DL 32.2-35.5 L (BEAKER) (test code = 752) RED CELL DISTRIBUTION WIDTH 17.2 % 11.7-14.4 H (BEAKER) (test code = 412) PLATELET COUNT (BEAKER) (test 155 K/CU MM 150-450 code = 756) MEAN PLATELET VOLUME (BEAKER) 9.3 fL 9.4-12.3 L (test code = 754) NUCLEATED RED BLOOD CELLS 0 /100 WBC 0-0 (BEAKER) (test code = 413) NEUTROPHILS RELATIVE PERCENT 83 % (BEAKER) (test code = 429) LYMPHOCYTES RELATIVE PERCENT 7 % (BEAKER) (test code = 430) MONOCYTES RELATIVE PERCENT 7 % (BEAKER) (test code = 431) EOSINOPHILS RELATIVE PERCENT 3 % (BEAKER) (test code = 432) BASOPHILS RELATIVE PERCENT 0 % (BEAKER) (test code = 437) NEUTROPHILS ABSOLUTE COUNT 8.63 K/ L 1.56-6.13 H (BEAKER) (test code = 670) LYMPHOCYTES ABSOLUTE COUNT 0.67 K/ L 1.18-3.74 L (BEAKER) (test code = 414) MONOCYTES ABSOLUTE COUNT (BEAKER) 0.69 K/ L 0.24-0.36 H (test code = 415) EOSINOPHILS ABSOLUTE COUNT 0.31 K/ L 0.04-0.36 (BEAKER) (test code = 416) BASOPHILS ABSOLUTE COUNT (BEAKER) 0.03 K/ L 0.01-0.08 (test code = 417) IMMATURE GRANULOCYTES-RELATIVE 0.50 % 0.00-1.00 PERCENT (BEAKER) (test code = 2801) POCT-GLUCOSE [id number] 21:50:45 Test Item Value Reference Range Interpretation Comments POC-GLUCOSE METER 174 mg/dL 70-110 H : TESTED A T [facility] 6720 (BEAKER) (test code = [facility] [place], 1538) 6[address]: Wheat Washer/Techni patricia ID = [id number] for October CT CHEST WITHOUT IV [id number] 21:18:38 [facility]YA ROSS : 1955 Sex: FTECHNIQUE: CT scan of the chest WITHOUT intravenous contrast. Dosemodulation, iterative reconstruction, and/or weight-based adjustment ofthe mA/kV was utilized to reduce the radiation dose to as low asreasonably achievable.INDICATION: COPD, surveillance.COMPARISON: 03/11/2023.FINDINGS: ABSENCE OF INTRAVENOUS CONTRAST DECREASES SENSITIVITY FOR DETECTION OFFOCAL LESIONS AND VASCULAR PATHOLOGY.LINES/TUBES: Lefttransjugular pulmonary arterial catheter terminateswithin the right main pulmonary artery. Right transjugular centralvenous catheter terminates within the right atrium near the cavoatrialjunction.LUNGSAND AIRWAYS: Moderate bilateral dependent atelectasis there isinterlobular septal thickening and scattered groundglass parenchymalattenuation compatible with mild pulmonary edema. No focal airspaceconsolidation. Tracheobronchial airways are clear.PLEURA: The pleural spaces are clear.HEART AND MEDIASTINUM: The visualized left thyroid lobe is unremarkable.Several mildly enlarged mediastinal lymph nodesare decreased in sizecompared to prior and are favored to be reactive. There are markedcoronary atherosclerotic calcifications and the heart is enlarged, asbefore. Postsurgical changes status post CABG. There is a smallpericardial effusion with diameter of 1.4 cmSOFT TISSUES AND BONES: No acute osseous abnormality. Status post mediansternotomy. No significant soft tissue finding.UPPER ABDOMEN: Unremar kable.IMPRESSION:1. Cardiomegaly with mild pulmonary edema. No focal airspaceconsolidation.2. Statuspost CABG with small pericardial effusion.Electronically Signed By: Shelton Donaldson03/28/2023 21:20 CDTWorkstation Name: [id number] CHEST 1 VIEW PORTABLE / [id number] 18:56:16 [facility] : 1955 Sex: FXR CHEST 1 VIEW PORTABLE / BEDSIDETECHNIQUE: Frontal view(s) of the chest.INDICATION: swan placementswan placementCOMPARISON: Chest radiograph 13 hours priorFINDINGS/IMPRESSION:Lines/Tubes: Interval placement of a left IJ Secor-Delicia catheter with tipat the main pulmonary outflow tract. Remaining lines and tubes areunchanged.Lungs/pleura: Mild interstitial airspace opacities. No pleural effusion.No pneumothorax.Heart and Mediastinum: Unchanged.Soft Tissues and Bones: Unchanged.Electronically Signed By: Ese Butler03/28/2023 18:58 CDTWorkstation Name: [id number] 18:29:00 Test Item Value Reference Range Interpretation Comments POC-GLUCOSE METER 86 mg/dL 70-110 : Notified RN/MD: TESTED (BEAKER) (test code = AT [facility] 6720 [facility] 1538) [facility], 770 30: Wheat Washer/Techni patricia ID = [id number] for Ryan Anaya OXYGEN SATURATION, [id number] 16:29:39 Test Item Value Reference Range Interpretation Comments O2 SATURATION (MEASURED) (BEAKER) 85.3 % (test code = 1455) [id number] 14:08:11 Test Item Value Reference Range Interpretation Comments PARTIAL THROMBOPLASTIN TIME 35.1 seconds 22.5-36.0 (BEAKER) (test code = 760) POCT-GLUCOSE [id number] 12:10:15 Test Item Value Reference Range Interpretation Comments POC-GLUCOSE METER 144 mg/dL 70-110 H : TESTED A T [facility] 6720 (BEAKER) (test code = SARM[facility] R [facility], 1538) 26329: Wheat Washer/Techni patricia ID = [id number] for Krysta nii([facility])Enrique OXYGEN SATURATION, [id number] 10:57:00 Test Item Value Reference Range Interpretation Comments O2 SATURATION (MEASURED) (BEAKER) 78.0 % (test code = 1455) XR CHEST 1 VIEW PORTABLE / [id number] 09:16:56 [facility] : 1955 Sex: FCLINICAL HISTORY: s/p ACB surgeryTECHNIQUE: 1 view of the chest.COMPARISON: 03/27/2023IMPRESSION:Bilateral central lines unchanged. Pulmonary vascular congestion againseen. No significant pleural fluid. Cardiomegaly again seenpoststernotomy.Electronically Signed By: Jeferson Novak03/28/2023 09:18 CDTWorkstation Name: [id number] 07:45:14 Test Item Value Reference Range Interpretation Comments POC-GLUCOSE METER 121 mg/dL 70-110 H : TESTED A T [facility] 6720 ([facility]) (test code = [facility] Barreto [facility], 1538) 67[address]: Wheat Washer/Techni patricia ID = [id number] for Krysta bales([facility])Enrique [id number] 06:30:11 Test Item Value Reference Range Interpretation Comments PROTIME (BEAKER) (test code = 16.6 seconds 11.9-14.2 H 759) INR (BEAKER) (test code = 370) 1.43 <=5.90 PARTIAL THROMBOPLASTIN TIME 126.1 seconds 22.5-36.0 H (BEAKER) (test code = 760) RECOMMENDED COUMADIN/WARFARIN INR THERAPY RANGESSTANDARD DOSE: 2.0 - 3.0 Includes: PROPHYLAXIS for venous thrombosis, systemic embolization; TREATMENT for venous thrombosis and/or pulmonary embolus.HIGH RISK: Target INR is 2.5-3.5 for patients with mechanical heart valves.BASIC METABOLIC [id number] 06:22:32 Test Item Value Reference Range Interpretation Comments SODIUM (BEAKER) 136 meq/L 136-145 (test code = 381) POTASSIUM 4.0 meq/L 3.5-5.1 (BEAKER) (test code = 379) CHLORIDE (BEAKER) 101 meq/L 98-107 (test code = 382) CO2 (BEAKER) 24 meq/L 22-29 (test code = 355) BLOOD UREA 34 mg/dL 7-21 H NITROGEN (BEAKER) (test code = 354) CREATININE 4.10 mg/dL 0.57-1.25 H (BEAKER) (test code = 358) GLUCOSE RANDOM 132 mg/dL 70-105 H (BEAKER) (test code = 652) CALCIUM (BEAKER) 9.1 mg/dL 8.4-10.2 (test code = 697) EGFR (BEAKER) 11 Interpretatio n of eGFR (test code = mL/min/1.73 values Stage De scription 1092) sq m Result G1 Keiry l or high >=90 G2 Mildly decreased 60-89 G3a Mildl y to moderately 45-5 9 G3b Moderately to s everely 30-44 G4 Severl y decreased 15-29 G5 Kidney failure <15Reported eGF R is based on the CKD-EPI 2020 equation that d oes not use a race coefficientEsti mated GFR is not as accur ate as Creatinine Birdie lillian in predicting glom erular filtration rate . Estimated GFR is not appl icable for dialysis patien ts Wheat Washer ID - [id number] 06:20:13 Test Item Value Reference Range Interpretation Comments PHOSPHORUS (BEAKER) (test code = 3.5 mg/dL 2.3-4.7 604) Wheat Washer ID - [id number] 06:20:12 Test Item Value Reference Range Interpretation Comments MAGNESIUM (BEAKER) (test code = 1.8 mg/dL 1.6-2.6 627) Wheat Washer ID - EMCBC W/PLT COUNT & AUTO [id number] 06:05:16 Test Item Value Reference Range Interpretation Comments WHITE BLOOD CELL COUNT (BEAKER) 10.0 K/ L 3.5-10.5 (test code = 775) RED BLOOD CELL COUNT (BEAKER) 2.76 M/ L 3.93-5.22 L (test code = 761) HEMOGLOBIN (BEAKER) (test code = 7.8 GM/DL 11.2-15.7 L 410) HEMATOCRIT (BEAKER) (test code = 26.6 % 34.1-44.9 L 411) MEAN CORPUSCULAR VOLUME (BEAKER) 96 fL 79-95 H (test code = 753) MEAN CORPUSCULAR HEMOGLOBIN 28.3 pg 25.6-32.2 (BEAKER) (test code = 751) MEAN CORPUSCULAR HEMOGLOBIN CONC 29.3 GM/DL 32.2-35.5 L (BEAKER) (test code = 752) RED CELL DISTRIBUTION WIDTH 17.2 % 11.7-14.4 H (BEAKER) (test code = 412) PLATELET COUNT (BEAKER) (test 163 K/CU MM 150-450 code = 756) MEAN PLATELET VOLUME (BEAKER) 9.4 fL 9.4-12.3 (test code = 754) NUCLEATED RED BLOOD CELLS 0 /100 WBC 0-0 (BEAKER) (test code = 413) NEUTROPHILS RELATIVE PERCENT 81 % (BEAKER) (test code = 429) LYMPHOCYTES RELATIVE PERCENT 8 % (BEAKER) (test code = 430) MONOCYTES RELATIVE PERCENT 7 % (BEAKER) (test code = 431) EOSINOPHILS RELATIVE PERCENT 3 % (BEAKER) (test code = 432) BASOPHILS RELATIVE PERCENT 0 % (BEAKER) (test code = 437) NEUTROPHILS ABSOLUTE COUNT 8.08 K/ L 1.56-6.13 H (BEAKER) (test code = 670) LYMPHOCYTES ABSOLUTE COUNT 0.75 K/ L 1.18-3.74 L (BEAKER) (test code = 414) MONOCYTES ABSOLUTE COUNT (BEAKER) 0.71 K/ L 0.24-0.36 H (test code = 415) EOSINOPHILS ABSOLUTE COUNT 0.32 K/ L 0.04-0.36 (BEAKER) (test code = 416) BASOPHILS ABSOLUTE COUNT (BEAKER) 0.01 K/ L 0.01-0.08 (test code = 417) IMMATURE GRANULOCYTES-RELATIVE 0.80 % 0.00-1.00 PERCENT (BEAKER) (test code = 2801) OXYGEN SATURATION, [id number] 05:40:56 Test Item Value Reference Range Interpretation Comments O2 SATURATION (MEASURED) (BEAKER) 66.5 % (test code = 1455) OXYGEN SATURATION, [id number] 22:12:22 Test Item Value Reference Range Interpretation Comments O2 SATURATION (MEASURED) (BEAKER) 48.3 % (test code = 1455) POCT-GLUCOSE [id number] 22:01:20 Test Item Value Reference Range Interpretation Comments POC-GLUCOSE METER 255 mg/dL 70-110 H : TESTED A T [facility] 6720 (BEAKER) (test code = [place], 1538) [id number]: Wheat Washer/Techni patricia ID = [id number] for Kari Zamora POCT-GLUCOSE [id number] 16:48:56 Test Item Value Reference Range Interpretation Comments POC-GLUCOSE METER 155 mg/dL 70-110 H : Notified RN/MD: (TRAN) (test code = TESTED AT [place] [address]) [facility], [address]: Wheat Washer/Techni patricia ID = [id number] for Mo rris, Kylee [id number] 15:59:55 Test Item Value Reference Range Interpretation Comments PARTIAL THROMBOPLASTIN TIME 42.3 seconds 22.5-36.0 H ([facility]) (test code = 760) [id number] 14:37:38 Test Item Value Reference Range Interpretation Comments PARTIAL THROMBOPLASTIN TIME > seconds 22.5-36.0 HH (AKER) (test code = 760) OXYGEN SATURATION, [id number] 14:11:04 Test Item Value Reference Range Interpretation Comments O2 SATURATION (MEASURED) ([facility]) 48.1 % (test code = 1455) POCT-GLUCOSE [id number] 11:33:26 Test Item Value Reference Range Interpretation Comments POC-GLUCOSE METER 188 mg/dL 70-110 H : Notified RN/MD: (TRAN) (test code = TESTED AT [place] [address]) [facility], [address]: Wheat Washer/Techni patricia ID = [id number] for Mo rris, Kylee OXYGEN SATURATION, [id number] 11:11:52 Test Item Value Reference Range Interpretation Comments O2 SATURATION (MEASURED) ([facility]) 52.7 % (test code = 1455) POCT-GLUCOSE [id number] 07:44:06 Test Item Value Reference Range Interpretation Comments POC-GLUCOSE METER 118 mg/dL 70-110 H : Notified RN/MD: (TRAN) (test code = TESTED AT [place] [address]) [facility], [address]: Wheat Washer/Techni patricia ID = [id number] for Mo rris, Kylee XR CHEST 1 VIEW PORTABLE / [id number] 07:17:47 [facility] 1955 Sex: FCLINICAL HISTORY: s/p ACB surgeryTECHNIQUE: 1 view of the chest.COMPARISON: 03/26/2023IMPRESSION:The supporting lines and tubes are similar appearing. Mild lungopacities again seen without new lobar consolidation or increasingpleural fluid. The cardiomediastinal silhouette is magnified bytechnique with sternotomy wires. Electronically Signed By: Jeferson Novak03/27/2023 07:19 CDTWorkstation Name: [id number] 06:10:36 Test Item Value Reference Range Interpretation Comments PROTIME (BEAKER) (test 18.0 seconds 11.9-14.2 H code = 759) INR (BEAKER) (test 1.58 See_Comment [Automat ed code = 370) message] The sy stem which generated this result transmitted reference range : <=5.90. The reference range was not used to interpret this result as normal/abnormal . PARTIAL THROMBOPLASTIN > seconds 22.5-36.0 HH TIME (BEAKER) (test code = 760) RECOMMENDED COUMADIN/WARFARIN INR THERAPY RANGESSTANDARD DOSE: 2.0 - 3.0 Includes: PROPHYLAXIS for venous thrombosis, systemic embolization; TREATMENT for venous thrombosis and/or pulmonary embolus.HIGH RISK: Target INR is 2.5-3.5 for patients with mechanical heart valves.OXYGEN SATURATION, [id number] 04:41:11 Test Item Value Reference Range Interpretation Comments O2 SATURATION (MEASURED) (BEAKER) 61.1 % (test code = 1455) BASIC METABOLIC [id number] 04:28:59 Test Item Value Reference Range Interpretation Comments SODIUM (BEAKER) 139 meq/L 136-145 (test code = 381) POTASSIUM 3.9 meq/L 3.5-5.1 (BEAKER) (test code = 379) CHLORIDE (BEAKER) 102 meq/L 98-107 (test code = 382) CO2 (BEAKER) 26 meq/L 22-29 (test code = 355) BLOOD UREA 18 mg/dL 7-21 NITROGEN (BEAKER) (test code = 354) CREATININE 2.89 mg/dL 0.57-1.25 H (BEAKER) (test code = 358) GLUCOSE RANDOM 148 mg/dL 70-105 H (BEAKER) (test code = 652) CALCIUM (BEAKER) 9.3 mg/dL 8.4-10.2 (test code = 697) EGFR (BEAKER) 17 Interpretatio n of eGFR (test code = mL/min/1.73 values Stage De scription 1092) sq m Result G1 Norm al or high >=90 G2 Mildly decreased 60-89 G3a Mildl y to moderately 45-5 9 G3b Moderately to s everely 30-44 G4 Severl y decreased 15-29 G5 Kidne y failure <15Reported eGF R is based on the CKD-EPI 2020 equation that d oes not use a race coefficientEsti mated GFR is not as accur ate as Creatinine Birdie lillian in predicting glom erular filtration rate . Estimated GFR is not appl icable for dialysis patien ts Wheat Washer ID - [id number] 04:28:53 Test Item Value Reference Range Interpretation Comments PROTIME (BEAKER) (test 18.5 seconds 11.9-14.2 H code = 759) INR (BEAKER) (test 1.65 See_Comment [Automat ed code = 370) message] The sy stem which generated this result transmitted reference range : <=5.90. The reference range was not used to interpret this result as normal/abnormal . PARTIAL THROMBOPLASTIN > seconds 22.5-36.0 HH TIME (BEAKER) (test code = 760) RECOMMENDED COUMADIN/WARFARIN INR THERAPY RANGESSTANDARD DOSE: 2.0 - 3.0 Includes: PROPHYLAXIS for venous thrombosis, systemic embolization; TREATMENT for venous thrombosis and/or pulmonary embolus.HIGH RISK: Target INR is 2.5-3.5 for patients with mechanical heart valves.[id number] 04:20:08 Test Item Value Reference Range Interpretation Comments MAGNESIUM (BEAKER) (test code = 1.9 mg/dL 1.6-2.6 627) Wheat Washer ID - [id number] 04:20:08 Test Item Value Reference Range Interpretation Comments PHOSPHORUS (BEAKER) (test code = 2.6 mg/dL 2.3-4.7 604) Wheat Washer ID - EMCBC W/PLT COUNT & AUTO [id number] 03:50:42 Test Item Value Reference Range Interpretation Comments WHITE BLOOD CELL COUNT (BEAKER) 9.3 K/ L 3.5-10.5 (test code = 775) RED BLOOD CELL COUNT (BEAKER) 2.85 M/ L 3.93-5.22 L (test code = 761) HEMOGLOBIN (BEAKER) (test code = 8.2 GM/DL 11.2-15.7 L 410) HEMATOCRIT (BEAKER) (test code = 26.8 % 34.1-44.9 L 411) MEAN CORPUSCULAR VOLUME (BEAKER) 94 fL 79-95 (test code = 753) MEAN CORPUSCULAR HEMOGLOBIN 28.8 pg 25.6-32.2 (BEAKER) (test code = 751) MEAN CORPUSCULAR HEMOGLOBIN CONC 30.6 GM/DL 32.2-35.5 L (BEAKER) (test code = 752) RED CELL DISTRIBUTION WIDTH 17.1 % 11.7-14.4 H (BEAKER) (test code = 412) PLATELET COUNT (BEAKER) (test 155 K/CU MM 150-450 code = 756) MEAN PLATELET VOLUME (BEAKER) 9.5 fL 9.4-12.3 (test code = 754) NUCLEATED RED BLOOD CELLS 0 /100 WBC 0-0 (BEAKER) (test code = 413) NEUTROPHILS RELATIVE PERCENT 83 % (BEAKER) (test code = 429) LYMPHOCYTES RELATIVE PERCENT 6 % (BEAKER) (test code = 430) MONOCYTES RELATIVE PERCENT 7 % (BEAKER) (test code = 431) EOSINOPHILS RELATIVE PERCENT 3 % (BEAKER) (test code = 432) BASOPHILS RELATIVE PERCENT 0 % (BEAKER) (test code = 437) NEUTROPHILS ABSOLUTE COUNT 7.74 K/ L 1.56-6.13 H (BEAKER) (test code = 670) LYMPHOCYTES ABSOLUTE COUNT 0.58 K/ L 1.18-3.74 L (BEAKER) (test code = 414) MONOCYTES ABSOLUTE COUNT (BEAKER) 0.67 K/ L 0.24-0.36 H (test code = 415) EOSINOPHILS ABSOLUTE COUNT 0.24 K/ L 0.04-0.36 (BEAKER) (test code = 416) BASOPHILS ABSOLUTE COUNT (BEAKER) 0.02 K/ L 0.01-0.08 (test code = 417) IMMATURE GRANULOCYTES-RELATIVE 0.40 % 0.00-1.00 PERCENT (BEAKER) (test code = 2801) POCT-GLUCOSE [id number] 21:45:54 Test Item Value Reference Range Interpretation Comments POC-GLUCOSE METER 167 mg/dL 70-110 H : TESTED A T [facility] 6720 (BEAKER) (test code = [facility], 1538) [address]: Wheat Washer/Techni patricia ID = [id number] for DO LUIS SARMIENTO OXYGEN SATURATION, [id number] 18:11:23 Test Item Value Reference Range Interpretation Comments O2 SATURATION (MEASURED) (BEAKER) 55.9 % (test code = 1455) LACTIC ACID, [id number] 17:55:23 Test Item Value Reference Range Interpretation Comments LACTATE BLOOD ARTERIAL (2) 1.1 mmol/L 0.5-2.0 (BEAKER) (test code = 2874) Wheat Washer ID - MMPOCT-GLUCOSE [id number] 17:50:42 Test Item Value Reference Range Interpretation Comments POC-GLUCOSE METER 105 mg/dL 70-110 : TESTED A T [facility] 6720 (BEAKER) (test code = [facility], 153) [address]: Wheat Washer/Techni patricia ID = [id number] for Po ss, Yina POCT-GLUCOSE [id number] 12:09:49 Test Item Value Reference Range Interpretation Comments POC-GLUCOSE METER 231 mg/dL 70-110 H : TESTED A T [facility] 6720 (BEAKER) (test code = [facility], 1538) [address]: Wheat Washer/Techni patricia ID = [id number] for Po ss, Yina POCT-GLUCOSE [id number] 07:53:56 Test Item Value Reference Range Interpretation Comments POC-GLUCOSE METER 150 mg/dL 70-110 H : TESTED A T [facility] 6720 (BEAKER) (test code = [facility], 1538) [address]: Wheat Washer/Techni patricia ID = [id number] for Po ss, Yina XR CHEST 1 VIEW PORTABLE / [id number] 06:57:52 [facility] : 1955 Sex: FCLINICAL HISTORY: s/p ACB surgeryTECHNIQUE: 1 view of the chest.COMPARISON: 03/25/2023IMPRESSION:Right jugular line and left jugular sheath unchanged. Bilateral chesttubes have been removed.No pneumothorax. Mildly prominent lung markings are unchanged. There isno significant pleural fluid. The cardiomediastinal silhouette ismagnified by technique with sternotomy wires. Electronically Signed By: Jeferson Novak03/26/2023 06:59 CDTWorkstation Name: [id number] 05:46:07 Test Item Value Reference Range Interpretation Comments PARTIAL THROMBOPLASTIN TIME 61.4 seconds 22.5-36.0 H (BEAKER) (test code = 760) BASIC METABOLIC [id number] 04:48:14 Test Item Value Reference Range Interpretation Comments SODIUM (BEAKER) 134 meq/L 136-145 L (test code = 381) POTASSIUM 3.9 meq/L 3.5-5.1 (BEAKER) (test code = 379) CHLORIDE (BEAKER) 98 meq/L 98-107 (test code = 382) CO2 (BEAKER) 23 meq/L 22-29 (test code = 355) BLOOD UREA 42 mg/dL 7-21 H NITROGEN (BEAKER) (test code = 354) CREATININE 4.49 mg/dL 0.57-1.25 H (BEAKER) (test code = 358) GLUCOSE RANDOM 129 mg/dL 70-105 H (BEAKER) (test code = 652) CALCIUM (BEAKER) 9.1 mg/dL 8.4-10.2 (test code = 697) EGFR (BEAKER) 10 Interpretatio n of eGFR (test code = mL/min/1.73 values Stage De scription 1092) sq m Result G1 Keiry l or high >=90 G2 Mildly decreased 60-89 G3a Mildl y to moderately 45-5 9 G3b Moderately to s everely 30-44 G4 Severl y decreased 15-29 G5 Kidney failure <15Reported eGF R is based on the CKD-EPI 2020 equation that d oes not use a race coefficientEsti mated GFR is not as accur ate as Creatinine Birdie lillian in predicting glom erular filtration rate . Estimated GFR is not appl icable for dialysis patien ts Wheat Washer ID - MARCOCBC W/PLT COUNT & AUTO [id number] 04:37:01 Test Item Value Reference Range Interpretation Comments WHITE BLOOD CELL COUNT (BEAKER) 10.2 K/ L 3.5-10.5 (test code = 775) RED BLOOD CELL COUNT (BEAKER) 3.06 M/ L 3.93-5.22 L (test code = 761) HEMOGLOBIN (BEAKER) (test code = 8.8 GM/DL 11.2-15.7 L 410) HEMATOCRIT (BEAKER) (test code = 28.8 % 34.1-44.9 L 411) MEAN CORPUSCULAR VOLUME (BEAKER) 94 fL 79-95 (test code = 753) MEAN CORPUSCULAR HEMOGLOBIN 28.8 pg 25.6-32.2 (BEAKER) (test code = 751) MEAN CORPUSCULAR HEMOGLOBIN CONC 30.6 GM/DL 32.2-35.5 L (BEAKER) (test code = 752) RED CELL DISTRIBUTION WIDTH 16.9 % 11.7-14.4 H (BEAKER) (test code = 412) PLATELET COUNT (BEAKER) (test 167 K/CU MM 150-450 code = 756) MEAN PLATELET VOLUME (BEAKER) 9.5 fL 9.4-12.3 (test code = 754) NUCLEATED RED BLOOD CELLS 0 /100 WBC 0-0 (BEAKER) (test code = 413) NEUTROPHILS RELATIVE PERCENT 81 % (BEAKER) (test code = 429) LYMPHOCYTES RELATIVE PERCENT 7 % (BEAKER) (test code = 430) MONOCYTES RELATIVE PERCENT 8 % (BEAKER) (test code = 431) EOSINOPHILS RELATIVE PERCENT 4 % (BEAKER) (test code = 432) BASOPHILS RELATIVE PERCENT 0 % (BEAKER) (test code = 437) NEUTROPHILS ABSOLUTE COUNT 8.25 K/ L 1.56-6.13 H (BEAKER) (test code = 670) LYMPHOCYTES ABSOLUTE COUNT 0.75 K/ L 1.18-3.74 L (BEAKER) (test code = 414) MONOCYTES ABSOLUTE COUNT (BEAKER) 0.79 K/ L 0.24-0.36 H (test code = 415) EOSINOPHILS ABSOLUTE COUNT 0.36 K/ L 0.04-0.36 (BEAKER) (test code = 416) BASOPHILS ABSOLUTE COUNT (BEAKER) 0.01 K/ L 0.01-0.08 (test code = 417) IMMATURE GRANULOCYTES-RELATIVE 0.50 % 0.00-1.00 PERCENT (BEAKER) (test code = 2801) [id number] 04:36:37 Test Item Value Reference Range Interpretation Comments PHOSPHORUS (BEAKER) (test code = 4.0 mg/dL 2.3-4.7 604) Wheat Washer ID - [id number] 04:36:36 Test Item Value Reference Range Interpretation Comments MAGNESIUM (BEAKER) (test code = 1.9 mg/dL 1.6-2.6 627) Wheat Washer ID - [id number] 04:35:52 Test Item Value Reference Range Interpretation Comments PROTIME (BEAKER) (test 18.4 seconds 11.9-14.2 H code = 759) INR (BEAKER) (test 1.64 See_Comment [Automat ed code = 370) message] The sy stem which generated this result transmitted reference range : <=5.90. The reference range was not used to interpret this result as normal/abnormal . PARTIAL THROMBOPLASTIN > seconds 22.5-36.0 HH TIME (BEAKER) (test code = 760) RECOMMENDED COUMADIN/WARFARIN INR THERAPY RANGESSTANDARD DOSE: 2.0 - 3.0 Includes: PROPHYLAXIS for venous thrombosis, systemic embolization; TREATMENT for venous thrombosis and/or pulmonary embolus.HIGH RISK: Target INR is 2.5-3.5 for patients with mechanical heart valves.OXYGEN SATURATION, [id number] 04:29:23 Test Item Value Reference Range Interpretation Comments [facility] SAT[facility] ([facility]UR[facility]) [facility] 58.3 % (test code = 1455) POCT-GLUCOSE [id number] 22:52:04 Test Item Value Reference Range Interpretation Comments POC-GLUCOSE METER 138 mg/dL 70-110 H : Notified RN/MD: TESTED ([facility]) (test code AT [facility] [address] = 1538) [facility], [address]: Wheat Washer/Techni patricia ID = [id number] for Aldair Chapman POCT-GLUCOSE [id number] 12:57:00 Test Item Value Reference Range Interpretation Comments POC-GLUCOSE METER 144 mg/dL 70-110 H : TESTED A T [facility] 67 ([facility]) (test code = SARMAD Barreto [facility], 1538) [address]: Wheat Washer/Techni patricia ID = [id number] for Da rrell (DivFlt), Caitl in XR CHEST 1 VIEW PORTABLE / [id number] 05:50:32 [facility] : 1955 Sex: FExam:XR CHEST 1 VIEW PORTABLE / BEDSIDEDate: 03/25/2023 5:49 AMIndication:s/p ACB surgeryComparison: Yesterday.IMPRESSION:Lines/Tubes:Unchanged postoperative changes and support devices.Lungs and Pleura : Nopleural effusion. No pneumothorax. Mild perihilarand interstitial opacities redemonstrated.Heart/Medi astinum:Unchanged.Bones/Soft Tissues: No acute osseous abnormality.Upper abdomen: Unremarkable.Electronically Signed By: Ricky Mora03/25/2023 05:52 CDTWorkstation Name: [id number], [id number] 04:33:23 Test Item Value Reference Range Interpretation Comments CALCIUM IONIZED (BEAKER) (test 1.19 mmol/L 1.12-1.27 code = 698) PH, BLOOD (BEAKER) (test code = 7.39 1810) BASIC METABOLIC [id number] 04:29:47 Test Item Value Reference Range Interpretation Comments SODIUM (BEAKER) 135 meq/L 136-145 L (test code = 381) POTASSIUM 3.9 meq/L 3.5-5.1 (BEAKER) (test code = 379) CHLORIDE (BEAKER) 100 meq/L 98-107 (test code = 382) CO2 (BEAKER) 24 meq/L 22-29 (test code = 355) BLOOD UREA 33 mg/dL 7-21 H NITROGEN (BEAKER) (test code = 354) CREATININE 3.33 mg/dL 0.57-1.25 H (BEAKER) (test code = 358) GLUCOSE RANDOM 121 mg/dL 70-105 H (BEAKER) (test code = 652) CALCIUM (BEAKER) 9.2 mg/dL 8.4-10.2 (test code = 697) EGFR (BEAKER) 15 Interpretatio n of eGFR (test code = mL/min/1.73 values Stage De scription 1092) sq m Result G1 Norm al or high >=90 G2 Mildly decreased 60-89 G3a Mildl y to moderately 45-5 9 G3b Moderately to s everely 30-44 G4 Severl y decreased 15-29 G5 Kidne y failure <15Reported eGF R is based on the CKD-EPI 2021 equation that d oes not use a race coefficientEsti mated GFR is not as accur ate as Creatinine Birdie snyder in predicting glom erular filtration rate . Estimated GFR is not appl icable for dialysis patien ts Wheat Washer ID - JAKE [id number] 04:25:02 Test Item Value Reference Range Interpretation Comments PHOSPHORUS (BEAKER) (test code = 3.1 mg/dL 2.3-4.7 604) Wheat Washer ID - JAKE [id number] 04:25:01 Test Item Value Reference Range Interpretation Comments MAGNESIUM (BEAKER) (test code = 1.9 mg/dL 1.6-2.6 627) Wheat Washer ID - JAKE [id number] 04:17:59 Test Item Value Reference Range Interpretation Comments PROTIME (BEAKER) (test 20.0 seconds 11.9-14.2 H code = 759) INR (BEAKER) (test 1.83 See_Comment [Automat ed code = 370) message] The sy stem which generated this result transmitted reference range : <=5.90. The reference range was not used to interpret this result as normal/abnormal . PARTIAL THROMBOPLASTIN 53.1 seconds 22.5-36.0 H TIME (BEAKER) (test code = 760) RECOMMENDED COUMADIN/WARFARIN INR THERAPY RANGESSTANDARD DOSE: 2.0 - 3.0 Includes: PROPHYLAXIS for venous thrombosis, systemic embolization; TREATMENT for venous thrombosis and/or pulmonary embolus.HIGH RISK: Target INR is 2.5-3.5 for patients with mechanical heart valves.CBC W/PLT COUNT & AUTO [id number] 04:14:59 Test Item Value Reference Range Interpretation Comments WHITE BLOOD CELL COUNT (BEAKER) 11.2 K/ L 3.5-10.5 H (test code = 775) RED BLOOD CELL COUNT (BEAKER) 3.21 M/ L 3.93-5.22 L (test code = 761) HEMOGLOBIN (BEAKER) (test code = 9.2 GM/DL 11.2-15.7 L 410) HEMATOCRIT (BEAKER) (test code = 29.5 % 34.1-44.9 L 411) MEAN CORPUSCULAR VOLUME (BEAKER) 92 fL 79-95 (test code = 753) MEAN CORPUSCULAR HEMOGLOBIN 28.7 pg 25.6-32.2 (BEAKER) (test code = 751) MEAN CORPUSCULAR HEMOGLOBIN CONC 31.2 GM/DL 32.2-35.5 L (BEAKER) (test code = 752) RED CELL DISTRIBUTION WIDTH 17.0 % 11.7-14.4 H (BEAKER) (test code = 412) PLATELET COUNT (BEAKER) (test 180 K/CU MM 150-450 code = 756) MEAN PLATELET VOLUME (BEAKER) 9.3 fL 9.4-12.3 L (test code = 754) NUCLEATED RED BLOOD CELLS 0 /100 WBC 0-0 (BEAKER) (test code = 413) NEUTROPHILS RELATIVE PERCENT 81 % (BEAKER) (test code = 429) LYMPHOCYTES RELATIVE PERCENT 7 % (BEAKER) (test code = 430) MONOCYTES RELATIVE PERCENT 8 % (BEAKER) (test code = 431) EOSINOPHILS RELATIVE PERCENT 4 % (BEAKER) (test code = 432) BASOPHILS RELATIVE PERCENT 0 % (BEAKER) (test code = 437) NEUTROPHILS ABSOLUTE COUNT 9.09 K/ L 1.56-6.13 H (BEAKER) (test code = 670) LYMPHOCYTES ABSOLUTE COUNT 0.73 K/ L 1.18-3.74 L (BEAKER) (test code = 414) MONOCYTES ABSOLUTE COUNT (BEAKER) 0.89 K/ L 0.24-0.36 H (test code = 415) EOSINOPHILS ABSOLUTE COUNT 0.40 K/ L 0.04-0.36 H (BEAKER) (test code = 416) BASOPHILS ABSOLUTE COUNT (BEAKER) 0.02 K/ L 0.01-0.08 (test code = 417) IMMATURE GRANULOCYTES-RELATIVE 0.40 % 0.00-1.00 PERCENT (BEAKER) (test code = 2801) OXYGEN SATURATION, [id number] 04:10:13 Test Item Value Reference Range Interpretation Comments O2 SATURATION (MEASURED) (BEAKER) 63.3 % (test code = 1455) POCT-GLUCOSE [id number] 22:45:55 Test Item Value Reference Range Interpretation Comments POC-GLUCOSE METER 257 mg/dL 70-110 H : TESTED A T [facility] 6720 (BEAKER) (test code [facility], = 1538) [address]: Wheat Washer/Techni patricia ID = [id number] for No boyle (contract)Mitchell POCT-GLUCOSE [id number] 13:10:38 Test Item Value Reference Range Interpretation Comments POC-GLUCOSE METER 135 mg/dL 70-110 H : TESTED A T [facility] 6720 (BEAKER) (test [facility] = [facility], 1538) [address]: Wheat Washer/Techni patricia ID = [id number] for TAI MARTINEZ [id number] 10:52:17 Test Item Value Reference Range Interpretation Comments PARTIAL THROMBOPLASTIN TIME 49.0 seconds 22.5-36.0 H (BEAKER) (test code = 760) XR CHEST 1 VIEW PORTABLE / [id number] 05:50:17 [facility] : 1955 Sex: FExam:XR CHEST 1 VIEW PORTABLE / BEDSIDEDate: 03/24/2023 5:49 AMIndication:s/p ACB surgeryComparison: Yesterday.IMPRESSION:Lines/Tubes:Unchanged support devices and postoperative changes.Lungs and Pleura : Mild perihilar opacities may represent pulmonaryvascular congestion. Decreased interstitial opacities. No pleuraleffusions. No pneumothorax.Heart/Mediastinum:UnchangedBones/Soft Tissues: No acute osseous abnormality.Upper abdomen: Unremarkable.Electronically Signed By: Ricky Mora03/24/2023 05:52 CDTWorkstation Name: [id number] METABOLIC [id number] 04:25:29 Test Item Value Reference Range Interpretation Comments SODIUM (BEAKER) 138 meq/L 136-145 (test code = 381) POTASSIUM 3.7 meq/L 3.5-5.1 (BEAKER) (test code = 379) CHLORIDE (BEAKER) 102 meq/L 98-107 (test code = 382) CO2 (BEAKER) 22 meq/L 22-29 (test code = 355) BLOOD UREA 13 mg/dL 7-21 NITROGEN (BEAKER) (test code = 354) CREATININE 2.01 mg/dL 0.57-1.25 H (BEAKER) (test code = 358) GLUCOSE RANDOM 117 mg/dL 70-105 H (BEAKER) (test code = 652) CALCIUM (BEAKER) 9.4 mg/dL 8.4-10.2 (test code = 697) EGFR (BEAKER) 27 Interpretatio n of eGFR (test code = mL/min/1.73 values Stage De scription 1092) sq m Result G1 Keiry l or high >=90 G2 Mildly decreased 60-89 G3a Mildl y to moderately 45-5 9 G3b Moderately to s everely 30-44 G4 Severl y decreased 15-29 G5 Kidne y failure <15Reported eGF R is based on the CKD-EPI 2020 equation that d oes not use a race coefficientEsti mated GFR is not as accur ate as Creatinine Birdie lillian in predicting glom erular filtration rate . Estimated GFR is not appl icable for dialysis patien ts Wheat Washer ID - [id number] 04:24:23 Test Item Value Reference Range Interpretation Comments PHOSPHORUS (BEAKER) (test code = 3.0 mg/dL 2.3-4.7 604) Wheat Washer ID - [id number] 04:24:22 Test Item Value Reference Range Interpretation Comments MAGNESIUM (BEAKER) (test code = 2.1 mg/dL 1.6-2.6 627) Wheat Washer ID - [id number] 04:09:38 Test Item Value Reference Range Interpretation Comments PROTIME (BEAKER) (test 22.0 seconds 11.9-14.2 H code = 759) INR (BEAKER) (test 1.98 See_Comment [Automat ed code = 370) message] The [employer] stem which generated this result transmitted reference range : <=5.90. The reference range was not used to interpret this result as normal/abnormal . PARTIAL THROMBOPLASTIN 51.4 seconds 22.5-36.0 H TIME (BEAKER) (test code = 760) RECOMMENDED COUMADIN/WARFARIN INR THERAPY RANGESSTANDARD DOSE: 2.0 - 3.0 Includes: PROPHYLAXIS for venous thrombosis, systemic embolization; TREATMENT for venous thrombosis and/or pulmonary embolus.HIGH RISK: Target INR is 2.5-3.5 for patients with mechanical heart valves.CBC W/PLT COUNT & AUTO [id number] 04:03:45 Test Item Value Reference Range Interpretation Comments WHITE BLOOD CELL COUNT (BEAKER) 10.6 K/ L 3.5-10.5 H (test code = 775) RED BLOOD CELL COUNT (BEAKER) 3.28 M/ L 3.93-5.22 L (test code = 761) HEMOGLOBIN (BEAKER) (test code = 9.3 GM/DL 11.2-15.7 L 410) HEMATOCRIT (BEAKER) (test code = 30.8 % 34.1-44.9 L 411) MEAN CORPUSCULAR VOLUME (BEAKER) 94 fL 79-95 (test code = 753) MEAN CORPUSCULAR HEMOGLOBIN 28.4 pg 25.6-32.2 (BEAKER) (test code = 751) MEAN CORPUSCULAR HEMOGLOBIN CONC 30.2 GM/DL 32.2-35.5 L (BEAKER) (test code = 752) RED CELL DISTRIBUTION WIDTH 17.2 % 11.7-14.4 H (BEAKER) (test code = 412) PLATELET COUNT (BEAKER) (test 185 K/CU MM 150-450 code = 756) MEAN PLATELET VOLUME (BEAKER) 9.5 fL 9.4-12.3 (test code = 754) NUCLEATED RED BLOOD CELLS 0 /100 WBC 0-0 (BEAKER) (test code = 413) NEUTROPHILS RELATIVE PERCENT 82 % (BEAKER) (test code = 429) LYMPHOCYTES RELATIVE PERCENT 7 % (BEAKER) (test code = 430) MONOCYTES RELATIVE PERCENT 8 % (BEAKER) (test code = 431) EOSINOPHILS RELATIVE PERCENT 3 % (BEAKER) (test code = 432) BASOPHILS RELATIVE PERCENT 0 % (BEAKER) (test code = 437) NEUTROPHILS ABSOLUTE COUNT 8.69 K/ L 1.56-6.13 H (BEAKER) (test code = 670) LYMPHOCYTES ABSOLUTE COUNT 0.76 K/ L 1.18-3.74 L (BEAKER) (test code = 414) MONOCYTES ABSOLUTE COUNT (BEAKER) 0.80 K/ L 0.24-0.36 H (test code = 415) EOSINOPHILS ABSOLUTE COUNT 0.31 K/ L 0.04-0.36 (BEAKER) (test code = 416) BASOPHILS ABSOLUTE COUNT (BEAKER) 0.02 K/ L 0.01-0.08 (test code = 417) IMMATURE GRANULOCYTES-RELATIVE 0.60 % 0.00-1.00 PERCENT (BEAKER) (test code = 2801) CALCIUM, [id number] 03:45:11 Test Item Value Reference Range Interpretation Comments CALCIUM IONIZED (BEAKER) (test 1.15 mmol/L 1.12-1.27 code = 698) PH, BLOOD (BEAKER) (test code = 7.38 1810) OXYGEN SATURATION, [id number] 03:45:10 Test Item Value Reference Range Interpretation Comments O2 SATURATION (MEASURED) (BEAKER) 47.1 % (test code = 1455) POCT-GLUCOSE [id number] 22:00:02 Test Item Value Reference Range Interpretation Comments POC-GLUCOSE METER 100 mg/dL 70-110 : TESTED A T [facility] 6720 (BEAKER) (test code = [place], 1538) [address]: Wheat Washer/Techni patricia ID = [id number] for LUIS ALVAREZ OXYGEN SATURATION, [id number] 13:41:45 Test Item Value Reference Range Interpretation Comments O2 SATURATION (MEASURED) (BEAKER) 55.5 % (test code = 1455) XR CHEST 1 VIEW PORTABLE / [id number] 06:50:59 [facility] 1955 Sex: FXR CHEST 1 VIEW PORTABLE / BEDSIDEINDICATION: s/p ACB surgeryCOMPARISON: Prior day's examFINDINGS: Portable frontal view of the chest. IMPRESSION:Support Lines: Central catheter tip overlies the right atrium. Bilateral chest tubes. Lungs and pleura: Unchanged diffuse interstitial thickening,representing singly or in combination, interstitial edema and/orpneumonitis. No significant pneumothorax.Heart and mediastinum: Stable contours. Stable surgical changes.Additional findings: None. Electronically Signed By: Taya Vkznhukh79/15/2023 06:53 CDTWorkstation Name: [id number] METABOLIC PANEL 2023-03-23 04:26:24 Test Item Value Reference Range Interpretation Comments SODIUM (BEAKER) 141 meq/L 136-145 (test code = 381) POTASSIUM 4.6 meq/L 3.5-5.1 (BEAKER) (test code = 379) CHLORIDE (BEAKER) 104 meq/L 98-107 (test code = 382) CO2 (BEAKER) 20 meq/L 22-29 L (test code = 355) BLOOD UREA 23 mg/dL 7-21 H NITROGEN (BEAKER) (test code = 354) CREATININE 2.74 mg/dL 0.57-1.25 H (BEAKER) (test code = 358) GLUCOSE RANDOM 111 mg/dL 70-105 H (BEAKER) (test code = 652) CALCIUM (BEAKER) 10.0 mg/dL 8.4-10.2 (test code = 697) EGFR (BEAKER) 18 Interpretatio n of eGFR (test code = mL/min/1.73 values Stage De scription 1092) sq m Result G1 Keiry l or high >=90 G2 Mildly decreased 60-89 G3a Mildl y to moderately 45-5 9 G3b Moderately to s everely 30-44 G4 Severl y decreased 15-29 G5 Kidney failure <15Reported eGF R is based on the CKD-EPI 2020 equation that d oes not use a race coefficientEsti mated GFR is not as accur ate as Creatinine Birdie snyder in predicting glom erular filtration rate . Estimated GFR is not appl icable for dialysis patien ts Wheat Washer ID - [id number] 04:03:24 Test Item Value Reference Range Interpretation Comments PHOSPHORUS (BEAKER) (test code = 4.1 mg/dL 2.3-4.7 604) Wheat Washer ID - [id number] 04:03:23 Test Item Value Reference Range Interpretation Comments MAGNESIUM (BEAKER) (test code = 2.3 mg/dL 1.6-2.6 627) Wheat Washer ID - ADMINOXYGEN SATURATION, [id number] 03:59:36 Test Item Value Reference Range Interpretation Comments O2 SATURATION (MEASURED) (BEAKER) 58.0 % (test code = 1455) [id number] 03:57:20 Test Item Value Reference Range Interpretation Comments PROTIME (BEAKER) (test 20.0 seconds 11.9-14.2 H code = 759) INR (BEAKER) (test 1.75 See_Comment [Automat ed code = 370) message] The sy stem which generated this result transmitted reference range : <=5.90. The reference range was not used to interpret this result as normal/abnormal . PARTIAL THROMBOPLASTIN 45.7 seconds 22.5-36.0 H TIME (BEAKER) (test code = 760) RECOMMENDED COUMADIN/WARFARIN INR THERAPY RANGESSTANDARD DOSE: 2.0 - 3.0 Includes: PROPHYLAXIS for venous thrombosis, systemic embolization; TREATMENT for venous thrombosis and/or pulmonary embolus.HIGH RISK: Target INR is 2.5-3.5 for patients with mechanical heart valves.CBC W/PLT COUNT & AUTO [id number] 03:43:34 Test Item Value Reference Range Interpretation Comments WHITE BLOOD CELL COUNT (BEAKER) 11.9 K/ L 3.5-10.5 H (test code = 775) RED BLOOD CELL COUNT (BEAKER) 3.29 M/ L 3.93-5.22 L (test code = 761) HEMOGLOBIN (BEAKER) (test code = 9.3 GM/DL 11.2-15.7 L 410) HEMATOCRIT (BEAKER) (test code = 30.7 % 34.1-44.9 L 411) MEAN CORPUSCULAR VOLUME (BEAKER) 93 fL 79-95 (test code = 753) MEAN CORPUSCULAR HEMOGLOBIN 28.3 pg 25.6-32.2 (BEAKER) (test code = 751) MEAN CORPUSCULAR HEMOGLOBIN CONC 30.3 GM/DL 32.2-35.5 L (BEAKER) (test code = 752) RED CELL DISTRIBUTION WIDTH 17.2 % 11.7-14.4 H (BEAKER) (test code = 412) PLATELET COUNT (BEAKER) (test 158 K/CU MM 150-450 code = 756) MEAN PLATELET VOLUME (BEAKER) 9.1 fL 9.4-12.3 L (test code = 754) NUCLEATED RED BLOOD CELLS 0 /100 WBC 0-0 (BEAKER) (test code = 413) NEUTROPHILS RELATIVE PERCENT 84 % (BEAKER) (test code = 429) LYMPHOCYTES RELATIVE PERCENT 5 % (BEAKER) (test code = 430) MONOCYTES RELATIVE PERCENT 8 % (BEAKER) (test code = 431) EOSINOPHILS RELATIVE PERCENT 3 % (BEAKER) (test code = 432) BASOPHILS RELATIVE PERCENT 0 % (BEAKER) (test code = 437) NEUTROPHILS ABSOLUTE COUNT 9.96 K/ L 1.56-6.13 H (BEAKER) (test code = 670) LYMPHOCYTES ABSOLUTE COUNT 0.57 K/ L 1.18-3.74 L (BEAKER) (test code = 414) MONOCYTES ABSOLUTE COUNT (BEAKER) 0.93 K/ L 0.24-0.36 H (test code = 415) EOSINOPHILS ABSOLUTE COUNT 0.30 K/ L 0.04-0.36 (BEAKER) (test code = 416) BASOPHILS ABSOLUTE COUNT (BEAKER) 0.02 K/ L 0.01-0.08 (test code = 417) IMMATURE GRANULOCYTES-RELATIVE 0.70 % 0.00-1.00 PERCENT (BEAKER) (test code = 2801) [id number] 22:20:05 Test Item Value Reference Range Interpretation Comments SODIUM (BEAKER) (test code = 381) 137 meq/L 136-145 Wheat Washer ID - [id number] 22:20:04 Test Item Value Reference Range Interpretation Comments POTASSIUM (BEAKER) (test code = 4.6 meq/L 3.5-5.1 379) Wheat Washer ID - [id number] 22:20:03 Test Item Value Reference Range Interpretation Comments PHOSPHORUS (BEAKER) (test code = 3.8 mg/dL 2.3-4.7 604) Wheat Washer ID - [id number] 22:20:02 Test Item Value Reference Range Interpretation Comments MAGNESIUM (BEAKER) (test code = 2.3 mg/dL 1.6-2.6 627) Wheat Washer ID - ADMINOXYGEN SATURATION, [id number] 15:35:56 Test Item Value Reference Range Interpretation Comments O2 SATURATION (MEASURED) (BEAKER) 62.9 % (test code = 1455) [id number] 15:13:31 Test Item Value Reference Range Interpretation Comments PARTIAL THROMBOPLASTIN TIME 46.9 seconds 22.5-36.0 H (BEAKER) (test code = 760) [id number] 15:12:50 Test Item Value Reference Range Interpretation Comments FIBRINOGEN LEVEL (BEAKER) (test 470 mg/dl 225-434 H code = 658) PROTHROMBIN [id number] 15:12:29 Test Item Value Reference Range Interpretation Comments PROTIME (BEAKER) 20.6 seconds 11.9-14.2 H (test code = 759) INR (BEAKER) (test 1.89 See_Comment [Automat ed message] code = 370) The system 51wan generated this result transmitted ref erence range: <=5.90. The reference range was not used to int erpret this result as normal/abnormal . RECOMMENDED COUMADIN/WARFARIN INR THERAPY RANGESSTANDARD DOSE: 2.0 - 3.0 Includes: PROPHYLAXIS for venous thrombosis, systemic embolization; TREATMENT for venous thrombosis and/or pulmonary embolus.HIGH RISK: Target INR is 2.5-3.5 for patients with mechanical heart valves.CBC W/PLT COUNT & AUTO [id number] 15:07:14 Test Item Value Reference Range Interpretation Comments WHITE BLOOD CELL COUNT (BEAKER) 9.1 K/ L 3.5-10.5 (test code = 775) RED BLOOD CELL COUNT (BEAKER) 3.01 M/ L 3.93-5.22 L (test code = 761) HEMOGLOBIN (BEAKER) (test code = 8.8 GM/DL 11.2-15.7 L 410) HEMATOCRIT (BEAKER) (test code = 27.9 % 34.1-44.9 L 411) MEAN CORPUSCULAR VOLUME (BEAKER) 93 fL 79-95 (test code = 753) MEAN CORPUSCULAR HEMOGLOBIN 29.2 pg 25.6-32.2 (BEAKER) (test code = 751) MEAN CORPUSCULAR HEMOGLOBIN CONC 31.5 GM/DL 32.2-35.5 L (BEAKER) (test code = 752) RED CELL DISTRIBUTION WIDTH 17.2 % 11.7-14.4 H (BEAKER) (test code = 412) PLATELET COUNT (BEAKER) (test 127 K/CU MM 150-450 L code = 756) MEAN PLATELET VOLUME (BEAKER) 9.5 fL 9.4-12.3 (test code = 754) NUCLEATED RED BLOOD CELLS 0 /100 WBC 0-0 (BEAKER) (test code = 413) NEUTROPHILS RELATIVE PERCENT 84 % (BEAKER) (test code = 429) LYMPHOCYTES RELATIVE PERCENT 6 % (BEAKER) (test code = 430) MONOCYTES RELATIVE PERCENT 8 % (BEAKER) (test code = 431) EOSINOPHILS RELATIVE PERCENT 2 % (BEAKER) (test code = 432) BASOPHILS RELATIVE PERCENT 0 % (BEAKER) (test code = 437) NEUTROPHILS ABSOLUTE COUNT 7.68 K/ L 1.56-6.13 H (BEAKER) (test code = 670) LYMPHOCYTES ABSOLUTE COUNT 0.50 K/ L 1.18-3.74 L (BEAKER) (test code = 414) MONOCYTES ABSOLUTE COUNT (BEAKER) 0.74 K/ L 0.24-0.36 H (test code = 415) EOSINOPHILS ABSOLUTE COUNT 0.16 K/ L 0.04-0.36 (BEAKER) (test code = 416) BASOPHILS ABSOLUTE COUNT (BEAKER) 0.01 K/ L 0.01-0.08 (test code = 417) IMMATURE GRANULOCYTES-RELATIVE 0.40 % 0.00-1.00 PERCENT (BEAKER) (test code = 2801) BASIC METABOLIC [id number] 13:07:22 Test Item Value Reference Range Interpretation Comments SODIUM (BEAKER) 138 meq/L 136-145 (test code = 381) POTASSIUM 4.7 meq/L 3.5-5.1 (BEAKER) (test code = 379) CHLORIDE (BEAKER) 104 meq/L 98-107 (test code = 382) CO2 (BEAKER) 23 meq/L 22-29 (test code = 355) BLOOD UREA 14 mg/dL 7-21 NITROGEN (BEAKER) (test code = 354) CREATININE 1.76 mg/dL 0.57-1.25 H (BEAKER) (test code = 358) GLUCOSE RANDOM 136 mg/dL 70-105 H (BEAKER) (test code = 652) CALCIUM (BEAKER) 9.7 mg/dL 8.4-10.2 (test code = 697) EGFR (BEAKER) 31 Interpretatio n of eGFR (test code = mL/min/1.73 values Stage De scription 1092) sq m Result G1 Keiry l or high >=90 G2 Mildly decreased 60-89 G3a Mildl y to moderately 45-5 9 G3b Moderately to s everely 30-44 G4 Severl y decreased 15-29 G5 Kidney failure <15Reported eGF R is based on the CKD-EPI 2020 equation that d oes not use a race coefficientEsti mated GFR is not as accur ate as Creatinine Birdie lillian in predicting glom erular filtration rate . Estimated GFR is not appl icable for dialysis patien ts Wheat Washer ID - [id number] 13:07:22 Test Item Value Reference Range Interpretation Comments MAGNESIUM (BEAKER) (test code = 2.3 mg/dL 1.6-2.6 627) Wheat Washer ID - [id number] 13:07:22 Test Item Value Reference Range Interpretation Comments PHOSPHORUS (BEAKER) (test code = 3.8 mg/dL 2.3-4.7 604) Wheat Washer ID - ADMINCALCIUM, [id number] 12:38:13 Test Item Value Reference Range Interpretation Comments CALCIUM IONIZED (BEAKER) (test 1.19 mmol/L 1.12-1.27 code = 698) PH, BLOOD (BEAKER) (test code = 7.45 1810) XR CHEST 1 VIEW PORTABLE / [id number] 07:01:33 [facility] : 1955 Sex: FXR CHEST 1 VIEW PORTABLE / BEDSIDEINDICATION: s/p ACB surgeryCOMPARISON: Prior day's examFINDINGS: Portable frontal view of the chest. IMPRESSION:Support Lines: Central catheter tip overlies the right atrium. Bilateral chest tubes. Lungs and pleura: Unchanged diffuse interstitial thickening,representing singly or in combination, interstitial edema and/orpneumonitis. No significant pneumothorax.Heart and mediastinum: Stable contours. Stable surgical changes.Additional findings: None. Electronically Signed By: Taya Phelps03/22/2023 07:03 CDTWorkstation Name: [id number] 04:35:07 Test Item Value Reference Range Interpretation Comments MAGNESIUM (BEAKER) (test code = 1.9 mg/dL 1.6-2.6 627) Wheat Washer ID - [id number] 04:35:07 Test Item Value Reference Range Interpretation Comments PHOSPHORUS (BEAKER) (test code = 3.8 mg/dL 2.3-4.7 604) Wheat Washer ID - ADMINBASIC METABOLIC [id number] 04:35:06 Test Item Value Reference Range Interpretation Comments SODIUM (BEAKER) 139 meq/L 136-145 (test code = 381) POTASSIUM 4.0 meq/L 3.5-5.1 (BEAKER) (test code = 379) CHLORIDE (BEAKER) 103 meq/L 98-107 (test code = 382) CO2 (BEAKER) 26 meq/L 22-29 (test code = 355) BLOOD UREA 11 mg/dL 7-21 NITROGEN (BEAKER) (test code = 354) CREATININE 1.26 mg/dL 0.57-1.25 H (BEAKER) (test code = 358) GLUCOSE RANDOM 92 mg/dL 70-105 (BEAKER) (test code = 652) CALCIUM (BEAKER) 9.6 mg/dL 8.4-10.2 (test code = 697) EGFR (BEAKER) 47 Interpretatio n of eGFR (test code = mL/min/1.73 values Stage De scription 1092) sq m Result G1 Keiry l or high >=90 G2 Mildly decreased 60-89 G3a Mildl y to moderately 45-5 9 G3b Moderately to s everely 30-44 G4 Severl y decreased 15-29 G5 Kidney failure <15Reported eGF R is based on the CKD-EPI 2020 equation that d oes not use a race coefficientEsti mated GFR is not as accur ate as Creatinine Birdie lillian in predicting glom erular filtration rate . Estimated GFR is not appl icable for dialysis patien ts Wheat Washer ID - ADMINCALCIUM, [id number] 04:21:42 Test Item Value Reference Range Interpretation Comments CALCIUM IONIZED (BEAKER) (test 1.21 mmol/L 1.12-1.27 code = 698) PH, BLOOD (BEAKER) (test code = 7.35 1810) OXYGEN SATURATION, [id number] 04:21:20 Test Item Value Reference Range Interpretation Comments O2 SATURATION (MEASURED) (BEAKER) 69.8 % (test code = 1455) CBC (HEMOGRAM ONLY)2023-03-22 04:12:01 Test Item Value Reference Range Interpretation Comments WHITE BLOOD CELL COUNT (BEAKER) 9.6 K/ L 3.5-10.5 (test code = 775) RED BLOOD CELL COUNT (BEAKER) 2.98 M/ L 3.93-5.22 L (test code = 761) HEMOGLOBIN (BEAKER) (test code = 8.5 GM/DL 11.2-15.7 L 410) HEMATOCRIT (BEAKER) (test code = 27.5 % 34.1-44.9 L 411) MEAN CORPUSCULAR VOLUME (BEAKER) 92 fL 79-95 (test code = 753) MEAN CORPUSCULAR HEMOGLOBIN 28.5 pg 25.6-32.2 (BEAKER) (test code = 751) MEAN CORPUSCULAR HEMOGLOBIN CONC 30.9 GM/DL 32.2-35.5 L (BEAKER) (test code = 752) RED CELL DISTRIBUTION WIDTH 17.4 % 11.7-14.4 H (BEAKER) (test code = 412) PLATELET COUNT (BEAKER) (test 116 K/CU MM 150-450 L code = 756) MEAN PLATELET VOLUME (BEAKER) 9.8 fL 9.4-12.3 (test code = 754) NUCLEATED RED BLOOD CELLS 0 /100 WBC 0-0 (BEAKER) (test code = 413) [id number] 00:50:34 Test Item Value Reference Range Interpretation Comments PHOSPHORUS (BEAKER) (test code = 2.0 mg/dL 2.3-4.7 L 604) Wheat Washer ID - ADMINBASIC METABOLIC [id number] 00:50:33 Test Item Value Reference Range Interpretation Comments SODIUM (BEAKER) 137 meq/L 136-145 (test code = 381) POTASSIUM 4.0 meq/L 3.5-5.1 (BEAKER) (test code = 379) CHLORIDE (BEAKER) 104 meq/L 98-107 (test code = 382) CO2 (BEAKER) 23 meq/L 22-29 (test code = 355) BLOOD UREA 13 mg/dL 7-21 NITROGEN (BEAKER) (test code = 354) CREATININE 1.55 mg/dL 0.57-1.25 H (BEAKER) (test code = 358) GLUCOSE RANDOM 101 mg/dL 70-105 (BEAKER) (test code = 652) CALCIUM (BEAKER) 9.3 mg/dL 8.4-10.2 (test code = 697) EGFR (BEAKER) 36 Interpretatio n of eGFR (test code = mL/min/1.73 values Stage D escription 1092) sq m Result G1 Keiyr l or high >=90 G2 Mildly decreased 60-89 G3a Mildl y to moderately 45-5 9 G3b Moderately to s everely 30-44 G4 Severl y decreased 15-29 G5 Kidney failure <15Reported eGF R is based on the CKD-EPI 2020 equation that d oes not use a race coefficientEsti mated GFR is not as accur ate as Creatinine Birdie lillian in predicting glom erular filtration rate . Estimated GFR is not appl icable for dialysis patien ts Wheat Washer ID - [id number] 00:50:33 Test Item Value Reference Range Interpretation Comments MAGNESIUM (BEAKER) (test code = 2.0 mg/dL 1.6-2.6 627) Wheat Washer ID - ADMINCALCIUM, [id number] 00:09:09 Test Item Value Reference Range Interpretation Comments CALCIUM IONIZED (BEAKER) (test 1.26 mmol/L 1.12-1.27 code = 698) PH, BLOOD (BEAKER) (test code = 7.41 1810) [id number] 21:42:55 Test Item Value Reference Range Interpretation Comments SODIUM (BEAKER) (test code = 381) 138 meq/L 136-145 Wheat Washer ID - [id number] 21:42:50 Test Item Value Reference Range Interpretation Comments PHOSPHORUS (BEAKER) (test code = 2.5 mg/dL 2.3-4.7 604) Wheat Washer ID - [id number] 21:42:50 Test Item Value Reference Range Interpretation Comments POTASSIUM (BEAKER) (test code = 4.4 meq/L 3.5-5.1 379) Wheat Washer ID - [id number] 21:42:49 Test Item Value Reference Range Interpretation Comments MAGNESIUM (BEAKER) (test code = 2.2 mg/dL 1.6-2.6 627) Wheat Washer ID - ADMINPH, [id number] 21:28:12 Test Item Value Reference Range Interpretation Comments PH ARTERIAL (BEAKER) (test code = 383) 7.41 7.35-7.45 OXYGEN SATURATION, [id number] 09:32:45 Test Item Value Reference Range Interpretation Comments O2 SATURATION (MEASURED) (BEAKER) 57.3 % (test code = 1455) [id number] 09:21:00 Test Item Value Reference Range Interpretation Comments PHOSPHORUS (BEAKER) (test code = 3.3 mg/dL 2.3-4.7 604) Wheat Washer ID - [id number] 09:20:59 Test Item Value Reference Range Interpretation Comments MAGNESIUM (BEAKER) (test code = 2.3 mg/dL 1.6-2.6 627) Wheat Washer ID - ADMINPH, [id number] 09:05:58 Test Item Value Reference Range Interpretation Comments PH ARTERIAL (BEAKER) (test code = 383) 7.42 7.35-7.45 HEPATIC FUNCTION [id number] 08:20:27 Test Item Value Reference Range Interpretation Comments TOTAL PROTEIN (BEAKER) (test code = 6.3 gm/dL 6.0-8.3 770) ALBUMIN (BEAKER) (test code = 1145) 3.4 g/dL 3.5-5.0 L BILIRUBIN TOTAL (BEAKER) (test code 0.6 mg/dL 0.2-1.2 = 377) BILIRUBIN DIRECT (BEAKER) (test 0.4 mg/dL 0.1-0.5 code = 706) ALKALINE PHOSPHATASE (BEAKER) (test 97 U/L 40-150 code = 346) AST (SGOT) (BEAKER) (test code = 12 U/L 5-34 353) ALT (SGPT) (BEAKER) (test code = < U/L 6-55 L 347) Wheat Washer ID - ADMINXR CHEST 1 VIEW PORTABLE / [id number] 06:35:30 [facility] 1955 Sex: FXR CHEST 1 VIEW PORTABLE / BEDSIDEINDICATION: s/p ACB surgeryCOMPARISON: Prior day's examFINDINGS: Portable frontal view of the chest. IMPRESSION:Support Lines: Central catheter tip overlies the right atrium. Bilateral chest tubes. Lungs and pleura: Unchanged diffuse interstitial thickening,representing singly or in combination, interstitial edema and/orpneumonitis. No significant pneumothorax.Heart and mediastinum: Stable contours. Stable surgical changes.Additional findings: None. Electronically Signed By: Taya Phelps03/21/2023 06:37 CDTWorkstation Name: [id number] METABOLIC PANEL 2023-03-21 06:28:11 Test Item Value Reference Range Interpretation Comments SODIUM (BEAKER) 138 meq/L 136-145 (test code = 381) POTASSIUM 4.4 meq/L 3.5-5.1 (BEAKER) (test code = 379) CHLORIDE (BEAKER) 103 meq/L 98-107 (test code = 382) CO2 (BEAKER) 23 meq/L 22-29 (test code = 355) BLOOD UREA 13 mg/dL 7-21 NITROGEN (BEAKER) (test code = 354) CREATININE 1.61 mg/dL 0.57-1.25 H (BEAKER) (test code = 358) GLUCOSE RANDOM 108 mg/dL 70-105 H (BEAKER) (test code = 652) CALCIUM (BEAKER) 9.7 mg/dL 8.4-10.2 (test code = 697) EGFR (BEAKER) 35 Interpretatio n of eGFR (test code = mL/min/1.73 values Stage De scription 1092) sq m Result G1 Keiry l or high >=90 G2 Mildly decreased 60-89 G3a Mildl y to moderately 45-5 9 G3b Moderately to s everely 30-44 G4 Severl y decreased 15-29 G5 Kidney failure <15Reported eGF R is based on the CKD-EPI 2020 equation that d oes not use a race coefficientEsti mated GFR is not as accur ate as Creatinine Birdie lillian in predicting glom erular filtration rate . Estimated GFR is not appl icable for dialysis patien ts Wheat Washer ID - [id number] 02:33:05 Test Item Value Reference Range Interpretation Comments MAGNESIUM (BEAKER) (test code = 2.2 mg/dL 1.6-2.6 627) Wheat Washer ID - CHELLY [id number] 02:33:05 Test Item Value Reference Range Interpretation Comments PHOSPHORUS (BEAKER) (test code = 3.2 mg/dL 2.3-4.7 604) Wheat Washer ID - CHELLY BBASIC METABOLIC [id number] 02:33:04 Test Item Value Reference Range Interpretation Comments SODIUM (BEAKER) 140 meq/L 136-145 (test code = 381) POTASSIUM 4.3 meq/L 3.5-5.1 (BEAKER) (test code = 379) CHLORIDE (BEAKER) 105 meq/L 98-107 (test code = 382) CO2 (BEAKER) 22 meq/L 22-29 (test code = 355) BLOOD UREA 14 mg/dL 7-21 NITROGEN (BEAKER) (test code = 354) CREATININE 1.67 mg/dL 0.57-1.25 H (BEAKER) (test code = 358) GLUCOSE RANDOM 108 mg/dL 70-105 H (BEAKER) (test code = 652) CALCIUM (BEAKER) 9.8 mg/dL 8.4-10.2 (test code = 697) EGFR (BEAKER) 33 Interpretatio n of eGFR (test code = mL/min/1.73 values Stage De scription 1092) sq m Result G1 Keiry l or high >=90 G2 Mildly decreased 60-89 G3a Mildl y to moderately 45-5 9 G3b Moderately to s everely 30-44 G4 Severl y decreased 15-29 G5 Kidney failure <15Reported eGF R is based on the CKD-EPI 2020 equation that d oes not use a race coefficientEsti mated GFR is not as accur ate as Creatinine Birdie lillian in predicting glom erular filtration rate . Estimated GFR is not appl icable for dialysis patien ts Wheat Washer ID - CHELLY BCBC (HEMOGRAM ONLY)2023-03-21 02:12:38 Test Item Value Reference Range Interpretation Comments WHITE BLOOD CELL COUNT (BEAKER) 10.0 K/ L 3.5-10.5 (test code = 775) RED BLOOD CELL COUNT (BEAKER) 2.83 M/ L 3.93-5.22 L (test code = 761) HEMOGLOBIN (BEAKER) (test code = 8.2 GM/DL 11.2-15.7 L 410) HEMATOCRIT (BEAKER) (test code = 26.6 % 34.1-44.9 L 411) MEAN CORPUSCULAR VOLUME (BEAKER) 94 fL 79-95 (test code = 753) MEAN CORPUSCULAR HEMOGLOBIN 29.0 pg 25.6-32.2 (BEAKER) (test code = 751) MEAN CORPUSCULAR HEMOGLOBIN CONC 30.8 GM/DL 32.2-35.5 L (BEAKER) (test code = 752) RED CELL DISTRIBUTION WIDTH 18.0 % 11.7-14.4 H (BEAKER) (test code = 412) PLATELET COUNT (BEAKER) (test code 94 K/CU MM 150-450 L = 756) MEAN PLATELET VOLUME (BEAKER) 9.9 fL 9.4-12.3 (test code = 754) NUCLEATED RED BLOOD CELLS (BEAKER) 0 /100 WBC 0-0 (test code = 413) OXYGEN SATURATION, [id number] 02:11:39 Test Item Value Reference Range Interpretation Comments O2 SATURATION (MEASURED) (BEAKER) 74.2 % (test code = 1455) BLOOD GAS, [id number] 02:10:18 Test Item Value Reference Range Interpretation Comments PH ARTERIAL (BEAKER) (test code = 7.39 7.35-7.45 383) PCO2 ARTERIAL (BEAKER) (test code 38 mm Hg 35-45 = 384) PO2 ARTERIAL (BEAKER) (test code 106 mm Hg 80-90 H = 385) O2 SATURATION ARTERIAL (BEAKER) 97.9 % 96.0-97.0 H (test code = 386) HCO3 ARTERIAL (BEAKER) (test code 23 mmol/L 21-29 = 388) BASE EXCESS ARTERIAL (BEAKER) -1.9 mmol/L -2.0-3.0 (test code = 387) PATIENT TEMPERATURE (BEAKER) 36.5 (test code = 1818) FIO2 (BEAKER) (test code = 1819) 28.0 CALCIUM, [id number] 02:10:18 Test Item Value Reference Range Interpretation Comments CALCIUM IONIZED (BEAKER) (test 1.28 mmol/L 1.12-1.27 H code = 698) PH, BLOOD (BEAKER) (test code = 7.39 1810) [id number] 00:08:06 Test Item Value Reference Range Interpretation Comments POTASSIUM (BEAKER) (test code = 4.2 meq/L 3.5-5.1 379) Wheat Washer ID - [id number] 19:57:56 Test Item Value Reference Range Interpretation Comments SODIUM (BEAKER) (test code = 381) 138 meq/L 136-145 Wheat Washer ID - CHELLY [id number] 19:57:55 Test Item Value Reference Range Interpretation Comments POTASSIUM (BEAKER) (test code = 4.5 meq/L 3.5-5.1 379) Wheat Washer ID - CHELLY [id number] 19:57:54 Test Item Value Reference Range Interpretation Comments MAGNESIUM (BEAKER) (test code = 2.1 mg/dL 1.6-2.6 627) Wheat Washer ID - CHELLY [id number] 19:57:54 Test Item Value Reference Range Interpretation Comments PHOSPHORUS (BEAKER) (test code = 3.4 mg/dL 2.3-4.7 604) Wheat Washer ID - CHELLY BPH, [id number] 19:39:29 Test Item Value Reference Range Interpretation Comments PH ARTERIAL (BEAKER) (test code = 383) 7.37 7.35-7.45 SARS-COV2/RT-PCR ([facility])2023-03-20 16:25:53 Test Item Value Reference Range Interpretation Comments SARS-COV2/RT-PCR Negative Negative The SARS-Co V-2 target (test code = nucleic acids a re not [id number]) detected in thi s specimen. Negative result s do not preclude SARS-C oV-2 infection and s hould not be used as the madalyn e basis for patient managem ent decisions. Nega tive results must be combine d with clinical observ ations, patient history , and epidemiological information. A false negativ e result may occur if a spec imen is improperly natan ected, transported or handled. This SARS CoV-2 test is a rapid, real-time RT-PC R test intended for th e qualitative detection of nu cleic acid from SARS-CoV-2 in a nasopharyngeal swab specimen collected from individuals suspected of CO VID-19 by their healthcar e provider. This test has been authorized by FDA under an EUA for use by authorized laboratories. This test is only authorized for the duration of the declaration that circumstances exist justifying the authorization of emergency use of in vitro diagnostic tests for detection and/or diagnosis of COVID-19 under Section 564(b)(1) of the Federal Food, Drug and Cosmetic Act, 21 U.S.C. 360bbb-3(b)(1), unless the authorization is terminated or revoked sooner. Fact Sheet for Healthcare Providers: https://www.[employer] m/Documents/Xpert%20Xpress%20SARS%20CoV-2/Fact%20Sheets/302-5322%31HSWO-KSS-2%20 HEALTHCARE%20PROVIDERS%20FACT%20SHEET.pdf Fact Sheet for Healthcare Patients: https://www.Zipano/Documents/Xpert%20Xp ress%20SARS%20CoV-2/Fact%20Sheets/302-0121%37SJIF-IGK-5%20PATIENT%20FACT%20SHEET .[id number] 16:13:52 Test Item Value Reference Range Interpretation Comments POTASSIUM (BEAKER) (test code = 4.4 meq/L 3.5-5.1 379) Wheat Washer ID - CHELLY [id number] 16:13:51 Test Item Value Reference Range Interpretation Comments PHOSPHORUS (BEAKER) (test code = 2.4 mg/dL 2.3-4.7 604) Wheat Washer ID - CHELLY [id number] 16:13:50 Test Item Value Reference Range Interpretation Comments MAGNESIUM (BEAKER) (test code = 2.1 mg/dL 1.6-2.6 627) Wheat Washer ID - CHELLY BBLOOD GAS, [id number] 15:59:47 Test Item Value Reference Range Interpretation Comments PH ARTERIAL (BEAKER) (test code = 7.41 7.35-7.45 383) PCO2 ARTERIAL (BEAKER) (test code 37 mm Hg 35-45 = 384) PO2 ARTERIAL (BEAKER) (test code 134 mm Hg 80-90 H = 385) O2 SATURATION ARTERIAL (BEAKER) 98.8 % 96.0-97.0 H (test code = 386) HCO3 ARTERIAL (BEAKER) (test code 23 mmol/L 21-29 = 388) BASE EXCESS ARTERIAL (BEAKER) -1.8 mmol/L -2.0-3.0 (test code = 387) PATIENT TEMPERATURE (BEAKER) 35.6 (test code = 1818) FIO2 (BEAKER) (test code = 1819) 80.0 HGB/HCT (H&H) - STAT [id number] 15:59:47 Test Item Value Reference Range Interpretation Comments HEMOGLOBIN (BEAKER) (test code = 9.3 GM/DL 12.0-15.0 L 410) HEMATOCRIT (BEAKER) (test code = 27.0 % 36.0-45.0 L 411) SODIUM NA-STAT [id number] 15:58:29 Test Item Value Reference Range Interpretation Comments SODIUM (BEAKER) (test code = 381) 136 meq/L 136-145 POTASSIUM-STAT [id number] 15:58:29 Test Item Value Reference Range Interpretation Comments POTASSIUM (BEAKER) (test code = 4.2 meq/L 3.6-5.5 379) GLUCOSE-STAT [id number] 15:58:28 Test Item Value Reference Range Interpretation Comments GLUCOSE RANDOM (BEAKER) (test code = 98 mg/dL 70-110 652) OXYGEN SATURATION, [id number] 15:58:09 Test Item Value Reference Range Interpretation Comments O2 SATURATION (MEASURED) (BEAKER) 63.6 % (test code = 1455) [id number] 12:33:52 Test Item Value Reference Range Interpretation Comments POTASSIUM (BEAKER) (test code = 4.4 meq/L 3.5-5.1 379) Wheat Washer ID - CHELLY [id number] 12:33:51 Test Item Value Reference Range Interpretation Comments PHOSPHORUS (BEAKER) (test code = 3.0 mg/dL 2.3-4.7 604) Wheat Washer ID - CHELLY [id number] 12:33:50 Test Item Value Reference Range Interpretation Comments MAGNESIUM (BEAKER) (test code = 2.2 mg/dL 1.6-2.6 627) Wheat Washer ID - CHELLY BCALCIUM, [id number] 12:07:26 Test Item Value Reference Range Interpretation Comments CALCIUM IONIZED (BEAKER) (test 1.31 mmol/L 1.12-1.27 H code = 698) PH, BLOOD (BEAKER) (test code = 7.37 1810) HGB/HCT (H&H) - STAT [id number] 12:06:50 Test Item Value Reference Range Interpretation Comments HEMOGLOBIN (BEAKER) (test code = 8.5 GM/DL 12.0-15.0 L 410) HEMATOCRIT (BEAKER) (test code = 25.0 % 36.0-45.0 L 411) BLOOD GAS, [id number] 12:06:49 Test Item Value Reference Range Interpretation Comments PH ARTERIAL (BEAKER) (test code = 7.39 7.35-7.45 383) PCO2 ARTERIAL (BEAKER) (test code 37 mm Hg 35-45 = 384) PO2 ARTERIAL (BEAKER) (test code 139 mm Hg 80-90 H = 385) O2 SATURATION ARTERIAL (BEAKER) 98.8 % 96.0-97.0 H (test code = 386) HCO3 ARTERIAL (BEAKER) (test code 22 mmol/L 21-29 = 388) BASE EXCESS ARTERIAL (BEAKER) -3.1 mmol/L -2.0-3.0 L (test code = 387) PATIENT TEMPERATURE (BEAKER) 35.6 (test code = 1818) FIO2 (BEAKER) (test code = 1819) 44.0 POTASSIUM-STAT [id number] 12:04:41 Test Item Value Reference Range Interpretation Comments POTASSIUM (BEAKER) (test code = 4.2 meq/L 3.6-5.5 379) GLUCOSE-STAT [id number] 12:04:39 Test Item Value Reference Range Interpretation Comments GLUCOSE RANDOM (BEAKER) (test code = 97 mg/dL 70-110 652) SODIUM NA-STAT [id number] 12:04:39 Test Item Value Reference Range Interpretation Comments SODIUM (BEAKER) (test code = 381) 137 meq/L 136-145 MISCELLANEOUS LAB [id number] 07:32:06 Test Item Value Reference Range Interpretation Comments SCAN RESULT (test code = See scanned report. [id number]) XR CHEST 1 VIEW PORTABLE / [id number] 07:03:43 [facility] : 1955 Sex: FXR CHEST 1 VIEW PORTABLE / BEDSIDEINDICATION: s/p ACB surgeryCOMPARISON: Prior day's examFINDINGS: Portable frontal view of the chest. IMPRESSION:Support Lines: Central catheter tip overlies the right atrium. Secor-Ganztip overlies the pulmonary outflow tract. Bilateral chest tubes. Lungs and pleura: Unchanged diffuse interstitial thickening,representing singly or in combination, interstitial edema and/orpneumonitis. No significant pneumothorax.Heart and mediastinum: Stable contours. Stable surgical changes.Additional findings: None. Electronically Signed By: Taya Phelps03/20/2023 07:05 CDTWorkstation Name: [id number] 06:45:00 Test Item Value Reference Range Interpretation Comments MAGNESIUM (BEAKER) (test code = 2.3 mg/dL 1.6-2.6 627) Wheat Washer ID Gali JOSEPH [id number] 06:45:00 Test Item Value Reference Range Interpretation Comments PHOSPHORUS (BEAKER) (test code = 3.4 mg/dL 2.3-4.7 604) Wheat Washer ID Gali JOSEPH WBASIC METABOLIC [id number] 06:44:59 Test Item Value Reference Range Interpretation Comments SODIUM (BEAKER) 139 meq/L 136-145 (test code = 381) POTASSIUM 4.5 meq/L 3.5-5.1 (BEAKER) (test code = 379) CHLORIDE (BEAKER) 104 meq/L 98-107 (test code = 382) CO2 (BEAKER) 21 meq/L 22-29 L (test code = 355) BLOOD UREA 18 mg/dL 7-21 NITROGEN (BEAKER) (test code = 354) CREATININE 1.83 mg/dL 0.57-1.25 H (BEAKER) (test code = 358) GLUCOSE RANDOM 94 mg/dL 70-105 (BEAKER) (test code = 652) CALCIUM (BEAKER) 9.6 mg/dL 8.4-10.2 (test code = 697) EGFR (BEAKER) 30 Interpretatio n of eGFR (test code = mL/min/1.73 values Stage De scription 1092) sq m Result G1 Keiry l or high >=90 G2 Mildly decreased 60-89 G3a Mildl y to moderately 45-5 9 G3b Moderately to s everely 30-44 G4 Severl y decreased 15-29 G5 Kidney failure <15Reported eGF R is based on the CKD-EPI 2020 equation that d oes not use a race coefficientEsti mated GFR is not as accur ate as Creatinine Birdie snyder in predicting glom erular filtration rate . Estimated GFR is not appl icable for dialysis patien ts Wheat Washer ID Gali JOSEPH WHGB/HCT (H&H) - STAT [id number] 06:08:57 Test Item Value Reference Range Interpretation Comments HEMOGLOBIN (BEAKER) (test code = 8.8 GM/DL 12.0-15.0 L 410) HEMATOCRIT (BEAKER) (test code = 26.0 % 36.0-45.0 L 411) BLOOD GAS, [id number] 06:08:56 Test Item Value Reference Range Interpretation Comments PH ARTERIAL (BEAKER) (test code = 7.37 7.35-7.45 383) PCO2 ARTERIAL (BEAKER) (test code 37 mm Hg 35-45 = 384) PO2 ARTERIAL (BEAKER) (test code 147 mm Hg 80-90 H = 385) O2 SATURATION ARTERIAL (BEAKER) 98.9 % 96.0-97.0 H (test code = 386) HCO3 ARTERIAL (BEAKER) (test code 21 mmol/L 21-29 = 388) BASE EXCESS ARTERIAL (BEAKER) -4.3 mmol/L -2.0-3.0 L (test code = 387) PATIENT TEMPERATURE (BEAKER) 36.5 (test code = 1818) FIO2 (BEAKER) (test code = 1819) 36.0 POTASSIUM-STAT [id number] 06:06:56 Test Item Value Reference Range Interpretation Comments POTASSIUM (BEAKER) (test code = 4.3 meq/L 3.6-5.5 379) GLUCOSE-STAT [id number] 06:06:48 Test Item Value Reference Range Interpretation Comments GLUCOSE RANDOM (BEAKER) (test code = 99 mg/dL 70-110 652) SODIUM NA-STAT [id number] 06:06:48 Test Item Value Reference Range Interpretation Comments SODIUM (BEAKER) (test code = 381) 136 meq/L 136-145 PH, [id number] 06:06:47 Test Item Value Reference Range Interpretation Comments PH ARTERIAL (BEAKER) (test code = 383) 7.37 7.35-7.45 [id number] 02:49:09 Test Item Value Reference Range Interpretation Comments PHOSPHORUS (BEAKER) (test code = 3.2 mg/dL 2.3-4.7 604) Wheat Washer ID - JAKE WBASIC METABOLIC [id number] 02:49:08 Test Item Value Reference Range Interpretation Comments SODIUM (BEAKER) 138 meq/L 136-145 (test code = 381) POTASSIUM 4.3 meq/L 3.5-5.1 (BEAKER) (test code = 379) CHLORIDE (BEAKER) 104 meq/L 98-107 (test code = 382) CO2 (BEAKER) 21 meq/L 22-29 L (test code = 355) BLOOD UREA 19 mg/dL 7-21 NITROGEN (BEAKER) (test code = 354) CREATININE 1.80 mg/dL 0.57-1.25 H (BEAKER) (test code = 358) GLUCOSE RANDOM 78 mg/dL 70-105 (BEAKER) (test code = 652) CALCIUM (BEAKER) 9.5 mg/dL 8.4-10.2 (test code = 697) EGFR (BEAKER) 30 Interpretatio n of eGFR (test code = mL/min/1.73 values Stage De scription 1092) sq m Result G1 Norm al or high >=90 G2 Mildly decreased 60-89 G3a Mildl y to moderately 45-5 9 G3b Moderately to s everely 30-44 G4 Severl y decreased 15-29 G5 Kidne y failure <15Reported eGF R is based on the CKD-EPI 2020 equation that d oes not use a race coefficientEsti mated GFR is not as accur ate as Creatinine Birdie lillian in predicting glom erular filtration rate . Estimated GFR is not appl icable for dialysis patien ts Wheat Washer ID - JAKE [id number] 02:49:08 Test Item Value Reference Range Interpretation Comments MAGNESIUM (BEAKER) (test code = 2.1 mg/dL 1.6-2.6 627) Wheat Washer ID Gali JOSEPH [id number] 02:38:04 Test Item Value Reference Range Interpretation Comments PARTIAL THROMBOPLASTIN TIME 43.4 seconds 22.5-36.0 H (BEAKER) (test code = 760) OXYGEN SATURATION, [id number] 02:33:22 Test Item Value Reference Range Interpretation Comments O2 SATURATION (MEASURED) (BEAKER) 69.3 % (test code = 1455) BLOOD GAS, [id number] 02:25:08 Test Item Value Reference Range Interpretation Comments PH ARTERIAL (BEAKER) (test code = 7.38 7.35-7.45 383) PCO2 ARTERIAL (BEAKER) (test code 38 mm Hg 35-45 = 384) PO2 ARTERIAL (BEAKER) (test code 130 mm Hg 80-90 H = 385) O2 SATURATION ARTERIAL (BEAKER) 98.6 % 96.0-97.0 H (test code = 386) HCO3 ARTERIAL (BEAKER) (test code 22 mmol/L 21-29 = 388) BASE EXCESS ARTERIAL (BEAKER) -2.9 mmol/L -2.0-3.0 L (test code = 387) PATIENT TEMPERATURE (BEAKER) 35.7 (test code = 1818) FIO2 (BEAKER) (test code = 1819) 36.0 CALCIUM, [id number] 02:24:43 Test Item Value Reference Range Interpretation Comments CALCIUM IONIZED (BEAKER) (test 1.26 mmol/L 1.12-1.27 code = 698) PH, BLOOD (BEAKER) (test code = 7.36 1810) CBC (HEMOGRAM ONLY)[id number] 02:23:01 Test Item Value Reference Range Interpretation Comments WHITE BLOOD CELL COUNT (BEAKER) 10.1 K/ L 3.5-10.5 (test code = 775) RED BLOOD CELL COUNT (BEAKER) 2.68 M/ L 3.93-5.22 L (test code = 761) HEMOGLOBIN (BEAKER) (test code = 7.7 GM/DL 11.2-15.7 L 410) HEMATOCRIT (BEAKER) (test code = 25.3 % 34.1-44.9 L 411) MEAN CORPUSCULAR VOLUME (BEAKER) 94 fL 79-95 (test code = 753) MEAN CORPUSCULAR HEMOGLOBIN 28.7 pg 25.6-32.2 (BEAKER) (test code = 751) MEAN CORPUSCULAR HEMOGLOBIN CONC 30.4 GM/DL 32.2-35.5 L (BEAKER) (test code = 752) RED CELL DISTRIBUTION WIDTH 18.4 % 11.7-14.4 H (BEAKER) (test code = 412) PLATELET COUNT (BEAKER) (test code 88 K/CU MM 150-450 L = 756) MEAN PLATELET VOLUME (BEAKER) 10.6 fL 9.4-12.3 (test code = 754) NUCLEATED RED BLOOD CELLS (BEAKER) 0 /100 WBC 0-0 (test code = 413) [id number] 00:49:47 Test Item Value Reference Range Interpretation Comments PARTIAL THROMBOPLASTIN 123.6 seconds 22.5-36.0 H Rele ase result TIME (BEAKER) (test per B#45 5630 code = 760) [id number] 00:27:11 Test Item Value Reference Range Interpretation Comments POTASSIUM (BEAKER) (test code = 4.4 meq/L 3.5-5.1 379) Wheat Washer ID - [id number] 00:15:30 Test Item Value Reference Range Interpretation Comments PARTIAL THROMBOPLASTIN TIME 39.2 seconds 22.5-36.0 H (BEAKER) (test code = 760) HGB/HCT (H&H) - STAT [id number] 23:57:54 Test Item Value Reference Range Interpretation Comments HEMOGLOBIN (BEAKER) (test code = 8.9 GM/DL 12.0-15.0 L 410) HEMATOCRIT (BEAKER) (test code = 26.0 % 36.0-45.0 L 411) BLOOD GAS, [id number] 23:57:53 Test Item Value Reference Range Interpretation Comments PH ARTERIAL (BEAKER) (test code = 7.37 7.35-7.45 383) PCO2 ARTERIAL (BEAKER) (test code 40 mm Hg 35-45 = 384) PO2 ARTERIAL (BEAKER) (test code 178 mm Hg 80-90 H = 385) O2 SATURATION ARTERIAL (BEAKER) 99.2 % 96.0-97.0 H (test code = 386) HCO3 ARTERIAL (BEAKER) (test code 23 mmol/L 21-29 = 388) BASE EXCESS ARTERIAL (BEAKER) -2.9 mmol/L -2.0-3.0 L (test code = 387) PATIENT TEMPERATURE (BEAKER) 35.6 (test code = 1818) FIO2 (BEAKER) (test code = 1819) 36.0 POTASSIUM-STAT [id number] 23:57:11 Test Item Value Reference Range Interpretation Comments POTASSIUM (BEAKER) (test code = 4.3 meq/L 3.6-5.5 379) SODIUM NA-STAT [id number] 23:57:06 Test Item Value Reference Range Interpretation Comments SODIUM (BEAKER) (test code = 381) 137 meq/L 136-145 GLUCOSE-STAT [id number] 23:57:05 Test Item Value Reference Range Interpretation Comments GLUCOSE RANDOM (BEAKER) (test code = 77 mg/dL 70-110 652) [id number] 19:45:56 Test Item Value Reference Range Interpretation Comments SODIUM (BEAKER) (test code = 381) 137 meq/L 136-145 Wheat Washer ID - EMLACTIC ACID, [id number] 17:37:17 Test Item Value Reference Range Interpretation Comments LACTATE BLOOD ARTERIAL (2) 0.6 mmol/L 0.5-2.0 (BEAKER) (test code = 2874) Wheat Washer ID - EMHGB/HCT (H&H) - STAT [id number] 16:39:49 Test Item Value Reference Range Interpretation Comments HEMOGLOBIN (BEAKER) (test code = 7.2 GM/DL 12.0-15.0 L 410) HEMATOCRIT (BEAKER) (test code = 21.0 % 36.0-45.0 L 411) BLOOD GAS, [id number] 16:39:48 Test Item Value Reference Range Interpretation Comments PH ARTERIAL (BEAKER) (test code = 7.31 7.35-7.45 L 383) PCO2 ARTERIAL (BEAKER) (test code 38 mm Hg 35-45 = 384) PO2 ARTERIAL (BEAKER) (test code 152 mm Hg 80-90 H = 385) O2 SATURATION ARTERIAL (BEAKER) 98.8 % 96.0-97.0 H (test code = 386) HCO3 ARTERIAL (BEAKER) (test code 19 mmol/L 21-29 L = 388) BASE EXCESS ARTERIAL (BEAKER) -7.0 mmol/L -2.0-3.0 L (test code = 387) PATIENT TEMPERATURE (BEAKER) 35.9 (test code = 1818) FIO2 (BEAKER) (test code = 1819) 24.0 OXYGEN SATURATION, [id number] 16:39:04 Test Item Value Reference Range Interpretation Comments O2 SATURATION (MEASURED) (BEAKER) 72.4 % (test code = 1455) CALCIUM, [id number] 16:36:32 Test Item Value Reference Range Interpretation Comments CALCIUM IONIZED (BEAKER) (test 1.26 mmol/L 1.12-1.27 code = 698) PH, BLOOD (BEAKER) (test code = 7.30 1810) POTASSIUM-STAT [id number] 16:35:53 Test Item Value Reference Range Interpretation Comments POTASSIUM (BEAKER) (test code = 4.6 meq/L 3.6-5.5 379) SODIUM NA-STAT [id number] 16:35:52 Test Item Value Reference Range Interpretation Comments SODIUM (BEAKER) (test code = 381) 135 meq/L 136-145 L GLUCOSE-STAT [id number] 16:35:47 Test Item Value Reference Range Interpretation Comments GLUCOSE RANDOM (BEAKER) (test code 124 mg/dL 70-110 H = 652) [id number] 16:10:37 Test Item Value Reference Range Interpretation Comments POTASSIUM (BEAKER) (test code = 4.7 meq/L 3.5-5.1 379) Wheat Washer ID - [id number] 16:10:36 Test Item Value Reference Range Interpretation Comments PHOSPHORUS (BEAKER) (test code = 4.3 mg/dL 2.3-4.7 604) Wheat Washer ID - [id number] 16:10:35 Test Item Value Reference Range Interpretation Comments MAGNESIUM (BEAKER) (test code = 2.2 mg/dL 1.6-2.6 627) Wheat Washer ID - [id number] 16:01:22 Test Item Value Reference Range Interpretation Comments PARTIAL THROMBOPLASTIN TIME 39.8 seconds 22.5-36.0 H (BEAKER) (test code = 760) [id number] 12:47:31 Test Item Value Reference Range Interpretation Comments PHOSPHORUS (BEAKER) (test code = 4.4 mg/dL 2.3-4.7 604) Wheat Washer ID - [id number] 12:47:31 Test Item Value Reference Range Interpretation Comments POTASSIUM (BEAKER) (test code = 4.6 meq/L 3.5-5.1 379) Wheat Washer ID - [id number] 12:47:30 Test Item Value Reference Range Interpretation Comments MAGNESIUM (BEAKER) (test code = 2.2 mg/dL 1.6-2.6 627) Wheat Washer ID - ADMINHEPARIN [id number] 12:42:26 Test Item Value Reference Range Interpretation Comments HEPARIN ANTIBODY (BEAKER) (test code Negative Negative = 646) HEPARIN ANTIBODY OD (BEAKER) (test 0.112 <0.400 code = 2659) 4T TOTAL SCORE (BEAKER) (test code = 4 4278) SODIUM NA-STAT [id number] 12:37:39 Test Item Value Reference Range Interpretation Comments SODIUM (BEAKER) (test code = 381) 134 meq/L 136-145 L HGB/HCT (H&H) - STAT [id number] 12:37:01 Test Item Value Reference Range Interpretation Comments HEMOGLOBIN (BEAKER) (test code = 7.7 GM/DL 12.0-15.0 L 410) HEMATOCRIT (BEAKER) (test code = 23.0 % 36.0-45.0 L 411) BLOOD GAS, [id number] 12:36:33 Test Item Value Reference Range Interpretation Comments PH ARTERIAL (BEAKER) (test code = 7.37 7.35-7.45 383) PCO2 ARTERIAL (BEAKER) (test code 37 mm Hg 35-45 = 384) PO2 ARTERIAL (BEAKER) (test code 149 mm Hg 80-90 H = 385) O2 SATURATION ARTERIAL (BEAKER) 98.9 % 96.0-97.0 H (test code = 386) HCO3 ARTERIAL (BEAKER) (test code 22 mmol/L 21-29 = 388) BASE EXCESS ARTERIAL (BEAKER) -3.5 mmol/L -2.0-3.0 L (test code = 387) PATIENT TEMPERATURE (BEAKER) 36.0 (test code = 1818) FIO2 (BEAKER) (test code = 1819) 21.0 CALCIUM, [id number] 12:36:15 Test Item Value Reference Range Interpretation Comments CALCIUM IONIZED (BEAKER) (test 1.21 mmol/L 1.12-1.27 code = 698) PH, BLOOD (BEAKER) (test code = 7.37 1810) GLUCOSE-STAT [id number] 12:34:08 Test Item Value Reference Range Interpretation Comments GLUCOSE RANDOM (BEAKER) (test code 115 mg/dL 70-110 H = 652) POTASSIUM-STAT [id number] 12:34:08 Test Item Value Reference Range Interpretation Comments POTASSIUM (BEAKER) (test code = 4.4 meq/L 3.6-5.5 379) OXYGEN SATURATION, [id number] 10:31:47 Test Item Value Reference Range Interpretation Comments O2 SATURATION (MEASURED) (BEAKER) 60.7 % (test code = 1455) MISCELLANEOUS LAB [id number] 09:22:57 Test Item Value Reference Range Interpretation Comments SCAN RESULT (test code = See scanned report. [id number]) HGB/HCT (H&H) - STAT [id number] 08:04:50 Test Item Value Reference Range Interpretation Comments HEMOGLOBIN (BEAKER) (test code = 7.7 GM/DL 12.0-15.0 L 410) HEMATOCRIT (BEAKER) (test code = 23.0 % 36.0-45.0 L 411) BLOOD GAS, [id number] 08:04:49 Test Item Value Reference Range Interpretation Comments PH ARTERIAL (BEAKER) (test code = 7.44 7.35-7.45 383) PCO2 ARTERIAL (BEAKER) (test code 32 mm Hg 35-45 L = 384) PO2 ARTERIAL (BEAKER) (test code 131 mm Hg 80-90 H = 385) O2 SATURATION ARTERIAL (BEAKER) 98.7 % 96.0-97.0 H (test code = 386) HCO3 ARTERIAL (BEAKER) (test code 21 mmol/L 21-29 = 388) BASE EXCESS ARTERIAL (BEAKER) -2.8 mmol/L -2.0-3.0 L (test code = 387) PATIENT TEMPERATURE (BEAKER) 37.4 (test code = 1818) OXYGEN SATURATION, [id number] 08:04:43 Test Item Value Reference Range Interpretation Comments O2 SATURATION (MEASURED) (BEAKER) 45.4 % (test code = 1455) POTASSIUM-STAT [id number] 08:04:33 Test Item Value Reference Range Interpretation Comments POTASSIUM (BEAKER) (test code = 4.2 meq/L 3.6-5.5 379) SODIUM NA-STAT [id number] 08:04:27 Test Item Value Reference Range Interpretation Comments SODIUM (BEAKER) (test code = 381) 136 meq/L 136-145 GLUCOSE-STAT [id number] 08:04:26 Test Item Value Reference Range Interpretation Comments GLUCOSE RANDOM (BEAKER) (test code = 91 mg/dL 70-110 652) XR CHEST 1 VIEW PORTABLE / [id number] 07:48:28 [facility] 1955 Sex: FXR CHEST 1 VIEW PORTABLE / BEDSIDEINDICATION: s/p ACB surgeryCOMPARISON: Prior day's examFINDINGS: Portable frontal view of the chest. IMPRESSION:Support Lines: Central catheter tip overlies the right atrium. Secor-Ganztip overlies the pulmonary outflow tract. Bilateral chest tubes. Lungs and pleura: Unchanged diffuse interstitial thickening,representing singly or in combination, interstitial edema and/orpneumonitis. No significant pneumothorax.Heart and mediastinum: Stable contours. Stable surgical changes.Additional findings: None.Electronically Signed By: Taya Phelps03/19/2023 07:50 CDTWorkstation Na me: [id number] (H&H) - STAT [id number] 05:43:54 Test Item Value Reference Range Interpretation Comments HEMOGLOBIN (BEAKER) (test code = 7.5 GM/DL 12.0-15.0 L 410) HEMATOCRIT (BEAKER) (test code = 22.0 % 36.0-45.0 L 411) BLOOD GAS, [id number] 05:43:53 Test Item Value Reference Range Interpretation Comments PH ARTERIAL (BEAKER) (test code = 7.47 7.35-7.45 H 383) PCO2 ARTERIAL (BEAKER) (test code 33 mm Hg 35-45 L = 384) PO2 ARTERIAL (BEAKER) (test code 153 mm Hg 80-90 H = 385) O2 SATURATION ARTERIAL (BEAKER) 99.1 % 96.0-97.0 H (test code = 386) HCO3 ARTERIAL (BEAKER) (test code 23 mmol/L 21-29 = 388) BASE EXCESS ARTERIAL (BEAKER) -0.4 mmol/L -2.0-3.0 (test code = 387) PATIENT TEMPERATURE (BEAKER) 37.2 (test code = 1818) FIO2 (BEAKER) (test code = 1819) 28.0 OXYGEN SATURATION, [id number] 05:42:29 Test Item Value Reference Range Interpretation Comments O2 SATURATION (MEASURED) (BEAKER) 46.3 % (test code = 1455) POTASSIUM-STAT [id number] 05:42:10 Test Item Value Reference Range Interpretation Comments POTASSIUM (BEAKER) (test code = 4.0 meq/L 3.6-5.5 379) GLUCOSE-STAT [id number] 05:42:09 Test Item Value Reference Range Interpretation Comments GLUCOSE RANDOM (BEAKER) (test code = 76 mg/dL 70-110 652) SODIUM NA-STAT [id number] 05:42:09 Test Item Value Reference Range Interpretation Comments SODIUM (BEAKER) (test code = 381) 135 meq/L 136-145 L [id number] 03:00:43 Test Item Value Reference Range Interpretation Comments PROTIME (BEAKER) (test 16.2 seconds 11.9-14.2 H code = 759) INR (BEAKER) (test 1.33 See_Comment [Automat ed code = 370) message] The sy stem which generated this result transmitted reference range : <=5.90. The reference range was not used to interpret this result as normal/abnormal . PARTIAL THROMBOPLASTIN 42.6 seconds 22.5-36.0 H TIME (BEAKER) (test code = 760) RECOMMENDED COUMADIN/WARFARIN INR THERAPY RANGESSTANDARD DOSE: 2.0 - 3.0 Includes: PROPHYLAXIS for venous thrombosis, systemic embolization; TREATMENT for venous thrombosis and/or pulmonary embolus.HIGH RISK: Target INR is 2.5-3.5 for patients with mechanical heart valves.[id number] 03:00:42 Test Item Value Reference Range Interpretation Comments MAGNESIUM (BEAKER) (test code = 2.1 mg/dL 1.6-2.6 627) Wheat Washer ID - CHELLY [id number] 03:00:42 Test Item Value Reference Range Interpretation Comments PHOSPHORUS (BEAKER) (test code = 4.0 mg/dL 2.3-4.7 604) Wheat Washer ID - CHELLY BBASIC METABOLIC [id number] 03:00:41 Test Item Value Reference Range Interpretation Comments SODIUM (BEAKER) 137 meq/L 136-145 (test code = 381) POTASSIUM 4.3 meq/L 3.5-5.1 (BEAKER) (test code = 379) CHLORIDE (BEAKER) 103 meq/L 98-107 (test code = 382) CO2 (BEAKER) 19 meq/L 22-29 L (test code = 355) BLOOD UREA 15 mg/dL 7-21 NITROGEN (BEAKER) (test code = 354) CREATININE 1.65 mg/dL 0.57-1.25 H (BEAKER) (test code = 358) GLUCOSE RANDOM 85 mg/dL 70-105 (BEAKER) (test code = 652) CALCIUM (BEAKER) 9.6 mg/dL 8.4-10.2 (test code = 697) EGFR (BEAKER) 34 Interpretatio n of eGFR (test code = mL/min/1.73 values Stage De scription 1092) sq m Result G1 Keiry l or high >=90 G2 Mildly decreased 60-89 G3a Mildl y to moderately 45-5 9 G3b Moderately to s everely 30-44 G4 Severl y decreased 15-29 G5 Kidne y failure <15Reported eGF R is based on the CKD-EPI 2020 equation that d oes not use a race coefficientEsti mated GFR is not as accur ate as Creatinine Birdie snyder in predicting glom erular filtration rate . Estimated GFR is not appl icable for dialysis patien ts Wheat Washer ID - CHELLY [id number] 03:00:23 Test Item Value Reference Range Interpretation Comments FIBRINOGEN LEVEL (BEAKER) (test 488 mg/dl 225-434 H code = 658) CALCIUM, [id number] 02:48:41 Test Item Value Reference Range Interpretation Comments CALCIUM IONIZED (BEAKER) (test 1.23 mmol/L 1.12-1.27 code = 698) PH, BLOOD (BEAKER) (test code = 7.38 1810) OXYGEN SATURATION, [id number] 02:48:20 Test Item Value Reference Range Interpretation Comments O2 SATURATION (MEASURED) (BEAKER) 61.4 % (test code = 1455) BLOOD GAS, [id number] 02:44:41 Test Item Value Reference Range Interpretation Comments PH ARTERIAL (BEAKER) (test code = 7.43 7.35-7.45 383) PCO2 ARTERIAL (BEAKER) (test code 40 mm Hg 35-45 = 384) PO2 ARTERIAL (BEAKER) (test code = 164 mm Hg 80-90 H 385) O2 SATURATION ARTERIAL (BEAKER) 99.1 % 96.0-97.0 H (test code = 386) HCO3 ARTERIAL (BEAKER) (test code 26 mmol/L 21-29 = 388) BASE EXCESS ARTERIAL (BEAKER) 1.4 mmol/L -2.0-3.0 (test code = 387) PATIENT TEMPERATURE (BEAKER) (test 37.4 code = 1818) FIO2 (BEAKER) (test code = 1819) 28.0 CBC (HEMOGRAM ONLY)2023-03-19 02:32:39 Test Item Value Reference Range Interpretation Comments WHITE BLOOD CELL COUNT (BEAKER) 9.4 K/ L 3.5-10.5 (test code = 775) RED BLOOD CELL COUNT (BEAKER) 2.65 M/ L 3.93-5.22 L (test code = 761) HEMOGLOBIN (BEAKER) (test code = 7.5 GM/DL 11.2-15.7 L 410) HEMATOCRIT (BEAKER) (test code = 24.7 % 34.1-44.9 L 411) MEAN CORPUSCULAR VOLUME (BEAKER) 93 fL 79-95 (test code = 753) MEAN CORPUSCULAR HEMOGLOBIN 28.3 pg 25.6-32.2 (BEAKER) (test code = 751) MEAN CORPUSCULAR HEMOGLOBIN CONC 30.4 GM/DL 32.2-35.5 L (BEAKER) (test code = 752) RED CELL DISTRIBUTION WIDTH 18.6 % 11.7-14.4 H (BEAKER) (test code = 412) PLATELET COUNT (BEAKER) (test code 65 K/CU MM 150-450 L = 756) MEAN PLATELET VOLUME (BEAKER) 10.9 fL 9.4-12.3 (test code = 754) NUCLEATED RED BLOOD CELLS (BEAKER) 0 /100 WBC 0-0 (test code = 413) [id number] 01:40:31 Test Item Value Reference Range Interpretation Comments POTASSIUM (BEAKER) (test code = 4.4 meq/L 3.5-5.1 379) Wheat Washer ID - CHELLY [id number] 20:30:45 Test Item Value Reference Range Interpretation Comments POTASSIUM (BEAKER) (test code = 4.3 meq/L 3.5-5.1 379) Wheat Washer ID - [id number] 20:30:44 Test Item Value Reference Range Interpretation Comments PHOSPHORUS (BEAKER) (test code = 2.5 mg/dL 2.3-4.7 604) Wheat Washer ID - [id number] 20:30:43 Test Item Value Reference Range Interpretation Comments MAGNESIUM (BEAKER) (test code = 2.1 mg/dL 1.6-2.6 627) Wheat Washer ID - [id number] 13:34:40 Test Item Value Reference Range Interpretation Comments PHOSPHORUS (BEAKER) (test code = 2.7 mg/dL 2.3-4.7 604) Wheat Washer ID - CHELLY [id number] 13:34:39 Test Item Value Reference Range Interpretation Comments MAGNESIUM (BEAKER) (test code = 2.2 mg/dL 1.6-2.6 627) Wheat Washer ID - CHELLY BBASIC METABOLIC [id number] 13:34:38 Test Item Value Reference Range Interpretation Comments SODIUM (BEAKER) 137 meq/L 136-145 (test code = 381) POTASSIUM 4.4 meq/L 3.5-5.1 (BEAKER) (test code = 379) CHLORIDE (BEAKER) 104 meq/L 98-107 (test code = 382) CO2 (BEAKER) 19 meq/L 22-29 L (test code = 355) BLOOD UREA 13 mg/dL 7-21 NITROGEN (BEAKER) (test code = 354) CREATININE 1.49 mg/dL 0.57-1.25 H (BEAKER) (test code = 358) GLUCOSE RANDOM 100 mg/dL 70-105 (BEAKER) (test code = 652) CALCIUM (BEAKER) 9.9 mg/dL 8.4-10.2 (test code = 697) EGFR (BEAKER) 38 Interpretatio n of eGFR (test code = mL/min/1.73 values Stage De scription 1092) sq m Result G1 Keiry l or high >=90 G2 Mildly decreased 60-89 G3a Mildl y to moderately 45-5 9 G3b Moderately to s everely 30-44 G4 Severl y decreased 15-29 G5 Kidney failure <15Reported eGF R is based on the CKD-EPI 202 equation that d oes not use a race coefficientEsti mated GFR is not as accur ate as Creatinine Birdie lillian in predicting glom erular filtration rate . Estimated GFR is not appl icable for dialysis patien ts Wheat Washer ID - CHELLY BCBC W/PLT COUNT & AUTO [id number] 13:25:29 Test Item Value Reference Range Interpretation Comments WHITE BLOOD CELL COUNT (BEAKER) 12.2 K/ L 3.5-10.5 H (test code = 775) RED BLOOD CELL COUNT (BEAKER) 2.74 M/ L 3.93-5.22 L (test code = 761) HEMOGLOBIN (BEAKER) (test code = 8.0 GM/DL 11.2-15.7 L 410) HEMATOCRIT (BEAKER) (test code = 25.0 % 34.1-44.9 L 411) MEAN CORPUSCULAR VOLUME (BEAKER) 91 fL 79-95 (test code = 753) MEAN CORPUSCULAR HEMOGLOBIN 29.2 pg 25.6-32.2 (BEAKER) (test code = 751) MEAN CORPUSCULAR HEMOGLOBIN CONC 32.0 GM/DL 32.2-35.5 L (BEAKER) (test code = 752) RED CELL DISTRIBUTION WIDTH 18.6 % 11.7-14.4 H (BEAKER) (test code = 412) PLATELET COUNT (BEAKER) (test code 59 K/CU MM 150-450 L = 756) MEAN PLATELET VOLUME (BEAKER) 11.1 fL 9.4-12.3 (test code = 754) NUCLEATED RED BLOOD CELLS (BEAKER) 0 /100 WBC 0-0 (test code = 413) NEUTROPHILS RELATIVE PERCENT 88 % (BEAKER) (test code = 429) LYMPHOCYTES RELATIVE PERCENT 3 % (BEAKER) (test code = 430) MONOCYTES RELATIVE PERCENT 6 % (BEAKER) (test code = 431) EOSINOPHILS RELATIVE PERCENT 2 % (BEAKER) (test code = 432) BASOPHILS RELATIVE PERCENT 0 % (BEAKER) (test code = 437) NEUTROPHILS ABSOLUTE COUNT 10.81 K/ L 1.56-6.13 H (BEAKER) (test code = 670) LYMPHOCYTES ABSOLUTE COUNT 0.40 K/ L 1.18-3.74 L (BEAKER) (test code = 414) MONOCYTES ABSOLUTE COUNT (BEAKER) 0.72 K/ L 0.24-0.36 H (test code = 415) EOSINOPHILS ABSOLUTE COUNT 0.25 K/ L 0.04-0.36 (BEAKER) (test code = 416) BASOPHILS ABSOLUTE COUNT (BEAKER) 0.01 K/ L 0.01-0.08 (test code = 417) IMMATURE GRANULOCYTES-RELATIVE 0.40 % 0.00-1.00 PERCENT (BEAKER) (test code = 2801) OXYGEN SATURATION, [id number] 13:13:17 Test Item Value Reference Range Interpretation Comments O2 SATURATION (MEASURED) (BEAKER) 57.8 % (test code = 1455) CALCIUM, [id number] 13:13:16 Test Item Value Reference Range Interpretation Comments CALCIUM IONIZED (BEAKER) (test 1.26 mmol/L 1.12-1.27 code = 698) PH, BLOOD (BEAKER) (test code = 7.45 1810) XR CHEST 1 VIEW PORTABLE / [id number] 07:46:20 [facility] : 1955 Sex: FChestone view:HISTORY: s/p ACB surgeryComparison: Previous day's studySupport apparatus: Not significantly changed in position.Bibasilar atelectasis is again noted. Right perihilar subsegmentalatelectasis is now present. There is no pneumothorax or pleuraleffusion. Cardiac size is unchanged. Changes of median sternotomy areagain noted.Electronically Signed By: Collins Yeh03/18/2023 07:48 CDTWorkstation Name: [id number] 02:43:17 Test Item Value Reference Range Interpretation Comments MAGNESIUM (BEAKER) (test code = 2.4 mg/dL 1.6-2.6 627) Wheat Washer ID - CHELLY [id number] 02:43:17 Test Item Value Reference Range Interpretation Comments PHOSPHORUS (BEAKER) (test code = 3.3 mg/dL 2.3-4.7 604) Wheat Washer ID - CHELLY BBASIC METABOLIC [id number] 02:43:16 Test Item Value Reference Range Interpretation Comments SODIUM (BEAKER) 139 meq/L 136-145 (test code = 381) POTASSIUM 4.2 meq/L 3.5-5.1 (BEAKER) (test code = 379) CHLORIDE (BEAKER) 106 meq/L 98-107 (test code = 382) CO2 (BEAKER) 20 meq/L 22-29 L (test code = 355) BLOOD UREA 13 mg/dL 7-21 NITROGEN (BEAKER) (test code = 354) CREATININE 1.55 mg/dL 0.57-1.25 H (BEAKER) (test code = 358) GLUCOSE RANDOM 98 mg/dL 70-105 (BEAKER) (test code = 652) CALCIUM (BEAKER) 9.7 mg/dL 8.4-10.2 (test code = 697) EGFR (BEAKER) 36 Interpretatio n of eGFR (test code = mL/min/1.73 values Stage De scription 1092) sq m Result G1 Keiry l or high >=90 G2 Mildly decreased 60-89 G3a Mildl y to moderately 45-5 9 G3b Moderately to s everely 30-44 G4 Severl y decreased 15-29 G5 Kidney failure <15Reported eGF R is based on the CKD-EPI 2020 equation that d oes not use a race coefficientEsti mated GFR is not as accur ate as Creatinine Birdie snyder in predicting glom erular filtration rate . Estimated GFR is not appl icable for dialysis patien ts Wheat Washer ID - CHELLY BLACTIC ACID, [id number] 02:36:57 Test Item Value Reference Range Interpretation Comments LACTATE BLOOD ARTERIAL (2) 0.5 mmol/L 0.5-2.0 (BEAKER) (test code = 2874) Wheat Washer ID - CHELLY BPT/[id number] 02:33:52 Test Item Value Reference Range Interpretation Comments PROTIME (BEAKER) (test 16.2 seconds 11.9-14.2 H code = 759) INR (BEAKER) (test 1.39 See_Comment [Automat ed code = 370) message] The sy stem which generated this result transmitted reference range : <=5.90. The reference range was not used to interpret this result as normal/abnormal . PARTIAL THROMBOPLASTIN 42.8 seconds 22.5-36.0 H TIME (BEAKER) (test code = 760) RECOMMENDED COUMADIN/WARFARIN INR THERAPY RANGESSTANDARD DOSE: 2.0 - 3.0 Includes: PROPHYLAXIS for venous thrombosis, systemic embolization; TREATMENT for venous thrombosis and/or pulmonary embolus.HIGH RISK: Target INR is 2.5-3.5 for patients with mechanical heart valves.PROTHROMBIN TIME/[id number] 02:32:54 Test Item Value Reference Range Interpretation Comments PROTIME (BEAKER) 16.2 seconds 11.9-14.2 H (test code = 759) INR (BEAKER) (test 1.39 See_Comment [Automat ed message] code = 370) The system 51wan generated this result transmitted ref erence range: <=5.90. The reference range was not used to int erpret this result as normal/abnormal . RECOMMENDED COUMADIN/WARFARIN INR THERAPY RANGESSTANDARD DOSE: 2.0 - 3.0 Includes: PROPHYLAXIS for venous thrombosis, systemic embolization; TREATMENT for venous thrombosis and/or pulmonary embolus.HIGH RISK: Target INR is 2.5-3.5 for patients with mechanical heart valves.BLOOD GAS, [id number] 02:25:24 Test Item Value Reference Range Interpretation Comments PH ARTERIAL (BEAKER) (test code = 7.45 7.35-7.45 383) PCO2 ARTERIAL (BEAKER) (test code 38 mm Hg 35-45 = 384) PO2 ARTERIAL (BEAKER) (test code = 131 mm Hg 80-90 H 385) O2 SATURATION ARTERIAL (BEAKER) 98.8 % 96.0-97.0 H (test code = 386) HCO3 ARTERIAL (BEAKER) (test code 26 mmol/L 21-29 = 388) BASE EXCESS ARTERIAL (BEAKER) 1.7 mmol/L -2.0-3.0 (test code = 387) PATIENT TEMPERATURE (BEAKER) (test 36.7 code = 1818) FIO2 (BEAKER) (test code = 1819) 36.0 OXYGEN SATURATION, [id number] 02:25:12 Test Item Value Reference Range Interpretation Comments O2 SATURATION (MEASURED) (BEAKER) 72.1 % (test code = 1455) CBC (HEMOGRAM ONLY)2023-03-18 02:23:30 Test Item Value Reference Range Interpretation Comments WHITE BLOOD CELL COUNT (BEAKER) 12.2 K/ L 3.5-10.5 H (test code = 775) RED BLOOD CELL COUNT (BEAKER) 2.83 M/ L 3.93-5.22 L (test code = 761) HEMOGLOBIN (BEAKER) (test code = 8.1 GM/DL 11.2-15.7 L 410) HEMATOCRIT (BEAKER) (test code = 25.8 % 34.1-44.9 L 411) MEAN CORPUSCULAR VOLUME (BEAKER) 91 fL 79-95 (test code = 753) MEAN CORPUSCULAR HEMOGLOBIN 28.6 pg 25.6-32.2 (BEAKER) (test code = 751) MEAN CORPUSCULAR HEMOGLOBIN CONC 31.4 GM/DL 32.2-35.5 L (BEAKER) (test code = 752) RED CELL DISTRIBUTION WIDTH 18.6 % 11.7-14.4 H (BEAKER) (test code = 412) PLATELET COUNT (BEAKER) (test code 47 K/CU MM 150-450 L = 756) MEAN PLATELET VOLUME (BEAKER) 10.4 fL 9.4-12.3 (test code = 754) NUCLEATED RED BLOOD CELLS (BEAKER) 0 /100 WBC 0-0 (test code = 413) CALCIUM, [id number] 02:23:14 Test Item Value Reference Range Interpretation Comments CALCIUM IONIZED (BEAKER) (test 1.23 mmol/L 1.12-1.27 code = 698) PH, BLOOD (BEAKER) (test code = 7.45 1810) [id number] 19:58:59 Test Item Value Reference Range Interpretation Comments POTASSIUM (BEAKER) (test code = 4.5 meq/L 3.5-5.1 379) Wheat Washer ID - [id number] 19:58:58 Test Item Value Reference Range Interpretation Comments PHOSPHORUS (BEAKER) (test code = 2.4 mg/dL 2.3-4.7 604) Wheat Washer ID - [id number] 19:58:57 Test Item Value Reference Range Interpretation Comments MAGNESIUM (BEAKER) (test code = 2.0 mg/dL 1.6-2.6 627) Wheat Washer ID - EMCBC (HEMOGRAM ONLY)2023-03-17 19:47:18 Test Item Value Reference Range Interpretation Comments WHITE BLOOD CELL COUNT (BEAKER) 13.8 K/ L 3.5-10.5 H (test code = 775) RED BLOOD CELL COUNT (BEAKER) 3.06 M/ L 3.93-5.22 L (test code = 761) HEMOGLOBIN (BEAKER) (test code = 8.7 GM/DL 11.2-15.7 L 410) HEMATOCRIT (BEAKER) (test code = 27.1 % 34.1-44.9 L 411) MEAN CORPUSCULAR VOLUME (BEAKER) 89 fL 79-95 (test code = 753) MEAN CORPUSCULAR HEMOGLOBIN 28.4 pg 25.6-32.2 (BEAKER) (test code = 751) MEAN CORPUSCULAR HEMOGLOBIN CONC 32.1 GM/DL 32.2-35.5 L (BEAKER) (test code = 752) RED CELL DISTRIBUTION WIDTH 18.5 % 11.7-14.4 H (BEAKER) (test code = 412) PLATELET COUNT (BEAKER) (test code 41 K/CU MM 150-450 L = 756) MEAN PLATELET VOLUME (BEAKER) 11.3 fL 9.4-12.3 (test code = 754) NUCLEATED RED BLOOD CELLS (BEAKER) 0 /100 WBC 0-0 (test code = 413) [id number] 18:20:50 Test Item Value Reference Range Interpretation Comments PARTIAL THROMBOPLASTIN TIME 41.8 seconds 22.5-36.0 H (BEAKER) (test code = 760) [id number] 18:20:11 Test Item Value Reference Range Interpretation Comments FIBRINOGEN LEVEL (BEAKER) (test 335 mg/dl 225-434 code = 658) PROTHROMBIN [id number] 18:19:48 Test Item Value Reference Range Interpretation Comments PROTIME (BEAKER) 15.7 seconds 11.9-14.2 H (test code = 759) INR (BEAKER) (test 1.33 See_Comment [Automat ed message] code = 370) The system 51wan generated this result transmitted ref erence range: <=5.90. The reference range was not used to int erpret this result as normal/abnormal . RECOMMENDED COUMADIN/WARFARIN INR THERAPY RANGESSTANDARD DOSE: 2.0 - 3.0 Includes: PROPHYLAXIS for venous thrombosis, systemic embolization; TREATMENT for venous thrombosis and/or pulmonary embolus.HIGH RISK: Target INR is 2.5-3.5 for patients with mechanical heart valves.CBC (HEMOGRAM ONLY)2023-03-17 18:14:11 Test Item Value Reference Range Interpretation Comments WHITE BLOOD CELL COUNT (BEAKER) 12.9 K/ L 3.5-10.5 H (test code = 775) RED BLOOD CELL COUNT (BEAKER) 3.01 M/ L 3.93-5.22 L (test code = 761) HEMOGLOBIN (BEAKER) (test code = 8.6 GM/DL 11.2-15.7 L 410) HEMATOCRIT (BEAKER) (test code = 27.0 % 34.1-44.9 L 411) MEAN CORPUSCULAR VOLUME (BEAKER) 90 fL 79-95 (test code = 753) MEAN CORPUSCULAR HEMOGLOBIN 28.6 pg 25.6-32.2 (BEAKER) (test code = 751) MEAN CORPUSCULAR HEMOGLOBIN CONC 31.9 GM/DL 32.2-35.5 L (BEAKER) (test code = 752) RED CELL DISTRIBUTION WIDTH 18.5 % 11.7-14.4 H (BEAKER) (test code = 412) PLATELET COUNT (BEAKER) (test code 38 K/CU MM 150-450 L = 756) MEAN PLATELET VOLUME (BEAKER) 9.4 fL 9.4-12.3 (test code = 754) NUCLEATED RED BLOOD CELLS (BEAKER) 0 /100 WBC 0-0 (test code = 413) [id number] 12:38:47 Test Item Value Reference Range Interpretation Comments MAGNESIUM (BEAKER) (test code = 2.1 mg/dL 1.6-2.6 627) Wheat Washer ID - [id number] 12:38:47 Test Item Value Reference Range Interpretation Comments PHOSPHORUS (BEAKER) (test code = 2.6 mg/dL 2.3-4.7 604) Wheat Washer ID - EMBASIC METABOLIC [id number] 12:38:46 Test Item Value Reference Range Interpretation Comments SODIUM (BEAKER) 140 meq/L 136-145 (test code = 381) POTASSIUM 4.5 meq/L 3.5-5.1 (BEAKER) (test code = 379) CHLORIDE (BEAKER) 106 meq/L 98-107 (test code = 382) CO2 (BEAKER) 26 meq/L 22-29 (test code = 355) BLOOD UREA 13 mg/dL 7-21 NITROGEN (BEAKER) (test code = 354) CREATININE 1.71 mg/dL 0.57-1.25 H (BEAKER) (test code = 358) GLUCOSE RANDOM 108 mg/dL 70-105 H (BEAKER) (test code = 652) CALCIUM (BEAKER) 9.7 mg/dL 8.4-10.2 (test code = 697) EGFR (BEAKER) 32 Interpretatio n of eGFR (test code = mL/min/1.73 values Stage De scription 1092) sq m Result G1 Keiry l or high >=90 G2 Mildly decreased 60-89 G3a Mildl y to moderately 45-5 9 G3b Moderately to s everely 30-44 G4 Severl y decreased 15-29 G5 Kidne y failure <15Reported eGF R is based on the CKD-EPI 2021 equation that d oes not use a race coefficientEsti mated GFR is not as accur ate as Creatinine Birdie lillian in predicting glom erular filtration rate . Estimated GFR is not appl icable for dialysis patien ts Wheat Washer ID - EMLACTIC ACID, [id number] 12:35:31 Test Item Value Reference Range Interpretation Comments LACTATE BLOOD ARTERIAL (2) 0.5 mmol/L 0.5-2.0 (BEAKER) (test code = 2874) Wheat Washer ID - EMCBC (HEMOGRAM ONLY)2023-03-17 12:18:06 Test Item Value Reference Range Interpretation Comments WHITE BLOOD CELL COUNT (BEAKER) 12.5 K/ L 3.5-10.5 H (test code = 775) RED BLOOD CELL COUNT (BEAKER) 2.66 M/ L 3.93-5.22 L (test code = 761) HEMOGLOBIN (BEAKER) (test code = 7.5 GM/DL 11.2-15.7 L 410) HEMATOCRIT (BEAKER) (test code = 23.8 % 34.1-44.9 L 411) MEAN CORPUSCULAR VOLUME (BEAKER) 90 fL 79-95 (test code = 753) MEAN CORPUSCULAR HEMOGLOBIN 28.2 pg 25.6-32.2 (BEAKER) (test code = 751) MEAN CORPUSCULAR HEMOGLOBIN CONC 31.5 GM/DL 32.2-35.5 L (BEAKER) (test code = 752) RED CELL DISTRIBUTION WIDTH 19.2 % 11.7-14.4 H (BEAKER) (test code = 412) PLATELET COUNT (BEAKER) (test code 29 K/CU MM 150-450 L = 756) MEAN PLATELET VOLUME (BEAKER) 10.0 fL 9.4-12.3 (test code = 754) NUCLEATED RED BLOOD CELLS (BEAKER) 0 /100 WBC 0-0 (test code = 413) OXYGEN SATURATION, [id number] 12:15:27 Test Item Value Reference Range Interpretation Comments O2 SATURATION (MEASURED) (BEAKER) 68.3 % (test code = 1455) CALCIUM, [id number] 12:14:45 Test Item Value Reference Range Interpretation Comments CALCIUM IONIZED (BEAKER) (test 1.25 mmol/L 1.12-1.27 code = 698) PH, BLOOD (BEAKER) (test code = 7.46 1810) HGB/HCT (H&H) - STAT [id number] 11:01:30 Test Item Value Reference Range Interpretation Comments HEMOGLOBIN (BEAKER) (test code = 8.1 GM/DL 12.0-15.0 L 410) HEMATOCRIT (BEAKER) (test code = 24.0 % 36.0-45.0 L 411) SODIUM NA-STAT [id number] 11:01:29 Test Item Value Reference Range Interpretation Comments SODIUM (BEAKER) (test code = 381) 134 meq/L 136-145 L BLOOD GAS, [id number] 11:01:28 Test Item Value Reference Range Interpretation Comments PH ARTERIAL (BEAKER) (test code = 7.50 7.35-7.45 H 383) PCO2 ARTERIAL (BEAKER) (test code 32 mm Hg 35-45 L = 384) PO2 ARTERIAL (BEAKER) (test code = 103 mm Hg 80-90 H 385) O2 SATURATION ARTERIAL (BEAKER) 98.3 % 96.0-97.0 H (test code = 386) HCO3 ARTERIAL (BEAKER) (test code 25 mmol/L 21-29 = 388) BASE EXCESS ARTERIAL (BEAKER) 1.5 mmol/L -2.0-3.0 (test code = 387) PATIENT TEMPERATURE (BEAKER) (test 35.9 code = 1818) FIO2 (BEAKER) (test code = 1819) 36.0 GLUCOSE-STAT [id number] 10:59:59 Test Item Value Reference Range Interpretation Comments GLUCOSE RANDOM (BEAKER) (test code 110 mg/dL 70-110 = 652) POTASSIUM-STAT [id number] 10:59:59 Test Item Value Reference Range Interpretation Comments POTASSIUM (BEAKER) (test code = 4.2 meq/L 3.6-5.5 379) [id number] 08:19:59 Test Item Value Reference Range Interpretation Comments PHOSPHORUS (BEAKER) (test code = 2.7 mg/dL 2.3-4.7 604) Wheat Washer ID - [id number] 08:19:59 Test Item Value Reference Range Interpretation Comments POTASSIUM (BEAKER) (test code = 4.5 meq/L 3.5-5.1 379) Wheat Washer ID - [id number] 08:19:58 Test Item Value Reference Range Interpretation Comments MAGNESIUM (BEAKER) (test code = 2.2 mg/dL 1.6-2.6 627) Wheat Washer ID - EMXR CHEST 1 VIEW PORTABLE / [id number] 08:13:35 [facility] 1955 Sex: FChestone view:HISTORY: s/p ACB surgeryComparison: Previous day's studySupport apparatus: The endotrachealand nasogastric tubes have beenremoved in the interval. The remaining support apparatus is notsignificantly changed in position.Bibasilar subsegmental atelectasis is present. There is no pneumothoraxorpleural effusion. Cardiac size is unchanged. Sternotomy changes areagain noted.Electronically SignedBy: Collins Yeh03/17/2023 08:15 CDTWorkstation Name: [id number]- GLUCOSE [id number] 08:08:50 Test Item Value Reference Range Interpretation Comments POC-GLUCOSE METER 109 mg/dL 70-110 : TESTED A T [facility] 6720 (BEAKER) (test code = [place], 1538) [address]: Wheat Washer/Techni patricia ID = [id number] for Luke kymMarcia luevano CBC W/PLT COUNT & AUTO [id number] 06:55:18 Test Item Value Reference Range Interpretation Comments WHITE BLOOD CELL COUNT (BEAKER) 14.4 K/ L 3.5-10.5 H (test code = 775) RED BLOOD CELL COUNT (BEAKER) 2.90 M/ L 3.93-5.22 L (test code = 761) HEMOGLOBIN (BEAKER) (test code = 8.1 GM/DL 11.2-15.7 L 410) HEMATOCRIT (BEAKER) (test code = 25.7 % 34.1-44.9 L 411) MEAN CORPUSCULAR VOLUME (BEAKER) 89 fL 79-95 (test code = 753) MEAN CORPUSCULAR HEMOGLOBIN 27.9 pg 25.6-32.2 (BEAKER) (test code = 751) MEAN CORPUSCULAR HEMOGLOBIN CONC 31.5 GM/DL 32.2-35.5 L (BEAKER) (test code = 752) RED CELL DISTRIBUTION WIDTH 19.1 % 11.7-14.4 H (BEAKER) (test code = 412) PLATELET COUNT (BEAKER) (test code 38 K/CU MM 150-450 L = 756) MEAN PLATELET VOLUME (BEAKER) 9.8 fL 9.4-12.3 (test code = 754) NUCLEATED RED BLOOD CELLS (BEAKER) 0 /100 WBC 0-0 (test code = 413) NEUTROPHILS RELATIVE PERCENT 86 % (BEAKER) (test code = 429) LYMPHOCYTES RELATIVE PERCENT 4 % (BEAKER) (test code = 430) MONOCYTES RELATIVE PERCENT 8 % (BEAKER) (test code = 431) EOSINOPHILS RELATIVE PERCENT 2 % (BEAKER) (test code = 432) BASOPHILS RELATIVE PERCENT 0 % (BEAKER) (test code = 437) NEUTROPHILS ABSOLUTE COUNT 12.37 K/ L 1.56-6.13 H (BEAKER) (test code = 670) LYMPHOCYTES ABSOLUTE COUNT 0.51 K/ L 1.18-3.74 L (BEAKER) (test code = 414) MONOCYTES ABSOLUTE COUNT (BEAKER) 1.07 K/ L 0.24-0.36 H (test code = 415) EOSINOPHILS ABSOLUTE COUNT 0.32 K/ L 0.04-0.36 (BEAKER) (test code = 416) BASOPHILS ABSOLUTE COUNT (BEAKER) 0.01 K/ L 0.01-0.08 (test code = 417) IMMATURE GRANULOCYTES-RELATIVE 0.50 % 0.00-1.00 PERCENT (BEAKER) (test code = 2801) POCT-GLUCOSE [id number] 06:09:26 Test Item Value Reference Range Interpretation Comments POC-GLUCOSE METER 113 mg/dL 70-110 H : TESTED A T BSC 6720 (BEAKER) (test code = S[place]MAN[place], 1538) [address]: Wheat Washer/Techni patricia ID = [id number] for Sir Sagar Cook HEPATIC FUNCTION [id number] 04:09:05 Test Item Value Reference Range Interpretation Comments TOTAL PROTEIN (BEAKER) (test code = 5.3 gm/dL 6.0-8.3 L 770) ALBUMIN (BEAKER) (test code = 1145) 3.0 g/dL 3.5-5.0 L BILIRUBIN TOTAL (BEAKER) (test code 1.1 mg/dL 0.2-1.2 = 377) BILIRUBIN DIRECT (BEAKER) (test 0.7 mg/dL 0.1-0.5 H code = 706) ALKALINE PHOSPHATASE (BEAKER) (test 75 U/L 40-150 code = 346) AST (SGOT) (BEAKER) (test code = 20 U/L 5-34 353) ALT (SGPT) (BEAKER) (test code = < U/L 6-55 L 347) Wheat [employer]her ID - FSEBASIC METABOLIC [id number] 03:32:32 Test Item Value Reference Range Interpretation Comments SODIUM (BEAKER) 138 meq/L 136-145 (test code = 381) POTASSIUM 4.3 meq/L 3.5-5.1 (BEAKER) (test code = 379) CHLORIDE (BEAKER) 105 meq/L 98-107 (test code = 382) CO2 (BEAKER) 20 meq/L 22-29 L (test code = 355) BLOOD UREA 15 mg/dL 7-21 NITROGEN (BEAKER) (test code = 354) CREATININE 2.03 mg/dL 0.57-1.25 H (BEAKER) (test code = 358) GLUCOSE RANDOM 110 mg/dL 70-105 H (BEAKER) (test code = 652) CALCIUM (BEAKER) 9.3 mg/dL 8.4-10.2 (test code = 697) EGFR (BEAKER) 26 Interpretatio n of eGFR (test code = mL/min/1.73 values Stage De scription 1092) sq m Result G1 Ekiry l or high >=90 G2 Mildly decreased 60-89 G3a Mildl y to moderately 45-5 9 G3b Moderately to s everely 30-44 G4 Severl y decreased 15-29 G5 Kidney failure <15Reported eGF R is based on the CKD-EPI 2020 equation that d oes not use a race coefficientEsti mated GFR is not as accur ate as Creatinine Birdie snyder in predicting glom erular filtration rate . Estimated GFR is not appl icable for dialysis patien ts Wheat [employer]her ID - [id number] 03:26:13 Test Item Value Reference Range Interpretation Comments MAGNESIUM (BEAKER) (test code = 2.0 mg/dL 1.6-2.6 627) Wheat Washer ID - [id number] 03:26:13 Test Item Value Reference Range Interpretation Comments PHOSPHORUS (BEAKER) (test code = 2.8 mg/dL 2.3-4.7 604) Wheat Washer ID - FSECBC (HEMOGRAM ONLY)2023-03-17 02:51:49 Test Item Value Reference Range Interpretation Comments WHITE BLOOD CELL COUNT (BEAKER) 15.1 K/ L 3.5-10.5 H (test code = 775) RED BLOOD CELL COUNT (BEAKER) 2.60 M/ L 3.93-5.22 L (test code = 761) HEMOGLOBIN (BEAKER) (test code = 7.3 GM/DL 11.2-15.7 L 410) HEMATOCRIT (BEAKER) (test code = 23.4 % 34.1-44.9 L 411) MEAN CORPUSCULAR VOLUME (BEAKER) 90 fL 79-95 (test code = 753) MEAN CORPUSCULAR HEMOGLOBIN 28.1 pg 25.6-32.2 (BEAKER) (test code = 751) MEAN CORPUSCULAR HEMOGLOBIN CONC 31.2 GM/DL 32.2-35.5 L (BEAKER) (test code = 752) RED CELL DISTRIBUTION WIDTH 19.8 % 11.7-14.4 H (BEAKER) (test code = 412) PLATELET COUNT (BEAKER) (test code 35 K/CU MM 150-450 L = 756) MEAN PLATELET VOLUME (BEAKER) 10.4 fL 9.4-12.3 (test code = 754) NUCLEATED RED BLOOD CELLS (BEAKER) 0 /100 WBC 0-0 (test code = 413) BLOOD GAS, [id number] 02:35:12 Test Item Value Reference Range Interpretation Comments PH ARTERIAL (BEAKER) (test code = 7.45 7.35-7.45 383) PCO2 ARTERIAL (BEAKER) (test code 38 mm Hg 35-45 = 384) PO2 ARTERIAL (BEAKER) (test code = 108 mm Hg 80-90 H 385) O2 SATURATION ARTERIAL (BEAKER) 98.3 % 96.0-97.0 H (test code = 386) HCO3 ARTERIAL (BEAKER) (test code 26 mmol/L 21-29 = 388) BASE EXCESS ARTERIAL (BEAKER) 1.7 mmol/L -2.0-3.0 (test code = 387) PATIENT TEMPERATURE (BEAKER) (test 36.2 code = 1818) FIO2 (BEAKER) (test code = 1819) 36.0 CALCIUM, [id number] 02:34:46 Test Item Value Reference Range Interpretation Comments CALCIUM IONIZED (BEAKER) (test 1.23 mmol/L 1.12-1.27 code = 698) PH, BLOOD (BEAKER) (test code = 7.44 1810) OXYGEN SATURATION, [id number] 02:34:23 Test Item Value Reference Range Interpretation Comments O2 SATURATION (MEASURED) (BEAKER) 64.7 % (test code = 1455) HGB/HCT (H&H) - STAT [id number] 20:54:18 Test Item Value Reference Range Interpretation Comments HEMOGLOBIN (BEAKER) (test code = 8.3 GM/DL 12.0-15.0 L 410) HEMATOCRIT (BEAKER) (test code = 24.0 % 36.0-45.0 L 411) CALCIUM, [id number] 20:47:51 Test Item Value Reference Range Interpretation Comments CALCIUM IONIZED (BEAKER) (test 1.22 mmol/L 1.12-1.27 code = 698) PH, BLOOD (BEAKER) (test code = 7.43 1810) POTASSIUM-STAT [id number] 20:46:53 Test Item Value Reference Range Interpretation Comments POTASSIUM (BEAKER) (test code = 4.2 meq/L 3.6-5.5 379) GLUCOSE-STAT [id number] 20:46:52 Test Item Value Reference Range Interpretation Comments GLUCOSE RANDOM (BEAKER) (test code 125 mg/dL 70-110 H = 652) SODIUM NA-STAT [id number] 20:46:52 Test Item Value Reference Range Interpretation Comments SODIUM (BEAKER) (test code = 381) 136 meq/L 136-145 BLOOD GAS, [id number] 20:46:51 Test Item Value Reference Range Interpretation Comments PH ARTERIAL (BEAKER) (test code = 7.42 7.35-7.45 383) PCO2 ARTERIAL (BEAKER) (test code 38 mm Hg 35-45 = 384) PO2 ARTERIAL (BEAKER) (test code 86 mm Hg 80-90 = 385) O2 SATURATION ARTERIAL (BEAKER) 96.4 % 96.0-97.0 (test code = 386) HCO3 ARTERIAL (BEAKER) (test code 24 mmol/L 21-29 = 388) BASE EXCESS ARTERIAL (BEAKER) -0.3 mmol/L -2.0-3.0 (test code = 387) PATIENT TEMPERATURE (BEAKER) 37.5 (test code = 1818) FIO2 (BEAKER) (test code = 1819) 36.0 HGB/HCT (H&H) - STAT [id number] 18:49:42 Test Item Value Reference Range Interpretation Comments HEMOGLOBIN (BEAKER) (test code = 8.5 GM/DL 12.0-15.0 L 410) HEMATOCRIT (BEAKER) (test code = 25.0 % 36.0-45.0 L 411) BLOOD GAS, [id number] 18:49:41 Test Item Value Reference Range Interpretation Comments PH ARTERIAL (BEAKER) (test code = 7.42 7.35-7.45 383) PCO2 ARTERIAL (BEAKER) (test code 37 mm Hg 35-45 = 384) PO2 ARTERIAL (BEAKER) (test code 183 mm Hg 80-90 H = 385) O2 SATURATION ARTERIAL (BEAKER) 99.3 % 96.0-97.0 H (test code = 386) HCO3 ARTERIAL (BEAKER) (test code 24 mmol/L 21-29 = 388) BASE EXCESS ARTERIAL (BEAKER) -0.8 mmol/L -2.0-3.0 (test code = 387) PATIENT TEMPERATURE (BEAKER) 37.0 (test code = 1818) FIO2 (BEAKER) (test code = 1819) 21.0 POTASSIUM-STAT [id number] 18:49:20 Test Item Value Reference Range Interpretation Comments POTASSIUM (BEAKER) (test code = 4.4 meq/L 3.6-5.5 379) SODIUM NA-STAT [id number] 18:49:19 Test Item Value Reference Range Interpretation Comments SODIUM (BEAKER) (test code = 381) 136 meq/L 136-145 GLUCOSE-STAT [id number] 18:49:18 Test Item Value Reference Range Interpretation Comments GLUCOSE RANDOM (BEAKER) (test code 130 mg/dL 70-110 H = 652) COMPREHENSIVE METABOLIC [id number] 15:58:01 Test Item Value Reference Range Interpretation Comments TOTAL PROTEIN 5.4 gm/dL 6.0-8.3 L (BEAKER) (test code = 770) ALBUMIN (BEAKER) 3.1 g/dL 3.5-5.0 L (test code = 1145) ALKALINE 65 U/L 40-150 PHOSPHATASE (BEAKER) (test code = 346) BILIRUBIN TOTAL 0.9 mg/dL 0.2-1.2 (BEAKER) (test code = 377) SODIUM (BEAKER) 140 meq/L 136-145 (test code = 381) POTASSIUM (BEAKER) 4.5 meq/L 3.5-5.1 (test code = 379) CHLORIDE (BEAKER) 106 meq/L 98-107 (test code = 382) CO2 (BEAKER) (test 18 meq/L 22-29 L code = 355) BLOOD UREA 20 mg/dL 7-21 NITROGEN (BEAKER) (test code = 354) CREATININE 2.48 mg/dL 0.57-1.25 H (BEAKER) (test code = 358) GLUCOSE RANDOM 131 mg/dL 70-105 H (BEAKER) (test code = 652) CALCIUM (BEAKER) 9.4 mg/dL 8.4-10.2 (test code = 697) AST (SGOT) 18 U/L 5-34 (BEAKER) (test code = 353) ALT (SGPT) < U/L 6-55 L (BEAKER) (test code = 347) EGFR (BEAKER) 21 Interpretatio n of eGFR (test code = 1092) mL/min/1.[address] age Description sq m Result G1 Keiry l or high >=90 G2 Mildly decreased 60-89 G3a Mildl y to moderately 45-5 9 G3b Moderately to s everely 30-44 G4 Severl y decreased 15-29 G5 Kidney failure <15Reported eGF R is based on the CKD-EPI 2020 equation that d oes not use a race coefficientEsti mated GFR is not as accur ate as Creatinine Birdie snyder in predicting glom erular filtration rate . Estimated GFR is not appl icable for dialysis patien ts Wheat Washer ID - FSELACTIC ACID, [id number] 15:49:47 Test Item Value Reference Range Interpretation Comments LACTATE BLOOD ARTERIAL (2) 0.7 mmol/L 0.5-2.0 (BEAKER) (test code = 2874) Wheat Washer ID - FSEHGB/HCT (H&H) - STAT [id number] 15:40:19 Test Item Value Reference Range Interpretation Comments HEMOGLOBIN (BEAKER) (test code = 8.6 GM/DL 12.0-15.0 L 410) HEMATOCRIT (BEAKER) (test code = 25.0 % 36.0-45.0 L 411) BLOOD GAS, [id number] 15:40:18 Test Item Value Reference Range Interpretation Comments PH ARTERIAL (BEAKER) (test code = 7.42 7.35-7.45 383) PCO2 ARTERIAL (BEAKER) (test code 34 mm Hg 35-45 L = 384) PO2 ARTERIAL (BEAKER) (test code 151 mm Hg 80-90 H = 385) O2 SATURATION ARTERIAL (BEAKER) 99.0 % 96.0-97.0 H (test code = 386) HCO3 ARTERIAL (BEAKER) (test code 21 mmol/L 21-29 = 388) BASE EXCESS ARTERIAL (BEAKER) -2.7 mmol/L -2.0-3.0 L (test code = 387) PATIENT TEMPERATURE (BEAKER) 37.0 (test code = 1818) FIO2 (BEAKER) (test code = 1819) 21.0 POTASSIUM-STAT [id number] 15:39:50 Test Item Value Reference Range Interpretation Comments POTASSIUM (BEAKER) (test code = 4.2 meq/L 3.6-5.5 379) GLUCOSE-STAT [id number] 15:39:49 Test Item Value Reference Range Interpretation Comments GLUCOSE RANDOM (BEAKER) (test code 119 mg/dL 70-110 H = 652) SODIUM NA-STAT [id number] 15:39:49 Test Item Value Reference Range Interpretation Comments SODIUM (BEAKER) (test code = 381) 135 meq/L 136-145 L CBC W/PLT COUNT & AUTO [id number] 15:34:40 Test Item Value Reference Range Interpretation Comments WHITE BLOOD CELL COUNT (BEAKER) 12.3 K/ L 3.5-10.5 H (test code = 775) RED BLOOD CELL COUNT (BEAKER) 2.78 M/ L 3.93-5.22 L (test code = 761) HEMOGLOBIN (BEAKER) (test code = 7.8 GM/DL 11.2-15.7 L 410) HEMATOCRIT (BEAKER) (test code = 24.6 % 34.1-44.9 L 411) MEAN CORPUSCULAR VOLUME (BEAKER) 89 fL 79-95 (test code = 753) MEAN CORPUSCULAR HEMOGLOBIN 28.1 pg 25.6-32.2 (BEAKER) (test code = 751) MEAN CORPUSCULAR HEMOGLOBIN CONC 31.7 GM/DL 32.2-35.5 L (BEAKER) (test code = 752) RED CELL DISTRIBUTION WIDTH 20.0 % 11.7-14.4 H (BEAKER) (test code = 412) PLATELET COUNT (BEAKER) (test code 55 K/CU MM 150-450 L = 756) MEAN PLATELET VOLUME (BEAKER) 9.7 fL 9.4-12.3 (test code = 754) NUCLEATED RED BLOOD CELLS (BEAKER) 0 /100 WBC 0-0 (test code = 413) NEUTROPHILS RELATIVE PERCENT 87 % (BEAKER) (test code = 429) LYMPHOCYTES RELATIVE PERCENT 5 % (BEAKER) (test code = 430) MONOCYTES RELATIVE PERCENT 6 % (BEAKER) (test code = 431) EOSINOPHILS RELATIVE PERCENT 2 % (BEAKER) (test code = 432) BASOPHILS RELATIVE PERCENT 0 % (BEAKER) (test code = 437) NEUTROPHILS ABSOLUTE COUNT 10.78 K/ L 1.56-6.13 H (BEAKER) (test code = 670) LYMPHOCYTES ABSOLUTE COUNT 0.56 K/ L 1.18-3.74 L (BEAKER) (test code = 414) MONOCYTES ABSOLUTE COUNT (BEAKER) 0.72 K/ L 0.24-0.36 H (test code = 415) EOSINOPHILS ABSOLUTE COUNT 0.20 K/ L 0.04-0.36 (BEAKER) (test code = 416) BASOPHILS ABSOLUTE COUNT (BEAKER) 0.01 K/ L 0.01-0.08 (test code = 417) IMMATURE GRANULOCYTES-RELATIVE 0.60 % 0.00-1.00 PERCENT (BEAKER) (test code = 2801) OXYGEN SATURATION, [id number] 15:26:26 Test Item Value Reference Range Interpretation Comments O2 SATURATION (MEASURED) (BEAKER) 75.9 % (test code = 1455) XR CHEST 1 VIEW PORTABLE / [id number] 15:25:25 [facility] 1955 Sex: FTECHNIQUE: Frontal view of the chest.INDICATION: DAILY.COMPARISON: 03/15/2023.FINDINGS:LINES/TUBES: Endotracheal tube tip projecting 5.7 cm above the level ofthe yuriy. The esophagogastric tube extends below the diaphragm; tipnot included on this examination. Left IJ central venous catheter rightmain pulmonary artery. Right IJ central venous catheter with tipprojected over the right atrium. Mediastinal and bilateral chest tubesremain present.HEART AND MEDIASTINUM: Cardiomediastinal contour is stable. Prior mediansternotomy. LUNGS: Development of mild interstitial edema. No focal consolidativeprocess.PLEURA: No pneumothorax. No significant pleural effusion.SOFT TISSUES AND BONES: Unremarkable.IMPRESSION:1. Lines and tubes remain unchanged. No pneumothorax.2. Development of mild interstitial edema.Electronically Signed By: Adrián Alarcon03/16/2023 15:27 CDTWorkstation Name: [id number] 12:17:21 Test Item Value Reference Range Interpretation Comments HEMOGLOBIN A1C 5.7 % See_Comment H [Automated m essage] ELECTROPHORESIS (BEAKER) The system which (test code = 3811) generated this result transmitted ref erence range: <=5.6%. The reference range was not used to int erpret this result as normal/abnormal . "The A1c is measured using a [facility]-certified method. HbA1c value equal to or greater than 6.5% as thediagnosis cutoff for diabetes. An HbA1c value of 5.7- 6.4% indicates increased risk for diabetes (prediabetes)."Wheat Washer ID - ADMOperator ID - [id number] 11:28:22 Test Item Value Reference Range Interpretation Comments FIBRINOGEN LEVEL (BEAKER) (test 271 mg/dl 225-434 code = 658) [id number] 11:27:57 Test Item Value Reference Range Interpretation Comments PARTIAL THROMBOPLASTIN TIME 37.0 seconds 22.5-36.0 H (BEAKER) (test code = 760) PROTHROMBIN TIME/[id number] 11:27:20 Test Item Value Reference Range Interpretation Comments PROTIME (BEAKER) 15.7 seconds 11.9-14.2 H (test code = 759) INR (BEAKER) (test 1.28 See_Comment [Automat ed message] code = 370) The system Schedulicityic h generated this result transmitted ref erence range: <=5.90. The reference range was not used to int erpret this result as normal/abnormal . RECOMMENDED COUMADIN/WARFARIN INR THERAPY RANGESSTANDARD DOSE: 2.0 - 3.0 Includes: PROPHYLAXIS for venous thrombosis, systemic embolization; TREATMENT for venous thrombosis and/or pulmonary embolus.HIGH RISK: Target INR is 2.5-3.5 for patients with mechanical heart valves.BASIC METABOLIC [id number] 11:11:56 Test Item Value Reference Range Interpretation Comments SODIUM (BEAKER) 142 meq/L 136-145 (test code = 381) POTASSIUM 4.5 meq/L 3.5-5.1 (BEAKER) (test code = 379) CHLORIDE (BEAKER) 107 meq/L 98-107 (test code = 382) CO2 (BEAKER) 22 meq/L 22-29 (test code = 355) BLOOD UREA 20 mg/dL 7-21 NITROGEN (BEAKER) (test code = 354) CREATININE 2.52 mg/dL 0.57-1.25 H (BEAKER) (test code = 358) GLUCOSE RANDOM 124 mg/dL 70-105 H (BEAKER) (test code = 652) CALCIUM (BEAKER) 9.4 mg/dL 8.4-10.2 (test code = 697) EGFR (BEAKER) 20 Interpretatio n of eGFR (test code = mL/min/1.73 values Stage De scription 1092) sq m Result G1 Keiry l or high >=90 G2 Mildly decreased 60-89 G3a Mildl y to moderately 45-5 9 G3b Moderately to s everely 30-44 G4 Severl y decreased 15-29 G5 Kidney failure <15Reported eGF R is based on the CKD-EPI 2020 equation that d oes not use a race coefficientEsti mated GFR is not as accur ate as Creatinine Birdie lillian in predicting glom erular filtration rate . Estimated GFR is not appl icable for dialysis patien ts Wheat Washer ID - [id number] 11:08:38 Test Item Value Reference Range Interpretation Comments PHOSPHORUS (BEAKER) (test code = 3.0 mg/dL 2.3-4.7 604) Wheat Washer ID - [id number] 11:08:37 Test Item Value Reference Range Interpretation Comments MAGNESIUM (BEAKER) (test code = 2.2 mg/dL 1.6-2.6 627) Wheat Washer ID - EMLACTIC ACID, [id number] 11:02:36 Test Item Value Reference Range Interpretation Comments LACTATE BLOOD ARTERIAL (2) 0.7 mmol/L 0.5-2.0 (BEAKER) (test code = 2874) Wheat Washer ID - EMCBC W/PLT COUNT & AUTO [id number] 10:50:44 Test Item Value Reference Range Interpretation Comments WHITE BLOOD CELL COUNT 11.6 K/ L 3.5-10.5 H (BEAKER) (test code = 775) RED BLOOD CELL COUNT 2.86 M/ L 3.93-5.22 L (BEAKER) (test code = 761) HEMOGLOBIN (BEAKER) (test 7.9 GM/DL 11.2-15.7 L code = 410) HEMATOCRIT (BEAKER) (test 25.4 % 34.1-44.9 L code = 411) MEAN CORPUSCULAR VOLUME 89 fL 79-95 (BEAKER) (test code = 753) MEAN CORPUSCULAR 27.6 pg 25.6-32.2 HEMOGLOBIN (BEAKER) (test code = 751) MEAN CORPUSCULAR 31.1 GM/DL 32.2-35.5 L HEMOGLOBIN CONC (BEAKER) (test code = 752) RED CELL DISTRIBUTION 19.9 % 11.7-14.4 H WIDTH (BEAKER) (test code = 412) PLATELET COUNT (BEAKER) 49 K/CU MM 150-450 L Pt i n procedure. (test code = 756) MEAN PLATELET VOLUME 9.5 fL 9.4-12.3 (BEAKER) (test code = 754) NUCLEATED RED BLOOD CELLS 0 /100 WBC 0-0 (BEAKER) (test code = 413) NEUTROPHILS RELATIVE 85 % PERCENT (BEAKER) (test code = 429) LYMPHOCYTES RELATIVE 6 % PERCENT (BEAKER) (test code = 430) MONOCYTES RELATIVE PERCENT 6 % (BEAKER) (test code = 431) EOSINOPHILS RELATIVE 2 % PERCENT (BEAKER) (test code = 432) BASOPHILS RELATIVE PERCENT 0 % (BEAKER) (test code = 437) NEUTROPHILS ABSOLUTE COUNT 9.87 K/ L 1.56-6.13 H (BEAKER) (test code = 670) LYMPHOCYTES ABSOLUTE COUNT 0.71 K/ L 1.18-3.74 L (BEAKER) (test code = 414) MONOCYTES ABSOLUTE COUNT 0.65 K/ L 0.24-0.36 H (BEAKER) (test code = 415) EOSINOPHILS ABSOLUTE COUNT 0.25 K/ L 0.04-0.36 (BEAKER) (test code = 416) BASOPHILS ABSOLUTE COUNT 0.01 K/ L 0.01-0.08 (BEAKER) (test code = 417) IMMATURE 0.60 % 0.00-1.00 GRANULOCYTES-RELATIVE PERCENT (BEAKER) (test code = 2801) HGB/HCT (H&H) - STAT [id number] 10:45:54 Test Item Value Reference Range Interpretation Comments HEMOGLOBIN (BEAKER) (test code = 8.9 GM/DL 12.0-15.0 L 410) HEMATOCRIT (BEAKER) (test code = 26.0 % 36.0-45.0 L 411) BLOOD GAS, [id number] 10:45:53 Test Item Value Reference Range Interpretation Comments PH ARTERIAL (BEAKER) (test code = 7.41 7.35-7.45 383) PCO2 ARTERIAL (BEAKER) (test code 36 mm Hg 35-45 = 384) PO2 ARTERIAL (BEAKER) (test code 200 mm Hg 80-90 H = 385) O2 SATURATION ARTERIAL (BEAKER) 99.4 % 96.0-97.0 H (test code = 386) HCO3 ARTERIAL (BEAKER) (test code 22 mmol/L 21-29 = 388) BASE EXCESS ARTERIAL (BEAKER) -2.2 mmol/L -2.0-3.0 L (test code = 387) PATIENT TEMPERATURE (BEAKER) 37.0 (test code = 1818) FIO2 (BEAKER) (test code = 1819) 21.0 POTASSIUM-STAT [id number] 10:45:32 Test Item Value Reference Range Interpretation Comments POTASSIUM (BEAKER) (test code = 4.3 meq/L 3.6-5.5 379) GLUCOSE-STAT [id number] 10:45:31 Test Item Value Reference Range Interpretation Comments GLUCOSE RANDOM (BEAKER) (test code 123 mg/dL 70-110 H = 652) SODIUM NA-STAT [id number] 10:45:31 Test Item Value Reference Range Interpretation Comments SODIUM (BEAKER) (test code = 381) 137 meq/L 136-145 POCT-GLUCOSE [id number] 07:55:18 Test Item Value Reference Range Interpretation Comments POC-GLUCOSE METER 127 mg/dL 70-110 H : TESTED A T [facility] 6720 (BEAKER) (test code = [facility], 1538) [address]: Wheat Washer/Techni patricia ID = [id number] for ZACK MICHAEL [id number] 06:33:18 Test Item Value Reference Range Interpretation Comments ACTIVATED CLOTTING TIME 113 sec : 74 -137 seconds, (BEAKER) (test code = Mani ne: TESTED AT 441) [facility] [address] [facility], [address]: Wheat Washer/Techni patriica ID = [id number] for ISABELLA SOARES [id number] 06:33:18 Test Item Value Reference Range Interpretation Comments ACTIVATED CLOTTING TIME 420 sec : 74 -137 seconds, (BEAKER) (test code = Baseli ne: TESTED AT 441) [address], [address]: Wheat Washer/Techni patricia ID = [id number] for NG NGOZI, DUNG [id number] 06:33:17 Test Item Value Reference Range Interpretation Comments ACTIVATED CLOTTING TIME 408 sec : 74 -137 seconds, (BEAKER) (test code = Baseli ne: TESTED AT 441) [address], [address]: Wheat Washer/Techni patricia ID = [id number] for NG NGOZI, DUNG [id number] 06:32:50 Test Item Value Reference Range Interpretation Comments ACTIVATED CLOTTING TIME 498 sec : 74 -137 seconds, (BEAKER) (test code = Baseli ne: TESTED AT 441) [address], [address]: Wheat Washer/Techni patricia ID = [id number] for NG NGOZI, DUNG [id number] 06:32:50 Test Item Value Reference Range Interpretation Comments ACTIVATED CLOTTING TIME 612 sec : 74 -137 seconds, (BEAKER) (test code = Baseli ne: TESTED AT 441) [address], [address]: Wheat Washer/Techni patricia ID = [id number] for NG NGOZI, DUNG [id number] 06:32:49 Test Item Value Reference Range Interpretation Comments ACTIVATED CLOTTING TIME 426 sec : 74 -137 seconds, (BEAKER) (test code = Baseli ne: TESTED AT 441) [address], [facility] 30: Wheat Washer/Techni patricia ID = [id number] for NG NGOZI, DUNG [id number] 05:04:24 Test Item Value Reference Range Interpretation Comments FIBRINOGEN LEVEL (BEAKER) (test 320 mg/dl 225-434 code = 658) HEPATIC FUNCTION [id number] 03:43:40 Test Item Value Reference Range Interpretation Comments TOTAL PROTEIN (BEAKER) (test code = 5.3 gm/dL 6.0-8.3 L 770) ALBUMIN (BEAKER) (test code = 1145) 3.1 g/dL 3.5-5.0 L BILIRUBIN TOTAL (BEAKER) (test code 1.0 mg/dL 0.2-1.2 = 377) BILIRUBIN DIRECT (BEAKER) (test 0.6 mg/dL 0.1-0.5 H code = 706) ALKALINE PHOSPHATASE (BEAKER) (test 60 U/L 40-150 code = 346) AST (SGOT) (BEAKER) (test code = 19 U/L 5-34 353) ALT (SGPT) (BEAKER) (test code = < U/L 6-55 L 347) Wheat Washer ID - ADMINOXYGEN SATURATION, [id number] 03:20:18 Test Item Value Reference Range Interpretation Comments O2 SATURATION (MEASURED) (BEAKER) 59.3 % (test code = 1455) COMPREHENSIVE METABOLIC [id number] 03:19:45 Test Item Value Reference Range Interpretation Comments TOTAL PROTEIN 5.2 gm/dL 6.0-8.3 L (BEAKER) (test code = 770) ALBUMIN (BEAKER) 3.1 g/dL 3.5-5.0 L (test code = 1145) ALKALINE 61 U/L 40-150 PHOSPHATASE (BEAKER) (test code = 346) BILIRUBIN TOTAL 0.9 mg/dL 0.2-1.2 (BEAKER) (test code = 377) SODIUM (BEAKER) 143 meq/L 136-145 (test code = 381) POTASSIUM (BEAKER) 4.5 meq/L 3.5-5.1 (test code = 379) CHLORIDE (BEAKER) 108 meq/L 98-107 H (test code = 382) CO2 (BEAKER) (test 25 meq/L 22-29 code = 355) BLOOD UREA 25 mg/dL 7-21 H NITROGEN (BEAKER) (test code = 354) CREATININE 3.05 mg/dL 0.57-1.25 H (BEAKER) (test code = 358) GLUCOSE RANDOM 118 mg/dL 70-105 H (BEAKER) (test code = 652) CALCIUM (BEAKER) 9.3 mg/dL 8.4-10.2 (test code = 697) AST (SGOT) 22 U/L 5-34 (BEAKER) (test code = 353) ALT (SGPT) < U/L 6-55 L (BEAKER) (test code = 347) EGFR (BEAKER) 16 Interpretatio n of eGFR (test code = 1092) mL/min/1.[address] age Description sq m Result G1 Keiry l or high >=90 G2 Mildly decreased 60-89 G3a Mildl y to moderately 45-5 9 G3b Moderately to s everely 30-44 G4 Severl y decreased 15-29 G5 Kidney failure <15Reported eGF R is based on the CKD-EPI 2020 equation that d oes not use a race coefficientEsti mated GFR is not as accur ate as Creatinine Birdie lillian in predicting glom erular filtration rate . Estimated GFR is not appl icable for dialysis patien ts Wheat Washer ID - EMBLOOD GAS, [id number] 03:16:01 Test Item Value Reference Range Interpretation Comments PH ARTERIAL (BEAKER) (test code = 7.47 7.35-7.45 H 383) PCO2 ARTERIAL (BEAKER) (test code 34 mm Hg 35-45 L = 384) PO2 ARTERIAL (BEAKER) (test code = 141 mm Hg 80-90 H 385) O2 SATURATION ARTERIAL (BEAKER) 99.0 % 96.0-97.0 H (test code = 386) HCO3 ARTERIAL (BEAKER) (test code 24 mmol/L 21-29 = 388) BASE EXCESS ARTERIAL (BEAKER) 0.4 mmol/L -2.0-3.0 (test code = 387) PATIENT TEMPERATURE (BEAKER) (test 35.6 code = 1818) FIO2 (BEAKER) (test code = 1819) 40.0 CALCIUM, [id number] 03:14:59 Test Item Value Reference Range Interpretation Comments CALCIUM IONIZED (BEAKER) (test 1.24 mmol/L 1.12-1.27 code = 698) PH, BLOOD (BEAKER) (test code = 7.44 1810) GLUCOSE-STAT [id number] 03:14:38 Test Item Value Reference Range Interpretation Comments GLUCOSE RANDOM (BEAKER) (test code 105 mg/dL 70-110 = 652) [id number] 03:11:41 Test Item Value Reference Range Interpretation Comments MAGNESIUM (BEAKER) (test code = 2.4 mg/dL 1.6-2.6 627) Wheat [employer]her ID - EMLIPID [id number] 03:11:41 Test Item Value Reference Range Interpretation Comments TRIGLYCERIDES (BEAKER) (test code = 113 mg/dL 540) CHOLESTEROL (BEAKER) (test code = 80 mg/dL 631) HDL CHOLESTEROL (BEAKER) (test code 20 mg/dL = 976) LDL CHOLESTEROL CALCULATED (BEAKER) 37 mg/dL (test code = 633) Triglyceride Reference Range: Low Risk <150 Borderline 150-199 High Risk 200- 499 Very High Risk >=500Cholesterol Reference Range: Low Risk <200 Borderline 200-239 High Risk >240HDL Cholesterol Reference Range: Low Risk >=60 High Risk <40LDL Cholesterol Reference Range: Optimal <100 Near Optimal 100-129 Borderline 130-159 High 160-189 Very High >=190 Wheat Washer ID - [id number] 02:56:31 Test Item Value Reference Range Interpretation Comments PARTIAL THROMBOPLASTIN TIME 32.4 seconds 22.5-36.0 (BEAKER) (test code = 760) PROTHROMBIN [id number] 02:55:56 Test Item Value Reference Range Interpretation Comments PROTIME (BEAKER) 16.3 seconds 11.9-14.2 H (test code = 759) INR (BEAKER) (test 1.35 See_Comment [Automat ed message] code = 370) The system 51wan generated this result transmitted ref erence range: <=5.90. The reference range was not used to int erpret this result as normal/abnormal . RECOMMENDED COUMADIN/WARFARIN INR THERAPY RANGESSTANDARD DOSE: 2.0 - 3.0 Includes: PROPHYLAXIS for venous thrombosis, systemic embolization; TREATMENT for venous thrombosis and/or pulmonary embolus.HIGH RISK: Target INR is 2.5-3.5 for patients with mechanical heart valves.LACTIC ACID, [id number] 02:53:08 Test Item Value Reference Range Interpretation Comments LACTATE BLOOD ARTERIAL (2) 0.8 mmol/L 0.5-2.0 (BEAKER) (test code = 2874) Wheat [employer]her ID - ADMINCBC W/PLT COUNT & AUTO [id number] 02:46:37 Test Item Value Reference Range Interpretation Comments WHITE BLOOD CELL COUNT (BEAKER) 13.8 K/ L 3.5-10.5 H (test code = 775) RED BLOOD CELL COUNT (BEAKER) 2.73 M/ L 3.93-5.22 L (test code = 761) HEMOGLOBIN (BEAKER) (test code = 7.7 GM/DL 11.2-15.7 L 410) HEMATOCRIT (BEAKER) (test code = 24.3 % 34.1-44.9 L 411) MEAN CORPUSCULAR VOLUME (BEAKER) 89 fL 79-95 (test code = 753) MEAN CORPUSCULAR HEMOGLOBIN 28.2 pg 25.6-32.2 (BEAKER) (test code = 751) MEAN CORPUSCULAR HEMOGLOBIN CONC 31.7 GM/DL 32.2-35.5 L (BEAKER) (test code = 752) RED CELL DISTRIBUTION WIDTH 19.9 % 11.7-14.4 H (BEAKER) (test code = 412) PLATELET COUNT (BEAKER) (test code 99 K/CU MM 150-450 L = 756) MEAN PLATELET VOLUME (BEAKER) 9.1 fL 9.4-12.3 L (test code = 754) NUCLEATED RED BLOOD CELLS (BEAKER) 0 /100 WBC 0-0 (test code = 413) NEUTROPHILS RELATIVE PERCENT 89 % (BEAKER) (test code = 429) LYMPHOCYTES RELATIVE PERCENT 4 % (BEAKER) (test code = 430) MONOCYTES RELATIVE PERCENT 5 % (BEAKER) (test code = 431) EOSINOPHILS RELATIVE PERCENT 1 % (BEAKER) (test code = 432) BASOPHILS RELATIVE PERCENT 0 % (BEAKER) (test code = 437) NEUTROPHILS ABSOLUTE COUNT 12.34 K/ L 1.56-6.13 H (BEAKER) (test code = 670) LYMPHOCYTES ABSOLUTE COUNT 0.56 K/ L 1.18-3.74 L (BEAKER) (test code = 414) MONOCYTES ABSOLUTE COUNT (BEAKER) 0.68 K/ L 0.24-0.36 H (test code = 415) EOSINOPHILS ABSOLUTE COUNT 0.11 K/ L 0.04-0.36 (BEAKER) (test code = 416) BASOPHILS ABSOLUTE COUNT (BEAKER) 0.03 K/ L 0.01-0.08 (test code = 417) IMMATURE GRANULOCYTES-RELATIVE 0.80 % 0.00-1.00 PERCENT (BEAKER) (test code = 2801) [id number] 01:16:36 Test Item Value Reference Range Interpretation Comments POTASSIUM (BEAKER) (test code = 4.5 meq/L 3.5-5.1 379) Wheat Washer ID - ADMINLACTIC ACID, [id number] 01:12:59 Test Item Value Reference Range Interpretation Comments LACTATE BLOOD ARTERIAL (2) 0.8 mmol/L 0.5-2.0 (BEAKER) (test code = 2874) Wheat Washer ID - ADMINBLOOD GAS, [id number] 00:27:11 Test Item Value Reference Range Interpretation Comments PH ARTERIAL (BEAKER) (test code = 7.45 7.35-7.45 383) PCO2 ARTERIAL (BEAKER) (test code 37 mm Hg 35-45 = 384) PO2 ARTERIAL (BEAKER) (test code = 154 mm Hg 80-90 H 385) O2 SATURATION ARTERIAL (BEAKER) 99.1 % 96.0-97.0 H (test code = 386) HCO3 ARTERIAL (BEAKER) (test code 25 mmol/L 21-29 = 388) BASE EXCESS ARTERIAL (BEAKER) 0.6 mmol/L -2.0-3.0 (test code = 387) PATIENT TEMPERATURE (BEAKER) (test 36.0 code = 1818) FIO2 (BEAKER) (test code = 1819) 40.0 HGB/HCT (H&H) - STAT [id number] 00:27:11 Test Item Value Reference Range Interpretation Comments HEMOGLOBIN (BEAKER) (test code = 8.4 GM/DL 12.0-15.0 L 410) HEMATOCRIT (BEAKER) (test code = 25.0 % 36.0-45.0 L 411) POTASSIUM-STAT [id number] 00:26:36 Test Item Value Reference Range Interpretation Comments POTASSIUM (BEAKER) (test code = 4.2 meq/L 3.6-5.5 379) SODIUM NA-STAT [id number] 00:26:35 Test Item Value Reference Range Interpretation Comments SODIUM (BEAKER) (test code = 381) 137 meq/L 136-145 GLUCOSE-STAT [id number] 00:26:34 Test Item Value Reference Range Interpretation Comments GLUCOSE RANDOM (BEAKER) (test code 135 mg/dL 70-110 H = 652) LACTIC ACID, [id number] 22:17:42 Test Item Value Reference Range Interpretation Comments LACTATE BLOOD ARTERIAL (2) 1.5 mmol/L 0.5-2.0 (BEAKER) (test code = 2874) Wheat Washer ID - ADMINHGB/HCT (H&H) - STAT [id number] 22:11:05 Test Item Value Reference Range Interpretation Comments HEMOGLOBIN (BEAKER) (test code = 9.0 GM/DL 12.0-15.0 L 410) HEMATOCRIT (BEAKER) (test code = 26.0 % 36.0-45.0 L 411) BLOOD GAS, [id number] 22:11:04 Test Item Value Reference Range Interpretation Comments PH ARTERIAL (BEAKER) (test code = 7.47 7.35-7.45 H 383) PCO2 ARTERIAL (BEAKER) (test code 34 mm Hg 35-45 L = 384) PO2 ARTERIAL (BEAKER) (test code = 196 mm Hg 80-90 H 385) O2 SATURATION ARTERIAL (BEAKER) 99.4 % 96.0-97.0 H (test code = 386) HCO3 ARTERIAL (BEAKER) (test code 24 mmol/L 21-29 = 388) BASE EXCESS ARTERIAL (BEAKER) 0.4 mmol/L -2.0-3.0 (test code = 387) PATIENT TEMPERATURE (BEAKER) (test 36.8 code = 1818) FIO2 (BEAKER) (test code = 1819) 60.0 POTASSIUM-STAT [id number] 22:10:22 Test Item Value Reference Range Interpretation Comments POTASSIUM (BEAKER) (test code = 4.7 meq/L 3.6-5.5 379) GLUCOSE-STAT [id number] 22:10:21 Test Item Value Reference Range Interpretation Comments GLUCOSE RANDOM (BEAKER) (test code 162 mg/dL 70-110 H = 652) SODIUM NA-STAT [id number] 22:10:21 Test Item Value Reference Range Interpretation Comments SODIUM (BEAKER) (test code = 381) 137 meq/L 136-145 THROMBOELASTOGRAPH (TEG)2023-03-15 21:39:52 Test Item Value Reference Range Interpretation Comments TEG ACTIVATED CLOTTING TIME 6.9 minutes 4.0-7.0 (BEAKER) (test code = 1407) TEG FIBRINOGEN ACTIVITY (BEAKER) 64.0 degrees 61.0-73.0 (test code = 1408) TEG PLT. AGGREGATION (BEAKER) 66.6 MM 55.0-65.0 H (test code = 1409) TEG FIBRINOLYSIS (BEAKER) (test 0.1 % 0.0-5.0 code = 1410) TGH ACTIVATED CLOTTING TIME 6.3 minutes 4.0-7.0 (BEAKER) (test code = 1411) TGH FIBRINOGEN ACTIVITY (BEAKER) 71.5 degrees 61.0-73.0 (test code = 1412) TGH PLT. AGGREGATION (BEAKER) 66.5 MM 55.0-65.0 H (test code = 1413) TGH FIBRINOLYSIS (BEAKER) (test 0.3 % 0.0-5.0 code = 1414) XR CHEST 1 VIEW PORTABLE / [id number] 21:21:05 [facility] : 1955 Sex: FTECHNIQUE: Frontal view of the chest.INDICATION: s/p ACB; Vent.COMPARISON: 03/06/2023.FINDINGS:LINES/TUBES:Endotracheal tube tip projecting approximately 5.4 cm abovethe level of the yuriy. Left IJ Secor-Delicia catheter with tip projectingover the right main pulmonary artery. Esophagogastric tube tip projectsover the proximal stomach; sidehole not definitively identified on thisexamination. Mediastinal tube is present. Bilateral chest tubes arenoted. Large bore right IJ central venous catheter with tip projectingover the right atrium.HEART AND MEDIASTINUM: Cardiomediastinal contour is within normallimits. There has been interval median sternotomy and CABG.LUNGS: The lungs are well inflated and clear. No consolidation orpulmonary edema.PLEURA: No pneumothorax. No significant pleural effusion.SOFT TISSUES AND BONES: Unremarkable.IMPRESSION:1. Lines and tubes, as detailed above. No pneumothorax.2. No overtedema or focal consolidative process.Electronically Signed By: Adrián Alarcon03/15/2023 21:23 CDTWorkstation Name: [id number] 20:28:28 Test Item Value Reference Range Interpretation Comments PROTIME (BEAKER) (test 16.6 seconds 11.9-14.2 H code = 759) INR (BEAKER) (test 1.38 See_Comment [Automat ed code = 370) message] The sy stem which generated this result transmitted reference range : <=5.90. The reference range was not used to interpret this result as normal/abnormal . PARTIAL THROMBOPLASTIN 29.7 seconds 22.5-36.0 TIME (BEAKER) (test code = 760) RECOMMENDED COUMADIN/WARFARIN INR THERAPY RANGESSTANDARD DOSE: 2.0 - 3.0 Includes: PROPHYLAXIS for venous thrombosis, systemic embolization; TREATMENT for venous thrombosis and/or pulmonary embolus.HIGH RISK: Target INR is 2.5-3.5 for patients with mechanical heart valves.PROTHROMBIN [id number] 20:27:48 Test Item Value Reference Range Interpretation Comments PROTIME (BEAKER) 16.6 seconds 11.9-14.2 H (test code = 759) INR (BEAKER) (test 1.38 See_Comment [Automat ed message] code = 370) The system [employer] h generated this result transmitted ref erence range: <=5.90. The reference range was not used to int erpret this result as normal/abnormal . RECOMMENDED COUMADIN/WARFARIN INR THERAPY RANGESSTANDARD DOSE: 2.0 - 3.0 Includes: PROPHYLAXIS for venous thrombosis, systemic embolization; TREATMENT for venous thrombosis and/or pulmonary embolus.HIGH RISK: Target INR is 2.5-3.5 for patients with mechanical heart valves.COMPREHENSIVE METABOLIC PANEL 2023-03-15 20:17:06 Test Item Value Reference Range Interpretation Comments TOTAL PROTEIN 5.4 gm/dL 6.0-8.3 L (BEAKER) (test code = 770) ALBUMIN (BEAKER) 3.0 g/dL 3.5-5.0 L (test code = 1145) ALKALINE 71 U/L 40-150 PHOSPHATASE (BEAKER) (test code = 346) BILIRUBIN TOTAL 1.1 mg/dL 0.2-1.2 (BEAKER) (test code = 377) SODIUM (BEAKER) 141 meq/L 136-145 (test code = 381) POTASSIUM (BEAKER) 5.0 meq/L 3.5-5.1 (test code = 379) CHLORIDE (BEAKER) 106 meq/L 98-107 (test code = 382) CO2 (BEAKER) (test 18 meq/L 22-29 L code = 355) BLOOD UREA 28 mg/dL 7-21 H NITROGEN (BEAKER) (test code = 354) CREATININE 3.67 mg/dL 0.57-1.25 H (BEAKER) (test code = 358) GLUCOSE RANDOM 219 mg/dL 70-105 H (BEAKER) (test code = 652) CALCIUM (BEAKER) 9.9 mg/dL 8.4-10.2 (test code = 697) AST (SGOT) 22 U/L 5-34 (BEAKER) (test code = 353) ALT (SGPT) 6 U/L 6-55 (BEAKER) (test code = 347) EGFR (BEAKER) 13 Interpretatio n of eGFR (test code = 1092) mL/min/1.[address] age Description sq m Result G1 Keiry l or high >=90 G2 Mildly decreased 60-89 G3a Mildl y to moderately 45-5 9 G3b Moderately to s everely 30-44 G4 Severl y decreased 15-29 G5 Kidney failure <15Reported eGF R is based on the CKD-EPI 2020 equation that d oes not use a race coefficientEsti mated GFR is not as accur ate as Creatinine Birdie lillian in predicting glom erular filtration rate . Estimated GFR is not appl icable for dialysis patien ts Wheat Washer ID - [id number] 20:16:46 Test Item Value Reference Range Interpretation Comments PHOSPHORUS (BEAKER) (test code = 5.1 mg/dL 2.3-4.7 H 604) Wheat Washer ID - [id number] 20:16:45 Test Item Value Reference Range Interpretation Comments MAGNESIUM (BEAKER) (test code = 2.8 mg/dL 1.6-2.6 H 627) Wheat Washer ID - ADMINLACTIC ACID, [id number] 20:10:25 Test Item Value Reference Range Interpretation Comments LACTATE BLOOD 1.7 mmol/L 0.5-2.0 Specimen sligh tly ARTERIAL (2) (BEAKER) hemoly zed (test code = 2874) Wheat Washer ID - EMCBC W/PLT COUNT & AUTO [id number] 20:08:41 Test Item Value Reference Range Interpretation Comments WHITE BLOOD CELL COUNT 21.2 K/ L 3.5-10.5 H (BEAKER) (test code = 775) RED BLOOD CELL COUNT (BEAKER) 3.23 M/ L 3.93-5.22 L (test code = 761) HEMOGLOBIN (BEAKER) (test 9.1 GM/DL 11.2-15.7 L code = 410) HEMATOCRIT (BEAKER) (test 29.6 % 34.1-44.9 L code = 411) MEAN CORPUSCULAR VOLUME 92 fL 79-95 hemo dilution (BEAKER) (test code = 753) MEAN CORPUSCULAR HEMOGLOBIN 28.2 pg 25.6-32.2 (BEAKER) (test code = 751) MEAN CORPUSCULAR HEMOGLOBIN 30.7 GM/DL 32.2-35.5 L CONC (BEAKER) (test code = 752) RED CELL DISTRIBUTION WIDTH 19.2 % 11.7-14.4 H (BEAKER) (test code = 412) PLATELET COUNT (BEAKER) (test 142 K/CU MM 150-450 L code = 756) MEAN PLATELET VOLUME (BEAKER) 8.8 fL 9.4-12.3 L (test code = 754) NUCLEATED RED BLOOD CELLS 0 /100 WBC 0-0 (BEAKER) (test code = 413) NEUTROPHILS RELATIVE PERCENT 90 % (BEAKER) (test code = 429) LYMPHOCYTES RELATIVE PERCENT 4 % (BEAKER) (test code = 430) MONOCYTES RELATIVE PERCENT 4 % (BEAKER) (test code = 431) EOSINOPHILS RELATIVE PERCENT 1 % (BEAKER) (test code = 432) BASOPHILS RELATIVE PERCENT 0 % (BEAKER) (test code = 437) NEUTROPHILS ABSOLUTE COUNT 19.04 K/ L 1.56-6.13 H (BEAKER) (test code = 670) LYMPHOCYTES ABSOLUTE COUNT 0.79 K/ L 1.18-3.74 L (BEAKER) (test code = 414) MONOCYTES ABSOLUTE COUNT 0.93 K/ L 0.24-0.36 H (BEAKER) (test code = 415) EOSINOPHILS ABSOLUTE COUNT 0.19 K/ L 0.04-0.36 (BEAKER) (test code = 416) BASOPHILS ABSOLUTE COUNT 0.03 K/ L 0.01-0.08 (BEAKER) (test code = 417) IMMATURE 0.90 % 0.00-1.00 GRANULOCYTES-RELATIVE PERCENT (BEAKER) (test code = 2801) CALCIUM, [id number] 20:01:01 Test Item Value Reference Range Interpretation Comments CALCIUM IONIZED (BEAKER) (test 1.26 mmol/L 1.12-1.27 code = 698) PH, BLOOD (BEAKER) (test code = 7.33 1810) HGB/HCT (H&H) - STAT [id number] 20:00:39 Test Item Value Reference Range Interpretation Comments HEMOGLOBIN (BEAKER) (test code = 10.0 GM/DL 12.0-15.0 L 410) HEMATOCRIT (BEAKER) (test code = 29.0 % 36.0-45.0 L 411) BLOOD GAS, [id number] 20:00:33 Test Item Value Reference Range Interpretation Comments PH ARTERIAL (BEAKER) (test code = 7.34 7.35-7.45 L 383) PCO2 ARTERIAL (BEAKER) (test code 46 mm Hg 35-45 H = 384) PO2 ARTERIAL (BEAKER) (test code 154 mm Hg 80-90 H = 385) O2 SATURATION ARTERIAL (BEAKER) 98.9 % 96.0-97.0 H (test code = 386) HCO3 ARTERIAL (BEAKER) (test code 24 mmol/L 21-29 = 388) BASE EXCESS ARTERIAL (BEAKER) -1.7 mmol/L -2.0-3.0 (test code = 387) PATIENT TEMPERATURE (BEAKER) 36.4 (test code = 1818) FIO2 (BEAKER) (test code = 1819) 60.0 OXYGEN SATURATION, [id number] 19:57:02 Test Item Value Reference Range Interpretation Comments O2 SATURATION (MEASURED) (BEAKER) 63.6 % (test code = 1455) POTASSIUM-STAT [id number] 19:56:44 Test Item Value Reference Range Interpretation Comments POTASSIUM (BEAKER) (test code = 4.8 meq/L 3.6-5.5 379) GLUCOSE-STAT [id number] 19:56:43 Test Item Value Reference Range Interpretation Comments GLUCOSE RANDOM (BEAKER) (test code 207 mg/dL 70-110 H = 652) SODIUM NA-STAT [id number] 19:56:43 Test Item Value Reference Range Interpretation Comments SODIUM (BEAKER) (test code = 381) 137 meq/L 136-145 [id number] 19:07:33 Test Item Value Reference Range Interpretation Comments PARTIAL THROMBOPLASTIN TIME 27.1 seconds 22.5-36.0 (BEAKER) (test code = 760) [id number] 19:07:32 Test Item Value Reference Range Interpretation Comments FIBRINOGEN LEVEL (BEAKER) (test 318 mg/dl 225-434 code = 658) PROTHROMBIN [id number] 19:07:16 Test Item Value Reference Range Interpretation Comments PROTIME (BEAKER) 17.6 seconds 11.9-14.2 H (test code = 759) INR (BEAKER) (test 1.54 See_Comment [Automat ed message] code = 370) The system [employer] generated this result transmitted ref erence range: <=5.90. The reference range was not used to int erpret this result as normal/abnormal . RECOMMENDED COUMADIN/WARFARIN INR THERAPY RANGESSTANDARD DOSE: 2.0 - 3.0 Includes: PROPHYLAXIS for venous thrombosis, systemic embolization; TREATMENT for venous thrombosis and/or pulmonary embolus.HIGH RISK: Target INR is 2.5-3.5 for patients with mechanical heart valves.CALCIUM, [id number] 19:06:53 Test Item Value Reference Range Interpretation Comments CALCIUM IONIZED (BEAKER) (test 1.25 mmol/L 1.12-1.27 code = 698) PH, BLOOD (BEAKER) (test code = 7.35 1810) HGB/HCT (H&H) - STAT [id number] 19:06:05 Test Item Value Reference Range Interpretation Comments HEMOGLOBIN (BEAKER) (test code = 9.5 GM/DL 12.0-15.0 L 410) HEMATOCRIT (BEAKER) (test code = 28.0 % 36.0-45.0 L 411) BLOOD GAS, [id number] 19:05:59 Test Item Value Reference Range Interpretation Comments PH ARTERIAL (BEAKER) (test code = 7.35 7.35-7.45 383) PCO2 ARTERIAL (BEAKER) (test code 44 mm Hg 35-45 = 384) PO2 ARTERIAL (BEAKER) (test code 294 mm Hg 80-90 H = 385) O2 SATURATION ARTERIAL (BEAKER) 99.6 % 96.0-97.0 H (test code = 386) HCO3 ARTERIAL (BEAKER) (test code 23 mmol/L 21-29 = 388) BASE EXCESS ARTERIAL (BEAKER) -2.3 mmol/L -2.0-3.0 L (test code = 387) PATIENT TEMPERATURE (BEAKER) 37.0 (test code = 1818) FIO2 (BEAKER) (test code = 1819) 100.0 POTASSIUM-STAT [id number] 19:02:35 Test Item Value Reference Range Interpretation Comments POTASSIUM (BEAKER) (test code = 5.1 meq/L 3.6-5.5 379) SODIUM NA-STAT [id number] 19:02:34 Test Item Value Reference Range Interpretation Comments SODIUM (BEAKER) (test code = 381) 136 meq/L 136-145 GLUCOSE-STAT [id number] 19:02:33 Test Item Value Reference Range Interpretation Comments GLUCOSE RANDOM (BEAKER) (test code 222 mg/dL 70-110 H = 652) PLATELET [id number] 18:50:32 Test Item Value Reference Range Interpretation Comments PLATELET COUNT (BEAKER) (test 142 K/CU MM 150-450 L code = 756) Wheat Washer ID - 6000HGB/HCT (H&H) - STAT [id number] 18:37:10 Test Item Value Reference Range Interpretation Comments HEMOGLOBIN (BEAKER) (test code = 7.8 GM/DL 12.0-15.0 L 410) HEMATOCRIT (BEAKER) (test code = 23.0 % 36.0-45.0 L 411) BLOOD GAS, [id number] 18:37:09 Test Item Value Reference Range Interpretation Comments PH ARTERIAL (BEAKER) (test code = 7.34 7.35-7.45 L 383) PCO2 ARTERIAL (BEAKER) (test code 47 mm Hg 35-45 H = 384) PO2 ARTERIAL (BEAKER) (test code 365 mm Hg 80-90 H = 385) O2 SATURATION ARTERIAL (BEAKER) 99.8 % 96.0-97.0 H (test code = 386) HCO3 ARTERIAL (BEAKER) (test code 25 mmol/L 21-29 = 388) BASE EXCESS ARTERIAL (BEAKER) -0.8 mmol/L -2.0-3.0 (test code = 387) PATIENT TEMPERATURE (BEAKER) 37.0 (test code = 1818) FIO2 (BEAKER) (test code = 1819) 100.0 CALCIUM, [id number] 18:36:58 Test Item Value Reference Range Interpretation Comments CALCIUM IONIZED (BEAKER) (test 1.15 mmol/L 1.12-1.27 code = 698) PH, BLOOD (BEAKER) (test code = 7.34 1810) POTASSIUM-STAT [id number] 18:36:35 Test Item Value Reference Range Interpretation Comments POTASSIUM (BEAKER) (test code = 4.7 meq/L 3.6-5.5 379) GLUCOSE-STAT [id number] 18:36:34 Test Item Value Reference Range Interpretation Comments GLUCOSE RANDOM (BEAKER) (test code 234 mg/dL 70-110 H = 652) SODIUM NA-STAT [id number] 18:36:34 Test Item Value Reference Range Interpretation Comments SODIUM (BEAKER) (test code = 381) 138 meq/L 136-145 [id number] 18:22:42 Test Item Value Reference Range Interpretation Comments PARTIAL THROMBOPLASTIN TIME > seconds 22.5-36.0 HH (BEAKER) (test code = 760) CALCIUM, [id number] 17:40:17 Test Item Value Reference Range Interpretation Comments CALCIUM IONIZED (BEAKER) (test 1.19 mmol/L 1.12-1.27 code = 698) PH, BLOOD (BEAKER) (test code = 7.34 1810) HGB/HCT (H&H) - STAT [id number] 17:39:54 Test Item Value Reference Range Interpretation Comments HEMOGLOBIN (BEAKER) (test code = 7.2 GM/DL 12.0-15.0 L 410) HEMATOCRIT (BEAKER) (test code = 21.0 % 36.0-45.0 L 411) BLOOD GAS, [id number] 17:39:53 Test Item Value Reference Range Interpretation Comments PH ARTERIAL (BEAKER) (test code = 7.35 7.35-7.45 383) PCO2 ARTERIAL (BEAKER) (test code 45 mm Hg 35-45 = 384) PO2 ARTERIAL (BEAKER) (test code 290 mm Hg 80-90 H = 385) O2 SATURATION ARTERIAL (BEAKER) 99.6 % 96.0-97.0 H (test code = 386) HCO3 ARTERIAL (BEAKER) (test code 24 mmol/L 21-29 = 388) BASE EXCESS ARTERIAL (BEAKER) -1.5 mmol/L -2.0-3.0 (test code = 387) PATIENT TEMPERATURE (BEAKER) 36.8 (test code = 1818) FIO2 (BEAKER) (test code = 1819) 100.0 SODIUM NA-STAT [id number] 17:39:41 Test Item Value Reference Range Interpretation Comments SODIUM (BEAKER) (test code = 381) 135 meq/L 136-145 L POTASSIUM-STAT [id number] 17:39:41 Test Item Value Reference Range Interpretation Comments POTASSIUM (BEAKER) (test code = 5.3 meq/L 3.6-5.5 379) GLUCOSE-STAT [id number] 17:39:40 Test Item Value Reference Range Interpretation Comments GLUCOSE RANDOM (BEAKER) (test code 236 mg/dL 70-110 H = 652) HGB/HCT (H&H) - STAT [id number] 17:16:48 Test Item Value Reference Range Interpretation Comments HEMOGLOBIN (BEAKER) (test code = 8.1 GM/DL 12.0-15.0 L 410) HEMATOCRIT (BEAKER) (test code = 24.0 % 36.0-45.0 L 411) BLOOD GAS, [id number] 17:16:42 Test Item Value Reference Range Interpretation Comments PH ARTERIAL (BEAKER) (test code = 7.39 7.35-7.45 383) PCO2 ARTERIAL (BEAKER) (test code 42 mm Hg 35-45 = 384) PO2 ARTERIAL (BEAKER) (test code 327 mm Hg 80-90 H = 385) O2 SATURATION ARTERIAL (BEAKER) 99.7 % 96.0-97.0 H (test code = 386) HCO3 ARTERIAL (BEAKER) (test code 25 mmol/L 21-29 = 388) BASE EXCESS ARTERIAL (BEAKER) -0.3 mmol/L -2.0-3.0 (test code = 387) PATIENT TEMPERATURE (BEAKER) 36.8 (test code = 1818) FIO2 (BEAKER) (test code = 1819) 90.0 POTASSIUM-STAT [id number] 17:16:37 Test Item Value Reference Range Interpretation Comments POTASSIUM (BEAKER) (test code = 5.4 meq/L 3.6-5.5 379) SODIUM NA-STAT [id number] 17:16:36 Test Item Value Reference Range Interpretation Comments SODIUM (BEAKER) (test code = 381) 135 meq/L 136-145 L GLUCOSE-STAT [id number] 17:16:35 Test Item Value Reference Range Interpretation Comments GLUCOSE RANDOM (BEAKER) (test code 191 mg/dL 70-110 H = 652) [id number] 17:06:14 Test Item Value Reference Range Interpretation Comments FIBRINOGEN LEVEL (BEAKER) (test 235 mg/dl 225-434 code = 658) PROTHROMBIN [id number] 17:05:50 Test Item Value Reference Range Interpretation Comments PROTIME (BEAKER) 28.0 seconds 11.9-14.2 H (test code = 759) INR (BEAKER) (test 2.72 See_Comment [Automat ed message] code = 370) The system [employer] generated this result transmitted ref erence range: <=5.90. The reference range was not used to int erpret this result as normal/abnormal . RECOMMENDED COUMADIN/WARFARIN INR THERAPY RANGESSTANDARD DOSE: 2.0 - 3.0 Includes: PROPHYLAXIS for venous thrombosis, systemic embolization; TREATMENT for venous thrombosis and/or pulmonary embolus.HIGH RISK: Target INR is 2.5-3.5 for patients with mechanical heart valves.LACTIC ACID, [id number] 17:02:49 Test Item Value Reference Range Interpretation Comments LACTATE BLOOD ARTERIAL (2) 0.7 mmol/L 0.5-2.0 (BEAKER) (test code = 2874) Wheat Washer ID - EMPLATELET [id number] 16:51:06 Test Item Value Reference Range Interpretation Comments PLATELET COUNT (BEAKER) (test 122 K/CU MM 150-450 L code = 756) Wheat Washer ID - 6000HGB/HCT (H&H) - STAT [id number] 16:38:49 Test Item Value Reference Range Interpretation Comments HEMOGLOBIN (BEAKER) (test code = 7.8 GM/DL 12.0-15.0 L 410) HEMATOCRIT (BEAKER) (test code = 23.0 % 36.0-45.0 L 411) BLOOD GAS, [id number] 16:38:43 Test Item Value Reference Range Interpretation Comments PH ARTERIAL (BEAKER) (test code = 7.44 7.35-7.45 383) PCO2 ARTERIAL (BEAKER) (test code 39 mm Hg 35-45 = 384) PO2 ARTERIAL (BEAKER) (test code = 281 mm Hg 80-90 H 385) O2 SATURATION ARTERIAL (BEAKER) 99.7 % 96.0-97.0 H (test code = 386) HCO3 ARTERIAL (BEAKER) (test code 27 mmol/L 21-29 = 388) BASE EXCESS ARTERIAL (BEAKER) 1.8 mmol/L -2.0-3.0 (test code = 387) PATIENT TEMPERATURE (BEAKER) (test 34.9 code = 1818) FIO2 (BEAKER) (test code = 1819) 80.0 POTASSIUM-STAT [id number] 16:38:26 Test Item Value Reference Range Interpretation Comments POTASSIUM (BEAKER) (test code = 5.3 meq/L 3.6-5.5 379) GLUCOSE-STAT [id number] 16:38:25 Test Item Value Reference Range Interpretation Comments GLUCOSE RANDOM (BEAKER) (test code 181 mg/dL 70-110 H = 652) SODIUM NA-STAT [id number] 16:38:25 Test Item Value Reference Range Interpretation Comments SODIUM (BEAKER) (test code = 381) 137 meq/L 136-145 POTASSIUM-STAT [id number] 16:09:45 Test Item Value Reference Range Interpretation Comments POTASSIUM (BEAKER) (test code = 6.1 meq/L 3.6-5.5 HH 379) SODIUM NA-STAT [id number] 16:03:18 Test Item Value Reference Range Interpretation Comments SODIUM (BEAKER) (test code = 381) 134 meq/L 136-145 L HGB/HCT (H&H) - STAT [id number] 16:03:17 Test Item Value Reference Range Interpretation Comments HEMOGLOBIN (BEAKER) (test code = 8.3 GM/DL 12.0-15.0 L 410) HEMATOCRIT (BEAKER) (test code = 24.0 % 36.0-45.0 L 411) BLOOD GAS, [id number] 16:03:11 Test Item Value Reference Range Interpretation Comments PH ARTERIAL (BEAKER) (test code = 7.43 7.35-7.45 383) PCO2 ARTERIAL (BEAKER) (test code 38 mm Hg 35-45 = 384) PO2 ARTERIAL (BEAKER) (test code = 347 mm Hg 80-90 H 385) O2 SATURATION ARTERIAL (BEAKER) 99.8 % 96.0-97.0 H (test code = 386) HCO3 ARTERIAL (BEAKER) (test code 25 mmol/L 21-29 = 388) BASE EXCESS ARTERIAL (BEAKER) 0.1 mmol/L -2.0-3.0 (test code = 387) PATIENT TEMPERATURE (BEAKER) (test 33.9 code = 1818) FIO2 (BEAKER) (test code = 1819) 80.0 GLUCOSE-STAT [id number] 16:02:59 Test Item Value Reference Range Interpretation Comments GLUCOSE RANDOM (BEAKER) (test code 210 mg/dL 70-110 H = 652) LACTIC ACID, [id number] 15:51:13 Test Item Value Reference Range Interpretation Comments LACTATE BLOOD ARTERIAL (2) 1.2 mmol/L 0.5-2.0 (BEAKER) (test code = 2874) Wheat Washer ID - EMSODIUM NA-STAT [id number] 15:35:22 Test Item Value Reference Range Interpretation Comments SODIUM (BEAKER) (test code = 381) 132 meq/L 136-145 L HGB/HCT (H&H) - STAT [id number] 15:35:17 Test Item Value Reference Range Interpretation Comments HEMOGLOBIN (BEAKER) (test code = 8.9 GM/DL 12.0-15.0 L 410) HEMATOCRIT (BEAKER) (test code = 26.0 % 36.0-45.0 L 411) BLOOD GAS, [id number] 15:35:11 Test Item Value Reference Range Interpretation Comments PH ARTERIAL (BEAKER) (test code = 7.34 7.35-7.45 L 383) PCO2 ARTERIAL (BEAKER) (test code 42 mm Hg 35-45 = 384) PO2 ARTERIAL (BEAKER) (test code 339 mm Hg 80-90 H = 385) O2 SATURATION ARTERIAL (BEAKER) 99.7 % 96.0-97.0 H (test code = 386) HCO3 ARTERIAL (BEAKER) (test code 23 mmol/L 21-29 = 388) BASE EXCESS ARTERIAL (BEAKER) -3.5 mmol/L -2.0-3.0 L (test code = 387) PATIENT TEMPERATURE (BEAKER) 33.9 (test code = 1818) FIO2 (BEAKER) (test code = 1819) 80.0 POTASSIUM-STAT [id number] 15:34:54 Test Item Value Reference Range Interpretation Comments POTASSIUM (BEAKER) (test code = 5.0 meq/L 3.6-5.5 379) GLUCOSE-STAT [id number] 15:34:49 Test Item Value Reference Range Interpretation Comments GLUCOSE RANDOM (BEAKER) (test code 207 mg/dL 70-110 H = 652) BLOOD GAS, [id number] 12:11:33 Test Item Value Reference Range Interpretation Comments PH ARTERIAL (BEAKER) (test code = 7.49 7.35-7.45 H 383) PCO2 ARTERIAL (BEAKER) (test code 35 mm Hg 35-45 = 384) PO2 ARTERIAL (BEAKER) (test code = 560 mm Hg 80-90 H 385) O2 SATURATION ARTERIAL (BEAKER) 99.9 % 96.0-97.0 H (test code = 386) HCO3 ARTERIAL (BEAKER) (test code 27 mmol/L 21-29 = 388) BASE EXCESS ARTERIAL (BEAKER) 2.8 mmol/L -2.0-3.0 (test code = 387) PATIENT TEMPERATURE (BEAKER) (test 35.0 code = 1818) FIO2 (BEAKER) (test code = 1819) 100.0 HGB/HCT (H&H) - STAT [id number] 12:11:33 Test Item Value Reference Range Interpretation Comments HEMOGLOBIN (BEAKER) (test code = 8.1 GM/DL 12.0-15.0 L 410) HEMATOCRIT (BEAKER) (test code = 24.0 % 36.0-45.0 L 411) CALCIUM, [id number] 12:11:32 Test Item Value Reference Range Interpretation Comments CALCIUM IONIZED (BEAKER) (test 1.11 mmol/L 1.12-1.27 L code = 698) PH, BLOOD (BEAKER) (test code = 7.46 1810) SODIUM NA-STAT [id number] 12:10:29 Test Item Value Reference Range Interpretation Comments SODIUM (BEAKER) (test code = 381) 135 meq/L 136-145 L POTASSIUM-STAT [id number] 12:10:29 Test Item Value Reference Range Interpretation Comments POTASSIUM (BEAKER) (test code = 4.1 meq/L 3.6-5.5 379) GLUCOSE-STAT [id number] 12:10:24 Test Item Value Reference Range Interpretation Comments GLUCOSE RANDOM (BEAKER) (test code 164 mg/dL 70-110 H = 652) POCT-GLUCOSE [id number] 08:12:49 Test Item Value Reference Range Interpretation Comments POC-GLUCOSE METER 154 mg/dL 70-110 H : TESTED A T [facility] 6720 (BEAKER) (test code = [place], 1538) [address]: Wheat Washer/Techni patricia ID = [id number] for Biju Danielle BASIC METABOLIC [id number] 06:03:10 Test Item Value Reference Range Interpretation Comments SODIUM (BEAKER) 138 meq/L 136-145 (test code = 381) POTASSIUM 4.1 meq/L 3.5-5.1 (BEAKER) (test code = 379) CHLORIDE (BEAKER) 101 meq/L 98-107 (test code = 382) CO2 (BEAKER) 21 meq/L 22-29 L (test code = 355) BLOOD UREA 23 mg/dL 7-21 H NITROGEN (BEAKER) (test code = 354) CREATININE 3.74 mg/dL 0.57-1.25 H (BEAKER) (test code = 358) GLUCOSE RANDOM 134 mg/dL 70-105 H (BEAKER) (test code = 652) CALCIUM (BEAKER) 9.3 mg/dL 8.4-10.2 (test code = 697) EGFR (BEAKER) 13 Interpretatio n of eGFR (test code = mL/min/1.73 values Stage De scription 1092) sq m Result G1 Keiry l or high >=90 G2 Mildly decreased 60-89 G3a Mildl y to moderately 45-5 9 G3b Moderately to s everely 30-44 G4 Severl y decreased 15-29 G5 Kidney failure <15Reported eGF R is based on the CKD-EPI 2020 equation that d oes not use a race coefficientEsti mated GFR is not as accur ate as Creatinine Birdie lillian in predicting glom erular filtration rate . Estimated GFR is not appl icable for dialysis patien ts Wheat Washer ID - [id number] 05:44:32 Test Item Value Reference Range Interpretation Comments PHOSPHORUS (BEAKER) (test code = 4.4 mg/dL 2.3-4.7 604) Wheat Washer ID - [id number] 05:44:31 Test Item Value Reference Range Interpretation Comments MAGNESIUM (BEAKER) (test code = 1.9 mg/dL 1.6-2.6 627) Wheat Washer ID - ADMINCBC (HEMOGRAM ONLY)2023-03-15 05:35:13 Test Item Value Reference Range Interpretation Comments WHITE BLOOD CELL COUNT 8.5 K/ L 3.5-10.5 (BEAKER) (test code = 775) RED BLOOD CELL COUNT 2.83 M/ L 3.93-5.22 L (BEAKER) (test code = 761) HEMOGLOBIN (BEAKER) 8.0 GM/DL 11.2-15.7 L (test code = 410) HEMATOCRIT (BEAKER) 27.9 % 34.1-44.9 L (test code = 411) MEAN CORPUSCULAR 99 fL 79-95 H Discordant MCV VOLUME (BEAKER) (test result s compared to code = 753) previous result s; clinical correl ation required. MEAN CORPUSCULAR 28.3 pg 25.6-32.2 HEMOGLOBIN (BEAKER) (test code = 751) MEAN CORPUSCULAR 28.7 GM/DL 32.2-35.5 L HEMOGLOBIN CONC (BEAKER) (test code = 752) RED CELL DISTRIBUTION 18.2 % 11.7-14.4 H WIDTH (BEAKER) (test code = 412) PLATELET COUNT 183 K/CU MM 150-450 (BEAKER) (test code = 756) MEAN PLATELET VOLUME 10.1 fL 9.4-12.3 (BEAKER) (test code = 754) NUCLEATED RED BLOOD 0 /100 WBC 0-0 CELLS (BEAKER) (test code = 413) POCT-GLUCOSE [id number] 22:03:17 Test Item Value Reference Range Interpretation Comments POC-GLUCOSE METER 161 mg/dL 70-110 H : TESTED A T [facility] 6720 (BEAKER) (test code = [facility], 1538) [address]: Wheat Washer/Techni patricia ID = [id number] for PASCALE SULLIVANEMICHAEL POCT-GLUCOSE [id number] 17:56:09 Test Item Value Reference Range Interpretation Comments POC-GLUCOSE METER 237 mg/dL 70-110 H : TESTED A T [facility] 6720 (BEAKER) (test code = [facility], 1538) 473[address]: Wheat Washer/Techni patricia ID = [id number] for Hannah cobb (contract)Juan C daniellemartine BASIC METABOLIC [id number] 05:53:39 Test Item Value Reference Range Interpretation Comments SODIUM (BEAKER) 138 meq/L 136-145 (test code = 381) POTASSIUM 4.1 meq/L 3.5-5.1 (BEAKER) (test code = 379) CHLORIDE (BEAKER) 100 meq/L 98-107 (test code = 382) CO2 (BEAKER) 25 meq/L 22-29 (test code = 355) BLOOD UREA 35 mg/dL 7-21 H NITROGEN (BEAKER) (test code = 354) CREATININE 5.16 mg/dL 0.57-1.25 H (BEAKER) (test code = 358) GLUCOSE RANDOM 149 mg/dL 70-105 H (BEAKER) (test code = 652) CALCIUM (BEAKER) 9.1 mg/dL 8.4-10.2 (test code = 697) EGFR (BEAKER) 9 Interpretatio n of eGFR (test code = mL/min/1.73 values Stage De scription 1092) sq m Result G1 Keiry l or high >=90 G2 Mildly decreased 60-89 G3a Mildl y to moderately 45-5 9 G3b Moderately to s everely 30-44 G4 Severl y decreased 15-29 G5 Kidney failure <15Reported eGF R is based on the CKD-EPI 2020 equation that d oes not use a race coefficientEsti mated GFR is not as accur ate as Creatinine Birdie lillian in predicting glom erular filtration rate . Estimated GFR is not appl icable for dialysis patien ts Wheat Washer ID - [id number] 05:47:10 Test Item Value Reference Range Interpretation Comments PHOSPHORUS (BEAKER) (test code = 5.4 mg/dL 2.3-4.7 H 604) Wheat Washer ID - [id number] 05:47:09 Test Item Value Reference Range Interpretation Comments MAGNESIUM (BEAKER) (test code = 2.0 mg/dL 1.6-2.6 627) Wheat Washer ID - ADMINCBC (HEMOGRAM ONLY)2023-03-14 05:21:44 Test Item Value Reference Range Interpretation Comments WHITE BLOOD CELL COUNT (BEAKER) 8.4 K/ L 3.5-10.5 (test code = 775) RED BLOOD CELL COUNT (BEAKER) 2.87 M/ L 3.93-5.22 L (test code = 761) HEMOGLOBIN (BEAKER) (test code = 8.1 GM/DL 11.2-15.7 L 410) HEMATOCRIT (BEAKER) (test code = 27.3 % 34.1-44.9 L 411) MEAN CORPUSCULAR VOLUME (BEAKER) 95 fL 79-95 (test code = 753) MEAN CORPUSCULAR HEMOGLOBIN 28.2 pg 25.6-32.2 (BEAKER) (test code = 751) MEAN CORPUSCULAR HEMOGLOBIN CONC 29.7 GM/DL 32.2-35.5 L (BEAKER) (test code = 752) RED CELL DISTRIBUTION WIDTH 18.3 % 11.7-14.4 H (BEAKER) (test code = 412) PLATELET COUNT (BEAKER) (test 189 K/CU MM 150-450 code = 756) MEAN PLATELET VOLUME (BEAKER) 8.9 fL 9.4-12.3 L (test code = 754) NUCLEATED RED BLOOD CELLS 0 /100 WBC 0-0 (BEAKER) (test code = 413) CT CHEST WITH IV [id number] 00:04:10 [facility] : 1955 Sex: FEXAM:CT Chest WITH intravenous contrastINDICATION: Unlisted Reason for Exampre op cardiac surgeryCOMPARISON: CXR 03/06/2023TECHNIQUE:The thorax was scanned utilizing a multidetector helical scanner fromthe lung apex through the level of the adrenal glands afteradministration of IV contrast. Coronal and sagittal reformations wereobtained. Routine protocol was performed. Dose modulation, iterative reconstruction, and/or weight basedadjustment of the mA/kV was utilized to reduce the radiation dose to aslow as reasonably achievable. FINDINGS:LINES/ TUBES: Right internal jugular central venous catheter tipterminates in the SVC.VESSELS:Conventional anatomy of the great vessels. The right brachiocephalictrunk contains multiple focal atherosclerotic plaque but appears grosslypatent. There is moderate atherosclerotic plaque at the ostium of theleft common carotid artery. The bilateral subclavian arteries containmultifocal atherosclerotic plaque but appear patent. The vertebralarteries appear grossly patent.Limited evaluation of the aortic sinus and sinotubular junction due tocardiac motion. The ascending thoracic aorta measures 3.6 cm the levelof the pulmonary arteries. The aortic arch measures up to 2.4 cmindiameter. The descending thoracic aorta measures 2.2 cm diameter.Moderate atherosclerotic disease throughout the visualized thoracicaorta.The bilateral internal mammary arteries are grossly patent.The main pulmonary artery is dilated measuring up to 4.0 cm in diameter.LUNGS AND AIRWAYS: Diffuse bilateral groundglass opacities. No focalconsolidation. Central airways are patent. There is mild lower lo bepredominant bronchiectasis.PLEURA: Small bilateral pleural effusions. No pneumothorax.HEART AND MEDIASTINUM: The left thyroid gland and isthmus appear withinnormal limits. Multiple mildly enlarged mediastinal lymph nodes areidentified measuring up to 15 mm in maximal diameter (axial series image68). The heart is mildly enlarged. No pericardial effusion. Diffuseatherosclerotic disease of the right coronary artery, LAD, and leftcircumflex arteries.UPPER ABDOMEN: No acute upper abdominal findings.BONES: No acute osseous injury. No suspicious lytic or blastic lesions.SOFT TISSUES: Unremarkable.IMPRESSION:1. Cardiomegaly with pulmonary edema and small bilateral pleuraleffusions.2. Severe three-vesselcoronary atherosclerotic disease.3. No aneurysmal dilatation of the thoracic aorta.4. Dilated main pulmonary artery suggestive of pulmonary arterialhypertension.5. Nonspecific mildly enlarged mediastinal lymph nodes, which arelikely reactive. Recommend continued attention on follow-up exams.Electronically Signed By: Tomas Hamilton03/14/2023 00:07 CDTWorkstation Name: [id number] 22:45:05 Test Item Value Reference Range Interpretation Comments POC-GLUCOSE METER 145 mg/dL 70-110 H : TESTED A T [facility] 6720 ([place]) (test code = [facility], [facility]) [address]: Wheat Washer/Techni patricia ID = [id number] for Colleen steventiffany Aracelis POCT-GLUCOSE [id number] 16:29:49 Test Item Value Reference Range Interpretation Comments POC-GLUCOSE METER 122 mg/dL 70-110 H : TESTED A T [facility] 6720 ([place]) (test code = [facility], 1538) [address]: Wheat Washer/Techni patricia ID = [id number] for Fa ircloth, Lucila POCT-GLUCOSE [id number] 11:46:15 Test Item Value Reference Range Interpretation Comments POC-GLUCOSE METER 168 mg/dL 70-110 H : TESTED A T [facility] 6720 ([place]) (test code = [facility], 1538) [address]58[address]: Wheat Washer/Techni patricia ID = [id number] for Fa ircloth, Lucila POCT-GLUCOSE [id number] 07:43:21 Test Item Value Reference Range Interpretation Comments POC-GLUCOSE METER 173 mg/dL 70-110 H : TESTED A T [facility] 6720 (BEAKER) (test code = [place], 1538) 24670: Wheat Washer/Techni patricia ID = [id number] for Lucila Hutchins BASIC METABOLIC [id number] 06:40:10 Test Item Value Reference Range Interpretation Comments SODIUM (BEAKER) 139 meq/L 136-145 (test code = 381) POTASSIUM 3.9 meq/L 3.5-5.1 (BEAKER) (test code = 379) CHLORIDE (BEAKER) 101 meq/L 98-107 (test code = 382) CO2 (BEAKER) 24 meq/L 22-29 (test code = 355) BLOOD UREA 23 mg/dL 7-21 H NITROGEN (BEAKER) (test code = 354) CREATININE 3.88 mg/dL 0.57-1.25 H (BEAKER) (test code = 358) GLUCOSE RANDOM 194 mg/dL 70-105 H (BEAKER) (test code = 652) CALCIUM (BEAKER) 9.1 mg/dL 8.4-10.2 (test code = 697) EGFR (BEAKER) 12 Interpretatio n of eGFR (test code = mL/min/1.73 values Stage De scription 1092) sq m Result G1 Keiry l or high >=90 G2 Mildly decreased 60-89 G3a Mildl y to moderately 45-5 9 G3b Moderately to s everely 30-44 G4 Severl y decreased 15-29 G5 Kidney failure <15Reported eGF R is based on the CKD-EPI 2020 equation that d oes not use a race coefficientEsti mated GFR is not as accur ate as Creatinine Birdie lillian in predicting glom erular filtration rate . Estimated GFR is not appl icable for dialysis patien ts Wheat Washer ID - [id number] 06:36:46 Test Item Value Reference Range Interpretation Comments PHOSPHORUS (BEAKER) (test code = 4.7 mg/dL 2.3-4.7 604) Wheat Washer ID - [id number] 06:36:45 Test Item Value Reference Range Interpretation Comments MAGNESIUM (BEAKER) (test code = 1.9 mg/dL 1.6-2.6 627) Wheat Washer ID - ADMINCBC (HEMOGRAM ONLY)2023-03-13 04:32:19 Test Item Value Reference Range Interpretation Comments WHITE BLOOD CELL COUNT (BEAKER) 9.1 K/ L 3.5-10.5 (test code = 775) RED BLOOD CELL COUNT (BEAKER) 3.00 M/ L 3.93-5.22 L (test code = 761) HEMOGLOBIN (BEAKER) (test code = 8.5 GM/DL 11.2-15.7 L 410) HEMATOCRIT (BEAKER) (test code = 28.5 % 34.1-44.9 L 411) MEAN CORPUSCULAR VOLUME (BEAKER) 95 fL 79-95 (test code = 753) MEAN CORPUSCULAR HEMOGLOBIN 28.3 pg 25.6-32.2 (BEAKER) (test code = 751) MEAN CORPUSCULAR HEMOGLOBIN CONC 29.8 GM/DL 32.2-35.5 L (BEAKER) (test code = 752) RED CELL DISTRIBUTION WIDTH 17.9 % 11.7-14.4 H (BEAKER) (test code = 412) PLATELET COUNT (BEAKER) (test 212 K/CU MM 150-450 code = 756) MEAN PLATELET VOLUME (BEAKER) 9.1 fL 9.4-12.3 L (test code = 754) NUCLEATED RED BLOOD CELLS 0 /100 WBC 0-0 (BEAKER) (test code = 413) POCT-GLUCOSE [id number] 20:48:05 Test Item Value Reference Range Interpretation Comments POC-GLUCOSE METER 243 mg/dL 70-110 H : TESTED A T [facility] 6720 (BEAKER) (test code = [facility], 153) 20723: Wheat Washer/Techni patricia ID = [id number] for Thierry Mccormick POCT-GLUCOSE [id number] 11:12:18 Test Item Value Reference Range Interpretation Comments POC-GLUCOSE METER 119 mg/dL 70-110 H : TESTED A T [facility] 6720 (BEAKER) (test code = [facility], 153) 96577: Wheat Washer/Techni patricia ID = [id number] for Amy Rivera POCT-GLUCOSE [id number] 08:10:31 Test Item Value Reference Range Interpretation Comments POC-GLUCOSE METER 147 mg/dL 70-110 H : [facility] (BEAKER) (test code = [place], 1538) [address]76[address]: Wheat Washer/Techni patricia ID = [id number] for PRESLEY RICARDO BASIC METABOLIC [id number] 04:54:03 Test Item Value Reference Range Interpretation Comments SODIUM (BEAKER) 137 meq/L 136-145 (test code = 381) POTASSIUM 3.9 meq/L 3.5-5.1 (BEAKER) (test code = 379) CHLORIDE (BEAKER) 99 meq/L 98-107 (test code = 382) CO2 (BEAKER) 22 meq/L 22-29 (test code = 355) BLOOD UREA 49 mg/dL 7-21 H NITROGEN (BEAKER) (test code = 354) CREATININE 5.63 mg/dL 0.57-1.25 H (BEAKER) (test code = 358) GLUCOSE RANDOM 144 mg/dL 70-105 H (BEAKER) (test code = 652) CALCIUM (BEAKER) 8.7 mg/dL 8.4-10.2 (test code = 697) EGFR (BEAKER) 8 Interpretatio n of eGFR (test code = mL/min/1.73 values Stage De scription 1092) sq m Result G1 Keiry l or high >=90 G2 Mildly decreased 60-89 G3a Mildl y to moderately 45-5 9 G3b Moderately to s everely 30-44 G4 Sever ly decreased 15-29 G5 Kidney failure <15Repo rted eGFR is based on the CKD-EPI 2020 equation t hat does not use a race coefficientEsti mated GFR is not as accur ate as Creatinine Birdie snyder in predicting glom erular filtration rate . Estimated GFR is not appl icable for dialysis patien ts Wheat Washer ID - [id number] 04:49:59 Test Item Value Reference Range Interpretation Comments MAGNESIUM (BEAKER) (test code = 2.0 mg/dL 1.6-2.6 627) Wheat Washer ID - [id number] 04:49:59 Test Item Value Reference Range Interpretation Comments PHOSPHORUS (BEAKER) (test code = 6.4 mg/dL 2.3-4.7 H 604) Wheat Washer ID - ADMINCBC (HEMOGRAM ONLY)2023-03-12 04:05:47 Test Item Value Reference Range Interpretation Comments WHITE BLOOD CELL COUNT (BEAKER) 8.9 K/ L 3.5-10.5 (test code = 775) RED BLOOD CELL COUNT (BEAKER) 2.72 M/ L 3.93-5.22 L (test code = 761) HEMOGLOBIN (BEAKER) (test code = 7.6 GM/DL 11.2-15.7 L 410) HEMATOCRIT (BEAKER) (test code = 25.6 % 34.1-44.9 L 411) MEAN CORPUSCULAR VOLUME (BEAKER) 94 fL 79-95 (test code = 753) MEAN CORPUSCULAR HEMOGLOBIN 27.9 pg 25.6-32.2 (BEAKER) (test code = 751) MEAN CORPUSCULAR HEMOGLOBIN CONC 29.7 GM/DL 32.2-35.5 L (BEAKER) (test code = 752) RED CELL DISTRIBUTION WIDTH 17.6 % 11.7-14.4 H (BEAKER) (test code = 412) PLATELET COUNT (BEAKER) (test 177 K/CU MM 150-450 code = 756) MEAN PLATELET VOLUME (BEAKER) 8.8 fL 9.4-12.3 L (test code = 754) NUCLEATED RED BLOOD CELLS 0 /100 WBC 0-0 (BEAKER) (test code = 413) HIGH SENSITIVITY TROPONIN [id number] 22:12:43 Test Item Value Reference Range Interpretation Comments HIGH SENSITIVITY 61 pg/ml See_Comment H [Automated message] TROPONIN I (test code = The system which [id number]) generated this result transmitted ref erence range: <=17. Th e reference range was not used to int erpret this result as normal/abnormal . Wheat Washer ID - ADMINThe SENIOR SALES OPERATIONS ANALYST STAT High Sensitivity Troponin-I results should be used in conjunction with other diagnostic information such as ECG, clinical observations and information, and patientsymptoms to aid in the diagnosis of [place]. XR ABDOMEN/KUB 1 VIEW [id number] 21:43:47 [facility] 1955 Sex: FTECHNIQUE: Supine views of the abdomen.INDICATION: vomiting.COMPARISON: None.FINDINGS/IMPRESSION:Bowel gaspattern is nonspecific with paucity of small bowel gas. Smallvolume of colonic fecal matter present.Status post cholecystectomy. Noacute osseous abnormality. Status post L4-L5 transpedicular screw androd fusion. Moderate degenerative disc disease at L2-L3.Electronically Signed By: Shelton Donaldson03/11/2023 21:45 CDTWorkstation Name: [id number] GLUCOSE [id number] 20:50:48 Test Item Value Reference Range Interpretation Comments POC-GLUCOSE METER 172 mg/dL 70-110 H : TESTED A T [facility] 6720 (BEAKER) (test code = [facility], [facility]) [address]: Wheat Washer/Techni patricia ID = [id number] for Thierry Mccormick POCT-GLUCOSE [id number] 16:50:23 Test Item Value Reference Range Interpretation Comments POC-GLUCOSE METER 153 mg/dL 70-110 H : TESTED A T [facility] 6720 (BEAKER) (test code = [facility], [facility]) 713[address]: Wheat Washer/Techni patricia ID = [id number] for Kingsley shea POCT-GLUCOSE [id number] 12:32:46 Test Item Value Reference Range Interpretation Comments POC-GLUCOSE METER 233 mg/dL 70-110 H : TESTED A T [facility] 6720 (BEAKER) (test code = [facility], 1538) 30144: Wheat Washer/Techni patricia ID = [id number] for Kingsley Fuller POCT-GLUCOSE [id number] 08:32:00 Test Item Value Reference Range Interpretation Comments POC-GLUCOSE METER 148 mg/dL 70-110 H : TESTED A T [facility] 6720 (BEAKER) (test code = [facility], 1538) 48504: Wheat Washer/Techni patricia ID = [id number] for Kingsley Fuller BASIC METABOLIC [id number] 05:03:14 Test Item Value Reference Range Interpretation Comments SODIUM (BEAKER) 141 meq/L 136-145 (test code = 381) POTASSIUM 3.7 meq/L 3.5-5.1 (BEAKER) (test code = 379) CHLORIDE (BEAKER) 100 meq/L 98-107 (test code = 382) CO2 (BEAKER) 26 meq/L 22-29 (test code = 355) BLOOD UREA 37 mg/dL 7-21 H NITROGEN (BEAKER) (test code = 354) CREATININE 4.81 mg/dL 0.57-1.25 H (BEAKER) (test code = 358) GLUCOSE RANDOM 167 mg/dL 70-105 H (BEAKER) (test code = 652) CALCIUM (BEAKER) 9.3 mg/dL 8.4-10.2 (test code = 697) EGFR (BEAKER) 9 Interpretatio n of eGFR (test code = mL/min/1.73 values Stage De scription 1092) sq m Result G1 Keiry l or high >=90 G2 Mildly decreased 60-89 G3a Mildl y to moderately 45-5 9 G3b Moderately to s everely 30-44 G4 Severl y decreased 15-29 G5 Kidney failure <15Reported eGF R is based on the CKD-EPI 2020 equation that d oes not use a race coefficientEsti mated GFR is not as accur ate as Creatinine Birdie lillian in predicting glom erular filtration rate . Estimated GFR is not appl icable for dialysis patien ts Wheat Washer ID - JAKE [id number] 05:00:14 Test Item Value Reference Range Interpretation Comments MAGNESIUM (BEAKER) (test code = 2.1 mg/dL 1.6-2.6 627) Wheat Washer ID - JAKE [id number] 05:00:14 Test Item Value Reference Range Interpretation Comments PHOSPHORUS (BEAKER) (test code = 5.6 mg/dL 2.3-4.7 H 604) Wheat Washer ID Gali JOSEPH WCBC (HEMOGRAM ONLY)2023-03-11 04:20:00 Test Item Value Reference Range Interpretation Comments WHITE BLOOD CELL COUNT (BEAKER) 9.6 K/ L 3.5-10.5 (test code = 775) RED BLOOD CELL COUNT (BEAKER) 2.99 M/ L 3.93-5.22 L (test code = 761) HEMOGLOBIN (BEAKER) (test code = 8.3 GM/DL 11.2-15.7 L 410) HEMATOCRIT (BEAKER) (test code = 27.8 % 34.1-44.9 L 411) MEAN CORPUSCULAR VOLUME (BEAKER) 93 fL 79-95 (test code = 753) MEAN CORPUSCULAR HEMOGLOBIN 27.8 pg 25.6-32.2 (BEAKER) (test code = 751) MEAN CORPUSCULAR HEMOGLOBIN CONC 29.9 GM/DL 32.2-35.5 L (BEAKER) (test code = 752) RED CELL DISTRIBUTION WIDTH 17.7 % 11.7-14.4 H (BEAKER) (test code = 412) PLATELET COUNT (BEAKER) (test 189 K/CU MM 150-450 code = 756) MEAN PLATELET VOLUME (BEAKER) 8.8 fL 9.4-12.3 L (test code = 754) NUCLEATED RED BLOOD CELLS 0 /100 WBC 0-0 (BEAKER) (test code = 413) BLOOD [id number] 03:00:43 Test Item Value Reference Range Interpretation Comments CULTURE (BEAKER) (test No growth in 5 days code = 1095) BLOOD [id number] 03:00:42 Test Item Value Reference Range Interpretation Comments CULTURE (BEAKER) (test No growth in 5 days code = 1095) POCT-GLUCOSE [id number] 22:16:40 Test Item Value Reference Range Interpretation Comments POC-GLUCOSE METER 168 mg/dL 70-110 H : TESTED A T [facility] 6720 ([place]AKER) (test code = [facility], 1538) 26[address]: Wheat Washer/Techni patricia ID = [id number] for Du nadeem, Violet POCT-GLUCOSE [id number] 16:24:20 Test Item Value Reference Range Interpretation Comments POC-GLUCOSE METER 114 mg/dL 70-110 H : TESTED A T [facility] 6720 ([place]AK[place]) (test code = [facility], 1538) 83369: Wheat Washer/Techni patricia ID = [id number] for JEROME DUARTE POCT-GLUCOSE [id number] 12:20:28 Test Item Value Reference Range Interpretation Comments POC-GLUCOSE METER 153 mg/dL 70-110 H : TESTED A T [facility] 6720 (BEAKER) (test code = [facility], 1538) 75025: Wheat Washer/Techni patricia ID = [id number] for JEROME DUARTE POCT-GLUCOSE [id number] 09:13:42 Test Item Value Reference Range Interpretation Comments POC-GLUCOSE METER 130 mg/dL 70-110 H : TESTED A T [facility] 6720 (BEAKER) (test code = SARMAD Barreto [facility], 1538) [address]: Wheat Washer/Techni patricia ID = [id number] for JEROME DUARTE BASIC METABOLIC [id number] 06:16:34 Test Item Value Reference Range Interpretation Comments SODIUM (BEAKER) 142 meq/L 136-145 (test code = 381) POTASSIUM 3.6 meq/L 3.5-5.1 (BEAKER) (test code = 379) CHLORIDE (BEAKER) 102 meq/L 98-107 (test code = 382) CO2 (BEAKER) 25 meq/L 22-29 (test code = 355) BLOOD UREA 26 mg/dL 7-21 H NITROGEN (BEAKER) (test code = 354) CREATININE 3.46 mg/dL 0.57-1.25 H (BEAKER) (test code = 358) GLUCOSE RANDOM 131 mg/dL 70-105 H (BEAKER) (test code = 652) CALCIUM (BEAKER) 9.6 mg/dL 8.4-10.2 (test code = 697) EGFR (BEAKER) 14 Interpretatio n of eGFR (test code = mL/min/1.73 values Stage De scription 1092) sq m Result G1 Keiry l or high >=90 G2 Mildly decreased 60-89 G3a Mildl y to moderately 45-5 9 G3b Moderately to s everely 30-44 G4 Severl y decreased 15-29 G5 Kidney failure <15Reported eGF R is based on the CKD-EPI 2020 equation that d oes not use a race coefficientEsti mated GFR is not as accur ate as Creatinine Birdie lillian in predicting glom erular filtration rate . Estimated GFR is not appl icable for dialysis patien ts Wheat Washer ID - [id number] 06:08:56 Test Item Value Reference Range Interpretation Comments MAGNESIUM (BEAKER) (test code = 2.0 mg/dL 1.6-2.6 627) Wheat Washer ID - [id number] 06:08:56 Test Item Value Reference Range Interpretation Comments PHOSPHORUS (BEAKER) (test code = 4.2 mg/dL 2.3-4.7 604) Wheat Washer ID - ADMINCBC (HEMOGRAM ONLY)2023-03-10 05:44:11 Test Item Value Reference Range Interpretation Comments WHITE BLOOD CELL COUNT (BEAKER) 11.1 K/ L 3.5-10.5 H (test code = 775) RED BLOOD CELL COUNT (BEAKER) 3.02 M/ L 3.93-5.22 L (test code = 761) HEMOGLOBIN (BEAKER) (test code = 8.5 GM/DL 11.2-15.7 L 410) HEMATOCRIT (BEAKER) (test code = 27.8 % 34.1-44.9 L 411) MEAN CORPUSCULAR VOLUME (BEAKER) 92 fL 79-95 (test code = 753) MEAN CORPUSCULAR HEMOGLOBIN 28.1 pg 25.6-32.2 (BEAKER) (test code = 751) MEAN CORPUSCULAR HEMOGLOBIN CONC 30.6 GM/DL 32.2-35.5 L (BEAKER) (test code = 752) RED CELL DISTRIBUTION WIDTH 17.7 % 11.7-14.4 H (BEAKER) (test code = 412) PLATELET COUNT (BEAKER) (test 203 K/CU MM 150-450 code = 756) MEAN PLATELET VOLUME (BEAKER) 9.2 fL 9.4-12.3 L (test code = 754) NUCLEATED RED BLOOD CELLS 0 /100 WBC 0-0 (BEAKER) (test code = 413) POCT-GLUCOSE [id number] 22:34:22 Test Item Value Reference Range Interpretation Comments POC-GLUCOSE METER 140 mg/dL 70-110 H : TESTED A T [facility] 67[facility] (BEAKER) (test code = [place], 1538) [address]: Wheat Washer/Techni patircia ID = [id number] for MICHAEL PENALOZA POCT-GLUCOSE [id number] 17:16:18 Test Item Value Reference Range Interpretation Comments POC-GLUCOSE METER 101 mg/dL 70-110 : TESTED A T [facility] 6720 (BEAKER) (test code = [facility], 1538) [address]: Wheat Washer/Techni patricia ID = [id number] for Ashley Valdovinos POCT-GLUCOSE [id number] 11:50:32 Test Item Value Reference Range Interpretation Comments POC-GLUCOSE METER 155 mg/dL 70-110 H : TESTED A T [facility] 6720 (BEAKER) (test code = [facility], 1538) [address]: Wheat Washer/Techni patricia ID = [id number] for Mar Santamaria POCT-GLUCOSE [id number] 08:37:48 Test Item Value Reference Range Interpretation Comments POC-GLUCOSE METER 172 mg/dL 70-110 H : TESTED A T [facility] 6720 (BEAKER) (test code = [facility], 1538) [address]: Wheat Washer/Techni patricia ID = [id number] for Mar Santamaria BASIC METABOLIC [id number] 04:30:36 Test Item Value Reference Range Interpretation Comments SODIUM (BEAKER) 140 meq/L 136-145 (test code = 381) POTASSIUM 3.9 meq/L 3.5-5.1 (BEAKER) (test code = 379) CHLORIDE (BEAKER) 101 meq/L 98-107 (test code = 382) CO2 (BEAKER) 23 meq/L 22-29 (test code = 355) BLOOD UREA 57 mg/dL 7-21 H NITROGEN (BEAKER) (test code = 354) CREATININE 5.75 mg/dL 0.57-1.25 H (BEAKER) (test code = 358) GLUCOSE RANDOM 148 mg/dL 70-105 H (BEAKER) (test code = 652) CALCIUM (BEAKER) 9.2 mg/dL 8.4-10.2 (test code = 697) EGFR (BEAKER) 8 Interpretatio n of eGFR (test code = mL/min/1.73 values Stage De scription 1092) sq m Result G1 Keiry l or high >=90 G2 Mildly decreased 60-89 G3a Mildl y to moderately 45-5 9 G3b Moderately to s everely 30-44 G4 Severl y decreased 15-29 G5 Kidney failure <15Reported eGF R is based on the CKD-EPI 2020 equation that d oes not use a race coefficientEsti mated GFR is not as accur ate as Creatinine Birdie lillian in predicting glom erular filtration rate . Estimated GFR is not appl icable for dialysis patien ts Wheat Washer ID - [id number] 04:29:33 Test Item Value Reference Range Interpretation Comments PHOSPHORUS (BEAKER) (test code = 6.8 mg/dL 2.3-4.7 H 604) Wheat Washer ID - [id number] 04:29:32 Test Item Value Reference Range Interpretation Comments MAGNESIUM (BEAKER) (test code = 2.1 mg/dL 1.6-2.6 627) Wheat Washer ID - ADMINPROTHROMBIN [id number] 04:07:04 Test Item Value Reference Range Interpretation Comments PROTIME (BEAKER) 16.6 seconds 11.9-14.2 H (test code = 759) INR (BEAKER) (test 1.38 See_Comment [Automat ed message] code = 370) The system 51wan generated this result transmitted ref erence range: <=5.90. The reference range was not used to int erpret this result as normal/abnormal . RECOMMENDED COUMADIN/WARFARIN INR THERAPY RANGESSTANDARD DOSE: 2.0 - 3.0 Includes: PROPHYLAXIS for venous thrombosis, systemic embolization; TREATMENT for venous thrombosis and/or pulmonary embolus.HIGH RISK: Target INR is 2.5-3.5 for patients with mechanical heart valves.CBC (HEMOGRAM ONLY)2023-03-09 04:02:46 Test Item Value Reference Range Interpretation Comments WHITE BLOOD CELL COUNT 9.8 K/ L 3.5-10.5 (BEAKER) (test code = 775) RED BLOOD CELL COUNT 2.52 M/ L 3.93-5.22 L (BEAKER) (test code = 761) HEMOGLOBIN (BEAKER) 7.2 GM/DL 11.2-15.7 L (test code = 410) HEMATOCRIT (BEAKER) 23.1 % 34.1-44.9 L (test code = 411) MEAN CORPUSCULAR 92 fL 79-95 Discordant results VOLUME (BEAKER) (test compar ed to code = 753) previous, clini jose correlation required. MEAN CORPUSCULAR 28.6 pg 25.6-32.2 HEMOGLOBIN (BEAKER) (test code = 751) MEAN CORPUSCULAR 31.2 GM/DL 32.2-35.5 L HEMOGLOBIN CONC (BEAKER) (test code = 752) RED CELL DISTRIBUTION 18.0 % 11.7-14.4 H WIDTH (BEAKER) (test code = 412) PLATELET COUNT 174 K/CU MM 150-450 (BEAKER) (test code = 756) MEAN PLATELET VOLUME 9.1 fL 9.4-12.3 L (BEAKER) (test code = 754) NUCLEATED RED BLOOD 0 /100 WBC 0-0 CELLS (BEAKER) (test code = 413) POCT-GLUCOSE [id number] 21:18:16 Test Item Value Reference Range Interpretation Comments POC-GLUCOSE METER 199 mg/dL 70-110 H : TESTED A T [facility] 6720 (BEAKER) (test code = [facility], [facility]) [address]: Wheat Washer/Techni patricia ID = [id number] for Thierry Mccormick POCT-GLUCOSE [id number] 17:42:45 Test Item Value Reference Range Interpretation Comments POC-GLUCOSE METER 186 mg/dL 70-110 H : TESTED A T [facility] 6720 (BEAKER) (test code = [facility], [facility]) 39[address]: Wheat Washer/Techni patricia ID = [id number] for Vernon guthrie, [place] POCT-GLUCOSE [id number] 11:43:40 Test Item Value Reference Range Interpretation Comments POC-GLUCOSE METER 127 mg/dL 70-110 H : TESTED A T [facility] 6720 (BEAKER) (test code = [facility], 153) [address]: Wheat Washer/Techni patricia ID = [id number] for Matchanickal, S justo POCT-GLUCOSE [id number] 09:02:04 Test Item Value Reference Range Interpretation Comments POC-GLUCOSE METER 111 mg/dL 70-110 H : TESTED A T [facility] 6720 (BEAKER) (test code = [facility], 153) [address]371: Wheat Washer/Techni patricia ID = [id number] for Kingsley Fuller BASIC METABOLIC [id number] 06:18:46 Test Item Value Reference Range Interpretation Comments SODIUM (BEAKER) 140 meq/L 136-145 (test code = 381) POTASSIUM 3.5 meq/L 3.5-5.1 (BEAKER) (test code = 379) CHLORIDE (BEAKER) 102 meq/L 98-107 (test code = 382) CO2 (BEAKER) 22 meq/L 22-29 (test code = 355) BLOOD UREA 46 mg/dL 7-21 H NITROGEN (BEAKER) (test code = 354) CREATININE 4.33 mg/dL 0.57-1.25 H (BEAKER) (test code = 358) GLUCOSE RANDOM 107 mg/dL 70-105 H (BEAKER) (test code = 652) CALCIUM (BEAKER) 8.9 mg/dL 8.4-10.2 (test code = 697) EGFR (BEAKER) 11 Interpretatio n of eGFR (test code = mL/min/1.73 values Stage De scription 1092) sq m Result G1 Keiry l or high >=90 G2 Mildly decreased 60-89 G3a Mildl y to moderately 45-5 9 G3b Moderately to s everely 30-44 G4 Severl y decreased 15-29 G5 Kidney failure <15Reported eGF R is based on the CKD-EPI 2020 equation that d oes not use a race coefficientEsti mated GFR is not as accur ate as Creatinine Birdie lillian in predicting glom erular filtration rate . Estimated GFR is not appl icable for dialysis patien ts Wheat Washer ID - ADMINHEPATIC FUNCTION [id number] 06:04:57 Test Item Value Reference Range Interpretation Comments TOTAL PROTEIN (BEAKER) (test code = 6.5 gm/dL 6.0-8.3 770) ALBUMIN (BEAKER) (test code = 1145) 3.1 g/dL 3.5-5.0 L BILIRUBIN TOTAL (BEAKER) (test code 0.6 mg/dL 0.2-1.2 = 377) BILIRUBIN DIRECT (BEAKER) (test 0.4 mg/dL 0.1-0.5 code = 706) ALKALINE PHOSPHATASE (BEAKER) (test 161 U/L 40-150 H code = 346) AST (SGOT) (BEAKER) (test code = 24 U/L 5-34 353) ALT (SGPT) (BEAKER) (test code = 25 U/L 6-55 347) Wheat Washer ID - [id number] 06:04:56 Test Item Value Reference Range Interpretation Comments MAGNESIUM (BEAKER) (test code = 2.0 mg/dL 1.6-2.6 627) Wheat Washer ID - [id number] 06:04:56 Test Item Value Reference Range Interpretation Comments PHOSPHORUS (BEAKER) (test code = 5.8 mg/dL 2.3-4.7 H 604) Wheat Washer ID - ADMINCBC (HEMOGRAM ONLY)2023-03-08 05:43:26 Test Item Value Reference Range Interpretation Comments WHITE BLOOD CELL COUNT (BEAKER) 10.7 K/ L 3.5-10.5 H (test code = 775) RED BLOOD CELL COUNT (BEAKER) 2.69 M/ L 3.93-5.22 L (test code = 761) HEMOGLOBIN (BEAKER) (test code = 7.7 GM/DL 11.2-15.7 L 410) HEMATOCRIT (BEAKER) (test code = 23.6 % 34.1-44.9 L 411) MEAN CORPUSCULAR VOLUME (BEAKER) 88 fL 79-95 (test code = 753) MEAN CORPUSCULAR HEMOGLOBIN 28.6 pg 25.6-32.2 (BEAKER) (test code = 751) MEAN CORPUSCULAR HEMOGLOBIN CONC 32.6 GM/DL 32.2-35.5 (BEAKER) (test code = 752) RED CELL DISTRIBUTION WIDTH 18.5 % 11.7-14.4 H (BEAKER) (test code = 412) PLATELET COUNT (BEAKER) (test 173 K/CU MM 150-450 code = 756) MEAN PLATELET VOLUME (BEAKER) 9.0 fL 9.4-12.3 L (test code = 754) NUCLEATED RED BLOOD CELLS 0 /100 WBC 0-0 (BEAKER) (test code = 413) POCT-GLUCOSE [id number] 21:37:28 Test Item Value Reference Range Interpretation Comments POC-GLUCOSE METER 117 mg/dL 70-110 H : TESTED Malena Vora [facility] 6720 (BEAKER) (test code = [place], 9972) [address]: Wheat Washer/Techni patricia ID = [id number] for LESLI MORLEY CT BRAIN WITHOUT IV [id number] 07:08:22 [facility] 1955 Sex: FCT Head without contrastCLINICAL HISTORY: Seizure, new-onset, no history of trauma TECHNIQUE: Contiguous axial CT images through the head without contrast.This exam was performed according to the departmental dose optimizationprogram which includes automated exposure control, adjustment of the mAand/or kV according to the patient size, and/or use of an iterativereconstruction technique.COMPARISON: NoneFINDINGS:There is no CT evidence of acute infarct or intracranial hemorrhage.There is atherosclerotic calcification of the intracranial circulation.There is mild generalized sulcal prominence without hydroc ephalus,midline shift, or apparent mass effect. There are no extra-axial fluidcollections. The skullis intact. The visualized paranasal sinuses arewell- aerated. IMPRESSION:No CT evidence of acute infarct, hemorrhage, or hydrocephalus.Electronically Signed By: Jeferson Novak03/07/2023 07:10 CDTWorkstation Name: [id number] METABOLIC [id number] 03:31:07 Test Item Value Reference Range Interpretation Comments SODIUM (BEAKER) 139 meq/L 136-145 (test code = 381) POTASSIUM 4.2 meq/L 3.5-5.1 (BEAKER) (test code = 379) CHLORIDE (BEAKER) 102 meq/L 98-107 (test code = 382) CO2 (BEAKER) 14 meq/L 22-29 L (test code = 355) BLOOD UREA 94 mg/dL 7-21 H NITROGEN (BEAKER) (test code = 354) CREATININE 7.33 mg/dL 0.57-1.25 H (BEAKER) (test code = 358) GLUCOSE RANDOM 101 mg/dL 70-105 (BEAKER) (test code = 652) CALCIUM (BEAKER) 8.9 mg/dL 8.4-10.2 (test code = 697) EGFR (BEAKER) 6 Interpretatio n of eGFR (test code = mL/min/1.73 values Stage De scription 1092) sq m Result G1 Keiry l or high >=90 G2 Mildly decreased 60-89 G3a Mildl y to moderately 45-5 9 G3b Moderately to s everely 30-44 G4 Severl y decreased 15-29 G5 Kidney failure <15Reported eGF R is based on the CKD-EPI 2020 equation that d oes not use a race coefficientEsti mated GFR is not as accur ate as Creatinine Birdie lillian in predicting glom erular filtration rate . Estimated GFR is not appl icable for dialysis patien ts Wheat Washer ID - ADMINCBC W/PLT COUNT & AUTO [id number] 03:15:35 Test Item Value Reference Range Interpretation Comments WHITE BLOOD CELL COUNT (BEAKER) 10.2 K/ L 3.5-10.5 (test code = 775) RED BLOOD CELL COUNT (BEAKER) 2.34 M/ L 3.93-5.22 L (test code = 761) HEMOGLOBIN (BEAKER) (test code = 6.6 GM/DL 11.2-15.7 L 410) HEMATOCRIT (BEAKER) (test code = 21.2 % 34.1-44.9 L 411) MEAN CORPUSCULAR VOLUME (BEAKER) 91 fL 79-95 (test code = 753) MEAN CORPUSCULAR HEMOGLOBIN 28.2 pg 25.6-32.2 (BEAKER) (test code = 751) MEAN CORPUSCULAR HEMOGLOBIN CONC 31.1 GM/DL 32.2-35.5 L (BEAKER) (test code = 752) RED CELL DISTRIBUTION WIDTH 18.3 % 11.7-14.4 H (BEAKER) (test code = 412) PLATELET COUNT (BEAKER) (test 143 K/CU MM 150-450 L code = 756) MEAN PLATELET VOLUME (BEAKER) 9.1 fL 9.4-12.3 L (test code = 754) NUCLEATED RED BLOOD CELLS 0 /100 WBC 0-0 (BEAKER) (test code = 413) NEUTROPHILS RELATIVE PERCENT 85 % (BEAKER) (test code = 429) LYMPHOCYTES RELATIVE PERCENT 8 % (BEAKER) (test code = 430) MONOCYTES RELATIVE PERCENT 5 % (BEAKER) (test code = 431) EOSINOPHILS RELATIVE PERCENT 1 % (BEAKER) (test code = 432) BASOPHILS RELATIVE PERCENT 0 % (BEAKER) (test code = 437) NEUTROPHILS ABSOLUTE COUNT 8.66 K/ L 1.56-6.13 H (BEAKER) (test code = 670) LYMPHOCYTES ABSOLUTE COUNT 0.78 K/ L 1.18-3.74 L (BEAKER) (test code = 414) MONOCYTES ABSOLUTE COUNT (BEAKER) 0.55 K/ L 0.24-0.36 H (test code = 415) EOSINOPHILS ABSOLUTE COUNT 0.13 K/ L 0.04-0.36 (BEAKER) (test code = 416) BASOPHILS ABSOLUTE COUNT (BEAKER) 0.02 K/ L 0.01-0.08 (test code = 417) IMMATURE GRANULOCYTES-RELATIVE 0.80 % 0.00-1.00 PERCENT (BEAKER) (test code = 2801) POCT-GLUCOSE [id number] 22:50:12 Test Item Value Reference Range Interpretation Comments POC-GLUCOSE METER 104 mg/dL 70-110 : TESTED A T [facility] 6720 (BEAKER) (test code = [facility], 1538) [address]: Wheat Washer/Techni patricia ID = [id number] for MICHAEL PENALOZA POCT-GLUCOSE [id number] 16:58:37 Test Item Value Reference Range Interpretation Comments POC-GLUCOSE METER 80 mg/dL 70-110 : TESTED A T [facility] 6720 (BEAKER) (test code = [facility], 1538) [address]: Wheat Washer/Techni patricia ID = [id number] for Biju Ibarra HEPATITIS B SURFACE [id number] 14:54:34 Test Item Value Reference Range Interpretation Comments HEPATITIS B SURFACE ANTIGEN (2) Nonreactive Nonreactive (BEAKER) (test code = 2585) Specimen is considered negative for HBsAg.POCT-GLUCOSE [id number] 14:04:25 Test Item Value Reference Range Interpretation Comments POC-GLUCOSE METER 87 mg/dL 70-110 : TESTED A T [facility] ([place]) (test code = [place], 1538) [address]: Wheat Washer/Techni patricia ID = [id number] for Biju Ibarra HEMOGLOBIN [id number] 12:32:12 Test Item Value Reference Range Interpretation Comments HEMOGLOBIN A1C 5.9 % See_Comment H [Automated m essage] ELECTROPHORESIS (TRAN) The system which (test code = 3811) generated this result transmitted ref erence range: <=5.6%. The reference range was not used to int erpret this result as normal/abnormal . "The A1c is measured using a NGSP-certified method. HbA1c value equal to or greater than 6.5% as thediagnosis cutoff for diabetes. An HbA1c value of 5.7- 6.4% indicates increased risk for diabetes (prediabetes)."Wheat Washer ID - [id number] ID - [id number] ID - ADMPOCT-GLUCOSE [id number] 10:32:20 Test Item Value Reference Range Interpretation Comments POC-GLUCOSE METER 87 mg/dL 70-110 : TESTED A T [facility] 6720 ([place]) (test code = [place], 1538) [address]: Wheat Washer/Techni patricia ID = [id number] for Biju Ibarra XR KNEE 1 OR 2 VIEWS [id number] 10:23:39 [facility] : 1955 Sex: FCLINICAL HISTORY: infected knee replacementTECHNIQUE: Two views of the bilateral kneesCOMPARISON: NoneFINDINGS:Left:No acute fracture or malalignment. Postoperative changes from total kneearthroplasty.No radiopaque foreign body in the soft tissues. No significant softtissues swelling. Extensive atherosclerotic vascular calcifications. Right:No acute fracture or malalignment. Postoperative changes from total kneearthroplasty.No radiopaque foreign body in the soft tissues. No significant softtissues swelling. Extensive atherosclerotic vascular calcifications. IMPRESSION:Left:1. No acute fracture or malalignment.2. Postoperative changes from total knee arthroplasty.Right:1. No acute fracture or malalignment.2. Postoperative changes from total knee arthroplasty.Electronically Signed By: Garret Morel03/06/2023 10:25 CDTWorkstation Name: [id number] KNEE 1 OR 2 VIEWS [id number] 10:23:39 [facility] COLLEEN : 1955 Sex: FCLINICAL HISTORY: infected knee replacementTECHNIQUE: Two views of the bilateral kneesCOMPARISON: NoneFINDINGS:Left:No acute fracture or malalignment. Postoperative changes from total kneearthroplasty.No radiopaque foreign body in the soft tissues. No significant softtissues swelling. Extensive atherosclerotic vascular calcifications. Right:No acute fracture or malalignment. Postoperative changes from total kneearthroplasty.No radiopaque foreign body in the soft tissues. No significant softtissues swelling. Extensive atherosclerotic vascular calcifications. IMPRESSION:Left:1. No acute fracture or malalignment.2. Postoperative changes from total knee arthroplasty.Right:1. No acute fracture or malalignment.2. Postoperative changes from total knee arthroplasty.Electronically Signed By: Garret Morel03/06/2023 10:25 CDTWorkstation Name: [id number], [id number] 05:09:13 Test Item Value Reference Range Interpretation Comments VITAMIN D 25-OH (BEAKER) (test 45.0 ng/mL 6.6-49.9 code = 2764) Effective 04/18/2017: Reference Range ChangeNew: 6.6-49.9 ng/mL Previous: 13.0- 47.8 ng/mLRecommendedVitamin D Target Range: 30.0-40.0 ng/mLOperator ID - ADMIN VANCOMYCIN LEVEL, [id number] 05:02:30 Test Item Value Reference Range Interpretation Comments VANCOMYCIN RANDOM (BEAKER) (test 14.5 ug/mL code = 523) Reference Range: No NormalsOperator ID - ADMINPTH, [id number] 04:47:29 Test Item Value Reference Range Interpretation Comments PARATHYROID HORMONE INTACT 438.8 pg/mL 8.5-72.5 H (BEAKER) (test code = 577) Wheat Washer ID - ADMINLACTIC ACID, [id number] 02:49:21 Test Item Value Reference Range Interpretation Comments LACTATE BLOOD VENOUS (2) (BEAKER) 0.85 mmol/L 0.50-2.00 (test code = 2872) Wheat Washer ID - ADMINLIPID [id number] 02:07:07 Test Item Value Reference Range Interpretation Comments TRIGLYCERIDES (BEAKER) (test code = 77 mg/dL 540) CHOLESTEROL (BEAKER) (test code = 97 mg/dL 631) HDL CHOLESTEROL (BEAKER) (test code 25 mg/dL = 976) LDL CHOLESTEROL CALCULATED (BEAKER) 57 mg/dL (test code = 633) Triglyceride Reference Range: Low Risk <150 Borderline 150-199 High Risk 200- 499 Very High Risk >=500Cholesterol Reference Range: Low Risk <200 Borderline 200-239 High Risk >240HDL Cholesterol Reference Range: Low Risk >=60 High Risk <40LDL Cholesterol Reference Range: Optimal <100 Near Optimal 100-129 Borderline 130-159 High 160-189 Very High >=190 Wheat Washer ID - ADMINCOMPREHENSIVE METABOLIC [id number] 01:49:14 Test Item Value Reference Range Interpretation Comments TOTAL PROTEIN 6.5 gm/dL 6.0-8.3 (BEAKER) (test code = 770) ALBUMIN (BEAKER) 3.2 g/dL 3.5-5.0 L (test code = 1145) ALKALINE 151 U/L 40-150 H PHOSPHATASE (BEAKER) (test code = 346) BILIRUBIN TOTAL 0.4 mg/dL 0.2-1.2 (BEAKER) (test code = 377) SODIUM (BEAKER) 140 meq/L 136-145 (test code = 381) POTASSIUM (BEAKER) 3.4 meq/L 3.5-5.1 L (test code = 379) CHLORIDE (BEAKER) 103 meq/L 98-107 (test code = 382) CO2 (BEAKER) (test 15 meq/L 22-29 L code = 355) BLOOD UREA 79 mg/dL 7-21 H NITROGEN (BEAKER) (test code = 354) CREATININE 6.52 mg/dL 0.57-1.25 H (BEAKER) (test code = 358) GLUCOSE RANDOM 75 mg/dL 70-105 (BEAKER) (test code = 652) CALCIUM (BEAKER) 8.7 mg/dL 8.4-10.2 (test code = 697) AST (SGOT) 18 U/L 5-34 (BEAKER) (test code = 353) ALT (SGPT) 13 U/L 6-55 (BEAKER) (test code = 347) EGFR (BEAKER) 7 Interpretatio n of eGFR (test code = 1092) mL/min/1.[address] age Description sq m Result G1 Keiry l or high >=90 G2 Mildly decreased 60-89 G3a Mildl y to moderately 45-5 9 G3b Moderately to s everely 30-44 G4 Severl y decreased 15-29 G5 Kidney failure <15Reported eGF R is based on the CKD-EPI 2021 equation that d oes not use a race coefficientEsti mated GFR is not as accur ate as Creatinine Birdie lillian in predicting glom erular filtration rate . Estimated GFR is not appl icable for dialysis patien ts Wheat Washer ID - ADMINHIGH SENSITIVITY TROPONIN [id number] 01:49:09 Test Item Value Reference Range Interpretation Comments HIGH SENSITIVITY 50 pg/ml See_Comment H [Automated message] TROPONIN I (test code = The system which [id number]) generated this result transmitted ref erence range: <=17. Th e reference range was not used to int erpret this result as normal/abnormal . Wheat Washer ID - ADMINThe SENIOR SALES OPERATIONS ANALYST STAT High Sensitivity Troponin-I results should be used in conjunction with other diagnostic information such as ECG, clinical observations and information, and patientsymptoms to aid in the diagnosis of [place]. B-TYPE NATRIURETIC FACTOR (BNP)2023-03-06 01:48:05 Test Item Value Reference Range Interpretation Comments B-TYPE NATRIURETIC PEPTIDE 2119 pg/mL 0-100 H (BEAKER) (test code = 700) Wheat Washer ID - [id number] 01:47:32 Test Item Value Reference Range Interpretation Comments MAGNESIUM (BEAKER) (test code = 2.0 mg/dL 1.6-2.6 627) Wheat Washer ID - [id number] 01:47:32 Test Item Value Reference Range Interpretation Comments PHOSPHORUS (BEAKER) (test code = 8.1 mg/dL 2.3-4.7 H 604) Wheat Washer ID - ADMINPROTHROMBIN [id number] 01:41:06 Test Item Value Reference Range Interpretation Comments PROTIME (BEAKER) 17.0 seconds 11.9-14.2 H (test code = 759) INR (BEAKER) (test 1.48 See_Comment [Automat ed message] code = 370) The system 51wan generated this result transmitted ref erence range: <=5.90. The reference range was not used to int erpret this result as normal/abnormal . RECOMMENDED COUMADIN/WARFARIN INR THERAPY RANGESSTANDARD DOSE: 2.0 - 3.0 Includes: PROPHYLAXIS for venous thrombosis, systemic embolization; TREATMENT for venous thrombosis and/or pulmonary embolus.HIGH RISK: Target INR is 2.5-3.5 for patients with mechanical heart valves.CBC W/PLT COUNT & AUTO [id number] 01:38:18 Test Item Value Reference Range Interpretation Comments WHITE BLOOD CELL COUNT (BEAKER) 10.7 K/ L 3.5-10.5 H (test code = 775) RED BLOOD CELL COUNT (BEAKER) 2.12 M/ L 3.93-5.22 L (test code = 761) HEMOGLOBIN (BEAKER) (test code = 6.0 GM/DL 11.2-15.7 LL 410) HEMATOCRIT (BEAKER) (test code = 19.6 % 34.1-44.9 L 411) MEAN CORPUSCULAR VOLUME (BEAKER) 93 fL 79-95 (test code = 753) MEAN CORPUSCULAR HEMOGLOBIN 28.3 pg 25.6-32.2 (BEAKER) (test code = 751) MEAN CORPUSCULAR HEMOGLOBIN CONC 30.6 GM/DL 32.2-35.5 L (BEAKER) (test code = 752) RED CELL DISTRIBUTION WIDTH 16.7 % 11.7-14.4 H (BEAKER) (test code = 412) PLATELET COUNT (BEAKER) (test 149 K/CU MM 150-450 L code = 756) MEAN PLATELET VOLUME (BEAKER) 8.8 fL 9.4-12.3 L (test code = 754) NUCLEATED RED BLOOD CELLS 0 /100 WBC 0-0 (BEAKER) (test code = 413) NEUTROPHILS RELATIVE PERCENT 88 % (BEAKER) (test code = 429) LYMPHOCYTES RELATIVE PERCENT 7 % (BEAKER) (test code = 430) MONOCYTES RELATIVE PERCENT 4 % (BEAKER) (test code = 431) EOSINOPHILS RELATIVE PERCENT 1 % (BEAKER) (test code = 432) BASOPHILS RELATIVE PERCENT 0 % (BEAKER) (test code = 437) NEUTROPHILS ABSOLUTE COUNT 9.35 K/ L 1.56-6.13 H (BEAKER) (test code = 670) LYMPHOCYTES ABSOLUTE COUNT 0.75 K/ L 1.18-3.74 L (BEAKER) (test code = 414) MONOCYTES ABSOLUTE COUNT (BEAKER) 0.40 K/ L 0.24-0.36 H (test code = 415) EOSINOPHILS ABSOLUTE COUNT 0.10 K/ L 0.04-0.36 (BEAKER) (test code = 416) BASOPHILS ABSOLUTE COUNT (BEAKER) 0.02 K/ L 0.01-0.08 (test code = 417) IMMATURE GRANULOCYTES-RELATIVE 0.70 % 0.00-1.00 PERCENT (BEAKER) (test code = 2801) XR CHEST 1 VIEW PORTABLE / [id number] 01:36:37 [facility] : 1955 Sex: FAP portable chest x-ray. History hypoxia.FINDINGS: There is confluent airspace disease in the left lung anddiffuse severe interstitial opacification of both lungs. The heart sizeis normal.IMPRESSION:Diffuse bilateral pneumonia with pulmonary edema patternalso. Normal heart size. Consider follow-up CT scan of the chest.Electronically Signed By: Jhoan Patel03/06/2023 01:38 CDTWorkstation Name: [id number] 01:24:36 Test Item Value Reference Range Interpretation Comments POC-HEMATOCRIT 17 % 36-45 L : Wheat Washer/Te chnician ID = (SAWAKER) (test code = 582212 for DESIRE [place] 185) [id number] 01:24:36 Test Item Value Reference Range Interpretation Comments POC-GLUCOSE ([facility]) 76 mg/dL 70-110 : TESTE D AT [place] [address] (test code = 1855) [place], [address]: Wheat Washer/Techni patricia ID = [id number] for DESIRE NAYLOR [id number] 01:24:35 Test Item Value Reference Range Interpretation Comments POC-HEMOGLOBIN 5.8 g/dL 12.0-15.0 LL : TESTED AT [facility] (test code = [place], 1856) [address]: Wheat Washer/Techni patricia ID = [id number] for DESIRE NAYLOR [id number] 01:24:30 Test Item Value Reference Range Interpretation Comments POC-SODIUM ([facility]) 138 meq/L 135-148 : TESTED AT [place] [address] (test code = 1542) [place], [address]: Wheat Washer/Techni patricia ID = [id number] for DESIRE NAYLOR [id number] 01:24:30 Test Item Value Reference Range Interpretation Comments POC-POTASSIUM 3.3 meq/L 3.6-5.5 L : TESTED AT [facility] 6720 ([facility]) (test code [facility], = 1540) [address]: Wheat Washer/Techni patricia ID = [id number] for DESIRE NAYLOR POCT-BLOOD GASES, [id number] 01:24:29 Test Item Value Reference Range Interpretation Comments TEMP, CELSIUS-POC 98.0 (BEAKER) (test code = 1834) FIO2-POC (BEAKER) 27 (test code = 1835) PH, ARTERIAL-POC 7.35 7.35-7.45 (BEAKER) (test code = 1836) PCO2, ARTERIAL-POC 33.0 mm Hg 35.0-45.0 L If pO2 is >180, pCO2 may (BEAKER) (test code be posit ively biased = 1837) PO2, ARTERIAL-POC 69.0 mm Hg 80.0-90.0 L (BEAKER) (test code = 1838) SO2, ARTERIAL-POC 93.0 % 96.0-97.0 L (BEAKER) (test code = 1839) HCO3, ARTERIAL-POC 18.2 meq/L 21.0-29.0 L (BEAKER) (test code = 1840) BASE EXCESS, -7.0 meq/L -2.0-3.0 L : TESTED AT [facility] 6720 ARTERIAL-POC [facility], (AKER) (test code [address]: = 1841) Wheat Washer/Techni patricia ID = [id number] for DESIRE NAYLOR POCT-GLUCOSE [id number] 00:59:59 Test Item Value Reference Range Interpretation Comments POC-GLUCOSE METER 85 mg/dL 70-110 : TESTED A T [facility] 6720 ([facility]) (test code = [facility], 1538) [address]: Wheat Washer/Techni patricia ID = [id number] for Aracelis Duarte POCT GLUCOSE (AUTOMATED)2022-12-22 16:45:56 Test Item Value Reference Range Interpretation Comments POCT GLU (test code = 0526559133) 137 mg/dL 70-110 H Lab Interpretation (test code = Abnormal 86580-4) [facility] 16:45:56 Test Item Value Reference Range Interpretation Comments POCT GLU (test code = 1524832711) 137 mg/dL 70-110 H Lab Interpretation (test code = Abnormal 32409-5) [facility] 11:07:25 Test Item Value Reference Range Interpretation Comments POCT GLU (test code = 8008508679) 97 mg/dL 70-110 Lab Interpretation (test code = Normal 06406-0) [facility] 11:07:25 Test Item Value Reference Range Interpretation Comments POCT GLU (test code = 9085982372) 97 mg/dL 70-110 Lab Interpretation (test code = Normal 24722-3) [facility] GLUCOSE (AUTOMATED)2022-12-22 05:06:33 Test Item Value Reference Range Interpretation Comments POCT GLU (test code = 7909958617) 117 mg/dL 70-110 H Lab Interpretation (test code = Abnormal 12670-5) [facility] GLUCOSE (AUTOMATED)2022-12-22 05:06:33 Test Item Value Reference Range Interpretation Comments POCT GLU (test code = 6388663304) 117 mg/dL 70-110 H Lab Interpretation (test code = Abnormal 99716-5) [facility] 23:17:30 Test Item Value Reference Range Interpretation Comments POCT GLU (test code = 5436377195) 77 mg/dL 70-110 Lab Interpretation (test code = Normal 36747-3) [facility] 23:17:30 Test Item Value Reference Range Interpretation Comments POCT GLU (test code = 8637843441) 77 mg/dL 70-110 Lab Interpretation (test code = Normal 86053-6) [facility] 17:17:55 Test Item Value Reference Range Interpretation Comments POCT GLU (test code = 7517762402) 120 mg/dL 70-110 H Lab Interpretation (test code = Abnormal 95771-2) [facility] 17:17:55 Test Item Value Reference Range Interpretation Comments POCT GLU (test code = 7276629830) 120 mg/dL 70-110 H Lab Interpretation (test code = Abnormal 25461-6) [facility] GLUCOSE (AUTOMATED)2022-12-21 11:10:25 Test Item Value Reference Range Interpretation Comments POCT GLU (test code = 7244967468) 114 mg/dL 70-110 H Lab Interpretation (test code = Abnormal 38292-0) [facility] GLUCOSE (AUTOMATED)2022-12-21 11:10:25 Test Item Value Reference Range Interpretation Comments POCT GLU (test code = 2890266422) 114 mg/dL 70-110 H Lab Interpretation (test code = Abnormal 78901-7) [facility] CULTURE [id number] 11:01:49 Test Item Value Reference Range Interpretation Comments Blood Culture-Aerobic No organisms No growth Previo us (test code = 44351-8) isolated prelim inary verified result was Culture [...] Culture-Anaerobic isolated preliminar y (test code = 16218-2) verifi ed result was Culture In Progress on 12/16/2022 at 09 CDTPrevious preliminary verified result was No growth a t 24 hours on 12/17/2022 at 06 CDTPrevious preliminary verified result was No growth a t 48 hours on 12/18/2022 at 06 CDTPrevious preliminary verified result was No growth a t 72 hours on 12/19/2022 at 06 CDT Lab Interpretation Normal (test code = 32357-3) [facility] CULTURE [id number] 11:01:49 Test Item Value Reference Range Interpretation Comments Blood Culture-Aerobic No organisms No growth Previo us (test code = 76503-3) isolated prelim inary verified result was Culture [...] Culture-Anaerobic isolated preliminar y (test code = 78624-4) verifi ed result was Culture In Progress [...] CDT Lab Interpretation Normal (test code = 07555-9) [facility] GLUCOSE (AUTOMATED)2022-12-21 05:17:25 Test Item Value Reference Range Interpretation Comments POCT GLU (test code = 2975808845) 120 mg/dL 70-110 H Lab Interpretation (test code = Abnormal 85476-4) [facility] GLUCOSE (AUTOMATED)2022-12-21 05:17:25 Test Item Value Reference Range Interpretation Comments POCT GLU (test code = 0033303751) 120 mg/dL 70-110 H Lab Interpretation (test code = Abnormal 30040-1) [facility] GLUCOSE (AUTOMATED)2022-12-20 23:02:14 Test Item Value Reference Range Interpretation Comments POCT GLU (test code = 1273678887) 155 mg/dL 70-110 H Lab Interpretation (test code = Abnormal 70726-2) [facility] GLUCOSE (AUTOMATED)2022-12-20 23:02:14 Test Item Value Reference Range Interpretation Comments POCT GLU (test code = 0785330904) 155 mg/dL 70-110 H Lab Interpretation (test code = Abnormal 05052-2) [facility] GLUCOSE (AUTOMATED)2022-12-20 16:58:40 Test Item Value Reference Range Interpretation Comments POCT GLU (test code = 7971803216) 150 mg/dL 70-110 H Lab Interpretation (test code = Abnormal 98797-9) [facility] 16:58:40 Test Item Value Reference Range Interpretation Comments POCT GLU (test code = 6543619048) 150 mg/dL 70-110 H Lab Interpretation (test code = Abnormal 22588-5) [facility] 10:30[facility]39 Test Item Value Reference Range Interpretation Comments MAGNESIUM (test code = 3009766472) 1.7 mg/dL 1.7-2.4 Lab Interpretation (test code = Normal 35757-2) [facility] 10:30:39 Test Item Value Reference Range Interpretation Comments MAGNESIUM (test code = 5072934306) 1.7 mg/dL 1.7-2.4 Lab Interpretation (test code = Normal 11269-3) [facility] METABOLIC PANEL (NA, K, CL, CO2, GLUCOSE, BUN, CREATININE, CA)2022-12-20 10:30:38 Test Item Value Reference Range Interpretation Comments NA (test code = 136 mmol/L 135-145 0046180815) K (test code = 4.1 mmol/L 3.5-5.0 9170503613) CL (test code = 101 mmol/L 98-108 4987560003) CO2 TOTAL (test code = 24 mmol/L 23-31 9940431555) AGAP (test code = 11 2-16 1472749319) BUN (test code = 46 mg/dL 7-23 H 4956820641) GLUCOSE (test code = 134 mg/dL 70-110 H 5295612055) CREATININE (test code = 4.18 mg/dL 0.50-1.04 H 1972995356) CALCIUM (test code = 8.5 mg/dL 8.6-10.6 L 7953061887) eGFR (test code = 10.6 mL/min/1.73m2 0353220581) BRAD (test code = BRAD) Association of [...] tests). Lab Interpretation Abnormal (test code = 38759-8) [facility] METABOLIC PANEL (NA, K, CL, CO2, GLUCOSE, BUN, CREATININE, CA)2022-12-20 10:30:38 Test Item Value Reference Range Interpretation Comments NA (test code = 136 mmol/L 135-145 0867494944) K (test code = 4.1 mmol/L 3.5-5.0 1668117524) CL (test code = 101 mmol/L 98-108 9906697184) CO2 TOTAL (test code = 24 mmol/L 23-31 0693354242) AGAP (test code = 11 2-16 2610086922) BUN (test code = 46 mg/dL 7-23 H 5057997477) GLUCOSE (test code = 134 mg/dL 70-110 H 3665605797) CREATININE (test code = 4.18 mg/dL 0.50-1.04 H 7129575385) CALCIUM (test code = 8.5 mg/dL 8.6-10.6 L 0952329164) eGFR (test code = 10.6 mL/min/1.73m2 7865148371) BRAD (test code = BRAD) Association of [...] tests). Lab Interpretation Abnormal (test code = 00565-7) [facility] (ALB,T.PRO,BILI T,BU/BC,ALT,AST,ALK PHOS)2022-12-20 10:30:18 Test Item Value Reference Range Interpretation Comments TOTAL BILI (test code = 2779507401) 0.5 mg/dL 0.1-1.1 BILI UNCON (test code = 0951143200) 0.0 mg/dL 0.1-1.1 L BILI CONJ (test code = 5920947684) 0.0 mg/dL 0.0-0.3 T PROTEIN (test code = 1949409643) 5.9 g/dL 6.3-8.2 L ALBUMIN (test code = 0398848353) 2.9 g/dL 3.5-5.0 L ALK PHOS (test code = 1125093932) 183 U/L 34-122 H ALTv (test code = 1742-6) 10 U/L 5-35 AST(SGOT) (test code = 2945962502) 46 U/L 13-40 H Lab Interpretation (test code = Abnormal 50504-4) [facility] 10:30:18 Test Item Value Reference Range Interpretation Comments PHOSPHORUS (test code = 6831455207) 4.4 mg/dL 2.5-5.0 Lab Interpretation (test code = Normal 53870-2) [facility] (ALB,T.PRO,BILI T,BU/BC,ALT,AST,ALK PHOS)2022-12-20 10:30:18 Test Item Value Reference Range Interpretation Comments TOTAL BILI (test code = 0970368628) 0.5 mg/dL 0.1-1.1 BILI UNCON (test code = 0738542232) 0.0 mg/dL 0.1-1.1 L BILI CONJ (test code = 6120800569) 0.0 mg/dL 0.0-0.3 T PROTEIN (test code = 1114877710) 5.9 g/dL 6.3-8.2 L ALBUMIN (test code = 0764290494) 2.9 g/dL 3.5-5.0 L ALK PHOS (test code = 6731558785) 183 U/L 34-122 H ALTv (test code = 1742-6) 10 U/L 5-35 AST(SGOT) (test code = 1093568714) 46 U/L 13-40 H Lab Interpretation (test code = Abnormal 37941-4) [facility] 10:30:18 Test Item Value Reference Range Interpretation Comments PHOSPHORUS (test code = 2406892258) 4.4 mg/dL 2.5-5.0 Lab Interpretation (test code = Normal 27293-4) [facility] [id number] 10:01:54 Test Item Value Reference Range Interpretation [...] (test code = 51.4 fL 39.0-49.9 H 70585-0) RDW-CV (test code = 15.2 % 12.0-15.5 788-0) PLT (test code = 167 See_Comment [Automated 777-3) message] The sy stem which generated this result transmitted reference range : 166 - 358 10*3/ ?L. The reference r chikis was not used to interpret this result as normal/abnormal . MPV (test code = 9.5 fL 9.5-12.9 70851-2) NRBC/100 WBC (test 0.0 See_Comment [Automat ed code = 3018406253) message] The system which generated this result transmitted reference range : 0.0 - 10.0 /100 WBCs. The refer ence range was not u sed to interpret th is result as normal/abnormal . NRBC x10^3 (test code See_Comment [Auto mated = 9102638369) message] The s ystem which generated this result transmitted reference range : 10*3/?L. The reference range was not used to interpret this result as normal/abnormal . GRAN MAT (NEUT) % 76.9 % (test code = 770-8) IMM GRAN % (test code 1.10 % = 7532611377) LYMPH % (test code = 12.5 % 736-9) MONO % (test code = 6.6 % 5905-5) EOS % (test code = 2.7 % 713-8) BASO % (test code = 0.2 % 706-2) GRAN MAT x10^3(ANC) 7.31 10*3/uL 1.88-7.09 H (test code = 0922550065) IMM GRAN x10^3 (test 0.10 10*3/uL 0.00-0.06 H code = 0990163994) LYMPH x10^3 (test code 1.19 10*3/uL 1.32-3.29 L = 731-0) MONO x10^3 (test code 0.63 10*3/uL 0.33-0.92 = 742-7) EOS x10^3 (test code = 0.26 10*3/uL 0.03-0.39 711-2) BASO x10^3 (test code 0.01-0.07 = 704-7) Lab Interpretation Abnormal (test code = 45740-6) [facility] WITH [id number] 10:01:54 Test Item Value Reference Range Interpretation Comments WBC (test code = 9.51 See_Comment [Automated 6690-2) message] The sy stem which generated this result transmitted reference range : 4.30 - 11.10 10*3/?L. The reference range was not used to interpret this result as normal/abnormal . RBC (test code = 2.60 See_Comment L [Automated 9-8) message] The sy stem which generated this [...] (test code = 51.4 fL 39.0-49.9 H 07884-9) RDW-CV (test code = 15.2 % 12.0-15.5 788-0) PLT (test code = 167 See_Comment [Automated 777-3) message] The sy stem which generated this result transmitted reference range : 166 - 358 10*3/ ?L. The reference r chikis was not used to interpret this result as normal/abnormal . MPV (test code = 9.5 fL 9.5-12.9 76440-2) NRBC/100 WBC (test 0.0 See_Comment [Automat ed code = 6496752645) message] The system which generated this result transmitted reference range : 0.0 - 10.0 /100 WBCs. The refer ence range was not u sed to interpret th is result as normal/abnormal . NRBC x10^3 (test code See_Comment [Auto mated = 1957894289) message] The s ystem which generated this result transmitted reference range : 10*3/?L. The reference range was not used to interpret this result as normal/abnormal . GRAN MAT (NEUT) % 76.9 % (test code = 770-8) IMM GRAN % (test code 1.10 % = 5603644666) LYMPH % (test code = 12.5 % 736-9) MONO % (test code = 6.6 % 5905-5) EOS % (test code = 2.7 % 713-8) BASO % (test code = 0.2 % 706-2) GRAN MAT x10^3(ANC) 7.31 10*3/uL 1.88-7.09 H (test code = 4064412154) IMM GRAN x10^3 (test 0.10 10*3/uL 0.00-0.06 H code = 5534579593) LYMPH x10^3 (test code 1.19 10*3/uL 1.32-3.29 L = 731-0) MONO x10^3 (test code 0.63 10*3/uL 0.33-0.92 = 742-7) EOS x10^3 (test code = 0.26 10*3/uL 0.03-0.39 711-2) BASO x10^3 (test code 0.01-0.07 = 704-7) Lab Interpretation Abnormal (test code = 19240-5) [facility] 09:11:49 Test Item Value Reference Range Interpretation Comments POCT GLU (test code = 9072192166) 145 mg/dL 70-110 H Lab Interpretation (test code = Abnormal 44975-2) [facility] GLUCOSE (AUTOMATED)2022-12-20 09:11:49 Test Item Value Reference Range Interpretation Comments POCT GLU (test code = 5793683439) 145 mg/dL 70-110 H Lab Interpretation (test code = Abnormal 85842-3) [facility] GLUCOSE (AUTOMATED)2022-12-20 05:18:45 Test Item Value Reference Range Interpretation Comments POCT GLU (test code = 2479334295) 137 mg/dL 70-110 H Lab Interpretation (test code = Abnormal 22454-2) [facility] GLUCOSE (AUTOMATED)2022-12-20 05:18:45 Test Item Value Reference Range Interpretation Comments POCT GLU (test code = 4074429957) 137 mg/dL 70-110 H Lab Interpretation (test code = Abnormal 72552-1) [facility] GLUCOSE (AUTOMATED)2022-12-19 23:10:55 Test Item Value Reference Range Interpretation Comments POCT GLU (test code = 7138708718) 171 mg/dL 70-110 H Lab Interpretation (test code = Abnormal 40398-9) [facility] GLUCOSE (AUTOMATED)2022-12-19 23:10:55 Test Item Value Reference Range Interpretation Comments POCT GLU (test code = 9842299028) 171 mg/dL 70-110 H Lab Interpretation (test code = Abnormal 31026-0) [facility] GLUCOSE (AUTOMATED)2022-12-19 16:54:04 Test Item Value Reference Range Interpretation Comments POCT GLU (test code = 7090153503) 152 mg/dL 70-110 H Lab Interpretation (test code = Abnormal 96446-1) [facility] 16:54:04 Test Item Value Reference Range Interpretation Comments POCT GLU (test code = 6669195844) 152 mg/dL 70-110 H Lab Interpretation (test code = Abnormal 02427-8) [facility] GLUCOSE (AUTOMATED)2022-12-19 11:09:49 Test Item Value Reference Range Interpretation Comments POCT GLU (test code = 4965280358) 113 mg/dL 70-110 H Lab Interpretation (test code = Abnormal 69559-8) [facility] 11:09:49 Test Item Value Reference Range Interpretation Comments POCT GLU (test code = 5185125102) 113 mg/dL 70-110 H Lab Interpretation (test code = Abnormal 56659-7) [facility] GLUCOSE (AUTOMATED)2022-12-19 05:06:10 Test Item Value Reference Range Interpretation Comments POCT GLU (test code = 5097949807) 131 mg/dL 70-110 H Lab Interpretation (test code = Abnormal 07251-0) [facility] GLUCOSE (AUTOMATED)2022-12-19 05:06:10 Test Item Value Reference Range Interpretation Comments POCT GLU (test code = 6009884204) 131 mg/dL 70-110 H Lab Interpretation (test code = Abnormal 00018-7) [facility] 22:59:48 Test Item Value Reference Range Interpretation Comments POCT GLU (test code = 2838949944) 133 mg/dL 70-110 H Lab Interpretation (test code = Abnormal 77349-5) [facility] GLUCOSE (AUTOMATED)2022-12-18 22:59:48 Test Item Value Reference Range Interpretation Comments POCT GLU (test code = 3777995171) 133 mg/dL 70-110 H Lab Interpretation (test code = Abnormal 80742-4) [facility] GLUCOSE (AUTOMATED)2022-12-18 16:36:14 Test Item Value Reference Range Interpretation Comments POCT GLU (test code = 3609769543) 171 mg/dL 70-110 H Lab Interpretation (test code = Abnormal 65432-3) [facility] 16:36:14 Test Item Value Reference Range Interpretation Comments POCT GLU (test code = 8199906409) 171 mg/dL 70-110 H Lab Interpretation (test code = Abnormal 89334-7) [facility] GLUCOSE (AUTOMATED)2022-12-18 10:49:33 Test Item Value Reference Range Interpretation Comments POCT GLU (test code = 0222087913) 116 mg/dL 70-110 H Lab Interpretation (test code = Abnormal 49487-6) [facility] GLUCOSE (AUTOMATED)2022-12-18 10:49:33 Test Item Value Reference Range Interpretation Comments POCT GLU (test code = 9141768279) 116 mg/dL 70-110 H Lab Interpretation (test code = Abnormal 93077-8) [facility] GLUCOSE (AUTOMATED)2022-12-18 05:43:21 Test Item Value Reference Range Interpretation Comments POCT GLU (test code = 8682779114) 119 mg/dL 70-110 H Lab Interpretation (test code = Abnormal 63840-5) [facility] GLUCOSE (AUTOMATED)2022-12-18 05:43:21 Test Item Value Reference Range Interpretation Comments POCT GLU (test code = 8955108748) 119 mg/dL 70-110 H Lab Interpretation (test code = Abnormal 34615-6) [facility] GLUCOSE (AUTOMATED)2022-12-17 23:28:43 Test Item Value Reference Range Interpretation Comments POCT GLU (test code = 1368017278) 102 mg/dL 70-110 Lab Interpretation (test code = Normal 25102-3) [facility] GLUCOSE (AUTOMATED)2022-12-17 23:28:43 Test Item Value Reference Range Interpretation Comments POCT GLU (test code = 5397178648) 102 mg/dL 70-110 Lab Interpretation (test code = Normal 31538-4) [facility] GLUCOSE (AUTOMATED)2022-12-17 17:00:09 Test Item Value Reference Range Interpretation Comments POCT GLU (test code = 4949424289) 135 mg/dL 70-110 H Lab Interpretation (test code = Abnormal 00875-6) [facility] GLUCOSE (AUTOMATED)2022-12-17 17:00:09 Test Item Value Reference Range Interpretation Comments POCT GLU (test code = 7498307089) 135 mg/dL 70-110 H Lab Interpretation (test code = Abnormal 04320-7) [facility] [id number] 13:40:27 Test Item Value Reference Range Interpretation Comments Blood Culture-Aerobic Culture positive. No growth AA P revious (test code = 70241-8) See Blood Culture p reliminary Workup for verified result additional was Culture In information. Progress on 12/15/2022 at 062 6 CDT Blood Culture positive. No growth AA Previous Culture-Anaerobic See Blood Culture preli minary (test code = 51157-4) Workup for verifi ed result additional was Culture In information. Progress on 12/14/2022 at 220 1 CDT Lab Interpretation Abnormal (test code = 25670-8) [facility] Culture - Peripheral # [id number] 13:40:27 Test Item Value Reference Range Interpretation Comments Blood Culture-Aerobic Culture positive. No growth AA P revious (test code = 16431-4) See Blood Culture p reliminary Workup for verified result additional was Culture In information. Progress on 12/15/2022 at 062 7 CDT Blood Culture positive. No growth AA Previous Culture-Anaerobic See Blood Culture preli minary (test code = 88024-4) Workup for verifi ed result additional was Culture In information. Progress on 12/14/2022 at 220 1 CDT Lab Interpretation Abnormal (test code = 29463-5) [facility] CULTURE [id number] 13:40:27 Test Item Value Reference Range Interpretation Comments Blood Culture Staphylococcus aureus Organ ism identified Workup (test by DNA probeFor code = 600-7) susceptibility results, refer to culture # - [id number] Gram stain Isolated from aerobic This i s an appended (test code = bottle Gram positive report. These 664-3) cocci results have be en appended to a previously preliminary wesley ified report. [facility] Culture - Peripheral # [id number] 13:40:27 Test Item Value Reference Range Interpretation Comments Blood Culture-Aerobic Culture positive. No growth AA P revious (test code = 22759-7) See Blood Culture p reliminary Workup for verified result additional was Culture In information. Progress on 12/15/2022 at 062 6 CDT Blood Culture positive. No growth AA Previous Culture-Anaerobic See Blood Culture preli minary (test code = 50822-4) Workup for verifi ed result additional was Culture In information. Progress on 12/14/2022 at 220 1 CDT Lab Interpretation Abnormal (test code = 69697-4) [facility] Culture - Peripheral # 13:40:27 Test Item Value Reference Range Interpretation Comments Blood Culture-Aerobic Culture positive. No growth AA P revious (test code = 53054-0) See Blood Culture p reliminary Workup for verified result additional was Culture In information. Progress on 12/15/2022 at 062 7 CDT Blood Culture positive. No growth AA Previous Culture-Anaerobic See Blood Culture preli minary (test code = 36170-6) Workup for verifi ed result additional was Culture In information. Progress on 12/14/2022 at 220 1 CDT Lab Interpretation Abnormal (test code = 05620-0) [facility] CULTURE [id number] 13:40:27 Test Item Value Reference Range Interpretation Comments Blood Culture Staphylococcus aureus Organ ism identified Workup (test by DNA probeFor code = 600-7) susceptibility results, refer to culture # - [id number] Gram stain Isolated from aerobic This i s an appended (test code = bottle Gram positive report. These 664-3) cocci results have be en appended to a previously preliminary wesley ified report. [facility] GLUCOSE (AUTOMATED)2022-12-17 10:41:20 Test Item Value Reference Range Interpretation Comments POCT GLU (test code = 9926599970) 92 mg/dL 70-110 Lab Interpretation (test code = Normal 57926-5) [facility] GLUCOSE (AUTOMATED)2022-12-17 10:41:20 Test Item Value Reference Range Interpretation Comments POCT GLU (test code = 8113142212) 92 mg/dL 70-110 Lab Interpretation (test code = Normal 64964-7) [facility] GLUCOSE (AUTOMATED)2022-12-17 04:21:25 Test Item Value Reference Range Interpretation Comments POCT GLU (test code = 0708459062) 122 mg/dL 70-110 H Lab Interpretation (test code = Abnormal 66979-8) [facility] GLUCOSE (AUTOMATED)2022-12-17 04:21:25 Test Item Value Reference Range Interpretation Comments POCT GLU (test code = 5172754461) 122 mg/dL 70-110 H Lab Interpretation (test code = Abnormal 07260-4) [facility] GLUCOSE (AUTOMATED)2022-12-16 23:26:05 Test Item Value Reference Range Interpretation Comments POCT GLU (test code = 7967851344) 113 mg/dL 70-110 H Lab Interpretation (test code = Abnormal 06200-2) [facility] GLUCOSE (AUTOMATED)2022-12-16 23:26:05 Test Item Value Reference Range Interpretation Comments POCT GLU (test code = 9308551440) 113 mg/dL 70-110 H Lab Interpretation (test code = Abnormal 42520-3) [facility] GLUCOSE (AUTOMATED)2022-12-16 16:43:54 Test Item Value Reference Range Interpretation Comments POCT GLU (test code = 8016770170) 77 mg/dL 70-110 Lab Interpretation (test code = Normal 46469-7) [facility] GLUCOSE (AUTOMATED)2022-12-16 16:43:54 Test Item Value Reference Range Interpretation Comments POCT GLU (test code = 2403445268) 77 mg/dL 70-110 Lab Interpretation (test code = Normal 68109-5) [facility] [id number] 11:41:12 Test Item Value Reference Range Interpretation Comments TROPONIN I (test code = 0.106 ng/mL <=0.034 H 7062165827) BRAD (test code = BRAD) Reference (Normal) [...] biotin. Lab Interpretation Abnormal (test code = 97125-7) [facility] [id number] 11:41:12 Test Item Value Reference Range Interpretation Comments TROPONIN I (test code = 0.106 ng/mL <=0.034 H 1591047764) BRAD (test code = BRAD) Reference (Normal) [...] biotin. Lab Interpretation Abnormal (test code = 77108-6) [facility] METABOLIC PANEL (NA, K, CL, CO2, GLUCOSE, BUN, CREATININE, CA)2022-12-16 11:40:31 Test Item Value Reference Range Interpretation Comments NA (test code = 139 mmol/L 135-145 2194242010) K (test code = 3.6 mmol/L 3.5-5.0 7365040311) CL (test code = 104 mmol/L 98-108 0780020981) CO2 TOTAL (test code = 25 mmol/L 23-31 1433875273) AGAP (test code = 10 2-16 7624994730) BUN (test code = 30 mg/dL 7-23 H 9574403485) GLUCOSE (test code = 83 mg/dL 70-110 5848868318) CREATININE (test code = 3.06 mg/dL 0.50-1.04 H 1861827766) CALCIUM (test code = 9.0 mg/dL 8.6-10.6 4371233001) eGFR (test code = 15.3 mL/min/1.73m2 9710244419) BRAD (test code = BRAD) Association of [...] tests). Lab Interpretation Abnormal (test code = 81060-9) [facility] METABOLIC PANEL (NA, K, CL, CO2, GLUCOSE, BUN, CREATININE, CA)2022-12-16 11:40:31 Test Item Value Reference Range Interpretation Comments NA (test code = 139 mmol/L 135-145 9047849663) K (test code = 3.6 mmol/L 3.5-5.0 4941542800) CL (test code = 104 mmol/L 98-108 9575008063) CO2 TOTAL (test code = 25 mmol/L 23-31 6182280492) AGAP (test code = 10 2-16 6768417475) BUN (test code = 30 mg/dL 7-23 H 6599099203) GLUCOSE (test code = 83 mg/dL 70-110 0954598670) CREATININE (test code = 3.06 mg/dL 0.50-1.04 H 0295560632) CALCIUM (test code = 9.0 mg/dL 8.6-10.6 0791483390) eGFR (test code = 15.3 mL/min/1.73m2 4164642135) BRAD (test code = BRAD) Association of [...] tests). Lab Interpretation Abnormal (test code = 97910-8) [id number] 11:40:16 Test Item Value Reference Range Interpretation Comments VANCO RANDOM (test code = 18.0 ug/mL 1205299105) [facility] [id number] 11:40:16 Test Item Value Reference Range Interpretation Comments VANCO RANDOM (test code = 18.0 ug/mL 0383345137) [facility]ALB,T.PRO,BILI T,BU/BC,ALT,AST,ALK PHOS)2022-12-16 11:39:51 Test Item Value Reference Range Interpretation Comments TOTAL BILI (test code = 9213748464) 0.8 mg/dL 0.1-1.1 BILI UNCON (test code = 4106668092) 0.1 mg/dL 0.1-1.1 BILI CONJ (test code = 7798660822) 0.0 mg/dL 0.0-0.3 T PROTEIN (test code = 6217873113) 5.4 g/dL 6.3-8.2 L ALBUMIN (test code = 0417654811) 2.5 g/dL 3.5-5.0 L ALK PHOS (test code = 8340525518) 155 U/L 34-122 H ALTv (test code = 1742-6) 19 U/L 5-35 AST(SGOT) (test code = 2315975255) 30 U/L 13-40 Lab Interpretation (test code = Abnormal 88254-9) [facility] (ALB,T.PRO,BILI T,BU/BC,ALT,AST,ALK PHOS)2022-12-16 11:39:51 Test Item Value Reference Range Interpretation Comments TOTAL BILI (test code = 4523714277) 0.8 mg/dL 0.1-1.1 BILI UNCON (test code = 2299953713) 0.1 mg/dL 0.1-1.1 BILI CONJ (test code = 3194410143) 0.0 mg/dL 0.0-0.3 T PROTEIN (test code = 3637120642) 5.4 g/dL 6.3-8.2 L ALBUMIN (test code = 9239363433) 2.5 g/dL 3.5-5.0 L ALK PHOS (test code = 2569299006) 155 U/L 34-122 H ALTv (test code = 1742-6) 19 U/L 5-35 AST(SGOT) (test code = 9475377950) 30 U/L 13-40 Lab Interpretation (test code = Abnormal 44205-6) [facility] 11:15:55 Test Item Value Reference Range Interpretation Comments POCT GLU (test code = 3169823063) 94 mg/dL 70-110 Lab Interpretation (test code = Normal 28586-8) [facility] GLUCOSE (AUTOMATED)2022-12-16 11:15:55 Test Item Value Reference Range Interpretation Comments POCT GLU (test code = 4608542153) 94 mg/dL 70-110 Lab Interpretation (test code = Normal 00689-7) [facility]2022-12-16 10:38:42 Test Item Value Reference Range Interpretation Comments HBsAB (test code = Indeterminate 8359733036) HBsAb 8.40 mIU/mL Semi-Quantitative (test code = 7677063381) BRAD (test code = Unable to determine if BRAD) antibody to Hepatitis B Surface Antigen is present at levels consistent with immunity. ?Patient's immune status should be assessed with other clinical information and/or retesting in 4-6 weeks as clinically indicated. ?If any questions, please contact Clinical Chemistry Director public relations specialist at .Interpretati on: ?Hepatitis B Surface Antibody ? Negative - Patient is considered to be not immune to infection with HBV. ? ? Positive - Anti-HBs detected at greater than or equal to 12 mIU/mL. ?Patient is considered to be immune to infection with HBV. ? [facility]22-12-16 10:38:42 Test Item Value Reference Range Interpretation Comments HBsAB (test code = Indeterminate 7163485141) HBsAb 8.40 mIU/mL Semi-Quantitative (test code = 8446191356) BRAD (test code = Unable to determine if BRAD) antibody to Hepatitis B Surface Antigen is present at levels consistent with immunity. ?Patient's immune status should be assessed with other clinical information and/or retesting in 4-6 weeks as clinically indicated. ?If any questions, please contact Clinical Chemistry Director public relations specialist at .Interpretati on: ?Hepatitis B Surface Antibody ? Negative - Patient is considered to be not immune to infection with HBV. ? ? Positive - Anti-HBs detected at greater than or equal to 12 mIU/mL. ?Patient is considered to be immune to infection with HBV. ? [facility] WITH [id number] 10:21:46 Test Item Value Reference Range Interpretation Comments WBC (test code = 15.75 See_Comment H [Automated 0799-2) message] The system which generated this result transmit matthew reference range : 4.30 - 11.10 10*3/?L. The reference range was not used to interpret this result as normal/abnormal . RBC (test code = 2.60 See_Comment L [Automated 287-8) message] The system which generated this result [...] (test code = 52.0 fL 39.0-49.9 H 20896-5) RDW-CV (test code = 15.7 % 12.0-15.5 H 788-0) PLT (test code = 144 See_Comment L [Automated 777-3) message] The system which generated this result transmit matthew reference range : 166 - 358 10*3/ ?L. The reference range was not u sed to interpret th is result as normal/abnormal . MPV (test code = 9.4 fL 9.5-12.9 L 66173-8) NRBC/100 WBC (test 0.0 See_Comment [Automat ed code = 0419158297) message] The system which generated this result transmit matthew reference range : 0.0 - 10.0 /100 WBCs. The reference range was not used to interpret this result as normal/abnormal . NRBC x10^3 (test code See_Comment [Auto mated = 0992091582) message] The system which generated this result transmit matthew reference range : 10*3/?L. The reference range was not used to interpret this result as normal/abnormal . GRAN MAT (NEUT) % 88.9 % (test code = 770-8) IMM GRAN % (test code 0.80 % = 7651077397) LYMPH % (test code = 5.8 % 736-9) MONO % (test code = 3.6 % 5905-5) EOS % (test code = 0.8 % 713-8) BASO % (test code = 0.1 % 706-2) GRAN MAT x10^3(ANC) 13.99 10*3/uL 1.88-7.09 H (test code = 4339618959) IMM GRAN x10^3 (test 0.13 10*3/uL 0.00-0.06 H code = 1481556760) LYMPH x10^3 (test code 0.92 10*3/uL 1.32-3.29 L = 731-0) MONO x10^3 (test code 0.56 10*3/uL 0.33-0.92 = 742-7) EOS x10^3 (test code = 0.13 10*3/uL 0.03-0.39 711-2) BASO x10^3 (test code 0.01-0.07 = 704-7) Lab Interpretation Abnormal (test code = 09939-5) [facility] WITH [id number] 10:21:46 Test Item Value Reference Range Interpretation [...] (test code = 52.0 fL 39.0-49.9 H 11019-1) RDW-CV (test code = 15.7 % 12.0-15.5 H 788-0) PLT (test code = 144 See_Comment L [Automated 777-3) message] The system which generated this result transmit matthew reference range : 166 - 358 10*3/ ?L. The reference range was not u sed to interpret th is result as normal/abnormal . MPV (test code = 9.4 fL 9.5-12.9 L 42603-9) NRBC/100 WBC (test 0.0 See_Comment [Automat ed code = 5950374345) message] The system which generated this result transmit matthew reference range : 0.0 - 10.0 /100 WBCs. The reference range was not used to interpret this result as normal/abnormal . NRBC x10^3 (test code See_Comment [Auto mated = 8421360657) message] The system which generated this result transmit matthew reference range : 10*3/?L. The reference range was not used to interpret this result as normal/abnormal . GRAN MAT (NEUT) % 88.9 % (test code = 770-8) IMM GRAN % (test code 0.80 % = 0465431321) LYMPH % (test code = 5.8 % 736-9) MONO % (test code = 3.6 % 5905-5) EOS % (test code = 0.8 % 713-8) BASO % (test code = 0.1 % 706-2) GRAN MAT x10^3(ANC) 13.99 10*3/uL 1.88-7.09 H (test code = 3859897513) IMM GRAN x10^3 (test 0.13 10*3/uL 0.00-0.06 H code = 8113105241) LYMPH x10^3 (test code 0.92 10*3/uL 1.32-3.29 L = 731-0) MONO x10^3 (test code 0.56 10*3/uL 0.33-0.92 = 742-7) EOS x10^3 (test code = 0.13 10*3/uL 0.03-0.39 711-2) BASO x10^3 (test code 0.01-0.07 = 704-7) Lab Interpretation Abnormal (test code = 09024-4) [facility] B Surface Antigen (HBsAg)2022-12-16 06:57:04 Test Item Value Reference Range Interpretation Comments HBsAg Semi-Quantitative (test code = 0.06 Negative 5195-3) [facility] B Surface Antigen (HBsAg)2022-12-16 06:57:04 Test Item Value Reference Range Interpretation Comments HBsAg Semi-Quantitative (test code = 0.06 Negative 5195-3) [facility] GLUCOSE (AUTOMATED)2022-12-16 05:30:23 Test Item Value Reference Range Interpretation Comments POCT GLU (test code = 0104485299) 75 mg/dL 70-110 Lab Interpretation (test code = Normal 73534-2) [facility] GLUCOSE (AUTOMATED)2022-12-16 05:30:23 Test Item Value Reference Range Interpretation Comments POCT GLU (test code = 5944531775) 75 mg/dL 70-110 Lab Interpretation (test code = Normal 20327-6) [facility] [id number] 23:05:10 Test Item Value Reference Range Interpretation Comments TROPONIN I (test code = 0.088 ng/mL <=0.034 H 5602511752) BRAD (test code = BRAD) Reference (Normal) [...] biotin. Lab Interpretation Abnormal (test code = 02186-1) [facility] [id number] 23:05:10 Test Item Value Reference Range Interpretation Comments TROPONIN I (test code = 0.088 ng/mL <=0.034 H 9394629821) BRAD (test code = BRAD) Reference (Normal) [...] biotin. Lab Interpretation Abnormal (test code = 91851-5) [facility] GLUCOSE (AUTOMATED)2022-12-15 23:02:20 Test Item Value Reference Range Interpretation Comments POCT GLU (test code = 4286402050) 166 mg/dL 70-110 H Lab Interpretation (test code = Abnormal 87059-6) [facility] GLUCOSE (AUTOMATED)2022-12-15 23:02:20 Test Item Value Reference Range Interpretation Comments POCT GLU (test code = 3499694111) 166 mg/dL 70-110 H Lab Interpretation (test code = Abnormal 75242-5) [facility] Packed RBC (in units), 1 Units 2022-12-15 22:05:53 Test Item Value Reference Range Interpretation Comments Cross Match Result Compatible (test code = 4409) ISBT Blood Type Code 6200 (test code = 686960) Unit Blood Type (test A Pos code = 4410) Unit Number (test [id number] code = 4411) Blood Expiration Date & Time (test code = 449326) Status Information Issued (test code = 4412) Product Red Blood Cells Identification (test code = 4413) Product Code (test M0240K51 Performed at [facility] code = 4414) Laboratory Services - [facility] Blood [address] [place], [place] [id number] Free: [phone] A No. [id number] [facility] Packed RBC (in units), 1 Units 2022-12-15 22:05:53 Test Item Value Reference Range Interpretation Comments Cross Match Result Compatible (test code = 4409) ISBT Blood Type Code 6200 (test code = 868073) Unit Blood Type (test A Pos code = 4410) Unit Number (test [id number] code = 4411) Blood Expiration Date & Time (test code = 277604) Status Information Issued (test code = 4412) Product Red Blood Cells Identification (test code = 4413) Product Code (test W1504R82 Performed at [facility] code = 4414) Laboratory Services - [facility] Blood [address] [place] [id number] Free: [phone] A No. [id number] General acute hospital POSITIVE BLOOD PATHOGENS DNA [id number] 21:12:06 Test Item Value Reference Range Interpretation Comments Staphylococcus aureus Positive Negative, See A (test code = 53466-5) Comment/Narrativ e mecA (test code = Negative Negative, See 29748-2) Comment/Narrativ e BRAD (test code = BRAD) MSSA detected by DNA probe. ?See blood culture result for additional susceptibilityInformati on. Preferred therapies for MSSA ?bacteremia are nafcillin or cefazolin.Infectious Diseases consultation recommended. Please contact the Antimicrobial Stewardship Program with questions.ASP Pager: ?[phone] Testing included eleven identification and three resistance marker targets. See blood culture result for additional information. Testing included eleven identification and three resistancemarker targets. Lab Interpretation Abnormal (test code = 67163-3) [facility] DNA [id number] 21:12:06 Test Item Value Reference Range Interpretation Comments Staphylococcus aureus Positive Negative, See A (test code = 41165-9) Comment/Narrativ e mecA (test code = Negative Negative, See 50257-8) Comment/Narrativ e BRAD (test code = BRAD) MSSA detected by DNA probe. ?See blood culture result for additional susceptibilityInformati on. Preferred therapies for MSSA ?bacteremia are nafcillin or cefazolin.Infectious Diseases consultation recommended. Please contact the Antimicrobial Stewardship Program with questions.ASP Pager: ?[phone] Testing included eleven identification and three resistance marker targets. See blood culture result for additional information. Testing included eleven identification and three resistancemarker targets. Lab Interpretation Abnormal (test code = 36926-3) [facility] GLUCOSE (AUTOMATED)2022-12-15 17:59:51 Test Item Value Reference Range Interpretation Comments POCT GLU (test code = 4731705080) 88 mg/dL 70-110 Lab Interpretation (test code = Normal 72326-9) [facility] GLUCOSE (AUTOMATED)2022-12-15 17:59:51 Test Item Value Reference Range Interpretation Comments POCT GLU (test code = 6276934993) 88 mg/dL 70-110 Lab Interpretation (test code = Normal 25468-0) [id number] 12:38:38 Test Item Value Reference Range Interpretation Comments NT-proBNP (test code = 23917 pg/mL <=125 H 2130908026) BRAD (test code = BRAD) Biotin has been reported to cause a negative bias, interpret results relative to patient's use of biotin. Lab Interpretation (test Abnormal code = 23638-9) [facility] [id number] 12:38:38 Test Item Value Reference Range Interpretation Comments NT-proBNP (test code = 61454 pg/mL <=125 H 3738763371) BRAD (test code = BRAD) Biotin has been reported to cause a negative bias, interpret results relative to patient's use of biotin. Lab Interpretation (test Abnormal code = 06035-1) [facility] WITH [id number] 12:16:32 Test Item Value Reference Range Interpretation [...] (test code = 51.8 fL 39.0-49.9 H 20269-7) RDW-CV (test code = 15.6 % 12.0-15.5 H 788-0) PLT (test code = 174 See_Comment [Automated 777-3) message] The system which generated this result transmitted reference range : 166 - 358 10*3/?L. The reference range was not used to interpret this result as normal/abnormal . MPV (test code = 9.0 fL 9.5-12.9 L 27306-3) NRBC/100 WBC (test 0.0 See_Comment [Automat ed code = 1863325616) message] The system which generated this result transmitted reference range : 0.0 - 10.0 /100 WBCs. The reference range was not used to interpret this result as normal/abnormal . NRBC x10^3 (test code See_Comment [Auto mated = 2033194082) message] The system which generated this result transmitted reference range : 10*3/?L. The reference range was not used to interpret this result as normal/abnormal . GRAN MAT (NEUT) % 94.9 % (test code = 770-8) IMM GRAN % (test code 0.90 % = 1942263368) LYMPH % (test code = 1.3 % 736-9) MONO % (test code = 2.4 % 5905-5) EOS % (test code = 0.2 % 713-8) BASO % (test code = 0.3 % 706-2) GRAN MAT x10^3(ANC) 28.43 10*3/uL 1.88-7.09 H (test code = 6727824144) IMM GRAN x10^3 (test 0.27 10*3/uL 0.00-0.06 H code = 9773339304) LYMPH x10^3 (test 0.38 10*3/uL 1.32-3.29 L code = 731-0) MONO x10^3 (test code 0.72 10*3/uL 0.33-0.92 = 742-7) EOS x10^3 (test code 0.07 10*3/uL 0.03-0.39 = 711-2) BASO x10^3 (test code 0.08 10*3/uL 0.01-0.07 H = 704-7) POLYCHROMASIA (test 2+ See_Comment [Automa matthew code = 05451-6) message] The system which generated this result transmitted reference range : 2+. The referen ce range was not used to interpr et this result as normal/abnormal . BANDS (test code = MARKED INCREASED A 7079097412) DOHLE BODIES (test Present A code = 7792-5) TOXIC CHANGES (test Present A code = 803-7) GIANT PLATELETS (test Present See_Comment A [Auto mated code = 5908-9) message] The system which generated this result transmitted reference range : (none). The reference range was not used to interpret this result as normal/abnormal . Lab Interpretation Abnormal (test code = 80416-8) [facility] WITH [id number] 12:16:32 Test Item Value Reference Range Interpretation Comments WBC (test code = 29.95 See_Comment H [Automated 0290-2) message] The system which generated this result transmitted reference range : 4.30 - 11.10 10*3/?L. The reference range was not used to interpret this result as normal/abnormal . RBC (test code = 2.56 See_Comment L [Automated 919-8) message] The system which generated this result [...] (test code = 51.8 fL 39.0-49.9 H 32961-7) RDW-CV (test code = 15.6 % 12.0-15.5 H 788-0) PLT (test code = 174 See_Comment [Automated 777-3) message] The system which generated this result transmitted reference range : 166 - 358 10*3/?L. The reference range was not used to interpret this result as normal/abnormal . MPV (test code = 9.0 fL 9.5-12.9 L 06291-7) NRBC/100 WBC (test 0.0 See_Comment [Automat ed code = 1281315516) message] The system which generated this result transmitted reference range : 0.0 - 10.0 /100 WBCs. The reference range was not used to interpret this result as normal/abnormal . NRBC x10^3 (test code See_Comment [Auto mated = 7078387539) message] The system which generated this result transmitted reference range : 10*3/?L. The reference range was not used to interpret this result as normal/abnormal . GRAN MAT (NEUT) % 94.9 % (test code = 770-8) IMM GRAN % (test code 0.90 % = 8187330395) LYMPH % (test code = 1.3 % 736-9) MONO % (test code = 2.4 % 5905-5) EOS % (test code = 0.2 % 713-8) BASO % (test code = 0.3 % 706-2) GRAN MAT x10^3(ANC) 28.43 10*3/uL 1.88-7.09 H (test code = 9857482006) IMM GRAN x10^3 (test 0.27 10*3/uL 0.00-0.06 H code = 7258797661) LYMPH x10^3 (test 0.38 10*3/uL 1.32-3.29 L code = 731-0) MONO x10^3 (test code 0.72 10*3/uL 0.33-0.92 = 742-7) EOS x10^3 (test code 0.07 10*3/uL 0.03-0.39 = 711-2) BASO x10^3 (test code 0.08 10*3/uL 0.01-0.07 H = 704-7) POLYCHROMASIA (test 2+ See_Comment [Automa matthew code = 85658-0) message] The system which generated this result transmitted reference range : 2+. The referen ce range was not used to interpr et this result as normal/abnormal . BANDS (test code = MARKED INCREASED A 2799763889) DOHLE BODIES (test Present A code = 7792-5) TOXIC CHANGES (test Present A code = 803-7) GIANT PLATELETS (test Present See_Comment A [Auto mated code = 5908-9) message] The system which generated this result transmitted reference range : (none). The reference range was not used to interpret this result as normal/abnormal . Lab Interpretation Abnormal (test code = 80758-0) [facility] [id number] 12:05:11 Test Item Value Reference Range Interpretation Comments TROPONIN I (test code = 0.096 ng/mL <=0.034 H 1279901511) BRAD (test code = BRAD) Reference (Normal) [...] biotin. Lab Interpretation Abnormal (test code = 30303-3) [facility] [id number] 12:05:11 Test Item Value Reference Range Interpretation Comments TROPONIN I (test code = 0.096 ng/mL <=0.034 H 8543831036) BRAD (test code = BRAD) Reference (Normal) [...] biotin. Lab Interpretation Abnormal (test code = 57942-6) [facility] METABOLIC PANEL (NA, K, CL, CO2, GLUCOSE, BUN, CREATININE, CA)2022-12-15 11:53:07 Test Item Value Reference Range Interpretation Comments NA (test code = 139 mmol/L 135-145 0555998469) K (test code = 3.6 mmol/L 3.5-5.0 4801303501) CL (test code = 104 mmol/L 98-108 8030324991) CO2 TOTAL (test code = 19 mmol/L 23-31 L 5695891128) AGAP (test code = 16 2-16 0166113847) BUN (test code = 41 mg/dL 7-23 H 6158263494) GLUCOSE (test code = 85 mg/dL 70-110 3383736432) CREATININE (test code = 3.85 mg/dL 0.50-1.04 H 6113901748) CALCIUM (test code = 8.9 mg/dL 8.6-10.6 5394839606) eGFR (test code = 11.7 mL/min/1.73m2 7389490644) BRAD (test code = BRAD) Association of [...] tests). Lab Interpretation Abnormal (test code = 23357-5) [facility]:07 Test Item Value Reference Range Interpretation Comments MAGNESIUM (test code = 1777587427) 1.9 mg/dL 1.7-2.4 Lab Interpretation (test code = Normal 42939-4) [facility] (NA, K, CL, CO2, GLUCOSE, BUN, CREATININE, CA)2022-12-15 11:53:07 Test Item Value Reference Range Interpretation Comments NA (test code = 139 mmol/L 135-145 9394186268) K (test code = 3.6 mmol/L 3.5-5.0 4219481696) CL (test code = 104 mmol/L 98-108 8063158515) CO2 TOTAL (test code = 19 mmol/L 23-31 L 4166657579) AGAP (test code = 16 2-16 2640160627) BUN (test code = 41 mg/dL 7-23 H 4161366335) GLUCOSE (test code = 85 mg/dL 70-110 2345881428) CREATININE (test code = 3.85 mg/dL 0.50-1.04 H 8258409444) CALCIUM (test code = 8.9 mg/dL 8.6-10.6 3691021225) eGFR (test code = 11.7 mL/min/1.73m2 9135826808) BRAD (test code = BRAD) Association of [...] tests). Lab Interpretation Abnormal (test code = 14386-1) [facility]07 Test Item Value Reference Range Interpretation Comments MAGNESIUM (test code = 2942290420) 1.9 mg/dL 1.7-2.4 Lab Interpretation (test code = Normal 08089-2) [facility] 11[facility]52:47 Test Item Value Reference Range Interpretation Comments PHOSPHORUS (test code = 9700945110) 4.8 mg/dL 2.5-5.0 Lab Interpretation (test code = Normal 92789-2) [facility] 11:52:47 Test Item Value Reference Range Interpretation Comments PHOSPHORUS (test code = 4298825750) 4.8 mg/dL 2.5-5.0 Lab Interpretation (test code = Normal 84483-2) [facility] 11:52:06 Test Item Value Reference Range Interpretation Comments LIPASE (test code = 2225114656) 39 U/L 0-220 Lab Interpretation (test code = Normal 51391-3) [facility] 11[facility]52:06 Test Item Value Reference Range Interpretation Comments LIPASE (test code = 9851813626) 39 U/L 0-220 Lab Interpretation (test code = Normal 26332-8) [facility] GLUCOSE (AUTOMATED)2022-12-15 10:44:05 Test Item Value Reference Range Interpretation Comments POCT GLU (test code = 6463185869) 95 mg/dL 70-110 Lab Interpretation (test code = Normal 46979-9) [facility] GLUCOSE (AUTOMATED)2022-12-15 10:44:05 Test Item Value Reference Range Interpretation Comments POCT GLU (test code = 2864899281) 95 mg/dL 70-110 Lab Interpretation (test code = Normal 92450-7) [facility] [id number] 07:17:20 Test Item Value Reference Range Interpretation Comments LACTIC ACID (test code = 1.81 mmol/L 0.50-2.20 1133971435) Lab Interpretation (test code = Normal 59774-7) [facility] [id number] 07:17:20 Test Item Value Reference Range Interpretation Comments LACTIC ACID (test code = 1.81 mmol/L 0.50-2.20 2381962278) Lab Interpretation (test code = Normal 72382-5) [facility] GLUCOSE (AUTOMATED)2022-12-15 05:00:50 Test Item Value Reference Range Interpretation Comments POCT GLU (test code = 9231433845) 122 mg/dL 70-110 H Lab Interpretation (test code = Abnormal 56942-4) [facility] GLUCOSE (AUTOMATED)2022-12-15 05:00:50 Test Item Value Reference Range Interpretation Comments POCT GLU (test code = 7896501947) 122 mg/dL 70-110 H Lab Interpretation (test code = Abnormal 95059-4) [facility] 04:49:26 Test Item Value Reference Range Interpretation Comments MAGNESIUM (test code = 1345707310) 2.0 mg/dL 1.7-2.4 Lab Interpretation (test code = Normal 79756-3) [facility] 04:49:26 Test Item Value Reference Range Interpretation Comments MAGNESIUM (test code = 7214821884) 2.0 mg/dL 1.7-2.4 Lab Interpretation (test code = Normal 57170-3) [facility] [id number] 00:09:11 Test Item Value Reference Range Interpretation Comments NT-proBNP (test code = 40679 pg/mL <=125 H 8891913648) BRAD (test code = BRAD) Biotin has been reported to cause a negative bias, interpret results relative to patient's use of biotin. Lab Interpretation (test Abnormal code = 44411-7) [facility] [id number] 00:09:11 Test Item Value Reference Range Interpretation Comments NT-proBNP (test code = 37956 pg/mL <=125 H 8360246935) BRAD (test code = BRAD) Biotin has been reported to cause a negative bias, interpret results relative to patient's use of biotin. Lab Interpretation (test Abnormal code = 53726-7) [facility] [id number] 23:53:13 Test Item Value Reference Range Interpretation Comments TROPONIN I (test code = 0.049 ng/mL <=0.034 H 7544122894) BRAD (test code = BRAD) Reference (Normal) [...] biotin. Lab Interpretation Abnormal (test code = 21350-2) [facility] [id number] 23:53:13 Test Item Value Reference Range Interpretation Comments TROPONIN I (test code = 0.049 ng/mL <=0.034 H 2240053392) BRAD (test code = BRAD) Reference (Normal) [...] biotin. Lab Interpretation Abnormal (test code = 44427-3) [facility]. METABOLIC PANEL (89375)2022-12-14 23:39:49 Test Item Value Reference Range Interpretation Comments NA (test code = 138 mmol/L 135-145 4769525638) K (test code = 3.3 mmol/L 3.5-5.0 L 7883807178) CL (test code = 100 mmol/L 98-108 5647133845) CO2 TOTAL (test code = 24 mmol/L 23-31 8523987405) AGAP (test code = 14 2-16 2626398840) BUN (test code = 34 mg/dL 7-23 H 8277747247) GLUCOSE (test code = 225 mg/dL 70-110 H 7309265564) CREATININE (test code = 3.54 mg/dL 0.50-1.04 H 7889373503) TOTAL BILI (test code = 0.9 mg/dL 0.1-1.0 1783877547) CALCIUM (test code = 9.3 mg/dL 8.6-10.6 4320224719) T PROTEIN (test code = 6.4 g/dL 6.3-8.2 0361981164) ALBUMIN (test code = 3.2 g/dL 3.5-5.0 L 6243509664) ALK PHOS (test code = 162 U/L 34-122 H 0905827480) ALTv (test code = 19 U/L 5-35 1742-6) AST(SGOT) (test code = 24 U/L 13-40 6878547812) eGFR (test code = 12.9 mL/min/1.73m2 5350551819) BRAD (test code = BRAD) Association of [...] tests). Lab Interpretation Abnormal (test code = 15676-5) [facility]. METABOLIC PANEL (38355)2022-12-14 23:39:49 Test Item Value Reference Range Interpretation Comments NA (test code = 138 mmol/L 135-145 0844231288) K (test code = 3.3 mmol/L 3.5-5.0 L 5931563003) CL (test code = 100 mmol/L 98-108 9039419631) CO2 TOTAL (test code = 24 mmol/L 23-31 4237160520) AGAP (test code = 14 2-16 9549829410) BUN (test code = 34 mg/dL 7-23 H 2211104813) GLUCOSE (test code = 225 mg/dL 70-110 H 7413716761) CREATININE (test code = 3.54 mg/dL 0.50-1.04 H 2246863759) TOTAL BILI (test code = 0.9 mg/dL 0.1-1.4 8871556637) CALCIUM (test code = 9.3 mg/dL 8.6-10.6 1973794433) T PROTEIN (test code = 6.4 g/dL 6.3-8.2 4230228610) ALBUMIN (test code = 3.2 g/dL 3.5-5.0 L 3599177565) ALK PHOS (test code = 162 U/L 34-122 H 9457138561) ALTv (test code = 19 U/L 5-35 2-6) AST(SGOT) (test code = 24 U/L 13-40 3354844836) eGFR (test code = 12.9 mL/min/1.73m2 3017038932) BRAD (test code = BRAD) Association of [...] tests). Lab Interpretation Abnormal (test code = 51901-6) [facility]08 Test Item Value Reference Range Interpretation Comments LIPASE (test code = 8975665592) 414 U/L 0-220 H Lab Interpretation (test code = Abnormal 18480-2) [facility] 23:39:08 Test Item Value Reference Range Interpretation Comments LIPASE (test code = 2117428785) 414 U/L 0-220 H Lab Interpretation (test code = Abnormal 95131-3) [facility] [id number] 23:28:05 Test Item Value Reference Range Interpretation Comments WBC (test code = 14.88 See_Comment H [Automated 1390-2) message] The system which generated this result [...] (test code = 50.1 fL 39.0-49.9 H 08845-7) RDW-CV (test code = 15.0 % 12.0-15.5 788-0) PLT (test code = 207 See_Comment [Automated 777-3) message] The system which generated this result transmit matthew reference range : 166 - 358 10*3/ ?L. The reference range was not u sed to interpret th is result as normal/abnormal . MPV (test code = 9.0 fL 9.5-12.9 L 58860-7) NRBC/100 WBC (test 0.0 See_Comment [Automat ed code = 6947731220) message] The system which generated this result transmit matthew reference range : 0.0 - 10.0 /100 WBCs. The reference range was not used to interpret this result as normal/abnormal . NRBC x10^3 (test code See_Comment [Auto mated = 3130389348) message] The system which generated this result transmit matthew reference range : 10*3/?L. The reference range was not used to interpret this result as normal/abnormal . GRAN MAT (NEUT) % 95.6 % (test code = 770-8) IMM GRAN % (test code 0.60 % = 0723130131) LYMPH % (test code = 1.9 % 736-9) MONO % (test code = 1.0 % 5905-5) EOS % (test code = 0.7 % 713-8) BASO % (test code = 0.2 % 706-2) GRAN MAT x10^3(ANC) 14.21 10*3/uL 1.88-7.09 H (test code = 1402310780) IMM GRAN x10^3 (test 0.09 10*3/uL 0.00-0.06 H code = 0393703384) LYMPH x10^3 (test code 0.29 10*3/uL 1.32-3.29 L = 731-0) MONO x10^3 (test code 0.15 10*3/uL 0.33-0.92 L = 742-7) EOS x10^3 (test code = 0.11 10*3/uL 0.03-0.39 711-2) BASO x10^3 (test code 0.03 10*3/uL 0.01-0.07 = 704-7) Lab Interpretation Abnormal (test code = 88778-3) [facility] WITH [id number] 23:28:05 Test Item Value Reference Range Interpretation [...] (test code = 50.1 fL 39.0-49.9 H 69623-1) RDW-CV (test code = 15.0 % 12.0-15.5 788-0) PLT (test code = 207 See_Comment [Automated 777-3) message] The system which generated this result transmit matthew reference range : 166 - 358 10*3/ ?L. The reference range was not u sed to interpret th is result as normal/abnormal . MPV (test code = 9.0 fL 9.5-12.9 L 97353-6) NRBC/100 WBC (test 0.0 See_Comment [Automat ed code = 6095853597) message] The system which generated this result transmit matthew reference range : 0.0 - 10.0 /100 WBCs. The reference range was not used to interpret this result as normal/abnormal . NRBC x10^3 (test code See_Comment [Auto mated = 2438487488) message] The system which generated this result transmit matthew reference range : 10*3/?L. The reference range was not used to interpret this result as normal/abnormal . GRAN MAT (NEUT) % 95.6 % (test code = 770-8) IMM GRAN % (test code 0.60 % = 8811219684) LYMPH % (test code = 1.9 % 736-9) MONO % (test code = 1.0 % 5905-5) EOS % (test code = 0.7 % 713-8) BASO % (test code = 0.2 % 706-2) GRAN MAT x10^3(ANC) 14.21 10*3/uL 1.88-7.09 H (test code = 9228983318) IMM GRAN x10^3 (test 0.09 10*3/uL 0.00-0.06 H code = 1183830789) LYMPH x10^3 (test code 0.29 10*3/uL 1.32-3.29 L = 731-0) MONO x10^3 (test code 0.15 10*3/uL 0.33-0.92 L = 742-7) EOS x10^3 (test code = 0.11 10*3/uL 0.03-0.39 711-2) BASO x10^3 (test code 0.03 10*3/uL 0.01-0.07 = 704-7) Lab Interpretation Abnormal (test code = 02289-2) [facility] Acid Whole [id number] 22:59:07 Test Item Value Reference Range Interpretation Comments LACTIC ACID (test code = 1.80 mmol/L 0.50-2.20 9568743440) Lab Interpretation (test code = Normal 55288-8) [facility] Acid Whole [id number] 22:59:07 Test Item Value Reference Range Interpretation Comments LACTIC ACID (test code = 1.80 mmol/L 0.50-2.20 7505900934) Lab Interpretation (test code = Normal 87020-3) [facility] GLUCOSE (AUTOMATED)2022-12-14 22:56:50 Test Item Value Reference Range Interpretation Comments POCT GLU (test code = 2228558396) 235 mg/dL 70-110 H Lab Interpretation (test code = Abnormal 39698-9) [facility] GLUCOSE (AUTOMATED)2022-12-14 22:56:50 Test Item Value Reference Range Interpretation Comments POCT GLU (test code = 0377098881) 235 mg/dL 70-110 H Lab Interpretation (test code = Abnormal 14774-3) [facility] GLUCOSE (AUTOMATED)2022-11-07 21:58:54 Test Item Value Reference Range Interpretation Comments POCT GLU (test code = 9911792123) 184 mg/dL 70-110 H Lab Interpretation (test code = Abnormal 49102-1) [facility] GLUCOSE (AUTOMATED)2022-11-07 16:45:57 Test Item Value Reference Range Interpretation Comments POCT GLU (test code = 1851701227) 196 mg/dL 70-110 H Lab Interpretation (test code = Abnormal 23143-4) [facility] GLUCOSE (AUTOMATED)2022-11-07 13:12:51 Test Item Value Reference Range Interpretation Comments POCT GLU (test code = 3372245303) 164 mg/dL 70-110 H Lab Interpretation (test code = Abnormal 71193-5) [facility] 23:00:28 Test Item Value Reference Range Interpretation Comments HBsAB (test code = Indeterminate 4286637701) HBsAb 6.20 mIU/mL Semi-Quantitative (test code = 6864340715) BRAD (test code = Unable to determine if BRAD) antibody to Hepatitis B Surface Antigen is present at levels consistent with immunity. ?Patient's immune status should be assessed with other clinical information and/or retesting in 4-6 weeks as clinically indicated. ?If any questions, please contact Clinical Chemistry Director public relations specialist at .Interpretati on: ?Hepatitis B Surface Antibody ? Negative - Patient is considered to be not immune to infection with HBV. ? ? Positive - Anti-HBs detected at greater than or equal to 12 mIU/mL. ?Patient is considered to be immune to infection with HBV. ? [facility] GLUCOSE (AUTOMATED)2022-11-06 21:40:13 Test Item Value Reference Range Interpretation Comments POCT GLU (test code = 9715831013) 180 mg/dL 70-110 H Lab Interpretation (test code = Abnormal 97272-3) [facility] B Surface Antigen (HBsAg)2022-11-06 20:40:07 Test Item Value Reference Range Interpretation Comments HBsAg Semi-Quantitative (test code = 0.21 Negative 5195-3) [facility] GLUCOSE (AUTOMATED)2022-11-06 16:28:02 Test Item Value Reference Range Interpretation Comments POCT GLU (test code = 6653198722) 177 mg/dL 70-110 H Lab Interpretation (test code = Abnormal 07525-3) [facility] [id number] 15:24:24 Test Item Value Reference Range Interpretation Comments TROPONIN I (test code = 0.047 ng/mL <=0.034 H 1410566920) BRAD (test code = BRAD) Reference (Normal) [...] biotin. Lab Interpretation Abnormal (test code = 61586-6) [facility] GLUCOSE (AUTOMATED)2022-11-06 12:43:24 Test Item Value Reference Range Interpretation Comments POCT GLU (test code = 6307106493) 158 mg/dL 70-110 H Lab Interpretation (test code = Abnormal 74512-2) [facility] GLUCOSE (AUTOMATED)2022-11-06 01:41:32 Test Item Value Reference Range Interpretation Comments POCT GLU (test code = 7143529684) 218 mg/dL 70-110 H Lab Interpretation (test code = Abnormal 12781-7) [facility] GLUCOSE (AUTOMATED)2022-11-05 22:03:11 Test Item Value Reference Range Interpretation Comments POCT GLU (test code = 1259264774) 156 mg/dL 70-110 H Lab Interpretation (test code = Abnormal 31270-9) [facility] GLUCOSE (AUTOMATED)2022-11-05 16:40:51 Test Item Value Reference Range Interpretation Comments POCT GLU (test code = 9668152972) 197 mg/dL 70-110 H Lab Interpretation (test code = Abnormal 41109-7) [facility] GLUCOSE (AUTOMATED)2022-11-05 12:59:19 Test Item Value Reference Range Interpretation Comments POCT GLU (test code = 6976713326) 126 mg/dL 70-110 H Lab Interpretation (test code = Abnormal 94313-6) [facility] [id number] 02:54:06 Test Item Value Reference Range Interpretation Comments TSH (test code = 2.59 See_Comment Biotin has been 7933004221) reported to cau se a negative bias, interpret resul ts relative to pat anant's use of biotin. [Automated mess age] The system 51wan generated this result transmitted ref erence range: 0.45 - 4 .70 mIU/L. The refe rence range was not u sed to interpret this result as normal/abnor mal. Lab Interpretation (test Normal code = 78179-8) [facility] [id number] 02:00:37 Test Item Value Reference Range Interpretation Comments FREE T4 (test code = 1.57 See_Comment [Autom ated message] 1672629388) The system 51wan generated this result transmitted ref erence range: 0.78 - 2 .20 ng/dL:. The ref erence range was not u sed to interpret this result as normal/abnor mal. Lab Interpretation (test Normal code = 87416-3) [facility] [id number] 02:00:17 Test Item Value Reference Range Interpretation Comments FREE T3 (test code = 9153378630) 3.61 pg/mL 2.77-5.27 Lab Interpretation (test code = Normal 82106-7) [facility] (A1C)2022-11-05 01:49:39 Test Item Value Reference Range Interpretation Comments HGB A1C (test code = 4.7 % 4.0-5.7 4548-4) BRAD (test code = BRAD) Reference RangesNormal: <5.7%Prediabetes: 5.7 - 6.4%Diabetes: > 6.5% Lab Interpretation (test Normal code = 22752-3) [facility]CREAT[facility] [id number] 21:11:09 Test Item Value Reference Range Interpretation Comments CK (test code = 5452171583) 24 U/L 33-194 L Lab Interpretation (test code = Abnormal 93079-1) [facility] [id number] 21:01:09 Test Item Value Reference Range Interpretation Comments NT-proBNP (test code = 45044 pg/mL <=125 H 6518823729) BRAD (test code = BRAD) Biotin has been reported to cause a negative bias, interpret results relative to patient's use of biotin. Lab Interpretation (test Abnormal code = 41123-5) [facility] [id number] 20:42:28 Test Item Value Reference Range Interpretation Comments TROPONIN I (test code = 0.054 ng/mL <=0.034 H 4933984041) BRAD (test code = BRAD) Reference (Normal) [...] biotin. Lab Interpretation Abnormal (test code = 24804-8) [facility]. METABOLIC PANEL (50619)2022-11-04 20:32:09 Test Item Value Reference Range Interpretation Comments NA (test code = 138 mmol/L 135-145 1071265784) K (test code = 3.0 mmol/L 3.5-5.0 L 7898738710) CL (test code = 106 mmol/L 98-108 3632827190) CO2 TOTAL (test code = 26 mmol/L 23-31 4557969497) AGAP (test code = 6 2-16 6686733399) BUN (test code = 18 mg/dL 7-23 1003182211) GLUCOSE (test code = 119 mg/dL 70-110 H 3761949111) CREATININE (test code = 2.18 mg/dL 0.50-1.04 H 5109459065) TOTAL BILI (test code = 0.6 mg/dL 0.1-1.6 3478991481) CALCIUM (test code = 9.2 mg/dL 8.6-10.6 9562699721) T PROTEIN (test code = 5.9 g/dL 6.3-8.2 L 7759195073) ALBUMIN (test code = 3.1 g/dL 3.5-5.0 L 1685323097) ALK PHOS (test code = 124 U/L 34-122 H 0342205436) ALTv (test code = 16 U/L 5-35 1742-6) AST(SGOT) (test code = 18 U/L 13-40 5220948631) eGFR (test code = 22.6 mL/min/1.73m2 4508738706) BRAD (test code = BRAD) Association of [...] tests). Lab Interpretation Abnormal (test code = 40709-7) [facility] Test Item Value Reference Range Interpretation Comments MAGNESIUM (test code = 6530751973) 2.1 mg/dL 1.7-2.4 Lab Interpretation (test code = Normal 37726-8) [facility] 20:31:49 Test Item Value Reference Range Interpretation Comments PHOSPHORUS (test code = 9489071943) 3.7 mg/dL 2.5-5.0 Lab Interpretation (test code = Normal 31539-1) [facility] [id number] 20:19:25 Test Item Value Reference Range Interpretation [...] (test code = 57.7 fL 39.0-49.9 H 74685-0) RDW-CV (test code = 16.7 % 12.0-15.5 H 788-0) PLT (test code = 235 See_Comment [Automated 777-3) message] The sy stem which generated this result transmitted reference range : 166 - 358 10*3/ ?L. The reference r chikis was not used to interpret this result as normal/abnormal . MPV (test code = 9.2 fL 9.5-12.9 L 02491-7) NRBC/100 WBC (test 0.0 See_Comment [Automat ed code = 6322793187) message] The system which generated this result transmitted reference range : 0.0 - 10.0 /100 WBCs. The refer ence range was not u sed to interpret th is result as normal/abnormal . NRBC x10^3 (test code See_Comment [Auto mated = 0232749645) message] The s ystem which generated this result transmitted reference range : 10*3/?L. The reference range was not used to interpret this result as normal/abnormal . GRAN MAT (NEUT) % 74.2 % (test code = 770-8) IMM GRAN % (test code 0.30 % = 6723651087) LYMPH % (test code = 12.4 % 736-9) MONO % (test code = 9.1 % 5905-5) EOS % (test code = 3.6 % 713-8) BASO % (test code = 0.4 % 706-2) GRAN MAT x10^3(ANC) 4.97 10*3/uL 1.88-7.09 (test code = 8378436056) IMM GRAN x10^3 (test 0.00-0.06 code = 9026439829) LYMPH x10^3 (test code 0.83 10*3/uL 1.32-3.29 L = 731-0) MONO x10^3 (test code 0.61 10*3/uL 0.33-0.92 = 742-7) EOS x10^3 (test code = 0.24 10*3/uL 0.03-0.39 711-2) BASO x10^3 (test code 0.03 10*3/uL 0.01-0.07 = 704-7) Lab Interpretation Abnormal (test code = 14719-7) [facility] [id number] 15:54:00 Test Item Value Reference Range Interpretation Comments GLUCOSE BEDSIDE (test 122 MG/DL 70-110 H Perfor med by certified code = GLUBED) 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 [facility] GLUCOSE [id number] 12:13:00 Test Item Value Reference Range Interpretation Comments GLUCOSE BEDSIDE (test 156 MG/DL 70-110 H Perfor med by certified code = GLUBED) 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 [facility] GLUCOSE [id number] 10:42:00 Test Item Value Reference Range Interpretation Comments GLUCOSE BEDSIDE (test 181 MG/DL 70-110 H Perfor med by certified code = GLUBED) 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 [facility] GLUCOSE [id number] 20:05:00 Test Item Value Reference Range Interpretation Comments GLUCOSE BEDSIDE (test 90 MG/DL 70-110 N Perfor med by certified code = GLUBED) 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 [facility] GLUCOSE [id number] 15:46:00 Test Item Value Reference Range Interpretation Comments GLUCOSE BEDSIDE (test 212 MG/DL 70-110 H Perfor med by certified code = GLUBED) 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 [facility] GLUCOSE [id number] 12:44:00 Test Item Value Reference Range Interpretation Comments GLUCOSE BEDSIDE (test 120 MG/DL 70-110 H Perfor med by certified code = GLUBED) 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 [facility] BASIC METABOLIC [id number] 08:34:00 Test Item Value Reference Range Interpretation [...] code = 9.5 mg/dL 8.0-10.5 N CA) [id number] 08:34:00 Test Item Value Reference Range Interpretation Comments PHOSPHOROUS (test code = PHOS) 2.3 MG/DL 2.5-4.9 L [id number] 08:34:00 Test Item Value Reference Range Interpretation Comments MAGNESIUM (test code = MAG) 2.18 mg/dL 1.80-2.40 N [id number] 08:29:00 Test Item Value Reference Range Interpretation Comments VANCOMYCIN (test code = VANCO) 20.2 mcg/mL CBC W/AUTO [id number] 08:27:00 Test Item Value Reference Range Interpretation [...] REQUIRED (test code NO = MDIFF) CALCIUM [id number] 08:20:00 Test Item Value Reference Range Interpretation Comments CALCIUM IONIZED (test code = AMILCAR) 1.21 MMOL/L 1.09-1.30 N GLUCOSE [id number] 05:39:00 Test Item Value Reference Range Interpretation Comments GLUCOSE BEDSIDE (test 175 MG/DL 70-110 H Perfor med by certified code = GLUBED) 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 [facility] GLUCOSE [id number] 20:49:00 Test Item Value Reference Range Interpretation Comments GLUCOSE BEDSIDE (test 167 MG/DL 70-110 H Perfor med by certified code = GLUBED) 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 [facility] GLUCOSE [id number] 17:03:00 Test Item Value Reference Range Interpretation Comments GLUCOSE BEDSIDE (test 127 MG/DL 70-110 H Perfor med by certified code = GLUBED) 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 [facility] GLUCOSE [id number] 11:54:00 Test Item Value Reference Range Interpretation Comments GLUCOSE BEDSIDE (test 177 MG/DL 70-110 H Perfor med by certified code = GLUBED) 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 [facility] GLUCOSE [id number] 06:39:00 Test Item Value Reference Range Interpretation Comments GLUCOSE BEDSIDE (test 153 MG/DL 70-110 H Perfor med by certified code = GLUBED) 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 [facility] GLUCOSE [id number] 19:51:00 Test Item Value Reference Range Interpretation Comments GLUCOSE BEDSIDE (test 165 MG/DL 70-110 H Perfor med by certified code = GLUBED) 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 [facility] GLUCOSE [id number] 17:15:00 Test Item Value Reference Range Interpretation Comments GLUCOSE BEDSIDE (test 188 MG/DL 70-110 H Perfor med by certified code = GLUBED) 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 [facility] GLUCOSE [id number] 12:16:00 Test Item Value Reference Range Interpretation Comments GLUCOSE BEDSIDE (test 132 MG/DL 70-110 H Perfor med by certified code = GLUBED) 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 [facility] GLUCOSE [id number] 10:20:00 Test Item Value Reference Range Interpretation Comments GLUCOSE BEDSIDE (test 131 MG/DL 70-110 H Perfor med by certified code = GLUBED) 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 [facility] CBC W/AUTO [id number] 08:33:00 Test Item Value Reference Range Interpretation [...] (test code NO = MDIFF) BASIC METABOLIC [id number] 07:37:00 Test Item Value Reference Range Interpretation [...] code = 10.1 mg/dL 8.0-10.5 N CA) [id number] 07:37:00 Test Item Value Reference Range Interpretation Comments PHOSPHOROUS (test code = PHOS) 3.4 MG/DL 2.5-4.9 N [id number] 07:37:00 Test Item Value Reference Range Interpretation Comments MAGNESIUM (test code = MAG) 2.31 mg/dL 1.80-2.40 [id number] 06:49:00 Test Item Value Reference Range Interpretation Comments VANCOMYCIN (test code = VANCO) 19.9 mcg/mL GLUCOSE [id number] 06:17:00 Test Item Value Reference Range Interpretation Comments GLUCOSE BEDSIDE (test 173 MG/DL 70-110 H Perfor med by certified code = GLUBED) 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 [facility] - NM BONE 3 [id number] 00:00:00 [facility] 1955 Sex: F FAX: Delmy Howell [phone] Scott: [facility]: [facility] FAX: Kasey Ochoa MD [phone] FAX: Jim Mazariegos MD [phone] FAX: Adonis Canchola MD [phone] Name: MESERET MOTTA [facility] : 1955 Age/S: 67/F [address] [place] [address] Unit #: [id number] Loc: G.4404 [place] [address] Phys: Kasey Mendez MD Acct: [id number] Dis Date: Status: ADM IN PHONE #: [phone] Exam Date: 07/04/20 22 1506 FAX #: [phone] Reason: left foot ulcers EXAMS: CPT CODE: [id number] NM BONE 3 PHASE 27896 PROCEDURE INFORMATION: Exam: NM Bone and/or Joint, [...] 1 Signed Report (CONTINUED) FAX: Delmy Howell [phone] Scott: St: ADM FAX: Kasey Ochoa MD [phone] FAX: Jim Mazariegos MD [phone] FAX: Adonis Canchola MD [phone] Name: HUBERT MOTTASHREYA Watson [facility] : 1955 Age/S: 67/F [address] [place] [address] Unit #: [id number] Loc: G.4[address] [place] [address] Phys: Kasey Mendez MD Acct: [id number] Dis Date: Status: ADM IN PHONE #: [phone] Exam Date: 07/04/2022 1506 FAX #: [phone] Reason: left foot ulcers EXAMS: CPT CODE: [id number] NM BONE 3 PHASE 01992 (Continued) noted on the left foot plain radiographs. at 1850 Reported and signed by: Gus Moura M.D. CC: Delmy Ashton MD; Kasey Mendez MD; Jim Dhillon MD; Adonis Gaytan MD Technologist: Joss Cobb, ARRT (N)(CT); ... Trnscrd Date/Time/By: 07/04/2022 (1849) : By: [email or web address] Orig Print D/T: S: 07/04/2022 (1849) PAGE 2 Signed ReportGLUCOSE [id number] 20:34:00 Test Item Value Reference Range Interpretation Comments GLUCOSE BEDSIDE (test 167 MG/DL 70-110 H Perfor med by certified code = GLUBED) 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 [facility] GLUCOSE [id number] 15:58:00 Test Item Value Reference Range Interpretation Comments GLUCOSE BEDSIDE (test 131 MG/DL 70-110 H Perfor med by certified code = GLUBED) 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 [facility] GLUCOSE [id number] 11:38:00 Test Item Value Reference Range Interpretation Comments GLUCOSE BEDSIDE (test 202 MG/DL 70-110 H Perfor med by certified code = GLUBED) 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 [facility] BASIC METABOLIC [id number] 08:17:00 Test Item Value Reference Range Interpretation [...] the recommended for bhumika for GFRby the [facility] Kidney Foundati on for Adults.The GFR will not calculate if th e sex is unknown or if thepatient's ag e is <18 years. CREATININE (test 4.5 mg/dL 0.6-1.3 H code = CREAT) CALCIUM (test code = 9.2 mg/dL 8.0-10.5 N CA) CBC W/AUTO [id number] 07:54:00 Test Item Value Reference Range Interpretation [...] REQUIRED (test code NO = MDIFF) GLUCOSE [id number] 05:40:00 Test Item Value Reference Range Interpretation Comments GLUCOSE BEDSIDE (test 170 MG/DL 70-110 H Perfor med by certified code = GLUBED) 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 [facility] GLUCOSE [id number] 19:15:00 Test Item Value Reference Range Interpretation Comments GLUCOSE BEDSIDE (test 154 MG/DL 70-110 H Perfor med by certified code = GLUBED) 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 [facility] GLUCOSE [id number] 17:40:00 Test Item Value Reference Range Interpretation Comments GLUCOSE BEDSIDE (test 134 MG/DL 70-110 H Perfor med by certified code = GLUBED) 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 [facility] GLUCOSE [id number] 11:39:00 Test Item Value Reference Range Interpretation Comments GLUCOSE BEDSIDE (test 156 MG/DL 70-110 H Perfor med by certified code = GLUBED) 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 [facility] GLUCOSE [id number] 08:37:00 Test Item Value Reference Range Interpretation Comments GLUCOSE BEDSIDE (test 222 MG/DL 70-110 H Perfor med by certified code = GLUBED) 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 [facility] BASIC METABOLIC [id number] 06:58:00 Test Item Value Reference Range Interpretation [...] code = 9.0 mg/dL 8.0-10.5 N CA) [id number] 06:58:00 Test Item Value Reference Range Interpretation Comments PHOSPHOROUS (test code = PHOS) 3.0 MG/DL 2.5-4.9 [id number] 06:58:00 Test Item Value Reference Range Interpretation Comments MAGNESIUM (test code = MAG) 1.89 mg/dL 1.80-2.40 N CALCIUM [id number] 06:58:00 Test Item Value Reference Range Interpretation Comments CALCIUM IONIZED (test code = AMILCAR) 1.11 MMOL/L 1.09-1.30 N CBC W/AUTO [id number] 06:47:00 Test Item Value Reference Range Interpretation [...] REQUIRED (test code NO = MDIFF) GLUCOSE [id number] 21:27:00 Test Item Value Reference Range Interpretation Comments GLUCOSE BEDSIDE (test 224 MG/DL 70-110 H Perfor med by certified code = GLUBED) 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 [facility] GLUCOSE [id number] 16:50:00 Test Item Value Reference Range Interpretation Comments GLUCOSE BEDSIDE (test 174 MG/DL 70-110 H Perfor med by certified code = GLUBED) 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 [facility] BASIC METABOLIC [id number] 15:03:00 Test Item Value Reference Range Interpretation [...] mg/dL 8.0-10.5 N CA) POC ARTERIAL BLOOD [id number] 14:28:00 Test Item Value Reference Range Interpretation Comments POC ARTERIAL BLOOD GAS PH (test 7.343 7.35-7.45 L code = POCPHA) POC ARTERIAL BLOOD GAS PCO2 (test 47.7 mmHg 35.0-45 H code = SFLIAY3G) POC TCO2 ARTERIAL (test code = 27.4 POCTCO2) POC ARTERIAL BLOOD GAS PO2 (test 105.9 mmHg 80-100.0 H code = GSSVH9J) POC HCO3 ARTERIAL (test code = 25.9 MMOL/L 22.0-26.0 N VIEVTO4T) POC BASE EXCESS (test code = 0.2 MMOL/L -4.0-4.0 N POCBEA) POC O2 SATURATION (test code = 97.7 % 90-100 N POCO2S) BASIC METABOLIC [id number] 14:28:00 Test Item Value Reference Range Interpretation [...] = POCGLU) 188 MG/DL 70-110 H HEMOGLOBIN [id number] 14:28:00 Test Item Value Reference Range Interpretation Comments HEMOGLOBIN ABG (test code = 10.0 G/DL 11.0-15.0 L HGB/ABG) [id number] 14:28:00 Test Item Value Reference Range Interpretation Comments HEMATOCRIT (test code = HCT/ABG) 29 % 33.0-45.0 L POC LACTIC [id number] 14:28:00 Test Item Value Reference Range Interpretation Comments POC LACTIC ACID (test code = 1.3 mmol/l 0.9-1.7 N POCLAC) GLUCOSE [id number] 14:10:00 Test Item Value Reference Range Interpretation Comments GLUCOSE BEDSIDE (test 182 MG/DL 70-110 H Perfor med by certified code = GLUBED) 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 [facility] GLUCOSE [id number] 10:38:00 Test Item Value Reference Range Interpretation Comments GLUCOSE BEDSIDE (test 251 MG/DL 70-110 H Perfor med by certified code = GLUBED) 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 [facility] [id number] 08:07:00 Test Item Value Reference Range Interpretation Comments VANCOMYCIN (test code = VANCO) 22.4 mcg/mL COMMENTS: supervisor grading: draw vanc level before dialysis on Sunday 07/01BASIC METABOLIC [id number] 07:58:00 Test Item Value Reference Range Interpretation [...] the recommended for bhumika for GFRby the [facility] Kidney Foundati on for Adults.The GFR will not calculate if th e sex is unknown or if thepatient's ag e is <18 years. CREATININE (test 4.7 mg/dL 0.6-1.3 H code = CREAT) CALCIUM (test code = 9.7 mg/dL 8.0-10.5 N CA) [id number] 07:58:00 Test Item Value Reference Range Interpretation Comments PHOSPHOROUS (test code = PHOS) 4.6 MG/DL 2.5-4.9 N [id number] 07:58:00 Test Item Value Reference Range Interpretation Comments MAGNESIUM (test code = MAG) 2.20 mg/dL 1.80-2.40 N CBC W/AUTO [id number] 07:39:00 Test Item Value Reference Range Interpretation [...] REQUIRED (test code NO = MDIFF) GLUCOSE [id number] 05:20:00 Test Item Value Reference Range Interpretation Comments GLUCOSE BEDSIDE (test 148 MG/DL 70-110 H Perfor med by certified code = GLUBED) 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 [facility] - XR CHEST 1 [id number] 00:00:00 [facility] : 1955 Sex: F FAX: Delmy Howell [phone] Scott: St: [facility] FAX: Serge Shetty MD FAX: Jim Mazariegos MD [phone] FAX: Adonis Canchola MD [phone] Name: MESERET MOTTA [facility] : 1955 Age/S: 67/F [address] [place] [address] Blvd Unit #: [id number] Loc: [address] [place] [address] Phys: Serge Shetty MD Acct: [id number] Dis Date: Status: ADM IN PHONE #: [phone] Exam Date: 07/01/2022 1537 FAX #: [phone] Reason: hypoxia EXAMS: CPT CODE: [id number] XR CHEST 1 V 75552 PROCEDURE INFORMATION: Exam: XR Chest Exam date [...] and/or atelectasis. Anne ctronically Signed by Amador oMra on 07/01/2022 at 1741 Reported and signed by: Sha Mora M.D. CC: Delmy Ashton MD; Serge Shetty MD; Jim Dhillon MD; Adonis Gaytan MD Technologist: RT Max(R) Trnscrd Date/Time/By: 07/01/2022 (1740) : By: [email or web address] Orig Print D/T: S: 07/01/2022 (1740) PAGE 1 Signed Report- US PELVIS [id number] 00:00:00 [facility] : 1955 Sex: F Name: MESERET MOTTA [facility] Laura Hernandez : 1955 Age/S: 67 / F [address] [place] [address] Blvd Unit #: [id number] Loc: [place] [address] Phys: Adonis Gaytan MD Acct: [id number] Dis Date: Status: ADM IN PHONE #: [phone] Exam Date: 07/01/2022 1406 FAX #: [phone] Reason: DUB...2 weeks of bleeding after 15 years of men EXAMS: CPT CODE: [id number] US PELVIS COMPLETE 78588 PROCEDURE INFORMATION: Exam: US Pelvis Complete, Transabdominal [...] Adonis Gaytan MD Technologist: Karol Quinn RDMS(AB)(OB) Trnazb Date/Time: 07/01/2022 (143) tANTOINEV Orig Print D/T: S: 07/01/2022 (2290) Probe: PAGE 1 Signed Report- US TRANSVAGINAL NON [id number] 00:00:00[facility] : 1955 Sex: F Name: MESERET MOTTA [facility] : 1955 Age/S: 67 / F [address] [place] [address] Unit #: [id number] Loc: [place] [address] Phys: Adonis Gaytan MD Acct: [id number] Dis Date: Status: ADM IN PHONE #: [phone] Exam Date: 07/01/2022 1407 FAX #: [phone] Reason: see US Pelvic Non OB Complete EXAMS: CPT CODE: [id number] [place] [address] PROCEDURE INFORMATION: Exam: US Pelvis Complete, Transabdominal [...] Orig Print D/T: S: 07/01/2022 (1434) Probe: [id number] PAGE 1 Signed ReportGLUCOSE [id number] 19:48:00 Test Item Value Reference Range Interpretation Comments GLUCOSE BEDSIDE (test 143 MG/DL 70-110 H Perfor med by certified code = GLUBED) 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 [facility] GLUCOSE [id number] 18:11:00 Test Item Value Reference Range Interpretation Comments GLUCOSE BEDSIDE (test 152 MG/DL 70-110 H Perfor med by certified code = GLUBED) 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 [facility] GLUCOSE [id number] 13:24:00 Test Item Value Reference Range Interpretation Comments GLUCOSE BEDSIDE (test 120 MG/DL 70-110 H Perfor med by certified code = GLUBED) 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 [facility] BASIC METABOLIC [id number] 09:03:00 Test Item Value Reference Range Interpretation [...] for bhumika for GFRby the [facility] Kid[facility] Foundati on for Adults.The GFR will not calculate if th e sex is unknown or if thepatient's ag e is <18 years. CREATININE (test 4.1 mg/dL 0.6-1.3 H code = CREAT) CALCIUM (test code = 9.6 mg/dL 8.0-10.5 N CA) CBC W/AUTO [id number] 07:48:00 Test Item Value Reference Range Interpretation [...] REQUIRED (test NO code = MDIFF) GLUCOSE [id number] 20:09:00 Test Item Value Reference Range Interpretation Comments GLUCOSE BEDSIDE (test 172 MG/DL 70-110 H Perfor med by certified code = GLUBED) 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 [facility] GLUCOSE [id number] 15:48:00 Test Item Value Reference Range Interpretation Comments GLUCOSE BEDSIDE (test 108 MG/DL 70-110 N Perfor med by certified code = GLUBED) 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 [facility] GLUCOSE [id number] 11:35:00 Test Item Value Reference Range Interpretation Comments GLUCOSE BEDSIDE (test 172 MG/DL 70-110 H Perfor med by certified code = GLUBED) 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 [facility] GLUCOSE [id number] 08:25:00 Test Item Value Reference Range Interpretation Comments GLUCOSE BEDSIDE (test 186 MG/DL 70-110 H Perfor med by certified code = GLUBED) 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 [facility] BASIC METABOLIC [id number] 07:50:00 Test Item Value Reference Range Interpretation [...] for bhumika for GFRby the [facility] Found[facility] on for Adults.The GFR will not calculate if th e sex is unknown or if thepatient's ag e is <18 years. CREATININE (test 4.8 mg/dL 0.6-1.3 H code = CREAT) CALCIUM (test code = 9.3 mg/dL 8.0-10.5 N CA) [id number] 07:50:00 Test Item Value Reference Range Interpretation Comments PHOSPHOROUS (test code = PHOS) 5.5 MG/DL 2.5-4.9 H [id number] 07:50:00 Test Item Value Reference Range Interpretation Comments MAGNESIUM (test code = MAG) 2.32 mg/dL 1.80-2.40 N CBC W/AUTO [id number] 07:28:00 Test Item Value Reference Range Interpretation [...] REQUIRED (test code NO = MDIFF) GLUCOSE [id number] 19:59:00 Test Item Value Reference Range Interpretation Comments GLUCOSE BEDSIDE (test 141 MG/DL 70-110 H Perfor med by certified code = GLUBED) 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 [facility] GLUCOSE [id number] 18:58:00 Test Item Value Reference Range Interpretation Comments GLUCOSE BEDSIDE (test 156 MG/DL 70-110 H Perfor med by certified code = GLUBED) 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 [facility] GLUCOSE [id number] 11:35:00 Test Item Value Reference Range Interpretation Comments GLUCOSE BEDSIDE (test 112 MG/DL 70-110 H Perfor med by certified code = GLUBED) 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 [facility] GLUCOSE [id number] 09:19:00 Test Item Value Reference Range Interpretation Comments GLUCOSE BEDSIDE (test 167 MG/DL 70-110 H Perfor med by certified code = GLUBED) 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 [facility] BASIC METABOLIC [id number] 08:14:00 Test Item Value Reference Range Interpretation [...] 9.1 mg/dL 8.0-10.5 N CA) BASIC METABOLIC [id number] 06:43:00 Test Item Value Reference Range Interpretation [...] be done morning of Heart CathCBC W/AUTO [id number] 06:23:00 Test Item Value Reference Range Interpretation [...] To be done morning of Heart CathGLUCOSE [id number] 21:04:00 Test Item Value Reference Range Interpretation Comments GLUCOSE BEDSIDE (test 99 MG/DL 70-110 N Perfor med by certified code = GLUBED) 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 [facility] GLUCOSE [id number] 16:53:00 Test Item Value Reference Range Interpretation Comments GLUCOSE BEDSIDE (test 147 MG/DL 70-110 H Perfor med by certified code = GLUBED) 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 [facility] GLUCOSE [id number] 15:43:00 Test Item Value Reference Range Interpretation Comments GLUCOSE BEDSIDE (test 154 MG/DL 70-110 H Perfor med by certified code = GLUBED) 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 [facility] [id number] 14:34:00 Test Item Value Reference Range Interpretation Comments ACT-ISTAT (test code 281 SEC 74-137 H Perform ed by certified = ACTI) 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 [facility] [id number] 08:42:00 Test Item Value Reference Range Interpretation Comments HGBA1C% (test code = HGBA1C%) 5.8 %A1C 4.8-6.0 N GLUCOSE [id number] 08:37:00 Test Item Value Reference Range Interpretation Comments GLUCOSE BEDSIDE (test 171 MG/DL 70-110 H Perfor med by certified code = GLUBED) 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 The calculatio n forGFR is based on the CKD-EPI (2020) [...] 9.4 mg/dL 8.0-10.5 N CA) COAGULATION TIME [id number] 07:05:00 Test Item Value Reference Range Interpretation Comments COAGULATION TIME 245 SECONDS Performed b y ACTIVATED (test code = certi fied 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 operator ACT) at [facility] COAGULATION TIME [id number] 07:05:00 Test Item Value Reference Range Interpretation Comments COAGULATION TIME 234 SECONDS Performed b y ACTIVATED (test code = certi fied 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 operator ACT) at [facility] GLUCOSE [id number] 06:07:00 Test Item Value Reference Range Interpretation Comments GLUCOSE BEDSIDE (test 170 MG/DL 70-110 H Perfor med by certified code = GLUBED) 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 [facility] GLUCOSE [id number] 19:40:00 Test Item Value Reference Range Interpretation Comments GLUCOSE BEDSIDE (test 143 MG/DL 70-110 H Perfor med by certified code = GLUBED) 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 [facility] [id number] 17:22:00 Test Item Value Reference Range Interpretation Comments ACT-ISTAT (test code 275 SEC 74-137 H Perform ed by certified = ACTI) 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 [facility] [id number] 16:11:00 Test Item Value Reference Range Interpretation Comments ACT-ISTAT (test code 251 SEC 74-137 H Perform ed by certified = ACTI) 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 [facility] GLUCOSE [id number] 14:10:00 Test Item Value Reference Range Interpretation Comments GLUCOSE BEDSIDE (test 192 MG/DL 70-110 H Perfor med by certified code = GLUBED) 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 [facility] GLUCOSE [id number] 11:52:00 Test Item Value Reference Range Interpretation Comments GLUCOSE BEDSIDE (test 215 MG/DL 70-110 H Perfor med by certified code = GLUBED) 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 [facility] COVID 19 Asymptomatic IH [id number] 10:33:00 Test Item Value Reference Range Interpretation [...] on theamount of vi marli (antigen) in e sample.This adri t has not been FDA cleare d or approved; the t est hasbeen authori zed by FDA under an Em ergency Use Authorizati on(EUA) for use by labo ratories certified under the CLIA thatmeet the requirements to perform moderate, high or waivedcomplexit y tests. GLUCOSE [id number] 08:19:00 Test Item Value Reference Range Interpretation Comments GLUCOSE BEDSIDE (test 220 MG/DL 70-110 H [facility] med by certified code = GLUBED) 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 [facility] COMPREHENSIVE METABOLIC [id number] 07:53:00 Test Item Value Reference Range Interpretation [...] the recommended for bhumika for GFRby the [facility] Kidney Foundati on for Adults.The GFR [...] 20-125 H TOTAL (test code = ALKP) [id number] 07:53:00 Test Item Value Reference Range Interpretation Comments PHOSPHOROUS (test code = PHOS) 6.8 MG/DL 2.5-4.9 H [id number] 07:53:00 Test Item Value Reference Range Interpretation Comments MAGNESIUM (test code = MAG) 2.24 mg/dL 1.80-2.40 GLUCOSE [id number] 06:28:00 Test Item Value Reference Range Interpretation Comments GLUCOSE BEDSIDE (test 214 MG/DL 70-110 H Perfor med by certified code = GLUBED) 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 [facility] CBC W/AUTO [id number] 05:40:00 Test Item Value Reference Range Interpretation [...] To be done morning of Heart CathRBC [id number] 05:40:00 Test Item Value Reference Range Interpretation Comments ANISOCYTOSIS (test code = ANISO) SLIGHT MACROCYTOSIS (test code = MACR) FEW COMMENTS: To be done morning of Heart Cath- XR FOOT 3 + V [id number] 00:00:00 [facility] : 1955 Sex: F FAX: Delmy Howell [phone] Scott: St: ADM FAX: Desire Marques MD [phone] FAX:Jim Mazariegos MD [phone] Name: MESERET MOTTA [facility] [place] : 1955 Age/S: 67/F [address] [place] [address] Unit #: [id number] Loc: G.[address] [place] [address] Phys: Desire Byers MD Acct: [id number] Dis Date: Status: ADM IN PHONE #: [phone] Exam Date: 06/25/2022 1610 FAX #: [phone] Reason: L foot ulcers EXAMS: CPT CODE: [id number] XR FOOT 3 + V LT [address]44 PROCEDURE INFORMATION: Exam: XR Left Foot Exam [...] Jett Mosher M.D. 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.] MDIFF) COMMENTS: Daily while on HeparinCOMPREHENSIVE METABOLIC [id number] 07:37:00 Test Item Value Reference Range Interpretation [...] H TOTAL (test code = ALKP) GLUCOSE [id number] 05:53:00 Test Item Value Reference Range Interpretation Comments GLUCOSE BEDSIDE (test 159 MG/DL 70-110 H Perfor med by certified code = GLUBED) 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 [facility] GLUCOSE [id number] 19:09:00 Test Item Value Reference Range Interpretation Comments GLUCOSE BEDSIDE (test 171 MG/DL 70-110 H Perfor med by certified code = GLUBED) 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 [facility] GLUCOSE [id number] 15:56:00 Test Item Value Reference Range Interpretation Comments GLUCOSE BEDSIDE (test 159 MG/DL 70-110 H Perfor med by certified code = GLUBED) 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 [facility] GLUCOSE [id number] 12:56:00 Test Item Value Reference Range Interpretation Comments GLUCOSE BEDSIDE (test 110 MG/DL 70-110 N Perfor med by certified code = GLUBED) 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 [facility] ACUTE HEPATITIS [id number] 12:08:00 Test Item Value Reference Range Interpretation Comments AB HEPATITIS A IGM (test NON REACTIVE INDEX NON REACT. code = HAVMAB) AG HEPATITIS B SURFACE NON REACTIVE INDEX NonReactive (test code = HBSAG) AB HEPATITIS B CORE IGM NON REACTIVE INDEX NON REACT. (test code = HBCMAB) AB HEPATITIS C (test code NON REACTIVE INDEX NON REACT. = HCVAB) AB HEPATITIS B [id number] 12:08:00 Test Item Value Reference Range Interpretation Comments AB HEPATITIS B 11.7 mIU/mL See_Comment Verified by repeat SURFACE (test code = analysi s Status of HBSAB) Immunity Anti-H Bs Level --- I nconsis tent with Immun ity 0.0 - 9.9Consis tent with Immunity >9.9Performed A t: HD [facility] [address] [id number] mine Loera MD Ph:[phone] [Automated mess age] The system 51wan generated this result transmitted ref erence range: Immunity >9.9. The reference r chikis was not used to interpret this result as normal/abnor mal. BASIC METABOLIC [id number] 08:08:00 Test Item Value Reference Range Interpretation [...] code = 9.9 mg/dL 8.0-10.5 N CA) [id number] 08:08:00 Test Item Value Reference Range Interpretation Comments PHOSPHOROUS (test code = PHOS) 7.1 MG/DL 2.5-4.9 H [id number] 08:08:00 Test Item Value Reference Range Interpretation Comments MAGNESIUM (test code = MAG) 2.64 mg/dL 1.80-2.40 H CBC W/AUTO [id number] 07:09:00 Test Item Value Reference Range Interpretation [...] = MDIFF) COMMENTS: Daily while on HeparinGLUCOSE [id number] 05:45:00 Test Item Value Reference Range Interpretation Comments GLUCOSE BEDSIDE (test 190 MG/DL 70-110 H Perfor med by certified code = GLUBED) 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 [facility] GLUCOSE [id number] 19:34:00 Test Item Value Reference Range Interpretation Comments GLUCOSE BEDSIDE (test 159 MG/DL 70-110 H Perfor med by certified code = GLUBED) 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 [facility] GLUCOSE [id number] 17:04:00 Test Item Value Reference Range Interpretation Comments GLUCOSE BEDSIDE (test 167 MG/DL 70-110 H Perfor med by certified code = GLUBED) 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 [facility] UA RFLX MICR CULT IF [id number] 16:38:00 Test Item Value Reference Range Interpretation [...] for culture: Gross HematuriaSpecimen Description: CLEAN CATCHGLUCOSE [id number] 12:14:00 Test Item Value Reference Range Interpretation Comments GLUCOSE BEDSIDE (test 147 MG/DL 70-110 H Perfor med by certified code = GLUBED) 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 [facility] THROMBOPLASTIN TIME [id number] 11:46:00 Test Item Value Reference Range Interpretation Comments THROMBOPLASTIN TIME 72.0 Seconds 25.0-39.5 H Therape utic Range: PARTIAL (test code = 50.4 - 88.3 Seconds PTT) Effective 10/22/2018 GLUCOSE [id number] 06:01:00 Test Item Value Reference Range Interpretation Comments GLUCOSE BEDSIDE (test 246 MG/DL 70-110 H Perfor med by certified code = GLUBED) 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 [facility] THROMBOPLASTIN TIME [id number] 05:17:00 Test Item Value Reference Range Interpretation Comments THROMBOPLASTIN TIME 53.5 Seconds 25.0-39.5 H Therape utic Range: PARTIAL (test code = 50.4 - 88.3 Seconds PTT) Effective 10/22/2018 CBC W/AUTO [id number] 04:16:00 Test Item Value Reference Range Interpretation [...] Daily while on Heparin- CT CHEST W/O [id number] 00:00:00 [facility] 1955 Sex: F Name: MESERET MOTTA [facility] [place] : 1955 Age/S: 67 / F [address] [place] [address] Unit #: [id number] Loc: [facility] [place] [address] Phys: Aleja Funk Acct: [id number] Dis Date: Status: ADM IN PHONE #: [phone] Exam Date: 06/22/2022 0955 FAX #: [phone] Reason: Dyspnea, CAD EXAMS: CPT CODE: [id number] CT CHEST W/O CONTRAST 64508 PROCEDURE INFORMATION: Exam: CT Chest Without Contrast;Diagnostic [...] small left pleural effusion. The small right pleur al effusion is unchanged. 2. There are patchy ground-glass opacities throughout the lungs, not significantly changed compared to prior study. This is a nonspecific finding and may represent pulmonary edema versus an infectious or inflammatory process. 3. There is diffuse body wall edema. PAGE 1 SignedReport (CONTINUED) Name: MESERET MOTTA [facility] : 1955 Age/S: 67 / F [address] [place], [place] [address] Unit #: [id number] Loc: [place] [address] Phys: Aleja Funk Acct: [id number] Dis Date: Status: ADM IN PHONE #: [phone] Exam Date: 06/22/2022954 FAX #: [phone] Reason: Dyspnea, CAD EXAMS: CPT CODE: [id number] CT CHEST W/O CONTRAST 86690 (Continued) 4. 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 [facility] THROMBOPLASTIN TIME [id number] 21:11:00 Test Item Value Reference Range Interpretation Comments THROMBOPLASTIN TIME 51.2 Seconds 25.0-39.5 H Therape utic Range: PARTIAL (test code = 50.4 - 88.3 Seconds PTT) Effective 10/22/2018 GLUCOSE [id number] 18:42:00 Test Item Value Reference Range Interpretation Comments GLUCOSE BEDSIDE (test 125 MG/DL 70-110 H Perfor med by certified code = GLUBED) 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 [facility] THROMBOPLASTIN TIME [id number] 13:02:00 Test Item Value Reference Range Interpretation Comments THROMBOPLASTIN TIME 40.0 Seconds 25.0-39.5 H Therape utic Range: PARTIAL (test code = 50.4 - 88.3 Seconds PTT) Effective 10/22/2018 PTH INTACT [id number] 12:41:00 Test Item Value Reference Range Interpretation Comments PARATHYROID HORMONE INTACT (test 661.2 pg/mL 14.0-72.0 H code = PARAI) B-TYPE NATRIURETIC [id number] 12:23:00 Test Item Value Reference Range Interpretation Comments B-TYPE NATRIURETIC PEPTIDE (test 557.0 PG/ML 0-100 H code = BNP) PROTHROMBIN [id number] 12:06:00 Test Item Value Reference Range Interpretation [...] (to prevent recurrent infar ct). 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 [place] : 1955 Age/S: 67 / F [address] Unit #: [id number] Loc: [place] [address] Phys: Aleja Funk Acct: [id number] Dis Date: Status: ADM INPHONE #: [phone] Exam Date: 06/22/2022 1510 FAX #: [phone] Reason: Vein mapping for CABG EXAMS: CPT CODE: [id number] DUP VEIN YEIMI 37964 PROCEDURE INFORMATION: Exam: US Duplex Lower Extremity [...] Greater saphenous vein is patent. Left greater saphenousvein-upper thigh: 5.2 mm Left greater saphenous vein-mid [...] Aleja OROZCO Technologist: Monty Thomas Trnazb Date/Time: 06/22/2022 (1729) Michaelle.AB53 Orig Print D/T: S: 06/22/2022 (1729) Probe: PAGE 1 Signed Report- DOP ART SGL LEVEL [id number] 00:00:00 [facility] : 1955 Sex: F Name: MESERET MOTTA [facility] : 1955 Age/S: 67 / F [address] [place] [address] Unit #: [id number] Loc: [facility] [place] [address] Phys: Aleja Funk Acct: [id number] Dis Date: Status: ADM IN PHONE #: [phone] Exam Date: 06/22/2022 4406 FAX #: [phone] Reason: PVD EXAMS: CPT CODE: [id number] DOP ART SGL LEVEL YEIMI 56289 PROCEDURE INFORMATION: Exam: US Duplex Lower Extremity [...] 1 Signed Report (CONTINUED) Name: MESERET MOTTA [facility] : 1955 Age/S: 67 / F [address] [place] [address] Unit #: [id number] Loc: [place] [address] Phys: Aleja Funk Acct: [id number] Dis Date: Status: ADM IN PHONE #: [phone] Exam Date: 06/22/2022 1509 FAX #: [phone] Reason: PVD EXAMS: CPT CODE: [id number] DOP ART SGL LEVEL YEIMI 31118 (Continued) CC: Delmy Ashton MD; Jim Dhillon MD; Aleja OROZCO Technologist: Monty Thomas Trnazb Date/Time: 06/22/2022 (1654) DanieMR72 Orig Print D/T: S: 06/22/2022 (1654) Probe: PAGE 2 Signed Report- DUP EXTRACRANIAL [id number] 00:00:00 [facility] MESERET MOTTA : 1955 Sex: F Name: MESERET MOTTA [facility] [place] : 1955 Age/S: 67 / F [address] [place] [address] Blvd Unit #: [id number] Loc: [place] [address] Phys: Aleja Funk Acct: [id number] Dis Date: Status: ADM IN PHONE #: [phone] Exam Date: 06/22/2022 1509 FAX #: [phone] Reason: CABG workup EXAMS: CPT CODE: [id number] DUP EXTRACRANIAL YEIMI 76933 PROCEDURE INFORMATION: Exam: US Duplex Bilateral Extracranial [...] Waveforms are normal. Right internal carotid artery: Plaqueformation. No occlusion or stenosis. Waveforms are normal. Right ICA/CCA ratio: Within normal limits. Right external carotid artery: No stenosis in the origin. Right vertebral artery: Unremarkable. Antegrade flow. Left common carotid artery: Plaque formation. No occlusion or stenosis. Waveforms are normal. Left internal carotid artery: Plaque formation. No occlusion or stenosis. Waveforms are normal.Left ICA/CCA ratio: Within normal limits. Left external carotid artery: No stenosis in the origin. Left vertebral artery: Unremarkable. Antegrade flow. IMPRESSION: No carotid arterial stenosis. REFERENCES: SRU CRITERIA. The degree of internal carotid artery stenosis is based on criteria defined by theciety of Radiologists in Ultrasound (SRU). Normal is no stenosis. Mild is less than 50% stenosis. Moderate is 50-69% stenosis. Severe is greater than 69% stenosis to near occlusion. Near occlusion ailyn markedly narrowed lumen. Total occlusion is no detectable patent lumen. at 1807 Reported and signed by: Paramjit Villar M.D. PAGE 1 Signed Report (CONTINUED) Name: MESERET MOTTA [facility] : 1955 Age/S: 67 / F [address] [place] [address] Blvd Unit #: [id number] Loc: [place] [address] Phys: Aleja Funk Acct: [id number] Dis Date: Status: ADM IN PHONE #: [phone] Exam Date: 06/22/2022 1509 FAX #: [phone] Reason: CABG workup EXAMS: CPT CODE: [id number] DUP EXTRACRANIAL YEIMI 01579 (Continued) CC: Kerry Ashton MD; Jim Dhillon MD; Aleja OROZCO Technologist: Monty Thomas Trnscb Date/Time: 06/22/2022 (1806) [email or web address] Orig Print D/T: S: 06/22/2022 (1807) Probe: PAGE 2 Signed ReportGLUCOSE BEDSIDE 2022-06-21 20:43:00 Test Item Value Reference Range Interpretation Comments GLUCOSE BEDSIDE (test 226 MG/DL 70-110 H Perfor med by certified code = GLUBED) 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 [facility] CBC W/AUTO [id number] 20:20:00 Test Item Value Reference Range Interpretation [...] NOT ALREADY DONE WITHIN LAST 24 HOURSGLUCOSE [id number] 18:45:00 Test Item Value Reference Range Interpretation Comments GLUCOSE BEDSIDE (test 168 MG/DL 70-110 H Perfor med by certified code = GLUBED) 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 [facility] PROTHROMBIN [id number] 18:42:00 Test Item Value Reference Range Interpretation Comments PROTHROMBIN TIME 14.9 SECONDS 9.3-12.9 H PATIENT (test code = PTP) INTERNATIONAL NORMAL 1.3 0.8-1.2 H TARGE T INR BY RATIO (test code = INDICATIO [...] the recommended for bhumika for GFRby the [facility] on for Adults.The GFR [...] COMMENTS: If not already done in ERPOC [id number] 16:16:00 Test Item Value Reference Range Interpretation Comments POC glucose (test 89 mg/dL 65-99 Wheat Washer N desire: Rubin code = 51351-7) Angelina I D: [id number] able: RN Notified [facility] [id number] 16:16:00 Test Item Value Reference Range Interpretation Comments POC glucose (test 89 mg/dL 65-99 Wheat Washer N desire: Rubin code = 40597-7) EricDevice I D: [id number] able: RN Notified [facility]2022-10-19 16:16:00 Test Item Value Reference Range Interpretation Comments POC glucose (test 89 mg/dL 65-99 Wheat Washer N desire: Rubin code = 72510-8) EricDevice I D: [id number] able: RN Notified [facility]2022-10-19 16:16:00 Test Item Value Reference Range Interpretation Comments POC glucose (test 89 mg/dL 65-99 Wheat Washer N desire: Rubin code = 19764-6) EricDevice I D: [id number] able: RN Notified [facility]2022-10-19 16:16:00 Test Item Value Reference Range Interpretation Comments POC glucose (test 89 mg/dL 65-99 Wheat Washer N desire: Rubin code = 19386-6) EricDevice I D: [id number] able: RN Notified [facility]2022-10-19 16:16:00 Test Item Value Reference Range Interpretation Comments POC glucose (test 89 mg/dL 65-99 Wheat Washer N desire: Rubin code = 75493-3) EricDevice I D: [id number] able: RN Notified [facility]2022-10-19 16:16:00 Test Item Value Reference Range Interpretation Comments POC glucose (test 89 mg/dL 65-99 Wheat Washer N desire: Rubin code = 53573-7) EricDevice I D: [id number] able: RN Notified [facility]2022-10-19 16:16:00 Test Item Value Reference Range Interpretation Comments POC glucose (test 89 mg/dL 65-99 Wheat Washer N desire: Rbuin code = 34065-9) [employer]Device I D: [id number] able: RN Notified [facility]2022-10-19 16:16:00 Test Item Value Reference Range Interpretation Comments POC glucose (test 89 mg/dL 65-99 Wheat Washer N desire: Rubin code = 59118-7) EricDevice I D: [id number] able: RN Notified [facility] [id number] 16:16:00 Test Item Value Reference Range Interpretation Comments POC glucose (test 89 mg/dL 65-99 Wheat Washer N desire: Rubin code = 58098-0) EricDevice I D: [id number] able: RN Notified [facility] [id number] 16:16:00 Test Item Value Reference Range Interpretation Comments POC glucose (test 89 mg/dL 65-99 Wheat Washer N desire: Rubin code = 05743-7) EricDevice I D: [id number] able: RN Notified [facility] [id number] 16:16:00 Test Item Value Reference Range Interpretation Comments POC glucose (test 89 mg/dL 65-99 Wheat Washer N desire: Rubin code = 86009-2) [employer] I D: [id number] able: RN Notified [facility] [id number] 16:16:00 Test Item Value Reference Range Interpretation Comments POC glucose (test 89 mg/dL 65-99 Wheat Washer N desire: Rubin code = 02115-5) EricDevice I D: [id number] able: RN Notified [facility] [id number] 13:03:01 Test Item Value Reference Range Interpretation Comments POC sodium (test code = 140 mmol/L 873-719 3595-0) POC potassium (test code 3.9 mmol/L 3.5-5.0 = 6298-4) POC glucose (test code = 78 mg/dL 65-99 2339-0) POC creatinine (test 4.6 mg/dl 0.5-0.9 H Operato r Name: code = 99663-7) Marko Corey evice ID: [id number] POC hemoglobin (test 8.5 g/dL 12.0-16.0 L code = 718-7) POC hematocrit (test 25 % 37-47 L code = 4544-3) Lab Interpretation (test Abnormal code = 87107-3) [facility] [id number] 13:03:01 Test Item Value Reference Range Interpretation Comments POC sodium (test code = 140 mmol/L 470-205 7520-0) POC potassium (test code 3.9 mmol/L 3.5-5.0 = 6298-4) POC glucose (test code = 78 mg/dL 65-99 2339-0) POC creatinine (test 4.6 mg/dl 0.5-0.9 H Operato r Name: code = 50232-9) Marko kyle ID: [id number] POC hemoglobin (test 8.5 g/dL 12.0-16.0 L code = 718-7) POC hematocrit (test 25 % 37-47 L code = 4544-3) Lab Interpretation (test Abnormal code = 68438-8) [facility] [id number] 13:03:01 Test Item Value Reference Range Interpretation Comments POC sodium (test code = 140 mmol/L 074-558 5590-0) POC potassium (test code 3.9 mmol/L 3.5-5.0 = 6298-4) POC glucose (test code = 78 mg/dL 65-99 2339-0) POC creatinine (test 4.6 mg/dl 0.5-0.9 H Operato r Name: code = 63256-8) Marko kyle ID: [id number] POC hemoglobin (test 8.5 g/dL 12.0-16.0 L code = 718-7) POC hematocrit (test 25 % 37-47 L code = 4544-3) Lab Interpretation (test Abnormal code = 23705-4) [facility]2022-10-19 13:03:01 Test Item Value Reference Range Interpretation Comments POC sodium (test code = 140 mmol/L 828-268 1232-0) POC potassium (test code 3.9 mmol/L 3.5-5.0 = 6298-4) POC glucose (test code = 78 mg/dL 65-99 2339-0) POC creatinine (test 4.6 mg/dl 0.5-0.9 H Operato r Name: code = 99705-7) Marko kyle ID: [id number] POC hemoglobin (test 8.5 g/dL 12.0-16.0 L code = 718-7) POC hematocrit (test 25 % 37-47 L code = 4544-3) Lab Interpretation (test Abnormal code = 78774-7) [facility]2022-10-19 13:03:01 Test Item Value Reference Range Interpretation Comments POC sodium (test code = 140 mmol/L 195-659 8696-0) POC potassium (test code 3.9 mmol/L 3.5-5.0 = 6298-4) POC glucose (test code = 78 mg/dL 65-99 2339-0) POC creatinine (test 4.6 mg/dl 0.5-0.9 H Operato r Name: code = 54480-0) Zhu Madhav kyle ID: [id number] POC hemoglobin (test 8.5 g/dL 12.0-16.0 L code = 718-7) POC hematocrit (test 25 % 37-47 L code = 4544-3) Lab Interpretation (test Abnormal code = 57238-7) [facility]2022-10-19 13:03:01 Test Item Value Reference Range Interpretation Comments POC sodium (test code = 140 mmol/L 465-097 0335-0) POC potassium (test code 3.9 mmol/L 3.5-5.0 = 6298-4) POC glucose (test code = 78 mg/dL 65-99 2339-0) POC creatinine (test 4.6 mg/dl 0.5-0.9 H Operato r Name: code = 95627-9) Zhu Madhav sanchesziyad ID: [id number] POC hemoglobin (test 8.5 g/dL 12.0-16.0 L code = 718-7) POC hematocrit (test 25 % 37-47 L code = 4544-3) Lab Interpretation (test Abnormal code = 85598-6) [facility]2022-10-19 13:03:01 Test Item Value Reference Range Interpretation Comments POC sodium (test code = 140 mmol/L 390-597 7254-0) POC potassium (test code 3.9 mmol/L 3.5-5.0 = 6298-4) POC glucose (test code = 78 mg/dL 65-99 2339-0) POC creatinine (test 4.6 mg/dl 0.5-0.9 H Operato r Name: code = 30534-6) Zhu Madhav kyle ID: [id number] POC hemoglobin (test 8.5 g/dL 12.0-16.0 L code = 718-7) POC hematocrit (test 25 % 37-47 L code = 4544-3) Lab Interpretation (test Abnormal code = 35572-2) [facility]2022-10-19 13:03:01 Test Item Value Reference Range Interpretation Comments POC sodium (test code = 140 mmol/L 876-874 1050-0) POC potassium (test code 3.9 mmol/L 3.5-5.0 = 6298-4) POC glucose (test code = 78 mg/dL 65-99 2339-0) POC creatinine (test 4.6 mg/dl 0.5-0.9 H Operato r Name: code = 89290-7) Zhu Madhav kyle ID: [id number] POC hemoglobin (test 8.5 g/dL 12.0-16.0 L code = 718-7) POC hematocrit (test 25 % 37-47 L code = 4544-3) Lab Interpretation (test Abnormal code = 84244-9) [facility]2022-10-19 13:03:01 Test Item Value Reference Range Interpretation Comments POC sodium (test code = 140 mmol/L 412-024 0386-0) POC potassium (test code 3.9 mmol/L 3.5-5.0 = 6298-4) POC glucose (test code = 78 mg/dL 65-99 2339-0) POC creatinine (test 4.6 mg/dl 0.5-0.9 H Operato r Name: code = 25283-1) Zhu Madhav kyle ID: [id number] POC hemoglobin (test 8.5 g/dL 12.0-16.0 L code = 718-7) POC hematocrit (test 25 % 37-47 L code = 4544-3) Lab Interpretation (test Abnormal code = 96604-3) [facility]2022-10-19 13:03:01 Test Item Value Reference Range Interpretation Comments POC sodium (test code = 140 mmol/L 266-018 4495-0) POC potassium (test code 3.9 mmol/L 3.5-5.0 = 6298-4) POC glucose (test code = 78 mg/dL 65-99 2339-0) POC creatinine (test 4.6 mg/dl 0.5-0.9 H Operato r Name: code = 23182-6) Marko kyle ID: [id number] POC hemoglobin (test 8.5 g/dL 12.0-16.0 L code = 718-7) POC hematocrit (test 25 % 37-47 L code = 4544-3) Lab Interpretation (test Abnormal code = 00921-5) [facility]2022-10-19 13:03:01 Test Item Value Reference Range Interpretation Comments POC sodium (test code = 140 mmol/L 754-736 7561-0) POC potassium (test code 3.9 mmol/L 3.5-5.0 = 6298-4) POC glucose (test code = 78 mg/dL 65-99 2339-0) POC creatinine (test 4.6 mg/dl 0.5-0.9 H Operato r Name: code = 20689-8) Marko kyle ID: [id number] POC hemoglobin (test 8.5 g/dL 12.0-16.0 L code = 718-7) POC hematocrit (test 25 % 37-47 L code = 4544-3) Lab Interpretation (test Abnormal code = 47895-2) [facility]2022-10-19 13:03:01 Test Item Value Reference Range Interpretation Comments POC sodium (test code = 140 mmol/L 119-306 4338-0) POC potassium (test code 3.9 mmol/L 3.5-5.0 = 6298-4) POC glucose (test code = 78 mg/dL 65-99 2339-0) POC creatinine (test 4.6 mg/dl 0.5-0.9 H Operato r Name: code = 51477-4) Marko kyle ID: [id number] POC hemoglobin (test 8.5 g/dL 12.0-16.0 L code = 718-7) POC hematocrit (test 25 % 37-47 L code = 4544-3) Lab Interpretation (test Abnormal code = 63951-1) [facility]2022-10-19 13:03:01 Test Item Value Reference Range Interpretation Comments POC sodium (test code = 140 mmol/L 810-720 6123-0) POC potassium (test code 3.9 mmol/L 3.5-5.0 = 6298-4) POC glucose (test code = 78 mg/dL 65-99 2339-0) POC creatinine (test 4.6 mg/dl 0.5-0.9 H Operato r Name: code = 30533-2) Marko kyle ID: [id number] POC hemoglobin (test 8.5 g/dL 12.0-16.0 L code = 718-7) POC hematocrit (test 25 % 37-47 L code = 4544-3) Lab Interpretation (test Abnormal code = 27305-5) [facility] [id number] 13:03:00 Test Item Value Reference Range Interpretation Comments Estimated GFR (test mL/min/1.73 m2 A Caterg ory Units code = 27007-2) Interpretati onG1 >=90 Normal or highG 2 60-89 Mildly decrease dG3a 45-59 Mildly to moderately decr uhqfnU4c 30-44 Moderatel y to severely decrea sedG4 15-29 Severely decreasedG5 <15 Kidney failureThe eGFR was calculated usin g the Chronic Kidney Disease Epidemiology Collaboration ( CKD-EPI) equation. Interpretation is based on recommendati ons of the [facility] [employer] [facility] Disease Outcome s Quality Initiat hermes (NK-KDOQI) pub lished in 2013. Lab Interpretation Abnormal (test code = 72328-6) [facility] [id number] 13:03:00 Test Item Value Reference Range Interpretation Comments Estimated GFR (test 9 mL/min/1.73 m2 A Caterg ory Units code = 48891-4) Interpretati onG1 >=90 Normal or highG 2 60-89 Mildly decrease dG3a 45-59 Mildly to moderately decr yonfiY7l 30-44 Moderatel y to severely decrea sedG4 15-29 Severely decreasedG5 <15 Kidney failureThe eGFR was calculated usin g the Chronic Kidney Disease Epidemiology Collaboration ( CKD-EPI) equation. Interpretation is based on recommendati ons of the [facility] [employer] [facility] Disease Outcome s Quality Initiat hermes (NK-KDOQI) pub lished in 2013. Lab Interpretation Abnormal (test code = 75899-8) [facility] [id number] 13:03:00 Test Item Value Reference Range Interpretation Comments Estimated GFR (test 9 mL/min/1.73 m2 A Caterg ory Units code = 44818-6) Interpretati onG1 >=90 Normal or highG 2 60-89 Mildly decrease dG3a 45-59 Mildly to moderately decr wnpbyO9c 30-44 Moderatel y to severely decrea sedG4 15-29 Severely decreasedG5 <15 Kidney failureThe eGFR was calculated usin g the Chronic Kidney Disease Epidemiology Collaboration ( CKD-EPI) equation. Interpretation is based on recommendati ons of the [facility] Disease Outcome s Quality Initiat hermes ([facility]) pub lished in 2013. Lab Interpretation Abnormal (test code = 81079-4) [facility] [id number] 13:03:00 Test Item Value Reference Range Interpretation Comments Estimated GFR (test 9 mL/min/1.73 m2 A Caterg ory Units code = 36105-9) Interpretati onG1 >=90 Normal or highG 2 60-89 Mildly decrease dG3a 45-59 Mildly to moderately decr mhfotW2e 30-44 Moderatel y to severely decrea sedG4 15-29 Severely decreasedG5 <15 Kidney failureThe eGFR was calculated usin g the Chronic Kidney Disease Epidemiology Collaboration ( CKD-EPI) equation. Interpretation is based on recommendati ons of the [facility] Disease Outcome s Quality Initiat hermes ([facility]) pub lished in 2013. Lab Interpretation Abnormal (test code = 82497-1) [facility] [id number] 13:03:00 Test Item Value Reference Range Interpretation Comments Estimated GFR (test 9 mL/min/1.73 m2 A Caterg ory Units code = 37294-8) Interpretati onG1 >=90 Normal or highG 2 60-89 Mildly decrease dG3a 45-59 Mildly to moderately decr swulyY1y 30-44 Moderatel y to severely decrea sedG4 15-29 Severely decreasedG5 <15 Kidney failureThe eGFR was calculated usin g the Chronic Kidney Disease Epidemiology Collaboration ( CKD-EPI) equation. Interpretation is based on recommendati ons of the [facility] Disease Outcome s Quality Initiat [facility] ([facility]) pub lished in 2013. Lab Interpretation Abnormal (test code = 59046-3) [facility] [id number] 13:03:00 Test Item Value Reference Range Interpretation Comments Estimated GFR (test 9 mL/min/1.73 m2 A Caterg ory Units code = 17630-1) Interpretati onG1 >=90 Normal or highG 2 60-89 Mildly decrease dG3a 45-59 Mildly to moderately decr aorqlY2i 30-44 Moderatel y to severely decrea sedG4 15-29 Severely decreasedG5 <15 Kidney failureThe eGFR was calculated usin g the Chronic Kidney Disease Epidemiology Collaboration ( CKD-EPI) equation. Interpretation is based on recommendati ons of the [facility] Disease Outcome s Quality Initiat hermes ([facility]) pub lished in 2013. Lab Interpretation Abnormal (test code = 43022-5) [facility] [id number] 13:03:00 Test Item Value Reference Range Interpretation Comments Estimated GFR (test 9 mL/min/1.73 m2 A Caterg ory Units code = 07997-7) Interpretati onG1 >=90 Normal or highG 2 60-89 Mildly decrease dG3a 45-59 Mildly to moderately decr htuupZ6m 30-44 Moderatel y to severely decrea sedG4 15-29 Severely decreasedG5 <15 Kidney failureThe eGFR was calculated usin g the Chronic Kidney Disease Epidemiology Collaboration ( CKD-EPI) equation. Interpretation is based on recommendati ons of the [facility] Disease Outcome s Quality Initiat [facility]mes ([facility]) pub lished in 2013. Lab Interpretation Abnormal (test code = 88883-4) [facility] [id number] 13:03:00 Test Item Value Reference Range Interpretation Comments Estimated GFR (test 9 mL/min/1.73 m2 A Caterg ory Units code = 06052-3) Interpretati onG1 >=90 Normal or highG 2 60-89 Mildly decrease dG3a 45-59 Mildly to moderately decr paswkT8w 30-44 Moderatel y to severely decrea sedG4 15-29 Severely decreasedG5 <15 Kidney failureThe eGFR was calculated usin g the Chronic Kidney Disease Epidemiology Collaboration ( CKD-EPI) equation. Interpretation is based on recommendati ons of the [facility] Disease Outcome s Quality Initiat [facility] ([facility]) pub lished in 2013. Lab Interpretation Abnormal (test code = 30399-2) [facility] [id number] 13:03:00 Test Item Value Reference Range Interpretation Comments Estimated GFR (test 9 mL/min/1.73 m2 A Caterg ory Units code = 93853-2) Interpretati onG1 >=90 Normal or highG 2 60-89 Mildly decrease dG3a 45-59 Mildly to moderately decr rbmxcE1u 30-44 Moderate ly to severely decrea sedG4 15-29 Severely decreasedG5 <15 Kidney failureThe eGFR was calculated usin g the Chronic Kidney Disease Epidemiology Collaboration ( CKD-EPI) equation. Interpretation is based on recommendati ons of the [facility] Disease Outcome s Quality Initiat [facility] ([facility]) pub lished in 2013. Lab Interpretation Abnormal (test code = 63444-5) [facility] [id number] 13:03:00 Test Item Value Reference Range Interpretation Comments Estimated GFR (test 9 mL/min/1.73 m2 A Caterg ory Units code = 09894-7) Interpretati onG1 >=90 Normal or highG 2 60-89 Mildly decrease dG3a 45-59 Mildly to moderately decr opuzrV3x 30-44 Moderatel y to severely decrea sedG4 15-29 Severely decreasedG5 <15 Kidney failureThe eGFR was calculated usin g the Chronic Kidney Disease Epidemiology Collaboration ( CKD-EPI) equation. Interpretation is based on recommendati ons of the [facility] [employer] [facility] Disease Outcome s Quality Initiat hermes ([facility]) pub lished in 2013. Lab Interpretation Abnormal (test code = 62169-5) [facility] [id number] 13:03:00 Test Item Value Reference Range Interpretation Comments Estimated GFR (test 9 mL/min/1.73 m2 A Caterg ory Units code = 45109-9) Interpretati onG1 >=90 Normal or highG 2 60-89 Mildly decrease dG3a 45-59 Mildly to moderately decr rnhntD0u 30-44 Moderatel y to severely decrea sedG4 15-29 Severely decreasedG5 <15 Kidney failureThe eGFR was calculated usin g the Chronic Kidney Disease Epidemiology Collaboration ( CKD-EPI) equation. Interpretation is based on recommendati ons of the [facility] Disease Outcome s Quality Initiat hermes ([facility]) pub lished in 2013. Lab Interpretation Abnormal (test code = 73397-1) [facility] [id number] 13:03:00 Test Item Value Reference Range Interpretation Comments Estimated GFR (test 9 mL/min/1.73 m2 A Caterg ory Units code = 48325-9) Interpretati onG1 >=90 Normal or highG 2 60-89 Mildly decrease dG3a 45-59 Mildly to moderately decr mrrtwP3d 30-44 Moderatel y to severely decrea sedG4 15-29 Severely decreasedG5 <15 Kidney failureThe eGFR was calculated usin g the Chronic Kidney Disease Epidemiology Collaboration ( CKD-EPI) equation. Interpretation is based on recommendati ons of the [facility] Disease Outcome s Quality Initiat hermes ([facility]) pub lished in 2013. Lab Interpretation Abnormal (test code = 88996-5) [facility] [id number] 13:03:00 Test Item Value Reference Range Interpretation Comments Estimated GFR (test 9 mL/min/1.73 m2 A Caterg ory Units code = 74591-1) Interpretati onG1 >=90 Normal or highG 2 60-89 Mildly decrease dG3a 45-59 Mildly to moderately decr eihpnH8p 30-44 Moderatel y to severely decrea sedG4 15-29 Severely decreasedG5 <15 Kidney failureThe eGFR was calculated usin g the Chronic Kidney Disease Epidemiology Collaboration ( CKD-EPI) equation. Interpretation is based on recommendati ons of the [facility] Disease Outcome s Quality Initiat [facility]mes ([facility]) pub lished in 2013. Lab Interpretation Abnormal (test code = 92897-9) [facility] [id number] 19:03:18 Test Item Value Reference Range Interpretation Comments Case number (test code = [id number]) Surgical pathology See link below for report (test code = PDF Lab Report 2256) Result status (test code This is Final Report = [id number]) for [id number] [facility] [id number] 19:03:18 Test Item Value Reference Range Interpretation Comments Case number (test code = [id number]) Surgical pathology See link below for report (test code = PDF Lab Report 2255) Result status (test code This is Final Report = 9063325) for [id number] [facility] pathology [id number] 19:03:18 Test Item Value Reference Range Interpretation Comments Case number (test code = [id number]) Surgical pathology See link below for report (test code = PDF Lab Report 2255) Result status (test code This is Final Report = [id number]) for [address] pathology [id number] 19:03:18 Test Item Value Reference Range Interpretation Comments Case number (test code = [id number]) Surgical pathology See link below for report (test code = PDF Lab Report 2255) Result status (test code This is Final Report = [id number]) for [address] pathology [id number] 19:03:18 Test Item Value Reference Range Interpretation Comments Case number (test code = [id number]) Surgical pathology See link below for report (test code = PDF Lab Report 2255) Result status (test code This is Final Report = [id number]) for [id number] [place] [address] pathology [id number] 19:03:18 Test Item Value Reference Range Interpretation Comments Case number (test code = [id number]) Surgical pathology See link below for report (test code = PDF Lab Report 2255) Result status (test code This is Final Report = [id number]) for [address] pathology [id number] 19:03:18 Test Item Value Reference Range Interpretation Comments Case number (test code = [id number]) Surgical pathology See link below for report (test code = PDF Lab Report 2255) Result status (test code This is Final Report = [id number]) for [address] pathology [id number] 19:03:18 Test Item Value Reference Range Interpretation Comments Case number (test code = [id number]) Surgical pathology See link below for report (test code = PDF Lab Report 2255) Result status (test code This is Final Report = [id number]) for [id number] [facility] pathology [id number] 19:03:18 Test Item Value Reference Range Interpretation Comments Case number (test code = [id number]) Surgical pathology See link below for report (test code = PDF Lab Report 2255) Result status (test code This is Final Report = [id number]) for [id number] [facility] pathology [id number] 19:03:18 Test Item Value Reference Range Interpretation Comments Case number (test code = [id number]) Surgical pathology See link below for report (test code = PDF Lab Report 2255) Result status (test code This is Final Report = [id number]) for [id number] [facility] pathology [id number] 19:03:18 Test Item Value Reference Range Interpretation Comments Case number (test code = [id number]) Surgical pathology See link below for report (test code = PDF Lab Report 2255) Result status (test code This is Final Report = [id number]) for [id number] pathology [id number] 19:03:18 Test Item Value Reference Range Interpretation Comments Case number (test code = [id number]) Surgical pathology See link below for report (test code = PDF Lab Report 2255) Result status (test code This is Final Report = [id number]) [facility] [id number] [facility] [id number] 10:49:53 Test Item Value Reference Range Interpretation [...] wave inversion now evident in Inferior leads- [facility] Pre/Post [id number] 10:49:53 Test Item Value Reference Range Interpretation Comments Ventricular rate (test 101 code = 253) Atrial rate (test code 101 = 255) AR interval (test code 160 = 266) QRSD [...] wave inversion now evident in Inferior leads- [facility] Pre/Post [id number] 10:49:53 Test Item Value Reference Range Interpretation Comments Ventricular rate (test 101 code = 253) Atrial rate (test code 101 = 255) AR interval (test code 160 = 266) QRSD [...] wave inversion now evident in Inferior leads- [facility] Pre/Post [id number] 10:49:53 Test Item Value Reference Range Interpretation Comments Ventricular rate (test 101 code = 253) Atrial rate (test code 101 = 255) AR interval (test code 160 = 266) QRSD [...] wave inversion now evident in Inferior leads- [facility] Pre/Post [id number] 10:49:53 Test Item Value Reference Range Interpretation Comments Ventricular rate (test 101 code = 253) Atrial rate (test code 101 = 255) AR interval (test code 160 = 266) QRSD [...] wave inversion now evident in Inferior leads- [facility] Pre/Post [id number] 10:49:53 Test Item Value Reference Range Interpretation Comments Ventricular rate (test 101 code = 253) Atrial rate (test code 101 = 255) AR interval (test code 160 = 266) QRSD [...] wave inversion now evident in Inferior leads- [facility] Pre/Post [id number] 10:49:53 Test Item Value Reference Range Interpretation Comments Ventricular rate (test 101 code = 253) Atrial rate (test code 101 = 255) AR interval (test code 160 = 266) QRSD [...] wave inversion now evident in Inferior leads- [facility] Pre/Post [id number] 10:49:53 Test Item Value Reference Range Interpretation Comments Ventricular rate (test 101 code = 253) Atrial rate (test code 101 = 255) AR interval (test code 160 = 266) QRSD [...] wave inversion now evident in Inferior leads- [facility] Pre/Post [id number] 10:49:53 Test Item Value Reference Range Interpretation Comments Ventricular rate (test 101 code = 253) Atrial rate (test code 101 = 255) AR interval (test code 160 = 266) QRSD [...] wave inversion now evident in Inferior leads- [facility] Pre/Post [id number] 10:49:53 Test Item Value Reference Range Interpretation Comments Ventricular rate (test 101 code = 253) Atrial rate (test code 101 = 255) AR interval (test code 160 = 266) QRSD [...] wave inversion now evident in Inferior leads- [facility] GLUCOSE (AUTOMATED)2020-10-14 12:45:50 Test Item Value Reference Range Interpretation Comments POCT GLU (test code = 9180780739) 255 mg/dL 70-110 H Lab Interpretation (test code = Abnormal 74914-6) [facility] [id number] 12:35:00 Test Item Value Reference Range Interpretation Comments POCT Glu (age>30days) (test code = 255 mg/dL 70-110 A 3342) Lab Interpretation (test code = Abnormal 38126-6) [facility]Presence] in Respiratory specimen by JUANY with probe [id number] 01:15:19 Test Item Value Reference Range Interpretation Comments SARS-CoV-2 (COVID-19) RNA Not detected Not-Detected [Presence] in Respiratory specimen by JUANY with probe detection (test code = 61131-7) [facility] [id number] 12:03:00 Test Item Value Reference Range Interpretation Comments POCT Glu (age>30days) (test code = 142 mg/dL 70-110 A 3342) Lab Interpretation (test code = Abnormal 55427-2) [facility] [Presence] in Respiratory specimen by JUANY with probe [id number] 18:03:16 Test Item Value Reference Range Interpretation Comments SARS-CoV-2 (COVID-19) RNA Not detected Not-Detected [Presence] in Respiratory specimen by JUANY with probe detection (test code = 88392-8) [facility]
[2023-04-22 13:42] LABS: Absolute Lymphocytes (CBC) 0.5 K/uL (0.7-4.9); Hematocrit 28.1 % (36.0-45.0); Lymphocytes % 7.1 % (15.3-44.8); MCV 90.3 fL (80-100); MPV 8.3 fL (7.6-11.3); Platelets 210 thou/uL (152-406); RBC Red Blood Cell Count 3.11 M/uL (3.86-4.86)
--- NOTE | 2023-04-22 13:52 | RAD REPORT ---
EXAM DESCRIPTION: RAD - Chest Single View - 04/22/2023 1:46 pm CLINICAL HISTORY: DYSPNEA Chest pain. COMPARISON: <Comparisons> FINDINGS: Portable technique limits examination quality. Mild interstitial pulmonary edema. The heart is moderately enlarged with sternotomy wires present. Ri ght-sided venous catheter its tip in the SVC.Carotid atherosclerosis on the right. IMPRESSION: Mild CHF.
[2023-04-22 14:09] LABS: Troponin High Sensitivity 49.5 pg/mL (<58.9)
[2023-04-22 14:10] LABS: Magnesium 2.2 mg/dL (1.6-2.4); Potassium 4.1 mEq/L (3.5-5.1)
[2023-04-22 15:01] LABS: Arterial Blood Carboxyhemoglob 1.6 % (0-1.5); Blood Gas Oxyhemoglobin 88.1 % (94-97); Blood O2 Saturation 91.2 % (92-98.5)
--- NOTE | 2023-04-22 15:17 | EDPHYS ---
Physician Documentation [facility] Name: Meseret Gallego Age: 68 yrs Sex: Female : 1955 Arrival Date: 04/22/2023 Time: 12:48 Bed 8 Private MD: ED Physician Anders Taylor HPI: 04/22 15:12 This 68 yrs old Female presents to ER via EMS with complaints of shortness of breath kb and weakness. 15:12 The patient has shortness of breath with light activity. Onset: The symptoms/episode kb began/occurred yesterday. Duration: The symptoms are continuous. The patient's shortness of breath is aggravated by exertion. Associated signs and symptoms: Pertinent positives: weakness. Severity of symptoms: At their worst the symptoms were moderate in the emergency department the symptoms are unchanged. The patient has not experienced similar symptoms in the past. The patient has not recently seen a physician. Pt reports she had n/v/d last week so she missed dialysis on Sunday. She went to dialysis on Sunday. Developed weakness and shortness of breath on exertion yesterday. Historical: - Allergies: 13:03 Codeine; db 13:03 Phenergan; db 13:03 Tape; db - PMHx: 13:03 Diabetes - IDDM; Dialysis; Hypothyroidism; Hypercholesterolemia; Hypertension; db Myocardial infarction; - PSHx: 13:03 2 heart stents; section; knee; back; neck; db 17:01 Coronary artery bypass graft; db - Immunization history:: Client reports receiving the 2nd dose of the Covid vaccine. - Social history:: Smoking status: Patient denies any tobacco usage or history of. ROS: 14:34 Constitutional: Negative for fever, chills, and weight loss, kb 14:34 Respiratory: Positive for dyspnea on exertion, shortness of breath, 14:34 All other systems are negative, Exam: 14:34 Constitutional: This is a well developed, well nourished patient who is awake, alert, kb and in no acute distress. Head/Face: Normocephalic, atraumatic. ENT: Moist Mucous membranes Cardiovascular: Regular rate Respiratory: Respirations even and unlabored. No increased work of breathing. Talking in full sentences Abdomen/GI: Soft, non-tender. No distention Skin: Warm, dry with normal turgor. Normal color. MS/ Extremity: Pulses equal, no cyanosis. Neurovascular intact. Full, normal range of motion. Neuro: Awake and alert, GCS 15, oriented to person, place, time, and situation. Moves all extremities. Normal gait. 14:34 Cardiovascular: Edema: pedal edema, 14:34 ECG was reviewed by the Attending Physician. Vital Signs: 12:53 BP 145 / 73; Pulse 60; Resp 20; Temp 97.8(O); Pulse Ox 100% on R/A; Weight 78.02 kg; db Height 5 ft. 6 in. ; 13:30 BP 133 / 84; Pulse 69; Resp 18; Pulse Ox 96% on R/A; db 14:00 BP 136 / 83; Pulse 60; Resp 16; Pulse Ox 95% ; db 14:30 BP 147 / 84; Pulse 61; Resp 16; Pulse Ox 97% on R/A; db 15:00 BP 122 / 86; Pulse 61; Resp 18; Pulse Ox 97% on R/A; db 16:30 BP 122 / 66; Pulse 75; Resp 18; Pulse Ox 98% on R/A; db 12:53 Body Mass Index 27.76 (78.02 kg, 167.64 cm) db MDM: 12:58 Patient medically screened. kb 15:11 Differential diagnosis: Anemia pneumonia, pulmonary edema. Data reviewed: vital signs, kb nurses notes. Consideration of Admission/Observation Patient was admitted/placed on observation. Escalation of care including admission/observation considered. Management of patient was discussed with the following: Hospitalist: Hospitalist team, pt accepted for admission under Dr Recinos. Historians other than the Patient: EMS: [facility]. Counseling: I had a detailed discussion with the patient and/or guardian regarding the historical points, exam findings, and any diagnostic results supporting the discharge/admit diagnosis, lab results, radiology results, the need for further work-up and treatment in the hospital. 04/22 12:59 Order name: Basic Metabolic Panel; Complete Time: 14:27 kb 04/22 12:59 Order name: CBC with Diff kb 04/22 12:59 Order name: Magnesium; Complete Time: 14:27 kb 04/22 12:59 Order name: NT PRO-BNP; Complete Time: 14:27 kb 04/22 12:59 Order name: Troponin HS; Complete Time: 14:27 kb 04/22 12:59 Order name: Flu; Complete Time: 14:06 kb 04/22 12:59 Order name: COVID-19 SARS RT PCR; Complete Time: 14:27 kb 04/22 14:27 Order name: ABG; Complete Time: 15:03 kb 04/22 16:54 Order name: Troponin High Sensitivity; Complete Time: 16:55 EDMS 04/22 17:19 Order name: Glucose, Ancillary Testing; Complete Time: 17:30 EDMS 04/22 12:59 Order name: XRAY Chest (1 view); Complete Time: 13:53 kb 04/22 12:59 Order name: EKG; Complete Time: 13:00 kb 04/22 12:59 Order name: Cardiac monitoring; Complete Time: 13:36 kb 04/22 12:59 Order name: EKG - Nurse/Tech; Complete Time: 13:35 kb 04/22 12:59 Order name: IV Saline Lock; Complete Time: 13:39 kb 04/22 12:59 Order name: Labs collected and sent; Complete Time: 13:39 kb 04/22 12:59 Order name: O2 Per Protocol; Complete Time: 13:39 kb 04/22 12:59 Order name: O2 Sat Monitoring; Complete Time: 13:39 kb EC:34 Rate is 61 beats/min. Rhythm is regular. QRS [place] is Normal. [place] interval is normal at kb 180 msec. QRS interval is normal at 118 msec. QT interval is prolonged at 525 msec. Administered Medications: No medications were administered Point of Care Testing: Blood Glucose: 17:01 Blood Glucose: 96 mg/dL; db Ranges: Critical Glucose Levels:Adult <50 mg/dl or >400 mg/dl <40 mg/dl or >180 mg/dl Disposition: 18:16 Co-signature as Attending Physician, Anders Taylor MD. ec2 Disposition Summary: 04/22/23 15:16 Hospitalization Ordered Notes: Hospitalization Status: Observation kb Provider: Jordan Recinos Location: Telemetry/MedSurg (observation) kb Condition: Stable kb Problem: new kb Symptoms: are unchanged kb Bed/Room Type: Standard Room Assignment: 402(04/22/23 16:31) eb Diagnosis - Weakness kb - Acidosis kb - Dyspnea kb Forms: - Medication Reconciliation Form kb - SBAR form kb - Leadership Thank You Letter kb Signatures: Dispatcher [employer] Emilee Aguiar, NILE-C [employer] OPERATOR-[place] Nova Danielle, RN RN db Anders Taylor MD MD ec2 Corrections: (The following items were deleted from the chart) 16:31 15:16 kb saadia
--- NOTE | 2023-04-22 15:17 | ER ---
Nurse's Notes [facility] Name: Meseret Gallego Age: 68 yrs Sex: Female : 1955 Arrival Date: 04/22/2023 Time: 12:48 Bed 8 Private MD: Diagnosis: Weakness;Acidosis;Dyspnea Presentation: 04/22 12:53 Chief complaint: EMS states: PT PICKED UP FROM HOME WITH SOB \T\ WEAKNESS SINCE YESTERDAY db AT NOON. STOMACH FLU SYMPTOMS WITH NAUSEA, VOMITING AND DIARRHEA STARTED SUNDAY. MISSED SUNDAY DIALYSIS. WENT SUNDAY. STARTED WEAKNESS SUNDAY. RECENT CABG 6 WEEKS AGO. BGL 175. Coronavirus screen: Vaccine status: Patient reports receiving the 2nd dose of the covid vaccine. Client denies travel out of the [place] in the last 14 days. At this time, the client does not indicate any symptoms associated with coronavirus-19. Ebola Screen: Patient negative for fever greater than or equal to 101.5 degrees Fahrenheit, and additional compatible Ebola Virus Disease symptoms Patient denies exposure to infectious person. Patient denies travel to an Ebola-affected area in the 21 days before illness onset. Initial Sepsis Screen: Does the patient meet any 2 criteria? No. Patient's initial sepsis screen is negative. Does the patient have a suspected source of infection? No. Patient's initial sepsis screen is negative. Risk Assessment: Do you want to hurt yourself or someone else? Patient reports no desire to harm self or others. Onset of symptoms was April 22, 2023. Care prior to arrival: Glucose check: 175. 12:53 Method Of Arrival: EMS: [facility] db 12:53 Acuity: CHRISTOPHER 2 db Triage Assessment: 13:03 General: Appears in no apparent distress. comfortable, Behavior is calm, cooperative. db Respiratory: Reports shortness of breath pain with movement Airway is patent Respiratory effort is even, unlabored, Respiratory pattern is regular, symmetrical. Historical: - Allergies: 13:03 Codeine; db 13:03 Phenergan; db 13:03 Tape; db - PMHx: 13:03 Diabetes - IDDM; Dialysis; Hypothyroidism; Hypercholesterolemia; Hypertension; db Myocardial infarction; - PSHx: 13:03 2 heart stents; section; knee; back; neck; db 17:01 Coronary artery bypass graft; db - Immunization history:: Client reports receiving the 2nd dose of the Covid vaccine. - Social history:: Smoking status: Patient denies any tobacco usage or history of. Screenin:41 [facility] ED Fall Risk Assessment (Adult) History of falling in the last 3 months, db including since admission No falls in past 3 months (0 pts) Confusion or Disorientation No (0 pts) Intoxicated or Sedated No (0 pts) Impaired Gait No (0 pts) Mobility Assist Device Used No (0 pt) Altered Elimination No (0 pt) Score/Fall Risk Level 0 - 2 = Low Risk Oriented to surroundings, Maintained a safe environment. Abuse screen: Denies threats or abuse. Denies injuries from another. Nutritional screening: No deficits noted. Tuberculosis screening: No symptoms or risk factors identified. Assessment: 13:40 Reassessment: Patient appears in no apparent distress at this time. Patient and/or db family updated on plan of care and expected duration. Pain level reassessed. Patient is alert, oriented x 3, equal unlabored respirations, skin warm/dry/pink. General: Appears in no apparent distress. comfortable, Behavior is calm, cooperative, Reports fatigue for 12-24 hours. Pain: Denies pain. Neuro: Level of Consciousness is awake, alert, obeys commands, Oriented to person, place, time, situation. Cardiovascular: Dialysis shunt: in the chest, with no erythema, with no edema, no bleeding noted. Cardiovascular: Reports shortness of breath. Respiratory: Airway is patent Respiratory effort is even, unlabored, Respiratory pattern is regular, symmetrical. Respiratory: Reports shortness of breath on exertion. GI: Abdomen is flat, non-distended. 14:15 Reassessment: Patient appears in no apparent distress at this time. Patient and/or db family updated on plan of care and expected duration. Pain level reassessed. Patient is alert, oriented x 3, equal unlabored respirations, skin warm/dry/pink. FAMILY IS AT BEDSIDE. 15:00 Reassessment: Patient appears in no apparent distress at this time. Patient and/or db family updated on plan of care and expected duration. Pain level reassessed. Patient is alert, oriented x 3, equal unlabored respirations, skin warm/dry/pink. 15:31 Reassessment: HOSPITALIST AT PT BEDSIDE. NOTED INCREASED HR WITH POSSIBLE AFIB. NEW EKG db ORDERED AND PERFORMED. PT REPOSITIONED. 16:57 Derm: Wound noted chest, left breast and middle chest eduardo. db 17:08 Reassessment: Patient appears in no apparent distress at this time. Patient and/or db family updated on plan of care and expected duration. Pain level reassessed. Patient is alert, oriented x 3, equal unlabored respirations, skin warm/dry/pink. Vital Signs: 12:53 BP 145 / 73; Pulse 60; Resp 20; Temp 97.8(O); Pulse Ox 100% on R/A; Weight 78.02 kg; db Height 5 ft. 6 in. ; 13:30 BP 133 / 84; Pulse 69; Resp 18; Pulse Ox 96% on R/A; db 14:00 BP 136 / 83; Pulse 60; Resp 16; Pulse Ox 95% ; db 14:30 BP 147 / 84; Pulse 61; Resp 16; Pulse Ox 97% on R/A; db 15:00 BP 122 / 86; Pulse 61; Resp 18; Pulse Ox 97% on R/A; db 16:30 BP 122 / 66; Pulse 75; Resp 18; Pulse Ox 98% on R/A; db 12:53 Body Mass Index 27.76 (78.02 kg, 167.64 cm) db ED Course: 12:58 Patient arrived in ED. kb 12:58 Emilee Childress FNP-C [facility]. kb 12:58 Anders Taylor MD is Attending Physician. kb 13:00 Yina Mina, RN is Primary Nurse. db 13:03 Triage completed. db 13:04 Arm band placed on Patient placed in an exam room. db 13:35 Inserted saline lock: 20 gauge in right forearm, using aseptic technique. Blood db collected. 13:36 EKG done, by ED staff, reviewed by Emilee FLAHERTY. em1 13:42 Patient has correct armband on for positive identification. Bed in low position. Call db light in reach. Side rails up X2. Client placed on continuous cardiac and pulse oximetry monitoring. NIBP monitoring applied. Warm blanket given. Pillow given. 13:47 XRAY Chest (1 view) In Process Unspecified. EDMS 15:16 Jordan Recinos MD is Hospitalizing Provider. kb 17:08 Provided Education on: admission. db 17:08 No provider procedures requiring assistance completed. Patient admitted, IV remains in db place. Administered Medications: No medications were administered Medication: 17:08 VIS not applicable for this client. db Point of Care Testing: Blood Glucose: 17:01 Blood Glucose: 96 mg/dL; db Ranges: Outcome: 15:16 Decision to Hospitalize by Provider. kb 17:08 Admitted to ER Hold. Please see [facility] for further documentation. db 17:08 Condition: stable 17:08 Instructed on the need for admit, 17:35 Patient left the ED. db Signatures: Dispatcher [employer] EDEmilee Melchor, FORGE HEATER-C FORGE HEATER-Moody Frank em1 Yina Mina, RN RN db
[2023-04-22] MEDS ORDERED: D50W 25 GM/50 ML SYRINGE IV PRN (15:37)
[2023-04-22] MEDS ORDERED: IPRATROPIUM BROM 0.5MG/2.5ML NEB PRN (15:37)
[2023-04-22] MEDS ORDERED: ALBUTEROL 2.5 MG/3 ML NEB SOL NEB PRN (15:37)
[2023-04-22] MEDS ORDERED: GLUCAGON 1 MG/VIAL IM PRN (15:37)
[2023-04-22] MEDS ORDERED: ACETAMINOPHEN 500 MG TAB PO PRN (15:37)
[2023-04-22] MEDS: INSULIN REGULAR (HUMAN) 100 UNIT/ML SQ SCH ×2 (16:30→20:31)
[2023-04-22 18:37] VITALS: BMI 29.7
[2023-04-22 18:53] LABS: Blood Morphology Comment NOT SEEN (NOT SEEN); Platelet Estimate ADEQ; White Blood Cell Scan OK (OK)
--- NOTE | 2023-04-22 23:02 | P.HP ---
Certification for Inpatient With expected LOS: <2 Midnights Patient will require the following post-hospital care: None Practitioner: I am a practitioner with admitting privileges, knowledge of patient current condition, hospital course, and medical plan of care. Services: Services provided to patient in accordance with Admission requirements found in Title 42 Section 412.3 of the Code of Federal Regulations Patient History Date of Service: 04/22/23 Primary Care Provider: Dr. Recinos Reason for admission: Shortness of breath, Severe weakness History of Present Illness: Julián Carl 68 yo female with h/o ESRD on HD, CAD, HTN, DM presents to the ER with c/o shortness of breath and weakness. Patient reports the SOB started 2 days ago, she missed dialysis on Sunday due to weakness. Patient denies Chest pain, or chest discomfort. patient denies fever, chills, nausea or vomiting. ED Course : vital sighsn: BP 145/73mmhg, HR 69, RR18 , spo2 96% on RA. EKG is shwoing regular sinus rhythm. Labs for elevated renal profile, BUN 93, Crea 6.83, gfr 6, BNP 159545, ABG is showing ph 7.28. Chest X-ray showing mild intestitial pulmonary edema. Admitting the patient for Severe weakness, CHF. Allergies codeine Allergy (Intermediate, Verified 08/04/22 13:31) Itching promethazine [From Phenergan] Allergy (Intermediate, Verified 08/04/22 13:31) Itching adhesive tape Adverse Reaction (Verified 08/04/22 13:31) Itching/Hives/Rash Home Medications: Metoprolol Succinate [Toprol Xl*] 12.5 mg PO BID 6AM 6PM tab 06/21/22 Clopidogrel Bisulfate [Plavix*] 75 mg PO DAILY #30 tab 09/16/22 Cyclobenzaprine [Flexeril*] 10 mg PO TID PRN #30 tab 09/16/22 Collagenase [Santyl Ointment*] 1 appl TOP DAILY #1 tube 10/26/22 Amlodipine [Norvasc*] 5 mg PO DAILY 01/28/23 Ticagrelor [Brilinta*] 90 mg PO BID 01/28/23 Amino Acids/Protein Hydrolys [Prosource No Carb Liquid Pkt] 30 ml PO BID #60 packet 02/02/23 Collagenase [Santyl Ointment*] 1 appl TOP DAILY #1 tube 02/02/23 Hydrocodone 10/APAP 325 [[place] 10/325] 1 tab PO Q6H PRN #30 tab 02/02/23 Silver Sulfadiazine Crm [Silvadene] 1 appl TOP BID #1 jar 02/02/23 - Past Medical/Surgical History Has patient received pneumonia vaccine in the past: Yes Diabetic: Yes -: IDDM -: Hypertension -: Hypothyroidism -: ESRD HD MWF -: hyperlipidemia -: depression -: Paralyzed Stomach -: Neuropathy -: CAD -: Back fusion -: bilateral total knee replacements -: bilateral carpal tunnel sx -: c section -: thyroidectomy -: neck fusion -: PD Cath then removed -: Cholecystectomy Psychosocial/ Personal History: Patient lives at [facility]. - Family History Mother -: Heart disease, Hypertension, Lung disease, Cancer Notes: breast ca Father -: Heart disease, Hypertension, Other (see notes) Notes: Alzheimer's - Social History Smoking Status: Former smoker Alcohol use: No CD- Drugs: No Caffeine use: Yes Place of Residence: Home Review of Systems General: Weakness, Malaise Eyes: Unremarkable ENT: Unremarkable Respiratory: Cough, Dry, Shortness of Breath, SOB with Excertion Cardiovascular: Edema, Other Gastrointestinal: Nausea Genitourinary: Other (anric) Musculoskeletal: Atrophy, Leg Pain Integumentary: Bruising, Other (Lower half sternal wound with eduardo, redness under the breast and groins) Neurological: Weakness (generalized) Physical Examination - Vital Signs Temperature: 97.3 F Blood Pressure: 118/57 Pulse: 62 Respirations: 15 Pulse Ox (%): 99 - Physical Exam General: Alert, Oriented x3, Cooperative HEENT: Atraumatic, Normocephalic, PERRLA Neck: 2+ carotid pulse no bruit, JVD not distended Respiratory: Clear to auscultation bilaterally, Rhonchi/gurgles Cardiovascular: No edema, Normal pulses, Regular rate/rhythm, Normal S1 S2 Capillary refill: <2 Seconds Gastrointestinal: Normal bowel sounds, Soft and benign, Non-distended, W/out hepatosplenomegaly, W/out hepatomegaly Musculoskeletal: No swelling, No contractures, No erythema, No tenderness, No warmth, Other (small skin escorietion on the toes, stiff fingers ) Neurological: Normal speech, Normal tone, Sensation intact, Cranial nerves 3-12 intact, Normal reflexes 2+, Normal affect - Studies Laboratory Data (last 24 hrs) 04/22/23 04/22/23 13:33 13:33 WBC 7.40 Hgb 9.6 L Hct 28.1 L Plt Count 210 Sodium 137 Potassium 4.1 BUN 93 H Creatinine 6.83 H Glucose 132 H Magnesium 2.2 Microbiology Data (last 24 hrs): 04/22/23 13:20 Nasopharnyx Influenza Type A Antigen Screen - Final 04/22/23 13:20 Nasopharnyx Influenza Type B Antigen Screen - Final Assessment and Plan - Plan Assessment and Plan Assessment Acute respiratory failure with hypoxia Acute on chronic systolic CHF CAD Post CABG Midsternal Chest wound incomplete healing with [place] on the lower half DM-type 2 Diabetic Neuropathy Hypertension HLD Small wounds on the Toes Hypothyroidism Plan Acute respiratory failure with hypoxia, ESRD Stage 5 On Hemodialysis * Secondary to missed Hemodialysis. Informed Nephrology, Dr. Love. Acute on chronic systolic CHF * Admitting the patient * Monitor I/O * Daily weight * Continue the home meds CAD Post CABG Midsternal Chest wound incomplete healing with [place] on the lower half * Patient reports that she has CABG 6 weeks ago in [facility] * Chest wounds are not completely healed with eduardo * Consult Dr. Lantigua. Informed Dr. Lantigua DM-type 2 * Chronic, controlled on Insulin s/c low dose * Patent denies hypoglycemia * Insulin sliding scle ordered with low dose insulin * Diabetic diet Diabetic Neuropathy Hypertension HLD Small wounds on the Toes Hypothyroidism * Continue the current home meds Code status: Full Code DVT prophylaxis: Heparin Diet: Diabetic Discharge Plan: Home Plan to discharge in: 48 Hours - Advance Directives Does patient have a Living Will: Yes Does patient have a Durable POA for Healthcare: Yes - Code Status/Comfort Care Code Status Assessed: Yes (Full cose) Physician Review: Patient Assessed, Agree with Above Assessment and Plan Critical Care: No Time Spent Managing Pts Care (In Minutes): 65 (minutes)
[2023-04-23] MEDS ORDERED: MELATONIN 5 MG TABLET PO PRN (00:23)
[2023-04-23 07:08] LABS: Absolute Lymphocytes (CBC) 0.6 K/uL (0.7-4.9); Hematocrit 29.5 % (36.0-45.0); Lymphocytes % 8.1 % (15.3-44.8); MCV 90.8 fL (80-100); Platelets 227 thou/uL (152-406); RBC Red Blood Cell Count 3.24 M/uL (3.86-4.86)
[2023-04-23 07:22] LABS: Potassium 3.9 mEq/L (3.5-5.1)
--- NOTE | 2023-04-23 07:25 | P.PN ---
Date of Service: 04/23/23 [facility] Patient Name: JENN MOTTA Date of : 1955 Patient Status: Inpatient Attending Provider: Michael Sykes Date: 04/23/23 Initialization Date: 04/23/23 Subjective: Patient is alert, oriented, NAD On O2 2 L/min through nasal cannula, no acute distress Patient denies any new complaints Patient denies palpitation, chest pain or discomfort Allergies codeine Allergy (Intermediate, Verified 08/04/22 13:31) Itching promethazine [From Phenergan] Allergy (Intermediate, Verified 08/04/22 13:31) Itching adhesive tape Adverse Reaction (Verified 08/04/22 13:31) Itching/Hives/Rash - Past Medical/Surgical History Has patient received pneumonia vaccine in the past: Yes Diabetic: Yes -: IDDM -: Hypertension -: Hypothyroidism -: ESRD HD MWF -: hyperlipidemia -: depression -: Paralyzed Stomach -: Neuropathy -: CAD -: Back fusion -: bilateral total knee replacements -: bilateral carpal tunnel sx -: c section -: thyroidectomy -: neck fusion -: PD Cath then removed -: Cholecystectomy Psychosocial/ Personal History: Patient lives at [facility]. - Family History Mother -: Heart disease, Hypertension, Lung disease, Cancer Notes: breast ca Father -: Heart disease, Hypertension, Other (see notes) Notes: Alzheimer's - Social History Smoking Status: Former smoker Alcohol use: No CD- Drugs: No Caffeine use: Yes Place of Residence: Home Review of Systems General: Weakness, Malaise Eyes: Unremarkable ENT: Unremarkable Respiratory: Cough, Dry, Shortness of Breath, SOB with Excertion Cardiovascular: Edema, Other Gastrointestinal: Nausea Genitourinary: Other (anric) Musculoskeletal: Atrophy, Leg Pain Integumentary: Bruising, Other (Lower half sternal wound with marc, redness under the breast and groins) Neurological: Weakness (generalized) Physical Examination - Vital Signs Temperature: 97. F Blood Pressure: 122/51mmhg Pulse: 59 Respirations: 18 Pulse Ox (%): 97 - Physical Exam General: Alert, Oriented x3, Cooperative HEENT: Atraumatic, Normocephalic, PERRLA Neck: 2+ carotid pulse no bruit, JVD not distended Respiratory: Clear to auscultation bilaterally, Rhonchi/gurgles Cardiovascular: No edema, Normal pulses, Regular rate/rhythm, Normal S1 S2 Capillary refill: <2 Seconds Gastrointestinal: Normal bowel sounds, Soft and benign, Non-distended, W/out hepatosplenomegaly, W/out hepatomegaly Musculoskeletal: No swelling, No contractures, No erythema, No tenderness, No warmth, Other (small skin escorietion on the toes, stiff fingers ) Neurological: Normal speech, Normal tone, Sensation intact, Cranial nerves 3-12 intact, Normal reflexes 2+, Normal affect - Studies Laboratory Data (last 24 hrs) 04/22/23 04/22/23 13:33 13:33 WBC 7.40 Hgb 9.6 L Hct 28.1 L Plt Count 210 Sodium 137 Potassium 4.1 BUN 93 H Creatinine 6.83 H Glucose 132 H Magnesium 2.2 Microbiology Data (last 24 hrs): 04/22/23 13:20 Nasopharnyx Influenza Type A Antigen Screen - Final 04/22/23 13:20 Nasopharnyx Influenza Type B Antigen Screen - Final Assessment and Plan - Plan Assessment and Plan Assessment Acute respiratory failure with hypoxia Acute on chronic systolic CHF CAD Post CABG Midsternal Chest wound incomplete healing with [place] on the lower half DM-type 2 Diabetic Neuropathy Hypertension HLD Small wounds on the Toes Hypothyroidism Plan Acute respiratory failure with hypoxia, ESRD Stage 5 On Hemodialysis * Secondary to missed Hemodialysis. Informed Nephrology, Dr. Love. * Spoke to Dr. Flores regarding the patient Acute on chronic systolic CHF * Admitting the patient * BNP elevated [id number] today * No edema no shortness of breath * Monitor I/O * Daily weight * Continue the home meds CAD Post CABG Midsternal Chest wound incomplete healing with [place] on the lower half * Patient reports that she has CABG 6 weeks ago in [facility] * Chest wounds are not completely healed with marc * Wound- Ordered daily wound cleansing, Apply Mupirocin topical bid for MRSA coversge * Darline Dermatitis under the breast: Ordered Nystatin top bid * Consult Dr. Lantigua cardilogist. Informed Dr. Lantigua DM-type 2 * Chronic, controlled on Insulin s/c low dose * Patent denies hypoglycemia * Insulin sliding scle ordered with low dose insulin * Diabetic diet Diabetic Neuropathy Hypertension HLD Small wounds on the Toes Hypothyroidism * Continue the current home meds Code status: Full Code DVT prophylaxis: Heparin Diet: Diabetic Discharge Plan: Home Plan to discharge in: 48 Hours - Advance Directives Does patient have a Living Will: Yes Does patient have a Durable POA for Healthcare: Yes - Code Status/Comfort Care Code Status Assessed: Yes (Full code) Physician Review: Patient Assessed, Agree with Above Assessment and Plan Critical Care: No Time Spent Managing Pts Care (In Minutes): 30 (minutes) <Yuko Oliveira - Last Filed: 04/23/23 09:33> dyspnea on exertion minimal improvement since yesterday most likely 2/2 pulm edema; CXR is mild-moderately worse compared to most recent echo if no significant improvement with fluid removal / dialysis; consideration for PE d-dimer very likely to be elevated given current status if any greater concern for PE, will get CTA; - discuss with nephro on timing of CTA and HD if needed cardio consulted <Michael Sykes - Last Filed: 04/23/23 21:27>
[2023-04-23] MEDS: INSULIN REGULAR (HUMAN) 100 UNIT/ML SQ SCH ×4 (07:30→21:00)
[2023-04-23] MEDS: NYSTATIN 100MU/GM CREAM 15GM TOP SCH ×2 (09:18→22:15)
[2023-04-23] MEDS: MUPIROCIN 2% OINT 22GM TUBE TOP SCH ×2 (09:18→22:15)
[2023-04-23] MEDS ORDERED: CYCLOBENZAPRINE 10 MG TAB PO PRN (09:29)
[2023-04-23] MEDS ORDERED: LORATADINE 10 MG TAB PO PRN (09:33)
[2023-04-23] MEDS: AMLODIPINE 5 MG TAB PO SCH (11:01)
[2023-04-23] MEDS: TICAGRELOR 90 MG TABLET PO SCH ×2 (11:01→22:10)
[2023-04-23 14:13] LABS: Hepatitis B Surface Ab - Quant 13.27 mIU/mL (<8.0); Hepatitis B surface AG Interp. Nonreactive (Nonreactive)
[2023-04-23] MEDS ORDERED: IPRATROPIUM BROM 0.5MG/2.5ML NEB PRN (15:00)
[2023-04-23] MEDS ORDERED: ALBUTEROL 2.5 MG/3 ML NEB SOL NEB PRN (15:00)
--- NOTE | 2023-04-23 17:02 | EKG ---
Test Date: 2023-04-23 Test Time: 09:44:07 Felled Seam Operator Chainstitch: TAYLOR MEASUREMENT RESULTS: Intervals: Rate: 59 ID: [id number] QRSD: 114 QT: 502 QTc: 496 [place]: P: 78 ID: [id number] QRS: 50 T: 59 INTERPRETIVE STATEMENTS: Sinus bradycardia Low voltage QRS Cannot rule out Anterior infarct, age undetermined Abnormal ECG Compared to ECG 04/22/2023 15:25:28 Low QRS voltage now present Myocardial infarct finding now present Sinus rhythm no longer present ST (T wave) deviation no longer present Electronically Signed On 04-23-23 17:01:11 CDT by Imer Lantigua
--- NOTE | 2023-04-23 17:04 | EKG ---
Test Date: 2023-04-22 Test Time: 15:25:28 Circuit Tester: KAIA MEASUREMENT RESULTS: Intervals: Rate: 63 NM: 180 QRSD: 112 QT: 392 QTc: 401 [place]: P: 67 NM: 180 QRS: 28 T: -54 INTERPRETIVE STATEMENTS: Normal sinus rhythm Nonspecific ST and T wave abnormality Abnormal ECG Compared to ECG 03/05/2023 10:50:47 ST (T wave) deviation now present T-wave abnormality no longer present Electronically Signed On 04-23-23 17:02:33 CDT by Imer Lantigua
--- NOTE | 2023-04-23 17:08 | RAD REPORT ---
EXAM DESCRIPTION: RAD - Chest Single View - 04/23/2023 5:01 pm CLINICAL HISTORY: f/u pulm edema / dyspnea Chest pain. COMPARISON: Chest Single View dated 04/22/2023; Chest Single View dated 03/05/2023; Chest Single View dated 03/05/2023; Chest Single View dated 01/30/2023 FINDINGS: Portable technique limits examination quality. Since yesterday's study, there has been mild worsening in pulmonary edema pattern. The heart is moder ately enlarged in size with sternotomy wires present. Right-sided venous catheter tip in the SVC.Cerv ical spine hardware plate noted. IMPRESSION: Mild worsening in CHF/ volume overload since yesterday's study.
[2023-04-23] MEDS: METOPROLOL XL 25 MG TAB PO SCH (17:09)
[2023-04-23] MEDS: AMINO ACIDS/PROTEIN HYDROLYS 30 ML LIQUID.PKT PO SCH (21:00)
--- NOTE | 2023-04-23 22:04 | CON ---
Date of Consultation: 04/23/2023 Reason For Consultation: Shortness of breath. History Of Present Illness: A 68-year-old female; end-stage renal disease, on hemodialysis; coronary artery disease, status post recent CABG; hypertension; diabetes; presented to emergency room with sh ortness of breath; orthopnea; lower extremity edema; missed dialysis last Sunday. Past Medical History: As outlined above in HPI. Medication: Refer to reconciliation sheet for detailed list. Allergies: CODEINE, PROMETHAZINE. Family History: No premature coronary artery disease or cancer. Social History: She does not smoke or drink. Does not use any drugs. Review of Systems: All systems reviewed and they were negative except what mentioned in HPI. Physical Examination: Vital Signs: Reviewed. Head and Neck: Pupils are equal, reactive to light. Intact eye movements. No JVD. No cervical steffen nopathy. Neck: Supple. Thyroid is not enlarged. Lungs: Decreased breathing sounds with faint crackles. No accessory muscle use or muscle retraction . Heart: Regular. No extra sounds. Abdomen: Soft, nontender. Bowel sounds positive. No organomegaly. No masses or hernia. No rigidi ty or rebound. Extremities: No clubbing or cyanosis. Positive edema. Neurologic: Alert, awake, oriented x3. No acute issues. Investigations: BUN is 100, creatinine 7, and hemoglobin is 9.7. Assessment/recommendation: 1.Shortness of breath due to fluid retention. She missed dialysis. Recommend fluid management per dialysis and Nephrology. 2.Coronary artery disease, status post CABG. Obtain an echocardiogram. 3.Hypertension. Blood pressure is borderline. Should improve with further diuresis. SR/MODL Voice ID: [id number] Report ID: [id number]
[2023-04-23] MEDS: SILVER SULFADIAZINE 1% 50 GM TOP SCH (22:18)
--- NOTE | 2023-04-23 23:16 | CON ---
Date of Consultation: 04/23/2023 Reason For Consultation: End-stage renal disease, hemodialysis. History Of Present Illness: Patient has fluid overload. She did not go for routine dialysis on . She missed her dialysis on Sunday and came to emergency room last night because of shortness of breath. She is 68-year-old woman with end-stage renal disease, on hemodialysis; coronary artery dise ase, status post CABG; hypertension; diabetes mellitus. She presented to the hospital with shortness of breath, orthopnea, lower extremity edema, and missed dialysis last week. Past Medical History: Hypertension, diabetes mellitus with renal manifestation, CABG, anemia, CKD. Social History: Denies tobacco, alcohol. Family History: Hypertension. No coronary artery disease. Physical Examination: General: Patient is awake, alert, follows commands. Eyes: Anicteric sclerae. EOMI. Ears, Nose, Mouth, and Throat: Oral mucosa moist. No pallor. Neck: Supple. No bruits. Lungs: Diminished breath sounds at bases. Few crackles. Abdomen: Soft, benign, nontender. Cardiovascular S1, S2. Regular rate and rhythm. Abdomen: Obese. Extremities: No clubbing. No cyanosis. Presence of edema in the lower extremity. Laboratory Data: Blood work: BUN is 100, creatinine 7. Hemoglobin 9.7. Impression And Plan: 1.Fluid overload, congestive heart failure with diastolic dysfunction. Continue ultrafiltration as tolerated to improve volume status for tomorrow. Patient will have followup with Cardiology. 2.Renal osteodystrophy. Continue binders. Monitor phosphorus level. 3.Deconditioning. Patient may be a candidate for rehab. 4.Anemia in chronic kidney disease. Evaluate lab work and continue treatment according to lab resul ts. EB/MODL Voice ID: [id number] Report ID: [id number]
[2023-04-23] MEDS ORDERED: MORPHINE 4 MG/ML SYR IV ONE (23:55)
[2023-04-24 04:37] LABS: Absolute Lymphocytes (CBC) 0.4 K/uL (0.7-4.9); Hematocrit 28.2 % (36.0-45.0); Lymphocytes % 6.7 % (15.3-44.8); MCV 89.6 fL (80-100); MPV 7.7 fL (7.6-11.3); Platelets 241 thou/uL (152-406); RBC Red Blood Cell Count 3.15 M/uL (3.86-4.86)
[2023-04-24 05:06] LABS: Potassium 3.2 mEq/L (3.5-5.1)
[2023-04-24 05:10] LABS: Troponin High Sensitivity 61.7 pg/mL (<58.9)
[2023-04-24] MEDS: METOPROLOL XL 25 MG TAB PO SCH ×2 (05:21→16:09)
[2023-04-24] MEDS: INSULIN REGULAR (HUMAN) 100 UNIT/ML SQ SCH ×4 (07:30→20:48)
[2023-04-24] MEDS: AMLODIPINE 5 MG TAB PO SCH (08:53)
[2023-04-24] MEDS: COLLAGENASE 30 GM OINTMENT TOP SCH (08:53)
[2023-04-24] MEDS: MUPIROCIN 2% OINT 22GM TUBE TOP SCH ×2 (08:54→20:50)
[2023-04-24] MEDS: NYSTATIN 100MU/GM CREAM 15GM TOP SCH ×2 (08:54→20:50)
[2023-04-24] MEDS: SILVER SULFADIAZINE 1% 50 GM TOP SCH ×2 (08:55→20:50)
[2023-04-24] MEDS ORDERED: CLOPIDOGREL 75 MG TABLET PO SCH (09:00)
[2023-04-24] MEDS: AMINO ACIDS/PROTEIN HYDROLYS 30 ML LIQUID.PKT PO SCH ×2 (09:00→21:00)
[2023-04-24] MEDS: TICAGRELOR 90 MG TABLET PO SCH ×2 (09:00→20:49)
[2023-04-24] MEDS ORDERED: ONDANSETRON 4 MG/2 ML VIAL IV ONE (16:07)
--- NOTE | 2023-04-24 16:25 | P.PN ---
Subjective Date of Service: 04/24/23 Primary Care Provider: Dr. Recinos Chief Complaint: Shortness of breath, Severe weakness Patient has been experiencing nausea today. She vomited once during lunch. Physical Examination - Vital Signs Temperature: 97.1 F Blood Pressure: 106/44 Pulse: 61 Respirations: 18 Pulse Ox (%): 97 Assessment And Plan - Plan Physical Exam General: Alert, Oriented x3, Cooperative Neck: JVD not distended Respiratory: Clear to auscultation bilaterally, diminished breath sounds bilaterally. Cardiovascular: No edema, Normal pulses, Regular rate/rhythm, Normal S1 S2 Gastrointestinal: Normal bowel sounds, Soft and benign, Non-distended. Musculoskeletal: No swelling, No erythema, No tenderness. Neurological: Normal speech, no focal motor deficit. Diagnosis Acute respiratory failure with hypoxia Acute on chronic systolic CHF CAD Post CABG Midsternal Chest wound incomplete healing with Edu[place] on the lower half DM-type 2 Diabetic Neuropathy Hypertension HLD Small wounds on the Toes Hypothyroidism Plan Acute respiratory failure with hypoxia, ESRD Stage 5 On Hemodialysis * Secondary to missed Hemodialysis. Informed Nephrology, Dr. Love. * Spoke to Dr. Flores regarding the patient Acute on chronic diastolic CHF * No edema. * Repeat chest x-ray demonstrate worsening volume overload. * Manage with dialysis. Patient is scheduled for another hemodialysis today. ESRD * Nephrology is following * Hemodialysis per nephrology. CAD Post CABG Midsternal Chest wound incomplete healing with [place] on the lower half * Patient reports that she had CABG 6 weeks ago in [facility] * Chest wounds are not completely healed with eduardo * Mupirocin topical bid for MRSA coversge * Darline Dermatitis under the breast: Nystatin top bid * Dr. Lantigua input appreciated. DM-type 2 * Chronic, controlled on Insulin s/c low dose * Insulin sliding scale. * Diabetic diet Diabetic Neuropathy Hypertension HLD Small wounds on the Toes Hypothyroidism * Continue the current home meds Code status: Full Code DVT prophylaxis: Heparin
--- NOTE | 2023-04-24 17:02 | PN ---
Date of Progress Note: 04/24/2023 Subjective: The patient with end-stage renal disease, was admitted for shortness of breath and fluid overload. The patient had dialysis yesterday. Today, she is still on oxygen, but she is able to li e flat. Chest x-ray still shows pulmonary edema. We will the patient today and she can b e discharged after dialysis today to resume her dialysis tomorrow as an outpatient. Objective: Vital Signs: Temperature 97.1, pulse rate 61, blood pressure 138/61. General: Awake, alert, oriented x3, not in distress, on oxygen. Neck: Supple. No elevated JVD. Heart: Regular rate and rhythm. Normal S1, S2. Chest: Mild bilateral rales. Abdomen: Soft, nontender. Extremities: Trace edema. Laboratory Data: White count 6.3, hemoglobin 9.4. Sodium 137, potassium 3.2, BUN 56, creatinine 4.7 . Troponin 61. BNP 150,000. Assessment And Plan: 1.End-stage renal disease. The patient had dialysis yesterday. We will do dialysis today and patie nt can be discharged after dialysis today to resume her dialysis tomorrow. Renal dose medication. 2.Pulmonary edema with pleural effusion. Dialysis as above. 3.Hypertension. Continue current medication. We will correct with dialysis. 4.Anemia of chronic disease. To resume Epogen as an outpatient. Thanks for allowing me to participate in patient's care. Total time spent 55 minutes including docum entation, reviewing labs, and discussing with the patient at bedside. RODOLFO Voice ID: [id number] Report ID: [id number]
[2023-04-24] MEDS ORDERED: MORPHINE 4 MG/ML SYR IV ONE (23:02)
[2023-04-25] MEDS ORDERED: DIPHENHYDRAMINE 50 MG/ML VIAL IV PRN (01:37)
[2023-04-25] MEDS ORDERED: DIPHENHYDRAMINE 50 MG/ML VIAL ONE (01:50)
[2023-04-25] MEDS: METOPROLOL XL 25 MG TAB PO SCH (05:29)
[2023-04-25] MEDS: INSULIN REGULAR (HUMAN) 100 UNIT/ML SQ SCH ×2 (07:30→12:36)
[2023-04-25 07:37] LABS: Absolute Lymphocytes (CBC) 0.4 K/uL (0.7-4.9); Hematocrit 29.6 % (36.0-45.0); Lymphocytes % 5.8 % (15.3-44.8); MCV 90.9 fL (80-100); MPV 7.3 fL (7.6-11.3); Platelets 212 thou/uL (152-406); RBC Red Blood Cell Count 3.26 M/uL (3.86-4.86)
[2023-04-25 07:48] LABS: Potassium 3.5 mEq/L (3.5-5.1)
[2023-04-25] MEDS: AMINO ACIDS/PROTEIN HYDROLYS 30 ML LIQUID.PKT PO SCH (09:00)
[2023-04-25] MEDS: COLLAGENASE 30 GM OINTMENT TOP SCH (09:34)
[2023-04-25] MEDS: AMLODIPINE 5 MG TAB PO SCH (09:34)
[2023-04-25] MEDS: NYSTATIN 100MU/GM CREAM 15GM TOP SCH (09:34)
[2023-04-25] MEDS: TICAGRELOR 90 MG TABLET PO SCH (09:34)
[2023-04-25] MEDS: MUPIROCIN 2% OINT 22GM TUBE TOP SCH (09:34)
[2023-04-25] MEDS: SILVER SULFADIAZINE 1% 50 GM TOP SCH (09:35)
--- NOTE | 2023-04-25 10:46 | ECHO ---
HEIGHT: 5 ft 6 in WEIGHT: 171 lb 9.6 oz DATE OF STUDY: 04/24/[address]: Michael Sykes MD 2-DIMENSIONAL: YES M.MODE: YES DOPPLER: YES COLOR FLOW: YES TDS: PORTABLE: YES DEFINITY: BUBBLE STUDY: DIAGNOSIS: EVALUATE FUNCTION/ STATUS POST CORONARY ARTERY BYPASS GRAFT SIX WEEKS AGO CARDIAC HISTORY: CATHERIZATION: SURGERY: YES PROSTHETIC VALVE: PACEMAKER: MEASUREMENTS (cm) DIASTOLIC (NORMALS) SYSTOLIC (NORMALS) IVSd 1.1 (0.6-1.2) LA Diam 4.3 (1.9-4.0) LVEF 55-60% LVIDd 5.4 (3.5-5.7) LVIDs 4.3 (2.0-3.5) %FS 20% LVPWd 1.2 (0.6-1.2) Ao Diam 2.8 (2.0-3.7) 2 DIMENSIONAL ASSESSMENT: RIGHT ATRIUM: NORMAL LEFT ATRIUM: ENLARGED RIGHT VENTRICLE: NORMAL LEFT VENTRICLE: MILD LEFT VENTRICULAR HYPERTROPHY TRICUSPID VALVE: MODERATE TRICUSPID REGURGITATION MITRAL VALVE: NORMAL PULMONIC VALVE: MODERATE PULMONIC INSUFFICIENCY AORTIC VALVE: AORTIC VALVE SCLEROSIS PERICARDIAL EFFUSION: NONE AORTIC ROOT: NORMAL LEFT VENTRICULAR WALL MOTION: NORMAL DOPPLER/COLOR FLOW: SEE BELOW COMMENTS: 1. NORMAL LEFT VENTRICULAR EJECTION FRACTION 55-60% 2. NORMAL WALL MOTION 3. MILD CONCENTRIC LEFT VENTRICULAR HYPERTROPHY 4. MODERATE TRICUSPID REGURGITATION 5. MODERATE PULMONIC INSUFFICIENCY TECHNOLOGIST: ALICE SIMMONS
[2023-04-25 12:11] VITALS: BP 145/69; TEMP 97.6
[2023-04-25 12:29] VITALS: O2SAT 96
--- NOTE | 2023-04-25 12:40 | P.DS ---
Admission Date: 04/22/23 Discharge Date: 04/25/23 Primary Care Provider: Dr. Recinos Disposition: DC HOME/HOME HEALTH CARE Discharge Condition: FAIR Reason for Admission: Shortness of breath, Severe weakness Brief History of Present Illness: Julián Carl 68 yo female with h/o ESRD on HD, CAD, HTN, DM presented to the ER with c/o shortness of breath and weakness. Patient reported the SOB started 2 days prior, she missed dialysis on Sunday due to weakness. Patient denied any chest pain, or chest discomfort. patient denies fever, chills, nausea or vomiting. ED Course : vital sighsn: BP 145/73mmhg, HR 69, RR18 , spo2 96% on RA. EKG is shwoing regular sinus rhythm. Labs for elevated renal profile, BUN 93, Crea 6.83, gfr 6, BNP [id number], ABG is showing ph 7.28. Chest X-ray showing mild intestitial pulmonary edema. Patient admitted for further management. Hospital Course: Diagnosis Acute respiratory failure with hypoxia Acute on chronic systolic CHF CAD Post CABG Midsternal Chest wound incomplete healing with [place] on the lower half DM-type 2 Diabetic Neuropathy Hypertension HLD Small wounds on the Toes Hypothyroidism Patient admitted to the medical floor and the following medical problems addressed: Acute on chronic respiratory failure with hypoxia, ESRD Stage 5 On Hemodialysis * Secondary to missed Hemodialysis. Nephrology, Dr. Flores consulted. * Patient underwent hemodialysis. * Patient shortness of breath improved with treatment. * She tolerated room air with good oxygen saturation.. Acute on chronic diastolic CHF * No edema. * Manage with multiple hemodialysis sessions. ESRD * Patient underwent hemodialysis. CAD Post CABG Midsternal Chest wound incomplete healing with [place] on the lower half * Patient reports that she had CABG 6 weeks prior in [facility] * Chest wounds are not completely healed with eduardo * Mupirocin topical bid for MRSA coversge * Darline Dermatitis under the breast: Nystatin top bid * Dr. Lantigua input appreciated. * Patient has been informed to follow-up with his CT surgeon regarding had CABG sutures. DM-type 2 * Insulin sliding scale. * Diabetic diet Diabetic Neuropathy Hypertension HLD Small wounds on the Toes Hypothyroidism * Continued home meds. Vital Signs/Physical Exam: Temp Pulse Resp BP Pulse Ox 97.6 F 67 16 145/69 H 97 10/18/23 12:00 04/25/23 12:00 04/25/23 12:00 04/25/23 12:00 04/25/23 12:00 General: Alert, In no apparent distress, Oriented x3 HEENT: Mucous membr. moist/pink Neck: Supple, JVD not distended Respiratory: Clear to auscultation bilaterally, Normal air movement Cardiovascular: No edema, Regular rate/rhythm, Normal S1 S2 Gastrointestinal: Normal bowel sounds, Soft and benign, Non-distended Musculoskeletal: No swelling, No tenderness Neurological: Normal speech, Normal strength at 5/5 x4 extr Laboratory Data at Discharge: WBC 6.10 thou/uL (4.3-10.9) 04/25/23 07:26 Hgb 9.8 g/dL (12.0-15.0) L 04/25/23 07:26 Hct 29.6 % (36.0-45.0) L 04/25/23 07:26 Plt Count 212 thou/uL (152-406) 04/25/23 07:26 Sodium 139 mEq/L (136-145) 04/25/23 07:26 Potassium 3.5 mEq/L (3.5-5.1) 04/25/23 07:26 BUN 36 mg/dL (7-18) H 04/25/23 07:26 Creatinine 3.86 mg/dL (0.55-1.02) H 04/25/23 07:26 Glucose 224 mg/dL (74-106) H 04/25/23 07:26 Magnesium 2.0 mg/dL (1.6-2.4) 04/24/23 03:38 Home Medications: Metoprolol Succinate [Toprol Xl*] 12.5 mg PO BID 6AM 6PM tab 06/21/22 Cyclobenzaprine [Flexeril*] 10 mg PO TID PRN #30 tab 09/16/22 Collagenase [Santyl Ointment*] 1 appl TOP DAILY #1 tube 10/26/22 Amlodipine [Norvasc*] 5 mg PO DAILY 01/28/23 Ticagrelor [Brilinta*] 90 mg PO BID 01/28/23 Amino Acids/Protein Hydrolys [Prosource No Carb Liquid Pkt] 30 ml PO BID #60 packet 02/02/23 Hydrocodone 10/APAP 325 [[place] 325*] 1 tab PO Q6H PRN #30 tab 02/02/23 Silver Sulfadiazine Crm [Silvadene*] 1 appl TOP BID #1 jar 02/02/23 Albuterol Neb [Proventil 0.083% Neb Soln] 2.5 mg NEB [id number] PRN #120 amp 04/25/23 Ipratropium Neb [Atrovent*] 0.5 mg NEB [id number] PRN #120 amp 04/25/23 Loratadine [Claritin*] 10 mg PO DAILY PRN #30 tab 04/25/23 Mupirocin Oint [Bactroban 2% Ointment*] 1 appl TOP BID #1 tube 04/25/23 Nystatin Cream [Mycostatin 100MU/Gm Cream*] 1 appl TOP BID #1 tube 04/25/23 New Medications: Ipratropium Neb [Atrovent*] 0.5 mg NEB [id number] PRN #120 amp PRN Reason: Wheezing Albuterol Neb [Proventil 0.083% Neb Soln] 2.5 mg NEB [id number] PRN #120 amp PRN Reason: Wheezing Mupirocin Oint [Bactroban 2% Ointment*] 1 appl TOP BID #1 tube Loratadine [Claritin*] 10 mg PO DAILY PRN #30 tab PRN Reason: Allergies Nystatin Cream [Mycostatin 100MU/Gm Cream*] 1 appl TOP BID #1 tube Diet: Renal Activity: Fall precautions Followup: NONE,NONE [Primary Care Provider] - 1-2 Weeks Time spent managing pt's care (in minutes): 36
--- NOTE | 2023-04-25 15:26 | PN ---
Date of Progress Note: 04/25/2023 Subjective: The patient was admitted to the hospital with over volume, shortness of breath. The pat ient had missed dialysis. The patient dialyzed daily yesterday and day before. Objective: Vital Signs: Blood pressure 127/68, pulse of 66, afebrile. Chest: Faint rales on the base. Heart: S1 and S2 regular. Abdomen: Soft, nontender. Extremities: Dressing on the foot. No edema. Neurologic: Alert. No focality. Laboratory Data: Hemoglobin 9.8. Sodium 139, potassium 3.5, bicarb 26, BUN 36, creatinine 3.8, calc ium 8.3. Current Medications: The patient includes, 1.Albuterol. 2.Loratadine. 3.Heparin. 4.Brilinta. 5.Metoprolol. 6.Breathing treatment. 7.Melatonin. Assessment And Plan: 1.End-stage renal disease, over volume, status post dialysis daily, currently normal volume. We antoni l back the patient to her schedule Sunday, Sunday, Sunday. The patient is scheduled for dialysis today. We arranged for outpatient dialysis. 2.Hypertension, controlled optimal. Continue current treatment. 3.Secondary hyperparathyroid, stable. 4.Anemia of chronic kidney disease. Continue ASA. 5.Congestive heart failure with exacerbation. Continue daily dialysis, currently back to normal vol ume. We will back 2-3 times a week. 6.Hyponatremia, will be corrected with dialysis. The patient cleared from the Renal standpoint for discharge planning. CR Voice ID: [id number] Report ID: [id number]
== END 2023-04-25 15:20 | disposition home health service (06) | DRG 291 ==
LOC: ER 12:48 → ERHOLD 15:35 → 4TH 17:04
PROVIDERS: ADMIT Nurse Practitioner; ATTEND Internal Medicine
DX: I13.2 Hypertensive heart and chronic kidney disease with heart failure and with stage 5 chronic kidney disease, or end stage renal disease (principal); I50.23 Acute on chronic systolic (congestive) heart failure; J96.01 Acute respiratory failure with hypoxia; N18.6 End stage renal disease; E87.20 Acidosis, unspecified; N25.81 Secondary hyperparathyroidism of renal origin; E87.1 Hypo-osmolality and hyponatremia; E11.22 Type 2 diabetes mellitus with diabetic chronic kidney disease; E11.40 Type 2 diabetes mellitus with diabetic neuropathy, unspecified; D63.1 Anemia in chronic kidney disease; E03.9 Hypothyroidism, unspecified; N25.0 Renal osteodystrophy; L30.8 Other specified dermatitis; E78.00 Pure hypercholesterolemia, unspecified; I25.10 Atherosclerotic heart disease of native coronary artery without angina pectoris; I25.2 Old myocardial infarction; Z88.5 Allergy status to narcotic agent; Z95.1 Presence of aortocoronary bypass graft; Z95.5 Presence of coronary angioplasty implant and graft; Z99.2 Dependence on renal dialysis; Z88.8 Allergy status to other drugs, medicaments and biological substances; Z90.49 Acquired absence of other specified parts of digestive tract; Z79.02 Long term (current) use of antithrombotics/antiplatelets; Z91.048 Other nonmedicinal substance allergy status; Z91.158 Patient's noncompliance with renal dialysis for other reason; Z79.899 Other long term (current) drug therapy; Z96.653 Presence of artificial knee joint, bilateral; Z87.891 Personal history of nicotine dependence; Z20.822 Contact with and (suspected) exposure to COVID-19
CPT/HCPCS: 36415; 36600; 71045; 80048; 82805; 82947; 83735; 83880; 84484; 85025; 86706; 87340; 87635; 87804; 90935; 93005; 93306; 99285; J1200; J1644; J1815; J2405; J3590; J7613; J7644

== ENCOUNTER 2023-05-09 06:06 | Inpatient (IN) | payer OTHER ==
--- OUTSIDE RECORDS SUMMARY | 2023-05-09 06:35 | XMS REPORT | Continuity of Care Document ---
:1955 Author Organization [facility] t Address [address] [place] [address] [address] [place] [address] Care Team Providers Name Role Phone Graham Johnson MD Primary Care Physician Dann Hernandez Attending Clinician Unavailable LANCE TRAVIS Attending Clinician Unavailable DRISS CAPPS Attending Clinician Unavailable JULIA GRADY Attending Clinician Unavailable DANIEL HAMILTON Attending Clinician Unavailable DINAH BURNS Attending Clinician Unavailable SHIRA ROBB Attending Clinician Unavailable BROOKLYN MACHADO Attending Clinician Unavailable REZA GEORGE Attending Clinician Unavailable SEUN DOYLE Attending Clinician Unavailable CAM MCLAIN Attending Clinician Unavailable [id number] Attending Clinician Unavailable Forest Schmid Attending Clinician Unavailable Joaquín Rubio Attending Clinician Unavailable Alexandra Arrieta Attending Clinician Unavailable FAUSTO MORAES Attending Clinician Unavailable [email or web address] Attending Clinician Unavailable ELÍAS MAYER Attending Clinician Unavailable ADAIR AKBAR Attending Clinician Unavailable MATTHEW RYAN Attending Clinician Unavailable MICHAELA HOLBROOK Attending Clinician Unavailable ANDREW MALCOLM Attending Clinician Unavailable RALPH SANTANA Attending Clinician Unavailable JEFRY STEWART Attending Clinician Unavailable KEITH RUBIO Attending Clinician Unavailable THOR LAI Attending Clinician Unavailable Trey RAYO, Ivan Guy Attending Clinician Unavailable Doctor Unassigned, [place] Attending Clinician Unavailable BROOKLYN URBAN Attending Clinician Unavailable Sarahy Ruth Attending Clinician Liya BURROUGHS, Tavo Attending Clinician Duke Harden MD Attending Clinician Brooklyn Urban DO Attending Clinician Leyla Lowry MD Attending Clinician Daija Ruiz RN Attending Clinician Unavailable Cori ARIAS, Katherin Angulo Attending Clinician Adonis Gaytan Attending Clinician Unavailable Jose Becker MD Attending Clinician Benjie BURROUGHS, Reji Baldwin Attending Clinician Ce Knutson NP Attending Clinician CARSON IVERSON Attending Clinician Unavailable Yvan BURROUGHS, Jory Nguyen Attending Clinician [phone] Mao ARIAS, oCrrina To Attending Clinician [phone] Funmi Allen MA Attending Clinician Unavailable [...] Clinician Unavailable Ralph Christensen CRNA Attending Clinician Tracy Heart MD Attending Clinician BO CARTER Attending Clinician Unavailable REZA GEORGE Admitting Clinician Unavailable BRAD ARRIAGA Admitting Clinician Unavailable [id number] Admitting Clinician Unavailable Forest Schmid Admitting Clinician Unavailable FAUSTO MORAES Admitting Clinician Unavailable [email or web address] Admitting Clinician Unavailable TAVO NICKERSON Admitting Clinician [...] Date Expiration Date S ource [employer] MEDICARE [id number] 2021 ADV 00:00:00 HUMM HUMM [id number] WELLMED/AARP [id number] 2020 MCARE ADV 00:00:00 CHOICE PPO MEDICARE PART A [id number] 2020 \\T\\ B 00:00:00 HU[employer] MEDICARE 53 [id number] 2021 Common Sp rachelle 00:00:00 [facility] Problems Condition Condition Condition Status Onset Resolution Last Treating Co mments Source Name Details Category Date Date Treatment Clinician Date Chronic Chronic Disease Active Univers combined combined 6-12 ity of systolic systolic 00:00: [place] and and 00 Medical diastolic diastolic Bran ch congestive congestive heart heart failure failure HFrEF HFrEF Disease Active Univers (heart (heart -09 ity of failure failure 00:00: [place] with [...] Septic Septic Disease Active Univers shock shock 6- ity of 00:00: [place] 00 Medical Branch Fever and Fever and Disease Active Uni vers chills chills 6-08 ity of 00:00: [place] 00 Medical Branch End stage End stage Disease Active Uni vers renal renal 4-30 ity of disease disease 00:00: [place] due to due to 00 Medical benign benign Branch hypertensi hypertensi on on Dyslipidem Dyslipidem Disease Active U nivers ia ia 4-30 ity of 00:00: [place] 00 Medical Branch Essential Essential Disease Active Uni vers hypertensi hypertensi 4-30 it y of on on 00:00: [place] 00 Medical Branch Lethargy Lethargy Disease Active Unive rs 4-29 ity of 00:00: [place] 00 [facility] Branch CKD CKD Disease Active Overview: Method i (chronic (chronic 5-10 Formattin kidney kidney 00:00: g of this Hospita disease), disease), 00 note l stage V stage V might be different from the original. Added automatic ally from request for surgery [id number] ESRD (end ESRD (end Disease Active 2019-07 Met hodi stage stage 1-05 st renal renal 00:00: Hospita disease) disease) 00 l on on dialysis dialysis [id number] Unsteady Problem Commo n gait [facility] - [facility] Arrhythmia Arrhythmia Problem C ommon Spirit [facility] [id number] Retinopath Problem Com mon y Spirit - [facility] [id number] Seasonal Problem Comm on allergies Spirit - [facility] [id number] PUD Problem Common (peptic Spirit ulcer - CHI disease) [facility] [id number] Body mass Problem Com mon index Spirit [BMI] - CHI 38.0-38.9, [facility] [id number] Diabetic Problem Comm on polyneurop Spirit athy - [facility] associated St with type [facility] 2 diabetes Medica mellitus [place] [id number] Morbid Problem Commo n 9104 (severe) Spirit obesity - [facility] [id number] Type 2 Problem Common diabetes Spirit mellitus - [facility] with [facility] chronic Medical kidney Center disease Secondary Secondary Problem Com mon hyperparat hyperparat Sp rachelle hyroidism hyroidism, - C HI not [facility] classified Medica l Center Athscl Athscl Problem Common k[place]ag [place]ag Spirit arteries arteries - [facility]I of of [facility] extremitie Ely kes s w s w Medical ulceration ulceration Ce nter Non-pressu Non-pressu Problem C ommon re chronic re chronic Sp rachelle ulcer of ulcer of - CHI other part other part St of right of right [facility] foot with foot with Medi jose unspecifie unspecifie Ce nter d severity d severity Chronic Chronic Problem Common congestive diastolic Spi rit heart CHF - CHI failure (congestiv [facility] heart [facility] failure) [facility] [id number] Stented Problem Commo n coronary Spirit artery - [facility] [id number] PAD Problem Common (periphera [facility] l artery - CHI disease) [facility] [id number] Coronary Problem Commo n artery Spirit disease - CHI involving [facility] coronary Medical artery of Center kaltag heart, unspecifie d whether angina present [id number] Oxygen Problem Commo n 07 dependent [facility] [id number] Anemia in Problem Com mon chronic Spirit illness - [facility] Allergic Non-season Problem Com mon rhinitis al Spirit allergic - [facility] Medical chronicity Center , unspecifie d trigger Dependence Dialysis Problem Com mon on renal patient Spirit dialysis - [facility] Anxiety Anxiety Problem Common about about Spirit health health - [facility] [id number] End stage Problem Comm on renal Spirit disease - [facility] Hypothyroi Hypothyroi Problem C ommon dism dism [facility] Indwelling Indwelling Problem C ommon Lemons Lemons [facility] catheter catheter - [facility] present present [facility] Recurrent Risk for Problem Comm on falls falls [facility] [id number] Pressure Problem Com mon 5106 ulcer of Spirit right [facility], [facility] Cholelithi Gall Problem Commo n asis bladder Spirit without stones - [facility] obstructio [facility] Hypertensi Hypertensi Problem C ommon on on Spirit - [facility] Type II Uncontroll Problem Comm on diabetes ed type 2 Spiri t mellitus diabetes - CHI without mellitus St complicati with [facility] on insulin Medical therapy Center Mixed Mixed Problem Common hyperlipid hyperlipid Sp rachelle emia emia - CHI [facility] Gastroesop GERD Problem Commo n hageal (gastroeso Spirit reflux phageal - CHI disease reflux St disease) [facility] Vitamin D Vitamin D Problem Com mon deficiency deficiency Sp rachelle - CHI [facility] Carpal Carpal Problem Resolve 2021-08-25 Mem oria tunnel tunnel d 22:23:46 l syndrome syndrome Jacob n (disorder) (disorder) Resolved Problem 08/25/2021 1983 [facility] Problem Resolve 2021-08-25 Memoria delivery - delivery - d 22:23:46 l delivered delivered Latoya coreas (finding) (finding) Resolved Problem 08/25/2021 1985 [facility] [...] emia demia 22:23:46 l (disorder) (disorder) Pepe tran Active Problem 08/25/2021 [facility] Paresthesi Paresthes Problem Active 2021-08-25 Memoria a ia 22:23:46 l (finding) (finding) Latoya coreas Active Problem 08/25/2021 [facility] Paresthesi Paresthes Problem Active 2021-08-25 Memoria a of hand ia of hand 22:23:46 l (finding) (finding) Latoya joss Active Problem 08/25/2021 [facility] Tremor Tremor Problem Active 2021-08-25 Jairo frida (finding) (finding) 22:23:46 l Active [place] Problem 08/25/2021 [facility] Allergies, Adverse Reactions, Alerts Allergy Allergy Status Severity Reaction(s) Onset Inactive Treating Comm ents Source Name Type Date Date Clinician CODEINE Allergy Active High [facility] 00 [place] PROMETHA Allergy Active High [facility] ZINE [facility] 00 [place] ADHESIVE Allergy Active [facility] TAPE [facility] Medical 00 [place] OXYCODON DRUG Active Hallucinates Un hellen E INGREDI 11-04 ity of 00:00: [place] 00 Medical Branch PHENERGA DRUG Active Other-Cmnt Univ ers N PLAIN 11-04 ity of 00:00: Medical Branch ADHESIVE Drug Active Rash Univers Class - ity of 00:00: Medical Branch Adhesive Propensi Active Rash Univer [...] 2000-07 [facility] 08-06 Clear 00:00: [place] 00 [facility] CODEINE DA Active U HALLUCINATIO 2000-07 [facility] N 08-06 Clear 00:00: Hernandez 00 [facility] No Known DA Active U 2000-07 [facility] Contrast 08-06 Clear Allergie 00:00: Hernandez s 00 [facility] No Known DA Active U 2000-07 [facility] Food 08-06 Clear Allergie 00:00: Hernandez s 00 [facility] No Known DA Active U 2000-07 [facility] Other 08-06 Clear Allergie 00:00: Hernandez s 00 [facility] Opioids Propensi Active Rash Hallucina Meth deonte - ty to 6-17 tions ( st Morphine adverse 00:00: [facility] Analogue reaction 00 craw over l s s to body).Oth drug er reaction( s): Anaphylax ishalluci nations NO KNOWN Drug Active Univers ALLERGIE Class ity of S [facility] prometha prometha Active Unknown Commo n zine zine Spirit - [facility] codeine codeine Active Unknown Common [facility] - [facility] codeine codeine Active Memoria l [place] Phenerga Phenerga Active Memori a n n l [place] Tape Tape Active Memoria l [place] Family History Family Member Diagnosis Comments Start Date Stop Date Source Natural mother Hyperlipidemia Method [facility] Natural mother Hypertension [facility] Natural mother Kidney disease Method [facility] Natural mother Diabetes [facility] Natural father Heart disease [facility] Natural father Hypertension [facility] Natural father [facility]ophlebitis [facility] Social History Social Habit Start Date Stop Date Quantity Comments Source History of Tobacco Common Spirit - Use [facility] Gender identity [facility] History SDOH University o f Alcohol Std Drinks [place] Medical [facility] History SDOH University o f Alcohol Binge [place] Medic al Branch History SDOH Social Unive rsity of [facility] Med ical Together Branch History SDOH Social Unive rsity of [facility] Medical Branch History SDOH Social Unive rsity of [facility] Medical Membership Branch History SDOH Social Unive rsity of [facility] Medical Meetings Branch Sexual orientation Method [...] 1 Univers ity of Worry 00:00:00 00:00:00 [place] Medical Branch History SDOH Food 2022-12-15 2022-12-15 1 Univers ity of Scarcity 00:00:00 00:00:00 [place] Medical Branch History SDOH 2022-12-15 2022-12-15 2 University o f Transport Med 00:00:00 00:00:00 [place] Medic al Branch History SDOH 2022-12-15 2022-12-15 2 University o f Transport Non-Med 00:00:00 00:00:00 [place] M edical Branch History SDOH 2022-12-15 2022-12-15 2 University o f Housing Unable to 00:00:00 00:00:00 [place] M edical Pay Branch History SDOH 2022-12-15 2022-12-15 1 University o f Housing Places 00:00:00 00:00:00 [place] Medi jose Lived Branch History SDOH 2022-12-15 2022-12-15 2 University o f Housing Homeless 00:00:00 00:00:00 Venkat Harvey dical Last Year Branch Exposure to 2022-10-25 2022-11-04 Not sure University of SARS-CoV-2 (event) 00:00:00 13:19:00 [place] [facility] History of Social 2022-10-09 2022-10-[address] function 00:00:00 00:00:00 Hospital Alcohol intake 2022-04-27 2022-04-27 Current drinker Metho dist 00:00:00 00:00:00 of alcohol Hospital (finding) Cigarettes smoked 2022-04-26 2022-04-[address] current (pack per 00:00:00 00:00:00 Hospita l day) - Reported Cigarette 2022-04-26 2022-04-26 Worship pack-years 00:00:00 00:00:00 Hospital Tobacco use and 2022-04-26 2022-04-26 Smokeless Worship exposure 00:00:00 00:00:00 tobacco non-user [facility] Social History 2021-02-23 2021-02-23 [facility] Kathie wangjoss 20:24:04 20:24:04 Alcohol Comment 2020-03-23 2020-03-23 RARELY Worship 00:00:00 00:00:00 [facility] Sex [birth year] At [birth year] Worship 00:00:00 00:00:00 [facility] Smoking Status Start Date Stop Date Source Unknown if ever smoked [facility] Never Smoker Common Spirit - [facility] Ce nter Former Smoker 2023-01-10 00:00:00 2023-01-10 00:00:00 Common S pirit - [facility] Ce nter Medications Ordered Filled Start Stop Current Ordering Indication Dosage Frequency Signature Comments Components Source Medication Medication Date Date Medication? Clinician (SIG) Name Name Santyl 250 Santyl 250 2022-07 No 1{appli QD Santyl 250 UNIT/GM UNIT/GM 0-19 cation} UNIT/GM 00:00: 00 ProSource ProSource 2022-07 No ProSource No Carb - No Carb - 0-19 No Carb - 00:00: 00 Ipratropium Ipratropium 2022-07 No 3{ml_as QID Ipratropiu -Albuterol -Albuterol 0-19 _needed m-Albutero 0.5-2.5 (3) 0.5-2.5 (3) 00:00: } l 0.5-2.5 MG/3ML MG/3ML 00 (3) MG/3ML amLODIPine amLODIPine 2022-07 No 1{table QD amLODIPine Besylate 5 Besylate 5 0-19 t} Besylate 5 MG MG 00:00: MG 00 Toprol XL Toprol XL 2022-07 No .5{tabl BID Toprol XL 25 MG 25 MG 0-19 et} 25 MG 00:00: 00 Nystatin Nystatin 2022-07 No 1{appli BID Nystatin [id number] 0-19 cation} [id number] UNIT/GM UNIT/GM 00:00: UNIT/GM 00 Cyclobenzap Cyclobenzap 2022-07 No 1{table TID Cyclobenza rine HCl 10 rine HCl 10 0-19 t_as_ne brad HCl MG MG 00:00: eded} 10 MG 00 HYDROcodone HYDROcodone 2022-07 No 1{table QID HYDROcodon -Acetaminop -Acetaminop 0-19 t_as_ne e-Acetamin hen 10-325 hen 10-325 00:00: eded} ophen MG MG 00 10-325 MG Silvadene 1 Silvadene 1 2022-07 No 1{appli BID Silvadene % % 0-19 cation} 1 % 00:00: 00 honey 80 % 2022- No [id number] 5mL Apply 5 mL Univers 12-23 to area(s) ity of 00:00: 04:59 every 48 [place] 00 :00 ([facility]) hours Branch for 10 days. honey 80 % 2022- No [id number] 5mL Apply 5 mL Univers 12-23 to area(s) ity of 00:00: 04:59 every 48 [place] 00 :00 ([facility]) hours Branch for 10 days. vancomycin 2022- No 15mg/kg 1,250 mg Univers 1,250 mg in 12-22 (rounded ity of NaCl 0.9% 19:00: 06:59 from [place] () 250 mL 00 :00 1,177.5 mg Me dical VIAL-MATE = 15 mg/kg Bran ch IV ?78.5 kg), piggyback IV Piggyback, ONCE, 1 dose, On Sun12/22/22 at 1400, Administer over 90 Minutes, 250 mL
Reas on for Anti-Infec tive: Documented Infection& lt;br>Docu mented Infection Site: Blood
D uration of Therapy: 7 days vancomycin 2022-0 2022- No 15mg/kg 1,250 mg Univers 1,250 mg in 12-22 (rounded ity of NaCl 0.9% 19:00: 06:59 from [place] (NS) 250 mL 00 :00 1,177.5 mg [...] Units ity of unit/mL 17:37: under the [place] inph 07 skin in Medical the Branch morning and 30 Units at noon and 30 Units in the evening. Sliding scale Insulin Yes 45U inject 45 Unive rs Glargine 6-16 Units ity of (LANTUS 17:37: under the [place] SOLOSTAR 07 skin in [facility] U-100 the [place] INSULIN) morning 100 unit/mL and 45 (3 mL) Units in injection the evening. buPROPion Yes 150mg Take 1 Unive rs SR 150 mg 6-16 tablet by ity o f SR tablet 17:37: mouth in [facility] 07 the Medical morning. Branch pantoprazol Yes 40mg Take 1 Univ ers e 40 mg EC 6-16 tablet by ity of tablet 17:37: mouth in [place] [address] the Medical morning. Branch Levothyroxi Yes 150ug Take 150 U nivers ne 100 mcg 6-16 mcg by ity of capsule 17:37: mouth [place] daily. Medical Branch aspirin 81 Yes 81mg Take 81 mg U nivers mg Cap 6-16 by mouth ity of 17:37: in the [place] morning. Medical Branch Cholecalcif Yes Take by Uni vers daryl, 6-16 mouth. ity of Vitamin D3, 17:37: [place] 25 [facility] 07 Medical (1,000 Branch unit) capsule folic Yes Take by Univers acid/multiv 6-16 mouth ity of it-min/lute 17:37: [place]. [place] in (CENTRUM 07 Medical SILVER Branch ORAL) vitamin 0 Yes 100ug Take 1 Univers B-12 100 6-16 tablet by ity of mcg tablet 17:37: mouth [place] 07 every Medical morning. Branch loratadine 0 Yes Univers 10 mg 6-16 ity of tablet 17:37: [place] 07 Medical Branch fenofibrate 0 Yes 200mg Take 1 Uni vers micronized 6-16 capsule by ity of 200 mg 17:37: mouth. [place] capsule Medical Branch polyethylen Yes 17g Take 1 Univ ers e glycol 6-16 Packet by ity of 3350 17 17:37: mouth. [place] gram powder Medical Branch insulin Yes 30U inject 30 Unive rs lispro 100 6-16 Units ity of unit/mL 17:37: under the [place] inph 07 skin in Medical the Branch morning and 30 Units at noon and 30 Units in the evening. Sliding scale Insulin Yes 45U inject 45 Unive rs Glargine 6-16 Units ity of (LANTUS 17:37: under the [place] SOLOSTAR 07 skin in [facility] U-100 the Branch INSULIN) morning 100 unit/mL and 45 (3 mL) Units in injection the evening. buPROPion Yes 150mg Take 1 Unive rs SR 150 mg 6-16 tablet by ity o f SR tablet 17:37: mouth in [facility] s 07 the Medical morning. Branch pantoprazol Yes 40mg Take 1 Univ ers e 40 mg EC 6-16 tablet by ity of tablet 17:37: mouth in [place] 07 the Medical morning. Branch Levothyroxi Yes 150ug Take 150 U nivers ne 100 mcg 6-16 mcg by ity of capsule 17:37: mouth daily. Medical Branch aspirin 81 0 Yes 81mg Take 81 mg U nivers mg Cap 6-16 by mouth ity of 17:37: in the morning. Medical Branch Cholecalcif 0 Yes Take by Uni vers daryl, 6-16 mouth. ity of Vitamin D3, 17:37: [place] 25 mcg 07 Medical (1,000 Branch unit) capsule folic Yes Take by Univers acid/multiv 6-16 mouth ity of it-min/lute 17:37: daily. a s in (CENTRUM 07 [facility] SILVER Branch ORAL) vitamin Yes 100ug Take 1 Univers B-12 100 6-16 tablet by ity of mcg tablet 17:37: mouth every Medical morning. Branch loratadine Yes Univers 10 mg 6-16 ity of tablet 17:37: [address] [place] [address] Branch fenofibrate 0 Yes 200mg Take 1 Uni vers micronized 6-16 capsule by ity of 200 mg 17:37: mouth. [place] capsule [address] [place] [address] Branch polyethylen Yes 17g Take 1 Univ ers e glycol 6-16 Packet by ity of 3350 17 17:37: mouth. [place] gram powder [address] [place] [address] Branch insulin Yes 30U inject 30 Unive rs lispro 100 6-16 Units ity of unit/mL 17:37: under the [place] inph 07 skin in Medical the Branch morning and 30 Units at noon and 30 Units in the evening. Sliding scale Insulin Yes 45U inject 45 Unive rs Glargine 6-16 Units ity of (LANTUS 17:37: under the [place] SOLOSTAR 07 skin in [facility] U-100 the [place] INSULIN) morning 100 unit/mL and 45 (3 mL) Units in injection the evening. buPROPion Yes 150mg Take 1 Unive rs SR 150 mg 6-16 tablet by ity o f SR tablet 17:37: mouth in [place] [address] the Medical morning. Branch pantoprazol Yes 40mg Take 1 Univ ers e 40 mg EC 6-16 tablet by ity of tablet 17:37: mouth in [place] [address] the Medical morning. Branch Levothyroxi Yes 150ug [...] by ity of mcg tablet 17:37: mouth [place] [address] every Medical morning. Branch loratadine 0 Yes Univers 10 mg 6-16 ity of tablet 17:37: [place] [address] Medical Branch fenofibrate 2022-0 Yes 200mg Take 1 Uni vers micronized 6-16 capsule by ity of 200 mg 17:37: mouth. [place] capsule Medical Branch polyethylen Yes 17g Take 1 Univ ers e glycol 6-16 Packet by ity of 3350 17 17:37: mouth. [place] gram powder Medical Branch amLODIPine 2022-2022- No 10mg Take 1 Univ ers 10 mg -16 -16 tablet by ity of tablet 16:45: 00:00 mouth in [place] 05 :00 the Medical morning. Branch furosemide 2022-2022- No 160mg Take 2 Uni vers 80 mg 6-16 -16 tablets by ity of tablet 16:45: 00:00 mouth in [place] 05 :00 the Medical morning. Branch lisinopriL 2022-0 2022- No 5mg Take 1 Univ ers 5 mg tablet -22 12-16 tablet by it y of 16:45: 00:00 mouth in [place] 05 :00 the Medical morning. Branch metoprolol 2022-0 2022- No 50mg Take 1 Univ ers succinate 6-16 -16 tablet by ity of XL 50 mg 24 16:45: 00:00 mouth in [place] hr tablet 05 :00 the Medical morning Branch and 1 tablet in the evening. multivitami 2022-0 2022- No Take by Un hellen n (MULTIPLE 6-16 -16 mouth. ity o f VITAMIN 16:45: 00:00 [place] ESSENTIAL 05 :00 Medical ORAL) Branch clopidogreL 2022-0 2022- No 75mg Take 1 Uni vers (PLAVIX) 75 6-16 -16 tablet by it y of mg tablet 16:45: 00:00 mouth in [facility] as 05 :00 the Medical morning. Branch ticagrelor 3-0 Yes 90mg 90 mg, Unive rs (BRILINTA) 6-16 Oral, BID, ity of tablet 90 13:00: First dose [place] mg 00 on Sun Medical 12/22/22 at Branch 0800, Until Discontinu ed, Routine ticagrelor 3-0 Yes 90mg 90 mg, Unive rs (BRILINTA) 6-16 Oral, BID, ity of tablet 90 13:00: First dose [place] mg 00 on Sun Medical 12/22/22 at Branch 0800, Until Discontinu ed, Routine ticagrelor 3-0 3- No [id number] 90mg Take 1 Univers 90 mg 12-22-17 tablet by ity of tablet 00:00: 04:59 mouth in [place] 00 :00 [facility] and 1 tablet in the evening. Do all this for 30 days. amLODIPine 3-0 2022- No [id number] 5mg Take 1 Univers 5 mg tablet 12-22- tablet by it y of 00:00: 04:59 mouth in [place] 00 :00 [facility] for 30 days. ticagrelor 3-0 2022- No [id number] 90mg Take 1 Univers 90 mg 12-22- tablet by ity of tablet 00:00: 04:59 mouth in [place] 00 :00 [facility] and 1 tablet in the evening. Do all this for 30 days. amLODIPine 3-0 2022- No [id number] 5mg Take 1 Univers 5 mg tablet 12-22 tablet by it y of 00:00: 04:59 mouth in [place] 00 :00 [facility] for 30 days. FENTanyl PF 3-0 Yes [...] Routine, Pain (scale 4-6), PACU FENTanyl PF 2022- Yes 25ug 25 mcg, Uni vers (SUBLIMAZE 6-15 Slow IV ity of (PF)) 21:51: Push, [place] injection 46 Q5MIN PRN, Medi jose 25 mcg 4 doses, Branch Starting on Krystle 12/21/22 at 1651, Until Discontinu ed, Routine, Pain (scale 7-10), PACU FENTanyl PF Yes 25ug 25 mcg, Uni vers (SUBLIMAZE [...] Starting ity of (HEPARIN 21:22: 21:52 on [facility] LOCKFLUSH(P 00 :17 12/21/22 at [place] dical ORCINE)(PF) 1622, Branch ) 100 Until Krystle unit/mL 12/21/22 at injection 1652, Routine, Intra-op bupivacaine 2022- No PRN, Unive rs (preserv 12-21 Starting ity of free) 21:18: 21:52 on [facility] (SENSORCAIN 00 :17 12/21/22 at Tx dical E MPF) 0.25 1618, Branch % (2.5 Until Krystle mg/mL) 12/21/22 at injection 1652, Routine, Intra-op NaCl 0.9% 2022- No PRN, Univers (NS) 12-21 Starting ity of injection 21:17: 21:52 on [facility] 00 :17 12/21/22 at Medical 1617, Branch Until Sun12/21/22 at 1652, Routine, Intra-op heparin Yes 2000U PRN - SEE Univ ers 1,000 12-21 INSTRUCTIO ity of unit/mL 16:04: NS, [place] injection 44 Starting Medica l 2,000 Units on Krystle [place] 12/21/22 at 1104, Until Discontinu ed, Routine
For Priming of Ports:&nbs p; &n bsp; After initial saline flush, prime each port with heparin according to the priming volume listed on each catheter port for catheter lock.
heparin Yes 2000U PRN - SEE Univ ers 1,000 12-21 INSTRUCTIO ity of unit/mL 16:04: NS, [place] injection 44 Starting Medica l 2,000 Units on [place]rystle [place] 12/21/22 at 1104, Until Discontinu ed, Routine
For Priming of Ports:&nbs p; &n bsp; After initial saline flush, prime each port with heparin according to the priming volume listed on each catheter port for catheter lock.
honey 2022- No Topical, Univers (MEDIHODAYKIN 12-21 Q48H, 7 ity o f (HONEY)) 80 15:00: 14:59 doses, [place] as % topical 00 :00 First dose Medi jose gel (after Branch last modificati on) on Krystle 12/21/22 at 1000, Last dose on Sun01/02/23 at 1000, Routine honey 2022- No Topical, Univers (MEDIHONEY 12-21 Q48H, 7 ity o f (HONEY)) 80 15:00: 14:59 doses, [place] as % topical 00 :00 First dose Medi jose gel (after Branch last modificati on) on Sun12/21/22 at 1000, Last dose on Sun01/02/23 at 1000, Routine dicyclomine Yes 20mg 20 mg, Univ ers (BENTYL) 12-21 Oral, ity of tablet 20 05:09: QIDPRN, [place] mg 02 Starting Medical on [place]le Branch 12/21/22 at 0009, Until Discontinu ed, Routine, Abdominal pain dicyclomine 2022-0 Yes 20mg 20 mg, [facility] (BENTYL) 15 Oral, ity of tablet 20 05:09: QIDPRN, [place] mg 02 Starting Medical on [place] Branch 12/21/22 at 0009, Until Discontinu ed, Routine, Abdominal pain heparin 2022-0 Yes 2000U PRN - SEE [facility] ers 1,000 12-19 INSTRUCTIO ity of unit/mL 21:51: NS, [place] injection 05 Starting Medica l 2,000 Units on [facility] Branch 12/19/22 at 1651, Until Discontinu ed, Routine
For Priming of Ports:&nbs p; &n bsp; After initial saline flush, prime each port with heparin according to the priming volume listed on each catheter port for catheter lock.
heparin 2022-0 Yes 2000U PRN - SEE [facility] ers 1,000 12-19 INSTRUCTIO ity of unit/mL 21:51: NS, [place] injection 05 Starting Medica l 2,000 Units on [facility] Branch 12/19/22 at 1651, Until Discontinu ed, Routine
For Priming of Ports:&nbs p; &n bsp; After initial saline flush, prime each port with heparin according to the priming volume listed on each catheter port for catheter lock.
diphenhydrA 2022-0 Yes 25mg 25 mg, [facility] MINE 12-19 Oral, ity of (BENADRYL) 09:29: Q4HPRN, [place] tablet 25 48 Starting Medica l mg on [facility] Branch 12/19/22 at 0429, Until Discontinu ed, Routine, Itching diphenhydrA 2022-0 Yes 25mg 25 mg, [facility] MINE 12-19 Oral, ity of (BENADRYL) 09:29: Q4HPRN, [place] tablet 25 48 Starting Medica l mg on [facility] Branch 12/19/22 at 0429, Until Discontinu ed, Routine, Itching heparin 2022-0 2023- No [id number] 2800U ONCE, 1 Univers 1,000 12-18 dose, On ity of unit/mL 17:15: 18:47 Mon [place] injection 00 :00 12/18/22 at Medi jose 2,800 Units 1215, Branch Routine
Catheter packing
simethicone 2022-0 Yes 80mg 80 mg, Univ ers (GAS RELIEF 6-11 Oral, ity of (SIMETHICON 18:00: PC+HS, [place] E)) 00 First dose Medical chewable on Sun Branch tablet 80 12/17/22 at mg 1300, Until Discontinu ed, Routine simethicone 2022-0 Yes 80mg 80 mg, Univ ers (GAS RELIEF 6-11 Oral, ity of [...] uration of Therapy: 14 days ceFAZolin 2022- No 1000mg 1,000 mg, Univers [...]
D uration of Therapy: 14 days epoetin 2023-0 Yes 8000U 8,000 Univers vanesa-epbx 6-10 Units, ity of (RETACRIT) 11:45: [place]cut[place]o [place] injection 00 us, Medical 8,000 Units QMON/WED/F Br anch [place] AT 1999, First dose on 12/16/22 at 0745, Until Discontinu ed, Routine
membership counselor approving Restricted medication : AQUILINO MORALES epoetin 2022-0 Yes 8000U 8,000 Univers vanesa-epbx 6-10 Units, ity of (RETACRIT) 11:45: Subcut[place]o [place] injection 00 us, Medical 8,000 Units QMON/WED/F Br anch [place] AT 1999, First dose on 12/16/22 at 0745, Until Discontinu ed, Routine
membership counselor approving Restricted medication : AQUILINO MORALES levothyroxi 0 Yes 150ug 150 mcg, U nivers ne 6-10 Oral, ity of (SYNTHROID) 11:00: QAM-0600, [place] tablet 150 00 First dose Med ical mcg on Sat Branch 12/16/22 at 0600, Until Discontinu ed, Routine levothyroxi 0 Yes 150ug 150 mcg, U nivers ne 6-10 Oral, ity of (SYNTHROID) 11:00: QAM-0600, [place] tablet 150 00 First dose Med ical mcg on Sat Branch 12/16/22 at 0600, Until Discontinu ed, Routine Vancomycin 0 2022- No 750mg 750 mg, IV Univers 750 mg in 12-16- Piggyback, ity of NaCl 0.9% 03:00: 03:48 ONCE, 1 [place] (NS) 250 mL 00 :00 dose, On Medi jose VIAL-MATE Sun12/15/22 Bran ch at 2200, Administer over 60 Minutes, 250 mL
R miguel ángel for Anti-Infec tive: Documented Infection< br>Documen matthew Infection Site: Blood
D uration of Therapy: 14 days morpHINE (4 0 Yes 4mg 4 mg, Slow Univers mg/mL) 6-10 IV Push, ity of injection 4 02:04: Q4HPRN, [place] mg 42 Starting Medical on Sun Branch 12/15/22 at 2104, Until Discontinu ed, Routine, Pain (scale 7-10) morpHINE (4 0 Yes 4mg 4 mg, Slow Univers mg/mL) 6-10 IV Push, ity of injection 4 02:04: Q4HPRN, [place] mg 42 Starting Medical on Sun Branch 12/15/22 at 210, Until Discontinu ed, Routine, Pain (scale 7-10) [...] vomiting not responsive to Zofran metroNIDAZO 0 2022- No 500mg 500 mg, IV Univers LE in NaCl 610 06-10 Infusion, ity of (iso-os) 02:00: 17:45 [...] br>Duratio n of therapy: 5 days ondansetron 0 Yes 4mg 4 mg, Slow [...] monitoring is advisable.
heparin 0 2022- No [id number] 4300U DIALYSIS Univers 1,000 12-15 06-10 ONCE - PT ity of unit/mL 22:45: [...] 12/15/22 at 0900, Until Discontinu ed, Routine loratadine 2022-0 Yes 10mg 10 mg, Unive rs (CLARITIN) 12-15 Oral, ity of tablet 10 14:00: DAILY, [place] mg 00 First dose Medical on Sun Branch 12/15/22 at 0900, Until Discontinu ed, Routine cholecalcif 0 Yes 1000U 1,000 Univ ers daryl 12-15 [...] 12-15 Oral, ity of mg 14:00: DAILY, First dose Medical on Sun Branch 12/15/22 at 0900, Until Discontinu ed polyethylen Yes 17g 17 g, Unive rs e glycol 12-15 Oral, ity of 3350 powder 14:00: DAILY, [place] 17 g 00 First dose Medical on Sun Branch 12/15/22 at 0900, Until Discontinu ed, Routine loratadine Yes 10mg 10 mg, Unive rs (CLARITIN) 12-15 Oral, ity of tablet 10 14:00: DAILY, [place] mg 00 First dose Medical on Sun Branch 12/15/22 at 0900, Until Discontinu ed, Routine cholecalcif 0 Yes 1000U 1,000 Univ ers daryl 12-15 [...] 12-15 Oral, ity of mg 14:00: DAILY, 00 First dose Medical on Sun Branch 12/15/22 at 0900, Until Discontinu ed docusate 2022-0 Yes 100mg 100 mg, Unive rs (COLACE) 12-15 Oral, BID, ity o f capsule 100 13:00: First dose [place] mg 00 on Sun Medical 12/15/22 at [place] 0800, Until Discontinu ed, Routine docusate Yes 100mg 100 mg, Unive rs (COLACE) 6-09 Oral, BID, ity o f capsule 100 13:00: First dose [place] mg 00 on Sun [facility] 12/15/22 at [place] 0800, Until Discontinu ed, Routine vancomycin 2022- [...] heparin 0 Yes 5000U 5,000 Univers (porcine) 6-09 Units, ity of injection 11:00: [place]cut[place]o [place] 5,000 Units 00 us, Q8H, [facility] First dose Branch on Sun12/15/22 at 0600, Until Discontinu ed, Routine heparin 0 Yes 5000U 5,000 Univers (porcine) 6-09 Units, ity of injection 11:00: [place]cut[place]o [place] 5,000 Units 00 us, Q8H, [facility] First dose Branch on Sun12/15/22 at 0600, Until Discontinu ed, Routine insulin 0 Yes 30U inject 30 Unive rs lispro 100 6-09 Units ity of unit/mL 07:43: under the [place] in 43 skin in [facility] morning and 30 Units at noon and 30 Units in the evening. Sliding scale Insulin 0 Yes 45U inject 45 Unive rs Glargine 6-09 Units ity of (LANTUS 07:43: under the [place] SOLOSTAR 43 skin in [facility] U-100 [facility] INSULIN) morning 100 unit/mL and 45 (3 mL) Units in injection the evening. amLODIPine 2023-0 Yes 10mg Take 1 Unive rs 10 mg 6-09 tablet by ity of tablet 07:43: mouth in [place] [address] the Medical morning. Branch buPROPion 2022-0 Yes 150mg Take 1 Unive rs SR 150 mg 6-09 tablet by ity o f SR tablet 07:43: mouth in [facility] 43 the Medical morning. Branch furosemide 2022-0 Yes 160mg Take 2 Univ ers 80 mg 6-09 tablets by ity of tablet 07:43: mouth in [place] [address] the Medical morning. Branch lisinopriL 2022-0 Yes 5mg Take 1 Unive rs 5 mg tablet 6-09 tablet by ity of 07:43: mouth in [place] [address] the Medical morning. Branch metoprolol 2022-0 Yes 50mg Take 1 Unive rs succinate 6-09 tablet by ity o f XL 50 mg 24 07:43: mouth in [place] hr tablet 43 the Medical morning Branch and 1 tablet in the evening. pantoprazol 2022-0 Yes 40mg Take 1 Univ ers e 40 mg EC 6-09 tablet by ity of tablet 07:43: mouth in [place] [address] the Medical morning. Branch Levothyroxi 2022-0 Yes 150ug Take 150 U nivers ne 100 mcg 6-09 mcg by ity of capsule 07:43: mouth [place] [address] daily. Medical Branch aspirin 81 2022-0 Yes 81mg Take 81 mg U nivers mg Cap 6-09 by mouth ity of 07:43: in the [place] [address] morning. Medical Branch Cholecalcif 0 Yes Take by Uni vers daryl, 6-09 mouth. ity of Vitamin D3, 07:43: [place] 25 [facility] 43 Medical (1,000 Branch unit) capsule folic 2022-0 Yes Take by Univers acid/multiv 6-09 mouth ity of it-min/lute 07:43: [facility]. [facility] Medical SILVER Branch ORAL) vitamin 2022-0 Yes 100ug Take 1 Univers B-12 100 6-09 tablet by ity of mcg tablet 07:43: mouth [place] [address] every Medical morning. Branch loratadine 2022-0 Yes Univers 10 mg 6-09 ity of tablet 07:43: [place] 43 Medical Branch multivitami 2022-0 Yes Take by Uni vers n (MULTIPLE 6-09 mouth. ity of VITAMIN 07:43: [place] ESSENTIAL 43 Medical ORAL) Branch fenofibrate Yes 200mg Take 1 Uni vers micronized 12-15 capsule by ity of 200 mg 07:43: mouth. [place] capsule 43 Medical Branch polyethylen Yes 17g Take 1 Univ ers e glycol 12-15 Packet by ity of 3350 17 07:43: mouth. [place] gram powder 43 Medical Branch clopidogreL Yes 75mg Take 1 Univ ers (PLAVIX) 75 12-15 tablet by ity of mg tablet 07:43: mouth in [facility] 43 the morning. Branch NORepinephr 2022- No .05ug/k 0.05-0.5 Univers ine 4 mg in 12-15 06-10 g/min mcg/kg/min ity of 0.9% NaCl 07:34: 07:33 ?77 kg [place] 250 mL 23 :23 (14.4375-1 Medical infusion [...] 00 on Sun Medical (HumaLOG) 12/15/22 at Branc h 0000, Until Discontinu ed, Routine Sliding Yes Subcutaneo Univ ers Scale 6-09 us, Q6H, ity of Insulin - 05:00: First dose [place] Lispro 00 on Sun Medical (HumaLOG) 12/15/22 at Branc h 0000, Until Discontinu ed, Routine NaCl 0.9% 2022- No 1000mL at 999 Uni vers (NS) bolus 12-15 mL/hr, ity of infusion 04:45: 05:55 1,000 mL, [place] as 1,000 mL 00 :48 IV Medical Infusion, Branch ONCE, 1 dose, On Krystle 12/14/22 at 2345, STAT pantoprazol 2022- No 40mg 40 mg, Uni vers e 12-15 Slow IV ity of (PROTONIX) 04:00: 03:04 Push, [place] injection 00 :00 Q24H, 3 Medical 40 mg doses, Branch First dose on Krystle 12/14/22 at 2300, Last dose on Sun12/16/22 at 2300 potassium 2022-2022- No 10meq 10 mEq, IV Univers chloride in 12-15 Piggyback, i ty of water 10 04:00: 11:36 Q1H, 3 [place] mEq/100 mL 00 :00 doses, Medical RTU 10 mEq First dose [facility] on Sun12/14/22 at 2300, Last dose on Sun12/15/22 at 0100, Administer over 60 Minutes, 100 mL glucagon 2022-0 Yes 1mg 1 mg, Univers (GLUCAGEN 12-15 Intramuscu ity of DIAGNOSTIC 03:59: lar, PRN, [place] KIT) 49 Starting Medical injection 1 on Krystle [facility] 12/14/22 at 2259, Until Discontinu ed, VIOLETTA, [...] KIT) 49 Starting Medical injection 1 on [facility] 12/14/22 at 2259, Until Discontinu ed, VIOLETTA, [...] mg, IV Univers n in D5W 12-15 Piggyback, ity of (LEVAQUIN) 03:00: 17:45 Q24H [...] ENEMA) 00 :00 dose, On Medical (COMPOUNDED [facility] 12/14/22 Br anch ) Enem 225 at 2115, mL Routine glycerin 0 Yes 1{suppo 1 Univer s (adult) 12-15 sitory} Suppositor ity of (FLEET 01:30: y, Rectal, [place] GLYCERIN 00 DAILY, Medical (ADULT)) First dose Branc h suppository on Krystle 12/14/22 at Suppository 2030, Until Discontinu ed, Routine glycerin 0 Yes 1{suppo 1 Univer s (adult) 12-15 sitory} Suppositor ity of (FLEET 01:30: y, Rectal, [place] GLYCERIN 00 DAILY, Medical (ADULT)) First dose Branc h suppository on [facility] 12/14/22 at Suppository 2030, Until Discontinu ed, Routine acetaminoph 2022- No 500mg 500 mg, U nivers en 12-15 Oral, ity of (TYLENOL) 01:00: 00:03 ONCE, 1 [place] tablet 500 00 :00 dose, On Medic al mg [facility] 12/14/22 Branch at 2000, Routine ketorolac 2022- No 15mg 15 mg, Unive rs (TORADOL) 12-15 Slow IV ity of injection 00:45: 00:32 Push, [place] 15 mg 00 :00 ONCE, 1 Medical dose, On Branch [facility] 12/14/22 at 1945, Routine ceFEPIme 2022- No 1g 1 g, IV Unive rs (MAXIPIME) 12-15 Piggyback, it y of 1 g in NaCl 00:15: 00:02 ONCE, 1 [place] 0.9% (NS) 00 :00 dose, On Medica l 50 mL [facility] 12/14/22 [place] MINI-BAG at 1915, Administer over 30 Minutes, 50 mL
Reas on for Anti-Infec tive: Documented Infection< br>Documen matthew Infection Site: Skin / Soft Tissue< br>Duratio n of Therapy: 7 days ondansetron 2022-0 2022- No 4mg 4 mg, Slow Univers (ZOFRAN 12-14 06-08 IV Push, ity of (PF)) 23:15: 23:32 ONCE, 1 [place] injection 4 00 :00 dose, On Medi jose mg Krystle 12/14/22 Branch at 1815, VIOLETTA mupirocin Yes Nasal, Univer s (BACTROBAN 5-02 Q12H, For ity of NASAL OINT) 18:45: 5 days, [place] as 2 % nasal 33 First dose Medi jose ointment conditiona Branc h l, Routine insulin Yes 30U inject 30 Unive rs lispro 100 5-02 Units ity of unit/mL 17:42: under the [place] in 52 skin in Medical the Branch morning and 30 Units at noon and 30 Units in the evening. Sliding scale Insulin 2022- Yes 45U inject 45 Unive rs Glargine 5-02 Units ity of (LANTUS 17:42: under the [place] SOLOSTAR 52 skin in [facility] U-100 the [place] INSULIN) morning 100 unit/mL and 45 (3 mL) Units in injection the evening. amLODIPine Yes 10mg Take 1 Unive rs 10 mg 5-02 tablet by ity of tablet 17:42: mouth in [place] [address] the Medical morning. Branch buPROPion 0 Yes 150mg Take 1 Unive rs SR 150 mg 5-02 tablet by ity o f SR tablet 17:42: mouth in [place] [address] the Medical morning. Branch furosemide 0 Yes 160mg Take 2 Univ ers 80 mg 5-02 tablets by ity of tablet 17:42: mouth in [place] [address] the Medical morning. Branch lisinopriL 0 Yes 5mg Take 1 Unive rs 5 mg tablet 5-02 tablet by ity of 17:42: mouth in [place] [address] the Medical morning. Branch metoprolol 0 Yes 50mg Take 1 Unive rs succinate 5-02 tablet by ity o f XL 50 mg 24 17:42: mouth in [place] hr tablet 52 the Medical morning Branch and 1 tablet in the evening. pantoprazol Yes 40mg Take 1 Univ ers e 40 mg EC 5-02 tablet by ity of tablet 17:42: mouth in [place] [address] the Medical morning. Branch Levothyroxi Yes 150ug Take 150 U nivers ne 100 mcg 5-02 mcg by ity of capsule 17:42: mouth [place] [address] daily. Medical Branch aspirin 81 0 Yes 81mg Take 81 mg U nivers mg Cap 5-02 by mouth ity of 17:42: in the [place] [address] morning. Medical Branch Cholecalcif Yes Take by Uni vers daryl, 5-02 mouth. ity of Vitamin D3, 17:42: [place] 25 [facility] Medical (1,000 Branch unit) capsule folic Yes Take by Univers acid/multiv 5-02 mouth ity of it-min/lute 17:42: [facility]. [facility] Medical SILVER Branch ORAL) vitamin 0 Yes 100ug Take 1 Univers B-12 100 5-02 tablet by ity of mcg tablet 17:42: mouth [place] [address] every Medical morning. Branch loratadine Yes Univers 10 mg 5-02 ity of tablet 17:42: [place] [address] Medical Branch multivitami 0 Yes Take by Uni vers n (MULTIPLE 5-02 mouth. ity of VITAMIN 17:42: [place] [address] Medical ORAL) Branch fenofibrate Yes 200mg Take 1 Uni vers micronized 5-02 capsule by ity of 200 mg 17:42: mouth. [place] capsule Medical Branch polyethylen 0 Yes 17g Take 1 Univ ers e glycol 5-02 Packet by ity of 3350 17 17:42: mouth. [place] gram powder Medical Branch clopidogreL Yes 75mg Take 1 Univ ers (PLAVIX) 75 5-02 tablet by ity of mg tablet 17:42: mouth in [facility] 52 the Medical morning. Branch insulin Yes 30U inject 30 Unive rs lispro 100 5-02 Units ity of unit/mL 17:42: under the [place] in 52 skin in Medical the Branch morning and 30 Units at noon and 30 Units in the evening. Sliding scale Insulin 0 Yes 45U inject 45 Unive rs Glargine 5-02 Units ity of (LANTUS 17:42: under the [place] SOLOSTAR 52 skin in Medical U-100 the Branch INSULIN) morning 100 unit/mL and 45 (3 mL) Units in injection the evening. amLODIPine 2022-0 Yes 10mg Take 1 Unive rs 10 mg 5-02 tablet by ity of tablet 17:42: mouth in [place] [address] the Medical morning. Branch buPROPion 2022-0 Yes 150mg Take 1 Unive rs SR 150 mg 5-02 tablet by ity o f SR tablet 17:42: mouth in [place] [address] the Medical morning. Branch furosemide 2022-0 Yes 160mg Take 2 Univ ers 80 mg 5-02 tablets by ity of tablet 17:42: mouth in [place] [address] the Medical morning. Branch lisinopriL 2022-0 Yes 5mg Take 1 Unive rs 5 mg tablet 5-02 tablet by ity of 17:42: mouth in [place] [address] the Medical morning. Branch metoprolol 2022-0 Yes 50mg Take 1 Unive rs succinate 5-02 tablet by ity o f XL 50 mg 24 17:42: mouth in [place] hr tablet 52 the Medical morning Branch and 1 tablet in the evening. pantoprazol 2022-0 Yes 40mg Take 1 Univ ers e 40 mg EC 5-02 tablet by ity of tablet 17:42: mouth in [place] [address] the Medical morning. Branch Levothyroxi 0 Yes 150ug Take 150 U nivers ne 100 mcg 5-02 mcg by ity of capsule 17:42: mouth [place] [address] daily. Medical Branch aspirin 81 2022-0 Yes 81mg Take 81 mg U nivers mg Cap 5-02 by mouth ity of 17:42: in the [place] [address] morning. Medical Branch Cholecalcif 2022-0 Yes Take by Uni vers daryl, 5-02 mouth. ity of Vitamin D3, 17:42: [place] 25 [facility] 52 Medical (1,000 Branch unit) capsule folic 2022-0 Yes Take by Univers acid/multiv 5-02 mouth ity of it-min/lute 17:42: daily. [place] in (CENTRUM 52 Medical SILVER Branch ORAL) vitamin 3-0 Yes 100ug Take 1 Univers B-12 100 5-02 tablet by ity of mcg tablet 17:42: mouth [place] [address] every Medical morning. Branch loratadine 2022-0 Yes Univers 10 mg 5-02 ity of tablet 17:42: [place] [address] Medical Branch multivitami Yes Take by Uni vers n (MULTIPLE 5-02 mouth. ity of VITAMIN 17:42: [place] ESSENTIAL Medical ORAL) Branch fenofibrate Yes 200mg Take 1 Uni vers micronized 5-02 capsule by ity of 200 mg 17:42: mouth. [place] capsule Medical Branch polyethylen 0 Yes 17g Take 1 Univ ers e glycol 5-02 Packet by ity of 3350 17 17:42: mouth. [place] gram powder Medical Branch clopidogreL Yes 75mg Take 1 Univ ers (PLAVIX) 75 5-02 tablet by ity of mg tablet 17:42: mouth in [place] [address] the Medical morning. Branch mupirocin 2 Yes [id number] .5g Use 0.5 g Univers % nasal 5-02 in each ity of ointment 00:00: nostril [place] [address] every 12 Medical (twelve) Branch hours. mupirocin 2 Yes [id number] .5g Use 0.5 g Univers % nasal 5-02 in each ity of ointment 00:00: nostril [place] [address] every 12 Medical (twelve) Branch hours. mupirocin 2 Yes [id number] .5g Use 0.5 g Univers % nasal 5-02 in each ity of ointment 00:00: nostril [place] 00 every 12 Medical (twelve) Branch hours. mupirocin 2 2022- No [id number] .5g Use 0.5 g Univers % nasal 5-02 06-16 in each ity of ointment 00:00: 00:00 nostril [place] 00 :00 every 12 Medical (twelve) Branch hours. atorvastati 2022- No [id number] 40mg Take 1 Univers n 40 mg 5-02 06-02 tablet by ity of tablet 00:00: 04:59 mouth at [place] 00 :00 bedtime Medical for 30 Branch days. atorvastati 2022- No [id number] 40mg Take 1 Univers n 40 mg 5-02 06-02 tablet by ity of tablet 00:00: 04:59 mouth at [place] 00 :00 bedtime Medical for 30 Branch days. mupirocin Yes [id number] Uni vers (BACTROBAN 11-06 ity of OINT) 2 % 19:00: [place] skin 00 Medical ointment Branch heparin 2022- No [id number] 4600U DIALYSIS Univers 1,000 11-06 ONCE - PT ity of unit/mL 15:15: 16:26 ROOM, 1 [place] injection 00 :00 dose, On Medica l 4,600 Units 11/06/22 Br anch at 1015, Routine
A port : 2.3 ml V port : 2.3 ml To verónica: 4.6 ml
sulfur 2022- No [id number] 5mL 5 mL, Unive rs hexafluorid 11-05 04-30 Intravenou i ty of e microsphr 15:15: 15:15 s, ONCE, 1 [place] (LUMASON) 00 :00 dose, On Medica l injection 5 Sun Branch mL 11/05/22 at 1015, Routine
membership counselor approving Restricted medication : KIMEBRLY TORRES polyethylen Yes 17g 17 g, Unive rs e glycol 4-30 Oral, ity of 3350 powder 14:00: DAILY, [place] 17 g 00 First dose Medical on [facility] 11/05/22 at 0900, Until Discontinu ed, Routine pantoprazol Yes 40mg 40 mg, Univ ers e 4-30 Oral, ity of (PROTONIX) 14:00: DAILY, [place] EC tablet 00 First dose Medi jose 40 mg on [place] Branch 11/05/22 at 0900, Until Discontinu ed, Routine lisinopriL Yes 5mg 5 mg, Univer s (PRINIVIL,Z 4-30 Oral, ity of ESTRIL) 14:00: DAILY, [place] tablet 5 mg 00 First dose Me dical on [place] Branch 11/05/22 at 0900, Until Discontinu ed, Routine furosemide Yes 160mg 160 mg, Uni vers (LASIX) 4-30 Oral, ity of tablet 160 14:00: DAILY, [place] mg 00 First dose Medical on [facility] 11/05/22 at 0900, Until Discontinu ed, Routine clopidogreL Yes 75mg 75 mg, [facility] ers (PLAVIX) 75 4-30 Oral, ity of mg tablet 14:00: DAILY, [place] 75 mg 00 First dose Medical on [facility] 11/05/22 at 0900, Until Discontinu ed, Routine buPROPion Yes 150mg 150 mg, [facility] ers SR 4-30 Oral, ity of (WELLBUTRIN 14:00: DAILY, [place] SR) tablet 00 First dose Med ical 150 mg on [facility] 11/05/22 at 0900, Until Discontinu ed, Routine aspirin EC Yes 81mg 81 mg, Unive rs tablet 81 4-30 Oral, ity of mg 14:00: DAILY, [place] 00 First dose Medical on [facility] 11/05/22 at 0900, Until Discontinu ed Sliding Yes Subcutaneo [facility] ers Scale 4-30 us, TID ity of Insulin - 13:00: MEALS+HS, [place] Lispro 00 First dose Medical (HumaLOG) on [facility] 11/05/22 at 0800, Until Discontinu ed, Routine sevelamer Yes 800mg 800 mg, [facility] ers (RENVELA) 4-30 Oral, TID ity o f tablet 800 13:00: MEALS, [place] mg 00 First dose Medical on [facility] 11/05/22 at 0800, Until Discontinu ed, Routine psyllium Yes 1{packe 1 Packet, U nivers husk 4-30 t} Oral, BID, ity of (METAMUCIL 13:00: First dose [place] (SUGAR 00 on Sun Medical FREE)) 3.4 11/05/22 at [facility] gram oral 0800, powder Until packet 1 Discontinu Packet ed, Routine cholecalcif 0 Yes 2000U 2,000 [facility] ers daryl 4-30 Units, ity of (vitamin 13:00: Oral, BID [place] D3) tablet 00 MEALS, Medical 2,000 Units First dose Br anch on 11/05/22 at 0800, Until Discontinu ed glucagon Yes 1mg 1 mg, Univers (GLUCAGEN 4-30 Intramuscu ity of DIAGNOSTIC 12:13: [place], PRN, [place] KIT) 03 Starting Medical injection 1 on Sun [place] mg 11/05/22 at 0713, Until Discontinu ed, [...] 40 Starting Medi jose tablet 1 on [facility] tablet 11/04/22 at 2103, Until Discontinu ed, Routine, Pain (scale 7-10) traMADoL 0 Yes 50mg 50 mg, Univers (ULTRAM) 4-30 Oral, ity of tablet 50 02:03: Q6HPRN, [place] mg 11 Starting Medical on [facility] Branch 11/04/22 at 2103, Until Discontinu ed, Routine, Pain (scale 4-6) atorvastati Yes 40mg 40 mg, Univ ers n (LIPITOR) 4-30 Oral, QHS, it y of tablet 40 02:00: [place] 00 on [facility] 11/04/22 at Branch 2100, Until Discontinu ed, Routine metoprolol Yes 50mg 50 mg, Unive rs succinate 4-30 Oral, BID, ity of XL (TOPROL 01:45: [place] dose [place] XL) tablet 00 on [facility] Medical 50 mg 11/04/22 at Branch 2045, Until Discontinu ed, Routine potassium 2022- No 10meq 10 mEq, IV Univers chloride in 11-04 Piggyback, i ty of water 10 22:15: 00:08 ONCE, 1 [place] mEq/100 mL 00 :00 dose, On Medic al RTU 10 mEq [facility] 11/04/22 at 1715, Administer over 60 Minutes, 100 mL acetaminoph Yes 650mg 650 mg, Un hellen en 11-04 Oral, ity of (TYLENOL) 21:56: Q6HPRN, [place] tablet 650 18 Starting Medic al mg on [facility] 11/04/22 at 1656, Until Discontinu ed, Routine, Pain (scale 1-3) KCL 2022- No 20meq 20 mEq, Univers (KLOR-CON 11-04 Oral, ity of M20) tablet 21:30: 22:08 ONCE, 1 [place] 20 mEq 00 :00 dose, On Medical [facility] 11/04/22 at 1630, VIOLETTA FENTanyl PF 2022- No 25ug 25 mcg, Un hellen (SUBLIMAZE 11-04 Slow IV ity o f (PF)) 20:45: 20:53 Push, [place] injection 00 :00 ONCE, 1 Medical 25 mcg dose, On Branch 11/04/22 at 1545, STAT sevelamer 2022-0 Yes 3200mg Take 4 Univ ers 800 mg 1-03 tablets by ity of tablet 00:00: mouth. [place] [facility] sevelamer 2022-0 Yes 3200mg Take 4 Univ ers 800 mg 1-03 tablets by ity of tablet 00:00: mouth. [place] [facility] sevelamer 2022-0 Yes 3200mg Take 4 Univ ers 800 mg 1-03 tablets by ity of tablet 00:00: mouth. [place] [facility] sevelamer 2022-0 Yes 3200mg Take 4 Univ ers 800 mg 1-03 tablets by ity of tablet 00:00: mouth. [place] [facility] sevelamer 2022-0 Yes 3200mg Take 4 Univ ers 800 mg 1-03 tablets by ity of tablet 00:00: mouth. [address] sevelamer 2022-0 Yes 3200mg Take 4 Univ ers 800 mg 1-03 tablets by ity of tablet 00:00: mouth. [address] buPROPion 2021-07 Yes 150mg Q.5D Take [...] by st (WELLBUTRIN 12:56: mouth 2 Hos tnea SR) 150 MG 00 (two) l 12 [...] daily. l (2,000 unit) capsule capsule loratadine 2022-1 Yes 10mg QD Take 10 mg M [...] C 00 daily. l (DIALYVITE ORAL) famotidine 2021-07- No 40mg QD Take 40 [...] needed for l heartburn. traMADoL 2021-07 No [id number] 50mg Q8H Take 1 Metho di (Ultram) 50 0-19 10-25 tablet (50 s t mg tablet 00:00: 04:59 mg total) Ho spita 00 :00 by mouth l every 8 (eight) hours as needed for moderate pain for up to 5 days .acute pain. traMADoL 2021-07 [id number] 50mg Q8H Take 1 Metho di (Ultram) 50 0-19 10-25 tablet (50 s t mg tablet 00:00: 04:59 mg total) Ho spita 00 :00 by mouth l every 8 (eight) hours as needed for moderate pain for up to 5 days .acute pain. traMADoL 2021-07 [id number] 50mg Q8H Take 1 Metho di (Ultram) 50 0-19 10-25 tablet (50 s t mg tablet 00:00: 04:59 mg total) Ho spita 00 :00 by mouth l every 8 (eight) hours as needed for moderate pain for up to 5 days .acute pain. traMADoL 2021-07 [id number] 50mg Q8H Take 1 Metho di (Ultram) 50 0-19 10-25 tablet (50 s t mg tablet 00:00: 04:59 mg total) Ho spita 00 :00 by mouth l every 8 (eight) hours as needed for moderate pain for up to 5 days .acute pain. traMADoL 2021-07 [id number] 50mg Q8H Take 1 Metho di (Ultram) 50 0-19 10-25 tablet (50 s t mg tablet 00:00: 04:59 mg total) Ho spita 00 :00 by mouth l every 8 (eight) hours as needed for moderate pain for up to 5 days .acute pain. traMADoL 2021-07 [id number] 50mg Q8H Take 1 Metho di (Ultram) [...] to 5 days .acute pain. traMADoL 2021-07 [id number] 50mg Q8H Take 1 Metho di (Ultram) 50 0-19 10-25 tablet (50 s t mg tablet 00:00: 04:59 mg total) Ho spita 00 :00 by mouth l every 8 (eight) hours as needed for moderate pain for up to 5 days .acute pain. traMADoL 2021-07 [id number] 50mg Q8H Take 1 Metho di (Ultram) [...] tena 00 by mouth l nightly. famotidine 2021-1 Yes 40mg QD Take 1 Metho di (PEPCID) 40 0-02 tablet (40 st MG tablet 00:00: mg total) Hos tena 00 by mouth l nightly. famotidine 2-1 Yes 40mg QD Take 1 Metho di (PEPCID) 40 0-02 tablet (40 st MG tablet 00:00: mg total) Hos tena 00 by mouth l nightly. famotidine 2021-1 Yes 40mg QD Take 1 Metho di (PEPCID) 40 0-02 tablet (40 st MG tablet 00:00: mg total) Hos tena 00 by mouth l nightly. famotidine 2021-1 Yes 40mg QD Take 1 Metho di [...] solution 00 times a l day. ciprofloxac 2021-0 2022- No TAKE 1 Met hodi in HCl [...] up to 5 days .acute pain. traMADoL [id number] 50mg Q8H Take 1 Metho di (Ultram) [...] up to 5 days .acute pain. traMADoL 41187 50mg Q8H Take 1 Metho di (Ultram) 50 8- 09-04 tablet (50 s t mg tablet 00:00: 04:59 mg total) Ho spita 00 :00 by mouth l every 8 (eight) hours as needed for moderate pain for up to 5 days .acute pain. traMADoL 42072 50mg Q8H Take 1 Metho di (Ultram) 50 03-06-04 tablet (50 s t mg tablet 00:00: 04:59 mg total) Ho spita 00 :00 by mouth l every 8 (eight) hours as needed for moderate pain for up to 5 days .acute pain. traMADoL [id number] 50mg Q8H Take 1 Metho di (Ultram) 50 03-06-04 tablet (50 s t mg tablet 00:00: 04:59 mg total) Ho spita 00 :00 by mouth l every 8 (eight) hours as needed for moderate pain for up to 5 days .acute pain. traMADoL 31130 50mg Q8H Take 1 Metho di (Ultram) 50 03-06-04 tablet (50 s t mg tablet 00:00: 04:59 mg total) Ho spita 00 :00 by mouth l every 8 (eight) hours as needed for moderate pain for up to 5 days .acute pain. traMADoL [id number] 50mg Q8H Take 1 Metho di (Ultram) 50 03-06-04 tablet (50 s t mg tablet 00:00: 04:59 mg total) Ho spita 00 :00 by mouth l every 8 (eight) hours as needed for moderate pain for up to 5 days .acute pain. traMADoL [id number] 50mg Q8H Take 1 Metho di (Ultram) 50 8- 09-04 tablet (50 s t mg tablet 00:00: 04:59 mg total) Ho spita 00 :00 by mouth l every 8 (eight) hours as needed for moderate pain for up to 5 days .acute pain. traMADoL 70114 50mg Q8H Take 1 Metho di (Ultram) 50 -06 04-04 tablet (50 s t mg tablet 00:00: 04:59 mg total) Ho spita 00 :00 by mouth l every 8 (eight) hours as needed for moderate pain for up to 5 days .acute pain. traMADoL 0 2021- No [id number] 50mg Q8H Take 1 Metho di (Ultram) [...] mouth. [place] capsule 00 Medical Branch psyllium Yes 1{packe Take 1 Univ ers husk 3-19 t} Packet by ity of (METAMUCIL 00:00: mouth. [place] FIBER 00 Medical SINGLES) Branch 3.4 gram oral powder packet docusate 0 Yes 100mg Take 1 Univer s (COLACE) 3-19 capsule by ity o f 100 mg 00:00: mouth. [place] capsule Medical Branch psyllium Yes 1{packe Take 1 Univ ers husk 3-19 t} Packet by ity of (METAMUCIL 00:00: mouth. [place] FIBER Medical SINGLES) Branch 3.4 gram oral powder packet psyllium 0 Yes 3.4g Take 3.4 g Met hodi [...] PO, l mg oral 21:06: Daily, 0 [place] n tablet 00 Refill(s) Adult Yes 325 [...] Silver 8-18 0 l Ultra 20:29: Refill(s) [place] Claritin Yes 10 mg = 1 Jairo [...] Silver 8-18 0 l Ultra 20:29: Refill(s) [place] Claritin Yes 10 mg = 1 Jairo frida 8-18 tab, PO, l 20:29: Daily, PRN [place] 00 Itching / rash / allergy symptoms, # 20 tab, 0 Refill(s) Stool Yes PO, [facility] Softener 8-18 Bedtime, 0 l with 20:29: Refill(s) [place] Laxative aspirin-ome No 1 tab, PO, Memoria prazole 325 8-18 Daily, 0 l mg-40 mg 20:29: Refill(s) [facility] joss oral 00 delayed release tablet Centrum Yes PO, Daily, Jairo frida Silver 8-18 0 l Ultra 20:29: Refill(s) [place] Claritin Yes 10 mg = 1 Jairo frida 8-18 tab, PO, l 20:29: Daily, PRN [place] 00 Itching / rash / allergy symptoms, # 20 tab, 0 Refill(s) Stool Yes PO, Mem[facility] Softener 8-18 Bedtime, 0 l with 20:29: Refill(s) [place] Laxative aspirin-ome No 1 tab, PO, Memoria prazole 325 8-18 Daily, 0 l mg-40 mg 20:29: Refill(s) [facility] joss oral 00 delayed release tablet Centrum Yes PO, Daily, Jairo frida Silver 8-18 0 l Ultra 20:29: Refill(s) [place] Claritin Yes 10 mg = 1 Jairo frida 8-18 tab, PO, l 20:29: Daily, PRN [place] 00 Itching / rash / allergy symptoms, # 20 tab, 0 Refill(s) Stool Yes PO, Memoria Softener 8-18 Bedtime, 0 l with 20:29: Refill(s) [place] Laxative aspirin-ome No 1 tab, PO, Memoria prazole 325 8-18 Daily, 0 l mg-40 mg 20:29: Refill(s) [facility] joss oral 00 delayed release tablet Centrum Yes PO, Daily, Jairo frida Silver 8-18 0 l Ultra 20:29: Refill(s) [place] Claritin Yes 10 mg = 1 Jairo frida 8-18 tab, PO, l 20:29: Daily, PRN [place] 00 Itching / rash / allergy symptoms, # 20 tab, 0 Refill(s) Stool Yes PO, Memoria Softener 8-18 Bedtime, 0 l with 20:29: Refill(s) [place] Laxative aspirin-ome No 1 tab, PO, Memoria prazole 325 8-18 Daily, 0 l mg-40 mg 20:29: Refill(s) [facility] joss oral 00 delayed release tablet Centrum Yes PO, Daily, Jairo frida Silver 8-18 0 l Ultra 20:29: Refill(s) [place] Claritin Yes 10 mg = 1 Jairo frida 8-18 tab, PO, l 20:29: Daily, PRN [place] 00 Itching / rash / allergy symptoms, # 20 tab, 0 Refill(s) Stool Yes PO, Memoria Softener 8-18 Bedtime, 0 l with 20:29: Refill(s) [place] Laxative aspirin-ome No 1 tab, PO, Memoria prazole 325 8-18 Daily, 0 l mg-40 mg 20:29: Refill(s) [facility] joss oral 00 delayed release tablet Centrum Yes PO, Daily, Jairo frida Silver 8-18 0 l Ultra 20:29: Refill(s) [place] Claritin Yes 10 mg = 1 Jairo frida 8-18 tab, PO, l 20:29: Daily, PRN [place] 00 Itching / rash / allergy symptoms, # 20 tab, 0 Refill(s) Stool Yes PO, Memoria Softener 8-18 Bedtime, 0 l with 20:29: Refill(s) [place] Laxative aspirin-ome No 1 tab, PO, Memoria prazole 325 8-18 Daily, 0 l mg-40 mg 20:29: Refill(s) [facility] joss oral 00 delayed release tablet Centrum Yes PO, Daily, Jairo frida Silver 8-18 0 l Ultra 20:29: Refill(s) [facility] Claritin Yes 10 mg = 1 Jairo frida 8-18 tab, PO, l 20:29: Daily, PRN [place] 00 Itching / rash / allergy symptoms, # 20 tab, 0 Refill(s) Stool Yes PO, Memoria Softener 8-18 Bedtime, 0 l with 20:29: Refill(s) [place] Laxative aspirin-ome No 1 tab, PO, Memoria prazole 325 8-18 Daily, 0 l mg-40 mg 20:29: Refill(s) [facility] joss oral 00 delayed release tablet Centrum Yes PO, Daily, Jairo frida Silver 8-18 0 l Ultra 20:29: Refill(s) [facility] Claritin Yes 10 mg = 1 [...] Silver 8-18 0 l Ultra 20:29: Refill(s) [facility] Claritin Yes 10 mg = 1 [...] Silver 8-18 0 l Ultra 20:29: Refill(s) [facility] Claritin Yes 10 mg = 1 Jairo frida 8-18 tab, PO, l 20:29: Daily, PRN [place] 00 Itching / rash / allergy symptoms, # 20 tab, 0 Refill(s) Stool Yes PO, Memoria Softener 8-18 Bedtime, 0 l with 20:29: Refill(s) [place] Laxative aspirin-ome No 1 tab, PO, Memoria prazole 325 8-18 Daily, 0 l mg-40 mg 20:29: Refill(s) [facility] joss oral 00 delayed release tablet Centrum Yes PO, Daily, J[place] frida Silver 8-18 0 l Ultra 20:29: Refill(s) [facility] Claritin Yes 10 mg = 1 Jairo frida 8-18 tab, PO, l 20:29: Daily, PRN [place] 00 Itching / rash / allergy symptoms, # 20 tab, 0 Refill(s) Stool 0 Yes PO, Memoria Softener 8-18 Bedtime, 0 l with 20:29: Refill(s) [place] Laxative aspirin-ome No 1 tab, PO, Memoria prazole 325 8-18 Daily, 0 l mg-40 mg 20:29: Refill(s) [facility] joss oral 00 delayed release tablet Centrum Yes PO, Daily, J[place] frida Silver 8-18 0 l Ultra 20:29: Refill(s) [facility] Claritin Yes 10 mg = 1 [...] Silver 8-18 0 l Ultra 20:29: Refill(s) [facility] Claritin Yes 10 mg = 1 Jairo frida 8-18 tab, PO, l 20:29: Daily, PRN [place] 00 Itching / rash / allergy symptoms, # 20 tab, 0 Refill(s) Stool Yes PO, Memoria Softener 8-18 Bedtime, 0 l with 20:29: Refill(s) [place] Laxative aspirin-ome No 1 tab, PO, Memoria prazole 325 8-18 Daily, 0 l mg-40 mg 20:29: Refill(s) [facility] joss oral 00 delayed release tablet Centrum Yes PO, Daily, [place] fr[place] Silver 8-18 0 l Ultra 20:29: Refill(s) [facility] Claritin Yes 10 mg = 1 [...] Silver 8-18 0 l Ultra 20:29: Refill(s) [facility] Claritin Yes 10 mg = 1 J[place] frida 8-18 tab, PO, l 20:29: Daily, PRN [place] 00 Itching / rash / allergy symptoms, # 20 tab, 0 Refill(s) Stool 0 Yes PO, Memoria Softener 8-18 Bedtime, 0 l with 20:29: Refill(s) [place] Laxative aspirin-ome No 1 tab, PO, Memoria prazole 325 8-18 Daily, 0 l mg-40 mg 20:29: Refill(s) [facility] joss oral 00 delayed release tablet Centrum Yes PO, Daily, J[place] frida Silver 8-18 0 l Ultra 20:29: Refill(s) [facility] Claritin Yes 10 mg = 1 Jairo frida 8-18 tab, PO, l 20:29: Daily, PRN [place] 00 Itching / rash / allergy symptoms, # 20 tab, 0 Refill(s) Stool Yes PO, Memoria Softener 8-18 Bedtime, 0 l with 20:29: Refill(s) [place] Laxative aspirin-ome No 1 tab, PO, Memoria prazole 325 8-18 Daily, 0 l mg-40 mg 20:29: Refill(s) [facility] joss oral 00 delayed release tablet Centrum Yes PO, Daily, Jairo frida Silver 8-18 0 l Ultra 20:29: Refill(s) [facility] Claritin Yes 10 mg = 1 Jairo frida 8-18 tab, PO, l 20:29: Daily, PRN [place] 00 Itching / rash / allergy symptoms, # 20 tab, 0 Refill(s) Stool 0 Yes PO, Memoria Softener 8-18 Bedtime, 0 l with 20:29: Refill(s) [place] Laxative aspirin-ome No 1 tab, PO, Memoria prazole 325 8-18 Daily, 0 l mg-40 mg 20:29: Refill(s) [facility] joss oral 00 delayed release tablet Centrum Yes PO, Daily, Jairo frida Silver 8-18 0 l Ultra 20:29: Refill(s) [facility] Claritin Yes 10 mg = 1 Jairo frida 8-18 tab, PO, l 20:29: Daily, PRN [place] 00 Itching / rash / allergy symptoms, # 20 tab, 0 Refill(s) Stool 0 Yes PO, Memoria Softener 8-18 Bedtime, 0 l with 20:29: Refill(s) [place] Laxative aspirin-ome No 1 tab, PO, Memoria prazole 325 8-18 Daily, 0 l mg-40 mg 20:29: Refill(s) [facility] joss oral 00 delayed release tablet Centrum Yes PO, Daily, Jairo frida Silver 8-18 0 l Ultra 20:29: Refill(s) [facility] Claritin Yes 10 mg = 1 Jairo frida 8-18 tab, PO, l 20:29: Daily, PRN [place] 00 Itching / rash / allergy symptoms, # 20 tab, 0 Refill(s) Stool Yes PO, Memoria Softener 8-18 Bedtime, 0 l with 20:29: Refill(s) [place] Laxative aspirin-ome No 1 tab, PO, Memoria prazole 325 8-18 Daily, 0 l mg-40 mg 20:29: Refill(s) [facility] joss oral 00 delayed release tablet Centrum Yes PO, Daily, Jairo frida Silver 8-18 0 l Ultra 20:29: Refill(s) [facility] Claritin Yes 10 mg = 1 Jairo frida 8-18 tab, PO, l 20:29: Daily, PRN [place] 00 Itching / rash / allergy symptoms, # 20 tab, 0 Refill(s) Stool Yes PO, Memoria Softener 8-18 Bedtime, 0 l with 20:29: Refill(s) [place] Laxative aspirin-ome No 1 tab, PO, Memoria prazole 325 8-18 Daily, 0 l mg-40 mg 20:29: Refill(s) [facility] joss oral 00 delayed release tablet Centrum Yes PO, Daily, Jairo frida Silver 8-18 0 l Ultra 20:29: Refill(s) [facility] Claritin Yes 10 mg = 1 Jairo frida 8-18 tab, PO, l 20:29: Daily, PRN [place] 00 Itching / rash / allergy symptoms, # 20 tab, 0 Refill(s) Stool Yes PO, Memoria Softener 8-18 Bedtime, 0 l with 20:29: Refill(s) [place] Laxative aspirin-ome No 1 tab, PO, Memoria prazole 325 8-18 Daily, 0 l mg-40 mg 20:29: Refill(s) [facility] joss oral 00 delayed release tablet Centrum Yes PO, Daily, Jairo frida Silver 8-18 0 l Ultra 20:29: Refill(s) [facility] Claritin Yes 10 mg = 1 Jairo frida 8-18 tab, PO, l 20:29: Daily, PRN [place] 00 Itching / rash / allergy symptoms, # 20 tab, 0 Refill(s) Stool Yes PO, Memoria Softener 8-18 Bedtime, 0 l with 20:29: Refill(s) [place] Laxative aspirin-ome No 1 tab, PO, Memoria prazole 325 8-18 Daily, 0 l mg-40 mg 20:29: Refill(s) [facility] joss oral 00 delayed release tablet Centrum Yes PO, Daily, Jairo frida Silver 8-18 0 l Ultra 20:29: Refill(s) [facility] Claritin Yes 10 mg = 1 Jairo frida 8-18 tab, PO, l 20:29: Daily, PRN [place] 00 Itching / rash / allergy symptoms, # 20 tab, 0 Refill(s) Stool 0 Yes PO, Memoria Softener 8-18 Bedtime, 0 l with 20:29: Refill(s) [place] Laxative aspirin-ome No 1 tab, PO, Memoria prazole 325 8-18 Daily, 0 l mg-40 mg 20:29: Refill(s) [facility] joss oral 00 delayed release tablet Centrum Yes PO, Daily, Jairo frida Silver 8-18 0 l Ultra 20:29: Refill(s) [facility] Claritin Yes 10 mg = 1 Jairo frida 8-18 tab, PO, l 20:29: Daily, PRN [place] 00 Itching / rash / allergy symptoms, # 20 tab, 0 Refill(s) Stool Yes PO, Memoria Softener 8-18 Bedtime, 0 l with 20:29: Refill(s) [place] Laxative aspirin-ome No 1 tab, PO, Memoria prazole 325 8-18 Daily, 0 l mg-40 mg 20:29: Refill(s) [facility] joss oral 00 delayed release tablet Centrum Yes PO, Daily, Jairo frida Silver 8-18 0 l Ultra 20:29: Refill(s) [facility] Claritin Yes 10 mg = 1 Jairo frida 8-18 tab, PO, l 20:29: Daily, PRN [place] 00 Itching / rash / allergy symptoms, # 20 tab, 0 Refill(s) Stool Yes PO, Memoria Softener 8-18 Bedtime, 0 l with 20:29: Refill(s) [place] Laxative aspirin-ome No 1 tab, PO, Memoria prazole 325 8-18 Daily, 0 l mg-40 mg 20:29: Refill(s) [facility] joss oral 00 delayed release tablet Centrum Yes PO, Daily, Jairo frida Silver 8-18 0 l Ultra 20:29: Refill(s) [facility] Claritin Yes 10 mg = 1 Jairo frida 8-18 tab, PO, l 20:29: Daily, PRN [place] 00 Itching / rash / allergy symptoms, # 20 tab, 0 Refill(s) Stool 0 Yes PO, Memoria Softener 8-18 Bedtime, 0 l with 20:29: Refill(s) [place] Laxative aspirin-ome No 1 tab, PO, Memoria prazole 325 8-18 Daily, 0 l mg-40 mg 20:29: Refill(s) [facility] joss oral 00 delayed release tablet Centrum Yes PO, Daily, Jairo frida Silver 8-18 0 l Ultra 20:29: Refill(s) [facility] Claritin Yes 10 mg = 1 [...] Silver 8-18 0 l Ultra 20:29: Refill(s) [facility] Claritin Yes 10 mg = 1 Jairo frida 8-18 tab, PO, l 20:29: Daily, PRN [place] 00 Itching / rash / allergy symptoms, # 20 tab, 0 Refill(s) Stool Yes PO, Memoria Softener 8-18 Bedtime, 0 l with 20:29: Refill(s) [place] Laxative aspirin-ome No 1 tab, PO, Memoria prazole 325 8-18 Daily, 0 l mg-40 mg 20:29: Refill(s) [facility] joss oral 00 delayed release tablet Centrum Yes PO, Daily, Jairo frida Silver 8-18 0 l Ultra 20:29: Refill(s) [facility] Claritin Yes 10 mg = 1 Jairo frida 8-18 tab, PO, l 20:29: Daily, PRN [place] 00 Itching / rash / allergy symptoms, # 20 tab, 0 Refill(s) Stool 0 Yes PO, Memoria Softener 8-18 Bedtime, 0 l with 20:29: Refill(s) [place] Laxative aspirin-ome No 1 tab, PO, Memoria prazole 325 8-18 Daily, 0 l mg-40 mg 20:29: Refill(s) [facility] joss oral 00 delayed release tablet Centrum Yes PO, Daily, Jairo frida Silver 8-18 0 l Ultra 20:29: Refill(s) [facility] Claritin Yes 10 mg = 1 Jairo frida 8-18 tab, PO, l 20:29: Daily, PRN [place] 00 Itching / rash / allergy symptoms, # 20 tab, 0 Refill(s) Stool Yes PO, Memoria Softener 8-18 Bedtime, 0 l with 20:29: Refill(s) [place] Laxative aspirin-ome No 1 tab, PO, Memoria prazole 325 8-18 Daily, 0 l mg-40 mg 20:29: Refill(s) [facility] joss oral 00 delayed release tablet Centrum Yes PO, Daily, Jairo frida Silver 8-18 0 l Ultra 20:29: Refill(s) [facility] Claritin Yes 10 mg = 1 Jairo frida 8-18 tab, PO, l 20:29: Daily, PRN [place] 00 Itching / rash / allergy symptoms, # 20 tab, 0 Refill(s) Stool Yes PO, Memoria Softener 8-18 Bedtime, 0 l with 20:29: Refill(s) [place] Laxative aspirin-ome No 1 tab, PO, Memoria prazole 325 8-18 Daily, 0 l mg-40 mg 20:29: Refill(s) [facility] joss oral 00 delayed release tablet Centrum Yes PO, Daily, Jairo frida Silver 8-18 0 l Ultra 20:29: Refill(s) [facility] Claritin Yes 10 mg = 1 Jairo frida 8-18 tab, PO, l 20:29: Daily, PRN [place] 00 Itching / rash / allergy symptoms, # 20 tab, 0 Refill(s) Stool 0 Yes PO, Memoria Softener 8-18 Bedtime, 0 l with 20:29: Refill(s) [place] Laxative aspirin-ome No 1 tab, PO, Memoria prazole 325 8-18 Daily, 0 l mg-40 mg 20:29: Refill(s) [facility] joss oral 00 delayed release tablet Centrum Yes PO, Daily, Jairo frida Silver 8-18 0 l Ultra 20:29: Refill(s) [place] Claritin Yes 10 mg = 1 Jairo frida 8-18 tab, PO, l 20:29: Daily, PRN [place] 00 Itching / rash / allergy symptoms, # 20 tab, 0 Refill(s) Stool Yes PO, Memoria Softener 8-18 Bedtime, 0 l with 20:29: Refill(s) [place] Laxative aspirin-ome No 1 tab, PO, Memoria prazole 325 8-18 Daily, 0 l mg-40 mg 20:29: Refill(s) [facility] joss oral 00 delayed release tablet Centrum Yes PO, Daily, Jairo frida Silver 8-18 0 l Ultra 20:29: Refill(s) [place] Claritin Yes 10 mg = 1 Jairo frida 8-18 tab, PO, l 20:29: Daily, PRN [place] 00 Itching / rash / allergy symptoms, # 20 tab, 0 Refill(s) Stool Yes PO, Memoria Softener 8-18 Bedtime, 0 l with 20:29: Refill(s) [place] Laxative aspirin-ome No 1 tab, PO, Memoria prazole 325 8-18 Daily, 0 l mg-40 mg 20:29: Refill(s) [facility] joss oral 00 delayed release tablet Centrum Yes PO, Daily, Jairo frida Silver 8-18 0 l Ultra 20:29: Refill(s) [facility] Claritin Yes 10 mg = 1 Jairo frida 8-18 tab, PO, l 20:29: Daily, PRN [place] 00 Itching / rash / allergy symptoms, # 20 tab, 0 Refill(s) Stool 0 Yes PO, Memoria Softener 8-18 Bedtime, 0 l with 20:29: Refill(s) [place] Laxative aspirin-ome No 1 tab, PO, Memoria prazole 325 8-18 Daily, 0 l mg-40 mg 20:29: Refill(s) [facility] joss oral 00 delayed release tablet Centrum Yes PO, Daily, Jairo frida Silver 8-18 0 l Ultra 20:29: Refill(s) [place] Claritin Yes 10 mg = 1 Jairo frida 8-18 tab, PO, l 20:29: Daily, PRN [place] 00 Itching / rash / allergy symptoms, # 20 tab, 0 Refill(s) Stool Yes PO, Memoria Softener 8-18 Bedtime, 0 l with 20:29: Refill(s) [place] Laxative aspirin-ome No 1 tab, PO, Memoria prazole 325 8-18 Daily, 0 l mg-40 mg 20:29: Refill(s) [facility] joss oral 00 delayed release tablet Centrum Yes PO, Daily, Jairo frida Silver 8-18 0 l Ultra 20:29: Refill(s) [place] Claritin Yes 10 mg = 1 Jairo frida 8-18 tab, PO, l 20:29: Daily, PRN [place] 00 Itching / rash / allergy symptoms, # 20 tab, 0 Refill(s) Stool Yes PO, Memoria Softener 8-18 Bedtime, 0 l with 20:29: Refill(s) [place] Laxative aspirin-ome No 1 tab, PO, Memoria prazole 325 8-18 Daily, 0 l mg-40 mg 20:29: Refill(s) [facility] joss oral 00 delayed release tablet Centrum Yes PO, Daily, Jairo frida Silver 8-18 0 l Ultra 20:29: Refill(s) [place] Claritin Yes 10 mg = 1 Jairo frida 8-18 tab, PO, l 20:29: Daily, PRN [place] 00 Itching / rash / allergy symptoms, # 20 tab, 0 Refill(s) Stool 0 Yes PO, Memoria Softener 8-18 Bedtime, 0 l with 20:29: Refill(s) [place] Laxative aspirin-ome No 1 tab, PO, Memoria prazole 325 8-18 Daily, 0 l mg-40 mg 20:29: Refill(s) [facility] joss oral 00 delayed release tablet Centrum Yes PO, Daily, Jairo frida Silver 8-18 0 l Ultra 20:29: Refill(s) [place] Claritin Yes 10 mg = 1 Jairo frida 8-18 tab, PO, l 20:29: Daily, PRN [place] 00 Itching / rash / allergy symptoms, # 20 tab, 0 Refill(s) Stool Yes PO, Memoria Softener 8-18 Bedtime, 0 l with 20:29: Refill(s) [place] Laxative aspirin-ome No 1 tab, PO, Memoria prazole 325 8-18 Daily, 0 l mg-40 mg 20:29: Refill(s) [facility] joss oral 00 delayed release tablet Centrum Yes PO, Daily, Jairo frida Silver 8-18 0 l Ultra 20:29: Refill(s) [place] Claritin Yes 10 mg = 1 Jairo frida 8-18 tab, PO, l 20:29: Daily, PRN [place] 00 Itching / rash / allergy symptoms, # 20 tab, 0 Refill(s) aspirin-ome No 1 tab, PO, Memoria prazole 325 8-18 Daily, 0 l mg-40 mg 20:29: Refill(s) [facility] joss oral 00 delayed release tablet Stool Yes PO, Memoria Softener 8-18 Bedtime, 0 l with 20:29: Refill(s) [place] Laxative 00 Centrum Yes PO, Daily, Jairo frida Silver 8-18 0 l Ultra 20:29: Refill(s) [place] aspirin-ome No 1 tab, PO, Memoria prazole 325 8-18 Daily, 0 l mg-40 mg 20:29: Refill(s) [facility] joss oral 00 delayed release tablet Centrum 0 Yes PO, Daily, Jairo frida Silver 8-18 0 l Ultra 20:29: Refill(s) [place] Claritin Yes 10 mg = 1 Jairo frida 8-18 tab, PO, l 20:29: Daily, PRN [place] 00 Itching / rash / allergy symptoms, # 20 tab, 0 Refill(s) Stool Yes PO, Memoria Softener 8-18 Bedtime, 0 l with 20:29: Refill(s) [place] Laxative 00 Claritin Yes 10 mg = 1 [...] Silver 8-18 0 l Ultra 20:29: Refill(s) [place] Claritin Yes 10 mg = 1 Jairo frida 8-18 tab, PO, l 20:29: Daily, PRN [place] 00 Itching / rash / allergy symptoms, # 20 tab, 0 Refill(s) Stool Yes PO, Memoria Softener 8-18 Bedtime, 0 l with 20:29: Refill(s) [place] Laxative 00 Stool Yes PO, Memoria Softener 8-18 Bedtime, 0 l with 20:29: Refill(s) [place] Laxative aspirin-ome No 1 tab, PO, Memoria prazole 325 8-18 Daily, 0 l mg-40 mg 20:29: Refill(s) [facility] joss oral 00 delayed release tablet Centrum Yes PO, Daily, Jairo frida Silver 8-18 0 l Ultra 20:29: Refill(s) [place] Claritin Yes 10 mg = 1 Jairo frida 8-18 tab, PO, l 20:29: Daily, PRN [place] 00 Itching / rash / allergy symptoms, # 20 tab, 0 Refill(s) Stool 0 Yes PO, Memoria Softener 8-18 Bedtime, 0 l with 20:29: Refill(s) [place] Laxative aspirin-ome No 1 tab, PO, Memoria prazole 325 8-18 Daily, 0 l mg-40 mg 20:29: Refill(s) [facility] joss oral 00 delayed release tablet Centrum Yes PO, Daily, Jairo frida Silver 8-18 0 l Ultra 20:29: Refill(s) [place] Claritin Yes 10 mg = 1 Jairo [...] Silver 8-18 0 l Ultra 20:29: Refill(s) [place] Claritin Yes 10 mg = 1 Jairo frida 8-18 tab, PO, l 20:29: Daily, PRN [place] 00 Itching / rash / allergy symptoms, # 20 tab, 0 Refill(s) Stool Yes PO, Memoria Softener 8-18 Bedtime, 0 l with 20:29: Refill(s) [place] Laxative aspirin-ome No 1 tab, PO, Memoria prazole 325 8-18 Daily, 0 l mg-40 mg 20:29: Refill(s) [facility] joss oral 00 delayed release tablet Centrum Yes PO, Daily, Jairo frida Silver 8-18 0 l Ultra 20:29: Refill(s) [place] Claritin Yes 10 mg = 1 Jairo frida 8-18 tab, PO, l 20:29: Daily, PRN [place] 00 Itching / rash / allergy symptoms, # 20 tab, 0 Refill(s) Stool 0 Yes PO, Memoria Softener 8-18 Bedtime, 0 l with 20:29: Refill(s) [place] Laxative aspirin-ome No 1 tab, PO, Memoria prazole 325 8-18 Daily, 0 l mg-40 mg 20:29: Refill(s) [facility] joss oral 00 delayed release tablet Centrum Yes PO, Daily, Jairo frida Silver 8-18 0 l Ultra 20:29: Refill(s) [place] Claritin Yes 10 mg = 1 Jairo frida 8-18 tab, PO, l 20:29: Daily, PRN [place] 00 Itching / rash / allergy symptoms, # 20 tab, 0 Refill(s) Stool Yes PO, Memoria Softener 8-18 Bedtime, 0 l with 20:29: Refill(s) [place] Laxative aspirin-ome No 1 tab, PO, Memoria prazole 325 8-18 Daily, 0 l mg-40 mg 20:29: Refill(s) [facility] joss oral 00 delayed release tablet Centrum Yes PO, Daily, Jairo frida Silver 8-18 0 l Ultra 20:29: Refill(s) [place] Claritin Yes 10 mg = 1 Jairo frida 8-18 tab, PO, l 20:29: Daily, PRN [place] 00 Itching / rash / allergy symptoms, # 20 tab, 0 Refill(s) Stool Yes PO, Memoria Softener 8-18 Bedtime, 0 l with 20:29: Refill(s) [place] Laxative aspirin-ome No 1 tab, PO, Memoria prazole 325 8-18 Daily, 0 l mg-40 mg 20:29: Refill(s) [facility] joss oral 00 delayed release tablet Centrum Yes PO, Daily, Jairo frida Silver 8-18 0 l Ultra 20:29: Refill(s) [place] Claritin Yes 10 mg = 1 Jairo frida 8-18 tab, PO, l 20:29: Daily, PRN [place] 00 Itching / rash / allergy symptoms, # 20 tab, 0 Refill(s) Stool 0 Yes PO, Memoria Softener 8-18 Bedtime, 0 l with 20:29: Refill(s) [place] Laxative aspirin-ome No 1 tab, PO, Memoria [...] 8-18 Bedtime, 0 l with 20:29: Refill(s) [place] Laxative 00 cephalexin Yes 500 mg = 1 M emoria 500 mg oral 8-18 cap, PO, l capsule 20:28: QID, # 20 Macey nn 00 cap, 0 Refill(s) furosemide Yes 80 mg = 1 Me moria 80 mg oral 8-18 tab, PO, l tablet 20:28: Daily, # [place] 00 90 tab, 0 Refill(s) Insulin Yes [...] tab, PO, l tablet 20:28: Daily, # [place] 00 90 tab, 0 Refill(s) Insulin Yes [...] tab, PO, l tablet 20:28: Daily, # [place] 00 90 tab, 0 Refill(s) Insulin 0 [...] tab, PO, l tablet 20:28: Daily, # [place] 00 90 tab, 0 Refill(s) Insulin Yes [...] tab, PO, l tablet 20:28: Daily, # [place] 00 90 tab, 0 Refill(s) Insulin 0 [...] tab, PO, l tablet 20:28: Daily, # [place] 00 90 tab, 0 Refill(s) Insulin 0 [...] tab, PO, l tablet 20:28: Daily, # [place] 00 90 tab, 0 Refill(s) Insulin 0 [...] tab, PO, l tablet 20:28: Daily, # [place] 00 90 tab, 0 Refill(s) Insulin 0 [...] tab, PO, l tablet 20:28: Daily, # [place] 00 90 tab, 0 Refill(s) Insulin 0 [...] tab, PO, l tablet 20:28: Daily, # [place] 00 90 tab, 0 Refill(s) Insulin 0 [...] tab, PO, l tablet 20:28: Daily, # [place] 00 90 tab, 0 Refill(s) Insulin 0 [...] tab, PO, l tablet 20:28: Daily, # [place] 00 90 tab, 0 Refill(s) Insulin 0 [...] tab, PO, l tablet 20:28: Daily, # [place] 00 90 tab, 0 Refill(s) Insulin 0 [...] tab, PO, l tablet 20:28: Daily, # [place] 00 90 tab, 0 Refill(s) Insulin 0 [...] tab, PO, l tablet 20:28: Daily, # [place] 00 90 tab, 0 Refill(s) Insulin 0 [...] tab, PO, l tablet 20:28: Daily, # [place] 00 90 tab, 0 Refill(s) Insulin 0 [...] tab, PO, l tablet 20:28: Daily, # [place] 00 90 tab, 0 Refill(s) Insulin 0 [...] tab, PO, l tablet 20:28: Daily, # [place] 00 90 tab, 0 Refill(s) Insulin 0 [...] tab, PO, l tablet 20:28: Daily, # [place] 00 90 tab, 0 Refill(s) Insulin 0 [...] tab, PO, l tablet 20:28: Daily, # [place] 00 90 tab, 0 Refill(s) Insulin 0 [...] tab, PO, l tablet 20:28: Daily, # [place] 00 90 tab, 0 Refill(s) Insulin 0 [...] tab, PO, l tablet 20:28: Daily, # [place] 00 90 tab, 0 Refill(s) Insulin 0 [...] tab, PO, l tablet 20:28: Daily, # [place] 00 90 tab, 0 Refill(s) Insulin 0 [...] tab, PO, l tablet 20:28: Daily, # [place] 00 90 tab, 0 Refill(s) Insulin 0 [...] tab, PO, l tablet 20:28: Daily, # [place] 00 90 tab, 0 Refill(s) Insulin 0 [...] tab, PO, l tablet 20:28: Daily, # [place] 00 90 tab, 0 Refill(s) Insulin 2021-0 [...] tab, PO, l tablet 20:28: Daily, # [place] 00 90 tab, 0 Refill(s) cephalexin Yes 500 mg = 1 M emoria 500 mg oral 8-18 cap, PO, l capsule 20:28: QID, # 20 Macey nn 00 cap, 0 Refill(s) furosemide Yes 80 mg = 1 Me moria 80 mg oral 8-18 tab, PO, l tablet 20:28: Daily, # [place] 00 90 tab, 0 Refill(s) Insulin Yes [...] tab, PO, l tablet 20:28: Daily, # [place] 00 90 tab, 0 Refill(s) Insulin 0 [...] tab, PO, l tablet 20:28: Daily, # [place] 00 90 tab, 0 Refill(s) Insulin Yes [...] tab, PO, l tablet 20:28: Daily, # [place] 00 90 tab, 0 Refill(s) Insulin Yes [...] tab, PO, l tablet 20:27: Daily, # [place] 00 90 tab, 1 Refill(s) Metoprolol 0 [...] tab, PO, l tablet 20:27: Daily, # [place] 00 90 tab, 1 Refill(s) Metoprolol Yes [...] tab, PO, l tablet 20:27: Daily, # [place] 00 90 tab, 1 Refill(s) Metoprolol 0 [...] tab, PO, l tablet 20:27: Daily, # [place] 00 90 tab, 1 Refill(s) Metoprolol 0 [...] tab, PO, l tablet 20:27: Daily, # [place] 00 90 tab, 1 Refill(s) Metoprolol 0 [...] tab, PO, l tablet 20:27: Daily, # [place] 00 90 tab, 1 Refill(s) Metoprolol 2020-0 [...] tab, PO, l tablet 20:27: Daily, # [place] 00 90 tab, 1 Refill(s) Metoprolol Yes 25 mg = 1 Me moria Succinate 8-18 tab, PO, l ER 25 mg 20:27: Daily, # [place] nn oral 00 90 tab, 0 tablet, [...] tab, PO, l tablet 20:27: Daily, # [place] 00 90 tab, 1 Refill(s) Metoprolol 0 [...] [place] 00 90 tab, 1 Refill(s) Metoprolol 2021-0 [...] tab, PO, l tablet 20:27: Daily, # [place] 00 90 tab, 1 Refill(s) Metoprolol 0 [...] tab, PO, l tablet 20:27: Daily, # [place] 00 90 tab, 1 Refill(s) Metoprolol Yes [...] tab, PO, l tablet 20:27: Daily, # [place] 00 90 tab, 1 Refill(s) Metoprolol 0 [...] tab, PO, l tablet 20:27: Daily, # [place] 00 90 tab, 1 Refill(s) Metoprolol Yes [...] tab, PO, l tablet 20:27: Daily, # [place] 00 90 tab, 1 Refill(s) Metoprolol 2020-0 [...] tab, PO, l tablet 20:27: Daily, # [place] 00 90 tab, 1 Refill(s) Metoprolol 0 [...] tab, PO, l tablet 20:27: Daily, # [place] 00 90 tab, 1 Refill(s) Metoprolol 0 [...] tab, PO, l tablet 20:27: Daily, # [place] 00 90 tab, 1 Refill(s) Metoprolol Yes [...] Daily, # 30 tab, 0 Refill(s) levothyroxi 0 Yes 150 Memori a ne 150 mcg 8-18 microgram l (0.15 mg) 20:27: = 1 tab, [facility] joss oral tablet 00 PO, Daily, # 30 tab, 0 Refill(s) lisinopril 2020-0 Yes 5 mg = 1 Mem oria 5 mg oral 8-18 tab, PO, l tablet 20:27: Daily, # [place] 00 90 tab, 1 Refill(s) Metoprolol 2020-0 [...] tab, PO, l tablet 20:27: Daily, # [place] 00 90 tab, 1 Refill(s) levothyroxi Yes [...] Oral Tablet 00 tab, 0 Refill(s) Metoprolol Yes 25 mg = 1 [...] Intra-op ointment gentamicin Yes PRN, Univers injection 408 Starting ity of 17:28: K[place]le 10/14/20 [place] [...] Routine, Intra-op DUOVISC Yes PRN, Univers (DUOVISC 4-08 Starting ity [...] ity of no.2 irrig. 17:25: Krystle 10/14/20 [place] (BSS) 00 at 1225, Medical ophthalmic Until Branch solution Discontinu ed, Routine, Intra-op insulin Yes 30U inject 30 Unive rs lispro 4-08 Units ity of (HUMALOG 14:34: under the [facility] DESTIN 02 skin 3 Medical KWIKPEN (three) Branch U-100) 100 times unit/mL daily. inph Insulin Yes 45U inject 45 Unive rs Glargine 4-08 Units ity of (LANTUS 14:34: under the [place] SOLOSTOH 02 skin 2 Medical U-100 (two) Branch INSULIN) times 100 unit/mL daily. (3 mL) injection amLODIPine Yes 10mg Take 10 mg U nivers 10 mg 4-08 by mouth ity of tablet 14:34: daily. [place] [address] Medical Branch buPROPion Yes 150mg Take 150 [...] 4-08 by mouth ity of 14:34: daily. [place] [facility] metoprolol Yes 50mg Take 50 mg U nivers succinate 4-08 by mouth 2 ity of XL 50 mg 24 14:34: (two) [place] hr tablet 02 times Medical daily. Branch pantoprazol Yes 40mg Take 40 mg Univers e 40 mg EC 4-08 by mouth ity o f tablet 14:34: daily. [place] [facility] Levothyroxi Yes 150ug Take 150 U nivers ne 100 mcg 4-08 mcg by ity of capsule 14:34: mouth [place] 02 daily. Medical Branch aspirin 325 Yes 325mg Take 325 U nivers mg tablet 4-08 mg by ity of 14:34: mouth [place] 02 daily. Medical Branch Cholecalcif Yes Take by Uni vers daryl, 4-08 mouth. ity of Vitamin D3, 14:34: [place] (VITAMIN [facility] D3) 25 mcg [place] (1,000 unit) capsule folic Yes Take by Univers acid/multiv 4-08 mouth ity of it-min/lute 14:34: [place]. [place] (CENTRUM 02 [facility] SILVER [place] ORAL) mydriatic 2020- No .5mL 0.5 mL, Univ ers #5 [id number] Right Eye, ity of ophthalmic 12:45: 12:48 ONCE, 1 [place] as solution 00 :00 dose, Krystle Medica l 0.5 mL 10/14/20 at Branch syringe 0745, Routine, DSU Pre-op lactated 2020- No 1000mL at 42 Unive rs ringers IV 10-14 04-08 mL/hr, ity of infusion 12:45: 13:20 1,000 mL, [place] as 1,000 mL 00 :00 IV Medical Infusion, [place] ONCE, 1 dose, Krystle 10/14/20 at 0745, Routine, DSU Pre-op insulin Yes 30U inject 30 Unive rs lispro 4-08 Units ity of (HUMALOG 09:34: [place] DEST[place] 02 skin 3 Medical KWIKPEN (three) Branch U-100) 100 times unit/mL daily. inph Insulin Yes 45U inject 45 Unive rs Glargine 4-08 Units ity of (LANTUS 09:34: under the [place] SOLOSTAR 02 skin 2 Medical U-100 (two) Branch INSULIN) times 100 unit/mL daily. (3 mL) injection amLODIPine Yes 10mg Take 10 mg U nivers 10 mg 4-08 by mouth ity of tablet 09:34: daily. [place] [facility] buPROPion Yes 150mg Take 150 [...] 4-08 by mouth ity of 09:34: daily. Medical Branch metoprolol Yes 50mg Take 50 mg U nivers succinate 4-08 by mouth 2 ity of XL 50 mg 24 09:34: (two) [place] hr tablet 02 times Medical daily. Branch pantoprazol Yes 40mg Take 40 mg Univers e 40 mg EC 4-08 by mouth ity o f tablet 09:34: daily. [place] [facility] Levothyroxi Yes 150ug Take 150 U nivers ne 100 mcg 4-08 mcg by ity of capsule 09:34: mouth [place] 02 daily. Medical Branch aspirin 325 Yes 325mg Take 325 U nivers mg tablet 4-08 mg by ity of 09:34: mouth [place] 02 daily. Medical Branch Cholecalcif Yes Take by Uni vers daryl, 4-08 mouth. ity of Vitamin D3, 09:34: [place] (VITAMIN 02 [facility] D3) 25 mcg Branch (1,000 unit) capsule folic Yes Take by Univers acid/multiv 4-08 mouth ity of it-min/lute 09:34: [place] ([address] ORAL) insulin 2020-1 Yes 30U [id number] Inject 30 Methodi lispro 1-[id number] (HumaLOG 00:00: 3D [facility] the [facility] U-100 00 skin 3 l Insulin) (three) 100 unit/mL times a injection day before meals. insulin 2020-1 Yes 30U [id number] Inject 30 Methodi lispro 1-[id number] (HumaLOG 00:00: 3D under the [facility] U-100 00 skin 3 l Insulin) (three) 100 unit/mL times a injection day before meals. insulin 2020-1 Yes 30U [id number] Inject 30 [facility]i lispro 1-[id number] (HumaLOG 00:00: 3D under the [facility] U-100 00 skin 3 l Insulin) (three) 100 unit/mL times a injection day before meals. insulin 2020- Yes 30U [id number] Inject 30 [facility]i lispro 1-[id number] (HumaLOG 00:00: 3D under the [facility] U-100 00 skin 3 l Insulin) (three) 100 unit/mL times a injection day before meals. insulin 2020-1 Yes 30U [id number] Inject 30 [facility]i lispro 1-[id number] (HumaLOG 00:00: 3D under the [facility] U-100 00 skin 3 l Insulin) (three) 100 unit/mL times a injection day before meals. insulin 2020- Yes 30U [id number] Inject 30 Methodi lispro 1-[id number] (HumaLOG 00:00: 3D under the [facility] U-100 00 skin 3 l Insulin) (three) 100 unit/mL times a injection day before meals. insulin 2020-1 Yes 30U [id number] Inject 30 Methodi lispro 1-[id number] (HumaLOG 00:00: 3D under the [facility] U-100 00 skin 3 l Insulin) (three) 100 unit/mL times a injection day before meals. insulin 2020- Yes 30U [id number] Inject 30 Methodi lispro 1-[id number] (HumaLOG 00:00: 3D under the [facility] U-100 00 skin 3 l Insulin) (three) 100 unit/mL times a injection day before meals. insulin 2020-1 Yes 30U [id number] Inject 30 Methodi lispro 1-[id number] (HumaLOG 00:00: 3D under the [facility] U-100 00 skin 3 l Insulin) (three) 100 unit/mL times a injection day before meals. insulin 2020-1 Yes 30U [id number] Inject 30 Methodi lispro 1-[id number] (HumaLOG 00:00: 3D under the [facility] U-100 00 skin 3 l Insulin) (three) 100 unit/mL times a injection day before meals. insulin 2020-1 Yes 30U [id number] Inject 30 Methodi lispro 1-[id number] (HumaLOG 00:00: 3D under the [facility] U-100 00 skin 3 l Insulin) (three) 100 unit/mL times a injection day before meals. insulin 2020-1 Yes 30U [id number] Inject 30 Methodi lispro 1-[id number] (HumaLOG 00:00: 3D under the [facility] U-100 00 skin 3 l Insulin) (three) 100 unit/mL times a injection day before meals. insulin 2020-1 Yes 30U [id number] Inject 30 Methodi lispro 1-[id number] (HumaLOG 00:00: 3D under the [facility] U-100 00 skin 3 l Insulin) (three) 100 unit/mL times a injection day before meals. insulin 2020-1 Yes 30U [id number] Inject 30 Methodi lispro 1-[id number] (HumaLOG 00:00: 3D under the [facility] U-100 00 skin 3 l Insulin) (three) 100 unit/mL times a injection day before meals. insulin 2020-1 Yes 30U [id number] Inject 30 Methodi lispro 1-[id number] (HumaLOG 00:00: 3D under the [facility] U-100 00 skin 3 l Insulin) (three) 100 unit/mL times a injection day before meals. insulin 2020-0 Yes 30U inject 30 Unive rs lispro 9-24 Units ity of (HUMALOG 16:37: under the [facility] s DESTIN 58 skin 3 Medical KWIKPEN (three) Branch U-100) 100 times unit/mL daily. inph Insulin 2020-0 Yes 45U inject 45 Unive rs Glargine 9-24 Units ity of (LANTUS 16:37: under the [place] SOLOSTAR 58 skin 2 Medical U-100 (two) Branch INSULIN) times 100 unit/mL daily. (3 mL) injection amLODIPine 2020-0 Yes 10mg Take 10 mg U nivers 10 mg 9-24 by mouth ity of tablet 16:37: daily. [place] [address] Medical Branch buPROPion 2020-0 Yes 150mg Take [...] by mouth ity of tablet 16:37: daily. [place] [address] Medical Branch metoprolol 2020-0 Yes 50mg Take 50 mg U nivers succinate 9-24 by mouth 2 ity of XL 50 mg 24 16:37: (two) [place] hr tablet 58 times Medical daily. Branch pantoprazol 2020-0 Yes 40mg Take 40 mg Univers e 40 mg EC 9-24 by mouth ity o f tablet 16:37: daily. [place] [address] Medical Branch Levothyroxi 2020-0 Yes 150ug Take [...] 9-24 mouth. ity of Vitamin D3, 16:37: [place] (VITAMIN [address] [place] [address] D3) 25 mcg Branch (1,000 unit) capsule folic 2020-0 Yes Take by Univers acid/multiv 9-24 mouth ity of it-min/lute 16:37: daily. [place] in (CENTRUM 58 Medical SILVER Branch ORAL) insulin 2020-0 Yes 30U inject 30 Unive rs lispro 9-24 Units ity of (HUMALOG 16:37: under the [facility] s DESTIN 58 skin 3 Medical KWIKPEN (three) Branch U-100) 100 times unit/mL daily. inph Insulin 2020-0 Yes 45U inject 45 Unive rs Glargine 9-24 Units ity of (LANTUS 16:37: under the [place] SOLOSTAR 58 skin 2 Medical U-100 (two) Branch INSULIN) times 100 unit/mL daily. (3 mL) injection amLODIPine 2020-0 Yes 10mg Take 10 mg U nivers 10 mg 9-24 by mouth ity of tablet 16:37: daily. [place] [address] Medical Branch buPROPion 2020-0 Yes 150mg Take [...] by mouth ity of tablet 16:37: daily. [place] [address] Medical Branch metoprolol 2020-0 Yes 50mg Take 50 mg U nivers succinate 9-24 by mouth 2 ity of XL 50 mg 24 16:37: (two) [place] hr tablet 58 times Medical daily. Branch pantoprazol 2020-0 Yes 40mg Take 40 mg Univers e 40 mg EC 9-24 by mouth ity o f tablet 16:37: daily. [place] [address] Medical Branch Levothyroxi 2020-0 Yes 150ug Take [...] 9-24 mouth. ity of Vitamin D3, 16:37: [place] (VITAMIN [address] [place] [address] D3) 25 mcg Branch (1,000 unit) capsule folic 2020-0 Yes Take by Univers acid/multiv 9-24 mouth ity of it-min/lute 16:37: daily. [facility] s in (CENTRUM 58 Medical SILVER Branch ORAL) insulin 2020-0 Yes 30U inject 30 Unive rs lispro 9-24 Units ity of (HUMALOG 16:37: under the [facility] s DESTIN 58 skin 3 Medical KWIKPEN (three) Branch U-100) 100 times unit/mL daily. inph Insulin 2020-0 Yes 45U inject 45 Unive rs Glargine 9-24 Units ity of (LANTUS 16:37: under the [place] SOLOSTAR 58 skin 2 Medical U-100 (two) Branch INSULIN) times 100 unit/mL daily. (3 mL) injection amLODIPine 2020-0 Yes 10mg Take 10 mg U nivers 10 mg 9-24 by mouth ity of tablet 16:37: daily. [place] [address] Medical Branch buPROPion 2020-0 Yes 150mg Take [...] by mouth ity of tablet 16:37: daily. [place] [address] Medical Branch metoprolol 2020-0 Yes 50mg Take 50 mg U nivers succinate 9-24 by mouth 2 ity of XL 50 mg 24 16:37: (two) [place] hr tablet 58 times Medical daily. Branch pantoprazol 2020-0 Yes 40mg Take 40 mg Univers e 40 mg EC 9-24 by mouth ity o f tablet 16:37: daily. [place] [address] Medical Branch Levothyroxi 2020-0 Yes 150ug Take [...] 9-24 mouth. ity of Vitamin D3, 16:37: [place] (VITAMIN Medical D3) 25 mcg Branch (1,000 unit) capsule folic 2020-0 Yes Take by Univers acid/multiv 9-24 mouth ity of it-min/lute 16:37: daily. [place] in (CENTRUM 58 Medical SILVER Branch ORAL) insulin 2020-0 Yes 30U inject 30 Unive rs lispro 9-24 Units ity of (HUMALOG 16:37: under the [facility] s DESTIN 58 skin 3 Medical KWIKPEN (three) Branch U-100) 100 times unit/mL daily. inph Insulin 2020-0 Yes 45U inject 45 Unive rs Glargine 9-24 Units ity of (LANTUS 16:37: under the [place] SOLOSTAR 58 skin 2 Medical U-100 (two) Branch INSULIN) times 100 unit/mL daily. (3 mL) injection amLODIPine 2020-0 Yes 10mg Take 10 mg U nivers 10 mg 9-24 by mouth ity of tablet 16:37: daily. [place] [address] Medical Branch buPROPion 2020-0 Yes 150mg Take [...] by mouth ity of tablet 16:37: daily. [place] [address] Medical Branch metoprolol 2020-0 Yes 50mg Take 50 mg U nivers succinate 9-24 by mouth 2 ity of XL 50 mg 24 16:37: (two) [place] hr tablet 58 times Medical daily. Branch pantoprazol 2020-0 Yes 40mg Take 40 mg Univers e 40 mg EC 9-24 by mouth ity o f tablet 16:37: daily. [place] [address] Medical Branch Levothyroxi 2020-0 Yes 150ug Take [...] 9-24 mouth. ity of Vitamin D3, 16:37: [place] (VITAMIN [address] [place] [address] D3) 25 mcg Branch (1,000 unit) capsule folic 2020-0 Yes Take by Univers acid/multiv 9-24 mouth ity of it-min/lute 16:37: daily. [place] (CENTRUM 58 Medical SILVER Branch ORAL) insulin 2020-0 Yes 30U inject 30 Unive rs lispro 9-24 Units ity of (HUMALOG 13:50: under the [facility] s DESTIN 18 skin 3 Medical KWIKPEN (three) Branch U-100) 100 times unit/mL daily. inph Insulin 2020-0 Yes 45U inject 45 Unive rs Glargine 9-24 Units ity of (LANTUS 13:50: under the [place] SOLOSTAR 18 skin 2 Medical U-100 (two) Branch INSULIN) times 100 unit/mL daily. (3 mL) injection amLODIPine 2020-0 Yes 10mg Take 10 mg U nivers 10 mg 9-24 by mouth ity of tablet 13:50: daily. [place] [address] Medical Branch buPROPion 2020-0 Yes 150mg Take [...] by mouth ity of tablet 13:50: daily. [place] [address] Medical Branch metoprolol 2020-0 Yes 50mg Take 50 mg U nivers succinate 9-24 by mouth 2 ity of XL 50 mg 24 13:50: (two) [place] hr tablet 18 times Medical daily. Branch pantoprazol 2020-0 Yes 40mg Take 40 mg Univers e 40 mg EC 9-24 by mouth ity o f tablet 13:50: daily. [place] [address] Medical Branch Levothyroxi 2020-0 Yes 150ug Take [...] 9-24 mouth. ity of Vitamin D3, 13:50: [place] (VITAMIN [address] [place] [address] D3) 25 mcg Branch (1,000 unit) capsule folic 2020-0 Yes Take by Univers acid/multiv 9-24 mouth ity of it-min/lute 13:50: daily. [place] s in (CENTRUM 18 Medical SILVER Branch ORAL) insulin 2020-0 Yes 30U inject 30 Unive rs lispro 9-24 Units ity of (HUMALOG 13:50: under the [facility] s DESTIN 18 skin 3 Medical KWIKPEN (three) Branch U-100) 100 times unit/mL daily. inph Insulin 2020-0 Yes 45U inject 45 Unive rs Glargine 9-24 Units ity of (LANTUS 13:50: under the [place] SOLOSTAR 18 skin 2 Medical U-100 (two) Branch INSULIN) times 100 unit/mL daily. (3 mL) injection amLODIPine 2020-0 Yes 10mg Take 10 mg U nivers 10 mg 9-24 by mouth ity of tablet 13:50: daily. [place] [address] Medical Branch buPROPion 2020-0 Yes 150mg Take [...] by mouth ity of tablet 13:50: daily. [place] [address] Medical Branch metoprolol 2020-0 Yes 50mg Take 50 mg U nivers succinate 9-24 by mouth 2 ity of XL 50 mg 24 13:50: (two) [place] hr tablet 18 times Medical daily. Branch pantoprazol 2020-0 Yes 40mg Take 40 mg Univers e 40 mg EC 9-24 by mouth ity o f tablet 13:50: daily. [place] [address] Medical Branch Levothyroxi 2020-0 Yes 150ug Take [...] 9-24 mouth. ity of Vitamin D3, 13:50: [place] (VITAMIN [address] [place] [address] D3) 25 mcg Branch (1,000 unit) capsule [...] 13:04: 13:33 INTRA [place] 00 :17 PROCEDURE, [facility] Starting Branch Krystle 04/01/20 at 0804, Until [place] 04/01/20 at 0833, Routine, Intra-op propofoL IV 2020-0 2020- No Intravenou Univers infusion 04-01 s, ONCE ity of 13:04: 13:33 INTRA [place] :17 PROCEDURE, [facility] Starting Branch Krystle 04/01/20 at 0804, Until [...] INTRA [place] 00 :17 PROCEDURE, Medical Starting [facility] 04/01/20 at 0802, Until [facility] 04/01/20 at 0833, Routine, Intra-op lactated 2020-0 2020- No IV Univers ringers IV 04-01 Infusion, ity of infusion 13:01: 13:33 CONTINUOUS [place] 00 :17 PRN, [facility] Starting [facility] 04/01/20 at 0801, Until [place] 04/01/20 at 0833, Routine, Intra-op lactated 2020-0 2020- No IV Univers ringers IV 04-01 Infusion, ity of infusion 13:01: 13:33 CONTINUOUS [place] 00 :17 PRN, [facility] Starting [facility] 04/01/20 at 0801, Until [facility] 04/01/20 at 0833, Routine, Intra-op tetracaine 2020-0 Yes PRN, Univers (PONTOCAINE 04-01 Starting ity of ) 0.5 % 12:53: [place]rystle [place] ophthalmic 04/01/20 at [facility] ica drops [address] [place] [address] Until Discontinu ed, Routine, Intra-op water for 2020-0 Yes PRN, Univers irrigation 04-01 Starting ity o f irrigation 12:53: Krystle [place] solution 04/01/[address] Until Discontinu ed, Routine, Intra-op NaCl 0.9% 2020-0 Yes PRN, Univers (NS) 04-01 Starting ity of injection 12:52: Krystle [place] 04/01/[address] Until Discontinu ed, Routine, Intra-op neomycin-po 2020-0 Yes PRN, Univer s lymyxin-dex 04-01 Starting ity of amethasone 12:52: Krystle [place] (MAXITROL) 04/01/20 at [facility] [address] [place] [address] mg/g-10,000 Until unit/g-0.1 Discontinu % ed, ophthalmic Routine, ointment Intra-op gentamicin 2020-0 Yes PRN, Univers injection 04-01 Starting ity of 12:52: Krystle [place] 04/01/[address] Until Discontinu ed, VIOLETTA, Intra-op eye block 2020-0 Yes PRN, Univers syringe 11 04-01 Starting ity o f mL 12:51: Krystle [place] 04/01/[address] Until Discontinu ed, Intra-op EPINEPHrine 2020-0 Yes PRN, Univer s (PF) 04-01 Starting ity of 1:1,000 (1 12:51: Krystle [place] mg/mL) 04/01/20 at [facility] (ADRENALIN 0751, [place] (PF)) Until injection Discontinu ed, Routine, Intra-op DUOVISC 2020-0 Yes PRN, Univers (DUOVISC 04-01 Starting ity of VISCO 12:51: Krystle [place] ELASTIC) 3 04/01/20 at [facility] ical %-4 %(0.5 0751, [place] mL) 1 % Until (0.55 mL) Discontinu intraocular ed, injection Routine, Intra-op dexamethaso 2020-0 Yes PRN, Univer s ne 04-01 Starting ity of (DECADRON 12:50: Krystle [place] PHOSPHATE) 04/01/20 at [facility] ical injection [address] [place] [address] Until Discontinu ed, Routine, Intra-op ceFAZolin 2020-0 Yes PRN, Univers (ANCEF) 04-01 Starting ity of injection 12:50: Krystle [place] 04/01/[address] Until Discontinu ed, VIOLETTA, Intra-op balanced 2020-0 Yes PRN, Univers salt soln 04-01 Starting ity of no.2 irrig. 12:49: Krystle [place] (BSS) 04/01/20 at [facility] ophthalmic 07, [place] solution Until Discontinu ed, Routine, Intra-op lactated 2020-0 2020- No 1000mL at 20 [facility] [place] [facility] rs ringers IV 04-01 mL/hr, ity of infusion 12:00: 12:17 1,000 mL, [place] as 1,000 mL 00 :00 IV Medical Infusion, [place] ONCE, 1 dose, Krystle 04/01/20 at 0700, [...] Q.5D Take 50 mg M ethodi succinate [address] XL 00:00: (two) [...] 00:00: mouth [facility] 00 every l morning. Sucralfate Sucralfate No 1{table BID Sucralfate 1 [...] 150 MG e_morni (SR) 150 ng} MG Polyethylen Polyethylen No Polyethyle e Glycol - e Glycol - ne Glycol - Entresto Entresto No 1{table BID Entresto 24-26 MG 24-26 MG t} 24-26 MG Aspirin 81 Aspirin 81 No 1{table QD Aspirin 81 81 MG 81 MG t} 81 MG Loratadine Loratadine No 1{table QD Loratadine 10 MG 10 MG t} 10 MG Amiodarone Amiodarone No 1{table QD Amiodarone HCl 200 MG HCl 200 MG t} HCl 200 MG Cetirizine Cetirizine No 1{table QD Cetirizine HCl 10 MG HCl 10 MG t} HCl 10 MG Levothyroxi Levothyroxi No Levothyrox ne Sodium ne Sodium ine Sodium 150 MCG 150 MCG 150 MCG Atorvastati Atorvastati No 1{table QD Atorvastat n Calcium n Calcium t} in Calcium 40 MG 40 MG 40 MG Cephalexin Cephalexin No 1{capsu QID Cephalexin 500 MG 500 MG le} 500 MG Mupirocin 2 Mupirocin 2 No 1{appli BID Mupirocin % % cation} 2 % Ticagrelor Ticagrelor No 1{table BID Ticagrelor 90 MG 90 MG t} 90 MG Insulin Insulin No Insulin Glargine Glargine Glargine 100 UNIT/ML 100 UNIT/ML 100 UNIT/ML Apixaban Apixaban No Apixaban 2.5 MG 2.5 MG 2.5 MG Pantoprazol Pantoprazol No 1{table QD Pantoprazo [...] le} ferol 50 (1999) (1999) MCG (1999) Immunizations Ordered Filled Date Status Comments Source [facility] [place]:00:[place] [id number] 2021-07-27 Completed [facility] VACCINATION 00:00:[place] [id number] 2021-07-27 Completed [facility] VACCINATION 00:00:[place] [id number] 2021-07-27 Completed [facility] VACCINATION 00:00:00 [facility]19 2021-07-27 Completed [facility]ACC[facility] 00:00:00 [facility] P[facility]ZER COVID-19 2021-07-27 Completed [facility] VACCINATION 00:00:00 Hospital PFIZER COVID-19 2021-07-27 Completed [facility] VACCINATION 00:00:00 Hospital PFIZER COVID-19 2021-07-27 Completed [facility] VACCINATION 00:00:00 Hospital PFIZER COVID-19 2021-07-27 Completed [facility] VACCINATION 00:00:00 Hospital PFIZER COVID-19 2021-07-27 Completed [facility] VACCINATION 00:00:00 Hospital PFIZER COVID-19 2021-07-27 Completed [facility] VACCINATION 00:00:00 Hospital PFIZER COVID-19 2021-07-27 Completed [facility] MRNA VACCINATION 00:00:00 [facility] SARS-COV-2 COVID-19 2021-07-27 Completed Unive rsity of PFIZER VACCINE 00:00:00 [facility] SARS-COV-2 COVID-19 2021-07-27 Completed Unive rsity of PFIZER VACCINE 00:00:00 [facility] SARS-COV-2 COVID-19 2021-07-27 Completed Unive rsity of PFIZER VACCINE 00:00:00 [facility] SARS-COV-2 COVID-19 2021-07-27 Completed Unive rsity of PFIZER VACCINE 00:00:00 [facility] SARS-COV-2 COVID-19 2021-07-27 Completed Unive rsity of PFIZER VACCINE 00:00:00 [facility] Influenza Virus 2021-04-20 Completed Universit y of Vaccine 00:00:00 [facility] Influenza Virus 2021-04-20 Completed Universit y of Vaccine 00:00:00 [facility] Influenza Virus 2021-04-20 Completed Universit y of Vaccine 00:00:00 [facility] Influenza Virus 2021-04-20 Completed Universit y of Vaccine 00:00:00 [facility] Influenza Virus 2021-04-20 Completed Universit y of Vaccine 00:00:00 [facility] PFIZER COVID-19 2021-02-25 Completed [facility]orship MRNA VACCINATION 00:00:00 [facility] PFIZER COVID-19 2021-02-25 Completed [facility]orship MRNA VACCINATION 00:00:00 [facility] PFIZER COVID-19 2021-02-25 Completed [facility]orship MRNA VACCINATION 00:00:00 [facility] PFIZER COVID-19 2021-02-25 Completed [facility] MRNA VACCINATION 00:00:00 Hospital PFIZER COVID-19 2021-02-25 Completed [facility] M[facility] VACCINATION 00:00:00 Hospital PFIZER COVID-19 2021-02-25 Completed [facility] VACCINATION 00:00:00 Hospital PFIZER COVID-19 2021-02-25 Completed [facility] VACCINATION 00:00:00 Hospital PFIZER COVID-19 2021-02-25 Completed [facility] MRNA VACCINATION 00:00:00 [facility] PFIZER COVID-19 2021-02-25 Completed [facility]orship MRNA VACCINATION 00:00:00 [facility] PFIZER COVID-19 2021-02-25 Completed [facility]orship MRNA VACCINATION 00:00:00 [facility] PFIZER COVID-19 2021-02-25 Completed Worship MRNA VACCINATION 00:00:00 [facility] PFIZER COVID-19 2021-02-25 Completed [facility]orship MRNA VACCINATION 00:00:00 [facility] SARS-COV-2 COVID-19 2021-02-25 Completed Unive rsity of PFIZER VACCINE 00:00:00 [facility] SARS-COV-2 COVID-19 2021-02-25 Completed Unive rsity of PFIZER VACCINE 00:00:00 [facility] SARS-COV-2 COVID-19 2021-02-25 Completed Unive rsity of PFIZER VACCINE 00:00:00 [facility] SARS-COV-2 COVID-19 2021-02-25 Completed Unive rsity of PFIZER VACCINE 00:00:00 [facility] SARS-COV-2 COVID-19 2021-02-25 Completed Unive rsity of PFIZER VACCINE 00:00:00 [facility] PFIZER COVID-19 2021-01-06 Completed Worship MRNA VACCINATION 00:00:00 [facility] PFIZER COVID-19 2021-01-06 Completed Worship MRNA VACCINATION 00:00:00 [facility] PFIZER COVID-19 2021-01-06 Completed Worship MRNA VACCINATION 00:00:00 [facility] PFIZER COVID-19 2021-01-06 Completed [facility]orship MRNA VACCINATION 00:00:00 [facility] PFIZER COVID-19 2021-01-06 Completed [facility] MRNA VACCINATION 00:00:00 Hospital PFIZER COVID-19 2021-01-06 Completed [facility] MRNA VACCINATION 00:00:00 [facility] PFIZER COVID-19 2021-01-06 Completed [facility] MRNA VACCINATION 00:00:00 Hospital PFIZER COVID-19 2021-01-06 Completed [facility] MRNA VACCINATION 00:00:00 Hospital PFIZER COVID-19 2021-01-06 Completed [facility]orship MRNA VACCINATION 00:00:00 [facility] PFIZER COVID-19 2021-01-06 Completed [facility] MRNA VACCINATION 00:00:00 Hospital PFIZER COVID-19 2021-01-06 Completed [facility] MRNA VACCINATION 00:00:00 [facility] PFIZER COVID-19 2021-01-06 Completed [facility]orship MRNA VACCINATION 00:00:00 [facility] SARS-COV-2 COVID-19 2021-01-06 Completed Unive rsity of PFIZER VACCINE 00:00:00 [facility] SARS-COV-2 COVID-19 2021-01-06 Completed Unive rsity of PFIZER VACCINE 00:00:00 [facility] SARS-COV-2 COVID-19 2021-01-06 Completed Unive rsity of PFIZER VACCINE 00:00:00 [facility] SARS-COV-2 COVID-19 2021-01-06 Completed Unive rsity of PFIZER VACCINE 00:00:00 [facility] SARS-COV-2 COVID-19 2021-01-06 Completed Unive rsity of PFIZER VACCINE 00:00:00 [facility] SARS-COV-2 COVID-19 2020-11-03 Completed Unive rsity of [...] 2019-12-05 Completed University o f Polysaccharide, 00:00:00 [place] [facility] PPSV23 (PNEUMOVAX) Branch Pneumococcal 2019-12-05 Completed University o f Polysaccharide, 00:00:00 [place] [facility] PPSV23 (PNEUMOVAX) Branch Pneumococcal 2019-12-05 Completed University o f Polysaccharide, 00:00:00 [place] [facility] PPSV23 (PNEUMOVAX) Branch Pneumococcal 2019-12-05 Completed University o f Polysaccharide, 00:00:00 [place] [facility] PPSV23 (PNEUMOVAX) Branch Pneumococcal 2019-12-05 Completed University o f Polysaccharide, 00:00:00 [place] [facility] PPSV23 (PNEUMOVAX) Branch TDAP 2019-08-19 Completed University of 00:00:00 [facility] TDAP 2019-08-19 Completed University of 00:00:00 [facility] TDAP 2019-08-19 Completed University of 00:00:00 [facility] TDAP 2019-08-19 Completed University of 00:00:00 [facility] TDAP 2019-08-19 Completed University of 00:00:00 [facility] Flu Trivalent 2019-04-28 Completed University of 00:00:00 [facility] Influenza Virus 2019-04-28 Completed Universit y of Vaccine Quad IM 3+ 00:00:00 [facility] Flu Trivalent 2019-04-28 Completed University of 00:00:00 [facility] Influenza Virus 2019-04-28 Completed Universit y of Vaccine Quad IM 3+ 00:00:00 [facility] Flu Trivalent 2019-04-28 Completed University of 00:00:00 [facility] Influenza Virus 2019-04-28 Completed Universit y of Vaccine Quad IM 3+ 00:00:00 [facility] Flu Trivalent 2019-04-28 Completed University of 00:00:00 [facility] Influenza Virus 2019-04-28 Completed Universit y of Vaccine Quad IM 3+ 00:00:00 [facility] Flu Trivalent 2019-04-28 Completed University of 00:00:00 [facility] Influenza Virus 2019-04-28 Completed Universit y of Vaccine Quad IM 3+ 00:00:00 [facility] Flu Trivalent 2018-03-18 Completed University of 00:00:00 [facility] Flu Trivalent 2018-03-18 Completed University of 00:00:00 [facility] Flu Trivalent 2018-03-18 Completed University of 00:00:00 [facility] Flu Trivalent 2018-03-18 Completed University of 00:00:00 [facility] Flu Trivalent 2018-03-18 Completed University of 00:00:00 [facility] Flu Split Virus, 2017-04-26 Completed Universi ty of PSA 00:00:00 [facility] Flu Split Virus, 2017-04-26 Completed Universi ty of PSA 00:00:00 [facility] Flu Split Virus, 2017-04-26 Completed Universi ty of PSA 00:00:00 [facility] Flu Split Virus, 2017-04-26 Completed Universi ty of PSA 00:00:00 [facility] Flu Split Virus, 2017-04-26 Completed Universi ty of PSA 00:00:00 [facility] Flu Split Virus, 2016-05-01 Completed Universi ty of PSA 00:00:00 [facility] Flu Split Virus, 2016-05-01 Completed Universi ty of PSA 00:00:00 [facility] Flu Split Virus, 2016-05-01 Completed Universi ty of PSA 00:00:00 [facility] Flu Split Virus, 2016-05-01 Completed Universi ty of PSA 00:00:00 [facility] Flu Split Virus, 2016-05-01 Completed Universi ty of PSA 00:00:00 [facility] Flu Split Virus, 2015-04-29 Completed Universi ty of PSA 00:00:00 [facility] Flu Split Virus, 2015-04-29 Completed Universi ty of PSA 00:00:00 [facility] Flu Split Virus, 2015-04-29 Completed Universi ty of PSA 00:00:00 [facility] Flu Split Virus, 2015-04-29 Completed Universi ty of PSA 00:00:00 [facility] Flu Split Virus, 2015-04-29 Completed Universi ty of PSA 00:00:00 [facility] Pneumococcal 2012-05-03 Completed University o f Polysaccharide, 00:00:00 [place] [facility] PPSV23 (PNEUMOVAX) Branch Pneumococcal 2012-05-03 Completed University o f Polysaccharide, 00:00:00 [place] [facility] PPSV23 (PNEUMOVAX) Branch Pneumococcal 2012-05-03 Completed University o f Polysaccharide, 00:00:00 [place] [facility] PPSV23 (PNEUMOVAX) Branch Pneumococcal 2012-05-03 Completed University o f Polysaccharide, 00:00:00 [place] [facility] PPSV23 (PNEUMOVAX) Branch Pneumococcal 2012-05-03 Completed University o f Polysaccharide, 00:00:00 [place] [facility] PPSV23 (PNEUMOVAX) Branch TDAP 2009-09-06 Completed University of 00:00:00 [facility] TDAP 2009-09-06 Completed University of 00:00:00 [facility] TDAP 2009-09-06 Completed University of 00:00:00 [facility] TDAP 2009-09-06 Completed University of 00:00:00 [facility] TDAP 2009-09-06 Completed University of 00:00:00 [facility] Pneumococcal 2008-07-09 Completed University o f Polysaccharide, [...] 2008-07-09 Completed University o f Polysaccharide, 00:00:00 [place] [facility] PPSV23 (PNEUMOVAX) Branch PFIZER COVID-19 Unknown Completed [facility] PFIZER COVID-19 Unknown Completed [facility] PFIZER COVID-19 Unknown Completed [facility] PFIZER COVID-19 Unknown Completed [facility] PFIZER COVID-19 Unknown Completed [facility]ACC[facility] PFIZER COVID-19 Unknown Completed [facility]ACC[facility] SARS-COV-2 COVID-19 Unknown Completed Unive rsity of VACCINE, BIVALENT [place] [facility] 0.2ML, PFIZER, Branch 6MO-4YRS, IM SARS-COV-2 COVID-19 Unknown Completed Unive rsity of VACCINE, BIVALENT [place] [facility] 0.2ML, PFIZER, Branch 6MO-4YRS, IM SARS-COV-2 COVID-19 Unknown Completed Unive rsity of PFIZER VACCINE [facility] SARS-COV-2 COVID-19 Unknown Completed Unive rsity of PFIZER VACCINE [facility] SARS-COV-2 COVID-19 Unknown Completed Unive rsity of PFIZER VACCINE [facility] Branch Pneumococcal Unknown Completed University o f Polysaccharide, [place] [facility] PPSV23 (PNEUMOVAX) Branch Pneumococcal Unknown Completed University o f Polysaccharide, [place] [facility] PPSV23 (PNEUMOVAX) Branch Pneumococcal Unknown Completed University o f Polysaccharide, [place] [facility] PPSV23 (PNEUMOVAX) Branch Flu Trivalent Unknown Completed [facility] Flu Trivalent Unknown Completed [facility] Influenza Virus Unknown Completed Universit y of Vaccine Quad IM 3+ [facility] Flu Split Virus, Unknown Completed Universi ty of [facility] Flu Split Virus, Unknown Completed Universi ty of [facility] Flu Split Virus, Unknown Completed Universi ty of [facility] Influenza Virus Unknown Completed Universit y of Vaccine [facility] TDAP Unknown Completed [facility] TDAP Unknown Completed [facility] PFIZER COVID-19 Unknown Completed [facility] PFIZER COVID-19 Unknown Completed [facility]ACC[facility] PFIZER COVID-19 Unknown Completed [facility] MRNA VACCINATION [facility] Vital Signs Vital Name Observation Time [...] 22:25:00 137 mm[Hg] Univer sity of pressure [facility] Diastolic blood 2022-12-22 22:25:00 73 mm[Hg] Unive rsity of pressure [place] [facility] Heart rate 2022-12-22 22:25:00 103 /min Universi ty of [place] [facility] Oxygen saturation in 2022-12-22 22:25:00 98 /min University of Arterial blood by [facility] Pulse oximetry Branch Respiratory rate 2022-12-22 21:00:00 13 /min Univ ersity of [place] [facility] Body temperature 2022-12-22 17:00:00 36.11 Katharina Univ ersity of [place] [facility] Body weight 2022-12-22 17:00:00 76.5 kg [facility]i ty [facility] [place] [facility] BMI 2022-12-22 17:00:00 27.22 kg/m2 [facility] [place] [facility] Body height 2022-12-15 03:29:00 167.6 cm [facility] [place] [facility] Body temperature 2022-12-21 20:00:00 36.33 Katharina Univ ersity of [place] [facility] Systolic blood 2022-12-21 17:00:00 130 mm[Hg] Univer sity of pressure [place] [facility] Diastolic blood 2022-12-21 17:00:00 71 mm[Hg] Unive rsity of pressure [place] [facility] Heart rate 2022-12-21 17:00:00 85 /min [facility]i ty of [place] [facility] Respiratory rate 2022-12-21 17:00:00 12 /min Univ ersity of [place] [facility] Oxygen saturation in 2022-12-21 17:00:00 100 /min University of Arterial blood by [facility] Pulse oximetry Branch Body weight 2022-12-21 11:04:00 80.468 kg [facility] [place] [facility] BMI 2022-12-21 11:04:00 27.22 kg/m2 [facility] [place] [facility] Body height 2022-12-15 03:29:00 167.6 cm [facility] [place] [facility] Systolic blood 2022-11-07 20:23:00 130 mm[Hg] Univer sity of pressure [place] [facility] Diastolic blood 2022-11-07 20:23:00 58 mm[Hg] Unive rsity of pressure [place] [facility] Heart rate 2022-11-07 20:23:00 62 /min [facility]i ty [facility] [place] [facility] Body temperature 2022-11-07 20:23:00 36.11 Katharina Univ ersity of [facility] Respiratory rate 2022-11-07 20:23:00 17 /min Univ [facility] Oxygen saturation in 2022-11-07 20:23:00 100 /min [facility] blood by [facility] Pulse oximetry Branch Body weight 2022-11-06 17:09:00 74 kg Universi ty [facility] BMI 2022-11-06 17:09:00 26.33 kg/m2 Universi ty [facility] Body height 2022-11-04 22:57:00 167.6 cm [facility] height 2022-08-15 10:20:00 66.0 [in_i] [facility] weight 2022-08-15 10:20:00 224.4 [lb_av] [facility] temperature 2022-08-15 10:20:00 97.0 [degF] [facility] bmi 2022-08-15 10:20:00 36.22 kg/m2 [facility] oximetry 2022-08-15 10:20:00 96 % [facility] respiratory rate 2022-08-15 10:20:00 17 /min Comm on [facility] blood pressure 2022-08-15 10:20:00 131 mm[Hg] [facility] - systolic [facility] blood pressure 2022-08-15 10:20:00 72 mm[Hg] [facility] - diastolic [facility] height 2022-07-26 10:00:00 66.0 [in_i] [facility] weight 2022-07-26 10:00:00 232.0 [lb_av] [facility] temperature 2022-07-26 10:00:00 97.3 [degF] [facility] bmi 2022-07-26 10:00:00 37.44 kg/m2 [facility] oximetry 2022-07-26 10:00:00 96 % [facility] respiratory rate 2022-07-26 10:00:00 17 /min Comm on [facility] blood pressure 2022-07-26 10:00:00 138 mm[Hg] [facility] - systolic [facility] blood pressure 2022-07-26 10:00:00 72 mm[Hg] Common [facility] - diastolic [facility] height 2022-02-27 11:20:00 66.0 [in_i] Common S pirit [facility] weight 2022-02-27 11:20:00 236.6 [lb_av] Common [facility] temperature 2022-02-27 11:20:00 97.2 [degF] Common S [facility] bmi 2022-02-27 11:20:00 38.18 kg/m2 [facility] S [facility] oximetry 2022-02-27 11:20:00 94 % Common [facility] respiratory rate 2022-02-27 11:20:00 16 /min Comm on [facility] blood pressure 2022-02-27 11:20:00 138 mm[Hg] [facility] - systolic [facility] blood pressure 2022-02-27 11:20:00 76 mm[Hg] Common [facility] - diastolic [facility] height 2022-02-27 11:00:00 66.0 [in_i] Common S [facility] weight 2022-02-27 11:00:00 236.6 [lb_av] Common [facility] temperature 2022-02-27 11:00:00 97.2 [degF] Common [facility] bmi 2022-02-27 11:00:00 38.18 kg/m2 Common S [facility] oximetry 2022-02-27 11:00:00 93 % Common S [facility] respiratory rate 2022-02-27 11:00:00 16 /min Comm on [facility] blood pressure 2022-02-27 11:00:00 138 mm[Hg] [facility] - systolic [facility] blood pressure 2022-02-27 11:00:00 76 mm[Hg] [facility] - diastolic [facility] Systolic blood 2020-10-14 14:10:00 120 mm[Hg] Univer sity of pressure [place] [facility] [place] Diastolic blood 2020-10-14 14:10:00 65 mm[Hg] Unive rsity of pressure [facility] Heart rate 2020-10-14 14:10:00 81 /min [facility]i ty of [place] [facility] [place] Body temperature 2020-10-14 14:10:00 36.06 Katharina Univ ersity of [facility] Respiratory rate 2020-10-14 14:10:00 13 /min Univ ersity of [facility] Oxygen saturation in 2020-10-14 14:10:00 99 /min University of Arterial blood by [place] [facility] Pulse oximetry Branch Body height 2020-10-01 18:42:00 167.6 cm [facility] [place] [facility] [place] Body weight 2020-10-01 18:42:00 108.4 kg [facility] [place] [facility] BMI 2020-10-01 18:42:00 38.59 kg/m2 [facility] [place] [facility] Systolic blood 2020-10-14 14:10:00 120 mm[Hg] Univer sity of [facility] Diastolic blood 2020-10-14 14:10:00 65 mm[Hg] Unive rsity of pressure [facility] Heart rate 2020-10-14 14:10:00 81 /min [facility]i ty of [facility] Body temperature 2020-10-14 14:10:00 36.06 Katharina Univ ersity of [facility] Respiratory rate 2020-10-14 14:10:00 13 /min Univ ersity of [facility] Oxygen saturation in 2020-10-14 14:10:00 99 /min [facility] of Arterial blood by [place] [facility] Pulse oximetry Branch Body height 2020-10-01 18:42:00 167.6 cm [facility] [place] [facility] Body weight 2020-10-01 18:42:00 108.4 kg [facility] [place] [facility] BMI 2020-10-01 18:42:00 38.59 kg/m2 [facility] [place] [facility] Systolic blood 2020-04-01 13:55:00 113 mm[Hg] Univer sity of pressure [facility] Diastolic blood 2020-04-01 13:55:00 56 mm[Hg] Unive rsity of pressure [facility] Heart rate 2020-04-01 13:55:00 63 /min [facility] [place] [facility] Body temperature 2020-04-01 13:55:00 36.11 Katharina Univ ersity of [facility] Oxygen saturation in 2020-04-01 13:50:00 100 /min [facility] Arterial blood by [place] [facility]ose Pulse oximetry Branch Respiratory rate 2020-04-01 13:45:00 18 /min Univ ersity of [place] [facility] Body height 2020-03-30 17:15:00 167.6 cm [facility] Body weight 2020-03-30 17:15:00 108.41 kg [facility] [place] [facility] BMI 2020-03-30 17:15:00 38.58 kg/m2 [facility] [place] [facility] Systolic blood 2020-04-01 13:55:00 113 mm[Hg] Univer sity of pressure [facility] Diastolic blood 2020-04-01 13:55:00 56 mm[Hg] Unive rsity of pressure [facility] Heart rate 2020-04-01 13:55:00 63 /min [facility] Body temperature 2020-04-01 13:55:00 36.11 Katharina [facility] [place] [facility] Oxygen saturation in 2020-04-01 13:50:00 100 /min [facility] Arterial blood by [place] [facility] jose Pulse oximetry Branch Respiratory rate 2020-04-01 13:45:00 18 /min [facility] [place] [facility] Body height 2020-03-30 17:15:00 167.6 cm [facility] Body weight 2020-03-30 17:15:00 108.41 kg [facility] BMI 2020-03-30 17:15:00 38.58 kg/m2 [facility] Respiratory rate 2020-04-01 13:32:00 18 /min [facility] Respiratory rate 2020-04-01 13:32:00 18 /min [facility] Heart rate 2022-04-26 17:30:00 76 /min [facility] Oxygen saturation in 2022-04-26 17:30:00 93 /min [facility] Arterial blood by Pulse oximetry Systolic blood 2022-04-26 17:20:00 139 mm[Hg] [facility] pressure Diastolic blood 2022-04-26 17:20:00 67 mm[Hg] [facility] pressure Respiratory rate 2022-04-26 17:20:00 16 /min [facility] Body temperature 2022-04-26 17:00:[address] [facility] Body height 2022-04-24 17:06:00 167.6 cm [facility] Body weight 2022-04-24 17:06:00 110.224 kg [facility] BMI 2022-04-24 17:06:00 39.22 kg/m2 [facility] Systolic (mm Hg) 2021-02-23 20:05:00 [facility] Diastolic (mm Hg) 2021-02-23 20:05:00 [facility] francesca Lewis Heart Rate 2021-02-23 20:05:00 [facility] Respitory Rate 2021-02-23 20:05:00 [facility] [place] Height 2021-02-23 20:05:00 162.56 cm [facility] Weight 2021-02-23 20:05:00 [facility] BMI Calculated 2021-02-23 20:05:00 Sriram Larkin Procedures Procedure Date / Time Performing Source Performed Clinician POCT GLUCOSE (AUTOMATED) 2022-12-22 [facility] 16:44:00 [facility] POCT GLUCOSE (AUTOMATED) 2022-12-22 [facility] H[facility] 16:44:00 [facility] POCT GLUCOSE (AUTOMATED) 2022-12-22 Fina [facility] 11:06:00 [facility] POCT GLUCOSE (AUTOMATED) 2022-12-22 Fina [facility] 11:06:00 [facility] BASIC METABOLIC PANEL (NA, K, 2022-12-22 [facility] H[facility] CL, CO2, GLUCOSE, BUN, 10:26:00 Medical B ran CREATININE, CA) CBC WITH DIFF 2022-12-22 [facility] H[facility] 10:26:00 Medical Branch BASIC METABOLIC PANEL (NA, K, 2022-12-22 [facility] H[facility] CL, CO2, GLUCOSE, BUN, 10:26:00 Medical B ran CREATININE, CA) CBC WITH DIFF 2022-12-22 [facility] H[facility] 10:26:00 Medical Branch POCT GLUCOSE (AUTOMATED) 2022-12-22 Duke Harden [facility] ity [facility] 05:04:00 Medical Branch POCT GLUCOSE (AUTOMATED) 2022-12-[address] [facility] ity [facility] 05:04:00 Medical Branch POCT GLUCOSE (AUTOMATED) 2022-12-[address] [facility] ity [facility] 23:16:00 Medical Branch POCT GLUCOSE (AUTOMATED) 2022-12-21 [facility] 23:16:00 Medical Branch XR CHEST 1 VW 2022-12-21 Lowry, [facility] xas 22:14:57 Medical Branch XR CHEST 1 VW 2022-12-21 Low[place], [facility] xas 22:14:57 Medical Branch FL TIME OR (NON-REPORTABLE) 2022-12-21 [facility] 21:41:14 Medical Branch FL TIME OR (NON-REPORTABLE) 2022-12-21 [place], [facility] 21:41:14 Medical Branch PERMACATH PLACEMENT 2022-12-21 [facility] 20[facility]31:00 [facility] PERMACATH PLACEMENT 2022-12-21 [place], [facility] 20:31:00 Medical Branch POCT GLUCOSE (AUTOMATED) 2022-12-21 [facility] 17:16:00 Medical Branch POCT GLUCOSE (AUTOMATED) 2022-12-21 [facility] 17:16:00 Medical Branch POCT GLUCOSE (AUTOMATED) 2022-12-21 [facility] 11:08:00 Medical Branch POCT GLUCOSE (AUTOMATED) 2022-12-21 Liya [facility] ity [facility] 11:08:00 Medical Branch POCT GLUCOSE (AUTOMATED) 2022-12-21 [facility] 05:06:00 Medical Branch POCT GLUCOSE (AUTOMATED) 2022-12-21 Liya [facility] 05:06:00 Medical Branch POCT GLUCOSE (AUTOMATED) 2022-12-20 [facility] 23[facility] Branch POCT GLUCOSE (AUTOMATED) 2022-12-20 [facility] 23:00:00 Medical Branch POCT GLUCOSE (AUTOMATED) 2022-12-20 [facility] 16:50:00 Medical Branch POCT GLUCOSE (AUTOMATED) 2022-12-20 [facility] 16:50:00 Medical Branch PHOSPHORUS 2022-12-20 [facility] 09:12:00 Medical Branch MAGNESIUM 2022-12-20 [facility] 09:12:00 Medical Branch HEPATIC FUNCTION PANEL 2022-12-20 [facility] ([id number]) (ALB,T.PRO,BILI 09:12:00 Medical Branch T,BU/BC,ALT,AST,ALK PHOS) BASIC METABOLIC PANEL (NA, K, 2022-12-20 [facility] [place] CL, CO2, GLUCOSE, BUN, 09:12:00 Medical B ranch CREATININE, CA) CBC WITH DIFF 2022-12-20 [facility] 09:12:00 Medical Branch PHOSPHORUS 2022-12-20 [facility] 09:12:00 Medical Branch MAGNESIUM 2022-12-20 [facility] 09:12:00 Medical Branch HEPATIC FUNCTION PANEL 2022-12-20 [facility] ([id number]) (ALB,T.PRO,BILI 09:12:00 Medical Branch T,BU/BC,ALT,AST,ALK PHOS) BASIC METABOLIC PANEL (NA, K, 2022-12-20 [facility]o [facility] [place] CL, CO2, GLUCOSE, BUN, 09:12:00 Medical B ranch CREATININE, CA) CBC WITH DIFF 2022-12-20 [facility] xas 09:12:00 Medical Branch POCT GLUCOSE (AUTOMATED) 2022-12-20 [facility] 09:10:00 Medical Branch POCT GLUCOSE (AUTOMATED) 2022-12-20 [facility] 09:10:00 Medical Branch POCT GLUCOSE (AUTOMATED) 2022-12-20 [facility] 05:17:00 Medical Branch POCT GLUCOSE (AUTOMATED) 2022-12-20 [facility] 05:17:00 Medical Branch POCT GLUCOSE (AUTOMATED) 2022-12-19 [facility] 23:10:00 Medical Branch POCT GLUCOSE (AUTOMATED) 2022-12-19 [facility] 23:10:00 Medical Branch POCT GLUCOSE (AUTOMATED) 2022-12-19 [facility] 16:53:00 Medical Branch POCT GLUCOSE (AUTOMATED) 2022-12-19 [facility] 16:53:00 Medical Branch POCT GLUCOSE (AUTOMATED) 2022-12-19 [facility] 11:08:00 Medical Branch POCT GLUCOSE (AUTOMATED) 2022-12-19 [facility] 11:08:00 Medical Branch PHOSPHORUS 2022-12-19 [facility] xas 09:38:00 [facility] MAGNESIUM 2022-12-19 [facility] x[facility] 09:38:00 Medical Branch BASIC METABOLIC PANEL (NA, K, 2022-12-19 [facility] CL, CO2, GLUCOSE, BUN, 09:38:00 Medical B ranch CREATININE, CA) CBC WITH DIFF 2022-12-19 [facility] xas 09:38:00 [facility] PHOSPHORUS 2022-12-19 [facility] 09:38:00 [facility] MAGNESIUM 2022-12-19 [facility] 09:38:00 Medical Branch BASIC METABOLIC PANEL (NA, K, 2022-12-19 [facility], CO2, GLUCOSE, BUN, 09:38:00 Medical B ranch CREATININE, CA) CBC WITH DIFF 2022-12-19 [facility] xa 09:38:00 Medical Branch POCT GLUCOSE (AUTOMATED) 2022-12-19 [facility] 05:05:00 Medical Branch POCT GLUCOSE (AUTOMATED) 2022-12-19 [facility] 05:05:00 Medical Branch XR NECK SOFT TISSUE 2022-12-19 [facility] 03:07:00 Medical Branch XR NECK SOFT TISSUE 2022-12-19 [facility] 03:07:00 Medical Branch POCT GLUCOSE (AUTOMATED) 2022-12-18 [facility] 22:57:00 Medical Branch POCT GLUCOSE (AUTOMATED) 2022-12-18 [facility] 22:57:00 Medical Branch POCT GLUCOSE (AUTOMATED) 2022-12-18 [facility] 16:32:00 Medical Branch POCT GLUCOSE (AUTOMATED) 2022-12-18 [facility] 16:32:00 Medical Branch XR CHEST 1 VW 2022-12-18 [facility] xa 15:16:48 [facility] XR CHEST 1 VW 2022-12-18 [facility] 15:16:48 [facility] POCT GLUCOSE (AUTOMATED) 2022-12-18 [facility] 10:48:00 Medical Branch POCT GLUCOSE (AUTOMATED) 2022-12-18 [facility] 10:48:00 Medical Branch BLOOD CULTURE SCREEN 2022-12-18 [facility] 10:13:00 Medical Branch BLOOD CULTURE SCREEN 2022-12-18 [facility] 10:13:00 Medical Branch BLOOD CULTURE SCREEN 2022-12-18 [facility] 10:12:00 Medical Branch PHOSPHORUS 2022-12-18 [facility] 10:12:00 Medical Branch MAGNESIUM 2022-12-18 [facility] 10:12:00 Medical Branch BASIC METABOLIC PANEL (NA, K, 2022-12-18 [facility] CL, CO2, GLUCOSE, BUN, 10:12:00 Medical B ran CREATININE, CA) CBC WITH DIFF 2022-12-18 [facility] 10:12:00 [facility] BLOOD CULTURE SCREEN 2022-12-18 [facility] 10:12:00 [facility] PHOSPHORUS 2022-12-18 [facility] 10:12:00 [facility] MAGNESIUM 2022-12-18 [facility] 10:12:00 [facility] BASIC METABOLIC PANEL (NA, K, 2022-12-18 [facility] CL, CO2, GLUCOSE, BUN, 10:12:00 Medical B [facility] CREATININE, CA) CBC WITH DIFF 2022-12-18 Raj[facility] x[facility] 10:12:00 [facility] POCT GLUCOSE (AUTOMATED) 2022-12-18 Liya [facility] 05:42:00 Medical Branch POCT GLUCOSE (AUTOMATED) 2022-12-18 [facility] 05:42:00 Medical Branch POCT GLUCOSE (AUTOMATED) 2022-12-17 [facility] 23:26:00 Medical Branch POCT GLUCOSE (AUTOMATED) 2022-12-17 [facility], [facility] 23:26:00 Medical Branch POCT GLUCOSE (AUTOMATED) 2022-12-17 [facility], [facility] 16:58:00 Medical Branch POCT GLUCOSE (AUTOMATED) 2022-12-17 [facility], [facility] 16:58:00 Medical Branch POCT GLUCOSE (AUTOMATED) 2022-12-17 [facility] 10:39:00 Medical Branch POCT GLUCOSE (AUTOMATED) 2022-12-17 [facility], [facility] 10:39:00 Medical Branch TROPONIN I 2022-12-17 [facility] Te xas 08:37:00 Medical Branch BASIC METABOLIC PANEL (NA, K, 2022-12-17 [facility], CO2, GLUCOSE, BUN, 08:37:00 Medical B ran CREATININE, CA) CBC WITH DIFF 2022-12-17 [facility] 08:37:00 Medical Branch TROPONIN I 2022-12-17 [facility] 08:37:00 Medical Branch BASIC METABOLIC PANEL (NA, K, 2022-12-17 [facility] CL, CO2, GLUCOSE, BUN, 08:37:00 Medical B ran CREATININE, CA) CBC WITH DIFF 2022-12-17 [facility] xa 08:37:00 Medical Branch POCT GLUCOSE (AUTOMATED) 2022-12-17 Liya [facility] 04:20:00 Medical Branch POCT GLUCOSE (AUTOMATED) 2022-12-17 Liya [facility] 04:20:00 Medical [place] POCT GLUCOSE (AUTOMATED) 2022-12-16 Liya [facility] 23:24:00 Medical Branch POCT GLUCOSE (AUTOMATED) 2022-12-16 Liya [facility] 23:24:00 Medical [place] POCT GLUCOSE (AUTOMATED) 2022-12-16 Liya [facility] 16:42:00 Medical Branch POCT GLUCOSE (AUTOMATED) 2022-12-16 Liya [facility] 16:42:00 Medical Branch CATHETER TIP CULTURE 2022[facility]12-[facility] 16:13:00 Medical Branch CATHETER TIP CULTURE 2022-12-16 [facility] 16:13:00 Medical Branch POCT GLUCOSE (AUTOMATED) 2022-12-16 Liya [facility] 11:14:00 Medical Branch POCT GLUCOSE (AUTOMATED) 2022-12-16 Liya [facility] 11:14:00 Medical Branch BLOOD CULTURE SCREEN 2022-12-16 Bulmaro [facility] 10:00:00 Medical Branch BLOOD CULTURE SCREEN 2022-12-16 Bulmaro [facility] 10:00:00 Medical Branch BLOOD CULTURE SCREEN 2022-12-16 Bul[facility]o [facility] 09:49:00 Medical Branch TROPONIN I 2022-12-16 [facility] 09:49:00 Medical Branch HEPATIC FUNCTION PANEL 2022-12-16 [facility] ([id number]) (ALB,T.PRO,BILI 09:49:00 Medical Branch T,BU/BC,ALT,AST,ALK PHOS) BASIC METABOLIC PANEL (NA, K, 2022-12-16 [facility] CL, CO2, GLUCOSE, BUN, 09:49:00 Medical B ranch CREATININE, CA) VANCOMYCIN RANDOM LEVEL 2022-12-16 [facility] 09:49:00 P Medical Branch CBC WITH DIFF 2022-12-16 [facility] xa 09:49:00 Medical Branch BLOOD CULTURE SCREEN 2022-12-16 [facility] 09:49:00 Medical Branch TROPONIN I 2022-12-16 [facility] 09:49:00 Medical Branch HEPATIC FUNCTION PANEL 2022-12-16 [facility] ([id number]) (ALB,T.PRO,BILI 09:49:00 Medical Branch T,BU/BC,ALT,AST,ALK PHOS) BASIC METABOLIC PANEL (NA, K, 2022-12-16 [facility] CL, CO2, GLUCOSE, BUN, 09:49:00 Medical B ranch CREATININE, CA) VANCOMYCIN RANDOM LEVEL 2022-12-16 Nannette [facility] 09:49:00 P Medical Branch CBC WITH DIFF 2022-12-16 [facility] xas 09:49:00 Medical Branch POCT GLUCOSE (AUTOMATED) 2022-12-16 Liya [facility] 05:29:00 Medical Branch POCT GLUCOSE (AUTOMATED) 2022-12-16 [facility] 05:29:00 Medical Branch POCT GLUCOSE (AUTOMATED) 2022-12-15 Liya [facility] 23:01:00 Medical Branch POCT GLUCOSE (AUTOMATED) [facility]22[facility]12-[facility] 23:01[facility]00 Medical Branch TROPONIN I 2022-12-15 [facility] xa 22:25:00 Medical Branch TRANSFUSE PACKED RBC 2022-12-15 Elizabet Flores [facility] 22:25:00 Medical Branch TROPONIN I 2022-12-15 [facility] xa 22:25:00 Medical Branch TRANSFUSE PACKED RBC 2022-12-15 Elizabet Flores [facility] 22:25:00 Medical Branch PREPARE PACKED RBC 2022-12-15 [facility] Harden [facility] 22:05:53 Medical Branch PREPARE PACKED RBC 2022-12-15 Fina [facility] 22:05:53 [facility] Branch HEPATITIS B SURFACE ANTIBODY 2022-12-15 [facility] [place] 21:30:00 Medical Branch HEPATITIS B SURFACE ANTIGEN 2022-12-15 Elizabet Flores [facility] [place] 21:30:00 Medical Branch HEPATITIS B SURFACE ANTIBODY 2022-12-15 [facility]et Flores [facility] [place] 21:30:00 Medical Branch HEPATITIS B SURFACE ANTIGEN 2022-12-15 Elizabet Flores [facility] [place] 21:30:00 Medical Branch ABORH CONFIRMATION (LAB ONLY) 2022-12-15 [facility] [place] 17:58:00 Medical Branch ABORH CONFIRMATION (LAB ONLY) 2022-12-15 [facility] [place] 17:58:00 Medical Branch POCT GLUCOSE (AUTOMATED) 2022-12-15 [facility] 17:57:00 Medical Branch POCT GLUCOSE (AUTOMATED) 2022-12-15 [facility] 17:57:00 Medical Branch TROPONIN I 2022-12-15 [facility] xa 16:29:00 Medical Branch HB ABO GROUPING 2022-12-15 Elizabet Flores [facility] 16:29:00 Medical Branch TROPONIN I 2022-12-15 [facility] xa 16:29:00 Medical Branch HB ABO GROUPING 2022-12-15 Elizabet Flores [facility] 16:29:00 Medical Branch XR ABDOMEN 1 VW 2022-12-15 [facility], [facility] xas 13:17:17 Medical Branch XR ABDOMEN 1 VW 2022-12-15 [facility] 13:17:17 Medical Branch TRANSTHORACIC ECHO (TTE) 2022-12-15 [facility], [facility] LIMITED W/ DOPPLER AND COLOR 12:57:00 Med ical Branch TRANSTHORACIC ECHO (TTE) 2022-12-15 [facility] LIMITED W/ DOPPLER AND COLOR 12:57:00 Med ical Branch PHOSPHORUS 2022-12-15 [facility] 10:53:00 Medical Branch LIPASE 2022-12-15 [facility] 10:53:00 Medical Branch MAGNESIUM 2022-12-15 [facility] 10:53:00 Medical Branch TROPONIN I 2022-12-15 [facility], [facility] xas 10:53:00 Medical Branch BASIC METABOLIC PANEL (NA, K, 2022-12-15 [facility], [facility], CO2, GLUCOSE, BUN, 10:53:00 Medical B [facility] CREATININE, CA) CBC WITH DIFF 2022-12-15 [facility], [facility] xas 10:53:00 Medical Branch N-TERMINAL PRO-BNP 2022-12-15 [facility], [facility] 10:53:00 Medical Branch PHOSPHORUS 2022-12-15 [facility] 10:53:00 Medical Branch LIPASE 2022-12-15 [facility], [facility] xas 10:53:00 Medical Branch MAGNESIUM 2022-12-15 [facility] 10:53:00 Medical Branch TROPONIN I 2022-12-15 [facility] 10:53:00 Medical Branch BASIC METABOLIC PANEL (NA, K, 2022-12-15 [facility] [place] CL, CO2, GLUCOSE, BUN, 10:53:00 Medical B ran CREATININE, CA) CBC WITH DIFF 2022-12-15 [facility], [facility] xa 10:53:00 Medical Branch N-TERMINAL PRO-BNP 2022-12-15 [facility], [facility] 10:53:00 Medical Branch POCT GLUCOSE (AUTOMATED) 2022-12-15 [facility], [facility] 10:43:00 Medical Branch POCT GLUCOSE (AUTOMATED) 2022-12-15 [facility], [facility] 10:43:00 Medical Branch COMP. METABOLIC PANEL ([id number]) 2022-12-15 [facility] 07:02:00 Medical Branch CBC WITH DIFF 2022-12-15 [facility], [facility] xa 07:02:00 Medical Branch LACTIC ACID WHOLE BLOOD 2022-12-15 [facility] 07:02:00 Medical Branch COMP. METABOLIC PANEL ([id number]) 2022-12-15 [facility] 07:02[facility]00 Medical Branch CBC WITH DIFF 2022-12-15 [facility], [facility] xa 07:02:00 Medical Branch LACTIC ACID WHOLE BLOOD 2022-12-15 [facility], [facility] 07:02:00 Medical Branch TROPONIN I 2022-12-15 [facility], [facility] xas 05:08:00 Medical Branch MRSA / MSSA SCREEN BY PCR, 2022-12-15 [facility] 05:08:00 Medical Branch TROPONIN I 2022-12-15 [facility] xas 05:08:00 Medical Branch MRSA / MSSA SCREEN BY PCR, 2022-12-15 [facility] 05:08:00 Medical Branch EXTERNAL PROVIDER RECORDS 2022-12-15 Doctor Unassigned, [facility] 05:01:00 [place] [facility] EXTERNAL PROVIDER RECORDS 2022-12-15 Doctor Unassigned, [facility] 05:01:00 [place] [facility] POCT GLUCOSE (AUTOMATED) 2022-12-15 [facility] 04:59:00 Medical Branch POCT GLUCOSE (AUTOMATED) 2022-12-15 Tavo Nickerson [facility] 04:59:00 Medical Branch XR FOOT 3+ VW RIGHT 2022-12-14 Sarahy Durán [facility] 23:40:41 Medical Branch XR FOOT 3+ VW RIGHT 2022-12-14 Sarahy Durán [facility] 23:40:41 Medical Branch NOTICE OF PRIVACY PRACTICES 2022-12-14 Doctor Unassigned, [facility] 23:30:56 [place] [facility] NOTICE OF PRIVACY PRACTICES 2022-12-14 Doctor Unassigned, [facility] 23:30:56 [place] [facility] CONSENT/REFUSAL FOR DIAGNOSIS 2022-12-14 Doctor Unassigned, [facility] 23:30:30 [place] [facility] CONSENT/REFUSAL FOR DIAGNOSIS 2022-12-14 Doctor Unassigned, [facility] 23:30:30 [place] [facility] ASSIGNMENT OF BENEFITS 2022-12-14 Doctor Unassigned, [facility] 23:30:08 [place] [facility] ASSIGNMENT OF BENEFITS 2022-12-14 Doctor Unassigned, [facility] 23:30:[address] [place] [facility] [address] ABDOMEN PELVIS WO CONTRAST 2022-12-14 Sarahy Durán [facility] 23:30:[address] ABDOMEN PELVIS WO CONTRAST 2022-12-14 Sarahy Durán [facility] 23:30:00 Medical Branch XR CHEST 1 VW 2022-12-14 Sarahy Durán [facility] 23:20:00 Medical Branch XR CHEST 1 VW 2022-12-14 Sarahy Durán [facility] 23:20:00 Medical Branch HB ECG ROUTINE & RHYTHM STRIP 2022-12-14 Sarahy Durán [facility] 23:09:39 Medical Branch HB ECG ROUTINE & RHYTHM STRIP 2022-12-14 Sarahy Durán [facility] 23:09:39 Medical Branch POCT GLUCOSE (AUTOMATED) 2022-12-14 Sarahy Durán [facility] 22:56:00 Medical Branch POCT GLUCOSE (AUTOMATED) 2022-12-14 Sarahy Durán [facility] 22:56:00 Medical Branch LACTIC ACID WHOLE BLOOD 2022-12-14 Sarahy Durán [facility] 22:50:00 Medical Branch LACTIC ACID WHOLE BLOOD 2022-12-14 Sarahy Durán [facility] 22:50:00 Medical Branch LIPASE 2022-12-14 [facility] [place] 22:49:00 Medical Branch MAGNESIUM 2022-12-14 [facility] xas 22:49:00 Medical Branch TROPONIN I 2022-12-14 [facility] 22:49:00 Medical Branch COMP. METABOLIC PANEL ([id number]) 2022-12-14 Sarahy Durán [facility] 22:49:00 Medical Branch CBC WITH DIFF 2022-12-14 Sarahy Durán [place] 22:49:00 Medical Branch N-TERMINAL PRO-BNP 2022-12-14 Sarahy Durán [facility] 22:49:00 Medical Branch BLOOD CULTURE WORKUP 2022-12-14 [facility] 22:49:00 Medical Branch BLOOD CULTURE WORKUP 2022-12-14 David [facility] 22:49:00 Medical Branch GRAM POSITIVE BLOOD PATHOGENS 2022-12-14 [facility] DNA PROBE-AEROBIC 22:49:00 Medical Branch BLOOD CULTURE SCREEN 2022-12-14 Sarahy Durán [facility] 22:49:00 Medical Branch LIPASE 2022-12-14 [facility] [place] 22:49:00 Medical Branch MAGNESIUM 2022-12-14 [facility] [place] 22:49:00 Medical Branch TROPONIN I 2022-12-14 [facility] [place] 22:49:00 Medical Branch COMP. METABOLIC PANEL ([id number]) 2022-12-14 [facility] 22:49:00 Medical Branch CBC WITH DIFF 2022-12-14 Luis Armando [facility] 22:49:00 Medical Branch N-TERMINAL PRO-BNP 2022-12-14 Sarahy Durán [facility] 22:49:00 Medical Branch BLOOD CULTURE WORKUP 2022-12-14 David [facility] 22:49:00 Medical Branch BLOOD CULTURE WORKUP 2022-12-14 [facility] 22:49:00 Medical Branch GRAM POSITIVE BLOOD PATHOGENS 2022-12-14 [facility] DNA PROBE-AEROBIC 22:49:00 Medical Branch BLOOD CULTURE SCREEN 2022-12-14 [facility] 22:49:00 [facility] [place] POCT GLUCOSE (AUTOMATED) 2022-11-07 [facility] 21:57:00 [facility] [place] POCT GLUCOSE (AUTOMATED) 2022-11-07 [facility] 16:44:00 [facility] [place] POCT GLUCOSE (AUTOMATED) 2022-11-07 [facility] 13:11:00 [facility] BASIC METABOLIC PANEL (NA, K, 2022-11-07 Zaire [facility] CL, CO2, GLUCOSE, BUN, 08:55:00 [facility] ran CREATININE, CA) CBC WITH DIFF 2022-11-07 [facility] 08:55:00 [facility] [place] POCT GLUCOSE (AUTOMATED) 2022-11-06 [facility] 21:39:00 [facility] [place] POCT GLUCOSE (AUTOMATED) 2022-11-06 [facility] 16:26:00 [facility] TROPONIN I 2022-11-06 kwaku [facility] x[facility] 14:09:00 Medical Branch HEPATITIS B SURFACE ANTIBODY 2022-11-06 [facility] 14:[facility] HEPATITIS B SURFACE ANTIGEN 2022-11-06 Enrrique Hodges [facility] 14:09:00 Medical Branch POCT GLUCOSE (AUTOMATED) 2022-11-06 [facility] 12:39:00 [facility] BASIC METABOLIC PANEL (NA, K, 2022-11-06 Shlomo [facility] CL, CO2, GLUCOSE, BUN, 08:56:00 [facility] ran CREATININE, CA) CBC WITH DIFF 2022-11-06 Shlomo [facility] 08:56:00 [facility] N-TERMINAL PRO-BNP 2022-11-06 Zaire [facility] 08:56:00 [facility] EXTERNAL PROVIDER RECORDS 2022-11-06 Doctor Unassigned, [facility] 05:01:00 [place] [facility] [place] DISCLOSURE AND CONSENT, 2022-11-06 Doctor Unassigned, [facility] MEDICAL AND SURGICAL 05:01:00 [place] [facility] PROCEDURES POCT GLUCOSE (AUTOMATED) 2022-11-06 [facility] 01:40:00 [facility] POCT GLUCOSE (AUTOMATED) 2022-11-05 [facility] 22:02:00 [facility] POCT GLUCOSE (AUTOMATED) 2022-11-05 [facility] 16:39:00 [facility] TRANSTHORACIC ECHO (TTE) 2022-11-05 [facility] COMPLETE W/ CONTRAST 14:33:00 [facility] POCT GLUCOSE (AUTOMATED) 2022-11-05 [facility] 12:53:00 Medical [facility] PHOSPHORUS 2022-11-05 Liya [facility] 09:24:00 [facility] MAGNESIUM 2022-11-05 [facility] 09:24:00 [facility] TROPONIN I 2022-11-05 [facility] 09:24:00 [facility] COMP. METABOLIC PANEL ([id number]) 2022-11-05 [facility] Tavo [facility] 09:24:00 [facility] LIPID PANEL ([id number])(TOTAL 2022-11-05 [facility] CHOLESTEROL, TRIGLYCERIDES, 09:24:00 [facility] HDL) CBC WITH DIFF 2022-11-05 [facility] 09:24:00 Medical Branch N-TERMINAL PRO-BNP 2022-11-05 Liya [facility] 09:24:00 Medical Branch TROPONIN I 2022-11-05 Liya G[facility] 02:39:00 [facility] BLOOD CULTURE SCREEN 2022-11-04 Katherin Persaud [facility] 21:48:00 [facility] RAPID INFLUENZA A/B 2022-11-04 Katherin Persaud [facility] 20:50:00 [facility] WOUND CULTURE 2022-11-04 Katherin Persaud [facility] 20:50:00 [facility] COVID-19 (ID NOW RAPID 2022-11-04 Katherin Persaud [facility] TESTING) 20:50:00 Medical Branch LAB ONLY COVID INTERPRETATION 2022-11-04 Katherin Persaud [facility] 20:50:00 [facility] XR CHEST 1 VW 2022-11-04 Katherin Persaud [facility] 20:29:26 [facility] HB ECG ROUTINE & RHYTHM STRIP 2022-11-04 Katherin Persaud [facility] 19:39:09 [facility] PHOSPHORUS 2022-11-04 Katherin Persaud [facility] 19:31:00 [facility] CREATINE KINASE 2022-11-04 Katherin Persaud [facility] 19:31:00 [facility] MAGNESIUM 2022-11-04 Katherin Persaud [facility] 19:31:00 [facility] TROPONIN I 2022-11-04 Katherin Persaud [facility] 19:31:00 [facility] FREE T4 2022-11-04 Liya Guthrie [facility] 19:31:00 [facility] THYROID STIMULATING HORMONE 2022-11-04 [facility] 19:31:00 [facility] COMP. METABOLIC PANEL ([id number]) 2022-11-04 Katherin Persaud [facility] 19:31:00 [facility] CBC WITH DIFF 2022-11-04 Katherin Persaud [facility] 19:31:00 [facility] GLYCOSYLATED HEMOGLOBIN (A1C) 2022-11-04 Liya [facility] 19:31:00 [facility] URINALYSIS 2022-11-04 Katherin Persaud [facility] 19:31:00 Medical Branch N-TERMINAL PRO-BNP 2022-11-04 Katherin Persaud [facility] 19:31:00 Medical Branch FREE T3 2022-11-04 Tavo Nickerson [facility] 19:31:00 Medical Branch LACTIC ACID WHOLE BLOOD 2022-11-04 Katherin Persaud [facility] 19:30:00 Medical Branch [id number] 2022-07-06 [facility] 00:00:00 [facility] [id number] 2022-07-04 [facility] 00:00:00 [facility] [id number] 2022-07-01 [facility] 00:00:00 [facility] [id number] 2022-06-29 [facility] 00:00:00 [facility] [id number] 2022-06-28 [facility] 00:00:00 [facility] [id number] 2022-06-27 [facility] 00:00:00 [facility] [id number] 2022-06-27 [facility] 00:00:00 [facility] [id number] 2022-06-27 [facility] 00:00:00 [facility] [id number] 2022-06-27 [facility] 00:00:00 [facility] [id number] 2022-06-26 [facility] 00:00:00 [facility] [id number] 2022-06-26 [facility] 00:00:00 [facility] [id number] 2022-06-26 [facility] 00:00:00 [facility] [id number] 2022-06-26 [facility] 00:00:00 [facility] [id number] 2022-06-26 [facility] 00:00:00 [facility] [id number] 2022-06-24 [facility] 00:00:00 [facility] [id number] 2022-06-23 [facility] 00:00:00 [facility] [id number] 2022-06-22 [facility] 00:00:00 [facility] POC GLUCOSE 2022-04-26 [facility] pital 16:04:00 E. VA AN ELECTIVE ENDOTRACHEAL 2022-04-26 [facility] AIRWAY 15:12:00 LAPAROSCOPIC REMOVAL OR 2022-04-26 [facility] REPOSITIONING OF PERITONEAL 14:56:00 E. DIALYSIS CATHETER ESTIMATED GFR 2022-04-26 [facility] pital 13:00:00 E. POC PANEL 2022-04-26 [facility] pital 13:00:00 E. POC GLUCOSE 2022-03-06 [facility] pital 16:00:00 E. SURGICAL PATHOLOGY REQUEST 2022-03-06 [facility] 15:28:00 E. POC GLUCOSE 2022-03-06 [facility] pital 15:23:00 E. ANESTHESIA INTUBATION 2022-03-06 [facility] 12:57:00 CHOLECYSTECTOMY, LAPAROSCOPIC 2022-03-06 [facility] 12:44:00 E. INSERTION, CATHETER, 2022-03-06 [facility] DIALYSIS, PERITONEAL, 12:44:00 E. LAPAROSCOPIC ESTIMATED GFR 2022-03-06 [facility] E. POC PANEL 2022-03-06 [facility] 11:50:00 E. BASIC METABOLIC PANEL 2022-03-06 [facility] 11:40:00 ESTIMATED GFR 2022-03-06 [facility] 11:40:00 CBC WITH PLATELET AND 2022-03-01 [facility] DIFFERENTIAL 18:18:00 HEMOGLOBIN A1C 2022-03-01 [facility] 18:18:00 PARTIAL THROMBOPLASTIN TIME 2022-03-01 [facility] (PTT) 18:18:00 PROTHROMBIN TIME WITH INR 2022-03-01 [facility] 18:18:00 REFERRAL- REQUEST/RESPONSE 2022-02-07 Doctor Unassigned, [facility] 05:01:00 [place] [facility] ECG PRE/POST OP 2021-12-12 [facility] 20:54:02 CBC WITH PLATELET AND 2021-12-12 [facility] DIFFERENTIAL 20:25:00 HEMOGLOBIN A1C 2021-12-12 [facility] 20:25:00 TYPE AND SCREEN 2021-12-12 [facility] 20:25:00 PHACOEMULSIFICATION OF 2020-10-14 [facility] CATARACT WITH INTRAOCULAR 13:33:00 [place] [facility] LENS IMPLANT POCT GLUCOSE (AUTOMATED) 2020-10-14 [facility] 12:38:00 [place] [facility] POCT GLUCOSE(AGE >30DAYS) 2020-10-14 Anita Edwards [facility] 12:35:00 Medical Branch ASSIGNMENT OF BENEFITS 2020-10-12 Doctor Unassigned, [facility] 16:32:53 [place] [facility] POCT GLUCOSE(AGE >30DAYS) 2020-04-01 Grant Skinner [facility] 12:03:00 Medical Branch ASSIGNMENT OF BENEFITS 2020-03-30 Doctor Unassigned, [facility] 16:01:28 [place] [facility] NOTICE OF BILLING PRACTICES 2020-03-23 Doctor Unassigned, [facility] FOR MEDICARE PATIENTS 20:49:43 [place] [facility] anch [facility] PATIENT FINANCIAL POLICY 2020-03-23 Doctor Unassigned, [facility] 20:49:19 [place] [facility] NO SHOW OR MISSED APPOINTMENT 2020-03-23 Doctor Unarajatigned, [facility] POLICY ACKNOWLEDGEMENT 20:48:59 [place] [facility] B ranch NOTICE OF PRIVACY PRACTICES 2020-03-23 Doctor Unassigned, [facility] 20:48:48 [place] [facility] CONSENT/REFUSAL FOR DIAGNOSIS 2020-03-23 Doctor Unassigned, [facility] AND TREATMENT 20:48:30 [place] [facility] ASSIGNMENT OF BENEFITS 2020-03-23 Doctor Unassigned, [facility] 20:48:19 [place] [facility] PHYSICIAN ORDERS 2020-03-23 Doctor Unassigned, [facility] 05:01:00 [place] [facility] Knee replacement<sup>2</sup> Mem orial [facility] Fusion<sup>1</sup> [facility] Plan of Care Planned Activity Planned Date Details Comments Source Future Scheduled 2023-05-02 [facility] 19:11:14 malignant neoplasm of colon (procedure) [code = 223384156] Future Scheduled 2023-05-02 [facility] 19:11:14 malignant neoplasm of colon (procedure) [code = 084761486] Future Scheduled 2023-05-02 [facility] 19:11:14 malignant neoplasm of colon (procedure) [code = 261893412] Future Scheduled 2023-05-02 Hepatitis C screening [facility] Test 19:11:14 (procedure) [code = 256991809] Future Scheduled 2023-05-02 BREAST CANCER [facility] Test 19:11:14 SCREENING [code = BREAST CANCER SCREENING] Future Scheduled 2023-05-02 [facility] 19:11:14 malignant neoplasm of colon (procedure) [code = 772960438] Future Scheduled 2023-05-02 [facility] 19:11:14 malignant neoplasm of colon (procedure) [code = 633969976] Future Scheduled 2023-05-02 [facility]IN[facility] ([facility] 19:11:14 of 2) [code = SHINGLES VACCINES (1 of 2)] Future Scheduled 2023-05-02 65+ PNEUMOCOCCAL [facility] Test 19:11:14 VACCINE (3 - PCV) [code = 65+ PNEUMOCOCCAL VACCINE (3 - PCV)] Future Scheduled 2023-05-02 COVID-19 VACCINE (6 - [facility] Test 19:11:14 season) [code = COVID-19 VACCINE (6 - season)] Future Scheduled 2023-05-02 [facility] 19:11:14 [code = INFLUENZA VACCINE (#1)] Future Scheduled 2023-05-02 [facility] 19:11:14 malignant neoplasm of colon (procedure) [code = 435267803] Future Scheduled 2023-05-02 [facility] 19:11:14 malignant neoplasm of colon (procedure) [code = 258476240] Future Scheduled 2023-05-02 [facility] 19:11:14 malignant neoplasm of colon (procedure) [code = 485624361] Future Scheduled 2023-05-02 Hepatitis C screening [facility] Test 19:11:14 (procedure) [code = 952597363] Future Scheduled 2023-05-02 BREAST CANCER [facility] Test 19:11:14 SCREENING [code = BREAST CANCER SCREENING] Future Scheduled 2023-05-02 Screening for [facility] Test 19:11:14 malignant neoplasm of colon (procedure) [code = 215769388] Future Scheduled 2023-05-02 Screening for [facility] Test 19:11:14 malignant neoplasm of colon (procedure) [code = 496959622] Future Scheduled 2023-05-02 SHINGLES VACCINES (1 Met [facility] Test 19:11:14 of 2) [code = SHINGLES VACCINES (1 of 2)] Future Scheduled 2023-05-02 65+ PNEUMOCOCCAL [facility] Test 19:11:14 VACCINE (3 - PCV) [code = 65+ PNEUMOCOCCAL VACCINE (3 - PCV)] Future Scheduled 2023-05-02 COVID-19 VACCINE (6 - [facility] Test 19:11:14 season) [code = COVID-19 VACCINE (6 - season)] Future Scheduled 2023-05-02 INFLUENZA VACCINE (#1) [facility] Test 19:11:14 [code = INFLUENZA VACCINE (#1)] Future Scheduled 2023-03-25 Screening for [facility] Test 19:57:38 malignant neoplasm of colon (procedure) [code = 538483254] Future Scheduled 2023-03-25 Screening for [facility] Test 19:57:38 malignant neoplasm of colon (procedure) [code = 516313602] Future Scheduled 2023-03-25 Screening for [facility] Test 19:57:38 malignant neoplasm of colon (procedure) [code = 139130530] Future Scheduled 2023-03-25 Hepatitis C screening [facility] Test 19:57:38 (procedure) [code = 201252250] Future Scheduled 2023-03-25 [facility] 19:57:38 SCREENING [code = BREAST CANCER SCREENING] Future Scheduled 2023-03-25 [facility] 19:57:38 malignant neoplasm of colon (procedure) [code = 859017702] Future Scheduled 2023-03-25 [facility] 19:57:38 malignant neoplasm of colon (procedure) [code = 441043954] Future Scheduled 2023-03-25 SHINGLES [facility]ACCINES ([facility] 19:57:38 of 2) [code = SHINGLES VACCINES (1 of 2)] Future Scheduled 2023-03-25 65+ [facility]CCAL [facility] 19:57:38 VACCINE (3 - PCV) [code = 65+ PNEUMOCOCCAL VACCINE (3 - PCV)] Future Scheduled 2023-03-25 COVID-19 VACCINE (6 - [facility] Test 19:57:38 Pfizer series) [code = COVID-19 VACCINE (6 - Pfizer series)] Future Scheduled 2023-03-25 [facility] 19:57:38 [code = INFLUENZA VACCINE [...] Vaccine (#1)] Future Scheduled 2023-03-04 [facility] 13:22:55 malignant neoplasm of colon (procedure) [code = 312690660] Future Scheduled 2023-03-04 [facility] 13:22:55 malignant neoplasm of colon (procedure) [code = 992138560] Future Scheduled 2023-03-04 Screening for [facility] Test 13:22:55 malignant neoplasm of colon (procedure) [code = 296879328] Future Scheduled 2023-03-04 Hepatitis C screening [facility] Test 13:22:55 (procedure) [code = 111470251] Future Scheduled 2023-03-04 BREAST CANCER [facility] Test 13:22:55 SCREENING [code = BREAST CANCER SCREENING] Future Scheduled 2023-03-04 Screening for [facility] Test 13:22:55 malignant neoplasm of colon (procedure) [code = 452052280] Future Scheduled 2023-03-04 Screening for [facility] Test 13:22:55 malignant neoplasm of colon (procedure) [code = 610344948] Future Scheduled 2023-03-04 SHINGLES VACCINES (1 Met [facility] Test 13:22:55 of 2) [code = SHINGLES VACCINES (1 of 2)] Future Scheduled 2023-03-04 65+ PNEUMOCOCCAL [facility] Test 13:22:55 VACCINE (3 - PCV) [code = 65+ PNEUMOCOCCAL VACCINE (3 - PCV)] Future Scheduled 2023-03-04 COVID-19 VACCINE (6 - [facility] Test 13:22:55 Pfizer series) [code = COVID-19 VACCINE (6 - Pfizer series)] Future Scheduled 2023-03-04 INFLUENZA VACCINE (#1) [facility] Test 13:22:55 [code = INFLUENZA VACCINE (#1)] Future Scheduled 2023-01-27 Screening for [facility] Test 15:11:15 malignant neoplasm of colon (procedure) [code = 284451726] Future Scheduled 2023-01-27 Screening for [facility] Test 15:11:15 malignant neoplasm of colon (procedure) [code = 045441306] Future Scheduled 2023-01-27 Screening for [facility] Test 15:11:15 malignant neoplasm of colon (procedure) [code = 280058921] Future Scheduled 2023-01-27 Hepatitis C screening [facility] Test 15:11:15 (procedure) [code = 916644330] Future Scheduled 2023-01-27 BREAST CANCER [facility] Test 15:11:15 SCREENING [code = BREAST CANCER SCREENING] Future Scheduled 2023-01-27 [facility] 15:11:15 malignant neoplasm of colon (procedure) [code = 219452318] Future Scheduled 2023-01-27 [facility] 15:11:15 malignant neoplasm of colon (procedure) [code = 176253644] Future Scheduled 2023-01-27 SHINGLES VACCINES (1 Met [facility] Test 15:11:15 of 2) [code = SHINGLES VACCINES (1 of 2)] Future Scheduled 2023-01-27 65+ [facility]CCAL [facility] 15:11:15 VACCINE (3 - PCV) [code = 65+ PNEUMOCOCCAL VACCINE (3 - PCV)] Future Scheduled 2023-01-27 COVID-19 VACCINE (6 - [facility] Test 15:11:15 Pfizer series) [code = COVID-19 VACCINE (6 - Pfizer series)] Future Scheduled 2023-01-27 INFLUENZA VACCINE [facility] Test 15:11:15 [code = INFLUENZA VACCINE] Future Scheduled 2022-11-03 Hepatitis C screening [facility] Test 07:38:23 (procedure) [code = 984448808] Future Scheduled 2022-11-03 SHINGLES VACCINES (1 Met [facility] Test 07:38:23 of 2) [code = SHINGLES VACCINES (1 of 2)] Future Scheduled 2022-11-03 BREAST CANCER [facility] Test 07:38:23 SCREENING [code = BREAST CANCER SCREENING] Future Scheduled 2022-11-03 COLONOSCOPY SCREENING [facility] Test 07:38:23 [code = COLONOSCOPY SCREENING] Future Scheduled 2022-11-03 65+ [facility]CCAL [facility] 07:38:23 VACCINE (3 - PCV) [code = 65+ PNEUMOCOCCAL VACCINE (3 - PCV)] Future Scheduled 2022-11-03 INFLUENZA VACCINE [facility] Test 07:38:23 [code = INFLUENZA VACCINE] Future Scheduled 2022-11-03 Hepatitis C screening [facility] Test 07:38:23 (procedure) [code = 368717023] Future Scheduled 2022-11-03 SHINGLES VACCINES (1 Met [facility] Test 07:38:23 of 2) [code = SHINGLES VACCINES (1 of 2)] Future Scheduled 2022-11-03 BREAST CANCER [facility] Test 07:38:23 SCREENING [code = BREAST CANCER SCREENING] Future Scheduled 2022-11-03 COLONOSCOPY SCREENING [facility] Test 07:38:23 [code = COLONOSCOPY SCREENING] Future Scheduled 2022-11-03 65+ [facility]CCAL [facility] Test 07:38:23 VACCINE (3 - PCV) [code = 65+ PNEUMOCOCCAL VACCINE (3 - PCV)] Future Scheduled 2022-11-03 INFLUENZA VACCINE [facility] Test 07:38:23 [code = INFLUENZA VACCINE] Future Scheduled 2022-10-09 Hepatitis C screening [facility] Test 14:08:24 (procedure) [code = 652934882] Future Scheduled 2022-10-09 SHINGLES VACCINES (1 Met [facility] Test 14:08:24 of 2) [code = SHINGLES VACCINES (1 of 2)] Future Scheduled 2022-10-09 BREAST CANCER [facility] Test 14:08:24 SCREENING [code = BREAST CANCER SCREENING] Future Scheduled 2022-10-09 COLONOSCOPY SCREENING [facility] Test 14:08:24 [code = COLONOSCOPY SCREENING] Future Scheduled 2022-10-09 65+ [facility]UMOCOCC[address] [facility] Test 14:08:24 VACCINE (3 - PCV) [code = 65+ PNEUMOCOCCAL VACCINE (3 - PCV)] Future Scheduled 2022-10-09 INFLUENZA VACCINE [facility] Test 14:08:24 [code = INFLUENZA VACCINE] Future Scheduled 2022-10-09 Hepatitis C screening [facility] Test 14:08:24 (procedure) [code = 725149363] Future Scheduled 2022-10-09 SHINGLES VACCINES (1 Met [facility] Test 14:08:24 of 2) [code = SHINGLES VACCINES (1 of 2)] Future Scheduled 2022-10-09 [facility] 14:08:24 SCREENING [code = BREAST CANCER SCREENING] Future Scheduled 2022-10-09 COLONOSCOPY SCREENING [facility] Test 14:08:24 [code = COLONOSCOPY SCREENING] Future Scheduled 2022-10-09 65+ [facility]CCAL [facility] 14:08:24 VACCINE (3 - PCV) [code = 65+ PNEUMOCOCCAL VACCINE (3 - PCV)] Future Scheduled 2022-10-09 INFLUENZA VACCINE [facility] Test 14:08:24 [code = INFLUENZA VACCINE] Future Scheduled 2022-10-09 Hepatitis C screening [facility] Test 14:08:24 (procedure) [code = 451312389] Future Scheduled 2022-10-09 SHINGLES VACCINES (1 Met [facility] Test 14:08:24 of 2) [code = SHINGLES VACCINES (1 of 2)] Future Scheduled 2022-10-09 BREAST CANCER [facility] Test 14:08:24 SCREENING [code = BREAST CANCER SCREENING] Future Scheduled 2022-10-09 COLONOSCOPY SCREENING [facility] Test 14:08:24 [code = COLONOSCOPY SCREENING] Future Scheduled 2022-10-09 65+ [facility]NEUMOCOCC[address] [facility] Test 14:08:24 VACCINE (3 - PCV) [code = 65+ PNEUMOCOCCAL VACCINE (3 - PCV)] Future Scheduled 2022-10-09 INFLUENZA VACCINE [facility] Test 14:08:24 [code = INFLUENZA VACCINE] Future Scheduled 2022-09-25 Hepatitis C screening [facility] Test 16:30:22 (procedure) [code = 328477281] Future Scheduled 2022-09-25 SHINGLES VACCINES (1 Met [facility] Test 16:30:22 of 2) [code = SHINGLES VACCINES (1 of 2)] Future Scheduled 2022-09-25 BREAST CANCER [facility] Test 16:30:22 SCREENING [code = BREAST CANCER SCREENING] Future Scheduled 2022-09-25 COLONOSCOPY SCREENING [facility] Test 16:30:22 [code = COLONOSCOPY SCREENING] Future Scheduled 2022-09-25 65+ PNEUMOCOCCAL [facility] Test 16:30:22 VACCINE (3 - PCV) [code = 65+ PNEUMOCOCCAL VACCINE (3 - PCV)] Future Scheduled 2022-09-25 INFLUENZA VACCINE [facility] Test 16:30:22 [code = [...] Future Scheduled 2022-06-22 Hepatitis C screening [facility] Test 00:46:40 (procedure) [code = 739862966] Future Scheduled 2022-06-22 SHINGLES VACCINES (1 Met [facility] Test 00:46:40 of 2) [code = SHINGLES VACCINES (1 of 2)] Future Scheduled 2022-06-22 [facility] 00:46:40 SCREENING [code = BREAST CANCER SCREENING] Future Scheduled 2022-06-22 COLONOSCOPY SCREENING [facility] Test 00:46:40 [code = COLONOSCOPY SCREENING] Future Scheduled 2022-06-22 65+ [facility] 00:46:40 VACCINE (3 - PCV) [code = 65+ PNEUMOCOCCAL VACCINE (3 - PCV)] Future Scheduled 2022-06-22 [facility]:46[facility]40 [code = INFLUENZA VACCINE] Future Scheduled 2022-06-22 Hepatitis C screening [facility] Test 00:46:40 (procedure) [code = 087714842] Future Scheduled 2022-06-22 SHINGLES VACCINES (1 Met [facility] Test 00:46:40 of 2) [code = SHINGLES VACCINES (1 of 2)] Future Scheduled 2022-06-22 [facility] 00:46:40 SCREENING [code = BREAST CANCER SCREENING] Future Scheduled 2022-06-22 COLONOSCOPY SCREENING [facility] Test 00:46:40 [code = COLONOSCOPY SCREENING] Future Scheduled 2022-06-22 65+ [facility] 00:46:40 VACCINE (3 - PCV) [code = 65+ PNEUMOCOCCAL VACCINE (3 - PCV)] Future Scheduled 2022-06-22 [facility]ACCINE [facility] 00:46:40 [code = INFLUENZA VACCINE] Future Scheduled 2022-06-22 Hepatitis C screening [facility] Test 00:46:40 (procedure) [code = 299136071] Future Scheduled 2022-06-22 SHINGLES VACCINES (1 Met [facility] Test 00:46:40 of 2) [code = SHINGLES VACCINES (1 of 2)] Future Scheduled 2022-06-22 BREAST CANCER [facility] Test 00:46:40 SCREENING [code = BREAST CANCER SCREENING] Future Scheduled 2022-06-22 COLONOSCOPY SCREENING [facility] Test 00:46:40 [code = COLONOSCOPY SCREENING] Future Scheduled 2022-06-22 65+ [facility]AL [facility] 00:46:40 VACCINE (3 - PCV) [code = 65+ PNEUMOCOCCAL VACCINE (3 - PCV)] Future Scheduled 2022-06-22 [facility]ZA VACCINE [facility] 00:46:40 [code = INFLUENZA VACCINE] Future Scheduled 2022-06-11 HEPATITIS B VACCINES Met [facility] Test 01:18:56 (1 of 3 - 3-dose series) [code = HEPATITIS B VACCINES (1 of 3 - 3-dose series)] Future Scheduled 2022-06-11 Hepatitis C screening [facility] Test 01:18:56 (procedure) [code = 427085458] Future Scheduled 2022-06-11 SHINGLES VACCINES (1 Met [facility] Test 01:18:56 of 2) [code = SHINGLES VACCINES (1 of 2)] Future Scheduled 2022-06-11 BREAST CANCER [facility] Test 01:18:56 SCREENING [code = BREAST CANCER SCREENING] Future Scheduled 2022-06-11 COLONOSCOPY SCREENING [facility] Test 01:18:56 [code = COLONOSCOPY SCREENING] Future [facility]procedure[facility] [code = 034719140] Future Scheduled [address] [facility] (procedure) [code = 846033911] Future Scheduled 1956 [facility] Future Scheduled [facility] Future Scheduled [address] [facility] 00:00:00 [facility] breast (procedure) [code = 918182979] Future Scheduled [address] [facility] Test 00:00:00 (combo) [code = CT Medical C enter Colonography (combo)] Future Scheduled [address] [facility] Test 00:00:00 [facility] (procedure) [code = 966946414] Future Scheduled [address] [facility] 00:00:00 [facility] (procedure) [code = 848280296] Future Scheduled 1956 DXA SCAN [code = DXA [facility] Test 00:00:00 SCAN] [facility] Future Scheduled [address] [facility] 00:00:00 [facility] (procedure) [code = 471930612] Future Scheduled [address] [facility] 00:00:00 [facility] colon (procedure) [code = 973120222] Future Scheduled 1956 [facility] Future Scheduled [address] [facility] 00:00:00 [facility] breast (procedure) [code = 593817742] Future Scheduled [address] [facility] 00:00:00 (combo) [code = CT Medical C enter Colonography (combo)] Future Scheduled [address] [facility] 00:00:00 [facility] (procedure) [code = 127938730] Future Scheduled [address] [facility] 00:00:00 [facility] colon (procedure) [code = 152158664] Future Scheduled 1956 DXA SCAN [code = DXA [facility] 00:00:00 SCAN] [facility] Future Scheduled [address] [facility] 00:00:00 [facility] colon (procedure) [code = 523038119] Future Scheduled [address] [facility] 00:00:00 [facility] colon (procedure) [code = 377789428] Future Scheduled 1956 [facility] Future Scheduled [address] [facility] 00:00:00 [facility] breast (procedure) [code = 686416902] Future Scheduled [address] [facility] 00:00:00 (combo) [code = CT Medical C enter Colonography (combo)] Future Scheduled [address] [facility] 00:00:00 [facility] colon (procedure) [code = 366801660] Future Scheduled [address] [facility] 00:00:00 [facility] colon (procedure) [code = 744137518] Future Scheduled 1956 DXA SCAN [code = DXA [facility] 00:00:00 SCAN] [facility] Future Scheduled [address] [facility] 00:00:00 [facility] colon (procedure) [code = 840573649] Future Scheduled [address] [facility] 00:00:00 [facility] colon (procedure) [code = 958842529] Future Scheduled 1956 [facility] Future Scheduled [address] [facility] 00:00:00 [facility] breast (procedure) [code = 858280161] Future Scheduled [address] [facility] 00:00:00 (combo) [code = CT Medical C enter Colonography (combo)] Future Scheduled [address] [facility] 00[facility]00:00 [facility] colon (procedure) [code = 737446602] Future Scheduled [address] [facility] 00:00:00 [facility] colon (procedure) [code = 467024102] Future Scheduled 1956 DXA SCAN [code = DXA [facility] Test 00:00:00 SCAN] [facility] Future Scheduled [address] [facility] 00:00:00 [facility] colon (procedure) [code = 616554027] Future Scheduled [address] [facility] 00:00:00 [facility] colon (procedure) [code = 219873422] Future Scheduled 1956 [facility] Future Scheduled [address] [facility] 00:00:00 [facility] breast (procedure) [code = 316513909] Future Scheduled [address] [facility] 00:00:00 (combo) [code = CT Medical C enter Colonography (combo)] Future Scheduled [address] [facility] 00:00:00 [facility] colon (procedure) [code = 226527959] Future Scheduled [address] [facility] 00:00:00 [facility] colon (procedure) [code = 708146191] Future Scheduled 1956 DXA SCAN [code = DXA [facility] 00:00:00 SCAN] [facility] Future Scheduled [address] [facility] 00:00:00 [facility] colon (procedure) [code = 165174585] Future Scheduled [address] [facility] 00:00:00 [facility] colon (procedure) [code = 472786484] Future Scheduled 1956 [facility]uled [address] [facility] 00:00:00 [facility] breast (procedure) [code = 393017672] Future Scheduled [address] [facility] 00:00:00 (combo) [code = CT Medical C enter Colonography (combo)] Future Scheduled [address] [facility] 00:00:00 [facility] colon (procedure) [code = 466971507] Future Scheduled [address] [facility] 00:00:00 [facility] colon (procedure) [code = 729791545] Future Scheduled 1956 DXA SCAN [code = DXA [facility] 00:00:00 SCAN] [facility] Future Scheduled [address] [facility] 00:00:00 [facility] colon (procedure) [code = 187956174] Future Scheduled [address] [facility] 00:00:00 [facility] colon (procedure) [code = 146911853] Future Scheduled 1956 [facility] Future Scheduled [address] [facility] 00:00:00 [facility] breast (procedure) [code = 423219834] Future Scheduled [address] [facility] 00:00:00 [facility] breast (procedure) [code = 785224180] Future Scheduled [address] [facility] 00:00:00 (combo) [code = CT Medical C enter Colonography (combo)] Future Scheduled [address] [facility] 00:00:00 [facility] colon (procedure) [code = 461101345] Future Scheduled [address] [facility] 00:00:00 [facility] colon (procedure) [code = 480449400] Future Scheduled 1956 DXA SCAN [code = DXA [facility] 00:00:00 SCAN] [facility] Future Scheduled [address] [facility] 00:00:00 [facility] colon (procedure) [code = 284338470] Future Scheduled [address] [facility] 00:00:00 [facility] colon (procedure) [code = 830683898] Future Scheduled 1956 [facility] Future Scheduled [address] [facility] 00:00:00 (combo) [code = CT Medical C enter Colonography (combo)] Future Scheduled [address] [facility] 00:00:00 [facility] breast (procedure) [code = 370266329] Future Scheduled [address] [facility] 00[facility]00:00 (combo) [code = CT Medical C enter Colonography (combo)] Future Scheduled [address] [facility] 00:00:00 [facility] colon (procedure) [code = 029767002] Future Scheduled [address] [facility] 00:00:00 [facility] colon (procedure) [code = 827452492] Future Scheduled [address] [facility] 00:00:00 [facility] colon (procedure) [code = 606809354] Future Scheduled 1956 DXA SCAN [code = DXA [facility] 00:00:00 SCAN] [facility] Future Scheduled [address] [facility] 00:00:00 [facility] colon (procedure) [code = 144554738] Future Scheduled [address] [facility] 00:00:00 [facility] colon (procedure) [code = 227622917] Future Scheduled 1956 [facility] Future Scheduled [address] [facility] 00:00:00 [facility] colon (procedure) [code = 856643782] Future Scheduled [address] [facility] 00:00:00 [facility] breast (procedure) [code = 438420672] Future Scheduled [address] [facility] 00:00:00 (combo) [code = CT Medical C enter Colonography (combo)] Future Scheduled [address] [facility] 00:00:00 [facility] colon (procedure) [code = 117708609] Future Scheduled [address] [facility] 00:00:00 [facility] colon (procedure) [code = 754004811] Future Scheduled 1956 DXA SCAN [code = DXA [facility] 00:00:00 SCAN] [facility] Future Scheduled 1956 DXA SCAN [code = DXA [facility] 00:00:00 SCAN] [facility] Future Scheduled [address] [facility] 00:00:00 [facility] colon (procedure) [code = 431530030] Future Scheduled [address] [facility] 00:00:00 [facility] colon (procedure) [code = 314015159] Future Scheduled 1956 [facility] Future Scheduled [address] [facility] 00:00:00 [facility] colon (procedure) [code = 656204854] Future Scheduled [address] [facility] 00:00:00 [facility] breast (procedure) [code = 479312501] Future Scheduled [address] [facility] 00:00:00 (combo) [code = CT Medical C enter Colonography (combo)] Future Scheduled [address] [facility] 00:00:00 [facility] colon (procedure) [code = 715044090] Future Scheduled [address] [facility] 00:00:00 [facility] colon (procedure) [code = 200654295] Future Scheduled 1956 DXA SCAN [code = [facility] 00:00:00 SCAN] [facility] Future Scheduled [address] [facility] 00:00:00 [facility] colon (procedure) [code = 385824864] Encounters Start End Encounter Admission Attending Care Care Encounter Source Date/Time Date/Time Type Type Clinicians Facility Department ID 2023-05-08 Outpatient Hernandez, STLMLC [facility] [id number] Common 15:35:00 [facility]ly [facility], [facility] [address] [facility] 2023-04-16 Outpatient Hernandez, STLMLC [facility] [id number] Common 14:04:01 [facility] [address] [facility] 2023-04-04 Inpatient ER DEARY, [facility] [id number] [facility] 03:07:10 USELYN 2023-04-03 Inpatient ER DEARY, [facility] [id number] SLE 02:32:56 USELYN 2023-04-02 Inpatient ER DEARY, [facility] [id number] [facility] 02:37:04 USELYN 2023-04-01 Inpatient ER DEARY, [facility] [id number] [facility] 02:38:03 USELYN 2023-03-31 Inpatient ER DEARY, [facility] [id number] SLEH 02:13:34 USELYN 2023-03-30 Inpatient ER DEARY, [facility] [id number] SLEH 00:01:49 USELYN 2023-03-29 Inpatient ER DEARY, [facility] [id number] SLEH 00:00:59 USELYN 2023-03-28 Inpatient ER JEFRY, SLEH SLE[facility] [id number] SLEH 16:24:16 DRISS 2023-03-28 Inpatient ER YSABEL, SLEH SLEH [id number] SLEH 16:05:38 [facility] 2023-03-28 Inpatient ER ANGY, SLEH SLEH [id number] SLEH 00:01:01 USELYN 2023-03-27 Inpatient ER DEATOOTIE, [facility]H [facility] [id number] SLEH 00:59:45 USELYN 2023-03-27 Inpatient ER JOY, SLEH [facility] [id number] SLEH 00:00:00 IVORY 2023-03-26 Inpatient ER DEATOOTIE, SLEH SLEH [id number] SLEH 00:34:57 USELYN 2023-03-25 Inpatient ER JEFRY, SLEH SLEH [id number] SLEH 20:31:25 DRISS 2023-03-25 Inpatient ER DEATOOTIE, SLEH SLEH [id number] SLEH 00:26:45 USELYN 2023-03-25 Inpatient ER SLEH SLEH [id number] SLEH 00:00:00 2023-03-24 Inpatient ER SLEH SLEH [id number] SLEH 14:47:44 2023-03-24 Inpatient ER DEATOOTIE, SLEH SLE[facility] [id number] SLEH 00:08:53 USELYN 2023-03-23 Inpatient ER GRANT, SLEH SLEH [id number] SLEH 14:53:33 THUSHARA 2023-03-23 Inpatient ER GRANT, SLEH [facility] [id number] [facility] 12:07:46 [facility] ER DEARY, SLEH SLE[facility] [id number] SLEH 02:45:23 USELYN 2023-03-23 Inpatient ER DEARY, SLEH SLEH [id number] SLEH 00:00:00 USELYN 2023-03-22 Inpatient ER DEARY, SLEH SLEH [id number] SLEH 00:05:06 USELYN 2023-03-21 Inpatient ER DEATOOTIE, SLEH SLEH [id number] SLEH 00:10:50 USELYN 2023-03-20 Inpatient ER CEZAR, SLEH SLEH [id number] SLEH 07:12:06 SUBHASIS 2023-03-20 Inpatient ER ANGY SLEH SLEH [id number] SLEH 00:00:27 USELYN 2023-03-19 Inpatient ER ANGY, SLEH SLEH [id number] SLEH 01:16:24 USELYN 2023-03-18 Inpatient ER ANGY SLEH SLEH [id number] SLEH 00:03:21 USELYN 2023-03-17 Inpatient ER ANGY, SLEH SLEH [id number] SLEH 02:43:51 USELYN 2023-03-16 Inpatient ER JOY SLEH SLEH [id number] SLEH 14:52:49 IVORY 2023-03-16 Inpatient ER JOY, SLEH SLEH [id number] SLEH 09:06:23 IVORY 2023-03-15 Inpatient ER ANGY, SLEH SLEH [id number] SLEH 19:47:11 USELYN 2023-03-11 Inpatient ER CARTER SLEH SLEH [id number] SLEH 20:31:51 [place] 2023-03-11 Inpatient ER SLEH SLEH [id number] SLEH 09:59:31 2023-03-11 Inpatient ER SLEH SLEH [id number] SLEH 09:59:20 2023-03-11 Inpatient ER SLEH SLEH [id number] SLEH 09:57:20 2023-03-07 Inpatient ER ARIEL, SLEH SLEH [id number] SLEH 16:02:58 NAWAZISH 2023-03-07 Inpatient ER YANIRA, SLEH SLEH [id number] SLEH 05:10:52 YASHASH 2023-03-06 Inpatient ER YANIRA, SLEH SLEH [id number] SLEH 13:57:19 YASHASH 2023-03-06 Inpatient ER ATASSI, SLEH SLEH [id number] SLEH 08:25:19 CAM 2023-03-06 Inpatient ER ATASSI, SLEH SLEH [id number] SLEH 08:25:10 CAM 2023-03-06 Inpatient ER MERONWALMalena, SLEH SLEH [id number] SLEH 00:51:30 [facility] 2023-01-27 [facility] [id number] [address] [place] [facility] 00:00:00 [facility] 2022-11-13 Outpatient 3 [id number] ENCPL CRD [id number] [facility] 15:05:25 [facility] 2022-11-08 Outpatient 3 [id number] ENCPL CRD [id number] [facility] 09:30:23 [facility] [place] [facility] 2022-11-07 Outpatient 3 [id number] ENCPL REF [id number] [facility] 21:38:12 0[facility] [place] [facility] 2022-08-14 Outpatient Hernandez, [facility] [id number] Common 07:43:01 [facility] [address] [facility] 2022-08-04 [facility] [id number] Common 13:26:01 [facility] [address] [facility] 2022-08-03 Out[facility], [facility] [id number] Common 14:53:01 [facility] [address] [facility] 2022-07-25 Out[facility] [id number] Common 15:59:02 Dann [address] [facility] 2022-07-24 Outpatient Hernandez, [facility] [id number] Common 07:39:00 Dann [address] [facility] 2022-07-19 Out[facility] [id number] Common 08:46:01 [facility] [address] [facility] 2022-07-15 Inpatient JUSTINE [place] ADMI [id number] [facility] 11:05:00 [place] [facility] 2022-06-20 [facility] [id number] [facility] [place] [facility] 00:00:00 [facility] 2022-06-15 Outpatient Hernandez, STLMLC STL[facility]C [id number] Common 08:26:02 [facility] [address] [facility] 2022-05-25 Outpatient Hernandez, STLMLC ST[facility] [id number] Common 11:25:01 [facility] 6[address] [facility] 2022-02-27 Outpatient Hernandez, STLMLC ST[facility] [id number] Common 10:42:02 [facility] 2022-02-03 Outpatient Rubio, STLMLC ST[facility]C [id number] Common 12:12:00 Avnee [facility] 2022-01-31 Outpatient Rubio, STLMLC STL[facility]C [id number] Common 12:38:00 Avnee [facility] 2021-12-02 Outpatient Rubio, STLMLC ST[facility]C [id number] Common 15:52:01 Avnee [facility] 2021-12-01 Outpatient Rubio, STLMLC ST[facility] [id number] Common 10:24:03 Avnee [facility] 2021-11-21 Outpatient Rubio, STLMLC ST[facility]C [id number] Common 10:05:12 Avnee [facility] 2021-11-08 Outpatient Rubio, STLMLC ST[facility]C [id number] Common 08:37:01 Avnee [facility] 2021-11-04 Outpatient Rubio, STLMLC STL[facility]C [id number] Common 14:15:04 Avnee [facility] 2021-10-31 Outpatient Arrieta, Na STLMLC STLMLC [id number] Common 09:40:02 [facility] 2021-08-04 Outpatient 3 [id number] ENCPL REF [id number] [facility] 13:44:15 [facility] [place] [facility] 2021-08-04 Outpatient 3 [id number] ENCPL REF [id number] [facility] 13:21:20 1122 [facility] [place] 2021-05-08 Outpatient Estevan MORAES [facility] OPH [id number] Univers 08:53:46 [facility] 2021-05-06 Outpatient Estevan MORAES [facility] ECTOR [id number] Univers 18:47:42 [facility] 2023-05-07 2023-05-07 Outpatient GC_GCBZW_Ka PRIV PRIV [id number] [facility] 00:00:00 00:00:00 diyala_S [id number] Medic al 2023-05-06 2023-05-06 Outpatient GC_GCBZW_Ka PRIV PRIV [id number] [facility] 00:00:00 00:00:00 diyala_S [id number] Medic al 2023-04-24 2023-04-24 [id number] [facility] 00:00:00 00:00:00 ELÍAS 2023-03-05 2023-04-09 Inpatient ER MING, [facility] Surgery [id number] SLEH 21:46:00 18:51:00 THOR 2023-04-09 2023-04-[address] [facility] [id number] SLEH 02:25:36 02:25:36 DANIEL 2023-04-08 2023-04-[address] [facility] [id number] SLE 02:51:49 02:51:49 USELYN 2023-04-07 2023-04-07 [facility] [id number] [facility] 02:09:36 02:09:36 USELYN 2023-04-06 2023-04-06 [facility] [id number] [facility] 02:53:56 02:53:56 USELYN 2023-04-05 2023-04-05 [facility] [id number] SLEH 02:55:25 02:55:25 USELYN 2023-03-11 2023-03-11 Inpatient ER SLEH SLE [id number] SLEH 07:34:20 23:59:00 2023-03-06 2023-03-06 Outpatient YANIRA, SLEH SLEH [id number] SLEH 00:00:00 00:00:00 SEUN 2022-12-26 2022-12-26 Transition JENNY Yang 1.2.840.114 [id number] Univers 00:00:00 00:00:00 of Care Ivan Malena CHASE 350.1.13.10 [place] [id number] [facility] [address] 2022-12-25 2022-12-25 Patient Doctor ROSELIA 1.2.840.114 [id number] Univers 00:00:00 00:00:00 Secure Msg Unassigned, CINDY 350.1.13.10 ity of [place] [facility] 4.2.7.2.686 [place] as [id number] [facility] [address] 2022-12-14 2022-12-22 [facility]patient [facility] [id number] Univers 17:38:00 17:36:00 [place] itagus [facility] 2022-12-14 2022-12-22 [facility] Sarahy Durán [facility] 1.2.8 40.114 [id number] Univers 17:38:00 17:36:00 Encounter Tavo Nickerson 350.1.13.10 ity of [facility] 4.2.7.2.686 [facility] [id number] Medical [address] 2022-12-21 2022-12-21 [facility] 1.2.840.114 [id number] Univers 14:20:00 15:56:00 Leyla RIOS 350.1.13.10 [place] [facility] [id number] [facility] [address] 2022-11-08 2022-11-08 Transition JENNY Ruiz 1.2.840.114 [id number] Univers 00:00:00 00:00:00 of [place] CHASE 350.1.13.10 it y of [place] 4.2.7.2.686 [facility] [id number] [facility] [address] 2022-11-04 2022-11-07 Outpatient X RAJNI [facility] [id number] Univers 13:24:00 17:38:00 [place] adam [facility] 2022-11-04 2022-11-07 Emergency Katherin Persaud [facility] 1.2.840 .114 [id number] Univers 13:24:00 17:38:00 [place] GREG 350.1.13.10 ity of CHRISTIE 4.2.7.2.686 [facility] [phone] [facility] [address] 2022-08-15 2022-08-15 OFFICE STLMLC STLMLC [id number] Co mmon 00:00:00 00:00:00 VISIT Spirit ESTAB PT - CHI LEVEL 4 [facility] 2022-07-26 2022-07-26 (TEL) STLMLC STLMLC [id number] Co mmon 00:00:00 00:00:00 [facility] 2022-07-26 2022-07-26 OFFICE STLMLC STLMLC [id number] Co mmon 00:00:00 00:00:00 VISIT Spirit ESTAB PT - CHI LEVEL 4 [facility] 2022-07-13 2022-07-13 (TEL) STLMLC STLMLC [id number] Co mmon 00:00:00 00:00:00 [facility] 2022-06-22 2022-07-07 Inpatient UR Lucila Adonis [facility].01 G001 [id number] [facility] 09:01:00 17:11:00 00 [facility] 2022-06-08 2022-06-08 (TEL) STLMLC STLMLC [id number] Co mmon 00:00:00 00:00:00 [facility] 2022-05-31 2022-05-31 (TEL) STLMLC STLMLC [id number] Co mmon 00:00:00 00:00:00 [facility] 2022-04-26 2022-04-26 Hospital [facility], 1.2.840.1 [id number] 21 [id number] Methodi 06:55:00 12:55:00 Encounter Jose Keller 48009.1.[address] 3.430.2.7 Hospit a .3.975417 l .8 2022-04-26 2022-04-26 Anesthesia Reji Waldrop 1.2.840.1 1 [id number] Methodi 09:56:00 11:03:00 Event Ce Knutson 38634.1.[address] 3.430.2.7 Hospit a .3.184493 l .8 2022-04-26 2022-04-26 Surgery [facility], 1.2.840.1 [id number] 442 [id number] Methodi 09:15:00 10:45:00 Jose Keller 31739.1.1 677 s t 3.430.2.7 Hospit a .3.040021 l .8 2022-04-26 2022-04-26 Travel 1.2.840.1 1.2.331.598 4387 347812 Methodi 00:00:00 00:00:[address] 3.430.2.7 0.2.7.3.698 Ho spita .3.519392 084.8 l .8 2022-04-24 2022-04-24 Travel 1.2.840.1 1.2.801.607 3949 263120 Methodi 00:00:00 00:00:[address] 3.430.2.7 0.2.7.3.698 Ho spita .3.458665 084.8 l .8 2022-04-21 2022-04-21 Prep for [facility], 1.2.840.1 [id number] 21 [id number] Methodi 00:00:00 00:00:00 Surgery Jose Keller 02191.1.1 940 s t 3.430.2.7 Hospit a .3.557049 l .8 2022-04-21 2022-04-21 [facility] 1.2.840.1 [id number] 600 [id number] Methodi 00:00:00 00:00:00 Only Jose Keller 36201.1.1 613 s t 3.430.2.7 Hospit a .3.846819 l .8 2022-04-05 2022-04-05 Outpatient R [facility] [id number] Univers 15:00:00 15:00:00 [facility] 2022-03-21 2022-03-21 Office [facility], 1.2.840.1 [id number] 789 [id number] Methodi 11:30:00 12:00:24 Visit Jose Keller 95731.1.1 407 s t 3.430.2.7 Hospit a .3.027080 l .8 2022-03-21 2022-03-21 Travel 1.2.840.1 1.2.436.202 8036 739513 Methodi 00:00:00 00:00:[address] 3.430.2.7 0.2.7.3.698 spita .3.182390 084.8 l .8 2022-03-15 2022-03-15 Outpatient R [facility] [id number] Univers 10:00:00 10:00:00 [facility] 2022-03-14 2022-03-14 (TEL) STLMLC STLC [id number] Co mmon 00:00:00 00:00:00 [facility] 2022-03-06 2022-03-06 Hospital [facility], 1.2.840.1 [id number] 21 [id number] Methodi 05:46:00 12:05:00 Encounter Jose Keller 03890.1.[address] 3.430.2.7 Hospit a .3.300014 l .8 2022-03-06 2022-03-06 Anesthesia Jory Santoroon 1.2.840. 1 [id number] Methodi 07:44:00 09:46:00 Event Corrina Cavanaugh 48485.1.[address] 3.430.2.7 Hospit a .3.315984 l .8 2022-03-06 2022-03-06 [facility], 1.2.840.1 [id number] 711 [id number] Methodi 07:45:00 09:05:00 Jose Keller 67586.1.1 269 s t 3.430.2.7 Hospit a .3.192361 l .8 2022-03-01 2022-03-01 [facility], 1.2.840.1 [id number] Methodi 13:00:00 14:00:00 ion Jose Keller 88969.1.1 998 s t Testing 3.430.2.7 Hospit a .3.699216 l .8 2022-03-01 2022-03-01 Travel 1.2.840.1 1.2.803.357 4891 524504 Methodi 00:00:00 00:00:[address] 3.430.2.7 0.2.7.3.698 Ho spita .3.301962 084.8 l .8 2022-02-27 2022-02-27 SUB ANNUAL [facility] [id number] Common 00:00:00 00:00:00 MCR Spirit WELLNESS - CHI VISIT [facility] 2022-02-27 2022-02-27 OFFICE [facility] [id number] Co mmon 00:00:00 00:00:00 VISIT Spirit ESTAB PT - CHI LEVEL 4 [facility] 2022-02-27 2022-02-27 (TEL) [facility] [id number] Co mmon 00:00:00 00:00:00 Spirit - CHI [facility] 2022-02-07 2022-02-07 Orders Doctor ROSELIA 1.2.840.114 [id number] Univers 00:00:00 00:00:00 Only Unassigned, CINDY 350.1.13.10 ity [place] [facility] 4.2.7.2.686 [place] as [id number] [place] [address] [address] 2022-02-02 2022-02-02 (TEL) STLMLC STLMLC [id number] Co mmon 00:00:00 00:00:00 [facility] 2022-01-31 2022-01-31 Travel 1.2.840.1 1.2.426.542 9150 [id number] Methodi 00:00:00 00:00:[address] 3.430.2.7 0.2.7.3.698 Ho spita .3.201348 084.8 l .8 2022-01-27 2022-01-27 (TEL) STLMLC STLMLC [id number] Co mmon 00:00:00 00:00:00 [facility] 2021-12-30 2021-12-30 (TEL) STLMLC STLMLC [id number] Co mmon 00:00:00 00:00:00 [facility] 2021-12-29 2021-12-29 (TEL) STLMLC STLMLC [id number] Co mmon 00:00:00 00:00:00 [facility] 2021-12-19 2021-12-19 (TEL) STLMLC STLMLC [id number] Co mmon 00:00:00 00:00:00 [facility] 2021-12-13 2021-12-13 (TEL) STLMLC STLMLC [id number] Co mmon 00:00:00 00:00:00 [facility] 2021-12-12 2021-12-12 Pre-Admiss Eugenio, 1.2.840.1 [id number] Methodi 15:00:00 16:00:00 ion Jose Keller 57143.1.1 317 s t Testing 3.430.2.7 Hospit a .3.285750 l .8 2021-12-12 2021-12-12 Travel 1.2.840.1 1.2.139.718 7081 869255 Methodi 00:00:00 00:00:[address] 3.430.2.7 0.2.7.3.698 Ho spita .3.610564 084.8 l .8 2021-12-08 2021-12-08 (TEL) STLMLC STLMLC [id number] Co mmon 00:00:00 00:00:00 [facility] 2021-12-01 2021-12-01 (TEL) STLMLC STLMLC [id number] Co mmon 00:00:00 00:00:00 [facility] 2021-11-30 2021-11-30 (TEL) STLMLC STLMLC [id number] Co mmon 00:00:00 00:00:00 [facility] 2021-11-25 2021-11-25 (TEL) STLMLC STLMLC [id number] Co mmon 00:00:00 00:00:00 [facility] 2021-11-21 2021-11-21 (TEL) STLMLC STLMLC [id number] Co mmon 00:00:00 00:00:00 [facility] 2021-11-18 2021-11-18 (TEL) STLMLC STLMLC [id number] Co mmon 00:00:00 00:00:00 [facility] 2021-11-15 2021-11-15 Office Eugenio, 1.2.840.1 [id number] Methodi 13:00:00 14:01:57 Visit Jose Keller 22827.1.1 465 s t 3.430.2.7 Hospit a .3.389689 l .8 2021-11-15 2021-11-15 (TEL) STLMLC STLMLC [id number] Co mmon 00:00:00 00:00:00 [facility] 2021-11-15 2021-11-15 Prep for Tiffany, 1.2.840.1 [id number] 63602 97284 Methodi 00:00:00 00:00:00 Surgery Funmi P 25467.1.[address] 3.430.2.7 Hospit a .3.013073 l .8 2021-11-15 2021-11-15 Travel 1.2.840.1 1.2.918.243 1128 797209 Methodi 00:00:00 00:00:[address] 3.430.2.7 0.2.7.3.698 Ho spita .3.493098 084.8 l .8 2021-11-14 2021-11-14 (TEL) STLMLC STLMLC [id number] Co mmon 00:00:00 00:00:00 [facility] 2021-11-04 2021-11-04 (TEL) STLMLC STLMLC [id number] Co mmon 00:00:00 00:00:00 [facility] 2021-10-31 2021-10-31 (TEL) STLMLC STLMLC [id number] Co mmon 00:00:00 00:00:00 [facility] 2021-10-20 2021-10-20 Telephone Stephane, 1.2.840.1 [id number] 2099 [id number] Methodi 00:00:00 00:00:[address] 3.430.2.7 Hospit a .3.373025 l .8 2021-10-05 2021-10-05 Documentat Chace, 1.2.840.1 [id number] 21 [id number] Methodi 00:00:00 00:00:[address]iz [address]991.1.[address] 3.430.2.7 Hospit a .3.578113 l .8 2021-09-22 2021-09-22 Travel 1.2.840.1 1.2.185.190 4911 041901 Methodi 00:00:00 00:00:[address] 3.430.2.7 0.2.7.3.698 Ho spita .3.868439 084.8 l .8 2021-08-23 2021-08-23 Ambulatory nullFlavo MNA 67895 75682 Memoria 14:15:00 14:15:00 Pre-Reg r Neurology 06 l Estelle Saucedo 2021-08-23 2021-08-23 Ambulatory nullFlavo MNA 81003 82609 Memoria 14:15:00 14:15:00 Pre-Reg r Neurology 06 l Estelle Saucedo 2021-08-23 2021-08-23 Outpatient IE ELIANA [id number] Memoria 08:15:00 08:15:00 06 josy Saucedo 2021-08-23 2021-08-23 [facility] [id number] 08:15:00 08:15:00 Farhan Herminia Don 2021-07-12 2021-07-12 Ambulatory nullFlavo MNA [id number] 67839 Memoria 14:15:00 14:15:00 Pre-Reg r Neurology 05 josy Kleinann 2021-07-12 2021-07-12 Ambulatory nullFlavo MNA 39557 75125 Memoria 14:15:00 14:15:00 Pre-Reg r Neurology 05 l Estelle Saucedo 2021-07-12 2021-07-12 [facility] [id number] 08:15:00 08:15:00 Farhan Mela Don 2021-06-14 2021-06-14 Telephone Courtney 1.2.840.1 [id number] Methodi 00:00:00 00:00:[address] 3.430.2.7 Hospit a .3.579528 l .8 2021-06-01 2021-06-01 Outpatient IE ELIANA [id number] Memoria 09:00:00 09:00:00 05 josy Saucedo 2021-05-19 2021-05-19 Ambulatory nullFlavo MNA 89795 64936 Memoria 14:15:00 14:15:00 Pre-Reg r Neurology 04 josy lKeinann 2021-05-19 2021-05-19 Ambulatory nullFlavo MNA 53788 08451 Memoria 14:15:00 14:15:00 Pre-Reg r Neurology 04 l Estelle Saucedo 2021-05-19 2021-05-19 Outpatient [id number] 08:15:00 08:15:00 Farhan 04 Arian 2021-05-10 2021-05-10 Outpatient MHIE MHIE [id number] Memoria 15:45:00 15:45:00 04 josy Saucedo 2021-03-31 2021-03-31 Ambulatory nullFlavo MNA [id number] 85232 Memoria 13:15:00 13:15:00 Pre-Reg r Neurology 03 l Estelle Saucedo 2021-03-31 2021-03-31 Ambulatory nullFlavo MNA 97039 81512 Memoria 13:15:00 13:15:00 Pre-Reg r Neurology 03 l Estelle Saucedo 2021-03-31 2021-03-31 Outpatient MHIE MHIE [id number] Memoria 08:15:00 08:15:00 03 josy Saucedo 2021-03-31 2021-03-31 Outpatient CORWIN [facility] 790 [id number] 08:15:00 08:15:00 Farhan 03 Arian 2021-02-23 2021-02-24 Outpatient nullFlavo MNA [id number] Memoria 20:00:00 04:59:59 r Neurology 02 josy Saucedo 2021-02-23 2021-02-24 Outpatient nullFlavo MNA 60311 49422 Memoria 20:00:00 04:59:59 r Neurology 02 josy Saucedo 2021-02-23 2021-02-23 Outpatient CORWIN [facility] 048 [id number] 15:00:00 23:59:59 Farhan Laurie Don 2021-02-23 2021-02-23 Outpatient MHIE MHIE [id number] Memoria 15:00:00 15:00:00 02 josy Saucedo 2020-10-14 2020-10-14 Surgery [facility] 1.2.840.114 [id number] 08:34:00 09:10:00 [place] 350.1.13.10 [place] 4.2.7.2.686 Surgical [id number] [place] [address] 2020-10-14 2020-10-14 Surgery Aleisha [facility] 1.2.840.114 [id number] [facility] 08:34:00 09:10:00 Fausto Rios 350.1.13.10 i [place] [id number] [facility] [address] 2020-10-12 2020-10-12 Split [place]ather Department Supervisor Jyoti, [facility] 1.2.840.114 [id number] 11:40:06 11:55:06 Visit Lab Main [place] 350.1.13.10 [place] 4.2.7.2.686 Professio [id number] [address] 2020-10-12 2020-10-12 Split [place]ather Department Supervisor Jyoti, [facility] Lab Main [facility] 1.2.8 40.114 [id number] [facility] 11:40:06 11:55:06 Visit Fausto Moraes 350.1.1 3.10 [place] Profess[place] [id number] [place] dical [address] 2020-10-12 2020-10-12 Laboratory Only, [facility] 1.2.840.114 8 [id number] 11:34:36 11:49:36 Only Test Greg 350.1.13.10 [place] 4.2.7.2.686 [place] [id number] [facility] 2020-10-12 2020-10-12 Laboratory Only, [facility] Test [facility] 1.2.840. 114 [id number] [facility] 11:34:36 11:49:36 Only Fausto Moraes 350.1.1 3.10 [place] [id number] [address] 2020-10-12 2020-10-12 Outpatient R ALEISHA [facility] [id number] [facility] 10:45:00 10:45:00 FAUSTO adam of [facility] 2020-10-12 2020-10-12 Orders Doctor VELOZ 1.2.840.114 [id number] 00:00:00 00:00:00 Only UnassignedCINDY 350.1.13.10 [place] [facility] 4.2.7.2.686 [id number] 009 2020-10-12 2020-10-12 Orders Doctor ROSELIA 1.2.840.114 [id number] 00:00:00 00:00:00 Only Unassigned, CINDY 350.1.13.10 ity [place] [facility] 4.2.7.2.686 [place] as [id number] [facility] 00[address] [place] 2020-05-13 2020-05-14 Outpatient SUSAN [facility] 021 [id number] [place] 00:00:00 00:00:00 361 Method i 2020-05-11 2020-05-11 Outpatient AMY [facility] [id number] [place] 00:00:00 00:00:00 IMRAN 611 Method i 2020-04-01 2020-04-01 [facility] 1.2.840.114 [id number] 06:36:00 10:10:00 Encounter Fausto Rios 350.1.13.10 [place] 4.2.7.2.686 Surgical [id number] [place] [address] 2020-04-01 2020-04-01 [facility] 1.2.840.114 [id number] [facility] 06:36:00 10:10:00 Encounter Fausto Rios 350.1.13.10 [place] [id number] [facility] 071 [place] 2020-04-01 2020-04-01 Anesthesia Ralph Christensen [facility] 1.2.840.11 4 [id number] [facility] 08:01:00 08:33:00 [facility] 350.1.13.10 [place]y [place] [id number] [facility] 020 [place] 2020-04-01 2020-04-01 Anesthesia Ralph Christensen [facility] 1.2.840.11 4 [id number] 08:01:00 08:33:00 [facility] 350.1.13.10 [place] 4.2.7.2.686 Surgical [id number] [place] [address] 2020-03-31 2020-03-31 [facility] [id number] Univers 09:30:00 09:30:00 FAUSTO itagus [facility] 2020-03-30 2020-03-30 Outpatient R [facility] [id number] Univers 12:45:00 12:45:00 ity [facility] 2020-03-30 2020-03-30 Laboratory Only, Adc Test [facility] 1.2.840. 114 [id number] Univers 11:17:56 11:32:56 Only Fausto Moraes Greg 350.1.1 3.10 ity of [place] 4[place].2.686 [place] [id number] [address] 2020-03-30 2020-03-30 Orders Doctor ROSELIA 1.2.840.114 [id number] Univers 00:00:00 00:00:00 Only Unassigned, CINDY 350.1.13.10 [facility] 4.2.7.2.686 [place] as [id number] [address] 2020-03-25 2020-03-25 Outpatient AMY [facility] 021 [id number] [place] 00:00:00 00:00:00 IMRAN 879 Method i 2020-03-23 2020-03-23 Split [place]ather Department Supervisor Jyoti, Juanpablo Lab Main [facility] 1.2.8 40.114 [id number] Univers 15:51:10 16:06:10 Visit Fausto Moraes [place] 350.1.1 3.10 ity [place].2.686 [place] [facility] [id number] [place] dic[address] 2020-03-23 2020-03-23 Outpatient R ALEISHA, [facility] [id number] Univers 16:00:00 16:00:00 FAUSTO adam [facility] 2020-03-23 2020-03-23 Outpatient AMY [facility] [id number] [place] 00:00:00 00:00:00 IMRAN [address] 2020-03-23 2020-03-23 Outpatient WOHUSSAIN [facility] [id number] [place] 00:00:00 00:00:00 KI, [address] Results Test Description Test Time Test Comments Results Result Sour e Comments IR TUNNELED 2023-04-09 CATHETER 4 INSERTION 09:25:24 [facility] 1955 Sex: F Tunneled dialysis catheter insertion, . History: Renal failure. Modality: Sonography and fluoroscopy. Sedation: Not administered.Dispute Coordinator: Ricky Hernandez M.D.[employer] Outreach Specialist: Dr. Tomlinson. Approach: Right internal jugular vein Estimated blood loss: < 5 cc.Specimen: None. Technique: Informed written consent was obtained. Discussion of risks,benefits, and alternatives were made with the patient. The patientexpressed understanding and agreed to proceed. All elements maximalsterile barrier technique was utilized for this procedure, includingutilization of sterile scrub solution for skin prep, a large sterilesheet to cover the areas of the patient that were not prepped, and handhygiene, mask, head covering, and sterile gown for performingradiologist and scrub technologist. The skin was anesthetized with 2% lidocaine.Ultrasound evaluation showeda patent and compressible right internal jugular vein, which waspunctured under direct real-time ultrasound guidance with amicropuncture needle. An ultrasound image was saved to PACS. A 0.018 inch wire was placed through the needle into the right atrium. A4 Irish micropuncture sheath was placed and a 0.035 wire was advancedinto the IVC. A subcutaneous tunnel was created in the right anteriorchest wall by blunt dissection. A 19 cm tip to cuff 15.5 FrenchDuraflow 2 catheter was brought through the tunnel. The vessel tract wasserially dilated. A peel-away sheath was placed in the right IJ vein andthe catheter was advanced through the sheath, with its distal tipterminating in the superior right atrium. The peel-away sheath wasremoved. The ports were flushed and aspirated easily followingplacement. The catheter was sutured to the skin to secure itsplacement. The small jugular incision site was closed using Dermabond.Vital signs were monitored throughout the procedure by a nurse, hafsa daugherty. The patient tolerated the procedure well and left thedepartment in the same condition. Results: Spot radiograph of the chest demonstrates the new dialysiscatheter to lie in the expected position with its tip overlying thesuperior right atrium. IMPRESSION:Impression: Successful, uncomplicated placement of a right internal jugular tunneleddialysis catheter using sonographic and fluoroscopic guidance. Electronically Signed By: Ricky Hernandez05/01/2023 09:27 CDTWorkstation Name: [id number] POCT-GLUCOSE METER 2023-04-09 18:36:17 Test Item Value Reference Range Interpretation Comme nts POC-GLUCOSE METER ([employer]) 77 mg/dL 70-110 : TESTED AT [place] [id number] [facility] (test code = 1538) [facility], [address]: Lactation Specialist/Techni patricia ID = [id number] for [place] POCT-GLUCOSE [id number] 14:12:17 Test Item Value Reference Range Interpretation Comments POC-GLUCOSE METER 113 mg/dL 70-110 H : TESTED A T [facility] 6720 ([employer]) (test code = SARMAD Barreto [facility], 1538) [address]: Lactation Specialist/Techni patricia ID = [id number] for JORDAN DE LA GARZA XR CHEST 1 VIEW PORTABLE / [id number] 09:31:38 [facility] : 1955 Sex: FXR CHEST 1 VIEW PORTABLE / BEDSIDEINDICATION: s/p ACB surgeryCOMPARISON: Prior day's examFINDINGS: Portable frontal view of the chest. IMPRESSION:Support Lines: No significant change. Lungs and pleura: Unchanged airspace and pleural opacities. Nopneumothorax.Heart and mediastinum: Stable contours. Additional findings: None.Electronically Signed By: Keyon Ortega04/09/2023 09:33 CDTWorkstation Name: [id number] METABOLIC [id number] 05:44:14 Test Item Value Reference Range Interpretation [...] not appl icable for dialysis patien ts Lactation Specialist ID - JAKE [id number] 05:29:51 Test Item Value Reference Range Interpretation Comments PHOSPHORUS (BEAKER) (test code = 4.4 mg/dL 2.3-4.7 604) Lactation Specialist ID - JAKE [id number] 05:29:50 Test Item Value Reference Range Interpretation Comments MAGNESIUM (BEAKER) (test code = 1.6 mg/dL 1.6-2.6 627) Lactation Specialist ID - JAKE CRESPO SATURATION, [id number] 04:46:14 Test Item Value Reference Range Interpretation Comments O2 SATURATION (MEASURED) (BEAKER) 96.4 % (test code = 1455) [id number] 04:38:50 Test Item Value Reference Range Interpretation [...] mechanical heart valves.CBC W/PLT COUNT & AUTO [id number] 04:34:56 Test Item Value Reference Range Interpretation [...] PERCENT (BEAKER) (test code = 2801) POCT-GLUCOSE [id number] 21:32:39 Test Item Value Reference Range Interpretation Comments POC-GLUCOSE METER 70 mg/dL 70-110 : TESTED A T [facility] 6720 (BEAKER) (test code [facility], = 1538) 58[address]: Lactation Specialist/Techni patricia ID = [id number] for Ezeh , Natalia POCT-GLUCOSE [id number] 17:21:56 Test Item Value Reference Range Interpretation Comments POC-GLUCOSE METER 203 mg/dL 70-110 H : TESTED A T [facility] 6720 (BEAKER) (test code = [facility] Estevan [facility], 1538) [address]: Lactation Specialist/Techni patricia ID = [id number] for OR ALESSIO AGUILAR POCT-GLUCOSE [id number] 11:59:04 Test Item Value Reference Range Interpretation Comments POC-GLUCOSE METER 274 mg/dL 70-110 H : TESTED A T [facility] 6720 (BEAKER) (test code = [place], 1538) [address]: Lactation Specialist/Techni patricia ID = [id number] for OR PHEY, ALESSIO POCT-GLUCOSE [id number] 07:55:45 Test Item Value Reference Range Interpretation Comments POC-GLUCOSE METER 147 mg/dL 70-110 H : TESTED A T [facility] 6720 (BEAKER) (test code = SARMAD Barreto [place], 1538) [address]: Lactation Specialist/Techni patricia ID = [id number] for OR PHEY, ALESSIO XR CHEST 1 VIEW PORTABLE / [id number] 06:48:27 [facility] VANDANA : 1955 Sex: FCLINICAL INDICATION: s/p ACB surgeryComparison: 04/07/2023The cardiomediastinal contours are stable.Centralpulmonary vascular congestion and bilateral parenchymalopacities are similar to previous.There is nopneumothorax.A tunneled right IJ dialysis catheter remains in place.Electronically Signed By: Cristi carpenter 06:50 CDTWorkstation Name: [id number] SATURATION, MEASURED 2023-04-08 05:45:30 Test Item Value Reference Range Interpretation Comments O2 SATURATION (MEASURED) (BEAKER) 97.7 % (test code = 1455) BASIC METABOLIC [id number] 05:19:11 Test Item Value Reference Range Interpretation [...] not appl icable for dialysis patien ts Lactation Specialist ID - [id number] 05:16:31 Test Item Value Reference Range Interpretation Comments MAGNESIUM (BEAKER) (test code = 1.6 mg/dL 1.6-2.6 627) Lactation Specialist ID - [id number] 05:16:31 Test Item Value Reference Range Interpretation Comments PHOSPHORUS (BEAKER) (test code = 4.3 mg/dL 2.3-4.7 604) Lactation Specialist ID - ADMINPT/[id number] 04:59:38 Test Item Value Reference Range Interpretation [...] mechanical heart valves.CBC W/PLT COUNT & AUTO [id number] 04:58:03 Test Item Value Reference Range Interpretation [...] PERCENT (BEAKER) (test code = 2801) POCT-GLUCOSE [id number] 18:00:35 Test Item Value Reference Range Interpretation Comments POC-GLUCOSE METER 216 mg/dL 70-110 H : TESTED A T [facility] 6720 (BEAKER) (test code = [facility], 1538) [id number]: Lactation Specialist/Techni patricia ID = [id number] for Fauzia Carter POCT-GLUCOSE [id number] 11:35:05 Test Item Value Reference Range Interpretation Comments POC-GLUCOSE METER 184 mg/dL 70-110 H : TESTED A T [facility] 6720 (BEAKER) (test code = [facility], 1538) [id number]: Lactation Specialist/Techni patricia ID = [id number] for Juan DYSON POCT-GLUCOSE [id number] 09:03:16 Test Item Value Reference Range Interpretation Comments POC-GLUCOSE METER 165 mg/dL 70-110 H : TESTED A T [facility] 6720 (BEAKER) (test code = [facility], 1538) [id number]: Lactation Specialist/Techni patricia ID = [id number] for KARIS, S HIKARA XR CHEST 1 VIEW PORTABLE / [id number] 08:20:21 [facility] : 1955 Sex: FXR CHEST 1 VIEW PORTABLE / BEDSIDEINDICATION: s/p ACB surgeryCOMPARISON: Prior day's examFINDINGS: Portable frontal view of the chest. IMPRESSION:Support Lines: Central catheter tip overlies the atriocaval junction. Lungs and pleura: Scattered bilateral interstitial thickening is grosslyunchanged suggestiveof minimal volume overload. No significantpneumothorax.Heart and mediastinum: Stable contours. Stable surgical changes.Additional findings: None.Electronically Signed By: Tayaaudra Phelps04/07/2023 08:22CDTWorkstation Name: [id number] METABOLIC [id number] 05:25:13 Test Item Value Reference Range Interpretation [...] not appl icable for dialysis patien ts Lactation Specialist ID - [id number] 05:23:31 Test Item Value Reference Range Interpretation Comments MAGNESIUM (BEAKER) (test code = 1.6 mg/dL 1.6-2.6 627) Lactation Specialist ID - [id number] 05:23:31 Test Item Value Reference Range Interpretation Comments PHOSPHORUS (BEAKER) (test code = 3.5 mg/dL 2.3-4.7 604) Lactation Specialist ID - ADMINPT/VDSC6003-47-31 04:57:54 Test Item Value Reference Range Interpretation [...] mechanical heart valves.CBC W/PLT COUNT & AUTO [id number] 04:48:30 Test Item Value Reference Range Interpretation [...] (BEAKER) (test code = 2801) OXYGEN SATURATION, [id number] 04:39:54 Test Item Value Reference Range Interpretation Comments O2 SATURATION (MEASURED) (BEAKER) 85.1 % (test code = 1455) POCT-GLUCOSE [id number] 22:16:54 Test Item Value Reference Range Interpretation Comments POC-GLUCOSE METER 90 mg/dL 70-110 : TESTED A T [facility] 6720 (BEAKER) (test code = [facility], 153) 32570: Lactation Specialist/Techni patricia ID = [id number] for MICHAEL ANDERSON POCT-GLUCOSE [id number] 21:40:51 Test Item Value Reference Range Interpretation Comments POC-GLUCOSE METER 54 mg/dL 70-110 L : TESTED A T [facility] 6720 (BEAKER) (test code = [facility], 1538) 25598: Lactation Specialist/Techni patricia ID = [id number] for MICHAEL ANDERSON POCT-GLUCOSE [id number] 21:24:48 Test Item Value Reference Range Interpretation Comments POC-GLUCOSE METER 46 mg/dL 70-110 L : TESTED A T [facility] 6720 (BEAKER) (test code = [facility], 1538) 03745: Lactation Specialist/Techni patricia ID = [id number] for MICHAEL ANDERSON POCT-GLUCOSE [id number] 17:55:47 Test Item Value Reference Range Interpretation Comments POC-GLUCOSE METER 275 mg/dL 70-110 H : TESTED A T [facility] 6720 (BEAKER) (test code = [facility], 153) 72367: Lactation Specialist/Techni patricia ID = [id number] for OR ALESSIO AGUILAR HEPATITIS B CORE ANTIBODY, [id number] 15:32:21 Test Item Value Reference Range Interpretation Comments HEPATITIS B CORE TOTAL ANTIBODY Nonreactive Nonreactive (BEAKER) (test code = 497) Lactation Specialist ID - ADMINHEPATITIS B CORE ANTIBODY, [id number] 15:32:20 Test Item Value Reference Range Interpretation Comments HEPATITIS B CORE IGM ANTIBODY Nonreactive Nonreactive (BEAKER) (test code = 645) Lactation Specialist ID - ADMINHEPATITIS B SURFACE [id number] 15:32:19 Test Item Value Reference Range Interpretation Comments HEPATITIS B SURFACE ANTIGEN (2) Nonreactive Nonreactive (BEAKER) (test code = 2585) Specimen is considered negative for HBsAg.POCT-GLUCOSE [id number] 12:42:13 Test Item Value Reference Range Interpretation Comments POC-GLUCOSE METER 145 mg/dL 70-110 H : TESTED A T [facility] 6720 (BEAKER) (test code = [facility], 153) 38208: Lactation Specialist/Techni patricia ID = [id number] for OR ALESSIO AGUILAR POCT-GLUCOSE [id number] 11:26:37 Test Item Value Reference Range Interpretation Comments POC-GLUCOSE METER 119 mg/dL 70-110 H : TESTED A T [facility] 6720 (BEAKER) (test code = [facility], 1538) 09246: Lactation Specialist/Techni patricia ID = [id number] for Tsang Waylon huffmania XR CHEST 1 VIEW PORTABLE / [id number] 08:39:04 [facility] : 1955 Sex: FXR [...] Signed By: Garret Morel04/06/2023 08:41 CDTWorkstation Name: [id number] [id number] 08:12:38 Test Item Value Reference Range Interpretation Comments POC-GLUCOSE METER 199 mg/dL 70-110 H : TESTED A T [facility] 6720 (BEAKER) (test code = [facility] [place], 1538) 01978: Lactation Specialist/Techni patricia ID = [id number] for ALESSIO JENKINS BASIC METABOLIC [id number] 05:31:29 Test Item Value Reference Range Interpretation [...] not appl icable for dialysis patien ts Lactation Specialist ID - JAKE [id number] 05:28:25 Test Item Value Reference Range Interpretation Comments MAGNESIUM (BEAKER) (test code = 1.7 mg/dL 1.6-2.6 627) Lactation Specialist ID Gali JOSEPH [id number] 05:28:25 Test Item Value Reference Range Interpretation Comments PHOSPHORUS (BEAKER) (test code = 3.1 mg/dL 2.3-4.7 604) Lactation Specialist ID Gali JOSEPH WPT/[id number] 05:07:14 Test Item Value Reference Range Interpretation [...] mechanical heart valves.CBC W/PLT COUNT & AUTO [id number] 05:03:56 Test Item Value Reference Range Interpretation [...] (BEAKER) (test code = 2801) OXYGEN SATURATION, [id number] 04:54:52 Test Item Value Reference Range Interpretation Comments O2 SATURATION (MEASURED) (BEAKER) 86.1 % (test code = 1455) POCT-GLUCOSE [id number] 21:09:55 Test Item Value Reference Range Interpretation Comments POC-GLUCOSE METER 128 mg/dL 70-110 H : TESTED A T [facility] 6720 (BEAKER) (test code = [facility], 1538) 49336: Lactation Specialist/Techni patricia ID = [id number] for KLARISSA DICKEY POCT-GLUCOSE [id number] 12:22:40 Test Item Value Reference Range Interpretation Comments POC-GLUCOSE METER 210 mg/dL 70-110 H : TESTED A T [facility] 6720 (BEAKER) (test code = [facility], 1538) 26135: Lactation Specialist/Techni patricia ID = [id number] for JORDAN DE LA GARZA POCT-GLUCOSE [id number] 07:41:36 Test Item Value Reference Range Interpretation Comments POC-GLUCOSE METER 120 mg/dL 70-110 H : TESTED A T [facility] 6720 (BEAKER) (test code = [facility], 1538) 15323: Lactation Specialist/Techni patricia ID = [id number] for JORDAN DE LA GARZA XR CHEST 1 VIEW PORTABLE / [id number] 07:02:52 [facility] VANDANA : 1955 Sex: FXR CHEST 1 VIEW [...] Signed By: Garret Morel04/05/2023 07:04 CDTWorkstation Name: [id number] METABOLIC [id number] 06:07:28 Test Item Value Reference Range Interpretation [...] high >=90 G2 Mildly decreased 60-89 G3a Mild ly to moderately 45-5 9 G3b Moderately to [...] not appl icable for dialysis patien ts Lactation Specialist ID - [id number] 06:02:36 Test Item Value Reference Range Interpretation Comments MAGNESIUM (BEAKER) (test code = 1.8 mg/dL 1.6-2.6 627) Lactation Specialist ID - [id number] 06:02:36 Test Item Value Reference Range Interpretation Comments PHOSPHORUS (BEAKER) (test code = 4.7 mg/dL 2.3-4.7 604) Lactation Specialist ID - ADMINOXYGEN SATURATION, [id number] 04:41:31 Test Item Value Reference Range Interpretation Comments O2 SATURATION (MEASURED) (BEAKER) 91.8 % (test code = 1455) CBC W/PLT COUNT & AUTO [id number] 04:40:01 Test Item Value Reference Range Interpretation [...] 0.00-1.00 PERCENT (BEAKER) (test code = 2801) [id number] 04:28:23 Test Item Value Reference Range Interpretation [...] 2.5-3.5 for patients with mechanical heart valves.POCT-GLUCOSE [id number] 22:06:47 Test Item Value Reference Range Interpretation Comments POC-GLUCOSE METER 221 mg/dL 70-110 H : TESTED A T [facility] 6720 (BEAKER) (test code = [facility], 1538) 65150: Lactation Specialist/Techni patricia ID = [id number] for Kenji Felix POCT-GLUCOSE [id number] 17:25:55 Test Item Value Reference Range Interpretation Comments POC-GLUCOSE METER 135 mg/dL 70-110 H : TESTED A T [facility] 6720 (BEAKER) (test code [facility], = 1538) 86714: Lactation Specialist/Techni patricia ID = [id number] for Ric rs, Kira POCT-GLUCOSE [id number] 12:25:14 Test Item Value Reference Range Interpretation Comments POC-GLUCOSE METER 276 mg/dL 70-110 H : TESTED A T [facility] 6720 (BEAKER) (test code [facility], = 1538) 21406: Lactation Specialist/Techni patricia ID = [id number] for Ric rs, Kira POCT-GLUCOSE [id number] 08:45:06 Test Item Value Reference Range Interpretation Comments POC-GLUCOSE METER 125 mg/dL 70-110 H : TESTED A T [facility] 6743 (BEAKER) (test code [place], = 1538) 77729: Lactation Specialist/Techni patricia ID = [id number] for Kira Longoria XR CHEST 1 VIEW PORTABLE / [id number] 06:55:01 [facility] VANDANA : 1955 Sex: FXR CHEST 1 VIEW [...] By: Garret Newell 04/04/2023 06:57 CDTWorkstation Name: [id number] METABOLIC [id number] 05:14:55 Test Item Value Reference Range Interpretation [...] not appl icable for dialysis patien ts Lactation Specialist ID - [id number] 05:03:01 Test Item Value Reference Range Interpretation Comments PHOSPHORUS (BEAKER) (test code = 3.9 mg/dL 2.3-4.7 604) Lactation Specialist ID - [id number] 05:03:00 Test Item Value Reference Range Interpretation Comments MAGNESIUM (BEAKER) (test code = 1.8 mg/dL 1.6-2.6 627) Lactation Specialist ID - ADMINB-TYPE NATRIURETIC FACTOR (BNP)2023-04-04 05:00:18 Test Item Value Reference Range Interpretation Comments B-TYPE NATRIURETIC PEPTIDE 3091 pg/mL 0-100 H (BEAKER) (test code = 700) Lactation Specialist ID - ADMINOXYGEN SATURATION, [id number] 04:53:14 Test Item Value Reference Range Interpretation Comments O2 SATURATION (MEASURED) (BEAKER) 91.0 % (test code = 1455) PT/[id number] 04:50:38 Test Item Value Reference Range Interpretation [...] mechanical heart valves.CBC W/PLT COUNT & AUTO [id number] 04:44:20 Test Item Value Reference Range Interpretation [...] PERCENT (BEAKER) (test code = 2801) POCT-GLUCOSE [id number] 21:11:58 Test Item Value Reference Range Interpretation Comments POC-GLUCOSE METER 101 mg/dL 70-110 : TESTED A T [facility] 6720 (BEAKER) (test code = [facility], 1538) 14851: Lactation Specialist/Techni patricia ID = [id number] for JUSTIN LAGUERRE POCT-GLUCOSE [id number] 18:05:50 Test Item Value Reference Range Interpretation Comments POC-GLUCOSE METER 96 mg/dL 70-110 : TESTED A T [facility] 6720 (BEAKER) (test code = [facility], 1538) 71444: Lactation Specialist/Techni patricia ID = [id number] for ROSELIA MARIAH POCT-GLUCOSE [id number] 18:05:47 Test Item Value Reference Range Interpretation Comments POC-GLUCOSE METER 117 mg/dL 70-110 H : [facility] T [facility] 6720 [facility] (test code = [facility], 1538) 85561: Lactation Specialist/Techni patricia ID = [id number] for VANDANA CABRERA, MARIAH POCT-GLUCOSE [id number] 09:13:48 Test Item Value Reference Range Interpretation Comments POC-GLUCOSE METER 134 mg/dL 70-110 H : TESTED A T [facility] 6720 (BEAKER) (test code = [facility], 1538) 44638: Lactation Specialist/Techni patricia ID = [id number] for VANDANA HN, MARIAH XR CHEST 1 VIEW PORTABLE / [id number] 07:19:30 [facility] : 1955 Sex: FXR [...] Signed By: Garret Morel04/03/2023 07:21 CDTWorkstation Name: [id number] [id number] 06:07:29 Test Item Value Reference Range Interpretation Comments POC-GLUCOSE METER 247 mg/dL 70-110 H : TESTED A T [facility] 6720 (BEAKER) (test code [facility], = 1538) 74684: Lactation Specialist/Techni patricia ID = [id number] for Ric dulce maria Kira POCT-GLUCOSE [id number] 06:06:48 Test Item Value Reference Range Interpretation Comments POC-GLUCOSE METER 228 mg/dL 70-110 H : TESTED A T [facility] 6720 (BEAKER) (test code = [facility], 1538) 09404: Lactation Specialist/Techni patricia ID = [id number] for Luke mccarty (contract)[employer] BASIC METABOLIC [id number] 05:38:59 Test Item Value Reference Range Interpretation [...] not appl icable for dialysis patien ts Lactation Specialist ID - EOCBC W/PLT COUNT & AUTO [id number] 05:34:10 Test Item Value Reference Range Interpretation [...] 0.00-1.00 PERCENT (BEAKER) (test code = 2801) [id number] 05:26:01 Test Item Value Reference Range Interpretation Comments MAGNESIUM (BEAKER) (test code = 1.7 mg/dL 1.6-2.6 627) Lactation Specialist ID - [id number] 05:26:01 Test Item Value Reference Range Interpretation Comments PHOSPHORUS (BEAKER) (test code = 5.1 mg/dL 2.3-4.7 H 604) Lactation Specialist ID - EOPT/KTQO7762-32-07 05:09:39 Test Item Value Reference Range Interpretation [...] for patients with mechanical heart valves.OXYGEN SATURATION, [id number] 05:02:16 Test Item Value Reference Range Interpretation Comments O2 SATURATION (MEASURED) (TRAN) 79.5 % (test code = 1455) XR CHEST 1 VIEW PORTABLE / [id number] 23:54:34 [facility] : 1955 Sex: FEXAMINATION: XR CHEST 1 VIEW PORTABLE / BEDSIDE INDICATION: s/p ACB surgeryCOMPARISON: CXR of the prior day FINDINGS:LINES/TUBES: Right IJ tunneled thousand catheter unchanged. LUNGS: Stable lung volumes, central pulmonary vascular congestion, andmild bilateral diffuse hazy opacities. No new airspace consolidation.PLEURA: No pleural effusion or pneumothorax.MEDIASTINUM: The cardiomediastinal silhouette isstable in size andshape. Atherosclerotic calcifications of the thoracic aorta.BONES/SOFT TISSUES: Noacute osseous injury. Sternotomy wires unchanged.Unchanged cervical spine fusion hardware.ABDOMEN: No free air under the diaphragm.IMPRESSION:No significant interval change.Electronically Signed By: Amadou Cee04/02/2023 23:56 CDTWorkstation Name: [id number] METER 2023-04-02 21:27:40 Test Item Value Reference Range Interpretation Comments POC-GLUCOSE METER 93 mg/dL 70-110 : TESTED A T [facility] 6720 (TRAN) (test code = [facility] [place], 153) 84193: Lactation Specialist/Techni patricia ID = [id number] for JORDAN HAJIO POCT-GLUCOSE [id number] 18:32:05 Test Item Value Reference Range Interpretation Comments POC-GLUCOSE METER 273 mg/dL 70-110 H : TESTED A T [facility] 6720 ([employer]) (test code = [facility] Barreto [facility], 153) 54735: Lactation Specialist/Techni patricia ID = [id number] for VANDANA HN, MARIAH BUN AND CREATININE [id number] 12:51:19 Test Item Value Reference Range Interpretation Comments BLOOD UREA 54 mg/dL 7-21 H NITROGEN (BEAKER) (test code = 354) CREATININE 5.73 mg/dL 0.57-1.25 H (BEAKER) (test code = 358) BUN/CREAT RATIO 9 For a normal individual on (BEAKER) (test a normal diet , the code = reference inter nahum for the [id number]) mass ratio rang es between 12:1 and 20:1 ( BUN in mg/dL/creatinin e in mg/dL) EGFR (BEAKER) 8 Interpretatio n of eGFR [...] appl icable for dialysis patien ts POCT-GLUCOSE [id number] 12:20:54 Test Item Value Reference Range Interpretation Comments POC-GLUCOSE METER 265 mg/dL 70-110 H : TESTED A T [facility] 6720 (BEAKER) (test code = NATASHAAZ Estevan [facility], 153) 23687: Lactation Specialist/Techni patricia ID = [id number] for VANDANA HN, MARIAH POCT-GLUCOSE [id number] 12:20:52 Test Item Value Reference Range Interpretation Comments POC-GLUCOSE METER 126 mg/dL 70-110 H : TESTED A T [facility] 6720 (BEAKER) (test code = SARMAD Barreto [facility], 1538) 38339: Lactation Specialist/Techni patricia ID = [id number] for MARIAH CALDERON POCT-GLUCOSE [id number] 06:56:10 Test Item Value Reference Range Interpretation Comments POC-GLUCOSE METER 167 mg/dL 70-110 H : TESTED A T [facility] 6720 (BEAKER) (test code TARAN [facility], = 1538) 82959: Lactation Specialist/Techni patricia ID = [id number] for Kira Longoria [id number] 06:03:17 Test Item Value Reference Range Interpretation Comments FERRITIN (BEAKER) (test code = 1454.96 ng/mL 5.00-275.00 H 361) Lactation Specialist ID - BSIRON, TIBC, % SAT. (WITHOUT FERRITIN)2023-04-02 05:41:53 Test Item Value Reference Range Interpretation Comments IRON (BEAKER) (test code = 547) 32.0 ug/dL 40.0-160.0 L TOTAL IRON BINDING CAPACITY 208 ug/dL 250-450 L (BEAKER) (test code = 769) IRON % SATURATION (2) (BEAKER) 15 % 20-55 L (test code = 2590) Lactation Specialist ID - BSBASIC METABOLIC [id number] 05:25:25 Test Item Value Reference Range Interpretation [...] not appl icable for dialysis patien ts Lactation Specialist ID - [id number] 05:23:24 Test Item Value Reference Range Interpretation Comments PHOSPHORUS (BEAKER) (test code = 4.8 mg/dL 2.3-4.7 H 604) Lactation Specialist ID - [id number] 05:23:23 Test Item Value Reference Range Interpretation Comments MAGNESIUM (BEAKER) (test code = 1.7 mg/dL 1.6-2.6 627) Lactation Specialist ID - BSVANCOMYCIN LEVEL, [id number] 05:17:20 Test Item Value Reference Range Interpretation Comments VANCOMYCIN RANDOM (BEAKER) (test 17.4 ug/mL code = 523) Reference Range: No NormalsOperator ID - ADMINCBC W/PLT COUNT & AUTO [id number] 05:08:53 Test Item Value Reference Range Interpretation [...] (BEAKER) (test code = 2801) OXYGEN SATURATION, [id number] 04:56:33 Test Item Value Reference Range Interpretation Comments O2 SATURATION (MEASURED) (BEAKER) 92.0 % (test code = 1455) [id number] 04:53:50 Test Item Value Reference Range Interpretation [...] 2.5-3.5 for patients with mechanical heart valves.POCT-GLUCOSE [id number] 23:02:53 Test Item Value Reference Range Interpretation Comments POC-GLUCOSE METER 174 mg/dL 70-110 H : TESTED A T [facility] 6720 (BEAKER) (test code = SARMAD Barreto [facility], 1538) 67147: Lactation Specialist/Techni patricia ID = [id number] for Julia Gibbs POCT-GLUCOSE [id number] 17:42:46 Test Item Value Reference Range Interpretation Comments POC-GLUCOSE METER 247 mg/dL 70-110 H : TESTED A T [facility] 6720 (BEAKER) (test code [facility], = 1538) 57570: Lactation Specialist/Techni patricia ID = [id number] for Kira Longoria POCT-GLUCOSE [id number] 12:53:12 Test Item Value Reference Range Interpretation Comments POC-GLUCOSE METER 253 mg/dL 70-110 H : TESTED A T [facility] 6720 (BEAKER) (test code [facility], = 1538) 30728: Lactation Specialist/Techni patricia ID = [id number] for Kira Longoria XR CHEST 1 VIEW PORTABLE / [id number] 10:34:07 [facility] MESERET JO : 1955 Sex: FCHEST, 1 VIEW.HISTORY: s/p [...] By: Kd Richards MD04/01/2023 10:36 CDTWorkstation Name: [id number] 07:44:39 Test Item Value Reference Range Interpretation Comments POC-GLUCOSE METER 203 mg/dL 70-110 H : [facility] T [facility] (BEAKER) (test code [facility], = 1538) 71640: Lactation Specialist/Techni patricia ID = [id number] for Kira Longoria BASIC METABOLIC [id number] 06:36:23 Test Item Value Reference Range Interpretation [...] not appl icable for dialysis patien ts Lactation Specialist ID - [id number] 06:36:15 Test Item Value Reference Range Interpretation Comments PHOSPHORUS (BEAKER) (test code = 3.9 mg/dL 2.3-4.7 604) Lactation Specialist ID - [id number] 06:36:14 Test Item Value Reference Range Interpretation Comments MAGNESIUM (BEAKER) (test code = 1.7 mg/dL 1.6-2.6 627) Lactation Specialist ID - BSCBC W/PLT COUNT & AUTO [id number] 06:23:52 Test Item Value Reference Range Interpretation [...] GRANULOCYTES-RELATIVE PERCENT (BEAKER) (test code = 2801) [id number] 06:09:26 Test Item Value Reference Range Interpretation [...] for patients with mechanical heart valves.OXYGEN SATURATION, [id number] 05:27:51 Test Item Value Reference Range Interpretation Comments O2 SATURATION (MEASURED) (BEAKER) 88.1 % (test code = 1455) POCT-GLUCOSE [id number] 20:43:26 Test Item Value Reference Range Interpretation Comments POC-GLUCOSE METER 179 mg/dL 70-110 H : TESTED A T [facility] 6720 (BEAKER) (test code = [facility], 1538) 14507: Lactation Specialist/Techni patricia ID = [id number] for KLARISSA DICKEY POCT-GLUCOSE [id number] 12:20:48 Test Item Value Reference Range Interpretation Comments POC-GLUCOSE METER 298 mg/dL 70-110 H : TESTED A T [facility] 6720 (BEAKER) (test code [facility], = 1538) 94154: Lactation Specialist/Techni patricia ID = [id number] for Kira Longoria XR CHEST 1 VIEW PORTABLE / [id number] 12:20:02 [facility] : 1955 Sex: FEXAMINATION: XR [...] Signed By: Odalis Kirkland03/31/2023 12:22 CDTWorkstation Name: [id number] METABOLIC [id number] 05:28:33 Test Item Value Reference Range Interpretation [...] not appl icable for dialysis patien ts Lactation Specialist ID - [id number] 05:07:39 Test Item Value Reference Range Interpretation Comments PHOSPHORUS (BEAKER) (test code = 2.3 mg/dL 2.3-4.7 604) Lactation Specialist ID - [id number] 05:07:38 Test Item Value Reference Range Interpretation Comments MAGNESIUM (BEAKER) (test code = 1.7 mg/dL 1.6-2.6 627) Lactation Specialist ID - BSOXYGEN SATURATION, [id number] 04:55:11 Test Item Value Reference Range Interpretation Comments O2 SATURATION (MEASURED) (BEAKER) 87.8 % (test code = 1455) PT/[id number] 04:49:30 Test Item Value Reference Range Interpretation [...] mechanical heart valves.CBC W/PLT COUNT & AUTO [id number] 04:42:55 Test Item Value Reference Range Interpretation [...] PERCENT (BEAKER) (test code = 2801) POCT-GLUCOSE [id number] 21:51:20 Test Item Value Reference Range Interpretation Comments POC-GLUCOSE METER 136 mg/dL 70-110 H : TESTED A T [facility] 6720 (BEAKER) (test code = [facility], 1538) 87185: Lactation Specialist/Techni patricia ID = [id number] for MELONY WETZEL POCT-GLUCOSE [id number] 17:36:25 Test Item Value Reference Range Interpretation Comments POC-GLUCOSE METER 158 mg/dL 70-110 H : TESTED A T [facility] 6720 ([facility]) (test code [facility], = 1538) 59978: Lactation Specialist/Techni patricia ID = [id number] for Rci rs, Kira POCT-GLUCOSE [id number] 13:58:12 Test Item Value Reference Range Interpretation Comments POC-GLUCOSE METER 157 mg/dL 70-110 H : TESTED A T [facility] 6720 ([facility]) (test code [facility], = 1538) 57864: Lactation Specialist/Techni patricia ID = [id number] for Ric rs, Kira POCT-GLUCOSE [id number] 13:57:08 Test Item Value Reference Range Interpretation Comments POC-GLUCOSE METER 261 mg/dL 70-110 H : TESTED A T [facility] 6720 (BEAKER) (test code = [facility], 1538) 25944: Lactation Specialist/Techni patricia ID = [id number] for Isela Nicole POCT-GLUCOSE [id number] 13:57:07 Test Item Value Reference Range Interpretation Comments POC-GLUCOSE METER 136 mg/dL 70-110 H : TESTED A T [facility] 6720 (BEAKER) (test code = [facility], 1538) 28170: Lactation Specialist/Techni patricia ID = [id number] for Luke mccarty (contract)[employer] XR CHEST 1 VIEW PORTABLE / [id number] 07:22:39 [facility] : 1955 Sex: FEXAM: XR CHEST 1 VIEWDATE: 03/30/2023 5:18 AM INDICATION: s/p ACB surgeryCOMPARISON: Chest x-ray 03/29/2023TECHNIQUE: AP chest.FINDINGS/IMPRESSION:Lines, tubes and hardware: Interval removal of left IJ central venouscatheter.Lungs and pleura: Low lung volumes with Interval increase in bilateralinterstitial opacities. The costophrenic sulci are sharp withouteffusion. No evidence of pneumothoraxHeart and mediastinum: The heart size is normal. The mediastinalcontours are normal. Bones and soft tissues: No acute abnormality.Electronically Signed By: Oleksandr Benedict03/30/2023 07:24 CDTWorkstation Name: [id number] METABOLIC PANEL 2023-03-30 07:18:59 Test Item Value [...] not appl icable for dialysis patien ts Lactation Specialist ID - [id number] 07:18:35 Test Item Value Reference Range Interpretation Comments MAGNESIUM (BEAKER) (test code = 1.8 mg/dL 1.6-2.6 627) Lactation Specialist ID - [id number] 07:18:35 Test Item Value Reference Range Interpretation Comments PHOSPHORUS (BEAKER) (test code = 4.3 mg/dL 2.3-4.7 604) Lactation Specialist ID - [id number] 06:56:11 Test Item Value Reference Range Interpretation [...] mechanical heart valves.CBC W/PLT COUNT & AUTO [id number] 06:54:13 Test Item Value Reference Range Interpretation [...] (BEAKER) (test code = 2801) OXYGEN SATURATION, [id number] 06:31:46 Test Item Value Reference Range Interpretation Comments O2 SATURATION (MEASURED) (BEAKER) 77.7 % (test code = 1455) POCT-GLUCOSE [id number] 06:26:00 Test Item Value Reference Range Interpretation Comments POC-GLUCOSE METER 182 mg/dL 70-110 H : TESTED A T [facility] 6720 (BEAKER) (test code = [facility], 1538) 70290: Lactation Specialist/Techni patricia ID = [id number] for Prosper Galvez POCT-GLUCOSE [id number] 01:14:34 Test Item Value Reference Range Interpretation Comments POC-GLUCOSE METER 165 mg/dL 70-110 H : TESTED A T [facility] 6720 (BEAKER) (test code = [facility], 1538) 81494: Lactation Specialist/Techni patricia ID = [id number] for DO CHACONOctober POCT-GLUCOSE [id number] 00:00:21 Test Item Value Reference Range Interpretation Comments POC-GLUCOSE METER 142 mg/dL 70-110 H : TESTED A T [facility] 6720 (BEAKER) (test code = [facility], 1538) 33067: Lactation Specialist/Techni patricia ID = [id number] for DO CHACONOctober COMPREHENSIVE METABOLIC [id number] 22:40:52 Test Item Value Reference Range Interpretation [...] L (BEAKER) (test code = 347) EGFR ([facility]) 11 Interpretatio n of eGFR (test code [...] not appl icable for dialysis patien ts Lactation Specialist ID - ADMINPOCT-GLUCOSE [id number] 22:25:49 Test Item Value Reference Range Interpretation Comments POC-GLUCOSE METER 61 mg/dL 70-110 L : TESTED A T [facility] 6720 ([employer]) (test code = [facility], 1538) 11151: Lactation Specialist/Techni patricia ID = [id number] for Take [employer], [employer] POCT-GLUCOSE [id number] 22:05:54 Test Item Value Reference Range Interpretation Comments POC-GLUCOSE METER 61 mg/dL 70-110 L : TESTED A T [facility] 6720 ([employer]) (test code = [facility], 1538) 60105: Lactation Specialist/Techni patricia ID = [id number] for Take [employer], [employer] POCT-GLUCOSE [id number] 21:38:12 Test Item Value Reference Range Interpretation Comments POC-GLUCOSE METER 52 mg/dL 70-110 L : TESTED A T [facility] 6720 ([employer]) (test code = [facility], 1538) 32325: Lactation Specialist/Techni patricia ID = [id number] for Take [employer], [employer] MISCELLANEOUS LAB [id number] 16:02:00 Test Item Value Reference Range Interpretation Comments SCAN RESULT (test code = See scanned report. [id number]) OXYGEN SATURATION, [id number] 15:33:00 Test Item Value Reference Range Interpretation Comments O2 SATURATION (MEASURED) ([facility]) 70.9 % (test code = 1455) POCT-GLUCOSE [id number] 13:11:45 Test Item Value Reference Range Interpretation Comments POC-GLUCOSE METER 151 mg/dL 70-110 H : TESTED A T [facility] 6720 (TRAN) (test code [facility], = 1538) 15716: Lactation Specialist/Techni patricia ID = [id number] for Agusto baron ([facility]), Ngozi OXYGEN SATURATION, [id number] 11:18:10 Test Item Value Reference Range Interpretation Comments O2 SATURATION (MEASURED) (TRAN) 67.5 % (test code = 1455) XR CHEST 1 VIEW PORTABLE / [id number] 10:22:38 [facility] 1955 Sex: FCLINICAL HISTORY: s/p ACB surgeryTECHNIQUE: 1 view of the chest.COMPARISON: 03/28/2023IMPRESSION:Support lines unchanged. Bilateral lower lung atelectasis unchanged. Nosignificant pleural fluid. The cardiomediastinal silhouette is magnifiedby technique with sternotomy wires. Cervical fusion hardware againseen .Electronically Signed By: Jeferson Novak03/29/2023 10:24 CDTWorkstation Name: [id number] 09:41:54 Test Item Value Reference Range Interpretation Comments POC-GLUCOSE METER 135 mg/dL 70-110 H : TESTED A T [facility] 6720 (TRAN) (test code [facility], = 1538) 00583: Lactation Specialist/Techni patricia ID = [id number] for Agusto baron ([facility]), Ngozi OXYGEN SATURATION, [id number] 04:54:46 Test Item Value Reference Range Interpretation Comments O2 SATURATION (MEASURED) (BEAKER) 72.4 % (test code = 1455) BASIC METABOLIC [id number] 04:52:33 Test Item Value Reference Range Interpretation [...] not appl icable for dialysis patien ts Lactation Specialist ID - [id number] 04:50:37 Test Item Value Reference Range Interpretation Comments MAGNESIUM (BEAKER) (test code = 1.7 mg/dL 1.6-2.6 627) Lactation Specialist ID - [id number] 04:50:37 Test Item Value Reference Range Interpretation Comments PHOSPHORUS (BEAKER) (test code = 3.0 mg/dL 2.3-4.7 604) Lactation Specialist ID - EMPT/ACIB7752-68-47 04:25:05 Test Item Value Reference Range Interpretation [...] mechanical heart valves.CBC W/PLT COUNT & AUTO [id number] 04:21:54 Test Item Value Reference Range Interpretation [...] PERCENT (BEAKER) (test code = 2801) POCT-GLUCOSE [id number] 21:50:45 Test Item Value Reference Range Interpretation Comments POC-GLUCOSE METER 174 mg/dL 70-110 H : TESTED A T [facility] 6720 (BEAKER) (test code = SARMAD Estevan [facility], 1538) 05971: Lactation Specialist/Techni patricia ID = [id number] for DO October CT CHEST WITHOUT IV [id number] 21:18:38 [facility] : 1955 Sex: FTECHNIQUE: CT scan of [...] Signed By: Shelton Donaldson03/28/2023 21:20 CDTWorkstation Name: [id number] CHEST 1 VIEW PORTABLE / [id number] 18:56:16 [facility] : 1955 Sex: FXR CHEST 1 VIEW PORTABLE / BEDSIDETECHNIQUE: Frontal view(s) of the chest.INDICATION: swan placementswan placementCOMPARISON: Chest radiograph 13 hours priorFINDINGS/IMPRESSION:Lines/Tubes: Interval placement of a left IJ [place]-Delicia catheter with tipat the main pulmonary outflow tract. Remaining lines and tubes areunchanged.Lungs/pleura: Mild interstitial airspace opacities. No pleural effusion.No pneumothorax.Heart and Mediastinum: Unchanged.Soft Tissues and Bones: Unchanged.Electronically Signed By: Ese Butler03/28/2023 18:58 CDTWorkstation Name: [id number] 18:29:00 Test Item Value Reference Range Interpretation Comments POC-GLUCOSE METER 86 mg/dL 70-110 : Notified RN/MD: TESTED ([facility]) (test code = AT [facility] 6720 [facility] 1538) [facility], 770 30: Lactation Specialist/Techni patricia ID = [id number] for Ryan Anaya OXYGEN SATURATION, [id number] 16:29:39 Test Item Value Reference Range Interpretation Comments O2 SATURATION (MEASURED) ([facility]) 85.3 % (test code = 1455) [id number] 14:08:11 Test Item Value Reference Range Interpretation Comments PARTIAL THROMBOPLASTIN TIME 35.1 seconds 22.5-36.0 ([facility]) (test code = 760) POCT-GLUCOSE [id number] 12:10:15 Test Item Value Reference Range Interpretation Comments POC-GLUCOSE METER 144 mg/dL 70-110 H : TESTED A T [facility] 6720 ([facility]) (test code = SARMAD Barreto [facility], 1538) 23008: Lactation Specialist/Techni patricia ID = [id number] for Krysta bales([facility])Enrique OXYGEN SATURATION, [id number] 10:57:00 Test Item Value Reference Range Interpretation Comments O2 SATURATION (MEASURED) (BEAKER) 78.0 % (test code = 1455) XR CHEST 1 VIEW PORTABLE / [id number] 09:16:56 [facility] VANDANA : 1955 Sex: FCLINICAL HISTORY: s/p ACB surgeryTECHNIQUE: 1 view of the chest.COMPARISON: 03/27/2023IMPRESSION:Bilateral central lines unchanged. Pulmonary vascular congestion againseen. No significant pleural fluid. Cardiomegaly again seenpoststernotomy.Electronically Signed By: Jeferson Novak03/28/2023 09:18 CDTWorkstation Name: [id number] 07:45:14 Test Item Value Reference Range Interpretation Comments POC-GLUCOSE METER 121 mg/dL 70-110 H : TESTED A T [facility] 6720 ([facility]) (test code = [place], 1538) 38219: Lactation Specialist/Techni patricia ID = [id number] for Krysta bales([facility]) Enrique [id number] 06:30:11 Test Item Value Reference Range Interpretation [...] for patients with mechanical heart valves.BASIC METABOLIC [id number] 06:22:32 Test Item Value Reference Range Interpretation [...] not appl icable for dialysis patien ts Lactation Specialist ID - [id number] 06:20:13 Test Item Value Reference Range Interpretation Comments PHOSPHORUS (BEAKER) (test code = 3.5 mg/dL 2.3-4.7 604) Lactation Specialist ID - [id number] 06:20:12 Test Item Value Reference Range Interpretation Comments MAGNESIUM (BEAKER) (test code = 1.8 mg/dL 1.6-2.6 627) Lactation Specialist ID - EMCBC W/PLT COUNT & AUTO [id number] 06:05:16 Test Item Value Reference Range Interpretation [...] (BEAKER) (test code = 2801) OXYGEN SATURATION, [id number] 05:40:56 Test Item Value Reference Range Interpretation Comments O2 SATURATION (MEASURED) (BEAKER) 66.5 % (test code = 1455) OXYGEN SATURATION, [id number] 22:12:22 Test Item Value Reference Range Interpretation Comments O2 SATURATION (MEASURED) (BEAKER) 48.3 % (test code = 1455) POCT-GLUCOSE [id number] 22:01:20 Test Item Value Reference Range Interpretation Comments POC-GLUCOSE METER 255 mg/dL 70-110 H : TESTED A T [facility] 6720 (BEAKER) (test code = [place], 1538) 82955: Lactation Specialist/Techni patricia ID = [id number] for Morgan rris, Kari POCT-GLUCOSE [id number] 16:48:56 Test Item Value Reference Range Interpretation Comments POC-GLUCOSE METER 155 mg/dL 70-110 H : Notified RN/MD: (TRAN) (test code = TESTED AT [place] [address]) [facility], [address]: Lactation Specialist/Techni patricia ID = [id number] for Mo rris, Kylee [id number] 15:59:55 Test Item Value Reference Range Interpretation Comments PARTIAL THROMBOPLASTIN TIME 42.3 seconds 22.5-36.0 H (BEAKER) (test code = 760) [id number] 14:37:38 Test Item Value Reference Range Interpretation Comments PARTIAL THROMBOPLASTIN TIME > seconds 22.5-36.0 HH (AKER) (test code = 760) OXYGEN SATURATION, [id number] 14:11:04 Test Item Value Reference Range Interpretation Comments O2 SATURATION (MEASURED) ([facility]) 48.1 % (test code = 1455) POCT-GLUCOSE [id number] 11:33:26 Test Item Value Reference Range Interpretation Comments POC-GLUCOSE METER 188 mg/dL 70-110 H : Notified RN/MD: (TRAN) (test code = TESTED AT [place] [address]) [facility], [address]: Lactation Specialist/Techni patricia ID = [id number] for Mo rris, Kylee OXYGEN SATURATION, [id number] 11:11:52 Test Item Value Reference Range Interpretation Comments O2 SATURATION (MEASURED) ([facility]) 52.7 % (test code = 1455) POCT-GLUCOSE [id number] 07:44:06 Test Item Value Reference Range Interpretation Comments POC-GLUCOSE METER 118 mg/dL 70-110 H : Notified RN/MD: (RTAN) (test code = TESTED AT [place] [address]) [facility], 6[address]: Lactation Specialist/Techni patricia ID = [id number] for Mo rris, Kylee XR CHEST 1 VIEW PORTABLE / [id number] 07:17:47 [facility] : 1955 Sex: FCLINICAL HISTORY: s/p ACB surgeryTECHNIQUE: 1 view of the chest.COMPARISON: 03/26/2023IMPRESSION:The supporting lines and tubes are similar appearing. Mild lungopacities again seen without new lobar consolidation or increasingpleural fluid. The cardiomediastinal silhouette is magnified bytechnique with sternotomy wires. Electronically Signed By: Jeferson Novak03/27/2023 07:19 CDTWorkstation Name: [id number] 06:10:36 Test Item Value Reference Range Interpretation [...] for patients with mechanical heart valves.OXYGEN SATURATION, [id number] 04:41:11 Test Item Value Reference Range Interpretation Comments O2 SATURATION (MEASURED) (BEAKER) 61.1 % (test code = 1455) BASIC METABOLIC [id number] 04:28:59 Test Item Value Reference Range Interpretation [...] not appl icable for dialysis patien ts Lactation Specialist ID - EMPT/[id number] 04:28:53 Test Item Value Reference Range Interpretation Comments PROTIME (BEAKER) (test 18.5 seconds 11.9-14.2 H code = 759) INR (BEAKER) (test 1.65 See_Comment [Automat ed code = 370) message] The [employer] stem which generated this result transmitted reference [...] is 2.5-3.5 for patients with mechanical heart valves.[id number] 04:20:08 Test Item Value Reference Range Interpretation Comments MAGNESIUM (BEAKER) (test code = 1.9 mg/dL 1.6-2.6 627) Lactation Specialist ID - [id number] 04:20:08 Test Item Value Reference Range Interpretation Comments PHOSPHORUS (BEAKER) (test code = 2.6 mg/dL 2.3-4.7 604) Lactation Specialist ID - EMCBC W/PLT COUNT & AUTO [id number] 03:50:42 Test Item Value Reference Range Interpretation [...] PERCENT (BEAKER) (test code = 2801) POCT-GLUCOSE [id number] 21:45:54 Test Item Value Reference Range Interpretation Comments POC-GLUCOSE METER 167 mg/dL 70-110 H : TESTED A T [facility] 6720 ([facility]) (test code = [facility], 153) 6[address]: Lactation Specialist/Techni patricia ID = [id number] for DO MINGUEZ, LUIS OXYGEN SATURATION, [id number] 18:11:23 Test Item Value Reference Range Interpretation Comments O2 SATURATION (MEASURED) (AKER) 55.9 % (test code = 1455) LACTIC ACID, [id number] 17:55:23 Test Item Value Reference Range Interpretation Comments LACTATE BLOOD ARTERIAL (2) 1.1 mmol/L 0.5-2.0 (AKER) (test code = 2874) Lactation Specialist ID - MMPOCT-GLUCOSE [id number] 17:50:42 Test Item Value Reference Range Interpretation Comments POC-GLUCOSE METER 105 mg/dL 70-110 : TESTED A T [facility] 6720 ([facility]) (test code = [facility], 153) 83[address]: Lactation Specialist/Techni patricia ID = [id number] for Po ss, Ynia POCT-GLUCOSE [id number] 12:09:49 Test Item Value Reference Range Interpretation Comments POC-GLUCOSE METER 231 mg/dL 70-110 H : TESTED A T [facility] 6720 (BEAKER) (test code = [facility], 153) 37965: Lactation Specialist/Techni patricia ID = [id number] for Po ss, Yina POCT-GLUCOSE [id number] 07:53:56 Test Item Value Reference Range Interpretation Comments POC-GLUCOSE METER 150 mg/dL 70-110 H : TESTED A T [facility] 6720 (BEAKER) (test code = [place], 1538) [address]: Lactation Specialist/Techni patricia ID = [id number] for Po Yina earl XR CHEST 1 VIEW PORTABLE / [id number] 06:57:52 [facility] V[facility]DANA : 1955 Sex: FCLINICAL HISTORY: s/p ACB surgeryTECHNIQUE: 1 view of the chest.COMPARISON: 03/25/2023IMPRESSION:Right jugular line and left jugular sheath unchanged. Bilateral chesttubes have been removed.No pneumothorax. Mildly prominent lung markings are unchanged. There isno significant pleural fluid. The cardiomediastinal silhouette ismagnified by technique with sternotomy wires. Electronically Signed By: Jeferson Novak03/26/2023 06:59 CDTWorkstation Name: [id number] 05:46:07 Test Item Value Reference Range Interpretation Comments PARTIAL THROMBOPLASTIN TIME 61.4 seconds 22.5-36.0 H (BEAKER) (test code = 760) BASIC METABOLIC [id number] 04:48:14 Test Item Value Reference Range Interpretation [...] not appl icable for dialysis patien ts Lactation Specialist ID - MARCOCBC W/PLT COUNT & AUTO [id number] 04:37:01 Test Item Value Reference Range Interpretation [...] 0.00-1.00 PERCENT (BEAKER) (test code = 2801) [id number] 04:36:37 Test Item Value Reference Range Interpretation Comments PHOSPHORUS (BEAKER) (test code = 4.0 mg/dL 2.3-4.7 604) Lactation Specialist ID - [id number] 04:36:36 Test Item Value Reference Range Interpretation Comments MAGNESIUM (BEAKER) (test code = 1.9 mg/dL 1.6-2.6 627) Lactation Specialist ID - MARCOPT/IRQM5565-56-23 04:35:52 Test Item Value Reference Range Interpretation [...] for patients with mechanical heart valves.OXYGEN SATURATION, [id number] 04:29:23 Test Item Value Reference Range Interpretation Comments O2 SATURATION (MEASURED) (TRAN) 58.3 % (test code = 1455) POCT-GLUCOSE [id number] 22:52:04 Test Item Value Reference Range Interpretation Comments POC-GLUCOSE METER 138 mg/dL 70-110 H : Notified RN/MD: TESTED (TRAN) (test code AT [facility] 6720 [place] = 1538) [facility], 770 [address]: Lactation Specialist/Techni patricia ID = [id number] for Aldair Chapman POCT-GLUCOSE [id number] 12:57:00 Test Item Value Reference Range Interpretation Comments POC-GLUCOSE METER 144 mg/dL 70-110 H : TESTED A T [facility] 6720 ([facility]) (test code = SARMAD Barreto [facility], 1538) [address]: Lactation Specialist/Techni patricia ID = [id number] for Pawan trimble (DivFlt), Caitl in XR CHEST 1 VIEW PORTABLE / [id number] 05:50:32 [facility] : 1955 Sex: FExam:XR CHEST 1 VIEW PORTABLE / BEDSIDEDate: 03/25/2023 5:49 AMIndication:s/p ACB surgeryComparison: Yesterday.IMPRESSION:Lines/Tubes:Unchanged postoperative changes and support devices.Lungs and Pleura : Nopleural effusion. No pneumothorax. Mild perihilarand interstitial opacities redemonstrated.Heart/Medi astinum:Unchanged.Bones/Soft Tissues: No acute osseous abnormality.Upper abdomen: Unremarkable.Electronically Signed By: Ricky Hernandez03/25/2023 05:52 CDTWorkstation Name: [id number], [id number] 04:33:23 Test Item Value Reference Range Interpretation Comments CALCIUM IONIZED (BEAKER) (test 1.19 mmol/L 1.12-1.27 code = 698) PH, BLOOD (BEAKER) (test code = 7.39 1810) BASIC METABOLIC [id number] 04:29:47 Test Item Value Reference Range Interpretation [...] not appl icable for dialysis patien ts Lactation Specialist ID - JAKE [id number] 04:25:02 Test Item Value Reference Range Interpretation Comments PHOSPHORUS (BEAKER) (test code = 3.1 mg/dL 2.3-4.7 604) Lactation Specialist ID - JAKE [id number] 04:25:01 Test Item Value Reference Range Interpretation Comments MAGNESIUM (BEAKER) (test code = 1.9 mg/dL 1.6-2.6 627) Lactation Specialist ID - JAKE WPT/[id number] 04:17:59 Test Item Value Reference Range Interpretation [...] mechanical heart valves.CBC W/PLT COUNT & AUTO [id number] 04:14:59 Test Item Value Reference Range Interpretation [...] (BEAKER) (test code = 2801) OXYGEN SATURATION, [id number] 04:10:13 Test Item Value Reference Range Interpretation Comments O2 SATURATION (MEASURED) (BEAKER) 63.3 % (test code = 1455) POCT-GLUCOSE [id number] 22:45:55 Test Item Value Reference Range Interpretation Comments POC-GLUCOSE METER 257 mg/dL 70-110 H : TESTED A T [facility] 6720 (BEAKER) (test code [facility], = 1538) [address]: Lactation Specialist/Techni patricia ID = [id number] for No boyle (contract)Mitchell POCT-GLUCOSE [id number] 13:10:38 Test Item Value Reference Range Interpretation Comments POC-GLUCOSE METER 135 mg/dL 70-110 H : TESTED A T [facility] 6720 (BEAKER) (test code = [facility], 1538) [address]: Lactation Specialist/Techni patricia ID = [id number] for TAI MARTINEZ [id number] 10:52:17 Test Item Value Reference Range Interpretation Comments PARTIAL THROMBOPLASTIN TIME 49.0 seconds 22.5-36.0 H (BEAKER) (test code = 760) XR CHEST 1 VIEW PORTABLE / [id number] 05:50:17 [facility] JO : 1955 Sex: FExam:XR CHEST 1 VIEW PORTABLE / BEDSIDEDate: 03/24/2023 5:49 AMIndication:s/p ACB surgeryComparison: Yesterday.IMPRESSION:Lines/Tubes:Unchanged support devices and postoperative changes.Lungs and Pleura : Mild perihilar opacities may represent pulmonaryvascular congestion. Decreased interstitial opacities. No pleuraleffusions. No pneumothorax.Heart/Mediastinum:UnchangedBones/Soft Tissues: No acute osseous abnormality.Upper abdomen: Unremarkable.Electronically Signed By: Ricky Hernandez03/24/2023 05:52 CDTWorkstation Name: [id number] METABOLIC [id number] 04:25:29 Test Item Value Reference Range Interpretation [...] not appl icable for dialysis patien ts Lactation Specialist ID - [id number] 04:24:23 Test Item Value Reference Range Interpretation Comments PHOSPHORUS (BEAKER) (test code = 3.0 mg/dL 2.3-4.7 604) Lactation Specialist ID - MMHRDTLFJYMXJX7652-29-29 04:24:22 Test Item Value Reference Range Interpretation Comments MAGNESIUM (BEAKER) (test code = 2.1 mg/dL 1.6-2.6 627) Lactation Specialist ID - ADMINPT/HVFY5234-64-04 04:09:38 Test Item Value Reference Range Interpretation Comments PROTIME (BEAKER) (test 22.0 seconds 11.9-14.2 H code = 759) INR (BEAKER) (test 1.98 See_Comment [Automat ed code = 370) message] [employer] stem which generated this result transmitted reference [...] mechanical heart valves.CBC W/PLT COUNT & AUTO [id number] 04:03:45 Test Item Value Reference Range Interpretation [...] PERCENT (BEAKER) (test code = 2801) CALCIUM, [id number] 03:45:11 Test Item Value Reference Range Interpretation Comments CALCIUM IONIZED (BEAKER) (test 1.15 mmol/L 1.12-1.27 code = 698) PH, BLOOD (BEAKER) (test code = 7.38 1810) OXYGEN SATURATION, [id number] 03:45:10 Test Item Value Reference Range Interpretation Comments O2 SATURATION (MEASURED) (BEAKER) 47.1 % (test code = 1455) POCT-GLUCOSE [id number] 22:00:02 Test Item Value Reference Range Interpretation Comments POC-GLUCOSE METER 100 mg/dL 70-110 : TESTED A T [facility] 6720 (BEAKER) (test code = [place], 1538) [address]: Lactation Specialist/Techni patricia ID = [id number] for LIUS ALVAREZ OXYGEN SATURATION, [id number] 13:41:45 Test Item Value Reference Range Interpretation Comments O2 SATURATION (MEASURED) (BEAKER) 55.5 % (test code = 1455) XR CHEST 1 VIEW PORTABLE / [id number] 06:50:59 [facility] M[facility] VANDANA : 1955 Sex: FXR CHEST 1 VIEW [...] changes.Additional findings: None. Electronically Signed By: Taya Phelps03/23/2023 06:53 CDTWorkstation Name: [id number] METABOLIC PANEL 2023-03-23 04:26:24 Test Item Value [...] not appl icable for dialysis patien ts Lactation Specialist ID - [id number] 04:03:24 Test Item Value Reference Range Interpretation Comments PHOSPHORUS (BEAKER) (test code = 4.1 mg/dL 2.3-4.7 604) Lactation Specialist ID - [id number] 04:03:23 Test Item Value Reference Range Interpretation Comments MAGNESIUM (BEAKER) (test code = 2.3 mg/dL 1.6-2.6 627) Lactation Specialist ID - ADMINOXYGEN SATURATION, [id number] 03:59:36 Test Item Value Reference Range Interpretation Comments O2 SATURATION (MEASURED) (BEAKER) 58.0 % (test code = 1455) [id number] 03:57:20 Test Item Value Reference Range Interpretation [...] mechanical heart valves.CBC W/PLT COUNT & AUTO [id number] 03:43:34 Test Item Value Reference Range Interpretation [...] 0.00-1.00 PERCENT (BEAKER) (test code = 2801) [id number] 22:20:05 Test Item Value Reference Range Interpretation Comments SODIUM (BEAKER) (test code = 381) 137 meq/L 136-145 Lactation Specialist ID - [id number] 22:20:04 Test Item Value Reference Range Interpretation Comments POTASSIUM (BEAKER) (test code = 4.6 meq/L 3.5-5.1 379) Lactation Specialist ID - [id number] 22:20:03 Test Item Value Reference Range Interpretation Comments PHOSPHORUS (BEAKER) (test code = 3.8 mg/dL 2.3-4.7 604) Lactation Specialist ID - [id number] 22:20:02 Test Item Value Reference Range Interpretation Comments MAGNESIUM (BEAKER) (test code = 2.3 mg/dL 1.6-2.6 627) Lactation Specialist ID - ADMINOXYGEN SATURATION, [id number] 15:35:56 Test Item Value Reference Range Interpretation Comments O2 SATURATION (MEASURED) (BEAKER) 62.9 % (test code = 1455) [id number] 15:13:31 Test Item Value Reference Range Interpretation Comments PARTIAL THROMBOPLASTIN TIME 46.9 seconds 22.5-36.0 H (BEAKER) (test code = 760) [id number] 15:12:50 Test Item Value Reference Range Interpretation Comments FIBRINOGEN LEVEL (BEAKER) (test 470 mg/dl 225-434 H code = 658) PROTHROMBIN TIME/[id number] 15:12:29 Test Item Value Reference Range Interpretation Comments PROTIME (BEAKER) 20.6 seconds 11.9-14.2 H (test code = 759) INR (BEAKER) (test 1.89 See_Comment [Automat ed message] code = 370) The system [employer] generated this result transmitted ref erence range: <=5.90. The reference range was not used to int erpret this result as normal/abnormal . RECOMMENDED COUMADIN/WARFARIN INR THERAPY RANGESSTANDARD DOSE: 2.0 - 3.0 Includes: PROPHYLAXIS for venous thrombosis, systemic embolization; TREATMENT for venous thrombosis and/or pulmonary embolus.HIGH RISK: Target INR is 2.5-3.5 for patients with mechanical heart valves.CBC W/PLT COUNT & AUTO [id number] 15:07:14 Test Item Value Reference Range Interpretation [...] (BEAKER) (test code = 2801) BASIC METABOLIC [id number] 13:07:22 Test Item Value Reference Range Interpretation [...] not appl icable for dialysis patien ts Lactation Specialist ID - [id number] 13:07:22 Test Item Value Reference Range Interpretation Comments MAGNESIUM (BEAKER) (test code = 2.3 mg/dL 1.6-2.6 627) Lactation Specialist ID - [id number] 13:07:22 Test Item Value Reference Range Interpretation Comments PHOSPHORUS (BEAKER) (test code = 3.8 mg/dL 2.3-4.7 604) Lactation Specialist ID - ADMINCALCIUM, [id number] 12:38:13 Test Item Value Reference Range Interpretation Comments CALCIUM IONIZED (BEAKER) (test 1.19 mmol/L 1.12-1.27 code = 698) PH, BLOOD (BEAKER) (test code = 7.45 1810) XR CHEST 1 VIEW PORTABLE / [id number] 07:01:33 [facility] 1955 Sex: FXR [...] Signed By: Taya Phelps03/22/2023 07:03 CDTWorkstation Name: [id number] 04:35:07 Test Item Value Reference Range Interpretation Comments MAGNESIUM (BEAKER) (test code = 1.9 mg/dL 1.6-2.6 627) Lactation Specialist ID - [id number] 04:35:07 Test Item Value Reference Range Interpretation Comments PHOSPHORUS (BEAKER) (test code = 3.8 mg/dL 2.3-4.7 604) Lactation Specialist ID - ADMINBASIC METABOLIC [id number] 04:35:06 Test Item Value Reference Range Interpretation [...] not appl icable for dialysis patien ts Lactation Specialist ID - ADMINCALCIUM, [id number] 04:21:42 Test Item Value Reference Range Interpretation Comments CALCIUM IONIZED (BEAKER) (test 1.21 mmol/L 1.12-1.27 code = 698) PH, BLOOD (BEAKER) (test code = 7.35 1810) OXYGEN SATURATION, [id number] 04:21:20 Test Item Value Reference Range Interpretation [...] WBC 0-0 (BEAKER) (test code = 413) [id number] 00:50:34 Test Item Value Reference Range Interpretation Comments PHOSPHORUS (BEAKER) (test code = 2.0 mg/dL 2.3-4.7 L 604) Lactation Specialist ID - ADMINBASIC METABOLIC [id number] 00:50:33 Test Item Value Reference Range Interpretation [...] not as accur ate as Creatinine Birdie lillina in predicting glom erular filtration rate . Estimated GFR is not appl icable for dialysis patien ts Lactation Specialist ID - [id number] 00:50:33 Test Item Value Reference Range Interpretation Comments MAGNESIUM (BEAKER) (test code = 2.0 mg/dL 1.6-2.6 627) Lactation Specialist ID - ADMINCALCIUM, [id number] 00:09:09 Test Item Value Reference Range Interpretation Comments CALCIUM IONIZED (BEAKER) (test 1.26 mmol/L 1.12-1.27 code = 698) PH, BLOOD (BEAKER) (test code = 7.41 1810) [id number] 21:42:55 Test Item Value Reference Range Interpretation Comments SODIUM (BEAKER) (test code = 381) 138 meq/L 136-145 Lactation Specialist ID - [id number] 21:42:50 Test Item Value Reference Range Interpretation Comments PHOSPHORUS (BEAKER) (test code = 2.5 mg/dL 2.3-4.7 604) Lactation Specialist ID - [id number] 21:42:50 Test Item Value Reference Range Interpretation Comments POTASSIUM (BEAKER) (test code = 4.4 meq/L 3.5-5.1 379) Lactation Specialist ID - [id number] 21:42:49 Test Item Value Reference Range Interpretation Comments MAGNESIUM (BEAKER) (test code = 2.2 mg/dL 1.6-2.6 627) Lactation Specialist ID - ADMINPH, [id number] 21:28:12 Test Item Value Reference Range Interpretation Comments PH ARTERIAL (BEAKER) (test code = 383) 7.41 7.35-7.45 OXYGEN SATURATION, [id number] 09:32:45 Test Item Value Reference Range Interpretation Comments O2 SATURATION (MEASURED) (BEAKER) 57.3 % (test code = 1455) [id number] 09:21:00 Test Item Value Reference Range Interpretation Comments PHOSPHORUS (BEAKER) (test code = 3.3 mg/dL 2.3-4.7 604) Lactation Specialist ID - [id number] 09:20:59 Test Item Value Reference Range Interpretation Comments MAGNESIUM (BEAKER) (test code = 2.3 mg/dL 1.6-2.6 627) Lactation Specialist ID - ADMINPH, [id number] 09:05:58 Test Item Value Reference Range Interpretation Comments PH ARTERIAL (BEAKER) (test code = 383) 7.42 7.35-7.45 HEPATIC FUNCTION [id number] 08:20:27 Test Item Value Reference Range Interpretation [...] code = < U/L 6-55 L 347) Lactation Specialist ID - ADMINXR CHEST 1 VIEW PORTABLE / [id number] 06:35:30 [facility] VANDANA : 1955 Sex: FXR CHEST 1 VIEW [...] Signed By: Taya Phelps03/21/2023 06:37 CDTWorkstation Name: [id number] METABOLIC PANEL 2023-03-21 06:28:11 Test Item Value [...] not appl icable for dialysis patien ts Lactation Specialist ID - [id number] 02:33:05 Test Item Value Reference Range Interpretation Comments MAGNESIUM (BEAKER) (test code = 2.2 mg/dL 1.6-2.6 627) Lactation Specialist ID - CHELLY [id number] 02:33:05 Test Item Value Reference Range Interpretation Comments PHOSPHORUS (BEAKER) (test code = 3.2 mg/dL 2.3-4.7 604) Lactation Specialist ID - CHELLY BBASIC METABOLIC [id number] 02:33:04 Test Item Value Reference Range Interpretation [...] not appl icable for dialysis patien ts Lactation Specialist ID - CHELLY BCBC (HEMOGRAM ONLY)2023-03-21 02:12:38 [...] 0-0 (test code = 413) OXYGEN SATURATION, [id number] 02:11:39 Test Item Value Reference Range Interpretation Comments O2 SATURATION (MEASURED) (BEAKER) 74.2 % (test code = 1455) BLOOD GAS, [id number] 02:10:18 Test Item Value Reference Range Interpretation [...] (BEAKER) (test code = 1819) 28.0 CALCIUM, [id number] 02:10:18 Test Item Value Reference Range Interpretation Comments CALCIUM IONIZED (BEAKER) (test 1.28 mmol/L 1.12-1.27 H code = 698) PH, BLOOD (BEAKER) (test code = 7.39 1810) [id number] 00:08:06 Test Item Value Reference Range Interpretation Comments POTASSIUM (BEAKER) (test code = 4.2 meq/L 3.5-5.1 379) Lactation Specialist ID - [id number] 19:57:56 Test Item Value Reference Range Interpretation Comments SODIUM (BEAKER) (test code = 381) 138 meq/L 136-145 Lactation Specialist ID - CHELLY [id number] 19:57:55 Test Item Value Reference Range Interpretation Comments POTASSIUM (BEAKER) (test code = 4.5 meq/L 3.5-5.1 379) Lactation Specialist ID - CHELLY [id number] 19:57:54 Test Item Value Reference Range Interpretation Comments MAGNESIUM (BEAKER) (test code = 2.1 mg/dL 1.6-2.6 627) Lactation Specialist ID - CHELLY [id number] 19:57:54 Test Item Value Reference Range Interpretation Comments PHOSPHORUS (BEAKER) (test code = 3.4 mg/dL 2.3-4.7 604) Lactation Specialist ID - CHELLY BPH, [id number] 19:39:29 Test Item Value Reference Range Interpretation Comments PH ARTERIAL (BEAKER) (test code = 383) 7.37 7.35-7.45 SARS-COV2/RT-PCR ([facility])2023-03-20 16:25:53 Test Item Value Reference Range Interpretation Comments SARS-COV2/RT-PCR Negative Negative The SARS-Co V-2 target (test code = nucleic acids a re not [id number]) detected in thi s specimen. Negative result [...] revoked sooner. Fact Sheet for Healthcare Providers: https://www.[employer].co m/Documents/Xpert%20Xpress%20SARS%20CoV-2/Fact%20Sheets/018-3802%13EUUS-FMS-8%20 HEALTHCARE%20PROVIDERS%20FACT%20SHEET.pdf Fact Sheet for Healthcare Patients: https://www.[employer].Fuzz/Documents/Xpert%20Xp ress%20SARS%20CoV-2/Fact%20Sheets/3023801%50RNZU-ZEW-6%20PATIENT%20FACT%20SHEET .[id number] 16:13:52 Test Item Value Reference Range Interpretation Comments POTASSIUM (BEAKER) (test code = 4.4 meq/L 3.5-5.1 379) Lactation Specialist ID - CHELLY [id number] 16:13:51 Test Item Value Reference Range Interpretation Comments PHOSPHORUS (BEAKER) (test code = 2.4 mg/dL 2.3-4.7 604) Lactation Specialist ID - CHELLY [id number] 16:13:50 Test Item Value Reference Range Interpretation Comments MAGNESIUM (BEAKER) (test code = 2.1 mg/dL 1.6-2.6 627) Lactation Specialist ID - CHELLY BBLOOD GAS, [id number] 15:59:47 Test Item Value Reference Range Interpretation [...] = 1819) 80.0 HGB/HCT (H&H) - STAT [id number] 15:59:47 Test Item Value Reference Range Interpretation Comments HEMOGLOBIN (BEAKER) (test code = 9.3 GM/DL 12.0-15.0 L 410) HEMATOCRIT (BEAKER) (test code = 27.0 % 36.0-45.0 L 411) SODIUM NA-STAT [id number] 15:58:29 Test Item Value Reference Range Interpretation Comments SODIUM (BEAKER) (test code = 381) 136 meq/L 136-145 POTASSIUM-STAT [id number] 15:58:29 Test Item Value Reference Range Interpretation Comments POTASSIUM (BEAKER) (test code = 4.2 meq/L 3.6-5.5 379) GLUCOSE-STAT [id number] 15:58:28 Test Item Value Reference Range Interpretation Comments GLUCOSE RANDOM (BEAKER) (test code = 98 mg/dL 70-110 652) OXYGEN SATURATION, [id number] 15:58:09 Test Item Value Reference Range Interpretation Comments O2 SATURATION (MEASURED) (BEAKER) 63.6 % (test code = 1455) [id number] 12:33:52 Test Item Value Reference Range Interpretation Comments POTASSIUM (BEAKER) (test code = 4.4 meq/L 3.5-5.1 379) Lactation Specialist ID - CHELLY [id number] 12:33:51 Test Item Value Reference Range Interpretation Comments PHOSPHORUS (BEAKER) (test code = 3.0 mg/dL 2.3-4.7 604) Lactation Specialist ID - CHELLY [id number] 12:33:50 Test Item Value Reference Range Interpretation Comments MAGNESIUM (BEAKER) (test code = 2.2 mg/dL 1.6-2.6 627) Lactation Specialist ID - CHELLY BCALCIUM, [id number] 12:07:26 Test Item Value Reference Range Interpretation Comments CALCIUM IONIZED (BEAKER) (test 1.31 mmol/L 1.12-1.27 H code = 698) PH, BLOOD (BEAKER) (test code = 7.37 1810) HGB/HCT (H&H) - STAT [id number] 12:06:50 Test Item Value Reference Range Interpretation Comments HEMOGLOBIN (BEAKER) (test code = 8.5 GM/DL 12.0-15.0 L 410) HEMATOCRIT (BEAKER) (test code = 25.0 % 36.0-45.0 L 411) BLOOD GAS, [id number] 12:06:49 Test Item Value Reference Range Interpretation [...] (BEAKER) (test code = 1819) 44.0 POTASSIUM-STAT [id number] 12:04:41 Test Item Value Reference Range Interpretation Comments POTASSIUM (BEAKER) (test code = 4.2 meq/L 3.6-5.5 379) GLUCOSE-STAT [id number] 12:04:39 Test Item Value Reference Range Interpretation Comments GLUCOSE RANDOM (BEAKER) (test code = 97 mg/dL 70-110 652) SODIUM NA-STAT [id number] 12:04:39 Test Item Value Reference Range Interpretation Comments SODIUM (BEAKER) (test code = 381) 137 meq/L 136-145 MISCELLANEOUS LAB [id number] 07:32:06 Test Item Value Reference Range Interpretation Comments SCAN RESULT (test code = See scanned report. [id number]) XR CHEST 1 VIEW PORTABLE / [id number] 07:03:43 [facility] : 1955 Sex: FXR CHEST 1 VIEW PORTABLE / BEDSIDEINDICATION: s/p ACB surgeryCOMPARISON: Prior day's examFINDINGS: Portable frontal view of the chest. IMPRESSION:Support Lines: Central catheter tip overlies the right atrium. [place] overlies the pulmonary outflow tract. Bilateral chest tubes. Lungs and pleura: Unchanged diffuse interstitial thickening,representing singly or in combination, interstitial edema and/orpneumonitis. No significant pneumothorax.Heart and mediastinum: Stable contours. Stable surgical changes.Additional findings: None. Electronically Signed By: Taya Phelps03/20/2023 07:05 CDTWorkstation Name: [id number] 06:45:00 Test Item Value Reference Range Interpretation Comments MAGNESIUM (BEAKER) (test code = 2.3 mg/dL 1.6-2.6 627) Lactation Specialist ID - JAKE [id number] 06:45:00 Test Item Value Reference Range Interpretation Comments PHOSPHORUS (BEAKER) (test code = 3.4 mg/dL 2.3-4.7 604) Lactation Specialist ID - JAKE WBASIC METABOLIC [id number] 06:44:59 Test Item Value Reference Range Interpretation [...] not appl icable for dialysis patien ts Lactation Specialist ID - JAKE WHGB/HCT (H&H) - STAT [id number] 06:08:57 Test Item Value Reference Range Interpretation Comments HEMOGLOBIN (BEAKER) (test code = 8.8 GM/DL 12.0-15.0 L 410) HEMATOCRIT (BEAKER) (test code = 26.0 % 36.0-45.0 L 411) BLOOD GAS, [id number] 06:08:56 Test Item Value Reference Range Interpretation [...] (BEAKER) (test code = 1819) 36.0 POTASSIUM-STAT [id number] 06:06:56 Test Item Value Reference Range Interpretation Comments POTASSIUM (BEAKER) (test code = 4.3 meq/L 3.6-5.5 379) GLUCOSE-STAT [id number] 06:06:48 Test Item Value Reference Range Interpretation Comments GLUCOSE RANDOM (BEAKER) (test code = 99 mg/dL 70-110 652) SODIUM NA-STAT [id number] 06:06:48 Test Item Value Reference Range Interpretation Comments SODIUM (BEAKER) (test code = 381) 136 meq/L 136-145 PH, [id number] 06:06:47 Test Item Value Reference Range Interpretation Comments PH ARTERIAL (BEAKER) (test code = 383) 7.37 7.35-7.45 [id number] 02:49:09 Test Item Value Reference Range Interpretation Comments PHOSPHORUS (BEAKER) (test code = 3.2 mg/dL 2.3-4.7 604) Lactation Specialist ID - JAKE WBASIC METABOLIC [id number] 02:49:08 Test Item Value Reference Range Interpretation [...] not appl icable for dialysis patien ts Lactation Specialist ID Gali JOSEPH [id number] 02:49:08 Test Item Value Reference Range Interpretation Comments MAGNESIUM (BEAKER) (test code = 2.1 mg/dL 1.6-2.6 627) Lactation Specialist ID Gali JOSEPH [id number] 02:38:04 Test Item Value Reference Range Interpretation Comments PARTIAL THROMBOPLASTIN TIME 43.4 seconds 22.5-36.0 H (BEAKER) (test code = 760) OXYGEN SATURATION, [id number] 02:33:22 Test Item Value Reference Range Interpretation Comments O2 SATURATION (MEASURED) (BEAKER) 69.3 % (test code = 1455) BLOOD GAS, [id number] 02:25:08 Test Item Value Reference Range Interpretation [...] (BEAKER) (test code = 1819) 36.0 CALCIUM, [id number] 02:24:43 Test Item Value Reference Range Interpretation [...] /100 WBC 0-0 (test code = 413) [id number] 00:49:47 Test Item Value Reference Range Interpretation Comments PARTIAL THROMBOPLASTIN 123.6 seconds 22.5-36.0 H Rele ase result TIME (BEAKER) (test per B#45 5630 code = 760) [id number] 00:27:11 Test Item Value Reference Range Interpretation Comments POTASSIUM (BEAKER) (test code = 4.4 meq/L 3.5-5.1 379) Lactation Specialist ID - [id number] 00:15:30 Test Item Value Reference Range Interpretation Comments PARTIAL THROMBOPLASTIN TIME 39.2 seconds 22.5-36.0 H (BEAKER) (test code = 760) HGB/HCT (H&H) - STAT [id number] 23:57:54 Test Item Value Reference Range Interpretation Comments HEMOGLOBIN (BEAKER) (test code = 8.9 GM/DL 12.0-15.0 L 410) HEMATOCRIT (BEAKER) (test code = 26.0 % 36.0-45.0 L 411) BLOOD GAS, [id number] 23:57:53 Test Item Value Reference Range Interpretation [...] (BEAKER) (test code = 1819) 36.0 POTASSIUM-STAT [id number] 23:57:11 Test Item Value Reference Range Interpretation Comments POTASSIUM (BEAKER) (test code = 4.3 meq/L 3.6-5.5 379) SODIUM NA-STAT [id number] 23:57:06 Test Item Value Reference Range Interpretation Comments SODIUM (BEAKER) (test code = 381) 137 meq/L 136-145 GLUCOSE-STAT [id number] 23:57:05 Test Item Value Reference Range Interpretation Comments GLUCOSE RANDOM (BEAKER) (test code = 77 mg/dL 70-110 652) [id number] 19:45:56 Test Item Value Reference Range Interpretation Comments SODIUM (BEAKER) (test code = 381) 137 meq/L 136-145 Lactation Specialist ID - EMLACTIC ACID, [id number] 17:37:17 Test Item Value Reference Range Interpretation Comments LACTATE BLOOD ARTERIAL (2) 0.6 mmol/L 0.5-2.0 (BEAKER) (test code = 2874) Lactation Specialist ID - EMHGB/HCT (H&H) - STAT [id number] 16:39:49 Test Item Value Reference Range Interpretation Comments HEMOGLOBIN (BEAKER) (test code = 7.2 GM/DL 12.0-15.0 L 410) HEMATOCRIT (BEAKER) (test code = 21.0 % 36.0-45.0 L 411) BLOOD GAS, [id number] 16:39:48 Test Item Value Reference Range Interpretation [...] (test code = 1819) 24.0 OXYGEN SATURATION, [id number] 16:39:04 Test Item Value Reference Range Interpretation Comments O2 SATURATION (MEASURED) (BEAKER) 72.4 % (test code = 1455) CALCIUM, [id number] 16:36:32 Test Item Value Reference Range Interpretation Comments CALCIUM IONIZED (BEAKER) (test 1.26 mmol/L 1.12-1.27 code = 698) PH, BLOOD (BEAKER) (test code = 7.30 1810) POTASSIUM-STAT [id number] 16:35:53 Test Item Value Reference Range Interpretation Comments POTASSIUM (BEAKER) (test code = 4.6 meq/L 3.6-5.5 379) SODIUM NA-STAT [id number] 16:35:52 Test Item Value Reference Range Interpretation Comments SODIUM (BEAKER) (test code = 381) 135 meq/L 136-145 L GLUCOSE-STAT [id number] 16:35:47 Test Item Value Reference Range Interpretation Comments GLUCOSE RANDOM (BEAKER) (test code 124 mg/dL 70-110 H = 652) [id number] 16:10:37 Test Item Value Reference Range Interpretation Comments POTASSIUM (BEAKER) (test code = 4.7 meq/L 3.5-5.1 379) Lactation Specialist ID - [id number] 16:10:36 Test Item Value Reference Range Interpretation Comments PHOSPHORUS (BEAKER) (test code = 4.3 mg/dL 2.3-4.7 604) Lactation Specialist ID - [id number] 16:10:35 Test Item Value Reference Range Interpretation Comments MAGNESIUM (BEAKER) (test code = 2.2 mg/dL 1.6-2.6 627) Lactation Specialist ID - [id number] 16:01:22 Test Item Value Reference Range Interpretation Comments PARTIAL THROMBOPLASTIN TIME 39.8 seconds 22.5-36.0 H (BEAKER) (test code = 760) [id number] 12:47:31 Test Item Value Reference Range Interpretation Comments PHOSPHORUS (BEAKER) (test code = 4.4 mg/dL 2.3-4.7 604) Lactation Specialist ID - [id number] 12:47:31 Test Item Value Reference Range Interpretation Comments POTASSIUM (BEAKER) (test code = 4.6 meq/L 3.5-5.1 379) Lactation Specialist ID - [id number] 12:47:30 Test Item Value Reference Range Interpretation Comments MAGNESIUM (BEAKER) (test code = 2.2 mg/dL 1.6-2.6 627) Lactation Specialist ID - ADMINHEPARIN [id number] 12:42:26 Test Item Value Reference Range Interpretation Comments HEPARIN ANTIBODY (BEAKER) (test code Negative Negative = 646) HEPARIN ANTIBODY OD (BEAKER) (test 0.112 <0.400 code = 8109) 4T TOTAL SCORE (BEAKER) (test code = 4 4216) SODIUM NA-STAT [id number] 12:37:39 Test Item Value Reference Range Interpretation Comments SODIUM (BEAKER) (test code = 381) 134 meq/L 136-145 L HGB/HCT (H&H) - STAT [id number] 12:37:01 Test Item Value Reference Range Interpretation Comments HEMOGLOBIN (BEAKER) (test code = 7.7 GM/DL 12.0-15.0 L 410) HEMATOCRIT (BEAKER) (test code = 23.0 % 36.0-45.0 L 411) BLOOD GAS, [id number] 12:36:33 Test Item Value Reference Range Interpretation [...] (BEAKER) (test code = 1819) 21.0 CALCIUM, [id number] 12:36:15 Test Item Value Reference Range Interpretation Comments CALCIUM IONIZED (BEAKER) (test 1.21 mmol/L 1.12-1.27 code = 698) PH, BLOOD (BEAKER) (test code = 7.37 1810) GLUCOSE-STAT [id number] 12:34:08 Test Item Value Reference Range Interpretation Comments GLUCOSE RANDOM (BEAKER) (test code 115 mg/dL 70-110 H = 652) POTASSIUM-STAT [id number] 12:34:08 Test Item Value Reference Range Interpretation Comments POTASSIUM (BEAKER) (test code = 4.4 meq/L 3.6-5.5 379) OXYGEN SATURATION, [id number] 10:31:47 Test Item Value Reference Range Interpretation Comments O2 SATURATION (MEASURED) (BEAKER) 60.7 % (test code = 1455) MISCELLANEOUS LAB [id number] 09:22:57 Test Item Value Reference Range Interpretation Comments SCAN RESULT (test code = See scanned report. [id number]) HGB/HCT (H&H) - STAT [id number] 08:04:50 Test Item Value Reference Range Interpretation Comments HEMOGLOBIN (BEAKER) (test code = 7.7 GM/DL 12.0-15.0 L 410) HEMATOCRIT (BEAKER) (test code = 23.0 % 36.0-45.0 L 411) BLOOD GAS, [id number] 08:04:49 Test Item Value Reference Range Interpretation [...] 37.4 (test code = 1818) OXYGEN SATURATION, [id number] 08:04:43 Test Item Value Reference Range Interpretation Comments O2 SATURATION (MEASURED) (BEAKER) 45.4 % (test code = 1455) POTASSIUM-STAT [id number] 08:04:33 Test Item Value Reference Range Interpretation Comments POTASSIUM (BEAKER) (test code = 4.2 meq/L 3.6-5.5 379) SODIUM NA-STAT [id number] 08:04:27 Test Item Value Reference Range Interpretation Comments SODIUM (BEAKER) (test code = 381) 136 meq/L 136-145 GLUCOSE-STAT [id number] 08:04:26 Test Item Value Reference Range Interpretation Comments GLUCOSE RANDOM (BEAKER) (test code = 91 mg/dL 70-110 652) XR CHEST 1 VIEW PORTABLE / [id number] 07:48:28 [facility] MOTTA : 1955 Sex: FXR CHEST 1 VIEW PORTABLE / BEDSIDEINDICATION: s/p ACB surgeryCOMPARISON: Prior day's examFINDINGS: Portable frontal view of the chest. IMPRESSION:Support Lines: Central catheter tip overlies the right atrium. [place] overlies the pulmonary outflow tract. Bilateral chest tubes. Lungs and pleura: Unchanged diffuse interstitial thickening,representing singly or in combination, interstitial edema and/orpneumonitis. No significant pneumothorax.Heart and mediastinum: Stable contours. Stable surgical changes.Additional findings: None.Electronically Signed By: Taya Phelps03/19/2023 07:50 CDTWorkstation Na me: [id number]/HCT (H&H) - STAT [id number] 05:43:54 Test Item Value Reference Range Interpretation Comments HEMOGLOBIN (BEAKER) (test code = 7.5 GM/DL 12.0-15.0 L 410) HEMATOCRIT (BEAKER) (test code = 22.0 % 36.0-45.0 L 411) BLOOD GAS, [id number] 05:43:53 Test Item Value Reference Range Interpretation [...] (test code = 1819) 28.0 OXYGEN SATURATION, [id number] 05:42:29 Test Item Value Reference Range Interpretation Comments O2 SATURATION (MEASURED) (BEAKER) 46.3 % (test code = 1455) POTASSIUM-STAT [id number] 05:42:10 Test Item Value Reference Range Interpretation Comments POTASSIUM (BEAKER) (test code = 4.0 meq/L 3.6-5.5 379) GLUCOSE-STAT [id number] 05:42:09 Test Item Value Reference Range Interpretation Comments GLUCOSE RANDOM (BEAKER) (test code = 76 mg/dL 70-110 652) SODIUM NA-STAT [id number] 05:42:09 Test Item Value Reference Range Interpretation Comments SODIUM (BEAKER) (test code = 381) 135 meq/L 136-145 L PT/[id number] 03:00:43 Test Item Value Reference Range Interpretation [...] is 2.5-3.5 for patients with mechanical heart valves.[id number] 03:00:42 Test Item Value Reference Range Interpretation Comments MAGNESIUM (BEAKER) (test code = 2.1 mg/dL 1.6-2.6 627) Lactation Specialist ID - CHELLY [id number] 03:00:42 Test Item Value Reference Range Interpretation Comments PHOSPHORUS (BEAKER) (test code = 4.0 mg/dL 2.3-4.7 604) Lactation Specialist ID - CHELLY BBASIC METABOLIC [id number] 03:00:41 Test Item Value Reference Range Interpretation [...] not as accur ate as Creatinine Birdie lillina in predicting glom erular filtration rate . Estimated GFR is not appl icable for dialysis patien ts Lactation Specialist ID - CHELLY [id number] 03:00:23 Test Item Value Reference Range Interpretation Comments FIBRINOGEN LEVEL (BEAKER) (test 488 mg/dl 225-434 H code = 658) CALCIUM, [id number] 02:48:41 Test Item Value Reference Range Interpretation Comments CALCIUM IONIZED (BEAKER) (test 1.23 mmol/L 1.12-1.27 code = 698) PH, BLOOD (BEAKER) (test code = 7.38 1810) OXYGEN SATURATION, [id number] 02:48:20 Test Item Value Reference Range Interpretation Comments O2 SATURATION (MEASURED) (BEAKER) 61.4 % (test code = 1455) BLOOD GAS, [id number] 02:44:41 Test Item Value Reference Range Interpretation [...] /100 WBC 0-0 (test code = 413) [id number] 01:40:31 Test Item Value Reference Range Interpretation Comments POTASSIUM (BEAKER) (test code = 4.4 meq/L 3.5-5.1 379) Lactation Specialist ID - CHELLY [id number] 20:30:45 Test Item Value Reference Range Interpretation Comments POTASSIUM (BEAKER) (test code = 4.3 meq/L 3.5-5.1 379) Lactation Specialist ID - [id number] 20:30:44 Test Item Value Reference Range Interpretation Comments PHOSPHORUS (BEAKER) (test code = 2.5 mg/dL 2.3-4.7 604) Lactation Specialist ID - [id number] 20:30:43 Test Item Value Reference Range Interpretation Comments MAGNESIUM (BEAKER) (test code = 2.1 mg/dL 1.6-2.6 627) Lactation Specialist ID - [id number] 13:34:40 Test Item Value Reference Range Interpretation Comments PHOSPHORUS (BEAKER) (test code = 2.7 mg/dL 2.3-4.7 604) Lactation Specialist ID - CHELLY [id number] 13:34:39 Test Item Value Reference Range Interpretation Comments MAGNESIUM (BEAKER) (test code = 2.2 mg/dL 1.6-2.6 627) Lactation Specialist ID - CHELLY BBASIC METABOLIC [id number] 13:34:38 Test Item Value Reference Range Interpretation [...] not appl icable for dialysis patien ts Lactation Specialist ID - CHELLY BCBC W/PLT COUNT & AUTO [id number] 13:25:29 Test Item Value Reference Range Interpretation [...] (BEAKER) (test code = 2801) OXYGEN SATURATION, [id number] 13:13:17 Test Item Value Reference Range Interpretation Comments O2 SATURATION (MEASURED) (BEAKER) 57.8 % (test code = 1455) CALCIUM, [id number] 13:13:16 Test Item Value Reference Range Interpretation Comments CALCIUM IONIZED (BEAKER) (test 1.26 mmol/L 1.12-1.27 code = 698) PH, BLOOD (BEAKER) (test code = 7.45 1810) XR CHEST 1 VIEW PORTABLE / [id number] 07:46:20 [facility] 1955 Sex: FChestone view:HISTORY: s/p ACB surgeryComparison: Previous day's studySupport apparatus: Not significantly changed in position.Bibasilar atelectasis is again noted. Right perihilar subsegmentalatelectasis is now present. There is no pneumothorax or pleuraleffusion. Cardiac size is unchanged. Changes of median sternotomy areagain noted.Electronically Signed By: Collins Yeh03/18/2023 07:48 CDTWorkstation Name: [id number] 02:43:17 Test Item Value Reference Range Interpretation Comments MAGNESIUM (BEAKER) (test code = 2.4 mg/dL 1.6-2.6 627) Lactation Specialist ID - CHELLY [id number] 02:43:17 Test Item Value Reference Range Interpretation Comments PHOSPHORUS (BEAKER) (test code = 3.3 mg/dL 2.3-4.7 604) Lactation Specialist ID - CHELLY BBASIC METABOLIC [id number] 02:43:16 Test Item Value Reference Range Interpretation [...] not appl icable for dialysis patien ts Lactation Specialist ID - CHELLY BLACTIC ACID, [id number] 02:36:57 Test Item Value Reference Range Interpretation Comments LACTATE BLOOD ARTERIAL (2) 0.5 mmol/L 0.5-2.0 (BEAKER) (test code = 2874) Lactation Specialist ID - CHELLY BPT/[id number] 02:33:52 Test Item Value Reference Range Interpretation [...] 2.5-3.5 for patients with mechanical heart valves.PROTHROMBIN TIME/[id number] 02:32:54 Test Item Value Reference Range Interpretation Comments PROTIME (BEAKER) 16.2 seconds 11.9-14.2 H (test code = 759) INR (BEAKER) (test 1.39 See_Comment [Automat ed message] code = 370) The system [employer] h generated this result transmitted ref erence range: <=5.90. The reference range was not used to int erpret this result as normal/abnormal . RECOMMENDED COUMADIN/WARFARIN INR THERAPY RANGESSTANDARD DOSE: 2.0 - 3.0 Includes: PROPHYLAXIS for venous thrombosis, systemic embolization; TREATMENT for venous thrombosis and/or pulmonary embolus.HIGH RISK: Target INR is 2.5-3.5 for patients with mechanical heart valves.BLOOD GAS, [id number] 02:25:24 Test Item Value Reference Range Interpretation [...] (test code = 1819) 36.0 OXYGEN SATURATION, [id number] 02:25:12 Test Item Value Reference Range Interpretation [...] WBC 0-0 (test code = 413) CALCIUM, [id number] 02:23:14 Test Item Value Reference Range Interpretation Comments CALCIUM IONIZED (BEAKER) (test 1.23 mmol/L 1.12-1.27 code = 698) PH, BLOOD (BEAKER) (test code = 7.45 1810) [id number] 19:58:59 Test Item Value Reference Range Interpretation Comments POTASSIUM (BEAKER) (test code = 4.5 meq/L 3.5-5.1 379) Lactation Specialist ID - [id number] 19:58:58 Test Item Value Reference Range Interpretation Comments PHOSPHORUS (BEAKER) (test code = 2.4 mg/dL 2.3-4.7 604) Lactation Specialist ID - [id number] 19:58:57 Test Item Value Reference Range Interpretation Comments MAGNESIUM (BEAKER) (test code = 2.0 mg/dL 1.6-2.6 627) Lactation Specialist ID - EMCBC (HEMOGRAM ONLY)2023-03-17 19:47:18 Test [...] /100 WBC 0-0 (test code = 413) [id number] 18:20:50 Test Item Value Reference Range Interpretation Comments PARTIAL THROMBOPLASTIN TIME 41.8 seconds 22.5-36.0 H (BEAKER) (test code = 760) [id number] 18:20:11 Test Item Value Reference Range Interpretation Comments FIBRINOGEN LEVEL (BEAKER) (test 335 mg/dl 225-434 code = 658) PROTHROMBIN TIME/[id number] 18:19:48 Test Item Value Reference Range Interpretation Comments PROTIME (BEAKER) 15.7 seconds 11.9-14.2 H (test code = 759) INR (BEAKER) (test 1.33 See_Comment [Automat ed message] code = 370) The system [employer] generated this result transmitted ref erence range: [...] /100 WBC 0-0 (test code = 413) [id number] 12:38:47 Test Item Value Reference Range Interpretation Comments MAGNESIUM (BEAKER) (test code = 2.1 mg/dL 1.6-2.6 627) Lactation Specialist ID - [id number] 12:38:47 Test Item Value Reference Range Interpretation Comments PHOSPHORUS (BEAKER) (test code = 2.6 mg/dL 2.3-4.7 604) Lactation Specialist ID - EMBASIC METABOLIC [id number] 12:38:46 Test Item Value Reference Range Interpretation [...] eGF R is based on the CKD-EPI 1 equation that d oes not use a race coefficientEsti mated GFR is not as accur ate as Creatinine Birdie lillian in predicting glom erular filtration rate . Estimated GFR is not appl icable for dialysis patien ts Lactation Specialist ID - EMLACTIC ACID, [id number] 12:35:31 Test Item Value Reference Range Interpretation Comments LACTATE BLOOD ARTERIAL (2) 0.5 mmol/L 0.5-2.0 (BEAKER) (test code = 2874) Lactation Specialist ID - EMCBC (HEMOGRAM ONLY)2023-03-17 12:18:06 Test [...] 0-0 (test code = 413) OXYGEN SATURATION, [id number] 12:15:27 Test Item Value Reference Range Interpretation Comments O2 SATURATION (MEASURED) (BEAKER) 68.3 % (test code = 1455) CALCIUM, [id number] 12:14:45 Test Item Value Reference Range Interpretation Comments CALCIUM IONIZED (BEAKER) (test 1.25 mmol/L 1.12-1.27 code = 698) PH, BLOOD (BEAKER) (test code = 7.46 1810) HGB/HCT (H&H) - STAT [id number] 11:01:30 Test Item Value Reference Range Interpretation Comments HEMOGLOBIN (BEAKER) (test code = 8.1 GM/DL 12.0-15.0 L 410) HEMATOCRIT (BEAKER) (test code = 24.0 % 36.0-45.0 L 411) SODIUM NA-STAT [id number] 11:01:29 Test Item Value Reference Range Interpretation Comments SODIUM (BEAKER) (test code = 381) 134 meq/L 136-145 L BLOOD GAS, [id number] 11:01:28 Test Item Value Reference Range Interpretation [...] (BEAKER) (test code = 1819) 36.0 GLUCOSE-STAT [id number] 10:59:59 Test Item Value Reference Range Interpretation Comments GLUCOSE RANDOM (BEAKER) (test code 110 mg/dL 70-110 = 652) POTASSIUM-STAT [id number] 10:59:59 Test Item Value Reference Range Interpretation Comments POTASSIUM (BEAKER) (test code = 4.2 meq/L 3.6-5.5 379) [id number] 08:19:59 Test Item Value Reference Range Interpretation Comments PHOSPHORUS (BEAKER) (test code = 2.7 mg/dL 2.3-4.7 604) Lactation Specialist ID - [id number] 08:19:59 Test Item Value Reference Range Interpretation Comments POTASSIUM (BEAKER) (test code = 4.5 meq/L 3.5-5.1 379) Lactation Specialist ID - [id number] 08:19:58 Test Item Value Reference Range Interpretation Comments MAGNESIUM (BEAKER) (test code = 2.2 mg/dL 1.6-2.6 627) Lactation Specialist ID - EMXR CHEST 1 VIEW PORTABLE / [id number] 08:13:35 [facility] MOT[facility] VANDANA : 1955 Sex: FChestone view:HISTORY: s/p ACB surgeryComparison: Previous day's studySupport apparatus: The endotrachealand nasogastric tubes have beenremoved in the interval. The remaining support apparatus is notsignificantly changed in position.Bibasilar subsegmental atelectasis is present. There is no pneumothoraxorpleural effusion. Cardiac size is unchanged. Sternotomy changes areagain noted.Electronically SignedBy: Collins Yeh03/17/2023 08:15 CDTWorkstation Name: [id number] GLUCOSE [id number] 08:08:50 Test Item Value Reference Range Interpretation Comments POC-GLUCOSE METER 109 mg/dL 70-110 : TESTED A T [facility] 6720 (BEAKER) (test code = S[place], 1538) [address]: Lactation Specialist/Techni patricia ID = [id number] for Marcia Torres CBC W/PLT COUNT & AUTO [id number] 06:55:18 Test Item Value Reference Range Interpretation [...] PERCENT (BEAKER) (test code = 2801) POCT-GLUCOSE [id number] 06:09:26 Test Item Value Reference Range Interpretation Comments POC-GLUCOSE METER 113 mg/dL 70-110 H : TESTED A T [facility] 6720 (BEAKER) (test code = [place], 1538) [address]: Lactation Specialist/Techni patricia ID = [id number] for Sir Sagar Cook HEPATIC FUNCTION [id number] 04:09:05 Test Item Value Reference Range Interpretation [...] code = < U/L 6-55 L 347) Lactation Specialist ID - FSEBASIC METABOLIC [id number] 03:32:32 Test Item Value Reference Range Interpretation [...] not appl icable for dialysis patien ts Lactation Specialist ID - [id number] 03:26:13 Test Item Value Reference Range Interpretation Comments MAGNESIUM (BEAKER) (test code = 2.0 mg/dL 1.6-2.6 627) Lactation Specialist ID - [id number] 03:26:13 Test Item Value Reference Range Interpretation Comments PHOSPHORUS (BEAKER) (test code = 2.8 mg/dL 2.3-4.7 604) Lactation Specialist ID - FSECBC (HEMOGRAM ONLY)2023-03-17 02:51:49 Test [...] 0-0 (test code = 413) BLOOD GAS, [id number] 02:35:12 Test Item Value Reference Range Interpretation [...] (BEAKER) (test code = 1819) 36.0 CALCIUM, [id number] 02:34:46 Test Item Value Reference Range Interpretation Comments CALCIUM IONIZED (BEAKER) (test 1.23 mmol/L 1.12-1.27 code = 698) PH, BLOOD (BEAKER) (test code = 7.44 1810) OXYGEN SATURATION, [id number] 02:34:23 Test Item Value Reference Range Interpretation Comments O2 SATURATION (MEASURED) (BEAKER) 64.7 % (test code = 1455) HGB/HCT (H&H) - STAT [id number] 20:54:18 Test Item Value Reference Range Interpretation Comments HEMOGLOBIN (BEAKER) (test code = 8.3 GM/DL 12.0-15.0 L 410) HEMATOCRIT (BEAKER) (test code = 24.0 % 36.0-45.0 L 411) CALCIUM, [id number] 20:47:51 Test Item Value Reference Range Interpretation Comments CALCIUM IONIZED (BEAKER) (test 1.22 mmol/L 1.12-1.27 code = 698) PH, BLOOD (BEAKER) (test code = 7.43 1810) POTASSIUM-STAT [id number] 20:46:53 Test Item Value Reference Range Interpretation Comments POTASSIUM (BEAKER) (test code = 4.2 meq/L 3.6-5.5 379) GLUCOSE-STAT [id number] 20:46:52 Test Item Value Reference Range Interpretation Comments GLUCOSE RANDOM (BEAKER) (test code 125 mg/dL 70-110 H = 652) SODIUM NA-STAT [id number] 20:46:52 Test Item Value Reference Range Interpretation Comments SODIUM (BEAKER) (test code = 381) 136 meq/L 136-145 BLOOD GAS, [id number] 20:46:51 Test Item Value Reference Range Interpretation [...] = 1819) 36.0 HGB/HCT (H&H) - STAT [id number] 18:49:42 Test Item Value Reference Range Interpretation Comments HEMOGLOBIN (BEAKER) (test code = 8.5 GM/DL 12.0-15.0 L 410) HEMATOCRIT (BEAKER) (test code = 25.0 % 36.0-45.0 L 411) BLOOD GAS, [id number] 18:49:41 Test Item Value Reference Range Interpretation [...] (BEAKER) (test code = 1819) 21.0 POTASSIUM-STAT [id number] 18:49:20 Test Item Value Reference Range Interpretation Comments POTASSIUM (BEAKER) (test code = 4.4 meq/L 3.6-5.5 379) SODIUM NA-STAT [id number] 18:49:19 Test Item Value Reference Range Interpretation Comments SODIUM (BEAKER) (test code = 381) 136 meq/L 136-145 GLUCOSE-STAT [id number] 18:49:18 Test Item Value Reference Range Interpretation Comments GLUCOSE RANDOM (BEAKER) (test code 130 mg/dL 70-110 H = 652) COMPREHENSIVE METABOLIC [id number] 15:58:01 Test Item Value Reference Range Interpretation [...] not appl icable for dialysis patien ts Lactation Specialist ID - FSELACTIC ACID, [id number] 15:49:47 Test Item Value Reference Range Interpretation Comments LACTATE BLOOD ARTERIAL (2) 0.7 mmol/L 0.5-2.0 (BEAKER) (test code = 2874) Lactation Specialist ID - FSEHGB/HCT (H&H) - STAT [id number] 15:40:19 Test Item Value Reference Range Interpretation Comments HEMOGLOBIN (BEAKER) (test code = 8.6 GM/DL 12.0-15.0 L 410) HEMATOCRIT (BEAKER) (test code = 25.0 % 36.0-45.0 L 411) BLOOD GAS, [id number] 15:40:18 Test Item Value Reference Range Interpretation [...] (BEAKER) (test code = 1819) 21.0 POTASSIUM-STAT [id number] 15:39:50 Test Item Value Reference Range Interpretation Comments POTASSIUM (BEAKER) (test code = 4.2 meq/L 3.6-5.5 379) GLUCOSE-STAT [id number] 15:39:49 Test Item Value Reference Range Interpretation Comments GLUCOSE RANDOM (BEAKER) (test code 119 mg/dL 70-110 H = 652) SODIUM NA-STAT [id number] 15:39:49 Test Item Value Reference Range Interpretation Comments SODIUM (BEAKER) (test code = 381) 135 meq/L 136-145 L CBC W/PLT COUNT & AUTO [id number] 15:34:40 Test Item Value Reference Range Interpretation [...] (BEAKER) (test code = 2801) OXYGEN SATURATION, [id number] 15:26:26 Test Item Value Reference Range Interpretation Comments O2 SATURATION (MEASURED) (BEAKER) 75.9 % (test code = 1455) XR CHEST 1 VIEW PORTABLE / [id number] 15:25:25 [facility] : 1955 Sex: FTECHNIQUE: [...] Signed By: Adrián Alarcon03/16/2023 15:27 CDTWorkstation Name: [id number] 12:17:21 Test Item Value Reference Range Interpretation Comments HEMOGLOBIN A1C 5.7 % See_Comment H [Automated m essage] ELECTROPHORESIS (BEAKER) The system which (test code = 3811) generated this result transmitted ref erence range: <=5.6%. The reference range was not used to int erpret this result as normal/abnormal . "The A1c is measured using a [facility]-certified method. HbA1c value equal to or greater than 6.5% as thediagnosis cutoff for diabetes. An HbA1c value of 5.7- 6.4% indicates increased risk for diabetes (prediabetes)."Lactation Specialist ID - ADMOperator ID - YEUMOEYMKUTZO7909-04-13 11:28:22 Test Item Value Reference Range Interpretation Comments FIBRINOGEN LEVEL (BEAKER) (test 271 mg/dl 225-434 code = 658) [id number] 11:27:57 Test Item Value Reference Range Interpretation Comments PARTIAL THROMBOPLASTIN TIME 37.0 seconds 22.5-36.0 H (BEAKER) (test code = 760) PROTHROMBIN TIME/[id number] 11:27:20 Test Item Value Reference Range Interpretation Comments PROTIME (BEAKER) 15.7 seconds 11.9-14.2 H (test code = 759) INR (BEAKER) (test 1.28 See_Comment [Automat ed message] code = 370) The system [employer] h generated this result transmitted ref erence range: <=5.90. The reference range was not used to int erpret this result as normal/abnormal . RECOMMENDED COUMADIN/WARFARIN INR THERAPY RANGESSTANDARD DOSE: 2.0 - 3.0 Includes: PROPHYLAXIS for venous thrombosis, systemic embolization; TREATMENT for venous thrombosis and/or pulmonary embolus.HIGH RISK: Target INR is 2.5-3.5 for patients with mechanical heart valves.BASIC METABOLIC [id number] 11:11:56 Test Item Value Reference Range Interpretation [...] not appl icable for dialysis patien ts Lactation Specialist ID - [id number] 11:08:38 Test Item Value Reference Range Interpretation Comments PHOSPHORUS (BEAKER) (test code = 3.0 mg/dL 2.3-4.7 604) Lactation Specialist ID - [id number] 11:08:37 Test Item Value Reference Range Interpretation Comments MAGNESIUM (BEAKER) (test code = 2.2 mg/dL 1.6-2.6 627) Lactation Specialist ID - EMLACTIC ACID, [id number] 11:02:36 Test Item Value Reference Range Interpretation Comments LACTATE BLOOD ARTERIAL (2) 0.7 mmol/L 0.5-2.0 (BEAKER) (test code = 2874) Lactation Specialist ID - EMCBC W/PLT COUNT & AUTO [id number] 10:50:44 Test Item Value Reference Range Interpretation [...] code = 2801) HGB/HCT (H&H) - STAT [id number] 10:45:54 Test Item Value Reference Range Interpretation Comments HEMOGLOBIN (BEAKER) (test code = 8.9 GM/DL 12.0-15.0 L 410) HEMATOCRIT (BEAKER) (test code = 26.0 % 36.0-45.0 L 411) BLOOD GAS, [id number] 10:45:53 Test Item Value Reference Range Interpretation [...] (BEAKER) (test code = 1819) 21.0 POTASSIUM-STAT [id number] 10:45:32 Test Item Value Reference Range Interpretation Comments POTASSIUM (BEAKER) (test code = 4.3 meq/L 3.6-5.5 379) GLUCOSE-STAT [id number] 10:45:31 Test Item Value Reference Range Interpretation Comments GLUCOSE RANDOM (BEAKER) (test code 123 mg/dL 70-110 H = 652) SODIUM NA-STAT [id number] 10:45:31 Test Item Value Reference Range Interpretation Comments SODIUM (BEAKER) (test code = 381) 137 meq/L 136-145 POCT-GLUCOSE [id number] 07:55:18 Test Item Value Reference Range Interpretation Comments POC-GLUCOSE METER 127 mg/dL 70-110 H : TESTED A T [facility] 6720 (BEAKER) (test code = SARMAD Barreto [facility], 1538) [address]: Lactation Specialist/Techni patricia ID = [id number] for ADRIÁNGaliNING ZACK [id number] 06:33:18 Test Item Value Reference Range Interpretation Comments ACTIVATED CLOTTING TIME 113 sec : 74 -137 seconds, (BEAKER) (test code = Baseli ne: TESTED AT 441) [facility] [address] [facility], [address]: Lactation Specialist/Techni patricia ID = [id number] for ROSA ESPITIA WILMERKev [id number] 06:33:18 Test Item Value Reference Range Interpretation Comments ACTIVATED CLOTTING TIME 420 sec : 74 -137 seconds, (BEAKER) (test code = Baseli ne: TESTED AT 441) [address], [address]: Lactation Specialist/Techni patricia ID = [id number] for NG NGOZI, DUNG [id number] 06:33:17 Test Item Value Reference Range Interpretation Comments ACTIVATED CLOTTING TIME 408 sec : 74 -137 seconds, (BEAKER) (test code = Baseli ne: TESTED AT 441) [address], [address]: Lactation Specialist/Techni patricia ID = [id number] for NG NGOZI, DUNG [id number] 06:32:50 Test Item Value Reference Range Interpretation Comments ACTIVATED CLOTTING TIME 498 sec : 74 -137 seconds, (BEAKER) (test code = Baseli ne: TESTED AT 441) [address], [address]: Lactation Specialist/Techni patricia ID = [id number] for NG NGOZI, DUNG [id number] 06:32:50 Test Item Value Reference Range Interpretation Comments ACTIVATED CLOTTING TIME 612 sec : 74 -137 seconds, (BEAKER) (test code = Baseli ne: TESTED AT 441) [address], [address]: Lactation Specialist/Techni patricia ID = [id number] for NG NGOZI, DUNG [id number] 06:32:49 Test Item Value Reference Range Interpretation Comments ACTIVATED CLOTTING TIME 426 sec : 74 -137 seconds, (BEAKER) (test code = Baseli ne: TESTED AT 441) [address], [address]: Lactation Specialist/Techni patricia ID = [id number] for NG NGOZI, DUNG [id number] 05:04:24 Test Item Value Reference Range Interpretation Comments FIBRINOGEN LEVEL (BEAKER) (test 320 mg/dl 225-434 code = 658) HEPATIC FUNCTION [id number] 03:43:40 Test Item Value Reference Range Interpretation [...] code = < U/L 6-55 L 347) Lactation Specialist ID - ADMINOXYGEN SATURATION, [id number] 03:20:18 Test Item Value Reference Range Interpretation Comments O2 SATURATION (MEASURED) (BEAKER) 59.3 % (test code = 1455) COMPREHENSIVE METABOLIC [id number] 03:19:45 Test Item Value Reference Range Interpretation [...] not appl icable for dialysis patien ts Lactation Specialist ID - EMBLOOD GAS, [id number] 03:16:01 Test Item Value Reference Range Interpretation [...] (BEAKER) (test code = 1819) 40.0 CALCIUM, [id number] 03:14:59 Test Item Value Reference Range Interpretation Comments CALCIUM IONIZED (BEAKER) (test 1.24 mmol/L 1.12-1.27 code = 698) PH, BLOOD (BEAKER) (test code = 7.44 1810) GLUCOSE-STAT [id number] 03:14:38 Test Item Value Reference Range Interpretation Comments GLUCOSE RANDOM (BEAKER) (test code 105 mg/dL 70-110 = 652) [id number] 03:11:41 Test Item Value Reference Range Interpretation Comments MAGNESIUM (BEAKER) (test code = 2.4 mg/dL 1.6-2.6 627) Lactation Specialist ID - EMLIPID [id number] 03:11:41 Test Item Value Reference Range Interpretation [...] Borderline 130-159 High 160-189 Very High >=190 Lactation Specialist ID - [id number] 02:56:31 Test Item Value Reference Range Interpretation Comments PARTIAL THROMBOPLASTIN TIME 32.4 seconds 22.5-36.0 (BEAKER) (test code = 760) PROTHROMBIN [id number] 02:55:56 Test Item Value Reference Range Interpretation Comments PROTIME (BEAKER) 16.3 seconds 11.9-14.2 H (test code = 759) INR (BEAKER) (test 1.35 See_Comment [Automat ed message] code = 370) The system [employer] generated this result transmitted ref erence range: <=5.90. The reference range was not used to int erpret this result as normal/abnormal . RECOMMENDED COUMADIN/WARFARIN INR THERAPY RANGESSTANDARD DOSE: 2.0 - 3.0 Includes: PROPHYLAXIS for venous thrombosis, systemic embolization; TREATMENT for venous thrombosis and/or pulmonary embolus.HIGH RISK: Target INR is 2.5-3.5 for patients with mechanical heart valves.LACTIC ACID, [id number] 02:53:08 Test Item Value Reference Range Interpretation Comments LACTATE BLOOD ARTERIAL (2) 0.8 mmol/L 0.5-2.0 (BEAKER) (test code = 2874) Lactation Specialist ID - ADMINCBC W/PLT COUNT & AUTO [id number] 02:46:37 Test Item Value Reference Range Interpretation [...] 0.00-1.00 PERCENT (BEAKER) (test code = 2801) [id number] 01:16:36 Test Item Value Reference Range Interpretation Comments POTASSIUM (BEAKER) (test code = 4.5 meq/L 3.5-5.1 379) Lactation Specialist ID - ADMINLACTIC ACID, [id number] 01:12:59 Test Item Value Reference Range Interpretation Comments LACTATE BLOOD ARTERIAL (2) 0.8 mmol/L 0.5-2.0 (BEAKER) (test code = 2874) Lactation Specialist ID - ADMINBLOOD GAS, [id number] 00:27:11 Test Item Value Reference Range Interpretation [...] = 1819) 40.0 HGB/HCT (H&H) - STAT [id number] 00:27:11 Test Item Value Reference Range Interpretation Comments HEMOGLOBIN (BEAKER) (test code = 8.4 GM/DL 12.0-15.0 L 410) HEMATOCRIT (BEAKER) (test code = 25.0 % 36.0-45.0 L 411) POTASSIUM-STAT [id number] 00:26:36 Test Item Value Reference Range Interpretation Comments POTASSIUM (BEAKER) (test code = 4.2 meq/L 3.6-5.5 379) SODIUM NA-STAT [id number] 00:26:35 Test Item Value Reference Range Interpretation Comments SODIUM (BEAKER) (test code = 381) 137 meq/L 136-145 GLUCOSE-STAT [id number] 00:26:34 Test Item Value Reference Range Interpretation Comments GLUCOSE RANDOM (BEAKER) (test code 135 mg/dL 70-110 H = 652) LACTIC ACID, [id number] 22:17:42 Test Item Value Reference Range Interpretation Comments LACTATE BLOOD ARTERIAL (2) 1.5 mmol/L 0.5-2.0 (BEAKER) (test code = 2874) Lactation Specialist ID - ADMINHGB/HCT (H&H) - STAT [id number] 22:11:05 Test Item Value Reference Range Interpretation Comments HEMOGLOBIN (BEAKER) (test code = 9.0 GM/DL 12.0-15.0 L 410) HEMATOCRIT (BEAKER) (test code = 26.0 % 36.0-45.0 L 411) BLOOD GAS, [id number] 22:11:04 Test Item Value Reference Range Interpretation [...] (BEAKER) (test code = 1819) 60.0 POTASSIUM-STAT [id number] 22:10:22 Test Item Value Reference Range Interpretation Comments POTASSIUM (BEAKER) (test code = 4.7 meq/L 3.6-5.5 379) GLUCOSE-STAT [id number] 22:10:21 Test Item Value Reference Range Interpretation Comments GLUCOSE RANDOM (BEAKER) (test code 162 mg/dL 70-110 H = 652) SODIUM NA-STAT [id number] 22:10:21 Test Item Value Reference Range Interpretation [...] 1414) XR CHEST 1 VIEW PORTABLE / [id number] 21:21:05 [facility] : 1955 Sex: FTECHNIQUE: Frontal view of the chest.INDICATION: s/p ACB; Vent.COMPARISON: 03/06/2023.FINDINGS:LINES/TUBES:Endotracheal tube tip projecting approximately 5.4 cm abovethe level of the yuriy. Left IJ [place]icia catheter with tip projectingover the right main [...] Signed By: Adrián Alarcon03/15/2023 21:23 CDTWorkstation Name: [id number] 20:28:28 Test Item Value Reference Range Interpretation Comments PROTIME (BEAKER) (test 16.6 seconds 11.9-14.2 H code = 759) INR (BEAKER) (test 1.38 See_Comment [Automat ed code = 370) message] The [employer] which generated this result transmitted reference range [...] 2.5-3.5 for patients with mechanical heart valves.PROTHROMBIN TIME/[id number] 20:27:48 Test Item Value Reference Range Interpretation Comments PROTIME (BEAKER) 16.6 seconds 11.9-14.2 H (test code = 759) INR (BEAKER) (test 1.38 See_Comment [Automat ed message] code = 370) The system [employer] generated this result transmitted ref erence range: [...] not appl icable for dialysis patien ts Lactation Specialist ID - [id number] 20:16:46 Test Item Value Reference Range Interpretation Comments PHOSPHORUS (BEAKER) (test code = 5.1 mg/dL 2.3-4.7 H 604) Lactation Specialist ID - [id number] 20:16:45 Test Item Value Reference Range Interpretation Comments MAGNESIUM (BEAKER) (test code = 2.8 mg/dL 1.6-2.6 H 627) Lactation Specialist ID - ADMINLACTIC ACID, [id number] 20:10:25 Test Item Value Reference Range Interpretation Comments LACTATE BLOOD 1.7 mmol/L 0.5-2.0 Specimen sligh tly ARTERIAL (2) (BEAKER) hemoly zed (test code = 2874) Lactation Specialist ID - EMCBC W/PLT COUNT & AUTO [id number] 20:08:41 Test Item Value Reference Range Interpretation [...] PERCENT (BEAKER) (test code = 2801) CALCIUM, [id number] 20:01:01 Test Item Value Reference Range Interpretation Comments CALCIUM IONIZED (BEAKER) (test 1.26 mmol/L 1.12-1.27 code = 698) PH, BLOOD (BEAKER) (test code = 7.33 1810) HGB/HCT (H&H) - STAT [id number] 20:00:39 Test Item Value Reference Range Interpretation Comments HEMOGLOBIN (BEAKER) (test code = 10.0 GM/DL 12.0-15.0 L 410) HEMATOCRIT (BEAKER) (test code = 29.0 % 36.0-45.0 L 411) BLOOD GAS, [id number] 20:00:33 Test Item Value Reference Range Interpretation [...] (test code = 1819) 60.0 OXYGEN SATURATION, [id number] 19:57:02 Test Item Value Reference Range Interpretation Comments O2 SATURATION (MEASURED) (BEAKER) 63.6 % (test code = 1455) POTASSIUM-STAT [id number] 19:56:44 Test Item Value Reference Range Interpretation Comments POTASSIUM (BEAKER) (test code = 4.8 meq/L 3.6-5.5 379) GLUCOSE-STAT [id number] 19:56:43 Test Item Value Reference Range Interpretation Comments GLUCOSE RANDOM (BEAKER) (test code 207 mg/dL 70-110 H = 652) SODIUM NA-STAT [id number] 19:56:43 Test Item Value Reference Range Interpretation Comments SODIUM (BEAKER) (test code = 381) 137 meq/L 136-145 [id number] 19:07:33 Test Item Value Reference Range Interpretation Comments PARTIAL THROMBOPLASTIN TIME 27.1 seconds 22.5-36.0 (BEAKER) (test code = 760) [id number] 19:07:32 Test Item Value Reference Range Interpretation Comments FIBRINOGEN LEVEL (BEAKER) (test 318 mg/dl 225-434 code = 658) PROTHROMBIN [id number] 19:07:16 Test Item Value Reference Range Interpretation Comments PROTIME (BEAKER) 17.6 seconds 11.9-14.2 H (test code = 759) INR (BEAKER) (test 1.54 See_Comment [Automat ed message] code = 370) The system [employer] generated this result transmitted ref erence range: <=5.90. The reference range was not used to int erpret this result as normal/abnormal . RECOMMENDED COUMADIN/WARFARIN INR THERAPY RANGESSTANDARD DOSE: 2.0 - 3.0 Includes: PROPHYLAXIS for venous thrombosis, systemic embolization; TREATMENT for venous thrombosis and/or pulmonary embolus.HIGH RISK: Target INR is 2.5-3.5 for patients with mechanical heart valves.CALCIUM, [id number] 19:06:53 Test Item Value Reference Range Interpretation Comments CALCIUM IONIZED (BEAKER) (test 1.25 mmol/L 1.12-1.27 code = 698) PH, BLOOD (BEAKER) (test code = 7.35 6240) HGB/HCT (H&H) - STAT [id number] 19:06:05 Test Item Value Reference Range Interpretation Comments HEMOGLOBIN (BEAKER) (test code = 9.5 GM/DL 12.0-15.0 L 410) HEMATOCRIT (BEAKER) (test code = 28.0 % 36.0-45.0 L 411) BLOOD GAS, [id number] 19:05:59 Test Item Value Reference Range Interpretation [...] (BEAKER) (test code = 1819) 100.0 POTASSIUM-STAT [id number] 19:02:35 Test Item Value Reference Range Interpretation Comments POTASSIUM (BEAKER) (test code = 5.1 meq/L 3.6-5.5 379) SODIUM NA-STAT [id number] 19:02:34 Test Item Value Reference Range Interpretation Comments SODIUM (BEAKER) (test code = 381) 136 meq/L 136-145 GLUCOSE-STAT [id number] 19:02:33 Test Item Value Reference Range Interpretation Comments GLUCOSE RANDOM (BEAKER) (test code 222 mg/dL 70-110 H = 652) PLATELET [id number] 18:50:32 Test Item Value Reference Range Interpretation Comments PLATELET COUNT (BEAKER) (test 142 K/CU MM 150-450 L code = 756) Lactation Specialist ID - [id number]/HCT (H&H) - STAT [id number] 18:37:10 Test Item Value Reference Range Interpretation Comments HEMOGLOBIN (BEAKER) (test code = 7.8 GM/DL 12.0-15.0 L 410) HEMATOCRIT (BEAKER) (test code = 23.0 % 36.0-45.0 L 411) BLOOD GAS, [id number] 18:37:09 Test Item Value Reference Range Interpretation [...] (BEAKER) (test code = 1819) 100.0 CALCIUM, [id number] 18:36:58 Test Item Value Reference Range Interpretation Comments CALCIUM IONIZED (BEAKER) (test 1.15 mmol/L 1.12-1.27 code = 698) PH, BLOOD (BEAKER) (test code = 7.34 1810) POTASSIUM-STAT [id number] 18:36:35 Test Item Value Reference Range Interpretation Comments POTASSIUM (BEAKER) (test code = 4.7 meq/L 3.6-5.5 379) GLUCOSE-STAT [id number] 18:36:34 Test Item Value Reference Range Interpretation Comments GLUCOSE RANDOM (BEAKER) (test code 234 mg/dL 70-110 H = 652) SODIUM NA-STAT [id number] 18:36:34 Test Item Value Reference Range Interpretation Comments SODIUM (BEAKER) (test code = 381) 138 meq/L 136-145 [id number] 18:22:42 Test Item Value Reference Range Interpretation Comments PARTIAL THROMBOPLASTIN TIME > seconds 22.5-36.0 HH (BEAKER) (test code = 760) CALCIUM, [id number] 17:40:17 Test Item Value Reference Range Interpretation Comments CALCIUM IONIZED (BEAKER) (test 1.19 mmol/L 1.12-1.27 code = 698) PH, BLOOD (BEAKER) (test code = 7.34 1810) HGB/HCT (H&H) - STAT [id number] 17:39:54 Test Item Value Reference Range Interpretation Comments HEMOGLOBIN (BEAKER) (test code = 7.2 GM/DL 12.0-15.0 L 410) HEMATOCRIT (BEAKER) (test code = 21.0 % 36.0-45.0 L 411) BLOOD GAS, [id number] 17:39:53 Test Item Value Reference Range Interpretation [...] (test code = 1819) 100.0 SODIUM NA-STAT [id number] 17:39:41 Test Item Value Reference Range Interpretation Comments SODIUM (BEAKER) (test code = 381) 135 meq/L 136-145 L POTASSIUM-STAT [id number] 17:39:41 Test Item Value Reference Range Interpretation Comments POTASSIUM (BEAKER) (test code = 5.3 meq/L 3.6-5.5 379) GLUCOSE-STAT [id number] 17:39:40 Test Item Value Reference Range Interpretation Comments GLUCOSE RANDOM (BEAKER) (test code 236 mg/dL 70-110 H = 652) HGB/HCT (H&H) - STAT [id number] 17:16:48 Test Item Value Reference Range Interpretation Comments HEMOGLOBIN (BEAKER) (test code = 8.1 GM/DL 12.0-15.0 L 410) HEMATOCRIT (BEAKER) (test code = 24.0 % 36.0-45.0 L 411) BLOOD GAS, [id number] 17:16:42 Test Item Value Reference Range Interpretation [...] (BEAKER) (test code = 1819) 90.0 POTASSIUM-STAT [id number] 17:16:37 Test Item Value Reference Range Interpretation Comments POTASSIUM (BEAKER) (test code = 5.4 meq/L 3.6-5.5 379) SODIUM NA-STAT [id number] 17:16:36 Test Item Value Reference Range Interpretation Comments SODIUM (BEAKER) (test code = 381) 135 meq/L 136-145 L GLUCOSE-STAT [id number] 17:16:35 Test Item Value Reference Range Interpretation Comments GLUCOSE RANDOM (BEAKER) (test code 191 mg/dL 70-110 H = 652) [id number] 17:06:14 Test Item Value Reference Range Interpretation Comments FIBRINOGEN LEVEL (BEAKER) (test 235 mg/dl 225-434 code = 658) PROTHROMBIN [id number] 17:05:50 Test Item Value Reference Range Interpretation Comments PROTIME (BEAKER) 28.0 seconds 11.9-14.2 H (test code = 759) INR (BEAKER) (test 2.72 See_Comment [Automat ed message] code = 370) The system [employer] generated this result transmitted ref erence range: <=5.90. The reference range was not used to int erpret this result as normal/abnormal . RECOMMENDED COUMADIN/WARFARIN INR THERAPY RANGESSTANDARD DOSE: 2.0 - 3.0 Includes: PROPHYLAXIS for venous thrombosis, systemic embolization; TREATMENT for venous thrombosis and/or pulmonary embolus.HIGH RISK: Target INR is 2.5-3.5 for patients with mechanical heart valves.LACTIC ACID, [id number] 17:02:49 Test Item Value Reference Range Interpretation Comments LACTATE BLOOD ARTERIAL (2) 0.7 mmol/L 0.5-2.0 (BEAKER) (test code = 2874) Lactation Specialist ID - EMPLATELET [id number] 16:51:06 Test Item Value Reference Range Interpretation Comments PLATELET COUNT (BEAKER) (test 122 K/CU MM 150-450 L code = 756) Lactation Specialist ID - [id number]/HCT (H&H) - STAT [id number] 16:38:49 Test Item Value Reference Range Interpretation Comments HEMOGLOBIN (BEAKER) (test code = 7.8 GM/DL 12.0-15.0 L 410) HEMATOCRIT (BEAKER) (test code = 23.0 % 36.0-45.0 L 411) BLOOD GAS, [id number] 16:38:43 Test Item Value Reference Range Interpretation [...] (BEAKER) (test code = 1819) 80.0 POTASSIUM-STAT [id number] 16:38:26 Test Item Value Reference Range Interpretation Comments POTASSIUM (BEAKER) (test code = 5.3 meq/L 3.6-5.5 379) GLUCOSE-STAT [id number] 16:38:25 Test Item Value Reference Range Interpretation Comments GLUCOSE RANDOM (BEAKER) (test code 181 mg/dL 70-110 H = 652) SODIUM NA-STAT [id number] 16:38:25 Test Item Value Reference Range Interpretation Comments SODIUM (BEAKER) (test code = 381) 137 meq/L 136-145 POTASSIUM-STAT [id number] 16:09:45 Test Item Value Reference Range Interpretation Comments POTASSIUM (BEAKER) (test code = 6.1 meq/L 3.6-5.5 HH 379) SODIUM NA-STAT [id number] 16:03:18 Test Item Value Reference Range Interpretation Comments SODIUM (BEAKER) (test code = 381) 134 meq/L 136-145 L HGB/HCT (H&H) - STAT [id number] 16:03:17 Test Item Value Reference Range Interpretation Comments HEMOGLOBIN (BEAKER) (test code = 8.3 GM/DL 12.0-15.0 L 410) HEMATOCRIT (BEAKER) (test code = 24.0 % 36.0-45.0 L 411) BLOOD GAS, [id number] 16:03:11 Test Item Value Reference Range Interpretation [...] (BEAKER) (test code = 1819) 80.0 GLUCOSE-STAT [id number] 16:02:59 Test Item Value Reference Range Interpretation Comments GLUCOSE RANDOM (BEAKER) (test code 210 mg/dL 70-110 H = 652) LACTIC ACID, [id number] 15:51:13 Test Item Value Reference Range Interpretation Comments LACTATE BLOOD ARTERIAL (2) 1.2 mmol/L 0.5-2.0 (BEAKER) (test code = 2874) Lactation Specialist ID - EMSODIUM NA-STAT [id number] 15:35:22 Test Item Value Reference Range Interpretation Comments SODIUM (BEAKER) (test code = 381) 132 meq/L 136-145 L HGB/HCT (H&H) - STAT [id number] 15:35:17 Test Item Value Reference Range Interpretation Comments HEMOGLOBIN (BEAKER) (test code = 8.9 GM/DL 12.0-15.0 L 410) HEMATOCRIT (BEAKER) (test code = 26.0 % 36.0-45.0 L 411) BLOOD GAS, [id number] 15:35:11 Test Item Value Reference Range Interpretation [...] (BEAKER) (test code = 1819) 80.0 POTASSIUM-STAT [id number] 15:34:54 Test Item Value Reference Range Interpretation Comments POTASSIUM (BEAKER) (test code = 5.0 meq/L 3.6-5.5 379) GLUCOSE-STAT [id number] 15:34:49 Test Item Value Reference Range Interpretation Comments GLUCOSE RANDOM (BEAKER) (test code 207 mg/dL 70-110 H = 652) BLOOD GAS, [id number] 12:11:33 Test Item Value Reference Range Interpretation [...] = 1819) 100.0 HGB/HCT (H&H) - STAT [id number] 12:11:33 Test Item Value Reference Range Interpretation Comments HEMOGLOBIN (BEAKER) (test code = 8.1 GM/DL 12.0-15.0 L 410) HEMATOCRIT (BEAKER) (test code = 24.0 % 36.0-45.0 L 411) CALCIUM, [id number] 12:11:32 Test Item Value Reference Range Interpretation Comments CALCIUM IONIZED (BEAKER) (test 1.11 mmol/L 1.12-1.27 L code = 698) PH, BLOOD (BEAKER) (test code = 7.46 1810) SODIUM NA-STAT [id number] 12:10:29 Test Item Value Reference Range Interpretation Comments SODIUM (BEAKER) (test code = 381) 135 meq/L 136-145 L POTASSIUM-STAT [id number] 12:10:29 Test Item Value Reference Range Interpretation Comments POTASSIUM (BEAKER) (test code = 4.1 meq/L 3.6-5.5 379) GLUCOSE-STAT [id number] 12:10:24 Test Item Value Reference Range Interpretation Comments GLUCOSE RANDOM (BEAKER) (test code 164 mg/dL 70-110 H = 652) POCT-GLUCOSE [id number] 08:12:49 Test Item Value Reference Range Interpretation Comments POC-GLUCOSE METER 154 mg/dL 70-110 H : TESTED A T [facility] 6720 (BEAKER) (test code = [place], 1538) [address]: Lactation Specialist/Techni patricia ID = [id number] for Biju Danielle BASIC METABOLIC [id number] 06:03:10 Test Item Value Reference Range Interpretation [...] not appl icable for dialysis patien ts Lactation Specialist ID - [id number] 05:44:32 Test Item Value Reference Range Interpretation Comments PHOSPHORUS (BEAKER) (test code = 4.4 mg/dL 2.3-4.7 604) Lactation Specialist ID - [id number] 05:44:31 Test Item Value Reference Range Interpretation Comments MAGNESIUM (BEAKER) (test code = 1.9 mg/dL 1.6-2.6 627) Lactation Specialist ID - ADMINCBC (HEMOGRAM ONLY)2023-03-15 05:35:13 Test [...] CELLS (BEAKER) (test code = 413) POCT-GLUCOSE [id number] 22:03:17 Test Item Value Reference Range Interpretation Comments POC-GLUCOSE METER 161 mg/dL 70-110 H : TESTED A T [facility] 6720 (BEAKER) (test code = [facility], 1538) [address]: Lactation Specialist/Techni patricia ID = [id number] for MICHAEL PENALOZA POCT-GLUCOSE [id number] 17:56:09 Test Item Value Reference Range Interpretation Comments POC-GLUCOSE METER 237 mg/dL 70-110 H : TESTED A T [facility] 6720 (BEAKER) (test code = [facility], 1538) [address]: Lactation Specialist/Techni patricia ID = [id number] for Hannah cobb (contract)Juan C BASIC METABOLIC [id number] 05:53:39 Test Item Value Reference Range Interpretation [...] not appl icable for dialysis patien ts Lactation Specialist ID - [id number] 05:47:10 Test Item Value Reference Range Interpretation Comments PHOSPHORUS (BEAKER) (test code = 5.4 mg/dL 2.3-4.7 H 604) Lactation Specialist ID - ORGKXSQCKILEXS8571-28-94 05:47:09 Test Item Value Reference Range Interpretation Comments MAGNESIUM (BEAKER) (test code = 2.0 mg/dL 1.6-2.6 627) Lactation Specialist ID - ADMINCBC (HEMOGRAM ONLY)2023-03-14 05:21:44 Test [...] code = 413) CT CHEST WITH IV [id number] 00:04:10 [facility]ENTER[facility]ET MOTTA : 1955 Sex: FEXAM:CT [...] Signed By: Tomas Hamilton03/14/2023 00:07 CDTWorkstation Name: [id number] 22:45:05 Test Item Value Reference Range Interpretation Comments POC-GLUCOSE METER 145 mg/dL 70-110 H : TESTED A T [facility] 6720 ([employer]) (test code = [facility], [facility]) [address]: Lactation Specialist/Techni patricia ID = [id number] for Aracelis David POCT-GLUCOSE [id number] 16:29:49 Test Item Value Reference Range Interpretation Comments POC-GLUCOSE METER 122 mg/dL 70-110 H : TESTED A T [facility] 6720 (MengcaoAKER) (test code = [facility], 1538) [address]: Lactation Specialist/Techni patricia ID = [id number] for Fa ircloth, Lucila POCT-GLUCOSE [id number] 11:46:15 Test Item Value Reference Range Interpretation Comments POC-GLUCOSE METER 168 mg/dL 70-110 H : TESTED A T [facility] 6720 (MengcaoAKER) (test code = [facility], 1538) [address]: Lactation Specialist/Techni patricia ID = [id number] for Fa ircloth, Lucila POCT-GLUCOSE [id number] 07:43:21 Test Item Value Reference Range Interpretation Comments POC-GLUCOSE METER 173 mg/dL 70-110 H : TESTED A T [facility] 6720 (BEAKER) (test code = [place], 1538) [address]: Lactation Specialist/Techni patricia ID = [id number] for Lucila Hutchins BASIC METABOLIC [id number] 06:40:10 Test Item Value Reference Range Interpretation [...] eGF R is based on the CKD-EPI 1 equation that d oes not use a race coefficientEsti mated GFR is not as accur ate as Creatinine Birdie snyder in predicting glom erular filtration rate . Estimated GFR is not appl icable for dialysis patien ts Lactation Specialist ID - [id number] 06:36:46 Test Item Value Reference Range Interpretation Comments PHOSPHORUS (BEAKER) (test code = 4.7 mg/dL 2.3-4.7 604) Lactation Specialist ID - UTUCNZKVVVNAGZ4216-90-07 06:36:45 Test Item Value Reference Range Interpretation Comments MAGNESIUM (BEAKER) (test code = 1.9 mg/dL 1.6-2.6 627) Lactation Specialist ID - ADMINCBC (HEMOGRAM ONLY)2023-03-13 04:32:19 Test [...] 0-0 (BEAKER) (test code = 413) POCT-GLUCOSE [id number] 20:48:05 Test Item Value Reference Range Interpretation Comments POC-GLUCOSE METER 243 mg/dL 70-110 H : TESTED A T [facility] 6720 (BEAKER) (test code = [facility], 1538) [address]: Lactation Specialist/Techni patricia ID = [id number] for Thierry Mccormick POCT-GLUCOSE [id number] 11:12:18 Test Item Value Reference Range Interpretation Comments POC-GLUCOSE METER 119 mg/dL 70-110 H : TESTED A T [facility] 6720 (BEAKER) (test code = [facility], 1538) 523[address]: Lactation Specialist/Techni patricia ID = [id number] for Ag Amy zheng POCT-GLUCOSE [id number] 08:10:31 Test Item Value Reference Range Interpretation Comments POC-GLUCOSE METER 147 mg/dL 70-110 H : TESTED A T [facility] 6720 (BEAKER) (test code = [place], 1538) [address]: Lactation Specialist/Techni patricia ID = [id number] for PRESLEY RICARDO BASIC METABOLIC [id number] 04:54:03 Test Item Value Reference Range Interpretation [...] not appl icable for dialysis patien ts Lactation Specialist ID - [id number] 04:49:59 Test Item Value Reference Range Interpretation Comments MAGNESIUM (BEAKER) (test code = 2.0 mg/dL 1.6-2.6 627) Lactation Specialist ID - LHVCSQTFQBJIGQG9558-64-56 04:49:59 Test Item Value Reference Range Interpretation Comments PHOSPHORUS (BEAKER) (test code = 6.4 mg/dL 2.3-4.7 H 604) Lactation Specialist ID - ADMINCBC (HEMOGRAM ONLY)2023-03-12 04:05:47 Test [...] (test code = 413) HIGH SENSITIVITY TROPONIN [id number] 22:12:43 Test Item Value Reference Range Interpretation Comments HIGH SENSITIVITY 61 pg/ml See_Comment H [Automated message] TROPONIN I (test code = The system which [id number]) generated this result transmitted ref erence range: <=17. Th e reference range was not used to int erpret this result as normal/abnormal . Lactation Specialist ID - ADMINThe CROP RESEARCH SCIENTIST STAT High Sensitivity Troponin-I results should be used in conjunction with other diagnostic information such as ECG, clinical observations and information, and patientsymptoms to aid in the diagnosis of RI. XR ABDOMEN/KUB 1 VIEW [id number] 21:43:47 [facility] 1955 Sex: FTECHNIQUE: Supine views of the abdomen.INDICATION: vomiting.COMPARISON: None.FINDINGS/IMPRESSION:Bowel gas pattern is nonspecific with paucity of small bowel gas. Smallvolume of colonic fecal matter present. Status post cholecystectomy. Noacute osseous abnormality. Status post L4-L5 transpedicular screw androd fusion. Moderate degenerative disc disease at L2-L3.Electronically Signed By: Shleton Donaldson03/11/2023 21:45 CDTWorkstation Name: [id number]- GLUCOSE [id number] 20:50:48 Test Item Value Reference Range Interpretation Comments POC-GLUCOSE METER 172 mg/dL 70-110 H : TESTED A T [facility] 6720 (BEAKER) (test code = [facility], 1538) 61775: Lactation Specialist/Techni patricia ID = [id number] for Thierry Mccormick POCT-GLUCOSE [id number] 16:50:23 Test Item Value Reference Range Interpretation Comments POC-GLUCOSE METER 153 mg/dL 70-110 H : TESTED A T [facility] 6720 (BEAKER) (test code = [facility], 1538) 51723: Lactation Specialist/Techni patricia ID = [id number] for Kingsley shea POCT-GLUCOSE [id number] 12:32:46 Test Item Value Reference Range Interpretation Comments POC-GLUCOSE METER 233 mg/dL 70-110 H : TESTED A T [facility] 6720 (BEAKER) (test code = [facility] Kadriana [facility], 1538) [address]: Lactation Specialist/Techni patricia ID = [id number] for Kingsley Fuller POCT-GLUCOSE [id number] 08:32:00 Test Item Value Reference Range Interpretation Comments POC-GLUCOSE METER 148 mg/dL 70-110 H : TESTED A T [facility] 6720 (BEAKER) (test code = [place], 1538) [address]: Lactation Specialist/Techni patricia ID = [id number] for Kingsley Fuller BASIC METABOLIC [id number] 05:03:14 Test Item Value Reference Range Interpretation [...] not appl icable for dialysis patien ts Lactation Specialist ID - JAKE [id number] 05:00:14 Test Item Value Reference Range Interpretation Comments MAGNESIUM (BEAKER) (test code = 2.1 mg/dL 1.6-2.6 627) Lactation Specialist ID - JAKE [id number] 05:00:14 Test Item Value Reference Range Interpretation Comments PHOSPHORUS (BEAKER) (test code = 5.6 mg/dL 2.3-4.7 H 604) Lactation Specialist ID Gali JOSEPH WCBC (HEMOGRAM ONLY)2023-03-11 04:20:00 [...] 0-0 (BEAKER) (test code = 413) BLOOD [id number] 03:00:43 Test Item Value Reference Range Interpretation Comments CULTURE (BEAKER) (test No growth in 5 days code = 1095) BLOOD [id number] 03:00:42 Test Item Value Reference Range Interpretation Comments CULTURE (BEAKER) (test No growth in 5 days code = 1095) POCT-GLUCOSE [id number] 22:16:40 Test Item Value Reference Range Interpretation Comments POC-GLUCOSE METER 168 mg/dL 70-110 H : TESTED A T [facility] 6720 (BEAKER) (test code = SARM[facility] REARDON, 1538) [id number]: Lactation Specialist/Techni patricia ID = [id number] for Du Violet silver POCT-GLUCOSE [id number] 16:24:20 Test Item Value Reference Range Interpretation Comments POC-GLUCOSE METER 114 mg/dL 70-110 H : TESTED A T [facility] 6720 (BEAKER) (test code = SARMAD Barreto [facility], 1538) [id number]: Lactation Specialist/Techni patricia ID = [id number] for JEROME DUARTE POCT-GLUCOSE [id number] 12:20:28 Test Item Value Reference Range Interpretation Comments POC-GLUCOSE METER 153 mg/dL 70-110 H : TESTED A T [facility] 6720 (BEAKER) (test code = [facility], 1538) [id number]: Lactation Specialist/Techni patricia ID = [id number] for JEROME DUARTE POCT-GLUCOSE [id number] 09:13:42 Test Item Value Reference Range Interpretation Comments POC-GLUCOSE METER 130 mg/dL 70-110 H : TESTED A T [facility] 6720 (BEAKER) (test code = [facility], 1538) [id number]: Lactation Specialist/Techni patricia ID = [id number] for JEROME DUARTE BASIC METABOLIC [id number] 06:16:34 Test Item Value Reference Range Interpretation [...] high >=90 G2 Mildly decreased 60-89 G3a Mild ly to moderately 45-5 9 G3b Moderately to [...] not appl icable for dialysis patien ts Lactation Specialist ID - [id number] 06:08:56 Test Item Value Reference Range Interpretation Comments MAGNESIUM (BEAKER) (test code = 2.0 mg/dL 1.6-2.6 627) Lactation Specialist ID - [id number] 06:08:56 Test Item Value Reference Range Interpretation Comments PHOSPHORUS (BEAKER) (test code = 4.2 mg/dL 2.3-4.7 604) Lactation Specialist ID - ADMINCBC (HEMOGRAM ONLY)2023-03-10 05:44:11 Test [...] 0-0 (BEAKER) (test code = 413) POCT-GLUCOSE [id number] 22:34:22 Test Item Value Reference Range Interpretation Comments POC-GLUCOSE METER 140 mg/dL 70-110 H : TESTED A T [facility] 6720 (BEAKER) (test code = [facility], 1538) [address]: Lactation Specialist/Techni patricia ID = [id number] for MICHAEL PENALOZA POCT-GLUCOSE [id number] 17:16:18 Test Item Value Reference Range Interpretation Comments POC-GLUCOSE METER 101 mg/dL 70-110 : TESTED A T [facility] 6720 (BEAKER) (test code = [facility], 1538) 598[address]: Lactation Specialist/Techni patricia ID = [id number] for Ashley Valdovinos POCT-GLUCOSE [id number] 11:50:32 Test Item Value Reference Range Interpretation Comments POC-GLUCOSE METER 155 mg/dL 70-110 H : TESTED A T [facility] 6720 (BEAKER) (test code = [facility], [facility]8) [address]2276: Lactation Specialist/Techni patricia ID = [id number] for Mar Santamaria POCT-GLUCOSE [id number] 08:37:48 Test Item Value Reference Range Interpretation Comments POC-GLUCOSE METER 172 mg/dL 70-110 H : TESTED A T [facility] 6720 (BEAKER) (test code = [facility], [facility]) 95859: Lactation Specialist/Techni patricia ID = [id number] for Mar Santamaria BASIC METABOLIC [id number] 04:30:36 Test Item Value Reference Range Interpretation [...] high >=90 G2 Mildly decreased 60-89 G3a Mild ly to moderately 45-5 9 G3b Moderately to [...] not appl icable for dialysis patien ts Lactation Specialist ID - [id number] 04:29:33 Test Item Value Reference Range Interpretation Comments PHOSPHORUS (BEAKER) (test code = 6.8 mg/dL 2.3-4.7 H 604) Lactation Specialist ID - [id number] 04:29:32 Test Item Value Reference Range Interpretation Comments MAGNESIUM (BEAKER) (test code = 2.1 mg/dL 1.6-2.6 627) Lactation Specialist ID - ADMINPROTHROMBIN TIME/[id number] 04:07:04 Test Item Value Reference Range Interpretation Comments PROTIME (BEAKER) 16.6 seconds 11.9-14.2 H (test code = 759) INR (BEAKER) (test 1.38 See_Comment [Automat ed message] code = 370) The system [employer] generated this result transmitted ref erence range: [...] CELLS (BEAKER) (test code = 413) POCT-GLUCOSE [id number] 21:18:16 Test Item Value Reference Range Interpretation Comments POC-GLUCOSE METER 199 mg/dL 70-110 H : TESTED A T [facility] 6720 (BEAKER) (test code = [facility], 153) 847[address]: Lactation Specialist/Techni patricia ID = [id number] for Thierry Mccormick POCT-GLUCOSE [id number] 17:42:45 Test Item Value Reference Range Interpretation Comments POC-GLUCOSE METER 186 mg/dL 70-110 H : TESTED A T [facility] 6720 (BEAKER) (test code = [facility], 153) 903[address]: Lactation Specialist/Techni patricia ID = [id number] for Ke jerri, [place] POCT-GLUCOSE [id number] 11:43:40 Test Item Value Reference Range Interpretation Comments POC-GLUCOSE METER 127 mg/dL 70-110 H : TESTED A T [facility] 6720 (BEAKER) (test code = [facility], 153) 10010: Lactation Specialist/Techni patricia ID = [id number] for Matchanickal, S justo POCT-GLUCOSE [id number] 09:02:04 Test Item Value Reference Range Interpretation Comments POC-GLUCOSE METER 111 mg/dL 70-110 H : TESTED A T [facility] 6720 (BEAKER) (test code = [facility], 1538) 998[address]: Lactation Specialist/Techni patricia ID = [id number] for Kingsley Fuller BASIC METABOLIC [id number] 06:18:46 Test Item Value Reference Range Interpretation [...] high >=90 G2 Mildly decreased 60-89 G3a Mild ly to moderately 45-5 9 G3b Moderately to [...] not appl icable for dialysis patien ts Lactation Specialist ID - ADMINHEPATIC FUNCTION [id number] 06:04:57 Test Item Value Reference Range Interpretation [...] (test code = 25 U/L 6-55 347) Lactation Specialist ID - [id number] 06:04:56 Test Item Value Reference Range Interpretation Comments MAGNESIUM (BEAKER) (test code = 2.0 mg/dL 1.6-2.6 627) Lactation Specialist ID - [id number] 06:04:56 Test Item Value Reference Range Interpretation Comments PHOSPHORUS (BEAKER) (test code = 5.8 mg/dL 2.3-4.7 H 604) Lactation Specialist ID - ADMINCBC (HEMOGRAM ONLY)2023-03-08 05:43:26 Test [...] 0-0 (BEAKER) (test code = 413) POCT-GLUCOSE [id number] 21:37:28 Test Item Value Reference Range Interpretation Comments POC-GLUCOSE METER 117 mg/dL 70-110 H : TESTED A T [facility] 6720 (BEAKER) (test code = [place], 1538) [address]: Lactation Specialist/Techni patricia ID = [id number] for LESLI MORLEY CT BRAIN WITHOUT IV [id number] 07:08:22 [facility] : 1955 Sex: FCT Head without contrastCLINICAL [...] circulation.There is mild generalized sulcal prominence without hydroce phalus,midline shift, or apparent mass effect. There are no extra-axial fluidcollections. The skull is intact. The visualized paranasal sinuses arewell- aerated. IMPRESSION:No CT evidence of acute infarct, hemorrhage, or hydrocephalus.Electronically Signed By: Jeferson Novak03/07/2023 07:10 CDTWorkstation Name: [id number] METABOLIC [id number] 03:31:07 Test Item Value Reference Range Interpretation [...] not appl icable for dialysis patien ts Lactation Specialist ID - ADMINCBC W/PLT COUNT & AUTO [id number] 03:15:35 Test Item Value Reference Range Interpretation [...] PERCENT (BEAKER) (test code = 2801) POCT-GLUCOSE [id number] 22:50:12 Test Item Value Reference Range Interpretation Comments POC-GLUCOSE METER 104 mg/dL 70-110 : TESTED A T [facility] 6720 (BEAKER) (test code = [facility], 153) 763[address]: Lactation Specialist/Techni patricia ID = [id number] for MICHAEL PENALOZA POCT-GLUCOSE [id number] 16:58:37 Test Item Value Reference Range Interpretation Comments POC-GLUCOSE METER 80 mg/dL 70-110 : TESTED A T [facility] 6720 (BEAKER) (test code = [facility], 153) 89126: Lactation Specialist/Techni patricia ID = [id number] for Nikolai Biju connell HEPATITIS B SURFACE [id number] 14:54:34 Test Item Value Reference Range Interpretation Comments HEPATITIS B SURFACE ANTIGEN (2) Nonreactive Nonreactive (BEAKER) (test code = 2585) Specimen is considered negative for HBsAg.POCT-GLUCOSE [id number] 14:04:25 Test Item Value Reference Range Interpretation Comments POC-GLUCOSE METER 87 mg/dL 70-110 : TESTED A T [facility] 6720 ([facility]) (test code = [facility], 1538) [address]: Lactation Specialist/Techni patricia ID = [id number] for Biju Ibarra HEMOGLOBIN [id number] 12:32:12 Test Item Value Reference Range Interpretation Comments HEMOGLOBIN A1C 5.9 % See_Comment H [Automated m essage] ELECTROPHORESIS (TRAN) The system which (test code = 3811) generated this result transmitted ref erence range: <=5.6%. The reference range was not used to int erpret this result as normal/abnormal . "The A1c is measured using a [facility]-certified method. HbA1c value equal to or greater than 6.5% as thediagnosis cutoff for diabetes. An HbA1c value of 5.7- 6.4% indicates increased risk for diabetes (prediabetes)."Lactation Specialist ID - [id number] ID - [id number] ID - ADMPOCT-GLUCOSE [id number] 10:32:20 Test Item Value Reference Range Interpretation Comments POC-GLUCOSE METER 87 mg/dL 70-110 : TESTED A Diony [facility] 6720 [facility] (test code = [facility], 1538) [address]: Lactation Specialist/Techni patricia ID = [id number] for Biju Ibarra XR KNEE 1 OR 2 VIEWS [id number] 10:23:39 [facility] 1955 Sex: FCLINICAL HISTORY: infected knee [...] Signed By: Garret Morel03/06/2023 10:25 CDTWorkstation Name: [id number] KNEE 1 OR 2 VIEWS [id number] 10:23:39 [facility] : 1955 Sex: FCLINICAL HISTORY: infected knee [...] Signed By: Garret Morel03/06/2023 10:25 CDTWorkstation Name: [id number], [id number] 05:09:13 Test Item Value Reference Range Interpretation Comments VITAMIN D 25-OH (BEAKER) (test 45.0 ng/mL 6.6-49.9 code = 2764) Effective 04/18/2017: Reference Range ChangeNew: 6.6-49.9 ng/mL Previous: 13.0- 47.8 ng/mLRecommendedVitamin D Target Range: 30.0-40.0 ng/mLOperator ID - ADMIN VANCOMYCIN LEVEL, [id number] 05:02:30 Test Item Value Reference Range Interpretation Comments VANCOMYCIN RANDOM (BEAKER) (test 14.5 ug/mL code = 523) Reference Range: No NormalsOperator ID - ADMINPTH, [id number] 04:47:29 Test Item Value Reference Range Interpretation Comments PARATHYROID HORMONE INTACT 438.8 pg/mL 8.5-72.5 H (BEAKER) (test code = 577) Lactation Specialist ID - ADMINLACTIC ACID, [id number] 02:49:21 Test Item Value Reference Range Interpretation Comments LACTATE BLOOD VENOUS (2) (BEAKER) 0.85 mmol/L 0.50-2.00 (test code = 2872) Lactation Specialist ID - ADMINLIPID [id number] 02:07:07 Test Item Value Reference Range Interpretation [...] Borderline 130-159 High 160-189 Very High >=190 Lactation Specialist ID - ADMINCOMPREHENSIVE METABOLIC [id number] 01:49:14 Test Item Value Reference Range Interpretation [...] not appl icable for dialysis patien ts Lactation Specialist ID - ADMINHIGH SENSITIVITY TROPONIN [id number] 01:49:09 Test Item Value Reference Range Interpretation Comments HIGH SENSITIVITY 50 pg/ml See_Comment H [Automated message] TROPONIN I (test code = The system which 6152703) generated this result transmitted ref erence range: <=17. Th e reference range was not used to int erpret this result as normal/abnormal . Lactation Specialist ID - ADMINThe CROP RESEARCH SCIENTIST STAT High Sensitivity Troponin-I results should be used in conjunction with other diagnostic information such as ECG, clinical observations and information, and patientsymptoms to aid in the diagnosis of RI. B-TYPE NATRIURETIC FACTOR (BNP)2023-03-06 01:48:05 Test Item Value Reference Range Interpretation Comments B-TYPE NATRIURETIC PEPTIDE 2119 pg/mL 0-100 H (BEAKER) (test code = 700) Lactation Specialist ID - [id number] 01:47:32 Test Item Value Reference Range Interpretation Comments MAGNESIUM (BEAKER) (test code = 2.0 mg/dL 1.6-2.6 627) Lactation Specialist ID - DTKUGINDSMJWUVY2402-29-97 01:47:32 Test Item Value Reference Range Interpretation Comments PHOSPHORUS (BEAKER) (test code = 8.1 mg/dL 2.3-4.7 H 604) Lactation Specialist ID - ADMINPROTHROMBIN TIME/[id number] 01:41:06 Test Item Value Reference Range Interpretation Comments PROTIME (BEAKER) 17.0 seconds 11.9-14.2 H (test code = 759) INR (BEAKER) (test 1.48 See_Comment [Automat ed message] code = 370) The system whic h generated this result transmitted ref erence range: <=5.90. The reference range was not used to int erpret this result as normal/abnormal . RECOMMENDED COUMADIN/WARFARIN INR THERAPY RANGESSTANDARD DOSE: 2.0 - 3.0 Includes: PROPHYLAXIS for venous thrombosis, systemic embolization; TREATMENT for venous thrombosis and/or pulmonary embolus.HIGH RISK: Target INR is 2.5-3.5 for patients with mechanical heart valves.CBC W/PLT COUNT & AUTO [id number] 01:38:18 Test Item Value Reference Range Interpretation [...] 2801) XR CHEST 1 VIEW PORTABLE / [id number] 01:36:37 [facility] : 1955 Sex: FAP portable chest x-ray. History hypoxia.FINDINGS: There is confluent airspace disease in the left lung anddiffuse severe interstitial opacification of both lungs. The heart sizeis normal.IMPRESSION:Diffuse bilateral pneumonia with pulmonary edema patternalso. Normal heart size. Consider follow-up CT scan of the chest.Electronically Signed By: Jhoan Patel03/06/2023 01:38 CDTWorkstation Name: [id number] 01:24:36 Test Item Value Reference Range Interpretation Comments POC-HEMATOCRIT 17 % 36-45 L : Lactation Specialist/Te chnician ID = (TRAN) (test code = 246560 for DESIRE KING 1856) [id number] 01:24:36 Test Item Value Reference Range Interpretation Comments POC-GLUCOSE (TRAN) 76 mg/dL 70-110 : TESTE D AT [place] [address] (test code = 1855) [place], [address]: Lactation Specialist/Techni patricia ID = [id number] for DESIRE NAYLOR [id number]-[id number] 01:24:35 Test Item Value Reference Range Interpretation Comments POC-HEMOGLOBIN 5.8 g/dL 12.0-15.0 LL : TESTED AT [place] [address] (BEAKER) (test code = [facility], 1856) [address]: Lactation Specialist/Techni patricia ID = [id number] for DESIRE NAYLOR [id number] 01:24:30 Test Item Value Reference Range Interpretation Comments POC-SODIUM ([facility] 138 meq/L 135-148 : TESTED AT [facility] 6720 (test code = 1542) [facility], [address]: Lactation Specialist/Techni patricia ID = [id number] for DESIRE NAYLOR [id number] 01:24:30 Test Item Value Reference Range Interpretation Comments POC-POTASSIUM 3.3 meq/L 3.6-5.5 L : TESTED AT [facility] 6720 (BEAKER) (test code [facility], = 1540) [address]: Lactation Specialist/Techni patricia ID = [id number] for DESIRE NAYLOR POCT-BLOOD GASES, [id number] 01:24:29 Test Item Value Reference Range Interpretation [...] -7.0 meq/L -2.0-3.0 L : TESTED AT [facility] 6720 ARTERIAL-POC [facility], (BEAKER) (test code 223[address]: = 1841) Lactation Specialist/Techni patricia ID = [id number] for DESIRE NAYLOR POCT-GLUCOSE [id number] 00:59:59 Test Item Value Reference Range Interpretation Comments POC-GLUCOSE METER 85 mg/dL 70-110 : TESTED A T [facility] 6720 (BEAKER) (test code = [facility] Estev[place] [facility], 1538) [address]: Lactation Specialist/Techni patricia ID = [id number] for Aracelis Duatre POCT GLUCOSE (AUTOMATED)2022-12-22 16:45:56 Test Item Value Reference Range Interpretation Comments POCT GLU (test code = 7049359068) 137 mg/dL 70-110 H Lab Interpretation (test code = Abnormal 79382-7) [facility]2022-[facility]-22 16:45:56 Test Item Value Reference Range Interpretation Comments POCT GLU (test code = 3340379537) 137 mg/dL 70-110 H Lab Interpretation (test code = Abnormal 17157-3) [facility] GLUCOSE (AUTOMATED)2022-12-22 11:07:25 Test Item Value Reference Range Interpretation Comments POCT GLU (test code = 4048767610) 97 mg/dL 70-110 Lab Interpretation (test code = Normal 91131-9) [facility] GLUCOSE (AUTOMATED)2022-12-22 11:07:25 Test Item Value Reference Range Interpretation Comments POCT GLU (test code = 0151532859) 97 mg/dL 70-110 Lab Interpretation (test code = Normal 77773-0) [facility] GLUCOSE (AUTOMATED)2022-12-22 05:06:33 Test Item Value Reference Range Interpretation Comments POCT GLU (test code = 3565381520) 117 mg/dL 70-110 H Lab Interpretation (test code = Abnormal 19736-9) [facility] GLUCOSE (AUTOMATED)2022-12-22 05:06:33 Test Item Value Reference Range Interpretation Comments POCT GLU (test code = 2999727338) 117 mg/dL 70-110 H Lab Interpretation (test code = Abnormal 61074-4) [facility] GLUCOSE (AUTOMATED)2022-12-21 23:17:30 Test Item Value Reference Range Interpretation Comments POCT GLU (test code = 2089587002) 77 mg/dL 70-110 Lab Interpretation (test code = Normal 25462-3) [facility]2022-12-21 23:17:30 Test Item Value Reference Range Interpretation Comments POCT GLU (test code = 2679437120) 77 mg/dL 70-110 Lab Interpretation (test code = Normal 56918-6) [facility] GLUCOSE (AUTOMATED)2022-12-21 17:17:55 Test Item Value Reference Range Interpretation Comments POCT GLU (test code = 0938269807) 120 mg/dL 70-110 H Lab Interpretation (test code = Abnormal 62845-4) [facility] GLUCOSE (AUTOMATED)2022-12-21 17:17:55 Test Item Value Reference Range Interpretation Comments POCT GLU (test code = 0141779580) 120 mg/dL 70-110 H Lab Interpretation (test code = Abnormal 77748-9) [facility] GLUCOSE (AUTOMATED)2022-12-21 11:10:25 Test Item Value Reference Range Interpretation Comments POCT GLU (test code = 9439311749) 114 mg/dL 70-110 H Lab Interpretation (test code = Abnormal 16293-8) [facility] GLUCOSE (AUTOMATED)2022-12-21 11:10:25 Test Item Value Reference Range Interpretation Comments POCT GLU (test code = 4789120172) 114 mg/dL 70-110 H Lab Interpretation (test code = Abnormal 62794-2) [facility] CULTURE [id number] 11:01:49 Test Item Value Reference Range Interpretation Comments Blood Culture-Aerobic No organisms No growth Previo us (test code = 34753-5) isolated prelim inary verified result was Culture [...] Culture-Anaerobic isolated preliminar y (test code = 45427-1) verifi ed result was Culture In Progress [...] CDT Lab Interpretation Normal (test code = 66127-0) [facility] CULTURE [id number] 11:01:49 Test Item Value Reference Range Interpretation Comments Blood Culture-Aerobic No organisms No growth Previo us (test code = 40400-5) isolated prelim inary verified result was Culture [...] Culture-Anaerobic isolated preliminar y (test code = 48669-2) verifi ed result was Culture In Progress [...] CDT Lab Interpretation Normal (test code = 21806-2) [facility] GLUCOSE (AUTOMATED)2022-12-21 05:17:25 Test Item Value Reference Range Interpretation Comments POCT GLU (test code = 6369227037) 120 mg/dL 70-110 H Lab Interpretation (test code = Abnormal 97928-0) [facility] GLUCOSE (AUTOMATED)2022-12-21 05:17:25 Test Item Value Reference Range Interpretation Comments POCT GLU (test code = 7851864454) 120 mg/dL 70-110 H Lab Interpretation (test code = Abnormal 07394-7) [facility] GLUCOSE (AUTOMATED)2022-12-20 23:02:14 Test Item Value Reference Range Interpretation Comments POCT GLU (test code = 4678903735) 155 mg/dL 70-110 H Lab Interpretation (test code = Abnormal 71911-8) [facility] GLUCOSE (AUTOMATED)2022-12-20 23:02:14 Test Item Value Reference Range Interpretation Comments POCT GLU (test code = 2462493484) 155 mg/dL 70-110 H Lab Interpretation (test code = Abnormal 43141-0) [facility] GLUCOSE (AUTOMATED)2022-12-20 16:58:40 Test Item Value Reference Range Interpretation Comments POCT GLU (test code = 5514891592) 150 mg/dL 70-110 H Lab Interpretation (test code = Abnormal 76991-0) [facility]2022-12-20 16:58:40 Test Item Value Reference Range Interpretation Comments POCT GLU (test code = 4577234037) 150 mg/dL 70-110 H Lab Interpretation (test code = Abnormal 03564-2) [facility] 10:30:39 Test Item Value Reference Range Interpretation Comments MAGNESIUM (test code = 5350048429) 1.7 mg/dL 1.7-2.4 Lab Interpretation (test code = Normal 80081-5) [facility] 10:30[facility]39 Test Item Value Reference Range Interpretation Comments MAGNESIUM (test code = 3253326022) 1.7 mg/dL 1.7-2.4 Lab Interpretation (test code = Normal 36465-8) [facility] (NA, K, CL, CO2, GLUCOSE, BUN, CREATININE, CA)2022-12-20 10:30:38 Test Item Value Reference Range Interpretation Comments NA (test code = 136 mmol/L 135-145 1427339781) K (test code = 4.1 mmol/L 3.5-5.0 3659442885) CL (test code = 101 mmol/L 98-108 8485567081) CO2 TOTAL (test code = 24 mmol/L 23-31 4020393762) AGAP (test code = 11 2-16 3061727674) BUN (test code = 46 mg/dL 7-23 H 3814058324) GLUCOSE (test code = 134 mg/dL 70-110 H 7979168002) CREATININE (test code = 4.18 mg/dL 0.50-1.04 H 5141316792) CALCIUM (test code = 8.5 mg/dL 8.6-10.6 L 3575804405) eGFR (test code = 10.6 mL/min/1.73m2 5991025725) BRAD (test code = BRAD) Association of [...] tests). Lab Interpretation Abnormal (test code = 28599-8) [facility] (NA, K, CL, CO2, GLUCOSE, BUN, CREATININE, CA)2022-12-20 10:30:38 Test Item Value Reference Range Interpretation Comments NA (test code = 136 mmol/L 135-145 6396732686) K (test code = 4.1 mmol/L 3.5-5.0 2352062898) CL (test code = 101 mmol/L 98-108 5728017716) CO2 TOTAL (test code = 24 mmol/L 23-31 0617573384) AGAP (test code = 11 2-16 7294578251) BUN (test code = 46 mg/dL 7-23 H 4084545087) GLUCOSE (test code = 134 mg/dL 70-110 H 7978714820) CREATININE (test code = 4.18 mg/dL 0.50-1.04 H 7661785924) CALCIUM (test code = 8.5 mg/dL 8.6-10.6 L 4143178816) eGFR (test code = 10.6 mL/min/1.73m2 9429803451) BRAD (test code = BRAD) Association of [...] tests). Lab Interpretation Abnormal (test code = 06414-7) [facility] System[facility] PAN[facility] (82092) (ALB,T.PRO,BILI T,BU/BC,ALT,AST,ALK PHOS)2022-12-20 10:30:18 Test Item Value Reference Range Interpretation Comments TOTAL BILI (test code = 2310613419) 0.5 mg/dL 0.1-1.1 BILI UNCON (test code = 4601537677) 0.0 mg/dL 0.1-1.1 L BILI CONJ (test code = 8097984204) 0.0 mg/dL 0.0-0.3 T PROTEIN (test code = 9587584340) 5.9 g/dL 6.3-8.2 L ALBUMIN (test code = 3629072589) 2.9 g/dL 3.5-5.0 L ALK PHOS (test code = 1838881672) 183 U/L 34-122 H ALTv (test code = 1742-6) 10 U/L 5-35 AST(SGOT) (test code = 0720429357) 46 U/L 13-40 H Lab Interpretation (test code = Abnormal 85579-0) [facility]2023-06-14 10:30:18 Test Item Value Reference Range Interpretation Comments PHOSPHORUS (test code = 9370715391) 4.4 mg/dL 2.5-5.0 Lab Interpretation (test code = Normal 25732-4) [facility] System[facility] FUNCTION PANEL (76419) (ALB,T.PRO,BILI T,BU/BC,ALT,AST,ALK PHOS)2022-12-20 10:30:18 Test Item Value Reference Range Interpretation Comments TOTAL BILI (test code = 3417434388) 0.5 mg/dL 0.1-1.1 BILI UNCON (test code = 0793239622) 0.0 mg/dL 0.1-1.1 L BILI CONJ (test code = 5800654357) 0.0 mg/dL 0.0-0.3 T PROTEIN (test code = 0956510482) 5.9 g/dL 6.3-8.2 L ALBUMIN (test code = 0031065433) 2.9 g/dL 3.5-5.0 L ALK PHOS (test code = 7800433572) 183 U/L 34-122 H ALTv (test code = 1742-6) 10 U/L 5-35 AST(SGOT) (test code = 9319926605) 46 U/L 13-40 H Lab Interpretation (test code = Abnormal 67945-1) [facility]2023-06-14 10:30:18 Test Item Value Reference Range Interpretation Comments PHOSPHORUS (test code = 2649900511) 4.4 mg/dL 2.5-5.0 Lab Interpretation (test code = Normal 35632-4) [facility] SystemCBC WITH [id number] 10:01:54 Test Item Value Reference Range Interpretation Comments WBC (test code = 9.51 See_Comment [Automated 7690-2) message] The sy stem which generated this [...] (test code = 51.4 fL 39.0-49.9 H 51284-6) RDW-CV (test code = 15.2 % 12.0-15.5 788-0) PLT (test code = 167 See_Comment [Automated 777-3) message] The sy stem which generated this result transmitted reference range : 166 - 358 10*3/ ?L. The reference r chikis was not used to interpret this result as normal/abnormal . MPV (test code = 9.5 fL 9.5-12.9 04673-5) NRBC/100 WBC (test 0.0 See_Comment [Automat ed code = 0995676039) message] The system which generated this result transmitted reference range : 0.0 - 10.0 /100 WBCs. The refer ence range was not u sed to interpret th is result as normal/abnormal . NRBC x10^3 (test code See_Comment [Auto mated = 9397789665) message] The s ystem which generated this result transmitted reference range : 10*3/?L. The reference range was not used to interpret this result as normal/abnormal . GRAN MAT (NEUT) % 76.9 % (test code = 770-8) IMM GRAN % (test code 1.10 % = 4116686641) LYMPH % (test code = 12.5 % 736-9) MONO % (test code = 6.6 % 5905-5) EOS % (test code = 2.7 % 713-8) BASO % (test code = 0.2 % 706-2) GRAN MAT x10^3(ANC) 7.31 10*3/uL 1.88-7.09 H (test code = [id number]) IMM GRAN x10^3 (test 0.10 10*3/uL 0.00-0.06 H code = [id number]) LYMPH x10^3 (test code 1.19 10*3/uL 1.32-3.29 L = 731-0) MONO x10^3 (test code 0.63 10*3/uL 0.33-0.92 = 742-7) EOS x10^3 (test code = 0.26 10*3/uL 0.03-0.39 711-2) BASO x10^3 (test code 0.01-0.07 = 704-7) Lab Interpretation Abnormal (test code = 42133-2) [facility] [id number] 10:01:54 Test Item Value Reference Range Interpretation Comments WBC (test code = 9.51 See_Comment [Automated 9990-2) message] The sy stem which generated this result transmitted reference range : 4.30 - 11.10 10*3/?L. The reference range was not used to interpret this result as normal/abnormal . RBC (test code = 2.60 See_Comment L [Automated 479-8) message] The sy stem which generated this [...] (test code = 51.4 fL 39.0-49.9 H 92271-0) RDW-CV (test code = 15.2 % 12.0-15.5 788-0) PLT (test code = 167 See_Comment [Automated 777-3) message] The sy stem which generated this result transmitted reference range : 166 - 358 10*3/ ?L. The reference r chikis was not used to interpret this result as normal/abnormal . MPV (test code = 9.5 fL 9.5-12.9 32859-5) NRBC/100 WBC (test 0.0 See_Comment [Automat ed code = 3036281000) message] The system which generated this result transmitted reference range : 0.0 - 10.0 /100 WBCs. The refer ence range was not u sed to interpret th is result as normal/abnormal . NRBC x10^3 (test code See_Comment [Auto mated = 5797066665) message] The s ystem which generated this result transmitted reference range : 10*3/?L. The reference range was not used to interpret this result as normal/abnormal . GRAN MAT (NEUT) % 76.9 % (test code = 770-8) IMM GRAN % (test code 1.10 % = 7170729669) LYMPH % (test code = 12.5 % 736-9) MONO % (test code = 6.6 % 5905-5) EOS % (test code = 2.7 % 713-8) BASO % (test code = 0.2 % 706-2) GRAN MAT x10^3(ANC) 7.31 10*3/uL 1.88-7.09 H (test code = 9051036924) IMM GRAN x10^3 (test 0.10 10*3/uL 0.00-0.06 H code = 6486588057) LYMPH x10^3 (test code 1.19 10*3/uL 1.32-3.29 L = 731-0) MONO x10^3 (test code 0.63 10*3/uL 0.33-0.92 = 742-7) EOS x10^3 (test code = 0.26 10*3/uL 0.03-0.39 711-2) BASO x10^3 (test code 0.01-0.07 = 704-7) Lab Interpretation Abnormal (test code = 68022-8) [facility] GLUCOSE (AUTOMATED)2022-12-20 09:11:49 Test Item Value Reference Range Interpretation Comments POCT GLU (test code = 7673290637) 145 mg/dL 70-110 H Lab Interpretation (test code = Abnormal 88898-1) [facility] GLUCOSE (AUTOMATED)2022-12-20 09:11:49 Test Item Value Reference Range Interpretation Comments POCT GLU (test code = 5710576825) 145 mg/dL 70-110 H Lab Interpretation (test code = Abnormal 99031-7) [facility] GLUCOSE (AUTOMATED)2022-12-20 05:18:45 Test Item Value Reference Range Interpretation Comments POCT GLU (test code = 8714998632) 137 mg/dL 70-110 H Lab Interpretation (test code = Abnormal 75863-4) [facility] GLUCOSE (AUTOMATED)2022-12-20 05:18:45 Test Item Value Reference Range Interpretation Comments POCT GLU (test code = 9745552010) 137 mg/dL 70-110 H Lab Interpretation (test code = Abnormal 81684-6) [facility] GLUCOSE (AUTOMATED)2022-12-19 23:10:55 Test Item Value Reference Range Interpretation Comments POCT GLU (test code = 1105845466) 171 mg/dL 70-110 H Lab Interpretation (test code = Abnormal 90619-2) [facility] GLUCOSE (AUTOMATED)2022-12-19 23:10:55 Test Item Value Reference Range Interpretation Comments POCT GLU (test code = 1254752138) 171 mg/dL 70-110 H Lab Interpretation (test code = Abnormal 30868-9) [facility] GLUCOSE (AUTOMATED)2022-12-19 16:54:04 Test Item Value Reference Range Interpretation Comments POCT GLU (test code = 3240899583) 152 mg/dL 70-110 H Lab Interpretation (test code = Abnormal 29558-0) [facility] GLUCOSE (AUTOMATED)2022-12-19 16:54:04 Test Item Value Reference Range Interpretation Comments POCT GLU (test code = 6228805263) 152 mg/dL 70-110 H Lab Interpretation (test code = Abnormal 33388-8) [facility] 11:09:49 Test Item Value Reference Range Interpretation Comments POCT GLU (test code = 7206269020) 113 mg/dL 70-110 H Lab Interpretation (test code = Abnormal 27685-2) [facility]19 11:09:49 Test Item Value Reference Range Interpretation Comments POCT GLU (test code = 3338194652) 113 mg/dL 70-110 H Lab Interpretation (test code = Abnormal 33561-6) [facility] 05:06:10 Test Item Value Reference Range Interpretation Comments POCT GLU (test code = 1667978574) 131 mg/dL 70-110 H Lab Interpretation (test code = Abnormal 25275-6) [facility] GLUCOSE (AUTOMATED)2022-12-19 05:06:10 Test Item Value Reference Range Interpretation Comments POCT GLU (test code = 6209457699) 131 mg/dL 70-110 H Lab Interpretation (test code = Abnormal 72359-9) [facility]18 22:59:48 Test Item Value Reference Range Interpretation Comments POCT GLU (test code = 9119052137) 133 mg/dL 70-110 H Lab Interpretation (test code = Abnormal 35098-6) [facility] GLUCOSE (AUTOMATED)2022-12-18 22:59:48 Test Item Value Reference Range Interpretation Comments POCT GLU (test code = 1780738292) 133 mg/dL 70-110 H Lab Interpretation (test code = Abnormal 30876-8) [facility] GLUCOSE (AUTOMATED)2022-12-18 16:36:14 Test Item Value Reference Range Interpretation Comments POCT GLU (test code = 5398892190) 171 mg/dL 70-110 H Lab Interpretation (test code = Abnormal 80274-5) [facility] GLUCOSE (AUTOMATED)2022-12-18 16:36:14 Test Item Value Reference Range Interpretation Comments POCT GLU (test code = 0492822356) 171 mg/dL 70-110 H Lab Interpretation (test code = Abnormal 30775-4) [facility] GLUCOSE (AUTOMATED)2022-12-18 10:49:33 Test Item Value Reference Range Interpretation Comments POCT GLU (test code = 1045157944) 116 mg/dL 70-110 H Lab Interpretation (test code = Abnormal 73588-9) [facility] GLUCOSE (AUTOMATED)2022-12-18 10:49:33 Test Item Value Reference Range Interpretation Comments POCT GLU (test code = 7916297635) 116 mg/dL 70-110 H Lab Interpretation (test code = Abnormal 17670-0) [facility] GLUCOSE (AUTOMATED)2022-12-18 05:43:21 Test Item Value Reference Range Interpretation Comments POCT GLU (test code = 2366664194) 119 mg/dL 70-110 H Lab Interpretation (test code = Abnormal 81766-3) [facility] GLUCOSE (AUTOMATED)2022-12-18 05:43:21 Test Item Value Reference Range Interpretation Comments POCT GLU (test code = 9823181837) 119 mg/dL 70-110 H Lab Interpretation (test code = Abnormal 79850-4) [facility] GLUCOSE (AUTOMATED)2022-12-17 23:28:43 Test Item Value Reference Range Interpretation Comments POCT GLU (test code = 7883420857) 102 mg/dL 70-110 Lab Interpretation (test code = Normal 72745-7) [facility] GLUCOSE (AUTOMATED)2022-12-17 23:28:43 Test Item Value Reference Range Interpretation Comments POCT GLU (test code = 1381365133) 102 mg/dL 70-110 Lab Interpretation (test code = Normal 71705-7) [facility] GLUCOSE (AUTOMATED)2022-12-17 17:00:09 Test Item Value Reference Range Interpretation Comments POCT GLU (test code = 2906780029) 135 mg/dL 70-110 H Lab Interpretation (test code = Abnormal 17437-4) [facility] GLUCOSE (AUTOMATED)2022-12-17 17:00:09 Test Item Value Reference Range Interpretation Comments POCT GLU (test code = 7111925952) 135 mg/dL 70-110 H Lab Interpretation (test code = Abnormal 44318-3) [facility] Culture - Peripheral # [id number] 13:40:27 Test Item Value Reference Range Interpretation Comments Blood Culture-Aerobic Culture positive. No growth AA P revious (test code = 19178-6) See Blood Culture p reliminary Workup for verified result additional was Culture In information. Progress on 12/15/2022 at 062 6 CDT Blood Culture positive. No growth AA Previous Culture-Anaerobic See Blood Culture preli minary (test code = 70625-5) Workup for verifi ed result additional was Culture In information. Progress on 12/14/2022 at 220 1 CDT Lab Interpretation Abnormal (test code = 55215-4) [facility] Culture - Peripheral # [id number] 13:40:27 Test Item Value Reference Range Interpretation Comments Blood Culture-Aerobic Culture positive. No growth AA P revious (test code = 87491-6) See Blood Culture p reliminary Workup for verified result additional was Culture In information. Progress on 12/15/2022 at 062 7 CDT Blood Culture positive. No growth AA Previous Culture-Anaerobic See Blood Culture preli minary (test code = 62082-2) Workup for verifi ed result additional was Culture In information. Progress on 12/14/2022 at 220 1 CDT Lab Interpretation Abnormal (test code = 80228-9) [facility] CULTURE [id number] 13:40:27 Test Item Value Reference Range Interpretation Comments Blood Culture Staphylococcus aureus Organ ism identified Workup (test by DNA probeFor code = 600-7) susceptibility results, refer to culture # - [id number] Gram stain Isolated from aerobic This i s an appended (test code = bottle Gram positive report. These 664-3) cocci results have be en appended to a previously preliminary wesley ified report. [facility] Culture - Peripheral # [id number] 13:40:27 Test Item Value Reference Range Interpretation Comments Blood Culture-Aerobic Culture positive. No growth AA P revious (test code = 17888-7) See Blood Culture p reliminary Workup for verified result additional was Culture In information. Progress on 12/15/2022 at 062 6 CDT Blood Culture positive. No growth AA Previous Culture-Anaerobic See Blood Culture preli minary (test code = 29743-4) Workup for verifi ed result additional was Culture In information. Progress on 12/14/2022 at 220 1 CDT Lab Interpretation Abnormal (test code = 68605-1) [facility] Culture - Peripheral # 13:40:27 Test Item Value Reference Range Interpretation Comments Blood Culture-Aerobic Culture positive. No growth AA P revious (test code = 30420-3) See Blood Culture p reliminary Workup for verified result additional was Culture In information. Progress on 12/15/2022 at 062 7 CDT Blood Culture positive. No growth AA Previous Culture-Anaerobic See Blood Culture preli minary (test code = 11111-4) Workup for verifi ed result additional was Culture In information. Progress on 12/14/2022 at 220 1 CDT Lab Interpretation Abnormal (test code = 80912-0) [facility] CULTURE [id number] 13:40:27 Test Item Value Reference Range Interpretation Comments Blood Culture Staphylococcus aureus Organ ism identified Workup (test by DNA probeFor code = 600-7) susceptibility results, refer to culture # - [id number] Gram stain Isolated from aerobic This i s an appended (test code = bottle Gram positive report. These 664-3) cocci results have be en appended to a previously preliminary wesley ified report. [facility] GLUCOSE (AUTOMATED)2022-12-17 10:41:20 Test Item Value Reference Range Interpretation Comments POCT GLU (test code = 7511073115) 92 mg/dL 70-110 Lab Interpretation (test code = Normal 86122-1) [facility] GLUCOSE (AUTOMATED)2022-12-17 10:41:20 Test Item Value Reference Range Interpretation Comments POCT GLU (test code = 9276246792) 92 mg/dL 70-110 Lab Interpretation (test code = Normal 60331-4) [facility] GLUCOSE (AUTOMATED)2022-12-17 04:21:25 Test Item Value Reference Range Interpretation Comments POCT GLU (test code = 2349639563) 122 mg/dL 70-110 H Lab Interpretation (test code = Abnormal 82633-2) [facility] GLUCOSE (AUTOMATED)2022-12-17 04:21:25 Test Item Value Reference Range Interpretation Comments POCT GLU (test code = 5389931151) 122 mg/dL 70-110 H Lab Interpretation (test code = Abnormal 62710-3) [facility] GLUCOSE (AUTOMATED)2022-12-16 23:26:05 Test Item Value Reference Range Interpretation Comments POCT GLU (test code = 5755618284) 113 mg/dL 70-110 H Lab Interpretation (test code = Abnormal 97806-7) [facility] GLUCOSE (AUTOMATED)2022-12-16 23:26:05 Test Item Value Reference Range Interpretation Comments POCT GLU (test code = 9107988327) 113 mg/dL 70-110 H Lab Interpretation (test code = Abnormal 61267-6) [facility] GLUCOSE (AUTOMATED)2022-12-16 16:43:54 Test Item Value Reference Range Interpretation Comments POCT GLU (test code = 7750294382) 77 mg/dL 70-110 Lab Interpretation (test code = Normal 58764-2) [facility] GLUCOSE (AUTOMATED)2022-12-16 16:43:54 Test Item Value Reference Range Interpretation Comments POCT GLU (test code = 5124793590) 77 mg/dL 70-110 Lab Interpretation (test code = Normal 80637-3) [facility] [id number] 11:41:12 Test Item Value Reference Range Interpretation Comments TROPONIN I (test code = 0.106 ng/mL <=0.034 H 5946850788) BRAD (test code = BRAD) Reference (Normal) [...] biotin. Lab Interpretation Abnormal (test code = 31716-5) [facility] [id number] 11:41:12 Test Item Value Reference Range Interpretation Comments TROPONIN I (test code = 0.106 ng/mL <=0.034 H 6994885715) BRAD (test code = BRAD) Reference (Normal) [...] biotin. Lab Interpretation Abnormal (test code = 11599-4) [facility] METABOLIC PANEL (NA, K, CL, CO2, GLUCOSE, BUN, CREATININE, CA)2022-12-16 11:40:31 Test Item Value Reference Range Interpretation Comments NA (test code = 139 mmol/L 135-145 2199422652) K (test code = 3.6 mmol/L 3.5-5.0 8444306143) CL (test code = 104 mmol/L 98-108 4841446873) CO2 TOTAL (test code = 25 mmol/L 23-31 6416306780) AGAP (test code = 10 2-16 2891431701) BUN (test code = 30 mg/dL 7-23 H 7740591572) GLUCOSE (test code = 83 mg/dL 70-110 5136256655) CREATININE (test code = 3.06 mg/dL 0.50-1.04 H 8893003560) CALCIUM (test code = 9.0 mg/dL 8.6-10.6 0124652610) eGFR (test code = 15.3 mL/min/1.73m2 6808674684) BRAD (test code = BRAD) Association of [...] tests). Lab Interpretation Abnormal (test code = 92186-9) [facility] (NA, K, CL, CO2, GLUCOSE, BUN, CREATININE, CA)2022-12-16 11:40:31 Test Item Value Reference Range Interpretation Comments NA (test code = 139 mmol/L 135-145 9531971531) K (test code = 3.6 mmol/L 3.5-5.0 1252559118) CL (test code = 104 mmol/L 98-108 0776761585) CO2 TOTAL (test code = 25 mmol/L 23-31 8650315893) AGAP (test code = 10 2-16 3717046629) BUN (test code = 30 mg/dL 7-23 H 4037181337) GLUCOSE (test code = 83 mg/dL 70-110 0629827630) CREATININE (test code = 3.06 mg/dL 0.50-1.04 H 9312357068) CALCIUM (test code = 9.0 mg/dL 8.6-10.6 6084086686) eGFR (test code = 15.3 mL/min/1.73m2 6966300328) BRAD (test code = BRAD) Association of [...] tests). Lab Interpretation Abnormal (test code = 39921-5) [facility] [id number] 11:40:16 Test Item Value Reference Range Interpretation Comments VANCO RANDOM (test code = 18.0 ug/mL 1501637724) [facility] [id number] 11:40:16 Test Item Value Reference Range Interpretation Comments VANCO RANDOM (test code = 18.0 ug/mL 2739535912) [facility]98605[facility] (ALB,T.PRO,BILI T,BU/BC,ALT,AST,ALK PHOS)2022-12-16 11:39:51 Test Item Value Reference Range Interpretation Comments TOTAL BILI (test code = 9748032180) 0.8 mg/dL 0.1-1.1 BILI UNCON (test code = 4549712182) 0.1 mg/dL 0.1-1.1 BILI CONJ (test code = 1266981599) 0.0 mg/dL 0.0-0.3 T PROTEIN (test code = 6718713729) 5.4 g/dL 6.3-8.2 L ALBUMIN (test code = 4729480237) 2.5 g/dL 3.5-5.0 L ALK PHOS (test code = 1304965769) 155 U/L 34-122 H ALTv (test code = 1742-6) 19 U/L 5-35 AST(SGOT) (test code = 9979942056) 30 U/L 13-40 Lab Interpretation (test code = Abnormal 11154-5) [facility] (94706[facility] (ALB,T.PRO,BILI T,BU/BC,ALT,AST,ALK PHOS)2022-12-16 11:39:51 Test Item Value Reference Range Interpretation Comments TOTAL BILI (test code = 6680422393) 0.8 mg/dL 0.1-1.1 BILI UNCON (test code = 7356100420) 0.1 mg/dL 0.1-1.1 BILI CONJ (test code = 6356707898) 0.0 mg/dL 0.0-0.3 T PROTEIN (test code = 0888414125) 5.4 g/dL 6.3-8.2 L ALBUMIN (test code = 8303951275) 2.5 g/dL 3.5-5.0 L ALK PHOS (test code = 9071812763) 155 U/L 34-122 H ALTv (test code = 1742-6) 19 U/L 5-35 AST(SGOT) (test code = 9657319802) 30 U/L 13-40 Lab Interpretation (test code = Abnormal 04596-4) [facility] GLUCOSE (AUTOMATED)2022-12-16 11:15:55 Test Item Value Reference Range Interpretation Comments POCT GLU (test code = 0361322383) 94 mg/dL 70-110 Lab Interpretation (test code = Normal 65615-7) [facility] GLUCOSE (AUTOMATED)2022-12-16 11:15:55 Test Item Value Reference Range Interpretation Comments POCT GLU (test code = 1550648791) 94 mg/dL 70-110 Lab Interpretation (test code = Normal 13550-7) [facility]2022-12-16 10:38:42 Test Item Value Reference Range Interpretation Comments HBsAB (test code = Indeterminate 3694241520) HBsAb 8.40 mIU/mL Semi-Quantitative (test code = 3056958292) BRAD (test code = Unable to determine if BRAD) antibody to Hepatitis B Surface Antigen is present at levels consistent with immunity. ?Patient's immune status should be assessed with other clinical information and/or retesting in 4-6 weeks as clinically indicated. ?If any questions, please contact Clinical Chemistry Director front maker lockstitch at .Interpretati on: ?Hepatitis B Surface Antibody ? Negative - Patient is considered to be not immune to infection with HBV. ? ? Positive - Anti-HBs detected at greater than or equal to 12 mIU/mL. ?Patient is considered to be immune to infection with HBV. ? [facility]2022-12-16 10:38:42 Test Item Value Reference Range Interpretation Comments HBsAB (test code = Indeterminate 9322015588) HBsAb 8.40 mIU/mL Semi-Quantitative (test code = 6991003040) BRAD (test code = Unable to determine if BRAD) antibody to Hepatitis B Surface Antigen is present at levels consistent with immunity. ?Patient's immune status should be assessed with other clinical information and/or retesting in 4-6 weeks as clinically indicated. ?If any questions, please contact Clinical Chemistry Director front maker lockstitch at .Interpretati on: ?Hepatitis B Surface Antibody ? Negative - Patient is considered to be not immune to infection with HBV. ? ? Positive - Anti-HBs detected at greater than or equal to 12 mIU/mL. ?Patient is considered to be immune to infection with HBV. ? [facility] WITH [id number] 10:21:46 Test Item Value Reference Range Interpretation Comments WBC (test code = 15.75 See_Comment H [Automated 0208-2) message] The system which generated this result transmit matthew reference range : 4.30 - 11.10 10*3/?L. The reference range was not used to interpret this result as normal/abnormal . RBC (test code = 2.60 See_Comment L [Automated 672-8) message] The system which generated this result [...] (test code = 52.0 fL 39.0-49.9 H 96163-1) RDW-CV (test code = 15.7 % 12.0-15.5 H 788-0) PLT (test code = 144 See_Comment L [Automated 777-3) message] The system which generated this result transmit matthew reference range : 166 - 358 10*3/ ?L. The reference range was not u sed to interpret th is result as normal/abnormal . MPV (test code = 9.4 fL 9.5-12.9 L 89161-8) NRBC/100 WBC (test 0.0 See_Comment [Automat ed code = 6832730194) message] The system which generated this result transmit matthew reference range : 0.0 - 10.0 /100 WBCs. The reference range was not used to interpret this result as normal/abnormal . NRBC x10^3 (test code See_Comment [Auto mated = 1934721389) message] The system which generated this result transmit matthew reference range : 10*3/?L. The reference range was not used to interpret this result as normal/abnormal . GRAN MAT (NEUT) % 88.9 % (test code = 770-8) IMM GRAN % (test code 0.80 % = 2166189682) LYMPH % (test code = 5.8 % 736-9) MONO % (test code = 3.6 % 5905-5) EOS % (test code = 0.8 % 713-8) BASO % (test code = 0.1 % 706-2) GRAN MAT x10^3(ANC) 13.99 10*3/uL 1.88-7.09 H (test code = 5786960771) IMM GRAN x10^3 (test 0.13 10*3/uL 0.00-0.06 H code = 8731231287) LYMPH x10^3 (test code 0.92 10*3/uL 1.32-3.29 L = 731-0) MONO x10^3 (test code 0.56 10*3/uL 0.33-0.92 = 742-7) EOS x10^3 (test code = 0.13 10*3/uL 0.03-0.39 711-2) BASO x10^3 (test code 0.01-0.07 = 704-7) Lab Interpretation Abnormal (test code = 32605-4) [facility] WITH [id number] 10:21:46 Test Item Value Reference Range Interpretation [...] (test code = 52.0 fL 39.0-49.9 H 37531-3) RDW-CV (test code = 15.7 % 12.0-15.5 H 788-0) PLT (test code = 144 See_Comment L [Automated 777-3) message] The system which generated this result transmit matthew reference range : 166 - 358 10*3/ ?L. The reference range was not u sed to interpret th is result as normal/abnormal . MPV (test code = 9.4 fL 9.5-12.9 L 42414-9) NRBC/100 WBC (test 0.0 See_Comment [Automat ed code = 0168578467) message] The system which generated this result transmit matthew reference range : 0.0 - 10.0 /100 WBCs. The reference range was not used to interpret this result as normal/abnormal . NRBC x10^3 (test code See_Comment [Auto mated = 1224485940) message] The system which generated this result transmit matthew reference range : 10*3/?L. The reference range was not used to interpret this result as normal/abnormal . GRAN MAT (NEUT) % 88.9 % (test code = 770-8) IMM GRAN % (test code 0.80 % = 5814784720) LYMPH % (test code = 5.8 % 736-9) MONO % (test code = 3.6 % 5905-5) EOS % (test code = 0.8 % 713-8) BASO % (test code = 0.1 % 706-2) GRAN MAT x10^3(ANC) 13.99 10*3/uL 1.88-7.09 H (test code = 2641690034) IMM GRAN x10^3 (test 0.13 10*3/uL 0.00-0.06 H code = 5474595006) LYMPH x10^3 (test code 0.92 10*3/uL 1.32-3.29 L = 731-0) MONO x10^3 (test code 0.56 10*3/uL 0.33-0.92 = 742-7) EOS x10^3 (test code = 0.13 10*3/uL 0.03-0.39 711-2) BASO x10^3 (test code 0.01-0.07 = 704-7) Lab Interpretation Abnormal (test code = 46898-8) [facility]22-[facility]-16 06:57:04 Test Item Value Reference Range Interpretation Comments HBsAg Semi-Quantitative (test code = 0.06 Negative 5195-3) [facility]2022-12-16 06:57:04 Test Item Value Reference Range Interpretation Comments HBsAg Semi-Quantitative (test code = 0.06 Negative 5195-3) [facility] GLUCOSE (AUTOMATED)2022-12-16 05:30:23 Test Item Value Reference Range Interpretation Comments POCT GLU (test code = 2318217890) 75 mg/dL 70-110 Lab Interpretation (test code = Normal 23125-3) [facility] GLUCOSE (AUTOMATED)2022-12-16 05:30:23 Test Item Value Reference Range Interpretation Comments POCT GLU (test code = 0237919693) 75 mg/dL 70-110 Lab Interpretation (test code = Normal 95171-1) [facility] [id number] 23:05:10 Test Item Value Reference Range Interpretation Comments TROPONIN I (test code = 0.088 ng/mL <=0.034 H 9621200371) BRAD (test code = BRAD) Reference (Normal) [...] biotin. Lab Interpretation Abnormal (test code = 62870-4) [facility] [id number] 23:05:10 Test Item Value Reference Range Interpretation Comments TROPONIN I (test code = 0.088 ng/mL <=0.034 H 8892283324) BRAD (test code = BRAD) Reference (Normal) [...] biotin. Lab Interpretation Abnormal (test code = 55060-5) [facility] GLUCOSE (AUTOMATED)2022-12-15 23:02:20 Test Item Value Reference Range Interpretation Comments POCT GLU (test code = 3167071862) 166 mg/dL 70-110 H Lab Interpretation (test code = Abnormal 78549-0) [facility] GLUCOSE (AUTOMATED)2022-12-15 23:02:20 Test Item Value Reference Range Interpretation Comments POCT GLU (test code = 8013229673) 166 mg/dL 70-110 H Lab Interpretation (test code = Abnormal 13191-0) [facility] Packed RBC (in units), 1 Units 2022-12-15 22:05:53 Test Item Value Reference Range Interpretation Comments Cross Match Result Compatible (test code = 4409) ISBT Blood Type Code 6200 (test code = 809473) Unit Blood Type (test A Pos code = 4410) Unit Number (test [id number] code = 4411) Blood Expiration Date & Time (test code = 380664) Status Information Issued (test code = 4412) Product Red Blood Cells Identification (test code = 4413) Product Code (test I1662P25 Performed at [facility] code = 4414) Laboratory Services - [facility] [address] [place] [id number] Free: [phone] A No. [id number] [facility] Packed RBC (in units), 1 Units 2022-12-15 22:05:53 Test Item Value Reference Range Interpretation Comments Cross Match Result Compatible (test code = 4409) ISBT Blood Type Code 6200 (test code = 967446) Unit Blood Type (test A Pos code = 4410) Unit Number (test [id number] code = 4411) Blood Expiration Date & Time (test code = 741312) Status Information Issued (test code = 4412) Product Red Blood Cells Identification (test code = 4413) Product Code (test [id number] Performed at [facility] code = 4414) Laboratory Services - [facility] Blood [address] [place] [phone] Free: [phone] A No. [id number] [facility] POSITIVE BLOOD PATHOGENS DNA [id number] 21:12:06 Test Item Value Reference Range Interpretation Comments Staphylococcus aureus Positive Negative, See A (test code = 38071-9) Comment/Narrativ e mecA (test code = Negative Negative, See 02162-5) Comment/Narrativ e BRAD (test code = BRAD) MSSA detected by DNA probe. ?See blood culture result for additional susceptibilityInformati on. Preferred therapies for MSSA ?bacteremia are nafcillin or cefazolin.Infectious Diseases consultation recommended. Please contact the Antimicrobial Stewardship Program with questions.ASP Pager: ?[phone] Testing included eleven identification and three resistance marker targets. See blood culture result for additional information. Testing included eleven identification and three resistancemarker targets. Lab Interpretation Abnormal (test code = 90434-2) [facility] POSITIVE BLOOD PATHOGENS DNA [id number] 21:12:06 Test Item Value Reference Range Interpretation Comments Staphylococcus aureus Positive Negative, See A (test code = 97142-8) Comment/Narrativ e mecA (test code = Negative Negative, See 05759-1) Comment/Narrativ e RBAD (test code = BRAD) MSSA detected by DNA probe. ?See blood culture result for additional susceptibilityInformati on. Preferred therapies for MSSA ?bacteremia are nafcillin or cefazolin.Infectious Diseases consultation recommended. Please contact the Antimicrobial Stewardship Program with questions.ASP Pager: ?[phone] Testing included eleven identification and three resistance marker targets. See blood culture result for additional information. Testing included eleven identification and three resistancemarker targets. Lab Interpretation Abnormal (test code = 45458-5) [facility] GLUCOSE (AUTOMATED)2022-12-15 17:59:51 Test Item Value Reference Range Interpretation Comments POCT GLU (test code = 9278013441) 88 mg/dL 70-110 Lab Interpretation (test code = Normal 22851-2) [facility] GLUCOSE (AUTOMATED)2022-12-15 17:59:51 Test Item Value Reference Range Interpretation Comments POCT GLU (test code = 9473957939) 88 mg/dL 70-110 Lab Interpretation (test code = Normal 90960-9) [facility] [id number] 12:38:38 Test Item Value Reference Range Interpretation Comments NT-proBNP (test code = 81137 pg/mL <=125 H 5820359882) BRAD (test code = BRAD) Biotin has been reported to cause a negative bias, interpret results relative to patient's use of biotin. Lab Interpretation (test Abnormal code = 12855-1) [facility] [id number] 12:38:38 Test Item Value Reference Range Interpretation Comments NT-proBNP (test code = 91822 pg/mL <=125 H 2068191185) BRAD (test code = BRAD) Biotin has been reported to cause a negative bias, interpret results relative to patient's use of biotin. Lab Interpretation (test Abnormal code = 20974-1) [facility] WITH [id number] 12:16:32 Test Item Value Reference Range Interpretation Comments WBC (test code = 29.95 See_Comment H [Automated 2890-2) message] The system which generated this result transmitted reference range : 4.30 - 11.10 10*3/?L. The reference range was not used to interpret this result as normal/abnormal . RBC (test code = 2.56 See_Comment L [Automated 439-8) message] The system which generated this result [...] (test code = 51.8 fL 39.0-49.9 H 06700-0) RDW-CV (test code = 15.6 % 12.0-15.5 H 788-0) PLT (test code = 174 See_Comment [Automated 777-3) message] The system which generated this result transmitted reference range : 166 - 358 10*3/?L. The reference range was not used to interpret this result as normal/abnormal . MPV (test code = 9.0 fL 9.5-12.9 L 04374-9) NRBC/100 WBC (test 0.0 See_Comment [Automat ed code = 4264454935) message] The system which generated this result transmitted reference range : 0.0 - 10.0 /100 WBCs. The reference range was not used to interpret this result as normal/abnormal . NRBC x10^3 (test code See_Comment [Auto mated = 3446500966) message] The system which generated this result transmitted reference range : 10*3/?L. The reference range was not used to interpret this result as normal/abnormal . GRAN MAT (NEUT) % 94.9 % (test code = 770-8) IMM GRAN % (test code 0.90 % = 7700039737) LYMPH % (test code = 1.3 % 736-9) MONO % (test code = 2.4 % 5905-5) EOS % (test code = 0.2 % 713-8) BASO % (test code = 0.3 % 706-2) GRAN MAT x10^3(ANC) 28.43 10*3/uL 1.88-7.09 H (test code = 5761686359) IMM GRAN x10^3 (test 0.27 10*3/uL 0.00-0.06 H code = 9565444742) LYMPH x10^3 (test 0.38 10*3/uL 1.32-3.29 L code = 731-0) MONO x10^3 (test code 0.72 10*3/uL 0.33-0.92 = 742-7) EOS x10^3 (test code 0.07 10*3/uL 0.03-0.39 = 711-2) BASO x10^3 (test code 0.08 10*3/uL 0.01-0.07 H = 704-7) POLYCHROMASIA (test 2+ See_Comment [Automa matthew code = 48431-0) message] The system which generated this result transmitted reference range : 2+. The referen ce range was not used to interpr et this result as normal/abnormal . BANDS (test code = MARKED INCREASED A 9537306923) DOHLE BODIES (test Present A code = 7792-5) TOXIC CHANGES (test Present A code = 803-7) GIANT PLATELETS (test Present See_Comment A [Auto mated code = 5908-9) message] The system which generated this result transmitted reference range : (none). The reference range was not used to interpret this result as normal/abnormal . Lab Interpretation Abnormal (test code = 52183-3) [facility] WITH [id number] 12:16:32 Test Item Value Reference Range Interpretation Comments WBC (test code = 29.95 See_Comment H [Automated 3390-2) message] The system which generated this result transmitted reference range : 4.30 - 11.10 10*3/?L. The reference range was not used to interpret this result as normal/abnormal . RBC (test code = 2.56 See_Comment L [Automated 046-8) message] The system which generated this result [...] (test code = 51.8 fL 39.0-49.9 H 15188-8) RDW-CV (test code = 15.6 % 12.0-15.5 H 788-0) PLT (test code = 174 See_Comment [Automated 777-3) message] The system which generated this result transmitted reference range : 166 - 358 10*3/?L. The reference range was not used to interpret this result as normal/abnormal . MPV (test code = 9.0 fL 9.5-12.9 L 93425-8) NRBC/100 WBC (test 0.0 See_Comment [Automat ed code = 2257640025) message] The system which generated this result transmitted reference range : 0.0 - 10.0 /100 WBCs. The reference range was not used to interpret this result as normal/abnormal . NRBC x10^3 (test code See_Comment [Auto mated = 1334624722) message] The system which generated this result transmitted reference range : 10*3/?L. The reference range was not used to interpret this result as normal/abnormal . GRAN MAT (NEUT) % 94.9 % (test code = 770-8) IMM GRAN % (test code 0.90 % = 9189754233) LYMPH % (test code = 1.3 % 736-9) MONO % (test code = 2.4 % 5905-5) EOS % (test code = 0.2 % 713-8) BASO % (test code = 0.3 % 706-2) GRAN MAT x10^3(ANC) 28.43 10*3/uL 1.88-7.09 H (test code = 1882079536) IMM GRAN x10^3 (test 0.27 10*3/uL 0.00-0.06 H code = 8363579754) LYMPH x10^3 (test 0.38 10*3/uL 1.32-3.29 L code = 731-0) MONO x10^3 (test code 0.72 10*3/uL 0.33-0.92 = 742-7) EOS x10^3 (test code 0.07 10*3/uL 0.03-0.39 = 711-2) BASO x10^3 (test code 0.08 10*3/uL 0.01-0.07 H = 704-7) POLYCHROMASIA (test 2+ See_Comment [Automa matthew code = 23643-7) message] The system which generated this result transmitted reference range : 2+. The referen ce range was not used to interpr et this result as normal/abnormal . BANDS (test code = MARKED INCREASED A 3830059166) DOHLE BODIES (test Present A code = 7792-5) TOXIC CHANGES (test Present A code = 803-7) GIANT PLATELETS (test Present See_Comment A [Auto mated code = 5908-9) message] The system which generated this result transmitted reference range : (none). The reference range was not used to interpret this result as normal/abnormal . Lab Interpretation Abnormal (test code = 33574-7) [facility] [id number] 12:05:11 Test Item Value Reference Range Interpretation Comments TROPONIN I (test code = 0.096 ng/mL <=0.034 H 5486048924) BRAD (test code = BRAD) Reference (Normal) [...] biotin. Lab Interpretation Abnormal (test code = 05882-8) [facility] [id number] 12:05:11 Test Item Value Reference Range Interpretation Comments TROPONIN I (test code = 0.096 ng/mL <=0.034 H 7508308399) BRAD (test code = BRAD) Reference (Normal) [...] biotin. Lab Interpretation Abnormal (test code = 05514-2) [facility] (NA, K, CL, CO2, GLUCOSE, BUN, CREATININE, CA)2022-12-15 11:53:07 Test Item Value Reference Range Interpretation Comments NA (test code = 139 mmol/L 135-145 5623635077) K (test code = 3.6 mmol/L 3.5-5.0 8450962836) CL (test code = 104 mmol/L 98-108 3426593098) CO2 TOTAL (test code = 19 mmol/L 23-31 L 5781510299) AGAP (test code = 16 2-16 5079130703) BUN (test code = 41 mg/dL 7-23 H 9704531111) GLUCOSE (test code = 85 mg/dL 70-110 5134947180) CREATININE (test code = 3.85 mg/dL 0.50-1.04 H 6234523918) CALCIUM (test code = 8.9 mg/dL 8.6-10.6 1485009976) eGFR (test code = 11.7 mL/min/1.73m2 3020990430) BRAD (test code = BRAD) Association of [...] tests). Lab Interpretation Abnormal (test code = 57584-3) [facility] 11:53:07 Test Item Value Reference Range Interpretation Comments MAGNESIUM (test code = 8004101272) 1.9 mg/dL 1.7-2.4 Lab Interpretation (test code = Normal 94367-2) [facility] (NA, K, CL, CO2, GLUCOSE, BUN, CREATININE, CA)2022-12-15 11:53:07 Test Item Value Reference Range Interpretation Comments NA (test code = 139 mmol/L 135-145 1611322893) K (test code = 3.6 mmol/L 3.5-5.0 2110929516) CL (test code = 104 mmol/L 98-108 8437355079) CO2 TOTAL (test code = 19 mmol/L 23-31 L 8803909054) AGAP (test code = 16 2-16 3220568056) BUN (test code = 41 mg/dL 7-23 H 0295349789) GLUCOSE (test code = 85 mg/dL 70-110 7262697457) CREATININE (test code = 3.85 mg/dL 0.50-1.04 H 3061393070) CALCIUM (test code = 8.9 mg/dL 8.6-10.6 7058150631) eGFR (test code = 11.7 mL/min/1.73m2 2231822427) BRAD (test code = BRAD) Association of [...] tests). Lab Interpretation Abnormal (test code = 93672-1) [facility] 11:53:07 Test Item Value Reference Range Interpretation Comments MAGNESIUM (test code = 7487624367) 1.9 mg/dL 1.7-2.4 Lab Interpretation (test code = Normal 99239-4) [facility] 11:52:47 Test Item Value Reference Range Interpretation Comments PHOSPHORUS (test code = 4240911692) 4.8 mg/dL 2.5-5.0 Lab Interpretation (test code = Normal 44951-7) [facility]23[facility] 11:52:47 Test Item Value Reference Range Interpretation Comments PHOSPHORUS (test code = 7445524789) 4.8 mg/dL 2.5-5.0 Lab Interpretation (test code = Normal 66724-4) [facility] 11:52:06 Test Item Value Reference Range Interpretation Comments LIPASE (test code = 0562304241) 39 U/L 0-220 Lab Interpretation (test code = Normal 50434-5) [facility] 11:52:06 Test Item Value Reference Range Interpretation Comments LIPASE (test code = 2836316052) 39 U/L 0-220 Lab Interpretation (test code = Normal 01120-2) [facility] GLUCOSE (AUTOMATED)2022-12-15 10:44:05 Test Item Value Reference Range Interpretation Comments POCT GLU (test code = 4486912965) 95 mg/dL 70-110 Lab Interpretation (test code = Normal 42795-9) [facility] GLUCOSE (AUTOMATED)2022-12-15 10:44:05 Test Item Value Reference Range Interpretation Comments POCT GLU (test code = 8056932642) 95 mg/dL 70-110 Lab Interpretation (test code = Normal 41907-8) [facility] [id number] 07:17:20 Test Item Value Reference Range Interpretation Comments LACTIC ACID (test code = 1.81 mmol/L 0.50-2.20 9978181215) Lab Interpretation (test code = Normal 75880-1) [facility] [id number] 07:17:20 Test Item Value Reference Range Interpretation Comments LACTIC ACID (test code = 1.81 mmol/L 0.50-2.20 8443249198) Lab Interpretation (test code = Normal 58341-4) [facility] GLUCOSE (AUTOMATED)2022-12-15 05:00:50 Test Item Value Reference Range Interpretation Comments POCT GLU (test code = 6999693395) 122 mg/dL 70-110 H Lab Interpretation (test code = Abnormal 50005-9) [facility] GLUCOSE (AUTOMATED)2022-12-15 05:00:50 Test Item Value Reference Range Interpretation Comments POCT GLU (test code = 3421542346) 122 mg/dL 70-110 H Lab Interpretation (test code = Abnormal 16068-5) [facility] Test Item Value Reference Range Interpretation Comments MAGNESIUM (test code = 6036541746) 2.0 mg/dL 1.7-2.4 Lab Interpretation (test code = Normal 40046-1) [facility] 04:49:26 Test Item Value Reference Range Interpretation Comments MAGNESIUM (test code = 1659864020) 2.0 mg/dL 1.7-2.4 Lab Interpretation (test code = Normal 96614-0) [facility] [id number] 00:09:11 Test Item Value Reference Range Interpretation Comments NT-proBNP (test code = 12884 pg/mL <=125 H 2321949409) BRAD (test code = BRAD) Biotin has been reported to cause a negative bias, interpret results relative to patient's use of biotin. Lab Interpretation (test Abnormal code = 81890-9) [facility] [id number] 00:09:11 Test Item Value Reference Range Interpretation Comments NT-proBNP (test code = 46234 pg/mL <=125 H 2412863224) BRAD (test code = BRAD) Biotin has been reported to cause a negative bias, interpret results relative to patient's use of biotin. Lab Interpretation (test Abnormal code = 31383-5) [facility] [id number] 23:53:13 Test Item Value Reference Range Interpretation Comments TROPONIN I (test code = 0.049 ng/mL <=0.034 H 9510149117) BRAD (test code = BRAD) Reference (Normal) [...] biotin. Lab Interpretation Abnormal (test code = 60405-1) [facility] [id number] 23:53:13 Test Item Value Reference Range Interpretation Comments TROPONIN I (test code = 0.049 ng/mL <=0.034 H 4337422721) BRAD (test code = BRAD) Reference (Normal) [...] biotin. Lab Interpretation Abnormal (test code = 25320-8) [facility] (71043)2022-12-14 23:39:49 Test Item Value Reference Range Interpretation Comments NA (test code = 138 mmol/L 135-145 8108509098) K (test code = 3.3 mmol/L 3.5-5.0 L 5246467110) CL (test code = 100 mmol/L 98-108 3820076113) CO2 TOTAL (test code = 24 mmol/L 23-31 4283978427) AGAP (test code = 14 2-16 2684439568) BUN (test code = 34 mg/dL 7-23 H 8926953470) GLUCOSE (test code = 225 mg/dL 70-110 H 6916211537) CREATININE (test code = 3.54 mg/dL 0.50-1.04 H 8656171092) TOTAL BILI (test code = 0.9 mg/dL 0.1-1.9 2820545019) CALCIUM (test code = 9.3 mg/dL 8.6-10.6 7632089226) T PROTEIN (test code = 6.4 g/dL 6.3-8.2 7569888315) ALBUMIN (test code = 3.2 g/dL 3.5-5.0 L 8688458367) ALK PHOS (test code = 162 U/L 34-122 H 9949720107) ALTv (test code = 19 U/L 35 1742-6) AST(SGOT) (test code = 24 U/L 13-40 6483700962) eGFR (test code = 12.9 mL/min/1.73m2 8286779896) BRAD (test code = BRAD) Association of [...] tests). Lab Interpretation Abnormal (test code = 59436-8) [facility] (15425)2022-12-14 23:39:49 Test Item Value Reference Range Interpretation Comments NA (test code = 138 mmol/L 135-145 3115051250) K (test code = 3.3 mmol/L 3.5-5.0 L 9668358145) CL (test code = 100 mmol/L 98-108 0811536310) CO2 TOTAL (test code = 24 mmol/L 23-31 4996860883) AGAP (test code = 14 2-16 2946264667) BUN (test code = 34 mg/dL 7-23 H 2791837666) GLUCOSE (test code = 225 mg/dL 70-110 H 2646046083) CREATININE (test code = 3.54 mg/dL 0.50-1.04 H 6865801079) TOTAL BILI (test code = 0.9 mg/dL 0.1-1.9 3747071945) CALCIUM (test code = 9.3 mg/dL 8.6-10.6 2811183500) T PROTEIN (test code = 6.4 g/dL 6.3-8.2 4201070655) ALBUMIN (test code = 3.2 g/dL 3.5-5.0 L 5697716295) ALK PHOS (test code = 162 U/L 34-122 H 4713802576) ALTv (test code = 19 U/L 5-35 1742-6) AST(SGOT) (test code = 24 U/L 13-40 6613815046) eGFR (test code = 12.9 mL/min/1.73m2 8737660090) BRAD (test code = BRAD) Association of [...] tests). Lab Interpretation Abnormal (test code = 27804-4) [facility] 23:39:08 Test Item Value Reference Range Interpretation Comments LIPASE (test code = 9984569552) 414 U/L 0-220 H Lab Interpretation (test code = Abnormal 22293-2) [facility] 23:39:08 Test Item Value Reference Range Interpretation Comments LIPASE (test code = 4120541610) 414 U/L 0-220 H Lab Interpretation (test code = Abnormal 14724-8) [facility] [id number] 23:28:05 Test Item Value Reference Range Interpretation [...] (test code = 50.1 fL 39.0-49.9 H 73008-3) RDW-CV (test code = 15.0 % 12.0-15.5 788-0) PLT (test code = 207 See_Comment [Automated 777-3) message] The system which generated this result transmit matthew reference range : 166 - 358 10*3/ ?L. The reference range was not u sed to interpret th is result as normal/abnormal . MPV (test code = 9.0 fL 9.5-12.9 L 00948-3) NRBC/100 WBC (test 0.0 See_Comment [Automat ed code = 3733776613) message] The system which generated this result transmit matthew reference range : 0.0 - 10.0 /100 WBCs. The reference range was not used to interpret this result as normal/abnormal . NRBC x10^3 (test code See_Comment [Auto mated = 7106355318) message] The system which generated this result transmit matthew reference range : 10*3/?L. The reference range was not used to interpret this result as normal/abnormal . GRAN MAT (NEUT) % 95.6 % (test code = 770-8) IMM GRAN % (test code 0.60 % = 1407645315) LYMPH % (test code = 1.9 % 736-9) MONO % (test code = 1.0 % 5905-5) EOS % (test code = 0.7 % 713-8) BASO % (test code = 0.2 % 706-2) GRAN MAT x10^3(ANC) 14.21 10*3/uL 1.88-7.09 H (test code = 2040589472) IMM GRAN x10^3 (test 0.09 10*3/uL 0.00-0.06 H code = 2334929818) LYMPH x10^3 (test code 0.29 10*3/uL 1.32-3.29 L = 731-0) MONO x10^3 (test code 0.15 10*3/uL 0.33-0.92 L = 742-7) EOS x10^3 (test code = 0.11 10*3/uL 0.03-0.39 711-2) BASO x10^3 (test code 0.03 10*3/uL 0.01-0.07 = 704-7) Lab Interpretation Abnormal (test code = 80046-8) [facility] WITH [id number] 23:28:05 Test Item Value Reference Range Interpretation [...] (test code = 50.1 fL 39.0-49.9 H 11808-3) RDW-CV (test code = 15.0 % 12.0-15.5 788-0) PLT (test code = 207 See_Comment [Automated 777-3) message] The system which generated this result transmit matthew reference range : 166 - 358 10*3/ ?L. The reference range was not u sed to interpret th is result as normal/abnormal . MPV (test code = 9.0 fL 9.5-12.9 L 98663-4) NRBC/100 WBC (test 0.0 See_Comment [Automat ed code = 2755130787) message] The system which generated this result transmit matthew reference range : 0.0 - 10.0 /100 WBCs. The reference range was not used to interpret this result as normal/abnormal . NRBC x10^3 (test code See_Comment [Auto mated = 5718842581) message] The system which generated this result transmit matthew reference range : 10*3/?L. The reference range was not used to interpret this result as normal/abnormal . GRAN MAT (NEUT) % 95.6 % (test code = 770-8) IMM GRAN % (test code 0.60 % = 5211157505) LYMPH % (test code = 1.9 % 736-9) MONO % (test code = 1.0 % 5905-5) EOS % (test code = 0.7 % 713-8) BASO % (test code = 0.2 % 706-2) GRAN MAT x10^3(ANC) 14.21 10*3/uL 1.88-7.09 H (test code = 5324640431) IMM GRAN x10^3 (test 0.09 10*3/uL 0.00-0.06 H code = 8602948027) LYMPH x10^3 (test code 0.29 10*3/uL 1.32-3.29 L = 731-0) MONO x10^3 (test code 0.15 10*3/uL 0.33-0.92 L = 742-7) EOS x10^3 (test code = 0.11 10*3/uL 0.03-0.39 711-2) BASO x10^3 (test code 0.03 10*3/uL 0.01-0.07 = 704-7) Lab Interpretation Abnormal (test code = 84029-3) [facility] [id number] 22:59:07 Test Item Value Reference Range Interpretation Comments LACTIC ACID (test code = 1.80 mmol/L 0.50-2.20 0846570481) Lab Interpretation (test code = Normal 62355-7) [facility] [id number] 22:59:07 Test Item Value Reference Range Interpretation Comments LACTIC ACID (test code = 1.80 mmol/L 0.50-2.20 5963971150) Lab Interpretation (test code = Normal 78949-2) [facility] GLUCOSE (AUTOMATED)2022-12-14 22:56:50 Test Item Value Reference Range Interpretation Comments POCT GLU (test code = 9619533357) 235 mg/dL 70-110 H Lab Interpretation (test code = Abnormal 40983-6) [facility] GLUCOSE (AUTOMATED)2022-12-14 22:56:50 Test Item Value Reference Range Interpretation Comments POCT GLU (test code = 1816175914) 235 mg/dL 70-110 H Lab Interpretation (test code = Abnormal 08310-9) [facility] GLUCOSE (AUTOMATED)2022-11-07 21:58:54 Test Item Value Reference Range Interpretation Comments POCT GLU (test code = 4494146889) 184 mg/dL 70-110 H Lab Interpretation (test code = Abnormal 93710-2) [facility] GLUCOSE (AUTOMATED)2022-11-07 16:45:57 Test Item Value Reference Range Interpretation Comments POCT GLU (test code = 2331437338) 196 mg/dL 70-110 H Lab Interpretation (test code = Abnormal 26843-5) [facility] GLUCOSE (AUTOMATED)2022-11-07 13:12:51 Test Item Value Reference Range Interpretation Comments POCT GLU (test code = 8860119213) 164 mg/dL 70-110 H Lab Interpretation (test code = Abnormal 71791-0) [facility] (H[facility]Ab)2022-11-06 23:00:28 Test Item Value Reference Range Interpretation Comments HBsAB (test code = Indeterminate 0362186485) HBsAb 6.20 mIU/mL Semi-Quantitative (test code = 6542530483) BRAD (test code = Unable to determine if BRAD) antibody to Hepatitis B Surface Antigen is present at levels consistent with immunity. ?Patient's immune status should be assessed with other clinical information and/or retesting in 4-6 weeks as clinically indicated. ?If any questions, please contact Clinical Chemistry Director front maker lockstitch at .Interpretati on: ?Hepatitis B Surface Antibody ? Negative - Patient is considered to be not immune to infection with HBV. ? ? Positive - Anti-HBs detected at greater than or equal to 12 mIU/mL. ?Patient is considered to be immune to infection with HBV. ? [facility] GLUCOSE (AUTOMATED)2022-11-06 21:40:13 Test Item Value Reference Range Interpretation Comments POCT GLU (test code = 5208477510) 180 mg/dL 70-110 H Lab Interpretation (test code = Abnormal 90900-4) [facility] B Surface Antigen (HBsAg)2022-11-06 20:40:07 Test Item Value Reference Range Interpretation Comments HBsAg Semi-Quantitative (test code = 0.21 Negative 5195-3) [facility] GLUCOSE (AUTOMATED)2022-11-06 16:28:02 Test Item Value Reference Range Interpretation Comments POCT GLU (test code = 6391704336) 177 mg/dL 70-110 H Lab Interpretation (test code = Abnormal 46711-9) [id number] 15:24:24 Test Item Value Reference Range Interpretation Comments TROPONIN I (test code = 0.047 ng/mL <=0.034 H 6986463579) BRAD (test code = BRAD) Reference (Normal) [...] biotin. Lab Interpretation Abnormal (test code = 86673-0) [facility] GLUCOSE (AUTOMATED)2022-11-06 12:43:24 Test Item Value Reference Range Interpretation Comments POCT GLU (test code = 4486629058) 158 mg/dL 70-110 H Lab Interpretation (test code = Abnormal 27075-9) [facility] GLUCOSE (AUTOMATED)2022-11-06 01:41:32 Test Item Value Reference Range Interpretation Comments POCT GLU (test code = 4942997979) 218 mg/dL 70-110 H Lab Interpretation (test code = Abnormal 18092-2) [facility] GLUCOSE (AUTOMATED)2022-11-05 22:03:11 Test Item Value Reference Range Interpretation Comments POCT GLU (test code = 8911676045) 156 mg/dL 70-110 H Lab Interpretation (test code = Abnormal 06508-6) [facility] GLUCOSE (AUTOMATED)2022-11-05 16:40:51 Test Item Value Reference Range Interpretation Comments POCT GLU (test code = 6286823577) 197 mg/dL 70-110 H Lab Interpretation (test code = Abnormal 17469-9) [facility] 12:59:19 Test Item Value Reference Range Interpretation Comments POCT GLU (test code = 0392532197) 126 mg/dL 70-110 H Lab Interpretation (test code = Abnormal 95834-2) [facility] [id number] 02:54:06 Test Item Value Reference Range Interpretation Comments TSH (test code = 2.59 See_Comment Biotin has been 4413873194) reported to cau se a negative bias, interpret resul ts relative to pat elianasae's use of biotin. [Automated mess age] The system [employer] generated this result transmitted ref erence range: 0.45 - 4 .70 mIU/L. The refe rence range was not u sed to interpret this result as normal/abnor mal. Lab Interpretation (test Normal code = 25029-7) [facility] [id number] 02:00:37 Test Item Value Reference Range Interpretation Comments FREE T4 (test code = 1.57 See_Comment [Autom ated message] 9544379930) The system [employer] generated this result transmitted ref erence range: 0.78 - 2 .20 ng/dL:. The ref erence range was not u sed to interpret this result as normal/abnor mal. Lab Interpretation (test Normal code = 87480-9) [facility] [id number] 02:00:17 Test Item Value Reference Range Interpretation Comments FREE T3 (test code = 3872856790) 3.61 pg/mL 2.77-5.27 Lab Interpretation (test code = Normal 29812-7) [facility] (A1C)2022-11-05 01:49:39 Test Item Value Reference Range Interpretation Comments HGB A1C (test code = 4.7 % 4.0-5.7 4548-4) BRAD (test code = BRAD) Reference RangesNormal: <5.7%Prediabetes: 5.7 - 6.4%Diabetes: > 6.5% Lab Interpretation (test Normal code = 67590-2) [facility] [id number] 21:11:09 Test Item Value Reference Range Interpretation Comments CK (test code = 9113193917) 24 U/L 33-194 L Lab Interpretation (test code = Abnormal 63888-9) [facility] [id number] 21:01:09 Test Item Value Reference Range Interpretation Comments NT-proBNP (test code = 58027 pg/mL <=125 H 7770546825) BRAD (test code = BRAD) Biotin has been reported to cause a negative bias, interpret results relative to patient's use of biotin. Lab Interpretation (test Abnormal code = 16268-5) [facility] [id number] 20:42:28 Test Item Value Reference Range Interpretation Comments TROPONIN I (test code = 0.054 ng/mL <=0.034 H 2388004906) BRAD (test code = BRAD) Reference (Normal) [...] biotin. Lab Interpretation Abnormal (test code = 47713-8) [facility] METABOLIC PANEL (26830)2022-11-04 20:32:09 Test Item Value Reference Range Interpretation Comments NA (test code = 138 mmol/L 135-145 8708865189) K (test code = 3.0 mmol/L 3.5-5.0 L 5902899364) CL (test code = 106 mmol/L 98-108 4716281013) CO2 TOTAL (test code = 26 mmol/L 23-31 0480065391) AGAP (test code = 6 2-16 3202375096) BUN (test code = 18 mg/dL 7-23 6069831619) GLUCOSE (test code = 119 mg/dL 70-110 H 3013385223) CREATININE (test code = 2.18 mg/dL 0.50-1.04 H 8883323555) TOTAL BILI (test code = 0.6 mg/dL 0.1-1.3 1201330169) CALCIUM (test code = 9.2 mg/dL 8.6-10.6 3433738748) T PROTEIN (test code = 5.9 g/dL 6.3-8.2 L 5889856945) ALBUMIN (test code = 3.1 g/dL 3.5-5.0 L 1587529813) ALK PHOS (test code = 124 U/L 34-122 H 1319301490) ALTv (test code = 16 U/L 5-35 1742-6) AST(SGOT) (test code = 18 U/L 13-40 0134264783) eGFR (test code = 22.6 mL/min/1.73m2 7457133536) BRAD (test code = BRAD) Association of [...] tests). Lab Interpretation Abnormal (test code = 73680-1) [facility]2023-04-29 20:32:09 Test Item Value Reference Range Interpretation Comments MAGNESIUM (test code = 1891737484) 2.1 mg/dL 1.7-2.4 Lab Interpretation (test code = Normal 07711-2) [facility]OS[facility]ORUS2023-04-29 20:31:49 Test Item Value Reference Range Interpretation Comments PHOSPHORUS (test code = 7137976824) 3.7 mg/dL 2.5-5.0 Lab Interpretation (test code = Normal 09194-1) [facility] SystemCB WITH [id number] 20:19:25 Test Item Value Reference Range Interpretation Comments WBC (test code = 6.70 See_Comment [Automated 0990-2) message] The sy stem which generated this [...] (test code = 57.7 fL 39.0-49.9 H 87029-7) RDW-CV (test code = 16.7 % 12.0-15.5 H 788-0) PLT (test code = 235 See_Comment [Automated 777-3) message] The sy stem which generated this result transmitted reference range : 166 - 358 10*3/ ?L. The reference r chikis was not used to interpret this result as normal/abnormal . MPV (test code = 9.2 fL 9.5-12.9 L 95821-4) NRBC/100 WBC (test 0.0 See_Comment [Automat ed code = 0858968198) message] The system which generated this result transmitted reference range : 0.0 - 10.0 /100 WBCs. The refer ence range was not u sed to interpret th is result as normal/abnormal . NRBC x10^3 (test code See_Comment [Auto mated = 3381988534) message] The s ystem which generated this result transmitted reference range : 10*3/?L. The reference range was not used to interpret this result as normal/abnormal . GRAN MAT (NEUT) % 74.2 % (test code = 770-8) IMM GRAN % (test code 0.30 % = 1121783127) LYMPH % (test code = 12.4 % 736-9) MONO % (test code = 9.1 % 5905-5) EOS % (test code = 3.6 % 713-8) BASO % (test code = 0.4 % 706-2) GRAN MAT x10^3(ANC) 4.97 10*3/uL 1.88-7.09 (test code = 7000147965) IMM GRAN x10^3 (test 0.00-0.06 code = 1393280735) LYMPH x10^3 (test code 0.83 10*3/uL 1.32-3.29 L = 731-0) MONO x10^3 (test code 0.61 10*3/uL 0.33-0.92 = 742-7) EOS x10^3 (test code = 0.24 10*3/uL 0.03-0.39 711-2) BASO x10^3 (test code 0.03 10*3/uL 0.01-0.07 = 704-7) Lab Interpretation Abnormal (test code = 58299-4) [facility] [id number] 15:54:00 Test Item Value Reference Range Interpretation Comments GLUCOSE BEDSIDE (test 122 MG/DL 70-110 H Perfor med by certified code = GLUBED) 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[facility] GLUCOSE [id number] 12:13:00 Test Item Value Reference Range Interpretation Comments GLUCOSE BEDSIDE (test 156 MG/DL 70-110 H Perfor med by certified code = GLUBED) 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[facility] GLUCOSE [id number] 10:42:00 Test Item Value Reference Range Interpretation Comments GLUCOSE BEDSIDE (test 181 MG/DL 70-110 H Perfor med by certified code = GLUBED) 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[facility] GLUCOSE [id number] 20:05:00 Test Item Value Reference Range Interpretation Comments GLUCOSE BEDSIDE (test 90 MG/DL 70-110 N Perfor med by certified code = GLUBED) 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[facility] GLUCOSE [id number] 15:46:00 Test Item Value Reference Range Interpretation Comments GLUCOSE BEDSIDE (test 212 MG/DL 70-110 H Perfor med by certified code = GLUBED) 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[facility] GLUCOSE [id number] 12:44:00 Test Item Value Reference Range Interpretation Comments GLUCOSE BEDSIDE (test 120 MG/DL 70-110 H Perfor med by certified code = GLUBED) 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[facility] BASIC METABOLIC [id number] 08:34:00 Test Item Value Reference Range Interpretation [...] code = 9.5 mg/dL 8.0-10.5 N CA) [id number] 08:34:00 Test Item Value Reference Range Interpretation Comments PHOSPHOROUS (test code = PHOS) 2.3 MG/DL 2.5-4.9 L [id number] 08:34:00 Test Item Value Reference Range Interpretation Comments MAGNESIUM (test code = MAG) 2.18 mg/dL 1.80-2.40 N [id number] 08:29:00 Test Item Value Reference Range Interpretation Comments VANCOMYCIN (test code = VANCO) 20.2 mcg/mL CBC W/AUTO [id number] 08:27:00 Test Item Value Reference Range Interpretation [...] REQUIRED (test code NO = MDIFF) CALCIUM [id number] 08:20:00 Test Item Value Reference Range Interpretation Comments CALCIUM IONIZED (test code = AMILCAR) 1.21 MMOL/L 1.09-1.30 N GLUCOSE [id number] 05:39:00 Test Item Value Reference Range Interpretation Comments GLUCOSE BEDSIDE (test 175 MG/DL 70-110 H Perfor med by certified code = GLUBED) 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[facility] GLUCOSE [id number] 20:49:00 Test Item Value Reference Range Interpretation Comments GLUCOSE BEDSIDE (test 167 MG/DL 70-110 H Perfor med by certified code = GLUBED) 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[facility] GLUCOSE [id number] 17:03:00 Test Item Value Reference Range Interpretation Comments GLUCOSE BEDSIDE (test 127 MG/DL 70-110 H Perfor med by certified code = GLUBED) 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[facility] GLUCOSE [id number] 11:54:00 Test Item Value Reference Range Interpretation Comments GLUCOSE BEDSIDE (test 177 MG/DL 70-110 H Perfor med by certified code = GLUBED) 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[facility] GLUCOSE [id number] 06:39:00 Test Item Value Reference Range Interpretation Comments GLUCOSE BEDSIDE (test 153 MG/DL 70-110 H Perfor med by certified code = GLUBED) 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[facility] GLUCOSE [id number] 19:51:00 Test Item Value Reference Range Interpretation Comments GLUCOSE BEDSIDE (test 165 MG/DL 70-110 H Perfor med by certified code = GLUBED) 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[facility] GLUCOSE [id number] 17:15:00 Test Item Value Reference Range Interpretation Comments GLUCOSE BEDSIDE (test 188 MG/DL 70-110 H Perfor med by certified code = GLUBED) 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[facility] GLUCOSE [id number] 12:16:00 Test Item Value Reference Range Interpretation Comments GLUCOSE BEDSIDE (test 132 MG/DL 70-110 H Perfor med by certified code = GLUBED) 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[facility] GLUCOSE [id number] 10:20:00 Test Item Value Reference Range Interpretation Comments GLUCOSE BEDSIDE (test 131 MG/DL 70-110 H Perfor med by certified code = GLUBED) 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[facility] CBC W/AUTO [id number] 08:33:00 Test Item Value Reference Range Interpretation [...] (test code NO = MDIFF) BASIC METABOLIC [id number] 07:37:00 Test Item Value Reference Range Interpretation [...] code = 10.1 mg/dL 8.0-10.5 N CA) [id number] 07:37:00 Test Item Value Reference Range Interpretation Comments PHOSPHOROUS (test code = PHOS) 3.4 MG/DL 2.5-4.9 N [id number] 07:37:00 Test Item Value Reference Range Interpretation Comments MAGNESIUM (test code = MAG) 2.31 mg/dL 1.80-2.40 [id number] 06:49:00 Test Item Value Reference Range Interpretation Comments VANCOMYCIN (test code = VANCO) 19.9 mcg/mL GLUCOSE [id number] 06:17:00 Test Item Value Reference Range Interpretation Comments GLUCOSE BEDSIDE (test 173 MG/DL 70-110 H Perfor med by certified code = GLUBED) 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[facility] - NM BONE 3 [id number] 00:00:00 [facility] : 1955 Sex: F FAX: Delmy Howell [phone] [place]: St: ADM FAX: Kasey Ochoa MD [phone] FAX: Jim Mazariegos MD [phone] FAX: Adonis Canchola MD [phone] Name: MESERET MOTTA [facility] : 1955 Age/S: 67/F [address] [place] [address] Unit #: [id number] Loc: G.[address] [place] [address] Phys: Kasey Mendez MD Acct: [id number] Dis Date: Status: ADM IN PHONE #: [phone] Exam Date: 2 1506 FAX #: [phone] Reason: left foot ulcers EXAMS: CPT CODE: [id number] NM BONE 3 PHASE 51974ILNVAYTUP INFORMATION: Exam: NM Bone and/or Joint, 3 [...] 1 Signed Report (CONTINUED) FAX: Delmy Howell [phone] [place]: St: ADM FAX: Kasey Ochoa MD [phone] FAX: Jim Mazariegos MD [phone] FAX: Adonis Canchola MD [phone] Name: MESERET MOTTA [facility] : 1955 Age/S: 67/F [address] [place] [address] Unit #: [id number] Loc: G.[address] [place] [address] Phys: Kasey Mendez MD Acct: [id number] Dis Date: Status: ADM IN PHONE #: [phone] Exam Date: 07/04/2022 1506 FAX #: [phone] Reason: left foot ulcers EXAMS: CPT CODE: [id number] NM BONE 3 PHASE 96823 (Continued) noted on the left foot plain radiographs. at 1850 Reported and signed by: Gus Moura M.D.CC: Delmy Ashton MD; Kasey Mendez MD; Jim Dhillon MD; Adonis Gaytan MD Technologist: Joss Cobb, ARRT (N)(CT); ... Trnscrd Date/Time/By: 07/04/2022 (1849) : By: [email or web address] Orig Print D/T: S: 07/04/2022 (1849) PAGE 2 Signed ReportGLUCOSE [id number] 20:34:00 Test Item Value Reference Range Interpretation Comments GLUCOSE BEDSIDE (test 167 MG/DL 70-110 H Perfor med by certified code = GLUBED) 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[facility] GLUCOSE [id number] 15:58:00 Test Item Value Reference Range Interpretation Comments GLUCOSE BEDSIDE (test 131 MG/DL 70-110 H Perfor med by certified code = GLUBED) 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[facility] GLUCOSE [id number] 11:38:00 Test Item Value Reference Range Interpretation Comments GLUCOSE BEDSIDE (test 202 MG/DL 70-110 H Perfor med by certified code = GLUBED) 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[facility] BASIC METABOLIC [id number] 08:17:00 Test Item Value Reference Range Interpretation [...] the recommended for bhumika for GFRby the [facility] for Adults.The GFR will not calculate if th e sex is unknown or if thepatient's ag e is <18 years. CREATININE (test 4.5 mg/dL 0.6-1.3 H code = CREAT) CALCIUM (test code = 9.2 mg/dL 8.0-10.5 N CA) CBC W/AUTO [id number] 07:54:00 Test Item Value Reference Range Interpretation [...] REQUIRED (test code NO = MDIFF) GLUCOSE [id number] 05:40:00 Test Item Value Reference Range Interpretation Comments GLUCOSE BEDSIDE (test 170 MG/DL 70-110 H Perfor med by certified code = GLUBED) 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[facility] GLUCOSE [id number] 19:15:00 Test Item Value Reference Range Interpretation Comments GLUCOSE BEDSIDE (test 154 MG/DL 70-110 H Perfor med by certified code = GLUBED) 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[facility] GLUCOSE [id number] 17:40:00 Test Item Value Reference Range Interpretation Comments GLUCOSE BEDSIDE (test 134 MG/DL 70-110 H Perfor med by certified code = GLUBED) 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[facility] GLUCOSE [id number] 11:39:00 Test Item Value Reference Range Interpretation Comments GLUCOSE BEDSIDE (test 156 MG/DL 70-110 H Perfor med by certified code = GLUBED) 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[facility] GLUCOSE [id number] 08:37:00 Test Item Value Reference Range Interpretation Comments GLUCOSE BEDSIDE (test 222 MG/DL 70-110 H Perfor med by certified code = GLUBED) 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[facility] BASIC METABOLIC [id number] 06:58:00 Test Item Value Reference Range Interpretation [...] the recommended for bhumika for GFRby the [facility] for Adults.The GFR will not calculate if th e sex is unknown or if thepatient's ag e is <18 years. CREATININE (test 3.4 mg/dL 0.6-1.3 H code = CREAT) CALCIUM (test code = 9.0 mg/dL 8.0-10.5 N CA) [id number] 06:58:00 Test Item Value Reference Range Interpretation Comments PHOSPHOROUS (test code = PHOS) 3.0 MG/DL 2.5-4.9 [id number] 06:58:00 Test Item Value Reference Range Interpretation Comments MAGNESIUM (test code = MAG) 1.89 mg/dL 1.80-2.40 N CALCIUM [id number] 06:58:00 Test Item Value Reference Range Interpretation Comments CALCIUM IONIZED (test code = AMILCAR) 1.11 MMOL/L 1.09-1.30 N CBC W/AUTO [id number] 06:47:00 Test Item Value Reference Range Interpretation [...] REQUIRED (test code NO = MDIFF) GLUCOSE [id number] 21:27:00 Test Item Value Reference Range Interpretation Comments GLUCOSE BEDSIDE (test 224 MG/DL 70-110 H Perfor med by certified code = GLUBED) 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[facility] GLUCOSE [id number] 16:50:00 Test Item Value Reference Range Interpretation Comments GLUCOSE BEDSIDE (test 174 MG/DL 70-110 H Perfor med by certified code = GLUBED) 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[facility] BASIC METABOLIC [id number] 15:03:00 Test Item Value Reference Range Interpretation [...] mg/dL 8.0-10.5 N CA) POC ARTERIAL BLOOD [id number] 14:28:00 Test Item Value Reference Range Interpretation Comments POC ARTERIAL BLOOD GAS PH (test 7.343 7.35-7.45 L code = POCPHA) POC ARTERIAL BLOOD GAS PCO2 (test 47.7 mmHg 35.0-45 H code = EGQAGJ0D) POC TCO2 ARTERIAL (test code = 27.4 POCTCO2) POC ARTERIAL BLOOD GAS PO2 (test 105.9 mmHg 80-100.0 H code = BLLIP2X) POC HCO3 ARTERIAL (test code = 25.9 MMOL/L 22.0-26.0 N AROHOG6Z) POC BASE EXCESS (test code = 0.2 MMOL/L -4.0-4.0 N POCBEA) POC O2 SATURATION (test code = 97.7 % 90-100 N POCO2S) BASIC METABOLIC [id number] 14:28:00 Test Item Value Reference Range Interpretation [...] = POCGLU) 188 MG/DL 70-110 H HEMOGLOBIN [id number] 14:28:00 Test Item Value Reference Range Interpretation Comments HEMOGLOBIN ABG (test code = 10.0 G/DL 11.0-15.0 L HGB/ABG) [id number] 14:28:00 Test Item Value Reference Range Interpretation Comments HEMATOCRIT (test code = HCT/ABG) 29 % 33.0-45.0 L POC LACTIC [id number] 14:28:00 Test Item Value Reference Range Interpretation Comments POC LACTIC ACID (test code = 1.3 mmol/l 0.9-1.7 N POCLAC) GLUCOSE [id number] 14:10:00 Test Item Value Reference Range Interpretation Comments GLUCOSE BEDSIDE (test 182 MG/DL 70-110 H Perfor med by certified code = GLUBED) 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[facility] GLUCOSE [id number] 10:38:00 Test Item Value Reference Range Interpretation Comments GLUCOSE BEDSIDE (test 251 MG/DL 70-110 H Perfor med by certified code = GLUBED) 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[facility] [id number] 08:07:00 Test Item Value Reference Range Interpretation Comments VANCOMYCIN (test code = VANCO) 22.4 mcg/mL COMMENTS: order make up clerk: draw vanc level before dialysis on Sunday 07/01BASIC METABOLIC [id number] 07:58:00 Test Item Value Reference Range Interpretation [...] the recommended for bhumika for GFRby the [facility] for Adults.The GFR will not calculate if th e sex is unknown or if thepatient's ag e is <18 years. CREATININE (test 4.7 mg/dL 0.6-1.3 H code = CREAT) CALCIUM (test code = 9.7 mg/dL 8.0-10.5 N CA) [id number] 07:58:00 Test Item Value Reference Range Interpretation Comments PHOSPHOROUS (test code = PHOS) 4.6 MG/DL 2.5-4.9 N [id number] 07:58:00 Test Item Value Reference Range Interpretation Comments MAGNESIUM (test code = MAG) 2.20 mg/dL 1.80-2.40 N CBC W/AUTO [id number] 07:39:00 Test Item Value Reference Range Interpretation [...] REQUIRED (test code NO = MDIFF) GLUCOSE [id number] 05:20:00 Test Item Value Reference Range Interpretation Comments GLUCOSE BEDSIDE (test 148 MG/DL 70-110 H Perfor med by certified code = GLUBED) 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[facility] - XR CHEST 1 [id number] 00:00:00 [facility] : 1955 Sex: F FAX: Delmy Howell [phone] [place]: St: ADM FAX: Serge Shetty MD FAX: Jim Mazariegos MD [phone] FAX: Adonis Canchola MD [phone] Name: MESERET MOTTA [facility] : 1955 Age/S: 67/F [address] [place] [address] Blvd Unit #: [id number] Loc: G.[address] [place] [address] Phys: Serge Shetty MD Acct: [id number] Dis Date: Status: ADM IN PHONE #: [phone] Exam Date: 07/01/2022 1537 FAX #:[phone] Reason: hypoxia EXAMS: CPT CODE: [id number] XR CHEST 1 V 35579 PROCEDURE INFORMATION: Exam: XR Chest Exam date [...] (1740) PAGE 1 Signed Report- US PELVIS [id number] 00:00:00 [facility]: MESERET MOTTA : 1955 Sex: F Name: MESERET MOTTA [facility] [place] : 1955 Age/S: 67 / F [address] [place] [address] Blvd Unit #: [id number] Loc: [place] [address] Phys: Adonis Gaytan MD Acct: [id number] Dis Date: Status: ADM IN PHONE #: [phone] Exam Date: 07/01/2022 1406 FAX #: [phone] Reason: DUB...2 weeks of bleedingafter 16 years of men EXAMS: CPT CODE: [id number] US PELVIS COMPLETE 25945 PROCEDURE INFORMATION: Exam: US Pelvis Complete, Transabdominal [...] Adonis Gaytan MD Technologist: Karol Quinn RDMS(AB)(OB) Trnilb Date/Time: 07/01/2022 (1432) t.TTV Orig Print D/T: S: 07/01/2022 (0260) Pro be: PAGE 1 Signed Report- US TRANSVAGINAL NON [id number] 00:00:00 [facility] : 1955 Sex: F Name: MESERET MOTTA [facility] : 1955 Age/S: 67 / F [address] [place] [address] Unit #: [id number] Loc: [place] [address] Phys: Adonis Gaytan MD Acct: [id number] Dis Date: Status: ADM IN PHONE #: [phone] Exam Date: 07/01/2022 1407 FAX #: [phone] Reason: see US Pelvic Non OB Complete EXAMS: CPT CODE: [id number] [place] [address] PROCEDURE INFORMATION: Exam: US Pelvis Complete, Transabdominal [...] Orig Print D/T: S: 07/01/2022 (1434) Probe: [id number] 1 Signed ReportGLUCOSE [id number] 19:48:00 Test Item Value Reference Range Interpretation Comments GLUCOSE BEDSIDE (test 143 MG/DL 70-110 H Perfor med by certified code = GLUBED) 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[facility] GLUCOSE [id number] 18:11:00 Test Item Value Reference Range Interpretation Comments GLUCOSE BEDSIDE (test 152 MG/DL 70-110 H Perfor med by certified code = GLUBED) 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[facility] GLUCOSE [id number] 13:24:00 Test Item Value Reference Range Interpretation Comments GLUCOSE BEDSIDE (test 120 MG/DL 70-110 H [facility] by certified code = GLUBED) 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[facility] BASIC METABOLIC [id number] 09:03:00 Test Item Value Reference Range Interpretation [...] the recommended for bhumika for GFRby the [facility] [facility].The GFR will not calculate if th e sex is unknown or if thepatient's ag e is <18 years. CREATININE (test 4.1 mg/dL 0.6-1.3 H code = CREAT) CALCIUM (test code = 9.6 mg/dL 8.0-10.5 N CA) CBC W/AUTO [id number] 07:48:00 Test Item Value Reference Range Interpretation [...] REQUIRED (test NO code = MDIFF) GLUCOSE [id number] 20:09:00 Test Item Value Reference Range Interpretation Comments GLUCOSE BEDSIDE (test 172 MG/DL 70-110 H Perfor med by certified code = GLUBED) 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[facility] GLUCOSE [id number] 15:48:00 Test Item Value Reference Range Interpretation Comments GLUCOSE BEDSIDE (test 108 MG/DL 70-110 N Perfor med by certified code = GLUBED) 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[facility] GLUCOSE [id number] 11:35:00 Test Item Value Reference Range Interpretation Comments GLUCOSE BEDSIDE (test 172 MG/DL 70-110 H Perfor med by certified code = GLUBED) 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[facility] GLUCOSE [id number] 08:25:00 Test Item Value Reference Range Interpretation Comments GLUCOSE BEDSIDE (test 186 MG/DL 70-110 H Perfor med by certified code = GLUBED) 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[facility] BASIC METABOLIC [id number] 07:50:00 Test Item Value Reference Range Interpretation [...] code = 9.3 mg/dL 8.0-10.5 N CA) [id number] 07:50:00 Test Item Value Reference Range Interpretation Comments PHOSPHOROUS (test code = PHOS) 5.5 MG/DL 2.5-4.9 H [id number] 07:50:00 Test Item Value Reference Range Interpretation Comments MAGNESIUM (test code = MAG) 2.32 mg/dL 1.80-2.40 N CBC W/AUTO [id number] 07:28:00 Test Item Value Reference Range Interpretation [...] REQUIRED (test code NO = MDIFF) GLUCOSE [id number] 19:59:00 Test Item Value Reference Range Interpretation Comments GLUCOSE BEDSIDE (test 141 MG/DL 70-110 H Perfor med by certified code = GLUBED) 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[facility] GLUCOSE [id number] 18:58:00 Test Item Value Reference Range Interpretation Comments GLUCOSE BEDSIDE (test 156 MG/DL 70-110 H Perfor med by certified code = GLUBED) 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[facility] GLUCOSE [id number] 11:35:00 Test Item Value Reference Range Interpretation Comments GLUCOSE BEDSIDE (test 112 MG/DL 70-110 H Perfor med by certified code = GLUBED) 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[facility] GLUCOSE [id number] 09:19:00 Test Item Value Reference Range Interpretation Comments GLUCOSE BEDSIDE (test 167 MG/DL 70-110 H Perfor med by certified code = GLUBED) 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[facility] BASIC METABOLIC [id number] 08:14:00 Test Item Value Reference Range Interpretation [...] 9.1 mg/dL 8.0-10.5 N CA) BASIC METABOLIC [id number] 06:43:00 Test Item Value Reference Range Interpretation [...] be done morning of Heart CathCBC W/AUTO [id number] 06:23:00 Test Item Value Reference Range Interpretation [...] To be done morning of Heart CathGLUCOSE [id number] 21:04:00 Test Item Value Reference Range Interpretation Comments GLUCOSE BEDSIDE (test 99 MG/DL 70-110 N Perfor med by certified code = GLUBED) 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[facility] GLUCOSE [id number] 16:53:00 Test Item Value Reference Range Interpretation Comments GLUCOSE BEDSIDE (test 147 MG/DL 70-110 H Perfor med by certified code = GLUBED) 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[facility] GLUCOSE [id number] 15:43:00 Test Item Value Reference Range Interpretation Comments GLUCOSE BEDSIDE (test 154 MG/DL 70-110 H Perfor med by certified code = GLUBED) 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[facility] [id number] 14:34:00 Test Item Value Reference Range Interpretation Comments ACT-ISTAT (test code 281 SEC 74-137 H Perform ed by certified = ACTI) 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[facility] [id number] 08:42:00 Test Item Value Reference Range Interpretation Comments HGBA1C% (test code = HGBA1C%) 5.8 %A1C 4.8-6.0 N GLUCOSE [id number] 08:37:00 Test Item Value Reference Range Interpretation Comments GLUCOSE BEDSIDE (test 171 MG/DL 70-110 H Perfor med by certified code = GLUBED) 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[facility] CBC W/AUTO [id number] 08:24:00 Test Item Value Reference Range Interpretation [...] (test code NO = MDIFF) BASIC METABOLIC [id number] 07:56:00 Test Item Value Reference Range Interpretation [...] the recommended for bhumika for GFRby the [facility] on for Adults.The GFR will not calculate if th e sex is unknown or if thepatient's ag e is <18 years. CREATININE (test 4.9 mg/dL 0.6-1.3 H code = CREAT) CALCIUM (test code = 9.4 mg/dL 8.0-10.5 N CA) COAGULATION TIME [id number] 07:05:00 Test Item Value Reference Range Interpretation Comments COAGULATION TIME 245 SECONDS Performed b y ACTIVATED (test code = certi fied 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 operator ACT) at [facility] COAGULATION TIME [id number] 07:05:00 Test Item Value Reference Range Interpretation Comments COAGULATION TIME 234 SECONDS Performed b y ACTIVATED (test code = certi fied 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 operator ACT) at [facility] GLUCOSE [id number] 06:07:00 Test Item Value Reference Range Interpretation Comments GLUCOSE BEDSIDE (test 170 MG/DL 70-110 H Perfor med by certified code = GLUBED) 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[facility] GLUCOSE [id number] 19:40:00 Test Item Value Reference Range Interpretation Comments GLUCOSE BEDSIDE (test 143 MG/DL 70-110 H Perfor med by certified code = GLUBED) 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[facility] [id number] 17:22:00 Test Item Value Reference Range Interpretation Comments ACT-ISTAT (test code 275 SEC 74-137 H Perform ed by certified = ACTI) 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[facility] [id number] 16:11:00 Test Item Value Reference Range Interpretation Comments ACT-ISTAT (test code 251 SEC 74-137 H Perform ed by certified = ACTI) 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[facility] GLUCOSE [id number] 14:10:00 Test Item Value Reference Range Interpretation Comments GLUCOSE BEDSIDE (test 192 MG/DL 70-110 H Perfor med by certified code = GLUBED) 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[facility] GLUCOSE [id number] 11:52:00 Test Item Value Reference Range Interpretation Comments GLUCOSE BEDSIDE (test 215 MG/DL 70-110 H Perfor med by certified code = GLUBED) 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[facility] COVID 19 Asymptomatic IH [id number] 10:33:00 Test Item Value Reference Range Interpretation [...] moderate, high or waivedcomplexit y tests. GLUCOSE [id number] 08:19:00 Test Item Value Reference Range Interpretation Comments GLUCOSE BEDSIDE (test 220 MG/DL 70-110 H [facility] med by certified code = GLUBED) 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[facility] COMPREHENSIVE METABOLIC [id number] 07:53:00 Test Item Value Reference Range Interpretation [...] [facility].The [...] 20-125 H TOTAL (test code = ALKP) [id number] 07:53:00 Test Item Value Reference Range Interpretation Comments PHOSPHOROUS (test code = PHOS) 6.8 MG/DL 2.5-4.9 H [id number] 07:53:00 Test Item Value Reference Range Interpretation Comments MAGNESIUM (test code = MAG) 2.24 mg/dL 1.80-2.40 GLUCOSE [id number] 06:28:00 Test Item Value Reference Range Interpretation Comments GLUCOSE BEDSIDE (test 214 MG/DL 70-110 H Perfor med by certified code = GLUBED) 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[facility] CBC W/AUTO [id number] 05:40:00 Test Item Value Reference Range Interpretation [...] To be done morning of Heart CathRBC [id number] 05:40:00 Test Item Value Reference Range Interpretation Comments ANISOCYTOSIS (test code = ANISO) SLIGHT MACROCYTOSIS (test code = MACR) FEW COMMENTS: To be done morning of Heart Cath- XR FOOT 3 + V [id number] 00:00:00 [facility] [place] : 1955 Sex: F FAX: Agus AshtonVerónica Radha [phone] [place]: St: ADM FAX: Desire Marques MD [phone] FAX: Jim Mazariegos MD [phone] Name: MESERET MOTTA [facility] : 1955 Age/S: 67/F [address] [place] [address] Unit #: [id number] Loc: G.44[address] [place] [address] Phys: Desire Byers MD Acct: [id number] DisDate: Status: ADM IN PHONE #: [phone] Exam Date: 06/25/2022 1610 FAX #: [phone] Reason: L foot ulcers EXAMS: CPT CODE: [id number] XR FOOT 3 + [place] [address] PROCEDURE INFORMATION: Exam: XR Left Foot Exam [...] S: 06/26/2022 (841) PAGE 1 Signed ReportGLUCOSE [id number] 19:44:00 Test Item Value Reference Range Interpretation Comments GLUCOSE BEDSIDE (test 198 MG/DL 70-110 H Perfor med by certified code = GLUBED) 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[facility] GLUCOSE [id number] 16:13:00 Test Item Value Reference Range Interpretation Comments GLUCOSE BEDSIDE (test 189 MG/DL 70-110 H Perfor med by certified code = GLUBED) 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[facility] GLUCOSE [id number] 11:12:00 Test Item Value Reference Range Interpretation Comments GLUCOSE BEDSIDE (test 186 MG/DL 70-110 H Perfor med by certified code = GLUBED) 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[facility] CBC W/AUTO [id number] 10:49:00 Test Item Value Reference Range Interpretation [...] MDIFF) COMMENTS: Daily while on HeparinCOMPREHENSIVE METABOLIC [id number] 07:37:00 Test Item Value Reference Range Interpretation [...] recommended for bhumika for GFRby the [facility] Foundati on for Adults.The GFR [...] H TOTAL (test code = ALKP) GLUCOSE [id number] 05:53:00 Test Item Value Reference Range Interpretation Comments GLUCOSE BEDSIDE (test 159 MG/DL 70-110 H [facility] med by certified code = GLUBED) 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[facility] GLUCOSE [id number] 19:09:00 Test Item Value Reference Range Interpretation Comments GLUCOSE BEDSIDE (test 171 MG/DL 70-110 H Perfor med by certified code = GLUBED) 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[facility] GLUCOSE [id number] 15:56:00 Test Item Value Reference Range Interpretation Comments GLUCOSE BEDSIDE (test 159 MG/DL 70-110 H Perfor med by certified code = GLUBED) 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[facility] GLUCOSE [id number] 12:56:00 Test Item Value Reference Range Interpretation Comments GLUCOSE BEDSIDE (test 110 MG/DL 70-110 N Perfor med by certified code = GLUBED) 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[facility] ACUTE HEPATITIS [id number] 12:08:00 Test Item Value Reference Range Interpretation Comments AB HEPATITIS A IGM (test NON REACTIVE INDEX NON REACT. code = HAVMAB) AG HEPATITIS B SURFACE NON REACTIVE INDEX NonReactive (test code = HBSAG) AB HEPATITIS B CORE IGM NON REACTIVE INDEX NON REACT. (test code = HBCMAB) AB HEPATITIS C (test code NON REACTIVE INDEX NON REACT. = HCVAB) AB HEPATITIS B [id number] 12:08:00 Test Item Value Reference Range Interpretation Comments AB HEPATITIS B 11.7 mIU/mL See_Comment Verified by repeat SURFACE (test code = analysi s Status of HBSAB) Immunity Anti-H Bs Level --- I nconsis tent with Immun ity 0.0 - 9.9Consistent with Immunity >9.9Pe rformed At: [facility] [address] [place], [place] [id number] Kyle L MD Ph:[phone] [Automated mess age] The system [employer] generated this result transmitted ref erence range: Immunity >9.9. The reference r chikis was not used to interpret this result as normal/abnor mal. BASIC METABOLIC [id number] 08:08:00 Test Item Value Reference Range Interpretation [...] the recommended for bhumika for GFRby the [facility] Found[facility] on for Adults.The GFR will not calculate if th e sex is unknown or if thepatient's ag e is <18 years. CREATININE (test 5.8 mg/dL 0.6-1.3 H code = CREAT) CALCIUM (test code = 9.9 mg/dL 8.0-10.5 N CA) [id number] 08:08:00 Test Item Value Reference Range Interpretation Comments PHOSPHOROUS (test code = PHOS) 7.1 MG/DL 2.5-4.9 H [id number] 08:08:00 Test Item Value Reference Range Interpretation Comments MAGNESIUM (test code = MAG) 2.64 mg/dL 1.80-2.40 H CBC W/AUTO [id number] 07:09:00 Test Item Value Reference Range Interpretation [...] = MDIFF) COMMENTS: Daily while on HeparinGLUCOSE [id number] 05:45:00 Test Item Value Reference Range Interpretation Comments GLUCOSE BEDSIDE (test 190 MG/DL 70-110 H Perfor med by certified code = GLUBED) 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[facility] GLUCOSE [id number] 19:34:00 Test Item Value Reference Range Interpretation Comments GLUCOSE BEDSIDE (test 159 MG/DL 70-110 H Perfor med by certified code = GLUBED) 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[facility] GLUCOSE [id number] 17:04:00 Test Item Value Reference Range Interpretation Comments GLUCOSE BEDSIDE (test 167 MG/DL 70-110 H Perfor med by certified code = GLUBED) 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[facility] UA RFLX MICR CULT IF [id number] 16:38:00 Test Item Value Reference Range Interpretation [...] for culture: Gross HematuriaSpecimen Description: CLEAN CATCHGLUCOSE [id number] 12:14:00 Test Item Value Reference Range Interpretation Comments GLUCOSE BEDSIDE (test 147 MG/DL 70-110 H Perfor med by certified code = GLUBED) 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[facility] THROMBOPLASTIN TIME [id number] 11:46:00 Test Item Value Reference Range Interpretation Comments THROMBOPLASTIN TIME 72.0 Seconds 25.0-39.5 H Therape utic Range: PARTIAL (test code = 50.4 - 88.3 Seconds PTT) Effective 10/22/2018 GLUCOSE [id number] 06:01:00 Test Item Value Reference Range Interpretation Comments GLUCOSE BEDSIDE (test 246 MG/DL 70-110 H Perfor med by certified code = GLUBED) 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[facility] THROMBOPLASTIN TIME [id number] 05:17:00 Test Item Value Reference Range Interpretation Comments THROMBOPLASTIN TIME 53.5 Seconds 25.0-39.5 H Therape utic Range: PARTIAL (test code = 50.4 - 88.3 Seconds PTT) Effective 10/22/2018 CBC W/AUTO [id number] 04:16:00 Test Item Value Reference Range Interpretation [...] Daily while on Heparin- CT CHEST W/O [id number] 00:00:00 [facility] LAURA HERNANDEZName: MESERET MOTTA : 1955 Sex: F Name: ÁNGELAMESERET Watson [facility] [place] : 1955 Age/S: 67 / F [address] [place] [address] Unit #: [id number] Loc: [place] [address] Phys: Aleja Funk PAM Acct: [id number] Dis Date: Status: ADM IN PHONE #: [phone] Exam Date: 06/22/2022 09 FAX #: [phone] Reason: Dyspnea, CAD EXAMS: CPT CODE: [id number] CT CHEST W/O CONTRAST 33657 PROCEDURE INFORMATION: Exam: CT Chest Without Contrast; [...] PAGE 1 SignedReport (CONTINUED) Name: MESERET MOTTA [facility] : 1955 Age/S: 67 / F [address] [place] [address] Blvd Unit #: [id number] Loc: [place] [address] Phys: Aljea Funk Acct: [id number] DisDate: Status: ADM IN PHONE #: [phone] Exam Date: 06/22/2022954 FAX #: [phone] Reason: Dyspnea, CAD EXAMS: CPT CODE: [id number] CT CHEST W/O CONTRAST 40080 (Continued) 4. 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[facility] THROMBOPLASTIN TIME [id number] 21:11:00 Test Item Value Reference Range Interpretation Comments THROMBOPLASTIN TIME 51.2 Seconds 25.0-39.5 H Therape utic Range: PARTIAL (test code = 50.4 - 88.3 Seconds PTT) Effective 10/22/2018 GLUCOSE [id number] 18:42:00 Test Item Value Reference Range Interpretation Comments GLUCOSE BEDSIDE (test 125 MG/DL 70-110 H Perfor med by certified code = GLUBED) 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[facility] THROMBOPLASTIN TIME [id number] 13:02:00 Test Item Value Reference Range Interpretation Comments THROMBOPLASTIN TIME 40.0 Seconds 25.0-39.5 H Therape utic Range: PARTIAL (test code = 50.4 - 88.3 Seconds PTT) Effective 10/22/2018 PTH INTACT [id number] 12:41:00 Test Item Value Reference Range Interpretation Comments PARATHYROID HORMONE INTACT (test 661.2 pg/mL 14.0-72.0 H code = PARAI) B-TYPE NATRIURETIC [id number] 12:23:00 Test Item Value Reference Range Interpretation Comments B-TYPE NATRIURETIC PEPTIDE (test 557.0 PG/ML 0-100 H code = BNP) PROTHROMBIN [id number] 12:06:00 Test Item Value Reference Range Interpretation [...] (to prevent recurrent infar ct). 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 LAURA HERNANDEZName: MESERET MOTTA : 1955 Sex: F Name: MESERET MOTTA [facility] Laura Hernandez : 1955 Age/S: 67 / F [address] [place] [address] Blvd Unit #: [id number] Loc: [place] [address] Phys: Aleja Funk Acct: [id number] Dis Date: Status: ADM IN PHONE #: [phone] Exam Date: 06/22/2022 1510 FAX #: [phone] Reason: Vein mapping for CABG EXAMS: CPT CODE: [id number] DUP VEIN YEIMI 51313 PROCEDURE INFORMATION: Exam: US Duplex Lower ExtremityVeins; [...] Technologist: Monty Thomas Trnscb Date/Time: 06/22/2022 (1729) t.ROSALINER.AB53 Orig Print D/T: S: 06/22/2022 (1729) Probe: PAGE 1 Signed Report- DOP ART SGL LEVEL [id number] 00:00:00 [facility] : 1955 Sex: F Name: MESERET MOTTA [facility] : 1955 Age/S: 67 / F [address] [place] [address] Bl Unit #: [id number] Loc: [place] [address] Phys: Aleja Funk Acct: [id number] Dis Date: Status: ADM IN PHONE #: [phone] Exam Date: 06/22/2022 1509 FAX #: [phone] Reason: PVD EXAMS: CPT CODE:[id number] DOP ART SGL LEVEL YEIMI 74777 PROCEDURE INFORMATION: Exam: US Duplex Lower Extremity [...] occlusion or significant stenosis. Normal waveform. Left p opliteal artery: No occlusion or significant stenosis. Normal [...] 1 Signed Report (CONTINUED) Name: MESERET MOTTA [facility] : 1955 Age/S: 67 / F [address] [place] [address] Unit #: [id number] Loc: [place] [address] Phys: Aleja Funk Acct: [id number] Dis Date: Status: ADM IN PHONE #: [phone] Exam Date: 06/22/2022 5064 FAX #: [phone]: PVD EXAMS: CPT CODE: [id number] DOP ART SGL LEVEL YEIMI 71589 (Continued) CC: Delmy Ashton MD; Jim Dhillon MD; Aleja OROZCO Technologist: Monty Thomas Trnscb Date/Time: 2021 (1655) DanieMR72 Orig Print D/T: S: 06/22/2022 (1655) Probe: PAGE 2 Signed Report- DUP EXTRACRANIAL [id number] 00:00:00 [facility] : 1955 Sex: F Name: MESERET MOTTA [facility] : 1955 Age/S: 67 / F [address] Unit #: [id number] Loc: [place] [address] Phys: Aleja Funk Acct: [id number] Dis Date: Status: ADM IN PHONE #: [phone] Exam Date: 06/22/2022 1509 FAX #: [phone] Reason: CABG workup EXAMS: CPTCODE: [id number] DUP EXTRACRANIAL YEIMI 48203 PROCEDURE INFORMATION: Exam: US Duplex Bilateral Extracranial [...] occlusion is no detectable patent lumen. at 180 Reported and signed by: Paramjit Villar M.D.PAGE 1 Signed Report (CONTINUED) Name: MESERET MOTTA [facility] : 1955 Age/S: 67 / F [address] [place] [address] Blvd Unit #: [id number] Loc: [place] [address] Phys: Aleja Funk Acct: [id number] Dis Date: Status: ADM IN PHONE #: [phone] Exam Date: 06/22/2022 1509 FAX #: [phone] Reason: CABG workup EXAMS: CPT CODE: [id number] DUP EXTRACRANIAL YEIMI 99484 (Continued) CC: Kerry Ashton MD; Jim Dhillon MD; Aleja OROZCO Technologist: Monty Thomas [facility] Date/Time: 06/22/2022 (1806) t.SDR.TDO Orig Print D/T: S: 06/22/2022 (1807) Probe: PAGE 2 Signed ReportGLUCOSE [id number] 20:43:00 Test Item Value Reference Range Interpretation Comments GLUCOSE BEDSIDE (test 226 MG/DL 70-110 H Perfor med by certified code = GLUBED) 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[facility] CBC W/AUTO [id number] 20:20:00 Test Item Value Reference Range Interpretation [...] NOT ALREADY DONE WITHIN LAST 24 HOURSGLUCOSE [id number] 18:45:00 Test Item Value Reference Range Interpretation Comments GLUCOSE BEDSIDE (test 168 MG/DL 70-110 H Perfor med by certified code = GLUBED) 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[facility] PROTHROMBIN [id number] 18:42:00 Test Item Value Reference Range Interpretation [...] COMMENTS: If not already done in ERPOC [id number] 16:16:00 Test Item Value Reference Range Interpretation Comments POC glucose (test 89 mg/dL 65-99 Lactation Specialist N desire: Rubin code = 89808-9) EricDevice I D: [id number] able: RN Notified [facility] [id number] 16:16:00 Test Item Value Reference Range Interpretation Comments POC glucose (test 89 mg/dL 65-99 Lactation Specialist N desire: Rubin code = 46690-5) EricDevice I D: [id number] able: RN Notified [facility] [id number] 16:16:00 Test Item Value Reference Range Interpretation Comments POC glucose (test 89 mg/dL 65-99 Lactation Specialist N desire: Rubin code = 71567-1) EricDevice I D: [id number] able: RN Notified [facility] [id number] 16:16:00 Test Item Value Reference Range Interpretation Comments POC glucose (test 89 mg/dL 65-99 Lactation Specialist N desire: Rubin code = 75030-9) EricDevice I D: [id number] able: RN Notified [facility] [id number] 16:16:00 Test Item Value Reference Range Interpretation Comments POC glucose (test 89 mg/dL 65-99 Lactation Specialist N desire: Rubin code = 46568-7) EricDevice I D: [id number] able: RN Notified [facility] [id number] 16:16:00 Test Item Value Reference Range Interpretation Comments POC glucose (test 89 mg/dL 65-99 Lactation Specialist N desire: Rubin code = 64429-9) EricDevice I D: [id number] able: RN Notified [facility] [id number] 16:16:00 Test Item Value Reference Range Interpretation Comments POC glucose (test 89 mg/dL 65-99 Lactation Specialist N desire: Rubin code = 20875-4) EricDevice I D: [id number] able: RN Notified [facility] [id number] 16:16:00 Test Item Value Reference Range Interpretation Comments POC glucose (test 89 mg/dL 65-99 Lactation Specialist N desire: Rubin code = 73373-9) EricDevice I D: [id number] able: RN Notified [facility] [id number] 16:16:00 Test Item Value Reference Range Interpretation Comments POC glucose (test 89 mg/dL 65-99 Lactation Specialist N desire: Rubin code = 75551-0) EricDevice I D: [id number] able: RN Notified [facility] [id number] 16:16:00 Test Item Value Reference Range Interpretation Comments POC glucose (test 89 mg/dL 65-99 Lactation Specialist N desire: Rubin code = 75693-5) EricDevice I D: [id number] able: RN Notified [facility] [id number] 16:16:00 Test Item Value Reference Range Interpretation Comments POC glucose (test 89 mg/dL 65-99 Lactation Specialist N desire: Rubin code = 60800-3) EricDevice I D: [id number] able: RN Notified [facility]2022-10-19 16:16:00 Test Item Value Reference Range Interpretation Comments POC glucose (test 89 mg/dL 65-99 Lactation Specialist N desire: Rubin code = 76049-0) EricDevice I D: [id number] able: RN Notified [facility]2022-10-19 16:16:00 Test Item Value Reference Range Interpretation Comments POC glucose (test 89 mg/dL 65-99 Lactation Specialist N desire: Rubin code = 38060-3) EricDevice I D: [id number] able: RN Notified [facility] [id number] 13:03:01 Test Item Value Reference Range Interpretation Comments POC sodium (test code = 140 mmol/L 958-096 1627-0) POC potassium (test code 3.9 mmol/L 3.5-5.0 = 6298-4) POC glucose (test code = 78 mg/dL 65-99 2339-0) POC creatinine (test 4.6 mg/dl 0.5-0.9 H Operato r Name: code = 62841-4) Marko kyle ID: [id number] POC hemoglobin (test 8.5 g/dL 12.0-16.0 L code = 718-7) POC hematocrit (test 25 % 37-47 L code = 4544-3) Lab Interpretation (test Abnormal code = 03421-8) [facility]2022-10-19 13:03:01 Test Item Value Reference Range Interpretation Comments POC sodium (test code = 140 mmol/L 216-271 7173-0) POC potassium (test code 3.9 mmol/L 3.5-5.0 = 6298-4) POC glucose (test code = 78 mg/dL 65-99 2339-0) POC creatinine (test 4.6 mg/dl 0.5-0.9 H Operato r Name: code = 43576-1) Zhu Madhav kyle ID: [id number] POC hemoglobin (test 8.5 g/dL 12.0-16.0 L code = 718-7) POC hematocrit (test 25 % 37-47 L code = 4544-3) Lab Interpretation (test Abnormal code = 59285-3) [facility]2022-10-19 13:03:01 Test Item Value Reference Range Interpretation Comments POC sodium (test code = 140 mmol/L 198-798 3936-0) POC potassium (test code 3.9 mmol/L 3.5-5.0 = 6298-4) POC glucose (test code = 78 mg/dL 65-99 2339-0) POC creatinine (test 4.6 mg/dl 0.5-0.9 H Operato r Name: code = 81806-9) Zhu Madhav kyle ID: [id number] POC hemoglobin (test 8.5 g/dL 12.0-16.0 L code = 718-7) POC hematocrit (test 25 % 37-47 L code = 4544-3) Lab Interpretation (test Abnormal code = 25721-2) [facility]2022-10-19 13:03:01 Test Item Value Reference Range Interpretation Comments POC sodium (test code = 140 mmol/L 767-826 5690-0) POC potassium (test code 3.9 mmol/L 3.5-5.0 = 6298-4) POC glucose (test code = 78 mg/dL 65-99 2339-0) POC creatinine (test 4.6 mg/dl 0.5-0.9 H Operato r Name: code = 49369-3) Zhu Madhav kyle ID: [id number] POC hemoglobin (test 8.5 g/dL 12.0-16.0 L code = 718-7) POC hematocrit (test 25 % 37-47 L code = 4544-3) Lab Interpretation (test Abnormal code = 66314-5) [facility]2022-10-19 13:03:01 Test Item Value Reference Range Interpretation Comments POC sodium (test code = 140 mmol/L 535-052 3176-0) POC potassium (test code 3.9 mmol/L 3.5-5.0 = 6298-4) POC glucose (test code = 78 mg/dL 65-99 2339-0) POC creatinine (test 4.6 mg/dl 0.5-0.9 H Operato r Name: code = 16624-8) Zhu Madhav anabella ID: [id number] POC hemoglobin (test 8.5 g/dL 12.0-16.0 L code = 718-7) POC hematocrit (test 25 % 37-47 L code = 4544-3) Lab Interpretation (test Abnormal code = 06743-0) [facility]2022-10-19 13:03:01 Test Item Value Reference Range Interpretation Comments POC sodium (test code = 140 mmol/L 428-010 3021-0) POC potassium (test code 3.9 mmol/L 3.5-5.0 = 6298-4) POC glucose (test code = 78 mg/dL 65-99 2339-0) POC creatinine (test 4.6 mg/dl 0.5-0.9 H Operato r Name: code = 21543-6) Marko Corey anabella ID: [id number] POC hemoglobin (test 8.5 g/dL 12.0-16.0 L code = 718-7) POC hematocrit (test 25 % 37-47 L code = 4544-3) Lab Interpretation (test Abnormal code = 03257-6) [facility]2022-10-19 13:03:01 Test Item Value Reference Range Interpretation Comments POC sodium (test code = 140 mmol/L 853-920 4293-0) POC potassium (test code 3.9 mmol/L 3.5-5.0 = 6298-4) POC glucose (test code = 78 mg/dL 65-99 2339-0) POC creatinine (test 4.6 mg/dl 0.5-0.9 H Operato r Name: code = 21218-2) Marko kyle ID: [id number] POC hemoglobin (test 8.5 g/dL 12.0-16.0 L code = 718-7) POC hematocrit (test 25 % 37-47 L code = 4544-3) Lab Interpretation (test Abnormal code = 71443-9) [facility]2022-10-19 13:03:01 Test Item Value Reference Range Interpretation Comments POC sodium (test code = 140 mmol/L 053-471 1291-0) POC potassium (test code 3.9 mmol/L 3.5-5.0 = 6298-4) POC glucose (test code = 78 mg/dL 65-99 2339-0) POC creatinine (test 4.6 mg/dl 0.5-0.9 H Operato r Name: code = 61086-6) Marko kyle ID: [id number] POC hemoglobin (test 8.5 g/dL 12.0-16.0 L code = 718-7) POC hematocrit (test 25 % 37-47 L code = 4544-3) Lab Interpretation (test Abnormal code = 53263-3) [facility]2022-10-19 13:03:01 Test Item Value Reference Range Interpretation Comments POC sodium (test code = 140 mmol/L 764-538 2844-0) POC potassium (test code 3.9 mmol/L 3.5-5.0 = 6298-4) POC glucose (test code = 78 mg/dL 65-99 2339-0) POC creatinine (test 4.6 mg/dl 0.5-0.9 H Operato r Name: code = 89218-2) Marko kyle ID: [id number] POC hemoglobin (test 8.5 g/dL 12.0-16.0 L code = 718-7) POC hematocrit (test 25 % 37-47 L code = 4544-3) Lab Interpretation (test Abnormal code = 82884-8) [facility]2022-10-19 13:03:01 Test Item Value Reference Range Interpretation Comments POC sodium (test code = 140 mmol/L 811-400 2876-0) POC potassium (test code 3.9 mmol/L 3.5-5.0 = 6298-4) POC glucose (test code = 78 mg/dL 65-99 2339-0) POC creatinine (test 4.6 mg/dl 0.5-0.9 H Operato r Name: code = 97106-6) Marko kyle ID: [id number] POC hemoglobin (test 8.5 g/dL 12.0-16.0 L code = 718-7) POC hematocrit (test 25 % 37-47 L code = 4544-3) Lab Interpretation (test Abnormal code = 82010-2) [facility]2022-10-19 13:03:01 Test Item Value Reference Range Interpretation Comments POC sodium (test code = 140 mmol/L 074-357 0943-0) POC potassium (test code 3.9 mmol/L 3.5-5.0 = 6298-4) POC glucose (test code = 78 mg/dL 65-99 2339-0) POC creatinine (test 4.6 mg/dl 0.5-0.9 H Operato r Name: code = 19935-7) Marko kyle ID: [id number] POC hemoglobin (test 8.5 g/dL 12.0-16.0 L code = 718-7) POC hematocrit (test 25 % 37-47 L code = 4544-3) Lab Interpretation (test Abnormal code = 91730-3) [facility]2022-10-19 13:03:01 Test Item Value Reference Range Interpretation Comments POC sodium (test code = 140 mmol/L 422-521 1080-0) POC potassium (test code 3.9 mmol/L 3.5-5.0 = 6298-4) POC glucose (test code = 78 mg/dL 65-99 2339-0) POC creatinine (test 4.6 mg/dl 0.5-0.9 H Operato r Name: code = 59403-9) Marko kyle ID: [id number] POC hemoglobin (test 8.5 g/dL 12.0-16.0 L code = 718-7) POC hematocrit (test 25 % 37-47 L code = 4544-3) Lab Interpretation (test Abnormal code = 84798-2) [facility]2022-10-19 13:03:01 Test Item Value Reference Range Interpretation Comments POC sodium (test code = 140 mmol/L 867-120 5435-0) POC potassium (test code 3.9 mmol/L 3.5-5.0 = 6298-4) POC glucose (test code = 78 mg/dL 65-99 2339-0) POC creatinine (test 4.6 mg/dl 0.5-0.9 H Operato r Name: code = 76303-9) Marko kyle ID: [id number] POC hemoglobin (test 8.5 g/dL 12.0-16.0 L code = 718-7) POC hematocrit (test 25 % 37-47 L code = 4544-3) Lab Interpretation (test Abnormal code = 75133-0) [id number] 13:03:00 Test Item Value Reference Range Interpretation Comments Estimated GFR (test mL/min/1.73 m2 A Caterg ory Units code = 22577-7) Interpretati onG1 >=90 Normal or highG 2 60-89 Mildly decrease dG3a 45-59 Mildly to moderately decr ocqvdD5v 30-44 Moderatel y to severely decrea sedG4 15-29 Severely decreasedG5 <15 Kidney failureThe eGFR was calculated usin g the Chronic Kidney Disease Epidemiology Collaboration ( CKD-EPI) equation. Interpretation is based on recommendati ons of the [facility] Disease Outcome s Quality Initiat hermes (NK-KDOQI) pub lished in 2013. Lab Interpretation Abnormal (test code = 58369-4) [facility] [id number] 13:03:00 Test Item Value Reference Range Interpretation Comments Estimated GFR (test 9 mL/min/1.73 m2 A Caterg ory Units code = 64060-8) Interpretati onG1 >=90 Normal or highG 2 60-89 Mildly decrease dG3a 45-59 Mildly to moderately decr togkrX6f 30-44 Moderatel y to severely decrea sedG4 15-29 Severely decreasedG5 <15 Kidney failureThe eGFR was calculated usin g the Chronic Kidney Disease Epidemiology Collaboration ( CKD-EPI) equation. Interpretation is based on recommendati ons of the [facility] Disease Outcome s Quality Initiat hermes (NK-KDOQI) pub lished in 2013. Lab Interpretation Abnormal (test code = 33099-3) [facility] [id number] 13:03:00 Test Item Value Reference Range Interpretation Comments Estimated GFR (test 9 mL/min/1.73 m2 A Caterg ory Units code = 85373-8) Interpretati onG1 >=90 Normal or highG 2 60-89 Mildly decrease dG3a 45-59 Mildly to moderately decr bwetzW6s 30-44 Moderatel y to severely decrea sedG4 15-29 Severely decreasedG5 <15 Kidney failureThe eGFR was calculated usin g the Chronic Kidney Disease Epidemiology Collaboration ( CKD-EPI) equation. Interpretation is based on recommendati ons of the [facility] Disease Outcome s Quality Initiat hermes ([facility]-KDOQI) pub lished in 2013. Lab Interpretation Abnormal (test code = 51878-3) [facility] [id number] 13:03:00 Test Item Value Reference Range Interpretation Comments Estimated GFR (test 9 mL/min/1.73 m2 A Caterg ory Units code = 04079-5) Interpretati onG1 >=90 Normal or highG 2 60-89 Mildly decrease dG3a 45-59 Mildly to moderately decr fyaihK9a 30-44 Moderatel y to severely decrea sedG4 15-29 Severely decreasedG5 <15 Kidney failureThe eGFR was calculated usin g the Chronic Kidney Disease Epidemiology Collaboration ( CKD-EPI) equation. Interpretation is based on recommendati ons of the [facility] Disease Outcome s Quality Initiat hermes (NK-KDOQI) pub lished in 2013. Lab Interpretation Abnormal (test code = 30005-3) [facility] [id number] 13:03:00 Test Item Value Reference Range Interpretation Comments Estimated GFR (test 9 mL/min/1.73 m2 A Caterg ory Units code = 05133-4) Interpretati onG1 >=90 Normal or highG 2 60-89 Mildly decrease dG3a 45-59 Mildly to moderately decr zameyQ2b 30-44 Moderatel y to severely decrea sedG4 15-29 Severely decreasedG5 <1 5 Kidney failureThe eGFR was calculated usin g the Chronic Kidney Disease Epidemiology Collaboration ( CKD-EPI) equation. Interpretation is based on recommendati ons of the [facility] Disease Outcome s Quality Initiat hermes ([facility]) pub lished in 2013. Lab Interpretation Abnormal (test code = 49554-6) [facility] [id number] 13:03:00 Test Item Value Reference Range Interpretation Comments Estimated GFR (test 9 mL/min/1.73 m2 A Caterg ory Units code = 87765-3) Interpretati onG1 >=90 Normal or highG 2 60-89 Mildly decrease dG3a 45-59 Mildly to moderately decr tcaxlV4h 30-44 Moderatel y to severely decrea sedG4 15-29 Severely decreasedG5 <15 Kidney failureThe eGFR was calculated usin g the Chronic Kidney Disease Epidemiology Collaboration ( CKD-EPI) equation. Interpretation is based on recommendati ons of the [facility] Disease Outcome s Quality Initiat hermes ([facility]) pub lished in 2013. Lab Interpretation Abnormal (test code = 74703-0) [facility] [id number] 13:03:00 Test Item Value Reference Range Interpretation Comments Estimated GFR (test 9 mL/min/1.73 m2 A Caterg ory Units code = 21684-8) Interpretati onG1 >=90 Normal or highG 2 60-89 Mildly decrease dG3a 45-59 Mildly t o moderately decr lhzywS8k 30-44 Moderatel y to severely decrea sedG4 15-29 Severely decreasedG5 <15 Kidney failureThe eGFR was calculated usin g the Chronic Kidney Disease Epidemiology Collaboration ( CKD-EPI) equation. Interpretation is based on recommendati ons of the [facility] Disease Outcome s Quality Initiat hermes ([facility]) pub lished in 2013. Lab Interpretation Abnormal (test code = 07019-5) [facility] [id number] 13:03:00 Test Item Value Reference Range Interpretation Comments Estimated GFR (test 9 mL/min/1.73 m2 A Caterg ory Units code = 01607-6) Interpretati onG1 >=90 Normal or highG 2 60-89 Mildly decrease dG3a 45-59 Mildly to moderately decr xmqmvO5u 30-44 Moderatel y to severely decrea sedG4 15-29 Severely decreasedG5 <15 Kidney failureThe eGFR was calculated usin g the Chronic Kidney Disease Epidemiology Collaboration ( CKD-EPI) equation. Interpretation is based on recommendati ons of the [facility] Disease Outcome s Quality Initiat hermes (NK-KDOQI) pub lished in 2013. Lab Interpretation Abnormal (test code = 95981-2) [facility] [id number] 13:03:00 Test Item Value Reference Range Interpretation Comments Estimated GFR (test 9 mL/min/1.73 m2 A Caterg ory Units code = 18349-9) Interpretati onG1 >=90 Normal or highG 2 60-89 Mildly decrease dG3a 45-59 Mildly to moderately decr sdyoeM2y 30-44 Moderatel y to severely decrea sedG4 15-29 Severely decreasedG5 <15 Kidney failureThe eGFR was calculated usin g the Chronic Kidney Disease Epidemiology Collaboration ( CKD-EPI) equation. Interpretation is based on recommendati ons of the [facility] Disease Outcome s Quality Initiat hermes ([facility]) pub lished in 2013. Lab Interpretation Abnormal (test code = 66716-2) [facility] [id number] 13:03:00 Test Item Value Reference Range Interpretation Comments Estimated GFR (test 9 mL/min/1.73 m2 A Caterg ory Units code = 17362-7) Interpretati onG1 >=90 Normal or highG 2 60-89 Mildly decrease dG3a 45-59 Mildly to moderately decr udftcV9g 30-44 Moderatel y to severely decrea sedG4 15-29 Severely decreasedG5 <15 Kidney failureThe eGFR was calculated usin g the Chronic Kidney Disease Epidemiology Collaboration ( CKD-EPI) equation. Interpretation is based on recommendati ons of the [facility] Disease Outcome s Quality Initiat hermes ([facility]) pub lished in 2013. Lab Interpretation Abnormal (test code = 26200-1) [facility] [id number] 13:03:00 Test Item Value Reference Range Interpretation Comments Estimated GFR (test 9 mL/min/1.73 m2 A Caterg ory Units code = 72225-7) Interpretati onG1 >=90 Normal or highG 2 60-89 Mildly decrease dG3a 45-59 Mildly to moderately decr kqixaT2v 30-44 Moderatel y to severely decrea sedG4 15-29 Severely decreasedG5 <1 5 Kidney failureThe eGFR was calculated usin g the Chronic Kidney Disease Epidemiology Collaboration ( CKD-EPI) equation. Interpretation is based on recommendati ons of the [facility] Disease Outcome s Quality Initiat hermes (NK-KDOQI) pub lished in 2013. Lab Interpretation Abnormal (test code = 93919-0) [facility] [id number] 13:03:00 Test Item Value Reference Range Interpretation Comments Estimated GFR (test 9 mL/min/1.73 m2 A Caterg ory Units code = 83234-7) Interpretati onG1 >=90 Normal or highG 2 60-89 Mildly decrease dG3a 45-59 Mildly to moderately decr qachgT3f 30-44 Moderatel y to severely decrea sedG4 15-29 Severely decreasedG5 <15 Kidney failureThe eGFR was calculated usin g the Chronic Kidney Disease Epidemiology Collaboration ( CKD-EPI) equation. Interpretation is based on recommendati ons of the [facility] Disease Outcome s Quality Initiat hermes ([facility]) pub lished in 2013. Lab Interpretation Abnormal (test code = 93452-8) [facility] [id number] 13:03:00 Test Item Value Reference Range Interpretation Comments Estimated GFR (test 9 mL/min/1.73 m2 A Caterg ory Units code = 10825-2) Interpretati onG1 >=90 Normal or highG 2 60-89 Mildly decrease dG3a 45-59 Mildly to moderately decr sfpqiJ1m 30-44 Moderatel y to severely decrea sedG4 15-29 Severely decreasedG5 <15 Kidney failureThe eGFR was calculated usin g the Chronic Kidney Disease Epidemiology Collaboration ( CKD-EPI) equation. Interpretation is based on recommendati ons of the [facility] Disease Outcome s Quality Initiat hermes (NK-KDOQI) pub lished in 2013. Lab Interpretation Abnormal (test code = 97437-8) [facility] [id number] 19:03:18 Test Item Value Reference Range Interpretation Comments Case number (test code = [id number]) Surgical pathology See link below for report (test code = PDF Lab Report 2250) Result status (test code This is Final Report = [id number]) for [id number] [facility] pathology [id number] 19:03:18 Test Item Value Reference Range Interpretation Comments Case number (test code = [id number]) Surgical pathology See link below for report (test code = PDF Lab Report 2255) Result status (test code This is Final Report = [id number]) for [id number] [facility] pathology [id number] 19:03:18 Test Item Value Reference Range Interpretation Comments Case number (test code = [id number]) Surgical pathology See link below for report (test code = PDF Lab Report 2255) Result status (test code This is Final Report = [id number]) for [address] pathology [id number] 19:03:18 Test Item Value Reference Range Interpretation Comments Case number (test code = [id number]) Surgical pathology See link below for report (test code = PDF Lab Report 2255) Result status (test code This is Final Report = [id number]) for [id number] [place] [address] pathology [id number] 19:03:18 Test Item Value Reference Range Interpretation Comments Case number (test code = [id number]) Surgical pathology See link below for report (test code = PDF Lab Report 2255) Result status (test code This is Final Report = [id number]) for [id number] pathology [id number] 19:03:18 Test Item Value Reference Range Interpretation Comments Case number (test code = [id number]) Surgical pathology See link below for report (test code = PDF Lab Report 2255) Result status (test code This is Final Report = [id number]) for [id number] [facility] pathology [id number] 19:03:18 Test Item Value Reference Range Interpretation Comments Case number (test code = [id number]) Surgical pathology See link below for report (test code = PDF Lab Report 2255) Result status (test code This is Final Report = [id number]) for [id number] pathology [id number] 19:03:18 Test Item Value Reference Range Interpretation Comments Case number (test code = [id number]) Surgical pathology See link below for report (test code = PDF Lab Report 2255) Result status (test code This is Final Report = [id number]) for [id number] [facility] pathology [id number] 19:03:18 Test Item Value Reference Range Interpretation Comments Case number (test code = [id number]) Surgical pathology See link below for report (test code = PDF Lab Report 2255) Result status (test code This is Final Report = 6311231) for [id number] [facility] pathology [id number] 19:03:18 Test Item Value Reference Range Interpretation Comments Case number (test code = [id number]) Surgical pathology See link below for report (test code = PDF Lab Report 2255) Result status (test code This is Final Report = [id number]) for [id number] [facility] pathology [id number] 19:03:18 Test Item Value Reference Range Interpretation Comments Case number (test code = [id number]) Surgical pathology See link below for report (test code = PDF Lab Report 2255) Result status (test code This is Final Report = [id number]) for [id number] [facility] pathology [id number] 19:03:18 Test Item Value Reference Range Interpretation Comments Case number (test code = [id number]) Surgical pathology See link below for report (test code = PDF Lab Report 2255) Result status (test code This is Final Report = [id number]) for [id number] [facility] [id number] 10:49:53 Test Item Value Reference Range Interpretation Comments Ventricular rate (test code = 253) Atrial rate (test code = 255) VA interval (test code = 266) QRSD interval [...] inversion now evident in Inferior leads- [facility] Pre/Post [id number] 10:49:53 Test Item Value Reference Range Interpretation Comments Ventricular rate (test 101 code = 253) Atrial rate (test code 101 = 255) VA interval (test code 160 = 266) QRSD [...] inversion now evident in Inferior leads- [facility] Pre/Post [id number] 10:49:53 Test Item Value Reference Range Interpretation Comments Ventricular rate (test 101 code = 253) Atrial rate (test code 101 = 255) VA interval (test code 160 = 266) QRSD [...] inversion now evident in Inferior leads- [facility] Pre/Post [id number] 10:49:53 Test Item Value Reference Range Interpretation Comments Ventricular rate (test 101 code = 253) Atrial rate (test code 101 = 255) VA interval (test code 160 = 266) QRSD [...] inversion now evident in Inferior leads- [facility] Pre/Post [id number] 10:49:53 Test Item Value Reference Range Interpretation Comments Ventricular rate (test 101 code = 253) Atrial rate (test code 101 = 255) VA interval (test code 160 = 266) QRSD [...] inversion now evident in Inferior leads- [facility] Pre/Post [id number] 10:49:53 Test Item Value Reference Range Interpretation Comments Ventricular rate (test 101 code = 253) Atrial rate (test code 101 = 255) VA interval (test code 160 = 266) QRSD [...] inversion now evident in Inferior leads- [facility] Pre/Post [id number] 10:49:53 Test Item Value Reference Range Interpretation Comments Ventricular rate (test 101 code = 253) Atrial rate (test code 101 = 255) VA interval (test code 160 = 266) QRSD [...] inversion now evident in Inferior leads- [facility] Pre/Post [id number] 10:49:53 Test Item Value Reference Range Interpretation Comments Ventricular rate (test 101 code = 253) Atrial rate (test code 101 = 255) VA interval (test code 160 = 266) QRSD [...] inversion now evident in Inferior leads- [facility] Pre/Post [id number] 10:49:53 Test Item Value Reference Range Interpretation Comments Ventricular rate (test 101 code = 253) Atrial rate (test code 101 = 255) VA interval (test code 160 = 266) QRSD [...] inversion now evident in Inferior leads- [facility] Pre/Post [id number] 10:49:53 Test Item Value Reference Range Interpretation Comments Ventricular rate (test 101 code = 253) Atrial rate (test code 101 = 255) VA interval (test code 160 = 266) QRSD [...] wave inversion now evident in Inferior leads- [facility] GLUCOSE (AUTOMATED)2020-10-14 12:45:50 Test Item Value Reference Range Interpretation Comments POCT GLU (test code = 0078404682) 255 mg/dL 70-110 H Lab Interpretation (test code = Abnormal 24083-8) [facility] [id number] 12:35:00 Test Item Value Reference Range Interpretation Comments POCT Glu (age>30days) (test code = 255 mg/dL 70-110 A 3342) Lab Interpretation (test code = Abnormal 18769-8) [facility] [Presence] in Respiratory specimen by JUANY with probe [id number] 01:15:19 Test Item Value Reference Range Interpretation Comments SARS-CoV-2 (COVID-19) RNA Not detected Not-Detected [Presence] in Respiratory specimen by JUANY with probe detection (test code = 04224-6) [facility] [id number] 12:03:00 Test Item Value Reference Range Interpretation Comments POCT Glu (age>30days) (test code = 142 mg/dL 70-110 A 3342) Lab Interpretation (test code = Abnormal 53125-4) [facility] [Presence] in Respiratory specimen by JUANY with probe [id number] 18:03:16 Test Item Value Reference Range Interpretation Comments SARS-CoV-2 (COVID-19) RNA Not detected Not-Detected [Presence] in Respiratory specimen by JUANY with probe detection (test code = 23218-7) [facility]
[2023-05-09] MEDS ORDERED: PROMETHAZINE 25 MG TABLET ONE (07:09)
[2023-05-09] MEDS ORDERED: DIPHENOX/ATROP SULF 1 TAB PO ONE (07:09)
[2023-05-09 07:22] LABS: Absolute Lymphocytes (CBC) 0.3 K/uL (0.7-4.9); Hematocrit 30.6 % (36.0-45.0); Lymphocytes % 3.3 % (15.3-44.8); MCV 92.7 fL (80-100); MPV 8.6 fL (7.6-11.3); Platelets 122 thou/uL (152-406); Protime INR 1.25
[2023-05-09 08:01] LABS: ALT/SGPT 17 U/L (13-56); Albumin 2.5 g/dL (3.4-5.0); Alkaline Phosphatase 73 U/L (45-117); BUN Blood Urea Nitrogen 122 mg/dL (7-18); Bicarbonate 11 mEq/L (21-32); Bilirubin Direct 0.4 mg/dL (0-0.2); Bilirubin Indirect, Calculated 0.5 mg/dL (0.2-0.8); Bilirubin Total 0.9 mg/dL (0.2-1.0); Glomerular Filtration Rate 5 ml/min (=/>90); Glucose Level 116 mg/dL (74-106); Protein, Total 6.6 g/dL (6.4-8.2); Sodium Level 142 mEq/L (136-145)
[2023-05-09 08:02] LABS: AST/SGOT 28 U/L (15-37); Magnesium 1.9 mg/dL (1.6-2.4); NT PRO-BNP > 175000 pg/mL (<125); Potassium 4.5 mEq/L (3.5-5.1)
[2023-05-09 08:04] LABS: Troponin High Sensitivity 69.8 pg/mL (<58.9)
[2023-05-09 08:25] LABS: Blood Morphology Comment NOT SEEN (NOT SEEN); White Blood Cell Scan OK (OK)
[2023-05-09 08:26] LABS: Platelet Estimate DECR
--- NOTE | 2023-05-09 08:46 | EDPHYS ---
Physician Documentation [facility] Name: Meseret Gallego Age: 68 yrs Sex: Female : 1955 Arrival Date: 05/09/2023 Time: 06:06 Bed IV Therapy Private MD: ED Physician Humza Burciaga HPI: 05/09 06:14 This 68 yrs old Female presents to ER via Unassigned with complaints of sp4 Diarrhea . 06:32 The CTs six 8-year-old female with extensive past medical history of end-stage renal sp4 disease on hemodialysis Sunday also coronary artery disease diabetes and hypertension. Patient presents with EMS because she has developed nausea vomiting and profuse diarrhea starting 2 days ago. At home patient has developed moderate watery stools without blood and she has slipped and fell. She then called EMS who brought her here for evaluation. Patient has missed her hemodialysis on Sunday secondary to weakness associated with diarrhea and vomiting. Patient was admitted here on 04/22/2023 and discharged on 04/25/2023 she was managed for acute respiratory failure with hypoxia, acute on chronic CHF, coronary artery disease, history of CABG, midsternal chest wound, diabetes type 2, diabetic neuropathy, hypertension, hyperlipidemia, diabetic sores on the feet, hypothyroidism. Patient's medications include metoprolol succinate 12.5 mg p.o. twice daily, Flexeril 10 mg 3 times daily, collagenase daily, amlodipine 5 mg daily, ticagrelor 90 mg p.o. twice daily, Prosource liquid during twice daily, hydrocodone 10 every 6 hours, Silvadene topical twice daily, ipratropium nebulizers every 6 hours as needed, loratadine 10 mg daily, mupirocin ointment twice daily, nystatin cream twice daily.. Historical: - Allergies: 06:25 Codeine; nw 06:25 Phenergan; nw 06:25 Tape; nw1 - Home Meds: 09:00 amlodipine 10 mg tab 1 tab once daily [Active]; aspirin 81 mg Oral capsule daily eh3 [Active]; atorvastatin 40 mg Oral tab 1 tab every day at bedtime [Active]; BRILINTA 90 mg Oral tab 1 tab 2 times per day [Active]; bupropion HCl 75 mg Oral tablet 2 times per day [Active]; clopidogrel 75 mg Oral tablet daily [Active]; furosemide 80 mg Oral tab 1 tab once daily [Active]; Humalog U-100 Insulin 100 unit/mL Sub-Q crtg 50 unit twice a day [Active]; Insulin: Regular Sub-Q [Active]; Lantus U-100 Insulin 100 unit/mL Sub-Q crtg [Active]; lisinopril 5 mg Oral tab 1 tab once daily [Active]; metoprolol tartrate 12.5 mg Oral tab 2 times per day [Active]; midodrine 10 mg Oral tab 1 tab 3 times per day [Active]; Protonix 40 mg Oral TbEC 1 tab once daily [Active]; sucralfate 1 gram Oral tab 1 tab 2 times per day [Active]; Synthroid 150 mcg Oral tablet 1 tab daily [Active]; Vitamin D Oral daily [Active]; Wellbutrin XL 150 mg Oral Tb24 1 tab once daily [Active]; - PMHx: 09:00 Diabetes - IDDM; Dialysis; Hypercholesterolemia; Hypertension; Hypothyroidism; eh3 Myocardial infarction; - PSHx: 09:00 2 heart stents; back; section; Coronary artery bypass graft; knee; neck; eh3 - Immunization history:: Adult Immunizations up to date. - Social history:: Smoking status: Patient reports the use of cigarette tobacco products. - Family history:: not pertinent. ROS: 06:32 Constitutional: Negative for fever, chills, and weight loss, positive for diarrhea, sp4 vomiting, generalized weakness, feeling unwell Eyes: Negative for injury, pain, redness, and discharge, 06:32 All other systems are negative, Exam: 06:32 Constitutional: This is a well developed, well nourished patient who is awake, alert, sp4 ill-appearing female, generalized pallor, there is also right chest wall tunneled hemodialysis catheter. Moderate to severe physical deconditioning. Bilateral lower extremity edema. Head/Face: Normocephalic, atraumatic. Eyes: Pupils equal round and reactive to light, extra-ocular motions intact. Lids and lashes normal. Conjunctiva and sclera are not injected. Cornea within normal limits. Periorbital areas with no swelling, redness, or edema. ENT: Nares patent. No nasal discharge, no septal abnormalities noted. Tympanic membranes are normal and external auditory canals are clear. Oropharynx with no redness, swelling, or masses, exudates, or evidence of obstruction, uvula midline. Mucous membranes moist. Neck: Trachea midline, no thyromegaly or masses palpated, and no cervical lymphadenopathy. Supple, full range of motion without nuchal rigidity, or vertebral point tenderness. Chest/axilla: Normal chest wall appearance and motion. Nontender with no deformity. No lesions are appreciated. Cardiovascular: Regular rate and rhythm with a normal S1 and S2. No gallops, murmurs, or rubs. Normal PMI, no JVD. No pulse deficits. Respiratory: Lungs have equal breath sounds bilaterally, clear to auscultation and percussion. No rales, rhonchi or wheezes noted. No increased work of breathing, no retractions or nasal flaring. Abdomen/GI: Soft, non-tender, with normal bowel sounds. No distension or tympany. No guarding or rebound. No evidence of tenderness throughout. Back: No spinal tenderness. No costovertebral tenderness. Skin: Warm, dry with normal turgor. Normal color with no rashes, no lesions, and no evidence of cellulitis. MS/ Extremity: Pulses equal, no cyanosis. Neurovascular intact. Full, normal range of motion. Bilateral lower extremity edema with pitting Neuro: Awake and alert, GCS 15, oriented to person, place, time, and situation. Cranial nerves II-XII grossly intact. Motor strength 5/5 in all extremities. Sensory grossly intact. Psych: Awake, alert, with orientation to person, place and time. Behavior, mood, and affect are within normal limits 08:42 ECG was reviewed by the Attending Physician. rt Vital Signs: 06:10 Pulse 87; Resp 21; Temp 97.9(O); Pulse Ox 97% on R/A; Pain 8/10; nw1 06:32 BP 115 / 42; Pulse 85; Resp 18; Pulse Ox 96% ; Weight 86.18 kg; Height 5 ft. 6 in. ; nw1 07:35 BP 125 / 60; Pulse 87; Resp 22; Pulse Ox 96% on R/A; tm6 07:42 Temp 97.7(TE); tm6 21:30 BP 112 / 58; Pulse 79; Resp 18 S; Pulse Ox 96% on R/A; ha1 23:00 BP 132 / 65; Pulse 85; Resp 20 S; Pulse Ox 96% on R/A; ha1 06:32 Body Mass Index 30.67 (86.18 kg, 167.64 cm) nw1 06:10 Pain Scale: Adult nw1 Stephany Coma Score: 06:28 Eye Response: spontaneous(4). Motor Response: obeys commands(6). Verbal Response: nw1 oriented(5). Total: 15. MDM: 06:59 Patient medically screened. rt 07:00 Data reviewed: vital signs, nurses notes, EMS record, old medical records, lab test sp4 result(s), EKG, radiologic studies, plain films. Consideration of Admission/Observation Escalation of care including admission/observation considered. Transition of care: After a detail discussion of the patient's case, care is transferred to Humza Burciaga MD. 08:42 Differential Diagnosis ESRD, gastroenteritis, electrolyte disturbance. Management of rt patient was discussed with the following: Hospitalist: Agrees to admit. Independent interpretation of the following test(s) in the Emergency Department X-Ray: My interpretation is Pulmonary edema seen on interpretation of x-ray images. Care significantly affected by the following chronic conditions: Chronic Kidney Disease. Counseling: I had a detailed discussion with the patient and/or guardian regarding the historical points, exam findings, and any diagnostic results supporting the discharge/admit diagnosis, lab results, radiology results, the need for further work-up and treatment in the hospital. 05/09 06:14 Order name: Basic Metabolic Panel; Complete Time: 08:07 sp4 05/09 06:14 Order name: CBC with Diff; Complete Time: 08:32 sp4 05/09 06:14 Order name: LFT's; Complete Time: 08:07 sp4 05/09 06:14 Order name: Magnesium; Complete Time: 08:07 sp4 05/09 06:14 Order name: NT PRO-BNP; Complete Time: 08:07 sp4 05/09 06:14 Order name: PT-INR; Complete Time: 07:53 sp4 05/09 06:14 Order name: Troponin HS; Complete Time: 08:07 sp4 05/09 06:32 Order name: COVID-19 SARS RT PCR; Complete Time: 07:53 sp4 05/09 06:32 Order name: Influenza Screen (a \T\ B); Complete Time: 08:07 sp4 05/09 07:27 Order name: CBC Smear Scan; Complete Time: 08:32 EDMS 05/09 09:35 Order name: NT PRO-BNP EDMS 05/09 09:35 Order name: Basic Metabolic Panel EDMS 05/09 09:35 Order name: Basic Metabolic Panel EDMS 05/09 09:35 Order name: Basic Metabolic Panel EDMS 05/09 09:35 Order name: Basic Metabolic Panel EDMS 05/09 09:35 Order name: Basic Metabolic Panel EDMS 05/09 09:35 Order name: Basic Metabolic Panel EDMS 05/09 09:35 Order name: CBC with Automated Diff EDMS 05/09 09:35 Order name: CBC with Automated Diff EDMS 05/09 09:35 Order name: CBC with Automated Diff EDMS 05/09 09:35 Order name: CBC with Automated Diff EDMS 05/09 09:35 Order name: CBC with Automated Diff EDMS 05/09 09:35 Order name: CBC with Automated Diff EDMS 05/09 09:35 Order name: Magnesium EDMS 05/09 09:35 Order name: Magnesium EDMS 05/09 09:35 Order name: Magnesium EDMS 05/09 09:35 Order name: Magnesium EDMS 05/09 09:35 Order name: Magnesium EDMS 05/09 09:35 Order name: Magnesium EDMS 05/09 09:35 Order name: Phosphorus EDMS 05/09 09:35 Order name: Phosphorus EDMS 05/09 09:35 Order name: Phosphorus EDMS 05/09 09:35 Order name: Phosphorus EDMS 05/09 09:35 Order name: Phosphorus EDMS 05/09 09:35 Order name: Phosphorus EDMS 05/09 09:35 Order name: Troponin High Sensitivity EDMS 05/09 09:35 Order name: Troponin High Sensitivity EDMS 05/09 09:35 Order name: Troponin High Sensitivity EDMS 05/09 09:38 Order name: Phosphorus; Complete Time: 14:19 EDMS 05/09 16:56 Order name: Glucose, Ancillary Testing EDMS 05/09 18:04 Order name: Hep B surface AG w/Reflex EDMS 05/09 18:04 Order name: Hepatitis B Surface Ab, QL/QN EDMS 05/09 19:16 Order name: Basic Metabolic Panel EDMS 05/09 22:02 Order name: Glucose, Ancillary Testing EDMS 05/09 22:54 Order name: Potassium [facility] 05/09 23:28 Order name: Glucose, Ancillary Testing [facility] 05/09 06:14 Order name: XRAY Chest (1 view) [facility] 05/09 06:14 Order name: EKG; Complete Time: 06:15 sp4 05/09 09:35 Order name: CONS Physician Consult [facility] 05/09 06:14 Order name: Cardiac monitoring; Complete Time: 06:32 sp4 05/09 06:14 Order name: EKG - Nurse/Tech; Complete Time: 07:37 sp4 05/09 06:14 Order name: IV Saline Lock; Complete Time: 06:59 sp4 05/09 06:14 Order name: Labs collected and sent; Complete Time: 06:59 sp4 05/09 06:14 Order name: O2 Per Protocol; Complete Time: 06:31 sp4 05/09 06:14 Order name: O2 Sat Monitoring; Complete Time: 06:31 sp4 EC:42 Rate is 88 beats/min. Rhythm is regular, Normal Sinus Rhythm with No ectopy. QRS [place] rt is Normal. CO interval is normal. QRS interval is normal. QT interval is normal. No Q waves. Clinical impression: NSR w/ Non-specific ST/T Changes. Administered Medications: 06:59 Drug: Diphenoxylate-Atropine PO 2 tabs PO once Route: PO; nw1 10:14 Follow up: Response: No adverse reaction eh3 06:59 Drug: Promethazine PO 25 mg PO once Route: PO; nw1 10:14 Follow up: Response: No adverse reaction eh3 09:27 Drug: fentaNYL (PF) IVP 50 mcg IVP once Route: IVP; Site: left antecubital; eh3 10:14 Follow up: Response: No adverse reaction; Pain is decreased; RASS: Restless (+1) eh3 Disposition Summary: 05/09/23 08:46 Hospitalization Ordered Notes: Hospitalization Status: Inpatient Admission rt Provider: Sudhakar Mendosa rt Condition: Fair rt Problem: new rt Symptoms: are unchanged rt Bed/Room Type: Standard rt Location: Telemetry/MedSurg (Inpatient)(05/09/23 22:28) eb1 Room Assignment: 221(05/09/23 22:28) eb1 Diagnosis - Diarrhea rt - Generalized weakness rt - End-stage renal disease rt - Metabolic acidosis rt Forms: - Medication Reconciliation Form rt - SBAR form rt - Leadership Thank You Letter rt Signatures: Dispatcher [employer] Jennifer Becerra Emily, RN RN eb1 Maida Patel RN RN eh3 Humza Burciaga MD MD rt Chino Shepherd MD MD sp4 Rosita Schroeder RN RN nw1 Corrections: (The following items were deleted from the chart) 15:32 08:46 Telemetry/MedSurg (Inpatient) rt bd 15:32 08:46 rt bd 22:28 15:32 [facility] ER HOLD bd eb1 22:28 15:32 ERHOLD- bd eb1
--- NOTE | 2023-05-09 08:46 | ER ---
Nurse's Notes [facility] Name: Meseret Gallego Age: 68 yrs Sex: Female : 1955 Arrival Date: 05/09/2023 Time: 06:06 Bed IV Therapy Private MD: Diagnosis: Diarrhea;Generalized weakness;End-stage renal disease;Metabolic acidosis Presentation: 05/09 06:10 Chief complaint: EMS states: BIBA for "explosive diarrhea" and generalized weakness. Pt nw1 missed HD on Sunday. Coronavirus screen: Client denies travel out of the [place] in the last 14 days. At this time, the client does not indicate any symptoms associated with coronavirus-19. Ebola Screen: Patient negative for fever greater than or equal to 101.5 degrees Fahrenheit, and additional compatible Ebola Virus Disease symptoms Patient denies exposure to infectious person. Patient denies travel to an Ebola-affected area in the 21 days before illness onset. Initial Sepsis Screen:. Initial Sepsis Screen: Does the patient meet any 2 criteria? RR > 20 per min. No. Patient's initial sepsis screen is negative. Does the patient have a suspected source of infection? No. Patient's initial sepsis screen is negative. Risk Assessment: Do you want to hurt yourself or someone else? Patient reports no desire to harm self or others. Onset of symptoms was May 07, 2023 at 10:30. 06:10 Method Of Arrival: EMS: [facility] nw1 06:10 Acuity: CHRISTOPHER 3 nw1 Triage Assessment: 06:25 General: Appears uncomfortable, obese, unkempt, Behavior is anxious, uncooperative. nw1 Pain: Complains of pain in abdomen Aggravated by eating, drinking. Cardiovascular: No deficits noted. Respiratory: Reports labored breathing since unknown. GI: Reports diarrhea. Musculoskeletal: Parent/caregiver report the patient having weakness in generalized. Historical: - Allergies: 06:25 Codeine; nw 06:25 Phenergan; 06:25 Tape; nw1 - Home Meds: 09:00 amlodipine 10 mg tab 1 tab once daily [Active]; aspirin 81 mg Oral capsule daily eh3 [Active]; atorvastatin 40 mg Oral tab 1 tab every day at bedtime [Active]; BRILINTA 90 mg Oral tab 1 tab 2 times per day [Active]; bupropion HCl 75 mg Oral tablet 2 times per day [Active]; clopidogrel 75 mg Oral tablet daily [Active]; furosemide 80 mg Oral tab 1 tab once daily [Active]; Humalog U-100 Insulin 100 unit/mL Sub-Q crtg 50 unit twice a day [Active]; Insulin: Regular Sub-Q [Active]; Lantus U-100 Insulin 100 unit/mL Sub-Q crtg [Active]; lisinopril 5 mg Oral tab 1 tab once daily [Active]; metoprolol tartrate 12.5 mg Oral tab 2 times per day [Active]; midodrine 10 mg Oral tab 1 tab 3 times per day [Active]; Protonix 40 mg Oral TbEC 1 tab once daily [Active]; sucralfate 1 gram Oral tab 1 tab 2 times per day [Active]; Synthroid 150 mcg Oral tablet 1 tab daily [Active]; Vitamin D Oral daily [Active]; Wellbutrin XL 150 mg Oral Tb24 1 tab once daily [Active]; - PMHx: 09:00 Diabetes - IDDM; Dialysis; Hypercholesterolemia; Hypertension; Hypothyroidism; eh3 Myocardial infarction; - PSHx: 09:00 2 heart stents; back; section; Coronary artery bypass graft; knee; neck; eh3 - Immunization history:: Adult Immunizations up to date. - Social history:: Smoking status: Patient reports the use of cigarette tobacco products. - Family history:: not pertinent. Screenin:28 [facility] ED Fall Risk Assessment (Adult) History of falling in the last 3 months, nw1 including since admission Yes- fall prone (multiple falls) (3 pts) Confusion or Disorientation No (0 pts) Intoxicated or Sedated No (0 pts) Impaired Gait Yes (1 pt) Mobility Assist Device Used Yes (1 pt) Altered Elimination No (0 pt) Score/Fall Risk Level 3 or more points = High Risk Oriented to surroundings, Maintained a safe environment, Educated pt \\T\\ family on fall prevention, incl call for assistance when getting out of bed, Assessed \\T\\ reinforced patient's understanding of fall precautions, Provided non-skid footwear, Hourly rounding (assess needs \\T\\ fall precautionary measures) done, Used ambulatory aids as needed (educated on \\T\\ assisted with), Used gait belt as appropriate. Abuse screen: Denies threats or abuse. Denies injuries from another. Nutritional screening: No deficits noted. Tuberculosis screening: No symptoms or risk factors identified. Assessment: 06:28 Reassessment: See triage note. General: Appears uncomfortable, obese, unkempt, Behavior nw1 is anxious, restless. 06:28 Reassessment: Quick assessment completed . Pt noted with multiple wounds. Noted nw1 pressure sores on bottom, heel of feet. Recent post op surgical scars on chest. Pt noted with dried feces on fingers and various areas of body. 21:30 General: Appears uncomfortable, Behavior is restless. Pain: Complains of pain in right ha1 leg and left leg Pain does not radiate. Pain currently is 10 out of 10 on a pain scale. Neuro: Level of Consciousness is awake, alert, obeys commands, Oriented to person, place. Cardiovascular: Capillary refill < 3 seconds. Respiratory: Airway is patent Respiratory effort is even, unlabored, Respiratory pattern is regular, symmetrical. Derm: Wound noted coccyx, left gluteus kevin, right gluteus kevin, right foot and left foot. Musculoskeletal: Circulation, motion, and sensation intact. 23:10 Reassessment: attempted to give report. [facility] 05/10 00:02 Reassessment: Reassessment: report given to PERRI Liu. [facility] Vital Signs: 05/09 06:10 Pulse 87; Resp 21; Temp 97.9(O); Pulse Ox 97% on R/A; Pain 8/10; nw1 06:32 BP 115 / 42; Pulse 85; Resp 18; Pulse Ox 96% ; Weight 86.18 kg; Height 5 ft. 6 in. ; nw1 07:35 BP 125 / 60; Pulse 87; Resp 22; Pulse Ox 96% on R/A; tm6 07:42 Temp 97.7(TE); tm6 21:30 BP 112 / 58; Pulse 79; Resp 18 S; Pulse Ox 96% on R/A; ha1 23:00 BP 132 / 65; Pulse 85; Resp 20 S; Pulse Ox 96% on R/A; ha1 06:32 Body Mass Index 30.67 (86.18 kg, 167.64 cm) [facility] 06:10 Pain Scale: Adult nw Alborn Coma Score: 06:28 Eye Response: spontaneous(4). Motor Response: obeys commands(6). Verbal Response: nw1 oriented(5). Total: 15. ED Course: 06:09 Patient arrived in ED. rv1 06:10 Rosita Schroeder, PERRI is Primary Nurse. nw1 06:14 Chino Shepherd MD is Attending Physician. sp4 06:25 Triage completed. nw1 06:25 Arm band placed on left wrist. nw1 06:28 XRAY Chest (1 view) In Process Unspecified. EDMS 06:28 Patient has correct armband on for positive identification. Placed in gown. Bed in low nw1 position. Call light in reach. Side rails up X2. Adult w/ patient. Provided Education on: POC. Client placed on continuous cardiac and pulse oximetry monitoring. NIBP monitoring applied. Door closed. Noise minimized. Warm blanket given. Pillow given. Verbal reassurance given. 06:28 No provider procedures requiring assistance completed. nw1 06:59 Attending Physician role handed off by Chino Shepherd MD rt 06:59 Humza Burciaga MD is Attending Physician. rt 06:59 Influenza Screen (a \\T\\ B) Sent. nw1 06:59 COVID-19 SARS RT PCR Sent. nw1 06:59 Basic Metabolic Panel Sent. nw1 06:59 CBC with Diff Sent. nw1 06:59 LFT's Sent. nw1 06:59 Magnesium Sent. nw1 06:59 NT PRO-BNP Sent. nw1 06:59 PT-INR Sent. nw1 06:59 Troponin HS Sent. nw1 07:00 Attending Physician role handed off by Humza Burciaga MD sp4 07:00 Chino Shepherd MD is Attending Physician. sp4 07:14 Attending Physician role handed off by Chino Shepherd MD rt 07:14 Humza Burciaga MD is Attending Physician. rt 08:04 Notified ED physician of a critical lab result(s). Troponin 69.8. ld1 08:45 Sudhakar Mendosa is Hospitalizing Provider. rt 09:00 Patient admitted, IV remains in place. eh3 10:45 Notified ED physician of a critical lab result(s). phosphorus 11.8. ll1 21:30 Report received from PERRI Bey. ha1 Administered Medications: 06:59 Drug: Diphenoxylate-Atropine PO 2 tabs PO once Route: PO; nw1 10:14 Follow up: Response: No adverse reaction eh3 06:59 Drug: Promethazine PO 25 mg PO once Route: PO; nw1 10:14 Follow up: Response: No adverse reaction eh3 09:27 Drug: fentaNYL (PF) IVP 50 mcg IVP once Route: IVP; Site: left antecubital; eh3 10:14 Follow up: Response: No adverse reaction; Pain is decreased; RASS: Restless (+1) 3 Medication: 06:28 VIS not applicable for this client. nw1 Outcome: 08:46 Decision to Hospitalize by Provider. rt 09:00 Admitted to ER Hold. Please see [facility] for further documentation. [facility] 09:00 Condition: stable 09:00 Instructed on the need for admit, 1102 00:46 Patient left the ED. ls5 Signatures: Dispatcher [employer] EDDeb Hooper RN RN ll1 Marcia Crespo RN RN 1 Maida Patel RN RN 3 Payal Smith RN RN ha1 Humza Burciaga MD MD rt Meseret Linder rv1 Kamron Schmitt ls5 Chino Shepherd MD MD sp4 Roger Stewart RN RN tm6 Rosita Schroeder RN RN nw1 Corrections: (The following items were deleted from the chart) 04:16 00:02 Reassessment: [place] [id number]
--- NOTE | 2023-05-09 09:59 | P.HP ---
Certification for Inpatient Patient admitted to: Inpatient With expected LOS: >2 Midnights Patient will require the following post-hospital care: None Practitioner: I am a practitioner with admitting privileges, knowledge of patient current condition, hospital course, and medical plan of care. Services: Services provided to patient in accordance with Admission requirements found in Title 42 Section 412.3 of the Code of Federal Regulations <Caitlin Carbajal - Last Filed: 05/09/23 16:11> Patient History Date of Service: 05/09/23 Reason for admission: ESRD History of Present Illness: Meseret Gallego is a 68-year-old female with past medical history of ESRD (HD MWF), CAD status post CABG, HTN, DM2, acute on chronic CHF, diabetic neuropathy, hyperlipidemia, diabetic sores on the feet, and hypothyroidism, who presents to the ED with nausea, vomiting, and profuse diarrhea that started 2 days ago. Meseret reports moderate watery stools without blood, she reports missing dialysis Sunday due to weakness. Meseret was previously admitted 04/22/2023 for acute respiratory failure with hypoxia and [id number]. On examination, Meseret had increased WOB, unable to complete a sentence, and felt like she was strangled in the hospital gown. Lungs sound with rhonchi bilaterally. Initial vitals BP 115/42, heart rate 85, respirations 18, pulse ox 96% on room air, temperature 97.7. Significant labs troponin 69.8, BNP >175,000, CO2 11, BUN/creatinine 122/8.14. CXR "The lungs are well-expanded. There is very mild perihilar interstitial prominence which may reflect vascular congestion. The lateral costophrenic sulci are grossly clear. There is no evidence of pneumothorax" Meseret will be admitted to hospitalist service for further evaluation and treatment. Consulted Dr. Flores. - Past Medical/Surgical History Diabetic: Yes -: IDDM -: Hypertension -: Hypothyroidism -: ESRD HD MWF -: hyperlipidemia -: depression -: Paralyzed Stomach -: Neuropathy -: CAD -: Back fusion -: bilateral total knee replacements -: bilateral carpal tunnel sx -: c section -: thyroidectomy -: neck fusion -: PD Cath then removed -: Cholecystectomy Psychosocial/ Personal History: Patient lives at [facility]. - Family History Mother -: Heart disease, Hypertension, Lung disease, Cancer Notes: breast ca Father -: Heart disease, Hypertension, Other (see notes) Notes: Alzheimer's - Social History Alcohol use: No CD- Drugs: No Caffeine use: Yes <Caitlin Carbajal - Last Filed: 05/09/23 16:11> Date of Service: 05/10/23 <haydee smith - Last Filed: 05/10/23 17:21> Allergies codeine Allergy (Intermediate, Verified 08/04/22 13:31) Itching promethazine [From Phenergan] Allergy (Intermediate, Verified 08/04/22 13:31) Itching adhesive tape Adverse Reaction (Verified 08/04/22 13:31) Itching/Hives/Rash Home Medications: Metoprolol Succinate [Toprol Xl*] 12.5 mg PO BID 6AM 6PM tab 06/21/22 Cyclobenzaprine [Flexeril*] 10 mg PO TID PRN #30 tab 09/16/22 Collagenase [Santyl Ointment*] 1 appl TOP DAILY #1 tube 10/26/22 Amlodipine [Norvasc*] 10 mg PO DAILY 01/28/23 Ticagrelor [Brilinta*] 90 mg PO BID 01/28/23 Amino Acids/Protein Hydrolys [Prosource No Carb Liquid Pkt] 30 ml PO BID #60 packet 02/02/23 Hydrocodone 10/APAP 325 [[place] 10/325*] 1 tab PO Q6H PRN #30 tab 02/02/23 Silver Sulfadiazine Crm [Silvadene*] 1 appl TOP BID #1 jar 02/02/23 Albuterol Neb [Proventil 0.083% Neb Soln] 2.5 mg NEB [id number] PRN #120 amp 04/25/23 Ipratropium Neb [Atrovent*] 0.5 mg NEB [id number] PRN #120 amp 04/25/23 Loratadine [Claritin*] 10 mg PO DAILY PRN #30 tab 04/25/23 Mupirocin Oint [Bactroban 2% Ointment*] 1 appl TOP BID #1 tube 04/25/23 Nystatin Cream [Mycostatin 100MU/Gm Cream*] 1 appl TOP BID #1 tube 04/25/23 Atorvastatin Calcium 1 tab PO BEDTIME 05/09/23 Bupropion HCl [Wellbutrin] 1 tab PO BID 05/09/23 Clopidogrel Bisulfate [Plavix*] 1 tab PO DAILY 05/09/23 Furosemide 80 mg PO DAILY 05/09/23 Insulin Lispro [Humalog] 50 unit SQ BID 05/09/23 Levothyroxine Sodium [Synthroid] 150 mcg PO DAILY 05/09/23 Lisinopril [Zestril] 5 mg PO DAILY 05/09/23 Midodrine HCl 10 mg PO TID 05/09/23 Pantoprazole Sodium [Protonix] 40 mg PO DAILY 05/09/23 Sucralfate [Carafate] 1 gm PO BID 05/09/23 Review of Systems General: Weakness, Malaise Eyes: Unremarkable ENT: Unremarkable Respiratory: Cough, Shortness of Breath, Other (rhonchi) Cardiovascular: Unremarkable Gastrointestinal: Nausea, Vomiting, Diarrhea Genitourinary: Unremarkable Musculoskeletal: Unremarkable Integumentary: Other (Itching) <Caitlin Carbajal - Last Filed: 05/09/23 16:11> Physical Examination - Physical Exam General: Alert, Oriented x3, Severe distress HEENT: Atraumatic, Normocephalic, PERRLA Neck: Supple, 2+ carotid pulse no bruit, JVD not distended Respiratory: Rhonchi/gurgles Cardiovascular: No edema, Normal pulses, Regular rate/rhythm, Normal S1 S2, Other (hypotensive) Capillary refill: <2 Seconds Gastrointestinal: Soft and benign, Hyperactive Musculoskeletal: No clubbing, No swelling, No contractures Integumentary: Skin breakdown (left calf, bilateral feet, right forearm), Erythema, Diabetic ulcer (bilateral feet) - Studies Laboratory Data (last 24 hrs) 05/09/23 05/09/23 05/09/23 06:50 06:50 06:50 WBC 9.10 Hgb 9.8 L Hct 30.6 L Plt Count 122 L PT 13.7 H INR 1.25 Sodium 142 Potassium 4.5 BUN 122 H Creatinine 8.14 H Glucose 116 H Magnesium 1.9 Total Bilirubin 0.9 AST 28 ALT 17 Alkaline Phosphatase 73 Microbiology Data (last 24 hrs): 05/09/23 06:48 Nasopharnyx Influenza Type A Antigen Screen - Final 05/09/23 06:48 Nasopharnyx Influenza Type B Antigen Screen - Final <Caitlin Carbajal - Last Filed: 05/09/23 16:11> Assessment and Plan - Plan Assessment and Plan ESRD Pulmonary Edema Fluid volume overload BUN/Creatinine 122/8.14, GFR 17 BNP >175,[address] Flores Dialysis today NSTEMI Troponin 69.9, trending EKG with nonspecific T wave abnormalities Hypotensive BP 91/79 dialysis today, will follow up Metabolic acidosis Hyperphosphatemia CO2 11 dialysis today monitor labs in the AM Nausea/vomitting/perfuse diarrhea C diff pending Full code DVT pxx: heparin TID LOS 2-3 days Discharge Plan: Home Plan to discharge in: 48 Hours - Advance Directives Does patient have a Living Will: No Does patient have a Durable POA for Healthcare: No <Caitlin Carbajal - Last Filed: 05/09/23 16:11> - Plan Patient seen and examined. Missed hemodialysis. Metabolic acidosis stating urgent hemodialysis. Metabolic encephalopathy Elevated troponin likely secondary to decreased renal clearance. Nephrology consulted for hemodialysis <haydee smith - Last Filed: 05/10/23 17:21>
[2023-05-09] MEDS ORDERED: FUROSEMIDE 40 MG/4 ML VIAL IV ONE (10:00)
[2023-05-09] MEDS: HEPARIN 5000 UNIT/ML 1 ML VIAL SQ SCH ×2 (10:00→21:00)
[2023-05-09 10:04] VITALS: BMI 30.7
[2023-05-09] MEDS ORDERED: HEPARIN 5000 UNIT/ML 1 ML VIAL ONE ×2 (11:14→21:41)
[2023-05-09] MEDS: INSULIN REGULAR (HUMAN) 100 UNIT/ML SQ SCH ×3 (11:30→21:00)
[2023-05-09] MEDS: SEVELAMER CARBONATE 800 MG TABLET PO SCH ×2 (12:00→17:00)
[2023-05-09] MEDS: ALBUMIN HUMAN 25% 100 ML IV ONE ×2 (12:15)
--- NOTE | 2023-05-09 12:41 | CON ---
Date of Consultation: 05/09/2023 Reason For Consultation: Elevated BUN and creatinine, acidosis, over volume, end-stage renal disease. History Of Present Illness: This is a pleasant 68-year-old female, well known to me from dialysis with significant past medical history of: 1. Diabetes, complicated with neuropathy and nephropathy, on dialysis. 2. Hypertension. 3. Hyperlipidemia. 4. PAD status post toe and finger amputation. 5. Severe neuropathy. 6. End-stage renal disease, on hemodialysis Sunday, Sunday, Sunday at [facility]. 7. Hyperlipidemia. 8. CAD status post PTCA. The patient apparently has diarrhea for the last couple of days. For that reason, she missed dialysis. The patient last dialysis almost a week ago. The patient came to the hospital with shortness of breath, gasping for air, found to have acidosis and over volume. For that reason, we have been consulted. Past Medical History: Includes: 1. Diabetes complicated with neuropathy, nephropathy. 2. End-stage renal disease, on hemodialysis Sunday, Sunday, Sunday, missed dialysis. 3. Hyperlipidemia. 4. Hypertension. 5. CAD status post PTCA. 6. Chronic wound. Past Surgical History: Includes: 1. PermCath placement. 2. PD placement and removal. 3. PTCA. 4. EGD. 5. Graft on the skin wound. Allergies: NO KNOWN DRUG ALLERGY. Family History: Positive for diabetes, hypertension. Social History: Denied smoking. Denied drinking. Denied drugs abuse. Review of Systems: Head and Neck: No red eye. No ear pain. GI: Has nausea. Has diarrhea. : No polyuria, no dysuria, no hematuria. 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 Respiratory: Has shortness of breath. Cardiovascular: Has leg swelling. Has orthopnea. Endocrine: No polydipsia. Skin: No rash. Neuro: Has severe neuropathy. Musculoskeletal: Has leg pain. Physical Examination: Vital Signs: When I saw the patient, blood pressure of 100/75, pulse of 84, afebrile. Chest: Crackles bilateral. Heart: S1, S2, systolic murmur. Abdomen: Soft, mild tender, no guarding, no rebound. Extremities: +1 edema. Neuro: Confused. No focality. Lab: Hemoglobin 9.8, WBC 9.1. Sodium 142, potassium 4.5, bicarb 11, chloride 111, BUN 122, creatinine 8.1. Calcium 7.5, phosphorus 11.5. Albumin is 2.5, corrected calcium is 8.7. Current Medications: Include heparin, Lasix. Assessment And Plan: 1. End-stage renal disease, over volume, missed dialysis with acidosis, uremic. I am going to go ahead and arrange for urgent dialysis today. We will challenge the patient and we will do another session of dialysis tomorrow. We will continue to challenge the patient and we will follow up. 2. Hypertension. Currently blood pressure on low side. We will hold all blood pressure medications. 3. Anemia of chronic kidney disease. Continue XENIA. 4. Secondary hyperpara. We will resume binder. 5. Diarrhea. We will send for workup. 6. Marginal low blood pressure with possible sepsis. We will start the patient on vancomycin. We will send for C diff. I am going to send for blood culture from the catheter. 7. Acidosis. High anion gap metabolic acidosis secondary to renal failure/GI loss. Will be corrected with dialysis. 8. Uremia. We will dialyze the patient daily. 9. Over volume. The patient going to be challenged on dialysis. time spent examining the patient [id number] reviewing that her lab and the radiology placing order discussing the case with the patient discussing the case with the seafood team member including hospitalists and nursing staff more than 75 minutes CR Voice ID: [id number] Report ID: [id number] ASHOK
[2023-05-09] MEDS ORDERED: INFLUENZA VACCINE (for 6+ mo) 0.5 ML DOSE IMVAC ONE (13:00)
[2023-05-09] MEDS: EPOETIN ALFA 10,000 UNIT/ML VIAL IV SCH (13:30)
--- NOTE | 2023-05-09 14:17 | RAD REPORT ---
EXAM DESCRIPTION: X-ray single view chest. CLINICAL HISTORY: 68 years Female, ABDOMINAL DISTENTION COMPARISON: Prior chest x-ray report from 04/23/2023. The image was not available for review. TECHNIQUE: Single portable x-ray view of the chest performed on 05/09/2023 at 6:22 AM FINDINGS: The lungs are well-expanded. There is very mild perihilar interstitial prominence which ma y reflect vascular congestion. The lateral costophrenic sulci are grossly clear. There is no evidence of a pneumothorax. The cardiac silhouette is prominent and may be partly accentuated by the portable technique. There ar e postsurgical changes of the mediastinum. The mediastinal contours are normal. No acute osseous abnormality is identified. There are remote postsurgical changes of the lower cervic al spine. No acute soft tissue abnormalities are seen. Occasional vascular calcifications are noted. There are surgical clips projecting over the left upper extremity. Lines and tubes: The right IJ central venous catheter tip terminates in the region of the superior vena cava. Free air: None IMPRESSION: 1. Mild perihilar interstitial prominence which may reflect vascular congestion. 2. Prior median sternotomy. 3. Right IJ central venous catheter tip terminates in the region of the superior vena cava. Electronically signed by: Rosie Nicholas DO 05/09/2023 6:50 AM CDT Due to temporary technical issues with the PACS/Fluency reporting system, reports are being signed by the in house radiologists without review as a courtesy to insure prompt reporting. The interpreting radiologist is fully responsible for the content of the report.
[2023-05-09] MEDS: FENTANYL CITR 100 MCG/2 ML IV PRN ×2 (17:20→22:01)
[2023-05-09 18:03] LABS: Hepatitis B Surface Ab - Quant 10.43 mIU/mL (<8.0); Hepatitis B surface AG Interp. Nonreactive (Nonreactive)
[2023-05-09 19:13] LABS: Potassium 3.2 mEq/L (3.5-5.1)
[2023-05-09] MEDS ORDERED: FENTANYL CITR 100 MCG/2 ML ONE (21:56)
[2023-05-09] MEDS ORDERED: KCL 20 MEQ/100 mL IVPB 20 MEQ/100 ML BAG IV ONE (22:00)
[2023-05-09] MEDS ORDERED: DEXTROSE ORAL 40% 15 GM TUBE ONE (22:01)
[2023-05-09] MEDS ORDERED: D10W 250 ML IV ONE (22:03)
[2023-05-09] MEDS: DEXTROSE 10%-WATER 500 ML IV SCH (22:04)
[2023-05-09 22:51] LABS: Potassium 3.3 mEq/L (3.5-5.1)
[2023-05-09 22:54] LABS: Troponin High Sensitivity 74.5 pg/mL (<58.9)
[2023-05-10] MEDS: DEXTROSE 10%-WATER 500 ML IV SCH ×3 (00:59→17:22)
[2023-05-10] MEDS ORDERED: FENTANYL CITR 100 MCG/2 ML IV ONE (02:00)
[2023-05-10] MEDS: FENTANYL CITR 100 MCG/2 ML IV PRN ×2 (06:40→13:54)
[2023-05-10] MEDS: INSULIN REGULAR (HUMAN) 100 UNIT/ML SQ SCH ×4 (07:30→21:00)
[2023-05-10 07:58] LABS: Absolute Lymphocytes (CBC) 0.3 K/uL (0.7-4.9); Hematocrit 27.5 % (36.0-45.0); Lymphocytes % 4.9 % (15.3-44.8); MCV 90.5 fL (80-100); Platelets 94 thou/uL (152-406); RBC Red Blood Cell Count 3.04 M/uL (3.86-4.86)
[2023-05-10] MEDS: HEPARIN 5000 UNIT/ML 1 ML VIAL SQ SCH (08:16)
[2023-05-10] MEDS: SEVELAMER CARBONATE 800 MG TABLET PO SCH ×3 (08:16→17:22)
[2023-05-10 08:36] LABS: Albumin 2.3 g/dL (3.4-5.0); Magnesium 1.6 mg/dL (1.6-2.4); Phosphorus 7.4 mg/dL (2.5-4.9); Potassium 3.4 mEq/L (3.5-5.1)
[2023-05-10] MEDS: POTASSIUM CL SA 10 MEQ TAB PO ONE ×2 (08:42→09:40)
[2023-05-10 08:50] LABS: White Blood Cell Scan OK (OK)
[2023-05-10 08:51] LABS: Blood Morphology Comment NOT SEEN (NOT SEEN); Platelet Estimate DECR
--- NOTE | 2023-05-10 09:50 | EKG ---
Test Date: 2023-05-09 Test Time: 07:25:39 Drycleaner: GASTON MEASUREMENT RESULTS: Intervals: Rate: 88 CT: 180 QRSD: 110 QT: 432 QTc: 522 [place]: P: 76 CT: 180 QRS: 54 T: -56 INTERPRETIVE STATEMENTS: Normal sinus rhythm Low voltage QRS Nonspecific T wave abnormality Abnormal ECG Compared to ECG 04/23/2023 09:44:07 T-wave abnormality now present Sinus bradycardia no longer present Myocardial infarct finding no longer present Electronically Signed On 05-10-23 09:46:34 CDT by Imer Lantigua
--- NOTE | 2023-05-10 10:16 | RAD REPORT ---
EXAM DESCRIPTION: RAD - Forearm Right - 05/10/2023 10:03 am CLINICAL HISTORY: PAIN COMPARISON: <Comparisons> FINDINGS: Heavy vascular calcifications are present with surgical clips at the level of the antecubi verónica fossa. Mild radiocarpal degenerative changes are present. Small olecranon spur is evident. No acu te fracture or dislocation seen.
[2023-05-10] MEDS: AMINO ACIDS/PROTEIN HYDROLYS 30 ML LIQUID.PKT PO SCH ×2 (12:00→21:00)
--- NOTE | 2023-05-10 12:03 | P.PN ---
Subjective Date of Service: 05/10/23 Chief Complaint: ESRD Subjective: Other (c/o right arm pain, unable to move freely, right hand swelling) HPI 05/09: Meseret Gallego is a 68-year-old female with past medical history of ESRD (HD MWF), CAD status post CABG, HTN, DM2, acute on chronic CHF, diabetic neuropathy, hyperlipidemia, diabetic sores on the feet, and hypothyroidism, who presents to the ED with nausea, vomiting, and profuse diarrhea that started 2 days ago. Meseret reports moderate watery stools without blood, she reports missing dialysis Sunday due to weakness. Meseret was previously admitted 04/22/2023 for acute respiratory failure with hypoxia and [id number]. On examination, Meseret had increased WOB, unable to complete a sentence, and felt like she was strangled in the hospital gown. Lungs sound with rhonchi bilaterally. Initial vitals BP 115/42, heart rate 85, respirations 18, pulse ox 96% on room air, temperature 97.7. Significant labs troponin 69.8, BNP >175,000, CO2 11, BUN/creatinine 122/8.14. CXR "The lungs are well-expanded. There is very mild perihilar interstitial prominence which may reflect vascular congestion. The lateral costophrenic sulci are grossly clear. There is no evidence of pneumothorax" Meseret will be admitted to hospitalist service for further evaluation and treatment. Consulted Dr. Flores. 05/10: Meseret was taken for emergency dialysis at admission yesterday (05/09). Meseret is c/o right arm pain and has decreased ROM requiring her to pick her arm up with her left hand. Right arm xray ordered with US to right arm as well. She is very uncomfortable in bed. <Caitlin Carbajal - Last Filed: 05/10/23 13:35> Date of Service: 05/10/23 <haydee smith - Last Filed: 05/10/23 16:30> Review of Systems Musculoskeletal: Hand Pain (right wrist and hand pain, unable to move right arm freely) <Caitlin Carbajal - Last Filed: 05/10/23 13:35> Physical Examination - Vital Signs Temperature: 97.7 F Blood Pressure: 105/53 Pulse: 90 Respirations: 16 Pulse Ox (%): 94 - Studies Microbiology Data (last 24 hrs): 05/09/23 06:48 Nasopharnyx Influenza Type A Antigen Screen - Final 05/09/23 06:48 Nasopharnyx Influenza Type B Antigen Screen - Final <Caitlin Carbajal - Last Filed: 05/10/23 13:35> Assessment And Plan - Plan Physical Exam General: Alert, Oriented x3, Severe distress HEENT: Atraumatic, Normocephalic, PERRLA Neck: Supple, 2+ carotid pulse no bruit, JVD not distended Respiratory: Rhonchi/gurgles Cardiovascular: No edema, Normal pulses, Regular rate/rhythm, Normal S1 S2, Other (hypotensive) Capillary refill: <2 Seconds Gastrointestinal: Soft and benign, Hyperactive Musculoskeletal: Right arm weakness, swelling to right hand Integumentary: Skin breakdown (left calf, bilateral feet, right forearm), Erythema, Diabetic ulcer (bilateral feet) Assessment and Plan ESRD Pulmonary Edema Fluid volume overload BUN/Creatinine 66/5.39, GFR 8 BNP >175,000 Dr. Flores managing Dialysis today NSTEMI Troponin 69.9, 74.1 EKG with nonspecific T wave abnormalities asa, statin, ECHO Right arm pain Decreased mobility, hand swelling xray: Heavy vascular calcifications are present with surgical clips at the level of the antecubital fossa. Mild radiocarpal degenerative changes are present. Small olecranon spur is evident. No acute fracture or dislocation seen US to right arm pending Hypotensive BP stable dialysis today, will follow up Metabolic acidosis Hyperphosphatemia CO2 21, resolved phos 7.4, improving dialysis today monitor labs in the AM Nausea/vomitting/perfuse diarrhea C diff pending Full code DVT pxx: heparin TID LOS 2-3 days Discharge Plan: Home Plan to discharge in: 48 Hours Time Spent Managing PTS Care (In Minutes): 35 <Caitlin Carbajal - Last Filed: 05/10/23 13:35> - Plan Patient seen and examined. She appears somnolent. Metabolic acidosis resolved. Stable vitals. Diagnosis: Metabolic encephalopathy End-stage renal disease on hemodialysis Metabolic acidosis Missed dialysis. Lower extremity ulcers Plan: Nephrology input appreciated. Status post hemodialysis. Further hemodialysis per nephrology. Local wound care-wound care team input appreciated. <haydee smith - Last Filed: 05/10/23 16:30>
[2023-05-10] MEDS ORDERED: Magnesium Sulfate 2gm IVPB 2 G/50 ML BAG IV ONE (13:19)
--- NOTE | 2023-05-10 13:44 | PN ---
Date of Progress Note: 05/10/2023 Subjective: Patient was admitted to the hospital with leukocytosis, altered mental status, and fall. Patient had missed dialysis for almost a week. Patient was overvolume. Patient was started on ses chelo yesterday, tolerated the dialysis well. We managed to remove 2 L. Patient is complaining of sh oulder pain. Physical Examination: Vital Signs: Blood pressure 105/53, pulse of 90, afebrile. Chest: Crackles bilateral. Heart: S1, S2. Systolic murmur. Abdomen: Soft, nontender. Extremities: Middle finger amputation, multiple metatarsal amputation, dressing on both feet, +1 vick ma. Neuro: Pleasantly confused. Faint tremor. Laboratory Data: Hemoglobin 8.9. Sodium 140, potassium 3.4, bicarb 20, BUN 66, creatinine 5.3, calc ium 7.1. Phosphorus 7.4, magnesium 1.6. Albumin 2.3. Corrected calcium is 8.3. Current Medications: The patient is on include: 1.Heparin. 2.Renvela. 3.Lasix. 4.TPN. Assessment And Plan: 1.End-stage renal disease uremic with overvolume and hypokalemia. I am going to go ahead and arrang e for another session of dialysis today. Patient is going to be dialyzed on high potassium bath givi ng the hypokalemia and we will try to challenge the patient again. 2.Anemia of chronic kidney disease. Continue XENIA. 3.Secondary hyperparathyroidism. I am going to resume Renvela. 4.Altered mental status secondary to uremia. Continue dialysis. Patient is going to go back to her regular dialysis starting tomorrow and we will follow up. 5.Leukocytosis, possible sepsis. Culture still pending. We will continue to monitor. 6.Anasarca, overvolume. We will challenge the patient with daily dialysis. 7.Acidosis, recovered with dialysis. 8.Hyponatremia will be corrected with dialysis. MA/MODL Voice ID: [id number] Report ID: [id number]
--- NOTE | 2023-05-10 19:09 | RAD REPORT ---
EXAM DESCRIPTION: US - UPPER EXTREMITY VENOUS UNILATE - 05/10/2023 4:38 pm CLINICAL HISTORY: Swelling right hand COMPARISON: None. TECHNIQUE: Real-time sonographic evaluation of the right upper extremity deep venous system was perf ormed. FINDINGS: Partially occlusive hypoechoic clot material seen in the right internal jugular vein, whic h is partially compressible. This appears to be above the level of the dialysis catheter. Normal comp ressibility, flow augmentation, phasic flow and spontaneous flow is identified throughout the remaind er of the right upper extremity deep venous system. IMPRESSION: Subocclusive clot within the right internal jugular vein, above the level of the dialysi s catheter.
--- NOTE | 2023-05-10 19:10 | RAD REPORT ---
EXAM DESCRIPTION: US - Upper Ext Artery Uni Greg - 05/10/2023 4:36 pm CLINICAL HISTORY: swelling to right hand COMPARISON: Extremity Venous Uni Ltd dated 11/30/2022 TECHNIQUE: Right upper extremity arterial Doppler examination was performed with waveform tracing. FINDINGS: Triphasic waveforms are seen throughout the right upper extremity arterial system to the level of the brachial artery. Monophasic flow is seen along the right radial and ulnar arteries. IMPRESSION: Mild peripheral vascular disease along the forearm.
[2023-05-10] MEDS: MIDODRINE HCL 5 MG TABLET PO SCH ×2 (20:54→21:00)
[2023-05-10] MEDS: ATORVASTATIN 40 MG TAB PO SCH (20:54)
[2023-05-11] MEDS: DEXTROSE 10%-WATER 500 ML IV SCH ×2 (05:36→14:15)
[2023-05-11 06:55] LABS: Absolute Lymphocytes (CBC) 0.3 K/uL (0.7-4.9); Hematocrit 28.9 % (36.0-45.0); MCV 89.8 fL (80-100); Platelets 96 thou/uL (152-406); RBC Red Blood Cell Count 3.22 M/uL (3.86-4.86)
[2023-05-11 07:23] LABS: Albumin 2.2 g/dL (3.4-5.0); Phosphorus 8.4 mg/dL (2.5-4.9); Potassium 3.8 mEq/L (3.5-5.1)
[2023-05-11] MEDS: INSULIN REGULAR (HUMAN) 100 UNIT/ML SQ SCH ×4 (07:30→21:00)
[2023-05-11 07:52] LABS: Blood Morphology Comment NOT SEEN (NOT SEEN); White Blood Cell Scan OK (OK)
[2023-05-11 07:53] LABS: Platelet Estimate DECR
[2023-05-11] MEDS: SEVELAMER CARBONATE 800 MG TABLET PO SCH ×3 (08:00→17:39)
[2023-05-11] MEDS: AMINO ACIDS/PROTEIN HYDROLYS 30 ML LIQUID.PKT PO SCH ×2 (09:00→21:00)
[2023-05-11] MEDS: MIDODRINE HCL 5 MG TABLET PO SCH ×3 (09:00→21:27)
[2023-05-11] MEDS ORDERED: ASPIRIN EC 81 MG TAB PO SCH (09:00)
[2023-05-11] MEDS: HEPARIN 5000 UNIT/ML 1 ML VIAL SQ SCH ×2 (09:00→21:26)
[2023-05-11] MEDS ORDERED: MEDIHONEY 44 ML TOPICAL TUBE TOP SCH (09:00)
[2023-05-11] MEDS: ALBUMIN HUMAN 25% 100 ML IV ONE ×2 (09:20→10:00)
[2023-05-11] MEDS: EPOETIN ALFA 10,000 UNIT/ML VIAL IV SCH (12:45)
--- NOTE | 2023-05-11 14:26 | P.PN ---
Subjective Date of Service: 05/11/23 Chief Complaint: ESRD Subjective: Other (Received HD today.) Physical Examination - Vital Signs Temperature: 98.0 F Blood Pressure: 143/85 Pulse: 56 Respirations: 16 Pulse Ox (%): 91 - Physical Exam General: Other (chronically ill-appearing) HEENT: Atraumatic, Normocephalic Neck: Supple Respiratory: Other (symmetric chest expansion) Cardiovascular: No rubs, No murmurs Gastrointestinal: Soft and benign Musculoskeletal: No clubbing Integumentary: No warmth Neurological: Normal speech, Normal tone Lymphatics: No axilla or inguinal lymphadenopathy Urinary: Other (no bladder distention) External genitalia: Deferred Rectal: Deferred Assessment And Plan - Plan 1. End-stage renal disease on outpt HD MWF. HD received today. May receive HD tomorrow if she's still here 2. Anemia of chronic kidney disease. Continue XENIA. 3. Renal osteodystrophy. Monitor serum calcium and phosphorus. 4. Altered mental status secondary to uremia. Improved. Continue dialysis. Patient is going to go back to her regular dialysis starting tomorrow and we will follow up. 5. Hyponatremia will be corrected with dialysis. 6. Subocclusive clot within the right internal jugular vein, . Eliquis po bid, renally dosed, x 3mos. 7. Dispo. Ok to dc today.
--- NOTE | 2023-05-11 16:28 | P.DS ---
Admission Date: 05/09/23 Discharge Date: 05/11/23 Reason for Admission: ESRD - Problems (1) Jugular vein occlusion, right Status: Acute (2) Chronic kidney disease, stage 4 (severe) Status: Acute Brief History of Present Illness: Meseret Gallego is a 68-year-old female with past medical history of ESRD (HD MWF), CAD status post CABG, HTN, DM2, acute on chronic CHF, diabetic neuropathy, hyperlipidemia, diabetic sores on the feet, and hypothyroidism, who presents to the ED with nausea, vomiting, and profuse diarrhea that started 2 days ago. Meseret reports moderate watery stools without blood, she reports missing dialysis Sunday due to weakness. Meseret was previously admitted 04/22/2023 for acute respiratory failure with hypoxia and aopiicbtgf26/18/23. On examination, Meseret had increased WOB, unable to complete a sentence, and felt like she was strangled in the hospital gown. Lungs sound with rhonchi bilaterally. Initial vitals BP 115/42, heart rate 85, respirations 18, pulse ox 96% on room air, temperature 97.7. Significant labs troponin 69.8, BNP >175,000, CO2 11, BUN/creatinine 122/8.14. CXR "The lungs are well-expanded. There is very mild perihilar interstitial prominence which may reflect vascular congestion. The lateral costophrenic sulci are grossly clear. There is no evidence of pneumothorax" Meseret will be admitted to hospitalist service for further evaluation and treatment. Consulted Dr. Flores. Hospital Course: Meseret Gallego is a pleasant 68 year old female with a past medical history significant for ESRD (HD MWF), CAD status post CABG (7 weeks ago), HTN, DM2, acute on chronic CHF, diabetic neuropathy, hyperlipidemia, diabetic sores on the feet, and hypothyroidism who was admitted to the [facility] on 05/09/23 for Fluid volume overload. Meseret presented to the ED in severe distress, unable to breath or complete sentences. She had missed one week of dialysis. Dr. Flores was consulted and she was taken to emergency dialysis. She was altered during her admission until today (05/11). She tolerated three dialysis treatments and is now alert and oriented. During this admission she would complain of her right arm hurting and her right hand swelling. This required an xray and ultrasound. There was a clot found in her right jugluar vein above the dialysis port. Dr. Flores is aware. She is requesting discharge. On 05/11/23, Meseret was seen on morning rounds and afternoon re-evaluation s/p dialysis and deemed medically stable for discharge. Meseret was discharged with instructions to schedule follow-up appointments with PCP, Cardiac surgeon, and Dr. Flores. Meseret was provided prescriptions for Eliquis. The patient and family members were given the opportunity to ask questions and reported no further questions. Furthermore, all questions were answered to the best of my ability. A copy of this discharge summary will be sent to the above providers to facilitate continuity of care. Today, I personally spent 55 minutes with Meseret, of which greater than 50% of the time was spent in patient education, counseling, and coordination of care as described above. Physical Exam General: Alert, Oriented x3 HEENT: Atraumatic, Normocephalic, PERRLA Neck: Supple, 2+ carotid pulse no bruit, JVD not distended Respiratory: clear to auscultation Cardiovascular: No edema, Normal pulses, Regular rate/rhythm, Normal S1 S2 Capillary refill: <2 Seconds Gastrointestinal: Soft and benign, Hyperactive Musculoskeletal: Right arm with full ROM Integumentary: Skin breakdown (left calf, bilateral feet, right forearm), Erythema, Diabetic ulcer (bilateral feet) <SolomonCaitlin - Last Filed: 05/11/23 16:44> Admission Date: 05/09/23 Discharge Date: 05/12/23 Hospital Course: Patient seen and examined. Plan of care discussed with Ms. Carbajal. Mental status improved to baseline. Patient currently denies any complaint and request to go home Venous Doppler shows internal jugular vein thrombosis-patient will closely occl usive. Case discussed with nephrology Dr. Brennan. Start anticoagulation with Eliquis 2.5 mg twice a day. Noted patient has been on Brilinta for CAD. Case discussed with Dr. Lantigua who recommend a combination of Eliquis and Plavix. Replace Brilinta with Plavix. Follow-up with Nephrology for outpatient dialysis. <haydee smith - Last Filed: 05/12/23 14:49> Disposition: ROUTINE DISCHARGE Discharge Condition: FAIR Vital Signs/Physical Exam: Temp Pulse Resp BP Pulse Ox 98.0 F 56 16 143/85 H 91 05/11/23 14:26 05/11/23 14:26 05/11/23 14:26 05/11/23 14:26 05/11/23 14:26 Laboratory Data at Discharge: WBC 6.50 thou/uL (4.3-10.9) 05/11/23 06:46 Hgb 9.5 g/dL (12.0-15.0) L 05/11/23 06:46 Hct 28.9 % (36.0-45.0) L 05/11/23 06:46 Plt Count 96 thou/uL (152-406) L 05/11/23 06:46 PT 13.7 SECONDS (9.5-12.5) H 05/09/23 06:50 INR 1.25 05/09/23 06:50 Sodium 138 mEq/L (136-145) 05/11/23 06:46 Potassium 3.8 mEq/L (3.5-5.1) 05/11/23 06:46 BUN 70 mg/dL (7-18) H 05/11/23 06:46 Creatinine 5.97 mg/dL (0.55-1.02) H 05/11/23 06:46 Glucose 123 mg/dL (74-106) H 05/11/23 06:46 Phosphorus 8.4 mg/dL (2.5-4.9) H 05/11/23 06:46 Magnesium 2.0 mg/dL (1.6-2.4) 05/11/23 06:46 Total Bilirubin 0.9 mg/dL (0.2-1.0) 05/09/23 06:50 AST 28 U/L (15-37) 05/09/23 06:50 ALT 17 U/L (13-56) 05/09/23 06:50 Alkaline Phosphatase 73 U/L (45-117) 05/09/23 06:50 Triglycerides 123 mg/dL (<150) 05/10/23 14:35 Cholesterol 111 mg/dL (<200) 05/10/23 14:35 HDL Cholesterol 23 mg/dL (40-60) L 05/10/23 14:35 Cholesterol/HDL Ratio 4.83 05/10/23 14:35 <Caitlin Carbajal - Last Filed: 05/11/23 16:44> Vital Signs/Physical Exam: Temp Pulse Resp BP Pulse Ox 98.0 F 56 16 143/85 H 91 05/12/23 06:28 05/12/23 06:28 05/12/23 06:28 05/12/23 06:28 05/12/23 06:28 Laboratory Data at Discharge: WBC 5.80 thou/uL (4.3-10.9) 05/12/23 01:55 Hgb 9.0 g/dL (12.0-15.0) L 05/12/23 01:55 Hct 27.2 % (36.0-45.0) L 05/12/23 01:55 Plt Count 95 thou/uL (152-406) L 05/12/23 01:55 PT 13.7 SECONDS (9.5-12.5) H 05/09/23 06:50 INR 1.25 05/09/23 06:50 Sodium 138 mEq/L (136-145) 05/12/23 01:55 Potassium 3.6 mEq/L (3.5-5.1) 05/12/23 01:55 BUN 38 mg/dL (7-18) H 05/12/23 01:55 Creatinine 3.90 mg/dL (0.55-1.02) H 05/12/23 01:55 Glucose 93 mg/dL (74-106) 05/12/23 01:55 Phosphorus 5.1 mg/dL (2.5-4.9) H 05/12/23 01:55 Magnesium 1.6 mg/dL (1.6-2.4) 05/12/23 01:55 Total Bilirubin 0.9 mg/dL (0.2-1.0) 05/09/23 06:50 AST 28 U/L (15-37) 05/09/23 06:50 ALT 17 U/L (13-56) 05/09/23 06:50 Alkaline Phosphatase 73 U/L (45-117) 05/09/23 06:50 Triglycerides 123 mg/dL (<150) 05/10/23 14:35 Cholesterol 111 mg/dL (<200) 05/10/23 14:35 HDL Cholesterol 23 mg/dL (40-60) L 05/10/23 14:35 Cholesterol/HDL Ratio 4.83 05/10/23 14:35 <haydee smith - Last Filed: 05/12/23 14:49> Diet: Renal Activity: Fall precautions Time spent managing pt's care (in minutes): 55 <Caitlin Carbajal - Last Filed: 05/11/23 16:44> <haydee smith - Last Filed: 05/12/23 14:49> Home Medications: Metoprolol Succinate [Toprol Xl*] 12.5 mg PO BID 6AM 6PM tab 06/21/22 Cyclobenzaprine [Flexeril*] 10 mg PO TID PRN #30 tab 09/16/22 Collagenase [Santyl Ointment*] 1 appl TOP DAILY #1 tube 10/26/22 Amlodipine [Norvasc*] 10 mg PO DAILY 01/28/23 Amino Acids/Protein Hydrolys [Prosource No Carb Liquid Pkt] 30 ml PO BID #60 packet 02/02/23 Hydrocodone 10/APAP 325 [[place] 10/325*] 1 tab PO Q6H PRN #30 tab 02/02/23 Silver Sulfadiazine Crm [Silvadene*] 1 appl TOP BID #1 jar 02/02/23 Albuterol Neb [Proventil 0.083% Neb Soln] 2.5 mg NEB [id number] PRN #120 amp 04/25/23 Ipratropium Neb [Atrovent*] 0.5 mg NEB [id number] PRN #120 amp 04/25/23 Loratadine [Claritin*] 10 mg PO DAILY PRN #30 tab 04/25/23 Mupirocin Oint [Bactroban 2% Ointment*] 1 appl TOP BID #1 tube 04/25/23 Nystatin Cream [Mycostatin 100MU/Gm Cream*] 1 appl TOP BID #1 tube 04/25/23 Atorvastatin Calcium 1 tab PO BEDTIME 05/09/23 Bupropion HCl [Wellbutrin] 1 tab PO BID 05/09/23 Furosemide 80 mg PO DAILY 05/09/23 Insulin Lispro [Humalog] 50 unit SQ BID 05/09/23 Levothyroxine Sodium [Synthroid] 150 mcg PO DAILY 05/09/23 Pantoprazole Sodium [Protonix] 40 mg PO DAILY 05/09/23 Sucralfate [Carafate] 1 gm PO BID 05/09/23 Apixaban [Eliquis] 2.5 mg PO BID 30 Days #60 tablet 05/11/23 Clopidogrel Bisulfate [Plavix] 75 mg PO DAILY 30 Days #30 tab 05/11/23 New Medications: Apixaban [Eliquis] 2.5 mg PO BID 30 Days #60 tablet Clopidogrel Bisulfate [Plavix] 75 mg PO DAILY 30 Days #30 tab Physician Discharge Instructions: 1. Follow up with PCP in one week for adjustments to home medications 2. Follow up with cardiac surgeon for removal of eduardo from sternal incision 3. Follow up with Dr. Flores for continued dialysis AND to monitor Jugular blood clot above dialysis port 4. Continue with renal diet 5. Activity as tolerated, safely walk with support 6. Return to ED if symptoms return New medication Eliquis 2.5 mg twice a day for four weeks plavix 75 mg daily Stop taking brilinta and start taking plavix
[2023-05-11] MEDS: ATORVASTATIN 40 MG TAB PO SCH (21:26)
[2023-05-11 23:37] VITALS: O2SAT 96
[2023-05-12 02:20] LABS: Absolute Lymphocytes (CBC) 0.3 K/uL (0.7-4.9); Hematocrit 27.2 % (36.0-45.0); Lymphocytes % 4.7 % (15.3-44.8); MCV 89.5 fL (80-100); MPV 8.1 fL (7.6-11.3); RBC Red Blood Cell Count 3.03 M/uL (3.86-4.86)
[2023-05-12 02:23] LABS: Platelets 95 thou/uL (152-406)
[2023-05-12 02:32] LABS: Albumin 2.4 g/dL (3.4-5.0); Magnesium 1.6 mg/dL (1.6-2.4); Phosphorus 5.1 mg/dL (2.5-4.9); Potassium 3.6 mEq/L (3.5-5.1)
[2023-05-12] MEDS ORDERED: ALBUTEROL 2.5 MG/3 ML NEB SOL NEB PRN (05:03)
[2023-05-12] MEDS ORDERED: CYCLOBENZAPRINE 10 MG TAB PO PRN (05:03)
[2023-05-12] MEDS ORDERED: HYDRALAZINE HCL 20 MG/ML VIAL IV PRN (05:05)
[2023-05-12] MEDS ORDERED: METOPROLOL XL 25 MG TAB PO SCH (06:00)
[2023-05-12 06:23] VITALS: BP 143/85; TEMP 98
[2023-05-12] MEDS ORDERED: PANTOPRAZOLE 40MG TABLET PO SCH (07:30)
[2023-05-12] MEDS ORDERED: LEVOTHYROXINE SOD 0.075 MG TAB PO SCH (07:30)
[2023-05-12] MEDS ORDERED: AMINO ACIDS/PROTEIN HYDROLYS 30 ML LIQUID.PKT PO SCH (09:00)
[2023-05-12] MEDS ORDERED: AMLODIPINE 5 MG TAB PO SCH (09:00)
[2023-05-12] MEDS ORDERED: FUROSEMIDE 40 MG TABLET PO SCH (09:00)
[2023-05-12] MEDS ORDERED: HOME MED 1 EA UNK (Bupropion Hcl [Wellbutrin] 75 MG Tablet) PO SCH (09:00)
--- NOTE | 2023-05-12 15:22 | P.DS ---
Admission Date: 05/09/23 Discharge Date: 05/12/23 Disposition: ROUTINE DISCHARGE Discharge Condition: FAIR Reason for Admission: ESRD - Problems (1) Jugular vein occlusion, right Status: Acute (2) Chronic kidney disease, stage 4 (severe) Status: Acute Brief History of Present Illness: Meseret Gallego is a 68-year-old female with past medical history of ESRD (HD MWF), CAD status post CABG, HTN, DM2, acute on chronic CHF, diabetic neuropathy, hyperlipidemia, diabetic sores on the feet, and hypothyroidism, who presents to the ED with nausea, vomiting, and profuse diarrhea that started 2 days ago. Meseret reports moderate watery stools without blood, she reports missing dialysis Sunday due to weakness. Meseret was previously admitted 04/22/2023 for acute respiratory failure with hypoxia and [id number]/23. On examination, Meseret had increased WOB, unable to complete a sentence, and felt like she was strangled in the hospital gown. Lungs sound with rhonchi bilaterally. Initial vitals BP 115/42, heart rate 85, respirations 18, pulse ox 96% on room air, temperature 97.7. Significant labs troponin 69.8, BNP >175,000, CO2 11, BUN/creatinine 122/8.14. CXR "The lungs are well-expanded. There is very mild perihilar interstitial prominence which may reflect vascular congestion. The lateral costophrenic sulci are grossly clear. There is no evidence of pneumothorax" Meseret will be admitted to hospitalist service for further evaluation and treatment. Consulted Dr. Flores. Hospital Course: Meseret Gallego is a pleasant 68 year old female with a past medical history significant for ESRD (HD MWF), CAD status post CABG (7 weeks ago), HTN, DM2, acute on chronic CHF, diabetic neuropathy, hyperlipidemia, diabetic sores on the feet, and hypothyroidism who was admitted to the [facility] on 05/09/23 for Fluid volume overload. Meseret presented to the ED in severe distress, unable to breath or complete sentences. She had missed one week of dialysis. Dr. Flores was consulted and she was taken to emergency dialysis. She was altered during her admission until today (05/11). She tolerated three dialysis treatments and is now alert and oriented. During this admission she would complain of her right arm hurting and her right hand swelling. This required an xray and ultrasound. There was a clot found in her right jugluar vein above the dialysis port. Dr. Flores is aware. She is requesting discharge. On 05/11/23, Meseret was seen on morning rounds and afternoon re-evaluation s/p dialysis and deemed medically stable for discharge. Meseret was discharged with instructions to schedule follow-up appointments with PCP, Cardiac surgeon, and Dr. Flores. Meseret was provided prescriptions for Eliquis. The patient and family members were given the opportunity to ask questions and reported no further questions. Furthermore, all questions were answered to the best of my ability. A copy of this discharge summary will be sent to the above providers to facilitate continuity of care. Today, I personally spent 55 minutes with Meseret, of which greater than 50% of the time was spent in patient education, counseling, and coordination of care as described above. Physical Exam General: Alert, Oriented x3 HEENT: Atraumatic, Normocephalic, PERRLA Neck: Supple, 2+ carotid pulse no bruit, JVD not distended Respiratory: clear to auscultation Cardiovascular: No edema, Normal pulses, Regular rate/rhythm, Normal S1 S2 Capillary refill: <2 Seconds Gastrointestinal: Soft and benign, Hyperactive Musculoskeletal: Right arm with full ROM Integumentary: Skin breakdown (left calf, bilateral feet, right forearm), Erythema, Diabetic ulcer (bilateral feet) Vital Signs/Physical Exam: Temp Pulse Resp BP Pulse Ox 98.0 F 56 16 143/85 H 91 05/12/23 06:28 05/12/23 06:28 05/12/23 06:28 05/12/23 06:28 05/12/23 06:28 Laboratory Data at Discharge: WBC 5.80 thou/uL (4.3-10.9) 05/12/23 01:55 Hgb 9.0 g/dL (12.0-15.0) L 05/12/23 01:55 Hct 27.2 % (36.0-45.0) L 05/12/23 01:55 Plt Count 95 thou/uL (152-406) L 05/12/23 01:55 PT 13.7 SECONDS (9.5-12.5) H 05/09/23 06:50 INR 1.25 05/09/23 06:50 Sodium 138 mEq/L (136-145) 05/12/23 01:55 Potassium 3.6 mEq/L (3.5-5.1) 05/12/23 01:55 BUN 38 mg/dL (7-18) H 05/12/23 01:55 Creatinine 3.90 mg/dL (0.55-1.02) H 05/12/23 01:55 Glucose 93 mg/dL (74-106) 05/12/23 01:55 Phosphorus 5.1 mg/dL (2.5-4.9) H 05/12/23 01:55 Magnesium 1.6 mg/dL (1.6-2.4) 05/12/23 01:55 Total Bilirubin 0.9 mg/dL (0.2-1.0) 05/09/23 06:50 AST 28 U/L (15-37) 05/09/23 06:50 ALT 17 U/L (13-56) 05/09/23 06:50 Alkaline Phosphatase 73 U/L (45-117) 05/09/23 06:50 Triglycerides 123 mg/dL (<150) 05/10/23 14:35 Cholesterol 111 mg/dL (<200) 05/10/23 14:35 HDL Cholesterol 23 mg/dL (40-60) L 05/10/23 14:35 Cholesterol/HDL Ratio 4.83 05/10/23 14:35 Home Medications: Metoprolol Succinate [Toprol Xl*] 12.5 mg PO BID 6AM 6PM tab 06/21/22 Cyclobenzaprine [Flexeril*] 10 mg PO TID PRN #30 tab 09/16/22 Collagenase [Santyl Ointment*] 1 appl TOP DAILY #1 tube 10/26/22 Amlodipine [Norvasc*] 10 mg PO DAILY 01/28/23 Amino Acids/Protein Hydrolys [Prosource No Carb Liquid Pkt] 30 ml PO BID #60 packet 02/02/23 Hydrocodone 10/APAP 325 [[place] 10/325*] 1 tab PO Q6H PRN #30 tab 02/02/23 Silver Sulfadiazine Crm [Silvadene*] 1 appl TOP BID #1 jar 02/02/23 Albuterol Neb [Proventil 0.083% Neb Soln] 2.5 mg NEB [id number] PRN #120 amp 04/25/23 Ipratropium Neb [Atrovent*] 0.5 mg NEB [id number] PRN #120 amp 04/25/23 Loratadine [Claritin*] 10 mg PO DAILY PRN #30 tab 04/25/23 Mupirocin Oint [Bactroban 2% Ointment*] 1 appl TOP BID #1 tube 04/25/23 Nystatin Cream [Mycostatin 100MU/Gm Cream*] 1 appl TOP BID #1 tube 04/25/23 Atorvastatin Calcium 1 tab PO BEDTIME 05/09/23 Bupropion HCl [Wellbutrin] 1 tab PO BID 05/09/23 Furosemide 80 mg PO DAILY 05/09/23 Insulin Lispro [Humalog] 50 unit SQ BID 05/09/23 Levothyroxine Sodium [Synthroid] 150 mcg PO DAILY 05/09/23 Pantoprazole Sodium [Protonix] 40 mg PO DAILY 05/09/23 Sucralfate [Carafate] 1 gm PO BID 05/09/23 Apixaban [Eliquis] 2.5 mg PO BID 30 Days #60 tablet 05/11/23 Clopidogrel Bisulfate [Plavix] 75 mg PO DAILY 30 Days #30 tab 05/11/23 New Medications: Apixaban [Eliquis] 2.5 mg PO BID 30 Days #60 tablet Clopidogrel Bisulfate [Plavix] 75 mg PO DAILY 30 Days #30 tab Physician Discharge Instructions: 1. Follow up with PCP in one week for adjustments to home medications 2. Follow up with cardiac surgeon for removal of eduardo from sternal incision 3. Follow up with Dr. Flores for continued dialysis AND to monitor Jugular blood clot above dialysis port 4. Continue with renal diet 5. Activity as tolerated, safely walk with support 6. Return to ED if symptoms return New medication Eliquis 2.5 mg twice a day for four weeks plavix 75 mg daily Stop taking brilinta and start taking plavix Diet: Renal Activity: Fall precautions Time spent managing pt's care (in minutes): 55
--- NOTE | 2023-05-12 15:25 | P.PN ---
Subjective Date of Service: 05/12/23 Chief Complaint: ESRD Subjective: Doing well HPI 05/09: Meseret Gallego is a 68-year-old female with past medical history of ESRD (HD MWF), CAD status post CABG, HTN, DM2, acute on chronic CHF, diabetic neuropathy, hyperlipidemia, diabetic sores on the feet, and hypothyroidism, who presents to the ED with nausea, vomiting, and profuse diarrhea that started 2 days ago. Meseret reports moderate watery stools without blood, she reports missing dialysis Sunday due to weakness. Meseret was previously admitted 04/22/2023 for acute respiratory failure with hypoxia and [id number]/23. On examination, Meseret had increased WOB, unable to complete a sentence, and felt like she was strangled in the hospital gown. Lungs sound with rhonchi bilaterally. Initial vitals BP 115/42, heart rate 85, respirations 18, pulse ox 96% on room air, temperature 97.7. Significant labs troponin 69.8, BNP >175,000, CO2 11, BUN/creatinine 122/8.14. CXR "The lungs are well-expanded. There is very mild perihilar interstitial prominence which may reflect vascular congestion. The lateral costophrenic sulci are grossly clear. There is no evidence of pneumothorax" Meseret will be admitted to hospitalist service for further evaluation and treatment. Consulted Dr. Flores. 05/10: Meseret was taken for emergency dialysis at admission yesterday (05/09). Meseret is c/o right arm pain and has decreased ROM requiring her to pick her arm up with her left hand. Right arm xray ordered with US to right arm as well. She is very uncomfortable in bed. 05/11: Planned for discharge today with mental status intact, after three rounds of dialysis Meseret requested to discharge home. She is on RA, tolerating PO diet, sister to pick her up and take her home. She did realize she cannot take care of herself and will restart her HH to come by and visit tomorrow and would like to discharge in the morning once that was set up. Review of Systems 10-point ROS is otherwise unremarkable Physical Examination - Vital Signs Temperature: 98.0 F Blood Pressure: 143/85 Pulse: 56 Respirations: 16 Pulse Ox (%): 91 Assessment And Plan - Current Problems (Diagnosis) (1) Jugular vein occlusion, right Status: Acute (2) Chronic kidney disease, stage 4 (severe) Status: Acute - Plan Physical Exam General: Alert, Oriented x3, Severe distress HEENT: Atraumatic, Normocephalic, PERRLA Neck: Supple, 2+ carotid pulse no bruit, JVD not distended Respiratory: Rhonchi/gurgles Cardiovascular: No edema, Normal pulses, Regular rate/rhythm, Normal S1 S2, Other (hypotensive) Capillary refill: <2 Seconds Gastrointestinal: Soft and benign, Hyperactive Musculoskeletal: Right arm weakness, swelling to right hand Integumentary: Skin breakdown (left calf, bilateral feet, right forearm), Erythema, Diabetic ulcer (bilateral feet) Assessment and Plan ESRD Pulmonary Edema Fluid volume overload BUN/Creatinine 66/5.39, GFR 8 BNP >175,000 Dr. Flores managing Dialysis today NSTEMI Troponin 69.9, 74.1 EKG with nonspecific T wave abnormalities asa, statin, ECHO Right arm pain Decreased mobility, hand swelling xray: Heavy vascular calcifications are present with surgical clips at the level of the antecubital fossa. Mild radiocarpal degenerative changes are present. Small olecranon spur is evident. No acute fracture or dislocation seen US to right arm pending Hypotensive BP stable dialysis today, will follow up Metabolic acidosis Hyperphosphatemia CO2 21, resolved phos 7.4, improving dialysis today monitor labs in the AM Nausea/vomitting/perfuse diarrhea C diff pending Full code DVT pxx: heparin TID LOS 2-3 days Discharge Plan: Home Time Spent Managing PTS Care (In Minutes): 35
[2023-05-12] MEDS ORDERED: ATORVASTATIN 40 MG TAB PO SCH (21:00)
== END 2023-05-12 06:25 | disposition home or self-care (01) | DRG 280 ==
LOC: ER 06:06 → ERHOLD 09:26 → 2ND 23:03
PROVIDERS: ADMIT Internal Medicine; ATTEND Internal Medicine
PROC: 5A1D70Z Performance of Urinary Filtration, Intermittent, Less than 6 Hours Per Day (ICD-10-PCS; principal; 2023-05-10)
DX: I13.0 Hypertensive heart and chronic kidney disease with heart failure and stage 1 through stage 4 chronic kidney disease, or unspecified chronic kidney disease (principal); I21.4 Non-ST elevation (NSTEMI) myocardial infarction; G93.41 Metabolic encephalopathy; E87.20 Acidosis, unspecified; N25.81 Secondary hyperparathyroidism of renal origin; E87.1 Hypo-osmolality and hyponatremia; I82.C11 Acute embolism and thrombosis of right internal jugular vein; N18.4 Chronic kidney disease, stage 4 (severe); I50.9 Heart failure, unspecified; E11.22 Type 2 diabetes mellitus with diabetic chronic kidney disease; E11.40 Type 2 diabetes mellitus with diabetic neuropathy, unspecified; E11.51 Type 2 diabetes mellitus with diabetic peripheral angiopathy without gangrene; E11.621 Type 2 diabetes mellitus with foot ulcer; L97.521 Non-pressure chronic ulcer of other part of left foot limited to breakdown of skin; L97.511 Non-pressure chronic ulcer of other part of right foot limited to breakdown of skin; D63.1 Anemia in chronic kidney disease; M79.601 Pain in right arm; E87.6 Hypokalemia; E03.9 Hypothyroidism, unspecified; I95.9 Hypotension, unspecified; N25.0 Renal osteodystrophy; E83.39 Other disorders of phosphorus metabolism; D72.829 Elevated white blood cell count, unspecified; E78.00 Pure hypercholesterolemia, unspecified; I25.10 Atherosclerotic heart disease of native coronary artery without angina pectoris; F17.210 Nicotine dependence, cigarettes, uncomplicated; I25.2 Old myocardial infarction; Z99.2 Dependence on renal dialysis; Z88.8 Allergy status to other drugs, medicaments and biological substances; Z95.1 Presence of aortocoronary bypass graft; Z88.5 Allergy status to narcotic agent; Z95.5 Presence of coronary angioplasty implant and graft; Z79.4 Long term (current) use of insulin; Z79.84 Long term (current) use of oral hypoglycemic drugs; Z79.82 Long term (current) use of aspirin; Z11.52 Encounter for screening for COVID-19; Z90.49 Acquired absence of other specified parts of digestive tract; Z79.01 Long term (current) use of anticoagulants; Z79.02 Long term (current) use of antithrombotics/antiplatelets; Z96.653 Presence of artificial knee joint, bilateral; Z79.899 Other long term (current) drug therapy; Z89.429 Acquired absence of other toe(s), unspecified side; Z89.029 Acquired absence of unspecified finger(s); Z91.158 Patient's noncompliance with renal dialysis for other reason; Z79.890 Hormone replacement therapy; Z91.048 Other nonmedicinal substance allergy status; W01.0XXA Fall on same level from slipping, tripping and stumbling without subsequent striking against object, initial encounter; Y99.9 Unspecified external cause status; Y93.9 Activity, unspecified; Y92.019 Unspecified place in single-family (private) house as the place of occurrence of the external cause
CPT/HCPCS: 36415; 71045; 80048; 80061; 80069; 80076; 82947; 83735; 83880; 84100; 84132; 84484; 85025; 85379; 85610; 86706; 87040; 87340; 87635; 87804; 90935; 92610; 93005; 93931; 93971; 96374; 99285; J0360; J1644; J3010; J3475; P9047; Q0169

== ENCOUNTER 2023-05-12 11:36 | Inpatient (IN) | payer OTHER ==
--- OUTSIDE RECORDS SUMMARY | 2023-05-12 12:08 | XMS REPORT | Continuity of Care Document ---
:1955 Author Organization [facility] t Address [address] [place] [address] [place] [id number] Care Team Providers Name Role Phone DANN MORA Primary Care Physician Unavailable Dann Mora Attending Clinician Unavailable LANCE TRAVIS Attending Clinician Unavailable DRISS CAPPS Attending Clinician Unavailable JULIA GRADY Attending Clinician Unavailable DANIEL HAMILTON Attending Clinician Unavailable DINAH BURNS Attending Clinician Unavailable SHIRA ROBB Attending Clinician Unavailable BROOKLYN MACHADO Attending Clinician Unavailable REZA GEORGE Attending Clinician Unavailable SEUN DOYLE Attending Clinician Unavailable CAM MCLAIN Attending Clinician Unavailable [id number] Attending Clinician Unavailable Forest Schmid Attending Clinician Unavailable Joaquín Rubio Attending Clinician Unavailable Alexandra Arrieta Attending Clinician Unavailable FAUSTO MORAES Attending Clinician Unavailable [email or web address] Attending Clinician Unavailable ELÍAS MAYER Attending Clinician Unavailable ADAIR AKBAR Attending Clinician Unavailable MATTHEW RYAN Attending Clinician Unavailable MICHAELA HOLBROOK Attending Clinician Unavailable ANDREW MALCOLM Attending Clinician Unavailable RALPH SANTANA Attending Clinician Unavailable JEFRY STEWART Attending Clinician Unavailable KEITH RUBIO Attending Clinician Unavailable THOR LAI Attending Clinician Unavailable Trey RAYO, Ivan Guy Attending Clinician Unavailable Doctor Unassigned, Chewey Attending Clinician Unavailable BROOKLYN URBAN Attending Clinician Unavailable Sarahy Ruth Attending Clinician Liya BURROUGHS, Tavo Attending Clinician Fina BURROUGHS, Duke Attending Clinician Brooklyn Urban DO Attending Clinician Essence BURROUGHS, Leyla Attending Clinician Joseph RAYO, Daija Attending Clinician Unavailable Cori ARIAS, Katherin Angulo Attending Clinician Adonis Gaytan Attending Clinician Unavailable Eugenio BURROUGHS, Jose Keller Attending Clinician Benjie BURROUGHS, Reji Baldwin Attending Clinician Zenia ARIAS, Ce Attending Clinician CARSON IVERSON Attending Clinician Unavailable Yvan BURROUGHS, Jory Nguyen Attending Clinician [phone] Mao ARIAS, Corrina To Attending Clinician [phone] Funmi Allen MA Attending Clinician Unavailable [...] Clinician Unavailable BRAD ARRIAGA Admitting Clinician Unavailable [id number] Admitting Clinician Unavailable Forest Schmid Admitting Clinician [...] Date Expiration Date S ource [employer] MEDICARE [id number] 2021 ADV 00:00:00 HUMM HUMM [id number] [employer]/AARP [id number] 2020 MCARE ADV 00:00:00 CHOICE PPO MEDICARE PART A [id number] 2020 \\T\\ B 00:00:00 HU[employer] MEDICARE 53 [id number] 2021 Common Sp rachelle 00:00:00 [facility] Problems Condition Condition Condition Status Onset Resolution Last Treating Co mments Source Name Details Category Date Date Treatment Clinician Date Chronic Chronic Disease Active Univers combined combined 12 ity of systolic systolic 00:00: [place] and and 00 Medical diastolic diastolic Bran ch congestive congestive heart heart failure failure HFrEF HFrEF Disease Active Univers (heart (heart 12-15 ity of failure failure 00:00: [place] with with 00 Medical reduced reduced Branch ejection ejection fraction) fraction) Elevated Elevated Disease Active Unive rs troponin I troponin I 12-15 it y of level level 00:00: [place] 00 Medical Branch Elevated Elevated Disease Active Unive rs brain brain 12-15 ity of [place] [...] Added automatic ally from request for surgery [id number] ESRD (end ESRD (end Disease Active 2019-07 Met hodi stage stage 1-05 st renal renal 00:00: Hospita disease) disease) 00 l on on dialysis dialysis Carpal Carpal Problem Resolve 2021-08-25 Me moria tunnel tunnel d 22:23:46 l syndrome [...] (disorder) Active Problem 08/25/2021 [facility] Hyperlipid Problem Active 2021-08-25 M skylar sheridania Hyperlipid 22:23:46 l (disorder) stuart James n (disorder) Active Problem 08/25/2021 [facility] Paresthesi Paresthes Problem Active 2021-08-25 Memoria a ia 22:23:46 l (finding) (finding) Herm joss Active Problem 08/25/2021 [facility] Paresthesi Paresthes Problem Active 2021-08-25 Memoria a of hand ia of hand 22:23:46 l (finding) (finding) Herm joss Active Problem 08/25/2021 [facility] Tremor Tremor Problem Active 2021-08-25 Mem oria (finding) (finding) 22:23:46 l Active Lewis Problem 08/25/2021 [facility] [id number] Unsteady Problem Commo n gait Spirit - [facility] Arrhythmia Arrhythmia Problem C ommon Spirit - [facility] [id number] Retinopath Problem Com mon y Spirit - [facility] [id number] Seasonal Problem Comm on allergies Spirit - [facility] [id number] PUD Problem Common (peptic Spirit ulcer - CHI disease) [facility] [id number] Body mass Problem Com mon index Spirit [BMI] - CHI 38.0-38.9, [facility] [id number] Diabetic Problem Comm on polyneurop Spirit athy - CHI associated St with type [facility] 2 diabetes Medica l mellitus Center [id number] Morbid Problem Commo n 9104 (severe) Spirit obesity - CHI due to excess [facility] calories [facility] [id number] Type 2 Problem Common diabetes Spirit mellitus - [facility] with diabetic [facility] chronic Medical kidney Center disease Secondary Secondary Problem Com mon hyperparat hyperparat Sp rachelle hyroidism hyroidism, - C HI not St elsewhere [facility] classified Medica l Center Athscl Athscl Problem Common [place] Spirit arteries arteries - CHI of of [...] rit heart CHF - CHI failure (congestiv [facility] heart [facility] failure) [facility] [id number] Stented Problem Commo n coronary [facility] artery - [facility] [id number] PAD Problem Common (periphera [facility] l artery - CHI disease) [facility] [id number] Coronary Problem Commo n artery Spirit disease - [facility] involving [facility] coronary [facility] artery of [place] heart, unspecifie d whether angina present [id number] Oxygen Problem Commo n 07 dependent [facility] [id number] Anemia in Problem Com mon chronic [facility] illness [facility] Allergic Non-season Problem Com mon rhinitis al [facility] allergic - [facility], [facility] , unspecifie d trigger Dependence Dialysis Problem Com mon on renal patient [facility] dialysis [facility] Anxiety Anxiety Problem Common about about [facility] health health [facility] [id number] End stage Problem Comm on renal [facility] disease [facility] Hypothyroi Hypothyroi Problem C ommon dism dism [facility] Indwelling Indwelling Problem C roxana Lemons Lemons [facility] catheter catheter - [facility] present present [facility] Recurrent Risk for Problem Comm on falls falls [facility] [id number] Pressure Problem Com mon 5106 ulcer of Spirit right - [facility] heel[facility] Cholelithi Gall Problem Commo n asis bladder Spirit without stones [facility] obstructio [facility] Hypertensi Hypertensi Problem C ommon on on [facility] Type II Uncontroll Problem Comm on diabetes ed type 2 Spiri t mellitus diabetes - [facility] without mellitus complica with [facility] on insulin Medical therapy Center Mixed Mixed Problem Common hyperlipid hyperlipid Sp rachelle emia emia [facility] Gastroesop GERD Problem Commo n hageal (gastroeso Spirit reflux phageal - CHI disease reflux St disease) [facility] Vitamin D Vitamin D Problem Com mon deficiency deficiency Sp rachelle - [facility] Allergies, Adverse Reactions, Alerts Allergy Allergy Status Severity Reaction(s) Onset Inactive Treating Comm ents Source Name Type Date Date Clinician CODEINE Allergy Active High [facility] 00 [place] PROMETHA Allergy Active High [facility] ZINE [facility] 00 [place] ADHESIVE Allergy Active [facility] TAPE [facility]28 [facility] Medical 00 [place] OXYCODON DRUG Active Hallucinates Un hellen E INGREDI 11-04 ity of 00:00: [place] 00 Medical Branch PHENERGA DRUG Active Other-Cmnt Univ ers N PLAIN 11-04 ity of 00:00: Medical Branch ADHESIVE Drug Active Rash Univers Class 11-04 ity of 00:00: Medical Branch Adhesive Propensi [...] 2000-07 [facility] 08-06 Clear [facility]:00: [facility] CODEINE DA Active U HALLUCINATIO 2000-07 [facility] N 08-06 Clear 00:00: Hernandez 00 [facility] No Known DA Active U 2000-07 [facility] Contrast 08-06 Clear Allergie 00:00: Hernandez s 00 [facility] No Known DA Active U 2000-07 [facility] Food 08-06 Clear Allergie 00:00: Hernandez s 00 [facility] No Known DA Active U 2000-07 [facility] Other 08-06 Clear Allergie 00:00: Hernandez s 00 [facility] Opioids Propensi Active Rash Hallucina Meth deonte - ty to 6-17 tions ( st Morphine adverse 00:00: [facility] Analogue reaction 00 craw over l s s to body).Oth drug er reaction( s): Anaphylax ishalluci nations NO KNOWN Drug Active Univers ALLERGIE Class ity of S [facility] codeine codeine Active Memoria l Lewis Phenerga Phenerga Active Memori a n n l Elwis Tape Tape Active Memoria l [place] prometha prometha Active Unknown Commo n zine ne Spirit - [facility] codeine codeine Active Unknown Common Spirit - [facility] Family History Family Member Diagnosis Comments Start Date Stop Date Source Natural mother Hyperlipidemia [facility] Natural mother Hypertension [facility] Natural mother Kidney disease [facility] Natural mother Diabetes [facility] Natural father Heart disease [facility] Natural father Hypertension [facility] Natural father Thrombophlebitis Meth [facility] Social History Social Habit Start Date Stop Date Quantity Comments Source History of Tobacco Common Spirit - Use [facility] Gender identity [facility] History SDOH University o f Alcohol Std Drinks [place] [facility] History SDOH University o f Alcohol Binge [place] Medic al Branch History SDOH Social Unive rsity of [facility] Med ical Together Branch History SDOH Social Unive rsity of [facility] Medical Branch History SDOH Social Unive rsity of [facility] Medical Membership Branch History SDOH Social Unive rsity of [facility] Medical Meetings Branch Sexual orientation [facility] History SDOH 2022-12-15 2022-12-15 1 University o f Alcohol Frequency 00:00:00 00:00:00 [place] M edical Branch History SDOH Social 2022-12-15 2022-12-15 5 Unive rsity of Connections Phone 00:00:00 00:00:00 [place] M edical Branch History SDTN Social 2022-12-15 2022-12-15 5 Unive rsity of Connections Living 00:00:00 00:00:00 [place] [facility] History SDOH 2022-12-15 2022-12-15 0 University o f Physical Activity 00:00:00 00:00:00 [place] M edical DPW Branch History SDTN 2022-12-15 2022-12-15 0 University o f Physical Activity 00:00:00 00:00:00 [place] M [place]ical MPS Branch History SDTN 2022-12-15 2022-12-15 5 University o f Financial 00:00:00 00:00:00 [place] [facility] History SDTN Food 2022-12-15 2022-12-15 1 Univers ity of Worry 00:00:00 00:00:00 [place] [facility] History SDTN Food 2022-12-15 2022-12-15 1 Univers ity of Scarcity 00:00:00 00:00:00 [place] [facility] History SDOH 2022-12-15 2022-12-15 2 University o f Transport Med 00:00:00 00:00:00 [place] Medic al Branch History SDTN 2022-12-15 2022-12-15 2 University o f Transport Non-Med 00:00:00 00:00:00 [place] M edical Branch History SDTN 2022-12-15 2022-12-15 2 University o f Housing Unable to 00:00:00 00:00:00 [place] M edical Pay Branch History SDTN 2022-12-15 2022-12-15 1 University o f Housing Places 00:00:00 00:00:00 [place] Medi jose Lived Branch History SDTN 2022-12-15 2022-12-15 2 University o f Housing Homeless 00:00:00 00:00:00 [place] Me dical Last Year Branch Exposure to 2022-10-25 2022-11-04 Not sure University of SARS-CoV-2 (event) 00:00:00 13:19:00 [place] [facility] Alcohol intake 2022-04-27 2022-04-27 Current drinker [facility] dist 00:00:00 00:00:00 of alcohol Hospital (finding) History of Social 2022-04-27 2022-04-[address] function 00:00:00 00:00:00 Hospital Cigarettes smoked 2022-04-26 2022-04-[address] current (pack per 00:00:00 00:00:00 Hospita l day) - Reported Cigarette 2022-04-26 2022-04-26 [facility] pack-years 00:00:00 00:00:00 Hospital Tobacco use and 2022-04-26 2022-04-26 Smokeless [facility] exposure 00:00:00 00:00:00 tobacco non-user [facility] Social History 2021-02-23 2021-02-23 [facility] [place] [facility] 20:24:04 20:24:04 Alcohol Comment 2020-03-23 2020-03-23 RARELY [facility] 00:00:00 00:00:00 [facility] Sex [birth year] At [birth year] [facility] 00:00:00 00:00:00 [facility] Smoking Status Start Date Stop Date Source Unknown if ever smoked [facility] Never Smoker Common [facility] - [facility] Ce nter Former Smoker 2023-01-10 00:00:00 2023-01-10 00:00:00 Common S pirit - [facility] Medications Ordered Filled Start Stop Current [...] Nystatin Nystatin 2022-07 No 1{appli BID Nystatin [id number] 0-19 cation} [id number] UNIT/GM UNIT/GM 00:00: UNIT/GM 00 Cyclobenzap Cyclobenzap [...] 00:00: 00 honey 80 % 2022- No [id number] 5mL Apply 5 mL Univers 12-23 to area(s) ity of 00:00: 04:59 every 48 [place] 00 :00 ([facility]) hours Branch for 10 days. honey 80 % 2022- No [id number] 5mL Apply 5 mL Univers 12-23 to area(s) ity of 00:00: 04:59 every 48 [place] 00 :00 ([facility]) hours Branch for 10 days. vancomycin 2022- No 15mg/kg 1,250 mg Univers 1,250 mg in 12-22 (rounded ity of NaCl 0.9% 19:00: 06:59 from [place] (NS) 250 mL 00 :00 1,177.5 mg [...] ity of NaCl 0.9% 19:00: 06:59 from [place] (NS) 250 mL 00 :00 1,177.5 mg Me dical VIAL-MATE = 15 mg/kg Bran ch IV ?78.5 kg), piggyback IV Piggyback, ONCE, 1 dose, On Sun12/22/22 at 1400, Administer over 90 Minutes, 250 mL
Reas on for Anti-Infec tive: Documented Infection& lt;br>Docu mented Infection Site: Blood
D uration of Therapy: 7 days insulin 2022-0 Yes 30U inject 30 Unive rs lispro 100 6-16 Units ity of unit/mL 17:37: under the [place] inph 07 skin in Medical the [place] morning and 30 Units at noon and 30 Units in the evening. Sliding scale Insulin 2022-0 Yes 45U inject 45 Unive rs Glargine 6-16 Units ity of (LANTUS 17:37: under the [place] SOLOSTAR [address] [facility] U-100 the [place] INSULIN) morning 100 unit/mL and 45 (3 mL) Units in injection the evening. buPROPion Yes 150mg Take 1 Unive rs SR 150 mg 6-16 tablet by ity o f SR tablet 17:37: mouth in [facility] 07 the Medical morning. Branch pantoprazol Yes 40mg Take 1 Univ ers e 40 mg EC 6-16 tablet by ity of tablet 17:37: mouth in [place] [address] the Medical morning. Branch Levothyroxi Yes 150ug Take 150 U nivers ne 100 mcg 6-16 mcg by ity of capsule 17:37: mouth [place] [address] daily. Medical Branch aspirin 81 2022-0 Yes 81mg Take 81 mg U nivers mg Cap 6-16 by mouth ity of 17:37: in the [place] morning. Medical Branch Cholecalcif 2022-0 Yes Take by Uni vers daryl, 6-16 mouth. ity of Vitamin D3, 17:37: [place] 25 [facility] 07 Medical (1,000 Branch unit) capsule folic Yes Take by Univers acid/multiv 6-16 mouth ity of it-min/lute 17:37: [place] in (CENTRUM 07 Medical SILVER Branch ORAL) vitamin 0 Yes 100ug Take 1 Univers B-12 100 6-16 tablet by ity of mcg tablet 17:37: mouth [place] 07 every Medical morning. Branch loratadine Yes Univers 10 mg 6-16 ity of tablet 17:37: [place] Medical [facility] fenofibrate 0 Yes 200mg Take 1 Uni vers micronized 6-16 capsule by ity of 200 mg 17:37: mouth. [place] capsule Medical Branch polyethylen Yes 17g Take 1 Univ ers e glycol 6-16 Packet by ity of 3350 17 17:37: mouth. [place] gram powder [address] [place] [address] Branch insulin Yes 30U inject 30 Unive rs lispro 100 6-16 Units ity of unit/mL 17:37: under the [place] inph 07 skin in Medical the Branch morning and 30 Units at noon and 30 Units in the evening. Sliding scale Insulin Yes 45U inject 45 Unive rs Glargine 6-16 Units ity of (LANTUS 17:37: under the [place] SOLOSTAR [address] [facility] U-100 the Branch INSULIN) morning 100 [...] in [place] the Medical morning. Branch Levothyroxi Yes 150ug [...] 07 Medical (1,000 Branch unit) capsule folic 2023-0 Yes Take by Univers acid/multiv 6-16 mouth ity of it-min/lute 17:37: [place]. [place] in (CENTRUM 07 Medical SILVER Branch ORAL) vitamin 0 Yes 100ug Take 1 Univers B-12 100 6-16 tablet by ity of mcg tablet 17:37: mouth 07 every Medical morning. Branch loratadine 0 Yes Univers 10 mg 6-16 ity of tablet 17:37: [place] Medical Branch fenofibrate 0 Yes 200mg Take 1 Uni vers micronized 6-16 capsule by ity of 200 mg 17:37: mouth. [place] capsule [address] [place] [address] Branch polyethylen Yes 17g Take 1 Univ ers e glycol 6-16 Packet by ity of 3350 17 17:37: mouth. [place] gram powder [address] [place] [address] Branch insulin Yes 30U inject 30 Unive rs lispro 100 6-16 Units ity of unit/mL 17:37: under the [place] inph 07 skin in Medical the Branch morning and 30 Units at noon and 30 Units in the evening. Sliding scale Insulin Yes 45U inject 45 Unive rs Glargine 6-16 Units ity of (LANTUS 17:37: under the [place] SOLOSTAR [address] [facility] U-100 the [place] INSULIN) morning 100 unit/mL and 45 (3 mL) Units in injection the evening. buPROPion Yes 150mg Take 1 Unive rs SR 150 mg 6-16 tablet by ity o f SR tablet 17:37: mouth in [facility] s 07 the Medical morning. Branch pantoprazol Yes 40mg Take 1 Univ ers e 40 mg EC 6-16 tablet by ity of tablet 17:37: mouth in the Medical morning. Branch Levothyroxi Yes 150ug [...] mouth ity of it-min/lute 17:37: daily. [place] in (CENTRUM 07 Medical SILVER Branch ORAL) vitamin Yes 100ug Take 1 Univers B-12 100 6-16 tablet by ity of mcg tablet 17:37: mouth [place] [address] every Medical morning. Branch loratadine Yes Univers 10 mg 6-16 ity of tablet 17:37: [place] [facility] fenofibrate Yes 200mg Take 1 Uni vers micronized 6-16 capsule by ity of 200 mg 17:37: mouth. [place] capsule Medical Branch polyethylen Yes 17g Take 1 Univ ers e glycol 6-16 Packet by ity of 3350 17 17:37: mouth. [place] gram powder Medical Branch amLODIPine 2022- No 10mg Take 1 Univ ers 10 mg -16 -16 tablet by ity of tablet 16:45: 00:00 mouth in [place] 05 :00 the Medical morning. Branch furosemide 2022- No 160mg Take 2 Uni vers 80 mg -22 12-16 tablets by ity of tablet 16:45: 00:00 mouth in [place] 05 :00 the Medical morning. Branch lisinopriL 2022- No 5mg Take 1 Univ ers 5 mg tablet -16 tablet by it y of 16:45: 00:00 mouth in [place] 05 :00 the Medical morning. Branch metoprolol 2022- No 50mg Take 1 Univ ers succinate -16 -16 tablet by ity of XL 50 [...] 75mg Take 1 Uni vers (PLAVIX) 75 -22 12-16 tablet by it y of mg tablet 16:45: 00:00 mouth in [place] 05 :00 the Medical morning. Branch ticagrelor 2023-0 Yes 90mg 90 mg, Unive rs (BRILINTA) 6-16 Oral, BID, ity of tablet 90 13:00: [place] dose [place] mg [address] [facility] 12/22/22 at Branch 0800, Until Discontinu ed, Routine ticagrelor 2022-0 Yes 90mg 90 mg, Unive rs (BRILINTA) 6-16 Oral, BID, ity of tablet 90 13:00: [place] dose [place] mg [address] [facility] 12/22/22 at Branch 0800, Until Discontinu ed, Routine ticagrelor 2022-0 2022- No [id number] 90mg Take 1 Univers 90 mg 12-22-17 tablet by ity of tablet 00:00: 04:59 mouth in [place] 00 :00 [facility] and 1 tablet in the evening. Do all this for 30 days. amLODIPine 2022-0 2022- No [id number] 5mg Take 1 Univers 5 mg tablet 12-22 tablet by it y of 00:00: 04:59 mouth in [place] 00 :00 [facility] for 30 days. ticagrelor 2022-0 2022- No [id number] 90mg Take 1 Univers 90 mg 12-22-17 tablet by ity of tablet 00:00: 04:59 mouth in [place] 00 :00 [facility] and 1 tablet in the evening. Do all this for 30 days. amLODIPine 2022-0 2022- No [id number] 5mg Take 1 Univers 5 mg tablet 12-22 tablet by it y of 00:00: 04:59 mouth in [place] 00 :00 [facility] for 30 days. FENTanyl PF [...] Routine, Pain (scale 4-6), PACU FENTanyl PF Yes 25ug 25 mcg, [...] Starting ity of (HEPARIN 21:22: 21:52 on [facility] LOCKFLUSH(P 00 :17 12/21/22 at Pa dical ORCINE)(PF) 1622, Branch ) 100 Until [place] unit/mL 12/21/22 at injection 1652, Routine, Intra-op bupivacaine 2022- No PRN, Unive rs (preserv 12-21 Starting ity of free) 21:18: 21:52 on [facility] (SENSORCAIN 00 :17 12/21/22 at Pa dical E MPF) 0.25 1618, Branch % (2.5 Until [place] mg/mL) 12/21/22 at injection 1652, Routine, Intra-op NaCl 0.9% 2022- No PRN, Univers (NS) 12-21 Starting ity of injection 21:17: 21:52 on [facility] 00 :17 12/21/22 at Medical 1617, Branch Until Sun12/21/22 at 1652, Routine, Intra-op heparin Yes 2000U PRN - SEE [facility] ers 1,000 6-15 INSTRUCTIO ity of unit/mL 16:04: NS, [place] injection 44 Starting Medica l 2,000 Units on [place] 12/21/22 at 1104, Until Discontinu ed, Routine
For Priming of Ports:&nbs p; &n bsp; After initial saline flush, prime each port with heparin according to the priming volume listed on each catheter port for catheter lock.
heparin Yes 2000U PRN - SEE [facility] ers 1,000 -15 INSTRUCTIO ity of unit/mL 16:04: NS, [place] injection 44 Starting Medica l 2,000 Units on [place] 12/21/22 at 1104, Until Discontinu ed, Routine
For Priming of Ports:&nbs p; &n bsp; After initial saline flush, prime each port with heparin according to the priming volume listed on each catheter port for catheter lock.
honey 0 2022- No Topical, Univers ([facility] 12-21 Q48H, 7 ity o f (HONEY)) 80 15:00: 14:59 doses, [place] as % topical 00 :00 First dose Medi jose gel (after Branch last modificati on) on Krystle 12/21/22 at 1000, Last dose on Sun01/02/23 at 1000, Routine honey 2022- No Topical, Univers ([facility] 12-21 Q48H, 7 ity o f (HONEY)) 80 15:00: 14:59 doses, [place] as % topical 00 :00 First dose Medi jose gel (after Branch last modificati on) on [place] 12/21/22 at 1000, Last dose on Sun01/02/23 at 1000, Routine dicyclomine Yes 20mg 20 mg, Univ ers (BENTYL) 12-21 Oral, ity of tablet 20 05:09: QIDPRN, [place] mg 02 Starting Medical on [facility] 12/21/22 at 0009, Until Discontinu ed, Routine, Abdominal pain dicyclomine 2022-0 Yes 20mg 20 mg, [facility] (BENTYL) 615 Oral, ity of tablet 20 05:09: QIDPRN, [place] mg 02 Starting Medical on [facility] Branch 12/21/22 at 0009, Until Discontinu ed, Routine, Abdominal pain heparin 2022-0 Yes 2000U PRN - SEE [facility] ers 1,000 12-19 INSTRUCTIO ity of unit/mL [...]
heparin 2022-0 Yes 2000U PRN - SEE [facility] ers 1,000 12-19 INSTRUCTIO ity of unit/mL [...] lock.
diphenhydrA 2022-0 Yes 25mg 25 mg, [facility] MINE 12-19 Oral, ity of (BENADRYL) 09:29: Q4HPRN, [place] tablet 25 48 Starting Medica l mg on [facility] 12/19/22 at 0429, Until Discontinu ed, Routine, Itching diphenhydrA 2022-0 Yes 25mg 25 mg, [facility] MINE 12-19 Oral, ity of (BENADRYL) 09:29: Q4HPRN, [place] tablet 25 48 Starting Medica l mg on [facility] 12/19/22 at 0429, Until Discontinu ed, Routine, Itching heparin 2022-0 2023- No [id number] 2800U ONCE, 1 Univers 1,000 12-1812 dose, On ity of unit/mL 17:15: 18:47 Mon [place] injection 00 :00 12/18/22 at Medi jose [...]
D uration of Therapy: 14 days epoetin 2022-0 Yes 8000U 8,000 Univers vanesa-epbx 6-10 Units, ity of (RETACRIT) 11:45: [place]cut[place]o [place] injection 00 us, Medical 8,000 Units QMON/WED/F Br anch [place] AT 1999, First dose on 12/16/22 at 0745, Until Discontinu ed, Routine
hourly team members approving Restricted medication : AQUILINO MORALES epoetin 2022-0 Yes 8000U 8,000 Univers vanesa-epbx 6-10 Units, ity of (RETACRIT) 11:45: [place]cut[place] injection 00 us, Medical 8,000 Units QMON/WED/F Br anch [place] AT 1999, First dose on 12/16/22 at 0745, Until Discontinu ed, Routine
hourly team members approving Restricted medication : AQUILINO MORALES levothyroxi [...] (NS) 250 mL 00 :00 dose, On [facility] VIAL-MATE Sun12/15/22 Bran at 2200, Administer over 60 Minutes, 250 [...] ECG monitoring is advisable.
heparin 2022- No [id number] 4300U DIALYSIS Univers 1,000 12-15 06-10 ONCE - PT ity of unit/mL 22:45: 00:22 ROOM, 1 [place] injection 00 :00 dose, On Medica l 4,300 Units Sun12/15/22 Br anch at 1745, Routine
HD Catheter ports pack: A = 2.3 ml; V = 2.3 ml
mupirocin 2022- No Nasal, Unive rs (BACTROBAN 12-15- Q12H, 10 ity of NASAL OINT) 16:30: [...] 0 Yes 1000U 1,000 Univ ers daryl - Units, ity of (vitamin 14:00: Oral, [place] D3) tablet 00 DAILY, Medical 1,000 Units [...] 14:00: DAILY, 00 First dose Medical on Sun12/15/22 at 0900, Until Discontinu ed polyethylen 2022-0 Yes 17g 17 g, Unive rs e glycol 12-15 Oral, ity of 3350 powder 14:00: DAILY, [place] 17 g 00 First dose Medical on Sun [place] 12/15/22 at 0900, Until Discontinu ed, Routine [...] DAILY, 00 First dose Medical on Sun [place] 12/15/22 at 0900, Until Discontinu ed docusate 2022-0 Yes 100mg 100 mg, Unive rs (COLACE) 12-15 Oral, BID, ity o f capsule 100 13:00: First dose [place] mg 00 on Sun Medical 12/15/22 at Branch 0800, Until Discontinu ed, Routine docusate 2022-0 Yes 100mg 100 mg, Unive rs (COLACE) - Oral, BID, ity o f capsule 100 13:00: First dose [place] mg [address] [facility] 12/15/22 at [place] 0800, Until Discontinu ed, Routine vancomycin 0 [...] uration of Therapy: Other (see Comments) heparin 2022-0 Yes 5000U 5,000 Univers (porcine) 6- Units, ity of injection 11:00: [place]cut[place]o [place] 5,000 Units 00 us, Q8H, [facility] First dose Branch on [facility] [place] [facility] 12/15/22 at 0600, Until Discontinu ed, Routine heparin 2022-0 Yes 5000U 5,000 Univers (porcine) - Units, ity of injection 11:00: [place]cut[place]o [place] 5,000 Units 00 us, Q8H, [facility] First dose Branch on [facility] [place] [facility] 12/15/22 at 0600, Until Discontinu ed, Routine insulin 2022-0 Yes 30U inject 30 Unive rs lispro 100 6-09 Units ity of unit/mL 07:43: under the [place] in 43 skin in [facility] morning and 30 Units at noon and 30 Units in the evening. Sliding scale Insulin 2022-0 Yes 45U inject 45 Unive rs Glargine 6-09 Units ity of (LANTUS 07:43: under the [place] SOLOSTAR [address] [facility] U-100 [facility] INSULIN) morning 100 unit/mL and 45 (3 mL) Units in injection the evening. amLODIPine 2022-0 Yes 10mg Take 1 Unive rs 10 mg 6-09 tablet by ity of tablet 07:43: mouth in [place] [address] the Medical morning. Branch buPROPion 2022-0 Yes 150mg Take 1 Unive rs SR 150 mg 6-09 tablet by ity o f SR tablet 07:43: mouth in [facility] 43 the Medical morning. Branch furosemide 2022-0 Yes 160mg Take 2 Univ ers 80 mg 6-09 tablets by ity of tablet 07:43: mouth in [place] [address] the Medical morning. Branch lisinopriL 2022-0 Yes 5mg Take 1 Unive rs 5 mg tablet 6-09 tablet by ity of 07:43: mouth in [place] [address] the Medical morning. Branch metoprolol 2022-0 Yes 50mg Take 1 Unive rs succinate 6-09 tablet by ity o f XL 50 mg 24 07:43: mouth in [place] tablet 43 the Medical morning Branch and 1 tablet in the evening. pantoprazol 2022-0 Yes 40mg Take 1 Univ ers e 40 mg EC 6-09 tablet by ity of tablet 07:43: mouth in [place] [address] the Medical morning. Branch Levothyroxi 2022-0 Yes 150ug Take 150 U nivers ne 100 mcg 6-09 mcg by ity of capsule 07:43: mouth [place] [address] daily. Medical Branch aspirin 81 2022-0 Yes 81mg Take 81 mg U nivers mg Cap 6-09 by mouth ity of 07:43: in the [place] [address] morning. Medical Branch Cholecalcif 0 Yes Take by Uni vers daryl, 6-09 mouth. ity of Vitamin D3, 07:43: [place] 25 [facility] Medical (1,000 Branch unit) capsule folic 2022-0 Yes Take by Univers acid/multiv 6-09 mouth ity of it-min/lute 07:43: [facility]. [facility] (C[facility] 43 Medical SILVER Branch ORAL) vitamin 2022-0 Yes 100ug Take 1 Univers B-12 100 6-09 tablet by ity of mcg tablet 07:43: mouth [place] [address] every Medical morning. Branch loratadine 2022-0 Yes Univers 10 mg 6-09 ity of tablet 07:43: [place] [address] Medical Branch multivitami 2022-0 Yes Take by Uni vers n (MULTIPLE 6-09 mouth. ity of VITAMIN 07:43: [place] ESSENTIAL 43 Medical ORAL) Branch fenofibrate 2022-0 Yes 200mg Take 1 Uni vers micronized 12-15 capsule by ity of 200 mg 07:43: mouth. [place] capsule [address] [facility] Branch polyethylen Yes 17g Take 1 [facility] ers e glycol 12-15 Packet by ity of 3350 17 07:43: mouth. [place] gram powder 43 [facility] Branch clopidogreL 0 Yes 75mg Take 1 Univ ers (PLAVIX) 75 12-15 tablet by ity of mg tablet 07:43: mouth in [facility] 43 the morning. Branch NORepinephr 2022- No .05ug/k 0.05-0.5 Univers ine 4 mg in 12-15 06-10 g/min mcg/kg/min ity of 0.9% NaCl 07:34: 07:33 ?77 kg [place] 250 mL 23 :23 (14.4375-1 Medical infusion 44.375 [place] RTU mL/hr, rounded to 14.44-144. 38 mL/hr), [...] dose, On Sun12/14/22 at 2345, STAT pantoprazol 2022-0 2022- No 40mg 40 mg, Uni vers e 12-15 Slow IV ity of (PROTONIX) 04:00: 03:04 Push, [place] injection 00 :00 Q24H, 3 Medical 40 mg doses, Branch First dose on Sun12/14/22 at 2300, Last dose on Sun12/16/22 at 2300 potassium 2022-0 2022- No 10meq 10 mEq, IV Univers chloride in 12-15 Piggyback, i ty of water 10 04:00: 11:36 Q1H, 3 [place] mEq/100 mL 00 :00 doses, Medical RTU 10 mEq First dose Bra nch on Sun12/14/22 at 2300, Last dose on Sun12/15/22 at 0100, Administer over 60 Minutes, 100 mL glucagon 0 Yes 1mg 1 mg, Univers (GLUCAGEN 12-15 Intramuscu ity of DIAGNOSTIC 03:59: lar, PRN, [place] KIT) 49 Starting Medical injection 1 on [facility] 12/14/22 at 2259, Until Discontinu ed, VIOLETTA, [...] ENEMA) 00 :00 dose, On Medical (COMPOUNDED [facility] 12/14/22 Br anch ) Enem 225 at 2115, mL Routine glycerin 0 Yes 1{suppo 1 Univer s (adult) 12-15 sitory} Suppositor ity of (FLEET 01:30: y, Rectal, [place] GLYCERIN 00 DAILY, Medical (ADULT)) First dose Branc h suppository on [facility] 12/14/22 at Suppository 2030, Until Discontinu ed, Routine glycerin 0 Yes 1{suppo 1 Univer s (adult) 12-15 sitory} Suppositor ity of (FLEET 01:30: y, Rectal, [place] GLYCERIN 00 DAILY, Medical (ADULT)) First dose Branc h suppository on [facility] 12/14/22 at Suppository 2030, Until Discontinu ed, Routine acetaminoph 2022- No 500mg 500 mg, U nivers en 12-15 Oral, ity of (TYLENOL) 01:00: 00:03 ONCE, 1 [place] tablet 500 00 :00 dose, On Medic al mg [facility] 12/14/22 Branch at 2000, Routine ketorolac 2022- No 15mg 15 mg, Unive rs (TORADOL) 12-15 Slow IV ity of injection 00:45: 00:32 Push, [place] 15 mg 00 :00 ONCE, 1 Medical dose, On Branch [facility] 12/14/22 at 1945, Routine ceFEPIme 2022- No 1g 1 g, IV Unive rs (MAXIPIME) 12-15 Piggyback, it y of 1 g in NaCl 00:15: 00:02 ONCE, 1 [place] 0.9% (NS) 00 :00 dose, On Medica l 50 mL [facility] 12/14/22 [place] MINI-BAG at 1915, Administer over 30 Minutes, 50 mL
Reas on for Anti-Infec tive: Documented Infection< br>Documen matthew Infection Site: Skin / Soft Tissue< br>Duratio n of Therapy: 7 days ondansetron 2022-0 2022- No 4mg 4 mg, Slow Univers (ZOFRAN 12-14- IV Push, ity of (PF)) 23:15: 23:32 ONCE, 1 [place] injection 4 00 :00 dose, On Medi jose mg [place] 12/14/22 Branch at 1815, VIOLETTA mupirocin 2022-0 Yes Nasal, Univer s (BACTROBAN 5-02 Q12H, For ity of NASAL OINT) 18:45: 5 days, [place] 2 % nasal 33 First dose Medi jose ointment conditiona Branc h l, Routine insulin 2022-0 Yes 30U inject 30 Unive rs lispro 100 5-02 Units ity of unit/mL 17:42: under the [place] in [address] [facility] the Branch morning and 30 Units at noon and 30 Units in the evening. Sliding scale Insulin 2022-0 Yes 45U inject 45 Unive rs Glargine 5-02 Units ity of (LANTUS 17:42: under the [place] [facility] U-100 the [place] INSULIN) morning 100 unit/mL and 45 (3 mL) Units in injection the evening. amLODIPine 2022-0 Yes 10mg Take 1 Unive rs 10 mg 5-02 tablet by ity of tablet 17:42: mouth in [place] [address] the Medical morning. Branch buPROPion 2022-0 Yes 150mg Take 1 Unive rs SR 150 mg 5-02 tablet by ity o f SR tablet 17:42: mouth in [place] [address] the Medical morning. Branch furosemide 2022-0 Yes 160mg Take 2 Univ ers 80 mg 5-02 tablets by ity of tablet 17:42: mouth in [place] [address] the Medical morning. Branch lisinopriL 2022-0 Yes 5mg Take 1 Unive rs 5 mg tablet 5-02 tablet by ity of 17:42: mouth in [place] [address] the Medical morning. Branch metoprolol 2022-0 Yes 50mg Take 1 Unive rs succinate 5-02 tablet by ity o f XL 50 mg 24 17:42: mouth in [place] hr tablet 52 the Medical morning Branch and 1 tablet in the evening. pantoprazol 2022-0 Yes 40mg Take 1 Univ ers e 40 mg EC 5-02 tablet by ity of tablet 17:42: mouth in [place] [address] the Medical morning. Branch Levothyroxi Yes 150ug Take 150 U nivers ne 100 mcg 5-02 mcg by ity of capsule 17:42: mouth [place] [address] daily. Medical Branch aspirin 81 0 Yes 81mg Take 81 mg U nivers mg Cap 5-02 by mouth ity of 17:42: in the [place] [address] morning. Medical Branch Cholecalcif Yes Take by Uni vers daryl, 5-02 mouth. ity of Vitamin D3, 17:42: [place] 25 mcg Medical (1,000 Branch unit) capsule folic Yes Take by Univers acid/multiv 5-02 mouth ity of it-min/lute 17:42: daily. [facility] (CENTRUM 52 Medical SILVER Branch ORAL) vitamin 0 Yes 100ug Take 1 Univers B-12 100 5-02 tablet by ity of mcg tablet 17:42: mouth [place] [address] every Medical morning. Branch loratadine Yes Univers 10 mg 5-02 ity of tablet 17:42: [place] [address] Medical Branch multivitami 0 Yes Take by Uni vers n (MULTIPLE 5-02 mouth. ity of VITAMIN 17:42: [place] ESSENTIAL Medical ORAL) Branch fenofibrate 0 Yes 200mg Take 1 Uni vers micronized 5-02 capsule by ity of 200 mg 17:42: mouth. [place] capsule Medical Branch polyethylen 0 Yes 17g Take 1 Univ ers e glycol 5-02 Packet by ity of 3350 17 17:42: mouth. [place] gram powder Medical Branch clopidogreL 0 Yes 75mg Take 1 Univ ers (PLAVIX) 75 5-02 tablet by ity of mg tablet 17:42: mouth in [place] [address] the Medical morning. Branch insulin 0 Yes 30U inject 30 Unive rs lispro 100 5-02 Units ity of unit/mL 17:42: under the [place] inph 52 skin in Medical the Branch morning and 30 Units at noon and 30 Units in the evening. Sliding scale Insulin 2022-0 Yes 45U inject 45 Unive rs Glargine 5-02 Units ity of (LANTUS 17:42: under the [place] SOLOSTAR 52 skin in Medical U-100 the Branch INSULIN) morning 100 unit/mL and 45 (3 mL) Units in injection the evening. amLODIPine 2022-0 Yes 10mg Take 1 Unive rs 10 mg 5-02 tablet by ity of tablet 17:42: mouth in [place] [address] the Medical morning. Branch buPROPion 2022-0 Yes 150mg Take 1 Unive rs SR 150 mg 5-02 tablet by ity o f SR tablet 17:42: mouth in [place] [address] the Medical morning. Branch furosemide 2022-0 Yes 160mg Take 2 Univ ers 80 mg 5-02 tablets by ity of tablet 17:42: mouth in [place] [address] the Medical morning. Branch lisinopriL 2022-0 Yes 5mg Take 1 Unive rs 5 mg tablet 5-02 tablet by ity of 17:42: mouth in [place] [address] the Medical morning. Branch metoprolol 2022-0 Yes 50mg Take 1 Unive rs succinate 5-02 tablet by ity o f XL 50 mg 24 17:42: mouth in [place] hr [facility] 52 the Medical morning Branch and 1 tablet in the evening. pantoprazol 2022-0 Yes 40mg Take 1 Univ ers e 40 mg EC 5-02 tablet by ity of tablet 17:42: mouth in [place] [address] the Medical morning. Branch Levothyroxi 2022-0 Yes 150ug Take 150 U nivers ne 100 mcg 5-02 mcg by ity of capsule 17:42: mouth [place] [address] daily. Medical Branch aspirin 81 2022-0 Yes 81mg Take 81 mg U nivers mg Cap 5-02 by mouth ity of 17:42: in the [place] [address] morning. Medical Branch Cholecalcif 2022-0 Yes Take by Uni vers daryl, 5-02 mouth. ity of Vitamin D3, 17:42: [place] 25 [facility] Medical (1,000 Branch unit) capsule folic 2022-0 Yes Take by Univers acid/multiv 5-02 mouth ity of it-min/lute 17:42: daily. [place] in (CENTRUM 52 Medical SILVER Branch ORAL) vitamin 3-0 Yes 100ug Take 1 Univers B-12 100 5-02 tablet by ity of mcg tablet 17:42: mouth [place] [address] every Medical morning. Branch loratadine 2022-0 Yes Univers 10 mg 5-02 ity of tablet 17:42: [place] [address] Medical Branch multivitami 2023-0 Yes Take by Uni vers n (MULTIPLE 5-02 mouth. ity of VITAMIN 17:42: [place] ESSENTIAL Medical ORAL) Branch fenofibrate Yes 200mg Take 1 Uni vers micronized 5-02 capsule by ity of 200 mg 17:42: mouth. [place] capsule Medical Branch polyethylen Yes 17g Take 1 Univ ers e glycol 5-02 Packet by ity of 3350 17 17:42: mouth. [place] gram powder Medical Branch clopidogreL Yes 75mg Take 1 Univ ers (PLAVIX) 75 5-02 tablet by ity of mg tablet 17:42: mouth in [place] [address] the Medical morning. Branch mupirocin 2 Yes [id number] .5g Use 0.5 g Univers % nasal 5-02 in each ity of ointment 00:00: nostril [place] 00 every 12 Medical (twelve) Branch hours. mupirocin 2 Yes [id number] .5g Use 0.5 g Univers % nasal 5-02 in each ity of ointment 00:00: nostril [place] [address] every 12 Medical (twelve) Branch hours. mupirocin 2 Yes [id number] .5g Use 0.5 g Univers % nasal 5-02 in each ity of ointment 00:00: nostril [place] 00 every 12 Medical (twelve) Branch hours. mupirocin 2 2022- No [id number] .5g Use 0.5 g Univers % nasal 5-02 06-16 in each ity of ointment 00:00: 00:00 nostril [place] 00 :00 every 12 Medical (twelve) Branch hours. atorvastati 2022- No [id number] 40mg Take 1 Univers n 40 mg 5-02 06-02 tablet by ity of tablet 00:00: 04:59 mouth at [place] 00 :00 bedtime Medical for 30 Branch days. atorvastati 2022- No [id number] 40mg Take 1 Univers n 40 mg 5-02 06-02 tablet by ity of tablet 00:00: 04:59 mouth at [place] 00 :00 bedtime Medical for 30 Branch days. mupirocin Yes [id number] Uni vers (BACTROBAN 5-01 ity of OINT) 2 % 19:00: [place] skin 00 Medical ointment Branch heparin 2022- No [id number] 4600U DIALYSIS Univers 1,000 11-06 ONCE - PT ity of unit/mL 15:15: 16:26 ROOM, 1 [place] injection 00 :00 dose, On Medica l 4,600 Units 11/06/22 Br anch at 1015, Routine
A port : 2.3 ml V port : 2.3 ml To verónica: 4.6 ml
sulfur 2022- No [id number] 5mL 5 mL, Unive rs hexafluorid 11-05- Intravenou i ty of e microsphr 15:15: 15:15 s, ONCE, 1 [place] (LUMASON) 00 :00 dose, On Medica l injection 5 Sun Branch mL 11/05/22 at 1015, Routine
hourly team members approving Restricted medication : KIMBERLY TORRES polyethylen Yes 17g 17 g, Unive rs e glycol 4-30 Oral, ity of 3350 powder 14:00: DAILY, [place] 17 g 00 First dose Medical on [place] Branch 11/05/22 at 0900, Until Discontinu ed, [...] ed, Routine buPROPion Yes 150mg 150 mg, [facility] ers SR 4-30 Oral, ity of (WELLBUTRIN 14:00: DAILY, [place] SR) tablet 00 First dose Med ical 150 mg on Sun Branch 11/05/22 at 0900, Until Discontinu ed, Routine aspirin EC Yes 81mg 81 mg, [facility] rs tablet 81 4-30 Oral, ity of mg 14:00: DAILY, [place] 00 First dose Medical on Sun Branch 11/05/22 at 0900, Until Discontinu ed Sliding Yes Subcutaneo [facility] ers Scale 4-30 us, TID ity of Insulin - 13:00: MEALS+HS, [place] Lispro 00 First dose Medical (HumaLOG) on Sun Branch 11/05/22 at 0800, Until Discontinu ed, Routine sevelamer Yes 800mg 800 mg, [facility] ers (RENVELA) 4-30 Oral, TID ity o f tablet 800 13:00: MEALS, [place] mg 00 First dose Medical on Sun Branch 11/05/22 at 0800, Until Discontinu ed, Routine psyllium Yes 1{packe 1 Packet, U nivers husk 4-30 t} Oral, BID, ity of (METAMUCIL 13:00: First dose [place] (SUGAR 00 on Sun Medical FREE)) 3.4 11/05/22 at [facility] gram oral 0800, powder Until packet 1 Discontinu Packet ed, Routine cholecalcif 0 Yes 2000U 2,000 [facility] ers daryl 4-30 Units, ity of (vitamin 13:00: Oral, BID [place] D3) tablet 00 MEALS, Medical 2,000 Units First dose Br anch on 11/05/22 at 0800, Until Discontinu ed glucagon 0 Yes 1mg 1 mg, Univers (GLUCAGEN 4-30 Intramuscu ity of DIAGNOSTIC 12:13: [place], PRN, [place] KIT) 03 Starting Medical injection 1 on Sun Branch mg 11/05/22 at 0713, Until Discontinu ed, [...] IV Push, ity of (PF)) 02:39: Q6HPRN, [place] injection 4 30 Nausea and Me dical mg Vomiting Branch (N/V), Starting on 11/04/22 at 2139
Do ses of ondansetro n 16 mg [...] 0 Yes 50mg 50 mg, Univers (ULTRAM) 430 Oral, ity of tablet 50 02:03: Q6HPRN, [...] dose, On Medic al RTU 10 mEq [facility] 11/04/22 at 1715, Administer over 60 Minutes, 100 mL acetaminoph Yes 650mg 650 mg, Un hellen en 11-04 Oral, ity of (TYLENOL) 21:56: Q6HPRN, [place] tablet 650 18 Starting Medic al mg on [facility] Branch 11/04/22 at 1656, Until Discontinu ed, Routine, Pain (scale 1-3) KCL 2022- No 20meq 20 mEq, Univers (KLOR-CON 11-04 Oral, ity of M20) tablet 21:30: 22:08 ONCE, 1 [place] 20 mEq 00 :00 dose, On Medical [facility] 11/04/22 at 1630, VIOLETTA FENTanyl PF 2022-0 2022- No 25ug 25 mcg, Un hellen (SUBLIMAZE 11-04 Slow IV ity o f (PF)) 20:45: 20:53 Push, [place] injection 00 :00 ONCE, 1 Medical 25 mcg dose, On Branch 11/04/22 at 1545, STAT sevelamer 2022-0 Yes 3200mg Take 4 Univ ers 800 mg 1-03 tablets by ity of tablet 00:00: mouth. [place] Medical Branch sevelamer 2022-0 Yes 3200mg Take 4 Univ ers 800 mg 1-03 tablets by ity of tablet 00:00: mouth. [place] [facility] sevelamer 2022-0 Yes 3200mg Take 4 Univ ers 800 mg 1-03 tablets by ity of tablet 00:00: mouth. [place] Medical [place] sevelamer 2022-0 Yes 3200mg Take 4 Univ ers 800 mg 1-03 tablets by ity of tablet 00:00: mouth. [place] Medical [place] sevelamer 2022-0 Yes 3200mg Take 4 Univ ers 800 mg 1-03 tablets by ity of tablet 00:00: mouth. [place] [facility] sevelamer 2022-0 Yes 3200mg Take 4 Univ ers 800 mg 1-03 tablets by ity of tablet 00:00: mouth. [address] buPROPion 2021-07 Yes 150mg Q.5D Take [...] :00 needed for l heartburn. traMADoL 2021-07 [id number] 50mg Q8H Take 1 Metho di (Ultram) 50 0-19 10-25 tablet (50 s t mg tablet 00:00: 04:59 mg total) Ho spita 00 :00 by mouth l every 8 (eight) hours as needed for moderate pain for up to 5 days .acute pain. traMADoL 2021-07 [id number] 50mg Q8H Take 1 Metho di (Ultram) 50 0-19 10-25 tablet (50 s t mg tablet 00:00: 04:59 mg total) Ho spita 00 :00 by mouth l every 8 (eight) hours as needed for moderate pain for up to 5 days .acute pain. traMADoL 2021-07 [id number] 50mg Q8H Take 1 Metho di (Ultram) 50 0-19 10-25 tablet (50 s t mg tablet 00:00: 04:59 mg total) Ho spita 00 :00 by mouth l every 8 (eight) hours as needed for moderate pain for up to 5 days .acute pain. traMADoL 2021-07 [id number] 50mg Q8H Take 1 Metho di (Ultram) 50 0-19 10-25 tablet (50 s t mg tablet 00:00: 04:59 mg total) Ho spita 00 :00 by mouth l every 8 (eight) hours as needed for moderate pain for up to 5 days .acute pain. traMADoL 2021-07 [id number] 50mg Q8H Take 1 Metho di (Ultram) 50 0-19 10-25 tablet (50 s t mg tablet 00:00: 04:59 mg total) Ho spita 00 :00 by mouth l every 8 (eight) hours as needed for moderate pain for up to 5 days .acute pain. traMADoL 2021-07 [id number] 50mg Q8H Take 1 Metho di (Ultram) 50 0-19 10-25 tablet (50 s t mg tablet 00:00: 04:59 mg total) Ho spita 00 :00 by mouth l every 8 (eight) hours as needed for moderate pain for up to 5 days .acute pain. traMADoL 2021-07 [id number] 50mg Q8H Take 1 Metho di (Ultram) 50 0-19 10-25 tablet (50 s t mg tablet 00:00: 04:59 mg total) Ho spita 00 :00 by mouth l every 8 (eight) hours as needed for moderate pain for up to 5 days .acute pain. traMADoL 2021-07 [id number] 50mg Q8H Take 1 Metho di (Ultram) 50 0-19 10-25 tablet (50 s t mg tablet 00:00: 04:59 mg total) Ho spita 00 :00 by mouth l every 8 (eight) hours as needed for moderate pain for up to 5 days .acute pain. traMADoL 2021-07 [id number] 50mg Q8H Take 1 Metho di (Ultram) 50 0-19 10-25 tablet (50 s t mg tablet 00:00: 04:59 mg total) Ho spita 00 :00 by mouth l every 8 (eight) hours as needed for moderate pain for up to 5 days .acute pain. traMADoL 2021-07 [id number] 50mg Q8H Take 1 Metho di (Ultram) 50 0-19 10-25 tablet (50 s t mg tablet 00:00: 04:59 mg total) Ho spita 00 :00 by mouth l every 8 (eight) hours as needed for moderate pain for up to 5 days .acute pain. traMADoL 2021-07 [id number] 50mg Q8H Take 1 Metho di (Ultram) 50 0-19 10-25 tablet (50 s t mg tablet 00:00: 04:59 mg total) Ho spita 00 :00 by mouth l every 8 (eight) hours as needed for moderate pain for up to 5 days .acute pain. traMADoL 2021-07 No [id number] 50mg Q8H Take 1 Metho di (Ultram) 50 0-19 10-25 tablet (50 s t mg tablet 00:00: 04:59 mg total) Ho spita 00 :00 by mouth l every 8 (eight) hours as needed for moderate pain for up to 5 days .acute pain. traMADoL 2021-07 No [id number] 50mg Q8H Take 1 Metho di (Ultram) [...] TWICE l DAILY UNTIL ALL TAKEN. ciprofloxac TAKE 1 Met hodi in HCl 9-[address] (CIPRO) 250 00:00: 00:00 MOUTH [facility] tablet 00 :00 TWICE l DAILY UNTIL ALL TAKEN. traMADoL [id number] 50mg Q8H Take 1 Metho di (Ultram) 50 8- 09-04 tablet (50 s t mg tablet 00:00: 04:59 mg total) Ho spita 00 :00 by mouth l every 8 (eight) hours as needed for moderate pain for up to 5 days .acute pain. traMADoL [id number] 50mg Q8H Take 1 Metho di (Ultram) 50 8- 09-04 tablet (50 s t mg tablet 00:00: 04:59 mg total) Ho spita 00 :00 by mouth l every 8 (eight) hours as needed for moderate pain for up to 5 days .acute pain. traMADoL [id number] 50mg Q8H Take 1 Metho di (Ultram) 50 8- 09-04 tablet (50 s t mg tablet 00:00: 04:59 mg total) Ho spita 00 :00 by mouth l every 8 (eight) hours as needed for moderate pain for up to 5 days .acute pain. traMADoL [id number] 50mg Q8H Take 1 Metho di (Ultram) 50 8- 09-04 tablet (50 s t mg tablet 00:00: 04:59 mg total) Ho spita 00 :00 by mouth l every 8 (eight) hours as needed for moderate pain for up to 5 days .acute pain. traMADoL [id number] 50mg Q8H Take 1 Metho di (Ultram) 50 8- 09-04 tablet (50 s t mg tablet 00:00: 04:59 mg total) Ho spita 00 :00 by mouth l every 8 (eight) hours as needed for moderate pain for up to 5 days .acute pain. traMADoL 2022-0 2022- No [id number] 50mg Q8H Take 1 Metho di (Ultram) 50 8- 09-04 tablet (50 s t mg tablet 00:00: 04:59 mg total) Ho spita 00 :00 by mouth l every 8 (eight) hours as needed for moderate pain for up to 5 [place] [id number] 50mg Q8H Take 1 Metho di (Ultram) 50 8- 09-04 tablet (50 s t mg tablet 00:00: 04:59 mg total) Ho spita 00 :00 by mouth l every 8 (eight) hours as needed for moderate pain for up to 5 [place] [id number] 50mg Q8H Take 1 Metho di (Ultram) 50 03-06-04 tablet (50 s t mg tablet 00:00: 04:59 mg total) Ho spita 00 :00 by mouth l every 8 (eight) hours as needed for moderate pain for up to 5 days [place]. [place] [address] 50mg Q8H Take 1 Metho di (Ultram) 50 03-06-04 tablet (50 s t mg tablet 00:00: 04:59 mg total) [facility] :00 by mouth l every 8 (eight) hours as needed for moderate pain for up to 5 days .acute pain. traMADoL 92951 50mg Q8H Take 1 Metho di (Ultram) 50 03-06-04 tablet (50 s t mg tablet 00:00: 04:59 mg total) [facility] 00 :00 by mouth l every 8 (eight) hours as needed for moderate pain for up to 5 days .acute pain. traMADoL 2021- [place] [id number] 50mg Q8H Take 1 Metho di (Ultram) 50 8- 09-04 tablet (50 s t mg tablet 00:00: 04:59 mg total) [facility] 00 :00 by mouth l every 8 (eight) hours as needed for moderate pain for up to 5 [place] [id number] 50mg Q8H Take 1 Metho di (Ultram) [...] MG tablet 00:00: [facility]osp[facility] 00 l psyllium 2022-0 Yes 3.4g Take [...] 00:00: mouth. [facility] psyllium 0 Yes 1{packe Take [...] gram 00:00: [facility]osp[facility] packet 00 l Adult 0 Yes 325 mg = 1 [...] PO, l mg oral 21:06: Daily, 0 Jaocb n tablet 00 Refill(s) Adult Yes 325 [...] Daily, 0 l mg-40 mg 20:29: Refill(s) [facility] joss oral 00 delayed release tablet Centrum Yes PO, Daily, Jairo frida Silver 8-18 0 l Ultra 20:29: Refill(s) [facility] Claritin Yes 10 mg = 1 Jairo frida 8-18 tab, PO, l 20:29: Daily, [facility] Itching / rash / allergy symptoms, # 20 tab, 0 Refill(s) Stool Yes PO, [facility] Softener 8-18 Bedtime, 0 l with 20:29: Refill(s) [facility] aspirin-ome No 1 tab, PO, [facility] prazole 325 8-18 Daily, 0 l mg-40 mg 20:29: Refill(s) [facility] joss oral 00 delayed release tablet Centrum Yes PO, Daily, Jairo frida Silver 8-18 0 l Ultra 20:29: Refill(s) [facility] Claritin Yes 10 mg = 1 Jairo frida 8-18 tab, PO, l 20:29: Daily, [facility] Itching / rash / allergy symptoms, # 20 tab, 0 Refill(s) Stool Yes PO, [facility] Softener 8-18 Bedtime, 0 l with 20:29: Refill(s) [place] [facility] aspirin-ome No 1 tab, PO, [facility] prazole 325 8-18 Daily, 0 l mg-40 mg 20:29: Refill(s) [facility] joss oral 00 delayed release tablet Centrum Yes PO, Daily, Jairo frida Silver 8-18 0 l Ultra 20:29: Refill(s) [facility] Claritin Yes 10 mg = 1 Jairo [...] Silver 8-18 0 l Ultra 20:29: Refill(s) [facility] Claritin Yes 10 mg = 1 Jairo frida 8-18 tab, PO, l 20:29: Daily, PRN [place] 00 Itching / rash / allergy symptoms, # 20 tab, 0 Refill(s) Stool Yes PO, [facility] Softener 8-18 Bedtime, 0 l with 20:29: Refill(s) [facility] aspirin-ome No 1 tab, PO, [facility] prazole 325 8-18 Daily, 0 l mg-40 mg 20:29: Refill(s) [facility] joss oral 00 delayed release tablet Centrum 0 Yes PO, Daily, Jairo frida Silver 8-18 0 l Ultra 20:29: Refill(s) [place] Claritin Yes 10 mg = 1 Jairo frida 8-18 tab, PO, l 20:29: Daily, PRN [place] 00 Itching / rash / allergy symptoms, # 20 tab, 0 Refill(s) Stool Yes PO, [facility] Softener 8-18 Bedtime, 0 l with 20:29: Refill(s) [place] [facility] aspirin-ome No 1 tab, PO, [facility] prazole 325 8-18 Daily, 0 l mg-40 mg 20:29: Refill(s) [facility] joss oral 00 delayed release tablet Centrum Yes PO, Daily, J[place] frida Silver 8-18 0 l Ultra 20:29: Refill(s) [place] Claritin Yes 10 mg = 1 Jairo frida 8-18 tab, PO, l 20:29: Daily, [facility] [place] 00 Itching / rash / allergy symptoms, # 20 tab, 0 Refill(s) Stool Yes PO, [facility] Softener 8-18 Bedtime, 0 l with 20:29: Refill(s) [place] [facility] aspirin-ome No 1 tab, PO, [facility] prazole 325 8-18 Daily, 0 l mg-40 mg 20:29: Refill(s) [facility] joss oral 00 delayed release tablet Centrum Yes PO, Daily, J[place] frida Silver 8-18 0 l Ultra 20:29: Refill(s) [place] Claritin Yes 10 mg = 1 Jairo frida 8-18 tab, PO, l 20:29: Daily, PRN [place] 00 Itching / rash / allergy symptoms, # 20 tab, 0 Refill(s) Stool Yes PO, [facility] Softener 8-18 Bedtime, 0 l with 20:29: Refill(s) [place] [facility] aspirin-ome No 1 tab, PO, [facility] prazole 325 8-18 Daily, 0 l mg-40 mg 20:29: Refill(s) [facility] joss oral 00 delayed release tablet Centrum 0 Yes PO, Daily, Jairo frida Silver 8-18 0 l Ultra 20:29: Refill(s) [facility] Claritin Yes 10 mg = 1 Jairo [...] Silver 8-18 0 l Ultra 20:29: Refill(s) [place] Claritin Yes 10 mg = 1 Jairo frida 8-18 tab, PO, l 20:29: Daily, PRN [place] 00 Itching / rash / allergy symptoms, # 20 tab, 0 Refill(s) Stool Yes PO, [facility] Softener 8-18 Bedtime, 0 l with 20:29: Refill(s) [place] [facility] aspirin-ome No 1 tab, PO, [facility] prazole 325 8-18 Daily, 0 l mg-40 mg 20:29: Refill(s) [facility] joss oral 00 delayed release tablet Centrum Yes PO, Daily, Jairo frida Silver 8-18 0 l Ultra 20:29: Refill(s) [place] Claritin Yes 10 mg = 1 Jairo frida 8-18 tab, PO, l 20:29: Daily, [facility] 00 Itching / rash / allergy symptoms, # 20 tab, 0 Refill(s) Stool Yes PO, [facility] Softener 8-18 Bedtime, 0 l with 20:29: Refill(s) [place] [facility] aspirin-ome No 1 tab, PO, [facility] prazole 325 8-18 Daily, 0 l mg-40 mg 20:29: Refill(s) [facility] joss oral 00 delayed release tablet Centrum 0 Yes PO, Daily, Jairo frida Silver 8-18 0 l Ultra 20:29: Refill(s) [place] Claritin Yes 10 mg = 1 Jairo [...] Silver 8-18 0 l Ultra 20:29: Refill(s) [place] Claritin Yes 10 mg = 1 Jairo frida 8-18 tab, PO, l 20:29: Daily, PRN [place] 00 Itching / rash / allergy symptoms, # 20 tab, 0 Refill(s) Stool Yes PO, Mem[facility] Softener 8-18 Bedtime, 0 l with 20:29: Refill(s) [place] [facility] aspirin-ome No 1 tab, PO, [facility] prazole 325 8-18 Daily, 0 l mg-40 mg 20:29: Refill(s) [facility] joss oral 00 delayed release tablet Centrum Yes PO, Daily, Jairo frida Silver 8-18 0 l Ultra 20:29: Refill(s) [place] Claritin Yes 10 mg = 1 Jairo frida 8-18 tab, PO, l 20:29: Daily, PRN [place] 00 Itching / rash / allergy symptoms, # 20 tab, 0 Refill(s) Stool Yes PO, Mem[facility] Softener 8-18 Bedtime, 0 l with 20:29: Refill(s) [place] [facility] aspirin-ome No 1 tab, PO, [facility] prazole 325 8-18 Daily, 0 l mg-40 mg 20:29: Refill(s) [facility] joss oral 00 delayed release tablet Centrum 0 Yes PO, Daily, Jairo frida Silver 8-18 0 l Ultra 20:29: Refill(s) [place] Claritin Yes 10 mg = 1 Jairo frida 8-18 tab, PO, l 20:29: Daily, PRN [place] 00 Itching / rash / allergy symptoms, # 20 tab, 0 Refill(s) Stool Yes PO, Mem[facility] Softener 8-18 Bedtime, 0 l with 20:29: Refill(s) [place] [facility] aspirin-ome No 1 tab, PO, [facility] prazole 325 8-18 Daily, 0 l mg-40 mg 20:29: Refill(s) [facility] joss oral 00 delayed release tablet Centrum Yes PO, Daily, J[place] frida Silver 8-18 0 l Ultra 20:29: Refill(s) [place] Claritin Yes 10 mg = 1 Jairo frida 8-18 tab, PO, l 20:29: Daily, PRN [place] 00 Itching / rash / allergy symptoms, # 20 tab, 0 Refill(s) Stool Yes PO, [facility] Softener 8-18 Bedtime, 0 l with 20:29: Refill(s) [place] [facility] aspirin-ome No 1 tab, PO, [facility] prazole 325 8-18 Daily, 0 l mg-40 mg 20:29: Refill(s) [facility] joss oral 00 delayed release tablet Centrum Yes PO, Daily, Jairo frida Silver 8-18 0 l Ultra 20:29: Refill(s) [place] Claritin Yes 10 mg = 1 Jairo frida 8-18 tab, PO, l 20:29: Daily, [facility] [place] 00 Itching / rash / allergy symptoms, # 20 tab, 0 Refill(s) Stool Yes PO, Mem[facility] Softener 8-18 Bedtime, 0 l with 20:29: Refill(s) [place] [facility] aspirin-ome No 1 tab, PO, [facility] prazole 325 8-18 Daily, 0 l mg-40 mg 20:29: Refill(s) [facility] joss oral 00 delayed release tablet Centrum Yes PO, Daily, Jairo frida Silver 8-18 0 l Ultra 20:29: Refill(s) [place] Claritin Yes 10 mg = 1 Jairo frida 8-18 tab, PO, l 20:29: Daily, PRN [place] 00 Itching / rash / allergy symptoms, # 20 tab, 0 Refill(s) Stool Yes PO, Mem[facility] Softener 8-18 Bedtime, 0 l with 20:29: Refill(s) [place] [facility] aspirin-ome No 1 tab, PO, [facility] prazole 325 8-18 Daily, 0 l mg-40 mg 20:29: Refill(s) [facility] joss oral 00 delayed release tablet Centrum Yes PO, Daily, J[facility] frida Silver 8-18 0 l Ultra 20:29: Refill(s) [place] Claritin Yes 10 mg = 1 Jairo frida 8-18 tab, PO, l 20:29: Daily, PRN [place] Itching / rash / allergy symptoms, # 20 tab, 0 Refill(s) Stool Yes PO, [facility] Softener 8-18 Bedtime, 0 l with 20:29: Refill(s) [place] [facility] aspirin-ome No 1 tab, PO, [facility] prazole 325 8-18 Daily, 0 l mg-40 mg 20:29: Refill(s) [facility] joss oral 00 delayed release tablet Centrum Yes PO, Daily, Jairo frida Silver 8-18 0 l Ultra 20:29: Refill(s) [place] Claritin Yes 10 mg = 1 Jairo frida 8-18 tab, PO, l 20:29: Daily, PRN [place] 00 Itching / rash / allergy symptoms, # 20 tab, 0 Refill(s) Stool Yes PO, [facility] Softener 8-18 Bedtime, 0 l with 20:29: Refill(s) [place] [facility] aspirin-ome No 1 tab, PO, [facility] prazole 325 8-18 Daily, 0 l mg-40 mg 20:29: Refill(s) [facility] joss oral 00 delayed release tablet Centrum 0 Yes PO, Daily, Jairo frida Silver 8-18 0 l Ultra 20:29: Refill(s) [facility] Claritin Yes 10 mg = 1 Jairo [...] Silver 8-18 0 l Ultra 20:29: Refill(s) [facility] Claritin Yes 10 mg = 1 Jairo frida 8-18 tab, PO, l 20:29: Daily, PRN [place] 00 Itching / rash / allergy symptoms, # 20 tab, 0 Refill(s) Stool Yes PO, [facility] Softener 8-18 Bedtime, 0 l with 20:29: Refill(s) [facility] aspirin-ome No 1 tab, PO, [facility] prazole 325 8-18 Daily, 0 l mg-40 mg 20:29: Refill(s) [facility] joss oral 00 delayed release tablet Centrum Yes PO, Daily, J[facility] frida Silver 8-18 0 l Ultra 20:29: Refill(s) [facility] Claritin Yes 10 mg = 1 Jairo frida 8-18 tab, PO, l 20:29: Daily, [facility] 00 Itching / rash / allergy symptoms, # 20 tab, 0 Refill(s) Stool Yes PO, Mem[facility] Softener 8-18 Bedtime, 0 l with 20:29: Refill(s) [facility] aspirin-ome No 1 tab, PO, [facility] prazole 325 8-18 Daily, 0 l mg-40 mg 20:29: Refill(s) [facility] joss oral 00 delayed release tablet Centrum 0 Yes PO, Daily, Jairo frida Silver 8-18 0 l Ultra 20:29: Refill(s) [facility] Claritin Yes 10 mg = 1 Jairo frida 8-18 tab, PO, l 20:29: Daily, [facility]N [place] 00 Itching / rash / allergy symptoms, # 20 tab, 0 Refill(s) Stool Yes PO, [facility] Softener 8-18 Bedtime, 0 l with 20:29: Refill(s) [facility] aspirin-ome No 1 tab, PO, [facility] prazole 325 8-18 Daily, 0 l mg-40 mg 20:29: Refill(s) [facility] joss oral 00 delayed release tablet Centrum Yes PO, Daily, Jairo frida Silver 8-18 0 l Ultra 20:29: Refill(s) [facility] Claritin Yes 10 mg = 1 Jairo frida 8-18 tab, PO, l 20:29: Daily, [facility]N [place] 00 Itching / rash / allergy symptoms, # 20 tab, 0 Refill(s) Stool Yes PO, [facility] Softener 8-18 Bedtime, 0 l with 20:29: Refill(s) [place] [facility] aspirin-ome No 1 tab, PO, [facility] prazole 325 8-18 Daily, 0 l mg-40 mg 20:29: Refill(s) [facility] joss oral 00 delayed release tablet Centrum Yes PO, Daily, Jairo frida Silver 8-18 0 l Ultra 20:29: Refill(s) [facility] Claritin Yes 10 mg = 1 Jairo frida 8-18 tab, PO, l 20:29: Daily, PRN [place] 00 Itching / rash / allergy symptoms, # 20 tab, 0 Refill(s) Stool Yes PO, Mem[facility] Softener 8-18 Bedtime, 0 l with 20:29: Refill(s) [place] [facility] aspirin-ome No 1 tab, PO, [facility] prazole 325 8-18 Daily, 0 l mg-40 mg 20:29: Refill(s) [facility] joss oral 00 delayed release tablet Centrum 0 Yes PO, Daily, J[place] frida Silver 8-18 0 l Ultra 20:29: Refill(s) [place] Claritin Yes 10 mg = 1 Jairo frida 8-18 tab, PO, l 20:29: Daily, PRN [place] 00 Itching / rash / allergy symptoms, # 20 tab, 0 Refill(s) Stool Yes PO, Mem[facility] Softener 8-18 Bedtime, 0 l with 20:29: Refill(s) [place] [facility] aspirin-ome No 1 tab, PO, [facility] prazole 325 8-18 Daily, 0 l mg-40 mg 20:29: Refill(s) [facility] joss oral 00 delayed release tablet Centrum Yes PO, Daily, Jairo frida Silver 8-18 0 l Ultra 20:29: Refill(s) [place] Claritin Yes 10 mg = 1 Jairo frida 8-18 tab, PO, l 20:29: Daily, [facility]N [place] 00 Itching / rash / allergy symptoms, # 20 tab, 0 Refill(s) Stool Yes PO, Memoria Softener 8-18 Bedtime, 0 l with 20:29: Refill(s) [place] [facility] aspirin-ome No 1 tab, PO, Mem[facility] prazole 325 8-18 Daily, 0 l mg-40 mg 20:29: Refill(s) [facility] joss oral 00 delayed release tablet Centrum Yes PO, Daily, Jairo frida Silver 8-18 0 l Ultra 20:29: Refill(s) [place] Claritin Yes 10 mg = 1 Jairo frida 8-18 tab, PO, l 20:29: Daily, [facility]N [place] 00 Itching / rash / allergy symptoms, # 20 tab, 0 Refill(s) Stool Yes PO, Memoria Softener 8-18 Bedtime, 0 l with 20:29: Refill(s) [place] [facility] aspirin-ome No 1 tab, PO, Memoria prazole 325 8-18 Daily, 0 l mg-40 mg 20:29: Refill(s) [facility] joss oral 00 delayed release tablet Centrum 0 Yes PO, Daily, Jairo frida Silver 8-18 0 l Ultra 20:29: Refill(s) [place] Claritin Yes 10 mg = 1 Jairo frida 8-18 tab, PO, l 20:29: Daily, PRN [place] 00 Itching / rash / allergy symptoms, # 20 tab, 0 Refill(s) Stool Yes PO, [facility] Softener 8-18 Bedtime, 0 l with 20:29: Refill(s) [place] [facility] aspirin-ome No 1 tab, PO, Mem[facility] prazole 325 8-18 Daily, 0 l mg-40 mg 20:29: Refill(s) [facility] joss oral 00 delayed release tablet Centrum Yes PO, Daily, Jairo frida Silver 8-18 0 l Ultra 20:29: Refill(s) [place] Claritin Yes 10 mg = 1 Jairo frida 8-18 tab, PO, l 20:29: Daily, PRN [place] 00 Itching / rash / allergy symptoms, # 20 tab, 0 Refill(s) Stool Yes PO, Memoria Softener 8-18 Bedtime, 0 l with 20:29: Refill(s) [place] Lax[facility] aspirin-ome No 1 tab, PO, Mem[facility] prazole 325 8-18 Daily, 0 l mg-40 mg 20:29: Refill(s) [facility] joss oral 00 delayed release tablet Centrum Yes PO, Daily, Jairo frida Silver 8-18 0 l Ultra 20:29: Refill(s) [place] Claritin Yes 10 mg = 1 Jairo frida 8-18 tab, PO, l 20:29: Daily, PRN [place] 00 Itching / rash / allergy symptoms, # 20 tab, 0 Refill(s) Stool 0 Yes PO, Mem[facility] Softener 8-18 Bedtime, 0 l with 20:29: Refill(s) [place] [facility] aspirin-ome No 1 tab, PO, [facility] prazole 325 8-18 Daily, 0 l mg-40 mg 20:29: Refill(s) [facility] joss oral 00 delayed release tablet Centrum 0 Yes PO, Daily, Jairo frida Silver 8-18 0 l Ultra 20:29: Refill(s) [place] Claritin Yes 10 mg = 1 Jairo frida 8-18 tab, PO, l 20:29: Daily, PRN [place] 00 Itching / rash / allergy symptoms, # 20 tab, 0 Refill(s) Stool Yes PO, Mem[facility] Softener 8-18 Bedtime, 0 l with 20:29: Refill(s) [place] [facility] aspirin-ome No 1 tab, PO, [facility] prazole 325 8-18 Daily, 0 l mg-40 mg 20:29: Refill(s) [facility] joss oral 00 delayed release tablet Centrum Yes PO, Daily, Jairo frida Silver 8-18 0 l Ultra 20:29: Refill(s) [place] Claritin Yes 10 mg = 1 Jairo frida 8-18 tab, PO, l 20:29: Daily, PRN [place] 00 Itching / rash / allergy symptoms, # 20 tab, 0 Refill(s) Stool Yes PO, Mem[facility] Softener 8-18 Bedtime, 0 l with 20:29: Refill(s) [place] [facility] aspirin-ome No 1 tab, PO, [facility] prazole 325 8-18 Daily, 0 l mg-40 mg 20:29: Refill(s) [facility] joss oral 00 delayed release tablet Centrum Yes PO, Daily, J[facility] frida Silver 8-18 0 l Ultra 20:29: Refill(s) [place] Claritin Yes 10 mg = 1 Jairo frida 8-18 tab, PO, l 20:29: Daily, PRN [place] 00 Itching / rash / allergy symptoms, # 20 tab, 0 Refill(s) Stool Yes PO, [facility] Softener 8-18 Bedtime, 0 l with 20:29: Refill(s) [place] [facility] aspirin-ome No 1 tab, PO, [facility] prazole 325 8-18 Daily, 0 l mg-40 mg 20:29: Refill(s) [facility] joss oral 00 delayed release tablet Centrum Yes PO, Daily, J[facility] frida Silver 8-18 0 l Ultra 20:29: Refill(s) [place] Claritin Yes 10 mg = 1 Jairo frida 8-18 tab, PO, l 20:29: Daily, [facility]N [place] 00 Itching / rash / allergy symptoms, # 20 tab, 0 Refill(s) Stool Yes PO, [facility] Softener 8-18 Bedtime, 0 l with 20:29: Refill(s) [place] [facility] aspirin-ome No 1 tab, PO, [facility] prazole 325 8-18 Daily, 0 l mg-40 mg 20:29: Refill(s) [facility] joss oral 00 delayed release tablet Centrum Yes PO, Daily, Jairo frida Silver 8-18 0 l Ultra 20:29: Refill(s) [place] Claritin Yes 10 mg = 1 Jairo frida 8-18 tab, PO, l 20:29: Daily, [facility]N [place] 00 Itching / rash / allergy symptoms, # 20 tab, 0 Refill(s) Stool Yes PO, [facility] Softener 8-18 Bedtime, 0 l with 20:29: Refill(s) [place] [facility] aspirin-ome No 1 tab, PO, [facility] prazole 325 8-18 Daily, 0 l mg-40 mg 20:29: Refill(s) [facility] joss oral 00 delayed release tablet Centrum 0 Yes PO, Daily, J[facility] frida Silver 8-18 0 l Ultra 20:29: Refill(s) [place] Claritin Yes 10 mg = 1 Jairo frida 8-18 tab, PO, l 20:29: Daily, PRN [place] 00 Itching / rash / allergy symptoms, # 20 tab, 0 Refill(s) Stool 0 Yes PO, [facility] Softener 8-18 Bedtime, 0 l with 20:29: Refill(s) [place] [facility] aspirin-ome No 1 tab, PO, [facility] prazole 325 8-18 Daily, 0 l mg-40 mg 20:29: Refill(s) [facility] joss oral 00 delayed release tablet Centrum Yes PO, Daily, J[facility] frida Silver 8-18 0 l Ultra 20:29: Refill(s) [place] Claritin Yes 10 mg = 1 Jairo frida 8-18 tab, PO, l 20:29: Daily, [facility]N [place] 00 Itching / rash / allergy symptoms, # 20 tab, 0 Refill(s) Stool Yes PO, [facility] Softener 8-18 Bedtime, 0 l with 20:29: Refill(s) [place] [facility] aspirin-ome No 1 tab, PO, Memoria [...] 8-18 Bedtime, 0 l with 20:29: Refill(s) [place] [facility] aspirin-ome No 1 tab, PO, [facility] prazole 325 8-18 Daily, 0 l mg-40 mg 20:29: Refill(s) [facility] joss oral 00 delayed release tablet Centrum Yes PO, Daily, J[facility] frida Silver 8-18 0 l Ultra 20:29: Refill(s) [place] Claritin Yes 10 mg = 1 Jairo frida 8-18 tab, PO, l 20:29: Daily, PRN [place] 00 Itching / rash / allergy symptoms, # 20 tab, 0 Refill(s) Stool Yes PO, [facility] Softener 8-18 Bedtime, 0 l with 20:29: Refill(s) [place] [facility] aspirin-ome No 1 tab, PO, [facility] prazole 325 8-18 Daily, 0 l mg-40 mg 20:29: Refill(s) [facility] joss oral 00 delayed release tablet Centrum Yes PO, Daily, [facility] frida Silver 8-18 0 l Ultra 20:29: Refill(s) [place] Claritin Yes 10 mg = 1 Jairo frida 8-18 tab, PO, l 20:29: Daily, PRN [place] 00 Itching / rash / allergy symptoms, # 20 tab, 0 Refill(s) aspirin-ome No 1 tab, PO, [facility] prazole 325 8-18 Daily, 0 l mg-40 mg 20:29: Refill(s) [facility] joss oral 00 delayed release tablet Stool Yes PO, [facility] Softener 8-18 Bedtime, 0 l with 20:29: Refill(s) [facility] 00 Centrum Yes PO, Daily, [facility] frida Silver 8-18 0 l Ultra 20:29: Refill(s) [place] aspirin-ome No 1 tab, PO, [facility] prazole 325 8-18 Daily, 0 l mg-40 mg 20:29: Refill(s) [facility] joss oral 00 delayed release tablet Centrum Yes PO, Daily, [facility] frida Silver 8-18 0 l Ultra 20:29: Refill(s) [place] Claritin Yes 10 mg = 1 Jairo frida 8-18 tab, PO, l 20:29: Daily, PRN [place] 00 Itching / rash / allergy symptoms, # 20 tab, 0 Refill(s) Stool Yes PO, [facility] Softener 8-18 Bedtime, 0 l with 20:29: Refill(s) [facility] Claritin Yes 10 mg = 1 Jairo frida 8-18 tab, PO, l 20:29: Daily, [facility]N [place] 00 Itching / rash / allergy symptoms, # 20 tab, 0 Refill(s) aspirin-ome No 1 tab, PO, [facility] prazole 325 8-18 Daily, 0 l mg-40 mg 20:29: Refill(s) [facility] joss oral 00 delayed release tablet Centrum Yes PO, Daily, [facility] frida Silver 8-18 0 l Ultra 20:29: Refill(s) [place] Claritin Yes 10 mg = 1 Jairo frida 8-18 tab, PO, l 20:29: Daily, PRN [place] 00 Itching / rash / allergy symptoms, # 20 tab, 0 Refill(s) Stool Yes PO, [facility] Softener 8-18 Bedtime, 0 l with 20:29: Refill(s) [facility] 00 Stool Yes PO, [facility] Softener [...] 8-18 tab, PO, l 20:29: Daily, [facility]N [place] 00 Itching / rash / allergy symptoms, # 20 tab, 0 Refill(s) Stool Yes PO, [facility] Softener 8-18 Bedtime, 0 l with 20:29: Refill(s) [place] [facility] aspirin-ome No 1 tab, PO, [facility] prazole 325 8-18 Daily, 0 l mg-40 mg 20:29: Refill(s) [facility] joss oral 00 delayed release tablet Centrum Yes PO, Daily, [facility] frida Silver 8-18 0 l Ultra 20:29: Refill(s) [place] Claritin Yes 10 mg = 1 Jairo frida 8-18 tab, PO, l 20:29: Daily, PRN [place] 00 Itching / rash / allergy symptoms, # 20 tab, 0 Refill(s) Stool 0 Yes PO, [facility] Softener 8-18 Bedtime, 0 l with 20:29: Refill(s) [place] [facility] aspirin-ome No 1 tab, PO, [facility] prazole 325 8-18 Daily, 0 l mg-40 mg 20:29: Refill(s) [facility] joss oral 00 delayed release tablet Centrum Yes PO, Daily, [facility] frida Silver 8-18 0 l Ultra 20:29: Refill(s) [place] Claritin Yes 10 mg = 1 Jairo frida 8-18 tab, PO, l 20:29: Daily, [facility]N [place] 00 Itching / rash / allergy symptoms, # 20 tab, 0 Refill(s) Stool Yes PO, [facility] Softener 8-18 Bedtime, 0 l with 20:29: Refill(s) [place] [facility] aspirin-ome No 1 tab, PO, [facility] prazole 325 8-18 Daily, 0 l mg-40 mg 20:29: Refill(s) [facility] joss oral 00 delayed release tablet Centrum Yes PO, Daily, Aji[place] frida Silver 8-18 0 l Ultra 20:29: Refill(s) [place] Claritin Yes 10 mg = 1 Jairo frida 8-18 tab, PO, l 20:29: Daily, PRN [place] 00 Itching / rash / allergy symptoms, # 20 tab, 0 Refill(s) Stool 0 Yes PO, [facility] Softener 8-18 Bedtime, 0 l with 20:29: Refill(s) [place] [facility] aspirin-ome No 1 tab, PO, [facility] prazole 325 8-18 Daily, 0 l mg-40 mg 20:29: Refill(s) [facility] joss oral 00 delayed release tablet Centrum Yes PO, Daily, [facility] frida Silver 8-18 0 l Ultra 20:29: Refill(s) [place] Claritin Yes 10 mg = 1 Jairo frida 8-18 tab, PO, l 20:29: Daily, PRN [place] 00 Itching / rash / allergy symptoms, # 20 tab, 0 Refill(s) Stool Yes PO, [facility] Softener 8-18 Bedtime, 0 l with 20:29: Refill(s) [place] Lax[facility] aspirin-ome No 1 tab, PO, [facility] prazole 325 8-18 Daily, 0 l mg-40 mg 20:29: Refill(s) [facility] joss oral 00 delayed release tablet Centrum Yes PO, Daily, [facility] frida Silver 8-18 0 l Ultra 20:29: Refill(s) [place] Claritin Yes 10 mg = 1 Jairo frida 8-18 tab, PO, l 20:29: Daily, PRN [place] 00 Itching / rash / allergy symptoms, # 20 tab, 0 Refill(s) Stool Yes PO, [facility] Softener 8-18 Bedtime, 0 l with 20:29: Refill(s) [place] Lax[facility] aspirin-ome No 1 tab, PO, [facility] prazole 325 8-18 Daily, 0 l mg-40 mg 20:29: Refill(s) [facility] joss oral 00 delayed release tablet Centrum Yes PO, Daily, [place] fr[facility] Silver 8-18 0 l Ultra 20:29: Refill(s) [place] Claritin Yes 10 mg = 1 Jairo frida 8-18 tab, PO, l 20:29: Daily, PRN [place] 00 Itching / rash / allergy symptoms, # 20 tab, 0 Refill(s) aspirin-ome No 1 tab, PO, [facility] prazole 325 8-18 Daily, 0 l mg-40 mg 20:29: Refill(s) [facility] joss oral 00 delayed release tablet Stool Yes PO, [facility] Softener 8-18 Bedtime, 0 l with 20:29: Refill(s) [place] Lax[facility] 00 Centrum Yes PO, Daily, [facility] frida Silver 8-18 0 l Ultra 20:29: Refill(s) [place] Claritin Yes 10 mg = 1 Jairo frida 8-18 tab, PO, l 20:29: Daily, PRN [place] 00 Itching / rash / allergy symptoms, # 20 tab, 0 Refill(s) Stool Yes PO, [facility] Softener 8-18 Bedtime, 0 l with 20:29: Refill(s) [place] [facility] 00 aspirin-ome No 1 tab, PO, [facility] prazole 325 8-18 Daily, 0 l mg-40 mg 20:29: Refill(s) [facility] joss oral 00 delayed release tablet Centrum Yes PO, Daily, [facility] fr[facility] Silver 8-18 0 l Ultra 20:29: Refill(s) [facility] Claritin Yes 10 mg = 1 Jairo frida 8-18 tab, PO, l 20:29: Daily, PRN [place] 00 Itching / rash / allergy symptoms, # 20 tab, 0 Refill(s) Stool Yes PO, [facility] Softener 8-18 Bedtime, 0 l with 20:29: Refill(s) [place] [facility] furosemide Yes 80 mg = 1 Me moria 80 mg oral 8-18 tab, PO, l tablet 20:28: Daily, # [place] 00 90 tab, 0 Refill(s) Insulin Yes [...] tab, PO, l tablet 20:28: Daily, # [place] 00 90 tab, 0 Refill(s) Insulin 0 [...] tab, PO, l tablet 20:28: Daily, # [place] 00 90 tab, 0 Refill(s) Insulin 0 [...] tab, PO, l tablet 20:28: Daily, # [place] 00 90 tab, 0 Refill(s) Insulin 0 [...] tab, PO, l tablet 20:28: Daily, # [place] 00 90 tab, 0 Refill(s) Insulin 0 [...] tab, PO, l tablet 20:28: Daily, # [place] 00 90 tab, 0 Refill(s) Insulin 0 [...] tab, PO, l tablet 20:28: Daily, # [place] 00 90 tab, 0 Refill(s) Insulin 0 [...] tab, PO, l tablet 20:28: Daily, # [place] 00 90 tab, 0 Refill(s) Insulin 0 [...] tab, PO, l tablet 20:28: Daily, # [place] 00 90 tab, 0 Refill(s) Insulin 2020-0 [...] Jacob n Injectable 00 Solution [Humalog] cephalexin 2020-0 Yes 500 mg = 1 M emoria 500 mg oral 8-18 cap, PO, l capsule 20:28: QID, # 20 Macey nn 00 cap, 0 Refill(s) furosemide 2020-0 Yes 80 mg = 1 Me moria 80 mg oral 8-18 tab, PO, l tablet 20:28: Daily, # [place] 00 90 tab, 0 Refill(s) Insulin 2020-0 [...] tab, PO, l tablet 20:28: Daily, # [place] 00 90 tab, 0 Refill(s) Insulin 2020-0 Yes 1 unit, [facility] Lispro 100 8-18 SUB-Q, 0 l UNT/ML 20:28: Refill(s) [facility] n Injectable 00 Solution [Humalog] cephalexin 0 Yes 500 mg = 1 M emoria 500 mg oral 8-18 cap, PO, l capsule 20:28: QID, # 20 Macey nn 00 cap, 0 Refill(s) cephalexin 2020-0 Yes 500 mg = 1 M emoria 500 mg oral 8-18 cap, PO, l capsule 20:28: QID, # 20 Macey nn 00 cap, 0 Refill(s) furosemide 2020-0 Yes 80 mg = 1 Me moria 80 mg oral 8-18 tab, PO, l tablet 20:28: Daily, # [place] 00 90 tab, 0 Refill(s) Insulin 2020-0 Yes 1 unit, Memoria Lispro 100 8-18 SUB-Q, 0 l UNT/ML 20:28: Refill(s) Jacob n Injectable 00 Solution [Humalog] furosemide 2020-0 Yes 80 mg = 1 Me moria [...] tab, PO, l tablet 20:28: Daily, # [place] 00 90 tab, 0 Refill(s) Insulin 0 [...] tab, PO, l tablet 20:28: Daily, # [place] 00 90 tab, 0 Refill(s) Insulin Yes [...] tab, PO, l tablet 20:28: Daily, # [place] 00 90 tab, 0 Refill(s) Insulin 0 [...] tab, PO, l tablet 20:28: Daily, # [place] 00 90 tab, 0 Refill(s) Insulin 0 [...] tab, PO, l tablet 20:28: Daily, # [place] 00 90 tab, 0 Refill(s) Insulin 0 [...] tab, PO, l tablet 20:28: Daily, # [place] 00 90 tab, 0 Refill(s) Insulin 0 [...] tab, PO, l tablet 20:28: Daily, # [place] 00 90 tab, 0 Refill(s) Insulin 0 [...] tab, PO, l tablet 20:28: Daily, # [place] 00 90 tab, 0 Refill(s) Insulin 0 [...] tab, PO, l tablet 20:28: Daily, # [place] 00 90 tab, 0 Refill(s) Insulin 0 [...] tab, PO, l tablet 20:28: Daily, # [place] 00 90 tab, 0 Refill(s) Insulin 0 [...] tab, PO, l tablet 20:28: Daily, # [place] 00 90 tab, 0 Refill(s) Insulin 0 [...] tab, PO, l tablet 20:28: Daily, # [place] 00 90 tab, 0 Refill(s) Insulin 0 [...] tab, PO, l tablet 20:28: Daily, # [place] 00 90 tab, 0 Refill(s) Insulin Yes [...] tab, PO, l tablet 20:28: Daily, # [place] 00 90 tab, 0 Refill(s) Insulin 2021-0 [...] tab, PO, l tablet 20:28: Daily, # [place] 00 90 tab, 0 Refill(s) Insulin Yes [...] tab, 0 Refill(s) Insulin Yes 1 unit, Anita[place] Lispro 100 8-18 SUB-Q, 0 l UNT/ML 20:28: Refill(s) Jacob n Injectable 00 Solution [Humalog] cephalexin Yes 500 mg = 1 M emoria 500 mg oral 8-18 cap, PO, l capsule 20:28: QID, # 20 Macey nn 00 cap, 0 Refill(s) levothyroxi Yes 150 Memori a [...] 50 MG 20:27: BID, # 30 Herm ojss Oral Tablet 00 tab, 0 Refill(s) levothyroxi [...] Daily, # 30 tab, 0 Refill(s) lisinopril 2021-0 Yes 5 mg = 1 Mem oria 5 mg oral 8-18 tab, PO, l tablet 20:27: Daily, # [place] 00 90 tab, 1 Refill(s) Metoprolol 0 [...] tab, PO, l tablet 20:27: Daily, # [place] 00 90 tab, 1 Refill(s) Metoprolol 0 Yes 25 mg = 1 Me moria Succinate 8-18 tab, PO, l ER 25 mg 20:27: Daily, # Macey nn oral 00 90 tab, 0 tablet, Refill(s) extended release tramadol 2021-0 Yes 50 mg = 1 Jairo frida [...] tab, PO, l tablet 20:27: Daily, # [place] 00 90 tab, 1 Refill(s) Metoprolol Yes [...] tab, PO, l tablet 20:27: Daily, # [place] 00 90 tab, 1 Refill(s) Metoprolol 0 [...] tab, PO, l tablet 20:27: Daily, # [place] 00 90 tab, 1 Refill(s) Metoprolol 0 [...] tab, PO, l tablet 20:27: Daily, # [place] 00 90 tab, 1 Refill(s) Metoprolol Yes [...] tab, PO, l tablet 20:27: Daily, # [place] 00 90 tab, 1 Refill(s) Metoprolol 0 [...] tab, PO, l tablet 20:27: Daily, # [place] 00 90 tab, 1 Refill(s) Metoprolol 2020-0 [...] tab, PO, l tablet 20:27: Daily, # [place] 00 90 tab, 1 Refill(s) Metoprolol 0 [...] tab, PO, l tablet 20:27: Daily, # [place] 00 90 tab, 1 Refill(s) Metoprolol Yes [...] tab, PO, l tablet 20:27: Daily, # [place] 00 90 tab, 1 Refill(s) Metoprolol 0 [...] tab, PO, l tablet 20:27: Daily, # [place] 00 90 tab, 1 Refill(s) Metoprolol Yes [...] tab, PO, l tablet 20:27: Daily, # [place] 00 90 tab, 1 Refill(s) Metoprolol 0 [...] tab, PO, l tablet 20:27: Daily, # [place] 00 90 tab, 1 Refill(s) Metoprolol 0 [...] tab, PO, l tablet 20:27: Daily, # [place] 00 90 tab, 1 Refill(s) Metoprolol 0 [...] tab, PO, l tablet 20:27: Daily, # [place] 00 90 tab, 1 Refill(s) Metoprolol Yes [...] tab, PO, l tablet 20:27: Daily, # [place] 00 90 tab, 1 Refill(s) Metoprolol 0 [...] tab, PO, l tablet 20:27: Daily, # [place] 00 90 tab, 1 Refill(s) Metoprolol 0 [...] Oral Tablet 00 tab, 0 Refill(s) lisinopril 0 Yes 5 mg = 1 Mem oria 5 mg oral 8-18 tab, PO, l tablet 20:27: Daily, # [place] 00 90 tab, 1 Refill(s) levothyroxi Yes [...] tab, PO, l tablet 20:27: Daily, # [place] 00 90 tab, 1 Refill(s) Metoprolol Yes [...] tab, PO, l tablet 20:27: Daily, # [place] 00 90 tab, 1 Refill(s) Metoprolol 2020-0 [...] tab, PO, l tablet 20:27: Daily, # [place] 00 90 tab, 1 Refill(s) Metoprolol 2020-0 [...] tab, PO, l tablet 20:27: Daily, # [place] 00 90 tab, 1 Refill(s) Metoprolol Yes [...] tab, PO, l tablet 20:27: Daily, # [place] 00 90 tab, 1 Refill(s) Metoprolol Yes [...] Intra-op water for Yes PRN, Univers irrigation 08 Starting ity o f irrigation 17:29: Krystle [...] Intra-op EPINEPHrine Yes PRN, Univer s (PF) 08 Starting ity of 1:1,000 (1 17:26: Krystle [...] Units ity of (HUMALOG 14:34: under the [facility] DESTIN 02 skin 3 Medical KWIKPEN (three) Branch U-100) 100 times unit/mL daily. inph Insulin Yes 45U inject 45 Unive rs Glargine 4-08 Units ity of (LANTUS 14:34: [facility] (two) Branch INSULIN) times 100 unit/mL daily. (3 mL) injection amLODIPine Yes 10mg Take 10 mg U nivers 10 mg 4-08 by mouth ity of tablet 14:34: daily. [place] [facility] buPROPion Yes 150mg Take 150 [...] 4-08 by mouth ity of 14:34: daily. [place] [facility] metoprolol Yes 50mg Take 50 mg U nivers succinate 4-08 by mouth 2 ity of XL 50 mg 24 14:34: (two) [place] hr tablet 02 times Medical daily. Branch pantoprazol Yes 40mg Take 40 mg Univers e 40 mg EC 4-08 by mouth ity o f tablet 14:34: daily. [address] Branch Levothyroxi Yes 150ug Take 150 U nivers ne 100 mcg 4-08 mcg by ity of capsule 14:34: mouth daily. Medical Branch aspirin 325 Yes 325mg Take 325 U nivers mg tablet 4-08 mg by ity of 14:34: mouth daily. Medical Branch Cholecalcif Yes Take by Uni vers daryl, 4-08 mouth. ity of Vitamin D3, 14:34: [place] (VITAMIN [facility] D3) 25 mcg [place] (1,000 unit) capsule folic Yes Take by [...] 1,000 mL 00 :00 IV Medical Infusion, [place] ONCE, 1 dose, Krystle 10/14/20 at 0745, Routine, DSU Pre-op insulin Yes 30U inject 30 Unive rs lispro 4-08 Units ity of (HUMALOG 09:34: under the [facility] DESTIN 02 skin 3 Medical KWIKPEN (three) Branch U-100) 100 times unit/mL daily. inph Insulin Yes 45U inject 45 Unive rs Glargine 4-08 Units ity of (LANTUS 09:34: under the [place] SOLOSTAR 02 skin 2 Medical U-100 (two) Branch INSULIN) times 100 unit/mL daily. (3 mL) injection amLODIPine Yes 10mg Take 10 mg U nivers 10 mg 4-08 by mouth ity of tablet 09:34: daily. [place] [address] Medical Branch buPROPion Yes 150mg Take 150 [...] 4-08 by mouth ity of 09:34: daily. [place] [facility] metoprolol Yes 50mg Take 50 mg U nivers succinate 4-08 by mouth 2 ity of XL 50 mg 24 09:34: (two) [place] hr tablet 02 times Medical daily. Branch pantoprazol Yes 40mg Take 40 mg Univers e 40 mg EC 4-08 by mouth ity o f tablet 09:34: daily. [place] [address] Medical Branch Levothyroxi Yes 150ug Take 150 U nivers ne 100 mcg 4-08 mcg by ity of capsule 09:34: mouth [place] 02 daily. Medical Branch aspirin 325 Yes 325mg Take 325 U nivers mg tablet 4-08 mg by ity of 09:34: mouth 02 daily. Medical Branch Cholecalcif Yes Take by Uni vers daryl, 4-08 mouth. ity of Vitamin D3, 09:34: [place] (VITAMIN [address] [place] [address] D3) 25 mcg Branch (1,000 unit) capsule folic Yes Take by Univers acid/multiv 4-08 mouth ity of it-min/lute 09:34: [place] (CENTRUM 02 Medical SILVER Branch ORAL) insulin 2020- Yes 30U [id number] Inject 30 Methodi lispro 1-[id number] (HumaLOG 00:00: 3D [facility] U-100 00 skin 3 l Insulin) (three) 100 unit/mL times a injection day before meals. insulin 2020-1 Yes 30U [id number] Inject 30 Methodi lispro 1-[id number] (HumaLOG 00:00: 3D under the [facility] U-100 00 skin 3 l Insulin) (three) 100 unit/mL times a injection day before meals. insulin 2020- Yes 30U [id number] Inject 30 Methodi lispro 1-[id number] (HumaLOG 00:00: 3D under the [facility] U-100 00 skin 3 l Insulin) (three) 100 unit/mL times a injection day before meals. insulin 2020- Yes 30U [id number] Inject 30 Methodi lispro 1-[id number] (HumaLOG 00:00: 3D under the [facility] U-100 00 skin 3 l Insulin) (three) 100 unit/mL times a injection day before meals. insulin 2020- Yes 30U [id number] Inject 30 Methodi lispro 1-[id number] (HumaLOG 00:00: 3D under the [facility] U-100 00 skin 3 l Insulin) (three) 100 unit/mL times a injection day before meals. insulin 2020- Yes 30U [id number] Inject 30 Methodi lispro 1-[id number] (HumaLOG 00:00: 3D under the [facility] U-100 00 skin 3 l Insulin) (three) 100 unit/mL times a injection day before meals. insulin 2020- Yes 30U [id number] Inject 30 Methodi lispro 1-[id number] (HumaLOG 00:00: 3D under the [facility] U-100 00 skin 3 l Insulin) (three) 100 unit/mL times a injection day before meals. insulin 2020- Yes 30U [id number] Inject 30 Methodi lispro 1-[id number] (HumaLOG 00:00: 3D under the [facility] U-100 00 skin 3 l Insulin) (three) 100 unit/mL times a injection day before meals. insulin 2020- Yes 30U [id number] Inject 30 Methodi lispro 1-[id number] (HumaLOG 00:00: 3D under the [facility] U-100 00 skin 3 l Insulin) (three) 100 unit/mL times a injection day before meals. insulin 2020- Yes 30U [id number] Inject 30 Methodi lispro 1-[id number] (HumaLOG 00:00: 3D under the [facility] U-100 00 skin 3 l Insulin) (three) 100 unit/mL times a injection day before meals. insulin 2020-1 Yes 30U [id number] Inject 30 Methodi lispro 1-[id number] (HumaLOG 00:00: 3D under the [facility] U-100 00 skin 3 l Insulin) (three) 100 unit/mL times a injection day before meals. insulin 2020-1 Yes 30U [id number] Inject 30 Methodi lispro 1-[id number] (HumaLOG 00:00: 3D under the [facility] U-100 00 skin 3 l Insulin) (three) 100 unit/mL times a injection day before meals. insulin 2020-1 Yes 30U [id number] Inject 30 Methodi lispro 1-[id number] (HumaLOG 00:00: 3D under the [facility] U-100 00 skin 3 l Insulin) (three) 100 unit/mL times a injection day before meals. insulin 2020-1 Yes 30U [id number] Inject 30 Methodi lispro 1-[id number] (HumaLOG 00:00: 3D under the [facility] U-100 00 skin 3 l Insulin) (three) 100 unit/mL times a injection day before meals. insulin 2020-1 Yes 30U [id number] Inject 30 Methodi lispro 1-[id number] (HumaLOG 00:00: 3D under the [facility] U-100 00 skin 3 l Insulin) (three) 100 unit/mL times a injection day before meals. insulin 2020-1 Yes 30U [id number] Inject 30 Methodi lispro 1-[id number] (HumaLOG 00:00: 3D under the [facility] U-100 00 skin 3 l Insulin) (three) 100 unit/mL times a injection day before meals. insulin 2020-1 Yes 30U [id number] Inject 30 Methodi lispro 1-[id number] (HumaLOG 00:00: 3D under the [facility] U-100 00 skin 3 l Insulin) (three) 100 unit/mL times a injection day before meals. insulin 2020-0 Yes 30U inject 30 Unive rs lispro 9-24 Units ity of (HUMALOG 16:37: under the [facility] s DESTIN 58 skin 3 Medical KWIKPEN (three) Branch U-100) 100 times unit/mL daily. inph Insulin 2020-0 Yes 45U inject 45 Unive rs Glargine 9-24 Units ity of (LANTUS 16:37: under the [place] SOLOSTAR 58 skin 2 Medical U-100 (two) Branch INSULIN) times 100 unit/mL daily. (3 mL) injection amLODIPine 2020-0 Yes 10mg Take 10 mg U nivers 10 mg 9-24 by mouth ity of tablet 16:37: daily. [place] [address] Medical Branch buPROPion 2020-0 Yes 150mg Take [...] by mouth ity of tablet 16:37: daily. [place] [address] Medical Branch metoprolol 2020-0 Yes 50mg Take 50 mg U nivers succinate 9-24 by mouth 2 ity of XL 50 mg 24 16:37: (two) [place] hr tablet 58 times Medical daily. Branch pantoprazol 2020-0 Yes 40mg Take 40 mg Univers e 40 mg EC 9-24 by mouth ity o f tablet 16:37: daily. [place] [address] Medical Branch Levothyroxi 2020-0 Yes 150ug Take [...] 9-24 mouth. ity of Vitamin D3, 16:37: [place] (VITAMIN [address] [place] [address] D3) 25 mcg Branch (1,000 unit) capsule folic 2020-0 Yes Take by Univers acid/multiv 9-24 mouth ity of it-min/lute 16:37: daily. [place] in (CENTRUM 58 Medical SILVER Branch ORAL) insulin 2020-0 Yes 30U inject 30 Unive rs lispro 9-24 Units ity of (HUMALOG 16:37: under the [facility] s DESTIN 58 skin 3 Medical KWIKPEN (three) Branch U-100) 100 times unit/mL daily. inph Insulin 2020-0 Yes 45U inject 45 Unive rs Glargine 9-24 Units ity of (LANTUS 16:37: under the [place] SOLOSTAR 58 skin 2 Medical U-100 (two) Branch INSULIN) times 100 unit/mL daily. (3 mL) injection amLODIPine 2020-0 Yes 10mg Take 10 mg U nivers 10 mg 9-24 by mouth ity of tablet 16:37: daily. [place] [address] Medical Branch buPROPion 2020-0 Yes 150mg Take [...] by mouth ity of tablet 16:37: daily. [place] [address] Medical Branch metoprolol 2020-0 Yes 50mg Take 50 mg U nivers succinate 9-24 by mouth 2 ity of XL 50 mg 24 16:37: (two) [place] hr tablet 58 times Medical daily. Branch pantoprazol 2020-0 Yes 40mg Take 40 mg Univers e 40 mg EC 9-24 by mouth ity o f tablet 16:37: daily. [place] [address] Medical Branch Levothyroxi 2020-0 Yes 150ug Take [...] 9-24 mouth. ity of Vitamin D3, 16:37: [place] (VITAMIN [address] [place] [address] D3) 25 mcg Branch (1,000 unit) capsule [...] Units ity of (LANTUS 16:37: under the [place] SOLOSTAR 58 skin 2 Medical U-100 (two) Branch INSULIN) times 100 unit/mL daily. (3 mL) injection amLODIPine 2020-0 Yes 10mg Take 10 mg U nivers 10 mg 9-24 by mouth ity of tablet 16:37: daily. [place] [address] Medical Branch buPROPion 2020-0 Yes 150mg Take [...] by mouth ity of tablet 16:37: daily. [place] [address] Medical Branch metoprolol 2020-0 Yes 50mg Take 50 mg U nivers succinate 9-24 by mouth 2 ity of XL 50 mg 24 16:37: (two) [place] hr tablet 58 times Medical daily. Branch pantoprazol 2020-0 Yes 40mg Take 40 mg Univers e 40 mg EC 9-24 by mouth ity o f tablet 16:37: daily. [place] [address] Medical Branch Levothyroxi 2020-0 Yes 150ug Take [...] 9-24 mouth. ity of Vitamin D3, 16:37: [place] (VITAMIN [address] [place] [address] D3) 25 mcg [place] (1,000 unit) capsule folic 2020-0 Yes Take by Univers acid/multiv 9-24 mouth ity of it-min/lute 16:37: daily. [place] in (CENTRUM 58 Medical SILVER Branch ORAL) insulin 2020-0 Yes 30U inject 30 Unive rs lispro 9-24 Units ity of (HUMALOG 16:37: under the [facility] s DESTIN 58 skin 3 Medical KWIKPEN (three) Branch U-100) 100 times unit/mL daily. inph Insulin 2020-0 Yes 45U inject 45 Unive rs Glargine 9-24 Units ity of (LANTUS 16:37: under the [place] SOLOSTAR 58 skin 2 Medical U-100 (two) Branch INSULIN) times 100 unit/mL daily. (3 mL) injection amLODIPine 2020-0 Yes 10mg Take 10 mg U nivers 10 mg 9-24 by mouth ity of tablet 16:37: daily. [place] [address] Medical Branch buPROPion 2020-0 Yes 150mg Take [...] by mouth ity of tablet 16:37: daily. [place] [address] Medical Branch metoprolol 2020-0 Yes 50mg Take 50 mg U nivers succinate 9-24 by mouth 2 ity of XL 50 mg 24 16:37: (two) [place] hr tablet 58 times Medical daily. Branch pantoprazol 2020-0 Yes 40mg Take 40 mg Univers e 40 mg EC 9-24 by mouth ity o f tablet 16:37: daily. [place] [address] Medical Branch Levothyroxi 2020-0 Yes 150ug Take [...] 9-24 mouth. ity of Vitamin D3, 16:37: [place] (VITAMIN [address] [place] [address] D3) 25 mcg Branch (1,000 unit) capsule folic 2020-0 Yes Take by Univers acid/multiv 9-24 mouth ity of it-min/lute 16:37: daily. [place] in (CENTRUM 58 Medical SILVER Branch ORAL) insulin 2020-0 Yes 30U inject 30 Unive rs lispro 9-24 Units ity of (HUMALOG 13:50: under the [facility] s DESTIN 18 skin 3 Medical KWIKPEN (three) Branch U-100) 100 times unit/mL daily. inph Insulin 2020-0 Yes 45U inject 45 Unive rs Glargine 9-24 Units ity of (LANTUS 13:50: under the [place] SOLOSTAR 18 skin 2 Medical U-100 (two) Branch INSULIN) times 100 unit/mL daily. (3 mL) injection amLODIPine 2020-0 Yes 10mg Take 10 mg U nivers 10 mg 9-24 by mouth ity of tablet 13:50: daily. [place] [address] Medical Branch buPROPion 2020-0 Yes 150mg Take [...] by mouth ity of tablet 13:50: daily. [place] [address] Medical Branch metoprolol 2020-0 Yes 50mg Take 50 mg U nivers succinate 9-24 by mouth 2 ity of XL 50 mg 24 13:50: (two) [place] hr tablet 18 times Medical daily. Branch pantoprazol 2020-0 Yes 40mg Take 40 mg Univers e 40 mg EC 9-24 by mouth ity o f tablet 13:50: daily. [place] [address] Medical Branch Levothyroxi 2020-0 Yes 150ug Take [...] 9-24 mouth. ity of Vitamin D3, 13:50: [place] (VITAMIN [address] [place] [address] D3) 25 mcg Branch (1,000 unit) capsule folic 2020-0 Yes Take by Univers acid/multiv 9-24 mouth ity of it-min/lute 13:50: daily. [place] in (CENTRUM 18 Medical SILVER Branch ORAL) insulin 2020-0 Yes 30U inject 30 Unive rs lispro 9-24 Units ity of (HUMALOG 13:50: under the [facility] s DESTIN 18 skin 3 Medical KWIKPEN (three) Branch U-100) 100 times unit/mL daily. inph Insulin 2020-0 Yes 45U inject 45 Unive rs Glargine 9-24 Units ity of (LANTUS 13:50: under the [place] SOLOSTAR 18 skin 2 Medical U-100 (two) Branch INSULIN) times 100 unit/mL daily. (3 mL) injection amLODIPine 2020-0 Yes 10mg Take 10 mg U nivers 10 mg 9-24 by mouth ity of tablet 13:50: daily. [place] [address] Medical Branch buPROPion 2020-0 Yes 150mg Take [...] by mouth ity of tablet 13:50: daily. [place] [address] Medical Branch metoprolol 2020-0 Yes 50mg Take 50 mg U nivers succinate 9-24 by mouth 2 ity of XL 50 mg 24 13:50: (two) [place] hr tablet 18 times Medical daily. Branch pantoprazol 2020-0 Yes 40mg Take 40 mg Univers e 40 mg EC 9-24 by mouth ity o f tablet 13:50: daily. [place] [address] Medical Branch Levothyroxi 2020-0 Yes 150ug Take [...] 9-24 mouth. ity of Vitamin D3, 13:50: [place] (VITAMIN [address] [place] [address] D3) 25 mcg Branch (1,000 unit) capsule [...] 13:02: 13:33 INTRA [place] 00 :17 PROCEDURE, [facility] 04/01/20 at 0802, Until [facility] 04/01/20 at 0833, Routine, Intra-op lactated 2020-0 2020- No IV Univers ringers IV 04-01 Infusion, ity of infusion 13:01: 13:33 [place]UOUS [place] 00 :17 PRN, [facility] 04/01/20 at 0801, Until [facility] 04/01/20 at 0833, Routine, Intra-op lactated 2020-0 2020- No IV Univers ringers IV 04-01 Infusion, ity of infusion 13:01: 13:33 [place] 00 :17 PRN, [facility] 04/01/20 at 0801, Until [facility] 04/01/20 at 0833, Routine, Intra-op tetracaine 2020-0 Yes PRN, Univers (PONTOCAINE 04-01 Starting ity of ) 0.5 % 12:53: Krystle [place] ophthalmic 04/01/[address] [facility] ica drops [address] [place] [address] Until Discontinu ed, Routine, Intra-op water for 2020-0 Yes PRN, Univers irrigation 04-01 Starting ity o f irrigation 12:53: Krystle [place] solution 04/01/[address] Until Discontinu ed, Routine, Intra-op NaCl 0.9% 2020-0 Yes PRN, Univers (NS) 04-01 Starting ity of injection 12:52: Krystle [place] 04/01/[address] Until Discontinu ed, Routine, Intra-op neomycin-po 2020-0 Yes PRN, Univer s lymyxin-dex 04-01 Starting ity of amethasone 12:52: Krystle [place] (MAXITROL) 04/01/20 at [facility] [address] [place] [address] mg/g-10,000 Until unit/g-0.1 Discontinu % ed, ophthalmic Routine, ointment Intra-op gentamicin 2020-0 Yes PRN, Univers injection 04-01 Starting ity of 12:52: Krystle [place] 04/01/[address] Until Discontinu ed, VIOLETTA, Intra-op eye block 2020-0 Yes PRN, Univers syringe 11 04-01 Starting ity o f mL 12:51: Krystle [place] 04/01/[address] [facility] 0751, [place] Until Discontinu ed, Intra-op EPINEPHrine 2020-0 Yes PRN, Univer s (PF) 04-01 Starting ity of 1:1,000 (1 12:51: Krystle [place] mg/mL) 04/01/[address] [facility] (ADRENALIN 0751, Branch (PF)) Until injection Discontinu ed, Routine, Intra-op DUOVISC 2020-0 Yes PRN, Univers (DUOVISC 04-01 Starting ity of VISCO 12:51: Krystle [place] ELASTIC) 3 04/01/[address] [facility] ical %-4 %(0.5 075, [place] mL) 1 % Until (0.55 mL) Discontinu intraocular ed, injection Routine, Intra-op dexamethaso 2020-0 Yes PRN, Univer s ne 04-01 Starting ity of (DECADRON 12:50: Krystle [place] PHOSPHATE) 04/01/[address] [facility] ical injection 0750, [place] Until Discontinu ed, Routine, Intra-op ceFAZolin 2020-0 Yes PRN, Univers (ANCEF) 04-01 Starting ity of injection 12:50: Krystle [place] 04/01/[address] [facility] 0750, [place] Until Discontinu ed, VIOLETTA, Intra-op balanced 2020-0 Yes PRN, Univers salt soln 04-01 Starting ity of no.2 irrig. 12:49: Krystle [place] (BSS) 04/01/[address] [facility] ophthalmic 0749, [place] solution Until Discontinu ed, Routine, Intra-op lactated 2020-0 2020- No 1000mL at 20 Unive rs ringers IV 04-01 mL/hr, ity of infusion 12:00: 12:17 1,000 mL, [place] 1,000 mL 00 :00 IV Medical Infusion, [place] ONCE, 1 dose, Krystle 04/01/20 at 0700, [...] 100 UNIT/ML 100 UNIT/ML Immunizations Ordered Filled Date Status Comments Source Immunization Name Immunization Name ARIADNE COVID-19 2021-07-27 Completed [facility] VACCINATION 00:00:00 [facility] PFIZER COVID-19 2021-07-27 Completed [facility] VACCINATION 00:00:00 [facility] PFIZER COVID-19 2021-07-27 Completed [facility] M[facility] VACCINATION 00:00:00 [facility] PFIZER COVID-19 2021-07-27 Completed [facility]RNA VACCINATION 00:00:00 [facility] PFIZER COVID-19 2021-07-27 Completed [facility] VACCINATION 00:00:00 [facility] PFIZER COVID-19 2021-07-27 Completed [facility]RNA VACCINATION 00:00:00 [facility] PFIZER COVID-19 2021-07-27 Completed [facility] MRNA VACCINATION 00:00:00 [facility] PFIZER COVID-19 2021-07-27 Completed [facility] MRNA VACCINATION 00:00:00 [facility] PFIZER COVID-19 2021-07-27 Completed [facility]RNA VACCINATION 00:00:00 [facility] PFIZER COVID-19 2021-07-27 Completed [facility] MRNA VACCINATION 00:00:00 [facility] PFIZER COVID-19 2021-07-27 Completed [facility] MRNA VACCINATION 00:00:00 [facility] PFIZER COVID-19 2021-07-27 Completed [facility] MRNA VACCINATION 00:00:00 [facility] SARS-COV-2 COVID-19 2021-07-27 Completed Unive rsity of PFIZER VACCINE 00:00:00 [facility] SARS-COV-2 COVID-19 2021-07-27 Completed Unive rsity of PFIZER VACCINE 00:00:00 [facility] SARS-COV-2 COVID-19 2021-07-27 Completed Unive rsity of PFIZER VACCINE 00:00:00 [facility] SARS-COV-2 COVID-19 2021-07-27 Completed Unive rsity of PFIZER VACCINE 00:00:00 [facility] SARS-COV-2 COVID-19 2021-07-27 Completed Unive rsity of PFIZER VACCINE 00:00:00 [facility] Influenza Virus 2021-04-20 Completed Universit y of Vaccine 00:00:00 [facility] Influenza Virus 2021-04-20 Completed Universit y of Vaccine 00:00:00 [facility] Influenza Virus 2021-04-20 Completed Universit y of Vaccine 00:00:00 [facility] Influenza Virus 2021-04-20 Completed Universit y of Vaccine 00:00:00 [facility] Influenza Virus 2021-04-20 Completed Universit y of Vaccine 00:00:00 [facility] PFIZER COVID-19 2021-02-25 Completed [facility] VACCINATION 00:00:00 [facility] PFIZER COVID-19 2021-02-25 Completed [facility] MRNA VACCINATION 00:00:00 [facility] PFIZER COVID-19 2021-02-25 Completed [facility] VACCINATION 00:00:00 [facility] PFIZER COVID-19 2021-02-25 Completed [facility] VACCINATION 00:00:00 [facility] PFIZER COVID-19 2021-02-25 Completed [facility] MRNA VACCINATION 00:00:00 [facility] PFIZER COVID-19 2021-02-25 Completed [facility] VACCINATION 00:00:00 Hospital PFIZER COVID-19 2021-02-25 Completed [facility] MRNA VACCINATION 00:00:00 [facility] PFIZER COVID-19 2021-02-25 Completed [facility] MRNA VACCINATION 00:00:00 [facility] PFIZER COVID-19 2021-02-25 Completed [facility] MRNA VACCINATION 00:00:00 [facility] PFIZER COVID-19 2021-02-25 Completed [facility] MRNA VACCINATION 00:00:00 [facility] PFIZER COVID-19 2021-02-25 Completed [facility] MRNA VACCINATION 00:00:00 [facility] PFIZER COVID-19 2021-02-25 Completed [facility] MRNA VACCINATION 00:00:00 [facility] SARS-COV-2 COVID-19 2021-02-25 Completed Unive rsity of PFIZER VACCINE 00:00:00 [facility] SARS-COV-2 COVID-19 2021-02-25 Completed Unive rsity of PFIZER VACCINE 00:00:00 [facility] SARS-COV-2 COVID-19 2021-02-25 Completed Unive rsity of PFIZER VACCINE 00:00:00 [facility] SARS-COV-2 COVID-19 2021-02-25 Completed Unive rsity of PFIZER VACCINE 00:00:00 [place] [facility] [facility] SARS-COV-2 COVID-19 2021-02-25 Completed Unive rsity of PFIZER VACCINE 00:00:00 [facility] PFIZER COVID-19 2021-01-06 Completed [facility] VACCINATION 00:00:00 [facility] PFIZER COVID-19 2021-01-06 Completed [facility]RNA VACCINATION 00:00:00 [facility] PFIZER COVID-19 2021-01-06 Completed [facility] VACCINATION 00:00:00 [facility] PFIZER COVID-19 2021-01-06 Completed [facility] VACCINATION 00:00:00 [facility] PFIZER COVID-19 2021-01-06 Completed [facility] VACCINATION 00:00:00 [facility] PFIZER COVID-19 2021-01-06 Completed [facility]RNA VACCINATION 00:00:00 [facility] PFIZER COVID-19 2021-01-06 Completed [facility] MRNA VACCINATION 00:00:00 [facility] PFIZER COVID-19 2021-01-06 Completed [facility] MRNA VACCINATION 00:00:00 [facility] PFIZER COVID-19 2021-01-06 Completed [facility] VACCINATION 00:00:00 [facility] PFIZER COVID-19 2021-01-06 Completed [facility] VACCINATION 00:00:00 [facility] PFIZER COVID-19 2021-01-06 Completed [facility] VACCINATION 00:00:00 [facility] PFIZER COVID-19 2021-01-06 Completed [facility] MRNA VACCINATION 00:00:00 [facility] SARS-COV-2 COVID-19 2021-01-06 Completed Unive rsity of PFIZER VACCINE 00:00:00 [facility] SARS-COV-2 COVID-19 2021-01-06 Completed Unive rsity of PFIZER VACCINE 00:00:00 [facility] SARS-COV-2 COVID-19 2021-01-06 Completed Unive rsity of PFIZER VACCINE 00:00:00 [facility] SARS-COV-2 COVID-19 2021-01-06 Completed Unive rsity of PFIZER VACCINE 00:00:00 [facility] SARS-COV-2 COVID-19 2021-01-06 Completed Unive rsity of PFIZER VACCINE 00:00:00 [facility] SARS-COV-2 COVID-19 2020-11-03 Completed Unive rsity of VACCINE, BIVALENT 00:00:00 [facility] edical 0.2ML, PFIZER, Branch 6MO-4YRS, IM SARS-COV-2 [...] Polysaccharide, 00:00:00 [place] [facility] PPSV23 (PNEUMOVAX) [place] Pneumococcal 2019-12-05 Completed University o f Polysaccharide, 00:00:00 [facility] ical PPSV23 (PNEUMOVAX) Branch Pneumococcal 2019-12-05 Completed University o f Polysaccharide, 00:00:00 [facility] ical PPSV23 (PNEUMOVAX) Branch TDAP 2019-08-19 Completed University of 00:00:00 [facility] TDAP 2019-08-19 Completed University of 00:00:00 [facility] TDAP 2019-08-19 Completed University of 00:00:00 [facility] TDAP 2019-08-19 Completed University of 00:00:00 [facility] TDAP 2019-08-19 Completed University of 00:00:00 [facility] Flu Trivalent 2019-04-28 Completed University of 00:00:00 [facility] Influenza Virus 2019-04-28 Completed Universit y of Vaccine Quad IM 3+ 00:00:00 [facility] Flu Trivalent 2019-04-28 Completed University of 00:00:00 [facility] Influenza Virus 2019-04-28 Completed Universit y of Vaccine Quad IM 3+ 00:00:00 [facility] Flu Trivalent 2019-04-28 Completed University of 00:00:00 [facility] Influenza Virus 2019-04-28 Completed Universit y of Vaccine Quad IM 3+ 00:00:00 [facility] Flu Trivalent 2019-04-28 Completed University of 00:00:00 [facility] Influenza Virus 2019-04-28 Completed Universit y of Vaccine Quad IM 3+ 00:00:00 [facility] Flu Trivalent 2019-04-28 Completed University of 00:00:00 [facility] Influenza Virus 2019-04-28 Completed Universit y of Vaccine Quad IM 3+ 00:00:00 [facility] Flu Trivalent 2018-03-18 Completed University of 00:00:00 [facility] Flu Trivalent 2018-03-18 Completed University of 00:00:00 [facility] Flu Trivalent 2018-03-18 Completed University of 00:00:00 [facility] Flu Trivalent 2018-03-18 Completed University of 00:00:00 [facility] Flu Trivalent 2018-03-18 Completed University of 00:00:00 [facility] Flu Split Virus, 2017-04-26 Completed Universi ty of PSA 00:00:00 [facility] Flu Split Virus, 2017-04-26 Completed Universi ty of PSA 00:00:00 [facility] Flu Split Virus, 2017-04-26 Completed Universi ty of PSA 00:00:00 [facility] Flu Split Virus, 2017-04-26 Completed Universi ty of PSA 00:00:00 [facility] Flu Split Virus, 2017-04-26 Completed Universi ty of PSA 00:00:00 [facility] Flu Split Virus, 2016-05-01 Completed Universi ty of PSA 00:00:00 [facility] Flu Split Virus, 2016-05-01 Completed Universi ty of PSA 00:00:00 [facility] Flu Split Virus, 2016-05-01 Completed Universi ty of PSA 00:00:00 [facility] Flu Split Virus, 2016-05-01 Completed Universi ty of PSA 00:00:00 [facility] Flu Split Virus, 2016-05-01 Completed Universi ty of PSA 00:00:00 [facility] Flu Split Virus, 2015-04-29 Completed Universi ty of PSA 00:00:00 [facility] Flu Split Virus, 2015-04-29 Completed Universi ty of PSA 00:00:00 [facility] Flu Split Virus, 2015-04-29 Completed Universi ty of PSA 00:00:00 [facility] Flu Split Virus, 2015-04-29 Completed Universi ty of PSA 00:00:00 [facility] Flu Split Virus, 2015-04-29 Completed Universi ty of PSA 00:00:00 [facility] Pneumococcal 2012-05-03 Completed University o f Polysaccharide, 00:00:00 [place] [facility] PPSV23 (PNEUMOVAX) Branch Pneumococcal 2012-05-03 Completed University o f Polysaccharide, 00:00:00 [place] [facility] PPSV23 (PNEUMOVAX) Branch Pneumococcal 2012-05-03 Completed University o f Polysaccharide, 00:00:00 [place] [facility] PPSV23 (PNEUMOVAX) Branch Pneumococcal 2012-05-03 Completed University o f Polysaccharide, 00:00:00 [place] [facility] PPSV23 (PNEUMOVAX) Branch Pneumococcal 2012-05-03 Completed University o f Polysaccharide, 00:00:00 [place] [facility] PPSV23 (PNEUMOVAX) Branch TDAP 2009-09-06 Completed University of 00:00:00 [facility] TDAP 2009-09-06 Completed University of 00:00:00 [facility] TDAP 2009-09-06 Completed University of 00:00:00 [facility] TDAP 2009-09-06 Completed University of 00:00:00 [facility] TDAP 2009-09-06 Completed University of 00:00:00 [facility] Pneumococcal 2008-07-09 Completed University o f Polysaccharide, [...] 00:00:00 [place] [facility] PPSV23 (PNEUMOVAX) Branch PFIZER COVID-19 Unknown Completed [facility] PFIZER COVID-19 Unknown Com[facility] PFIZER COVID-19 Unknown Completed [facility] PFIZER COVID-19 Unknown Completed [facility] PFIZER COVID-19 Unknown Completed [facility] PFIZER COVID-19 Unknown Completed [facility] PFIZER COVID-19 Unknown Completed [facility] PFIZER COVID-19 Unknown Completed [facility] PFIZER COVID-19 Unknown Completed [facility] PFIZER COVID-19 Unknown Completed [facility] PFIZER COVID-19 Unknown Completed [facility] PFIZER COVID-19 Unknown Completed [facility] SARS-COV-2 COVID-19 Unknown Completed Unive rsity of VACCINE, BIVALENT [place] [facility] 0.2ML, PFIZER, Branch 6MO-4YRS, IM SARS-COV-2 COVID-19 Unknown Completed Unive rsity of VACCINE, BIVALENT [place] [facility] 0.2ML, PFIZER, Branch 6MO-4YRS, IM SARS-COV-2 COVID-19 Unknown Completed Unive rsity of PFIZER VACCINE [facility] SARS-COV-2 COVID-19 Unknown Completed Unive rsity of PFIZER VACCINE [facility] SARS-COV-2 COVID-19 Unknown Completed Unive rsity of PFIZER VACCINE [facility] Pneumococcal Unknown Completed [place] o f Polysaccharide, [place] [facility] PPSV23 (PNEUMOVAX) Branch Pneumococcal Unknown Completed University o f Polysaccharide, [place] [facility] PPSV23 (PNEUMOVAX) Branch Pneumococcal Unknown Completed University o f Polysaccharide, [place] [facility] PPSV23 (PNEUMOVAX) Branch Flu Trivalent Unknown Completed [facility] Flu Trivalent Unknown Completed [facility] Influenza Virus Unknown Completed Universit y of Vaccine Quad IM 3+ [facility] Flu Split Virus, Unknown Completed Universi ty of [facility] Flu Split Virus, Unknown Completed Universi ty of [facility] Flu Split Virus, Unknown Completed Universi ty of [facility] Influenza Virus Unknown Completed Universit y of Vaccine [facility] TDAP Unknown Completed [facility] TDAP Unknown Completed [facility] PFIZER COVID-19 Unknown Completed [facility] PFIZER COVID-19 Unknown Completed [facility] PFIZER COVID-19 Unknown Completed [facility] Vital Signs Vital Name [...] 2022-12-22 22:25:00 137 mm[Hg] Univer sity of [facility] Diastolic blood 2022-12-22 22:25:00 73 mm[Hg] Unive rsity of [facility] Heart rate 2022-12-22 22:25:00 103 /min [facility] Oxygen saturation in 2022-12-22 22:25:00 98 /min [facility] Arterial blood by [facility] Pulse oximetry Branch Respiratory rate 2022-12-22 21:00:00 13 /min [facility] Body temperature 2022-12-22 17:00:00 36.11 Katharina [facility] Body weight 2022-12-22 17:00:00 76.5 kg [facility] BMI 2022-12-22 17:00:00 27.22 kg/m2 [facility] Body height 2022-12-15 03:29:00 167.6 cm [facility] Body temperature 2022-12-21 20:00:00 36.33 [facility]ina [facility] Systolic blood 2022-12-21 17:00:00 130 mm[Hg] Univer sity of [facility] Diastolic blood 2022-12-21 17:00:00 71 mm[Hg] Unive rsity of [facility] Heart rate 2022-12-21 17:00:00 85 [facility] 2022-12-21 17:00:00 12 /min [facility] Oxygen saturation in 2022-12-21 17:00:00 100 /min University of Arterial blood by [facility] jose Pulse oximetry Branch Body weight 2022-12-21 11:04:00 80.468 kg Universi ty of [facility] BMI 2022-12-21 11:04:00 27.22 kg/m2 Universi ty [facility] Body height 2022-12-15 03:29:00 167.6 cm Universi ty of [facility] Systolic blood 2022-11-07 20:23:00 130 mm[Hg] Univer sity of pressure [facility] Diastolic blood 2022-11-07 20:23:00 58 mm[Hg] Unive rsity of pressure [facility] Heart rate 2022-11-07 20:23:00 62 /min Universi ty [facility] Body temperature 2022-11-07 20:23:00 36.11 Katharina Univ ersity [facility] Respiratory rate 2022-11-07 20:23:00 17 /min [facility] Oxygen saturation in 2022-11-07 20:23:00 100 /min University of Arterial blood by [facility] Pulse oximetry Branch Body weight 2022-11-06 17:09:00 74 kg Universi ty of [facility] BMI 2022-11-06 17:09:00 26.33 kg/m2 Universi ty [facility] Body height 2022-11-04 22:57:00 167.6 cm Universi ty [facility] height 2022-08-15 10:20:00 66.0 [in_i] Common [facility] weight 2022-08-15 10:20:00 224.4 [lb_av] Common [facility] temperature 2022-08-15 10:20:00 97.0 [degF] Common [facility] bmi 2022-08-15 10:20:00 36.22 kg/m2 [facility] oximetry 2022-08-15 10:20:00 96 % [facility] respiratory rate 2022-08-15 10:20:00 17 /min [facility] blood pressure 2022-08-15 10:20:00 131 mm[Hg] [facility] blood pressure 2022-08-15 10:20:00 72 mm[Hg] [facility] height 2022-07-26 10:00:00 66.0 [in_i] [facility] weight 2022-07-26 10:00:00 232.0 [lb_av] Common [facility] temperature 2022-07-26 10:00:00 97.3 [degF] Common S pirit [facility] bmi 2022-07-26 10:00:00 37.44 kg/m2 Common [facility] oximetry 2022-07-26 10:00:00 96 % Common [facility] respiratory rate 2022-07-26 10:00:00 17 /min [facility] blood pressure 2022-07-26 10:00:00 138 mm[Hg] [facility] blood pressure 2022-07-26 10:00:00 72 mm[Hg] [facility] height 2022-02-27 11:20:00 66.0 [in_i] [facility] weight 2022-02-27 11:20:00 236.6 [lb_av] Common [facility] temperature 2022-02-27 11:20:00 97.2 [degF] Common S pirit [facility] bmi 2022-02-27 11:20:00 38.18 kg/m2 Common S [facility] oximetry 2022-02-27 11:20:00 94 % Common [facility] respiratory rate 2022-02-27 11:20:00 16 /min [facility] blood pressure 2022-02-27 11:20:00 138 mm[Hg] [facility] blood pressure 2022-02-27 11:20:00 76 mm[Hg] [facility] height 2022-02-27 11:00:00 66.0 [in_i] [facility] weight 2022-02-27 11:00:00 236.6 [lb_av] [facility] temperature 2022-02-27 11:00:00 97.2 [degF] [facility] bmi 2022-02-27 11:00:00 38.18 kg/m2 [facility] oximetry 2022-02-27 11:00:00 93 % [facility] respiratory rate 2022-02-27 11:00:00 16 /min [facility] blood pressure 2022-02-27 11:00:00 138 mm[Hg] [facility] systolic [facility] blood pressure 2022-02-27 11:00:00 76 mm[Hg] [facility] diastolic [facility] Systolic blood 2020-10-14 14:10:00 120 mm[Hg] Univer sity of [facility] Diastolic blood 2020-10-14 14:10:00 65 mm[Hg] Unive rsity of [facility] Heart rate 2020-10-14 14:10:00 81 /min [facility] Body temperature 2020-10-14 14:10:00 36.06 [facility] Respiratory rate 2020-10-14 14:10:00 13 /min [facility] Oxygen saturation in 2020-10-14 14:10:00 99 /min [facility] Arterial blood by [facility] Pulse oximetry Branch Body height 2020-10-01 18:42:00 167.6 cm [facility] Body weight 2020-10-01 18:42:00 108.4 kg [facility] BMI 2020-10-01 18:42:00 38.59 kg/m2 [facility] Systolic blood 2020-10-14 14:10:00 120 mm[Hg] Univer sity of [facility] Diastolic blood 2020-10-14 14:10:00 65 mm[Hg] Unive rsity of pressure [facility] Heart rate 2020-10-14 14:10:00 81 /min Universi ty [facility] Body temperature 2020-10-14 14:10:00 36.06 Katharina Univ ersity of [facility] Respiratory rate 2020-10-14 14:10:00 13 /min Univ ersity of [place] [facility] Oxygen saturation in 2020-10-14 14:10:00 99 /min University of Arterial blood by [facility] Pulse oximetry Branch Body height 2020-10-01 18:42:00 167.6 cm Universi ty [facility] Body weight 2020-10-01 18:42:00 108.4 kg [facility] BMI 2020-10-01 18:42:00 38.59 kg/m2 [facility] ty [facility] Systolic blood 2020-04-01 13:55:00 113 mm[Hg] Univer sity of pressure [facility] Diastolic blood 2020-04-01 13:55:00 56 mm[Hg] Unive rsity of pressure [facility] Heart rate 2020-04-01 13:55:00 63 /min Universi ty of [facility] Body temperature 2020-04-01 13:55:00 36.11 Katharina Univ ersity of [facility] Oxygen saturation in 2020-04-01 13:50:00 100 /min University of Arterial blood by [facility] Pulse oximetry Branch Respiratory rate 2020-04-01 13:45:00 18 /min Univ ers[facility] [place] [facility] Body height 2020-03-30 17:15:00 167.6 [...] Oxygen saturation in 2020-04-01 13:50:00 100 /min [facility] Arterial blood by [facility] Pulse oximetry [place] Respiratory rate 2020-04-01 13:45:00 18 /min [facility] Body height 2020-03-30 17:15:00 167.6 cm [facility] Body weight 2020-03-30 17:15:00 108.41 kg [facility] BMI 2020-03-30 17:15:00 38.58 kg/m2 [facility] Respiratory rate 2020-04-01 13:32:00 18 /min [facility] Respiratory rate 2020-04-01 13:32:00 18 /min [facility] Heart rate 2022-04-26 17:30:00 76 /min [facility] Oxygen saturation in 2022-04-26 17:30:00 93 /min [facility] Arterial blood by Pulse oximetry Systolic blood 2022-04-26 17:20:00 139 mm[Hg] [facility] pressure Diastolic blood 2022-04-26 17:20:00 67 mm[Hg] [facility] pressure Respiratory rate 2022-04-26 17:20:00 16 /min [facility] Body temperature 2022-04-26 17:00:00 36.44 Katharina [facility] Body height 2022-04-24 17:06:00 167.6 cm [facility] Body weight 2022-04-24 17:06:00 110.224 kg [facility] BMI 2022-04-24 17:06:00 39.22 kg/m2 [facility] Systolic (mm Hg) 2021-02-23 20:05:00 [place] Diastolic (mm Hg) 2021-02-23 20:05:00 Anita ma Lewis Heart Rate 2021-02-23 20:05:00 Yakov Lewis Respitory Rate 2021-02-23 20:05:00 Sriram Larkin Height 2021-02-23 20:05:00 162.56 cm [facility] Weight 2021-02-23 20:05:00 Yakov Saucedo BMI Calculated 2021-02-23 20:05:00 Sriram Larkin Procedures Procedure Date / Time Performing Source Performed Clinician POCT GLUCOSE (AUTOMATED) 2022-12-22 [facility] 16:44:00 Medical Branch POCT GLUCOSE (AUTOMATED) 2022-12-22 [facility] 16:44:00 Medical Branch POCT GLUCOSE (AUTOMATED) 2022-12-22 [facility] 11:06:00 Medical Branch POCT GLUCOSE (AUTOMATED) 2022-12-22 [facility] 11:06:00 Medical Branch BASIC METABOLIC PANEL (NA, K, 2022-12-22 [facility] [place] CL, CO2, GLUCOSE, BUN, 10:26:00 Medical B ranch CREATININE, CA) CBC WITH DIFF [facility]22-12-22 [facility] 10:[facility] BASIC METABOLIC PANEL (NA, K, 2022-12-22 [facility], CO2, GLUCOSE, BUN, 10:26:00 Medical B ran CREATININE, CA) CBC WITH DIFF 2022-12-[address] [facility] xas 10:26:00 Medical Branch POCT GLUCOSE (AUTOMATED) 2022-12-22 [facility] 05:04:00 Medical Branch POCT GLUCOSE (AUTOMATED) 2022-12-22 [facility] 05:04:00 Medical Branch POCT GLUCOSE (AUTOMATED) 2022-12-21 [facility] 23:16:00 Medical Branch POCT GLUCOSE (AUTOMATED) 2022-12-21 [facility] 23:16:00 Medical Branch XR CHEST 1 VW 2022-12-21 [facility] xas 22:14:57 Medical Branch XR CHEST 1 VW 2022-12-21 [facility] 22:14:57 Medical Branch FL TIME OR (NON-REPORTABLE) 2022-12-21 [facility] 21:41:14 Medical Branch FL TIME OR (NON-REPORTABLE) 2022-12-21 [facility] 21:41:14 Medical Branch [facility]MACATH PLACEMENT [facility]22[facility]12-[facility] 20:31:00 [facility] PERMACATH PLACEMENT [facility]22[facility]12-21 [facility] 20:31:00 Medical Branch POCT GLUCOSE (AUTOMATED) 2022-12-21 Liya [facility] 17:16:00 Medical Branch POCT GLUCOSE (AUTOMATED) 2022-12-21 Liya [facility] 17:16:00 Medical Branch POCT GLUCOSE (AUTOMATED) 2022-12-21 [facility], [facility] 11:08:00 Medical Branch POCT GLUCOSE (AUTOMATED) 2022-12-[address] 11:08:00 Medical Branch POCT GLUCOSE (AUTOMATED) 2022-12-[address] [facility] 05:06:00 Medical Branch POCT GLUCOSE (AUTOMATED) 2022-12-21 Liya [facility] 05:06:00 Medical Branch POCT GLUCOSE (AUTOMATED) 2022-12-[address] [facility] 23:00:00 Medical Branch POCT GLUCOSE (AUTOMATED) 2022-12-[address] 23:00:00 Medical Branch POCT GLUCOSE (AUTOMATED) 2022-12-20 [facility] 16:50:00 Medical Branch POCT GLUCOSE (AUTOMATED) 2022-12-20 [facility] 16:50:00 Medical Branch PHOSPHORUS 2022-12-20 [facility] 09:12[facility]00 Medical Branch MAGNESIUM 2022-12-20 [facility] xas 09:12:00 Medical Branch HEPATIC FUNCTION PANEL 2022-12-20 [facility] ([id number]) (ALB,T.PRO,BILI 09:12:00 Medical Branch T,BU/BC,ALT,AST,ALK PHOS) BASIC METABOLIC PANEL (NA, K, 2022-12-20 [facility] CL, CO2, GLUCOSE, BUN, 09:12:00 Medical B ranch CREATININE, CA) CBC WITH DIFF [facility] 09:12:00 [facility] Branch PHOSPHORUS 2022-12-20 [facility] xas 09:12:00 [facility] Branch MAGNESIUM 2022-12-20 [facility] xas 09:12:00 Medical Branch HEPATIC FUNCTION PANEL 2022-12-20 [facility] ([id number]) (ALB,T.PRO,BILI 09:12:00 Medical Branch T,BU/BC,ALT,AST,ALK PHOS) BASIC METABOLIC PANEL (NA, K, 2022-12-20 [facility] CL, CO2, GLUCOSE, BUN, 09:12:00 Medical ran CREATININE, CA) CBC WITH DIFF 2022-12-20 [facility] xa 09:12:00 [facility] Branch POCT GLUCOSE (AUTOMATED) 2022-12-20 Liya [facility] 09:10:00 Medical Branch POCT GLUCOSE (AUTOMATED) 2022-12-20 Liya, [facility] 09:10:00 Medical Branch POCT GLUCOSE (AUTOMATED) 2022-12-20 Liya [facility] 05:17:00 Medical Branch POCT GLUCOSE (AUTOMATED) 2022-12-20 iLya [facility] 05:17:00 Medical Branch POCT GLUCOSE (AUTOMATED) 2022-12-19 Liya [facility] 23:10:00 Medical Branch POCT GLUCOSE (AUTOMATED) 2022-12-19 Liya Tavo [facility] 23:10[facility]00 Medical Branch POCT GLUCOSE (AUTOMATED) 2022-12-19 [facility] 16:53:00 Medical Branch POCT GLUCOSE (AUTOMATED) 2022-12-19 Liya, [facility] 16:53:00 Medical Branch POCT GLUCOSE (AUTOMATED) 2022-12-19 Liya [facility] 11:08:00 Medical Branch POCT GLUCOSE (AUTOMATED) 2022-12-19 Liya [facility] 11:08:00 Medical Branch PHOSPHORUS 2022-12-19 [place] [facility] [place] 09:38:00 Medical Branch MAGNESIUM 2022-12-19 Rajni [facility] [place] 09:38:00 Medical Branch BASIC METABOLIC PANEL (NA, K, 2022-12-19 [place] [facility] CL, CO2, GLUCOSE, BUN, 09:38:00 Medical B ranch CREATININE, CA) CBC WITH DIFF 2022-12-19 [place] [facility] [place] 09:38:00 Medical Branch PHOSPHORUS 2022-12-[address] [facility] [place] 09:38:00 Medical Branch MAGNESIUM 2022-12-19 Rajni [facility] [place] 09:38:00 Medical Branch BASIC METABOLIC PANEL (NA, K, 2022-12-19 [place] [facility] CL, CO2, GLUCOSE, BUN, 09:38:00 Medical [place] CREATININE, CA) CBC WITH DIFF 2022-12-19 [place] [facility] x[place] 09:38:00 Medical Branch POCT GLUCOSE (AUTOMATED) 2022-12-19 [facility] 05:05:00 Medical Branch POCT GLUCOSE (AUTOMATED) 2022-12-19 Liya [facility] 05:05:00 Medical Branch XR NECK SOFT TISSUE 2022-12-19 [facility] 03:07:00 Medical Branch XR NECK SOFT TISSUE 2022-12-19 [facility] 03:07:00 Medical Branch POCT GLUCOSE (AUTOMATED) 2022-12-18 Liya [facility] 22:57:00 Medical Branch POCT GLUCOSE (AUTOMATED) 2022-12-18 [facility] 22:57:00 Medical Branch POCT GLUCOSE (AUTOMATED) 2022-12-18 Liya [facility] 16:32:00 Medical Branch POCT GLUCOSE (AUTOMATED) 2022-12-18 Liya [facility] 16:32:00 Medical Branch XR CHEST 1 VW 2022-12-18 Christine Walker [facility] [place] 15:16:48 [facility] Medical Branch XR CHEST 1 VW 2022-12-18 Christine Walker [facility] x[place] 15:16:48 [facility] POCT GLUCOSE (AUTOMATED) 2022-12-18 Liya [facility] 10:48:00 Medical Branch POCT GLUCOSE (AUTOMATED) 2022-12-18 Liya [facility] 10:48:00 Medical Branch BLOOD CULTURE SCREEN 2022-12-18 Rajni [facility] 10:13:00 Medical Branch BLOOD CULTURE SCREEN 2022-12-18 Rajni [facility] 10:13:00 [facility] BLOOD CULTURE SCREEN 2022-12-18 Rajni [facility] 10:12:00 [facility] PHOSPHORUS 2022-12-18 Rajni [facility] x[place] 10:12:00 [facility] MAGNESIUM 2022-12-18 Rajni [facility] 10:12:00 [facility] BASIC METABOLIC PANEL (NA, K, 2022-12-18 [place] [facility] CL, CO2, GLUCOSE, BUN, 10:12:00 Medical B ran CREATININE, CA) CBC WITH DIFF 2022-12-18 Rajni [facility] xa 10:12:00 [facility] BLOOD CULTURE SCREEN 2022-12-18 Rajni [facility] 10:12:00 [facility] PHOSPHORUS 2022-12-18 Rajni [facility] xa 10:12:00 [facility] MAGNESIUM 2022-12-18 Rajni [facility] xa 10:12:00 [facility] BASIC METABOLIC PANEL (NA, K, 2022-12-18 [place] [facility] CL, CO2, GLUCOSE, BUN, 10:12:00 Medical B ran CREATININE, CA) CBC WITH DIFF 2022-12-18 Rajni [facility] 10:12:00 Medical Branch POCT GLUCOSE (AUTOMATED) 2022-12-18 Liya [facility] 05:42:00 Medical Branch POCT GLUCOSE (AUTOMATED) 2022-12-18 Liya [facility] 05:42:00 [place] POCT GLUCOSE (AUTOMATED) 2022-12-17 Liya [facility] 23:26:00 Medical Branch POCT GLUCOSE (AUTOMATED) 2022-12-17 [facility] 23:26:00 Medical Branch POCT GLUCOSE (AUTOMATED) 2022-12-17 Liya [facility] 16:58:00 Medical Branch POCT GLUCOSE (AUTOMATED) 2022-12-17 Liya, [facility] 16:58:00 Medical Branch POCT GLUCOSE (AUTOMATED) 2022-12-17 Liya [facility] 10:39:00 Medical Branch POCT GLUCOSE (AUTOMATED) 2022-12-17 Liya, [facility] 10:39:00 Medical Branch TROPONIN I 2022-12-17 [facility] 08:37:00 Medical Branch BASIC METABOLIC PANEL (NA, K, 2022-12-17 [facility]o [facility] CL, CO2, GLUCOSE, BUN, 08:37:00 Medical B ranch CREATININE, CA) CBC WITH DIFF 2022-12-17 [facility] [place] 08:37:00 Medical Branch TROPONIN I 2022-12-17 [facility] [place] 08:37:00 Medical Branch BASIC METABOLIC PANEL (NA, K, 2022-12-17 Bulmaro [facility] CL, CO2, GLUCOSE, BUN, 08:37:00 Medical B ranch CREATININE, CA) CBC WITH DIFF 2022-12-17 [facility] [place] 08:37:00 Medical Branch POCT GLUCOSE (AUTOMATED) 2022-12-17 Liya [facility] 04:20:00 Medical Branch POCT GLUCOSE (AUTOMATED) 2022-12-17 Liya [facility] 04:20:00 Medical Branch POCT GLUCOSE (AUTOMATED) 2022-12-16 Liya [facility] 23:24:00 Medical Branch POCT GLUCOSE (AUTOMATED) 2022-12-16 Liya [facility] 23:24:00 Medical Branch POCT GLUCOSE (AUTOMATED) 2022-12-16 Liya [facility] 16:42:00 Medical Branch POCT GLUCOSE (AUTOMATED) 2022-12-16 [facility] 16:42:00 Medical Branch CATHETER TIP CULTURE 2022-12-16 [facility] 16:13:00 Medical Branch CATHETER TIP CULTURE 2022-12-16 Lowry, [facility] 16:13:00 Medical Branch POCT GLUCOSE (AUTOMATED) 2022-12-16 [facility] 11:14:00 Medical Branch POCT GLUCOSE (AUTOMATED) 2022-12-16 [facility] 11:14:00 Medical Branch BLOOD CULTURE SCREEN 2022-12-16 [facility] 10:00:00 Medical Branch BLOOD CULTURE SCREEN 2022-12-16 [facility] 10:00:00 [facility] BLOOD CULTURE SCREEN 2022-12-16 [facility] 09:49:00 Medical Branch TROPONIN I 2022-12-16 [facility] [place] 09:49:00 Medical Branch HEPATIC FUNCTION PANEL 2022-12-16 [facility] ([id number]) (ALB,T.PRO,BILI 09:49:00 Medical Branch T,BU/BC,ALT,AST,ALK PHOS) BASIC METABOLIC PANEL (NA, K, 2022-12-16 Bulmaro [facility] CL, CO2, GLUCOSE, BUN, 09:49:00 Medical B ran CREATININE, CA) VANCOMYCIN RANDOM LEVEL 2022-12-16 Kari Brunson [facility] 09:49:00 P Medical Branch CBC WITH DIFF 2022-12-16 [facility] [place] 09:49:00 Medical Branch BLOOD CULTURE SCREEN 2022-12-16 [facility] 09:49:00 Medical Branch TROPONIN I 2022-12-16 [facility] [place] 09:49:00 [facility] HEPATIC FUNCTION PANEL 2022-12-16 [facility] ([id number]) (ALB,T.PRO,BILI 09:49:00 Medical Branch T,BU/BC,ALT,AST,ALK PHOS) BASIC METABOLIC PANEL (NA, K, 2022-12-16 [facility], CO2, GLUCOSE, BUN, 09:49:00 Medical B ranch CREATININE, CA) VANCOMYCIN RANDOM LEVEL 2022-12-16 Kari Brunson [facility] 09:49:00 P Medical Branch CBC WITH DIFF 2022-12-16 [facility] 09:49:00 Medical Branch POCT GLUCOSE (AUTOMATED) 2022-12-16 [facility] 05:29:00 Medical Branch POCT GLUCOSE (AUTOMATED) 2022-12-16 [facility] 05:29:00 Medical Branch POCT GLUCOSE (AUTOMATED) 2022-12-15 [facility] 23:01:00 Medical Branch POCT GLUCOSE (AUTOMATED) 2022-12-15 [facility] 23:01:00 Medical Branch TROPONIN I 2022-12-15 [facility] xa 22:25:00 Medical Branch TRANSFUSE PACKED RBC 2022-12-15 Taran Floresaf [facility] 22:25:00 Medical Branch TROPONIN I 2022-12-15 [facility] 22:25:00 [facility] [place] TRANSFUSE PACKED RBC 2022-12-15 BryanneTaran velardeaf A [facility] 22:25:00 [facility] PREPARE PACKED RBC 2022-12-15 [facility] 22:05:53 [facility] [place] PREPARE PACKED RBC 2022-12-15 Bulmaro [facility] 22:05:53 [facility] HEPATITIS B SURFACE ANTIBODY 2022-12-15 BryanmoTaran velardeaf [facility] 21:30:00 Medical Branch HEPATITIS B SURFACE ANTIGEN 2022-12-15 Sandra Manaf [facility] 21:30:00 Medical Branch HEPATITIS B SURFACE ANTIBODY 2022-12-15 Bryanmokathie Manaf [facility] 21:30:00 Medical Branch HEPATITIS B SURFACE ANTIGEN 2022-12-15 BryanmoTaran velardeaf A [facility] 21:30:00 Medical Branch ABORH CONFIRMATION (LAB ONLY) 2022-12-15 [facility] Un [facility] 17:58:00 Medical Branch ABORH CONFIRMATION (LAB ONLY) 2022-12-15 [facility] 17:58:00 Medical Branch POCT GLUCOSE (AUTOMATED) 2022-12-15 [facility], [facility] 17:57:00 Medical Branch POCT GLUCOSE (AUTOMATED) 2022-12-15 [facility], [facility] 17:57:00 Medical Branch TROPONIN I 2022-12-15 [facility], [facility] xas 16:29:00 Medical Branch HB ABO GROUPING 2022-12-15 [facility] 16:29:00 Medical Branch TROPONIN I 2022-12-15 [facility], [facility] x[place] 16:29:00 Medical Branch HB ABO GROUPING 2022-12-[address] [facility] 16:29:00 Medical Branch XR ABDOMEN 1 VW 2022-12-15 [facility], [facility] x[place] 13:17:17 Medical Branch XR ABDOMEN 1 VW 2022-12-15 [facility], [facility] [place] 13:17:17 Medical Branch TRANSTHORACIC ECHO (TTE) 2022-12-15 [facility], [facility] LIMITED W/ DOPPLER AND COLOR 12:57:00 Med ical Branch TRANSTHORACIC ECHO (TTE) 2022-12-15 [facility], [facility] LIMITED W/ DOPPLER AND COLOR 12:57:00 Med ical Branch PHOSPHORUS 2022-12-15 [facility], [facility] xas 10:53:00 Medical Branch LIPASE 2022-12-15 [facility], [facility] x[place] 10:53:00 Medical Branch MAGNESIUM 2022-12-15 [facility], [facility] x[place] 10:53:00 Medical Branch TROPONIN I 2022-12-15 [facility], [facility] [place] 10:53:00 Medical Branch BASIC METABOLIC PANEL (NA, K, 2022-12-15 Liya [facility] CL, CO2, GLUCOSE, BUN, 10:53:00 Medical B ranch CREATININE, CA) CBC WITH DIFF 2022-12-15 [facility], [facility] x[place] 10:53:00 Medical Branch N-TERMINAL PRO-BNP 2022-12-[address] 10:53:00 Medical Branch PHOSPHORUS 2022-12-[address], [facility] [place] 10:53:00 Medical Branch LIPASE 2022-12-[address], [facility] [place] 10:53:00 Medical Branch MAGNESIUM 2022-12-[address], [facility] [place] 10:53:00 Medical Branch TROPONIN I 2022-12-[address], [facility] [place] 10:53:00 Medical Branch BASIC METABOLIC PANEL (NA, K, 2022-12-15 Liya[facility], CO2, GLUCOSE, BUN, 10:53:00 Medical [place] CREATININE, CA) CBC WITH DIFF 2022-12-15 [facility], [facility] xa 10:53:00 Medical Branch N-TERMINAL PRO-BNP 2022-12-15 [facility], [facility] 10:53:00 Medical Branch POCT GLUCOSE (AUTOMATED) 2022-12-15 [facility] 10:43:00 Medical Branch POCT GLUCOSE (AUTOMATED) 2022-12-15 [facility], [facility] 10:43:00 Medical Branch COMP. METABOLIC PANEL ([id number]) 2022-12-15 Tavo [facility] 07:02:00 Medical Branch CBC WITH DIFF 2022-12-15 [facility], [facility] xas 07:02:00 Medical Branch LACTIC ACID WHOLE BLOOD 2022-12-15 [facility], [facility] 07:02:00 Medical Branch COMP. METABOLIC PANEL ([id number]) 2022-12-15 Tavo Nickerson [facility] 07:02:00 Medical Branch CBC WITH DIFF 2022-12-15 [facility], [facility] x[place] 07:02:00 Medical Branch LACTIC ACID WHOLE BLOOD 2022-12-15 [facility], [facility] 07:02:00 Medical Branch TROPONIN I 2022-12-15 Liya [facility] xa 05:08:00 Medical Branch MRSA / MSSA SCREEN BY PCR, 2022-12-15 [facility] 05:08:00 Medical Branch TROPONIN I 2022-12-15 Liya [facility] xas 05:08:00 Medical Branch MRSA / MSSA SCREEN BY PCR, 2022-12-15 Liya [facility] NARES 05:08:00 Medical Branch EXTERNAL PROVIDER RECORDS 2022-12-15 Doctor Unassigned, [facility] 05:01:00 [place] [facility] EXTERNAL PROVIDER RECORDS 2022-12-15 Doctor Unassigned, [facility] 05:01:00 [place] [facility] POCT GLUCOSE (AUTOMATED) 2022-12-15 [facility] 04:59:00 Medical Branch POCT GLUCOSE (AUTOMATED) 2022-12-15 Liya [facility] 04:59:00 Medical Branch XR FOOT 3+ VW RIGHT 2022-12-14 Sarahy Durán [facility] 23:40:41 Medical Branch XR FOOT 3+ VW RIGHT 2022-12-14 Sarahy Durán [facility] 23:40:41 Medical Branch NOTICE OF PRIVACY PRACTICES 2022-12-14 Doctor Unassigned, [facility] 23:30:56 [place] [facility] NOTICE OF PRIVACY PRACTICES 2022-12-14 Doctor Unassigned, [facility] 23:30:56 [place] [facility] CONSENT/REFUSAL FOR DIAGNOSIS 2022-12-14 Doctor Unassigned, [facility] 23:30:30 [place] [facility] CONSENT/REFUSAL FOR DIAGNOSIS 2022-12-14 Doctor Unassigned, [facility] 23:30:30 [place] [facility] ASSIGNMENT OF BENEFITS 2022-12-14 Doctor Unassigned, [facility] 23:30:08 [place] [facility] ASSIGNMENT OF BENEFITS 2022-12-14 Doctor Unassigned, [facility] 23:30:[address] [place] [address] ABDOMEN PELVIS WO CONTRAST 2022-12-14 Ibikunle, [facility] 23:30:00 [facility] CT ABDOMEN PELVIS WO CONTRAST 2022-12-14 Luis Armando [facility] 23:30:00 Medical Branch XR CHEST 1 VW 2022-12-14 Sydmartine [facility] 23:20:00 Medical Branch XR CHEST 1 VW 2022-12-14 [facility] 23:20:00 [facility] [place] HB ECG ROUTINE & RHYTHM STRIP 2022-12-14 Sydformerly [facility] 23:09:39 [facility] HB ECG ROUTINE & RHYTHM STRIP 2022-12-14 [facility] 23:09:39 [facility] POCT GLUCOSE (AUTOMATED) 2022-12-14 [facility] 22:56:00 [facility] POCT GLUCOSE (AUTOMATED) 2022-12-14 David [facility] 22:56:00 [facility] LACTIC ACID WHOLE BLOOD 2022-12-14 Luis Armando [facility] 22:50:00 [facility] LACTIC ACID WHOLE BLOOD 2022-12-14 [facility] 22:50:00 Medical Branch LIPASE 2022-12-14 Sydformerly [facility] 22:49:00 Medical Branch MAGNESIUM 2022-12-14 [facility] xas 22:49:00 [facility] TROPONIN I 2022-12-14 Sydformerly [facility] 22:49:00 [facility] COMP. METABOLIC PANEL ([id number]) 2022-12-14 Luis Armando [facility] 22:49:00 Medical Branch CBC WITH DIFF 2022-12-14 Luis Armando [facility] 22:49:00 Medical Branch N-TERMINAL PRO-BNP 2022-12-14 Sarahy Durán [facility] 22:49:00 Medical Branch BLOOD CULTURE WORKUP 2022-12-14 [facility] 22:49:00 Medical Branch BLOOD CULTURE WORKUP 2022-12-14 Sydmartine [facility] 22:49:00 Medical Branch GRAM POSITIVE BLOOD PATHOGENS 2022-12-14 Sydformerly [facility] DNA PROBE-AEROBIC 22:49:00 Medical Branch BLOOD CULTURE SCREEN 2022-12-14 Sydformerly [facility] 22:49:00 Medical Branch LIPASE 2022-12-14 Sydformerly [facility] 22:49:00 Medical Branch MAGNESIUM 2022-12-14 [facility] x[facility] 22:49:00 Medical Branch TROPONIN I 2022-12-14 [facility] 22:49:00 Medical Branch COMP. METABOLIC PANEL ([id number]) 2022-12-14 [facility] 22:49:00 Medical Branch CBC WITH DIFF 2022-12-14 [facility] 22:49:00 Medical Branch N-TERMINAL PRO-BNP 2022-12-14 [facility] 22:49:00 Medical Branch BLOOD CULTURE WORKUP 2022-12-14 [facility] 22:49:00 Medical Branch BLOOD CULTURE WORKUP 2022-12-14 [facility] 22:49:00 Medical Branch GRAM POSITIVE BLOOD PATHOGENS 2022-12-14 [facility] DNA PROBE-AEROBIC 22:49:00 Medical Branch BLOOD CULTURE SCREEN 2022-12-14 [facility] 22:49:00 Medical Branch POCT GLUCOSE (AUTOMATED) 2022-11-07 [place] [facility] 21:57:00 [facility] [place] POCT GLUCOSE (AUTOMATED) 2022-11-07 [place] [facility] 16:44:00 [facility] [place] POCT GLUCOSE (AUTOMATED) 2022-11-07 [place] [facility] 13:11:00 [facility] BASIC METABOLIC PANEL (NA, K, 2022-11-07 Adonis Keenan [facility] CL, CO2, GLUCOSE, BUN, 08:55:[address] [facility] CREATININE, CA) CBC WITH DIFF 2022-11-07 [facility] 08:55:00 Medical Branch POCT GLUCOSE (AUTOMATED) 2022-11-06 [place] [facility] 21:39:00 Medical Branch POCT GLUCOSE (AUTOMATED) 2022-11-06 [place] [facility] 16:26:00 Medical Branch TROPONIN I 2022-11-06 Liya [facility] xas 14:09:00 Medical Branch HEPATITIS B SURFACE ANTIBODY 2022-11-06 [facility] 14:09:00 Medical Branch HEPATITIS B SURFACE ANTIGEN 2022-11-06 [facility] 14:09:00 Medical Branch POCT GLUCOSE (AUTOMATED) 2022-11-06 [place] [facility] 12:39:00 Medical Branch BASIC METABOLIC PANEL (NA, K, 2022-11-06 [facility] CL, CO2, GLUCOSE, BUN, 08:56:00 [facility] CREATININE, CA) CBC WITH DIFF 2022-11-06 [facility] 08:56:00 [facility] N-TERMINAL PRO-BNP 2022-11-06 [facility] 08:56:00 [facility] EXTERNAL PROVIDER RECORDS 2022-11-06 Doctor Unassigned, [facility] 05:01:00 [place] [facility] DISCLOSURE AND CONSENT, 2022-11-06 Doctor Unassigned, [facility] MEDICAL [facility] SURGICAL 05:01:00 [place] [facility] PROCEDURES POCT GLUCOSE (AUTOMATED) 2022-11-06 [place] [facility] 01:40:00 Medical Branch POCT GLUCOSE (AUTOMATED) 2022-11-05 [place] [facility] 22:02:00 Medical Branch POCT GLUCOSE (AUTOMATED) 2022-11-05 [place] [facility] 16:39:00 Medical Branch TRANSTHORACIC ECHO (TTE) 2022-11-05 Tavo Nickerson [facility] COMPLETE W/ CONTRAST 14:33:00 [facility] POCT GLUCOSE (AUTOMATED) 2022-11-05 [place] [facility] 12:53:00 Medical Branch PHOSPHORUS 2022-11-05 [facility] xa 09:24:00 Medical Branch MAGNESIUM 2022-11-05 [facility] 09:24:00 [facility] TROPONIN I 2022-11-05 [facility], [facility] xa 09:24:00 [facility] COMP. METABOLIC PANEL ([id number]) 2022-11-05 [facility] 09:24:00 [facility] LIPID PANEL ([id number])(TOTAL 2022-11-05 [facility] CHOLESTEROL, TRIGLYCERIDES, 09:24:00 [facility] HDL) CBC WITH DIFF 2022-11-05 [facility] 09:24:00 [facility] N-TERMINAL PRO-BNP 2022-11-05 [facility] 09:24:00 [facility] TROPONIN I 2022-11-[address] [facility] 02:39:00 [facility] BLOOD CULTURE SCREEN 2022-11-04 Katherin Persaud [facility] 21:48:00 [facility] RAPID INFLUENZA A/B 2022-11-04 Katherin Persaud [facility] 20:50:00 [facility] WOUND CULTURE 2022-11-[address] [facility] 20:50:00 [facility] COVID-19 (ID NOW RAPID 2022-11-04 Katherin Persaud [facility] TESTING) 20:50:00 [facility] LAB ONLY COVID INTERPRETATION 2022-11-04 Katherin Persaud [facility] 20:50:00 [facility] XR CHEST 1 VW 2022-11-[address] [facility] 20:29:26 [facility] HB ECG ROUTINE & RHYTHM STRIP 2022-11-04 Katherin Persaud [facility] 19:39:09 [facility] PHOSPHORUS 2022-11-[address] [facility] 19:31:00 [facility] CREATINE KINASE 2022-11-[address] [facility] 19:31:00 Medical Branch MAGNESIUM 2022-11-04 Katherin Persaud [facility] exas 19:31:00 Medical Branch TROPONIN I 2022-11-04 Katherin Persaud [facility] exas 19:31:00 Medical Branch FREE T4 2022-11-04 [facility] [place] 19:31:00 Medical Branch THYROID STIMULATING HORMONE 2022-11-04 [facility] 19:31:00 Medical Branch COMP. METABOLIC PANEL ([id number]) 2022-11-04 Katherin Persaud [facility] 19:31:00 Medical Branch CBC WITH DIFF 2022-11-04 Katherin Persaud [facility] exas 19:31:00 Medical Branch GLYCOSYLATED HEMOGLOBIN (A1C) 2022-11-04 [facility] 19:31:00 Medical Branch URINALYSIS 2022-11-04 Katehrin Persaud [facility] ex 19:31:00 Medical Branch N-TERMINAL PRO-BNP 2022-11-04 Katherin Persaud [facility] 19:31:00 Medical Branch FREE T3 2022-11-04 [facility] 19:31:00 Medical Branch LACTIC ACID WHOLE BLOOD 2022-11-04 Katherin Persaud [facility] 19:30:00 Medical Branch [id number] 2022-07-06 ACHKA [facility] 00:00:00 [facility] [id number] 2022-07-04 [facility] 00:00:00 [facility] [id number] 2022-07-01 [facility] 00:00:00 [facility] [id number] 2022-06-29 [facility] 00:00:00 [facility] [id number] 2022-06-28 [facility] 00:00:00 [facility] [id number] 2022-06-27 ALDMO [facility] 00:00:00 [facility] [id number] 2022-06-27 ALDMO [facility] 00:00:00 [facility] [id number] 2022-06-27 ALDMO [facility] 00:00:00 [facility] [id number] 2022-06-27 ACHKA [facility] 00:00:00 [facility] [id number] 2022-06-26 [facility] 00:00:00 [facility] [id number] 2022-06-26 [facility] 00:00:00 [facility] [id number] 2022-06-26 [facility] 00:00:00 [facility] [id number] 2022-06-26 [facility] 00:00:00 [facility] [id number] 2022-06-26 [facility] [place] 00:00:00 [facility] [id number] 2022-06-24 [facility] 00:00:00 [facility] [id number] 2022-06-23 [facility] [place] 00:00:00 [facility] [id number] 2022-06-22 [facility] [place] 00:00:00 [facility] POC GLUCOSE 2022-04-26 [facility] 16:04:00 E. [place] AN ELECTIVE ENDOTRACHEAL 2022-04-26 Mariely De La Cruz [facility] AIRWAY 15:12:00 LAPAROSCOPIC REMOVAL OR 2022-04-26 [facility] REPOSITIONING OF PERITONEAL 14:56:00 E. DIALYSIS CATHETER ESTIMATED GFR 2022-04-26 Jose Becker [facility] pital 13:00:00 E. POC PANEL 2022-04-26 [facility] 13:00:00 E. POC GLUCOSE 2022-03-06 [facility] 16:00:00 E. SURGICAL PATHOLOGY REQUEST 2022-03-06 [facility] 15:28:00 E. POC GLUCOSE 2022-03-[address] [facility] 15:23:00 E. ANESTHESIA INTUBATION 2022-03-06 [facility] 12:57:00 CHOLECYSTECTOMY, LAPAROSCOPIC 2022-03-06 [facility] 12:44:00 E. INSERTION, CATHETER, 2022-03-06 [facility] DIALYSIS, PERITONEAL, 12:44:00 E. LAPAROSCOPIC ESTIMATED GFR 2022-03-06 Jose Becker [facility] pital 11:50:00 E. POC PANEL 2022-03-06 [facility] E. BASIC METABOLIC PANEL 2022-03-06 [facility] 11:40:00 ESTIMATED GFR [facility]:40[facility]00 CBC WITH PLATELET AND 2022-03-01 [facility] DIFFERENTIAL 18:18:00 HEMOGLOBIN A1C 2022-03-01 [facility] 18:18:00 PARTIAL THROMBOPLASTIN TIME 2022-03-01 [facility] (PTT) 18:18:00 PROTHROMBIN TIME WITH INR 2022-03-01 [facility] 18:18:00 REFERRAL- REQUEST/RESPONSE 2022-02-07 Doctor Unassigned, [facility] 05:01:00 [facility] ECG PRE/POST OP 2021[facility]12-12 [facility] 20:54:02 CBC WITH PLATELET AND 2021-12-12 [facility] DIFFERENTIAL 20:25:00 HEMOGLOBIN A1C 2021-12-12 [facility] 20:25:00 TYPE AND SCREEN 2021-12-12 [facility] 20:25:00 PHACOEMULSIFICATION OF 2020-10-14 [facility] CATARACT WITH INTRAOCULAR 13:33:00 [facility] LENS IMPLANT POCT GLUCOSE (AUTOMATED) 2020-10-14 Aleisha [facility] 12:38:00 [facility] POCT GLUCOSE(AGE >30DAYS) 2020-10-14 Anita Edwards [facility] 12:35:00 [facility] ASSIGNMENT OF BENEFITS 2020-10-12 Doctor Unassigned, [facility] 16:32:53 [facility] POCT GLUCOSE(AGE >30DAYS) 2020-04-01 Grant Skinner [facility] 12:03:00 [facility] ASSIGNMENT OF BENEFITS 2020-03-30 Doctor Unassigned, [facility] 16:01:28 [facility] NOTICE OF BILLING PRACTICES 2020-03-23 Doctor Unassigned, [facility] FOR MEDICARE PATIENTS 20:49:43 [facility] PATIENT FINANCIAL POLICY 2020-03-23 Doctor Unassigned, [facility] 20:49:19 [facility] NO SHOW OR MISSED APPOINTMENT 2020-03-23 Doctor Unassigned, [facility] POLICY ACKNOWLEDGEMENT 20:48:59 [facility] NOTICE OF PRIVACY PRACTICES 2020-03-23 Doctor Unassigned, [facility] 20:48:48 [facility] CONSENT/REFUSAL FOR DIAGNOSIS 2020-03-23 Doctor Unassigned, [facility] AND TREATMENT 20:48:30 [facility] ASSIGNMENT OF BENEFITS 2020-03-23 Doctor Unassigned, [facility] 20:48:19 [facility] PHYSICIAN ORDERS 2020-03-23 Doctor Unassigned, [facility] 05:01:00 [facility] Knee replacement<sup>2</sup> [facility] orial Lewis Fusion<sup>1</sup> [facility]oss [facility] Planned Activity Planned Date Details Comments Source Future Scheduled 2023-05-02 Screening for [facility] Test 19:11:14 malignant neoplasm of colon (procedure) [code = 512426711] Future Scheduled 2023-05-02 Screening for [facility] Test 19:11:14 malignant neoplasm of colon (procedure) [code = 150092719] Future Scheduled 2023-05-02 Screening for [facility] Test 19:11:14 malignant neoplasm of colon (procedure) [code = 161283248] Future Scheduled 2023-05-02 Hepatitis C screening [facility] Test 19:11:14 (procedure) [code = 581630944] Future Scheduled 2023-05-02 BREAST CANCER [facility] Test 19:11:14 SCREENING [code = BREAST CANCER SCREENING] Future Scheduled 2023-05-02 Screening for [facility] Test 19:11:14 malignant neoplasm of colon (procedure) [code = 023820602] Future Scheduled 2023-05-02 Screening for [facility] Test 19:11:14 malignant neoplasm of colon (procedure) [code = 256505160] Future Scheduled 2023-05-02 SHINGLES VACCINES (1 Met [facility] Test 19:11:14 of 2) [code = SHINGLES VACCINES (1 of 2)] Future Scheduled 2023-05-02 65+ PNEUMOCOCCAL [facility] Test 19:11:14 VACCINE (3 - PCV) [code = 65+ PNEUMOCOCCAL VACCINE (3 - PCV)] Future Scheduled 2023-05-02 COVID-19 VACCINE (6 - [facility] Test 19:11:14 season) [code = COVID-19 VACCINE ( - season)] Future Scheduled 2023-05-02 INFLUENZA VACCINE (#1) [facility] Test 19:11:14 [code = INFLUENZA VACCINE (#1)] Future Scheduled 2023-05-02 Screening for [facility] Test 19:11:14 malignant neoplasm of colon (procedure) [code = 952218767] Future Scheduled 2023-05-02 Screening for [facility] Test 19:11:14 malignant neoplasm of colon (procedure) [code = 126583160] Future Scheduled 2023-05-02 Screening for [facility] Test 19:11:14 malignant neoplasm of colon (procedure) [code = 601136891] Future Scheduled 2023-05-02 Hepatitis C screening [facility] Test 19:11:14 (procedure) [code = 355997581] Future Scheduled 2023-05-02 BREAST CANCER [facility] Test 19:11:14 SCREENING [code = BREAST CANCER SCREENING] Future Scheduled 2023-05-02 Screening for [facility] Test 19:11:14 malignant neoplasm of colon (procedure) [code = 942556330] Future Scheduled 2023-05-02 Screening for [facility] Test 19:11:14 malignant neoplasm of colon (procedure) [code = 823698519] Future Scheduled 2023-05-02 SHINGLES VACCINES (1 Met [facility] Test 19:11:14 of 2) [code = SHINGLES VACCINES (1 of 2)] Future Scheduled 2023-05-02 65+ PNEUMOCOCCAL [facility] Test 19:11:14 VACCINE (3 - PCV) [code = 65+ PNEUMOCOCCAL VACCINE (3 - PCV)] Future Scheduled 2023-05-02 COVID-19 VACCINE (6 - [facility] Test 19:11:14 2023-24 season) [code = COVID-19 VACCINE ( season)] Future Scheduled 2023-05-02 INFLUENZA VACCINE (#1) [facility] Test 19:11:14 [code = INFLUENZA VACCINE (#1)] Future Scheduled 2023-05-02 Screening for [facility] Test 19:11:14 malignant neoplasm of colon (procedure) [code = 560562246] Future Scheduled 2023-05-02 Screening for [facility] Test 19:11:14 malignant neoplasm of colon (procedure) [code = 216439543] Future Scheduled 2023-05-02 Screening for [facility] Test 19:11:14 malignant neoplasm of colon (procedure) [code = 842926597] Future Scheduled 2023-05-02 Hepatitis C screening [facility] Test 19:11:14 (procedure) [code = 047540541] Future Scheduled 2023-05-02 BREAST CANCER [facility] Test 19:11:14 SCREENING [code = BREAST CANCER SCREENING] Future Scheduled 2023-05-02 Screening for [facility] Test 19:11:14 malignant neoplasm of colon (procedure) [code = 972257048] Future Scheduled 2023-05-02 Screening for [facility] Test 19:11:14 malignant neoplasm of colon (procedure) [code = 151675794] Future Scheduled 2023-05-02 SHINGLES VACCINES ([address] [facility] 19:11:14 of 2) [code = SHINGLES VACCINES (1 of 2)] Future Scheduled 2023-05-02 65+ PNEUMOCOCCAL [facility] Test 19:11:14 VACCINE (3 - PCV) [code = 65+ PNEUMOCOCCAL VACCINE (3 - PCV)] Future Scheduled 2023-05-02 COVID-19 VACCINE (6 - [facility] Test 19:11:14 season) [code = COVID-19 VACCINE ( season)] Future Scheduled 2023-05-02 INFLUENZA VACCINE (#1) [facility] Test 19:11:14 [code = INFLUENZA VACCINE (#1)] Future Scheduled 2023-05-02 Screening for [facility] Test 19:11:14 malignant neoplasm of colon (procedure) [code = 042651501] Future Scheduled 2023-05-02 Screening for [facility] Test 19:11:14 malignant neoplasm of colon (procedure) [code = 023636928] Future Scheduled 2023-05-02 Screening for [facility] Test 19:11:14 malignant neoplasm of colon (procedure) [code = 405726253] Future Scheduled 2023-05-02 Hepatitis C screening [facility] Test 19:11:14 (procedure) [code = 417689668] Future Scheduled 2023-05-02 BREAST CANCER [facility] Test 19:11:14 SCREENING [code = BREAST CANCER SCREENING] Future Scheduled 2023-05-02 Screening for [facility] Test 19:11:14 malignant neoplasm of colon (procedure) [code = 262956094] Future Scheduled 2023-05-02 Screening for [facility] Test 19:11:14 malignant neoplasm of colon (procedure) [code = 221109559] Future Scheduled 2023-05-02 SHINGLES VACCINES (1 Met [facility] Test 19:11:14 of 2) [code = SHINGLES VACCINES (1 of 2)] Future Scheduled 2023-05-02 65+ PNEUMOCOCCAL [facility] Test 19:11:14 VACCINE (3 - PCV) [code = 65+ PNEUMOCOCCAL VACCINE (3 - PCV)] Future Scheduled 2023-05-02 COVID-19 VACCINE (6 - [facility] Test 19:11:14 season) [code = COVID-19 VACCINE (6 - season)] Future Scheduled 2023-05-02 INFLUENZA VACCINE (#1) [facility] Test 19:11:14 [code = INFLUENZA VACCINE (#1)] Future Scheduled 2023-03-25 Screening for [facility] Test 19:57:38 malignant neoplasm of colon (procedure) [code = 619424144] Future Scheduled 2023-03-25 Screening for [facility] Test 19:57:38 malignant neoplasm of colon (procedure) [code = 730723333] Future Scheduled 2023-03-25 Screening for [facility] Test 19:57:38 malignant neoplasm of colon (procedure) [code = 528681210] Future Scheduled 2023-03-25 Hepatitis C screening [facility] Test 19:57:38 (procedure) [code = 791115221] Future Scheduled 2023-03-25 BREAST CANCER [facility] Test 19:57:38 SCREENING [code = BREAST CANCER SCREENING] Future Scheduled 2023-03-25 Screening for [facility] Test 19:57:38 malignant neoplasm of colon (procedure) [code = 602535062] Future Scheduled 2023-03-25 Screening for [facility] Test 19:57:38 malignant neoplasm of colon (procedure) [code = 792006624] Future Scheduled 2023-03-25 [facility]INGLES [facility]ACCINES ([facility] 19:57:38 of 2) [code = SHINGLES VACCINES (1 of 2)] Future Scheduled 2023-03-25 65+ [facility] Test 19:57:38 VACCINE (3 - PCV) [code = 65+ PNEUMOCOCCAL VACCINE (3 - PCV)] Future Scheduled 2023-03-25 COVID-19 [facility]ACCINE ([facility] - [facility] 19:57:38 Pfizer series) [code = [...] Vaccine (#1)] Future Scheduled 2023-03-04 Screening for [facility] Test 13:22:55 malignant neoplasm of colon (procedure) [code = 163269370] Future Scheduled 2023-03-04 Screening for [facility] Test 13:22:55 malignant neoplasm of colon (procedure) [code = 488855855] Future Scheduled 2023-03-04 Screening for [facility] Test 13:22:55 malignant neoplasm of colon (procedure) [code = 544457085] Future Scheduled 2023-03-04 Hepatitis C screening [facility] Test 13:22:55 (procedure) [code = 913504539] Future Scheduled 2023-03-04 BREAST CANCER [facility] Test 13:22:55 SCREENING [code = BREAST CANCER SCREENING] Future Scheduled 2023-03-04 Screening for [facility] Test 13:22:55 malignant neoplasm of colon (procedure) [code = 293059477] Future Scheduled 2023-03-04 Screening for [facility] Test 13:22:55 malignant neoplasm of colon (procedure) [code = 534842156] Future Scheduled 2023-03-04 SHINGLES VACCINES (1 Met [facility] Test 13:22:55 of 2) [code = SHINGLES VACCINES (1 of 2)] Future Scheduled 2023-03-04 65+ PNEUMOCOCCAL [facility] Test 13:22:55 VACCINE (3 - PCV) [code = 65+ PNEUMOCOCCAL VACCINE (3 - PCV)] Future Scheduled 2023-03-04 COVID-19 VACCINE (6 - [facility] Test 13:22:55 Pfizer series) [code = COVID-19 VACCINE (6 - Pfizer series)] Future Scheduled 2023-03-04 INFLUENZA VACCINE (#1) [facility] Test 13:22:55 [code = INFLUENZA VACCINE (#1)] Future Scheduled 2023-01-27 Screening for [facility] Test 15:11:15 malignant neoplasm of colon (procedure) [code = 665521400] Future Scheduled 2023-01-27 Screening for [facility] Test 15:11:15 malignant neoplasm of colon (procedure) [code = 558299350] Future Scheduled 2023-01-27 Screening for [facility] Test 15:11:15 malignant neoplasm of colon (procedure) [code = 694593030] Future Scheduled 2023-01-27 Hepatitis C screening [facility] Test 15:11:15 (procedure) [code = 579694552] Future Scheduled 2023-01-27 BREAST CANCER [facility] Test 15:11:15 SCREENING [code = BREAST CANCER SCREENING] Future Scheduled 2023-01-27 Screening for [facility] Test 15:11:15 malignant neoplasm of colon (procedure) [code = 704172131] Future Scheduled 2023-01-27 Screening for [facility] Test 15:11:15 malignant neoplasm of colon (procedure) [code = 976445550] Future Scheduled 2023-01-27 SHINGLES VACCINES (1 Met [facility] Test 15:11:15 of 2) [code = SHINGLES VACCINES (1 of 2)] Future Scheduled 2023-01-27 65+ [facility]AL [facility] 15:11:15 VACCINE (3 - PCV) [code = 65+ PNEUMOCOCCAL VACCINE (3 - PCV)] Future Scheduled 2023-01-27 COVID-19 VACCINE (6 - [facility] Test 15:11:15 Pfizer series) [code = COVID-19 VACCINE (6 - Pfizer series)] Future Scheduled 2023-01-27 INFLUENZA VACCINE [facility] Test 15:11:15 [code = INFLUENZA VACCINE] Future Scheduled 2022-11-03 Hepatitis C screening [facility] Test 07:38:23 (procedure) [code = 419680209] Future Scheduled 2022-11-03 SHINGLES VACCINES (1 Met [facility] Test 07:38:23 of 2) [code = SHINGLES VACCINES (1 of 2)] Future Scheduled 2022-11-03 BREAST CANCER [facility] Test 07:38:23 SCREENING [code = BREAST CANCER SCREENING] Future Scheduled 2022-11-03 COLONOSCOPY SCREENING [facility] Test 07:38:23 [code = COLONOSCOPY SCREENING] Future Scheduled 2022-11-03 65+ PNEUMOCOCCAL [facility] Test 07:38:23 VACCINE (3 - PCV) [code = 65+ PNEUMOCOCCAL VACCINE (3 - PCV)] Future Scheduled 2022-11-03 INFLUENZA VACCINE [facility] Test 07:38:23 [code = INFLUENZA VACCINE] Future Scheduled 2022-11-03 Hepatitis C screening [facility] Test 07:38:23 (procedure) [code = 316570667] Future Scheduled 2022-11-03 SHINGLES VACCINES (1 Met [facility] Test 07:38:23 of 2) [code = SHINGLES VACCINES (1 of 2)] Future Scheduled 2022-11-03 BREAST CANCER [facility] Test 07:38:23 SCREENING [code = BREAST CANCER SCREENING] Future Scheduled 2022-11-03 [facility] 07:38:23 [code = COLONOSCOPY SCREENING] Future Scheduled 2022-11-03 65+ [facility] 07:38:23 VACCINE (3 - PCV) [code = 65+ PNEUMOCOCCAL VACCINE (3 - PCV)] Future Scheduled 2022-11-03 INFLUENZA VACCINE [facility] Test 07:38:23 [code = INFLUENZA VACCINE] Future Scheduled 2022-10-09 Hepatitis C screening [facility] Test 14:08:24 (procedure) [code = 204928163] Future Scheduled 2022-10-09 SHINGLES VACCINES (1 Met [facility] Test 14:08:24 of 2) [code = SHINGLES VACCINES (1 of 2)] Future Scheduled 2022-10-09 BREAST CANCER [facility] Test 14:08:24 SCREENING [code = BREAST CANCER SCREENING] Future Scheduled 2022-10-09 COLONOSCOPY SCREENING [facility] Test 14:08:24 [code = COLONOSCOPY SCREENING] Future Scheduled 2022-10-09 65+ [facility]:08[facility] VACCINE (3 - PCV) [code = 65+ PNEUMOCOCCAL VACCINE (3 - PCV)] Future Scheduled 2022-10-09 INFLUENZA VACCINE [facility] Test 14:08:24 [code = INFLUENZA VACCINE] Future Scheduled 2022-10-09 Hepatitis C screening [facility] Test 14:08:24 (procedure) [code = 521800263] Future Scheduled 2022-10-09 SHINGLES VACCINES (1 Met [facility] Test 14:08:24 of 2) [code = SHINGLES VACCINES (1 of 2)] Future Scheduled 2022-10-09 BREAST CANCER [facility] Test 14:08:24 SCREENING [code = BREAST CANCER SCREENING] Future Scheduled 2022-10-09 COLONOSCOPY SCREENING [facility] Test 14:08:24 [code = COLONOSCOPY SCREENING] Future Scheduled 2022-10-09 65+ [facility] 14:08:24 VACCINE (3 - PCV) [code = 65+ PNEUMOCOCCAL VACCINE (3 - PCV)] Future Scheduled 2022-10-09 INFLUENZA VACCINE [facility] Test 14:08:24 [code = INFLUENZA VACCINE] Future Scheduled 2022-10-09 Hepatitis C screening [facility] Test 14:08:24 (procedure) [code = 421580064] Future Scheduled 2022-10-09 SHINGLES VACCINES (1 [facility] Test 14:08:24 of 2) [code = SHINGLES VACCINES (1 of 2)] Future Scheduled 2022-10-09 BREAST CANCER [facility] Test 14:08:24 SCREENING [code = BREAST CANCER SCREENING] Future Scheduled 2022-10-09 COLONOSCOPY SCREENING [facility] Test 14:08:24 [code = COLONOSCOPY SCREENING] Future Scheduled 2022-10-09 65+ [facility] 14:08:24 VACCINE (3 - PCV) [code = 65+ PNEUMOCOCCAL VACCINE (3 - PCV)] Future Scheduled 2022-10-09 INFLUENZA VACCINE [facility] Test 14:08:24 [code = INFLUENZA VACCINE] Future Scheduled 2022-09-25 Hepatitis C screening [facility] Test 16:30:22 (procedure) [code = 575213556] Future Scheduled 2022-09-25 SHINGLES VACCINES (1 Met [facility] Test 16:30:22 of 2) [code = SHINGLES VACCINES (1 of 2)] Future Scheduled 2022-09-25 BREAST CANCER [facility] Test 16:30:22 SCREENING [code = BREAST CANCER SCREENING] Future Scheduled 2022-09-25 COLONOSCOPY SCREENING [facility] Test 16:30:22 [code = COLONOSCOPY SCREENING] Future Scheduled 2022-09-25 65+ [facility] 16:30:22 VACCINE (3 - PCV) [code = 65+ PNEUMOCOCCAL VACCINE (3 - PCV)] Future Scheduled 2022-09-25 INFLUENZA VACCINE [facility] Test 16:30:22 [code = [...] Hepatitis C screening [facility] Test 00:46:40 (procedure) [code = 302252523] Future Scheduled 2022-06-22 SHINGLES VACCINES (1 [facility] Test 00:46:40 of 2) [code = SHINGLES VACCINES (1 of 2)] Future Scheduled 2022-06-22 BREAST CANCER [facility] Test 00:46:40 SCREENING [code = BREAST CANCER SCREENING] Future Scheduled 2022-06-22 COLONOSCOPY SCREENING [facility] Test 00:46:40 [code = COLONOSCOPY SCREENING] Future Scheduled 2022-06-22 65+ [facility] 00:46:40 VACCINE (3 - PCV) [code = 65+ PNEUMOCOCCAL VACCINE (3 - PCV)] Future Scheduled 2022-06-22 [facility] 00:46:40 [code = INFLUENZA VACCINE] Future Scheduled 2022-06-22 Hepatitis C screening [facility] Test 00:46:40 (procedure) [code = 715015586] Future Scheduled 2022-06-22 SHINGLES VACCINES (1 [facility] Test 00:46:40 of 2) [code = SHINGLES VACCINES (1 of 2)] Future Scheduled 2022-06-22 BREAST CANCER [facility] Test 00:46:40 SCREENING [code = BREAST CANCER SCREENING] Future Scheduled 2022-06-22 COLONOSCOPY SCREENING [facility] Test 00:46:40 [code = COLONOSCOPY SCREENING] Future Scheduled 2022-06-22 65+ [facility] 00:46:40 VACCINE (3 - PCV) [code = 65+ PNEUMOCOCCAL VACCINE (3 - PCV)] Future Scheduled 2022-06-22 [facility]INE [facility] 00:46:40 [code = INFLUENZA VACCINE] Future Scheduled 2022-06-22 Hepatitis C screening [facility] Test 00:46:40 (procedure) [code = 047920270] Future Scheduled 2022-06-22 SHINGLES VACCINES (1 [facility] Test 00:46:40 of 2) [code = SHINGLES VACCINES (1 of 2)] Future Scheduled 2022-06-22 BREAST CANCER [facility] Test 00:46:40 SCREENING [code = BREAST CANCER SCREENING] Future Scheduled 2022-06-22 COLONOSCOPY SCREENING [facility] Test 00:46:40 [code = COLONOSCOPY SCREENING] Future Scheduled 2022-06-22 65+ [facility] 00:46:40 VACCINE (3 - PCV) [code = 65+ PNEUMOCOCCAL VACCINE (3 - PCV)] Future Scheduled 2022-06-22 INFLUENZA VACCINE [facility] Test 00:46:40 [code = INFLUENZA VACCINE] Future Scheduled 2022-06-11 HEPATITIS B VACCINES Met [facility] Test 01:18:56 (1 of 3 - 3-dose series) [code = HEPATITIS B VACCINES (1 of 3 - 3-dose series)] Future Scheduled 2022-06-11 Hepatitis C screening [facility] Test 01:18:56 (procedure) [code = 407131571] Future Scheduled 2022-06-11 SHINGLES VACCINES (1 Met [facility] Test 01:18:56 of 2) [code = SHINGLES VACCINES (1 of 2)] Future Scheduled 2022-06-11 BREAST CANCER [facility] Test 01:18:56 SCREENING [code = BREAST CANCER SCREENING] Future Scheduled 2022-06-11 COLONOSCOPY SCREENING [facility] Test 01:18:56 [code = COLONOSCOPY SCREENING] Future [facility] [code = 347666433] Future Scheduled [address] [facility] colon (procedure) [code = 541167441] Future Scheduled 1956 [facility] Future Scheduled 1956 [facility]oscopy [facility]] [facility] Future Scheduled [address] [facility] 00:[facility]:00 [facility] breast (procedure) [code = 482235060] Future Scheduled [address] [facility] 00:00:00 (combo) [code = CT Medical C enter Colonography (combo)] Future Scheduled [address] [facility] 00:[facility]00 [facility] colon (procedure) [code = 981595858] Future Scheduled [address] [facility] 00:[facility]:00 [facility] colon (procedure) [code = 988661075] Future Scheduled 1956 DXA SCAN [code = [facility]XA [facility] 00:00:00 SCAN] [facility] [place] Future Scheduled [address] [facility] 00:[facility]:00 [facility] colon (procedure) [code = 630111065] Future Scheduled [address] [facility] 00:00:00 [facility] colon (procedure) [code = 341825824] Future Scheduled 1956 [facility] [address] [facility] 00:00:00 malignant [facility] breast (procedure) [code = 698985878] Future Scheduled [address] [facility] 00:00:00 (combo) [code = CT Medical C enter Colonography (combo)] Future Scheduled [address] [facility] 00:00:00 [facility] colon (procedure) [code = 232803335] Future Scheduled [address] [facility] 00:00:00 [facility] colon (procedure) [code = 113761452] Future Scheduled 1956 DXA SCAN [code = [facility] 00:00:00 SCAN] [facility] [place] Future Scheduled [address] [facility] 00:00:00 [facility] colon (procedure) [code = 974919274] Future Scheduled [address] [facility] 00:00:00 [facility] colon (procedure) [code = 122562998] Future Scheduled 1956 [facility]] [facility] Future Scheduled [address] [facility] 00:00:00 [facility] breast (procedure) [code = 055501272] Future Scheduled [address] [facility] 00:00:00 (combo) [code = CT Medical C enter Colonography (combo)] Future Scheduled [address] [facility] 00:00:00 [facility] colon (procedure) [code = 640193851] Future Scheduled [address] [facility] 00:00:00 [facility] colon (procedure) [code = 868924820] Future Scheduled 1956 DXA SCAN [code = [facility]XA [facility] 00:00:00 SCAN] [facility] [place] Future Scheduled [address] [facility] 00:00:00 malignant [facility] colon (procedure) [code = 662310875] Future Scheduled [address] [facility] 00:00:00 malignant [facility] colon (procedure) [code = 069368396] Future Scheduled 1956 [facility]] [facility] Future Scheduled [address] [facility] 00:00:00 malignant [facility] breast (procedure) [code = 225205214] Future Scheduled [address] [facility] 00:00:00 (combo) [code = CT Medical C enter Colonography (combo)] Future Scheduled [address] [facility] 00:00:00 [facility] colon (procedure) [code = 484885376] Future Scheduled [address] [facility] 00:00:00 malignant [facility] colon (procedure) [code = 316132763] Future Scheduled 1956 DXA SCAN [code = [facility]XA [facility] 00:00:00 SCAN] [facility] Future Scheduled [address] [facility] 00:00:00 [facility] colon (procedure) [code = 357612850] Future Scheduled [address] [facility] 00:00:00 malignant [facility] colon (procedure) [code = 039332292] Future Scheduled 1956 [facility]] [facility] Future Scheduled [address] [facility] 00:00:00 malignant [facility] breast (procedure) [code = 377022152] Future Scheduled [address] [facility] 00:00:00 (combo) [code = CT Medical C enter Colonography (combo)] Future Scheduled [address] [facility] 00[facility]00:00 malignant [facility] colon (procedure) [code = 590616179] Future Scheduled [address] [facility] 00:00:00 malignant [facility] colon (procedure) [code = 291271834] Future Scheduled 1956 DXA SCAN [code = [facility] 00:00:00 SCAN] [facility] Future Scheduled [address] [facility] 00:00:00 malignant [facility] colon (procedure) [code = 531226977] Future Scheduled [address] [facility] 00:00:00 malignant [facility] colon (procedure) [code = 981727518] Future Scheduled 1956 [facility]] [facility] Future Scheduled [address] [facility] 00:00:00 malignant neoplasm [facility] breast (procedure) [code = 694867195] Future Scheduled [address] [facility] 00:00:00 (combo) [code = CT Medical C enter Colonography (combo)] Future Scheduled [address] [facility] 00:00:00 malignant [facility] colon (procedure) [code = 119430553] Future Scheduled [address] [facility] 00:00:00 malignant ne[facility] colon (procedure) [code = 738271667] Future Scheduled 1956 DXA SCAN [code = [facility]XA [facility] 00:00:00 SCAN] [facility] [place] Future Scheduled [address] [facility] 00[facility]00:00 malignant neoplasm [facility] colon (procedure) [code = 594049527] Future Scheduled [address] [facility] 00:00:00 malignant ne[facility] colon (procedure) [code = 076173713] Future Scheduled 1956 [facility]] [facility] [address] [facility] 00:00:00 malignant neoplasm [facility] breast (procedure) [code = 178868257] Future Scheduled [address] [facility] 00:00:00 malignant neoplasm [facility] breast (procedure) [code = 219055882] Future Scheduled [address] [facility] 00:00:00 (combo) [code = CT Medical C enter Colonography (combo)] Future Scheduled [address] [facility] 00:00:00 malignant [facility]oplasm [facility] colon (procedure) [code = 130490092] Future Scheduled [address] [facility] 00:00:00 malignant neoplasm [facility] colon (procedure) [code = 370460286] Future Scheduled 1956 DXA SCAN [code = [facility]XA [facility] 00:00:00 SCAN] [facility] Future Scheduled [address] [facility] 00:00:00 malignant neoplasm [facility] colon (procedure) [code = 373033738] Future Scheduled [address] [facility] 00:00:00 malignant neoplasm [facility] colon (procedure) [code = 488948399] Future Scheduled 1956 [facility] [address] [facility] 00:00:00 (combo) [code = CT Medical C enter Colonography (combo)] Future Scheduled [address] [facility] 00:00:00 malignant neoplasm [facility] breast (procedure) [code = 176732690] Future Scheduled [address] [facility] 00:00:00 (combo) [code = CT Medical C enter Colonography (combo)] Future Scheduled [address] [facility] 00:00:00 malignant neoplasm [facility] colon (procedure) [code = 232592757] Future Scheduled [address] [facility] 00:00:00 malignant neoplasm [facility] colon (procedure) [code = 813219639] Future Scheduled [address] [facility] 00:00:00 malignant neoplasm [facility] colon (procedure) [code = 661858832] Future Scheduled 1956 DXA SCAN [code = [facility] 00:00:00 SCAN] [facility] [place] Future Scheduled [address] [facility] 00:00:00 malignant neoplasm [facility] colon (procedure) [code = 523042216] Future Scheduled [address] [facility] 00:00:00 malignant neoplasm [facility] colon (procedure) [code = 213844029] Future Scheduled 1956 [facility]] [facility] Future Scheduled [address] [facility] 00:00:00 malignant neoplasm [facility] colon (procedure) [code = 950939034] Future Scheduled [address] [facility] 00:00:00 malignant neoplasm [facility] breast (procedure) [code = 367402234] Future Scheduled [address] [facility] 00:00:00 (combo) [code = CT Medical C enter Colonography (combo)] Future Scheduled [address] [facility] 00:00:00 malignant neoplasm [facility] colon (procedure) [code = 409309799] Future Scheduled [address] [facility] 00:00:00 malignant neoplasm [facility] colon (procedure) [code = 989007904] Future Scheduled 1956 DXA SCAN [code = [facility]XA [facility] 00:00:00 SCAN] [facility] Future Scheduled 1956 DXA SCAN [code = [facility] 00:00:00 SCAN] [facility] [place] Future Scheduled [address] [facility] 00:00:00 malignant neoplasm [facility] colon (procedure) [code = 258604155] Future Scheduled [address] [facility] 00:00:00 malignant neoplasm [facility] colon (procedure) [code = 207851347] Future Scheduled 1956 [facility]] [facility] Future Scheduled [address] [facility] 00:00:00 malignant neoplasm of Medica l [place] colon (procedure) [code = 211218701] Future Scheduled [address] [facility] 00[facility]00[facility]00 [facility] [place] [facility] [code = 176135477] Future Scheduled [address] [facility] 00:00:00 (combo) [code = CT Medical C enter Colonography (combo)] Future Scheduled [address] [facility] 00:00:00 malignant neoplasm of Medica l [place] colon (procedure) [code = 088888619] Future Scheduled [address] [facility] 00:00:00 malignant neoplasm of Medica l [place] colon (procedure) [code = 492132399] Future Scheduled 1956 DXA SCAN [code = [facility] 00:00:00 SCAN] [facility] [place] Future Scheduled [address] [facility] 00:00[facility]00 [facility] [place] [facility]) [code = 907858164] Encounters Start End Encounter Admission Attending Care Care Encounter Source Date/Time Date/Time Type Type Clinicians Facility Department ID 2023-05-08 Outpatient Mora, STLMLC [facility] [id number] Common 15:35:00 [facility] [address] [facility] 2023-04-16 Outpatient Mora, STLMLC [facility] [id number] Common 14:04:01 [facility] [address] [facility] 2023-04-04 Inpatient ER DEARY, [facility] [id number] SLE 03:07:10 USELYN 2023-04-03 Inpatient ER DEARY, [facility] [id number] SLEH 02:32:56 USELYN 2023-04-02 Inpatient ER DEARY, [facility] [id number] SLEH 02:37:04 USELYN 2023-04-01 Inpatient ER DEARY, [facility]H SLEH [id number] SLEH 02:38:03 USELYN 2023-03-31 Inpatient ER DEARY, SLEH SLEH [id number] SLEH 02:13:34 USELYN 2023-03-30 Inpatient ER DEARY, SLEH SLEH [id number] SLEH 00:01:49 USELYN 2023-03-29 Inpatient ER DEARY, SLEH SLEH [id number] SLEH 00:00:59 USELYN 2023-03-28 Inpatient ER JEFRY, SLEH SLEH [id number] SLEH 16:24:16 DRISS 2023-03-28 Inpatient ER YSABEL, SLEH SLEH [id number] SLEH 16:05:38 [facility] 2023-03-28 Inpatient ER DEATOOTIE, SLEH SLEH [id number] SLEH 00:01:01 USELYN 2023-03-27 Inpatient ER DEATOOTIE, SLEH SLEH [id number] SLEH 00:59:45 USELYN 2023-03-27 Inpatient ER JOY, SLEH SLEH [id number] [facility] 00:00[facility]00 [facility] In[facility] ER DEATOOTIE, SLEH SLEH [id number] SLEH 00:34:57 USELYN 2023-03-25 Inpatient ER JEFRY, SLEH SLEH [id number] SLEH 20:31:25 DRISS 2023-03-25 Inpatient ER DEATOOTIE, SLEH SLEH [id number] SLEH 00:26:45 USELYN 2023-03-25 Inpatient ER SLEH SLEH [id number] SLEH 00:00:00 2023-03-24 Inpatient ER SLEH SLEH [id number] SLEH 14:47:44 2023-03-24 Inpatient ER DEARY, SLEH SLEH [id number] SLEH 00:08:53 USELYN 2023-03-23 Inpatient ER GRANT, SLEH SLEH [id number] [facility] 14:53:[facility] ER GRANT, SLEH SLEH [id number] SLE[facility] 12:07:46 [facility] Inpatient ER DEATOOTIE, SLEH SLEH [id number] SLEH 02:45:23 USELYN 2023-03-23 Inpatient ER DEARY, SLEH SLEH [id number] SLEH 00:00:00 USELYN 2023-03-22 Inpatient ER DEARY, SLEH SLEH [id number] SLEH 00:05:06 USELYN 2023-03-21 Inpatient ER DEATOOTIE, SLEH SLEH [id number] SLEH 00:10:50 USELYN 2023-03-20 Inpatient ER CEZAR, SLEH SLEH [id number] SLEH 07:12:06 SUBHASIS 2023-03-20 Inpatient ER ANGY, SLEH SLEH [id number] SLEH 00:00:27 USELYN 2023-03-19 Inpatient ER DEATOOTIE, SLEH SLEH [id number] SLEH 01:16:24 USELYN 2023-03-18 Inpatient ER ANGY, SLEH SLEH [id number] SLEH 00:03:21 USELYN 2023-03-17 Inpatient ER ANGY, SLEH SLEH [id number] SLEH 02:43:51 USELYN 2023-03-16 Inpatient ER JOY, SLEH SLEH [id number] SLEH 14:52:49 IVORY 2023-03-16 Inpatient ER JOY, SLEH SLEH [id number] SLEH 09:06:23 IVORY 2023-03-15 Inpatient ER ANGY, SLEH SLEH [id number] SLEH 19:47:11 USELYN 2023-03-11 Inpatient ER CARTER, SLEH SLEH [id number] SLEH 20:31:51 [place] 2023-03-11 Inpatient ER SLEH SLEH [id number] SLEH 09:59:31 2023-03-11 Inpatient ER SLEH SLEH [id number] SLEH 09:59:20 2023-03-11 Inpatient ER SLEH SLEH [id number] SLEH 09:57:20 2023-03-07 Inpatient ER ARIEL, SLEH SLEH [id number] SLEH 16:02:58 NAWAZISH 2023-03-07 Inpatient ER YANIRA, SLEH SLEH [id number] SLEH 05:10:52 YASHASH 2023-03-06 Inpatient ER YANIRA, SLEH SLEH [id number] SLEH 13:57:19 YASHASH 2023-03-06 Inpatient ER ATASSI, SLEH SLEH [id number] SLEH 08:25:19 CAM 2023-03-06 Inpatient ER ATASSI, SLEH SLEH [id number] SLEH 08:25:10 CAM 2023-03-06 Inpatient ER ARIEL, SLEH SLEH [id number] SLEH 00:51:30 [facility] 2023-01-27 [facility] [id number] [facility] 00:00:00 [facility] 2022-11-13 Outpatient 3 [id number] ENCPL CRD [id number] [facility] 15:05:25 [facility] [facility] 2022-11-08 Outpatient 3 [id number] ENCPL CRD [id number] [facility] 09:30:23 [facility] [place] 2022-11-07 Outpatient 3 [id number] ENCPL REF [id number] [facility] 21:38:12 0[facility] [place] 2022-08-14 Outpatient Mora, [facility] [id number] Common 07:43:01 Dann [address] [facility] 2022-08-04 Outpatient Mora, [facility] [id number] Common 13:26:01 Dann [address] [facility] 2022-08-03 Outpatient Mora, [facility] [id number] Common 14:53:01 [facility] [address] [facility] 2022-07-25 Outpatient Mora, [facility] [id number] Common 15:59:02 Dann [address] [facility] 2022-07-24 Outpatient Mora, [facility] [id number] Common 07:39:00 [facility] [address] [facility] 2022-07-19 Outpatient Mora, [facility] [id number] Common 08:46:01 [facility] [address] [facility] 2022-07-15 Inpatient AR Binu JUSTINE ADMI [id number] [facility] 11:05:[address] 2022-06-20 [facility] [id number] [facility] 00:00:00 [facility] 2022-06-15 Outpatient Mora, STLMLC STLMLC [id number] Common 08:26:02 Dann [address] [facility] 2022-05-25 Outpatient Mora, STLMLC STLMLC [id number] Common 11:25:01 Dann [address] [facility] 2022-02-27 Outpatient Mora, STLMLC STLMLC [id number] Common 10:42:02 Dann [facility] 2022-02-03 Outpatient Rubio, STLMLC STLMLC [id number] Common 12:12:00 Avnee [facility] 2022-01-31 Outpatient Rubio, STLMLC STLMLC [id number] Common 12:38:00 Avnee [facility] 2021-12-02 Outpatient Rubio, STLMLC STLMLC [id number] Common 15:52:01 Avnee [facility] 2021-12-01 Outpatient Rubio, STLMLC STLMLC [id number] Common 10:24:03 Avnee [facility] 2021-11-21 Outpatient Rubio, STLMLC STLMLC [id number] Common 10:05:12 Avnee [facility] 2021-11-08 Outpatient Rubio, STLMLC STLMLC [id number] Common 08:37:01 Avnee [facility] 2021-11-04 Outpatient Rubio, STLMLC STLMLC [id number] Common 14:15:04 Avnee [facility] 2021-10-31 Outpatient Arrieta, Na STLMLC STLMLC [id number] Common 09:40:02 [facility] 2021-08-04 Outpatient 3 [id number] ENCPL REF [id number] [facility] 13:44:15 [facility] [place] 2021-08-04 Outpatient 3 [id number] ENCPL REF [id number] [facility] 13:21:20 1122 [facility] [place] 2021-05-08 Outpatient Estevan MORAES [facility] [id number] Univers 08:53:46 FAUSTO [facility] 2021-05-06 Outpatient Estevan MORAES [facility] ECTOR [id number] Univers 18:47:42 FAUSTO [facility] 2023-05-07 2023-05-07 Outpatient GC_GCBZW_Ka PRIV PRIV [id number] [facility] 00:00:00 00:00:00 diyala_S [id number] Medic al 2023-05-06 2023-05-06 Outpatient GC_GCBZW_Ka PRIV PRIV [id number] [facility] 00:00:00 00:00:00 diyala_S [id number] Medic al 2023-04-24 2023-04-24 [facility] [id number] SLEH 00:00:00 00:00:00 ELÍAS 2023-03-05 2023-04-09 Inpatient ER MING, [facility] Surgery [id number] SLEH 21:46:00 18:51:00 THOR 2023-04-09 2023-04-09 Outpatient SILVIA LYONS [facility] [id number] SLEH 02:25:36 02:25:36 DANIEL 2023-04-08 2023-04-08 Outpatient SILVIA CAMEJO [facility] [id number] SLEH 02:51:49 02:51:49 USELYN 2023-04-07 2023-04-07 [facility] [id number] SLEH 02:09:36 02:09:36 USELYN 2023-04-06 2023-04-06 Outpatient SILVIA CAMEJO [facility] [id number] SLEH 02:53:56 02:53:56 USELYN 2023-04-05 2023-04-05 Outpatient SILVIA CAMEJO [facility] [id number] SLEH 02:55:25 02:55:25 USELYN 2023-03-11 2023-03-11 [facility] [id number] SLEH 07:34:20 23:59:00 2023-03-06 2023-03-06 Outpatient YANIRA SLEKathie SLE [id number] SLEH 00:00:00 00:00:00 SEUN 2022-12-26 2022-12-26 Transition JENNY Yang 1.2.840.114 [id number] Univers 00:00:00 00:00:00 of Care Ivan CHASE 350.1.13.10 [place] [id number] [facility] [address] 2022-12-25 2022-12-25 Patient Doctor ROSELIA 1.2.840.114 [id number] Univers 00:00:00 00:00:00 Secure Msg Unassigned, CINDY 350.1.13.10 ity of [place] [facility] 4.2.7.2.686 [place] as [id number] [facility] [address] 2022-12-14 2022-12-22 Inpatient X [facility] NIMCO [id number] Univers 17:38:00 17:36:00 [place] ity [facility] 2022-12-14 2022-12-22 [facility] Luis Armando Sarahy Silvestre [facility] 1.2.8 40.114 [id number] Univers 17:38:00 17:36:00 Encounter Tavo Nickerson 350.1.13.10 ity of [facility] 4.2.7.2.686 [facility] [id number] Medical 080 Branch 2022-12-21 2022-12-21 Surgery [facility] 1.2.840.114 [id number] Univers 14:20:00 15:56:00 Leyla RIOS 350.1.13.10 ity [place] [id number] [facility] 020 Branch 2022-11-08 2022-11-08 Transition JENNY Ruiz 1.2.840.114 [id number] Univers 00:00:00 00:00:00 of Care Daija CHASE 350.1.13.10 it y of [place] 4.2.7.2.686 [facility] [id number] [facility] [address] 2022-11-04 2022-11-07 Outpatient X RAJNI [facility] NIMCO [id number] Univers 13:24:00 17:38:00 [place] jair of [facility] 2022-11-04 2022-11-07 Emergency Katherin Persaud [facility] 1.2.840 .114 [id number] Univers 13:24:00 17:38:00 [place] Urban GREG 350.1.13.10 ity of [place] 4.2.7.2.686 [facility] [id number] [facility] [address] 2022-08-15 2022-08-15 OFFICE STLMLC STLMLC [id number] Co mmon 00:00:00 00:00:00 VISIT Spirit ESTAB PT - CHI LEVEL 4 [facility] 2022-07-26 2022-07-26 (TEL) STLMLC STLMLC [id number] Co mmon 00:00:00 00:00:00 [facility] 2022-07-26 2022-07-26 OFFICE STLMLC STLMLC [id number] Co mmon 00:00:00 00:00:00 VISIT Spirit ESTAB PT - CHI LEVEL 4 [facility] 2022-07-13 2022-07-13 (TEL) STLMLC STLMLC [id number] Co mmon 00:00:00 00:00:00 [facility] 2022-06-22 2022-07-07 Inpatient UR Adonis Gaytan [facility].01 G001 [id number] [facility] 09:01:00 17:11:00 00 [facility] 2022-06-08 2022-06-08 (TEL) STLMLC STLMLC [id number] Co mmon 00:00:00 00:00:00 [facility] 2022-05-31 2022-05-31 (TEL) STLMLC STLMLC [id number] Co mmon 00:00:00 00:00:00 [facility] 2022-04-26 2022-04-26 [facility], 1.2.840.1 [id number] Methodi 06:55:00 12:55:00 Encounter Jose Keller 02322.1.[address] 3.430.2.7 Hospit a .3.055425 l .8 2022-04-26 2022-04-26 Anesthesia Reji Waldrop 1.2.840.1 1 [id number] Methodi 09:56:00 11:03:00 Event Ce Knutson 74766.1.[address] 3.430.2.7 Hospit a .3.276206 l .8 2022-04-26 2022-04-26 Surgery [facility], 1.2.840.1 [id number] Methodi 09:15:00 10:45:00 Jose Keller 62728.1.1 677 s t 3.430.2.7 Hospit a .3.109005 l .8 2022-04-26 2022-04-26 Travel 1.2.840.1 1.2.865.300 5411 [id number] Methodi 00:00:00 00:00:[address] 3.430.2.7 0.2.7.3.698 Ho spita .3.938255 084.8 l .8 2022-04-24 2022-04-24 Travel 1.2.840.1 1.2.282.828 3072 [id number] Methodi 00:00:00 00:00:[address] 3.430.2.7 0.2.7.3.698 Ho spita .3.713118 084.8 l .8 2022-04-21 2022-04-21 [facility] for [facility], 1.2.840.1 [id number] 21 [id number] Methodi 00:00:00 00:00:00 Surgery Jose Keller 04271.1.1 940 s t 3.430.2.7 Hospit a .3.284506 l .8 2022-04-21 2022-04-21 Orders [facility], 1.2.840.1 [id number] Methodi 00:00:00 00:00:00 Only Jose Keller 83471.1.1 613 s t 3.430.2.7 Hospit a .3.896086 l .8 2022-04-05 2022-04-05 Outpatient R [facility] [id number] Univers 15:00:00 15:00:00 [facility] 2022-03-21 2022-03-21 Office [facility], 1.2.840.1 [id number] [id number] Methodi 11:30:00 12:00:24 Visit Jose LuevanoShaji 23788.1.1 407 s t 3.430.2.7 Hospit a .3.424794 l .8 2022-03-21 2022-03-21 Travel 1.2.840.1 1.2.927.634 6186 [id number] Methodi 00:00:00 00:00:[address] 3.430.2.7 0.2.7.3.698 spita .3.761851 084.8 l .8 2022-03-15 2022-03-15 Outpatient R [facility] [id number] Univers 10:00:00 10:00:00 [facility] 2022-03-14 2022-03-14 (TEL) [facility] [id number] Co mmon 00:00:00 00:00:00 [facility] 2022-03-06 2022-03-06 [facility], 1.2.840.1 [id number] Methodi 05:46:00 12:05:00 Encounter Jose Keller 10888.1.[address] 3.430.2.7 Hospit a .3.894302 l .8 2022-03-06 2022-03-06 Anesthesia Jory Santoro [place] 1.2.840. 1 [id number] Methodi 07:44:00 09:46:00 Event Corrina Cavanaugh 75683.1.[address] 3.430.2.7 Hospit a .3.014365 l .8 2022-03-06 2022-03-06 Surgery [facility], 1.2.840.1 [id number] [id number] Methodi 07:45:00 09:05:00 oJse Keller 17303.1.1 269 s t 3.430.2.7 Hospit a .3.821530 l .8 2022-03-01 2022-03-01 Pre-Admiss [facility], 1.2.840.1 [id number] Methodi 13:00:00 14:00:00 ion Jose Keller 31628.1.1 998 s t Testing 3.430.2.7 Hospit a .3.126042 l .8 2022-03-01 2022-03-01 Travel 1.2.840.1 1.2.477.265 5412 [id number] Methodi 00:00:00 00:00:[address] 3.430.2.7 0.2.7.3.698 Ho spita .3.058654 084.8 l .8 2022-02-27 2022-02-27 SUB ANNUAL [facility] [id number] Common 00:00:00 00:00:00 MCR Spirit WELLNESS - CHI VISIT [facility] 2022-02-27 2022-02-27 OFFICE [facility] [id number] Co mmon 00:00:00 00:00:00 VISIT Spirit ESTAB PT - CHI LEVEL 4 [facility] 2022-02-27 2022-02-27 (TEL) [facility] [id number] Co mmon 00:00:00 00:00:00 Spirit - CHI [facility] 2022-02-07 2022-02-07 Orders Doctor ROSELIA 1.2.840.114 [id number] Univers 00:00:00 00:00:00 Only Unassigned, CINDY 350.1.13.10 ity of [place] [facility] 4.2.7.2.686 [place] [id number] [place] [address] [place] 2022-02-02 2022-02-02 (TEL) [facility] [id number] Co mmon 00:00:00 00:00:00 [facility] 2022-01-31 2022-01-31 Travel 1.2.840.1 1.2.200.586 6695 [id number] Methodi 00:00:00 00:00:[address] 3.430.2.7 0.2.7.3.698 Ho spita .3.841516 084.8 l .8 2022-01-27 2022-01-27 (TEL) STLMLC STL[facility] [id number] Co mmon 00:00:00 00:00:00 [facility] 2021-12-30 2021-12-30 (TEL) STLMLC STLMLC [id number] Co mmon 00:00:00 00:00:00 [facility] 2021-12-29 2021-12-29 (TEL) STLMLC STLMLC [id number] Co mmon 00:00:00 00:00:00 [facility] 2021-12-19 2021-12-19 (TEL) STLMLC STLMLC [id number] Co mmon 00:00:00 00:00:00 [facility] 2021-12-13 2021-12-13 (TEL) STLMLC STLMLC [id number] Co mmon 00:00:00 00:00:00 [facility] 2021-12-12 2021-12-12 Pre-Admiss Eugenio, 1.2.840.1 [id number] Methodi 15:00:00 16:00:00 isabelle Jose E. 45484.1.1 317 s t Testing 3.430.2.7 Hospit a .3.353620 l .8 2021-12-12 2021-12-12 Travel 1.2.840.1 1.2.556.590 0080 043216 Methodi 00:00:00 00:00:[address] 3.430.2.7 0.2.7.3.698 Ho spita .3.675575 084.8 l .8 2021-12-08 2021-12-08 (TEL) STLMLC STLMLC [id number] Co mmon 00:00:00 00:00:00 [facility] 2021-12-01 2021-12-01 (TEL) STLMLC STLMLC [id number] Co mmon 00:00:00 00:00:00 [facility] 2021-11-30 2021-11-30 (TEL) STLMLC STLMLC [id number] Co mmon 00:00:00 00:00:00 [facility] 2021-11-25 2021-11-25 (TEL) STLMLC STLMLC [id number] Co mmon 00:00:00 00:00:00 [facility] 2021-11-21 2021-11-21 (TEL) STLMLC STLMLC [id number] Co mmon 00:00:00 00:00:00 [facility] 2021-11-18 2021-11-18 (TEL) STLMLC STLMLC [id number] Co mmon 00:00:00 00:00:00 [facility] 2021-11-15 2021-11-15 Office [place], 1.2.840.1 [id number] 783 [id number] Methodi 13:00:00 14:01:57 Visit Jose Keller 78180.1.1 465 s t 3.430.2.7 Hospit a .3.201102 l .8 2021-11-15 2021-11-15 Prep for Allen, 1.2.840.1 [id number] 89255 46786 Methodi 00:00:00 00:00:00 Surgery Funmi Sarabia 47500.1.[address] 3.430.2.7 Hospit a .3.459341 l .8 2021-11-15 2021-11-15 Travel 1.2.840.1 1.2.945.802 5294 957203 Methodi 00:00:00 00:00:[address] 3.430.2.7 0.2.7.3.698 Ho spita .3.610746 084.8 l .8 2021-11-15 2021-11-15 (TEL) STLMLC STLMLC [id number] Co mmon 00:00:00 00:00:00 [facility] 2021-11-14 2021-11-14 (TEL) STLMLC STLMLC [id number] Co mmon 00:00:00 00:00:00 [facility] 2021-11-04 2021-11-04 (TEL) STLMLC STLMLC [id number] Co mmon 00:00:00 00:00:00 [facility] 2021-10-31 2021-10-31 (TEL) STLMLC STLMLC [id number] Co mmon 00:00:00 00:00:00 [facility] 2021-10-20 2021-10-20 Telephone Stephane, 1.2.840.1 [id number] 2100 [id number] Methodi 00:00:00 00:00:[address] 3.430.2.7 Hospit a .3.821090 l .8 2021-10-05 2021-10-05 Documentat Mas, 1.2.840.1 [id number] 21 [id number] Methodi 00:00:00 00:00:00 [address] Ortiz [address]37[address].1.[address] 3.430.2.7 Hospit a .3.849494 l .8 2021-09-22 2021-09-22 Travel 1.2.840.1 1.2.545.086 7810 801149 Methodi 00:00:00 00:00:[address] 3.430.2.7 0.2.7.3.698 Ho spita .3.962950 084.8 l .8 2021-08-23 2021-08-23 Ambulatory nullFlavo MNA 72567 94743 Memoria 14:15:00 14:15:00 Pre-Reg r Neurology 06 l Estelle Saucedo 2021-08-23 2021-08-23 Ambulatory nullFlavo MNA [id number] 09030 Memoria 14:15:00 14:15:00 Pre-Reg r Neurology 06 l Estelle Saucedo 2021-08-23 2021-08-23 Outpatient MHIE IE [id number] Memoria 08:15:00 08:15:00 06 josy Saucedo 2021-08-23 2021-08-23 [facility] [id number] 08:15:00 08:15:00 Farhan Herminia Don 2021-07-12 2021-07-12 Ambulatory nullFlavo MNA [id number] [id number] Memoria 14:15:00 14:15:00 Pre-Reg r Neurology 05 l Estelle Saucedo 2021-07-12 2021-07-12 Ambulatory nullFlavo MNA [id number] Memoria 14:15:00 14:15:00 Pre-Reg r Neurology 05 l Estelle Saucedo 2021-07-12 2021-07-12 [facility] [id number] 08:15:00 08:15:00 Farhan Mela Don 2021-06-14 2021-06-14 Telephone Courtney, Michael.2.840.1 [id number] Methodi 00:00:00 00:00:[address] 3.430.2.7 Hospit a .3.939229 l .8 2021-06-01 2021-06-01 Outpatient MHIE IE [id number] Memoria 09:00:00 09:00:00 05 josy Saucedo 2021-05-19 2021-05-19 Ambulatory nullFlavo MNA [id number] Memoria 14:15:00 14:15:00 Pre-Reg r Neurology 04 josy Saucedo 2021-05-19 2021-05-19 Ambulatory nullFlavo MNA [id number] Memoria 14:15:00 14:15:00 Pre-Reg r Neurology 04 l Estelle Saucedo 2021-05-19 2021-05-19 Outpatient CORWIN Michel [facility]CH[facility] [id number] 08:15:00 08:15:00 Farhan 04 Arian 2021-05-10 2021-05-10 Outpatient MHIE MHIE [id number] Memoria 15:45:00 15:45:00 04 josy Saucedo 2021-03-31 2021-03-31 Ambulatory nullFlavo MNA [id number] Memoria 13:15:00 13:15:00 Pre-Reg r Neurology 03 l Estelle Saucedo 2021-03-31 2021-03-31 Ambulatory nullFlavo MNA [id number] [id number] Memoria 13:15:00 13:15:00 Pre-Reg r Neurology 03 l Estelle Saucedo 2021-03-31 2021-03-31 Outpatient MHIE MHIE [id number] Memoria 08:15:00 08:15:00 03 josy Saucedo 2021-03-31 2021-03-31 Outpatient CORWIN Michel [facility] [id number] 08:15:00 08:15:00 Farhan 03 Arian 2021-02-23 2021-02-24 Outpatient nullFlavo MNA [id number] Memoria 20:00:00 04:59:59 r Neurology 02 josy Saucedo 2021-02-23 2021-02-24 Outpatient nullFlavo MNA [id number] Memoria 20:00:00 04:59:59 r Neurology 02 josy Saucedo 2021-02-23 2021-02-23 [id number] 15:00:00 23:59:59 Farhan Laurie Don 2021-02-23 2021-02-23 Outpatient MHIE MHIE [id number] Memoria 15:00:00 15:00:00 02 josy Lewis 2020-10-14 2020-10-14 Surgery [facility] 1.2.840.114 [id number] 08:34:00 09:10:00 [place] 350.1.13.10 [place] 4.2.7.2.686 Surgical [id number] [place] [address] 2020-10-14 2020-10-14 Surgery Aleisha, [facility] 1.2.840.114 [id number] [facility] [place] 08:34:00 09:10:00 Fausto Greg 350.1.13.10 i [place] [id number] [facility] [address] 2020-10-12 2020-10-12 Nursery Manager Jyoti, [facility] 1.2.840.114 [id number] 11:40:06 11:55:06 Visit Lab Main [place] 350.1.13.10 [place] 4.2.7.2.686 Professio [id number] [address] 2020-10-12 2020-10-12 Nursery Manager Jyoti, [facility] Lab Main [facility] 1.2.8 40.114 [id number] [facility] [place] 11:40:06 11:55:06 Visit Fausto Moraes [place] 350.1.1 3.10 [place] Profess[place] [id number] Pa dical [address] 2020-10-12 2020-10-12 Laboratory Only, [facility] 1.2.840.114 [id number] 11:34:36 11:49:36 Only Test [place] 350.1.13.10 [place] 4.2.7.2.686 [place] [id number] [facility] 2020-10-12 2020-10-12 Laboratory Only, [facility] Test [place] 1.2.840. 114 [id number] [facility] [place] 11:34:36 11:49:36 Only Fausto Moraes 350.1.1 3.10 [place] [id number] [address] 2020-10-12 2020-10-12 Outpatient R ALEISHA [facility] [id number] Univers 10:45:00 10:45:00 FAUSTO adam of [facility] 2020-10-12 2020-10-12 Orders Doctor VELOZ 1.2.840.114 [id number] 00:00:00 00:00:00 Only Unassigned, CINDY 350.1.13.10 [place] [facility] 4.2.7.2.686 [id number] 009 2020-10-12 2020-10-12 Orders Doctor ROSELIA 1.2.840.114 [id number] Univers 00:00:00 00:00:00 Only Unassigned, CINDY 350.1.13.10 it[place] [facility] 4.2.7.2.686 [place] [id number] [facility] 00[address] [place] 2020-05-13 2020-05-14 Outpatient SUSAN [facility]ITE [facility] 021 [id number] [place] 00:00:00 00:00:[address] 2020-05-11 2020-05-11 Outpatient AMY [facility] [id number] [place] 00:00:00 00:00:[address] 2020-04-01 2020-04-01 [facility] 1.2.840.114 [id number] 06:36:00 10:10:00 Encounter Fausto Rios 350.1.13.10 [place] 4.2.7.2.686 Surgical [id number] [place] [address] 2020-04-01 2020-04-01 [facility] 1.2.840.114 [id number] [facility] [place] 06:36:00 10:10:00 Encounter Fausto Rios 350.1.13.10 [place] [id number] [facility] 071 [place] 2020-04-01 2020-04-01 [facility] 1.2.840.11 4 [id number] 08:01:00 08:33:00 [facility] 350.1.13.10 [place] 4.2.7.2.686 Surgical [id number] [place] [address] 2020-04-01 2020-04-01 Anesthesia Ralph Christensen [facility] 1.2.840.11 4 [id number] [facility] [place] 08:01:00 08:33:00 [facility] 350.1.13.10 [place]2.[place] [id number] [address] 2020-03-31 2020-03-31 [facility] [id number] Univers 09:30:00 09:30:00 FAUSTO itagus [facility] 2020-03-30 2020-03-30 Outpatient R [facility] [id number] Univers 12:45:00 12:45:00 ity [facility] 2020-03-30 2020-03-30 Laboratory Only, Adc Test [facility] 1.2.840. 114 [id number] Univers 11:17:56 11:32:56 Only Fausto Moraes 350.1.1 3.10 [place].2.[place] [id number] [address] 2020-03-30 2020-03-30 Orders Doctor ROSELIA 1.2.840.114 [id number] Univers 00:00:00 00:00:00 Only Unassigned, CINDY 350.1.13.10 [facility] 4.2.7.2.686 [place] [id number] [address] 2020-03-25 2020-03-25 [facility] 2100 [id number] [place] 00:00:00 00:00:00 IMRAN [address] 2020-03-23 2020-03-23 Nursery Manager Jyoti, Adc Lab Main [facility] 1.2.8 40.114 [id number] Univers 15:51:10 16:06:10 Visit Fausto Moraes 350.1.1 3.10 ity of [place].2.[place] [facility] [id number] Pa dic[address] 2020-03-23 2020-03-23 Outpatient R ALEISHA [facility] [id number] Univers 16:00:00 16:00:00 FAUSTO adam [facility] 2020-03-23 2020-03-23 Outpatient AMY [facility] 2100 [id number] [place] 00:00:00 00:00:00 IMRAN [address] 2020-03-23 2020-03-23 Outpatient MODESTA [facility] [id number] [place] 00:00:00 00:00:00 KI, [address] Results Test Description Test Time Test Comments Results Result Sour e Comments IR TUNNELED 2023-04-09 CATHETER 4 INSERTION 09:25:24 [facility] : 1955 Sex: F Tunneled dialysis catheter insertion, . History: Renal failure. Modality: Sonography and fluoroscopy. Sedation: Not administered.Telephone Surveyor: Ricky Mora M.D.Logistics System Engineer: Dr. Tomlinson. Approach: Right internal jugular vein [...] the needle into the right atrium. A4 Nepali micropuncture sheath was placed and a 0.035 [...] and fluoroscopic guidance. Electronically Signed By: Ricky Mora05/01/2023 09:27 CDTWorkstation Name: [id number] POCT-GLUCOSE METER 2023-04-09 18:36:17 Test Item Value Reference Range Interpretation Comme nts POC-GLUCOSE METER (Bugsnag) 77 mg/dL 70-110 : TESTED AT [facility] [address] [place] [address] (test code = 1538) [facility], [address]: Coding Quality Analyst/Techni patricia ID = [id number] for [place] POCT-GLUCOSE [id number] 14:12:17 Test Item Value Reference Range Interpretation Comments POC-GLUCOSE METER 113 mg/dL 70-110 H : TESTED A T [facility] 67[address] ([facility]) (test code = SARMAD Barreto [facility], 1538) [address]: Coding Quality Analyst/Techni patricia ID = [id number] for JORDAN DE LA GARZA XR CHEST 1 VIEW PORTABLE / [id number] 09:31:38 [facility] 1955 Sex: FXR CHEST 1 VIEW PORTABLE / BEDSIDEINDICATION: s/p ACB surgeryCOMPARISON: Prior day's examFINDINGS: Portable frontal view of the chest. IMPRESSION:Support Lines: No significant change. Lungs and pleura: Unchanged airspace and pleural opacities. Nopneumothorax.Heart and mediastinum: Stable contours. Additional findings: None.Electronically Signed By: Keyon Ortega04/09/2023 09:33 CDTWorkstation Name: [id number] METABOLIC [id number] 05:44:14 Test Item Value Reference Range Interpretation [...] not appl icable for dialysis patien ts Coding Quality Analyst ID - JAKE [id number] 05:29:51 Test Item Value Reference Range Interpretation Comments PHOSPHORUS (BEAKER) (test code = 4.4 mg/dL 2.3-4.7 604) Coding Quality Analyst ID - JAKE [id number] 05:29:50 Test Item Value Reference Range Interpretation Comments MAGNESIUM (BEAKER) (test code = 1.6 mg/dL 1.6-2.6 627) Coding Quality Analyst ID - JAKE CRESPO SATURATION, [id number] 04:46:14 Test Item Value Reference Range Interpretation Comments O2 SATURATION (MEASURED) (BEAKER) 96.4 % (test code = 1455) [id number] 04:38:50 Test Item Value Reference Range Interpretation [...] mechanical heart valves.CBC W/PLT COUNT & AUTO [id number] 04:34:56 Test Item Value Reference Range Interpretation [...] PERCENT (BEAKER) (test code = 2801) POCT-GLUCOSE [id number] 21:32:39 Test Item Value Reference Range Interpretation Comments POC-GLUCOSE METER 70 mg/dL 70-110 : TESTED A T [facility] 6720 (BEAKER) (test code [facility], = 1538) [address]: Coding Quality Analyst/Techni patricia ID = [id number] for Ezmagdiel , Natalia POCT-GLUCOSE [id number] 17:21:56 Test Item Value Reference Range Interpretation Comments POC-GLUCOSE METER 203 mg/dL 70-110 H : TESTED A T [facility] 6720 (BEAKER) (test code = [facility], 1538) [address]: Coding Quality Analyst/Techni patricia ID = [id number] for OR ALESSIO AGUILAR POCT-GLUCOSE [id number] 11:59:04 Test Item Value Reference Range Interpretation Comments POC-GLUCOSE METER 274 mg/dL 70-110 H : TESTED A T [facility] 6720 (BEAKER) (test code = [facility], 1538) 91345: Coding Quality Analyst/Techni patricia ID = [id number] for OR PHEY, ALESSIO POCT-GLUCOSE [id number] 07:55:45 Test Item Value Reference Range Interpretation Comments POC-GLUCOSE METER 147 mg/dL 70-110 H : TESTED A T [facility] 67[address] (BEAKER) (test code = [place], 1538) 05365: Coding Quality Analyst/Techni patricia ID = [id number] for OR PHEY, ALESSIO XR CHEST 1 VIEW PORTABLE / [id number] 06:48:27 [facility] COLLEEN : 1955 Sex: FCLINICAL INDICATION: s/p ACB surgeryComparison: 04/07/2023The cardiomediastinal contours are stable.Centralpulmonary vascular congestion and bilateral parenchymalopacities are similar to previous.There is nopneumothorax.A tunneled right IJ dialysis catheter remains in place.Electronically Signed By: Cristi carpenter 06:50 CDTWorkstation Name: [id number] SATURATION, MEASURED 2023-04-08 05:45:30 Test Item Value Reference Range Interpretation Comments O2 SATURATION (MEASURED) (BEAKER) 97.7 % (test code = 1455) BASIC METABOLIC [id number] 05:19:11 Test Item Value Reference Range Interpretation [...] not appl icable for dialysis patien ts Coding Quality Analyst ID - [id number] 05:16:31 Test Item Value Reference Range Interpretation Comments MAGNESIUM (BEAKER) (test code = 1.6 mg/dL 1.6-2.6 627) Coding Quality Analyst ID - [id number] 05:16:31 Test Item Value Reference Range Interpretation Comments PHOSPHORUS (BEAKER) (test code = 4.3 mg/dL 2.3-4.7 604) Coding Quality Analyst ID - ADMINPT/[id number] 04:59:38 Test Item Value Reference Range Interpretation [...] mechanical heart valves.CBC W/PLT COUNT & AUTO [id number] 04:58:03 Test Item Value Reference Range Interpretation [...] PERCENT (BEAKER) (test code = 2801) POCT-GLUCOSE [id number] 18:00:35 Test Item Value Reference Range Interpretation Comments POC-GLUCOSE METER 216 mg/dL 70-110 H : TESTED A T [facility] 6720 ([facility]) (test code = [facility], 1538) 05907: Coding Quality Analyst/Techni patricia ID = [id number] for Fauzia Carter POCT-GLUCOSE [id number] 11:35:05 Test Item Value Reference Range Interpretation Comments POC-GLUCOSE METER 184 mg/dL 70-110 H : TESTED A T [facility] 6720 ([facility]) (test code = [facility], 1538) 68299: Coding Quality Analyst/Techni patricia ID = [id number] for Juan DYSON POCT-GLUCOSE [id number] 09:03:16 Test Item Value Reference Range Interpretation Comments POC-GLUCOSE METER 165 mg/dL 70-110 H : TESTED A T [facility] 6720 (BEAKER) (test code = [facility], 1538) 09073: Coding Quality Analyst/Techni patricia ID = [id number] for Juan DYSONA XR CHEST 1 VIEW PORTABLE / [id number] 08:20:21 [facility] COL[place]EN : 1955 Sex: FXR CHEST 1 VIEW PORTABLE / BEDSIDEINDICATION: s/p ACB surgeryCOMPARISON: Prior day's examFINDINGS: Portable frontal view of the chest. IMPRESSION:Support Lines: Central catheter tip overlies the atriocaval junction. Lungs and pleura: Scattered bilateral interstitial thickening is grosslyunchanged suggestiveof minimal volume overload. No significantpneumothorax.Heart and mediastinum: Stable contours. Stable surgical changes.Additional findings: None.Electronically Signed By: Taya Penkpwew11/30/2023 08:22CDTWorkstation Name: [id number] METABOLIC [id number] 05:25:13 Test Item Value Reference Range Interpretation [...] not appl icable for dialysis patien ts Coding Quality Analyst ID - [id number] 05:23:31 Test Item Value Reference Range Interpretation Comments MAGNESIUM (BEAKER) (test code = 1.6 mg/dL 1.6-2.6 627) Coding Quality Analyst ID - [id number] 05:23:31 Test Item Value Reference Range Interpretation Comments PHOSPHORUS (BEAKER) (test code = 3.5 mg/dL 2.3-4.7 604) Coding Quality Analyst ID - ADMINPT/[id number] 04:57:54 Test Item Value Reference Range Interpretation [...] mechanical heart valves.CBC W/PLT COUNT & AUTO [id number] 04:48:30 Test Item Value Reference Range Interpretation [...] (BEAKER) (test code = 2801) OXYGEN SATURATION, [id number] 04:39:54 Test Item Value Reference Range Interpretation Comments O2 SATURATION (MEASURED) (BEAKER) 85.1 % (test code = 1455) POCT-GLUCOSE [id number] 22:16:54 Test Item Value Reference Range Interpretation Comments POC-GLUCOSE METER 90 mg/dL 70-110 : TESTED A T [facility] 6720 (BEAKER) (test code = [facility], 153) 19280: Coding Quality Analyst/Techni patricia ID = [id number] for MICHAEL ANDERSON POCT-GLUCOSE [id number] 21:40:51 Test Item Value Reference Range Interpretation Comments POC-GLUCOSE METER 54 mg/dL 70-110 L : TESTED A T [facility] 6720 (BEAKER) (test code = [facility], 1538) 22470: Coding Quality Analyst/Techni patricia ID = [id number] for MICHAEL ANDERSON POCT-GLUCOSE [id number] 21:24:48 Test Item Value Reference Range Interpretation Comments POC-GLUCOSE METER 46 mg/dL 70-110 L : TESTED A T [facility] 6720 (BEAKER) (test code = [facility], 1538) 28362: Coding Quality Analyst/Techni patricia ID = [id number] for MICHAEL ANDERSON POCT-GLUCOSE [id number] 17:55:47 Test Item Value Reference Range Interpretation Comments POC-GLUCOSE METER 275 mg/dL 70-110 H : TESTED A T [facility] 6720 (BEAKER) (test code = [facility], 153) 44909: Coding Quality Analyst/Techni patricia ID = [id number] for OR ALESSIO AGUILAR HEPATITIS B CORE ANTIBODY, [id number] 15:32:21 Test Item Value Reference Range Interpretation Comments HEPATITIS B CORE TOTAL ANTIBODY Nonreactive Nonreactive (BEAKER) (test code = 497) Coding Quality Analyst ID - ADMINHEPATITIS B CORE ANTIBODY, [id number] 15:32:20 Test Item Value Reference Range Interpretation Comments HEPATITIS B CORE IGM ANTIBODY Nonreactive Nonreactive (BEAKER) (test code = 645) Coding Quality Analyst ID - ADMINHEPATITIS B SURFACE [id number] 15:32:19 Test Item Value Reference Range Interpretation Comments HEPATITIS B SURFACE ANTIGEN (2) Nonreactive Nonreactive (BEAKER) (test code = 2585) Specimen is considered negative for HBsAg.POCT-GLUCOSE [id number] 12:42:13 Test Item Value Reference Range Interpretation Comments POC-GLUCOSE METER 145 mg/dL 70-110 H : TESTED A T [facility] 6720 (BEAKER) (test code = [facility], 153) 04850: Coding Quality Analyst/Techni patricia ID = [id number] for OR ALESSIO AGUILAR POCT-GLUCOSE [id number] 11:26:37 Test Item Value Reference Range Interpretation Comments POC-GLUCOSE METER 119 mg/dL 70-110 H : TESTED A T [facility] 6720 (BEAKER) (test code = [facility], 1538) 05358: Coding Quality Analyst/Techni patricia ID = [id number] for Tsang Waylon [employer]uffmania XR CHEST 1 VIEW PORTABLE / [id number] 08:39:04 [facility] : 1955 Sex: FXR [...] Signed By: Garret Morel04/06/2023 08:41 CDTWorkstation Name: [id number] 08:12:38 Test Item Value Reference Range Interpretation Comments POC-GLUCOSE METER 199 mg/dL 70-110 H : TESTED A T [facility] 6720 (BEAKER) (test code = [facility], 1538) 85299: Coding Quality Analyst/Techni patricia ID = [id number] for OR ALESSIO AGUILAR BASIC METABOLIC [id number] 05:31:29 Test Item Value Reference Range Interpretation [...] not appl icable for dialysis patien ts Coding Quality Analyst ID - JAKE [id number] 05:28:25 Test Item Value Reference Range Interpretation Comments MAGNESIUM (BEAKER) (test code = 1.7 mg/dL 1.6-2.6 627) Coding Quality Analyst AINSLEY JOSEPH [id number] 05:28:25 Test Item Value Reference Range Interpretation Comments PHOSPHORUS (BEAKER) (test code = 3.1 mg/dL 2.3-4.7 604) Coding Quality Analyst AINSLEY JOSEPH [id number] 05:07:14 Test Item Value Reference Range Interpretation [...] mechanical heart valves.CBC W/PLT COUNT & AUTO [id number] 05:03:56 Test Item Value Reference Range Interpretation [...] (BEAKER) (test code = 2801) OXYGEN SATURATION, [id number] 04:54:52 Test Item Value Reference Range Interpretation Comments O2 SATURATION (MEASURED) (BEAKER) 86.1 % (test code = 1455) POCT-GLUCOSE [id number] 21:09:55 Test Item Value Reference Range Interpretation Comments POC-GLUCOSE METER 128 mg/dL 70-110 H : TESTED A T [facility] 6720 (BEAKER) (test code = [facility], 1538) 90362: Coding Quality Analyst/Techni patricia ID = [id number] for KLARISSA DICKEY POCT-GLUCOSE [id number] 12:22:40 Test Item Value Reference Range Interpretation Comments POC-GLUCOSE METER 210 mg/dL 70-110 H : TESTED A T [facility] 6720 (BEAKER) (test code = [facility] [place] [facility], 1538) 31148: Coding Quality Analyst/Techni patricia ID = [id number] for JORDAN DE LA GARZA POCT-GLUCOSE [id number] 07:41:36 Test Item Value Reference Range Interpretation Comments POC-GLUCOSE METER 120 mg/dL 70-110 H : TESTED A T [facility] 6720 (BEAKER) (test code = [facility] [place] [facility], 1538) 54929: Coding Quality Analyst/Techni patricia ID = [id number] for JORDAN DE LA GARZA XR CHEST 1 VIEW PORTABLE / [id number] 07:02:52 [facility] 1955 Sex: FXR [...] Signed By: Garret Morel04/05/2023 07:04 CDTWorkstation Name: [id number] METABOLIC [id number] 06:07:28 Test Item Value Reference Range Interpretation [...] not appl icable for dialysis patien ts Coding Quality Analyst ID - [id number] 06:02:36 Test Item Value Reference Range Interpretation Comments MAGNESIUM (BEAKER) (test code = 1.8 mg/dL 1.6-2.6 627) Coding Quality Analyst ID - [id number] 06:02:36 Test Item Value Reference Range Interpretation Comments PHOSPHORUS (BEAKER) (test code = 4.7 mg/dL 2.3-4.7 604) Coding Quality Analyst ID - ADMINOXYGEN SATURATION, [id number] 04:41:31 Test Item Value Reference Range Interpretation Comments O2 SATURATION (MEASURED) (BEAKER) 91.8 % (test code = 1455) CBC W/PLT COUNT & AUTO [id number] 04:40:01 Test Item Value Reference Range Interpretation [...] 0.00-1.00 PERCENT (BEAKER) (test code = 2801) [id number] 04:28:23 Test Item Value Reference Range Interpretation [...] 2.5-3.5 for patients with mechanical heart valves.POCT-GLUCOSE [id number] 22:06:47 Test Item Value Reference Range Interpretation Comments POC-GLUCOSE METER 221 mg/dL 70-110 H : TESTED A T [facility] 6720 ([facility]) (test code = [facility], 1538) 80264: Coding Quality Analyst/Techni patricia ID = [id number] for Gordon Felixfred POCT-GLUCOSE [id number] 17:25:55 Test Item Value Reference Range Interpretation Comments POC-GLUCOSE METER 135 mg/dL 70-110 H : TESTED A T [facility] 6720 (BEAKER) (test code [facility], = 1538) 08458: Coding Quality Analyst/Techni patricia ID = [id number] for Ric rs, Kira POCT-GLUCOSE [id number] 12:25:14 Test Item Value Reference Range Interpretation Comments POC-GLUCOSE METER 276 mg/dL 70-110 H : TESTED A T [facility] 6720 (BEAKER) (test code [facility], = 1538) 82561: Coding Quality Analyst/Techni patricia ID = [id number] for Ric rs, Kira POCT-GLUCOSE [id number] 08:45:06 Test Item Value Reference Range Interpretation Comments POC-GLUCOSE METER 125 mg/dL 70-110 H : TESTED A T [facility] 6720 (BEAKER) (test code [facility], = 1538) 64522: Coding Quality Analyst/Techni patricia ID = [id number] for Kira Longoria XR CHEST 1 VIEW PORTABLE / [id number] 06:55:01 [facility] COLLEEN : 1955 Sex: FXR [...] By: Garret Newell 04/04/2023 06:57 CDTWorkstation Name: [id number] METABOLIC [id number] 05:14:55 Test Item Value Reference Range Interpretation [...] not appl icable for dialysis patien ts Coding Quality Analyst ID - [id number] 05:03:01 Test Item Value Reference Range Interpretation Comments PHOSPHORUS (BEAKER) (test code = 3.9 mg/dL 2.3-4.7 604) Coding Quality Analyst ID - [id number] 05:03:00 Test Item Value Reference Range Interpretation Comments MAGNESIUM (BEAKER) (test code = 1.8 mg/dL 1.6-2.6 627) Coding Quality Analyst ID - ADMINB-TYPE NATRIURETIC FACTOR (BNP)2023-04-04 05:00:18 Test Item Value Reference Range Interpretation Comments B-TYPE NATRIURETIC PEPTIDE 3091 pg/mL 0-100 H (BEAKER) (test code = 700) Coding Quality Analyst ID - ADMINOXYGEN SATURATION, [id number] 04:53:14 Test Item Value Reference Range Interpretation Comments O2 SATURATION (MEASURED) (BEAKER) 91.0 % (test code = 1455) [id number] 04:50:38 Test Item Value Reference Range Interpretation [...] mechanical heart valves.CBC W/PLT COUNT & AUTO [id number] 04:44:20 Test Item Value Reference Range Interpretation [...] PERCENT (BEAKER) (test code = 2801) POCT-GLUCOSE [id number] 21:11:58 Test Item Value Reference Range Interpretation Comments POC-GLUCOSE METER 101 mg/dL 70-110 : TESTED A T [facility] 6720 (BEAKER) (test code = [facility], [facility]) 67323: Coding Quality Analyst/Techni patricia ID = [id number] for JUSTIN LAGUERRE POCT-GLUCOSE [id number] 18:05:50 Test Item Value Reference Range Interpretation Comments POC-GLUCOSE METER 96 mg/dL 70-110 : TESTED A T [facility] 6720 (BEAKER) (test code = [facility], [facility]) 07019: Coding Quality Analyst/Techni patricia ID = [id number] for ROSELIA MARIAH POCT-GLUCOSE [id number] 18:05:47 Test Item Value Reference Range Interpretation Comments POC-GLUCOSE METER 117 mg/dL 70-110 H : TESTED A T [facility] 6720 (BEAKER) (test code = [facility], [facility]) 10375: Coding Quality Analyst/Techni patricia ID = [id number] for COLLEEN CABRERA, MARIAH POCT-GLUCOSE [id number] 09:13:48 Test Item Value Reference Range Interpretation Comments POC-GLUCOSE METER 134 mg/dL 70-110 H : TESTED A T [facility] 6720 (BEAKER) (test code = [facility], 1538) 15447: Coding Quality Analyst/Techni patricia ID = [id number] for COLLEEN HN, MARIAH XR CHEST 1 VIEW PORTABLE / [id number] 07:19:30 [facility] : 1955 Sex: FXR [...] Signed By: Garret Morel04/03/2023 07:21 CDTWorkstation Name: [id number] [id number] 06:07:29 Test Item Value Reference Range Interpretation Comments POC-GLUCOSE METER 247 mg/dL 70-110 H : TESTED A T [facility] 6720 (BEAKER) (test code [facility], = 1538) 44528: Coding Quality Analyst/Techni patricia ID = [id number] for Kira Longoria POCT-GLUCOSE [id number] 06:06:48 Test Item Value Reference Range Interpretation Comments POC-GLUCOSE METER 228 mg/dL 70-110 H : TESTED A T [facility] 6720 (BEAKER) (test code = [facility], 1538) 29901: Coding Quality Analyst/Techni patricia ID = [id number] for Luke mccarty (contract)[employer] BASIC METABOLIC [id number] 05:38:59 Test Item Value Reference Range Interpretation [...] not appl icable for dialysis patien ts Coding Quality Analyst ID - EOCBC W/PLT COUNT & AUTO [id number] 05:34:10 Test Item Value Reference Range Interpretation [...] 0.00-1.00 PERCENT (BEAKER) (test code = 2801) [id number] 05:26:01 Test Item Value Reference Range Interpretation Comments MAGNESIUM (BEAKER) (test code = 1.7 mg/dL 1.6-2.6 627) Coding Quality Analyst ID - [id number] 05:26:01 Test Item Value Reference Range Interpretation Comments PHOSPHORUS (BEAKER) (test code = 5.1 mg/dL 2.3-4.7 H 604) Coding Quality Analyst ID - EOPT/[id number] 05:09:39 Test Item Value Reference Range Interpretation [...] for patients with mechanical heart valves.OXYGEN SATURATION, [id number] 05:02:16 Test Item Value Reference Range Interpretation Comments O2 SATURATION (MEASURED) (TRAN) 79.5 % (test code = 1455) XR CHEST 1 VIEW PORTABLE / [id number] 23:54:34 [facility] : 1955 Sex: FEXAMINATION: [...] Signed By: Amadou Cee04/02/2023 23:56 CDTWorkstation Name: [id number] METER 2023-04-02 21:27:40 Test Item Value Reference Range Interpretation Comments POC-GLUCOSE METER 93 mg/dL 70-110 : TESTED A T [facility] 6720 (VenturesityAKER) (test code = [facility] [place], 1538) 98994: Coding Quality Analyst/Techni patricia ID = [id number] for KLARISSA HAJI POCT-GLUCOSE [id number] 18:32:05 Test Item Value Reference Range Interpretation Comments POC-GLUCOSE METER 273 mg/dL 70-110 H : TESTED A T [facility] 6720 (Bugsnag) (test code = [facility] [place] [facility], 153) 64438: Coding Quality Analyst/Techni patricia ID = [id number] for COLLEEN HN, MARIAH BUN AND CREATININE [id number] 12:51:19 Test Item Value Reference Range Interpretation Comments BLOOD UREA 54 mg/dL 7-21 H NITROGEN (BEAKER) (test code = 354) CREATININE 5.73 mg/dL 0.57-1.25 H (BEAKER) (test code = 358) BUN/CREAT RATIO 9 For a normal individual on (VenturesityAKER) (test a normal diet , the code = reference inter nahum for the [id number]) mass ratio rang es between 12:1 and 20:1 ( BUN in mg/dL/creatinin e in mg/dL) EGFR (VenturesityAKER) 8 Interpretatio n of eGFR (test code [...] appl icable for dialysis patien ts POCT-GLUCOSE [id number] 12:20:54 Test Item Value Reference Range Interpretation Comments POC-GLUCOSE METER 265 mg/dL 70-110 H : TESTED A T [facility] 6720 (BEFundRazr) (test code = [facility], 153) 73595: Coding Quality Analyst/Techni patricia ID = [id number] for COLLEEN HN, MARIAH POCT-GLUCOSE [id number] 12:20:52 Test Item Value Reference Range Interpretation Comments POC-GLUCOSE METER 126 mg/dL 70-110 H : TESTED A T [facility] 6720 (Bugsnag) (test code = [facility], 1538) 99902: Coding Quality Analyst/Techni patricia ID = [id number] for MARIAH CALDERON POCT-GLUCOSE [id number] 06:56:10 Test Item Value Reference Range Interpretation Comments POC-GLUCOSE METER 167 mg/dL 70-110 H : TESTED A T [facility] 6720 (BEAKER) ([facility], = 1538) 98766: Coding Quality Analyst/Techni patricia ID = [id number] for Kira Longoria [id number] 06:03:17 Test Item Value Reference Range Interpretation Comments FERRITIN (BEAKER) (test code = 1454.96 ng/mL 5.00-275.00 H 361) Coding Quality Analyst ID - BSIRON, TIBC, % SAT. (WITHOUT FERRITIN)2023-04-02 05:41:53 Test Item Value Reference Range Interpretation Comments IRON (BEAKER) (test code = 547) 32.0 ug/dL 40.0-160.0 L TOTAL IRON BINDING CAPACITY 208 ug/dL 250-450 L (BEAKER) (test code = 769) IRON % SATURATION (2) (BEAKER) 15 % 20-55 L (test code = 2590) Coding Quality Analyst ID - BSBASIC METABOLIC [id number] 05:25:25 Test Item Value Reference Range Interpretation [...] not appl icable for dialysis patien ts Coding Quality Analyst ID - [id number] 05:23:24 Test Item Value Reference Range Interpretation Comments PHOSPHORUS (BEAKER) (test code = 4.8 mg/dL 2.3-4.7 H 604) Coding Quality Analyst ID - [id number] 05:23:23 Test Item Value Reference Range Interpretation Comments MAGNESIUM (BEAKER) (test code = 1.7 mg/dL 1.6-2.6 627) Coding Quality Analyst ID - BSVANCOMYCIN LEVEL, [id number] 05:17:20 Test Item Value Reference Range Interpretation Comments VANCOMYCIN RANDOM (BEAKER) (test 17.4 ug/mL code = 523) Reference Range: No NormalsOperator ID - ADMINCBC W/PLT COUNT & AUTO [id number] 05:08:53 Test Item Value Reference Range Interpretation [...] (BEAKER) (test code = 2801) OXYGEN SATURATION, [id number] 04:56:33 Test Item Value Reference Range Interpretation Comments O2 SATURATION (MEASURED) (BEAKER) 92.0 % (test code = 1455) [id number] 04:53:50 Test Item Value Reference Range Interpretation [...] 2.5-3.5 for patients with mechanical heart valves.POCT-GLUCOSE [id number] 23:02:53 Test Item Value Reference Range Interpretation Comments POC-GLUCOSE METER 174 mg/dL 70-110 H : TESTED A T [facility] 6720 (BEAKER) (test code = [facility], 1538) 13829: Coding Quality Analyst/Techni patricia ID = [id number] for Julia Gibbs POCT-GLUCOSE [id number] 17:42:46 Test Item Value Reference Range Interpretation Comments POC-GLUCOSE METER 247 mg/dL 70-110 H : TESTED A T [facility] 6720 (BEAKER) (test code [facility], = 1538) 96704: Coding Quality Analyst/Techni patricia ID = [id number] for Kira Longoria POCT-GLUCOSE [id number] 12:53:12 Test Item Value Reference Range Interpretation Comments POC-GLUCOSE METER 253 mg/dL 70-110 H : TESTED A T [facility] 6720 (BEAKER) (test code [facility], = 1538) 54252: Coding Quality Analyst/Techni patricia ID = [id number] for Kira Longoria XR CHEST 1 VIEW PORTABLE / [id number] 10:34:07 [facility] COLLEEN : 1955 Sex: FCHEST, 1 VIEW.HISTORY: s/p [...] By: Kd Richards MD04/01/2023 10:36 CDTWorkstation Name: [id number] [id number] 07:44:39 Test Item Value Reference Range Interpretation Comments POC-GLUCOSE METER 203 mg/dL 70-110 H : [facility] (BEAKER[facility] (test code [facility], = 1538) 93609: Coding Quality Analyst/Techni patricia ID = [id number] for Kira Longoria BASIC METABOLIC [id number] 06:36:23 Test Item Value Reference Range Interpretation [...] not appl icable for dialysis patien ts Coding Quality Analyst ID - [id number] 06:36:15 Test Item Value Reference Range Interpretation Comments PHOSPHORUS (BEAKER) (test code = 3.9 mg/dL 2.3-4.7 604) Coding Quality Analyst ID - [id number] 06:36:14 Test Item Value Reference Range Interpretation Comments MAGNESIUM (BEAKER) (test code = 1.7 mg/dL 1.6-2.6 627) Coding Quality Analyst ID - BSCBC W/PLT COUNT & AUTO [id number] 06:23:52 Test Item Value Reference Range Interpretation [...] GRANULOCYTES-RELATIVE PERCENT (BEAKER) (test code = 2801) [id number] 06:09:26 Test Item Value Reference Range Interpretation [...] for patients with mechanical heart valves.OXYGEN SATURATION, [id number] 05:27:51 Test Item Value Reference Range Interpretation Comments O2 SATURATION (MEASURED) (BEAKER) 88.1 % (test code = 1455) POCT-GLUCOSE [id number] 20:43:26 Test Item Value Reference Range Interpretation Comments POC-GLUCOSE METER 179 mg/dL 70-110 H : TESTED A T [facility] 6720 (BEAKER) (test code = [facility], 1538) 92837: Coding Quality Analyst/Techni patricia ID = [id number] for KLARISSA DICKEY POCT-GLUCOSE [id number] 12:20:48 Test Item Value Reference Range Interpretation Comments POC-GLUCOSE METER 298 mg/dL 70-110 H : TESTED A T [facility] 6720 (BEAKER) ([facility], = 1538) 49995: Coding Quality Analyst/Techni patricia ID = [id number] for Kira Longoria XR CHEST 1 VIEW PORTABLE / [id number] 12:20:02 [facility] : 1955 Sex: FEXAMINATION: [...] Signed By: Odalis Kirkland03/31/2023 12:22 CDTWorkstation Name: [id number] METABOLIC [id number] 05:28:33 Test Item Value Reference Range Interpretation [...] not appl icable for dialysis patien ts Coding Quality Analyst ID - [id number] 05:07:39 Test Item Value Reference Range Interpretation Comments PHOSPHORUS (BEAKER) (test code = 2.3 mg/dL 2.3-4.7 604) Coding Quality Analyst ID - [id number] 05:07:38 Test Item Value Reference Range Interpretation Comments MAGNESIUM (BEAKER) (test code = 1.7 mg/dL 1.6-2.6 627) Coding Quality Analyst ID - BSOXYGEN SATURATION, [id number] 04:55:11 Test Item Value Reference Range Interpretation Comments O2 SATURATION (MEASURED) (BEAKER) 87.8 % (test code = 1455) PT/[id number] 04:49:30 Test Item Value Reference Range Interpretation [...] mechanical heart valves.CBC W/PLT COUNT & AUTO [id number] 04:42:55 Test Item Value Reference Range Interpretation [...] PERCENT (BEAKER) (test code = 2801) POCT-GLUCOSE [id number] 21:51:20 Test Item Value Reference Range Interpretation Comments POC-GLUCOSE METER 136 mg/dL 70-110 H : TESTED A T [facility] 6720 (BEAKER) (test code = [facility], 1538) 67784: Coding Quality Analyst/Techni patricia ID = [id number] for MELONY WETZEL POCT-GLUCOSE [id number] 17:36:25 Test Item Value Reference Range Interpretation Comments POC-GLUCOSE METER 158 mg/dL 70-110 H : TESTED A T [facility] 6720 (BEAKER) (test code [facility], = 1538) 32278: Coding Quality Analyst/Techni patricia ID = [id number] for Ric rs, Kira POCT-GLUCOSE [id number] 13:58:12 Test Item Value Reference Range Interpretation Comments POC-GLUCOSE METER 157 mg/dL 70-110 H : TESTED A T [facility] 6720 (AKER) (test code [facility], = 1538) 58619: Coding Quality Analyst/Techni patricia ID = [id number] for Ric rs, Kira POCT-GLUCOSE [id number] 13:57:08 Test Item Value Reference Range Interpretation Comments POC-GLUCOSE METER 261 mg/dL 70-110 H : TESTED A T [facility] 6720 (BEAKER) (test code = [facility], 1538) 79612: Coding Quality Analyst/Techni patricia ID = [id number] for Dmitry nicole, Isela POCT-GLUCOSE [id number] 13:57:07 Test Item Value Reference Range Interpretation Comments POC-GLUCOSE METER 136 mg/dL 70-110 H : TESTED A T [facility] 6720 (BEAKER) (test code = [facility], 1538) 40404: Coding Quality Analyst/Techni patricia ID = [id number] for Luke mccarty (contract)[employer] XR CHEST 1 VIEW PORTABLE / [id number] 07:22:39 [facility] : 1955 Sex: FEXAM:XR CHEST [...] Signed By: Oleksandr Benedict03/30/2023 07:24 CDTWorkstation Name: [id number] METABOLIC PANEL 2023-03-30 07:18:59 Test Item Value [...] not appl icable for dialysis patien ts Coding Quality Analyst ID - [id number] 07:18:35 Test Item Value Reference Range Interpretation Comments MAGNESIUM (BEAKER) (test code = 1.8 mg/dL 1.6-2.6 627) Coding Quality Analyst ID - [id number] 07:18:35 Test Item Value Reference Range Interpretation Comments PHOSPHORUS (BEAKER) (test code = 4.3 mg/dL 2.3-4.7 604) Coding Quality Analyst ID - [id number] 06:56:11 Test Item Value Reference Range Interpretation [...] mechanical heart valves.CBC W/PLT COUNT & AUTO [id number] 06:54:13 Test Item Value Reference Range Interpretation [...] (BEAKER) (test code = 2801) OXYGEN SATURATION, [id number] 06:31:46 Test Item Value Reference Range Interpretation Comments O2 SATURATION (MEASURED) (BEAKER) 77.7 % (test code = 1455) POCT-GLUCOSE [id number] 06:26:00 Test Item Value Reference Range Interpretation Comments POC-GLUCOSE METER 182 mg/dL 70-110 H : TESTED A T [facility] 6720 (BEAKER) (test code = [facility] [place], 1538) 00920: Coding Quality Analyst/Techni patricia ID = [id number] for Prosper Galvez POCT-GLUCOSE [id number] 01:14:34 Test Item Value Reference Range Interpretation Comments POC-GLUCOSE METER 165 mg/dL 70-110 H : TESTED A T [facility] 6720 (BEAKER) (test code = [facility], 1538) 44401: Coding Quality Analyst/Techni patricia ID = [id number] for DO CHACONOctober POCT-GLUCOSE [id number] 00:00:21 Test Item Value Reference Range Interpretation Comments POC-GLUCOSE METER 142 mg/dL 70-110 H : TESTED A T [facility] 6720 (BEAKER) (test code = [facility] [place] [facility], 1538) 88364: Coding Quality Analyst/Techni patricia ID = [id number] for DO CHACONOctober COMPREHENSIVE METABOLIC [id number] 22:40:52 Test Item Value Reference Range Interpretation [...] 353) ALT (SGPT) < U/L 6-55 L (BEFundRazr) (test code = 347) EGFR ([facility]) 11 Interpretatio n of eGFR (test code [...] not appl icable for dialysis patien ts Coding Quality Analyst ID - ADMINPOCT-GLUCOSE [id number] 22:25:49 Test Item Value Reference Range Interpretation Comments POC-GLUCOSE METER 61 mg/dL 70-110 L : TESTED A T [facility] 6720 (Bugsnag) (test code = [facility], 1538) 65173: Coding Quality Analyst/Techni patricia ID = [id number] for Take i, Kunihiro POCT-GLUCOSE [id number] 22:05:54 Test Item Value Reference Range Interpretation Comments POC-GLUCOSE METER 61 mg/dL 70-110 L : TESTED A T [facility] 6720 (Bugsnag) (test code = [facility], 1538) 24877: Coding Quality Analyst/Techni patricia ID = [id number] for Take i, Kunihiro POCT-GLUCOSE [id number] 21:38:12 Test Item Value Reference Range Interpretation Comments POC-GLUCOSE METER 52 mg/dL 70-110 L : TESTED A T [facility] 6720 (Bugsnag) (test code = [facility], 1538) 89584: Coding Quality Analyst/Techni patricia ID = [id number] for Take i, Kunihiro MISCELLANEOUS LAB [id number] 16:02:00 Test Item Value Reference Range Interpretation Comments SCAN RESULT (test code = See scanned report. [id number]) OXYGEN SATURATION, [id number] 15:33:00 Test Item Value Reference Range Interpretation Comments O2 SATURATION (MEASURED) ([facility]) 70.9 % (test code = 1455) POCT-GLUCOSE [id number] 13:11:45 Test Item Value Reference Range Interpretation Comments POC-GLUCOSE METER 151 mg/dL 70-110 H : TESTED A T [facility] 6720 (TRAN) (test code [facility], = 1538) 74101: Coding Quality Analyst/Techni patricia ID = [id number] for Agusto baron ([facility]), Ngozi OXYGEN SATURATION, [id number] 11:18:10 Test Item Value Reference Range Interpretation Comments O2 SATURATION (MEASURED) ([facility]) 67.5 % (test code = 1455) XR CHEST 1 VIEW PORTABLE / [id number] 10:22:38 [facility] COLLEEN : 1955 Sex: FCLINICAL HISTORY: s/p ACB surgeryTECHNIQUE: 1 view of the chest.COMPARISON: 03/28/2023IMPRESSION:Support lines unchanged. Bilateral lower lung atelectasis unchanged. Nosignificant pleural fluid. The cardiomediastinal silhouette is magnifiedby technique with sternotomy wires. Cervical fusion hardware againseen .Electronically Signed By: Jeferson Novak03/29/2023 10:24 CDTWorkstation Name: [id number]-[id number] [id number] 09:41:54 Test Item Value Reference Range Interpretation Comments POC-GLUCOSE METER 135 mg/dL 70-110 H : TESTED A T [facility] 6720 (TRAN) (test code [facility], = 1538) 12581: Coding Quality Analyst/Techni patricia ID = [id number] for Agusto baron ([facility]), Ngozi OXYGEN SATURATION, [id number] 04:54:46 Test Item Value Reference Range Interpretation Comments O2 SATURATION (MEASURED) ([facility]) 72.4 % (test code = 1455) BASIC METABOLIC [id number] 04:52:33 Test Item Value Reference Range Interpretation [...] not appl icable for dialysis patien ts Coding Quality Analyst ID - [id number] 04:50:37 Test Item Value Reference Range Interpretation Comments MAGNESIUM (BEAKER) (test code = 1.7 mg/dL 1.6-2.6 627) Coding Quality Analyst ID - [id number] 04:50:37 Test Item Value Reference Range Interpretation Comments PHOSPHORUS (BEAKER) (test code = 3.0 mg/dL 2.3-4.7 604) Coding Quality Analyst ID - [id number] 04:25:05 Test Item Value Reference Range Interpretation [...] mechanical heart valves.CBC W/PLT COUNT & AUTO [id number] 04:21:54 Test Item Value Reference Range Interpretation [...] PERCENT (BEAKER) (test code = 2801) POCT-GLUCOSE [id number] 21:50:45 Test Item Value Reference Range Interpretation Comments POC-GLUCOSE METER 174 mg/dL 70-110 H : TESTED Malena Vora [facility] 6720 (BEAKER) (test code = [place], 1538) 43702: Coding Quality Analyst/Techni patricia ID = [id number] for DO October CT CHEST WITHOUT IV [id number] 21:18:38 [facility] : [id number] Sex: FTECHNIQUE: [...] Signed By: Shelton Donaldson03/28/2023 21:20 CDTWorkstation Name: [id number] CHEST 1 VIEW PORTABLE / [id number] 18:56:16 [facility] JO : 1955 Sex: FXR CHEST 1 VIEW PORTABLE / BEDSIDETECHNIQUE: Frontal view(s) of the chest.INDICATION: swan placementswan placementCOMPARISON: Chest radiograph 13 hours priorFINDINGS/IMPRESSION:Lines/Tubes: Interval placement of a left IJ Mary D-Delicia catheter with tipat the main pulmonary outflow tract. Remaining lines and tubes areunchanged.Lungs/pleura: Mild interstitial airspace opacities. No pleural effusion.No pneumothorax.Heart and Mediastinum: Unchanged.Soft Tissues and Bones: Unchanged.Electronically Signed By: Ese Butler03/28/2023 18:58 CDTWorkstation Name: [id number] 18:29:00 Test Item Value Reference Range Interpretation Comments POC-GLUCOSE METER 86 mg/dL 70-110 : Notified RN/MD: TESTED ([facility]) (test code = AT [facility] [address] [facility] 1538) [facility], [address]: Coding Quality Analyst/Techni patricia ID = [id number] for Ryan Anaya OXYGEN SATURATION, [id number] 16:29:39 Test Item Value Reference Range Interpretation Comments O2 SATURATION (MEASURED) ([facility]) 85.3 % (test code = 1455) [id number] 14:08:11 Test Item Value Reference Range Interpretation Comments PARTIAL THROMBOPLASTIN TIME 35.1 seconds 22.5-36.0 ([facility]) (test code = 760) POCT-GLUCOSE [id number] 12:10:15 Test Item Value Reference Range Interpretation Comments POC-GLUCOSE METER 144 mg/dL 70-110 H : TESTED A T [facility] 6720 ([facility]) (test code = SARM[place] Barreto [facility], 1538) [address]: Coding Quality Analyst/Techni patricia ID = [id number] for Krysta bales([facility])Enrique OXYGEN SATURATION, [id number] 10:57:00 Test Item Value Reference Range Interpretation Comments O2 SATURATION (MEASURED) ([facility]) 78.0 % (test code = 1455) XR CHEST 1 VIEW PORTABLE / [id number] 09:16:56 [facility] : 1955 Sex: FCLINICAL HISTORY: s/p ACB surgeryTECHNIQUE: 1 view of the chest.COMPARISON: 03/27/2023IMPRESSION:Bilateral central lines unchanged. Pulmonary vascular congestion againseen. No significant pleural fluid. Cardiomegaly again seenpoststernotomy.Electronically Signed By: Jeferson Novak03/28/2023 09:18 CDTWorkstation Name: [id number] 07:45:14 Test Item Value Reference Range Interpretation Comments POC-GLUCOSE METER 121 mg/dL 70-110 H : TESTED A T [facility] 6720 ([facility]) (test code = [place], 1538) [address]: Coding Quality Analyst/Techni patricia ID = [id number] for Krysta bales([facility])Enrique [id number] 06:30:11 Test Item Value Reference Range Interpretation [...] for patients with mechanical heart valves.BASIC METABOLIC [id number] 06:22:32 Test Item Value Reference Range Interpretation [...] not appl icable for dialysis patien ts Coding Quality Analyst ID - [id number] 06:20:13 Test Item Value Reference Range Interpretation Comments PHOSPHORUS (BEAKER) (test code = 3.5 mg/dL 2.3-4.7 604) Coding Quality Analyst ID - [id number] 06:20:12 Test Item Value Reference Range Interpretation Comments MAGNESIUM (BEAKER) (test code = 1.8 mg/dL 1.6-2.6 627) Coding Quality Analyst ID - EMCBC W/PLT COUNT & AUTO [id number] 06:05:16 Test Item Value Reference Range Interpretation [...] (BEAKER) (test code = 2801) OXYGEN SATURATION, [id number] 05:40:56 Test Item Value Reference Range Interpretation Comments O2 SATURATION (MEASURED) (BEAKER) 66.5 % (test code = 1455) OXYGEN SATURATION, [id number] 22:12:22 Test Item Value Reference Range Interpretation Comments O2 SATURATION (MEASURED) (BEAKER) 48.3 % (test code = 1455) POCT-GLUCOSE [id number] 22:01:20 Test Item Value Reference Range Interpretation Comments POC-GLUCOSE METER 255 mg/dL 70-110 H : TESTED A T [facility] 6720 (BEAKER) (test code = [place], 1538) [address]: Coding Quality Analyst/Techni patricia ID = [id number] for Morgan rris, Kari POCT-GLUCOSE [id number] 16:48:56 Test Item Value Reference Range Interpretation Comments POC-GLUCOSE METER 155 mg/dL 70-110 H : Notified RN/MD: (TRAN) (test code = TESTED AT [place] [address]) [facility], [address]: Coding Quality Analyst/Techni patricia ID = [id number] for Mo rris, Kylee [id number] 15:59:55 Test Item Value Reference Range Interpretation Comments PARTIAL THROMBOPLASTIN TIME 42.3 seconds 22.5-36.0 H ([facility]) (test code = 760) [id number] 14:37:38 Test Item Value Reference Range Interpretation Comments PARTIAL THROMBOPLASTIN TIME > seconds 22.5-36.0 HH ([facility]) (test code = 760) OXYGEN SATURATION, [id number] 14:11:04 Test Item Value Reference Range Interpretation Comments O2 SATURATION (MEASURED) ([facility]) 48.1 % (test code = 1455) POCT-GLUCOSE [id number] 11:33:26 Test Item Value Reference Range Interpretation Comments POC-GLUCOSE METER 188 mg/dL 70-110 H : Notified RN/MD: (TRAN) (test code = TESTED AT [place] [address]) [facility], [address]: Coding Quality Analyst/Techni patricia ID = [id number] for Mo rris, Kylee OXYGEN SATURATION, [id number] 11:11:52 Test Item Value Reference Range Interpretation Comments O2 SATURATION (MEASURED) ([facility]) 52.7 % (test code = 1455) POCT-GLUCOSE [id number] 07:44:06 Test Item Value Reference Range Interpretation Comments POC-GLUCOSE METER 118 mg/dL 70-110 H : Notified RN/MD: (TRAN) (test code = TESTED AT [place] [address]) [facility], [address]: Coding Quality Analyst/Techni patricia ID = [id number] for Mo rris, Kylee XR CHEST 1 VIEW PORTABLE / [id number] 07:17:47 [facility] : 1955 Sex: FCLINICAL HISTORY: s/p ACB surgeryTECHNIQUE: 1 view of the chest.COMPARISON: 03/26/2023IMPRESSION:The supporting lines and tubes are similar appearing. Mild lungopacities again seen without new lobar consolidation or increasingpleural fluid. The cardiomediastinal silhouette is magnified bytechnique with sternotomy wires. Electronically Signed By: Jeferson Novak03/27/2023 07:19 CDTWorkstation Name: [id number] 06:10:36 Test Item Value Reference Range Interpretation [...] for patients with mechanical heart valves.OXYGEN SATURATION, [id number] 04:41:11 Test Item Value Reference Range Interpretation Comments O2 SATURATION (MEASURED) (BEAKER) 61.1 % (test code = 1455) BASIC METABOLIC [id number] 04:28:59 Test Item Value Reference Range Interpretation [...] not appl icable for dialysis patien ts Coding Quality Analyst ID - [id number] 04:28:53 Test Item Value Reference Range Interpretation [...] is 2.5-3.5 for patients with mechanical heart valves.[id number] 04:20:08 Test Item Value Reference Range Interpretation Comments MAGNESIUM (BEAKER) (test code = 1.9 mg/dL 1.6-2.6 627) Coding Quality Analyst ID - [id number] 04:20:08 Test Item Value Reference Range Interpretation Comments PHOSPHORUS (BEAKER) (test code = 2.6 mg/dL 2.3-4.7 604) Coding Quality Analyst ID - EMCBC W/PLT COUNT & AUTO [id number] 03:50:42 Test Item Value Reference Range Interpretation [...] PERCENT (BEAKER) (test code = 2801) POCT-GLUCOSE [id number] 21:45:54 Test Item Value Reference Range Interpretation Comments POC-GLUCOSE METER 167 mg/dL 70-110 H : TESTED A T [facility] 6720 (BEAKER) (test code = [facility], 1538) [address]: Coding Quality Analyst/Techni patricia ID = [id number] for DO LUIS SARMIENTO OXYGEN SATURATION, [id number] 18:11:23 Test Item Value Reference Range Interpretation Comments O2 SATURATION (MEASURED) (BEAKER) 55.9 % (test code = 1455) LACTIC ACID, [id number] 17:55:23 Test Item Value Reference Range Interpretation Comments LACTATE BLOOD ARTERIAL (2) 1.1 mmol/L 0.5-2.0 (BEAKER) (test code = 2874) Coding Quality Analyst ID - MMPOCT-GLUCOSE [id number] 17:50:42 Test Item Value Reference Range Interpretation Comments POC-GLUCOSE METER 105 mg/dL 70-110 : TESTED A T [facility] 6720 (BEAKER) (test code = [facility], 1538) [address]: Coding Quality Analyst/Techni patricia ID = [id number] for Po ss, Yina POCT-GLUCOSE [id number] 12:09:49 Test Item Value Reference Range Interpretation Comments POC-GLUCOSE METER 231 mg/dL 70-110 H : TESTED A T [facility] 6720 (BEAKER) (test code = [facility], 1538) [address]: Coding Quality Analyst/Techni aptricia ID = [id number] for Po ss, Yina POCT-GLUCOSE [id number] 07:53:56 Test Item Value Reference Range Interpretation Comments POC-GLUCOSE METER 150 mg/dL 70-110 H : TESTED A T [facility] 6720 (BEAKER) (test code = [facility], 1538) [address]: Coding Quality Analyst/Techni patricia ID = [id number] for Po Yina earl XR CHEST 1 VIEW PORTABLE / [id number] 06:57:52 [facility] COLLEEN : 1955 Sex: FCLINICAL HISTORY: s/p ACB surgeryTECHNIQUE: 1 view of the chest.COMPARISON: 03/25/2023IMPRESSION:Right jugular line and left jugular sheath unchanged. Bilateral chesttubes have been removed.No pneumothorax. Mildly prominent lung markings are unchanged. There isno significant pleural fluid. The cardiomediastinal silhouette ismagnified by technique with sternotomy wires. Electronically Signed By: Jeferson Novak03/26/2023 06:59 CDTWorkstation Name: [id number] 05:46:07 Test Item Value Reference Range Interpretation Comments PARTIAL THROMBOPLASTIN TIME 61.4 seconds 22.5-36.0 H (BEAKER) (test code = 760) BASIC METABOLIC [id number] 04:48:14 Test Item Value Reference Range Interpretation [...] not appl icable for dialysis patien ts Coding Quality Analyst ID - MARCOCBC W/PLT COUNT & AUTO [id number] 04:37:01 Test Item Value Reference Range Interpretation [...] 0.00-1.00 PERCENT (BEAKER) (test code = 2801) [id number] 04:36:37 Test Item Value Reference Range Interpretation Comments PHOSPHORUS (BEAKER) (test code = 4.0 mg/dL 2.3-4.7 604) Coding Quality Analyst ID - [id number] 04:36:36 Test Item Value Reference Range Interpretation Comments MAGNESIUM (BEAKER) (test code = 1.9 mg/dL 1.6-2.6 627) Coding Quality Analyst ID - [id number]/[id number] 04:35:52 Test Item Value Reference Range Interpretation [...] for patients with mechanical heart valves.OXYGEN SATURATION, [id number] 04:29:23 Test Item Value Reference Range Interpretation Comments O2 SATURATION (MEASURED) (TRAN) 58.3 % (test code = 1455) POCT-GLUCOSE [id number] 22:52:04 Test Item Value Reference Range Interpretation Comments POC-GLUCOSE METER 138 mg/dL 70-110 H : Notified RN/MD: TESTED (TRAN) (test code AT [facility] [address] [place] = 1538) [facility], [address]: Coding Quality Analyst/Techni patricia ID = [id number] for Aldair Chapman POCT-GLUCOSE [id number] 12:57:00 Test Item Value Reference Range Interpretation Comments POC-GLUCOSE METER 144 mg/dL 70-110 H : TESTED A T [facility] 67 ([facility]) (test code = SARM[address] Barreto [facility], 1538) [address]: Coding Quality Analyst/Techni ptaricia ID = [id number] for Pawan trimble (DivFlt), Caitl in XR CHEST 1 VIEW PORTABLE / [id number] 05:50:32 [facility] : 1955 Sex: FExam:XR CHEST 1 VIEW PORTABLE / BEDSIDEDate: 03/25/2023 5:49 AMIndication:s/p ACB surgeryComparison: Yesterday.IMPRESSION:Lines/Tubes:Unchanged postoperative changes and support devices.Lungs and Pleura : Nopleural effusion. No pneumothorax. Mild perihilarand interstitial opacities redemonstrated.Heart/Medi astinum:Unchanged.Bones/Soft Tissues: No acute osseous abnormality.Upper abdomen: Unremarkable.Electronically Signed By: Ricky Mora03/25/2023 05:52 CDTWorkstation Name: [id number], [id number] 04:33:23 Test Item Value Reference Range Interpretation Comments CALCIUM IONIZED (BEAKER) (test 1.19 mmol/L 1.12-1.27 code = 698) PH, BLOOD (BEAKER) (test code = 7.39 1810) BASIC METABOLIC [id number] 04:29:47 Test Item Value Reference Range Interpretation [...] not as accur ate as Creatinine Birdie sndyer in predicting glom erular filtration rate . Estimated GFR is not appl icable for dialysis patien ts Coding Quality Analyst ID - JAKE [id number] 04:25:02 Test Item Value Reference Range Interpretation Comments PHOSPHORUS (BEAKER) (test code = 3.1 mg/dL 2.3-4.7 604) Coding Quality Analyst ID - JAKE [id number] 04:25:01 Test Item Value Reference Range Interpretation Comments MAGNESIUM (BEAKER) (test code = 1.9 mg/dL 1.6-2.6 627) Coding Quality Analyst ID - JAKE WPT/[id number] 04:17:59 Test Item Value Reference Range Interpretation [...] mechanical heart valves.CBC W/PLT COUNT & AUTO [id number] 04:14:59 Test Item Value Reference Range Interpretation [...] (BEAKER) (test code = 2801) OXYGEN SATURATION, [id number] 04:10:13 Test Item Value Reference Range Interpretation Comments O2 SATURATION (MEASURED) (BEAKER) 63.3 % (test code = 1455) POCT-GLUCOSE [id number] 22:45:55 Test Item Value Reference Range Interpretation Comments POC-GLUCOSE METER 257 mg/dL 70-110 H : TESTED A T [facility] 6720 (BEAKER) (test code [facility], = 1538) [address]: Coding Quality Analyst/Techni patricia ID = [id number] for No boyle (contract)Mitchell POCT-GLUCOSE [id number] 13:10:38 Test Item Value Reference Range Interpretation Comments POC-GLUCOSE METER 135 mg/dL 70-110 H : TESTED A T [facility] 6720 (BEAKER) (test code = SARM[facility] Barreto [facility], 1538) [address]: Coding Quality Analyst/Techni patricia ID = [id number] for TAI MARTINEZ [id number] 10:52:17 Test Item Value Reference Range Interpretation Comments PARTIAL THROMBOPLASTIN TIME 49.0 seconds 22.5-36.0 H (BEAKER) (test code = 760) XR CHEST 1 VIEW PORTABLE / [id number] 05:50:17 [facility] COLLEEN : 1955 Sex: FExam:XR CHEST 1 VIEW PORTABLE / BEDSIDEDate: 03/24/2023 5:49 AMIndication:s/p ACB surgeryComparison: Yesterday.IMPRESSION:Lines/Tubes:Unchanged support devices and postoperative changes.Lungs and Pleura : Mild perihilar opacities may represent pulmonaryvascular congestion. Decreased interstitial opacities. No pleuraleffusions. No pneumothorax.Heart/Mediastinum:UnchangedBones/Soft Tissues: No acute osseous abnormality.Upper abdomen: Unremarkable.Electronically Signed By: Ricky Mora03/24/2023 05:52 CDTWorkstation Name: [id number] METABOLIC [id number] 04:25:29 Test Item Value Reference Range Interpretation [...] not appl icable for dialysis patien ts Coding Quality Analyst ID - [id number] 04:24:23 Test Item Value Reference Range Interpretation Comments PHOSPHORUS (BEAKER) (test code = 3.0 mg/dL 2.3-4.7 604) Coding Quality Analyst ID - [id number] 04:24:22 Test Item Value Reference Range Interpretation Comments MAGNESIUM (BEAKER) (test code = 2.1 mg/dL 1.6-2.6 627) Coding Quality Analyst ID - ADMINPT/[id number] 04:09:38 Test Item Value Reference Range Interpretation Comments PROTIME (BEAKER) (test 22.0 seconds 11.9-14.2 H code = 759) INR (BEAKER) (test 1.98 See_Comment [Automat ed code = 370) message] The [employer] stem which generated this result transmitted reference [...] mechanical heart valves.CBC W/PLT COUNT & AUTO [id number] 04:03:45 Test Item Value Reference Range Interpretation [...] PERCENT (BEAKER) (test code = 2801) CALCIUM, [id number] 03:45:11 Test Item Value Reference Range Interpretation Comments CALCIUM IONIZED (BEAKER) (test 1.15 mmol/L 1.12-1.27 code = 698) PH, BLOOD (BEAKER) (test code = 7.38 1810) OXYGEN SATURATION, [id number] 03:45:10 Test Item Value Reference Range Interpretation Comments O2 SATURATION (MEASURED) (BEAKER) 47.1 % (test code = 1455) POCT-GLUCOSE [id number] 22:00:02 Test Item Value Reference Range Interpretation Comments POC-GLUCOSE METER 100 mg/dL 70-110 : TESTED A T [facility] 6720 (BEAKER) (test code = [place], 1538) [address]: Coding Quality Analyst/Techni patricia ID = [id number] for LUIS ALVAREZ OXYGEN SATURATION, [id number] 13:41:45 Test Item Value Reference Range Interpretation Comments O2 SATURATION (MEASURED) (BEAKER) 55.5 % (test code = 1455) XR CHEST 1 VIEW PORTABLE / [id number] 06:50:59 [facility] COLLEEN : 1955 Sex: FXR [...] Signed By: Taya Phelps03/23/2023 06:53 CDTWorkstation Name: [id number] METABOLIC PANEL 2023-03-23 04:26:24 Test Item Value [...] not appl icable for dialysis patien ts Coding Quality Analyst ID - [id number] 04:03:24 Test Item Value Reference Range Interpretation Comments PHOSPHORUS (BEAKER) (test code = 4.1 mg/dL 2.3-4.7 604) Coding Quality Analyst ID - [id number] 04:03:23 Test Item Value Reference Range Interpretation Comments MAGNESIUM (BEAKER) (test code = 2.3 mg/dL 1.6-2.6 627) Coding Quality Analyst ID - ADMINOXYGEN SATURATION, [id number] 03:59:36 Test Item Value Reference Range Interpretation Comments O2 SATURATION (MEASURED) (BEAKER) 58.0 % (test code = 1455) [id number] 03:57:20 Test Item Value Reference Range Interpretation [...] mechanical heart valves.CBC W/PLT COUNT & AUTO [id number] 03:43:34 Test Item Value Reference Range Interpretation [...] 0.00-1.00 PERCENT (BEAKER) (test code = 2801) [id number] 22:20:05 Test Item Value Reference Range Interpretation Comments SODIUM (BEAKER) (test code = 381) 137 meq/L 136-145 Coding Quality Analyst ID - [id number] 22:20:04 Test Item Value Reference Range Interpretation Comments POTASSIUM (BEAKER) (test code = 4.6 meq/L 3.5-5.1 379) Coding Quality Analyst ID - [id number] 22:20:03 Test Item Value Reference Range Interpretation Comments PHOSPHORUS (BEAKER) (test code = 3.8 mg/dL 2.3-4.7 604) Coding Quality Analyst ID - [id number] 22:20:02 Test Item Value Reference Range Interpretation Comments MAGNESIUM (BEAKER) (test code = 2.3 mg/dL 1.6-2.6 627) Coding Quality Analyst ID - ADMINOXYGEN SATURATION, [id number] 15:35:56 Test Item Value Reference Range Interpretation Comments O2 SATURATION (MEASURED) (BEAKER) 62.9 % (test code = 1455) [id number] 15:13:31 Test Item Value Reference Range Interpretation Comments PARTIAL THROMBOPLASTIN TIME 46.9 seconds 22.5-36.0 H (BEAKER) (test code = 760) [id number] 15:12:50 Test Item Value Reference Range Interpretation Comments FIBRINOGEN LEVEL (BEAKER) (test 470 mg/dl 225-434 H code = 658) PROTHROMBIN TIME/[id number] 15:12:29 Test Item Value Reference Range Interpretation Comments PROTIME (BEAKER) 20.6 seconds 11.9-14.2 H (test code = 759) INR (BEAKER) (test 1.89 See_Comment [Automat ed message] code = 370) The system [employer] generated this result transmitted ref erence range: <=5.90. The reference range was not used to int erpret this result as normal/abnormal . RECOMMENDED COUMADIN/WARFARIN INR THERAPY RANGESSTANDARD DOSE: 2.0 - 3.0 Includes: PROPHYLAXIS for venous thrombosis, systemic embolization; TREATMENT for venous thrombosis and/or pulmonary embolus.HIGH RISK: Target INR is 2.5-3.5 for patients with mechanical heart valves.CBC W/PLT COUNT & AUTO [id number] 15:07:14 Test Item Value Reference Range Interpretation [...] (BEAKER) (test code = 2801) BASIC METABOLIC [id number] 13:07:22 Test Item Value Reference Range Interpretation [...] not appl icable for dialysis patien ts Coding Quality Analyst ID - [id number] 13:07:22 Test Item Value Reference Range Interpretation Comments MAGNESIUM (BEAKER) (test code = 2.3 mg/dL 1.6-2.6 627) Coding Quality Analyst ID - [id number] 13:07:22 Test Item Value Reference Range Interpretation Comments PHOSPHORUS (BEAKER) (test code = 3.8 mg/dL 2.3-4.7 604) Coding Quality Analyst ID - ADMINCALCIUM, [id number] 12:38:13 Test Item Value Reference Range Interpretation Comments CALCIUM IONIZED (BEAKER) (test 1.19 mmol/L 1.12-1.27 code = 698) PH, BLOOD (BEAKER) (test code = 7.45 1810) XR CHEST 1 VIEW PORTABLE / [id number] 07:01:33 [facility] COLLEEN : 1955 Sex: FXR [...] contours. Stable surgical changes.Additional findings: None. Electronically SignedBy: Taya Palaciorell03/22/2023 07:03 CDTWorkstation Name: [id number] 04:35:07 Test Item Value Reference Range Interpretation Comments MAGNESIUM (BEAKER) (test code = 1.9 mg/dL 1.6-2.6 627) Coding Quality Analyst ID - [id number] 04:35:07 Test Item Value Reference Range Interpretation Comments PHOSPHORUS (BEAKER) (test code = 3.8 mg/dL 2.3-4.7 604) Coding Quality Analyst ID - ADMINBASIC METABOLIC [id number] 04:35:06 Test Item Value Reference Range Interpretation [...] not appl icable for dialysis patien ts Coding Quality Analyst ID - ADMINCALCIUM, [id number] 04:21:42 Test Item Value Reference Range Interpretation Comments CALCIUM IONIZED (BEAKER) (test 1.21 mmol/L 1.12-1.27 code = 698) PH, BLOOD (BEAKER) (test code = 7.35 1810) OXYGEN SATURATION, [id number] 04:21:20 Test Item Value Reference Range Interpretation [...] WBC 0-0 (BEAKER) (test code = 413) [id number] 00:50:34 Test Item Value Reference Range Interpretation Comments PHOSPHORUS (BEAKER) (test code = 2.0 mg/dL 2.3-4.7 L 604) Coding Quality Analyst ID - ADMINBASIC METABOLIC [id number] 00:50:33 Test Item Value Reference Range Interpretation [...] not appl icable for dialysis patien ts Coding Quality Analyst ID - [id number] 00:50:33 Test Item Value Reference Range Interpretation Comments MAGNESIUM (BEAKER) (test code = 2.0 mg/dL 1.6-2.6 627) Coding Quality Analyst ID - ADMINCALCIUM, [id number] 00:09:09 Test Item Value Reference Range Interpretation Comments CALCIUM IONIZED (BEAKER) (test 1.26 mmol/L 1.12-1.27 code = 698) PH, BLOOD (BEAKER) (test code = 7.41 1810) [id number] 21:42:55 Test Item Value Reference Range Interpretation Comments SODIUM (BEAKER) (test code = 381) 138 meq/L 136-145 Coding Quality Analyst ID - [id number] 21:42:50 Test Item Value Reference Range Interpretation Comments PHOSPHORUS (BEAKER) (test code = 2.5 mg/dL 2.3-4.7 604) Coding Quality Analyst ID - [id number] 21:42:50 Test Item Value Reference Range Interpretation Comments POTASSIUM (BEAKER) (test code = 4.4 meq/L 3.5-5.1 379) Coding Quality Analyst ID - [id number] 21:42:49 Test Item Value Reference Range Interpretation Comments MAGNESIUM (BEAKER) (test code = 2.2 mg/dL 1.6-2.6 627) Coding Quality Analyst ID - ADMINPH, [id number] 21:28:12 Test Item Value Reference Range Interpretation Comments PH ARTERIAL (BEAKER) (test code = 383) 7.41 7.35-7.45 OXYGEN SATURATION, [id number] 09:32:45 Test Item Value Reference Range Interpretation Comments O2 SATURATION (MEASURED) (BEAKER) 57.3 % (test code = 1455) [id number] 09:21:00 Test Item Value Reference Range Interpretation Comments PHOSPHORUS (BEAKER) (test code = 3.3 mg/dL 2.3-4.7 604) Coding Quality Analyst ID - [id number] 09:20:59 Test Item Value Reference Range Interpretation Comments MAGNESIUM (BEAKER) (test code = 2.3 mg/dL 1.6-2.6 627) Coding Quality Analyst ID - ADMINPH, [id number] 09:05:58 Test Item Value Reference Range Interpretation Comments PH ARTERIAL (BEAKER) (test code = 383) 7.42 7.35-7.45 HEPATIC FUNCTION [id number] 08:20:27 Test Item Value Reference Range Interpretation [...] code = < U/L 6-55 L 347) Coding Quality Analyst ID - ADMINXR CHEST 1 VIEW PORTABLE / [id number] 06:35:30 [facility] COLLEEN : 1955 Sex: FXR [...] Signed By: Taya Phelps03/21/2023 06:37 CDTWorkstation Name: [id number] METABOLIC PANEL 2023-03-21 06:28:11 Test Item Value [...] not appl icable for dialysis patien ts Coding Quality Analyst ID - [id number] 02:33:05 Test Item Value Reference Range Interpretation Comments MAGNESIUM (BEAKER) (test code = 2.2 mg/dL 1.6-2.6 627) Coding Quality Analyst ID - CHELLY [id number] 02:33:05 Test Item Value Reference Range Interpretation Comments PHOSPHORUS (BEAKER) (test code = 3.2 mg/dL 2.3-4.7 604) Coding Quality Analyst ID - CHELLY BBASIC METABOLIC [id number] 02:33:04 Test Item Value Reference Range Interpretation [...] not appl icable for dialysis patien ts Coding Quality Analyst ID - CHELLY BCBC (HEMOGRAM ONLY)2023-03-21 02:12:38 [...] 0-0 (test code = 413) OXYGEN SATURATION, [id number] 02:11:39 Test Item Value Reference Range Interpretation Comments O2 SATURATION (MEASURED) (BEAKER) 74.2 % (test code = 1455) BLOOD GAS, [id number] 02:10:18 Test Item Value Reference Range Interpretation [...] (BEAKER) (test code = 1819) 28.0 CALCIUM, [id number] 02:10:18 Test Item Value Reference Range Interpretation Comments CALCIUM IONIZED (BEAKER) (test 1.28 mmol/L 1.12-1.27 H code = 698) PH, BLOOD (BEAKER) (test code = 7.39 1810) [id number] 00:08:06 Test Item Value Reference Range Interpretation Comments POTASSIUM (BEAKER) (test code = 4.2 meq/L 3.5-5.1 379) Coding Quality Analyst ID - [id number] 19:57:56 Test Item Value Reference Range Interpretation Comments SODIUM (BEAKER) (test code = 381) 138 meq/L 136-145 Coding Quality Analyst ID - CHELLY [id number] 19:57:55 Test Item Value Reference Range Interpretation Comments POTASSIUM (BEAKER) (test code = 4.5 meq/L 3.5-5.1 379) Coding Quality Analyst ID - CHELLY [id number] 19:57:54 Test Item Value Reference Range Interpretation Comments MAGNESIUM (BEAKER) (test code = 2.1 mg/dL 1.6-2.6 627) Coding Quality Analyst ID - CHELLY [id number] 19:57:54 Test Item Value Reference Range Interpretation Comments PHOSPHORUS (BEAKER) (test code = 3.4 mg/dL 2.3-4.7 604) Coding Quality Analyst ID - CHELLY BPH, [id number] 19:39:29 Test Item Value Reference Range Interpretation Comments PH ARTERIAL (BEAKER) (test code = 383) 7.37 7.35-7.45 SARS-COV2/RT-PCR ([facility])2023-03-20 16:25:53 Test Item Value Reference Range Interpretation Comments SARS-COV2/RT-PCR Negative Negative The SARS-Co V-2 target (test code = nucleic acids a re not [id number]) detected in thi s specimen. Negative result [...] revoked sooner. Fact Sheet for Healthcare Providers: https://www.[employer] m/Documents/Xpert%20Xpress%20SARS%20CoV-2/Fact%20Sheets/450-1926%70HAMY-FCD-8%20 HEALTHCARE%20PROVIDERS%20FACT%20SHEET.pdf Fact Sheet for Healthcare Patients: https://www.[employer]/Documents/Xpert%20Xp ress%20SARS%20CoV-2/Fact%20Sheets/774-3654%71RSYV-DQJ-9%20PATIENT%20FACT%20SHEET .[id number] 16:13:52 Test Item Value Reference Range Interpretation Comments POTASSIUM (TRAN) (test code = 4.4 meq/L 3.5-5.1 379) Coding Quality Analyst ID - CHELLY [id number] 16:13:51 Test Item Value Reference Range Interpretation Comments PHOSPHORUS (BEAKER) (test code = 2.4 mg/dL 2.3-4.7 604) Coding Quality Analyst ID - CHELLY [id number] 16:13:50 Test Item Value Reference Range Interpretation Comments MAGNESIUM (BEAKER) (test code = 2.1 mg/dL 1.6-2.6 627) Coding Quality Analyst ID - CHELLY BBLOOD GAS, [id number] 15:59:47 Test Item Value Reference Range Interpretation [...] = 1819) 80.0 HGB/HCT (H&H) - STAT [id number] 15:59:47 Test Item Value Reference Range Interpretation Comments HEMOGLOBIN (BEAKER) (test code = 9.3 GM/DL 12.0-15.0 L 410) HEMATOCRIT (BEAKER) (test code = 27.0 % 36.0-45.0 L 411) SODIUM NA-STAT [id number] 15:58:29 Test Item Value Reference Range Interpretation Comments SODIUM (BEAKER) (test code = 381) 136 meq/L 136-145 POTASSIUM-STAT [id number] 15:58:29 Test Item Value Reference Range Interpretation Comments POTASSIUM (BEAKER) (test code = 4.2 meq/L 3.6-5.5 379) GLUCOSE-STAT [id number] 15:58:28 Test Item Value Reference Range Interpretation Comments GLUCOSE RANDOM (BEAKER) (test code = 98 mg/dL 70-110 652) OXYGEN SATURATION, [id number] 15:58:09 Test Item Value Reference Range Interpretation Comments O2 SATURATION (MEASURED) (BEAKER) 63.6 % (test code = 1455) [id number] 12:33:52 Test Item Value Reference Range Interpretation Comments POTASSIUM (BEAKER) (test code = 4.4 meq/L 3.5-5.1 379) Coding Quality Analyst ID - CHELLY [id number] 12:33:51 Test Item Value Reference Range Interpretation Comments PHOSPHORUS (BEAKER) (test code = 3.0 mg/dL 2.3-4.7 604) Coding Quality Analyst ID - CHELLY [id number] 12:33:50 Test Item Value Reference Range Interpretation Comments MAGNESIUM (BEAKER) (test code = 2.2 mg/dL 1.6-2.6 627) Coding Quality Analyst ID - CHELLY BCALCIUM, [id number] 12:07:26 Test Item Value Reference Range Interpretation Comments CALCIUM IONIZED (BEAKER) (test 1.31 mmol/L 1.12-1.27 H code = 698) PH, BLOOD (BEAKER) (test code = 7.37 1810) HGB/HCT (H&H) - STAT [id number] 12:06:50 Test Item Value Reference Range Interpretation Comments HEMOGLOBIN (BEAKER) (test code = 8.5 GM/DL 12.0-15.0 L 410) HEMATOCRIT (BEAKER) (test code = 25.0 % 36.0-45.0 L 411) BLOOD GAS, [id number] 12:06:49 Test Item Value Reference Range Interpretation [...] (BEAKER) (test code = 1819) 44.0 POTASSIUM-STAT [id number] 12:04:41 Test Item Value Reference Range Interpretation Comments POTASSIUM (BEAKER) (test code = 4.2 meq/L 3.6-5.5 379) GLUCOSE-STAT [id number] 12:04:39 Test Item Value Reference Range Interpretation Comments GLUCOSE RANDOM (BEAKER) (test code = 97 mg/dL 70-110 652) SODIUM NA-STAT [id number] 12:04:39 Test Item Value Reference Range Interpretation Comments SODIUM (BEAKER) (test code = 381) 137 meq/L 136-145 MISCELLANEOUS LAB [id number] 07:32:06 Test Item Value Reference Range Interpretation Comments SCAN RESULT (test code = See scanned report. [id number]) XR CHEST 1 VIEW PORTABLE / [id number] 07:03:43 [facility] : 1955 Sex: FXR CHEST 1 VIEW PORTABLE / BEDSIDEINDICATION: s/p ACB surgeryCOMPARISON: Prior day's examFINDINGS: Portable frontal view of the chest. IMPRESSION:Support Lines: Central catheter tip overlies the right atrium. Mary D-Ganztip overlies the pulmonary outflow tract. Bilateral chest tubes. Lungs and pleura: Unchanged diffuse interstitial thickening,representing singly or in combination, interstitial edema and/orpneumonitis. No significant pneumothorax.Heart and mediastinum: Stable contours. Stable surgical changes.Additional findings: None. Electronically Signed By: Taya Phelps03/20/2023 07:05 CDTWorkstationName: [id number] 06:45:00 Test Item Value Reference Range Interpretation Comments MAGNESIUM (BEAKER) (test code = 2.3 mg/dL 1.6-2.6 627) Coding Quality Analyst ID Gali JOSEPH [id number] 06:45:00 Test Item Value Reference Range Interpretation Comments PHOSPHORUS (BEAKER) (test code = 3.4 mg/dL 2.3-4.7 604) Coding Quality Analyst ID - JAKE WBASIC METABOLIC [id number] 06:44:59 Test Item Value Reference Range Interpretation [...] not appl icable for dialysis patien ts Coding Quality Analyst ID Gali JOSEPH WHGB/HCT (H&H) - STAT [id number] 06:08:57 Test Item Value Reference Range Interpretation Comments HEMOGLOBIN (BEAKER) (test code = 8.8 GM/DL 12.0-15.0 L 410) HEMATOCRIT (BEAKER) (test code = 26.0 % 36.0-45.0 L 411) BLOOD GAS, [id number] 06:08:56 Test Item Value Reference Range Interpretation [...] (BEAKER) (test code = 1819) 36.0 POTASSIUM-STAT [id number] 06:06:56 Test Item Value Reference Range Interpretation Comments POTASSIUM (BEAKER) (test code = 4.3 meq/L 3.6-5.5 379) GLUCOSE-STAT [id number] 06:06:48 Test Item Value Reference Range Interpretation Comments GLUCOSE RANDOM (BEAKER) (test code = 99 mg/dL 70-110 652) SODIUM NA-STAT [id number] 06:06:48 Test Item Value Reference Range Interpretation Comments SODIUM (BEAKER) (test code = 381) 136 meq/L 136-145 PH, [id number] 06:06:47 Test Item Value Reference Range Interpretation Comments PH ARTERIAL (BEAKER) (test code = 383) 7.37 7.35-7.45 [id number] 02:49:09 Test Item Value Reference Range Interpretation Comments PHOSPHORUS (BEAKER) (test code = 3.2 mg/dL 2.3-4.7 604) Coding Quality Analyst ID - JAKE WBASIC METABOLIC [id number] 02:49:08 Test Item Value Reference Range Interpretation [...] not appl icable for dialysis patien ts Coding Quality Analyst ID - JAKE [id number] 02:49:08 Test Item Value Reference Range Interpretation Comments MAGNESIUM (BEAKER) (test code = 2.1 mg/dL 1.6-2.6 627) Coding Quality Analyst ID Gali JOSEPH [id number] 02:38:04 Test Item Value Reference Range Interpretation Comments PARTIAL THROMBOPLASTIN TIME 43.4 seconds 22.5-36.0 H (BEAKER) (test code = 760) OXYGEN SATURATION, [id number] 02:33:22 Test Item Value Reference Range Interpretation Comments O2 SATURATION (MEASURED) (BEAKER) 69.3 % (test code = 1455) BLOOD GAS, [id number] 02:25:08 Test Item Value Reference Range Interpretation [...] (BEAKER) (test code = 1819) 36.0 CALCIUM, [id number] 02:24:43 Test Item Value Reference Range Interpretation [...] /100 WBC 0-0 (test code = 413) [id number] 00:49:47 Test Item Value Reference Range Interpretation Comments PARTIAL THROMBOPLASTIN 123.6 seconds 22.5-36.0 H Rele ase result TIME (BEAKER) (test per B#45 5630 code = 760) [id number] 00:27:11 Test Item Value Reference Range Interpretation Comments POTASSIUM (BEAKER) (test code = 4.4 meq/L 3.5-5.1 379) Coding Quality Analyst ID - [id number] 00:15:30 Test Item Value Reference Range Interpretation Comments PARTIAL THROMBOPLASTIN TIME 39.2 seconds 22.5-36.0 H (BEAKER) (test code = 760) HGB/HCT (H&H) - STAT [id number] 23:57:54 Test Item Value Reference Range Interpretation Comments HEMOGLOBIN (BEAKER) (test code = 8.9 GM/DL 12.0-15.0 L 410) HEMATOCRIT (BEAKER) (test code = 26.0 % 36.0-45.0 L 411) BLOOD GAS, [id number] 23:57:53 Test Item Value Reference Range Interpretation [...] (BEAKER) (test code = 1819) 36.0 POTASSIUM-STAT [id number] 23:57:11 Test Item Value Reference Range Interpretation Comments POTASSIUM (BEAKER) (test code = 4.3 meq/L 3.6-5.5 379) SODIUM NA-STAT [id number] 23:57:06 Test Item Value Reference Range Interpretation Comments SODIUM (BEAKER) (test code = 381) 137 meq/L 136-145 GLUCOSE-STAT [id number] 23:57:05 Test Item Value Reference Range Interpretation Comments GLUCOSE RANDOM (BEAKER) (test code = 77 mg/dL 70-110 652) [id number] 19:45:56 Test Item Value Reference Range Interpretation Comments SODIUM (BEAKER) (test code = 381) 137 meq/L 136-145 Coding Quality Analyst ID - EMLACTIC ACID, [id number] 17:37:17 Test Item Value Reference Range Interpretation Comments LACTATE BLOOD ARTERIAL (2) 0.6 mmol/L 0.5-2.0 (BEAKER) (test code = 2874) Coding Quality Analyst ID - EMHGB/HCT (H&H) - STAT [id number] 16:39:49 Test Item Value Reference Range Interpretation Comments HEMOGLOBIN (BEAKER) (test code = 7.2 GM/DL 12.0-15.0 L 410) HEMATOCRIT (BEAKER) (test code = 21.0 % 36.0-45.0 L 411) BLOOD GAS, [id number] 16:39:48 Test Item Value Reference Range Interpretation [...] (test code = 1819) 24.0 OXYGEN SATURATION, [id number] 16:39:04 Test Item Value Reference Range Interpretation Comments O2 SATURATION (MEASURED) (BEAKER) 72.4 % (test code = 1455) CALCIUM, [id number] 16:36:32 Test Item Value Reference Range Interpretation Comments CALCIUM IONIZED (BEAKER) (test 1.26 mmol/L 1.12-1.27 code = 698) PH, BLOOD (BEAKER) (test code = 7.30 1810) POTASSIUM-STAT [id number] 16:35:53 Test Item Value Reference Range Interpretation Comments POTASSIUM (BEAKER) (test code = 4.6 meq/L 3.6-5.5 379) SODIUM NA-STAT [id number] 16:35:52 Test Item Value Reference Range Interpretation Comments SODIUM (BEAKER) (test code = 381) 135 meq/L 136-145 L GLUCOSE-STAT [id number] 16:35:47 Test Item Value Reference Range Interpretation Comments GLUCOSE RANDOM (BEAKER) (test code 124 mg/dL 70-110 H = 652) [id number] 16:10:37 Test Item Value Reference Range Interpretation Comments POTASSIUM (BEAKER) (test code = 4.7 meq/L 3.5-5.1 379) Coding Quality Analyst ID - [id number] 16:10:36 Test Item Value Reference Range Interpretation Comments PHOSPHORUS (BEAKER) (test code = 4.3 mg/dL 2.3-4.7 604) Coding Quality Analyst ID - [id number] 16:10:35 Test Item Value Reference Range Interpretation Comments MAGNESIUM (BEAKER) (test code = 2.2 mg/dL 1.6-2.6 627) Coding Quality Analyst ID - [id number] 16:01:22 Test Item Value Reference Range Interpretation Comments PARTIAL THROMBOPLASTIN TIME 39.8 seconds 22.5-36.0 H (BEAKER) (test code = 760) [id number] 12:47:31 Test Item Value Reference Range Interpretation Comments PHOSPHORUS (BEAKER) (test code = 4.4 mg/dL 2.3-4.7 604) Coding Quality Analyst ID - [id number] 12:47:31 Test Item Value Reference Range Interpretation Comments POTASSIUM (BEAKER) (test code = 4.6 meq/L 3.5-5.1 379) Coding Quality Analyst ID - [id number] 12:47:30 Test Item Value Reference Range Interpretation Comments MAGNESIUM (BEAKER) (test code = 2.2 mg/dL 1.6-2.6 627) Coding Quality Analyst ID - ADMINHEPARIN [id number] 12:42:26 Test Item Value Reference Range Interpretation Comments HEPARIN ANTIBODY (BEAKER) (test code Negative Negative = 646) HEPARIN ANTIBODY OD (BEAKER) (test 0.112 <0.400 code = 8939) 4T TOTAL SCORE (BEAKER) (test code = 4 6563) SODIUM NA-STAT [id number] 12:37:39 Test Item Value Reference Range Interpretation Comments SODIUM (BEAKER) (test code = 381) 134 meq/L 136-145 L HGB/HCT (H&H) - STAT [id number] 12:37:01 Test Item Value Reference Range Interpretation Comments HEMOGLOBIN (BEAKER) (test code = 7.7 GM/DL 12.0-15.0 L 410) HEMATOCRIT (BEAKER) (test code = 23.0 % 36.0-45.0 L 411) BLOOD GAS, [id number] 12:36:33 Test Item Value Reference Range Interpretation [...] (BEAKER) (test code = 1819) 21.0 CALCIUM, [id number] 12:36:15 Test Item Value Reference Range Interpretation Comments CALCIUM IONIZED (BEAKER) (test 1.21 mmol/L 1.12-1.27 code = 698) PH, BLOOD (BEAKER) (test code = 7.37 1810) GLUCOSE-STAT [id number] 12:34:08 Test Item Value Reference Range Interpretation Comments GLUCOSE RANDOM (BEAKER) (test code 115 mg/dL 70-110 H = 652) POTASSIUM-STAT [id number] 12:34:08 Test Item Value Reference Range Interpretation Comments POTASSIUM (BEAKER) (test code = 4.4 meq/L 3.6-5.5 379) OXYGEN SATURATION, [id number] 10:31:47 Test Item Value Reference Range Interpretation Comments O2 SATURATION (MEASURED) (BEAKER) 60.7 % (test code = 1455) MISCELLANEOUS LAB [id number] 09:22:57 Test Item Value Reference Range Interpretation Comments SCAN RESULT (test code = See scanned report. [id number]) HGB/HCT (H&H) - STAT [id number] 08:04:50 Test Item Value Reference Range Interpretation Comments HEMOGLOBIN (BEAKER) (test code = 7.7 GM/DL 12.0-15.0 L 410) HEMATOCRIT (BEAKER) (test code = 23.0 % 36.0-45.0 L 411) BLOOD GAS, [id number] 08:04:49 Test Item Value Reference Range Interpretation [...] 37.4 (test code = 1818) OXYGEN SATURATION, [id number] 08:04:43 Test Item Value Reference Range Interpretation Comments O2 SATURATION (MEASURED) (BEAKER) 45.4 % (test code = 1455) POTASSIUM-STAT [id number] 08:04:33 Test Item Value Reference Range Interpretation Comments POTASSIUM (BEAKER) (test code = 4.2 meq/L 3.6-5.5 379) SODIUM NA-STAT [id number] 08:04:27 Test Item Value Reference Range Interpretation Comments SODIUM (BEAKER) (test code = 381) 136 meq/L 136-145 GLUCOSE-STAT [id number] 08:04:26 Test Item Value Reference Range Interpretation Comments GLUCOSE RANDOM (BEAKER) (test code = 91 mg/dL 70-110 652) XR CHEST 1 VIEW PORTABLE / [id number] 07:48:28 [facility] : 1955 Sex: FXR CHEST 1 VIEW PORTABLE / BEDSIDEINDICATION: s/p ACB surgeryCOMPARISON: Prior day's examFINDINGS: Portable frontal view of the chest. IMPRESSION:Support Lines: Central catheter tip overlies the right atrium. Mary D-Ganztip overlies the pulmonary outflow tract. Bilateral chest tubes. Lungs and pleura: Unchanged diffuse interstitial thickening,representing singly or in combination, interstitial edema and/orpneumonitis. No significant pneumothorax.Heart and mediastinum: Stable contours. Stable surgical changes.Additional findings: None.Electronically Signed By: Taya Phelps03/19/2023 07:50 CDTWorkstation Na me: CBPRIUF84KWN/HCT (H&H) - STAT [id number] 05:43:54 Test Item Value Reference Range Interpretation Comments HEMOGLOBIN (BEAKER) (test code = 7.5 GM/DL 12.0-15.0 L 410) HEMATOCRIT (BEAKER) (test code = 22.0 % 36.0-45.0 L 411) BLOOD GAS, [id number] 05:43:53 Test Item Value Reference Range Interpretation [...] (test code = 1819) 28.0 OXYGEN SATURATION, [id number] 05:42:29 Test Item Value Reference Range Interpretation Comments O2 SATURATION (MEASURED) (BEAKER) 46.3 % (test code = 1455) POTASSIUM-STAT [id number] 05:42:10 Test Item Value Reference Range Interpretation Comments POTASSIUM (BEAKER) (test code = 4.0 meq/L 3.6-5.5 379) GLUCOSE-STAT [id number] 05:42:09 Test Item Value Reference Range Interpretation Comments GLUCOSE RANDOM (BEAKER) (test code = 76 mg/dL 70-110 652) SODIUM NA-STAT [id number] 05:42:09 Test Item Value Reference Range Interpretation Comments SODIUM (BEAKER) (test code = 381) 135 meq/L 136-145 L [id number] 03:00:43 Test Item Value Reference Range Interpretation [...] is 2.5-3.5 for patients with mechanical heart valves.[id number] 03:00:42 Test Item Value Reference Range Interpretation Comments MAGNESIUM (BEAKER) (test code = 2.1 mg/dL 1.6-2.6 627) Coding Quality Analyst ID - CHELLY [id number] 03:00:42 Test Item Value Reference Range Interpretation Comments PHOSPHORUS (BEAKER) (test code = 4.0 mg/dL 2.3-4.7 604) Coding Quality Analyst ID - CHELLY BBASIC METABOLIC [id number] 03:00:41 Test Item Value Reference Range Interpretation [...] not appl icable for dialysis patien ts Coding Quality Analyst ID - CHELLY [id number] 03:00:23 Test Item Value Reference Range Interpretation Comments FIBRINOGEN LEVEL (BEAKER) (test 488 mg/dl 225-434 H code = 658) CALCIUM, [id number] 02:48:41 Test Item Value Reference Range Interpretation Comments CALCIUM IONIZED (BEAKER) (test 1.23 mmol/L 1.12-1.27 code = 698) PH, BLOOD (BEAKER) (test code = 7.38 1810) OXYGEN SATURATION, [id number] 02:48:20 Test Item Value Reference Range Interpretation Comments O2 SATURATION (MEASURED) (BEAKER) 61.4 % (test code = 1455) BLOOD GAS, [id number] 02:44:41 Test Item Value Reference Range Interpretation [...] /100 WBC 0-0 (test code = 413) [id number] 01:40:31 Test Item Value Reference Range Interpretation Comments POTASSIUM (BEAKER) (test code = 4.4 meq/L 3.5-5.1 379) Coding Quality Analyst ID - CHELLY [id number] 20:30:45 Test Item Value Reference Range Interpretation Comments POTASSIUM (BEAKER) (test code = 4.3 meq/L 3.5-5.1 379) Coding Quality Analyst ID - [id number] 20:30:44 Test Item Value Reference Range Interpretation Comments PHOSPHORUS (BEAKER) (test code = 2.5 mg/dL 2.3-4.7 604) Coding Quality Analyst ID - [id number] 20:30:43 Test Item Value Reference Range Interpretation Comments MAGNESIUM (BEAKER) (test code = 2.1 mg/dL 1.6-2.6 627) Coding Quality Analyst ID - [id number] 13:34:40 Test Item Value Reference Range Interpretation Comments PHOSPHORUS (BEAKER) (test code = 2.7 mg/dL 2.3-4.7 604) Coding Quality Analyst ID - CHELLY [id number] 13:34:39 Test Item Value Reference Range Interpretation Comments MAGNESIUM (BEAKER) (test code = 2.2 mg/dL 1.6-2.6 627) Coding Quality Analyst ID - CHELLY BBASIC METABOLIC [id number] 13:34:38 Test Item Value Reference Range Interpretation [...] not appl icable for dialysis patien ts Coding Quality Analyst ID - CHELLY BCBC W/PLT COUNT & AUTO [id number] 13:25:29 Test Item Value Reference Range Interpretation [...] (BEAKER) (test code = 2801) OXYGEN SATURATION, [id number] 13:13:17 Test Item Value Reference Range Interpretation Comments O2 SATURATION (MEASURED) (BEAKER) 57.8 % (test code = 1455) CALCIUM, [id number] 13:13:16 Test Item Value Reference Range Interpretation Comments CALCIUM IONIZED (BEAKER) (test 1.26 mmol/L 1.12-1.27 code = 698) PH, BLOOD (BEAKER) (test code = 7.45 1810) XR CHEST 1 VIEW PORTABLE / [id number] 07:46:20 [facility] : 1955 Sex: FChestone view:HISTORY: s/p ACB surgeryComparison: Previous day's studySupport apparatus: Not significantly changed in position.Bibasilar atelectasis is again noted. Right perihilar subsegmentalatelectasis is now present. There is no pneumothorax or pleuraleffusion. Cardiac size is unchanged. Changes of median sternotomy areagain noted.Electronically Signed By: Collins Yeh03/18/2023 07:48 CDTWorkstation Name: [id number] 02:43:17 Test Item Value Reference Range Interpretation Comments MAGNESIUM (BEAKER) (test code = 2.4 mg/dL 1.6-2.6 627) Coding Quality Analyst ID - CHELLY [id number] 02:43:17 Test Item Value Reference Range Interpretation Comments PHOSPHORUS (BEAKER) (test code = 3.3 mg/dL 2.3-4.7 604) Coding Quality Analyst ID - CHELLY BBASIC METABOLIC [id number] 02:43:16 Test Item Value Reference Range Interpretation [...] not appl icable for dialysis patien ts Coding Quality Analyst ID - CHELLY BLACTIC ACID, [id number] 02:36:57 Test Item Value Reference Range Interpretation Comments LACTATE BLOOD ARTERIAL (2) 0.5 mmol/L 0.5-2.0 (BEAKER) (test code = 2874) Coding Quality Analyst ID - CHELLY BPT/[id number] 02:33:52 Test Item Value Reference Range Interpretation Comments PROTIME (BEAKER) (test 16.2 seconds 11.9-14.2 H code = 759) INR (BEAKER) (test 1.39 See_Comment [Automat ed code = 370) message] The [employer] stem which generated this result transmitted reference [...] 2.5-3.5 for patients with mechanical heart valves.PROTHROMBIN TIME/[id number] 02:32:54 Test Item Value Reference Range Interpretation Comments PROTIME (BEAKER) 16.2 seconds 11.9-14.2 H (test code = 759) INR (BEAKER) (test 1.39 See_Comment [Automat ed message] code = 370) The system [employer] generated this result transmitted ref erence range: <=5.90. The reference range was not used to int erpret this result as normal/abnormal . RECOMMENDED COUMADIN/WARFARIN INR THERAPY RANGESSTANDARD DOSE: 2.0 - 3.0 Includes: PROPHYLAXIS for venous thrombosis, systemic embolization; TREATMENT for venous thrombosis and/or pulmonary embolus.HIGH RISK: Target INR is 2.5-3.5 for patients with mechanical heart valves.BLOOD GAS, [id number] 02:25:24 Test Item Value Reference Range Interpretation [...] (test code = 1819) 36.0 OXYGEN SATURATION, [id number] 02:25:12 Test Item Value Reference Range Interpretation [...] WBC 0-0 (test code = 413) CALCIUM, [id number] 02:23:14 Test Item Value Reference Range Interpretation Comments CALCIUM IONIZED (BEAKER) (test 1.23 mmol/L 1.12-1.27 code = 698) PH, BLOOD (BEAKER) (test code = 7.45 1810) [id number] 19:58:59 Test Item Value Reference Range Interpretation Comments POTASSIUM (BEAKER) (test code = 4.5 meq/L 3.5-5.1 379) Coding Quality Analyst ID - [id number] 19:58:58 Test Item Value Reference Range Interpretation Comments PHOSPHORUS (BEAKER) (test code = 2.4 mg/dL 2.3-4.7 604) Coding Quality Analyst ID - [id number] 19:58:57 Test Item Value Reference Range Interpretation Comments MAGNESIUM (BEAKER) (test code = 2.0 mg/dL 1.6-2.6 627) Coding Quality Analyst ID - EMCBC (HEMOGRAM ONLY)2023-03-17 19:47:18 Test [...] /100 WBC 0-0 (test code = 413) [id number] 18:20:50 Test Item Value Reference Range Interpretation Comments PARTIAL THROMBOPLASTIN TIME 41.8 seconds 22.5-36.0 H (BEAKER) (test code = 760) [id number] 18:20:11 Test Item Value Reference Range Interpretation Comments FIBRINOGEN LEVEL (BEAKER) (test 335 mg/dl 225-434 code = 658) PROTHROMBIN TIME/[id number] 18:19:48 Test Item Value Reference Range Interpretation Comments PROTIME (BEAKER) 15.7 seconds 11.9-14.2 H (test code = 759) INR (BEAKER) (test 1.33 See_Comment [Automat ed message] code = 370) The system Fli[employer] generated this result transmitted ref erence range: [...] /100 WBC 0-0 (test code = 413) [id number] 12:38:47 Test Item Value Reference Range Interpretation Comments MAGNESIUM (BEAKER) (test code = 2.1 mg/dL 1.6-2.6 627) Coding Quality Analyst ID - [id number] 12:38:47 Test Item Value Reference Range Interpretation Comments PHOSPHORUS (BEAKER) (test code = 2.6 mg/dL 2.3-4.7 604) Coding Quality Analyst ID - EMBASIC METABOLIC [id number] 12:38:46 Test Item Value Reference Range Interpretation [...] not appl icable for dialysis patien ts Coding Quality Analyst ID - EMLACTIC ACID, [id number] 12:35:31 Test Item Value Reference Range Interpretation Comments LACTATE BLOOD ARTERIAL (2) 0.5 mmol/L 0.5-2.0 (BEAKER) (test code = 2874) Coding Quality Analyst ID - EMCBC (HEMOGRAM ONLY)2023-03-17 12:18:06 Test [...] 0-0 (test code = 413) OXYGEN SATURATION, [id number] 12:15:27 Test Item Value Reference Range Interpretation Comments O2 SATURATION (MEASURED) (BEAKER) 68.3 % (test code = 1455) CALCIUM, [id number] 12:14:45 Test Item Value Reference Range Interpretation Comments CALCIUM IONIZED (BEAKER) (test 1.25 mmol/L 1.12-1.27 code = 698) PH, BLOOD (BEAKER) (test code = 7.46 1810) HGB/HCT (H&H) - STAT [id number] 11:01:30 Test Item Value Reference Range Interpretation Comments HEMOGLOBIN (BEAKER) (test code = 8.1 GM/DL 12.0-15.0 L 410) HEMATOCRIT (BEAKER) (test code = 24.0 % 36.0-45.0 L 411) SODIUM NA-STAT [id number] 11:01:29 Test Item Value Reference Range Interpretation Comments SODIUM (BEAKER) (test code = 381) 134 meq/L 136-145 L BLOOD GAS, [id number] 11:01:28 Test Item Value Reference Range Interpretation [...] (BEAKER) (test code = 1819) 36.0 GLUCOSE-STAT [id number] 10:59:59 Test Item Value Reference Range Interpretation Comments GLUCOSE RANDOM (BEAKER) (test code 110 mg/dL 70-110 = 652) POTASSIUM-STAT [id number] 10:59:59 Test Item Value Reference Range Interpretation Comments POTASSIUM (BEAKER) (test code = 4.2 meq/L 3.6-5.5 379) [id number] 08:19:59 Test Item Value Reference Range Interpretation Comments PHOSPHORUS (BEAKER) (test code = 2.7 mg/dL 2.3-4.7 604) Coding Quality Analyst ID - [id number] 08:19:59 Test Item Value Reference Range Interpretation Comments POTASSIUM (BEAKER) (test code = 4.5 meq/L 3.5-5.1 379) Coding Quality Analyst ID - [id number] 08:19:58 Test Item Value Reference Range Interpretation Comments MAGNESIUM (BEAKER) (test code = 2.2 mg/dL 1.6-2.6 627) Coding Quality Analyst ID - EMXR CHEST 1 VIEW PORTABLE / [id number] 08:13:35 [facility] : 1955 Sex: FChestone view:HISTORY: s/p ACB surgeryComparison: Previous day's studySupport apparatus: The endotrachealand nasogastric tubes have beenremoved in the interval. The remaining support apparatus is notsignificantly changed in position.Bibasilar subsegmental atelectasis is present. There is no pneumothoraxorpleural effusion. Cardiac size is unchanged. Sternotomy changes areagain noted.Electronically SignedBy: Collins Yeh03/17/2023 08:15 CDTWorkstation Name: [id number]- GLUCOSE [id number] 08:08:50 Test Item Value Reference Range Interpretation Comments POC-GLUCOSE METER 109 mg/dL 70-110 : TESTED A T [facility] [address] ([facility]) (test code = SARMAD Barreto [facility], 1538) [id number]: Coding Quality Analyst/Techni patricia ID = [id number] for Marcia Torres CBC W/PLT COUNT & AUTO [id number] 06:55:18 Test Item Value Reference Range Interpretation [...] PERCENT (BEAKER) (test code = 2801) POCT-GLUCOSE [id number] 06:09:26 Test Item Value Reference Range Interpretation Comments POC-GLUCOSE METER 113 mg/dL 70-110 H : TESTED A T [facility] [address] (BEAKER) (test code = [place], 1538) [id number]: Coding Quality Analyst/Techni patricia ID = [id number] for Sir Sagar Cook FUNCTION [id number] 04:09:05 Test Item Value Reference Range Interpretation [...] code = < U/L 6-55 L 347) Coding Quality Analyst ID - FSEBASIC METABOLIC [id number] 03:32:32 Test Item Value Reference Range Interpretation [...] not appl icable for dialysis patien ts Coding Quality Analyst ID - [id number] 03:26:13 Test Item Value Reference Range Interpretation Comments MAGNESIUM (BEAKER) (test code = 2.0 mg/dL 1.6-2.6 627) Coding Quality Analyst ID - [id number] 03:26:13 Test Item Value Reference Range Interpretation Comments PHOSPHORUS (BEAKER) (test code = 2.8 mg/dL 2.3-4.7 604) Coding Quality Analyst ID - FSECBC (HEMOGRAM ONLY)2023-03-17 02:51:49 Test [...] 0-0 (test code = 413) BLOOD GAS, [id number] 02:35:12 Test Item Value Reference Range Interpretation [...] (BEAKER) (test code = 1819) 36.0 CALCIUM, [id number] 02:34:46 Test Item Value Reference Range Interpretation Comments CALCIUM IONIZED (BEAKER) (test 1.23 mmol/L 1.12-1.27 code = 698) PH, BLOOD (BEAKER) (test code = 7.44 1810) OXYGEN SATURATION, [id number] 02:34:23 Test Item Value Reference Range Interpretation Comments O2 SATURATION (MEASURED) (BEAKER) 64.7 % (test code = 1455) HGB/HCT (H&H) - STAT [id number] 20:54:18 Test Item Value Reference Range Interpretation Comments HEMOGLOBIN (BEAKER) (test code = 8.3 GM/DL 12.0-15.0 L 410) HEMATOCRIT (BEAKER) (test code = 24.0 % 36.0-45.0 L 411) CALCIUM, [id number] 20:47:51 Test Item Value Reference Range Interpretation Comments CALCIUM IONIZED (BEAKER) (test 1.22 mmol/L 1.12-1.27 code = 698) PH, BLOOD (BEAKER) (test code = 7.43 1810) POTASSIUM-STAT [id number] 20:46:53 Test Item Value Reference Range Interpretation Comments POTASSIUM (BEAKER) (test code = 4.2 meq/L 3.6-5.5 379) GLUCOSE-STAT [id number] 20:46:52 Test Item Value Reference Range Interpretation Comments GLUCOSE RANDOM (BEAKER) (test code 125 mg/dL 70-110 H = 652) SODIUM NA-STAT [id number] 20:46:52 Test Item Value Reference Range Interpretation Comments SODIUM (BEAKER) (test code = 381) 136 meq/L 136-145 BLOOD GAS, [id number] 20:46:51 Test Item Value Reference Range Interpretation [...] = 1819) 36.0 HGB/HCT (H&H) - STAT [id number] 18:49:42 Test Item Value Reference Range Interpretation Comments HEMOGLOBIN (BEAKER) (test code = 8.5 GM/DL 12.0-15.0 L 410) HEMATOCRIT (BEAKER) (test code = 25.0 % 36.0-45.0 L 411) BLOOD GAS, [id number] 18:49:41 Test Item Value Reference Range Interpretation [...] (BEAKER) (test code = 1819) 21.0 POTASSIUM-STAT [id number] 18:49:20 Test Item Value Reference Range Interpretation Comments POTASSIUM (BEAKER) (test code = 4.4 meq/L 3.6-5.5 379) SODIUM NA-STAT [id number] 18:49:19 Test Item Value Reference Range Interpretation Comments SODIUM (BEAKER) (test code = 381) 136 meq/L 136-145 GLUCOSE-STAT [id number] 18:49:18 Test Item Value Reference Range Interpretation Comments GLUCOSE RANDOM (BEAKER) (test code 130 mg/dL 70-110 H = 652) COMPREHENSIVE METABOLIC [id number] 15:58:01 Test Item Value Reference Range Interpretation [...] not appl icable for dialysis patien ts Coding Quality Analyst ID - FSELACTIC ACID, [id number] 15:49:47 Test Item Value Reference Range Interpretation Comments LACTATE BLOOD ARTERIAL (2) 0.7 mmol/L 0.5-2.0 (BEAKER) (test code = 2874) Coding Quality Analyst ID - FSEHGB/HCT (H&H) - STAT [id number] 15:40:19 Test Item Value Reference Range Interpretation Comments HEMOGLOBIN (BEAKER) (test code = 8.6 GM/DL 12.0-15.0 L 410) HEMATOCRIT (BEAKER) (test code = 25.0 % 36.0-45.0 L 411) BLOOD GAS, [id number] 15:40:18 Test Item Value Reference Range Interpretation [...] (BEAKER) (test code = 1819) 21.0 POTASSIUM-STAT [id number] 15:39:50 Test Item Value Reference Range Interpretation Comments POTASSIUM (BEAKER) (test code = 4.2 meq/L 3.6-5.5 379) GLUCOSE-STAT [id number] 15:39:49 Test Item Value Reference Range Interpretation Comments GLUCOSE RANDOM (BEAKER) (test code 119 mg/dL 70-110 H = 652) SODIUM NA-STAT [id number] 15:39:49 Test Item Value Reference Range Interpretation Comments SODIUM (BEAKER) (test code = 381) 135 meq/L 136-145 L CBC W/PLT COUNT & AUTO [id number] 15:34:40 Test Item Value Reference Range Interpretation [...] (BEAKER) (test code = 2801) OXYGEN SATURATION, [id number] 15:26:26 Test Item Value Reference Range Interpretation Comments O2 SATURATION (MEASURED) (BEAKER) 75.9 % (test code = 1455) XR CHEST 1 VIEW PORTABLE / [id number] 15:25:25 [facility] : 1955 Sex: FTECHNIQUE: Frontal [...] Signed By: Adrián Alarcon03/16/2023 15:27 CDTWorkstation Name: [id number] 12:17:21 Test Item Value Reference Range Interpretation Comments HEMOGLOBIN A1C 5.7 % See_Comment H [Automated m essage] ELECTROPHORESIS (BEAKER) The system which (test code = 3811) generated this result transmitted ref erence range: <=5.6%. The reference range was not used to int erpret this result as normal/abnormal . "The A1c is measured using a [facility]-certified method. HbA1c value equal to or greater than 6.5% as thediagnosis cutoff for diabetes. An HbA1c value of 5.7- 6.4% indicates increased risk for diabetes (prediabetes)."Coding Quality Analyst ID - ADMOperator ID - [id number] 11:28:22 Test Item Value Reference Range Interpretation Comments FIBRINOGEN LEVEL (BEAKER) (test 271 mg/dl 225-434 code = 658) [id number] 11:27:57 Test Item Value Reference Range Interpretation Comments PARTIAL THROMBOPLASTIN TIME 37.0 seconds 22.5-36.0 H (BEAKER) (test code = 760) PROTHROMBIN TIME/[id number] 11:27:20 Test Item Value Reference Range Interpretation Comments PROTIME (BEAKER) 15.7 seconds 11.9-14.2 H (test code = 759) INR (BEAKER) (test 1.28 See_Comment [Automat ed message] code = 370) The system [employer] h generated this result transmitted ref erence range: <=5.90. The reference range was not used to int erpret this result as normal/abnormal . RECOMMENDED COUMADIN/WARFARIN INR THERAPY RANGESSTANDARD DOSE: 2.0 - 3.0 Includes: PROPHYLAXIS for venous thrombosis, systemic embolization; TREATMENT for venous thrombosis and/or pulmonary embolus.HIGH RISK: Target INR is 2.5-3.5 for patients with mechanical heart valves.BASIC METABOLIC [id number] 11:11:56 Test Item Value Reference Range Interpretation [...] (test code = 697) EGFR (BEAKER) 20 Interpretati on of eGFR (test code = mL/min/1.73 values [...] not appl icable for dialysis patien ts Coding Quality Analyst ID - [id number] 11:08:38 Test Item Value Reference Range Interpretation Comments PHOSPHORUS (BEAKER) (test code = 3.0 mg/dL 2.3-4.7 604) Coding Quality Analyst ID - [id number] 11:08:37 Test Item Value Reference Range Interpretation Comments MAGNESIUM (BEAKER) (test code = 2.2 mg/dL 1.6-2.6 627) Coding Quality Analyst ID - EMLACTIC ACID, [id number] 11:02:36 Test Item Value Reference Range Interpretation Comments LACTATE BLOOD ARTERIAL (2) 0.7 mmol/L 0.5-2.0 (BEAKER) (test code = 2874) Coding Quality Analyst ID - EMCBC W/PLT COUNT & AUTO [id number] 10:50:44 Test Item Value Reference Range Interpretation [...] code = 2801) HGB/HCT (H&H) - STAT [id number] 10:45:54 Test Item Value Reference Range Interpretation Comments HEMOGLOBIN (BEAKER) (test code = 8.9 GM/DL 12.0-15.0 L 410) HEMATOCRIT (BEAKER) (test code = 26.0 % 36.0-45.0 L 411) BLOOD GAS, [id number] 10:45:53 Test Item Value Reference Range Interpretation [...] (BEAKER) (test code = 1819) 21.0 POTASSIUM-STAT [id number] 10:45:32 Test Item Value Reference Range Interpretation Comments POTASSIUM (BEAKER) (test code = 4.3 meq/L 3.6-5.5 379) GLUCOSE-STAT [id number] 10:45:31 Test Item Value Reference Range Interpretation Comments GLUCOSE RANDOM (BEAKER) (test code 123 mg/dL 70-110 H = 652) SODIUM NA-STAT [id number] 10:45:31 Test Item Value Reference Range Interpretation Comments SODIUM (BEAKER) (test code = 381) 137 meq/L 136-145 POCT-GLUCOSE [id number] 07:55:18 Test Item Value Reference Range Interpretation Comments POC-GLUCOSE METER 127 mg/dL 70-110 H : TESTED A T [facility] [address] (BEAKER) (test [facility] = [facility] [place] [address]: Coding Quality Analyst/Techni patricia ID = [id number] for ZACK MICHAEL [id number] 06:33:18 Test Item Value Reference Range Interpretation Comments ACTIVATED CLOTTING TIME 113 sec : 74 -137 seconds, (BEAKER) (test code = Mani ne: TESTED AT 441) [facility] [address] [facility], [address]: Coding Quality Analyst/Techni patricia ID = [id number] for ISABELLA SOARES [id number] 06:33:18 Test Item Value Reference Range Interpretation Comments ACTIVATED CLOTTING TIME 420 sec : 74 -137 seconds, (BEAKER) (test code = Baseli ne: TESTED AT 441) [address], [address]: Coding Quality Analyst/Techni patricia ID = [id number] for NG NGOZI, DUNG [id number] 06:33:17 Test Item Value Reference Range Interpretation Comments ACTIVATED CLOTTING TIME 408 sec : 74 -137 seconds, (BEAKER) (test code = Baseli ne: TESTED AT 441) [address], [facility] 30: Coding Quality Analyst/Techni patricia ID = [id number] for NG NGOZI, DUNG [id number] 06:32:50 Test Item Value Reference Range Interpretation Comments ACTIVATED CLOTTING TIME 498 sec : 74 -137 seconds, (BEAKER) (test code = Baseli ne: TESTED AT 441) [address], [facility] 30: Coding Quality Analyst/Techni patricia ID = [id number] for NG NGOZI, DUNG [id number] 06:32:50 Test Item Value Reference Range Interpretation Comments ACTIVATED CLOTTING TIME 612 sec : 74 -137 seconds, (BEAKER) (test code = Baseli ne: TESTED AT 441) [address], [facility] 30: Coding Quality Analyst/Techni patricia ID = [id number] for NG NGOZI, DUNG [id number] 06:32:49 Test Item Value Reference Range Interpretation Comments ACTIVATED CLOTTING TIME 426 sec : 74 -137 seconds, (BEAKER) (test code = Baseli ne: TESTED AT 441) [address], [facility] 30: Coding Quality Analyst/Techni patricia ID = [id number] for NG NGOZI, DUNG [id number] 05:04:24 Test Item Value Reference Range Interpretation Comments FIBRINOGEN LEVEL (BEAKER) (test 320 mg/dl 225-434 code = 658) HEPATIC FUNCTION [id number] 03:43:40 Test Item Value Reference Range Interpretation [...] code = < U/L 6-55 L 347) Coding Quality Analyst ID - ADMINOXYGEN SATURATION, [id number] 03:20:18 Test Item Value Reference Range Interpretation Comments O2 SATURATION (MEASURED) (BEAKER) 59.3 % (test code = 1455) COMPREHENSIVE METABOLIC [id number] 03:19:45 Test Item Value Reference Range Interpretation [...] not appl icable for dialysis patien ts Coding Quality Analyst ID - EMBLOOD GAS, [id number] 03:16:01 Test Item Value Reference Range Interpretation [...] (BEAKER) (test code = 1819) 40.0 CALCIUM, [id number] 03:14:59 Test Item Value Reference Range Interpretation Comments CALCIUM IONIZED (BEAKER) (test 1.24 mmol/L 1.12-1.27 code = 698) PH, BLOOD (BEAKER) (test code = 7.44 1810) GLUCOSE-STAT [id number] 03:14:38 Test Item Value Reference Range Interpretation Comments GLUCOSE RANDOM (BEAKER) (test code 105 mg/dL 70-110 = 652) [id number] 03:11:41 Test Item Value Reference Range Interpretation Comments MAGNESIUM (BEAKER) (test code = 2.4 mg/dL 1.6-2.6 627) Coding Quality Analyst ID - EMLIPID [id number] 03:11:41 Test Item Value Reference Range Interpretation [...] Borderline 130-159 High 160-189 Very High >=190 Coding Quality Analyst ID - [id number] 02:56:31 Test Item Value Reference Range Interpretation Comments PARTIAL THROMBOPLASTIN TIME 32.4 seconds 22.5-36.0 (BEAKER) (test code = 760) PROTHROMBIN [id number] 02:55:56 Test Item Value Reference Range Interpretation Comments PROTIME (BEAKER) 16.3 seconds 11.9-14.2 H (test code = 759) INR (BEAKER) (test 1.35 See_Comment [Automat ed message] code = 370) The system F[employer] generated this result transmitted ref erence range: <=5.90. The reference range was not used to int erpret this result as normal/abnormal . RECOMMENDED COUMADIN/WARFARIN INR THERAPY RANGESSTANDARD DOSE: 2.0 - 3.0 Includes: PROPHYLAXIS for venous thrombosis, systemic embolization; TREATMENT for venous thrombosis and/or pulmonary embolus.HIGH RISK: Target INR is 2.5-3.5 for patients with mechanical heart valves.LACTIC ACID, [id number] 02:53:08 Test Item Value Reference Range Interpretation Comments LACTATE BLOOD ARTERIAL (2) 0.8 mmol/L 0.5-2.0 (BEAKER) (test code = 2874) Coding Quality Analyst ID - ADMINCBC W/PLT COUNT & AUTO [id number] 02:46:37 Test Item Value Reference Range Interpretation [...] 0.00-1.00 PERCENT (BEAKER) (test code = 2801) [id number] 01:16:36 Test Item Value Reference Range Interpretation Comments POTASSIUM (BEAKER) (test code = 4.5 meq/L 3.5-5.1 379) Coding Quality Analyst ID - ADMINLACTIC ACID, [id number] 01:12:59 Test Item Value Reference Range Interpretation Comments LACTATE BLOOD ARTERIAL (2) 0.8 mmol/L 0.5-2.0 (BEAKER) (test code = 2874) Coding Quality Analyst ID - ADMINBLOOD GAS, [id number] 00:27:11 Test Item Value Reference Range Interpretation [...] = 1819) 40.0 HGB/HCT (H&H) - STAT [id number] 00:27:11 Test Item Value Reference Range Interpretation Comments HEMOGLOBIN (BEAKER) (test code = 8.4 GM/DL 12.0-15.0 L 410) HEMATOCRIT (BEAKER) (test code = 25.0 % 36.0-45.0 L 411) POTASSIUM-STAT [id number] 00:26:36 Test Item Value Reference Range Interpretation Comments POTASSIUM (BEAKER) (test code = 4.2 meq/L 3.6-5.5 379) SODIUM NA-STAT [id number] 00:26:35 Test Item Value Reference Range Interpretation Comments SODIUM (BEAKER) (test code = 381) 137 meq/L 136-145 GLUCOSE-STAT [id number] 00:26:34 Test Item Value Reference Range Interpretation Comments GLUCOSE RANDOM (BEAKER) (test code 135 mg/dL 70-110 H = 652) LACTIC ACID, [id number] 22:17:42 Test Item Value Reference Range Interpretation Comments LACTATE BLOOD ARTERIAL (2) 1.5 mmol/L 0.5-2.0 (BEAKER) (test code = 2874) Coding Quality Analyst ID - ADMINHGB/HCT (H&H) - STAT [id number] 22:11:05 Test Item Value Reference Range Interpretation Comments HEMOGLOBIN (BEAKER) (test code = 9.0 GM/DL 12.0-15.0 L 410) HEMATOCRIT (BEAKER) (test code = 26.0 % 36.0-45.0 L 411) BLOOD GAS, [id number] 22:11:04 Test Item Value Reference Range Interpretation [...] (BEAKER) (test code = 1819) 60.0 POTASSIUM-STAT [id number] 22:10:22 Test Item Value Reference Range Interpretation Comments POTASSIUM (BEAKER) (test code = 4.7 meq/L 3.6-5.5 379) GLUCOSE-STAT [id number] 22:10:21 Test Item Value Reference Range Interpretation Comments GLUCOSE RANDOM (BEAKER) (test code 162 mg/dL 70-110 H = 652) SODIUM NA-STAT [id number] 22:10:21 Test Item Value Reference Range Interpretation [...] 1414) XR CHEST 1 VIEW PORTABLE / [id number] 21:21:05 [facility] 1955 Sex: FTECHNIQUE: Frontal view of the chest.INDICATION: s/p ACB; Vent.COMPARISON: 03/06/2023.FINDINGS:LINES/TUBES:Endotracheal tube tip projecting approximately 5.4 cm abovethe level of the yuriy. Left IJ Mary D-Delicia catheter with tip projectingover the right main [...] Signed By: Adrián Alarcon03/15/2023 21:23 CDTWorkstation Name: [id number] 20:28:28 Test Item Value Reference Range Interpretation [...] 2.5-3.5 for patients with mechanical heart valves.PROTHROMBIN TIME/[id number] 20:27:48 Test Item Value Reference Range Interpretation Comments PROTIME (BEAKER) 16.6 seconds 11.9-14.2 H (test code = 759) INR (BEAKER) (test 1.38 See_Comment [Automat ed message] code = 370) The system [employer] h generated this result transmitted ref erence [...] not appl icable for dialysis patien ts Coding Quality Analyst ID - [id number] 20:16:46 Test Item Value Reference Range Interpretation Comments PHOSPHORUS (BEAKER) (test code = 5.1 mg/dL 2.3-4.7 H 604) Coding Quality Analyst ID - [id number] 20:16:45 Test Item Value Reference Range Interpretation Comments MAGNESIUM (BEAKER) (test code = 2.8 mg/dL 1.6-2.6 H 627) Coding Quality Analyst ID - ADMINLACTIC ACID, [id number] 20:10:25 Test Item Value Reference Range Interpretation Comments LACTATE BLOOD 1.7 mmol/L 0.5-2.0 Specimen sligh tly ARTERIAL (2) (BEAKER) hemoly zed (test code = 2874) Coding Quality Analyst ID - EMCBC W/PLT COUNT & AUTO [id number] 20:08:41 Test Item Value Reference Range Interpretation [...] PERCENT (BEAKER) (test code = 2801) CALCIUM, [id number] 20:01:01 Test Item Value Reference Range Interpretation Comments CALCIUM IONIZED (BEAKER) (test 1.26 mmol/L 1.12-1.27 code = 698) PH, BLOOD (BEAKER) (test code = 7.33 1810) HGB/HCT (H&H) - STAT [id number] 20:00:39 Test Item Value Reference Range Interpretation Comments HEMOGLOBIN (BEAKER) (test code = 10.0 GM/DL 12.0-15.0 L 410) HEMATOCRIT (BEAKER) (test code = 29.0 % 36.0-45.0 L 411) BLOOD GAS, [id number] 20:00:33 Test Item Value Reference Range Interpretation [...] (test code = 1819) 60.0 OXYGEN SATURATION, [id number] 19:57:02 Test Item Value Reference Range Interpretation Comments O2 SATURATION (MEASURED) (BEAKER) 63.6 % (test code = 1455) POTASSIUM-STAT [id number] 19:56:44 Test Item Value Reference Range Interpretation Comments POTASSIUM (BEAKER) (test code = 4.8 meq/L 3.6-5.5 379) GLUCOSE-STAT [id number] 19:56:43 Test Item Value Reference Range Interpretation Comments GLUCOSE RANDOM (BEAKER) (test code 207 mg/dL 70-110 H = 652) SODIUM NA-STAT [id number] 19:56:43 Test Item Value Reference Range Interpretation Comments SODIUM (BEAKER) (test code = 381) 137 meq/L 136-145 [id number] 19:07:33 Test Item Value Reference Range Interpretation Comments PARTIAL THROMBOPLASTIN TIME 27.1 seconds 22.5-36.0 (BEAKER) (test code = 760) [id number] 19:07:32 Test Item Value Reference Range Interpretation Comments FIBRINOGEN LEVEL (BEAKER) (test 318 mg/dl 225-434 code = 658) PROTHROMBIN TIME/[id number] 19:07:16 Test Item Value Reference Range Interpretation Comments PROTIME (BEAKER) 17.6 seconds 11.9-14.2 H (test code = 759) INR (BEAKER) (test 1.54 See_Comment [Automat ed message] code = 370) The system [employer] generated this result transmitted ref erence range: <=5.90. The reference range was not used to int erpret this result as normal/abnormal . RECOMMENDED COUMADIN/WARFARIN INR THERAPY RANGESSTANDARD DOSE: 2.0 - 3.0 Includes: PROPHYLAXIS for venous thrombosis, systemic embolization; TREATMENT for venous thrombosis and/or pulmonary embolus.HIGH RISK: Target INR is 2.5-3.5 for patients with mechanical heart valves.CALCIUM, [id number] 19:06:53 Test Item Value Reference Range Interpretation Comments CALCIUM IONIZED (BEAKER) (test 1.25 mmol/L 1.12-1.27 code = 698) PH, BLOOD (BEAKER) (test code = 7.35 6410) HGB/HCT (H&H) - STAT [id number] 19:06:05 Test Item Value Reference Range Interpretation Comments HEMOGLOBIN (BEAKER) (test code = 9.5 GM/DL 12.0-15.0 L 410) HEMATOCRIT (BEAKER) (test code = 28.0 % 36.0-45.0 L 411) BLOOD GAS, [id number] 19:05:59 Test Item Value Reference Range Interpretation [...] (BEAKER) (test code = 1819) 100.0 POTASSIUM-STAT [id number] 19:02:35 Test Item Value Reference Range Interpretation Comments POTASSIUM (BEAKER) (test code = 5.1 meq/L 3.6-5.5 379) SODIUM NA-STAT [id number] 19:02:34 Test Item Value Reference Range Interpretation Comments SODIUM (BEAKER) (test code = 381) 136 meq/L 136-145 GLUCOSE-STAT [id number] 19:02:33 Test Item Value Reference Range Interpretation Comments GLUCOSE RANDOM (BEAKER) (test code 222 mg/dL 70-110 H = 652) PLATELET [id number] 18:50:32 Test Item Value Reference Range Interpretation Comments PLATELET COUNT (BEAKER) (test 142 K/CU MM 150-450 L code = 756) Coding Quality Analyst ID - [id number] (H&H) - STAT [id number] 18:37:10 Test Item Value Reference Range Interpretation Comments HEMOGLOBIN (BEAKER) (test code = 7.8 GM/DL 12.0-15.0 L 410) HEMATOCRIT (BEAKER) (test code = 23.0 % 36.0-45.0 L 411) BLOOD GAS, [id number] 18:37:09 Test Item Value Reference Range Interpretation [...] (BEAKER) (test code = 1819) 100.0 CALCIUM, [id number] 18:36:58 Test Item Value Reference Range Interpretation Comments CALCIUM IONIZED (BEAKER) (test 1.15 mmol/L 1.12-1.27 code = 698) PH, BLOOD (BEAKER) (test code = 7.34 1810) POTASSIUM-STAT [id number] 18:36:35 Test Item Value Reference Range Interpretation Comments POTASSIUM (BEAKER) (test code = 4.7 meq/L 3.6-5.5 379) GLUCOSE-STAT [id number] 18:36:34 Test Item Value Reference Range Interpretation Comments GLUCOSE RANDOM (BEAKER) (test code 234 mg/dL 70-110 H = 652) SODIUM NA-STAT [id number] 18:36:34 Test Item Value Reference Range Interpretation Comments SODIUM (BEAKER) (test code = 381) 138 meq/L 136-145 [id number] 18:22:42 Test Item Value Reference Range Interpretation Comments PARTIAL THROMBOPLASTIN TIME > seconds 22.5-36.0 HH (BEAKER) (test code = 760) CALCIUM, [id number] 17:40:17 Test Item Value Reference Range Interpretation Comments CALCIUM IONIZED (BEAKER) (test 1.19 mmol/L 1.12-1.27 code = 698) PH, BLOOD (BEAKER) (test code = 7.34 1810) HGB/HCT (H&H) - STAT [id number] 17:39:54 Test Item Value Reference Range Interpretation Comments HEMOGLOBIN (BEAKER) (test code = 7.2 GM/DL 12.0-15.0 L 410) HEMATOCRIT (BEAKER) (test code = 21.0 % 36.0-45.0 L 411) BLOOD GAS, [id number] 17:39:53 Test Item Value Reference Range Interpretation [...] (test code = 1819) 100.0 SODIUM NA-STAT [id number] 17:39:41 Test Item Value Reference Range Interpretation Comments SODIUM (BEAKER) (test code = 381) 135 meq/L 136-145 L POTASSIUM-STAT [id number] 17:39:41 Test Item Value Reference Range Interpretation Comments POTASSIUM (BEAKER) (test code = 5.3 meq/L 3.6-5.5 379) GLUCOSE-STAT [id number] 17:39:40 Test Item Value Reference Range Interpretation Comments GLUCOSE RANDOM (BEAKER) (test code 236 mg/dL 70-110 H = 652) HGB/HCT (H&H) - STAT [id number] 17:16:48 Test Item Value Reference Range Interpretation Comments HEMOGLOBIN (BEAKER) (test code = 8.1 GM/DL 12.0-15.0 L 410) HEMATOCRIT (BEAKER) (test code = 24.0 % 36.0-45.0 L 411) BLOOD GAS, [id number] 17:16:42 Test Item Value Reference Range Interpretation [...] (BEAKER) (test code = 1819) 90.0 POTASSIUM-STAT [id number] 17:16:37 Test Item Value Reference Range Interpretation Comments POTASSIUM (BEAKER) (test code = 5.4 meq/L 3.6-5.5 379) SODIUM NA-STAT [id number] 17:16:36 Test Item Value Reference Range Interpretation Comments SODIUM (BEAKER) (test code = 381) 135 meq/L 136-145 L GLUCOSE-STAT [id number] 17:16:35 Test Item Value Reference Range Interpretation Comments GLUCOSE RANDOM (BEAKER) (test code 191 mg/dL 70-110 H = 652) [id number] 17:06:14 Test Item Value Reference Range Interpretation Comments FIBRINOGEN LEVEL (BEAKER) (test 235 mg/dl 225-434 code = 658) PROTHROMBIN [id number] 17:05:50 Test Item Value Reference Range Interpretation Comments PROTIME (BEAKER) 28.0 seconds 11.9-14.2 H (test code = 759) INR (BEAKER) (test 2.72 See_Comment [Automat ed message] code = 370) The system Fliqq generated this result transmitted ref erence range: <=5.90. The reference range was not used to int erpret this result as normal/abnormal . RECOMMENDED COUMADIN/WARFARIN INR THERAPY RANGESSTANDARD DOSE: 2.0 - 3.0 Includes: PROPHYLAXIS for venous thrombosis, systemic embolization; TREATMENT for venous thrombosis and/or pulmonary embolus.HIGH RISK: Target INR is 2.5-3.5 for patients with mechanical heart valves.LACTIC ACID, [id number] 17:02:49 Test Item Value Reference Range Interpretation Comments LACTATE BLOOD ARTERIAL (2) 0.7 mmol/L 0.5-2.0 (BEAKER) (test code = 2874) Coding Quality Analyst ID - EMPLATELET [id number] 16:51:06 Test Item Value Reference Range Interpretation Comments PLATELET COUNT (BEAKER) (test 122 K/CU MM 150-450 L code = 756) Coding Quality Analyst ID - [id number]/HCT (H&H) - STAT [id number] 16:38:49 Test Item Value Reference Range Interpretation Comments HEMOGLOBIN (BEAKER) (test code = 7.8 GM/DL 12.0-15.0 L 410) HEMATOCRIT (BEAKER) (test code = 23.0 % 36.0-45.0 L 411) BLOOD GAS, [id number] 16:38:43 Test Item Value Reference Range Interpretation [...] (BEAKER) (test code = 1819) 80.0 POTASSIUM-STAT [id number] 16:38:26 Test Item Value Reference Range Interpretation Comments POTASSIUM (BEAKER) (test code = 5.3 meq/L 3.6-5.5 379) GLUCOSE-STAT [id number] 16:38:25 Test Item Value Reference Range Interpretation Comments GLUCOSE RANDOM (BEAKER) (test code 181 mg/dL 70-110 H = 652) SODIUM NA-STAT [id number] 16:38:25 Test Item Value Reference Range Interpretation Comments SODIUM (BEAKER) (test code = 381) 137 meq/L 136-145 POTASSIUM-STAT [id number] 16:09:45 Test Item Value Reference Range Interpretation Comments POTASSIUM (BEAKER) (test code = 6.1 meq/L 3.6-5.5 HH 379) SODIUM NA-STAT [id number] 16:03:18 Test Item Value Reference Range Interpretation Comments SODIUM (BEAKER) (test code = 381) 134 meq/L 136-145 L HGB/HCT (H&H) - STAT [id number] 16:03:17 Test Item Value Reference Range Interpretation Comments HEMOGLOBIN (BEAKER) (test code = 8.3 GM/DL 12.0-15.0 L 410) HEMATOCRIT (BEAKER) (test code = 24.0 % 36.0-45.0 L 411) BLOOD GAS, [id number] 16:03:11 Test Item Value Reference Range Interpretation [...] (BEAKER) (test code = 1819) 80.0 GLUCOSE-STAT [id number] 16:02:59 Test Item Value Reference Range Interpretation Comments GLUCOSE RANDOM (BEAKER) (test code 210 mg/dL 70-110 H = 652) LACTIC ACID, [id number] 15:51:13 Test Item Value Reference Range Interpretation Comments LACTATE BLOOD ARTERIAL (2) 1.2 mmol/L 0.5-2.0 (BEAKER) (test code = 2874) Coding Quality Analyst ID - EMSODIUM NA-STAT [id number] 15:35:22 Test Item Value Reference Range Interpretation Comments SODIUM (BEAKER) (test code = 381) 132 meq/L 136-145 L HGB/HCT (H&H) - STAT [id number] 15:35:17 Test Item Value Reference Range Interpretation Comments HEMOGLOBIN (BEAKER) (test code = 8.9 GM/DL 12.0-15.0 L 410) HEMATOCRIT (BEAKER) (test code = 26.0 % 36.0-45.0 L 411) BLOOD GAS, [id number] 15:35:11 Test Item Value Reference Range Interpretation [...] (BEAKER) (test code = 1819) 80.0 POTASSIUM-STAT [id number] 15:34:54 Test Item Value Reference Range Interpretation Comments POTASSIUM (BEAKER) (test code = 5.0 meq/L 3.6-5.5 379) GLUCOSE-STAT [id number] 15:34:49 Test Item Value Reference Range Interpretation Comments GLUCOSE RANDOM (BEAKER) (test code 207 mg/dL 70-110 H = 652) BLOOD GAS, [id number] 12:11:33 Test Item Value Reference Range Interpretation [...] = 1819) 100.0 HGB/HCT (H&H) - STAT [id number] 12:11:33 Test Item Value Reference Range Interpretation Comments HEMOGLOBIN (BEAKER) (test code = 8.1 GM/DL 12.0-15.0 L 410) HEMATOCRIT (BEAKER) (test code = 24.0 % 36.0-45.0 L 411) CALCIUM, [id number] 12:11:32 Test Item Value Reference Range Interpretation Comments CALCIUM IONIZED (BEAKER) (test 1.11 mmol/L 1.12-1.27 L code = 698) PH, BLOOD (BEAKER) (test code = 7.46 1810) SODIUM NA-STAT [id number] 12:10:29 Test Item Value Reference Range Interpretation Comments SODIUM (BEAKER) (test code = 381) 135 meq/L 136-145 L POTASSIUM-STAT [id number] 12:10:29 Test Item Value Reference Range Interpretation Comments POTASSIUM (BEAKER) (test code = 4.1 meq/L 3.6-5.5 379) GLUCOSE-STAT [id number] 12:10:24 Test Item Value Reference Range Interpretation Comments GLUCOSE RANDOM (BEAKER) (test code 164 mg/dL 70-110 H = 652) POCT-GLUCOSE [id number] 08:12:49 Test Item Value Reference Range Interpretation Comments POC-GLUCOSE METER 154 mg/dL 70-110 H : TESTED A T [facility] [address] (BEAKER) (test code = [address] [place], 1538) [address]: Coding Quality Analyst/Techni patricia ID = [id number] for Biju Danielle BASIC METABOLIC [id number] 06:03:10 Test Item Value Reference Range Interpretation [...] not appl icable for dialysis patien ts Coding Quality Analyst ID - [id number] 05:44:32 Test Item Value Reference Range Interpretation Comments PHOSPHORUS (BEAKER) (test code = 4.4 mg/dL 2.3-4.7 604) Coding Quality Analyst ID - [id number] 05:44:31 Test Item Value Reference Range Interpretation Comments MAGNESIUM (BEAKER) (test code = 1.9 mg/dL 1.6-2.6 627) Coding Quality Analyst ID - ADMINCBC (HEMOGRAM ONLY)2023-03-15 05:35:13 Test [...] CELLS (BEAKER) (test code = 413) POCT-GLUCOSE [id number] 22:03:17 Test Item Value Reference Range Interpretation Comments POC-GLUCOSE METER 161 mg/dL 70-110 H : TESTED A T [facility] 6720 (BEAKER) (test code = [facility], 1538) 27450: Coding Quality Analyst/Techni patricia ID = [id number] for PASCALE PARISA MICHAEL POCT-GLUCOSE [id number] 17:56:09 Test Item Value Reference Range Interpretation Comments POC-GLUCOSE METER 237 mg/dL 70-110 H : TESTED A T [facility] 6720 (BEAKER) (test code = [facility] [employer] [facility], 1538) 726[address]: Coding Quality Analyst/Techni patricia ID = [id number] for Hannah cobb (contract)Juan C BASIC METABOLIC [id number] 05:53:39 Test Item Value Reference Range Interpretation [...] not appl icable for dialysis patien ts Coding Quality Analyst ID - [id number] 05:47:10 Test Item Value Reference Range Interpretation Comments PHOSPHORUS (BEAKER) (test code = 5.4 mg/dL 2.3-4.7 H 604) Coding Quality Analyst ID - [id number] 05:47:09 Test Item Value Reference Range Interpretation Comments MAGNESIUM (BEAKER) (test code = 2.0 mg/dL 1.6-2.6 627) Coding Quality Analyst ID - ADMINCBC (HEMOGRAM ONLY)2023-03-14 05:21:44 Test [...] code = 413) CT CHEST WITH IV [id number] 00:04:10 [facility] : 1955 Sex: FEXAM:CT [...] Signed By: Tomas Hamilton03/14/2023 00:07 CDTWorkstation Name: [id number] 22:45:05 Test Item Value Reference Range Interpretation Comments POC-GLUCOSE METER 145 mg/dL 70-110 H : TESTED A T [facility] 6720 (Bugsnag) (test code = [facility], 153) 91460: Coding Quality Analyst/Techni patricia ID = [id number] for Colleen stevenAracelis allen POCT-GLUCOSE [id number] 16:29:49 Test Item Value Reference Range Interpretation Comments POC-GLUCOSE METER 122 mg/dL 70-110 H : TESTED A T [facility] 6720 (Bugsnag) (test code = [facility], 1538) 25320: Coding Quality Analyst/Techni patricia ID = [id number] for Fa ircloth, Lucila POCT-GLUCOSE [id number] 11:46:15 Test Item Value Reference Range Interpretation Comments POC-GLUCOSE METER 168 mg/dL 70-110 H : TESTED A T [facility] 6720 (VenturesityAKER) (test code = [facility], 1538) 73869: Coding Quality Analyst/Techni patricia ID = [id number] for Fa ircloth, Lucila POCT-GLUCOSE [id number] 07:43:21 Test Item Value Reference Range Interpretation Comments POC-GLUCOSE METER 173 mg/dL 70-110 H : TESTED A T [facility] [address] (BEAKER) (test code = [place], 1538) 835[address]: Coding Quality Analyst/Techni patricia ID = [id number] for Lucila Hutchins BASIC METABOLIC [id number] 06:40:10 Test Item Value Reference Range Interpretation [...] not appl icable for dialysis patien ts Coding Quality Analyst ID - [id number] 06:36:46 Test Item Value Reference Range Interpretation Comments PHOSPHORUS (BEAKER) (test code = 4.7 mg/dL 2.3-4.7 604) Coding Quality Analyst ID - [id number] 06:36:45 Test Item Value Reference Range Interpretation Comments MAGNESIUM (BEAKER) (test code = 1.9 mg/dL 1.6-2.6 627) Coding Quality Analyst ID - ADMINCBC (HEMOGRAM ONLY)2023-03-13 04:32:19 Test [...] 0-0 (BEAKER) (test code = 413) POCT-GLUCOSE [id number] 20:48:05 Test Item Value Reference Range Interpretation Comments POC-GLUCOSE METER 243 mg/dL 70-110 H : TESTED A T [facility] 6720 (BEAKER) (test code = [facility], 1538) 32087: Coding Quality Analyst/Techni patricia ID = [id number] for Thierry Mccormick POCT-GLUCOSE [id number] 11:12:18 Test Item Value Reference Range Interpretation Comments POC-GLUCOSE METER 119 mg/dL 70-110 H : TESTED A T [facility] 6720 (BEAKER) (test code = [facility], 1538) 82164: Coding Quality Analyst/Techni patricia ID = [id number] for Amy Rivera POCT-GLUCOSE [id number] 08:10:31 Test Item Value Reference Range Interpretation Comments POC-GLUCOSE METER 147 mg/dL 70-110 H : TESTED A T [facility] [address]20 (BEAKER) (test code = [place], 1538) 29527: Coding Quality Analyst/Techni patricia ID = [id number] for PRESLEY RICARDO BASIC METABOLIC [id number] 04:54:03 Test Item Value Reference Range Interpretation [...] not appl icable for dialysis patien ts Coding Quality Analyst ID - [id number] 04:49:59 Test Item Value Reference Range Interpretation Comments MAGNESIUM (BEAKER) (test code = 2.0 mg/dL 1.6-2.6 627) Coding Quality Analyst ID - [id number] 04:49:59 Test Item Value Reference Range Interpretation Comments PHOSPHORUS (BEAKER) (test code = 6.4 mg/dL 2.3-4.7 H 604) Coding Quality Analyst ID - ADMINCBC (HEMOGRAM ONLY)2023-03-12 04:05:47 Test [...] (test code = 413) HIGH SENSITIVITY TROPONIN [id number] 22:12:43 Test Item Value Reference Range Interpretation Comments HIGH SENSITIVITY 61 pg/ml See_Comment H [Automated message] TROPONIN I (test code = The system which [id number]) generated this result transmitted ref erence range: <=17. Th e reference range was not used to int erpret this result as normal/abnormal . Coding Quality Analyst ID - ADMINThe SMART GRID ENGINEER STAT High Sensitivity Troponin-I results should be used in conjunction with other diagnostic information such as ECG, clinical observations and information, and patientsymptoms to aid in the diagnosis of AR. XR ABDOMEN/KUB 1 VIEW [id number] 21:43:47 [facility] : 1955 Sex: FTECHNIQUE: Supine views of the abdomen.INDICATION: vomiting.COMPARISON: None.FINDINGS/IMPRESSION:Bowel gaspattern is nonspecific with paucity of small bowel gas. Smallvolume of colonic fecal matter present.Status post cholecystectomy. Noacute osseous abnormality. Status post L4-L5 transpedicular screw androd fusion. Moderate degenerative disc disease at L2-L3.Electronically Signed By: Shelton Donaldson03/11/2023 21:45 CDTWorkstation Name: [id number]- GLUCOSE [id number] 20:50:48 Test Item Value Reference Range Interpretation Comments POC-GLUCOSE METER 172 mg/dL 70-110 H : TESTED A T [facility] 6720 (BEAKER) (test code = [facility], 1538) 06768: Coding Quality Analyst/Techni patricia ID = [id number] for Thierry Mccormick POCT-GLUCOSE [id number] 16:50:23 Test Item Value Reference Range Interpretation Comments POC-GLUCOSE METER 153 mg/dL 70-110 H : TESTED A T [facility] 6720 (BEAKER) (test code = [facility] [employer] [facility], 1538) 31827: Coding Quality Analyst/Techni patricia ID = [id number] for pamelaerlinda Kingslye POCT-GLUCOSE [id number] 12:32:46 Test Item Value Reference Range Interpretation Comments POC-GLUCOSE METER 233 mg/dL 70-110 H : TESTED A T [facility] 6720 (BEAKER) (test code = [facility] R [facility], 1538) 93014: Coding Quality Analyst/Techni patricia ID = [id number] for monse Kingsley POCT-GLUCOSE [id number] 08:32:00 Test Item Value Reference Range Interpretation Comments POC-GLUCOSE METER 148 mg/dL 70-110 H : TESTED A T [facility] 6720 (BEAKER) (test code = [facility] Barre[facility], 1538) 18817: Coding Quality Analyst/Techni patricia ID = [id number] for Kingsley Fuller BASIC METABOLIC [id number] 05:03:14 Test Item Value Reference Range Interpretation [...] not appl icable for dialysis patien ts Coding Quality Analyst ID - JAKE [id number] 05:00:14 Test Item Value Reference Range Interpretation Comments MAGNESIUM (BEAKER) (test code = 2.1 mg/dL 1.6-2.6 627) Coding Quality Analyst ID - JAKE [id number] 05:00:14 Test Item Value Reference Range Interpretation Comments PHOSPHORUS (BEAKER) (test code = 5.6 mg/dL 2.3-4.7 H 604) Coding Quality Analyst ID Gali JOSEPH WCBC (HEMOGRAM ONLY)2023-03-11 04:20:00 [...] 0-0 (BEAKER) (test code = 413) BLOOD [id number] 03:00:43 Test Item Value Reference Range Interpretation Comments CULTURE (BEAKER) (test No growth in 5 days code = 1095) BLOOD [id number] 03:00:42 Test Item Value Reference Range Interpretation Comments CULTURE (BEAKER) (test No growth in 5 days code = 1095) POCT-GLUCOSE [id number] 22:16:40 Test Item Value Reference Range Interpretation Comments POC-GLUCOSE METER 168 mg/dL 70-110 H : TESTED A T [facility] 6720 (BEAKER) (test code = [facility], 1538) 39971: Coding Quality Analyst/Techni patricia ID = [id number] for Du breus, Violet POCT-GLUCOSE [id number] 16:24:20 Test Item Value Reference Range Interpretation Comments POC-GLUCOSE METER 114 mg/dL 70-110 H : TESTED A T [facility] 6720 (BEAKER) (test code = [facility], 1538) 31111: Coding Quality Analyst/Techni patricia ID = [id number] for JEROME DUARTE POCT-GLUCOSE [id number] 12:20:28 Test Item Value Reference Range Interpretation Comments POC-GLUCOSE METER 153 mg/dL 70-110 H : TESTED A T [facility] 6720 (BEAKER) (test code = [facility]re[facility] [place], 1538) 74277: Coding Quality Analyst/Techni patricia ID = [id number] for JEROME DUARTE POCT-GLUCOSE [id number] 09:13:42 Test Item Value Reference Range Interpretation Comments POC-GLUCOSE METER 130 mg/dL 70-110 H : TESTED A T [facility] 6720 (BEAKER) (test code = [facility]re[facility], 1538) 67936: Coding Quality Analyst/Techni patricia ID = [id number] for JEROME DUARTE BASIC METABOLIC [id number] 06:16:34 Test Item Value Reference Range Interpretation [...] not appl icable for dialysis patien ts Coding Quality Analyst ID - [id number] 06:08:56 Test Item Value Reference Range Interpretation Comments MAGNESIUM (BEAKER) (test code = 2.0 mg/dL 1.6-2.6 627) Coding Quality Analyst ID - [id number] 06:08:56 Test Item Value Reference Range Interpretation Comments PHOSPHORUS (BEAKER) (test code = 4.2 mg/dL 2.3-4.7 604) Coding Quality Analyst ID - ADMINCBC (HEMOGRAM ONLY)2023-03-10 05:44:11 Test [...] 0-0 (BEAKER) (test code = 413) POCT-GLUCOSE [id number] 22:34:22 Test Item Value Reference Range Interpretation Comments POC-GLUCOSE METER 140 mg/dL 70-110 H : TESTED A T [facility] [address] (BEAKER) (test code = [place], 1538) 92178: Coding Quality Analyst/Techni patricia ID = [id number] for MICHAEL PENALOZA POCT-GLUCOSE [id number] 17:16:18 Test Item Value Reference Range Interpretation Comments POC-GLUCOSE METER 101 mg/dL 70-110 : TESTED A T [facility] 6720 (BEAKER) (test code = [facility], 1538) 34086: Coding Quality Analyst/Techni patricia ID = [id number] for Ashley Valdovinos POCT-GLUCOSE [id number] 11:50:32 Test Item Value Reference Range Interpretation Comments POC-GLUCOSE METER 155 mg/dL 70-110 H : TESTED A T [facility] 6720 (BEAKER) (test code = [facility], 1538) 01222: Coding Quality Analyst/Techni patricia ID = [id number] for Mar Santamaria POCT-GLUCOSE [id number] 08:37:48 Test Item Value Reference Range Interpretation Comments POC-GLUCOSE METER 172 mg/dL 70-110 H : TESTED A T [facility] 6720 (BEAKER) (test code = [facility], 1538) 56319: Coding Quality Analyst/Techni patricia ID = [id number] for Mar Santamaria BASIC METABOLIC [id number] 04:30:36 Test Item Value Reference Range Interpretation [...] not appl icable for dialysis patien ts Coding Quality Analyst ID - [id number] 04:29:33 Test Item Value Reference Range Interpretation Comments PHOSPHORUS (BEAKER) (test code = 6.8 mg/dL 2.3-4.7 H 604) Coding Quality Analyst ID - [id number] 04:29:32 Test Item Value Reference Range Interpretation Comments MAGNESIUM (BEAKER) (test code = 2.1 mg/dL 1.6-2.6 627) Coding Quality Analyst ID - ADMINPROTHROMBIN TIME/[id number] 04:07:04 Test Item Value Reference Range Interpretation Comments PROTIME (BEAKER) 16.6 seconds 11.9-14.2 H (test code = 759) INR (BEAKER) (test 1.38 See_Comment [Automat ed message] code = 370) The system Fliqq generated this result transmitted ref erence range: [...] CELLS (BEAKER) (test code = 413) POCT-GLUCOSE [id number] 21:18:16 Test Item Value Reference Range Interpretation Comments POC-GLUCOSE METER 199 mg/dL 70-110 H : TESTED A T [facility] 6720 (BEAKER) (test code = [facility], [facility]) 69911: Coding Quality Analyst/Techni patricia ID = [id number] for Thierry Mccormick POCT-GLUCOSE [id number] 17:42:45 Test Item Value Reference Range Interpretation Comments POC-GLUCOSE METER 186 mg/dL 70-110 H : TESTED A T [facility] 6720 (BEAKER) (test code = [facility], 153) 86229: Coding Quality Analyst/Techni patricia ID = [id number] for Ke nno, Arnold POCT-GLUCOSE [id number] 11:43:40 Test Item Value Reference Range Interpretation Comments POC-GLUCOSE METER 127 mg/dL 70-110 H : TESTED A T [facility] 6720 (BEAKER) (test code = [facility], 153) 75471: Coding Quality Analyst/Techni patricia ID = [id number] for Matchanickal, S justo POCT-GLUCOSE [id number] 09:02:04 Test Item Value Reference Range Interpretation Comments POC-GLUCOSE METER 111 mg/dL 70-110 H : TESTED A T [facility] 6720 (BEAKER) (test code = [facility], 153) 65419: Coding Quality Analyst/Techni patricia ID = [id number] for Kingsley Fuller BASIC METABOLIC [id number] 06:18:46 Test Item Value Reference Range Interpretation [...] not appl icable for dialysis patien ts Coding Quality Analyst ID - ADMINHEPATIC FUNCTION [id number] 06:04:57 Test Item Value Reference Range Interpretation [...] (test code = 25 U/L 6-55 347) Coding Quality Analyst ID - [id number] 06:04:56 Test Item Value Reference Range Interpretation Comments MAGNESIUM (BEAKER) (test code = 2.0 mg/dL 1.6-2.6 627) Coding Quality Analyst ID - [id number] 06:04:56 Test Item Value Reference Range Interpretation Comments PHOSPHORUS (BEAKER) (test code = 5.8 mg/dL 2.3-4.7 H 604) Coding Quality Analyst ID - ADMINCBC (HEMOGRAM ONLY)2023-03-08 05:43:26 Test [...] 0-0 (BEAKER) (test code = 413) POCT-GLUCOSE [id number] 21:37:28 Test Item Value Reference Range Interpretation Comments POC-GLUCOSE METER 117 mg/dL 70-110 H : TESTED A T [facility] 6720 (BEAKER) (test code = SARMAD Barreto [facility], 1538) [address]: Coding Quality Analyst/Techni patricia ID = [id number] for LESLI MORLEY CT BRAIN WITHOUT IV [id number] 07:08:22 [facility] COLLEEN : 1955 Sex: FCT Head without contrastCLINICAL [...] Signed By: Jeferson Novak03/07/2023 07:10 CDTWorkstation Name: [id number] METABOLIC [id number] 03:31:07 Test Item Value Reference Range Interpretation [...] not appl icable for dialysis patien ts Coding Quality Analyst ID - ADMINCBC W/PLT COUNT & AUTO [id number] 03:15:35 Test Item Value Reference Range Interpretation [...] PERCENT (BEAKER) (test code = 2801) POCT-GLUCOSE [id number] 22:50:12 Test Item Value Reference Range Interpretation Comments POC-GLUCOSE METER 104 mg/dL 70-110 : TESTED A T [facility] 6720 (BEAKER) (test code = [facility] - [employer], 153) [address]95: Coding Quality Analyst/Techni patricia ID = [id number] for MICHAEL PENALOZA POCT-GLUCOSE [id number] 16:58:37 Test Item Value Reference Range Interpretation Comments POC-GLUCOSE METER 80 mg/dL 70-110 : TESTED A T [facility] 6720 (BEAKER) (test code = [facility] [employer] [employer], 153) 97177: Coding Quality Analyst/Techni patricia ID = [id number] for Nikolai connell Biju HEPATITIS B SURFACE [id number] 14:54:34 Test Item Value Reference Range Interpretation Comments HEPATITIS B SURFACE ANTIGEN (2) Nonreactive Nonreactive (BEAKER) (test code = 2585) Specimen is considered negative for HBsAg.POCT-GLUCOSE [id number] 14:04:25 Test Item Value Reference Range Interpretation Comments POC-GLUCOSE METER 87 mg/dL 70-110 : TESTED A T [facility] 6720 ([facility]) (test code = SARMAD Barreto [facility], 1538) 23553: Coding Quality Analyst/Techni patricia ID = [id number] for Biju Ibarra HEMOGLOBIN [id number] 12:32:12 Test Item Value Reference Range Interpretation Comments HEMOGLOBIN A1C 5.9 % See_Comment H [Automated m essage] ELECTROPHORESIS (TRAN) The system which (test code = 3811) generated this result transmitted ref erence range: <=5.6%. The reference range was not used to int erpret this result as normal/abnormal . "The A1c is measured using a NGS-certified method. HbA1c value equal to or greater than 6.5% as thediagnosis cutoff for diabetes. An HbA1c value of 5.7- 6.4% indicates increased risk for diabetes (prediabetes)."Coding Quality Analyst ID - [id number] ID - [id number] ID - ADMPOCT-GLUCOSE [id number] 10:32:20 Test Item Value Reference Range Interpretation Comments POC-GLUCOSE METER 87 mg/dL 70-110 : [facility] (test code = SARMAD Barreto [facility], 1538) [address]: Coding Quality Analyst/Techni patricia ID = [id number] for Biju Ibarra XR KNEE 1 OR 2 VIEWS [id number] 10:23:39 [facility] 1955 Sex: FCLINICAL [...] Signed By: Garret Morel03/06/2023 10:25 CDTWorkstation Name: [id number] KNEE 1 OR 2 VIEWS [id number] 10:23:39 [facility] COLLEEN : 1955 Sex: [...] Signed By: Garret Morel03/06/2023 10:25 CDTWorkstation Name: [id number] D, 21-[id number] 05:09:13 Test Item Value Reference Range Interpretation Comments VITAMIN D 25-OH (BEAKER) (test 45.0 ng/mL 6.6-49.9 code = 2764) Effective 04/18/2017: Reference Range ChangeNew: 6.6-49.9 ng/mL Previous: 13.0- 47.8 ng/mLRecommendedVitamin D Target Range: 30.0-40.0 ng/mLOperator ID - ADMIN VANCOMYCIN LEVEL, [id number] 05:02:30 Test Item Value Reference Range Interpretation Comments VANCOMYCIN RANDOM (BEAKER) (test 14.5 ug/mL code = 523) Reference Range: No NormalsOperator ID - ADMINPTH, [id number] 04:47:29 Test Item Value Reference Range Interpretation Comments PARATHYROID HORMONE INTACT 438.8 pg/mL 8.5-72.5 H (BEAKER) (test code = 577) Coding Quality Analyst ID - ADMINLACTIC ACID, [id number] 02:49:21 Test Item Value Reference Range Interpretation Comments LACTATE BLOOD VENOUS (2) (BEAKER) 0.85 mmol/L 0.50-2.00 (test code = 2872) Coding Quality Analyst ID - ADMINLIPID [id number] 02:07:07 Test Item Value Reference Range Interpretation [...] Borderline 130-159 High 160-189 Very High >=190 Coding Quality Analyst ID - ADMINCOMPREHENSIVE METABOLIC [id number] 01:49:14 Test Item Value Reference Range Interpretation [...] not appl icable for dialysis patien ts Coding Quality Analyst ID - ADMINHIGH SENSITIVITY TROPONIN [id number] 01:49:09 Test Item Value Reference Range Interpretation Comments HIGH SENSITIVITY 50 pg/ml See_Comment H [Automated message] TROPONIN I (test code = The system which 8927781) generated this result transmitted ref erence range: <=17. Th e reference range was not used to int erpret this result as normal/abnormal . Coding Quality Analyst ID - ADMINThe SMART GRID ENGINEER STAT High Sensitivity Troponin-I results should be used in conjunction with other diagnostic information such as ECG, clinical observations and information, and patientsymptoms to aid in the diagnosis of AR. B-TYPE NATRIURETIC FACTOR (BNP)2023-03-06 01:48:05 Test Item Value Reference Range Interpretation Comments B-TYPE NATRIURETIC PEPTIDE 2119 pg/mL 0-100 H (BEAKER) (test code = 700) Coding Quality Analyst ID - [id number] 01:47:32 Test Item Value Reference Range Interpretation Comments MAGNESIUM (BEAKER) (test code = 2.0 mg/dL 1.6-2.6 627) Coding Quality Analyst ID - [id number] 01:47:32 Test Item Value Reference Range Interpretation Comments PHOSPHORUS (BEAKER) (test code = 8.1 mg/dL 2.3-4.7 H 604) Coding Quality Analyst ID - ADMINPROTHROMBIN TIME/[id number] 01:41:06 Test Item Value Reference Range Interpretation [...] mechanical heart valves.CBC W/PLT COUNT & AUTO [id number] 01:38:18 Test Item Value Reference Range Interpretation [...] 2801) XR CHEST 1 VIEW PORTABLE / [id number] 01:36:37 [facility] : 1955 Sex: FAP portable chest x-ray. History hypoxia.FINDINGS: There is confluent airspace disease in the left lung anddiffuse severe interstitial opacification of both lungs. The heart sizeis normal.IMPRESSION:Diffuse bilateral pneumonia with pulmonary edema patternalso. Normal heart size. Consider follow-up CT scan of the chest.Electronically Signed By: Jhoan Patel03/06/2023 01:38 CDTWorkstation Name: [id number] 01:24:36 Test Item Value Reference Range Interpretation Comments POC-HEMATOCRIT 17 % 36-45 L : Coding Quality Analyst/Te chnician ID = ([facility]) (test code = 193640 for DESIRE KING 1856) [id number] 01:24:36 Test Item Value Reference Range Interpretation Comments POC-GLUCOSE ([facility]) 76 mg/dL 70-110 : TESTE D AT [place] [address] (test code = 1855) [place], [address]: Coding Quality Analyst/Techni patricia ID = [id number] for DESIRE NAYLOR [id number] 01:24:35 Test Item Value Reference Range Interpretation Comments POC-HEMOGLOBIN 5.8 g/dL 12.0-15.0 LL : TESTED AT [place] [address] ([facility]) (test code = [place], 1856) [address]: Coding Quality Analyst/Techni patricia ID = [id number] for DESIRE NAYLOR [id number] 01:24:30 Test Item Value Reference Range Interpretation Comments POC-SODIUM ([facility]) 138 meq/L 135-148 : TESTED AT [place] [address] (test code = 1542) [facility], [address]: Coding Quality Analyst/Techni patricia ID = [id number] for DESIRE NAYLOR [id number] 01:24:30 Test Item Value Reference Range Interpretation Comments POC-POTASSIUM 3.3 meq/L 3.6-5.5 L : TESTED AT [facility] 6720 (BEAKER) (test code [facility], = 1540) [address]: Coding Quality Analyst/Techni patricia ID = [id number] for DESIRE NAYLOR POCT-BLOOD GASES, [id number] 01:24:29 Test Item Value Reference Range Interpretation [...] -7.0 meq/L -2.0-3.0 L : TESTED AT [facility] 6720 ARTERIAL-POC [facility], (BEAKER) (test code [address]: = 1841) Coding Quality Analyst/Techni patricia ID = [id number] for DESIRE NAYLOR POCT-GLUCOSE [id number] 00:59:59 Test Item Value Reference Range Interpretation Comments POC-GLUCOSE METER 85 mg/dL 70-110 : TESTED A T [facility] 6720 (BEAKER) (test code = [facility], 1538) [address]: Coding Quality Analyst/Techni patricia ID = [id number] for Aracelis Duarte POCT GLUCOSE (AUTOMATED)2022-12-22 16:45:56 Test Item Value Reference Range Interpretation Comments POCT GLU (test code = 9167453385) 137 mg/dL 70-110 H Lab Interpretation (test code = Abnormal 66686-1) [facility] GLUCOSE (AUTOMATED)2022-12-22 16:45:56 Test Item Value Reference Range Interpretation Comments POCT GLU (test code = 6235476635) 137 mg/dL 70-110 H Lab Interpretation (test code = Abnormal 32099-6) [facility] GLUCOSE (AUTOMATED)2022-12-22 11:07:25 Test Item Value Reference Range Interpretation Comments POCT GLU (test code = 8772901794) 97 mg/dL 70-110 Lab Interpretation (test code = Normal 52265-0) [facility] GLUCOSE (AUTOMATED)2022-12-22 11:07:25 Test Item Value Reference Range Interpretation Comments POCT GLU (test code = 7759875665) 97 mg/dL 70-110 Lab Interpretation (test code = Normal 73060-4) [facility] GLUCOSE (AUTOMATED)2022-12-22 05:06:33 Test Item Value Reference Range Interpretation Comments POCT GLU (test code = 0165856825) 117 mg/dL 70-110 H Lab Interpretation (test code = Abnormal 57708-9) [facility] GLUCOSE (AUTOMATED)2022-12-22 05:06:33 Test Item Value Reference Range Interpretation Comments POCT GLU (test code = 1130097751) 117 mg/dL 70-110 H Lab Interpretation (test code = Abnormal 38349-5) [facility] GLUCOSE (AUTOMATED)2022-12-21 23:17:30 Test Item Value Reference Range Interpretation Comments POCT GLU (test code = 3667559233) 77 mg/dL 70-110 Lab Interpretation (test code = Normal 65154-4) [facility] GLUCOSE (AUTOMATED)2022-12-21 23:17:30 Test Item Value Reference Range Interpretation Comments POCT GLU (test code = 1357302942) 77 mg/dL 70-110 Lab Interpretation (test code = Normal 76734-6) [facility] GLUCOSE (AUTOMATED)2022-12-21 17:17:55 Test Item Value Reference Range Interpretation Comments POCT GLU (test code = 1248358897) 120 mg/dL 70-110 H Lab Interpretation (test code = Abnormal 71936-7) [facility] GLUCOSE (AUTOMATED)2022-12-21 17:17:55 Test Item Value Reference Range Interpretation Comments POCT GLU (test code = 4550057120) 120 mg/dL 70-110 H Lab Interpretation (test code = Abnormal 21235-2) [facility] GLUCOSE (AUTOMATED)2022-12-21 11:10:25 Test Item Value Reference Range Interpretation Comments POCT GLU (test code = 5499383419) 114 mg/dL 70-110 H Lab Interpretation (test code = Abnormal 15525-6) [facility] GLUCOSE (AUTOMATED)2022-12-21 11:10:25 Test Item Value Reference Range Interpretation Comments POCT GLU (test code = 0189449244) 114 mg/dL 70-110 H Lab Interpretation (test code = Abnormal 29820-9) [facility] CULTURE [id number] 11:01:49 Test Item Value Reference Range Interpretation Comments Blood Culture-Aerobic No organisms No growth Previo us (test code = 34898-6) isolated prelim inary verified result was Culture [...] Culture-Anaerobic isolated preliminar y (test code = 56785-9) verifi ed result was Culture In Progress [...] CDT Lab Interpretation Normal (test code = 21300-9) [facility] CULTURE [id number] 11:01:49 Test Item Value Reference Range Interpretation Comments Blood Culture-Aerobic No organisms No growth Previo us (test code = 39759-1) isolated prelim inary verified result was Culture [...] Culture-Anaerobic isolated preliminar y (test code = 99263-4) verifi ed result was Culture In Progress [...] CDT Lab Interpretation Normal (test code = 05738-5) [facility] GLUCOSE (AUTOMATED)2022-12-21 05:17:25 Test Item Value Reference Range Interpretation Comments POCT GLU (test code = 7444774415) 120 mg/dL 70-110 H Lab Interpretation (test code = Abnormal 76862-4) [facility] GLUCOSE (AUTOMATED)2022-12-21 05:17:25 Test Item Value Reference Range Interpretation Comments POCT GLU (test code = 5166449229) 120 mg/dL 70-110 H Lab Interpretation (test code = Abnormal 87274-2) [facility] GLUCOSE (AUTOMATED)2022-12-20 23:02:14 Test Item Value Reference Range Interpretation Comments POCT GLU (test code = 3129908567) 155 mg/dL 70-110 H Lab Interpretation (test code = Abnormal 64497-5) [facility] GLUCOSE (AUTOMATED)2022-12-20 23:02:14 Test Item Value Reference Range Interpretation Comments POCT GLU (test code = 7513285932) 155 mg/dL 70-110 H Lab Interpretation (test code = Abnormal 39538-6) [facility] GLUCOSE (AUTOMATED)2022-12-20 16:58:40 Test Item Value Reference Range Interpretation Comments POCT GLU (test code = 2329584753) 150 mg/dL 70-110 H Lab Interpretation (test code = Abnormal 34142-9) [facility] 16:58:40 Test Item Value Reference Range Interpretation Comments POCT GLU (test code = 6881688529) 150 mg/dL 70-110 H Lab Interpretation (test code = Abnormal 57813-2) [facility] Test Item Value Reference Range Interpretation Comments MAGNESIUM (test code = 0861689725) 1.7 mg/dL 1.7-2.4 Lab Interpretation (test code = Normal 27014-2) [facility] 10:30:39 Test Item Value Reference Range Interpretation Comments MAGNESIUM (test code = 9431918403) 1.7 mg/dL 1.7-2.4 Lab Interpretation (test code = Normal 85415-8) [facility] METABOLIC PANEL (NA, K, CL, CO2, GLUCOSE, BUN, CREATININE, CA)2022-12-20 10:30:38 Test Item Value Reference Range Interpretation Comments NA (test code = 136 mmol/L 135-145 4147903588) K (test code = 4.1 mmol/L 3.5-5.0 6484669207) CL (test code = 101 mmol/L 98-108 4941050017) CO2 TOTAL (test code = 24 mmol/L 23-31 7499773592) AGAP (test code = 11 2-16 9131903274) BUN (test code = 46 mg/dL 7-23 H 2070815999) GLUCOSE (test code = 134 mg/dL 70-110 H 3547942146) CREATININE (test code = 4.18 mg/dL 0.50-1.04 H 9032890953) CALCIUM (test code = 8.5 mg/dL 8.6-10.6 L 0212993894) eGFR (test code = 10.6 mL/min/1.73m2 2966186025) BRAD (test code = BRAD) Association of [...] tests). Lab Interpretation Abnormal (test code = 40332-3) [facility] METABOLIC PANEL (NA, K, CL, CO2, GLUCOSE, BUN, CREATININE, CA)2022-12-20 10:30:38 Test Item Value Reference Range Interpretation Comments NA (test code = 136 mmol/L 135-145 3458244171) K (test code = 4.1 mmol/L 3.5-5.0 9553337894) CL (test code = 101 mmol/L 98-108 5529747800) CO2 TOTAL (test code = 24 mmol/L 23-31 2934864476) AGAP (test code = 11 2-16 3604023550) BUN (test code = 46 mg/dL 7-23 H 8306302155) GLUCOSE (test code = 134 mg/dL 70-110 H 4903976803) CREATININE (test code = 4.18 mg/dL 0.50-1.04 H 8167688087) CALCIUM (test code = 8.5 mg/dL 8.6-10.6 L 0764696514) eGFR (test code = 10.6 mL/min/1.73m2 5658630839) BRAD (test code = BRAD) Association of [...] tests). Lab Interpretation Abnormal (test code = 03358-5) [facility] (ALB,T.PRO,BILI T,BU/BC,ALT,AST,ALK PHOS)2022-12-20 10:30:18 Test Item Value Reference Range Interpretation Comments TOTAL BILI (test code = 0784133076) 0.5 mg/dL 0.1-1.1 BILI UNCON (test code = 7979439190) 0.0 mg/dL 0.1-1.1 L BILI CONJ (test code = 8860239677) 0.0 mg/dL 0.0-0.3 T PROTEIN (test code = 2763619286) 5.9 g/dL 6.3-8.2 L ALBUMIN (test code = 9981830846) 2.9 g/dL 3.5-5.0 L ALK PHOS (test code = 4980331446) 183 U/L 34-122 H ALTv (test code = 1742-6) 10 U/L 5-35 AST(SGOT) (test code = 6905979856) 46 U/L 13-40 H Lab Interpretation (test code = Abnormal 85110-1) [facility] 10:30:18 Test Item Value Reference Range Interpretation Comments PHOSPHORUS (test code = 2128444121) 4.4 mg/dL 2.5-5.0 Lab Interpretation (test code = Normal 48119-1) [facility]59825[facility] (ALB,T.PRO,BILI T,BU/BC,ALT,AST,ALK PHOS)2022-12-20 10:30:18 Test Item Value Reference Range Interpretation Comments TOTAL BILI (test code = 1940314853) 0.5 mg/dL 0.1-1.1 BILI UNCON (test code = 1185015799) 0.0 mg/dL 0.1-1.1 L BILI CONJ (test code = 4281055296) 0.0 mg/dL 0.0-0.3 T PROTEIN (test code = 8907421087) 5.9 g/dL 6.3-8.2 L ALBUMIN (test code = 1957823221) 2.9 g/dL 3.5-5.0 L ALK PHOS (test code = 7320097034) 183 U/L 34-122 H ALTv (test code = 1742-6) 10 U/L 5-35 AST(SGOT) (test code = 4609002415) 46 U/L 13-40 H Lab Interpretation (test code = Abnormal 02775-9) [facility] 10:30:18 Test Item Value Reference Range Interpretation Comments PHOSPHORUS (test code = 4659732164) 4.4 mg/dL 2.5-5.0 Lab Interpretation (test code = Normal 43957-0) [facility] [id number] 10:01:54 Test Item Value Reference Range Interpretation Comments WBC (test code = 9.51 See_Comment [Automated 0490-2) message] The sy stem which generated this [...] (test code = 51.4 fL 39.0-49.9 H 25363-6) RDW-CV (test code = 15.2 % 12.0-15.5 788-0) PLT (test code = 167 See_Comment [Automated 777-3) message] The sy stem which generated this result transmitted reference range : 166 - 358 10*3/ ?L. The reference r chikis was not used to interpret this result as normal/abnormal . MPV (test code = 9.5 fL 9.5-12.9 91293-3) NRBC/100 WBC (test 0.0 See_Comment [Automat ed code = 1336293295) message] The system which generated this result transmitted reference range : 0.0 - 10.0 /100 WBCs. The refer ence range was not u sed to interpret th is result as normal/abnormal . NRBC x10^3 (test code See_Comment [Auto mated = 3591962740) message] The s ystem which generated this result transmitted reference range : 10*3/?L. The reference range was not used to interpret this result as normal/abnormal . GRAN MAT (NEUT) % 76.9 % (test code = 770-8) IMM GRAN % (test code 1.10 % = 5958260339) LYMPH % (test code = 12.5 % 736-9) MONO % (test code = 6.6 % 5905-5) EOS % (test code = 2.7 % 713-8) BASO % (test code = 0.2 % 706-2) GRAN MAT x10^3(ANC) 7.31 10*3/uL 1.88-7.09 H (test code = 3784767683) IMM GRAN x10^3 (test 0.10 10*3/uL 0.00-0.06 H code = 1670278960) LYMPH x10^3 (test code 1.19 10*3/uL 1.32-3.29 L = 731-0) MONO x10^3 (test code 0.63 10*3/uL 0.33-0.92 = 742-7) EOS x10^3 (test code = 0.26 10*3/uL 0.03-0.39 711-2) BASO x10^3 (test code 0.01-0.07 = 704-7) Lab Interpretation Abnormal (test code = 41702-5) [facility] WITH [id number] 10:01:54 Test Item Value Reference Range Interpretation Comments WBC (test code = 9.51 See_Comment [Automated 1390-2) message] The sy stem which generated this result transmitted reference range : 4.30 - 11.10 10*3/?L. The reference range was not used to interpret this result as normal/abnormal . RBC (test code = 2.60 See_Comment L [Automated 429-8) message] The sy stem which generated this [...] (test code = 51.4 fL 39.0-49.9 H 39784-5) RDW-CV (test code = 15.2 % 12.0-15.5 788-0) PLT (test code = 167 See_Comment [Automated 777-3) message] The sy stem which generated this result transmitted reference range : 166 - 358 10*3/ ?L. The reference r chikis was not used to interpret this result as normal/abnormal . MPV (test code = 9.5 fL 9.5-12.9 43391-3) NRBC/100 WBC (test 0.0 See_Comment [Automat ed code = 9993324002) message] The system which generated this result transmitted reference range : 0.0 - 10.0 /100 WBCs. The refer ence range was not u sed to interpret th is result as normal/abnormal . NRBC x10^3 (test code See_Comment [Auto mated = 2452103413) message] The s ystem which generated this result transmitted reference range : 10*3/?L. The reference range was not used to interpret this result as normal/abnormal . GRAN MAT (NEUT) % 76.9 % (test code = 770-8) IMM GRAN % (test code 1.10 % = 2407604495) LYMPH % (test code = 12.5 % 736-9) MONO % (test code = 6.6 % 5905-5) EOS % (test code = 2.7 % 713-8) BASO % (test code = 0.2 % 706-2) GRAN MAT x10^3(ANC) 7.31 10*3/uL 1.88-7.09 H (test code = 1519775956) IMM GRAN x10^3 (test 0.10 10*3/uL 0.00-0.06 H code = 0769970863) LYMPH x10^3 (test code 1.19 10*3/uL 1.32-3.29 L = 731-0) MONO x10^3 (test code 0.63 10*3/uL 0.33-0.92 = 742-7) EOS x10^3 (test code = 0.26 10*3/uL 0.03-0.39 711-2) BASO x10^3 (test code 0.01-0.07 = 704-7) Lab Interpretation Abnormal (test code = 32066-2) [facility]-20 09:11:49 Test Item Value Reference Range Interpretation Comments POCT GLU (test code = 1108553786) 145 mg/dL 70-110 H Lab Interpretation (test code = Abnormal 80579-7) [facility] GLUCOSE (AUTOMATED)2022-12-20 09:11:49 Test Item Value Reference Range Interpretation Comments POCT GLU (test code = 2199326832) 145 mg/dL 70-110 H Lab Interpretation (test code = Abnormal 01002-4) [facility] GLUCOSE (AUTOMATED)2022-12-20 05:18:45 Test Item Value Reference Range Interpretation Comments POCT GLU (test code = 0139567421) 137 mg/dL 70-110 H Lab Interpretation (test code = Abnormal 15604-7) [facility] GLUCOSE (AUTOMATED)2022-12-20 05:18:45 Test Item Value Reference Range Interpretation Comments POCT GLU (test code = 7575995551) 137 mg/dL 70-110 H Lab Interpretation (test code = Abnormal 50814-3) [facility] GLUCOSE (AUTOMATED)2022-12-19 23:10:55 Test Item Value Reference Range Interpretation Comments POCT GLU (test code = 2619940731) 171 mg/dL 70-110 H Lab Interpretation (test code = Abnormal 02108-7) [facility] GLUCOSE (AUTOMATED)2022-12-19 23:10:55 Test Item Value Reference Range Interpretation Comments POCT GLU (test code = 0045265242) 171 mg/dL 70-110 H Lab Interpretation (test code = Abnormal 44806-8) [facility] GLUCOSE (AUTOMATED)2022-12-19 16:54:04 Test Item Value Reference Range Interpretation Comments POCT GLU (test code = 1475270269) 152 mg/dL 70-110 H Lab Interpretation (test code = Abnormal 35489-2) [facility] GLUCOSE (AUTOMATED)2022-12-19 16:54:04 Test Item Value Reference Range Interpretation Comments POCT GLU (test code = 6924426881) 152 mg/dL 70-110 H Lab Interpretation (test code = Abnormal 51205-2) [facility]-19 11:09:49 Test Item Value Reference Range Interpretation Comments POCT GLU (test code = 5217663116) 113 mg/dL 70-110 H Lab Interpretation (test code = Abnormal 72873-3) [facility] GLUCOSE (AUTOMATED)2022-12-19 11:09:49 Test Item Value Reference Range Interpretation Comments POCT GLU (test code = 9871168862) 113 mg/dL 70-110 H Lab Interpretation (test code = Abnormal 39283-0) [facility] GLUCOSE (AUTOMATED)2022-12-19 05:06:10 Test Item Value Reference Range Interpretation Comments POCT GLU (test code = 3804978603) 131 mg/dL 70-110 H Lab Interpretation (test code = Abnormal 82672-7) [facility] GLUCOSE (AUTOMATED)2022-12-19 05:06:10 Test Item Value Reference Range Interpretation Comments POCT GLU (test code = 6296465554) 131 mg/dL 70-110 H Lab Interpretation (test code = Abnormal 41669-3) [facility]2022-12-18 22:59:48 Test Item Value Reference Range Interpretation Comments POCT GLU (test code = 7638121923) 133 mg/dL 70-110 H Lab Interpretation (test code = Abnormal 15075-2) [facility] GLUCOSE (AUTOMATED)2022-12-18 22:59:48 Test Item Value Reference Range Interpretation Comments POCT GLU (test code = 5648305134) 133 mg/dL 70-110 H Lab Interpretation (test code = Abnormal 47718-3) [facility]18 16:36:14 Test Item Value Reference Range Interpretation Comments POCT GLU (test code = 4023006622) 171 mg/dL 70-110 H Lab Interpretation (test code = Abnormal 68034-2) [facility]18 16:36:14 Test Item Value Reference Range Interpretation Comments POCT GLU (test code = 2756390183) 171 mg/dL 70-110 H Lab Interpretation (test code = Abnormal 18539-4) [facility] GLUCOSE (AUTOMATED)2022-12-18 10:49:33 Test Item Value Reference Range Interpretation Comments POCT GLU (test code = 8795893559) 116 mg/dL 70-110 H Lab Interpretation (test code = Abnormal 89392-4) [facility] GLUCOSE (AUTOMATED)2022-12-18 10:49:33 Test Item Value Reference Range Interpretation Comments POCT GLU (test code = 5223724206) 116 mg/dL 70-110 H Lab Interpretation (test code = Abnormal 10517-5) [facility] GLUCOSE (AUTOMATED)2022-12-18 05:43:21 Test Item Value Reference Range Interpretation Comments POCT GLU (test code = 8352179517) 119 mg/dL 70-110 H Lab Interpretation (test code = Abnormal 52249-0) [facility] GLUCOSE (AUTOMATED)2022-12-18 05:43:21 Test Item Value Reference Range Interpretation Comments POCT GLU (test code = 0372359497) 119 mg/dL 70-110 H Lab Interpretation (test code = Abnormal 62848-3) [facility] GLUCOSE (AUTOMATED)2022-12-17 23:28:43 Test Item Value Reference Range Interpretation Comments POCT GLU (test code = 5807427563) 102 mg/dL 70-110 Lab Interpretation (test code = Normal 81471-1) [facility] GLUCOSE (AUTOMATED)2022-12-17 23:28:43 Test Item Value Reference Range Interpretation Comments POCT GLU (test code = 9146884948) 102 mg/dL 70-110 Lab Interpretation (test code = Normal 51232-9) [facility] GLUCOSE (AUTOMATED)2022-12-17 17:00:09 Test Item Value Reference Range Interpretation Comments POCT GLU (test code = 5711780215) 135 mg/dL 70-110 H Lab Interpretation (test code = Abnormal 42673-3) [facility] GLUCOSE (AUTOMATED)2022-12-17 17:00:09 Test Item Value Reference Range Interpretation Comments POCT GLU (test code = 8063505149) 135 mg/dL 70-110 H Lab Interpretation (test code = Abnormal 05280-0) [facility] [id number] 13:40:27 Test Item Value Reference Range Interpretation Comments Blood Culture-Aerobic Culture positive. No growth AA P revious (test code = 95787-3) See Blood Culture p reliminary Workup for verified result additional was Culture In information. Progress on 12/15/2022 at 062 6 CDT Blood Culture positive. No growth AA Previous Culture-Anaerobic See Blood Culture preli minary (test code = 26736-4) Workup for verifi ed result additional was Culture In information. Progress on 12/14/2022 at 220 1 CDT Lab Interpretation Abnormal (test code = 73072-1) [facility] Culture - Peripheral # [id number] 13:40:27 Test Item Value Reference Range Interpretation Comments Blood Culture-Aerobic Culture positive. No growth AA P revious (test code = 10556-0) See Blood Culture p reliminary Workup for verified result additional was Culture In information. Progress on 12/15/2022 at 062 7 CDT Blood Culture positive. No growth AA Previous Culture-Anaerobic See Blood Culture preli minary (test code = 09137-3) Workup for verifi ed result additional was Culture In information. Progress on 12/14/2022 at 220 1 CDT Lab Interpretation Abnormal (test code = 14580-5) [facility] CULTURE [id number] 13:40:27 Test Item Value Reference Range Interpretation Comments Blood Culture Staphylococcus aureus Organ ism identified Workup (test by DNA probeFor code = 600-7) susceptibility results, refer to culture # - [id number] Gram stain Isolated from aerobic This i s an appended (test code = bottle Gram positive report. These 664-3) cocci results have be en appended to a previously preliminary wesley ified report. [facility] Culture - Peripheral # [id number] 13:40:27 Test Item Value Reference Range Interpretation Comments Blood Culture-Aerobic Culture positive. No growth AA P revious (test code = 99160-1) See Blood Culture p reliminary Workup for verified result additional was Culture In information. Progress on 12/15/2022 at 062 6 CDT Blood Culture positive. No growth AA Previous Culture-Anaerobic See Blood Culture preli minary (test code = 67396-7) Workup for verifi ed result additional was Culture In information. Progress on 12/14/2022 at 220 1 CDT Lab Interpretation Abnormal (test code = 42005-9) [facility] Culture - Peripheral # 13:40:27 Test Item Value Reference Range Interpretation Comments Blood Culture-Aerobic Culture positive. No growth AA P revious (test code = 64141-1) See Blood Culture p reliminary Workup for verified result additional was Culture In information. Progress on 12/15/2022 at 062 7 CDT Blood Culture positive. No growth AA Previous Culture-Anaerobic See Blood Culture preli minary (test code = 72802-4) Workup for verifi ed result additional was Culture In information. Progress on 12/14/2022 at 220 1 CDT Lab Interpretation Abnormal (test code = 69307-1) [facility] CULTURE [id number] 13:40:27 Test Item Value Reference Range Interpretation Comments Blood Culture Staphylococcus aureus Organ ism identified Workup (test by DNA probeFor code = 600-7) susceptibility results, refer to culture # - [id number] Gram stain Isolated from aerobic This i s an appended (test code = bottle Gram positive report. These 664-3) cocci results have be en appended to a previously preliminary wesley ified report. [facility] GLUCOSE (AUTOMATED)2022-12-17 10:41:20 Test Item Value Reference Range Interpretation Comments POCT GLU (test code = 6737706209) 92 mg/dL 70-110 Lab Interpretation (test code = Normal 20414-5) [facility] GLUCOSE (AUTOMATED)2022-12-17 10:41:20 Test Item Value Reference Range Interpretation Comments POCT GLU (test code = 8051975787) 92 mg/dL 70-110 Lab Interpretation (test code = Normal 65995-4) [facility] GLUCOSE (AUTOMATED)2022-12-17 04:21:25 Test Item Value Reference Range Interpretation Comments POCT GLU (test code = 3709204915) 122 mg/dL 70-110 H Lab Interpretation (test code = Abnormal 48113-0) [facility] GLUCOSE (AUTOMATED)2022-12-17 04:21:25 Test Item Value Reference Range Interpretation Comments POCT GLU (test code = 1813132041) 122 mg/dL 70-110 H Lab Interpretation (test code = Abnormal 41725-8) [facility] GLUCOSE (AUTOMATED)2022-12-16 23:26:05 Test Item Value Reference Range Interpretation Comments POCT GLU (test code = 7206543178) 113 mg/dL 70-110 H Lab Interpretation (test code = Abnormal 43267-9) [facility] GLUCOSE (AUTOMATED)2022-12-16 23:26:05 Test Item Value Reference Range Interpretation Comments POCT GLU (test code = 1014408583) 113 mg/dL 70-110 H Lab Interpretation (test code = Abnormal 94833-8) [facility] GLUCOSE (AUTOMATED)2022-12-16 16:43:54 Test Item Value Reference Range Interpretation Comments POCT GLU (test code = 5611241000) 77 mg/dL 70-110 Lab Interpretation (test code = Normal 40262-2) [facility] GLUCOSE (AUTOMATED)2022-12-16 16:43:54 Test Item Value Reference Range Interpretation Comments POCT GLU (test code = 2040757635) 77 mg/dL 70-110 Lab Interpretation (test code = Normal 62265-7) [facility] [id number] 11:41:12 Test Item Value Reference Range Interpretation Comments TROPONIN I (test code = 0.106 ng/mL <=0.034 H 1491519825) BRAD (test code = BRAD) Reference (Normal) [...] biotin. Lab Interpretation Abnormal (test code = 96851-5) [facility] [id number] 11:41:12 Test Item Value Reference Range Interpretation Comments TROPONIN I (test code = 0.106 ng/mL <=0.034 H 4471886957) BRAD (test code = BRAD) Reference (Normal) [...] biotin. Lab Interpretation Abnormal (test code = 55698-0) [facility] METABOLIC PANEL (NA, K, CL, CO2, GLUCOSE, BUN, CREATININE, CA)2022-12-16 11:40:31 Test Item Value Reference Range Interpretation Comments NA (test code = 139 mmol/L 135-145 9344565814) K (test code = 3.6 mmol/L 3.5-5.0 5145689541) CL (test code = 104 mmol/L 98-108 7297081542) CO2 TOTAL (test code = 25 mmol/L 23-31 5325189144) AGAP (test code = 10 2-16 5059589085) BUN (test code = 30 mg/dL 7-23 H 4347140329) GLUCOSE (test code = 83 mg/dL 70-110 8168174226) CREATININE (test code = 3.06 mg/dL 0.50-1.04 H 9836246436) CALCIUM (test code = 9.0 mg/dL 8.6-10.6 4702330662) eGFR (test code = 15.3 mL/min/1.73m2 1749431294) BRAD (test code = BRAD) Association of [...] tests). Lab Interpretation Abnormal (test code = 54078-1) [facility] METABOLIC PANEL (NA, K, CL, CO2, GLUCOSE, BUN, CREATININE, CA)2022-12-16 11:40:31 Test Item Value Reference Range Interpretation Comments NA (test code = 139 mmol/L 135-145 7843899564) K (test code = 3.6 mmol/L 3.5-5.0 2970729003) CL (test code = 104 mmol/L 98-108 8554027529) CO2 TOTAL (test code = 25 mmol/L 23-31 8870389806) AGAP (test code = 10 2-16 9768153486) BUN (test code = 30 mg/dL 7-23 H 4006709787) GLUCOSE (test code = 83 mg/dL 70-110 8007361107) CREATININE (test code = 3.06 mg/dL 0.50-1.04 H 4201484101) CALCIUM (test code = 9.0 mg/dL 8.6-10.6 2252978324) eGFR (test code = 15.3 mL/min/1.73m2 1395395881) BRAD (test code = BRAD) Association of [...] tests). Lab Interpretation Abnormal (test code = 89004-3) [facility] [id number] 11:40:16 Test Item Value Reference Range Interpretation Comments VANCO RANDOM (test code = 18.0 ug/mL 2143244773) [facility] [id number] 11:40:16 Test Item Value Reference Range Interpretation Comments VANCO RANDOM (test code = 18.0 ug/mL 1001673298) [facility] (ALB,T.PRO,BILI T,BU/BC,ALT,AST,ALK PHOS)2022-12-16 11:39:51 Test Item Value Reference Range Interpretation Comments TOTAL BILI (test code = 2505436069) 0.8 mg/dL 0.1-1.1 BILI UNCON (test code = 8484794417) 0.1 mg/dL 0.1-1.1 BILI CONJ (test code = 0241517850) 0.0 mg/dL 0.0-0.3 T PROTEIN (test code = 5328871865) 5.4 g/dL 6.3-8.2 L ALBUMIN (test code = 5723707121) 2.5 g/dL 3.5-5.0 L ALK PHOS (test code = 2861125604) 155 U/L 34-122 H ALTv (test code = 1742-6) 19 U/L 5-35 AST(SGOT) (test code = 8517083350) 30 U/L 13-40 Lab Interpretation (test code = Abnormal 69500-4) [facility] (ALB,T.PRO,BILI T,BU/BC,ALT,AST,ALK PHOS)2022-12-16 11:39:51 Test Item Value Reference Range Interpretation Comments TOTAL BILI (test code = 3809537046) 0.8 mg/dL 0.1-1.1 BILI UNCON (test code = 8543570508) 0.1 mg/dL 0.1-1.1 BILI CONJ (test code = 9776245528) 0.0 mg/dL 0.0-0.3 T PROTEIN (test code = 1564600025) 5.4 g/dL 6.3-8.2 L ALBUMIN (test code = 1110636793) 2.5 g/dL 3.5-5.0 L ALK PHOS (test code = 1908418914) 155 U/L 34-122 H ALTv (test code = 1742-6) 19 U/L 5-35 AST(SGOT) (test code = 9733467147) 30 U/L 13-40 Lab Interpretation (test code = Abnormal 24573-0) [facility] GLUCOSE (AUTOMATED)2022-12-16 11:15:55 Test Item Value Reference Range Interpretation Comments POCT GLU (test code = 2006623912) 94 mg/dL 70-110 Lab Interpretation (test code = Normal 52342-1) [facility] GLUCOSE (AUTOMATED)2022-12-16 11:15:55 Test Item Value Reference Range Interpretation Comments POCT GLU (test code = 5799141613) 94 mg/dL 70-110 Lab Interpretation (test code = Normal 42520-3) [facility]22-12-16 10:38:42 Test Item Value Reference Range Interpretation Comments HBsAB (test code = Indeterminate 3835699911) HBsAb 8.40 mIU/mL Semi-Quantitative (test code = 0213379962) RBAD (test code = Unable to determine if BRAD) antibody to Hepatitis B Surface Antigen is present at levels consistent with immunity. ?Patient's immune status should be assessed with other clinical information and/or retesting in 4-6 weeks as clinically indicated. ?If any questions, please contact Clinical Chemistry Director caisson worker at .Interpretati on: ?Hepatitis B Surface Antibody ? Negative - Patient is considered to be not immune to infection with HBV. ? ? Positive - Anti-HBs detected at greater than or equal to 12 mIU/mL. ?Patient is considered to be immune to infection with HBV. ? [facility]-16 10:38:42 Test Item Value Reference Range Interpretation Comments HBsAB (test code = Indeterminate 9900638589) HBsAb 8.40 mIU/mL Semi-Quantitative (test code = 9135864733) BRAD (test code = Unable to determine if BRAD) antibody to Hepatitis B Surface Antigen is present at levels consistent with immunity. ?Patient's immune status should be assessed with other clinical information and/or retesting in 4-6 weeks as clinically indicated. ?If any questions, please contact Clinical Chemistry Director caisson worker at .Interpretati on: ?Hepatitis B Surface Antibody ? Negative - Patient is considered to be not immune to infection with HBV. ? ? Positive - Anti-HBs detected at greater than or equal to 12 mIU/mL. ?Patient is considered to be immune to infection with HBV. ? [facility] WITH [id number] 10:21:46 Test Item Value Reference Range Interpretation Comments WBC (test code = 15.75 See_Comment H [Automated 8791-2) message] The system which generated this result transmit matthew reference range : 4.30 - 11.10 10*3/?L. The reference range was not used to interpret this result as normal/abnormal . RBC (test code = 2.60 See_Comment L [Automated 800-0) message] The system which generated this result [...] (test code = 52.0 fL 39.0-49.9 H 04835-6) RDW-CV (test code = 15.7 % 12.0-15.5 H 788-0) PLT (test code = 144 See_Comment L [Automated 777-3) message] The system which generated this result transmit matthew reference range : 166 - 358 10*3/ ?L. The reference range was not u sed to interpret th is result as normal/abnormal . MPV (test code = 9.4 fL 9.5-12.9 L 79612-7) NRBC/100 WBC (test 0.0 See_Comment [Automat ed code = 8121403883) message] The system which generated this result transmit matthew reference range : 0.0 - 10.0 /100 WBCs. The reference range was not used to interpret this result as normal/abnormal . NRBC x10^3 (test code See_Comment [Auto mated = 2288128446) message] The system which generated this result transmit matthew reference range : 10*3/?L. The reference range was not used to interpret this result as normal/abnormal . GRAN MAT (NEUT) % 88.9 % (test code = 770-8) IMM GRAN % (test code 0.80 % = 1527261160) LYMPH % (test code = 5.8 % 736-9) MONO % (test code = 3.6 % 5905-5) EOS % (test code = 0.8 % 713-8) BASO % (test code = 0.1 % 706-2) GRAN MAT x10^3(ANC) 13.99 10*3/uL 1.88-7.09 H (test code = 0321799927) IMM GRAN x10^3 (test 0.13 10*3/uL 0.00-0.06 H code = 1157534129) LYMPH x10^3 (test code 0.92 10*3/uL 1.32-3.29 L = 731-0) MONO x10^3 (test code 0.56 10*3/uL 0.33-0.92 = 742-7) EOS x10^3 (test code = 0.13 10*3/uL 0.03-0.39 711-2) BASO x10^3 (test code 0.01-0.07 = 704-7) Lab Interpretation Abnormal (test code = 54109-8) [facility] WITH [id number] 10:21:46 Test Item Value Reference Range Interpretation [...] (test code = 52.0 fL 39.0-49.9 H 34162-0) RDW-CV (test code = 15.7 % 12.0-15.5 H 788-0) PLT (test code = 144 See_Comment L [Automated 777-3) message] The system which generated this result transmit matthew reference range : 166 - 358 10*3/ ?L. The reference range was not u sed to interpret th is result as normal/abnormal . MPV (test code = 9.4 fL 9.5-12.9 L 33082-7) NRBC/100 WBC (test 0.0 See_Comment [Automat ed code = 2816893606) message] The system which generated this result transmit matthew reference range : 0.0 - 10.0 /100 WBCs. The reference range was not used to interpret this result as normal/abnormal . NRBC x10^3 (test code See_Comment [Auto mated = 6372551739) message] The system which generated this result transmit matthew reference range : 10*3/?L. The reference range was not used to interpret this result as normal/abnormal . GRAN MAT (NEUT) % 88.9 % (test code = 770-8) IMM GRAN % (test code 0.80 % = 3494365280) LYMPH % (test code = 5.8 % 736-9) MONO % (test code = 3.6 % 5905-5) EOS % (test code = 0.8 % 713-8) BASO % (test code = 0.1 % 706-2) GRAN MAT x10^3(ANC) 13.99 10*3/uL 1.88-7.09 H (test code = 7060334498) IMM GRAN x10^3 (test 0.13 10*3/uL 0.00-0.06 H code = 5636746675) LYMPH x10^3 (test code 0.92 10*3/uL 1.32-3.29 L = 731-0) MONO x10^3 (test code 0.56 10*3/uL 0.33-0.92 = 742-7) EOS x10^3 (test code = 0.13 10*3/uL 0.03-0.39 711-2) BASO x10^3 (test code 0.01-0.07 = 704-7) Lab Interpretation Abnormal (test code = 22541-3) [facility] 06:57:04 Test Item Value Reference Range Interpretation Comments HBsAg Semi-Quantitative (test code = 0.06 Negative 5195-3) [facility] 06:57:04 Test Item Value Reference Range Interpretation Comments HBsAg Semi-Quantitative (test code = 0.06 Negative 5195-3) [facility] GLUCOSE (AUTOMATED)2022-12-16 05:30:23 Test Item Value Reference Range Interpretation Comments POCT GLU (test code = 3343181589) 75 mg/dL 70-110 Lab Interpretation (test code = Normal 30648-5) [facility] GLUCOSE (AUTOMATED)2022-12-16 05:30:23 Test Item Value Reference Range Interpretation Comments POCT GLU (test code = 5862030432) 75 mg/dL 70-110 Lab Interpretation (test code = Normal 91386-7) [facility] [id number] 23:05:10 Test Item Value Reference Range Interpretation Comments TROPONIN I (test code = 0.088 ng/mL <=0.034 H 5097928900) BRAD (test code = BRAD) Reference (Normal) [...] biotin. Lab Interpretation Abnormal (test code = 37421-0) [facility] [id number] 23:05:10 Test Item Value Reference Range Interpretation Comments TROPONIN I (test code = 0.088 ng/mL <=0.034 H 3078499185) BRAD (test code = BRAD) Reference (Normal) [...] biotin. Lab Interpretation Abnormal (test code = 32927-0) [facility] GLUCOSE (AUTOMATED)2022-12-15 23:02:20 Test Item Value Reference Range Interpretation Comments POCT GLU (test code = 0851228018) 166 mg/dL 70-110 H Lab Interpretation (test code = Abnormal 43576-9) [facility] GLUCOSE (AUTOMATED)2022-12-15 23:02:20 Test Item Value Reference Range Interpretation Comments POCT GLU (test code = 6947144464) 166 mg/dL 70-110 H Lab Interpretation (test code = Abnormal 30778-7) [facility] Packed RBC (in units), 1 Units 2022-12-15 22:05:53 Test Item Value Reference Range Interpretation Comments Cross Match Result Compatible (test code = 4409) ISBT Blood Type Code 6200 (test code = 881224) Unit Blood Type (test A Pos code = 4410) Unit Number (test [id number] code = 4411) Blood Expiration Date & Time (test code = 237127) Status Information Issued (test code = 4412) Product Red Blood Cells Identification (test code = 4413) Product Code (test [id number] Performed at [facility] code = 4414) Laboratory Services - [facility] Blood [address] [place] [id number] Free: [phone] A No. [id number] [facility] Packed RBC (in units), 1 Units 2022-12-15 22:05:53 Test Item Value Reference Range Interpretation Comments Cross Match Result Compatible (test code = 4409) ISBT Blood Type Code 6200 (test code = 739003) Unit Blood Type (test A Pos code = 4410) Unit Number (test [id number] code = 4411) Blood Expiration Date & Time (test code = 393311) Status Information Issued (test code = 4412) Product Red Blood Cells Identification (test code = 4413) Product Code (test [id number] Performed at [facility] code = 4414) Laboratory Services - [facility] Blood [address] [place] [address]Vccl Free: [phone] A No. [id number] [facility] POSITIVE BLOOD PATHOGENS DNA [id number] 21:12:06 Test Item Value Reference Range Interpretation Comments Staphylococcus aureus Positive Negative, See A (test code = 53789-1) Comment/Narrativ e mecA (test code = Negative Negative, See 68215-3) Comment/Narrativ e BRAD (test code = BRAD) MSSA detected by DNA probe. ?See blood culture result for additional susceptibilityInformati on. Preferred therapies for MSSA ?bacteremia are nafcillin or cefazolin.Infectious Diseases consultation recommended. Please contact the Antimicrobial Stewardship Program with questions.ASP Pager: ?[phone] Testing included eleven identification and three resistance marker targets. See blood culture result for additional information. Testing included eleven identification and three resistancemarker targets. Lab Interpretation Abnormal (test code = 35863-7) [facility] POSITIVE BLOOD PATHOGENS DNA [id number] 21:12:06 Test Item Value Reference Range Interpretation Comments Staphylococcus aureus Positive Negative, See A (test code = 22728-3) Comment/Narrativ e mecA (test code = Negative Negative, See 82941-8) Comment/Narrativ e BRAD (test code = BRAD) MSSA detected by DNA probe. ?See blood culture result for additional susceptibilityInformati on. Preferred therapies for MSSA ?bacteremia are nafcillin or cefazolin.Infectious Diseases consultation recommended. Please contact the Antimicrobial Stewardship Program with questions.ASP Pager: ?[phone] Testing included eleven identification and three resistance marker targets. See blood culture result for additional information. Testing included eleven identification and three resistancemarker targets. Lab Interpretation Abnormal (test code = 85543-4) [facility] GLUCOSE (AUTOMATED)2022-12-15 17:59:51 Test Item Value Reference Range Interpretation Comments POCT GLU (test code = 0226315269) 88 mg/dL 70-110 Lab Interpretation (test code = Normal 12617-8) [facility] GLUCOSE (AUTOMATED)2022-12-15 17:59:51 Test Item Value Reference Range Interpretation Comments POCT GLU (test code = 6440777995) 88 mg/dL 70-110 Lab Interpretation (test code = Normal 66343-3) [facility] [id number] 12:38:38 Test Item Value Reference Range Interpretation Comments NT-proBNP (test code = 92486 pg/mL <=125 H 0307704680) BRAD (test code = BRAD) Biotin has been reported to cause a negative bias, interpret results relative to patient's use of biotin. Lab Interpretation (test Abnormal code = 22951-1) [facility] [id number] 12:38:38 Test Item Value Reference Range Interpretation Comments NT-proBNP (test code = 13255 pg/mL <=125 H 1035127937) BRAD (test code = BRAD) Biotin has been reported to cause a negative bias, interpret results relative to patient's use of biotin. Lab Interpretation (test Abnormal code = 52860-7) [facility] WITH [id number] 12:16:32 Test Item Value Reference Range Interpretation [...] (test code = 51.8 fL 39.0-49.9 H 37212-9) RDW-CV (test code = 15.6 % 12.0-15.5 H 788-0) PLT (test code = 174 See_Comment [Automated 777-3) message] The system which generated this result transmitted reference range : 166 - 358 10*3/?L. The reference range was not used to interpret this result as normal/abnormal . MPV (test code = 9.0 fL 9.5-12.9 L 83391-0) NRBC/100 WBC (test 0.0 See_Comment [Automat ed code = 7019139176) message] The system which generated this result transmitted reference range : 0.0 - 10.0 /100 WBCs. The reference range was not used to interpret this result as normal/abnormal . NRBC x10^3 (test code See_Comment [Auto mated = 7469664923) message] The system which generated this result transmitted reference range : 10*3/?L. The reference range was not used to interpret this result as normal/abnormal . GRAN MAT (NEUT) % 94.9 % (test code = 770-8) IMM GRAN % (test code 0.90 % = 4908546882) LYMPH % (test code = 1.3 % 736-9) MONO % (test code = 2.4 % 5905-5) EOS % (test code = 0.2 % 713-8) BASO % (test code = 0.3 % 706-2) GRAN MAT x10^3(ANC) 28.43 10*3/uL 1.88-7.09 H (test code = 9338260648) IMM GRAN x10^3 (test 0.27 10*3/uL 0.00-0.06 H code = 9921115273) LYMPH x10^3 (test 0.38 10*3/uL 1.32-3.29 L code = 731-0) MONO x10^3 (test code 0.72 10*3/uL 0.33-0.92 = 742-7) EOS x10^3 (test code 0.07 10*3/uL 0.03-0.39 = 711-2) BASO x10^3 (test code 0.08 10*3/uL 0.01-0.07 H = 704-7) POLYCHROMASIA (test 2+ See_Comment [Automa matthew code = 41413-7) message] The system which generated this result transmitted reference range : 2+. The referen ce range was not used to interpr et this result as normal/abnormal . BANDS (test code = MARKED INCREASED A 9412843706) DOHLE BODIES (test Present A code = 7792-5) TOXIC CHANGES (test Present A code = 803-7) GIANT PLATELETS (test Present See_Comment A [Auto mated code = 5908-9) message] The system which generated this result transmitted reference range : (none). The reference range was not used to interpret this result as normal/abnormal . Lab Interpretation Abnormal (test code = 16258-5) [facility] WITH [id number] 12:16:32 Test Item Value Reference Range Interpretation Comments WBC (test code = 29.95 See_Comment H [Automated 7342-2) message] The system which generated this result transmitted reference range : 4.30 - 11.10 10*3/?L. The reference range was not used to interpret this result as normal/abnormal . RBC (test code = 2.56 See_Comment L [Automated 847-8) message] The system which generated this result [...] (test code = 51.8 fL 39.0-49.9 H 04488-4) RDW-CV (test code = 15.6 % 12.0-15.5 H 788-0) PLT (test code = 174 See_Comment [Automated 777-3) message] The system which generated this result transmitted reference range : 166 - 358 10*3/?L. The reference range was not used to interpret this result as normal/abnormal . MPV (test code = 9.0 fL 9.5-12.9 L 98519-8) NRBC/100 WBC (test 0.0 See_Comment [Automat ed code = 6672299353) message] The system which generated this result transmitted reference range : 0.0 - 10.0 /100 WBCs. The reference range was not used to interpret this result as normal/abnormal . NRBC x10^3 (test code See_Comment [Auto mated = 8766106288) message] The system which generated this result transmitted reference range : 10*3/?L. The reference range was not used to interpret this result as normal/abnormal . GRAN MAT (NEUT) % 94.9 % (test code = 770-8) IMM GRAN % (test code 0.90 % = 6128655893) LYMPH % (test code = 1.3 % 736-9) MONO % (test code = 2.4 % 5905-5) EOS % (test code = 0.2 % 713-8) BASO % (test code = 0.3 % 706-2) GRAN MAT x10^3(ANC) 28.43 10*3/uL 1.88-7.09 H (test code = 1997624631) IMM GRAN x10^3 (test 0.27 10*3/uL 0.00-0.06 H code = 5749323900) LYMPH x10^3 (test 0.38 10*3/uL 1.32-3.29 L code = 731-0) MONO x10^3 (test code 0.72 10*3/uL 0.33-0.92 = 742-7) EOS x10^3 (test code 0.07 10*3/uL 0.03-0.39 = 711-2) BASO x10^3 (test code 0.08 10*3/uL 0.01-0.07 H = 704-7) POLYCHROMASIA (test 2+ See_Comment [Automa matthew code = 13092-5) message] The system which generated this result transmitted reference range : 2+. The referen ce range was not used to interpr et this result as normal/abnormal . BANDS (test code = MARKED INCREASED A 2640540525) DOHLE BODIES (test Present A code = 7792-5) TOXIC CHANGES (test Present A code = 803-7) GIANT PLATELETS (test Present See_Comment A [Auto mated code = 5908-9) message] The system which generated this result transmitted reference range : (none). The reference range was not used to interpret this result as normal/abnormal . Lab Interpretation Abnormal (test code = 86255-5) [facility] [id number] 12:05:11 Test Item Value Reference Range Interpretation Comments TROPONIN I (test code = 0.096 ng/mL <=0.034 H 8600984226) BRAD (test code = BRAD) Reference (Normal) [...] biotin. Lab Interpretation Abnormal (test code = 97990-3) [facility] [id number] 12:05:11 Test Item Value Reference Range Interpretation Comments TROPONIN I (test code = 0.096 ng/mL <=0.034 H 5636880572) BRAD (test code = BRAD) Reference (Normal) [...] biotin. Lab Interpretation Abnormal (test code = 94612-4) [facility] METABOLIC PANEL (NA, K, CL, CO2, GLUCOSE, BUN, CREATININE, CA)2022-12-15 11:53:07 Test Item Value Reference Range Interpretation Comments NA (test code = 139 mmol/L 135-145 3975432032) K (test code = 3.6 mmol/L 3.5-5.0 7997367551) CL (test code = 104 mmol/L 98-108 0292100098) CO2 TOTAL (test code = 19 mmol/L 23-31 L 4560523986) AGAP (test code = 16 2-16 8550098491) BUN (test code = 41 mg/dL 7-23 H 5060382603) GLUCOSE (test code = 85 mg/dL 70-110 8585019324) CREATININE (test code = 3.85 mg/dL 0.50-1.04 H 0689855721) CALCIUM (test code = 8.9 mg/dL 8.6-10.6 4537230623) eGFR (test code = 11.7 mL/min/1.73m2 6880513713) BRAD (test code = BRAD) Association of [...] tests). Lab Interpretation Abnormal (test code = 58951-6) [facility] Test Item Value Reference Range Interpretation Comments MAGNESIUM (test code = 2717991395) 1.9 mg/dL 1.7-2.4 Lab Interpretation (test code = Normal 88148-4) [facility] (NA, K, CL, CO2, GLUCOSE, BUN, CREATININE, CA)2022-12-15 11:53:07 Test Item Value Reference Range Interpretation Comments NA (test code = 139 mmol/L 135-145 4142165040) K (test code = 3.6 mmol/L 3.5-5.0 2535947588) CL (test code = 104 mmol/L 98-108 6629082175) CO2 TOTAL (test code = 19 mmol/L 23-31 L 7534103015) AGAP (test code = 16 2-16 2452888599) BUN (test code = 41 mg/dL 7-23 H 0478679802) GLUCOSE (test code = 85 mg/dL 70-110 3590539923) CREATININE (test code = 3.85 mg/dL 0.50-1.04 H 8105784832) CALCIUM (test code = 8.9 mg/dL 8.6-10.6 3548507975) eGFR (test code = 11.7 mL/min/1.73m2 9280380860) BRAD (test code = BRAD) Association of [...] tests). Lab Interpretation Abnormal (test code = 98563-9) [facility] 11:53:07 Test Item Value Reference Range Interpretation Comments MAGNESIUM (test code = 6751047334) 1.9 mg/dL 1.7-2.4 Lab Interpretation (test code = Normal 74836-6) [facility] 11:52:47 Test Item Value Reference Range Interpretation Comments PHOSPHORUS (test code = 7985840400) 4.8 mg/dL 2.5-5.0 Lab Interpretation (test code = Normal 58157-2) [facility] 11:52:47 Test Item Value Reference Range Interpretation Comments PHOSPHORUS (test code = 0906854198) 4.8 mg/dL 2.5-5.0 Lab Interpretation (test code = Normal 31961-5) [facility] 11:52:06 Test Item Value Reference Range Interpretation Comments LIPASE (test code = 1496532474) 39 U/L 0-220 Lab Interpretation (test code = Normal 31333-0) [facility] 11:52:06 Test Item Value Reference Range Interpretation Comments LIPASE (test code = 0133588597) 39 U/L 0-220 Lab Interpretation (test code = Normal 39253-9) [facility] GLUCOSE (AUTOMATED)2022-12-15 10:44:05 Test Item Value Reference Range Interpretation Comments POCT GLU (test code = 6327013928) 95 mg/dL 70-110 Lab Interpretation (test code = Normal 76612-9) [facility] GLUCOSE (AUTOMATED)2022-12-15 10:44:05 Test Item Value Reference Range Interpretation Comments POCT GLU (test code = 0932087710) 95 mg/dL 70-110 Lab Interpretation (test code = Normal 77895-0) [facility] [id number] 07:17:20 Test Item Value Reference Range Interpretation Comments LACTIC ACID (test code = 1.81 mmol/L 0.50-2.20 8187673134) Lab Interpretation (test code = Normal 24267-4) [facility] [id number] 07:17:20 Test Item Value Reference Range Interpretation Comments LACTIC ACID (test code = 1.81 mmol/L 0.50-2.20 7773236721) Lab Interpretation (test code = Normal 03773-3) [facility] GLUCOSE (AUTOMATED)2022-12-15 05:00:50 Test Item Value Reference Range Interpretation Comments POCT GLU (test code = 0582915273) 122 mg/dL 70-110 H Lab Interpretation (test code = Abnormal 93442-7) [facility] GLUCOSE (AUTOMATED)2022-12-15 05:00:50 Test Item Value Reference Range Interpretation Comments POCT GLU (test code = 4802536538) 122 mg/dL 70-110 H Lab Interpretation (test code = Abnormal 46854-8) [facility]26 Test Item Value Reference Range Interpretation Comments MAGNESIUM (test code = 0229014763) 2.0 mg/dL 1.7-2.4 Lab Interpretation (test code = Normal 56125-4) [facility] 04[facility]49:26 Test Item Value Reference Range Interpretation Comments MAGNESIUM (test code = 8492561103) 2.0 mg/dL 1.7-2.4 Lab Interpretation (test code = Normal 25147-5) [facility] [id number] 00:09:11 Test Item Value Reference Range Interpretation Comments NT-proBNP (test code = 80890 pg/mL <=125 H 7639425259) BRAD (test code = BRAD) Biotin has been reported to cause a negative bias, interpret results relative to patient's use of biotin. Lab Interpretation (test Abnormal code = 49042-0) [facility] [id number] 00:09:11 Test Item Value Reference Range Interpretation Comments NT-proBNP (test code = 27886 pg/mL <=125 H 9320451333) BRAD (test code = BRAD) Biotin has been reported to cause a negative bias, interpret results relative to patient's use of biotin. Lab Interpretation (test Abnormal code = 18345-7) [facility] [id number] 23:53:13 Test Item Value Reference Range Interpretation Comments TROPONIN I (test code = 0.049 ng/mL <=0.034 H 9958799071) BRAD (test code = BRAD) Reference (Normal) [...] biotin. Lab Interpretation Abnormal (test code = 17361-3) [facility] [id number] 23:53:13 Test Item Value Reference Range Interpretation Comments TROPONIN I (test code = 0.049 ng/mL <=0.034 H 0712727315) BRAD (test code = BRAD) Reference (Normal) [...] biotin. Lab Interpretation Abnormal (test code = 83425-1) [facility]. METABOLIC PANEL (56638)2022-12-14 23:39:49 Test Item Value Reference Range Interpretation Comments NA (test code = 138 mmol/L 135-145 7413470175) K (test code = 3.3 mmol/L 3.5-5.0 L 3491912994) CL (test code = 100 mmol/L 98-108 5059143726) CO2 TOTAL (test code = 24 mmol/L 23-31 7713661418) AGAP (test code = 14 2-16 6907775585) BUN (test code = 34 mg/dL 7-23 H 0759039537) GLUCOSE (test code = 225 mg/dL 70-110 H 2972507227) CREATININE (test code = 3.54 mg/dL 0.50-1.04 H 2658185005) TOTAL BILI (test code = 0.9 mg/dL 0.1-1.8 9791739011) CALCIUM (test code = 9.3 mg/dL 8.6-10.6 1297633895) T PROTEIN (test code = 6.4 g/dL 6.3-8.2 5661296300) ALBUMIN (test code = 3.2 g/dL 3.5-5.0 L 2068475570) ALK PHOS (test code = 162 U/L 34-122 H 5343295269) ALTv (test code = 19 U/L 5-35 1742-6) AST(SGOT) (test code = 24 U/L 13-40 7837201883) eGFR (test code = 12.9 mL/min/1.73m2 1521220525) BRAD (test code = BRAD) Association of [...] tests). Lab Interpretation Abnormal (test code = 99137-4) [facility]. METABOLIC PANEL (68979)2022-12-14 23:39:49 Test Item Value Reference Range Interpretation Comments NA (test code = 138 mmol/L 135-145 5672160454) K (test code = 3.3 mmol/L 3.5-5.0 L 6784465870) CL (test code = 100 mmol/L 98-108 5802117649) CO2 TOTAL (test code = 24 mmol/L 23-31 9350334327) AGAP (test code = 14 2-16 6563497365) BUN (test code = 34 mg/dL 7-23 H 6175629188) GLUCOSE (test code = 225 mg/dL 70-110 H 6651110154) CREATININE (test code = 3.54 mg/dL 0.50-1.04 H 6744394884) TOTAL BILI (test code = 0.9 mg/dL 0.1-1.1 6397946173) CALCIUM (test code = 9.3 mg/dL 8.6-10.6 8426376961) T PROTEIN (test code = 6.4 g/dL 6.3-8.2 0642044819) ALBUMIN (test code = 3.2 g/dL 3.5-5.0 L 1091382867) ALK PHOS (test code = 162 U/L 34-122 H 7564423754) ALTv (test code = 19 U/L 5-35 2-6) AST(SGOT) (test code = 24 U/L 13-40 6762178304) eGFR (test code = 12.9 mL/min/1.73m2 5734153963) BRAD (test code = BRAD) Association of [...] tests). Lab Interpretation Abnormal (test code = 98748-8) [facility] 23:39:08 Test Item Value Reference Range Interpretation Comments LIPASE (test code = 0342192985) 414 U/L 0-220 H Lab Interpretation (test code = Abnormal 03688-0) [facility] 23:39:08 Test Item Value Reference Range Interpretation Comments LIPASE (test code = 3667385240) 414 U/L 0-220 H Lab Interpretation (test code = Abnormal 32521-0) [facility] [id number] 23:28:05 Test Item Value Reference Range Interpretation [...] (test code = 50.1 fL 39.0-49.9 H 69829-8) RDW-CV (test code = 15.0 % 12.0-15.5 788-0) PLT (test code = 207 See_Comment [Automated 777-3) message] The system which generated this result transmit matthew reference range : 166 - 358 10*3/ ?L. The reference range was not u sed to interpret th is result as normal/abnormal . MPV (test code = 9.0 fL 9.5-12.9 L 12898-4) NRBC/100 WBC (test 0.0 See_Comment [Automat ed code = 2531013116) message] The system which generated this result transmit matthew reference range : 0.0 - 10.0 /100 WBCs. The reference range was not used to interpret this result as normal/abnormal . NRBC x10^3 (test code See_Comment [Auto mated = 2670524410) message] The system which generated this result transmit matthew reference range : 10*3/?L. The reference range was not used to interpret this result as normal/abnormal . GRAN MAT (NEUT) % 95.6 % (test code = 770-8) IMM GRAN % (test code 0.60 % = 4923427425) LYMPH % (test code = 1.9 % 736-9) MONO % (test code = 1.0 % 5905-5) EOS % (test code = 0.7 % 713-8) BASO % (test code = 0.2 % 706-2) GRAN MAT x10^3(ANC) 14.21 10*3/uL 1.88-7.09 H (test code = 1855894468) IMM GRAN x10^3 (test 0.09 10*3/uL 0.00-0.06 H code = 0367189574) LYMPH x10^3 (test code 0.29 10*3/uL 1.32-3.29 L = 731-0) MONO x10^3 (test code 0.15 10*3/uL 0.33-0.92 L = 742-7) EOS x10^3 (test code = 0.11 10*3/uL 0.03-0.39 711-2) BASO x10^3 (test code 0.03 10*3/uL 0.01-0.07 = 704-7) Lab Interpretation Abnormal (test code = 36693-7) [facility] WITH [id number] 23:28:05 Test Item Value Reference Range Interpretation [...] (test code = 50.1 fL 39.0-49.9 H 35817-6) RDW-CV (test code = 15.0 % 12.0-15.5 788-0) PLT (test code = 207 See_Comment [Automated 777-3) message] The system which generated this result transmit matthew reference range : 166 - 358 10*3/ ?L. The reference range was not u sed to interpret th is result as normal/abnormal . MPV (test code = 9.0 fL 9.5-12.9 L 00966-3) NRBC/100 WBC (test 0.0 See_Comment [Automat ed code = 1643511627) message] The system which generated this result transmit matthew reference range : 0.0 - 10.0 /100 WBCs. The reference range was not used to interpret this result as normal/abnormal . NRBC x10^3 (test code See_Comment [Auto mated = 1697009743) message] The system which generated this result transmit matthew reference range : 10*3/?L. The reference range was not used to interpret this result as normal/abnormal . GRAN MAT (NEUT) % 95.6 % (test code = 770-8) IMM GRAN % (test code 0.60 % = 8991753741) LYMPH % (test code = 1.9 % 736-9) MONO % (test code = 1.0 % 5905-5) EOS % (test code = 0.7 % 713-8) BASO % (test code = 0.2 % 706-2) GRAN MAT x10^3(ANC) 14.21 10*3/uL 1.88-7.09 H (test code = 2172782236) IMM GRAN x10^3 (test 0.09 10*3/uL 0.00-0.06 H code = 7213925638) LYMPH x10^3 (test code 0.29 10*3/uL 1.32-3.29 L = 731-0) MONO x10^3 (test code 0.15 10*3/uL 0.33-0.92 L = 742-7) EOS x10^3 (test code = 0.11 10*3/uL 0.03-0.39 711-2) BASO x10^3 (test code 0.03 10*3/uL 0.01-0.07 = 704-7) Lab Interpretation Abnormal (test code = 53757-8) [facility] [id number] 22:59:07 Test Item Value Reference Range Interpretation Comments LACTIC ACID (test code = 1.80 mmol/L 0.50-2.20 2361601481) Lab Interpretation (test code = Normal 12666-1) [facility] [id number] 22:59:07 Test Item Value Reference Range Interpretation Comments LACTIC ACID (test code = 1.80 mmol/L 0.50-2.20 3815704804) Lab Interpretation (test code = Normal 66433-7) [facility] GLUCOSE (AUTOMATED)2022-12-14 22:56:50 Test Item Value Reference Range Interpretation Comments POCT GLU (test code = 8891308520) 235 mg/dL 70-110 H Lab Interpretation (test code = Abnormal 88907-2) [facility] GLUCOSE (AUTOMATED)2022-12-14 22:56:50 Test Item Value Reference Range Interpretation Comments POCT GLU (test code = 1815630079) 235 mg/dL 70-110 H Lab Interpretation (test code = Abnormal 24885-6) [facility] GLUCOSE (AUTOMATED)2022-11-07 21:58:54 Test Item Value Reference Range Interpretation Comments POCT GLU (test code = 7716383453) 184 mg/dL 70-110 H Lab Interpretation (test code = Abnormal 36646-4) [facility] GLUCOSE (AUTOMATED)2022-11-07 16:45:57 Test Item Value Reference Range Interpretation Comments POCT GLU (test code = 0451639378) 196 mg/dL 70-110 H Lab Interpretation (test code = Abnormal 33348-9) [facility] GLUCOSE (AUTOMATED)2022-11-07 13:12:51 Test Item Value Reference Range Interpretation Comments POCT GLU (test code = 6834161224) 164 mg/dL 70-110 H Lab Interpretation (test code = Abnormal 15308-3) [facility] ([facility]Ab)2022-11-06 23:00:28 Test Item Value Reference Range Interpretation Comments HBsAB (test code = Indeterminate 1675876348) HBsAb 6.20 mIU/mL Semi-Quantitative (test code = 0870704311) BRAD (test code = Unable to determine if BRAD) antibody to Hepatitis B Surface Antigen is present at levels consistent with immunity. ?Patient's immune status should be assessed with other clinical information and/or retesting in 4-6 weeks as clinically indicated. ?If any questions, please contact Clinical Chemistry Director caisson worker at .Interpretati on: ?Hepatitis B Surface Antibody ? Negative - Patient is considered to be not immune to infection with HBV. ? ? Positive - Anti-HBs detected at greater than or equal to 12 mIU/mL. ?Patient is considered to be immune to infection with HBV. ? [facility] GLUCOSE (AUTOMATED)2022-11-06 21:40:13 Test Item Value Reference Range Interpretation Comments POCT GLU (test code = 1420418385) 180 mg/dL 70-110 H Lab Interpretation (test code = Abnormal 63878-9) [facility] 20:40:07 Test Item Value Reference Range Interpretation Comments HBsAg Semi-Quantitative (test code = 0.21 Negative 5195-3) [facility] GLUCOSE (AUTOMATED)2022-11-06 16:28:02 Test Item Value Reference Range Interpretation Comments POCT GLU (test code = 3169886750) 177 mg/dL 70-110 H Lab Interpretation (test code = Abnormal 22803-9) [facility] [id number] 15:24:24 Test Item Value Reference Range Interpretation Comments TROPONIN I (test code = 0.047 ng/mL <=0.034 H 6638195753) BRAD (test code = BRAD) Reference (Normal) [...] biotin. Lab Interpretation Abnormal (test code = 71898-4) [facility] GLUCOSE (AUTOMATED)2022-11-06 12:43:24 Test Item Value Reference Range Interpretation Comments POCT GLU (test code = 2512742037) 158 mg/dL 70-110 H Lab Interpretation (test code = Abnormal 44614-5) [facility] GLUCOSE (AUTOMATED)2022-11-06 01:41:32 Test Item Value Reference Range Interpretation Comments POCT GLU (test code = 3345406989) 218 mg/dL 70-110 H Lab Interpretation (test code = Abnormal 19825-4) [facility] GLUCOSE (AUTOMATED)2022-11-05 22:03:11 Test Item Value Reference Range Interpretation Comments POCT GLU (test code = 8073724062) 156 mg/dL 70-110 H Lab Interpretation (test code = Abnormal 88441-3) [facility] GLUCOSE (AUTOMATED)2022-11-05 16:40:51 Test Item Value Reference Range Interpretation Comments POCT GLU (test code = 9323372077) 197 mg/dL 70-110 H Lab Interpretation (test code = Abnormal 04133-5) [facility]2022-11-05 12:59:19 Test Item Value Reference Range Interpretation Comments POCT GLU (test code = 3401287790) 126 mg/dL 70-110 H Lab Interpretation (test code = Abnormal 22117-9) [facility] [id number] 02:54:06 Test Item Value Reference Range Interpretation Comments TSH (test code = 2.59 See_Comment Biotin has been 4755410673) reported to cau se a negative bias, interpret resul ts relative to pat anasae's use of biotin. [Automated mess age] The system Fliqq generated this result transmitted ref erence range: 0.45 - 4 .70 mIU/L. The refe rence range was not u sed to interpret this result as normal/abnor mal. Lab Interpretation (test Normal code = 48252-6) [facility] [id number] 02:00:37 Test Item Value Reference Range Interpretation Comments FREE T4 (test code = 1.57 See_Comment [Autom ated message] 7356169229) The system Fliqq generated this result transmitted ref erence range: 0.78 - 2 .20 ng/dL:. The ref erence range was not u sed to interpret this result as normal/abnor mal. Lab Interpretation (test Normal code = 35116-4) [facility] [id number] 02:00:17 Test Item Value Reference Range Interpretation Comments FREE T3 (test code = 2399514073) 3.61 pg/mL 2.77-5.27 Lab Interpretation (test code = Normal 23150-8) [facility]EMOGLOBIN (A1C)2022-11-05 01:49:39 Test Item Value Reference Range Interpretation Comments HGB A1C (test code = 4.7 % 4.0-5.7 4548-4) BRAD (test code = BRAD) Reference RangesNormal: <5.7%Prediabetes: 5.7 - 6.4%Diabetes: > 6.5% Lab Interpretation (test Normal code = 66489-2) [facility]CREATINE [id number] 21:11:09 Test Item Value Reference Range Interpretation Comments CK (test code = 8786575970) 24 U/L 33-194 L Lab Interpretation (test code = Abnormal 06358-5) [facility] [id number] 21:01:09 Test Item Value Reference Range Interpretation Comments NT-proBNP (test code = 20506 pg/mL <=125 H 9994399093) BRAD (test code = BRAD) Biotin has been reported to cause a negative bias, interpret results relative to patient's use of biotin. Lab Interpretation (test Abnormal code = 24388-7) [facility] [id number] 20:42:28 Test Item Value Reference Range Interpretation Comments TROPONIN I (test code = 0.054 ng/mL <=0.034 H 6097420344) BRAD (test code = BRAD) Reference (Normal) [...] biotin. Lab Interpretation Abnormal (test code = 62559-5) [facility]OLIC PAN[facility] (10672)2022-11-04 20:32:09 Test Item Value Reference Range Interpretation Comments NA (test code = 138 mmol/L 135-145 2817705913) K (test code = 3.0 mmol/L 3.5-5.0 L 7301382455) CL (test code = 106 mmol/L 98-108 3504703212) CO2 TOTAL (test code = 26 mmol/L 23-31 6090576213) AGAP (test code = 6 2-16 0428342824) BUN (test code = 18 mg/dL 7-23 6973758715) GLUCOSE (test code = 119 mg/dL 70-110 H 1142666527) CREATININE (test code = 2.18 mg/dL 0.50-1.04 H 4282633076) TOTAL BILI (test code = 0.6 mg/dL 0.1-1.2 9364634514) CALCIUM (test code = 9.2 mg/dL 8.6-10.6 5599052372) T PROTEIN (test code = 5.9 g/dL 6.3-8.2 L 0624947055) ALBUMIN (test code = 3.1 g/dL 3.5-5.0 L 2229892192) ALK PHOS (test code = 124 U/L 34-122 H 9592579677) ALTv (test code = 16 U/L 5-35 1742-6) AST(SGOT) (test code = 18 U/L 13-40 5053641835) eGFR (test code = 22.6 mL/min/1.73m2 8206100223) BRAD (test code = BRAD) Association of [...] tests). Lab Interpretation Abnormal (test code = 09935-6) [facility]32:09 Test Item Value Reference Range Interpretation Comments MAGNESIUM (test code = 0293958613) 2.1 mg/dL 1.7-2.4 Lab Interpretation (test code = Normal 43206-7) [facility]20[facility] 20:31:49 Test Item Value Reference Range Interpretation Comments PHOSPHORUS (test code = 6628730003) 3.7 mg/dL 2.5-5.0 Lab Interpretation (test code = Normal 30252-9) [facility] [id number] 20:19:25 Test Item Value Reference Range Interpretation Comments WBC (test code = 6.70 See_Comment [Automated 2990-2) message] The sy stem which generated this result transmitted reference range : 4.30 - 11.10 10*3/?L. The reference range was not used to interpret this result as normal/abnormal . RBC (test code = 3.05 See_Comment L [Automated 369-8) message] The sy stem which generated this [...] (test code = 57.7 fL 39.0-49.9 H 35885-1) RDW-CV (test code = 16.7 % 12.0-15.5 H 788-0) PLT (test code = 235 See_Comment [Automated 777-3) message] The sy stem which generated this result transmitted reference range : 166 - 358 10*3/ ?L. The reference r chikis was not used to interpret this result as normal/abnormal . MPV (test code = 9.2 fL 9.5-12.9 L 81658-0) NRBC/100 WBC (test 0.0 See_Comment [Automat ed code = 7476623768) message] The system which generated this result transmitted reference range : 0.0 - 10.0 /100 WBCs. The refer ence range was not u sed to interpret th is result as normal/abnormal . NRBC x10^3 (test code See_Comment [Auto mated = 7118223041) message] The s ystem which generated this result transmitted reference range : 10*3/?L. The reference range was not used to interpret this result as normal/abnormal . GRAN MAT (NEUT) % 74.2 % (test code = 770-8) IMM GRAN % (test code 0.30 % = 4232711186) LYMPH % (test code = 12.4 % 736-9) MONO % (test code = 9.1 % 5905-5) EOS % (test code = 3.6 % 713-8) BASO % (test code = 0.4 % 706-2) GRAN MAT x10^3(ANC) 4.97 10*3/uL 1.88-7.09 (test code = 5561592368) IMM GRAN x10^3 (test 0.00-0.06 code = 4853883255) LYMPH x10^3 (test code 0.83 10*3/uL 1.32-3.29 L = 731-0) MONO x10^3 (test code 0.61 10*3/uL 0.33-0.92 = 742-7) EOS x10^3 (test code = 0.24 10*3/uL 0.03-0.39 711-2) BASO x10^3 (test code 0.03 10*3/uL 0.01-0.07 = 704-7) Lab Interpretation Abnormal (test code = 74589-8) [id number]:54:00 Test Item Value Reference Range Interpretation Comments GLUCOSE BEDSIDE (test 122 MG/DL 70-110 H Perfor med by certified code = GLUBED) 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 [facility] GLUCOSE [id number] 12:13:00 Test Item Value Reference Range Interpretation Comments GLUCOSE BEDSIDE (test 156 MG/DL 70-110 H Perfor med by certified code = GLUBED) 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 [facility] GLUCOSE [id number] 10:42:00 Test Item Value Reference Range Interpretation Comments GLUCOSE BEDSIDE (test 181 MG/DL 70-110 H Perfor med by certified code = GLUBED) 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 [facility] GLUCOSE [id number] 20:05:00 Test Item Value Reference Range Interpretation Comments GLUCOSE BEDSIDE (test 90 MG/DL 70-110 N Perfor med by certified code = GLUBED) 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 [facility] GLUCOSE [id number] 15:46:00 Test Item Value Reference Range Interpretation Comments GLUCOSE BEDSIDE (test 212 MG/DL 70-110 H Perfor med by certified code = GLUBED) 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 [facility] GLUCOSE [id number] 12:44:00 Test Item Value Reference Range Interpretation Comments GLUCOSE BEDSIDE (test 120 MG/DL 70-110 H Perfor med by certified code = GLUBED) 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 [facility] BASIC METABOLIC [id number] 08:34:00 Test Item Value Reference Range Interpretation [...] code = 9.5 mg/dL 8.0-10.5 N CA) [id number] 08:34:00 Test Item Value Reference Range Interpretation Comments PHOSPHOROUS (test code = PHOS) 2.3 MG/DL 2.5-4.9 L [id number] 08:34:00 Test Item Value Reference Range Interpretation Comments MAGNESIUM (test code = MAG) 2.18 mg/dL 1.80-2.40 N [id number] 08:29:00 Test Item Value Reference Range Interpretation Comments VANCOMYCIN (test code = VANCO) 20.2 mcg/mL CBC W/AUTO [id number] 08:27:00 Test Item Value Reference Range Interpretation [...] REQUIRED (test code NO = MDIFF) CALCIUM [id number] 08:20:00 Test Item Value Reference Range Interpretation Comments CALCIUM IONIZED (test code = AMILCAR) 1.21 MMOL/L 1.09-1.30 N GLUCOSE [id number] 05:39:00 Test Item Value Reference Range Interpretation Comments GLUCOSE BEDSIDE (test 175 MG/DL 70-110 H Perfor med by certified code = GLUBED) 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 [facility] GLUCOSE [id number] 20:49:00 Test Item Value Reference Range Interpretation Comments GLUCOSE BEDSIDE (test 167 MG/DL 70-110 H Perfor med by certified code = GLUBED) 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 [facility] GLUCOSE [id number] 17:03:00 Test Item Value Reference Range Interpretation Comments GLUCOSE BEDSIDE (test 127 MG/DL 70-110 H Perfor med by certified code = GLUBED) 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 [facility] GLUCOSE [id number] 11:54:00 Test Item Value Reference Range Interpretation Comments GLUCOSE BEDSIDE (test 177 MG/DL 70-110 H Perfor med by certified code = GLUBED) 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 [facility] GLUCOSE [id number] 06:39:00 Test Item Value Reference Range Interpretation Comments GLUCOSE BEDSIDE (test 153 MG/DL 70-110 H Perfor med by certified code = GLUBED) 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 [facility] GLUCOSE [id number] 19:51:00 Test Item Value Reference Range Interpretation Comments GLUCOSE BEDSIDE (test 165 MG/DL 70-110 H Perfor med by certified code = GLUBED) 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 [facility] GLUCOSE [id number] 17:15:00 Test Item Value Reference Range Interpretation Comments GLUCOSE BEDSIDE (test 188 MG/DL 70-110 H Perfor med by certified code = GLUBED) 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 [facility] GLUCOSE [id number] 12:16:00 Test Item Value Reference Range Interpretation Comments GLUCOSE BEDSIDE (test 132 MG/DL 70-110 H Perfor med by certified code = GLUBED) 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 [facility] GLUCOSE [id number] 10:20:00 Test Item Value Reference Range Interpretation Comments GLUCOSE BEDSIDE (test 131 MG/DL 70-110 H Perfor med by certified code = GLUBED) 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 [facility] CBC W/AUTO [id number] 08:33:00 Test Item Value Reference Range Interpretation [...] (test code NO = MDIFF) BASIC METABOLIC [id number] 07:37:00 Test Item Value Reference Range Interpretation [...] code = 10.1 mg/dL 8.0-10.5 N CA) [id number] 07:37:00 Test Item Value Reference Range Interpretation Comments PHOSPHOROUS (test code = PHOS) 3.4 MG/DL 2.5-4.9 N [id number] 07:37:00 Test Item Value Reference Range Interpretation Comments MAGNESIUM (test code = MAG) 2.31 mg/dL 1.80-2.40 [id number] 06:49:00 Test Item Value Reference Range Interpretation Comments VANCOMYCIN (test code = VANCO) 19.9 mcg/mL GLUCOSE [id number] 06:17:00 Test Item Value Reference Range Interpretation Comments GLUCOSE BEDSIDE (test 173 MG/DL 70-110 H Perfor med by certified code = GLUBED) 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 [facility] - NM BONE 3 [id number] 00:00:00 [facility] : 1955 Sex: F FAX: Delmy Howell [phone] [place]: St: ADM FAX: Kasey Ochoa MD [phone] FAX: Jim Mazariegos MD [phone] FAX: Adoins Canchola MD [phone] Name: MESERET MOTTA [facility] : 1955 Age/S: 67/F [address] [place] [address] Unit #: [id number] Loc: G.[address] [place] [address] Phys: Kasey Mendez MD Acct: [id number] Dis Date: Status: ADM IN PHONE #: [phone] Exam Date: 07/04/20 22 1506 FAX #: [phone] Reason: left foot ulcers EXAMS: CPT CODE: [id number] NM BONE 3 PHASE 14137 PROCEDURE INFORMATION: Exam: NM Bone and/or Joint, [...] 1 Signed Report (CONTINUED) FAX: Delmy Howell [phone] [place]: St: ADM FAX: Kasey Ochoa MD [phone] FAX: Jim Mazariegos MD [phone] FAX: Adonis Canchola MD [phone] Name: MESERET MOTTA [facility] : 1955 Age/S: 67/F [address] [place], [place] [address] Unit #: [id number] Loc: G.4404 [place] [address] Phys: Kasey Mendez MD Acct: [id number] Dis Date: Status: ADM IN PHONE #: [phone] ExamDate: 07/04/2022 1506 FAX #: [phone] Reason: left foot ulcers EXAMS: CPT CODE: [id number] NM BONE 3 PHASE 65477 (Continued) noted on the left foot plain radiographs. at 1850 Reported and signed by: Gus Moura M.D. CC: Delmy Ashton MD; Kasey Mendez MD; Jim Dhillon MD; Adonis Gaytan MD Technologist: Joss Cobb, ARRT (N)(CT); ... 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 [facility] GLUCOSE [id number] 15:58:00 Test Item Value Reference Range Interpretation Comments GLUCOSE BEDSIDE (test 131 MG/DL 70-110 H Perfor med by certified code = GLUBED) 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 [facility] GLUCOSE [id number] 11:38:00 Test Item Value Reference Range Interpretation Comments GLUCOSE BEDSIDE (test 202 MG/DL 70-110 H Perfor med by certified code = GLUBED) 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 [facility] BASIC METABOLIC [id number] 08:17:00 Test Item Value Reference Range Interpretation [...] the recommended for bhumika for GFRby the [facility] on for Adults.The GFR will not calculate if th e sex is unknown or if thepatient's ag e is <18 years. CREATININE (test 4.5 mg/dL 0.6-1.3 H code = CREAT) CALCIUM (test code = 9.2 mg/dL 8.0-10.5 N CA) CBC W/AUTO [id number] 07:54:00 Test Item Value Reference Range Interpretation [...] REQUIRED (test code NO = MDIFF) GLUCOSE [id number] 05:40:00 Test Item Value Reference Range Interpretation Comments GLUCOSE BEDSIDE (test 170 MG/DL 70-110 H Perfor med by certified code = GLUBED) 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 [facility] GLUCOSE [id number] 19:15:00 Test Item Value Reference Range Interpretation Comments GLUCOSE BEDSIDE (test 154 MG/DL 70-110 H Perfor med by certified code = GLUBED) 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 [facility] GLUCOSE [id number] 17:40:00 Test Item Value Reference Range Interpretation Comments GLUCOSE BEDSIDE (test 134 MG/DL 70-110 H Perfor med by certified code = GLUBED) 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 [facility] GLUCOSE [id number] 11:39:00 Test Item Value Reference Range Interpretation Comments GLUCOSE BEDSIDE (test 156 MG/DL 70-110 H Perfor med by certified code = GLUBED) 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 [facility] GLUCOSE [id number] 08:37:00 Test Item Value Reference Range Interpretation Comments GLUCOSE BEDSIDE (test 222 MG/DL 70-110 H Perfor med by certified code = GLUBED) 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 [facility] BASIC METABOLIC [id number] 06:58:00 Test Item Value Reference Range Interpretation [...] the recommended for bhumika for GFRby the [facility] on for Adults.The GFR will not calculate if th e sex is unknown or if thepatient's ag e is <18 years. CREATININE (test 3.4 mg/dL 0.6-1.3 H code = CREAT) CALCIUM (test code = 9.0 mg/dL 8.0-10.5 N CA) [id number] 06:58:00 Test Item Value Reference Range Interpretation Comments PHOSPHOROUS (test code = PHOS) 3.0 MG/DL 2.5-4.9 [id number] 06:58:00 Test Item Value Reference Range Interpretation Comments MAGNESIUM (test code = MAG) 1.89 mg/dL 1.80-2.40 N CALCIUM [id number] 06:58:00 Test Item Value Reference Range Interpretation Comments CALCIUM IONIZED (test code = AMILCAR) 1.11 MMOL/L 1.09-1.30 N CBC W/AUTO [id number] 06:47:00 Test Item Value Reference Range Interpretation [...] REQUIRED (test code NO = MDIFF) GLUCOSE [id number] 21:27:00 Test Item Value Reference Range Interpretation Comments GLUCOSE BEDSIDE (test 224 MG/DL 70-110 H Perfor med by certified code = GLUBED) 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 [facility] GLUCOSE [id number] 16:50:00 Test Item Value Reference Range Interpretation Comments GLUCOSE BEDSIDE (test 174 MG/DL 70-110 H Perfor med by certified code = GLUBED) 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 [facility] BASIC METABOLIC [id number] 15:03:00 Test Item Value Reference Range Interpretation [...] mg/dL 8.0-10.5 N CA) POC ARTERIAL BLOOD [id number] 14:28:00 Test Item Value Reference Range Interpretation Comments POC ARTERIAL BLOOD GAS PH (test 7.343 7.35-7.45 L code = POCPHA) POC ARTERIAL BLOOD GAS PCO2 (test 47.7 mmHg 35.0-45 H code = GVHXSJ3H) POC TCO2 ARTERIAL (test code = 27.4 POCTCO2) POC ARTERIAL BLOOD GAS PO2 (test 105.9 mmHg 80-100.0 H code = AOJZQ6S) POC HCO3 ARTERIAL (test code = 25.9 MMOL/L 22.0-26.0 N TQMEWL3G) POC BASE EXCESS (test code = 0.2 MMOL/L -4.0-4.0 N POCBEA) POC O2 SATURATION (test code = 97.7 % 90-100 N POCO2S) BASIC METABOLIC [id number] 14:28:00 Test Item Value Reference Range Interpretation [...] = POCGLU) 188 MG/DL 70-110 H HEMOGLOBIN [id number] 14:28:00 Test Item Value Reference Range Interpretation Comments HEMOGLOBIN ABG (test code = 10.0 G/DL 11.0-15.0 L HGB/ABG) [id number] 14:28:00 Test Item Value Reference Range Interpretation Comments HEMATOCRIT (test code = HCT/ABG) 29 % 33.0-45.0 L POC LACTIC [id number] 14:28:00 Test Item Value Reference Range Interpretation Comments POC LACTIC ACID (test code = 1.3 mmol/l 0.9-1.7 N POCLAC) GLUCOSE [id number] 14:10:00 Test Item Value Reference Range Interpretation Comments GLUCOSE BEDSIDE (test 182 MG/DL 70-110 H Perfor med by certified code = GLUBED) 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 [facility] GLUCOSE [id number] 10:38:00 Test Item Value Reference Range Interpretation Comments GLUCOSE BEDSIDE (test 251 MG/DL 70-110 H Perfor med by certified code = GLUBED) 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 [facility] [id number] 08:07:00 Test Item Value Reference Range Interpretation Comments VANCOMYCIN (test code = VANCO) 22.4 mcg/mL COMMENTS: senior controls analyst: draw vanc level before dialysis on Sunday 07/01BASIC METABOLIC [id number] 07:58:00 Test Item Value Reference Range Interpretation [...] code = 9.7 mg/dL 8.0-10.5 N CA) [id number] 07:58:00 Test Item Value Reference Range Interpretation Comments PHOSPHOROUS (test code = PHOS) 4.6 MG/DL 2.5-4.9 N [id number] 07:58:00 Test Item Value Reference Range Interpretation Comments MAGNESIUM (test code = MAG) 2.20 mg/dL 1.80-2.40 N CBC W/AUTO [id number] 07:39:00 Test Item Value Reference Range Interpretation [...] REQUIRED (test code NO = MDIFF) GLUCOSE [id number] 05:20:00 Test Item Value Reference Range Interpretation Comments GLUCOSE BEDSIDE (test 148 MG/DL 70-110 H Perfor med by certified code = GLUBED) 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 : 1955 Sex: F FAX: Delmy Howell [phone] [place]: St: [facility] FAX: Serge Shetty MD FAX: Jim Mazariegos MD [phone] FAX: Adonis Canchola MD [phone] Name: MESERET MOTTA [facility] : 1955 Age/S: 67/F [address] [place] [address] Blvd Unit #: [id number] Loc: [address] [place] [address], [place] [address] Phys: Serge Shetty MD Acct: [id number] Dis Date: Status: ADM IN PHONE #: [phone] Exam Date: 07/01/20221536 FAX #: [phone] Reason: hypoxia EXAMS: CPT CODE: [id number] XR CHEST 1 V 25835 PROCEDURE INFORMATION: Exam: XR Chest Exam date [...] Serge Shetty MD; Jim Dhillon MD; Adonis Gayatn MD Technologist: RT Max(R) Trnscrd Date/Time/By: 07/01/2022 (1740) : By: [email or web address] Orig Print D/T: S: 07/01/2022 (1740) PAGE 1 Signed Report- US PELVIS [id number] 00:00:00 [facility] : 1955 Sex: F Name: MESERET MOTTA [facility] [place] : 1955 Age/S: 67 / F [address] [place] [address] Blvd Unit #: [id number] Loc: [place] [address] Phys: Adonis Gaytan MD Acct: [id number] Dis Date: Status: ADM IN PHONE #: [phone] Exam Date: 07/01/2022 1406 FAX #: [phone] Reason: DUB...2 weeks of bleeding after 15 years of men EXAMS: CPT CODE: [id number] US PELVIS COMPLETE 46190 PROCEDURE INFORMATION: Exam: US Pelvis Complete, Transabdominal [...] Adonis Gaytan MD Technologist: Karol Quinn RDMS(AB)(OB) Trnvab Date/Time: 07/01/2022 (1433) [email or web address] Orig Print D/T: S: 07/01/2022 (1691) Probe: PAGE 1 Signed Report- US TRANSVAGINAL NON [id number] 00:00:[facility] : 1955 Sex: F Name: MESERET MOTTA [facility] : 1955 Age/S: 67 / F [address] [place] [address] Unit #: [id number] Loc: [place] [address] Phys: Adonis Gaytan MD Acct: [id number] Dis Date: Status: ADM IN PHONE #: [phone] Exam Date: 07/01/2022 1407 FAX #: [phone] Reason: see US Pelvic Non OB Complete EXAMS: CPT CODE: [id number] [place] [address] PROCEDURE INFORMATION: Exam: US Pelvis Complete, Transabdominal [...] Orig Print D/T: S: 07/01/2022 (1434) Probe: [id number] PAGE 1 Signed ReportGLUCOSE [id number] 19:48:00 Test Item Value Reference Range Interpretation Comments GLUCOSE BEDSIDE (test 143 MG/DL 70-110 H Perfor med by certified code = GLUBED) 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 [facility] GLUCOSE [id number] 18:11:00 Test Item Value Reference Range Interpretation Comments GLUCOSE BEDSIDE (test 152 MG/DL 70-110 H Perfor med by certified code = GLUBED) 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 [facility] GLUCOSE [id number] 13:24:00 Test Item Value Reference Range Interpretation Comments GLUCOSE BEDSIDE (test 120 MG/DL 70-110 H Perfor med by certified code = GLUBED) 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 [facility] BASIC METABOLIC [id number] 09:03:00 Test Item Value Reference Range Interpretation [...] for bhumika for GFRby the [facility] on for Adults.The GFR will not calculate if th e sex is unknown or if thepatient's ag e is <18 years. CREATININE (test 4.1 mg/dL 0.6-1.3 H code = CREAT) CALCIUM (test code = 9.6 mg/dL 8.0-10.5 N CA) CBC W/AUTO [id number] 07:48:00 Test Item Value Reference Range Interpretation [...] REQUIRED (test NO code = MDIFF) GLUCOSE [id number] 20:09:00 Test Item Value Reference Range Interpretation Comments GLUCOSE BEDSIDE (test 172 MG/DL 70-110 H Perfor med by certified code = GLUBED) 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 [facility] GLUCOSE [id number] 15:48:00 Test Item Value Reference Range Interpretation Comments GLUCOSE BEDSIDE (test 108 MG/DL 70-110 N Perfor med by certified code = GLUBED) 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 [facility] GLUCOSE [id number] 11:35:00 Test Item Value Reference Range Interpretation Comments GLUCOSE BEDSIDE (test 172 MG/DL 70-110 H Perfor med by certified code = GLUBED) 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 [facility] GLUCOSE [id number] 08:25:00 Test Item Value Reference Range Interpretation Comments GLUCOSE BEDSIDE (test 186 MG/DL 70-110 H Perfor med by certified code = GLUBED) 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 [facility] BASIC METABOLIC [id number] 07:50:00 Test Item Value Reference Range Interpretation [...] code = 9.3 mg/dL 8.0-10.5 N CA) [id number] 07:50:00 Test Item Value Reference Range Interpretation Comments PHOSPHOROUS (test code = PHOS) 5.5 MG/DL 2.5-4.9 H [id number] 07:50:00 Test Item Value Reference Range Interpretation Comments MAGNESIUM (test code = MAG) 2.32 mg/dL 1.80-2.40 N CBC W/AUTO [id number] 07:28:00 Test Item Value Reference Range Interpretation [...] REQUIRED (test code NO = MDIFF) GLUCOSE [id number] 19:59:00 Test Item Value Reference Range Interpretation Comments GLUCOSE BEDSIDE (test 141 MG/DL 70-110 H Perfor med by certified code = GLUBED) 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 [facility] GLUCOSE [id number] 18:58:00 Test Item Value Reference Range Interpretation Comments GLUCOSE BEDSIDE (test 156 MG/DL 70-110 H Perfor med by certified code = GLUBED) 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 [facility] GLUCOSE [id number] 11:35:00 Test Item Value Reference Range Interpretation Comments GLUCOSE BEDSIDE (test 112 MG/DL 70-110 H Perfor med by certified code = GLUBED) 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 [facility] GLUCOSE [id number] 09:19:00 Test Item Value Reference Range Interpretation Comments GLUCOSE BEDSIDE (test 167 MG/DL 70-110 H Perfor med by certified code = GLUBED) 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 [facility] BASIC METABOLIC [id number] 08:14:00 Test Item Value Reference Range Interpretation [...] 9.1 mg/dL 8.0-10.5 N CA) BASIC METABOLIC [id number] 06:43:00 Test Item Value Reference Range Interpretation [...] be done morning of Heart CathCBC W/AUTO [id number] 06:23:00 Test Item Value Reference Range Interpretation [...] To be done morning of Heart CathGLUCOSE [id number] 21:04:00 Test Item Value Reference Range Interpretation Comments GLUCOSE BEDSIDE (test 99 MG/DL 70-110 N Perfor med by certified code = GLUBED) 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 [facility] GLUCOSE [id number] 16:53:00 Test Item Value Reference Range Interpretation Comments GLUCOSE BEDSIDE (test 147 MG/DL 70-110 H Perfor med by certified code = GLUBED) 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 [facility] GLUCOSE [id number] 15:43:00 Test Item Value Reference Range Interpretation Comments GLUCOSE BEDSIDE (test 154 MG/DL 70-110 H Perfor med by certified code = GLUBED) 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 [facility] [id number] 14:34:00 Test Item Value Reference Range Interpretation Comments ACT-ISTAT (test code 281 SEC 74-137 H Perform ed by certified = ACTI) 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 [facility] [id number] 08:42:00 Test Item Value Reference Range Interpretation Comments HGBA1C% (test code = HGBA1C%) 5.8 %A1C 4.8-6.0 N GLUCOSE [id number] 08:37:00 Test Item Value Reference Range Interpretation Comments GLUCOSE BEDSIDE (test 171 MG/DL 70-110 H Perfor med by certified code = GLUBED) 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 [facility] CBC W/AUTO [id number] 08:24:00 Test Item Value Reference Range Interpretation [...] (test code NO = MDIFF) BASIC METABOLIC [id number] 07:56:00 Test Item Value Reference Range Interpretation [...] 9.4 mg/dL 8.0-10.5 N CA) COAGULATION TIME [id number] 07:05:00 Test Item Value Reference Range Interpretation Comments COAGULATION TIME 245 SECONDS Performed b y ACTIVATED (test code = certi fied 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 operator ACT) at [facility] COAGULATION TIME [id number] 07:05:00 Test Item Value Reference Range Interpretation Comments COAGULATION TIME 234 SECONDS Performed b y ACTIVATED (test code = certi fied 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 operator ACT) at [facility] GLUCOSE [id number] 06:07:00 Test Item Value Reference Range Interpretation Comments GLUCOSE BEDSIDE (test 170 MG/DL 70-110 H Perfor med by certified code = GLUBED) 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 [facility] GLUCOSE [id number] 19:40:00 Test Item Value Reference Range Interpretation Comments GLUCOSE BEDSIDE (test 143 MG/DL 70-110 H Perfor med by certified code = GLUBED) 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 [facility] [id number] 17:22:00 Test Item Value Reference Range Interpretation Comments ACT-ISTAT (test code 275 SEC 74-137 H Perform ed by certified = ACTI) 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 [facility] [id number] 16:11:00 Test Item Value Reference Range Interpretation Comments ACT-ISTAT (test code 251 SEC 74-137 H Perform ed by certified = ACTI) 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 [facility] GLUCOSE [id number] 14:10:00 Test Item Value Reference Range Interpretation Comments GLUCOSE BEDSIDE (test 192 MG/DL 70-110 H Perfor med by certified code = GLUBED) 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 [facility] GLUCOSE [id number] 11:52:00 Test Item Value Reference Range Interpretation Comments GLUCOSE BEDSIDE (test 215 MG/DL 70-110 H Perfor med by certified code = GLUBED) 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 [facility] COVID 19 Asymptomatic IH [id number] 10:33:00 Test Item Value Reference Range Interpretation [...] moderate, high or waivedcomplexit y tests. GLUCOSE [id number] 08:19:00 Test Item Value Reference Range Interpretation Comments GLUCOSE BEDSIDE (test 220 MG/DL 70-110 H [facility] med by certified code = GLUBED) 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 [facility] COMPREHENSIVE METABOLIC [id number] 07:53:00 Test Item Value Reference Range Interpretation [...] recommended for bhumika for [facility]by the [facility] for Ad[facility].The GFR [...] 20-125 H TOTAL (test code = ALKP) [id number] 07:53:00 Test Item Value Reference Range Interpretation Comments PHOSPHOROUS (test code = PHOS) 6.8 MG/DL 2.5-4.9 H [id number] 07:53:00 Test Item Value Reference Range Interpretation Comments MAGNESIUM (test code = MAG) 2.24 mg/dL 1.80-2.40 GLUCOSE [id number] 06:28:00 Test Item Value Reference Range Interpretation Comments GLUCOSE BEDSIDE (test 214 MG/DL 70-110 H Perfor med by certified code = GLUBED) 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 [facility] CBC W/AUTO [id number] 05:40:00 Test Item Value Reference Range Interpretation [...] To be done morning of Heart CathRBC [id number] 05:40:00 Test Item Value Reference Range Interpretation Comments ANISOCYTOSIS (test code = ANISO) SLIGHT MACROCYTOSIS (test code = MACR) FEW COMMENTS: To be done morning of Heart Cath- XR FOOT 3 + V [id number] 00:00:00 [facility] : 1955 Sex: F FAX: Delmy Howell [phone] [place]: St: ADM FAX: Desire Marques MD [phone] FAX:Jim Mazariegos MD [phone] Name: MESERET MOTTA [facility] : 1955 Age/S: 67/F [address] [place] [address] Unit #: [id number] Loc: G.4421 [place] [address] Phys: Desire Byers MD Acct: [id number] Dis Date: Status: ADM IN PHONE #: [phone] Exam Date: 06/25/2022 1610 FAX #: [phone] Reason: L foot ulcers EXAMS: CPT CODE: [id number] XR FOOT 3 + V [place] 41895 PROCEDURE INFORMATION: Exam: XR Left Foot Exam [...] Gabbi(R) Trnscrd Date/Time/By: 06/26/2022 (841) : By: DanieCS18 Orig Print D/T: S: 06/26/2022 (841) PAGE 1 Signed ReportGLUCOSE [id number] 19:44:00 Test Item Value Reference Range Interpretation Comments GLUCOSE BEDSIDE (test 198 MG/DL 70-110 H Perfor med by certified code = GLUBED) 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 [facility] GLUCOSE [id number] 16:13:00 Test Item Value Reference Range Interpretation Comments GLUCOSE BEDSIDE (test 189 MG/DL 70-110 H Perfor med by certified code = GLUBED) 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 [facility] GLUCOSE [id number] 11:12:00 Test Item Value Reference Range Interpretation Comments GLUCOSE BEDSIDE (test 186 MG/DL 70-110 H Perfor med by certified code = GLUBED) 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 [facility] CBC W/AUTO [id number] 10:49:00 Test Item Value Reference Range Interpretation [...] MDIFF) COMMENTS: Daily while on HeparinCOMPREHENSIVE METABOLIC [id number] 07:37:00 Test Item Value Reference Range Interpretation [...] the recommended for bhumika for GFRby the [facility]ati on for Adults.The [...] H TOTAL (test code = ALKP) GLUCOSE [id number] 05:53:00 Test Item Value Reference Range Interpretation Comments GLUCOSE BEDSIDE (test 159 MG/DL 70-110 H Perfor med by certified code = GLUBED) 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 [facility] GLUCOSE [id number] 19:09:00 Test Item Value Reference Range Interpretation Comments GLUCOSE BEDSIDE (test 171 MG/DL 70-110 H Perfor med by certified code = GLUBED) 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 [facility] GLUCOSE [id number] 15:56:00 Test Item Value Reference Range Interpretation Comments GLUCOSE BEDSIDE (test 159 MG/DL 70-110 H Perfor med by certified code = GLUBED) 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 [facility] GLUCOSE [id number] 12:56:00 Test Item Value Reference Range Interpretation Comments GLUCOSE BEDSIDE (test 110 MG/DL 70-110 N Perfor med by certified code = GLUBED) 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 [facility] ACUTE HEPATITIS [id number] 12:08:00 Test Item Value Reference Range Interpretation Comments AB HEPATITIS A IGM (test NON REACTIVE INDEX NON REACT. code = HAVMAB) AG HEPATITIS B SURFACE NON REACTIVE INDEX NonReactive (test code = HBSAG) AB HEPATITIS B CORE IGM NON REACTIVE INDEX NON REACT. (test code = HBCMAB) AB HEPATITIS C (test code NON REACTIVE INDEX NON REACT. = HCVAB) AB HEPATITIS B [id number] 12:08:00 Test Item Value Reference Range Interpretation Comments AB HEPATITIS B 11.7 mIU/mL See_Comment Verified by repeat SURFACE (test code = analysi s Status of HBSAB) Immunity Anti-H Bs Level --- I nconsis tent with Immun ity 0.0 - 9.9Consistent with Immunity >9.9Pe rformed At: [facility] [address]pdtchp2458 [place], [place] [id number] Kota Loera MD Ph:[phone] [Automated mess age] The system Fliqq generated this result transmitted ref erence range: Immunity >9.9. The reference r chikis was not used to interpret this result as normal/abnor mal. BASIC METABOLIC [id number] 08:08:00 Test Item Value Reference Range Interpretation [...] for bhumika for GFRby the [facility] Foundati on for Adults.The GFR will not calculate if th e sex is unknown or if thepatient's ag e is <18 years. CREATININE (test 5.8 mg/dL 0.6-1.3 H code = CREAT) CALCIUM (test code = 9.9 mg/dL 8.0-10.5 N CA) [id number] 08:08:00 Test Item Value Reference Range Interpretation Comments PHOSPHOROUS (test code = PHOS) 7.1 MG/DL 2.5-4.9 H [id number] 08:08:00 Test Item Value Reference Range Interpretation Comments MAGNESIUM (test code = MAG) 2.64 mg/dL 1.80-2.40 H CBC W/AUTO [id number] 07:09:00 Test Item Value Reference Range Interpretation [...] = MDIFF) COMMENTS: Daily while on HeparinGLUCOSE [id number] 05:45:00 Test Item Value Reference Range Interpretation Comments GLUCOSE BEDSIDE (test 190 MG/DL 70-110 H Perfor med by certified code = GLUBED) 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 [facility] GLUCOSE [id number] 19:34:00 Test Item Value Reference Range Interpretation Comments GLUCOSE BEDSIDE (test 159 MG/DL 70-110 H Perfor med by certified code = GLUBED) 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 [facility] GLUCOSE [id number] 17:04:00 Test Item Value Reference Range Interpretation Comments GLUCOSE BEDSIDE (test 167 MG/DL 70-110 H Perfor med by certified code = GLUBED) 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 [facility] UA RFLX MICR CULT IF [id number] 16:38:00 Test Item Value Reference Range Interpretation [...] for culture: Gross HematuriaSpecimen Description: CLEAN CATCHGLUCOSE [id number] 12:14:00 Test Item Value Reference Range Interpretation Comments GLUCOSE BEDSIDE (test 147 MG/DL 70-110 H Perfor med by certified code = GLUBED) 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 [facility] THROMBOPLASTIN TIME [id number] 11:46:00 Test Item Value Reference Range Interpretation Comments THROMBOPLASTIN TIME 72.0 Seconds 25.0-39.5 H Therape utic Range: PARTIAL (test code = 50.4 - 88.3 Seconds PTT) Effective 10/22/2018 GLUCOSE [id number] 06:01:00 Test Item Value Reference Range Interpretation Comments GLUCOSE BEDSIDE (test 246 MG/DL 70-110 H Perfor med by certified code = GLUBED) 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 [facility] THROMBOPLASTIN TIME [id number] 05:17:00 Test Item Value Reference Range Interpretation Comments THROMBOPLASTIN TIME 53.5 Seconds 25.0-39.5 H Therape utic Range: PARTIAL (test code = 50.4 - 88.3 Seconds PTT) Effective 10/22/2018 CBC W/AUTO [id number] 04:16:00 Test Item Value Reference Range Interpretation [...] Daily while on Heparin- CT CHEST W/O [id number] 00:00:[address] [facility] : 1955 Sex: F Name: MESERET MOTTA [facility] : 1955 Age/S: 67 / F [address] [place] [address] Unit #: [id number] Loc: [place] [address] Phys: Aleja Funk PAM Acct: [id number] Dis Date: Status: ADM INPHONE #: [phone] Exam Date: 06/22/2022 09 FAX #: [phone] Reason: Dyspnea, CAD EXAMS: CPT CODE: [id number] CT CHEST W/O CONTRAST 14240 PROCEDURE INFORMATION: Exam: CT Chest Without Contrast;Diagnostic [...] 1 Signed Report (CONTINUED) Name: MESERET MOTTA [place] : 1955 Age/S: 67 / F [address] [place] [address] Blvd Unit #: [id number] Loc: [place] [address] Phys: Aleja Funk Acct: [id number] DisDate: Status: ADM IN PHONE #: [phone] Exam Date: 06/22/2022954 FAX #: [phone] Reason: Dyspnea, CAD EXAMS: CPT CODE: [id number] CT CHEST W/O CONTRAST 75378 (Continued) 4. There is a small pericardial [...] 06/23/2022 (903) PAGE 2 Signed Report GLUCOSE [id number] 22:01:00 Test Item Value Reference Range Interpretation Comments GLUCOSE BEDSIDE (test 186 MG/DL 70-110 H Perfor med by certified code = GLUBED) 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 [facility] THROMBOPLASTIN TIME [id number] 21:11:00 Test Item Value Reference Range Interpretation Comments THROMBOPLASTIN TIME 51.2 Seconds 25.0-39.5 H Therape utic Range: PARTIAL (test code = 50.4 - 88.3 Seconds PTT) Effective 10/22/2018 GLUCOSE [id number] 18:42:00 Test Item Value Reference Range Interpretation Comments GLUCOSE BEDSIDE (test 125 MG/DL 70-110 H Perfor med by certified code = GLUBED) 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 [facility] THROMBOPLASTIN TIME [id number] 13:02:00 Test Item Value Reference Range Interpretation Comments THROMBOPLASTIN TIME 40.0 Seconds 25.0-39.5 H Therape utic Range: PARTIAL (test code = 50.4 - 88.3 Seconds PTT) Effective 10/22/2018 PTH INTACT [id number] 12:41:00 Test Item Value Reference Range Interpretation Comments PARATHYROID HORMONE INTACT (test 661.2 pg/mL 14.0-72.0 H code = PARAI) B-TYPE NATRIURETIC [id number] 12:23:00 Test Item Value Reference Range Interpretation Comments B-TYPE NATRIURETIC PEPTIDE (test 557.0 PG/ML 0-100 H code = BNP) PROTHROMBIN [id number] 12:06:00 Test Item Value Reference Range Interpretation [...] (to prevent recurrent infar ct). BASIC METABOLIC [id number] 12:04:00 Test Item Value Reference Range Interpretation [...] 9.4 mg/dL 8.0-10.5 N CA) CBC W/AUTO [id number] 11:56:00 Test Item Value Reference Range Interpretation [...] REQUIRED (test NO code = MDIFF) GLUCOSE [id number] 05:45:00 Test Item Value Reference Range Interpretation Comments GLUCOSE BEDSIDE (test 214 MG/DL 70-110 H Perfor med by certified code = GLUBED) 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 [facility] THROMBOPLASTIN TIME [id number] 01:28:00 Test Item Value Reference Range Interpretation Comments THROMBOPLASTIN TIME 30.3 Seconds 25.0-39.5 N Therape utic Range: PARTIAL (test code = 50.4 - 88.3 Seconds PTT) Effective 10/22/2018 COMMENTS: DRAW PTT 6 HOURS AFTER INITIATION OF HEPARIN- DUP VEIN [id number] 00:00:00[facility] MESERET MOT[facility] : 1955 Sex: F Name: MESERET MOTTA [facility] [place] : 1955 Age/S: 67 / F [address] Unit #: [id number] Loc: [place] [address] Phys: Aleja Funk Acct: [id number] Dis Date: Status: ADM IN PHONE #: [phone] Exam Date: 06/22/2022 1510 FAX #: [phone] Reason: Vein mapping for CABG EXAMS: CPT CODE: [id number] DUP VEIN YEIMI 30160 PROCEDURE INFORMATION: Exam: US Duplex Lower Extremity [...] compressibility. Greater saphenous vein is patent. Right grea ter saphenous vein-upper thigh: 4.9 mm Right greater [...] 1 Signed Report- DOP ART SGL LEVEL [id number] 00:00:[address] : 1955 Sex: F Name: MESERET MOTTA [facility] : 1955 Age/S: 67 / F [address] [place] [address] Bl Unit #: [id number] Loc: [place] [address] Phys: Aleja Funk Acct: [id number] Dis Date: Status: ADM INPHONE #: [phone] Exam Date: 06/22/2022 1509 FAX #: [phone] Reason: PVD EXAMS: CPT CODE: [id number] DOP ART SGL LEVEL YEIMI 11433 PROCEDURE INFORMATION: Exam: US Duplex Lower Extremity [...] [facility] : 1955 Age/S: 67 / F [address] [place] [address] Unit #: [id number] Loc: [place] [address] Phys: Aleja Funk Acct: [id number] Dis Date: Status: ADM IN PHONE #: [phone] Exam Date: 06/22/2022 1500 FAX #: [phone] Reason: PVD EXAMS: CPT CODE: [id number] DOP ART SGL LEVEL YEIMI 12133 (Continued) CC: Delmy Ashton MD; Jim Dhillon MD; Aleja OROZCO Technologist: Monty Thomas Trnscb Date/Time: 06/22/2022(1654) DanieMR72 Orig Print D/T: S: 06/22/2022 (165) Probe: PAGE 2 Signed Report- DUP EXTRACRANIAL [id number] 00:00:[address] [address] : 1955 Sex: F Name: MESERET MOTTA [facility] : 1955 Age/S: 67 / F [address] Unit #: [id number] Loc: [place] [address] Phys: Aleja Funk Acct: [id number] Dis Date: Status: ADM INPHONE #: [phone] Exam Date: 06/22/2022 1509 FAX #: [phone] Reason: CABG workup EXAMS: CPTCODE: [id number] DUP EXTRACRANIAL YEIMI 82763 PROCEDURE INFORMATION: Exam: US Duplex Bilateral Extracranial [...] 180 Reported and signed by: Paramjit Villar M.D. PAGE 1 Signed Report (CONTINUED) Name: MESERET MOTTA [facility] : 1955 Age/S: 67 /F [address] [place] [address] Blvd Unit #: [id number] Loc: [place] [address] Phys: Aleja Funk Acct: [id number] Dis Date: Status: ADM IN PHONE #: [phone] Exam Date: 06/22/2022 1509 FAX #: [phone] Reason: CABG workup EXAMS: CPT CODE: [id number] DUP EXTRACRANIAL YEIMI 93769 (Continued) CC: Kerry Ashton MD; Jim Dhillon MD; Aleja OROZCO Technologist: Monty Thomas [facility] Date/Time: 06/22/2022 (1806) [email or web address] Orig Print D/T: S: 06/22/2022 (1807) Probe: PAGE 2 Signed ReportGLUCOSE [id number] 20:43:00 Test Item Value Reference Range Interpretation Comments GLUCOSE BEDSIDE (test 226 MG/DL 70-110 H Perfor med by certified code = GLUBED) 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 [facility] CBC W/AUTO [id number] 20:20:00 Test Item Value Reference Range Interpretation [...] NOT ALREADY DONE WITHIN LAST 24 HOURSGLUCOSE [id number] 18:45:00 Test Item Value Reference Range Interpretation Comments GLUCOSE BEDSIDE (test 168 MG/DL 70-110 H Perfor med by certified code = GLUBED) 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 [facility] PROTHROMBIN [id number] 18:42:00 Test Item Value Reference Range Interpretation [...] COMMENTS: If not already done in ERPOC [id number] 16:16:00 Test Item Value Reference Range Interpretation Comments POC glucose (test 89 mg/dL 65-99 Coding Quality Analyst N desire: Rubin code = 32069-3) EricDevice I D: [id number] able: RN Notified [facility] [id number] 16:16:00 Test Item Value Reference Range Interpretation Comments POC glucose (test 89 mg/dL 65-99 Coding Quality Analyst N desire: Rubin code = 76129-2) EricDevice I D: [id number] able: RN Notified [facility] [id number] 16:16:00 Test Item Value Reference Range Interpretation Comments POC glucose (test 89 mg/dL 65-99 Coding Quality Analyst N desire: Rubin code = 98198-2) EricDevice I D: [id number] able: RN Notified [facility] [id number] 16:16:00 Test Item Value Reference Range Interpretation Comments POC glucose (test 89 mg/dL 65-99 Coding Quality Analyst N desire: Rubin code = 35345-0) EricDevice I D: [id number] able: RN Notified [facility] [id number] 16:16:00 Test Item Value Reference Range Interpretation Comments POC glucose (test 89 mg/dL 65-99 Coding Quality Analyst N desire: Rubin code = 77386-1) EricDevice I D: [id number] able: RN Notified [facility] fwesoor9416-84-66 16:16:00 Test Item Value Reference Range Interpretation Comments POC glucose (test 89 mg/dL 65-99 Coding Quality Analyst N desire: Rubin code = 74162-9) EricDevice I D: [id number] able: RN Notified [facility] [id number] 16:16:00 Test Item Value Reference Range Interpretation Comments POC glucose (test 89 mg/dL 65-99 Coding Quality Analyst N desire: Rubin code = 52857-8) EricDevice I D: [id number] able: RN Notified [facility] [id number] 16:16:00 Test Item Value Reference Range Interpretation Comments POC glucose (test 89 mg/dL 65-99 Coding Quality Analyst N desire: Rubin code = 45655-2) EricDevice I D: [id number] able: RN Notified [facility] [id number] 16:16:00 Test Item Value Reference Range Interpretation Comments POC glucose (test 89 mg/dL 65-99 Coding Quality Analyst N desire: Rubin code = 41084-0) EricDevice I D: [id number] able: RN Notified [facility] iqavqpj7976-48-46 16:16:00 Test Item Value Reference Range Interpretation Comments POC glucose (test 89 mg/dL 65-99 Coding Quality Analyst N desire: Rubin code = 43875-5) EricDevice I D: [id number] able: RN Notified [facility] ngtisle2868-16-94 16:16:00 Test Item Value Reference Range Interpretation Comments POC glucose (test 89 mg/dL 65-99 Coding Quality Analyst N desire: Rubin code = 07761-7) EricDevice I D: [id number] able: RN Notified [facility]2022-10-19 16:16:00 Test Item Value Reference Range Interpretation Comments POC glucose (test 89 mg/dL 65-99 Coding Quality Analyst N desire: Rubin code = 59735-8) EricDevice I D: [id number] able: RN Notified [facility]2022-10-19 16:16:00 Test Item Value Reference Range Interpretation Comments POC glucose (test 89 mg/dL 65-99 Coding Quality Analyst N desire: Rubin code = 52359-3) EricDevice I D: [id number] able: RN Notified [facility] [id number] 13:03:01 Test Item Value Reference Range Interpretation Comments POC sodium (test code = 140 mmol/L 924-235 7201-0) POC potassium (test code 3.9 mmol/L 3.5-5.0 = 6298-4) POC glucose (test code = 78 mg/dL 65-99 2339-0) POC creatinine (test 4.6 mg/dl 0.5-0.9 H Operato r Name: code = 30100-1) Marko Corey verónicaziyad ID: [id number] POC hemoglobin (test 8.5 g/dL 12.0-16.0 L code = 718-7) POC hematocrit (test 25 % 37-47 L code = 4544-3) Lab Interpretation (test Abnormal code = 31375-6) [facility]2022-10-19 13:03:01 Test Item Value Reference Range Interpretation Comments POC sodium (test code = 140 mmol/L 340-680 0801-0) POC potassium (test code 3.9 mmol/L 3.5-5.0 = 6298-4) POC glucose (test code = 78 mg/dL 65-99 2339-0) POC creatinine (test 4.6 mg/dl 0.5-0.9 H Operato r Name: code = 24573-7) Zhu NarMor anabella ID: [id number] POC hemoglobin (test 8.5 g/dL 12.0-16.0 L code = 718-7) POC hematocrit (test 25 % 37-47 L code = 4544-3) Lab Interpretation (test Abnormal code = 00635-2) [facility]2022-10-19 13:03:01 Test Item Value Reference Range Interpretation Comments POC sodium (test code = 140 mmol/L 328-181 8087-0) POC potassium (test code 3.9 mmol/L 3.5-5.0 = 6298-4) POC glucose (test code = 78 mg/dL 65-99 2339-0) POC creatinine (test 4.6 mg/dl 0.5-0.9 H Operato r Name: code = 09484-4) Zhu NarMor anabella ID: [id number] POC hemoglobin (test 8.5 g/dL 12.0-16.0 L code = 718-7) POC hematocrit (test 25 % 37-47 L code = 4544-3) Lab Interpretation (test Abnormal code = 05959-0) [facility]2022-10-19 13:03:01 Test Item Value Reference Range Interpretation Comments POC sodium (test code = 140 mmol/L 081-005 3971-0) POC potassium (test code 3.9 mmol/L 3.5-5.0 = 6298-4) POC glucose (test code = 78 mg/dL 65-99 2339-0) POC creatinine (test 4.6 mg/dl 0.5-0.9 H Operato r Name: code = 17607-2) Zhu NarMor anabella ID: [id number] POC hemoglobin (test 8.5 g/dL 12.0-16.0 L code = 718-7) POC hematocrit (test 25 % 37-47 L code = 4544-3) Lab Interpretation (test Abnormal code = 53724-3) [facility]2022-10-19 13:03:01 Test Item Value Reference Range Interpretation Comments POC sodium (test code = 140 mmol/L 570-390 7246-0) POC potassium (test code 3.9 mmol/L 3.5-5.0 = 6298-4) POC glucose (test code = 78 mg/dL 65-99 2339-0) POC creatinine (test 4.6 mg/dl 0.5-0.9 H Operato r Name: code = 74545-5) Marko kyle ID: [id number] POC hemoglobin (test 8.5 g/dL 12.0-16.0 L code = 718-7) POC hematocrit (test 25 % 37-47 L code = 4544-3) Lab Interpretation (test Abnormal code = 79646-1) [facility]2022-10-19 13:03:01 Test Item Value Reference Range Interpretation Comments POC sodium (test code = 140 mmol/L 668-004 3848-0) POC potassium (test code 3.9 mmol/L 3.5-5.0 = 6298-4) POC glucose (test code = 78 mg/dL 65-99 2339-0) POC creatinine (test 4.6 mg/dl 0.5-0.9 H Operato r Name: code = 85690-6) Marko kyle ID: [id number] POC hemoglobin (test 8.5 g/dL 12.0-16.0 L code = 718-7) POC hematocrit (test 25 % 37-47 L code = 4544-3) Lab Interpretation (test Abnormal code = 87613-8) [facility]2022-10-19 13:03:01 Test Item Value Reference Range Interpretation Comments POC sodium (test code = 140 mmol/L 769-108 3660-0) POC potassium (test code 3.9 mmol/L 3.5-5.0 = 6298-4) POC glucose (test code = 78 mg/dL 65-99 2339-0) POC creatinine (test 4.6 mg/dl 0.5-0.9 H Operato r Name: code = 44737-7) Marko kyle ID: [id number] POC hemoglobin (test 8.5 g/dL 12.0-16.0 L code = 718-7) POC hematocrit (test 25 % 37-47 L code = 4544-3) Lab Interpretation (test Abnormal code = 65106-8) [facility]2022-10-19 13:03:01 Test Item Value Reference Range Interpretation Comments POC sodium (test code = 140 mmol/L 008-324 5106-0) POC potassium (test code 3.9 mmol/L 3.5-5.0 = 6298-4) POC glucose (test code = 78 mg/dL 65-99 2339-0) POC creatinine (test 4.6 mg/dl 0.5-0.9 H Operato r Name: code = 37835-5) Marko kyle ID: [id number] POC hemoglobin (test 8.5 g/dL 12.0-16.0 L code = 718-7) POC hematocrit (test 25 % 37-47 L code = 4544-3) Lab Interpretation (test Abnormal code = 81615-6) [facility]2022-10-19 13:03:01 Test Item Value Reference Range Interpretation Comments POC sodium (test code = 140 mmol/L 131-872 7838-0) POC potassium (test code 3.9 mmol/L 3.5-5.0 = 6298-4) POC glucose (test code = 78 mg/dL 65-99 2339-0) POC creatinine (test 4.6 mg/dl 0.5-0.9 H Operato r Name: code = 56182-4) Marko kyle ID: [id number] POC hemoglobin (test 8.5 g/dL 12.0-16.0 L code = 718-7) POC hematocrit (test 25 % 37-47 L code = 4544-3) Lab Interpretation (test Abnormal code = 11956-4) [facility]2022-10-19 13:03:01 Test Item Value Reference Range Interpretation Comments POC sodium (test code = 140 mmol/L 381-951 0271-0) POC potassium (test code 3.9 mmol/L 3.5-5.0 = 6298-4) POC glucose (test code = 78 mg/dL 65-99 2339-0) POC creatinine (test 4.6 mg/dl 0.5-0.9 H Operato r Name: code = 86067-5) Marko kyle ID: [id number] POC hemoglobin (test 8.5 g/dL 12.0-16.0 L code = 718-7) POC hematocrit (test 25 % 37-47 L code = 4544-3) Lab Interpretation (test Abnormal code = 83783-7) [facility]2022-10-19 13:03:01 Test Item Value Reference Range Interpretation Comments POC sodium (test code = 140 mmol/L 683-649 4429-0) POC potassium (test code 3.9 mmol/L 3.5-5.0 = 6298-4) POC glucose (test code = 78 mg/dL 65-99 2339-0) POC creatinine (test 4.6 mg/dl 0.5-0.9 H Operato r Name: code = 45387-0) Marko kyle ID: [id number] POC hemoglobin (test 8.5 g/dL 12.0-16.0 L code = 718-7) POC hematocrit (test 25 % 37-47 L code = 4544-3) Lab Interpretation (test Abnormal code = 32201-3) [facility]2022-10-19 13:03:01 Test Item Value Reference Range Interpretation Comments POC sodium (test code = 140 mmol/L 097-972 0886-0) POC potassium (test code 3.9 mmol/L 3.5-5.0 = 6298-4) POC glucose (test code = 78 mg/dL 65-99 2339-0) POC creatinine (test 4.6 mg/dl 0.5-0.9 H Operato r Name: code = 48425-3) Marko kyle ID: [id number] POC hemoglobin (test 8.5 g/dL 12.0-16.0 L code = 718-7) POC hematocrit (test 25 % 37-47 L code = 4544-3) Lab Interpretation (test Abnormal code = 17787-3) [facility]2022-10-19 13:03:01 Test Item Value Reference Range Interpretation Comments POC sodium (test code = 140 mmol/L 420-869 2525-0) POC potassium (test code 3.9 mmol/L 3.5-5.0 = 6298-4) POC glucose (test code = 78 mg/dL 65-99 2339-0) POC creatinine (test 4.6 mg/dl 0.5-0.9 H Operato r Name: code = 83580-9) Marko kyle ID: [id number] POC hemoglobin (test 8.5 g/dL 12.0-16.0 L code = 718-7) POC hematocrit (test 25 % 37-47 L code = 4544-3) Lab Interpretation (test Abnormal code = 62405-0) [id number] 13:03:00 Test Item Value Reference Range Interpretation Comments Estimated GFR (test mL/min/1.73 m2 A Caterg ory Units code = 07080-0) Interpretati onG1 >=90 Normal or highG 2 60-89 Mildly decrease dG3a 45-59 Mildly to moderately decr tvnqzC5k 30-44 Moderatel y to severely decrea sedG4 15-29 Severely decreasedG5 <15 Kidney failureThe eGFR was calculated usin g the Chronic Kidney Disease Epidemiology Collaboration ( CKD-EPI) equation. Interpretation is based on recommendati ons of the [facility] Ins[facility] Disease Outcome s Quality Initiat hermes ([facility]) pub lished in 2013. Lab Interpretation Abnormal (test code = 62411-7) [facility] [id number] 13:03:00 Test Item Value Reference Range Interpretation Comments Estimated GFR (test 9 mL/min/1.73 m2 A Caterg ory Units code = 12721-0) Interpretati onG1 >=90 Normal or highG 2 60-89 Mildly decrease dG3a 45-59 Mildly to moderately decr tvaiwM6q 30-44 Moderatel y to severely decrea sedG4 15-29 Severely decreasedG5 <15 Kidney failureThe eGFR was calculated usin g the Chronic Kidney Disease Epidemiology Collaboration ( CKD-EPI) equation. Interpretation is based on recommendati ons of the [facility] Disease Outcome s Quality Initiat hermes ([facility]) pub lished in 2013. Lab Interpretation Abnormal (test code = 07385-5) [facility] [id number] 13:03:00 Test Item Value Reference Range Interpretation Comments Estimated GFR (test 9 mL/min/1.73 m2 A Caterg ory Units code = 08094-6) Interpretati onG1 >=90 Normal or highG 2 60-89 Mildly decrease dG3a 45-59 Mildly to moderately decr yukthT7l 30-44 Moderatel y to severely decrea sedG4 15-29 Severely decreasedG5 <15 Kidney failureThe eGFR was calculated usin g the Chronic Kidney Disease Epidemiology Collaboration ( CKD-EPI) equation. Interpretation is based on recommendati ons of the [facility] Disease Outcome s Quality Initiat hermes ([facility]) pub lished in 2013. Lab Interpretation Abnormal (test code = 81049-6) [facility] [id number] 13:03:00 Test Item Value Reference Range Interpretation Comments Estimated GFR (test 9 mL/min/1.73 m2 A Caterg ory Units code = 51037-0) Interpretati onG1 >=90 Normal or highG 2 60-89 Mildly decrease dG3a 45-59 Mildly to moderately decr dieytV6f 30-44 Moderatel y to severely decrea sedG4 15-29 Severely decreasedG5 <15 Kidney failureThe eGFR was calculated usin g the Chronic Kidney Disease Epidemiology Collaboration ( CKD-EPI) equation. Interpretation is based on recommendati ons of the [facility] Disease Outcome s Quality Initiat hermes ([facility]) pub lished in 2013. Lab Interpretation Abnormal (test code = 49162-3) [facility] [id number] 13:03:00 Test Item Value Reference Range Interpretation Comments Estimated GFR (test 9 mL/min/1.73 m2 A Caterg ory Units code = 24808-0) Interpretati onG1 >=90 Normal or highG 2 60-89 Mildly decrease dG3a 45-59 Mildly to moderately decr zhapnH2i 30-44 Moderatel y to severely decrea sedG4 15-29 Severely decreasedG5 <15 Kidney failureThe eGFR was calculated usin g the Chronic Kidney Disease Epidemiology Collaboration ( CKD-EPI) equation. Interpretation is based on recommendati ons of the [facility] Disease Outcome s Quality Initiat hermes ([facility]) pub lished in 2013. Lab Interpretation Abnormal (test code = 38822-9) [facility] [id number] 13:03:00 Test Item Value Reference Range Interpretation Comments Estimated GFR (test 9 mL/min/1.73 m2 A Caterg ory Units code = 39718-3) Interpretati onG1 >=90 Normal or highG 2 60-89 Mildly decrease dG3a 45-59 Mildly to moderately decr tftwlP9j 30-44 Moderatel y to severely decrea sedG4 15-29 Severely decreasedG5 <15 Kidney failureThe eGFR was calculated usin g the Chronic Kidney Disease Epidemiology Collaboration ( CKD-EPI) equation. Interpretation is based on recommendati ons of the [facility] Disease Outcome s Quality Initiat hermes ([facility]) pub lished in 2013. Lab Interpretation Abnormal (test code = 07968-1) [facility] [id number] 13:03:00 Test Item Value Reference Range Interpretation Comments Estimated GFR (test 9 mL/min/1.73 m2 A Caterg ory Units code = 44648-0) Interpretati onG1 >=90 Normal or highG 2 60-89 Mildly decrease dG3a 45-59 Mildly to moderately decr urfsvH0m 30-44 Moderatel y to severely decrea sedG4 15-29 Severely decreasedG5 <15 Kidney failureThe eGFR was calculated usin g the Chronic Kidney Disease Epidemiology Collaboration ( CKD-EPI) equation. Interpretation is based on recommendati ons of the [facility] Disease Outcome s Quality Initiat hermes ([facility]) pub lished in 2013. Lab Interpretation Abnormal (test code = 22237-8) [facility] [id number] 13:03:00 Test Item Value Reference Range Interpretation Comments Estimated GFR (test 9 mL/min/1.73 m2 A Caterg ory Units code = 69752-1) Interpretati onG1 >=90 Normal or highG 2 60-89 Mildly decrease dG3a 45-59 Mildly to moderately decr ikobcB3n 30-44 Moderatel y to severely decrea sedG4 15-29 Severely decreasedG5 <15 Kidney failureThe eGFR was calculated usin g the Chronic Kidney Disease Epidemiology Collaboration ( CKD-EPI) equation. Interpretation is based on recommendati ons of the [facility] Disease Outcome s Quality Initiat hermes ([facility]) pub lished in 2013. Lab Interpretation Abnormal (test code = 24822-2) [facility] [id number] 13:03:00 Test Item Value Reference Range Interpretation Comments Estimated GFR (test 9 mL/min/1.73 m2 A Caterg ory Units code = 91556-6) Interpretati onG1 >=90 Normal or highG 2 60-89 Mildly decrease dG3a 45-59 Mildly to moderately decr xntzwP3d 30-44 Moderatel y to severely decrea sedG4 15-29 Severely decreasedG5 <15 Kidney failureThe eGFR was calculated usin g the Chronic Kidney Disease Epidemiology Collaboration ( CKD-EPI) equation. Interpretation is based on recommendati ons of the [facility] Disease Outcome s Quality Initiat hermes ([facility]) pub lished in 2013. Lab Interpretation Abnormal (test code = 63630-2) [facility] [id number] 13:03:00 Test Item Value Reference Range Interpretation Comments Estimated GFR (test 9 mL/min/1.73 m2 A Caterg ory Units code = 35152-8) Interpretati onG1 >=90 Normal or highG 2 60-89 Mildly decrease dG3a 45-59 Mildly to moderately decr ipnzsZ2i 30-44 Moderate ly to severely decrea sedG4 15-29 Severely decreasedG5 <15 Kidney failureThe eGFR was calculated usin g the Chronic Kidney Disease Epidemiology Collaboration ( CKD-EPI) equation. Interpretation is based on recommendati ons of the [facility] Disease Outcome s Quality Initiat hermes ([facility]) pub lished in 2013. Lab Interpretation Abnormal (test code = 71728-5) [facility] [id number] 13:03:00 Test Item Value Reference Range Interpretation Comments Estimated GFR (test 9 mL/min/1.73 m2 A Caterg ory Units code = 26684-0) Interpretati onG1 >=90 Normal or highG 2 60-89 Mildly decrease dG3a 45-59 Mildly to moderately decr tikhdL9b 30-44 Moderatel y to severely decrea sedG4 15-29 Severely decreasedG5 <15 Kidney failureThe eGFR was calculated usin g the Chronic Kidney Disease Epidemiology Collaboration ( CKD-EPI) equation. Interpretation is based on recommendati ons of the [facility] Disease Outcome s Quality Initiat hermes ([facility]) pub lished in 2013. Lab Interpretation Abnormal (test code = 79996-3) [facility] [id number] 13:03:00 Test Item Value Reference Range Interpretation Comments Estimated GFR (test 9 mL/min/1.73 m2 A Caterg ory Units code = 67030-1) Interpretati onG1 >=90 Normal or highG 2 60-89 Mildly decrease dG3a 45-59 Mildly to moderately decr mjkmtG3x 30-44 Moderatel y to severely decrea sedG4 15-29 Severely decreasedG5 <15 Kidney failureThe eGFR was calculated usin g the Chronic Kidney Disease Epidemiology Collaboration ( CKD-EPI) equation. Interpretation is based on recommendati ons of the [facility] Disease Outcome s Quality Initiat hermes ([facility]) pub lished in 2013. Lab Interpretation Abnormal (test code = 90843-3) [facility] [id number] 13:03:00 Test Item Value Reference Range Interpretation Comments Estimated GFR (test 9 mL/min/1.73 m2 A Caterg ory Units code = 24616-2) Interpretati onG1 >=90 Normal or highG 2 60-89 Mildly decrease dG3a 45-59 Mildly to moderately decr mxfrcE6g 30-44 Moderatel y to severely decrea sedG4 15-29 Severely decreasedG5 <15 Kidney failureThe eGFR was calculated usin g the Chronic Kidney Disease Epidemiology Collaboration ( CKD-EPI) equation. Interpretation is based on recommendati ons of the [facility] Disease Outcome s Quality Initiat hermes ([facility]) pub lished in 2013. Lab Interpretation Abnormal (test code = 80927-8) [facility] [id number] 19:03:18 Test Item Value Reference Range Interpretation Comments Case number (test code = [id number]) Surgical pathology See link below for report (test code = PDF Lab Report 2259) Result status (test code This is Final Report = 5353744) [facility] [id number] [facility] [id number] 19:03:18 Test Item Value Reference Range Interpretation Comments Case number (test code = [id number]) Surgical pathology See link below for report (test code = PDF Lab Report 2255) Result status (test code This is Final Report = 5174527) for [id number] [facility] pathology [id number] 19:03:18 Test Item Value Reference Range Interpretation Comments Case number (test code = [id number]) Surgical pathology See link below for report (test code = PDF Lab Report 2255) Result status (test code This is Final Report = 9774250) for [id number] [facility] pathology [id number] 19:03:18 Test Item Value Reference Range Interpretation Comments Case number (test code = [id number]) Surgical pathology See link below for report (test code = PDF Lab Report 2255) Result status (test code This is Final Report = 5531132) for [id number] [facility] pathology [id number] 19:03:18 Test Item Value Reference Range Interpretation Comments Case number (test code = [id number]) Surgical pathology See link below for report (test code = PDF Lab Report 2255) Result status (test code This is Final Report = 2069528) for [id number] [facility] pathology [id number] 19:03:18 Test Item Value Reference Range Interpretation Comments Case number (test code = [id number]) Surgical pathology See link below for report (test code = PDF Lab Report 2255) Result status (test code This is Final Report = 2889496) for [id number] [facility] pathology [id number] 19:03:18 Test Item Value Reference Range Interpretation Comments Case number (test code = [id number]) Surgical pathology See link below for report (test code = PDF Lab Report 2255) Result status (test code This is Final Report = 9534707) for [id number] [facility] pathology [id number] 19:03:18 Test Item Value Reference Range Interpretation Comments Case number (test code = [id number]) Surgical pathology See link below for report (test code = PDF Lab Report 2255) Result status (test code This is Final Report = 4809021) for [id number] [facility] pathology [id number] 19:03:18 Test Item Value Reference Range Interpretation Comments Case number (test code = [id number]) Surgical pathology See link below for report (test code = PDF Lab Report 2255) Result status (test code This is Final Report = 9872965) for [id number] [facility] pathology [id number] 19:03:18 Test Item Value Reference Range Interpretation Comments Case number (test code = [id number]) Surgical pathology See link below for report (test code = PDF Lab Report 2255) Result status (test code This is Final Report = 8628607) for [id number] [facility] pathology [id number] 19:03:18 Test Item Value Reference Range Interpretation Comments Case number (test code = [id number]) Surgical pathology See link below for report (test code = PDF Lab Report 2255) Result status (test code This is Final Report = 8803461) for [id number] [facility] pathology [id number] 19:03:18 Test Item Value Reference Range Interpretation Comments Case number (test code = [id number]) Surgical pathology See link below for report (test code = PDF Lab Report 2255) Result status (test code This is Final Report = 4482387) for [id number] [facility] Pre/Post [id number] 10:49:53 Test Item Value Reference Range Interpretation Comments Ventricular rate (test code = 253) Atrial rate (test code = 255) OK interval (test code = 266) QRSD interval [...] in Inferior leads- [facility] Pre/Post [id number] 10:49:53 Test Item Value Reference Range Interpretation Comments Ventricular rate (test 101 code = 253) Atrial rate (test code 101 = 255) OK interval (test code 160 = 266) QRSD [...] in Inferior leads- [facility] Pre/Post [id number] 10:49:53 Test Item Value Reference Range Interpretation Comments Ventricular rate (test 101 code = 253) Atrial rate (test code 101 = 255) OK interval (test code 160 = 266) QRSD [...] in Inferior leads- [facility] Pre/Post [id number] 10:49:53 Test Item Value Reference Range Interpretation Comments Ventricular rate (test 101 code = 253) Atrial rate (test code 101 = 255) OK interval (test code 160 = 266) QRSD [...] in Inferior leads- [facility] Pre/Post [id number] 10:49:53 Test Item Value Reference Range Interpretation Comments Ventricular rate (test 101 code = 253) Atrial rate (test code 101 = 255) OK interval (test code 160 = 266) QRSD [...] in Inferior leads- [facility] Pre/Post [id number] 10:49:53 Test Item Value Reference Range Interpretation Comments Ventricular rate (test 101 code = 253) Atrial rate (test code 101 = 255) OK interval (test code 160 = 266) QRSD [...] in Inferior leads- [facility] Pre/Post [id number] 10:49:53 Test Item Value Reference Range Interpretation Comments Ventricular rate (test 101 code = 253) Atrial rate (test code 101 = 255) OK interval (test code 160 = 266) QRSD [...] in Inferior leads- [facility] Pre/Post [id number] 10:49:53 Test Item Value Reference Range Interpretation Comments Ventricular rate (test 101 code = 253) Atrial rate (test code 101 = 255) OK interval (test code 160 = 266) QRSD [...] in Inferior leads- [facility] Pre/Post [id number] 10:49:53 Test Item Value Reference Range Interpretation Comments Ventricular rate (test 101 code = 253) Atrial rate (test code 101 = 255) OK interval (test code 160 = 266) QRSD [...] in Inferior leads- [facility] Pre/Post [id number] 10:49:53 Test Item Value Reference Range Interpretation Comments Ventricular rate (test 101 code = 253) Atrial rate (test code 101 = 255) OK interval (test code 160 = 266) QRSD [...] inversion now evident in Inferior leads- [facility] GLUCOSE (AUTOMATED)2020-10-14 12:45:50 Test Item Value Reference Range Interpretation Comments POCT GLU (test code = 3641774275) 255 mg/dL 70-110 H Lab Interpretation (test code = Abnormal 75095-4) [facility] [id number] 12:35:00 Test Item Value Reference Range Interpretation Comments POCT Glu (age>30days) (test code = 255 mg/dL 70-110 A 3342) Lab Interpretation (test code = Abnormal 41593-4) [facility] [Presence] in Respiratory specimen by JUANY with probe [id number] 01:15:19 Test Item Value Reference Range Interpretation Comments SARS-CoV-2 (COVID-19) RNA Not detected Not-Detected [Presence] in Respiratory specimen by JUANY with probe detection (test code = 53500-3) [facility] [id number] 12:03:00 Test Item Value Reference Range Interpretation Comments POCT Glu (age>30days) (test code = 142 mg/dL 70-110 A 3342) Lab Interpretation (test code = Abnormal 23933-9) [facility] [Presence] in Respiratory specimen by JUANY with probe [id number] 18:03:16 Test Item Value Reference Range Interpretation Comments SARS-CoV-2 (COVID-19) RNA Not detected Not-Detected [Presence] in Respiratory specimen by JUANY with probe detection (test code = 31399-5) [facility]
--- NOTE | 2023-05-12 12:50 | RAD REPORT ---
EXAM DESCRIPTION: RAD - Chest Single View - 05/12/2023 12:33 pm CLINICAL HISTORY: DYSPNEA COMPARISON: <Comparisons> FINDINGS: Lines: Right IJ approach dialysis catheter with tip overlying the SVC . Lungs: Similar prominence of the pulmonary interstitium. Pleural: No significant pleural effusions or pneumothorax. Cardiac: Cardiomegaly. Mediastinum: Within normal limits. Bones: No acute fractures. Sternotomy. ACDF in the cervical spine. Other: None IMPRESSION: Similar prominence of the pulmonary interstitium likely reflecting mild congestive heart failure/fluid overload.
[2023-05-12 13:20] LABS: Absolute Lymphocytes (CBC) 0.2 K/uL (0.7-4.9); Hematocrit 28.3 % (36.0-45.0); Lymphocytes % 2.7 % (15.3-44.8); MCV 89.8 fL (80-100); MPV 7.8 fL (7.6-11.3); Platelets 107 thou/uL (152-406); RBC Red Blood Cell Count 3.15 M/uL (3.86-4.86)
[2023-05-12 13:28] LABS: Protime INR 1.16
[2023-05-12 13:53] LABS: Anisocytosis 1+; Blood Morphology Comment NOTED (NOT SEEN); Platelet Estimate DECR; White Blood Cell Scan OK (OK)
[2023-05-12 13:58] LABS: ALT/SGPT 13 U/L (13-56); AST/SGOT 24 U/L (15-37); Albumin 2.4 g/dL (3.4-5.0); Alkaline Phosphatase 63 U/L (45-117); BUN Blood Urea Nitrogen 43 mg/dL (7-18); Bicarbonate 22 mEq/L (21-32); Bilirubin Direct 0.5 mg/dL (0-0.2); Bilirubin Indirect, Calculated 0.3 mg/dL (0.2-0.8); Bilirubin Total 0.8 mg/dL (0.2-1.0); Glomerular Filtration Rate 11 ml/min (=/>90); Glucose Level 125 mg/dL (74-106); Magnesium 1.7 mg/dL (1.6-2.4); Potassium 3.7 mEq/L (3.5-5.1); Protein, Total 5.9 g/dL (6.4-8.2); Sodium Level 139 mEq/L (136-145)
[2023-05-12 14:04] LABS: NT PRO-BNP > 175000 pg/mL (<125)
[2023-05-12 14:08] LABS: Troponin High Sensitivity 102.4 pg/mL (<58.9)
--- NOTE | 2023-05-12 14:16 | EDPHYS ---
Physician Documentation [facility] Name: Meseret Gallego Age: 68 yrs Sex: Female : 1955 Arrival Date: 05/12/2023 Time: 11:36 Bed 16 Private MD: ED Physician Marcel Sykes HPI: 05/12 12:24 This 68 yrs old Female presents to ER via EMS with complaints of shortness of breath. rn 12:24 The patient has shortness of breath at rest, with light activity. Onset: The rn symptoms/episode began/occurred today. Duration: The symptoms are continuous. The patient's shortness of breath is aggravated by exertion, is alleviated by nothing. Severity of symptoms: At their worst the symptoms were moderate in the emergency department the symptoms have improved. The patient has experienced similar episodes in the past. Patient reports just discharged this morning from this hospital, was admitted for volume overload and required multiple sessions of dialysis. Discharged this morning and was feeling okay, not great. States when got home felt even worse shortness of breath, no chest pain. No fever. No productive cough. EMS states that she is more swollen currently than other times they have picked her up.. Historical: - Allergies: 12:07 Codeine; me1 12:07 Phenergan; me1 12:07 Tape; me1 - PMHx: 12:07 Diabetes - IDDM; Dialysis; Hypercholesterolemia; Myocardial infarction; Hypertension; me1 Hypothyroidism; - PSHx: 12:07 2 heart stents; back; section; Coronary artery bypass graft; knee; neck; me1 - Immunization history:: Adult Immunizations up to date. - Social history:: Smoking status: Patient/guardian denies using tobacco, but has a distant history of tobacco abuse. - Family history:: not pertinent. - Hospitalizations: : No recent hospitalization is reported. ROS: 12:24 Constitutional: Negative for fever, chills, and weight loss, Eyes: Negative for injury, rn pain, redness, and discharge, Cardiovascular: Negative for chest pain, palpitations, and edema, Respiratory: Positive for shortness of breath Abdomen/GI: Negative for abdominal pain, nausea, vomiting, diarrhea, and constipation, MS/Extremity: Positive for lower extremity edema Skin: Negative for injury, rash, and discoloration, Neuro: Positive for generalized weakness Exam: 12:24 Constitutional: This is a well developed, well nourished patient who is awake, alert, rn mild tachypnea Head/Face: Normocephalic, atraumatic. Cardiovascular: Regular rate and rhythm. No pulse deficits. Respiratory: Mild tachypnea with crackles bilaterally Abdomen/GI: Soft, nontender MS/ Extremity: 1+ pitting edema bilateral lower extremities with mild erythema Neuro: Awake and alert, GCS 15 Vital Signs: 11:58 BP 144 / 62; Pulse 95; Resp 14; Temp 98.2(O); Pulse Ox 97% on R/A; Weight 83.91 kg; me1 Height 5 ft. 6 in. ; Pain 0/10; 12:00 BP 145 / 77; Pulse 92; Resp 16; Pulse Ox 100% on R/A; me1 12:45 BP 118 / 83; Pulse 90; Resp 14; Pulse Ox 98% on 1.5 lpm NC; me1 13:15 BP 142 / 61; Pulse 92; Resp 16; Pulse Ox 96% on R/A; me1 14:00 BP 138 / 62; Pulse 92; Resp 20; Pulse Ox 98% on 1.5 lpm NC; me1 14:30 BP 140 / 72; Pulse 91; Resp 20; Pulse Ox 97% on 1.5 lpm NC; me1 15:00 BP 142 / 60; Pulse 92; Resp 20; Pulse Ox 97% on 1.5 lpm NC; me1 15:15 BP 146 / 58; Pulse 93; Resp 18; Pulse Ox 97% on 1.5 lpm NC; me1 11:58 Body Mass Index 29.86 (83.91 kg, 167.64 cm) me1 11:58 Pain Scale: Adult me1 MDM: 11:57 Patient medically screened. rn 14:13 Differential diagnosis: Myocardial Infarction Pneumothorax pulmonary edema. Data rn reviewed: vital signs, nurses notes, lab test result(s), EKG, radiologic studies, plain films, and as a result, I will admit patient. Consideration of Admission/Observation Patient was admitted/placed on observation. Escalation of care including admission/observation considered. Management of patient was discussed with the following: Hospitalist: Will admit patient. Independent interpretation of the following test(s) in the Emergency Department EKG: See my EKG interpretation above X-Ray: My interpretation is Chest x-ray images show pulmonary edema per my interpretation. Counseling: I had a detailed discussion with the patient and/or guardian regarding the historical points, exam findings, and any diagnostic results supporting the discharge/admit diagnosis, lab results, radiology results, the need for further work-up and treatment in the hospital. Response to treatment: There is no appreciated change of the patient's symptoms at this time, and as a result, I will admit patient. ED course: Patient still volume overloaded despite recent rounds of dialysis. BNP greater than 175,000, elevated troponin, chest x-ray still shows pulmonary edema. Will have to readmit to hospitalist service for further dialysis.. 05/12 11:57 Order name: BMP; Complete Time: 14:11 rn 05/12 11:57 Order name: Blood Culture Adult (2) rn 05/12 11:57 Order name: CBC with Diff; Complete Time: 14:11 rn 05/12 11:57 Order name: Hepatic Function; Complete Time: 14:11 rn 05/12 11:57 Order name: Magnesium; Complete Time: 14:11 rn 05/12 11:57 Order name: NT PRO-BNP; Complete Time: 14:11 rn 05/12 11:57 Order name: PT-INR; Complete Time: 13:44 rn 05/12 11:57 Order name: Ptt, Activated; Complete Time: 13:44 rn 05/12 11:57 Order name: Troponin HS; Complete Time: 14:11 rn 05/12 13:53 Order name: CBC Smear Scan; Complete Time: 14:11 EDMS 05/12 15:00 Order name: CBC with Automated Diff EDMS 05/12 15:00 Order name: CBC with Automated Diff EDMS 05/12 15:00 Order name: CBC with Automated Diff EDMS 05/12 15:00 Order name: CBC with Automated Diff EDMS 05/12 15:00 Order name: Magnesium EDMS 05/12 15:00 Order name: Magnesium EDMS 05/12 15:00 Order name: Magnesium EDMS 05/12 15:00 Order name: Magnesium EDMS 05/12 15:00 Order name: Phosphorus EDMS 05/12 15:00 Order name: Phosphorus EDMS 05/12 15:00 Order name: Phosphorus EDMS 05/12 15:00 Order name: Phosphorus EDMS 05/12 15:00 Order name: Troponin High Sensitivity EDMS 05/12 15:00 Order name: Troponin High Sensitivity EDMS 05/12 15:00 Order name: Troponin High Sensitivity EDMS 05/12 15:01 Order name: Phosphorus EDMS 05/12 15:06 Order name: Basic Metabolic Panel EDMS 05/12 15:06 Order name: Basic Metabolic Panel EDMS 05/12 15:06 Order name: Basic Metabolic Panel EDMS 05/12 15:06 Order name: Basic Metabolic Panel EDPR 05/12 11:57 Order name: XRAY CXR (1 view); Complete Time: 13:07 rn 05/12 11:57 Order name: EKG; Complete Time: 11:58 rn 05/12 15:00 Order name: CONS Physician Consult EDPR 05/12 11:57 Order name: Cardiac monitoring; Complete Time: 12:14 rn 05/12 11:57 Order name: EKG - Nurse/Tech; Complete Time: 14:23 rn 05/12 11:57 Order name: IV Saline Lock; Complete Time: 13:13 rn 05/12 11:57 Order name: Labs collected and sent; Complete Time: 13:13 rn 05/12 11:57 Order name: O2 Per Protocol; Complete Time: 12:14 rn 05/12 11:57 Order name: O2 Sat Monitoring; Complete Time: 12:14 rn Administered Medications: No medications were administered Disposition Summary: 05/12/23 14:16 Hospitalization Ordered Notes: Hospitalization Status: Inpatient Admission rn Provider: Sudhakar Mendosa rn [facility] rn Condition: Stable rn Problem: new rn Symptoms: have improved rn Bed/Room Type: Standard rn Room Assignment: 210(05/12/23 15:38) eb Diagnosis - Acute pulmonary edema rn - End stage renal disease rn - Dyspnea, unspecified rn Forms: - Medication Reconciliation Form rn - SBAR form rn - Leadership Thank You Letter rn Signatures: Dispatcher Marcel Choi MD MD rn Botello, Elizabeth eb Eddleman, Michelle, RN RN me1 Corrections: (The following items were deleted from the chart) 15:38 14:16 rn eb
--- NOTE | 2023-05-12 14:16 | ER ---
Nurse's Notes [facility] Name: Meseret Gallego Age: 68 yrs Sex: Female : 1955 Arrival Date: 05/12/2023 Time: 11:36 Bed 16 Private MD: Diagnosis: Acute pulmonary edema;End stage renal disease;Dyspnea, unspecified Presentation: 05/12 11:58 Chief complaint: EMS states: toned out for SOB. Patient was discharged today from this [facility] for a pulmonary embolism and "was feeling ok when she went home". o2 sat 97% on room air per EMS. s/p CABG 6 weeks ago- eduardo in midsternal incision. Rash under left breast. Hemodialysis patient MWF with [facility] dialysis access. Started eliquis this morning. Reports multiple diabetic ulcers. Coronavirus screen: Vaccine status: Patient reports receiving the 2nd dose of the covid vaccine. Ebola Screen: No symptoms or risks identified at this time. Initial Sepsis Screen: Does the patient meet any 2 criteria? HR > 90 bpm. No. Patient's initial sepsis screen is negative. Does the patient have a suspected source of infection? Yes: Skin breakdown/wound. Risk Assessment: Do you want to hurt yourself or someone else? Patient reports no desire to harm self or others. Onset of symptoms was May 12, 2023. 11:58 Method Of Arrival: EMS: [place] [id number] 11:58 Acuity: [facility] Triage Assessment: 12:07 General: Appears comfortable, well groomed, well developed, well nourished, Behavior is me1 cooperative, appropriate for age, anxious, restless. Pain: Denies pain. Neuro: Level of Consciousness is awake, alert, obeys commands, Oriented to person, place, time, situation, Appropriate for age. Cardiovascular: Capillary refill < 3 seconds Patient's skin is warm and dry. Respiratory: Airway is patent Respiratory effort is even, unlabored, Respiratory pattern is regular, symmetrical. GI: Abdomen is round. : Parent/caregiver report the patient having HD on MWF with dialysis access to [facility]. Derm: Rash noted that is red, raised, on under left breast. Historical: - Allergies: 12:07 Codeine; me1 12:07 Phenergan; me1 12:07 Tape; me1 - PMHx: 12:07 Diabetes - IDDM; Dialysis; Hypercholesterolemia; Myocardial infarction; Hypertension; me1 Hypothyroidism; - PSHx: 12:07 2 heart stents; back; section; Coronary artery bypass graft; knee; neck; me1 - Immunization history:: Adult Immunizations up to date. - Social history:: Smoking status: Patient/guardian denies using tobacco, but has a distant history of tobacco abuse. - Family history:: not pertinent. - Hospitalizations: : No recent hospitalization is reported. Screenin:51 [facility] ED Fall Risk Assessment (Adult) History of falling in the last 3 months, me1 including since admission No falls in past 3 months (0 pts) Confusion or Disorientation No (0 pts) Intoxicated or Sedated No (0 pts) Impaired Gait No (0 pts) Mobility Assist Device Used No (0 pt) Altered Elimination No (0 pt) Score/Fall Risk Level 0 - 2 = Low Risk. Abuse screen: Denies threats or abuse. Nutritional screening: No deficits noted. Tuberculosis screening: No symptoms or risk factors identified. Vital Signs: 11:58 BP 144 / 62; Pulse 95; Resp 14; Temp 98.2(O); Pulse Ox 97% on R/A; Weight 83.91 kg; me1 Height 5 ft. 6 in. ; Pain 0/10; 12:00 BP 145 / 77; Pulse 92; Resp 16; Pulse Ox 100% on R/A; me1 12:45 BP 118 / 83; Pulse 90; Resp 14; Pulse Ox 98% on 1.5 lpm NC; me1 13:15 BP 142 / 61; Pulse 92; Resp 16; Pulse Ox 96% on R/A; me1 14:00 BP 138 / 62; Pulse 92; Resp 20; Pulse Ox 98% on 1.5 lpm NC; me1 14:30 BP 140 / 72; Pulse 91; Resp 20; Pulse Ox 97% on 1.5 lpm NC; me1 15:00 BP 142 / 60; Pulse 92; Resp 20; Pulse Ox 97% on 1.5 lpm NC; me1 15:15 BP 146 / 58; Pulse 93; Resp 18; Pulse Ox 97% on 1.5 lpm NC; me1 11:58 Body Mass Index 29.86 (83.91 kg, 167.64 cm) ks1 11:58 Pain Scale: Adult [facility] ED Course: 11:54 Patient arrived in ED. iw 11:57 Marcel Sykes MD is Attending Physician. rn 11:58 Ashley Obrien, RN is Primary Nurse. me1 12:07 Triage completed. me1 12:07 Arm band placed on Patient placed in an exam room. EKG completed in triage. Results me1 shown to MD. 12:34 XRAY CXR (1 view) In Process Unspecified. EDMS 13:13 Inserted saline lock: 22 gauge in right forearm, using aseptic technique. me1 13:13 BMP Sent. me1 13:13 Blood Culture Adult (2) Sent. me1 13:13 CBC with Diff Sent. me1 13:13 Hepatic Function Sent. me1 13:13 Magnesium Sent. me1 13:13 NT PRO-BNP Sent. me1 13:13 PT-INR Sent. me1 13:13 Ptt, Activated Sent. me1 13:13 Troponin HS Sent. me1 14:14 Sudhakar Mendosa is Hospitalizing Provider. rn 15:51 Patient has correct armband on for positive identification. Bed in low position. Call ks1 light in reach. Side rails up X2. Provided Education on: POC. Verbalized understanding. . 15:51 No provider procedures requiring assistance completed. Patient admitted, IV remains in [facility]. Administered Medications: No medications were administered Medication: 15:54 VIS not applicable for this client. [facility] Outcome: 14:16 Decision to Hospitalize by Provider. rn 15:51 Admitted to Med/surg accompanied by tech, via stretcher, room 210. Patient taken to [facility] dialysis about 15:20. Will be taken to room 210 by dialysis nurse when complete., with oxygen, with chart, Report called to PERRI Pollard 15:51 Condition: stable 15:54 Patient left the ED. [facility] Signatures: Dispatcher [employer] Helga Kunz RN RN Marcel Sykes MD MD rn Eddleman, Michelle, PERRI RN [facility]
[2023-05-12] MEDS ORDERED: IPRATROPIUM BROM 0.5MG/2.5ML NEB PRN (15:01)
[2023-05-12] MEDS ORDERED: ALBUTEROL 2.5 MG/3 ML NEB SOL NEB PRN (15:01)
--- NOTE | 2023-05-12 15:27 | P.HP ---
Certification for Inpatient Patient admitted to: Observation With expected LOS: >2 Midnights Patient will require the following post-hospital care: Alf Practitioner: I am a practitioner with admitting privileges, knowledge of patient current condition, hospital course, and medical plan of care. Services: Services provided to patient in accordance with Admission requirements found in Title 42 Section 412.3 of the Code of Federal Regulations Patient History Date of Service: 05/12/23 Reason for admission: SOB History of Present Illness: Meseret Gallego is a 68 year old female with past medical history of ESRD (HD MWF), CAD status post CABG, HTN, DM2, acute on chronic CHF, diabetic neuropathy, hyperlipidemia, diabetic sores on the feet, and hypothyroidism presents to the ED with c/o SOB and swelling in her hands. Lab values improved but Chest xray continues to show "Similar prominence of the pulmonary interstitium likely r eflecting mild congestive heart failure/fluid overload". Consulted Bj who decided to dialyze today. She was previously dialyzed three days in a row and showed great improvement with her mental status. On examination, she is AAO x3, Edema to bilateral hands, lungs sound clear. Intial vitals Signs: BP 144 / 62; Pulse 95; Resp 14; Temp 98.2(O); Pulse Ox 97% on R/A. Meseret will be admitted to hospitalist service for further treatment including dialysis service and plans for discharge to a SNF. Of note: She was discharged at 6 am today on RA, vitals stable, lungs sound clear, able to position herself in the bed and with assistance arriving to her house this morning. She called the nurses station a few hours after discharge requesting help for SNF placement. She is unable to care for herself and her sister is not able to provide care either but does have on hold and [facility] that was meeting her at her house this morning. Allergies codeine Allergy (Intermediate, Verified 08/04/22 13:31) Itching promethazine [From Phenergan] Allergy (Intermediate, Verified 08/04/22 13:31) Itching adhesive tape Adverse Reaction (Verified 08/04/22 13:31) Itching/Hives/Rash Home Medications: Metoprolol Succinate [Toprol Xl*] 12.5 mg PO BID 6AM 6PM tab 12/14/22 Cyclobenzaprine [Flexeril*] 10 mg PO TID PRN #30 tab 09/16/22 Collagenase [Santyl Ointment*] 1 appl TOP DAILY #1 tube 10/26/22 Amlodipine [Norvasc*] 10 mg PO DAILY 01/28/23 Amino Acids/Protein Hydrolys [Prosource No Carb Liquid Pkt] 30 ml PO BID #60 packet 02/02/23 Hydrocodone 10/APAP 325 [[place] 10/325*] 1 tab PO Q6H PRN #30 tab 02/02/23 Silver Sulfadiazine Crm [Silvadene*] 1 appl TOP BID #1 jar 02/02/23 Albuterol Neb [Proventil 0.083% Neb Soln] 2.5 mg NEB [id number] PRN #120 amp 04/25/23 Ipratropium Neb [Atrovent*] 0.5 mg NEB [id number] PRN #120 amp 04/25/23 Loratadine [Claritin*] 10 mg PO DAILY PRN #30 tab 04/25/23 Mupirocin Oint [Bactroban 2% Ointment*] 1 appl TOP BID #1 tube 04/25/23 Nystatin Cream [Mycostatin 100MU/Gm Cream*] 1 appl TOP BID #1 tube 04/25/23 Atorvastatin Calcium 1 tab PO BEDTIME 05/09/23 Bupropion HCl [Wellbutrin] 1 tab PO BID 05/09/23 Furosemide 80 mg PO DAILY 05/09/23 Insulin Lispro [Humalog] 50 unit SQ BID 05/09/23 Levothyroxine Sodium [Synthroid] 150 mcg PO DAILY 05/09/23 Pantoprazole Sodium [Protonix] 40 mg PO DAILY 05/09/23 Sucralfate [Carafate] 1 gm PO BID 05/09/23 Apixaban [Eliquis] 2.5 mg PO BID 30 Days #60 tablet 05/11/23 Clopidogrel Bisulfate [Plavix] 75 mg PO DAILY 30 Days #30 tab 05/11/23 - Past Medical/Surgical History Diabetic: Yes -: IDDM -: Hypertension -: Hypothyroidism -: ESRD HD MWF -: hyperlipidemia -: depression -: Paralyzed Stomach -: Neuropathy -: CAD -: Back fusion -: bilateral total knee replacements -: bilateral carpal tunnel sx -: c section -: thyroidectomy -: neck fusion -: PD Cath then removed -: Cholecystectomy Psychosocial/ Personal History: Patient lives at [facility]. - Family History Mother -: Heart disease, Hypertension, Lung disease, Cancer Notes: breast ca Father -: Heart disease, Hypertension, Other (see notes) Notes: Alzheimer's - Social History Alcohol use: No CD- Drugs: No Caffeine use: Yes Review of Systems Respiratory: Shortness of Breath Physical Examination - Physical Exam General: Alert, In no apparent distress, Oriented x3 HEENT: Atraumatic, Normocephalic, PERRLA Neck: Supple, 2+ carotid pulse no bruit, JVD not distended Respiratory: Clear to auscultation bilaterally, Normal air movement Cardiovascular: Edema (bilateral hands) Capillary refill: <2 Seconds Gastrointestinal: Normal bowel sounds, Soft and benign Musculoskeletal: No clubbing, Swelling (bilateral hands) Integumentary: Other (Skin Skin breakdown (left calf, bilateral feet, right forearm), Erythema, Diabetic ulcer (bilateral feet) ) Neurological: Normal speech, Normal strength at 5/5 x4 extr, Normal tone - Studies Laboratory Data (last 24 hrs) 05/12/23 05/12/23 05/12/23 13:04 13:04 13:04 WBC 6.80 Hgb 9.2 L Hct 28.3 L Plt Count 107 L PT 12.8 H INR 1.16 APTT 30.5 Sodium 139 Potassium 3.7 BUN 43 H Creatinine 4.35 H Glucose 125 H Magnesium 1.7 Total Bilirubin 0.8 AST 24 ALT 13 Alkaline Phosphatase 63 Assessment and Plan - Plan Assessment and Plan ESRD Pulmonary Edema Fluid volume overload BUN/Creatinine 43/4.35, GFR 11 BNP >175,000 K 3.7, Phos 5.2, CO2 [address] Flores Dialysis today Elveated Troponin Troponin 104, trending Full code DVT pxx: eliquis LOS 2-3 days- discharge to SNF Discharge Plan: Senior Living - Advance Directives Does patient have a Living Will: No Does patient have a Durable POA for Healthcare: No Time Spent Managing Pts Care (In Minutes): 55
[2023-05-12 20:26] VITALS: BMI 29.0
[2023-05-12] MEDS: SILVER SULFADIAZINE 1% 50 GM TOP SCH (21:00)
[2023-05-12] MEDS: NYSTATIN 100MU/GM CREAM 15GM TOP SCH (21:00)
[2023-05-12] MEDS: Bupropion Hcl [Wellbutrin] 75 MG Tablet PO SCH (21:00)
[2023-05-12] MEDS: MUPIROCIN 2% OINT 22GM TUBE TOP SCH (21:00)
[2023-05-12] MEDS: ATORVASTATIN 40 MG TAB PO SCH (22:38)
[2023-05-12] MEDS: APIXABAN 2.5 MG TABLET PO SCH (22:38)
[2023-05-12] MEDS: METOPROLOL XL 25 MG TAB PO SCH (22:38)
[2023-05-12] MEDS: AMINO ACIDS/PROTEIN HYDROLYS 30 ML LIQUID.PKT PO SCH (22:39)
--- NOTE | 2023-05-12 23:38 | PN ---
Date of Progress Note: 05/12/2023 Subjective: This patient was discharged from the hospital. Yesterday, the patient came with shortness of breath, difficulty breathing. The patient did not attend her dialysis today. Physical Examination: Vital Signs: Blood pressure of 146/58, pulse of 93, afebrile. Chest: Crackles bilateral. Heart: S1, S2 systolic murmur. Abdomen: Soft, nontender. Extremities: +2 edema. Dressing on both feet. Neurologic: Alert. No focality. Laboratory Data: Hemoglobin 9.2, sodium 139, potassium 3.7, bicarb 22, BUN 43, creatinine 4.3, calcium 7.8, phosphorus 5.2. Troponin 102. BNP more than 175,000. Current Medications: The patient on include: 1. Nystatin. 2. Loratadine. 3. Eliquis. 4. Amlodipine 10 mg. 5. Metoprolol 12.5. 6. Pantoprazole. 7. Naprosyn. Assessment And Plan: 1. End-stage renal disease, over volume. I am going to go ahead and arrange for dialysis today. We will challenge the patient. 2. Hypertension. We will utilize blood pressure for more ultrafiltration. 3. Anemia of chronic kidney disease. Resume XENIA. 4. Congestive heart failure with exacerbation. We will continue current ultrafiltration with dialysis. We will follow up the patient. 5. Diabetes as by primary. 6. Deconditioning. Continue PT, OT. time spend exam the patient face to face , reviewing data lab and radiology , placing order discussing with the family , Nursing staff and hospitalist >35 min CR Voice ID: [id number] Report ID: [id number] ASHOK
[2023-05-13 03:18] LABS: Absolute Lymphocytes (CBC) 0.3 K/uL (0.7-4.9); Hematocrit 29.5 % (36.0-45.0); Lymphocytes % 5.5 % (15.3-44.8); MCV 89.4 fL (80-100); MPV 7.7 fL (7.6-11.3); Platelets 124 thou/uL (152-406)
[2023-05-13 03:31] LABS: Phosphorus 4.2 mg/dL (2.5-4.9); Potassium 3.4 mEq/L (3.5-5.1)
[2023-05-13] MEDS: METOPROLOL XL 25 MG TAB PO SCH ×2 (05:50→17:29)
[2023-05-13] MEDS: NYSTATIN 100MU/GM CREAM 15GM TOP SCH ×2 (09:00→20:04)
[2023-05-13] MEDS: MUPIROCIN 2% OINT 22GM TUBE TOP SCH ×2 (09:00→20:03)
[2023-05-13] MEDS: AMINO ACIDS/PROTEIN HYDROLYS 30 ML LIQUID.PKT PO SCH ×2 (09:00→20:09)
[2023-05-13] MEDS: SILVER SULFADIAZINE 1% 50 GM TOP SCH ×2 (09:00→20:04)
[2023-05-13] MEDS: COLLAGENASE 30 GM OINTMENT TOP SCH (09:00)
[2023-05-13] MEDS: Bupropion Hcl [Wellbutrin] 75 MG Tablet PO SCH ×2 (09:00→20:07)
[2023-05-13] MEDS: CLOPIDOGREL 75 MG TABLET PO SCH (09:03)
[2023-05-13] MEDS: LEVOTHYROXINE SOD 0.075 MG TAB PO SCH (09:03)
[2023-05-13] MEDS: APIXABAN 2.5 MG TABLET PO SCH ×2 (09:04→20:09)
[2023-05-13] MEDS: AMLODIPINE 5 MG TAB PO SCH (09:04)
[2023-05-13] MEDS: PANTOPRAZOLE 40MG TABLET PO SCH (09:04)
--- NOTE | 2023-05-13 09:45 | P.PN ---
Subjective Date of Service: 05/13/23 Chief Complaint: SOB Subjective: No new changes HPI 05/12: Meseret Gallego is a 68 year old female with past medical history of ESRD (HD MWF), CAD status post CABG, HTN, DM2, acute on chronic CHF, diabetic neuropathy, hyperlipidemia, diabetic sores on the feet, and hypothyroidism presents to the ED with c/o SOB and swelling in her hands. Lab values improved but Chest xray continues to show "Similar prominence of the pulmonary interstitium likely reflecting mild congestive heart failure/fluid overload". Consulted Roge who decided to dialyze today. She was previously dialyzed three days in a row and showed great improvement with her mental status. On examination, she is AAO x3, Edema to bilateral hands, lungs sound clear. Intial vitals Signs: BP 144 / 62; Pulse 95; Resp 14; Temp 98.2(O); Pulse Ox 97% on R/A. Meseret will be admitted to hospitalist service for further treatment including dialysis service and plans for discharge to a SNF. Of note: She was discharged at 6 am today on RA, vitals stable, lungs sound clear, able to position herself in the bed and with assistance arriving to her house this morning. She called the nurses station a few hours after discharge requesting help for SNF placement. She is unable to care for herself and her sister is not able to provide care either but does have on hold and [facility] that was meeting her at her house this morning. 05/13: Mesreet is in good spirits this morning, she reports expecting to go to dialysis today. This will be the fifth dialysis consecutively and she is improving each day. Labs are much better than previous admission. We will arrange placement before discharge and follow Dr. Flores's recommendations. Review of Systems 10-point ROS is otherwise unremarkable Physical Examination - Vital Signs Temperature: 97.9 F Blood Pressure: 142/85 Pulse: 88 Respirations: 17 Pulse Ox (%): 98 - Studies Laboratory Data (last 24 hrs) 05/12/23 05/12/23 05/12/23 13:04 13:04 13:04 WBC 6.80 Hgb 9.2 L Hct 28.3 L Plt Count 107 L PT 12.8 H INR 1.16 APTT 30.5 Sodium Potassium BUN Creatinine Glucose Phosphorus 5.2 H Magnesium Total Bilirubin AST ALT Alkaline Phosphatase 05/12/23 13:04 WBC Hgb Hct Plt Count PT INR APTT Sodium 139 Potassium 3.7 BUN 43 H Creatinine 4.35 H Glucose 125 H Phosphorus Magnesium 1.7 Total Bilirubin 0.8 AST 24 ALT 13 Alkaline Phosphatase 63 Assessment And Plan - Plan Assessment and Plan ESRD Pulmonary Edema Fluid volume overload BUN/Creatinine 29/3.47, GFR 14 BNP >175,000 initial K 3.4, Phos 4.2, CO2 25 Dr. Flores managing Dialysis today Elveated Troponin Troponin 104, 82.7/88.1 multiple wounds/eduardo to inferior sternal incision Wound care [place] to be removed by cardiac surgeon at follow up visit Full code DVT pxx: eliquis LOS 2-3 days- discharge to SNF Discharge Plan: Residential Plan to discharge in: 72 Hours Time Spent Managing PTS Care (In Minutes): 35
--- NOTE | 2023-05-13 13:45 | PN ---
Date of Progress Note: 05/13/2023 Subjective: The patient was admitted with over volume respiratory distress. The patient is status post dialysis yesterday, tolerated the dialysis. Physical Examination: Vital Signs: Blood pressure 136/63, pulse of 89, afebrile. Chest: Crackles bilateral base. Heart: S1, S2 regular. Abdomen: Soft, nontender. Extremities: Plus edema. MTA and finger amputation. Neurologic: Alert. No focality. Laboratory Data: Hemoglobin 9.8, sodium 137, potassium 3.4, bicarb 25, BUN 29, creatinine 3.4, calcium 8.6, phosphorus 4.2, magnesium of 2. Current Medications: The patient on include: 1. Albuterol. 2. Loratadine. 3. Eliquis. 4. Plavix. 5. Epogen. 6. Metoprolol 12.5. 7. Atorvastatin. 8. Amlodipine 10. 9. Levothyroxine. 10. Bupropion. Assessment And Plan: 1. End-stage renal disease, over volume. I am going to continue the patient on her dialysis. The patient is status post dialysis yesterday. We will arrange for dialysis tomorrow to back to her schedule and we will follow up. 2. Hypertension. Continue to utilize blood pressure for more ultrafiltration. 3. Anemia of chronic kidney disease. Continue XENIA. 4. Secondary hyperparathyroid, stable. 5. Over volume status post dialysis. Continue to challenge the patient. time spend exam the patient face to face , reviewing data lab and radiology , placing order discussing with the family , Nursing staff and hospitalist >35 min CR Voice ID: [id number] Report ID: [id number] ASHOK
[2023-05-13] MEDS: ATORVASTATIN 40 MG TAB PO SCH (20:09)
[2023-05-14 03:05] LABS: Absolute Lymphocytes (CBC) 0.4 K/uL (0.7-4.9); Hematocrit 27.1 % (36.0-45.0); Lymphocytes % 6.4 % (15.3-44.8); MCV 89.6 fL (80-100); MPV 7.8 fL (7.6-11.3); Platelets 108 thou/uL (152-406); RBC Red Blood Cell Count 3.02 M/uL (3.86-4.86)
[2023-05-14 03:19] LABS: Phosphorus 4.6 mg/dL (2.5-4.9); Potassium 3.4 mEq/L (3.5-5.1)
[2023-05-14] MEDS: METOPROLOL XL 25 MG TAB PO SCH ×2 (05:25→17:27)
[2023-05-14] MEDS: AMLODIPINE 5 MG TAB PO SCH (08:32)
[2023-05-14] MEDS: Bupropion Hcl [Wellbutrin] 75 MG Tablet PO SCH ×2 (08:33→21:00)
[2023-05-14] MEDS: MUPIROCIN 2% OINT 22GM TUBE TOP SCH ×2 (08:33→21:00)
[2023-05-14] MEDS: CLOPIDOGREL 75 MG TABLET PO SCH (08:33)
[2023-05-14] MEDS: LEVOTHYROXINE SOD 0.075 MG TAB PO SCH (08:33)
[2023-05-14] MEDS: APIXABAN 2.5 MG TABLET PO SCH ×2 (08:33→21:34)
[2023-05-14] MEDS: PANTOPRAZOLE 40MG TABLET PO SCH (08:33)
[2023-05-14] MEDS: AMINO ACIDS/PROTEIN HYDROLYS 30 ML LIQUID.PKT PO SCH ×2 (08:34→21:00)
[2023-05-14] MEDS: COLLAGENASE 30 GM OINTMENT TOP SCH (08:41)
[2023-05-14] MEDS: NYSTATIN 100MU/GM CREAM 15GM TOP SCH ×2 (09:00→21:00)
[2023-05-14] MEDS: SILVER SULFADIAZINE 1% 50 GM TOP SCH ×2 (09:00→21:00)
[2023-05-14] MEDS: EPOETIN ALFA 10,000 UNIT/ML VIAL IV SCH (13:30)
--- NOTE | 2023-05-14 17:09 | P.PN ---
Subjective Date of Service: 05/14/23 Chief Complaint: SOB Subjective: Doing well HPI 05/12: Meseret Gallego is a 68 year old female with past medical history of ESRD (HD MWF), CAD status post CABG, HTN, DM2, acute on chronic CHF, diabetic neuropathy, hyperlipidemia, diabetic sores on the feet, and hypothyroidism presents to the ED with c/o SOB and swelling in her hands. Lab values improved but Chest xray continues to show "Similar prominence of the pulmonary interstitium likely reflecting mild congestive heart failure/fluid overload". Consulted Roge who decided to dialyze today. She was previously dialyzed three days in a row and showed great improvement with her mental status. On examination, she is AAO x3, Edema to bilateral hands, lungs sound clear. Intial vitals Signs: BP 144 / 62; Pulse 95; Resp 14; Temp 98.2(O); Pulse Ox 97% on R/A. Meseret will be admitted to hospitalist service for further treatment including dialysis service and plans for discharge to a SNF. Of note: She was discharged at 6 am today on RA, vitals stable, lungs sound clear, able to position herself in the bed and with assistance arriving to her house this morning. She called the nurses station a few hours after discharge requesting help for SNF placement. She is unable to care for herself and her sister is not able to provide care either but does have on hold and [facility] that was meeting her at her house this morning. 05/13: Meseret is in good spirits this morning, she reports expecting to go to dialysis today. This will be the fifth dialysis consecutively and she is improving each day. Labs are much better than previous admission. We will arrange placement before discharge and follow Dr. Flores's recommendations. 05/14: Meseret tolerated dialysis today, she is anxious at times thinking about discharging, we have submitted for SNF accommodations. Will keep her informed of this progress. <Caitlin Carbajal - Last Filed: 05/14/23 17:11> Date of Service: 05/14/23 <haydee smith - Last Filed: 05/14/23 18:44> Physical Examination - Vital Signs Temperature: 97.9 F Blood Pressure: 130/64 Pulse: 81 Respirations: 17 Pulse Ox (%): 90 <Caitlin Carbajal - Last Filed: 05/14/23 17:11> Assessment And Plan - Plan Assessment and Plan ESRD Pulmonary Edema Fluid volume overload BUN/Creatinine 35/3.98, GFR 12 BNP >175,000 initial K 3.4, Phos 4.6, CO2 25 Dr. Flores managing Dialysis today Elveated Troponin Troponin 104, 82.7/88.1 Clot in Right Jugular vein Above dialysis port eliquis multiple wounds/eduardo to inferior sternal incision s/p CABG Wound care Eduardo to be removed by cardiac surgeon at follow up visit Full code DVT pxx: eliquis LOS 2-3 days- discharge to SNF Discharge Plan: Correction Plan to discharge in: 48 Hours Time Spent Managing PTS Care (In Minutes): 35 <Caitlin Carbajal - Last Filed: 05/14/23 17:11> - Plan Patient was complaining of shortness of breath this morning. Status post hemodialysis today. She appears stable. Further hemodialysis per nephrology. PT Disposition to skilled rehab. <haydee smith - Last Filed: 05/14/23 18:44>
[2023-05-14] MEDS: ATORVASTATIN 40 MG TAB PO SCH (21:34)
--- NOTE | 2023-05-14 23:42 | PN ---
Date of Progress Note: 05/14/2023 Chief Complaint: End-stage renal disease, congestive heart failure exacerbation, fluid overload. Subjective: The patient was undergoing dialysis with daily treatment during this hospitalization to control fluid overload to provide management for congestive heart failure. The patient is feeling be tter. Review of Systems: Denies chest pain, palpitation. Physical Examination: Lungs: Clear to auscultation bilaterally. Heart: S1, S2. Abdomen: Soft. Extremities: Slight edema. Impression And Plan: 1.End-stage renal disease, volume overload. The patient will continue ultrafiltration with dialysis . Continue p.o. fluid restriction, low-sodium diet. Monitor fluid balance. 2.Hypertension. Continue blood pressure medication. Continue to advance ultrafiltration for volume control and blood pressure control. Monitor blood pressure closely during dialysis to prevent intra dialytic hypotension and titrate ultrafiltration according to blood pressure during dialysis. 3.Anemia due to chronic kidney disease. Continue XENIA. 4.Secondary hyperparathyroidism, stable. Monitor phosphorus level. Continue binders and low phosph orus diet. EB/MODL Voice ID: [id number] Report ID: [id number]
[2023-05-15 04:24] LABS: Absolute Lymphocytes (CBC) 0.4 K/uL (0.7-4.9); Hematocrit 27.3 % (36.0-45.0); Lymphocytes % 5.4 % (15.3-44.8); MCV 89.9 fL (80-100); Platelets 118 thou/uL (152-406); RBC Red Blood Cell Count 3.04 M/uL (3.86-4.86)
[2023-05-15 04:32] LABS: Magnesium 1.7 mg/dL (1.6-2.4); Phosphorus 3.3 mg/dL (2.5-4.9); Potassium 3.4 mEq/L (3.5-5.1)
[2023-05-15] MEDS: METOPROLOL XL 25 MG TAB PO SCH ×2 (05:15→17:58)
[2023-05-15] MEDS: NYSTATIN 100MU/GM CREAM 15GM TOP SCH ×2 (09:00→21:00)
[2023-05-15] MEDS: LEVOTHYROXINE SOD 0.075 MG TAB PO SCH (09:00)
[2023-05-15] MEDS: SILVER SULFADIAZINE 1% 50 GM TOP SCH ×2 (09:00→21:00)
[2023-05-15] MEDS: MUPIROCIN 2% OINT 22GM TUBE TOP SCH ×2 (09:00→21:00)
[2023-05-15] MEDS: Bupropion Hcl [Wellbutrin] 75 MG Tablet PO SCH ×2 (09:00→21:00)
[2023-05-15] MEDS: PANTOPRAZOLE 40MG TABLET PO SCH (09:00)
[2023-05-15] MEDS ORDERED: POTASSIUM CL SA 10 MEQ TAB PO ONE (09:00)
[2023-05-15] MEDS: APIXABAN 2.5 MG TABLET PO SCH ×2 (09:53→21:35)
[2023-05-15] MEDS: AMINO ACIDS/PROTEIN HYDROLYS 30 ML LIQUID.PKT PO SCH ×2 (09:53→21:00)
[2023-05-15] MEDS: CLOPIDOGREL 75 MG TABLET PO SCH (09:53)
[2023-05-15] MEDS: LORATADINE 10 MG TAB PO PRN (09:54)
[2023-05-15] MEDS: AMLODIPINE 5 MG TAB PO SCH (09:54)
[2023-05-15] MEDS: COLLAGENASE 30 GM OINTMENT TOP SCH (09:55)
[2023-05-15] MEDS ORDERED: MAGNESIUM SULFATE 1 gm IVPB 1 GM/100 ML BAG IV ONE (10:00)
--- NOTE | 2023-05-15 10:02 | P.PN ---
Date of Service: 05/15/23 Subjective: Doing well today, no complaints ROS: 10 point ROS as noted above, otherwise negative Physical exam GEN: Alert, oriented, NAD HEENT: Normal conjunctiva, sclera anicteric CV: Regular rate and rhythm, no edema Pulm: Nonlabored respirations on room air ABD: Soft, nontender, nondistended MSK: No joint tenderness Integumentary: No rashes Neuro: Normal speech, normal affect Vitals reviewed Problem List ESRD Pulmonary Edema Fluid volume overload Nephrology consulted/managing Dialysis last few days straight Improving Awaiting possible placement at SNF Looking at [facility] Troponin Troponin 104, 82.7/88.1, Downtrending No chest pain likely demand ischemia/decreased renal clearance Clot in Right Jugular vein Above dialysis port Continue Eliquis multiple wounds/eduardo to inferior sternal incision s/p CABG Wound care [place] to be removed by cardiac surgeon at follow up visit VTE: Continue Eliquis Code: Full Dispo: Likely SNF Time Spent Managing Pts Care (In Minutes): 35
--- NOTE | 2023-05-15 12:24 | PN ---
Date of Progress Note: 05/15/2023 Subjective: Patient was admitted to the hospital with overvolume. Patient is being dialyzed daily. She received dialysis yesterday, tolerated, managed to remove 2.5 L. Patient is still complaining of shortness of breath. Physical Examination: Vital Signs: When I saw the patient, blood pressure 145/65, pulse of 80, afebrile. Chest: Faint rales bilateral. Heart: S1, S2. Systolic murmur. Abdomen: Soft, nontender. Extremities: Plus edema multiple wound with dressing on the left foot. Neuro: Alert and oriented x3. Nonfocal. Laboratory Data: Hemoglobin 8.9. Sodium 139, potassium 3.4, bicarb 25, BUN 36, creatinine 3.4, calcium 8.4. Phosphorus 3.3, magnesium 1.7. Current Medications: The patient is on include: 1. Epogen. 2. Plavix. 3. Eliquis. 4. Metoprolol 12.5. 5. Atorvastatin. 6. Amlodipine 10 mg. 7. Levothyroxine. Assessment And Plan: 1. End-stage renal disease, overvolume. I am going to continue the patient on daily dialysis. Patient is going to be dialyzed today and we will dialyze tomorrow too and we will monitor. 2. Hypokalemia. Patient is going to be dialyzed on high potassium bath. 3. Anemia of chronic kidney disease. Continue XENIA. 4. Hypertension. Decrease amlodipine to 5 mg to allow better blood pressure for more ultrafiltration. 5. Overvolume. Patient is going to be dialyzed again today. 6. Hyperkalemia, resolved. 7. Hyponatremia, dilutional. We will follow up, to be corrected with dialysis. time spend exam the patient face to face , reviewing data lab and radiology , placing order discussing with the family , Nursing staff and hospitalist >35 min CR Voice ID: [id number] Report ID: [id number] MTDD
[2023-05-15] MEDS: EPOETIN ALFA 10,000 UNIT/ML VIAL IV SCH (17:30)
[2023-05-15] MEDS: ATORVASTATIN 40 MG TAB PO SCH (21:35)
[2023-05-16 03:59] LABS: Potassium 3.5 mEq/L (3.5-5.1)
[2023-05-16 06:30] LABS: Magnesium 1.7 mg/dL (1.6-2.4)
[2023-05-16] MEDS: METOPROLOL XL 25 MG TAB PO SCH ×2 (07:11→17:20)
[2023-05-16] MEDS: NYSTATIN 100MU/GM CREAM 15GM TOP SCH (09:00)
[2023-05-16] MEDS: AMLODIPINE 5 MG TAB PO SCH (09:00)
[2023-05-16] MEDS ORDERED: MAGNESIUM SULFATE 1 gm IVPB 1 GM/100 ML BAG IV ONE (09:00)
[2023-05-16] MEDS: COLLAGENASE 30 GM OINTMENT TOP SCH (09:00)
[2023-05-16] MEDS ORDERED: POTASSIUM CL SA 10 MEQ TAB PO ONE (09:00)
[2023-05-16] MEDS: MUPIROCIN 2% OINT 22GM TUBE TOP SCH ×2 (09:00→20:42)
[2023-05-16] MEDS: SILVER SULFADIAZINE 1% 50 GM TOP SCH ×2 (09:00→20:43)
[2023-05-16] MEDS: AMINO ACIDS/PROTEIN HYDROLYS 30 ML LIQUID.PKT PO SCH ×2 (09:00→19:57)
[2023-05-16] MEDS: Bupropion Hcl [Wellbutrin] 75 MG Tablet PO SCH ×2 (09:00→20:42)
[2023-05-16] MEDS: PANTOPRAZOLE 40MG TABLET PO SCH (09:52)
[2023-05-16] MEDS: CLOPIDOGREL 75 MG TABLET PO SCH (09:52)
[2023-05-16] MEDS: LEVOTHYROXINE SOD 0.075 MG TAB PO SCH (09:52)
[2023-05-16] MEDS: LORATADINE 10 MG TAB PO PRN (09:53)
[2023-05-16] MEDS: APIXABAN 2.5 MG TABLET PO SCH ×2 (09:53→20:46)
--- NOTE | 2023-05-16 10:48 | P.PN ---
Date of Service: 05/16/23 Subjective: Doing well today, no complaints ROS: 10 point ROS as noted above, otherwise negative Physical exam GEN: Alert, oriented, NAD HEENT: Normal conjunctiva, sclera anicteric CV: Regular rate and rhythm, no edema Pulm: Nonlabored respirations on room air ABD: Soft, nontender, nondistended MSK: No joint tenderness Integumentary: No rashes Neuro: Normal speech, normal affect Vitals reviewed Problem List ESRD Pulmonary Edema Fluid volume overload Nephrology consulted/managing Dialysis last few days straight, again today then switch to MWF Improving Awaiting possible placement at SNF Looking at [facility] Troponin Troponin 104, 82.7/88.1, Downtrending No chest pain likely demand ischemia/decreased renal clearance Clot in Right Jugular vein Above dialysis port Continue Eliquis multiple wounds/eduardo to inferior sternal incision s/p CABG Wound care Will remove eduardo as patient unable to FU with in [place] VTE: Continue Eliquis Code: Full Dispo: Likely SNF Time Spent Managing Pts Care (In Minutes): 35
--- NOTE | 2023-05-16 12:31 | PN ---
Date of Progress Note: 05/16/2023 Subjective: The patient was admitted to the hospital with overvolume. The patient has been dialyzed on a daily basis on the last 3 days, tolerating the dialysis. Yesterday, we managed to remove 2.5 L . Patient feeling better. The patient currently on nasal cannula 2.5 L. Objective: Vital Signs: Blood pressure 170/76, pulse of 88, afebrile. Yesterday after dialysis, bl ood pressure down to 127. Chest: Faint rales in the base. Heart: S1, S2. Regular. Abdomen: Soft, nontender. Extremities: Finger amputation, MTA. Multiple ulcer and the dressing on the left foot. Neurologic: Alert. No focality. Laboratory Data: Hemoglobin 8.9. Sodium 140, potassium 3.5, bicarb 27, BUN 23, creatinine 3, calciu m 8.2, magnesium 1.7. Current Medications: The patient on, it includes: 1.Nystatin. 2.Loratadine. 3.Plavix. 4.Eliquis. 5.Epogen. 6.Atorvastatin. 7.Amlodipine 5 mg. 8.Metoprolol 12.5. 9.Magnesium oxide. Assessment And Plan: 1.End-stage renal disease. We will continue the patient from now on on dialysis 3 times a week, Sun, Sunday, Sunday. 2.Hypertension, controlled. We will utilize the blood pressure for more ultrafiltration. Continue current medication. We had decreased amlodipine yesterday. 3.Overvolume, currently normal volume, back to her schedule. 4.Secondary hyperparathyroidism, stable. 5.Deconditioning. Continue PT, OT. Patient cleared from the renal standpoint for discharge planning. JOSÉ MIGUEL/RENÉ Voice ID: [id number] Report ID: [id number]
[2023-05-16] MEDS: EPOETIN ALFA 10,000 UNIT/ML VIAL IV SCH (14:45)
[2023-05-16] MEDS: ATORVASTATIN 40 MG TAB PO SCH (20:41)
[2023-05-16] MEDS: NYSTATIN PWDR 100000 UNIT/GM TOP SCH (20:42)
[2023-05-17 03:43] LABS: Potassium 3.6 mEq/L (3.5-5.1)
[2023-05-17] MEDS: METOPROLOL XL 25 MG TAB PO SCH ×2 (05:30→18:01)
[2023-05-17 06:23] LABS: Magnesium 2.4 mg/dL (1.6-2.4)
[2023-05-17] MEDS: AMINO ACIDS/PROTEIN HYDROLYS 30 ML LIQUID.PKT PO SCH ×2 (09:00→20:31)
[2023-05-17] MEDS ORDERED: POTASSIUM CL SA 10 MEQ TAB PO ONE (09:00)
[2023-05-17] MEDS: Bupropion Hcl [Wellbutrin] 75 MG Tablet PO SCH ×2 (09:00→20:30)
[2023-05-17] MEDS: PANTOPRAZOLE 40MG TABLET PO SCH (09:11)
[2023-05-17] MEDS: LEVOTHYROXINE SOD 0.075 MG TAB PO SCH (09:11)
[2023-05-17] MEDS: AMLODIPINE 5 MG TAB PO SCH (09:11)
[2023-05-17] MEDS: APIXABAN 2.5 MG TABLET PO SCH ×2 (09:11→20:28)
[2023-05-17] MEDS: CLOPIDOGREL 75 MG TABLET PO SCH (09:11)
[2023-05-17] MEDS: NYSTATIN PWDR 100000 UNIT/GM TOP SCH ×2 (09:12→20:30)
[2023-05-17] MEDS: COLLAGENASE 30 GM OINTMENT TOP SCH (09:13)
--- NOTE | 2023-05-17 09:52 | P.PN ---
Date of Service: 05/17/23 Subjective: Doing well today, no complaints Had dialysis yesterday, breathing/feeling much better ROS: 10 point ROS as noted above, otherwise negative Physical exam GEN: Alert, oriented, NAD HEENT: Normal conjunctiva, sclera anicteric CV: Regular rate and rhythm, no edema Pulm: Nonlabored respirations on room air ABD: Soft, nontender, nondistended MSK: No joint tenderness Integumentary: No rashes Neuro: Normal speech, normal affect Vitals reviewed Problem List ESRD Pulmonary Edema Fluid volume overload Nephrology consulted/managing Now on MWF schedule Improving Awaiting possible placement at SNF [place] [facility] Troponin Troponin 104, 82.7/88.1, Downtrending No chest pain likely demand ischemia/decreased renal clearance Clot in Right Jugular vein Above dialysis port Continue Eliquis multiple wounds/eduardo to inferior sternal incision s/p CABG Eduardo removed by me 05/17 VTE: Continue Eliquis Code: Full Dispo: Likely SNF Time Spent Managing Pts Care (In Minutes): 35 <Simon Bolaños - Last Filed: 05/17/23 09:51> continues with weakness previously able to assist with transfers, still remains very weak working with PT would benefit from SNF for ongoing PT, regain function she had <Michael Sykes - Last Filed: 05/17/23 20:21>
--- NOTE | 2023-05-17 13:16 | PN ---
Date of Progress Note: 05/17/2023 Subjective: Patient was admitted with overvolume. Patient has been dialyzed daily. Then, we switch ed her back to her schedule, tolerating the dialysis very well. Patient is off oxygen currently. Physical Examination: Vital Signs: Blood pressure 132/60, pulse of 87, afebrile. Chest: Clear to auscultation. Heart: S1, S2. Systolic murmur. Abdomen: Soft, nontender. Extremities: No edema. Neuro: Alert. No focality. Laboratory Data: Hemoglobin 8.9. Sodium 141, potassium 3.6, bicarb 27, BUN 21, creatinine 2.8, calc ium 8.4. Current Medications: The patient is on include: 1.Loratadine. 2.Nystatin. 3.Eliquis. 4.Plavix. 5.Epogen. 6.Metoprolol 12.5 b.i.d. 7.Amlodipine 5 mg daily. 8.Levothyroxine. Assessment And Plan: 1.End-stage renal disease; overvolume, currently normal volume. We will back the patient to her [facility] Sunday, Sunday, Sunday. We will schedule her for tomorrow dialysis. 2.Secondary hyperparathyroidism, stable. We will continue supplement. 3.Congestive heart failure with exacerbation as above, currently back to her schedule. Patient is cleared from the Renal standpoint for discharge planning. CR Voice ID: [id number] Report ID: [id number]
[2023-05-17] MEDS: SILVER SULFADIAZINE 1% 50 GM TOP SCH ×2 (15:33→20:32)
[2023-05-17] MEDS: MUPIROCIN 2% OINT 22GM TUBE TOP SCH ×2 (15:34→20:29)
[2023-05-17] MEDS: ATORVASTATIN 40 MG TAB PO SCH (20:28)
[2023-05-18 03:07] LABS: Potassium 4.1 mEq/L (3.5-5.1)
[2023-05-18] MEDS: METOPROLOL XL 25 MG TAB PO SCH ×2 (05:38→17:07)
[2023-05-18] MEDS: LEVOTHYROXINE SOD 0.075 MG TAB PO SCH (08:49)
[2023-05-18] MEDS: CLOPIDOGREL 75 MG TABLET PO SCH (08:49)
[2023-05-18] MEDS: PANTOPRAZOLE 40MG TABLET PO SCH (08:50)
[2023-05-18] MEDS: APIXABAN 2.5 MG TABLET PO SCH ×2 (08:50→21:08)
[2023-05-18] MEDS: AMLODIPINE 5 MG TAB PO SCH (08:50)
[2023-05-18] MEDS: COLLAGENASE 30 GM OINTMENT TOP SCH (08:50)
[2023-05-18] MEDS: NYSTATIN PWDR 100000 UNIT/GM TOP SCH ×2 (08:50→21:09)
[2023-05-18] MEDS: MUPIROCIN 2% OINT 22GM TUBE TOP SCH ×2 (08:50→21:00)
[2023-05-18] MEDS: SILVER SULFADIAZINE 1% 50 GM TOP SCH ×2 (08:51→21:09)
[2023-05-18] MEDS: AMINO ACIDS/PROTEIN HYDROLYS 30 ML LIQUID.PKT PO SCH ×2 (08:51→21:08)
[2023-05-18] MEDS: Bupropion Hcl [Wellbutrin] 75 MG Tablet PO SCH ×2 (09:00→21:00)
--- NOTE | 2023-05-18 09:22 | P.PN ---
Date of Service: 05/18/23 Subjective: Doing well today, no complaints Had dialysis yesterday, breathing/feeling much better Working with PT, reports prior to hospitalization she was able to do transfers without assistance to her wheelchair and generally was medication/had better strength, feeling quite weak still unable to do independent transfers, working well with PT hoping for further continue with long term facility ROS: 10 point ROS as noted above, otherwise negative Physical exam GEN: Alert, oriented, NAD HEENT: Normal conjunctiva, sclera anicteric CV: Regular rate and rhythm, no edema Pulm: Nonlabored respirations on room air ABD: Soft, nontender, nondistended MSK: No joint tenderness Integumentary: No rashes Neuro: Normal speech, normal affect Vitals reviewed Problem List ESRD Pulmonary Edema Fluid volume overload Nephrology consulted/managing Now on MWF schedule Awaiting possible placement at SNF [place] Working with PT, used independently transfer and was generally much stronger, now unable to independently transfer feeling quite weak Elveated Troponin Troponin 104, 82.7/88.1, Downtrending No chest pain likely demand ischemia/decreased renal clearance Clot in Right Jugular vein Above dialysis port Continue Eliquis multiple wounds/eduardo to inferior sternal incision s/p CABG [place] removed by me 05/17 VTE: Continue Eliquis Code: Full Dispo: Likely SNF Time Spent Managing Pts Care (In Minutes): 35
[2023-05-18] MEDS ORDERED: CEPHALEXIN 250 MG CAP PO ONE (13:33)
--- NOTE | 2023-05-18 14:21 | P.PN ---
Subjective Date of Service: 05/18/23 Chief Complaint: SOB Subjective: No new changes Physical Examination - Vital Signs Temperature: 97.0 F Blood Pressure: 146/65 Pulse: 79 Respirations: 16 Pulse Ox (%): 98 - Physical Exam General: Other (Chronically ill-appearing) HEENT: Atraumatic, Normocephalic Neck: Supple Respiratory: Other (symmetric chest expansion) Cardiovascular: No rubs, No murmurs Gastrointestinal: Soft and benign, No guarding Musculoskeletal: No clubbing Integumentary: No warmth Neurological: Normal tone Urinary: Other (no bladder distention) External genitalia: Deferred Rectal: Deferred - Studies Microbiology Data (last 24 hrs): 05/12/23 13:20 Blood - Blood Aerobic Blood Culture - Final No growth in 5 days. 05/12/23 13:20 Blood - Blood Anaerobic Blood Culture - Final No growth in 5 days. 05/12/23 13:04 Blood - Blood Aerobic Blood Culture - Final No growth in 5 days. 05/12/23 13:04 Blood - Blood Anaerobic Blood Culture - Final No growth in 5 days. Assessment And Plan - Plan 1. End-stage renal disease on HD MWF. Received HD today. 2. Secondary hyperparathyroidism, stable. We will continue supplement. 3. Congestive heart failure with exacerbation. HD as above. 4. Anemia. Monitor CBC. 5. Renal osteodystrophy. Monitor Ca & Phos. 6. Dispo. Dc to rehab facility ongoing.
[2023-05-18] MEDS: CEPHALEXIN 500 MG CAP PO SCH (14:39)
--- NOTE | 2023-05-18 16:09 | RAD REPORT ---
EXAM DESCRIPTION: US - Extremity Nonvascular Complete - 05/18/2023 2:24 pm CLINICAL HISTORY: Swelling Palpable area right medial thigh COMPARISON: None. TECHNIQUE: Real-time sonographic evaluation of the right lower extremity. FINDINGS: Ovoid complex cystic lesion within the subcutaneous soft tissues of the medial thigh, shaniqua uring 4.1 x 2.0 x 2.3 cm. The lesion demonstrates internal debris with multiple septations, and poste rior acoustic enhancement. No surrounding hypervascularity to suggest inflammation or acute infection , although superimposed infection would be difficult to exclude. No solid components. IMPRESSION: Complex cystic 4.1 cm subcutaneous lesion underlying the palpable abnormality, with imag ing features most suggestive of an organizing hematoma.
[2023-05-18] MEDS: EPOETIN ALFA 10,000 UNIT/ML VIAL IV SCH (18:33)
[2023-05-18] MEDS: ATORVASTATIN 40 MG TAB PO SCH (21:08)
[2023-05-19 03:44] LABS: Albumin 2.5 g/dL (3.4-5.0); Phosphorus 3.3 mg/dL (2.5-4.9); Potassium 3.9 mEq/L (3.5-5.1)
[2023-05-19] MEDS: METOPROLOL XL 25 MG TAB PO SCH ×2 (05:39→16:25)
[2023-05-19] MEDS: NYSTATIN PWDR 100000 UNIT/GM TOP SCH ×2 (08:59→20:17)
[2023-05-19] MEDS: COLLAGENASE 30 GM OINTMENT TOP SCH (08:59)
[2023-05-19] MEDS: CEPHALEXIN 500 MG CAP PO SCH (08:59)
[2023-05-19] MEDS: CLOPIDOGREL 75 MG TABLET PO SCH (08:59)
[2023-05-19] MEDS: SILVER SULFADIAZINE 1% 50 GM TOP SCH ×2 (08:59→21:00)
[2023-05-19] MEDS: MUPIROCIN 2% OINT 22GM TUBE TOP SCH ×2 (08:59→21:00)
[2023-05-19] MEDS: LEVOTHYROXINE SOD 0.075 MG TAB PO SCH (08:59)
[2023-05-19] MEDS: AMLODIPINE 5 MG TAB PO SCH (09:00)
[2023-05-19] MEDS: APIXABAN 2.5 MG TABLET PO SCH ×2 (09:00→20:12)
[2023-05-19] MEDS: PANTOPRAZOLE 40MG TABLET PO SCH (09:00)
[2023-05-19] MEDS ORDERED: CEPHALEXIN 500 MG PO SCH (09:00)
[2023-05-19] MEDS: Bupropion Hcl [Wellbutrin] 75 MG Tablet PO SCH ×2 (09:00→20:14)
[2023-05-19] MEDS: AMINO ACIDS/PROTEIN HYDROLYS 30 ML LIQUID.PKT PO SCH ×2 (09:00→20:13)
--- NOTE | 2023-05-19 09:41 | P.PN ---
Date of Service: 05/19/23 Subjective: Doing well today, no complaints Had dialysis yesterday, breathing/feeling much better Working with PT, reports prior to hospitalization she was able to do transfers without assistance to her wheelchair and generally was medication/had better strength, feeling quite weak still unable to do independent transfers, working well with PT hoping for further continue with [facility] facility ROS: 10 point ROS as noted above, otherwise negative Physical exam GEN: Alert, oriented, NAD HEENT: Normal conjunctiva, sclera anicteric CV: Regular rate and rhythm, no edema Pulm: Nonlabored respirations on room air ABD: Soft, nontender, nondistended MSK: No joint tenderness Integumentary: palpable skin mass/lesion present right thigh area Neuro: Normal speech, normal affect Vitals reviewed Problem List ESRD Pulmonary Edema Fluid volume overload Nephrology consulted/managing Now on MWF schedule Awaiting possible placement at SNF [place] Working with PT, used independently transfer and was generally much stronger, now unable to independently transfer feeling quite weak Right thigh hematoma vs lymphadenopathy Palpable skin mass present right thigh area Patient reports its been there "a couple days" US shows Complex cystic 4.1 cm subcutaneous lesion underlying the palpable abnormality, with imaging features most suggestive of an organizing hematoma. Has history of septic right knee distal to area, on oral abx until FU OP with ortho Could be lymphadenopathy Continue keflex 500mg PO daily Monitor for signs of infection Elveated Troponin Troponin 104, 82.7/88.1, Downtrending No chest pain likely demand ischemia/decreased renal clearance Clot in Right Jugular vein Above dialysis port Continue Eliquis multiple wounds/eduardo to inferior sternal incision s/p CABG [place] removed by me 05/17 VTE: Continue Eliquis Code: Full Dispo: Likely SNF Time Spent Managing Pts Care (In Minutes): 35
[2023-05-19] MEDS ORDERED: D50W 25 GM/50 ML SYRINGE IV PRN (12:04)
[2023-05-19] MEDS ORDERED: GLUCAGON 1 MG/VIAL IM PRN (12:04)
--- NOTE | 2023-05-19 14:41 | EKG ---
Test Date: 2023-05-12 Test Time: 14:09:21 Video Clerk: DUDLEY MEASUREMENT RESULTS: Intervals: Rate: 90 HI: 186 QRSD: 112 QT: 416 QTc: 508 [place]: P: 63 HI: 186 QRS: 18 T: 87 INTERPRETIVE STATEMENTS: Sinus rhythm with fusion complexes and premature atrial complexes with aberrant conduction Low voltage QRS Cannot rule out Anterior infarct, age undetermined Abnormal ECG Compared to ECG 05/09/2023 07:25:39 Atrial premature complex(es) now present Fusion complex(es) now present Aberrant conduction of supraventricular beat(s) now present Myocardial infarct finding now present T-wave abnormality no longer present Electronically Signed On 05-19-23 14:20:20 CLEANING TEAM MEMBER by Imer Lantigua
--- NOTE | 2023-05-19 16:07 | RAD REPORT ---
EXAM DESCRIPTION: CT - Lower Ext Wo Con W/ Mpr - 05/19/2023 2:20 pm CLINICAL HISTORY: Right medial thigh mass, extending proximally COMPARISON: Extremity Nonvascular Complete dated 05/18/2023 TECHNIQUE: Thin axial CT images of the right lower extremity were obtained without IV contrast. Sagi ttal and coronal reconstructions were generated and reviewed. All CT scans are performed using dose optimization technique as appropriate and may include automated exposure control or mA/KV adjustment according to patient size. FINDINGS: Medial posterior upper thigh well-circumscribed ovoid subcutaneous fluid density collectio n measuring 2.4 x 2.0 cm in greatest axial dimensions and 4.3 cm in greatest craniocaudal extent. Aky rounding subcutaneous soft tissue swelling/fat stranding and overlying skin thickening. Milder soft t issue swelling along the remainder of the upper thigh circumference. No acute fracture or osseous abnormality. Right total knee arthroplasty hardware in satisfactory alig nment. Mild suprapatellar effusion. Extensive medial vascular calcifications. Crescentic lipoma withi n the substance of the vastus lateralis at the level of the mid thigh measuring 3 cm in greatest dime nsion. IMPRESSION: Ovoid fluid density within the medial posterior upper thigh subcutaneous soft tissues, m easuring up to 4.3 cm in greatest dimension. Surrounding inflammatory changes. CT appearance would nina ggest an organizing hematoma, seroma, although superimposed infection cannot be entirely excluded. Pl ease correlate clinically. Other incidental findings as above.
[2023-05-19] MEDS: INSULIN REGULAR (HUMAN) 100 UNIT/ML SQ SCH ×2 (16:25→21:00)
--- NOTE | 2023-05-19 19:45 | CON ---
Date of Consultation: 05/19/2023 Reason For Service: Necrotic wound of the left lower leg region and swelling of the right thigh terrence on. History Of Present Illness: This is the case of a 68-year-old patient with history of renal failure, coronary artery disease, history of CABG with harvesting of the right and left saphenous veins. Everardo arently, the right side as per primary doctor did not work properly, so they went to the left side. It was successful, but left a nonhealing wound with necrotic wound over the left area with thick esch ar, being treated with Santyl, but has not improved at all. So, surgical intervention was requested for surgical debridement. Past Medical History: Significant for hypertension; hypothyroidism; end-stage renal disease, on hemo dialysis; hyperlipidemia; depression; gastroparesis; neuropathy; coronary artery disease. Past Surgical History: Surgeries include neck fusion, peritoneal dialysis catheter, cholecystectomy, thyroidectomy, C-sections, carpal tunnel surgeries, knee replacement. Social History: She does not smoke. She does not drink alcohol. Family History: Includes heart disease, hypertension. Review of Systems: No shortness of breath. No chest pain. No fever. She just had the swelling of the right thigh terrence on and basically the open wound in the left leg. Physical Examination: General: Patient is awake and alert. HEENT: Pupils anicteric. Neck: Supple. Chest: Clear. Abdomen: Soft and depressible. No guarding or rebound. Extremities: Over the right distal thigh region on the medial side, the patient has the appearance o f a hematoma going into the area near the harvest. Some studies are being done during this admission . Does not seem to be have any fluctuance, may be just an old hematoma present. No need for I and D at this moment. On the left leg, in the proximal medial side of the left leg, patient has an about 7 x 2 cm necrotic eschar present with erythema around the region. That area may need some debridemen t. There is tiny little fluctuance inside. Dorsalis pedis pulses diminished bilaterally. Laboratory Data: Blood work shows WBC count of 7 with hemoglobin of 8.9. INR is 1.16. Potassium 3. 9. The patient has once again a lower extremity CT that is still pending. Extremity ultrasound done on 05/18/2023, interpreted by Dr. Cody as complex cystic 4 x 1 cm lesion, probably a hematoma. Assessment: A 68-year-old patient comes to us with a necrotic wound of the left lower extremity wher e previous harvest was done of the vein, and patient also has what looks like hematoma in the right m edial thigh region. For the hematoma, we are going to continue conservative treatment for the left l eg. Jonn has not removed this at all, so we going to do a surgical debridement, most likely under local anesthetic at bedside with benefits, alternatives, and risks include, but not limited to infect ion, bleeding, damage to adjacent structures, anesthesia complication, nonhealing wound, MS, and even . She also going to have [facility] since she has alexandro ous stasis disease, probably develop venous stasis ulcer that may require the [facility] to help her heal. ELLIOT/RENÉ Voice ID: [id number] Report ID: [id number]
[2023-05-19] MEDS: CEFAZOLIN 1 GM in NA CHLORIDE 0.9% 50 ML IVPB SCH (20:11)
[2023-05-19] MEDS: ATORVASTATIN 40 MG TAB PO SCH (20:12)
[2023-05-19] MEDS ORDERED: NA CHLORIDE 0.9% 250 ML ONE (20:34)
--- NOTE | 2023-05-20 01:58 | PN ---
Date of Progress Note: 05/19/2023 Chief Complaint: End-stage renal disease, on hemodialysis, severe peripheral vascular disease, fluid overload. Review of Systems: The patient is feeling better. She denies chest pain, palpitation. Denies syncope, cough, hemoptysi s. Physical Examination: Lungs: Clear to auscultation bilaterally. Heart: S1, S2. Abdomen: Soft. Extremities: Slight edema. Impression And Plan: 1.End-stage renal disease. The patient received dialysis yesterday. Procedure was well tolerated. The patient required daily dialysis for volume control to prevent congestive heart failure. 2.Secondary hyperparathyroidism, stable. Continue binders and monitor phosphorus level. 3.Congestive heart failure with exacerbation. Systolic and diastolic congestive heart failure. Agatha lysis was done with daily treatments to treat fluid overload. Continue p.o. fluid restriction. Jessica tor fluid balance. 4.Anemia due to chronic kidney disease. Monitor CBC. 5.Renal osteodystrophy. Continue binders. Monitor phosphorus, calcium level. EB/MODL Voice ID: [id number] Report ID: [id number]
[2023-05-20 03:30] LABS: Hematocrit 25.9 % (36.0-45.0); MCV 91.4 fL (80-100); MPV 8.6 fL (7.6-11.3); Platelets 122 thou/uL (152-406); RBC Red Blood Cell Count 2.83 M/uL (3.86-4.86)
[2023-05-20 03:44] LABS: Albumin 2.5 g/dL (3.4-5.0); Phosphorus 3.7 mg/dL (2.5-4.9); Potassium 4.3 mEq/L (3.5-5.1)
[2023-05-20] MEDS: LEVOTHYROXINE SOD 0.075 MG TAB PO SCH (06:03)
[2023-05-20] MEDS: METOPROLOL XL 25 MG TAB PO SCH ×2 (06:03→16:49)
[2023-05-20] MEDS: INSULIN REGULAR (HUMAN) 100 UNIT/ML SQ SCH ×4 (07:30→20:24)
[2023-05-20] MEDS: MUPIROCIN 2% OINT 22GM TUBE TOP SCH ×2 (08:44→20:23)
[2023-05-20] MEDS: SILVER SULFADIAZINE 1% 50 GM TOP SCH ×2 (08:44→20:24)
[2023-05-20] MEDS: AMINO ACIDS/PROTEIN HYDROLYS 30 ML LIQUID.PKT PO SCH ×2 (08:44→20:24)
[2023-05-20] MEDS: NYSTATIN PWDR 100000 UNIT/GM TOP SCH ×2 (08:44→20:24)
[2023-05-20] MEDS: COLLAGENASE 30 GM OINTMENT TOP SCH (08:45)
[2023-05-20] MEDS: APIXABAN 2.5 MG TABLET PO SCH ×2 (08:47→20:23)
[2023-05-20] MEDS: CLOPIDOGREL 75 MG TABLET PO SCH (08:47)
[2023-05-20] MEDS: Bupropion Hcl [Wellbutrin] 75 MG Tablet PO SCH ×2 (08:47→20:24)
[2023-05-20] MEDS: PANTOPRAZOLE 40MG TABLET PO SCH (08:47)
[2023-05-20] MEDS: CEFAZOLIN 1 GM in NA CHLORIDE 0.9% 50 ML IVPB SCH ×2 (08:47→20:51)
[2023-05-20] MEDS: AMLODIPINE 5 MG TAB PO SCH (08:47)
--- NOTE | 2023-05-20 09:32 | P.PN ---
Date of Service: 05/20/23 Subjective: Doing well today, no complaints Had dialysis yesterday, breathing/feeling much better Working with PT, reports prior to hospitalization she was able to do transfers without assistance to her wheelchair and generally was medication/had better strength, feeling quite weak still unable to do independent transfers, working well with PT hoping for further continue with alf facility Area of swelling to right thigh slightly larger/more firm today No other complaints/no acute events overnight ROS: 10 point ROS as noted above, otherwise negative Physical exam GEN: Alert, oriented, NAD HEENT: Normal conjunctiva, sclera anicteric CV: Regular rate and rhythm, no edema Pulm: Nonlabored respirations on room air ABD: Soft, nontender, nondistended MSK: No joint tenderness Integumentary: palpable skin mass/lesion present right thigh area with minimal erythema present Neuro: Normal speech, normal affect Vitals reviewed Problem List ESRD Pulmonary Edema Fluid volume overload Nephrology consulted/managing Now on MWF schedule Awaiting possible placement at SNF Looking at [facility] Working with PT, used independently transfer and was generally much stronger, now unable to independently transfer feeling quite weak Right thigh hematoma vs lymphadenopathy Palpable skin mass present right thigh area Patient reports its been there "a couple days" US shows Complex cystic 4.1 cm subcutaneous lesion underlying the palpable abnormality, with imaging features most suggestive of an organizing hematoma. CT LE 05/19 4.3cm ovoid fluid density with surrounding inflammatory changes suggesting organizing hematoma, seroma other superimposed infection cannot be entirely excluded Has history of septic right knee distal to area, on oral abx until FU OP with ortho Switched from p.o. Keflex daily which she has been taking at home for the last few months to Ancef given new possible complicated hematoma versus seroma to the right thigh area WBC WNL, no fevers if no further signs of infection can switch back to keflex at DC Left lower extremity wound From CABG vein harvesting Seen by general surgery who will perform bedside debridement today Elveated Troponin Troponin 104, 82.7/88.1, Downtrending No chest pain likely demand ischemia/decreased renal clearance Clot in Right Jugular vein Above dialysis port Continue Eliquis multiple wounds/eduardo to inferior sternal incision s/p CABG [place] removed by me 05/17 VTE: Continue Eliquis Code: Full Dispo: Likely SNF Time Spent Managing Pts Care (In Minutes): 35 <Simon Bolaños - Last Filed: 05/20/23 09:28> Patient seen and examined on rounds this morning. Plan of care discussed with CUTTER OPERATOR ASBESTOS SHINGLE Miky. Agree with plan as noted above with the following ad ditions/corrections: feels right groin bump is not any worse, no increased pain, no increased redness. no new/worsening symptoms remains afebrile Dr. Walls to perform bedside debridement of L leg wound - prior vein harvest site continue antibiotics <Michael Sykes - Last Filed: 05/20/23 17:19>
[2023-05-20] MEDS: ATORVASTATIN 40 MG TAB PO SCH (20:23)
[2023-05-20] MEDS ORDERED: NA CHLORIDE 0.9% 50 ML ONE (20:46)
[2023-05-20] MEDS ORDERED: LOPERAMIDE HCL 2 MG CAPSULE PO STA (21:55)
--- NOTE | 2023-05-20 23:13 | PN ---
Date of Progress Note: 05/20/2023 Chief Complaint: End-stage renal disease, on hemodialysis; severe peripheral vascular disease, fluid overload. Subjective: The patient underwent dialysis on Sunday. She completed daily treatment during this adm ission and she is to resume dialysis 3 times per week. Volemia has improved. Review of Systems: Denies complaints. Physical Examination: Lungs: Clear to auscultation bilaterally. Heart: S1, S2. Abdomen: Soft. Benign. Extremities: Slight edema in both ankles. Impression And Plan: 1.End-stage renal disease. Patient received dialysis on Sunday. Procedure was well tolerated. Pat ient required daily dialysis for volume control to prevent congestive heart failure exacerbation. 2.Secondary hyperparathyroidism, stable. Continue binders and monitor phosphorus level. 3.Congestive heart failure with exacerbation, systolic and diastolic congestive heart failure. Cont inue low-sodium diet, p.o. fluid restriction. Adjust ultrafiltration to control volemia. 4.Anemia due to chronic kidney disease. Monitor CBC. 5.Renal osteodystrophy. Continue binders. Monitor phosphorus, calcium level. EB/MODL Voice ID: [id number] Report ID: [id number]
[2023-05-21 02:51] LABS: Hematocrit 26.4 % (36.0-45.0); MCV 91.9 fL (80-100); MPV 8.9 fL (7.6-11.3); Platelets 101 thou/uL (152-406); RBC Red Blood Cell Count 2.88 M/uL (3.86-4.86)
[2023-05-21 03:11] LABS: Albumin 2.5 g/dL (3.4-5.0); Phosphorus 5.1 mg/dL (2.5-4.9); Potassium 4.1 mEq/L (3.5-5.1)
[2023-05-21] MEDS: LEVOTHYROXINE SOD 0.075 MG TAB PO SCH (05:25)
[2023-05-21] MEDS: METOPROLOL XL 25 MG TAB PO SCH ×2 (05:25→18:14)
[2023-05-21] MEDS: INSULIN REGULAR (HUMAN) 100 UNIT/ML SQ SCH ×4 (07:30→20:33)
[2023-05-21] MEDS: NYSTATIN PWDR 100000 UNIT/GM TOP SCH ×2 (08:21→20:32)
[2023-05-21] MEDS: COLLAGENASE 30 GM OINTMENT TOP SCH (08:22)
[2023-05-21] MEDS: MUPIROCIN 2% OINT 22GM TUBE TOP SCH ×2 (08:22→20:20)
[2023-05-21] MEDS: AMINO ACIDS/PROTEIN HYDROLYS 30 ML LIQUID.PKT PO SCH ×2 (08:22→20:22)
[2023-05-21] MEDS: AMLODIPINE 5 MG TAB PO SCH (08:23)
[2023-05-21] MEDS: Bupropion Hcl [Wellbutrin] 75 MG Tablet PO SCH ×2 (08:23→20:21)
[2023-05-21] MEDS: APIXABAN 2.5 MG TABLET PO SCH ×2 (08:25→20:19)
[2023-05-21] MEDS: SILVER SULFADIAZINE 1% 50 GM TOP SCH (08:26)
[2023-05-21] MEDS: CLOPIDOGREL 75 MG TABLET PO SCH (08:26)
[2023-05-21] MEDS: PANTOPRAZOLE 40MG TABLET PO SCH (08:26)
[2023-05-21] MEDS ORDERED: CEFAZOLIN SODIUM 1 GM/VIAL ONE (10:01)
[2023-05-21] MEDS ORDERED: propofoL 200 MG/20 ML VIAL IV ONE ×2 (10:22→11:40)
[2023-05-21] MEDS ORDERED: MIDAZOLAM HCL 2 MG/2 ML INJ ONE (10:23)
--- NOTE | 2023-05-21 11:37 | P.BOP ---
Preoperative diagnosis: multiple necrotic infected wound left leg Postoperative diagnosis: same Primary procedure: excisional debridement necrotic infected wound left leg Secondary procedure: 1. proximal medial 10 x 3 x.5 cm, 2. Left mid lateral 4 x 2 x 0.5cm Other procedure(s): 3. left lateral/posterior distal 4 x 2 x 0.5 cm Estimated blood loss: <10cc Specimen: culture and necrotic tissue Findings: as above Anesthesia: MAC Drain(s): Other Transferred to: Recovery Room Condition: Good
--- NOTE | 2023-05-21 12:11 | OP ---
Date of Procedure: 05/21/2023 Surgeon: Tony Walls MD Preoperative Diagnosis: Multiple necrotic infected wounds of left leg. Postoperative Diagnosis: Multiple necrotic infected wounds of left leg. Procedure: Excisional debridement of necrotic infected wound, left le.Proximal medial area, it is a 10 x 3 x 0.5 cm. 2.Left mid lateral 4 x 2 x 0.5 cm. 3.Left lateral posterior distal 4 x 2 x 0.5 cm. Estimated Blood Loss: Less than 10 cc. Specimen: Culture and necrotic tissue. Findings: Necrotic tissue with fluctuance underneath consistent with an infected fluid collection. Cultures were sent. Anesthesia: MAC plus local. Complications: None. Indication: This is a case of a 68-year-old patient who recently had a cardiac bypass with harvestin g of the vein from bilateral lower extremity. Apparently, the right side did not work and then they went for the left side and then the wounds became necrotic and then eventually developed fluctuance a nd collections and I was called for debridement. The benefits, alternatives, and risks of excisional debridement of those 3 areas fully explained, which include, but not limited to, infection, bleeding , damage to adjacent structures, anesthesia complication, recurrence, VT, and even . She also u nderstands the importance of being compliance with treatment after the procedure and following up wit h us at the [facility] or at our office as an outpatient. She understood, signed a consent . Patient understands to follow up with also her surgeons in [place]. Description Of Procedure: Areas were marked by me and the patient in the holding room. Patient brou ght to the operating room, placed in supine position. Anesthesia was done without complication. Lef t leg was prepped and draped in usual sterile fashion. A time-out was called followed by excisional debridement of each one area individually with a sharp knife. Once we have a sharp knife to remove t he necrotic tissue, we obtained culture of the bigger one and the more necrotic and then I obtained h emostasis and covered the area with Bactroban. The patient tolerated the procedure well. Each proce dure was done individually and hemostasis was obtained in all of them. Patient sent to Recovery in s table condition. Sponge counts and instrument counts were correct. HM/MODL Voice ID: [id number] Report ID: [id number]
[2023-05-21] MEDS: EPOETIN ALFA 10,000 UNIT/ML VIAL IV SCH (15:15)
[2023-05-21] MEDS ORDERED: DIPHENHYDRAMINE 50 MG/ML VIAL IV ONE (16:13)
--- NOTE | 2023-05-21 16:19 | P.PN ---
Date of Service: 05/21/23 Subjective: Doing well today, no complaints Working with PT, reports prior to hospitalization she was able to do transfers without assistance to her wheelchair and generally was medication/had better strength, feeling quite weak still unable to do independent transfers, working well with PT hoping for further continue with long term facility Area of swelling to right thigh stable No other complaints/no acute events overnight Had dialysis and debridement LLE wound today ROS: 10 point ROS as noted above, otherwise negative Physical exam GEN: Alert, oriented, NAD HEENT: Normal conjunctiva, sclera anicteric CV: Regular rate and rhythm, no edema Pulm: Nonlabored respirations on room air ABD: Soft, nontender, nondistended MSK: No joint tenderness Integumentary: palpable skin mass/lesion present right thigh area with minimal erythema present, LLE wound S/P debridment Neuro: Normal speech, normal affect Vitals reviewed Problem List ESRD Pulmonary Edema Fluid volume overload Nephrology consulted/managing Now on MWF schedule Awaiting possible placement at SNF [place] Working with PT, used independently transfer and was generally much stronger, now unable to independently transfer feeling quite weak LLE wound from CABG graft harvest site Debridement performed 05/[address] Walls Right thigh hematoma vs lymphadenopathy Palpable skin mass present right thigh area Patient reports its been there "a couple days" US shows Complex cystic 4.1 cm subcutaneous lesion underlying the palpable abnormality, with imaging features most suggestive of an organizing hematoma. CT LE 05/19 4.3cm ovoid fluid density with surrounding inflammatory changes suggesting organizing hematoma, seroma other superimposed infection cannot be entirely excluded Has history of septic right knee distal to area, on oral abx until FU OP with ortho Switched from p.o. Keflex daily which she has been taking at home for the last few months to Ancef given new possible complicated hematoma versus seroma to the right thigh area WBC WNL, no fevers if no further signs of infection can switch back to keflex at DC Left lower extremity wound From CABG vein harvesting Seen by general surgery who will perform bedside debridement 05/21 daily dressing changes with mariangel per surgery Elveated Troponin Troponin 104, 82.7/88.1, Downtrending No chest pain likely demand ischemia/decreased renal clearance Clot in Right Jugular vein Above dialysis port Continue Eliquis multiple wounds/eduardo to inferior sternal incision s/p CABG [place] removed by me 05/17 VTE: Continue Eliquis Code: Full Dispo: Likely SNF Time Spent Managing Pts Care (In Minutes): 35
[2023-05-21] MEDS: ATORVASTATIN 40 MG TAB PO SCH (20:19)
[2023-05-21] MEDS: CEFAZOLIN 1 GM in NA CHLORIDE 0.9% 50 ML IVPB SCH (20:20)
[2023-05-21] MEDS ORDERED: HYDROMORPHONE HCL 0.5 MG/0.5 ML INJ IV ONE (23:50)
--- NOTE | 2023-05-22 02:56 | PN ---
Date of Progress Note: 05/21/2023 Chief Complaint: End-stage renal disease, on hemodialysis. The patient has severe peripheral vascul ar disease. The patient is undergoing dialysis today. She completed daily treatment for volume cont rol. She presented with congestive heart failure exacerbation and volume overload. Review of Systems: Denies chest pain, palpitation. Physical Examination: Lungs: Clear to auscultation bilaterally. Heart: S1, S2. Abdomen: Soft. Extremities: Edema in both ankles. Impression And Plan: 1.End-stage renal disease. Dialysis today was done with ultrafiltration. Procedure was well tolera matthew. 2.Secondary hyperparathyroidism, stable. Continue binders and monitor phosphorus level. 3.Congestive heart failure with exacerbation, systolic and diastolic congestive heart failure. Cont inue low-sodium diet and p.o. fluid restriction. Monitor blood pressure. Adjust ultrafiltration wit h dialysis to control volemia. 4.Anemia due to chronic kidney disease. Monitor CBC. 5.Renal osteodystrophy. Continue binders. Monitor calcium and phosphorus level. EB/MODL Voice ID: [id number] Report ID: [id number]
[2023-05-22 03:59] LABS: Hematocrit 27.5 % (36.0-45.0); MCV 91.2 fL (80-100); MPV 9.1 fL (7.6-11.3); Platelets 97 thou/uL (152-406); RBC Red Blood Cell Count 3.01 M/uL (3.86-4.86)
[2023-05-22 04:01] LABS: Albumin 2.4 g/dL (3.4-5.0); Phosphorus 4.1 mg/dL (2.5-4.9)
[2023-05-22] MEDS: METOPROLOL XL 25 MG TAB PO SCH ×2 (06:48→18:18)
[2023-05-22] MEDS: LEVOTHYROXINE SOD 0.075 MG TAB PO SCH (06:48)
[2023-05-22] MEDS: INSULIN REGULAR (HUMAN) 100 UNIT/ML SQ SCH ×4 (07:30→21:00)
[2023-05-22] MEDS: Bupropion Hcl [Wellbutrin] 75 MG Tablet PO SCH (09:00)
[2023-05-22] MEDS: BUSPIRONE 5 MG PO SCH (09:00)
[2023-05-22] MEDS: NYSTATIN PWDR 100000 UNIT/GM TOP SCH ×2 (09:07→21:00)
[2023-05-22] MEDS: COLLAGENASE 30 GM OINTMENT TOP SCH (09:07)
[2023-05-22] MEDS: PANTOPRAZOLE 40MG TABLET PO SCH (09:08)
[2023-05-22] MEDS: AMLODIPINE 5 MG TAB PO SCH (09:08)
[2023-05-22] MEDS: AMINO ACIDS/PROTEIN HYDROLYS 30 ML LIQUID.PKT PO SCH ×2 (09:08→21:03)
[2023-05-22] MEDS: CLOPIDOGREL 75 MG TABLET PO SCH (09:08)
[2023-05-22] MEDS: APIXABAN 2.5 MG TABLET PO SCH ×2 (09:09→21:03)
[2023-05-22] MEDS: MUPIROCIN 2% OINT 22GM TUBE TOP SCH ×2 (09:27→22:07)
[2023-05-22] MEDS ORDERED: BUSPIRONE 5 MG PO SCH (09:30)
[2023-05-22] MEDS: HYDROMORPHONE HCL 0.5 MG/0.5 ML INJ IV PRN ×2 (12:20→22:07)
--- NOTE | 2023-05-22 13:42 | P.PN ---
Subjective Date of Service: 05/22/23 Chief Complaint: SOB Subjective: No new changes 05/22: Meseret was sleeping but aroused easily. She is c/o left leg pain from the surgical debriedment. Social work was consulted for SNF needs and will likely need to consider intermediate placement. Her needs are currently her inability to care for herself and not able to afford help with a care service. Insurance denied SNF placement, will appeal this week. Review of Systems 10-point ROS is otherwise unremarkable Physical Examination - Vital Signs Temperature: 97.6 F Blood Pressure: 133/61 Pulse: 76 Respirations: 16 Pulse Ox (%): 96 - Physical Exam General: Alert, In no apparent distress, Oriented x3 HEENT: Atraumatic, Normocephalic, PERRLA Neck: Supple, 2+ carotid pulse no bruit, JVD not distended Respiratory: Clear to auscultation bilaterally, Normal air movement Cardiovascular: No edema, Normal pulses, Regular rate/rhythm, Normal S1 S2 Capillary refill: <2 Seconds Gastrointestinal: Normal bowel sounds, Soft and benign Musculoskeletal: No clubbing, No swelling, No contractures, Other (open wound to superior calf) Integumentary: No rashes, No breakdown, No significant lesion Neurological: Normal speech, Normal strength at 5/5 x4 extr, Normal tone Assessment And Plan - Plan Problem List ESRD Pulmonary Edema Fluid volume overload Nephrology consulted/managing Now on MWF schedule Awaiting possible placement at SNF [place] Working with PT, used independently transfer and was generally much stronger, now unable to independently transfer feeling quite weak LLE wound from CABG graft harvest site Debridement performed 05/[address] Walls Right thigh hematoma vs lymphadenopathy Palpable skin mass present right thigh area Patient reports its been there "a couple days" US shows Complex cystic 4.1 cm subcutaneous lesion underlying the palpable abnormality, with imaging features most suggestive of an organizing hematoma. CT LE 05/19 4.3cm ovoid fluid density with surrounding inflammatory changes suggesting organizing hematoma, seroma other superimposed infection cannot be entirely excluded Has history of septic right knee distal to area, on oral abx until FU OP with ortho Switched from p.o. Keflex daily which she has been taking at home for the last few months to Ancef given new possible complicated hematoma versus seroma to the right thigh area WBC WNL, no fevers if no further signs of infection can switch back to keflex at DC Left lower extremity wound From CABG vein harvesting Seen by general surgery who will perform bedside debridement 05/21 daily dressing changes with santly per surgery Elveated Troponin Troponin 104, 82.7,88.1 Downtrending No chest pain likely demand ischemia/decreased renal clearance Clot in Right Jugular vein Above dialysis port Continue Eliquis multiple wounds/eduardo to inferior sternal incision s/p CABG [place] removed by me 05/17 VTE: Continue Eliquis Code: Full Dispo: Likely SNF
--- NOTE | 2023-05-22 16:35 | PN ---
Date of Progress Note: 05/22/2023 Subjective: The patient was admitted to the hospital with overvolume. The patient was dialyzed edgar y, currently normal volume. The patient had a debridement yesterday, tolerated well. Objective: Vital Signs: Blood pressure 133/61, pulse of 76, afebrile. Chest: Clear to auscultation. Heart: S1, S2. Regular. Abdomen: Soft, nontender. Extremities: Dressing, both feet. Neurologic: Alert. No focality. Laboratory Data: Hemoglobin 8.7, sodium 137, potassium 4, bicarb 24, BUN 44, creatinine 4, calcium 8 , phosphorus 4.1. Current Medications: The patient on include: 1.Cefazolin. 2.Loratadine. 3.Epogen. 4.Plavix. 5.Eliquis. 6.Atorvastatin. 7.Metoprolol. 8.Pantoprazole. Assessment And Plan: 1.End-stage renal disease, overvolume. Currently, normal volume. I am going to continue the patien t on dialysis Sunday, Sunday, Sunday. The patient is going to be due for dialysis tomorrow. 2.Hypertension, controlled, optimal. Continue to utilize the blood pressure for more ultrafiltratio n. 3.Anemia of chronic kidney disease. Continue XENIA. 4.Foot infection, status post debridement. Follow up with Surgery. CR Voice ID: [id number] Report ID: [id number]
[2023-05-22] MEDS: HYDROCODONE/APAP 5/325 MG TAB PO PRN (16:55)
[2023-05-22] MEDS: CEFAZOLIN 1 GM in NA CHLORIDE 0.9% 50 ML IVPB SCH (21:03)
[2023-05-22] MEDS: ATORVASTATIN 40 MG TAB PO SCH (21:03)
[2023-05-23 03:12] LABS: Albumin 2.3 g/dL (3.4-5.0); Phosphorus 5.8 mg/dL (2.5-4.9); Potassium 4.2 mEq/L (3.5-5.1)
[2023-05-23] MEDS: LEVOTHYROXINE SOD 0.075 MG TAB PO SCH (05:53)
[2023-05-23] MEDS: METOPROLOL XL 25 MG TAB PO SCH ×2 (05:53→18:00)
[2023-05-23] MEDS: INSULIN REGULAR (HUMAN) 100 UNIT/ML SQ SCH ×4 (07:30→20:46)
[2023-05-23] MEDS: CLOPIDOGREL 75 MG TABLET PO SCH (08:05)
[2023-05-23] MEDS: PANTOPRAZOLE 40MG TABLET PO SCH (08:05)
[2023-05-23] MEDS: BUSPIRONE 5 MG PO SCH ×2 (08:06→20:46)
[2023-05-23] MEDS: APIXABAN 2.5 MG TABLET PO SCH ×2 (08:06→20:45)
[2023-05-23] MEDS: MUPIROCIN 2% OINT 22GM TUBE TOP SCH ×2 (08:07→20:48)
[2023-05-23] MEDS: COLLAGENASE 30 GM OINTMENT TOP SCH (08:07)
[2023-05-23] MEDS: AMLODIPINE 5 MG TAB PO SCH (08:08)
[2023-05-23] MEDS: AMINO ACIDS/PROTEIN HYDROLYS 30 ML LIQUID.PKT PO SCH ×2 (08:08→20:51)
[2023-05-23 08:48] VITALS: O2SAT 98
--- NOTE | 2023-05-23 09:26 | P.PN ---
Subjective Date of Service: 05/23/23 Chief Complaint: SOB Subjective: Doing well 05/22: Meseret was sleeping but aroused easily. She is c/o left leg pain from the surgical debriedment. Social work was consulted for SNF needs and will likely need to consider halfway placement. Her needs are currently her inability to care for herself and not able to afford help with a care service. Insurance denied SNF placement, will appeal this week. 05/23: Meseret is awake this morning, examined her left leg wounds with the nurse. Lateral lower leg wound is healing well, Packing to the superior calf. Dressing changed, She tolerated well. Scheduled for dialysis today. SNF appeal is pending. Review of Systems 10-point ROS is otherwise unremarkable Physical Examination - Vital Signs Temperature: 96.6 F Blood Pressure: 125/58 Pulse: 67 Respirations: 16 Pulse Ox (%): 100 Assessment And Plan - Plan Physical Exam General: Alert, In no apparent distress, Oriented x3 HEENT: Atraumatic, Normocephalic, PERRLA Neck: Supple, 2+ carotid pulse no bruit, JVD not distended Respiratory: Clear to auscultation bilaterally, Normal air movement Cardiovascular: No edema, Normal pulses, Regular rate/rhythm, Normal S1 S2 Capillary refill: <2 Seconds Gastrointestinal: Normal bowel sounds, Soft and benign Musculoskeletal: No clubbing, No swelling, No contractures, Other (open wound to superior calf), lateral lower leg abrasion Integumentary: No rashes, No breakdown, No significant lesion Neurological: Normal speech, Normal strength at 5/5 x4 extr, Normal tone Problem List ESRD Pulmonary Edema Fluid volume overload Nephrology consulted/managing Now on MWF schedule Awaiting possible placement at SNF [place]- Appeal for placement Working with PT, used independently transfer and was generally much stronger, now unable to independently transfer feeling quite weak LLE wound from CABG graft harvest site Debridement performed 05/[address] Walls Right thigh hematoma vs lymphadenopathy Initially: Palpable skin mass present right thigh area Patient reports its been there "a couple days" US shows Complex cystic 4.1 cm subcutaneous lesion underlying the palpable abnormality, with imaging features most suggestive of an organizing hematoma. CT LE 05/19 4.3cm ovoid fluid density with surrounding inflammatory changes suggesting organizing hematoma, seroma other superimposed infection cannot be entirely excluded Has history of septic right knee distal to area, on oral abx until FU OP with ortho Switched from p.o. Keflex daily which she has been taking at home for the last few months to Ancef given new possible complicated hematoma versus seroma to the right thigh area WBC WNL, no fevers if no further signs of infection can switch back to keflex at DC Left lower extremity wound From CABG vein harvesting Seen by general surgery who will perform bedside debridement 05/21 daily dressing changes with santly per surgery Elveated Troponin Troponin 104, 82.7,88.1 Downtrending No chest pain likely demand ischemia/decreased renal clearance Clot in Right Jugular vein Above dialysis port Continue Eliquis multiple wounds/eduardo to inferior sternal incision s/p CABG [place] removed by me 05/17 VTE: Continue Eliquis Code: Full Dispo: Appealing SNF Discharge Plan: [facility] Time Spent Managing PTS Care (In Minutes): 35
[2023-05-23] MEDS: HYDROMORPHONE HCL 0.5 MG/0.5 ML INJ IV PRN ×3 (09:58→20:52)
[2023-05-23] MEDS: EPOETIN ALFA 10,000 UNIT/ML VIAL IV SCH (12:30)
--- NOTE | 2023-05-23 15:41 | PN ---
Date of Progress Note: 05/23/2023 Subjective: Patient was admitted with overvolume. Patient was diuresed and dialyzed on a daily basi s. Patient currently on the normal volume side, tolerated well, back to dialysis Sunday, Sunday, Sunday. Dialyzed planned for today. Seen on dialysis. Objective: Vital Signs: Blood pressure 129/58, pulse of 67, afebrile. Chest: Crackles in the left base. Heart: S1, S2. Systolic murmur. Abdomen: Soft, nontender. Extremities: Dressing, both legs. Neurologic: Alert. No focality. Laboratory Data: Hemoglobin 8.7, sodium 137, potassium 4.2, bicarb 22, BUN 56, creatinine 4.8, calci um 7.9, phosphorus 5.8. Current Medications: The patient on, it includes: 1.Cefazolin. 2.Eliquis. 3.Plavix. 4.Epogen. 5.Atorvastatin. 6.Amlodipine. 7.Amino acid. Assessment And Plan: 1.End-stage renal disease, overvolume, currently back to normal volume. We will continue dialysis M , Sunday, Sunday. We will increase her goal today to 3500. 2.Hypertension, controlled, optimal. To continue utilize the blood pressure for ultrafiltration. 3.Congestive heart failure with exacerbation as above. We will challenge the patient. 4.Anemia of chronic kidney disease. Continue XENIA. 5.Wound infection, status post debridement. Continue antibiotic. Follow up with Wound Care. CR Voice ID: [id number] Report ID: [id number]
[2023-05-23] MEDS ORDERED: Gentamicin Inj 120 MG in NA CHLORIDE 0.9% 100 ML IV SCH (17:00)
[2023-05-23] MEDS: HYDROCODONE/APAP 5/325 MG TAB PO PRN (18:24)
[2023-05-23] MEDS: ATORVASTATIN 40 MG TAB PO SCH (20:44)
[2023-05-24] MEDS: HYDROMORPHONE HCL 0.5 MG/0.5 ML INJ IV PRN (00:42)
[2023-05-24 02:28] LABS: Albumin 2.4 g/dL (3.4-5.0); Phosphorus 4.3 mg/dL (2.5-4.9); Potassium 4.3 mEq/L (3.5-5.1)
[2023-05-24] MEDS: LEVOTHYROXINE SOD 0.075 MG TAB PO SCH (05:32)
[2023-05-24] MEDS: METOPROLOL XL 25 MG TAB PO SCH (05:33)
[2023-05-24] MEDS: HYDROCODONE/APAP 5/325 MG TAB PO PRN (05:45)
[2023-05-24] MEDS: INSULIN REGULAR (HUMAN) 100 UNIT/ML SQ SCH ×2 (07:30→11:30)
[2023-05-24] MEDS: BUSPIRONE 5 MG PO SCH (09:00)
[2023-05-24] MEDS: COLLAGENASE 30 GM OINTMENT TOP SCH (09:00)
[2023-05-24] MEDS: MUPIROCIN 2% OINT 22GM TUBE TOP SCH (09:00)
[2023-05-24] MEDS: AMINO ACIDS/PROTEIN HYDROLYS 30 ML LIQUID.PKT PO SCH (09:00)
[2023-05-24] MEDS: CLOPIDOGREL 75 MG TABLET PO SCH (09:27)
[2023-05-24] MEDS: PANTOPRAZOLE 40MG TABLET PO SCH (09:28)
[2023-05-24] MEDS: AMLODIPINE 5 MG TAB PO SCH (09:28)
[2023-05-24] MEDS: APIXABAN 2.5 MG TABLET PO SCH (09:28)
--- NOTE | 2023-05-24 13:11 | P.DS ---
Admission Date: 05/14/23 Discharge Date: 05/24/23 Disposition: DC HOME/HOME HEALTH CARE Discharge Condition: FAIR Reason for Admission: SOB Brief History of Present Illness: Meseret Gallego is a 68 year old female with past medical history of ESRD (HD MWF), CAD status post CABG, HTN, DM2, acute on chronic CHF, diabetic neuropathy, hyperlipidemia, diabetic sores on the feet, and hypothyroidism presents to the ED with c/o SOB and swelling in her hands. Lab values improved but Chest xray continues to show "Similar prominence of the pulmonary interstitium likely reflecting mild congestive heart failure/fluid overload". Consulted [facility] who decided to dialyze today. She was previously dialyzed three days in a row and showed great improvement with her mental status. On examination, she is AAO x3, Edema to bilateral hands, lungs sound clear. Intial vitals Signs: BP 144 / 62; Pulse 95; Resp 14; Temp 98.2(O); Pulse Ox 97% on R/A. Meseret will be admitted to hospitalist service for further treatment including dialysis service and plans for discharge to a SNF. Of note: She was discharged at 6 am today on RA, vitals stable, lungs sound clear, able to position herself in the bed and with assistance arriving to her house this morning. She called the nurses station a few hours after discharge requesting help for SNF placement. She is unable to care for herself and her sister is not able to provide care either but does have on hold and IP that was meeting her at her house this morning. Hospital Course: Diagnosis ESRD Pulmonary edema Fluid volume overload LLE wound from CABG graft harvest site Right thigh hematoma versus lymphadenopathy Left lower extremity wound Elevated troponin Clot in right jugular vein Multiple wounds/eduardo to inferior sternal incision status post CABG Meseret is a pleasant 68-year-old female with a past medical history significant for ESRD (HD MWF), CAD status post CABG, HTN, DM2, acute on chronic CHF, diabetic neuropathy, hyperlipidemia, diabetic sores on the feet, and hypothyroidism who was admitted to the [facility] on 05/12/23 for SOB and swelling in her hands requiring dialysis. Meseret presented to the ED same day after discharge with complaints of shortness of breath and inability to take care of herself at home. Consult made to Dr. Flores who decided admission is best for additional dialysis. Social work started with requested SNF placement which was denied by the insurance. This morning Meseret decided she could go home with her home health and [facility] scheduled assistance. During this admission Dr. Walls assisted with left leg necrotic infected debridement. Dr. Walls will follow Meseret in outpatient wound care with first visit scheduled 05/28/2023. Dressing change instructions are included with discharge instructions. Meseret is tolerating p.o. diet, working with physical therapy, on room air sating 96%. On 05/24/2023, Meseret was seen on morning rounds and deemed medically stable for discharge. Meseret was discharged with instructions to schedule follow-up appointments with Dr. Walls on Sunday05/28/2023, Dr. Flores, and PCP. Meseret was provided prescriptions for Santyl Ointment. The patient and family members were given the opportunity to ask questions and reported no further questions. Furthermore, all questions were answered to the best of my ability. A copy of this discharge summary will be sent to the above providers to facilitate continuity of care. Today, I personally spent 55 minutes with Meseret, of which greater than 50% of the time was spent in patient education, counseling, and coordination of care as described above. Physical Exam General: Alert, In no apparent distress, Oriented x3 HEENT: Atraumatic, Normocephalic, PERRLA Neck: Supple, 2+ carotid pulse no bruit, JVD not distended Respiratory: Clear to auscultation bilaterally, Normal air movement Cardiovascular: No edema, Normal pulses, Regular rate/rhythm, Normal S1 S2 Capillary refill: <2 Seconds Gastrointestinal: Normal bowel sounds, Soft and benign Musculoskeletal: No clubbing, No swelling, No contractures, Other (open wound to superior calf), lateral lower leg abrasion Integumentary: No rashes, No breakdown, No significant lesion Neurological: Normal speech, Normal strength at 5/5 x4 extr, Normal tone Vital Signs/Physical Exam: Temp Pulse Resp BP Pulse Ox 97.3 F 68 16 128/55 L 99 05/24/23 08:00 05/24/23 08:00 05/24/23 08:00 05/24/23 08:00 05/24/23 08:00 Laboratory Data at Discharge: WBC 6.10 thou/uL (4.3-10.9) 05/22/23 02:07 Hgb 8.7 g/dL (12.0-15.0) L 05/22/23 02:07 Hct 27.5 % (36.0-45.0) L 05/22/23 02:07 Plt Count 97 thou/uL (152-406) L 05/22/23 02:07 PT 12.8 SECONDS (9.5-12.5) H 05/12/23 13:04 INR 1.16 05/12/23 13:04 APTT 30.5 SECONDS (24.3-36.9) 05/12/23 13:04 Sodium 137 mEq/L (136-145) 05/24/23 01:17 Potassium 4.3 mEq/L (3.5-5.1) 05/24/23 01:17 BUN 37 mg/dL (7-18) H 05/24/23 01:17 Creatinine 3.65 mg/dL (0.55-1.02) H 05/24/23 01:17 Glucose 135 mg/dL (74-106) H 05/24/23 01:17 Phosphorus 4.3 mg/dL (2.5-4.9) 05/24/23 01:17 Magnesium 2.4 mg/dL (1.6-2.4) 05/17/23 02:44 Total Bilirubin 0.8 mg/dL (0.2-1.0) 05/12/23 13:04 AST 24 U/L (15-37) 05/12/23 13:04 ALT 13 U/L (13-56) 05/12/23 13:04 Alkaline Phosphatase 63 U/L (45-117) 05/12/23 13:04 Home Medications: Metoprolol Succinate [Toprol Xl*] 12.5 mg PO BID 6AM 6PM tab 06/21/22 Silver Sulfadiazine Crm [Silvadene*] 1 appl TOP BID #1 jar 02/02/23 Nystatin Cream [Mycostatin 100MU/Gm Cream*] 1 appl TOP BID #1 tube 04/25/23 Levothyroxine Sodium [Synthroid] 150 mcg PO [id number] 05/09/23 Amiodarone HCl [Cordarone*] 200 mg PO DAILY 05/14/23 Ascorbic Acid/Ascorbate Sodium [Vitamin C 500 mg Tablet Chew] 1,000 mg PO DAILY 05/14/23 Aspirin [Aspirin EC 81 MG] 81 mg PO DAILY 05/14/23 Buspirone HCl [Buspar*] 1 tab PO BID 05/14/23 Cetirizine HCl [All Day Allergy Relief] 1 tab PO DAILY 05/14/23 Docusate Sodium 100 mg PO DAILY PRN 05/14/23 Fenofibrate,Micronized [Fenofibrate] 200 mg PO DAILY 05/14/23 Multivit-Min/Iron/FA/Vit K/Lut [Centrum Women 50 Plus Minis Tb] 2 tab PO DAILY 05/14/23 Sacubitril/Valsartan [Entresto 24 mg-26 mg Tablet] 0.5 tab PO BID 05/14/23 Albuterol Neb [Proventil 0.083% Neb Soln] 2.5 mg NEB [id number] PRN amp 05/24/23 Amino Acids/Protein Hydrolys [Prosource No Carb Liquid Pkt] 30 ml PO BID packet 05/24/23 Amlodipine [Norvasc*] 5 mg PO DAILY tab 05/24/23 Apixaban [Eliquis *] 2.5 mg PO BID 05/24/23 Atorvastatin Calcium [Lipitor] 40 mg PO BEDTIME tab 05/24/23 Bupropion Hcl [Wellbutrin] 1 tab PO BID 05/24/23 Clopidogrel Bisulfate [Plavix*] 75 mg PO DAILY 05/24/23 Collagenase [Santyl Ointment*] 1 appl TOP DAILY #1 tube 05/24/23 Epoetin [Retacrit] 10,000 unit IV EVERY HD vial 05/24/23 Loratadine [Claritin*] 10 mg PO DAILY PRN tab 05/24/23 Mupirocin Oint [Bactroban 2% Ointment*] 1 appl TOP BID tube 05/24/23 Pantoprazole [Protonix Tab*] 40 mg PO DAILY tab 05/24/23 New Medications: Collagenase [Santyl Ointment*] 1 appl TOP DAILY #1 tube Physician Discharge Instructions: 1. Follow up with PCP in 1-2 weeks for continued medication management 2. Follow-up with Dr. Flores in 1 to 2 weeks 3. Follow-up with Dr. Walls for wound care management, appointment to be made for Sunday or Sunday morning (05/28 or 05/29) [phone] 4. Continue dialysis schedule Sunday 5. Continue with renal diet 6. Fall precaution 7. Return to ED if symptoms return Dressing changes- wound care for more complete instructions 1. Lateral tibia, clean and dry, apply santyl, cover with gauze 2. wet to dry packing daily. 3. all other abrasions apply mupirocin daily Diet: ADA Activity: Fall precautions Followup: Elizabet Flores MD [ACTIVE - CAN ADMIT] - 1-2 Weeks Tony Walls MD [ACTIVE - CAN ADMIT] - 1-2 Weeks NONE,NONE [Primary Care Provider] - 1-2 Weeks Time spent managing pt's care (in minutes): 55
[2023-05-24 14:40] VITALS: BP 134/63; TEMP 97.2
--- NOTE | 2023-05-24 15:44 | PN ---
Date of Progress Note: 05/24/2023 Subjective: The patient was admitted to the hospital with over volume. The patient had wound infect ion status post debridement tolerated. The patient is feeling better. Physical Examination: Vital Signs: Blood pressure 128/85, pulse of 68, afebrile. Chest: Clear to auscultation. Heart: S1, S2. Regular. Abdomen: Soft, nontender. Extremities: Dressing on both legs. Neurologic: Alert. No focality. Laboratory Data: Hemoglobin 8.7. Sodium 137, potassium 4.3, bicarb 26, BUN 37, creatinine 3.6, calc ium 8.1, phosphorus 4.3. Current Medications: The patient on include: 1.Eliquis 2.5 b.i.d. 2.Plavix. 3.Epogen. 4.Amlodipine 5 mg daily. 5.Atorvastatin. 6.Metoprolol 12.5. 7.Gentamicin. 8.Pantoprazole. Assessment And Plan: 1.End-stage renal disease, over volume, status post daily dialysis. Recovered back to normal volume . We will continue currently dialysis Sunday, Sunday, Sunday. I will arrange for dialysis tomorr ow and we will follow up. 2.Hypertension, controlled, optimal. We will continue to utilize blood pressure for ultrafiltration . 3.Wound infection, status post debridement. Follow up with Surgery. 4.Anemia of chronic kidney disease. Continue XENIA. 5.Diabetes as by primary. JOSÉ MIGUEL/RENÉ Voice ID: [id number] Report ID: [id number]
== END 2023-05-24 16:09 | disposition home health service (06) | DRG 622 ==
LOC: ER 11:36 → ERHOLD 14:50 → 2ND 16:17 → OBSVTOIN 05-14 16:47
PROVIDERS: ADMIT Internal Medicine; ATTEND Internal Medicine
PROC: 5A1D70Z Performance of Urinary Filtration, Intermittent, Less than 6 Hours Per Day (ICD-10-PCS; 2023-05-12)
PROC: 0JBP0ZZ Excision of Left Lower Leg Subcutaneous Tissue and Fascia, Open Approach (ICD-10-PCS; principal; 2023-05-21 11:00)
DX: E87.70 Fluid overload, unspecified (principal); N18.6 End stage renal disease; Z16.24 Resistance to multiple antibiotics; N25.81 Secondary hyperparathyroidism of renal origin; I13.2 Hypertensive heart and chronic kidney disease with heart failure and with stage 5 chronic kidney disease, or end stage renal disease; I50.9 Heart failure, unspecified; E11.40 Type 2 diabetes mellitus with diabetic neuropathy, unspecified; E11.22 Type 2 diabetes mellitus with diabetic chronic kidney disease; D63.1 Anemia in chronic kidney disease; E03.9 Hypothyroidism, unspecified; N25.0 Renal osteodystrophy; E78.5 Hyperlipidemia, unspecified; S70.11XA Contusion of right thigh, initial encounter; I25.2 Old myocardial infarction; I25.10 Atherosclerotic heart disease of native coronary artery without angina pectoris; B96.5 Pseudomonas (aeruginosa) (mallei) (pseudomallei) as the cause of diseases classified elsewhere; R59.1 Generalized enlarged lymph nodes; R77.8 Other specified abnormalities of plasma proteins; Z95.5 Presence of coronary angioplasty implant and graft; Z88.8 Allergy status to other drugs, medicaments and biological substances; Z99.2 Dependence on renal dialysis; Z88.5 Allergy status to narcotic agent; Z95.1 Presence of aortocoronary bypass graft; Z79.4 Long term (current) use of insulin; Z79.01 Long term (current) use of anticoagulants; Z90.49 Acquired absence of other specified parts of digestive tract; Z79.02 Long term (current) use of antithrombotics/antiplatelets; Z79.899 Other long term (current) drug therapy; Z96.653 Presence of artificial knee joint, bilateral; Z87.891 Personal history of nicotine dependence; Z79.890 Hormone replacement therapy; Z91.048 Other nonmedicinal substance allergy status
CPT/HCPCS: 36415; 71045; 73700; 76377; 76881; 80048; 80069; 80076; 82947; 83735; 83880; 84100; 84132; 84484; 85025; 85027; 85610; 85730; 87040; 87070; 87075; 87077; 87186; 87205; 88304; 90935; 93005; 94760; 97110; 97161; 97165; 97530; 97542; 99285; G0378; J0690; J1170; J1200; J1580; J1644; J1815; J2250; J2704; J3475; J3590; J7050

== ENCOUNTER 2023-06-14 16:38 | Inpatient (IN) | payer OTHER ==
[2023-06-14 17:11] LABS: Absolute Lymphocytes (CBC) 0.4 K/uL (0.7-4.9); Hematocrit 26.2 % (36.0-45.0); Lymphocytes % 9.7 % (15.3-44.8); MCV 90.6 fL (80-100); Platelets 86 thou/uL (152-406); RBC Red Blood Cell Count 2.89 M/uL (3.86-4.86)
[2023-06-14 17:15] LABS: Protime INR 1.37
[2023-06-14 17:47] LABS: ALT/SGPT 21 U/L (13-56); AST/SGOT 32 U/L (15-37); Albumin 2.9 g/dL (3.4-5.0); Alkaline Phosphatase 70 U/L (45-117); BUN Blood Urea Nitrogen 62 mg/dL (7-18); Bicarbonate 20 mEq/L (21-32); Bilirubin Total 0.9 mg/dL (0.2-1.0); Glomerular Filtration Rate 8 ml/min (=/>90); Glucose Level 180 mg/dL (74-106); Magnesium 1.8 mg/dL (1.6-2.4); NT PRO-BNP > 175000 pg/mL (<125); Potassium 3.9 mEq/L (3.5-5.1); Protein, Total 6.9 g/dL (6.4-8.2); Sodium Level 139 mEq/L (136-145)
[2023-06-14 17:49] LABS: Troponin High Sensitivity 70.8 pg/mL (<58.9)
[2023-06-14 17:58] LABS: White Blood Cell Scan OK (OK)
[2023-06-14 17:59] LABS: Blood Morphology Comment NOT SEEN (NOT SEEN); Platelet Estimate DECR
--- NOTE | 2023-06-14 18:13 | RAD REPORT ---
EXAM DESCRIPTION: RADChest Single View06/14/2023 5:44 pm CLINICAL HISTORY: SOB COMPARISON: Chest Single View dated 05/12/2023; Chest Single View dated 05/09/2023; Chest Single View dated 04/23/2023; Chest Single View dated 04/22/2023 TECHNIQUE: Portable AP view of the chest. FINDINGS: Right IJ dialysis catheter unchanged in position. Stable cardiomegaly and central intersti tial prominence. Decreased inspiratory effort limits evaluation. No new focal airspace opacities. No pneumothorax or effusion. The mediastinal contours are unchanged, with sequelae of prior CABG. IMPRESSION: Stable findings including central congestion/CHF. Decreased inspiratory effort limits ev aluation.
--- NOTE | 2023-06-14 19:40 | ER ---
Nurse's Notes [facility] Name: Meseret Gallego Age: 68 yrs Sex: Female : 1955 Arrival Date: 06/14/2023 Time: 16:38 Bed 8 Private MD: Diagnosis: Unspecified combined systolic (congestive) and diastolic (congestive) heart failure;Dyspnea Presentation: 06/14 16:42 Chief complaint: EMS states: "toned out for bilateral leg infection from previous CABG mb9 sites 2 months ago.". Coronavirus screen: Vaccine status: Patient reports receiving the 2nd dose of the covid vaccine. Ebola Screen: No symptoms or risks identified at this time. Initial Sepsis Screen: Does the patient meet any 2 criteria? No. Patient's initial sepsis screen is negative. Does the patient have a suspected source of infection? No. Patient's initial sepsis screen is negative. Risk Assessment: Do you want to hurt yourself or someone else? Patient reports no desire to harm self or others. Onset of symptoms was June 14, 2023. 16:42 Method Of Arrival: EMS: [facility] mb9 16:42 Acuity: CHRISTOPHER 3 mb9 Triage Assessment: 16:51 General: Appears in no apparent distress. Behavior is calm, cooperative. Pain: Denies mb9 pain. EENT: No signs and/or symptoms were reported regarding the EENT system. Neuro: Varela Agitation-Sedation Scale (RASS): 0 - Alert and Calm Level of Consciousness is awake, alert, obeys commands, Oriented to person, place, time, situation, Appropriate for age. Cardiovascular: Heart tones S1 S2 present Patient's skin is warm and dry. Respiratory: Airway is patent Respiratory effort is even, unlabored, Respiratory pattern is regular, symmetrical, Breath sounds are clear bilaterally. GI: Abdomen is round non-distended, Bowel sounds present X 4 quads. Abd is soft and non tender X 4 quads. : No signs and/or symptoms were reported regarding the genitourinary system. Derm: Skin is pink, warm \\T\\ dry. Derm: erythema noted to bilateral lower extremities. Musculoskeletal: Range of motion: intact in all extremities, Swelling present in right leg and left leg. Historical: - Allergies: 16:47 Codeine; mb9 16:47 Phenergan; mb9 16:47 Tape; mb9 - Home Meds: 16:47 amlodipine 10 mg tab 1 tab once daily [Active]; aspirin 81 mg Oral capsule daily mb9 [Active]; atorvastatin 40 mg Oral tab 1 tab every day at bedtime [Active]; BRILINTA 90 mg Oral tab 1 tab 2 times per day [Active]; bupropion HCl 75 mg Oral tablet 2 times per day [Active]; clopidogrel 75 mg Oral tablet daily [Active]; furosemide 80 mg Oral tab 1 tab once daily [Active]; Vitamin D Oral daily [Active]; sucralfate 1 gram Oral tab 1 tab 2 times per day [Active]; lisinopril 5 mg Oral tab 1 tab once daily [Active]; Wellbutrin XL 150 mg Oral Tb24 1 tab once daily [Active]; Synthroid 150 mcg Oral tablet 1 tab daily [Active]; Protonix 40 mg Oral TbEC 1 tab once daily [Active]; midodrine 10 mg Oral tab 1 tab 3 times per day [Active]; Humalog U-100 Insulin 100 unit/mL Sub-Q crtg 50 unit twice a day [Active]; Insulin: Regular Sub-Q [Active]; Lantus U-100 Insulin 100 unit/mL Sub-Q crtg [Active]; metoprolol tartrate 12.5 mg Oral tab 2 times per day [Active]; - PMHx: 16:47 Hypertension; Myocardial infarction; Hypothyroidism; Hypercholesterolemia; Diabetes - mb9 IDDM; Dialysis; - PSHx: 16:47 2 heart stents; back; Coronary artery bypass graft; section; knee; neck; mb9 - Immunization history:: Adult Immunizations up to date. - Social history:: Smoking status: Patient denies any tobacco usage or history of. Screenin:53 [facility] ED Fall Risk Assessment (Adult) History of falling in the last 3 months, mb9 including since admission No falls in past 3 months (0 pts) Confusion or Disorientation No (0 pts) Intoxicated or Sedated No (0 pts) Impaired Gait No (0 pts) Mobility Assist Device Used No (0 pt) Altered Elimination No (0 pt) Score/Fall Risk Level 0 - 2 = Low Risk Oriented to surroundings, Maintained a safe environment, Educated pt \\T\\ family on fall prevention, incl call for assistance when getting out of bed. Abuse screen: Denies threats or abuse. Nutritional screening: No deficits noted. Tuberculosis screening: No symptoms or risk factors identified. Assessment: 18:20 Reassessment: No changes from previously documented assessment. Patient and/or family mb9 updated on plan of care and expected duration. Pain level reassessed. Patient is alert, oriented x 3, equal unlabored respirations, skin warm/dry/pink. 20:00 Reassessment: No changes from previously documented assessment. Patient and/or family vc1 updated on plan of care and expected duration. Pain level reassessed. Patient is alert, oriented x 3, equal unlabored respirations, skin warm/dry/pink. Vital Signs: 16:42 BP 140 / 75; Pulse 82; Resp 18; Temp 97.9; Pulse Ox 98% on R/A; Weight 106.59 kg; mb9 Height 5 ft. 6 in. ; 18:21 BP 113 / 66; Pulse 78; Resp 18; Pulse Ox 95% on R/A; mb9 19:59 BP 128 / 92; Pulse 79; Resp 24; Pulse Ox 98% ; rv 16:42 Body Mass Index 37.93 (106.59 kg, 167.64 cm) mb9 ED Course: 16:40 Patient arrived in ED. em1 16:41 Adrianne Her RN is Primary Nurse. mb9 16:41 Arm band placed on. mb9 16:45 Sukhi Dupree PA is PHCP. cp 16:45 Zaira Hernandez MD is Attending Physician. cp 16:47 Triage completed. mb9 16:53 Placed in gown. Bed in low position. Call light in reach. Side rails up X 1. Client mb9 placed on continuous cardiac and pulse oximetry monitoring. NIBP monitoring applied. lunchroom monitor on. 16:53 Inserted saline lock: 20 gauge in right forearm, using aseptic technique. mb9 16:53 No provider procedures requiring assistance completed. mb9 17:46 XRAY Chest (1 view) In Process Unspecified. EDMS 19:05 Report given to Alfredo RN. mb9 19:39 Benjamin Larose MD is Hospitalizing Provider. cp 19:54 Warm blanket given. Cleaned of incontinence. mc5 22:13 Patient admitted, IV remains in place. vc1 Administered Medications: 19:59 Drug: Furosemide IVP 40 mg IVP once; give over 2 minutes Route: IVP; Site: right rv forearm; 19:59 Drug: vancoMYCIN IVPB 1 grams IVPB once over 2 hrs Route: IVPB; Infused Over: 2 hrs; rv Site: right forearm; 19:59 Drug: Aspirin PO Chewable Tablet 324 mg PO once; 81 mg tablets x 4 Route: PO; rv Medication: 16:53 VIS not applicable for this client. mb9 Outcome: 19:40 Decision to Hospitalize by Provider. cp 22:13 Admitted to Tele accompanied by tech, via stretcher, room 416, Report called to keyanna Villa RN 22:13 Condition: good 22:13 Instructed on the need for admit, 22:14 Patient left the ED. 1 Signatures: Dispatcher [employer] EDMoody Hinson em1 Sukhi Dupree PA PA cp Braeden Grissom, RN RN rv Marci Jackson RN RN vc1 Adrianne Her RN RN mb9 Miriam Chung 5 Corrections: (The following items were deleted from the chart) 16:49 16:49 General: Behavior is mb9 mb9 16:51 16:42 Temp 97.9F; 106.59 kg; Height 5 ft. 6 in.; BMI: 37.9; mb9 mb9
--- NOTE | 2023-06-14 19:40 | EDPHYS ---
Physician Documentation [facility] Name: Meseret Gallego Age: 68 yrs Sex: Female : 1955 Arrival Date: 06/14/2023 Time: 16:38 Bed 8 Private MD: ED Physician Zaira Hernandez HPI: 06/14 17:00 This 68 yrs old Female presents to ER via EMS with complaints of Shortness of Breath. cp 17:00 The patient has shortness of breath at rest. Onset: The symptoms/episode began/occurred cp yesterday, and became worse today. Duration: The symptoms are continuous, and are steadily getting worse. Associated signs and symptoms: Pertinent negatives: chest pain, productive cough, diaphoresis, fever, vomiting. Patient is a 68-year-old female with past medical history significant for hypertension, hyperlipidemia and insulin-dependent diabetes who presents to the emergency department with complaints of increasing shortness of breath over the last several days that seem to be worse yesterday and now today. Patient also has concern that the wounds in her legs have become infected as she has had drainage from these areas. Patient underwent CABG procedure 2 months ago. Denies any chest pain. Denies fever. Historical: - Allergies: 16:47 Codeine; mb9 16:47 Phenergan; mb9 16:47 Tape; mb9 - Home Meds: 16:47 amlodipine 10 mg tab 1 tab once daily [Active]; aspirin 81 mg Oral capsule daily mb9 [Active]; atorvastatin 40 mg Oral tab 1 tab every day at bedtime [Active]; BRILINTA 90 mg Oral tab 1 tab 2 times per day [Active]; bupropion HCl 75 mg Oral tablet 2 times per day [Active]; clopidogrel 75 mg Oral tablet daily [Active]; furosemide 80 mg Oral tab 1 tab once daily [Active]; Vitamin D Oral daily [Active]; sucralfate 1 gram Oral tab 1 tab 2 times per day [Active]; lisinopril 5 mg Oral tab 1 tab once daily [Active]; Wellbutrin XL 150 mg Oral Tb24 1 tab once daily [Active]; Synthroid 150 mcg Oral tablet 1 tab daily [Active]; Protonix 40 mg Oral TbEC 1 tab once daily [Active]; midodrine 10 mg Oral tab 1 tab 3 times per day [Active]; Humalog U-100 Insulin 100 unit/mL Sub-Q crtg 50 unit twice a day [Active]; Insulin: Regular Sub-Q [Active]; Lantus U-100 Insulin 100 unit/mL Sub-Q crtg [Active]; metoprolol tartrate 12.5 mg Oral tab 2 times per day [Active]; - PMHx: 16:47 Hypertension; Myocardial infarction; Hypothyroidism; Hypercholesterolemia; Diabetes - mb9 IDDM; Dialysis; - PSHx: 16:47 2 heart stents; back; Coronary artery bypass graft; section; knee; neck; mb9 - Immunization history:: Adult Immunizations up to date. - Social history:: Smoking status: Patient denies any tobacco usage or history of. ROS: 17:05 Constitutional: Negative for body aches, chills, fever, poor PO intake, cp 17:05 Eyes: Negative for injury, pain, redness, and discharge, cp 17:05 ENT: Negative for drainage from ear(s), ear pain, sore throat, difficulty swallowing, difficulty handling secretions, 17:05 Neck: Negative for pain with movement, pain at rest, stiffness, 17:05 Cardiovascular: Positive for edema, Negative for chest pain, 17:05 Respiratory: Positive for shortness of breath, at rest. 17:05 Abdomen/GI: Negative for abdominal pain, nausea and vomiting, diarrhea, constipation, 17:05 Skin: Positive for open wound to left upper leg and right upper leg and right heel, 17:05 Neuro: Negative for altered mental status, dizziness, headache, weakness, 17:05 All other systems are negative, Exam: 17:05 ECG was reviewed by the Attending Physician. cp 17:10 Constitutional: The patient appears alert, awake, non-diaphoretic, non-toxic, well cp developed, well nourished, obese, in obvious distress, mildly distressed, uncomfortable, 17:10 Head/Face: Normocephalic, atraumatic. cp 17:10 Eyes: Periorbital structures: appear normal, Conjunctiva: normal, no exudate, no injection, Sclera: no appreciated abnormality, Lids and lashes: appear normal, bilaterally, 17:10 ENT: External ear(s): are unremarkable, Nose: is normal, Mouth: Lips: moist, Oral mucosa: moist, Posterior pharynx: Airway: no evidence of obstruction, patent, 17:10 Neck: ROM/movement: is normal, is supple, without pain, no range of motions limitations, 17:10 Chest/axilla: Inspection: normal, 17:10 Cardiovascular: Rate: normal, Rhythm: regular, Edema: ankle edema, that is moderate, JVD: is not appreciated, 17:10 Respiratory: mild respiratory distress is noted, Respirations: labored breathing, that is mild, Breath sounds: decreased breath sounds, that are moderate, throughout, rhonchi, are not appreciated, stridor, is not appreciated, 17:10 Abdomen/GI: Inspection: abdomen appears normal, Palpation: abdomen is soft and non-tender, in all quadrants, 17:10 Back: CVA tenderness, is absent, 17:10 Skin: moderate size open wound noted to mid inner upper legs with erythema, dressings in place that have purulent drainage noted, right heel wound appears with mild erythema, scant drainage. 17:10 Neuro: Orientation: to person, place \T\ time. Mentation: is normal, Motor: moves all fours, strength is normal, Sensation: is normal, Vital Signs: 16:42 BP 140 / 75; Pulse 82; Resp 18; Temp 97.9; Pulse Ox 98% on R/A; Weight 106.59 kg; mb9 Height 5 ft. 6 in. ; 18:21 BP 113 / 66; Pulse 78; Resp 18; Pulse Ox 95% on R/A; mb9 19:59 BP 128 / 92; Pulse 79; Resp 24; Pulse Ox 98% ; rv 16:42 Body Mass Index 37.93 (106.59 kg, 167.64 cm) mb9 MDM: 16:45 Patient medically screened. cp 17:00 Differential diagnosis: Bronchitis CHF exacerbation, Chronic Obstructive Pulmonary cp Disease Myocardial Infarction pulmonary edema, Pulmonary Embolism Sepsis Unstable Angina. 19:45 Data reviewed: vital signs, nurses notes, lab test result(s), EKG, radiologic studies, cp plain films. 19:45 Consideration of Admission/Observation Patient was admitted/placed on observation. cp Management of patient was discussed with the following: Hospitalist: DR Larose will admit after discussion. I considered the following discharge prescriptions or medication management in the emergency department Medications were administered in the Emergency Department. See SEP. 06/14 16:52 Order name: CBC with Diff; Complete Time: 18:05 cp 06/14 18:06 Interpretation: Normal except: RBC 2.89; HGB 8.3; HCT 26.2; MCHC 31.8; PLT 86; RDW cp 19.8; TAMMI% 81.0; LYM% 9.7; BASO% 1.4; LYMA 0.4. 06/14 16:52 Order name: Magnesium; Complete Time: 18:05 06/14 16:52 Order name: NT PRO-BNP; Complete Time: 18:05 06/14 18:06 Interpretation: Abnormal: NT PRO-BNP > [id number]. 06/14 16:52 Order name: PT-INR; Complete Time: 18:05 06/14 18:07 Interpretation: Reviewed. 06/14 16:52 Order name: Troponin HS; Complete Time: 18:05 06/14 18:06 Interpretation: Abnormal: Troponin HS 70.8. 06/14 16:52 Order name: CMP; Complete Time: 18:05 06/14 18:07 Interpretation: Normal except: CO2 20; ANION GAP 17.9; GLUC 180; BUN 62; CRE 5.59; GFR cp 8; CA 8.2; ALB 2.9; GLOB 4.0; A/G 0.7. 06/14 17:59 Order name: CBC Smear Scan; Complete Time: 18:05 [facility] 06/14 19:55 Order name: Urinalysis w/ reflexes [facility] 06/14 19:55 Order name: CBC with Automated Diff [facility] 06/14 19:55 Order name: CBC with Automated Diff [facility] 06/14 19:55 Order name: Comprehensive Metabolic Panel [facility] 06/14 19:55 Order name: Comprehensive Metabolic Panel [facility] 06/14 16:52 Order name: XRAY Chest (1 view); Complete Time: 18:56 06/14 16:52 Order name: EKG; Complete Time: 16:53 06/14 19:55 Order name: CONS Physician Consult [facility] 06/14 16:52 Order name: Cardiac monitoring; Complete Time: 16:53 06/14 16:52 Order name: EKG - Nurse/Tech; Complete Time: 16:53 06/14 16:52 Order name: IV Saline Lock; Complete Time: 16:53 06/14 16:52 Order name: Labs collected and sent; Complete Time: 16:54 06/14 16:52 Order name: O2 Per Protocol; Complete Time: 16:54 cp 06/14 16:52 Order name: O2 Sat Monitoring; Complete Time: 16:54 cp EC:05 Rate is 81 beats/min. Rhythm is regular. MN interval is normal. QRS interval is cp prolonged at 106 msec. QT interval is prolonged. Interpreted by me. Reviewed by me. Administered Medications: 19:59 Drug: Furosemide IVP 40 mg IVP once; give over 2 minutes Route: IVP; Site: right rv forearm; 19:59 Drug: vancoMYCIN IVPB 1 grams IVPB once over 2 hrs Route: IVPB; Infused Over: 2 hrs; rv Site: right forearm; 19:59 Drug: Aspirin PO Chewable Tablet 324 mg PO once; 81 mg tablets x 4 Route: PO; rv Disposition Summary: 06/14/23 19:40 Hospitalization Ordered Notes: Hospitalization Status: Inpatient Admission cp Provider: Benjamin Larose cp Location: Telemetry/MedSurg (Inpatient) cp Condition: Fair cp Problem: an acute exacerbation cp Symptoms: have improved cp Bed/Room Type: Standard cp Room Assignment: 416(06/14/23 20:54) mb9 Diagnosis - Unspecified combined systolic (congestive) and diastolic (congestive) heart failure cp - Dyspnea cp Forms: - Medication Reconciliation Form cp - SBAR form cp - Leadership Thank You Letter cp Signatures: Dispatcher [employer] Simon Freedamn FNP-C [employer]-Cla1 Sukhi Dupree PA PA cp Braeden Grissom RN RN Adrianne Her RN RN mb9 Corrections: (The following items were deleted from the chart) 20:54 19:40 cp mb9 06/15 19:19 19:16 This 68 yrs old Female presents to ER via EMS with complaints of Shortness of cp Breath. cp 19:19 06/14 17:00 Patient is a 68-year-old female with past medical history significant for cp hypertension, hyperlipidemia and insulin-dependent diabetes who presents to the emergency department with complaints of increasing shortness of breath over the last several days that seem to be worse yesterday and now today. Patient also has concern that the wounds in her legs have become infected as she has had drainage from these areas. Patient underwent CABG procedure in May. Denies any chest pain. Denies fever. cp
[2023-06-14] MEDS ORDERED: ALBUTEROL 2.5 MG/3 ML NEB SOL NEB PRN ×2 (19:49→21:04)
[2023-06-14] MEDS ORDERED: ONDANSETRON 4 MG/2 ML VIAL IV PRN (19:49)
[2023-06-14] MEDS ORDERED: ACETAMINOPHEN 500 MG TAB PO PRN (19:49)
[2023-06-14] MEDS ORDERED: VANCOMYCIN 1 GM/VIAL ONE (19:58)
[2023-06-14] MEDS ORDERED: ASPIRIN 81 MG CHEWABLE TABLET ONE (19:58)
[2023-06-14] MEDS ORDERED: FUROSEMIDE 40 MG/4 ML VIAL ONE (19:58)
[2023-06-14] MEDS ORDERED: NA CHLORIDE 0.9% 250 ML ONE (19:59)
--- NOTE | 2023-06-14 20:06 | P.HP ---
Certification for Inpatient Patient admitted to: Inpatient With expected LOS: >2 Midnights Practitioner: I am a practitioner with admitting privileges, knowledge of patient current condition, hospital course, and medical plan of care. Services: Services provided to patient in accordance with Admission requirements found in Title 42 Section 412.3 of the Code of Federal Regulations Patient History Date of Service: 06/14/23 Reason for admission: Shortness of breath History of Present Illness: 68-year-old female with past medical history of hypertension, diabetes, ESRD on dialysis, CAD, status post CABG, status post PCI, CHF, PAD, wound infection of lower extremities , brought to ER with shortness of breath. Patient missed dialysis yesterday but had dialysis on Sunday. Started having shortness of breath since yesterday and has been progressively worsening. Associated with mild chest discomfort. No fever or chills. No nausea vomiting or diarrhea. States shortness of breath is progressively worsening she was brought to ER. Patient was assessed in the ER and was found to have pulmonary edema and is admitted for further management. Chest x-ray was consistent with pulmonary edema along with very highly elevated BNP and elevated renal parameters Allergies codeine Allergy (Intermediate, Verified 08/04/22 13:31) Itching promethazine [From Phenergan] Allergy (Intermediate, Verified 08/04/22 13:31) Itching adhesive tape Adverse Reaction (Verified 08/04/22 13:31) Itching/Hives/Rash Home medications list reviewed: Yes Home Medications: Metoprolol Succinate [Toprol Xl*] 12.5 mg PO BID 6AM 6PM tab 06/21/22 Silver Sulfadiazine Crm [Silvadene*] 1 appl TOP BID #1 jar 02/02/23 Nystatin Cream [Mycostatin 100MU/Gm Cream*] 1 appl TOP BID #1 tube 04/25/23 Levothyroxine Sodium [Synthroid] 150 mcg PO [id number] 05/09/23 Amiodarone HCl [Cordarone*] 200 mg PO DAILY 05/14/23 Ascorbic Acid/Ascorbate Sodium [Vitamin C 500 mg Tablet Chew] 1,000 mg PO DAILY 05/14/23 Aspirin [Aspirin EC 81 MG] 81 mg PO DAILY 05/14/23 Buspirone HCl [Buspar*] 1 tab PO BID 05/14/23 Cetirizine HCl [All Day Allergy Relief] 1 tab PO DAILY 05/14/23 Docusate Sodium 100 mg PO DAILY PRN 05/14/23 Fenofibrate,Micronized [Fenofibrate] 200 mg PO DAILY 05/14/23 Multivit-Min/Iron/FA/Vit K/Lut [Centrum Women 50 Plus Minis Tb] 2 tab PO DAILY 05/14/23 Sacubitril/Valsartan [Entresto 24 mg-26 mg Tablet] 0.5 tab PO BID 05/14/23 Albuterol Neb [Proventil 0.083% Neb Soln] 2.5 mg NEB [id number] PRN amp 05/24/23 Amino Acids/Protein Hydrolys [Prosource No Carb Liquid Pkt] 30 ml PO BID packet 05/24/23 Amlodipine [Norvasc*] 5 mg PO DAILY tab 05/24/23 Apixaban [Eliquis *] 2.5 mg PO BID 05/24/23 Atorvastatin Calcium [Lipitor] 40 mg PO BEDTIME tab 05/24/23 Bupropion Hcl [Wellbutrin] 1 tab PO BID 05/24/23 Clopidogrel Bisulfate [Plavix*] 75 mg PO DAILY 05/24/23 Collagenase [Santyl Ointment*] 1 appl TOP DAILY #1 tube 05/24/23 Epoetin [Retacrit] 10,000 unit IV EVERY HD vial 05/24/23 Loratadine [Claritin*] 10 mg PO DAILY PRN tab 05/24/23 Mupirocin Oint [Bactroban 2% Ointment*] 1 appl TOP BID tube 05/24/23 Pantoprazole [Protonix Tab*] 40 mg PO DAILY tab 05/24/23 - Past Medical/Surgical History Diabetic: Yes Past Medical History: Reviewed- Non-Contributory -: IDDM -: Hypertension -: Hypothyroidism -: ESRD HD MWF -: hyperlipidemia -: depression -: Paralyzed Stomach -: Neuropathy -: CAD Past Surgical History: Reviewed- Non-Contributory -: Back fusion -: bilateral total knee replacements -: bilateral carpal tunnel sx -: c section -: thyroidectomy -: neck fusion -: PD Cath then removed -: Cholecystectomy Psychosocial/ Personal History: Patient lives at [facility]. - Family History Family History: Reviewed- Non-Contributory - Family History Mother -: Heart disease, Hypertension, Lung disease, Cancer Notes: breast ca Father -: Heart disease, Hypertension, Other (see notes) Notes: Alzheimer's - Social History Smoking Status: Never smoker Alcohol use: No CD- Drugs: No Caffeine use: Yes Physical Examination - Vital Signs Temperature: 98.2 F Blood Pressure: 168/94 Pulse: 78 Respirations: 18 Pulse Ox (%): 94 - Physical Exam General: Alert, Oriented x3, Moderate distress HEENT: Atraumatic, Normocephalic Neck: Supple, No Thyromegaly Respiratory: Diminished, Crackles/rales, Expiratory wheezes Cardiovascular: Normal pulses, Regular rate/rhythm, Normal S1 S2 Capillary refill: <2 Seconds Gastrointestinal: Soft and benign, W/out hepatosplenomegaly, No rebound Musculoskeletal: No clubbing, Swelling Integumentary: Tenderness/swelling, Erythema Neurological: Normal speech, Other (Alert, Awake , Non focal ) Lymphatics: No axilla or inguinal lymphadenopathy - Studies Laboratory Data (last 24 hrs) 06/14/23 06/14/23 06/14/23 17:02 17:02 17:02 WBC 4.30 Hgb 8.3 L Hct 26.2 L Plt Count 86 L PT 14.9 H INR 1.37 Sodium 139 Potassium 3.9 BUN 62 H Creatinine 5.59 H Glucose 180 H Magnesium 1.8 Total Bilirubin 0.9 AST 32 ALT 21 Alkaline Phosphatase 70 Assessment and Plan - Problems (Diagnosis) (1) Pulmonary edema Current Visit: Yes Status: Acute Plan: Gross pulmonary edema noted on chest x-ray Will start on Lasix IV Patient had missed dialysis Nephrology consulted for dialysis (2) NSTEMI (non-ST elevated myocardial infarction) Current Visit: No Status: Acute Plan: History of CAD status post CABG and stents Continue home medications and titrate as needed Monitor closely on telemetry Cardiac enzymes trended Will get a cardiology consult if cardiac enzymes trended high Started on aspirin statin (3) Anemia in chronic kidney disease Current Visit: No Status: Chronic Plan: CBC monitored Transfuse as needed Denies any overt bleeding Qualifiers: Chronic kidney disease stage: on chronic dialysis Qualified Code(s): N18.6 - End stage renal disease; D63.1 - Anemia in chronic kidney disease; Z99.2 - Dependence on renal dialysis (4) ESRD (end stage renal disease) Current Visit: No Status: Chronic Plan: Patient is on hemodialysis on Sunday Missed dialysis Will consult nephrology (5) Obesity Current Visit: No Status: Chronic Plan: Advise lifestyle modification Qualifiers: Obesity type: due to excess calories Obesity classification: adult class 3 (BMI >= 40) Serious obesity comorbidity presence: with serious comorbidity Body mass index: unspecified BMI Qualified Code(s): E66.01 - Morbid (severe) obesity due to excess calories (6) Type 2 diabetes mellitus Current Visit: No Status: Chronic Plan: Diabetes with hyperglycemia Insulin sliding scale Accu-Chek before every meal and at bedtime Will get an A1c Qualifiers: Diabetes mellitus senior living insulin use: with senior living use Diabetes m ellitus complication status: with hyperglycemia Qualified Code(s): E11.65 - Type 2 diabetes mellitus with hyperglycemia; Z79.4 - senior care (current) use of insulin (7) Wound of lower extremity Current Visit: Yes Status: Acute Plan: Will start on antibiotic Pain control Will consult surgery if needed Discharge Plan: Home Plan to discharge in: Greater than 2 days - Advance Directives Does patient have a Living Will: No Does patient have a Durable POA for Healthcare: No - Code Status/Comfort Care Code Status: Full Code Time Spent Managing Pts Care (In Minutes): 48
[2023-06-14] MEDS ORDERED: DOCUSATE NA 100 MG CAP PO PRN (21:04)
[2023-06-14] MEDS: MORPHINE 2 MG/ML SYR IV PRN (22:08)
[2023-06-14] MEDS ORDERED: MORPHINE 2 MG/ML SYR ONE (22:25)
[2023-06-14] MEDS ORDERED: VANCOMYCIN 1 GM in NA CHLORIDE 0.9% 250 ML IVPB ONE (23:00)
[2023-06-15] MEDS ORDERED: NA CHLORIDE 0.9% 250 ML ONE (00:28)
[2023-06-15] MEDS ORDERED: VANCOMYCIN 1 GM/VIAL ONE (00:29)
[2023-06-15] MEDS: FUROSEMIDE 40 MG/4 ML VIAL IV SCH ×3 (00:35→17:00)
[2023-06-15] MEDS: HYDROCODONE/APAP 10/325 TAB PO PRN ×3 (00:43→18:20)
[2023-06-15] MEDS: MORPHINE 2 MG/ML SYR IV PRN ×3 (02:19→23:44)
[2023-06-15 02:34] VITALS: BMI 37.9
[2023-06-15] MEDS: LEVOTHYROXINE SOD 0.075 MG TAB PO SCH (06:13)
[2023-06-15] MEDS: METOPROLOL XL 25 MG TAB PO SCH ×2 (06:14→18:00)
[2023-06-15 07:42] LABS: Absolute Lymphocytes (CBC) 0.6 K/uL (0.7-4.9); Hematocrit 26.9 % (36.0-45.0); Lymphocytes % 10.6 % (15.3-44.8); MCV 92.1 fL (80-100); MPV 9.6 fL (7.6-11.3); Platelets 85 thou/uL (152-406); RBC Red Blood Cell Count 2.92 M/uL (3.86-4.86)
[2023-06-15 08:02] LABS: Albumin 2.6 g/dL (3.4-5.0); Bilirubin Total 0.8 mg/dL (0.2-1.0); Potassium 4.1 mEq/L (3.5-5.1); Protein, Total 6.4 g/dL (6.4-8.2)
[2023-06-15] MEDS: ASCORBIC ACID 500 MG TABLET PO SCH (09:00)
[2023-06-15] MEDS: SACUBITRIL/VALSARTAN 24/26 MG TAB PO SCH ×2 (09:00→19:48)
[2023-06-15] MEDS: MULTIVITAMIN TAB PO SCH (09:00)
[2023-06-15] MEDS: ASPIRIN EC 81 MG TAB PO SCH (09:00)
[2023-06-15] MEDS: CLOPIDOGREL 75 MG TABLET PO SCH (09:00)
[2023-06-15] MEDS: PANTOPRAZOLE 40MG TABLET PO SCH (09:00)
[2023-06-15] MEDS: HOME MED 1 EA UNK (Fenofibrate,Micronized [Fenofibrate] 200 MG Capsule) PO SCH (09:00)
[2023-06-15] MEDS: AMIODARONE HCL 200 MG TAB PO SCH (09:00)
[2023-06-15] MEDS: AMLODIPINE 5 MG TAB PO SCH (09:00)
[2023-06-15] MEDS: CEFTRIAXONE 1,000 MG in NA CHLORIDE 0.9% 50 ML IVPB SCH (09:40)
--- NOTE | 2023-06-15 12:53 | P.PN ---
Subjective Date of Service: 06/15/23 Chief Complaint: Shortness of breath Pt is resting comfortably in bed. She is NPO for I&D by gen surgery. Still getting iv abx. She had hypoglycemia this am that was corrected with 1 amp of D50. No other complaints. Review of Systems 10-point ROS is otherwise unremarkable General: Unremarkable Eyes: Unremarkable ENT: Unremarkable Respiratory: Unremarkable Cardiovascular: Unremarkable Gastrointestinal: Unremarkable Genitourinary: Unremarkable Musculoskeletal: Unremarkable Integumentary: Lesions Neurological: Unremarkable Lymphatics: Unremarkable Physical Examination - Vital Signs Temperature: 96.8 F Blood Pressure: 114/46 Pulse: 62 Respirations: 14 Pulse Ox (%): 98 - Physical Exam General: Alert, In no apparent distress, Oriented x3 HEENT: Atraumatic, Normocephalic, PERRLA Neck: Supple, 2+ carotid pulse no bruit Respiratory: Clear to auscultation bilaterally, Normal air movement Cardiovascular: No edema, Normal pulses, Normal S1 S2 Capillary refill: <2 Seconds Gastrointestinal: Normal bowel sounds, Soft and benign, Non-distended Musculoskeletal: No clubbing, No swelling Integumentary: Skin lesion Neurological: Normal gait, Normal speech, Normal strength at 5/5 x4 extr Lymphatics: No axilla or inguinal lymphadenopathy - Studies Laboratory Data (last 24 hrs) 06/14/23 06/14/23 06/14/23 17:02 17:02 17:02 WBC 4.30 Hgb 8.3 L Hct 26.2 L Plt Count 86 L PT 14.9 H INR 1.37 Sodium 139 Potassium 3.9 BUN 62 H Creatinine 5.59 H Glucose 180 H Magnesium 1.8 Total Bilirubin 0.9 AST 32 ALT 21 Alkaline Phosphatase 70 Assessment And Plan - Plan Pulm edema: Pt missed her dialysis last sunday. Will give iv lasix and monitor respiratory status. ESRD on HD: Will consult Nephrology for HD. Elevated BNP: BNP is [id number], likely due to ESRD. Will follow up Echo Elevated troponin: troponin is 70. Will r/o ACS. Pt denies any chest pain. Likely due to ESRD. Bilateral leg wound: Pt is NPO for the scheduled I&D. Will continue iv abx and follow up cultures Obesity: Pt was advised to lose weight. DM II: Continue accuchek, SSI and ADA diet after surgery. pt had hypoglycemia that was corrected with hypoglycemia protocol. Anemia of chronic disease: Will monitor H/H. Hgb is 8.3 DVT ppx: SCD Code: full Discharge Plan: Home Plan to discharge in: 48 Hours - Code Status/Comfort Care Code Status Assessed: Yes
[2023-06-15] MEDS ORDERED: D10W 250 ML BAG IV ONE (13:00)
[2023-06-15] MEDS ORDERED: ALBUMIN HUMAN 25% 100 ML IV ONE (14:07)
--- NOTE | 2023-06-15 16:24 | P.CNS ---
Date of Consult: 06/15/23 Reason for Consult: ESRD Requesting Physician: Haim Morales Chief Complaint: Shortness of breath History of Present Illness: 68F with past medical history of ESRD on HD MWF, hypertension, diabetes, CAD status post CABG status post PCI, CHF, PAD, & wound infection of lower extremities, who p/w shortness of breath & chest pain. Missed her HD 2 days ago. CXR showed pulmo edema. BNP elevated. Admittted for further eval & mngt. Received HD today. Allergies codeine Allergy (Intermediate, Verified 08/04/22 13:31) Itching promethazine [From Phenergan] Allergy (Intermediate, Verified 08/04/22 13:31) Itching adhesive tape Adverse Reaction (Verified 08/04/22 13:31) Itching/Hives/Rash Home Medications: Metoprolol Succinate [Toprol Xl*] 12.5 mg PO BID 6AM 6PM tab 06/21/22 Silver Sulfadiazine Crm [Silvadene*] 1 appl TOP BID #1 jar 02/02/23 Nystatin Cream [Mycostatin 100MU/Gm Cream*] 1 appl TOP BID #1 tube 04/25/23 Levothyroxine Sodium [Synthroid] 150 mcg PO [id number] 05/09/23 Amiodarone HCl [Cordarone*] 200 mg PO DAILY 05/14/23 Ascorbic Acid/Ascorbate Sodium [Vitamin C 500 mg Tablet Chew] 1,000 mg PO DAILY 05/14/23 Aspirin [Aspirin EC 81 MG] 81 mg PO DAILY 05/14/23 Buspirone HCl [Buspar*] 1 tab PO BID 05/14/23 Cetirizine HCl [All Day Allergy Relief] 1 tab PO DAILY 05/14/23 Docusate Sodium 100 mg PO DAILY PRN 05/14/23 Fenofibrate,Micronized [Fenofibrate] 200 mg PO DAILY 05/14/23 Multivit-Min/Iron/FA/Vit K/Lut [Centrum Women 50 Plus Minis Tb] 2 tab PO DAILY 05/14/23 Sacubitril/Valsartan [Entresto 24 mg-26 mg Tablet] 0.5 tab PO BID 05/14/23 Albuterol Neb [Proventil 0.083% Neb Soln] 2.5 mg NEB [id number] PRN amp 05/24/23 Amino Acids/Protein Hydrolys [Prosource No Carb Liquid Pkt] 30 ml PO BID packet 05/24/23 Amlodipine [Norvasc*] 5 mg PO DAILY tab 05/24/23 Apixaban [Eliquis *] 2.5 mg PO BID 05/24/23 Atorvastatin Calcium [Lipitor] 40 mg PO BEDTIME tab 05/24/23 Bupropion Hcl [Wellbutrin] 1 tab PO BID 05/24/23 Clopidogrel Bisulfate [Plavix*] 75 mg PO DAILY 05/24/23 Collagenase [Santyl Ointment*] 1 appl TOP DAILY #1 tube 05/24/23 Epoetin [Retacrit] 10,000 unit IV EVERY HD vial 05/24/23 Loratadine [Claritin*] 10 mg PO DAILY PRN tab 05/24/23 Mupirocin Oint [Bactroban 2% Ointment*] 1 appl TOP BID tube 05/24/23 Pantoprazole [Protonix Tab*] 40 mg PO DAILY tab 05/24/23 - Past Medical/Surgical History Diabetic: Yes -: IDDM -: Hypertension -: Hypothyroidism -: ESRD HD MWF -: hyperlipidemia -: depression -: Paralyzed Stomach -: Neuropathy -: CAD -: Back fusion -: bilateral total knee replacements -: bilateral carpal tunnel sx -: c section -: thyroidectomy -: neck fusion -: PD Cath then removed -: Cholecystectomy Psychosocial/ Personal History: Patient lives at [facility]. - Family History Mother Medical History: Heart disease, Hypertension, Lung disease, Cancer Notes: breast ca Father Medical History: Heart disease, Hypertension, Other (see notes) Notes: Alzheimer's - Social History Smoking Status: Former smoker Alcohol use: No CD- Drugs: No Caffeine use: Yes Place of Residence: Home Review of Systems General: Weakness Eyes: Unremarkable ENT: Unremarkable Respiratory: Shortness of Breath, SOB with Excertion Cardiovascular: Chest Pain Gastrointestinal: Unremarkable Genitourinary: Unremarkable Musculoskeletal: Unremarkable Integumentary: Other (has leg wounds) Neurological: Weakness Lymphatics: Unremarkable Physical Examination Temp Pulse Resp BP Pulse Ox 96.8 F 62 14 114/46 L 98 06/15/23 13:23 06/15/23 13:23 06/15/23 13:23 06/15/23 13:23 06/15/23 13:23 General: Other (chronically ill-appearing) HEENT: Atraumatic, Normocephalic Neck: Supple Respiratory: Other (symmetric chest expansion) Cardiovascular: No rubs, No murmurs Gastrointestinal: Soft and benign, No guarding Musculoskeletal: No clubbing Integumentary: No warmth, Skin breakdown Neurological: Normal tone Urinary: Other (no bladder distention) External genitalia: Deferred Rectal: Deferred Laboratory Data (last 24 hrs) 06/14/23 06/14/23 06/14/23 17:02 17:02 17:02 WBC 4.30 Hgb 8.3 L Hct 26.2 L Plt Count 86 L PT 14.9 H INR 1.37 Sodium 139 Potassium 3.9 BUN 62 H Creatinine 5.59 H Glucose 180 H Magnesium 1.8 Total Bilirubin 0.9 AST 32 ALT 21 Alkaline Phosphatase 70 Conclusions/Impression: 1. End-stage renal disease on HD MWF. Received HD today. 2. Secondary hyperparathyroidism, stable. We will continue supplement. 3. Congestive heart failure with exacerbation. HD as above. 4. Chest pain. Per other services. 5. Anemia. Monitor CBC. 6. Renal osteodystrophy. Monitor Ca & Phos.
[2023-06-15 16:35] LABS: Hepatitis B surface AG Interp. Nonreactive (Nonreactive)
[2023-06-15] MEDS ORDERED: VANCOMYCIN 1 GM in NA CHLORIDE 0.9% 250 ML IVPB SCH (17:00)
[2023-06-15] MEDS: ATORVASTATIN 40 MG TAB PO SCH (19:48)
[2023-06-15] MEDS: DIPHENHYDRAMINE 25 MG TAB/CAP PO PRN (23:44)
[2023-06-16] MEDS: FUROSEMIDE 40 MG/4 ML VIAL IV SCH ×3 (00:41→18:19)
[2023-06-16] MEDS: MORPHINE 2 MG/ML SYR IV PRN ×3 (04:48→20:11)
[2023-06-16] MEDS: LEVOTHYROXINE SOD 0.075 MG TAB PO SCH (04:48)
[2023-06-16] MEDS: METOPROLOL XL 25 MG TAB PO SCH ×2 (04:48→18:00)
[2023-06-16] MEDS: MULTIVITAMIN TAB PO SCH (09:00)
[2023-06-16] MEDS: HOME MED 1 EA UNK (Fenofibrate,Micronized [Fenofibrate] 200 MG Capsule) PO SCH (09:00)
[2023-06-16] MEDS: CLOPIDOGREL 75 MG TABLET PO SCH (09:00)
[2023-06-16] MEDS: AMIODARONE HCL 200 MG TAB PO SCH (09:00)
[2023-06-16] MEDS: AMLODIPINE 5 MG TAB PO SCH (09:00)
[2023-06-16] MEDS: PANTOPRAZOLE 40MG TABLET PO SCH (09:00)
[2023-06-16] MEDS: ASCORBIC ACID 500 MG TABLET PO SCH (09:00)
[2023-06-16] MEDS: SACUBITRIL/VALSARTAN 24/26 MG TAB PO SCH ×2 (09:00→20:10)
[2023-06-16] MEDS: ASPIRIN EC 81 MG TAB PO SCH (09:00)
[2023-06-16] MEDS: CEFTRIAXONE 1,000 MG in NA CHLORIDE 0.9% 50 ML IVPB SCH (09:24)
[2023-06-16] MEDS ORDERED: BUPIVACAINE 0.25% PF 30 ML VIAL ONE (09:29)
[2023-06-16] MEDS ORDERED: NA CHLORIDE 0.9% 1,000 ML ONE (09:47)
[2023-06-16] MEDS ORDERED: SUCCINYLCHOLINE 20 MG/ML (10 ML) IV ONE (10:03)
[2023-06-16] MEDS ORDERED: propofoL 200 MG/20 ML VIAL IV ONE (10:07)
[2023-06-16] MEDS ORDERED: FENTANYL CITR 100 MCG/2 ML ONE (10:07)
--- NOTE | 2023-06-16 10:31 | P.PN ---
Subjective Date of Service: 06/16/23 Chief Complaint: Shortness of breath Pt is resting comfortably in bed. Gen surgery will do I&D today. Still getting iv abx. No other complaints. Review of Systems 10-point ROS is otherwise unremarkable General: Unremarkable Eyes: Unremarkable ENT: Unremarkable Respiratory: Unremarkable Cardiovascular: Unremarkable Gastrointestinal: Unremarkable Genitourinary: Unremarkable Musculoskeletal: Unremarkable Integumentary: Unremarkable Neurological: Unremarkable Lymphatics: Unremarkable Physical Examination - Vital Signs Temperature: 97.6 F Blood Pressure: 105/56 Pulse: 71 Respirations: 16 Pulse Ox (%): 97 - Physical Exam General: Alert, In no apparent distress, Oriented x3, Cooperative HEENT: Atraumatic, Normocephalic, PERRLA Neck: Supple, 2+ carotid pulse no bruit Respiratory: Clear to auscultation bilaterally, Normal air movement Cardiovascular: No edema, Normal pulses Capillary refill: <2 Seconds Gastrointestinal: Normal bowel sounds, Soft and benign, Non-distended Musculoskeletal: No clubbing, No swelling Integumentary: No rashes, No breakdown Neurological: Normal gait, Normal speech, Normal strength at 5/5 x4 extr Lymphatics: No axilla or inguinal lymphadenopathy Assessment And Plan - Plan Pulm edema: Pt missed her dialysis last sunday. Will give iv lasix and monitor respiratory status. ESRD on HD: Pt had HD on 06/15/23. Nephrology is following. Elevated BNP: BNP is [id number], likely due to ESRD. Will follow up Echo Elevated troponin: troponin is 70. Will r/o ACS. Pt denies any chest pain. Likely due to ESRD. Bilateral leg wound: Gen surgery will do I&D today. Will continue iv abx and follow up cultures Obesity: Pt was advised to lose weight. DM II: Continue accuchek, SSI and ADA diet. Anemia of chronic disease: Will monitor H/H. Hgb is 8.5 DVT ppx: SCD Code: full
[2023-06-16] MEDS ORDERED: EPHEDRINE SULF 50 MG/ML VIAL ONE (10:39)
--- NOTE | 2023-06-16 10:48 | P.OP ---
Preoperative diagnosis: RIGHT inner thigh abscess, heel pressure wound, LEFT lower leg wound Postoperative diagnosis: RIGHT inner thigh abscess, heel pressure wound, LEFT lower leg wound Primary procedure: Debridement of RIGHT inner thigh abscess, heel pressure wound, Secondary procedure: Debridment of LEFT lower leg wound Anesthesia: MAC + Local Estimated blood loss: <10cc Specimen: Cultures, Debridement Tissue Findings: RIGHT inner thigh abscess heel pressure wound, LEFT lower leg wound, Transferred to: Recovery Room Condition: Good
[2023-06-16] MEDS: FENTANYL CITR 100 MCG/2 ML ONE ×2 (11:18→11:23)
[2023-06-16] MEDS ORDERED: KETOROLAC 30 MG/ML INJ ONE (11:20)
--- NOTE | 2023-06-16 11:43 | PN ---
Date of Progress Note: 06/16/2023 Subjective: The patient was admitted to the hospital with the overvolume. The patient had multiple wounds, needed I and D, planned for I and D today. Objective: Vital Signs: Blood pressure 105/56, pulse of 70, afebrile. Chest: Faint rales, bilateral. Heart: S1, S2. Systolic murmur. Abdomen: Soft, nontender. Extremities: Trace edema. MTA; multiple wounds on both legs with dressing. We will follow up. Neurologic: Alert. No focality. Laboratory Data: Hemoglobin 7.5, sodium 139, potassium 4.1, bicarb 21, BUN 69, creatinine 5.1, calcium 7.6. Current Medications: The patient on, it includes ceftriaxone, vancomycin, albuterol, Plavix, amiodarone, atorvastatin, Entresto, pantoprazole, levothyroxine. Assessment And Plan: 1. End-stage renal disease, overvolume, status post dialysis yesterday. We managed to remove 3 L, recovered very well. The patient cleared from the Renal standpoint for surgery today. 2. Hypertension, currently on the lower side. Hold all blood pressure medication. 3. Overvolume. Patient still on the wet side. We will continue to challenge the patient on dialysis. 4. Anemia of chronic kidney disease. I am going to go ahead and resume her Retacrit. 5. Multiple wounds, need I and D. We will follow up with Surgery. Continue antibiotic. Follow up with ID. time spend exam the patient face to face reviweing data lab and radiology , placing order , disccussing the case with the assembler steam and gas turbine including hopsitalist and nursing staff >35 min CR Voice ID: [id number] Report ID: [id number] ASHOK
--- NOTE | 2023-06-16 11:46 | OP ---
Date of Procedure: 06/16/2023 Surgeon: Avtar Peterson MD, Preoperative Diagnoses: 1.Right inner thigh abscess. 2.Right heel pressure wound. 3.Left lower leg chronic wound. Postoperative Diagnoses: 1.Right inner thigh abscess. 2.Right heel pressure wound. 3.Left lower leg chronic wound. Procedure Performed: 1.Debridement of right inner thigh abscess. 2.Debridement of right heel pressure wound. 3.Debridement of left lower leg recurrent chronic wound. Anesthesia: MAC plus local with 0.25% Marcaine. Estimated Blood Loss: Less than 10 cc. Specimen: Culture sent for aerobic and anaerobic speciation from the right upper thigh and debrideme nt tissue. Findings: 1.The right inner thigh abscess was noted, which was approximately 4 cm in size down in the subcutan eous fat abutting the muscular fascial plane but not including it. 2.A right heel recurrent pressure wound with necrosis down to and abutting the bone but not involvin g it. 3.Left lower leg wound approximately 5 cm x 1 cm consistent with a previous vein harvest. Disposition: The patient transferred to recovery room in good condition. Procedure In Detail: After informed consent was obtained, the patient prepped and draped in the usua l sterile fashion. After adequate anesthesia was achieved, the patient had the area of the right thi gh anesthetized appropriately with 0.25% Marcaine, sharply incised down through subcutaneous tissues with a 15 blade in elliptical fashion. Abscess material was immediately encountered. This was cultu red for both aerobic and anaerobic speciation. After the ellipse of tissue was taken down into the s ubcutaneous plane, I used electrocautery to dissect circumferentially down through the adipose tissue into and abutting the muscular fascial plane but not involving it. This was removed. The area was copiously irrigated. Venous tributaries were encountered at this point. There were suture ligated w ith a 3-0 Vicryl suture with good hemostasis at this point. The wound was then packed with Vashe soa ked Kerlix and a sterile dressing placed over top. This portion of leg was wrapped with an Fawad escalante ge. At this point, I turned my attention to the right heel. This had some obvious necrosis from pre ssure effect as the patient had been recumbent after her CABG surgery for some period of time. Ultim ately, I debrided this nonviable tissue down to the fascia overlying the bone, but not involving it, using a curette. Bleeding tissue was encountered. This wound was then wrapped with Vashe soaked gau ze, Kerlix, Fawad, and fluffs. Pressure reduction strategies will be employed. I then turned my atten tion to the left lower extremity medial thigh chronic wound, which is from previous vein harvest. Vi sible sutures were evident in this area from the ligation of the saphenous vein. I debrided all necr otic nonviable tissue using a combination of sharp dissection and curette circumferentially around th is area down to good viable tissue. The sutures remained intact and were not violated. At this poin t, I irrigated the area copiously and then packed the wound with Vashe soaked gauze and a sterile brenda ssing placed over top along with Fawad bandage. The patient tolerated the procedure well without evide nce of complication and was transferred to PACU in good condition. All counts were correct at the en d of the case. SOCRATES/RENÉ Voice ID: [id number] Report ID: [id number]
[2023-06-16] MEDS ORDERED: VANCOMYCIN 1 GM in NA CHLORIDE 0.9% 250 ML IVPB SCH (17:00)
[2023-06-16] MEDS: ATORVASTATIN 40 MG TAB PO SCH (20:11)
[2023-06-16] MEDS: DIPHENHYDRAMINE 25 MG TAB/CAP PO PRN (20:11)
[2023-06-17] MEDS: FUROSEMIDE 40 MG/4 ML VIAL IV SCH ×3 (00:38→17:36)
[2023-06-17] MEDS: MORPHINE 2 MG/ML SYR IV PRN ×3 (00:39→21:13)
[2023-06-17] MEDS: HYDROCODONE/APAP 10/325 TAB PO PRN ×3 (02:54→17:35)
[2023-06-17] MEDS: LEVOTHYROXINE SOD 0.075 MG TAB PO SCH (05:10)
[2023-06-17] MEDS: METOPROLOL XL 25 MG TAB PO SCH ×2 (05:10→17:35)
[2023-06-17 07:55] LABS: Absolute Lymphocytes (CBC) 0.6 K/uL (0.7-4.9); Hematocrit 27.9 % (36.0-45.0); Lymphocytes % 12.1 % (15.3-44.8); MCV 92.8 fL (80-100); MPV 9.7 fL (7.6-11.3); Platelets 103 thou/uL (152-406); RBC Red Blood Cell Count 3.01 M/uL (3.86-4.86)
[2023-06-17] MEDS: CEFTRIAXONE 1,000 MG in NA CHLORIDE 0.9% 50 ML IVPB SCH (08:09)
[2023-06-17] MEDS: SACUBITRIL/VALSARTAN 24/26 MG TAB PO SCH ×2 (08:10→21:13)
[2023-06-17] MEDS: CLOPIDOGREL 75 MG TABLET PO SCH (08:10)
[2023-06-17] MEDS: ASCORBIC ACID 500 MG TABLET PO SCH (08:11)
[2023-06-17] MEDS: AMIODARONE HCL 200 MG TAB PO SCH (08:11)
[2023-06-17] MEDS: ASPIRIN EC 81 MG TAB PO SCH (08:11)
[2023-06-17] MEDS: PANTOPRAZOLE 40MG TABLET PO SCH (08:11)
[2023-06-17] MEDS: MULTIVITAMIN TAB PO SCH (08:12)
[2023-06-17] MEDS: AMLODIPINE 5 MG TAB PO SCH (08:13)
[2023-06-17 09:59] LABS: Albumin 2.8 g/dL (3.4-5.0); Phosphorus 8.3 mg/dL (2.5-4.9)
[2023-06-17 10:00] LABS: Potassium 3.8 mEq/L (3.5-5.1)
--- NOTE | 2023-06-17 10:35 | PN ---
Date of Progress Note: 06/17/2023 Subjective: The patient was admitted with multiple ulcers and abscesses on the thigh. The patient is status post I and D yesterday. The patient tolerated that procedure. Physical Examination: Vital Signs: Blood pressure 106/50, pulse of 66, afebrile. Chest: Clear to auscultation. Heart: S1, S2. Systolic murmur. Abdomen: Soft, nontender. Extremities: Dressing on both thighs. No edema. Neurologic: Alert. No focality. Laboratory Data: Hemoglobin 8.7, sodium 139, potassium 4.1, bicarb 21, BUN 69, creatinine 5.9, calcium 7.6. Current Medications: The patient on, it includes, ceftriaxone, vancomycin, heparin, Plavix, Epogen, atorvastatin, amlodipine, levothyroxine, Lasix, Entresto. Assessment And Plan: 1. End-stage renal disease. We will continue the patient on dialysis. Patient is going to continue to her schedule Sunday, Sunday, Sunday. I am going to arrange for dialysis to follow and we will follow up the patient. 2. Hypertension. We will utilize blood pressure for more ultrafiltration. I am going to go ahead and DC amlodipine. 3. Anemia of chronic kidney disease. Continue to monitor her phosphorous. We will follow up. Continue XENIA. 4. Secondary hyperparathyroidism. We will follow up phosphorous. 5. Multiple ulcers and abscesses, status post I and D. Continue antibiotic. Follow up with Surgery and ID. time spend exam the patient face to face reviweing data lab and radiology , placing order , disccussing the case with the seam steamer including hopsitalist and nursing staff >35 min CR Voice ID: [id number] Report ID: [id number] ASHOK
--- NOTE | 2023-06-17 11:26 | P.PN ---
Subjective Date of Service: 06/17/23 Chief Complaint: Shortness of breath Pt is resting comfortably in bed. Gen surgery did I&D on 06/16/23. Still getting iv abx. No other complaints. Review of Systems 10-point ROS is otherwise unremarkable General: Unremarkable Eyes: Unremarkable ENT: Unremarkable Respiratory: Unremarkable Cardiovascular: Unremarkable Gastrointestinal: Unremarkable Genitourinary: Unremarkable Musculoskeletal: Unremarkable Integumentary: Unremarkable Neurological: Unremarkable Lymphatics: Unremarkable Physical Examination - Vital Signs Temperature: 97.8 F Blood Pressure: 106/50 Pulse: 66 Respirations: 16 Pulse Ox (%): 97 - Physical Exam General: Alert, In no apparent distress, Oriented x3 HEENT: Atraumatic, Normocephalic, PERRLA Neck: Supple, 2+ carotid pulse no bruit Respiratory: Clear to auscultation bilaterally, Normal air movement Cardiovascular: No edema, Normal pulses, Normal S1 S2 Capillary refill: <2 Seconds Gastrointestinal: Normal bowel sounds, Soft and benign, Non-distended Musculoskeletal: No clubbing, No swelling Integumentary: No rashes, No breakdown Neurological: Normal gait, Normal speech, Normal strength at 5/5 x4 extr Lymphatics: No axilla or inguinal lymphadenopathy Assessment And Plan - Plan Pulm edema: Pt missed dialysis on 06/13/23. Will continue iv lasix and monitor respiratory status. ESRD on HD: Pt had HD on 06/15/23. Nephrology is following. Rowan 5.36 Elevated BNP: BNP is [id number], likely due to ESRD. Will follow up Echo Elevated troponin: troponin is 70. Will r/o ACS. Pt denies any chest pain. Likely due to ESRD. Bilateral leg wound: Gen surgery did I&D of wound on right thigh, left heel and left leg on 06/16/23. Will continue iv abx and follow up cultures Obesity: Pt was advised to lose weight. DM II: Continue accuchek, SSI and ADA diet. Anemia of chronic disease: Will monitor H/H. Hgb is 8.7 DVT ppx: SCD Code: full
[2023-06-17] MEDS: ATORVASTATIN 40 MG TAB PO SCH (21:14)
[2023-06-17] MEDS: DIPHENHYDRAMINE 25 MG TAB/CAP PO PRN (21:21)
[2023-06-18] MEDS: FUROSEMIDE 40 MG/4 ML VIAL IV SCH ×2 (00:54→09:03)
[2023-06-18] MEDS: MORPHINE 2 MG/ML SYR IV PRN ×2 (01:52→09:07)
[2023-06-18] MEDS: METOPROLOL XL 25 MG TAB PO SCH ×3 (05:54→18:00)
[2023-06-18] MEDS: LEVOTHYROXINE SOD 0.075 MG TAB PO SCH (05:55)
[2023-06-18] MEDS: HYDROCODONE/APAP 10/325 TAB PO PRN ×2 (05:59→17:43)
[2023-06-18 06:19] LABS: Absolute Lymphocytes (CBC) 0.5 K/uL (0.7-4.9); Lymphocytes % 10.4 % (15.3-44.8); MCV 91.7 fL (80-100); MPV 9.2 fL (7.6-11.3); Platelets 88 thou/uL (152-406); RBC Red Blood Cell Count 2.84 M/uL (3.86-4.86)
[2023-06-18 06:49] LABS: Albumin 2.7 g/dL (3.4-5.0); Phosphorus 8.4 mg/dL (2.5-4.9); Potassium 4.2 mEq/L (3.5-5.1)
--- NOTE | 2023-06-18 08:22 | P.PN ---
Subjective Date of Service: 06/18/23 Chief Complaint: Shortness of breath Moderate generalized weakness, limited transferring mobility, lives alone - Physical Exam General: Alert, Oriented x3, Moderate distress HEENT: Atraumatic, Normocephalic Neck: Supple, No Thyromegaly Respiratory: Crackles/rales Cardiovascular: Normal pulses, Regular rate/rhythm, Normal S1 S2 Capillary refill: <2 Seconds Gastrointestinal: Soft and benign, W/out hepatosplenomegaly, No rebound Musculoskeletal: No clubbing, Swelling Integumentary: Tenderness/swelling, Erythema Neurological: Normal speech, Other (Alert, Awake , Non focal ) Lymphatics: No axilla or inguinal lymphadenopathy Review of Systems PER HPI Physical Examination - Vital Signs Temperature: 98.6 F Blood Pressure: 110/66 Pulse: 72 Respirations: 17 Pulse Ox (%): 98 Assessment And Plan - Plan Assessment And Plan - Plan Fluid volume overload End-stage renal disease on hemodialysis Acute on chronic heart failure secondary pulm edema secondary to fluid volume overload Elevated troponin Nephrology consult Pt missed dialysis on 06/13/23. Will continue iv lasix and monitor respiratory status. ESRD on HD: Pt had HD on 06/15/23. Rowan 5.36 Elevated BNP: BNP is [id number], likely due to ESRD. Will follow up Echo Elevated troponin: troponin is 70. Will r/o ACS. Pt denies any chest pain. Likely due to ESRD. HD MWF. Received HD today. Bilateral leg wound: Infectious disease consult Gen surgery did I&D of wound on right thigh, left heel and left leg on 06/16/23. Will continue iv abx and follow up cultures 06/16 Dr. Peterson RIGHT inner thigh abscess, heel pressure wound, LEFT lower leg wound Debridement of RIGHT inner thigh abscess, heel pressure wound, 06/16 Wound culture Pseudomonas Zosyn renal dosing added Cefepime R, Meropenem I On Zosyn (started 06/18-) will need IV abx after DC, eval for SNF Obesity: Pt was advised to lose weight. DM II: Continue accuchek, SSI and ADA diet. Anemia of chronic disease: Will monitor H/H. Hgb is 8.7 DVT ppx: SCD Code: full Renal diet Discharge Plan: Home - Code Status/Comfort Care Code Status: Full Code Physician Review: Patient Assessed, Agree with Above Assessment and Plan Critical Care: No Time Spent Managing PTS Care (In Minutes): 35
[2023-06-18 08:24] LABS: Blood Morphology Comment NOT SEEN (NOT SEEN); Platelet Estimate DECR; White Blood Cell Scan OK (OK)
--- NOTE | 2023-06-18 08:28 | P.DS ---
Admission Date: 06/14/23 Discharge Date: 06/21/23 Disposition: TRANSFER TO ALF Discharge Condition: FAIR Reason for Admission: Shortness of breath - Problems (1) Wound of lower extremity Current Visit: Yes Status: Acute (2) Chronic kidney disease Current Visit: No Status: Acute Qualifiers: Chronic kidney disease stage: on chronic dialysis Qualified Code(s): N18.6 - End stage renal disease; Z99.2 - Dependence on renal dialysis (3) Congestive heart failure (CHF) Current Visit: No Status: Acute Brief History of Present Illness: 68-year-old female with past medical history of hypertension, diabetes, ESRD on dialysis, CAD, status post CABG, status post PCI, CHF, PAD, wound infection of lower extremities , brought to ER with shortness of breath. Patient missed dialysis yesterday but had dialysis on Sunday. Started having shortness of breath since yesterday and has been progressively worsening. Associated with mild chest discomfort. No fever or chills. No nausea vomiting or diarrhea. States shortness of breath is progressively worsening she was brought to ER.Patient was assessed in the ER and was found to have pulmonary edema and is admitted for further management. Chest x-ray was consistent with pulmonary edema along with very highly elevated BNP and elevated renal parameters - Physical Exam General: Alert, Oriented x3, Moderate distress HEENT: Atraumatic, Normocephalic Neck: Supple, No Thyromegaly Respiratory: Crackles/rales Cardiovascular: Normal pulses, Regular rate/rhythm, Normal S1 S2 Capillary refill: <2 Seconds Gastrointestinal: Soft and benign, W/out hepatosplenomegaly, No rebound Musculoskeletal: No clubbing, Swelling Integumentary: Tenderness/swelling, Erythema Neurological: Normal speech, Other (Alert, Awake , Non focal ) Lymphatics: No axilla or inguinal lymphadenopathy Hospital Course: Assessment And Plan - Plan Fluid volume overload End-stage renal disease on hemodialysis Acute on chronic heart failure secondary pulm edema secondary to fluid volume overload Elevated troponin Nephrology consult Pt missed dialysis on 06/13/23. Will continue iv lasix and monitor respiratory status. ESRD on HD: Pt had HD on 06/15/23. Elevated BNP: BNP is 590550, likely due to ESRD. Will follow up Echo Elevated troponin: troponin, Pt denies any chest pain. Likely due to ESRD. HD MWF. Received HD today. Bilateral leg wound: Infectious disease consult Gen surgery did I&D of wound on right thigh, left heel and left leg on 06/16/23. Will continue iv abx and follow up cultures 06/16 Dr. Peterson RIGHT inner thigh abscess, heel pressure wound, LEFT lower leg wound Debridement of RIGHT inner thigh abscess, heel pressure wound, 06/16 Wound culture Pseudomonas Zosyn renal dosing added Cefepime R, Meropenem I On Zosyn (started 06/18-) will need IV abx after DC, eval for SNF Plan to give antibiotics during dialysis - Abscess right thigh growing Pseudomonas. Started on Zosyn 06/18, continue for 10 days. - Continue Wound care per Dr. Peterson - Pressure offloading measures - Strict blood glucose control - Renally dose medications. Pharmacy consulted. Physician Discharge Instructions: -Continue home hemodialysis as ordered -DC IV and DC home -Follow-up with PCP in 1 to 2 weeks -Please call Dr. Dhillon at [phone] if any questions regarding hospital stay -Please call nursing station at [phone] if any nursing or medication questions -Return to the emergency room if symptoms worsen Diet: Low sodium Activity: Fall precautions Vital Signs/Physical Exam: Temp Pulse Resp BP Pulse Ox 98.6 F 72 17 110/66 98 06/18/23 08:27 06/18/23 08:27 06/18/23 08:27 06/18/23 08:27 06/18/23 08:27 Laboratory Data at Discharge: WBC 5.00 thou/uL (4.3-10.9) 06/18/23 05:00 Hgb 8.1 g/dL (12.0-15.0) L 06/18/23 05:00 Hct 26.0 % (36.0-45.0) L 06/18/23 05:00 Plt Count 88 thou/uL (152-406) L 06/18/23 05:00 PT 14.9 SECONDS (9.5-12.5) H 06/14/23 17:02 INR 1.37 06/14/23 17:02 Sodium 137 mEq/L (136-145) 06/18/23 05:00 Potassium 4.2 mEq/L (3.5-5.1) 06/18/23 05:00 BUN 63 mg/dL (7-18) H 06/18/23 05:00 Creatinine 5.67 mg/dL (0.55-1.02) H 06/18/23 05:00 Glucose 94 mg/dL (74-106) 06/18/23 05:00 Phosphorus 8.4 mg/dL (2.5-4.9) H 06/18/23 05:00 Magnesium 1.8 mg/dL (1.6-2.4) 06/14/23 17:02 Total Bilirubin 0.8 mg/dL (0.2-1.0) 06/15/23 07:26 AST 38 U/L (15-37) H 06/15/23 07:26 ALT 21 U/L (13-56) 06/15/23 07:26 Alkaline Phosphatase 74 U/L (45-117) 06/15/23 07:26 Home Medications: Metoprolol Succinate [Toprol Xl*] 12.5 mg PO BID 6AM 6PM tab 06/21/22 Silver Sulfadiazine Crm [Silvadene*] 1 appl TOP BID #1 jar 02/02/23 Nystatin Cream [Mycostatin 100MU/Gm Cream*] 1 appl TOP BID #1 tube 04/25/23 Levothyroxine Sodium [Synthroid] 150 mcg PO [id number] 05/09/23 Amiodarone HCl [Cordarone*] 200 mg PO DAILY 05/14/23 Ascorbic Acid/Ascorbate Sodium [Vitamin C 500 mg Tablet Chew] 1,000 mg PO DAILY 05/14/23 Aspirin [Aspirin EC 81 MG] 81 mg PO DAILY 05/14/23 Buspirone HCl [Buspar*] 1 tab PO BID 05/14/23 Cetirizine HCl [All Day Allergy Relief] 1 tab PO DAILY 05/14/23 Docusate Sodium 100 mg PO DAILY PRN 05/14/23 Fenofibrate,Micronized [Fenofibrate] 200 mg PO DAILY 05/14/23 Multivit-Min/Iron/FA/Vit K/Lut [Centrum Women 50 Plus Minis Tb] 2 tab PO DAILY 05/14/23 Sacubitril/Valsartan [Entresto 24 mg-26 mg Tablet] 0.5 tab PO BID 05/14/23 Albuterol Neb [Proventil 0.083% Neb Soln] 2.5 mg NEB [id number] PRN amp 05/24/23 Amino Acids/Protein Hydrolys [Prosource No Carb Liquid Pkt] 30 ml PO BID packet 05/24/23 Amlodipine [Norvasc*] 5 mg PO DAILY tab 05/24/23 Apixaban [Eliquis *] 2.5 mg PO BID 05/24/23 Atorvastatin Calcium [Lipitor] 40 mg PO BEDTIME tab 05/24/23 Bupropion Hcl [Wellbutrin] 1 tab PO BID 05/24/23 Clopidogrel Bisulfate [Plavix*] 75 mg PO DAILY 05/24/23 Collagenase [Santyl Ointment*] 1 appl TOP DAILY #1 tube 05/24/23 Epoetin [Retacrit] 10,000 unit IV EVERY HD vial 05/24/23 Mupirocin Oint [Bactroban 2% Ointment*] 1 appl TOP BID tube 05/24/23 Pantoprazole [Protonix Tab*] 40 mg PO DAILY tab 05/24/23 Diphenhydramine [Benadryl*] 25 mg PO Q6H PRN tab 06/18/23 Epoetin [Retacrit] 10,000 unit IV EVERY HD vial 06/18/23 Diphenhydramine [Benadryl*] 25 mg PO Q6H PRN tab 06/20/23 Heparin [Heparin 1,000 units/mL *] 6,000 unit IV EVERY HD PRN vial 06/20/23 Hydrocodone 10/APAP 325 [[place] 10/325*] 1 tab PO Q4H PRN tab 06/20/23 Insulin -Regular Human [Novolin -R*] See Protocol SQ ACHS ml 06/20/23 Lactobacillus Acidophilus [Acidophilus] 1 each PO BID 30 Days #60 cap 06/20/23 Wzbmhipnawoy-Scud-Lhripiqe,Iso [Zosyn 3.375 gm/50 ml Galaxy] 3.375 gm IV BID 7 Days #14 gm 06/20/23 New Medications: Lactobacillus Acidophilus [Acidophilus] 1 each PO BID 30 Days #60 cap Qidvbtapjdxz-Puif-Upnaozce,Iso [Zosyn 3.375 gm/50 ml Galaxy] 3.375 gm IV BID 7 Days #14 gm Physician Discharge Instructions: Fluid volume overload End-stage renal disease on hemodialysis Acute on chronic heart failure secondary pulm edema secondary to fluid volume overload Elevated troponin Nephrology consult Pt missed dialysis on 06/13/23. Will continue iv lasix and monitor respiratory status. ESRD on HD: Pt had HD on 06/15/23. Elevated BNP: BNP is 048523, likely due to ESRD. Will follow up Echo Elevated troponin: troponin, Pt denies any chest pain. Likely due to ESRD. HD MWF. Received HD today. Bilateral leg wound: Infectious disease consult Gen surgery did I&D of wound on right thigh, left heel and left leg on 06/16/23. Will continue iv abx and follow up cultures 06/16 Dr. Peterson RIGHT inner thigh abscess, heel pressure wound, LEFT lower leg wound Debridement of RIGHT inner thigh abscess, heel pressure wound, 06/16 Wound culture Pseudomonas Zosyn renal dosing added Cefepime R, Meropenem I On Zosyn (started 06/18-) will need IV abx after DC, eval for SNF Cont Zosyn BID x 7 days - Abscess right thigh growing Pseudomonas. Started on Zosyn 06/18, continue for 10 days. - Follow up Dr Monroe, Continue Wound care per Dr. Peterson - Pressure offloading measures - Strict blood glucose control - Renally dose medications. Pharmacy consulted. Physician Discharge Instructions: -Continue home hemodialysis as ordered -DC IV and DC home -Follow-up with PCP in 1 to 2 weeks -Please call Dr. Dhillon at [phone] if any questions regarding hospital stay -Please call nursing station at [phone] if any nursing or medication questions -Return to the emergency room if symptoms worsen Diet: Low sodium Activity: Fall precautions Followup: NONE,NONE [Primary Care Provider] -
[2023-06-18] MEDS ORDERED: PIPER TAZO 2.25 GM in NA CHLORIDE 0.9% 50 ML IV SCH (09:00)
[2023-06-18] MEDS ORDERED: CEFEPIME 1 GM in NA CHLORIDE 0.9% 100 ML IV SCH (09:00)
[2023-06-18] MEDS: SACUBITRIL/VALSARTAN 24/26 MG TAB PO SCH ×2 (09:02→20:06)
[2023-06-18] MEDS: ASPIRIN EC 81 MG TAB PO SCH (09:03)
[2023-06-18] MEDS: AMIODARONE HCL 200 MG TAB PO SCH (09:03)
[2023-06-18] MEDS: PANTOPRAZOLE 40MG TABLET PO SCH (09:04)
[2023-06-18] MEDS: MULTIVITAMIN TAB PO SCH (09:04)
[2023-06-18] MEDS: CLOPIDOGREL 75 MG TABLET PO SCH (09:04)
[2023-06-18] MEDS: ASCORBIC ACID 500 MG TABLET PO SCH (09:04)
--- NOTE | 2023-06-18 09:06 | P.CNS ---
Date of Consult: 06/18/23 Reason for Consult: pseudomonas wound Chief Complaint: Shortness of breath History of Present Illness: Patient is a 68 yo female with a medical history of hypertension, ESRD, diabetes mellitus type II, CHF, PAD, chronic wounds who presented to the ED with co mplaints of shortness of breath. Patient was admitted for pulmonary edema. Patient underwent debridement of Right inner thigh wound, right heel and left lower leg wound on 06/16/23. Wound cultures resulting with Pseudomonas. Infectious disease was consulted. Allergies codeine Allergy (Intermediate, Verified 08/04/22 13:31) Itching promethazine [From Phenergan] Allergy (Intermediate, Verified 08/04/22 13:31) Itching adhesive tape Adverse Reaction (Verified 08/04/22 13:31) Itching/Hives/Rash Home medications list reviewed: Yes Home Medications: Metoprolol Succinate [Toprol Xl*] 12.5 mg PO BID 6AM 6PM tab 06/21/22 Silver Sulfadiazine Crm [Silvadene*] 1 appl TOP BID #1 jar 02/02/23 Nystatin Cream [Mycostatin 100MU/Gm Cream*] 1 appl TOP BID #1 tube 04/25/23 Levothyroxine Sodium [Synthroid] 150 mcg PO [id number] 05/09/23 Amiodarone HCl [Cordarone*] 200 mg PO DAILY 05/14/23 Ascorbic Acid/Ascorbate Sodium [Vitamin C 500 mg Tablet Chew] 1,000 mg PO DAILY 05/14/23 Aspirin [Aspirin EC 81 MG] 81 mg PO DAILY 05/14/23 Buspirone HCl [Buspar*] 1 tab PO BID 05/14/23 Cetirizine HCl [All Day Allergy Relief] 1 tab PO DAILY 05/14/23 Docusate Sodium 100 mg PO DAILY PRN 05/14/23 Fenofibrate,Micronized [Fenofibrate] 200 mg PO DAILY 05/14/23 Multivit-Min/Iron/FA/Vit K/Lut [Centrum Women 50 Plus Minis Tb] 2 tab PO DAILY 05/14/23 Sacubitril/Valsartan [Entresto 24 mg-26 mg Tablet] 0.5 tab PO BID 05/14/23 Albuterol Neb [Proventil 0.083% Neb Soln] 2.5 mg NEB [id number] PRN amp 05/24/23 Amino Acids/Protein Hydrolys [Prosource No Carb Liquid Pkt] 30 ml PO BID packet 05/24/23 Amlodipine [Norvasc*] 5 mg PO DAILY tab 05/24/23 Apixaban [Eliquis *] 2.5 mg PO BID 05/24/23 Atorvastatin Calcium [Lipitor] 40 mg PO BEDTIME tab 05/24/23 Bupropion Hcl [Wellbutrin] 1 tab PO BID 05/24/23 Clopidogrel Bisulfate [Plavix*] 75 mg PO DAILY 05/24/23 Collagenase [Santyl Ointment*] 1 appl TOP DAILY #1 tube 05/24/23 Epoetin [Retacrit] 10,000 unit IV EVERY HD vial 05/24/23 Mupirocin Oint [Bactroban 2% Ointment*] 1 appl TOP BID tube 05/24/23 Pantoprazole [Protonix Tab*] 40 mg PO DAILY tab 05/24/23 Diphenhydramine [Benadryl*] 25 mg PO Q6H PRN tab 06/18/23 Epoetin [Retacrit] 10,000 unit IV EVERY HD vial 06/18/23 - Past Medical/Surgical History Diabetic: Yes -: IDDM -: Hypertension -: Hypothyroidism -: ESRD HD MWF -: hyperlipidemia -: depression -: Paralyzed Stomach -: Neuropathy -: CAD -: Back fusion -: bilateral total knee replacements -: bilateral carpal tunnel sx -: c section -: thyroidectomy -: neck fusion -: PD Cath then removed -: Cholecystectomy Psychosocial/ Personal History: Patient lives at [facility]. - Family History Mother Medical History: Heart disease, Hypertension, Lung disease, Cancer Notes: breast ca Father Medical History: Heart disease, Hypertension, Other (see notes) Notes: Alzheimer's - Social History Smoking Status: Former smoker Alcohol use: No CD- Drugs: No Caffeine use: Yes Place of Residence: Home Review of Systems 10-point ROS is otherwise unremarkable Musculoskeletal: Leg Pain (right thigh) Integumentary: Other (chronic wounds) Physical Examination Temp Pulse Resp BP Pulse Ox 98.6 F 72 17 110/66 98 06/18/23 08:37 06/18/23 08:37 06/18/23 08:37 06/18/23 08:37 06/18/23 08:37 General: Alert, In no apparent distress, Oriented x3 HEENT: Atraumatic, Normocephalic, Other (corrective lenses) Neck: Supple Respiratory: Normal air movement, Diminished Cardiovascular: Regular rate/rhythm, Edema (BLE) Gastrointestinal: Normal bowel sounds, Soft and benign Integumentary: Skin lesion (left lower leg; right inner thigh), Pressure ulcer (right heel) Neurological: Normal speech, Normal tone, Normal affect Laboratory Data - Reviewed Microbiology Data - Reviewed Imagings Data: - Reviewed Conclusions/Impression: Problem List Right Thigh Abscess Left Heel Pressure Ulcer, chronic End-Stage Renal Disease (ESRD) on hemodialysis Diabetes Mellitus type II Anemia of Chronic Disease Acute on Chronic CHF Pulmonary Edema Abscess Right Thigh Left Heel Pressure Ulcer - s/p I&D of Right inner thigh abscess, right heel and Left lower leg on 06/16/[address] Peterson - Wound culture 06/16: Pseudomonas aeruginosa - Cefepime R, Meropenem I - On Zosyn (started 06/18-) - No leukocytosis - Afebrile Recommendations - Abscess right thigh growing Pseudomonas. Started on Zosyn 06/18, continue for 10 days. - Continue Wound care per Dr. Peterson - Pressure offloading measures - Strict blood glucose control - Renally dose medications. Pharmacy consulted. Case discussed with Maraia Farrar
--- NOTE | 2023-06-18 09:09 | ECHO ---
HEIGHT: 5 ft 6 in WEIGHT: 235 lb 0 oz DATE OF STUDY: 06/15/[address]: Lang Larose DO 2-DIMENSIONAL: YES M.MODE: YES DOPPLER: YES COLOR FLOW: YES TDS: PORTABLE: YES DEFINITY: BUBBLE STUDY: DIAGNOSIS: CONGESTIVE HEART FAILURE CARDIAC HISTORY: CATHERIZATION: SURGERY: PROSTHETIC VALVE: PACEMAKER: MEASUREMENTS (cm) DIASTOLIC (NORMALS) SYSTOLIC (NORMALS) IVSd 1.0 (0.6-1.2) LA Diam 4.1 (1.9-4.0) LVEF 40-45% LVIDd 4.8 (3.5-5.7) LVIDs 4.1 (2.0-3.5) %FS 15% LVPWd 1.2 (0.6-1.2) Ao Diam 3.0 (2.0-3.7) 2 DIMENSIONAL ASSESSMENT: RIGHT ATRIUM: NORMAL LEFT ATRIUM: ENLARGED RIGHT VENTRICLE: NORMAL LEFT VENTRICLE: DEPRESSED EJECTION FRACTION TRICUSPID VALVE: MODERATE TRICUSPID REGURGITATION MITRAL VALVE: MILD MITRAL REGURGITATION PULMONIC VALVE: MILD PULMONIC INSUFFICIENCY AORTIC VALVE: CALCIFIED, NO AORTIC STENOSIS PERICARDIAL EFFUSION: NONE AORTIC ROOT: NORMAL LEFT VENTRICULAR WALL MOTION: MILD GLOBAL HYPOKINESIS DOPPLER/COLOR FLOW: SEE BELOW COMMENTS: 1. MILDLY DEPRESSED LEFT VENTRICULAR EJECTION FRACTION 40-45% 2. MILD GLOBAL HYPOKINESIS 3. LEFT ATRIAL ENLARGEMENT 4. MILD MITRAL REGURGITATION, PULMONIC INSUFFICIENCY 5. MODERATE TRICUSPID REGURGITATION 6. MODERATE DIASTOLIC DYSFUNCTION TECHNOLOGIST: ALICE SIMMONS
[2023-06-18] MEDS: EPOETIN ALFA 10,000 UNIT/ML VIAL IV SCH (14:15)
[2023-06-18] MEDS ORDERED: ACETAMINOPHEN 500 MG TAB PO PRN (17:46)
[2023-06-18] MEDS ORDERED: ALBUTEROL 2.5 MG/3 ML NEB SOL NEB PRN (17:50)
[2023-06-18] MEDS ORDERED: DOCUSATE NA 100 MG CAP PO PRN (17:51)
[2023-06-18] MEDS: PIPER TAZO 3.375 GM in NA CHLORIDE 0.9% 100 ML IV SCH (20:05)
[2023-06-18] MEDS: ATORVASTATIN 40 MG TAB PO SCH (20:06)
[2023-06-18] MEDS ORDERED: PIPER TAZO 3.375 GM in NA CHLORIDE 0.9% 100 ML IV SCH (21:00)
[2023-06-18] MEDS: ONDANSETRON 4 MG/2 ML VIAL IV PRN (22:22)
[2023-06-19] MEDS: MORPHINE 2 MG/ML SYR IV PRN ×2 (00:11→04:04)
[2023-06-19] MEDS ORDERED: PANTOPRAZOLE 40MG TABLET PO ONE (02:39)
[2023-06-19] MEDS: PANTOPRAZOLE 40MG TABLET PO SCH (02:40)
--- NOTE | 2023-06-19 03:37 | PN ---
Date of Progress Note: 06/18/2023 Chief Complaint: End stage renal disease, on hemodialysis. Subjective: The patient is admitted to the hospital because of multiple ulcers and cellulitis. She is on IV antibiotics. She is undergoing surgery for incision and drainage. Review of Systems: Denies chest pain, palpitation. Physical Examination: Lungs: Diminished breath sounds at bases. Heart: S1-S2. Abdomen: Soft. Extremities: Leg dressing in place. Impression And Plan: 1.End-stage renal disease. Dialysis on Sunday, Sunday, Sunday. Monitor electrolytes. Continue ultrafiltration to treat fluid overload. 2.Congestive heart failure, chronic diastolic dysfunction, volemia controlled with dialysis. Contin ue p.o. fluid restriction and low-sodium diet. 3.Anemia of chronic kidney disease. Monitor hemoglobin level. 4.Renal osteodystrophy. Monitor phosphorus level. 5.Secondary hyperparathyroidism. Continue low phosphorus diet and binders. EB/MODL Voice ID: [id number] Report ID: [id number]
[2023-06-19] MEDS: DIPHENHYDRAMINE 25 MG TAB/CAP PO PRN (04:04)
[2023-06-19] MEDS: ONDANSETRON 4 MG/2 ML VIAL IV PRN (05:55)
[2023-06-19] MEDS: LEVOTHYROXINE SOD 0.075 MG TAB PO SCH (05:56)
[2023-06-19] MEDS: METOPROLOL XL 25 MG TAB PO SCH ×2 (05:56→18:00)
[2023-06-19 07:44] LABS: Albumin 2.7 g/dL (3.4-5.0); Phosphorus 6.8 mg/dL (2.5-4.9); Potassium 4.2 mEq/L (3.5-5.1)
[2023-06-19] MEDS: PIPER TAZO 3.375 GM in NA CHLORIDE 0.9% 100 ML IV SCH ×2 (08:26→21:13)
[2023-06-19] MEDS: ASPIRIN EC 81 MG TAB PO SCH (08:33)
[2023-06-19] MEDS: ASCORBIC ACID 500 MG TABLET PO SCH (08:33)
[2023-06-19] MEDS: SACUBITRIL/VALSARTAN 24/26 MG TAB PO SCH ×2 (08:33→21:13)
[2023-06-19] MEDS: CLOPIDOGREL 75 MG TABLET PO SCH (08:33)
[2023-06-19] MEDS: AMIODARONE HCL 200 MG TAB PO SCH (08:33)
[2023-06-19] MEDS: MULTIVITAMIN TAB PO SCH (08:33)
--- NOTE | 2023-06-19 08:42 | P.PN ---
Date of Service: 06/19/23 Chief Complaint: Shortness of breath Subjective: Improving. Resting comfortably in bed. In no apparent distress. + right thigh pain. otherwise no new or worsening complaints at this time. Physical Examination Temp Pulse Resp BP Pulse Ox 97.4 F 73 18 124/58 L 99 06/19/23 04:00 06/19/23 05:56 06/19/23 04:34 06/19/23 05:56 06/19/23 04:34 General: Alert, In no apparent distress, Oriented x3 HEENT: Atraumatic, Normocephalic. Corrective lenses. Neck supple. Respiratory: Normal air movement, Diminished. Cardiovascular: Regular rate/rhythm. BLE edema. Gastrointestinal: Normal bowel sounds, Soft and benign. Non-tender. Integumentary: Debridement sites left lower leg, right inner thigh and right heel dressing clean dry and intact. Neurological: Normal speech, Normal tone, Normal affect Laboratory Data - Reviewed Microbiology Data - Reviewed Imagings Data: - Reviewed Medications List: Reviewed Assessment and Plan Problem List Right Thigh Abscess Left Heel Pressure Ulcer, chronic End-Stage Renal Disease (ESRD) on hemodialysis Diabetes Mellitus type II Anemia of Chronic Disease Acute on Chronic CHF Pulmonary Edema Abscess Right Thigh Left Heel Pressure Ulcer - s/p I&D of Right inner thigh abscess, right heel and Left lower leg on 06/16/[address] Peterson - Wound culture 06/16: Pseudomonas aeruginosa - Cefepime R, Meropenem I - On Zosyn (started 06/18-) - No leukocytosis - Afebrile Recommendations - Abscess right thigh growing Pseudomonas. Started on Zosyn 06/18, continue for 10 days. - Continue Wound care per Dr. Peterson - Pressure offloading measures - Strict blood glucose control - Renally dose medications. Pharmacy consulted. Case discussed with Mariaa Farrar
[2023-06-19] MEDS ORDERED: HYDROMORPHONE HCL 0.5 MG/0.5 ML INJ IV ONE (13:23)
--- NOTE | 2023-06-19 13:56 | P.PN ---
Subjective Date of Service: 06/19/23 Chief Complaint: Shortness of breath several loose stools today, reports moderate pain, Moderate generalized weakness, limited transferring mobility, lives alone - Physical Exam General: Alert, Oriented x3, Moderate distress HEENT: Atraumatic, Normocephalic Neck: Supple, No Thyromegaly Respiratory: Crackles/rales Cardiovascular: Normal pulses, Regular rate/rhythm, Normal S1 S2 Capillary refill: <2 Seconds Gastrointestinal: Soft and benign, W/out hepatosplenomegaly, No rebound Musculoskeletal: No clubbing, Swelling Integumentary: Tenderness/swelling, Erythema Neurological: Normal speech, Other (Alert, Awake , Non focal ) Lymphatics: No axilla or inguinal lymphadenopathy Review of Systems per HPI Physical Examination - Vital Signs Temperature: 97.5 F Blood Pressure: 116/53 Pulse: 72 Respirations: 18 Pulse Ox (%): 95 Assessment And Plan - Plan Assessment And Plan - Plan Fluid volume overload End-stage renal disease on hemodialysis Acute on chronic heart failure secondary pulm edema secondary to fluid volume overload Elevated troponin Nephrology consult Pt missed dialysis on 06/13/23. Will continue iv lasix and monitor respiratory status. ESRD on HD: Pt had HD on 06/15/23. [place] 5.36 Elevated BNP: BNP is 821333, likely due to ESRD. Will follow up Echo Elevated troponin: troponin is 70. Will r/o ACS. Pt denies any chest pain. Likely due to ESRD. HD MWF. Received HD today. Diarrhea acute Stool sample sent for Cdiff, Zosyn to cover wound, PO Vanc added to cover possible Cdiff (discussed with pharm) Lomitl x 1 Probitic added bid Bilateral leg wound: Infectious disease consult Gen surgery did I&D of wound on right thigh, left heel and left leg on 06/16/23. Will continue iv abx and follow up cultures 06/16 Dr. Peterson RIGHT inner thigh abscess, heel pressure wound, LEFT lower leg wound Debridement of RIGHT inner thigh abscess, heel pressure wound, 06/16 Wound culture Pseudomonas Zosyn renal dosing added Cefepime R, Meropenem I On Zosyn (started 06/18-) will need IV abx after DC, eval for SNF PRN anaglesic Obesity: Pt was advised to lose weight. DM II: Continue accuchek, SSI and ADA diet. Anemia of chronic disease: Will monitor H/H. Hgb is 8.7 DVT ppx: SCD Code: full Renal diet Discharge Plan: Home Plan to discharge in: 48 Hours Physician Review: Patient Assessed, Agree with Above Assessment and Plan Critical Care: No Time Spent Managing PTS Care (In Minutes): 35
--- NOTE | 2023-06-19 14:02 | EKG ---
Test Date: 2023-06-14 Test Time: 16:57:48 Senior Web Designer: MB MEASUREMENT RESULTS: Intervals: Rate: 81 WI: 190 QRSD: 106 QT: 440 QTc: 511 [place]: P: 89 WI: 190 QRS: 31 T: 113 INTERPRETIVE STATEMENTS: Normal sinus rhythm Low voltage QRS Prolonged QT Abnormal ECG Compared to ECG 05/12/2023 14:09:21 Prolonged QT interval now present Atrial premature complex(es) no longer present Fusion complex(es) no longer present Aberrant conduction of supraventricular beat(s) no longer present Myocardial infarct finding no longer present Electronically Signed On 06-19-23 13:45:44 INSIDE OUTSIDE SALES REPRESENTATIVE by Imer Lantigua
[2023-06-19] MEDS: DIPHENOX/ATROP SULF 1 TAB PO ONE (14:08)
[2023-06-19 14:17] LABS: C.diff Antigen/Toxin Ag neg : Tox neg (NEG : NEG)
[2023-06-19] MEDS ORDERED: METRONIDAZOLE 250mg IVPB 250 MG/50 ML BAG IV SCH (17:00)
--- NOTE | 2023-06-19 20:01 | PN ---
Date of Progress Note: 06/19/2023 Subjective: The patient was admitted to the hospital for debridement of multiple extremity abscess. Patient underwent debridement. Tolerated that very well. Objective: Vital Signs: Blood pressure 116/53, pulse of 72, afebrile. Chest: Faint rales, bilateral base. Heart: S1, S2. Systolic murmur. Abdomen: Soft, nontender. Extremities: Dressing on both legs and thighs. Laboratory Data: Hemoglobin 8.1, sodium 137, potassium 4.2, bicarb 21, BUN 48, creatinine 4.8, calci um 8.3, phosphorus 6.8. Current Medications: The patient on, it includes, diphenhydramine, Zosyn, aspirin, Plavix, Epogen, E ntresto, atorvastatin, amiodarone. Assessment And Plan: 1.End-stage renal disease. We will maintain the patient on her dialysis. 2.Hypertension, controlled, optimal. 3.Abscess with pseudomonas, multidrug resistant, arrangement for Zosyn. We will follow up. 4.Diabetes, as by primary. JOSÉ MIGUEL/RENÉ Voice ID: [id number] Report ID: [id number]
[2023-06-19] MEDS ORDERED: Ciprofloxacin 200mg IV 200 MG/100 ML IV.SOLN. IV SCH (21:00)
[2023-06-19] MEDS: LACTOBACILLUS/ACIDOPHILUS TAB PO SCH (21:14)
[2023-06-19] MEDS: ATORVASTATIN 40 MG TAB PO SCH (21:14)
[2023-06-19] MEDS: HYDROMORPHONE HCL 0.5 MG/0.5 ML INJ IV PRN (21:14)
[2023-06-20] MEDS: HYDROCODONE/APAP 10/325 TAB PO PRN (01:29)
[2023-06-20] MEDS: METOPROLOL XL 25 MG TAB PO SCH ×2 (05:28→17:09)
[2023-06-20] MEDS: LEVOTHYROXINE SOD 0.075 MG TAB PO SCH (05:29)
[2023-06-20] MEDS: HYDROMORPHONE HCL 0.5 MG/0.5 ML INJ IV PRN ×3 (07:23→21:35)
[2023-06-20 08:20] LABS: Albumin 2.6 g/dL (3.4-5.0); Phosphorus 7.4 mg/dL (2.5-4.9); Potassium 4.1 mEq/L (3.5-5.1)
[2023-06-20] MEDS: PIPER TAZO 3.375 GM in NA CHLORIDE 0.9% 100 ML IV SCH ×2 (08:22→20:23)
[2023-06-20] MEDS: SACUBITRIL/VALSARTAN 24/26 MG TAB PO SCH ×2 (08:23→20:23)
[2023-06-20] MEDS: LACTOBACILLUS/ACIDOPHILUS TAB PO SCH ×2 (08:23→20:23)
[2023-06-20] MEDS: ASPIRIN EC 81 MG TAB PO SCH (08:23)
[2023-06-20] MEDS: CLOPIDOGREL 75 MG TABLET PO SCH (08:24)
[2023-06-20] MEDS: PANTOPRAZOLE 40MG TABLET PO SCH (08:24)
[2023-06-20] MEDS: MULTIVITAMIN TAB PO SCH (08:24)
[2023-06-20] MEDS: ASCORBIC ACID 500 MG TABLET PO SCH (08:24)
[2023-06-20] MEDS: AMIODARONE HCL 200 MG TAB PO SCH (08:24)
--- NOTE | 2023-06-20 08:55 | P.PN ---
Subjective Date of Service: 06/20/23 Chief Complaint: Shortness of breath reports pain better controlled today, x1 loose stool today Moderate generalized weakness, limited transferring mobility, lives alone - Physical Exam General: Alert, Oriented x3, Moderate distress HEENT: Atraumatic, Normocephalic Neck: Supple, No Thyromegaly Respiratory: Crackles/rales Cardiovascular: Normal pulses, Regular rate/rhythm, Normal S1 S2 Capillary refill: <2 Seconds Gastrointestinal: Soft and benign, W/out hepatosplenomegaly, No rebound Musculoskeletal: No clubbing, Swelling Integumentary: Tenderness/swelling, Erythema Neurological: Normal speech, Other (Alert, Awake , Non focal ) Lymphatics: No axilla or inguinal lymphadenopathy Review of Systems per HPI Physical Examination - Vital Signs Temperature: 97.4 F Blood Pressure: 97/44 Pulse: 70 Respirations: 18 Pulse Ox (%): 98 Assessment And Plan - Plan Assessment And Plan - Plan Fluid volume overload End-stage renal disease on hemodialysis Acute on chronic heart failure secondary pulm edema secondary to fluid volume overload Elevated troponin Nephrology consult Pt missed dialysis on 06/13/23. Will continue iv lasix and monitor respiratory status. ESRD on HD: Pt had HD on 06/15/23. Rowan 5.36 Elevated BNP: BNP is [id number], likely due to ESRD. Will follow up Echo Elevated troponin: troponin is 70. Will r/o ACS. Pt denies any chest pain. Likely due to ESRD. HD MWF. Received HD today. Hypotension for acute diarrhea acute NS x1L ordered acute kidney injury likely secondary diarrhea acute trend kidney function, daily bmp, mag NS x 1L added Diarrhea acute Stool sample sent for Cdiff, Zosyn to cover wound, PO Vanc added to cover possible Cdiff (discussed with pharm) Lomitl x 1 Probitic added bid Bilateral leg wound: Infectious disease consult Gen surgery did I&D of wound on right thigh, left heel and left leg on 06/16/23. Will continue iv abx and follow up cultures 06/16 Dr. Peterson RIGHT inner thigh abscess, heel pressure wound, LEFT lower leg wound Debridement of RIGHT inner thigh abscess, heel pressure wound, 06/16 Wound culture Pseudomonas Zosyn renal dosing added Cefepime R, Meropenem I On Zosyn (started 06/18-) total 10 days, will need IV abx after DC, eval for SNF PRN anaglesic Picc line placed for IV ABX DC pending prior auth SNF for IV ABX Obesity: Pt was advised to lose weight. DM II: Continue accuchek, SSI and ADA diet. Anemia of chronic disease: Will monitor H/H. Hgb is 8.7 DVT ppx: SCD Code: full Renal diet Discharge Plan: [facility] - Code Status/Comfort Care Code Status: Full Code Physician Review: Patient Assessed, Agree with Above Assessment and Plan Critical Care: No Time Spent Managing PTS Care (In Minutes): 35
[2023-06-20] MEDS ORDERED: NA CHLORIDE 0.9% 1,000 ML IV SCH (09:00)
--- NOTE | 2023-06-20 09:11 | P.PN ---
Date of Service: 06/20/23 Chief Complaint: Shortness of breath Subjective: Multiple episodes of diarrhea yesterday; C.diff negative, stool culture pending. No acute events overnight. In no apparent distress. Diarrhea improved today. Pending outpatient IV antibiotic arrangements. CM/SS following. Physical Examination Temp Pulse Resp BP Pulse Ox 97.4 F 70 18 97/44 L 98 06/20/23 08:57 06/20/23 08:57 06/20/23 08:57 06/20/23 08:57 06/20/23 08:57 General: Alert, In no apparent distress, Oriented x3 HEENT: Atraumatic, Normocephalic. Corrective lenses. Neck supple. Respiratory: Normal air movement, Diminished. Cardiovascular: Regular rate/rhythm. BLE edema. Gastrointestinal: Normal bowel sounds, Soft and benign. Non-tender. Integumentary: Debridement sites left lower leg, right inner thigh and right heel dressing clean dry and intact. Neurological: Normal speech, Normal tone, Normal affect Laboratory Data - Reviewed Microbiology Data - Reviewed Imagings Data: - Reviewed Medications List: Reviewed Assessment and Plan Problem List Right Thigh Abscess Left Heel Pressure Ulcer, chronic End-Stage Renal Disease on HD Diabetes Mellitus type II Anemia of Chronic Disease Acute on Chronic CHF Pulmonary Edema Abscess Right Thigh Left Heel Pressure Ulcer - s/p I&D of Right inner thigh abscess, right heel and Left lower leg on 06/16/[address] Peterson - Wound culture 06/16: Pseudomonas aeruginosa - Cefepime R, Meropenem I - On Zosyn (started 06/18-) Diarrhea - C.diff antigen and toxin negative (06/19) - stool culture: pending - on probiotic started 06/19 No leukocytosis Afebrile Recommendations - Abscess right thigh growing Pseudomonas: Continue Zosyn for 10 days. - Currently on day 3 of 10. - Pending PICC line placement - Continue wound / debridement site care per Dr. Peterson - Pressure offloading measures - Strict blood glucose control - Renally dose medications. Pharmacy consulted. Case discussed with Mariaa Farrar
[2023-06-20] MEDS ORDERED: D50W 25 GM/50 ML SYRINGE IV PRN (09:29)
[2023-06-20] MEDS ORDERED: GLUCAGON 1 MG/VIAL IM PRN (09:29)
[2023-06-20] MEDS ORDERED: DIPHENOX/ATROP SULF 1 TAB PO ONE (09:45)
[2023-06-20] MEDS ORDERED: ALBUMIN HUMAN 25% 100 ML IV ONE (11:00)
[2023-06-20] MEDS: INSULIN REGULAR (HUMAN) 100 UNIT/ML SQ SCH ×3 (11:30→20:24)
--- NOTE | 2023-06-20 13:17 | PN ---
Date of Progress Note: 06/20/2023 Subjective: The patient was admitted with multiple wound abscess. The patient is status post I and D, tolerated very well. The patient had been on dialysis, back to her schedule Sunday, Sunday, . Physical Examination: Vital Signs: Blood pressure 97/44, pulse of 70, afebrile. Chest: Clear to auscultation. Heart: S1, S2. Systolic murmur. Abdomen: Soft, nontender. Extremities: Dressing on both legs on the medial aspect. Neurologic: Alert. No focality. Laboratory Data: Hemoglobin 8.1. Sodium 138, potassium 4.1, bicarb 20, BUN 57, creatinine 5.4, calc ium 8.4, phosphorus 7.4, albumin 2.6, corrected calcium is 9.6. Current Medications: The patient is on include: 1.Aspirin. 2.Zosyn. 3.Diphenhydramine. 4.Amiodarone. 5.Atorvastatin. 6.Entresto. 7.Levothyroxine. Assessment And Plan: 1.End-stage renal disease, over volume. We will continue the patient on dialysis and we will challe nge. 2.Over volume. The patient is going to be challenged on dialysis. 3.Hyponatremia, will be corrected with dialysis. 4.Anemia of chronic kidney disease. Continue Retacrit. 5.Wound infection with abscess, status post I and D. We will follow up with Surgery. Continue curr ent antibiotic. Follow up with ID. CR Voice ID: [id number] Report ID: [id number]
[2023-06-20] MEDS: EPOETIN ALFA 10,000 UNIT/ML VIAL IV SCH (13:30)
--- NOTE | 2023-06-20 15:58 | RAD REPORT ---
EXAM DESCRIPTION: RAD - Chest Single View - 06/20/2023 3:46 pm CLINICAL HISTORY: patency/placement of PICC line COMPARISON: Chest Single View dated 06/14/2023; Chest Single View dated 05/12/2023; Chest Single View dated 05/09/2023; Chest Single View dated 04/23/2023 FINDINGS: Portable chest was obtained following placement of a right upper extremity PICC line. The catheter tip projects over the SVC.
--- NOTE | 2023-06-20 16:29 | P.DS ---
Admission Date: 06/14/23 Discharge Date: 06/20/23 Disposition: TRANSFER TO [facility] Reason for Admission: Shortness of breath Brief History of Present Illness: 68-year-old female with past medical history of hypertension, diabetes, ESRD on dialysis, CAD, status post CABG, status post PCI, CHF, PAD, wound infection of lower extremities , brought to ER with shortness of breath. Patient missed dialysis yesterday but had dialysis on Sunday. Started having shortness of breath since yesterday and has been progressively worsening. Associated with mild chest discomfort. No fever or chills. No nausea vomiting or diarrhea. States shortness of breath is progressively worsening she was brought to ER.Patient was assessed in the ER and was found to have pulmonary edema and is admitted for further management. Chest x-ray was consistent with pulmonary ed andrey along with very highly elevated BNP and elevated renal parameters - Physical Exam General: Alert, Oriented x3, Moderate distress HEENT: Atraumatic, Normocephalic Neck: Supple, No Thyromegaly Respiratory: Crackles/rales Cardiovascular: Normal pulses, Regular rate/rhythm, Normal S1 S2 Capillary refill: <2 Seconds Gastrointestinal: Soft and benign, W/out hepatosplenomegaly, No rebound Musculoskeletal: No clubbing, Swelling Integumentary: Tenderness/swelling, Erythema Neurological: Normal speech, Other (Alert, Awake , Non focal ) Lymphatics: No axilla or inguinal lymphadenopathy Hospital Course: Assessment And Plan - Plan Fluid volume overload End-stage renal disease on hemodialysis Acute on chronic heart failure secondary pulm edema secondary to fluid volume overload Elevated troponin Nephrology consult Pt missed dialysis on 06/13/23. Will continue iv lasix and monitor respiratory status. ESRD on HD: Pt had HD on 06/15/23. Elevated BNP: BNP is [id number], likely due to ESRD. Will follow up Echo Elevated troponin: troponin, Pt denies any chest pain. Likely due to ESRD. HD MWF. Received HD today. Bilateral leg wound: Infectious disease consult Gen surgery did I&D of wound on right thigh, left heel and left leg on 06/16/23. Will continue iv abx and follow up cultures 06/16 Dr. Peterson RIGHT inner thigh abscess, heel pressure wound, LEFT lower leg wound Debridement of RIGHT inner thigh abscess, heel pressure wound, 06/16 Wound culture Pseudomonas Zosyn renal dosing added Cefepime R, Meropenem I On Zosyn (started 06/18-) will need IV abx after DC, eval for SNF Cont Zosyn BID x 7 days - Abscess right thigh growing Pseudomonas. Started on Zosyn 06/18, continue for 10 days. (HD?) - Follow up Dr Monroe, Continue Wound care per Dr. Peterson - Pressure offloading measures - Strict blood glucose control - Renally dose medications. Pharmacy consulted. Physician Discharge Instructions: -Continue home hemodialysis as ordered -DC IV and DC home -Follow-up with PCP in 1 to 2 weeks -Please call Dr. Dhillon at [phone] if any questions regarding hospital stay -Please call nursing station at [phone] if any nursing or medication questions -Return to the emergency room if symptoms worsen Diet: Low sodium Activity: Fall precautions Vital Signs/Physical Exam: Temp Pulse Resp BP Pulse Ox 97.4 F 70 18 97/44 L 98 06/20/23 08:57 06/20/23 08:57 06/20/23 14:27 06/20/23 08:57 06/20/23 14:27 Laboratory Data at Discharge: WBC 5.00 thou/uL (4.3-10.9) 06/18/23 05:00 Hgb 8.1 g/dL (12.0-15.0) L 06/18/23 05:00 Hct 26.0 % (36.0-45.0) L 06/18/23 05:00 Plt Count 88 thou/uL (152-406) L 06/18/23 05:00 PT 14.9 SECONDS (9.5-12.5) H 06/14/23 17:02 INR 1.37 06/14/23 17:02 Sodium 138 mEq/L (136-145) 06/20/23 06:54 Potassium 4.1 mEq/L (3.5-5.1) 06/20/23 06:54 BUN 57 mg/dL (7-18) H 06/20/23 06:54 Creatinine 5.45 mg/dL (0.55-1.02) H 06/20/23 06:54 Glucose 70 mg/dL (74-106) L 06/20/23 06:54 Phosphorus 7.4 mg/dL (2.5-4.9) H 06/20/23 06:54 Magnesium 1.8 mg/dL (1.6-2.4) 06/14/23 17:02 Total Bilirubin 0.8 mg/dL (0.2-1.0) 06/15/23 07:26 AST 38 U/L (15-37) H 06/15/23 07:26 ALT 21 U/L (13-56) 06/15/23 07:26 Alkaline Phosphatase 74 U/L (45-117) 06/15/23 07:26 Home Medications: Metoprolol Succinate [Toprol Xl*] 12.5 mg PO BID 6AM 6PM tab 06/21/22 Silver Sulfadiazine Crm [Silvadene*] 1 appl TOP BID #1 jar 02/02/23 Nystatin Cream [Mycostatin 100MU/Gm Cream*] 1 appl TOP BID #1 tube 04/25/23 Levothyroxine Sodium [Synthroid] 150 mcg PO [id number] 05/09/23 Amiodarone HCl [Cordarone*] 200 mg PO DAILY 05/14/23 Ascorbic Acid/Ascorbate Sodium [Vitamin C 500 mg Tablet Chew] 1,000 mg PO DAILY 05/14/23 Aspirin [Aspirin EC 81 MG] 81 mg PO DAILY 05/14/23 Buspirone HCl [Buspar*] 1 tab PO BID 05/14/23 Cetirizine HCl [All Day Allergy Relief] 1 tab PO DAILY 05/14/23 Docusate Sodium 100 mg PO DAILY PRN 05/14/23 Fenofibrate,Micronized [Fenofibrate] 200 mg PO DAILY 05/14/23 Multivit-Min/Iron/FA/Vit K/Lut [Centrum Women 50 Plus Minis Tb] 2 tab PO DAILY 05/14/23 Sacubitril/Valsartan [Entresto 24 mg-26 mg Tablet] 0.5 tab PO BID 05/14/23 Albuterol Neb [Proventil 0.083% Neb Soln] 2.5 mg NEB [id number] PRN amp 05/24/23 Amino Acids/Protein Hydrolys [Prosource No Carb Liquid Pkt] 30 ml PO BID packet 05/24/23 Amlodipine [Norvasc*] 5 mg PO DAILY tab 05/24/23 Apixaban [Eliquis *] 2.5 mg PO BID 05/24/23 Atorvastatin Calcium [Lipitor] 40 mg PO BEDTIME tab 05/24/23 Bupropion Hcl [Wellbutrin] 1 tab PO BID 05/24/23 Clopidogrel Bisulfate [Plavix*] 75 mg PO DAILY 05/24/23 Collagenase [Santyl Ointment*] 1 appl TOP DAILY #1 tube 05/24/23 Epoetin [Retacrit] 10,000 unit IV EVERY HD vial 05/24/23 Mupirocin Oint [Bactroban 2% Ointment*] 1 appl TOP BID tube 05/24/23 Pantoprazole [Protonix Tab*] 40 mg PO DAILY tab 05/24/23 Diphenhydramine [Benadryl*] 25 mg PO Q6H PRN tab 06/18/23 Epoetin [Retacrit] 10,000 unit IV EVERY HD vial 06/18/23 Followup: NONE,NONE [Primary Care Provider] -
[2023-06-20] MEDS: ATORVASTATIN 40 MG TAB PO SCH (20:23)
[2023-06-21] MEDS: HYDROCODONE/APAP 10/325 TAB PO PRN (02:17)
[2023-06-21] MEDS: DIPHENHYDRAMINE 25 MG TAB/CAP PO PRN ×2 (03:30→21:40)
[2023-06-21] MEDS: METOPROLOL XL 25 MG TAB PO SCH ×2 (05:27→17:32)
[2023-06-21] MEDS: LEVOTHYROXINE SOD 0.075 MG TAB PO SCH (05:27)
[2023-06-21] MEDS: INSULIN REGULAR (HUMAN) 100 UNIT/ML SQ SCH ×4 (07:30→21:00)
[2023-06-21 07:57] LABS: Albumin 2.5 g/dL (3.4-5.0); Phosphorus 5.3 mg/dL (2.5-4.9); Potassium 3.9 mEq/L (3.5-5.1)
--- NOTE | 2023-06-21 09:26 | P.PN ---
Date of Service: 06/21/23 Chief Complaint: Shortness of breath Subjective: No acute events overnight. In no apparent distress. No new or worsening complaints at this time. Continue current plan of care. Physical Examination Temp Pulse Resp BP Pulse Ox 98 F 74 15 116/52 L 98 06/21/23 08:00 06/21/23 08:00 06/21/23 08:00 06/21/23 08:00 06/21/23 08:00 General: Alert, In no apparent distress, Oriented x3 HEENT: Atraumatic, Normocephalic. Corrective lenses. Neck supple. Respiratory: Normal air movement, Diminished. Cardiovascular: Regular rate/rhythm. BLE edema. Gastrointestinal: Normal bowel sounds, Soft and benign. Non-tender. Integumentary: Debridement sites left lower leg, right inner thigh and right heel dressing clean dry and intact. Neurological: Normal speech, Normal tone, Normal affect Laboratory Data - Reviewed Microbiology Data - Reviewed Imagings Data: - Reviewed Medications List: Reviewed Assessment and Plan Problem List Right Thigh Abscess Left Heel Pressure Ulcer, chronic End-Stage Renal Disease on HD Diabetes Mellitus type II Anemia of Chronic Disease Acute on Chronic CHF Pulmonary Edema Abscess Right Thigh Left Heel Pressure Ulcer - s/p I&D of Right inner thigh abscess, right heel and Left lower leg on 06/16/[address] Peterson - Wound culture 06/16: Pseudomonas aeruginosa - Cefepime R, Meropenem I - On Zosyn (started 06/18-) Diarrhea - C.diff antigen and toxin negative (06/19) - stool culture: pending - on probiotic started 06/19 No leukocytosis Afebrile Recommendations - Abscess right thigh growing Pseudomonas: Continue Zosyn for 10 days. - Currently on day 4 of 10. - Continue wound / debridement site care per Dr. Peterson - Pressure offloading measures - Strict blood glucose control - ESRD: Renally dose medications. Nephrology following. Pharmacy also following. Case discussed with Mariaa Farrar
[2023-06-21] MEDS: SACUBITRIL/VALSARTAN 24/26 MG TAB PO SCH ×2 (09:51→21:40)
[2023-06-21] MEDS: PANTOPRAZOLE 40MG TABLET PO SCH (09:51)
[2023-06-21] MEDS: LACTOBACILLUS/ACIDOPHILUS TAB PO SCH ×2 (09:51→21:41)
[2023-06-21] MEDS: CLOPIDOGREL 75 MG TABLET PO SCH (09:51)
[2023-06-21] MEDS: ASPIRIN EC 81 MG TAB PO SCH (09:51)
[2023-06-21] MEDS: MULTIVITAMIN TAB PO SCH (09:51)
[2023-06-21] MEDS: ASCORBIC ACID 500 MG TABLET PO SCH (09:51)
[2023-06-21] MEDS: PIPER TAZO 3.375 GM in NA CHLORIDE 0.9% 100 ML IV SCH ×2 (09:52→21:34)
[2023-06-21] MEDS: AMIODARONE HCL 200 MG TAB PO SCH (09:52)
--- NOTE | 2023-06-21 12:59 | PN ---
Date of Progress Note: 06/21/2023 Subjective: The patient was admitted to the hospital with wound infection, abscess on the thigh. Alex peace is status post I and D. Patient complaining from pain in the area. Objective: Vital Signs: Blood pressure 116/52, pulse of 74, afebrile. Chest: Crackles on the base. Heart: S1, S2. Systolic murmur. Abdomen: Soft, nontender. Extremities: Dressing on both legs, tender. No edema. Multiple ulcer on the toes. Laboratory Data: Hemoglobin 8.1, sodium 139, potassium 3.9, bicarb 25, BUN 33, creatinine 4.1, calci um 8.2, phosphorus 5.3, albumin 2.5, corrected calcium is 9.4. Current Medications: The patient on, includes Zosyn, aspirin, Epogen, Entresto, metoprolol. Assessment And Plan: 1.End-stage renal disease. We will continue the patient on dialysis. Patient scheduled for dialysi s Sunday, Sunday, Sunday. Arrange for dialysis tomorrow and we will follow up. 2.Hypertension, controlled, optimal. Continue current treatment. 3.Anemia of chronic kidney disease. Continue XENIA. 4.Overvolume, currently patient with normal volume. We will continue dialysis 3 times a week. 5.Wound infection with abscess. Continue IV antibiotic. Follow up with Surgery. CR Voice ID: [id number] Report ID: [id number]
--- NOTE | 2023-06-21 14:43 | P.PN ---
Subjective Date of Service: 06/21/23 Chief Complaint: Shortness of breath reports pain better controlled today, x1 loose stool today Moderate generalized weakness, limited transferring mobility, lives alone - Physical Exam General: Alert, Oriented x3, Moderate distress HEENT: Atraumatic, Normocephalic Neck: Supple, No Thyromegaly Respiratory: Crackles/rales Cardiovascular: Normal pulses, Regular rate/rhythm, Normal S1 S2 Capillary refill: <2 Seconds Gastrointestinal: Soft and benign, W/out hepatosplenomegaly, No rebound Musculoskeletal: No clubbing, Swelling Integumentary: Tenderness/swelling, Erythema Neurological: Normal speech, Other (Alert, Awake , Non focal ) Lymphatics: No axilla or inguinal lymphadenopathy Review of Systems per HPI Physical Examination - Vital Signs Temperature: 97.1 F Blood Pressure: 132/55 Pulse: 76 Respirations: 18 Pulse Ox (%): 97 Assessment And Plan - Plan Assessment And Plan - Plan Fluid volume overload End-stage renal disease on hemodialysis Acute on chronic heart failure secondary pulm edema secondary to fluid volume overload Elevated troponin Nephrology consult Pt missed dialysis on 06/13/23. Will continue iv lasix and monitor respiratory status. ESRD on HD: Pt had HD on 06/15/23. Rowan 5.36 Elevated BNP: BNP is 055655, likely due to ESRD. Will follow up Echo Elevated troponin: troponin is 70. Will r/o ACS. Pt denies any chest pain. Likely due to ESRD. HD MWF. plan to DC to SNF Hypotension for acute diarrhea acute improved NS x1L ordered acute kidney injury likely secondary diarrhea acute trend kidney function, daily bmp, mag NS x 1L added Diarrhea acute imporved Stool sample sent for Cdiff, Zosyn to cover wound, PO Vanc added to cover possible Cdiff (discussed with pharm) Lomitl x 1 Probitic added bid Bilateral leg wound: improved Infectious disease consult Gen surgery did I&D of wound on right thigh, left heel and left leg on 06/16/23. Will continue iv abx and follow up cultures 06/16 Dr. Peterson RIGHT inner thigh abscess, heel pressure wound, LEFT lower leg wound Debridement of RIGHT inner thigh abscess, heel pressure wound, 06/16 Wound culture Pseudomonas Zosyn renal dosing added Cefepime R, Meropenem I On Zosyn (started 06/18-) total 10 days, will need IV abx after DC, eval for SNF PRN anaglesic Picc line placed for IV ABX DC pending prior auth SNF for IV ABX Obesity: Pt was advised to lose weight. DM II: Continue accuchek, SSI and ADA diet. Anemia of chronic disease: Will monitor H/H. Hgb is 8.7 DVT ppx: SCD Code: full Renal diet Discharge Plan: [facility] - Code Status/Comfort Care Code Status: Full Code Physician Review: Patient Assessed, Agree with Above Assessment and Plan Time Spent Managing PTS Care (In Minutes): 35
[2023-06-21] MEDS: HYDROMORPHONE HCL 0.5 MG/0.5 ML INJ IV PRN ×2 (16:47→22:19)
[2023-06-21] MEDS: ATORVASTATIN 40 MG TAB PO SCH (21:40)
[2023-06-22] MEDS: HYDROCODONE/APAP 10/325 TAB PO PRN ×2 (02:19→20:16)
[2023-06-22] MEDS: HYDROMORPHONE HCL 0.5 MG/0.5 ML INJ IV PRN ×3 (04:27→15:51)
[2023-06-22] MEDS: LEVOTHYROXINE SOD 0.075 MG TAB PO SCH (04:33)
[2023-06-22] MEDS: METOPROLOL XL 25 MG TAB PO SCH ×2 (04:33→18:28)
[2023-06-22] MEDS: INSULIN REGULAR (HUMAN) 100 UNIT/ML SQ SCH ×4 (07:30→20:20)
[2023-06-22] MEDS: SACUBITRIL/VALSARTAN 24/26 MG TAB PO SCH ×2 (09:00→20:17)
[2023-06-22] MEDS: AMIODARONE HCL 200 MG TAB PO SCH (09:00)
[2023-06-22] MEDS: ASPIRIN EC 81 MG TAB PO SCH (09:01)
[2023-06-22] MEDS: MULTIVITAMIN TAB PO SCH (09:01)
[2023-06-22] MEDS: PANTOPRAZOLE 40MG TABLET PO SCH (09:01)
[2023-06-22] MEDS: ASCORBIC ACID 500 MG TABLET PO SCH (09:01)
[2023-06-22] MEDS: CLOPIDOGREL 75 MG TABLET PO SCH (09:01)
[2023-06-22] MEDS: LACTOBACILLUS/ACIDOPHILUS TAB PO SCH ×2 (09:01→20:17)
[2023-06-22] MEDS: PIPER TAZO 3.375 GM in NA CHLORIDE 0.9% 100 ML IV SCH ×2 (09:05→20:18)
[2023-06-22 10:17] LABS: Albumin 2.5 g/dL (3.4-5.0); Phosphorus 6.4 mg/dL (2.5-4.9); Potassium 4.2 mEq/L (3.5-5.1)
[2023-06-22] MEDS: EPOETIN ALFA 10,000 UNIT/ML VIAL IV SCH (14:00)
--- NOTE | 2023-06-22 16:39 | P.PN ---
Subjective Date of Service: 06/22/23 Chief Complaint: Shortness of breath Subjective: No new changes Physical Examination - Vital Signs Temperature: 96.9 F Blood Pressure: 106/54 Pulse: 67 Respirations: 16 Pulse Ox (%): 98 - Physical Exam General: Other (chronically ill-appearing) HEENT: Atraumatic, Normocephalic Neck: Supple, JVD not distended Respiratory: Other (symmetric chest expansion) Cardiovascular: No rubs, No murmurs Gastrointestinal: Soft and benign, No guarding Musculoskeletal: No clubbing Integumentary: No warmth Neurological: Normal speech, Normal tone Urinary: Other (no bladder distention) External genitalia: Deferred Rectal: Deferred Assessment And Plan - Plan 1. ESRD on HD MWF. HD received today. 2. Hypertension, controlled, optimal. Continue current med regimen. 3. Anemia of chronic kidney disease. Continue XENIA. 4. Overvolume, currently patient with normal volume. We will continue dialysis 3 times a week. 5. Renal osteodystrophy. Monitor serum Ca & Phos. 6. Wound infection of lower extremities. Continue IV antibiotic. Follow up with Surgery. Physician Review: Patient Assessed, Agree with Above Assessment and Plan
[2023-06-22] MEDS: ATORVASTATIN 40 MG TAB PO SCH (20:15)
[2023-06-22] MEDS: DIPHENHYDRAMINE 25 MG TAB/CAP PO PRN (20:15)
[2023-06-22 20:23] VITALS: O2SAT 95
[2023-06-23] MEDS: ONDANSETRON 4 MG/2 ML VIAL IV PRN (00:09)
[2023-06-23] MEDS: HYDROMORPHONE HCL 0.5 MG/0.5 ML INJ IV PRN ×3 (00:10→11:44)
[2023-06-23] MEDS: DIPHENHYDRAMINE 25 MG TAB/CAP PO PRN (03:03)
[2023-06-23] MEDS: HYDROCODONE/APAP 10/325 TAB PO PRN ×2 (03:03→10:06)
[2023-06-23] MEDS: METOPROLOL XL 25 MG TAB PO SCH (05:35)
[2023-06-23] MEDS: LEVOTHYROXINE SOD 0.075 MG TAB PO SCH (05:36)
[2023-06-23] MEDS: INSULIN REGULAR (HUMAN) 100 UNIT/ML SQ SCH ×2 (07:30→11:30)
[2023-06-23] MEDS: PANTOPRAZOLE 40MG TABLET PO SCH (08:41)
[2023-06-23] MEDS: CLOPIDOGREL 75 MG TABLET PO SCH (08:41)
[2023-06-23] MEDS: SACUBITRIL/VALSARTAN 24/26 MG TAB PO SCH (08:41)
[2023-06-23] MEDS: ASCORBIC ACID 500 MG TABLET PO SCH (08:41)
[2023-06-23] MEDS: ASPIRIN EC 81 MG TAB PO SCH (08:41)
[2023-06-23] MEDS: MULTIVITAMIN TAB PO SCH (08:41)
[2023-06-23] MEDS: LACTOBACILLUS/ACIDOPHILUS TAB PO SCH (08:41)
[2023-06-23] MEDS: AMIODARONE HCL 200 MG TAB PO SCH (08:41)
[2023-06-23] MEDS: PIPER TAZO 3.375 GM in NA CHLORIDE 0.9% 100 ML IV SCH (08:42)
--- NOTE | 2023-06-23 09:43 | P.PN ---
Subjective Date of Service: 06/23/23 Chief Complaint: Shortness of breath reports pain better controlled today, x1 loose stool today Moderate generalized weakness, limited transferring mobility, lives alone - Physical Exam General: Alert, Oriented x3, Moderate distress HEENT: Atraumatic, Normocephalic Neck: Supple, No Thyromegaly Respiratory: Crackles/rales Cardiovascular: Normal pulses, Regular rate/rhythm, Normal S1 S2 Capillary refill: <2 Seconds Gastrointestinal: Soft and benign, W/out hepatosplenomegaly, No rebound Musculoskeletal: No clubbing, Swelling Integumentary: Tenderness/swelling, Erythema Neurological: Normal speech, Other (Alert, Awake , Non focal ) Lymphatics: No axilla or inguinal lymphadenopathy Physical Examination - Vital Signs Temperature: 96.9 F Blood Pressure: 106/54 Pulse: 67 Respirations: 16 Pulse Ox (%): 98 Assessment And Plan - Current Problems (Diagnosis) (1) Wound of lower extremity Current Visit: Yes Status: Acute (2) Chronic kidney disease Current Visit: No Status: Acute Qualifiers: Chronic kidney disease stage: on chronic dialysis Qualified Code(s): N18.6 - End stage renal disease; Z99.2 - Dependence on renal dialysis (3) Congestive heart failure (CHF) Current Visit: No Status: Acute - Plan Assessment And Plan - Plan Fluid volume overload End-stage renal disease on hemodialysis Acute on chronic heart failure secondary pulm edema secondary to fluid volume overload Elevated troponin Nephrology consult Pt missed dialysis on 06/13/23. Will continue iv lasix and monitor respiratory status. ESRD on HD: Pt had HD on 06/15/23. Rowan 5.36 Elevated BNP: BNP is 515788, likely due to ESRD. Will follow up Echo Elevated troponin: troponin is 70. Will r/o ACS. Pt denies any chest pain. Likely due to ESRD. HD MWF. plan to DC to SNF Hypotension for acute diarrhea acute improved NS x1L ordered acute kidney injury likely secondary diarrhea acute trend kidney function, daily bmp, mag NS x 1L added Diarrhea acute imporved Stool sample sent for Cdiff, Zosyn to cover wound, PO Vanc added to cover possible Cdiff (discussed with pharm) Lomitl x 1 Probitic added bid Bilateral leg wound: improved Infectious disease consult Gen surgery did I&D of wound on right thigh, left heel and left leg on 06/16/23. Will continue iv abx and follow up cultures 12/9 Dr. Peterson RIGHT inner thigh abscess, heel pressure wound, LEFT lower leg wound Debridement of RIGHT inner thigh abscess, heel pressure wound, 06/16 Wound culture Pseudomonas Zosyn renal dosing added Cefepime R, Meropenem I On Zosyn (started 06/18-) total 10 days, will need IV abx after DC, eval for SNF PRN anaglesic Picc line placed for IV ABX DC pending prior auth SNF for IV ABX Obesity: Pt was advised to lose weight. DM II: Continue accuchek, SSI and ADA diet. Anemia of chronic disease: Will monitor H/H. Hgb is 8.7 DVT ppx: SCD Code: full Renal diet Physician Review: Patient Assessed, Agree with Above Assessment and Plan
--- NOTE | 2023-06-23 10:59 | P.DS ---
Admission Date: 06/14/23 Discharge Date: 06/23/23 Disposition: TRANSFER TO [facility] Discharge Condition: FAIR Reason for Admission: Shortness of breath - Problems (1) Wound of lower extremity Current Visit: Yes Status: Acute (2) Chronic kidney disease Current Visit: No Status: Acute Qualifiers: Chronic kidney disease stage: on chronic dialysis Qualified Code(s): N18.6 - End stage renal disease; Z99.2 - Dependence on renal dialysis (3) Congestive heart failure (CHF) Current Visit: No Status: Acute Brief History of Present Illness: 68-year-old female with past medical history of hypertension, diabetes, ESRD on dialysis, CAD, status post CABG, status post PCI, CHF, PAD, wound infection of lower extremities , brought to ER with shortness of breath. Patient missed dialysis yesterday but had dialysis on Sunday. Started having shortness of breath since yesterday and has been progressively worsening. Associated with mild chest discomfort. No fever or chills. No nausea vomiting or diarrhea. States shortness of breath is progressively worsening she was brought to ER.Patient was assessed in the ER and was found to have pulmonary edema and is admitted for further management. Chest x-ray was consistent with pulmonary edema along with very highly elevated BNP and elevated renal parameters - Physical Exam General: Alert, Oriented x3, Moderate distress HEENT: Atraumatic, Normocephalic Neck: Supple, No Thyromegaly Respiratory: Crackles/rales Cardiovascular: Normal pulses, Regular rate/rhythm, Normal S1 S2 Capillary refill: <2 Seconds Gastrointestinal: Soft and benign, W/out hepatosplenomegaly, No rebound Musculoskeletal: No clubbing, Swelling Integumentary: Tenderness/swelling, Erythema Neurological: Normal speech, Other (Alert, Awake , Non focal ) Lymphatics: No axilla or inguinal lymphadenopathy Hospital Course: Assessment And Plan - Plan Fluid volume overload End-stage renal disease on hemodialysis Acute on chronic heart failure secondary pulm edema secondary to fluid volume overload Elevated troponin Nephrology consult Pt missed dialysis on 06/13/23. Will continue iv lasix and monitor respiratory status. ESRD on HD: Pt had HD on 06/15/23. Elevated BNP: BNP is [id number], likely due to ESRD. Will follow up Echo Elevated troponin: troponin, Pt denies any chest pain. Likely due to ESRD. HD MWF. Received HD today. Bilateral leg wound: Infectious disease consult Gen surgery did I&D of wound on right thigh, left heel and left leg on 06/16/23. Will continue iv abx and follow up cultures 06/16 Dr. Peterson RIGHT inner thigh abscess, heel pressure wound, LEFT lower leg wound Debridement of RIGHT inner thigh abscess, heel pressure wound, 06/16 Wound culture Pseudomonas Zosyn renal dosing added Cefepime R, Meropenem I On Zosyn (started 06/18-) will need IV abx after DC, eval for SNF Plan to give antibiotics during dialysis -loose stool Cdiff negative, per pharm, Zosyn is coverage for GI infection -prn Lomitil for loose stools - Abscess right thigh growing Pseudomonas. Started on Zosyn 06/18, continue for 10 days. - Continue Wound care per Dr. Peterson - Pressure offloading measures - Strict blood glucose control - Renally dose medications. Pharmacy consulted. Physician Discharge Instructions: -Continue home hemodialysis as ordered -DC IV and DC home -Follow-up with PCP in 1 to 2 weeks -Please call Dr. Dhillon at [phone] if any questions regarding hospital stay -Please call nursing station at [phone] if any nursing or medication questions -Return to the emergency room if symptoms worsen Diet: Low sodium Activity: Fall precautions Vital Signs/Physical Exam: Temp Pulse Resp BP Pulse Ox 96.9 F 67 16 106/54 L 98 06/23/23 09:42 06/23/23 09:42 06/23/23 09:42 06/23/23 09:42 06/23/23 09:42 Laboratory Data at Discharge: WBC 5.00 thou/uL (4.3-10.9) 06/18/23 05:00 Hgb 8.1 g/dL (12.0-15.0) L 06/18/23 05:00 Hct 26.0 % (36.0-45.0) L 06/18/23 05:00 Plt Count 88 thou/uL (152-406) L 06/18/23 05:00 PT 14.9 SECONDS (9.5-12.5) H 06/14/23 17:02 INR 1.37 06/14/23 17:02 Sodium 138 mEq/L (136-145) 06/22/23 09:53 Potassium 4.2 mEq/L (3.5-5.1) 06/22/23 09:53 BUN 38 mg/dL (7-18) H 06/22/23 09:53 Creatinine 5.21 mg/dL (0.55-1.02) H 06/22/23 09:53 Glucose 140 mg/dL (74-106) H 06/22/23 09:53 Phosphorus 6.4 mg/dL (2.5-4.9) H 06/22/23 09:53 Magnesium 1.8 mg/dL (1.6-2.4) 06/14/23 17:02 Total Bilirubin 0.8 mg/dL (0.2-1.0) 06/15/23 07:26 AST 38 U/L (15-37) H 06/15/23 07:26 ALT 21 U/L (13-56) 06/15/23 07:26 Alkaline Phosphatase 74 U/L (45-117) 06/15/23 07:26 Home Medications: Amiodarone HCl [Cordarone*] 200 mg PO DAILY 06/22/23 Apixaban [Eliquis *] 2.5 mg PO BID 06/22/23 Aspirin [Aspirin EC 81 MG] 81 mg PO DAILY 06/22/23 Atorvastatin Calcium [Lipitor] 40 mg PO BEDTIME 06/22/23 Bupropion HCl [Wellbutrin Sr] 150 mg PO DAILY 06/22/23 Cephalexin 500 mg PO DAILY 06/22/23 Cetirizine HCl 10 mg PO DAILY 06/22/23 Insulin Glargine,Hum.rec.anlog [Insulin Glargine] 5 units SQ BEDTIME 06/22/23 Levothyroxine [Synthroid*] 100 mcg PO DAILY 06/22/23 Loratadine 10 mg PO DAILY 06/22/23 Metoprolol Succinate 25 mg PO DAILY 06/22/23 Pantoprazole [Protonix Tab*] 40 mg PO DAILY 06/22/23 Polyethylene Glycol 8000 [Polyethylene Glycol] 17 g PO DAILY 06/22/23 Sacubitril/Valsartan [Entresto 24 mg-26 mg Tablet] 0.5 tab PO BID 06/22/23 Physician Discharge Instructions: End-stage renal disease on hemodialysis Elevated troponin Nephrology consult Pt missed dialysis on 06/13/23. Will continue iv lasix and monitor respiratory status. ESRD on HD: Pt had HD on 06/15/23. Elevated BNP: BNP is [id number], likely due to ESRD. Will follow up Echo Elevated troponin: troponin, Pt denies any chest pain. Likely due to ESRD. HD MWF. PROBLEM: Bilateral leg wound: Infectious disease consult Gen surgery did I&D of wound on right thigh, left heel and left leg on 06/16/23. Will continue iv abx and follow up cultures 06/16 Dr. Peterson RIGHT inner thigh abscess, heel pressure wound, LEFT lower leg wound Debridement of RIGHT inner thigh abscess, heel pressure wound, 06/16 Wound culture Pseudomonas Zosyn renal dosing added Cefepime R, Meropenem I On Zosyn (started 06/18-) will need IV abx after DC, eval for SNF Cont Zosyn BID x 7 days - Abscess right thigh growing Pseudomonas. Started on Zosyn 06/18, continue for 10 days. - Follow up Dr Monroe, Continue Wound care per Dr. Peterson - Pressure offloading measures - Strict blood glucose control - Renally dose medications. Pharmacy consulted. GOAL: Clear understanding of disease process Diet: ADA, low sodium Activity: Fall precautions DME: Date Ordered: Name of Company: [employer] Services Needed: HD Date or Referral: IMMUNIZATION Influenza Vaccine Indicated: Influenza Vaccine Given: Date Given: Pneumonia Vaccine Indicated: Pneumonia Vaccine Given: Date Given: Physician Discharge Instructions: -Continue home hemodialysis as ordered -DC IV and DC SNF [facility], with IV ABX -Follow up with Dr Monroe for wound care after discharge -Follow-up with PCP in 1 to 2 weeks -Please call Dr. Dhillon at [phone] if any questions regarding hospital stay -Please call nursing station at [phone] if any nursing or medication questions -Return to the emergency room if symptoms worsen Diet: Low sodium Activity: Fall precautions Diet: AHA Activity: Fall precautions Followup: Avtar Peterson MD [ACTIVE - CAN ADMIT] - NONE,NONE [Primary Care Provider] -
[2023-06-23] MEDS ORDERED: LOPERAMIDE HCL 2 MG CAPSULE PO ONE (11:30)
--- NOTE | 2023-06-24 02:02 | PN ---
Date of Progress Note: 06/23/2023 Chief Complaint: End-stage renal disease, congestive heart failure, shortness of breath, and acute o n chronic respiratory failure. The patient is dialysis dependent. She is admitted to the hospital a nd dialysis was done to obtain negative fluid balance and to control fluid overload. The patient is feeling better. Review of Systems: Denies chest pain, palpitation. Physical Examination: Lungs: Few rhonchi. Heart: S1, S2. Abdomen: Soft. Extremities: No edema. Dressing in place. Impression And Plan: 1.End-stage renal disease, on hemodialysis Sunday, Sunday, Sunday. The patient is undergoing pearl lysis 3 times per week. Continue low-sodium diet and p.o. fluid restriction. 2.Hypertension. Blood pressure is controlled. Continue current medication regimen. 3.Anemia of chronic kidney disease. Continue XENIA. 4.Over-volume. Currently, the patient is euvolemic. The patient will continue dialysis 3 times per week. Continue restriction with renal diet as well as p.o. fluid restriction. 5.Renal osteodystrophy. Monitor serum calcium and phosphorus levels. Continue binders according to lab results. 6.Wound infection of lower extremity. The patient is on IV antibiotics. The patient will follow up for wound care. EB/MODL Voice ID: [id number] Report ID: [id number]
[2023-06-24 12:08] VITALS: BP 106/54; TEMP 96.9
== END 2023-06-23 15:26 | DRG 264 ==
LOC: ER 16:38 → ERHOLD 20:04 → 4TH 21:36
PROVIDERS: ADMIT Family Medicine; ATTEND Hospitalist
PROC: 5A1D70Z Performance of Urinary Filtration, Intermittent, Less than 6 Hours Per Day (ICD-10-PCS; 2023-06-15)
PROC: 0JBQ0ZZ Excision of Right Foot Subcutaneous Tissue and Fascia, Open Approach (ICD-10-PCS; 2023-06-16)
PROC: 0JBM0ZZ Excision of Left Upper Leg Subcutaneous Tissue and Fascia, Open Approach (ICD-10-PCS; 2023-06-16)
PROC: 0JBL0ZZ Excision of Right Upper Leg Subcutaneous Tissue and Fascia, Open Approach (ICD-10-PCS; principal; 2023-06-16 10:00)
PROC: 02HV33Z Insertion of Infusion Device into Superior Vena Cava, Percutaneous Approach (ICD-10-PCS; 2023-06-20)
DX: I13.2 Hypertensive heart and chronic kidney disease with heart failure and with stage 5 chronic kidney disease, or end stage renal disease (principal); I50.23 Acute on chronic systolic (congestive) heart failure; I21.4 Non-ST elevation (NSTEMI) myocardial infarction; L89.614 Pressure ulcer of right heel, stage 4; N18.6 End stage renal disease; J96.20 Acute and chronic respiratory failure, unspecified whether with hypoxia or hypercapnia; N25.81 Secondary hyperparathyroidism of renal origin; L02.415 Cutaneous abscess of right lower limb; E11.52 Type 2 diabetes mellitus with diabetic peripheral angiopathy with gangrene; Z16.24 Resistance to multiple antibiotics; N17.9 Acute kidney failure, unspecified; E87.1 Hypo-osmolality and hyponatremia; E11.22 Type 2 diabetes mellitus with diabetic chronic kidney disease; E11.40 Type 2 diabetes mellitus with diabetic neuropathy, unspecified; E11.65 Type 2 diabetes mellitus with hyperglycemia; E11.649 Type 2 diabetes mellitus with hypoglycemia without coma; D63.1 Anemia in chronic kidney disease; E78.5 Hyperlipidemia, unspecified; N25.0 Renal osteodystrophy; I95.9 Hypotension, unspecified; E03.9 Hypothyroidism, unspecified; E66.01 Morbid (severe) obesity due to excess calories; I25.2 Old myocardial infarction; I25.10 Atherosclerotic heart disease of native coronary artery without angina pectoris; B96.5 Pseudomonas (aeruginosa) (mallei) (pseudomallei) as the cause of diseases classified elsewhere; R19.7 Diarrhea, unspecified; Z95.1 Presence of aortocoronary bypass graft; Z79.4 Long term (current) use of insulin; Z88.5 Allergy status to narcotic agent; Z99.2 Dependence on renal dialysis; Z60.2 Problems related to living alone; Z95.5 Presence of coronary angioplasty implant and graft; Z88.8 Allergy status to other drugs, medicaments and biological substances; Z68.37 Body mass index [BMI] 37.0-37.9, adult; Z79.82 Long term (current) use of aspirin; Z79.01 Long term (current) use of anticoagulants; Z90.49 Acquired absence of other specified parts of digestive tract; Z79.02 Long term (current) use of antithrombotics/antiplatelets; Z91.048 Other nonmedicinal substance allergy status; Z79.899 Other long term (current) drug therapy; Z79.890 Hormone replacement therapy; Z87.891 Personal history of nicotine dependence; Z96.653 Presence of artificial knee joint, bilateral; Z91.158 Patient's noncompliance with renal dialysis for other reason
CPT/HCPCS: 36415; 71045; 80053; 80069; 82947; 83735; 83880; 84484; 85025; 85610; 87045; 87046; 87070; 87075; 87077; 87186; 87205; 87324; 87340; 88304; 90935; 93005; 93306; 94760; 96374; 96375; 97110; 97161; 99285; J0696; J1170; J1644; J1940; J2270; J2405; J2543; J2704; J3010; J7030; J7050; P9047

== ENCOUNTER 2023-07-13 15:51 | Inpatient (IN) | payer OTHER ==
[2023-07-13] MEDS ORDERED: DIPHENHYDRAMINE 50 MG/ML VIAL ONE (16:13)
[2023-07-13] MEDS ORDERED: NA CHLORIDE 0.9% 1,000 ML ONE (16:13)
[2023-07-13] MEDS ORDERED: HALOPERIDOL LACT 5 MG/ML INJ ONE (16:13)
[2023-07-13 16:42] LABS: Absolute Lymphocytes (CBC) 0.5 K/uL (0.7-4.9); Hematocrit 25.7 % (36.0-45.0); Lymphocytes % 10.6 % (15.3-44.8); MCV 92.2 fL (80-100); MPV 8.3 fL (7.6-11.3); Platelets 74 thou/uL (152-406); RBC Red Blood Cell Count 2.79 M/uL (3.86-4.86)
--- NOTE | 2023-07-13 16:53 | RAD REPORT ---
EXAM DESCRIPTION: Mitul Single View07/13/2023 4:35 pm CLINICAL HISTORY: Chest pain COMPARISON: 06/20/2023 FINDINGS: Mild bilateral interstitial lung opacities Moderate cardiomegaly. Post surgical changes involve the chest Central venous line place IMPRESSION: Mild bilateral interstitial lung opacities may indicate mild interstitial pulmonary debra a
[2023-07-13 17:01] LABS: Albumin 2.8 g/dL (3.4-5.0); Bilirubin Total 0.9 mg/dL (0.2-1.0); Protein, Total 6.7 g/dL (6.4-8.2)
[2023-07-13 17:04] LABS: Troponin High Sensitivity 143.8 pg/mL (<58.9)
[2023-07-13 17:40] LABS: Anisocytosis 2+; Blood Morphology Comment NOTED (NOT SEEN); Platelet Estimate DECR; White Blood Cell Scan OK (OK)
--- NOTE | 2023-07-13 17:55 | RAD REPORT ---
EXAM DESCRIPTION: Geno Angio07/13/2023 5:23 pm CLINICAL HISTORY: Slurred speech COMPARISON: None TECHNIQUE: 100 cc Isovue [address] angiogram of the neck was obtained. 3D MIPS reconstruction performed. All CT scans are performed using dose optimization technique as appropriate and may include automated exposure control or mA/KV adjustment according to patient size. FINDINGS: Marked calcified and noncalcified plaque mid to distal left common carotid artery. Moderate calcified plaque distal left common carotid artery. Mild to moderate calcified plaque left carotid bulb. Mild plaque left internal carotid artery Moderate calcified right common carotid artery. Images of the right carotid bulb limited secondary to artifact probably swallowing. There probably is moderate plaque right carotid bulb. Proximal and mid vertebral arteries are unremarkable. Calcified plaquing distal left and right vertebral arteries resulting in high-grade stenoses IMPRESSION: Marked plaque mid to distal left common carotid artery results in an approximately 80% s tenosis Moderate plaque right common carotid artery Suboptimal evaluation of the right carotid bulb. Plaque resulting in moderate stenosis suspected Marked calcified plaque distal right and left vertebral arteries resulting in severe stenoses Nascet crieria Mild stenosis 0 to 49 % Moderate stenosis 50-69% Severe stenosis 70-99%
--- NOTE | 2023-07-13 18:00 | RAD REPORT ---
EXAM DESCRIPTION: CTHead angio07/13/2023 5:23 pm CLINICAL HISTORY: Slurred speech COMPARISON: none TECHNIQUE: 100 cc Isovue [address] angiogram of the head was obtained. 3D MIPS reconstruction performed. All CT scans are performed using dose optimization technique as appropriate and may include automated exposure control or mA/KV adjustment according to patient size. FINDINGS: The basilar,, distal internal carotid anterior cerebral, middle cerebral and posterior cer ebral arteries do not demonstrate a significant stenosis An aneurysm is not seen No large vessel occlusion IMPRESSION: No significant abnormality is displayed
--- NOTE | 2023-07-13 18:04 | RAD REPORT ---
EXAM DESCRIPTION: CT - Head Brain Wo Cont - 07/13/2023 5:23 pm CLINICAL HISTORY: Slurred speech COMPARISON: October 2022 TECHNIQUE: Computed axial tomography of the head was obtained. IV contrast was not requested. All CT scans are performed using dose optimization technique as appropriate and may include automated exposure control or mA/KV adjustment according to patient size. FINDINGS: An intracranial bleed is not seen The ventricles are normal in caliber No extra-axial fluid collection is noted. Mild low-density areas within periventricular, deep and subcortical white matter likely represent isc hemic changes secondary to small vessel disease. Fluid within the sinuses/ mastoids is not seen. IMPRESSION: No acute intracranial abnormality is seen If patient's symptoms persist MRI of the brain would be recommended
[2023-07-13 18:35] LABS: Urine Bacteria <20 /HPF (<20); Urine Mucus 2+ /HPF (None Seen); Urine RBC >50 /HPF (None Seen)
[2023-07-13 18:36] LABS: Specific Gravity 1.025 (1.005-1.030); Urine Bilirubin NEGATIVE (Negative); Urine Blood 3+ (OVER) (Negative); Urine Clarity Extremely Turbid (Clear); Urine Color Yellow (Yellow); Urine Glucose TRACE (Negative); Urine Protein 4+ (Over) (Negative); Urine Urobilinogen Normal (Normal)
--- NOTE | 2023-07-13 19:03 | EDPHYS ---
Physician Documentation [facility] Name: Meseret Gallego Age: 68 yrs Sex: Female : 1955 Arrival Date: 07/13/2023 Time: 15:51 Bed 16 Private MD: ED Physician Anders Taylor HPI: 07/13 15:58 This 68 yrs old Female presents to ER via Unassigned with complaints of AMS. ec2 15:58 Patient arrives today due to concern for altered mental status as well as possible ec2 slurred speech and facial droop. When reviewing external paperwork, patient was recently seen at [facility] for altered mental status multiple times past couple weeks. Patient was at dialysis today, reportedly had slurred speech, underwent dialysis without improvement in her symptoms. Last known well is unclear however it has been greater than 5 hours which is the duration of the dialysis run.. 16:[address] Hernandez per the external paperwork.. ec2 17:38 Patient also with hallucinations, speaking to objects that are not in the room and ec2 picking at things that are not in the room.. Historical: - Allergies: 16:08 Codeine; ap3 16:08 Phenergan; ap3 16:08 Tape; ap3 - PMHx: 16:08 Diabetes - IDDM; Dialysis; Hypercholesterolemia; Hypertension; Hypothyroidism; ap3 Myocardial infarction; - PSHx: 16:08 2 heart stents; back; section; Coronary artery bypass graft; knee; neck; ap3 - Immunization history:: unknown, but patient is a resident in a group home. - Social history:: Smoking status: unknown. ROS: 16:04 Constitutional: as per hpi ec2 Exam: 16:04 Constitutional: GEN: NAD Head: atraumatic Eyes: EOMI Ears: External ears are ec2 normal. CV: regular rate LUNGS: no respiratory distress ABD: non-distended SKIN: Bilateral skin wounds noted, dressings removed, no evidence of purulence or erythema MSK: no evidence of trauma NEURO: Appears to move all extremities equally, possible right-sided facial droop, possible slurred speech however difficult to decipher given the patient's marked alteration in mental status. Vital Signs: 16:18 BP 148 / 82; Pulse 75; Pulse Ox 100% on R/A; ap3 17:37 Resp 20; Temp 98.2(A); ap3 18:03 Pulse 76; Pulse Ox 100% on R/A; ap3 18:58 BP 101 / 49; Pulse 82; Pulse Ox 98% on R/A; ap3 21:29 BP 149 / 64; Pulse 67; Resp 13; Pulse Ox 100% on 2 lpm NC; nw1 MDM: 15:53 Patient medically screened. ec2 16:06 ED course: Patient arrives today due to concern for altered mental status as well as ec2 possible slurred speech. Examination remarkable for well-appearing nontoxic dividual is otherwise in no acute distress with overall exam does not appear focal. Will obtain lab work, CT imaging of the head as well as CT angio of the head and neck, urine studies as well as chest x-ray and EKG. Currently considering ACS, possible intracranial pathology such as mass, lower suspicion for stroke. Additionally considering UTI.. 16:08 ED course: EKG independently reviewed and interpreted by me, shows normal sinus rhythm, ec2 rate of 71, no acute ST segment elevations, nonconcerning intervals. . 17:15 Data reviewed: vital signs. ec2 17:28 ED course: CBC shows slight anemia with a hemoglobin of 8.5. Metabolic profile shows ec2 hypokalemia, known renal dysfunction, elevated troponin, all consistent with the patient's known kidney disease and recent dialysis use. . 19:01 Consideration of Admission/Observation Patient was admitted/placed on observation. kb Escalation of care including admission/observation considered. Management of patient was discussed with the following: Hospitalist: Dr Mendosa accepts pt for admission. Historians other than the Patient: EMS: [facility]. Counseling: I had a detailed discussion with the patient and/or guardian regarding the historical points, exam findings, and any diagnostic results supporting the discharge/admit diagnosis, lab results, radiology results, the need for further work-up and treatment in the hospital. 07/13 15:55 Order name: CBC with Diff; Complete Time: 17:41 ec2 07/13 15:55 Order name: CMP; Complete Time: 17:14 ec2 07/13 15:55 Order name: UAM; Complete Time: 18:42 ec2 07/13 15:55 Order name: Troponin HS; Complete Time: 17:14 ec2 07/13 15:59 Order name: AMMONIA; Complete Time: 17:14 ec2 07/13 17:41 Order name: CBC Smear Scan; Complete Time: 17:41 EDMS 07/13 18:37 Order name: Urine Microscopic Only kb 07/13 18:41 Order name: Urine Culture EDMS 07/13 20:02 Order name: Comprehensive Metabolic Panel EDMS 07/13 20:02 Order name: Comprehensive Metabolic Panel EDMS 07/13 20:02 Order name: Lactate w/ 2H reflex if indic. EDMS 07/13 20:02 Order name: Magnesium EDMS 07/13 20:02 Order name: Magnesium EDMS 07/13 20:02 Order name: Phosphorus EDMS 07/13 20:02 Order name: Phosphorus EDMS 07/13 20:02 Order name: Thyroid Stimulating Hormone EDMS 07/13 20:02 Order name: Thyroid Stimulating Hormone EDMS 07/13 20:02 Order name: CBC with Automated Diff EDMS 07/13 20:02 Order name: CBC with Automated Diff EDMS 07/13 20:02 Order name: ABG Arterial Blood Gas; Complete Time: 21:08 EDMS 07/13 20:02 Order name: Urinalysis w/ reflexes EDMS 07/13 15:55 Order name: CXR XRAY; Complete Time: 17:14 ec2 07/13 15:55 Order name: CT Head Brain wo Cont; Complete Time: 18:05 ec2 07/13 15:55 Order name: CT Head Angio; Complete Time: 18:01 ec2 07/13 15:55 Order name: CT Neck Angio; Complete Time: 17:59 ec2 07/13 15:55 Order name: EKG; Complete Time: 15:56 ec2 07/13 19:53 Order name: CONS Physician Consult EDMS 07/13 20:02 Order name: EKG Electrocardiogram EDMS 07/13 20:03 Order name: Patient Safety Orders EDMS 07/13 15:55 Order name: EKG - Nurse/Tech; Complete Time: 16:10 ec2 07/13 17:26 Order name: Cath; Complete Time: 17:57 ec2 Administered Medications: 16:40 Drug: diphenhydrAMINE IVP 25 mg IVP once Route: IVP; Site: right wrist; ap3 18:41 Follow up: Response: No adverse reaction ap3 16:40 Drug: NS 0.9% IV 1000 ml IV at 1 bolus Per protocol; 1000 mL bolus Route: IV; Rate: 1 ap3 bolus; Site: right wrist; 16:44 Drug: Haloperidol IVP 5 mg IVP once Route: IVP; Site: right wrist; ap3 18:41 Follow up: Response: No adverse reaction ap3 20:26 Drug: Rocephin IV 1 grams IV at calculated rate once; Given slow IV push per pharmacy nw1 instructions Route: IV; Rate: calculated rate; Site: right forearm; Disposition Summary: 07/13/23 19:02 Hospitalization Ordered Notes: Hospitalization Status: Inpatient Admission kb Provider: Sudhakar Mendosa Location: Telemetry/[facility]Sur (Inpatient) kb Condition: Stable kb Problem: new kb Symptoms: are unchanged kb Bed/Room Type: Standard Room Assignment: 203(07/13/23 20:28) kl Diagnosis - Altered mental status, unspecified kb - UTI/ Urinary tract infection, site not specified kb Forms: - Medication Reconciliation Form kb - SBAR form kb - Leadership Thank You Letter kb Addendum: 07/15/2023 08:58 I agree with the assessment and plan of care. I reviewed the patient's care provided by e c2 Advanced Practice Provider \T\ agree w/ the diagnosis \T\ care plan. I personally saw the pt \T\ performed a substantive portion of the visit, incldng all aspects of the (History/Exam/Medical Decision Making). Signatures: Dispatcher [employer] Emilee Aguiar, NILE-C RFP WRITER-Kim Trejo RN Kiki Monroe RN RN ap3 Anders Taylor MD MD ec2 Rosita Schroeder RN RN nw1 Corrections: (The following items were deleted from the chart) 07/13 16:07 16:04 Constitutional: No acute distress ec2 ec2 17:22 16:08 ED course: EKG independently reviewed and interpreted by me, shows normal sinus ec2 rhythm, rate of 71, no acute ST segment elevations, nonconcerning intervals. . ec2 17:26 17:15 ED course: Metabolic profile with appropriate electrolytes, diminished renal ec2 function with a creatinine of 2.42 and a GFR of 29. Troponin within normal ranges, BNP within normal ranges. When I reviewed and compared to external records, GFR and creatinine appear similar. Most recently on 06/24/2023 with a creatinine of 2.51 and GFR of 28. . ec2 17:15 ED course: Metabolic profile with appropriate electrolytes, diminished renal ec2 function with a creatinine of 2.42 and a GFR of 29. Troponin within normal ranges, BNP within normal ranges. When I reviewed and compared to external records, GFR and creatinine appear similar. Most recently on 06/24/2023 with a creatinine of 2.51 and GFR of 28. . ec2 17:15 ED course: . ec2 ec2 19:02 kb kl
--- NOTE | 2023-07-13 19:03 | ER ---
Nurse's Notes [facility] Name: Meseret Gallego Age: 68 yrs Sex: Female : 1955 Arrival Date: 07/13/2023 Time: 15:51 Bed 16 Private MD: Diagnosis: Altered mental status, unspecified;UTI/ Urinary tract infection, site not specified Presentation: 07/13 16:06 Chief complaint: EMS states: patient went to dialysis today and appeared altered to ap3 them with slurred speach. dialysis went ahead a dialyzed the patient prior to calling EMS. EMS state the patient was altered in route, and kept trying to crawl out of the stretcher. It is reported this is not the patients baseline. Coronavirus screen: At this time, the client does not indicate any symptoms associated with coronavirus-19. Ebola Screen: No symptoms or risks identified at this time. Initial Sepsis Screen: Does the patient meet any 2 criteria?. Risk Assessment: Do you want to hurt yourself or someone else? Patient reports no desire to harm self or others. Onset of symptoms is unknown. 16:06 Method Of Arrival: EMS: [facility] ap3 16:06 Acuity: CHRISTOPHER 2 ap3 17:02 Initial Sepsis Screen: Does the patient have a suspected source of infection? No. ap3 Patient's initial sepsis screen is negative. Triage Assessment: 16:09 General: Appears distressed, Behavior is restless. Pain: Unable to use pain scale. ap3 Patient is disoriented. Neuro: Level of Consciousness is confused. Cardiovascular: Patient's skin is warm and dry. Respiratory: Airway is patent Respiratory effort is even, unlabored, Respiratory pattern is regular, symmetrical. Historical: - Allergies: 16:08 Codeine; ap3 16:08 Phenergan; ap3 16:08 Tape; ap3 - PMHx: 16:08 Diabetes - IDDM; Dialysis; Hypercholesterolemia; Hypertension; Hypothyroidism; ap3 Myocardial infarction; - PSHx: 16:08 2 heart stents; back; section; Coronary artery bypass graft; knee; neck; ap3 - Immunization history:: unknown, but patient is a resident in a fdc. - Social history:: Smoking status: unknown. Screenin:10 Abuse screen: Denies threats or abuse. Nutritional screening: No deficits noted. ap3 Tuberculosis screening: No symptoms or risk factors identified. Assessment: 20:40 Reassessment: Report received from Day shift RN. Pt transferred from room 13 to room 16 nw1 due to AMS and needing to be closer to nurse's station. Pt transferred into hospital bed. Call light at bedside and lights dimmed. Incontinent care provided. Redirection needed when BP cuff goes off. 20:40 Neuro: Level of Consciousness is awake, alert, confused, Oriented to person, follows nw1 commands. Soup Person are equal bilaterally Moves all extremities. Full function Gait is not assessed. . Speech is slurred, unable to properly assess. . 20:40 Cardiovascular: Heart tones present Pulses are all present. Respiratory: Airway is nw1 patent Trachea midline Respiratory effort is even, unlabored, Respiratory pattern is regular, symmetrical. Vital Signs: 16:18 BP 148 / 82; Pulse 75; Pulse Ox 100% on R/A; ap3 17:37 Resp 20; Temp 98.2(A); ap3 18:03 Pulse 76; Pulse Ox 100% on R/A; ap3 18:58 BP 101 / 49; Pulse 82; Pulse Ox 98% on R/A; ap3 21:29 BP 149 / 64; Pulse 67; Resp 13; Pulse Ox 100% on 2 lpm NC; nw1 ED Course: 15:52 Patient arrived in ED. zm 15:52 Anders Taylor MD is Attending Physician. ec2 16:05 Radiology exam delayed due to IV insertion attempt and/or patient not having nj appropriate IV at this time. 16:05 Radiology exam delayed due to lab results not completed at this time. (BUN/Creatinine). nj 16:06 Kiki Lawler, RN is Primary Nurse. ap3 16:08 Triage completed. ap3 16:10 Arm band placed on right wrist. ap3 16:10 Patient has correct armband on for positive identification. Bed in low position. Call ap3 light in reach. Side rails up X2. vehicle monitor technician on. Pulse ox on. NIBP on. 16:30 Missed attempt(s): 20 gauge in right forearm. Bleeding controlled, band aid applied, aa5 catheter tip intact. 16:33 Inserted saline lock: 22 gauge in right wrist, using aseptic technique. aa5 16:33 Initial lab(s) drawn, by me, sent to lab. aa5 16:37 CXR XRAY In Process Unspecified. EDMS 17:02 Notified ED physician of a critical lab result(s). Troponin 143.8. aa5 17:24 CT Head Brain wo Cont In Process Unspecified. EDMS 17:25 CT Head Angio In Process Unspecified. EDMS 17:25 CT Neck Angio In Process Unspecified. EDMS 17:38 Emilee Childress [facility]-C [facility] kb 17:57 Straight cath inserted, using sterile technique, Returned cloudy urine. Patient ap3 tolerated well. 19:02 Sudhakar Mendosa is Hospitalizing Provider. kb Administered Medications: 16:40 Drug: diphenhydrAMINE IVP 25 mg IVP once Route: IVP; Site: right wrist; ap3 18:41 Follow up: Response: No adverse reaction ap3 16:40 Drug: NS 0.9% IV 1000 ml IV at 1 bolus Per protocol; 1000 mL bolus Route: IV; Rate: 1 ap3 bolus; Site: right wrist; 16:44 Drug: Haloperidol IVP 5 mg IVP once Route: IVP; Site: right wrist; ap3 18:41 Follow up: Response: No adverse reaction ap3 20:26 Drug: Rocephin IV 1 grams IV at calculated rate once; Given slow IV push per pharmacy nw1 instructions Route: IV; Rate: calculated rate; Site: right forearm; Medication: 17:02 VIS not applicable for this client. ap3 Outcome: 19:02 Decision to Hospitalize by Provider. kb 21:26 Admitted to Tele accompanied by tech, via stretcher, room 203, Report called to tracey Price RN. All questions asked, answered. 21:26 Condition: stable 21:26 Instructed on the need for admit, 22:21 Patient left the ED. nw1 Signatures: Dispatcher [employer] EDMS Emilee Childress, REYNOLD STRATEGY SPECIALIST-Zeinab Valentin, RN RN [id number] Alfred Lund Amanda, RN RN ap3 Vikki Walls Edwin, MD MD ec2 Rosita Schroeder, PERRI RN nw1
[2023-07-13] MEDS ORDERED: NA CHLORIDE 0.9% 500 ML IV ONE (19:50)
[2023-07-13] MEDS ORDERED: D5 0.9 NS 1,000 ML IV SCH (20:00)
[2023-07-13] MEDS ORDERED: NA CHLORIDE 0.9% 50 ML ONE (20:17)
[2023-07-13] MEDS ORDERED: CEFTRIAXONE 1000 MG/VIAL ONE (20:17)
--- NOTE | 2023-07-13 20:26 | P.HP ---
Certification for Inpatient Patient admitted to: Inpatient With expected LOS: >2 Midnights Practitioner: I am a practitioner with admitting privileges, knowledge of patient current condition, hospital course, and medical plan of care. Services: Services provided to patient in accordance with Admission requirements found in Title 42 Section 412.3 of the Code of Federal Regulations Patient History Date of Service: 07/13/23 Reason for admission: Altered mental status History of Present Illness: 68-year-old male with history of end-stage renal disease on hemodialysis, multiple hospitalizations for altered mental status, chronic wounds on bilateral lower extremities was brought to the emergency department due to another episode of altered mental status. Reported to be agitated and hallucinating. Blood work revealed anemia and hypokalemia, UA shows evidence of UTI. Head CT negative, CTA head and neck shows severe stenosis and the vertebral arteries and left carotid artery. Patient experiencing delirium suspected to be related to UTI. She is hospitalized for further management. Allergies codeine Allergy (Intermediate, Verified 08/04/22 13:31) Itching promethazine [From Phenergan] Allergy (Intermediate, Verified 08/04/22 13:31) Itching adhesive tape Adverse Reaction (Verified 08/04/22 13:31) Itching/Hives/Rash Home Medications: Amiodarone HCl [Cordarone*] 200 mg PO DAILY 06/22/23 Apixaban [Eliquis *] 2.5 mg PO BID 06/22/23 Aspirin [Aspirin EC 81 MG] 81 mg PO DAILY 06/22/23 Atorvastatin Calcium [Lipitor] 40 mg PO BEDTIME 06/22/23 Bupropion HCl [Wellbutrin Sr] 150 mg PO DAILY 06/22/23 Cephalexin 500 mg PO DAILY 06/22/23 Cetirizine HCl 10 mg PO DAILY 06/22/23 Insulin Glargine,Hum.rec.anlog [Insulin Glargine] 5 units SQ BEDTIME 06/22/23 Levothyroxine [Synthroid*] 100 mcg PO DAILY 06/22/23 Loratadine 10 mg PO DAILY 06/22/23 Metoprolol Succinate 25 mg PO DAILY 06/22/23 Pantoprazole [Protonix Tab*] 40 mg PO DAILY 06/22/23 Polyethylene Glycol 8000 [Polyethylene Glycol] 17 g PO DAILY 06/22/23 Sacubitril/Valsartan [Entresto 24 mg-26 mg Tablet] 0.5 tab PO BID 06/22/23 - Past Medical/Surgical History Diabetic: Yes -: IDDM -: Hypertension -: Hypothyroidism -: ESRD HD MWF -: hyperlipidemia -: depression -: Paralyzed Stomach -: Neuropathy -: CAD -: Back fusion -: bilateral total knee replacements -: bilateral carpal tunnel sx -: c section -: thyroidectomy -: neck fusion -: PD Cath then removed -: Cholecystectomy Psychosocial/ Personal History: Patient lives at [facility]. - Family History Mother -: Heart disease, Hypertension, Lung disease, Cancer Notes: breast ca Father -: Heart disease, Hypertension, Other (see notes) Notes: Alzheimer's - Social History Alcohol use: No CD- Drugs: No Caffeine use: Yes Review of Systems Other: Unable to obtain review of systems due to altered mental status. Physical Examination - Physical Exam General: In no apparent distress, Confused HEENT: Atraumatic, Normocephalic, Other (Dry mucous membrane), Sclerae nonicteric Neck: Supple, JVD not distended Respiratory: Clear to auscultation bilaterally, Normal air movement Cardiovascular: No edema, Regular rate/rhythm, Normal S1 S2 Gastrointestinal: Normal bowel sounds, Soft and benign, Non-distended, No tenderness Musculoskeletal: No tenderness Integumentary: Other (Ulcers-right inner thigh, left popliteal area and left heel-all looks clean.) Neurological: Other (Confused, moves all extremities.) Lymphatics: No axilla or inguinal lymphadenopathy - Studies Laboratory Data (last 24 hrs) 07/13/23 07/13/23 16:33 16:33 WBC 4.40 Hgb 8.5 L Hct 25.7 L Plt Count 74 L Sodium 137 Potassium 3.0 L BUN 8 Creatinine 1.75 H Glucose 75 Total Bilirubin 0.9 AST 55 H ALT 30 Alkaline Phosphatase 118 H Assessment and Plan - Problems (Diagnosis) (1) Acute metabolic encephalopathy Current Visit: Yes Status: Acute (2) UTI (urinary tract infection) Current Visit: Yes Status: Acute (3) Peripheral arterial disease Current Visit: Yes Status: Acute (4) Carotid artery disease Current Visit: Yes Status: Acute (5) ESRD (end stage renal disease) Current Visit: No Status: Chronic (6) Hypothyroidism Current Visit: No Status: Chronic Qualifiers: Hypothyroidism type: acquired Qualified Code(s): E03.9 - Hypothyroidism, unspecified (7) Type 2 diabetes mellitus Current Visit: No Status: Chronic Qualifiers: Diabetes mellitus detention insulin use: with parts counterman use Diabetes mellitus complication status: with hyperglycemia Qualified Code(s): E11.65 - Type 2 diabetes mellitus with hyperglycemia; Z79.4 - senior living (current) use of insulin - Plan Acute metabolic encephalopathy/UTI Admit to the medical floor Start empiric antibiotic-IV cefepime and vancomycin Infectious disease consulted Follow urine cultures Follow blood cultures. Haldol IV as needed for agitation End Stage renal disease on hemodialysis Patient with low uremia level ESRD likely not contributing to the [facility] Nephrology consult-Dr. Flores Routine hemodialysis per nephrology. Multiple leg ulcers Ulcers look clean. Patient recently received prolonged IV Zosyn for Pseudomonas infected ulcers Wound care consult. Peripheral arterial disease/carotid artery disease Patient is currently clinically unstable for any vascular intervention Outpatient referral to vascular surgery was clinically stable. Diabetes mellitus type 2 Insulin sliding scale for glucose management. Elevated troponin Patient with chronic troponin elevation. Negative troponin likely secondary to decreased clearance from ESRD. DVT prophylaxis: Heparin SQ. - Advance Directives Does patient have a Living Will: No Does patient have a Durable POA for Healthcare: No
[2023-07-13] MEDS ORDERED: VANCOMYCIN 1 GM in NA CHLORIDE 0.9% 250 ML IVPB SCH (21:00)
[2023-07-13] MEDS: INSULIN REGULAR (HUMAN) 100 UNIT/ML SQ SCH (21:00)
[2023-07-13 21:06] LABS: Arterial Blood Carboxyhemoglob 1.7 % (0-1.5); Blood Gas Oxyhemoglobin 95.5 % (94-97); Blood O2 Saturation 98.7 % (92-98.5)
[2023-07-14 00:27] VITALS: BMI 33.9
[2023-07-14] MEDS ORDERED: HEPARIN 5000 UNIT/ML 1 ML VIAL SQ SCH (01:00)
[2023-07-14] MEDS ORDERED: HALOPERIDOL LACT 5 MG/ML INJ IV PRN (01:07)
[2023-07-14] MEDS: CEFEPIME 1 GM in NA CHLORIDE 0.9% 100 ML IV SCH ×2 (02:47→08:08)
[2023-07-14] MEDS ORDERED: HALOPERIDOL LACT 5 MG/ML INJ IV ONE (03:01)
[2023-07-14] MEDS: INSULIN REGULAR (HUMAN) 100 UNIT/ML SQ SCH ×4 (07:30→20:45)
[2023-07-14 07:39] LABS: Absolute Lymphocytes (CBC) 0.4 K/uL (0.7-4.9); Hematocrit 27.1 % (36.0-45.0); MCV 93.6 fL (80-100); MPV 8.1 fL (7.6-11.3); Platelets 64 thou/uL (152-406); RBC Red Blood Cell Count 2.89 M/uL (3.86-4.86)
[2023-07-14 08:08] LABS: Albumin 2.8 g/dL (3.4-5.0); Bilirubin Total 0.9 mg/dL (0.2-1.0); Phosphorus 3.4 mg/dL (2.5-4.9); Potassium 3.2 mEq/L (3.5-5.1); Protein, Total 6.5 g/dL (6.4-8.2)
[2023-07-14] MEDS: POTASSIUM CL SA 10 MEQ TAB PO SCH ×2 (08:15→14:41)
[2023-07-14 08:24] LABS: Thyroid Stimulating Hormone 16.6 uIU/mL (0.358-3.740)
--- NOTE | 2023-07-14 09:51 | P.PN ---
Subjective Date of Service: 07/14/23 Chief Complaint: Altered mental status Pt is trying to sit on the edge of the bed. She is confused. AAOx1. She is getting iv zosyn. No other complaints overnight. Review of Systems Unremarkable General: Unremarkable Eyes: Unremarkable ENT: Unremarkable Respiratory: Unremarkable Cardiovascular: Unremarkable Gastrointestinal: Unremarkable Genitourinary: Unremarkable Musculoskeletal: Unremarkable Integumentary: Rash, Lesions Neurological: Unremarkable Lymphatics: Unremarkable Physical Examination - Vital Signs Temperature: 97.9 F Blood Pressure: 146/56 Pulse: 71 Respirations: 18 Pulse Ox (%): 91 - Physical Exam General: Alert, In no apparent distress, Oriented x1 HEENT: Atraumatic, Normocephalic Neck: Supple, 2+ carotid pulse no bruit Respiratory: Clear to auscultation bilaterally, Normal air movement Cardiovascular: No edema, Normal pulses, Regular rate/rhythm, Normal S1 S2 Capillary refill: <2 Seconds Gastrointestinal: Normal bowel sounds, Soft and benign, Non-distended Musculoskeletal: No clubbing, No swelling Integumentary: Rash(es), Skin breakdown, Skin lesion Neurological: Normal strength at 5/5 x4 extr, Sensation intact Lymphatics: No axilla or inguinal lymphadenopathy - Studies Laboratory Data (last 24 hrs) 07/13/23 07/13/23 16:33 16:33 WBC 4.40 Hgb 8.5 L Hct 25.7 L Plt Count 74 L Sodium 137 Potassium 3.0 L BUN 8 Creatinine 1.75 H Glucose 75 Total Bilirubin 0.9 AST 55 H ALT 30 Alkaline Phosphatase 118 H Assessment And Plan - Plan Acute metabolic encephalopathy/UTI: CT head is unremarkable. Will continue iv cefepime. Off iv vanc. Will follow up blood and urine cultures. Continue prn haldol for agitation. End Stage renal disease on hemodialysis: Will continue routine dialysis. Consulted Nephrology, Dr. Flores Multiple leg ulcers: Will continue iv abx. Continue wound care. Peripheral arterial disease/carotid artery disease: Pt need to follow up with a vascular surgery in clinic. Patient is currently clinically unstable for any vascular intervention Diabetes mellitus type 2: Continue accuchek, SSI and ADA diet Elevated troponin: Likely due to ESRD. Pt denies any chest pain. Will monitor. DVT prophylaxis: Heparin SQ. Dispo: pending hospital course
[2023-07-14] MEDS ORDERED: POTASSIUM CL SA 10 MEQ TAB PO ONE (14:34)
[2023-07-14] MEDS: PIPER TAZO 3.375 GM in NA CHLORIDE 0.9% 100 ML IV SCH ×2 (14:41→20:48)
--- NOTE | 2023-07-14 14:43 | CON ---
Date of Consultation: 07/14/2023 Reason For Consultation: Elevated BUN and creatinine, end-stage renal disease. History Of Present Illness: This is a pleasant 68-year-old female, well known to me from dialysis wi th significant past medical history of end-stage renal disease, [facility], hypertension, hyperlipidemia, diabetes, complicated with neuropathy and nephropathy , CAD, status post CABG, peripheral vascular disease, multiple wounds on the extremity. The patient came to the hospital with UTI. The patient was admitted for further treatment. The patient supposed to have dialysis today. Past Medical History: Includes: 1.End-stage renal disease, on hemodialysis. 2.Hypertension. 3.CAD. 4.Congestive heart failure. Home Medications: Include amiodarone, Eliquis, aspirin, atorvastatin, cephalexin, levothyroxine, met oprolol, pantoprazole, Entresto. Allergies: TO CODEINE, PROMETHAZINE. Past Surgical History: Includes PD catheter placement and removal, cholecystectomy, angiogram, C-sec tion, bilateral knee replacement, tunneled hemodialysis catheter. Family History: Positive for diabetes. Social History: Denied smoking. Denied drinking. Denied drug abuse. Review of Systems: Head and Neck: No red eye. No ear pain. GI: No nausea, no vomiting. : No polyuria, no dysuria, no hematuria. Websphere Commerce Architect: No vaginal discharge. Respiratory: No shortness of breath. Cardiovascular: No chest pain. Endocrine: No polydipsia. Skin: No rash. Physical Examination: Vital Signs: Blood pressure of 156/56, pulse of 71, afebrile. Chest: Faint rales bilateral. Heart: S1, S2, systolic murmur. Abdomen: Soft, nontender. Extremities: Dressing on the ankles, trace edema. Neurologic: Alert, no focality. Labs: Hemoglobin 8.8. Sodium 138, potassium 3.2, bicarb 24, BUN 11, creatinine 2.4. Calcium 8.9, p hosphorus 3.4. Current Medications: Include: 1.Zosyn. 2.Zofran. 3.D5 half. Assessment And Plan: 1.End-stage renal disease, over-volume. I am going to go ahead and discontinue IV fluid. We will a rrange for the patient to have dialysis and we will monitor. 2.Hypertension, controlled. We will utilize blood pressure for more ultrafiltration. 3.Over-volume, the patient is going to be challenged. 4.Anemia of chronic kidney disease. Resume XENIA. 5.Secondary hyperpara. We will follow up binder and phosphorus level. 6.UTI. Continue current antibiotic dose appropriate. Will follow up with primary. 7.Diabetes, as by primary. Time spent examining the patient [id number], reviewing data, lab and radiology, placing order, disc ussing the case with the patient, discussing the case with dialysis nurse and floor nurse, with hospitalist more than 35 minutes. CR Voice ID: [id number] Report ID: [id number]
[2023-07-14] MEDS ORDERED: CEFEPIME 1 GM in NA CHLORIDE 0.9% 100 ML IV SCH (21:00)
[2023-07-15] MEDS: ACETAMINOPHEN 325 MG TABLET PO PRN ×2 (01:21→18:54)
[2023-07-15] MEDS: ONDANSETRON 4 MG/2 ML VIAL IV PRN (01:59)
[2023-07-15] MEDS: INSULIN REGULAR (HUMAN) 100 UNIT/ML SQ SCH ×4 (07:30→20:38)
--- NOTE | 2023-07-15 09:37 | P.PN ---
Subjective Date of Service: 07/15/23 Chief Complaint: Altered mental status Pt is resting comfortably in bed. She is confused. AAOx2. Currently using 3L BNC. She is getting iv zosyn. No other complaints overnight. Review of Systems 10-point ROS is otherwise unremarkable Physical Examination - Vital Signs Temperature: 97.0 F Blood Pressure: 162/84 Pulse: 66 Respirations: 18 Pulse Ox (%): 92 - Physical Exam General: Alert, In no apparent distress, Oriented x2 HEENT: Atraumatic, Normocephalic Neck: Supple, 2+ carotid pulse no bruit Respiratory: Clear to auscultation bilaterally, Normal air movement Cardiovascular: No edema, Normal pulses, Regular rate/rhythm, Normal S1 S2 Capillary refill: <2 Seconds Gastrointestinal: Normal bowel sounds, Soft and benign, Non-distended Musculoskeletal: No clubbing, No swelling Integumentary: Rash(es), Skin breakdown, Skin lesion Neurological: Normal strength at 5/5 x4 extr, Sensation intact, Abnormal affect Lymphatics: No axilla or inguinal lymphadenopathy Assessment And Plan - Plan Acute metabolic encephalopathy/UTI: CT head is unremarkable. Will continue iv zosyn. Off iv vanc and cefepime. Will follow up blood and urine cultures. Cont inue prn haldol for agitation. End Stage renal disease on hemodialysis: Will continue routine dialysis. Consulted Nephrology, Dr. Flores Multiple leg ulcers: Will continue iv abx. Continue wound care. Peripheral arterial disease/carotid artery disease: Pt need to follow up with a vascular surgery in clinic. Patient is currently clinically unstable for any vascular intervention Htn: will continue metoprolol HLD: continue statin Hypothyroidism: synthroid. GERD: protonix Diabetes mellitus type 2: Continue accuchek, SSI and ADA diet Elevated troponin: Likely due to ESRD. Pt denies any chest pain. Will monitor. DVT prophylaxis: Heparin SQ. Dispo: pending hospital course
[2023-07-15] MEDS: ASPIRIN EC 81 MG TAB PO SCH (10:00)
[2023-07-15 10:05] LABS: Absolute Lymphocytes (CBC) 0.4 K/uL (0.7-4.9); Hematocrit 30.7 % (36.0-45.0); Platelets 71 thou/uL (152-406)
[2023-07-15 10:22] LABS: Phosphorus 4.9 mg/dL (2.5-4.9); Potassium 4.2 mEq/L (3.5-5.1)
[2023-07-15] MEDS: PIPER TAZO 3.375 GM in NA CHLORIDE 0.9% 100 ML IV SCH ×2 (11:18→20:40)
--- NOTE | 2023-07-15 11:28 | PN ---
Date of Progress Note: 07/15/2023 Subjective: The patient is doing well. The patient had no event. Physical Examination: Vital Signs: Blood pressure 162/84, pulse of 66, afebrile. Chest: Clear to auscultation. Heart: S1, S2. Regular. Abdomen: Soft, nontender. Extremities: Dressing on the feet. Neurologic: Alert. No focality. Laboratory Data: Hemoglobin 9.7. Sodium 139, potassium 4.2, bicarb 23, BUN 19, creatinine 3.1, calc ium 9.5, phosphorus 4.9. Current Medications: The patient on include: 1.Aspirin. 2.Zosyn. 3.Eliquis. 4.Epogen. 5.Amiodarone. 6.Atorvastatin 40. 7.Metoprolol 25. 8.Entresto. 9.Haloperidol. Assessment And Plan: 1.End-stage renal disease, over volume. We will arrange for dialysis today, then we will go back to her schedule TTS. 2.Hypertension, controlled, optimal. Continue current treatment. 3.Over volume. We will try to achieve better volume control today with challenge with the dialysis. 4.Secondary hyperparathyroidism, stable. No need for binder. 5.Anemia of chronic kidney disease. Continue XENIA. JOSÉ MIGUEL/RENÉ Voice ID: [id number] Report ID: [id number]
[2023-07-15] MEDS: AMIODARONE HCL 200 MG TAB PO SCH (11:32)
[2023-07-15] MEDS: METOPROLOL XL 25 MG TAB PO SCH (11:32)
[2023-07-15] MEDS: APIXABAN 2.5 MG TABLET PO SCH ×2 (11:33→20:40)
[2023-07-15] MEDS: SACUBITRIL/VALSARTAN 24/26 MG TAB PO SCH ×2 (11:33→20:40)
[2023-07-15] MEDS: LEVOTHYROXINE SOD 0.1 MG TAB PO SCH (11:33)
[2023-07-15] MEDS: PANTOPRAZOLE 40MG TABLET PO SCH (11:34)
[2023-07-15] MEDS: Oxycodone HCl/Acetaminophen 5/325 MG TAB PO PRN (15:08)
[2023-07-15] MEDS: EPOETIN ALFA 10,000 UNIT/ML VIAL IV SCH (17:00)
[2023-07-15] MEDS: ATORVASTATIN 40 MG TAB PO SCH (20:40)
[2023-07-16] MEDS: LEVOTHYROXINE SOD 0.1 MG TAB PO SCH (05:10)
--- NOTE | 2023-07-16 06:05 | P.PN ---
Date of Service: 07/16/23 Subjective: Physical Exam: Vitals: reviewed GEN: Alert, orientedx2, NAD HEENT: Normal conjunctiva, sclera anicteric CV: Regular rate & rhythm, no edema Pulm: Nonlabored respiraitons, clear bilaterally ABD: Soft, nontender, nondistended MSK: No joint tenderness Integumentary: Rash(es), Skin breakdown, Skin lesion Neuro: Normal speech, abnormal affect Problem List: Acute metabolic encephalopathy likely secondary to UTI Multiple leg ulcers ESRD on HD PAD/CAD NSTEMI DM2 Hypertension Hyperlipidemia Hypothyroidism GERD Plan: Acute metabolic encephalopathy likely secondary to UTI CT head is unremarkable. Previously on vanc / cefepime Continue IV zosyn urine cx: mixed fercho ID Consulted ESRD on HD Nephrology consulted Acute HD per nephrology Multiple leg ulcers Patient recently received prolonged IV Zosyn for Pseudomonas infected ulcers Continue local wound care Wound care consult. PAD/CAD NSTEMI Pt need to follow up with a vascular surgery in clinic. Patient is currently clinically unstable for any vascular intervention Initial troponin elevated /5. monitor on tele likely demand ischemia secondary to ESRD. No chest pain. Continue to monitor DM2 accuchek, SSI Hypertension Hyperlipidemia Hypothyroidism GERD continue home meds as appropriate DVT prophylaxis: Heparin SQ.
[2023-07-16 06:23] LABS: Absolute Lymphocytes (CBC) 0.4 K/uL (0.7-4.9); Hematocrit 30.5 % (36.0-45.0); Lymphocytes % 5.5 % (15.3-44.8); MCV 95.4 fL (80-100); MPV 8.7 fL (7.6-11.3); Platelets 82 thou/uL (152-406)
[2023-07-16 06:33] LABS: Albumin 2.8 g/dL (3.4-5.0); Phosphorus 3.5 mg/dL (2.5-4.9); Potassium 3.7 mEq/L (3.5-5.1)
[2023-07-16] MEDS: INSULIN REGULAR (HUMAN) 100 UNIT/ML SQ SCH ×4 (07:30→21:50)
--- NOTE | 2023-07-16 07:43 | P.PN ---
Subjective Date of Service: 07/16/23 Chief Complaint: Altered mental status More alert today, no complaint of pain, fever, nausea vomiting diarrhea, - Physical Exam General: Alert, In no apparent distress, Oriented x2 HEENT: Atraumatic, Normocephalic Neck: Supple, 2+ carotid pulse no bruit Respiratory: Clear to auscultation bilaterally, Normal air movement Cardiovascular: No edema, Normal pulses, Regular rate/rhythm, Normal S1 S2 Capillary refill: <2 Seconds Gastrointestinal: Normal bowel sounds, Soft and benign, Non-distended Musculoskeletal: No clubbing, No swelling Integumentary: Rash(es), Skin breakdown, Skin lesion Neurological: Normal strength at 5/5 x4 extr, Sensation intact, Abnormal affect Lymphatics: No axilla or inguinal lymphadenopathy Physical Examination - Vital Signs Temperature: 96.8 F Blood Pressure: 161/63 Pulse: 66 Respirations: 16 Pulse Ox (%): 98 - Studies Microbiology Data (last 24 hrs): 07/13/23 17:58 Clean Catch Urine Swiss Count - Final BETWEEN 10,000 & 100,000 CFU/ML 07/13/23 17:58 Clean Catch Urine - Final MIXED CINDY. Assessment And Plan - Plan Assessment plan Acute metabolic encephalopathy/UTI: CT head is unremarkable. Will continue iv zosyn. Off iv vanc and cefepime. Will follow up blood and urine cultures. Continue prn haldol for agitation. CTA of the neck, head, IMPRESSION: Marked plaque mid to distal left common carotid artery results in an approximately 80% stenosis Moderate plaque right common carotid artery Suboptimal evaluation of the right carotid bulb. Plaque resulting in moderate stenosis suspected Marked calcified plaque distal right and left vertebral arteries resulting in severe stenose IV Zosyn, End Stage renal disease on hemodialysis: Will continue routine dialysis. Consulted Nephrology, Dr. Flores Microcytic anemia likely secondary to CKD Trend H&H hemoglobin 9.7-9.9 Elevated troponin: Likely due to ESRD. Pt denies any chest pain. Will monitor. Chest x-ray FINDINGS: Mild bilateral interstitial lung opacities Moderate cardiomegaly. Post surgical changes involve the chest Central venous line place IMPRESSION: Mild bilateral interstitial lung opacities may indicate mild interstitial pulmonary edema Multiple leg ulcers: Left leg wound Will continue iv abx. Continue wound care. Wound care per Wound care team, ID following, she has been seen by surg in past severe Peripheral arterial disease/carotid artery disease: Pt need to follow up with a vascular surgery in clinic. Patient is currently clinically unstable for any vascular intervention Htn: HLD: continue statin, will continue metoprolol Hypothyroidism: synthroid. GERD: protonix Diabetes mellitus type 2: Continue accuchek, SSI and ADA diet DVT prophylaxis: Eliquis Dispo: pending hospital course
[2023-07-16] MEDS ORDERED: POTASSIUM CL SA 10 MEQ TAB PO ONE (09:00)
--- NOTE | 2023-07-16 09:22 | P.CNS ---
Date of Consult: 07/16/23 Reason for Consult: sepsis Chief Complaint: Altered mental status History of Present Illness: Patient is a 68 yo female with a past medical history of ESRD, chronic nonhealing wounds, hypothyroidism, hypertension, diabetes mellitus type II who presented to the ED due to altered mental status. CTA neck showing "Marked plaque mid to distal left common carotid artery results in an approximately 80% stenosis. Moderate plaque right common carotid artery. Suboptimal evaluation of the right carotid bulb. Plaque resulting in moderate stenosis suspected. Marked calcified plaque distal right and left vertebral arteries resulting in severe stenoses" ID was consulted for suspected urinary tract infection, history of multi-drug resistant infections. Allergies codeine Allergy (Intermediate, Verified 08/04/22 13:31) Itching promethazine [From Phenergan] Allergy (Intermediate, Verified 08/04/22 13:31) Itching adhesive tape Adverse Reaction (Verified 08/04/22 13:31) Itching/Hives/Rash Home medications list reviewed: Yes Home Medications: Amiodarone HCl [Cordarone*] 200 mg PO DAILY 06/22/23 Apixaban [Eliquis *] 2.5 mg PO BID 06/22/23 Aspirin [Aspirin EC 81 MG] 81 mg PO DAILY 06/22/23 Atorvastatin Calcium [Lipitor] 40 mg PO BEDTIME 06/22/23 Bupropion HCl [Wellbutrin Sr] 150 mg PO DAILY 06/22/23 Cephalexin 500 mg PO DAILY 06/22/23 Cetirizine HCl 10 mg PO DAILY 06/22/23 Insulin Glargine,Hum.rec.anlog [Insulin Glargine] 5 units SQ BEDTIME 06/22/23 Levothyroxine [Synthroid*] 100 mcg PO DAILY 06/22/23 Loratadine 10 mg PO DAILY 06/22/23 Metoprolol Succinate 25 mg PO DAILY 06/22/23 Pantoprazole [Protonix Tab*] 40 mg PO DAILY 06/22/23 Polyethylene Glycol 8000 [Polyethylene Glycol] 17 g PO DAILY 06/22/23 Sacubitril/Valsartan [Entresto 24 mg-26 mg Tablet] 0.5 tab PO BID 06/22/23 - Past Medical/Surgical History Diabetic: Yes -: IDDM -: Hypertension -: Hypothyroidism -: ESRD HD MWF -: hyperlipidemia -: depression -: Paralyzed Stomach -: Neuropathy -: CAD -: Back fusion -: bilateral total knee replacements -: bilateral carpal tunnel sx -: c section -: thyroidectomy -: neck fusion -: PD Cath then removed -: Cholecystectomy Psychosocial/ Personal History: Patient lives at [facility]. - Family History Mother Medical History: Heart disease, Hypertension, Lung disease, Cancer Notes: breast ca Father Medical History: Heart disease, Hypertension, Other (see notes) Notes: Alzheimer's - Social History Smoking Status: Unknown if ever smoked Alcohol use: No CD- Drugs: No Caffeine use: Yes Review of Systems 10-point ROS is otherwise unremarkable Integumentary: Bruising, Other (chronic nonhealing wounds ) Physical Examination Temp Pulse Resp BP Pulse Ox 96.8 F 66 16 161/63 H 98 07/16/23 07:58 07/16/23 07:58 07/16/23 07:58 07/16/23 07:58 07/16/23 07:58 General: In no apparent distress, Oriented x2 HEENT: Atraumatic Respiratory: Normal air movement, Diminished, Other (on room air) Cardiovascular: Regular rate/rhythm, Abnormal pulses Gastrointestinal: Normal bowel sounds, Soft and benign Integumentary: Other (RLE wounds with dressing clean dry and intact. Scattered ecchymosis of bialteral upper and lower extrmeities. ) Laboratory Data - Reviewed Microbiology Data - Reviewed Imagings Data: - Reviewed Conclusions/Impression: Problem List Acute Metabolic Encephalopathy Severe peripheral arterial disease ESRD on hemodialysis Anemia of chronic disease Chronic lower extremity wounds Hypertension Hyperlipidemia Hypothyroidism GERD Diabetes Mellitus type II Thrombocytopenia - Currently on Zosyn (started 07/14) given history of pseudomonas wound infection - Afebrile - Urine culture: mixed fercho - XR Chest 07/13: "Mild bilateral interstitial lung opacities may indicate mild interstitial pulmonary edema" - CTA Head 07/13: "No significant abnormality is displayed ." - Neck CTA 07/13: "Marked plaque mid to distal left common carotid artery results in an approximately 80% stenosis. Moderate plaque right common carotid artery. Suboptimal evaluation of the right carotid bulb. Plaque resulting in moderate stenosis suspected. Marked calcified plaque distal right and left vertebral arteries resulting in severe stenoses" Recommendations - Continue Zosyn for now. Monitor WBC and fever trends. - Wound care per wound care team - Strict blood glucose control - ESRD: nephrology following - PAD: follow up with vascular surgery as outpatient - Follow up with wound care team as outpatient. Case discussed with Mariaa Farrar
[2023-07-16] MEDS: SACUBITRIL/VALSARTAN 24/26 MG TAB PO SCH ×2 (10:00→21:30)
[2023-07-16] MEDS: AMIODARONE HCL 200 MG TAB PO SCH (10:00)
[2023-07-16] MEDS: METOPROLOL XL 25 MG TAB PO SCH (10:00)
[2023-07-16] MEDS: ASPIRIN EC 81 MG TAB PO SCH (10:01)
[2023-07-16] MEDS: PIPER TAZO 3.375 GM in NA CHLORIDE 0.9% 100 ML IV SCH (10:01)
[2023-07-16] MEDS: APIXABAN 2.5 MG TABLET PO SCH ×2 (10:01→21:30)
[2023-07-16] MEDS: PANTOPRAZOLE 40MG TABLET PO SCH (10:01)
--- NOTE | 2023-07-16 12:29 | EKG ---
Test Date: 2023-07-13 Test Time: 15:45:52 Cash Clerk: MILENA MEASUREMENT RESULTS: Intervals: Rate: 71 NJ: 164 QRSD: 116 QT: 384 QTc: 417 Delta: P: 61 NJ: 164 QRS: 12 T: 124 INTERPRETIVE STATEMENTS: Normal sinus rhythm Nonspecific ST and T wave abnormality Abnormal ECG Compared to ECG 06/14/2023 16:57:48 ST (T wave) deviation now present Prolonged QT interval no longer present Electronically Signed On 07-16-23 12:22:18 CAR [employer]IFTER by Imer Lantigua
--- NOTE | 2023-07-16 17:08 | P.DS ---
Admission Date: 07/13/23 Discharge Date: 07/16/23 Disposition: TRANSFER TO ASSISTED Discharge Condition: GOOD Reason for Admission: Altered mental status Brief History of Present Illness: 68-year-old female with history of end-stage renal disease on hemodialysis, multiple hospitalizations for altered mental status, chronic wounds on bilateral lower extremities was brought to the emergency department due to another episode of altered mental status. Reported to be agitated and hallucinating. Blood work revealed anemia and hypokalemia, UA shows evidence of UTI. Head CT negative, CTA head and neck shows severe stenosis and the vertebral arteries and left carotid artery. Patient experiencing delirium suspected to be related to UTI. She is hospitalized for further management. - Physical Exam General: In no apparent distress, Confused HEENT: Atraumatic, Normocephalic, Other (Dry mucous membrane), Sclerae nonicteric Neck: Supple, JVD not distended Respiratory: Clear to auscultation bilaterally, Normal air movement Cardiovascular: No edema, Regular rate/rhythm, Normal S1 S2 Gastrointestinal: Normal bowel sounds, Soft and benign, Non-distended, No tenderness Musculoskeletal: No tenderness Integumentary: Other (Ulcers-right inner thigh, left popliteal area and left heel-all looks clean.) Neurological: Other (Confused, moves all extremities.) Lymphatics: No axilla or inguinal lymphadenopathy Hospital Course: Ms. Meseret Pollard presented with altered mental status. Was noted to have metabolic encephalopathy secondary to acute cystitis. CT of the head was notable to have moderate stenosis, coronary artery stenosis She was treated with IV antibiotics. Her condition improved with treatment of IV antibiotics for 3 days. Stable for discharge with follow-up appointment PCP, nephrology, wound care outpatient. She can continue her previous home medications. End Stage renal disease on hemodialysis: Continue hemodialysis outpatient Multiple leg ulcers: Left leg wound Continue wound care. Monitor for worsening signs and symptoms of infection severe Peripheral arterial disease/carotid artery disease: Pt need to follow up with a vascular surgery in clinic. Patient is currently clinically unstable for any vascular intervention -DC IV and DC to assisted -Follow-up with PCP in 1 to 2 weeks -Follow-up with Neurology in 1 to 2 weeks -Follow-up with Nephrology for HD -Please call Dr. Dhillon at [phone] if any questions regarding hospital stay -Please call nursing station at [phone] if any nursing or medication questions -Return to the emergency room if symptoms worsen Vital Signs/Physical Exam: Temp Pulse Resp BP Pulse Ox 96.5 F L 64 16 185/88 H 100 07/16/23 12:00 07/16/23 12:00 07/16/23 12:00 07/16/23 12:00 07/16/23 12:00 Laboratory Data at Discharge: WBC 7.40 thou/uL (4.3-10.9) 07/16/23 05:41 Hgb 9.9 g/dL (12.0-15.0) L 07/16/23 05:41 Hct 30.5 % (36.0-45.0) L 07/16/23 05:41 Plt Count 82 thou/uL (152-406) L 07/16/23 05:41 Sodium 139 mEq/L (136-145) 07/16/23 05:41 Potassium 3.7 mEq/L (3.5-5.1) 07/16/23 05:41 BUN 15 mg/dL (7-18) 07/16/23 05:41 Creatinine 2.69 mg/dL (0.55-1.02) H 07/16/23 05:41 Glucose 111 mg/dL (74-106) H 07/16/23 05:41 Phosphorus 3.5 mg/dL (2.5-4.9) 07/16/23 05:41 Magnesium 2.0 mg/dL (1.6-2.4) 07/14/23 07:22 Total Bilirubin 0.9 mg/dL (0.2-1.0) 07/14/23 07:22 AST 59 U/L (15-37) H 07/14/23 07:22 ALT 30 U/L (13-56) 07/14/23 07:22 Alkaline Phosphatase 129 U/L (45-117) H 07/14/23 07:22 Home Medications: Amiodarone HCl [Cordarone*] 200 mg PO DAILY 06/22/23 Apixaban [Eliquis *] 2.5 mg PO BID 06/22/23 Aspirin [Aspirin EC 81 MG] 81 mg PO DAILY 06/22/23 Atorvastatin Calcium [Lipitor] 40 mg PO BEDTIME 06/22/23 Bupropion HCl [Wellbutrin Sr] 150 mg PO DAILY 06/22/23 Cephalexin 500 mg PO DAILY 06/22/23 Cetirizine HCl 10 mg PO DAILY 06/22/23 Insulin Glargine,Hum.rec.anlog [Insulin Glargine] 5 units SQ BEDTIME 06/22/23 Levothyroxine [Synthroid*] 100 mcg PO DAILY 06/22/23 Loratadine 10 mg PO DAILY 06/22/23 Metoprolol Succinate 25 mg PO DAILY 06/22/23 Pantoprazole [Protonix Tab*] 40 mg PO DAILY 06/22/23 Polyethylene Glycol 8000 [Polyethylene Glycol] 17 g PO DAILY 06/22/23 Sacubitril/Valsartan [Entresto 24 mg-26 mg Tablet] 0.5 tab PO BID 06/22/23 Physician Discharge Instructions: -DC IV and DC to assisted -Follow-up with PCP in 1 to 2 weeks -Follow-up with Neurology in 1 to 2 weeks -Follow-up with Nephrology for HD -Please call Dr. Dhillon at [phone] if any questions regarding hospital stay -Please call nursing station at [phone] if any nursing or medication questions -Return to the emergency room if symptoms worsen Diet: AHA Activity: Fall precautions Followup: NONE,NONE [Primary Care Provider] - Time spent managing pt's care (in minutes): 45
[2023-07-16] MEDS: Oxycodone HCl/Acetaminophen 5/325 MG TAB PO PRN ×2 (19:08→23:25)
[2023-07-16] MEDS: ATORVASTATIN 40 MG TAB PO SCH (21:30)
--- NOTE | 2023-07-16 23:58 | PN ---
Date of Progress Note: 07/16/2023 Chief Complaint: End-stage renal disease, on dialysis. Volume overload. Subjective: The patient received additional dialysis treatment for volume control. She had ultrafil tration done with dialysis yesterday. She is feeling better. She denies chest pain, palpitation. Physical Examination: Lungs: Clear to auscultation bilaterally. Heart: S1, S2. Abdomen: Soft. Extremities: Dressing in place. Impression And Plan: 1.End-stage renal disease, volume overload. Continue p.o. fluid restriction. Next dialysis is sche duled for tomorrow. Continue low-sodium diet. 2.Hypertension. Continue current treatment. Adjust medication after dialysis is done with ultrafil tration when euvolemia is obtained. 3.Volume overload. The patient will continue low-sodium diet and dialysis 3 times per week. The tim peace may require extra dialysis session for ultrafiltration for management of congestive heart failu re. 4.Secondary hyperparathyroidism. Phosphorus level is controlled. Binders on hold. 5.Anemia of chronic kidney disease. Continue XENIA. EB/MODL Voice ID: [id number] Report ID: [id number]
[2023-07-17 02:59] LABS: Absolute Lymphocytes (CBC) 0.5 K/uL (0.7-4.9); Hematocrit 28.5 % (36.0-45.0); Lymphocytes % 8.3 % (15.3-44.8); MCV 95.8 fL (80-100); MPV 8.9 fL (7.6-11.3); Platelets 78 thou/uL (152-406); RBC Red Blood Cell Count 2.98 M/uL (3.86-4.86)
[2023-07-17 03:07] LABS: Albumin 2.6 g/dL (3.4-5.0); Potassium 3.8 mEq/L (3.5-5.1)
[2023-07-17] MEDS: ONDANSETRON 4 MG/2 ML VIAL IV PRN ×3 (05:36→22:22)
[2023-07-17] MEDS: LEVOTHYROXINE SOD 0.1 MG TAB PO SCH (05:37)
--- NOTE | 2023-07-17 06:45 | P.PN ---
Subjective Date of Service: 07/17/23 Chief Complaint: Altered mental status Pt is resting comfortably in bed. more alert, oriented today, No complaints overnight. Physical Exam: Vitals: reviewed GEN: Alert, orientedx2, NAD HEENT: Normal conjunctiva, sclera anicteric CV: Regular rate & rhythm, no edema Pulm: Nonlabored respiraitons, clear bilaterally ABD: Soft, nontender, nondistended MSK: No joint tenderness Integumentary: Rash(es), Skin breakdown, Skin lesion Neuro: Normal speech, abnormal affect Review of Systems per HPI Physical Examination - Vital Signs Temperature: 97.0 F Blood Pressure: 151/72 Pulse: 60 Respirations: 16 Pulse Ox (%): 100 - Studies Microbiology Data (last 24 hrs): 07/13/23 17:58 Clean Catch Urine [place] Count - Final BETWEEN 10,000 & 100,000 CFU/ML 07/13/23 17:58 Clean Catch Urine - Final MIXED FERCHO. Assessment And Plan - Plan Problem List: Acute metabolic encephalopathy likely secondary to UTI Multiple leg ulcers ESRD on HD PAD/CAD NSTEMI DM2 Hypertension Hyperlipidemia Hypothyroidism GERD Plan: Acute metabolic encephalopathy likely secondary to UTI CT head is unremarkable. Previously on vanc / cefepime Continue IV zosyn urine cx: mixed fercho ID Consulted ESRD on HD Nephrology consulted Acute HD per nephrology Multiple leg ulcers Patient recently received prolonged IV Zosyn for Pseudomonas infected ulcers Continue local wound care Wound care consult. PAD/CAD NSTEMI Pt need to follow up with a vascular surgery in clinic. Patient is currently clinically unstable for any vascular intervention Initial troponin elevated 1/5. monitor on tele likely demand ischemia secondary to ESRD. No chest pain. Continue to monitor DM2 accuchek, SSI Hypertension Hyperlipidemia Hypothyroidism GERD continue home meds as appropriate DVT prophylaxis: Heparin SQ. Discharge Plan: Senior Care - Code Status/Comfort Care Code Status: Full Code Critical Care: No Time Spent Managing PTS Care (In Minutes): 35
[2023-07-17] MEDS: INSULIN REGULAR (HUMAN) 100 UNIT/ML SQ SCH ×4 (07:30→20:26)
--- NOTE | 2023-07-17 08:54 | P.PN ---
Date of Service: 07/17/23 Chief Complaint: Altered mental status Subjective: In no apparent distress. Denies any new or worsening complaints at this time. No acute events reported overnight. Pending discharge to SNF. Physical Examination Temp Pulse Resp BP Pulse Ox 97.0 F 60 16 151/72 H 100 07/17/23 06:57 07/17/23 06:57 07/17/23 06:57 07/17/23 06:57 07/17/23 06:57 General: In no apparent distress, Oriented x3. Respiratory: Normal air movement, Diminished. Unlabored respirations. Cardiovascular: Regular rate/rhythm, Abnormal pulses Gastrointestinal: Normal bowel sounds, Soft and benign Integumentary: RLE wounds with dressing clean dry and intact. Scattered ecchymosis of bialteral upper and lower extrmeities. Laboratory Data - Reviewed Microbiology Data - Reviewed Imagings Data: - Reviewed Medications List: Reviewed Assessment and Plan Problem List Acute Metabolic Encephalopathy Severe peripheral arterial disease ESRD on hemodialysis Anemia of chronic disease Chronic lower extremity wounds Hypertension Hyperlipidemia Hypothyroidism GERD Diabetes Mellitus type II Thrombocytopenia - Previously on Zosyn (07/14-07/16) - Afebrile - Urine culture: mixed fercho - XR Chest 07/13: "Mild bilateral interstitial lung opacities may indicate mild interstitial pulmonary edema" - CTA Head 07/13: "No significant abnormality is displayed ." - Neck CTA 07/13: "Marked plaque mid to distal left common carotid artery results in an approximately 80% stenosis. Moderate plaque right common carotid artery. Suboptimal evaluation of the right carotid bulb. Plaque resulting in moderate stenosis suspected. Marked calcified plaque distal right and left vertebral arteries resulting in severe stenoses" Recommendations - Discontinued Zosyn 07/16. Continue wound care per wound care team. - Strict blood glucose control - ESRD: nephrology following - PAD: follow up with vascular surgery as outpatient - Follow up with wound care team as outpatient. Case discussed with Mariaa Farrar
[2023-07-17] MEDS: PANTOPRAZOLE 40MG TABLET PO SCH (11:16)
[2023-07-17] MEDS: ASPIRIN EC 81 MG TAB PO SCH (11:16)
[2023-07-17] MEDS: METOPROLOL XL 25 MG TAB PO SCH (11:16)
[2023-07-17] MEDS: SACUBITRIL/VALSARTAN 24/26 MG TAB PO SCH ×2 (11:16→20:24)
[2023-07-17] MEDS: AMIODARONE HCL 200 MG TAB PO SCH (11:16)
[2023-07-17] MEDS: APIXABAN 2.5 MG TABLET PO SCH ×2 (11:16→20:25)
[2023-07-17] MEDS: EPOETIN ALFA 10,000 UNIT/ML VIAL IV SCH (14:30)
--- NOTE | 2023-07-17 15:44 | P.PN ---
Subjective Date of Service: 07/17/23 Chief Complaint: Altered mental status more oriented today, No reported fever, cough, shortness of breath Physical Exam: Vitals: reviewed GEN: Alert, orientedx2, NAD HEENT: Normal conjunctiva, sclera anicteric CV: Regular rate & rhythm, no edema Pulm: Nonlabored respiraitons, clear bilaterally ABD: Soft, nontender, nondistended MSK: No joint tenderness Integumentary: Rash(es), Skin breakdown, Skin lesion Neuro: Normal speech, abnormal affect Review of Systems per HPI Physical Examination - Vital Signs Temperature: 96.6 F Blood Pressure: 131/61 Pulse: 56 Respirations: 16 Pulse Ox (%): 100 Assessment And Plan - Plan Problem List: Acute metabolic encephalopathy likely secondary to UTI Multiple leg ulcers ESRD on HD PAD/CAD NSTEMI DM2 Hypertension Hyperlipidemia Hypothyroidism GERD Plan: Acute metabolic encephalopathy likely secondary to UTI CT head is unremarkable. Previously on vanc / cefepime Continue IV zosyn urine cx: mixed fercho ID Consulted fall precautions ESRD on HD Nephrology consulted Acute HD per nephrology Multiple leg ulcers Patient recently received prolonged IV Zosyn for Pseudomonas infected ulcers Continue local wound care Wound care consult. ID consulted Recommendations - Discontinued Zosyn 07/16. Continue wound care per wound care team. - Strict blood glucose control - ESRD: nephrology following - PAD: follow up with vascular surgery as outpatient - Follow up with wound care team as outpatient. PAD/CAD NSTEMI Pt need to follow up with a vascular surgery in clinic. Patient is currently clinically unstable for any vascular intervention Initial troponin elevated /. monitor on tele likely demand ischemia secondary to ESRD. No chest pain. Continue to monitor DM2 accuchek, SSI Hypertension Hyperlipidemia Hypothyroidism GERD continue home meds as appropriate DVT prophylaxis: Heparin SQ. Discharge Plan: Long-Term - Code Status/Comfort Care Code Status: Full Code Critical Care: No Time Spent Managing PTS Care (In Minutes): 30
--- NOTE | 2023-07-17 15:54 | PN ---
Date of Progress Note: 07/17/2023 Subjective: Patient is seen on dialysis. Patient was admitted to the hospital with over volume. Alex peace is being challenged on the dialysis. Physical Examination: Vital Signs: When I saw the patient, blood pressure 130/69, pulse of 64 afebrile. Chest: Crackles bilateral base. Heart: S1, S2. Systolic murmur. Abdomen: Soft, nontender. Extremities: Dressing on the foot. Laboratory Data: Hemoglobin 9.3. Sodium 138, potassium 3.8, bicarb 24, BUN 20, creatinine 3.6, calc ium 8.6. Phosphorus 4, magnesium of 2. Current Medications: The patient is on include: 1.Aspirin. 2.Eliquis. 3.Epogen. 4.Metoprolol 25 daily. 5.Atorvastatin. 6.Amiodarone. 7.Zofran. 8.Levothyroxine. Assessment And Plan: 1.End-stage renal disease, over volume. We will continue current dialysis. We will dialyze the vicky colón on low temperature and low blood pressure flow to establish better volume control and we will fo llow up. 2.Hypertension, currently blood pressure on the lower side. Hold all blood pressure medication. 3.Secondary hyperparathyroid, stable. 4.Over volume. Patient is being challenged. CR Voice ID: [id number] Report ID: [id number]
[2023-07-17] MEDS: Oxycodone HCl/Acetaminophen 5/325 MG TAB PO PRN (20:25)
[2023-07-17] MEDS: ATORVASTATIN 40 MG TAB PO SCH (20:25)
[2023-07-17] MEDS ORDERED: POLYETHYL GLY 3350 17 GM/DOSE PO PRN (20:56)
[2023-07-18 02:29] VITALS: O2SAT 99
[2023-07-18 03:58] LABS: Albumin 2.5 g/dL (3.4-5.0); Magnesium 1.9 mg/dL (1.6-2.4); Phosphorus 3.2 mg/dL (2.5-4.9); Potassium 3.7 mEq/L (3.5-5.1)
[2023-07-18] MEDS: ONDANSETRON 4 MG/2 ML VIAL IV PRN ×2 (05:12→17:10)
[2023-07-18] MEDS: LEVOTHYROXINE SOD 0.1 MG TAB PO SCH (06:25)
[2023-07-18] MEDS: INSULIN REGULAR (HUMAN) 100 UNIT/ML SQ SCH ×4 (07:30→20:40)
--- NOTE | 2023-07-18 08:47 | P.PN ---
Date of Service: 07/18/23 Chief Complaint: Altered mental status Subjective: No new changes. Pending NH authorization. CM/SS following. No acute events overnight. In no apparent distress. + right leg pain Physical Examination Temp Pulse Resp BP Pulse Ox 97.4 F 75 18 152/69 H 100 07/18/23 04:00 07/18/23 04:00 07/18/23 04:00 07/18/23 04:00 07/18/23 04:00 General: In no apparent distress, Oriented x3. Respiratory: Normal air movement, Diminished. Unlabored respirations. on 2L nasal cannula. Cardiovascular: Regular rate/rhythm, Abnormal pulses. Gastrointestinal: Normal bowel sounds, Soft and benign. Integumentary: RLE wounds with dressing clean dry and intact. Scattered ecchymosis of bilateral upper and lower extremities. Laboratory Data - Reviewed Microbiology Data - Reviewed Imagings Data: - Reviewed Medications List: Reviewed Assessment and Plan Problem List Acute Metabolic Encephalopathy Severe peripheral arterial disease ESRD on hemodialysis Anemia of chronic disease Chronic lower extremity wounds Hypertension Hyperlipidemia Hypothyroidism GERD Diabetes Mellitus type II Thrombocytopenia - Previously on Zosyn (07/14-07/16) - Afebrile - Urine culture: mixed fercho - XR Chest 07/13: "Mild bilateral interstitial lung opacities may indicate mild interstitial pulmonary edema" - CTA Head 07/13: "No significant abnormality is displayed ." - Neck CTA 07/13: "Marked plaque mid to distal left common carotid artery results in an approximately 80% stenosis. Moderate plaque right common carotid artery. Suboptimal evaluation of the right carotid bulb. Plaque resulting in moderate stenosis suspected. Marked calcified plaque distal right and left vertebral arteries resulting in severe stenoses" Recommendations - Off antibiotics since 07/17. Continue wound care per wound care team. - Strict blood glucose control - ESRD: nephrology following - PAD: follow up with vascular surgery as outpatient - Follow up with wound care team as outpatient. Pending NH placement. CM/SS following. Case discussed with Mariaa Farrar
[2023-07-18] MEDS: APIXABAN 2.5 MG TABLET PO SCH ×2 (10:03→20:40)
[2023-07-18] MEDS: SACUBITRIL/VALSARTAN 24/26 MG TAB PO SCH ×2 (10:03→20:40)
[2023-07-18] MEDS: PANTOPRAZOLE 40MG TABLET PO SCH (10:03)
[2023-07-18] MEDS: ASPIRIN EC 81 MG TAB PO SCH (10:03)
[2023-07-18] MEDS: AMIODARONE HCL 200 MG TAB PO SCH (10:04)
[2023-07-18] MEDS: METOPROLOL XL 25 MG TAB PO SCH (10:04)
[2023-07-18] MEDS: DOCUSATE NA 100 MG CAP PO SCH ×2 (10:04→20:39)
[2023-07-18] MEDS: Oxycodone HCl/Acetaminophen 5/325 MG TAB PO PRN ×2 (10:48→20:39)
--- NOTE | 2023-07-18 12:34 | PN ---
Date of Progress Note: 07/18/2023 Subjective: Patient was admitted to the hospital with over volume. Patient is status post dialysis yesterday, tolerated the dialysis very well. Patient is doing well, still on nasal cannula. Physical Examination: Vital Signs: When I saw the patient, blood pressure 145/55, pulse of 74. Chest: Crackles bilateral base. Heart: S1, S2. Systolic murmur. Abdomen: Soft, nontender. Extremities: No edema. Dressing in both legs. Neuro: Alert. No focality. Laboratory Data: Hemoglobin 9.3. Sodium 138, potassium 3.7, bicarb 27, BUN 20, creatinine 3.4, calc ium 8.6. Phosphorus 3.2, magnesium 1.9. Current Medications: The patient is on include: 1.Aspirin. 2.Epogen. 3.Metoprolol. 4.Entresto. 5.Zofran. 6.Pantoprazole. 7.Levothyroxine. Assessment And Plan: 1.End-stage renal disease with over volume, currently back to normal volume. We will continue dialy sis Sunday, , and Sunday per schedule. 2.Secondary hyperparathyroidism, stable. 3.Anemia of chronic kidney disease. Continue XENIA. 4.Congestive heart failure with exacerbation, back to normal volume currently. Continue dialysis Sunday, , and Sunday and we will follow up. CR Voice ID: [id number] Report ID: [id number]
--- NOTE | 2023-07-18 17:44 | P.PN ---
Subjective Date of Service: 07/18/23 Chief Complaint: Altered mental status more oriented today, No reported fever, cough, shortness of breath Physical Exam: Vitals: reviewed GEN: Alert, orientedx2, NAD HEENT: Normal conjunctiva, sclera anicteric CV: Regular rate & rhythm, no edema Pulm: Nonlabored respiraitons, clear bilaterally ABD: Soft, nontender, nondistended MSK: No joint tenderness Integumentary: Rash(es), Skin breakdown, Skin lesion Neuro: Normal speech, abnormal affect Physical Examination - Vital Signs Temperature: 96.8 F Blood Pressure: 139/60 Pulse: 65 Respirations: 16 Pulse Ox (%): 100 Assessment And Plan - Plan Problem List: Acute metabolic encephalopathy likely secondary to UTI Multiple leg ulcers ESRD on HD PAD/CAD NSTEMI DM2 Hypertension Hyperlipidemia Hypothyroidism GERD Plan: Acute metabolic encephalopathy likely secondary to UTI CT head is unremarkable. Previously on vanc / cefepime Continue IV zosyn urine cx: mixed fercho ID Consulted fall precautions ESRD on HD Nephrology consulted Acute HD per nephrology Multiple leg ulcers Patient recently received prolonged IV Zosyn for Pseudomonas infected ulcers Continue local wound care Wound care consult. ID consulted Recommendations - Discontinued Zosyn 07/16. Continue wound care per wound care team. - Strict blood glucose control - ESRD: nephrology following - PAD: follow up with vascular surgery as outpatient - Follow up with wound care team as outpatient. PAD/CAD NSTEMI Pt need to follow up with a vascular surgery in clinic. Patient is currently clinically unstable for any vascular intervention Initial troponin elevated 07/13. monitor on tele likely demand ischemia secondary to ESRD. No chest pain. Continue to monitor DM2 accuchek, SSI Hypertension Hyperlipidemia Hypothyroidism GERD continue home meds as appropriate DVT prophylaxis: Heparin SQ. Discharge Plan: Residential - Code Status/Comfort Care Code Status: Full Code Critical Care: No Time Spent Managing PTS Care (In Minutes): 35
[2023-07-18] MEDS: ATORVASTATIN 40 MG TAB PO SCH (20:40)
[2023-07-19] MEDS: Oxycodone HCl/Acetaminophen 5/325 MG TAB PO PRN (02:16)
[2023-07-19 06:21] LABS: Absolute Lymphocytes (CBC) 0.4 K/uL (0.7-4.9); Hematocrit 28.8 % (36.0-45.0); Lymphocytes % 5.9 % (15.3-44.8); MCV 95.8 fL (80-100); MPV 8.3 fL (7.6-11.3); Platelets 85 thou/uL (152-406)
[2023-07-19] MEDS: LEVOTHYROXINE SOD 0.1 MG TAB PO SCH (06:33)
[2023-07-19] MEDS: ONDANSETRON 4 MG/2 ML VIAL IV PRN (06:38)
[2023-07-19 06:40] LABS: Albumin 2.6 g/dL (3.4-5.0); Magnesium 1.9 mg/dL (1.6-2.4); Phosphorus 3.7 mg/dL (2.5-4.9); Potassium 3.9 mEq/L (3.5-5.1)
[2023-07-19] MEDS: INSULIN REGULAR (HUMAN) 100 UNIT/ML SQ SCH ×2 (07:30→11:30)
--- NOTE | 2023-07-19 08:57 | P.PN ---
Date of Service: 07/19/23 Chief Complaint: Altered mental status Subjective: No new changes. No acute events overnight. Denies any new or worsening complaints at this time. In no apparent distress. MS authorization pending; CM/SS following. Physical Examination Temp Pulse Resp BP Pulse Ox 96.8 F 67 18 165/78 H 100 07/19/23 08:00 07/19/23 08:00 07/19/23 08:00 07/19/23 08:00 07/19/23 08:00 General: In no apparent distress, Oriented x3. Respiratory: Normal air movement, Diminished. Unlabored respirations. on 2L nasal cannula. Cardiovascular: Regular rate/rhythm, Abnormal pulses. Gastrointestinal: Normal bowel sounds, Soft and benign. Integumentary: RLE wounds with dressing clean dry and intact. Scattered ecchymosis of bilateral upper and lower extremities. Right heel chronic ulcer. Laboratory Data - Reviewed Microbiology Data - Reviewed Imagings Data: - Reviewed Medications List: Acetaminophen (Acetaminophen 325 Mg Tablet) 650 mg PO Q4HP PRN PRN Reason: TEMP > 100' F Last Admin: 07/15/23 18:54 Dose: 650 mg Amiodarone HCl (Amiodarone Hcl 200 Mg Tab) 200 mg PO DAILY [facility] Last Admin: 07/18/23 10:04 Dose: 200 mg Apixaban (Apixaban 2.5 Mg Tablet) 2.5 mg PO BID [facility] Last Admin: 07/18/23 20:40 Dose: 2.5 mg Aspirin (Aspirin Ec 81 Mg Tab) 81 mg PO DAILY [facility] Last Admin: 07/18/23 10:03 Dose: 81 mg Atorvastatin Calcium (Atorvastatin 40 Mg Tab) 40 mg PO BEDTIME [facility] Last Admin: 07/18/23 20:40 Dose: 40 mg Docusate Sodium (Docusate Na 100 Mg Cap) 100 mg PO BID [facility] Last Admin: 07/18/23 20:39 Dose: 100 mg Epoetin Derrick (Epoetin Derrick 10,000 Unit/Ml Vial) 10,000 unit IV EVERY HD [facility] Last Admin: 07/17/23 14:30 Dose: 10,000 unit Heparin Sodium (Porcine) (Heparin 1,000 Unit/Ml Vial) 6,000 unit IV EVERY HD PRN PRN Reason: FOR DIALYSIS CATHETER CARE Last Admin: 07/17/23 15:32 Dose: 6,000 unit Heparin Sodium (Porcine) (Heparin 1,000 Unit/Ml Vial) 5,000 unit IV EVERY HD PRN PRN Reason: Prevent HD System Clotting. Last Admin: 07/17/23 12:30 Dose: 5,000 unit Insulin Human Regular (Insulin Regular (Human) 100 Unit/Ml) 0 unit SQ ACHS [facility]; Protocol Last Admin: 07/18/23 20:40 Dose: Not Given Levothyroxine Sodium (Levothyroxine Sod 0.1 Mg Tab) 0.1 mg PO DAILYAC [facility] Last Admin: 07/19/23 06:33 Dose: 0.1 mg Metoprolol Succinate (Metoprolol Xl 25 Mg Tab) 25 mg PO DAILY [facility] Last Admin: 07/18/23 10:04 Dose: 25 mg Ondansetron HCl (Ondansetron 4 Mg/2 Ml Vial) 4 mg IV Q6HP PRN PRN Reason: NAUSEA / VOMITING Last Admin: 07/19/23 06:38 Dose: 4 mg Oxycodone/Acetaminophen (Oxycodone Hcl/Acetaminophen 5/325 Mg Tab) 1 tab PO Q4H PRN PRN Reason: Pain scale 5-7 (Moderate) Last Admin: 07/19/23 02:16 Dose: 1 tab Pantoprazole Sodium (Pantoprazole 40mg Tablet) 40 mg PO DAILY [facility]; Protocol Last Admin: 07/18/23 10:03 Dose: 40 mg Assessment and Plan Problem List Acute Metabolic Encephalopathy Severe peripheral arterial disease ESRD on hemodialysis Anemia of chronic disease Chronic lower extremity wounds Hypertension Hyperlipidemia Hypothyroidism GERD Diabetes Mellitus type II Thrombocytopenia - Previously on Zosyn (07/14-07/16) - Afebrile - Urine culture: mixed fercho - XR Chest 07/13: "Mild bilateral interstitial lung opacities may indicate mild interstitial pulmonary edema" - CTA Head 07/13: "No significant abnormality is displayed ." - Neck CTA 07/13: "Marked plaque mid to distal left common carotid artery results in an approximately 80% stenosis. Moderate plaque right common carotid artery. Suboptimal evaluation of the right carotid bulb. Plaque resulting in moderate stenosis suspected. Marked calcified plaque distal right and left vertebral arteries resulting in severe stenoses" Recommendations Continue current plan of care. Pending NH placement/authorization; CM/SS following. - Off antibiotics since 07/17. Continue wound care per wound care team. - Strict blood glucose control - ESRD: nephrology following - PAD: follow up with vascular surgery as outpatient - Follow up with wound care team as outpatient. Case discussed with Mariaa Farrar
[2023-07-19] MEDS: ASPIRIN EC 81 MG TAB PO SCH (09:00)
[2023-07-19] MEDS: APIXABAN 2.5 MG TABLET PO SCH (09:00)
[2023-07-19] MEDS: SACUBITRIL/VALSARTAN 24/26 MG TAB PO SCH (09:00)
[2023-07-19] MEDS: METOPROLOL XL 25 MG TAB PO SCH (09:00)
[2023-07-19] MEDS: AMIODARONE HCL 200 MG TAB PO SCH (09:00)
[2023-07-19] MEDS: PANTOPRAZOLE 40MG TABLET PO SCH (09:00)
[2023-07-19] MEDS: DOCUSATE NA 100 MG CAP PO SCH (09:00)
[2023-07-19 09:41] LABS: Anisocytosis 2+; Blood Morphology Comment NOTED (NOT SEEN); Platelet Estimate DECR; White Blood Cell Scan OK (OK)
--- NOTE | 2023-07-19 11:06 | P.DS ---
Admission Date: 07/13/23 Discharge Date: 07/19/23 Disposition: TRANSFER TO LONGTERM Discharge Condition: GOOD Reason for Admission: Altered mental status Brief History of Present Illness: 68-year-old female with history of end-stage renal disease on hemodialysis, multiple hospitalizations for altered mental status, chronic wounds on bilateral lower extremities was brought to the emergency department due to another episode of altered mental status. Reported to be agitated and hallucinating. Blood work revealed anemia and hypokalemia, UA shows evidence of UTI. Head CT negative, CTA head and neck shows severe stenosis and the vertebral arteries and left carotid artery. Patient experiencing delirium suspected to be related to UTI. She is hospitalized for further management. - Physical Exam General: In no apparent distress, Confused HEENT: Atraumatic, Normocephalic, Other (Dry mucous membrane), Sclerae nonicteric Neck: Supple, JVD not distended Respiratory: Clear to auscultation bilaterally, Normal air movement Cardiovascular: No edema, Regular rate/rhythm, Normal S1 S2 Gastrointestinal: Normal bowel sounds, Soft and benign, Non-distended, No tenderness Musculoskeletal: No tenderness Integumentary: Other (Ulcers-right inner thigh, left popliteal area and left heel-all looks clean.) Neurological: Other (Confused, moves all extremities.) Lymphatics: No axilla or inguinal lymphadenopathy Hospital Course: Ms. Meseret Pollard presented with altered mental status. Was noted to have metabolic encephalopathy secondary to acute cystitis. CT of the head was notable to have moderate stenosis, coronary artery stenosis She was treated with IV antibiotics. Her condition improved with treatment of IV antibiotics for 3 days. Stable for discharge with follow-up appointment PCP, nephrology, wound care outpatient. She can continue her previous home medications. Plan to discharge to [facility]. GOAL: Clear understanding of disease process PROBLEM: End Stage renal disease on hemodialysis: Continue hemodialysis outpatient ESRD: nephrology following severe Peripheral arterial disease/carotid artery disease: Multiple leg ulcers: Left leg wound Continue wound care. Monitor for worsening signs and symptoms of infection follow up with a vascular surgery in clinic. Patient is currently clinically unstable for any vascular intervention -DC IV and DC to assisted -Follow-up with PCP in 1 to 2 weeks -Follow-up with Neurology in 1 to 2 weeks -Follow-up with Nephrology for HD -Please call Dr. Dhillon at [phone] if any questions regarding hospital stay -Please call nursing station at [phone] if any nursing or medication questions -Return to the emergency room if symptoms worsen Vital Signs/Physical Exam: Temp Pulse Resp BP Pulse Ox 96.8 F 67 18 165/78 H 100 07/19/23 08:00 07/19/23 08:00 07/19/23 08:00 07/19/23 08:00 07/19/23 08:00 Laboratory Data at Discharge: WBC 7.00 thou/uL (4.3-10.9) 07/19/23 05:35 Hgb 9.3 g/dL (12.0-15.0) L 07/19/23 05:35 Hct 28.8 % (36.0-45.0) L 07/19/23 05:35 Plt Count 85 thou/uL (152-406) L 07/19/23 05:35 Sodium 137 mEq/L (136-145) 07/19/23 05:35 Potassium 3.9 mEq/L (3.5-5.1) 07/19/23 05:35 BUN 35 mg/dL (7-18) H 07/19/23 05:35 Creatinine 4.66 mg/dL (0.55-1.02) H 07/19/23 05:35 Glucose 132 mg/dL (74-106) H 07/19/23 05:35 Phosphorus 3.7 mg/dL (2.5-4.9) 07/19/23 05:35 Magnesium 1.9 mg/dL (1.6-2.4) 07/19/23 05:35 Total Bilirubin 0.9 mg/dL (0.2-1.0) 07/14/23 07:22 AST 59 U/L (15-37) H 07/14/23 07:22 ALT 30 U/L (13-56) 07/14/23 07:22 Alkaline Phosphatase 129 U/L (45-117) H 07/14/23 07:22 Home Medications: Amiodarone HCl [Cordarone*] 200 mg PO DAILY 06/22/23 Apixaban [Eliquis *] 2.5 mg PO BID 06/22/23 Aspirin [Aspirin EC 81 MG] 81 mg PO DAILY 06/22/23 Atorvastatin Calcium [Lipitor] 40 mg PO BEDTIME 06/22/23 Bupropion HCl [Wellbutrin Sr] 150 mg PO DAILY 06/22/23 Cephalexin 500 mg PO DAILY 06/22/23 Cetirizine HCl 10 mg PO DAILY 06/22/23 Insulin Glargine,Hum.rec.anlog [Insulin Glargine] 5 units SQ BEDTIME 06/22/23 Levothyroxine [Synthroid*] 100 mcg PO DAILY 06/22/23 Loratadine 10 mg PO DAILY 06/22/23 Metoprolol Succinate 25 mg PO DAILY 06/22/23 Pantoprazole [Protonix Tab*] 40 mg PO DAILY 06/22/23 Polyethylene Glycol 8000 [Polyethylene Glycol] 17 g PO DAILY 06/22/23 Sacubitril/Valsartan [Entresto 24 mg-26 mg Tablet] 0.5 tab PO BID 06/22/23 Physician Discharge Instructions: -DC IV and DC to assisted -Follow-up with PCP in 1 to 2 weeks -Follow-up with Neurology in 1 to 2 weeks -Follow-up with Nephrology for HD -Please call Dr. Dhillon at [phone] if any questions regarding hospital stay -Please call nursing station at [phone] if any nursing or medication questions -Return to the emergency room if symptoms worsen Diet: AHA Activity: Fall precautions Followup: NONE,NONE [Primary Care Provider] - Time spent managing pt's care (in minutes): 55
[2023-07-19] MEDS: EPOETIN ALFA 10,000 UNIT/ML VIAL IV SCH (12:30)
[2023-07-19 16:34] VITALS: BP 161/68; TEMP 96.9
--- NOTE | 2023-07-19 20:46 | PN ---
Date of Progress Note: 07/19/2023 Subjective: Patient was admitted to the hospital with over volume. Patient is being dialyzed on a d aily basis, currently back to dialyze 3 times a week, tolerated well very well. Physical Examination: Vital Signs: When I saw the patient, blood pressure 161/68, pulse of 80, afebrile. Chest: Clear to auscultation. Heart: S1, S2. Regular. Abdomen: Soft, nontender. Extremities: No edema. Dressing on both feet. Neuro: Alert. No focality. Laboratory Data: Hemoglobin 9.3. Sodium 137, potassium 3.9, bicarb 24, BUN 35, creatinine 4.6, calc ium 8.7. Phosphorus 3.7. Current Medications: The patient is on include: 1.Epogen. 2.Renvela. 3.Tylenol. 4.Cetirizine. 5.Insulin. 6.Levothyroxine. 7.Entresto. 8.Eliquis. 9.Amiodarone. Assessment And Plan: 1.End-stage renal disease with over volume, status post daily dialysis. Currently, back to normal v olume. Continue dialysis 3 times a week. Patient is cleared from the Renal standpoint after dialysi s today to be discharged to follow up tomorrow with her regular schedule Sunday, Sunday, Sunday. 2.Hypertension, being utilized for more ultrafiltration, tolerated very well. Continue Entresto. 3.Anemia of chronic kidney disease. Continue XENIA. 4.Congestive heart failure with exacerbation. As above, we will optimize the fluid status for the p atient. CR Voice ID: [id number] Report ID: [id number]
== END 2023-07-19 16:15 | DRG 689 ==
LOC: ER 15:51 → ERHOLD 19:41 → 2ND 21:28
PROVIDERS: ADMIT Internal Medicine; ATTEND Hospitalist
PROC: 5A1D70Z Performance of Urinary Filtration, Intermittent, Less than 6 Hours Per Day (ICD-10-PCS; principal; 2023-07-13)
DX: N30.00 Acute cystitis without hematuria (principal); G93.41 Metabolic encephalopathy; N18.6 End stage renal disease; I21.4 Non-ST elevation (NSTEMI) myocardial infarction; L97.129 Non-pressure chronic ulcer of left thigh with unspecified severity; N25.81 Secondary hyperparathyroidism of renal origin; I13.2 Hypertensive heart and chronic kidney disease with heart failure and with stage 5 chronic kidney disease, or end stage renal disease; I50.9 Heart failure, unspecified; E11.22 Type 2 diabetes mellitus with diabetic chronic kidney disease; E11.40 Type 2 diabetes mellitus with diabetic neuropathy, unspecified; E11.51 Type 2 diabetes mellitus with diabetic peripheral angiopathy without gangrene; E11.65 Type 2 diabetes mellitus with hyperglycemia; D63.1 Anemia in chronic kidney disease; E03.9 Hypothyroidism, unspecified; E87.6 Hypokalemia; E78.00 Pure hypercholesterolemia, unspecified; K21.9 Gastro-esophageal reflux disease without esophagitis; D69.6 Thrombocytopenia, unspecified; E87.70 Fluid overload, unspecified; I25.10 Atherosclerotic heart disease of native coronary artery without angina pectoris; I25.2 Old myocardial infarction; Z99.2 Dependence on renal dialysis; Z88.5 Allergy status to narcotic agent; Z88.8 Allergy status to other drugs, medicaments and biological substances; Z95.5 Presence of coronary angioplasty implant and graft; Z95.1 Presence of aortocoronary bypass graft; Z79.4 Long term (current) use of insulin; Z90.49 Acquired absence of other specified parts of digestive tract; Z79.01 Long term (current) use of anticoagulants; Z91.048 Other nonmedicinal substance allergy status; Z79.890 Hormone replacement therapy; Z79.899 Other long term (current) drug therapy; Z96.653 Presence of artificial knee joint, bilateral
CPT/HCPCS: 36415; 51702; 70450; 70496; 70498; 71045; 80053; 80069; 81001; 82140; 82805; 82947; 83605; 83735; 84100; 84439; 84443; 84484; 85025; 87086; 87088; 90935; 93005; 94760; 97110; 97161; 97530; 99285; J0692; J0696; J1200; J1630; J1644; J2405; J2543; J7030; J7042; J7050; Q9967

== ENCOUNTER 2023-08-08 16:07 | Inpatient (IN) | payer OTHER ==
[2023-08-08 16:54] LABS: Specific Gravity 1.018 (1.005-1.030); Urine Bacteria <20 /HPF (<20); Urine Bilirubin NEGATIVE (Negative); Urine Blood 3+ (OVER) (Negative); Urine Clarity Extremely Turbid (Clear); Urine Color Light-Orange (Yellow); Urine Glucose NEGATIVE (Negative); Urine Mucus Slight /HPF (None Seen); Urine Protein 3+ (Negative); Urine RBC >50 /HPF (None Seen); Urine Urobilinogen Normal (Normal); Urine WBC Clump Moderate /HPF (None Seen)
[2023-08-08 17:01] LABS: SARS-CoV-2 Antigen Rapid Res Negative (Negative)
[2023-08-08 17:03] LABS: Absolute Lymphocytes (CBC) 0.5 K/uL (0.7-4.9); Hematocrit 24.1 % (36.0-45.0); Lymphocytes % 10.2 % (15.3-44.8); MCV 94.3 fL (80-100); MPV 7.9 fL (7.6-11.3); Platelets 95 thou/uL (152-406); RBC Red Blood Cell Count 2.56 M/uL (3.86-4.86)
--- NOTE | 2023-08-08 17:04 | RAD REPORT ---
EXAM DESCRIPTION: CT - Head Brain Wo Cont - 08/08/2023 4:54 pm CLINICAL HISTORY: Alteration of awareness/confusion COMPARISON: July 13, 2023 TECHNIQUE: Computed axial tomography of the head was obtained. IV contrast was not requested. All CT scans are performed using dose optimization technique as appropriate and may include automated exposure control or mA/KV adjustment according to patient size. FINDINGS: An intracranial bleed is not seen The ventricles are normal in caliber No extra-axial fluid collection is noted. No significant hypodensity within debris Fluid within the sinuses/ mastoids is not seen. IMPRESSION: No acute intracranial abnormality is seen If patient's symptoms persist MRI of the brain would be recommended
[2023-08-08 17:29] LABS: BUN Blood Urea Nitrogen 11 mg/dL (7-18); Bicarbonate 29 mEq/L (21-32); Glomerular Filtration Rate 36 ml/min (=/>90); Glucose Level 72 mg/dL (74-106); Potassium 2.8 mEq/L (3.5-5.1); Sodium Level 140 mEq/L (136-145)
[2023-08-08 17:31] LABS: Anisocytosis 1+; Blood Morphology Comment NOTED (NOT SEEN); Platelet Estimate DECR; White Blood Cell Scan OK (OK)
--- NOTE | 2023-08-08 17:31 | RAD REPORT ---
EXAM DESCRIPTION: Mitul Single View08/08/2023 5:08 pm CLINICAL HISTORY: sob COMPARISON: July 13, 2023 FINDINGS: Mild bilateral interstitial pulmonary opacities Heart moderately enlarged. Postsurgical changes involve the chest Central venous line in place IMPRESSION: These findings may indicate mild CHF
--- NOTE | 2023-08-08 17:36 | EDPHYS ---
Physician Documentation [facility] Name: Meseret Gallego Age: 68 yrs Sex: Female : 1955 Arrival Date: 08/08/2023 Time: 16:07 Bed 6 Private MD: ED Physician Marcel Sykes HPI: 08/08 17:06 This 68 yrs old Female presents to ER via EMS with complaints of Altered Mental Status. rn 17:06 The patient presents with decreased responsiveness. Onset: The symptoms/episode rn began/occurred at an unknown time. Possible causes: unknown. Current symptoms: In the emergency department the patient's symptoms have improved. The patient has experienced similar episodes in the past. EMS reports called out to the dialysis center, patient was noted to be slightly altered upon arrival per staff and got worse after dialysis completed. Patient without acute complaints. Patient states feels tired and sleepy but nothing more than that. No fever. No chills. No chest pain. No shortness of breath. No abdominal pain. No vomiting or diarrhea. No blood in stool. No medication changes. Denies drug use. Patient states does not feel any more tired than she normally does. Historical: - Allergies: 16:08 Codeine; ld1 16:08 Phenergan; ld1 16:08 Tape; ld1 - Home Meds: 16:08 clopidogrel 75 mg Oral tablet daily [Active]; atorvastatin 40 mg Oral tab 1 tab every ld1 day at bedtime [Active]; furosemide 80 mg Oral tab 1 tab once daily [Active]; lisinopril 5 mg Oral tab 1 tab once daily [Active]; amlodipine 10 mg tab 1 tab once daily [Active]; aspirin 81 mg Oral capsule daily [Active]; bupropion HCl 75 mg Oral tablet 2 times per day [Active]; Protonix 40 mg Oral TbEC 1 tab once daily [Active]; metoprolol tartrate 12.5 mg Oral tab 2 times per day [Active]; - PMHx: 16:08 Diabetes - IDDM; Dialysis; Hypercholesterolemia; Hypertension; Hypothyroidism; ld1 Myocardial infarction; - PSHx: 16:08 2 heart stents; back; section; Coronary artery bypass graft; knee; neck; ld1 - Immunization history:: Adult Immunizations up to date. - Social history:: Smoking status: Patient denies any tobacco usage or history of. Patient/guardian denies using alcohol. - Family history:: not pertinent. - Hospitalizations: : No recent hospitalization is reported. ROS: 17:06 Constitutional: Negative for fever, chills, and weight loss, Cardiovascular: Negative rn for chest pain, palpitations, and edema, Respiratory: Negative for shortness of breath, cough, wheezing, and pleuritic chest pain, Abdomen/GI: Negative for abdominal pain, nausea, vomiting, diarrhea, and constipation, Back: Negative for injury and pain, MS/Extremity: Negative for injury and deformity, Skin: Negative for injury, rash, and discoloration, Neuro: Negative for headache, weakness, numbness, tingling, and seizure, Exam: 17:06 Constitutional: This is a well developed, well nourished patient who is awake, rn somnolent but awakens to voice, and in no acute distress. Head/Face: Normocephalic, atraumatic. Eyes: Pupils equal round and reactive to light, extra-ocular motions intact. ENT: Dry mucous membranes, no stridor Cardiovascular: Regular rate and rhythm. No pulse deficits. Respiratory: No increased work of breathing, no retractions or nasal flaring. Abdomen/GI: Soft, non-tender MS/ Extremity: Pulses equal, no cyanosis. Neuro: Somnolent, awakens to voice easily and carries a complete conversation, GCS 15, oriented to person, place, time, and situation. Cranial nerves II-XII grossly intact. Motor strength 4/5 in all extremities. Sensory grossly intact. Vital Signs: 16:08 BP 153 / 62; Pulse 72; Resp 18; Temp 98.2(O); Pulse Ox 96% on R/A; Weight 79.38 kg; ld1 Height 5 ft. 4 in. ; Pain 0/10; 19:02 BP 164 / 70; Pulse 68; Resp 18; Pulse Ox 95% on R/A; ld1 19:28 BP 158 / 63; Pulse 75; Resp 17 S; Pulse Ox 98% on R/A; ha1 20:30 BP 159 / 64; Pulse 70; Resp 17; Pulse Ox 96% ; rv 22:00 BP 144 / 62; Pulse 69; Resp 16; Temp 98; Pulse Ox 96% on R/A; rv 16:08 Body Mass Index 30.04 (79.38 kg, 162.56 cm) ld1 16:08 Pain Scale: Adult ld1 Stephany Coma Score: 22:17 Eye Response: spontaneous(4). Motor Response: obeys commands(6). Verbal Response: rv oriented(5). Total: 15. MDM: 16:08 Patient medically screened. rn 17:33 Differential Diagnosis: CVA, electrolyte abnormality, pneumonia, UTI, volume depletion. rn Differential Diagnosis: hypoglycemia. Data reviewed: vital signs, nurses notes. Data reviewed: lab test result(s), radiologic studies, CT scan, plain films, and as a result, I will admit patient. Consideration of Admission/Observation Patient was admitted/placed on observation. Escalation of care including admission/observation considered. Counseling: I had a detailed discussion with the patient and/or guardian regarding the historical points, exam findings, and any diagnostic results supporting the discharge/admit diagnosis, lab results, radiology results, the need for further work-up and treatment in the hospital. ED course: Reevaluated patient, mental status seems to be waxing and waning, now more decreased level of consciousness in line with what was reported from dialysis. Will admit to hospitalist service for further care.. 08/08 16:28 Order name: CBC with Diff; Complete Time: 17:40 08/08 16:28 Order name: Basic Metabolic Panel; Complete Time: 17:40 08/08 16:28 Order name: Urinalysis w/ reflexes; Complete Time: 17:16 08/08 16:28 Order name: SARS RAPID; Complete Time: 17:16 08/08 16:28 Order name: Flu; Complete Time: 17:16 08/08 16:28 Order name: BNP; Complete Time: 17:40 08/08 16:58 Order name: Urine Culture EDVT 08/08 17:06 Order name: CBC Smear Scan; Complete Time: 17:40 [facility] 08/08 17:32 Order name: Blood Culture Adult (2) rn 08/08 17:32 Order name: Lactate w/ 2H reflex if indic. rn 08/08 19:09 Order name: Glucose, Ancillary Testing EDVT 08/08 19:44 Order name: Basic Metabolic Panel [facility] 08/08 19:44 Order name: Basic Metabolic Panel [facility] 08/08 19:44 Order name: CBC with Automated Diff EDVT 08/08 19:44 Order name: CBC with Automated Diff [facility] 08/08 22:05 Order name: Glucose, Ancillary Testing EDMS 08/08 16:28 Order name: CT Head Brain wo Cont; Complete Time: 17:16 rn 08/08 16:28 Order name: XRAY Chest (1 view); Complete Time: 17:40 rn 08/08 16:28 Order name: EKG; Complete Time: 16:29 rn 08/08 16:28 Order name: IV Start; Complete Time: 16:51 rn 08/08 16:28 Order name: Cardiac monitoring; Complete Time: 16:29 rn 08/08 16:28 Order name: O2 Sat Monitoring; Complete Time: 16:29 rn 08/08 16:28 Order name: EKG - Nurse/Tech; Complete Time: 16:30 rn Administered Medications: 17:47 Drug: Rocephin IV 1 grams IV at calculated rate once; Given slow IV push per pharmacy ld1 instructions Route: IV; Rate: calculated rate; Site: left antecubital; 22:18 Follow up: Response: No adverse reaction; IV Status: Completed infusion rv 17:52 Drug: D5W IVPB 250 ml IVPB once; Verbal order per Dr. Sykes Route: IVPB; Site: left ld1 antecubital; 22:18 Follow up: IV Status: Completed infusion; IV Intake: 250ml rv Disposition Summary: 08/08/23 17:35 Hospitalization Ordered Notes: Hospitalization Status: Inpatient Admission rn Provider: Jeffrey Ochoa rn Location: Telemetry/MedSurg (Inpatient) rn Condition: Stable rn Problem: new rn Symptoms: have worsened rn Bed/Room Type: Standard rn Room Assignment: 418(08/08/23 21:05) ap3 Diagnosis - Altered mental status, unspecified rn - UTI/ Urinary tract infection, site not specified rn - End stage renal disease rn Forms: - Medication Reconciliation Form rn - SBAR form rn - Leadership Thank You Letter rn Signatures: Dispatcher [employer] Marcel Levine MD MD rn Prokisch, Amanda, RN RN ap3 Marcia Crespo RN RN ld1 Braeden Grissom RN rv Corrections: (The following items were deleted from the chart) 17:07 17:06 EMS reports called out to the dialysis center, patient was noted to be slightly rn altered upon arrival per staff and got worse after dialysis completed. Patient without acute complaints. Patient states feels tired and sleepy but nothing more than that. No fever. No chills. No chest pain. No shortness of breath. No abdominal pain. No vomiting or diarrhea. No blood in stool. No medication changes. Denies drug use.. rn 21:05 17:35 rn ap3
--- NOTE | 2023-08-08 17:36 | ER ---
Nurse's Notes [facility] Name: Meseret Gallego Age: 68 yrs Sex: Female : 1955 Arrival Date: 08/08/2023 Time: 16:07 Bed 6 Private MD: Diagnosis: Altered mental status, unspecified;UTI/ Urinary tract infection, site not specified;End stage renal disease Presentation: 08/08 16:08 Chief complaint: EMS states: toned out to [place] [facility] for altered mental status. ld1 Pt finished dialysis and was confused. Pt currently staying at [facility]. Denies pain. Coronavirus screen: At this time, the client does not indicate any symptoms associated with coronavirus-19. Ebola Screen: No symptoms or risks identified at this time. Initial Sepsis Screen: Does the patient meet any 2 criteria? No. Patient's initial sepsis screen is negative. Does the patient have a suspected source of infection? No. Patient's initial sepsis screen is negative. Risk Assessment: Do you want to hurt yourself or someone else? Patient reports no desire to harm self or others. Onset of symptoms was August 08, 2023 at 16:12. 16:08 Method Of Arrival: EMS: [facility] ld1 16:08 Acuity: CHRISTOPHER 2 ld1 Triage Assessment: 16:08 General: Appears in no apparent distress. comfortable, Behavior is calm, cooperative. ld1 Pain: Denies pain. EENT: No signs and/or symptoms were reported regarding the EENT system. Neuro: Level of Consciousness is awake, alert, obeys commands, Oriented to person, place, time. Cardiovascular: Capillary refill < 3 seconds Patient's skin is warm and dry. Respiratory: Airway is patent Respiratory effort is even, unlabored. GI: Abdomen is round non-distended. : No signs and/or symptoms were reported regarding the genitourinary system. Derm: No signs and/or symptoms reported regarding the dermatologic system. Musculoskeletal: No signs and/or symptoms reported regarding the musculoskeletal system. Historical: - Allergies: 16:08 Codeine; ld1 16:08 Phenergan; ld1 16:08 Tape; ld1 - Home Meds: 16:08 clopidogrel 75 mg Oral tablet daily [Active]; atorvastatin 40 mg Oral tab 1 tab every ld1 day at bedtime [Active]; furosemide 80 mg Oral tab 1 tab once daily [Active]; lisinopril 5 mg Oral tab 1 tab once daily [Active]; amlodipine 10 mg tab 1 tab once daily [Active]; aspirin 81 mg Oral capsule daily [Active]; bupropion HCl 75 mg Oral tablet 2 times per day [Active]; Protonix 40 mg Oral TbEC 1 tab once daily [Active]; metoprolol tartrate 12.5 mg Oral tab 2 times per day [Active]; - PMHx: 16:08 Diabetes - IDDM; Dialysis; Hypercholesterolemia; Hypertension; Hypothyroidism; ld1 Myocardial infarction; - PSHx: 16:08 2 heart stents; back; section; Coronary artery bypass graft; knee; neck; ld1 - Immunization history:: Adult Immunizations up to date. - Social history:: Smoking status: Patient denies any tobacco usage or history of. Patient/guardian denies using alcohol. - Family history:: not pertinent. - Hospitalizations: : No recent hospitalization is reported. Screenin:13 [facility] ED Fall Risk Assessment (Adult) History of falling in the last 3 months, ld1 including since admission No falls in past 3 months (0 pts). Abuse screen: Denies threats or abuse. Denies injuries from another. Nutritional screening: No deficits noted. Tuberculosis screening: No symptoms or risk factors identified. Assessment: 16:13 Reassessment: See triage assessment. ERP at bedside. ld1 16:51 Reassessment: Pt to CT now. ld1 19:27 General: Appears comfortable, Behavior is calm. Pain: Denies pain. Neuro: Level of ha1 Consciousness is awake, alert, obeys commands, Oriented to person, place. Cardiovascular: Capillary refill < 3 seconds Patient's skin is warm and dry. Respiratory: Airway is patent Respiratory effort is even, unlabored, Respiratory pattern is regular, symmetrical. Musculoskeletal: Circulation, motion, and sensation intact. Vital Signs: 16:08 BP 153 / 62; Pulse 72; Resp 18; Temp 98.2(O); Pulse Ox 96% on R/A; Weight 79.38 kg; ld1 Height 5 ft. 4 in. ; Pain 0/10; 19:02 BP 164 / 70; Pulse 68; Resp 18; Pulse Ox 95% on R/A; ld1 19:28 BP 158 / 63; Pulse 75; Resp 17 S; Pulse Ox 98% on R/A; ha1 20:30 BP 159 / 64; Pulse 70; Resp 17; Pulse Ox 96% ; rv 22:00 BP 144 / 62; Pulse 69; Resp 16; Temp 98; Pulse Ox 96% on R/A; rv 16:08 Body Mass Index 30.04 (79.38 kg, 162.56 cm) ld1 16:08 Pain Scale: Adult ld1 [place] Coma Score: 22:17 Eye Response: spontaneous(4). Motor Response: obeys commands(6). Verbal Response: rv oriented(5). Total: 15. ED Course: 16:08 Patient arrived in ED. ld1 16:08 Marcel Sykes MD is Attending Physician. rn 16:08 Arm band placed on right wrist. ld1 16:12 Triage completed. ld1 16:13 Patient has correct armband on for positive identification. Placed in gown. Bed in low ld1 position. Call light in reach. Side rails up X2. surveillance system monitor on. Pulse ox on. NIBP on. Door closed. Noise minimized. Warm blanket given. 16:13 No provider procedures requiring assistance completed. ld1 16:14 Marcia Crespo, RN is Primary Nurse. ld1 16:37 Flu Sent. ld1 16:37 SARS RAPID Sent. ld1 16:37 Urinalysis w/ reflexes Sent. ld1 16:51 Inserted saline lock: 20 gauge in left antecubital area, using aseptic technique. Blood ld1 collected. 16:56 CT Head Brain wo Cont In Process Unspecified. EDMS 17:10 XRAY Chest (1 view) In Process Unspecified. EDMS 17:34 Jeffrey Ochoa MD is Hospitalizing Provider. rn 17:47 Lactate w/ 2H reflex if indic. Sent. ld1 17:47 Blood Culture Adult (2) Sent. ld1 19:02 Report given to PERRI Jasso. ld1 20:57 Primary Nurse role handed off by Marcia Crespo RN vk 22:13 Braeden Grissom RN is Primary Nurse. rv 22:18 Patient admitted, IV remains in place. rv Administered Medications: 17:47 Drug: Rocephin IV 1 grams IV at calculated rate once; Given slow IV push per pharmacy ld1 instructions Route: IV; Rate: calculated rate; Site: left antecubital; 22:18 Follow up: Response: No adverse reaction; IV Status: Completed infusion rv 17:52 Drug: D5W IVPB 250 ml IVPB once; Verbal order per Dr. Sykes Route: IVPB; Site: left ld1 antecubital; 22:18 Follow up: IV Status: Completed infusion; IV Intake: 250ml rv Medication: 16:13 VIS not applicable for this client. ld1 Intake: 22:18 IV: 250ml; Total: 250ml. rv Outcome: 17:35 Decision to Hospitalize by Provider. rn 22:18 Admitted to Tele accompanied by nurse, via stretcher, room 422, with chart, Report rv called to [facility] rn 22:18 Condition: good 22:18 Instructed on the need for admit, 22:18 Patient left the ED. rv Signatures: Dispatcher [employer] Marcel Levine MD MD rn Vicente, Ronaldo RN RN Marcia Emmanuel RN RN ld1 Payal Smith RN RN 1 Jaja Olmstead
[2023-08-08 17:38] LABS: NT PRO-BNP > 175000 pg/mL (<125)
[2023-08-08] MEDS ORDERED: CEFTRIAXONE 1000 MG/VIAL ONE (17:46)
[2023-08-08] MEDS ORDERED: D5W 250 ML IV ONE (17:50)
[2023-08-08] MEDS ORDERED: ACETAMINOPHEN 325 MG TABLET PO PRN (19:40)
--- NOTE | 2023-08-08 19:44 | P.HP ---
Certification for Inpatient Patient admitted to: Inpatient With expected LOS: >2 Midnights Practitioner: I am a practitioner with admitting privileges, knowledge of patient current condition, hospital course, and medical plan of care. Services: Services provided to patient in accordance with Admission requirements found in Title 42 Section 412.3 of the Code of Federal Regulations Patient History Date of Service: 08/09/23 Reason for admission: Urinary tract infection, altered mentation. History of Present Illness: 68-year-old female patient with medical history significant for ESRD on dialysis, hypertension, hyperlipidemia, anemia of renal disease who came to the ED with complaint of altered mentation. She was found to be significantly altered and workup revealed UA highly concerning for urinary tract infection. She was started on empiric antibiotic therapy and was admitted for inpatient care. At bedside today patient continues to verbalize feeling of unwellness and her mentation is slightly improved. No diarrhea, nausea, vomiting episode. Allergies codeine Allergy (Intermediate, Verified 08/04/22 13:31) Itching promethazine [From Phenergan] Allergy (Intermediate, Verified 08/04/22 13:31) Itching adhesive tape Adverse Reaction (Verified 08/04/22 13:31) Itching/Hives/Rash Home Medications: Amiodarone HCl [Cordarone*] 200 mg PO DAILY 06/22/23 Apixaban [Eliquis *] 2.5 mg PO BID 06/22/23 Aspirin [Aspirin EC 81 MG] 81 mg PO DAILY 06/22/23 Atorvastatin Calcium [Lipitor] 40 mg PO BEDTIME 06/22/23 Bupropion HCl [Wellbutrin Sr] 150 mg PO DAILY 06/22/23 Cephalexin 500 mg PO DAILY 06/22/23 Cetirizine HCl 10 mg PO DAILY 06/22/23 Insulin Glargine,Hum.rec.anlog [Insulin Glargine] 5 units SQ BEDTIME 06/22/23 Levothyroxine [Synthroid*] 100 mcg PO DAILY 06/22/23 Loratadine 10 mg PO DAILY 06/22/23 Metoprolol Succinate 25 mg PO DAILY 06/22/23 Pantoprazole [Protonix Tab*] 40 mg PO DAILY 06/22/23 Polyethylene Glycol 8000 [Polyethylene Glycol] 17 g PO DAILY 06/22/23 Sacubitril/Valsartan [Entresto 24 mg-26 mg Tablet] 0.5 tab PO BID 06/22/23 - Past Medical/Surgical History Diabetic: Yes -: IDDM -: Hypertension -: Hypothyroidism -: ESRD HD MWF -: hyperlipidemia -: depression -: Paralyzed Stomach -: Neuropathy -: CAD -: Back fusion -: bilateral total knee replacements -: bilateral carpal tunnel sx -: c section -: thyroidectomy -: neck fusion -: PD Cath then removed -: Cholecystectomy Psychosocial/ Personal History: Patient lives at [facility]. - Family History Mother -: Heart disease, Hypertension, Lung disease, Cancer Notes: breast ca Father -: Heart disease, Hypertension, Other (see notes) Notes: Alzheimer's - Social History Alcohol use: No CD- Drugs: No Caffeine use: Yes Review of Systems General: Weakness, Malaise Eyes: Unremarkable ENT: Unremarkable Respiratory: Unremarkable Cardiovascular: Unremarkable Gastrointestinal: Unremarkable Genitourinary: As per HPI Musculoskeletal: Unremarkable Integumentary: Unremarkable Neurological: Unremarkable Lymphatics: Unremarkable Physical Examination - Physical Exam General: Alert HEENT: Atraumatic, Normocephalic Neck: Supple Respiratory: Normal air movement Cardiovascular: Regular rate/rhythm, Normal S1 S2 Gastrointestinal: Soft and benign Musculoskeletal: No swelling Neurological: Normal speech - Studies Laboratory Data (last 24 hrs) 08/08/23 08/08/23 16:49 16:49 WBC 4.70 Hgb 8.2 L Hct 24.1 L Plt Count 95 L Sodium 140 Potassium 2.8 L BUN 11 Creatinine 1.58 H Glucose 72 L Microbiology Data (last 24 hrs): 08/08/23 16:30 Nasopharnyx Influenza Type A Antigen Screen - Final 08/08/23 16:30 Nasopharnyx Influenza Type B Antigen Screen - Final Assessment and Plan - Plan Urinary tract infection: Deemed secondary to ESRD status. Antibiotic therapy started for management. Urine culture obtained. Will adjust antibiotic therapy based on urine culture report. Toxic/metabolic encephalopathy. Deemed secondary to UTI episode. Mentation is slightly better with onset of antibiotic therapy. Monitor cultures for adjustment as needed. Continue supportive care. ESRD: We will continue dialysis as per brim edge trimmer recommendation. Renal diet to be continued and phosphorus binder was made to also be continued. Anemia of renal disease: Will continue Epogen dose and monitor hemoglobin level as per nephrology recommendation Hypertension: We will monitor vital signs per unit protocol and continue antihypertensive medications. Prophylaxis: Lovenox for DVT prophylaxis CODE STATUS: Full code. Disposition: We will treat underlying infections and discharge her once she is deemed clinically stable. - Advance Directives Does patient have a Living Will: No Does patient have a Durable POA for Healthcare: No
[2023-08-09] MEDS: HEPARIN 5000 UNIT/ML 1 ML VIAL SQ SCH ×3 (00:27→16:51)
[2023-08-09 05:57] LABS: Absolute Lymphocytes (CBC) 0.3 K/uL (0.7-4.9); Hematocrit 26.3 % (36.0-45.0); Lymphocytes % 4.5 % (15.3-44.8); MCV 96.1 fL (80-100); MPV 8.1 fL (7.6-11.3); Platelets 110 thou/uL (152-406); RBC Red Blood Cell Count 2.73 M/uL (3.86-4.86)
[2023-08-09 06:12] LABS: Potassium 2.9 mEq/L (3.5-5.1)
[2023-08-09] MEDS ORDERED: CEFTRIAXONE 1,000 MG in NA CHLORIDE 0.9% 50 ML IVPB SCH (09:00)
--- NOTE | 2023-08-09 12:49 | P.PN ---
Subjective Date of Service: 08/09/23 Chief Complaint: Urinary tract infection, altered mentation. Pt was sleeping when I saw her. She was also arousable. She is getting iv rocephin for UTI. No complaints. Review of Systems Unremarkable General: Unremarkable Eyes: Unremarkable ENT: Unremarkable Respiratory: Unremarkable Cardiovascular: Unremarkable Gastrointestinal: Unremarkable Genitourinary: Unremarkable Musculoskeletal: Unremarkable Integumentary: Rash, Lesions Neurological: Unremarkable Lymphatics: Unremarkable Physical Examination - Vital Signs Temperature: 97 F Blood Pressure: 167/69 Pulse: 73 Respirations: 16 Pulse Ox (%): 94 - Physical Exam General: Alert, In no apparent distress, Oriented x3 HEENT: Atraumatic, Normocephalic, PERRLA Neck: Supple, 2+ carotid pulse no bruit Respiratory: Clear to auscultation bilaterally, Normal air movement Cardiovascular: No edema, Normal pulses, Regular rate/rhythm, Normal S1 S2 Capillary refill: <2 Seconds Gastrointestinal: Normal bowel sounds, Soft and benign, Non-distended Musculoskeletal: No clubbing, No swelling Integumentary: Skin breakdown, Pressure ulcer Neurological: Normal gait, Normal speech, Normal strength at 5/5 x4 extr Lymphatics: No axilla or inguinal lymphadenopathy - Studies Laboratory Data (last 24 hrs) 08/08/23 08/08/23 16:49 16:49 WBC 4.70 Hgb 8.2 L Hct 24.1 L Plt Count 95 L Sodium 140 Potassium 2.8 L BUN 11 Creatinine 1.58 H Glucose 72 L Microbiology Data (last 24 hrs): 08/08/23 16:30 Nasopharnyx Influenza Type A Antigen Screen - Final 08/08/23 16:30 Nasopharnyx Influenza Type B Antigen Screen - Final Assessment And Plan - Plan Urinary tract infection: Will continue rocephin and follow up urine cx. Acute encephalopathy: Likely due to UTI. Continue rocephin and follow up urine cx. Mentation is better with onset of antibiotic therapy. ESRD: Continue dialysis as per mobile phlebotomist recommendation. Renal diet to be continued and phosphorus binder was made to also be continued. Anemia of renal disease: Hgb is 8.7. Monitor H/H. transfuse when Hgb < 7. Will continue Epogen dose. Hypertension: Will continue antihypertensive medications. DVT Prophylaxis: Lovenox CODE STATUS: Full code. Disposition: Pending hospital course.
--- NOTE | 2023-08-09 13:23 | EKG ---
Test Date: 2023-08-08 Test Time: 16:27:18 Book Critic: SAL MEASUREMENT RESULTS: Intervals: Rate: 71 TN: QRSD: 118 QT: 370 QTc: 402 [place]: P: TN: QRS: -23 T: 120 INTERPRETIVE STATEMENTS: Sinus rhythm Nonspecific intraventricular conduction delay Nonspecific ST and T wave abnormality Abnormal ECG Compared to ECG 07/13/2023 15:45:52 Intraventricular conduction delay now present ST (T wave) deviation still present Electronically Signed On 08-09-23 13:22:01 OTHER WOOD PROCESSING MACHINE OPERATOR by Imer Lantigua
[2023-08-09] MEDS ORDERED: ACETAMINOPHEN 325 MG TABLET PO PRN (20:50)
[2023-08-09] MEDS: BUPROPRION HCL S.R. 150MG TAB PO SCH (21:00)
[2023-08-09] MEDS: INSULIN GLARGINE 100 UNIT/ML SQ SCH (21:00)
[2023-08-09] MEDS: APIXABAN 2.5 MG TABLET PO SCH (21:25)
[2023-08-09] MEDS: ATORVASTATIN 40 MG TAB PO SCH (21:25)
[2023-08-09] MEDS: SACUBITRIL/VALSARTAN 24/26 MG TAB PO SCH (21:25)
[2023-08-09] MEDS: ASCORBIC ACID 500 MG TABLET PO SCH (21:25)
[2023-08-09] MEDS: MELATONIN 5 MG TABLET PO PRN (21:26)
[2023-08-10] MEDS: HEPARIN 5000 UNIT/ML 1 ML VIAL SQ SCH ×2 (00:25→10:46)
[2023-08-10 03:25] LABS: Absolute Lymphocytes (CBC) 0.4 K/uL (0.7-4.9); Hematocrit 26.3 % (36.0-45.0); Lymphocytes % 7.1 % (15.3-44.8); MCV 96.1 fL (80-100); MPV 7.9 fL (7.6-11.3); Platelets 106 thou/uL (152-406); RBC Red Blood Cell Count 2.73 M/uL (3.86-4.86)
[2023-08-10 03:37] LABS: Potassium 2.8 mEq/L (3.5-5.1)
[2023-08-10] MEDS: ASPIRIN EC 81 MG TAB PO SCH (10:42)
[2023-08-10] MEDS: LORATADINE 10 MG TAB PO SCH (10:42)
[2023-08-10] MEDS: LEVOTHYROXINE SOD 0.125 MG TAB PO SCH (10:42)
[2023-08-10] MEDS: AMIODARONE HCL 200 MG TAB PO SCH (10:43)
[2023-08-10] MEDS: POTASSIUM CL SA 10 MEQ TAB PO SCH ×2 (10:43→12:39)
[2023-08-10] MEDS: ASCORBIC ACID 500 MG TABLET PO SCH ×2 (10:43→20:30)
[2023-08-10] MEDS: FERROUS SULFATE 325 MG TAB PO SCH (10:43)
[2023-08-10] MEDS: PANTOPRAZOLE 40MG TABLET PO SCH (10:43)
[2023-08-10] MEDS: BUPROPRION HCL S.R. 150MG TAB PO SCH ×2 (10:44→20:30)
[2023-08-10] MEDS: SACUBITRIL/VALSARTAN 24/26 MG TAB PO SCH ×2 (10:47→20:30)
[2023-08-10] MEDS: METOPROLOL XL 25 MG TAB PO SCH (10:47)
[2023-08-10] MEDS: APIXABAN 2.5 MG TABLET PO SCH ×2 (10:47→20:31)
--- NOTE | 2023-08-10 10:48 | P.PN ---
Subjective Date of Service: 08/10/23 Chief Complaint: Urinary tract infection, altered mentation. Pt is sleepy but arousable. AAOx3. She is getting iv rocephin for UTI. Consulted PT. Will continue wound care. No complaints. Review of Systems Unremarkable General: Unremarkable Eyes: Unremarkable ENT: Unremarkable Respiratory: Unremarkable Cardiovascular: Unremarkable Gastrointestinal: Unremarkable Genitourinary: Unremarkable Musculoskeletal: Unremarkable Integumentary: Lesions, Bruising Neurological: Unremarkable Lymphatics: Unremarkable Physical Examination - Vital Signs Temperature: 97.2 F Blood Pressure: 160/74 Pulse: 71 Respirations: 18 Pulse Ox (%): 91 - Physical Exam General: Alert, In no apparent distress, Oriented x3 HEENT: Atraumatic, Normocephalic Neck: Supple, 2+ carotid pulse no bruit Respiratory: Clear to auscultation bilaterally, Normal air movement Cardiovascular: No edema, Normal pulses, Regular rate/rhythm, Normal S1 S2 Capillary refill: <2 Seconds Gastrointestinal: Normal bowel sounds, Soft and benign, Non-distended Musculoskeletal: No clubbing, No swelling Integumentary: Skin lesion Neurological: Normal speech, Normal strength at 5/5 x4 extr, Normal tone, Sensation intact Lymphatics: No axilla or inguinal lymphadenopathy Assessment And Plan - Plan Urinary tract infection: Will continue rocephin and follow up urine cx. Acute encephalopathy: Likely due to UTI. Continue rocephin and follow up urine cx. Mentation is better with onset of antibiotic therapy. ESRD: Continue dialysis as per Sharepoint Specialist recommendation. Renal diet to be continued and phosphorus binder was made to also be continued. Hypokalemia: K is 2.8. Will replete and monitor. Hypoglycemia: glucose is 60. Will continue hypoglycemia protocol. Anemia of renal disease: Hgb is 8.7. Monitor H/H. transfuse when Hgb < 7. Will continue Epogen dose. Skin lesions: Will continue wound care. Hypertension: Will continue antihypertensive medications. DVT Prophylaxis: Lovenox CODE STATUS: Full code. Disposition: Pending hospital course.
--- NOTE | 2023-08-10 15:14 | P.CNS ---
Date of Consult: 08/10/23 Reason for Consult: ESRD Requesting Physician: Haim Morales Chief Complaint: Urinary tract infection, altered mentation. History of Present Illness: 68F with past medical history of ESRD on HD MWF, hypertension, diabetes, CAD st atus post CABG status post PCI, CHF, PAD, & wound infection of lower extremities, who p/w AMS & being treated for UTI. BNP elevated. Admittted for further eval & mngt. She received HD today. Allergies codeine Allergy (Intermediate, Verified 08/04/22 13:31) Itching promethazine [From Phenergan] Allergy (Intermediate, Verified 08/04/22 13:31) Itching adhesive tape Adverse Reaction (Verified 08/04/22 13:31) Itching/Hives/Rash Home Medications: Amiodarone HCl [Cordarone*] 200 mg PO DAILY 06/22/23 Apixaban [Eliquis *] 2.5 mg PO BID 06/22/23 Aspirin [Aspirin EC 81 MG] 81 mg PO DAILY 06/22/23 Atorvastatin Calcium [Lipitor] 40 mg PO BEDTIME 06/22/23 Bupropion HCl [Wellbutrin Sr] 150 mg PO Q12HR 06/22/23 Insulin Glargine,Hum.rec.anlog [Insulin Glargine] 5 units SQ BEDTIME 06/22/23 Levothyroxine [Synthroid*] 125 mcg PO DAILY 06/22/23 Loratadine 10 mg PO DAILY 06/22/23 Metoprolol Succinate 25 mg PO DAILY 06/22/23 Pantoprazole [Protonix Tab*] 40 mg PO DAILY 06/22/23 Polyethylene Glycol 8000 [Polyethylene Glycol] 17 g PO DAILY PRN 06/22/23 Sacubitril/Valsartan [Entresto 24 mg-26 mg Tablet] 0.5 tab PO BID 06/22/23 Acetaminophen 325 mg PO Q4HR PRN 08/09/23 Ascorbic Acid 500 mg PO BID 08/09/23 Ferrous Sulfate 325 mg PO DAILY 08/09/23 Hydrocodone Bit/Acetaminophen [Hydrocodon-Acetaminophen 5-325] 1 tab PO PRN PRN 08/09/23 Insulin Lispro [Humalog] See Protocol SQ BEDTIME 08/09/23 Loperamide HCl [Imodium A-D] 2 mg PO 08/09/23 Melatonin 5 mg PO BEDTIME PRN PRN 08/09/23 - Past Medical/Surgical History Diabetic: Yes -: IDDM -: Hypertension -: Hypothyroidism -: ESRD HD MWF -: hyperlipidemia -: depression -: Paralyzed Stomach -: Neuropathy -: CAD -: Back fusion -: bilateral total knee replacements -: bilateral carpal tunnel sx -: c section -: thyroidectomy -: neck fusion -: PD Cath then removed -: Cholecystectomy Psychosocial/ Personal History: Patient lives at [facility]. - Family History Mother Medical History: Heart disease, Hypertension, Lung disease, Cancer Notes: breast ca Father Medical History: Heart disease, Hypertension, Other (see notes) Notes: Alzheimer's - Social History Smoking Status: Unknown if ever smoked Alcohol use: No CD- Drugs: No Caffeine use: Yes Review of Systems General: Weakness Eyes: Unremarkable ENT: Unremarkable Respiratory: Unremarkable Cardiovascular: Unremarkable Gastrointestinal: Unremarkable Genitourinary: Unremarkable Musculoskeletal: Atrophy Integumentary: Lesions Neurological: Other (+Lethargy) Lymphatics: Unremarkable Physical Examination Temp Pulse Resp BP Pulse Ox 97.7 F 73 17 172/74 H 97 08/10/23 12:00 08/10/23 12:00 08/10/23 12:00 08/10/23 12:00 08/10/23 12:00 General: Other (Chronically ill-appearing) HEENT: Atraumatic, Normocephalic Neck: Supple Respiratory: Other (symmetric chest expansion) Cardiovascular: No rubs, No murmurs Gastrointestinal: Soft and benign, No guarding Musculoskeletal: No clubbing Integumentary: No warmth Neurological: Normal tone Urinary: Other (no bladder distention) External genitalia: Deferred Rectal: Deferred Conclusions/Impression: 1. ESRD on HD MWF. HD received today. 2. Hypertension, controlled, optimal. Continue current med regimen. 3. Anemia of chronic kidney disease. Continue XENIA. 4. UTI. On abx. F/u UCx. 5. AMS likely 2/2 UTI. Abx as above. 6. Renal osteodystrophy. Monitor serum Ca & Phos. 7. Wound infection of lower extremities. Continue abx. Follow up with Surgery. 8. Hypokalemia. Correction via HD.
[2023-08-10 15:46] LABS: Hepatitis B surface AG Interp. Nonreactive (Nonreactive)
[2023-08-10] MEDS: ONDANSETRON 4 MG/2 ML VIAL IV PRN (18:25)
[2023-08-10] MEDS: COLLAGENASE 30 GM OINTMENT TOP SCH (20:31)
[2023-08-10] MEDS: ATORVASTATIN 40 MG TAB PO SCH (20:31)
[2023-08-10] MEDS: SILVER SULFADIAZINE 1% 50 GM TOP SCH (20:31)
[2023-08-10] MEDS: HYDROCODONE/APAP 5/325 MG TAB PO PRN (20:32)
[2023-08-10] MEDS: INSULIN GLARGINE 100 UNIT/ML SQ SCH (20:32)
[2023-08-10] MEDS: MELATONIN 5 MG TABLET PO PRN (20:33)
[2023-08-11] MEDS: HYDROCODONE/APAP 5/325 MG TAB PO PRN (02:43)
[2023-08-11 06:08] VITALS: TEMP 96.8
[2023-08-11 06:58] LABS: Absolute Lymphocytes (CBC) 0.4 K/uL (0.7-4.9); Hematocrit 26.3 % (36.0-45.0); Lymphocytes % 6.4 % (15.3-44.8); MCV 95.7 fL (80-100); MPV 7.9 fL (7.6-11.3); Platelets 105 thou/uL (152-406); RBC Red Blood Cell Count 2.75 M/uL (3.86-4.86)
[2023-08-11 07:53] VITALS: O2SAT 94
[2023-08-11] MEDS: SACUBITRIL/VALSARTAN 24/26 MG TAB PO SCH (09:13)
[2023-08-11] MEDS: APIXABAN 2.5 MG TABLET PO SCH (09:14)
[2023-08-11] MEDS: PANTOPRAZOLE 40MG TABLET PO SCH (09:14)
[2023-08-11] MEDS: LEVOTHYROXINE SOD 0.125 MG TAB PO SCH (09:15)
[2023-08-11] MEDS: ASPIRIN EC 81 MG TAB PO SCH (09:15)
[2023-08-11] MEDS: FERROUS SULFATE 325 MG TAB PO SCH (09:15)
[2023-08-11] MEDS: METOPROLOL XL 25 MG TAB PO SCH (09:16)
[2023-08-11] MEDS: ASCORBIC ACID 500 MG TABLET PO SCH (09:16)
[2023-08-11] MEDS: AMIODARONE HCL 200 MG TAB PO SCH (09:17)
[2023-08-11] MEDS: LORATADINE 10 MG TAB PO SCH (09:17)
[2023-08-11] MEDS: COLLAGENASE 30 GM OINTMENT TOP SCH (09:19)
[2023-08-11] MEDS: SILVER SULFADIAZINE 1% 50 GM TOP SCH (09:19)
[2023-08-11] MEDS: BUPROPRION HCL S.R. 150MG TAB PO SCH (09:22)
--- NOTE | 2023-08-11 09:27 | P.PN ---
Subjective Date of Service: 08/11/23 Chief Complaint: Urinary tract infection, altered mentation. Pt is sleepy but arousable. AAOx3. She is getting iv rocephin for UTI. Urine culture is growing E. faecium. Will change to gentamicin. Pt had dialysis yesterday. Will continue wound care. Consulted PT. Will continue wound care. No complaints. Review of Systems Unremarkable General: Unremarkable Eyes: Unremarkable ENT: Unremarkable Respiratory: Unremarkable Cardiovascular: Unremarkable Gastrointestinal: Unremarkable Genitourinary: Unremarkable Musculoskeletal: Unremarkable Integumentary: Lesions Neurological: Unremarkable Lymphatics: Unremarkable Physical Examination - Vital Signs Temperature: 96.8 F Blood Pressure: 135/68 Pulse: 70 Respirations: 16 Pulse Ox (%): 94 - Physical Exam General: Alert, In no apparent distress, Oriented x3 HEENT: Atraumatic, Normocephalic Neck: Supple, 2+ carotid pulse no bruit Respiratory: Clear to auscultation bilaterally, Normal air movement Cardiovascular: No edema, Normal pulses, Regular rate/rhythm, Normal S1 S2 Capillary refill: <2 Seconds Gastrointestinal: Normal bowel sounds, Soft and benign, Non-distended Musculoskeletal: No clubbing, No swelling Integumentary: Skin lesion, Pressure ulcer Neurological: Normal speech, Normal strength at 5/5 x4 extr, Normal tone, Sensation intact, Cranial nerves 3-12 intact Lymphatics: No axilla or inguinal lymphadenopathy - Studies Microbiology Data (last 24 hrs): 08/08/23 16:30 Clean Catch Urine [place] Count - Final >100,000 CFU/ML. 08/08/23 16:30 Clean Catch Urine - Final Enterococcus Faecium Assessment And Plan - Plan Urinary tract infection: Will discontinue rocephin. Urine cx is growing E. faecium. Will switch to linezolid. Acute encephalopathy: Likely due to UTI. Continue linezolid. Urine cx is growing E. faecium Mentation is better with onset of antibiotic therapy. ESRD: Continue dialysis as per Director Of Assisted Living recommendation. Renal diet to be continued and phosphorus binder was made to also be continued. Hypokalemia: K is 4.0 <- 2.8. Will replete and monitor. Hypoglycemia: glucose is 164. Will continue hypoglycemia protocol. Anemia of renal disease: Hgb is 8.7. Monitor H/H. transfuse when Hgb < 7. Will continue Epogen dose. Skin lesions: Will continue wound care. Hypertension: Will continue antihypertensive medications. DVT Prophylaxis: Lovenox Code: Full code. Disposition: Pending hospital course.
[2023-08-11 09:29] VITALS: BP 135/68
[2023-08-11 10:14] LABS: Anisocytosis 1+; Blood Morphology Comment NOTED (NOT SEEN); Platelet Estimate DECR; White Blood Cell Scan OK (OK)
--- NOTE | 2023-08-11 10:45 | PN ---
Date of Progress Note: 08/11/2023 Subjective: Patient was admitted to the hospital with altered mental status, hypertension. Patient had dialyzed yesterday, feeling better. Physical Examination: Vital Signs: Blood pressure 135/68, pulse of 70, afebrile. Chest: Clear to auscultation. Heart: S1, S2. Regular. Abdomen: Soft, nontender. Extremities: No edema. Neuro: Alert. No focality. Laboratory Data: Hemoglobin 8.7. Sodium 143 potassium 4.7 bicarb 20 BUN 50 creatinine 2.8 Current Medications: The patient is on include: 1. Loratadine. 2. Aspirin. 3. Eliquis. 4. Amiodarone. 5. Atorvastatin. 6. Entresto. Assessment And Plan: 1. End-stage renal disease. We will continue the patient on dialysis. Sunday, , and Sunday. 2. Secondary hyperparathyroid. 3. Hypertension, controlled, optimal. 4. Anemia of chronic kidney disease, stable. 5. Hypokalemia, status post dialysis, corrected. 6. Overvolume, status post challenge corrected, currently on room air. Patient is cleared from the Renal standpoint for discharge planning. CR Voice ID: [id number] Report ID: [id number]
--- NOTE | 2023-08-11 11:43 | P.DS ---
Admission Date: 08/08/23 Discharge Date: 08/11/23 Disposition: TRANSFER TO [facility] Discharge Condition: GOOD Reason for Admission: Urinary tract infection, altered mentation. Brief History of Present Illness: 68-year-old female patient with medical history significant for ESRD on dialysis, hypertension, hyperlipidemia, anemia of renal disease who came to the ED with complaint of altered mentation. She was found to be significantly altered and workup revealed UA highly concerning for urinary tract infection. She was started on empiric antibiotic therapy and was admitted for inpatient care. At bedside today patient continues to verbalize feeling of unwellness and her mentation is slightly improved. No diarrhea, nausea, vomiting episode. Hospital Course: Pt is a 68yo female with past medical history of ESRD on dialysis, hypertension, hyperlipidemia, and anemia of renal disease who presented with altered mental status due to UTI. We started rocephin and follow up urine cx. Pt's mentation improved and she became AAOx3. Urine culture grew VRE ( Enteroccocu Faecium) and we switched to linezolid 600mg pi iv BID. Pt was discharged with linezolid 600mg po BID for 1 week. We also advised her to hold the Wellbutrin for 1 week while taking the linezolid. Pt is aware not to take both Wellbutrin and linezolid. She will resume the wellbutrin in 1 week, after completion of Linezolid. We also c ontinued dialysis and wound care. We repleted potassium and resolved hypoglycemia with hypoglycemia protocol. We also continued home med for other chronic medical problems. Pt was in NAD prior to discharge to SNF. Vital Signs/Physical Exam: Temp Pulse Resp BP Pulse Ox 96.8 F 70 16 135/68 94 08/11/23 09:26 08/11/23 09:26 08/11/23 09:26 08/11/23 09:26 08/11/23 09:26 Laboratory Data at Discharge: WBC 5.80 thou/uL (4.3-10.9) 08/11/23 06:27 Hgb 8.7 g/dL (12.0-15.0) L 08/11/23 06:27 Hct 26.3 % (36.0-45.0) L 08/11/23 06:27 Plt Count 105 thou/uL (152-406) L 08/11/23 06:27 Sodium 140 mEq/L (136-145) 08/11/23 06:27 Potassium 4.0 mEq/L (3.5-5.1) 08/11/23 06:27 BUN 15 mg/dL (7-18) 08/11/23 06:27 Creatinine 2.53 mg/dL (0.55-1.02) H 08/11/23 06:27 Glucose 164 mg/dL (74-106) H 08/11/23 06:27 Home Medications: Amiodarone HCl [Cordarone*] 200 mg PO DAILY 06/22/23 Apixaban [Eliquis *] 2.5 mg PO BID 06/22/23 Aspirin [Aspirin EC 81 MG] 81 mg PO DAILY 06/22/23 Atorvastatin Calcium [Lipitor] 40 mg PO BEDTIME 06/22/23 Bupropion HCl [Wellbutrin Sr] 150 mg PO Q12HR 06/22/23 Insulin Glargine,Hum.rec.anlog [Insulin Glargine] 5 units SQ BEDTIME 06/22/23 Levothyroxine [Synthroid*] 125 mcg PO DAILY 06/22/23 Loratadine 10 mg PO DAILY 06/22/23 Metoprolol Succinate 25 mg PO DAILY 06/22/23 Pantoprazole [Protonix Tab*] 40 mg PO DAILY 06/22/23 Polyethylene Glycol 8000 [Polyethylene Glycol] 17 g PO DAILY PRN 06/22/23 Sacubitril/Valsartan [Entresto 24 mg-26 mg Tablet] 0.5 tab PO BID 06/22/23 Acetaminophen 325 mg PO Q4HR PRN 08/09/23 Ascorbic Acid 500 mg PO BID 08/09/23 Ferrous Sulfate 325 mg PO DAILY 08/09/23 Hydrocodone Bit/Acetaminophen [Hydrocodon-Acetaminophen 5-325] 1 tab PO PRN PRN 08/09/23 Insulin Lispro [Humalog] See Protocol SQ BEDTIME 08/09/23 Loperamide HCl [Imodium A-D] 2 mg PO 08/09/23 Melatonin 5 mg PO BEDTIME PRN PRN 08/09/23 Linezolid 600 mg PO BID 7 Days #14 tab 08/11/23 Silver Sulfadiazine Crm [Silvadene*] 1 appl TOP DAILY 14 Days #1 tube 08/11/23 New Medications: Linezolid 600 mg PO BID 7 Days #14 tab Silver Sulfadiazine Crm [Silvadene*] 1 appl TOP DAILY 14 Days #1 tube Physician Discharge Instructions: Continue ad israel activity. COntinue wound care. Take Linezolid 600mg po BID for 1 week. Do not take Wellbutrin until you complete the linezolid in 1 week. Do not take linezolid and wellbutrin. Follow up with PCP within 2 weeks. Continue dialysis and wound care. Diet: Renal Activity: Ad israel Followup: Dann Hernandez, [Primary Care Provider] -
[2023-08-11] MEDS ORDERED: NA CHLORIDE 0.9% IVPB SCH (12:00)
[2023-08-11] MEDS ORDERED: GENTAMICIN IVPB SCH (12:00)
[2023-08-11] MEDS ORDERED: LINEZOLID 600 MG IVPB 600 MG/300 ML BAG IV ONE (12:00)
[2023-08-11] MEDS: ONDANSETRON 4 MG/2 ML VIAL IV PRN (14:23)
[2023-08-11] MEDS ORDERED: GENTAMICIN 80 MG/100 ML BAG 80 MG/100 ML BAG IV SCH (17:00)
[2023-08-11] MEDS ORDERED: LINEZOLID 600 MG TAB PO SCH (21:00)
== END 2023-08-11 15:25 | DRG 689 ==
LOC: ER 16:07 → ERHOLD 19:40 → 4TH 21:22
PROVIDERS: ADMIT Internal Medicine Nephrology; ATTEND Hospitalist
PROC: 5A1D70Z Performance of Urinary Filtration, Intermittent, Less than 6 Hours Per Day (ICD-10-PCS; principal; 2023-08-09)
DX: N39.0 Urinary tract infection, site not specified (principal); G92.8 Other toxic encephalopathy; N18.6 End stage renal disease; I12.0 Hypertensive chronic kidney disease with stage 5 chronic kidney disease or end stage renal disease; N25.81 Secondary hyperparathyroidism of renal origin; E11.22 Type 2 diabetes mellitus with diabetic chronic kidney disease; E11.649 Type 2 diabetes mellitus with hypoglycemia without coma; D63.1 Anemia in chronic kidney disease; E03.9 Hypothyroidism, unspecified; N25.0 Renal osteodystrophy; E87.6 Hypokalemia; E87.70 Fluid overload, unspecified; L98.9 Disorder of the skin and subcutaneous tissue, unspecified; I25.10 Atherosclerotic heart disease of native coronary artery without angina pectoris; B95.2 Enterococcus as the cause of diseases classified elsewhere; I25.2 Old myocardial infarction; Z88.5 Allergy status to narcotic agent; Z79.4 Long term (current) use of insulin; Z95.5 Presence of coronary angioplasty implant and graft; Z99.2 Dependence on renal dialysis; Z11.52 Encounter for screening for COVID-19; Z79.82 Long term (current) use of aspirin; Z79.01 Long term (current) use of anticoagulants; Z90.49 Acquired absence of other specified parts of digestive tract; Z96.653 Presence of artificial knee joint, bilateral; Z79.899 Other long term (current) drug therapy; Z79.890 Hormone replacement therapy
CPT/HCPCS: 36415; 70450; 71045; 80048; 81001; 82947; 83605; 83880; 85025; 87040; 87077; 87086; 87088; 87186; 87340; 87804; 87811; 90935; 93005; 97161; J0696; J1580; J1644; J2020; J2405; J3590; J7060

== ENCOUNTER → 2023-09-14 | Emergency (ER) | payer OTHER ==
[~2023-09-14] MED LIST: NA CHLORIDE 0.9% 1,000 ML ONE; NA CHLORIDE 0.9% 100 ML ONE; NA CHLORIDE 0.9% 250 ML ONE; PIPERACIL/TAZO 2.25 GM VIAL IV ONE; PIPERACIL/TAZO 3.375 GM VIAL IV ONE; SILVER SULFADIAZINE 1% 25 GM TOP ONE; VANCOMYCIN 1 GM/VIAL ONE
[2023-09-14 12:13] LABS: Absolute Lymphocytes (CBC) 0.2 K/uL (0.7-4.9); Basophils % 0.3 % (0-1.3); Hematocrit 25.6 % (36.0-45.0); Lymphocytes % 1.7 % (15.3-44.8); MCV 99.6 fL (80-100); MPV 8.3 fL (7.6-11.3); Platelets 98 thou/uL (152-406); RBC Red Blood Cell Count 2.57 M/uL (3.86-4.86)
[2023-09-14 12:15] LABS: Protime INR 1.4
[2023-09-14 12:54] LABS: ALT/SGPT 31 U/L (13-56); AST/SGOT 40 U/L (15-37); Albumin 2.2 g/dL (3.4-5.0); Albumin/Globulin Ratio 0.6 (1.1-1.8); Alkaline Phosphatase 163 U/L (45-117); Anion Gap 9.4 mEq/L (5.0-15.0); BUN Blood Urea Nitrogen 30 mg/dL (7-18); Bicarbonate 27 mEq/L (21-32); Bilirubin Direct 0.8 mg/dL (0-0.2); Bilirubin Indirect, Calculated 0.4 mg/dL (0.2-0.8); Bilirubin Total 1.2 mg/dL (0.2-1.0); Glomerular Filtration Rate 14 ml/min (=/>90); Glucose Level 127 mg/dL (74-106); Lipase 8 U/L (13-75); Magnesium 2.1 mg/dL (1.6-2.4); Potassium 3.4 mEq/L (3.5-5.1); Protein, Total 5.9 g/dL (6.4-8.2); Sodium Level 138 mEq/L (136-145); Troponin High Sensitivity 43.7 pg/mL (<58.9)
[2023-09-14 12:58] LABS: NT PRO-BNP > 175000 pg/mL (<125)
[2023-09-14 13:02] LABS: Blood Morphology Comment NOT SEEN (NOT SEEN); Platelet Estimate DECR; White Blood Cell Scan OK (OK)
--- NOTE | 2023-09-14 13:37 | RAD REPORT ---
EXAM DESCRIPTION: RAD - Foot Left 3 View - 09/14/2023 1:23 pm CLINICAL HISTORY: PAIN COMPARISON: Foot Left 2 View dated 09/18/2022; Foot Left 3 View dated 08/26/2022; Hand Left 3 View susana ed 09/14/2023; Foot Right 3 View dated 09/14/2023; Chest Single View dated 09/14/2023 FINDINGS/IMPRESSION: No acute fracture. No malalignment. Calcaneal spurring. Peripheral vascular jose cifications. No radiographic evidence of osteomyelitis.
--- NOTE | 2023-09-14 13:40 | RAD REPORT ---
EXAM DESCRIPTION: RAD - Hand Left 3 View - 09/14/2023 1:24 pm CLINICAL HISTORY: PAIN COMPARISON: Hand Left 3 View dated 01/27/2023 FINDINGS/IMPRESSION: There has been partial amputation of the third finger at the level of the MCP j oint. There is loss of cortex along the ulnar aspect of the third metacarpal head concerning for oste omyelitis. There is blunting at the second finger distal phalangeal tuft which could be from a fractu re, osteolysis, or osteomyelitis.
--- NOTE | 2023-09-14 13:41 | RAD REPORT ---
EXAM DESCRIPTION: RAD - Chest Single View - 09/14/2023 1:23 pm CLINICAL HISTORY: COUGH COMPARISON: Chest Single View dated 08/08/2023; Chest Single View dated 07/13/2023; Chest Single View d ated 06/20/2023; Chest Single View dated 06/14/2023 FINDINGS: Lines: Right IJ approach dialysis catheter . Lungs: Diffuse prominence of the pulmonary interstitium. This is increased since 08/08/2023 . Pleural: No significant pleural effusions or pneumothorax. Cardiac: Cardiomegaly. Sternotomy. Mediastinum: Within normal limits. Bones: No acute fractures. ACDF . Other: None IMPRESSION: Mild increased interstitial edema compared with 08/08/2023 .
--- NOTE | 2023-09-14 13:45 | RAD REPORT ---
EXAM DESCRIPTION: RAD - Foot Right 3 View - 09/14/2023 1:23 pm CLINICAL HISTORY: PAIN COMPARISON: Foot Right 2 View dated 10/14/2022; Foot Right 2 View dated 09/18/2022 FINDINGS/IMPRESSION: Possible nondisplaced fracture at the base of the second proximal phalanx at th e metaphysis. This is only seen on one view. Correlate with site of pain. Peripheral vascular calcifi cations are noted. Cortical thickening evident at the metatarsals may be from poor circulation. Calca phoebe spurs. Osteopenia.
--- NOTE | 2023-09-14 13:51 | ER ---
Nurse's Notes [facility] Name: Meseret Gallego Age: 68 yrs Sex: Female : 1955 Arrival Date: 09/14/2023 Time: 11:08 Bed 16 Private MD: Diagnosis: Dependence on renal dialysis;Anemia, unspecified;Anemia in chronic kidney disease;Necrotizing fasciitis;Other synovitis and tenosynovitis, left hand-LRFT HAND AND FOREARM;Elevated white blood cell count Presentation: 09/13 11:18 Chief complaint: EMS states: they were toned out by matt for pt not feeling well. she kc6 did not receive her session today. pt is from [facility] and has been getting wound care to her YEIMI heels and left hand. Coronavirus screen: At this time, the client does not indicate any symptoms associated with coronavirus-19. Ebola Screen: No symptoms or risks identified at this time. Initial Sepsis Screen: Does the patient meet any 2 criteria? No. Patient's initial sepsis screen is negative. Does the patient have a suspected source of infection? No. Patient's initial sepsis screen is negative. Risk Assessment: Do you want to hurt yourself or someone else? Patient reports no desire to harm self or others. Onset of symptoms was September 14, 2023. 11:18 Method Of Arrival: EMS: [facility] kc6 11:18 Acuity: CHRISTOPHER 3 kc6 Historical: - Allergies: 11:20 Codeine; kc6 11:20 Phenergan; kc6 11:20 Tape; kc6 - PMHx: 11:20 Diabetes - IDDM; Dialysis; Hypercholesterolemia; Hypertension; Hypothyroidism; kc6 Myocardial infarction; - PSHx: 11:20 2 heart stents; back; section; Coronary artery bypass graft; knee; neck; kc6 - Immunization history:: Adult Immunizations up to date. - Social history:: Smoking status: Patient denies any tobacco usage or history of. Screenin:[facility] ED Fall Risk Assessment (Adult) History of falling in the last 3 months, kd3 including since admission Yes- single mechanical fall (1 pt) Confusion or Disorientation No (0 pts) Intoxicated or Sedated No (0 pts) Impaired Gait Yes (1 pt) Mobility Assist Device Used No (0 pt) Altered Elimination No (0 pt) Score/Fall Risk Level 0 - 2 = Low Risk Oriented to surroundings. Abuse screen: Denies threats or abuse. Denies injuries from another. Nutritional screening: No deficits noted. Tuberculosis screening: No symptoms or risk factors identified. Assessment: 11:18 Reassessment: please see triage. kc6 12:18 Reassessment: Patient appears in no apparent distress at this time. No changes from [facility] previously documented assessment. Patient and/or family updated on plan of care and expected duration. Pain level reassessed. Patient is alert, oriented x 3, equal unlabored respirations, skin warm/dry/pink. 13:27 Reassessment: Patient appears in no apparent distress at this time. No changes from [facility] previously documented assessment. Patient and/or family updated on plan of care and expected duration. Pain level reassessed. Patient is alert, oriented x 3, equal unlabored respirations, skin warm/dry/pink. 14:27 Reassessment: Patient appears in no apparent distress at this time. No changes from [facility] previously documented assessment. Patient and/or family updated on plan of care and expected duration. Pain level reassessed. Patient is alert, oriented x 3, equal unlabored respirations, skin warm/dry/pink. Vital Signs: 11:18 BP 126 / 49; Pulse 68; Resp 21 S; Temp 98.1(O); Pulse Ox 88% on R/A; Weight 90.72 kg kc6 (R); Height 5 ft. 6 in. (R); 11:20 Pulse Ox 97% on 2.5 lpm NC; kc6 12:21 BP 124 / 47; Pulse 60; Resp 14 S; Pulse Ox 100% on R/A; kc6 13:27 BP 124 / 41; Pulse 62; Resp 18 S; Pulse Ox 100% on 2 lpm NC; kc6 14:45 BP 116 / 48; Pulse 71; Resp 19; Pulse Ox 100% on 2 lpm NC; kd3 11:18 Body Mass Index 32.28 (90.72 kg, 167.64 cm) [facility] ED Course: 11:11 EKG done, by ED staff, reviewed by Sukhi Uribe MD. hb 11:18 Patient arrived in ED. [facility] 11:20 Triage completed. [facility] 11:20 Sukhi Uribe MD is Attending Physician. beth 11:20 Arm band placed on. kc6 11:20 Patient has correct armband on for positive identification. Placed in gown. Bed in low kc6 position. Call light in reach. Side rails up X2. Client placed on continuous cardiac and pulse oximetry monitoring. NIBP monitoring applied. staple cutter on. 11:38 Shauna Cavanaugh RN is Primary Nurse. kc6 11:38 Missed attempt(s): 22 gauge in right hand. Oxygen administration via nasal cannula \T\ kc6 2L/min. 11:50 Inserted saline lock: 20 gauge in right upper arm, using aseptic technique. ,using nj1 aseptic technique. Ultrasound guided. Catheter tip well visualized within vasculature during placement. Blood collected. 13:24 XRAY Chest (1 view) In Process Unspecified. EDMS 13:24 Foot Left 3 View XRAY In Process Unspecified. EDMS 13:24 Foot Right 3 View XRAY In Process Unspecified. EDMS 13:24 Hand Left 3 View XRAY In Process Unspecified. EDMS 13:34 attempted to initiate a transfer with the [facility] Transfer center placed on eb automatic hold. 13:46 initiated a transfer with Jodie from the [facility]. eb 13:57 administrative approval given by Jodie Smith Rn/ patient has been accepted to [facility] ER/ Dr. Ernesto Hook has accepted the patient in transfer/ report to be called to [phone]. 14:54 No provider procedures requiring assistance completed. Patient transferred, IV remains kc6 in place. Administered Medications: 12:20 Drug: NS 0.9% IV 1000 ml IV at 75 ml/hr continuous Route: IV; Rate: 75 ml/hr; Site: kc6 right antecubital; 13:33 Follow up: Response: No adverse reaction; IV Status: Completed infusion; IV Intake: kc6 1000ml 12:20 Drug: Piperacillin-Tazobactam IVPB 2.25 grams IVPB once over 60 mins; (mix in NS 100 kc6 mL) Route: IVPB; Infused Over: 60 mins; Site: right antecubital; 13:33 Follow up: Response: No adverse reaction; IV Status: Completed infusion; IV Intake: kc6 100ml 13:44 Drug: Silver SulfADIAZINE Topical Cream 1 % 1 application Topical once Route: Topical; kc6 Site: affected area; 14:53 Follow up: Response: No adverse reaction kc6 13:44 Drug: vancoMYCIN IVPB 1 grams IVPB once over 2 hrs Route: IVPB; Infused Over: 2 hrs; kc6 Site: right antecubital; 14:53 Follow up: Response: No adverse reaction; IV Status: Infusion continued upon transfer; kc6 IV Intake: 250ml Medication: 14:54 VIS not applicable for this client. kc6 Intake: 13:33 IV: 100ml; Total: 100ml. kc6 13:33 IV: 1000ml; Total: 1100ml. kc6 14:53 IV: 250ml; Total: 1350ml. kc6 Outcome: 13:51 ER care complete, transfer ordered by MD. campos 14:54 Transferred by ground EMS to [facility], Transfer form completed. kc6 14:54 Condition: good 14:54 Instructed on the need for transfer, 14:54 Patient left the ED. kc6 Signatures: Dispatcher [employer] EDMS Sukhi Uribe MD MD cha Baxter, Heather, RN RN Angeles Snow Kyli RN RN kd3 Shauna Cavanaugh RN RN kc6 Keiry Antoine RN RN nj1
--- NOTE | 2023-09-14 13:51 | EDPHYS ---
Physician Documentation [facility] Name: Meseret Gallego Age: 68 yrs Sex: Female : 1955 Arrival Date: 09/14/2023 Time: 11:08 Bed 16 Private MD: ED Physician Sukhi Uribe HPI: 09/13 13:34 This 68 yrs old Female presents to ER via EMS with complaints of General beth Weakness. 13:34 The patient or guardian reports decreased range of motion, pain, swelling, tenderness. beth The complaints affect the left hand diffusely. Context: The problem was sustained at home, resulted from an unknown cause. DIALYSIS PT , WITH 2 WEEK INJURY LEFT INDEX FINGER, NECROSIS, GAS IN TISSUES, CELLULITS UP THE LEFT FOREARM. The patient presents with a contusion, pain, a rash, TIC TOE TIPS, CELLULITIS. The complaints affect the lateral aspect of left hand, medial aspect of left hand, dorsal aspect of middle phalanx of left index finger, dorsal aspect of proximal phalanx of left index finger, palmar aspect of distal phalanx of left index finger, palmar aspect of middle phalanx of left index finger, palmar aspect of proximal phalanx of left index finger, palm of left hand and left index fingernail. Modifying factors: The symptoms are alleviated by nothing, the symptoms are aggravated by nothing. 13:37 Onset: The symptoms/episode began/occurred 2 week(s) ago. Associated signs and beth symptoms: Pertinent positives: fever, swelling, warmth, weakness. The patient reports fever, that was measured at 101 degrees Fahrenheit. Modifying factors: The symptoms are alleviated by nothing, elevation, the symptoms are aggravated by movement, dependent position. Associated signs and symptoms: Pertinent positives: fever, nausea. Severity of symptoms: At their worst the symptoms were moderate, severe, in the emergency department the symptoms are unchanged. Modifying factors: there are no obvious modifying factors. Severity of symptoms: At their worst the symptoms were moderate in the emergency department the symptoms are worse moderately. Historical: - Allergies: 11:20 Codeine; kc6 11:20 Phenergan; kc6 11:20 Tape; kc6 - PMHx: 11:20 Diabetes - IDDM; Dialysis; Hypercholesterolemia; Hypertension; Hypothyroidism; kc6 Myocardial infarction; - PSHx: 11:20 2 heart stents; back; section; Coronary artery bypass graft; knee; neck; kc6 - Immunization history:: Adult Immunizations up to date. - Social history:: Smoking status: Patient denies any tobacco usage or history of. ROS: 13:38 Eyes: Negative for injury, pain, redness, and discharge, ENT: Negative for injury, beth pain, and discharge, Neck: Negative for injury, pain, and swelling, Cardiovascular: Negative for chest pain, palpitations, and edema, Abdomen/GI: Negative for abdominal pain, nausea, vomiting, diarrhea, and constipation, Back: Negative for injury and pain, : Negative for injury, bleeding, discharge, and swelling, Skin: Negative for injury, rash, and discoloration, Neuro: Negative for headache, weakness, numbness, tingling, and seizure, Psych: Negative for depression, anxiety, suicide ideation, homicidal ideation, and hallucinations, Allergy/Immunology: Negative for hives, rash, and allergies, Endocrine: Negative for neck swelling, polydipsia, polyuria, polyphagia, and marked weight changes, Hematologic/Lymphatic: Negative for swollen nodes, abnormal bleeding, and unusual bruising, 13:38 Constitutional: Positive for chills, fatigue, fever, malaise, 13:38 Respiratory: Positive for cough, shortness of breath, 13:38 MS/extremity: Positive for decreased range of motion, erythema, pain, swelling, tenderness, of the left hand, right foot, left foot and left arm, Exam: 13:38 Constitutional: This is a well developed, well nourished patient who is awake, alert, beth and in no acute distress. Head/Face: Normocephalic, atraumatic. Eyes: Pupils equal round and reactive to light, extra-ocular motions intact. Lids and lashes normal. Conjunctiva and sclera are non-icteric and not injected. Cornea within normal limits. Periorbital areas with no swelling, redness, or edema. ENT: Nares patent. No nasal discharge, no septal abnormalities noted. Tympanic membranes are normal and external auditory canals are clear. Oropharynx with no redness, swelling, or masses, exudates, or evidence of obstruction, uvula midline. Mucous membranes moist. Neck: Trachea midline, no thyromegaly or masses palpated, and no cervical lymphadenopathy. Supple, full range of motion without nuchal rigidity, or vertebral point tenderness. No Meningismus. Chest/axilla: Normal chest wall appearance and motion. Nontender with no deformity. No lesions are appreciated. Cardiovascular: Regular rate and rhythm with a normal S1 and S2. No gallops, murmurs, or rubs. Normal PMI, no JVD. No pulse deficits. Respiratory: Lungs have equal breath sounds bilaterally, clear to auscultation and percussion. No rales, rhonchi or wheezes noted. No increased work of breathing, no retractions or nasal flaring. Abdomen/GI: Soft, non-tender, with normal bowel sounds. No distension or tympany. No guarding or rebound. No evidence of tenderness throughout. Back: No spinal tenderness. No costovertebral tenderness. Full range of motion. Female : Normal external genitalia. Neuro: Awake and alert, GCS 15, oriented to person, place, time, and situation. Cranial nerves II-XII grossly intact. Motor strength 5/5 in all extremities. Sensory grossly intact. Cerebellar exam normal. Normal gait. Psych: Awake, alert, with orientation to person, place and time. Behavior, mood, and affect are within normal limits. 13:38 Skin: Appearance: Color: pale, Temperature: normal temperature, Moisture: normal moisture, abscess, not appreciated, cellulitis, that is moderate, on the left hand and left arm, induration, that is mild is noted, that is moderate is noted, injury, avulsion(s), A moderate sized of the dorsal aspect of distal phalanx of left index finger, palmar aspect of distal phalanx of left index finger and left index fingernail, 13:51 ECG was reviewed by the Attending Physician. [facility] Vital Signs: 11:18 BP 126 / 49; Pulse 68; Resp 21 S; Temp 98.1(O); Pulse Ox 88% on R/A; Weight 90.72 kg kc6 (R); Height 5 ft. 6 in. (R); 11:20 Pulse Ox 97% on 2.5 lpm NC; kc6 12:21 BP 124 / 47; Pulse 60; Resp 14 S; Pulse Ox 100% on R/A; kc6 13:27 BP 124 / 41; Pulse 62; Resp 18 S; Pulse Ox 100% on 2 lpm NC; kc6 14:45 BP 116 / 48; Pulse 71; Resp 19; Pulse Ox 100% on 2 lpm NC; kd3 11:18 Body Mass Index 32.28 (90.72 kg, 167.64 cm) kc6 MDM: 11:20 Patient medically screened. [facility] 13:40 Differential diagnosis: open fracture, contusion, tendonitis, fracture, arthritis, beth gout, cellulitis, bacterial infection, URI, pneumonia UTI, gastroenteritis. Differential Diagnosis altered mental status, sepsis. Data reviewed: vital signs, nurses notes, EMS record, lab test result(s), EKG, radiologic studies, plain films. Consideration of Admission/Observation Escalation of care including admission/observation considered. I considered the following discharge prescriptions or medication management in the emergency department Medications were administered in the Emergency Department. See MAR. Independent interpretation of the following test(s) in the Emergency Department EKG: See my EKG interpretation above. Test considered but Not performed: Ultrasound NO LEFT ARM DOPPLER. Care significantly affected by the following chronic conditions: Diabetes, Hypertension, Congestive Heart Failure, Obesity, Chronic Kidney Disease, CAD. 09/13 11:22 Order name: Basic Metabolic Panel; Complete Time: 13: [facility] 09/13 11:22 Order name: CBC with Diff; Complete Time: 13: [facility] 09/13 11:22 Order name: LFT's; Complete Time: 13: beth 09/13 11:22 Order name: Magnesium; Complete Time: 13: [facility] 09/13 11:22 Order name: NT PRO-BNP; Complete Time: 13: beth 09/13 11:22 Order name: PT-INR; Complete Time: 13:07 beth 09/13 11:22 Order name: Troponin HS; Complete Time: 13: [facility] 09/13 11:22 Order name: Lipase; Complete Time: 13:07 [facility] 09/13 11:22 Order name: Blood Culture Adult (2) [facility] 09/13 11:22 Order name: Lactate w/ 2H reflex if indic.; Complete Time: 13: [facility] 09/13 13:03 Order name: CBC Smear Scan; Complete Time: 13: [facility]AR 09/13 11:22 Order name: XRAY Chest (1 view) 09/13 11:22 Order name: Foot Left 3 View XRAY [facility] 09/13 11:22 Order name: Foot Right 3 View XRAY [facility] 09/13 11:22 Order name: Hand Left 3 View XRAY [facility] 09/13 11:22 Order name: EKG; Complete Time: : [facility] 09/13 11:22 Order name: Cardiac monitoring; Complete Time: [facility] 09/13 11:22 Order name: EKG - Nurse/Tech; Complete Time: 11: [facility] 09/13 11:22 Order name: IV Saline Lock; Complete Time: 12: [facility] 09/13 11:22 Order name: Labs collected and sent; Complete Time: 12: [facility] 09/13 11:22 Order name: O2 Per Protocol; Complete Time: : [facility] 09/13 11:22 Order name: O2 Sat Monitoring; Complete Time: : [facility] 09/13 13:28 Order name: Wound dressing; Complete Time: 13:29 [facility] EC:51 Rate is 61 beats/min. Rhythm is regular. QRS [place]anger is Normal. AL interval is normal. QRS beth interval is normal. QT interval is normal. No Q waves. T waves are Normal. No ST changes noted. Clinical impression: NSR w/ Non-specific ST/T Changes and No evidence of ischemia. Interpreted by me. Reviewed by me. Administered Medications: 12:20 Drug: NS 0.9% IV 1000 ml IV at 75 ml/hr continuous Route: IV; Rate: 75 ml/hr; Site: [facility] right antecubital; 13:33 Follow up: Response: No adverse reaction; IV Status: Completed infusion; IV Intake: kc6 1000ml 12:20 Drug: Piperacillin-Tazobactam IVPB 2.25 grams IVPB once over 60 mins; (mix in NS 100 kc6 mL) Route: IVPB; Infused Over: 60 mins; Site: right antecubital; 13:33 Follow up: Response: No adverse reaction; IV Status: Completed infusion; IV Intake: kc6 100ml 13:44 Drug: Silver SulfADIAZINE Topical Cream 1 % 1 application Topical once Route: Topical; [facility] Site: affected area; 14:53 Follow up: Response: No adverse reaction [facility] 13:44 Drug: vancoMYCIN IVPB 1 grams IVPB once over 2 hrs Route: IVPB; Infused Over: 2 hrs; [facility] Site: right antecubital; 14:53 Follow up: Response: No adverse reaction; IV Status: Infusion continued upon transfer; kc IV Intake: 250ml Disposition Summary: 09/14/23 13:51 Transfer Ordered Notes: Transfer Location: [facility] Reason: Higher level of care beth Condition: Serious beth Problem: new beth Symptoms: have improved beth Accepting Physician: RADHA COMBS(09/14/23 14:54) kc6 Diagnosis - Dependence on renal dialysis beth - Anemia, unspecified beth - Anemia in chronic kidney disease beth - Necrotizing fasciitis beth - Other synovitis and tenosynovitis, left hand - LRFT HAND AND FOREARM beth - Elevated white blood cell count beth Forms: - Medication Reconciliation Form beth - SBAR form beth Signatures: Dispatcher [employer] EDSukhi Mitchell MD MD cha Campbell, Kaitlyn, RN RN kc6 Corrections: (The following items were deleted from the chart) 14:54 13:51 TO LAURYN pedroza
[2023-09-14 16:06] VITALS: BP 116/48; TEMP 98.1; O2SAT 100
== END ==
LOC: ER 11:08
DX: E11.22 Type 2 diabetes mellitus with diabetic chronic kidney disease (principal); I12.0 Hypertensive chronic kidney disease with stage 5 chronic kidney disease or end stage renal disease; N18.6 End stage renal disease; Z99.2 Dependence on renal dialysis; D63.1 Anemia in chronic kidney disease; M72.6 Necrotizing fasciitis; M65.842 Other synovitis and tenosynovitis, left hand; D72.829 Elevated white blood cell count, unspecified; Z95.1 Presence of aortocoronary bypass graft; Z95.818 Presence of other cardiac implants and grafts; Z88.5 Allergy status to narcotic agent; Z88.8 Allergy status to other drugs, medicaments and biological substances; Z91.048 Other nonmedicinal substance allergy status
CPT/HCPCS: 96365; 96367; 87040 ×2; 85025; 80048; 36415; 83735; 85610; 80076; 83605; 84484; 83690; 83880; 71045; 73130; 73630 ×2; 99285; J2543; J7050; J7030

== ENCOUNTER 2023-12-19 09:49 | Inpatient (IN) | payer OTHER ==
--- NOTE | 2023-12-19 11:03 | RAD REPORT ---
EXAM DESCRIPTION: RAD - Chest Single View - 12/19/2023 10:27 am CLINICAL HISTORY: pre-op Chest pain. COMPARISON: Chest Single View dated 09/14/2023; Chest Single View dated 08/08/2023; Chest Single View d ated 07/13/2023; Chest Single View dated 06/20/2023 FINDINGS: Portable technique limits examination quality. Mild interstitial pulmonary edema suspected. The heart is moderately enlarged. Sternotomy wires.Right -sided venous catheter has tip in the SVC. IMPRESSION: Mild CHF pattern.
--- NOTE | 2023-12-19 11:04 | ER ---
Nurse's Notes [facility] Name: Meseret Gallego Age: 68 yrs Sex: Female : 1955 Arrival Date: 12/19/2023 Time: 09:49 Bed 13 Private MD: Diagnosis: Gangrene, not elsewhere classified;Osteomyelitis, unspecified Presentation: 12/18 10:04 Chief complaint: Patient states: "Sent for left great toe amputation by Dr. Peterson". mb9 Coronavirus screen: Vaccine status: Patient reports receiving the 2nd dose of the covid vaccine. Ebola Screen: No symptoms or risks identified at this time. Initial Sepsis Screen: Does the patient meet any 2 criteria? HR > 90 bpm. Does the patient have a suspected source of infection? No. Patient's initial sepsis screen is negative. Risk Assessment: Do you want to hurt yourself or someone else? Patient reports no desire to harm self or others. Onset of symptoms was December 19, 2023. 10:04 Method Of Arrival: Wheelchair mb9 10:04 Acuity: CHRISTOPHER 3 mb9 Historical: - Allergies: 10:06 Codeine; mb9 10:06 Phenergan; mb9 10:06 Tape; mb9 - PMHx: 10:06 Diabetes - IDDM; Hypercholesterolemia; Myocardial infarction; Hypothyroidism; mb9 Hypertension; Dialysis; - PSHx: 10:06 2 heart stents; back; section; Coronary artery bypass graft; knee; neck; mb9 pacemaker (October 2023); - Immunization history:: Adult Immunizations up to date. - Infectious Disease History:: Denies. - Social history:: Smoking status: Patient denies any tobacco usage or history of. - Family history:: not pertinent. - Hospitalizations: : No recent hospitalization is reported. Screenin:35 [facility] ED Fall Risk Assessment (Adult) History of falling in the last 3 months, nj1 including since admission Yes- fall prone (multiple falls) (3 pts) Confusion or Disorientation No (0 pts) Intoxicated or Sedated No (0 pts) Impaired Gait Yes (1 pt) Mobility Assist Device Used Yes (1 pt) Altered Elimination No (0 pt) Score/Fall Risk Level 3 or more points = High Risk Oriented to surroundings, Maintained a safe environment, Assessed \\T\\ reinforced patient's understanding of fall precautions, Hourly rounding (assess needs \\T\\ fall precautionary measures) done, Used ambulatory aids as needed (educated on \\T\\ assisted with), Remained w/in arm's length of patient and in sight while toileting, Utilized family, sitter, or virtual filament maker as indicated. Abuse screen: Denies threats or abuse. Denies injuries from another. Nutritional screening: No deficits noted. Tuberculosis screening: No symptoms or risk factors identified. Assessment: 10:31 General: Appears uncomfortable, Behavior is appropriate for age. Pain: Complains of nj1 pain in back and neck. Neuro: Level of Consciousness is awake, alert, obeys commands, Oriented to person, place, situation. Cardiovascular: Patient's skin is warm and dry. Respiratory: Airway is patent Respiratory effort is even, unlabored. Derm: Dressings noted to both upper extremities, pt states they are skin tears. Has dressings to lower extremities, had seen Dr Peterson yesterday and instructed to come to ED to get admitted. 10:31 Musculoskeletal: Amputation of left index finger and left middle finger. right partial nj1 index finger and right partial middle finger.. 11:29 Reassessment: Patient appears in no apparent distress at this time. Patient and/or nj1 family updated on plan of care and expected duration. Pain level reassessed. Patient is alert, oriented x 3, equal unlabored respirations, skin warm/dry/pink. 12:29 Reassessment: Patient appears in no apparent distress at this time. Patient and/or nj1 family updated on plan of care and expected duration. Pain level reassessed. Patient is alert, oriented x 3, equal unlabored respirations, skin warm/dry/pink. 12:57 Reassessment: Patient appears in no apparent distress at this time. Patient and/or nj1 family updated on plan of care and expected duration. Pain level reassessed. Patient is alert, oriented x 3, equal unlabored respirations, skin warm/dry/pink. Vital Signs: 10:04 Pulse 103; Resp 18; Temp 98.2(O); Pulse Ox 100% on R/A; Weight 81.65 kg; Height 5 ft. 6 mb9 in. ; 11:29 BP 117 / 107; Pulse 101; Resp 20; Temp 97.5(TE); Pulse Ox 99% ; nj1 12:28 BP 110 / 94; Pulse 103; Resp 18; Pulse Ox 100% on R/A; nj1 12:55 BP 143 / 81; Pulse 103; Resp 20; Temp 97.2(TE); Pulse Ox 98% on R/A; nj1 10:04 Body Mass Index 29.05 (81.65 kg, 167.64 cm) 9 ED Course: 09:54 Patient arrived in ED. mg5 09:58 Marcel Sykes MD is Attending Physician. rn 10:03 Arm band placed on. mb9 10:05 Triage completed. mb9 10:10 Keiry Antoine, RN is Primary Nurse. nj1 10:29 XRAY Chest (1 view) In Process Unspecified. EDMS 10:29 XRAY Foot LEFT 3 View In Process Unspecified. EDMS 10:36 Patient has correct armband on for positive identification. Bed in low position. Call [facility] light in reach. Side rails up X 1. Provided Education on: call light, fall precautions. 11:03 Sudhakar Mendosa is Hospitalizing Provider. rn 11:18 Inserted saline lock: 20 gauge in right forearm, using aseptic technique. ,using [facility] aseptic technique. By PERRI Hickman. 11:18 Lab(s) recollected, by wa, sent to lab. [facility] 12:54 No provider procedures requiring assistance completed. Patient admitted, IV remains in [facility] place. Administered Medications: No medications were administered Outcome: 11:03 Decision to Hospitalize by Provider. rn 12:54 Admitted to Tele accompanied by tech, via wheelchair, room 406, [facility] 12:54 Condition: stable 12:54 Instructed on the need for admit, 13:41 Patient left the ED. [facility] Signatures: Dispatcher [employer] EDMS Marcel Sykes MD MD rn Breneman, Mary Beth RN PERRI Keiry Rosales, PERRI RAYO [facility] Tracy Suarez [facility] Kathy Padron mg5 Corrections: (The following items were deleted from the chart) 11:31 11:29 BP 117 / 107; Pulse 101bpm; Resp 18bpm; Pulse Ox 99%; [facility] nj 11:33 10:31 Derm: Dressings noted to both upper extremities, pt states they are skin tears. [facility] Has dressings to lower extremities, had seen Dr Kovacev yesterday and instructed to come to ED to get admitted. nj1 11:34 11:29 BP 117 / 107; Pulse 101bpm; Resp 20bpm; Pulse Ox 99%; nj1 nj1 12:57 12:55 BP 110 / 94; Pulse 103bpm; Resp 20bpm; Pulse Ox 98% RA; Temp 97.2F Temporal; nj1 nj1
--- NOTE | 2023-12-19 11:04 | RAD REPORT ---
EXAM DESCRIPTION: RAD - Foot Left 3 View - 12/19/2023 10:27 am CLINICAL HISTORY: eval for osteo Pain and swelling COMPARISON: Foot Left 3 View dated 09/14/2023; Foot Left 2 View dated 09/18/2022 FINDINGS: Bony destructive changes noted involving the proximal phalanx of the great toe distally wi th adjacent soft tissue ulceration. This likely indicates osteomyelitis. Prominent vascular calcifica tions. Large posterior and plantar calcaneal spurs.
--- NOTE | 2023-12-19 11:04 | EDPHYS ---
Physician Documentation [facility] Name: Meseret Gallego Age: 68 yrs Sex: Female : 1955 Arrival Date: 12/19/2023 Time: 09:49 Bed 13 Private MD: ED Physician Marcel Sykes HPI: 12/18 11:00 This 68 yrs old Female presents to ER via Wheelchair with complaints of Foot Injury. rn 11:00 This 68 yrs old Female presents to ER via Wheelchair with complaints of Foot pain. rn 11:00 The patient presents with pain. The complaints affect the left foot. Onset: The rn symptoms/episode began/occurred at an unknown time. Modifying factors: The symptoms are alleviated by nothing, the symptoms are aggravated by nothing. The patient has experienced similar episodes in the past, chronically. Patient reports sent here by Dr. Peterson for cardiac clearance. Told needs amputation of left toes because outpatient treatment is not working. Increase in gangrene to left great toe. Patient has just had a CABG and pacemaker placement in the last year so needs cardiac clearance.. Historical: - Allergies: 10:06 Codeine; mb9 10:06 Phenergan; mb9 10:06 Tape; mb9 - PMHx: 10:06 Diabetes - IDDM; Hypercholesterolemia; Myocardial infarction; Hypothyroidism; mb9 Hypertension; Dialysis; - PSHx: 10:06 2 heart stents; back; section; Coronary artery bypass graft; knee; neck; mb9 pacemaker (October 2023); - Immunization history:: Adult Immunizations up to date. - Infectious Disease History:: Denies. - Social history:: Smoking status: Patient denies any tobacco usage or history of. - Family history:: not pertinent. - Hospitalizations: : No recent hospitalization is reported. ROS: 11:00 Constitutional: Negative for fever, chills, and weight loss, Cardiovascular: Negative rn for chest pain, palpitations, and edema, Respiratory: Negative for shortness of breath, cough, wheezing, and pleuritic chest pain, Abdomen/GI: Negative for abdominal pain, nausea, vomiting, diarrhea, and constipation, MS/Extremity: Positive for worsening discoloration and gangrene to the left great toe Exam: 11:00 Constitutional: This is a well developed, well nourished patient who is awake, alert, rn and in no acute distress. Cardiovascular: Tachycardic, regular Respiratory: No increased work of breathing, no retractions or nasal flaring. MS/ Extremity: Dry gangrene of the left great toe. No open wound. No drainage. No evidence of wet gangrene Neuro: Awake and alert, GCS 15 Vital Signs: 10:04 Pulse 103; Resp 18; Temp 98.2(O); Pulse Ox 100% on R/A; Weight 81.65 kg; Height 5 ft. 6 mb9 in. ; 11:29 BP 117 / 107; Pulse 101; Resp 20; Temp 97.5(TE); Pulse Ox 99% ; nj1 12:28 BP 110 / 94; Pulse 103; Resp 18; Pulse Ox 100% on R/A; nj1 12:55 BP 143 / 81; Pulse 103; Resp 20; Temp 97.2(TE); Pulse Ox 98% on R/A; nj1 10:04 Body Mass Index 29.05 (81.65 kg, 167.64 cm) 9 MDM: 09:59 Patient medically screened. rn 11:00 Differential diagnosis: cellulitis, Osteomyelitis, dry gangrene. Data reviewed: vital rn signs, nurses notes, lab test result(s), radiologic studies, plain films, and as a result, I will admit patient. Consideration of Admission/Observation Patient was admitted/placed on observation. Escalation of care including admission/observation considered. Management of patient was discussed with the following: Fishing Game Warden: Case discussed with Dr. Peterson, wants patient admitted to hospitalist service, needs cardiac clearance and plans for amputation tomorrow.. Care significantly affected by the following chronic conditions: Diabetes, Hypertension. Counseling: I had a detailed discussion with the patient and/or guardian regarding the historical points, exam findings, and any diagnostic results supporting the discharge/admit diagnosis, lab results, radiology results, the need for further work-up and treatment in the hospital. 12/18 10:05 Order name: Basic Metabolic Panel; Complete Time: 12:23 rn 12/18 10:05 Order name: CBC with Diff; Complete Time: 12:23 rn 12/18 10:05 Order name: NT PRO-BNP; Complete Time: 12:23 rn 12/18 10:05 Order name: PT-INR; Complete Time: 12:23 rn 12/18 10:05 Order name: Troponin HS; Complete Time: 12:23 rn 12/18 11:29 Order name: CBC Smear Scan; Complete Time: 12:23 EDMS 12/18 12:32 Order name: Urinalysis w/ reflexes EDMS 12/18 12:32 Order name: Basic Metabolic Panel EDMS 12/18 12:32 Order name: Basic Metabolic Panel EDMS 12/18 12:32 Order name: Basic Metabolic Panel EDMS 12/18 12:32 Order name: Basic Metabolic Panel EDMS 12/18 12:32 Order name: Basic Metabolic Panel EDMS 12/18 12:32 Order name: Basic Metabolic Panel EDMS 12/18 12:32 Order name: CBC with Automated Diff EDMS 12/18 12:32 Order name: CBC with Automated Diff EDMS 12/18 12:32 Order name: CBC with Automated Diff EDMS 12/18 12:32 Order name: CBC with Automated Diff EDMS 12/18 12:32 Order name: CBC with Automated Diff EDMS 12/18 12:32 Order name: CBC with Automated Diff EDMS 12/18 12:32 Order name: Magnesium EDMS 12/18 12:32 Order name: Magnesium EDMS 12/18 12:32 Order name: Magnesium EDMS 12/18 12:32 Order name: Magnesium EDMS 12/18 12:32 Order name: Magnesium EDMS 12/18 12:32 Order name: Magnesium EDMS 12/18 12:32 Order name: Phosphorus EDMS 12/18 12:32 Order name: Phosphorus EDMS 12/18 12:32 Order name: Phosphorus EDMS 12/18 12:32 Order name: Phosphorus EDMS 12/18 12:32 Order name: Phosphorus EDMS 12/18 12:32 Order name: Phosphorus EDMS 12/18 10:05 Order name: XRAY Chest (1 view); Complete Time: 11:04 rn 12/18 10:05 Order name: XRAY Foot LEFT 3 View; Complete Time: 11:07 rn 12/18 10:05 Order name: EKG; Complete Time: 10:06 rn 12/18 12:32 Order name: CONS Physician Consult EDMS 12/18 10:05 Order name: Cardiac monitoring; Complete Time: 10:22 rn 12/18 10:05 Order name: EKG - Nurse/Tech; Complete Time: 11:08 rn 12/18 10:05 Order name: IV Saline Lock; Complete Time: 11:08 rn 12/18 10:05 Order name: Labs collected and sent; Complete Time: 11:08 rn 12/18 10:05 Order name: O2 Per Protocol; Complete Time: 10:22 rn 12/18 10:05 Order name: O2 Sat Monitoring; Complete Time: 10:23 rn 12/18 10:51 Order name: Labs - recollect needed: recollect green,blue and lavender top; Complete bd Time: 11:19 Administered Medications: No medications were administered Disposition Summary: 12/19/23 11:03 Hospitalization Ordered Notes: Hospitalization Status: Inpatient Admission rn Provider: Sudhakar Mendosa rn Location: Telemetry/MedSurg (Inpatient) rn Condition: Stable rn Problem: new rn Symptoms: have improved rn Bed/Room Type: Standard rn Room Assignment: 406(12/19/23 12:41) bd Diagnosis - Gangrene, not elsewhere classified rn - Osteomyelitis, unspecified rn Forms: - Medication Reconciliation Form rn - SBAR form rn - Leadership Thank You Letter rn Signatures: Dispatcher [employer] EDMS Jennifer Tabares Roman, MD MD rn Breneman, Adrianne Ann RN RN mb9 Corrections: (The following items were deleted from the chart) 10:06 10:06 BASIC METABOLIC PANEL+C.LAB.BRZ ordered. EDMS EDMS 10:06 10:06 CBC+H.LAB.BRZ ordered. EDMS EDMS 10:06 10:06 PROBNP+C.LAB.BRZ ordered. EDMS EDMS 10:06 10:06 PROTIME (+INR)+COAG.LAB.BRZ ordered. EDMS EDMS 10:06 10:06 Troponin High Sensitivity+C.LAB.BRZ ordered. EDMS EDMS 10:06 10:06 Foot Left 3 View+RAD.RAD.BRZ ordered. EDMS EDMS 12:41 11:03 rn bd
[2023-12-19 11:24] LABS: Absolute Basophils 0.1 K/uL (0-0.5); Absolute Eosinophils 0.1 K/uL (0-0.5); Absolute Lymphocytes (CBC) 0.4 K/uL (0.7-4.9); Absolute Monocytes 0.4 K/uL (0.1-1.3); Absolute Neutrophil 6.9 K/uL (1.8-8.0); Basophils % 1.3 % (0-1.3); Eosinophils % 1.2 % (0-4.4); Hematocrit 30.3 % (36.0-45.0); Hemoglobin 9.4 g/dL (12.0-15.0); Lymphocytes % 5.5 % (15.3-44.8); MCH 28.5 pg (27.0-35.0); MCHC 31.1 g/dL (32.0-36.0); MCV 91.6 fL (80-100); Monocytes % 5.5 % (3.3-12.3); Neutrophils % 86.5 % (41.7-73.7); Platelets 140 thou/uL (152-406); Red Cell Distribution Width 17.2 % (12.1-15.2)
[2023-12-19 11:28] LABS: PT Prothrombin Time 13.8 SECONDS (9.5-12.5); Protime INR 1.26
--- NOTE | 2023-12-19 11:49 | P.HP ---
Certification for Inpatient Patient admitted to: Inpatient With expected LOS: >2 Midnights Patient will require the following post-hospital care: None Practitioner: I am a practitioner with admitting privileges, knowledge of patient current condition, hospital course, and medical plan of care. Services: Services provided to patient in accordance with Admission requirements found in Title 42 Section 412.3 of the Code of Federal Regulations Patient History Date of Service: 12/19/23 Reason for admission: Left lower extremity amputation History of Present Illness: Meseret Gallego is a 68 year old female with Pmhx of Diabetes mellitusIDDM, hypercholesterolemia, myocardial infarction (with 2 stents), pacemaker present hypothyroidism, hypertension, dialysis who presents to the ED with chief complaint of left foot pain. Left foot x-ray showing bony destructive changes to the proximal phalanx likely indicating osteomyelitis." Dr Peterson consulted and plans for lower extremity amputation today after cardiology clearance. Initial vitalBP 117 / 107; Pulse 101; Resp 20; Temp 97.5(TE); Pulse Ox 99% Jean evaluation BNP greater than 175,000, BUN/creatinine 37/3.67, potassium 3.1. Chest x-ray reports "Mild interstitial pulmonary edema suspected. The heart is moderately enlarged. Sternotomy wires. Rightsided venous catheter has tip in the SVC. IMPRESSION: Mild CHF pattern." Left foot x-ray report "Bony destructive changes noted involving the proximal phalanx of the great toe distally with adjacent soft tissue ulceration. This likely indicates osteomyelitis. Prominent vascular calcifications. Large posterior and plantar calcaneal spurs." Meseret will be admitted to hospitalist service for further evaluation and treatment. Dr. Peterson and Dr. Bernabe consulted. Allergies codeine Allergy (Intermediate, Verified 08/04/22 13:31) Itching promethazine [From Phenergan] Allergy (Intermediate, Verified 08/04/22 13:31) Itching adhesive tape Adverse Reaction (Verified 08/04/22 13:31) Itching/Hives/Rash Home Medications: Amiodarone HCl [Cordarone*] 200 mg PO DAILY 06/22/23 Apixaban [Eliquis *] 2.5 mg PO BID 06/22/23 Aspirin [Aspirin EC 81 MG] 81 mg PO DAILY 06/22/23 Atorvastatin Calcium [Lipitor] 40 mg PO BEDTIME 06/22/23 Bupropion HCl [Wellbutrin Sr] 150 mg PO Q12HR 06/22/23 Insulin Glargine,Hum.rec.anlog [Insulin Glargine] 5 units SQ BEDTIME 06/22/23 Levothyroxine [Synthroid*] 125 mcg PO DAILY 06/22/23 Loratadine 10 mg PO DAILY 06/22/23 Metoprolol Succinate 25 mg PO DAILY 06/22/23 Pantoprazole [Protonix Tab*] 40 mg PO DAILY 06/22/23 Polyethylene Glycol 8000 [Polyethylene Glycol] 17 g PO DAILY PRN 06/22/23 Sacubitril/Valsartan [Entresto 24 mg-26 mg Tablet] 0.5 tab PO BID 06/22/23 Acetaminophen 325 mg PO Q4HR PRN 08/09/23 Ascorbic Acid 500 mg PO BID 08/09/23 Ferrous Sulfate 325 mg PO DAILY 08/09/23 Hydrocodone Bit/Acetaminophen [Hydrocodon-Acetaminophen 5-325] 1 tab PO PRN PRN 08/09/23 Insulin Lispro [Humalog] See Protocol SQ BEDTIME 08/09/23 Loperamide HCl [Imodium A-D] 2 mg PO 08/09/23 Melatonin 5 mg PO BEDTIME PRN PRN 08/09/23 Linezolid 600 mg PO BID 7 Days #14 tab 08/11/23 Silver Sulfadiazine Crm [Silvadene*] 1 appl TOP DAILY 14 Days #1 tube 08/11/23 - Past Medical/Surgical History Diabetic: Yes -: IDDM -: Hypertension -: Hypothyroidism -: ESRD HD MWF -: hyperlipidemia -: depression -: Paralyzed Stomach -: Neuropathy -: CAD with 2 stents -: Back fusion -: bilateral total knee replacements -: bilateral carpal tunnel sx -: c section -: thyroidectomy -: neck fusion -: PD Cath then removed -: Cholecystectomy Psychosocial/ Personal History: Patient lives at [facility]. - Family History Mother -: Heart disease, Hypertension, Lung disease, Cancer Notes: breast ca Father -: Heart disease, Hypertension, Other (see notes) Notes: Alzheimer's - Social History Alcohol use: No CD- Drugs: No Caffeine use: Yes Review of Systems Musculoskeletal: Other (left lower extremity pain) Physical Examination - Physical Exam General: Alert, Oriented x3 HEENT: Atraumatic, Normocephalic Neck: Supple, 2+ carotid pulse no bruit, JVD not distended Respiratory: Clear to auscultation bilaterally, Normal air movement Cardiovascular: Normal pulses, Regular rate/rhythm, Normal S1 S2 Capillary refill: <2 Seconds Gastrointestinal: Normal bowel sounds, Soft and benign Musculoskeletal: No swelling, Other (bilateral lower extremities with SUJIT bandage) Integumentary: Skin breakdown (multiple) Neurological: Normal speech, Normal tone - Studies Laboratory Data (last 24 hrs) 12/19/23 12/19/23 11:13 11:13 WBC 8.00 Hgb 9.4 L Hct 30.3 L Plt Count 140 L PT 13.8 H INR 1.26 Assessment and Plan - Plan Assessment and plan Left lower extremity gangrenous -Dr. Peterson consulted, likely surgery in the a.m. -Cardiac clearance by Dr. Montelongo cardiac risk for surgery -Cefepime twice daily -Wound care CAD Atrial fibrillation, pacemaker NSTEMI secondary to gangrene of left lower extremity -Troponin 59.8, serial pending -cardiology consulted History of hypertension/HLD History hypothyroidism History of depression History of neuropathy -Continue home medications History of end-stage renal disease -Dialysis Sunday -Continue home medication -Dr. Folres consulted History of diabetes mellitus -Accu-Chek with sliding scale insulin -Serum glucose 112 DVT PPx, due to surgery no chemical use at this time, due to PAD no SCDs at this time Full code LOS 2 to 3 days Discharge Plan: Home Plan to discharge in: 72 Hours - Advance Directives Does patient have a Living Will: No Does patient have a Durable POA for Healthcare: No
[2023-12-19 11:57] LABS: Anion Gap 13.1 mEq/L (5.0-15.0); BUN Blood Urea Nitrogen 37 mg/dL (7-18); Bicarbonate 23 mEq/L (21-32); Glomerular Filtration Rate 13 ml/min (=/>90); Glucose Level 112 mg/dL (74-106); Potassium 3.1 mEq/L (3.5-5.1); Sodium Level 138 mEq/L (136-145)
[2023-12-19 11:58] LABS: NT PRO-BNP > 175000 pg/mL (<125)
[2023-12-19 11:59] LABS: Troponin High Sensitivity 59.8 pg/mL (<58.9)
[2023-12-19 12:12] LABS: Blood Morphology Comment NOT SEEN (NOT SEEN); Platelet Estimate ADEQ; White Blood Cell Scan OK (OK)
[2023-12-19 17:04] VITALS: BMI 29.0
--- NOTE | 2023-12-19 17:10 | P.CNS ---
Date of Consult: 12/19/23 Chief Complaint: Left lower extremity amputation History of Present Illness: Patient with PMH of CAD s/p multiple PCIs in the [facility], also atrial fibrillation s/p pacemaker placement due to pauses, PAD presented with left lower extremity ganagrene, need amputation, patient mention that she got two stents placed in her heart in the [facility] and by the time they were placing the 3rd one on the right side that they saw plaque in the old stent and that she is not candidate for more intervention she ended up getting a pacemaker, she denies having active chest pain, no palpitations, no dizzy spells, no syncope, report chronic STEELE. Allergies codeine Allergy (Intermediate, Verified 08/04/22 13:31) Itching promethazine [From Phenergan] Allergy (Intermediate, Verified 08/04/22 13:31) Itching adhesive tape Adverse Reaction (Verified 08/04/22 13:31) Itching/Hives/Rash Home Medications: Amiodarone HCl [Cordarone*] 200 mg PO DAILY 06/22/23 Apixaban [Eliquis *] 2.5 mg PO BID 06/22/23 Aspirin [Aspirin EC 81 MG] 81 mg PO DAILY 06/22/23 Atorvastatin Calcium [Lipitor] 40 mg PO BEDTIME 06/22/23 Bupropion HCl [Wellbutrin Sr] 150 mg PO Q12HR 06/22/23 Insulin Glargine,Hum.rec.anlog [Insulin Glargine] 5 units SQ BEDTIME 06/22/23 Levothyroxine [Synthroid*] 125 mcg PO DAILY 06/22/23 Loratadine 10 mg PO DAILY 06/22/23 Metoprolol Succinate 25 mg PO DAILY 06/22/23 Pantoprazole [Protonix Tab*] 40 mg PO DAILY 06/22/23 Polyethylene Glycol 8000 [Polyethylene Glycol] 17 g PO DAILY PRN 06/22/23 Sacubitril/Valsartan [Entresto 24 mg-26 mg Tablet] 0.5 tab PO BID 06/22/23 Acetaminophen 325 mg PO Q4HR PRN 08/09/23 Ascorbic Acid 500 mg PO BID 08/09/23 Ferrous Sulfate 325 mg PO DAILY 08/09/23 Hydrocodone Bit/Acetaminophen [Hydrocodon-Acetaminophen 5-325] 1 tab PO PRN PRN 08/09/23 Insulin Lispro [Humalog] See Protocol SQ BEDTIME 08/09/23 Loperamide HCl [Imodium A-D] 2 mg PO 08/09/23 Melatonin 5 mg PO BEDTIME PRN PRN 08/09/23 Linezolid 600 mg PO BID 7 Days #14 tab 08/11/23 Silver Sulfadiazine Crm [Silvadene*] 1 appl TOP DAILY 14 Days #1 tube 08/11/23 - Past Medical/Surgical History Diabetic: Yes -: IDDM -: Hypertension -: Hypothyroidism -: ESRD HD MWF -: hyperlipidemia -: depression -: Paralyzed Stomach -: Neuropathy -: CAD with 2 stents -: Back fusion -: bilateral total knee replacements -: bilateral carpal tunnel sx -: c section -: thyroidectomy -: neck fusion -: PD Cath then removed -: Cholecystectomy Psychosocial/ Personal History: Patient lives at [facility]. - Family History Mother Medical History: Heart disease, Hypertension, Lung disease, Cancer Notes: breast ca Father Medical History: Heart disease, Hypertension, Other (see notes) Notes: Alzheimer's - Social History Smoking Status: Unknown if ever smoked Alcohol use: No CD- Drugs: No Caffeine use: Yes Place of Residence: [place] Review of Systems 10-point ROS is otherwise unremarkable Physical Examination Temp Pulse Resp BP Pulse Ox 97.2 F 103 H 20 143/81 H 100 12/19/23 13:50 12/19/23 13:50 12/19/23 13:50 12/19/23 13:50 12/19/23 13:00 General: Alert, In no apparent distress HEENT: Atraumatic, PERRLA, Mucous membr. moist/pink, EOMI, Sclerae nonicteric Neck: Supple, 2+ carotid pulse no bruit, No LAD, Without JVD or thyroid abnormality Respiratory: Clear to auscultation bilaterally, Normal air movement Cardiovascular: Regular rate/rhythm, Normal S1 S2 Gastrointestinal: Normal bowel sounds, No tenderness Musculoskeletal: No tenderness Integumentary: No rashes Neurological: Normal gait, Normal speech, Normal tone, Normal affect Lymphatics: No axilla or inguinal lymphadenopathy Laboratory Data (last 24 hrs) 12/19/23 12/19/23 12/19/23 11:13 11:13 11:13 WBC 8.00 Hgb 9.4 L Hct 30.3 L Plt Count 140 L PT 13.8 H INR 1.26 Sodium 138 Potassium 3.1 L BUN 37 H Creatinine 3.67 H Glucose 112 H - Problems (1) Encounter for pre-operative cardiovascular clearance Current Visit: Yes Status: Acute Plan: Patient is intermediate cardiac risk for surgery, patient got complex cardiac history but not having any active cardiac symptoms at this point, recommend to proceed with amputation surgery without any further cardiac intervention at this point. (2) Atrial fibrillation Current Visit: Yes Status: Acute Plan: Patient is in sinus rhythm. Continue Toprol XL 25 mg daily Hold Eliquis and resume once ok with surgeon, no need to bridge. (3) NSTEMI (non-ST elevated myocardial infarction) Current Visit: No Status: Acute Plan: most likely secondary to toe gangrene, continue to trend troponin (4) Coronary artery disease Current Visit: No Status: Chronic Plan: stable, no active chest pain, continue ASA 81 mg daily, continue Toprol XL 25 mg daily. Qualifiers: Coronary Disease-Associated Artery/Lesion type: [place] artery [place] vs. transplanted heart: [place] heart Associated angina: without angina Qualified Code(s): I25.10 - Atherosclerotic heart disease of [place] coronary artery without angina pectoris
[2023-12-19] MEDS: CEFEPIME 1 GM in NA CHLORIDE 0.9% 100 ML IV SCH (18:39)
[2023-12-20] MEDS: HYDROCODONE/APAP 10/325 TAB PO PRN (00:47)
[2023-12-20 06:24] LABS: Absolute Basophils 0.1 K/uL (0-0.5); Absolute Eosinophils 0.1 K/uL (0-0.5); Absolute Lymphocytes (CBC) 0.6 K/uL (0.7-4.9); Absolute Monocytes 0.5 K/uL (0.1-1.3); Absolute Neutrophil 7.2 K/uL (1.8-8.0); Basophils % 1.2 % (0-1.3); Eosinophils % 1.6 % (0-4.4); Hematocrit 30.8 % (36.0-45.0); Hemoglobin 9.8 g/dL (12.0-15.0); Lymphocytes % 6.6 % (15.3-44.8); MCH 29.1 pg (27.0-35.0); MCHC 31.9 g/dL (32.0-36.0); MCV 91.2 fL (80-100); MPV 8.1 fL (7.6-11.3); Monocytes % 5.9 % (3.3-12.3); Neutrophils % 84.7 % (41.7-73.7); Platelets 160 thou/uL (152-406); RBC Red Blood Cell Count 3.38 M/uL (3.86-4.86); Red Cell Distribution Width 17.5 % (12.1-15.2)
[2023-12-20 06:40] LABS: Anion Gap 14.8 mEq/L (5.0-15.0); Phosphorus 4.5 mg/dL (2.5-4.9); Potassium 2.8 mEq/L (3.5-5.1)
--- NOTE | 2023-12-20 07:13 | P.PN ---
Date of Service: 12/20/23 Subjective Awake and sitting up in bed, in very good spirits. awaiting for surgery this AM no new complaints ROS 10 point ROS as noted above, otherwise negative Physical Exam General: Alert and Oriented x3, NAD, conversing well HEENT: Atraumatic, Normocephalic Neck: Supple, 2+ carotid pulse no bruit, JVD not distended Respiratory: Clear to auscultation bilaterally, Normal air movement Cardiovascular: Normal pulses, RRR, Normal S1 S2 Capillary refill: <2 Seconds Gastrointestinal: Normal bowel sounds, Soft and benign on palpation Musculoskeletal: No swelling, Other (bilateral lower extremities with SUJIT bandage, CDI) Integumentary: Skin breakdown (multiple) Neurological: Normal speech, Normal tone Vitals Reviewed Problem list Left lower extremity gangrenous CAD Atrial fibrillation, pacemaker NSTEMI secondary to gangrene of left lower extremity Hypokalemia History of hypertension/HLD History hypothyroidism History of depression History of neuropathy History of end-stage renal disease History of diabetes mellitus Assessment and Plan Left lower extremity gangrenous -Dr. Peterson consulted, likely surgery in the a.m. -Cardiac clearance by Dr. Figueroamediate cardiac risk for surgery -Cefepime twice daily -Wound care CAD Atrial fibrillation, pacemaker NSTEMI secondary to gangrene of left lower extremity -Troponin 59.8/57.8 -cardiology consulted Hypokalemia -K 2.8 -Replaced and recheck History of hypertension/HLD History hypothyroidism History of depression History of neuropathy -Continue home medications History of end-stage renal disease -Dialysis Sunday -Continue home medication -Dr. Flores consulted History of diabetes mellitus -Accu-Chek with sliding scale insulin -Serum glucose 165 DVT PPx, due to surgery no chemical use at this time, due to PAD no SCDs at this time Full code LOS 2 to 3 days Discharge Plan: Home Plan to discharge in: 72 Hours
[2023-12-20] MEDS: CEFEPIME 1 GM in NA CHLORIDE 0.9% 100 ML IV SCH ×2 (07:21→21:41)
[2023-12-20] MEDS ORDERED: POTASSIUM 25 MEQ EFFERV TAB PO ONE (07:25)
[2023-12-20] MEDS: NA CHLORIDE 0.9% 1,000 ML ONE (07:42)
[2023-12-20] MEDS: KCL 20 MEQ/100 mL IVPB 20 MEQ/100 ML BAG IV SCH (07:47)
[2023-12-20] MEDS: POTASSIUM CL SA 10 MEQ TAB PO ONE (17:56)
--- NOTE | 2023-12-21 01:23 | CON ---
Date of Consultation: 12/20/2023 Chief Complaint: End-stage renal disease. History Of Present Illness: The patient is admitted for left lower extremity amputation. She is a [age]-year-old woman with past medical history significant for insulin-dependent diabetes mellitus, hyper cholesterolemia, myocardial infarction, history of coronary artery disease, and previous intervention with PTCA and stents, pacemaker placement, hypothyroidism, hypertension. The patient is on dialysis 3 times per week for end-stage renal disease. She has congestive heart failure. Recent admission f or fluid overload and decompensated congestive heart failure. Patient has peripheral neuropathy and peripheral vascular disease, and she had workup done, which showed osteomyelitis of the left foot. S urgical consultation was requested, and Cardiology is seeing the patient for cardiac clearance. Review of Systems: General: Denies fever, chills. Eyes: Denies vision changes. Ears, Nose, Mouth, and Throat: Denies sore throat, earache. Respiratory: Denies wheezing, cough, hemoptysis. Cardiovascular: Denies chest pain, palpitation, syncope. GI: Denies nausea, vomiting. : Denies dysuria, hematuria. Extremities: Denies drainage or oozing. All other systems are reviewed and all are negative. Past Medical History: End-stage renal disease, hypertension, hyperlipidemia, coronary artery disease , peripheral vascular disease, hypothyroidism, diabetic foot infection, osteomyelitis, GERD, diabetic gastroparesis, depression, hyperlipidemia. Past Surgical History: , thyroidectomy, neck fusion, PD catheter placement and removal, cho lecystectomy. Family History: Mother: Heart disease, hypertension, lung disease, breast cancer. Father: Heart d isease, hypertension, Alzheimer's. Social History: Negative for tobacco or alcohol. Negative for drugs. Physical Examination: General: The patient is awake, alert, oriented x3. Not in acute distress. Neck: Supple. No JVD. No bruits. Lungs: Clear to auscultation bilaterally. No wheezing. No rhonchi. Cardiovascular: S1, S2. No pericardial friction rub. Abdomen: Soft, benign, nontender. Extremities: No drainage, no oozing. Neurological: Normal speech and no tremor. Impression And Plan: 1.End-stage renal disease. The patient will resume dialysis. The patient was found to have hypokal emia and is undergoing potassium replacement. Dialysis was adjusted with potassium dialysate to katelyn t hypokalemia. Patient is to have amputation, and Surgical team is consulted for left lower extremit y gangrenous changes. The patient will require amputation, and Cardiology is conducting workup for c ardiac clearance. 2.Coronary artery disease, atrial fibrillation, history of pacemaker, history of [id number] my ocardial infarction. Troponin is pending, and Cardiology is consulted. 3.Hypertension and hyperlipidemia. Continue treatment with blood pressure medication. Monitor chol esterol. Continue statin. 4.Anemia and chronic kidney disease. Hemoglobin is 9.4. Monitor hemoglobin level. 5.Renal osteodystrophy. Continue renal diet and binders. 6.Diabetes mellitus. Continue insulin. EB/MODL Voice ID: [id number] Report ID: [id number]
[2023-12-21 07:22] LABS: Absolute Basophils 0.1 K/uL (0-0.5); Absolute Eosinophils 0.1 K/uL (0-0.5); Absolute Lymphocytes (CBC) 0.5 K/uL (0.7-4.9); Absolute Monocytes 0.5 K/uL (0.1-1.3); Basophils % 1.4 % (0-1.3); Eosinophils % 1.7 % (0-4.4); Hematocrit 30.3 % (36.0-45.0); Hemoglobin 9.6 g/dL (12.0-15.0); Lymphocytes % 6.8 % (15.3-44.8); MCH 29.3 pg (27.0-35.0); MCHC 31.8 g/dL (32.0-36.0); MCV 92.1 fL (80-100); MPV 7.8 fL (7.6-11.3); Monocytes % 6.5 % (3.3-12.3); Neutrophils % 83.6 % (41.7-73.7); Nucleated Red Blood Cells % 0.1 % (0-0); Platelets 149 thou/uL (152-406); RBC Red Blood Cell Count 3.28 M/uL (3.86-4.86); Red Cell Distribution Width 17.8 % (12.1-15.2)
[2023-12-21 07:44] LABS: Anion Gap 12.4 mEq/L (5.0-15.0); Magnesium 1.8 mg/dL (1.6-2.4); Phosphorus 4.3 mg/dL (2.5-4.9); Potassium 3.4 mEq/L (3.5-5.1)
--- NOTE | 2023-12-21 08:19 | P.PN ---
Date of Service: 12/21/23 Subjective Awake and distressed from a Horatio last night, will stop giving Horatio Surgery this morning, surgery was postponed due to hypokalemia yesterday ROS 10 point ROS as noted above, otherwise negative Physical Exam General: AAO x3, NAD, conversing well HEENT: Atraumatic, Normocephalic Neck: Supple, 2+ carotid pulse no bruit, JVD not distended Respiratory: Clear to auscultation bilaterally, Normal air movement, 2 L nasal cannula Cardiovascular: Normal pulses, RRR, Normal S1 S2 Capillary refill: <2 Seconds Gastrointestinal: Normal active bowel sounds, Soft and benign on palpation Musculoskeletal: No swelling, Other (bilateral lower extremities with SUJIT bandage, CDI) Integumentary: Skin breakdown (multiple) Neurological: Normal speech, Normal tone Vitals Reviewed Problem list Left lower extremity gangrenous CAD Atrial fibrillation, pacemaker NSTEMI secondary to gangrene of left lower extremity Hypokalemia History of hypertension/HLD History hypothyroidism History of depression History of neuropathy History of end-stage renal disease History of diabetes mellitus Assessment and Plan Left lower extremity gangrenous S/P amputation of left great toe, left third distal phalanx S/P debridement of right great toe wounds, left lateral foot wound -Dr. Peterson consulted, likely surgery in the a.m. -Cardiac clearance by Dr. Figueroamediate cardiac risk for surgery -Cefepime and vancomycin -Wound care-dressings CDI CAD Atrial fibrillation, pacemaker NSTEMI secondary to gangrene of left lower extremity -Troponin 59.8/57.8-from flat -cardiology consulted Hypokalemia -K 2.8 -Replaced and recheck History of hypertension/HLD History hypothyroidism History of depression History of neuropathy -Continue home medications History of end-stage renal disease -Dialysis Sunday -Continue home medication -Dr. Flores consulted History of diabetes mellitus -Accu-Chek with sliding scale insulin -Serum glucose 162 DVT PPx, due to surgery no chemical use at this time, due to PAD no SCDs at this time Full code LOS 2 to 3 days Discharge Plan: Home Plan to discharge in: 72 Hours
[2023-12-21] MEDS: MAGNESIUM SULFATE 1 gm IVPB 1 GM/100 ML BAG IV ONE (10:00)
[2023-12-21] MEDS: VANCOMYCIN 1.75 GM in NA CHLORIDE 0.9% 500 ML IVPB SCH (10:11)
[2023-12-21] MEDS: NA CHLORIDE 0.9% 1,000 ML ONE (11:15)
[2023-12-21] MEDS: BUPIVACAINE 0.75% (PF) 2 ML SP ONE (11:20)
[2023-12-21] MEDS ORDERED: LIDOCAINE 1% MPF 5 ML VIAL ONE (11:26)
[2023-12-21] MEDS ORDERED: LIDOCAINE 1% MPF 2 ML AMPULE ONE ×2 (11:26→13:15)
[2023-12-21] MEDS ORDERED: propofoL 200 MG/20 ML VIAL IV ONE ×2 (11:26→13:12)
[2023-12-21] MEDS ORDERED: Phenylephrine HCl 10 MG/ML 1 ML VIAL ONE (11:36)
[2023-12-21] MEDS ORDERED: EPHEDRINE SULF 50 MG/ML VIAL ONE (11:36)
[2023-12-21] MEDS: LIDOCAINE HCL/EPINEPHRINE 20 ML MDV ONE (13:23)
--- NOTE | 2023-12-21 14:08 | P.OP ---
Preoperative diagnosis: Multiple Gangrenous toes bilateral feet, LEFT lateral chronic foot wound Postoperative diagnosis: Multiple Gangrenous toes bilateral feet, LEFT lateral chronic foot wound Primary procedure: Amputation of LEFT great toe, LEFT 3rd distal phalanx Secondary procedure: Debridement of RIGHT great toe wound, LEFT lateral foot wound Anesthesia: Spinal + Local Estimated blood loss: <5cc Specimen: Cultures, Debridement Tissue, Amputations as above Findings: 6x5cm wound of LEFT lat foot to bone, 5x5cm open Great toe wound, 1.5 R gre Complications: None Transferred to: Recovery Room Condition: Good
[2023-12-21 15:05] VITALS: O2SAT 98
--- NOTE | 2023-12-21 23:53 | OP ---
Date of Procedure: 12/21/2023 Surgeon: Avtar Peterson MD, Preoperative Diagnosis: Multiple gangrenous toes of the bilateral feet and lateral chronic foot woun d. Postoperative Diagnosis: Multiple gangrenous toes of the bilateral feet and lateral chronic foot wou nd. Procedures Performed: 1.Amputation of left great toe to metatarsophalangeal joint. 2.Left third toe amputation of distal phalanx. 3.Debridement right great toe with partial tip amputation of distal phalanx. 4.Debridement of left lateral chronic wound. Anesthesia: Spinal plus local. Estimated Blood Loss: Less than 5 cc. Specimen: Culture sent for both aerobic and anaerobic speciation, debridement of tissue, and amputat ions as above. Findings: The left lateral foot wound extending to the bone, which is approximately 6 cm x 5 cm in s ize. Left great toe wound remained open with a 5 cm x 5 cm defect. The right great toe defect was 1 .5 cm round, extending to the bone. Complications: None. Disposition: Patient transferred recovery room in good condition. Procedure In Detail: After informed was obtained, patient was brought to the operating room, prepped and draped in the usual sterile fashion. After adequate anesthesia was achieved by spinal anesthesi a, I placed additional anesthetic into the regions using 1% lidocaine with epinephrine. I then began by amputating the distal aspect of the tissue of the right great toe down to the phalanx were necros is and dry gangrenous changes were appreciated. I removed this in its entirety down to good bleeding tissue. At this point, this tissue was sent off for pathologic examination. I then used a rongeur to remove this tissue out and then smoothed it out using a rasp. I then noted that the tissue was ov erlapping this area with good protection of the bone at this point. I then packed the wound after ac hieving hemostasis with electrocautery with a Vashe-soaked dressing and a sterile dressing placed ove r top. The foot was then wrapped and elevated. At this point, I turned my attention to the left conner t and left great toe. At this point, I circumferentially dissected out an area of obvious open gangr enous changes, necrosis, abscess material emanating from the right great toe region. I circumferenti ally took it down in the distribution of the metatarsophalangeal joint circumferentially around. The re were no good flaps for possible closure as there was circumferential pus through this plane. I cu ltured for both aerobic and anaerobic speciation at this time. After this was completed with the ski n level, I then dissected it down using electrocautery and sharp dissection down to expose the metata rsophalangeal joint, which was ligated at this point, pulling the tendon into the field, and debridin g back all nonviable tissue with a combination of sharp dissection with electrocautery. After the di git was removed, the area was copiously irrigated, cleansed, and all nonviable tissue was debrided ba ck until good healthy bleeding tissue was appreciated. At this point, no reapproximation was possibl e and as such, I packed the wound with Vashe-soaked gauze and held it in place at this point. I then turned my attention to the third distal phalanx, which had dry gangrenous black changes to the tip a s well. At this point, I circumferentially dissected this down, created a T-type incision over the d orsal aspect to allow for transection between the distal and middle phalanx at the third toe on the l eft side, ultimately this using a combination of sharp and electrocautery dissection. I r emoved the distal toe. I then passed it off for pathologic examination. The area was copiously irri gated. Hemostasis was easily achieved with minimal electrocautery. The skin was then closed and ayden pproximated covering the bone quite easily with interrupted 3-0 nylon sutures with good approximation of tissue and a sterile dressing placed over top of this portion. I then turned my attention to the lateral foot wound at this point, which had evidence of significant gangrenous changes extending farnaz n to the bone. At this point, I circumferentially dissected this area out using 15 blade until all t his tissue was elevated. I then used electrocautery to dissect circumferentially down to remove this flap of nonviable tissue. I then used a rasp to smooth the bone down on this aspect and removed all nonviable tissue at the top of this until good bleeding tissue was appreciated at this point. I irr igated the area copiously, achieved hemostasis with electrocautery, and then packed this wound with s desire set of Vashe and sterile dressing was applied over top. The patient then had the foot entirely w rapped, elevated, and placed [place] over the top after appropriately irrigating the area multiple time s until completely clear. The patient tolerated the procedure well with no evidence of complication, transferred to PACU in good condition. All counts were correct at the end of the case. SOCRATES/RENÉ Voice ID: [id number] Report ID: [id number]
[2023-12-22] MEDS: KETOROLAC 30 MG/ML INJ IV ONE (00:46)
--- NOTE | 2023-12-22 02:14 | PN ---
Date of Progress Note: 12/21/2023 Chief Complaint: End-stage renal disease, severe peripheral vascular disease. Subjective: The patient is scheduled for lower extremity toe amputation. The patient has multiple m edical problems, including history of insulin-dependent diabetes mellitus; hypercholesterolemia; myoc ardial infarction; severe coronary artery disease; peripheral vascular disease, previous intervention with PTCA stent; pacemaker. The patient also has hypothyroidism and hypertension. The patient was dialyzed yesterday. Review of Systems: Denies chest pain, palpitation. Physical Examination: Lungs: Diminished breath sounds at bases. Heart: S1, S2. Abdomen: Soft. Extremities: Dressing in place. Impression And Plan: 1.End-stage renal disease. The patient will have dialysis tomorrow. Electrolytes are stable. The patient was treated for and dialysis was used with potassium dialysate of 4 to treat . 2.Lower extremity gangrenous changes. The patient is to have amputation and debridement. Cardiolog y is following for cardiac clearance. 3.Coronary artery disease. Troponin is pending. Cardiology is consulted. 4.Hypertension and hyperlipidemia. Continue current medication. 5.Anemia on chronic kidney disease. Hemoglobin is 9.4. Monitor hemoglobin level. 6.Renal osteodystrophy. Continue renal diet and binders. EB/MODL Voice ID: [id number] Report ID: [id number]
[2023-12-22 15:17] LABS: Absolute Basophils 0.1 K/uL (0-0.5); Absolute Eosinophils 0.1 K/uL (0-0.5); Absolute Lymphocytes (CBC) 0.4 K/uL (0.7-4.9); Absolute Monocytes 0.4 K/uL (0.1-1.3); Absolute Neutrophil 6.8 K/uL (1.8-8.0); Basophils % 0.9 % (0-1.3); Eosinophils % 1.6 % (0-4.4); Hematocrit 28.1 % (36.0-45.0); Hemoglobin 8.6 g/dL (12.0-15.0); Lymphocytes % 5.7 % (15.3-44.8); MCH 28.6 pg (27.0-35.0); MCHC 30.8 g/dL (32.0-36.0); MPV 8.2 fL (7.6-11.3); Monocytes % 5.2 % (3.3-12.3); Neutrophils % 86.6 % (41.7-73.7); Platelets 138 thou/uL (152-406); RBC Red Blood Cell Count 3.02 M/uL (3.86-4.86); Red Cell Distribution Width 18.4 % (12.1-15.2)
[2023-12-22 15:34] LABS: Anion Gap 8.8 mEq/L (5.0-15.0); Phosphorus 2.7 mg/dL (2.5-4.9); Potassium 3.8 mEq/L (3.5-5.1)
--- NOTE | 2023-12-22 15:41 | P.PN ---
Subjective Date of Service: 12/22/23 Chief Complaint: Left lower extremity amputation Subjective: Other (She received HD today.) Physical Examination - Vital Signs Temperature: 97.1 F Blood Pressure: 184/84 Pulse: 97 Respirations: 18 Pulse Ox (%): 94 - Physical Exam General: Other (chronically ill-appearing) HEENT: Atraumatic, Normocephalic Neck: Supple Respiratory: Other (Symmetric chest expansion) Cardiovascular: No rubs, No murmurs Gastrointestinal: Soft and benign Musculoskeletal: No clubbing Integumentary: No warmth Neurological: Normal tone Urinary: Other (no bladder distention) External genitalia: Deferred Rectal: Deferred Assessment And Plan - Plan 1. End-stage renal disease. HD received today. 2. PVD. Lower extremity gangrenous changes. The patient is to have amputation and debridement. Cardiology is following for cardiac clearance. 3. Coronary artery disease. Per other services. 4. Hypertension and hyperlipidemia. Continue current medication. 5. Anemia on chronic kidney disease. Hemoglobin is 9.4. Monitor hemoglobin level. 6. Renal osteodystrophy. Continue renal diet and binders.
[2023-12-22] MEDS ORDERED: VANCOMYCIN 1 GM in NA CHLORIDE 0.9% 250 ML IVPB SCH (18:00)
--- NOTE | 2023-12-22 18:36 | P.PN ---
Date of Service: 12/22/23 Subjective Complaining of being uncomfortable in the bed Dressing to bilateral feet with minimal blood Dialysis today ROS 10 point ROS as noted above, otherwise negative Physical Exam General: Alert and oriented x3, NAD, uncomfortable HEENT: Atraumatic, Normocephalic Neck: Supple, 2+ carotid pulse no bruit, JVD not distended Respiratory: Clear to auscultation bilaterally, symmetrical chest wall movement, 2 L nasal cannula Cardiovascular: Normal pulses, NSR, Normal S1 S2 present Capillary refill: <2 Seconds Gastrointestinal: Normal active bowel sounds, Soft and benign on palpation Musculoskeletal: No swelling, Other (bilateral lower extremities with SUJIT bandage, minimal blood present) Integumentary: Skin breakdown (multiple) Neurological: Normal speech, Normal tone Vitals Reviewed Problem list Left lower extremity gangrenous CAD Atrial fibrillation, pacemaker NSTEMI secondary to gangrene of left lower extremity Hypokalemia History of hypertension/HLD History hypothyroidism History of depression History of neuropathy History of end-stage renal disease History of diabetes mellitus Assessment and Plan Left lower extremity gangrenous S/P amputation of left great toe, left third distal phalanx S/P debridement of right great toe wounds, left lateral foot wound -Dr. Peterson and managing -Cardiac clearance by Dr. Figueroamediate cardiac risk for surgery -Cefepime and vancomycin -Wound care-dressings minimal blood present CAD Atrial fibrillation, pacemaker NSTEMI secondary to gangrene of left lower extremity -Troponin 59.8/57.8-trended flat -cardiology consulted Hypokalemiaresolved -K 3.8 -Replaced and recheck History of hypertension/HLD History hypothyroidism History of depression History of neuropathy -Continue home medications History of end-stage renal disease -Dialysis Sunday -Continue home medication -Dr. Flores consulted History of diabetes mellitus -Accu-Chek with sliding scale insulin -Serum glucose 171 DVT PPx, due to surgery no chemical use at this time, due to PAD no SCDs at this time Full code LOS 2 to 3 days Discharge Plan: Home Plan to discharge in: 72 Hours
[2023-12-22] MEDS: ONDANSETRON 4 MG/2 ML VIAL IV PRN (20:28)
[2023-12-22] MEDS ORDERED: ONDANSETRON 4 MG/2 ML VIAL IV PRN (20:30)
[2023-12-23] MEDS: CALCIUM CARBONATE CHEW 500MG TAB PO PRN (00:37)
--- NOTE | 2023-12-23 12:48 | P.DS ---
Admission Date: 12/19/23 Discharge Date: 12/23/23 Disposition: ROUTINE DISCHARGE Discharge Condition: GOOD Reason for Admission: Left lower extremity amputation Brief History of Present Illness: Diagnosis Left lower extremity gangrenous S/P amputation of left great toe, left third distal phalanx S/P debridement of right great toe wounds, left lateral foot wound CAD Atrial fibrillation, pacemaker NSTEMI secondary to gangrene of left lower extremity Hypokalemia History of hypertension/HLD History hypothyroidism History of depression History of neuropathy History of end-stage renal disease History of diabetes mellitus HPI 12/19/23 Meseret Gallego is a 68 year old female with Pmhx of Diabetes mellitusIDDM, hypercholesterolemia, myocardial infarction (with 2 stents), pacemaker present hypothyroidism, hypertension, dialysis who presents to the ED with chief complaint of left foot pain. Left foot x-ray showing bony destructive changes to the proximal phalanx likely indicating osteomyelitis." Dr Peterson consulted and plans for lower extremity amputation today after cardiology clearance. Initial vitalBP 117 / 107; Pulse 101; Resp 20; Temp 97.5(TE); Pulse Ox 99% [place] evaluation BNP greater than 175,000, BUN/creatinine 37/3.67, potassium 3.1. Chest x-ray reports "Mild interstitial pulmonary edema suspected. The heart is moderately enlarged. Sternotomy wires. Rightsided venous catheter has tip in the SVC. IMPRESSION: Mild CHF pattern." Left foot x-ray report "Bony destructive changes noted involving the proximal phalanx of the great toe distally with adjacent soft tissue ulceration. This likely indicates osteomyelitis. Prominent vascular calcifications. Large posterior and plantar calcaneal spurs." Meseret will be admitted to hospitalist service for further evaluation and treatment. Dr. Peterson and Dr. Bernabe consulted. Hospital Course: Meseret Gallego is a pleasant 68 year old female with a past medical history significant for Diabetes mellitusIDDM, hypercholesterolemia, myocardial infarction (with 2 stents), pacemaker present hypothyroidism, hypertension, ESRD on dialysis who was admitted to the [facility] on 12/19/23 for Bilateral pedal wound evaluation and treatment. Meseret Gallego presented to the ED for further evaluation and treatment of bilateral pedal wounds. Dr. Bernabe was consulted for cardiac clearance and Dr. Peterson was consulted who provided surgical intervention with an amputation of left great toe, left third distal phalanx, and debridement of right great toe wounds, left lateral foot wound on 12/21/23. She will need to complete IV antibiotic therapy through 01/03/24. Labs will need to be draw through out the week, Vancomycin trough twice a week and CBC/BMP weekly. Vancomycin will need to be renally dosed by her PCP or facility provider. Wound care instructions listed below. Dr. Flores consulted for dialysis needs. She is tolerating PO diet, surgical pain is controlled, hemodynamically stable for discharge. Dr. Peterson has also cleared her for discharge. On 12/23/23, Meseret was seen on morning rounds and deemed medically stable for discharge. Meseret was discharged with instructions to schedule follow-up appointments with PCP and Dr. Peterson. The patient was given the opportunity to ask questions and reported no further questions. Furthermore, all questions were answered to the best of my ability. A copy of this discharge summary will be sent to the above providers to facilitate continuity of care. Physical Exam General: AAO x3, no acute distress, uncomfortable HEENT: Atraumatic, Normocephalic Neck: Supple, 2+ carotid pulse no bruit, JVD not distended Respiratory: Clear to auscultation bilaterally, symmetrical chest wall movement, 2 L nasal cannula Cardiovascular: mild sinus tachycardia, Normal S1 S2 present Capillary refill: <2 Seconds Gastrointestinal: Normal active bowel sounds, Soft and benign on palpation Musculoskeletal: No swelling, Other (bilateral lower extremities with SUJIT bandage, minimal dried blood present) Integumentary: Skin breakdown (multiple) Neurological: Normal speech, Normal tone Vital Signs/Physical Exam: Temp Pulse Resp BP Pulse Ox 97.1 F 97 H 18 184/84 H 94 12/23/23 11:13 12/23/23 11:13 12/23/23 11:13 12/23/23 11:13 12/23/23 11:13 Laboratory Data at Discharge: WBC 7.80 thou/uL (4.3-10.9) 12/22/23 15:01 Hgb 8.6 g/dL (12.0-15.0) L 12/22/23 15:01 Hct 28.1 % (36.0-45.0) L 12/22/23 15:01 Plt Count 138 thou/uL (152-406) L 12/22/23 15:01 PT 13.8 SECONDS (9.5-12.5) H 12/19/23 11:13 INR 1.26 12/19/23 11:13 Sodium 139 mEq/L (136-145) 12/22/23 15:01 Potassium 3.8 mEq/L (3.5-5.1) 12/22/23 15:01 BUN 27 mg/dL (7-18) H 12/22/23 15:01 Creatinine 2.61 mg/dL (0.55-1.02) H 12/22/23 15:01 Glucose 171 mg/dL (74-106) H 12/22/23 15:01 Phosphorus 2.7 mg/dL (2.5-4.9) 12/22/23 15:01 Magnesium 2.0 mg/dL (1.6-2.4) 12/22/23 15:01 Home Medications: Amiodarone HCl [Cordarone*] 200 mg PO DAILY 06/22/23 Apixaban [Eliquis *] 2.5 mg PO BID 06/22/23 Aspirin [Aspirin EC 81 MG] 81 mg PO DAILY 06/22/23 Atorvastatin Calcium [Lipitor] 40 mg PO BEDTIME 06/22/23 Bupropion HCl [Wellbutrin Sr] 150 mg PO Q12HR 06/22/23 Insulin Glargine,Hum.rec.anlog [Insulin Glargine] 5 units SQ BEDTIME 06/22/23 Levothyroxine [Synthroid*] 125 mcg PO DAILY 06/22/23 Loratadine 10 mg PO DAILY 06/22/23 Metoprolol Succinate 25 mg PO DAILY 06/22/23 Pantoprazole [Protonix Tab*] 40 mg PO DAILY 06/22/23 Polyethylene Glycol 8000 [Polyethylene Glycol] 17 g PO DAILY PRN 06/22/23 Sacubitril/Valsartan [Entresto 24 mg-26 mg Tablet] 0.5 tab PO BID 06/22/23 Acetaminophen 325 mg PO Q4HR PRN 08/09/23 Ascorbic Acid 500 mg PO BID 08/09/23 Ferrous Sulfate 325 mg PO DAILY 08/09/23 Hydrocodone Bit/Acetaminophen [Hydrocodon-Acetaminophen 5-325] 1 tab PO PRN PRN 08/09/23 Insulin Lispro [Humalog] See Protocol SQ BEDTIME 08/09/23 Loperamide HCl [Imodium A-D] 2 mg PO 08/09/23 Melatonin 5 mg PO BEDTIME PRN PRN 08/09/23 Linezolid 600 mg PO BID 7 Days #14 tab 08/11/23 Silver Sulfadiazine Crm [Silvadene*] 1 appl TOP DAILY 14 Days #1 tube 08/11/23 Physician Discharge Instructions: Meseret Gallego presented to the ED for further evaluation and treatment of bilateral pedal wounds. Dr. Peterson was consulted and performed amputation of left great toe, left third distal phalanx, and debridement of right great toe wounds, left lateral foot wound on 12/21/23. She will need to complete IV antibiotic therapy through 01/03/24. Labs will need to be draw through out the week, Vancomycin trough twice a week and CBC/BMP weekly. Vancomycin will need to be renally dosed by her PCP or facility provider. Wound care instructions listed below. 1. Please call and schedule a follow-up appointment with your PCP in 3-5 days - Please follow-up with your PCP for medication refills/adjustments 2. Please call and schedule a follow-up appointment with Dr. Peterson in one week -wound management 3. Continue renal diet 4. activity restrictions, fall precaution 5. Return to the ED if symptoms worse IV antibiotic therapy instructions: -Cefepime 1 gram q 24H via PICC line -Vancomycin 1 g Q24h IVPB via PICC line, Next dose scheduled for 1800 on 12/22 -renally dose and check the vancomycin trough prior to administration on 12/23 -Flush PICC with 10 ml normal saline before and after medication administration -CBC and BMP weekly. -Vancomycin twice a week, Trough will need to be drawn 12/23. Vancomycin to be renally dosed -Call results to PCP or facility physician for vancomycin dosing -Remove PICC after course of antibiotics have completed. -Both antibiotic to end 01/03/24. Daily dressing changes - unwrap and irrigate all wounds - cover sutures with xeroform - pack all open wounds of bilateral feet with Vashe damp to dry, wrap and elevate senior living resident: [address] [address] P:[phone]/ F:[phone] Diet: Renal Activity: Non-weight bearing Followup: Avtar Peterson MD [ACTIVE - CAN ADMIT] - Dann Hernandez DO [Primary Care Provider] -
[2023-12-23 13:03] VITALS: BP 139/70; TEMP 97.3
[2023-12-23 13:57] LABS: Absolute Basophils 0.1 K/uL (0-0.5); Absolute Eosinophils 0.1 K/uL (0-0.5); Absolute Lymphocytes (CBC) 0.4 K/uL (0.7-4.9); Absolute Monocytes 0.4 K/uL (0.1-1.3); Absolute Neutrophil 6.9 K/uL (1.8-8.0); Basophils % 0.8 % (0-1.3); Eosinophils % 1.6 % (0-4.4); Hematocrit 29.6 % (36.0-45.0); Hemoglobin 9.2 g/dL (12.0-15.0); Lymphocytes % 4.5 % (15.3-44.8); MCH 29.3 pg (27.0-35.0); MCHC 31.2 g/dL (32.0-36.0); MCV 94.1 fL (80-100); MPV 8.2 fL (7.6-11.3); Monocytes % 4.7 % (3.3-12.3); Neutrophils % 88.4 % (41.7-73.7); Nucleated Red Blood Cells % 0.2 % (0-0); Platelets 136 thou/uL (152-406); RBC Red Blood Cell Count 3.15 M/uL (3.86-4.86); Red Cell Distribution Width 18.4 % (12.1-15.2)
[2023-12-23 14:42] LABS: Anisocytosis 1+; Blood Morphology Comment NOTED (NOT SEEN); Hypochromasia 2+; Platelet Estimate ADEQ; Poikilocytosis 1+; White Blood Cell Scan OK (OK)
[2023-12-23] MEDS: FENTANYL CITR 100 MCG/2 ML IV PRN (15:08)
--- NOTE | 2023-12-23 20:55 | P.PN ---
Subjective Date of Service: 12/23/23 Chief Complaint: Left lower extremity amputation Subjective: No new changes Physical Examination - Vital Signs Temperature: 97.3 F Blood Pressure: 139/70 Pulse: 96 Respirations: 22 Pulse Ox (%): 100 - Physical Exam General: Other (chronically ill-appearing) HEENT: Atraumatic, Normocephalic Neck: Supple Respiratory: Other (symmetric chest expansion) Cardiovascular: No rubs Gastrointestinal: Soft and benign, No guarding Musculoskeletal: No clubbing Integumentary: No warmth Neurological: Normal tone Urinary: Other (no bladder distention) External genitalia: Deferred Rectal: Deferred Assessment And Plan - Plan 1. End-stage renal disease on outpt HD MWF. HD received yesterday. Next HD tomorrow. 2. PVD. Lower extremity gangrenous changes. The patient is to have amputation and debridement. Cardiology is following for cardiac clearance. 3. Coronary artery disease. Per other services. 4. Hypertension and hyperlipidemia. Continue current medication. 5. Anemia on chronic kidney disease. Hemoglobin is 9.4. Monitor hemoglobin level. 6. Renal osteodystrophy. Continue renal diet and binders.
--- NOTE | 2023-12-24 15:13 | EKG ---
Test Date: 2023-12-19 Test Time: 10:16:10 Picture Painter: TAYLOR MEASUREMENT RESULTS: Intervals: Rate: 92 MA: 138 QRSD: 110 QT: 352 QTc: 435 [place]: P: 26 MA: 138 QRS: -37 T: 137 INTERPRETIVE STATEMENTS: Normal sinus rhythm Left axis deviation Abnormal ECG Compared to ECG 09/14/2023 11:10:03 Left-axis deviation now present Right bundle-branch block no longer present Electronically Signed On 12-24-23 14:57:24 CDT by Imer Lantigua
== END 2023-12-23 15:26 | DRG 616 ==
LOC: ER 09:49 → 4TH 12:26
PROVIDERS: ADMIT Internal Medicine; ATTEND Internal Medicine
PROC: 02HV33Z Insertion of Infusion Device into Superior Vena Cava, Percutaneous Approach (ICD-10-PCS; 2023-12-19)
PROC: 0Y6U0Z3 Detachment at Left 3rd Toe, Low, Open Approach (ICD-10-PCS; 2023-12-21)
PROC: 0Y6P0Z3 Detachment at Right 1st Toe, Low, Open Approach (ICD-10-PCS; 2023-12-21)
PROC: 0JBP0ZZ Excision of Left Lower Leg Subcutaneous Tissue and Fascia, Open Approach (ICD-10-PCS; 2023-12-21)
PROC: 0Y6Q0Z0 Detachment at Left 1st Toe, Complete, Open Approach (ICD-10-PCS; principal; 2023-12-21 11:30)
PROC: 5A1D70Z Performance of Urinary Filtration, Intermittent, Less than 6 Hours Per Day (ICD-10-PCS; 2023-12-22)
DX: E11.69 Type 2 diabetes mellitus with other specified complication (principal); I21.A1 Myocardial infarction type 2; E11.52 Type 2 diabetes mellitus with diabetic peripheral angiopathy with gangrene; I12.0 Hypertensive chronic kidney disease with stage 5 chronic kidney disease or end stage renal disease; M86.172 Other acute osteomyelitis, left ankle and foot; N18.6 End stage renal disease; E11.22 Type 2 diabetes mellitus with diabetic chronic kidney disease; E11.42 Type 2 diabetes mellitus with diabetic polyneuropathy; D63.1 Anemia in chronic kidney disease; F32.A Depression, unspecified; E87.6 Hypokalemia; N25.0 Renal osteodystrophy; I48.91 Unspecified atrial fibrillation; E03.9 Hypothyroidism, unspecified; E78.00 Pure hypercholesterolemia, unspecified; I25.10 Atherosclerotic heart disease of native coronary artery without angina pectoris; I25.2 Old myocardial infarction; Z99.2 Dependence on renal dialysis; Z95.0 Presence of cardiac pacemaker; Z88.5 Allergy status to narcotic agent; Z79.4 Long term (current) use of insulin; Z95.2 Presence of prosthetic heart valve; Z95.5 Presence of coronary angioplasty implant and graft; Z88.8 Allergy status to other drugs, medicaments and biological substances; Z79.01 Long term (current) use of anticoagulants; Z79.82 Long term (current) use of aspirin; Z90.49 Acquired absence of other specified parts of digestive tract; Z79.890 Hormone replacement therapy; Z79.899 Other long term (current) drug therapy; Z96.653 Presence of artificial knee joint, bilateral; Z91.048 Other nonmedicinal substance allergy status; Z91.158 Patient's noncompliance with renal dialysis for other reason
CPT/HCPCS: 36415; 71045; 80048; 80202; 82947; 83735; 83880; 84100; 84132; 84484; 85025; 85610; 87070; 87075; 87077; 87186; 87205; 88304; 88305; 88311; 90935; 93005; 99285; J0692; J1644; J2001; J2371; J2405; J2704; J3010; J3480; J7030; J7040

== ENCOUNTER 2023-12-26 12:19 | Emergency (ER) | payer OTHER ==
--- NOTE | 2023-12-26 12:44 | RAD REPORT ---
EXAM DESCRIPTION: CT - Ct Stroke Brain Wo Cont - 12/26/2023 12:37 pm CLINICAL HISTORY: STROKE ALERT COMPARISON: Head Brain Wo Cont dated 08/08/2023; Head Brain Wo Cont dated 07/13/2023 TECHNIQUE: All CT scans are performed using dose optimization technique as appropriate and may inclu de automated exposure control or mA/KV adjustment according to patient size. FINDINGS: No intracranial hemorrhage, hydrocephalus or extra-axial fluid collection.No areas of brai n edema or evidence of midline shift. Vertebral atherosclerosis bilaterally. The paranasal sinuses and mastoids are clear. The calvarium is intact. IMPRESSION: No acute intracranial abnormality. The findings were discussed with Dr. Uribe in the ER On 12/26/2023 at 12:35 p.m. by telephone.
--- NOTE | 2023-12-26 12:48 | RAD REPORT ---
EXAM DESCRIPTION: CT - Neck Angio - 12/26/2023 12:37 pm CLINICAL HISTORY: stroke Headache, drowsiness, CVA symptomology COMPARISON: Neck Angio dated 07/13/2023; Head C Spine Mpr Wo Con dated 10/14/2021; Head angio dated 12/25 TECHNIQUE: CT angiography of the neck vessels was performed with MIPs. All CT scans are performed using dose optimization technique as appropriate and may include automated exposure control or mA/KV adjustment according to patient size. FINDINGS: A left aortic arch is identified with normal three vessel configuration of the great vesse ls. No significant flow abnormality is seen of the common carotid bilaterally. There is moderate hard plaque present involving both common carotid arteries carotid artery bulbs. St enosis estimated between 50-70% is present right carotid bulb based on NASCET criteria. Stenosis ad mated at 70-80% is present left carotid bulb based on NASCET criteria. Antegrade flow is seen in both vertebral arteries. IMPRESSION: Moderate hard plaquing is seen in both carotid systems, greatest in the carotid bulbs bi laterally. Moderately severe carotid stenosis is present involving both carotid bulbs, slightly greater on the l eft. NASCET criteria used. Mild 0-49% stenosis Moderate 50-69% stenosis Severe 70-99% stenosis
[2023-12-26 12:51] LABS: Absolute Basophils 0.1 K/uL (0-0.5); Absolute Eosinophils 0.2 K/uL (0-0.5); Absolute Lymphocytes (CBC) 0.5 K/uL (0.7-4.9); Absolute Monocytes 0.5 K/uL (0.1-1.3); Absolute Neutrophil 6.6 K/uL (1.8-8.0); Basophils % 1.2 % (0-1.3); Eosinophils % 2.1 % (0-4.4); Hematocrit 26.7 % (36.0-45.0); Hemoglobin 8.2 g/dL (12.0-15.0); Lymphocytes % 6.5 % (15.3-44.8); MCH 28.8 pg (27.0-35.0); MCHC 30.9 g/dL (32.0-36.0); MCV 93.1 fL (80-100); Monocytes % 5.9 % (3.3-12.3); Neutrophils % 84.3 % (41.7-73.7); Platelets 144 thou/uL (152-406); RBC Red Blood Cell Count 2.86 M/uL (3.86-4.86); Red Cell Distribution Width 18.8 % (12.1-15.2)
[2023-12-26 13:09] LABS: Albumin 2.2 g/dL (3.4-5.0); Albumin/Globulin Ratio 0.6 (1.1-1.8); Anion Gap 15.4 mEq/L (5.0-15.0); Bilirubin Direct 0.3 mg/dL (0-0.2); Bilirubin Indirect, Calculated 0.2 mg/dL (0.2-0.8); Bilirubin Total 0.5 mg/dL (0.2-1.0); Globulin 3.7 g/dL (2.3-3.5); Magnesium 1.8 mg/dL (1.6-2.4); Potassium 3.4 mEq/L (3.5-5.1); Protein, Total 5.9 g/dL (6.4-8.2)
[2023-12-26 13:17] LABS: PT Prothrombin Time 13.7 SECONDS (9.5-12.5); PTT, Activated Partial Thromb 29.3 SECONDS (24.3-36.9); Protime INR 1.25
--- NOTE | 2023-12-26 13:18 | RAD REPORT ---
EXAM DESCRIPTION: CT - Head angio - 12/26/2023 12:36 pm CLINICAL HISTORY: STROKE ALERT COMPARISON: Ct Stroke Brain Wo Cont dated 12/26/2023; Head Brain Wo Cont dated 08/08/2023; Neck Angio dated 12/26/2023 TECHNIQUE: Axial CT angiography images of the head was performed with multiplanar and maximum intens ity projection reconstructions. Images performed following intravenous administration of iodinated c ontrast. All CT scans are performed using dose optimization technique as appropriate and may include automated exposure control or mA/KV adjustment according to patient size. FINDINGS: Motion artifact somewhat limits evaluation. No evidence of large vessel occlusion. Moderate plaque burden along the carotid siphons bilaterally, with focal moderate stenoses at the cavernous/communicating junctions bilaterally. No evidence of ane urysm or dissection flap is detected. No vascular malformation identified. Antegrade flow is seen in the vertebral arteries although dense atherosclerotic calcifications are pr esent along the proximal vertebral arteries, resulting in at least moderate focal stenoses. Basilar a rtery is patent to its bifurcation. The visualized dural venous sinuses are grossly patent. IMPRESSION: No evidence of large vessel occlusion. Focal moderate stenoses at the junctions of the cavernous and communicating segments of the ICAs bila terally. Focal moderate stenoses along the mid intradural vertebral arteries bilaterally.
--- NOTE | 2023-12-26 15:08 | ER ---
Nurse's Notes [facility] Name: Meseret Gallego Age: 68 yrs Sex: Female : 1955 Arrival Date: 12/26/2023 Time: 12:19 Bed 6 Private MD: Diagnosis: Muscle weakness (generalized) Presentation: 12/25 12:32 Chief complaint: EMS states: toned out to dialysis for possible stroke. Recent midline ld1 placement prior to dialysis - prior to dialysis treatment pt started c/o unable to move arms and legs. Pain to jarrett legs. Onset at 1130. Coronavirus screen: At this time, the client does not indicate any symptoms associated with coronavirus-19. Ebola Screen: No symptoms or risks identified at this time. No acute neurological deficit is noted. The patients blood glucose was checked prior to arriving to the hospital and was found to be hyperglycemic. Initial Sepsis Screen: Does the patient meet any 2 criteria? No. Patient's initial sepsis screen is negative. Does the patient have a suspected source of infection? No. Patient's initial sepsis screen is negative. Risk Assessment: Do you want to hurt yourself or someone else? Patient reports no desire to harm self or others. Onset of symptoms was December 26, 2023. 12:32 Method Of Arrival: EMS: [facility] ld1 12:32 Acuity: CHRISTOPHER 2 ld1 12:33 Care prior to arrival: IV initiated. 20 GA, in the left antecubital area. rs5 Triage Assessment: 12:34 The onset of the patients symptoms was December 26, 2023 at 11:30. General: Appears in no ld1 apparent distress. comfortable, Behavior is cooperative, anxious. Pain: Complains of pain in right arm, left arm, right leg and left leg Pain does not radiate. Pain currently is 9 out of 10 on a pain scale. Quality of pain is described as throbbing, Pain began suddenly. EENT: No signs and/or symptoms were reported regarding the EENT system. Neuro: Level of Consciousness is awake, alert, obeys commands, Oriented to person, place, time, situation, Reports numbness in right arm, left arm, right leg and left leg weakness in right arm, left arm, right leg and left leg. Cardiovascular: Capillary refill < 3 seconds Patient's skin is warm and dry. Respiratory: Airway is patent Respiratory effort is even, unlabored. GI: Abdomen is round non-distended. GI: No signs and/or symptoms were reported involving the gastrointestinal system. : No signs and/or symptoms were reported regarding the genitourinary system. Derm: No signs and/or symptoms reported regarding the dermatologic system. Musculoskeletal: No signs and/or symptoms reported regarding the musculoskeletal system. Stroke Activation: Physician: ED Attending; Name: ; Notified At: 12:17; Arrived At: Physician: Mid-Level Provider; Name: ; Notified At: 12:17; Arrived At: Physician: [not used]; Name: ; Notified At: ; Arrived At: Physician: [not used]; Name: ; Notified At: ; Arrived At: Physician: [not used]; Name: ; Notified At: ; Arrived At: Historical: - Allergies: 12:33 Codeine; ld1 12:33 Phenergan; ld1 12:33 Tape; ld1 - PMHx: 12:33 Diabetes - IDDM; Myocardial infarction; Hypothyroidism; Hypercholesterolemia; ld1 Hypertension; Dialysis; - PSHx: 12:33 2 heart stents; neck; Coronary artery bypass graft; knee; section; pacemaker ld1 (October 2023); back; - Immunization history:: Adult Immunizations up to date. - Infectious Disease History:: Denies. - Social history:: Smoking status: Patient denies any tobacco usage or history of. Screenin:36 [facility] ED Fall Risk Assessment (Adult) History of falling in the last 3 months, ld1 including since admission No falls in past 3 months (0 pts) Confusion or Disorientation No (0 pts) Intoxicated or Sedated No (0 pts) Impaired Gait No (0 pts) Mobility Assist Device Used No (0 pt) Altered Elimination No (0 pt) Score/Fall Risk Level 0 - 2 = Low Risk. Abuse screen: Denies threats or abuse. Denies injuries from another. Nutritional screening: No deficits noted. Tuberculosis screening: No symptoms or risk factors identified. 12:48 VAN Screening: Arm Drift: Minor drift. Visual Disturbance: No visual disturbance noted. es3 Aphasia: No aphasia noted. Neglect: No neglect noted. Sarai Swallow Protocol Exclusion Criteria: Exclusion Criteria Result: Proceed Brief Cognitive Screen What is your name? Normal, Where are you right now? Normal, What year is it? Normal. Oral Mechanism Examination Oral Mechanism Result: Normal. 3 oz Water Swallow Challenge: Pt able to drink all water without stopping, coughing, choking or throat clearing: Yes Result: PASS. Assessment: 12:17 Reassessment: Code stroke called at 1217. ld1 12:22 General: Appears in no apparent distress. uncomfortable, Behavior is calm, cooperative. rs5 Pain: Denies pain. Neuro: Level of Consciousness is awake, alert, obeys commands, Oriented to person, place, time, situation, Car Salesman are weak bilaterally Moves all extremities. Weakness in bilateral arm(s) leg(s) Speech is normal, Facial symmetry appears normal, Pupils are PERRLA, Pupil Size: 3 mm Intact. 12:22 Cardiovascular: Patient's skin is warm and dry. Respiratory: Airway is patent rs5 Respiratory effort is even, unlabored, Respiratory pattern is regular, symmetrical. GI: Abdomen is round non-distended, Abd is soft and non tender X 4 quads. : No signs and/or symptoms were reported regarding the genitourinary system. EENT: No signs and/or symptoms were reported regarding the EENT system. Derm: Skin is intact, Skin is pink, warm \\T\\ dry. Musculoskeletal: Range of motion: intact in all extremities, Reports numbness in arms and legs bilat. 12:36 VAN Scoring: Arm Drift: Patients demonstrates NO arm weakness. Patient is VAN Negative. ld1 [place] Swallow Protocol. Pain: Complains of pain in right leg and left leg. Neuro: Level of Consciousness is awake, alert, obeys commands, Oriented to person, place, time, situation. 13:01 [place] Swallow Protocol Exclusion Criteria: Unable to remain alert for testing: No NPO rs5 for medical/surgical reason by provider order No Head-of-bed restricted <30 degrees Tracheostomy tube present No No thin liquids due to preexisting dysphagia/baseline modified diet thickened liquids No Exclusion Criteria Result: Proceed Brief Cognitive Screen What is your name? Normal, Where are you right now? Normal, What year is it? Normal. Oral Mechanism Examination Facial Symmetry: Normal, Motion: Normal, Lip Closure: Normal, Oral Mechanism Result: Normal. 3 oz Water Swallow Challenge: Pt able to drink all water without stopping, coughing, choking or throat clearing: Yes Result: PASS Notified: Zaira Hernandez MD. 13:20 Reassessment: Pt up for discharge, [facility] called to arrange for rs5 transport, charge nurse notified, ETO 1 hour. 13:20 Reassessment: No changes from previously documented assessment. rs5 14:02 Reassessment: Awaiting transport . rs5 14:35 Reassessment: Patient and/or family updated on plan of care and expected duration. Pain rs5 level reassessed. Patient is alert, oriented x 3, equal unlabored respirations, skin warm/dry/pink. [facility] contacted to arrange for transport, nurse from [facility] states "no one called to arrange for transport but I will arrange for transport now, they should be there in about thirty minutes" charge nurse notified . 14:37 Reassessment: Patient and/or family updated on plan of care and expected duration. Pain rs5 level reassessed. Patient is alert, oriented x 3, equal unlabored respirations, skin warm/dry/pink. Neuro: Level of Consciousness is awake, alert, obeys commands, Oriented to person, place, time, situation, Car Salesman are equal bilaterally Moves all extremities. pt reports generalized weakness, provider notified. 15:00 Reassessment: report given at bedside to EMS for transport. rs5 Vital Signs: 12:42 BP 156 / 86; Pulse 82; Resp 18; Temp 97.7(O); Pulse Ox 100% on R/A; Height 5 ft. 4 in. ld1 ; Pain 9/10; 13:01 BP 152 / 86; Pulse 70; Resp 17; Pulse Ox 99% on R/A; rs5 13:30 BP 150 / 81; Pulse 77; Resp 17; Pulse Ox 99% on R/A; rs5 14:20 BP 160 / 84; Pulse 76; Resp 18; Pulse Ox 99% on R/A; rs5 14:50 BP 154 / 84; Pulse 74; Resp 17; Pulse Ox 99% on R/A; rs5 12:42 Pain Scale: Adult ld1 NIH Stroke Scale Scores: 12:20 NIHSS Score: 4 rs5 12:48 NIHSS Score: 4 es3 13:01 NIHSS Score: 4 rs5 ED Course: 12:21 Patient arrived in ED. bd 12:27 Zaira Hernandez MD is Attending Physician. sp3 12:33 Triage completed. ld1 12:34 Arm band placed on right wrist. ld1 12:36 Patient has correct armband on for positive identification. Placed in gown. Bed in low ld1 position. Call light in reach. Side rails up X2. radiation monitor on. Pulse ox on. NIBP on. Door closed. Noise minimized. Warm blanket given. 12:36 No provider procedures requiring assistance completed. Accessed Midline to BONNIE. Oxygen ld1 administration via nasal cannula \\T\\ 4L/min. 12:38 CT Head Angio In Process Unspecified. EDMS 12:38 CT Neck Angio In Process Unspecified. EDMS 12:39 CT Stroke Brain w/o Contrast In Process Unspecified. EDMS 13:57 Davis Dsouza, PERRI is Primary Nurse. rs5 15:00 IV discontinued, intact, bleeding controlled, No redness/swelling at site. Pressure rs5 dressing applied. Administered Medications: No medications were administered Medication: 15:00 VIS not applicable for this client. rs5 Outcome: 13:21 Discharge ordered by . sp3 15:00 Discharged to [facility]. Transfer form completed. Valuables list done. rs5 15:00 Condition: stable 15:00 Discharge instructions given to patient, [facility], EMS, Instructed on discharge instructions, follow up and referral plans. Demonstrated understanding of instructions, follow-up care, 15:01 Patient left the ED. ld1 NIH Stroke Scale - NIH Stroke Score Date: 12/26/2023 Time: 12:20 Total Score = 4 10. Dysarthria (speech clarity - read or repeat words) - 0(Normal) 11. Extinction and Inattention (visual/tactile/auditory/spatial/personal) - 0(No abnormality) 1a. Level of Consciousness (LOC) - 0(Alert) 1b. Level of Consciousness (LOC) (Month \\T\\ Age) - 0(Both) 1c. LOC Commands (Open \\T\\ Closes Eyes/Power Plant Mechanic) - 0(Both) 2. Best Gaze (Lateral Gaze Paresis) - 0(Normal) 3. Visual Field Loss - 0(No visual loss) 4. Facial Palsy - 0(Normal) 5a. Left Arm: Motor (10-second hold) - 1(Drift) 5b. Right Arm: Motor (10-second hold) - 1(Drift) 6a. Left Leg: Motor (5-second hold - always test supine) - 1(Drift) 6b. Right Leg: Motor (5-second hold - always test supine) - 1(Drift) 7. Limb Ataxia (finger/nose \\T\\ heel/levin - test with eyes open) - 0(Absent) 8. Sensory Loss (pinprick arms/legs/face) - 0(Normal) 9. Best Language: Aphasia (description/naming/reading) - 0(No aphasia) Initials: rs5 NIH Stroke Scale - NIH Stroke Score Date: 12/26/2023 Time: 12:48 Total Score = 4 10. Dysarthria (speech clarity - read or repeat words) - 0(Normal) 11. Extinction and Inattention (visual/tactile/auditory/spatial/personal) - 0(No abnormality) 1a. Level of Consciousness (LOC) - 0(Alert) 1b. Level of Consciousness (LOC) (Month \\T\\ Age) - 0(Both) 1c. LOC Commands (Open \\T\\ Closes Eyes/Power Plant Mechanic) - 0(Both) 2. Best Gaze (Lateral Gaze Paresis) - 0(Normal) 3. Visual Field Loss - 0(No visual loss) 4. Facial Palsy - 0(Normal) 5a. Left Arm: Motor (10-second hold) - 1(Drift) 5b. Right Arm: Motor (10-second hold) - 1(Drift) 6a. Left Leg: Motor (5-second hold - always test supine) - 1(Drift) 6b. Right Leg: Motor (5-second hold - always test supine) - 1(Drift) 7. Limb Ataxia (finger/nose \\T\\ heel/levin - test with eyes open) - 0(Absent) 8. Sensory Loss (pinprick arms/legs/face) - 0(Normal) 9. Best Language: Aphasia (description/naming/reading) - 0(No aphasia) Initials: es3 NIH Stroke Scale - NIH Stroke Score Date: 12/26/2023 Time: 13:01 Total Score = 4 10. Dysarthria (speech clarity - read or repeat words) - 0(Normal) 11. Extinction and Inattention (visual/tactile/auditory/spatial/personal) - 0(No abnormality) 1a. Level of Consciousness (LOC) - 0(Alert) 1b. Level of Consciousness (LOC) (Month \\T\\ Age) - 0(Both) 1c. LOC Commands (Open \\T\\ Closes Eyes/Power Plant Mechanic) - 0(Both) 2. Best Gaze (Lateral Gaze Paresis) - 0(Normal) 3. Visual Field Loss - 0(No visual loss) 4. Facial Palsy - 0(Normal) 5a. Left Arm: Motor (10-second hold) - 1(Drift) 5b. Right Arm: Motor (10-second hold) - 1(Drift) 6a. Left Leg: Motor (5-second hold - always test supine) - 1(Drift) 6b. Right Leg: Motor (5-second hold - always test supine) - 1(Drift) 7. Limb Ataxia (finger/nose \\T\\ heel/levin - test with eyes open) - 0(Absent) 8. Sensory Loss (pinprick arms/legs/face) - 0(Normal) 9. Best Language: Aphasia (description/naming/reading) - 0(No aphasia) Initials: rs5 Signatures: Dispatcher [employer] EDMS Jennifer Tabares Lauren, RN RN ld1 Zaira Hernandez MD MD sp3 Davis Dsouza RN RN rs5 Blossom Dunham bc6 lEsa Winston, PERRI RN es3 Corrections: (The following items were deleted from the chart) 12:34 12:32 Chief complaint: EMS states: toned out to dialysis for possible stroke. ld1 Recent midline placement prior to dialysis - prior to dialysis treatment pt started c/o unable to move arms and legs. Pain to jarrett legs. ld1 13:38 13:30 spoke with Taya at [facility] to inform her about bc6 arranging transportation bc6 16:07 13:20 Reassessment: Pt up for discharge, [facility] called to rs5 arrange for transport, charge nurse notified. rs5 16:08 15:01 Reassessment: Patient and/or family updated on plan of care and expected rs5 duration. Pain level reassessed. Patient is alert, oriented x 3, equal unlabored respirations, skin warm/dry/pink. [facility] contacted to arrange for transport, nurse from [facility] states "no one called to arrange for transport but I will arrange for transport now, they should be there in about thirty minutes" charge nurse notified . rs5 16:10 12:32 No acute neurological deficit is noted. The patients blood glucose was rs5 checked prior to arriving to the hospital and was found to be hyperglycemic. ld1 16:17 12:22 Neuro: Level of Consciousness is awake, alert, obeys commands, Oriented rs5 to person, place, time, situation, Car Salesman are weak bilaterally Moves all extremities. Weakness in bilateral arm(s) leg(s) Speech is normal, Facial symmetry appears normal, Pupils are PERRLA, Pupil Size: 3 mm Intact rs5
--- NOTE | 2023-12-26 15:08 | EDPHYS ---
Physician Documentation [facility] Name: Meseret Gallego Age: 68 yrs Sex: Female : 1955 Arrival Date: 12/26/2023 Time: 12:19 Bed 6 Private MD: ED Physician Zaira Hernandez HPI: 12/25 12:55 This 68 yrs old Female presents to ER via EMS with complaints of S/S of Possible Stroke.sp3 12:55 68-year-old female with history of diabetes, SD, hypothyroidism, hyperlipidemia, sp3 hypertension presents to the ED with chief complaint weakness bilateral upper extremities acute on chronic. No lateralized weakness, loss of speech or other changes reported by EMS or patient. Patient states she feels globally weak and now due to the global weakness she cannot move her upper extremities. Initially code stroke was activated due to EMS report of these findings being new however later it was elucidated based on other employees who have seen her in the past and patient is on history that this is acute on chronic. ROS otherwise negative.. Historical: - Allergies: 12:33 Codeine; ld1 12:33 Phenergan; ld1 12:33 Tape; ld1 - PMHx: 12:33 Diabetes - IDDM; Myocardial infarction; Hypothyroidism; Hypercholesterolemia; ld1 Hypertension; Dialysis; - PSHx: 12:33 2 heart stents; neck; Coronary artery bypass graft; knee; section; pacemaker ld1 (October 2023); back; - Immunization history:: Adult Immunizations up to date. - Infectious Disease History:: Denies. - Social history:: Smoking status: Patient denies any tobacco usage or history of. ROS: 12:59 Constitutional: Negative for fever, chills, and weight loss, Eyes: Negative for injury, sp3 pain, redness, and discharge, ENT: Negative for injury, pain, and discharge, Neck: Negative for injury, pain, and swelling, Cardiovascular: Negative for chest pain, palpitations, and edema, Respiratory: Negative for shortness of breath, cough, wheezing, and pleuritic chest pain, Abdomen/GI: Negative for abdominal pain, nausea, vomiting, diarrhea, and constipation, Back: Negative for injury and pain, Psych: Negative for depression, anxiety, suicide ideation, homicidal ideation, and hallucinations, Allergy/Immunology: Negative for hives, rash, and allergies, Endocrine: Negative for neck swelling, polydipsia, polyuria, polyphagia, and marked weight changes, 12:59 All other systems are negative, Exam: 12:59 Constitutional: This is a well developed, well nourished patient who is awake, alert, sp3 and in no acute distress. Head/Face: Normocephalic, atraumatic. Eyes: Pupils equal round and reactive to light, extra-ocular motions intact. Lids and lashes normal. Conjunctiva and sclera are non-icteric and not injected. Cornea within normal limits. Periorbital areas with no swelling, redness, or edema. ENT: Nares patent. No nasal discharge, no septal abnormalities noted. External auditory canals are clear. Oropharynx with no redness, swelling, or masses, exudates, or evidence of obstruction, uvula midline. Mucous membranes moist. Neck: Trachea midline, no thyromegaly or masses palpated, and no cervical lymphadenopathy. Supple, full range of motion without nuchal rigidity, or vertebral point tenderness. No Meningismus. Chest/axilla: Normal chest wall appearance and motion. Nontender with no deformity. No lesions are appreciated. Cardiovascular: Regular rate and rhythm with a normal S1 and S2. No gallops, murmurs, or rubs. Normal PMI, no JVD. No pulse deficits. Respiratory: Lungs have equal breath sounds bilaterally, clear to auscultation and percussion. No rales, rhonchi or wheezes noted. No increased work of breathing, no retractions or nasal flaring. Abdomen/GI: Soft, non-tender, with normal bowel sounds. No distension or tympany. No guarding or rebound. No evidence of tenderness throughout. Skin: Warm, dry with normal turgor. Normal color with no rashes, no lesions, and no evidence of cellulitis. 12:59 Neuro: Stroke scale at 3-4 based on upper extremity weakness however this is again chronic and bilateral. Remainder of neuroexam is normal. Gait not tested., 13:10 ECG was reviewed by the Attending Physician. EKG demonstrates normal sinus rhythm at 84 sp3 bpm with normal intervals except QTc of 503, sinus arrhythmia and nonspecific diffuse ST's ST changes without evidence of acute ischemia. Vital Signs: 12:42 BP 156 / 86; Pulse 82; Resp 18; Temp 97.7(O); Pulse Ox 100% on R/A; Height 5 ft. 4 in. ld1 ; Pain 9/10; 13:01 BP 152 / 86; Pulse 70; Resp 17; Pulse Ox 99% on R/A; rs5 13:30 BP 150 / 81; Pulse 77; Resp 17; Pulse Ox 99% on R/A; rs5 14:20 BP 160 / 84; Pulse 76; Resp 18; Pulse Ox 99% on R/A; rs5 14:50 BP 154 / 84; Pulse 74; Resp 17; Pulse Ox 99% on R/A; rs5 12:42 Pain Scale: Adult ld1 NIH Stroke Scale Scores: 12:20 NIHSS Score: 4 rs5 12:48 NIHSS Score: 4 es3 13:01 NIHSS Score: 4 rs5 MDM: 12:28 Patient medically screened. sp3 13:01 Data reviewed: vital signs, nurses notes, EMS record, old medical records, lab test sp3 result(s), EKG, radiologic studies. ED course: 68-year-old female with global weakness and bilateral acute on chronic upper extremity weakness from dialysis. PMH above. Stroke alert was called however initial workup is negative from a CT standpoint and patient is not a candidate for any acute stroke intervention. Remainder of workup pending and if workup is negative we will discharge patient home to PCP follow-up and outpatient dialysis to be rescheduled.. 13:19 ED course: Workup negative and CT scans demonstrate no acute abnormality. Patient is at sp3 her baseline and we will safely discharged home at this time. She states she will reschedule her dialysis.. 12/25 12:29 Order name: Basic Metabolic Panel; Complete Time: 13:18 sp3 12/25 12:29 Order name: CBC with Diff; Complete Time: 13:18 sp3 12/25 12:29 Order name: Hepatic Function; Complete Time: 13:18 sp3 12/25 12:29 Order name: High Sensitivity Troponin; Complete Time: 13:18 sp3 12/25 12:29 Order name: Magnesium; Complete Time: 13:18 sp3 12/25 12:29 Order name: Protime (+inr); Complete Time: 13:18 3 12/25 12:29 Order name: Ptt, Activated; Complete Time: 13:18 sp3 12/25 12:51 Order name: Glucose, Ancillary Testing; Complete Time: 13:18 EDMS 12/25 12:29 Order name: CT Head Angio; Complete Time: 13:19 sp3 12/25 12:29 Order name: CT Neck Angio; Complete Time: 13:18 sp3 12/25 12:29 Order name: CT Stroke Brain w/o Contrast; Complete Time: 13:18 sp3 12/25 12:29 Order name: EKG; Complete Time: 12:30 sp3 12/25 12:29 Order name: Accucheck; Complete Time: 12:41 sp3 12/25 12:29 Order name: Cardiac monitoring; Complete Time: 12:41 sp3 12/25 12:29 Order name: EKG - Nurse/Tech; Complete Time: 12:41 sp3 12/25 12:29 Order name: IV Saline Lock; Complete Time: 12:41 sp3 12/25 12:29 Order name: Labs collected and sent; Complete Time: 12:41 sp3 12/25 12:29 Order name: NPO; Complete Time: 12:42 sp3 12/25 12:29 Order name: O2 Per Protocol; Complete Time: 12:42 sp3 12/25 12:29 Order name: O2 Sat Monitoring; Complete Time: 12:42 sp3 12/25 12:29 Order name: Stroke Swallow Screen; Complete Time: 12:42 sp3 Administered Medications: No medications were administered Disposition Summary: 12/26/23 13:21 Discharge Ordered Notes: Location: Home sp3 Condition: Stable sp3 Diagnosis - Muscle weakness (generalized) sp3 Followup: sp3 - With: Private Physician - When: Upon discharge from the Emergency Department - Reason: Continuance of care Discharge Instructions: - Discharge Summary Sheet sp3 - Weakness sp3 Forms: - Medication Reconciliation Form sp3 - Antibiotic Education sp3 - Prescription Opioid Use sp3 - Patient Portal Instructions sp3 - Leadership Thank You Letter sp3 NIH Stroke Scale - NIH Stroke Score Date: 12/26/2023 Time: 12:20 Total Score = 4 10. Dysarthria (speech clarity - read or repeat words) - 0(Normal) 11. Extinction and Inattention (visual/tactile/auditory/spatial/personal) - 0(No abnormality) 1a. Level of Consciousness (LOC) - 0(Alert) 1b. Level of Consciousness (LOC) (Month \T\ Age) - 0(Both) 1c. LOC Commands (Open \T\ Closes Eyes/Commodities Broker) - 0(Both) 2. Best Gaze (Lateral Gaze Paresis) - 0(Normal) 3. Visual Field Loss - 0(No visual loss) 4. Facial Palsy - 0(Normal) 5a. Left Arm: Motor (10-second hold) - 1(Drift) 5b. Right Arm: Motor (10-second hold) - 1(Drift) 6a. Left Leg: Motor (5-second hold - always test supine) - 1(Drift) 6b. Right Leg: Motor (5-second hold - always test supine) - 1(Drift) 7. Limb Ataxia (finger/nose \T\ heel/levin - test with eyes open) - 0(Absent) 8. Sensory Loss (pinprick arms/legs/face) - 0(Normal) 9. Best Language: Aphasia (description/naming/reading) - 0(No aphasia) Initials: rs5 NIH Stroke Scale - NIH Stroke Score Date: 12/26/2023 Time: 12:48 Total Score = 4 10. Dysarthria (speech clarity - read or repeat words) - 0(Normal) 11. Extinction and Inattention (visual/tactile/auditory/spatial/personal) - 0(No abnormality) 1a. Level of Consciousness (LOC) - 0(Alert) 1b. Level of Consciousness (LOC) (Month \T\ Age) - 0(Both) 1c. LOC Commands (Open \T\ Closes Eyes/Commodities Broker) - 0(Both) 2. Best Gaze (Lateral Gaze Paresis) - 0(Normal) 3. Visual Field Loss - 0(No visual loss) 4. Facial Palsy - 0(Normal) 5a. Left Arm: Motor (10-second hold) - 1(Drift) 5b. Right Arm: Motor (10-second hold) - 1(Drift) 6a. Left Leg: Motor (5-second hold - always test supine) - 1(Drift) 6b. Right Leg: Motor (5-second hold - always test supine) - 1(Drift) 7. Limb Ataxia (finger/nose \T\ heel/levin - test with eyes open) - 0(Absent) 8. Sensory Loss (pinprick arms/legs/face) - 0(Normal) 9. Best Language: Aphasia (description/naming/reading) - 0(No aphasia) Initials: es3 NIH Stroke Scale - NIH Stroke Score Date: 12/26/2023 Time: 13:01 Total Score = 4 10. Dysarthria (speech clarity - read or repeat words) - 0(Normal) 11. Extinction and Inattention (visual/tactile/auditory/spatial/personal) - 0(No abnormality) 1a. Level of Consciousness (LOC) - 0(Alert) 1b. Level of Consciousness (LOC) (Month \T\ Age) - 0(Both) 1c. LOC Commands (Open \T\ Closes Eyes/Commodities Broker) - 0(Both) 2. Best Gaze (Lateral Gaze Paresis) - 0(Normal) 3. Visual Field Loss - 0(No visual loss) 4. Facial Palsy - 0(Normal) 5a. Left Arm: Motor (10-second hold) - 1(Drift) 5b. Right Arm: Motor (10-second hold) - 1(Drift) 6a. Left Leg: Motor (5-second hold - always test supine) - 1(Drift) 6b. Right Leg: Motor (5-second hold - always test supine) - 1(Drift) 7. Limb Ataxia (finger/nose \T\ heel/levin - test with eyes open) - 0(Absent) 8. Sensory Loss (pinprick arms/legs/face) - 0(Normal) 9. Best Language: Aphasia (description/naming/reading) - 0(No aphasia) Initials: rs5 Signatures: Dispatcher [employer] EDMS Marcia Crespo, PERRI RN ld1 Zaira Hernandez MD MD sp3 Corrections: (The following items were deleted from the chart) 12:29 12:29 Head Angio+CT.RAD.BRZ ordered. EDMS EDMS 12:29 12:29 Neck Angio+CT.RAD.BRZ ordered. EDMS EDMS 12:30 12:29 CT-STROKE BRAIN W/O CONTRAST+CT.RAD.BRZ ordered. EDMS EDMS 12:30 12:30 Chest Single View+RAD.RAD.BRZ ordered. EDSD EDMS 12:59 12:55 68-year-old female with history of diabetes, SD, hypothyroidism, sp3 hyperlipidemia, hypertension presents to the ED with chief complaint weakness bilateral upper extremities and. sp3
[2023-12-26 15:13] VITALS: BP 156/86; TEMP 97.7; O2SAT 100
== END 2023-12-26 15:01 | disposition home or self-care (01) ==
LOC: ER 12:19
DX: M62.81 Muscle weakness (generalized) (principal); Z99.2 Dependence on renal dialysis
CPT/HCPCS: 85025; 80048; 36415; 83735; 85610; 82947; 80076; 85730; 84484; 70496; 70498; 70450; Q9967; 93005